=== PATIENT | female | born 1940 | race Caucasian/White ===

== ENCOUNTER → 2020-05-12 17:11 | Outpatient (CLI) | payer MEDICARE, SELFPAY ==
[2020-05-12 20:18] LABS: Thyroid Stimulating Hormone 2.09 uIU/mL (0.465-4.68)
[2020-05-14 20:02] LABS: Vitamin B12 >2000 pg/mL (232-1245)
== END ==
PROVIDERS: Visit Provider Nurse Practitioner Family
DX: F32.9 Major depressive disorder, single episode, unspecified (principal); G31.84 Mild cognitive impairment of uncertain or unknown etiology; R29.2 Abnormal reflex; Z68.29 Body mass index [BMI] 29.0-29.9, adult
CPT/HCPCS: 36415; 82607; 84443

== ENCOUNTER → 2020-05-20 12:15 | Outpatient (CLI) | payer MEDICARE, SELFPAY ==
[2020-05-20 12:34] LABS: Blood Urea Nitrogen 15 mg/dl (7-17); Estimated Glomerular Filt Rate 96 ml/min (>60); GFR (African American) 116 ML/MIN (>60)
--- NOTE | 2020-05-20 12:42 | MR_ITS ---
PROCEDURE: MR LUMBAR SPINE WO/W CON CLINICAL INDICATION: back pain, headache HX 3 BACK SURGERIES LAST ONE WAS IN 98. BILATERAL LBP [id number]. FALLING FREQUENTLY. RT LEG PAIN, NUMBNESS, AND TINGLING. NO PRIOR. COMPARISON: MR BRW/O MRI-BRAIN W/O from 10/25/2016 TECHNIQUE: Standard multiplanar multiecho sequences are performed without and with contrast. 3-D MIP and myelographic images are also rendered and reviewed FINDINGS: There is normal alignment. Spinal cord ends at the L1-L2 level. T12-L1: Unremarkable. L1-L2: Unremarkable. L2-L3: Unremarkable. L3-L4: There is mild degenerative disc disease with bulging disc along with facet and ligamentum hypertrophy with resultant bilateral lateral recess and foraminal narrowing also with canal stenosis 9 mm. L4-5: There are postsurgical changes at L4-5 with artifact. There is a disc spacer device. There has been prior posterior laminectomy. There is 2 mm anterolisthesis of L4. Artifact is present at this level which somewhat obscures fine detail. No canal stenosis is evident. There is mild bilateral foraminal narrowing from the facet hypertrophy. No evidence of enhancing epidural fibrosis. L5-S1: Degenerate disc disease with mild bulging disc with facet and ligamentum hypertrophy. There is moderate right-sided foraminal narrowing and mild left foraminal narrowing. The there is a small central disc protrusion/herniation very slightly eccentric toward the left Incidental note is made of multiple small bilateral renal cysts IMPRESSION: 1. L3-L4: There is mild degenerative disc disease with bulging disc along with facet and ligamentum hypertrophy with resultant bilateral lateral recess and foraminal narrowing also with canal stenosis 9 mm. 2. L4-5: There are postsurgical changes at L4-5 with artifact. There is a disc spacer device. There has been prior posterior laminectomy. There is 2 mm anterolisthesis of L4. Artifact is present at this level which somewhat obscures fine detail. No canal stenosis is evident. There is mild bilateral foraminal narrowing from the facet hypertrophy. No evidence of enhancing epidural fibrosis. 3. L5-S1: Degenerate disc disease with mild bulging disc with facet and ligamentum hypertrophy. There is moderate right-sided foraminal narrowing and mild left foraminal narrowing. The there is a small central disc protrusion/herniation very slightly eccentric toward the left which abuts the medial aspect of the right S1 nerve root without displacement Dictated b Alfred Delcid MD 05/21/2020 11:35 Alfred Delcid MD in [facility] 05/21/2020 11:35
--- NOTE | 2020-05-20 14:08 | CT_ITS ---
PROCEDURE: CT HEAD/BRAIN WO/W CON CLINICAL INDICATION: back pain, headache Extreme dizziness with headache COMPARISON: MR BRW/O MRI-BRAIN W/O from 10/25/2016 TECHNIQUE: IV Contrast: 100ML OPITRAY 320 Axial images obtained. All CT scans at the facility use one or more dose reduction, viz: automated exposure control, ma/kV adjustment per patient size (including targeted exams where dose is matched to indication, i.e. head), or iterative reconstruction technique. FINDINGS: No midline shift, mass effect, intracranial hemorrhage, hydrocephalus, or extra-axial fluid collection is evident. There is generalized atrophy with hypoattenuation of the periventricular white matter consistent with microangiopathic changes. In the inferior aspect of the left frontal lobe there is a prominent cortical draining vein with a caput medusa sign along the inferior aspect of the anterior horn the left lateral ventricle consistent with a prominent venous angioma. The calvarium has an unremarkable appearance. No mastoid effusion . Mild mucosal thickening noted of the ethmoid sinuses. IMPRESSION: 1. Left frontal venous angioma. No evidence of acute intracranial hemorrhage. This may have been present on the old MRI of 10/25/2016 but not readily apparent due to lack of contrast enhancement. 2. Involutional changes of age with mild atrophy and mild periventricular ischemic gliotic changes 3. No acute intracranial findings Dictated b Alfred Delcid MD 05/21/2020 12:07 Alfred Delcid MD in [facility] 05/21/2020 12:07
== END ==
PROVIDERS: PCP Family Medicine; Visit Provider Specialist
DX: R51 Headache; M54.5 Low back pain; G31.84 Mild cognitive impairment of uncertain or unknown etiology; H81.13 Benign paroxysmal vertigo, bilateral
CPT/HCPCS: 36415; 70470; 72158; 76376; 82565; 84520; A9576; Q9967

== ENCOUNTER 2020-06-05 15:00 | Outpatient (RCR) | payer MEDICARE, SELFPAY ==
--- NOTE | 2020-06-02 17:24 | [facility].PTOPEV ---
PT Outpatient Evaluation Rehab PT Outpatient Evaluation Start: 06/02/20 15:57 Freq: Status: Active Protocol: Document 06/02/20 15:57 [id number] (Rec: 06/02/20 17:24 PDESEROUX [id number]) Electronically Signed By Bradley Das, PT 06/02/20 15:57 Outpatient Therapy Subjective History Subjective History Pt. is a 79 year old female who presents to outpatient PT clinic w/ complaints of subacute and constant LBP! of insidious onset 1 month ago. Pt. reports symptoms all the way across my LB, but denies radicular symptoms into BLEs. Pt. reports having 3 LB surgeries in the past. Recent diagnostic imaging(see MRI) positive for severe OA per pt. report. Pt. denies injections for current pathology, but does reports symptom relief w/ Prednisone pack. Pt. RTMD in 2 months from 05/27/20. Pt. returns to [facility] on 06/04/20. Pt. also presents w/ complaints of chronic and positional dependent dizziness /nausea of insidious onset 2.5 years ago. Pt. reports symptoms worsen w/ bending over while standing, standing from a seated position, and lying down. Recent diagnostic imaging(see CT scan of brain) positive for a L frontal venous angioma. Pt. reports a fullness in the R ear. Current medications include Combigan, Dorzolamide, Durezol , Ranexa, Amlodipine, Omeprazole, Hydralazine, Metformin, Losartan, Carvedilol, Coumadin, [place], Xanax, Vitamin B-12, and Valsartan. PMH includes L3/L4/ L5 spinal fusion, lumbar laminectomy, R SIMONA, Total Hysterectomy, Cholecystectomy, Appendectomy, Triple CABG, Cardiomegaly, Diabetes, 7
== END 2020-07-02 12:00 | disposition home or self-care (01) ==
LOC: PT.CARL 15:00
PROVIDERS: PCP Family Medicine; Visit Provider Specialist
DX: R51 Headache (principal); M48.061 Spinal stenosis, lumbar region without neurogenic claudication
CPT/HCPCS: 97010; 97014; 97110; 97140; 97163; G0283

== ENCOUNTER 2021-05-27 16:00 | Outpatient (RCR) | payer MEDICARE, SELFPAY | END 2021-05-28 14:00 | disposition home or self-care (01) | LOC: PT.CARL 16:00 | PROVIDERS: PCP Family Medicine; Visit Provider Orthopaedic Surgery Hand Surgery | DX: S52.501A Unspecified fracture of the lower end of right radius, initial encounter for closed fracture (principal) | CPT/HCPCS: 97010; 97014; 97110; 97140; 97163; G0283 ==

== ENCOUNTER 2023-12-30 19:39 | Emergency (ER) | payer MEDICARE, SELFPAY ==
[2023-12-30] VITALS (10 sets, daily range): BP systolic 120–188; BP diastolic 53–81; PULSE 74–89; RESP 15–20; TEMP 36.6–36.9; O2SAT 94–99; BMI 23.6
--- NOTE | 2023-12-30 19:38 | XR_ITS ---
PROCEDURE INFORMATION: Exam: XR Chest Exam date and time: 12/30/2023 8:04 PM Age: 83 years old Clinical indication: Injury or trauma; Fall; Blunt trauma (contusions or hematomas); Additional info: Fall, AMS TECHNIQUE: Imaging protocol: Radiologic exam of the chest. Views: 1 view. COMPARISON: CR XR HUMERUS LT 12/30/2023 8:04 PM FINDINGS: Lungs: No airspace consolidation. Pleural spaces: Unremarkable. No pleural effusion. No pneumothorax. Heart/Mediastinum: Unremarkable. No cardiomegaly. Vasculature: Aortic calcification. Bones/joints: Previous median sternotomy. Osteopenia. Degenerative change involving the shoulders and spine. IMPRESSION: No acute process.
--- NOTE | 2023-12-30 19:38 | CT_ITS ---
PROCEDURE INFORMATION: Exam: CT Cervical Spine Without Contrast Exam date and time: 12/30/2023 7:54 PM Age: 83 years old Clinical indication: Injury or trauma; Fall; Additional info: Fall, AMS TECHNIQUE: Imaging protocol: Computed tomography of the cervical spine without contrast. Radiation optimization: All CT scans at this facility use at least one of these dose optimization techniques: automated exposure control; mA and/or kV adjustment per patient size (includes targeted exams where dose is matched to clinical indication); or iterative reconstruction. COMPARISON: CT HEAD/BRAIN WO CON 12/30/2023 7:54 PM FINDINGS: Bones/joints: Nonspecific straightening. Vertebral body height and AP alignment is preserved. Moderate degenerative change about the dens. Mild to moderate prevertebral osteophytosis. Advanced bilateral facet joint degenerative change. No acute cervical spine fracture. No definite high-grade central canal stenosis within limitations of technique. Multilevel cervical foraminal stenoses. Lungs: Lung apices are normal. Pleural spaces: No visible pneumothorax. Vasculature: Vascular calcification. Soft tissues: Unremarkable. IMPRESSION: No acute cervical spine fracture.
--- NOTE | 2023-12-30 19:38 | CT_ITS ---
PROCEDURE INFORMATION: Exam: CT Head Without Contrast Exam date and time: 12/30/2023 7:54 PM Age: 83 years old Clinical indication: Injury or trauma; Patient HX: Fall yesterday, found today; Additional info: Fall, AMS TECHNIQUE: Imaging protocol: Computed tomography of the head without contrast. Radiation optimization: All CT scans at this facility use at least one of these dose optimization techniques: automated exposure control; mA and/or kV adjustment per patient size (includes targeted exams where dose is matched to clinical indication); or iterative reconstruction. COMPARISON: CT HEAD/BRAIN WO/W CON 05/20/2020 3:07 PM FINDINGS: Brain: Atrophy and chronic small vessel ischemic changes. No hemorrhage. No mass effect or midline shift. Cerebral ventricles: No ventriculomegaly. Paranasal sinuses: Visualized sinuses are unremarkable. No fluid levels. Mastoid air cells: Visualized mastoid air cells are well aerated. Bones/joints: Unremarkable. No acute fracture. Soft tissues: Unremarkable. IMPRESSION: Chronic changes in the brain but no acute intracranial abnormality.
--- NOTE | 2023-12-30 19:51 | CT_ITS ---
PROCEDURE INFORMATION: Exam: CT Pelvis Without Contrast; Skeletal Exam date and time: 12/30/2023 8:01 PM Age: 83 years old Clinical indication: Injury or trauma; Fall; Additional info: Fall, bilteral hi and midline pain TECHNIQUE: Imaging protocol: Computed tomography of the pelvis without contrast. Exam focused on the skeleton. Radiation optimization: All CT scans at this facility use at least one of these dose optimization techniques: automated exposure control; mA and/or kV adjustment per patient size (includes targeted exams where dose is matched to clinical indication); or iterative reconstruction. COMPARISON: CT LUMBAR SPINE WO CON 12/30/2023 7:59 PM FINDINGS: Limitations: Artifact arising from right hip arthroplasty hardware. Stomach and bowel: Diverticulosis without visible diverticulitis. Reproductive: Previous hysterectomy. Vasculature: Vascular calcification. Bones/joints: Osteopenia. There are degenerative changes involving the lumbar spine, sacroiliac joints and left hip joint. Diffuse osteopenia. Previous right hip arthroplasty. No acute fracture or dislocation. Soft tissues: Small fat containing umbilical hernia. IMPRESSION: No acute osseous abnormality.
--- NOTE | 2023-12-30 19:51 | XR_ITS ---
PROCEDURE INFORMATION: Exam: XR Left Shoulder Exam date and time: 12/30/2023 8:04 PM Age: 83 years old Clinical indication: Injury or trauma; Fall; Blunt trauma (contusions or hematomas); Shoulder; Left; Additional info: Fall, L ehoulder and elbow pain TECHNIQUE: Imaging protocol: Radiologic exam of the left shoulder. Views: 2 or more views. COMPARISON: CR XR HUMERUS LT 12/30/2023 8:04 PM FINDINGS: Bones/joints: Osteopenia. There are degenerative changes. No acute fracture or dislocation. Soft tissues: Normal. IMPRESSION: No acute osseous abnormality.
--- NOTE | 2023-12-30 19:51 | XR_ITS ---
PROCEDURE INFORMATION: Exam: XR Left Humerus Exam date and time: 12/30/2023 8:04 PM Age: 83 years old Clinical indication: Injury or trauma; Fall; Blunt trauma (contusions or hematomas); Arm, upper; Left; Additional info: Fall, L ehoulder and elbow pain TECHNIQUE: Imaging protocol: Radiologic exam of the left humerus. Views: 2 or more views. COMPARISON: CR XR SHOULDER LT MIN 2V 12/30/2023 8:04 PM FINDINGS: Bones/joints: Osteopenia. There are degenerative changes. No acute fracture or dislocation. Soft tissues: Normal. IMPRESSION: No acute osseous abnormality.
--- NOTE | 2023-12-30 19:51 | CT_ITS ---
PROCEDURE INFORMATION: Exam: CT Abdomen And Pelvis Without Contrast Exam date and time: 12/30/2023 8:05 PM Age: 83 years old Clinical indication: Injury or trauma; Fall; Additional info: Fall, abd pain TECHNIQUE: Imaging protocol: Computed tomography of the abdomen and pelvis without contrast. Radiation optimization: All CT scans at this facility use at least one of these dose optimization techniques: automated exposure control; mA and/or kV adjustment per patient size (includes targeted exams where dose is matched to clinical indication); or iterative reconstruction. COMPARISON: CT BONY PELVIS 12/30/2023 8:01 PM FINDINGS: Liver: Nodular hepatic margins concerning for hepatic cirrhosis. Gallbladder and bile ducts: Previous cholecystectomy. Pancreas: Normal. No ductal dilation. Spleen: There are indeterminate splenic hypodensities measuring up to 1 cm. Adrenal glands: Normal. No mass. Kidneys and ureters: There are indeterminate lesions involving the bilateral kidneys measuring up to 1.2 cm. There are bilateral renal cysts measuring up to 1.2 cm on the left and 3.3 cm on the right. Symmetric bilateral perinephric infiltration, nonspecific however typically chronic. No hydronephrosis or hydroureter. Stomach and bowel: Diverticulosis without diverticulitis. Appendix: No evidence of appendicitis. Intraperitoneal space: Unremarkable. No free air. No significant fluid collection. Vasculature: Vascular calcification. Lymph nodes: Unremarkable. No enlarged lymph nodes. Urinary bladder: Unremarkable as visualized. Reproductive: Previous hysterectomy. Bones/joints: There are degenerative changes involving the spine. Chronic left L3 transverse process fracture. Chronic appearing compression fracture at T11. Previous right hip arthroplasty. Previous fusion and laminectomy at L4-L5. Degenerative change involving the left hip joint. Soft tissues: Small fat containing umbilical hernia. IMPRESSION: 1. No definite acute abnormality involving the abdomen or pelvis within constraints of noncontrast examination. 2. Indeterminate bilateral renal hypodensities as above, nonemergent ultrasound may be considered. 3. Additional nonemergent findings as above. COMMENTS: Consistent with the [employer]'s Incidental Findings Committee white paper (J Am Lefty Radiol 2018): Any incidental renal lesion less than 1 cm or classified as too small to characterize, or any incidental cystic renal lesion characterized as simple-appearing, is likely benign. No follow-up imaging is recommended for these lesions per consensus recommendations based on imaging criteria.
--- NOTE | 2023-12-30 19:51 | CT_ITS ---
PROCEDURE INFORMATION: Exam: CT Thoracic Spine Without Contrast Exam date and time: 12/30/2023 7:57 PM Age: 83 years old Clinical indication: Injury or trauma; Fall; Additional info: Fall, midline t/l spine pain TECHNIQUE: Imaging protocol: Computed tomography of the thoracic spine without contrast. Radiation optimization: All CT scans at this facility use at least one of these dose optimization techniques: automated exposure control; mA and/or kV adjustment per patient size (includes targeted exams where dose is matched to clinical indication); or iterative reconstruction. COMPARISON: MR LUMBAR SPINE WO/W CON 05/20/2020 12:57 PM FINDINGS: Bones/joints: No acute fracture. Normal alignment. No significant disc bulge or herniation. No severe spinal canal stenosis. No significant neural foraminal narrowing. Soft tissues: Unremarkable. IMPRESSION: Unremarkable CT Spine.
--- NOTE | 2023-12-30 19:51 | CT_ITS ---
PROCEDURE INFORMATION: Exam: CT Lumbar Spine Without Contrast Exam date and time: 12/30/2023 7:59 PM Age: 83 years old Clinical indication: Injury or trauma; Fall; Additional info: Fall, midline t/l spine pain TECHNIQUE: Imaging protocol: Computed tomography of the lumbar spine without contrast. Radiation optimization: All CT scans at this facility use at least one of these dose optimization techniques: automated exposure control; mA and/or kV adjustment per patient size (includes targeted exams where dose is matched to clinical indication); or iterative reconstruction. COMPARISON: MR LUMBAR SPINE WO/W CON 05/20/2020 12:57 PM FINDINGS: Bones/joints: Mild loss of superior endplate height at T11 is chronic in appearance. Remainder demonstrates preserved height and AP alignment. Previous interbody fusion at L4-L5 with laminectomy. [id number] prevertebral osteophytosis. Bilateral facet joint degenerative change. No acute lumbar spine fracture. Chronic fracture involving the left L3 transverse process. Central canal stenosis greatest at L3-L4, at least moderate. Vasculature: Vascular calcification. Soft tissues: Unremarkable. IMPRESSION: 1. No acute osseous abnormality. 2. Suspect at least moderate central canal stenosis at L3-L4.
--- NOTE | 2023-12-30 19:51 | CT_ITS ---
PROCEDURE INFORMATION: Exam: CT Chest Without Contrast; Diagnostic Exam date and time: 12/30/2023 8:05 PM Age: 83 years old Clinical indication: Injury or trauma; Fall; Additional info: Right chest wall pain TECHNIQUE: Imaging protocol: Diagnostic computed tomography of the chest without contrast. Radiation optimization: All CT scans at this facility use at least one of these dose optimization techniques: automated exposure control; mA and/or kV adjustment per patient size (includes targeted exams where dose is matched to clinical indication); or iterative reconstruction. COMPARISON: CR XR CHEST PORTABLE 12/30/2023 8:04 PM FINDINGS: Lungs: Scarring at the lung apices. Pulmonary emphysema. Bilateral posterior dependent hypoventilatory change, mild. No airspace consolidation. No pulmonary contusion or laceration. Pleural spaces: Unremarkable. No pneumothorax. No pleural effusion. Heart: Unremarkable. No cardiomegaly. No pericardial effusion. Lymph nodes: Calcified mediastinal and right hilar lymph nodes. Vasculature: Aortic calcification without aneurysm. Diaphragm: Small hiatal hernia. Liver: Nodular hepatic morphology concerning for hepatic cirrhosis. Pancreas: Pancreatic atrophy. Spleen: There are indeterminate splenic hypodensities measuring up to 1 cm. Kidneys and ureters: There are small indeterminate superior left renal lesions, ultrasound may be considered. Bones/joints: There are degenerative changes involving the spine. Previous median sternotomy. Mild loss of superior endplate height at T11 is chronic in appearance. Soft tissues: Unremarkable. IMPRESSION: 1. No acute abnormality involving the chest. 2. Nonemergent findings as above.
--- NOTE | 2023-12-30 19:51 | XR_ITS ---
PROCEDURE INFORMATION: Exam: XR Left Elbow Exam date and time: 12/30/2023 8:04 PM Age: 83 years old Clinical indication: Injury or trauma; Fall; Blunt trauma (contusions or hematomas); Elbow; Left; Additional info: Fall, L ehoulder and elbow pain TECHNIQUE: Imaging protocol: Radiologic exam of the left elbow. Views: 3 or more views. COMPARISON: CR XR HUMERUS LT 12/30/2023 8:04 PM FINDINGS: Tubes, catheters and devices: IV catheter at the antecubital fossa. Bones/joints: Osteopenia. No acute fracture or dislocation. Soft tissues: Normal. IMPRESSION: No acute osseous abnormality.
--- NOTE | 2023-12-30 19:53 | XR_ITS ---
PROCEDURE INFORMATION: Exam: XR Left Hip Exam date and time: 12/30/2023 8:04 PM Age: 83 years old Clinical indication: Injury or trauma; Fall; Blunt trauma (contusions or hematomas); Left; Hip; Additional info: Fall, bilateral hip pain TECHNIQUE: Imaging protocol: Radiologic exam of the left hip. Views: 2 or 3 views hip with pelvis when performed. COMPARISON: CT BONY PELVIS 12/30/2023 8:01 PM FINDINGS: Bones/joints: Previous right hip arthroplasty. No hardware failure. Diffuse osteopenia. Degenerative change involving the lumbar spine, sacroiliac joints and left hip joint. No definite acute fracture or dislocation. Soft tissues: Unremarkable. Vasculature: Vascular calcification. IMPRESSION: No acute osseous abnormality.
--- NOTE | 2023-12-30 19:53 | XR_ITS ---
PROCEDURE INFORMATION: Exam: XR Left Femur Exam date and time: 12/30/2023 8:04 PM Age: 83 years old Clinical indication: Injury or trauma; Fall; Blunt trauma; Thigh or upper leg; Left; Additional info: Fall, L hip and femur pain TECHNIQUE: Imaging protocol: Radiologic exam of the left femur. Views: 2 views. COMPARISON: CR XR HIP LT 2-3V W/PELVIS 12/30/2023 8:04 PM FINDINGS: Bones/joints: There are degenerative changes. Diffuse osteopenia. No definite acute fracture or dislocation. Soft tissues: Unremarkable. Vasculature: Vascular calcification. IMPRESSION: No acute osseous abnormality.
[2023-12-30 19:56] LABS: Basophils % 0.4 % (0.1-2.0); Eosinophils # 0.1 K/mm3 (0.0-0.4); Eosinophils % 0.6 % (0.1-12.0); Hemoglobin 12.4 g/dL (12.2-16.2); Mean Corpuscular HGB Conc 33.4 g/dL (31.8-35.4); Mean Corpuscular Hemoglobin 36.3 pg (27.0-31.2); Mean Corpuscular Volume 108.7 fl (81-99); Mean Platelet Volume 8.8 fl (7.4-10.4); Monocytes # 0.6 K/mm3 (0.1-1.0); Monocytes % 4.6 % (1.7-9.3); Neutrophils # 10.6 K/mm3 (1.8-7.8); Neutrophils % 86.4 % (37.0-80.0); Platelet Count 113 K/mm3 (142-424); Red Blood Count 3.41 M/mm3 (4.20-5.40); White Blood Count 12.3 K/mm3 (4.8-10.8)
[2023-12-30 19:57] LABS: MANUAL DIFFERENTIAL MANUAL DIFFERENTIAL (MANUAL DIFF)
--- NOTE | 2023-12-30 20:05 | ED_ITS ---
Discharge Plan Disposition Patient Disposition: Still a Patient Chief Complaint: Fall Prescriptions Prescriptions: No Action warfarin 2 mg tablet 2 mg PO .COMPLEX Rx Instructions: 2 mg PO tues,thus,sun; warfarin [Coumadin] 2.5 mg tablet 1.5 mg PO .COMPLEX Rx Instructions: 1.5 mg PO mon,wed,fri,,sat; on odd numbered days carvedilol 6.25 mg tablet 6.25 mg PO Q8H Rx Instructions: must administer with a meal/food hydrocodone-acetaminophen 5-325 mg tablet 1 tab PO QHS PRN valsartan 160 mg tablet 160 mg PO DAILY 30 Days Qty: 30 ranolazine 500 mg tablet extended release 12 hr 1,000 mg PO BID 30 Days Qty: 120 omeprazole 40 mg capsule,delayed release(DR/EC) 40 mg PO DAILY 30 Days Qty: 30 metformin 500 mg tablet extended release 24 hr 500 mg PO BID 90 Days Qty: 180 alprazolam 0.5 mg tablet 0.25 mg PO HS 30 Days Qty: 15 amlodipine 10 mg tablet 10 mg PO DAILY atorvastatin 80 mg tablet 80 mg PO DAILY 90 Days Qty: 90 dorzolamide 2 % drops OPHTHALMIC 37 Days difluprednate 0.05 % drops OPHTHALMIC 25 Days brimonidine-timolol 0.2-0.5 % drops OPHTHALMIC 37 Days hydralazine 10 mg tablet 10 mg PO BID 90 Days Qty: 180 aspirin 81 mg tablet,chewable 81 mg PO DAILY duloxetine 60 mg capsule,delayed release(DR/EC) 60 mg PO DAILY 30 Days Qty: 30 2RF methylprednisolone [Medrol ([place])] 4 mg tablets,dose pack See Rx Instructions PO PER PKG DIR Qty: 21 1RF Rx Instructions: Take as directed now and refill as needed for severe back pain nystatin-triamcinolone 100,000-0.1 unit/gram-% ointment 1 applic TOPICAL DAILY Qty: 30 3RF Referrals Follow up/Referrals: Jay Howell MD [Primary Care Provider] - See instructions Clinical Impressions Clinical Impression: Fall, CHI (closed head injury), Dehydration, Acute hypokalemia Discharge ED Provider: Yuval Solares General Adult HPI General Chief complaint: Fall Stated complaint: Fall Time Seen by Provider: 12/30/23 19:40 History of Present Illness HPI narrative: This is an 83-year-old female with history of hypertension, hyperlipidemia, CAD status post CABG currently on Coumadin presenting with fall and altered mental status. Patient was found down today. She states the last time she was standing was yesterday evening, 12/28 in the PM. She was in the bathroom and accidentally stumbled backward hitting her head and back on the floor. Laid there for approximately 10 hours, if not more. She is unsure. She was found by unknown person, EMS was called and brought patient to the emergency department. Patient complaining of left-sided shoulder and arm pain, left-sided hip pain, chest wall pain, head and neck pain, abdominal pain, etc. States that she remembers some of the event, but most of it is fuzzy. Denies vision changes, chest pain, shortness of breath, nausea or vomiting, or any other concerns at this time. Related Data Home Medications Medication Instructions Recorded Confirmed alprazolam 0.5 mg tablet 0.25 mg PO HS 30 days #15 tabs 12/25/18 05/27/20 amlodipine 10 mg tablet 10 mg PO DAILY 12/25/18 05/27/20 aspirin 81 mg chewable tablet 81 mg PO DAILY 12/25/18 05/27/20 atorvastatin 80 mg tablet 80 mg PO DAILY 90 days #90 tabs 12/25/18 05/27/20 brimonidine 0.2 %-timolol 0.5 % ophthalmic (eye) 37 days 12/25/18 05/27/20 eye drops difluprednate 0.05 % eye drops ophthalmic (eye) 25 days 12/25/18 05/27/20 dorzolamide 2 % eye drops ophthalmic (eye) 37 days 12/25/18 05/27/20 hydralazine 10 mg tablet 10 mg PO BID 90 days #180 tabs 12/25/18 05/27/20 metformin 500 mg tablet,extended 500 mg PO BID 90 days #180 tabs 12/25/18 05/27/20 release 24 hr omeprazole 40 mg capsule,delayed 40 mg PO DAILY 30 days #30 caps 12/25/18 05/27/20 release ranolazine 500 mg tablet,extended 1,000 mg PO BID 30 days #120 tabs 12/25/18 05/27/20 release,12 hr valsartan 160 mg tablet 160 mg PO DAILY 30 days #30 tabs 12/25/18 05/27/20 carvedilol 6.25 mg tablet 6.25 mg PO Q8H 05/12/20 05/27/20 hydrocodone 5 mg-acetaminophen 325 1 tab PO QHS PRN 05/12/20 05/27/20 mg tablet warfarin 2 mg tablet 2 mg PO .COMPLEX 05/12/20 05/27/20 warfarin 2.5 mg tablet (Coumadin) 1.5 mg PO .COMPLEX 05/12/20 05/27/20 Previous Rx's Medication Instructions Recorded duloxetine 60 mg capsule,delayed 60 mg PO DAILY 30 days #30 caps 05/27/20 release methylprednisolone 4 mg tablets in See Rx Instructions PO PER PKG DIR 05/27/20 a dose pack (Medrol ([place])) #21 tabs nystatin-triamcinolone 100,000 1 applic topical DAILY #30 grams 07/15/21 unit/gram-0.1 % topical ointment Allergies Allergy/AdvReac Type Severity Reaction Status Date / Time morphine Allergy Unknown Verified 05/27/20 08:49 macrodantin Allergy Intermediate Uncoded 05/12/20 15:30 [facility] Disclaimer: The information contained in this section may have been updated after the patient was seen, as this information can be updated by other users. Social History Smoking Status: Former smoker alcohol intake: never substance use type: denies use current occupational status: retired Travel in the last 8 weeks: None household members: spouse housing: house ROS Obtained: Yes All systems reviewed & no additional complaints except as documented Physical Exam General General appearance: alert and in no apparent distress Head Head exam: atraumatic, normocephalic and other (Tenderness to the occiput) Eye Eye exam: Present normal appearance, PERRL, EOMI and other (Bilateral chemosis) ENT ENT exam: Present mucous membranes dry Neck Neck exam: Present trachea midline and tenderness (Cervical spine, placed in collar) Chest Chest inspection: Present tenderness (Left-sided chest wall. No outward signs of injury or deformity) Respiratory Respiratory exam: Present normal lung sounds bilaterally; Absent respiratory distress, wheezes, stridor, accessory muscle use or prolonged expiratory phase Cardiovascular Cardiovascular exam: Present regular rate and normal rhythm Abdominal Exam Abdominal exam: Present soft and tenderness; Absent distention, guarding, rebound or rigidity Abdominal tenderness: Present diffuse and mild Extremities Exam Extremities exam: Present other (Bruising about bilateral lower extremities. Tender in left inguinal fold. Active and passive range of motion of the hips intact, but limited secondary to discomfort.); Absent edema Back Exam Back exam: Present tenderness (Wound entire spine, no outward signs of injury, deformity, step-offs, or otherwise) Neurological Exam Neurological exam: Present alert, oriented X3, CN II-XII intact and normal gait; Absent motor sensory deficit Skin Skin exam: Present warm and dry; Absent diaphoresis or erythema Medical Decision Making Medical Records Medical records reviewed: Yes I reviewed the patient's medical records. [place] Inquiry Pt receiving controlled substance: No [place] was queried for this patient: No Vital Signs: 12/30/23 19:39 12/30/23 19:49 12/30/23 20:30 Temperature 98.3 F Temperature Source Oral Pulse Rate 81 74 Pulse Rate [Right Brachial] 81 Respiratory Rate 18 20 19 Blood Pressure 179/81 H 179/71 H Blood Pressure [Right Arm] 188/77 H Blood Pressure Mean 141 112 Blood Pressure Mean [Right Arm] 114 Blood Pressure Source [Right Arm] Automatic Cuff Blood Pressure Position [Right Arm] Supine 02 Sat by Pulse Oximetry 99 98 99 Oxygen Delivery Method Room Air 12/30/23 21:00 12/30/23 21:30 12/30/23 22:00 Temperature Temperature Source Pulse Rate 84 78 76 Pulse Rate [Right Brachial] Respiratory Rate 15 20 18 Blood Pressure 158/71 H 168/73 H 175/71 H Blood Pressure [Right Arm] Blood Pressure Mean 100 104 104 Blood Pressure Mean [Right Arm] Blood Pressure Source [Right Arm] Blood Pressure Position [Right Arm] 02 Sat by Pulse Oximetry 98 97 98 Oxygen Delivery Method Room Air Room Air 12/30/23 22:31 Temperature Temperature Source Pulse Rate 77 Pulse Rate [Right Brachial] Respiratory Rate 16 Blood Pressure 185/70 H Blood Pressure [Right Arm] Blood Pressure Mean 100 Blood Pressure Mean [Right Arm] Blood Pressure Source [Right Arm] Blood Pressure Position [Right Arm] 02 Sat by Pulse Oximetry 98 Oxygen Delivery Method Room Air Lab Data Lab Results 12/30/23 19:38: VBG pH 7.41, VBG pCO2 33.6 L, VBG pO2 48.9 H, VBG HCO3 20.7 L, V BG Total CO2 21.7 L, VBG O2 Saturation 83.5 H, VBG Base Excess -4.0 L, VBG Lactic Acid 2.4 H 12/30/23 19:46: WBC 12.3 H, RBC 3.41 L, Hgb 12.4, Hct 37.0, MCV 108.7 H, MCH 36.3 H, MCHC 33.4, RDW 14.0, Plt Count 113 L, MPV 8.8, Neut % (Auto) 86.4 H, L ymph % (Auto) 8.0 L, [place] % (Auto) 4.6, Eos % (Auto) 0.6, Baso % (Auto) 0.4, N eut # (Auto) 10.6 H, Lymph # (Auto) 1.0, [place] # (Auto) 0.6, Eos # (Auto) 0.1, Baso # (Auto) 0.0, Total Counted 100, Neutrophils % (Manual) 83 H, Lymphocytes % (Manual) 13, Monocytes % (Manual) 4, Platelet Estimate Slight decrease, Macrocytosis 2+, PT 30.3 H, INR 3.02 H, Sodium 137, Potassium 3.3 L, Chloride 106, Carbon Dioxide 21 L, Anion Gap 13.3, BUN 19 H, Creatinine 0.70, Estimated Creat Clear 40, Estimated GFR 80, Est GFR ( Amer) 96, Glucose 131 H, Calcium 9.3, Total Bilirubin 1.4 H, AST 46 H, ALT 47, Alkaline Phosphatase 71, T otal Creatine Kinase 172 H, Troponin I 0.05 H, NT-Pro-B Natriuret Pep 1870 H, Total Protein 6.8, Albumin 4.1, Globulin 2.7, Albumin/Globulin Ratio 1.5 12/30/23 21:35: Urine Color Yellow, Urine Appearance Slightly cloudy, Urine pH 6.0, Ur Specific [place] 1.020, Urine Protein 2+, Urine Glucose (UA) Negative, Urine Ketones Negative, Urine Blood Trace-i, Urine Nitrate Negative, Urine Bilirubin Negative, Urine Urobilinogen 0.2, Ur Leukocyte Esterase Negative, Urine RBC Occasional, Urine WBC None, Ur Squamous Epith Cells Occasional, Urine Bacteria None, Hyaline Casts 3-5 12/30/23 19:46 12/30/23 19:46 Orders (Tests/Meds): ED MEDICATIONS Discontinued Medications Generic Name Dose Route Start Last Admin Trade Name Freq PRN Reason Stop Dose Admin Bacitracin 1 gm 12/30/23 21:52 12/30/23 22:16 Bacitracin Zinc Oint 30gm Tube TP 12/30/23 21:53 1 applic ONCE ONE Administration Lactated Ringer's 1,000 mls @ 999 mls/hr 12/30/23 19:38 12/30/23 21:09 Lactated Ringer's 1000 Ml Bag IV 12/30/23 20:38 999 mls/hr .Q1H1M ONE Administration ORDERS Category Date Time Status CT abdomen pelvis wo con Stat Cat Scan 12/30/23 19:[address] bony pelvis Stat Cat Scan 12/30/23 19:[address] cervical spine wo con Stat Cat Scan 12/30/23 19:[address] chest wo con Stat Cat Scan 12/30/23 19:[address] head/brain wo con Stat Cat Scan 12/30/23 19:[address] lumbar spine wo con Stat Cat Scan 12/30/23 19:[address] thoracic spine wo con Stat Cat Scan 12/30/23 19:51 Completed CXR --portable [XR chest portable] Stat Exams 12/30/23 19:38 Completed Elbow XR left mininum 3 views [XR elbow LT min 3V] Stat Exams 12/30/23 19:51 Completed Femur XR left 2 views [XR femur LT 2V] Stat Exams 12/30/23 19:53 Completed Hip XR left minimum 2 views [XR hip LT 2-3V w/pelvis] Exams 12/30/23 19:53 Completed Stat Humerus XR left [XR humerus LT] Stat Exams 12/30/23 19:51 Completed XR shoulder LT min 2V Stat Exams 12/30/23 19:51 Completed Brain Natriuretic Peptide Stat Lab 12/30/23 19:46 Completed CBC w/Auto Diff [Complete Blood Count Auto Diff] Stat Lab 12/30/23 19:46 Completed CK [Creatine Kinase] Stat Lab 12/30/23 19:46 Completed CMP [Comprehensive Metabolic Panel] Stat Lab 12/30/23 19:46 Completed INR [Prothrombin Time INR] Stat Lab 12/30/23 19:46 Completed Trop I [Troponin I] Stat Lab 12/30/23 19:46 Completed Troponin I Q3H Lab 12/30/23 22:45 Ordered Troponin I Q3H Lab 12/31/23 01:45 Ordered UA [Urinalysis and Microscopic] Stat Lab 12/30/23 21:35 Completed VBG [Venous Blood Gas] Stat RT 12/30/23 19:38 Completed Medical Decision Narrative: This is an 83-year-old female with history of hypertension, hyperlipidemia, CAD status post CABG currently on Coumadin presenting with fall and altered mental status. Patient was found down today. She states the last time she was standing was yesterday evening, 12/28 in the PM. She was in the bathroom and accidentally stumbled backward hitting her head and back on the floor. Laid there for approximately 10 hours, if not more. She is unsure. She was found by unknown person, EMS was called and brought patient to the emergency department. Patient complaining of left-sided shoulder and arm pain, left-sided hip pain, chest wall pain, head and neck pain, abdominal pain, etc. States that she remembers some of the event, but most of it is fuzzy. Denies vision changes, chest pain, shortness of breath, nausea or vomiting, or any other concerns at this time. History was obtained via conversation with patient. On arrival, patient hemodynamically stable, alert, oriented x4, appropriate, GCS 15, moving all extremities spontaneously, pupils equal and reactive to light. Full physical exam performed and significant for chronically ill-appearing woman in no acute distress. She has tenderness about the posterior aspect of her head without hematoma. No basilar skull or depressed skull fracture findings. Midline cervical spinal tenderness without step-off or deformity, placed in c- collar. Chest wall tenderness, left upper extremity tenderness, left hip tenderness, left lower extremity bruising and tenderness, but range of motion intact and neurovascularly intact. Patient has diffuse spinal tenderness without outward signs of injury or deformity. Differential includes intracranial bleed, cervical spine injury, cord injury, thoracic or lumbar spine injury, left extremity fracture, dislocation, sprain, strain, ACS, OK, pneumothorax, metabolic abnormality, rhabdomyolysis, among others Patient was given fluid bolus for symptomatic management and correction of underlying abnormalities. Workup independently interpreted and significant for leukocytosis 12.3. INR 3.0. VBG with normal pH, lactate 2.4. Mild hypokalemia. CK only mildly elevated at 172, patient given IV fluids for this. Initial BNP 1870, troponin 0.05. Chest x-ray without acute cardiopulmonary airspace disease. Left upper extremity films negative, no evidence of left hip fracture. CT head without acute intracranial hemorrhage, CT C, T, L-spine without acute fracture. CT chest without contrast without left-sided rib fractures. See radiology read for full review of final results. Independent interpretation of EKG shows sinus rhythm with sinus arrhythmia. [address] or T wave changes concerning for acute ischemia. OK, QRS, QT intervals within normal notes. Patient was placed in observation beginning at 8 PM in order to vomiting OK with delta troponins and determine need for admission versus home-going. The patient was provided fluids, monitoring while awaiting results. Prior to delta troponin and disposition, care ended up to coming physician. Critical Care Critical Care Time Critical Care Time: No
[2023-12-30 20:06] LABS: Alanine Aminotransferase 47 U/L (12-78); Albumin Level 4.1 g/dl (3.5-5.0); Albumin/Globulin Ratio 1.5 (1.1-1.8); Alkaline Phosphatase 71 U/L (38-126); Anion Gap 13.3 mEq/L (5-15); Aspartate Amino Transferase 46 U/L (14-36); Bilirubin,Total 1.4 mg/dl (0.2-1.3); Blood Urea Nitrogen 19 mg/dl (7-17); Calcium 9.3 mg/dl (8.4-10.2); Carbon Dioxide 21 mmol/L (22.0-30.0); Chloride 106 mmol/L (98-107); Creatine Kinase 172 U/L (30-135); Creatinine Clearance Estimated 40 mL/min (50-200); Estimated Glomerular Filt Rate 80 ml/min (>60); GFR (African American) 96 ML/MIN (>60); Globulin 2.7 g/dL (1.3-3.2); Glucose 131 mg/dl (74-100); Potassium 3.3 mmoL/L (3.5-5.1); Sodium 137 mmol/L (136-145); Total Protein,Serum 6.8 g/dl (6.3-8.2)
[2023-12-30 20:11] LABS: Lactate Venous 2.4 mmol/L (0.4-2.0); VBG HCO3 20.7 mmol/L (23-30); VBG Oxygen Saturation 83.5 % (50-70); VBG PCO2 33.6 mmol/L (35-51); VBG PH 7.41 mmol/L (7.31-7.41); VBG PO2 48.9 mmol/L (28-40); VBG Total CO2 21.7 mmol/L (23-27)
[2023-12-30 20:18] LABS: NT Pro Brain Natriuretic Pep. 1870 pg/mL (0-450); Troponin I 0.05 ng/ml (0.00-0.034)
[2023-12-30 20:23] LABS: INR 3.02 (0.9-1.1); Prothrombin Time 30.3 seconds (10.1-12.5)
--- NOTE | 2023-12-30 20:27 | ECG_ITS ---
APPROVED REPORT Exam: Resting ECG HR:78 bpm ECG Measurements Heart Rate 78 AXES ID 154 P 85 QRSd 86 QRS 72 QT 290 T 98 QTc 323 Conclusion SINUS RHYTHM sinus arrhythmia Electronically signed by : MEG ARRIAZA, 12/30/2023 23:58:21
[2023-12-30] MEDS: LACTATED RINGERS 1000ML 1,000 ML 999 ML IV (21:09)
[2023-12-30 21:13] LABS: Lymphocytes % 13 % (10-50); Macrocytosis 2+; Monocytes % 4 % (2-9); Neutrophils % 83 % (42-76); Platelet Estimate Slight Decrease; Total Cells Counted 100
[2023-12-30 21:41] LABS: Microscopic, Urine URINE MICROSCOPIC (MICROSCOPIC)
[2023-12-30 21:44] LABS: Bilirubin,Urine Negative (Negative); Blood, Urine TRACE-I (Negative); Color,Urine YELLOW (Yellow); Glucose,Urine (UA) Negative (Negative); Ketones,Urine Negative (Negative); Leukocyte Esterase,Urine Negative (Negative); Nitrate,Urine Negative (Negative); Protein,Urine 2+ (Negative); Urobilinogen,Urine 0.2 EU/dl (0.2)
[2023-12-30 21:55] LABS: Appearance,Urine Slightly Cloudy (Clear)
[2023-12-30] MEDS: BACITRACIN ZINC OINT 30GM TUBE TP (22:16)
[2023-12-30 22:17] LABS: RBC,Urine Occasional #/hpf (0-3); Squamous Epithelial Cell,Urine Occasional #/hpf (0-5)
--- NOTE | 2023-12-30 22:41 | PC.NURSE ---
checked in on pt, we cleaned and dressed skin tears on left arm and elbow. family is at bedside and she has no concerns at this time.
[2023-12-30 23:25] LABS: Troponin I 0.04 ng/ml (0.00-0.034)
== END 2023-12-30 23:47 | disposition home or self-care (01) ==
PROVIDERS: Emergency Medicine; Emergency Provider Emergency Medicine; PCP Emergency Medicine
DX: R41.82 Altered mental status, unspecified (principal); M25.512 Pain in left shoulder; M79.602 Pain in left arm; M25.552 Pain in left hip; R51.9 Headache, unspecified; M54.2 Cervicalgia; R07.89 Other chest pain; R10.9 Unspecified abdominal pain; E86.0 Dehydration; E87.6 Hypokalemia; W01.198A Fall on same level from slipping, tripping and stumbling with subsequent striking against other object, initial encounter; Z87.891 Personal history of nicotine dependence
CPT/HCPCS: 70450; 71045; 71250; 72125; 72128; 72131; 72192; 73030; 73060; 73080; 73502; 73552; 74176; 80053; 81001; 82550; 82803; 83880; 84484; 85007; 85025; 85610; 93005; 96360; 99285

== ENCOUNTER 2024-03-02 12:22 | Inpatient (IN) | payer MEDICARE, SELFPAY ==
[2024-03-02] VITALS (17 sets, daily range): BP systolic 123–182; BP diastolic 71–110; PULSE 131–142; RESP 16–28; TEMP 36.5–37.1; O2SAT 91–98; BMI 22.3; BMI 24.2
--- NOTE | 2024-03-02 12:23 | ECG_ITS ---
APPROVED REPORT Exam: Resting ECG HR:131 bpm ECG Measurements Heart Rate 131 AXES QRSd 118 QRS 72 QT 419 T 91 QTc 496 Conclusion ATRIAL FLUTTER/TACHYCARDIA WITH RAPID VENTRICULAR RESPONSE SEPTAL MYOCARDIAL INFARCTION , OF INDETERMINATE AGE [40+ ms Q WAVE IN V1/V2] MODERATE T-WAVE ABNORMALITY, CONSIDER LATERAL ISCHEMIA [-0.1+ mV T-WAVE IN I/aVL/V5/V6] MODERATE T-WAVE ABNORMALITY, CONSIDER INFERIOR ISCHEMIA [-0.1+ mV T-WAVE IN II/aVF] ABNORMAL ECG UNCONFIRMED REPORT Electronically signed by : MELANIE ALONSO, 03/03/2024 06:02:00
--- OUTSIDE RECORDS SUMMARY | 2024-03-02 12:33 | XMS_ITS | Continuity of Care Document ---
Author Name Unknown Address [address] [place] [id number] Organization [facility] Phone Care Team Providers Care Specimen Processor Name Role Phone KAVITHA MORALES Admitting KAVITHA MORALES Primary Attending [phone] KAVITHA MORALES Unavailable KEVIN RIBERA Primary Care ALLERGIES AND ADVERSE REACTIONS ALLERGIES AND ADVERSE REACTIONS Code System Allergy Substance Adverse Reaction Date Reaction (Severity) Comment Status Reported By Updated By [id number] RXNorm MACRODANTIN Rash Adverse reaction to substance mouth swells active [id number] on January 20, 2024 8:42:51 PM [facility] 7052 RXNorm MORPHINE Adverse reaction to substance pain active [id number] on January 20, 2024 8:42:51 PM [facility] FAMILY HISTORY RELATION: Father Status: Cause of : Malignant neoplastic disease Age at : 71 SNOMED-CT Diagnosis Age At Onset Information not available RELATION: Mother Status: Cause of : Malignant neoplastic disease Age at : 91 SNOMED-CT Diagnosis Age At Onset Information not available RELATION: Brother Status: Cause of : Unknown Age at : Unknown SNOMED-CT Diagnosis Age At Onset Information not available RELATION: Brother Status: Cause of : Unknown Age at : Unknown SNOMED-CT Diagnosis Age At Onset Information not available RELATION: Brother Status: Cause of : CVA - cerebrovascular accident due to cerebral artery occlusion Age at : Unknown SNOMED-CT Diagnosis Age At Onset Information not available RELATION: Sister Status: LIVING SNOMED-CT Diagnosis Age At Onset Information not available RELATION: Sister Status: Cause of : Malignant neoplastic disease Age at : Unknown SNOMED-CT Diagnosis Age At Onset Information not available RESULTS Patient: MICHELE SKYLER Rajat Date of : [birth year] 0 LABORATORY RESULTS Information is not available LABORATORY NARRATIVE RESULTS Information is not available RADIOLOGY RESULTS ORDER 100: MRI EXTREM UPR ROLAN INT LT WO (LOINC: 29544-0) ORDER DATE: January 20, 2024 5:22:00 PM [facility] PERFORMING LAB: [facility] [address] [id number] Final Result Date: January 20, 2024 7:32:[address] [place] [address] Name: SKYLER BAUTISTA Exam Date: 01/20/2024 : 1940 Age 83 years Gender: F Physician: KAVITHA MORALES Facility: [facility] Facility HSV: Outpatient Exam: MRI EXTREM UPR JOINT LT WO FINAL REPORT CLINICAL HISTORY: worsening chronic shoulder pain. lrom no known injury FINDINGS: Multiplanar MR imaging of the left shoulder was performed without contrast. There is motion on many of the images which decreases the sensitivity of the exam. There is a high-grade full-thickness tear of the distal supraspinatus tendon. A small portion of the tendon may be intact. There is mild muscle atrophy. There is a complete tear of the distal infraspinatus tendon. The tendon is retracted to the medial humeral head. There is mild muscle atrophy. There is moderate a.c. joint arthrosis. A small amount of fluid is present in the subacromial/subdeltoid bursa. No labral tear is identified. The long head of the biceps tendon is intact. No significant glenohumeral joint effusion is identified. The musculature is intact. There is no evidence of soft tissue mass or cyst. IMPRESSION: High-grade full-thickness tear of the distal supraspinatus tendon with mild muscle atrophy. Complete tear of the distal infraspinatus tendon with retraction to the medial humeral head and mild muscle atrophy. Moderate a.c. joint arthrosis with mild subacromial/subdeltoid bursitis. Reviewed, Interpreted and Dictated by Ramón Veliz III, MD Transcribed by Shauna Michael Authenticated and [facility] Dictated By: Ramón Veliz III Transcribed By: Transcribed On: 01/20/2024 3:32 PM Electronically signed by: Ramón Veliz III 01/20/2024 Thank you for referring SKYLER BAUTISTA to [facility]. Legally authenticated by CHANTAL Thornton III, MD 2024-01-20 15:32:00 PATHOLOGY NARRATIVE RESULTS Information is not available MICROBIOLOGY RESULTS No Micro Labs/Results Exist for Patient BLOOD ADMIN RESULTS Information is not available MEDICATIONS HOME MEDICATIONS Status RXNORM NDC Medication Dose Route Frequency Dates Comments Reported By Updated By Drug Treatment Unknown DISCHARGE MEDICATIONS Status RXNORM NDC Medication Dose Route Frequency Dates Comments Physician Updated By No Discharge Medication Info rmation Available INPATIENT MEDICATIONS Status RXNORM NDC Medication Dose Route Frequency Rat e Quantity Dates Comments Physician Updated By No Inpatient Medication Info rmation Available SOCIAL HISTORY SOCIAL HISTORY SNOMED-CT Social History Element Description Effective Dates Offered Cessation Comment UpdatedBy [id number] Historical Tobacco smoking status Never Smoked Not Applicable [id number] on April 07, 2016 4:52:02 AM [facility] [id number] Historical Tobacco smoking status Former Smoker Yes [id number] on June 09, 2015 6:14:54 PM [facility] SOCIAL HISTORY - Gender Sex: Female SOCIAL HISTORY - Status : status i nformation is not available Intention in Next Year: intention information is not available SOCIAL HISTORY - Sexual Behavior Sexual Orientation Gender Identity SNOMED-CT Description SNO MED -CT Description Activity Level No of Partners Partner Type UpdatedBy Information is not available HEALTH CONCERNS Problems Concern Status Health Concern problem infor mation not available. Smoking Status Status Years Used Consumed packs p er day Health Concern smoking histo ry information not available. Family History Concern Status Health Concern family histor y information not available. ENCOUNTERS ENCOUNTER INFORMATION Reason for Visit M25.512 Admission January 20, 2024 5:10:[address] [id number] Discharge January 20, 2024 5:10:00 PM [facility] DIS CHARGED TO HOME OR SELF CARE ENCOUNTER DIAGNOSES Notes information is not juan manuel ilable. Code System Diagnosis Onset Date Diagnosis information is not available. 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 Role on Team Status Start Date End Date Update d By BACILIO Casas MD PHY PCP normal January 09, 2024 3:12:28 PM [facility] January 20, 2024 4:00:00 AM [facility] [id number] on January 09, 2024 3:12:28 PM [facility] ANDREW PLUMMER PA-C Referring normal January 09, 2024 3:12:27 PM [facility] January 20, 2024 4:00:00 AM [facility] [id number] on January 09, 2024 3:12:28 PM [facility] ANDREW PLUMMER PA-C Attending normal January 09, 2024 3:12:27 PM [facility] January 20, 2024 4:00:00 AM [facility] [id number] on January 09, 2024 3:12:28 PM [facility] ANDREW PLUMMER PA-C Admitting normal January 09, 2024 3:12:27 PM [facility] January 20, 2024 4:00:00 AM [facility] [id number] on January 09, 2024 3:12:28 PM [facility]
--- OUTSIDE RECORDS SUMMARY | 2024-03-02 12:33 | XMS_ITS | Continuity of Care Document ---
Author Name Unknown Address [address] [place] [phone] Organization [facility] Phone Care Team Providers Care Divorce Mediator Name Role Phone CORY MORA Primary Attending [phone] CORY MORA Unavailable CORY MORA Admitting CORY MORA Primary Care ALLERGIES AND ADVERSE REACTIONS ALLERGIES AND ADVERSE REACTIONS Code System Allergy Substance Adverse Reaction Date Reaction (Severity) Comment Status Reported By Updated By 7454 RXNorm MACRODANTIN Rash Adverse reaction to substance mouth swells active [id number] on January 20, 2024 8:42:51 PM [facility] 7052 RXNorm MORPHINE Adverse reaction to substance pain active [id number] on January 20, 2024 8:42:51 PM [facility] FAMILY HISTORY RELATION: Father Status: Cause of [...] Onset Information not available RESULTS Patient: MICHELE Earl Date of : [birth year] 0 LABORATORY RESULTS ORDER 100: CBC AUTO W DIFF ( LOINC: 44248-2) ORDER DATE: February 08, 2024 11:48:00 AM UTC Specimen Source: Whole Blood Specimen Type: Whole blood s ample PERFORMING LAB: [address] [id number] Result Comment: Final Result Date: February 08, 2024 1:02:00 PM UTC (TECH: LT) LOINC TEST FLAG RESULT REFERENCE RANGE UPDA JACEK BY 6690-2 Leukocytes [#/volume] in Blood by Automated count L 3.8 10^3/uL 4.5 10^3/uL - 11.5 10^3/uL February 08, 2024 1:02:00 PM UTC (TECH: LT) 789-8 Erythrocytes [#/volume] in Blood by Automated count L 2.19 10^6/uL 4.25 10^6/uL - 5.57 10^6/uL February 08, 2024 1:02:00 PM UTC (TECH: LT) 718-7 Hemoglobin [Mass/volume] in Blood LL 8.0 g/dL 12.0 g/dL - 15.7 g/dL February 08, 2024 1:02:00 PM UTC (TECH: LT) 00923-8 Hematocrit [Volume Fraction] of Blood LL 23.8 % 36.0 % - 47.0 % February 07 1:02:00 PM UTC (TECH: LT) 787-2 Erythrocyte mean corpuscular volume [Entitic volume] by Automated count H 108.7 fl 80 fl - 95 fl February 08, 2024 1:02:00 PM UTC (TECH: LT) 39977-2 Erythrocyte mean corpuscular hemoglobin [Entitic mass] in Blood from [place]etus by Automated count H 36.5 pg 27.0 pg - 34.0 pg February 08, 2024 1:02:00 PM UTC (TECH: LT) 67974-1 Erythrocyte mean corpuscular hemoglobin concentration [Mass/volume] in Blood from Fetus by Automated count N 33.6 g/dL 32.0 g/dL - 36.0 g/dL February 08, 2024 1:02:00 PM UTC (TECH: LT) 75296-8 Platelets [#/volume] in Blood L 121 10^3/uL 150 10^3/uL - 450 10^3/uL February 08, 2024 1:02:00 PM UTC (TECH: LT) 67940-8 Erythrocyte distribution width [Ratio] H 16.3 % 12.3 % - 15.1 % February 08, 2024 1:02:00 PM UTC (TECH: LT) 15033-5 Platelet mean volume [Entitic volume] in Blood by Automated count H 11.5 fl 7.4 fl - 10.4 fl February 08, 2024 1:02:00 PM UTC (TECH: LT) 65578-5 Granulocytes/100 leukocytes in Blood by Automated count N 62.5 % 40 % - 75 % February 07 1:02:00 PM UTC (TECH: LT) 736-9 Lymphocytes/100 leukocytes in Blood by Automated count N 22.1 % 15 % - 57 % February 07 1:02:00 PM UTC (TECH: LT) 5905-5 Monocytes/100 leukocytes in Blood by Automated count H 13.0 % 4.0 % - 12.0 % February 07 1:02:00 PM UTC (TECH: LT) 713-8 Eosinophils/100 leukocytes in Blood by Automated count N 0.0 % 0.0 % - 4.0 % February 07 1:02:00 PM UTC (TECH: LT) 706-2 Basophils/100 leukocytes in Blood by Automated count N 0.5 % 0.0 % - 1.0 % February 07 1:02:00 PM UTC (TECH: LT) 35631-0 Immature granulocytes [#/volume] in Blood H 1.9 % 0.0 % - 0.8 % February 07 1:02:00 PM UTC (TECH: LT) 61810-5 Granulocytes [#/volume] in Blood by Automated count N 2.35 10^3/uL February 07 1:02:00 PM UTC (TECH: LT) 731-0 Lymphocytes [#/volume] in Blood by Automated count N 0.83 10^3/uL February 07 1:02:00 PM UTC (TECH: LT) 742-7 Monocytes [#/volume] in Blood by Automated count N 0.49 10^3/uL February 08, 2024 1:02:00 PM UTC (TECH: LT) 711-2 Eosinophils [#/volume] in Blood by Automated count N 0.00 10^3/uL February 07 1:02:00 PM UTC (TECH: LT) 704-7 Basophils [#/volume] in Blood by Automated count N 0.02 10^3/uL February 08, 2024 1:02:00 PM UTC (TECH: LT) 79730-1 Immature granulocytes [#/volume] in Blood N 0.07 10^3/uL February 07 1:02:00 PM UTC (TECH: LT) 39047-2 Manual differential performed [Presence] in Blood N NO February 08, 2024 1:02:00 PM UT (TECH: LT) ORDER 200: HEMOGLOBIN A1C (L OINC: 4548-4) ORDER DATE: February 08, 2024 11:48:00 AM UTC Specimen Source: Whole Blood Specimen Type: Whole blood s ample PERFORMING LAB: [address] [id number] Result Comment: Final Result Date: February 08, 2024 12:16:00 PM UT (TECH: LT) LOINC TEST FLAG RESULT REFERENCE RANGE UPDA JACEK BY 4548-4 Hemoglobin A1c/Hemoglobin.tota l in Blood N 5.4 % 4.5 % - 6.2 % February 08, 2024 12:16:00 PM UT (TECH: LT) 59823-6 Glucose mean value [Mass/volume] in Blood Estimated from glycated hemoglobin N 108 mg/dl 82 mg/dl - 131 mg/dl February 08, 2024 12:16:00 PM UTC (TECH: LT) ORDER 400: COMP METABOLIC PA JEROME (LOINC: 60414-8) ORDER DATE: February 08, 2024 11:48:00 AM UTC Specimen Source: Serum/Plasm a Specimen Type: Acellular blo od (serum or plasma) specimen PERFORMING LAB: [address] [id number] Result Comment: Final Result Date: February 08, 2024 12:44:00 PM UT (TECH: LT) LOINC TEST FLAG RESULT REFERENCE RANGE UPDA JACEK BY 2951-2 Sodium [Moles/volume ] in Serum or Plasma N 141 mmol/L 136 mmol/L - 145 mmol/L February 08, 2024 12:44:00 PM UTC (TECH: LT) 2823-3 Potassium [Moles/volume] in Serum or Plasma L 3.2 mmol/L 3.5 mmol/L - 5.1 mmol/L February 08, 2024 12:44:00 PM UTC (TECH: LT) 2075-0 Chloride [Moles/volu me] in Serum or Plasma H 109 mmol/L 98 mmol/L - 107 mmol/L February 08, 2024 12:44:00 PM UT (TECH: LT) 8-9 Carbon dioxide, tota l [Moles/volume] in Serum or Plasma N 22 mmol/L 21 mmol/L - 32 mmol/L February 08, 2024 12:44:00 PM [place] (TECH: LT) 89259-5 Anion gap 3 in Serum or Plasma N 10.0 February 08, 2024 12:44:00 PM UT (TECH: LT) 2345-7 Glucose [Mass/volume ] in Serum or Plasma H 124 mg/dL 70 mg/dL - 110 mg/dL February 08, 2024 12:44:00 PM UT (TECH: LT) 3094-0 Urea nitrogen [Mass/volume] in Serum or Plasma N 13 mg/dL 7 mg/dL - 18 mg/dL February 08, 2024 12:44:00 PM UT (TECH: LT) 2160-0 Creatinine [Mass/volume] in Serum or Plasma N 0.6 mg/dL 0.6 mg/dL - 1.0 mg/dL February 08, 2024 12:44:00 PM UTC (TECH: LT) 3097-3 Urea nitrogen/Creatinine [Mass Ratio] in Serum or Plasma H 21.7 Ratio 9 Ratio - 21 Ratio February 08, 2024 12:44:00 PM UT (TECH: LT) 51869-9 Glomerular filtratio n rate/1.73 sq M.predicted by Creatinine-based formula (MDRD) N 101 mL/min >60 February 08, 2024 12:44:00 PM UT (TECH: LT) 2885-2 Protein [Mass/volume ] in Serum or Plasma L 5.2 g/dL 6.4 g/dL - 8.2 g/dL February 08, 2024 12:44:00 PM [facility] (TECH: LT) 1751-7 Albumin [Mass/volume ] in Serum or Plasma L 2.5 g/dL 3.4 g/dL - 5.0 g/dL February 08, 2024 12:44:00 PM [facility] (TECH: LT) 57626-9 Calcium [Mass/volume ] in Serum or Plasma N 9.0 mg/dL 8.5 mg/dL - 10.1 mg/dL February 08, 2024 12:44:00 PM [facility] (TECH: LT) 06350-0 Calcium [Mass/volume ] corrected for total protein in Serum or Plasma H 10.2 mg/dL 8.5 mg/dL - 10.1 mg/dL February 08, 2024 12:44:00 PM [facility] (TECH: LT) 1975-2 Bilirubin.total [Mass/volume] in Serum or Plasma N 0.7 mg/dL 0.4 mg/dL - 1.5 mg/dL February 08, 2024 12:44:00 PM [facility] (TECH: LT) 1920-8 Aspartate aminotransferase [Enzymatic activity/volume] in Serum or Plasma N 18 U/L 15 U/L - 37 U/L February 08, 2024 12:44:00 PM [facility] (TECH: LT) 1742-6 Alanine aminotransferase [Enzymatic activity/volume] in Serum or Plasma N 25 U/L 12 U/L - 78 U/L February 08, 2024 12:44:00 PM [facility] (TECH: LT) 6768-6 Alkaline phosphatase [Enzymatic activity/volume] in Serum or Plasma N 140 U/L 53 U/L - 141 U/L February 08, 2024 12:44:00 PM [facility] (TECH: LT) ORDER 500: LIPID PANEL (LOIN C: 30656-1) ORDER DATE: February 08, 2024 11:48:00 AM [facility] Specimen Source: Serum/Plasm a Specimen Type: Acellular blo od (serum or plasma) specimen PERFORMING LAB: [address] [id number] Result Comment: Final Result Date: February 08, 2024 12:44:00 PM [facility] (TECH: LT) LOINC TEST FLAG RESULT REFERENCE RANGE UPDA JACEK BY 2571-8 Triglyceride [Mass/volume] in Serum or Plasma N 130 mg/dL 20 mg/dL - 200 mg/dL February 08, 2024 12:44:00 PM [facility] (TECH: LT) 2092-3 Cholesterol [Mass/volume] in Serum or Plasma N 122 mg/dL 0 mg/dL - 200 mg/dL February 08, 2024 12:44:00 PM [facility] (TECH: LT) 2084-9 Cholesterol in HDL [Mass/volume] in Serum or Plasma L 43 mg/dL 60 mg/dL February 08, 2024 12:44:00 PM [facility] (TECH: LT) 93752-6 Cholesterol in LDL [Mass/volume] in Serum or Plasma by calculation L 53 mg/dL 100 mg/dL February 08, 2024 12:44:00 PM [facility] (TECH: LT) 2094-8 Cholesterol in HDL/Cholesterol.tota l [Mass Ratio] in Serum or Plasma N 3 Ratio February 08, 2024 12:44:00 PM [facility] (TECH: LT) ORDER 600: VITAMIN B12 (LOIN C: 2132-9) ORDER DATE: February 08, 2024 11:48:00 AM [facility] Specimen Source: Serum/Plasm a Specimen Type: Acellular blo od (serum or plasma) specimen PERFORMING LAB: [address] [id number] Result Comment: Final Result Date: February 08, 2024 12:44:00 PM UT (TECH: LT) LOINC TEST FLAG RESULT REFERENCE RANGE UPDA JACEK BY 2131-9 Cobalamin (Vitamin B12) [Mass/volume] in Serum or Plasma N 838 pg/mL 193 pg/mL - 986 pg/mL February 08, 2024 12:44:00 PM [facility] (TECH: LT) ORDER 700: VITAMIN D TOTAL D 2 D3 (LOINC: 71613-5) ORDER DATE: February 08, 2024 12:04:00 PM [facility] Specimen Source: Serum/Plasm a Specimen Type: Acellular blo od (serum or plasma) specimen PERFORMING LAB: [address] [id number] Result Comment: Final Result Date: February 08, 2024 12:44:00 PM [facility] (TECH: LT) LOINC TEST [place] [address]-2 Calcidiol+Calciferol [Mass/volume] in Serum or Plasma N 52.6 ng/mL 30 ng/mL - 100 ng/mL February 07 12:44:00 PM [facility] (TECH: LT) LABORATORY NARRATIVE RESULTS Information is not available RADIOLOGY RESULTS Information is not available PATHOLOGY NARRATIVE RESULTS Information is not available [...] Description Effective Dates Offered Cessation Comment UpdatedBy [id number] Historical Tobacco smoking status Never Smoked Not Applicable [id number] on April 07, 2016 4:52:02 AM [facility] [id number] Historical Tobacco smoking status Former Smoker Yes [id number] on June 09, 2015 6:14:54 PM [facility] SOCIAL HISTORY - Gender Sex: Female SOCIAL [...] available. ENCOUNTERS ENCOUNTER INFORMATION Reason for Visit E11.9 Admission February 08, 2024 11:47:00 AM [facility] [address] [id number] Discharge February 08, 2024 12:47:00 PM [facility] D ISCHARGED TO HOME OR SELF CARE ENCOUNTER DIAGNOSES Notes information is not juan manuel ilable. Code System Diagnosis Onset Date Diagnosis information is not available. 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, SUBSEQUENT ENCOUNTER [id number] on February 09, 2024 3:29:01 PM [facility] E11.9 ICD10 TYPE 2 DIABETES MELLITUS WITHOUT COMPLICATIONS [id number] on February 09, 2024 3:29:01 PM [facility] E78.5 ICD10 HYPERLIPIDEMIA, UNSPECIFIED [id number] on February 09, 2024 3:29:01 PM [facility] CARE TEAM Care Divorce Mediator Role CORY MORA Primary Attending CORY MORA Referring CORY MORA Admitting CORY MORA Primary Care CARE TEAM CARE mixing technician Role on Team Status Start Date End Date Update d By ABBY RAY ENROLLMENT COUNSELOR PCP normal February 08, 2024 4:00:00 AM [facility] February 08, 2024 12:47:00 PM [facility] [id number] on February 08, 2024 7:47:44 PM [facility] ABBY RAY APRN Referring normal February 08, 2024 4:00:00 AM [facility] February 08, 2024 12:47:00 PM [facility] [id number] on February 08, 2024 7:47:44 PM [facility] ABBY RAY APRN Attending normal February 08, 2024 4:00:00 AM [facility] February 08, 2024 12:47:00 PM [facility] [id number] on February 08, 2024 7:47:44 PM [facility] ABBY RAY APRN Admitting normal February 08, 2024 4:00:00 AM [facility] February 08, 2024 12:47:00 PM [facility] [id number] on February 08, 2024 7:47:44 PM [facility] [address]ID L[address] MD PCP normal February 08, 2024 11:48:06 AM [facility] February 08, 2024 4:00:00 AM [facility] [id number] on February 08, 2024 7:47:44 PM [facility]
--- OUTSIDE RECORDS SUMMARY | 2024-03-02 12:33 | XMS_ITS | Continuity of Care Document ---
Author Name Unknown Address [address] [place] [phone] Organization [facility] Phone Care Team Providers Care Timber Skidder Name Role Phone NILA ABREU Primary Attending NILA ABREU Admitting KEVIN RIBERA Primary Care NILA ABREU Unavailable ALLERGIES AND ADVERSE REACTIONS ALLERGIES AND ADVERSE REACTIONS Code System Allergy Substance Adverse Reaction Date Reaction (Severity) Comment Status Reported By Updated By 7454 RXNorm MACRODANTIN Rash Adverse reaction to substance mouth swells active [id number] on January 20, 2024 8:42:51 PM [facility] 7052 RXNorm MORPHINE Adverse reaction to substance pain active [id number] on January 20, 2024 8:42:51 PM [facility] FAMILY HISTORY RELATION: Father Status: Cause [...] RESULTS Patient: MICHELE Earl Date of : [birth year] 0 LABORATORY RESULTS ORDER 500: PT PROTHROMBIN TI ME W INR (LOINC: 99000-8) ORDER DATE: January 20, 2024 9:33:00 PM UTC Specimen Source: Plasma Specimen Type: Plasma specim en PERFORMING LAB: [address] [id number] Result Comment: Final Result Date: January 20, 2024 9:52:00 PM UTC (TECH: [employer]) LOINC TEST [place] [address]-8 INR in Platelet poor plasma or blood by Coagulation assay H 17.8 seconds 9.1 seconds - 12.0 seconds January 20, 2024 9:52:00 PM UTC (TECH: [employer]) 6301-6 INR in Platelet poor plasma by Coagulation assay H 1.66 0.9 - 1.1 January 20, 2024 9:52:00 PM UTC (TECH: KSM) ORDER 600: CBC AUTO W DIFF ( LOINC: 60335-7) ORDER DATE: January 20, 2024 9:33:00 PM UTC Specimen Source: Whole Blood Specimen Type: Whole blood s ample PERFORMING LAB: [address] [id number] Result Comment: Final Result Date: January 20, 2024 9:48:00 PM UTC (TECH: [employer]) LOINC TEST FLAG RESULT REFERENCE RANGE UPDA JACEK BY 6690-2 Leukocytes [#/volume] in Blood by Automated count N 8.6 10^3/uL 4.5 10^3/uL - 11.5 10^3/uL January 20, 2024 9:48:00 PM UTC (TECH: KSM) 789-8 Erythrocytes [#/volume] in Blood by Automated count L 3.23 10^6/uL 4.25 10^6/uL - 5.57 10^6/uL January 20, 2024 9:48:00 PM UTC (TECH: KSM) 718-7 Hemoglobin [Mass/volume] in Blood L 11.7 g/dL 12.0 g/dL - 15.7 g/dL January 20, 2024 9:48:00 PM UTC (TECH: KSM) 11877-7 Hematocrit [Volume Fraction] of Blood L 32.7 % 36.0 % - 47.0 % January 20, 2024 9:48:00 PM UTC (TECH: [employer]) 787-2 Erythrocyte mean corpuscular volume [Entitic volume] by Automated count H 101.2 fl 80 fl - 95 fl January 20, 2024 9:48:00 PM UTC (TECH: [employer]) 69307-0 Erythrocyte mean corpuscular hemoglobin [Entitic mass] in Blood from Fetus by Automated count H 36.2 pg 27.0 pg - 34.0 pg January 20, 2024 9:48:00 PM UTC (TECH: [employer]) 98836-3 Erythrocyte mean corpuscular hemoglobin concentration [Mass/volume] in Blood from Fetus by Automated count N 35.8 g/dL 32.0 g/dL - 36.0 g/dL January 20, 2024 9:48:00 PM UTC (TECH: [employer]) 62690-3 Platelets [#/volume] in Blood L 108 10^3/uL 150 10^3/uL - 450 10^3/uL January 20, 2024 9:48:00 PM UTC (TECH: [employer]) 71889-8 Erythrocyte distribution width [Ratio] N 13.9 % 12.3 % - 15.1 % January 20, 2024 9:48:00 PM UTC (TECH: [employer]) 87575-7 Platelet mean volume [Entitic volume] in Blood by Automated count H 11.6 fl 7.4 fl - 10.4 fl January 20, 2024 9:48:00 PM UTC (TECH: [employer]) 83680-1 Granulocytes/100 leukocytes in Blood by Automated count H 82.8 % 40 % - 75 % January 20, 2024 9:48:00 PM UTC (TECH: [employer]) 736-9 Lymphocytes/100 leukocytes in Blood by Automated count L 7.1 % 15 % - 57 % January 20, 2024 9:48:00 PM UTC (TECH: [employer]) 5905-5 Monocytes/100 leukocytes in Blood by Automated count N 6.1 % 4.0 % - 12.0 % January 20, 2024 9:48:00 PM UTC (TECH: [employer]) 713-8 Eosinophils/100 leukocytes in Blood by Automated count N 0.0 % 0.0 % - 4.0 % January 20, 2024 9:48:00 PM UTC (TECH: [employer]) 706-2 Basophils/100 leukocytes in Blood by Automated count N 0.2 % 0.0 % - 1.0 % January 20, 2024 9:48:00 PM UTC (TECH: [employer]) 15991-6 Immature granulocytes [#/volume] in Blood H 3.8 % 0.0 % - 0.8 % January 19 9:48:00 PM UTC (TECH: [employer]) 44156-3 Granulocytes [#/volume] in Blood by Automated count N 7.15 10^3/uL January 20, 2024 9:48:00 PM UTC (TECH: KSM) 731-0 Lymphocytes [#/volume] in Blood by Automated count N 0.61 10^3/uL January 20, 2024 9:48:00 PM UTC (TECH: [employer]SM) 742-7 Monocytes [#/volume] in Blood by Automated count N 0.53 10^3/uL January 20, 2024 9:48:00 PM UTC (TECH: [employer]) 711-2 Eosinophils [#/volume] in Blood by Automated count N 0.00 10^3/uL January 20, 2024 9:48:00 PM UTC (TECH: [employer]) 704-7 Basophils [#/volume] in Blood by Automated count N 0.02 10^3/uL January 20, 2024 9:48:00 PM UTC (TECH: [employer]) 92121-9 Immature granulocytes [#/volume] in Blood N 0.33 10^3/uL January 19 9:48:00 PM UTC (TECH: [employer]) 43175-0 Manual differential performed [Presence] in Blood N NO January 20, 2024 9:48:00 PM UTC (TECH: [employer]) ORDER 700: COMP METABOLIC PA JEROME (LOINC: 18774-7) ORDER DATE: January 20, 2024 9:33:00 PM UTC Specimen Source: Serum/Plasm a Specimen Type: Acellular blo od (serum or plasma) specimen PERFORMING LAB: [address] [id number] Result Comment: Final Result Date: January 20, 2024 9:49:00 PM UTC (TECH: [employer]) LOINC TEST FLAG RESULT REFERENCE RANGE UPDA JACEK BY 2951-2 Sodium [Moles/volume ] in Serum or Plasma L 133 mmol/L 136 mmol/L - 145 mmol/L January 20, 2024 9:49:00 PM [place] (TECH: [employer]) 2823-3 Potassium [Moles/vol ume] in Serum or Plasma N 3.9 mmol/L 3.5 mmol/L - 5.1 mmol/L January 20, 2024 9:49:00 PM UT (TECH: [employer]) 5-0 Chloride [Moles/volu me] in Serum or Plasma N 98 mmol/L 98 mmol/L - 107 mmol/L January 20, 2024 9:49:00 PM UT (TECH: [employer]) 2027-9 Carbon dioxide, tota l [Moles/volume] in Serum or Plasma N 22 mmol/L 21 mmol/L - 32 mmol/L January 20, 2024 9:49:00 PM [facility] (TECH: [employer]) 91947-7 Anion gap 3 in Serum or Plasma N 13.0 January 20, 2024 9:49:00 PM [facility] (TECH: [employer]) 2345-7 Glucose [Mass/volume ] in Serum or Plasma H 145 mg/dL 70 mg/dL - 110 mg/dL January 20, 2024 9:49:00 PM [place] (TECH: [employer]) 3094-0 Urea nitrogen [Mass/volume] in Serum or Plasma H 35 mg/dL 7 mg/dL - 18 mg/dL January 20, 2024 9:49:00 PM [facility] (TECH: [employer]) 2160-0 Creatinine [Mass/vol ume] in Serum or Plasma H 1.3 mg/dL 0.6 mg/dL - 1.0 mg/dL January 20, 2024 9:49:00 PM [place] (TECH: [employer]) 3097-3 Urea nitrogen/Creati nine [Mass Ratio] in Serum or Plasma H 26.9 Ratio 9 Ratio - 21 Ratio January 20, 2024 9:49:00 PM [place] (TECH: [employer]) 93756-3 Glomerular filtratio n rate/1.73 sq M.predicted by Creatinine-based formula (MDRD) L 41 mL/min >60 January 20, 2024 9:49:00 PM [place] (TECH: [employer]) 2885-2 Protein [Mass/volume ] in Serum or Plasma N 7.1 g/dL 6.4 g/dL - 8.2 g/dL January 19 9:49:00 PM [place] (TECH: [employer]) 1751-7 Albumin [Mass/volume ] in Serum or Plasma N 3.5 g/dL 3.4 g/dL - 5.0 g/dL January 19 9:49:00 PM [place] (TECH: [employer]) 55971-4 Calcium [Mass/volume ] in Serum or Plasma N 8.7 mg/dL 8.5 mg/dL - 10.1 mg/dL January 20, 2024 9:49:00 PM [place] (TECH: [employer]) 31528-1 Calcium [Mass/volume ] corrected for total protein in Serum or Plasma N 9.1 mg/dL 8.5 mg/dL - 1 0.1 mg/dL January 20, 2024 9:49:00 PM [facility] (TECH: [employer]) 1975-2 Bilirubin.total [Mass/volume] in Serum or Plasma H 1.7 mg/dL 0.4 mg/dL - 1.5 mg/dL January 20, 2024 9:49:00 PM [facility] (TECH: [employer]) 1920-8 Aspartate aminotrans ferase [Enzymatic activity/volume] in Serum or Plasma N 30 U/L 15 U/L - 37 U/L January 20, 2024 9:49:00 PM [facility] (TECH: [employer]) 1742-6 Alanine aminotransfe rase [Enzymatic activity/volume] in Serum or Plasma N 38 U/L 12 U/L - 78 U/L January 20, 2024 9:49:00 PM [facility] (TECH: [employer]) 6768-6 Alkaline phosphatase [Enzymatic activity/volume] in Serum or Plasma N 91 U/L 53 U/L - 141 U/L January 20, 2024 9:49:00 PM [facility] (TECH: [employer]) LABORATORY NARRATIVE RESULTS Information is not available RADIOLOGY RESULTS ORDER 100: CT BRAIN HEAD WO (LOINC: 54753-1) ORDER DATE: January 20, 2024 8:37:00 PM [facility] PERFORMING LAB: [address] [place] [id number] Final Result Date: January 20, 2024 9:06:[address] [place] [address] Name: SKYLER BAUTISTA Exam Date: 01/20/2024 : 1940 Age 83 years Gender: F Physician: Facility: [facility] Facility HSV: Outpatient Exam: CT BRAIN HEAD WO FINAL REPORT CLINICAL HISTORY: R/O STROKE. Head Trauma with pain. patient found in her yard today COMPARISON: 08/04/2020 FINDINGS: Axial images of the head were obtained without contrast. Coronal reformatted images were also obtained. This study was performed with techniques to keep radiation doses as low as reasonably achievable (ALARA). Individualized dose reduction techniques using automated exposure control or adjustment of mA and/or kV according to the patient's size were employed. There is generalized age-appropriate atrophy. Periventricular low-attenuation areas are seen consistent with mild chronic ischemic changes. There is a left-sided subdural hematoma measuring up to 3 mm in thickness. There is presumed subarachnoid hemorrhage in the region of the sylvian fissure. There is no evidence of acute infarct. There is no evidence of shift of the midline structures. The left orbital floor is fractured. There are fractures of the left anterior and posterior maxillary sinus andino with hemorrhage in the left maxillary sinus. IMPRESSION: Left-sided subdural hematoma measuring up to 3 mm in thickness. Presumed subarachnoid hemorrhage in the region of the sylvian fissure. Left orbital floor fracture. Fractures of the left anterior and posterior maxillary sinus andino with hemorrhage in the left maxillary sinus. Atrophy and mild periventricular chronic ischemic changes. The emergency department was notified of these findings at 5:06 PM on 01/20/2024. Reviewed, Interpreted and Dictated by Ramón Veliz III, MD Transcribed by Shauna Michael Authenticated and EASTERN Dictated By: Ramón Veliz III Transcribed By: Transcribed On: 01/20/2024 5:06 PM Electronically signed by: Ramón Veliz III 01/20/2024 Thank you for referring SKYLER BAUTISTA to [facility]. Legally authenticated by CHANTAL Thornton III, MD 2024-01-20 17:06:40 PATHOLOGY NARRATIVE RESULTS Information is not available MICROBIOLOGY RESULTS No Micro Labs/Results Exist for Patient BLOOD ADMIN RESULTS Information is not available TREATMENT PLAN DISCHARGE MEDICATIONS Status RXNORM Medication Dose Route Frequency Dates Comments U pdated By Patient discharge medication information is not available. PATIENT OPEN ORDERS Code System Description Frequency Occurrences Priority [place] [address] [facility] Cerv[facility] WO contrast ONE TIME 0 Stat January 20, 2024 8:37:00 PM [place] MATZEN NILA DO [id number] on January 20, 2024 9:55:00 PM [facility] 56880-0 LOINC Upper extremity - left CT WO contrast ONE TIME 0 Stat January 20, 2024 8:37:00 PM [place] MATZEN NILA DO [id number] on January 20, 2024 9:55:00 PM [facility] 13953-3 [facility] Facial bones and Maxilla CT WO contrast ONE TIME 0 Stat January 20, 2024 8:55:00 PM [place] MATJOSEMANUEL DOTSON DO [id number] on January 20, 2024 9:55:00 PM [facility] SCHEDULED PROCEDURES Code System Description Status Scheduled Date Upd ated By Patient scheduled procedure information is not available. MEDICATIONS HOME MEDICATIONS Status RXNORM [facility] Medication Dose Route Frequency Dates Comments Reported By Updated By Active 926001 726292 49278 warfarin 3 mg tablet 0.0 BY MOUTH Last Dose: [id number] on January 20, 2024 8:42:53 PM [facility] Active 838549 412763 09913 amlodipine 10 mg tablet 1.0 TAB BY MOUTH DAILY Last Dose: [id number] on January 20, 2024 8:49:29 PM [facility] Active 484118 937361 92759 carvedilol 25 mg tablet 1.0 TAB BY MOUTH DAILY Last Dose: [id number] on January 20, 2024 8:49:29 PM [facility] Active 965442 784911 69291 hydralazine 10 mg tablet 1.0 TAB BY MOUTH DAILY Last Dose: [id number] on January 20, 2024 8:49:29 PM [facility] Active 915255 594105 21880 losartan 100 mg tablet 1.0 TAB BY MOUTH DAILY Last Dose: [id number] on January 20, 2024 8:49:29 PM [facility] Active 968294 193475 15510 metformin 500 mg tablet 1.0 TAB BY MOUTH BID Last Dose: [id number] on January 20, 2024 8:49:30 PM [place] Active 611159 776920 11358 hydrocodone- acetaminophe n 5-325 mg tablet 1.0 TAB BY MOUTH DAILY Last Dose: [id number] on January 20, 2024 8:49:30 PM UT Active 516818 301135 14554 valsartan 160 mg tablet 1.0 TAB BY MOUTH DAILY Last Dose: [id number] on January 20, 2024 8:49:30 PM UT Active 768845 223708 29033 Xanax 0.5 mg tablet 1.0 TAB BY MOUTH DAILY Last Dose: [id number] on January 20, 2024 8:49:30 PM [place] DISCHARGE MEDICATIONS Status RXNORM ND Medication Dose Route Frequency Dates Comments Physician Updated By No Discharge Medication Info rmation Available INPATIENT MEDICATIONS Status RXNORM ND Medication Dose Route Frequency Rat e Quantity Dates Comments Physician Updated By Ishaan [facility] [phone] phytonadion e (VITAMIN K) 10 MG/ML SOLN 10.0 MG ONE TIME ONLY Start: January 20, 2024 9:21:0 0 PM UT End: January 20, 2024 9:21:0 0 PM UT BRADY DOTSON DO INTERF ED on January 20, 2024 9:20:00 PM UT SOCIAL HISTORY SOCIAL HISTORY SNOMED-CT Social History Element Description Effective Dates Offered Cessation Comment UpdatedBy [id number] Historical Tobacco smoking status Never Smoked Not Applicable [id number] on April 07, 2016 4:52:02 AM UT [id number] Historical Tobacco smoking status Former Smoker Yes [id number] on June 09, 2015 6:14:54 PM [place] SOCIAL HISTORY - Gender Sex: Female SOCIAL HISTORY - Status : status i nformation is not available Intention in Next Year: intention information is not available SOCIAL HISTORY - Sexual Behavior Sexual Orientation Gender Identity SNOMED-CT Description SNO MED -CT Description Activity Level No of Partners Partner Type UpdatedBy Information is not available VITAL SIGNS PATIENT VITAL SIGNS This section displays the mo st recent value for each vital sign as of January 20, 2024 10:39:05 PM [facility] Loinc Code Vital Sign Activity Date Result Updated By 8310-5 Body temperature January 20, 2024 8:34:00 PM UT 98.0 [degF] [id number] on January 20, 2024 8:38:22 PM [facility] 8462-4 Diastolic blood pressure January 20, 2024 8:34:00 PM UTC 82.0 mm[Hg] [id number] on January 20, 2024 8:38:22 PM UT 8867-4 Heart rate January 20, 2024 8:38:00 PM UTC 72 /min [id number] on January 20, 2024 9:30:59 [place] [address]-0 Oxygen saturation in Arterial blood by Pulse oximetry January 20, 2024 8:38:00 PM UTC 98.0 % [id number] on January 20, 2024 9:30:59 PM [place] 9279-1 Respiratory rate January 20, 2024 8:34:00 PM UTC 18 /min [id number] on January 20, 2024 8:38:22 PM UT 8480-6 Systolic blood pressure January 20, 2024 8:34:00 PM UTC 185.0 mm[Hg] [id number] on January 20, 2024 8:38:22 PM UT PEDIATRIC GROWTH CHART - VITAL SIGNS This section displays Head C ircumference Percentile, Weight for Length Percentile and BMI Percentile Loinc Code Pediatric Measure Age (Months) Result Updat ed By No Pediatric Growth Chart Pe rcentile Information Available. HEALTH CONCERNS Problems Concern Status Health Concern problem infor mation not available. Smoking Status Status Years Used Consumed packs p er day Health Concern smoking histo ry information not available. Family History Concern Status Health Concern family histor y information not available. ENCOUNTERS ENCOUNTER INFORMATION Reason for Visit FALL INJURY Admission January 20, 2024 8:25:[address] [address] Discharge January 20, 2024 9:39:00 PM [facility] ENCOUNTER DIAGNOSES Notes information is not juan manuel ilable. Code System Diagnosis Onset Date Diagnosis information is not available. ABSTRACT DIAGNOSES Code System Diagnosis Updated By Abstract Diagnosis informati on is not available. CARE TEAM Care Timber Skidder Role NILA ABREU Primary Attending NILA ABREU Admitting KEVIN RIBERA Primary Care NILA ABREU Referring CARE TEAM CARE holiday detector operator Role on Team Status Start Date End Date Update d By BRADY DOTSON DO Referring normal January 19 8:59:32 PM UT January 20, 2024 9:39:00 PM UT [id number] on January 20, 2024 8:59:32 PM UT BRADY DOTSON DO Attending normal January 19 8:59:32 PM UTC January 20, 2024 9:39:00 PM UT [id number] on January 20, 2024 8:59:32 PM UTC BRADY DOTSON DO Admitting normal January 19 8:59:32 PM UTC January 20, 2024 9:39:00 PM UT [id number] on January 20, 2024 8:59:32 PM [facility] BACILIO Casas MD [facility] normal January 20, 2024 8:26:38 PM UTC January 20, 2024 9:39:00 PM UTC [id number] on January 20, 2024 8:59:32 PM UT
--- OUTSIDE RECORDS SUMMARY | 2024-03-02 12:33 | XMS_ITS | Continuity of Care Document ---
Author Name Unknown Address [address] [place] [phone] Organization [facility] Phone Care Team Providers Care Relay Associate Name Role Phone KEVIN RIBERA Primary Attending [phone] KEVIN RIBERA Admitting KEVIN RIBERA Primary Care KEVIN RIBERA Unavailable ALLERGIES AND ADVERSE REACTIONS ALLERGIES AND ADVERSE REACTIONS Code System Allergy Substance Adverse Reaction Date Reaction (Severity) Comment Status Reported By Updated By 7454 RXNorm MACRODANTIN Rash Adverse reaction to substance mouth swells active [id number] on September 16, 2023 9:50:29 PM [facility] 7052 RXNorm MORPHINE Adverse reaction to substance pain active [id number] on September 16, 2023 9:50:29 PM [facility] FAMILY HISTORY RELATION: Father Status: [...] : December 23 0 LABORATORY RESULTS ORDER 200: PT PROTHROMBIN TI ME W INR (LOINC: 08162-5) ORDER DATE: November 09, 2023 5:48:00 PM [facility] Specimen Source: Plasma PERFORMING LAB: [address] [id number] Result Comment: Final Result Date: November 09, 2023 6:05:00 PM UT (TECH: LT) LOINC TEST [place] [address]-2 INR in Platelet poor plasma or blood by Coagulation assay H 27.9 seconds 9.1 seconds - 12.0 seconds November 09, 2023 6:05:00 PM UT (TECH: LT) 6301-6 INR in Platelet poor plasma by Coagulation assay H 2.66 0.9 - 1.1 November 09, 2023 6:05:00 PM [facility] (TECH: LT) LABORATORY NARRATIVE RESULTS Information is not available RADIOLOGY RESULTS Information is not available PATHOLOGY NARRATIVE RESULTS Information is not available MICROBIOLOGY RESULTS No Micro Labs/Results Exist for Patient BLOOD ADMIN RESULTS Information is not available MEDICATIONS HOME MEDICATIONS Status RXNORM Medication Dose Route Frequency Dates Comments R eported By Updated By Drug Treatment Unknown DISCHARGE MEDICATIONS Status RXNORM Medication Dose Route Frequency Dates Comments Physic kim Updated By No Discharge Medication Info rmation Available INPATIENT MEDICATIONS Status RXNORM Medication Dose Route Frequency Rate Quantity Dates Comments Physician Updated By No Inpatient Medication Info rmation Available SOCIAL HISTORY SOCIAL HISTORY SNOMED-CT Social History Element Description Effective Dates Offered Cessation Comment UpdatedBy [id number] Historical Tobacco smoking status Never Smoked Not Applicable [id number] on April 07, 2016 4:52:02 AM [facility] [id number] Historical Tobacco smoking status Former Smoker Yes [id number] on June 09, 2015 6:14:54 PM [facility] SOCIAL HISTORY - Gender Sex: Female SOCIAL HISTORY - Sexual Behavior Sexual Orientation [...] available. ENCOUNTERS ENCOUNTER INFORMATION Reason for Visit LABS Admission November 09, 2023 5:37:[address] [address] Discharge November 09, 2023 5:37:00 PM UT DISCHARGED TO HOME OR SELF CARE ENCOUNTER DIAGNOSES Notes information is not juan manuel ilable. Code System Diagnosis Onset Date Diagnosis information is not available. ABSTRACT DIAGNOSES Code System Diagnosis Updated By Abstract Diagnosis informati on is not available. CARE TEAM Care Relay Associate Role KEVIN RIBERA Primary Attending KEIVN RIBERA Admitting KEVIN RIBERA Primary Care KEVIN RIBERA Referring CARE TEAM CARE screen examiner Role on Team Status Start Date End Date Update d By BACILIO KNOTT PCP normal November 09, 2023 5:00:00 AM UT November 09, 2023 5:37:00 PM [facility] [id number] on November 09, 2023 5:40:30 PM [facility] BACILIO KNOTT Referring normal November 09, 2023 5:00:00 AM UT November 09, 2023 5:37:00 PM [facility] [id number] on November 09, 2023 5:40:30 PM [facility] BACILIO KNOTT Attending normal November 09, 2023 5:00:00 AM [facility] November 09, 2023 5:37:00 PM UT [id number] on November 09, 2023 5:40:30 PM [facility] BACILIO KNOTT Admitting normal November 09, 2023 5:00:00 AM UT November 09, 2023 5:37:00 PM UT [id number] on November 09, 2023 5:40:30 PM [facility]
--- OUTSIDE RECORDS SUMMARY | 2024-03-02 12:33 | XMS_ITS | Continuity of Care Document ---
Author Name Unknown Address [address] [place], [place] [id number] Organization [facility] Phone Care Team Providers Care Radio Repairer Domestic Name Role Phone KEVIN RIBERA Augusto Primary Care ADELAIDE SANTORO Primary Attending ADELAIDE SANTORO Unavailable ADELAIDE SANTORO Admitting ALLERGIES AND ADVERSE REACTIONS ALLERGIES AND ADVERSE REACTIONS Code System Allergy Substance Adverse Reaction Date Reaction (Severity) Comment Status Reported By Updated By 7427 RXNorm MACRODANTIN Rash Adverse reaction to substance mouth swells active [id number] on September 16, 2023 9:50:29 PM [facility] 7052 RXNorm MORPHINE Adverse reaction to substance pain active [id number] on September 16, 2023 9:50:29 PM [facility] FAMILY HISTORY RELATION: Father Status: Cause [...] Diagnosis Age At Onset Information not available TREATMENT PLAN DISCHARGE MEDICATIONS Status RXNORM Medication Dose Route Frequency Dates Comments U pdated By Patient discharge medication information is not available. PATIENT OPEN ORDERS Code System Description Frequency Occurrences Priority [place] [address]-9 LOINC XR Abdomen supine and upright ONE TIME 0 Routine December 14, 2023 2:29:00 PM [facility] YVAN LONGORIA [id number] on December 14, 2023 2:49:00 PM [facility] SCHEDULED PROCEDURES Code System Description Status Scheduled Date Upd ated By Patient scheduled procedure information is not available. MEDICATIONS HOME MEDICATIONS Status RXNORM Medication Dose [...] Description Effective Dates Offered Cessation Comment UpdatedBy [id number] Historical Tobacco smoking status Never Smoked Not Applicable [id number] on April 07, 2016 4:52:02 AM [facility] [id number] Historical Tobacco smoking status Former Smoker Yes [id number] on June 09, 2015 6:14:54 PM [facility] SOCIAL HISTORY - Gender Sex: Female [...] available. ENCOUNTERS ENCOUNTER INFORMATION Reason for Visit X RAY R10.32 Admission December 14, 2023 2:21:[address] [address] Discharge December 14, 2023 2:21:00 PM [facility] DISCHARGED TO HOME OR SELF CARE ENCOUNTER DIAGNOSES Notes information is not juan manuel ilable. Code System Diagnosis Onset Date Diagnosis information is not available. ABSTRACT DIAGNOSES Code System Diagnosis Updated By Abstract Diagnosis informati on is not available. CARE TEAM Care Radio Repairer Domestic Role KEVIN RIBERA Primary Care ADELAIDE SANTORO Primary Attending AEDLAIDE SANTORO Referring ADELAIDE SANTORO Admitting CARE TEAM CARE culinary art teacher Role on Team Status Start Date End Date Update d By YVAN LONGORIA PHY Referring normal December 14, 2023 5:00:00 AM [facility] December 14, 2023 2:21:00 PM [facility] [id number] on December 14, 2023 2:27:06 PM [facility] YVAN KNOTT Attending normal December 14, 2023 5:00:00 AM [facility] December 14, 2023 2:21:00 PM [facility] [id number] on December 14, 2023 2:27:06 PM [facility] YVAN KNOTT Admitting normal December 14, 2023 5:00:00 AM [facility] December 14, 2023 2:21:00 PM [facility] [id number] on December 14, 2023 2:27:06 PM [facility] BACILIO Casas MD, PHY PCP normal December 14, 2023 5:00:00 AM [facility] December 14, 2023 2:21:00 PM [facility] [id number] on December 14, 2023 2:27:06 PM [facility]
--- OUTSIDE RECORDS SUMMARY | 2024-03-02 12:33 | XMS_ITS | Continuity of Care Document ---
Author Name Unknown Address [address] [place], [place] [id number] Organization [facility] Phone Care Team Providers Care House Calls Nurse Name Role Phone DOMINGO NANE Primary Care DOMINGO ANNE Primary Attending DOMINGO ANNE Unavailable DOMINGO ANNE Admitting ALLERGIES AND ADVERSE REACTIONS ALLERGIES AND ADVERSE REACTIONS Code System Allergy Substance Adverse Reaction Date Reaction (Severity) Comment Status Reported By [place] 7475 RXNorm MACRODANTIN Rash Adverse reaction to substance mouth swells active [id number] on January 20, 2024 8:42:51 PM [facility] 7052 RXNorm MORPHINE Adverse reaction to substance pain active [id number] on January 20, 2024 8:42:51 PM [facility] FAMILY HISTORY RELATION: Father Status: Cause of [...] At Onset Information not available RESULTS Patient: BAUTISTA SKYLER Rajat Date of : December 23 LABORATORY RESULTS ORDER 100: IRON/TIBC/ SAT IR ON STUDIES (LOINC: 43306-2) ORDER DATE: February 10, 2024 11:21:00 AM UTC Specimen Source: Serum/Plasm a Specimen Type: Acellular blo od (serum or plasma) specimen PERFORMING LAB: [address] [id number] Result Comment: Final Result Date: February 10, 2024 12:17:00 PM UTC (TECH: HC) LOINC TEST FLAG RESULT REFERENCE RANGE UPDA JACEK BY 2498-4 Iron [Mass/volume] in Serum or Plasma N 68 ug/dL 35 ug/dL - 150 ug/dL February 10, 2024 12:17:00 PM UTC (TECH: HC) 2500-7 Iron binding capacity [Mass/volume] in Serum or Plasma L 180 ug/dL 250 ug/dL - 450 ug/dL February 10, 2024 12:17:00 PM UTC (TECH: HC) 81151-5 Oxygen saturation in Blood N 38 % 15 % - 55 % February 10, 2024 12:17:00 PM UTC (TECH: HC) ORDER 200: FERRITIN (LOINC: 2276-4) ORDER DATE: February 10, 2024 11:21:00 AM UTC Specimen Source: Serum/Plasm a Specimen Type: Acellular blo od (serum or plasma) specimen PERFORMING LAB: [address] [id number] Result Comment: Final Result Date: February 10, 2024 12:17:00 PM UTC (TECH: HC) LOINC TEST FLAG RESULT REFERENCE RANGE UPDA JACEK BY 2276-4 Ferritin [Mass/volume] in Serum or Plasma N 124 ng/mL 8 ng/mL - 388 ng/mL February 10, 2024 12:17:00 PM UTC (TECH: HC) ORDER 300: VITAMIN B12 (LOIN C: 2132-9) ORDER DATE: February 10, 2024 11:21:00 AM UTC Specimen Source: Serum/Plasm a Specimen Type: Acellular blo od (serum or plasma) specimen PERFORMING LAB: [address] [id number] Result Comment: Final Result Date: February 10, 2024 12:17:00 PM UTC (TECH: HC) LOINC TEST FLAG RESULT REFERENCE RANGE UPDA JACEK BY 2132-9 Cobalamin (Vitamin B12) [Mass/volume] in Serum or Plasma N 831 pg/mL 193 pg/mL - 986 pg/mL February 10, 2024 12:17:00 PM [facility] (TECH: HC) LABORATORY NARRATIVE RESULTS Information is not available [...] Description Effective Dates Offered Cessation Comment UpdatedBy [id number] Historical Tobacco smoking status Never Smoked Not Applicable [id number] on April 07, 2016 4:52:02 AM [facility] [id number] Historical Tobacco smoking status Former Smoker Yes [id number] on June 09, 2015 6:14:54 PM [facility] SOCIAL HISTORY - Gender Sex: Female SOCIAL [...] available. ENCOUNTERS ENCOUNTER INFORMATION Reason for Visit E78.5 HYPERLIPIDEMIA ,UNSPECIFIED Admission February 10, 2024 11:19:00 AM [facility] B [address] [address] Discharge February 10, 2024 7:04:00 PM [facility] DI SCHARGED TO HOME OR SELF CARE ENCOUNTER DIAGNOSES Notes information is not juan manuel ilable. Code System Diagnosis Onset Date Diagnosis information is not available. ABSTRACT DIAGNOSES Code System Diagnosis Updated By Abstract Diagnosis informati on is not available. CARE TEAM Care House Calls Nurse Role DOMINGO ANNE Primary Care DOMINGO ANNE Primary Attending DOMINGO ANNE Referring DOMINGO ANNE Admitting CARE TEAM CARE macerator operator Role on Team Status Start Date End Date Update d By OMID LANE MD PCP normal February 10, 2024 6:26:00 PM [place] February 10, 2024 7:04:00 PM [facility] [id number] on February 10, 2024 6:26:00 PM [facility] OMID LANE MD Referring normal February 10, 2024 6:25:59 PM [place] February 10, 2024 7:04:00 PM [facility] [id number] on February 10, 2024 6:26:00 PM [facility] OMID L[address] MD Attending normal February 10, 2024 6:25:59 PM [facility] February 10, 2024 7:04:00 PM [facility] [id number] on February 10, 2024 6:26:00 PM [facility] OMID L[address] MD Admitting normal February 10, 2024 6:25:59 PM [facility] February 10, 2024 7:04:00 PM [facility] [id number] on February 10, 2024 6:26:00 PM [facility] ABBY RAY APRN PCP normal February 10, 2024 11:20:26 AM [facility] February 10, 2024 6:26:00 PM [facility] [id number] on February 10, 2024 6:26:00 PM [facility]
--- OUTSIDE RECORDS SUMMARY | 2024-03-02 12:33 | XMS_ITS | Continuity of Care Document ---
Author Name Unknown Address [address] [place] [id number] Organization [facility] Phone Care Team Providers Care Hourly Associate Name Role Phone DOMINGO ANNE Unavailable DOMINGO ANNE Primary Care DOMINGO ANNE Admitting DOMINGO ANNE Primary Attending ALLERGIES AND ADVERSE REACTIONS ALLERGIES AND ADVERSE REACTIONS Code System Allergy Substance Adverse Reaction Date Reaction (Severity) Comment Status Reported By [place] 7480 RXNorm MACRODANTIN Rash Adverse reaction to substance mouth swells active [id number] on January 20, 2024 8:42:51 PM [facility] 7052 RXNorm MORPHINE Adverse reaction to substance pain active [id number] on January 20, 2024 8:42:51 PM [facility] FAMILY HISTORY RELATION: Father Status: Cause [...] MICHELE Earl Date of : December 23 LABORATORY RESULTS ORDER 100: UA AND MICRO/CULT IF INDICATED (LOINC: 63053-9) ORDER DATE: February 03, 2024 11:25:00 AM UTC Specimen Source: URINE Specimen Type: Urine specime n PERFORMING LAB: [address] [id number] Result Comment: Final Result Date: February 03, 2024 11:51:00 AM UTC (TECH: LT) LOINC TEST FLAG RESULT REFERENCE RANGE UPDA JACEK BY 5778-6 Color of Urine N jonn YELLOW February 03, 2024 11:51:00 AM UTC (TECH: LT) 5767-9 Appearance of Urine N clear CLEAR February 03, 2024 11:51:00 AM UTC (TECH: LT) 5792-7 Glucose [Mass/volume ] in Urine by Test strip N NORM NORMAL February 03, 2024 11:51:00 AM UTC (TECH: LT) 84800-5 Bilirubin.total [Mass/volume] in Urine by Automated test strip N NEGATIVE NEGATIVE January 11:51:00 AM UTC (TECH: LT) 5797-6 Ketones [Mass/volume ] in Urine by Test strip N NEGATIVE NEGATIVE February 03, 2024 11:51:00 AM UTC (TECH: LT) 2965-2 Specific gravity of Urine N 1.015 1.005 - 1.035 February 03, 2024 11:51:00 AM UTC (TECH: LT) 11204-4 Erythrocytes [#/volu me] in Urine by Automated test strip N NEGATIVE NEGATIVE February 03, 2024 11:51:00 AM UTC (TECH: LT) 83822-7 pH of Urine by Automated test strip N 6.00 5.0 - 7.5 February 02 024 11:51:00 AM UTC (TECH: LT) 81924-8 Protein [Presence] i n Urine by Test strip N 30 (1+) mg/dL NEGATIVE February 02 24 11:51:00 AM UTC (TECH: LT) 20343-1 Urobilinogen [Mass/volume] in Urine by Automated test strip N NORM NORMAL January 11:51:00 AM UTC (TECH: LT) 35511-8 Nitrate [Presence] i n Urine N NEGATIVE NEGATIVE February 03, 2024 11:51:00 AM UTC (TECH: LT) 73294-7 Leukocytes [#/volume ] in Urine by Test strip N TRACE (25) /mcL NEGATIVE February 03, 2024 11:51:00 AM UTC (TECH: LT) 68268-6 Other elements in Ur ine sediment N CONTAMINATED February 03, 2024 11:51:00 AM UTC (TECH: LT) 34723-8 Microscopic observat ion [Identifier] in Urine sediment by Light microscopy N YES February 03, 2024 11:51:00 AM UTC (TECH: LT) 67480-0 Erythrocytes [#/area ] in Urine sediment by Microscopy high power field N NONE SEEN 0-3 February 03, 2024 11:51:00 AM UTC (TECH: LT) 5821-4 Leukocytes [#/area] in Urine sediment by Microscopy high power field N 0-3 NONE SEEN February 03, 2024 11:51:00 AM UTC (TECH: LT) 33681-4 Epithelial cells.squamous [#/area] in Urine sediment by Microscopy high power field 10-20 NONE SEEN February 03, 2024 11:51:00 AM UTC (TECH: LT) 5769-5 Bacteria [#/area] in Urine sediment by Microscopy high power field N TRACE NONE SEEN February 03, 2024 11:51:00 AM UTC (TECH: LT) 74004-9 Hyaline casts [Presence] in Urine sediment by Light microscopy N 5-10 NONE SEEN February 03, 2024 11:51:00 AM UTC (TECH: LT) LABORATORY NARRATIVE RESULTS Information is [...] Description Effective Dates Offered Cessation Comment UpdatedBy [id number] Historical Tobacco smoking status Never Smoked Not Applicable [id number] on April 07, 2016 4:52:02 AM [place] [id number] Historical Tobacco smoking status Former Smoker Yes [id number] on June 09, 2015 6:14:54 PM [facility] SOCIAL HISTORY - Gender Sex: Female [...] available. ENCOUNTERS ENCOUNTER INFORMATION Reason for Visit R30.9 Admission February 03, 2024 11:24:00 AM [facility] B [address] [address] Discharge February 03, 2024 12:24:00 PM [facility] D ISCHARGED TO HOME OR SELF CARE ENCOUNTER DIAGNOSES Notes information is not juan manuel ilable. Code System Diagnosis Onset Date Diagnosis information is not available. ABSTRACT DIAGNOSES Code System Diagnosis Updated By Abstract Diagnosis informati on is not available. CARE TEAM Care Hourly Associate Role DOMINGO ANNE Referring DOMINGO ANNE Primary Care DOMINGO ANNE Admitting DOMINGO ANNE Primary Attending CARE TEAM CARE receiving clerk Role on Team Status Start Date End Date Update d By OMID LANE MD PCP normal February 03, 2024 11:38:06 AM [facility] February 03, 2024 12:24:00 PM [facility] [id number] on February 03, 2024 11:38:06 AM [facility] OMID L[address] MD Referring normal February 03, 2024 11:38:06 AM [facility] February 03, 2024 12:24:00 PM [facility] [id number] on February 03, 2024 11:38:06 AM [facility] OMID L[address] MD Attending normal February 03, 2024 11:38:05 AM [facility] February 03, 2024 12:24:00 PM [facility] [id number] on February 03, 2024 11:38:06 AM [facility] [address]ID L[address] MD Admitting normal February 03, 2024 11:38:05 AM [facility] February 03, 2024 12:24:00 PM [facility] [id number] on February 03, 2024 11:38:06 AM [facility] BACILIO Casas MD PHY PCP normal February 03, 2024 11:25:13 AM [facility] February 03, 2024 11:38:06 AM [facility] [id number] on February 03, 2024 11:38:06 AM [facility]
--- OUTSIDE RECORDS SUMMARY | 2024-03-02 12:33 | XMS_ITS | Continuity of Care Document ---
Author Name Unknown Address [address] [place], [place] [id number] Organization [facility] Phone Care Team Providers Care Cargo Handler Name Role Phone DOMINGO ANNE Primary Attending DOMINGO ANNE Admitting DOMINGO ANNE Primary Care DOMINGO ANNE Unavailable ALLERGIES AND ADVERSE REACTIONS ALLERGIES AND ADVERSE REACTIONS Code System Allergy Substance Adverse Reaction Date Reaction (Severity) Comment Status Reported By Updated By 7408 RXNorm MACRODANTIN Rash Adverse reaction to substance mouth swells active [id number] on January 20, 2024 8:42:51 PM [facility] 7052 RXNorm MORPHINE Adverse reaction to substance pain active [id number] on January 20, 2024 8:42:51 PM [facility] FAMILY HISTORY RELATION: Father Status: Cause [...] Patient: BAUTISTA SKYLER Rajat Date of : [birth year] 0 LABORATORY RESULTS ORDER 100: UA AND MICRO/CULT IF INDICATED (LOINC: 90634-5) ORDER DATE: February 22, 2024 11:49:00 AM UTC Specimen Source: URINE Specimen Type: Urine specime n PERFORMING LAB: [facility] [id number] Result Comment: Final Result Date: February 22, 2024 12:30:00 PM UTC (TECH: MRB) LOINC TEST FLAG RESULT REFERENCE RANGE UPDA JACEK BY 5778-6 Color of Urine N jonn YELLOW February 12:30:00 PM UTC (TECH: MRB) 5767-9 Appearance of Urine N clear CLEAR February 22, 2024 12:30:00 PM UTC (TECH: MRB) 5792-7 Glucose [Mass/volume ] in Urine by Test strip N NORM NORMAL February 21 12:30:00 PM UTC (TECH: MRB) 47393-0 Bilirubin.total [Mass/volume] in Urine by Automated test strip N NEGATIVE NEGATIVE February 21 024 12:30:00 PM UTC (TECH: MRB) 5797-6 Ketones [Mass/volume ] in Urine by Test strip N NEGATIVE NEGATIVE February 21 12:30:00 PM UTC (TECH: MRB) 2965-2 Specific gravity of Urine N 1.010 1.005 - 1.035 February 22, 2024 12:30:00 PM UTC (TECH: MRB) 81980-0 Erythrocytes [#/volu me] in Urine by Automated test strip N NEGATIVE NEGATIVE February 22, 2024 12:30:00 PM UTC (TECH: MRB) 37736-1 pH of Urine by Automated test strip N 6.00 5.0 - 7.5 February 22, 2024 12:30:00 PM UTC (TECH: MRB) 76292-8 Protein [Presence] i n Urine by Test strip N 100 (2+) mg/dL NEGATIVE February 22, 2024 12:30:00 PM UTC (TECH: MRB) 26228-3 Urobilinogen [Mass/volume] in Urine by Automated test strip N NORM NORMAL February 21, 2 024 12:30:00 PM UTC (TECH: MRB) 30878-9 Nitrate [Presence] i n Urine N NEGATIVE NEGATIVE February 22, 2024 12:30:00 PM UTC (TECH: MRB) 28218-6 Leukocytes [#/volume ] in Urine by Test strip N TRACE (25) /mcL NEGATIVE February 21 12:30:00 PM UTC (TECH: MRB) 65707-6 Other elements in Ur ine sediment N CONTAMINATED February 22, 2024 12:30:00 PM UTC (TECH: MRB) 73689-2 Microscopic observat ion [Identifier] in Urine sediment by Light microscopy N YES February 22, 2024 12:30:00 PM UTC (TECH: MRB) 64811-1 Erythrocytes [#/area ] in Urine sediment by Microscopy high power field N NONE SEEN 0-3 February 22, 2024 12:30:00 PM UTC (TECH: MRB) 5821-4 Leukocytes [#/area] in Urine sediment by Microscopy high power field N 1-5 NONE SEEN February 22, 2024 12:30:00 PM UTC (TECH: MRB) 05286-5 Epithelial cells.squamous [#/area] in Urine sediment by Microscopy high power field >30 NONE SEEN February 22, 2024 12:30:00 PM UTC (TECH: MRB) 5769-5 Bacteria [#/area] in Urine sediment by Microscopy high power field N 1+ NONE SEEN February 22, 2024 12:30:00 PM UTC (TECH: MRB) 79630-4 Hyaline casts [Presence] in Urine sediment by Light microscopy N 1-5 NONE SEEN February 22, 2024 12:30:00 PM UTC (TECH: MRB) 06657-2 Mucus [#/area] in Ur ine sediment by Microscopy low power field N 2+ NONE SEEN February 22, 2024 12:30:00 PM UTC (TECH: MRB) LABORATORY NARRATIVE RESULTS Information is not available [...] Description Effective Dates Offered Cessation Comment UpdatedBy [id number] Historical Tobacco smoking status Never Smoked Not Applicable [id number] on April 07, 2016 4:52:02 AM [facility] [id number] Historical Tobacco smoking status Former Smoker Yes [id number] on June 09, 2015 6:14:54 PM [facility] SOCIAL HISTORY - Gender Sex: Female [...] available. ENCOUNTERS ENCOUNTER INFORMATION Reason for Visit N30.0 Admission February 22, 2024 11:48:[address] [address] Discharge February 22, 2024 12:48:00 PM [facility] DISC HARGED TO HOME OR SELF CARE ENCOUNTER DIAGNOSES Notes information is not juan manuel ilable. Code System Diagnosis Onset Date Diagnosis information is not available. ABSTRACT DIAGNOSES Code System Diagnosis Updated By R35.0 ICD10 FREQUENCY OF MICTURITION LOB 6798 on February 28, 2024 5:52:31 PM [facility] R35.0 ICD10 FREQUENCY OF MICTURITION LOB 6798 on February 28, 2024 5:52:31 PM [facility] R30.9 ICD10 PAINFUL MICTURITION, UNSPECI FIED [id number] on February 28, 2024 5:52:31 PM [facility] CARE TEAM Care Cargo Handler Role DOMINGO ANNE Primary Attending DOMINGO ANNE Admitting DOMINGO ANNE Primary Care DOMINGO ANNE Referring CARE TEAM CARE cart pusher Role on Team Status Start Date End Date Update d By OMID LANE MD PCP normal February 21 4:00:00 AM [facility] February 22, 2024 4:00:00 AM [facility] [id number] on February 22, 2024 5:12:41 PM [facility] OMID L[address] MD Referring normal February 21 4:00:00 AM [facility] February 22, 2024 4:00:00 AM [place] [id number] on February 22, 2024 5:12:[address] MD Attending normal February 21 4:00:00 AM [facility] February 22, 2024 4:00:00 AM [place] [id number] on February 22, 2024 5:12:41 PM [facility] OMID L[address] MD Admitting normal February 21 4:00:00 AM [facility] February 22, 2024 4:00:00 AM [facility] [id number] on February 22, 2024 5:12:41 PM [facility] ABBY RAY APRN PCP normal February 22, 2024 11:48:55 AM [place] February 22, 2024 4:00:00 AM [facility] [id number] on February 22, 2024 5:12:41 PM [facility]
--- OUTSIDE RECORDS SUMMARY | 2024-03-02 12:34 | XMS_ITS | Clinical Summary ---
Author Name Unknown Address [address] [place] [address] Phone Organization [facility] Address [address] [place] [address] Phone Care Team Providers Care Greeting Card Writer Name Role Phone Smita ESCOBEDO, Jorje Arceo [phone] [ ] Conditions or Problems Problem Name Problem Code Onset Date Status Entry Date Provider Comment Standard Description Annotate Contusion of left lower leg, subsequent encounter(s) S80.12xD (ICD-10-CM) Active Arlen Feng Contusion of left lower leg, subsequent encounter Cellulitis of LLE L03.116 (ICD-10-CM) Active Arlen Feng Cellulitis of left lower limb 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 (SNOMED CT) Active Arlen Feng Peripheral vascular disease Benign Essential Hypertension 3245713 (SNOMED CT) Active Arlen Feng Benign essential hypertension Medications Medication Instructions Start Date Stop Date Generic Name [facility] Provider VALSARTAN 160 MG TABS 1 tablet po daily VALSARTAN [id number] Leti Dela Cruz ALPRAZOLAM 0.5 MG TABS Take one by mouth daily/PRN ALPRAZOLAM 44149173941 Lexi Gipson VIBRAMYCIN 100 MG CAPS Take by mouth twice a day DOXYCYCLINE HYCLATE 66632819120 Lexi Gipson TERBINAFINE HCL 250 MG TABS Take one by mouth daily TERBINAFINE HCL 02135131244 Lexi Gipson RANEXA 1000 MG ORAL TABLET EXTENDED RELEASE 12 HOUR Take by mouth twice a day RANOLAZINE 52526423146 Lexi Nascimentodox CLOPIDOGREL BISULFATE 75 MG TABS Take one by mouth daily CLOPIDOGREL BISULFATE 08350693264 Lexi Nascimentodox OMEPRAZOLE 40 MG CPDR Take one by mouth daily OMEPRAZOLE 34907426471 Lexi Nascimentodox NORVASC 10 MG TABS Take one by mouth daily AMLODIPINE BESYLATE 87083109904 Lexi Nascimentodox HYDROCODONE-ACET AMINOPHEN 7.5-325 MG TABS Q6H/PRN HYDROCODONE-ACET AMINOPHEN 35630808244 Lexi Nascimentodox DAILY MULTIVITAMIN CAPS Take one by mouth daily MULTIPLE VITAMINS-MINERAL S 85249122181 Lexi Nascimentodox METFORMIN HCL 500 MG TABS Take by mouth twice a day METFORMIN HCL 74449679224 Lexi Gipson LOVENOX 60 MG/0.6ML SUBCUTANEOUS SOLUTION 70 mg, SubCutaneous, Q12H ENOXAPARIN SODIUM 68842222793 Lexi Thorpex LOSARTAN POTASSIUM 100 MG TABS Take one by mouth daily LOSARTAN POTASSIUM 00293661764 Lexi Nascimentodox ACIDOPHILUS LACTOBACILLUS CAPS Take two by mouth daily LACTOBACILLUS 73586107483 Lexi Nascimentodox HYDRALAZINE HCL 50 MG TABS 2 Tab, Oral, BID HYDRALAZINE HCL 98447426115 Lexi Thorpex DORZOLAMIDE HCL 2 % SOLN 1 Drop, Eye Right, BID DORZOLAMIDE HCL 07534863618 Lexi Nascimentodox WARFARIN SODIUM 3 MG TABS Take one by mouth daily WARFARIN SODIUM 66719935655 Lexi Nascimentodox CARVEDILOL 6.25 MG TABS Take one by mouth 3 times daily, morning, afternoon and evening. CARVEDILOL 07714051597 Lexi Nascimentodox ATORVASTATIN CALCIUM 80 MG TABS Take one by mouth daily ATORVASTATIN CALCIUM 24569318390 Lexi Nascimentodox AMOXICILLIN-POT CLAVULANATE 875-125 MG TABS Take by mouth twice a day AMOXICILLIN-POT CLAVULANATE 18079089316 Lexi Gipson Medications Administered No information available. Allergies, Adverse Reactions, Alerts Allergy Name Reaction Description Start Date Severity Statu s Provider NITROFURANTOIN MACROCRYSTAL Moderate Active Lexi Gipson MORPHINE SULFATE (PF) Moderate Active Lexi Gipson MACRODANTIN Moderate Active Lexi Gipson Results Date Name Value Unit Range Flag Description Clinical Lists Update: Prelo ad HGBA1C 6.40 % Hemoglobin A1c/Hemoglobin, total in Blood - % Office Visit: 12 ORALTOBACUSE Never Tobacco smoking status CIGARET SMKG yes Tobacco smoking status SMOK STATUS Former smoker Tob acco smoking status MEDS REVIEW Done Documenta tion of current medications (procedure) Plan of Care No information available. Procedures No information available. Vital Signs Date Name Value Unit Description BMI (Body Mass Index) 27.31 kg/m2 Bod y Mass Index (Ratio) Body Temperature 96.9 [degF] temperat ure E&M BP Diastolic 70 mm[Hg] blood pressu re, diastolic BP Systolic 126 mm[Hg] blood pressur e, systolic Heart Rate 70 /min pulse rate Respiratory Rate 16 /min respirat ory rate E&M Weight Measured 154.2 [lb_av] weight E& M Height 63 [in_us] height E&M Immunizations No information available. Advance Directives Directive Description Start Date NO LIVING WILL ON FILE
--- OUTSIDE RECORDS SUMMARY | 2024-03-02 12:34 | XMS_ITS | Continuity of Care Document ---
Author Name Unknown Organization [facility] Address [address] [place] [address] Phone Care Team Providers Care Neurosurgery Spine Physician Name Role Phone Mary Cool OD Unavailable Unavailable Allergies, Adverse Reactions, Alerts Substance Reaction Status Criticality NITROFURANTOIN MACROCRYSTALLINE Blister(mild) Active No Information morphine Blister(moderate) Active No Informa tion Medications Medication Instructions Dosage Effective Dates (start - stop) Status Comments Combigan 0.2 %-0.5 % eye drops instill 1 drop by ophthalmic route every 12 hours into both eyes 1 drop - Active dorzolamide 2 % eye drops instill 1 drop by ophthalmic route 2 times every day into both eyes 1 drop - Active Durezol 0.05 % eye drops place 1 drop by ophthalmic route twice a day into both eyes - Active Keppra 250 mg tablet take 2 tablet by or al route 2 times every day 500 MG - Active Ranexa 500 mg tablet,extended release take 1 tablet by oral route 2 times every day - Active amlodipine 10 mg tablet take 1 tablet by oral route every day 10 MG - Active omeprazole 40 mg capsule,delayed release take 1 capsule by oral route every day before a meal 40 MG - Active hydralazine 10 mg tablet take 1 tablet by oral route 2 times every day with food 10 MG - Active metformin 500 mg tablet take 1 tablet by oral route 2 times every day with morning and evening meals 500 MG - Active Plavix 75 mg tablet take 1 tablet by ora l route every day 75 MG - Active losartan 100 mg tablet take 1 tablet by oral route every day 100 MG - Active carvedilol 3.125 mg tablet take 1 tablet by oral route 2 times every day with food 3.125 MG - Active Coumadin 2 mg tablet take 1 tablet by or al route every day - Active Lortab Elixir 10 mg-300 mg/15 mL oral solution take 11.25 milliliter by oral route every 4 - 6 hours as needed - Active Xanax 0.5 mg tablet take 1 tablet by ora l route every day 0.5 MG - Active valsartan 160 mg tablet take 1 tablet by oral route every day 160 MG - Active Procedures Procedure Date OFFICE/OUTPATIENT VISIT, NEW Advance Directives Directive Yes / No Effective Date File Name No Information Encounters Encounter Description Practice Location Reason(s) For Visit Diagnoses Date Provider Providers Copied on Encounter OFFICE/OUTPAT IENT VISIT, [facility] , [address] [place], [place], [facility], tel:[phone] [facility] Glaucoma consult (chief complaint) Primary open angle glaucoma (POAG) of both eyes, indeterminate stagePseudophakia of both eyesIritis of right eye 9 Silvinashahida Hernandez. [address] [place], [place], [facility], . tel:[phone] Specialist : Zurdo Carmen [address] [place] [address] [address], [place], [place], [facility]. tel:[phone] erring Provider: Zurdo Earl, [address] [place] [address] [address], [place], [place], [facility]. tel:[phone] Family History Family Member Type Diagnosis Age At Onset Problem (finding) Family history of catar act Problem (finding) Family history of Retin al disease Problem (finding) Family history of glauc jalen Problem (finding) Family history of hyper tension Problem (finding) Family history of Diabe esme mellitus Problem (finding) Family history of Cance r, unknown Payers Payer name Insurance type Covered democrat ID Authoriza timitchell(s) Medicare [place] MB [id number] [facility] Healthcare Supplement [id number] CI [id number] Social History Type Description Quantity Date Captured Comments Alcohol Use Details Unknown Caffeine Use Details Unknown Tobacco Use Status Ex-cigarette smoker 019 Smoking Status Former smoker Smoking Tobacco Use Details Cigarette: Age Stopped: 52 Cigarette: No Details Available Sex Female Chief Complaint And Reason For Visit From encounter dated '06/01/2019 13:45'. Glaucoma consult (chief complaint). Description: The 78 year old female presents for evaluation of Glaucoma consult in the right and left eyes. The vision is worsening vision. Patient states she had her cataracts removed, about 5 year ago and then 14 years ago. Patient states she had shingles in 2013, went into right eye. Patient denies any drop problems and is using drops correctly. Patient states she has eye pain, floaters, headaches (temporally, back of head and forehead), sensitivity to light. Patient states she was diagnosed with glaucoma about [address] Patient [address] 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 Patient states she is type two diabetic. Patient has had blood transfusion, 1992, 2008. Patient states she does have history of kidney stones, 1987. Patient has cyst in both kidneys. Patient denies any steroid use, anemia, and trauma. Reason For Referral Reason For Referral No Information Plan Of Treatment Date Type Action Status Goal Tobacco cessation counseling completed Referral Ordered: Zurdo Carmen [facility] : Ophthalmology (related to Pseudophakia of both eyes) ordered Referral Referred To: Zurdo Carmen [address] [facility]
[address] [place], [place], [address] [phone] Ordered: Referrals: [facility] : Ophthalmology. Zurdo Carmen. Assume care ordered History Of Present Illness Encounter Date Complaint History Of Prese nt Illness Glaucoma consult The 78 year old female presents for evaluation of Glaucoma consult in the right and left eyes. The vision is worsening vision. Patient states she had her cataracts removed, about 5 year ago and then 14 years ago. Patient states she had shingles in 2013, went into right eye. Patient denies any drop problems and is using drops correctly. Patient states she has eye pain, floaters, headaches (temporally, back of head and forehead), sensitivity to light. Patient states she was diagnosed with glaucoma about [address] Patient [address] 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 Patient states she is type two diabetic. Patient has had blood transfusion, 1992, 2008. Patient states she does have history of kidney stones, 1987. Patient has cyst in both kidneys. Patient denies any steroid use, anemia, and trauma. Functional Status Date Functional Assessmen t No Information Instructions Date Instruction Additional Infor paige Impression/Plan Assessments Type Assessment Date assessment Primary open angle g laucoma (POAG) of both eyes, indeterminate stage assessment Pseudophakia of both eyes assessment Iritis of right eye Patient Care Teams Name Effective Dates (start - stop) Status Members No Information
--- OUTSIDE RECORDS SUMMARY | 2024-03-02 12:34 | XMS_ITS | Continuity of Care Document ---
Author Name Unknown Organization [facility] Address [address] [address] Phone Care Team Providers Care Cigar Head Holer Name Role Phone Zunilda SLOAN Bong Unavailable Unavailable Allergies, Adverse Reactions, Alerts Substance Reaction Status Criticality morphine Active No Information NITROFURANTOIN MACROCRYSTALLINE Active No Information Medications Medication Instructions Dosage Effective Dates (start - stop) Status Comments Combigan 0.2 %-0.5 % eye drops instill 1 drop by ophthalmic route every 12 hours into affected eye(s) 1.00 drop - Active Ranexa 500 mg tablet,extended release take 1 tablet by oral route 2 times every day - Active dorzolamide 2 % eye drops instill 1 drop by ophthalmic route 2 times every day into affected eye(s) 1 drop - Active Durezol 0.05 % eye drops instill 1 drop by ophthalmic route every day into affected eye(s) ;start 24hrs post op x 2 wks; then 2 times/day x 7 days; then taper 1 drop - Active amlodipine 10 mg tablet take 1 tablet by oral route every day 10 MG - Active losartan 100 mg tablet take 1 tablet by oral route every day 100 MG - Active metformin 500 mg tablet take 1 tablet by oral route 2 times every day with morning and evening meals 500 MG - Active omeprazole 40 mg capsule,delayed release take 1 capsule by oral route every day before a meal 40 MG - Active hydralazine 10 mg tablet take 1 tablet by oral route 2 times every day with food 10 MG - Active carvedilol 3.125 mg tablet take 1 tablet by oral route 2 times every day with food 3.125 MG - Active Xanax 0.5 mg tablet take 1 tablet by oral route every day 0.5 MG - Active Nahant 5 mg-325 mg tablet take 1 tablet by oral route every 6 hours as needed for pain as needed - Active cyanocobalamin (vit B-12) 1,000 mcg tablet take 1 tablet by oral route every day 1 tablet - Active valsartan 160 mg tablet take 1 tablet by oral route every day 160 MG - Active Vitamin D3 50 mcg (2,000 unit) tablet One Tablet by mouth once daily - Active warfarin 2 mg tablet take 1.5 tablet by oral route every Mon, Tue and Tue, Tue - Active Procedures Procedure Date New Office Visit Level IV Advance Directives Directive Yes / No Effective Date File Name No Information Encounters Encounter Description Practice Location Reason(s) For Visit Diagnoses Date Provider Providers Copied on Encounter New Office Visit Level IV [facility] [address], [id number], tel:[phone] [facility]. Osteoarthritis (chief complaint)Join t Pain (chief complaint)Nail changes (chief complaint) Body mass index (BMI) 27.0-27.9, adultGenerali zed osteoarthriti sNail dystrophy 0 [facility] [address] [facility] [address], [place], [address]. tel:[phone] , [address] [place] [address], [address].Refe rring Provider: Delia Jackson, [address] [place] [address], [address]. tel:[phone] Family History Family Member Type Diagnosis Age At Onset Son Problem CLL Cancer Sister Problem heart attack Sister Problem malignant neoplasm of ovary Father Problem prostate cancer Mother Problem cancer of colon Son Problem (finding) Payers Payer name Insurance type Covered green party ID Authoriza tion(s) Medicare 44669 MB [id number] Supplemental [id number] CI [id number] Social History Type Description Quantity Date Captured Comments Alcohol Use Details No Caffeine Use Details Unknown Tobacco Use Status No Information Smoking Status Unknown if ever smoked Non-Smoking Tobacco Use Details : No Details Available : No Details Available Sex Female Vital Signs Date / Time: Height Weight BMI Pulse Rate Blood Pressure Temperature Respiratory Rate Body Surface Area Head Circumference Head Circ. Percentile Wt./Ron. Percentile BMI percentile Pulse Ox Inhaled Ox 3:05 PM 63.50 in 72.756 kg (160.40 lbs) 27.9 7 kg/m eter (2) 64 /min 152/74 mm[Hg] 98.20 F Chief Complaint And Reason For Visit From encounter dated '06/16/2020 15:00'. Osteoarthritis (chief complaint) Joint Pain (chief complaint) Nail changes (chief complaint) Reason For Referral Reason For Referral No Information Plan Of Treatment Date Type Action Status Goal Lifestyle education regardin g diet completed Referral Ordered: Dermatology (related to Nail dystrophy) ordered Referral Ordered: Referrals: Dermatology. Evaluate and treat ordered History Of Present Illness Encounter Date Complaint History Of Prese nt Illness Osteoarthritis Joint Pain Nail changes Functional Status Date Functional Assessmen t No Information Instructions Date Instruction Additional Infor paige 1. She takes Nahant P RN for pain relief. 2. She now limits/avoids oral NSAIDS. She is on a blood thinner and she has a history of coronary artery disease. 3. She has had 3 back surgeries. 4. She has done some physical therapy. 5. She has seen a network operations center engineer for her feet. 6. She has tried Tylenol PRN as directed. 7. Weight loss would be helpful.8. I gave her a handout on osteoarthritis to take home and review. 9. Follow up with me as needed. 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 This is her biggest complaint. She has been seeing a network operations center engineer. Reportedly nail clippings were negative for fungus. There is concern that her dystrophic nails may be due to psoriasis. The patient has no history of psoriatic skin lesions otherwise. I am going to refer her to dermatology to help evaluate/manage this further. Patient with psoriasis can have/develop psoriatic arthritis. See above regarding arthritis. This patient is taking Nahant PRN. Currently her arthritis is not the issue. Follow up with me as needed. 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
--- NOTE | 2024-03-02 12:37 | ED_ITS ---
Discharge Plan Disposition Patient Disposition: Admitted Clinical Impressions Clinical Impression: Acute exacerbation of CHF (congestive heart failure), Atrial flutter with rapid ventricular response, Hypomagnesemia, Acute UTI Discharge ED Provider: Bonita Stubbs General Adult HPI <Elias Rodríguez MD - Last Filed: 03/02/24 17:11> General Chief complaint: Chest Pain Stated complaint: Chest Pain Time Seen by Provider: 03/02/24 12:37 Mode of Arrival: Wheelchair Source of Information: Patient and Relative Limitations: No Limitations Description of Symptoms (Recalled from ER Triage Doc. by RN): Patient presents to ED with chest pain and heart racing. Son states patient has been at [facility] for 5 week for therapy after a fall at home. Patient told her son today that she needed to go see her doctor. Patient was seen by her PCP this morning and heart rate was found to be 130. PCP sent patient to [facility] at that time. Patient states pain is substernal and radiating to her left shoulder. Patient has hx of afib and bypass surgery. History of Present Illness HPI narrative: The patient presents with a chief complaint of an elevated heart rate and symptoms concerning to her for a bladder infection. She reports that her heart rate issues started a couple of days ago and worsened today, with rates reaching 130-140 bpm since yesterday. She denies any chest pain. Symptoms have been constant for approximately 48 hours. She also mentions experiencing severe pain in the lower urinary tract area, suspecting a bladder infection due to previous cultures showing white blood cells in her kidneys and bladder. She reports associated dysuria. The patient has a recent history of significant trauma from a fall five weeks ago, resulting in three brain bleeds and a broken pinky. Her management was at the [facility]. She reports that surgical intervention was required to relieve pressure around her eyes. Since the incident, she has been experiencing ongoing symptoms including headaches, dizziness, and back pain, which restricts her ability to sit up from bed. She also notes swelling in her bilateral lower extremities. She denies any headaches at this time. She denies any flank pain. She reports she has been managed with diuretics while at [facility] facility, at which she was recently discharged The patient has a pertinent past medical history of arrhythmia, CAD, including the placement of seven stents. She is currently on Coumadin. Recent symptoms include shortness of breath, chest pain since yesterday, and notably swollen legs and feet. Please note that above description of symptoms, in this electronic medical record under categorization of recalled from ER triage doctor by RN are reflective of an initial nursing assessment, however, is not reflective of my full history and physical exam that was personally taken and clarified. Consequentially, this preceding description of symptoms, which may include the patient's categorized chief complaint in the EMR, do not reflect my personal clinical impression, and the ultimate description of history of present illness and patient stated complaints should be deferred to this section of the note. Unless stated otherwise or congruent with this section of the note, additional signs, symptoms, or incongruence should be interpreted as inaccurate with my clinical impression. Related Data Home Medications Medication Instructions Recorded Confirmed alprazolam 0.5 mg tablet 0.25 mg PO HS 30 days #15 tabs 12/25/18 05/27/20 amlodipine 10 mg tablet 10 mg PO DAILY 12/25/18 05/27/20 aspirin 81 mg chewable tablet 81 mg PO DAILY 12/25/18 05/27/20 atorvastatin 80 mg tablet 80 mg PO DAILY 90 days #90 tabs 12/25/18 05/27/20 brimonidine 0.2 %-timolol 0.5 % ophthalmic (eye) 37 days 12/25/18 05/27/20 eye drops difluprednate 0.05 % eye drops ophthalmic (eye) 25 days 12/25/18 05/27/20 dorzolamide 2 % eye drops ophthalmic (eye) 37 days 12/25/18 05/27/20 hydralazine 10 mg tablet 10 mg PO BID 90 days #180 tabs 12/25/18 05/27/20 metformin 500 mg tablet,extended 500 mg PO BID 90 days #180 tabs 12/25/18 05/27/20 release 24 hr omeprazole 40 mg capsule,delayed 40 mg PO DAILY 30 days #30 caps 12/25/18 05/27/20 release ranolazine 500 mg tablet,extended 1,000 mg PO BID 30 days #120 tabs 12/25/18 05/27/20 release,12 hr valsartan 160 mg tablet 160 mg PO DAILY 30 days #30 tabs 12/25/18 05/27/20 carvedilol 6.25 mg tablet 6.25 mg PO Q8H 05/12/20 05/27/20 hydrocodone 5 mg-acetaminophen 325 1 tab PO QHS PRN 05/12/20 05/27/20 mg tablet warfarin 2 mg tablet 2 mg PO .COMPLEX 05/12/20 05/27/20 warfarin 2.5 mg tablet (Coumadin) 1.5 mg PO .COMPLEX 05/12/20 05/27/20 Previous Rx's Medication Instructions Recorded duloxetine 60 mg capsule,delayed 60 mg PO DAILY 30 days #30 caps 05/27/20 release methylprednisolone 4 mg tablets in See Rx Instructions PO PER PKG DIR 05/27/20 a dose pack (Medrol ([place])) #21 tabs nystatin-triamcinolone 100,000 1 applic topical DAILY #30 grams 07/15/21 unit/gram-0.1 % topical ointment Allergies Allergy/AdvReac Type Severity Reaction Status Date / Time nitrofurantoin Allergy Intermediate Rash Verified 03/02/24 16:03 [From Macrodantin] morphine Allergy Unknown Unknown Verified 03/02/24 16:03 allergy reaction PFS <Elais Rodríguez MD - Last Filed: 03/02/24 17:11> [facility] Disclaimer: The information contained in this section may have been updated after the patient was seen, as this information can be updated by other users. Medical History (Updated 03/02/24 @ 19:01 by ABA De La Torre) Sleep apnea A-fib Emphysema lung Surgical History (Updated 03/02/24 @ 19:01 by ABA De La Torre) Hx of CABG Social History (Updated 03/02/24 @ 19:03 by ABA De La Torre) Smoking Status: Never smoker alcohol intake: never substance use type: denies use current occupational status: retired Travel in the last 8 weeks: None household members: spouse housing: house <Elias Rodríguez MD - Last Filed: 03/02/24 17:11> ROS Obtained: Yes other As per HPI Physical Exam <Elias Rodríguez MD - Last Filed: 03/02/24 17:11> General General appearance: alert and in no apparent distress Head Head exam: atraumatic and normocephalic Eye Eye exam: Present normal appearance Neck Neck exam: Present normal inspection Chest Chest inspection: Present normal inspection and symmetric chest wall rise Respiratory Respiratory exam: Present normal lung sounds bilaterally; Absent respiratory distress Cardiovascular Cardiovascular exam: Present normal rhythm and tachycardia Abdominal Exam Abdominal exam: Present soft Abdominal tenderness: Present suprapubic and mild Neurological Exam Neurological exam: Present alert and oriented X3 Psychiatric Psychiatric exam: Present normal affect and normal mood Skin Skin exam: Present warm and dry Other Other exam information: Bilateral lower extremity edema. No asymmetry of lower extremities. Left forearm in cast Medical Decision Making <Elias Rodríguez MD - Last Filed: 03/02/24 17:11> Medical Records Medical records reviewed: Yes I reviewed the patient's medical records. [place] Inquiry Pt receiving controlled substance: No Vital Signs: 03/02/24 12:23 03/02/24 12:30 03/02/24 13:00 Temperature 98.8 F Temperature Source Oral Pulse Rate 132 H 133 H Pulse Rate [Right Radial] 131 H Respiratory Rate 20 26 H Blood Pressure 170/102 H 157/96 H Blood Pressure [Right Arm] 182/110 H Blood Pressure Mean 116 Blood Pressure Mean [Right Arm] 134 Blood Pressure Source [Right Arm] Automatic Cuff Blood Pressure Position [Right Arm] Sitting 02 Sat by Pulse Oximetry 98 96 97 Oxygen Delivery Method Room Air Room Air Room Air 03/02/24 13:30 03/02/24 14:30 03/02/24 15:00 Temperature Temperature Source Pulse Rate 132 H 133 H 137 H Pulse Rate [Right Radial] Respiratory Rate 28 H 22 18 Blood Pressure 157/97 H 143/94 H 154/92 H Blood Pressure [Right Arm] Blood Pressure Mean 106 Blood Pressure Mean [Right Arm] Blood Pressure Source [Right Arm] Blood Pressure Position [Right Arm] 02 Sat by Pulse Oximetry 96 93 L 94 L Oxygen Delivery Method Room Air Room Air 03/02/24 15:30 03/02/24 15:35 03/02/24 16:00 Temperature Temperature Source Pulse Rate 137 H 137 H 136 H Pulse Rate [Right Radial] Respiratory Rate 23 23 18 Blood Pressure 123/85 132/85 134/80 Blood Pressure [Right Arm] Blood Pressure Mean Blood Pressure Mean [Right Arm] Blood Pressure Source [Right Arm] Blood Pressure Position [Right Arm] 02 Sat by Pulse Oximetry 96 95 97 Oxygen Delivery Method Room Air Room Air Room Air 03/02/24 16:30 03/02/24 17:00 03/02/24 17:30 Temperature Temperature Source Pulse Rate 134 H 135 H 141 H Pulse Rate [Right Radial] Respiratory Rate 24 22 23 Blood Pressure 138/90 145/91 H 147/83 H Blood Pressure [Right Arm] Blood Pressure Mean 105 Blood Pressure Mean [Right Arm] Blood Pressure Source [Right Arm] Blood Pressure Position [Right Arm] 02 Sat by Pulse Oximetry 94 L 95 96 Oxygen Delivery Method Room Air Room Air 03/02/24 18:00 03/02/24 18:05 Temperature 97.9 F Temperature Source Oral Pulse Rate 138 H 132 H Pulse Rate [Right Radial] Respiratory Rate 18 22 Blood Pressure 140/77 128/72 Blood Pressure [Right Arm] Blood Pressure Mean Blood Pressure Mean [Right Arm] Blood Pressure Source [Right Arm] Blood Pressure Position [Right Arm] 02 Sat by Pulse Oximetry 97 Oxygen Delivery Method Room Air Room Air Lab Data Lab Results 03/02/24 12:41: PT 11.9, INR 1.11 H, Sodium 131 L, Potassium 4.4, Chloride 104, Carbon Dioxide 21 L, Anion Gap 10.4, BUN 11, Creatinine 0.70, Estimated Creat Clear 37, Estimated GFR 80, Est GFR ( Amer) 96, Glucose 94, Calcium 9.3, Magnesium 0.8 L, Total Bilirubin 1.1, AST 60 H, ALT 31, Alkaline Phosphatase 70, Troponin I 0.03, NT-Pro-B Natriuret Pep 7220 H, Total Protein 6.8, Albumin 3.8, Globulin 3.0, Albumin/Globulin Ratio 1.3 03/02/24 13:08: Urine Color Yellow, Urine Appearance Clear, Urine pH 5.5, Ur Specific [place] <= 1.005, Urine Protein Negative, Urine Glucose (UA) Negative, Urine Ketones Negative, Urine Blood Negative, Urine Nitrate Negative, Urine Bilirubin Negative, Urine Urobilinogen 0.2, Ur Leukocyte Esterase Negative, Urine RBC None, Urine WBC 3-5, Ur Squamous Epith Cells 5-10, Urine Bacteria Trace 03/02/24 13:30: WBC 5.5, RBC 2.80 L, Hgb 10.5 L, Hct 31.6 L, MCV 112.7 H, MCH 37.5 H, MCHC 33.2, RDW 15.5, Plt Count 126 L, MPV 8.0, Neut % (Auto) 63.5, Lymph % (Auto) 28.4, [place] % (Auto) 5.6, Eos % (Auto) 2.1, Baso % (Auto) 0.4, Neut # (Auto) 3.5, Lymph # (Auto) 1.6, [place] # (Auto) 0.3, Eos # (Auto) 0.1, Baso # (Auto) 0.0 03/02/24 16:03: Troponin I 0.02 03/02/24 13:30 03/02/24 12:41 Orders (Tests/Meds): ED MEDICATIONS Generic Name Dose Route Start Last Admin Trade Name Freq PRN Reason Stop Dose Admin Acetaminophen 650 mg 03/02/24 18:09 Acetaminophen 325mg Tab PO 04/01/24 18:08 Q4HP PRN Fever or Mild Pain (1-3) Ceftriaxone Sodium 1 gm/ 50 mls @ 100 mls/hr 03/02/24 16:15 03/02/24 16:45 Sodium Chloride IV 03/12/24 16:14 100 mls/hr Q24H RUBY Administration Diltiazem HCl 100 mg/ Sodium 100 mls @ 10 mls/hr 03/02/24 16:43 03/02/24 22:26 Chloride IV 04/01/24 16:42 10 mg/hr .Q10H RUBY 10 mls/hr Titration Protocol 10 MG/HR Miscellaneous 1 each 03/02/24 22:31 Pharmacy Consult Request NOTAPPLIC 03/02/24 22:32 CONSULT PHARMACY ONE Promethazine HCl 25 mg 03/02/24 18:09 Promethazine Hcl 25mg/Ml 1ml Vial IV 04/01/24 18:08 Q6HP PRN Nausea And Vomiting Simethicone 160 mg 03/02/24 22:30 Simethicone 80mg Chewable Tablet PO 04/01/24 22:29 Q6HP PRN Gas Pain and Discomfort Sodium Chloride 25 ml 03/02/24 18:09 Sodium Chloride 0.9% 25ml Bag IV 04/01/24 18:08 NEEDED PRN for Use with IV Promethazine Discontinued Medications Generic Name Dose Route Start Last Admin Trade Name Freq PRN Reason Stop Dose Admin Diltiazem HCl 10 mg 03/02/24 16:43 03/02/24 17:26 Diltiazem 25mg/5ml Vial IV 03/02/24 16:44 10 mg ONCE ONE Administration Lactated Ringer's 1,000 mls @ 999 mls/hr 03/02/24 12:52 03/02/24 13:02 Lactated Ringer's 1000 Ml Bag IV 03/02/24 13:52 999 mls/hr .Q1H1M ONE Administration Magnesium Sulfate 2 gm in 50 mls @ 50 mls/hr 03/02/24 14:17 03/02/24 14:31 Magnesium Sulfate 2gm/50ml Premix IV 03/02/24 15:16 50 mls/hr ONCE ONE Administration Magnesium Sulfate 2 gm in 50 mls @ 50 mls/hr 03/02/24 16:00 03/02/24 17:26 Magnesium Sulfate 2gm/50ml Premix IV 03/02/24 16:59 50 mls/hr ONCE ONE Administration Iopamidol 70 ml 03/02/24 13:59 03/02/24 14:00 Iopamidol-370 (76%);100ml Bottle IV 03/02/24 14:00 70 ml ONCE ONE Administration Metoprolol Tartrate 5 mg 03/02/24 15:30 03/02/24 15:36 Metoprolol Tartrate 5mg/5ml Vial IV 03/02/24 15:31 5 mg ONCE ONE Administration Sodium Chloride 10 ml 03/02/24 13:59 03/02/24 14:00 Sodium Chloride 0.9% 10ml Syr (Rad Only) IV 03/02/24 14:00 10 ml ONCE ONE Administration Sodium Chloride 50 ml 03/02/24 13:59 03/02/24 14:00 0.9 % Sodium Chloride 50 Ml Vial IV 03/02/24 14:00 50 ml ONCE ONE Administration ORDERS Category Date Time Status CT angio abdomen pelvis Stat Cat Scan 03/02/24 12:[address] head/brain wo con Stat Cat Scan 03/02/24 12:52 Completed CTA Chest [CT angio chest PE protocol] Stat Cat Scan 03/02/24 12:52 Completed Consult to Cardiology [CONS] Routine Cons 03/02/24 17:56 Active BNP [NT Pro Brain Natriuretic Pep.] Stat Lab 03/02/24 12:41 Completed Basic Metabolic Panel AMLAB Lab 03/03/24 06:00 Ordered Basic Metabolic Panel AMLAB Lab 03/04/24 06:00 Ordered Basic Metabolic Panel AMLAB Lab 03/05/24 06:00 Ordered CBC w/Auto Diff [Complete Blood Count Auto Diff] Stat Lab 03/02/24 13:30 Completed CMP [Comprehensive Metabolic Panel] Stat Lab 03/02/24 12:41 Completed Complete Blood Count Auto Diff AMLAB Lab 03/03/24 06:00 Ordered Complete Blood Count Auto Diff AMLAB Lab 03/04/24 06:00 Ordered Complete Blood Count Auto Diff AMLAB Lab 03/05/24 06:00 Ordered MAG [Magnesium] Stat Lab 03/02/24 12:41 Completed PT INR [Prothrombin Time INR] Stat Lab 03/02/24 12:41 Completed Troponin I Q3H Lab 03/02/24 12:41 Completed Troponin I Q3H Lab 03/02/24 16:03 Completed Urinalysis and Microscopic Stat Lab 03/02/24 13:08 Completed Urine Culture Stat Micro 03/02/24 13:15 Received Medical Decision Narrative: Patient with history and exam per above presenting for evaluation of multiple complaints, including tachycardia, dysuria, suprapubic pain, resolved headache Diagnoses considered include pulmonary embolism, intracranial hemorrhage, volume overload, electrolyte abnormality, ACS, other dysrhythmia. ED workup and treatment included: CBC, CMP, PT, INR, mag, troponins, CT head without contrast, CTA chest, CTA abdomen pelvis, LR initially ordered however discontinued after approximately 300 cc, 2 doses of 2 mg magnesium, metoprolol 5 mg x 1 EKG was independently visualized and interpreted by me significant for narrow complex tachycardia, normal axis, qtc 496 Labs were independently interpreted by me, significant for hypomagnesemia, BNP 7220, hemoglobin 10.5, other labs pending Imaging pending at this time. Patient's dysrhythmia at this time is thought to be secondary to electrolyte abnormalities, in the setting of recent diuresis, with associated ongoing third spacing, known history of atrial fibrillation. She remains minimally symptomatic from the dysrhythmia itself, as well as hemodynamically stable, normotensive, thus will elect to address underlying electrolyte abnormalities prior to consideration of calcium channel melinda, additional dose of metoprolol, or consideration of cardioversion. CT imaging pending at this time, which will additionally help to guide most appropriate management when resulted. Care was transferred to incoming physician. <Bonita Stubbs, DO - Last Filed: 03/02/24 22:54> Vital Signs: 03/02/24 12:23 03/02/24 12:30 03/02/24 13:00 Temperature 98.8 F Temperature Source Oral Pulse Rate 132 H 133 H Pulse Rate [Right Radial] 131 H Respiratory Rate 20 26 H Blood Pressure 170/102 H 157/96 H Blood Pressure [Right Arm] 182/110 H Blood Pressure Mean 116 Blood Pressure Mean [Right Arm] 134 Blood Pressure Source [Right Arm] Automatic Cuff Blood Pressure Position [Right Arm] Sitting 02 Sat by Pulse Oximetry 98 96 97 Oxygen Delivery Method Room Air Room Air Room Air 03/02/24 13:30 03/02/24 14:30 03/02/24 15:00 Temperature Temperature Source Pulse Rate 132 H 133 H 137 H Pulse Rate [Right Radial] Respiratory Rate 28 H 22 18 Blood Pressure 157/97 H 143/94 H 154/92 H Blood Pressure [Right Arm] Blood Pressure Mean 106 Blood Pressure Mean [Right Arm] Blood Pressure Source [Right Arm] Blood Pressure Position [Right Arm] 02 Sat by Pulse Oximetry 96 93 L 94 L Oxygen Delivery Method Room Air Room Air 03/02/24 15:30 03/02/24 15:35 03/02/24 16:00 Temperature Temperature Source Pulse Rate 137 H 137 H 136 H Pulse Rate [Right Radial] Respiratory Rate 23 23 18 Blood Pressure 123/85 132/85 134/80 Blood Pressure [Right Arm] Blood Pressure Mean Blood Pressure Mean [Right Arm] Blood Pressure Source [Right Arm] Blood Pressure Position [Right Arm] 02 Sat by Pulse Oximetry 96 95 97 Oxygen Delivery Method Room Air Room Air Room Air 03/02/24 16:30 03/02/24 17:00 03/02/24 17:30 Temperature Temperature Source Pulse Rate 134 H 135 H 141 H Pulse Rate [Right Radial] Respiratory Rate 24 22 23 Blood Pressure 138/90 145/91 H 147/83 H Blood Pressure [Right Arm] Blood Pressure Mean 105 Blood Pressure Mean [Right Arm] Blood Pressure Source [Right Arm] Blood Pressure Position [Right Arm] 02 Sat by Pulse Oximetry 94 L 95 96 Oxygen Delivery Method Room Air Room Air 03/02/24 18:00 03/02/24 18:05 Temperature 97.9 F Temperature Source Oral Pulse Rate 138 H 132 H Pulse Rate [Right Radial] Respiratory Rate 18 22 Blood Pressure 140/77 128/72 Blood Pressure [Right Arm] Blood Pressure Mean Blood Pressure Mean [Right Arm] Blood Pressure Source [Right Arm] Blood Pressure Position [Right Arm] 02 Sat by Pulse Oximetry 97 Oxygen Delivery Method Room Air Room Air Lab Data Lab Results 03/02/24 12:41: PT 11.9, INR 1.11 H, Sodium 131 L, Potassium 4.4, Chloride 104, Carbon Dioxide 21 L, Anion Gap 10.4, BUN 11, Creatinine 0.70, Estimated Creat Clear 37, Estimated GFR 80, Est GFR ( Amer) 96, Glucose 94, Calcium 9.3, Magnesium 0.8 L, Total Bilirubin 1.1, AST 60 H, ALT 31, Alkaline Phosphatase 70, Troponin I 0.03, NT-Pro-B Natriuret Pep 7220 H, Total Protein 6.8, Albumin 3.8, Globulin 3.0, Albumin/Globulin Ratio 1.3 03/02/24 13:08: Urine Color Yellow, Urine Appearance Clear, Urine pH 5.5, Ur Specific [place] <= 1.005, Urine Protein Negative, Urine Glucose (UA) Negative, Urine Ketones Negative, Urine Blood Negative, Urine Nitrate Negative, Urine Bilirubin Negative, Urine Urobilinogen 0.2, Ur Leukocyte Esterase Negative, Urine RBC None, Urine WBC 3-5, Ur Squamous Epith Cells 5-10, Urine Bacteria Trace 03/02/24 13:30: WBC 5.5, RBC 2.80 L, Hgb 10.5 L, Hct 31.6 L, MCV 112.7 H, MCH 37.5 H, MCHC 33.2, RDW 15.5, Plt Count 126 L, MPV 8.0, Neut % (Auto) 63.5, Lymph % (Auto) 28.4, [place] % (Auto) 5.6, Eos % (Auto) 2.1, Baso % (Auto) 0.4, Neut # (Auto) 3.5, Lymph # (Auto) 1.6, [place] # (Auto) 0.3, Eos # (Auto) 0.1, Baso # (Auto) 0.0 03/02/24 16:03: Troponin I 0.02 Orders (Tests/Meds): ED MEDICATIONS Generic Name Dose Route Start Last Admin Trade Name Freq PRN Reason Stop Dose Admin Acetaminophen 650 mg 03/02/24 18:09 Acetaminophen 325mg Tab PO 04/01/24 18:08 Q4HP PRN Fever or Mild Pain (1-3) Ceftriaxone Sodium 1 gm/ 50 mls @ 100 mls/hr 05/17/24 16:15 03/02/24 16:45 Sodium Chloride IV 03/12/24 16:14 100 mls/hr Q24H RUBY Administration Diltiazem HCl 100 mg/ Sodium 100 mls @ 10 mls/hr 03/02/24 16:43 03/02/24 22:26 Chloride IV 04/01/24 16:42 10 mg/hr .Q10H RUBY 10 mls/hr Titration Protocol 10 MG/HR Miscellaneous 1 each 03/02/24 22:31 Pharmacy Consult Request NOTAPPLIC 03/02/24 22:32 CONSULT PHARMACY ONE Promethazine HCl 25 mg 03/02/24 18:09 Promethazine Hcl 25mg/Ml 1ml Vial IV 04/01/24 18:08 Q6HP PRN Nausea And Vomiting Simethicone 160 mg 03/02/24 22:30 Simethicone 80mg Chewable Tablet PO 04/01/24 22:29 Q6HP PRN Gas Pain and Discomfort Sodium Chloride 25 ml 03/02/24 18:09 Sodium Chloride 0.9% 25ml Bag IV 04/01/24 18:08 NEEDED PRN for Use with IV Promethazine Discontinued Medications Generic Name Dose Route Start Last Admin Trade Name Freq PRN Reason Stop Dose Admin Diltiazem HCl 10 mg 03/02/24 16:43 03/02/24 17:26 Diltiazem 25mg/5ml Vial IV 03/02/24 16:44 10 mg ONCE ONE Administration Lactated Ringer's 1,000 mls @ 999 mls/hr 03/02/24 12:52 03/02/24 13:02 Lactated Ringer's 1000 Ml Bag IV 03/02/24 13:52 999 mls/hr .Q1H1M ONE Administration Magnesium Sulfate 2 gm in 50 mls @ 50 mls/hr 03/02/24 14:17 03/02/24 14:31 Magnesium Sulfate 2gm/50ml Premix IV 03/02/24 15:16 50 mls/hr ONCE ONE Administration Magnesium Sulfate 2 gm in 50 mls @ 50 mls/hr 03/02/24 16:00 03/02/24 17:26 Magnesium Sulfate 2gm/50ml Premix IV 03/02/24 16:59 50 mls/hr ONCE ONE Administration Iopamidol 70 ml 03/02/24 13:59 03/02/24 14:00 Iopamidol-370 (76%);100ml Bottle IV 03/02/24 14:00 70 ml ONCE ONE Administration Metoprolol Tartrate 5 mg 03/02/24 15:30 03/02/24 15:36 Metoprolol Tartrate 5mg/5ml Vial IV 03/02/24 15:31 5 mg ONCE ONE Administration Sodium Chloride 10 ml 03/02/24 13:59 03/02/24 14:00 Sodium Chloride 0.9% 10ml Syr (Rad Only) IV 03/02/24 14:00 10 ml ONCE ONE Administration Sodium Chloride 50 ml 03/02/24 13:59 03/02/24 14:00 0.9 % Sodium Chloride 50 Ml Vial IV 03/02/24 14:00 50 ml ONCE ONE Administration ORDERS Category Date Time Status CT angio abdomen pelvis Stat Cat Scan 03/02/24 12:[address] head/brain wo con Stat Cat Scan 03/02/24 12:52 Completed CTA Chest [CT angio chest PE protocol] Stat Cat Scan 03/02/24 12:52 Completed Consult to Cardiology [CONS] Routine Cons 03/02/24 17:56 Active BNP [NT Pro Brain Natriuretic Pep.] Stat Lab 03/02/24 12:41 Completed Basic Metabolic Panel AMLAB Lab 03/03/24 06:00 Ordered Basic Metabolic Panel AMLAB Lab 03/04/24 06:00 Ordered Basic Metabolic Panel AMLAB Lab 03/05/24 06:00 Ordered CBC w/Auto Diff [Complete Blood Count Auto Diff] Stat Lab 03/02/24 13:30 Completed CMP [Comprehensive Metabolic Panel] Stat Lab 03/02/24 12:41 Completed Complete Blood Count Auto Diff AMLAB Lab 03/03/24 06:00 Ordered Complete Blood Count Auto Diff AMLAB Lab 03/04/24 06:00 Ordered Complete Blood Count Auto Diff AMLAB Lab 03/05/24 06:00 Ordered MAG [Magnesium] Stat Lab 03/02/24 12:41 Completed PT INR [Prothrombin Time INR] Stat Lab 03/02/24 12:41 Completed Troponin I Q3H Lab 03/02/24 12:41 Completed Troponin I Q3H Lab 03/02/24 16:03 Completed Urinalysis and Microscopic Stat Lab 03/02/24 13:08 Completed Urine Culture Stat Micro 03/02/24 13:15 Received Medical Decision Narrative: Patient with history and exam per above presenting for evaluation of multiple complaints, including tachycardia, dysuria, suprapubic pain, resolved headache Diagnoses considered include pulmonary embolism, intracranial hemorrhage, volume overload, electrolyte abnormality, ACS, other dysrhythmia. ED workup and treatment included: CBC, CMP, PT, INR, mag, troponins, CT head without contrast, CTA chest, CTA abdomen pelvis, LR initially ordered however discontinued after approximately 300 cc, 2 doses of 2 mg magnesium, metoprolol 5 mg x 1 EKG was independently visualized and interpreted by me significant for narrow complex tachycardia, normal axis, qtc 496 Labs were independently interpreted by me, significant for hypomagnesemia, BNP 7220, hemoglobin 10.5, other labs pending Imaging pending at this time. Patient's dysrhythmia at this time is thought to be secondary to electrolyte abnormalities, in the setting of recent diuresis, with associated ongoing third spacing, known history of atrial fibrillation. She remains minimally symptomatic from the dysrhythmia itself, as well as hemodynamically stable, normotensive, thus will elect to address underlying electrolyte abnormalities prior to consideration of calcium channel melinda, additional dose of metoprolol, or consideration of cardioversion. CT imaging pending at this time, which will additionally help to guide most appropriate management when resulted. Care was transferred to incoming physician. DO [place]: On my assessment of the patient, she remains in atrial flutter with rapid ventricular response. Given this, she was given a diltiazem bolus as well as put on a diltiazem drip. Magnesium repletion is ongoing for hypomagnesemia. She also has concern for CHF exacerbation with worsening bilateral chronic pleural effusions as well as elevated BNP. She also has urinary tract infection, for which she is receiving IV antibiotics. Given her complicated presentation with CHF, atrial flutter with RVR, hypomagnesemia, and UTI, I feel she would benefit from admission for further evaluation and management. I had an interactive discussion with the hospitalist who admitted the patient in stable condition. Critical Care <Elias Rodríguez MD - Last Filed: 03/02/24 17:11> Critical Care Time Critical Care Time: No <Bonita Stubbs DO - Last Filed: 03/02/24 22:54> Critical Care Time Critical Care Time: Yes Attestation: On 03/02/24, the high probability of a clinically significant, sudden or life threatening deterioration of the following system(s) required my full and direct attention, intervention and personal management. The time I documented below is in addition to time spent performing reported procedures but includes the following listed in this critical care notation. Total Time Total Critical Care Time: 30
--- NOTE | 2024-03-02 12:52 | CT_ITS ---
FINAL REPORT CLINICAL HISTORY: recent sdh, HALL COMPARISON: 01/20/2024 FINDINGS: Axial images of the head were obtained without contrast. Coronal and sagittal reformatted images were also obtained. This study was performed with techniques to keep radiation doses as low as reasonably achievable (ALARA). Individualized dose reduction techniques using automated exposure control or adjustment of mA and/or kV according to the patient's size were employed. There is generalized age-appropriate atrophy. Periventricular low-attenuation areas are seen consistent with moderate chronic ischemic changes. Since the prior CT of January 19 there has been interval resolution of the left subdural hemorrhage. There has also been interval improvement in the contusion involving the left operculum with a small amount of residual edema. No new hemorrhages identified. There is no evidence of acute infarct. There is no evidence of shift of the midline structures. No skull abnormality is seen on the bone window images. There is partial opacification of the right sphenoid sinus, similar to that seen on the prior exam. IMPRESSION: Atrophy and moderate periventricular chronic ischemic changes. Interval improvement in the contusion involving the left operculum with residual edema, and interval resolution of the left subdural hemorrhage seen on the films of January 19. Reviewed, Interpreted and Dictated by Ramón Veliz III, MD Transcribed by Bette Giang Authenticated and [facility]
--- NOTE | 2024-03-02 12:52 | CT_ITS ---
FINAL REPORT TECHNIQUE: Then section axial CT images of the chest were obtained with contrast. Three-D reformatted images were also obtained.This study was performed with techniques to keep radiation doses as low as reasonably achievable (ALARA). Individualized dose reduction techniques using automated exposure control or adjustment of mA and/or kV according to the patient''s size were employed. CLINICAL HISTORY: tachycardia, soa COMPARISON: Prior chest CT dated 12/30/2023 FINDINGS: There is no evidence of pulmonary embolism. There is no evidence of thoracic aortic aneurysm or dissection. The patient has undergone a prior midline sternotomy. Cardiomegaly is present. There is no evidence of mediastinal or hilar mass or adenopathy. Multiple borderline in size mediastinal nodes are present, stable since the prior exam. Bilateral left greater than right pleural effusions are present, somewhat larger than seen on the prior exam. Mild changes of atelectasis and emphysema are present. No localized inflammatory process is seen within the lungs. Limited images of the upper abdomen are unremarkable. IMPRESSION: No evidence of pulmonary embolism. No evidence of thoracic aortic aneurysm or dissection. There has been slight enlargement of the bilateral pleural effusions as described. Reviewed, Interpreted and Dictated by Ramón Veliz III, MD Transcribed by Bette Giang Authenticated and [facility]
--- NOTE | 2024-03-02 12:54 | CT_ITS ---
FINAL REPORT TECHNIQUE: Pre-and postcontrast images of the abdomen and pelvis were performed by computed tomography. Extensive 3-D reconstruction images were performed. A CTA was performed. This study was performed with techniques to keep radiation doses as low as reasonably achievable (ALARA). Individualized dose reduction techniques using automated exposure control or adjustment of mA and/or kV according to the patient's size were employed. CLINICAL HISTORY: abdominal pain, recnet trauma COMPARISON: None FINDINGS: CT ABDOMEN AND PELVIS: There is fatty infiltration of the liver. There is a somewhat lobular appearance of the liver, a finding of uncertain significance but cirrhosis is not excluded. There are several probable splenic cysts present. The gallbladder has been surgically resected, then there is mild biliary ductal dilatation, likely post cholecystectomy change. There are multiple bilateral renal masses present, most of which are consistent with simple cysts. However there are several bilateral renal masses that do not appear to be simple cysts, favor hemorrhagic or mildly complicated cysts. A right hip arthroplasty has been performed which produces streak artifact. There is a small amount of free fluid in the pelvis. Colonic diverticula are present. CTA ABDOMEN AND PELVIS: Diffuse vascular calcifications are noted in the abdominal aorta and iliac vessels. 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 There is probably 50% stenosis at the origin of the superior mesenteric artery as well. The ALINE is patent. There is heavily calcified plaque present at the renal artery origins bilaterally, producing approximately 50% bilateral stenosis. There is no significant iliac artery stenosis. IMPRESSION: There are multiple foci of moderate stenosis in the visceral branches of the aorta, and catheter angiography might be helpful for further evaluation as clinically indicated. The liver is somewhat lobular, and cirrhosis is not excluded. Reviewed, Interpreted and Dictated by Ramón Veliz III, MD Transcribed by Bette Giang Authenticated and [facility]
[2024-03-02] MEDS: LACTATED RINGERS 1000ML 1,000 ML 999 ML IV (13:02)
[2024-03-02 13:16] LABS: Microscopic, Urine URINE MICROSCOPIC (MICROSCOPIC)
[2024-03-02 13:35] LABS: Chloride 104 mmol/L (98-107); Potassium 4.4 mmoL/L (3.5-5.1); Sodium 131 mmol/L (136-145)
[2024-03-02 13:37] LABS: Alanine Aminotransferase 31 U/L (12-78); Aspartate Amino Transferase 60 U/L (14-36); Blood Urea Nitrogen 11 mg/dl (7-17); Creatinine Clearance Estimated 37 mL/min (50-200); Estimated Glomerular Filt Rate 80 ml/min (>60); GFR (African American) 96 ML/MIN (>60)
[2024-03-02 13:37] LABS: Basophils % 0.4 % (0.1-2.0); Eosinophils # 0.1 K/mm3 (0.0-0.4); Eosinophils % 2.1 % (0.1-12.0); Hematocrit 31.6 % (37.0-47.0); Hemoglobin 10.5 g/dL (12.2-16.2); Lymphocytes # 1.6 K/mm3 (0.7-4.5); Lymphocytes % 28.4 % (10-50); Mean Corpuscular HGB Conc 33.2 g/dL (31.8-35.4); Mean Corpuscular Hemoglobin 37.5 pg (27.0-31.2); Mean Corpuscular Volume 112.7 fl (81-99); Monocytes # 0.3 K/mm3 (0.1-1.0); Monocytes % 5.6 % (1.7-9.3); Neutrophils # 3.5 K/mm3 (1.8-7.8); Neutrophils % 63.5 % (37.0-80.0); Platelet Count 126 K/mm3 (142-424); Red Cell Distribution Width 15.5 % (11.5-17.5); White Blood Count 5.5 K/mm3 (4.8-10.8)
[2024-03-02 13:38] LABS: Albumin Level 3.8 g/dl (3.5-5.0); Albumin/Globulin Ratio 1.3 (1.1-1.8); Alkaline Phosphatase 70 U/L (38-126); Anion Gap 10.4 mEq/L (5-15); Bilirubin,Total 1.1 mg/dl (0.2-1.3); Calcium 9.3 mg/dl (8.4-10.2); Carbon Dioxide 21 mmol/L (22.0-30.0); Glucose 94 mg/dl (74-100); Total Protein,Serum 6.8 g/dl (6.3-8.2)
[2024-03-02 13:44] LABS: INR 1.11 (0.9-1.1); Prothrombin Time 11.9 seconds (10.1-12.5)
[2024-03-02 13:47] LABS: NT Pro Brain Natriuretic Pep. 7220 pg/mL (0-450)
[2024-03-02 13:50] LABS: Troponin I 0.03 ng/ml (0.00-0.034)
[2024-03-02 13:50] LABS: Appearance,Urine CLEAR (Clear); Bilirubin,Urine Negative (Negative); Blood, Urine Negative (Negative); Color,Urine YELLOW (Yellow); Glucose,Urine (UA) Negative (Negative); Ketones,Urine Negative (Negative); Leukocyte Esterase,Urine Negative (Negative); Nitrate,Urine Negative (Negative); PH,Urine 5.5 (5.0-8.5); Protein,Urine Negative (Negative); Specific Gravity, Urine <= 1.005 (1.005-1.030); Urobilinogen,Urine 0.2 EU/dl (0.2)
[2024-03-02] MEDS: IOPAMIDOL-370 (76%);100ML BOTTLE 70 ML IV (14:00)
[2024-03-02] MEDS: SODIUM CHLORIDE 0.9% 10ML SYR (RAD ONLY) 10 ML IV (14:00)
[2024-03-02] MEDS: 0.9 % SODIUM CHLORIDE 50 ML VIAL IV (14:00)
[2024-03-02 14:01] LABS: Magnesium 0.8 mg/dl (1.6-2.3)
--- NOTE | 2024-03-02 14:02 | PC.NURSE ---
Notified of critical lab value Mag 0.8.
[2024-03-02] MEDS: MAGNESIUM SULFATE IN WATER 2 GM/50 ML PIGGYBACK IV ×2 (14:31→17:26)
--- NOTE | 2024-03-02 15:03 | PC.NURSE ---
assisted pt to BSC. output was unmeasured. Pt asked about test results , I reassured her she would be told as soon as they came back. Provided pt with warm blanket
[2024-03-02] MEDS: METOPROLOL TARTRATE 5MG/5ML VIAL 5 MG IV (15:36)
[2024-03-02 15:50] LABS: Bacteria,Urine Trace /lpf
[2024-03-02] MEDS: CEFTRIAXONE 1 GM 1 GM in 0.9 % SODIUM CHLORIDE 50 ML IV (16:45)
[2024-03-02 16:57] LABS: Troponin I 0.02 ng/ml (0.00-0.034)
--- NOTE | 2024-03-02 17:10 | PC.NURSE ---
Obtained dinner tray for pt
[2024-03-02] MEDS: dilTIAZem 25MG/5ML VIAL 10 MG IV (17:26)
--- NOTE | 2024-03-02 17:30 | PC.NURSE ---
Dr. Stubbs s/w Dr. Serrato for admission
--- NOTE | 2024-03-02 17:45 | PC.NURSE ---
Dr. Stubbs s/w Dr. Sky for cardiac consult
--- OUTSIDE RECORDS SUMMARY | 2024-03-02 18:04 | XMS_ITS | Continuity of Care Document ---
Author Name Unknown Address [address] [place] [phone] Organization [facility] Phone Care Team Providers Care Retail Experience Specialist Name Role Phone DOMINGO ANNE Unavailable DOMINGO ANNE Primary Care DOMINGO ANNE Admitting DOMINGO ANNE Primary Attending ALLERGIES AND ADVERSE REACTIONS ALLERGIES AND ADVERSE REACTIONS Code System Allergy Substance Adverse Reaction Date Reaction (Severity) Comment Status Reported By Updated By 7431 RXNorm MACRODANTIN Rash Adverse reaction to substance mouth swells active [id number] on January 20, 2024 8:42:51 PM [facility] 7052 RXNorm MORPHINE Adverse reaction to substance pain active [id number] on January 20, 2024 8:42:51 PM [facility] [...] 100: UA AND MICRO/CULT IF INDICATED (LOINC: 79451-5) ORDER DATE: February 03, 2024 11:25:00 AM UTC Specimen Source: URINE Specimen Type: Urine specime n PERFORMING LAB: [address] [id number] Result Comment: Final Result Date: February 03, [...] 03, 2024 11:51:00 AM UTC (TECH: LT) 25384-8 Bilirubin.total [Mass/volume] in Urine by Automated test strip N NEGATIVE NEGATIVE January 11:51:00 AM UTC (TECH: LT) 5797-6 Ketones [Mass/volume ] in Urine by Test strip N NEGATIVE NEGATIVE February 03, 2024 11:51:00 AM UTC (TECH: LT) 2965-2 Specific gravity of Urine N 1.015 1.005 - 1.035 February 03, 2024 11:51:00 AM UTC (TECH: LT) 19286-6 Erythrocytes [#/volu me] in Urine by Automated test strip N NEGATIVE NEGATIVE February 03, 2024 11:51:00 AM UTC (TECH: LT) 26531-7 pH of Urine by Automated test strip N 6.00 5.0 - 7.5 February 02 024 11:51:00 AM UTC (TECH: LT) 82923-5 Protein [Presence] i n Urine by Test strip N 30 (1+) mg/dL NEGATIVE February 02 24 11:51:00 AM UTC (TECH: LT) 33729-8 Urobilinogen [Mass/volume] in Urine by Automated test strip N NORM NORMAL January 11:51:00 AM UTC (TECH: LT) 74269-1 Nitrate [Presence] i n Urine N NEGATIVE NEGATIVE February 03, 2024 11:51:00 AM UTC (TECH: LT) 87333-0 Leukocytes [#/volume ] in Urine by Test strip N TRACE (25) /mcL NEGATIVE February 03, 2024 11:51:00 AM UTC (TECH: LT) 23336-3 Other elements in Ur ine sediment N CONTAMINATED February 03, 2024 11:51:00 AM UTC (TECH: LT) 30265-9 Microscopic observat ion [Identifier] in Urine sediment by Light microscopy N YES February 03, 2024 11:51:00 AM UTC (TECH: LT) 81774-2 Erythrocytes [#/area ] in Urine sediment by Microscopy high power field N NONE SEEN 0-3 February 03, 2024 11:51:00 AM UTC (TECH: LT) 5821-4 Leukocytes [#/area] in Urine sediment by Microscopy high power field N 0-3 NONE SEEN February 03, 2024 11:51:00 AM UTC (TECH: LT) 09813-8 Epithelial cells.squamous [#/area] in Urine sediment by Microscopy high power field 10-20 NONE SEEN February 03, 2024 11:51:00 AM UTC (TECH: LT) 5769-5 Bacteria [#/area] in Urine sediment by Microscopy high power field N TRACE NONE SEEN February 03, 2024 11:51:00 AM UTC (TECH: LT) 86257-4 Hyaline casts [Presence] in Urine sediment by [...] Description Effective Dates Offered Cessation Comment UpdatedBy [id number] Historical Tobacco smoking status Never Smoked Not Applicable [id number] on April 07, 2016 4:52:02 AM [place] [id number] Historical Tobacco smoking status Former Smoker Yes [id number] on June 09, 2015 6:14:54 PM [place] [...] R30.9 Admission February 03, 2024 11:24:00 AM [place] [address] [id number] Discharge February 03, 2024 12:24:00 PM [place] D ISCHARGED TO HOME OR SELF CARE ENCOUNTER DIAGNOSES Notes information is not juan manuel ilable. Code System Diagnosis Onset Date Diagnosis information is not available. ABSTRACT DIAGNOSES Code System Diagnosis Updated By R30.9 ICD10 PAINFUL MICTURITION, UNSPECI FIED [id number] on February 06, 2024 3:31:43 PM [facility] R30.9 ICD10 PAINFUL MICTURITION, UNSPECI FIED [id number] on February 06, 2024 3:31:43 PM [facility] CARE TEAM Care Retail Experience Specialist Role DOMINGO ANNE Referring DOMINGO ANNE Primary Care DOMINGO ANNE Admitting DOMINGO ANNE Primary Attending CARE TEAM CARE [place] Role on Team Status Start Date End Date Update d By OMID LANE MD PCP normal February 03, 2024 11:38:06 AM [facility] February 03, 2024 4:00:00 AM [facility] [id number] on February 03, 2024 11:38:06 AM [facility] OMID LANE MD Referring normal February 03, 2024 11:38:06 AM [facility] February 03, 2024 4:00:00 AM [facility] [id number] on February 03, 2024 11:38:06 AM [facility] OMID LANE MD Attending normal February 03, 2024 11:38:05 AM [facility] February 03, 2024 4:00:00 AM [facility] [id number] on February 03, 2024 11:38:06 AM [facility] OMID LANE MD Admitting normal February 03, 2024 11:38:05 AM [facility] February 03, 2024 4:00:00 AM [facility] [id number] on February 03, 2024 11:38:06 AM [facility] BACILIO Casas MD PHY PCP normal February 03, 2024 11:25:13 AM [facility] February 03, 2024 11:38:06 AM [facility] [id number] on February 03, 2024 11:38:06 AM [facility]
--- OUTSIDE RECORDS SUMMARY | 2024-03-02 18:04 | XMS_ITS | Continuity of Care Document ---
Author Name Unknown Address [address] [place], [place] [id number] Organization [facility] Phone Care Team Providers Care Electric Razor Mechanic Name Role Phone DOMINGO ANNE Primary Attending DOMINGO ANNE Admitting DOMINGO ANNE Primary Care DOMINGO ANNE Unavailable ALLERGIES AND ADVERSE REACTIONS ALLERGIES AND ADVERSE REACTIONS Code System Allergy Substance Adverse Reaction Date Reaction (Severity) Comment Status Reported [place] 7462 RXNorm MACRODANTIN Rash Adverse reaction to substance mouth swells active [id number] on January 20, 2024 8:42:[address] [facility] 7052 RXNorm MORPHINE Adverse reaction to substance pain active [id number] on January 20, 2024 8:42:[address] [facility] FAMILY HISTORY RELATION: Father Status: [...] 100: UA AND MICRO/CULT IF INDICATED (LOINC: 63941-2) ORDER DATE: February 22, 2024 11:49:00 AM UTC Specimen Source: URINE Specimen Type: Urine specime n PERFORMING LAB: [facility] [address] [facility] [id number] Result Comment: Final Result Date: February 22, [...] February 21 12:30:00 PM UTC (TECH: MRB) 04289-5 Bilirubin.total [Mass/volume] in Urine by Automated test strip N NEGATIVE NEGATIVE February 21 024 12:30:00 PM UTC (TECH: MRB) 5797-6 Ketones [Mass/volume ] in Urine by Test strip N NEGATIVE NEGATIVE February 21 12:30:00 PM UTC (TECH: MRB) 2965-2 Specific gravity of Urine N 1.010 1.005 - 1.035 February 22, 2024 12:30:00 PM UTC (TECH: MRB) 07404-9 Erythrocytes [#/volu me] in Urine by Automated test strip N NEGATIVE NEGATIVE February 22, 2024 12:30:00 PM UTC (TECH: MRB) 07872-2 pH of Urine by Automated test strip N 6.00 5.0 - 7.5 February 22, 2024 12:30:00 PM UTC (TECH: MRB) 09213-9 Protein [Presence] i n Urine by Test strip N 100 (2+) mg/dL NEGATIVE February 22, 2024 12:30:00 PM UTC (TECH: MRB) 39169-1 Urobilinogen [Mass/volume] in Urine by Automated test strip N NORM NORMAL February 21, 2 024 12:30:00 PM UTC (TECH: MRB) 09932-1 Nitrate [Presence] i n Urine N NEGATIVE NEGATIVE February 22, 2024 12:30:00 PM UTC (TECH: MRB) 48760-6 Leukocytes [#/volume ] in Urine by Test strip N TRACE (25) /mcL NEGATIVE February 21 12:30:00 PM UTC (TECH: MRB) 27935-5 Other elements in Ur ine sediment N CONTAMINATED February 22, 2024 12:30:00 PM UTC (TECH: MRB) 90416-4 Microscopic observat ion [Identifier] in Urine sediment by Light microscopy N YES February 22, 2024 12:30:00 PM UTC (TECH: MRB) 74248-0 Erythrocytes [#/area ] in Urine sediment by Microscopy high power field N NONE SEEN 0-3 February 22, 2024 12:30:00 PM UTC (TECH: MRB) 5821-4 Leukocytes [#/area] in Urine sediment by Microscopy high power field N 1-5 NONE SEEN February 22, 2024 12:30:00 PM UTC (TECH: MRB) 38045-2 Epithelial cells.squamous [#/area] in Urine sediment by Microscopy high power field >30 NONE SEEN February 22, 2024 12:30:00 PM UTC (TECH: MRB) 5769-5 Bacteria [#/area] in Urine sediment by Microscopy high power field N 1+ NONE SEEN February 22, 2024 12:30:00 PM UTC (TECH: MRB) 82821-1 Hyaline casts [Presence] in Urine sediment by Light microscopy N 1-5 NONE SEEN February 22, 2024 12:30:00 PM UTC (TECH: MRB) 32178-8 Mucus [#/area] in Ur ine sediment by [...] Description Effective Dates Offered Cessation Comment UpdatedBy [id number] Historical Tobacco smoking status Never Smoked Not Applicable [id number] on April 07, 2016 4:52:[address] [facility] [id number] Historical Tobacco smoking status Former Smoker Yes [id number] on June 09, 2015 6:14:[address] [facility] SOCIAL HISTORY - Gender Sex: [...] N30.0 Admission February 22, 2024 11:48:[address] [address] Discharge February 22, 2024 12:48:[address] [facility] DISC HARGED TO HOME OR SELF CARE ENCOUNTER DIAGNOSES Notes information is not juan manuel ilable. Code System Diagnosis Onset Date Diagnosis information is not available. ABSTRACT DIAGNOSES Code System Diagnosis Updated By Abstract Diagnosis informati on is not available. CARE TEAM Care Electric Razor Mechanic Role DOMINGO ANNE Primary Attending DOMINGO ANNE Admitting DOMINGO ANNE Primary Care DOMINGO ANNE Referring CARE TEAM CARE quality assurance representative Role on Team Status Start Date End Date Update d By OMID LANE MD PCP normal February 21 4:00:[address] [facility] February 22, 2024 12:48:[address] [facility] [id number] on February 22, 2024 5:12:[address] [facility] OMID LANE MD Referring normal February 21 4:00:[address] [facility] February 22, 2024 12:48:[address] [facility] [id number] on February 22, 2024 5:12:[address] [facility] OMID LANE MD Attending normal February 21 4:00:[address] [facility] February 22, 2024 12:48:[address] [facility] [id number] on February 22, 2024 5:12:[address] [facility] OMID LANE MD Admitting normal February 21 4:00:[address] [facility] February 22, 2024 12:48:[address] [facility] [id number] on February 22, 2024 5:12:[address] [facility] ABBY RAY APRN PCP normal February 22, 2024 11:48:[address] [facility] February 22, 2024 4:00:[address] [facility] [id number] on February 22, 2024 5:12:[address] [facility]
--- OUTSIDE RECORDS SUMMARY | 2024-03-02 18:04 | XMS_ITS | Continuity of Care Document ---
Author Name Unknown Address [address], [place] [id number] Organization [facility] Phone Care Team Providers Care Tricot Knitting Machine Operator Name Role Phone CORY MORA Unavailable [phone] CORY MORA Primary Care [phone] CORY MORA Primary Attending CORY MORA Admitting ALLERGIES AND ADVERSE REACTIONS ALLERGIES AND ADVERSE REACTIONS Code System Allergy Substance Adverse Reaction Date Reaction (Severity) Comment Status Reported By Updated By 7454 RXNorm MACRODANTIN Rash Adverse reaction to substance mouth swells active [id number] on January 20, 2024 8:42:51 PM [facility] 7052 RXNorm MORPHINE Adverse reaction to substance pain active [id number] on January 20, 2024 8:42:51 PM [facility] FAMILY HISTORY RELATION: Father Status: Cause of [...] December 23 0 LABORATORY RESULTS ORDER 100: UA AND MICRO/CULT IF INDICATED (LOINC: 49731-9) ORDER DATE: February 14, 2024 6:11:00 PM UTC Specimen Source: URINE Specimen Type: Urine specime n PERFORMING LAB: [address] [id number] Result Comment: Final Result Date: February 14, 2024 6:27:00 PM UTC (TECH: LT) LOINC TEST FLAG RESULT REFERENCE RANGE UPDA JACEK BY 5778-6 Color of Urine N yellow YELLOW February 14, 2024 6:27:00 PM UTC (TECH: LT) 5767-9 Appearance of Urine N clear CLEAR February 14, 2024 6:27:00 PM UTC (TECH: LT) 5792-7 Glucose [Mass/volume ] in Urine by Test strip N NORM NORMAL February 14, 2024 6:27:00 PM UTC (TECH: LT) 15339-3 Bilirubin.total [Mass/volume] in Urine by Automated test strip N NEGATIVE NEGATIVE January 6:27:00 PM UTC (TECH: LT) 5797-6 Ketones [Mass/volume ] in Urine by Test strip N NEGATIVE NEGATIVE February 14, 2024 6:27:00 PM UTC (TECH: LT) 2965-2 Specific gravity of Urine N 1.015 1.005 - 1.035 February 14, 2024 6:27:00 PM UTC (TECH: LT) 74756-3 Erythrocytes [#/volu me] in Urine by Automated test strip N NEGATIVE NEGATIVE February 14, 2024 6:27:00 PM UTC (TECH: LT) 11497-3 pH of Urine by Automated test strip N 6.00 5.0 - 7.5 February 13 024 6:27:00 PM UTC (TECH: LT) 44323-1 Protein [Presence] i n Urine by Test strip N 30 (1+) mg/dL NEGATIVE February 13 24 6:27:00 PM UTC (TECH: LT) 91406-2 Urobilinogen [Mass/volume] in Urine by Automated test strip N NORM NORMAL January 6:27:00 PM UTC (TECH: LT) 06015-5 Nitrate [Presence] i n Urine N NEGATIVE NEGATIVE February 14, 2024 6:27:00 PM UTC (TECH: LT) 66141-0 Leukocytes [#/volume ] in Urine by Test strip N TRACE (25) /mcL NEGATIVE February 14, 2024 6:27:00 PM UTC (TECH: LT) 27714-7 Other elements in Ur ine sediment N CUL ORD W/UA February 14, 2024 6:27:00 PM UTC (TECH: LT) 73524-0 Microscopic observat ion [Identifier] in Urine sediment by Light microscopy N YES February 14, 2024 6:27:00 PM UTC (TECH: LT) 82870-8 Erythrocytes [#/area ] in Urine sediment by Microscopy high power field N NONE SEEN 0-3 February 14, 2024 6:27:00 PM UTC (TECH: LT) 5821-4 Leukocytes [#/area] in Urine sediment by Microscopy high power field N 0-3 NONE SEEN February 14, 2024 6:27:00 PM UTC (TECH: LT) 88705-4 Epithelial cells.squamous [#/area] in Urine sediment by Microscopy high power field N 1-5 NONE SEEN February 14, 2024 6:27:00 PM UTC (TECH: LT) 5769-5 Bacteria [#/area] in Urine sediment by Microscopy high power field N TRACE NONE SEEN February 14, 2024 6:27:00 PM UTC (TECH: LT) 01791-0 Hyaline casts [Presence] in Urine sediment by Light microscopy N 5-10 NONE SEEN February 14, 2024 6:27:00 PM UTC (TECH: LT) 26518-3 Fine Granular Casts [Presence] in Urine sediment by Light microscopy N OCCASIONAL NONE SEEN February 14, 2024 6:27:00 PM UTC (TECH: LT) 18370-5 Waxy casts [Presence ] in Urine sediment by Light microscopy N RARE NONE SEEN February 14, 2024 6:27:00 PM UTC (TECH: LT) LABORATORY NARRATIVE RESULTS Information [...] Priority Start Date Ordering Physician Updated By 630-4 LOINC Bacteria identified in Urine by Culture ONE TIME 0 Routine February 14, 2024 6:10:00 PM [facility] PATIENT [id number] on February 14, 2024 6:11:00 PM [facility] SCHEDULED PROCEDURES Code System Description Status Scheduled Date Upd ated By Patient scheduled procedure information is not available. MEDICATIONS HOME MEDICATIONS Status RXNORM NDC Medication [...] Description Effective Dates Offered Cessation Comment UpdatedBy [id number] Historical Tobacco smoking status Never Smoked Not Applicable [id number] on April 07, 2016 4:52:02 AM [facility] [id number] Historical Tobacco smoking status Former Smoker Yes [id number] on June 09, 2015 6:14:54 PM [facility] SOCIAL HISTORY - Gender Sex: Female SOCIAL [...] available. ENCOUNTERS ENCOUNTER INFORMATION Reason for Visit BACK PAIN Admission February 14, 2024 6:10:[address] [id number] Discharge February 14, 2024 7:10:00 PM [facility] DI SCHARGED TO HOME OR SELF CARE ENCOUNTER DIAGNOSES Notes information is not juan manuel ilable. Code System Diagnosis Onset Date Diagnosis information is not available. ABSTRACT DIAGNOSES Code System Diagnosis Updated By Abstract Diagnosis informati on is not available. CARE TEAM Care T[employer]ot Knitting Machine Operator Role CORY MORA Referring CORY MORA Primary Care CORY MORA Primary Attending CORY MORA Admitting CARE TEAM CARE line service person Role on Team Status Start Date End Date Update d By ABBY RAY APRN PCP normal February 14, 2024 4:00:00 AM [facility] February 14, 2024 7:10:00 PM [facility] [id number] on February 14, 2024 7:22:53 PM [facility] ABBY RAY APRN Referring normal February 14, 2024 4:00:00 AM [facility] February 14, 2024 7:10:00 PM [facility] [id number] on February 14, 2024 7:22:53 PM [facility] ABBY RAY APRN Attending normal February 14, 2024 4:00:00 AM [facility] February 14, 2024 7:10:00 PM [facility] [id number] on February 14, 2024 7:22:53 PM [facility] ABBY RAY APRN Admitting normal February 14, 2024 4:00:00 AM [facility] February 14, 2024 7:10:00 PM [facility] [id number] on February 14, 2024 7:22:53 PM [facility] OMID LANE MD PCP normal February 14, 2024 6:10:54 PM [facility] February 14, 2024 4:00:00 AM [facility] [id number] on February 14, 2024 7:22:53 PM [facility]
--- OUTSIDE RECORDS SUMMARY | 2024-03-02 18:04 | XMS_ITS | Continuity of Care Document ---
Author Name Unknown Address [address] [place] [address] [id number] [facility] Phone Care Team Providers Care Oracle Hyperion Consultant Name Role Phone NILA ABREU Primary Attending NILA ABREU Surgeon NILA ABREU Admitting KEVIN RIBERA Primary Care NILA ABREU Unavailable ALLERGIES AND ADVERSE REACTIONS ALLERGIES AND ADVERSE REACTIONS Code System Allergy Substance Adverse Reaction Date Reaction (Severity) Comment Status Reported By Updated By 7454 RXNorm MACRODANTIN Rash Adverse reaction to substance mouth swells active [id number] on January 20, 2024 8:42:51 PM [facility] 7052 RXNorm MORPHINE Adverse reaction to substance pain active [id number] on January 20, 2024 8:42:51 PM [facility] FAMILY HISTORY RELATION: Father Status: Cause [...] : December 23 0 LABORATORY RESULTS ORDER 500: PT PROTHROMBIN TI ME W INR (LOINC: 90348-7) ORDER DATE: January 20, 2024 9:33:00 PM UTC Specimen Source: Plasma Specimen Type: Plasma specim en PERFORMING LAB: [address] [id number] Result Comment: Final Result Date: January 20, 2024 9:52:00 PM UTC (TECH: ParaShoot) LOINC TEST [place] [address]-5 INR in Platelet poor plasma or blood by Coagulation assay H 17.8 seconds 9.1 seconds - 12.0 seconds January 20, 2024 9:52:00 PM UTC (TECH: Para[employer]) 6301-6 INR in Platelet poor plasma by Coagulation assay H 1.66 0.9 - 1.1 January 20, 2024 9:52:00 PM UTC (TECH: ParaShoot) ORDER 600: CBC AUTO W DIFF ( LOINC: 10785-1) ORDER DATE: January 20, 2024 9:33:00 PM UTC Specimen Source: Whole Blood Specimen Type: Whole blood s ample PERFORMING LAB: [address] [id number] Result Comment: Final Result Date: January 20, 2024 9:48:00 PM UTC (TECH: [employer]) LOINC TEST FLAG RESULT REFERENCE RANGE UPDA JACEK BY 6690-2 Leukocytes [#/volume] in Blood by Automated count N 8.6 10^3/uL 4.5 10^3/uL - 11.5 10^3/uL January 20, 2024 9:48:00 PM UTC (TECH: [employer]) 789-8 Erythrocytes [#/volume] in Blood by Automated count L 3.23 10^6/uL 4.25 10^6/uL - 5.57 10^6/uL January 20, 2024 9:48:00 PM UTC (TECH: [employer]) 718-7 Hemoglobin [Mass/volume] in Blood L 11.7 g/dL 12.0 g/dL - 15.7 g/dL January 20, 2024 9:48:00 PM UTC (TECH: ParaShoot) 97914-4 Hematocrit [Volume Fraction] of Blood L 32.7 % 36.0 % - 47.0 % January 20, 2024 9:48:00 PM UTC (TECH: [employer]) 787-2 Erythrocyte mean corpuscular volume [Entitic volume] by Automated count H 101.2 fl 80 fl - 95 fl January 20, 2024 9:48:00 PM UTC (TECH: Para[employer]) 10436-2 Erythrocyte mean corpuscular hemoglobin [Entitic mass] in Blood from Fetus by Automated count H 36.2 pg 27.0 pg - 34.0 pg January 20, 2024 9:48:00 PM UTC (TECH: Para[employer]) 01682-0 Erythrocyte mean corpuscular hemoglobin concentration [Mass/volume] in Blood from Fetus by Automated count N 35.8 g/dL 32.0 g/dL - 36.0 g/dL January 20, 2024 9:48:00 PM UTC (TECH: Para[employer]) 57509-4 Platelets [#/volume] in Blood L 108 10^3/uL 150 10^3/uL - 450 10^3/uL January 20, 2024 9:48:00 PM UTC (TECH: Para[employer]oot) 96085-3 Erythrocyte distribution width [Ratio] N 13.9 % 12.3 % - 15.1 % January 20, 2024 9:48:00 PM UTC (TECH: Para[employer]) 97641-1 Platelet mean volume [Entitic volume] in Blood by Automated count H 11.6 fl 7.4 fl - 10.4 fl January 20, 2024 9:48:00 PM UTC (TECH: Para[employer]) 45023-6 Granulocytes/100 leukocytes in Blood by Automated count H 82.8 % 40 % - 75 % January 20, 2024 9:48:00 PM UTC (TECH: [employer]) 736-9 Lymphocytes/100 leukocytes in Blood by Automated count L 7.1 % 15 % - 57 % January 20, 2024 9:48:00 PM UTC (TECH: [employer]) 5905-5 Monocytes/100 leukocytes in Blood by Automated count N 6.1 % 4.0 % - 12.0 % January 20, 2024 9:48:00 PM UTC (TECH: [employer]) 713-8 Eosinophils/100 leukocytes in Blood by Automated count N 0.0 % 0.0 % - 4.0 % January 20, 2024 9:48:00 PM UTC (TECH: KSM) 706-2 Basophils/100 leukocytes in Blood by Automated count N 0.2 % 0.0 % - 1.0 % January 20, 2024 9:48:00 PM UTC (TECH: KSM) 76903-8 Immature granulocytes [#/volume] in Blood H 3.8 % 0.0 % - 0.8 % January 19 9:48:00 PM UTC (TECH: KSM) 61060-6 Granulocytes [#/volume] in Blood by Automated count N 7.15 10^3/uL January 20, 2024 9:48:00 PM UTC (TECH: KSM) 731-0 Lymphocytes [#/volume] in Blood by Automated count N 0.61 10^3/uL January 20, 2024 9:48:00 PM UTC (TECH: KSM) 742-7 Monocytes [#/volume] in Blood by Automated count N 0.53 10^3/uL January 20, 2024 9:48:00 PM UTC (TECH: KSM) 711-2 Eosinophils [#/volume] in Blood by Automated count N 0.00 10^3/uL January 20, 2024 9:48:00 PM UTC (TECH: KSM) 704-7 Basophils [#/volume] in Blood by Automated count N 0.02 10^3/uL January 20, 2024 9:48:00 PM UTC (TECH: KSM) 19030-8 Immature granulocytes [#/volume] in Blood N 0.33 10^3/uL January 19 9:48:00 PM UTC (TECH: KSM) 43930-5 Manual differential performed [Presence] in Blood N NO January 20, 2024 9:48:00 PM UTC (TECH: KSM) ORDER 700: COMP METABOLIC PA JEROME (LOINC: 95938-8) ORDER DATE: January 20, 2024 9:33:00 PM UTC Specimen Source: Serum/Plasm a Specimen Type: Acellular blo od (serum or plasma) specimen PERFORMING LAB: [address] [id number] Result Comment: Final Result Date: January 20, 2024 9:49:00 PM UTC (TECH: KSM) LOINC TEST FLAG RESULT REFERENCE RANGE UPDA JACEK BY 2951-2 Sodium [Moles/volume ] in Serum or Plasma L 133 mmol/L 136 mmol/L - 145 mmol/L January 20, 2024 9:49:00 PM [facility] (TECH: [employer]) 2823-3 Potassium [Moles/vol ume] in Serum or Plasma N 3.9 mmol/L 3.5 mmol/L - 5.1 mmol/L January 20, 2024 9:49:00 PM UT (TECH: [employer]) 5-0 Chloride [Moles/volu me] in Serum or Plasma N 98 mmol/L 98 mmol/L - 107 mmol/L January 20, 2024 9:49:00 PM UT (TECH: [employer]) 2027-9 Carbon dioxide, tota l [Moles/volume] in Serum or Plasma N 22 mmol/L 21 mmol/L - 32 mmol/L January 20, 2024 9:49:00 PM UT (TECH: [employer]) 59179-9 Anion gap 3 in Serum or Plasma N 13.0 January 20, 2024 9:49:00 PM UT (TECH: [employer]) 2345-7 Glucose [Mass/volume ] in Serum or Plasma H 145 mg/dL 70 mg/dL - 110 mg/dL January 20, 2024 9:49:00 PM UT (TECH: [employer]) 3094-0 Urea nitrogen [Mass/volume] in Serum or Plasma H 35 mg/dL 7 mg/dL - 18 mg/dL January 20, 2024 9:49:00 PM UT (TECH: [employer]) 2160-0 Creatinine [Mass/vol ume] in Serum or Plasma H 1.3 mg/dL 0.6 mg/dL - 1.0 mg/dL January 20, 2024 9:49:00 PM UT (TECH: [employer]) 3097-3 Urea nitrogen/Creati nine [Mass Ratio] in Serum or Plasma H 26.9 Ratio 9 Ratio - 21 Ratio January 20, 2024 9:49:00 PM UT (TECH: Para[employer]) 99872-2 Glomerular filtratio n rate/1.73 sq M.predicted by Creatinine-based formula (MDRD) L 41 mL/min >60 January 20, 2024 9:49:00 PM UT (TECH: [employer]) 2885-2 Protein [Mass/volume ] in Serum or Plasma N 7.1 g/dL 6.4 g/dL - 8.2 g/dL January 19 9:49:00 PM UT (TECH: [employer]) 1751-7 Albumin [Mass/volume ] in Serum or Plasma N 3.5 g/dL 3.4 g/dL - 5.0 g/dL January 19 9:49:00 PM UT (TECH: [employer]) 15906-0 Calcium [Mass/volume ] in Serum or Plasma N 8.7 mg/dL 8.5 mg/dL - 10.1 mg/dL January 20, 2024 9:49:00 PM UT (TECH: [employer]) 68937-0 Calcium [Mass/volume ] corrected for total protein in Serum or Plasma N 9.1 mg/dL 8.5 mg/dL - 1 0.1 mg/dL January 20, 2024 9:49:00 PM [facility] (TECH: Para[employer]) 1975-2 Bilirubin.total [Mass/volume] in Serum or Plasma H 1.7 mg/dL 0.4 mg/dL - 1.5 mg/dL January 20, 2024 9:49:00 PM UT (TECH: [employer]) 1920-8 Aspartate aminotrans ferase [Enzymatic activity/volume] in Serum or Plasma N 30 U/L 15 U/L - 37 U/L January 20, 2024 9:49:00 PM [facility] (TECH: [employer]) 1742-6 Alanine aminotransfe rase [Enzymatic activity/volume] in Serum or Plasma N 38 U/L 12 U/L - 78 U/L January 20, 2024 9:49:00 PM [facility] (TECH: [employer]) 6768-6 Alkaline phosphatase [Enzymatic activity/volume] in Serum or Plasma N 91 U/L 53 U/L - 141 U/L January 20, 2024 9:49:00 PM [facility] (TECH: [employer]) LABORATORY NARRATIVE RESULTS Information is not available RADIOLOGY RESULTS ORDER 100: CT BRAIN HEAD WO (LOINC: 97873-9) ORDER DATE: January 20, 2024 8:37:00 PM [facility] PERFORMING LAB: [address] [id number] Final Result Date: January 20, 2024 9:06:[address] [place] [address] Name: SKYLER BAUTISTA Exam Date: 01/20/2024 : 1940 Age 83 years Gender: F Physician: Facility: [facility] Facility HSV: Outpatient Exam: CT BRAIN HEAD [...] Thank you for referring SKYLER BAUTISTA to [facility]. Legally authenticated by CHANTAL Thornton III, MD 2024-01-20 17:06:40 ORDER 200: CT CERVICL WO (LO INC: 44326-1) ORDER DATE: January 20, 2024 8:37:00 PM [facility] PERFORMING LAB: [address] [id number] Final Result Date: January 20, 2024 10:39:[address] [place] [address] Name: SKYLER BAUTISTA Exam Date: 01/20/2024 : 1940 Age 83 years Gender: F Physician: NILA ABREU Facility: [facility] Facility HSV: Outpatient Exam: CT CERVICL WO FINAL REPORT TECHNIQUE: Thin section axial images were obtained through the cervical spine without contrast. Coronal and sagittal reconstructed images were then provided. CLINICAL HISTORY: Pain with Trauma/Injury. Patient found in yard today FINDINGS: There is normal alignment and curvature. Prevertebral soft tissues are normal. There is no fracture. 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 IMPRESSION: No acute abnormality. Reviewed, Interpreted and Dictated by Jorje Lama M.D. Transcribed by Armand Navarro Authenticated and [facility]ASTERN Dictated By: Jorje Lama Transcribed By: Transcribed On: 01/20/2024 6:39 PM Electronically signed by: Jorje Lama 01/20/2024 Thank you for referring SKYLER BAUTISTA to [facility]. Legally authenticated by TANGELA WOODS MD 2024-01-20 18:39:09 ORDER 300: CT EXTREM UPR LT WO (LOINC: 59459-9) ORDER DATE: January 20, 2024 8:37:00 PM [facility] PERFORMING LAB: [address] [id number] Final Result Date: January 20, 2024 10:38:[address] [place] [address] Name: SKYLER BAUTISTA Exam Date: 01/20/2024 : 1940 Age 83 years Gender: F Physician: NILA ABREU Facility: [facility] Facility HSV: Outpatient Exam: CT EXTREM UPR LT WO FINAL REPORT TECHNIQUE: CT images of the left upper extremity with attention to the area of interest were obtained. CLINICAL HISTORY: Pain with Trauma/Injury. pain in shoulder area. patient found in yard today FINDINGS: There is no fracture, dislocation or other acute abnormality of bone or joint. There is degenerative disc disease at the acromioclavicular joint. The soft tissues are unremarkable. IMPRESSION: No acute abnormality. Reviewed, Interpreted and Dictated by Jorje Lama M.D. Transcribed by Armand Navarro Authenticated and [facility]ASTERN Dictated By: Jorje Lama Transcribed By: Transcribed On: 01/20/2024 6:38 PM Electronically signed by: Jorje Lama 01/20/2024 Thank you for referring SKYLER BAUTISTA to [facility]. Legally authenticated by TANGELA WOODS MD 2024-01-20 18:38:57 ORDER 400: CT FACIAL BONES W /O (LOINC: 33203-8) ORDER DATE: January 20, 2024 8:55:00 PM [facility] PERFORMING LAB: [address] [id number] Final Result Date: January 20, 2024 10:42:[address] [place] [address] Name: SKYLER BAUTISTA Exam Date: 01/20/2024 : 1940 Age 83 years Gender: F Physician: NILA ABREU Facility: [facility] Facility HSV: Outpatient Exam: CT FACIAL BONES W/O FINAL REPORT TECHNIQUE: Noncontrast axial imaging through the facial bones was obtained. Coronal reconstructions were provided. CLINICAL HISTORY: Facial Pain with Trauma/Injury FINDINGS: There are depressed fractures of the anterior and lateral andino of the left maxillary sinus with fluid within the sinus consistent with hemorrhage. All other facial bones are intact. There is evidence of chronic right sphenoiod sinusitis. The remaining sinuses are clear. There is left periorbital swelling, but the globes are intact. IMPRESSION: Fractures of left maxillary sinus andino with left periorbital soft tissue swelling. Reviewed, Interpreted and Dictated by Jorje Lama M.D. Transcribed by Armand Navarro Authenticated and [facility]ASTERN Dictated By: Jorje Lama Transcribed By: Transcribed On: 01/20/2024 6:42 PM Electronically signed by: Jorje Lama 01/20/2024 Thank you for referring MICHELE SKYLER to [facility]. Legally authenticated by TANGELA WOODS MD 2024-01-20 18:42:09 PATHOLOGY NARRATIVE RESULTS Information is not available MICROBIOLOGY RESULTS No Micro Labs/Results Exist for Patient BLOOD ADMIN RESULTS Information is not available MEDICATIONS HOME MEDICATIONS Status RXNORM NDC Medication Dose Route Frequency Dates Comments Reported By Updated By Active 526929 367444 34866 warfarin 3 mg tablet 0.0 BY MOUTH Last Dose: [id number] on January 20, 2024 8:42:53 PM [facility] Active 561037 029138 64708 amlodipine 10 mg tablet 1.0 TAB BY MOUTH DAILY Last Dose: [id number] on January 20, 2024 8:49:29 PM [facility] Active 804802 258678 04726 carvedilol 25 mg tablet 1.0 TAB BY MOUTH DAILY Last Dose: [id number] on January 20, 2024 8:49:29 PM [facility] Active 625674 753723 89940 hydralazine 10 mg tablet 1.0 TAB BY MOUTH DAILY Last Dose: [id number] on January 20, 2024 8:49:29 PM [facility] Active 424764 096402 76469 losartan 100 mg tablet 1.0 TAB BY MOUTH DAILY Last Dose: [id number] on January 20, 2024 8:49:29 PM [facility] Active 554084 399858 13546 metformin 500 mg tablet 1.0 TAB BY MOUTH BID Last Dose: [id number] on January 20, 2024 8:49:30 PM [facility] Active 759306 440138 57457 hydrocodone- acetaminophe n 5-325 mg tablet 1.0 TAB BY MOUTH DAILY Last Dose: [id number] on January 20, 2024 8:49:30 PM [facility] Active 076951 256246 02412 valsartan 160 mg tablet 1.0 TAB BY MOUTH DAILY Last Dose: [id number] on January 20, 2024 8:49:30 PM [facility] Active 126838 262142 16100 Xanax 0.5 mg tablet 1.0 TAB BY MOUTH DAILY Last Dose: [id number] on January 20, 2024 8:49:30 PM UT DISCHARGE MEDICATIONS Status RXNORM ND Medication Dose Route Frequency Dates Comments Physician Updated By No Discharge Medication Info rmation Available INPATIENT MEDICATIONS Status [facility] Medication Dose Route Frequency Rat e Quantity Dates Comments Physician Updated [facility] [phone] phytonadion e (VITAMIN K) 10 MG/ML SOLN 10.0 MG ONE TIME ONLY Start: January 20, 2024 9:21:0 0 PM UT End: January 20, 2024 9:21:0 0 PM UT BRADY DOTSON DO [facility] ED on January 20, 2024 9:20:00 PM UT SOCIAL HISTORY SOCIAL HISTORY SNOMED-CT Social History Element Description Effective Dates Offered Cessation Comment UpdatedBy [id number] Historical Tobacco smoking status Never Smoked Not Applicable [id number] on April 07, 2016 4:52:02 AM [facility] [id number] Historical Tobacco smoking status Former Smoker Yes [id number] on June 09, 2015 6:14:54 PM UT [...] for each vital sign as of January 23, 2024 11:43:38 AM [facility] Loinc Code Vital Sign Activity Date Result Updated By 8310-5 Body temperature January 20, 2024 8:34:25 PM UT 98.0 [degF] [id number] on January 21, 2024 9:40:23 PM [facility] 85470-0 Body weight Measured January 20 9:40:26 PM UT 65.771 kg (145.0 lb) [id number] on January 21, 2024 9:40:26 PM UTC 8462-4 Diastolic blood pressure January 20, 2024 8:34:25 PM UTC 82.0 mm[Hg] [id number] on January 21, 2024 9:40:23 PM UTC 8867-4 Heart rate January 20, 2024 8:38:00 PM UTC 72 /min [id number] on January 21, 2024 9:40:26 PM UTC 42094-4 Oxygen saturation in Arterial blood by Pulse oximetry January 20, 2024 8:38:00 PM UTC 98.0 % [id number] on January 21, 2024 9:40:26 PM UTC 9279-1 Respiratory rate January 20, 2024 8:34:25 PM UTC 18 /min [id number] on January 21, 2024 9:40:23 PM UTC 8480-6 Systolic blood pressure January 20, 2024 8:34:25 PM UTC 185.0 mm[Hg] [id number] on January 21, 2024 9:40:23 PM UT PEDIATRIC GROWTH CHART - VITAL [...] INJURY Admission January 20, 2024 8:25:[address] [id number] Discharge January 20, 2024 9:39:00 PM [facility] ENCOUNTER DIAGNOSES Notes information is not juan manuel ilable. Code System Diagnosis Onset Date Diagnosis information is not available. ABSTRACT DIAGNOSES Code System Diagnosis Updated By S00.12XA ICD10 CONTUSION OF LEF T EYELID AND PERIOCULAR AREA, INITIAL ENCOUNTER [id number] on January 23, 2024 11:42:56 AM [facility] S06.5X9A ICD10 TRAUMATIC SUBDUR AL HEMORRHAGE WITH LOSS OF CONSCIOUSNESS OF UNSPECIFIED DURATION, INITIAL ENCOUNTER [id number] on January 23, 2024 11:42:56 AM UT S06.6X9A ICD10 TRAUMATIC SUBARA CHNOID HEMORRHAGE WITH LOSS OF CONSCIOUSNESS OF UNSPECIFIED DURATION, INITIAL ENCOUNTER [id number] on January 23, 2024 11:42:56 AM UT S02.842A ICD10 FRACTURE OF LATE RAL ORBITAL WALL, LEFT SIDE, INITIAL ENCOUNTER FOR CLOSED FRACTURE [id number] on January 23, 2024 11:42:56 AM UT R40.2252 ICD10 COMA SCALE, BEST VERBAL RESPONSE, ORIENTED, AT ARRIVAL TO EMERGENCY DEPARTMENT [id number] on January 23, 2024 11:42:56 AM UTC R40.2362 ICD10 COMA SCALE, BEST MOTOR RESPONSE, OBEYS COMMANDS, AT ARRIVAL TO EMERGENCY DEPARTMENT [id number] on January 23, 2024 11:42:56 AM UT R40.2142 ICD10 COMA SCALE, EYES OPEN, SPONTANEOUS, AT ARRIVAL TO EMERGENCY DEPARTMENT [id number] on January 23, 2024 11:42:56 AM [facility] M25.512 ICD10 PAIN IN LEFT SHOULDER LXL412 1 on January 23, 2024 11:42:56 AM UT X58.XXXA ICD10 EXPOSURE TO OTHE R SPECIFIED FACTORS, INITIAL ENCOUNTER [id number] on January 23, 2024 11:42:56 AM UT I11.9 ICD10 HYPERTENSIVE HEA RT DISEASE WITHOUT HEART FAILURE [id number] on January 23, 2024 11:42:56 AM UT R56.9 ICD10 UNSPECIFIED CONVULSIONS PQE7 261 on January 23, 2024 11:42:56 AM UT E11.9 ICD10 TYPE 2 DIABETES MELLITUS WITHOUT COMPLICATIONS [id number] on January 23, 2024 11:42:56 AM UT D68.9 ICD10 COAGULATION DEFECT, UNSPECIF IED [id number] on January 23, 2024 11:42:56 AM UT J43.9 ICD10 EMPHYSEMA, UNSPECIFIED PQE72 61 on January 23, 2024 11:42:56 AM UT Z79.01 ICD10 KETTLE CHIPPER (CURRE NT) USE OF ANTICOAGULANTS [id number] on January 23, 2024 11:42:56 AM UT Z95.818 ICD10 PRESENCE OF OTHE R CARDIAC IMPLANTS AND GRAFTS [id number] on January 23, 2024 11:42:56 AM UT Z88.5 ICD10 ALLERGY STATUS TO NARCOTIC A GENT URY0194 on January 23, 2024 11:42:56 AM UTC Z88.1 ICD10 ALLERGY STATUS T O OTHER ANTIBIOTIC AGENTS GVH0331 on January 23, 2024 11:42:56 AM UTC CARE TEAM Care Oracle Hyperion Consultant Role NILA ABREU Primary Attending NILA ABREU Surgeon NILA ABREU Admitting KEVIN ARAYAGorge [facility] NILA ABREU Referring CARE TEAM CARE supply chain director Role on Team Status Start Date End Date Update d By BRADY DOTSON DO Surgeon normal January 19 8:25:00 PM UT January 20, 2024 9:39:00 PM UTC [id number] on January 23, 2024 11:43:10 AM UT BRADY DOTSON DO Referring normal January 19 8:59:32 PM UT January 20, 2024 4:00:00 AM UT [id number] on January 23, 2024 11:43:10 AM UT BRADY DOTSON DO Attending normal January 19 8:59:32 PM UT January 20, 2024 4:00:00 AM UT [id number] on January 23, 2024 11:43:10 AM UT BRADY DOTSON DO Admitting normal January 19 8:59:32 PM UT January 20, 2024 4:00:00 AM UT [id number] on January 23, 2024 11:43:10 AM UT BACILIO Casas MD PHY PCP normal January 20, 2024 8:26:38 PM UT January 20, 2024 4:00:00 AM UTC [id number] on January 23, 2024 11:43:10 AM UT
--- OUTSIDE RECORDS SUMMARY | 2024-03-02 18:05 | XMS_ITS | Continuity of Care Document ---
Author Name Unknown Address [address] [place], [place] [id number] Organization [facility] Phone Care Team Providers Care Problem Manager Name Role Phone CORY MORA Unavailable [phone] CORY MORA Primary Care CORY MORA Primary Attending CORY MORA Admitting [phone] ALLERGIES AND ADVERSE REACTIONS ALLERGIES AND ADVERSE REACTIONS Code System Allergy Substance Adverse Reaction Date Reaction (Severity) Comment Status Reported By Updated By 7454 RXNorm MACRODANTIN Rash Adverse reaction to substance mouth swells active [id number] on January 20, 2024 8:42:51 PM [facility] 7052 RXNorm MORPHINE Adverse reaction to substance pain active [id number] on January 20, 2024 8:42:51 PM [facility] FAMILY HISTORY RELATION: Father Status: [...] 100: UA AND MICRO/CULT IF INDICATED (LOINC: 12058-4) ORDER DATE: February 14, 2024 6:11:00 PM UTC Specimen Source: URINE Specimen Type: Urine specime n PERFORMING LAB: [address] [id number] Result Comment: Final Result Date: February 14, [...] 14, 2024 6:27:00 PM UTC (TECH: LT) 69033-5 Bilirubin.total [Mass/volume] in Urine by Automated test strip N NEGATIVE NEGATIVE January 6:27:00 PM UTC (TECH: LT) 5797-6 Ketones [Mass/volume ] in Urine by Test strip N NEGATIVE NEGATIVE February 14, 2024 6:27:00 PM UTC (TECH: LT) 2965-2 Specific gravity of Urine N 1.015 1.005 - 1.035 February 14, 2024 6:27:00 PM UTC (TECH: LT) 67022-1 Erythrocytes [#/volu me] in Urine by Automated test strip N NEGATIVE NEGATIVE February 14, 2024 6:27:00 PM UTC (TECH: LT) 94422-8 pH of Urine by Automated test strip N 6.00 5.0 - 7.5 February 13 024 6:27:00 PM UTC (TECH: LT) 96910-3 Protein [Presence] i n Urine by Test strip N 30 (1+) mg/dL NEGATIVE February 13 24 6:27:00 PM UTC (TECH: LT) 08336-7 Urobilinogen [Mass/volume] in Urine by Automated test strip N NORM NORMAL January 6:27:00 PM UTC (TECH: LT) 29180-8 Nitrate [Presence] i n Urine N NEGATIVE NEGATIVE February 14, 2024 6:27:00 PM UTC (TECH: LT) 38681-0 Leukocytes [#/volume ] in Urine by Test strip N TRACE (25) /mcL NEGATIVE February 14, 2024 6:27:00 PM UTC (TECH: LT) 42129-0 Other elements in Ur ine sediment N CUL ORD W/UA February 14, 2024 6:27:00 PM UTC (TECH: LT) 33571-3 Microscopic observat ion [Identifier] in Urine sediment by Light microscopy N YES February 14, 2024 6:27:00 PM UTC (TECH: LT) 51099-2 Erythrocytes [#/area ] in Urine sediment by Microscopy high power field N NONE SEEN 0-3 February 14, 2024 6:27:00 PM UTC (TECH: LT) 5821-4 Leukocytes [#/area] in Urine sediment by Microscopy high power field N 0-3 NONE SEEN February 14, 2024 6:27:00 PM UTC (TECH: LT) 47824-5 Epithelial cells.squamous [#/area] in Urine sediment by Microscopy high power field N 1-5 NONE SEEN February 14, 2024 6:27:00 PM UTC (TECH: LT) 5769-5 Bacteria [#/area] in Urine sediment by Microscopy high power field N TRACE NONE SEEN February 14, 2024 6:27:00 PM UTC (TECH: LT) 10437-7 Hyaline casts [Presence] in Urine sediment by Light microscopy N 5-10 NONE SEEN February 14, 2024 6:27:00 PM UTC (TECH: LT) 07568-5 Fine Granular Casts [Presence] in Urine sediment by Light microscopy N OCCASIONAL NONE SEEN February 14, 2024 6:27:00 PM UTC (TECH: LT) 06419-5 Waxy casts [Presence ] in Urine sediment [...] Description Effective Dates Offered Cessation Comment UpdatedBy [id number] Historical Tobacco smoking status Never Smoked Not Applicable [id number] on April 07, 2016 4:52:02 AM [facility] [id number] Historical Tobacco smoking status Former Smoker Yes [id number] on June 09, 2015 6:14:54 PM [facility] SOCIAL HISTORY - Gender Sex: [...] PAIN Admission February 14, 2024 6:10:[address] [address] Discharge February 14, 2024 7:10:00 PM [facility] DI SCHARGED TO HOME OR SELF CARE ENCOUNTER DIAGNOSES Notes information is not juan manuel ilable. Code System Diagnosis Onset Date Diagnosis information is not available. ABSTRACT DIAGNOSES Code System Diagnosis Updated By R30.9 ICD10 PAINFUL MICTURITION, UNSPECI FIED [id number] on February 15, 2024 1:33:57 PM [facility] R30.9 ICD10 PAINFUL MICTURITION, UNSPECI FIED [id number] on February 15, 2024 1:33:57 PM [facility] M54.9 ICD10 DORSALGIA, UNSPECIFIED [id number] on February 15, 2024 1:33:57 PM [facility] CARE TEAM Care Problem Manager Role CORY MORA Referring CORY MORA Primary Care CORY MORA Primary Attending CORY MORA Admitting CARE TEAM CARE creative manager Role on Team Status Start Date End Date Update d By ABBY RAY YOLK SPRAY DRIER PCP normal February 14, 2024 4:00:00 AM UTC February 14, 2024 4:00:00 AM UTC [id number] on February 14, 2024 7:22:53 PM [facility] ABBY RAY APRN Referring normal February 14, 2024 4:00:00 AM UTC February 14, 2024 4:00:00 AM UTC [id number] on February 14, 2024 7:22:53 PM [facility] ABBY RAY APRN Attending normal February 14, 2024 4:00:00 AM UTC February 14, 2024 4:00:00 AM UTC [id number] on February 14, 2024 7:22:53 PM [facility] ABBY RAY APRN Admitting normal February 14, 2024 4:00:00 AM UTC February 14, 2024 4:00:00 AM UTC [id number] on February 14, 2024 7:22:[address] MD PCP normal February 14, 2024 6:10:54 PM UT February 14, 2024 4:00:00 AM UTC [id number] on February 14, 2024 7:22:53 PM [facility]
--- OUTSIDE RECORDS SUMMARY | 2024-03-02 18:05 | XMS_ITS | Continuity of Care Document ---
Author Name Unknown Organization [facility] Address [address] [address] Phone Care Team Providers Care Sifter And Miller Name Role Phone Zunilad SLOAN Bong Unavailable Unavailable Allergies, Adverse Reactions, [...] route every day 0.5 MG - Active Ashfield 5 mg-325 mg tablet take 1 tablet [...] New Office Visit Level [facility] [address], [id number], tel:[phone] [facility]. Osteoarthritis (chief complaint)Join t Pain (chief complaint)Nail changes (chief complaint) Body mass index (BMI) 27.0-27.9, adultGenerali zed osteoarthriti sNail dystrophy 0 [facility]. [address] [facility] [address], [place], [address]. tel:[phone] , [address] [place] [address], [address].Refe rring Provider: Delia Jackson, [address] [place] [address], [address]. tel:[phone] Family History Family Member Type Diagnosis Age At Onset Son Problem CLL Cancer Sister Problem heart attack Sister Problem malignant neoplasm of ovary Father Problem prostate cancer Mother Problem cancer of colon Son Problem (finding) Payers Payer name Insurance type Covered libertarian ID Authoriza tion(s) Medicare 40142 MB [id number] [facility] Supplemental [id number] CI [id number] Social History Type Description Quantity Date Captured [...] Instruction Additional Infor paige 1. She takes Ashfield P RN for pain relief. 2. She now limits/avoids oral NSAIDS. She is on a blood thinner and she has a history of coronary artery disease. 3. She has had 3 back surgeries. 4. She has done some physical therapy. 5. She has seen a saw offbearer for her feet. 6. She has tried Tylenol PRN as directed. 7. Weight loss would be helpful.8. I gave her a handout on osteoarthritis to take home and review. 9. Follow up with me as needed. 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 This is her biggest complaint. She has been seeing a saw offbearer. Reportedly nail clippings were negative for fungus. There is concern that her dystrophic nails may be due to psoriasis. The patient has no history of psoriatic skin lesions otherwise. I am going to refer her to dermatology to help evaluate/manage this further. Patient with psoriasis can have/develop psoriatic arthritis. See above regarding arthritis. This patient is taking Ashfield PRN. Currently her arthritis is not the issue. Follow up with me as needed. Related to Nail dystrophy Lifestyle education regarding di et Related to Body mass index (BMI) 27.0-27.9, adult Assessments Type Assessment Date assessment Body mass index (BMI) 27.0-27.9, adult assessment Generalized osteoarthritis assessment Nail dystrophy impression * Medications/treatm ents/interventions tried include: Tylenol, She has seen a saw offbearer, she has had back surgery, she has done some physical therapy, Ashfield, she limits/avoids oral NSAIDS because she is on a blood thinner Patient Care Teams Name Effective Dates (start - stop) Status Members No Information
--- OUTSIDE RECORDS SUMMARY | 2024-03-02 18:05 | XMS_ITS | Continuity of Care Document ---
Author Name Unknown Organization [facility] Address [address] [place] [address] Phone Care Team Providers Care Residency Coordinator Name Role Phone Mary Cool OD Unavailable [...] IENT VISIT, NEW [facility] , [address] [place], [place], [facility], tel:[phone] [facility] Glaucoma consult (chief complaint) Primary open angle glaucoma (POAG) of both eyes, indeterminate stagePseudophakia of both eyesIritis of right eye 9 Silvinashahida Hernandez. [address] [place], [place], [facility], . tel:[phone] Specialist : Zurdo Carmen [address] [place] [address] [address], [place], [place], [facility]. tel:[phone] erring Provider: Zurdo Earl, [address] [place] [address] [address], [place], [place], [facility]. tel:[phone] Family History Family Member Type Diagnosis Age [...] democrat ID Authoriza timitchell(s) Medicare [place] MB [id number] [facility] Healthcare Supplement [id number] CI [id number] Social History Type Description Quantity Date [...] ordered Referral Referred To: Zurdo Carmen [address] [facility]
[address] [place], [phone] Ordered: Referrals: Allopathic & Osteopathic Physicians : [...]
--- OUTSIDE RECORDS SUMMARY | 2024-03-02 18:05 | XMS_ITS | Clinical Summary ---
Author Name Unknown Address [address] [place] [address] Phone Organization [facility] Address [address] [place] [address] Phone Care Team Providers Care Aviation Ordnance Officer Name Role Phone Smita ESCOBEDO, Jorje Arceo [phone] [ ] Conditions or Problems Problem Name Problem Code Onset Date Status Entry Date Provider Comment Standard Description Annotate Contusion of left lower leg, subsequent encounter(s) S80.12xD (ICD-10-CM) Active Arlen Feng Contusion of left lower leg, subsequent encounter Cellulitis of LLE L03.116 (ICD-10-CM) Active Arlen Feng Cellulitis of left lower limb DM II with diabetic PVD [id number] (SNOMED CT) Active Arlen Feng Peripheral vascular disease Benign Essential Hypertension 1655095 (SNOMED CT) Active Arlen Feng Benign essential hypertension Medications Medication Instructions Start Date Stop Date Generic Name [facility] Provider VALSARTAN 160 MG TABS 1 tablet po daily VALSARTAN [id number] Leti Dela Cruz ALPRAZOLAM 0.5 MG TABS Take one by mouth daily/PRN ALPRAZOLAM 98103411273 Lexi Gipson VIBRAMYCIN 100 MG CAPS Take by mouth twice a day DOXYCYCLINE HYCLATE 67601546553 Lexi Gipson TERBINAFINE HCL 250 MG TABS Take one by mouth daily TERBINAFINE HCL 04296499101 Lexi Gipson RANEXA 1000 MG ORAL TABLET EXTENDED RELEASE 12 HOUR Take by mouth twice a day RANOLAZINE 01026413669 Lexi Nascimentodox CLOPIDOGREL BISULFATE 75 MG TABS Take one by mouth daily CLOPIDOGREL BISULFATE 69694315717 Lexi Nascimentodox OMEPRAZOLE 40 MG CPDR Take one by mouth daily OMEPRAZOLE 52447966180 Lexi Nascimentodox NORVASC 10 MG TABS Take one by mouth daily AMLODIPINE BESYLATE 32188874725 Lexi Nascimentodox HYDROCODONE-ACET AMINOPHEN 7.5-325 MG TABS Q6H/PRN HYDROCODONE-ACET AMINOPHEN 55141421224 Lexi Nascimentodox DAILY MULTIVITAMIN CAPS Take one by mouth daily MULTIPLE VITAMINS-MINERAL S 79641411353 Lexi Nascimentodox METFORMIN HCL 500 MG TABS Take by mouth twice a day METFORMIN HCL 89389365870 Lexi Gipson LOVENOX 60 MG/0.6ML SUBCUTANEOUS SOLUTION 70 mg, SubCutaneous, Q12H ENOXAPARIN SODIUM 69071803233 Lexi Thorpex LOSARTAN POTASSIUM 100 MG TABS Take one by mouth daily LOSARTAN POTASSIUM 04201562913 Lexi Nascimentodox ACIDOPHILUS LACTOBACILLUS CAPS Take two by mouth daily LACTOBACILLUS 76125683344 Lexi Nascimentodox HYDRALAZINE HCL 50 MG TABS 2 Tab, Oral, BID HYDRALAZINE HCL 66195087455 Lexi Thorpex DORZOLAMIDE HCL 2 % SOLN 1 Drop, Eye Right, BID DORZOLAMIDE HCL 33541885479 Lexi Nascimentodox WARFARIN SODIUM 3 MG TABS Take one by mouth daily WARFARIN SODIUM 26187879572 Lexi Nascimentodox CARVEDILOL 6.25 MG TABS Take one by mouth 3 times daily, morning, afternoon and evening. CARVEDILOL 91982098472 Lexi Nascimentodox ATORVASTATIN CALCIUM 80 MG TABS Take one by mouth daily ATORVASTATIN CALCIUM 57693926267 Lexi Nascimentodox AMOXICILLIN-POT CLAVULANATE 875-125 MG TABS Take by mouth twice a day AMOXICILLIN-POT CLAVULANATE 63987831938 Lexi Gipson Medications Administered No information available. Allergies, Adverse Reactions, Alerts Allergy Name Reaction Description Start Date Severity Statu s Provider NITROFURANTOIN MACROCRYSTAL Moderate Active Lexi Gipson MORPHINE SULFATE (PF) Moderate Active Lexi Gipson MACRODANTIN Moderate Active Lxei Gipson Results Date Name Value Unit Range [...]
--- NOTE | 2024-03-02 18:10 | PC.NURSE ---
Gave report to Jessa MCCRAY on med/surg unit.
--- NOTE | 2024-03-02 18:20 | PC.NURSE ---
2nd fl staff at bedside to take pt to um/s unit
--- NOTE | 2024-03-02 18:24 | PC.NURSE ---
arrived by stretcher from ED
[2024-03-02] MEDS: dilTIAZem HCL 100 MG in 0.9 % SODIUM CHLORIDE 100 ML 10 MG IV (18:39)
--- OUTSIDE RECORDS SUMMARY | 2024-03-02 19:06 | XMS_ITS | Continuity of Care Document ---
Author Name Unknown Address [address] [place], [place] [id number] Organization [facility] Phone Care Team Providers Care Animal Shelter Manager Name Role Phone CORY MORA Unavailable CORY MORA Primary Care [phone] CORY MORA Primary Attending [phone] CORY MORA Admitting ALLERGIES AND ADVERSE REACTIONS ALLERGIES AND ADVERSE REACTIONS Code System Allergy Substance Adverse Reaction Date Reaction (Severity) Comment Status Reported By Updated By 7454 RXNorm MACRODANTIN Rash Adverse reaction to substance mouth swells active [id number] on January 20, 2024 8:42:51 PM [facility] 7052 RXNorm MORPHINE Adverse reaction to substance pain active [id number] on January 20, 2024 8:42:51 PM [facility] FAMILY HISTORY RELATION: Father Status: Cause of [...] 100: UA AND MICRO/CULT IF INDICATED (LOINC: 09295-6) ORDER DATE: February 14, 2024 6:11:00 PM UTC Specimen Source: URINE Specimen Type: Urine specime n PERFORMING LAB: [address] [id number] Result Comment: Final Result Date: February 14, [...] 14, 2024 6:27:00 PM UTC (TECH: LT) 07313-9 Bilirubin.total [Mass/volume] in Urine by Automated test strip N NEGATIVE NEGATIVE January 6:27:00 PM UTC (TECH: LT) 5797-6 Ketones [Mass/volume ] in Urine by Test strip N NEGATIVE NEGATIVE February 14, 2024 6:27:00 PM UTC (TECH: LT) 2965-2 Specific gravity of Urine N 1.015 1.005 - 1.035 February 14, 2024 6:27:00 PM UTC (TECH: LT) 05296-3 Erythrocytes [#/volu me] in Urine by Automated test strip N NEGATIVE NEGATIVE February 14, 2024 6:27:00 PM UTC (TECH: LT) 21756-6 pH of Urine by Automated test strip N 6.00 5.0 - 7.5 February 13 024 6:27:00 PM UTC (TECH: LT) 84305-0 Protein [Presence] i n Urine by Test strip N 30 (1+) mg/dL NEGATIVE February 13 24 6:27:00 PM UTC (TECH: LT) 24790-6 Urobilinogen [Mass/volume] in Urine by Automated test strip N NORM NORMAL January 6:27:00 PM UTC (TECH: LT) 10285-6 Nitrate [Presence] i n Urine N NEGATIVE NEGATIVE February 14, 2024 6:27:00 PM UTC (TECH: LT) 83582-8 Leukocytes [#/volume ] in Urine by Test strip N TRACE (25) /mcL NEGATIVE February 14, 2024 6:27:00 PM UTC (TECH: LT) 93703-5 Other elements in Ur ine sediment N CUL ORD W/UA February 14, 2024 6:27:00 PM UTC (TECH: LT) 25784-3 Microscopic observat ion [Identifier] in Urine sediment by Light microscopy N YES February 14, 2024 6:27:00 PM UTC (TECH: LT) 89968-2 Erythrocytes [#/area ] in Urine sediment by Microscopy high power field N NONE SEEN 0-3 February 14, 2024 6:27:00 PM UTC (TECH: LT) 5821-4 Leukocytes [#/area] in Urine sediment by Microscopy high power field N 0-3 NONE SEEN February 14, 2024 6:27:00 PM UTC (TECH: LT) 68682-4 Epithelial cells.squamous [#/area] in Urine sediment by Microscopy high power field N 1-5 NONE SEEN February 14, 2024 6:27:00 PM UTC (TECH: LT) 5769-5 Bacteria [#/area] in Urine sediment by Microscopy high power field N TRACE NONE SEEN February 14, 2024 6:27:00 PM UTC (TECH: LT) 07431-3 Hyaline casts [Presence] in Urine sediment by Light microscopy N 5-10 NONE SEEN February 14, 2024 6:27:00 PM UTC (TECH: LT) 40940-9 Fine Granular Casts [Presence] in Urine sediment by Light microscopy N OCCASIONAL NONE SEEN February 14, 2024 6:27:00 PM UTC (TECH: LT) 80657-3 Waxy casts [Presence ] in Urine sediment [...] 0 Routine February 14, 2024 6:10:00 PM [facility] PATIENT [id number] on February 14, 2024 6:11:00 PM [facility] SCHEDULED PROCEDURES Code System Description Status Scheduled [...] Description Effective Dates Offered Cessation Comment UpdatedBy [id number] Historical Tobacco smoking status Never Smoked Not Applicable [id number] on April 07, 2016 4:52:02 AM [facility] [id number] Historical Tobacco smoking status Former Smoker Yes [id number] on June 09, 2015 6:14:54 PM [facility] SOCIAL HISTORY - Gender Sex: Female SOCIAL [...] PAIN Admission February 14, 2024 6:10:[address] [address] Discharge February 14, 2024 7:10:00 PM [facility] DI SCHARGED TO HOME OR SELF CARE ENCOUNTER DIAGNOSES Notes information is not juan manuel ilable. Code System Diagnosis Onset Date Diagnosis information is not available. ABSTRACT DIAGNOSES Code System Diagnosis Updated By R30.9 ICD10 PAINFUL MICTURITION, UNSPECI FIED [id number] on February 15, 2024 1:33:57 PM [facility] R30.9 ICD10 PAINFUL MICTURITION, UNSPECI FIED [id number] on February 15, 2024 1:33:57 PM [facility] M54.9 ICD10 DORSALGIA, UNSPECIFIED [id number] on February 15, 2024 1:33:57 PM UTC CARE TEAM Care Animal Shelter Manager Role CORY MORA Referring CORY MORA Primary Care CORY MORA Primary Attending CROY MORA Admitting CARE TEAM CARE shipping weigher Role on Team Status Start Date End Date Update d By ABBY RAY APRN PCP normal February 14, 2024 4:00:00 AM UT February 14, 2024 4:00:00 AM UT [id number] on February 14, 2024 7:22:53 PM UT ABBY RAY APRN Referring normal February 14, 2024 4:00:00 AM UT February 14, 2024 4:00:00 AM UT [id number] on February 14, 2024 7:22:53 PM [facility] ABBY RAY APRN Attending normal February 14, 2024 4:00:00 AM UT February 14, 2024 4:00:00 AM UT [id number] on February 14, 2024 7:22:53 PM [facility] ABBY RAY APRN Admitting normal February 14, 2024 4:00:00 AM UT February 14, 2024 4:00:00 AM UT [id number] on February 14, 2024 7:22:[address] MD PCP normal February 14, 2024 6:10:54 PM UT February 14, 2024 4:00:00 AM UT [id number] on February 14, 2024 7:22:53 PM [facility]
--- OUTSIDE RECORDS SUMMARY | 2024-03-02 19:06 | XMS_ITS | Continuity of Care Document ---
Author Name Unknown Address [address] [place] [phone] Organization [facility] Phone Care Team Providers Care Apron Worker Name Role Phone KAVITHA MORALES Admitting KAVITHA MORALES Primary Attending [phone] KAVITHA MORALES Unavailable KEVIN RIBERA Primary Care ALLERGIES AND ADVERSE REACTIONS ALLERGIES AND ADVERSE REACTIONS Code System Allergy Substance Adverse Reaction Date Reaction (Severity) Comment Status Reported By Updated By 7463 RXNorm MACRODANTIN Rash Adverse reaction to substance mouth swells active [id number] on September 16, 2023 9:50:29 PM [facility] 7052 RXNorm MORPHINE Adverse reaction to substance pain active [id number] on September 16, 2023 9:50:29 PM [facility] FAMILY HISTORY RELATION: Father Status: [...] Priority [place] [address] [facility] Upper extremity joint - left MRI WO contrast ONE TIME 0 Routine January 20, 2024 5:21:00 PM [facility] ANDREW PLUMMER PA-C [id number] on January 20, 2024 5:22:00 PM [facility] SCHEDULED PROCEDURES Code System Description Status [...] Description Effective Dates Offered Cessation Comment UpdatedBy [id number] Historical Tobacco smoking status Never Smoked Not Applicable [id number] on April 07, 2016 4:52:02 AM [facility] [id number] Historical Tobacco smoking status Former Smoker Yes [id number] on June 09, 2015 6:14:54 PM [facility] SOCIAL HISTORY - Gender Sex: [...] M25.512 Admission January 20, 2024 5:10:[address] [address] Discharge January 20, 2024 5:10:00 PM [facility] DIS CHARGED TO HOME OR SELF CARE ENCOUNTER DIAGNOSES Notes information is not juan manuel ilable. Code System Diagnosis Onset Date Diagnosis information is not available. ABSTRACT DIAGNOSES Code System Diagnosis Updated By M25.512 ICD10 PAIN IN LEFT SHOULDER [id number] 3 on January 09, 2024 3:12:27 PM [facility] CARE TEAM Care Apron Worker Role KAVITHA MORALES Admitting KAVITHA MORALES Primary Attending KAVITHA MORALES Referring KEVIN RIBERA Primary Care CARE TEAM CARE steel barrel reamer Role on Team Status Start Date End Date Update d By BACILIO Casas MD PHY PCP normal January 09, 2024 3:12:28 PM [facility] January 20, 2024 5:10:00 PM [facility] [id number] on January 09, 2024 3:12:28 PM [facility] ANDREW PLUMMER PA-C Referring normal January 09, 2024 3:12:27 PM [facility] January 20, 2024 5:10:00 PM [facility] [id number] on January 09, 2024 3:12:28 PM [facility] ANDREW PLUMMER PA-C Attending normal January 09, 2024 3:12:27 PM [facility] January 20, 2024 5:10:00 PM [facility] [id number] on January 09, 2024 3:12:28 PM [facility] ANDREW PLUMMER PA-C Admitting normal January 09, 2024 3:12:27 PM [facility] January 20, 2024 5:10:00 PM [facility] [id number] on January 09, 2024 3:12:28 PM [facility]
--- OUTSIDE RECORDS SUMMARY | 2024-03-02 19:07 | XMS_ITS | Continuity of Care Document ---
Author Name Unknown Organization [facility] Address [address] [address] Phone Care Team Providers Care Director Digital Communications Name Role Phone Zunilda SLOAN Bong Unavailable [...] route every day 0.5 MG - Active Little Neck 5 mg-325 mg tablet take 1 tablet [...] New Office Visit Level IV [facility] [address], [id number], tel:[phone] [facility]. Osteoarthritis (chief complaint)Join t Pain (chief complaint)Nail changes (chief complaint) Body mass index (BMI) 27.0-27.9, adultGenerali zed osteoarthriti sNail dystrophy 0 [facility]. [address] [facility], [place], [address]. tel:[phone] , [address] [place] [address], [phone].Refe rring Provider: Delia Jackson, [address] [place] [address], [address]. tel:[phone] Family History Family Member Type Diagnosis Age At Onset Son Problem CLL Cancer Sister Problem heart attack Sister Problem malignant neoplasm of ovary Father Problem prostate cancer Mother Problem cancer of colon Son Problem (finding) Payers Payer name Insurance type Covered libertarian ID Authoriza tion(s) Medicare [id number] MB [id number] [facility] Supplemental [id number] CI [id number] Social History Type Description Quantity Date Captured [...] Instruction Additional Infor paige 1. She takes [place]ck P RN for pain relief. 2. She now limits/avoids oral NSAIDS. She is on a blood thinner and she has a history of coronary artery disease. 3. She has had 3 back surgeries. 4. She has done some physical therapy. 5. She has seen a online media director for her feet. 6. She has tried Tylenol PRN as directed. 7. Weight loss would be helpful.8. I gave her a handout on osteoarthritis to take home and review. 9. Follow up with me as needed. 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 This is her biggest complaint. She has been seeing a online media director. Reportedly nail clippings were negative for fungus. There is concern that her dystrophic nails may be due to psoriasis. The patient has no history of psoriatic skin lesions otherwise. I am going to refer her to dermatology to help evaluate/manage this further. Patient with psoriasis can have/develop psoriatic arthritis. See above regarding arthritis. This patient is taking [place] Neck PRN. Currently her arthritis is not the issue. Follow up with me as needed. Related to Nail dystrophy Lifestyle education regarding di et Related to Body mass index (BMI) 27.0-27.9, adult Assessments Type Assessment Date assessment Body mass index (BMI) 27.0-27.9, adult assessment Generalized osteoarthritis assessment Nail dystrophy impression * Medications/treatm ents/interventions tried include: Tylenol, She has seen a online media director, she has had back surgery, she has done some physical therapy, Little Neck, she limits/avoids oral NSAIDS because she is on a blood thinner Patient Care Teams Name Effective Dates (start - stop) Status Members No Information
--- OUTSIDE RECORDS SUMMARY | 2024-03-02 19:07 | XMS_ITS | Clinical Summary ---
Author Name Unknown Address [address] [place] [address] Phone Organization [facility] Address [address] [place] [address] Phone Care Team Providers Care Sales Marketing Director Name Role Phone Smita ESCOBEDO, Jorje Arceo [ ] Conditions or Problems Problem Name Problem Code Onset Date Status Entry Date Provider Comment Standard Description Annotate Contusion of left lower leg, subsequent encounter(s) S80.12xD (ICD-10-CM) Active Arlen Feng Contusion of left lower leg, subsequent encounter Cellulitis of LLE L03.116 (ICD-10-CM) Active Arlen Feng Cellulitis of left lower limb DM II with diabetic PVD 357052172 (SNOMED CT) Active Arlen Feng Peripheral vascular disease Benign Essential Hypertension 3514369 (SNOMED CT) Active Arlen Feng Benign essential hypertension Medications Medication Instructions Start Date Stop Date Generic Name [facility] Provider VALSARTAN 160 MG TABS 1 tablet po daily VALSARTAN [id number] Leti Dela Cruz ALPRAZOLAM 0.5 MG TABS Take one by mouth daily/PRN ALPRAZOLAM 89777885020 Lexi Gipson VIBRAMYCIN 100 MG CAPS Take by mouth twice a day DOXYCYCLINE HYCLATE 16766498909 Lexi Gipson TERBINAFINE HCL 250 MG TABS Take one by mouth daily TERBINAFINE HCL 52078238604 Lexi Gipson RANEXA 1000 MG ORAL TABLET EXTENDED RELEASE 12 HOUR Take by mouth twice a day RANOLAZINE [id number] Lexi Nascimentodox CLOPIDOGREL BISULFATE 75 MG TABS Take one by mouth daily CLOPIDOGREL BISULFATE 52894268830 Lexi Nascimentodox OMEPRAZOLE 40 MG CPDR Take one by mouth daily OMEPRAZOLE 00082588448 Leix Nascimentodox NORVASC 10 MG TABS Take one by mouth daily AMLODIPINE BESYLATE 52149120792 Lexi Nascimentodox HYDROCODONE-ACET AMINOPHEN 7.5-325 MG TABS Q6H/PRN HYDROCODONE-ACET AMINOPHEN 58410973343 Lexi Nascimentodox DAILY MULTIVITAMIN CAPS Take one by mouth daily MULTIPLE VITAMINS-MINERAL S 54372403727 Lexi Nascimentodox METFORMIN HCL 500 MG TABS Take by mouth twice a day METFORMIN HCL 71973235165 Lexi Gipson LOVENOX 60 MG/0.6ML SUBCUTANEOUS SOLUTION 70 mg, SubCutaneous, Q12H ENOXAPARIN SODIUM 46958132400 Lexi Thorpex LOSARTAN POTASSIUM 100 MG TABS Take one by mouth daily LOSARTAN POTASSIUM 32026588307 Lexi Nascimentodox ACIDOPHILUS LACTOBACILLUS CAPS Take two by mouth daily LACTOBACILLUS 81443889296 Lexi Nascimentodox HYDRALAZINE HCL 50 MG TABS 2 Tab, Oral, BID HYDRALAZINE HCL 71483536567 Lexi Thorpex DORZOLAMIDE HCL 2 % SOLN 1 Drop, Eye Right, BID DORZOLAMIDE HCL 52321375160 Lexi Nascimentodox WARFARIN SODIUM 3 MG TABS Take one by mouth daily WARFARIN SODIUM 39867762000 Lexi Nascimentodox CARVEDILOL 6.25 MG TABS Take one by mouth 3 times daily, morning, afternoon and evening. CARVEDILOL 59828603921 Lexi Nascimentodox ATORVASTATIN CALCIUM 80 MG TABS Take one by mouth daily ATORVASTATIN CALCIUM 75881099190 Lexi Nascimentodox AMOXICILLIN-POT CLAVULANATE 875-125 MG TABS Take by mouth twice a day AMOXICILLIN-POT CLAVULANATE 89586343106 Lexi Gipson Medications Administered No information available. [...]
--- OUTSIDE RECORDS SUMMARY | 2024-03-02 19:07 | XMS_ITS | Continuity of Care Document ---
Author Name Unknown Organization [facility] Address [address] [place] [address] Phone Care Team Providers Care Tool Repairer Name Role Phone Mary Cool OD Unavailable [...] IENT VISIT, NEW [facility] , [address] [place], [place], [facility], tel:[phone] [facility] Glaucoma consult (chief complaint) Primary open angle glaucoma (POAG) of both eyes, indeterminate stagePseudophakia of both eyesIritis of right eye 9 Silvinashahida Hernandez. [address] [place], [place], [facility], . tel:[phone] Specialist : Zurdo Carmen [address] [place] [address] [address], [place], [place], [facility]. tel:[phone] erring Provider: Zurdo Earl, [address] [place] [address] [address], [place], [place], [facility]. tel:[phone] Family History Family Member Type Diagnosis Age [...] democrat ID Authoriza timitchell(s) Medicare [place] MB [id number] [facility] Healthcare Supplement [id number] CI [id number] Social History Type Description Quantity Date [...] ordered Referral Referred To: Zurdo Carmen [address] [place], [phone] Ordered: Referrals: Allopathic & Osteopathic Physicians : [...]
--- NOTE | 2024-03-02 19:22 | P.HP_ITS ---
History of Present Illness *Admission Date: 03/02/24 *Reason for visit:: CP *History of present illness: This is an 83-year-old female, with past medical history of A-fib, CAD status post stent on warfarin, HTN, CHF coming to ER for evaluation of chest pain and tachycardia. Patient seen her primary doctor this morning who found her heart rate being under 130, arrhythmic. Patient was referred to the hospital for evaluation. patient send has been in the nursing facility for the last 6 several weeks, after had a fall at home with significant trauma, with intracranial bleeding. She was hospitalized at the [facility] [place] where she is required management. She was complaining of ongoing swelling of her bilateral lower extremity headache and dizziness. Patient is ongoing treatment for reported UTI. Admitted for further treatment and management. [facility] Disclaimer: The information contained in this section may have been updated after the patient was seen, as this information can be updated by other users. Medical History (Updated 03/02/24 @ 23:53 by Carlos Torres APRN) Sleep apnea A-fib Emphysema lung Surgical History (Updated 03/02/24 @ 23:52 by Carlos Torres APRN) Hx of CABG Social History (Updated 03/02/24 @ 19:03 by ABA De La Torre) Smoking Status: Never smoker alcohol intake: never substance use type: denies use current occupational status: retired Travel in the last 8 weeks: None household members: spouse housing: house Review of Systems Review of Systems Review of systems:: pertinent systems reviewed and negative unless documented below Meds Home Medications and Allergies Home Medications Medication Instructions Recorded Confirmed Type alprazolam 0.5 mg tablet 0.25 mg PO HS 30 days #15 tabs 12/25/18 05/27/20 History amlodipine 10 mg tablet 10 mg PO DAILY 12/25/18 05/27/20 History aspirin 81 mg chewable tablet 81 mg PO DAILY 12/25/18 05/27/20 History atorvastatin 80 mg tablet 80 mg PO DAILY 90 days #90 tabs 12/25/18 05/27/20 History brimonidine 0.2 %-timolol 0.5 % ophthalmic (eye) 37 days 12/25/18 05/27/20 History eye drops difluprednate 0.05 % eye drops ophthalmic (eye) 25 days 12/25/18 05/27/20 History dorzolamide 2 % eye drops ophthalmic (eye) 37 days 12/25/18 05/27/20 History hydralazine 10 mg tablet 10 mg PO BID 90 days #180 tabs 12/25/18 05/27/20 History metformin 500 mg tablet,extended 500 mg PO BID 90 days #180 tabs 12/25/18 05/27/20 History release 24 hr omeprazole 40 mg capsule,delayed 40 mg PO DAILY 30 days #30 caps 12/25/18 05/27/20 History release ranolazine 500 mg tablet,extended 1,000 mg PO BID 30 days #120 tabs 12/25/18 05/27/20 History release,12 hr valsartan 160 mg tablet 160 mg PO DAILY 30 days #30 tabs 12/25/18 05/27/20 History carvedilol 6.25 mg tablet 6.25 mg PO Q8H 05/12/20 05/27/20 History hydrocodone 5 mg-acetaminophen 325 1 tab PO QHS PRN 05/12/20 05/27/20 History mg tablet warfarin 2 mg tablet 2 mg PO .COMPLEX 05/12/20 05/27/20 History warfarin 2.5 mg tablet (Coumadin) 1.5 mg PO .COMPLEX 05/12/20 05/27/20 History duloxetine 60 mg capsule,delayed 60 mg PO DAILY 30 days #30 caps 05/27/20 05/27/20 Rx release methylprednisolone 4 mg tablets in See Rx Instructions PO PER PKG DIR 05/27/20 05/27/20 Rx a dose pack (Medrol ([place])) #21 tabs nystatin-triamcinolone 100,000 1 applic topical DAILY #30 grams 07/15/21 Rx unit/gram-0.1 % topical ointment New Prescriptions to Start Prescriptions: Allergies Allergy/AdvReac Type Severity Reaction Status Date / Time nitrofurantoin Allergy Intermediate Rash Verified 03/02/24 16:03 [From Macrodantin] morphine Allergy Unknown Unknown Verified 03/02/24 16:03 allergy reaction Exam Data for Last 24 hours Vital signs and Labs for Last 24 Hours: Temp Pulse Resp BP Pulse Ox O2 Del Method 98.2 F 132 H 22 128/72 97 Room Air 03/02/24 18:45 03/02/24 18:05 03/02/24 18:05 03/02/24 18:05 03/02/24 18:00 03/02/24 18:05 Laboratory Results - last 24 hr 03/02/24 12:41: PT 11.9, INR 1.11 H, Sodium 131 L, Potassium 4.4, Chloride 104, Carbon Dioxide 21 L, Anion Gap 10.4, BUN 11, Creatinine 0.70, Estimated Creat Clear 37, Estimated GFR 80, Est GFR ( Amer) 96, Glucose 94, Calcium 9.3, Magnesium 0.8 L, Total Bilirubin 1.1, AST 60 H, ALT 31, Alkaline Phosphatase 70, Troponin I 0.03, NT-Pro-B Natriuret Pep 7220 H, Total Protein 6.8, Albumin 3.8, Globulin 3.0, Albumin/Globulin Ratio 1.3 03/02/24 13:08: Urine Color Yellow, Urine Appearance Clear, Urine pH 5.5, Ur Specific [place] <= 1.005, Urine Protein Negative, Urine Glucose (UA) Negative, Urine Ketones Negative, Urine Blood Negative, Urine Nitrate Negative, Urine Bilirubin Negative, Urine Urobilinogen 0.2, Ur Leukocyte Esterase Negative, Urine RBC None, Urine WBC 3-5, Ur Squamous Epith Cells 5-10, Urine Bacteria Trace 03/02/24 13:30: WBC 5.5, RBC 2.80 L, Hgb 10.5 L, Hct 31.6 L, MCV 112.7 H, MCH 37.5 H, MCHC 33.2, RDW 15.5, Plt Count 126 L, MPV 8.0, Neut % (Auto) 63.5, Lymph % (Auto) 28.4, Stanton % (Auto) 5.6, Eos % (Auto) 2.1, Baso % (Auto) 0.4, Neut # (Auto) 3.5, Lymph # (Auto) 1.6, Stanton # (Auto) 0.3, Eos # (Auto) 0.1, Baso # (Auto) 0.0 03/02/24 16:03: Troponin I 0.02 I & O for Last 24 hours: Intake & Output 02/28/24 02/29/24 03/01/24 03/02/24 23:59 23:59 23:59 23:59 Intake Total 4.167 / 4.167 Balance 4.167 / 4.167 Weight 61.944 kg Constitutional Constitutional: mild distress and cooperative *Routine HEENT Exam Head: Present normocephalic Eye: Present EOMI and PERRL ENT: Present mucous membranes moist *Routine Neck Exam Neck: Present supple; Absent lymphadenopathy *Routine Respiratory Exam Respiratory: Present CTA bilaterally *Routine Cardiovascular Exam Cardiovascular: Present Normal S1, Normal S2 and irregularly irregular *Routine Abdominal Exam Abdominal: Present soft and normoactive bowel sounds; Absent tenderness *Routine Rectal Exam Rectal:: deferred *Routine Genitalia Exam Genitalia:: deferred *Routine Extremities Exam Extremities: Present edema and full ROM; Absent cyanosis or clubbing Comments: left fifth finger splint in place *Routine Skin Exam Skin: Present warm; Absent rash *Routine Neurological Exam Neurological: Present alert, oriented X3, normal reflexes and moving all extremities H&P: Result Imaging and Cardiology EKG: Status: image reviewed by me, Preliminary report and final report CT scan - chest: Status: image reviewed by me, Preliminary report and final report CT scan - abdomen: Status: image reviewed by me, Preliminary report and final report CT scan - head: Status: image reviewed by me, Preliminary report and final report Assessment and Plan *Assessment and plan (1) Atrial flutter with rapid ventricular response: Status: Acute Category: Medical Code(s): I48.92 - Unspecified atrial flutter (2) Hypomagnesemia: Status: Acute Category: Medical Code(s): E83.42 - Hypomagnesemia (3) Acute hypokalemia: Status: Acute Category: Medical Code(s): E87.6 - Hypokalemia (4) Acute exacerbation of CHF (congestive heart failure): Status: Acute Qualifiers: Heart failure type: unspecified Qualified Code(s): I50.9 - Heart failure, unspecified Category: Medical Code(s): I50.9 - Heart failure, unspecified (5) CHI (closed head injury): Status: Acute Qualifiers: Encounter type: sequela Qualified Code(s): S09.90XS - Unspecified injur y of head, sequela Category: Medical Code(s): S09.90XA - Unspecified injury of head, initial encounter Plan 83-year-old female, with past medical history of A-fib, CAD status post stent on warfarin, HTN, CHF coming to ER for evaluation of chest pain and tachycardia. Patient seen her primary doctor this morning who found her heart rate being under 130, arrhythmic. On arrival patient was seen to be on A-fib with rapid ventricular response, labs are significant for hypomagnesemia. BNP 7220, hemoglobin 10.5. She was started on Cardizem drip after initial bolus. ER called for admission. Discussed case and findings. Agreed for admission. Plan -Afib w/ RVR. rate improved after being on cardizem Hypokalemia hypomagnesemia Admit for continuous cardiac telemetry. Dispo stepdown Cardiology consult Continue Cardizem drip Monitor for heart rhythm Replace electrolyte per protocol. Repeat CBC CMP in the morning Watch for other electrolyte imbalance including sodium Cardiac diet Exacerbation of the CHF. BMP in 7220 Patient on home Lasix Nursing to reconcile and Resume dose -History of closed head injury. Hemorrhagic after fall at home Patient has been off anticoagulant and antiplatelet since . Per chart review it was safe to resume on the 18th after 2-week. Apparently patient has not been able to follow-up with neurology as our primary care. PT/INR is below the therapeutic range. Will refer to cardiology for evaluation of warfarin benefits versus risk SCD for DVT prophylaxis. On Protonix Full code
--- NOTE | 2024-03-02 22:35 | PC.NURSE ---
MED REC UNABLE TO BE COMPLETED D/T PT NOT KNOWING MEDS AND DOES NOT HAVE LIST; SON WILL BRING MED LIST IN AND THEN PHARM CONSULT CAN BE COMPLETED
--- NOTE | 2024-03-02 23:07 | ECG_ITS ---
APPROVED REPORT Exam: Resting ECG HR:66 bpm ECG Measurements Heart Rate 66 AXES TX 156 P 90 QRSd 81 QRS -1 QT 394 T 42 QTc 408 Conclusion SINUS RHYTHM POSSIBLE ANTERIOR MYOCARDIAL INFARCTION , PROBABLY OLD [30 ms Q WAVE IN V3/V4, OR R < 0.2 mV IN V4] BORDERLINE ECG INTERPRETATION BASED ON A DEFAULT AGE OF 39 YEARS UNCONFIRMED REPORT Electronically signed by : MELANIE ALONSO, 03/03/2024 06:01:24
[2024-03-02] MEDS: SIMETHICONE 80MG CHEWABLE TABLET 160 MG PO (23:10)
[2024-03-02] MEDS: dilTIAZem ER 120MG CAPSULE 120 MG PO (23:38)
[2024-03-02] MEDS: ALPRAZolam 0.5MG TABLET 0.25 MG PO (23:52)
[2024-03-03] VITALS (9 sets, daily range): BP systolic 117–149; BP diastolic 44–68; PULSE 60–80; RESP 15–21; TEMP 36.5–37.2; O2SAT 93–99; BMI 24.2
--- NOTE | 2024-03-03 04:01 | PC.NURSE ---
03/02/24: 2301: PT CONVERTED TO NSR 2316: EKG COMPLETED AND CONFIRMED NSR 2318: CLIENT EXPERIENCE CONSULTANT NOTIFIED OF EKG RESULTS AND ORDERED PO DOSE AND CARDIZEM GTT TO BE TURNED OFF 1HR POST ADMIN OF PO CARDIZEM
[2024-03-03 08:45] LABS: Anion Gap 11.5 mEq/L (5-15); Blood Urea Nitrogen 8 mg/dl (7-17); Calcium 8.8 mg/dl (8.4-10.2); Carbon Dioxide 22 mmol/L (22.0-30.0); Chloride 105 mmol/L (98-107); Creatinine Clearance Estimated 41 mL/min (50-200); Estimated Glomerular Filt Rate 95 ml/min (>60); GFR (African American) 115 ML/MIN (>60); Glucose 126 mg/dl (74-100); Potassium 3.5 mmoL/L (3.5-5.1); Sodium 135 mmol/L (136-145)
[2024-03-03 08:53] LABS: Basophils % 0.9 % (0.1-2.0); Eosinophils # 0.1 K/mm3 (0.0-0.4); Hematocrit 34.6 % (37.0-47.0); Lymphocytes # 1.1 K/mm3 (0.7-4.5); Lymphocytes % 26.5 % (10-50); Mean Corpuscular HGB Conc 31.9 g/dL (31.8-35.4); Mean Corpuscular Hemoglobin 37.1 pg (27.0-31.2); Mean Corpuscular Volume 116.4 fl (81-99); Mean Platelet Volume 9.7 fl (7.4-10.4); Monocytes # 0.3 K/mm3 (0.1-1.0); Monocytes % 6.6 % (1.7-9.3); Neutrophils # 2.6 K/mm3 (1.8-7.8); Platelet Count 100 K/mm3 (142-424); Red Blood Count 2.98 M/mm3 (4.20-5.40); White Blood Count 4.2 K/mm3 (4.8-10.8)
[2024-03-03] MEDS: dilTIAZem ER 120MG CAPSULE 120 MG PO (09:26)
[2024-03-03] MEDS: WARFARIN 3MG TABLET 3 MG PO (11:11)
--- NOTE | 2024-03-03 13:28 | EXP.DC.SUM ---
General Admission date:: 03/02/24 Discharge date: 03/03/24 HPI HPI HPI: This is an 83-year-old female, with past medical history of A-fib, CAD status post stent on warfarin, HTN, CHF coming to ER for evaluation of chest pain and tachycardia. Patient seen her primary doctor this morning who found her heart rate being under 130, arrhythmic. Patient was referred to the hospital for evaluation. patient send has been in the nursing facility for the last 6 several weeks, after had a fall at home with significant trauma, with intracranial bleeding. She was hospitalized at the [facility] where she is required management. She was complaining of ongoing swelling of her bilateral lower extremity headache and dizziness. Patient is ongoing treatment for reported UTI. Admitted for further treatment and management. Hospital Course Hospital Course Hospital Course: 83-year-old female, with past medical history of A-fib, CAD status post stent on warfarin, HTN, CHF coming to ER for evaluation of chest pain and tachycardia. Patient seen her primary doctor this morning who found her heart rate being under 130, arrhythmic. On arrival patient was seen to be on A-fib with rapid ventricular response, labs are significant for hypomagnesemia. BNP 7220, hemoglobin 10.5. She was started on Cardizem drip after initial bolus. Afib RVR resolved, now in rate controle, patient denied any SOB at DC, she has been walking with assistance which is baseline, patient is ok to resume on couamdin, CT head is negative for any new bleeds and shows resolution of previous bleeds. f/u give with cardiology as OP, patient was also dsicharged on oral abx for UTI. Exam Data for Last 24 hours Vital signs and Labs for Last 24 Hours: Temp Pulse Resp BP Pulse Ox O2 Del Method O2 Flow Rate 98.9 F 75 19 139/68 93 L Room Air 2 03/03/24 11:31 03/03/24 10:00 03/03/24 10:00 03/03/24 10:00 03/03/24 10:00 03/03/24 13:00 03/03/24 08:00 Laboratory Results - last 24 hr 03/02/24 12:41: PT 11.9, INR 1.11 H, Sodium 131 L, Potassium 4.4, Chloride 104, Carbon Dioxide 21 L, Anion Gap 10.4, BUN 11, Creatinine 0.70, Estimated Creat Clear 37, Estimated GFR 80, Est GFR ( Amer) 96, Glucose 94, Calcium 9.3, Magnesium 0.8 L, Total Bilirubin 1.1, AST 60 H, ALT 31, Alkaline Phosphatase 70, Troponin I 0.03, NT-Pro-B Natriuret Pep 7220 H, Total Protein 6.8, Albumin 3.8, Globulin 3.0, Albumin/Globulin Ratio 1.3 03/02/24 13:08: Urine Color Yellow, Urine Appearance Clear, Urine pH 5.5, Ur Specific [place] <= 1.005, Urine Protein Negative, Urine Glucose (UA) Negative, Urine Ketones Negative, Urine Blood Negative, Urine Nitrate Negative, Urine Bilirubin Negative, Urine Urobilinogen 0.2, Ur Leukocyte Esterase Negative, Urine RBC None, Urine WBC 3-5, Ur Squamous Epith Cells 5-10, Urine Bacteria Trace 03/02/24 13:30: WBC 5.5, RBC 2.80 L, Hgb 10.5 L, Hct 31.6 L, MCV 112.7 H, MCH 37.5 H, MCHC 33.2, RDW 15.5, Plt Count 126 L, MPV 8.0, Neut % (Auto) 63.5, Lymph % (Auto) 28.4, O[place]Brien % (Auto) 5.6, Eos % (Auto) 2.1, Baso % (Auto) 0.4, Neut # (Auto) 3.5, Lymph # (Auto) 1.6, O[place]Brien # (Auto) 0.3, Eos # (Auto) 0.1, Baso # (Auto) 0.0 03/02/24 16:03: Troponin I 0.02 03/03/24 07:43: WBC 4.2 L, RBC 2.98 L, Hgb 11.0 L, Hct 34.6 L, MCV 116.4 H, MCH 37.1 H, MCHC 31.9, RDW 16.0, Plt Count 100 L, MPV 9.7, Neut % (Auto) 63.0, Lymph % (Auto) 26.5, O'Brien % (Auto) 6.6, Eos % (Auto) 3.0, Baso % (Auto) 0.9, Neut # (Auto) 2.6, Lymph # (Auto) 1.1, O'Brien # (Auto) 0.3, Eos # (Auto) 0.1, Baso # (Auto) 0.0, Sodium 135 L, Potassium 3.5 D, Chloride 105, Carbon Dioxide 22, Anion Gap 11.5, BUN 8 D, Creatinine 0.60, Estimated Creat Clear 41, Estimated GFR 95, Est GFR ( Amer) 115, Glucose 126 H D, Calcium 8.8 I & O for Last 24 hours: Intake & Output 02/29/24 03/01/24 03/02/24 03/03/24 23:59 23:59 23:59 23:59 Intake Total 62.000 / 107.000 318.958 / 318.958 Output Total 250 / 250 0 / 0 Balance -188.000 / -143.000 318.958 / 318.958 Weight 61.944 kg 61.955 kg Constitutional Constitutional: no acute distress *Routine HEENT Exam Head: Present normocephalic Eye: Present EOMI and PERRL ENT: Present mucous membranes moist *Routine Neck Exam Neck: Present supple; Absent lymphadenopathy *Routine Respiratory Exam Respiratory: Present CTA bilaterally *Routine Cardiovascular Exam Cardiovascular: Present RRR *Routine Abdominal Exam Abdominal: Present soft and normoactive bowel sounds; Absent tenderness *Routine Extremities Exam Extremities: Absent cyanosis, clubbing or edema *Routine Skin Exam Skin: Present warm; Absent rash *Routine Neurological Exam Neurological: Present alert and oriented X3 Results Data Completed and Pending Labs on day of discharge: Labs from last 24 hours 03/03/24 03/02/24 03/02/24 07:43 16:03 13:30 WBC 4.2 L 5.5 RBC 2.98 L 2.80 L Hgb 11.0 L 10.5 L Hct 34.6 L 31.6 L MCV 116.4 H 112.7 H MCH 37.1 H 37.5 H MCHC 31.9 33.2 RDW 16.0 15.5 Plt Count 100 L 126 L MPV 9.7 8.0 Neut % (Auto) 63.0 63.5 Lymph % (Auto) 26.5 28.4 O'Brien % (Auto) 6.6 5.6 Eos % (Auto) 3.0 2.1 Baso % (Auto) 0.9 0.4 Neut # (Auto) 2.6 3.5 Lymph # (Auto) 1.1 1.6 O'Brien # (Auto) 0.3 0.3 Eos # (Auto) 0.1 0.1 Baso # (Auto) 0.0 0.0 PT INR Sodium 135 L Potassium 3.5 D Chloride 105 Carbon Dioxide 22 Anion Gap 11.5 BUN 8 D Creatinine 0.60 Estimated Creat Clear 41 Estimated GFR 95 Est GFR ( Amer) 115 Glucose 126 H D Calcium 8.8 Magnesium Total Bilirubin AST ALT Alkaline Phosphatase Troponin I 0.02 NT-Pro-B Natriuret Pep Total Protein Albumin Globulin Albumin/Globulin Ratio Urine Color Urine Appearance Urine pH Ur Specific [place] Urine Protein Urine Glucose (UA) Urine Ketones Urine Blood Urine Nitrate Urine Bilirubin Urine Urobilinogen Ur Leukocyte Esterase Urine RBC Urine WBC Ur Squamous Epith Cells Urine Bacteria 03/02/24 03/02/24 13:08 12:41 WBC RBC Hgb Hct MCV MCH MCHC RDW Plt Count MPV Neut % (Auto) Lymph % (Auto) O[place]Brien % (Auto) Eos % (Auto) Baso % (Auto) Neut # (Auto) Lymph # (Auto) O[place]Brien # (Auto) Eos # (Auto) Baso # (Auto) PT 11.9 INR 1.11 H Sodium 131 L Potassium 4.4 Chloride 104 Carbon Dioxide 21 L Anion Gap 10.4 BUN 11 Creatinine 0.70 Estimated Creat Clear 37 Estimated GFR 80 Est GFR ( Amer) 96 Glucose 94 Calcium 9.3 Magnesium 0.8 L Total Bilirubin 1.1 AST 60 H ALT 31 Alkaline Phosphatase 70 Troponin I 0.03 NT-Pro-B Natriuret Pep 7220 H Total Protein 6.8 Albumin 3.8 Globulin 3.0 Albumin/Globulin Ratio 1.3 Urine Color Yellow Urine Appearance Clear Urine pH 5.5 Ur Specific [place] <= 1.005 Urine Protein Negative Urine Glucose (UA) Negative Urine Ketones Negative Urine Blood Negative Urine Nitrate Negative Urine Bilirubin Negative Urine Urobilinogen 0.2 Ur Leukocyte Esterase Negative Urine RBC None Urine WBC 3-5 Ur Squamous Epith Cells 5-10 Urine Bacteria Trace DS: Diagnosis Discharge Diagnosis (1) Atrial flutter with rapid ventricular response: Status: Acute Code(s): I48.92 - Unspecified atrial flutter (2) Hypomagnesemia: Status: Acute Code(s): E83.42 - Hypomagnesemia (3) Acute hypokalemia: Status: Acute Code(s): E87.6 - Hypokalemia (4) Acute exacerbation of CHF (congestive heart failure): Status: Acute Code(s): I50.9 - Heart failure, unspecified Qualifiers: Heart failure type: unspecified Qualified Code(s): I50.9 - Heart failure, unspecified (5) CHI (closed head injury): Status: Acute Code(s): S09.90XA - Unspecified injury of head, initial encounter Qualifiers: Encounter type: sequela Qualified Code(s): S09.90XS - Unspecified injury of head, sequela Meds Home Medications and Allergies Home Medications Medication Instructions Recorded Confirmed Type alprazolam 0.5 mg tablet 0.5 mg PO HS 30 days #15 tabs 12/25/18 03/03/24 History aspirin 81 mg chewable tablet 81 mg PO DAILY 12/25/18 05/27/20 History atorvastatin 80 mg tablet 80 mg PO DAILY 90 days #90 tabs 12/25/18 05/27/20 History brimonidine 0.2 %-timolol 0.5 % ophthalmic (eye) 37 days 12/25/18 05/27/20 History eye drops difluprednate 0.05 % eye drops ophthalmic (eye) 25 days 12/25/18 05/27/20 History dorzolamide 2 % eye drops ophthalmic (eye) 37 days 12/25/18 05/27/20 History hydralazine 10 mg tablet 10 mg PO BID 90 days #180 tabs 12/25/18 05/27/20 History metformin 500 mg tablet,extended 500 mg PO BID 90 days #180 tabs 12/25/18 05/27/20 History release 24 hr omeprazole 40 mg capsule,delayed 40 mg PO DAILY 30 days #30 caps 12/25/18 05/27/20 History release ranolazine 500 mg tablet,extended 1,000 mg PO BID 30 days #120 tabs 12/25/18 05/27/20 History release,12 hr valsartan 160 mg tablet 160 mg PO DAILY 30 days #30 tabs 12/25/18 05/27/20 History carvedilol 6.25 mg tablet 6.25 mg PO Q8H 05/12/20 05/27/20 History warfarin 2 mg tablet 2 mg PO .COMPLEX 05/12/20 05/27/20 History warfarin 2.5 mg tablet (Coumadin) 1.5 mg PO .COMPLEX 05/12/20 05/27/20 History duloxetine 60 mg capsule,delayed 60 mg PO DAILY 30 days #30 caps 05/27/20 05/27/20 Rx release nystatin-triamcinolone 100,000 1 applic topical DAILY #30 grams 07/15/21 Rx unit/gram-0.1 % topical ointment diltiazem HCl 120 mg 120 mg PO DAILY 14 days #14 caps 03/03/24 Rx capsule,extended release 24 hr levofloxacin 750 mg tablet 750 mg PO DAILY 30 days #30 tabs 03/03/24 Rx New Prescriptions to Start Prescriptions: diltiazem HCl Evelin Serrato levofloxacin Evelin Serrato Allergies Allergy/AdvReac Type Severity Reaction Status Date / Time nitrofurantoin Allergy Intermediate Rash Verified 03/02/24 16:03 [From Macrodantin] morphine Allergy Unknown Unknown Verified 03/02/24 16:03 allergy reaction Discharge Plan Disposition Patient Disposition: [facility] Condition: Good Discharge Order Discharge Orders: Discharge Order (Routine); Ordered 03/03/24 Ordered By: Evelin Serrato Follow up Plan Follow up with: Jovanni Mendoza PA [Physician [employer]] - 1 week Prescriptions/Medication Reconciliation: New diltiazem HCl 120 mg Capsule,Extended Release 24hr 120 mg PO DAILY 14 Days Qty: 14 0RF levofloxacin 750 mg tablet 750 mg PO DAILY 30 Days Qty: 30 0RF Continued warfarin 2 mg tablet 2 mg PO .COMPLEX Rx Instructions: 2 mg PO tues,thus,sun; warfarin [Coumadin] 2.5 mg tablet 1.5 mg PO .COMPLEX Rx Instructions: 1.5 mg PO mon,wed,fri,,sat; on odd numbered days carvedilol 6.25 mg tablet 6.25 mg PO Q8H Rx Instructions: must administer with a meal/food valsartan 160 mg tablet 160 mg PO DAILY 30 Days Qty: 30 ranolazine 500 mg tablet extended release 12 hr 1,000 mg PO BID 30 Days Qty: 120 omeprazole 40 mg capsule,delayed release(DR/EC) 40 mg PO DAILY 30 Days Qty: 30 metformin 500 mg tablet extended release 24 hr 500 mg PO BID 90 Days Qty: 180 alprazolam 0.5 mg tablet 0.5 mg PO HS 30 Days Qty: 15 atorvastatin 80 mg tablet 80 mg PO DAILY 90 Days Qty: 90 dorzolamide 2 % drops OPHTHALMIC 37 Days difluprednate 0.05 % drops OPHTHALMIC 25 Days brimonidine-timolol 0.2-0.5 % drops OPHTHALMIC 37 Days hydralazine 10 mg tablet 10 mg PO BID 90 Days Qty: 180 aspirin 81 mg tablet,chewable 81 mg PO DAILY duloxetine 60 mg capsule,delayed release(DR/EC) 60 mg PO DAILY 30 Days Qty: 30 2RF nystatin-triamcinolone 100,000-0.1 unit/gram-% ointment 1 applic TOPICAL DAILY Qty: 30 3RF Discontinued amlodipine 10 mg tablet 10 mg PO DAILY Problem Reconciliation Problems Reviewed?: Yes Patient Discharge Instructions ACTIVITY: Ambulate as tolerated DIET: continue same diet Patient Instructions: DI for Atrial Fibrillation, DI for Urinary Tract Infection (UTI), DI for Hypomagnesemia, DI for Heart Failure Exacerbations Providers Primary Care Provider: Jay Howell Admit Provider: Evelin Serrato Attending Provider: Evelin Serrato
--- NOTE | 2024-03-05 09:05 | SW/DCPLANNER ---
This patient is currently SNF level of care at [facility] per Amrita.
== END 2024-03-03 15:28 | DRG 309 ==
LOC: ER 17:51 → 2ND 18:04
PROVIDERS: Emergency Medicine; Admitting Provider Internal Medicine; Emergency Provider Emergency Medicine; PCP Emergency Medicine; Visit Provider Internal Medicine
DX: I48.92 Unspecified atrial flutter (principal); I25.811 Atherosclerosis of native coronary artery of transplanted heart without angina pectoris; N39.0 Urinary tract infection, site not specified; E83.42 Hypomagnesemia; E87.6 Hypokalemia; I11.0 Hypertensive heart disease with heart failure; I50.9 Heart failure, unspecified; Z95.5 Presence of coronary angioplasty implant and graft; Z79.01 Long term (current) use of anticoagulants; Z95.1 Presence of aortocoronary bypass graft; J43.9 Emphysema, unspecified; G47.30 Sleep apnea, unspecified
CPT/HCPCS: 36415; 70450; 71275; 74174; 80048; 80053; 81001; 83735; 83880; 84484; 85025; 85610; 87086; 93005; 99291; J0696; J3475; Q9967

== ENCOUNTER 2024-05-18 08:37 | Observation (INO) | payer MEDICARE, SELFPAY ==
[2024-05-18] VITALS (9 sets, daily range): BP systolic 134–196; BP diastolic 81–129; PULSE 78–146; RESP 14–21; TEMP 36.5–36.8; O2SAT 96–98; BMI 24.1; BMI 23.3
--- NOTE | 2024-05-18 08:39 | ECG_ITS ---
APPROVED REPORT Exam: Resting ECG HR:140 bpm ECG Measurements Heart Rate 140 AXES QRSd 82 QRS 22 QT 291 T 25 QTc 372 Conclusion A-fib RVR Electronically signed by : MEG ARRIAZA, 05/18/2024 13:23:54
--- NOTE | 2024-05-18 08:43 | XR_ITS ---
FINAL REPORT CLINICAL HISTORY: soa afib rvr cp COMPARISON: 12/30/2023 FINDINGS: SINGLE-VIEW CHEST There is mild cardiomegaly. Patient is status post median sternotomy. There are small bilateral pleural effusions, right greater than left with mild bibasilar atelectasis. There is no pneumothorax. IMPRESSION: Bilateral pleural effusions with bibasilar atelectasis. Reviewed, Interpreted and Dictated by Dustin Penny MD Transcribed by Keyana Veras Authenticated and [facility]
[2024-05-18] MEDS: ASPIRIN 81MG CHEWABLE TABLET 324 MG PO (08:47)
--- NOTE | 2024-05-18 08:47 | PC.NURSE ---
RAD at for CXR
[2024-05-18] MEDS: METOPROLOL TARTRATE 5MG/5ML VIAL 5 MG IV (08:48)
[2024-05-18 08:53] LABS: VBG HCO3 20.1 mmol/L (23-30); VBG Oxygen Saturation 84.5 % (50-70); VBG PH 7.44 mmol/L (7.31-7.41); VBG PO2 49.7 mmol/L (28-40)
[2024-05-18 08:54] LABS: Basophils % 0.5 % (0.1-2.0); Eosinophils # 0.1 K/mm3 (0.0-0.4); Eosinophils % 1.8 % (0.1-12.0); Hematocrit 37.7 % (37.0-47.0); Hemoglobin 12.2 g/dL (12.2-16.2); Lymphocytes # 1.4 K/mm3 (0.7-4.5); Lymphocytes % 25.1 % (10-50); Mean Corpuscular HGB Conc 32.3 g/dL (31.8-35.4); Mean Corpuscular Hemoglobin 35.2 pg (27.0-31.2); Mean Platelet Volume 9.9 fl (7.4-10.4); Monocytes # 0.3 K/mm3 (0.1-1.0); Neutrophils # 3.6 K/mm3 (1.8-7.8); Neutrophils % 66.5 % (37.0-80.0); Platelet Count 80 K/mm3 (142-424); Red Blood Count 3.46 M/mm3 (4.20-5.40); Red Cell Distribution Width 15.9 % (11.5-17.5); White Blood Count 5.4 K/mm3 (4.8-10.8)
--- NOTE | 2024-05-18 08:58 | PC.NURSE ---
DR ARRIAZA AT BEDSIDE
--- OUTSIDE RECORDS SUMMARY | 2024-05-18 08:59 | XMS_ITS | Clinical Summary ---
Author Organization [facility] Address [address] [place] [address] Phone Care Team Providers Care Esol Teacher Assistant Name Role Phone Smita ESCOBEDO, Jorje Arceo [phone] [ ] Conditions or Problems Problem Name Problem Code Onset Date Status Entry Date Provider Comment Standard Description Annotate Contusion of left lower leg, subsequent encounter(s) S80.12xD (ICD-10-CM) Active Arlen Feng Contusion of left lower leg, subsequent encounter Cellulitis of LLE L03.116 (ICD-10-CM) Active Arlen Feng Cellulitis of left lower limb DM II with diabetic PVD [id number] (SNOMED CT) Active Arlen Feng Peripheral vascular disease Benign Essential Hypertension [id number] (SNOMED CT) Active Arlen Feng Benign essential hypertension Medications Medication Instructions Start Date Stop Date Generic Name [facility] Provider VALSARTAN 160 MG TABS 1 tablet po daily VALSARTAN [id number] Leti Dela Cruz ALPRAZOLAM 0.5 MG TABS Take one by mouth daily/PRN ALPRAZOLAM 59703511254 Lexi Nascimentodox VIBRAMYCIN 100 MG CAPS Take by mouth twice a day DOXYCYCLINE HYCLATE 22473089502 Lexi Gipson TERBINAFINE HCL 250 MG TABS Take one by mouth daily TERBINAFINE HCL 56831915868 Lexi Gipson RANEXA 1000 MG ORAL TABLET EXTENDED RELEASE 12 HOUR Take by mouth twice a day RANOLAZINE 51012443836 Lexi Gipson CLOPIDOGREL BISULFATE 75 MG TABS Take one by mouth daily CLOPIDOGREL BISULFATE 35397653912 Lexi Nascimentodox OMEPRAZOLE 40 MG CPDR Take one by mouth daily OMEPRAZOLE 57457483767 Lexi Nascimentodox NORVASC 10 MG TABS Take one by mouth daily AMLODIPINE BESYLATE 39567177078 Lexi Gipson HYDROCODONE-ACET AMINOPHEN 7.5-325 MG TABS Q6H/PRN HYDROCODONE-ACET AMINOPHEN 13987472624 Lexi Nascimentodox DAILY MULTIVITAMIN CAPS Take one by mouth daily MULTIPLE VITAMINS-MINERAL S 72163441624 Lexi Gipson METFORMIN HCL 500 MG TABS Take by mouth twice a day METFORMIN HCL 61517763284 Lexi Gipson LOVENOX 60 MG/0.6ML SUBCUTANEOUS SOLUTION 70 mg, SubCutaneous, Q12H ENOXAPARIN SODIUM 57509717711 Lexi Gipson LOSARTAN POTASSIUM 100 MG TABS Take one by mouth daily LOSARTAN POTASSIUM 29022005573 Lexi Nascimentodox ACIDOPHILUS LACTOBACILLUS CAPS Take two by mouth daily LACTOBACILLUS 12507147661 Lexi Gipson HYDRALAZINE HCL 50 MG TABS 2 Tab, Oral, BID HYDRALAZINE HCL 12887916609 Lexi Gipson DORZOLAMIDE HCL 2 % SOLN 1 Drop, Eye Right, BID DORZOLAMIDE HCL 04688718569 Lexi Gipson WARFARIN SODIUM 3 MG TABS Take one by mouth daily WARFARIN SODIUM 02711453639 Lexi Nascimentodox CARVEDILOL 6.25 MG TABS Take one by mouth 3 times daily, morning, afternoon and evening. CARVEDILOL 17437358092 Lexi Nascimentodox ATORVASTATIN CALCIUM 80 MG TABS Take one by mouth daily ATORVASTATIN CALCIUM 54238381277 Lexi Gipson AMOXICILLIN-POT CLAVULANATE 875-125 MG TABS Take by mouth twice a day AMOXICILLIN-POT CLAVULANATE 59794615283 Lexi Gipson Medications Administered No information available. [...]
--- OUTSIDE RECORDS SUMMARY | 2024-05-18 08:59 | XMS_ITS | Continuity of Care Document ---
Author Organization [facility] Phone Care Team Providers Care Assembler Name Role Phone JAVON, OMAR E Unavailable Unavailable CARLYLE RIBERAATUNDE O Primary Care JAVON, OMAR E Admitting Unavailable JAVON, OMAR E Primary Attending Unavailable ALLERGIES AND ADVERSE REACTIONS ALLERGIES AND ADVERSE REACTIONS Code System Allergy Substance Adverse Reaction Date Reaction (Severity) Comment Status Reported By Updated By 7454 RXNorm MACRODANTIN Rash Adverse reaction to substance mouth swells active [id number] on March 08, 2024 12:31:35 AM [facility] 7052 RXNorm MORPHINE Adverse reaction to substance pain active [id number] on March 08, 2024 12:31:35 AM [facility] FAMILY HISTORY RELATION: Father [...] of : December 23 LABORATORY RESULTS ORDER 200: CBC AUTO W DIFF ( LOINC: 37414-8) ORDER DATE: March 08, 2024 12:56:00 AM UTC Specimen Source: Whole Blood Specimen Type: Whole blood s ample PERFORMING LAB: [address] [id number] Result Comment: Final Result Date: March 08, 2024 1:38:00 AM UTC (TECH: [employer]) LOINC TEST FLAG RESULT REFERENCE RANGE UPDA JACEK BY 6690-2 Leukocytes [#/volume] in Blood by Automated count L 4.2 10^3/uL 4.5 10^3/uL - 11.5 10^3/uL March 08, 2024 1:38:00 AM UTC (TECH: [employer]) 789-8 Erythrocytes [#/volume] in Blood by Automated count L 2.45 10^6/uL 4.25 10^6/uL - 5.57 10^6/uL March 08, 2024 1:38:00 AM UTC (TECH: [employer]) 718-7 Hemoglobin [Mass/volume] in Blood L 8.9 g/dL 12.0 g/dL - 15.7 g/dL March 08, 2024 1:38:00 AM UTC (TECH: [employer]) 97152-2 Hematocrit [Volume Fraction] of Blood L 26.8 % 36.0 % - 47.0 % March 08, 2024 1:38:00 AM UTC (TECH: [employer]) 787-2 Erythrocyte mean corpuscular volume [Entitic volume] by Automated count H 109.4 fl 80 fl - 95 fl March 08, 2024 1:38:00 AM UTC (TECH: [employer]) 52858-7 Erythrocyte mean corpuscular hemoglobin [Entitic mass] in Blood from Fetus by Automated count H 36.3 pg 27.0 pg - 34.0 pg March 08, 2024 1:38:00 AM UTC (TECH: [facility]) 97950-1 Erythrocyte mean corpuscular hemoglobin concentration [Mass/volume] in Blood from Fetus by Automated count N 33.2 g/dL 32.0 g/dL - 36.0 g/dL March 08, 2024 1:38:00 AM UTC (TECH: [employer]) 73906-8 Platelets [#/volume] in Blood L 93 10^3/uL 150 10^3/uL - 450 10^3/uL March 08, 2024 1:38:00 AM UTC (TECH: [employer]) 16015-5 Erythrocyte distribution width [Ratio] N 13.5 % 12.3 % - 15.1 % March 08, 2024 1:38:00 AM UTC (TECH: [facility] [facility]) 65871-1 Platelet mean volume [Entitic volume] in Blood by Automated count H 10.8 fl 7.4 fl - 10.4 fl March 08, 2024 1:38:00 AM UTC (TECH: [employer]) 92544-3 Granulocytes/100 leukocytes in Blood by Automated count N 60.0 % 40 % - 75 % March 08, 2024 1:38:00 AM UTC (TECH: [facility]) 736-9 Lymphocytes/100 leukocytes in Blood by Automated count N 26.7 % 15 % - 57 % March 08, 2024 1:38:00 AM UTC (TECH: [facility]) 5905-5 Monocytes/100 leukocytes in Blood by Automated count H 12.3 % 4.0 % - 12.0 % March 08, 2024 1:38:00 AM UTC (TECH: [employer]) 713-8 Eosinophils/100 leukocytes in Blood by Automated count N 0.0 % 0.0 % - 4.0 % March 08, 2024 1:38:00 AM UTC (TECH: [employer]) 706-2 Basophils/100 leukocytes in Blood by Automated count N 0.5 % 0.0 % - 1.0 % March 08, 2024 1:38:00 AM UTC (TECH: [employer]) 34658-1 Immature granulocytes [#/volume] in Blood N 0.5 % 0.0 % - 0.8 % March 08, 2024 1:38:00 AM UTC (TECH: [facility] [facility]) 88250-7 Granulocytes [#/volume] in Blood by Automated count N 2.50 10^3/uL March 08, 2024 1:38:00 AM UTC (TECH: [facility]) 731-0 Lymphocytes [#/volume] in Blood by Automated count N 1.11 10^3/uL March 08, 2024 1:38:00 AM UTC (TECH: [employer]) 742-7 Monocytes [#/volume] in Blood by Automated count N 0.51 10^3/uL March 08, 2024 1:38:00 AM UTC (TECH: [facility]) 711-2 Eosinophils [#/volume] in Blood by Automated count N 0.00 10^3/uL March 08, 2024 1:38:00 AM [place] (TECH: [facility] [facility]) 704-7 Basophils [#/volume] in Blood by Automated count N 0.02 10^3/uL March 08, 2024 1:38:00 AM [place] (TECH: [facility]) 68170-5 Immature granulocytes [#/volume] in Blood N 0.02 10^3/uL March 08, 2024 1:38:00 AM [place] (TECH: [facility]) 17876-5 Manual differential performed [Presence] in Blood N NO March 08, 2024 1:38:00 AM UT (TECH: [facility]) ORDER 300: COMP METABOLIC PA JEROME (LOINC: 61009-0) ORDER DATE: March 08, 2024 12:56:00 AM UT Specimen Source: Serum/Plasm a Specimen Type: Acellular blo od (serum or plasma) specimen PERFORMING LAB: [address] [id number] Result Comment: Final Result Date: March 08, 2024 1:59:00 AM UT (TECH: [facility]) LOINC TEST FLAG RESULT REFERENCE RANGE UPDA JACEK BY 2951-2 Sodium [Moles/volume ] in Serum or Plasma N 140 mmol/L 136 mmol/L - 145 mmol/L March 08, 2024 1:59:00 AM UT (TECH: [facility]) 2823-3 Potassium [Moles/volume] in Serum or Plasma N 3.8 mmol/L 3.5 mmol/L - 5.1 mmol/L March 08, 2024 1:59:00 AM UT (TECH: [facility] [facility]) 2075-0 Chloride [Moles/volu me] in Serum or Plasma N 105 mmol/L 98 mmol/L - 107 mmol/L March 08, 2024 1:59:00 AM UT (TECH: [facility]) 8-9 Carbon dioxide, tota l [Moles/volume] in Serum or Plasma N 26 mmol/L 21 mmol/L - 32 mmol/L March 08, 2024 1:59:00 AM UT (TECH: [employer]) 94574-3 Anion gap 3 in Serum or Plasma N 9.0 March 08, 2024 1:59:00 AM UT (TECH: [facility] [facility]) 2345-7 Glucose [Mass/volume ] in Serum or Plasma H 197 mg/dL 70 mg/dL - 110 mg/dL March 08, 2024 1:59:00 AM UT (TECH: [facility]) 3094-0 Urea nitrogen [Mass/volume] in Serum or Plasma N 9 mg/dL 7 mg/dL - 18 mg/dL March 08, 2024 1:59:00 AM UT (TECH: [employer]) 2160-0 Creatinine [Mass/volume] in Serum or Plasma N 0.9 mg/dL 0.6 mg/dL - 1.0 mg/dL March 08, 2024 1:59:00 AM UT (TECH: [employer] [facility]) 3097-3 Urea nitrogen/Creatinine [Mass Ratio] in Serum or Plasma N 10.0 Ratio 9 Ratio - 21 Ratio March 08, 2024 1:59:00 AM [facility] ([employer]: [employer]) 20756-2 Glomerular filtratio n rate/1.73 sq M.predicted by Creatinine-based formula (MDRD) N 63 mL/min >60 March 08, 2024 1:59:00 AM [facility] (TECH: [employer]) 2885-2 Protein [Mass/volume ] in Serum or Plasma L 5.8 g/dL 6.4 g/dL - 8.2 g/dL March 08, 2024 1:59:00 AM UT ([employer]: [facility]) 1751-7 Albumin [Mass/volume ] in Serum or Plasma L 2.9 g/dL 3.4 g/dL - 5.0 g/dL March 08, 2024 1:59:00 AM UT ([employer]: [facility]) 94763-1 Calcium [Mass/volume ] in Serum or Plasma N 8.9 mg/dL 8.5 mg/dL - 10.1 mg/dL March 08, 2024 1:59:00 AM UT ([employer]: [facility]) 30116-5 Calcium [Mass/volume ] corrected for total protein in Serum or Plasma N 9.8 mg/dL 8.5 mg/dL - 10.1 mg/dL March 08, 2024 1:59:00 AM UT (TECH: [facility]) 1975-2 Bilirubin.total [Mass/volume] in Serum or Plasma N 0.5 mg/dL 0.4 mg/dL - 1.5 mg/dL March 08, 2024 1:59:00 AM UTC (TECH: [employer] [facility]) 1920-8 Aspartate aminotransferase [Enzymatic activity/volume] in Serum or Plasma L 11 U/L 15 U/L - 37 U/L March 08, 2024 1:59:00 AM UTC (TECH: [facility]) 1742-6 Alanine aminotransferase [Enzymatic activity/volume] in Serum or Plasma N 24 U/L 12 U/L - 78 U/L March 08, 2024 1:59:00 AM UTC (TECH: [employer]) 6768-6 Alkaline phosphatase [Enzymatic activity/volume] in Serum or Plasma N 69 U/L 53 U/L - 141 U/L March 08, 2024 1:59:00 AM UTC (TECH: [facility]) ORDER 400: UA AND MICRO/CULT IF INDICATED (LOINC: 98297-0) ORDER DATE: March 08, 2024 12:56:00 AM UTC Specimen Source: URINE Specimen Type: Urine specime n PERFORMING LAB: [address] [id number] Result Comment: Final Result Date: March 08, 2024 2:24:00 AM UTC (TECH: [facility]) LOINC TEST FLAG RESULT REFERENCE RANGE UPDA JACEK BY 5778-6 Color of Urine N YELLOW YELLOW February 152023 2:24:00 AM UTC (TECH: [facility]) 5767-9 Appearance of Urine N CLEAR CLEAR March 08, 2024 2:24:00 AM UTC (TECH: [facility]) 5792-7 Glucose [Mass/volume] in Urine by Test strip N NORM NORMAL March 08, 2024 2:24:00 AM UTC (TECH: [facility] [facility]) 65041-7 Bilirubin.total [Mass/volume] in Urine by Automated test strip N NEGATIVE NEGATIVE March 08, 2024 2:24:00 AM UTC (TECH: [facility] [facility]) 5797-6 Ketones [Mass/volume] in Urine by Test strip N NEGATIVE NEGATIVE March 08, 2024 2:24:00 AM UTC (TECH: [facility] [facility]) 2965-2 Specific gravity of Urine N 1.010 1.005 - 1.035 March 08, 2024 2:24:00 AM UTC (TECH: [facility] [facility]) 25635-0 Erythrocytes [#/volume] in Urine by Automated test strip N NEGATIVE NEGATIVE March 08, 2024 2:24:00 AM UT (TECH: [facility]) 88418-5 pH of Urine by Automated test strip N 6.00 5.0 - 7.5 March 08, 2024 2:24:00 AM UTC (TECH: [facility]) 40577-2 Protein [Presence] in Urine by Test strip N 100 (2+) mg/dL NEGATIVE March 08, 2024 2:24:00 AM UTC (TECH: [facility]) 66055-6 Urobilinogen [Mass/volume] in Urine by Automated test strip N NORM NORMAL March 08, 2024 2:24:00 AM UTC (TECH: [facility]) 98315-1 Nitrate [Presence] in Urine N NEGATIVE NEGATIVE March 08, 2024 2:24:00 AM UTC (TECH: [facility]) 33980-7 Leukocytes [#/volume] in Urine by Test strip N NEGATIVE NEGATIVE March 08, 2024 2:24:00 AM UT (TECH: [facility]) 75092-4 Other elements in Urine sediment N NOT REQUIRED March 08, 2024 2:24:00 AM UT (TECH: [facility]) 49628-3 Microscopic observation [Identifier] in Urine sediment by Light microscopy N YES March 08, 2024 2:24:00 AM UT (TECH: [facility]) 35173-6 Erythrocytes [#/area] in Urine sediment by Microscopy high power field N NONE SEEN 0-3 March 08, 2024 2:24:00 AM UT (TECH: [facility] [facility]) 5821-4 Leukocytes [#/area] in Urine sediment by Microscopy high power field N 1-5 NONE SEEN March 08, 2024 2:24:00 AM UT (TECH: [facility]) 72473-7 Epithelial cells.squamous [#/area] in Urine sediment by Microscopy high power field >30 NONE SEEN March 08, 2024 2:24:00 AM UT (TECH: [facility]) 5769-5 Bacteria [#/area] in Urine sediment by Microscopy high power field N NONE SEEN NONE SEEN March 08, 2024 2:24:00 AM UT (TECH: [facility]) ORDER 500: TROPONIN QUANT (L OINC: 62381-3) ORDER DATE: March 08, 2024 1:27:00 AM UTC Specimen Source: Plasma Specimen Type: Plasma specim en PERFORMING LAB: [address] [id number] Result Comment: Final Result Date: March 08, 2024 1:59:00 AM [facility] (TECH: [employer]) LOINC TEST [place] [address]-3 Troponin I.cardiac p marycarmen - Serum or Plasma by High sensitivity method N 20 ng/L 0 ng/L - 51 ng/L March 08, 2024 1:59:00 AM [facility] (TECH: RJV) LABORATORY NARRATIVE RESULTS Information is not available RADIOLOGY RESULTS ORDER 100: CT BRAIN HEAD WO (LOINC: 53540-6) ORDER DATE: March 08, 2024 12:55:00 AM [facility] PERFORMING LAB: [address] [id number] Final Result Date: March 08 1:48:[address] [place] [address] Name: SKYLER BAUTISTA Exam Date: 03/07/2024 : 1940 Age 83 years Gender: F Physician: Facility: [facility] Facility HSV: Outpatient Exam: CT BRAIN HEAD WO FINAL REPORT TECHNIQUE: null CLINICAL HISTORY: Dizziness, pt stated she has vertigo, lost balance and fell, striking post. scalp, no LOC, A & O x 3 with complaint only vertigo at present, hx brain bleed in January 2024 secondary to fall, hx blood coagulation disorder, diabetes, gastro reflux ds, heart ds, shingles, high bp, pulmonary emphysema, seizure, renal cysts COMPARISON: null FINDINGS: CT head without contrast Comparison: CT/SR - CT BRAIN HEAD WO - 01/20/2024 04:43 PM EDT Findings: New parenchymal hypodensity in the left frontal lobe extending to the cortex. 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 Previous left subarachnoid hemorrhage is resolved. No midline shift or hydrocephalus. Mild periventricular hypodensity may relate to chronic small vessel ischemic changes. Mild generalized atrophy. Fluid in the right sphenoid sinus. Mastoid air cells are clear. The orbits are within normal limits. No skull fracture. IMPRESSION: IMPRESSION: 1. Findings suspicious for infarct in the left frontal lobe, new since 01/20/2024. 2. Previous left intracranial bleed is resolved. Authenticated and [facility] Dictated By: Jeferson Medina Transcribed By: Transcribed On: 03/07/2024 9:45 PM Electronically signed by: Jeferson Medina 03/07/2024 Thank you for referring SKYLER BAUTISTA to [facility]. Legally authenticated by LAURA COSTELLO MD 2024-03-07 21:45:[address] [place] [address] Name: SKYLER BAUTISTA Exam Date: 03/07/2024 : 1940 Age 83 years Gender: F Physician: Facility: [facility] Facility HSV: Outpatient Exam: CT BRAIN HEAD WO FINAL REPORT TECHNIQUE: null CLINICAL HISTORY: Dizziness, pt stated she has vertigo, lost balance and fell, striking post. scalp, no LOC, A & O x 3 with complaint only vertigo at present, hx brain bleed in January 2024 secondary to fall, hx blood coagulation disorder, diabetes, gastro reflux ds, heart ds, shingles, high bp, pulmonary emphysema, seizure, renal cysts COMPARISON: null FINDINGS: CT head without contrast Comparison: CT/SR - CT BRAIN HEAD WO - 01/20/2024 04:43 PM EDT Findings: New parenchymal hypodensity in the left frontal lobe extending to the cortex. 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 Previous left subarachnoid hemorrhage is resolved. No midline shift or hydrocephalus. Mild periventricular hypodensity may relate to chronic small vessel ischemic changes. Mild generalized atrophy. Fluid in the right sphenoid sinus. Mastoid air cells are clear. The orbits are within normal limits. No skull fracture. IMPRESSION: IMPRESSION: 1. Findings suspicious for infarct in the left frontal lobe, new since 01/20/2024. 2. Previous left intracranial bleed is resolved. Authenticated and [facility] Dictated By: Jeferson Medina Transcribed By: Transcribed On: 03/07/2024 9:45 PM Electronically signed by: Jeferson Medina 03/07/2024 Addendum 1 ADDENDUM REPORT ADDENDUM 1: This report was discussed with Dr. Alejandro on March 07, 2024 21:48:00 EDT. Critical findings reported to Dr. Alejandro on 03/07/2024 21:48 Authenticated by Jeferson Medina MD on 2024-03-07 21:48:56 [facility] FINAL REPORT TECHNIQUE: null Legally authenticated by LAURA COSTELLO MD 2024-03-07 21:48:56 CLINICAL HISTORY: Dizziness, pt stated she has vertigo, lost balance and fell, striking post. scalp, no LOC, AandO x 3 with complaint only vertigo at present, hx brain bleed in January 2024 secondary to fall, hx blood coagulation disorder, diabetes, gastro reflux ds, heart ds, shingles, high bp, pulmonary emphysema, seizure, renal cysts COMPARISON: null FINDINGS: CT head without contrast Comparison: CT/SR - CT BRAIN HEAD WO - 01/20/2024 04:43 PM EDT Findings: New parenchymal hypodensity in the left frontal lobe extending to the cortex. 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 Previous left subarachnoid hemorrhage is resolved. No midline shift or hydrocephalus. Mild periventricular hypodensity may relate to chronic small vessel ischemic changes. Mild generalized atrophy. Fluid in the right sphenoid sinus. Mastoid air cells are clear. The orbits are within normal limits. No skull fracture. IMPRESSION: IMPRESSION: 1. Findings suspicious for infarct in the left frontal lobe, new since 01/20/2024. 2. Previous left intracranial bleed is resolved. Authenticated by Jeferson Medina MD on 03/07/2024 09:45:20 pm [facility] Dictated By: Jeferson Medina Dictated Date: 03/07/2024 Electronically signed by: Jeferson Medina 03/07/2024 Thank you for referring SKYLER BAUTISTA to [facility]. Legally authenticated by LAURA COSTELLO MD 2024-03-07 21:48:56 ORDER 700: CHEST SINGLE VIEW /PORTABLE (LOINC: 57964-5) ORDER DATE: March 08, 2024 1:27:00 AM [facility] PERFORMING LAB: [facility] [address] [facility] [place] [id number] Final Result Date: March 08 2:56:[address] [place] [address] Name: SKYLER BAUTISTA Exam Date: 03/07/2024 : 1940 Age 83 years Gender: F Physician: OMAR ALEJANDRO Facility: [facility] Facility HSV: Outpatient Exam: CHEST SINGLE VIEW/PORTABLE PORTABLE CHEST HISTORY: Chronic vertigo, lost balance, recent fall. COMPARISON: April 13, 2023. FINDINGS: Patient is status post prior median sternotomy. The cardiac silhouette is accentuated. Mediastinum is unremarkable . Left retrocardiac opacities may reflect atelectasis or evolving pneumonia in the appropriate clinical setting. There is no pneumothorax . There is a probable hiatal hernia. IMPRESSION: Left retrocardiac opacities may reflect atelectasis or evolving pneumonia in the appropriate clinical setting . Images reviewed, interpreted, and dictated by Dr. sIabella Solis Transcribed by Samia Burger PA-C Dictated By: Isabella hewitt Transcribed By: Isabella hewitt Transcribed On: 03/08/2024 10:56 AM Electronically signed by: Isabella hewitt 03/08/2024 Thank you for referring SKYLER BAUTISTA to [facility]. Legally authenticated by NIRAV Casas MD 2024-03-08 10:56:10 PATHOLOGY NARRATIVE RESULTS Information is not available [...] Quantity Dates Comments Physician Updated By Ish[facility] [id number] 3607 111 meclizine 25 MG TABS 25.0 MG BY MOUTH ONE TIME ONLY Start: March 08, 2024 1:04:0 0 AM UTC End: March 08, 2024 1:04:0 0 AM UTC JAVON Cummings MD INTERF ED on March 08, 2024 1:02:00 AM UTC SOCIAL HISTORY SOCIAL HISTORY SNOMED-CT Social History Element Description Effective Dates Offered Cessation Comment UpdatedBy [id number] Historical Tobacco smoking status Never Smoked Not Applicable [id number] on April 07, 2016 4:52:02 AM UTC [id number] Historical Tobacco smoking status Former Smoker Yes [id number] on June 09, 2015 6:14:54 PM UTC SOCIAL HISTORY - Gender Sex: Female SOCIAL [...] value for each vital sign as of March 09, 2024 10:42:23 AM [facility] Loinc Code Vital Sign Activity Date Result Updated By 8310-5 Body temperature March 08, 2024 12:28:13 AM UTC 98.0 [degF] [id number] on March 09, 2024 2:57:42 AM UTC 8462-4 Diastolic blood pressure March 08, 2024 2:12:42 AM UTC 78.0 mm[Hg] [id number] on March 09, 2024 2:57:45 AM UTC 8867-4 Heart rate March 08, 2024 2:1 2:42 AM UTC 80 /min [id number] on March 09, 2024 2:57:45 AM UTC 80705-3 Oxygen saturation in Arterial blood by Pulse oximetry March 08, 2024 12:28:13 AM UTC 98.0 % [id number] on March 09, 2024 2:57:42 AM UTC 9279-1 Respiratory rate March 08, 2024 12:28:13 AM UTC 20 /min [id number] on March 09, 2024 2:57:42 AM UTC 8480-6 Systolic blood pressure March 08, 2024 2:12:42 AM UTC 190.0 mm[Hg] [id number] on March 09, 2024 2:57:45 AM UTC PEDIATRIC GROWTH CHART - VITAL SIGNS This [...] INFORMATION Reason for Visit FALL INJURY Admission March 08, 2024 12:26:[address] [id number] Discharge March 08, 2024 2:57:00 AM [facility] ANOT HER SHORT-TERM [facility] ENCOUNTER DIAGNOSES Notes information is not juan manuel ilable. Code System Diagnosis Onset Date Diagnosis information is not available. 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 [id number] on March 09, 2024 10:41:26 AM [facility] Z88.1 ICD10 ALLERGY STATUS T O OTHER ANTIBIOTIC AGENTS [id number] on March 09, 2024 10:41:26 AM [facility] Z88.6 ICD10 ALLERGY STATUS TO ANALGESIC AGENT [id number] on March 09, 2024 10:41:26 AM [facility] CARE TEAM Care Assembler Role OMAR ALEJANDRO Referring [facility] Primary Care OMAR ALEJANDRO Admitting OMAR ALEJANDRO Primary Attending CARE TEAM CARE data coordinator Role on Team Status Start Date End Date Update d By JAVON Cummings MD Referring normal March 08 1:19:22 AM [facility] March 08, 2024 2:57:00 AM [facility] [id number] on March 08, 2024 1:19:22 AM [facility] JAVON Cummings MD Attending normal March 08 1:19:22 AM [facility] March 08, 2024 2:57:00 AM [facility] [id number] on March 08, 2024 1:19:22 AM [facility] JAVON Cummings MD Admitting normal March 08 1:19:21 AM [facility] March 08, 2024 2:57:00 AM [facility] [id number] on March 08, 2024 1:19:22 AM [facility] BACILIO Casas MD PHY PCP normal March 08, 2024 12:26:55 AM [facility] March 08, 2024 2:57:00 AM [facility] [id number] on March 08, 2024 1:19:22 AM [facility]
--- OUTSIDE RECORDS SUMMARY | 2024-05-18 09:00 | XMS_ITS | Continuity of Care Document ---
Author Organization [facility] Phone Care Team Providers Care Benzol Operator Name Role Phone KEVIN RIBERA Primary Attending KEVIN RIBERA Admitting KEVIN RIBERA Unavailable KEVIN RIBERA Primary Care ALLERGIES AND ADVERSE REACTIONS ALLERGIES AND ADVERSE REACTIONS Code System Allergy Substance Adverse Reaction Date Reaction (Severity) Comment Status Reported By Updated By 9280 RXNorm MACRODANTIN Rash Adverse reaction to substance mouth swells active [id number] on April 20, 2024 4:09:53 AM [facility] FAMILY HISTORY RELATION: Father Status: Cause of [...] 100: CBC AUTO W DIFF ( LOINC: 25328-1) ORDER DATE: May 14, 2024 7:36:00 PM UTC Specimen Source: Whole Blood Specimen Type: Whole blood s ample PERFORMING LAB: [address] [id number] Result Comment: Final Result Date: May 14, 2024 8:35:00 PM UTC (TECH: [employer]) LOINC TEST FLAG RESULT REFERENCE RANGE UPDA JACEK BY 6690-2 Leukocytes [#/volume] in Blood by Automated count L 4.2 10^3/uL 4.5 10^3/uL - 11.5 10^3/uL May 14, 2024 8:35:00 PM UTC (TECH: [employer]) 789-8 Erythrocytes [#/volume] in Blood by Automated count L 3.43 10^6/uL 4.25 10^6/uL - 5.57 10^6/uL May 14, 2024 8:35:00 PM UTC (TECH: [employer]) 718-7 Hemoglobin [Mass/volume] in Blood L 11.8 g/dL 12.0 g/dL - 15.7 g/dL May 14, 2024 8:35:00 PM UTC (TECH: [employer]) 80656-6 Hematocrit [Volume Fraction] of Blood L 35.9 % 36.0 % - 47.0 % May 14, 2024 8:35:00 PM UTC (TECH: [employer]) 787-2 Erythrocyte mean corpuscular volume [Entitic volume] by Automated count H 104.7 fl 80 fl - 95 fl May 14, 2024 8:35:00 PM UTC (TECH: [employer]) 49064-9 Erythrocyte mean corpuscular hemoglobin [Entitic mass] in Blood from Fetus by Automated count H 34.4 pg 27.0 pg - 34.0 pg May 14, 2024 8:35:00 PM UTC (TECH: [employer]) 54687-3 Erythrocyte mean corpuscular hemoglobin concentration [Mass/volume] in Blood from [place]etus by Automated count N 32.9 g/dL 32.0 g/dL - 36.0 g/dL May 14, 2024 8:35:00 PM UTC (TECH: [employer]) 23866-9 Platelets [#/volume] in Blood L 80 10^3/uL 150 10^3/uL - 450 10^3/uL May 14, 2024 8:35:00 PM UTC (TECH: [employer]) 88347-9 Erythrocyte distribution width [Ratio] N 14.9 % 12.3 % - 15.1 % May 14, 2024 8:35:00 PM UTC (TECH: [employer]) 90702-3 Platelet mean volume [Entitic volume] in Blood by Automated count H 11.5 fl 7.4 fl - 10.4 fl May 14, 2024 8:35:00 PM UTC (TECH: [employer]) 52724-1 Granulocytes/100 leukocytes in Blood by Automated count N 59.0 % 40 % - 75 % May 14, 2024 8:35:00 PM UTC (TECH: [employer]) 736-9 Lymphocytes/100 leukocytes in Blood by Automated count N 29.7 % 15 % - 57 % May 14, 2024 8:35:00 PM UTC (TECH: [employer]) 5905-5 Monocytes/100 leukocytes in Blood by Automated count N 10.4 % 4.0 % - 12.0 % May 14, 2024 8:35:00 PM UTC (TECH: [employer]) 713-8 Eosinophils/100 leukocytes in Blood by Automated count N 0.2 % 0.0 % - 4.0 % May 14, 2024 8:35:00 PM UTC (TECH: [employer]) 706-2 Basophils/100 leukocytes in Blood by Automated count N 0.7 % 0.0 % - 1.0 % May 14, 2024 8:35:00 PM UTC (TECH: [employer]) 58128-4 Immature granulocytes [#/volume] in Blood N 0.0 % 0.0 % - 0.8 % May 14 8:35:00 PM UTC (TECH: [employer]) 00953-5 Granulocytes [#/volume] in Blood by Automated count N 2.50 10^3/uL May 14, 2024 8:35:00 PM UTC (TECH: GojimoM) 731-0 Lymphocytes [#/volume] in Blood by Automated count N 1.26 10^3/uL May 14, 2024 8:35:00 PM UTC (TECH: GojimoM) 742-7 Monocytes [#/volume] in Blood by Automated count N 0.44 10^3/uL May 14, 2024 8:35:00 PM UTC (TECH: [employer]) 711-2 Eosinophils [#/volume] in Blood by Automated count N 0.01 10^3/uL May 14, 2024 8:35:00 PM UTC (TECH: [employer]) 704-7 Basophils [#/volume] in Blood by Automated count N 0.03 10^3/uL May 14, 2024 8:35:00 PM UTC (TECH: [employer]) 14875-0 Immature granulocytes [#/volume] in Blood N 0.00 10^3/uL May 14 8:35:00 PM UTC (TECH: [employer]) 04375-6 Manual differential performed [Presence] in Blood N NO May 14, 2024 8:35:00 PM UTC (TECH: [employer]) ORDER 300: THYROID STIMULATI NG HORMONE (LOINC: 3016-3) ORDER DATE: May 14, 2024 7:36:00 PM UTC Specimen Source: Serum/Plasm a Specimen Type: Acellular blo od (serum or plasma) specimen PERFORMING LAB: [address] [id number] Result Comment: Final Result Date: May 14, 2024 9:20:00 PM UTC (TECH: [employer]) LOINC TEST FLAG RESULT REFERENCE RANGE UPDA JACEK BY 3016-3 Thyrotropin [Units/volume] in Serum or Plasma N 2.46 mIU/mL 0.34 mIU/mL - 4.80 mIU/mL May 14, 2024 9:20:00 PM UTC (TECH: [employer]) ORDER 400: VITAMIN B12 AND F OLATE (LOINC: 57304-3) ORDER DATE: May 14, 2024 7:36:00 PM UTC Specimen Source: Serum/Plasm a Specimen Type: Acellular blo od (serum or plasma) specimen PERFORMING LAB: [address] [id number] Result Comment: Final Result Date: May 14, 2024 9:21:00 PM UTC (TECH: [employer]) LOINC TEST FLAG RESULT REFERENCE RANGE UPDA JACEK BY 2132-9 Cobalamin (Vitamin B12) [Mass/volume] in Serum or Plasma H 1283 pg/mL 193 pg/mL - 986 pg/mL May 14, 2024 9:21:00 PM UTC (TECH: [employer]) 2282-2 Folate [Mass/volume] in Blood N 32.9 ng/mL 8.6 ng/mL - 58.9 ng/mL May 14, 2024 9:21:00 PM UT (TECH: [employer]) ORDER 500: COMP METABOLIC PA JEROME (LOINC: 61728-8) ORDER DATE: May 14, 2024 7:36:00 PM UT Specimen Source: Serum/Plasm a Specimen Type: Acellular blo od (serum or plasma) specimen PERFORMING LAB: [address] [id number] Result Comment: Final Result Date: May 14, 2024 9:21:00 PM [facility] (TECH: [employer]) LOINC TEST FLAG RESULT REFERENCE RANGE UPDA JACEK BY 2951-2 Sodium [Moles/volume ] in Serum or Plasma N 139 mmol/L 136 mmol/L - 145 mmol/L May 14, 2024 9:21:00 PM [facility] (TECH: [employer]) 2823-3 Potassium [Moles/volume] in Serum or Plasma N 3.9 mmol/L 3.5 mmol/L - 5.1 mmol/L May 14, 2024 9:21:00 PM [facility] (TECH: [employer]) 2075-0 Chloride [Moles/volu me] in Serum or Plasma N 104 mmol/L 98 mmol/L - 107 mmol/L May 14, 2024 9:21:00 PM UT (TECH: [employer]) 8-9 Carbon dioxide, tota l [Moles/volume] in Serum or Plasma N 25 mmol/L 21 mmol/L - 32 mmol/L May 14, 2024 9:21:00 PM [facility] (TECH: [employer]) 09685-6 Anion gap 3 in Serum or Plasma N 10.0 May 14, 2024 9:21:00 PM [facility] (TECH: [employer]) 2345-7 Glucose [Mass/volume ] in Serum or Plasma H 131 mg/dL 70 mg/dL - 110 mg/dL May 14, 2024 9:21:00 PM [facility] (TECH: [employer]) 3094-0 Urea nitrogen [Mass/volume] in Serum or Plasma N 13 mg/dL 7 mg/dL - 18 mg/dL May 14, 2024 9:21:00 PM [facility] (TECH: [employer]) 2160-0 Creatinine [Mass/volume] in Serum or Plasma N 0.9 mg/dL 0.6 mg/dL - 1.0 mg/dL May 14, 2024 9:21:00 PM [facility] (TECH: [employer]) 3097-3 Urea nitrogen/Creatinine [Mass Ratio] in Serum or Plasma N 14.4 Ratio 9 Ratio - 21 Ratio May 14, 2024 9:21:00 PM [facility] ([employer]) 74320-6 Glomerular filtratio n rate/1.73 sq M.predicted by Creatinine-based formula (MDRD) N 63 mL/min >60 May 14, 2024 9:21:00 PM [facility] (TECH: [employer]) 2885-2 Protein [Mass/volume ] in Serum or Plasma N 7.1 g/dL 6.4 g/dL - 8.2 g/dL May 14, 2024 9:21:00 PM [facility] ([employer]: [employer]) 1751-7 Albumin [Mass/volume ] in Serum or Plasma N 3.5 g/dL 3.4 g/dL - 5.0 g/dL May 14, 2024 9:21:00 PM [facility] ([employer]) 20696-9 Calcium [Mass/volume ] in Serum or Plasma N 9.0 mg/dL 8.5 mg/dL - 10.1 mg/dL May 14, 2024 9:21:00 PM [facility] ([employer]: [employer]) 62186-7 Calcium [Mass/volume ] corrected for total protein in Serum or Plasma N 9.4 mg/dL 8.5 mg/dL - 10.1 mg/dL May 14, 2024 9:21:00 PM [facility] ([employer]: [employer]) 1975-2 Bilirubin.total [Mass/volume] in Serum or Plasma N 0.6 mg/dL 0.4 mg/dL - 1.5 mg/dL May 14, 2024 9:21:00 PM [facility] (TECH: [employer]) 1920-8 Aspartate aminotransferase [Enzymatic activity/volume] in Serum or Plasma N 21 U/L 15 U/L - 37 U/L May 14, 2024 9:21:00 PM [facility] (TECH: [employer]) 1742-6 Alanine aminotransferase [Enzymatic activity/volume] in Serum or Plasma N 36 U/L 12 U/L - 78 U/L May 14, 2024 9:21:00 PM [facility] (TECH: [employer]) 6768-6 Alkaline phosphatase [Enzymatic activity/volume] in Serum or Plasma H 203 U/L 53 U/L - 141 U/L May 14, 2024 9:21:00 PM UTC (TECH: [employer]) ORDER 600: IRON/TIBC/ SAT IR ON STUDIES (LOINC: 66582-0) ORDER DATE: May 14, 2024 7:36:00 PM UTC Specimen Source: Serum/Plasm a Specimen Type: Acellular blo od (serum or plasma) specimen PERFORMING LAB: [address] [id number] Result Comment: Final Result Date: May 14, 2024 8:34:00 PM UTC (TECH: [employer]) LOINC TEST FLAG RESULT REFERENCE RANGE UPDA JACEK BY 2498-4 Iron [Mass/volume] in Serum or Plasma N 50 ug/dL 35 ug/dL - 150 ug/dL May 14, 2024 8:34:00 PM UTC (TECH: [employer]) 2500-7 Iron binding capacity [Mass/volume] in Serum or Plasma N 281 ug/dL 250 ug/dL - 450 ug/dL May 14, 2024 8:34:00 PM UTC (TECH: [employer]) 67863-0 Oxygen saturation in Blood N 18 % 15 % - 55 % May 14, 2024 8:34:00 PM UTC (TECH: [employer]) ORDER 700: LIPID PANEL (LOIN C: 72978-3) ORDER DATE: May 14, 2024 7:36:00 PM UTC Specimen Source: Serum/Plasm a Specimen Type: Acellular blo od (serum or plasma) specimen PERFORMING LAB: [address] [id number] Result Comment: Final Result Date: May 14, 2024 9:21:00 PM UTC (TECH: [employer]) LOINC TEST FLAG RESULT REFERENCE RANGE UPDA JACEK BY 2571-8 Triglyceride [Mass/volume] in Serum or Plasma N 120 mg/dL 20 mg/dL - 200 mg/dL May 14, 2024 9:21:00 PM UTC (TECH: GojimoM) 2092-3 Cholesterol [Mass/volume] in Serum or Plasma N 134 mg/dL 0 mg/dL - 200 mg/dL May 14, 2024 9:21:00 PM UTC (TECH: GojimoM) 2084-9 Cholesterol in HDL [Mass/volume] in Serum or Plasma L 51 mg/dL 60 mg/dL May 14, 2024 9:21:00 PM UT (TECH: [employer]) 97921-5 Cholesterol in LDL [Mass/volume] in Serum or Plasma by calculation L 59 mg/dL 100 mg/dL May 14, 2024 9:21:00 PM UT (TECH: KSM) 2095-8 Cholesterol in HDL/Cholesterol.tota l [Mass Ratio] in Serum or Plasma N 3 Ratio May 14, 2024 9:21:00 PM UT (TECH: KSM) ORDER 800: VITAMIN D TOTAL D 2 D3 (LOINC: 30221-3) ORDER DATE: May 14, 2024 8:17:00 PM UT Specimen Source: Whole Blood Specimen Type: Whole blood s ample PERFORMING LAB: [place] [id number] Result Comment: Final Result Date: May 14, 2024 9:21:00 PM UT (TECH: [employer]) LOINC TEST [place] [address]-6 Calcidiol+Calci ferol [Mass/volume] in Serum or Plasma N 53.3 ng/mL 30 ng/mL - 100 ng/mL May 14, 2024 9:21:00 PM UT (TECH: KSM) ORDER 900: HEMOGLOBIN A1C (L OINC: 4548-4) ORDER DATE: May 14, 2024 8:46:00 PM UT Specimen Source: Whole Blood Specimen Type: Whole blood s ample PERFORMING LAB: [address] [id number] Result Comment: Final Result Date: May 14, 2024 9:02:00 PM UT (TECH: [employer]) LOINC TEST FLAG RESULT REFERENCE RANGE UPDA JACEK BY 4548-4 Hemoglobin A1c/Hemoglobin.total in Blood N 5.9 % 4.5 % - 6.2 % May 14, 2024 9:02:00 PM UT (TECH: [employer]) 81884-1 Glucose mean value [Mass/volume] in Blood Estimated from glycated hemoglobin N 123 mg/dl 82 mg/dl - 131 mg/dl April 9:02:00 PM UT (TECH: KSM) LABORATORY NARRATIVE RESULTS Information is not available [...] Description Effective Dates Offered Cessation Comment UpdatedBy [id number] Historical Tobacco smoking status Never Smoked Not Applicable [id number] on April 07, 2016 4:52:02 AM [facility] [id number] Historical Tobacco smoking status Former Smoker Yes [id number] on June 09, 2015 6:14:54 PM [facility] SOCIAL HISTORY - Gender Sex: Female SOCIAL [...] available. ENCOUNTERS ENCOUNTER INFORMATION Reason for Visit R73.9 Admission May 14, 2024 7:35:[address] [address] Discharge May 14, 2024 8:35:00 PM [facility] DIS CHARGED TO HOME OR SELF CARE ENCOUNTER DIAGNOSES Notes information is not juan manuel ilable. Code System Diagnosis Onset Date Diagnosis information is not available. ABSTRACT DIAGNOSES Code System Diagnosis Updated By Abstract Diagnosis informati on is not available. 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 Role on Team Status Start Date End Date Update d By BACILIO KNOTT PCP normal May 14, 2024 4:00:00 AM [facility] May 14, 2024 8:35:00 PM [facility] [id number] on May 15, 2024 12:16:46 PM [facility] BACILIO KNOTT Referring normal May 14, 2024 4:00:00 AM UT May 14, 2024 8:35:00 PM UT [id number] on May 15, 2024 12:16:46 PM [facility] BACILIO KNOTT Attending normal May 14, 2024 4:00:00 AM UT May 14, 2024 8:35:00 PM [facility] [id number] on May 15, 2024 12:16:46 PM [facility] BACILIO KNOTT Admitting normal May 14, 2024 4:00:00 AM UT May 14, 2024 8:35:00 PM UT [id number] on May 15, 2024 12:16:46 PM [facility] DECLINED PCP PCP normal May 14, 2024 7:36:17 PM UT May 14, 2024 4:00:00 AM [facility] [id number] on May 15, 2024 12:16:46 PM [facility]
--- OUTSIDE RECORDS SUMMARY | 2024-05-18 09:00 | XMS_ITS | Continuity of Care Document ---
Author Organization [facility] Phone Care Team Providers Care Commercial Loan Manager Name Role Phone DOMINGO ANNE Admitting DOMINGO ANNE Primary Care DOMINGO ANNE Primary Attending DOMINGO ANNE Unavailable ALLERGIES AND ADVERSE REACTIONS ALLERGIES AND ADVERSE REACTIONS Code System Allergy Substance Adverse Reaction Date Reaction (Severity) Comment Status Reported By [place] 7441 RXNorm MACRODANTIN Rash Adverse reaction to substance mouth swells active [id number] on March 08, 2024 12:31:35 AM [facility] 7052 RXNorm MORPHINE Adverse reaction to substance pain active [id number] on March 08, 2024 12:31:35 AM [facility] FAMILY HISTORY RELATION: Father Status: Cause [...] 100: CBC AUTO W DIFF ( LOINC: 11146-5) ORDER DATE: March 06, 2024 7:53:00 PM UTC Specimen Source: Whole Blood Specimen Type: Whole blood s ample PERFORMING LAB: [address] [id number] Result Comment: Final Result Date: March 06, 2024 8:02:00 PM UTC (TECH: MRB) LOINC TEST FLAG RESULT REFERENCE RANGE UPDA JACEK BY 6690-2 Leukocytes [#/volume] in Blood by Automated count L 4.2 10^3/uL 4.5 10^3/uL - 11.5 10^3/uL March 06, 2024 8:02:00 PM UTC (TECH: MRB) 789-8 Erythrocytes [#/volume] in Blood by Automated count L 2.46 10^6/uL 4.25 10^6/uL - 5.57 10^6/uL March 06, 2024 8:02:00 PM UTC (TECH: MRB) 718-7 Hemoglobin [Mass/volume] in Blood L 9.0 g/dL 12.0 g/dL - 15.7 g/dL March 06, 2024 8:02:00 PM UTC (TECH: MRB) 63314-7 Hematocrit [Volume Fraction] of Blood L 27.4 % 36.0 % - 47.0 % March 06, 2024 8:02:00 PM UTC (TECH: MRB) 787-2 Erythrocyte mean corpuscular volume [Entitic volume] by Automated count H 111.4 fl 80 fl - 95 fl March 06, 2024 8:02:00 PM UTC (TECH: MRB) 18406-8 Erythrocyte mean corpuscular hemoglobin [Entitic mass] in Blood from [place]etus by Automated count H 36.6 pg 27.0 pg - 34.0 pg March 06, 2024 8:02:00 PM UTC (TECH: MRB) 55425-5 Erythrocyte mean corpuscular hemoglobin concentration [Mass/volume] in Blood from [place]etus by Automated count N 32.8 g/dL 32.0 g/dL - 36.0 g/dL March 06, 2024 8:02:00 PM UTC (TECH: MRB) 88805-3 Platelets [#/volume] in Blood L 98 10^3/uL 150 10^3/uL - 450 10^3/uL March 06, 2024 8:02:00 PM UTC (TECH: MRB) 78749-7 Erythrocyte distribution width [Ratio] N 13.9 % 12.3 % - 15.1 % March 06, 2024 8:02:00 PM UTC (TECH: MRB) 25408-8 Platelet mean volume [Entitic volume] in Blood by Automated count H 11.4 fl 7.4 fl - 10.4 fl March 06, 2024 8:02:00 PM UTC (TECH: MRB) 33331-9 Granulocytes/100 leukocytes in Blood by Automated count N 62.5 % 40 % - 75 % March 06, 2024 8:02:00 PM UTC (TECH: MRB) 736-9 Lymphocytes/100 leukocytes in Blood by Automated count N 23.8 % 15 % - 57 % March 06, 2024 8:02:00 PM UTC (TECH: MRB) 5905-5 Monocytes/100 leukocytes in Blood by Automated count H 12.5 % 4.0 % - 12.0 % March 06, 2024 8:02:00 PM UTC (TECH: MRB) 713-8 Eosinophils/100 leukocytes in Blood by Automated count N 0.0 % 0.0 % - 4.0 % March 06, 2024 8:02:00 PM UTC (TECH: MRB) 706-2 Basophils/100 leukocytes in Blood by Automated count N 0.5 % 0.0 % - 1.0 % March 06, 2024 8:02:00 PM UTC (TECH: MRB) 18437-5 Immature granulocytes [#/volume] in Blood N 0.7 % 0.0 % - 0.8 % March 06, 2024 8:02:00 PM UTC (TECH: MRB) 22596-4 Granulocytes [#/volume] in Blood by Automated count N 2.65 10^3/uL March 06, 2024 8:02:00 PM UTC (TECH: MRB) 731-0 Lymphocytes [#/volume] in Blood by Automated count N 1.01 10^3/uL March 06, 2024 8:02:00 PM UTC (TECH: MRB) 742-7 Monocytes [#/volume] in Blood by Automated count N 0.53 10^3/uL March 06, 2024 8:02:00 PM UTC (TECH: MRB) 711-2 Eosinophils [#/volume] in Blood by Automated count N 0.00 10^3/uL March 06, 2024 8:02:00 PM UTC (TECH: MRB) 704-7 Basophils [#/volume] in Blood by Automated count N 0.02 10^3/uL March 06, 2024 8:02:00 PM UTC (TECH: MRB) 19116-3 Immature granulocytes [#/volume] in Blood N 0.03 10^3/uL March 06, 2024 8:02:00 PM UTC (TECH: MRB) 49243-3 Manual differential performed [Presence] in Blood N NO March 06, 2024 8:02:00 PM UT (TECH: MRB) ORDER 300: COMP METABOLIC PA JEROME (LOINC: 52545-0) ORDER DATE: March 06, 2024 7:53:00 PM UT Specimen Source: Serum/Plasm a Specimen Type: Acellular blo od (serum or plasma) specimen PERFORMING LAB: [address] [id number] Result Comment: Final Result Date: March 06, 2024 8:20:00 PM UT (TECH: LT) LOINC TEST FLAG RESULT REFERENCE RANGE UPDA JACEK BY 2951-2 Sodium [Moles/volume ] in Serum or Plasma N 140 mmol/L 136 mmol/L - 145 mmol/L March 06, 2024 8:20:00 PM UT (TECH: LT) 2823-3 Potassium [Moles/vol ume] in Serum or Plasma N 3.9 mmol/L 3.5 mmol/L - 5.1 mmol/L March 06, 2024 8:20:00 PM UT (TECH: LT) 2075-0 Chloride [Moles/volu me] in Serum or Plasma N 106 mmol/L 98 mmol/L - 107 mmol/L March 06, 2024 8:20:00 PM UTC (TECH: LT) 8-9 Carbon dioxide, tota l [Moles/volume] in Serum or Plasma L 20 mmol/L 21 mmol/L - 32 mmol/L March 06, 2024 8:20:00 PM UTC (TECH: LT) 78556-3 Anion gap 3 in Serum or Plasma N 14.0 March 06, 2024 8:20:00 PM UT (TECH: LT) 2345-7 Glucose [Mass/volume ] in Serum or Plasma H 147 mg/dL 70 mg/dL - 110 mg/dL March 06, 2024 8:20:00 PM [facility] (TECH: LT) 3094-0 Urea nitrogen [Mass/volume] in Serum or Plasma N 8 mg/dL 7 mg/dL - 18 mg/dL March 06, 2024 8:20:00 PM [facility] (TECH: LT) 2160-0 Creatinine [Mass/vol ume] in Serum or Plasma N 0.9 mg/dL 0.6 mg/dL - 1.0 mg/dL March 06, 2024 8:20:00 PM [facility] (TECH: LT) 3097-3 Urea nitrogen/Creati nine [Mass Ratio] in Serum or Plasma L 8.9 Ratio 9 Ratio - 21 Ratio March 06, 2024 8:20:00 PM [facility] (TECH: LT) 72748-6 Glomerular filtratio n rate/1.73 sq M.predicted by Creatinine-based formula (MDRD) N 63 mL/min >60 March 06, 2024 8:20:00 PM [facility] (TECH: LT) 2885-2 Protein [Mass/volume ] in Serum or Plasma L 5.5 g/dL 6.4 g/dL - 8.2 g/dL March 06, 2024 8:20:00 PM [facility] (TECH: LT) 1751-7 Albumin [Mass/volume ] in Serum or Plasma L 3.0 g/dL 3.4 g/dL - 5.0 g/dL March 06, 2024 8:20:00 PM [facility] (TECH: LT) 01616-1 Calcium [Mass/volume ] in Serum or Plasma N 8.5 mg/dL 8.5 mg/dL - 10.1 mg/dL March 06, 2024 8:20:00 PM [facility] (TECH: LT) 09642-5 Calcium [Mass/volume ] corrected for total protein in Serum or Plasma N 9.3 mg/dL 8.5 mg/dL - 1 0.1 mg/dL March 06, 2024 8:20:00 PM [facility] (TECH: LT) 1975-2 Bilirubin.total [Mass/volume] in Serum or Plasma N 0.4 mg/dL 0.4 mg/dL - 1.5 mg/dL March 06, 2024 8:20:00 PM [facility] (TECH: LT) 1920-8 Aspartate aminotrans ferase [Enzymatic activity/volume] in Serum or Plasma N 18 U/L 15 U/L - 37 U/L March 06, 2024 8:20:00 PM [facility] (TECH: LT) 1742-6 Alanine aminotransfe rase [Enzymatic activity/volume] in Serum or Plasma N 26 U/L 12 U/L - 78 U/L March 06, 2024 8:20:00 PM [facility] (TECH: LT) 6768-6 Alkaline phosphatase [Enzymatic activity/volume] in Serum or Plasma N 70 U/L 53 U/L - 141 U/L March 06, 2024 8:20:00 PM [facility] (TECH: LT) LABORATORY NARRATIVE RESULTS Information [...] Description Effective Dates Offered Cessation Comment UpdatedBy [id number] Historical Tobacco smoking status Never Smoked Not Applicable [id number] on April 07, 2016 4:52:02 AM [facility] [id number] Historical Tobacco smoking status Former Smoker Yes [id number] on June 09, 2015 6:14:54 PM [facility] SOCIAL HISTORY - Gender Sex: Female [...] available. ENCOUNTERS ENCOUNTER INFORMATION Reason for Visit I50.9 HEART FAILURE, UNSPECIFIED Admission March 06, 2024 7:53:[address] [address] Discharge March 06, 2024 8:53:00 PM [facility] DISC HARGED TO HOME OR SELF CARE ENCOUNTER DIAGNOSES Notes information is not juan manuel ilable. Code System Diagnosis Onset Date Diagnosis information is not available. 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 Role on Team Status Start Date End Date Update d By OMID LANE MD Referring normal March 06 4:00:00 AM [facility] March 06, 2024 8:53:00 PM [facility] [id number] on March 07, 2024 3:54:48 PM [facility] OMID LANE MD Attending normal March 06 4:00:00 AM [facility] March 06, 2024 8:53:00 PM [facility] [id number] on March 07, 2024 3:54:48 PM [facility] OMID L[address] MD Admitting normal March 06 4:00:00 AM [facility] March 06, 2024 8:53:00 PM [facility] [id number] on March 07, 2024 3:54:48 PM [facility] OMID LANE MD PCP normal March 06 7:53:32 PM [facility] March 06, 2024 8:53:00 PM [facility] [id number] on March 07, 2024 3:54:48 PM [facility]
[2024-05-18 09:04] LABS: Alanine Aminotransferase 29 U/L (12-78); Albumin Level 3.5 g/dl (3.5-5.0); Albumin/Globulin Ratio 1.1 (1.1-1.8); Alkaline Phosphatase 171 U/L (38-126); Anion Gap 9.1 mEq/L (5-15); Aspartate Amino Transferase 34 U/L (14-36); Blood Urea Nitrogen 12 mg/dl (7-17); Calcium 9.2 mg/dl (8.4-10.2); Carbon Dioxide 23 mmol/L (22.0-30.0); Chloride 109 mmol/L (98-107); Creatinine Clearance Estimated 40 mL/min (50-200); Estimated Glomerular Filt Rate 95 ml/min (>60); GFR (African American) 115 ML/MIN (>60); Globulin 3.1 g/dL (1.3-3.2); Glucose 135 mg/dl (74-100); Magnesium 1.5 mg/dl (1.6-2.3); Potassium 3.1 mmoL/L (3.5-5.1); Sodium 138 mmol/L (136-145); Total Protein,Serum 6.6 g/dl (6.3-8.2)
--- NOTE | 2024-05-18 09:04 | PC.NURSE ---
Dr. Solares at [facility] for BIBI
--- NOTE | 2024-05-18 09:04 | PC.NURSE ---
blood sent to lab
--- NOTE | 2024-05-18 09:10 | PC.NURSE ---
PUREWICK PLACED AND IV LASIX GIVEN. CALL LIGHT WITHIN REACH. NO NEEDS AT THIS TIME
[2024-05-18 09:11] LABS: INR 1.14 (0.9-1.1); Prothrombin Time 12.6 seconds (10.1-12.5)
[2024-05-18] MEDS: FUROSEMIDE 40MG/4ML VIAL 40 MG IV ×2 (09:15→10:10)
--- NOTE | 2024-05-18 09:15 | [facility]H.EDCP ---
Discharge Plan Disposition Patient Disposition: Admitted Chief Complaint: Shortness of Breath/Dyspnea Prescriptions Prescriptions: No Action warfarin 2 mg tablet 2 mg PO SUTUTH Rx Instructions: 2 mg PO tues,thus,sun; carvedilol 6.25 mg tablet 12.5 mg PO BID Rx Instructions: must administer with a meal/food ranolazine 500 mg tablet extended release 12 hr 1,000 mg PO DAILY 30 Days Qty: 120 omeprazole 40 mg capsule,delayed release(DR/EC) 40 mg PO BID 30 Days Qty: 30 metformin 500 mg tablet extended release 24 hr 500 mg PO BID 90 Days Qty: 180 atorvastatin 80 mg tablet 80 mg PO DAILY 90 Days Qty: 90 hydralazine 10 mg tablet 10 mg PO DAILY 90 Days Qty: 180 citalopram 20 mg Tablet 20 mg PO DAILY cholecalciferol (vitamin D3) 50 mcg (2,000 unit) Tablet 50 mcg PO DAILY Centrum 18-400 mg-mcg Tablet 1 tab PO DAILY coenzyme Q10 50 mg Tablet 50 mg PO DAILY cyanocobalamin (vitamin B-12) 1,000 mcg Tablet 1,000 mcg PO DAILY ferrous sulfate 325 mg (65 mg iron) Tablet 325 mg PO DAILY latanoprost [Xalatan] 0.005 % Drops 1 drp OPHTHALMIC (EYE) HS methocarbamol 500 mg Tablet 500 mg PO TID sennosides [senna] 8.6 mg Tablet 17.2 mg PO BID furosemide [Lasix] 20 mg Tablet 20 mg PO DAILY polyethylene glycol 3350 [Miralax] 17 gram/dose Powder 17 g PO DAILY ranolazine 500 mg Tablet Extended Release 12 Hr 500 mg PO HS potassium chloride 20 mEq Tablet Extended Release 20 meq PO DAILY warfarin 3 mg Tablet 1.5 mg PO MOWEFRSA sodium chloride 1,000 mg Tablet,Soluble 1,000 mg PO AC diltiazem HCl 120 mg Capsule,Extended Release 24hr 120 mg PO DAILY 14 Days Qty: 14 0RF levofloxacin 750 mg tablet 750 mg PO DAILY 5 Days Qty: 5 0RF Referrals Follow up/Referrals: Provider,Referral, [Referring] - See instructions Clinical Impressions Clinical Impression: CHF exacerbation Print Language Print Language: Persian Discharge ED Provider: Yuval Solares [facility] General Chief Complaint: Shortness of Breath/Dyspnea Stated Complaint: Dyspnea Time Seen by Provider: 05/18/24 08:42 Mode of Arrival: EMS Source of Information: EMS Limitations: No Limitations Description of Symptoms (Recalled from ER Triage Doc. by RN): PT BROUGHT IN VIA EMS, PT REPORTS SHORTNESS OF BREATH X 7 WEEKS. RECENT DISCHARGE ON 05/13/24 FROM [facility] FOR LEFT FEMUR FRACTURE. PT REPORTS WEAKNESS. WOUND NOTED TO RIGHT CALF THAT SHE SAYS HAS BEEN THERE FOR 2-3 DAYS History of Present Illness HPI narrative: Please note that above description of symptoms, in this electronic medical record under categorization of recalled from ER triage doctor by RN are reflective of an initial nursing assessment, however, is not reflective of my full history and physical exam that was personally taken and clarified. Consequentially, this preceding description of symptoms, which may include the patient's categorized chief complaint in the EMR, do not reflect my personal clinical impression, and the ultimate description of history of present illness and patient stated complaints should be deferred to this section of the note. Unless stated otherwise or congruent with this section of the note, additional signs, symptoms, or incongruence should be interpreted as inaccurate with my clinical impression. Related Data Home Medications ?Medication ?Instructions ?Recorded ?Confirmed atorvastatin 80 mg tablet 80 mg PO DAILY 90 days #90 tabs 12/25/18 03/03/24 hydralazine 10 mg tablet 10 mg PO DAILY 90 days #180 tabs 12/25/18 03/03/24 metformin 500 mg tablet,extended 500 mg PO BID 90 days #180 tabs 12/25/18 03/03/24 release 24 hr omeprazole 40 mg capsule,delayed 40 mg PO BID 30 days #30 caps 12/25/18 03/03/24 release ranolazine 500 mg tablet,extended 1,000 mg PO DAILY 30 days #120 tabs 12/25/18 03/03/24 release,12 hr carvedilol 6.25 mg tablet 12.5 mg PO BID 05/12/20 03/03/24 warfarin 2 mg tablet 2 mg PO SUTUTH 05/12/20 05/27/20 cholecalciferol (vitamin D3) 50 50 mcg PO DAILY 03/03/24 03/03/24 mcg (2,000 unit) tablet citalopram 20 mg tablet 20 mg PO DAILY 03/03/24 03/03/24 coenzyme Q10 50 mg tablet 50 mg PO DAILY 03/03/24 03/03/24 cyanocobalamin (vitamin B-12) 1,000 mcg PO DAILY 03/03/24 03/03/24 1,000 mcg tablet ferrous sulfate 325 mg (65 mg 325 mg PO DAILY 03/03/24 03/03/24 iron) tablet furosemide 20 mg tablet (Lasix) 20 mg PO DAILY 03/03/24 03/03/24 latanoprost 0.005 % eye drops 1 drp ophthalmic (eye) HS 03/03/24 03/03/24 (Xalatan) methocarbamol 500 mg tablet 500 mg PO TID 03/03/24 03/03/24 multivitamin-ferrous 1 tab PO DAILY 03/03/24 03/03/24 fumarate-folic acid 18 mg-400 mcg tablet (Centrum) polyethylene glycol 3350 17 17 g PO DAILY 03/03/24 03/03/24 gram/dose oral powder (Miralax) potassium chloride 20 mEq 20 meq PO DAILY 03/03/24 03/03/24 tablet,extended release ranolazine 500 mg tablet,extended 500 mg PO HS 03/03/24 03/03/24 release,12 hr sennosides 8.6 mg tablet (senna) 17.2 mg PO BID 03/03/24 03/03/24 sodium chloride 1,000 mg soluble 1,000 mg PO AC 03/03/24 03/03/24 tablet warfarin 3 mg tablet 1.5 mg PO MOWEFRSA 03/03/24 03/03/24 Previous Rx's ?Medication ?Instructions ?Recorded diltiazem HCl 120 mg 120 mg PO DAILY 14 days #14 caps 03/03/24 capsule,extended release 24 hr levofloxacin 750 mg tablet 750 mg PO DAILY 5 days #5 tabs 03/03/24 Allergies Allergy/AdvReac Type Severity Reaction Status Date / Time nitrofurantoin Allergy Intermediate Rash Verified 03/02/24 16:03 [From Macrodantin] morphine Allergy Unknown Unknown Verified 03/02/24 16:03 allergy reaction [facility] Disclaimer: The information contained in this section may have been updated after the patient was seen, as this information can be updated by other users. Medical History (Updated 05/18/24 @ 10:31 by Yuval Solares MD) Sleep apnea A-fib Emphysema lung Surgical History (Updated 03/07/24 @ 00:00 by Zeynep Gomez) Hx of CABG Social History (Updated 03/02/24 @ 19:03 by Vanessa Pantoja RN) Smoking Status: Never smoker alcohol intake: never substance use type: denies use current occupational status: retired Travel in the last 8 weeks: None household members: spouse housing: house ROS Obtained: Yes All systems reviewed & no additional complaints except as documented Physical Exam General General appearance: alert and in distress Neck Neck exam: Present trachea midline Chest Chest inspection: Present normal inspection and symmetric chest wall rise Respiratory Respiratory exam: Present normal lung sounds bilaterally (Although decreased inferiorly); Absent respiratory distress, wheezes, stridor, accessory muscle use or prolonged expiratory phase Cardiovascular Cardiovascular exam: Present tachycardia, irregular rhythm and other (Pulses equal and symmetric in upper and lower extremities) Abdominal Exam Abdominal exam: Present soft; Absent distention or tenderness Extremities Exam Extremities exam: Absent edema Neurological Exam Neurological exam: Present alert, oriented X3 and CN II-XII intact Skin Skin exam: Present warm and dry; Absent cyanosis, diaphoresis or pallor HEART Score HEART Score HEART Score assessment performed?: Yes History (anamnesis): Moderately suspicious ECG: Normal Age: >65 years Risk factors: 3 or more risk factors Troponin: </= normal limit HEART Score: 5 Procedures Limited Ultrasound Indication:: Limited cardiac ultrasound Indication: Shortness of breath, tachycardia Identified cardiac views: -Cardiac parasternal long axis -Cardiac parasternal short axis Findings: -Cardiac activity present -Gross wall motion normal -Pericardial effusion absent -Right heart strain absent -EPSS 10.4 Impression: -Grossly depressed cardiac function with elevated EPSS concerning for CHF Images were saved to permanent archive The study was technically adequate CPT: 58236 This study was performed by me, and I personally interpreted all images/videos. Based on my clinical judgement, these images were adequate and did not necessitate further imaging Critical Care Critical Care Time Critical Care Time: Yes (CV) Attestation: On 05/18/24, the high probability of a clinically significant, sudden or life threatening deterioration of the following system(s) required my full and direct attention, intervention and personal management. The time I documented below is in addition to time spent performing reported procedures but includes the following listed in this critical care notation. Total Time Total Critical Care Time: 45 Medical Decision Making Medical Records Medical records reviewed: Yes I reviewed the patient's medical records. Magdaleno Inquiry Pt receiving controlled substance: No Magdaleno was queried for this patient: No Vital Signs Vital Signs: 05/18/24 08:37 05/18/24 08:45 05/18/24 09:00 Temperature 97.7 F Temperature Source Oral Pulse Rate 146 H 128 H Pulse Rate [Apical] 116 H Respiratory Rate 20 20 14 Blood Pressure 170/105 H Blood Pressure [Right Arm] 196/129 H Blood Pressure Mean [Right Arm] 151 Blood Pressure Source [Right Arm] Automatic Cuff Blood Pressure Position [Right Arm] Sitting 02 Sat by Pulse Oximetry 98 96 97 Oxygen Delivery Method Room Air 05/18/24 10:00 Temperature Temperature Source Pulse Rate 112 H Pulse Rate [Apical] Respiratory Rate 15 Blood Pressure 158/93 H Blood Pressure [Right Arm] Blood Pressure Mean [Right Arm] Blood Pressure Source [Right Arm] Blood Pressure Position [Right Arm] 02 Sat by Pulse Oximetry 98 Oxygen Delivery Method Room Air Lab Data Labs: Lab Results 05/18/24 08:40: WBC 5.4, RBC 3.46 L, Hgb 12.2, Hct 37.7, MCV 109.0 H, MCH 35.2 H, MCHC 32.3, RDW 15.9, Plt Count 80 L, MPV 9.9, Neut % (Auto) 66.5, Lymph % (Auto) 25.1, Upton % (Auto) 6.0, Eos % (Auto) 1.8, Baso % (Auto) 0.5, Neut # (Auto) 3.6, Lymph # (Auto) 1.4, Upton # (Auto) 0.3, Eos # (Auto) 0.1, Baso # (Auto) 0.0, PT 12.6 H, INR 1.14 H, APTT 28.8, Sodium 138, Potassium 3.1 L, Chloride 109 H, Carbon Dioxide 23, Anion Gap 9.1, BUN 12, Creatinine 0.60, Estimated Creat Clear 40, Estimated GFR 95, Est GFR ( Amer) 115, Glucose 135 H, Calcium 9.2, Magnesium 1.5 L, Total Bilirubin 1.0, AST 34, ALT 29, Alkaline Phosphatase 171 H, Troponin I 0.03, NT-Pro-B Natriuret Pep 7420 H, Total Protein 6.6, Albumin 3.5, Globulin 3.1, Albumin/Globulin Ratio 1.1, TSH 3.02, Thyroxine (T4) 9.5 05/18/24 08:45: VBG pH 7.44 H, VBG pCO2 30.0 L, VBG pO2 49.7 H, VBG HCO3 20.1 L, VBG Total CO2 21.0 L, VBG O2 Saturation 84.5 H, VBG Base Excess -4.0 L, VBG Lactic Acid 2.0 05/18/24 09:02: Lactate 1.4 05/18/24 08:40 05/18/24 08:40 Response Orders (Tests/Meds): ED MEDICATIONS Generic Name Dose Route Start Last Admin Trade Name Drea PRN Reason Stop Dose Admin Furosemide 40 mg 05/19/24 09:00 Furosemide 40mg/4ml Vial IV 06/18/24 08:59 DAILY RUBY Magnesium Sulfate 2 gm in 50 mls @ 50 mls/hr 05/18/24 09:37 05/18/24 09:43 Magnesium Sulfate 2gm/50ml Premix IV 05/18/24 10:36 50 mls/hr ONCE ONE Administration Potassium Chloride/Water 100 mls @ 100 mls/hr 05/18/24 09:37 05/18/24 09:43 Potassium Chloride 10meq/100ml Ivpb IV 05/18/24 10:36 100 mls/hr ONCE ONE Administration Discontinued Medications Generic Name Dose Route Start Last Admin Trade Name Franckq PRN Reason Stop Dose Admin Aspirin 324 mg 05/18/24 08:43 05/18/24 08:47 Aspirin 81mg Chewable Tablet PO 05/18/24 08:44 324 mg ONCE ONE Administration Furosemide 40 mg 05/18/24 08:53 05/18/24 09:15 Furosemide 40mg/4ml Vial IV 05/18/24 08:54 40 mg ONCE ONE Administration Furosemide 40 mg 05/18/24 10:08 Furosemide 40mg/4ml Vial IV 05/18/24 10:09 ONCE ONE Magnesium Oxide 800 mg 05/18/24 09:37 05/18/24 09:43 Magnesium Oxide 400mg Tablet PO 05/18/24 09:38 800 mg ONCE ONE Administration Metoprolol Tartrate 5 mg 05/18/24 08:43 05/18/24 08:48 Metoprolol Tartrate 5mg/5ml Vial IV 05/18/24 08:44 5 mg ONCE ONE Administration Potassium Chloride 60 meq 05/18/24 09:37 05/18/24 09:43 Potassium Chloride 20meq Tab PO 05/18/24 09:38 60 meq ONCE ONE Administration ORDERS Category Date Time Status POCUS Point of Care (ER Only) Stat Exams 05/18/24 08:54 Completed XR chest portable Stat Exams 05/18/24 08:43 Taken Complete Blood Count Auto Diff AMLAB Lab 05/19/24 06:00 Ordered Complete Blood Count Auto Diff Stat Lab 05/18/24 08:40 Completed Comprehensive Metabolic Panel AMLAB Lab 05/19/24 06:00 Ordered Comprehensive Metabolic Panel Stat Lab 05/18/24 08:40 Completed Lactic Acid Stat Lab 05/18/24 09:02 Completed Lipid Panel AMLAB Lab 05/19/24 06:00 Ordered Magnesium AMLAB Lab 05/19/24 06:00 Ordered Magnesium Stat Lab 05/18/24 08:40 Completed NT Pro Brain Natriuretic Pep. Stat Lab 05/18/24 08:40 Completed PT INR [Prothrombin Time INR] Stat Lab 05/18/24 08:40 Completed PTT [Activated Partial Thrombo Time] Stat Lab 05/18/24 08:40 Completed T4 (Thyroxine) Stat Lab 05/18/24 08:40 Completed TSH [Thyroid Stimulating Hormone] Stat Lab 05/18/24 08:40 Completed Troponin I Q3H Lab 05/18/24 11:45 Ordered Troponin I Q3H Lab 05/18/24 14:45 Ordered Troponin I Stat Lab 05/18/24 08:40 Completed Blood Culture Stat Micro 05/18/24 09:02 Received VBG [Venous Blood Gas] Stat RT 05/18/24 08:55 Ordered Venous Blood Gas Stat RT 05/18/24 08:45 Completed CA echo doppler complete Routine Y 05/18/24 10:09 Completed MDM Narrative Medical Decision Narrative: 83-year-old female history of hypertension, hyperlipidemia, CAD status post stenting and CABG, A-fib on warfarin presenting with shortness of breath. Patient states that she has been progressively short of breath over the last 7 weeks. She broke her hip recently, has been at rehab hospital. Because she has been short of breath and tachycardic, they have been telling her just to take her medications and drink plenty of water. She states she has been doing this. Today, straw that broke the camel's back was the fact that she cannot lay flat and sleep at night without feeling like she was smothering. Patient denies cough, fevers, chills, urinary symptoms, chest pain, recent medication changes otherwise, or any other concerns. Intermittently having lower extremity swelling, not currently present. History was obtained via conversation with patient and EMS. On arrival, patient hemodynamically stable, alert, oriented x4, appropriate, GCS 15, moving all extremities spontaneously, pupils equal and reactive to light. Full physical exam performed and significant for anxious appearing female who is in no acute distress. She is hypertensive and tachycardic. Lungs are clear to auscultation anterior and posterior bilaterally, but decreased in inferior lung landaverde. No focal breath sounds. Cardiac exam without obvious murmur, gallop, rub. Difficult to appreciate in the setting of A-fib with RVR. Pulses equal and symmetric in upper and lower extremities. Abdomen is soft, nontender, nondistended. No lower extremity edema. Differential includes ACS, PA, pneumothorax, pneumonia, pleural effusion, pulmonary edema, CHF, metabolic derangement, endocrinologic derangement, medication noncompliance, among others. Patient was given 4 mg aspirin, 5 mg metoprolol IV, supplemental oxygen for comfort for symptomatic management and correction of underlying abnormalities. Patient placed on continuous cardiac monitoring and continuous pulse ox with initial blood pressure 196/129, heart rate 140, saturation 97% on room air. Independent interpretation of EKG shows A-fib RVR [address] or T wave changes concerning for acute ischemia. QRS narrow at 82, QTc 372. Workup independently interpreted and significant for nonactionable CBC. INR subtherapeutic 1.1. pH mixed metabolic acidosis with respiratory alkalosis pH 7.44, bicarb low at 20, CO2 low at 30. Lactate negative. Potassium low at 3.1, magnesium low at 1.5, otherwise nonactionable chemistry. These were repleted IV and p.o. Troponin negative, BNP elevated at 7400. Thyroid studies normal. On independent interpretation of imaging, pulmonary edema and bilateral pleural effusions concerning for fluid overload state. See radiology read for full review of final results. Heart score 5. [id number] ultrasound with depressed cardiac activity, EPSS 10.4. No effusion. 80 mg IV Lasix administered. On reevaluation, patient feeling much better after metoprolol and blood pressure/heart rate management. Given patient presentation, workup, history, this most likely represents acute CHF exacerbation. Because patient high risk for clinical decompensation, deemed appropriate for inpatient admission. Results were relayed to patient who voiced understanding and patient was agreeable to inpatient admission and management. Patient was admitted to the hospital for further definitive management. 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 Electronic pipe manufacture supervisor of the spoken language may permit errors. Although I have reviewed the note, some errors may still exist.
[2024-05-18 09:17] LABS: NT Pro Brain Natriuretic Pep. 7420 pg/mL (0-450); Troponin I 0.03 ng/ml (0.00-0.034)
[2024-05-18 09:21] LABS: T4 (Thyroxine) 9.5 ug/dl (5.53-11.0)
[2024-05-18 09:25] LABS: Activated Partial Thrombo Time 28.8 seconds (22.8-30.6)
[2024-05-18 09:27] LABS: Lactic Acid 1.4 mmol/L (0.7-2.1)
[2024-05-18 09:34] LABS: Thyroid Stimulating Hormone 3.02 uIU/mL (0.465-4.68)
[2024-05-18] MEDS: POTASSIUM CHLORIDE 20MEQ TAB 60 MEQ PO (09:43)
[2024-05-18] MEDS: MAGNESIUM OXIDE 400MG TABLET 800 MG PO (09:43)
[2024-05-18] MEDS: MAGNESIUM SULFATE IN WATER 2 GM/50 ML PIGGYBACK IV (09:43)
[2024-05-18] MEDS: KCl 10mEq/100ml 100 ML 100 MEQ IV (09:43)
--- NOTE | 2024-05-18 09:58 | PC.NURSE ---
Waiting for callback from Dr. Jimenez about pt admission
--- NOTE | 2024-05-18 10:09 | CA_ITS ---
APPROVED REPORT EXAM: Comprehensive 2D, Doppler, and color-flow Echocardiogram Demonstrator Knitting: Brenda Young RVT Ht: 5 ft 3 in Wt: 132lbs BSA: 1.62 BP: 170/105 mmHg Indications: CHF,A-FIB,CABG,CAD,HTN,HLD,SOA TDS-PT SCANNED FLAT ON BACK LIMITED WINDOWS 2D Dimensions LA Volume 80.40 mL LA Volume Index 49.63 mL/m2 (M/F) 16-34 M-Mode Dimensions RVDd 2.76 cm (0.9-2.6) LA Diam 3.91 cm (1.9-4.0) LVDd 4.15 cm (3.5-5.7) LVDs 3.01 cm (3.5-5.7) IVSd 1.25 cm (0.6-1.1) PWd 0.64 cm (0.6-1.1) EF (Teich) 53.80% FS 27.50% EDV (Teich) 76.40 mL ESV (Teich) 35.30 mL LV Diastology E Decel Time 180 (160-240 msec) E/A Ratio 4.7 Aortic Valve FABIEN Index 0.99 cm2/m2 AoV Peak Brandon. 103.0 (50-130 cm/s) AI PHT 355.00 ms AO Peak GR. 4.20 mmHg AO Mean GR. 2.20 (<5 mmHg) AO VTI 15.3 (18-25 cm) FABIEN (VTI) 1.65 (2.5-4.5 cm2) Mitral Valve MV E Max Brandon. 122.0 (40-130 cm/s) MV A Velocity 26.0 (40-130 cm/s) E/A Ratio 4.71 MV PHT 53.0 ms Pulmonary Valve PV Peak Velocity 70.0 (50-150 cm/s) Tricuspid Valve TR P. Velocity 325.00 cm/s RAP Estimate 10.00 mmHg RVSP 52.40 mmHg Left Ventricle The left ventricle is normal size. Left ventricular systolic function is moderately decreased. There is increased LV wall thickness. The inferoseptal and anterolateral LV andino are severely hypokinetic. The septum is asynchronous. There is septal flattening, consistent with elevated right-sided pressures. Diastolic function is indeterminate due to atrial fibrillation. LVEF is 40%. Right Ventricle Right ventricle is severely dilated. Right ventricle is moderately hypokinetic. Atria Left atrium is severely dilated. Right atrium is moderately dilated. There is Doppler evidence of left to right interatrial shunt. Aortic Valve The aortic valve is mildly thickened. There is no aortic valvular stenosis. Mild aortic regurgitation. Mitral Valve The mitral valve leaflets are mildly thickened. Mild mitral regurgitation. No evidence of mitral valve stenosis. Tricuspid Valve The tricuspid valve leaflets are thin and pliable. Moderate to severe tricuspid regurgitation. RVSP is 55-60 mmHg. Pulmonic Valve The pulmonary valve is normal in structure. Mild pulmonic regurgitation. Great Vessels The aortic root is normal in size. The ascending aorta is borderline dilated, measuring 3.7 cm in diameter. The IVC is dilated and collapses < 50% with respirophasic variation. RA pressure is estimated at 15 mmHg. Pericardium There is no pericardial effusion. Other Information Study Quality: Technically Difficult Conclusion Technically difficult study due to poor acoustic windows. Moderate reduction in LV systolic function (LVEF 40%). Severe hypokinesis of the inferoseptal and anterolateral LV andino The septum is asynchronous. Septal flattening is present, consistent with elevated right-sided pressures. Severe RV dilation with moderate reduction in RV function. Biatrial dilation. Mild AI, mild MR, mild PI. Moderate to severe TR. RVSP 55-60 mmHg. Doppler evidence of left to right interatrial shunt, suggestive of presence of interatrial shunt. . Electronically signed by : Nataly Shahid MD 05/21/2024 00:02:23
--- NOTE | 2024-05-18 10:21 | PC.NURSE ---
PT ASSISTED TO BSC, VOIDED AND RETURNED BACK TO BED. CALL LIGHT WITHIN REACH
--- NOTE | 2024-05-18 10:23 | PC.NURSE ---
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
--- OUTSIDE RECORDS SUMMARY | 2024-05-18 10:40 | XMS_ITS | Clinical Summary ---
Author Organization [facility] Address [address] [place] [address] Phone Care Team Providers Care Event Manager Name Role Phone Smita ESCOBEDO, Jorje Arceo [ ] Conditions or Problems Problem Name Problem Code Onset Date Status Entry Date Provider Comment Standard Description Annotate Contusion of left lower leg, subsequent encounter(s) S80.12xD (ICD-10-CM) Active Arlen Feng Contusion of left lower leg, subsequent encounter Cellulitis of LLE L03.116 (ICD-10-CM) Active Arlen Feng Cellulitis of left lower limb DM II with diabetic PVD 946682451 (SNOMED CT) Active Arlen Feng Peripheral vascular disease Benign Essential Hypertension 6110843 (SNOMED CT) Active Arlen Feng Benign essential hypertension Medications Medication Instructions Start Date Stop Date Generic Name [facility] Provider VALSARTAN 160 MG TABS 1 tablet po daily VALSARTAN [id number] Leti Dela Cruz ALPRAZOLAM 0.5 MG TABS Take one by mouth daily/PRN ALPRAZOLAM 53954614243 Lexi Nascimentodox VIBRAMYCIN 100 MG CAPS Take by mouth twice a day DOXYCYCLINE HYCLATE 52767654683 Lexi Gipson TERBINAFINE HCL 250 MG TABS Take one by mouth daily TERBINAFINE HCL 45595602558 Lexi Gipson RANEXA 1000 MG ORAL TABLET EXTENDED RELEASE 12 HOUR Take by mouth twice a day RANOLAZINE 55565146929 Lexi Gipson CLOPIDOGREL BISULFATE 75 MG TABS Take one by mouth daily CLOPIDOGREL BISULFATE 59854996813 Lexi Nascimentodox OMEPRAZOLE 40 MG CPDR Take one by mouth daily OMEPRAZOLE 10602754474 Lexi Nascimentodox NORVASC 10 MG TABS Take one by mouth daily AMLODIPINE BESYLATE 62829858973 Lexi Gipson HYDROCODONE-ACET AMINOPHEN 7.5-325 MG TABS Q6H/PRN HYDROCODONE-ACET AMINOPHEN 15882283162 Lexi Nascimentodox DAILY MULTIVITAMIN CAPS Take one by mouth daily MULTIPLE VITAMINS-MINERAL S 55577570337 Lexi Gipson METFORMIN HCL 500 MG TABS Take by mouth twice a day METFORMIN HCL 48727427793 Lexi Gipson LOVENOX 60 MG/0.6ML SUBCUTANEOUS SOLUTION 70 mg, SubCutaneous, Q12H ENOXAPARIN SODIUM 66229847735 Lexi Gipson LOSARTAN POTASSIUM 100 MG TABS Take one by mouth daily LOSARTAN POTASSIUM 50357303779 Lexi Nascimentodox ACIDOPHILUS LACTOBACILLUS CAPS Take two by mouth daily LACTOBACILLUS 24964163831 Lexi Gipson HYDRALAZINE HCL 50 MG TABS 2 Tab, Oral, BID HYDRALAZINE HCL 84088824967 Lexi Gipson DORZOLAMIDE HCL 2 % SOLN 1 Drop, Eye Right, BID DORZOLAMIDE HCL 05912666872 Lexi Gipson WARFARIN SODIUM 3 MG TABS Take one by mouth daily WARFARIN SODIUM 29270459867 Lexi Nascimentodox CARVEDILOL 6.25 MG TABS Take one by mouth 3 times daily, morning, afternoon and evening. CARVEDILOL 95824636176 Lexi Nascimentodox ATORVASTATIN CALCIUM 80 MG TABS Take one by mouth daily ATORVASTATIN CALCIUM 96901104254 Lexi Gipson AMOXICILLIN-POT CLAVULANATE 875-125 MG TABS Take by mouth twice a day AMOXICILLIN-POT CLAVULANATE 76143964428 Lexi Gipson Medications Administered No information available. [...]
--- NOTE | 2024-05-18 10:43 | PC.NURSE ---
vascular at BS for echo
--- NOTE | 2024-05-18 10:59 | PC.NURSE ---
REPORT CALLED TO MAHENDRA SHANNON
--- NOTE | 2024-05-18 11:04 | PC.NURSE ---
ECHO COMPLETE, MED-SURG NOTIFIED PT IS READY FOR TRANSFER TO ROOM
--- NOTE | 2024-05-18 11:24 | PC.NURSE ---
arrived by stretcher from ED
[2024-05-18 12:30] LABS: Troponin I 0.03 ng/ml (0.00-0.034)
[2024-05-18] MEDS: dilTIAZem 60MG TABLET 60 MG PO ×2 (12:37→20:30)
[2024-05-18] MEDS: dilTIAZem 25MG/5ML VIAL 10 MG IV (13:28)
--- NOTE | 2024-05-18 13:45 | SW/DCPLANNER ---
Addendum entered by Celsa Marquez 05/21/24 10:09: Patient is currently established w/ [facility]. Addendum entered by Celsa Marquez 05/21/24 07:25: Patient information/order has been faxed to [facility]. Original Note: I spoke w/ patient regarding plans once medically stable for discharge. PT/OT evaluated patient and recommended returning home w/ home health services. Patient stated that she was recently released from [facility] and home health services w/ [facility] are set to start the first of next week. I will fax updated patient information/order to [facility] at time of discharge. Discharge date is unknown at this time.
--- NOTE | 2024-05-18 13:48 | HMH.PTEV ---
Physical Therapy Evaluation Rehab PT IP Evaluation Start: 05/18/24 10:12 Freq: ONCE Status: Active Protocol: Document 05/18/24 13:36 ELINA (Rec: 05/18/24 13:45 ELINA [id number]) Subjective/History History History Pt presents to [facility] with SOB and weakness. Pt recently d/c from SNF. Pt has been home since Tuesday. Subjective Subjective Pt reports she lives alone in a single-story home with 0 OREN . Pt used a RW for Mod I ambulation. Pt is receiving PT services. New diagnosis of cancer in past 12 No months? Rehab PT IP Eval Objective Appearance Patient Behavior Appropriate,Cooperative Difficulty following instructions none Speech Pattern Clear Ambulation Patient Able to Ambulate Yes Ambulation Observation IP General Gait Pattern Observation No Deviations/Normal Ambulation Distance (feet) 18 Ambulation Assistive Device Standard Walker Ambulation Ability Contact Guard/Hand Hold Balance Ability to Arise Able, uses arms to help Sitting Balance Steady, safe Standing Balance Steady, wide stance Transfers Bed Transfer Ability Supervision/Stand by Sit to Stand Bed Transfer Ability Contact Guard/Hand Hold Rehab PT IP prob,goals,plan Problems Date of Evaluation: 05/18/24 PT IP Problems Bed Mobility,Transfers,Gait, Balance,Safety Rehab Potential Rehab Potential Good Equipment Needs Assistive Devices Rolling / Wheeled Walker Plan PT Intervention Plan Bed Mobility,Transfers,Gait, Balance,Safety,Therapeutic Exercise Other Intervention Plan 1-2 times PT Plan Frequency Daily Duration LOS Discharge Goals Bed Transfer Ability Supervision/Stand by Sit to Stand Chair Transfer Ability Supervision/Stand by Ambulation Assistive Device Rolling Walker Ambulation Distance (feet) 30 Discharge Plan PT Discharge Plan Initial physical therapy evaluation performed. Patient presents below baseline at this time in functional mobility, transfers, gait, and strength. Pt would benefit from skilled PT while at [facility] to prevent further functional decline and maximize safety with mobility. Pt safe to d/c home when deemed medically necessary d/t current level of mobility and home set-up.. PT recommending home health PT services to address deficits. Eval Complexity Eval Charge Codes 04794 - Moderate Complexity PHYSICIAN CERTIFICATION: I certify the specified therapy services for Miladis Montoya are required, authorized, and reviewed every 30 days.
--- NOTE | 2024-05-18 13:51 | HMH.OTEV ---
OT Inpatient Evaluation Rehab OT IP Evaluation Start: 05/18/24 10:12 Freq: ONCE Status: Active Protocol: Document 05/18/24 13:46 [facility] (Rec: 05/18/24 13:51 [facility] [id number]) Rehab OT IP Assessment Subjective History Pt oriented x 3 on arrival. Pt agreeable to engage in therapy evaluation. Pt admitted on 05/18/24 due to CHF exacerbation. History and Physical report: 83-year-old female history of hypertension, hyperlipidemia, CAD status post stenting and CABG, A-fib on warfarin presenting with shortness of breath. Patient states that she has been progressively short of breath over the last 7 weeks. She broke her hip recently, has been at rehab hospital. Because she has been short of breath and tachycardic, they have been telling her just to take her medications and drink plenty of water. She states she has been doing this. Today, straw that broke the camel's back was the fact that she cannot lay flat and sleep at night without feeling like she was smothering. Patient denies cough, fevers, chills, urinary symptoms, chest pain, recent medication changes otherwise, or any other concerns. Intermittently having lower extremity swelling, not currently present. History was obtained via conversation with patient and EMS. On arrival, patient hemodynamically stable, alert, oriented x4, appropriate, GCS 15, moving all extremities spontaneously, pupils equal and reactive to light. Full physical exam performed and significant for anxious appearing female who is in no acute distress. She is hypertensive and tachycardic. Lungs are clear to auscultation anterior and posterior bilaterally, but decreased in inferior lung landaverde. No focal breath sounds. Cardiac exam without obvious murmur, gallop, rub. Difficult to appreciate in the setting of A-fib with RVR. Pulses equal and symmetric in upper and lower extremities. Abdomen is soft, nontender, nondistended. No lower extremity edema. Differential includes ACS, CO, pneumothorax , pneumonia, pleural effusion, pulmonary edema, CHF, metabolic derangement, endocrinologic derangement, medication noncompliance, among others. Subjective I am ready to be home. Pt reports prior to being in the hospital, she had recently returned home; last Tuesday. She had been at rehab. Since being home, pt claims she is normally able to dress, feed, and sponge bathe herself independently. Pt is able to complete simple IADLs like light cleaning and cooking microwavable meals. She does use a rolling walker during functional transfers. Objective Patient Orientation Person,Place,Birthday Right Upper Extremity Gross ROM WFL Left Upper Extremity Gross ROM WFL Bed Mobility bed mobility-scooting,bed mobility - supine/sit Assist Level Contact Guard/Hand Hold Transfer Training Sit/Stand Transfer Assist Level Minimal x 1 (25% assist) Lower Body Dressing Ability Minimal Assistance Performing Toilet Hygiene Ability Standby Assistance Overall Commode/Toilet Transfer Ability Minimal Assistance Commode/Toilet Transfer Technique Sit to/from Ambulatory Rehab OT IP prob,goals,plan Problems Date of Evaluation: 05/18/24 OT IP Problems Bed Mobility,Transfers,Balance ,Self care,Safety Rehab Potential Rehab Potential Good Equipment Needs Assistive Devices Rolling / Wheeled Walker Plan OT intervention Plan Bed Mobility,Transfers,Balance ,Self care,Safety,Therapeutic Exercise OT Plan Frequency Daily Duration LOS Discharge Goals Bed Mobility Ability Standby Assistance Sit to Stand Chair Transfer Ability Contact Guard/Hand Hold Chair Transfer Ability Contact Guard/Hand Hold Chair Transfer Technique Sit to/from Ambulatory Chair Transfer Assistive Devices Rolling Walker Lower Body Dressing Ability Contact Guard Upper Body Dressing Ability Standby Assistance Bathing Ability Standby Assistance Performing Toilet Hygiene Ability Standby Assistance Overall Commode/Toilet Transfer Ability Standby Assistance Commode/Toilet Transfer Technique Sit to/from Ambulatory Discharge Plan OT Discharge Plan Pt appears to be close to her baseline with functional transfers and ADL independence . Therapist recommends pt return home with HH OT evaluation upon discharge. Continued skilled therapy is important for improved strength, safety, endurance, ADL independence, and functional transfers to reach your PLOF. Eval Complexity Eval Charge Codes 58967 - Moderate Complexity PHYSICIAN CERTIFICATION: I certify the specified therapy services for Miladis Montoya are required, authorized, and reviewed every 30 days.
--- NOTE | 2024-05-18 14:52 | P.HP_ITS ---
History of Present Illness *Admission Date: 05/18/24 *Reason for visit:: dyspnea, orthopnea *History of present illness: 83-year-old female who has had a prolonged course of stay at [facility]. States she was at [facility] from January through April. Just got discharged last Tuesday. She was there for falls and rehab. Fell and broke her hip while she was there 5 weeks ago necessitating surgery. Has been doing well and recovering. Has had multiple changes to her medications which is left her confused about what she is supposed to be taking. Is not currently on any diuretics, her diltiazem has been stopped, and her carvedilol has been reduced. She presented to the ER because of worsening shortness of breath over the past month as she puts it. Most prominent however last night. Has been unable to lay flat to sleep. Hydro she could not catch her breath and points to her throat saying she was choking leading her to come to the hospital. On arrival to the ER, found to be in A-fib with RVR. Workup including imaging and labs showed chest x-ray with pleural effusions and edema. BNP elevated at 7400. Kidney function normal with BUN 12, creatinine 0.6. Has mild electrolyte disturbances. Complains of chest discomfort and feeling her heart racing. Was previously on anticoagulation but due to her falls, risk outweighed benefit and she is only on 81 mg aspirin at this time. On room air. Unable to lay flat, has to sit up. Discussed case with ER physician, request admission for further management and diuresis. On arrival to the floor, she is sitting at bedside eating. Son at bedside who helps supplement history. They both appear to be quite confused about her medications due to recent changes. She is currently living by herself, home health evaluated her this past week. Denies any fever, nausea, vomiting. Has intermittent swelling in her legs. [facility] Disclaimer: The information contained in this section may have been updated after the patient was seen, as this information can be updated by other users. Medical History Sleep apnea A-fib Emphysema lung Surgical History Hx of CABG Social History Smoking Status: Never smoker alcohol intake: never substance use type: denies use current occupational status: retired Travel in the last 8 weeks: None household members: spouse housing: house Review of Systems Review of Systems Review of systems (narrative): 14 point review of systems performed, pertinent positives and negatives as per HPI Meds Home Medications and Allergies Home Medications ?Medication ?Instructions ?Recorded ?Confirmed ?Type metformin 500 mg tablet,extended 500 mg PO BID 90 days #180 tabs 12/25/18 05/18/24 History release 24 hr carvedilol 6.25 mg tablet 12.5 mg PO BID 05/12/20 05/18/24 History cholecalciferol (vitamin D3) 50 50 mcg PO DAILY 03/03/24 05/18/24 History mcg (2,000 unit) tablet citalopram 20 mg tablet 20 mg PO DAILY 03/03/24 05/18/24 History coenzyme Q10 50 mg tablet 50 mg PO DAILY 03/03/24 05/18/24 History cyanocobalamin (vitamin B-12) 1,000 mcg PO DAILY 03/03/24 05/18/24 History 1,000 mcg tablet diltiazem HCl 120 mg 120 mg PO DAILY 14 days #14 caps 03/03/24 05/18/24 Rx capsule,extended release 24 hr ferrous sulfate 325 mg (65 mg 325 mg PO DAILY 03/03/24 05/18/24 History iron) tablet furosemide 20 mg tablet (Lasix) 20 mg PO DAILY 03/03/24 05/18/24 History latanoprost 0.005 % eye drops 1 drp ophthalmic (eye) HS 03/03/24 05/18/24 History (Xalatan) methocarbamol 500 mg tablet 500 mg PO TID 03/03/24 05/18/24 History potassium chloride 20 mEq 20 meq PO DAILY 03/03/24 05/18/24 History tablet,extended release ranolazine 500 mg tablet,extended 500 mg PO HS 03/03/24 05/18/24 History release,12 hr New Prescriptions to Start Prescriptions: Allergies Allergy/AdvReac Type Severity Reaction Status Date / Time nitrofurantoin Allergy Intermediate Rash Verified 03/02/24 16:03 [From Macrodantin] morphine Allergy Unknown Unknown Verified 03/02/24 16:03 allergy reaction Exam Data for Last 24 hours Vital signs and Labs for Last 24 Hours: Temp Pulse Resp BP Pulse Ox O2 Del Method O2 Flow Rate 97.7 F 100 H 18 169/97 H 97 Room Air 2 05/18/24 11:15 05/18/24 12:00 05/18/24 11:15 05/18/24 11:15 05/18/24 10:30 05/18/24 13:00 05/18/24 11:15 Laboratory Results - last 24 hr 05/18/24 08:40: WBC 5.4, RBC 3.46 L, Hgb 12.2, Hct 37.7, MCV 109.0 H, MCH 35.2 H , MCHC 32.3, RDW 15.9, Plt Count 80 L, MPV 9.9, Neut % (Auto) 66.5, Lymph % (Auto) 25.1, [place] % (Auto) 6.0, Eos % (Auto) 1.8, Baso % (Auto) 0.5, Neut # (Auto) 3.6, Lymph # (Auto) 1.4, [place] # (Auto) 0.3, Eos # (Auto) 0.1, Baso # (Auto) 0.0, PT 12.6 H, INR 1.14 H, APTT 28.8, Sodium 138, Potassium 3.1 L, Chloride 109 H, Carbon Dioxide 23, Anion Gap 9.1, BUN 12, Creatinine 0.60, Estimated Creat Clear 40, Estimated GFR 95, Est GFR ( Amer) 115, Glucose 135 H, Calcium 9.2, Magnesium 1.5 L, Total Bilirubin 1.0, AST 34, ALT 29, Alkaline Phosphatase 171 H, Troponin I 0.03, NT-Pro-B Natriuret Pep 7420 H, Total Protein 6.6, Albumin 3.5, Globulin 3.1, Albumin/Globulin Ratio 1.1, TSH 3.02, Thyroxine (T4) 9.5 05/18/24 08:45: VBG pH 7.44 H, VBG pCO2 30.0 L, VBG pO2 49.7 H, VBG HCO3 20.1 L, VBG Total CO2 21.0 L, VBG O2 Saturation 84.5 H, VBG Base Excess -4.0 L, VBG Lactic Acid 2.0 05/18/24 09:02: Lactate 1.4 05/18/24 12:00: Troponin I 0.03 I & O for Last 24 hours: Intake & Output 05/15/24 05/16/24 05/17/24 05/18/24 23:59 23:59 23:59 23:59 Output Total 0 / 0 Balance 0 / 0 Weight 59.874 kg Constitutional Constitutional: no acute distress, average body habitus, chronically ill appearing and cooperative *Routine HEENT Exam Head: Present normocephalic Eye: Present EOMI and PERRL ENT: Present mucous membranes moist *Routine Neck Exam Neck: Present supple; Absent lymphadenopathy *Routine Respiratory Exam Respiratory: Present crackles (Diffuse bilaterally most prominent in lower portions); Absent accessory muscle use, respiratory distress, rhonchi or wheezes *Routine Cardiovascular Exam Cardiovascular: Present tachycardia and irregularly irregular *Routine Abdominal Exam Abdominal: Present soft and normoactive bowel sounds; Absent tenderness *Routine Rectal Exam Rectal:: deferred *Routine Genitalia Exam Genitalia:: deferred *Routine Extremities Exam Extremities: Absent cyanosis, clubbing or edema *Routine Skin Exam Skin: Present warm; Absent rash *Routine Neurological Exam Neurological: Present alert, oriented X3 and moving all extremities; Absent altered mental status Assessment and Plan *Assessment and plan (1) Atrial flutter with rapid ventricular response: Status: Acute Category: Medical Code(s): I48.92 - Unspecified atrial flutter (2) CHF exacerbation: Status: Acute Category: Medical Code(s): I50.9 - Heart failure, unspecified (3) Hx of CABG: Status: Acute Category: Surgical Code(s): Z95.1 - Presence of aortocoronary bypass graft (4) Hypomagnesemia: Status: Acute Category: Medical Code(s): E83.42 - Hypomagnesemia (5) Acute hypokalemia: Status: Acute Category: Medical Code(s): E87.6 - Hypokalemia (6) Acute exacerbation of CHF (congestive heart failure): Status: Acute Qualifiers: Heart failure type: unspecified Qualified Code(s): I50.9 - Heart failure, unspecified Category: Medical Code(s): I50.9 - Heart failure, unspecified Plan 83-year-old female with history of A-fib, weakness, falls, diabetes, anemia. Prolonged stay in rehab, was released this past Tuesday. Presented with worsening shortness of breath. Found to be in CHF exacerbation along with A- fib. Discussed case with ER physician, request admission for diuresis and management of A-fib with RVR. I agreed to admit for further management. Medicines have been changed significantly in the past 2 weeks, patient is confused about what she supposed to be on. Initiating on diltiazem and carvedilol. Diuresing x 1 in the ER. Showing response at this time. Problems addressed as follows: A-fib with RVR Acute on chronic diastolic heart failure Hypokalemia, hypomagnesemia -BNP elevated at 7400, troponin 0.03. Initiated on Lasix IV 80 mg once. Monitoring for negative fluid status -Initiate diltiazem 60 mg every 8 hours. Previously on extended release that was stopped a week ago. -Goal heart rate less than 100. Resume carvedilol 12.5 mg twice daily -Holding Eliquis given frequent falls. Risk of bleed outweighs risk of stroke for anticoagulation benefits. Had several head bleeds with her recent falls. -Magnesium 1.5, potassium 3.1, kidney function normal with BUN 12, creatinine 0.6. Echo obtained and pending. -Replacing electrolytes with potassium oral and magnesium IV -Electrolytes need close monitoring, risk for disturbances with diuresis. BMP ordered for this evening. Ordered CBC, CMP, magnesium for the morning. History of diabetes: A1c obtained at 5.4. Will discontinue metformin. No indication for sliding scale insulin. Recent femur fracture from fall 5 weeks ago, continue hydrocodone 5 mg every 6 hours as needed for severe pain, Tylenol 650 mg every 6 hours as needed for moderate pain. TSH 3 Ranolazine 500 mg nightly for pain and restless leg Citalopram 20 mg daily for mood Full code Holding anticoagulation due to thrombocytopenia and frequent falls Cardiac diet
[2024-05-18] MEDS: HYDROCODONE/APAP 5/325 MG TABLET 1 TAB PO ×2 (14:58→21:38)
[2024-05-18 15:12] LABS: Troponin I 0.03 ng/ml (0.00-0.034)
[2024-05-18 15:30] LABS: Hemoglobin A1C 5.4 % (4.0-6.0)
[2024-05-18 18:25] LABS: Chloride 106 mmol/L (98-107); Sodium 138 mmol/L (136-145)
[2024-05-18 18:29] LABS: Blood Urea Nitrogen 12 mg/dl (7-17); Calcium 9.1 mg/dl (8.4-10.2); Carbon Dioxide 27 mmol/L (22.0-30.0); Creatinine Clearance Estimated 40 mL/min (50-200); Estimated Glomerular Filt Rate 68 ml/min (>60); GFR (African American) 83 ML/MIN (>60); Glucose 166 mg/dl (74-100); Magnesium 1.9 mg/dl (1.6-2.3)
[2024-05-18] MEDS: CARVEDILOL 6.25MG TABLET 12.5 MG PO (20:30)
[2024-05-18] MEDS: RANOLAZINE 500MG ER TABLET 500 MG PO (20:30)
[2024-05-19] VITALS: BP 103/57; PULSE 69; PULSE 70; RESP 16; TEMP 36.9; O2SAT 93
[2024-05-19] MEDS: MELATONIN 5MG TABLET 5 MG PO (00:47)
[2024-05-19 04:00] VITALS: BP 129/66; PULSE 67; PULSE 80; RESP 16; TEMP 36.6; O2SAT 95; BMI 23.1
[2024-05-19] MEDS: dilTIAZem 60MG TABLET 60 MG PO (05:20)
[2024-05-19 07:31] VITALS: BP 113/66; PULSE 74; RESP 18; TEMP 36.3; O2SAT 94
[2024-05-19 07:34] LABS: Eosinophils # 0.1 K/mm3 (0.0-0.4); Lymphocytes # 1.1 K/mm3 (0.7-4.5); Mean Corpuscular HGB Conc 32.6 g/dL (31.8-35.4); Monocytes # 0.3 K/mm3 (0.1-1.0); Neutrophils # 1.9 K/mm3 (1.8-7.8); White Blood Count 3.4 K/mm3 (4.8-10.8)
[2024-05-19 07:36] LABS: Albumin Level 3.2 g/dl (3.5-5.0); Chloride 109 mmol/L (98-107)
[2024-05-19 07:37] LABS: Potassium 3.9 mmoL/L (3.5-5.1); Sodium 137 mmol/L (136-145)
[2024-05-19 07:39] LABS: Alanine Aminotransferase 26 U/L (12-78); Albumin/Globulin Ratio 1.1 (1.1-1.8); Alkaline Phosphatase 152 U/L (38-126); Anion Gap 6.9 mEq/L (5-15); Aspartate Amino Transferase 31 U/L (14-36); Bilirubin,Total 0.8 mg/dl (0.2-1.3); Blood Urea Nitrogen 15 mg/dl (7-17); Carbon Dioxide 25 mmol/L (22.0-30.0); Cholesterol 115 mg/dl (140-200); Creatinine Clearance Estimated 39 mL/min (50-200); Estimated Glomerular Filt Rate 60 ml/min (>60); GFR (African American) 72 ML/MIN (>60); Globulin 2.8 g/dL (1.3-3.2); Triglycerides 96 mg/dl (30-150); VLDL Cholesterol 19 mg/dL (0-40)
[2024-05-19 07:40] LABS: Calcium 8.5 mg/dl (8.4-10.2); Chol/HDL Ratio 3.3 (1-3.5); Glucose 127 mg/dl (74-100); HDL Cholesterol 35 mg/dl (40-60); Magnesium 1.9 mg/dl (1.6-2.3)
[2024-05-19 07:43] LABS: Basophils % 0.5 % (0.1-2.0); Lymphocytes % 31.9 % (10-50); Mean Corpuscular Hemoglobin 35.3 pg (27.0-31.2); Mean Corpuscular Volume 108.3 fl (81-99); Mean Platelet Volume 10.4 fl (7.4-10.4); Monocytes % 8.1 % (1.7-9.3); Neutrophils % 56.5 % (37.0-80.0); Platelet Count 72 K/mm3 (142-424); Red Blood Count 3.05 M/mm3 (4.20-5.40); Red Cell Distribution Width 15.8 % (11.5-17.5)
[2024-05-19 07:45] LABS: Hemoglobin 10.8 g/dL (12.2-16.2)
[2024-05-19 07:51] LABS: Direct LDL Cholesterol 54.35 mg/dL (100-129)
[2024-05-19 08:00] VITALS: PULSE 60
[2024-05-19] MEDS: FUROSEMIDE 40MG/4ML VIAL 40 MG IV (08:59)
[2024-05-19] MEDS: POTASSIUM CHLORIDE 20MEQ TAB 20 MEQ PO (09:00)
[2024-05-19] MEDS: CITALOPRAM 20MG TABLET 20 MG PO (09:00)
[2024-05-19] MEDS: CARVEDILOL 12.5MG TABLET 12.5 MG PO (09:01)
--- NOTE | 2024-05-19 11:26 | EXP.DC.SUM ---
General Admission date:: 05/18/24 Discharge date: 05/19/24 HPI HPI HPI: 83-year-old female who has had a prolonged course of stay at [facility]. States she was at [facility] from January through April. Just got discharged last Tuesday. She was there for falls and rehab. Fell and broke her hip while she was there 5 weeks ago necessitating surgery. Has been doing well and recovering. Has had multiple changes to her medications which is left her confused about what she is supposed to be taking. Is not currently on any diuretics, her diltiazem has been stopped, and her carvedilol has been reduced. She presented to the ER because of worsening shortness of breath over the past month as she puts it. Most prominent however last night. Has been unable to lay flat to sleep. [place] she could not catch her breath and points to her throat saying she was choking leading her to come to the hospital. On arrival to the ER, found to be in A-fib with RVR. Workup including imaging and labs showed chest x-ray with pleural effusions and edema. BNP elevated at 7400. Kidney function normal with BUN 12, creatinine 0.6. Has mild electrolyte disturbances. Complains of chest discomfort and feeling her heart racing. Was previously on anticoagulation but due to her falls, risk outweighed benefit and she is only on 81 mg aspirin at this time. On room air. Unable to lay flat, has to sit up. Discussed case with ER physician, request admission for further management and diuresis. On arrival to the floor, she is sitting at bedside eating. Son at bedside who helps supplement history. They both appear to be quite confused about her medications due to recent changes. She is currently living by herself, home health evaluated her this past week. Denies any fever, nausea, vomiting. Has intermittent swelling in her legs. Hospital Course Hospital Course Hospital Course: 83-year-old female with history of A-fib, weakness, falls, diabetes, anemia. Prolonged stay in rehab, was released this past Tuesday. Presented with worsening shortness of breath. Found to be in CHF exacerbation along with A-fib. Discussed case with ER physician, request admission for diuresis and management of A-fib with RVR. I agreed to admit for further management. Patient had confusion about her medications given recent discharge from rehab facility and visit with her PCP. This likely led to her uncontrolled A-fib, volume overload, admission. Adjustments made to medications. Feeling better by morning. Stable on room air. Stable to discharge home with medication adjustments. All questions answered. Problems addressed as follows: A-fib with RVR Acute on chronic diastolic heart failure Hypokalemia, hypomagnesemia -BNP elevated at 7400, troponin 0.03. Initiated on Lasix IV 80 mg once. Monitoring for negative fluid status. Had good response with diuresis. Improved shortness of breath by morning. Rate controlled on diltiazem 60 mg every 8 hours. Initiated on long-acting diltiazem 180 mg on morning of discharge with good rate control, heart rate less than 90. Anticoagulation contraindicated given patient's previous falls and head bleeds. Risk of bleeding outweighs benefit of anticoagulation at this time. Had extensive discussion with patient, she and son agree with this decision. Continue carvedilol 12.5 mg twice a. Continue aspirin 81 mg daily. Continue Lasix 40 mg daily for fluid status. Electrolytes necessitating replacement. Continue potassium and magnesium supplementation at discharge. Potassium 3.9, magnesium 1.9 on day of discharge. Kidney function normal with BUN 15, creatinine 0.9. History of diabetes: A1c obtained at 5.4. Will discontinue metformin. Recommend repeat A1c in 3-month. Recent femur fracture from fall 5 weeks ago, continue hydrocodone 5 mg every 6 hours as needed for severe pain, Tylenol 650 mg every 6 hours as needed for moderate pain. Pain doing better during admission. Continuing ranolazine 500 mg extended release nightly for peripheral artery disease and pain thereof. Evaluated by therapy, stable to discharge home with home health PT. Thyroid function normal with TSH of 3 Continue citalopram 20 mg daily for mood Noted to have lesion on her right lower extremity. Will treat for 5 days with Keflex and mupirocin topically. No significant systemic infection. White count low, no fever. No significant drainage from wound. Anticipate improvement with continued diuresis and antibiotics. Close follow-up with PCP for further management. Total time spent on discharge 38 minutes in counseling, documentation, chart review, and direct care with patient. Exam Data for Last 24 hours Vital signs and Labs for Last 24 Hours: Temp Pulse Resp BP Pulse Ox O2 Del Method O2 Flow Rate 97.4 F L 60 18 113/66 94 L Nasal Cannula 2 05/19/24 07:31 05/19/24 08:00 05/19/24 07:31 05/19/24 07:31 05/19/24 07:31 05/19/24 08:54 05/19/24 08:54 Laboratory Results - last 24 hr 05/18/24 08:40: Hemoglobin A1c 5.4 05/18/24 12:00: Troponin I 0.03 05/18/24 14:40: Troponin I 0.03 05/18/24 18:12: Sodium 138, Potassium 4.0 D, Chloride 106, Carbon Dioxide 27, Anion Gap 9.0, BUN 12, Creatinine 0.80 D, Estimated Creat Clear 40, Estimated GFR 68, Est GFR ( Amer) 83 D, Glucose 166 H D, Calcium 9.1, Magnesium 1.9 D 05/19/24 06:58: WBC 3.4 L D, RBC 3.05 L, Hgb 10.8 L D, Hct 33.0 L, MCV 108.3 H, MCH 35.3 H, MCHC 32.6, RDW 15.8, Plt Count 72 L, MPV 10.4, Neut % (Auto) 56.5, Lymph % (Auto) 31.9, [place] % (Auto) 8.1, Eos % (Auto) 3.0, Baso % (Auto) 0.5, Neut # (Auto) 1.9, Lymph # (Auto) 1.1, [place] # (Auto) 0.3, Eos # (Auto) 0.1, Baso # (Auto) 0.0, Sodium 137, Potassium 3.9, Chloride 109 H, Carbon Dioxide 25, Anion Gap 6.9, BUN 15, Creatinine 0.90, Estimated Creat Clear 39, Estimated GFR 60, Est GFR ( Amer) 72, Glucose 127 H D, Calcium 8.5, Magnesium 1.9, Total Bilirubin 0.8, AST 31, ALT 26, Alkaline Phosphatase 152 H, Total Protein 6.0 L, Albumin 3.2 L, Globulin 2.8, Albumin/Globulin Ratio 1.1, Triglycerides 96, Cholesterol 115 L, LDL Cholesterol Direct 54.35 L, VLDL Cholesterol 19, HDL Cholesterol 35 L, Cholesterol/HDL Ratio 3.3 I & O for Last 24 hours: Intake & Output 07/05/17/24 05/18/24 05/19/24 23:59 23:59 23:59 23:59 Intake Total 630 / 630 Output Total 0 / 0 0 / 0 Balance 630 / 630 0 / 0 Weight 59.874 kg 59.285 kg Microbiology Reports for the Last 24 Hours: Microbiology 05/18/24 09:02 Blood Blood Culture - Preliminary NO GROWTH AFTER 24 HOURS 05/18/24 09:00 Blood Blood Culture - Preliminary NO GROWTH AFTER 24 HOURS Constitutional Constitutional: no acute distress, thin, chronically ill appearing and cooperative *Routine HEENT Exam Head: Present normocephalic Eye: Present EOMI and PERRL ENT: Present mucous membranes moist *Routine Neck Exam Neck: Present supple; Absent lymphadenopathy *Routine Respiratory Exam Respiratory: Present crackles (Faint in lower lung [place]) and normal respiratory effort; Absent rhonchi or wheezes *Routine Cardiovascular Exam Cardiovascular: Present irregularly irregular Comments: Rate controlled *Routine Abdominal Exam Abdominal: Present soft and normoactive bowel sounds; Absent tenderness *Routine Rectal Exam Patient deferred: visual exam *Routine Exam Patient deferred: external exam *Routine Extremities Exam Extremities: Present edema (Trace lower extremity edema); Absent cyanosis or clubbing Comments: Lesion right lower leg lateral portion, appears to be a bruise with a scab over it that has early infection. No significant purulent drainage. *Routine Skin Exam Skin: Present intact, warm and wounds (Right lower extremity); Absent rash *Routine Neurological Exam Neurological: Present alert, oriented X3 and moving all extremities; Absent altered mental status Results Data Completed and Pending Labs on day of discharge: Labs from last 24 hours 05/19/24 05/18/24 05/18/24 06:58 18:12 14:40 WBC 3.4 L D RBC 3.05 L Hgb 10.8 L D Hct 33.0 L MCV 108.3 H MCH 35.3 H MCHC 32.6 RDW 15.8 Plt Count 72 L MPV 10.4 Neut % (Auto) 56.5 Lymph % (Auto) 31.9 [place] % (Auto) 8.1 Eos % (Auto) 3.0 Baso % (Auto) 0.5 Neut # (Auto) 1.9 Lymph # (Auto) 1.1 [place] # (Auto) 0.3 Eos # (Auto) 0.1 Baso # (Auto) 0.0 Sodium 137 138 Potassium 3.9 4.0 D Chloride 109 H 106 Carbon Dioxide 25 27 Anion Gap 6.9 9.0 BUN 15 12 Creatinine 0.90 0.80 D Estimated Creat Clear 39 40 Estimated GFR 60 68 Est GFR ( Amer) 72 83 D Glucose 127 H D 166 H D Hemoglobin A1c Calcium 8.5 9.1 Magnesium 1.9 1.9 D Total Bilirubin 0.8 AST 31 ALT 26 Alkaline Phosphatase 152 H Troponin I 0.03 Total Protein 6.0 L Albumin 3.2 L Globulin 2.8 Albumin/Globulin Ratio 1.1 Triglycerides 96 Cholesterol 115 L LDL Cholesterol Direct 54.35 L VLDL Cholesterol 19 HDL Cholesterol 35 L Cholesterol/HDL Ratio 3.3 05/18/24 05/18/24 12:00 08:40 WBC RBC Hgb Hct MCV MCH MCHC RDW Plt Count MPV Neut % (Auto) Lymph % (Auto) [place] % (Auto) Eos % (Auto) Baso % (Auto) Neut # (Auto) Lymph # (Auto) [place] # (Auto) Eos # (Auto) Baso # (Auto) Sodium Potassium Chloride Carbon Dioxide Anion Gap BUN Creatinine Estimated Creat Clear Estimated GFR Est GFR ( Amer) Glucose Hemoglobin A1c 5.4 Calcium Magnesium Total Bilirubin AST ALT Alkaline Phosphatase Troponin I 0.03 Total Protein Albumin Globulin Albumin/Globulin Ratio Triglycerides Cholesterol LDL Cholesterol Direct VLDL Cholesterol HDL Cholesterol Cholesterol/HDL Ratio Preliminary micro results at discharge 05/18/24 09:02 Blood Culture - Preliminary Blood NO GROWTH AFTER 24 HOURS 05/18/24 09:00 Blood Culture - Preliminary Blood NO GROWTH AFTER 24 HOURS DS: Diagnosis Discharge Diagnosis (1) Atrial flutter with rapid ventricular response: Status: Acute Code(s): I48.92 - Unspecified atrial flutter (2) CHF exacerbation: Status: Acute Code(s): I50.9 - Heart failure, unspecified (3) Hx of CABG: Status: Acute Code(s): Z95.1 - Presence of aortocoronary bypass graft (4) Hypomagnesemia: Status: Acute Code(s): E83.42 - Hypomagnesemia (5) Acute hypokalemia: Status: Acute Code(s): E87.6 - Hypokalemia (6) Stasis ulcer of right lower extremity: Status: Acute Code(s): I83.019 - Varicose veins of right lower extremity with ulcer of unspecified site; L97.919 - Non-pressure chronic ulcer of unspecified part of right lower leg with unspecified severity Meds Home Medications and Allergies Home Medications ?Medication ?Instructions ?Recorded ?Confirmed ?Type cholecalciferol (vitamin D3) 50 50 mcg PO DAILY 03/03/24 05/18/24 History mcg (2,000 unit) tablet ferrous sulfate 325 mg (65 mg 325 mg PO DAILY 03/03/24 05/18/24 History iron) tablet latanoprost 0.005 % eye drops 1 drp ophthalmic (eye) HS 03/03/24 05/18/24 History (Xalatan) aspirin 81 mg tablet,delayed 81 mg PO DAILY #30 tabs 05/19/24 Rx release carvedilol 12.5 mg tablet 12.5 mg PO BID 30 days #60 tabs 05/19/24 Rx cephalexin 500 mg capsule 500 mg PO BID 5 days #10 caps 05/19/24 Rx citalopram 20 mg tablet 20 mg PO DAILY 30 days #30 tabs 05/19/24 Rx diltiazem HCl 180 mg 180 mg PO DAILY 30 days #30 caps 05/19/24 Rx capsule,extended release 24 hr furosemide 40 mg tablet (Lasix) 40 mg PO DAILY #30 tabs 05/19/24 Rx hydrocodone 5 mg-acetaminophen 325 1 tab PO Q6HP PRN Severe Pain 05/19/24 Rx mg tablet (7-10) 3 days #11 tabs mupirocin 2 % topical ointment 1 applic topical TID 7 days #22 05/19/24 Rx grams potassium chloride 20 mEq 20 meq PO DAILY 30 days #30 tabs 05/19/24 Rx tablet,extended release ranolazine 500 mg tablet,extended 500 mg PO HS 30 days #30 tabs 05/19/24 Rx release,12 hr New Prescriptions to Start Prescriptions: aspirin Tony,Kervin carvedilol Tony,Kervin cephalexin Tony,Kervin citalopram Tony,Kervin diltiazem HCl Tony,Kervin furosemide [Lasix] Tony,Kervin hydrocodone-acetaminophen Tony,Kervin mupirocin Tony,Kervin potassium chloride Tony,Kervin ranolazine Tony,Kervin Allergies Allergy/AdvReac Type Severity Reaction Status Date / Time nitrofurantoin Allergy Intermediate Rash Verified 03/02/24 16:03 [From Macrodantin] morphine Allergy Unknown Unknown Verified 03/02/24 16:03 allergy reaction Discharge Plan Disposition Patient Disposition: Home Health Service Condition: Fair Discharge Order Discharge Orders: Discharge Order (Routine); Ordered 05/19/24 Ordered By: Kervin Jimenez Follow up Plan Follow up with: Jay Howell MD [Primary Care Provider] - 05/22/24 3:00 pm Prescriptions/Medication Reconciliation: New diltiazem HCl 180 mg Capsule,Extended Release 24hr 180 mg PO DAILY 30 Days Qty: 30 0RF hydrocodone-acetaminophen 5-325 mg Tablet 1 tab PO Q6HP PRN (Reason: Severe Pain (7-10)) 3 Days Qty: 11 0RF cephalexin 500 mg capsule 500 mg PO BID 5 Days Qty: 10 0RF mupirocin 2 % ointment 1 applic topical TID 7 Days Qty: 22 0RF aspirin 81 mg tablet,delayed release (DR/EC) 81 mg PO DAILY Qty: 30 0RF furosemide [Lasix] 40 mg tablet 40 mg PO DAILY Qty: 30 0RF Continued cholecalciferol (vitamin D3) 50 mcg (2,000 unit) Tablet 50 mcg PO DAILY ferrous sulfate 325 mg (65 mg iron) Tablet 325 mg PO DAILY latanoprost [Xalatan] 0.005 % Drops 1 drp OPHTHALMIC (EYE) HS carvedilol 12.5 mg Tablet 12.5 mg PO BID 30 Days Qty: 60 0RF Rx Instructions: must administer with a meal/food citalopram 20 mg Tablet 20 mg PO DAILY 30 Days Qty: 30 0RF ranolazine 500 mg Tablet Extended Release 12 Hr 500 mg PO HS 30 Days Qty: 30 0RF potassium chloride 20 mEq Tablet Extended Release 20 meq PO DAILY 30 Days Qty: 30 0RF Discontinued metformin 500 mg tablet extended release 24 hr 500 mg PO BID 90 Days Qty: 180 coenzyme Q10 50 mg Tablet 50 mg PO DAILY cyanocobalamin (vitamin B-12) 1,000 mcg Tablet 1,000 mcg PO DAILY methocarbamol 500 mg Tablet 500 mg PO TID furosemide [Lasix] 20 mg Tablet 20 mg PO DAILY diltiazem HCl 120 mg Capsule,Extended Release 24hr 120 mg PO DAILY 14 Days Qty: 14 0RF Problem Reconciliation Problems Reviewed?: Yes Patient Discharge Instructions ACTIVITY: Continue current activity and Ambulate as tolerated DIET: continue same diet Patient Instructions: DI for Heart Failure Print Language: Slovak Providers Primary Care Provider: Jay Howell Admit Provider: Kervin Jimenez Attending Provider: Kervin Jimenez
[2024-05-19 12:00] VITALS: BP 126/68; PULSE 70; PULSE 80; RESP 19; TEMP 36.4; O2SAT 97
[2024-05-19] MEDS: dilTIAZem HCL 180MG CAP.ER.24H 180 MG PO (12:01)
--- NOTE | 2024-05-23 12:26 | SW/DCPLANNER ---
Follow up phone call: patient stated that she is doing well at home. Patient was able to picker tender all medications, followed up w/ PCP yesterday and home health services have already started.
== END 2024-05-19 14:15 | disposition home health service (06) ==
LOC: ER 10:31 → 2ND 10:42
PROVIDERS: Admitting Provider Internal Medicine Adolescent Medicine; Emergency Provider Emergency Medicine; PCP Emergency Medicine; Visit Provider Internal Medicine Adolescent Medicine
DX: I48.92 Unspecified atrial flutter (principal); R29.6 Repeated falls; Z60.2 Problems related to living alone; I48.91 Unspecified atrial fibrillation; R06.02 Shortness of breath; I50.33 Acute on chronic diastolic (congestive) heart failure; E87.6 Hypokalemia; E87.79 Other fluid overload; Z95.1 Presence of aortocoronary bypass graft; E83.42 Hypomagnesemia; Z79.01 Long term (current) use of anticoagulants; Z79.899 Other long term (current) drug therapy; I83.018 Varicose veins of right lower extremity with ulcer other part of lower leg; L97.911 Non-pressure chronic ulcer of unspecified part of right lower leg limited to breakdown of skin
CPT/HCPCS: 36415; 71045; 80048; 80053; 80061; 82803; 83036; 83605; 83735; 83880; 84436; 84443; 84484; 85025; 85610; 85730; 87040; 93005; 93306; 97116; 97162; 97166; 97530; 99291; G0378; J1940; J3475; J3480

== ENCOUNTER 2024-06-13 11:27 | Outpatient (CLI) | payer MEDICARE, SELFPAY ==
[2024-06-13 15:44] LABS: Alanine Aminotransferase 45 U/L (12-78); Albumin Level 3.7 g/dl (3.5-5.0); Albumin/Globulin Ratio 1.1 (1.1-1.8); Alkaline Phosphatase 139 U/L (38-126); Anion Gap 10.6 mEq/L (5-15); Aspartate Amino Transferase 33 U/L (14-36); Bilirubin,Total 0.4 mg/dl (0.2-1.3); Blood Urea Nitrogen 30 mg/dl (7-17); Calcium 9.7 mg/dl (8.4-10.2); Carbon Dioxide 21 mmol/L (22.0-30.0); Chloride 106 mmol/L (98-107); Estimated Glomerular Filt Rate 80 ml/min (>60); GFR (African American) 96 ML/MIN (>60); Globulin 3.4 g/dL (1.3-3.2); Glucose 233 mg/dl (74-100); Potassium 4.6 mmoL/L (3.5-5.1); Sodium 133 mmol/L (136-145); Total Protein,Serum 7.1 g/dl (6.3-8.2)
== END 2024-06-13 23:59 | disposition home or self-care (01) ==
LOC: LAB.DROPOF 11:28
PROVIDERS: PCP Emergency Medicine; Visit Provider Emergency Medicine
DX: E87.5 Hyperkalemia (principal)
CPT/HCPCS: 80053

== ENCOUNTER 2024-06-25 13:26 | Emergency (ER) | payer MEDICARE, SELFPAY ==
[2024-06-25] VITALS (7 sets, daily range): BP systolic 156–196; BP diastolic 100–128; PULSE 60–109; RESP 13–21; TEMP 36.5–36.7; O2SAT 97–100; BMI 23.8
--- NOTE | 2024-06-25 13:31 | ECG_ITS ---
APPROVED REPORT Exam: Resting ECG HR:91 bpm ECG Measurements Heart Rate 91 AXES QRSd 93 QRS 87 QT 336 T 78 QTc 385 Conclusion ATRIAL FIBRILLATION versus flutter with variable block ANTEROSEPTAL MYOCARDIAL INFARCTION , OF INDETERMINATE AGE [40+ ms Q WAVE IN V1-V4] ABNORMAL ECG Electronically signed by : LESLEY ALFONSO, 06/25/2024 23:13:55
--- NOTE | 2024-06-25 13:49 | XR_ITS ---
FINAL REPORT CLINICAL HISTORY: fall FINDINGS: SINGLE VIEW PELVIS: A single view of the pelvis was obtained. There are postoperative changes of the right hip and left femur. Mild degenerative changes are present. There is no acute fracture or dislocation. Vizualized joint spaces are normally aligned. Soft tissues are unremarkable. Vascular calcifications are noted. IMPRESSION: No acute bony abnormality. Reviewed, Interpreted and Dictated by Ramón Veliz III, MD Transcribed by Kelsi Srivastava Authenticated and [facility]
--- NOTE | 2024-06-25 13:49 | CT_ITS ---
FINAL REPORT CLINICAL HISTORY: dizziness fall, injury COMPARISON: 03/02/2024 FINDINGS: Axial images of the head were obtained without contrast. Coronal reformatted images were also obtained. This study was performed with techniques to keep radiation doses as low as reasonably achievable (ALARA). Individualized dose reduction techniques using automated exposure control or adjustment of mA and/or kV according to the patient''s size were employed. There is right cerebellar encephalomalacia, new from prior exam. There is generalized age-appropriate atrophy. Periventricular low-attenuation areas are seen consistent with mild chronic ischemic changes. There is no evidence of intracranial hemorrhage or mass. There is no evidence of acute infarct. There is no evidence of shift of the midline structures. No skull abnormality is seen on the bone window images. IMPRESSION: Atrophy and mild periventricular chronic ischemic changes with area of new cerebellar encephalomalacia. No acute intracranial abnormality identified. Reviewed, Interpreted and Dictated by Ramón Veliz III, MD Transcribed by Kelsi Srivastava Authenticated and [facility]
--- NOTE | 2024-06-25 13:49 | CT_ITS ---
FINAL REPORT TECHNIQUE: Axial images were obtained from skull base to the thoracic inlet by computed tomography. Coronal and sagittal reconstruction process performed. This study was performed with techniques to keep radiation doses as low as reasonably achievable (ALARA). Individualized dose reduction techniques using automated exposure control or adjustment of mA and/or kV according to the patient''s size were employed. CLINICAL HISTORY: dizziness, fall, injury FINDINGS: There is no acute fracture. There is mild anterolisthesis of C4 on C5 and C5 on C6. There are moderate degenerative changes. No significant spinal or neuroforaminal canal stenosis is seen. The disc spaces are preserved. The facets are normally aligned. The soft tissues are unremarkable. Limited images of the lung apices are unremarkable. IMPRESSION: No acute fracture. Reviewed, Interpreted and Dictated by Ramón Veliz III, MD Transcribed by Kelsi Srivastava Authenticated and . [facility]
--- NOTE | 2024-06-25 13:49 | XR_ITS ---
FINAL REPORT TECHNIQUE: Single view chest CLINICAL HISTORY: dyspnea COMPARISON: 05/18/2024 FINDINGS: A single view of the chest was obtained. The heart and mediastinum are within normal limits. The lungs are clear. There is no pneumothorax. Osseous structures are unremarkable. IMPRESSION: No acute cardiopulmonary process. Reviewed, Interpreted and Dictated by Ramón Veliz III, MD Transcribed by Kelsi Srivastava Authenticated and [facility]
--- NOTE | 2024-06-25 13:49 | CT_ITS ---
FINAL REPORT TECHNIQUE: Thin section axial CT with IV contrast supplemented with multiplanar reconstruction under CT angiogram protocol. 3-D reconstructions were performed. This study was performed with techniques to keep radiation doses as low as reasonably achievable (ALARA). Individualized dose reduction techniques using automated exposure control or adjustment of mA and/or kV according to the patient''s size were employed. CLINICAL HISTORY: dizziness, fall, injury FINDINGS: The distal vertebral, basilar and distal internal carotid arteries have an unremarkable appearance. No aneurysm is seen. Major intracranial vessels are patent without significant stenosis. IMPRESSION: No evidence of major branch occlusion. Reviewed, Interpreted and Dictated by Ramón Veliz III, MD Transcribed by Kelsi Srivastava Authenticated and [facility]
--- NOTE | 2024-06-25 13:49 | CT_ITS ---
FINAL REPORT CLINICAL HISTORY: dizziness, fall, injury FINDINGS: CTA NECK Thin section axial CT with contrast with multiplanar reconstruction NASCET criteria and technique was utilized during interpretation. Aortic arch: Arch shows no significant narrowing. Great vessel origins are widely patent . There is calcified plaque of the carotid arteries. Mild stenosis is seen of the bilateral proximal internal carotid arteries. Right carotid: No significant stenosis is seen of the cervical common or internal carotid artery . Left carotid: No significant stenosis is seen of the cervical common or internal carotid artery . Vertebrals: Left vertebral artery is dominant. No significant stenosis is present . IMPRESSION: Mild stenoses of the bilateral proximal ICAs without significant stenosis. Reviewed, Interpreted and Dictated by Ramón Veliz III, MD Transcribed by Kelsi Srivastava Authenticated and . [facility]
[2024-06-25] MEDS: ACETAMINOPHEN 1,000MG/100ML VIAL 1000 MG IV (14:01)
[2024-06-25] MEDS: LACTATED RINGERS 1000ML 500 ML 999 ML IV (14:01)
[2024-06-25 14:02] LABS: Basophils # 0.1 K/mm3 (0-0.2); Basophils % 1.6 % (0.1-2.0); Eosinophils # 0.2 K/mm3 (0.0-0.4); Eosinophils % 1.9 % (0.1-12.0); Hematocrit 43.9 % (37.0-47.0); Hemoglobin 13.9 g/dL (12.2-16.2); Lymphocytes # 1.7 K/mm3 (0.7-4.5); Lymphocytes % 21.3 % (10-50); Mean Corpuscular HGB Conc 31.6 g/dL (31.8-35.4); Mean Corpuscular Hemoglobin 33.5 pg (27.0-31.2); Mean Platelet Volume 9.4 fl (7.4-10.4); Monocytes # 0.4 K/mm3 (0.1-1.0); Monocytes % 4.8 % (1.7-9.3); Neutrophils # 5.7 K/mm3 (1.8-7.8); Neutrophils % 70.4 % (37.0-80.0); Platelet Count 113 K/mm3 (142-424); Red Blood Count 4.14 M/mm3 (4.20-5.40); Red Cell Distribution Width 14.8 % (11.5-17.5); White Blood Count 8.1 K/mm3 (4.8-10.8)
[2024-06-25 14:07] LABS: Alanine Aminotransferase 47 U/L (12-78); Albumin Level 3.5 g/dl (3.5-5.0); Alkaline Phosphatase 96 U/L (38-126); Anion Gap 6.9 mEq/L (5-15); Aspartate Amino Transferase 38 U/L (14-36); Bilirubin,Total 0.6 mg/dl (0.2-1.3); Blood Urea Nitrogen 27 mg/dl (7-17); Calcium 8.9 mg/dl (8.4-10.2); Carbon Dioxide 23 mmol/L (22.0-30.0); Chloride 107 mmol/L (98-107); Creatinine Clearance Estimated 39 mL/min (50-200); Estimated Glomerular Filt Rate 80 ml/min (>60); GFR (African American) 96 ML/MIN (>60); Globulin 3.4 g/dL (1.3-3.2); Glucose 148 mg/dl (74-100); Magnesium 1.9 mg/dl (1.6-2.3); Potassium 4.9 mmoL/L (3.5-5.1); Sodium 132 mmol/L (136-145); Total Protein,Serum 6.9 g/dl (6.3-8.2)
--- NOTE | 2024-06-25 14:07 | HMH.EDGENADL ---
Discharge Plan Disposition Patient Disposition: Home, Self-Care Chief Complaint: Fall Prescriptions Prescriptions: No Action cholecalciferol (vitamin D3) 50 mcg (2,000 unit) Tablet 50 mcg PO DAILY ferrous sulfate 325 mg (65 mg iron) Tablet 325 mg PO DAILY latanoprost [Xalatan] 0.005 % Drops 1 drp OPHTHALMIC (EYE) HS diltiazem HCl 180 mg Capsule,Extended Release 24hr 180 mg PO DAILY 30 Days Qty: 30 0RF hydrocodone-acetaminophen 5-325 mg Tablet 1 tab PO Q6HP PRN (Reason: Severe Pain (7-10)) 3 Days Qty: 11 0RF cephalexin 500 mg capsule 500 mg PO BID 5 Days Qty: 10 0RF mupirocin 2 % ointment 1 applic topical TID 7 Days Qty: 22 0RF aspirin 81 mg tablet,delayed release (DR/EC) 81 mg PO DAILY Qty: 30 0RF carvedilol 12.5 mg Tablet 12.5 mg PO BID 30 Days Qty: 60 0RF Rx Instructions: must administer with a meal/food citalopram 20 mg Tablet 20 mg PO DAILY 30 Days Qty: 30 0RF ranolazine 500 mg Tablet Extended Release 12 Hr 500 mg PO HS 30 Days Qty: 30 0RF potassium chloride 20 mEq Tablet Extended Release 20 meq PO DAILY 30 Days Qty: 30 0RF furosemide [Lasix] 40 mg tablet 40 mg PO DAILY Qty: 30 0RF Referrals Follow up/Referrals: Provider,Referral, [Referring] - See instructions Activity Restrictions/Add. Instructions Additional Instructions/Restrictions: At this time it was felt you are safe to be discharged home. If new or worsening symptoms please do not hesitate to return the emergency department. Clinical Impressions Clinical Impression: Frequent falls, Minor head injury, Dizziness Print Language Print Language: Turkish Discharge ED Provider: Delgado Joy General Adult HPI <Ramakrishna Moeller MD - Last Filed: 06/25/24 14:23> General Chief complaint: Fall Stated complaint: fall Time Seen by Provider: 06/25/24 13:38 Mode of Arrival: EMS Source of Information: Patient Limitations: No Limitations Description of Symptoms (Recalled from ER Triage Doc. by RN): pt presents to Ed via EMS for fall. pt reports she was attempting to feed her animals on her front porch, she got tripped up and had a fall hitting her head on the concrete., pt reports headache and back pain. pt arrived in collar History of Present Illness HPI narrative: Patient is an 83-year-old female presenting today with dizziness fall and a head injury. She states that earlier this year in January she had a fall that had multiple fractures associated with that also intracranial hemorrhage. At that time she was chronically anticoagulated on Coumadin for atrial fibrillation but has been since taken off that. She was in rehab for 4 months and was discharged in April. She has not fallen since that time until today. She states that today she was outside bending over to feed her cats when she got very dizzy fell and struck her head on the banister. She was screaming was unable to get up and her neighbor called EMS. She only complains of headache some mild neck discomfort at this point. She has been only taking a daily aspirin is not on any further anticoagulation. Related Data Home Medications ?Medication ?Instructions ?Recorded ?Confirmed cholecalciferol (vitamin D3) 50 50 mcg PO DAILY 03/03/24 05/18/24 mcg (2,000 unit) tablet ferrous sulfate 325 mg (65 mg 325 mg PO DAILY 03/03/24 05/18/24 iron) tablet latanoprost 0.005 % eye drops 1 drp ophthalmic (eye) HS 03/03/24 05/18/24 (Xalatan) Previous Rx's ?Medication ?Instructions ?Recorded aspirin 81 mg tablet,delayed 81 mg PO DAILY #30 tabs 05/19/24 release carvedilol 12.5 mg tablet 12.5 mg PO BID 30 days #60 tabs 05/19/24 cephalexin 500 mg capsule 500 mg PO BID 5 days #10 caps 05/19/24 citalopram 20 mg tablet 20 mg PO DAILY 30 days #30 tabs 05/19/24 diltiazem HCl 180 mg 180 mg PO DAILY 30 days #30 caps 05/19/24 capsule,extended release 24 hr furosemide 40 mg tablet (Lasix) 40 mg PO DAILY #30 tabs 05/19/24 hydrocodone 5 mg-acetaminophen 325 1 tab PO Q6HP PRN Severe Pain 05/19/24 mg tablet (7-10) 3 days #11 tabs mupirocin 2 % topical ointment 1 applic topical TID 7 days #22 08/03/24 grams potassium chloride 20 mEq 20 meq PO DAILY 30 days #30 tabs 05/19/24 tablet,extended release ranolazine 500 mg tablet,extended 500 mg PO HS 30 days #30 tabs 05/19/24 release,12 hr Allergies Allergy/AdvReac Type Severity Reaction Status Date / Time nitrofurantoin Allergy Intermediate Rash Verified 03/02/24 16:03 [From Macrodantin] morphine Allergy Unknown Unknown Verified 03/02/24 16:03 allergy reaction PFSH <Ramakrishna Moeller MD - Last Filed: 06/25/24 14:23> [facility] Disclaimer: The information contained in this section may have been updated after the patient was seen, as this information can be updated by other users. Medical History Sleep apnea A-fib Emphysema lung Surgical History Hx of CABG Social History Smoking Status: Never smoker alcohol intake: never substance use type: denies use current occupational status: retired Travel in the last 8 weeks: None household members: spouse housing: house <Ramakrishna Moeller MD - Last Filed: 06/25/24 14:23> ROS Obtained: Yes All systems reviewed & no additional complaints except as documented Physical Exam <Ramakrishna Moeller MD - Last Filed: 06/25/24 14:23> General General appearance: alert Head Head exam: atraumatic and normocephalic Neck Neck exam: Present other (In a c-collar); Absent tenderness Chest Chest inspection: Present normal inspection; Absent symmetric chest wall rise Respiratory Respiratory exam: Present normal lung sounds bilaterally; Absent respiratory distress Cardiovascular Cardiovascular exam: Present regular rate and normal rhythm Abdominal Exam Abdominal exam: Present soft; Absent distention or tenderness Extremities Exam Extremities exam: Present other (Skin abrasions and superficial avulsions on the right elbow but normal range of motion no other significant skin abnormality) Back Exam Back exam: Absent tenderness Neurological Exam Neurological exam: Present alert and oriented X3 Medical Decision Making <Ramakrishna Moeller MD - Last Filed: 06/25/24 14:23> [facility] Inquiry Pt receiving controlled substance: No Vital Signs: 06/25/24 13:30 06/25/24 13:39 06/25/24 14:00 Temperature 97.7 F Temperature Source Oral Pulse Rate 98 H 109 H Pulse Rate [Left Radial] 89 Respiratory Rate 20 16 15 Blood Pressure 181/103 H 165/100 H Blood Pressure [Right Arm] 196/111 H Blood Pressure Mean [Right Arm] 139 02 Sat by Pulse Oximetry 99 97 99 Oxygen Delivery Method Room Air Room Air Room Air 06/25/24 14:30 06/25/24 15:30 Temperature Temperature Source Pulse Rate 104 H 60 Pulse Rate [Left Radial] Respiratory Rate 15 21 Blood Pressure 187/100 H 186/105 H Blood Pressure [Right Arm] Blood Pressure Mean [Right Arm] 02 Sat by Pulse Oximetry 99 99 Oxygen Delivery Method Room Air Room Air Lab Data Lab Results 06/25/24 13:47: WBC 8.1, RBC 4.14 L, Hgb 13.9, Hct 43.9, MCV 106.0 H, MCH 33.5 H, MCHC 31.6 L, RDW 14.8, Plt Count 113 L, MPV 9.4, Neut % (Auto) 70.4, Lymph % (Auto) 21.3, [place] % (Auto) 4.8, Eos % (Auto) 1.9, Baso % (Auto) 1.6, Neut # (Auto) 5.7, Lymph # (Auto) 1.7, [place] # (Auto) 0.4, Eos # (Auto) 0.2, Baso # (Auto) 0.1, Sodium 132 L, Potassium 4.9, Chloride 107, Carbon Dioxide 23, Anion Gap 6.9, BUN 27 H, Creatinine 0.70, Estimated Creat Clear 39, Estimated GFR 80, Est GFR ( Amer) 96, Glucose 148 H, Calcium 8.9, Magnesium 1.9, Total Bilirubin 0.6, AST 38 H, ALT 47, Alkaline Phosphatase 96, Troponin I < 0.01, Total Protein 6.9, Albumin 3.5, Globulin 3.4 H, Albumin/Globulin Ratio 1.0 L, TSH 3.72 06/25/24 13:47 06/25/24 13:47 Orders (Tests/Meds): ED MEDICATIONS Generic Name Dose Route Start Last Admin Trade Name Freq PRN Reason Stop Dose Admin Sodium Chloride 10 ml 06/25/24 15:02 06/25/24 15:03 Sodium Chloride 0.9% 10ml Syr (Rad Only) IV 07/25/24 15:01 10 ml NEEDED PRN Administration Maintain IV Site Discontinued Medications Generic Name Dose Route Start Last Admin Trade Name Drea PRN Reason Stop Dose Admin Acetaminophen 1,000 mg 06/25/24 13:54 06/25/24 14:01 Acetaminophen 1,000mg/100ml Vial IV 06/25/24 13:55 1,000 mg ONCE ONE Administration Lactated Ringer's 500 mls @ 999 mls/hr 06/25/24 14:00 06/25/24 14:01 Lactated Ringer's 1000 Ml Bag IV 06/25/24 14:30 999 mls/hr .Q31M RUBY Administration Iopamidol 80 ml 06/25/24 15:02 06/25/24 15:03 Iopamidol-370 (76%);100ml Bottle IV 06/25/24 15:03 80 ml ONCE ONE Administration Sodium Chloride 50 ml 06/25/24 15:02 06/25/24 15:02 0.9 % Sodium Chloride 50 Ml Vial IV 06/25/24 15:03 50 ml ONCE ONE Administration ORDERS Category Date Time Status CT angio head Stat Cat Scan 06/25/24 13:[address] angio neck Stat Cat Scan 06/25/24 13:[address] cervical spine wo con Stat Cat Scan 06/25/24 13:[address] head/brain wo con Stat Cat Scan 06/25/24 13:49 Completed CXR --portable [XR chest portable] Stat Exams 06/25/24 13:49 Completed Pelvis XR 1-2 views [XR pelvis 1-2V] Stat Exams 06/25/24 13:49 Completed CBC w/Auto Diff [Complete Blood Count Auto Diff] Stat Lab 06/25/24 13:47 Completed CMP [Comprehensive Metabolic Panel] Stat Lab 06/25/24 13:47 Completed Magnesium Stat Lab 06/25/24 13:47 Completed TSH [Thyroid Stimulating Hormone] Stat Lab 06/25/24 13:47 Completed Trop I [Troponin I] Stat Lab 06/25/24 13:47 Completed Troponin I Q3H Lab 06/25/24 17:00 Ordered Troponin I Q3H Lab 06/25/24 20:00 Ordered Medical Decision Narrative: 83-year-old female presents today with dizziness a fall and head injury. She is very concerned about a recurrent intracranial hemorrhage. Also will get CT angio in addition a noncontrasted CT scan of her head and cervical spine to rule out any type of vascular pathology such as posterior circulation abnormalities. She has no longer on anticoagulation given her GCS of 15 and nonfocal neurologic exam I suspect she most likely does not have an intracranial hemorrhage but that is on the differential. Also will get a chest and pelvis given her fall but she does not have any chest abdomen or pelvis tenderness will not get CT scans of those regions. Also will work her up from the syncopal standpoint but this does not seem that she lost consciousness but was more of a positional dizziness. She has a nonfocal neurologic exam on my assessment at this moment. Unlikely to be an arrhythmia. EKG was performed which I first interpreted shows atrial fibrillation ventricular of 91 no acute ischemic changes noted there is normal axis no other significant conduction abnormalities. Care will be transitioned to Dr. Yeyo Joy at 3 PM for further evaluation management and final disposition <Delgado Joy MD - Last Filed: 06/25/24 16:31> Vital Signs: 06/25/24 13:30 06/25/24 13:39 06/25/24 14:00 Temperature 97.7 F Temperature Source Oral Pulse Rate 98 H 109 H Pulse Rate [Left Radial] 89 Respiratory Rate 20 16 15 Blood Pressure 181/103 H 165/100 H Blood Pressure [Right Arm] 196/111 H Blood Pressure Mean [Right Arm] 139 02 Sat by Pulse Oximetry 99 97 99 Oxygen Delivery Method Room Air Room Air Room Air 06/25/24 14:30 06/25/24 15:30 Temperature Temperature Source Pulse Rate 104 H 60 Pulse Rate [Left Radial] Respiratory Rate 15 21 Blood Pressure 187/100 H 186/105 H Blood Pressure [Right Arm] Blood Pressure Mean [Right Arm] 02 Sat by Pulse Oximetry 99 99 Oxygen Delivery Method Room Air Room Air Lab Data Lab Results 06/25/24 13:47: WBC 8.1, RBC 4.14 L, Hgb 13.9, Hct 43.9, MCV 106.0 H, MCH 33.5 H, MCHC 31.6 L, RDW 14.8, Plt Count 113 L, MPV 9.4, Neut % (Auto) 70.4, Lymph % (Auto) 21.3, [place] % (Auto) 4.8, Eos % (Auto) 1.9, Baso % (Auto) 1.6, Neut # (Auto) 5.7, Lymph # (Auto) 1.7, [place] # (Auto) 0.4, Eos # (Auto) 0.2, Baso # (Auto) 0.1, Sodium 132 L, Potassium 4.9, Chloride 107, Carbon Dioxide 23, Anion Gap 6.9, BUN 27 H, Creatinine 0.70, Estimated Creat Clear 39, Estimated GFR 80, Est GFR ( Amer) 96, Glucose 148 H, Calcium 8.9, Magnesium 1.9, Total Bilirubin 0.6, AST 38 H, ALT 47, Alkaline Phosphatase 96, Troponin I < 0.01, Total Protein 6.9, Albumin 3.5, Globulin 3.4 H, Albumin/Globulin Ratio 1.0 L, TSH 3.72 Orders (Tests/Meds): ED MEDICATIONS Generic Name Dose Route Start Last Admin Trade Name Freq PRN Reason Stop Dose Admin Sodium Chloride 10 ml 06/25/24 15:02 06/25/24 15:03 Sodium Chloride 0.9% 10ml Syr (Rad Only) IV 07/25/24 15:01 10 ml NEEDED PRN Administration Maintain IV Site Discontinued Medications Generic Name Dose Route Start Last Admin Trade Name Freq PRN Reason Stop Dose Admin Acetaminophen 1,000 mg 06/25/24 13:54 06/25/24 14:01 Acetaminophen 1,000mg/100ml Vial IV 06/25/24 13:55 1,000 mg ONCE ONE Administration Lactated Ringer's 500 mls @ 999 mls/hr 06/25/24 14:00 06/25/24 14:01 Lactated Ringer's 1000 Ml Bag IV 06/25/24 14:30 999 mls/hr .Q31M RUBY Administration Iopamidol 80 ml 06/25/24 15:02 06/25/24 15:03 Iopamidol-370 (76%);100ml Bottle IV 06/25/24 15:03 80 ml ONCE ONE Administration Sodium Chloride 50 ml 06/25/24 15:02 06/25/24 15:02 0.9 % Sodium Chloride 50 Ml Vial IV 06/25/24 15:03 50 ml ONCE ONE Administration ORDERS Category Date Time Status CT angio head Stat Cat Scan 06/25/24 13:[address] angio neck Stat Cat Scan 06/25/24 13:[address] cervical spine wo con Stat Cat Scan 06/25/24 13:[address] head/brain wo con Stat Cat Scan 06/25/24 13:49 Completed CXR --portable [XR chest portable] Stat Exams 06/25/24 13:49 Completed Pelvis XR 1-2 views [XR pelvis 1-2V] Stat Exams 06/25/24 13:49 Completed CBC w/Auto Diff [Complete Blood Count Auto Diff] Stat Lab 06/25/24 13:47 Completed CMP [Comprehensive Metabolic Panel] Stat Lab 06/25/24 13:47 Completed Magnesium Stat Lab 06/25/24 13:47 Completed TSH [Thyroid Stimulating Hormone] Stat Lab 06/25/24 13:47 Completed Trop I [Troponin I] Stat Lab 06/25/24 13:47 Completed Troponin I Q3H Lab 06/25/24 17:00 Ordered Troponin I Q3H Lab 06/25/24 20:00 Ordered Medical Decision Narrative: 83-year-old female presents today with dizziness a fall and head injury. She is very concerned about a recurrent intracranial hemorrhage. Also will get CT angio in addition a noncontrasted CT scan of her head and cervical spine to rule out any type of vascular pathology such as posterior circulation abnormalities. She has no longer on anticoagulation given her GCS of 15 and nonfocal neurologic exam I suspect she most likely does not have an intracranial hemorrhage but that is on the differential. Also will get a chest and pelvis given her fall but she does not have any chest abdomen or pelvis tenderness will not get CT scans of those regions. Also will work her up from the syncopal standpoint but this does not seem that she lost consciousness but was more of a positional dizziness. She has a nonfocal neurologic exam on my assessment at this moment. Unlikely to be an arrhythmia. EKG was performed which I first interpreted shows atrial fibrillation ventricular of 91 no acute ischemic changes noted there is normal axis no other significant conduction abnormalities. Care will be transitioned to Dr. Yeyo Joy at 3 PM for further evaluation management and final disposition. Delgado Joy upon assumption of care patient was hemodynamically stable. Workup reviewed by me, hematologic labs are nonactionable, initial troponin undetectably low. Noncontrasted CT scan informally reviewed by me, no obvious cerebellar hemorrhage. Formal read shows atrophy with no acute intracranial abnormality, there is cerebellar encephalomalacia. Head and neck CTA no critical occlusion or stenosis. No fracture of the cervical spine. On repeat evaluation patient was well-appearing, ambulatory bedside, nonfocal neurologic exam on my assessment tolerating p.o. Given this patient is appropriate for discharge at this time. Critical Care <Ramakrishna Moeller MD - Last Filed: 06/25/24 14:23> Critical Care Time Critical Care Time: No
[2024-06-25 14:24] LABS: Troponin I < 0.01 ng/ml (0.00-0.034)
[2024-06-25 14:38] LABS: Thyroid Stimulating Hormone 3.72 uIU/mL (0.465-4.68)
--- NOTE | 2024-06-25 14:56 | PC.NURSE ---
pt gone to ct
[2024-06-25] MEDS: 0.9 % SODIUM CHLORIDE 50 ML VIAL IV (15:02)
[2024-06-25] MEDS: IOPAMIDOL-370 (76%);100ML BOTTLE 80 ML IV (15:03)
[2024-06-25] MEDS: SODIUM CHLORIDE 0.9% 10ML SYR (RAD ONLY) 10 ML IV (15:03)
--- NOTE | 2024-06-25 15:10 | PC.NURSE ---
pt arrived back to room from ct
--- NOTE | 2024-06-25 15:13 | PC.NURSE ---
pt ambulated to restroom with two assist near by no complications at this time
--- NOTE | 2024-06-25 16:30 | PC.NURSE ---
Dr. Joy at bedside updating pt
== END 2024-06-25 16:42 | disposition home or self-care (01) ==
PROVIDERS: Student in an Organized Health Care Education/Training Program; Emergency Provider Emergency Medicine; PCP Emergency Medicine
DX: S09.90XA Unspecified injury of head, initial encounter (principal); R42 Dizziness and giddiness; E87.1 Hypo-osmolality and hyponatremia; R29.6 Repeated falls; W18.30XA Fall on same level, unspecified, initial encounter; I48.92 Unspecified atrial flutter
CPT/HCPCS: 70450; 70496; 70498; 71045; 72125; 72170; 80053; 83735; 84443; 84484; 85025; 93005; 96374; 99285; J0131; J7120; Q9967

== ENCOUNTER 2024-08-02 09:47 | Emergency (ER) | payer MEDICARE, SELFPAY ==
[2024-08-02] VITALS (7 sets, daily range): BP systolic 175–209; BP diastolic 97–104; PULSE 88–93; RESP 13–20; TEMP 36.6–36.7; O2SAT 95–99; BMI 23.8
--- NOTE | 2024-08-02 09:49 | PC.NURSE ---
DR ARRIAZA AT BEDSIDE
--- NOTE | 2024-08-02 09:56 | XR_ITS ---
FINAL REPORT CLINICAL HISTORY: fall, concern for tib plat FINDINGS: RIGHT TIBIA AND FIBULA There is an oblique, mildly displaced fracture through the tibial diaphysis. There is also a mildly impacted fracture of the proximal fibula. Multiple surgical clips are noted. There is an old fracture of the mid fibula.. The joint spaces are intact. There is no soft tissue abnormality. IMPRESSION: Oblique, mildly displaced fracture through the tibial diaphysis and mildly impacted fracture of the proximal fibula. Reviewed, Interpreted and Dictated by Dustin Penny MD Transcribed by Kelsi Srivastava Authenticated and [facility]
--- NOTE | 2024-08-02 09:56 | CT_ITS ---
FINAL REPORT TECHNIQUE: Axial images were obtained from skull base to the thoracic inlet by computed tomography. Coronal and sagittal reconstruction process performed. This study was performed with techniques to keep radiation doses as low as reasonably achievable (ALARA). Individualized dose reduction techniques using automated exposure control or adjustment of mA and/or kV according to the patient''s size were employed. CLINICAL HISTORY: fell, hit head, h/o [facility] FINDINGS: There is no acute fracture or subluxation. There is advanced disc space narrowing at C6-7 with prominent anterior osteophytes. The facets are normally aligned. The soft tissues are unremarkable. Limited images of the lung apices are unremarkable. Dense vascular calcification is seen at the carotid bifurcations. IMPRESSION: No acute fracture. Reviewed, Interpreted and Dictated by Dustin Penny MD Transcribed by eKlsi Srivastava Authenticated and [facility]
--- NOTE | 2024-08-02 09:56 | XR_ITS ---
FINAL REPORT CLINICAL HISTORY: fall, R hip injury and tenderness groin FINDINGS: RIGHT HIP 3 views of the right hip demonstrate no acute fracture or dislocation. Patient is status post right hip prosthesis. The joint spaces appear normal. The visualized bony structures are well aligned. No soft tissue abnormality is seen. IMPRESSION: No acute bony abnormality of the right hip. Reviewed, Interpreted and Dictated by Dustin Penny MD Transcribed by Kelsi Srivastava Authenticated and [facility]
--- NOTE | 2024-08-02 09:56 | XR_ITS ---
FINAL REPORT CLINICAL HISTORY: fall onto R knee, swelling overlying tib plat FINDINGS: RIGHT KNEE There is an oblique, mildly displaced fracture through the tibial diaphysis. There is also a mildly impacted fracture of the proximal fibula. The knee joint is intact. IMPRESSION: Oblique, mildly displaced fracture to the tibial diaphysis and mildly impacted fracture of the proximal fibula. Reviewed, Interpreted and Dictated by Dustin Penny MD Transcribed by Kelsi Srivastava Authenticated and . [facility]
--- NOTE | 2024-08-02 09:56 | CT_ITS ---
FINAL REPORT TECHNIQUE: Axial images were performed through the brain.This study was performed with techniques to keep radiation doses as low as reasonably achievable, (ALARA). Individualized dose reduction techniques using automated exposure control or adjustment of mA and/or kV according to the patient''s size were employed. CLINICAL HISTORY: fell, hit head, h/o [facility] COMPARISON: 06/25/2024 FINDINGS: There is moderate global atrophy. Patchy decreased attenuation is seen throughout the deep white matter. 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 The ventricles are normal in size for the degree of atrophy. There is no extra-axial fluid or midline shift. There is no evidence of acute hemorrhage or mass. Lobular mucoperiosteal thickening is seen of the left maxillary sinus. IMPRESSION: Atrophy and chronic finding. No acute intracranial process. Reviewed, Interpreted and Dictated by Dustin Penny MD Transcribed by Kelsi Srivastava Authenticated and . [facility]
--- NOTE | 2024-08-02 09:56 | XR_ITS ---
FINAL REPORT CLINICAL HISTORY: fall, R femur pain proximally without deformity FINDINGS: RIGHT FEMUR 2 views were obtained. There is no acute fracture or dislocation. Patient is status post right hip arthroplasty. Visualized joint spaces are normally aligned. Soft tissues are unremarkable. IMPRESSION: No acute bony abnormality. Reviewed, Interpreted and Dictated by Dustin Penny MD Transcribed by Kelsi Srivastava Authenticated and . [facility]
--- NOTE | 2024-08-02 10:06 | PC.NURSE ---
XR AT BEDSIDE
[2024-08-02] MEDS: HYDROMORPHONE 2MG/ML SYRINGE 0.25 MG IV (10:09)
[2024-08-02] MEDS: ONDANSETRON 4MG/2ML VIAL 4 MG IV (10:09)
--- NOTE | 2024-08-02 10:29 | PC.NURSE ---
PT TO CT
--- NOTE | 2024-08-02 10:41 | CT_ITS ---
FINAL REPORT TECHNIQUE: Thin section axial CT images with coronal and sagittal reformats were performed. This study was performed with techniques to keep radiation doses as low as reasonably achievable (ALARA). Individualized dose reduction techniques using automated exposure control or adjustment of mA and/or kV according to the patient''s size were employed. CLINICAL HISTORY: rule out plateau fracture FINDINGS: There is an oblique, displaced fracture of the proximal tibial diaphysis which is mildly medially comminuted. This does not extend to the tibial plateau. There is no evidence of tibial plateau fracture as clinically questioned. There is also a mildly displaced and impacted fracture of the proximal fibula. There is mild chondrocalcinosis. An old healed fracture is seen of the proximal third of the fibula. IMPRESSION: Fractures as above without evidence of the tibial plateau fracture. Reviewed, Interpreted and Dictated by Dustin Penny MD Transcribed by Kelsi Srivastava Authenticated and [facility]
--- NOTE | 2024-08-02 10:57 | ECG_ITS ---
APPROVED REPORT Exam: Resting ECG HR:88 bpm ECG Measurements Heart Rate 88 AXES MO 154 P 266 QRSd 100 QRS 76 QT 380 T -90 QTc 426 Conclusion Atrial flutter controlled rate 2-1 AV conduction No acute ischemic change Electronically signed by : MEG ARRIAZA, 08/02/2024 14:54:33
[2024-08-02] MEDS: HYDROMORPHONE 2MG/ML SYRINGE 0.5 MG IV (11:10)
--- NOTE | 2024-08-02 11:10 | ED_ITS ---
Discharge Plan Disposition Patient Disposition: Xfer Short-Term Hosp Chief Complaint: Fall Prescriptions Prescriptions: No Action cholecalciferol (vitamin D3) 50 mcg (2,000 unit) Tablet 50 mcg PO DAILY ferrous sulfate 325 mg (65 mg iron) Tablet 325 mg PO DAILY latanoprost [Xalatan] 0.005 % Drops 1 drp OPHTHALMIC (EYE) HS diltiazem HCl 180 mg Capsule,Extended Release 24hr 180 mg PO DAILY 30 Days Qty: 30 0RF hydrocodone-acetaminophen 5-325 mg Tablet 1 tab PO Q6HP PRN (Reason: Severe Pain (7-10)) 3 Days Qty: 11 0RF cephalexin 500 mg capsule 500 mg PO BID 5 Days Qty: 10 0RF mupirocin 2 % ointment 1 applic topical TID 7 Days Qty: 22 0RF aspirin 81 mg tablet,delayed release (DR/EC) 81 mg PO DAILY Qty: 30 0RF carvedilol 12.5 mg Tablet 12.5 mg PO BID 30 Days Qty: 60 0RF Rx Instructions: must administer with a meal/food citalopram 20 mg Tablet 20 mg PO DAILY 30 Days Qty: 30 0RF ranolazine 500 mg Tablet Extended Release 12 Hr 500 mg PO HS 30 Days Qty: 30 0RF potassium chloride 20 mEq Tablet Extended Release 20 meq PO DAILY 30 Days Qty: 30 0RF furosemide [Lasix] 40 mg tablet 40 mg PO DAILY Qty: 30 0RF Referrals Follow up/Referrals: Jay Howell MD [Primary Care Provider] - See instructions Clinical Impressions Clinical Impression: Closed tibial fracture, Closed right fibular fracture Print Language Print Language: Amharic Discharge ED Provider: Yuval Solares General Adult HPI General Chief complaint: Fall Stated complaint: fall Time Seen by Provider: 08/02/24 09:55 Mode of Arrival: EMS Source of Information: Patient Limitations: No Limitations Description of Symptoms (Recalled from ER Triage Doc. by RN): pt presents to ED via EMS for right knee pain. pt had fall this am while going form bedroom to bathroom. ems reports pt was found on the ground when they arrived on scene. pt had obvious disloaction of right kneecap. ems able to use traction and get kneecap into place. pt reports pain and nausea related to the pain. History of Present Illness HPI narrative: Please note that above description of symptoms, in this electronic medical record under categorization of recalled from ER triage doctor by RN are reflective of an initial nursing assessment, however, is not reflective of my full history and physical exam that was personally taken and clarified. Consequentially, this preceding description of symptoms, which may include the patient's categorized chief complaint in the EMR, do not reflect my personal clinical impression, and the ultimate description of history of present illness and patient stated complaints should be deferred to this section of the note. Unless stated otherwise or congruent with this section of the note, additional signs, symptoms, or incongruence should be interpreted as inaccurate with my clinical impression. Related Data Home Medications ?Medication ?Instructions ?Recorded ?Confirmed cholecalciferol (vitamin D3) 50 50 mcg PO DAILY 03/03/24 05/18/24 mcg (2,000 unit) tablet ferrous sulfate 325 mg (65 mg 325 mg PO DAILY 03/03/24 05/18/24 iron) tablet latanoprost 0.005 % eye drops 1 drp ophthalmic (eye) HS 03/03/24 05/18/24 (Xalatan) Previous Rx's ?Medication ?Instructions ?Recorded aspirin 81 mg tablet,delayed 81 mg PO DAILY #30 tabs 05/19/24 release carvedilol 12.5 mg tablet 12.5 mg PO BID 30 days #60 tabs 05/19/24 cephalexin 500 mg capsule 500 mg PO BID 5 days #10 caps 05/19/24 citalopram 20 mg tablet 20 mg PO DAILY 30 days #30 tabs 05/19/24 diltiazem HCl 180 mg 180 mg PO DAILY 30 days #30 caps 05/19/24 capsule,extended release 24 hr furosemide 40 mg tablet (Lasix) 40 mg PO DAILY #30 tabs 05/19/24 hydrocodone 5 mg-acetaminophen 325 1 tab PO Q6HP PRN Severe Pain 05/19/24 mg tablet (7-10) 3 days #11 tabs mupirocin 2 % topical ointment 1 applic topical TID 7 days #22 05/19/24 grams potassium chloride 20 mEq 20 meq PO DAILY 30 days #30 tabs 05/19/24 tablet,extended release ranolazine 500 mg tablet,extended 500 mg PO HS 30 days #30 tabs 05/19/24 release,12 hr Allergies Allergy/AdvReac Type Severity Reaction Status Date / Time nitrofurantoin Allergy Intermediate Rash Verified 03/02/24 16:03 [From Macrodantin] morphine Allergy Unknown Unknown Verified 03/02/24 16:03 allergy reaction PFSH [facility] Disclaimer: The information contained in this section may have been updated after the patient was seen, as this information can be updated by other users. Medical History Sleep apnea A-fib Emphysema lung Surgical History Hx of CABG Social History Smoking Status: Never smoker alcohol intake: never substance use type: denies use current occupational status: retired Travel in the last 8 weeks: None household members: spouse housing: house Other Medical History Have you received the Flu Vaccine for this season: No Have you received the Pneumonia Vaccine: No ROS Obtained: Yes All systems reviewed & no additional complaints except as documented Physical Exam General General appearance: alert and in distress (Mild distress secondary to pain) Head Head exam: atraumatic and normocephalic Eye Eye exam: Present normal appearance, PERRL and EOMI Neck Neck exam: Present normal inspection, full ROM and trachea midline Respiratory Respiratory exam: Absent respiratory distress, wheezes, stridor, accessory muscle use or prolonged expiratory phase Cardiovascular Cardiovascular exam: Present regular rate, normal rhythm and other (Pulses equal symmetric in upper and lower extremities) Abdominal Exam Abdominal exam: Present soft; Absent distention, tenderness or pulsatile mass Extremities Exam Extremities exam: Present other (Per [facility]) Neurological Exam Neurological exam: Present alert, oriented X3 and CN II-XII intact; Absent motor sensory deficit Skin Skin exam: Present warm and dry; Absent diaphoresis or erythema Medical Decision Making Medical Records Medical records reviewed: Yes I reviewed the patient's medical records. Screening: Per USPSTF and CDC recommendations, given the prevalence of disease in our region, it is our hospital?s policy to screen for HIV and viral Hepatitis for all patients aged 18 and over and those with ongoing risk factors. Magdal[place] Inquiry Pt receiving controlled substance: No Mag[place] was queried for this patient: No Vital Signs: 08/02/24 09:46 08/02/24 09:47 08/02/24 09:48 Temperature 97.9 F Temperature Source Oral Pulse Rate 92 H 91 H Pulse Rate [Left Radial] 90 Respiratory Rate 20 Blood Pressure 193/102 H 209/104 H Blood Pressure [Right Arm] 193/102 H Blood Pressure Mean Blood Pressure Mean [Right Arm] 132 02 Sat by Pulse Oximetry 99 99 99 Oxygen Delivery Method Room Air Room Air Room Air 08/02/24 10:00 08/02/24 10:15 08/02/24 11:30 Temperature Temperature Source Pulse Rate 92 H 93 H 88 Pulse Rate [Left Radial] Respiratory Rate Blood Pressure 175/97 H 175/97 H 182/99 H Blood Pressure [Right Arm] Blood Pressure Mean 132 Blood Pressure Mean [Right Arm] 02 Sat by Pulse Oximetry 99 98 95 Oxygen Delivery Method Room Air Room Air Room Air Lab Data Lab Results 08/02/24 11:03: WBC 7.0, RBC 3.37 L, Hgb 12.2, Hct 35.1 L, MCV 104.3 H, MCH 36.2 H, MCHC 34.7, RDW 16.1, Plt Count 118 L, MPV 8.6, Neut % (Auto) 77.0, Lymph % (Auto) 15.3, [place] % (Auto) 6.0, Eos % (Auto) 1.1, Baso % (Auto) 0.6, Neut # (Auto) 5.4, Lymph # (Auto) 1.1, [place] # (Auto) 0.4, Eos # (Auto) 0.1, Baso # (Auto) 0.0, PT 11.9, INR 1.07, APTT 25.9, Sodium 132 L, Potassium 4.5, Chloride 103, Carbon Dioxide 22, Anion Gap 11.5, BUN 35 H, Creatinine 1.00, Estimated Creat Clear 39, Estimated GFR 53 L, Est GFR ( Amer) 64, Glucose 174 H, Calcium 9.3, Total Bilirubin 0.9, AST 43 H, ALT 43, Alkaline Phosphatase 91, Total Protein 7.0, Albumin 4.0, Globulin 3.0, Albumin/Globulin Ratio 1.3 08/02/24 11:03 08/02/24 11:03 Orders (Tests/Meds): ED MEDICATIONS Discontinued Medications Generic Name Dose Route Start Last Admin Trade Name Freq PRN Reason Stop Dose Admin Hydromorphone HCl 0.25 mg 08/02/24 10:07 08/02/24 10:09 Hydromorphone 2mg/Ml Syringe IV 08/02/24 10:08 0.25 mg ONCE ONE Administration Hydromorphone HCl 0.5 mg 08/02/24 11:06 08/02/24 11:10 Hydromorphone 2mg/Ml Syringe IV 08/02/24 11:07 0.5 mg ONCE ONE Administration Morphine Sulfate 4 mg 08/02/24 09:58 08/02/24 10:03 Morphine 4mg/Ml Syringe IV 08/02/24 09:59 Not Given ONCE ONE Ondansetron HCl 4 mg 08/02/24 09:58 08/02/24 10:09 Ondansetron 4mg/2ml Vial IV 08/02/24 09:59 4 mg ONCE ONE Administration ORDERS Category Date Time Status CT cervical spine wo con Stat Cat Scan 08/02/24 09:[address] head/brain wo con Stat Cat Scan 08/02/24 09:[address] knee RT wo con Stat Cat Scan 08/02/24 10:41 Taken Femur XR right 2 views [XR femur RT 2V] Stat Exams 08/02/24 09:56 Taken Fibula/tibia XR right 2 views [XR tibia fibula RT 2V] Exams 08/02/24 09:56 Taken Stat Hip XR right minimum 2 views [XR hip RT 2-3V w/pelvis] Exams 08/02/24 09:56 Taken Stat Knee XR right 3 views [XR knee RT 3V] Stat Exams 08/02/24 09:56 Taken CBC w/Auto Diff [Complete Blood Count Auto Diff] Stat Lab 08/02/24 11:03 Completed CMP [Comprehensive Metabolic Panel] Stat Lab 08/02/24 11:03 Completed PT INR [Prothrombin Time INR] Stat Lab 08/02/24 11:03 Completed PTT [Activated Partial Thrombo Time] Stat Lab 08/02/24 11:03 Completed EKG Request [ECG Request] Stat Y 08/02/24 10:50 Ordered Medical Decision Narrative: 83-year-old female history of recent traumatic intracranial injury with intracranial bleed, hypertension, hyperlipidemia, CAD status post CABG, CHF, bilateral hip arthroplasties presenting with fall. Patient states that she was walking, she felt like her right knee gave out on me. Just before arrival. She lives at home alone. Called her son who tried to get her up, and the car to come to the hospital. States that patient syncopized while he was holding her and trying to get her up, she states she thinks this was due to pain. Denies hitting her head at any point, but states that the initial fall after her right knee gave out on her difficult to remember. Currently having pain in her right hip, right knee. Has chronic head and back pain, this is not new or different. Has not taken anything for the pain. History was obtained via conversation with patient and EMS. On arrival, patient hemodynamically stable, alert, oriented x4, appropriate, GCS 15, moving all extremities spontaneously, pupils equal and reactive to light. Full physical exam performed and significant for alert, oriented, appears to be in mild distress secondary to pain. Pupils equal and reactive. No trauma about the head or neck. Back without new tenderness. No trauma about the chest, abdomen, pelvis. Bilateral breath sounds. No pain in bilateral upper extremities, but right lower extremity being held and splinted by patient due to pain. She does have tenderness in groin at true hip joint. Not shortened or externally rotated. Femur nontender. Regarding knee, patient has tenderness in knee joint, as well as just distal to knee where she has a large overlying hematoma and midshaft mobility concerning for fracture.Neurovascularly intact distally with no signs of compartment syndrome. Differential includes fracture, sprain, strain, dislocation, neurovascular injury, intracranial bleed, critical cervical spine injury, among others. Patient placed on continuous cardiac monitoring and continuous pulse ox with initial blood pressure 193/102, heart rate 92, likely secondary to pain, saturation 98% on room air. EKG independently interpreted and patient has rate controlled atrial flutter with 2-1 AV conduction. Patient was given 0.25 mg of Dilaudid with 4 mg of Zofran for pain management during x-rays. X-rays independently interpreted and patient has oblique mildly comminuted fracture through proximal tibia and impacted right fibular neck. No acute abnormality of the right hip or right hip arthroplasty. CT of knee was ordered after discussion with orthopedics. This demonstrated no evidence of tibial plateau fracture. Because orthopedics not currently on-call here at [facility], patient needing to be transferred for orthopedic coverage. Because patient high risk for clinical decompensation if discharged, deemed appropriate for transfer and inpatient admission. Results were relayed to patient who voiced understanding and patient was agreeable to transfer, inpatient admission, and management. Patient was graciously accepted and transferred to [facility] for further definitive management, under Dr. Chakraborty. 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 Electronic shell mold bonding machine operator of the spoken language may permit errors. Although I have reviewed the note, some errors may still exist. Procedures Orthopedic Splinting/Casting Injury #1: Side: right Lower Extremity Injury Location: knee and lower leg Lower Extremity Immobilizer: posterior splint (Long-leg Ortho-Glass splint) Post Cast/Splinting Neuro Status: intact and no change Post Cast/Splinting Vasc Status: intact and no change Critical Care Critical Care Time Critical Care Time: No
[2024-08-02 11:14] LABS: Chloride 103 mmol/L (98-107); Potassium 4.5 mmoL/L (3.5-5.1); Sodium 132 mmol/L (136-145)
[2024-08-02 11:17] LABS: Alanine Aminotransferase 43 U/L (12-78); Albumin/Globulin Ratio 1.3 (1.1-1.8); Alkaline Phosphatase 91 U/L (38-126); Anion Gap 11.5 mEq/L (5-15); Aspartate Amino Transferase 43 U/L (14-36); Bilirubin,Total 0.9 mg/dl (0.2-1.3); Blood Urea Nitrogen 35 mg/dl (7-17); Calcium 9.3 mg/dl (8.4-10.2); Carbon Dioxide 22 mmol/L (22.0-30.0); Creatinine Clearance Estimated 39 mL/min (50-200); Estimated Glomerular Filt Rate 53 ml/min (>60); GFR (African American) 64 ML/MIN (>60); Glucose 174 mg/dl (74-100)
[2024-08-02 11:24] LABS: Basophils % 0.6 % (0.1-2.0); Eosinophils # 0.1 K/mm3 (0.0-0.4); Eosinophils % 1.1 % (0.1-12.0); Hematocrit 35.1 % (37.0-47.0); Hemoglobin 12.2 g/dL (12.2-16.2); Lymphocytes # 1.1 K/mm3 (0.7-4.5); Lymphocytes % 15.3 % (10-50); Mean Corpuscular HGB Conc 34.7 g/dL (31.8-35.4); Mean Corpuscular Hemoglobin 36.2 pg (27.0-31.2); Mean Corpuscular Volume 104.3 fl (81-99); Mean Platelet Volume 8.6 fl (7.4-10.4); Monocytes # 0.4 K/mm3 (0.1-1.0); Neutrophils # 5.4 K/mm3 (1.8-7.8); Platelet Count 118 K/mm3 (142-424); Red Blood Count 3.37 M/mm3 (4.20-5.40); Red Cell Distribution Width 16.1 % (11.5-17.5)
[2024-08-02 11:31] LABS: Activated Partial Thrombo Time 25.9 seconds (22.8-30.6); INR 1.07 (0.9-1.1); Prothrombin Time 11.9 seconds (10.1-12.5)
--- NOTE | 2024-08-02 11:44 | PC.NURSE ---
call made to transfer center for possible pt transfer
--- NOTE | 2024-08-02 12:11 | PC.NURSE ---
call made to ems for pt transport
== END 2024-08-02 13:16 | disposition short-term general hospital (02) ==
PROVIDERS: Emergency Provider Emergency Medicine; PCP Emergency Medicine
DX: S82.401A Unspecified fracture of shaft of right fibula, initial encounter for closed fracture (principal); S82.201A Unspecified fracture of shaft of right tibia, initial encounter for closed fracture; M25.561 Pain in right knee; M25.551 Pain in right hip; R11.0 Nausea; R55 Syncope and collapse; R51.9 Headache, unspecified; W01.0XXA Fall on same level from slipping, tripping and stumbling without subsequent striking against object, initial encounter; Y93.89 Activity, other specified; Y92.008 Other place in unspecified non-institutional (private) residence as the place of occurrence of the external cause
CPT/HCPCS: 70450; 72125; 73502; 73552; 73562; 73590; 73700; 80053; 85025; 85610; 85730; 93005; 96374; 96375; 99285; J1171; J2405

== ENCOUNTER 2025-02-24 10:36 | Emergency (ER) | payer MEDICARE, SELFPAY ==
[2025-02-24] VITALS (8 sets, daily range): BP systolic 109–126; BP diastolic 53–99; PULSE 66–100; RESP 16–20; TEMP 37; O2SAT 93–100; BMI 22.4
--- NOTE | 2025-02-24 11:06 | CT_ITS ---
PROCEDURE INFORMATION: Exam: CT Lumbar Spine Without Contrast Exam date and time: 02/24/2025 11:50 AM Age: 84 years old Clinical indication: Injury or trauma; Fall; Blunt trauma (contusions or hematomas); Additional info: Severe mid/low back pain, fall 1 wk ago TECHNIQUE: Imaging protocol: Computed tomography of the lumbar spine without contrast. Radiation optimization: All CT scans at this facility use at least one of these dose optimization techniques: automated exposure control; mA and/or kV adjustment per patient size (includes targeted exams where dose is matched to clinical indication); or iterative reconstruction. COMPARISON: CT LUMBAR SPINE WO CON 12/30/2023 7:59 PM FINDINGS: Bones/joints: Acute superior endplate compression fracture deformity L2. There is approximately 20% loss of height. Postop changes at L4-L5 Soft tissues: Unremarkable. IMPRESSION: Acute superior endplate compression fracture deformity with approximately 20% loss of height. Mild buckling into the spinal canal.
--- NOTE | 2025-02-24 11:06 | CT_ITS ---
PROCEDURE INFORMATION: Exam: CT Cervical Spine Without Contrast Exam date and time: 02/24/2025 11:45 AM Age: 84 years old Clinical indication: Injury or trauma; Fall; Blunt trauma; Additional info: Severe mid/low back pain, fall 1 wk ago TECHNIQUE: Imaging protocol: Computed tomography of the cervical spine without contrast. Radiation optimization: All CT scans at this facility use at least one of these dose optimization techniques: automated exposure control; mA and/or kV adjustment per patient size (includes targeted exams where dose is matched to clinical indication); or iterative reconstruction. COMPARISON: CT CERVICAL SPINE WO CON 08/02/2024 10:34 AM FINDINGS: Bones: There is normal alignment of the cervical spine. There is minimal anterolisthesis of C7 on T1 vertebra. There is narrowing of the intervertebral disc space at C6-C7 level. There are no fractures or dislocations. Lungs: There are emphysematous changes in the partially imaged lung apices. Soft tissues: Unremarkable. IMPRESSION: No evidence of osseous injury to the cervical spine.
--- NOTE | 2025-02-24 11:06 | CT_ITS ---
PROCEDURE INFORMATION: Exam: CT Thoracic Spine Without Contrast Exam date and time: 02/24/2025 11:47 AM Age: 84 years old Clinical indication: Injury or trauma; Fall; Blunt trauma (contusions or hematomas); Additional info: Severe mid/low back pain, fall 1 wk ago TECHNIQUE: Imaging protocol: Computed tomography of the thoracic spine without contrast. Radiation optimization: All CT scans at this facility use at least one of these dose optimization techniques: automated exposure control; mA and/or kV adjustment per patient size (includes targeted exams where dose is matched to clinical indication); or iterative reconstruction. COMPARISON: CT THORACIC SPINE WO CON 12/30/2023 7:57 PM FINDINGS: Bones/joints: Acute inferior endplate deformity of T6. Minimal loss of height. Underlying osteopenia Soft tissues: Unremarkable. IMPRESSION: Acute inferior endplate compression fracture deformity of T6. Minimal loss of height. Underlying osteopenia
--- NOTE | 2025-02-24 11:07 | CT_ITS ---
PROCEDURE INFORMATION: Exam: CTA Chest With Contrast Exam date and time: 02/24/2025 11:52 AM Age: 84 years old Clinical indication: Other: Mid, low back pain; Additional info: Severe mid/low back pain TECHNIQUE: Imaging protocol: Computed tomographic angiography of the chest with contrast. Exam focused on the arteries. 3D rendering (Not supervised by radiologist): MIP and/or 3D reconstructed images were created by the technologist. Radiation optimization: All CT scans at this facility use at least one of these dose optimization techniques: automated exposure control; mA and/or kV adjustment per patient size (includes targeted exams where dose is matched to clinical indication); or iterative reconstruction. Contrast material: ISOVUE 370; Contrast volume: 80 ml; Contrast route: INTRAVENOUS (IV); COMPARISON: CT ANGIO NECK 06/25/2024 3:02 PM FINDINGS: Pulmonary arteries: Normal. No pulmonary emboli. Aorta: Atherosclerotic plaque of the thoracic aorta. Lungs: Unremarkable. No consolidation. No masses. Pleural spaces: Unremarkable. No pneumothorax. No pleural effusion. Heart: Unremarkable. No cardiomegaly. No pericardial effusion. Coronary arteries: Severe coronary artery calcification Lymph nodes: Calcified mediastinal lymph nodes. Bones/joints: Mild inferior endplate deformity of T6. Soft tissues: Unremarkable. Other findings: Underlying emphysema IMPRESSION: 1. Underlying emphysema. 2. Inferior endplate deformity of T6.
--- NOTE | 2025-02-24 11:07 | CT_ITS ---
PROCEDURE INFORMATION: Exam: CT Head Without Contrast Exam date and time: 02/24/2025 11:44 AM Age: 84 years old Clinical indication: Injury or trauma; Fall; Blunt trauma (contusions or hematomas); Additional info: Fall >1 wk ago, AMS TECHNIQUE: Imaging protocol: Computed tomography of the head without contrast. Radiation optimization: All CT scans at this facility use at least one of these dose optimization techniques: automated exposure control; mA and/or kV adjustment per patient size (includes targeted exams where dose is matched to clinical indication); or iterative reconstruction. COMPARISON: CT HEAD/BRAIN WO CON 08/02/2024 10:34 AM FINDINGS: Brain: Choudhury-white matter differentiation and sulcation pattern is normal. There is normal density in the basal ganglia and thalamus. There are moderate periventricular white matter changes. There is moderate cerebral volume loss. There is gyriform calcification in the left inferior frontal lobe (image 129; series 5). There is no intracranial hemorrhage. There is remote lacunar infarct with focal encephalomalacia change in the right cerebellar hemisphere. Cerebral ventricles: No ventriculomegaly. Paranasal sinuses: Visualized sinuses are unremarkable. No fluid levels. Mastoid air cells: Visualized mastoid air cells are well aerated. Bones: Unremarkable. No acute fracture. Soft tissues: Unremarkable. IMPRESSION: 1. Chronic small vessel ischemic disease changes with moderate cerebral volume loss. 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 2. No intracranial hemorrhage.
--- NOTE | 2025-02-24 11:07 | CT_ITS ---
PROCEDURE INFORMATION: Exam: CTA Abdomen and Pelvis With Contrast Exam date and time: 02/24/2025 11:52 AM Age: 84 years old Clinical indication: Other: Severe mid/low back pain TECHNIQUE: Imaging protocol: Computed tomographic angiography of the abdomen and pelvis with contrast. Exam focused on the arteries. 3D rendering (Not supervised by radiologist): MIP and/or 3D reconstructed images were created by the technologist. Radiation optimization: All CT scans at this facility use at least one of these dose optimization techniques: automated exposure control; mA and/or kV adjustment per patient size (includes targeted exams where dose is matched to clinical indication); or iterative reconstruction. 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 Renal arteries: No occlusion or significant stenosis. Right iliac arteries: No occlusion or significant stenosis. Left iliac arteries: No occlusion or significant stenosis. Liver: No mass. Gallbladder and biliary ducts: Gallbladder is surgically removed. Pancreas: Unremarkable. No mass. No ductal dilation. Spleen: Unremarkable. No splenomegaly. Adrenal glands: Unremarkable. No mass. Kidneys and ureters: Bilateral renal cystic lesions. No hydronephrosis Stomach and bowel: Large radiopaque density within the duodenum. Appendix: No evidence of appendicitis. Intraperitoneal space: Unremarkable. No free air. No significant fluid collection. Lymph nodes: Unremarkable. No enlarged lymph nodes. Urinary bladder: Unremarkable. No mass. Reproductive: Unremarkable as visualized. Bones/joints: Acute superior endplate fracture deformity of L2. There is approximately 20% loss of height. There is mild buckling into the spinal canal. postop surgical changes of both hip joints. Soft tissues: Unremarkable. IMPRESSION: 1. Acute compression fracture deformity of the L2 vertebral body with approximately 20% loss of height. There is mild buckling into the spinal canal. Severe atherosclerotic plaque of the abdominal vasculature. 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 2. Gallbladder is surgically removed. There is a radiopaque density within the duodenum. Correlation with recent ingestion is recommended. 3. Bilateral renal cystic lesions. No hydronephrosis.
--- OUTSIDE RECORDS SUMMARY | 2025-02-24 11:08 | XMS_ITS | Data Portability ---
Author Organization [facility] JUANITA Benitez [facility] CLOS[facility] Address [address] [facility] [address] [place] [address] Care Team Providers Care Director Diversity Name Role Phone YVONNE RIBERAE Primary Care Provider [phone] Assessment Encounter Date Assessment Date Assessment LastModified by Organization Details LastModified Time 03/31/2021 03/31/2021 Updated XRs in cast today were independently assessed and discussed with patient. We discussed at this time her distal radius fracture remains in satisfactory alignment to expect good results with conservative management, and given her recent cardiac issues, patient would like to avoid surgery if possible. She will continue short arm casting at this time. Cast care instructions and restrictions were once again discussed. She will return to office for recheck next week with XOA OOC. Continue elevation and digital motion as well as safe use of OTC meds as needed. RTO as scheduled or sooner if needed, advised to call office with any questions/concer ns. Not available 04/01/2021 13:34:34 04/09/2021 04/09/2021 Updated XRs out of cast today were independently assessed and discussed with patient. We discussed at this time her distal radius fracture remains in satisfactory alignment to expect good results with conservative management, and given her recent cardiac issues, patient would like to avoid surgery if possible. She will continue short arm casting at this time. Cast care instructions and restrictions were once again discussed. She will return to office for recheck in 3 weeks with XOA OOC with plans to transition to removable wrist splint and begin working with OT at that time. Continue elevation and digital motion as well as safe use of OTC meds as needed. RTO as scheduled or sooner if needed, advised to call office with any questions/concer ns. Not available 04/14/2021 08:42:39 04/30/2021 04/30/2021 Updated XRs out of cast today were independently assessed and discussed with patient. There is now evidence of early healing at her fracture site, her clinical exam is significantly improved and she denies pain. She will be transitioned to a removable wrist brace to be worn when active and while sleeping. OT referral provided to begin working on progressive range of motion, followed by gradual strengthening. Counselling on continued precautions discussed at length. She will return to office for final recheck in 4 weeks with XOA. RTO as scheduled or sooner if needed, advised to call office with any questions/concer ns. Not available 05/05/2021 13:57:33 05/28/2021 05/28/2021 Updated XRs today were independently assessed and discussed with patient. There is now evidence of progressive healing at her fracture site. Patient is pleased with continued improvement in function and states she has resumed using the right hand for all activities desired. Clinically presents well and denies pain. Counselling on continued precautions discussed. She will now return to office on an as needed basis. RTO as needed, advised to call office with any questions/concer ns. Not available 05/28/2021 14:17:32 06/10/2022 06/10/2022 Urine for culture and sensitivity. Renal ultrasound to evaluate renal cysts. [email or web address] Not available 06/21/2022 15:32:33 Plan of Treatment Reminders Order Date Submit Date Provider Last Modified By Organization Details Last Modified Time Details Appointments None recorded. Lab culture, urine 2021 022 [facility], [address] [place] [address], [place], [address], 13:37:11 urinalysis panel, auto 2021 022 [email or web address] 14 [facility] [place] [facility], [address] [place] [address] Dr Mcgee, [place], [address], 15:32:26 Referral None recorded. Procedures None recorded. Surgeries None recorded. Imaging US, retroperito neum, limited - BILATERAL RENAL US W/O BLADDER CALL SKYLER BAUTISTA AT NO AUTHORIZATI ON REQUIRED. 2021 022 [facility] Centralized Scheduling, [address] , [place], [address], 09:04:59 XR, wrist, 2 view - patient in room 5 2020 021 DBA_BACKF [place]_ 07 Not available 03:33:26 Medication Orders None recorded. Patient TargetsNo targets recorded. Patient Instructions Encounter Date Encounter Id Patient Instructions Last Modified By Organization Details Last Modified Time 06/10/2022 [id number] learning about healthy weight [email or web address] Not available 06/21/2022 15:32:34 Reason for Referral None Reported. Results Created Date Observation Date Name Description Value Unit Range Abnormal Flag Note LastModifiedBy Organization Detail LastModifiedTime 06/10/20 22 06/10/2022 URINE CULTU RE results Sourc e: CCUR Colle cted: 06/10 17:55 Site: Deborah lydia : 06/10 19:27 URINE CULTU RE FINAL 06/13 13:37 06/11 [facility] TE #1 COLON Y COUNT : > 100,0 00 CFU/M L Proba ble Beta Strep tococ cus sp.; ID and sensi tivit y in progr ess. ISOLA TE #2 COLON Y COUNT : < 10,00 0 CFU/M L Gram Negat john Bacil chris. ID and sensi tivit y in progr ess. 06/13 See [place] [facility] Resul t(s) Below [facility]A CAPRI AND SENSI TIVIT Y RESUL TS [place] [facility] 01 Strep . agala ctiae (Grou p B) [facility] 02 Esche manish a coli __ [place] [facility] ORG# 01 ORG# 02 ANTIB IOTIC S ISAURA INT ISAURA INT __ Amox/ K Clav' ate(c ) <=8/4 S Amp/S ulbac corea(c ) <=8/4 S Ampic illin <=8 S Cefaz cm <=2 S Cefta zidim e <=1 S Ceftr iaxon e <=1 S Cefur oxime <=4 S Cipro floxa tyree >2 R Dapto mycin <=0.5 S Ertap enem <=0.5 S Genta micin <=4 S Levof loxac in <=1 S >4 R Linez olid <=1 S Nitro furan toin <=32 S Penic illin <= 0.03 S Piper acill in/Ta z <=16 S Tetra cycli ne >8 R Tobra mycin <=4 S Trime th/Hendricks lfa >2/38 R Trime thopr im >8 R Vanco mycin 0.5 S Not Available [facility] [address] [place] [address], [address], 06/13/2022 13:37:11 06/10/20 22 06/10/2022 urina lysis panel , auto Unknown Analyte Clean Catch Not Available [facility] [place] [facility] With [address]e, [place], [address], 06/10/2022 18:27:47 06/10/20 22 06/10/2022 urina lysis panel , auto Unknown Analyte Yellow Not Available [facility] [place] [facility] With [address]gee, [place], [address], 06/10/2022 18:27:47 06/10/20 22 06/10/2022 urina lysis panel , auto Unknown Analyte Clear Not Available [facility] With [address] [place], [place], [address], 06/10/2022 18:27:47 06/10/20 22 06/10/2022 urina lysis panel , auto Unknown Analyte 1.025 Not Available [facility] With [address] [place], [address], 06/10/2022 18:27:47 06/10/20 22 06/10/2022 urina lysis panel , auto Unknown Analyte 1.003- 1.035 Not Available [facility] With [address] [place], [address], 06/10/2022 18:27:47 06/10/20 22 06/10/2022 urina lysis panel , auto Unknown Analyte 5.0 Not Available [facility] With [address] [place], [address], 06/10/2022 18:27:47 06/10/20 22 06/10/2022 urina lysis panel , auto Unknown Analyte 5.0-8. 0 Not Available [facility] With [address] [place], [address], 06/10/2022 18:27:47 06/10/20 22 06/10/2022 urina lysis panel , auto Unknown Analyte 75 Ion/ul (+) Not Available [facility] With [address] [place], [address], 06/10/2022 18:27:47 06/10/20 22 06/10/2022 urina lysis panel , auto Unknown Analyte Negati ve Not Available [facility] With [address] [place], [address], 06/10/2022 18:27:47 06/10/20 22 06/10/2022 urina lysis panel , auto Unknown Analyte Negati ve Not Available [facility] With [address] [place], [address], 06/10/2022 18:27:47 06/10/20 22 06/10/2022 urina lysis panel , auto Unknown Analyte Negati ve Not Available [facility] With [address] [place], [address], 06/10/2022 18:27:47 06/10/20 22 06/10/2022 urina lysis panel , auto Unknown Analyte 30 mg/dl (+) Not Available [facility] With [address] [place], [address], 06/10/2022 18:27:47 06/10/20 22 06/10/2022 urina lysis panel , auto Unknown Analyte Negati ve Not Available [facility] With [address] [place], [address], 06/10/2022 18:27:47 06/10/20 22 06/10/2022 urina lysis panel , auto Unknown Analyte Normal Not Available [facility] With [address] [place], [address], 06/10/2022 18:27:47 06/10/20 22 06/10/2022 urina lysis panel , auto Unknown Analyte Normal Not Available [facility] With [address] [place], [address], 06/10/2022 18:27:47 06/10/20 22 06/10/2022 urina lysis panel , auto Unknown Analyte 15 mg/dl (Sm) Not Available [facility] With [address] [place], [address], 06/10/2022 18:27:47 06/10/20 22 06/10/2022 urina lysis panel , auto Unknown Analyte Negati ve Not Available [facility] With [address] [place], [address], 06/10/2022 18:27:47 06/10/20 22 06/10/2022 urina lysis panel , auto Unknown Analyte 1 mg/dl Not Available [facility] With [address] [place], [address], 06/10/2022 18:27:47 06/10/20 22 06/10/2022 urina lysis panel , auto Unknown Analyte Normal 1 mg/dl Not Available [facility] With [address] [place], [address], 06/10/2022 18:27:47 06/10/20 22 06/10/2022 urina lysis panel , auto Unknown Analyte 1 mg/dl (+) Not Available [facility] With [address] [place], [address], 06/10/2022 18:27:47 06/10/20 22 06/10/2022 urina lysis panel , auto Unknown Analyte Negati ve Not Available [facility] With [address] [place], [address], 06/10/2022 18:27:47 06/10/20 22 06/10/2022 urina lysis panel , auto Unknown Analyte Negati ve Not Available [facility] With [address] [place]gee, [place], [address], 06/10/2022 18:27:47 06/10/20 22 06/10/2022 urina lysis panel , auto Unknown Analyte Negati ve Not Available [facility] [place] [facility] With [address]gee, [place], [address], 06/10/2022 18:27:47 03/24/20 21 03/24/2021 XR, wrist , 2 view [facility] [address] [address] Patiyang t Name: SKYLER NICOLELee javed : [birth year] Patiyang t Orderi ng Provid er: JUANIS BEDOLLA EXAM DATE: 2020 EXAM: XR RT WRIST, AP/LAT HISTOR Y: Right wrist pain. COMPAR CLAIRE: None. FINDIN GS: There is a fractu re of the distal metaph ysis of the right radius . There is mild dorsal impact ion and mild displa cement . There is also a fractu re of the ulnar styloi d. There is diffus e soft tissue swelli ng. There are mild to modera te degene rative change s. IMPRES ALISE: 1. There is a Colles ' fractu re of the distal right radius and a fractu re of the ulnar styloi d. Interp reted By: Matt moser MD Electr onical ly Signed By: Matt moser MD on 03/24/20 1:59 PM DBA_[email or web address]_ [facility] [place] [address] , [place], [address], 04/22/2022 03:33:26 03/24/20 21 03/24/2021 XR, wrist , 2 view [facility] [address] [address] Patiyang t Name: SKYLER Kelleryang tello : [birth year] Liban javed Radhai ng [facility] er: JUANIS BEDOLLA EXAM DATE: 2020 EXAM: XR RT WRIST, AP/LAT HISTOR Y: Follow up of fractu re. COMPAR CLAIRE: 03/24/20 21 FINDIN GS: Again seen is a fractu re of the distal metaph ysis of the right radius . This is unchan ged in alignm ent in compar claire to the prior study. There is dorsal impact ion and mild displa cement . There is a fractu re of the ulnar styloi d. There has been interv al placem ent of a cast overly ing the wrist. No other fractu re is seen. IMPRES ALISE: 1. There is unchan ged alignm ent of the fractu re of the distal metaph ysis of the right radius . 2. There is a fractu re of the ulnar styloi d. Interp reted By: Matt moser MD Electr onical ly Signed By: Matt moser MD on 03/24/20 3:47 PM [email or web address]_ [facility] [place] [address], [place], [address], 04/22/2022 03:33:26 03/31/20 21 03/31/2021 XR, wrist , 2 view [facility] [address] [place] [address] Liban javed Name: SKYLER javed : [birth year] Liban javed Radhai ng Provid er: JUANIS BEDOLLA EXAM DATE: 2020 EXAM: XR RT WRIST, AP/LAT HISTOR Y: Follow up of fractu re. COMPAR CLAIRE: 03/24/20 FINDIN GS: Again seen is a fractu re of the distal metaph ysis of the right radius . This is unchan ged in alignm ent in compar claire to the prior study. There is dorsal impact ion and mild displa cement . There is a fractu re of the ulnar styloi d. There is a cast overly ing the wrist. No other fractu re is seen. There are mild to modera te degene rative change s. IMPRES ALISE: 1. There is unchan ged alignm ent of the fractu re of the distal metaph ysis of the right radius . 2. There is a fractu re of the ulnar styloi d. Interp reted By: Matt moser MD Electr onical ly Signed By: Matt moser MD on 021 1:41 PM [email or web address]_[email or web address] [facility] [place] [address] , [place], [address], 04/22/2022 03:33:26 04/10/20 21 04/09/2021 XR, wrist , 2 view [facility] [address] [place] [address] Patiyang t Name: SKYLER javed : [birth year] Patiyang t Orderi ng Provid er: JUANIS BEDOLLA EXAM DATE: 2020 EXAM: XR RT WRIST, AP/LAT HISTOR Y: Follow up of fractu re. COMPAR CLAIRE: FINDIN GS: Again seen is a fractu re of the distal metaph ysis of the right radius . This is unchan ged in alignm ent in compar claire to the prior study. There is dorsal impact ion and mild displa cement . There is a fractu re of the ulnar styloi d. There has been interv al remova l of a cast. No other fractu re is seen. There are mild to modera te degene rative change s. There are promin ent vascul ar calcif icatio ns. IMPRES ALISE: 1. There is unchan ged alignm ent of the fractu re of the distal metaph ysis of the right radius . 2. There is a fractu re of the ulnar styloi d. Interp reted By: Matt moser MD Electr onical ly Signed By: Matt moser MD on 021 8:23 AM [email or web address] [facility] [place] [address] , [place], [address], 04/22/2022 03:33:26 04/30/20 21 04/30/2021 XR, wrist , 2 view [facility] [address] [place] [address] Liban javed Name: SKYLER javed : [birth year] Liban javed Orderi ng Provid er: JUANIS BEDOLLA EXAM DATE: 2020 EXAM: XR RT WRIST, AP/LAT HISTOR Y: Follow up of fractu re. COMPAR CLAIRE: 021 FINDIN GS: Again seen is a fractu re of the distal metaph ysis of the right radius . This is unchan ged in alignm ent in compar claire to the prior study. There is dorsal impact ion and mild displa cement . There is a fractu re of the ulnar styloi d. No other fractu re is seen. There are mild to modera te degene rative change s. There are promin ent vascul ar calcif icatio ns. IMPRES ALISE: 1. There is unchan ged alignm ent of the fractu re of the distal metaph ysis of the right radius . 2. There is a fractu re of the ulnar styloi d. Interp reted By: Matt moser MD Electr onical ly Signed By: Matt moser MD on 1:22 PM [email or web address]_ [facility] [place] [address] , [place], [address], 04/22/2022 03:33:26 05/28/20 21 05/28/2021 XR, wrist , 2 view [place] [facility] [address] [place] [address] Patiyang javed Name: SKYLER javed : [birth year] Liban javed Orderi ng Provid er: JUANIS BEDOLLA EXAM DATE: 2020 EXAM: XR RT WRIST, AP/LAT HISTOR Y: Follow up of fractu re. COMPAR CLAIRE: 021 FINDIN GS: Again seen is a fractu re of the distal metaph ysis of the right radius . This is unchan ged in alignm ent in compar claire to the prior study. There is dorsal impact ion and mild displa cement . There is a displa michelle fractu re of the ulnar styloi d. No other fractu re is seen. There are mild to modera te degene rative change s. There are promin ent vascul ar calcif icatio ns. IMPRES ALISE: 1. There is unchan ged alignm ent of the fractu re of the distal metaph ysis of the right radius . 2. There is a fractu re of the ulnar styloi d. Interp reted By: Matt moser MD Electr onical ly Signed By: Matt moser MD on 021 1:34 PM [email or web address] [facility] [place] [address] , [place], [address], 04/22/2022 03:33:28 06/15/20 22 06/15/2022 US, retro perit oneum , limit ed No observ ation record ed. [email or web address] [facility] (Radiology) [address] , [place], [address], 07/05/2022 12:06:03 Result Notes None recorded. 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 From Automated Load;Prov ider: RonArpitin;St atus: Active Not Available [facility] 6 09:10:38 Asthenia 32544524 Active 2015 From Automated Load;Prov ider: Leonardo Mccormack;S tatus: Active Not Available [facility] 6 09:10:38 Headache 23965626 Active 2015 From Automated Load;Prov ider: Leonardo Mccormack;S tatus: Active Not Available [facility] 6 09:10:38 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 53017565949 07 Active 2015 From Automated Load;Prov ider: Leonardo Mccormack;S tatus: Active Not Available [facility] 6 09:10:38 Chest pain 35494537 Active 2015 From Automated Load;Prov ider: Ha Hagan;Sta tus: Active Not Available [facility] 6 09:10:38 Type 2 diabetes mellitus without complicat ion 506029294 Active 2015 From Automated Load;Prov ider: Ha Hagan;Sta tus: Active Not Available [facility] 6 09:10:38 Progressi ve angina 987356161 Active 2015 From Automated Load;Prov ider: Ha Hagan;Sta tus: Active Not Available [facility] 6 09:10:38 Hypertens john disorder 55200318 Active 2015 From Automated Load;Prov ider: Ha Hagan;Sta tus: Active Not Available [facility] 6 09:10:39 Problem Notes None recorded. Procedures Surgical History Date Name Laterality Status Provider Name and Address Organization Details Recorded Time [facility] 17:15:27 [facility] 09/15/2017 17:15:30 Heart Surgery completed [facility] 09/15/2017 17:15:37 Total hip arthroplasty completed [facility] 09/15/2017 17:15:51 Imaging Results Imaging Date Name Status LastModified by Organiz ation Details LastModified Time 03/24/2021 XR, wrist, 2 view completed [email or web address] 707 [facility] [place] [address] , [place], [address], 04/22/2022 03:33:26 03/24/2021 XR, wrist, 2 view completed [email or web address] 707 [facility] [place] [address] , [place], [address], 04/22/2022 03:33:26 03/31/2021 XR, wrist, 2 view completed [email or web address] 707 [facility] [place] [address] , [place], [address], 04/22/2022 03:33:26 04/09/2021 XR, wrist, 2 view completed [email or web address] 707 [facility] [place] [address] , [place], [address], 04/22/2022 03:33:26 04/30/2021 XR, wrist, 2 view completed [email or web address] 707 [facility] [place] [address] , [place], [address], 04/22/2022 03:33:26 05/28/2021 XR, wrist, 2 view completed [email or web address] [id number] [facility] [place] [address], [place], [address], 04/22/2022 03:33:28 06/15/2022 US, retroperiton eum, limited completed [email or web address] [facility] (Radiology) [address] , [place], [address], 07/05/2022 12:06:03 Procedure Notes None recorded. Medical Equipment None Reported. Allergies Allergen ID Allergen Name Allergen Category Reaction Reaction Severity Criticality Documentation Date Start Date Code Code System Note Provider Name and Address Organization Details Recorded Time 149210 morphine sulfate medicatio n Not available Not available Not available 09/10/20162014 99770 RxNorm Comme nt: Creat ed By: Ric Khanna hari Date: 2014 2:07: 08 PM; Not Available [facility] 6 02:59:47 625842 Macrobid medicatio n Not available Not available Not available 09/10/20162012 88848 1 RxNorm Comme nt: Creat ed By: Michelle Khanna hari Date: 2012 1:16: 18 PM; Not Available [facility] 6 04:55:10 Medications Name Sig Start Date Stop Date Status Note LastModified by Organization Details LastModified Time cefuroxim e axetil 250 mg tablet Take 1 tablet every 12 hours by oral route for 10 days. 07/12 completed Not Available Not Available Not Available Neurontin 800 mg tablet Two times a day 03/24 completed Instruct ions: 1 hs for nerve pain. May ^ q 7d if needed to 2 hs; 1 am, 2 hs; 2 am, 2 hs ;Frequen cy: bid;Medi cation Descript ion: gabapent in; Dosage:1 ; Route:or al; refills: 5; Quantity :30 tablet Not Available Not Available Not Available trimethop rim 100 mg tablet Take 1 tablet every day by oral route. 2021 active Not Available Not Available Not Avai lable levofloxa tyree 500 mg tablet Take 1 tablet every 24 hours by oral route for 5 days. 2021 active Not Available Not Available Not Avai lable benazepri l 10 mg tablet 03/24 completed Medicati on Descript ion: benazepr il; Route:or al; refills: 0 Not Available Not Available Not Available aspirin 03/24 completed Medicati on Descript ion: aspirin; refills: 0 Not Available Not Available Not Available calcium active Medicati on Descript ion: calcium carbonat e; Route:or al; refills: 0 Not Available Not Available Not Available Lipitor Every night at bedtime active Frequenc y: qhs;Medi cation Descript ion: atorvast atin; Dosage:1 ; Route:or al; refills: 0 Not Available Not Available Not Available Lasix active Not Available Not Availa ble Not Available Coumadin Daily active Frequenc y: daily;Me dication Descript ion: warfarin ; Dosage:a s directed ; refills: 0 Not Available Not Available Not Available carvedilo l active Not Available Not Available Not Available losartan active Not Available Not Avai lable Not Available atenolol Daily 03/24 completed Frequenc y: daily;Me dication Descript ion: atenolol ; Dosage:1 ; refills: 0 Not Available Not Available Not Available Xanax Daily active Frequenc y: daily;Al t Frequenc y: prn;Medi cation Descript ion: alprazol am; Dosage:1 ; Route:or al; refills: 0 Not Available Not Available Not Available metformin Two times a day active Frequenc y: bid;Alt Frequenc y: with food;Med ication Descript ion: metformi n; Dosage:1 ; refills: 0 Not Available Not Available Not Available amlodipin e-benazep ril active Medicati on Descript ion: amlodipi ne; Route:or al; refills: 0 Not Available Not Available Not Available Ranexa 1,000 mg tablet,ex tended release active Medicati on Descript ion: ranolazi ne; Route:or al; refills: 0 Not Available Not Available Not Available Vitals Date Recorded Body height Body mass index (BMI) Body weight Provider Name and Address Organization Details Last Updated DateTime 03/31/2021 160.02 cm 27.3 kg/m2 85564.22 g Celsa Marcel [facility] 03/31/2021 13:36:09 Date Recorded Body height Body mass index (BMI) Body weight Provider Name and Address Organization Details Last Updated DateTime 04/09/2021 160.02 cm 27.1 kg/m2 83416.63 g Brenda Torres [facility] 04/09/2021 14:48:35 Date Recorded Body height Body mass index (BMI) Body weight Provider Name and Address Organization Details Last Updated DateTime 04/30/2021 160.02 cm 27.1 kg/m2 36907.63 g Celsa Mtz [facility] 04/30/2021 13:24:03 Date Recorded Body height Body mass index (BMI) Body weight Provider Name and Address Organization Details Last Updated DateTime 05/28/2021 160.02 cm 27.1 kg/m2 80404.63 g Celsa Rod [facility] 05/28/2021 13:24:49 Date Recorded Body height Body mass index (BMI) Body weight Provider Name and Address Organization Details Last Updated DateTime 06/10/2022 160.02 cm 27.1 kg/m2 64015.63 g Nuris Salgado [facility] 06/10/2022 18:27:02 Social History Question Answer Notes LastModified by Organizat ion Details LastModified Time Tobacco Smoking Status [facility] 17:15:15 Marital Status petra Informatio n not available 09/15/2017 What Was The Date Of Your Most Recent Tobacco Screening? 06/10/2022 [email or web address] Information not available 06/10/2022 Sex: Unknown Functional Status None recorded. Mental Status None recorded. Family History Relationship Description Onset Age of this Age Resolved Age Notes LastModified by Organization Details LastModified Time Unspecified Relation Family history of malignant neoplasm petra Not available 2016 17:14:56 Unspecified Relation Diabetes mellitus petra Not available 2016 17:15:02 Medical History Condition Response Arthritis Y Blood Clot N Kidney Disease Y Heart Conditions Y Bleeding Disorder N Asthma N Included as Review of Systems Y Blood Thinners Y High Cholesterol Y Liver Disease N Heart Attack ([place]) N Diabetes Y Hypertension Y Gynecological HistoryNo gynecological history recorded. Obstetrics History GPAL:G 0 P 0 0 0 0 Past Encounters Encounter ID Performer Location Encounter Start Date Encounter Closed Date Diagnosis/Indication Diagnosis SNOMED-CT Code Diagnosis ICD10 Code Diagnosis Note [id number] LIBBY FAYE MD [facility] [address] [address] 09/15/2017 14:34:03 09/21/2017 12:06:33 Recurrent urinary tract infection 853270557 N39.0 Cystic dis ease of kidney 345176144 Q61.9 [id number] MD [facility] [address] [address] 07/12/2019 14:05:14 08/07/2019 14:32:40 Urinary tract infectious disease 58563432 N39.0 Cyst of kidney 924231707 N28.1 [id number] LIBBY FAYE MD [facility] [address] [place] [address] 02/05/2021 15:05:46 02/06/2021 15:50:44 Recurrent urinary tract infection 388023914 N39.0 Multiple renal cysts 253 486078 N28.1 [id number] MARLENY BEDOLLA PA-C [facility] [address] [place] [address] 03/24/2021 13:16:15 03/24/2021 14:18:29 Closed fracture of distal end of right radius 7255390984 [id number] S52.501A DOI: 03/16/21 - mildly displaced distal radius fracture and displaced ulnar styloid fracture [id number] VERONICA FOREMANI [facility] [address] [place] [address] 03/31/2021 13:30:25 03/31/2021 13:55:49 Closed fracture of distal end of right radius 2931338421 9829670 S52.501A DOI: 03/16/21 - mildly displaced distal radius fracture and displaced ulnar styloid fracture [id number] VERONICA FOREMANI [facility] [address] [place] [address] 04/09/2021 14:15:17 04/09/2021 15:16:39 Closed fracture of distal end of right radius 6323492186 5359078 S52.501A DOI: 03/16/21 - mildly displaced distal radius fracture and displaced ulnar styloid fracture [id number] VERONICA FOREMANEDI [facility] [address] [place] [address] 04/30/2021 13:02:15 04/30/2021 13:54:16 Closed fracture of distal end of right radius 5983386655 2236315 S52.501A DOI: 03/16/21 - mildly displaced distal radius fracture and displaced ulnar styloid fracture [id number] MARLENY BEDOLLA PA-C [facility] [address] [place] [address] 05/28/2021 13:19:59 05/28/2021 14:27:20 Closed fracture of distal end of right radius 0520623825 3770766 S52.501A DOI: 03/16/21 - mildly displaced distal radius fracture and displaced ulnar styloid fracture [id number] LIBBY FAYE MD [facility] [address] [address] 06/10/2022 15:14:25 06/23/2022 11:14:33 Urinary tract infectious disease 97692945 N39.0 Cyst of kidney 903307246 N28.1 Health Concerns Section Related Observation LastModified by Organization Detai ls LastModified Time None Recorded Concern Status LastModified by Organization Details LastModified Time None Recorded Advance Directives Directive None Recorded Payers Insurance Date Sequence Insurance Name Policy Number Policy Rosen Covered Member ID Rosen Member ID Guarantor Name 01/15/2025 2 [employer] OPTIONS (MEDICARE SUPPLEMENT) Skyler Bautista [id number] Skyler Bautista 01/15/2025 1 [place] Skyler Bautista [id number] Skyler Ocampolivan Notes Date Note Type Note Provider Name and Address Organization Details Recorded Time 03/31/2021 text/html Ms. Bautisat returns today for fracture alignment recheck with XR in cast. She reports improvement in pain since last visit and compliance with casting restrictions. Primary Care Physician: Dr. Moeller Hand dominance: {{Right* Left ambi dextrous}} Location: {{Right* Left Bila teral}} {{Hand Wrist* Elbo w Other}} Pain level: {{0 1 2 3 4* 5 6 7 8 9 10}} /10 Date of injury:03/16/21 Previous upper extremity surgery? 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 She denies pain. Primary Care Physician: Dr. Moeller Hand dominance: {{Right* Left ambi dextrous}} Location: {{Right* Left Bila teral}} {{Hand Wrist* Elbo w Other}} Pain level: {{0* 1 2 3 4 5 6 7 8 9 10}} /10 Date of injury:03/16/21 Previous upper extremity surgery? 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 She reports continued compliance with casting restrictions and denies pain at this time. Primary Care Physician: Dr Moeller Hand dominance: {{Right* Left ambi dextrous}} Location: {{Right* Left Bila teral}} {{Hand Wrist* Elbo w Other}} Pain level: {{0* 1 2 3 4 5 6 7 8 9 10}} Date of injury: 03/16/2021 Duration: {{6# }} {{ day(s) week(s)* month(s) year(s)} } Recent Surgery: {{Yes No*}} Previous upper extremity surgery? 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 She denies pain and is pleased with significant improvement in function. Primary Care Physician: Dr Moeller Hand dominance: {{Right* Left ambi dextrous}} Location: {{Right* Left Bila teral}} {{Hand Wrist* Elbo w Other}} Pain level: {{0* 1 2 3 4 5 6 7 8 9 10}} / Date of injury: 03/16/2021 Duration: {{ 10#}} {{ day(s) week(s)* month(s) year(s)} } Recent Surgery: {{Yes No*}} Previous upper extremity surgery? 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 She has history of renal cystic disease. She has bilateral back pain, left equal to right. She voids 2-3 times daily with nocturia up to 3 times nightly. She denies hesitancy. She has occasional dysuria.She has been seeing Dr. Macdonald at urology. LIBBY FAYE MD [address] [place], [address], [facility] 06/21/2022 15:38:34 OBGyn Episode No OBEpisode recorded.
[2025-02-24 11:11] LABS: Basophils % 0.5 % (0.1-2.0); Eosinophils # 0.1 Kmm3 (0.0-0.4); Eosinophils % 2.1 % (0.1-12.0); Hematocrit 30.1 % (37.0-47.0); Hemoglobin 10.1 g/dL (12.2-16.2); Immature Granulocytes # 0.05 10^3uL; Immature Granulocytes % 0.9 %; Lymphocytes # 1.4 K/mm3 (0.7-4.5); Lymphocytes % 23.6 % (10-50); Mean Corpuscular HGB Conc 33.6 g/dL (31.8-35.4); Mean Corpuscular Hemoglobin 37.1 pg (27.0-31.2); Mean Corpuscular Volume 110.7 fl (81-99); Mean Platelet Volume 12.5 fl (7.4-10.4); Monocytes # 0.6 K/mm3 (0.1-1.0); Monocytes % 9.8 % (1.7-9.3); Neutrophils # 3.7 K/mm3 (1.8-7.8); Neutrophils % 63.1 % (37.0-80.0); Nucleated Red Blood Cells # 0 10^3/uL; Nucleated Red Blood Cells % 0 %; Platelet Count 156 K/mm3 (142-424); Red Blood Count 2.72 M/mm3 (4.20-5.40); Red Cell Distribution Width 13.9 % (11.5-17.5); Red Cell Distribution Width-SD 55.2 fL; White Blood Count 5.8 K/mm3 (4.8-10.8)
--- NOTE | 2025-02-24 11:11 | ED_ITS ---
Discharge Plan Disposition Patient Disposition: Home, Self-Care Prescriptions Prescriptions: New cefdinir 300 mg capsule 300 mg PO BID 10 Days Qty: 20 0RF methocarbamol 500 mg tablet 500 mg PO Q8H PRN (Reason: pain) Qty: 20 0RF No Action cholecalciferol (vitamin D3) 50 mcg (2,000 unit) Tablet 50 mcg PO DAILY ferrous sulfate 325 mg (65 mg iron) Tablet 325 mg PO DAILY latanoprost [Xalatan] 0.005 % Drops 1 drp OPHTHALMIC (EYE) HS diltiazem HCl 180 mg Capsule,Extended Release 24hr 180 mg PO DAILY 30 Days Qty: 30 0RF hydrocodone-acetaminophen 5-325 mg Tablet 1 tab PO Q6HP PRN (Reason: Severe Pain (7-10)) 3 Days Qty: 11 0RF cephalexin 500 mg capsule 500 mg PO BID 5 Days Qty: 10 0RF mupirocin 2 % ointment 1 applic topical TID 7 Days Qty: 22 0RF aspirin 81 mg tablet,delayed release (DR/EC) 81 mg PO DAILY Qty: 30 0RF carvedilol 12.5 mg Tablet 12.5 mg PO BID 30 Days Qty: 60 0RF Rx Instructions: must administer with a meal/food citalopram 20 mg Tablet 20 mg PO DAILY 30 Days Qty: 30 0RF ranolazine 500 mg Tablet Extended Release 12 Hr 500 mg PO HS 30 Days Qty: 30 0RF potassium chloride 20 mEq Tablet Extended Release 20 meq PO DAILY 30 Days Qty: 30 0RF furosemide [Lasix] 40 mg tablet 40 mg PO DAILY Qty: 30 0RF Referrals Follow up/Referrals: Evaristo Heard MD [Primary Care Provider] - See instructions Activity Restrictions/Add. Instructions Additional Instructions/Restrictions: You were evaluated in the emergency department today. As we discussed, you have fractures of T6 and L2. For this, please follow-up closely with primary care, as they may help refer you to a offender job retention specialist and to physical therapy on an outpatient basis. He also have narrowing of the arteries going to your intestines, for which I also recommend close outpatient follow-up. supervisor braiding your prescriptions and take them as prescribed. The cefdinir to treat your urinary tract infection, Robaxin is a muscle relaxer to have as needed for pain. Continue taking your other pain medications at home as well. Return to the emergency department for new or worsening symptoms, such as new numbness or tingling in your legs, intractable pain, or other concerns. Clinical Impressions Clinical Impression: Compression fracture of L2, Renal cyst, Superior mesenteric artery stenosis, Celiac artery stenosis, Acute UTI, Back pain, Closed fracture of T6 vertebra Instructions Patient Instructions: DI for Vertebral Fracture, DI for Urinary Tract Infection (UTI) Print Language Print Language: Slovak Discharge ED Provider: Bonita Stubbs General Adult HPI General Chief complaint: Urogenital-Female Stated complaint: AO 02/17/25, hit head, mid back pain Time Seen by Provider: 02/24/25 10:43 Mode of Arrival: Wheelchair Source of Information: Patient Description of Symptoms (Recalled from ER Triage Doc. by RN): patient states for one week she has been having right sided flank pain burning on urination and a headache History of Present Illness HPI narrative: This patient is an 84-year-old female with a history of peripheral vascular disease status post stenting with prior partial amputation of her left great toe at [facility], atrial fibrillation, pulmonary emphysema, CHF, CAD status post CABG presenting to the emergency department for evaluation with concern for headache, back pain, and burning on urination. According to the patient's family, she just had a complaining of this today, but the patient states has been going on for about a week. Family brought her in because of her complaints of severe back pain. Patient states pain all across her upper and lower back. They do note that she had a fall about a week ago in which she had hit her head, her mid back, and her left shoulder, but she was evaluated at another hospital and had negative CTs and x-rays according to family. She has been fine since then up until today. No fevers, chest pain, shortness of breath, cough, congestion, or other concerns. Of note, she does have worsening skin changes to her left great toe and her son reports that they are supposed to be amputated more of this at [facility]. Related Data Home Medications ?Medication ?Instructions ?Recorded ?Confirmed cholecalciferol (vitamin D3) 50 50 mcg PO DAILY 03/03/24 02/24/25 mcg (2,000 unit) tablet ferrous sulfate 325 mg (65 mg 325 mg PO DAILY 03/03/24 05/18/24 iron) tablet latanoprost 0.005 % eye drops 1 drp ophthalmic (eye) HS 03/03/24 05/18/24 (Xalatan) Previous Rx's ?Medication ?Instructions ?Recorded aspirin 81 mg tablet,delayed 81 mg PO DAILY #30 tabs 05/19/24 release carvedilol 12.5 mg tablet 12.5 mg PO BID 30 days #60 tabs 05/19/24 cephalexin 500 mg capsule 500 mg PO BID 5 days #10 caps 05/19/24 citalopram 20 mg tablet 20 mg PO DAILY 30 days #30 tabs 05/19/24 diltiazem HCl 180 mg 180 mg PO DAILY 30 days #30 caps 05/19/24 capsule,extended release 24 hr furosemide 40 mg tablet (Lasix) 40 mg PO DAILY #30 tabs 05/19/24 hydrocodone 5 mg-acetaminophen 325 1 tab PO Q6HP PRN Severe Pain 05/19/24 mg tablet (7-10) 3 days #11 tabs mupirocin 2 % topical ointment 1 applic topical TID 7 days #22 05/19/24 grams potassium chloride 20 mEq 20 meq PO DAILY 30 days #30 tabs 05/19/24 tablet,extended release ranolazine 500 mg tablet,extended 500 mg PO HS 30 days #30 tabs 05/19/24 release,12 hr cefdinir 300 mg capsule 300 mg PO BID 10 days #20 caps 02/24/25 methocarbamol 500 mg tablet 500 mg PO Q8H PRN pain #20 tabs 02/24/25 Allergies Allergy/AdvReac Type Severity Reaction Status Date / Time nitrofurantoin (From Allergy Intermediate Rash Verified 03/02/24 16:03 Macrodantin) morphine Allergy Unknown Unknown Verified 03/02/24 16:03 allergy reaction [facility] Disclaimer: The information contained in this section may have been updated after the patient was seen, as this information can be updated by other users. Medical History CHI (closed head injury) Sleep apnea A-fib Emphysema lung Surgical History Hx of CABG Social History Smoking Status: Never smoker alcohol intake: never substance use type: denies use current occupational status: retired Travel in the last 8 weeks?: None household members: spouse housing: house Have you lived/traveled outside [place] in past 30 days?: No Contact w/someone who lives/traveled outside [place] past 30 days?: No Exposure to someone with infectious disease in past 14 days?: No Do you have a fever (greater than 100.4 F or 38 C)?: No Have you tested positive for COVID-19?: No Exposed to someone with COVID-19 in past 14 days?: No Do you have a sore throat?: No Do you have a cough?: No Do you have any weakness?: No Do you have any diarrhea?: No Are you experiencing any unusual bleeding?: No Do you have any muscle aches/pain?: Yes Do you have any abdominal pain?: No Are you experiencing loss of taste or smell?: No Other Medical History Have you received the Flu Vaccine for this season: No Have you received the Pneumonia Vaccine: No ROS Obtained: Yes All systems reviewed & no additional complaints except as documented Physical Exam General General appearance: alert and in no apparent distress Comment: Uncomfortable appearing Head Head exam: atraumatic and normocephalic Eye Eye exam: Present normal appearance, PERRL and EOMI ENT ENT exam: Present normal exam, normal oropharynx, mucous membranes moist and normal external ear exam Neck Neck exam: Present normal inspection, full ROM and trachea midline; Absent tenderness Chest Chest inspection: Present normal inspection and symmetric chest wall rise; Absent tenderness Respiratory Respiratory exam: Present normal lung sounds bilaterally; Absent respiratory distress, wheezes, stridor or accessory muscle use Cardiovascular Cardiovascular exam: Present regular rate and normal rhythm Abdominal Exam Abdominal exam: Present soft; Absent distention, tenderness or guarding Extremities Exam Extremities exam: Present full ROM, normal capillary refill and other (Chronic skin changes to the bilateral lower extremities. Intact pulses. Gangrenous changes to the distal aspect of the left great toe); Absent tenderness or edema Back Exam Back exam: Present normal inspection and full ROM; Absent tenderness Neurological Exam Neurological exam: Present alert, oriented X3, CN II-XII intact and normal gait; Absent motor sensory deficit Psychiatric Psychiatric exam: Present normal affect and normal mood Skin Skin exam: Present warm and dry Medical Decision Making Medical Records Medical records reviewed: Yes I reviewed the patient's medical records. Screening: Per USPSTF and CDC recommendations, given the prevalence of disease in our region, it is our hospital?s policy to screen for HIV and viral Hepatitis for all patients aged 18 and over and those with ongoing risk factors. [place]dal[place] Inquiry Pt receiving controlled substance: No Vital Signs: 02/24/25 10:45 02/24/25 10:56 02/24/25 11:01 Temperature 98.6 F Temperature Source Oral Pulse Rate 90 84 Pulse Rate [Right Radial] 100 H Respiratory Rate 19 16 Blood Pressure 126/72 109/60 L Blood Pressure [Right Arm] 126/72 Blood Pressure Mean [Right Arm] 90 Blood Pressure Source Blood Pressure Source [Right Arm] Automatic Cuff Blood Pressure Position Blood Pressure Position [Right Arm] Sitting 02 Sat by Pulse Oximetry 100 99 100 Oxygen Delivery Method Room Air Room Air Room Air 02/24/25 11:30 02/24/25 12:00 02/24/25 12:30 Temperature Temperature Source Pulse Rate 84 72 99 H Pulse Rate [Right Radial] Respiratory Rate 16 20 19 Blood Pressure 123/64 118/68 120/53 L Blood Pressure [Right Arm] Blood Pressure Mean [Right Arm] Blood Pressure Source Blood Pressure Source [Right Arm] Blood Pressure Position Blood Pressure Position [Right Arm] 02 Sat by Pulse Oximetry 100 96 97 Oxygen Delivery Method Room Air Room Air Room Air 02/24/25 13:01 02/24/25 13:12 Temperature 98.6 F Temperature Source Oral Pulse Rate 66 66 Pulse Rate [Right Radial] Respiratory Rate 17 18 Blood Pressure 125/99 H 125/99 H Blood Pressure [Right Arm] Blood Pressure Mean [Right Arm] Blood Pressure Source Automatic Cuff Blood Pressure Source [Right Arm] Blood Pressure Position Supine Blood Pressure Position [Right Arm] 02 Sat by Pulse Oximetry 93 L Oxygen Delivery Method Room Air Lab Data Lab results reviewed: Yes I reviewed the patient's lab results. Lab Results 02/24/25 10:50: WBC 5.8, RBC 2.72 L, Hgb 10.1 L, Hct 30.1 L, MCV 110.7 H, MCH 37.1 H, MCHC 33.6, RDW 13.9, Plt Count 156, MPV 12.5 H, Neut % (Auto) 63.1, Lymph % (Auto) 23.6, [place] % (Auto) 9.8 H, Eos % (Auto) 2.1, Baso % (Auto) 0.5, Neut # (Auto) 3.7, Lymph # (Auto) 1.4, [place] # (Auto) 0.6, Eos # (Auto) 0.1, Baso # (Auto) 0.0, PT 12.2, INR 1.10, APTT 28.4, Sodium 133 L, Potassium 5.1, Chloride 104, Carbon Dioxide 22, Anion Gap 12.1, BUN 28 H, Creatinine 1.20 H, Estimated Creat Clear 30, Estimated GFR 43 L, Est GFR ( Amer) 52 L, G lucose 208 H, Lactate 2.1, Calcium 9.2, Total Bilirubin 1.3, AST 40 H, ALT 24, A lkaline Phosphatase 135 H, Total Protein 7.5, Albumin 4.0, Globulin 3.5 H, Albumin/Globulin Ratio 1.1, Lipase 31, HCV Ab NILAY w/Rflx PCR Qn Negative, HIV Ag/Ab Combo Qual Negative 02/24/25 11:17: Urine Color Yellow, Urine Appearance Clear, Urine pH 6.0, Ur Specific [place] 1.015, Urine Protein Negative, Urine Glucose (UA) Negative, Urine Ketones Negative, Urine Blood Negative, Urine Nitrate Positive A, Urine Bilirubin Negative, Urine Urobilinogen 0.2, Ur Leukocyte Esterase Trace, Urine RBC None, Urine WBC 10-20, Ur Squamous Epith Cells Occasional, Urine Bacteria 4+ 02/24/25 10:50 02/24/25 10:50 Orders (Tests/Meds): ED MEDICATIONS Discontinued Medications Generic Name Dose Route Start Last Admin Trade Name Drea PRN Reason Stop Dose Admin Acetaminophen 1,000 mg 02/24/25 11:08 02/24/25 11:15 Acetaminophen 1,000mg/100ml Vial IV 02/24/25 11:09 1,000 mg ONCE ONE Administration Fentanyl Citrate 25 mcg 02/24/25 11:08 02/24/25 11:15 Fentanyl 100mcg/2ml Vial IV 02/24/25 11:09 25 mcg ONCE ONE Administration Lactated Ringer's 500 mls @ 999 mls/hr 02/24/25 11:22 02/24/25 11:26 Lactated Ringer's 500ml IV 02/24/25 11:52 999 mls/hr .Q31M ONE Administration Ceftriaxone Sodium 2 gm/ 100 mls @ 200 mls/hr 02/24/25 12:29 02/24/25 12:34 Sodium Chloride IV 02/24/25 12:58 200 mls/hr ONCE ONE Administration Iopamidol 80 ml 02/24/25 11:44 02/24/25 11:45 Iopamidol-370 (76%);100ml Bottle IV 02/24/25 11:45 80 ml ONCE ONE Administration Ketorolac Tromethamine 15 mg 02/24/25 12:55 02/24/25 13:06 Ketorolac 30mg/Ml Vial IV 02/24/25 12:56 15 mg ONCE ONE Administration Lidocaine 1 each 02/24/25 11:08 02/24/25 11:15 Lidocaine 5% Transdermal Patch TD 02/24/25 11:09 1 each ONCE ONE Administration Methocarbamol 500 mg 02/24/25 12:56 02/24/25 13:07 Methocarbamol 500mg Tablet PO 02/24/25 12:57 500 mg ONCE ONE Administration Ondansetron HCl 4 mg 02/24/25 11:08 02/24/25 11:15 Ondansetron 4mg/2ml Vial IV 02/24/25 11:09 4 mg ONCE ONE Administration Oxycodone HCl 5 mg 02/24/25 12:55 02/24/25 13:07 Oxycodone 5mg Immediate Release Tablet PO 02/24/25 12:56 5 mg ONCE ONE Administration Sodium Chloride 10 ml 02/24/25 11:44 Sodium Chloride 0.9% 10ml Syr (Rad Only) IV 03/26/25 11:43 NEEDED PRN Maintain IV Site Sodium Chloride 50 ml 02/24/25 11:44 02/24/25 11:45 0.9 % Sodium Chloride 50 Ml Vial IV 02/24/25 11:45 50 ml ONCE ONE Administration ORDERS Category Date Time Status CT angio abdomen pelvis Stat Cat Scan 02/24/25 11:[address] angio chest - dissection Stat Cat Scan 02/24/25 11:[address] cervical spine wo con Stat Cat Scan 02/24/25 11:[address] head/brain wo con Stat Cat Scan 02/24/25 11:[address] lumbar spine wo con Stat Cat Scan 02/24/25 11:[address] thoracic spine wo con Stat Cat Scan 02/24/25 11:06 Completed Complete Blood Count Auto Diff Stat Lab 02/24/25 10:50 Completed Comprehensive Metabolic Panel Stat Lab 02/24/25 10:50 Completed HIV Combo Stat Lab 02/24/25 10:50 Completed Hepatitis C Ab Qual. W/ RFX Stat Lab 02/24/25 10:50 Completed Lactic Acid Stat Lab 02/24/25 10:50 Completed Lipase Stat Lab 02/24/25 10:50 Completed PT INR [Prothrombin Time INR] Stat Lab 02/24/25 10:50 Completed PTT [Activated Partial Thrombo Time] Stat Lab 02/24/25 10:50 Completed UA [Urinalysis and Microscopic] Stat Lab 02/24/25 11:17 Completed Urine Culture Stat Micro 02/24/25 11:17 Received Medical Decision Narrative: In summary, this patient is a 84-year-old female presenting to the Emergency Department for evaluation of severe back pain, headache, dysuria. Differential diagnoses considered include but are not limited to cystitis, pyelonephritis, ureterolithiasis, injury from fall 1 week ago, aortic pathology. Ruling out the most morbid conditions drove assessment. It should be noted patient's history includes extensive cardiovascular history which may or may not be at goal therapy. This complicates all aspects of care by increasing patient's risk for morbidity. On exam, the patient is lying in bed, nontoxic-appearing with reassuring vital signs and cardiac telemetry. She complains of severe pain all across her back but denies any other concerns or complaints at this time. She did have a fall 1 week ago and reportedly had scans obtained, but I am not able to visualize these records. workup included CBC, CMP, lipase, lactic acid, urinalysis, CT head, CT C/T/L-spine, CTA chest, abdomen, pelvis. She was given IV fentanyl, Zofran, acetaminophen, and topical Lidoderm patch for symptomatic improvement. She has gangrenous changes to her left great toe, but family states this has been chronic and [facility] is planning further amputation on an outpatient basis. I independently interpreted CT scans prior to the radiologist read and noted T6 fracture, L2 fracture, multiple bilateral renal cysts. Please see their read for final interpretation. They also noted concern for SMA and celiac stenosis, which family is already aware of given her extensive cardiovascular history. Labs were obtained that demonstrated reassuring CBC with no significant leukocytosis. She does have mild anemia. Chemistry is reassuring with only mild KRISTEN with a creatinine of 1.2 from 1. Urine is concerning for infection. Will plan to treat with a dose of IV Rocephin now and send her home with cefdinir. On reassessment, patient had good improvement after administration of interventions above. She is feeling a lot better and is able to ambulate. She is neurologically intact in her lower extremities. Given she has stable compression deformities, I feel that she is appropriate for outpatient follow-up for further evaluation and management. She was given Toradol, Robaxin, and oxycodone prior to discharge. She was given prescription for Robaxin and cefdinir as well as instructions for close outpatient follow-up and strict return precautions. Critical Care Critical Care Time Critical Care Time: No
[2025-02-24 11:15] LABS: Chloride 104 mmol/L (98-107); Potassium 5.1 mmoL/L (3.5-5.1); Sodium 133 mmol/L (136-145)
[2025-02-24] MEDS: FENTANYL 100MCG/2ML VIAL 25 MCG IV (11:15)
[2025-02-24] MEDS: ACETAMINOPHEN 1,000MG/100ML VIAL 1000 MG IV (11:15)
[2025-02-24] MEDS: ONDANSETRON 4MG/2ML VIAL 4 MG IV (11:15)
[2025-02-24] MEDS: LIDOCAINE 5% TRANSDERMAL PATCH 1 EACH TD (11:15)
[2025-02-24 11:17] LABS: Alanine Aminotransferase 24 U/L (12-78); Alkaline Phosphatase 135 U/L (38-126); Aspartate Amino Transferase 40 U/L (14-36); Bilirubin,Total 1.3 mg/dl (0.2-1.3); Blood Urea Nitrogen 28 mg/dl (7-17); Creatinine Clearance Estimated 30 mL/min (50-200); Estimated Glomerular Filt Rate 43 ml/min (>60); GFR (African American) 52 ML/MIN (>60); Total Protein,Serum 7.5 g/dl (6.3-8.2)
[2025-02-24 11:18] LABS: Calcium 9.2 mg/dl (8.4-10.2); Glucose 208 mg/dl (74-100); Lactic Acid 2.1 mmol/L (0.7-2.1); Lipase 31 U/L (23-300)
[2025-02-24 11:19] LABS: Microscopic, Urine URINE MICROSCOPIC (MICROSCOPIC)
[2025-02-24 11:19] LABS: Activated Partial Thrombo Time 28.4 seconds (22.8-30.6); Prothrombin Time 12.2 seconds (10.1-12.5)
[2025-02-24 11:23] LABS: Appearance,Urine CLEAR (Clear); Bilirubin,Urine Negative (Negative); Blood, Urine Negative (Negative); Color,Urine YELLOW (Yellow); Glucose,Urine (UA) Negative (Negative); Ketones,Urine Negative (Negative); Leukocyte Esterase,Urine TRACE (Negative); Nitrate,Urine POSITIVE (Negative); Protein,Urine Negative (Negative); Specific Gravity, Urine 1.015 (1.005-1.030); Urobilinogen,Urine 0.2 EU/dl (0.2)
[2025-02-24] MEDS: RINGERS SOLUTION,LACTATED 500 ML 999 ML IV (11:26)
--- NOTE | 2025-02-24 11:33 | PC.NURSE ---
rounded on pt at this time, pt given warm blanket, no other needs voiced. family at bedside, call rodriguez within reach, side rails up x2.
[2025-02-24] MEDS: 0.9 % SODIUM CHLORIDE 50 ML VIAL IV (11:45)
[2025-02-24] MEDS: IOPAMIDOL-370 (76%);100ML BOTTLE 80 ML IV (11:45)
[2025-02-24 11:49] LABS: Bacteria,Urine 4+ /lpf; Squamous Epithelial Cell,Urine Occasional #/hpf (0-5)
[2025-02-24 12:11] LABS: HIV Combo NEGATIVE (Negative)
[2025-02-24 12:19] LABS: Hepatitis C Ab Qual. W/ RFX NEGATIVE (Negative)
--- NOTE | 2025-02-24 12:31 | PC.NURSE ---
per MD no blood cultures needed
[2025-02-24] MEDS: CEFTRIAXONE SODIUM 2 GM in 0.9 % SODIUM CHLORIDE 100 ML IV (12:34)
[2025-02-24 12:38] LABS: Albumin/Globulin Ratio 1.1 (1.1-1.8); Anion Gap 12.1 mEq/L (5-15); Carbon Dioxide 22 mmol/L (22.0-30.0); Globulin 3.5 g/dL (1.3-3.2)
[2025-02-24] MEDS: KETOROLAC 30MG/ML VIAL 15 MG IV (13:06)
[2025-02-24] MEDS: METHOCARBAMOL 500MG TABLET 500 MG PO (13:07)
[2025-02-24] MEDS: OXYCODONE 5MG IMMEDIATE RELEASE TABLET 5 MG PO (13:07)
[2025-02-24 15:06] LABS: Reflex Lactic Add Lactic Reflex
--- NOTE | 2025-02-27 17:43 | PC.NURSE ---
urine culture discussed with Dr Adryan Ta, on appropriate abx, ntd.
== END 2025-02-24 13:27 | disposition home or self-care (01) ==
PROVIDERS: Emergency Provider Emergency Medicine; PCP Family Medicine
DX: S32.020A Wedge compression fracture of second lumbar vertebra, initial encounter for closed fracture (principal); S22.059A Unspecified fracture of T5-T6 vertebra, initial encounter for closed fracture; N39.0 Urinary tract infection, site not specified; I77.4 Celiac artery compression syndrome; K55.1 Chronic vascular disorders of intestine; N28.1 Cyst of kidney, acquired; W19.XXXA Unspecified fall, initial encounter; Z11.59 Encounter for screening for other viral diseases; Z11.4 Encounter for screening for human immunodeficiency virus [HIV]
CPT/HCPCS: 70450; 71275; 72125; 72128; 72131; 74174; 80053; 81001; 83605; 83690; 85025; 85610; 85730; 86803; 87086; 87088; 87186; 87389; 96365; 96375; 99285; J0131; J0696; J1885; J2405; J3010; J7120; Q9967

== ENCOUNTER 2025-07-08 08:10 | Outpatient (CLI) | payer MEDICARE, SELFPAY | END 2025-07-08 23:59 | disposition home or self-care (01) | PROVIDERS: PCP Family Medicine; Visit Provider Family Medicine | DX: N39.0 Urinary tract infection, site not specified (principal) | CPT/HCPCS: 87086; 87088 ==

== ENCOUNTER 2025-07-12 08:10 | Outpatient (CLI) | payer MEDICARE, SELFPAY ==
--- OUTSIDE RECORDS SUMMARY | 2025-02-05 08:00 | XMS_ITS | Encounter Summary ---
Author Organization [place] [address] Care Team Providers Care Appeals Manager Name Role Phone No Pcp, Per Patient Primary Care Provider Evelyne prabhakar Encounter Details Date Type Department Care Team (Latest Contact Info) Description 02/05/2025 8:00 AM EDT Hospital Encounter SE Referral Lab 1 [place] [address] Valentino Ugalde MD [address] [facility] [address] [place] [address] Encounter for general adult medical examination without abnormal findings Social History Tobacco Use Types Packs/Day Years Used Date Smoking Tobacco: Former Cigarettes Q uit: 1991 Passive Smoke Exposure: Past Smokeless Tobacco: Never Alcohol Use Standard Drinks/Week Comments Not Currently 0 (1 standard drink = 0.6 oz pur e alcohol) [facility] Utilities Answer Date Recorded In the past 12 months has [employer] electric, gas, oil, or water company threatened to shut off services in your home? No 06/23/2025 Overall Financial Resource Strain (CARDIA) Answe r Date Recorded How hard is it for you to pa y for the very basics like food, housing, medical care, and heating? Not very hard 06/23/2025 PHQ-2 Answer Date Recorded PHQ-2 Total Score 0 06/23/2025 [facility] [place] of Occupat ional Health - Occupational Stress [...] money to get more. Never true 06/23/2025 [facility] IP Transportation Answer D ate Recorded [...] 1:16 PM EDT Emiliano Jimenez RN * [place] Suicide Severity Rating Scale (Q shift for [...] life? 0 06/23/2025 1:16 PM EDT Bonifacio Jimenez RN documented as of this encounter Plan of Treatment Upcoming Encounters Date Type Department Care Team (Late st Contact Info) Description 07/16/2025 10:00 AM EDT Office Visit [place] [address] Renae Durand APRN [address] [place] [address] documented as of this encounter Results * [...] 6:52 AM EDT [facility] [place] Percent 12.7 % 02/12/2025 6:52 AM EDT [facility] Eos Percent 0.0 % 02/12/2025 6:52 AM EDT [facility] Baso Percent 0.6 % 02/12/2025 6:52 AM EDT [facility] Neut # 1.6 1.6 - 6.1 x10(3)/[facility] 02/12/2025 6:52 AM EDT [facility] Comment:Neutrophils equals s egs plus bands IMMGRAN# 0.0 0.0 - 0.1 x10(3)/[facility] 02/12/2025 6:52 AM EDT [facility] Comment:Automated count of m etamyelocytes, myelocytes and promyelocytes. An absolute IG <0.1 is reported as 0.0. Lymph # 1.3 1.2 - 3.9 x10(3)/[facility] 02/12/2025 6:52 AM EDT [facility] [place] # 0.4 0.3 - 0.9 x10(3)/[facility] 02/12/2025 6:52 AM EDT [facility], [facility] Eos# 0.0 0.0 - 0.5 x10(3)/[facility] 02/12/2025 6:52 AM EDT [facility] [employer] [facility] Baso # 0.0 0.0 - 0.1 x10(3)/[facility] 02/12/2025 6:52 AM EDT [facility] [employer], [facility] Blood VENOUS BLOOD / Unknown Venipuncture / Unknown 02/12/2025 4:50 AM EDT 02/12/2025 6:30 AM EDT us Valentino Ugalde MD HEMATOLOGY ORDERABLES Final Res ult [facility], [address] , [place] [address] documented in this encounter Visit Diagnoses Diagnosis Encounter for general adult medical examination without abnormal findings Routine general medical examination at a health care facility documented in this encounter Additional Health Concerns Infection Onset Date Last Indicated Resolved Time ESBL organism Comment:ESBL urine: 05/23, 06/1205/23/2025 06/12/2025 documented as of this encounter Care Teams Appeals Manager Relationship Specialty Start Date End Date No Pcp, Per Patient PCP - General 06/04/24 documented as of this encounter
--- OUTSIDE RECORDS SUMMARY | 2025-02-05 08:00 | XMS_ITS | Encounter Summary ---
Author Organization [place] [address] Care Team Providers Care Technical Staff Assistant Name Role Phone No Pcp, Per Patient Primary Care Provider Evelyne prabhakar Encounter Details Date Type Department Care Team (Latest Contact Info) Description 02/05/2025 8:00 AM EDT Hospital Encounter SE Referral Lab 1 [place] [address] Valentino gUalde MD 47 [facility] [address] [place] [address] Encounter for general adult medical examination without abnormal findings Social History Tobacco Use Types Packs/Day Years Used Date Smoking Tobacco: Former Cigarettes Q uit: 1991 Passive Smoke Exposure: Past Smokeless Tobacco: Never Alcohol Use Standard Drinks/Week Comments Not Currently 0 (1 standard drink = 0.6 oz pur e alcohol) [facility] Utilities Answer Date Recorded In the past 12 months has [employer] electric, gas, oil, or water company threatened to shut off services in your home? No 06/23/2025 Overall Financial Resource Strain (CARDIA) Answe r Date Recorded How hard is it for you to pa y for the very basics like food, housing, medical care, and heating? Not very hard 06/23/2025 PHQ-2 Answer Date Recorded PHQ-2 Total Score 0 06/23/2025 [facility] [place] of Occupat ional Health - Occupational Stress [...] money to get more. Never true 06/23/2025 [facility] IP Transportation Answer D ate Recorded [...] 1:16 PM EDT Emiliano Jimenez RN * [place] Suicide Severity Rating Scale (Q shift for [...] 10:00 AM EDT Office [place] [address] Renae Durand APRN [address] [place] [address] documented as of this encounter Results * (ABNORMAL) PREALBUMIN (02/12/2025 4:50 AM EDT) Prealbumin 8.9(L) 20.0 - 40.0 mg/dL 02/12/2025 7:15 AM EDT [employer] Blood VENOUS BLOOD / Unknown Venipuncture / Unknown 02/12/2025 4:50 AM EDT 02/12/2025 6:30 AM EDT us Valentino Ugalde MD CHEMISTRY ORDERABLES Final Resu lt [employer] 1 [facility] , [address] [place] [id number] documented in this encounter Visit Diagnoses Diagnosis Encounter for general adult medical examination without abnormal findings Routine general medical examination at a health care facility documented in this encounter Additional Health Concerns Infection Onset Date Last Indicated Resolved Time ESBL organism Comment:ESBL urine: 05/23, 06/1205/23/2025 06/12/2025 documented as of this encounter Care Teams Technical Staff Assistant Relationship Specialty Start Date End Date No Pcp, Per Patient PCP - General 06/04/24 documented as of this encounter
--- OUTSIDE RECORDS SUMMARY | 2025-02-05 08:00 | XMS_ITS | Encounter Summary ---
Author Organization [place] [address] Care Team Providers Care Director Of Strategic Initiatives Name Role Phone No Pcp, Per Patient Primary Care Provider Evelyne prabhakar Encounter Details Date Type Department Care Team (Latest Contact Info) Description 02/05/2025 8:00 AM EDT Hospital Encounter SE Referral Lab 1 [place] [address] Valentino Ugalde MD [address] [facility] [address] [place] [address] Encounter for general adult medical examination without abnormal findings Social History Tobacco Use Types Packs/Day Years Used Date Smoking Tobacco: Former Cigarettes Q uit: 1991 Passive Smoke Exposure: Past Smokeless Tobacco: Never Alcohol Use Standard Drinks/Week Comments Not Currently 0 (1 standard drink = 0.6 oz pur e alcohol) [facility] Utilities Answer Date Recorded In the past 12 months has [employer] electric, gas, oil, or water company threatened to shut off services in your home? No 06/23/2025 Overall Financial Resource Strain (CARDIA) Answe r Date Recorded How hard is it for you to pa y for the very basics like food, housing, medical care, and heating? Not very hard 06/23/2025 PHQ-2 Answer Date Recorded PHQ-2 Total Score 0 06/23/2025 [facility] [place] of Occupat ional Health - Occupational Stress [...] money to get more. Never true 06/23/2025 [facility] IP Transportation Answer D ate Recorded In [...] 1:16 PM EDT Emiliano Jimenez RN * [place] Suicide Severity Rating Scale (Q shift for [...] 10:00 AM EDT [place] [address] Renae Durand APRN [address] [place] [address] documented as of this encounter Results * (ABNORMAL) COMPREHENSIVE METABOLIC PANEL (02/12/2025 4:50 AM EDT) Sodium 136 136 - 145 mmol/L 02/12/2025 7:12 AM EDT [facility] Potassium 4.4 3.5 - 5.0 mmol/L 02/12/2025 7:12 AM EDT [facility] Chloride 102 98 - 107 mmol/L 02/12/2025 7:12 AM EDT [facility] Total CO2 24 22 - 29 mmol/L 02/12/2025 7:12 AM EDT [facility] Anion Gap 10 7 - 16 mmol/L 02/12/2025 7:12 AM EDT [facility] Calcium 9.1 8.8 - 10.4 mg/dL 02/12/2025 7:12 AM EDT [facility] Glucose Lvl 101(H) 70 - 99 mg/dL 02/12/2025 7:12 AM EDT [facility] BUN 17 8 - 23 mg/dL 02/12/2025 7:12 AM EDT [facility] Creatinine 1.10 0.51 - 1.30 mg/dL 02/12/2025 7:12 AM EDT [facility] Albumin 3.4 3.2 - 4.6 gm/dL 02/12/2025 7:12 AM EDT [facility] Total Protein 6.2(L) 6.4 - 8.3 [...] recommended by the National Kidney Foundation - [place] Society of Nephrology Task Force. Blood VENOUS BLOOD / Unknown Venipuncture / Unknown 02/12/2025 4:50 AM EDT 02/12/2025 6:30 AM EDT us Valentino Ugalde MD CHEMISTRY ORDERABLES Final Resu lt [facility] [employer] [address] [place] [address] , [place] [address] documented in this encounter Visit Diagnoses Diagnosis Encounter for general adult medical examination without abnormal findings Routine general medical examination at a health care facility documented in this encounter Additional Health Concerns Infection Onset Date Last Indicated Resolved Time ESBL organism Comment:ESBL urine: 05/23, 06/1205/23/2025 06/12/2025 documented as of this encounter Care Teams Director Of Strategic Initiatives Relationship Specialty Start Date End Date No Pcp, Per Patient PCP - General 06/04/24 documented as of this encounter
--- OUTSIDE RECORDS SUMMARY | 2025-02-05 08:00 | XMS_ITS | Encounter Summary ---
Author Organization [facility] [place] [address] Care Team Providers Care Bladder Changer Name Role Phone No Pcp, Per Patient Primary Care Provider Evelyne prabhakar Encounter Details Date Type Department Care Team (Latest Contact Info) Description 02/05/2025 8:00 AM EDT Hospital Encounter SE Referral Lab 1 [place] [address] Valentino Ugalde MD 47 [facility] [address] [place] [address] Encounter for general adult medical examination without abnormal findings Social History Tobacco Use Types Packs/Day Years Used Date Smoking Tobacco: Former Cigarettes Q uit: 1991 Passive Smoke Exposure: Past Smokeless Tobacco: Never Alcohol Use Standard Drinks/Week Comments Not Currently 0 (1 standard drink = 0.6 oz pur e alcohol) [facility] Utilities Answer Date Recorded In the past 12 months has [employer] electric, gas, oil, or water company threatened to shut off services in your home? No 06/23/2025 Overall Financial Resource Strain (CARDIA) Answe r Date Recorded How hard is it for you to pa y for the very basics like food, housing, medical care, and heating? Not very hard 06/23/2025 PHQ-2 Answer Date Recorded PHQ-2 Total Score 0 06/23/2025 [facility] [place] of Occupat ional Health - Occupational Stress [...] money to get more. Never true 06/23/2025 [facility] IP Transportation Answer D ate [...] 1:16 PM EDT Emiliano Jimenez RN * [place] Suicide Severity Rating Scale (Q shift for [...] 10:00 AM EDT Office [place] [address] Renae Durand APRN [address] [place] [address] Scheduled Orders Name Type Priority Associated Diagnoses [...] documented as of this encounter Care Teams Bladder Changer Relationship Specialty Start Date End Date No Pcp, Per Patient PCP - General 06/04/24 documented as of this encounter
--- OUTSIDE RECORDS SUMMARY | 2025-02-05 08:00 | XMS_ITS | Encounter Summary ---
Author Organization [place] [address] Care Team Providers Care Lead Clinical Research Coordinator Name Role Phone No Pcp, Per Patient Primary Care Provider Evelyne prabhakar Encounter Details Date Type Department Care Team (Latest Contact Info) Description 02/05/2025 8:00 AM EDT Hospital Encounter SE Referral Lab 1 [place] [address] Valentino Ugalde MD 47 [facility] [address] [place] [address] Encounter for general adult medical examination without abnormal findings Social History Tobacco Use Types Packs/Day Years Used Date Smoking Tobacco: Former Cigarettes Q uit: 1991 Passive Smoke Exposure: Past Smokeless Tobacco: Never Alcohol Use Standard Drinks/Week Comments Not Currently 0 (1 standard drink = 0.6 oz pur e alcohol) [facility] Utilities Answer Date Recorded In the past 12 months has [employer] electric, gas, oil, or water company threatened to shut off services in your home? No 06/23/2025 Overall Financial Resource Strain (CARDIA) Answe r Date Recorded How hard is it for you to pa y for the very basics like food, housing, medical care, and heating? Not very hard 06/23/2025 PHQ-2 Answer Date Recorded PHQ-2 Total Score 0 06/23/2025 [facility] [employer] [place] of Occupat ional Health - Occupational Stress [...] money to get more. Never true 06/23/2025 [facility] IP Transportation Answer D ate Recorded [...] drinking? 0 04/30/2025 10:00 PM THERESET Nora Paze RN How often do you have six [...] 1:16 PM EDT Emiliano Jimenez RN * [place] Suicide Severity Rating Scale (Q shift for [...] 10:00 AM EDT [place] [address] Renae Durand APRN [address] [place] [address] Scheduled Orders Name Type Priority Associated Diagnoses [...] documented as of this encounter Care Teams Lead Clinical Research Coordinator Relationship Specialty Start Date End Date No Pcp, Per Patient PCP - General 06/04/24 documented as of this encounter
--- OUTSIDE RECORDS SUMMARY | 2025-02-07 08:42 | XMS_ITS | Encounter Summary ---
Author Organization [facility] [place] [address] [place] [address] Care Team Providers Care Line Analyst Name Role Phone No Pcp, Per Patient Primary Care Provider Evelyne prabhakar Encounter Details Date Type Department Care Team (Latest Contact Info) Description 02/07/2025 8:42 AM EDT Hospital Encounter [facility] Referral Lab [address] [place], [place] [id number] [phone] Encounter for general adult medical examination without abnormal findings Social History Tobacco Use Types Packs/Day Years Used Date Smoking Tobacco: Former Cigarettes Q uit: 1991 Passive Smoke Exposure: Past Smokeless Tobacco: Never Alcohol Use Standard Drinks/Week Comments Not Currently 0 (1 standard drink = 0.6 oz pur e alcohol) [facility] Utilities Answer Date Recorded In the past 12 months has [employer], gas, oil, or water [employer] threatened to shut off services in your home? No 06/23/2025 Overall Financial Resource Strain (CARDIA) Answe r Date Recorded How hard is it for you to pa y for the very basics like food, housing, medical care, and heating? Not very hard 06/23/2025 PHQ-2 Answer Date Recorded PHQ-2 Total Score 0 06/23/2025 [facility] Occup[facility] - Occupational Stress [...] money to get more. Never true 06/23/2025 [facility] IP Transportation Answer D ate Recorded [...] N Feeling down, depressed, or hopeless 0 06/23/2025 4:12 PM EDT Chio Garber R N PHQ-2 Total Score 0 06/23/2025 4:12 PM EDT Chio Garber RN * PHQ-9 Total Score Answer Date of Assessment Author 0 06/23/2025 4:12 PM EDT Sha Garber RN * PHQ-2 Total Score Answer Date of Assessment Author 0 06/23/2025 4:12 PM EDT Sha Garbre RN * Suicide Severity Rating Answer Date of Assessment Author No Risk 06/23/2025 1:16 PM EDT Emiliano Jimenez RN * [place] Suicide Severity Rating Scale (Q shift for [...] 10:00 AM EDT Office [place] [address] Renae Durand APRN [address] [place] [address] Scheduled Orders Name Type Priority Associated Diagnoses [...] documented as of this encounter Care Teams Line Analyst Relationship Specialty Start Date End Date No Pcp, Per Patient PCP - General 06/04/24 documented as of this encounter
--- OUTSIDE RECORDS SUMMARY | 2025-04-30 16:07 | XMS_ITS | Encounter Summary ---
Author Organization [place] [address] Care Team Providers Care Reconciliation Analyst Name Role Phone No Pcp, Per Patient Primary Care Provider Evelyne prabhakar Reason for Visit * Reason Comments Wound Dehiscence Pt presents per ems from [facility], toes amputated on left foot, here for wound check. * Auth/Cert/Inpt (Routine) Specialty Diagnoses / Procedures Referred By Contac t Referred To Contact Diagnoses Wound dehiscence Referral ID Status Reason Start Date Expiration Date Visits Re quested Visits Authorized [id number] 1 1 Encounter Details Date Type Department Care Team (Latest Contact Info) Description 04/30/2025 4:07 PM EDT - 06/10/2025 4:06 PM EDT Hospital Encounter EDG 5D T[facility] [address] [place] [id number] Donnie Kaur MD [address] [place] [address] [place] [address] Marcell Aguirre MD [address] [place] [address] [place] [address] Stephne Pickard MD [address] [place] [address] [place] [address] Trino Montiel MD [address] [place] [address] DR [place], [place] [phone] Wound dehiscence (Primary Dx); Typical atrial flutter (HCC); Left foot pain; PAD (peripheral artery disease); Critical limb ischemia of left lower extremity (HCC); Preop testing Discharge Disposition: [facility] Facility Social History Tobacco Use Types Packs/Day Years Used Date Smoking Tobacco: Former Cigarettes Q uit: 1991 Passive Smoke Exposure: Past Smokeless Tobacco: Never Alcohol Use Standard Drinks/Week Comments Not Currently 0 (1 standard drink = 0.6 oz pur e alcohol) [facility] Utilities Answer Date Recorded In the past 12 months has e electric, gas, oil, or water company threatened to shut off services in your home? No 05/01/2025 Overall Financial Resource Strain (CARDIA) Answe r Date Recorded How hard is it for you to pa y for the very basics like food, housing, medical care, and heating? Not hard at all 05/01/2025 PHQ-2 Answer Date Recorded PHQ-2 Total Score 0 05/01/2025 [employer] [place] [facility] - Occupational Stress Questionnaire Answer Date Recorded Do you feel stress - tense, restless, nervous, or anxious, or unable to sleep at night because your mind is troubled all the time - these days? Not at all 05/01/2025 Exercise Vital Sign Answer Date Recorde d On average, how many days pe r week do you engage in moderate to strenuous exercise (like a brisk walk)? 0 days 05/01/2025 On average, how many minutes do you engage in exercise at this level? 0 min 05/01/2025 Hunger Vital Sign Answer Date Recorded Within the past 12 months, y ou worried that your food would run out before you got the money to buy more. Never true 05/01/20 25 Within the past 12 months, t he food you bought just didn't last and you didn't have money to get more. Never true 05/01/2025 [facility] IP Transportation Answer D ate Recorded In the past 12 months, has l ack of reliable transportation kept you from medical appointments, meetings, work or from getting things needed for daily living? No 05/01/2025 Sexually Active Control Partners Comments Not Currently Male Comments No Sex and Gender Information Value Date Recorded Sex Assigned at Not on file Legal Sex Female 12:25 PM EDT Gender Identity Not on file Sexual Orientation Not on file documented as of this encounter Last Filed Vital Signs Vital Sign Reading Time Taken Comments Blood Pressure 106/61 06/10/2025 12:49 PM EDT Pulse 58 06/10/2025 1:06 PM EDT Temperature 36.3 C (97.3 F) 06/10/2025 12:49 PM EDT Respiratory Rate 20 06/10/2025 12:49 PM EDT Oxygen Saturation 95% 06/10/2025 12:49 PM EDT Inhaled Oxygen Concentration - - Weight 57.2 kg (126 lb 1.7 oz) 06/10/2025 6:51 A M EDT Height 157.5 cm (5' 2 ) 04/30/2025 10:42 PM EDT Body Mass Index 23.06 04/30/2025 10:42 PM EDT documented in this encounter Functional Status * Alcohol Screening [...] interest or pleasure in doing things 0 05/01/2025 3:13 PM EDT Rosario Izaguirre MSW Feeling down, depressed, or hopeless 0 05/01/2025 3:13 PM EDT Rosario Izaguirre M SW PHQ-2 Total Score 0 05/01/2025 3:13 PM EDT Dmitriy, Rosario, [place] * PHQ-9 Total Score Answer Date of Assessment Author 0 05/01/2025 3:13 PM EDT Izaguirre, Lina jadeherlinda, [place] * PHQ-2 Total Score Answer Date of Assessment Author 0 05/01/2025 3:13 PM EDT Dmitriy, Lina harding, [place] * Suicide Severity Rating Answer Date of Assessment Author No Risk 04/30/2025 4:20 PM EDT Hillary Arriaza RN * [place] Suicide Severity Rating Scale (Q shift for moderate and high) Question Answer Date of Assessment Author 1. In the past month, have you wished you were or wished you could go to sleep and not wake up? 0 04/30/2025 4:20 PM EDT Tyler Arriaza RN 2. In the past month, have you actually had any thoughts of killing yourself? (If no, skip to question 6) 0 04/30/2025 4:20 PM EDT Tyler Arriaza RN 6. Have you ever done anything, started to do anything, or prepared to do anything to end your life? 0 04/30/2025 4:20 PM EDT Gustabo Arriaza RN documented as of this encounter Discharge Summaries * Trino Montiel MD - 06/10/2025 4:06 PM EDT Images from the original note were not included. [facility] Discharge Summary Patient Name: Skyler Bautista : 1940 Admit Date: 04/30/2025 Discharge Date: 06/10/2025 Admitting Physician: Marcell Aguirre MD Discharging Physician: Trino Montiel MD Reason for Hospitalization: Active Hospital Problems Acute cystitis without hematuria Metabolic encephalopathy Acute respiratory failure with hypoxemia (HCC) Acute pulmonary edema (HCC) Hypotension Pancytopenia (HCC) Palliative care by specialist Goals of care, counseling/discussion Wound dehiscence *Diabetic foot infection (HCC) S/P transmetatarsal amputation of foot, left (HCC) Critical limb ischemia of left lower extremity (HCC) Stage 3a chronic kidney disease (HCC) Anemia in other chronic diseases classified elsewhere Hyponatremia PAD (peripheral artery disease) Acute on chronic heart failure with preserved ejection fraction (HCC) Paroxysmal atrial fibrillation (HCC) 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 Type 2 diabetes mellitus, without long-term current use of insulin (HCC) Hypertension associated with diabetes (HCC) Acute heart failure with preserved ejection fraction (HCC)(Resolved) Brief Hospital Summary: Did go to [facility] when bed available. Full summary Assessment & Plan Diabetic foot infection (HCC) Type 2 diabetes mellitus, without long-term current use of insulin (HCC) S/P transmetatarsal amputation of foot, left (HCC) - Wound dehiscence over previous left TMA site. ESR, CRP normal. WBC wnl. Afebrile. No acute infection. 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) 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 Asa , statin and renexa Paroxysmal atrial fibrillation (HCC) Acute on chronic heart failure with preserved ejection fraction (HCC) - 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 - had been holding coreg for lower BPs - restart now with hold parameters as BP increased Hypertension associated with diabetes (HCC) - A1c 5.3 - diet controlled - not following FSBS PAD (peripheral artery disease) - vascular following - severe disease - AKA as above Stage 3a chronic kidney disease (HCC) Anemia in other chronic diseases classified elsewhere - A1c 5.3 - diet controlled - not following FSBS Hyponatremia Critical limb ischemia of left lower extremity (HCC) Wound dehiscence Palliative care by specialist Goals of care, counseling/discussion Pancytopenia (HCC) Acute respiratory failure with hypoxemia (HCC) Acute pulmonary edema (HCC) - transferred to MICU 05/26 with hypotension and hypoxia - pulm edema on cxr - echo with EF 55-60%, indeterminate diastolic function, pulm pressure 41 mmHg - diuresis Hypotension resolved Metabolic encephalopathy resolved Acute cystitis without hematuria - ESBL producing proteus on cx. Completed zosyn -avoid garrido as able for retention Labs and imaging follow-up needed: Urine CS and symptoms Pending Labs Order Current Status Collection Date and Time ECG AND WAVEFORMS - TELEMETRY Preliminary result 06/09/2025 8:24 PM URINE CULTURE (NO STAIN) Preliminary result 06/09/2025 11:46 AM Consultants: History Some SOB at times and does not think anxiety however multiple times had anxiety attack Pain better some No urine retention per se Today no dysuria Discharge Exam: Vitals: 06/10/25 1306 BP: Pulse: 58 Resp: Temp: SpO2: GEN: NAD, comfortable HEENT: NCAT, EOMI RESP: CTAB, no w/r/r CVS: RRR, No GRM ABD: soft, NT, ND, +BS, no r/g/r , no sig SPC discomfort yet again, no CTA tenderness EXT: no pedal edema on RLE, left AKA ( lidocaine patch being applied) NEURO: non-focal, CN grossly intact, AAO SKIN: warm and dry, no cyanosis Correct Full Discharge Med List: Medication List START taking these medications * latanoprost 0.005 % Drop Dose: 1 Drop Qty: 2.5 mL Refills: 0 Comment: Make sure original prescriber is OK with it. Commonly known as: XALATAN 1 Drop, Ophthalmic, NIGHTLY If you were already taking this medication, take it this way instead. lidocaine 4 % Ptmd Dose: 1 Patch Qty: 15 Patch Refills: 0 Start: June 11, 2025 Commonly known as: ASPERCREME 1 Patch, Transdermal, DAILY Replaces: lidocaine 5 % Ptmd nortriptyline 10 mg Cap Dose: 10 mg Qty: 15 Capsule Refills: 0 Commonly known as: PAMELOR 10 mg, Oral, NIGHTLY oxyCODONE 5 mg Tab Dose: 5-10 mg Qty: 12 Tablet Refills: 0 Commonly known as: ROXICODONE 5-10 mg, Oral, EVERY 4 HOURS PRN * This list has 1 medication(s) that are the same as other medications prescribed for you. Read thedirections carefully, and ask your doctor or other care provider to review them with you. CHANGE how you take these medications carvediloL 25 mg Tab Dose: 25 mg Qty: 60 Tablet Refills: 0 Commonly known as: COREG 25 mg, Oral, 2 TIMES DAILY WITH MEALS What changed: medication strength how much to take when to take this fUROsemide 40 mg Tab Dose: 40 mg Qty: 30 Tablet Refills: 0 Commonly known as: LASix 40 mg, Oral, DAILY PRN What changed: when to take this reasons to take this nalOXone 4 mg/actuation [place] Dose: 4 mg Qty: 1 Each Refills: 0 Commonly known as: NARCAN 4 mg, Nasal, PRN, [place] the contents of one device (0.1mL) into one nostril upon signs of opioid overdose. Call 911. May repeat dose in other nostril if no response within 2-3 minutes. What changed: Another medication with the same name was removed. Continue taking this medication, and follow the directions you see here. pantoprazole 40 mg Tbec Dose: 40 mg Qty: 60 Tablet Refills: 0 Commonly known as: PROTONIX 40 mg, Oral, 2 TIMES DAILY What changed: when to take this CONTINUE taking these medications acetaminophen 500 mg Tab Dose: 1,000 mg Refills: 0 Commonly known as: TYLENOL ALPRAZolam 0.5 mg Tab Dose: 0.5 mg Qty: 3 Tablet Refills: 0 Commonly known as: XanAX 0.5 mg, Oral, DAILY ANTACID ULTRA STRENGTH 400 mg calcium (1,000 mg) Chew Dose: 1,000 mg Refills: 0 Generic drug: Calcium Carbonate atorvastatin 40 mg Tab Dose: 40 mg Refills: 0 Commonly known as: LIPITOR cyanocobalamin 1,000 mcg Tab Dose: 1,000 mcg Refills: 0 gabapentin 300 mg Cap Dose: 300 mg Qty: 3 Capsule Refills: 0 Commonly known as: NEURONTIN 300 mg, Oral, NIGHTLY polyethylene glycol 17 gram Pwpk Dose: 17 g Refills: 0 Commonly known as: GLYCOLAX, MIRALAX ranolazine 500 mg Tb12 Dose: 1,000 mg Refills: 0 Commonly known as: RANEXA STOP taking these medications Cholecalciferol (Vitamin D3) 50 mcg (2,000 unit) Cap lidocaine 5 % Ptmd Commonly known as: LIDODERM Replaced by: lidocaine 4 % Ptmd ASK your doctor about these medications dorzolamide-timoloL 22.3-6.8 mg/mL Drop Dose: 1 Drop Refills: 0 Commonly known as: COSOPT Ask about: Should I take this medication? * latanoprost 0.005 % Drop Dose: 1 Drop Refills: 0 Commonly known as: XALATAN Ask about: Should I take this medication? * This list has 1 medication(s) that are the same as other medications prescribed for you. Read thedirections carefully, and ask your doctor or other care provider to review them with you. Where to Get Your Medications These medications were sent to [facility] [place] [address] [address] - [phone] [address], [facility] [address] ALPRAZolam 0.5 mg Tab carvediloL 25 mg Tab fUROsemide 40 mg Tab gabapentin 300 mg Cap latanoprost 0.005 % Drop lidocaine 4 % Ptmd nortriptyline 10 mg Cap oxyCODONE 5 mg Tab pantoprazole 40 mg Tbec Condition at Discharge: stable Disposition: SNF Follow-up: [facility] [id number] [phone] Lawrence Wolf MD [address] [place] [address] [place] [address] Follow up on 06/24/2025 Staple removal on Jun 24 Total time spent for discharge more than 32 mins. More than half of the time was spent in coordination of care and med reconciliation.This time includes review of patient's chart including lab values/imaging and nurse and specialists notes. Trino Montiel MD 06/10/2025 documented in this encounter Discharge Instructions * Discharge Instr - Diet* Rhina Nunez RD,TIFFANY - 05/01/2025 3:46 PM EDT Continue a regular diet with foods high in protein. Continue to drink protein shakes 1-2x per day for additional protein. documented in this encounter Medications at Time of Discharge acetaminophen (TYLENOL) 500 mg Oral Tablet Take 1,000 mg by mouth every 6 hours. 03/23/2024 atorvastatin (LIPITOR) 40 mg Oral Tablet Take 40 mg by mouth nightly. Calcium Carbonate (ANTACID ULTRA STRENGTH) 400 mg calcium (1,000 mg) Oral Tablet, Chewable Take 1,000 mg by mouth daily. 03/23/2024 cyanocobalamin 1,000 mcg Oral Tablet Take 1,000 mcg by mouth daily. latanoprost (XALATAN) 0.005 % Opht Drops Apply 1 Drop to eye nightly. 2.5 mL 06/10/2025 lidocaine (ASPERCREME) 4 % Top Adhesive Patch, Medicated Place 1 Patch onto the skin daily. 15 Patch 06/11/2025 nalOXone (NARCAN) 4 mg/actuation Nasl [place], Non-Aerosol 0.1 mL by Nasal route as needed for Opioid Reversal. [place] the contents of one device (0.1mL) into one nostril upon signs of opioid overdose. Call 911. May repeat dose in other nostril if no response within 2-3 minutes. 1 Each 02/04/2025 nortriptyline (PAMELOR) 10 mg Oral Capsule Take 1 Capsule by mouth nightly. 15 Capsule 06/10/2025 pantoprazole (PROTONIX) 40 mg Oral Tablet, Delayed Release (E.C.) Take 1 Tablet by mouth 2 times daily. 60 Tablet 06/10/2025 polyethylene glycol (GLYCOLAX, MIRALAX) 17 gram Oral Powder in Packet Take 17 g by mouth daily. 01/27/2024 ranolazine (RANEXA) 500 mg Oral Tablet Sustained Release 12 hr Take 1,000 mg by mouth daily. 12/25/2018 ALPRAZolam (XANAX) 0.5 mg Oral Tablet Take 1 Tablet by mouth daily for 3 days. 3 Tablet 06/10/2025 06/13/2025 carvediloL (COREG) 25 mg Oral Tablet Take 1 Tablet by mouth 2 times daily (with meals). 60 Tablet 06/10/2025 07/02/2025 fUROsemide (LASIX) 40 mg Oral Tablet Take 1 Tablet by mouth daily as needed for Other (edema, SOB). 30 Tablet 06/10/2025 07/02/2025 gabapentin (NEURONTIN) 300 mg Oral CapsuleIndicatio ns:Left foot pain Take 1 Capsule by mouth nightly for 3 days. 3 Capsule 06/10/2025 06/13/2025 oxyCODONE (ROXICODONE) 5 mg Oral Tablet Take 1-2 Tablets by mouth every 4 hours as needed for Acute Pain (R52). 12 Tablet 06/10/2025 06/28/2025 documented as of this encounter Ordered Prescriptions Prescription Sig Dispense Quantity Refills Last Filled Start Date End Date lidocaine (ASPERCREME) 4 % Top Adhesive Patch, Medicated Place 1 Patch onto the skin daily. 15 Patch 06/11/2025 latanoprost (XALATAN) 0.005 % Opht Drops Apply 1 Drop to eye nightly. 2.5 mL 06/10/2025 nortriptyline (PAMELOR) 10 mg Oral Capsule Take 1 Capsule by mouth nightly. 15 Capsule 06/10/2025 pantoprazole (PROTONIX) 40 mg Oral Tablet, Delayed Release (E.C.) Take 1 Tablet by mouth 2 times daily. 60 Tablet 06/10/2025 oxyCODONE (ROXICODONE) 5 mg Oral Tablet Take 1-2 Tablets by mouth every 4 hours as needed for Acute Pain (R52). 12 Tablet 06/10/2025 5 fUROsemide (LASIX) 40 mg Oral Tablet Take 1 Tablet by mouth daily as needed for Other (edema, SOB). 30 Tablet 06/10/2025 5 carvediloL (COREG) 25 mg Oral Tablet Take 1 Tablet by mouth 2 times daily (with meals). 60 Tablet 06/10/2025 5 gabapentin (NEURONTIN) 300 mg Oral CapsuleIndications :Left foot pain Take 1 Capsule by mouth nightly for 3 days. 3 Capsule 06/10/2025 5 ALPRAZolam (XANAX) 0.5 mg Oral Tablet Take 1 Tablet by mouth daily for 3 days. 3 Tablet 06/10/2025 5 gabapentin (NEURONTIN) 300 mg Oral CapsuleIndications :Left foot pain Take 1 Capsule by mouth nightly for 3 days. 3 Capsule 05/10/2025 5 ALPRAZolam (XANAX) 0.5 mg Oral Tablet Take 1 Tablet by mouth daily for 3 days. 3 Tablet 05/10/2025 documented in this encounter Discharge Disposition Disposition Code Departure Means Destination Comment s [facility] Travis benavides documented in this encounter Progress Notes * Trino Montiel MD - 06/10/2025 4:06 PM EDTAssociated Problem(s): Diabetic foot infection (HCC) - Wound dehiscence over previous left TMA site. ESR, CRP normal. WBC wnl. Afebrile. No acute infection. 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 ESR, CRP normal. WBC wnl. Afebrile. No acute infection. 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 ESR, CRP normal. WBC wnl. Afebrile. No acute infection. 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) * Trino Montiel MD - 06/10/2025 4:06 PM EDTAssociated Problem(s): 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 Asa , statin and renexa * Trino Montiel MD - 06/10/2025 4:06 PM EDTAssociated Problem(s): Paroxysmal atrial fibrillation (HCC) - 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 - had been holding coreg for lower BPs - restart now with hold parameters as BP increased * Trino Montiel MD - 06/10/2025 4:06 PM EDTAssociated Problem(s): Acute on chronic heart failure with preserved ejection fraction (HCC) - 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 - had been holding coreg for lower BPs - restart now with hold parameters as BP increased * Trino Montiel MD - 06/10/2025 4:06 PM EDTAssociated Problem(s): Hypertension associated with diabetes (HCC) - A1c 5.3 - diet controlled - not following FSBS * Trino Montiel MD - 06/10/2025 4:06 PM EDTAssociated Problem(s): PAD (peripheral artery disease) - vascular following - severe disease - AKA as above * Trino Montiel MD - 06/10/2025 4:06 PM EDTAssociated Problem(s): Stage 3a chronic kidney disease (HCC) - A1c 5.3 - diet controlled - not following FSBS * Trino Montiel MD - 06/10/2025 4:06 PM EDTAssociated Problem(s): Anemia in other chronic diseases classified elsewhere - A1c 5.3 - diet controlled - not following FSBS * Trino Montiel MD - 06/10/2025 4:06 PM EDTAssociated Problem(s): Acute respiratory failure with hypoxemia (HCC) - transferred to MICU 05/26 with hypotension and hypoxia - pulm edema on cxr - echo with EF 55-60%, indeterminate diastolic function, pulm pressure 41 mmHg - diuresis * Trino Montiel MD - 06/10/2025 4:06 PM EDTAssociated Problem(s): Acute pulmonary edema (HCC) - transferred to MICU 05/26 with hypotension and hypoxia - pulm edema on cxr - echo with EF 55-60%, indeterminate diastolic function, pulm pressure 41 mmHg - diuresis * Trino Montiel MD - 06/10/2025 4:06 PM EDTAssociated Problem(s): Hypotension resolved * Trino Montiel MD - 06/10/2025 4:06 PM EDTAssociated Problem(s): Metabolic encephalopathy resolved * Trino Montiel MD - 06/10/2025 4:06 PM EDTAssociated Problem(s): Acute cystitis without hematuria - ESBL producing proteus on cx. Completed zosyn * Marisa Garrett RN - 06/10/2025 2:57 PM EDT Discharge Note: Pt to be discharged to [facility], via transport per [facility]. Report called to Katie MCCRAY at [facility]. Verbalized understanding. PIV removed, catheter intact, dressing applied. Awaiting for ambulaNce to arrive to transport pt with belongings. Marisa Garrett RN * Samia Ortega OT - 06/10/2025 2:18 PM EDT 06/10/25 1415 OT Subjective Note Type Reassessment/Re-Evaluation Patient Room/Unit 5425 OT Subjective Comments #1 Pt agreeable to OT Others Present/Assisting MIKE Shipman Admitting Diagnosis pt is an 84 y.o. F admitted 04/30 for diabetic foot infection Precautions Weight Bearing Status Left lower extremity Precaution Info Given Yes;Contact;To use call light to request assistance with all mobility Cognition Orientation Intact Arousal Normal Safety Awareness Impaired Safety Awareness Impairment Minimal Impairments: Needs up to 25% input/direction from therapist in order to identify safety issues and maintain safety. Affect/Ability to cope Impaired Affect/Ability to cope impairment Agitated;Distracted Command Following Impaired Command following impairment Minimal Impairments: Needs up to 25% input/direction from therapist inorder to follow single step commands. Memory Impaired Memory impairment Decreased recall of prior level of function;Decreased recall of recent events;Poor short term memory Communication Intact Pain Screening PT/OT Patient Currently in Pain Yes Pain Rating Patient unable to rate pain Additional Comments nerve pain ,educated on desensitization to L amp site Observation Presentation Patient resting in bed Observation Telemetry;Bed alarm Vitals VSS on RA ADL Interventions Where Assessed Edge of bed;Chair;Sitting on toilet/bedside commode Feeding Assistance Minimal;Cut up food/open containers Grooming Assistance Hair care;Washing face;Stand by;Moderate (ModA/Hair care for detangling SBA for washing face seated) LE Bathing Assistance Maximal;Buttock;Ana area LE Dressing Assistance Maximal;Don/doff R sock Toileting Maximal;Anterior ana care Bed Mobility Rolling Minimal assistance;Contact guard assist;With cues Supine to Sit Minimal assistance;Contact guard assist;With cues Transfers Sit to Stand Moderate assistance;With verbal cues;With 2 people Stand to Sit Moderate assistance;With verbal cues;With 2 people Stand Pivot Transfers Moderate assistance;With cues;With 2 people Additional Comments Pt completes 2 SPT Bed > BSC > Chair OT Gait Gait Non-ambulatory at this time Balance Sitting Balance 2+/5 supports self with 1 UE Standing Balance 1/5 performs 25-50% (moderate assistance) PT/OT Mobility Documentation PT/OT Mobility Score 4 Activity Tolerance Endurance Limits participation and activity Functional Status Score (FSS-ICU) Is the patient currently in ICU? No AM PAC: How much help from another person does the patient currently need... putting on and taking off regular lower body clothing? 1 bathing (including washing, rinsing, drying)? 2 toileting, which includes using toilet, bedpan or urinal? 1 putting on and taking off regular upper body clothing? 3 taking care of personal grooming such as brushing teeth? 3 eating meals? 3 AM PAC DAILY ACTIVITY SCORING Daily Activity Raw Score 13 AM PAC Daily Activity CMS 0-100% Functional Percentage 63.03 AM PAC Daily Activity CMS G Code Modifier CL Education Education To use call light to request assistance with all mobility;Patient/Family Education;Role of Therapy;Safety with mobility;Cues for proper technique;Up with assistance only;Safe and proper post ure/positioning;Safe and proper technique with transfers;Educated on benefits of mobility, upright positioning, and getting out of bed Patient Safety Patient left in chair with needs in reach;Chair/personal alarm activated;Nursing notified of status Assessment Assessment Decreased ADL status;Decreased UE ROM;Decreased UE strength;Decreased endurance;Decreased self-care transfers;Decreased high-level ADLs Prognosis Good;With continued OT s/p acute discharge Progress Slow progress toward goals Rationale for Skilled Therapy Fall Risk;Balance Deficits;Not safe with independent transfers;Not safe ambulating independently;Needs verbal/tactile cues for ADL's;Needs physical cues for ADL's;Requires physical assistance with ADLs;Needs intensive therapy;Requires multi-disciplinary team;Able to make measurable improvements;Decreased endurance and tolerance to activity Goals Time for Goal Achievement/Duration of Treatment 06/24 ADL Goals Pt Will Perform Upper Body Grooming Not met;Supervision;In chair Pt Will Perform Upper Body Bathing With setup;Not met Pt Will Perform Lower Body Bathing Minimal assistance;Not met Pt Will Perform LE Dressing Minimal assistance;Not met Pt Will Perform Toileting Minimal assistance;Not met Functional Transfer Goals Pt Will Perform All Functional Transfers Contact guardance;Not met Arm Goals Pt will complete HEP Supervision;Not Addressed Plan Treatment Interventions ADL retraining;Functional transfer training;UE strengthening/ROM;Endurance training;Patient/Family training;Equipment eval/education;Compensatory technique education;Co-treatment with Physical Therapy OT Frequency 2-5x/wk Recommendation OT Recommendation High frequency, high intensity multi-disciplinary therapy for 15 hours per week. Time In / Time Out 9380-3368 IP OT Individual Treatment Minutes 38 The total time spent caring for this patient included but was not limited to medical record review;communication and education with patient and/or family/caregiver;hands-on treatment;clinical judgement necessary for treatment planning for next session;communication with nursing and/or care coordinat ion/social work regarding patient status and discharge planning * Roni Brannon RN - 06/10/2025 1:38 PM EDT 06/10/25 1335 Ongoing Discharge Planning Evaluation Actual Discharge Plan 06/10/2025 CC FINAL NOTE: Chart reviewed, DC order noted. Note pt is alert andoriented x3. CC met with pt at bedside and completed DC round. Pt states her DC plan [facility] to [facility]jaida Bucio for [place] okay with pt coming back today and updated on Ambulance time of 1500. Pt states she will have all the help and support she needs for home. Pt states understanding of all DC medications, care needs, and follow up appointments. . Sister notified of return to [facility]. No DC needs requested by pt or identified by CC. CC will sign off. Final Note Referral to SEP Care Management (SEP patients only) N/A Discharge Round Completed Yes Post Acute Facility [facility] Post Acute Form Assign to DC [place] No Post Acute Form Completed Yes Care Coordination Discharge Ready? Yes [facility] DME Arranged at Discharge None DME Assign to DC Tech No DME completed by [facility] No Transportation at Discharge Personal vehicle Date Expected 06/10/25 Time Expected 1500 Transportation Assign to [facility] Yes Confirmed Discharge Transportation Plan? 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 Not applicable. Patient not returning home at discharge MD Aware of Plan Yes RN Notified of Plan Yes * Ramonita Jean PTA - 06/10/2025 1:25 PM EDT 06/10/25 1210 PT Subjective Note Type Treatment/Progress Patient Room/Unit 5425 PT Subjective Comments #1 agrees Discharge Information This progress note will serve as the discharge summary if no further therapy is provided prior to the patient being discharged from the hospital. Admitting Diagnosis pt is an 84 y.o. F admitted 04/30 for diabetic foot infection Pain Screening PT/OT Patient Currently in Pain Yes Pain Rating Patient unable to rate pain Additional Comments patient reports nerve pain Cognition Orientation Intact Arousal Normal Safety Awareness Normal Safety Awareness Impairment Minimal Impairments: Needs up to 25% input/direction from therapist in order to identify safety issues and maintain safety. Affect/Ability to cope Impaired Affect/Ability to cope impairment Agitated;Distracted Command Following Impaired Command following impairment Minimal Impairments: Needs up to 25% input/direction from therapist inorder to follow single step commands. Memory Impaired Memory impairment Decreased recall of prior level of function;Decreased recall of recent events;Poor short term memory Communication Intact Precautions Therapy Precautions Yes Weight Bearing Status Left lower extremity Precaution Info Given Yes;Contact;To use call light to request assistance with all mobility Additional Comments ESBL Activity Tolerance Endurance Limits participation and activity Observation Presentation Patient resting in bed Observation Telemetry;Bed alarm Vitals VSS on RA Bed Mobility Rolling Minimal assistance;Contact guard assist;With cues Supine to Sit Minimal assistance;Contact guard assist;With cues Transfers Sit to Stand Moderate assistance;With verbal cues;With 2 people Stand to Sit Moderate assistance;With verbal cues;With 2 people Stand Pivot Transfers Moderate assistance;With cues;With 2 people Additional Comments patient transfers to BSC, able to urinate, able to stand for personal care, patient then transfers to chair, tolerates session well, increased functional activity tolerance Gait Gait Non-ambulatory at this time (due to weakness and anxietey, fear of falling,) Exercise Additional Comments education given on residual limb desensitization to assist with pain management, patient demos understanding Education Education To use call light to request assistance with all mobility;Safety with mobility;Cues for proper technique;Up with assistance only Patient Safety Patient Safety Patient left in chair with needs in reach;Nursing notified of status;Chair/personal alarm activated Assessment Progress Slow progress toward goals;Progressing toward goals Rationale for Skilled Therapy Able to make measurable improvements;Decreased endurance and tolerance to activity;Requires multi-disciplinary team;Needs intensive therapy;Requires physical assistance with ADLs;Not independent with home exercise program;Needs physical cues for ADL's;Fall Risk;Balance Deficits;Not safe ambulating with assist;Not safe with caregiver transferring patient Additional Comments patient working hard with therapy this session Goals Will Perform Supine To Sit With minimal assist;Partly met Will Perform Sit to Supine With minimal assist;Partly met Will Perform Sit to Stand With minimal assist;With assist of 2;Not met Will Transfer Bed/Chair With minimal assist;With assist of 2;Not met Will Ambulate With 2 wheel walker;1-10 feet;With moderate assist;Not assessed Time for Goal Achievement/Duration of Treatment 06/10 Plan Treatment/Interventions Continue with current plan of care PT Frequency 3-5x/week Recommendation PT Recommendation High frequency, high intensity multi-disciplinary therapy for 15 hours per week. Time In / Time Out 6352-2332 IP PT Treatment Minutes 40 The total time spent caring for this patient included but was not limited to communication with nursing and/or care coordination/social work regarding patient status and discharge planning;assessmentof the patient's progress since the last session;hands-on treatment;communication and education with patient and/or family/caregiver;medical record review * Marisa Garrett RN - 06/10/2025 12:35 PM EDT Progress Note: Patient A&O x 3 and forgetful at times. VSS, NSR/Afib on monitor. Room air, sats >90%, no c/o SOB. Lungs diminished. Scheduled Tylenol and Oxycodone prn given for complaint of postop pain. Skin assessed, No new skin issues. See LDAs on flowsheet. Left AKA JACKIE with noelle C/D/I. Wound care protocol followed per orders. Patient turned every 2 hrs in bed. PIV site c/d/i, blood return noted, no complications. Patient assist x2 to the chair with PT. Pt voiding per BSC. Updated on POC. Bed alarm activated and call light w/in reach. Will continue to monitor. Marisa Garrett RN * Dylan Chowdhury RN - 06/10/2025 5:25 AM EDT Daily progress note: Patient alert and oriented X3. Disoriented to situation. VSS. Afebrile. A-Fib on the monitor. Sats >90% on room air. No c/o short of breath. Patient c/o pain on left leg, managed with PRN Morphine and Roxicodone. Skin assessed- See flowsheet and LDA. No new issues noted. Patient turn every two hours to prevent skin breakdown. Wound care protocol followed. Patient assist x 2. PIV CDI. Flushed well. No complications noted. Bed in lowest locked position with bed alarm on for safety. Call light with in reach. Patient updated with plan of care. * Yuridia Garcia MSW - 06/09/2025 6:39 PM EDT 06/09/251837 Ongoing Discharge Planning Evaluation Actual Discharge Plan 06/09/25 SW update. [facility] had bed [facility]. Pt was not medically stable to md today. If dc on Tuesday, Will need ambulance at md. Sister request a call at md date. Post accute completed. Waiting for bed available at [facility]. SW following * Trino Montiel MD - 06/09/2025 11:10 AM EDTAssociated Problem(s): Diabetic foot infection (HCC) - Wound dehiscence over previous left TMA site. ESR, CRP normal. WBC wnl. Afebrile. No acute infection. Not on abx - podiatry saw - vascular following - MRI L foot 05/03 with mild marrow edema of metatarsal distal stump margins without evidence of osteomyelitis - Angiogram performed, minimal blood flow past the knee, recommended AKA - s/p AKA 05/24 - pain difficult to control with PO meds and recent encephalopathy, adjusting meds on real time basis * Trino Montiel MD - 06/09/2025 11:10 AM EDTAssociated Problem(s): Type 2 diabetes mellitus, without long-term current use of insulin (HCC) - Wound dehiscence over previous left TMA site. ESR, CRP normal. WBC wnl. Afebrile. No acute infection. Not on abx - podiatry saw - vascular following - MRI L foot 7/18 with mild marrow edema of metatarsal distal stump margins without evidence of osteomyelitis - Angiogram performed, minimal blood flow past the knee, recommended AKA - s/p AKA 8/8 - pain difficult to control with PO meds and recent encephalopathy, adjusting meds on real time basis * Trino Montiel MD - 06/09/2025 11:10 AM EDTAssociated Problem(s): S/P transmetatarsal amputation of foot, left (HCC) - Wound dehiscence over previous left TMA site. ESR, CRP normal. WBC wnl. Afebrile. No acute infection. Not on abx - podiatry saw - vascular following - MRI L foot 7/18 with mild marrow edema of metatarsal distal stump margins without evidence of osteomyelitis - Angiogram performed, minimal blood flow past the knee, recommended AKA - s/p AKA 8/8 - pain difficult to control with PO meds and recent encephalopathy, adjusting meds on real time basis * Trino Montiel MD - 06/09/2025 11:10 AM EDTAssociated Problem(s): 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 Asa , statin and renexa * Trino Montiel MD - 06/09/2025 11:10 AM EDTAssociated Problem(s): Paroxysmal atrial fibrillation (HCC) - 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 - had been holding coreg for lower BPs - restart now with hold parameters as BP increased * Trino Montiel MD - 06/09/2025 11:10 AM EDTAssociated Problem(s): Acute on chronic heart failure with preserved ejection fraction (HCC) - 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 - had been holding coreg for lower BPs - restart now with hold parameters as BP increased * Trino Montiel MD - 06/09/2025 11:10 AM EDTAssociated Problem(s): Hypertension associated with diabetes (HCC) - A1c 5.3 - diet controlled - not following FSBS * Trino Montiel MD - 06/09/2025 11:10 AM EDTAssociated Problem(s): PAD (peripheral artery disease) - vascular following - severe disease - AKA as above * Trino Montiel MD - 06/09/2025 11:10 AM EDTAssociated Problem(s): Stage 3a chronic kidney disease (HCC) - A1c 5.3 - diet controlled - not following FSBS * Trino Montiel MD - 06/09/2025 11:10 AM EDTAssociated Problem(s): Anemia in other chronic diseases classified elsewhere - A1c 5.3 - diet controlled - not following FSBS * Trino Montiel MD - 06/09/2025 11:10 AM EDTAssociated Problem(s): Acute respiratory failure with hypoxemia (HCC) - transferred to MICU 05/26 with hypotension and hypoxia - pulm edema on cxr - echo with EF 55-60%, indeterminate diastolic function, pulm pressure 41 mmHg - diuresis * Trino Montiel MD - 06/09/2025 11:10 AM EDTAssociated Problem(s): Acute pulmonary edema (HCC) - transferred to MICU 05/26 with hypotension and hypoxia - pulm edema on cxr - echo with EF 55-60%, indeterminate diastolic function, pulm pressure 41 mmHg - diuresis * Trino Montiel MD - 06/09/2025 11:10 AM EDTAssociated Problem(s): Metabolic encephalopathy resolved * Trino Montiel MD - 06/09/2025 11:10 AM EDTAssociated Problem(s): Acute cystitis without hematuria - ESBL producing proteus on cx. Completed zosyn * Trino Montiel MD - 06/09/2025 11:07 AM EDT PROGRESS NOTE Assessment & Plan Diabetic foot infection (HCC) Type 2 diabetes mellitus, without long-term current use of insulin ([facility]) S/P transmetatarsal amputation of foot, left (HCC) - Wound dehiscence over previous left TMA site. ESR, CRP normal. WBC wnl. Afebrile. No acute infection. Not on abx - podiatry saw - vascular following - MRI L foot 05/03 with mild marrow edema of metatarsal distal stump margins without evidence of osteomyelitis - Angiogram performed, minimal blood flow past the knee, recommended AKA - s/p AKA 05/24 - pain difficult to control with PO meds and recent encephalopathy, adjusting meds on real time basis 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 Asa , statin and renexa Paroxysmal atrial fibrillation (HCC) Acute on chronic heart failure with preserved ejection fraction (HCC) - 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 - had been holding coreg for lower BPs - restart now with hold parameters as BP increased Hypertension associated with diabetes (HCC) - A1c 5.3 - diet controlled - not following FSBS PAD (peripheral artery disease) - vascular following - severe disease - AKA as above Stage 3a chronic kidney disease (HCC) Anemia in other chronic diseases classified elsewhere - A1c 5.3 - diet controlled - not following FSBS Hyponatremia Critical limb ischemia of left lower extremity (HCC) Wound dehiscence Palliative care by specialist Goals of care, counseling/discussion Pancytopenia (HCC) Acute respiratory failure with hypoxemia (HCC) Acute pulmonary edema (HCC) - transferred to MICU 05/26 with hypotension and hypoxia - pulm edema on cxr - echo with EF 55-60%, indeterminate diastolic function, pulm pressure 41 mmHg - diuresis Hypotension Metabolic encephalopathy resolved Acute cystitis without hematuria - ESBL producing proteus on cx. Completed zosyn Assessment/Plan: Urine retention noted and do not place garrido for now UA and CS but with caution with recent ESBL that was treated No sig AMS ATC tylenol and add patches as well and see Labs in AM DW CC to hold off on DC today Sig component of anxiety as well but worry about increasing tryptalline for now with recent hallucinations Some retention could be from anticholinergic action as well Dispo: In AM likely VTE Prophylaxis: Active Hospital Problems Diagnosis *Diabetic foot infection (HCC) Acute cystitis without hematuria Metabolic encephalopathy Acute respiratory failure with hypoxemia (HCC) Acute pulmonary edema (HCC) Hypotension Pancytopenia (HCC) Palliative care by specialist Goals of care, counseling/discussion Wound dehiscence S/P transmetatarsal amputation of foot, left (HCC) Critical limb ischemia of left lower extremity (HCC) Stage 3a chronic kidney disease (HCC) Anemia in other chronic diseases classified elsewhere Hyponatremia PAD (peripheral artery disease) Acute on chronic heart failure with preserved ejection fraction (HCC) Paroxysmal atrial fibrillation (HCC) 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 Type 2 diabetes mellitus, without long-term current use of insulin (HCC) Hypertension associated with diabetes (HCC) Subjective: Pain at times Feels sig pain Did not have good night per her No burning in urine but one time had sig pain while cath was done Sig anxiety as well Objective: BP 130/73 (BP Location: Left arm, Patient Position: Semi Fowlers) Pulse 79 Temp 98.6 ??F (37 ??C) (Oral) Resp 18 Ht 5' 2 (1.575 m) Wt 129 lb 6.6 oz (58.7 kg) SpO2 95% BMI 23.67 kg/m?? I/O last 3 completed shifts: In: 1140 [P.O.:1140] Out: 825 [Urine:825] Weight: 129 lb 6.6 oz (58.7 kg) GEN: NAD, comfortable HEENT: NCAT, EOMI RESP: CTAB, no w/r/r CVS: RRR, No GRM ABD: soft, NT, ND, +BS, no r/g/r , no sig SPC discomfort EXT: no pedal edema on RLE, left AKA NEURO: non-focal, CN grossly intact, AAO SKIN: warm and dry, no cyanosis Labs: Laboratory data and diagnostic testing reviewed 06/09/25. Trino Montiel MD 06/09/2025 11:10 AM * Diony Valdez, MAHENDRA - 06/08/2025 7:00 PM EDT Patient A&O x 4, VSS, A fib on monitor. Room air, sats >90%, no c/o SOB. C/o phantom left leg pain. Being managed with PRN oxy. messaged this PM for breakthrough pain medication. Extra oxy dose ordered and administered at 1826. Skin assessed, No new issues. see LDAs. Wound care protocol followed per orders. Patient turning self frequently in bed. PIV site c/d/i, blood return noted, no complications. Pt retaining urine this AM. Bladder scanned at 1333 for 534ml. MD funez, PRN straight caths ordered. Pt straight cathed for 400 ml at 1638. Pt w/o complaints. Updated on POC. Bed alarm activated and call light w/in reach. Pt encouraged to call out if in need of assistance. * Trino Montiel MD - 06/08/2025 11:33 AM EDTAssociated Problem(s): Diabetic foot infection (HCC) - Wound dehiscence over previous left TMA site. ESR, CRP normal. WBC wnl. Afebrile. No acute infection. Not on abx - podiatry saw - vascular following - MRI L foot 7/18 with mild marrow edema of metatarsal distal stump margins without evidence of osteomyelitis - Angiogram performed, minimal blood flow past the knee, recommended AKA - s/p AKA 8/8 - pain difficult to control with PO meds and recent encephalopathy, adjusting meds on real time basis * Trino Montiel MD - 06/08/2025 11:33 AM EDTAssociated Problem(s): Type 2 diabetes mellitus, without long-term current use of insulin (HCC) - Wound dehiscence over previous left TMA site. ESR, CRP normal. WBC wnl. Afebrile. No acute infection. Not on abx - podiatry saw - vascular following - MRI L foot 7/18 with mild marrow edema of metatarsal distal stump margins without evidence of osteomyelitis - Angiogram performed, minimal blood flow past the knee, recommended AKA - s/p AKA 8/8 - pain difficult to control with PO meds and recent encephalopathy, adjusting meds on real time basis * Trino Montiel MD - 06/08/2025 11:33 AM EDTAssociated Problem(s): S/P transmetatarsal amputation of foot, left (HCC) - Wound dehiscence over previous left TMA site. ESR, CRP normal. WBC wnl. Afebrile. No acute infection. Not on abx - podiatry saw - vascular following - MRI L foot 05/03 with mild marrow edema of metatarsal distal stump margins without evidence of osteomyelitis - Angiogram performed, minimal blood flow past the knee, recommended AKA - s/p AKA 05/24 - pain difficult to control with PO meds and recent encephalopathy, adjusting meds on real time basis * Trino Montiel MD - 06/08/2025 11:33 AM EDTAssociated Problem(s): 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 Asa , statin and renexa * Trino Montiel MD - 06/08/2025 11:33 AM EDTAssociated Problem(s): Paroxysmal atrial fibrillation (HCC) - 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 - had been holding coreg for lower BPs - restart now with hold parameters as BP increased * Trino Montiel MD - 06/08/2025 11:33 AM EDTAssociated Problem(s): Acute on chronic heart failure with preserved ejection fraction (HCC) - 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 - had been holding coreg for lower BPs - restart now with hold parameters as BP increased * Trino Montiel MD - 06/08/2025 11:33 AM EDTAssociated Problem(s): Hypertension associated with diabetes (HCC) - A1c 5.3 - diet controlled - not following FSBS * Trino Montiel MD - 06/08/2025 11:33 AM EDTAssociated Problem(s): PAD (peripheral artery disease) - vascular following - severe disease - AKA as above * Trino Montiel MD - 06/08/2025 11:33 AM EDTAssociated Problem(s): Stage 3a chronic kidney disease (HCC) - A1c 5.3 - diet controlled - not following FSBS * Trino Montiel MD - 06/08/2025 11:33 AM EDTAssociated Problem(s): Anemia in other chronic diseases classified elsewhere - A1c 5.3 - diet controlled - not following FSBS * Trino Montiel MD - 06/08/2025 11:33 AM EDTAssociated Problem(s): Acute respiratory failure with hypoxemia (HCC) - transferred to MICU 05/26 with hypotension and hypoxia - pulm edema on cxr - echo with EF 55-60%, indeterminate diastolic function, pulm pressure 41 mmHg - diuresis * Trino Montiel MD - 06/08/2025 11:33 AM EDTAssociated Problem(s): Acute pulmonary edema (HCC) - transferred to MICU 05/26 with hypotension and hypoxia - pulm edema on cxr - echo with EF 55-60%, indeterminate diastolic function, pulm pressure 41 mmHg - diuresis * Trino Montiel MD - 06/08/2025 11:33 AM EDTAssociated Problem(s): Metabolic encephalopathy resolved * Trino Montiel MD - 06/08/2025 11:33 AM EDTAssociated Problem(s): Acute cystitis without hematuria - ESBL producing proteus on cx. Completed zosyn * Trino Montiel MD - 06/08/2025 11:26 AM EDT PROGRESS NOTE Assessment & Plan Diabetic foot infection (HCC) Type 2 diabetes mellitus, without long-term current use of insulin ([facility]) S/P transmetatarsal amputation of foot, left ([facility]) - Wound dehiscence over previous left TMA site. ESR, CRP normal. WBC wnl. Afebrile. No acute infection. Not on abx - podiatry saw - vascular following - MRI L foot 05/03 with mild marrow edema of metatarsal distal stump margins without evidence of osteomyelitis - Angiogram performed, minimal blood flow past the knee, recommended AKA - s/p AKA 05/24 - pain difficult to control with PO meds and recent encephalopathy, adjusting meds on real time basis 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 Asa , statin and renexa Paroxysmal atrial fibrillation (HCC) Acute on chronic heart failure with preserved ejection fraction (HCC) - 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 - had been holding coreg for lower BPs - restart now with hold parameters as BP increased Hypertension associated with diabetes ([facility]) - A1c 5.3 - diet controlled - not following FSBS PAD (peripheral artery disease) - vascular following - severe disease - AKA as above Stage 3a chronic kidney disease (HCC) Anemia in other chronic diseases classified elsewhere - A1c 5.3 - diet controlled - not following FSBS Hyponatremia Critical limb ischemia of left lower extremity (HCC) Wound dehiscence Palliative care by specialist Goals of care, counseling/discussion Pancytopenia (HCC) Acute respiratory failure with hypoxemia (HCC) Acute pulmonary edema (HCC) - transferred to MICU 05/26 with hypotension and hypoxia - pulm edema on cxr - echo with EF 55-60%, indeterminate diastolic function, pulm pressure 41 mmHg - diuresis Hypotension Metabolic encephalopathy resolved Acute cystitis without hematuria - ESBL producing proteus on cx. Completed zosyn Assessment/Plan: Watch for retention of urine No sig hallucinations Pain control continue Dispo: When bed available VTE Prophylaxis: Active Hospital Problems Diagnosis *Diabetic foot infection (HCC) Acute cystitis without hematuria Metabolic encephalopathy Acute respiratory failure with hypoxemia (HCC) Acute pulmonary edema (HCC) Hypotension Pancytopenia (HCC) Palliative care by specialist Goals of care, counseling/discussion Wound dehiscence S/P transmetatarsal amputation of foot, left (HCC) Critical limb ischemia of left lower extremity (HCC) Stage 3a chronic kidney disease (HCC) Anemia in other chronic diseases classified elsewhere Hyponatremia PAD (peripheral artery disease) Acute on chronic heart failure with preserved ejection fraction (HCC) Paroxysmal atrial fibrillation (HCC) 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 Type 2 diabetes mellitus, without long-term current use of insulin (HCC) Hypertension associated with diabetes (HCC) Subjective: Feels fair At times hurts DW RN Objective: BP 134/65 (BP Location: Right arm, Patient Position: Lying left side) Pulse 96 Temp 98 ??F (36.7 ??C) (Oral) Resp 12 Ht 5' 2 (1.575 m) Wt 120 lb 5.9 oz (54.6 kg) SpO2 97% BMI 22.02 kg/m?? I/O last 3 completed shifts: In: 1185 [P.O.:1185] Out: 2450 [Urine:2450] Weight: 120 lb 5.9 oz (54.6 kg) GEN: NAD, comfortable HEENT: NCAT, EOMI RESP: CTAB, no w/r/r , mild crackles on left side improved CVS: RRR, No GRM ABD: soft, NT, ND, +BS, no r/g/r EXT: no pedal edema on RLE, left AKA NEURO: non-focal, CN grossly intact, AAO SKIN: warm and dry, no cyanosis Labs: Laboratory data and diagnostic testing reviewed 06/08/25. Trino Montiel MD 06/08/2025 11:33 AM * Yuridia Garcia MSW - 06/08/2025 8:31 AM EDT 06/08/25 0831 Ongoing Discharge Planning Evaluation Actual Discharge Plan 06/08/25 SW update. Spoke with Lottie at [facility]. Currently no beds available. [facility] continue to monitor pt for hallucinations. Will need ambulance at dc. Sister requesta call at dc date. Post accute completed. Waiting for bed available at [facility]. SW following * Amna Ferris, RN - 06/08/2025 5:37 AM EDTSummary: progress note Pt A&Ox4, VSS, AFIB on the monitor Sats >90% on RA, no c/o SOB. Has complained about pain for the last hour or so. Tylenol give (only wants one type of pain killerat a time) PIV site c/d/i and NSL. Skin assessed, no new issues. Wound care protocol in place, Q2h turns, heels off-loaded. Ambulating X2 WGB Updated pt and family on POC. Call light w/in reach, bed alarm activated. Urinary retention. Bladder scan at 3 am >980 Straight cath= 800ml Awaiting placement at [facility] * Arnaud Mata, PT - 06/07/2025 4:59 PM EDT 06/07/25 1654 PT Subjective Note Type Treatment/Progress Patient Room/Unit 5425 PT Subjective Comments #1 pt is agreeable to PT Discharge Information This progress note will serve as the discharge summary if no further therapy is provided prior to the patient being discharged from the hospital. Pain Screening PT/OT Patient Currently in Pain Yes Pain Rating 10 Pain Location Leg Pain Orientation Left Additional Comments pt requests medication from RN at end of session Cognition Orientation Intact Arousal Normal Safety Awareness Normal Safety Awareness Impairment Minimal Impairments: Needs up to 25% input/direction from therapist in order to identify safety issues and maintain safety. Affect/Ability to cope Impaired Affect/Ability to cope impairment Anxious;Distracted Command Following Impaired Command following impairment Minimal Impairments: Needs up to 25% input/direction from therapist inorder to follow single step commands. Memory Impaired Memory impairment Poor short term memory Precautions Therapy Precautions Yes Weight Bearing Status Left lower extremity;Non-weight bearing Precaution Info Given Yes;Contact;To use call light to request assistance with all mobility Additional Comments ESBL Observation Presentation Patient resting in bed Observation Telemetry;Bed alarm Bed Mobility Rolling Moderate assistance;Head of bed elevated;With bed rails Supine to Sit Moderate assistance;Head of bed slightly elevated;With bed rails Transfers Sit to Stand Maximum assistance Stand to Sit Maximum assistance Stand Pivot Transfers Maximum assistance Additional Comments pt completes a stand-pivot with drop arm, able to achieve only partial standingand transfers half way. She is able to scoot laterally minimally before a nurse had to assist therapist in scooting her laterally the remainder of the way Gait Gait Non-ambulatory at this time Functional Status Score (FSS-ICU) Is the patient currently in ICU? No PT/OT Mobility Documentation PT/OT Mobility Score 4 AM PAC: How much help from another person does the patient currently need... turning from your back to your side while in a flat bed without using bedrails? 3 moving from lying on your back to sitting on the side of a flat bed without using bedrails? 2 moving to and from a bed to a chair? 2 standing up from a chair using your arms (e.g. wheelchair, or bedside chair)? 2 need to walk in hospital room? 1 climbing 3-5 steps with a railing? 1 AM PAC: BASIC MOBILITY SCORING AM PAC Moblity Raw Score 11 AM PAC Mobility CMS 0-100% Functional Percentage 66.76 AM PAC Mobility CMS G Code Modifier CL Balance Sitting Balance 2+/5 supports self with 1 UE Standing Balance 1/5 performs 25-50% (moderate assistance) Supine Supine Ankle Pumps R LE x10 Supine SAQ's R LE x10 Supine SLR's L LE x10 Supine Hip Abduction R LE x10 Education Education To use call light to request assistance with all mobility;Patient/Family Education;Role of Therapy;Safety with mobility;Cues for proper technique;Up with assistance only;Safe and proper post ure/positioning;Safe and proper technique with transfers;Educated on benefits of mobility, upright positioning, and getting out of bed Patient Safety Patient Safety Patient left in chair with needs in reach;Chair/personal alarm activated;Nursing notified of status Assessment Assessment Decreased gait;Decreased functional mobility;Decreased balance;Decreased ADL status;Decreased RightLower Extremity strength;Decreased Left Lower Extremity strength;Decreased activity tolerance ;Decreased safety judgement Prognosis Fair;With continued PT s/p acute discharge Progress Slow progress toward goals Rationale for Skilled Therapy Able to make measurable improvements;Requires multi-disciplinary team;Needs intensive therapy;Requires physical assistance with ADLs;Not independent with home exercise program;Needs physical cues for ADL's;Decreased endurance and tolerance to activity;Fall Risk;Balance Deficits;Not safe with independent transfers;Not safe ambulating independently Goals Will Perform Supine To Sit With minimal assist;Not met Will Perform Sit to Supine With minimal assist;Not met Will Perform Sit to Stand With minimal assist;With assist of 2;Not met Will Transfer Bed/Chair With minimal assist;With assist of 2;Not met Will Ambulate With 2 wheel walker;1-10 feet;With moderate assist;Not assessed Time for Goal Achievement/Duration of Treatment 06/10 Plan Treatment/Interventions Continue with current plan of care Recommendation PT Recommendation High frequency, high intensity multi-disciplinary therapy for 15 hours per week. Time In / Time Out [id number] IP PT Treatment Minutes 33 The total time spent caring for this patient included but was not limited to hands-on treatment;medical record review;communication and education with patient and/or family/caregiver;clinical judgement necessary for treatment planning for next session;communication with nursing and/or care coordinat ion/social work regarding patient status and discharge planning * Rhina Nunez RD,LD - 06/07/2025 12:35 PM EDT [facility] Nutrition Reassessment Evidence Supported Malnutrition Diagnosis: No malnutrition identified Nutrition Problem/Diagnosis: Nutrition Diagnosis Problem 1: Increased nutrient needs (specify) (kcal and pro) related to increased demand for energy/nutrients as evidenced by wounds. Status: Active nutrition diagnosis Nutrition Prescription: Kcals: 4568-9483 kcal (25-30 kcal/kg using 52.1 kg) Protein (g): 62-78 gm Protein needs based on: 1.2-1.5 gm/kg Fluid (ml): 1 mL/kcal Other (comment): Reviewed 06/07 Plan/Interventions: Meals and Snacks: Regular Medical Food Supplements: Glucerna Therapeutic Medical Food/Supplement Freq: 1xday - [place] Nutrition-Related Medication Management: Lasix, Protonix Nutrition Education: Importance of nutrition to healing and recovery, Small frequent meals, Supplements Nutrition Discharge Instructions: Continue a regular diet with foods high in protein. Continue to drink protein shakes 1-2x per day for additional protein. Skyler Bautista is a 84 y.o. female patient. Admit Diagnosis: Wound dehiscence [T81.30XA] Diabetic foot infection (HCC) [E11.628, L08.9] Subjective: Subjective Comment: Pt visited. Pt reported that she has been eating pretty good. Pt stated she ate 100% of pancakes and jacobs for breakfast. Continued to encourage good PO intake to aid in overallhealing. Noted improved PO intakes per flowsheets. Pt stated that she has been drinking Glucerna, will contine to send. Will follow up PRN Anthropometric Measurements: Height: 5' 1 (154.9 cm) Weight: 123 lb 3.8 oz (55.9 kg) BMI (Calculated): 23.29 Does Patient Have An Amputation?: Yes Percent Amputation: 10.1 % Adjusted BMI: 24 BMI Assessment: 18.5-24.9 Normal Adjusted IBW +/- 10%: 99 lb (44.9 kg) Adjusted % IBW: 124 Other (Comment): Wts have fluctuated, +14L since admit Food/Nutrition Related History: Dietary Orders Ordered Regular Diet DIET EFFECTIVE NOW 05/24/25 1154 GLUCERNA Therapeutic oral supplement 1 'box' Oral Q AM 1 'box' at 05/31/25 0908 Food Insecurity Within the past 12 months, you worried that your food would run out before you got the money to buymore.: Never true Within the past 12 months, the food you bought just didn't last and you didn't have money to get more.: Never true % Avg Meals Consumed: 58 % (x6 meal average) Nutrition Focused Physical Findings: LDAs- Active NG/OG/NJ,Wound,Pressure Injury,or Drain Wound Duration Incision/Wound MASD Coccyx Mid gluteal split 31 days Incision/Wound Closed Surgical Leg Upper;Left 14 days Incision/Wound Skin tear Arm Right;Anterior;Upper open, moist, scant bloody draingage. 12 days Incision/Wound Skin tear Arm Left;Proximal 7 days I/O last 3 completed shifts: In: 700 [P.O.:700] Out: 625 [Urine:625] Edema:Generalized Edema: No Facial Edema: No Sacral Edema: None Right Upper Extremity Edema: None Left Upper Extremity Edema: None Right Lower Extremity Edema: Trace Left Lower Extremity Edema: Trace Perineal Edema: None Abdomen: Abdominal/GI Abdomen Inspection: Soft Bowel Sounds (All Quadrants): Active, Audible Abdominal palpation: Soft Nausea: No Constipation: No When was last BM? (Date): 06/07/25 Stool Assessment: Stool Occurrence: 1 Stool Appearance: Type 4 [place] Stool Chart Stool Color: Brown Stool Amount: Small Biochemical Data/Medical Tests: Pertinent Labs: Glucose 114 Clinical Course: Clinical Course: Admitted with L TMA dehiscence. 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 Transferred to MICU 05/26 d/t hypotension. CXR with pulmonary edema. Palliative care following. Wound Care noted. Placement pending * Trino Montiel MD - 06/07/2025 12:27 PM EDTAssociated Problem(s): Diabetic foot infection (HCC) - Wound dehiscence over previous left TMA site. ESR, CRP normal. WBC wnl. Afebrile. No acute infection. Not on abx - podiatry saw - vascular following - MRI L foot 7/18 with mild marrow edema of metatarsal distal stump margins without evidence of osteomyelitis - Angiogram performed, minimal blood flow past the knee, recommended AKA - s/p AKA 8/8 - pain difficult to control with PO meds and recent encephalopathy, adjusting meds on real time basis * Trino Montiel MD - 06/07/2025 12:27 PM EDTAssociated Problem(s): Type 2 diabetes mellitus, without long-term current use of insulin ([facility]) - Wound dehiscence over previous left TMA site. ESR, CRP normal. WBC wnl. Afebrile. No acute infection. Not on abx - podiatry saw - vascular following - MRI L foot 7/18 with mild marrow edema of metatarsal distal stump margins without evidence of osteomyelitis - Angiogram performed, minimal blood flow past the knee, recommended AKA - s/p AKA 8/8 - pain difficult to control with PO meds and recent encephalopathy, adjusting meds on real time basis * Trino Montiel MD - 06/07/2025 12:27 PM EDTAssociated Problem(s): S/P transmetatarsal amputation of foot, left (HCC) - Wound dehiscence over previous left TMA site. ESR, CRP normal. WBC wnl. Afebrile. No acute infection. Not on abx - podiatry saw - vascular following - MRI L foot 7/18 with mild marrow edema of metatarsal distal stump margins without evidence of osteomyelitis - Angiogram performed, minimal blood flow past the knee, recommended AKA - s/p AKA 05/24 - pain difficult to control with PO meds and recent encephalopathy, adjusting meds on real time basis * Trino Montiel MD - 06/07/2025 12:27 PM EDTAssociated Problem(s): 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 Asa , statin and renexa * Trino Montiel MD - 06/07/2025 12:27 PM EDTAssociated Problem(s): Paroxysmal atrial fibrillation (HCC) - 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 - had been holding coreg for lower BPs - restart now with hold parameters as BP increased * Trino Montiel MD - 06/07/2025 12:27 PM EDTAssociated Problem(s): Acute on chronic heart failure with preserved ejection fraction (HCC) - 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 - had been holding coreg for lower BPs - restart now with hold parameters as BP increased * Trino Montiel MD - 06/07/2025 12:27 PM EDTAssociated Problem(s): Hypertension associated with diabetes (HCC) - A1c 5.3 - diet controlled - not following FSBS * Trino Montiel MD - 06/07/2025 12:27 PM EDTAssociated Problem(s): PAD (peripheral artery disease) - vascular following - severe disease - AKA as above * Trino Montiel MD - 06/07/2025 12:27 PM EDTAssociated Problem(s): Stage 3a chronic kidney disease (HCC) - A1c 5.3 - diet controlled - not following FSBS * Trino Montiel MD - 06/07/2025 12:27 PM EDTAssociated Problem(s): Anemia in other chronic diseases classified elsewhere - A1c 5.3 - diet controlled - not following FSBS * Trino Montiel MD - 06/07/2025 12:27 PM EDTAssociated Problem(s): Acute respiratory failure with hypoxemia (HCC) - transferred to MICU 05/26 with hypotension and hypoxia - pulm edema on cxr - echo with EF 55-60%, indeterminate diastolic function, pulm pressure 41 mmHg - diuresis * Trino Montiel MD - 06/07/2025 12:27 PM EDTAssociated Problem(s): Acute pulmonary edema (HCC) - transferred to MICU 05/26 with hypotension and hypoxia - pulm edema on cxr - echo with EF 55-60%, indeterminate diastolic function, pulm pressure 41 mmHg - diuresis * Trino Montiel MD - 06/07/2025 12:27 PM EDTAssociated Problem(s): Metabolic encephalopathy resolved * Trino Montiel MD - 06/07/2025 12:27 PM EDTAssociated Problem(s): Acute cystitis without hematuria - ESBL producing proteus on cx. Completed zosyn * Trino Montiel MD - 06/07/2025 12:23 PM EDT PROGRESS NOTE Assessment & Plan Diabetic foot infection (HCC) Type 2 diabetes mellitus, without long-term current use of insulin ([facility]) S/P transmetatarsal amputation of foot, left (HCC) - Wound dehiscence over previous left TMA site. ESR, CRP normal. WBC wnl. Afebrile. No acute infection. Not on abx - podiatry saw - vascular following - MRI L foot 05/03 with mild marrow edema of metatarsal distal stump margins without evidence of osteomyelitis - Angiogram performed, minimal blood flow past the knee, recommended AKA - s/p AKA 05/24 - pain difficult to control with PO meds and recent encephalopathy, adjusting meds on real time basis 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 Asa , statin and renexa Paroxysmal atrial fibrillation (HCC) Acute on chronic heart failure with preserved ejection fraction (HCC) - 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 - had been holding coreg for lower BPs - restart now with hold parameters as BP increased Hypertension associated with diabetes (HCC) - A1c 5.3 - diet controlled - not following FSBS PAD (peripheral artery disease) - vascular following - severe disease - AKA as above Stage 3a chronic kidney disease (HCC) Anemia in other chronic diseases classified elsewhere - A1c 5.3 - diet controlled - not following FSBS Hyponatremia Critical limb ischemia of left lower extremity (HCC) Wound dehiscence Palliative care by specialist Goals of care, counseling/discussion Pancytopenia (HCC) Acute respiratory failure with hypoxemia (HCC) Acute pulmonary edema (HCC) - transferred to MICU 05/26 with hypotension and hypoxia - pulm edema on cxr - echo with EF 55-60%, indeterminate diastolic function, pulm pressure 41 mmHg - diuresis Hypotension Metabolic encephalopathy resolved Acute cystitis without hematuria - ESBL producing proteus on cx. Completed zosyn Assessment/Plan: Mild non disabling hallucinations at night In AM was better again Slept fair CC told that accepting facility wants to monitor hallucinations in house Continue pain control for now and continue tryptalline as well Sodium is also stable Decrease narcs for now and see Dispo: When bed available VTE Prophylaxis: Active Hospital Problems Diagnosis *Diabetic foot infection (HCC) Acute cystitis without hematuria Metabolic encephalopathy Acute respiratory failure with hypoxemia (HCC) Acute pulmonary edema (HCC) Hypotension Pancytopenia (HCC) Palliative care by specialist Goals of care, counseling/discussion Wound dehiscence S/P transmetatarsal amputation of foot, left (HCC) Critical limb ischemia of left lower extremity (HCC) Stage 3a chronic kidney disease (HCC) Anemia in other chronic diseases classified elsewhere Hyponatremia PAD (peripheral artery disease) Acute on chronic heart failure with preserved ejection fraction (HCC) Paroxysmal atrial fibrillation (HCC) 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 Type 2 diabetes mellitus, without long-term current use of insulin (HCC) Hypertension associated with diabetes (HCC) Subjective: Slept fair Pain better SOB better Unsure what happened last night per pt Objective: BP 104/60 (BP Location: Left arm, Patient Position: Semi Fowlers) Pulse 83 Temp 97.5 ??F (36.4 ??C) (Oral) Resp 16 Ht 5' 2 (1.575 m) Wt 123 lb 3.8 oz (55.9 kg) SpO2 94% BMI 22.54 kg/m?? I/O last 3 completed shifts: In: 700 [P.O.:700] Out: 625 [Urine:625] Weight: 123 lb 3.8 oz (55.9 kg) GEN: NAD, comfortable and anxiety improving HEENT: NCAT, EOMI RESP: CTAB, no w/r/r , mild crackles on left side improved CVS: RRR, No GRM ABD: soft, NT, ND, +BS, no r/g/r EXT: no pedal edema on RLE, left AKA NEURO: non-focal, CN grossly intact, AAO, did not know about hallucinations last night ( clearly documented by RN and informed me yesterday) SKIN: warm and dry, no cyanosis Labs: Laboratory data and diagnostic testing reviewed 06/07/25. Trino Montiel MD 06/07/2025 12:27 PM * Yvonne Burdick RN - 06/07/2025 11:33 AM EDT 06/07/25 1130 Assessment Complete Actual Discharge Plan 06/07/25: CC Update, spoke with son on phone, met with [facility] liaison, noted hallucianations last jhony, facility would like to monitor prior to acceptance, nursing and MD updated, s/p AKA, will need ambulance transport, sister out of town, requests call when pt d/c, post acute form completed, CC following. Completed by CC/SW Yes Addendum, sister updated by phone. * Binta Mcdowell, MAHENDRA - 06/07/2025 2:26 AM EDT pt is alert and oriented x3 confused about situation Patient is A-FIB , VSS patient on RA complaints of pain treated with scheduled and PRN meds Iv normal saline locked flushed well Skin accessed no new issues seen Pt turned q2 hr patient up x2 BKA site C/D/I patient updated on status call light within reach, alarm in place encouraged to call for help * Rhina Weston RN - 06/06/2025 6:38 PM EDT Pt a/o x3, drowsy throughout the day. VSS, Afib on monitor, rate controlled. 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 Hypoactive bowel sounds. Skin assessed, ST to L FA, mepilex foam in place. Coccyx/bilateral buttocks red but blanchable, zinc cream applied. MASD noted to gluteal split, left JACKIE. Inner ana area/labia with redness, powder ordered. Pt using bedpan. Pt updated on plan of care, still waiting on bed at [facility]. Alarm in place, call light within reach, encouraged pt to call out for any needs/assistance. Pt's niece is at bedside and concerned about patient seeing things. When this RN was in room, patient was seeing water drip down the wall and spiders and leaves on her bed. Dr. Montiel. notified. Rhina Burkett RN * Yvonne Burdick RN - 06/06/2025 4:48 PM EDT 06/06/25 1647 Assessment Complete Actual Discharge Plan 06/06/25: CC Update, no bed at [facility] this date, post acute form completed, s/p AKA, will need ambulance transport, sister out of town, requests call when pt d/c, CC following. * Trino Montiel MD - 06/06/2025 3:47 PM EDTAssociated Problem(s): Diabetic foot infection (HCC) - Wound dehiscence over previous left TMA site. ESR, CRP normal. WBC wnl. Afebrile. No acute infection. Not on abx - podiatry saw - vascular following - MRI L foot 05/03 with mild marrow edema of metatarsal distal stump margins without evidence of osteomyelitis - Angiogram performed, minimal blood flow past the knee, recommended AKA - s/p AKA 05/24 - pain difficult to control with PO meds and recent encephalopathy, adjusting meds on real time basis * Trino Montiel MD - 06/06/2025 3:47 PM EDTAssociated Problem(s): Type 2 diabetes mellitus, without long-term current use of insulin (HCC) - Wound dehiscence over previous left TMA site. ESR, CRP normal. WBC wnl. Afebrile. No acute infection. Not on abx - podiatry saw - vascular following - MRI L foot 7/18 with mild marrow edema of metatarsal distal stump margins without evidence of osteomyelitis - Angiogram performed, minimal blood flow past the knee, recommended AKA - s/p AKA 8/8 - pain difficult to control with PO meds and recent encephalopathy, adjusting meds on real time basis * Trino Montiel MD - 06/06/2025 3:47 PM EDTAssociated Problem(s): S/P transmetatarsal amputation of foot, left (HCC) - Wound dehiscence over previous left TMA site. ESR, CRP normal. WBC wnl. Afebrile. No acute infection. Not on abx - podiatry saw - vascular following - MRI L foot 7/18 with mild marrow edema of metatarsal distal stump margins without evidence of osteomyelitis - Angiogram performed, minimal blood flow past the knee, recommended AKA - s/p AKA 8/8 - pain difficult to control with PO meds and recent encephalopathy, adjusting meds on real time basis * Trino Montiel MD - 06/06/2025 3:47 PM EDTAssociated Problem(s): 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 Asa , statin and renexa * Trino Montiel MD - 06/06/2025 3:47 PM EDTAssociated Problem(s): Paroxysmal atrial fibrillation (HCC) - 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 - had been holding coreg for lower BPs - restart now with hold parameters as BP increased * Trino Montiel MD - 06/06/2025 3:47 PM EDTAssociated Problem(s): Acute on chronic heart failure with preserved ejection fraction (HCC) - 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 - had been holding coreg for lower BPs - restart now with hold parameters as BP increased * Trino Montiel MD - 06/06/2025 3:47 PM EDTAssociated Problem(s): Hypertension associated with diabetes (HCC) - A1c 5.3 - diet controlled - not following FSBS * Trino Montiel MD - 06/06/2025 3:47 PM EDTAssociated Problem(s): PAD (peripheral artery disease) - vascular following - severe disease - AKA as above * Trino Montiel MD - 06/06/2025 3:47 PM EDTAssociated Problem(s): Stage 3a chronic kidney disease (HCC) - A1c 5.3 - diet controlled - not following FSBS * Trino Montiel MD - 06/06/2025 3:47 PM EDTAssociated Problem(s): Anemia in other chronic diseases classified elsewhere - A1c 5.3 - diet controlled - not following FSBS * Trino Montiel MD - 06/06/2025 3:47 PM EDTAssociated Problem(s): Acute respiratory failure with hypoxemia (HCC) - transferred to MICU 05/26 with hypotension and hypoxia - pulm edema on cxr - echo with EF 55-60%, indeterminate diastolic function, pulm pressure 41 mmHg - diuresis * Trino Montiel MD - 06/06/2025 3:47 PM EDTAssociated Problem(s): Acute pulmonary edema (HCC) - transferred to MICU 05/26 with hypotension and hypoxia - pulm edema on cxr - echo with EF 55-60%, indeterminate diastolic function, pulm pressure 41 mmHg - diuresis * Trino Montiel MD - 06/06/2025 3:47 PM EDTAssociated Problem(s): Metabolic encephalopathy resolved * Trino Montiel MD - 06/06/2025 3:47 PM EDTAssociated Problem(s): Acute cystitis without hematuria - ESBL producing proteus on cx. Completed zosyn * Trino Montiel MD - 06/06/2025 3:45 PM EDT PROGRESS NOTE Assessment & Plan Diabetic foot infection (HCC) Type 2 diabetes mellitus, without long-term current use of insulin (HCC) S/P transmetatarsal amputation of foot, left (HCC) - Wound dehiscence over previous left TMA site. ESR, CRP normal. WBC wnl. Afebrile. No acute infection. Not on abx - podiatry saw - vascular following - MRI L foot 05/03 with mild marrow edema of metatarsal distal stump margins without evidence of osteomyelitis - Angiogram performed, minimal blood flow past the knee, recommended AKA - s/p AKA 05/24 - pain difficult to control with PO meds and recent encephalopathy, adjusting meds on real time basis 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 Asa , statin and renexa Paroxysmal atrial fibrillation (HCC) Acute on chronic heart failure with preserved ejection fraction (HCC) - 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 - had been holding coreg for lower BPs - restart now with hold parameters as BP increased Hypertension associated with diabetes (HCC) - A1c 5.3 - diet controlled - not following FSBS PAD (peripheral artery disease) - vascular following - severe disease - AKA as above Stage 3a chronic kidney disease (HCC) Anemia in other chronic diseases classified elsewhere - A1c 5.3 - diet controlled - not following FSBS Hyponatremia Critical limb ischemia of left lower extremity (HCC) Wound dehiscence Palliative care by specialist Goals of care, counseling/discussion Pancytopenia (HCC) Acute respiratory failure with hypoxemia (HCC) Acute pulmonary edema (HCC) - transferred to MICU 05/26 with hypotension and hypoxia - pulm edema on cxr - echo with EF 55-60%, indeterminate diastolic function, pulm pressure 41 mmHg - diuresis Hypotension Metabolic encephalopathy resolved Acute cystitis without hematuria - ESBL producing proteus on cx. Completed zosyn Assessment/Plan: Doing fair Pain better Tolerated tryptalline fair Labs in AM SOB better Dispo: When bed available VTE Prophylaxis: PHARM VTE PROPH NON-CANDIDATE Active Hospital Problems Diagnosis *Diabetic foot infection (HCC) Acute cystitis without hematuria Metabolic encephalopathy Acute respiratory failure with hypoxemia (HCC) Acute pulmonary edema (HCC) Hypotension Pancytopenia (HCC) Palliative care by specialist Goals of care, counseling/discussion Wound dehiscence S/P transmetatarsal amputation of foot, left (HCC) Critical limb ischemia of left lower extremity (HCC) Stage 3a chronic kidney disease (HCC) Anemia in other chronic diseases classified elsewhere Hyponatremia PAD (peripheral artery disease) Acute on chronic heart failure with preserved ejection fraction (HCC) Paroxysmal atrial fibrillation (HCC) 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 Type 2 diabetes mellitus, without long-term current use of insulin (HCC) Hypertension associated with diabetes (HCC) Subjective: Feels overall better SOB better Pain better as well but hurts at times Not as bad as before DW CC Objective: BP 117/72 (BP Location: Left arm, Patient Position: Lying right side) Pulse 81 Temp 97.7 ??F (36.5 ??C) (Oral) Resp 18 Ht 5' 2 (1.575 m) Wt 127 lb 6.8 oz (57.8 kg) SpO2 93% BMI 23.31 kg/m?? I/O last 3 completed shifts: In: 650 [P.O.:650] Out: 825 [Urine:825] Weight: 127 lb 6.8 oz (57.8 kg) GEN: NAD, comfortable and anxiety better HEENT: NCAT, EOMI RESP: CTAB, no w/r/r , mild crackles on left side improving CVS: RRR, No GRM ABD: soft, NT, ND, +BS, no r/g/r EXT: no pedal edema on RLE, left AKA NEURO: non-focal, CN grossly intact, AAO SKIN: warm and dry, no cyanosis Labs: Laboratory data and diagnostic testing reviewed 06/06/25. Trino Montiel MD 06/06/2025 3:46 PM * Samia Golden RN - 06/06/2025 5:10 AM EDT Patient is alert and oriented x3. VSS. Afebrile. O2 sats >90% on RA. Afib controlled on monitor. No c/o pain. Lung sounds diminished. Skin assessed, no new issues noted. L AKA surgical incision JACKIE with noelle. PIV site c/d/I, no complications. Patient is turned q2 hours to prevent breakdown. Wound care protocol followed. Patient updated with plan of care. Bed alarm activated, call light within reach, bed in lowest position and non skid socks on. Patient is encouraged to reach out if assistance is needed. * Yvonne Burdick RN - 06/05/2025 2:58 PM EDT 06/05/25 1456 Assessment Complete Actual Discharge Plan 06/05/25: CC Update, met with pt, sister and brother in law in room, spoke with son on phone, no bed at [facility] this date, optimizing pain meds, post acute form completed, s/p AKA, will need ambulance transport, sister going out of town, requests call when pt d/c, CC following. Completed by CC/SW Yes * Samia Ortega, OT - 06/05/2025 2:08 PM EDT 06/05/25 1138 OT Subjective Note Type Treatment/Progress Patient Room/Unit 5425 OT Subjective Comments #1 Pt agreeable to OT tx with encouragement Others Present/Assisting MIKE Shipman / MAHENDRA Ernstcad drafter Information This progress note will serve as the discharge summary if no further therapy is provided prior to the patient being discharged from the hospital. Admitting Diagnosis pt is an 84 y.o. F admitted 04/30 for diabetic foot infection Clinical Course 05/24 L AKA 05/26 tx to MICU d/t hypotension. pal care c/s 05/28 Tx 5D, code CP -> PE ruled out 05/29 d/c CERTIFIED CREDIT COUNSELOR 06/05 Awaiting bed at [facility] Precautions Therapy Precautions Yes Weight Bearing Status Left lower extremity;Non-weight bearing Precaution Info Given Yes;Contact;To use call light to request assistance with all mobility Additional Comments ESBL Cognition Orientation Intact Arousal Normal Safety Awareness Normal Safety Awareness Impairment Minimal Impairments: Needs up to 25% input/direction from therapist in order to identify safety issues and maintain safety. Affect/Ability to cope Impaired Affect/Ability to cope impairment Anxious;Distracted Command Following Impaired Command following impairment Minimal Impairments: Needs up to 25% input/direction from therapist inorder to follow single step commands. Memory Impaired Memory impairment Poor short term memory Communication Intact Pain Screening PT/OT Patient Currently in Pain Yes Pain Rating 9 Pain Location Leg Pain Orientation Left Pain Intervention(s) Medication (see eMar);Repositioned;Ambulation/Increased activity;Emotional support Additional Comments RN in room during session Observation Presentation Patient resting in bed Observation Telemetry;Bed alarm Vitals VSS on RA ADL Interventions Where Assessed Edge of bed;Chair Grooming Assistance Hair care;Washing face;Stand by;Moderate (ModA/Hair care for detangling SBA for washing face seated) LE Dressing Assistance Total;Don/doff R sock Toileting Total;Anterior ana care (Pt refused pivot to commode this date despite encouragement, pt seated at bedpan on EOB) Bed Mobility Rolling Minimal assistance Supine to Sit Moderate assistance;Head of bed slightly elevated;With bed rails Transfers Sit to Stand Moderate assistance;With verbal cues;With 2 people Stand to Sit Moderate assistance;With verbal cues;With 2 people Stand Pivot Transfers Moderate assistance;With cues;With 2 people OT Gait Gait Non-ambulatory at this time Balance Sitting Balance 2+/5 supports self with 1 UE Standing Balance 1/5 performs 25-50% (moderate assistance) PT/OT Mobility Documentation PT/OT Mobility Score 4 Activity Tolerance Endurance Limits participation and activity Functional Status Score (FSS-ICU) Is the patient currently in ICU? No AM PAC: How much help from another person does the patient currently need... putting on and taking off regular lower body clothing? 1 bathing (including washing, rinsing, drying)? 2 toileting, which includes using toilet, bedpan or urinal? 1 putting on and taking off regular upper body clothing? 3 taking care of personal grooming such as brushing teeth? 3 eating meals? 3 AM PAC DAILY ACTIVITY SCORING Daily Activity Raw Score 13 AM PAC Daily Activity CMS 0-100% Functional Percentage 63.03 AM PAC Daily Activity CMS G Code Modifier CL Education Education To use call light to request assistance with all mobility;Patient/Family Education;Role of Therapy;Safety with mobility;Cues for proper technique;Up with assistance only;Safe and proper post ure/positioning;Safe and proper technique with transfers;Educated on benefits of mobility, upright positioning, and getting out of bed Patient Safety Patient left in chair with needs in reach;Chair/personal alarm activated;Nursing notified of status Assessment Assessment Decreased ADL status;Decreased UE ROM;Decreased UE strength;Decreased endurance;Decreased self-care transfers;Decreased high-level ADLs Prognosis Good;With continued OT s/p acute discharge Progress Slow progress toward goals Rationale for Skilled Therapy Fall Risk;Balance Deficits;Not safe with independent transfers;Not safe ambulating independently;Needs verbal/tactile cues for ADL's;Needs physical cues for ADL's;Requires physical assistance with ADLs;Needs intensive therapy;Requires multi-disciplinary team;Able to make measurable improvements;Decreased endurance and tolerance to activity ADL Goals Pt Will Perform Upper Body Grooming Not met;Supervision;In chair Pt Will Perform Upper Body Bathing With setup;Not met Pt Will Perform Lower Body Bathing Minimal assistance;Not met Pt Will Perform LE Dressing Minimal assistance;Not met Pt Will Perform Toileting Minimal assistance;Not met Functional Transfer Goals Pt Will Perform All Functional Transfers Contact guardance;Not met Arm Goals Pt will complete HEP Supervision;Not Addressed Plan Treatment Interventions ADL retraining;Functional transfer training;UE strengthening/ROM;Endurance training;Patient/Family training;Equipment eval/education;Compensatory technique education;Co-treatment with Physical Therapy OT Frequency 2-5x/wk Recommendation OT Recommendation High frequency, high intensity multi-disciplinary therapy for 15 hours per week. Time In / Time Out [id number] (23 minutes) IP OT Individual Treatment Minutes 23 The total time spent caring for this patient included but was not limited to hands-on treatment;medical record review;communication and education with patient and/or family/caregiver;clinical judgement necessary for treatment planning for next session;communication with nursing and/or care coordinat ion/social work regarding patient status and discharge planning * Ramonita Jean PTA - 06/05/2025 1:56 PM EDT 06/05/25 1105 PT Subjective Note Type Treatment/Progress Patient Room/Unit 5425 PT Subjective Comments #1 agrees Others Present/Assisting FLORESITA CHILDRESS Discharge Information This progress note will serve as the discharge summary if no further therapy is provided prior to the patient being discharged from the hospital. Admitting Diagnosis pt is an 84 y.o. F admitted 04/30 for diabetic foot infection Clinical Course 05/24 L AKA 05/26 tx to MICU d/t hypotension. pal care c/s 05/28 Tx 5D, code CP -> PE ruled out 05/29 d/c CERTIFIED CREDIT COUNSELOR Pain Screening PT/OT Patient Currently in Pain Yes Pain Rating 9 Pain Location Leg Pain Orientation Left Pain Intervention(s) Medication (see eMar);Repositioned;Ambulation/Increased activity;Emotional support Additional Comments RN in room during session Cognition Orientation Intact Arousal Normal Safety Awareness Normal Safety Awareness Impairment Minimal Impairments: Needs up to 25% input/direction from therapist in order to identify safety issues and maintain safety. Affect/Ability to cope Impaired Affect/Ability to cope impairment Anxious;Distracted;Flat Command Following Impaired Command following impairment Minimal Impairments: Needs up to 25% input/direction from therapist inorder to follow single step commands. Memory Impaired Memory impairment Poor short term memory Communication Intact Vision reports poor vision Precautions Therapy Precautions Yes Weight Bearing Status Left lower extremity;Non-weight bearing Precaution Info Given Yes;Contact;To use call light to request assistance with all mobility Other precautions new L AKA, anxious Additional Comments ESBL Activity Tolerance Endurance Limits participation and activity Observation Presentation Patient resting in bed Posture HOB elevated Observation Telemetry;Bed alarm Vitals VSS on RA Bed Mobility Rolling Minimal assistance Supine to Sit Moderate assistance;Head of bed slightly elevated;With bed rails Additional Comments patient sitting EOB ~ 10 min with CGA Transfers Sit to Stand Moderate assistance;With verbal cues;With 2 people Stand to Sit Moderate assistance;With verbal cues;With 2 people Stand Pivot Transfers Moderate assistance;With cues;With 2 people Additional Comments patient stood to RW for personal care ~ 1 min, patient then able to pivot to chair Gait Gait Non-ambulatory at this time Functional Status Score (FSS-ICU) Is the patient currently in ICU? No PT/OT Mobility Documentation PT/OT Mobility Score 4 AM PAC: How much help from another person does the patient currently need... turning from your back to your side while in a flat bed without using bedrails? 3 moving from lying on your back to sitting on the side of a flat bed without using bedrails? 2 moving to and from a bed to a chair? 2 standing up from a chair using your arms (e.g. wheelchair, or bedside chair)? 2 need to walk in hospital room? 1 climbing 3-5 steps with a railing? 1 AM PAC: BASIC MOBILITY SCORING AM PAC Moblity Raw Score 11 AM PAC Mobility CMS 0-100% Functional Percentage 66.76 AM PAC Mobility CMS G Code Modifier CL Balance Sitting Balance 2+/5 supports self with 1 UE Standing Balance 1/5 performs 25-50% (moderate assistance) Education Education To use call light to request assistance with all mobility;Safety with mobility;Cues for proper technique;Up with assistance only Patient Safety Patient Safety Patient left in chair with needs in reach;Nursing notified of status;Chair/personal alarm activated Assessment Progress Slow progress toward goals (limited by pain left residual LE) Rationale for Skilled Therapy Able to make measurable improvements;Requires multi-disciplinary team;Needs intensive therapy;Requires physical assistance with ADLs;Not independent with home exercise program;Needs physical cues for ADL's;Decreased endurance and tolerance to activity;Fall Risk;Balance Deficits;Not safe with independent transfers;Not safe ambulating independently Goals Will Perform Supine To Sit With minimal assist;Not met Will Perform Sit to Supine With minimal assist;Not met Will Perform Sit to Stand With minimal assist;With assist of 2;Not met Will Transfer Bed/Chair With minimal assist;With assist of 2;Not met Will Ambulate With 2 wheel walker;1-10 feet;With moderate assist;Not assessed Time for Goal Achievement/Duration of Treatment 06/10 Plan Treatment/Interventions Continue with current plan of care PT Frequency 3-5x/week Recommendation PT Recommendation High frequency, high intensity multi-disciplinary therapy for 15 hours per week. Time In / Time Out [id number] ([id number]) IP PT Treatment Minutes 23 The total time spent caring for this patient included but was not limited to communication with nursing and/or care coordination/social work regarding patient status and discharge planning;assessmentof the patient's progress since the last session;communication and education with patient and/or fam timoteo/caregiver;hands-on treatment;medical record review * Robby Thomas MD - 06/05/2025 1:38 PM EDT Palliative Care Progress Note Consult Location: [facility] Length of Stay: 35 Assessment: Skyler Bautista is a 84 y.o. female with hx of PVD who presented to ER with dehiscence of L TMA. Initial surgery on 03/09 and revision on 03/18 and presented with discussion of L AKA. Ultimately, patient had L AKA on 05/24. Our team has been following for ongoing goals of care and support. Patient is now post surgery and has had some complications although is slowly improving. She was transferred to [facility] from ICU last week. Decisional Capacity:Fully Decisional Based on determination of decisional capacity, health care surrogateagent: Inactive Advance Directive Document: No documents present in chart, education provided, documents pending Name (s): Adult children--two sons Additional information: Surrogate by: SUMEET Palliative Plan of Care: 05/27----Met with patient and her son Edgar and Jo Ann as well as sister Sarah and her Gerry. Discussed that current goals are restorative. We discussed her transfer to ICU and what ifs . Wediscussed code status extensively and what it would mean in the context of her medical situation. Ul nielsately, patient and family agree to DNR/DNI. She has had experience around code situation with her who was resuscitated and had to be removed from life support. Code status is changed to DNR/DNI. Pain secondary to Left AKA---being managed by primary team. Likely phantom pain as well. Patient ongabapentin 300 tid and nortriptyline as well as oxycodone Will sign off for now. Patient is slowly improving. Subjective: patient reports pain is more manageable, no other complaints now Objective: Vitals: Vitals: 06/05/25 1317 BP: Pulse: 85 Resp: Temp: SpO2: Physical Exam: alert, comfortable appearing Medically Ready for discharge per Palliative Care Standpoint?: Yes Will follow-up in clinic?: No Medication recommendations?: no Prescribing Care team at discharge?: no Will sign off?: Yes Collaborated with hospitalist team Thank you for the opportunity to participate in the care of this patient. We will follow along withyou. Please contact the palliative care service team with questions or concerns. ROBBY THOMAS MD - Palliative Care Services Time-Based Billing Statement I spent 26 minutes in the care of this patient on this calendar day. Activities performed during this time include: Counseling and educating, Referring and communicating with another professional, Documenting clinical information in the EHR, and Care coordination The total time documented above did not include the following activities which were also performed on this calendar day: Advance Care Planning * Trino Montiel MD - 06/05/2025 12:46 PM EDTAssociated Problem(s): Diabetic foot infection (HCC) - Wound dehiscence over previous left TMA site. ESR, CRP normal. WBC wnl. Afebrile. No acute infection. Not on abx - podiatry saw - vascular following - MRI L foot 7/18 with mild marrow edema of metatarsal distal stump margins without evidence of osteomyelitis - Angiogram performed, minimal blood flow past the knee, recommended AKA - s/p AKA 8/8 - pain difficult to control with PO meds and recent encephalopathy, adjusting meds on real time basis * Trino Montiel MD - 06/05/2025 12:46 PM EDTAssociated Problem(s): Type 2 diabetes mellitus, without long-term current use of insulin (HCC) - Wound dehiscence over previous left TMA site. ESR, CRP normal. WBC wnl. Afebrile. No acute infection. Not on abx - podiatry saw - vascular following - MRI L foot 7/18 with mild marrow edema of metatarsal distal stump margins without evidence of osteomyelitis - Angiogram performed, minimal blood flow past the knee, recommended AKA - s/p AKA 8/8 - pain difficult to control with PO meds and recent encephalopathy, adjusting meds on real time basis * Trino Montiel MD - 06/05/2025 12:46 PM EDTAssociated Problem(s): S/P transmetatarsal amputation of foot, left (HCC) - Wound dehiscence over previous left TMA site. ESR, CRP normal. WBC wnl. Afebrile. No acute infection. Not on abx - podiatry saw - vascular following - MRI L foot 05/03 with mild marrow edema of metatarsal distal stump margins without evidence of osteomyelitis - Angiogram performed, minimal blood flow past the knee, recommended AKA - s/p AKA 05/24 - pain difficult to control with PO meds and recent encephalopathy, adjusting meds on real time basis * Trino Montiel MD - 06/05/2025 12:46 PM EDTAssociated Problem(s): 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 Asa , statin and renexa * Trino Montiel MD - 06/05/2025 12:46 PM EDTAssociated Problem(s): Paroxysmal atrial fibrillation (HCC) - 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 - had been holding coreg for lower BPs - restart now with hold parameters as BP increased * Trino Montiel MD - 06/05/2025 12:46 PM EDTAssociated Problem(s): Acute on chronic heart failure with preserved ejection fraction (HCC) - 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 - had been holding coreg for lower BPs - restart now with hold parameters as BP increased * Trino Montiel MD - 06/05/2025 12:46 PM EDTAssociated Problem(s): Hypertension associated with diabetes (HCC) - A1c 5.3 - diet controlled - not following FSBS * Trino Montiel MD - 06/05/2025 12:46 PM EDTAssociated Problem(s): PAD (peripheral artery disease) - vascular following - severe disease - AKA as above * Trino Montiel MD - 06/05/2025 12:46 PM EDTAssociated Problem(s): Stage 3a chronic kidney disease (HCC) - A1c 5.3 - diet controlled - not following FSBS * Trino Montiel MD - 06/05/2025 12:46 PM EDTAssociated Problem(s): Anemia in other chronic diseases classified elsewhere - A1c 5.3 - diet controlled - not following FSBS * Trino Montiel MD - 06/05/2025 12:46 PM EDTAssociated Problem(s): Acute respiratory failure with hypoxemia (HCC) - transferred to MICU 05/26 with hypotension and hypoxia - pulm edema on cxr - echo with EF 55-60%, indeterminate diastolic function, pulm pressure 41 mmHg - diuresis * Trino Montiel MD - 06/05/2025 12:46 PM EDTAssociated Problem(s): Acute pulmonary edema (HCC) - transferred to MICU 05/26 with hypotension and hypoxia - pulm edema on cxr - echo with EF 55-60%, indeterminate diastolic function, pulm pressure 41 mmHg - diuresis * Trino Montiel MD - 06/05/2025 12:46 PM EDTAssociated Problem(s): Metabolic encephalopathy resolved * Trino Montiel MD - 06/05/2025 12:46 PM EDTAssociated Problem(s): Acute cystitis without hematuria - ESBL producing proteus on cx. Completed zosyn * Trino Montiel MD - 06/05/2025 12:36 PM EDT PROGRESS NOTE Assessment & Plan Diabetic foot infection (HCC) Type 2 diabetes mellitus, without long-term current use of insulin ([facility]) S/P transmetatarsal amputation of foot, left (HCC) - Wound dehiscence over previous left TMA site. ESR, CRP normal. WBC wnl. Afebrile. No acute infection. Not on abx - podiatry saw - vascular following - MRI L foot 05/03 with mild marrow edema of metatarsal distal stump margins without evidence of osteomyelitis - Angiogram performed, minimal blood flow past the knee, recommended AKA - s/p AKA 05/24 - pain difficult to control with PO meds and recent encephalopathy, adjusting meds on real time basis 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 Asa , statin and renexa Paroxysmal atrial fibrillation (HCC) Acute on chronic heart failure with preserved ejection fraction (HCC) - 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 - had been holding coreg for lower BPs - restart now with hold parameters as BP increased Hypertension associated with diabetes ([facility]) - A1c 5.3 - diet controlled - not following FSBS PAD (peripheral artery disease) - vascular following - severe disease - AKA as above Stage 3a chronic kidney disease (HCC) Anemia in other chronic diseases classified elsewhere - A1c 5.3 - diet controlled - not following FSBS Hyponatremia Critical limb ischemia of left lower extremity (HCC) Wound dehiscence Palliative care by specialist Goals of care, counseling/discussion Pancytopenia ([facility]) Acute respiratory failure with hypoxemia (HCC) Acute pulmonary edema (HCC) - transferred to MICU 05/26 with hypotension and hypoxia - pulm edema on cxr - echo with EF 55-60%, indeterminate diastolic function, pulm pressure 41 mmHg - diuresis Hypotension Metabolic encephalopathy resolved Acute cystitis without hematuria - ESBL producing proteus on cx. Completed zosyn Assessment/Plan: Add ATC lasix for now and may need prn at DC Xray noted with resolving fluid overload Discussed phantom pain likely and continue narcs for now along with neurontin Add low dose tryptalline and see if any relief with caution on elderly Avoid IV narcs as able Dispo: When bed available VTE Prophylaxis: Active Hospital Problems Diagnosis *Diabetic foot infection (HCC) Acute cystitis without hematuria Metabolic encephalopathy Acute respiratory failure with hypoxemia (HCC) Acute pulmonary edema (HCC) Hypotension Pancytopenia (HCC) Palliative care by specialist Goals of care, counseling/discussion Wound dehiscence S/P transmetatarsal amputation of foot, left (HCC) Critical limb ischemia of left lower extremity (HCC) Stage 3a chronic kidney disease (HCC) Anemia in other chronic diseases classified elsewhere Hyponatremia PAD (peripheral artery disease) Acute on chronic heart failure with preserved ejection fraction (HCC) Paroxysmal atrial fibrillation (HCC) 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 Type 2 diabetes mellitus, without long-term current use of insulin (HCC) Hypertension associated with diabetes (HCC) Subjective: Breathing better today Pain still present DW RN and care team PT ongoing Objective: BP 113/52 (BP Location: Right arm, Patient Position: Semi Fowlers) Pulse 87 Temp 98.2 ??F (36.8??C) (Oral) Resp 18 Ht 5' 2 (1.575 m) Wt 119 lb 11.4 oz (54.3 kg) SpO2 96% BMI 21.90 kg/m?? I/O last 3 completed shifts: In: 420 [P.O.:420] Out: - Weight: 119 lb 11.4 oz (54.3 kg) GEN: NAD, comfortable and anxiety mild HEENT: NCAT, EOMI RESP: CTAB, no w/r/r , mild crackles on left side better CVS: RRR, No GRM ABD: soft, NT, ND, +BS, no r/g/r EXT: no pedal edema on RLE, left AKA NEURO: non-focal, CN grossly intact, AAO SKIN: warm and dry, no cyanosis Labs: Laboratory data and diagnostic testing reviewed 06/05/25. Trino Montiel MD 06/05/2025 12:46 PM * Rhina Nunez RD,LD - 06/05/2025 11:29 AM EDT [facility] Nutrition Malnutrition Reassessment Evidence Supported Malnutrition Diagnosis: No malnutrition identified Nutrition Problem/Diagnosis: Nutrition Diagnosis Problem 1: Increased nutrient needs (specify) (kcal and pro) related to increased demand for energy/nutrients as evidenced by wounds. Status: Active nutrition diagnosis Nutrition Prescription: Kcals: 6382-9514 kcal (25-30 kcal/kg using 52.1 kg) Protein (g): 62-78 gm Protein needs based on: 1.2-1.5 gm/kg Fluid (ml): 1 mL/kcal Other (comment): Reviewed 06/05 Plan/Interventions: Meals and Snacks: Regular Medical Food Supplements: Glucerna Therapeutic Medical Food/Supplement Freq: 1xday - [place] Nutrition-Related Medication Management: Protonix Nutrition Education: Importance of nutrition to healing and recovery, Small frequent meals, Supplements Nutrition Discharge Instructions: Continue to eat foods high in protein. Continue to drink protein shakes 1-2x per day for additional protein. Skyler Bautista is a 84 y.o. female patient. Admit Diagnosis: Wound dehiscence [T81.30XA] Diabetic foot infection (HCC) [E11.628, L08.9] Subjective: Subjective Comment: Pt visited. Pt reported that she ate 100% of breakfast - 2 pancakes, 5 pieces of jacobs and coffee. Continued to encourage protein with meals to aid in overall healing. discussed ONS - pt stated that she has been drinking Glucerna every morning but isn't interested in Magic Cup, will d/c. Will continue to monitor and follow up PRN Anthropometric Measurements: Height: 5' 1 (154.9 cm) Weight: 119 lb 11.4 oz (54.3 kg) BMI (Calculated): 22.62 Does Patient Have An Amputation?: Yes Percent Amputation: 10.1 % Adjusted BMI: 24 BMI Assessment: 18.5-24.9 Normal Adjusted IBW +/- 10%: 99 lb (44.9 kg) Adjusted % IBW: 121 Other (Comment): Wts have fluctuated, +14L since admit Food/Nutrition Related History: Dietary Orders Ordered Regular Diet DIET EFFECTIVE NOW 05/24/25 1154 GLUCERNA Therapeutic oral supplement 1 'box' Oral Q AM 1 'box' at 05/31/25 0908 Magic Cup Dessert oral supplement 1 Each Oral Daily 1 Each at 05/29/25 1715 Food Insecurity Within the past 12 months, you worried that your food would run out before you got the money to buymore.: Never true Within the past 12 months, the food you bought just didn't last and you didn't have money to get more.: Never true % Avg Meals Consumed: 50 % (x7 meal average) Tube Feeding?: No TPN?: No Nutrition Focused Physical Findings: LDAs- Active NG/OG/NJ,Wound,Pressure Injury,or Drain Wound Duration Incision/Wound MASD Coccyx Mid gluteal split 29 days Incision/Wound Closed Surgical Leg Upper;Left 12 days Incision/Wound Skin tear Arm Right;Anterior;Upper open, moist, scant bloody draingage. 10 days Incision/Wound Skin tear Arm Left;Proximal 5 days I/O last 3 completed shifts: In: 420 [P.O.:420] Out: - Edema:Generalized Edema: None Facial Edema: None Sacral Edema: None Right Upper Extremity Edema: None Left Upper Extremity Edema: None Right Lower Extremity Edema: Trace Left Lower Extremity Edema: Trace Perineal Edema: None Abdomen: Abdominal/GI Abdomen Inspection: Non-distended, Soft Bowel Sounds (All Quadrants): Active Abdominal palpation: Soft, Nontender Nausea: No Constipation: No When was last BM? (Date): 06/05/25 Stool Assessment: Stool Occurrence: 1 Stool Appearance: Type 5 [place] Stool Chart Stool Color: Brown Stool Amount: Small Biochemical Data/Medical Tests: Pertinent Labs: Reviewed Clinical Course: Clinical Course: Admitted with L TMA dehiscence. 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 Transferred to MICU 05/26 d/t hypotension. CXR with pulmonary edema. Palliative care following. Wound Care noted. * Shonna Elkins RN - 06/05/2025 4:18 AM EDT Images from the original note were not included. Patient A&O x 4, VSS, afib on monitor. Room air, sats >90%, no c/o SOB. C/o surgical leg pain being managed with PRN morphine and scott, pain decreased on reassessments. Skin assessed, No new issues. Scattered bruising and abrasions, skin tear to L forearm, redness to left and right buttocks. Left AKA. Wound care protocol followed per orders. Patient assisted with turns q2 hours. PIV site c/d/i, no complications. Patient ambulating with Steady, tolerating well. Updated on POC. Bed alarm activated and call light w/in reach. Encouraged to call out as needed. * Sujata Brink RN - 06/04/2025 5:13 PM EDT Patient has rested quietly Alert and oriented. Morphine and Roxicodone given per prn orders for complaints of surgical pain. Left AKA incision open to the air with noelle. Patient up with assist x2 and the stedy. No new open areas assessed. SR on the monitor. BP stable. Sats >90% on room air. Patient afebrile. In Xray at this time. Will continue to monitor. Sujata Brink RN * Jennifer Lopez, PLEITEZ - 06/04/2025 2:27 PM EDT 06/04/25 1120 OT Subjective Note Type Treatment/Progress Patient Room/Unit 5425 OT Subjective Comments #1 Agreeable to OT/PT on second attempt. Discharge Information This progress note will serve as the discharge summary if no further therapy is provided prior to the patient being discharged from the hospital. Past Med Hx Afib, PAD, HFpEF, L TMA 03/2025, R femur fx 03/2024, CABG 05/2024, emphysema, DANTE, Afib Diagnostic Testing 05/26 CXR: Fluid overload or CHF with pulmonary edema and effusions. Clinical Course 05/24 L AKA 05/26 tx to MICU d/t hypotension. 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 Affect/Ability to cope Impaired Affect/Ability to cope impairment Distracted;Anxious;Tearful Command Following Impaired Command following impairment Minimal Impairments: Needs up to 25% input/direction from therapist inorder to follow single step commands. Memory Intact Communication Intact Vision Pt reported I can't see too much. Pt able to tell time from clock from chair. Pain Screening PT/OT Patient Currently in Pain Yes Pain Rating 10 Pain Location Leg Pain Orientation Left Pain Intervention(s) Emotional support;Repositioned;Massage Additional Comments Pt received pain meds 30 minutes before therapy. Pt still report high level of pain, tearful, familiar with concept of phantom pain. Observation Presentation Patient seated in chair Observation IV;Telemetry;Chair alarm Vitals VSS on RA Transfers Sit to Stand Moderate assistance;With 2 people;With verbal cues Stand to Sit Moderate assistance;With 2 people;With verbal cues Additional Comments Pt STS x 2 with bedrail and maintained standing for 45 sec x 2 needing ModAx2 Gait Gait Not performed Balance Sitting Balance 2/5 supports self independently with both UEs Standing Balance 0/5 performs 25% or less (maximum assistance) PT/OT Mobility Documentation PT/OT Mobility Score 4 ADL Interventions Where Assessed Chair Grooming Assistance Stand by;Set up;Washing hands;Washing face UE Bathing Assistance Stand by LE Bathing Assistance Maximal;Buttock;Ana area UE Dressing Assistance Minimal LE Dressing Assistance Total;Don/doff R shoe Interventions Balance Training fxl mobility, fxl reaching, dynamic standing/sitting balance Upper Extremity Exercise AROM AM PAC: How much help from another person does the patient currently need... putting on and taking off regular lower body clothing? 1 bathing (including washing, rinsing, drying)? 2 toileting, which includes using toilet, bedpan or urinal? 1 putting on and taking off regular upper body clothing? 3 taking care of personal grooming such as brushing teeth? 3 eating meals? 3 AM PAC DAILY ACTIVITY SCORING Daily Activity Raw Score 13 AM PAC Daily Activity CMS 0-100% Functional Percentage 63.03 AM PAC Daily Activity CMS G Code Modifier CL Education Education To use call light to request assistance with all mobility;Patient/Family Education;Role of Therapy;Safety with mobility;Cues for proper technique;Discharge planning;Up with assistance only;Precautions Patient Safety Patient left in chair with needs in reach;Chair/personal alarm activated;Nursing notified of status Recommendation OT Recommendation High frequency, high intensity multi-disciplinary therapy for 15 hours per week. Time In / Time Out [id number]; [id number] IP OT Individual Treatment Minutes 28 The total time spent caring for this patient included but was not limited to medical record review;hands-on treatment;communication and education with patient and/or family/caregiver * Trino Montiel MD - 06/04/2025 1:59 PM EDTAssociated Problem(s): Diabetic foot infection (HCC) - Wound dehiscence over previous left TMA site. ESR, CRP normal. WBC wnl. Afebrile. No acute infection. Not on abx - podiatry saw - vascular following - MRI L foot 05/03 with mild marrow edema of metatarsal distal stump margins without evidence of osteomyelitis - Angiogram performed, minimal blood flow past the knee, recommended AKA - s/p AKA 8/8 - pain controlled on oral meds * Trino Montiel MD - 06/04/2025 1:59 PM EDTAssociated Problem(s): Type 2 diabetes mellitus, without long-term current use of insulin (HCC) - Wound dehiscence over previous left TMA site. ESR, CRP normal. WBC wnl. Afebrile. No acute infection. Not on abx - podiatry saw - vascular following - MRI L foot 7/18 with mild marrow edema of metatarsal distal stump margins without evidence of osteomyelitis - Angiogram performed, minimal blood flow past the knee, recommended AKA - s/p AKA 8/8 - pain controlled on oral meds * Trino Montiel MD - 06/04/2025 1:59 PM EDTAssociated Problem(s): S/P transmetatarsal amputation of foot, left (HCC) - Wound dehiscence over previous left TMA site. ESR, CRP normal. WBC wnl. Afebrile. No acute infection. Not on abx - podiatry saw - vascular following - MRI L foot 7/18 with mild marrow edema of metatarsal distal stump margins without evidence of osteomyelitis - Angiogram performed, minimal blood flow past the knee, recommended AKA - s/p AKA 8/8 - pain controlled on oral meds * Trino Montiel MD - 06/04/2025 1:59 PM EDTAssociated Problem(s): 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 Asa , statin and renexa * Trino Montiel MD - 06/04/2025 1:59 PM EDTAssociated Problem(s): Paroxysmal atrial fibrillation (HCC) - 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 - had been holding coreg for lower BPs - restart now with hold parameters as BP increased * Trino Montiel MD - 06/04/2025 1:59 PM EDTAssociated Problem(s): Acute on chronic heart failure with preserved ejection fraction (HCC) - 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 - had been holding coreg for lower BPs - restart now with hold parameters as BP increased * Trino Montiel MD - 06/04/2025 1:59 PM EDTAssociated Problem(s): Hypertension associated with diabetes (HCC) - A1c 5.3 - diet controlled - not following FSBS * Trino Montiel MD - 06/04/2025 1:59 PM EDTAssociated Problem(s): PAD (peripheral artery disease) - vascular following - severe disease - AKA as above * Trino Montiel MD - 06/04/2025 1:59 PM EDTAssociated Problem(s): Stage 3a chronic kidney disease (HCC) - A1c 5.3 - diet controlled - not following FSBS * Trino Montiel MD - 06/04/2025 1:59 PM EDTAssociated Problem(s): Anemia in other chronic diseases classified elsewhere - A1c 5.3 - diet controlled - not following FSBS * Trino Montiel MD - 06/04/2025 1:59 PM EDTAssociated Problem(s): Acute respiratory failure with hypoxemia (HCC) - transferred to MICU 05/26 with hypotension and hypoxia - pulm edema on cxr - echo with EF 55-60%, indeterminate diastolic function, pulm pressure 41 mmHg - diuresis * Trino Montiel MD - 06/04/2025 1:59 PM EDTAssociated Problem(s): Acute pulmonary edema (HCC) - transferred to MICU 05/26 with hypotension and hypoxia - pulm edema on cxr - echo with EF 55-60%, indeterminate diastolic function, pulm pressure 41 mmHg - diuresis * Trino Montiel MD - 06/04/2025 1:59 PM EDTAssociated Problem(s): Metabolic encephalopathy resolved * Trino Montiel MD - 06/04/2025 1:59 PM EDTAssociated Problem(s): Acute cystitis without hematuria - ESBL producing proteus on cx. Completed zosyn * Trino Montiel MD - 06/04/2025 1:47 PM EDT Images from the original note were not included. PROGRESS NOTE Assessment & Plan Diabetic foot infection (HCC) Type 2 diabetes mellitus, without long-term current use of insulin (HCC) S/P transmetatarsal amputation of foot, left (HCC) - Wound dehiscence over previous left TMA site. ESR, CRP normal. WBC wnl. Afebrile. No acute infection. Not on abx - podiatry saw - vascular following - MRI L foot 05/03 with mild marrow edema of metatarsal distal stump margins without evidence of osteomyelitis - Angiogram performed, minimal blood flow past the knee, recommended AKA - s/p AKA 05/24 - pain controlled on oral meds 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 Asa , statin and renexa Paroxysmal atrial fibrillation (HCC) Acute on chronic heart failure with preserved ejection fraction (HCC) - 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 - had been holding coreg for lower BPs - restart now with hold parameters as BP increased Hypertension associated with diabetes (HCC) - A1c 5.3 - diet controlled - not following FSBS PAD (peripheral artery disease) - vascular following - severe disease - AKA as above Stage 3a chronic kidney disease (HCC) Anemia in other chronic diseases classified elsewhere - A1c 5.3 - diet controlled - not following FSBS Hyponatremia Critical limb ischemia of left lower extremity (HCC) Wound dehiscence Palliative care by specialist Goals of care, counseling/discussion Pancytopenia (HCC) Acute respiratory failure with hypoxemia (HCC) Acute pulmonary edema (HCC) - transferred to MICU 05/26 with hypotension and hypoxia - pulm edema on cxr - echo with EF 55-60%, indeterminate diastolic function, pulm pressure 41 mmHg - diuresis Hypotension Metabolic encephalopathy resolved Acute cystitis without hematuria - ESBL producing proteus on cx. Completed zosyn Assessment/Plan: Lasix again as SOB symptoms Anxiety playing role as well Oxygen is stable though HR fast at times Increase BB for now Get Xray Dispo: When workup complete VTE Prophylaxis: Active Hospital Problems Diagnosis *Diabetic foot infection (HCC) Acute cystitis without hematuria Metabolic encephalopathy Acute respiratory failure with hypoxemia (HCC) Acute pulmonary edema (HCC) Hypotension Pancytopenia (HCC) Palliative care by specialist Goals of care, counseling/discussion Wound dehiscence S/P transmetatarsal amputation of foot, left (HCC) Critical limb ischemia of left lower extremity (HCC) Stage 3a chronic kidney disease (HCC) Anemia in other chronic diseases classified elsewhere Hyponatremia PAD (peripheral artery disease) Acute on chronic heart failure with preserved ejection fraction (HCC) Paroxysmal atrial fibrillation (HCC) 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 Type 2 diabetes mellitus, without long-term current use of insulin (HCC) Hypertension associated with diabetes (HCC) Subjective: SOB at times Worried she might Feels fair overall Pain at times Objective: BP 122/47 (BP Location: Right arm, Patient Position: Sitting) Pulse 101 Temp 98.1 ??F (36.7 ??C) (Oral) Resp 18 Ht 5' 2 (1.575 m) Wt 126 lb 15.8 oz (57.6 kg) SpO2 97% BMI 23.23 kg/m?? I/O last 3 completed shifts: In: 267.8 [P.O.:240; I.V.:27.8] Out: 0 Weight: 126 lb 15.8 oz (57.6 kg) PE: GEN: NAD, comfortable and anxious some HEENT: NCAT, EOMI RESP: CTAB, no w/r/r , mild crackles on left side CVS: tachycardia , No GRM ABD: soft, NT, ND, +BS, no r/g/r EXT: no pedal edema on RLE, left AKA NEURO: non-focal, CN grossly intact, AAOx4 SKIN: warm and dry, no cyanosis Labs: Laboratory data and diagnostic testing reviewed 06/04/25. Trino Montiel MD 06/04/2025 1:47 PM * Yvonne Burdick RN - 06/04/2025 1:07 PM EDT 06/04/25 1300 Assessment Complete Actual Discharge Plan 06/04/25: CC Update, met with pt, pt reports still with pain, states nursing gave her meds previously, [facility] following for medical stability and bed availability, s/p AKA,will need ambulance transport, post acute form previously completed, CC following. * Shayy Hutton, PT - 06/04/2025 11:58 AM EDT 06/04/25 1301 PT Subjective Note Type Treatment/Progress Patient Room/Unit 5425 PT Subjective Comments #1 Patient reported nursing staff had just gotten her up to her chair. Agreeable to therapy with encouragement. Others Present/Assisting OT, Jennifer Discharge Information This progress note will serve as the discharge summary if no further therapy is provided prior to the patient being discharged from the hospital. Admitting Diagnosis pt is an 84 y.o. F admitted 04/30 for diabetic foot infection Past Med Hx a-fib, arthritis, CAD, CHF, DM, glaucoma, HTN, liver disease, PVD, CVA, L TMT (02/2025) Clinical Course 05/24 L AKA 05/26 tx to MICU d/t hypotension. 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 Phantom limb pain. Provided light touch to her residual limb for desensitization. Cognition Orientation Intact Arousal Normal Safety Awareness Impaired Safety Awareness Impairment Minimal Impairments: Needs up to 25% input/direction from therapist in order to identify safety issues and maintain safety. Affect/Ability to cope Impaired Affect/Ability to cope impairment Distracted;Anxious;Tearful Command Following Impaired Command following impairment Minimal Impairments: Needs up to 25% input/direction from therapist inorder to follow single step commands. Memory Intact Communication Intact Vision reports poor vision Precautions Therapy Precautions Yes Weight Bearing Status Left lower extremity;Non-weight bearing Precaution Info Given Yes;Contact;To use call light to request assistance with all mobility Other precautions new L AKA, anxious Additional Comments ESBL Activity Tolerance Endurance Limits participation and activity Observation Presentation Patient seated in chair Observation IV;Telemetry;Chair alarm Bed Mobility Additional Comments UIC, NT Transfers Sit to Stand Moderate assistance;With 2 people;With verbal cues Stand to Sit Moderate assistance;With 2 people;With verbal cues Additional Comments Stood 2x from recliner to bedrail and stood statically for ~45 seconds each. First stand patient leaned to the L and kept her R LE in IR. Improved upright, midline posture with second stand. Fatigues quickly. Gait Gait Non-ambulatory at this time Functional Status Score (FSS-ICU) Is the patient currently in ICU? No PT/OT Mobility Documentation PT/OT Mobility Score 4 AM PAC: How much help from another person does the patient currently need... turning from your back to your side while in a flat bed without using bedrails? 3 moving from lying on your back to sitting on the side of a flat bed without using bedrails? 2 moving to and from a bed to a chair? 2 standing up from a chair using your arms (e.g. wheelchair, or bedside chair)? 2 need to walk in hospital room? 1 climbing 3-5 steps with a railing? 1 AM PAC: BASIC MOBILITY SCORING AM PAC Moblity Raw Score 11 AM PAC Mobility CMS 0-100% Functional Percentage 66.76 AM PAC Mobility CMS G Code Modifier CL Balance Sitting Balance 2/5 supports self independently with both UEs Standing Balance 1/5 performs 25-50% (moderate assistance) Education Education To use call light to request assistance with all mobility;Patient/Family Education;Role of Therapy;Cues for proper technique;Safety with mobility;Discharge planning;Up with assistance only;P recautions;Safe and proper technique with transfers;Educated on benefits of mobility, upright positioning, and getting out of bed Patient Safety Patient Safety Patient left in chair with needs in reach;Chair/personal alarm activated;Nursing notified of status Assessment Assessment Decreased gait;Decreased functional mobility;Decreased balance;Decreased ADL status;Decreased RightLower Extremity strength;Decreased Left Lower Extremity strength;Decreased activity tolerance ;Decreased safety judgement Prognosis Fair;With continued PT s/p acute discharge Progress Slow progress toward goals (Limited by pain) Rationale for Skilled Therapy Fall Risk;Not safe with independent transfers;Balance Deficits;Not safe ambulating with assist;Needs intensive therapy;Requires multi-disciplinary team;Decreased endurance and tolerance to activity;Able to make measurable improvements;Requires physical assistance with ADLs Additional Comments Patient continues to be limited by LLE pain and anxiety. Continue to recommend intensive rehab for improvements in strength, endurance, balance and functional mobility to maximizesafety and function to return to her PLOF. Goals Will Perform Supine To Sit With minimal assist;Not assessed Will Perform Sit to Supine With minimal assist;Not assessed Will Perform Sit to Stand With minimal assist;With assist of 2;Not met Will Transfer Bed/Chair With minimal assist;With assist of 2;Not assessed Will Ambulate With 2 wheel walker;1-10 feet;With moderate assist;Not assessed Time for Goal Achievement/Duration of Treatment 06/10 (RA DUE 06/10) Plan Treatment/Interventions Continue with current plan of care Recommendation PT Recommendation High frequency, high intensity multi-disciplinary therapy for 15 hours per week. Time In / Time Out 9220-2353 IP PT Treatment Minutes 38 The total time spent caring for this patient included but was not limited to medical record review;hands-on treatment;communication and education with patient and/or family/caregiver;assessment of the patient's progress since the last session;clinical judgement necessary for treatment planning for next session;communication with nursing and/or care coordination/social work regarding patient status and discharge planning * Ramonita Jean PTA - 06/04/2025 10:08 AM EDT 06/04/25 1007 PT Subjective Note Type Follow Up Treatment Attempt PT Subjective Comments #1 [id number] Others Present/Assisting patient requesting therapy return later as she just started breakfast, will follow up Therapy delay reason Patient/family request therapist return at later time * Shonna Elkins, RN - 06/04/2025 5:30 AM EDT Patient A&O x 4, VSS, afib on monitor. Room air, sats >90%, no c/o SOB. C/o surgical leg pain being managed with PRN morphine and scott, pain decreased on reassessments. Skin assessed, No new issues. Scattered bruising and abrasions, skin tear to L forearm, redness to left and right buttocks. Left AKA. Wound care protocol followed per orders. Patient assisted with turns q2 hours. PIV site c/d/i, no complications. Patient ambulating with Steady, tolerating well. Updated on POC. Bed alarm activated and call light w/in reach. Encouraged to call out as needed. * Samia Ortega, OT - 06/03/2025 1:22 PM EDT 06/03/25 1317 OT Subjective Note Type Treatment/Progress Patient Room/Unit 5425 OT Subjective Comments #1 Pt agreeable to OT Others Present/Assisting MIKE Shipman Discharge Information This progress note will serve as the discharge summary if no further therapy is provided prior to the patient being discharged from the hospital. Admitting Diagnosis pt is an 84 y.o. F admitted 04/30 for diabetic foot infection Clinical Course 05/24 L AKA 05/26 tx to MICU d/t hypotension. pal care c/s 05/28 Tx 5D, code CP -> PE ruled out 05/29 d/c CERTIFIED CREDIT COUNSELOR Precautions Precaution Info Given Yes;Contact;To use call light to request assistance with all mobility Cognition Orientation Intact Arousal Normal Safety Awareness Impaired Safety Awareness Impairment Minimal Impairments: Needs up to 25% input/direction from therapist in order to identify safety issues and maintain safety. Affect/Ability to cope Impaired Affect/Ability to cope impairment Distracted;Anxious;Tearful Command Following Normal Communication Intact Additional comments Pt continues to be limited by pain, will attempt to see pt with pain medicationschedule Pain Screening PT/OT Patient Currently in Pain Yes Pain Rating 9 Pain Location Leg Pain Orientation Left (residual limb pain / phantom pain) Pain Intervention(s) Ambulation/Increased activity;Repositioned Observation Presentation Patient resting in bed Observation Telemetry;Bed alarm ADL Interventions Where Assessed Edge of bed;Chair Feeding Assistance (assisted with ordering pt breakfast) Grooming Assistance Stand by;Washing hands;Washing face LE Dressing Assistance Total;Don/doff R sock Toileting Total;Anterior ana care (w/bed austin 2/2 urgency, BSC not in room - placed in room for future use / education provided to pt) Bed Mobility Supine to Sit Moderate assistance;Maximum assistance;With 2 people Transfers Sit to Stand Moderate assistance;Maximum assistance;With verbal cues;With 2 people Stand to Sit Moderate assistance;Maximum assistance;With verbal cues;With 2 people Stand Pivot Transfers Moderate assistance;Maximum assistance;With cues;With 2 people OT Gait Gait Not performed Balance Sitting Balance 2/5 supports self independently with both UEs Standing Balance 0/5 performs 25% or less (maximum assistance) PT/OT Mobility Documentation PT/OT Mobility Score 4 Activity Tolerance Endurance Limits participation and activity Functional Status Score (FSS-ICU) Is the patient currently in ICU? No AM PAC: How much help from another person does the patient currently need... putting on and taking off regular lower body clothing? 1 bathing (including washing, rinsing, drying)? 2 toileting, which includes using toilet, bedpan or urinal? 1 putting on and taking off regular upper body clothing? 3 taking care of personal grooming such as brushing teeth? 3 eating meals? 3 AM PAC DAILY ACTIVITY SCORING Daily Activity Raw Score 13 AM PAC Daily Activity CMS 0-100% Functional Percentage 63.03 AM PAC Daily Activity CMS G Code Modifier CL Education Education To use call light to request assistance with all mobility;Patient/Family Education;Role of Therapy;Safety with mobility;Cues for proper technique;Up with assistance only;Safe and proper post ure/positioning;Safe and proper technique with transfers;Educated on benefits of mobility, upright positioning, and getting out of bed Patient Safety Patient left in chair with needs in reach;Chair/personal alarm activated;Nursing notified of status Assessment Assessment Decreased ADL status;Decreased UE ROM;Decreased UE strength;Decreased endurance;Decreased self-care transfers;Decreased high-level ADLs Prognosis Good;With continued OT s/p acute discharge Progress Slow progress toward goals, medical status limitations Rationale for Skilled Therapy Fall Risk;Balance Deficits;Not safe with independent transfers;Not safe ambulating independently;Needs verbal/tactile cues for ADL's;Needs physical cues for ADL's;Requires physical assistance with ADLs;Needs intensive therapy;Requires multi-disciplinary team;Able to make measurable improvements;Decreased endurance and tolerance to activity ADL Goals Pt Will Perform Upper Body Grooming Standing at sink;Contact guard;Not met Pt Will Perform Upper Body Bathing With setup;Not met Pt Will Perform Lower Body Bathing Minimal assistance;Not met Pt Will Perform LE Dressing Minimal assistance;Not met Pt Will Perform Toileting Minimal assistance;Not met Functional Transfer Goals Pt Will Perform All Functional Transfers Contact guardance;Not met Arm Goals Pt will complete HEP Supervision;Not Addressed Plan Treatment Interventions ADL retraining;Functional transfer training;UE strengthening/ROM;Endurance training;Patient/Family training;Equipment eval/education;Compensatory technique education;Co-treatment with Physical Therapy OT Frequency 2-5x/wk Recommendation OT Recommendation High frequency, high intensity multi-disciplinary therapy for 15 hours per week. Time In / Time Out [id number] (23 minutes) IP OT Individual Treatment Minutes 23 The total time spent caring for this patient included but was not limited to medical record review;hands-on treatment;communication and education with patient and/or family/caregiver;communication with nursing and/or care coordination/social work regarding patient status and discharge planning;clini george judgement necessary for treatment planning for next session * Ramonita Jean PTA - 06/03/2025 12:53 PM EDT 06/03/25 1142 PT Subjective Note Type Treatment/Progress Patient Room/Unit 5425 PT Subjective Comments #1 agrees Discharge Information This progress note will serve as the discharge summary if no further therapy is provided prior to the patient being discharged from the hospital. Admitting Diagnosis pt is an 84 y.o. F admitted 04/30 for diabetic foot infection Diagnostic Testing 05/26 CXR: Fluid overload or CHF with pulmonary edema and effusions. Clinical Course 05/24 L AKA 05/26 tx to MICU d/t hypotension. pal care c/s 05/28 Tx 5D, code CP -> PE ruled out 05/29 d/c CERTIFIED CREDIT COUNSELOR Pain Screening PT/OT Patient Currently in Pain Yes Pain Rating Patient unable to rate pain Pain Location Leg Pain Orientation Left (residual limb) Pain Intervention(s) Repositioned;Ambulation/Increased activity Additional Comments Sujata MCCRAY notified Cognition Orientation Intact Arousal Normal Safety Awareness Impaired Safety Awareness Impairment Minimal Impairments: Needs up to 25% input/direction from therapist in order to identify safety issues and maintain safety.;Moderate Impairments: Needs 25-75% input/direction from therapist in order to identify safety issues and maintain safety. Affect/Ability to cope Impaired Affect/Ability to cope impairment Distracted;Anxious;Tearful Command Following Normal Communication Intact Additional comments patient limited by left residual limb pain, RN Notified Precautions Precaution Info Given Yes;Contact;To use call light to request assistance with all mobility Other precautions new L AKA, anxious Additional Comments fall risk Observation Presentation Patient resting in bed Posture HOB elevated Observation Telemetry;Bed alarm Vitals vss on RA Bed Mobility Rolling Minimal assistance Supine to Sit Moderate assistance;Maximum assistance;With 2 people Additional Comments min/mod assist to scoot towards EOB, patient initially able to scoot a little, limited by pain Transfers Sit to Stand Moderate assistance;Maximum assistance;With verbal cues;With 2 people Stand to Sit Moderate assistance;Maximum assistance;With verbal cues;With 2 people Stand Pivot Transfers Moderate assistance;Maximum assistance;With cues;With 2 people Additional Comments patient using bedpan prior to transfer, agreeable to try BSC next time, BSC brought to room, will attempt next session Gait Gait Not performed Functional Status Score (FSS-ICU) Is the patient currently in ICU? No PT/OT Mobility Documentation PT/OT Mobility Score 4 AM PAC: How much help from another person does the patient currently need... turning from your back to your side while in a flat bed without using bedrails? 3 moving from lying on your back to sitting on the side of a flat bed without using bedrails? 2 moving to and from a bed to a chair? 2 standing up from a chair using your arms (e.g. wheelchair, or bedside chair)? 2 need to walk in hospital room? 1 climbing 3-5 steps with a railing? 1 AM PAC: BASIC MOBILITY SCORING AM PAC Moblity Raw Score 11 AM PAC Mobility CMS 0-100% Functional Percentage 66.76 AM PAC Mobility CMS G Code Modifier CL Balance Sitting Balance 2/5 supports self independently with both UEs Standing Balance 0/5 performs 25% or less (maximum assistance) Education Education To use call light to request assistance with all mobility;Safety with mobility;Cues for proper technique;Up with assistance only Patient Safety Patient Safety Patient left in chair with needs in reach;Chair/personal alarm activated;Nursing notified of status Assessment Progress Slow progress toward goals (limited by pain) Rationale for Skilled Therapy Able to make measurable improvements;Decreased endurance and tolerance to activity;Requires multi-disciplinary team;Needs intensive therapy;Requires physical assistance with ADLs;Not independent with home exercise program;Needs physical cues for ADL's;Fall Risk;Balance Deficits;Not safe ambulating with assist;Not safe with caregiver transferring patient Additional Comments Patient limited by pain in left residual limb, and upset about whole situation trying to wrap her head around this big change. Pt would benefit from intensive rehab to maximize functional transfers, gait,mobility safely, and maximize pt IND. Goals Will Perform Supine To Sit With minimal assist;Not met Will Perform Sit to Supine With minimal assist;Not met Will Perform Sit to Stand With minimal assist;With assist of 2;Not met Will Transfer Bed/Chair With minimal assist;With assist of 2;Not met Will Ambulate With 2 wheel walker;1-10 feet;With moderate assist;Not assessed Time for Goal Achievement/Duration of Treatment 06/10 Plan Treatment/Interventions Continue with current plan of care PT Frequency 3-5x/week Recommendation PT Recommendation High frequency, high intensity multi-disciplinary therapy for 15 hours per week. Time In / Time Out [id number] ([id number]) IP PT Treatment Minutes 23 Updated PT note needed in next 24hrs? Request addressed by PT * Adry Alcazar - 06/03/2025 12:45 PM EDT 06/03/25 1245 Palliative interventions Spiritual support Spiritual support and counseling by palliative professional for patient Palliative Care Hand Stemmer Pastoral Care Interventions Spiritual-emotional support;Prayer Spiritual acuity Normal complexity Care Plan Follow up 1-2x/week (Palliative Care Hand Stemmer following) Length of time in minutes spent with pt/family/chart review 45 Referred By (Palliative Care follow up visit) Palliative Care counter tacker follow up visit. Patient shared that she is experiencing a lot of pain, and endorses that it has been gradually increasing. She also expressed fear that the increase in pain is indicative of more infection. Patient informed mortgage loan underwriter that she would like to speak with someone ab out what to expect with regard to pain going forward, as well as the risk of the infection returning. Hand Stemmer communicated pt's request to nurse/MAHENDRA Colbert. Patient continues to acknowledge that her treasure in the God is providing her comfort at this time. She was receptive to prayer, which mortgage loan underwriter provided. Adry Alcazar, [facility] Hand Stemmer, Palliative Care * Stephen Pickard MD - 06/03/2025 7:22 AM EDTAssociated Problem(s): Acute cystitis without hematuria - ESBL producing proteus on cx. Completed zosyn * Stephen Pickard MD - 06/03/2025 7:21 AM EDTAssociated Problem(s): S/P transmetatarsal amputation of foot, left (HCC) - Wound dehiscence over previous left TMA site. ESR, CRP normal. WBC wnl. Afebrile. No acute infection. Not on abx - podiatry saw - vascular following - MRI L foot 05/03 with mild marrow edema of metatarsal distal stump margins without evidence of osteomyelitis - Angiogram performed, minimal blood flow past the knee, recommended AKA - s/p AKA 05/24 - pain controlled on oral meds * Stephen Pickard MD - 06/03/2025 7:21 AM EDTAssociated Problem(s): PAD (peripheral artery disease) - vascular following - severe disease - AKA as above * Stephen Pickard MD - 06/03/2025 7:21 AM EDTAssociated Problem(s): Acute respiratory failure with hypoxemia (HCC) - transferred to MICU 05/26 with hypotension and hypoxia - pulm edema on cxr - echo with EF 55-60%, indeterminate diastolic function, pulm pressure 41 mmHg - diurese as below * Stephen Pickard MD - 06/03/2025 7:21 AM EDTAssociated Problem(s): Acute pulmonary edema (HCC) - transferred to MICU 05/26 with hypotension and hypoxia - pulm edema on cxr - echo with EF 55-60%, indeterminate diastolic function, pulm pressure 41 mmHg - diurese as below * Stephen Pickard MD - 06/03/2025 7:21 AM EDTAssociated Problem(s): Acute on chronic heart failure with preserved ejection fraction (HCC) - echo as above - will repeat IV lasix again today * Stephen Pickard MD - 06/03/2025 7:21 AM EDTAssociated Problem(s): Hypotension - required transfer to ICU - cortisol equivocal but stim ok - improved. * Stephen Pickard MD - 06/03/2025 7:21 AM EDTAssociated Problem(s): Paroxysmal atrial fibrillation (HCC) - 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 - had been holding coreg for lower BPs - restart now with hold parameters as BP increased * Stephen Pickard MD - 06/03/2025 7:21 AM EDTAssociated Problem(s): Type 2 diabetes mellitus, without long-term current use of insulin (HCC) - A1c 5.3 - diet controlled - not following FSBS * Stephen Pickard MD - 06/03/2025 7:21 AM EDTAssociated Problem(s): Hypertension associated with diabetes (HCC) - meds held for lows - restart * Stephen Pickard MD - 06/03/2025 7:21 AM EDTAssociated Problem(s): Stage 3a chronic kidney disease (HCC) - Baseline approx 0.9-1.2. - stable * Stephen Pickard MD - 06/03/2025 7:21 AM EDTAssociated Problem(s): 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 - History of CABG - continue lipitor, coreg, ranexa - no chest pain * Stephen Pickard MD - 06/03/2025 7:21 AM EDTAssociated Problem(s): Anemia in other chronic diseases classified elsewhere - b12, folate, iron ok. Trasferrin down - follow trend * Stephen Pickard MD - 06/03/2025 7:21 AM EDTAssociated Problem(s): Pancytopenia (HCC) - b12, folate, iron ok. Trasferrin down - follow trend * Stephen Pickard MD - 06/03/2025 7:21 AM EDTAssociated Problem(s): Metabolic encephalopathy - continues to improve * Stephen Pickard MD - 06/03/2025 7:21 AM EDTAssociated Problem(s): Hyponatremia - hypervolemic. Recheck in AM * Stephen Pickard MD - 06/03/2025 7:21 AM EDTAssociated Problem(s): Diabetic foot infection (HCC) - Wound dehiscence over previous left TMA site. ESR, CRP normal. WBC wnl. Afebrile. No acute infection. Not on abx - podiatry saw - vascular following - MRI L foot 05/03 with mild marrow edema of metatarsal distal stump margins without evidence of osteomyelitis - Angiogram performed, minimal blood flow past the knee, recommended AKA - s/p AKA 05/24 - pain controlled on oral meds * Stephen Pickard MD - 06/03/2025 7:17 AM EDT Images from the original note were not included. PROGRESS NOTE Assessment & Plan Diabetic foot infection (HCC) S/P transmetatarsal amputation of foot, left (HCC) - Wound dehiscence over previous left TMA site. ESR, CRP normal. WBC wnl. Afebrile. No acute infection. Not on abx - podiatry saw - vascular following - MRI L foot 05/03 with mild marrow edema of metatarsal distal stump margins without evidence of osteomyelitis - Angiogram performed, minimal blood flow past the knee, recommended AKA - s/p AKA 8 - pain controlled on oral meds PAD (peripheral artery disease) - vascular following - severe disease - AKA as above Acute respiratory failure with hypoxemia (HCC) Acute pulmonary edema (HCC) - transferred to MICU 05/26 with hypotension and hypoxia - pulm edema on cxr - echo with EF 55-60%, indeterminate diastolic function, pulm pressure 41 mmHg - diurese as below Acute on chronic heart failure with preserved ejection fraction (HCC) - echo as above - will repeat IV lasix again today Hypotension - required transfer to ICU - cortisol equivocal but stim ok - improved. Paroxysmal atrial fibrillation (HCC) - 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 - had been holding coreg for lower BPs - restart now with hold parameters as BP increased Type 2 diabetes mellitus, without long-term current use of insulin (HCC) - A1c 5.3 - diet controlled - not following FSBS Hypertension associated with diabetes (HCC) - meds held for lows - restart Stage 3a chronic kidney disease (HCC) - Baseline approx 0.9-1.2. - stable 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 - History of CABG - continue lipitor, coreg, ranexa - no chest pain Anemia in other chronic diseases classified elsewhere Pancytopenia (HCC) - b12, folate, iron ok. Trasferrin down - follow trend Metabolic encephalopathy - continues to improve Acute cystitis without hematuria - ESBL producing proteus on cx. Completed zosyn Hyponatremia - hypervolemic. Recheck in AM Dispo: Handoff Completed: Yes Disposition Perspective - Medically ready for discharge: No Anticipated ready for discharge timeframe?: 1-2 days Ready for discharge when / if?: volume better and SNF arranged Admitted on 04/30/2025: with: left foot infection requiring AKA. Issues with volume overload now. Diuresing. Should be ready for SNF 1-2 days. Estimated Date of Discharge: 06/04/2025 VTE Prophylaxis: PHARM VTE PROPH NON-CANDIDATE Subjective: Feels swollen. No chest pain. No sob. Objective: BP 147/77 (BP Location: Right arm, Patient Position: Semi Fowlers) Pulse 93 Temp 98.4 ??F (36.9??C) (Oral) Resp 18 Ht 5' 2 (1.575 m) Wt 129 lb 6.6 oz (58.7 kg) SpO2 98% BMI 23.67 kg/m?? I/O last 3 completed shifts: In: 770 [P.O.:720; IV Piggyback:50] Out: 750 [Urine:750] Weight: 129 lb 6.6 oz (58.7 kg) Constitutional: Alert and oriented to person, place, and time. No distress. Cardiovascular: Normal rate and regular rhythm. Exam reveals no friction rub. No murmur heard. Pulmonary/Chest: Effort normal. Crackles on left. No respiratory distress. There are no wheezes. Abdominal: Soft. Bowel sounds are normal. No distension. There is no tenderness. There is no rebound and no guarding. Musculoskeletal: trace edema on RLE. Left AKA Neurological: Grossly normal. Skin: Skin is warm and dry. No erythema. Labs: Laboratory data and diagnostic testing reviewed 06/03/25. Stephen Pickard MD 06/03/2025 7:17 AM * Kristian Carranza RN - 06/03/2025 6:12 AM EDT Patient is alert, oriented x 4, VSS , Afebrile, A fib on monitor. O2 sats >90% on RA. Lung sound diminished. Pt has C/O left leg pain managed with PRN Scott. Xanax given for anxiety. Skin assessed - amputation site with noelle, redness to the site, scattered bruising and abrasions. Pt turned every 2 hours. Wound care protocol is followed. PIV on left fore arm C/D/I, NSL, no complication. Bed in low position, alarm is activated. Call light is in reach. Pt is updated with plan of care. Kristian Carranza RN * Tali Rodriguez RN - 06/02/2025 7:07 PM EDT Patient A&O x 4, VSS, a-fib with PVCs on monitor. Room air, sats >90%. C/o SOB at rest. MD notified. C/o L AKA pain being managed with PRN oxy and morphine, pain decreased on reassessments. Skin assessed, No new issues. See flowsheets. PIV site c/d/i, no complications. Patient not ambulating at this time. Bed alarm solar fabrication technician light at reach encouraged to call for assistance. * Stephen Pickard MD - 06/02/2025 9:53 AM EDTAssociated Problem(s): Diabetic foot infection (HCC) - Wound dehiscence over previous left TMA site. ESR, CRP normal. WBC wnl. Afebrile. No acute infection. Not on abx - podiatry saw - vascular following - MRI L foot 7/18 with mild marrow edema of metatarsal distal stump margins without evidence of osteomyelitis - Angiogram performed, minimal blood flow past the knee, recommended AKA - s/p AKA 8/8 - pain improving each day now. Last morphine early yesterday morning * Stephen Pickard MD - 06/02/2025 9:53 AM EDTAssociated Problem(s): S/P transmetatarsal amputation of foot, left (HCC) - Wound dehiscence over previous left TMA site. ESR, CRP normal. WBC wnl. Afebrile. No acute infection. Not on abx - podiatry saw - vascular following - MRI L foot 7/18 with mild marrow edema of metatarsal distal stump margins without evidence of osteomyelitis - Angiogram performed, minimal blood flow past the knee, recommended AKA - s/p AKA 8/8 - pain improving each day now. Last morphine early yesterday morning * Stephen Pickard MD - 06/02/2025 9:53 AM EDTAssociated Problem(s): PAD (peripheral artery disease) - vascular following - severe disease - AKA as above * Stephen Pickard MD - 06/02/2025 9:53 AM EDTAssociated Problem(s): Acute respiratory failure with hypoxemia (HCC) - transferred to MICU 05/26 with hypotension and hypoxia - pulm edema on cxr - echo with EF 55-60%, indeterminate diastolic function, pulm pressure 41 mmHg - diurese as below * Stephen Pickard MD - 06/02/2025 9:53 AM EDTAssociated Problem(s): Acute pulmonary edema (HCC) - transferred to MICU 05/26 with hypotension and hypoxia - pulm edema on cxr - echo with EF 55-60%, indeterminate diastolic function, pulm pressure 41 mmHg - diurese as below * Stephen Pickard MD - 06/02/2025 9:53 AM EDTAssociated Problem(s): Hypotension - required transfer to ICU - cortisol equivocal but stim ok - improved. * Stephen Pickard MD - 06/02/2025 9:53 AM EDTAssociated Problem(s): Paroxysmal atrial fibrillation (HCC) - 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 - holding coreg for lower BPs * Stephen Pickard MD - 06/02/2025 9:53 AM EDTAssociated Problem(s): Type 2 diabetes mellitus, without long-term current use of insulin (HCC) - A1c 5.3 - diet controlled - not following FSBS * Stephen Pickard MD - 06/02/2025 9:53 AM EDTAssociated Problem(s): Hypertension associated with diabetes (HCC) - meds held for lows * Stephen Pickard MD - 06/02/2025 9:53 AM EDTAssociated Problem(s): Acute on chronic heart failure with preserved ejection fraction (HCC) - echo as above - will give another dose of iv lasix today * Stephen Pickard MD - 06/02/2025 9:53 AM EDTAssociated Problem(s): Stage 3a chronic kidney disease (HCC) - Baseline approx 0.9-1.2. - stable * Stephen Pickard MD - 06/02/2025 9:53 AM EDTAssociated Problem(s): 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 - History of CABG - continue lipitor, coreg, ranexa - no chest pain * Stephen Pickard MD - 06/02/2025 9:53 AM EDTAssociated Problem(s): Anemia in other chronic diseases classified elsewhere - b12, folate, iron ok. Trasferrin down - follow trend * Stephen Pickard MD - 06/02/2025 9:53 AM EDTAssociated Problem(s): Pancytopenia (HCC) - b12, folate, iron ok. Trasferrin down - follow trend * Stephen Pickard MD - 06/02/2025 9:53 AM EDTAssociated Problem(s): Metabolic encephalopathy - continues to improve * Stephen Pickard MD - 06/02/2025 9:53 AM EDTAssociated Problem(s): Acute cystitis without hematuria - ESBL producing proteus on cx. On zosyn - completing today * Stephen Pickard MD - 06/02/2025 9:48 AM EDT Images from the original note were not included. PROGRESS NOTE Assessment & Plan Diabetic foot infection (HCC) S/P transmetatarsal amputation of foot, left (HCC) - Wound dehiscence over previous left TMA site. ESR, CRP normal. WBC wnl. Afebrile. No acute infection. Not on abx - podiatry saw - vascular following - MRI L foot 05/03 with mild marrow edema of metatarsal distal stump margins without evidence of osteomyelitis - Angiogram performed, minimal blood flow past the knee, recommended AKA - s/p AKA 05/24 - pain improving each day now. Last morphine early yesterday morning PAD (peripheral artery disease) - vascular following - severe disease - AKA as above Acute respiratory failure with hypoxemia (HCC) Acute pulmonary edema (HCC) - transferred to MICU 05/26 with hypotension and hypoxia - pulm edema on cxr - echo with EF 55-60%, indeterminate diastolic function, pulm pressure 41 mmHg - diurese as below Acute on chronic heart failure with preserved ejection fraction (HCC) - echo as above - will give another dose of iv lasix today Hypotension - required transfer to ICU - cortisol equivocal but stim ok - improved. Paroxysmal atrial fibrillation (HCC) - 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 - holding coreg for lower BPs Type 2 diabetes mellitus, without long-term current use of insulin ([facility]) - A1c 5.3 - diet controlled - not following FSBS Hypertension associated with diabetes ([facility]) - meds held for lows Stage 3a chronic kidney disease (HCC) - Baseline approx 0.9-1.2. - stable 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 - History of CABG - continue lipitor, coreg, ranexa - no chest pain Anemia in other chronic diseases classified elsewhere Pancytopenia ([facility]) - b12, folate, iron ok. Trasferrin down - follow trend Metabolic encephalopathy - continues to improve Acute cystitis without hematuria - ESBL producing proteus on cx. On zosyn - completing today Dispo: Handoff Completed: No Disposition Perspective - Medically ready for discharge: Yes Estimated Date of Discharge: 06/03/2025 VTE Prophylaxis: PHARM VTE PROPH NON-CANDIDATE Subjective: Objective: BP 138/58 (BP Location: Right arm, Patient Position: Semi Fowlers) Pulse 97 Temp 98.6 ??F (37 ??C) (Oral) Resp 18 Ht 5' 2 (1.575 m) Wt 130 lb 8.2 oz (59.2 kg) SpO2 93% BMI 23.87 kg/m?? I/O last 3 completed shifts: In: 610.9 [P.O.:360; I.V.:100.9; IV Piggyback:150] Out: - Weight: 130 lb 8.2 oz (59.2 kg) Constitutional: Alert and oriented to person, place, and time. No distress. Cardiovascular: Normal rate and regular rhythm. Exam reveals no friction rub. No murmur heard. Pulmonary/Chest: Effort normal. Breath sounds decreased. No respiratory distress. There are no wheezes. Abdominal: Soft. Bowel sounds are normal. No distension. There is no tenderness. There is no rebound and no guarding. Musculoskeletal: left AKA Neurological: Grossly normal. Skin: Skin is warm and dry. No erythema. Labs: Laboratory data and diagnostic testing reviewed 06/02/25. Stephen Pickard MD 06/02/2025 9:48 AM * Kristian Carranza RN - 06/02/2025 6:44 AM EDT Patient is alert, oriented x 4, VSS , Afebrile, A fib on monitor. O2 sats >90% on RA. Lung sound diminished. Pt has C/O left leg pain managed with PRN Scott and Morphine. Skin assessed - amputation site with noelle, redness to the site, Dressing of left AKA site changed as per order, scattered bruising and abrasions. Pt turned every 2 hours. Wound care protocol is followed. PIV on left fore arm C/D/I, intermittent infusing Abx, no complication. Bed in low position, alarm is activated. Call light is in reach. Pt is updated with plan of care. Kristian Carranza, RN * Tali Rodriguez RN - 06/01/2025 6:10 PM EDT Patient A&O x 4, VSS, a-fib with PVCs on monitor. Room air, sats >90%. C/o SOB at rest. MD notified. C/o L AKA pain being managed with PRN oxy, pain decreased on reassessments. Skin assessed, No new issues. See flowsheets. PIV site c/d/i, no complications. Patient not ambulating at this time. Bed alarm solar fabrication technician light at reach encouraged to call for assistance. * Stephen Pickard MD - 06/01/2025 9:51 AM EDTAssociated Problem(s): Diabetic foot infection (HCC) - Wound dehiscence over previous left TMA site. ESR, CRP normal. WBC wnl. Afebrile. No acute infection. Not on abx - podiatry saw - vascular following - MRI L foot 05/03 with mild marrow edema of metatarsal distal stump margins without evidence of osteomyelitis - Angiogram performed, minimal blood flow past the knee, recommended AKA - s/p AKA 05/24 - pain improving * Stephen Pickard MD - 06/01/2025 9:51 AM EDTAssociated Problem(s): S/P transmetatarsal amputation of foot, left (HCC) - Wound dehiscence over previous left TMA site. ESR, CRP normal. WBC wnl. Afebrile. No acute infection. Not on abx - podiatry saw - vascular following - MRI L foot 05/03 with mild marrow edema of metatarsal distal stump margins without evidence of osteomyelitis - Angiogram performed, minimal blood flow past the knee, recommended AKA - s/p AKA 05/24 - pain improving * Stephen Pickard MD - 06/01/2025 9:51 AM EDTAssociated Problem(s): PAD (peripheral artery disease) - vascular following - severe disease - AKA as above * Stephen Pickard MD - 06/01/2025 9:51 AM EDTAssociated Problem(s): Acute respiratory failure with hypoxemia (HCC) - transferred to MICU 05/26 with hypotension and hypoxia - pulm edema on cxr - echo with EF 55-60%, indeterminate diastolic function, pulm pressure 41 mmHg - limited diuresis due to below - on RA now * Stephen Pickard MD - 06/01/2025 9:51 AM EDTAssociated Problem(s): Acute pulmonary edema (HCC) - transferred to MICU 05/26 with hypotension and hypoxia - pulm edema on cxr - echo with EF 55-60%, indeterminate diastolic function, pulm pressure 41 mmHg - limited diuresis due to below - on RA now * Stephen Pickard MD - 06/01/2025 9:51 AM EDTAssociated Problem(s): Hypotension - required transfer to ICU - cortisol equivocal but stim ok - improved. * Stephen Pickard MD - 06/01/2025 9:51 AM EDTAssociated Problem(s): Paroxysmal atrial fibrillation (HCC) - 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 - holding coreg for lower BPs * Stephen Pickard MD - 06/01/2025 9:51 AM EDTAssociated Problem(s): Type 2 diabetes mellitus, without long-term current use of insulin (HCC) - A1c 5.3 - diet controlled - not following FSBS * Stephen Pickard MD - 06/01/2025 9:51 AM EDTAssociated Problem(s): Hypertension associated with diabetes (HCC) - meds held for lows * Stephen Pickard MD - 06/01/2025 9:51 AM EDTAssociated Problem(s): Acute on chronic heart failure with preserved ejection fraction (HCC) - Echo 2023 normal EF. - Euvolemic on exam - repeat echo as above * Stephen Pickard MD - 06/01/2025 9:51 AM EDTAssociated Problem(s): Stage 3a chronic kidney disease (HCC) - Baseline approx 0.9-1.2. - stable * Stephen Pickard MD - 06/01/2025 9:51 AM EDTAssociated Problem(s): 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 - History of CABG - continue lipitor, coreg, ranexa - no chest pain * Stephen Pickard MD - 06/01/2025 9:51 AM EDTAssociated Problem(s): Anemia in other chronic diseases classified elsewhere - b12, folate, iron ok. Trasferrin down - follow trend * Stephen Pickard MD - 06/01/2025 9:51 AM EDTAssociated Problem(s): Pancytopenia (HCC) - b12, folate, iron ok. Trasferrin down - follow trend * Stephen Pickard MD - 06/01/2025 9:51 AM EDTAssociated Problem(s): Metabolic encephalopathy - continues to improve * Stephen Pickard MD - 06/01/2025 9:51 AM EDTAssociated Problem(s): Acute cystitis without hematuria - ESBL producing proteus on cx. On zosyn - complete 7 days tomorrow * Stephen Pickard MD - 06/01/2025 9:50 AM EDT Images from the original note were not included. PROGRESS NOTE Assessment & Plan Diabetic foot infection (HCC) S/P transmetatarsal amputation of foot, left (HCC) - Wound dehiscence over previous left TMA site. ESR, CRP normal. WBC wnl. Afebrile. No acute infection. Not on abx - podiatry saw - vascular following - MRI L foot 05/03 with mild marrow edema of metatarsal distal stump margins without evidence of osteomyelitis - Angiogram performed, minimal blood flow past the knee, recommended AKA - s/p AKA 05/24 - pain improving PAD (peripheral artery disease) - vascular following - severe disease - AKA as above Acute respiratory failure with hypoxemia (HCC) Acute pulmonary edema (HCC) - transferred to MICU 05/26 with hypotension and hypoxia - pulm edema on cxr - echo with EF 55-60%, indeterminate diastolic function, pulm pressure 41 mmHg - limited diuresis due to below - on RA now Hypotension - required transfer to ICU - cortisol equivocal but stim ok - improved. Paroxysmal atrial fibrillation (HCC) - 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 - holding coreg for lower BPs Type 2 diabetes mellitus, without long-term current use of insulin (HCC) - A1c 5.3 - diet controlled - not following FSBS Hypertension associated with diabetes (HCC) - meds held for lows Chronic heart failure with preserved ejection fraction (HCC) - Echo 2023 normal EF. - Euvolemic on exam - repeat echo as above Stage 3a chronic kidney disease (HCC) - Baseline approx 0.9-1.2. - stable 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 - History of CABG - continue lipitor, coreg, ranexa - no chest pain Anemia in other chronic diseases classified elsewhere Pancytopenia (HCC) - b12, folate, iron ok. Trasferrin down - follow trend Metabolic encephalopathy - continues to improve Acute cystitis without hematuria - ESBL producing proteus on cx. On zosyn - complete 7 days tomorrow Dispo: Handoff Completed: No Disposition Perspective - Medically ready for discharge: Yes Estimated Date of Discharge: 06/01/2025 VTE Prophylaxis: Subjective: Some chest wall pain. No nausea. Stump pain improving. Objective: BP 146/74 (BP Location: Right arm, Patient Position: Semi Fowlers) Pulse 103 Temp 97.9 ??F (36.6 ??C) (Oral) Resp 18 Ht 5' 2 (1.575 m) Wt 128 lb 15.5 oz (58.5 kg) SpO2 98% BMI 23.59 kg/m?? I/O last 3 completed shifts: In: 1359.5 [P.O.:1140; I.V.:70.7; IV Piggyback:148.8] Out: 200 [Urine:200] Weight: 128 lb 15.5 oz (58.5 kg) Constitutional: Alert and oriented to person, place, and time. No distress. Cardiovascular: Normal rate and regular rhythm. Exam reveals no friction rub. No murmur heard. Pulmonary/Chest: Effort normal and breath sounds normal. No respiratory distress. There are no wheezes. Abdominal: Soft. Bowel sounds are normal. No distension. There is no tenderness. There is no rebound and no guarding. Musculoskeletal: left AKA Neurological: Grossly normal. Skin: Skin is warm and dry. No erythema. Labs: Laboratory data and diagnostic testing reviewed 06/01/25. Stephen Pickard MD 06/01/2025 9:50 AM * Kristian Carranza RN - 06/01/2025 6:37 AM EDT Patient is alert, oriented X 3, confused, VSS , Afebrile, A fib on monitor. O2 sats >90% on RA. Lung sound diminished. Pt has C/O left leg pain managed with PRN Scott and Morphine. Skin assessed - amputation site with noelle, redness to the site, Dressing of left AKA site changed as per order, scattered bruising and abrasions. Pt turned every 2 hours. Wound care protocol is followed. PIV on left fore arm C/D/I, NSL, no complication. Bed in low position, alarm is activated. Call light is in reach. Pt is updated with plan of care. Kristian Carranza RN * Yvonne Burdick RN - 05/31/2025 4:49 PM EDT 05/31/25 1647 Assessment Complete Actual Discharge Plan 05/31/25: CC Update, met with pt, son on speakerphone, discussed d/c plan, plan remains to [facility] per pt and son, possible bed over weekend per liaison, s/p AKA, will need ambulance transport, post acute previously completed, CC following. Completed by CC/SW Yes * Cely Montoya RN - 05/31/2025 12:45 PM EDT Pt refusing insulin, states that she is allergic to it. Made Dr. Pickard aware. * Melvin Elizondo RD,LD - 05/31/2025 11:47 AM EDT [facility] Nutrition Reassessment Evidence Supported Malnutrition Diagnosis: No malnutrition identified. Nutrition Problem/Diagnosis: Nutrition Diagnosis Problem 1: Increased nutrient needs (specify) (kcal and pro) related to increased demand for energy/nutrients as evidenced by wounds. Status: Active nutrition diagnosis Nutrition Prescription: Kcals: 3254-3485 kcal (25-30 kcal/kg using 52.1 kg) Protein (g): 62-78 gm Protein needs based on: 1.2-1.5 gm/kg Fluid (ml): 1 mL/kcal Other (comment): using weight of 52.1 kg Plan/Interventions: Meals and Snacks: Regular Parenteral Nutrition/IV Fluids: discontinued Medical Food Supplements: Magic Cup Medical Food/Supplement Freq: will trial Magic Cups Feeding Assistance: Mouth Care, Feeding Position Nutrition-Related Medication Management: Novolog, Protonix Nutrition Education: Supplements Collaboration And Referral Of Nutrition Care: Collaboration with other providers Nutrition Discharge Instructions: Continue to eat foods high in protein. Continue to drink protein shakes 1-2x per day for additional protein. Skyler Bautista is a 84 y.o. female patient. Admit Diagnosis: Wound dehiscence [T81.30XA] Diabetic foot infection (HCC) [E11.628, L08.9] Subjective: Subjective Comment: Pt is improving and eating better. She does not seem to enjoy breakfast, refused x3 days but eating 75-100% of lunch an dinner. She is intermittently taking supplements, drank allof her Glucerna this morning and ate Magic Cup last night. Will continue ONS as ordered. RD will continue to follow and monitor intakes. Anthropometric Measurements: Height: 5' 1 (154.9 cm) Weight: 121 lb 11.1 oz (55.2 kg) (+11.8L on I/Os since admission) BMI (Calculated): 22.99 Does Patient Have An Amputation?: Yes Percent Amputation: 10.1 % Adjusted BMI: 20.7 BMI Assessment: 18.5-24.9 Normal Adjusted IBW +/- 10%: 99 lb (44.9 kg) Adjusted % IBW: 123 Food/Nutrition Related History: Dietary Orders Ordered Regular Diet DIET EFFECTIVE NOW 05/24/25 1154 GLUCERNA Therapeutic oral supplement 1 'box' Oral Q AM 1 'box' at 05/31/25 0908 Magic Cup Dessert oral supplement 1 Each Oral Daily 1 Each at 05/29/25 1715 Food Insecurity Within the past 12 months, you worried that your food would run out before you got the money to buymore.: Never true Within the past 12 months, the food you bought just didn't last and you didn't have money to get more.: Never true % Avg Meals Consumed: 56 % (x6 meals) Supplement Acceptance: taking about 50% Tube Feeding?: No TPN?: No Food Allergies: NKFA Level of Assistance: Independent Chewing Difficulty: Other (comment) (poor dentition) Swallowing Difficulty: No Nutrition Focused Physical Findings: LDAs- Active NG/OG/NJ,Wound,Pressure Injury,or Drain Wound Duration Incision/Wound Skin tear Hand Posterior;Right 31 days Incision/Wound MASD Coccyx Mid gluteal split 24 days Incision/Wound Closed Surgical Leg Upper;Left 7 days Incision/Wound Skin tear Arm Right;Anterior;Upper open, moist, scant bloody draingage. 5 days I/O last 3 completed shifts: In: 1504.3 [P.O.:1307; I.V.:78.9; IV Piggyback:118.5] Out: 0 Edema:Generalized Edema: No Facial Edema: No Right Lower Extremity Edema: Trace Left Lower Extremity Edema: Unable to assess Perineal Edema: +2, Non-pitting Abdomen: Abdominal/GI Abdomen Inspection: Soft Bowel Sounds (All Quadrants): Active Abdominal palpation: Soft Nausea: No Constipation: No When was last BM? (Date): 05/30/25 Stool Assessment: Stool Occurrence: 1 Stool Appearance: (!) Type 6 [place] Stool Chart Stool Color: Brown Stool Amount: Large Biochemical Data/Medical Tests: Pertinent Meds: Protonix, Novolog Pertinent Labs: gluc 100-179 Pertinent Medical Tests/Procedures: L AKA 05/24 Pertinent Medical History: DM, HTN, CHF, liver disease, HLD, stroke, CAD, CKD, CABG Clinical Course: Clinical Course: Admitted with L TMA dehiscence. 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 Transferred to MICU 05/26 d/t hypotension. CXR with pulmonary edema. Palliative care following. Wound Care noted. Refusing some meals. * Deng Mas PTA - 05/31/2025 9:05 AM EDT 05/31/25 0858 PT Subjective Note Type Treatment/Progress Patient Room/Unit 5425 PT Subjective Comments #1 Pt agreeable to therapy Others Present/Assisting [employer] Discharge Information This progress note will serve as the discharge summary if no further therapy is provided prior to the patient being discharged from the hospital. Admitting Diagnosis pt is an 84 y.o. F admitted 04/30 for diabetic foot infection Past Med Hx Afib, PAD, HFpEF, L TMA 03/2025, R femur fx 03/2024, CABG 05/2024, emphysema, DANTE, Afib Diagnostic Testing 05/26 CXR: Fluid overload or CHF with pulmonary edema and effusions. Clinical Course 05/24 L AKA 05/26 tx to MICU d/t hypotension. 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 Affect/Ability to cope Impaired Affect/Ability to cope impairment Anxious;Tearful Command Following Normal Communication Intact Precautions Therapy Precautions Yes Precaution Info Given To use call light to request assistance with all mobility Observation Presentation Patient resting in bed Posture HOB elevated. bed was soiled with urine Observation IV;Bed alarm;Telemetry Bed Mobility Supine to Sit Maximum assistance;With cues Additional Comments pt requires max A to sit to EOB with HOB elevated and use of rails. vc for safety and sequencing for hand placement. Increased pain to L LE and also max to scoot to EOB. Pt demod good sitting balance with no LOB sitting at this time but increased pain Transfers Sit to Stand Maximum assistance;With verbal cues;With raised bed height Stand to Sit Maximum assistance;With verbal cues Bed to/from chair Maximum assistance;With verbal cues;Stedy Additional Comments pt needed to use bathroom. stedy utilized to pull self upright to stedy standing on LLE suppurting heavily with BUE for posture and to maintain LLE position to not slide. max A for transfer with stedy for balance and to stand from low toilet seat as well. upon sitting to toilet pt did not extend LLE forward so when slightly down into toilet rim with increased pain. wrap fell off with small amount of bleeding. Pt used bathroom then stood back up and transfered to chair where therapist laid pt back and rewraped LLE. Gait Gait Not performed PT/OT Mobility Documentation PT/OT Mobility Score 4 AM PAC: How much help from another person does the patient currently need... turning from your back to your side while in a flat bed without using bedrails? 2 moving from lying on your back to sitting on the side of a flat bed without using bedrails? 2 moving to and from a bed to a chair? 2 standing up from a chair using your arms (e.g. wheelchair, or bedside chair)? 2 need to walk in hospital room? 1 climbing 3-5 steps with a railing? 1 AM PAC: BASIC MOBILITY SCORING AM PAC Moblity Raw Score 10 AM PAC Mobility CMS 0-100% Functional Percentage 71.92 AM PAC Mobility CMS G Code Modifier CL Balance Sitting Balance 1+/5 supports self with >50% effort using UE, requires therapist assistance Standing Balance 0/5 performs 25% or less (maximum assistance) Exercise Exercise Yes Education Education To use call light to request assistance with all mobility;Patient/Family Education;Role of Therapy;Safety with mobility;Cues for proper technique;Up with assistance only;Safe and proper technique with transfers;Educated on benefits of mobility, upright positioning, and getting out of bed Patient Safety Patient Safety Patient left in chair with needs in reach;Chair/personal alarm activated;Nursing notified of status Assessment Prognosis Fair;With continued PT s/p acute discharge Progress Slow progress toward goals Rationale for Skilled Therapy Fall Risk;Balance Deficits;Not safe with independent transfers;Not safe ambulating independently;Needs intensive therapy;Requires multi-disciplinary team;Able to make measurable improvements Additional Comments PT limited by pain this session and upset about whole situation trying to wrap her head around this big change. Pt would benefit from intensive rehab to maximize functional transfers, gait,mobility safely to decrease rehospitlization, and maximize pt IND. Goals Will Perform Supine To Sit With minimal assist;Not met Will Perform Sit to Supine With minimal assist;Not met Will Perform Sit to Stand With minimal assist;With assist of 2;Not met Will Transfer Bed/Chair With minimal assist;With assist of 2;Not met Will Ambulate With 2 wheel walker;1-10 feet;With moderate assist;Not assessed Time for Goal Achievement/Duration of Treatment 06/10/25 Plan Treatment/Interventions Continue with current plan of care PT Frequency 3-5x/week Recommendation PT Recommendation High frequency, high intensity multi-disciplinary therapy for 15 hours per week. Time In / Time Out [phone], [phone] IP PT Treatment Minutes 38 The total time spent caring for this patient included but was not limited to medical record review;hands-on treatment;communication and education with patient and/or family/caregiver;assessment of the patient's progress since the last session;clinical judgement necessary for treatment planning for next session;communication with nursing and/or care coordination/social work regarding patient status and discharge planning * Stephen Pickard MD - 05/31/2025 8:02 AM EDTAssociated Problem(s): Diabetic foot infection (HCC) - Wound dehiscence over previous left TMA site. ESR, CRP normal. WBC wnl. Afebrile. No acute infection. Not on abx - podiatry saw - vascular following - MRI L foot 7/18 with mild marrow edema of metatarsal distal stump margins without evidence of osteomyelitis - Angiogram performed, minimal blood flow past the knee, recommended AKA - s/p AKA 05/24 - pain improving * Stephen Pickard MD - 05/31/2025 8:02 AM EDTAssociated Problem(s): S/P transmetatarsal amputation of foot, left (HCC) - Wound dehiscence over previous left TMA site. ESR, CRP normal. WBC wnl. Afebrile. No acute infection. Not on abx - podiatry saw - vascular following - MRI L foot 7/18 with mild marrow edema of metatarsal distal stump margins without evidence of osteomyelitis - Angiogram performed, minimal blood flow past the knee, recommended AKA - s/p AKA 05/24 - pain improving * Stephen Pickard MD - 05/31/2025 8:02 AM EDTAssociated Problem(s): PAD (peripheral artery disease) - vascular following - severe disease - AKA as above * Stephen Pickard MD - 05/31/2025 8:02 AM EDTAssociated Problem(s): Acute respiratory failure with hypoxemia (HCC) - transferred to MICU 05/26 with hypotension and hypoxia - pulm edema on cxr - echo with EF 55-60%, indeterminate diastolic function, pulm pressure 41 mmHg - limited diuresis due to below - remains on 2L now * Stephen Pickard MD - 05/31/2025 8:02 AM EDTAssociated Problem(s): Acute pulmonary edema (HCC) - transferred to MICU 05/26 with hypotension and hypoxia - pulm edema on cxr - echo with EF 55-60%, indeterminate diastolic function, pulm pressure 41 mmHg - limited diuresis due to below - remains on 2L now * Stephen Pickard MD - 05/31/2025 8:02 AM EDTAssociated Problem(s): Hypotension - required transfer to ICU - cortisol equivocal but stim ok - improved. * Stephen Pickard MD - 05/31/2025 8:02 AM EDTAssociated Problem(s): Paroxysmal atrial fibrillation (HCC) - 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 - holding coreg for lower BPs * Stephen Pickard MD - 05/31/2025 8:02 AM EDTAssociated Problem(s): Type 2 diabetes mellitus, without long-term current use of insulin (HCC) - A1c 5.3 - diet controlled - not following FSBS * Stephen Pickard MD - 05/31/2025 8:02 AM EDTAssociated Problem(s): Hypertension associated with diabetes (HCC) - meds held for lows * Stephen Pickard MD - 05/31/2025 8:02 AM EDTAssociated Problem(s): Acute on chronic heart failure with preserved ejection fraction (HCC) - Echo 2023 normal EF. - Euvolemic on exam - repeat echo as above * Stephen Pickard MD - 05/31/2025 8:02 AM EDTAssociated Problem(s): Stage 3a chronic kidney disease (HCC) - Baseline approx 0.9-1.2. - stable * Stephen Pickard MD - 05/31/2025 8:02 AM EDTAssociated Problem(s): 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 - History of CABG - continue lipitor, coreg, ranexa - no chest pain * Stephen Pickard MD - 05/31/2025 8:02 AM EDTAssociated Problem(s): Anemia in other chronic diseases classified elsewhere - b12, folate, iron ok. Trasferrin down - follow trend * Stephen Pickard MD - 05/31/2025 8:02 AM EDTAssociated Problem(s): Pancytopenia (HCC) - b12, folate, iron ok. Trasferrin down - follow trend * Stephen Pickard MD - 05/31/2025 8:02 AM EDTAssociated Problem(s): Metabolic encephalopathy - continues to improve * Stephen Pickard MD - 05/31/2025 8:02 AM EDTAssociated Problem(s): Acute cystitis without hematuria - ESBL producing proteus on cx. On zosyn - complete 7 days * Stephen Pickard MD - 05/31/2025 7:59 AM EDT Images from the original note were not included. PROGRESS NOTE Assessment & Plan Diabetic foot infection (HCC) S/P transmetatarsal amputation of foot, left (HCC) - Wound dehiscence over previous left TMA site. ESR, CRP normal. WBC wnl. Afebrile. No acute infection. Not on abx - podiatry saw - vascular following - MRI L foot 05/03 with mild marrow edema of metatarsal distal stump margins without evidence of osteomyelitis - Angiogram performed, minimal blood flow past the knee, recommended AKA - s/p AKA 05/24 - pain improving PAD (peripheral artery disease) - vascular following - severe disease - AKA as above Acute respiratory failure with hypoxemia (HCC) Acute pulmonary edema (HCC) - transferred to MICU 05/26 with hypotension and hypoxia - pulm edema on cxr - echo with EF 55-60%, indeterminate diastolic function, pulm pressure 41 mmHg - limited diuresis due to below - remains on 2L now Hypotension - required transfer to ICU - cortisol equivocal but stim ok - improved. Paroxysmal atrial fibrillation (HCC) - 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 - holding coreg for lower BPs Type 2 diabetes mellitus, without long-term current use of insulin ([facility]) - A1c 5.3 - diet controlled - not following FSBS Hypertension associated with diabetes ([facility]) - meds held for lows Chronic heart failure with preserved ejection fraction (HCC) - Echo 2023 normal EF. - Euvolemic on exam - repeat echo as above Stage 3a chronic kidney disease (HCC) - Baseline approx 0.9-1.2. - stable 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 - History of CABG - continue lipitor, coreg, ranexa - no chest pain Anemia in other chronic diseases classified elsewhere Pancytopenia (HCC) - b12, folate, iron ok. Trasferrin down - follow trend Metabolic encephalopathy - continues to improve Acute cystitis without hematuria - ESBL producing proteus on cx. On zosyn - complete 7 days Dispo: Handoff Completed: No Disposition Perspective - Medically ready for discharge: No Anticipated ready for discharge timeframe?: 1-2 days Ready for discharge when / if?: ok with others and complete iv abx at [facility] Estimated Date of Discharge: 05/31/2025 VTE Prophylaxis: PHARM VTE PROPH NON-CANDIDATE Subjective: Still with leg pain but improving. No chest pain or sob. Objective: BP 141/60 (BP Location: Left arm, Patient Position: Semi Fowlers) Pulse 83 Temp 98.6 ??F (37 ??C) (Oral) Resp 16 Ht 5' 2 (1.575 m) Wt 121 lb 11.1 oz (55.2 kg) SpO2 91% BMI 22.26 kg/m?? I/O last 3 completed shifts: In: 1504.3 [P.O.:1307; I.V.:78.9; IV Piggyback:118.5] Out: 0 Weight: 121 lb 11.1 oz (55.2 kg) Constitutional: Alert and oriented to person, place, and time. No distress. Cardiovascular: Normal rate and regular rhythm. Exam reveals no friction rub. No murmur heard. Pulmonary/Chest: Effort normal and breath sounds normal. No respiratory distress. There are no wheezes. Abdominal: Soft. Bowel sounds are normal. No distension. There is no tenderness. There is no rebound and no guarding. Musculoskeletal: left AKA Neurological: Grossly normal. Skin: Skin is warm and dry. No erythema. Labs: Laboratory data and diagnostic testing reviewed 05/31/25. Stephen Pickard MD 05/31/2025 7:59 AM * Claudette Dean RN - 05/31/2025 3:11 AM EDT Images from the original note were not included. Daily Progress Note: Patient A&O x 4, VSS, Afib on monitor. Room air, sats >90%, no c/o SOB. C/o surgical leg pain from L AKA, managed with prn chace Skin assessed, No new issues. Wound care protocol followed per orders. Patient turning q2hr in bed with assistance. PIV site c/d/i, flushed well, no complications. Patient uses bedpan Patient urinated at shift change but has not overnight. patient states she does not need to go while she sleeps and declines a bladder scan at this time. Patient refuses dressing change and states it is done during the day prior to shift change and doesnot feel it is needed. Updated on POC. Bed alarm activated and call light w/in reach. * Samia Ortega, FLORESITA - 05/30/2025 11:48 AM EDT 05/30/25 1053 OT Subjective Note Type Treatment/Progress Patient Room/Unit 5425 OT Subjective Comments #1 Pt agreeable to OT tx Others Present/Assisting MIKE Rivera Discharge Information This progress note will serve as the discharge summary if no further therapy is provided prior to the patient being discharged from the hospital. Admitting Diagnosis pt is an 84 y.o. F admitted 04/30 for diabetic foot infection Clinical Course 05/24 L AKA 05/26 tx to MICU d/t hypotension. 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 Affect/Ability to cope Impaired Affect/Ability to cope impairment Anxious Command Following Normal Communication Intact Pain Screening PT/OT Patient Currently in Pain Yes Pain Rating 10 Pain Location Leg Pain Orientation Left Pain Intervention(s) Repositioned;Ambulation/Increased activity;Emotional support Observation Presentation Patient resting in bed Observation IV;Bed alarm;Telemetry ADL Interventions Where Assessed Chair;Edge of bed Grooming Assistance Stand by;Washing hands;Washing face;Minimal;Hair care (Silvestre for haircare / SBA for oral care, washing hands/face) UE Bathing Assistance Stand by;Chest;LUE;RUE;Abdomen LE Bathing Assistance Moderate;R upper leg;R lower leg/foot UE Dressing Assistance Minimal;Thread RUE;Thread LUE;Unthread RUE;Unthread LUE LE Dressing Assistance Maximal;Don/doff R sock Toileting Incontinent Bed Mobility Rolling Minimal assistance;With 2 people;Head of bed slightly elevated;With bed rails;With cues Supine to Sit Moderate assistance;With 2 people;Head of bed slightly elevated;With bed rails Additional Comments Pt remained supine to rewrap L stump, transitioned to sitting EOB w/Ax2. ModA to scoot to EOB. Transfers Sit to Stand With raised bed height;Maximum assistance;With 2 people;With verbal cues Stand to Sit Maximum assistance;With 2 people;With verbal cues Bed to/from chair Maximum assistance;With 2 people;With verbal cues Additional Comments Pt stands to RWx and shuffled R LLE with to sit to chair. Ax2 to scoot bottom back into chair Functional Transfers Toilet Transfers Not tested OT Gait Gait Not performed Balance Sitting Balance 1+/5 supports self with >50% effort using UE, requires therapist assistance Standing Balance 0/5 performs 25% or less (maximum assistance) PT/OT Mobility Documentation PT/OT Mobility Score 4 Activity Tolerance Endurance Limits participation and activity Functional Status Score (FSS-ICU) Is the patient currently in ICU? No AM PAC: How much help from another person does the patient currently need... putting on and taking off regular lower body clothing? 2 bathing (including washing, rinsing, drying)? 2 toileting, which includes using toilet, bedpan or urinal? 1 putting on and taking off regular upper body clothing? 3 taking care of personal grooming such as brushing teeth? 3 eating meals? 3 AM PAC DAILY ACTIVITY SCORING Daily Activity Raw Score 14 AM PAC Daily Activity CMS 0-100% Functional Percentage 59.67 AM PAC Daily Activity [facility] G Code Modifier CK Education Education To use call light to request assistance with all mobility;Patient/Family Education;Role of Therapy;Safety with mobility;Cues for proper technique;Up with assistance only;Safe and proper post ure/positioning;Safe and proper technique with transfers;Educated on benefits of mobility, upright positioning, and getting out of bed Patient Safety Patient left in chair with needs in reach;Chair/personal alarm activated;Nursing notified of status Assessment Assessment Decreased ADL status;Decreased UE ROM;Decreased UE strength;Decreased endurance;Decreased self-care transfers;Decreased high-level ADLs Prognosis Good;With continued OT s/p acute discharge Progress Slow progress toward goals, medical status limitations Rationale for Skilled Therapy Fall Risk;Balance Deficits;Not safe with independent transfers;Not safe ambulating independently;Needs verbal/tactile cues for ADL's;Needs physical cues for ADL's;Requires physical assistance with ADLs;Needs intensive therapy;Requires multi-disciplinary team;Able to make measurable improvements;Decreased endurance and tolerance to activity ADL Goals Pt Will Perform Upper Body Grooming Standing at sink;Contact guard;Not met Pt Will Perform Upper Body Bathing With setup;Not met Pt Will Perform Lower Body Bathing Minimal assistance;Not met Pt Will Perform LE Dressing Minimal assistance;Not met Pt Will Perform Toileting Minimal assistance;Not met Functional Transfer Goals Pt Will Perform All Functional Transfers Contact guardance;Not met Arm Goals Pt will complete HEP Supervision;Not Addressed Plan Treatment Interventions ADL retraining;Functional transfer training;UE strengthening/ROM;Endurance training;Patient/Family training;Equipment eval/education;Compensatory technique education;Co-treatment with Physical Therapy OT Frequency 2-5x/wk Recommendation OT Recommendation High frequency, high intensity multi-disciplinary therapy for 15 hours per week. Time In / Time Out [id number] (41 minutes) IP OT Individual Treatment Minutes 41 The total time spent caring for this patient included but was not limited to medical record review;hands-on treatment;communication and education with patient and/or family/caregiver;clinical judgement necessary for treatment planning for next session;communication with nursing and/or care coordinat ion/social work regarding patient status and discharge planning * Stephen Pickard MD - 05/30/2025 11:39 AM EDTAssociated Problem(s): Diabetic foot infection (HCC) - Wound dehiscence over previous left TMA site. ESR, CRP normal. WBC wnl. Afebrile. No acute infection. Not on abx - podiatry saw - vascular following - MRI L foot 05/03 with mild marrow edema of metatarsal distal stump margins without evidence of osteomyelitis - Angiogram performed, minimal blood flow past the knee, recommended AKA - s/p AKA 05/24 - issues with pain appear to be improving. Continue same regimen today * Stephen Pickard MD - 05/30/2025 11:39 AM EDTAssociated Problem(s): S/P transmetatarsal amputation of foot, left (HCC) - Wound dehiscence over previous left TMA site. ESR, CRP normal. WBC wnl. Afebrile. No acute infection. Not on abx - podiatry saw - vascular following - MRI L foot 05/03 with mild marrow edema of metatarsal distal stump margins without evidence of osteomyelitis - Angiogram performed, minimal blood flow past the knee, recommended AKA - s/p AKA 05/24 - issues with pain appear to be improving. Continue same regimen today * Stephen Pickard MD - 05/30/2025 11:39 AM EDTAssociated Problem(s): PAD (peripheral artery disease) - vascular following - severe disease - AKA as above * Stephen Pickard MD - 05/30/2025 11:39 AM EDTAssociated Problem(s): Acute respiratory failure with hypoxemia (HCC) - transferred to MICU 05/26 with hypotension and hypoxia - pulm edema on cxr - echo with EF 55-60%, indeterminate diastolic function, pulm pressure 41 mmHg - limited diuresis due to below - satting well now on 2L * Stephen Pickard MD - 05/30/2025 11:39 AM EDTAssociated Problem(s): Acute pulmonary edema (HCC) - transferred to MICU 05/26 with hypotension and hypoxia - pulm edema on cxr - echo with EF 55-60%, indeterminate diastolic function, pulm pressure 41 mmHg - limited diuresis due to below - satting well now on 2L * Stephen Pickard MD - 05/30/2025 11:39 AM EDTAssociated Problem(s): Hypotension - required transfer to ICU - cortisol equivocal but stim ok - improved. * Stephen Pickard MD - 05/30/2025 11:39 AM EDTAssociated Problem(s): Paroxysmal atrial fibrillation (HCC) - 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 - rate controlled on coreg * Stephen Pickard MD - 05/30/2025 11:39 AM EDTAssociated Problem(s): Type 2 diabetes mellitus, without long-term current use of insulin (HCC) - A1c 5.3 - diet controlled - not following FSBS * Stephen Pickard MD - 05/30/2025 11:39 AM EDTAssociated Problem(s): Hypertension associated with diabetes (HCC) - meds held for lows * Stephen Pickard MD - 05/30/2025 11:39 AM EDTAssociated Problem(s): Acute on chronic heart failure with preserved ejection fraction (HCC) - Echo 2023 normal EF. - Euvolemic on exam - repeat echo as above * Stephen Pickard MD - 05/30/2025 11:39 AM EDTAssociated Problem(s): Stage 3a chronic kidney disease (HCC) - Baseline approx 0.9-1.2. - stable * Stephen Pickard MD - 05/30/2025 11:39 AM EDTAssociated Problem(s): 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 - History of CABG - continue lipitor, coreg, ranexa - no chest pain * Stephen Pickard MD - 05/30/2025 11:39 AM EDTAssociated Problem(s): Anemia in other chronic diseases classified elsewhere - b12, folate, iron ok. Trasferrin down - follow trend * Stephen Pickard MD - 05/30/2025 11:39 AM EDTAssociated Problem(s): Pancytopenia (HCC) - b12, folate, iron ok. Trasferrin down - follow trend * Stephen Pickard MD - 05/30/2025 11:39 AM EDTAssociated Problem(s): Metabolic encephalopathy - improving today - improved today * Stephen Pickard MD - 05/30/2025 11:39 AM EDTAssociated Problem(s): Acute cystitis without hematuria - ESBL producing proteus on cx. On zosyn - complete 7 days * Stephen Pickard MD - 05/30/2025 11:34 AM EDT Images from the original note were not included. PROGRESS NOTE Assessment & Plan Diabetic foot infection (HCC) S/P transmetatarsal amputation of foot, left (HCC) - Wound dehiscence over previous left TMA site. ESR, CRP normal. WBC wnl. Afebrile. No acute infection. Not on abx - podiatry saw - vascular following - MRI L foot 05/03 with mild marrow edema of metatarsal distal stump margins without evidence of osteomyelitis - Angiogram performed, minimal blood flow past the knee, recommended AKA - s/p AKA 05/24 - issues with pain appear to be improving. Continue same regimen today PAD (peripheral artery disease) - vascular following - severe disease - AKA as above Acute respiratory failure with hypoxemia (HCC) Acute pulmonary edema (HCC) - transferred to MICU 05/26 with hypotension and hypoxia - pulm edema on cxr - echo with EF 55-60%, indeterminate diastolic function, pulm pressure 41 mmHg - limited diuresis due to below - satting well now on 2L Hypotension - required transfer to ICU - cortisol equivocal but stim ok - improved. Paroxysmal atrial fibrillation (HCC) - 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 - rate controlled on coreg Type 2 diabetes mellitus, without long-term current use of insulin (HCC) - A1c 5.3 - diet controlled - not following FSBS Hypertension associated with diabetes (HCC) - meds held for lows Chronic heart failure with preserved ejection fraction (HCC) - Echo 2023 normal EF. - Euvolemic on exam - repeat echo as above Stage 3a chronic kidney disease (HCC) - Baseline approx 0.9-1.2. - stable 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 - History of CABG - continue lipitor, coreg, ranexa - no chest pain Anemia in other chronic diseases classified elsewhere Pancytopenia (HCC) - b12, folate, iron ok. Trasferrin down - follow trend Metabolic encephalopathy - improving today - improved today Acute cystitis without hematuria - ESBL producing proteus on cx. On zosyn - complete 7 days Dispo: Handoff Completed: No Disposition Perspective - Medically ready for discharge: No Anticipated ready for discharge timeframe?: 1-2 days Ready for discharge when / if?: pain controlled Estimated Date of Discharge: 05/31/2025 VTE Prophylaxis: SCDs Subjective: Still with stump pain but pain pills helping. No nausea. Objective: BP 153/81 (BP Location: Left arm) Pulse 95 Temp 98.6 ??F (37 ??C) (Oral) Resp 18 Ht 5' 2 (1.575 m) Wt 119 lb 0.8 oz (54 kg) SpO2 91% Comment: RA BMI 21.77 kg/m?? I/O last 3 completed shifts: In: 1539.7 [P.O.:480; I.V.:919.7; IV Piggyback:140] Out: 750 [Urine:750] Weight: 119 lb 0.8 oz (54 kg) Constitutional: Alert and oriented to person, place, and time. No distress. Cardiovascular: Normal rate and regular rhythm. Exam reveals no friction rub. No murmur heard. Pulmonary/Chest: Effort normal and breath sounds normal. No respiratory distress. There are no wheezes. Abdominal: Soft. Bowel sounds are normal. No distension. There is no tenderness. There is no rebound and no guarding. Musculoskeletal: left AKA Neurological: Grossly normal. Skin: Skin is warm and dry. No erythema. Labs: Laboratory data and diagnostic testing reviewed 05/30/25. Stephen Pickard MD 05/30/2025 11:34 AM * Nicole Zaidi, QUALITY CONTROL ASSOCIATE - 05/30/2025 9:03 AM EDT 05/30/25 0903 PT Subjective Note Type Treatment/Progress Patient Room/Unit 5425 PT Subjective Comments #1 Agreeable. Others Present/Assisting Samia Ortega OT Discharge Information This progress note will serve as the discharge summary if no further therapy is provided prior to the patient being discharged from the hospital. Admitting Diagnosis pt is an 84 y.o. F admitted 04/30 for diabetic foot infection Past Med Hx Afib, PAD, HFpEF, L TMA 03/2025, R femur fx 03/2024, CABG 05/2024, emphysema, DANTE, Afib Diagnostic Testing 05/26 CXR: Fluid overload or CHF with pulmonary edema and effusions. Clinical Course L AKA on 8/8, tx to MICU d/t hypotension. Pain Screening PT/OT Patient Currently in Pain Yes Pain Rating Patient unable to rate pain Pain Location Leg Pain Orientation Left Pain Intervention(s) Repositioned;Ambulation/Increased activity;Emotional support Additional Comments left stump and phantom pain Cognition Orientation Intact Arousal Normal Safety Awareness Impaired Safety Awareness Impairment Minimal Impairments: Needs up to 25% input/direction from therapist in order to identify safety issues and maintain safety. Affect/Ability to cope Impaired Affect/Ability to cope impairment Anxious Command Following Normal Communication Intact Precautions Precaution Info Given Yes;To use call light to request assistance with all mobility Observation Presentation Patient resting in bed Posture HOB sligthly elevated; wrapping from stump on table Observation IV;Bed alarm;Telemetry Vitals RA Bed Mobility Rolling Minimal assistance;With 2 people;Head of bed slightly elevated;With bed rails;With cues Supine to Sit Moderate assistance;With 2 people;Head of bed slightly elevated;With bed rails Additional Comments Mod A to scoot over to left side of bed for mortgage loan underwriter to have better angle to wrapstump; (D) to wrap left stump; pt then rolled to right side and SOSOB. Sits with Min A and bilat UEsupport slight post lean- modA to scoot towards EOB. Post few min able to sit with SBA and hands inlap. Transfers Sit to Stand With raised bed height;Maximum assistance;With 2 people;With verbal cues Stand to Sit Maximum assistance;With 2 people;With verbal cues Bed to/from chair Maximum assistance;With 2 people;With verbal cues Additional Comments pt stood with rolling walker with max A x 2- able to hop/pivot to her right with max A x 2. Sat & rested. Max A x 2 to scoot back into chair. Gait Gait Not performed Functional Status Score (FSS-ICU) Is the patient currently in ICU? No PT/OT Mobility Documentation PT/OT Mobility Score 4 AM PAC: How much help from another person does the patient currently need... turning from your back to your side while in a flat bed without using bedrails? 2 moving from lying on your back to sitting on the side of a flat bed without using bedrails? 2 moving to and from a bed to a chair? 2 standing up from a chair using your arms (e.g. wheelchair, or bedside chair)? 2 need to walk in hospital room? 1 climbing 3-5 steps with a railing? 1 AM PAC: BASIC MOBILITY SCORING AM PAC Moblity Raw Score 10 AM PAC Mobility CMS 0-100% Functional Percentage 71.92 AM PAC Mobility CMS G Code Modifier CL Balance Sitting Balance 1+/5 supports self with >50% effort using UE, requires therapist assistance Standing Balance 0/5 performs 25% or less (maximum assistance) Exercise Exercise Yes Supine Supine Glut Sets x 10 bilat Supine SLR's x 10 left; right x 3-5 Supine Hip Abduction x 10 bilat Upper Extremity Exercises Shoulder Flexion x 10 bilat min ROM Education Education To use call light to request assistance with all mobility;Patient/Family Education;Role of Therapy;Safety with mobility;Cues for proper technique;Up with assistance only;Safe and proper post ure/positioning;Safe and proper technique with transfers;Safe and proper technique with gait pattern;Educated on benefits of mobility, upright positioning, and getting out of bed Patient Safety Patient Safety Patient left in chair with needs in reach;Nursing notified of status;Chair/personal alarm activated Assessment Assessment Decreased gait;Decreased functional mobility;Decreased balance;Decreased RightLower Extremity strength;Decreased Left Lower Extremity strength;Decreased activity tolerance ;Decreased safety judgement Prognosis Fair;With continued PT s/p acute discharge Progress Slow progress toward goals Rationale for Skilled Therapy Fall Risk;Balance Deficits;Not safe with independent transfers;Not safe ambulating independently;Needs intensive therapy;Requires multi-disciplinary team;Able to make measurable improvements Additional Comments Pain with movement but able to stand and transfer to chair this date. Goals Will Perform Supine To Sit With minimal assist;Not met Will Perform Sit to Supine With minimal assist;Not met Will Perform Sit to Stand With minimal assist;With assist of 2;Not met Will Transfer Bed/Chair With minimal assist;With assist of 2;Not met Will Ambulate With 2 wheel walker;1-10 feet;With moderate assist;Not assessed Time for Goal Achievement/Duration of Treatment 06/10/25 Plan Treatment/Interventions Continue with current plan of care PT Frequency 3-5x/week Recommendation PT Recommendation High frequency, high intensity multi-disciplinary therapy for 15 hours per week. Time In / Time Out [id number] IP PT Treatment Minutes 31 The total time spent caring for this patient included but was not limited to medical record review;hands-on treatment;communication and education with patient and/or family/caregiver;assessment of the patient's progress since the last session;communication with nursing and/or care coordination/social work regarding patient status and discharge planning * Claudette Dean, RN - 05/30/2025 5:53 AM EDT Daily Progress Note: Patient A&O x 4, VSS, Afib on monitor. Room air, sats >90%, no c/o SOB. C/o surgical leg pain from L AKA, managed with prn chace Skin assessed, No new issues. Wound care protocol followed per orders. Patient turning q2hr in bed with assistance. PIV site c/d/i, flushed well, no complications. Patient uses bedpan Patient urinated once overnight, when asked to do a bladder scan the patient refused and stated she did not feel she even needed to go so it was not necessary Updated on POC. Bed alarm activated and call light w/in reach. * Yvonne Burdick RN - 05/29/2025 4:37 PM EDT 05/29/25 1636 Assessment Complete Actual Discharge Plan 05/29/25: CC Update, met with pt, sister in room, s/p AKA, [facility] and [facility] following, per pt and sister, [facility] is 1st choice if appropriate, anticipate need forambulance transport at d/c, CC following. Completed by CC/SW Yes * Dee Dee Olivia RD,LD - 05/29/2025 3:30 PM EDT [facility] Nutrition Reassessment Nutrition Problem/Diagnosis: Nutrition Diagnosis Problem 1: Increased nutrient needs (specify) (kcal and pro) related to increased demand for energy/nutrients as evidenced by wounds. Status: Active nutrition diagnosis Nutrition Prescription: Kcals: [id number] kcal (25-30 kcal/kg using 52.1 kg) Protein (g): 62-78 gm Protein needs based on: 1.2-1.5 gm/kg Fluid (ml): 1 mL/kcal Other (comment): using weight of 52.1 kg Plan/Interventions: Meals and Snacks: Regular Parenteral Nutrition/IV Fluids: 0.9%NaCl @ 75 mL/hr Medical Food Supplements: Magic Cup Will continue to send Glucerna Medical Food/Supplement Freq: will trial Magic Cups Feeding Assistance: Mouth Care, Feeding Position Nutrition-Related Medication Management: Novolog, Protonix Nutrition Education: Supplements Collaboration And Referral Of Nutrition Care: Collaboration with other providers Nutrition Discharge Instructions: Continue to eat foods high in protein. Continue to drink protein shakes 1-2x per day for additional protein. Skyler Bautista is a 84 y.o. female patient. Admit Diagnosis: Wound dehiscence [T81.30XA] Diabetic foot infection (HCC) [E11.628, L08.9] Subjective: Subjective Comment: Pt c/o lights and beeping, reports have to go to the bathroom now Informed RN. Pt reports doesn't like the supplements, refusing meals x2, noted ate orange tal. Anthropometric Measurements: Height: 5' 2 (157.5 cm) Weight: 114 lb (51.7 kg) BMI (Calculated): 20.85 Other (Comment): weight 114 lb (down 6 lbs past month-noted amputation 05-24-25) Food/Nutrition Related History: Dietary Orders Ordered Regular Diet DIET EFFECTIVE NOW 05/24/25 1154 GLUCERNA Therapeutic oral supplement 1 'box' Oral Q AM 1 'box' at 05/27/25 1030 Food Insecurity Within the past 12 months, you worried that your food would run out before you got the money to buymore.: Never true Within the past 12 months, the food you bought just didn't last and you didn't have money to get more.: Never true % Avg Meals Consumed: 0 % (refusal past 2 days) Supplement Acceptance: refusing Tube Feeding?: No TPN?: No Food Allergies: NKFA Level of Assistance: Independent Nutrition Focused Physical Findings: LDAs- Active NG/OG/NJ,Wound,Pressure Injury,or Drain Wound Duration Incision/Wound Skin tear Hand Posterior;Right 29 days Incision/Wound MASD Coccyx Mid gluteal split 22 days Incision/Wound Closed Surgical Leg Upper;Left 5 days Incision/Wound Skin tear Arm Right;Anterior;Upper open, moist, scant bloody draingage. 3 days I/O last 3 completed shifts: In: 774 [P.O.:660; I.V.:24.7; IV Piggyback:89.3] Out: 600 [Urine:600] Edema:Generalized Edema: No Facial Edema: No Right Lower Extremity Edema: Trace Left Lower Extremity Edema: Unable to assess Perineal Edema: +2, Non-pitting Abdomen: Abdominal/GI Abdomen Inspection: Rounded, Soft Bowel Sounds (All Quadrants): Active Abdominal palpation: Soft, Nontender Nausea: No Constipation: No When was last BM? (Date): 05/29/25 Stool Assessment: Stool Occurrence: 1 Stool Appearance: Type 5 [place] Stool Chart, Type 4 [place] Stool Chart Stool Color: Brown Stool Amount: Large Biochemical Data/Medical Tests: Pertinent Meds: reviewed Pertinent Labs: glu 86, 115 Phosph 2.4 Pertinent Medical Tests/Procedures: L AKA 05-24 Clinical Course: Clinical Course: Admitted with L TMA dehiscence. 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 Transferred to MICU 05/26 d/t hypotension. CXR with pulmonary edema. Palliative care following. Wound Care noted. Refusing meals * Stephen Pickard MD - 05/29/2025 11:24 AM EDTAssociated Problem(s): Anemia in other chronic diseases classified elsewhere - b12, folate, iron ok. Trasferrin down - hgb down some this am. Repeat this afternoon * Stephen Pickard MD - 05/29/2025 11:24 AM EDTAssociated Problem(s): Pancytopenia (HCC) - b12, folate, iron ok. Trasferrin down - hgb down some this am. Repeat this afternoon * Stephen Pickard MD - 05/29/2025 11:24 AM EDTAssociated Problem(s): Diabetic foot infection (HCC) - Wound dehiscence over previous left TMA site. ESR, CRP normal. WBC wnl. Afebrile. No acute infection. Not on abx - podiatry saw - vascular following - MRI L foot 7/18 with mild marrow edema of metatarsal distal stump margins without evidence of osteomyelitis - Angiogram performed, minimal blood flow past the knee, recommended AKA - s/p AKA 8/8 - pain remains an issue. No better with CERTIFIED CREDIT COUNSELOR. Will stop that and adjust prns * Stephen Pickard MD - 05/29/2025 11:24 AM EDTAssociated Problem(s): S/P transmetatarsal amputation of foot, left (HCC) - Wound dehiscence over previous left TMA site. ESR, CRP normal. WBC wnl. Afebrile. No acute infection. Not on abx - podiatry saw - vascular following - MRI L foot 7/18 with mild marrow edema of metatarsal distal stump margins without evidence of osteomyelitis - Angiogram performed, minimal blood flow past the knee, recommended AKA - s/p AKA 8/8 - pain remains an issue. No better with CERTIFIED CREDIT COUNSELOR. Will stop that and adjust prns * Stephen Pickard MD - 05/29/2025 11:24 AM EDTAssociated Problem(s): PAD (peripheral artery disease) - vascular following - severe disease - AKA as above * Stephen Pickard MD - 05/29/2025 11:24 AM EDTAssociated Problem(s): Acute respiratory failure with hypoxemia (HCC) - transferred to MICU 05/26 with hypotension and hypoxia - pulm edema on cxr - echo with EF 55-60%, indeterminate diastolic function, pulm pressure 41 mmHg - limited diuresis due to below - satting well now on 2L * Stephen Pickard MD - 05/29/2025 11:24 AM EDTAssociated Problem(s): Acute pulmonary edema (HCC) - transferred to MICU 05/26 with hypotension and hypoxia - pulm edema on cxr - echo with EF 55-60%, indeterminate diastolic function, pulm pressure 41 mmHg - limited diuresis due to below - satting well now on 2L * Stephen Pickard MD - 05/29/2025 11:24 AM EDTAssociated Problem(s): Hypotension - cortisol equivocal but stim ok - improved. * Stephen Pickard MD - 05/29/2025 11:24 AM EDTAssociated Problem(s): Paroxysmal atrial fibrillation (HCC) - 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 - rate controlled on coreg * Stephen Pickard MD - 05/29/2025 11:24 AM EDTAssociated Problem(s): Type 2 diabetes mellitus, without long-term current use of insulin (HCC) - A1c 5.3 - diet controlled - not following FSBS * Stephen Pickard MD - 05/29/2025 11:24 AM EDTAssociated Problem(s): Hypertension associated with diabetes (HCC) - meds held for lows * Stephen Pickard MD - 05/29/2025 11:24 AM EDTAssociated Problem(s): Acute on chronic heart failure with preserved ejection fraction (HCC) - Echo 2023 normal EF. - Euvolemic on exam - repeat echo as above * Stephen Pickard MD - 05/29/2025 11:24 AM EDTAssociated Problem(s): Stage 3a chronic kidney disease (HCC) - Baseline approx 0.9-1.2. - stable * Stephen Pickard MD - 05/29/2025 11:24 AM EDTAssociated Problem(s): 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 - History of CABG - continue lipitor, coreg, ranexa - no chest pain * Stephen Pickard MD - 05/29/2025 11:24 AM EDTAssociated Problem(s): Metabolic encephalopathy - improving today - follow with increase in pain meds * Stephen Pickard MD - 05/29/2025 11:24 AM EDTAssociated Problem(s): Acute cystitis without hematuria - proteus on cx. On zosyn * Stephen Pickard MD - 05/29/2025 11:22 AM EDT Images from the original note were not included. PROGRESS NOTE Assessment & Plan Diabetic foot infection (HCC) S/P transmetatarsal amputation of foot, left (HCC) - Wound dehiscence over previous left TMA site. ESR, CRP normal. WBC wnl. Afebrile. No acute infection. Not on abx - podiatry saw - vascular following - MRI L foot 05/03 with mild marrow edema of metatarsal distal stump margins without evidence of osteomyelitis - Angiogram performed, minimal blood flow past the knee, recommended AKA - s/p AKA 05/24 - pain remains an issue. No better with CERTIFIED CREDIT COUNSELOR. Will stop that and adjust prns PAD (peripheral artery disease) - vascular following - severe disease - AKA as above Acute respiratory failure with hypoxemia (HCC) Acute pulmonary edema (HCC) - transferred to MICU 05/26 with hypotension and hypoxia - pulm edema on cxr - echo with EF 55-60%, indeterminate diastolic function, pulm pressure 41 mmHg - limited diuresis due to below - satting well now on 2L Hypotension - cortisol equivocal but stim ok - improved. Paroxysmal atrial fibrillation (HCC) - 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 - rate controlled on coreg Type 2 diabetes mellitus, without long-term current use of insulin (HCC) - A1c 5.3 - diet controlled - not following FSBS Hypertension associated with diabetes (HCC) - meds held for lows Chronic heart failure with preserved ejection fraction (HCC) - Echo 2023 normal EF. - Euvolemic on exam - repeat echo as above Stage 3a chronic kidney disease (HCC) - Baseline approx 0.9-1.2. - stable 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 - History of CABG - continue lipitor, coreg, ranexa - no chest pain Anemia in other chronic diseases classified elsewhere Pancytopenia (HCC) - b12, folate, iron ok. Trasferrin down - hgb down some this am. Repeat this afternoon Metabolic encephalopathy - improving today - follow with increase in pain meds Acute cystitis without hematuria - proteus on cx. On zosyn Dispo: Handoff Completed: No Disposition Perspective - Medically ready for discharge: No Anticipated ready for discharge timeframe?: 2-3 days Ready for discharge when / if?: pending improved pain Estimated Date of Discharge: 05/31/2025 VTE Prophylaxis: PHARM VTE PROPH NON-CANDIDATE Subjective: +Stump pain. No chest pain or sob. Objective: BP 106/49 (BP Location: Left arm, Patient Position: Semi Fowlers) Pulse 90 Temp 98.2 ??F (36.8 ??C) (Oral) Resp 16 Ht 5' 2 (1.575 m) Wt 114 lb 13.8 oz (52.1 kg) SpO2 95% BMI 21.01 kg/m?? I/O last 3 completed shifts: In: 994.8 [P.O.:300; I.V.:184.5; IV Piggyback:510.3] Out: - Weight: 114 lb 13.8 oz (52.1 kg) Constitutional: Alert and oriented to person, place, and time. Anxious. Cardiovascular: Normal rate and regular rhythm. Exam reveals no friction rub. No murmur heard. Pulmonary/Chest: Effort normal and breath sounds normal. No respiratory distress. There are no wheezes. Abdominal: Soft. Bowel sounds are normal. No distension. There is no tenderness. There is no rebound and no guarding. Musculoskeletal: left AKA Neurological: Grossly normal. Skin: Skin is warm and dry. No erythema. Labs: Laboratory data and diagnostic testing reviewed 05/29/25. Stephen Pickard MD 05/29/2025 11:22 AM * Samia Ortega OT - 05/29/2025 10:35 AM EDT 05/29/25 1035 OT Subjective Note Type Follow Up Treatment Attempt Patient Room/Unit 7995 Therapy delay reason Patient not feeling well (Pt in pain, attempting to rest - pt declines therapy at this time. Will follow up as time allows.) * Rhina Duval RN - 05/29/2025 10:27 AM EDT WOUND CARE Consulted for right nostril and bilateral ears. Pt seen on 5D. Upon assessment, pt with CERTIFIED CREDIT COUNSELOR pump and nasal cannula in place. Bilateral ears are red and blanchable. No redness or irritation noted to nostrils. Recommend to follow medical equipment sales prevention protocol, can utilize oxygen tubing foams or mepilex lite foam. Encourage continuation of preventative interventions such as frequent repositioning/ scheduled turns, as well as offloading bilateral heels. Patient is on a low air loss sleep surface to manage the microclimate of the skin (ensure function is on). Orders updated in [facility]. Will not actively follow at this time, please re-consult with any new concerns. Thanks! * Ramonita Jean PTA - 05/29/2025 10:22 AM EDT 05/29/25 1019 PT Subjective Note Type Follow Up Treatment Attempt Patient Room/Unit 5424 PT Subjective Comments #1 patient reports not feeling well, pain all over declines all attempts at therapy this date, increased pain, will continue to follow Therapy delay reason Patient not feeling well * Kristian Carranza RN - 05/29/2025 6:40 AM EDT Patient is alert, oriented X 3, confused, forgetful, VSS , Afebrile, A fib on monitor. O2 sats >90% on 2L/ NC. Lung sound diminished. Pt has C/O left leg pain managed with CERTIFIED CREDIT COUNSELOR pump infusing Hydromorphone and at midnight she C/O chestpain, code chest pain activated, CT chest, 12 lead EKG done and GI cocktail given, after that pt slept well. Skin assessed - amputation site with noelle, redness to the site, scattered bruising and abrasions. Pt turned every 2 hours. Wound care protocol is followed. PIV on left fore arm C/D/I, NSL, no complication. Double lumen PICC line on right brachial infusing per pump, old drainage, intact, blood return noted. Pt hasn't void since she is transferred here, Bladder armstrong done, 454 ml urine noted, COIN COLLECTOR notified, instructed to do straight cath until bladder scan shows 600 ml urine. NaCl 75 ml/hr started. Bed in low position, alarm is activated. Call light is in reach. Pt is updated with plan of care. Patient arrived on unit and 4 Eyes Skin Assessment within 4 hours completed with Criselda Gold RN. Srinivasan Score: (!) 16 Devices Removed/ Reapplied for Skin Assessment No Wound Present of Arrival: Yes No - Yes Explain: Yes, Wound LDAs Wound Duration Incision/Wound Skin tear Hand Posterior;Right 29 days Incision/Wound MASD Coccyx Mid gluteal split 22 days Incision/Wound Closed Surgical Leg Upper;Left 5 days Incision/Wound Skin tear Arm Right;Anterior;Upper open, moist, scant bloody draingage. 3 days Incision/Wound Other (Comment) Nose Right 1 day Initiate prevention protocol and Consult wound care Dietary Orders Ordered Regular Diet DIET EFFECTIVE NOW 05/24/25 1154 Comments: In addition to above mentioned LDAs, she has redness to B/L ears. Kristian Carranza, MAHENDRA * Leeann Tan MD - 05/29/2025 1:23 AM EDT Images from the original note were not included. Code Chest Pain Leeann Tan MD & members of Family Medicine Residency Team Subjective Skyler Bautista 84 y.o. yo female admitted for Diabetic foot infection (HCC) s/p left AKA 05/24. Per nursing, patient began having chest pain 3 minutes prior. Patient has a prior cardiac history of atrial fibrillation, congestive heart failure, HTN, CAD withh/o CABG. Patient described substernal chest pain that did not radiate, described as pressure and burning. Also had shortness of breath with no increase in oxygen requirement and dizziness. Objective Vitals: 05/29/25 0030 05/29/25 0033 05/29/25 0048 05/29/25 0121 BP: (!) 148/98 (!) 146/93 BP Location: Patient Position: Pulse: 113 Resp: Temp: 98.2 ??F (36.8 ??C) TempSrc: SpO2: Weight: Height: Constitutional: alert and in moderate distress Lungs: normal effort and symmetrical chest expansion; equal lung sounds bilaterally with no rales, rhonchi appreciated CV: S1 and S2 normal, no murmurs noted, irregularly irregular rhythm with rate 110s Abdomen: mild epigastric tenderness Extremities: left AKA, right leg with normal coloration, warm Neuro: Grossly normal A&P Acute chest pain Stat EKG without acute ischemic changes Given recent surgery, AF with elevated HR, shortness of breath, CTA to r/o PE. CTA negative for PE but with cardiomegaly and pulmonary vascular congestion. Satting 100% on 2L NC with no increased O2 requirement Previous Hgb noted to be 7.5 therefore with nonischemic EKG did not give ASA pending repeat Hgb. Chest pain improved with GI cocktail Labs ordered: trending troponins, BMP, and H+H Nursing to notify primary. STAT EKG at bedside noting: Diagnostic Findings: Intervals reviewed Rhythm: atrial fibrillation - controlled Rate: tachycardia Cecil: normal Ectopy: premature ventricular contractions (infrequent) Conduction: normal ST Segments: no acute change T Waves: no acute change Q Waves: v1 and v2 Clinical Impression: atrial fibrillation (chronic) Leeann Tan MD 05/29/2025 Cosigned by Nigel Kang MD at 05/29/2025 2:41 PM EDT Associated attestation - Nigel Kang MD - 05/29/2025 2:41 PM EDT I agree with resident physician/house physician management of this situation. I defer to the patient's attending physician for further management of this patient. * Tamia Figueroa BSW - 05/28/2025 4:32 PM EDT Sw - Discharge remains undetermined at this time. Noted that palliative is working with pt and family on goals of care. POD # 3 AKA, pt has received blood products, and remains on CERTIFIED CREDIT COUNSELOR for pain, and multiple antibiotics. Pt meets criteria for LTACH level of care. Sw has sent proactive referral to LTACH to evaluate for appropriateness. Sw has sent family information on LTACH level of care, Sw met with pt and resources on LTACH level of care. Proactive referral sent to ltach to evaluate for appropriateness. * Marj Peña [facility] - 05/28/2025 2:14 PM EDT Pharmacy Note - Vancomycin Therapy S: Skyler Bautista is a(n) 84 y.o. female with diagnosis of AMS, hypotension, and fevers on 05/26, s/p left AKA on 05/24. Allergies: Lidocaine Day 3 of pharmacy managed vancomycin therapy. Other antimicrobials include: piperacillin/tazobactam 05/26- O: Temp Min: 98.5 ??F (36.9 ??C) Max: 99.7 ??F (37.6 ??C) Recent Labs 05/26/25 1300 05/27/25 0325 05/28/25 0535 WBC 4.8 5.1 5.8 BUN 22 21 19 CREATININE 0.94 0.92 1.00 Estimated Creatinine Clearance: 35.3 mL/min (by C-G formula based on SCr of 1 mg/dL). Recent Labs 05/27/25 1201 VANCORANDOM 8.4 Recent Labs 05/26/25 1300 PROCLCTNIN 0.08 Recent Labs 05/26/25 1300 LACTA 1.5 I/O last 3 completed shifts: In: 980 [P.O.:837; IV Piggyback:143] Out: 935 [Urine:935] No intake/output data recorded. Height: 5' 2 (157.5 cm) Weight: 120 lb (54.4 kg) Culture & Sensitivities: Results for orders placed or performed during the hospital encounter of 04/30/25 (from the past 2 weeks) URINE CULTURE (NO STAIN) Collection Time: 05/23/25 3:31 PM Specimen: Urine, Clean Catch Result Value Ref Range Culture Positive Growth (A) Culture >100,000 CFU/mL Proteus mirabilis Culture 50,000 CFU/mL Escherichia coli Susceptibility Escherichia coli - SUSCEPTIBILITY RESULT Amikacin Amoxicillin/Clavulanate <=8/4 Susceptible ug/mL Ampicillin >16 Resistant ug/mL Ampicillin/Sulbactam 16/8 Intermediate ug/mL Aztreonam <=4 Susceptible ug/mL Cefazolin <=2 Susceptible ug/mL Cefepime Cefotaxime Cefoxitin <=8 Susceptible ug/mL Ceftazidime Ceftazidime/Avibactam Ceftolozane/Tazobactam Ceftriaxone Cefuroxime Ciprofloxacin <=0.25 Susceptible ug/mL Ertapenem <=0.5 Susceptible ug/mL Gentamicin <=2 Susceptible ug/mL Imipenem <=1 Susceptible ug/mL Levofloxacin <=0.5 Susceptible ug/mL Meropenem <=1 Susceptible ug/mL Meropenem/Vaborbactam Minocycline Moxifloxacin Nitrofurantoin <=32 Susceptible ug/mL Piperacillin/Tazobactam <=8 Susceptible ug/mL Tetracycline >8 Resistant ug/mL Tigecycline Tobramycin <=2 Susceptible ug/mL Trimethoprim/Sulfamethoxazole >2/38 Resistant ug/mL Proteus mirabilis - SUSCEPTIBILITY RESULT Amikacin Amoxicillin/Clavulanate Ampicillin >16 Resistant ug/mL Ampicillin/Sulbactam Aztreonam 8 Resistant ug/mL Cefazolin >16 Resistant ug/mL Cefepime >16 Resistant ug/mL Cefotaxime >32 Resistant ug/mL Cefoxitin <=8 Susceptible ug/mL Ceftazidime <=1 Resistant ug/mL Ceftazidime/Avibactam Ceftolozane/Tazobactam Ceftriaxone >32 Resistant ug/mL Cefuroxime >16 Resistant ug/mL Ciprofloxacin >2 Resistant ug/mL Ertapenem <=0.5 Susceptible ug/mL Gentamicin <=2 Susceptible ug/mL Imipenem Levofloxacin >4 Resistant ug/mL Meropenem <=1 Susceptible ug/mL Meropenem/Vaborbactam Minocycline Moxifloxacin Nitrofurantoin Piperacillin/Tazobactam <=8 Susceptible ug/mL Tetracycline Tigecycline Tobramycin <=2 Susceptible ug/mL Trimethoprim/Sulfamethoxazole >2/38 Resistant ug/mL URINE CULTURE (NO STAIN) Collection Time: 05/26/25 11:16 AM Specimen: Urine, Straight Catheter Result Value Ref Range Culture Positive Growth (A) Culture 3,000 CFU/mL Proteus mirabilis BLOOD CULTURE (NO STAIN) Collection Time: 05/26/25 11:58 AM Specimen: Blood, Venous Result Value Ref Range Culture Result No Growth at 48 hours. BLOOD CULTURE (NO STAIN) Collection Time: 05/26/25 11:58 AM Specimen: Blood, Venous Result Value Ref Range Culture Result No Growth at 48 hours. STAPHYLOCOCCUS AUREUS SCREEN Collection Time: 05/26/25 4:24 PM Specimen: Nares; Swab Result Value Ref Range Staph aureus PCR Not Detected Not Detected MRSA PCR Not Detected Not Detected A/P: Physician orders and progress notes reviewed. Renal function is stable. Vancomycin therapy previously maintained with intermittent/pulse dosing. Vancomycin level resulted as 8.4 mcg/mL (05/27 at 1201). Prior dose administered on 05/26 at 1701. Modified vancomycin therapy to 750 mg every 24 hours. This dosing regimen is estimated to result in AUC of 549 mg??hr/L. Will check vancomycin levels on 05/29 at 0600 and 1100 prior to 3rd dose of scheduled vancomycin therapy. Other labs: BMP and CBC on 05/28. Pharmacy will continue to follow patient for changes in renal function, efficacy, and signs of toxicity. Thank you! Marj Peña, PharmD * Rhina Steen DO - 05/28/2025 11:32 AM EDT Palliative Care Progress Note Consult Location: [facility] Length of Stay: 27 Assessment: Skyler Bautista is a 84 y.o. female with hx of PVD who presented to ER with dehiscence of L TMA. Initial surgery on 03/09 and revision on 03/18 and presented with discussion of L AKA. Ultimately, patient had L AKA on 05/24. Our team has been following for ongoing goals of care and support. Patient is now POD 3. Decisional Capacity:Fully Decisional Based on determination of decisional capacity, health care surrogateagent: Inactive Advance Directive Document: No documents present in chart, education provided, documents pending Name (s): Adult children--two sons Additional information: Surrogate by: SUMEET Palliative Plan of Care: Goals: Goals of care discussion yesterday with change in code status. Follow up today and patient reports pain in left lower extremity. Code: Full Code - needs reviewed. Symptom Needs: Per Primary. Concern for phantom limb pain discussed with primary and critical care team. Pain: Neurontin 300mg nightly + Acetaminophen prn + Oxy-IR 15mg q4 hrs prn + Hydromorphone CERTIFIED CREDIT COUNSELOR Pump(started today per ICU team) Opioid Induced Constipation: Polyethylene glycol 17 g BID PRN Psychosocial distress: anticipatory grief, change in QoL and loss on independence. Spiritual distress: See [facility] note for additional details. [facility] will continue to follow along. Subjective: Patient seen in follow up today after goals of care discussion yesterday. Patient reports pain at her surgical site. She states it feels like a burning. Spoke with family away from bedside and they state patient is more confused today. Patient called family and thought she was at home. Objective: Vitals: Vitals: 05/28/25 1100 BP: 113/59 Pulse: 103 Resp: 16 Temp: 99.2 ??F (37.3 ??C) SpO2: 98% Physical Exam: General: sitting up in bed, able to converse Medically Ready for discharge per Palliative Care Standpoint?: Yes Will follow-up in clinic?: No Medication recommendations?: None Prescribing Care team at discharge?: Primary Will sign off?: No Collaborated with Dr. Blackwood and Dr. Pickard. Thank you for the opportunity to participate in the care of this patient. We will follow along withyou. Please contact the palliative care service team with questions or concerns. Rhina Steen DO - Palliative Care Services Time-Based Billing Statement Activities performed during this time include: Reviewing labs, Performing the appropriate exam, Counseling and educating, Referring and communicating with another professional, and Documenting clinical information in the EHR The total time documented above did not include the following activities which were also performed on this calendar day: Advance Care Planning Cosigned by Robby Thomas MD at 05/28/2025 1:38 PM EDT Associated attestation - Robby Thomas MD - 05/28/2025 1:38 PM EDT Patient seen with our HPM fellow and Hand Stemmerankush Rider and agree with Dr. Steen's notes. Patient with significant post op pain and this is being managed by ICU and hospitalist teams. Suggest potential increase in her gabapentin in the next few days. Time spent today with review of records, seeing patient and coordinating care = 36 minutes independent of teaching time. * Aileen Blackwood MD - 05/28/2025 11:00 AM EDT Images from the original note were not included. 05/28/2025 Aileen Blackwood MD Skyler Bautista is a(n)84 y.o. female who is being seen for altered mental status, hypotension Chief Complaint: Wound dehiscence Assessment/Plan: 1. Acute metabolic encephalopathy, improving. Was likely secondary to hypotension and possible medication effect. Mentation is improving, pain control now the issue again. Will start CERTIFIED CREDIT COUNSELOR today to attempt to quantify narcotic requirement. 2. Hypotension, improved. Stable 3. History of HFpEF. 4. Peripheral artery disease, holding full anticoagulation until hemoglobin stabilizes. 5. Anemia, still downtrending. Received 1 unit of packed red blood cells 05/26. 6. Acute hypoxemic respiratory failure, improved/resolved, now on room air. 7. CKD, creatinine is stable, continue to avoid nephrotoxins 8. Type 2 diabetes: Continue ICU state pilot 9. 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 ICU Standards of Care Restraints: none VTE prophylaxis: Heparin gtt -- on hold pending H/H stabilization PUD PPx: PPI Glucose control: SSI Diet: Reg Lines/tubes/drains: PICC Chlorhexidine daily HOB Elevated Code Status: DNR Limited Disposition: The patient is no longer on vasoactive drips, her mental status is improved. Her hypotension is improved. She could transfer out of the ICU. If she transfers, she needs to go somewhere that can manage her CERTIFIED CREDIT COUNSELOR. When she transfers, critical care will sign off. Please Greatly appreciate palliative's assistance with family discussion and CODE STATUS determination. AILEEN BLACKWOOD MD, MPH Critical Care Medicine Catheters/Line/Tubes: CLABSI Prevention CHG Application: Completed (05/28/25 0600) Central Line LDAs PICC Line Duration PICC Double Lumen 05/26/25 Right Brachial 2 days PICC Double Lumen 05/26/25 Right Brachial-Line necessity (Daily): Poor IV access or extravasation/infiltrates with symptoms x3 Appropriate to DC central line (use PIV instead)? No, access Garrido Catheter: CAUTI Prevention Garrido Cath LDA Garrido Catheter Duration Urethral Catheter (Garrido) 05/26/25 1815 Temperature probe 16 fr 2 days Ana Care/Garrido Care: Ana wipes (05/28/25 0800) Appropriate to DC garrido (alternatives: external catheter, urinal, etc)? Yes- initiate removal/voiding protocol Restraints Restraints: no Most Recent Restraint Order (From admission, onward) None Subjective: My pain is worse than yesterday Objective: Physical Examination: Vitals: BP 128/76 Pulse 112 Temp 98.9 ??F (37.2 ??C) Resp 13 Ht 5' 2 (1.575 m) Wt 120 lb(54.4 kg) SpO2 96% BMI 21.95 kg/m?? BP Min: 89/65 Max: 140/80 - Pulse Av.6 Min: 78 Max: 112 I/O last 3 completed shifts: In: 980 [P.O.:837; IV Piggyback:143] Out: 935 [Urine:935] Wt Readings from Last 2 Encounters: 05/11/25 120 lb (54.4 kg) 04/18/25 137 lb (62.1 kg) Constitutional: No acute distress, alert, interactive HEENT: GAGE. Neck supple. Cardiovascular: tachycardic rate, regular rhythm and intact distal pulses. Normal perfusion Pulmonary/Chest: Effort normal. No stridor. No respiratory distress. No wheezes. No rales. GI/Abdominal: Soft. Bowel sounds are normal. Exhibits no distension and no mass. No tenderness. Extremities: Left AKA, no significant swelling or edema. The dressing is intact. Neurological: Nonfocal. Alert and oriented to person, place, and time. Skin: Limited due to patient not being fully undressed. Skin is warm. No rash noted on exposed areas of skin. Labs: ABG Recent Labs 05/26/25 1301 PH 7.41 PCO2 32* PO2 75* O2SAT 95.9 INSPIREDO2 2L CBC Recent Labs 05/27/25 0325 05/27/25 0956 05/27/25 1824 05/28/25 0535 WBC 5.1 -- -- 5.8 HGB 8.0* < > 7.7* 7.3* HCT 24.5* < > 23.6* 24.2* PLT 73* -- -- 77* < > = values in this interval not displayed. Other Labs Recent Labs 05/22/25 0642 05/25/25 0650 05/26/25 1411 05/26/25 1617 05/27/25 0325 05/28/25 0535 NA 138 < > -- -- 139 138 K 4.1 < > -- -- 4.1 3.8 CL 108* < > -- -- 109* 109* CO2 23 < > -- -- 20* 20* BUN 23 < > -- -- 21 19 CREATININE 0.99 < > -- -- 0.92 1.00 ALT -- -- 9 -- -- -- AST -- -- 16 -- -- -- ALKPHOS -- -- 103 -- -- -- BILIDIR -- -- 0.4* -- -- -- PROT -- -- 4.9* -- -- -- INR 1.36* -- -- 1.38* -- -- < > = values in this interval not displayed. Blood Glucose Recent Labs 05/27/25 1125 05/27/25 1802 05/27/25 2312 05/28/25 0521 05/28/25 0535 GLU -- -- -- -- 141* FSBS 181* 155* 129* 130* -- Insulin Drip: No Imaging: None new * Marcell Lopez RN - 05/28/2025 10:44 AM EDT Daily Status Update Add dilaudid CERTIFIED CREDIT COUNSELOR Transfer? Family Does the patient have family present? Yes, offer family to join rounds Ventilator SpO2: 96 % (05/28/25 0400) Ventilator: No Airway LDAs None Quintanilla Score: (not recorded) No results for input(s): PFRATIO in the last 72 hours. Pain Pain controlled in the last 24 hours: No: adding CERTIFIED CREDIT COUNSELOR Pain/Sedation Medications fentaNYL (SUBLIMAZE) injection 50 mcg EVERY 2 HOURS PRN oxyCODONE (OXY-IR) immediate release tablet 15 mg EVERY 4 HOURS PRN acetaminophen (TYLENOL) tablet 650 mg EVERY 4 HOURS PRN Placed in Or Linked Group acetaminophen (TYLENOL) suppository 650 mg EVERY 4 HOURS PRN Placed in Or Linked Group acetaminophen (OFIRMEV) infusion 1,000 mg EVERY 6 HOURS PRN Placed in Or Linked Group Pain Patient Currently in Pain: Yes (05/27/251999) Appropriate Pain Scale For Patient: 0-10 Scale (05/27/25 0607) Patient's Stated Pain Goal: no pain (05/25/25 1238) Faces Scale: 6 (05/25/25 1238) Pain 0-10 Scale: worse pain imagined (05/28/2543) Pain Type: Acute (05/27/25 1516) Pain Location: Leg (05/28/2543) Pain Orientation: Left (05/28/2543) Pain Quality: Discomfort;Constant (05/28/2543) Onset pain: Past week (05/28/2543) Effect of Pain on Daily Activities: No adverse effects (05/28/2543) Pain Intervention(s): Medication (see eMar) (05/28/25 0044) Post Intervention Reassessment: 8 (05/27/25 1604) Critical-Care Pain Observation Tool Post Intervention Reassessment: 8 (05/27/25 1604) Non-Verbal Pain Pain Intervention(s): Medication (see eMar) (05/28/25 0044) Faces Scale Faces Scale: 6 (05/25/25 1238) Pain Intervention(s): Medication (see eMar) (05/28/25 0044) Delirium Is the patient experiencing s/s of delirium? Yes RASS Score: 0 (05/27/25 1600) CAM Result: Negative (05/27/25 0800) Progressive Mobility Patient's Current Mobility Score: 5 RASS Score: 0 PT/OT Orders (From admission, onward) Start Ordered 05/07/25 1110 IP Consult to Occupational Therapy - Eval & Treat ONE TIME Question: Occupational Therapy Protocol (CHOOSE ONE): Answer: Patient from Skilled LOC and plan is to return to Skilled 05/07/25 1109 05/02/25 0957 IP consult to Physical Therapy-Eval & Tr ONE TIME 05/02/25 0956 PT Frequency: 3-5x/week Plan: Progress mobility/mobilize per orders today Blood Glucose Recent Labs 05/27/25 0325 05/27/25 0509 05/27/25 1125 05/27/25 1802 05/27/25 2312 GLU 157* -- -- -- -- FSBS -- 139* 181* 155* 129* Insulin Drip: No Basal Insulin Orders: no Prandial Insulin Orders: no Correctional Algorithm: Medium (CF 25) Plan: Continue current treatment plan - glucose controlled Nutrition Last 4 Weights 04/30/2025 1530 04/30/2025 2242 05/11/2025 2153 Weight: 117 lb (53.1 kg) 120 lb 11.2 oz (54.7 kg) 120 lb (54.4 kg) Net weight change in lbs since admission: 0 Ordered Tube Feeding Route: There are no questions and answers to display. There are no questions and answers to display. Diet Order: REGULAR DIET ICU Length of Stay: 2 days Plan: Continue current diet order Speech/Swallow Screen Bedside Swallow Screen Result: Communication Needs: No Bowel Regimen When was last BM? (Date): 05/27/25 Has patient had BM < or = 24 hours ago? Yes Bowel Regimen docusate sodium (COLACE) capsule 100 mg 2 TIMES DAILY PRN polyethylene glycol (GLYCOLAX, MIRALAX) packet 17 g 2 TIMES DAILY PRN Plan: Bowel regimen already ordered Wound Care Srinivasan Scale Score: (!) 13 Prevention options initiated?: Yes Wound LDAs Wound Duration Incision/Wound Skin tear Hand Posterior;Right 28 days Incision/Wound MASD Coccyx Mid gluteal split 21 days Incision/Wound Closed Surgical Leg Upper;Left 4 days Incision/Wound Skin tear Arm Right;Anterior;Upper open, moist, scant bloody draingage. 2 days Wound Care Consult (From admission, onward) Start Ordered 05/07/25 1235 Inpatient consult to wound care for:Other (comment); gluteal split- treatment cavilon(Wound Care Consult / Referral Panel) ONE TIME Provider: (Not yet assigned) Question Answer Comment Reason for Wound Consult Other (comment) Location? gluteal split- treatment cavilon 05/07/25 1235 05/01/25 0101 Inpatient consult to wound care for:Other (comment); Cavillon applied to coccyx, heels, elbows for prevention (Wound Care Consult / Pressure Injury Protocol Panel) ONE TIME Provider: (Not yet assigned) Question Answer Comment Reason for Wound Consult Other (comment) Location? Cavillon applied to coccyx, heels, elbows for prevention 05/01/25 0101 Foam Border: Clean, Dry and Intact, Assessed skin under foam boarder Foam Border Applied/Changed Location: Sacrum/coccyx, Right heel CLABSI Prevention CHG Application: Completed (05/27/25 0000) Central Line LDAs PICC Line Duration PICC Double Lumen 05/26/25 Right Brachial 2 days PICC Double Lumen 05/26/25 Right Brachial-Line necessity (Daily): Poor IV access or extravasation/infiltrates with symptoms x3 Appropriate to DC central line (use PIV instead)? No, poor access Intravenous Fluids Appropriate to DC IV fluids? N/A (no IVF) CAUTI Prevention Garrido Cath LDA Garrido Catheter Duration Urethral Catheter (Garrido) 05/26/25 1815 Temperature probe 16 fr 2 days Ana Care/Garrido Care: Foam cleanser (05/27/25 0000) Appropriate to DC garrido (alternatives: external catheter, urinal, etc)? Yes- initiate removal/voiding protocol Restraints Restraints: no Most Recent Restraint Order (From admission, onward) None LTACH Is this patient LTACH appropriate? No: Will continue to follow * Stephen Pickard MD - 05/28/2025 8:08 AM EDTAssociated Problem(s): Diabetic foot infection (HCC) - Wound dehiscence over previous left TMA site. ESR, CRP normal. WBC wnl. Afebrile. No acute infection. Not on abx - podiatry saw - vascular following - MRI L foot 7/18 with mild marrow edema of metatarsal distal stump margins without evidence of osteomyelitis - Angiogram performed, minimal blood flow past the knee, recommended AKA - s/p AKA 88 - pain remains an issue. Will adjust meds as BP better. * Stephen Pickard MD - 05/28/2025 8:08 AM EDTAssociated Problem(s): S/P transmetatarsal amputation of foot, left (HCC) - Wound dehiscence over previous left TMA site. ESR, CRP normal. WBC wnl. Afebrile. No acute infection. Not on abx - podiatry saw - vascular following - MRI L foot 7/18 with mild marrow edema of metatarsal distal stump margins without evidence of osteomyelitis - Angiogram performed, minimal blood flow past the knee, recommended AKA - s/p AKA 8 - pain remains an issue. Will adjust meds as BP better. * Stephen Pickard MD - 05/28/2025 8:08 AM EDTAssociated Problem(s): PAD (peripheral artery disease) - vascular following - severe disease - AKA as above * Stephen Pickard MD - 05/28/2025 8:08 AM EDTAssociated Problem(s): Acute respiratory failure with hypoxemia (HCC) - transferred to MICU 05/26 with hypotension and hypoxia - pulm edema on cxr - echo with EF 55-60%, indeterminate diastolic function, pulm pressure 41 mmHg - limited diuresis due to below - satting well now on 2L * Stephen Pickard MD - 05/28/2025 8:08 AM EDTAssociated Problem(s): Acute pulmonary edema (HCC) - transferred to MICU 05/26 with hypotension and hypoxia - pulm edema on cxr - echo with EF 55-60%, indeterminate diastolic function, pulm pressure 41 mmHg - limited diuresis due to below - satting well now on 2L * Stephen Pickard MD - 05/28/2025 8:08 AM EDTAssociated Problem(s): Hypotension - cortisol equivocal but stim ok - improved. * Stephen Pickard MD - 05/28/2025 8:08 AM EDTAssociated Problem(s): Paroxysmal atrial fibrillation (HCC) - 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 - rate controlled on coreg * Stephen Pickard MD - 05/28/2025 8:08 AM EDTAssociated Problem(s): Type 2 diabetes mellitus, without long-term current use of insulin (HCC) - A1c 5.3 - diet controlled - not following FSBS * Stephen Pickard MD - 05/28/2025 8:08 AM EDTAssociated Problem(s): Hypertension associated with diabetes (HCC) - meds held for lows * Stephen Pickard MD - 05/28/2025 8:08 AM EDTAssociated Problem(s): Acute on chronic heart failure with preserved ejection fraction (HCC) - Echo 2023 normal EF. - Euvolemic on exam - repeat echo as above * Stephen Pickard MD - 05/28/2025 8:08 AM EDTAssociated Problem(s): Stage 3a chronic kidney disease (HCC) - Baseline approx 0.9-1.2. - stable * Stephen Pickard MD - 05/28/2025 8:08 AM EDTAssociated Problem(s): 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 - History of CABG - continue lipitor, coreg, ranexa - no chest pain * Stephen Pickard MD - 05/28/2025 8:08 AM EDTAssociated Problem(s): Anemia in other chronic diseases classified elsewhere - low but stable - b12, folate, iron ok. Trasferrin down - hgb trending down again. No obvious bleeding - follow trend * Stephen Pickard MD - 05/28/2025 8:08 AM EDTAssociated Problem(s): Pancytopenia (HCC) - low but stable - b12, folate, iron ok. Trasferrin down - hgb trending down again. No obvious bleeding - follow trend * Stephen Pickard MD - 05/28/2025 8:08 AM EDTAssociated Problem(s): Metabolic encephalopathy - improving today - will add back some of her home meds that could have contributed * Stephen Pickard MD - 05/28/2025 8:08 AM EDTAssociated Problem(s): Acute cystitis without hematuria - proteus on cx. On zosyn * Stephen Pickard MD - 05/28/2025 8:05 AM EDT Images from the original note were not included. PROGRESS NOTE Assessment & Plan Diabetic foot infection (HCC) S/P transmetatarsal amputation of foot, left (HCC) - Wound dehiscence over previous left TMA site. ESR, CRP normal. WBC wnl. Afebrile. No acute infection. Not on abx - podiatry saw - vascular following - MRI L foot 05/03 with mild marrow edema of metatarsal distal stump margins without evidence of osteomyelitis - Angiogram performed, minimal blood flow past the knee, recommended AKA - s/p AKA 05/24 - pain remains an issue. Will adjust meds as BP better. PAD (peripheral artery disease) - vascular following - severe disease - AKA as above Acute respiratory failure with hypoxemia (HCC) Acute pulmonary edema (HCC) - transferred to MICU 05/26 with hypotension and hypoxia - pulm edema on cxr - echo with EF 55-60%, indeterminate diastolic function, pulm pressure 41 mmHg - limited diuresis due to below - satting well now on 2L Hypotension - cortisol equivocal but stim ok - improved. Paroxysmal atrial fibrillation (HCC) - 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 - rate controlled on coreg Type 2 diabetes mellitus, without long-term current use of insulin (HCC) - A1c 5.3 - diet controlled - not following FSBS Hypertension associated with diabetes (HCC) - meds held for lows Chronic heart failure with preserved ejection fraction (HCC) - Echo 2023 normal EF. - Euvolemic on exam - repeat echo as above Stage 3a chronic kidney disease (HCC) - Baseline approx 0.9-1.2. - stable 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 - History of CABG - continue lipitor, coreg, ranexa - no chest pain Anemia in other chronic diseases classified elsewhere Pancytopenia (HCC) - low but stable - b12, folate, iron ok. Trasferrin down - hgb trending down again. No obvious bleeding - follow trend Metabolic encephalopathy - improving today - will add back some of her home meds that could have contributed Acute cystitis without hematuria - proteus on cx. On zosyn Dispo: Handoff Completed: No Disposition Perspective - Medically ready for discharge: No Anticipated ready for discharge timeframe?: 2-3 days Ready for discharge when / if?: pain controlled. Estimated Date of Discharge: 05/30/2025 VTE Prophylaxis: PHARM VTE PROPH NON-CANDIDATE Subjective: Pain in leg. No chest pain. Minimal sob. Objective: BP 133/80 Pulse 108 Temp 99.2 ??F (37.3 ??C) Resp 25 Ht 5' 2 (1.575 m) Wt 120 lb (54.4 kg) SpO2 96% BMI 21.95 kg/m?? I/O last 3 completed shifts: In: 980 [P.O.:837; IV Piggyback:143] Out: 935 [Urine:935] Weight: 120 lb (54.4 kg) Constitutional: Alert and oriented to person, place, and time. Anxious, uncomfortable. Cardiovascular: Normal rate and regular rhythm. Exam reveals no friction rub. No murmur heard. Pulmonary/Chest: Effort normal. Breath sounds decreased. No respiratory distress. There are no wheezes. Abdominal: Soft. Bowel sounds are normal. No distension. There is no tenderness. There is no rebound and no guarding. Musculoskeletal: left AKA Neurological: Grossly normal. Skin: Skin is warm and dry. No erythema. Labs: Laboratory data and diagnostic testing reviewed 05/28/25. Stephen Pickard MD 05/28/2025 8:05 AM * Adry Alcazar - 05/27/2025 5:15 PM EDT 05/27/25 1600 Palliative interventions Spiritual support Spiritual support and counseling by palliative professional for patient;Spiritualsupport and counseling by palliative professional for caregiver/family members Palliative Care Hand Stemmer Pastoral Care Interventions Spiritual-emotional support;Prayer Spiritual acuity Normal complexity Care Plan Follow up 1-2x/week Length of time in minutes spent with pt/family/chart review 15 Referred By ([facility] Hand Stemmer follow up visit.) Palliative Care counter tacker follow up visit post surgery. Patient's son/Edgar and DIL were at bedside. Patient expressed relief that she is past the decision making about whether or not to have surgery, and the surgery itself. She stated that she feels good , but still does not want to look at her legwhen the bandages are changed. Patient reaffirmed her deep treasure that God has gotten her through the surgery, as well as gratitudefor her family's support. Commissioned Sales Associate prayed with pt and family and will continue to follow. Adry Alcazar, [facility] Hand Stemmer, Palliative Care * Robby Thomas MD - 05/27/2025 3:40 PM EDT Palliative Care Progress Note Consult Location: [facility] Length of Stay: 26 Assessment: Skyler Bautista is a 84 y.o. female with hx of PVD who presented to ER with dehiscence of L TMA. Initial surgery on 03/09 and revision on 03/18 and presented with discussion of L AKA. Ultimately, patient had L AKA on 05/24. Our team has been following for ongoing goals of care and support. Patient is now POD 3. Decisional Capacity:Fully Decisional Based on determination of decisional capacity, health care surrogateagent: Inactive Advance Directive Document: No documents present in chart, education provided, documents pending Name (s): Adult children--two sons Additional information: Surrogate by: SUMEET Palliative Plan of Care: Met with patient and her son Edgar and Jo Ann as well as sister Sarah and her Gerry. Discussed that current goals are restorative. We discussed her transfer to ICU and what ifs . We discussed code status extensively and what it would mean in the context of her medical situation. Ultimately, patient and family agree to DNR/DNI. She has had experience around code situation with her who was resuscitated and had to be removed from life support. Code status is changed to DNR/DNI. Subjective: Voluntary goals of care discussion with patient and family as above. Patient is feeling better and working with therapy and looking forward to rehab eventually. Objective: Vitals: Vitals: 05/27/25 1500 BP: 107/57 Pulse: 92 Resp: 12 Temp: 98.5 ??F (36.9 ??C) SpO2: 100% Physical Exam: Alert, oriented, comfortable appearing Medically Ready for discharge per Palliative Care Standpoint?: Yes Will follow-up in clinic?: No Medication recommendations?: no Prescribing Care team at discharge?: no Will sign off?: No Collaborated with Dr. Blackwood and Dr. Pickard Thank you for the opportunity to participate in the care of this patient. We will follow along withyou. Please contact the palliative care service team with questions or concerns. ROBBY THOMAS MD - Palliative Care Services Activities performed during this time include: Reviewing labs, Counseling and educating, Referring and communicating with another professional, Documenting clinical information in the EHR, and Care coordination The total time documented above did not include the following activities which were also performed on this calendar day: Advance Care Planning * Aileen Blackwood MD - 05/27/2025 2:39 PM EDT Images from the original note were not included. 05/27/2025 Aileen Blackwood MD Skyler Bautista is a(n)84 y.o. female who is being seen for hypotension, altered mental status Chief Complaint: Wound dehiscence Assessment/Plan: 1. Acute metabolic encephalopathy, improving. Was likely secondary to hypotension and possible medication effect. Pain control was discontinued yesterday, however restarted today due to issues with pain. 2. Hypotension, improved. Now a bit hypertensive. 3. History of HFpEF. 4. Peripheral artery disease, holding full anticoagulation until hemoglobin stabilizes. 5. Anemia, had been downtrending. Received 1 unit of packed red blood cells yesterday. 6. Acute hypoxemic respiratory failure, improved/resolved, now on room air. 7. CKD, creatinine is stable, continue to avoid nephrotoxins 8. Type 2 diabetes: Continue ICU state pilot 9. 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 ICU Standards of Care Restraints: none VTE prophylaxis: Heparin gtt -- on hold pending H/H stabilization PUD PPx: PPI Glucose control: SSI Diet: NPO Lines/tubes/drains: PICC Chlorhexidine daily HOB Elevated Code Status: Full Code Disposition: The patient is critically ill. Will monitor the patient in the ICU to implement the above mentioned plan Critical Care Time: 32 minutes of critical care time spent evaluating the patient, reviewing the data and formulating a plan exclusive of all other procedures. AILEEN BLACKWOOD MD, MPH Critical Care Medicine Catheters/Line/Tubes: CLABSI Prevention CHG Application: Completed (05/27/25 0000) Central Line LDAs PICC Line Duration PICC Double Lumen 05/26/25 Right Brachial 1 day PICC Double Lumen 05/26/25 Right Brachial-Line necessity (Daily): Poor IV access or extravasation/infiltrates with symptoms x3 Appropriate to DC central line (use PIV instead)? No, access Garrido Catheter: CAUTI Prevention Garrido Cath LDA Garrido Catheter Duration Urethral Catheter (Garrido) 05/26/25 1815 Temperature probe 16 fr 1 day Ana Care/Garrido Care: Foam cleanser (05/27/25 0000) Appropriate to DC garrido (alternatives: external catheter, urinal, etc)? Yes- initiate removal/voiding protocol Restraints Restraints: no Most Recent Restraint Order (From admission, onward) None Subjective: Patient more lucid and interactive than reported, complains of pain in her leg. Objective: Physical Examination: Vitals: BP 125/46 Pulse 82 Temp 98.4 ??F (36.9 ??C) Resp 21 Ht 5' 2 (1.575 m) Wt 120 lb (54.4 kg) SpO2 100% BMI 21.95 kg/m?? BP Min: 82/43 Max: 159/82 - Pulse Av.2 Min: 67 Max: 127 I/O last 3 completed shifts: In: 1186.4 [P.O.:50; I.V.:278.2; IV Piggyback:858.2] Out: 3275 [Urine:3275] Wt Readings from Last 2 Encounters: 05/11/25 120 lb (54.4 kg) 04/18/25 137 lb (62.1 kg) Constitutional: No acute distress, HEENT: GAGE. Neck supple. Cardiovascular: Normal rate, regular rhythm and intact distal pulses. Normal perfusion Pulmonary/Chest: Effort normal. No stridor. No respiratory distress. No wheezes. No rales. GI/Abdominal: Soft. Bowel sounds are normal. Exhibits no distension and no mass. No tenderness. Extremities: Left AKA, no significant swelling or edema. The dressing is intact. Neurological: Nonfocal. Alert and oriented to person, place, and time. Skin: Limited due to patient not being fully undressed. Skin is warm. No rash noted on exposed areas of skin. Labs: ABG Recent Labs 05/26/25 1301 PH 7.41 PCO2 32* PO2 75* O2SAT 95.9 INSPIREDO2 2L CBC Recent Labs 05/26/25 1300 05/26/25 1411 05/27/25 0325 05/27/25 0956 WBC 4.8 -- 5.1 -- HGB 7.4* < > 8.0* 8.4* HCT 23.0* < > 24.5* 26.3* PLT 65* -- 73* -- < > = values in this interval not displayed. Other Labs Recent Labs 05/22/25 0642 05/25/25 0650 05/26/25 1300 05/26/25 1411 05/26/25 1617 05/27/25 0325 NA 138 < > 136 -- -- 139 K 4.1 < > 5.3* -- -- 4.1 CL 108* < > 108* -- -- 109* CO2 23 < > 19* -- -- 20* BUN 23 < > 22 -- -- 21 CREATININE 0.99 < > 0.94 -- -- 0.92 ALT -- -- -- 9 -- -- AST -- -- -- 16 -- -- ALKPHOS -- -- -- 103 -- -- BILIDIR -- -- -- 0.4* -- -- PROT -- -- -- 4.9* -- -- INR 1.36* -- -- -- 1.38* -- < > = values in this interval not displayed. Blood Glucose Recent Labs 05/26/25 1815 05/26/25 2317 05/27/25 0325 05/27/25 0509 05/27/25 1125 GLU -- -- 157* -- -- FSBS 118* 137* -- 139* 181* Insulin Drip: No Imaging: Chest X-Ray with PICC terminating in the SVC pulmonary venous congestion, bilateral pleural effusions. * Kesha Sams, [facility] - 05/27/2025 2:27 PM EDT Pharmacy Note - Vancomycin Therapy S: Skyler Bautista is a(n) 84 y.o. female with diagnosis of AMS, hypotension, and fevers on 05/26, s/p left AKA on 05/24. Allergies: Lidocaine Day 2 of pharmacy managed vancomycin therapy. Other antimicrobials include: -piperacillin/tazobactam (05/26 - present) O: Most Recent Labs: Temp Min: 96.4 ??F (35.8 ??C) Max: 98.6 ??F (37 ??C) Recent Labs 05/26/25 0615 05/26/25 1300 05/27/25 0325 WBC 5.6 4.8 5.1 BUN 20 22 21 CREATININE 0.94 0.94 0.92 Estimated Creatinine Clearance: 38.4 mL/min (by C-G formula based on SCr of 0.92 mg/dL). Recent Labs 05/27/25 1201 VANCORANDOM 8.4 Recent Labs 05/26/25 1300 PROCLCTNIN 0.08 Recent Labs 05/26/25 1300 LACTA 1.5 I/O last 3 completed shifts: In: 1186.4 [P.O.:50; I.V.:278.2; IV Piggyback:858.2] Out: 3275 [Urine:3275] I/O this shift: In: 597 [P.O.:597] Out: 210 [Urine:210] Height: 5' 2 (157.5 cm) Weight: 120 lb (54.4 kg) Culture & Sensitivities: (05/23) Urine Cx - Clean Catch: > 100,000 CFU/mL Proteus mirabilis (confirmed ESBL, susceptible to piperacillin/tazobactam with ISAURA < 8 mcg/mL); 50,000 CFU/mL Escherichia coli (resistant to ampicillin, tetracycline, and sulfamethoxazole/trimethoprim,, intermediate to ampicillin/sulbactam, susc eptible to all others tested) (05/26) Urine Cx - Straight Catheter: 3000 CFU/mL Proteus mirabilis (refer to susceptibility on urine culture collected 05/23) (05/26) Blood Cx - Venous x 2: NG at 24 hours (05/26) Staphylococcus Aureus Screen - Swab from Nares: Staph aureus PCR - not detected; MRSA PCR -not detected A/P: sepsis Physician orders and progress notes reviewed. Renal function is stable. Vancomycin therapy currently maintained with intermittent/pulse dosing. Vancomycin level resulted as 8.4 mcg/mL (05/27 at 1201). Prior dose administered on 05/26 at 1701. Will modify vancomycin therapy to 750 mg every 24 hours. This dosing regimen is estimated to result in AUC of 549 mg??hr/L. Will check vancomycin levels on 05/29 at 0600 and 1100 prior to 3rd dose of scheduled vancomycin therapy. Other labs: BMP and CBC on 05/28. Pharmacy will continue to follow patient for changes in renal function, efficacy, and signs of toxicity. Thank you, Kesha Sams, PharmD, BCPS, BCCCP * Felicia Hoffman OT - 05/27/2025 1:22 PM EDT 05/27/25 0707 OT Subjective Note Type Chart Review;Reassessment/Re-Evaluation Patient Room/Unit 3417 OT Subjective Comments #1 Pt agreeable, but in pain. Others Present/Assisting [place]/PT Discharge Information This progress note will serve as the discharge summary if no further therapy is provided prior to the patient being discharged from the hospital. Admitting Diagnosis pt is an 84 y.o. F admitted 04/30 for diabetic foot infection Past Med Hx has a past medical history of A-fib (HCC), Arthritis, Blood circulation, collateral, CAD (coronary artery disease), Cardiac dysrhythmia, Carotid artery occlusion, CHF (congestive heart failure) (HCC), Diabetes mellitus (HCC), Difficult intravenous access, RIVERA (dyspnea on exertion), Encou nter for blood transfusion, Fatty liver, Glaucoma, Heartburn, Hyperlipidemia, Hypertension, Liver disease, Mixed hyperlipidemia, Peripheral vascular disease, Renal disorder, Renal insufficiency, Shortness of breath, Sleep apnea, Stroke (HCC), Urinary incontinence, and Urinary tract infection. Diagnostic Testing 05/26 CXR: Fluid overload or CHF with pulmonary edema and effusions. Clinical Course L AKA on 05/24, tx to MICU d/t hypotension. Precautions Weight Bearing Status Left lower extremity;Non-weight bearing Precaution Info Given Yes;To use call light to request assistance with all mobility;Weight bearing Cognition Orientation Intact Arousal Impaired Arousal Impairment Lethargic Safety Awareness Impaired Safety Awareness Impairment Minimal Impairments: Needs up to 25% input/direction from therapist in order to identify safety issues and maintain safety. Affect/Ability to cope Impaired Affect/Ability to cope impairment Distracted;Anxious;Hyperverbal Command Following Normal Memory Intact Communication Intact Pain Screening PT/OT Patient Currently in Pain Yes Pain Rating 9 Pain Location Leg Pain Orientation Left Pain Intervention(s) Repositioned;Ambulation/Increased activity;Emotional support Observation Presentation Patient resting in bed Observation IV;Garrido catheter;Telemetry;Bed alarm;Oxygen - nasal cannula;Continuous pulse ox Vitals VSS on 2L O2 UE Assessment LUE Assessment X LUE Additional Comments Limited AROM d/t needs TSR per pt. 3/5 below shoulder RUE Assessment WFL RUE Additional Comments grossly 4+/5 Hand Function Hand Dominance Right Gross Grasp Functional Coordination Functional Coord/Sensation Assessed Grossly Intact/Normal Perception Perception Grossly intact/normal ADL Interventions Where Assessed Edge of bed;Chair Grooming Assistance Stand by;With verbal cues;Oral care;Hair care;Washing face (seated EOB/in chair) LE Dressing Assistance Total;Don/doff R sock Bed Mobility Supine to Sit Maximum assistance;With cues;With 2 people Additional Comments Max A x 2 to scoot to EOB. Pt lightheaded. BP WFL's. Slight posterior lean in sitting. Transfers Sit to Stand Moderate assistance;With verbal cues;With 2 people Stand to Sit Moderate assistance;With verbal cues;With 2 people Bed to/from chair Moderate assistance;With 2 people;With verbal cues Additional Comments Cues for hand placement for sit to stand and to sequence transfer d/t new L AKA. Pt stood for 20 sec initially and then took a rest break seated EOB. Pt transferred to chair with RW and tactile cues to move RW through transfer. OT Gait Gait BHAVANA Balance Sitting Balance 1+/5 supports self with >50% effort using UE, requires therapist assistance Standing Balance 1/5 performs 25-50% (moderate assistance) PT/OT Mobility Documentation PT/OT Mobility Score 4 Activity Tolerance Endurance Limits participation and activity Functional Status Score (FSS-ICU) Rolling 2 Supine To Sit 2 Sitting At Edge Of Bed 4 Transfer From Sit To Stand 3 Ambulation 0 Cumulative Score 11 Is the patient currently in ICU? Yes AM PAC: How much help from another person does the patient currently need... putting on and taking off regular lower body clothing? 1 bathing (including washing, rinsing, drying)? 2 toileting, which includes using toilet, bedpan or urinal? 1 putting on and taking off regular upper body clothing? 3 taking care of personal grooming such as brushing teeth? 3 eating meals? 3 AM PAC DAILY ACTIVITY SCORING Daily Activity Raw Score 13 AM PAC Daily Activity CMS 0-100% Functional Percentage 63.03 AM PAC Daily Activity CMS G Code Modifier CL Education Education To use call light to request assistance with all mobility;Patient/Family Education;Role of Therapy;Safety with mobility;Cues for proper technique;Up with assistance only;Safe and proper post ure/positioning;Safe and proper technique with transfers;Educated on benefits of mobility, upright positioning, and getting out of bed Patient Safety Patient left in chair with needs in reach;Chair/personal alarm activated;Nursing notified of status Assessment Assessment Decreased ADL status;Decreased UE ROM;Decreased UE strength;Decreased endurance;Decreased self-care transfers;Decreased high-level ADLs Prognosis Good;With continued OT s/p acute discharge Progress Slow progress toward goals, medical status limitations Rationale for Skilled Therapy Fall Risk;Balance Deficits;Not safe with independent transfers;Not safe ambulating independently;Needs verbal/tactile cues for ADL's;Needs physical cues for ADL's;Requires physical assistance with ADLs;Needs intensive therapy;Requires multi-disciplinary team;Able to make measurable improvements;Decreased endurance and tolerance to activity Additional Comments pt would benefit from continued OT to maximize functional outcomes. Pt is well below baseline and requiring significant assist with ADL's/fxl mobility. Pt needs intensive therapy s/p new L AKA to address balance, strength, endurance, and compensatory strategies. Pt pleasant and cooperative, but anxious. Goals Patient and/or Family Goal Go home. Goals Yes Goal Formulation With Patient Time for Goal Achievement/Duration of Treatment 06/10/25 ADL Goals Pt Will Perform Upper Body Grooming Standing at sink;Contact guard;Not met Pt Will Perform Upper Body Bathing With setup;Not met Pt Will Perform Lower Body Bathing Minimal assistance;Not met Pt Will Perform LE Dressing Minimal assistance;Not met Pt Will Perform Toileting Minimal assistance (New goal) Functional Transfer Goals Pt Will Perform All Functional Transfers Contact guardance;Not met Arm Goals Pt will complete HEP Supervision;New Goal Plan Treatment Interventions ADL retraining;Functional transfer training;UE strengthening/ROM;Endurance training;Patient/Family training;Equipment eval/education;Compensatory technique education;Co-treatment with Physical Therapy OT Frequency 2-5x/wk Recommendation OT Recommendation High frequency, high intensity multi-disciplinary therapy for 15 hours per week. Time In / Time Out [id number] IP OT Individual Treatment Minutes 38 The total time spent caring for this patient included but was not limited to medical record review;hands-on treatment;communication and education with patient and/or family/caregiver;clinical judgement necessary for treatment planning for next session;communication with nursing and/or care coordinat ion/social work regarding patient status and discharge planning * Neris Butts RN - 05/27/2025 11:07 AM EDT Daily Status Update Pain medication / pain control. Family Does the patient have family present? No Ventilator SpO2: 100 % (05/27/25 1100) Ventilator: No Airway LDAs None Quintanilla Score: (not recorded) No results for input(s): PFRATIO in the last 72 hours. Pain Pain controlled in the last 24 hours: No: Pain/Sedation Medications morphine injection 2 mg EVERY 2 HOURS PRN oxyCODONE (ROXICODONE) immediate release tablet 5 mg EVERY 4 HOURS PRN acetaminophen (TYLENOL) tablet 650 mg EVERY 4 HOURS PRN Placed in Or Linked Group acetaminophen (TYLENOL) suppository 650 mg EVERY 4 HOURS PRN Placed in Or Linked Group acetaminophen (OFIRMEV) infusion 1,000 mg EVERY 6 HOURS PRN Placed in Or Linked Group Pain Patient Currently in Pain: Sleeping (05/27/25 0400) Appropriate Pain Scale For Patient: 0-10 Scale (05/27/25 0607) Patient's Stated Pain Goal: no pain (05/25/25 1238) Faces Scale: 6 (05/25/25 123) Pain 0-10 Scale: 8 (05/27/25 1002) Pain Type: Acute Post-Operative (05/25/252050) Pain Location: Leg (05/27/251001) Pain Orientation: Anterior;Posterior (05/27/251001) Pain Quality: Aching;Discomfort;Throbbing (05/27/25 1002) Onset pain: Past week (05/27/251001) Effect of Pain on Daily Activities: Decreased mobility;Hopeless (05/27/25 1002) Pain Intervention(s): Medication (see eMar) (05/27/25 1002) Post Intervention Reassessment: Sleeping (05/27/25 09) Critical-Care Pain Observation Tool Post Intervention Reassessment: Sleeping (05/27/25 09) Non-Verbal Pain Pain Intervention(s): Medication (see eMar) (05/27/25 1002) Faces Scale Faces Scale: 6 (05/25/25 1238) Pain Intervention(s): Medication (see eMar) (05/27/25 1002) Delirium Is the patient experiencing s/s of delirium? No RASS Score: 0 (05/27/25 0800) CAM Result: Negative (05/27/25 0800) Progressive Mobility Patient's Current Mobility Score: 5 RASS Score: 0 PT/OT Orders (From admission, onward) Start Ordered 05/07/25 1110 IP Consult to Occupational Therapy - Eval & Treat ONE TIME Question: Occupational Therapy Protocol (CHOOSE ONE): Answer: Patient from Skilled LOC and plan is to return to Skilled 05/07/25 1109 05/02/25 0957 IP consult to Physical Therapy-Eval & Tr ONE TIME 05/02/25 0956 PT Frequency: 3-5x/week Plan: Progress mobility/mobilize per orders today Blood Glucose Recent Labs 05/26/25 1237 05/26/25 1300 05/26/25 1815 05/26/25 2317 05/27/25 0325 05/27/25 0509 GLU -- < > -- -- 157* -- FSBS 129* -- 118* 137* -- 139* < > = values in this interval not displayed. Insulin Drip: No Basal Insulin Orders: no Prandial Insulin Orders: no Correctional Algorithm: Medium (CF 25) Plan: Continue current treatment plan - glucose controlled Nutrition Last 4 Weights 04/30/2025 1530 04/30/2025 2242 05/11/2025 2153 Weight: 117 lb (53.1 kg) 120 lb 11.2 oz (54.7 kg) 120 lb (54.4 kg) Net weight change in lbs since admission: 0 Ordered Tube Feeding Route: There are no questions and answers to display. There are no questions and answers to display. Diet Order: REGULAR DIET ICU Length of Stay: 1 days Plan: Continue current diet order Speech/Swallow Screen Bedside Swallow Screen Result: Communication Needs: No Bowel Regimen When was last BM? (Date): 05/24/25 Has patient had BM < or = 24 hours ago? No Is patient on opioid medication: Yes Bowel Regimen docusate sodium (COLACE) capsule 100 mg 2 TIMES DAILY PRN polyethylene glycol (GLYCOLAX, MIRALAX) packet 17 g 2 TIMES DAILY PRN Plan: Bowel regimen already ordered Wound Care Srinivasan Scale Score: (!) 13 Prevention options initiated?: Yes Wound LDAs Wound Duration Incision/Wound Skin tear Hand Posterior;Right 27 days Incision/Wound MASD Coccyx Mid gluteal split 20 days Incision/Wound Closed Surgical Leg Upper;Left 3 days Incision/Wound Skin tear Arm Right;Anterior;Upper open, moist, scant bloody draingage. 1 day Wound Care Consult (From admission, onward) Start Ordered 05/07/25 1235 Inpatient consult to wound care for:Other (comment); gluteal split- treatment cavilon(Wound Care Consult / Referral Panel) ONE TIME Provider: (Not yet assigned) Question Answer Comment Reason for Wound Consult Other (comment) Location? gluteal split- treatment cavilon 05/07/25 1235 05/01/25 0101 Inpatient consult to wound care for:Other (comment); Cavillon applied to coccyx, heels, elbows for prevention (Wound Care Consult / Pressure Injury Protocol Panel) ONE TIME Provider: (Not yet assigned) Question Answer Comment Reason for Wound Consult Other (comment) Location? Cavillon applied to coccyx, heels, elbows for prevention 05/01/25 0101 Foam Border: Clean, Dry and Intact, Assessed skin under foam boarder Foam Border Applied/Changed Location: Sacrum/coccyx, Right heel CLABSI Prevention CHG Application: Completed (05/27/25 0000) Central Line LDAs PICC Line Duration PICC Double Lumen 05/26/25 Right Brachial 1 day PICC Double Lumen 05/26/25 Right Brachial-Line necessity (Daily): Poor IV access or extravasation/infiltrates with symptoms x3 Appropriate to DC central line (use PIV instead)? No, poor access Intravenous Fluids Appropriate to DC IV fluids? N/A (no IVF) CAUTI Prevention Garrido Cath LDA Garrido Catheter Duration Urethral Catheter (Garrido) 05/26/25 1815 Temperature probe 16 fr 1 day Ana Care/Garrido Care: Foam cleanser (05/27/25 0000) Appropriate to DC garrido (alternatives: external catheter, urinal, etc)? Yes- initiate removal/voiding protocol Restraints Restraints: no Most Recent Restraint Order (From admission, onward) None LTACH Is this patient LTACH appropriate? No: Will continue to follow * Ely Owusu RD,LD - 05/27/2025 9:50 AM EDT [facility] Nutrition Malnutrition Reassessment Evidence Supported Diagnosis: No malnutrition identified In the context of: Nutrition Problem/Diagnosis: Nutrition Diagnosis Problem 1: Increased nutrient needs (specify) (kcal and pro) related to increased demand for energy/nutrients as evidenced by wounds. Status: Active nutrition diagnosis Nutrition Prescription: Kcals: 7650-8312 kcal (25-30 kcal/kg, based on 54.4 kg) Protein (g): 65-82 gm Protein needs based on: 1.2-1.5 gm/kg Fluid (ml): 1 ml/kcal or per MD Other (comment): Will update pending updated weight Plan/Interventions: Meals and Snacks: Regular Medical Food Supplements: Glucerna Therapeutic Medical Food/Supplement Freq: daily Nutrition-Related Medication Management: Insulin Nutrition Education: (-) Collaboration And Referral Of Nutrition Care: Collaboration with other providers Nutrition Discharge Instructions: Continue to eat foods high in protein. Continue to drink protein shakes 1-2x per day for additional protein. Skyler Bautista is a 84 y.o. female patient. Admit Diagnosis: Wound dehiscence [T81.30XA] Diabetic foot infection (HCC) [E11.628, L08.9] Subjective: Subjective Comment: Pt sleeping in chair, did not wake. Pt with poor PO, poor acceptance to ONS. Ptnot taking any Cristine since 05/24- will d/c. Poor acceptance to Glucerna as well. Anthropometric Measurements: Height: 5' 2 (157.5 cm) Weight: 120 lb (54.4 kg) BMI (Calculated): 21.95 Does Patient Have An Amputation?: Yes Percent Amputation: 10.1 % Adjusted BMI: (pending update weight) Other (Comment): no updated weight Food/Nutrition Related History: Dietary Orders Ordered Regular Diet DIET EFFECTIVE NOW 05/24/25 1154 GLUCERNA Therapeutic oral supplement 1 'box' Oral Q AM 1 'box' at 05/26/25902 CRISTINE powder oral supplement 1 Packet Oral BID 1 Packet at 05/26/25902 Food Insecurity Within the past 12 months, you worried that your food would run out before you got the money to buymore.: Never true Within the past 12 months, the food you bought just didn't last and you didn't have money to get more.: Never true % Avg Meals Consumed: 50 % (last documented PO 05/24) Supplement Acceptance: taking less than 1/day Nutrition Focused Physical Findings: LDAs- Active NG/OG/N[place],Wound,Pressure Injury,or Drain Wound Duration Incision/Wound Skin tear Hand Posterior;Right 27 days Incision/Wound MASD Coccyx Mid gluteal split 20 days Incision/Wound Closed Surgical Leg Upper;Left 3 days Incision/Wound Skin tear Arm Right;Anterior;Upper open, moist, scant bloody draingage. 1 day I/O last 3 completed shifts: In: 1186.4 [P.O.:50; I.V.:278.2; IV Piggyback:858.2] Out: 3275 [Urine:3275] Edema:Generalized Edema: No Facial Edema: No Right Lower Extremity Edema: Trace Left Lower Extremity Edema: Unable to assess Perineal Edema: +2, Non-pitting Abdomen: Abdominal/GI Abdomen Inspection: Soft, Non-distended Bowel Sounds (All Quadrants): Active Abdominal palpation: Soft, No guarding Nausea: No Constipation: No When was last BM? (Date): 05/24/25 Stool Assessment: Stool Occurrence: 1 Stool Appearance: Type 5 [place] Stool Chart Stool Color: Brown Stool Amount: Small Biochemical Data/Medical Tests: Pertinent Meds: Insulin Pertinent Labs: Glucose @ 157 Pertinent Medical History: DM, HTN, CHF, liver disease, HLD, stroke, CAD, CKD, CABG Clinical Course: Admitted with L TMA dehiscence. 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 Transferred to MICU 05/26 d/t hypotension. CXR with pulmonary edema. Palliative care following. * Stephen Pickard MD - 05/27/2025 9:42 AM EDTAssociated Problem(s): PAD (peripheral artery disease) - vascular following - severe disease - AKA as above * Stephen Pickard MD - 05/27/2025 9:42 AM EDTAssociated Problem(s): Paroxysmal atrial fibrillation (HCC) - 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 - rate controlled on coreg * Stephen Pickard MD - 05/27/2025 9:42 AM EDTAssociated Problem(s): Type 2 diabetes mellitus, without long-term current use of insulin (HCC) - A1c 5.3 - diet controlled - not following FSBS * Stephen Pickard MD - 05/27/2025 9:42 AM EDTAssociated Problem(s): Hypertension associated with diabetes (HCC) - meds held for lows * Stephen Pickard MD - 05/27/2025 9:42 AM EDTAssociated Problem(s): Acute on chronic heart failure with preserved ejection fraction (HCC) - Echo 2023 normal EF. - Euvolemic on exam - repeat echo pending * Stephen Pickard MD - 05/27/2025 9:42 AM EDTAssociated Problem(s): Stage 3a chronic kidney disease (HCC) - Baseline approx 0.9-1.2. - stable * Stephen Pickard MD - 05/27/2025 9:42 AM EDTAssociated Problem(s): 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 - History of CABG - continue lipitor, coreg, ranexa - no chest pain * Stephen Pickard MD - 05/27/2025 9:42 AM EDTAssociated Problem(s): Anemia in other chronic diseases classified elsewhere - low but stable - b12, folate, iron ok. Trasferrin down - INR up just a little. Smear ok * Stephen Pickard MD - 05/27/2025 9:42 AM EDTAssociated Problem(s): Pancytopenia (HCC) - low but stable - b12, folate, iron ok. Trasferrin down - INR up just a little. Smear ok * Stephen Pickard MD - 05/27/2025 9:42 AM EDTAssociated Problem(s): Acute respiratory failure with hypoxemia (HCC) - transferred to MICU yesterday with hypotension and hypoxia - pulm edema on cxr - echo pending - limited diuresis due to below - satting well now on 2L * Stephen Pickard MD - 05/27/2025 9:42 AM EDTAssociated Problem(s): Acute pulmonary edema (HCC) - transferred to MICU yesterday with hypotension and hypoxia - pulm edema on cxr - echo pending - limited diuresis due to below - satting well now on 2L * Stephen Pickard MD - 05/27/2025 9:42 AM EDTAssociated Problem(s): Hypotension - cortisol equivocal but stim ok - improved. * Stephen Pickard MD - 05/27/2025 9:42 AM EDTAssociated Problem(s): Metabolic encephalopathy - improving today * Stephen Pickard MD - 05/27/2025 9:42 AM EDTAssociated Problem(s): Diabetic foot infection (HCC) - Wound dehiscence over previous left TMA site. ESR, CRP normal. WBC wnl. Afebrile. No acute infection. Not on abx - podiatry saw - vascular following - MRI L foot 7/18 with mild marrow edema of metatarsal distal stump margins without evidence of osteomyelitis - Angiogram performed, minimal blood flow past the knee, recommend edAKA - s/p AKA 8/8 - pain remains an issue. * Stephen Pickard MD - 05/27/2025 9:42 AM EDTAssociated Problem(s): S/P transmetatarsal amputation of foot, left (HCC) - Wound dehiscence over previous left TMA site. ESR, CRP normal. WBC wnl. Afebrile. No acute infection. Not on abx - podiatry saw - vascular following - MRI L foot 7/18 with mild marrow edema of metatarsal distal stump margins without evidence of osteomyelitis - Angiogram performed, minimal blood flow past the knee, recommend edAKA - s/p AKA 8/8 - pain remains an issue. * Stephen Pickard MD - 05/27/2025 9:35 AM EDT Images from the original note were not included. PROGRESS NOTE Assessment & Plan Diabetic foot infection (HCC) S/P transmetatarsal amputation of foot, left (HCC) - Wound dehiscence over previous left TMA site. ESR, CRP normal. WBC wnl. Afebrile. No acute infection. Not on abx - podiatry saw - vascular following - MRI L foot 05/03 with mild marrow edema of metatarsal distal stump margins without evidence of osteomyelitis - Angiogram performed, minimal blood flow past the knee, recommend edAKA - s/p AKA 05/24 - pain remains an issue. PAD (peripheral artery disease) - vascular following - severe disease - AKA as above Acute respiratory failure with hypoxemia (HCC) Acute pulmonary edema (HCC) - transferred to MICU yesterday with hypotension and hypoxia - pulm edema on cxr - echo pending - limited diuresis due to below - satting well now on 2L Hypotension - cortisol equivocal but stim ok - improved. Paroxysmal atrial fibrillation (HCC) - 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 - rate controlled on coreg Type 2 diabetes mellitus, without long-term current use of insulin (HCC) - A1c 5.3 - diet controlled - not following FSBS Hypertension associated with diabetes (HCC) - meds held for lows Chronic heart failure with preserved ejection fraction (HCC) - Echo 2023 normal EF. - Euvolemic on exam - repeat echo pending Stage 3a chronic kidney disease (HCC) - Baseline approx 0.9-1.2. - stable 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 - History of CABG - continue lipitor, coreg, ranexa - no chest pain Anemia in other chronic diseases classified elsewhere Pancytopenia (HCC) - low but stable - b12, folate, iron ok. Trasferrin down - INR up just a little. Smear ok Metabolic encephalopathy - improving today Dispo: Handoff Completed: No Disposition Perspective - Medically ready for discharge: No Anticipated ready for discharge timeframe?: 2-3 days Ready for discharge when / if?: pending improved mental status. Estimated Date of Discharge: 05/30/2025 VTE Prophylaxis: PHARM VTE PROPH NON-CANDIDATE Subjective: Pain in leg. No chest pain or sob. Objective: BP (!) 148/127 Pulse 127 Temp 97 ??F (36.1 ??C) Resp 19 Ht 5' 2 (1.575 m) Wt 120 lb (54.4 kg) SpO2 99% BMI 21.95 kg/m?? I/O last 3 completed shifts: In: 1186.4 [P.O.:50; I.V.:278.2; IV Piggyback:858.2] Out: 3275 [Urine:3275] Weight: 120 lb (54.4 kg) Constitutional: Alert and oriented to person, place. No distress. Cardiovascular: Normal rate and regular rhythm. Exam reveals no friction rub. No murmur heard. Pulmonary/Chest: Effort normal and breath sounds normal. No respiratory distress. There are no wheezes. Abdominal: Soft. Bowel sounds are normal. No distension. There is no tenderness. There is no rebound and no guarding. Musculoskeletal: No edema. Neurological: Grossly normal. Skin: Skin is warm and dry. Left AKA Labs: Laboratory data and diagnostic testing reviewed 05/27/25. Stephen Pickard MD 05/27/2025 9:35 AM * Radha Looney, PT - 05/27/2025 9:28 AM EDT 05/27/25 0916 PT Subjective Note Type Reassessment/Re-Evaluation Patient Room/Unit 3417 PT Subjective Comments #1 pt agreeable with encouragement, anxious about mobility s/p L AKA 05/24/2025 Others Present/Assisting FLORESITA Duarte Discharge Information Evaluation to serve as discharge summary if no further treatment provided before the facility discharge Admitting Diagnosis pt is an 84 y.o. F admitted 04/30 for diabetic foot infection Past Med Hx Afib, PAD, HFpEF, L TMA 03/2025, R femur fx 03/2024, CABG 05/2024, emphysema, DANTE, Afib Diagnostic Testing 05/26 CXR: Fluid overload or CHF with pulmonary edema and effusions. Clinical Course L AKA on 05/24, tx to MICU d/t hypotension. Pain Screening PT/OT Patient Currently in Pain Yes Pain Rating 9 Pain Location Leg Pain Orientation Left Pain Intervention(s) Repositioned;Ambulation/Increased activity;Emotional support Cognition Orientation Intact Arousal Impaired Arousal Impairment Lethargic Safety Awareness Impaired Safety Awareness Impairment Minimal Impairments: Needs up to 25% input/direction from therapist in order to identify safety issues and maintain safety. Affect/Ability to cope Impaired Affect/Ability to cope impairment Distracted;Anxious;Hyperverbal Command Following Normal Communication Intact Precautions Therapy Precautions Yes Precaution Info Given To use call light to request assistance with all mobility Perception Perception Grossly intact/normal Observation Presentation Patient resting in bed Observation IV;Garrido catheter;Telemetry;Bed alarm;Oxygen - nasal cannula;Continuous pulse ox Vitals stable on 2LO2 via NC LE Assessment LLE Additional Comments L AkA RLE Additional Comments grossly 3+/5 Bed Mobility Supine to Sit Maximum assistance;With cues;With 2 people Additional Comments pt reports feeling lightheadd sitting EOB Transfers Sit to Stand Moderate assistance;With 2 people;With verbal cues Stand to Sit Moderate assistance;With verbal cues;With 2 people Bed to/from chair Moderate assistance;With verbal cues;With 2 people Additional Comments cues given for hand placement, pt is very anxous about STS to 2ww. First attempt pt stands to 2ww and after 20s states she has to sit. Pt was educated on stand pivot transfer using 2ww. Pt transfers from bed to chair with 2ww and modA x2, with cuing and manual assistance for placement of AD Gait Gait BHAVANA (pt performs stand pivot transfer using 2ww) Functional Status Score (FSS-ICU) Rolling 2 Supine To Sit 2 Sitting At Edge Of Bed 4 Transfer From Sit To Stand 3 Ambulation 0 Cumulative Score 11 Is the patient currently in ICU? Yes PT/OT Mobility Documentation PT/OT Mobility Score 4 AM PAC: How much help from another person does the patient currently need... turning from your back to your side while in a flat bed without using bedrails? 2 moving from lying on your back to sitting on the side of a flat bed without using bedrails? 2 moving to and from a bed to a chair? 2 standing up from a chair using your arms (e.g. wheelchair, or bedside chair)? 2 need to walk in hospital room? 1 climbing 3-5 steps with a railing? 1 AM PAC: BASIC MOBILITY SCORING AM PAC Baldevty Raw Score 10 AM PAC Mobility CMS 0-100% Functional Percentage 71.92 AM PAC Mobility CMS G Code Modifier CL Balance Sitting Balance 1+/5 supports self with >50% effort using UE, requires therapist assistance Standing Balance 1/5 performs 25-50% (moderate assistance) Education Education To use call light to request assistance with all mobility;Patient/Family Education;Role of Therapy;Safety with mobility;Cues for proper technique;Discharge planning;Up with assistance only;Safe and proper technique with transfers;Safe and proper technique with gait pattern;Safe and properposture/positioning;Pursed lip breathing Additional Comments PLB for relaxation Patient Safety Patient Safety Patient left in chair with needs in reach;Nursing notified of status;Chair/personal alarm activated Assessment Assessment Decreased gait;Decreased functional mobility;Decreased balance;Decreased RightLower Extremity strength;Decreased Left Lower Extremity strength;Decreased activity tolerance ;Decreased safety judgement Prognosis Fair;With continued PT s/p acute discharge Progress Slow progress toward goals Rationale for Skilled Therapy Fall Risk;Balance Deficits;Not safe with independent transfers;Not safe ambulating independently;Needs intensive therapy;Requires multi-disciplinary team;Able to make measurable improvements Goals Patient and/or Family Goal get better Will Perform Supine To Sit With minimal assist Will Perform Sit to Supine With minimal assist Will Perform Sit to Stand With minimal assist;With assist of 2 Will Transfer Bed/Chair With minimal assist;With assist of 2 Will Ambulate With 2 wheel walker;1-10 feet;With moderate assist Goal Formulation With patient Time for Goal Achievement/Duration of Treatment 14 days, 06/10/2025 Plan Treatment/Interventions Gait training;Bed mobility;Neuromuscular re- education;Balance training;Functional transfer training;LE strengthening/ROM;Increase activity tolerance PT Frequency 3-5x/week Recommendation PT Recommendation High frequency, high intensity multi-disciplinary therapy for 15 hours per week. Time In / Time Out [phone] IP PT Evaluation Minutes 10 IP PT Treatment Minutes 37 The total time spent caring for this patient included but was not limited to hands-on treatment;medical record review;communication and education with patient and/or family/caregiver;clinical judgement necessary for treatment planning for next session;communication with nursing and/or care coordinat ion/social work regarding patient status and discharge planning * Joya Whatley RN - 05/26/2025 5:44 PM EDT Bedside PICC Line Insertion Procedure Note Procedure was performed by Joya Whatley RN. The patient/family was informed of the risks and benefits of the procedure, and consent was given and placed in the chart. An ultrasound interrogation was performed on the right brachial vein. It was shown to be patent andcompressible. The catheter was placed using all elements of the maximal sterile barrier technique and all elements of the sterile ultrasound technique. Following sterile skin preparation local anesthesia was not used due to Lidocaine allergy. The vein was punctured, which allowed guidewire and introducer sheath i nsertion. The guidewire was removed and verified by MAHENDRA Perez. A 4 sammarinese double lumen PICC cut at the 38 cm was inserted through the introducer sheath. Unable to get tip confirmation with 3CG technology. Chest X-ray ordered for tip confirmation prior to line usage. 0 cm of the catheter exposed. The catheter aspirated blood and flushed freely. The catheter was secured to the skin surface. CHG sterile dressing was applied. The patient did tolerate the procedure well. Primary RN, Marni, updated on procedure. Joya Whatley RN * Josefina Ayala PharmD - 05/26/2025 5:26 PM EDT Pharmacy Consult: Vancomycin S: Skyler Bautista is a(n) 84 y.o. female with diagnosis of hypotension, AMS, and fevers. S/p AKA on 05/24. Allergies: Lidocaine Pharmacy consulted to manage vancomycin therapy. Other antimicrobials include: Piperacillin/tazobactam (05/26- ) O: Most Recent Labs: Temp Min: 97.4 ??F (36.3 ??C) Max: 101 ??F (38.3 ??C) Recent Labs 05/25/25 0650 05/26/25 0615 05/26/25 1300 WBC 6.0 5.6 4.8 BUN 21 20 22 CREATININE 0.93 0.94 0.94 Estimated Creatinine Clearance: 37.6 mL/min (by C-G formula based on SCr of 0.94 mg/dL). Recent Labs 05/26/25 1300 PROCLCTNIN 0.08 Recent Labs 05/26/25 1300 LACTA 1.5 I/O last 3 completed shifts: In: 150.4 [P.O.:50; IV Piggyback:100.4] Out: 400 [Urine:400] I/O this shift: In: 539.6 [I.V.:136.3; IV Piggyback:403.3] Out: - Height: 5' 2 (157.5 cm) Weight: 120 lb (54.4 kg) Culture & Sensitivities: Results for orders placed or performed during the hospital encounter of 04/30/25 (from the past 2 weeks) URINE CULTURE (NO STAIN) Collection Time: 05/23/25 3:31 PM Specimen: Urine, Clean Catch Result Value Ref Range Culture Positive Growth (A) Culture >100,000 CFU/mL Proteus mirabilis Culture 50,000 CFU/mL Escherichia coli Susceptibility Escherichia coli - SUSCEPTIBILITY RESULT Amikacin Amoxicillin/Clavulanate <=8/4 Susceptible ug/mL Ampicillin >16 Resistant ug/mL Ampicillin/Sulbactam 16/8 Intermediate ug/mL Aztreonam <=4 Susceptible ug/mL Cefazolin <=2 Susceptible ug/mL Cefepime Cefotaxime Cefoxitin <=8 Susceptible ug/mL Ceftazidime Ceftazidime/Avibactam Ceftolozane/Tazobactam Ceftriaxone Cefuroxime Ciprofloxacin <=0.25 Susceptible ug/mL Ertapenem <=0.5 Susceptible ug/mL Gentamicin <=2 Susceptible ug/mL Imipenem <=1 Susceptible ug/mL Levofloxacin <=0.5 Susceptible ug/mL Meropenem <=1 Susceptible ug/mL Meropenem/Vaborbactam Minocycline Moxifloxacin Nitrofurantoin <=32 Susceptible ug/mL Piperacillin/Tazobactam <=8 Susceptible ug/mL Tetracycline >8 Resistant ug/mL Tigecycline Tobramycin <=2 Susceptible ug/mL Trimethoprim/Sulfamethoxazole >2/38 Resistant ug/mL Proteus mirabilis - SUSCEPTIBILITY RESULT Amikacin Amoxicillin/Clavulanate Ampicillin >16 Resistant ug/mL Ampicillin/Sulbactam Aztreonam 8 Resistant ug/mL Cefazolin >16 Resistant ug/mL Cefepime >16 Resistant ug/mL Cefotaxime >32 Resistant ug/mL Cefoxitin <=8 Susceptible ug/mL Ceftazidime <=1 Resistant ug/mL Ceftazidime/Avibactam Ceftolozane/Tazobactam Ceftriaxone >32 Resistant ug/mL Cefuroxime >16 Resistant ug/mL Ciprofloxacin >2 Resistant ug/mL Ertapenem <=0.5 Susceptible ug/mL Gentamicin <=2 Susceptible ug/mL Imipenem Levofloxacin >4 Resistant ug/mL Meropenem <=1 Susceptible ug/mL Meropenem/Vaborbactam Minocycline Moxifloxacin Nitrofurantoin Piperacillin/Tazobactam <=8 Susceptible ug/mL Tetracycline Tigecycline Tobramycin <=2 Susceptible ug/mL Trimethoprim/Sulfamethoxazole >2/38 Resistant ug/mL BLOOD CULTURE (NO STAIN) Collection Time: 05/26/25 11:58 AM Specimen: Blood, Venous Result Value Ref Range Culture Result Blood culture received for processing in the laboratory. Positives will be reported immediately. BLOOD CULTURE (NO STAIN) Collection Time: 05/26/25 11:58 AM Specimen: Blood, Venous Result Value Ref Range Culture Result Blood culture received for processing in the laboratory. Positives will be reported immediately. A/P: Physician orders and progress notes reviewed. Patient has known CKD. Renal function is stable today at 0.94 mg/dL (baseline SCr ~0.9-1.2 mg/dL). Will initiate therapy with vancomycin 1000 (~18 mg/kg) mg then intermittent/pulse. Vancomycin random concentration to be drawn 05/27 at 1200 for goal 15 - 20 mcg/mL. Pharmacy will follow patient for changes in renal function, efficacy, and signs of toxicity. Thank you, Josefina Ayala PharmD * Leti Puentes RN - 05/26/2025 3:38 PM EDT Called to make family aware of patients ICU transfer. Was unable to reach Edgar, but Sarah was reachable and updated. * Leti Puentes RN - 05/26/2025 1:01 PM EDT Attempted to call patients son and sister to give update on patient status. Neither answered. I wasable to leave a voicemail with call back number on sisters voicemail. * Jose Key PA - 05/26/2025 11:39 AM EDT Images from the original note were not included. Patient Name:Skyler Bautista : 1940 Admitting Diagnosis: Diabetic foot infection (HCC) INTERVAL HISTORY Patient seen and examined, nursing staff attempting straight cath. Fevers overnight MEDICAL HISTORY Scheduled Medications: ALPRAZolam 0.5-1 mg Oral Nightly atorvastatin 40 mg Oral Nightly carvediloL 12.5 mg Oral BID cyclobenzaprine 5 mg Oral BID dorzolamide-timoloL 1 Drop Ophthalmic BID gabapentin 400 mg Oral TID GLUCERNA Therapeutic 1 'box' Oral Q AM CRISTINE powder 1 Packet Oral BID latanoprost 1 Drop Ophthalmic Nightly pantoprazole 40 mg Oral Daily piperacillin-tazobactam (ZOSYN) extended infusion (Orderable) 3.375 g Intravenous 3 times per day ranolazine 1,000 mg Oral Daily sodium phosphate 10 mmol in dextrose 5% 150 mL IVPB 10 mmol Intravenous Once Allergy: Allergies Allergen Reactions Lidocaine Rash Last Recorded Vital Signs: Temp: 99.6 ??F (37.6 ??C) Pulse: 84 BP: 105/55 Resp: 16 SpO2: 91 % O2 Flow Rate (L/min): 1 lpm Intake/Output Summary (Last 24 hours) at 05/26/2025 1139 Last data filed at 05/26/2025 1125 Gross per 24 hour Intake 150.42 ml Output 400 ml Net -249.58 ml LABS AND RADIOLOGY Pertinent Labs: CBC: Recent Labs 05/26/25 0615 WBC 5.6 HGB 8.3* HCT 25.7* MCV 107.5* PLT 71* BMP: Recent Labs 05/26/25 0615 NA 135* K 4.6 CL 108* CO2 19* BUN 20 CREATININE 0.94 CALCIUM 8.0* GLU 120* Coagulation: No results for input(s): APTT , PROTIME , INR in the last 72 hours. Imaging:No results found. PHYSICAL EXAMINATION Physical Exam: General: Tearful Head: NC/AT. Resp: Effort normal. Abdomen: soft, non-tender. Skin: warm, well perfused Extremities: No lower extremity edema. Vascular: Psych: Tearful MEDICAL DECISION MAKING Active Hospital Problems Diagnosis *Diabetic foot infection (HCC) Pancytopenia (HCC) Palliative care by specialist Goals of care, counseling/discussion Wound dehiscence S/P transmetatarsal amputation of foot, left (HCC) Critical limb ischemia of left lower extremity (HCC) Stage 3a chronic kidney disease (HCC) Anemia in other chronic diseases classified elsewhere PAD (peripheral artery disease) Chronic heart failure with preserved ejection fraction (HCC) Paroxysmal atrial fibrillation (HCC) 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 Type 2 diabetes mellitus, without long-term current use of insulin (HCC) Hypertension associated with diabetes ([facility]) Assessment: S/p L AKA 05/24 PAD with failing left TMA S/p Aortogram, LLE angio, RLE angio 05/10 Hx L frontotemporal hemorrhagic contusion, bilateral SAH and SDH Hx frequent falls Paroxysmal atrial fibrillation Chronic CHF Plan: L AKA stump appears stable Dressing changes daily and PRN - orders placed in chart Infectious workup started due to fevers overnight - encourage use of incentive spirometer Ok for discharge back to SNF from our standpoint once medically cleared and pending infectious workup We will follow up in 1 month to remove noelle Further input once seen by the vascular surgeon. Signed: ABIGAIL Rick 05/26/2025 11:39 AM Cosigned by Jose Angel Gustafson DO at 05/26/2025 8:55 PM EDT Associated attestation - Jose Angel Gustafson DO - 05/26/2025 8:55 PM EDT I independently evaluated the patient, performed a physical examination, and review of the history,labs and medications. I reviewed the findings of the physician physician assistant surgery and discussed the case in detail. Below is a summary of my pertinent independent evaluation and findings in addition to the assessment and plan formulated by the physician physician assistant surgery. L AKA dressing changed Stump appears viable * Stephen Pickard MD - 05/26/2025 9:50 AM EDTAssociated Problem(s): Diabetic foot infection (HCC) - Wound dehiscence over previous left TMA site. ESR, CRP normal. WBC wnl. Afebrile. No acute infection. Not on abx - podiatry saw - vascular following - MRI L foot 7 with mild marrow edema of metatarsal distal stump margins without evidence of osteomyelitis - Angiogram performed, minimal blood flow past the knee, recommend edAKA - s/p AKA 05/24 - some pain issues * Stephen Pickard MD - 05/26/2025 9:50 AM EDTAssociated Problem(s): S/P transmetatarsal amputation of foot, left (HCC) - Wound dehiscence over previous left TMA site. ESR, CRP normal. WBC wnl. Afebrile. No acute infection. Not on abx - podiatry saw - vascular following - MRI L foot 18 with mild marrow edema of metatarsal distal stump margins without evidence of osteomyelitis - Angiogram performed, minimal blood flow past the knee, recommend edAKA - s/p AKA 8 - some pain issues * Stephen Pickard MD - 05/26/2025 9:50 AM EDTAssociated Problem(s): PAD (peripheral artery disease) - vascular following - severe disease - AKA as above * Stephen Pickard MD - 05/26/2025 9:50 AM EDTAssociated Problem(s): Paroxysmal atrial fibrillation (HCC) - 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 - rate controlled on coreg * Stephen Pickard MD - 05/26/2025 9:50 AM EDTAssociated Problem(s): Type 2 diabetes mellitus, without long-term current use of insulin (HCC) - A1c 5.3 - diet controlled - not following FSBS * Stephen Pickard MD - 05/26/2025 9:50 AM EDTAssociated Problem(s): Hypertension associated with diabetes (HCC) - at goal on current rx * Stephen Pickard MD - 05/26/2025 9:50 AM EDTAssociated Problem(s): Acute on chronic heart failure with preserved ejection fraction (HCC) - Echo 2023 normal EF. - Euvolemic on exam * Stephen Pickard MD - 05/26/2025 9:50 AM EDTAssociated Problem(s): Stage 3a chronic kidney disease (HCC) - Baseline approx 0.9-1.2. - stable * Stephen Pickard MD - 05/26/2025 9:50 AM EDTAssociated Problem(s): 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 - History of CABG - continue lipitor, coreg, ranexa - no chest pain * Stephen Pickard MD - 05/26/2025 9:50 AM EDTAssociated Problem(s): Anemia in other chronic diseases classified elsewhere - low but stable - b12, folate, iron ok. Trasferrin down - INR up just a little. Smear ok * Stephen Pickard MD - 05/26/2025 9:50 AM EDTAssociated Problem(s): Pancytopenia (HCC) - low but stable - b12, folate, iron ok. Trasferrin down - INR up just a little. Smear ok * Stephen Pickard MD - 05/26/2025 9:49 AM EDT Images from the original note were not included. PROGRESS NOTE Assessment & Plan Diabetic foot infection (HCC) S/P transmetatarsal amputation of foot, left ([facility]) - Wound dehiscence over previous left TMA site. ESR, CRP normal. WBC wnl. Afebrile. No acute infection. Not on abx - podiatry saw - vascular following - MRI L foot 05/03 with mild marrow edema of metatarsal distal stump margins without evidence of osteomyelitis - Angiogram performed, minimal blood flow past the knee, recommend edAKA - s/p AKA 05/24 - some pain issues PAD (peripheral artery disease) - vascular following - severe disease - AKA as above Paroxysmal atrial fibrillation (HCC) - 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 - rate controlled on coreg Type 2 diabetes mellitus, without long-term current use of insulin ([facility]) - A1c 5.3 - diet controlled - not following FSBS Hypertension associated with diabetes ([facility]) - at goal on current rx Chronic heart failure with preserved ejection fraction (HCC) - Echo 2023 normal EF. - Euvolemic on exam Stage 3a chronic kidney disease (HCC) - Baseline approx 0.9-1.2. - stable 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 - History of CABG - continue lipitor, coreg, ranexa - no chest pain Anemia in other chronic diseases classified elsewhere Pancytopenia (HCC) - low but stable - b12, folate, iron ok. Trasferrin down - INR up just a little. Smear ok Addendum: called by RN for hypotension, hypoxia, and decreased LOC. Patient will wake briefly. Has no complaints. BP improved some after small fluid bolus but CXR with pulm edema. BP dropped again. Hesitant to give more fluids. Started on iv abx with fever. Recent UA dirty but repeat today with only 5 WBC's/HPF. Wound looks ok. Hgb dropping. No obvious bleeding. Increase PPI to BID. Follow hgb. Wi ll transfer to MICU for closer monitoring and she might need pressors. Cortisol is equivocal. Checkstim. Stopped all scheduled sedating meds. Dispo: Handoff Completed: No Disposition Perspective - Medically ready for discharge: No Anticipated ready for discharge timeframe?: 1-2 days Ready for discharge when / if?: pain better, ok with vascular Estimated Date of Discharge: 05/27/2025 VTE Prophylaxis: Holding with TCP Subjective: Leg pain worse today. No nausea. No chest pain or sob. Objective: BP 125/67 Pulse 87 Temp 99 ??F (37.2 ??C) (Oral) Resp 16 Ht 5' 2 (1.575 m) Wt 120 lb (54.4 kg) SpO2 90% BMI 21.95 kg/m?? I/O last 3 completed shifts: In: 360 [P.O.:360] Out: 0 Weight: 120 lb (54.4 kg) Constitutional: Alert and oriented to person, place, and time. No distress. Cardiovascular: Normal rate and regular rhythm. Exam reveals no friction rub. No murmur heard. Pulmonary/Chest: Effort normal and breath sounds normal. No respiratory distress. There are no wheezes. Abdominal: Soft. Bowel sounds are normal. No distension. There is no tenderness. There is no rebound and no guarding. Musculoskeletal: left AKA Neurological: Grossly normal. Skin: Skin is warm and dry. No erythema. Labs: Laboratory data and diagnostic testing reviewed 05/26/25. Stephen Pickard MD 05/26/2025 9:49 AM * Gaye Fallon RN - 05/25/2025 5:54 PM EDT Garrido removed [id number], per protocol. Voiding trial started. * Jose Angel Gustafson DO - 05/25/2025 11:27 AM EDT Vascular Surgery Progress Note No complaints Patient Vitals for the past 24 hrs: BP Temp Temp src Pulse Resp SpO2 05/25/25 1115 -- -- -- 81 -- -- 05/25/25 0811 145/67 97.5 ??F (36.4 ??C) Axillary 85 15 98 % 05/25/25 0504 -- -- -- 87 -- -- 05/25/25 0305 -- -- -- 88 -- -- 05/25/25 0100 -- -- -- 85 -- -- 05/24/25 2300 -- -- -- 86 -- -- 05/24/25 2202 119/61 97.5 ??F (36.4 ??C) Oral 77 14 99 % 05/24/25 2008 114/60 96.3 ??F (35.7 ??C) Axillary 74 12 94 % 05/24/25 1754 103/48 98.2 ??F (36.8 ??C) Oral 88 15 96 % 05/24/25 1704 -- -- -- 87 -- -- 05/24/25 1557 132/73 97.9 ??F (36.6 ??C) Axillary 77 13 98 % 05/24/25 1530 115/62 97.5 ??F (36.4 ??C) Forehead 76 11 97 % 05/24/25 1515 112/58 -- -- 81 12 96 % 05/24/25 1500 113/62 97.4 ??F (36.3 ??C) Forehead 83 12 95 % 05/24/25 1445 123/74 -- -- 79 14 97 % 05/24/25 1430 112/67 -- -- 75 16 96 % 05/24/25 1415 114/59 -- -- 83 17 97 % 05/24/25 1400 128/85 97.4 ??F (36.3 ??C) Forehead 76 14 96 % 05/24/25 1345 118/69 -- -- 72 15 96 % 05/24/25 1330 138/88 -- -- 80 17 97 % 05/24/25 1315 124/78 -- -- 86 18 98 % 05/24/25 1300 110/74 97.4 ??F (36.3 ??C) Forehead 83 13 95 % 05/24/25 1245 122/71 -- -- 86 10 96 % 05/24/25 1232 -- 98.5 ??F (36.9 ??C) Forehead -- -- -- 05/24/25 1230 113/59 96.3 ??F (35.7 ??C) Oral 76 12 94 % 05/24/25 1215 121/77 96.6 ??F (35.9 ??C) Forehead 80 17 97 % 05/24/25 1200 135/83 97.1 ??F (36.2 ??C) Forehead 81 11 96 % 05/24/25 1145 137/63 -- -- 89 18 100 % 05/24/25 1137 127/72 96.8 ??F (36 ??C) Temporal 86 16 96 % Labs 24hr: CBC: Lab Results Component Value Date WBC 6.0 05/25/2025 RBC 2.25 (L) 05/25/2025 HGB 8.0 (L) 05/25/2025 HCT 23.8 (L) 05/25/2025 MCV 105.8 (H) 05/25/2025 MCHC 33.6 05/25/2025 RDW 21.9 (H) 05/25/2025 PLT 77 (L) 05/25/2025 MPV 13.1 (H) 05/25/2025 BMP: Lab Results Component Value Date NA 137 05/25/2025 K 4.3 05/25/2025 CL 111 (H) 05/25/2025 CO2 19 (L) 05/25/2025 BUN 21 05/25/2025 CREATININE 0.93 05/25/2025 CALCIUM 7.7 (L) 05/25/2025 GLU 191 (H) 05/25/2025 Post op: 1 Day Post-Op Incision:dressing C/D/I Will remove dressing tomorrow * Stephen Pickard MD - 05/25/2025 10:33 AM EDTAssociated Problem(s): Diabetic foot infection (HCC) - Wound dehiscence over previous left TMA site. ESR, CRP normal. WBC wnl. Afebrile. No acute infection. Not on abx - podiatry saw - vascular following - MRI L foot 05/03 with mild marrow edema of metatarsal distal stump margins without evidence of osteomyelitis - Angiogram performed, minimal blood flow past the knee, recommend AKA - s/p AKA yesterday * Stephen Pickard MD - 05/25/2025 10:33 AM EDTAssociated Problem(s): S/P transmetatarsal amputation of foot, left (HCC) - Wound dehiscence over previous left TMA site. ESR, CRP normal. WBC wnl. Afebrile. No acute infection. Not on abx - podiatry saw - vascular following - MRI L foot 7 with mild marrow edema of metatarsal distal stump margins without evidence of osteomyelitis - Angiogram performed, minimal blood flow past the knee, recommend AKA - s/p AKA yesterday * Stephen Pickard MD - 05/25/2025 10:33 AM EDTAssociated Problem(s): PAD (peripheral artery disease) - vascular following - severe disease - AKA as above * Stephen Pickard MD - 05/25/2025 10:33 AM EDTAssociated Problem(s): Paroxysmal atrial fibrillation (HCC) - 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 - rate controlled on coreg * Stephen Pickard MD - 05/25/2025 10:33 AM EDTAssociated Problem(s): Type 2 diabetes mellitus, without long-term current use of insulin (HCC) - A1c 5.3 - diet controlled - not following FSBS * Stephen Pickard MD - 05/25/2025 10:33 AM EDTAssociated Problem(s): Hypertension associated with diabetes (HCC) - at goal on current rx * Stephen Pickard MD - 05/25/2025 10:33 AM EDTAssociated Problem(s): Acute on chronic heart failure with preserved ejection fraction (HCC) - Echo 2023 normal EF. - Euvolemic on exam * Stephen Pickard MD - 05/25/2025 10:33 AM EDTAssociated Problem(s): Stage 3a chronic kidney disease (HCC) - Baseline approx 0.9-1.2. - stable * Stephen Pickard MD - 05/25/2025 10:33 AM EDTAssociated Problem(s): 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 - History of CABG - continue lipitor, coreg, ranexa - no chest pain * Stephen Pickard MD - 05/25/2025 10:33 AM EDTAssociated Problem(s): Anemia in other chronic diseases classified elsewhere - low but stable - b12, folate, iron ok. Trasferrin down - INR up just a little. Smear ok * Stephen Pickard MD - 05/25/2025 10:33 AM EDTAssociated Problem(s): Pancytopenia (HCC) - low but stable - b12, folate, iron ok. Trasferrin down - INR up just a little. Smear ok * Stephen Pickard MD - 05/25/2025 10:28 AM EDT Images from the original note were not included. PROGRESS NOTE Assessment & Plan Diabetic foot infection (HCC) S/P transmetatarsal amputation of foot, left (HCC) - Wound dehiscence over previous left TMA site. ESR, CRP normal. WBC wnl. Afebrile. No acute infection. Not on abx - podiatry saw - vascular following - MRI L foot 05/03 with mild marrow edema of metatarsal distal stump margins without evidence of osteomyelitis - Angiogram performed, minimal blood flow past the knee, recommend AKA - s/p AKA yesterday PAD (peripheral artery disease) - vascular following - severe disease - AKA as above Paroxysmal atrial fibrillation (HCC) - 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 - rate controlled on coreg Type 2 diabetes mellitus, without long-term current use of insulin (HCC) - A1c 5.3 - diet controlled - not following FSBS Hypertension associated with diabetes (HCC) - at goal on current rx Chronic heart failure with preserved ejection fraction (HCC) - Echo 2023 normal EF. - Euvolemic on exam Stage 3a chronic kidney disease (HCC) - Baseline approx 0.9-1.2. - stable 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 - History of CABG - continue lipitor, coreg, ranexa - no chest pain Anemia in other chronic diseases classified elsewhere Pancytopenia (HCC) - low but stable - b12, folate, iron ok. Trasferrin down - INR up just a little. Smear ok Dispo: Handoff Completed: No Disposition Perspective - Medically ready for discharge: No Anticipated ready for discharge timeframe?: 2-3 days Ready for discharge when / if?: ok with vascular Estimated Date of Discharge: 05/27/2025 VTE Prophylaxis: PHARM VTE PROPH NON-CANDIDATE Subjective: Mild stump pain. No chest pain or sob. Objective: BP 145/67 (BP Location: Right arm, Patient Position: Semi Fowlers) Pulse 85 Temp 97.5 ??F (36.4??C) (Axillary) Resp 15 Ht 5' 2 (1.575 m) Wt 120 lb (54.4 kg) SpO2 98% BMI 21.95 kg/m?? I/O last 3 completed shifts: In: 2400 [I.V.:1450; Blood:600; IV Piggyback:350] Out: 1450 [Urine:750; Blood:700] Weight: 120 lb (54.4 kg) Constitutional: somnolent but wakes to answer questions. No distress. Cardiovascular: Normal rate and regular rhythm. Exam reveals no friction rub. No murmur heard. Pulmonary/Chest: Effort normal and breath sounds normal. No respiratory distress. There are no wheezes. Abdominal: Soft. Bowel sounds are normal. No distension. There is no tenderness. There is no rebound and no guarding. Musculoskeletal: left AKA Neurological: Grossly normal. Skin: Skin is warm and dry. No erythema. Labs: Laboratory data and diagnostic testing reviewed 05/25/25. Stephen Pickard MD 05/25/2025 10:28 AM * Gaye Fallon RN - 05/25/2025 6:59 AM EDT Pt resting. Handoff report rec'd. All needs met per staff. Will cont to monitor. * Stephen Pickard MD - 05/24/2025 7:56 AM EDTAssociated Problem(s): Diabetic foot infection (HCC) - Wound dehiscence over previous left TMA site. ESR, CRP normal. WBC wnl. Afebrile. No acute infection. Not on abx - podiatry saw - vascular following - MRI L foot 7/18 with mild marrow edema of metatarsal distal stump margins without evidence of osteomyelitis - Angiogram performed, minimal blood flow past the knee, recommend AKA - planning AKA today * Setphen Pickard MD - 05/24/2025 7:56 AM EDTAssociated Problem(s): S/P transmetatarsal amputation of foot, left (HCC) - Wound dehiscence over previous left TMA site. ESR, CRP normal. WBC wnl. Afebrile. No acute infection. Not on abx - podiatry saw - vascular following - MRI L foot 7/18 with mild marrow edema of metatarsal distal stump margins without evidence of osteomyelitis - Angiogram performed, minimal blood flow past the knee, recommend AKA - planning AKA today * Stephen Pickard MD - 05/24/2025 7:56 AM EDTAssociated Problem(s): PAD (peripheral artery disease) - vascular following - severe disease - plan for amputation as above * Stephen Pickard MD - 05/24/2025 7:56 AM EDTAssociated Problem(s): Paroxysmal atrial fibrillation (HCC) - 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 - rate controlled on coreg * Stephen Pickard MD - 05/24/2025 7:56 AM EDTAssociated Problem(s): Type 2 diabetes mellitus, without long-term current use of insulin (HCC) - A1c 5.3 - diet controlled - not following FSBS * Stephen Pickard MD - 05/24/2025 7:56 AM EDTAssociated Problem(s): Hypertension associated with diabetes (HCC) - at goal on current rx * Stephen Pickard MD - 05/24/2025 7:56 AM EDTAssociated Problem(s): Acute on chronic heart failure with preserved ejection fraction (HCC) - Echo 2023 normal EF. - Euvolemic on exam * Stephen Pickard MD - 05/24/2025 7:56 AM EDTAssociated Problem(s): Stage 3a chronic kidney disease (HCC) - Baseline approx 0.9-1.2. - stable * Stephen Pickard MD - 05/24/2025 7:56 AM EDTAssociated Problem(s): 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 - History of CABG - continue lipitor, coreg, ranexa - no chest pain * Stephen Pickard MD - 05/24/2025 7:56 AM EDTAssociated Problem(s): Anemia in other chronic diseases classified elsewhere - low but stable - b12, folate, iron ok. Trasferrin down - INR up just a little. Smear ok * Stephen Pickard MD - 05/24/2025 7:56 AM EDTAssociated Problem(s): Pancytopenia (HCC) - low but stable - b12, folate, iron ok. Trasferrin down - INR up just a little. Smear ok * Stephen Pickard MD - 05/24/2025 7:52 AM EDT Images from the original note were not included. PROGRESS NOTE Assessment & Plan Diabetic foot infection ([facility]) S/P transmetatarsal amputation of foot, left ([facility]) - Wound dehiscence over previous left TMA site. ESR, CRP normal. WBC wnl. Afebrile. No acute infection. Not on abx - podiatry saw - vascular following - MRI L foot 05/03 with mild marrow edema of metatarsal distal stump margins without evidence of osteomyelitis - Angiogram performed, minimal blood flow past the knee, recommend AKA - planning AKA today PAD (peripheral artery disease) - vascular following - severe disease - plan for amputation as above Paroxysmal atrial fibrillation (HCC) - 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 - rate controlled on coreg Type 2 diabetes mellitus, without long-term current use of insulin ([facility]) - A1c 5.3 - diet controlled - not following FSBS Hypertension associated with diabetes ([facility]) - at goal on current rx Chronic heart failure with preserved ejection fraction (HCC) - Echo 2023 normal EF. - Euvolemic on exam Stage 3a chronic kidney disease (HCC) - Baseline approx 0.9-1.2. - stable 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 - History of CABG - continue lipitor, coreg, ranexa - no chest pain Anemia in other chronic diseases classified elsewhere Pancytopenia (HCC) - low but stable - b12, folate, iron ok. Trasferrin down - INR up just a little. Smear ok Dispo: Handoff Completed: No Disposition Perspective - Medically ready for discharge: No Anticipated ready for discharge timeframe?: 2-3 days Ready for discharge when / if?: pending progress after surgery Estimated Date of Discharge: 05/26/2025 VTE Prophylaxis: Subjective: No chest pain or sob. Objective: BP 104/84 (BP Location: Right arm, Patient Position: Sitting) Pulse 90 Temp 97.6 ??F (36.4 ??C)(Oral) Resp 18 Ht 5' 2 (1.575 m) Wt 120 lb (54.4 kg) SpO2 98% BMI 21.95 kg/m?? I/O last 3 completed shifts: In: 780 [P.O.:780] Out: 450 [Urine:450] Weight: 120 lb (54.4 kg) Constitutional: somnolent but wakes to answer questions. No distress. Cardiovascular: Normal rate and regular rhythm. Exam reveals no friction rub. No murmur heard. Pulmonary/Chest: Effort normal and breath sounds normal. No respiratory distress. There are no wheezes. Abdominal: Soft. Bowel sounds are normal. No distension. There is no tenderness. There is no rebound and no guarding. Musculoskeletal: trace edema. Neurological: Grossly normal. Skin: Skin is warm and dry. No erythema. Labs: Laboratory data and diagnostic testing reviewed 05/24/25. Stephen Pickard MD 05/24/2025 7:52 AM * Gaye Fallon RN - 05/24/2025 7:44 AM EDT Pt resting. Handoff report rec'd. All needs met per staff. Will cont to monitor. * Adry Alcazar - 05/23/2025 3:47 PM EDT 05/23/25 1541 Palliative interventions Spiritual support Spiritual support and counseling by palliative professional for patient;Spiritualsupport and counseling by palliative professional for caregiver/family members;Spiritual support and counseling by palliative professional for inpatient treatment team Palliative Care Hand Stemmer Pastoral Care Interventions Spiritual-emotional support;Prayer Spiritual acuity Normal complexity Care Plan ([facility] Hand Stemmer will continue to follow.) Length of time in minutes spent with pt/family/chart review 30 Referred By (Palliative Care follow up.) Palliative Care counter tacker visited with patient, as well as her sister/Sarah and [id number]/Scot. Patient shared that her conversation with Dr. Wolf was reassuring to her today, and she is at peace with her decision to proceed with surgery on 05/24. Patient and family expressed their hope that pt will do well in rehab and be able to obtain a prosthetic leg within 2-3 months of the surgery. Pt and family spoke about their treasure, and recalled that God has helped them get through many difficult events in their lives, including the deaths of multiple family members. Patient once again expressed confidence that God will get her through this. Patient and family were receptive to prayer, which mortgage loan underwriter offered. [facility] counter tacker will continue to follow. Adry Alcazar, [facility] Hand Stemmer, Palliative Care * Nicole Zaidi PTA - 05/23/2025 1:56 PM EDT 05/23/25 1355 PT Subjective Note Type Follow Up Treatment Attempt Patient Room/Unit 3318 PT Subjective Comments #1 Pt tearful and expressed worry about surgery. Therapy delay reason Patient declined Plan Additional Comments Will need new PT orders and PT to see s/p surgery * Stephen Pickard MD - 05/23/2025 11:46 AM EDTAssociated Problem(s): Diabetic foot infection (HCC) - Wound dehiscence over previous left TMA site. ESR, CRP normal. WBC wnl. Afebrile. No acute infection. Not on abx - podiatry saw - vascular following - MRI L foot 7/18 with mild marrow edema of metatarsal distal stump margins without evidence of osteomyelitis - Angiogram performed, minimal blood flow past the knee, recommend AKA - planning tomorrow - patient still with a lot of anxiety about the procedure. Discussed pros and cons. Currently, she is in agreement. * Stephen Pickard MD - 05/23/2025 11:46 AM EDTAssociated Problem(s): S/P transmetatarsal amputation of foot, left (HCC) - Wound dehiscence over previous left TMA site. ESR, CRP normal. WBC wnl. Afebrile. No acute infection. Not on abx - podiatry saw - vascular following - MRI L foot 05/03 with mild marrow edema of metatarsal distal stump margins without evidence of osteomyelitis - Angiogram performed, minimal blood flow past the knee, recommend AKA - planning tomorrow - patient still with a lot of anxiety about the procedure. Discussed pros and cons. Currently, she is in agreement. * Stephen Pickard MD - 05/23/2025 11:46 AM EDTAssociated Problem(s): PAD (peripheral artery disease) - vascular following - severe disease - plan for amputation as above * Stephen Pickard MD - 05/23/2025 11:46 AM EDTAssociated Problem(s): Paroxysmal atrial fibrillation (HCC) - 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 - rate controlled on coreg * Stephen Pickard MD - 05/23/2025 11:46 AM EDTAssociated Problem(s): Type 2 diabetes mellitus, without long-term current use of insulin (HCC) - A1c 5.3 - diet controlled - not following FSBS * Stephen Pickard MD - 05/23/2025 11:46 AM EDTAssociated Problem(s): Hypertension associated with diabetes (HCC) - at goal on current rx * Stephen Pickard MD - 05/23/2025 11:46 AM EDTAssociated Problem(s): Acute on chronic heart failure with preserved ejection fraction (HCC) - Echo 2023 normal EF. - Euvolemic on exam * Stephen Pickard MD - 05/23/2025 11:46 AM EDTAssociated Problem(s): Stage 3a chronic kidney disease (HCC) - Baseline approx 0.9-1.2. - stable * Stephen Pickard MD - 05/23/2025 11:46 AM EDTAssociated Problem(s): 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 - History of CABG - continue lipitor, coreg, ranexa - no chest pain * Stephen Pickard MD - 05/23/2025 11:46 AM EDTAssociated Problem(s): Anemia in other chronic diseases classified elsewhere - low but stable - b12, folate, iron ok. Trasferrin down - INR up just a little. Smear ok * Stephen Pickard MD - 05/23/2025 11:46 AM EDTAssociated Problem(s): Pancytopenia (HCC) - low but stable - b12, folate, iron ok. Trasferrin down - INR up just a little. Smear ok * Stephen Pickard MD - 05/23/2025 11:43 AM EDT Images from the original note were not included. PROGRESS NOTE Assessment & Plan Diabetic foot infection (HCC) S/P transmetatarsal amputation of foot, left (HCC) - Wound dehiscence over previous left TMA site. ESR, CRP normal. WBC wnl. Afebrile. No acute infection. Not on abx - podiatry saw - vascular following - MRI L foot 05/03 with mild marrow edema of metatarsal distal stump margins without evidence of osteomyelitis - Angiogram performed, minimal blood flow past the knee, recommend AKA - planning tomorrow - patient still with a lot of anxiety about the procedure. Discussed pros and cons. Currently, she is in agreement. PAD (peripheral artery disease) - vascular following - severe disease - plan for amputation as above Paroxysmal atrial fibrillation (HCC) - 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 - rate controlled on coreg Type 2 diabetes mellitus, without long-term current use of insulin (HCC) - A1c 5.3 - diet controlled - not following FSBS Hypertension associated with diabetes (HCC) - at goal on current rx Chronic heart failure with preserved ejection fraction (HCC) - Echo 2023 normal EF. - Euvolemic on exam Stage 3a chronic kidney disease (HCC) - Baseline approx 0.9-1.2. - stable 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 - History of CABG - continue lipitor, coreg, ranexa - no chest pain Anemia in other chronic diseases classified elsewhere Pancytopenia (HCC) - low but stable - b12, folate, iron ok. Trasferrin down - INR up just a little. Smear ok Dispo: Handoff Completed: No Disposition Perspective - Medically ready for discharge: No Anticipated ready for discharge timeframe?: 3-4 days Ready for discharge when / if?: pending progress after surgery Estimated Date of Discharge: 05/26/2025 VTE Prophylaxis: PHARM VTE PROPH NON-CANDIDATE Subjective: Some foot pain. No chest pain or sob. Anxious about surgery. Objective: BP 137/77 (BP Location: Right arm, Patient Position: Sitting) Pulse 72 Temp 99 ??F (37.2 ??C) (Oral) Resp 16 Ht 5' 2 (1.575 m) Wt 120 lb (54.4 kg) SpO2 97% BMI 21.95 kg/m?? No intake/output data recorded. Weight: 120 lb (54.4 kg) Constitutional: Alert and oriented to person, place, and time. No distress. Cardiovascular: Normal rate and regular rhythm. Exam reveals no friction rub. No murmur heard. Pulmonary/Chest: Effort normal and breath sounds normal. No respiratory distress. There are no wheezes. Abdominal: Soft. Bowel sounds are normal. No distension. There is no tenderness. There is no rebound and no guarding. Musculoskeletal: trace edema. Neurological: Grossly normal. Skin: Skin is warm and dry. No erythema. Labs: Laboratory data and diagnostic testing reviewed 05/23/25. Stephen Pickard MD 05/23/2025 11:43 AM * Rosario Izaguirre MSW - 05/23/2025 11:10 AM EDT 05/23/25 1102 Ongoing Discharge Planning Evaluation Completed by CC/NORA Yes Repisodic List provided N/A - Resumption care. Patient active with post acute partner prior to admission Actual Discharge Plan 05/23/2025 NORA Update: Per pts RN, pt not wanting to have LAKA. Per [place] [employer] PRINTER, she spoke with pt and she is agreeable to surgery, but wanting to speak with her sister and son Christian. NORA called and spoke with pts sister Sarah (Adriana). Reports she and pts niece will be up today. Wanting staff to discuss the risk and benefits of surgery. NORA spoke with pt at bedside. Pt reports she will get the surgery tomorrow, but expressed her fears about being in pain. NORA discussed this some with pt. NORA called and updated Roxanna with [facility]. post acute placement consent form previouslycompleted. Pharmacy updated in [employer]. Pt will need ambulance transport at discharge. SW following * Lawrence Wolf MD - 05/23/2025 9:57 AM EDT Images from the original note were not included. Patient Name:Skyler Bautista : 1940 Admitting Diagnosis: Diabetic foot infection (HCC) INTERVAL HISTORY Patient seen and examined. She is agreeable to left AKA tomorrow if she can talk to her sister and son. MEDICAL HISTORY Scheduled Medications: ALPRAZolam 0.5 mg Oral Nightly aprepitant 40 mg Oral Once Preprocedure atorvastatin 40 mg Oral Nightly carvediloL 12.5 mg Oral BID [START ON 05/24/2025] ceFAZolin 1 g in sodium chloride 0.9% 500 mL irrigation 1 g Irrigation Once Intraprocedure dorzolamide-timoloL 1 Drop Ophthalmic BID gabapentin 400 mg Oral TID GLUCERNA Therapeutic 1 'box' Oral Q AM CRISTINE powder 1 Packet Oral BID latanoprost 1 Drop Ophthalmic Nightly pantoprazole 40 mg Oral Daily ranolazine 1,000 mg Oral Daily Allergy: Allergies Allergen Reactions Lidocaine Rash Last Recorded Vital Signs: Temp: (not working) Pulse: 88 BP: 137/77 Resp: 16 SpO2: 97 % O2 Flow Rate (L/min): 2 lpm Intake/Output Summary (Last 24 hours) at 05/23/2025 0957 Last data filed at 05/23/2025 0900 Gross per 24 hour Intake -- Output 450 ml Net -450 ml LABS AND RADIOLOGY Pertinent Labs: CBC: Recent Labs 05/23/25 0703 WBC 2.9* HGB 7.5* HCT 22.9* MCV 115.1* PLT 79* BMP: Recent Labs 05/22/25 0642 NA 138 K 4.1 CL 108* CO2 23 BUN 23 CREATININE 0.99 CALCIUM 8.4* GLU 111* Coagulation: Recent Labs 05/22/25 0642 INR 1.36* PHYSICAL EXAMINATION Physical Exam: No acute distress. Resting in the bedside chair. L TMA with necrotic suture line, dry, no foul odor or erythema. Rest of PE unchanged. MEDICAL DECISION MAKING Active Hospital Problems Diagnosis *Diabetic foot infection (HCC) Pancytopenia (HCC) Palliative care by specialist Goals of care, counseling/discussion Wound dehiscence S/P transmetatarsal amputation of foot, left (HCC) Critical limb ischemia of left lower extremity (HCC) Stage 3a chronic kidney disease (HCC) Anemia in other chronic diseases classified elsewhere PAD (peripheral artery disease) Chronic heart failure with preserved ejection fraction (HCC) Paroxysmal atrial fibrillation (HCC) 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 Type 2 diabetes mellitus, without long-term current use of insulin (HCC) Hypertension associated with diabetes (HCC) Assessment: PAD with failing left TMA S/p Aortogram, LLE angio, RLE angio 05/10 Hx L frontotemporal hemorrhagic contusion, bilateral SAH and SDH Hx frequent falls Paroxysmal atrial fibrillation Chronic CHF Plan: OR tomorrow for left AKA. NPO at midnight except medications. Discussed above plan with Dr. Pickard, Dr. Wolf and Care Coordination. Signed: Teo De La Torre PA-C 05/23/2025 9:57 AM Physician Documentation: I have reviewed the chief complaint, history of present illness, review of systems as well as the past medical/social/family history sections for this patient. I have examined this patient, and participated in the care of this patient. I have reviewed the pertinent clinical information including physical exam, labs, radiographic studies and the impression and plan, and I agree with the assessmentand plan as documented. This patient was seen in coordination with the physician physician assistant surgery/nurse practitioner. Had long discussion with patient and her sister regarding L AKA. Risks (including but not limited to non-healing wound, infection, blood loss and cardiopulmonary complications), benefits and alternatives were discussed with the patient and familty. Ultimately, patient and familty would like to proceed with L AKA tomorrow. Obtained consent with RN at bedside. LLE site marked. I also discussed a block with the patient and she would like to obtain one pre-op. NPO past hi. Lawrence Wolf MD * Lauren Turk OT - 05/23/2025 8:55 AM EDT 05/23/25 0855 OT Subjective Note Type Chart Review;Follow Up Treatment Attempt Patient Room/Unit 3318 Therapy delay reason Awaiting post procedure orders (comment) Clinical Course Noted planned AKA 05/24/25 * Leti Jefferson APRN - 05/22/2025 3:56 PM EDT Palliative Care Progress Note Consult Location: [facility] Length of Stay: 21 Assessment: Skyler Bautista is a 84 y.o. female with PVD who presented to the ED with dehiscence of left TMA. With initial surgery on 03/09/25, with revision on 03/18/25. Patient has been presented with the treatmentoptions of L AKA. Patient with multiple underlying co morbidities as well. [facility] consulted to assist with goals of care. With current plans for L AKA on Tuesday. Decisional Capacity:Fully Decisional Based on determination of decisional capacity, health care surrogateagent: Inactive Advance Directive Document: No documents present in chart, education provided, documents pending Sons, adult children majority rules, 11/18. Surrogate by: DEANDRA per KRS Palliative Plan of Care: Goals: Current plans for L AKA on Tuesday. Ongoing discussions surrounding surgical interventions vs comfort focused care. [facility] has offeredfamily meeting with patient and sons. Code: Full Code - needs reviewed. Symptom Needs: Per Primary Pain: Neurontin 300mg nightly + Acetaminophen prn + Oxy-IR 15mg q4 hrs prn (switch today per Primary) + Morphine 2mg IV q4 hrs prn (0 dose/24hrs) Opioid Induced Constipation: Start senna at bedtime Last noted BM 05/13/25. Psychosocial distress: anticipatory grief, change in QoL and loss on independence. Spiritual distress: See [facility] Hand Stemmer note for additional details. [facility] will continue to follow along. Subjective: [facility] follow up for support today. Voluntary goals of care discussion with patient, RN and [facility] team (RONAN Rider and myself) Patient resting in bedside chair, she is able to verbalize that she is tired today, and questioning related to heavy of a decision has been weighing on her mind. Patientshares prior decision to have surgery on Tuesday and at the same time repeatedly shares I can't fathom the idea, of having AKA and it would be horrible, and this is the worst decision on my life. Support provided. Patient shares worries that her son is struggling with decision and believes this is something she should do as if comes with old age. Attempted to support patient and encouragedher for ongoing consideration and prayer to guide her in her decision making. Reviewed post-op rehab course, with patient sharing she was not familiar with. [facility] has offered [facility] meeting with her sons involvement to help her express her worries/concerns she is having/feeling. Objective: Vitals: Vitals: 05/22/25 1424 BP: Pulse: 75 Resp: Temp: SpO2: Physical Exam: General: patient appears alert, comfortable and in no acute distress Neurological: alert and oriented to person, place, & time Lungs: clear to auscultation bilaterally Cardiac: heart tones regular Abdomen: abdomen is soft, nontender, and nondistended Extremities: no cyanosis, clubbing Medically Ready for discharge per Palliative Care Standpoint?: Yes Will follow-up in clinic?: No Medication recommendations?: per Primary Prescribing Care team at discharge?: per Primary Will sign off?: No Collaborated with bedside RN Thank you for the opportunity to participate in the care of this patient. We will follow along withyou. Please contact the palliative care service team with questions or concerns. Leti Jefferson APRN - Palliative Care Services Time-Based Billing Statement I spent 65 minutes in the care of this patient on this calendar day. Activities performed during this time include: Performing the appropriate exam, Counseling and educating, Referring and communicating with anotherprofessional, Documenting clinical information in the EHR, and Care coordination The total time documented above did not include the following activities which were also performed on this calendar day: None * Adry Alcazar 05/22/2025 3:47 PM EDT 05/22/25 2883 Palliative interventions Spiritual support Spiritual support and counseling by palliative professional for patient Palliative Care Social Work Total time in minutes spent in the provision of Palliative Care 60 Palliative Care Hand Stemmer Pastoral Care Interventions Goals of care counseling/education;Spiritual- emotional support Spiritual acuity Normal complexity Care Plan ([facility] Hand Stemmer will follow up 05/23) Length of time in minutes spent with pt/family/chart review 60 Referred By (Palliative Care follow up) Palliative Care COIN COLLECTOR/B.Jefferson and Hand Stemmer follow up with patient regarding her decision to proceed with amputation. Patient shared that this is the worst decision of her life and she cannot fathom what it will be like to look down and not see her leg. She reiterated her desire to have more time with her two sons, as well as her belief that having the procedure is the only path to achieving that goal. However, pt was unable to articulate her understanding of what her quality of life could look like after the amputation. After Palliative COIN COLLECTOR/Jefferson explained the possibilities of being bed or wheelchair bound, pt expressed fear - in both words and facial expression - that this would be a horrible way to live if it became reality. Patient reported that she has not shared her fears with sons. Hand Stemmer encouraged her to think about further conversation with them in light of this new worry. Patient stated that she will give this some thought today and tomorrow. Commissioned Sales Associate committed to returning to bedside on 05/23 in the morning to see how pt feels about a possible family meeting. Patient confirmed that her treasure remains strong, and that she trusts that the Lord will be with herin whatever path she chooses. Adry Alcazar, [facility] Hand Stemmer, Palliative Care * Coleman Moss COTA - 05/22/2025 1:08 PM EDT 05/22/25 1248 OT Subjective Note Type Chart Review;Treatment/Progress Patient Room/Unit 3318 OT Subjective Comments #1 Upon arrival, pt found resting in bed and agreeable to participate in OT with encouragement. Very drowsy this date. Discharge Information This progress note will serve as the discharge summary if no further therapy is provided prior to the patient being discharged from the hospital. Admitting Diagnosis Patient is an 84 year old female admitted 04/30/25 with diabetic foot infection, PAD and wound dehiscence. Deciding on no intervention vs BKA vs AKA Past Med Hx Afib, PAD, HFpEF, L TMA 03/2025, R femur fx 03/2024, CABG 05/2024, emphysema, DANTE, Afib Diagnostic Testing MRI L foot: 1. Status post transmetatarsal amputation. There is mild marrow edema the metatarsal distal stump margins without evidence of osteomyelitis. 2. Dorsal soft tissue woundof the distal stump without an abscess. Clinical Course Noted planned AKA 05/24/25 Precautions Therapy Precautions Yes Weight Bearing Status Weight bearing as tolerated Precaution Info Given Weight bearing;To use call light to request assistance with all mobility Other precautions per podiatry, LLE WBAT Cognition Orientation Impaired Disoriented to Time;Situation;Place (knows she is in the hospital but can't name which; states it's July) Arousal Impaired Arousal Impairment Lethargic;Delayed responses to stimuli Safety Awareness Impaired Safety Awareness Impairment Minimal Impairments: Needs up to 25% input/direction from therapist in order to identify safety issues and maintain safety. Affect/Ability to cope Impaired Affect/Ability to cope impairment Flat;Distracted;Does not make eye contact Command Following Impaired Command following impairment Minimal Impairments: Needs up to 25% input/direction from therapist inorder to follow single step commands.;Moderate Impairments: Needs 25-75% input/direction from therapist in order to follow single step commands. Memory Impaired Memory impairment Poor short term memory;Decreased recall of recent events;Decreased recall of prior level of function Communication Intact Vision reports poor vision Additional comments Very drowsy this date and required frequent repeated questions and cues to keepeyes open Pain Screening PT/OT Patient Currently in Pain Yes Additional Comments Feels off Observation Presentation Patient resting in bed Posture R side lying Observation Bed alarm;Telemetry Vitals c/o dizziness but BP114/79 Bed Mobility Supine to Sit Minimal assistance;With cues;Head of bed flat Additional Comments Pt required Min A to sit on EOB, CGA to maintain sitting balance however pt didhave several minor LOB L/R at EOB requiring Min A occasionally but mostly self-correcting.Max A to scoot to EOB. Transfers Sit to Stand Minimal assistance;With verbal cues Stand to Sit Minimal assistance;With verbal cues Bed to/from chair Minimal assistance;With verbal cues;Walker Additional Comments Cues for hand placement Gait Gait Minimal assistance;With verbal cues Assistive Device 2 Wheel walker Additional Comments Pt took small steps over from EOB to chair with 2ww, cues for safety. Balance Sitting Balance 1+/5 supports self with >50% effort using UE, requires therapist assistance Standing Balance 1+/5>50% (minimal assistance) PT/OT Mobility Documentation PT/OT Mobility Score 6 ADL Interventions Where Assessed Edge of bed Feeding Assistance Moderate;supervisor drapery hanging/use appropriate utensil;Bring food/cup to mouth;Scoop/spear food with utensil;Set up (Pt required assist to open container and get scoops of sherbert on spoon. Pt frequently trying to scoop spoon against table or cup of water and required cues for placing spoon in sherbert. Feel thatthis was d/t pt's drowsy/lethargic state.) Grooming Assistance Minimal;Hair care;Washing hands;Washing face;Set up;With verbal cues (Min A for hair care and sitting balance) UE Bathing Assistance Set up;With verbal cues;Minimal;LUE;RUE;Abdomen;Chest (Min A for AAROM of LUE to wash underarms- pt is very guarded with LUE movements. Pt donned deodorant but required cues to first take cap off.) LE Bathing Assistance With verbal cues;Set up;Maximal;Buttock (BM smear with pt unaware, completed in standing) UE Dressing Assistance Set up;With verbal cues;Minimal;Pull around back;Fasteners LE Dressing Assistance Set up;With verbal cues;Maximal;Don/doff R sock Toileting (declined TF to BSC but did not BM smear) Interventions Balance Training Dynamic sitting balance, fxl reaching, ADL Transfers, fxl mobility Fine Motor Training Min A for use of tools for ADL's Equipment Training 2ww Transfer Training bed<chair Functional Status Score (FSS-ICU) Is the patient currently in ICU? No AM PAC: How much help from another person does the patient currently need... putting on and taking off regular lower body clothing? 2 bathing (including washing, rinsing, drying)? 2 toileting, which includes using toilet, bedpan or urinal? 2 putting on and taking off regular upper body clothing? 3 taking care of personal grooming such as brushing teeth? 3 eating meals? 3 AM PAC DAILY ACTIVITY SCORING Daily Activity Raw Score 15 AM PAC Daily Activity CMS 0-100% Functional Percentage 56.46 AM PAC Daily Activity CMS G Code Modifier CK Education Education To use call light to request assistance with all mobility;Patient/Family Education;Role of Therapy;Safety with mobility;Cues for proper technique;Discharge planning;Up with assistance only;Safe and proper technique with transfers;Safe and proper posture/positioning;Educated on benefits ofmobility, upright positioning, and getting out of bed;Energy conservation Patient Safety Patient left in chair with needs in reach;Chair/personal alarm activated Assessment Assessment Decreased ADL status;Decreased UE ROM;Decreased UE strength;Decreased Safe judgement during ADL;Decreased endurance;Decreased self-care transfers;Decreased high-level ADLs;Decreased fine motor control;Decreased Coordination Prognosis Good;With continued OT s/p acute discharge Rationale for Skilled Therapy Fall Risk;Balance Deficits;Not safe with independent transfers;Not safe ambulating independently;Decreased endurance and tolerance to activity;Able to make measurable improvements;Needs intensive therapy;Requires multi-disciplinary team;Requires physical assistance with ADLs;Needs verbal/tactile cues for ADL's Additional Comments Pt very drowsy and lethargic this date resulting in an increased need of assistfor most ADL's and sitting balance. Pt is scheduled for L AKA on 05/24 and will require OT re-eval asappropriate. ADL Goals Pt Will Perform Upper Body Grooming Standing at sink;Contact guard;Not met Pt Will Perform Upper Body Bathing With setup;Not met Pt Will Perform Lower Body Bathing Minimal assistance;Not met Pt Will Perform LE Dressing Minimal assistance;Not met Functional Transfer Goals Pt Will Perform All Functional Transfers Contact guardance;Not met Plan Treatment Interventions ADL retraining;Functional transfer training;UE strengthening/ROM;Endurance training;Cognitive reorientation;Patient/Family training;Fine motor coordination activities;Compensatory technique education OT Frequency Needs an Occupational Therapist to see (due for 14 day re-assessment, L AKA is scheduled on 05/24) Recommendation OT Recommendation Moderate frequency, moderate intensity five days a week therapy recommended. Time In / Time Out [id number] IP OT Individual Treatment Minutes 42 * Stephen Pickard MD - 05/22/2025 10:29 AM EDTAssociated Problem(s): Diabetic foot infection (HCC) - Wound dehiscence over previous left TMA site. ESR, CRP normal. WBC wnl. Afebrile. No acute infection. Not on abx - podiatry saw - vascular following - MRI L foot 7/18 with mild marrow edema of metatarsal distal stump margins without evidence of osteomyelitis - Angiogram performed, minimal blood flow past the knee, recommend AKA - planning 05/24 * Stephen Pickard MD - 05/22/2025 10:29 AM EDTAssociated Problem(s): S/P transmetatarsal amputation of foot, left (HCC) - Wound dehiscence over previous left TMA site. ESR, CRP normal. WBC wnl. Afebrile. No acute infection. Not on abx - podiatry saw - vascular following - MRI L foot 7/18 with mild marrow edema of metatarsal distal stump margins without evidence of osteomyelitis - Angiogram performed, minimal blood flow past the knee, recommend AKA - planning 05/24 * Stephen Pickard MD - 05/22/2025 10:29 AM EDTAssociated Problem(s): PAD (peripheral artery disease) - vascular following - severe disease - plan for amputation as above * Stephen Pickard MD - 05/22/2025 10:29 AM EDTAssociated Problem(s): Paroxysmal atrial fibrillation (HCC) - 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 - rate controlled on coreg * Stephen Pickard MD - 05/22/2025 10:29 AM EDTAssociated Problem(s): Type 2 diabetes mellitus, without long-term current use of insulin (HCC) - A1c 5.3 - diet controlled - not following FSBS * Stephen Pickard MD - 05/22/2025 10:29 AM EDTAssociated Problem(s): Hypertension associated with diabetes (HCC) - at goal on current rx at 128/67 * Stephen Pickard MD - 05/22/2025 10:29 AM EDTAssociated Problem(s): Acute on chronic heart failure with preserved ejection fraction (HCC) - Echo 2023 normal EF. - Euvolemic on exam * Stephen Pickard MD - 05/22/2025 10:29 AM EDTAssociated Problem(s): Stage 3a chronic kidney disease (HCC) - Baseline approx 0.9-1.2. - stable * Stephen Pickard MD - 05/22/2025 10:29 AM EDTAssociated Problem(s): 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 - History of CABG - continue lipitor, coreg, ranexa - no chest pain * Stephen Pickard MD - 05/22/2025 10:29 AM EDTAssociated Problem(s): Anemia in other chronic diseases classified elsewhere - low but stable - b12, folate, iron ok. Trasferrin down - INR up just a little. Smear pending * Stephen Pickard MD - 05/22/2025 10:29 AM EDTAssociated Problem(s): Pancytopenia (HCC) - low but stable - b12, folate, iron ok. Trasferrin down - INR up just a little. Smear pending * Stephen Pickard MD - 05/22/2025 10:27 AM EDT Images from the original note were not included. PROGRESS NOTE Assessment & Plan Diabetic foot infection ([facility]) S/P transmetatarsal amputation of foot, left ([facility]) - Wound dehiscence over previous left TMA site. ESR, CRP normal. WBC wnl. Afebrile. No acute infection. Not on abx - podiatry saw - vascular following - MRI L foot 05/03 with mild marrow edema of metatarsal distal stump margins without evidence of osteomyelitis - Angiogram performed, minimal blood flow past the knee, recommend AKA - planning 05/24 PAD (peripheral artery disease) - vascular following - severe disease - plan for amputation as above Paroxysmal atrial fibrillation ([facility]) - 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 - rate controlled on coreg Type 2 diabetes mellitus, without long-term current use of insulin ([facility]) - A1c 5.3 - diet controlled - not following FSBS Hypertension associated with diabetes ([facility]) - at goal on current rx at 128/67 Chronic heart failure with preserved ejection fraction ([facility]) - Echo 2023 normal EF. - Euvolemic on exam Stage 3a chronic kidney disease ([facility]) - Baseline approx 0.9-1.2. - stable 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 - History of CABG - continue lipitor, coreg, ranexa - no chest pain Anemia in other chronic diseases classified elsewhere Pancytopenia (HCC) - low but stable - b12, folate, iron ok. Trasferrin down - INR up just a little. Smear pending Dispo: Handoff Completed: No Disposition Perspective - Medically ready for discharge: No Anticipated ready for discharge timeframe?: days away Ready for discharge when / if?: pending progress after AKA Estimated Date of Discharge: 05/26/2025 VTE Prophylaxis: PHARM VTE PROPH NON-CANDIDATE Subjective: Left shoulder pain - chronic. Mild foot pain. No sob. Objective: BP 128/67 (BP Location: Left arm, Patient Position: Lying right side) Pulse 76 Temp 98.4 ??F (36.9 ??C) (Oral) Resp 16 Ht 5' 2 (1.575 m) Wt 120 lb (54.4 kg) SpO2 97% BMI 21.95 kg/m?? I/O last 3 completed shifts: In: 240 [P.O.:240] Out: - Weight: 120 lb (54.4 kg) Constitutional: Alert and oriented to person, place, and time. No distress. Cardiovascular: Normal rate and regular rhythm. Exam reveals no friction rub. No murmur heard. Pulmonary/Chest: Effort normal and breath sounds normal. No respiratory distress. There are no wheezes. Abdominal: Soft. Bowel sounds are normal. No distension. There is no tenderness. There is no rebound and no guarding. Musculoskeletal: No edema. Neurological: Grossly normal. Skin: Skin is warm and dry. No erythema. Labs: Laboratory data and diagnostic testing reviewed 05/22/25. Stephen Pickard MD 05/22/2025 10:27 AM * Felicia Tripp RD,LD - 05/22/2025 10:22 AM EDT [facility] Nutrition Reassessment Nutrition Problem/Diagnosis: Nutrition Diagnosis Problem 1: Increased nutrient needs (specify) (kcal and pro) related to increased demand for energy/nutrients as evidenced by wounds. Status: New nutrition diagnosis Nutrition Prescription: Kcals: 4359-2300 kcal (25-30 kcal/kg, based on 54.4 kg) Protein (g): 65-82 gm Protein needs based on: 1.2-1.5 gm/kg Fluid (ml): 1 ml/kcal or per MD Other (comment): Based on 54.4 kg Plan/Interventions: Meals and Snacks: Regular Medical Food Supplements: Cristine, Glucerna Therapeutic Medical Food/Supplement Freq: daily Nutrition-Related Medication Management: protonix Nutrition Education: Supplements, Increased nutrients for wound healing Collaboration And Referral Of Nutrition Care: Collaboration with other providers Nutrition Discharge Instructions: Continue to eat foods high in protein. Continue to drink protein shakes 1-2x per day for additional protein. Skyler Bautista is a 84 y.o. female patient. Admit Diagnosis: Wound dehiscence [T81.30XA] Diabetic foot infection (HCC) [E11.628, L08.9] Subjective: Subjective Comment: Follow-up. Remote assessment completed. Events reviewed in chart. Noted pt declining ONS- will change frequency to daily. [place]land for Lina ZAPIEN 05/24. Will follow. Anthropometric Measurements: Height: 5' 2 (157.5 cm) Weight: 120 lb (54.4 kg) BMI (Calculated): 21.95 BMI Assessment: 18.5-24.9 Normal IBW +/- 10%: 110 lb (49.9 kg) % IBW: 109 Food/Nutrition Related History: Dietary Orders Ordered Regular Diet DIET EFFECTIVE NOW 05/21/25 09 GLUCERNA Therapeutic oral supplement 1 'box' Oral Q AM 1 'box' at 05/19/25 0921 CRISTINE powder oral supplement 1 Packet Oral BID 1 Packet at 05/20/25 1921 Food Insecurity Within the past 12 months, you worried that your food would run out before you got the money to buymore.: Never true Within the past 12 months, the food you bought just didn't last and you didn't have money to get more.: Never true % Avg Meals Consumed: 68 % (avg of 8 meals) Supplement Acceptance: declining Tube Feeding?: No TPN?: No Food Allergies: NKFA Nutrition Focused Physical Findings: LDAs- Active NG/OG/NJ,Wound,Pressure Injury,or Drain Wound Duration Incision/Wound Amputation Foot Left 22 days Incision/Wound Skin tear Hand Posterior;Right 22 days Incision/Wound MASD Coccyx Mid gluteal split 15 days I/O last 3 completed shifts: In: 240 [P.O.:240] Out: - Edema:Right Lower Extremity Edema: Trace Left Lower Extremity Edema: +1 Abdomen: Abdominal/GI Abdomen Inspection: Soft Bowel Sounds (All Quadrants): Active Abdominal palpation: Soft Nausea: No Constipation: No When was last BM? (Date): 05/21/25 Stool Assessment: Stool Occurrence: 1 Stool Appearance: Type 5 [place] Stool Chart Stool Color: Brown Stool Amount: Small Biochemical Data/Medical Tests: Pertinent Meds: protonix Pertinent Labs: glu 111, Cl 108, Ca 8.4 Clinical Course: Clinical Course: Pt admitted w/ L TMA dehiscence. Podiatry recommending BKA, pt refusing. LE angio,recommends AKA. Palliative care consulted. Vas s/o unless patient agrees to BKA. Plan for AKA. L AKA scheduled for 05/24. * Nicole Zaidi PTA - 05/21/2025 2:51 PM EDT 05/21/25 1451 PT Subjective Note Type Treatment/Progress Patient Room/Unit 3318 PT Subjective Comments #1 Agreeable. Discharge Information This progress note will serve as the discharge summary if no further therapy is provided prior to the patient being discharged from the hospital. Admitting Diagnosis Patient is an 84 year old female admitted 04/30/25 with diabetic foot infection, PAD and wound dehiscence. Deciding on no intervention vs BKA vs AKA Past Med Hx Afib, PAD, HFpEF, L TMA 03/2025, R femur fx 03/2024, CABG 05/2024, emphysema, DANTE, Afib Clinical Course Noted planned AKA 05/24/25 Pain Screening PT/OT Patient Currently in Pain Yes Pain Rating Patient unable to rate pain Pain Location Foot Pain Orientation Left Pain Intervention(s) Repositioned;Ambulation/Increased activity;Emotional support Cognition Orientation Intact Arousal Normal Safety Awareness Impaired Safety Awareness Impairment Minimal Impairments: Needs up to 25% input/direction from therapist in order to identify safety issues and maintain safety. Affect/Ability to cope Impaired Affect/Ability to cope impairment Flat Command Following Impaired Command following impairment Minimal Impairments: Needs up to 25% input/direction from therapist inorder to follow single step commands. Communication Intact Precautions Weight Bearing Status Weight bearing as tolerated Precaution Info Given Yes;Weight bearing;To use call light to request assistance with all mobility Additional Comments pt only does heel WB left LE Observation Presentation Patient resting in bed Posture side lying Observation Bed alarm;Telemetry Vitals HR 130 post transfer back to bed- pt feels SOB but Sats 98-99% Bed Mobility Rolling Stand by assist;Head of bed slightly elevated;With bed rails Supine to Sit Stand by assist;With bed rails;Head of bed slightly elevated Sit to Supine Stand by assist;With bed rails;Head of bed flat Additional Comments SOSOB (I); assisted to don sock left foot (toes cut out) Transfers Sit to Stand Minimal assistance;With verbal cues;With raised bed height Stand to Sit Minimal assistance;With verbal cues Bed to/from chair Minimal assistance;With verbal cues Additional Comments pt stood with cues for hand placement. Used left heel for balance with sit to stand but then able to stand with holding left food up. Worked on trying to Hop in place on right LE-pt able to push through arms and bend knee to lift right heel but unable to clear food. Tried 3x then sat & rested. Pt then amb 3 ft fwds/bwkds with min A and assist for walker. Pt then transfered bed to [facility] back to bed. (I) with hygiene. Gait Gait Minimal assistance;With verbal cues Gait Distance (Feet) 3 Feet Assistive Device 2 Wheel walker Pattern Slow margarito;Step to;Decreased step length R;Decreased step length L;Flexed posture Weight Bearing Status Weight bearing as tolerated (pt bearing wt on left heel) Functional Status Score (FSS-ICU) Is the patient currently in ICU? No PT/OT Mobility Documentation PT/OT Mobility Score 5 AM PAC: How much help from another person does the patient currently need... turning from your back to your side while in a flat bed without using bedrails? 3 moving from lying on your back to sitting on the side of a flat bed without using bedrails? 3 moving to and from a bed to a chair? 3 standing up from a chair using your arms (e.g. wheelchair, or bedside chair)? 3 need to walk in hospital room? 2 climbing 3-5 steps with a railing? 1 AM PAC: BASIC MOBILITY SCORING AM PAC Moblity Raw Score 15 AM PAC Mobility CMS 0-100% Functional Percentage 50.4 AM PAC Mobility CMS G Code Modifier CK Balance Sitting Balance 2+/5 supports self with 1 UE Standing Balance 1+/5>50% (minimal assistance) Exercise Exercise No Education Education To use call light to request assistance with all mobility;Patient/Family Education;Role of Therapy;Safety with mobility;Cues for proper technique;Up with assistance only;Safe and proper post ure/positioning;Safe and proper technique with transfers;Safe and proper technique with gait pattern;Educated on benefits of mobility, upright positioning, and getting out of bed Additional Comments Edu after AKA will need to try to keep leg straight so hip flexors don't get tight. Patient Safety Patient Safety Patient in bed with needs in reach;Bed alarm activated Assessment Assessment Decreased gait;Decreased functional mobility;Decreased balance;Decreased RightLower Extremity strength;Decreased Left Lower Extremity strength;Decreased activity tolerance ;Decreased safety judgement ;Decreased cognition Prognosis Fair;With continued PT s/p acute discharge Progress Slow progress toward goals, decreased activity tolerance Rationale for Skilled Therapy Fall Risk;Balance Deficits;Not safe with independent transfers;Not safe ambulating independently;Able to make measurable improvements;Decreased endurance and tolerance to activity Additional Comments Unable to hop on right foot this date. Will need to con't to practice keeping left LE off floor. Will need assist of 2 post AKA. Goals Will Perform Supine To Sit Supervision;Not met Will Perform Sit to Supine With minimal assist;Met Will Perform Sit to Stand With stand by assist;Not met Will Transfer Bed/Chair With contact guard assistance;Not met Will Ambulate With 2 wheel walker;1-10 feet;With moderate assist;Partly met Time for Goal Achievement/Duration of Treatment after AKA 05/24/25 or 05/31 if no surgery Plan Treatment/Interventions Continue with current plan of care PT Frequency 3-5x/week Recommendation PT Recommendation Moderate frequency, moderate intensity five days a week therapy recommended. Time In / Time Out [id number] IP PT Treatment Minutes 26 The total time spent caring for this patient included but was not limited to medical record review;hands-on treatment;communication and education with patient and/or family/caregiver;assessment of the patient's progress since the last session;communication with nursing and/or care coordination/social work regarding patient status and discharge planning * Stephen Pickard MD - 05/21/2025 1:15 PM EDTAssociated Problem(s): Diabetic foot infection (HCC) - Wound dehiscence over previous left TMA site. ESR, CRP normal. WBC wnl. Afebrile. No acute infection. Not on abx - podiatry saw - vascular following - MRI L foot 7/18 with mild marrow edema of metatarsal distal stump margins without evidence of osteomyelitis - Angiogram performed, minimal blood flow past the knee, recommend AKA - now planned 05/24 * Stephen Pickard MD - 05/21/2025 1:15 PM EDTAssociated Problem(s): S/P transmetatarsal amputation of foot, left (HCC) - Wound dehiscence over previous left TMA site. ESR, CRP normal. WBC wnl. Afebrile. No acute infection. Not on abx - podiatry saw - vascular following - MRI L foot 18 with mild marrow edema of metatarsal distal stump margins without evidence of osteomyelitis - Angiogram performed, minimal blood flow past the knee, recommend AKA - now planned 05/24 * Stephen Pickard MD - 05/21/2025 1:15 PM EDTAssociated Problem(s): PAD (peripheral artery disease) - vascular following - severe disease * Stephen Pickard MD - 05/21/2025 1:15 PM EDTAssociated Problem(s): Paroxysmal atrial fibrillation (HCC) - Heart rate controlled. - 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 - QUALITY CONTROL ASSOCIATE coreg * Stephen Pickard MD - 05/21/2025 1:15 PM EDTAssociated Problem(s): Type 2 diabetes mellitus, without long-term current use of insulin (HCC) - A1c 5.3 - diet controlled - not following FSBS * Stephen Pickard MD - 05/21/2025 1:15 PM EDTAssociated Problem(s): Hypertension associated with diabetes (HCC) - at goal on current rx * Stephen Pickard MD - 05/21/2025 1:15 PM EDTAssociated Problem(s): Acute on chronic heart failure with preserved ejection fraction (HCC) - Echo 2023 normal EF. - Euvolemic on exam * Stephen Pickard MD - 05/21/2025 1:15 PM EDTAssociated Problem(s): Stage 3a chronic kidney disease (HCC) - Baseline approx 0.9-1.2. - stable * Stephen Pickard MD - 05/21/2025 1:15 PM EDTAssociated Problem(s): 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 - History of CABG - continue lipitor, coreg, ranexa - no chest pain * Stephen Pickard MD - 05/21/2025 1:15 PM EDTAssociated Problem(s): Anemia in other chronic diseases classified elsewhere - low but stable - b12, folate, iron ok. Trasferrin down - check smear, INR * Stephen Pickard MD - 05/21/2025 1:15 PM EDTAssociated Problem(s): Pancytopenia (HCC) - low but stable - b12, folate, iron ok. Trasferrin down - check smear, INR * Stephen Pickard MD - 05/21/2025 1:07 PM EDT Images from the original note were not included. PROGRESS NOTE Assessment & Plan Diabetic foot infection ([facility]) S/P transmetatarsal amputation of foot, left ([facility]) - Wound dehiscence over previous left TMA site. ESR, CRP normal. WBC wnl. Afebrile. No acute infection. Not on abx - podiatry saw - vascular following - MRI L foot 05/03 with mild marrow edema of metatarsal distal stump margins without evidence of osteomyelitis - Angiogram performed, minimal blood flow past the knee, recommend AKA - now planned 05/24 PAD (peripheral artery disease) - vascular following - severe disease Paroxysmal atrial fibrillation ([facility]) - Heart rate controlled. - 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 - QUALITY CONTROL ASSOCIATE coreg Type 2 diabetes mellitus, without long-term current use of insulin ([facility]) - A1c 5.3 - diet controlled - not following FSBS Hypertension associated with diabetes ([facility]) - at goal on current rx Chronic heart failure with preserved ejection fraction ([facility]) - Echo 2023 normal EF. - Euvolemic on exam Stage 3a chronic kidney disease ([facility]) - Baseline approx 0.9-1.2. - stable 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 - History of CABG - continue lipitor, coreg, ranexa - no chest pain Anemia in other chronic diseases classified elsewhere Pancytopenia (HCC) - low but stable - b12, folate, iron ok. Trasferrin down - check smear, INR Dispo: Handoff Completed: No Disposition Perspective - Medically ready for discharge: No Anticipated ready for discharge timeframe?: 4-5 days Ready for discharge when / if?: pending progress after AKA Estimated Date of Discharge: 05/26/2025 VTE Prophylaxis: PHARM VTE PROPH NON-CANDIDATE Subjective: Some leg pain. No chest pain or sob. Objective: BP 130/59 (BP Location: Right arm, Patient Position: Semi Fowlers) Pulse 77 Temp 98.1 ??F (36.7??C) (Oral) Resp 16 Ht 5' 2 (1.575 m) Wt 120 lb (54.4 kg) SpO2 94% BMI 21.95 kg/m?? I/O last 3 completed shifts: In: 240 [P.O.:240] Out: 400 [Urine:400] Weight: 120 lb (54.4 kg) Constitutional: Alert and oriented to person, place, and time. No distress. Cardiovascular: Normal rate and regular rhythm. Exam reveals no friction rub. Systolic murmur heard. Pulmonary/Chest: Effort normal and breath sounds normal. No respiratory distress. There are no wheezes. Abdominal: Soft. Bowel sounds are normal. No distension. There is no tenderness. There is no rebound and no guarding. Musculoskeletal: left TMA Neurological: Grossly normal. Skin: Skin is warm and dry. No erythema. Labs: Laboratory data and diagnostic testing reviewed 05/21/25. Stephen Pickard MD 05/21/2025 1:07 PM * Narda Curry RN - 05/21/2025 12:00 AM EDT Pt now interested in having surgery that was previously canceled. Previous RN messaged Dr. Kinney via Secure Chat to update. Per Dr. Kinney, keep NPO at midnight and he will check with Dr. Wolf. Pt made NPO with meds for potential procedure. * Carlos Manuel Landaverde II, MD - 05/20/2025 12:54 PM EDTAssociated Problem(s): Diabetic foot infection (HCC) Wound dehiscence over previous left TMA site. ESR, CRP normal. WBC wnl. Afebrile. No acute infection. - podiatry consulted - vascular consulted - MRI L foot 718 with mild marrow edema of metatarsal distal stump margins without evidence of osteomyelitis - Angiogram performed, minimal blood flow past the knee, recommend AKA but pt declining -Pain control ongonig ; increased oxycodone -D/w vascular surgery as pt now agreeable to AKA, pt states will happen 05/24 (?) - was on schedule for AM but declining to have AKA tomorrow , d/w vascular * Carlos Manuel Landaverde II, MD - 05/20/2025 12:54 PM EDTAssociated Problem(s): S/P transmetatarsal amputation of foot, left (HCC) Wound dehiscence over previous left TMA site. ESR, CRP normal. WBC wnl. Afebrile. No acute infection. - podiatry consulted - vascular consulted - MRI L foot 718 with mild marrow edema of metatarsal distal stump margins without evidence of osteomyelitis - Angiogram performed, minimal blood flow past the knee, recommend AKA but pt declining -Pain control ongonig ; increased oxycodone -D/w vascular surgery as pt now agreeable to AKA, pt states will happen 05/24 (?) - was on schedule for AM but declining to have AKA tomorrow , d/w vascular * Carlos Manuel Landaverde II, MD - 05/20/2025 12:54 PM EDTAssociated Problem(s): PAD (peripheral artery disease) History of angiogram 01/2025. - vascular consulted - arterial studies 05/02 with significant PAD - COMPLIANCE PARALEGAL stenosis Patent popliteal and TPT with severe stenosis Patent proximal QUALITY CONTROL ASSOCIATE but occluded distally without reconstitution Patent DAREN with multifocal severe stenosis, occlusion at the level of the ankle and no distal reconstitution Significant small vessel disease in L foot * Carlos Manuel Landaverde II, MD - 05/20/2025 12:54 PM EDTAssociated Problem(s): Paroxysmal atrial fibrillation (HCC) Heart rate controlled. 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 - QUALITY CONTROL ASSOCIATE coreg - cardiac monitoring -Rate controlled 05/20/25 * Carlos Manuel Landaverde II, MD - 05/20/2025 12:54 PM EDTAssociated Problem(s): Type 2 diabetes mellitus, without long-term current use of insulin (HCC) Last A1c 4.8 in 03/2024. QUALITY CONTROL ASSOCIATE meds include none. - hold off on FSBS, correctional algorithm - rpt A1c 5.3 - stable 05/20/25 * Carlos Manuel Landaverde II, MD - 05/20/2025 12:54 PM EDTAssociated Problem(s): Hypertension associated with diabetes (HCC) Well controlled. - QUALITY CONTROL ASSOCIATE coreg - monitor and adjust as needed -BP stable 05/20/25 * Carlos Manuel Landaverde II, MD - 05/20/2025 12:54 PM EDTAssociated Problem(s): Acute on chronic heart failure with preserved ejection fraction (HCC) Echo 2023 normal EF. Euvolemic on exam - monitor I/O, daily weights - diuresis: QUALITY CONTROL ASSOCIATE lasix on hold - QUALITY CONTROL ASSOCIATE coreg -Stable 05/20/25 * Carlos Manuel Landaverde II, MD - 05/20/2025 12:54 PM EDTAssociated Problem(s): Stage 3a chronic kidney disease (HCC) Cre 1.05 at admit. Baseline approx 0.9-1.2. -Cr 0.91 * Carlos Manuel Landaverde II, MD - 05/20/2025 12:54 PM EDTAssociated Problem(s): 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 History of CABG - continue lipitor, coreg, ranexa * Carlos Manuel Landaverde II, MD - 05/20/2025 12:54 PM EDTAssociated Problem(s): Wound dehiscence Continue to monitor Cont neurontin 400TID Increased oxycodone 10>15mg dose, improved sx * Carlos Manuel Landaverde II, MD - 05/20/2025 12:54 PM EDTAssociated Problem(s): Anemia in other chronic diseases classified elsewhere Continue to monitor Hgb 8.7> 7.6, no report of blood loss -Check b12/folate/iron * Rosario Izaguirre MSW - 05/20/2025 11:51 AM EDT 05/20/25 1146 Ongoing Discharge Planning Evaluation Completed by CC/SW Yes Actual Discharge Plan 05/20/2025 NORA Update: Pt did not want to be disturbed. Per chcart review, [facility] was planned for tomorrow, however, cancelled due to pt stating she wants family to be present. VasSurg following. Plan is for the pt to go back to [facility]. Pt will need an ambulance transport.Pharmacy updated in Epic and post acute placement consent form previously completed. SW following * Carlos Manuel Landaverde II, MD - 05/20/2025 11:21 AM EDT PROGRESS NOTE Handoff Completed:Yes/No: Yes Disposition Perspective - Medically ready for discharge: No Anticipated ready for discharge timeframe?: pending AKA timing Ready for discharge when / if?: gets AKA, then subsequent dispo Admitted on 04/30/2025: DFI sp TMA, needs AKA. Initially declined, now agreeable to AKA but does notwant to have until sons are available. Timing TBD Estimated Date of Discharge: 05/24/2025 Patient is not ready for discharge Estimated Date of Discharge: 05/24/2025 Assessment/Plan: Assessment & Plan Diabetic foot infection (HCC) S/P transmetatarsal amputation of foot, left (HCC) Wound dehiscence over previous left TMA site. ESR, CRP normal. WBC wnl. Afebrile. No acute infection. - podiatry consulted - vascular consulted - MRI L foot 05/03 with mild marrow edema of metatarsal distal stump margins without evidence of osteomyelitis - Angiogram performed, minimal blood flow past the knee, recommend AKA but pt declining -Pain control ongonig ; increased oxycodone -D/w vascular surgery as pt now agreeable to AKA, pt states will happen 05/24 (?) - was on schedule for AM but declining to have AKA tomorrow , d/w vascular PAD (peripheral artery disease) History of angiogram 01/2025. - vascular consulted - arterial studies 05/02 with significant PAD - COMPLIANCE PARALEGAL stenosis Patent popliteal and TPT with severe stenosis Patent proximal QUALITY CONTROL ASSOCIATE but occluded distally without reconstitution Patent DAREN with multifocal severe stenosis, occlusion at the level of the ankle and no distal reconstitution Significant small vessel disease in L foot Paroxysmal atrial fibrillation (HCC) Heart rate controlled. 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 - QUALITY CONTROL ASSOCIATE coreg - cardiac monitoring -Rate controlled 05/20/25 Type 2 diabetes mellitus, without long-term current use of insulin (HCC) Last A1c 4.8 in 03/2024. QUALITY CONTROL ASSOCIATE meds include none. - hold off on FSBS, correctional algorithm - rpt A1c 5.3 - stable 05/20/25 Hypertension associated with diabetes (HCC) Well controlled. - QUALITY CONTROL ASSOCIATE coreg - monitor and adjust as needed -BP stable 05/20/25 Chronic heart failure with preserved ejection fraction (HCC) Echo 2023 normal EF. Euvolemic on exam - monitor I/O, daily weights - diuresis: QUALITY CONTROL ASSOCIATE lasix on hold - QUALITY CONTROL ASSOCIATE coreg -Stable 05/20/25 Stage 3a chronic kidney disease (HCC) Cre 1.05 at admit. Baseline approx 0.9-1.2. -Cr 0.91 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 History of CABG - continue lipitor, coreg, ranexa Wound dehiscence Continue to monitor Cont neurontin 400TID Increased oxycodone 10>15mg dose, improved sx Anemia in other chronic diseases classified elsewhere Continue to monitor Hgb 8.7> 7.6, no report of blood loss -Check b12/folate/iron Loose stools -Back off BM meds today Dispo: Pending AKA timing/plans VTE Prophylaxis: Active Hospital Problems Diagnosis *Diabetic foot infection (HCC) Palliative care by specialist Goals of care, counseling/discussion Wound dehiscence S/P transmetatarsal amputation of foot, left (HCC) Stage 3a chronic kidney disease (HCC) Anemia in other chronic diseases classified elsewhere PAD (peripheral artery disease) Chronic heart failure with preserved ejection fraction (HCC) Paroxysmal atrial fibrillation (HCC) 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 Type 2 diabetes mellitus, without long-term current use of insulin (HCC) Hypertension associated with diabetes (HCC) Subjective: C/o loose stools 2/2 bm meds Objective: BP 111/55 (BP Location: Left arm, Patient Position: Lying right side) Pulse 76 Temp 99 ??F (37.2 ??C) (Oral) Resp 16 Ht 5' 2 (1.575 m) Wt 120 lb (54.4 kg) SpO2 92% BMI 21.95 kg/m?? I/O last 3 completed shifts: In: 1107 [P.O.:1107] Out: 450 [Urine:450] Weight: 120 lb (54.4 kg) Constitutional: Alert and oriented to person, place, and time. No distress. Cardiovascular: Normal rate and regular rhythm. Exam reveals no friction rub. No murmur heard. Pulmonary/Chest: Effort normal and breath sounds normal. No respiratory distress. There are no wheezes. Abdominal: Soft. Bowel sounds are normal. No distension. There is no tenderness. There is no rebound and no guarding. Musculoskeletal: No edema. Neurological: Grossly normal. Skin: Skin is warm and dry. No erythema. Labs: Laboratory data and diagnostic testing reviewed 05/20/25. Carlos Manuel Landaverde II, MD 05/20/2025 12:51 PM * Teo De La Torre PA-C - 05/20/2025 9:58 AM EDT Images from the original note were not included. Patient Name:Skyler Bautista : 1940 Admitting Diagnosis: Diabetic foot infection (HCC) INTERVAL HISTORY Patient seen and examined. She is tentatively on the OR schedule tomorrow for left AKA. She is adamant that she does not wants surgery tomorrow as her 2 sons are not available to be here at the hospital. MEDICAL HISTORY Scheduled Medications: ALPRAZolam 0.5 mg Oral Nightly aprepitant 40 mg Oral Once Preprocedure atorvastatin 40 mg Oral Nightly carvediloL 12.5 mg Oral BID docusate sodium 100 mg Oral BID dorzolamide-timoloL 1 Drop Ophthalmic BID gabapentin 400 mg Oral TID GLUCERNA Therapeutic 1 'box' Oral Q AM CRISTINE powder 1 Packet Oral BID latanoprost 1 Drop Ophthalmic Nightly pantoprazole 40 mg Oral Daily ranolazine 1,000 mg Oral Daily senna 8.6 mg Oral Nightly Allergy: Allergies Allergen Reactions Lidocaine Rash Last Recorded Vital Signs: Temp: 99 ??F (37.2 ??C) Pulse: 81 BP: 111/55 Resp: 16 SpO2: 92 % O2 Flow Rate (L/min): 2 lpm Intake/Output Summary (Last 24 hours) at 05/20/2025 0937 Last data filed at 05/20/2025 0206 Gross per 24 hour Intake 870 ml Output 100 ml Net 770 ml LABS AND RADIOLOGY Pertinent Labs: CBC: Recent Labs 05/20/25 0659 WBC 3.1* HGB 7.6* HCT 23.4* MCV 114.7* PLT 86* BMP: Recent Labs 05/20/25 0659 NA 137 K 4.1 CL 106 CO2 19* BUN 21 CREATININE 0.91 CALCIUM 8.5* GLU 110* PHYSICAL EXAMINATION Physical Exam: No acute distress. Resting in bed. L TMA with necrotic suture line, dry, no foul odor or erythema. Rest of PE unchanged. MEDICAL DECISION MAKING Active Hospital Problems Diagnosis *Diabetic foot infection (HCC) Palliative care by specialist Goals of care, counseling/discussion Wound dehiscence S/P transmetatarsal amputation of foot, left (HCC) Stage 3a chronic kidney disease (HCC) Anemia in other chronic diseases classified elsewhere PAD (peripheral artery disease) Chronic heart failure with preserved ejection fraction (HCC) Paroxysmal atrial fibrillation (HCC) 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 Type 2 diabetes mellitus, without long-term current use of insulin (HCC) Hypertension associated with diabetes (HCC) Assessment: PAD with failing left TMA S/p Aortogram, LLE angio, RLE angio 05/10 Hx L frontotemporal hemorrhagic contusion, bilateral SAH and SDH Hx frequent falls Paroxysmal atrial fibrillation Chronic CHF Plan: Left AKA planned for tomorrow will be cancelled as patient is refusing until family can be at the hospital. Signed: Teo De La Torre PA-C 05/20/2025 9:59 AM Cosigned by Lawrence Wolf MD at 05/20/2025 5:12 PM EDT Associated attestation - Lawrence Wolf MD - 05/20/2025 5:12 PM EDT Scheduled for L AKA tomorrow. Patient now refusing. Will cancel. Lawrence Wolf MD * Carlos Manuel Landaverde II, MD - 05/19/2025 3:11 PM EDTAssociated Problem(s): Diabetic foot infection (HCC) Wound dehiscence over previous left TMA site. ESR, CRP normal. WBC wnl. Afebrile. No acute infection. - podiatry consulted - vascular consulted - MRI L foot 7/18 with mild marrow edema of metatarsal distal stump margins without evidence of osteomyelitis - Angiogram performed, minimal blood flow past the knee, recommend AKA but pt declining -Pain control ongonig ; increased oxycodone -D/w vascular surgery as pt now agreeable to AKA, pt states will happen 05/24 * Carlos Manuel Landaverde II, MD - 05/19/2025 3:11 PM EDTAssociated Problem(s): S/P transmetatarsal amputation of foot, left (HCC) Wound dehiscence over previous left TMA site. ESR, CRP normal. WBC wnl. Afebrile. No acute infection. - podiatry consulted - vascular consulted - MRI L foot 7/18 with mild marrow edema of metatarsal distal stump margins without evidence of osteomyelitis - Angiogram performed, minimal blood flow past the knee, recommend AKA but pt declining -Pain control ongonig ; increased oxycodone -D/w vascular surgery as pt now agreeable to AKA, pt states will happen 05/24 * Carlos Manuel Landaverde II, MD - 05/19/2025 3:11 PM EDTAssociated Problem(s): Type 2 diabetes mellitus, without long-term current use of insulin (HCC) Last A1c 4.8 in 03/2024. QUALITY CONTROL ASSOCIATE meds include none. - hold off on FSBS, correctional algorithm - rpt A1c 5.3 - stable 05/19/25 * Carlos Manuel Landaverde II, MD - 05/19/2025 3:11 PM EDTAssociated Problem(s): Stage 3a chronic kidney disease (HCC) Cre 1.05 at admit. Baseline approx 0.9-1.2. -repeat bmp * Zurdo Dennison - 05/19/2025 3:11 PM EDT Images from the original note were not included. 05/19/25 1500 Reason for Visit Reason for Visit Spiritual, emotional or social support;Follow-up Patient Assessment Spiritual Strengths and Coping Resources Meaning, ez, support in yazidism practices;Meaningful relationship or connection with God Care Plan Plan for Follow-Up Hand Stemmer(s) remains available as needed Add to Follow Up List No Zurdo Dennison Hand Stemmer, Pastoral and Spiritual Care For non-urgent requests, please place a Pastoral Care consult in [facility]. For all urgent matters, please send an urgent [facility] Secure Chat to the Pastoral Care group at your location. Between 11pm and 7am, please use On-Call Finder to send an [facility] Secure Chat to the on-call counter tacker. Pastoral Care office phone numbers: EDG/COV/GRT [id number], FLORINA [id number], FTT [id number], DBN [id number] * Carlos Manuel Landaverde II, MD - 05/19/2025 11:25 AM EDTAssociated Problem(s): PAD (peripheral artery disease) History of angiogram 01/2025. - vascular consulted - arterial studies 05/02 with significant PAD - COMPLIANCE PARALEGAL stenosis Patent popliteal and TPT with severe stenosis Patent proximal QUALITY CONTROL ASSOCIATE but occluded distally without reconstitution Patent DAREN with multifocal severe stenosis, occlusion at the level of the ankle and no distal reconstitution Significant small vessel disease in L foot * Carlos Manuel Landaverde II, MD - 05/19/2025 11:25 AM EDTAssociated Problem(s): Paroxysmal atrial fibrillation (HCC) Heart rate controlled. 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 - QUALITY CONTROL ASSOCIATE coreg - cardiac monitoring -Rate controlled 05/19/25 * Carlos Manuel Landaverde II, MD - 05/19/2025 11:25 AM EDTAssociated Problem(s): Hypertension associated with diabetes (HCC) Well controlled. - QUALITY CONTROL ASSOCIATE coreg - monitor and adjust as needed -BP stable 05/19/25 * Carlos Manuel Landaverde II, MD - 05/19/2025 11:25 AM EDTAssociated Problem(s): Acute on chronic heart failure with preserved ejection fraction (HCC) Echo 2023 normal EF. Euvolemic on exam - monitor I/O, daily weights - diuresis: QUALITY CONTROL ASSOCIATE lasix on hold - QUALITY CONTROL ASSOCIATE coreg -Stable 05/19/25 * Carlos Manuel Landaverde II, MD - 05/19/2025 11:25 AM EDTAssociated Problem(s): 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 History of CABG - continue lipitor, coreg, ranexa * Carlos Manuel Landaverde II, MD - 05/19/2025 11:25 AM EDTAssociated Problem(s): Wound dehiscence Continue to monitor Cont neurontin 400TID Increased oxycodone 10>15mg dose, improved sx * Carlos Manuel Landaverde II, MD - 05/19/2025 11:25 AM EDTAssociated Problem(s): Anemia in other chronic diseases classified elsewhere Continue to monitor hemoglobin appears stable at the moment * Carlos Manuel Landaverde II, MD - 05/19/2025 11:25 AM EDTAssociated Problem(s): Goals of care, counseling/discussion Palliative Care on boad * Carlos Manuel Landaverde II, MD - 05/19/2025 11:25 AM EDT PROGRESS NOTE Assessment/Plan: Assessment & Plan Diabetic foot infection (HCC) S/P transmetatarsal amputation of foot, left (HCC) Wound dehiscence over previous left TMA site. ESR, CRP normal. WBC wnl. Afebrile. No acute infection. - podiatry consulted - vascular consulted - MRI L foot 05/03 with mild marrow edema of metatarsal distal stump margins without evidence of osteomyelitis - Angiogram performed, minimal blood flow past the knee, recommend AKA but pt declining -Pain control ongonig ; increased oxycodone -D/w vascular surgery as pt now agreeable to AKA, pt states will happen 05/24 PAD (peripheral artery disease) History of angiogram 01/2025. - vascular consulted - arterial studies 05/02 with significant PAD - COMPLIANCE PARALEGAL stenosis Patent popliteal and TPT with severe stenosis Patent proximal QUALITY CONTROL ASSOCIATE but occluded distally without reconstitution Patent DAREN with multifocal severe stenosis, occlusion at the level of the ankle and no distal reconstitution Significant small vessel disease in L foot Paroxysmal atrial fibrillation (HCC) Heart rate controlled. 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 - QUALITY CONTROL ASSOCIATE coreg - cardiac monitoring -Rate controlled 05/19/25 Type 2 diabetes mellitus, without long-term current use of insulin (HCC) Last A1c 4.8 in 03/2024. QUALITY CONTROL ASSOCIATE meds include none. - hold off on FSBS, correctional algorithm - rpt A1c 5.3 - stable 05/19/25 Hypertension associated with diabetes (HCC) Well controlled. - QUALITY CONTROL ASSOCIATE coreg - monitor and adjust as needed -BP stable 05/19/25 Chronic heart failure with preserved ejection fraction (HCC) Echo 2023 normal EF. Euvolemic on exam - monitor I/O, daily weights - diuresis: QUALITY CONTROL ASSOCIATE lasix on hold - QUALITY CONTROL ASSOCIATE coreg -Stable 05/19/25 Stage 3a chronic kidney disease (HCC) Cre 1.05 at admit. Baseline approx 0.9-1.2. -repeat bmp 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 History of CABG - continue lipitor, coreg, ranexa Wound dehiscence Continue to monitor Cont neurontin 400TID Increased oxycodone 10>15mg dose, improved sx Anemia in other chronic diseases classified elsewhere Continue to monitor hemoglobin appears stable at the moment Goals of care, counseling/discussion Palliative Care on boad Dispo: eventual aka VTE Prophylaxis: Active Hospital Problems Diagnosis *Diabetic foot infection (HCC) Palliative care by specialist Goals of care, counseling/discussion Wound dehiscence S/P transmetatarsal amputation of foot, left (HCC) Stage 3a chronic kidney disease (HCC) Anemia in other chronic diseases classified elsewhere PAD (peripheral artery disease) Chronic heart failure with preserved ejection fraction (HCC) Paroxysmal atrial fibrillation (HCC) 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 Type 2 diabetes mellitus, without long-term current use of insulin (HCC) Hypertension associated with diabetes (HCC) Subjective: Doing well, no c/o constipation or uncontrolled pain Objective: BP 141/81 (BP Location: Right arm, Patient Position: Sitting) Pulse 84 Temp 98.1 ??F (36.7 ??C)(Oral) Resp 18 Ht 5' 2 (1.575 m) Wt 120 lb (54.4 kg) SpO2 98% BMI 21.95 kg/m?? I/O last 3 completed shifts: In: 600 [P.O.:600] Out: 1405 [Urine:1405] Weight: 120 lb (54.4 kg) Constitutional: Alert and oriented to person, place, and time. No distress. Cardiovascular: Normal rate and regular rhythm. Exam reveals no friction rub. No murmur heard. Pulmonary/Chest: Effort normal and breath sounds normal. No respiratory distress. There are no wheezes. Abdominal: Soft. Bowel sounds are normal. No distension. There is no tenderness. There is no rebound and no guarding. Musculoskeletal: No edema. Neurological: Grossly normal. Skin: Skin is warm and dry. No erythema. Labs: Laboratory data and diagnostic testing reviewed 05/19/25. Carlos Manuel Landaverde II, MD 05/19/2025 11:25 AM * Shelli Schultz - 05/18/2025 1:29 PM EDT Images from the original note were not included. 05/18/25 1300 Reason for Visit Date of visit 05/18/25 Visited With Patient Visited By Hand Stemmer Referral Source Hand Stemmer Reason for Visit Spiritual, emotional or social support Patient Assessment Patient Appears Tearful;Positive (Skyler has a strong treasure in God, prays often, appreciates prayer and PC support) 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 Pentecostal Patient Restorationist Upon Assessment Pentecostal Spiritual Strengths and Coping Resources Meaningful relationship or connection with God Spiritual and Emotional Concerns Fear (fear concerning upcoming procedure; despite fears, Skyler shared she trusts God ultimately, no matter what happens) Patient Spiritual Wellbeing Appears to be coping adequately Interventions with Patient Relationship Building Interventions Cultivated a relationship of care and support;Listened empathetically Samaritan Interventions Prayer with patient or family Exploration Interventions Helped identify and clarify feelings or concerns Outcomes Expressed Outcomes Appreciative of prayer/ritual;Appreciative of visit;Able to discuss emotions Care Plan Plan for Follow-Up Hand Stemmer(s) will continue to follow throughout admission Add to Follow Up List Yes Khalida Schultz Hand Stemmer, Pastoral and Spiritual Care For non-urgent requests, please place a Pastoral Care consult in [facility]. For all urgent matters, please send an urgent [facility] Secure Chat to the Pastoral Care group at your location. Between 11pm and 7am, please use On-Call Finder to send an [facility] Secure Chat to the on-call counter tacker. Pastoral Care office phone numbers: EDG/COV/GRT [id number], FLORINA [phone], FTT [phone], DBN [phone] * Carlos Manuel Landaverde II, MD - 05/18/2025 12:07 PM EDTAssociated Problem(s): Stage 3a chronic kidney disease (HCC) Cre 1.05 at admit. Baseline approx 0.9-1.2. -Cr stable 0.83, repeat sp OR * Carlos Manuel Landaverde II, MD - 05/18/2025 8:38 AM EDTAssociated Problem(s): Diabetic foot infection (HCC) Wound dehiscence over previous left TMA site. ESR, CRP normal. WBC wnl. Afebrile. No acute infection. - podiatry consulted - vascular consulted - MRI L foot 7/18 with mild marrow edema of metatarsal distal stump margins without evidence of osteomyelitis - Angiogram performed, minimal blood flow past the knee, recommend AKA but pt declining -Pain control ongonig ; increased oxycodone -D/w vascular surgery as pt now agreeable to AKA * Carlos Manuel Landaverde II, MD - 05/18/2025 8:38 AM EDTAssociated Problem(s): S/P transmetatarsal amputation of foot, left (HCC) Wound dehiscence over previous left TMA site. ESR, CRP normal. WBC wnl. Afebrile. No acute infection. - podiatry consulted - vascular consulted - MRI L foot 7/18 with mild marrow edema of metatarsal distal stump margins without evidence of osteomyelitis - Angiogram performed, minimal blood flow past the knee, recommend AKA but pt declining -Pain control ongonig ; increased oxycodone -D/w vascular surgery as pt now agreeable to AKA * Carlos Manuel Landaverde II, MD - 05/18/2025 8:38 AM EDTAssociated Problem(s): PAD (peripheral artery disease) History of angiogram 01/2025. - vascular consulted - arterial studies 05/02 with significant PAD - COMPLIANCE PARALEGAL stenosis Patent popliteal and TPT with severe stenosis Patent proximal QUALITY CONTROL ASSOCIATE but occluded distally without reconstitution Patent DAREN with multifocal severe stenosis, occlusion at the level of the ankle and no distal reconstitution Significant small vessel disease in L foot * Carlos Manuel Landaverde II, MD - 05/18/2025 8:38 AM EDTAssociated Problem(s): Paroxysmal atrial fibrillation (HCC) Heart rate controlled. 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 - QUALITY CONTROL ASSOCIATE coreg - cardiac monitoring -Rate controlled 05/18/25 * Carlos Manuel Landaverde II, MD - 05/18/2025 8:38 AM EDTAssociated Problem(s): Type 2 diabetes mellitus, without long-term current use of insulin (HCC) Last A1c 4.8 in 03/2024. QUALITY CONTROL ASSOCIATE meds include none. - hold off on FSBS, correctional algorithm - rpt A1c 5.3 * Carlos Manuel Landaverde II, MD - 05/18/2025 8:38 AM EDTAssociated Problem(s): Hypertension associated with diabetes (HCC) Well controlled. - QUALITY CONTROL ASSOCIATE coreg - monitor and adjust as needed -BP stable 05/18/25 * Carlos Manuel Landaverde II, MD - 05/18/2025 8:38 AM EDTAssociated Problem(s): Acute on chronic heart failure with preserved ejection fraction (HCC) Echo 2023 normal EF. Euvolemic on exam - monitor I/O, daily weights - diuresis: QUALITY CONTROL ASSOCIATE lasix on hold - QUALITY CONTROL ASSOCIATE coreg -Stable 05/18/25 * Carlos Manuel Landaverde II, MD - 05/18/2025 8:38 AM EDTAssociated Problem(s): 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 History of CABG - continue lipitor, coreg, ranexa * Carlos Manuel Landaverde II, MD - 05/18/2025 8:38 AM EDTAssociated Problem(s): Wound dehiscence Continue to monitor Cont neurontin 400TID Increased oxycodone 10>15mg dose, improved sx * Carlos Manuel Landaverde II, MD - 05/18/2025 8:38 AM EDTAssociated Problem(s): Anemia in other chronic diseases classified elsewhere Continue to monitor hemoglobin appears stable at the moment * Carlos Mnauel Landaverde II, MD - 05/18/2025 8:38 AM EDTAssociated Problem(s): Goals of care, counseling/discussion Palliative Care on boad * Carlos Manuel Landaverde II, MD - 05/18/2025 8:38 AM EDT PROGRESS NOTE Assessment/Plan: Assessment & Plan Diabetic foot infection (HCC) S/P transmetatarsal amputation of foot, left (HCC) Wound dehiscence over previous left TMA site. ESR, CRP normal. WBC wnl. Afebrile. No acute infection. - podiatry consulted - vascular consulted - MRI L foot 05/03 with mild marrow edema of metatarsal distal stump margins without evidence of osteomyelitis - Angiogram performed, minimal blood flow past the knee, recommend AKA but pt declining -Pain control ongonig ; increased oxycodone -D/w vascular surgery as pt now agreeable to AKA PAD (peripheral artery disease) History of angiogram 01/2025. - vascular consulted - arterial studies 05/02 with significant PAD - COMPLIANCE PARALEGAL stenosis Patent popliteal and TPT with severe stenosis Patent proximal QUALITY CONTROL ASSOCIATE but occluded distally without reconstitution Patent DAREN with multifocal severe stenosis, occlusion at the level of the ankle and no distal reconstitution Significant small vessel disease in L foot Paroxysmal atrial fibrillation (HCC) Heart rate controlled. 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 - QUALITY CONTROL ASSOCIATE coreg - cardiac monitoring -Rate controlled 05/18/25 Type 2 diabetes mellitus, without long-term current use of insulin ([facility]) Last A1c 4.8 in 03/2024. QUALITY CONTROL ASSOCIATE meds include none. - hold off on FSBS, correctional algorithm - rpt A1c 5.3 Hypertension associated with diabetes ([facility]) Well controlled. - QUALITY CONTROL ASSOCIATE coreg - monitor and adjust as needed -BP stable 05/18/25 Chronic heart failure with preserved ejection fraction ([facility]) Echo 2023 normal EF. Euvolemic on exam - monitor I/O, daily weights - diuresis: QUALITY CONTROL ASSOCIATE lasix on hold - QUALITY CONTROL ASSOCIATE coreg -Stable 05/18/25 Stage 3a chronic kidney disease ([facility]) Cre 1.05 at admit. Baseline approx 0.9-1.2. -Cr stable 0.83, repeat sp OR 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 History of CABG - continue lipitor, coreg, ranexa Wound dehiscence Continue to monitor Cont neurontin 400TID Increased oxycodone 10>15mg dose, improved sx Anemia in other chronic diseases classified elsewhere Continue to monitor hemoglobin appears stable at the moment Goals of care, counseling/discussion Palliative Care on boad Dispo: Remain in Back off of stool softener VTE Prophylaxis: Active Hospital Problems Diagnosis *Diabetic foot infection (HCC) Palliative care by specialist Goals of care, counseling/discussion Wound dehiscence S/P transmetatarsal amputation of foot, left (HCC) Stage 3a chronic kidney disease (HCC) Anemia in other chronic diseases classified elsewhere PAD (peripheral artery disease) Chronic heart failure with preserved ejection fraction (HCC) Paroxysmal atrial fibrillation (HCC) 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 Type 2 diabetes mellitus, without long-term current use of insulin ([facility]) Hypertension associated with diabetes (HCC) Subjective: Required enema last night, lots of liquid stool today Pain is controlled Objective: BP 133/64 (BP Location: Right arm, Patient Position: Semi Fowlers) Pulse 91 Temp 98.4 ??F (36.9??C) (Oral) Resp 17 Ht 5' 2 (1.575 m) Wt 120 lb (54.4 kg) SpO2 98% BMI 21.95 kg/m?? I/O last 3 completed shifts: In: 487 [P.O.:487] Out: 820 [Urine:820] Weight: 120 lb (54.4 kg) Constitutional: Alert and oriented to person, place, and time. No distress. Cardiovascular: Normal rate and regular rhythm. Exam reveals no friction rub. No murmur heard. Pulmonary/Chest: Effort normal and breath sounds normal. No respiratory distress. There are no wheezes. Abdominal: Soft. Bowel sounds are normal. No distension. There is no tenderness. There is no rebound and no guarding. Musculoskeletal: No edema. Neurological: Grossly normal. Skin: Skin is warm and dry. No erythema. Labs: Laboratory data and diagnostic testing reviewed 05/18/25. Carlos Manuel Landaverde II, MD 05/18/2025 8:38 AM * Samara Bernabe RN - 05/18/2025 7:15 AM EDT Patient has been constipated for days, gave schedule meds for BM,pt tried to have a bm and was impacted,message was sent via secure chat to oncall, and enema was ordered.Enema was administered as ordered, bladder scan was done due to pt complains of full bladder,Order was put in via secure chat to straight cath,pt was straight cath. Pt had some relief and made comfortable in bed. * Cely Gottlieb RD,TIFFANY - 05/17/2025 2:51 PM EDT [facility] Nutrition Malnutrition Reassessment Evidence Supported Diagnosis: No malnutrition identified Nutrition Prescription: Kcals: [id number] kcal (25-30 kcal/kg, based on 54.4 kg) Protein (g): 65-82 gm Protein needs based on: 1.2-1.5 gm/kg Fluid (ml): 1 ml/kcal or per MD Other (comment): Based on 54.4 kg Plan/Interventions: Meals and Snacks: Regular Medical Food Supplements: Cristine, Glucerna Therapeutic Medical Food/Supplement Freq: Cristine BID, Glucerna decrease to daily Nutrition-Related Medication Management: Colace, protonix, senokot Nutrition Education: Supplements, Increased nutrients for wound healing Collaboration And Referral Of Nutrition Care: Collaboration with other providers Nutrition Discharge Instructions: Continue to eat foods high in protein. Continue to drink protein shakes 1-2x per day for additional protein. Skyler Bautista is a 84 y.o. female patient. Admit Diagnosis: Wound dehiscence [T81.30XA] Diabetic foot infection (HCC) [E11.628, L08.9] Subjective: Subjective Comment: Brief f/u on pt's nutritional status. Pt visited. Sleeping soundly, snoring. Chart reviewed. Pt refused 1 meal today, but po intakes to appear to have continued to improve. Has eaten 100% or 75% of all meals documented since last assessment. Continues with good intakes of supplements. Noted Cristine bedside with a few sips taken and Glucerna opened with not much consumed. Noted pt now agreeable to L AKA. Will continue to monitor. Anthropometric Measurements: Height: 5' 2 (157.5 cm) Weight: 120 lb (54.4 kg) BMI (Calculated): 21.95 BMI Assessment: 18.5-24.9 Normal IBW +/- 10%: 110 lb (49.9 kg) % IBW: 109 Food/Nutrition Related History: Dietary Orders Ordered Regular Diet DIET EFFECTIVE NOW 05/10/25 1851 GLUCERNA Therapeutic oral supplement 1 'box' Oral Q AM 1 'box' at 05/17/25 0900 CRISTINE powder oral supplement 1 Packet Oral BID 1 Packet at 05/17/25 0800 * Coleman Moss COTA - 05/17/2025 2:41 PM EDT 05/17/25 1431 OT Subjective Note Type Chart Review;Treatment/Progress Patient Room/Unit 3318 OT Subjective Comments #1 Upon arrival, pt found resting in bed and agreeable to participate in OT with encouragement. Others Present/Assisting JOSE Coello. Discharge Information This progress note will serve as the discharge summary if no further therapy is provided prior to the patient being discharged from the hospital. Admitting Diagnosis Patient is an 84 year old female admitted 04/30/25 with diabetic foot infection, PAD and wound dehiscence. Deciding on no intervention vs BKA vs AKA Past Med Hx Afib, PAD, HFpEF, L TMA 03/2025, R femur fx 03/2024, CABG 05/2024, emphysema, DANTE, Afib Diagnostic Testing MRI L foot: 1. Status post transmetatarsal amputation. There is mild marrow edema the metatarsal distal stump margins without evidence of osteomyelitis. 2. Dorsal soft tissue woundof the distal stump without an abscess. Clinical Course 05/17 Now agreeable to AKA Precautions Therapy Precautions Yes Weight Bearing Status Left lower extremity;Weight bearing as tolerated Precaution Info Given Weight bearing;To use call light to request assistance with all mobility Cognition Orientation Intact Arousal Impaired Arousal Impairment Lethargic Safety Awareness Impaired Safety Awareness Impairment Minimal Impairments: Needs up to 25% input/direction from therapist in order to identify safety issues and maintain safety. Affect/Ability to cope Impaired Affect/Ability to cope impairment Flat Command Following Impaired Command following impairment Minimal Impairments: Needs up to 25% input/direction from therapist inorder to follow single step commands. Memory Impaired Memory impairment Decreased recall of recent events;Decreased recall of precautions Communication Intact Vision reports poor vision Pain Screening PT/OT Patient Currently in Pain Yes Pain Location Foot Pain Orientation Left Pain Intervention(s) Repositioned;Ambulation/Increased activity Observation Presentation Patient resting in bed Posture Semi-fowlers Observation Bed alarm;Telemetry Bed Mobility Rolling Stand by assist;With cues Supine to Sit Minimal assistance;With cues;Head of bed slightly elevated;With bed rails Additional Comments Pt sits up in long sitting first, then pt scoots EOB with cues and sits EOB with SBA Transfers Sit to Stand Minimal assistance;With verbal cues Stand to Sit Minimal assistance;With verbal cues Bed to/from chair Minimal assistance;With verbal cues;With 2 people Additional Comments pt performs sit pivot transfer from bed to BSC without AD, verbal and hand overhand cues given for safe hand placement Functional Transfers Toilet Transfers Minimal assistance;With 2 people Additional Comments BSC, no AD per pt refusing Gait Gait Minimal assistance;With verbal cues Assistive Device 2 Wheel walker Weight Bearing Status Weight bearing as tolerated Additional Comments Pt pivoted from bed to BSC. Afterwards, pt takes a few steps to chair. Pt then completes fxl mobility fwd with chair follow. Fatigues quickly. Balance Sitting Balance 2+/5 supports self with 1 UE Standing Balance 1+/5>50% (minimal assistance) PT/OT Mobility Documentation PT/OT Mobility Score 5 ADL Interventions Where Assessed Sitting on toilet/bedside commode Feeding Assistance Set up;Cut up food/open containers (needs containers/packets opened up d/t decreased vision and FMC) Grooming Assistance Set up;With verbal cues;Minimal;Hair care;Contact guard;Washing hands;Washing face UE Bathing Assistance Set up;With verbal cues;Stand by;Chest;LUE;RUE LE Bathing Assistance Set up;With verbal cues;Contact guard;Ana area;Buttock (standing) UE Dressing Assistance Set up;With verbal cues;Minimal;Thread RUE;Thread LUE;Pull around back;Fasteners LE Dressing Assistance Total;Don/doff R sock (would not attempt to don sock this date) Additional Comments needed assist to apply deodorant d/t decreased SF Interventions Balance Training Dynamic standing/sitting balance, fxl mobility, fxl reaching, ADL transfers Fine Motor Training Min A for use of tools for ADL's/self-feeding. Equipment Training 2ww Transfer Training bed<BSC<chair Functional Status Score (FSS-ICU) Is the patient currently in ICU? No AM PAC: How much help from another person does the patient currently need... putting on and taking off regular lower body clothing? 3 bathing (including washing, rinsing, drying)? 2 toileting, which includes using toilet, bedpan or urinal? 3 putting on and taking off regular upper body clothing? 3 taking care of personal grooming such as brushing teeth? 3 eating meals? 3 AM PAC DAILY ACTIVITY SCORING Daily Activity Raw Score 17 AM PAC Daily Activity CMS 0-100% Functional Percentage 50.11 AM PAC Daily Activity CMS G Code Modifier CK Education Education To use call light to request assistance with all mobility;Patient/Family Education;Role of Therapy;Safety with mobility;Cues for proper technique;Discharge planning;Up with assistance only;Safe and proper posture/positioning;Safe and proper technique with transfers;Educated on benefits ofmobility, upright positioning, and getting out of bed;Energy conservation Patient Safety Patient left in chair with needs in reach;Chair/personal alarm activated Assessment Assessment Decreased ADL status;Decreased Safe judgement during ADL;Decreased endurance;Decreased high-level ADLs;Decreased self-care transfers;Decreased fine motor control Prognosis Good;With continued OT s/p acute discharge Rationale for Skilled Therapy Fall Risk;Balance Deficits;Not safe with independent transfers;Not safe ambulating independently;Needs verbal/tactile cues for ADL's;Decreased endurance and tolerance toactivity;Able to make measurable improvements;Requires multi-disciplinary team;Requires physical ass istance with ADLs Additional Comments Pt demo progress with TF this date, however is limited by pain. Pt would benefit from cont OT services to maximize safety and fxl independence. ADL Goals Pt Will Perform Upper Body Grooming Standing at sink;Contact guard;Not met Pt Will Perform Upper Body Bathing With setup;Not met Pt Will Perform Lower Body Bathing Minimal assistance;Partly met Functional Transfer Goals Pt Will Perform All Functional Transfers Contact guardance;Not met Plan Treatment Interventions ADL retraining;Functional transfer training;UE strengthening/ROM;Endurance training;Patient/Family training;Fine motor coordination activities;Compensatory technique education;Co-treatment with Physical Therapy OT Frequency 2-5x/wk Recommendation OT Recommendation Moderate frequency, moderate intensity five days a week therapy recommended. Time In / Time Out [id number] IP OT Individual Treatment Minutes 33 * Aure Radha Delia, PT - 05/17/2025 2:24 PM EDT 05/17/25 1412 PT Subjective Note Type Chart Review;Reassessment/Re-Evaluation Patient Room/Unit 4420 PT Subjective Comments #1 pt agreeable with encouragement Others Present/Assisting FLORESITA Cee Discharge Information This progress note will serve as the discharge summary if no further therapy is provided prior to the patient being discharged from the hospital. Admitting Diagnosis Patient is an 84 year old female admitted 04/30/25 with diabetic foot infection, PAD and wound dehiscence. Deciding on no intervention vs BKA vs AKA Past Med Hx Afib, PAD, HFpEF, L TMA 03/2025, R femur fx 03/2024, CABG 05/2024, emphysema, DANTE, Afib Clinical Course 05/12: Awaiting decision regarding AKA versus BKA versus no intervention. Recommended AKA based on vascular surgery guidelines and angiogram Pain Screening PT/OT Patient Currently in Pain Yes Pain Rating Patient unable to rate pain Pain Location Foot Pain Orientation Left Pain Intervention(s) Repositioned;Ambulation/Increased activity Cognition Arousal Impaired Arousal Impairment Lethargic Safety Awareness Impaired Safety Awareness Impairment Minimal Impairments: Needs up to 25% input/direction from therapist in order to identify safety issues and maintain safety. Affect/Ability to cope Impaired Affect/Ability to cope impairment Anxious;Distracted Command Following Impaired Command following impairment Minimal Impairments: Needs up to 25% input/direction from therapist inorder to follow multi-step commands. Precautions Therapy Precautions Yes Weight Bearing Status Left lower extremity;Weight bearing as tolerated Precaution Info Given Yes;Weight bearing;To use call light to request assistance with all mobility Observation Presentation Patient resting in bed Observation Bed alarm;Telemetry Bed Mobility Rolling Stand by assist;With cues Supine to Sit Minimal assistance;With cues;Head of bed slightly elevated;With bed rails Additional Comments pt scoot EOB with cues and sits EOB with SBA Transfers Sit to Stand Minimal assistance;With verbal cues Stand to Sit Minimal assistance;With verbal cues Bed to/from chair Minimal assistance;With verbal cues;With 2 people Additional Comments pt performs sit pivot transfer from bed to BSC without AD, verbal and hand overhand cues given for safe hand placement Gait Gait Minimal assistance;With verbal cues Gait Distance (Feet) 2 Feet (+5) Assistive Device 2 Wheel walker Pattern Slow margarito;Antalgic;Decreased step length L;Decreased step length R;Decreased stance timeL;Step to Weight Bearing Status Weight bearing as tolerated Additional Comments Pt ambulate from the BSC to chair with 2ww and Silvestre, then walks 5' with chair follow. Cues given for upright posture, safe use of AD Functional Status Score (FSS-ICU) Is the patient currently in ICU? No PT/OT Mobility Documentation PT/OT Mobility Score 5 AM PAC: How much help from another person does the patient currently need... turning from your back to your side while in a flat bed without using bedrails? 3 moving from lying on your back to sitting on the side of a flat bed without using bedrails? 3 moving to and from a bed to a chair? 3 standing up from a chair using your arms (e.g. wheelchair, or bedside chair)? 3 need to walk in hospital room? 2 climbing 3-5 steps with a railing? 1 AM PAC: BASIC MOBILITY SCORING AM PAC Moblity Raw Score 15 AM PAC Mobility CMS 0-100% Functional Percentage 50.4 AM PAC Mobility CMS G Code Modifier CK Balance Sitting Balance 2+/5 supports self with 1 UE Standing Balance 1+/5>50% (minimal assistance) Education Education To use call light to request assistance with all mobility;Patient/Family Education;Role of Therapy;Safety with mobility;Discharge planning;Cues for proper technique;Up with assistance only;Safe and proper technique with transfers;Safe and proper technique with gait pattern;Safe and properposture/positioning Patient Safety Patient Safety Patient left in chair with needs in reach;Nursing notified of status;Chair/personal alarm activated Assessment Assessment Decreased gait;Decreased functional mobility;Decreased balance;Decreased RightLower Extremity strength;Decreased Left Lower Extremity strength;Decreased activity tolerance ;Decreased safety judgement ;Decreased cognition Prognosis Fair;With continued PT s/p acute discharge Progress Slow progress toward goals Rationale for Skilled Therapy Fall Risk;Balance Deficits;Not safe with independent transfers;Not safe ambulating independently;Able to make measurable improvements;Decreased endurance and tolerance to activity Goals Will Perform Supine To Sit Supervision;Not met Will Perform Sit to Supine With minimal assist;Not assessed Will Perform Sit to Stand With minimal assist;Met;New goal;With stand by assist Will Transfer Bed/Chair With minimal assist;Met;New goal;With contact guard assistance;Not met Will Ambulate With 2 wheel walker;1-10 feet;With moderate assist;Partly met Time for Goal Achievement/Duration of Treatment 14 days, 05/31/2025 Plan Treatment/Interventions Continue with current plan of care PT Frequency 3-5x/week Recommendation PT Recommendation Moderate frequency, moderate intensity five days a week therapy recommended. Time In / Time Out [id number] IP PT Treatment Minutes 39 The total time spent caring for this patient included but was not limited to medical record review;hands-on treatment;communication and education with patient and/or family/caregiver;assessment of the patient's progress since the last session;clinical judgement necessary for treatment planning for next session;communication with nursing and/or care coordination/social work regarding patient status and discharge planning * Carlos Manuel Landaverde II, MD - 05/17/2025 1:37 PM EDTAssociated Problem(s): Stage 3a chronic kidney disease (HCC) Cre 1.05 at admit. Baseline approx 0.9-1.2. -Cr stable 0.8 , repeat sp OR * Carlos Manuel Landaverde II, MD - 05/17/2025 1:37 PM EDTAssociated Problem(s): 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 History of CABG - continue lipitor, coreg, ranexa * Carlos Manuel Landaverde II, MD - 05/17/2025 1:37 PM EDTAssociated Problem(s): Wound dehiscence Continue to monitor Cont neurontin 400TID Increased oxycodone 10>15mg dose, improved sx * Rosario Izaguirre MSW - 05/17/2025 11:05 AM EDT 05/17/25 1101 Ongoing Discharge Planning Evaluation Completed by CC/NORA Yes Repisodic List provided N/A - Resumption care. Patient active with post acute partner prior to admission Actual Discharge Plan 05/17/2025 NORA Update: Pt transferred from , was previously on 3C. Per chart review, pt and care team, pt agreeable to L AKA. VasSurg following, surgery not scheduled at this time. NORA called and followed up with pts sister. NORA called and updated Roxanna with [facility]. They will still continue to follow. Post acute placement consent form previously completed. Pharmacy updated in [employer]. Pt will need ambulance transport at discharge. SW following Final Note Post Acute Form Completed Yes * Carlos Manuel Landaverde II, MD - 05/17/2025 9:16 AM EDTAssociated Problem(s): Diabetic foot infection (HCC) Wound dehiscence over previous left TMA site. ESR, CRP normal. WBC wnl. Afebrile. No acute infection. - podiatry consulted - vascular consulted - MRI L foot 05/03 with mild marrow edema of metatarsal distal stump margins without evidence of osteomyelitis - Angiogram performed, minimal blood flow past the knee, recommend AKA but pt declining -Pain control ongonig ; increased oxycodone -D/w vascular surgery as pt now agreeable to AKA * Carlos Manuel Landaverde II, MD - 05/17/2025 9:16 AM EDTAssociated Problem(s): S/P transmetatarsal amputation of foot, left (HCC) Wound dehiscence over previous left TMA site. ESR, CRP normal. WBC wnl. Afebrile. No acute infection. - podiatry consulted - vascular consulted - MRI L foot 05/03 with mild marrow edema of metatarsal distal stump margins without evidence of osteomyelitis - Angiogram performed, minimal blood flow past the knee, recommend AKA but pt declining -Pain control ongonig ; increased oxycodone -D/w vascular surgery as pt now agreeable to AKA * Carlos Manuel Landaverde II, MD - 05/17/2025 9:16 AM EDTAssociated Problem(s): PAD (peripheral artery disease) History of angiogram 01/2025. - vascular consulted - arterial studies 05/02 with significant PAD - COMPLIANCE PARALEGAL stenosis Patent popliteal and TPT with severe stenosis Patent proximal QUALITY CONTROL ASSOCIATE but occluded distally without reconstitution Patent DAREN with multifocal severe stenosis, occlusion at the level of the ankle and no distal reconstitution Significant small vessel disease in L foot * Carlos Manuel Landaverde II, MD - 05/17/2025 9:16 AM EDTAssociated Problem(s): Paroxysmal atrial fibrillation (HCC) Heart rate controlled. 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 - QUALITY CONTROL ASSOCIATE coreg - cardiac monitoring -Rate controlled 05/17/25 * Carlos Manuel Landaverde II, MD - 05/17/2025 9:16 AM EDTAssociated Problem(s): Type 2 diabetes mellitus, without long-term current use of insulin (HCC) Last A1c 4.8 in 03/2024. QUALITY CONTROL ASSOCIATE meds include none. - hold off on FSBS, correctional algorithm - rpt A1c 5.3 * Carlos Manuel Landaverde II, MD - 05/17/2025 9:16 AM EDTAssociated Problem(s): Hypertension associated with diabetes (HCC) Well controlled. - QUALITY CONTROL ASSOCIATE coreg - monitor and adjust as needed -BP stable 05/17/25 * Carlos Manuel Landaverde II, MD - 05/17/2025 9:16 AM EDTAssociated Problem(s): Acute on chronic heart failure with preserved ejection fraction (HCC) Echo 2023 normal EF. Euvolemic on exam - monitor I/O, daily weights - diuresis: QUALITY CONTROL ASSOCIATE lasix on hold - QUALITY CONTROL ASSOCIATE coreg -Stable 05/17/25 * Carlos Manuel Landaverde II, MD - 05/17/2025 9:16 AM EDTAssociated Problem(s): Anemia in other chronic diseases classified elsewhere Continue to monitor hemoglobin appears stable at the moment * Carlos Manuel Landaverde II, MD - 05/17/2025 9:16 AM EDTAssociated Problem(s): Goals of care, counseling/discussion Palliative Care on boad * Carlos Manuel Landaverde II, MD - 05/17/2025 9:16 AM EDT PROGRESS NOTE Assessment/Plan: Assessment & Plan Diabetic foot infection (HCC) S/P transmetatarsal amputation of foot, left (HCC) Wound dehiscence over previous left TMA site. ESR, CRP normal. WBC wnl. Afebrile. No acute infection. - podiatry consulted - vascular consulted - MRI L foot 05/03 with mild marrow edema of metatarsal distal stump margins without evidence of osteomyelitis - Angiogram performed, minimal blood flow past the knee, recommend AKA but pt declining -Pain control ongonig ; increased oxycodone -D/w vascular surgery as pt now agreeable to AKA PAD (peripheral artery disease) History of angiogram 01/2025. - vascular consulted - arterial studies 05/02 with significant PAD - COMPLIANCE PARALEGAL stenosis Patent popliteal and TPT with severe stenosis Patent proximal QUALITY CONTROL ASSOCIATE but occluded distally without reconstitution Patent DAREN with multifocal severe stenosis, occlusion at the level of the ankle and no distal reconstitution Significant small vessel disease in L foot Paroxysmal atrial fibrillation (HCC) Heart rate controlled. 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 - QUALITY CONTROL ASSOCIATE coreg - cardiac monitoring -Rate controlled 05/17/25 Type 2 diabetes mellitus, without long-term current use of insulin ([facility]) Last A1c 4.8 in 03/2024. QUALITY CONTROL ASSOCIATE meds include none. - hold off on FSBS, correctional algorithm - rpt A1c 5.3 Hypertension associated with diabetes ([facility]) Well controlled. - QUALITY CONTROL ASSOCIATE coreg - monitor and adjust as needed -BP stable 05/17/25 Chronic heart failure with preserved ejection fraction ([facility]) Echo 2023 normal EF. Euvolemic on exam - monitor I/O, daily weights - diuresis: QUALITY CONTROL ASSOCIATE lasix on hold - QUALITY CONTROL ASSOCIATE coreg -Stable 05/17/25 Stage 3a chronic kidney disease ([facility]) Cre 1.05 at admit. Baseline approx 0.9-1.2. -Cr stable 0.8 , repeat sp OR 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 History of CABG - continue lipitor, coreg, ranexa Wound dehiscence Continue to monitor Cont neurontin 400TID Increased oxycodone 10>15mg dose, improved sx Anemia in other chronic diseases classified elsewhere Continue to monitor hemoglobin appears stable at the moment Goals of care, counseling/discussion Palliative Care on boad Dispo: Remain nipt Eventual AKA VTE Prophylaxis: Active Hospital Problems Diagnosis *Diabetic foot infection (HCC) Palliative care by specialist Goals of care, counseling/discussion Wound dehiscence S/P transmetatarsal amputation of foot, left (HCC) Stage 3a chronic kidney disease (HCC) Anemia in other chronic diseases classified elsewhere PAD (peripheral artery disease) Chronic heart failure with preserved ejection fraction (HCC) Paroxysmal atrial fibrillation (HCC) 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 Type 2 diabetes mellitus, without long-term current use of insulin ([facility]) Hypertension associated with diabetes ([facility]) Subjective: Resting, NAD Objective: BP 125/77 Pulse 85 Temp 98.2 ??F (36.8 ??C) (Oral) Resp 14 Ht 5' 2 (1.575 m) Wt 120 lb (54.4 kg) SpO2 95% BMI 21.95 kg/m?? I/O last 3 completed shifts: In: 600 [P.O.:600] Out: - Weight: 120 lb (54.4 kg) Constitutional: NAD Cardiovascular: Normal rate and regular rhythm. Exam reveals no friction rub. No murmur heard. Pulmonary/Chest: Effort normal and breath sounds normal. No respiratory distress. There are no wheezes. Abdominal: Soft. Bowel sounds are normal. No distension. There is no tenderness. There is no rebound and no guarding. Musculoskeletal: No edema. Neurological: Grossly normal. Skin: lle gangrene noted Labs: Laboratory data and diagnostic testing reviewed 05/17/25. Carlos Manuel Landaverde II, MD 05/17/2025 9:16 AM * Gaye Fallon RN - 05/17/2025 7:54 AM EDT Pt resting. Handoff report rec'd. All needs met per staff. Will cont to monitor. * Samara Bernabe RN - 05/17/2025 1:22 AM EDT Patient arrived on unit and 4 Eyes Skin Assessment within 4 hours completed with Charge nurse RN JUANITA Srinivasan Score: (!) 18 Devices Removed/ Reapplied for Skin Assessment Yes Gown Wound Present of Arrival: Yes No - Yes Explain: Yes, Wound LDAs Wound Duration Incision/Wound Amputation Foot Left 17 days Incision/Wound Skin tear Hand Posterior;Right 17 days Incision/Wound MASD Coccyx Mid gluteal split 10 days Initiate prevention protocol and Continue current interventions Dietary Orders Ordered Regular Diet DIET EFFECTIVE NOW 05/10/25 2221 Comments: Pt transfer to unit A/O VSS and skin assessment done with charge nurse within 4hours.Pt oriented to staff, room. use of call light, with bedside table within reach.Bed on low, brakes locked, bed alarm on, bedside commode within reach.Medications given as ordered, pt made comfortable in bed.Care is ongoing. * Carlos Manuel Landaverde II, MD - 05/16/2025 2:50 PM EDTAssociated Problem(s): Diabetic foot infection (HCC) Wound dehiscence over previous left TMA site. ESR, CRP normal. WBC wnl. Afebrile. No acute infection. - podiatry consulted - vascular consulted - MRI L foot 05/03 with mild marrow edema of metatarsal distal stump margins without evidence of osteomyelitis - Angiogram performed, minimal blood flow past the knee, recommend AKA but pt declining -Pain control ongonig ; increased oxycodone -D/w vascular surgery as pt now agreeable to AKA * Carlos Manuel Landaverde II, MD - 05/16/2025 2:50 PM EDTAssociated Problem(s): S/P transmetatarsal amputation of foot, left (HCC) Wound dehiscence over previous left TMA site. ESR, CRP normal. WBC wnl. Afebrile. No acute infection. - podiatry consulted - vascular consulted - MRI L foot 05/03 with mild marrow edema of metatarsal distal stump margins without evidence of osteomyelitis - Angiogram performed, minimal blood flow past the knee, recommend AKA but pt declining -Pain control ongonig ; increased oxycodone -D/w vascular surgery as pt now agreeable to AKA * Carlos Manuel Landaverde II, MD - 05/16/2025 2:50 PM EDTAssociated Problem(s): PAD (peripheral artery disease) History of angiogram 01/2025. - vascular consulted - arterial studies 05/02 with significant PAD - COMPLIANCE PARALEGAL stenosis Patent popliteal and TPT with severe stenosis Patent proximal QUALITY CONTROL ASSOCIATE but occluded distally without reconstitution Patent DAREN with multifocal severe stenosis, occlusion at the level of the ankle and no distal reconstitution Significant small vessel disease in L foot * Carlos Manuel Landaverde II, MD - 05/16/2025 2:50 PM EDTAssociated Problem(s): Paroxysmal atrial fibrillation (HCC) Heart rate controlled. 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 - QUALITY CONTROL ASSOCIATE coreg - cardiac monitoring -Rate controlled 05/16/25 * Carlos Manuel Landaverde II, MD - 05/16/2025 2:50 PM EDTAssociated Problem(s): Type 2 diabetes mellitus, without long-term current use of insulin (HCC) Last A1c 4.8 in 03/2024. QUALITY CONTROL ASSOCIATE meds include none. - hold off on FSBS, correctional algorithm - rpt A1c 5.3 * Carlos Manuel Landaverde II, MD - 05/16/2025 2:50 PM EDTAssociated Problem(s): Hypertension associated with diabetes (HCC) Well controlled. - QUALITY CONTROL ASSOCIATE coreg - monitor and adjust as needed -BP stable 05/16/25 * Carlos Manuel Landaverde II, MD - 05/16/2025 2:50 PM EDTAssociated Problem(s): Acute on chronic heart failure with preserved ejection fraction (HCC) Echo 2023 normal EF. Euvolemic on exam - monitor I/O, daily weights - diuresis: QUALITY CONTROL ASSOCIATE lasix on hold - QUALITY CONTROL ASSOCIATE coreg -Stable 05/16/25 * Carlos Manuel Landaverde II, MD - 05/16/2025 2:50 PM EDTAssociated Problem(s): Stage 3a chronic kidney disease (HCC) Cre 1.05 at admit. Baseline approx 0.9-1.2. -Cr stable 0.8 * Carlos Manuel Landaverde II, MD - 05/16/2025 2:50 PM EDTAssociated Problem(s): 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 History of CABG - continue lipitor, coreg, ranexa - cardiac monitoring * Carlos Manuel Landaverde II, MD - 05/16/2025 2:50 PM EDTAssociated Problem(s): Wound dehiscence Continue to monitor Cont neurontin 400TID Increased oxycodone 10>15mg dose, improved * Carlos Manuel Landaverde II, MD - 05/16/2025 2:50 PM EDTAssociated Problem(s): Anemia in other chronic diseases classified elsewhere Continue to monitor hemoglobin appears stable at the moment * Carlos Manuel Landaverde II, MD - 05/16/2025 2:50 PM EDTAssociated Problem(s): Goals of care, counseling/discussion Palliative Care on boad * Carlos Manule Landaverde II, MD - 05/16/2025 2:49 PM EDT PROGRESS NOTE Assessment/Plan: Assessment & Plan Diabetic foot infection (HCC) S/P transmetatarsal amputation of foot, left (HCC) Wound dehiscence over previous left TMA site. ESR, CRP normal. WBC wnl. Afebrile. No acute infection. - podiatry consulted - vascular consulted - MRI L foot 05/03 with mild marrow edema of metatarsal distal stump margins without evidence of osteomyelitis - Angiogram performed, minimal blood flow past the knee, recommend AKA but pt declining -Pain control ongonig ; increased oxycodone -D/w vascular surgery as pt now agreeable to AKA PAD (peripheral artery disease) History of angiogram 01/2025. - vascular consulted - arterial studies 05/02 with significant PAD - COMPLIANCE PARALEGAL stenosis Patent popliteal and TPT with severe stenosis Patent proximal QUALITY CONTROL ASSOCIATE but occluded distally without reconstitution Patent DAREN with multifocal severe stenosis, occlusion at the level of the ankle and no distal reconstitution Significant small vessel disease in L foot Paroxysmal atrial fibrillation (HCC) Heart rate controlled. 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 - QUALITY CONTROL ASSOCIATE coreg - cardiac monitoring -Rate controlled 05/16/25 Type 2 diabetes mellitus, without long-term current use of insulin ([facility]) Last A1c 4.8 in 03/2024. QUALITY CONTROL ASSOCIATE meds include none. - hold off on FSBS, correctional algorithm - rpt A1c 5.3 Hypertension associated with diabetes ([facility]) Well controlled. - QUALITY CONTROL ASSOCIATE coreg - monitor and adjust as needed -BP stable 05/16/25 Chronic heart failure with preserved ejection fraction ([facility]) Echo 2023 normal EF. Euvolemic on exam - monitor I/O, daily weights - diuresis: QUALITY CONTROL ASSOCIATE lasix on hold - QUALITY CONTROL ASSOCIATE coreg -Stable 05/16/25 Stage 3a chronic kidney disease (HCC) Cre 1.05 at admit. Baseline approx 0.9-1.2. -Cr stable 0.8 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 History of CABG - continue lipitor, coreg, ranexa - cardiac monitoring Wound dehiscence Continue to monitor Cont neurontin 400TID Increased oxycodone 10>15mg dose, improved Anemia in other chronic diseases classified elsewhere Continue to monitor hemoglobin appears stable at the moment Goals of care, counseling/discussion Palliative Care on boad Dispo: Eventual AKA VTE Prophylaxis: Active Hospital Problems Diagnosis *Diabetic foot infection (HCC) Palliative care by specialist Goals of care, counseling/discussion Wound dehiscence S/P transmetatarsal amputation of foot, left (HCC) Stage 3a chronic kidney disease (HCC) Anemia in other chronic diseases classified elsewhere PAD (peripheral artery disease) Chronic heart failure with preserved ejection fraction (HCC) Paroxysmal atrial fibrillation (HCC) 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 Type 2 diabetes mellitus, without long-term current use of insulin (HCC) Hypertension associated with diabetes (HCC) Subjective: States she talked to son and OK with proceeding with AKA. States pain is not improving, understandswill only get worse Objective: BP 107/44 (Patient Position: Semi Fowlers) Pulse 78 Temp 98.2 ??F (36.8 ??C) (Oral) Resp 18 Ht 5' 2 (1.575 m) Wt 120 lb (54.4 kg) SpO2 95% BMI 21.95 kg/m?? I/O last 3 completed shifts: In: 473 [P.O.:473] Out: - Weight: 120 lb (54.4 kg) Constitutional: Alert and oriented to person, place, and time. No distress. Cardiovascular: Normal rate and regular rhythm. Exam reveals no friction rub. No murmur heard. Pulmonary/Chest: Effort normal and breath sounds normal. No respiratory distress. There are no wheezes. Abdominal: Soft. Bowel sounds are normal. No distension. There is no tenderness. There is no rebound and no guarding. Musculoskeletal: No edema. Neurological: Grossly normal. Labs: Laboratory data and diagnostic testing reviewed 05/16/25. Carlos Manuel Landaverde II, MD 05/16/2025 2:49 PM * Kathryn Emerson MSW - 05/16/2025 12:59 PM EDT 05/16/25 1257 Ongoing Discharge Planning Evaluation Completed by CC/SW Yes Who does pt identify as their caregiver/support person who will be their active partner in the dc planning process Pt identified caregiver/support person for dc planning process Caregiver Name Adriana=sister Anticipated post-acute care needs Nursing Facility Discussed discharge plans with Patient/Family/Caregiver/Support Person Yes, Discussed with patient Discussed discharge plans with Care Team at [facility] Yes, with nurse in attendance;Yes, with doctor in attendance Patient's goals for recovery Return to Prior Level of Functioning;[place] in self-care Discharge to SNF;Acute Rehab Actual Discharge Plan 05/16/2025-NORA UPDATE-Sw reviewed chart. NORA met with patient bedside. Discusseddischarge plan. She stated that she has decided to have surgery. Patient's plan at this time is to [facility] with ambulance transport. NORA will continue to follow. * Tenisha Wong, PT - 05/16/2025 11:27 AM EDT 05/16/25 1112 PT Subjective Note Type Treatment/Progress Patient Room/Unit 4420 PT Subjective Comments #1 pt agreeable with encouragement Others Present/Assisting son Discharge Information This progress note will serve as the discharge summary if no further therapy is provided prior to the patient being discharged from the hospital. Admitting Diagnosis Patient is an 84 year old female admitted 04/30/25 with diabetic foot infection, PAD and wound dehiscence. Deciding on no intervention vs BKA vs AKA Clinical Course chart reviewed through 05/16 Pain Screening PT/OT Patient Currently in Pain Yes Pain Rating 8 Pain Location Foot Pain Orientation Left Pain Intervention(s) Repositioned;Ambulation/Increased activity Cognition Orientation Intact Arousal Normal Safety Awareness Impaired Safety Awareness Impairment Minimal Impairments: Needs up to 25% input/direction from therapist in order to identify safety issues and maintain safety. Affect/Ability to cope Impaired Affect/Ability to cope impairment Anxious;Distracted Command Following Impaired Command following impairment Minimal Impairments: Needs up to 25% input/direction from therapist inorder to follow single step commands. Memory Impaired Memory impairment Decreased recall of recent events;Poor short term memory;Decreased recall of precautions Communication Impaired Vision reports poor vision Additional comments pt does not recall being told she is allowed to WB on L foot; edu on WBAT Precautions Therapy Precautions Yes Weight Bearing Status Left lower extremity;Weight bearing as tolerated Precaution Info Given Yes;Weight bearing;To use call light to request assistance with all mobility Observation Presentation Patient resting in bed Observation Bed alarm;Telemetry Bed Mobility Rolling Stand by assist;Head of bed elevated Additional Comments scoots EOB with cueing, able to sit EOB with SBA Transfers Sit to Stand Minimal assistance;Contact guard assist;With verbal cues Stand to Sit Minimal assistance;Contact guard assistance;With verbal cues Bed to/from chair Minimal assistance;With verbal cues Additional Comments pt stood from EOB with Silvestre to achieve full stand and balance, transferred bed>chair with pt impulsively trying to sit prior to full turn and not bring RW with her req Sivlestre anandd>sit; educated on safety and sequencing with turns/transfers using RW; able to stand from chair CGA with cueing for hand placement Gait Gait Minimal assistance Gait Distance (Feet) 3 Feet Assistive Device 2 Wheel walker Pattern Slow margarito;Antalgic;Decreased step length L;Decreased step length R;Decreased stance timeL Weight Bearing Status Weight bearing as tolerated Additional Comments with encouragement, pt agreeable to try short amb with chair follow from son for safety, pt amb 2' and then turned and amb 1' back to chair which was brought closer to pt; Silvestre for balance and safety, pt complaining of significant pain wtih WB and encouraged to use UE to offloadLLE as needed Functional Status Score (FSS-ICU) Is the patient currently in ICU? No PT/OT Mobility Documentation PT/OT Mobility Score 5 AM PAC: How much help from another person does the patient currently need... turning from your back to your side while in a flat bed without using bedrails? 3 moving from lying on your back to sitting on the side of a flat bed without using bedrails? 3 moving to and from a bed to a chair? 3 standing up from a chair using your arms (e.g. wheelchair, or bedside chair)? 3 need to walk in hospital room? 2 climbing 3-5 steps with a railing? 1 AM PAC: BASIC MOBILITY SCORING AM PAC Moblity Raw Score 15 AM PAC Mobility CMS 0-100% Functional Percentage 50.4 AM PAC Mobility CMS G Code Modifier CK Balance Sitting Balance 2/5 supports self independently with both UEs Standing Balance 1+/5>50% (minimal assistance) Exercise Exercise Yes Additional Comments ther ex performed with BLE elevated in recliner; pt reported fatigue and pain and declined further ther ex Supine Supine SLR's 10x B Supine Hip Abduction 10x B Education Education To use call light to request assistance with all mobility;Patient/Family Education;Role of Therapy;Safety with mobility;Cues for proper technique;Discharge planning;Up with assistance only;Safe and proper technique with gait pattern;Safe and proper technique with transfers;Educated on benefits of mobility, upright positioning, and getting out of bed;Precautions Patient Safety Patient Safety Patient left in chair with needs in reach;Chair/personal alarm activated (son present) Assessment Assessment Decreased gait;Decreased functional mobility;Decreased balance;Decreased RightLower Extremity strength;Decreased Left Lower Extremity strength;Decreased activity tolerance ;Decreased safety judgement Prognosis Fair;With continued PT s/p acute discharge Progress Slow progress toward goals Rationale for Skilled Therapy Fall Risk;Balance Deficits;Not safe with independent transfers;Not safe ambulating independently;Able to make measurable improvements;Decreased endurance and tolerance to activity Additional Comments Pt showed progress with trying to WB on LLE as tolerated and taking steps with PT this session. Pt continues to be limited with functional mobility due to pain at this time. Pt will benefit from continued skilled PT to return to PLOF and progress toward goals. Goals Will Perform Supine To Sit Supervision;Not met Will Perform Sit to Supine With minimal assist;Not assessed Will Perform Sit to Stand With minimal assist;Met;New goal;With stand by assist Will Transfer Bed/Chair With minimal assist;Met;New goal;With contact guard assistance Will Ambulate With 2 wheel walker;1-10 feet;With moderate assist;Partly met Time for Goal Achievement/Duration of Treatment 05/20 Plan Treatment/Interventions Continue with current plan of care PT Frequency 3-5x/week Recommendation PT Recommendation Moderate frequency, moderate intensity five days a week therapy recommended. Time In / Time Out [id number] IP PT Treatment Minutes 23 The total time spent caring for this patient included but was not limited to medical record review;hands-on treatment;communication and education with patient and/or family/caregiver;assessment of the patient's progress since the last session;clinical judgement necessary for treatment planning for next session Updated PT note needed in next 24hrs? Request addressed by PT * Edmar Garcia RN - 05/16/2025 5:33 AM EDT Pt has had an uneventful evening thus far. Vitals have been stable but she did c/o foot pain duringthe night. I gave her pain medicine to assist her in dealing with the pain. The bed is in the lowest position and the call light is within reach. RN to monitor pt for any changes. * Delia Park - 05/15/2025 9:22 PM EDT Images from the original note were not included. 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 Spiritual Strengths and Coping Resources Determination;Accepts help from others;Meaning, ez, support in yazidism practices;Meaningful relationship or connection with God;Self-reflection;Resilience or adaptability;Realistic sense of self;Spends time in prayer/spiritual practices;Support system Spiritual and Emotional Concerns Fear;Concerns around dealth/dying;Concerned for family coping/well-being;Coping with chronic illness;Discouragement;Struggling to find meaning in pain/suffering;Processing decrease in mobility and independence;Sadness Patient Spiritual Wellbeing Moderate Acuity - Spiritual Distress Interventions with Patient Relationship Building Interventions Cultivated a relationship of care and support;Listened empathetically Samaritan Interventions Prayer with patient or family Exploration Interventions Explored alternatives;Discussed illness/injury and its impact;Identified and reinforced appropriate coping strategies and strengths;Provided caring and supportive presence;Provided safe space to process emotions or concerns Empowerment Interventions Affirmed patient's experience Outcomes Expressed Outcomes Met spiritual needs;Identified priorities;Able to discuss emotions;Appreciative of visit;Appreciative of prayer/ritual;Progressed toward acceptance Care Plan Plan for Follow-Up Hand Stemmer(s) will continue to follow throughout admission Add to Follow Up List Yes Rev. Dr.. Delia Park M.Div, D.Min Hand Stemmer, Pastoral and Spiritual Care For non-urgent requests, please place a Pastoral Care consult in [facility]. For all urgent matters, please send an urgent [facility] Secure Chat to the Pastoral Care group at your location. Between 11pm and 7am, please use On-Call Finder to send an [facility] Secure Chat to the on-call counter tacker. Pastoral Care office phone numbers: EDG/COV/GRT [phone], FLORINA [phone], FTT [phone], DBN [phone] * Carlos Manuel Landaverde II, MD - 05/15/2025 2:22 PM EDTAssociated Problem(s): Diabetic foot infection (HCC) Wound dehiscence over previous left TMA site. ESR, CRP normal. WBC wnl. Afebrile. No acute infection. - podiatry consulted - vascular consulted - MRI L foot 05/03 with mild marrow edema of metatarsal distal stump margins without evidence of osteomyelitis - Angiogram performed, minimal blood flow past the knee, recommend AKA but pt declining -Pain control ongonig ; increase neuronting today * Carlos Manuel Landaverde II, MD - 05/15/2025 2:22 PM EDTAssociated Problem(s): S/P transmetatarsal amputation of foot, left (HCC) Wound dehiscence over previous left TMA site. ESR, CRP normal. WBC wnl. Afebrile. No acute infection. - podiatry consulted - vascular consulted - MRI L foot 05/03 with mild marrow edema of metatarsal distal stump margins without evidence of osteomyelitis - Angiogram performed, minimal blood flow past the knee, recommend AKA but pt declining -Pain control ongonig ; increase neuronting today * Carlos Manuel Landaverde II, MD - 05/15/2025 2:22 PM EDTAssociated Problem(s): PAD (peripheral artery disease) History of angiogram 01/2025. - vascular consulted - arterial studies 05/02 with significant PAD - COMPLIANCE PARALEGAL stenosis Patent popliteal and TPT with severe stenosis Patent proximal QUALITY CONTROL ASSOCIATE but occluded distally without reconstitution Patent DAREN with multifocal severe stenosis, occlusion at the level of the ankle and no distal reconstitution Significant small vessel disease in L foot * Carlos Manuel Landaverde II, MD - 05/15/2025 2:22 PM EDTAssociated Problem(s): Paroxysmal atrial fibrillation (HCC) Heart rate controlled. 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 - QUALITY CONTROL ASSOCIATE coreg - cardiac monitoring -Heart rate 94 * Carlos Manuel Landaverde II, MD - 05/15/2025 2:22 PM EDTAssociated Problem(s): Type 2 diabetes mellitus, without long-term current use of insulin (HCC) Last A1c 4.8 in 03/2024. QUALITY CONTROL ASSOCIATE meds include none. - hold off on FSBS, correctional algorithm - rpt A1c 5.3 * Carlos Manuel Landaverde II, MD - 05/15/2025 2:22 PM EDTAssociated Problem(s): Hypertension associated with diabetes (HCC) Well controlled. - QUALITY CONTROL ASSOCIATE coreg - monitor and adjust as needed -BP stable 05/15/25 * Carlos Manuel Landaverde II, MD - 05/15/2025 2:22 PM EDTAssociated Problem(s): Acute on chronic heart failure with preserved ejection fraction (HCC) Echo 2023 normal EF. Euvolemic on exam - monitor I/O, daily weights - diuresis: QUALITY CONTROL ASSOCIATE lasix on hold - QUALITY CONTROL ASSOCIATE coreg -Stable 05/15/25 * Carlos Manuel Landaverde II, MD - 05/15/2025 2:22 PM EDTAssociated Problem(s): Stage 3a chronic kidney disease (HCC) Cre 1.05 at admit. Baseline approx 0.9-1.2. - caution with contrast - note plans for angiogram - monitor renal function closely - avoid hypotension, nephrotoxins as able * Carlos Manuel Landaverde II, MD - 05/15/2025 2:22 PM EDTAssociated Problem(s): 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 History of CABG - continue lipitor, coreg, ranexa - cardiac monitoring * Carlos Manuel Landaverde II, MD - 05/15/2025 2:22 PM EDTAssociated Problem(s): Wound dehiscence Continue to monitor Increased neurontin 300TID ->400TID Increase oxycodone 10>15mg dose * Carlos Manuel Landaverde II, MD - 05/15/2025 2:22 PM EDTAssociated Problem(s): Anemia in other chronic diseases classified elsewhere Continue to monitor hemoglobin appears stable at the moment * Carlos Manuel Landaverde II, MD - 05/15/2025 2:22 PM EDTAssociated Problem(s): Goals of care, counseling/discussion Palliative Care on boad * Carlos Manuel Landaverde II, MD - 05/15/2025 2:19 PM EDT PROGRESS NOTE Assessment/Plan: Assessment & Plan Diabetic foot infection (HCC) S/P transmetatarsal amputation of foot, left (HCC) Wound dehiscence over previous left TMA site. ESR, CRP normal. WBC wnl. Afebrile. No acute infection. - podiatry consulted - vascular consulted - MRI L foot 05/03 with mild marrow edema of metatarsal distal stump margins without evidence of osteomyelitis - Angiogram performed, minimal blood flow past the knee, recommend AKA but pt declining -Pain control ongonig ; increase neuronting today PAD (peripheral artery disease) History of angiogram 01/2025. - vascular consulted - arterial studies 05/02 with significant PAD - COMPLIANCE PARALEGAL stenosis Patent popliteal and TPT with severe stenosis Patent proximal QUALITY CONTROL ASSOCIATE but occluded distally without reconstitution Patent DAREN with multifocal severe stenosis, occlusion at the level of the ankle and no distal reconstitution Significant small vessel disease in L foot Paroxysmal atrial fibrillation (HCC) Heart rate controlled. 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 - QUALITY CONTROL ASSOCIATE coreg - cardiac monitoring -Heart rate 94 Type 2 diabetes mellitus, without long-term current use of insulin ([facility]) Last A1c 4.8 in 03/2024. QUALITY CONTROL ASSOCIATE meds include none. - hold off on FSBS, correctional algorithm - rpt A1c 5.3 Hypertension associated with diabetes ([facility]) Well controlled. - QUALITY CONTROL ASSOCIATE coreg - monitor and adjust as needed -BP stable 05/15/25 Chronic heart failure with preserved ejection fraction ([facility]) Echo 2023 normal EF. Euvolemic on exam - monitor I/O, daily weights - diuresis: QUALITY CONTROL ASSOCIATE lasix on hold - QUALITY CONTROL ASSOCIATE coreg -Stable 05/15/25 Stage 3a chronic kidney disease ([facility]) Cre 1.05 at admit. Baseline approx 0.9-1.2. - caution with contrast - note plans for angiogram - monitor renal function closely - avoid hypotension, nephrotoxins as able 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 History of CABG - continue lipitor, coreg, ranexa - cardiac monitoring Wound dehiscence Continue to monitor Increased neurontin 300TID ->400TID Increase oxycodone 10>15mg dose Anemia in other chronic diseases classified elsewhere Continue to monitor hemoglobin appears stable at the moment Goals of care, counseling/discussion Palliative Care on boad Dispo: Increase pain regimen Add to bowel regimen Will be very difficult to treat her pain and get her to dischargable state without procedure . D/w pt in detail VTE Prophylaxis: Active Hospital Problems Diagnosis *Diabetic foot infection (HCC) Palliative care by specialist Goals of care, counseling/discussion Wound dehiscence S/P transmetatarsal amputation of foot, left (HCC) Stage 3a chronic kidney disease (HCC) Anemia in other chronic diseases classified elsewhere PAD (peripheral artery disease) Chronic heart failure with preserved ejection fraction (HCC) Paroxysmal atrial fibrillation (HCC) 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 Type 2 diabetes mellitus, without long-term current use of insulin ([facility]) Hypertension associated with diabetes (HCC) Subjective: Pain still uncontrolled. Had another direct conversation with pt today stating that her options arelikely to have AKA vs remain in unmitigated pain and likely subsequent sepsis/infection without procedure. Pt states she is overwhelmed. Wants more time to think about it. Objective: BP 126/53 (BP Location: Right arm, Patient Position: Semi Fowlers) Pulse 86 Temp 97.5 ??F (36.4??C) (Oral) Resp 16 Ht 5' 2 (1.575 m) Wt 120 lb (54.4 kg) SpO2 99% BMI 21.95 kg/m?? I/O last 3 completed shifts: In: 855 [P.O.:855] Out: - Weight: 120 lb (54.4 kg) Constitutional: Alert and oriented to person, place, and time. No distress. Cardiovascular: Normal rate and regular rhythm. Exam reveals no friction rub. No murmur heard. Pulmonary/Chest: Effort normal and breath sounds normal. No respiratory distress. There are no wheezes. Abdominal: Soft. Bowel sounds are normal. No distension. There is no tenderness. There is no rebound and no guarding. Musculoskeletal: No edema. Neurological: Grossly normal. Skin: Skin is warm and dry. No erythema. Labs: Laboratory data and diagnostic testing reviewed 05/15/25. pharmacy Carlos Manuel Landaverde II, MD 05/15/2025 2:19 PM 58min total spent * Leti Jefferson APRN - 05/15/2025 1:34 PM EDT Palliative Care Progress Note Consult Location: [facility] Length of Stay: 14 Assessment: Skyler Bautista is a 84 y.o. female ith PVD who presented to the ED with dehiscence of left TMA. Withinitial surgery on 03/09/25, with revision on 03/18/25. Patient has been presented with the treatment options of L AKA. Patient with multiple underlying co morbidities as well. [facility] consulted to assist with goals of care. Decisional Capacity:Fully Decisional Based on determination of decisional capacity, health care surrogateagent: Inactive Advance Directive Document: No documents present in chart, patient lacks decision making capacity, identified next of kin and reviewed goals of care Additional information: Sons, adult children majority rules, /. Surrogate by: DEANDRA per S Palliative Plan of Care: Goals: Patient needing more time to consider treatment options. She is able to verbalize surgical interventions vs comfort focused care. Code: Full Code Symptom Needs: Per Primary Pain: Neurontin 300mg nightly + Acetaminophen prn + Oxy-IR 15mg q4 hrs prn (switch today per Primary) + Morphine 2mg IV q4 hrs prn (0 dose/24hrs) Opioid Induced Constipation: Start senna at bedtime Last noted BM 05/13/25. Psychosocial distress: anticipatory grief, change in QoL and loss on independence. Spiritual distress: None at this time. See [facility] Hand Stemmer note for additional details. [facility] will continue to follow along. Subjective: Voluntary goals of care discussion with patient and [facility] team (RONAN Rider and myself). Patient resting in bed, able to easily arouse and discuss overall goals moving forward. Patient able to verbalize treatment options, with inability to determine overall desires at this time. Patient in a quandary; struggling with the idea behind amputation as she does not foresee an acceptable QoL after and at the same time cannot fathom forgoing surgical intervention that would limit her life expectancy and not being present to support her sons. With patient sharing she relies heavily on her treasure and hopes God will show her his path. Support provided. Son present via telephone (for short period of niels e) and very support of whatever pt desires. With plans for [facility] team to follow up with patient tomorrow for ongoing discussions/support. Objective: Vitals: Vitals: 05/15/25 1220 BP: 126/53 Pulse: 86 Resp: 16 Temp: 97.5 ??F (36.4 ??C) SpO2: 99% Physical Exam: General: patient appears alert, comfortable and in no acute distress, thin and frail Neurological: alert and oriented to person, place, & time Lungs: clear to auscultation bilaterally Cardiac: heart tones regular Abdomen: abdomen is nondistended Extremities: no clubbing or edema. L foot with necrotic suture line Medically Ready for discharge per Palliative Care Standpoint?: Yes Will follow-up in clinic?: No Medication recommendations?: per Primary Prescribing Care team at discharge?: per Primary Will sign off?: No Collaborated with Floor SW/Anite. Thank you for the opportunity to participate in the care of this patient. We will follow along withyou. Please contact the palliative care service team with questions or concerns. Leti Jefferson APRN - Palliative Care Services Time-Based Billing Statement I spent 64 minutes in the care of this patient on this calendar day. Activities performed during this time include: Reviewing labs, Performing the appropriate exam, Counseling and educating, Referring and communicating with another professional, Documenting clinical information in the EHR, and Care coordination The total time documented above did not include the following activities which were also performed on this calendar day: None * Adry Alcazar - 05/15/2025 11:45 AM EDT 05/15/25 1145 Palliative interventions Spiritual support Spiritual support and counseling by palliative professional for patient Palliative Care Hand Stemmer Pastoral Care Interventions Spiritual-emotional support;Goals of care counseling/education;Prayer;Address theological questions/concerns Spiritual acuity Normal complexity Care Plan ([facility] Hand Stemmer will attempt to follow up on 05/16.) Length of time in minutes spent with pt/family/chart review 60 Referred By Palliative Care Nurse Practitioner (Everett BROWN/Mitzy) Palliative Care PHOTO OFFSET PRINTER/Mitzy and Hand Stemmer met with patient to talk about her thoughts relative to the proposed BKA. Patient repeatedly shared that she is distressed at the idea of having the majority of her leg amputated, and she does not want to be stuck in a wheelchair for the rest of her life. At the same time, she perceives amputation to be the only path to maximizing her time with her sons, who are the most important thing in her life . PHOTO OFFSET PRINTER/Li introduced the alternative option of pursuing hospice care, but pt did not share her thoughts about this possibility. Patient has a strong Pentecostal treasure, but questions why she continues to suffer despite praying every day for healing. Commissioned Sales Associate explored with patient the notion that God hears her prayers, though sometimes responds in ways that are different from what we hope. Patient acknowledged that she trusts Godis with her and takes care of her. Hand Stemmer encouraged patient to listen to what God might want to say to her heart, and pt stated that she will try to do this. Commissioned Sales Associate prayed with patient for God to reveal God's plan as she continues to think about whether or not to choose amputation. Patient requested follow up counter tacker visits. Commissioned Sales Associate will attempt to see annin on 05/16. Adry Alcazar, [facility] Hand Stemmer, Palliative Care * Shonna Park, MAHENDRA - 05/14/2025 11:18 PM EDT assumed care for pt from 1500 - 2300 was told by another RN that she was impacted and stool was very hard and un passable. provider madeaware and fleets enema ordered and administered by this RN at 2203. no stool from enema at this point last bm was 5 days ago * Nicole Zaidi, MIKE - 05/14/2025 3:12 PM EDT 05/14/25 1454 PT Subjective Note Type Treatment/Progress Patient Room/Unit 4420 PT Subjective Comments #1 Agreeable. Once seated, asked to use bed side toilet. Not sure what she wants to do with her leg yet. C/o hand/arm being weak. Discharge Information This progress note will serve as the discharge summary if no further therapy is provided prior to the patient being discharged from the hospital. Admitting Diagnosis Patient is an 84 year old female admitted 04/30/25 with diabetic foot infection, PAD and wound dehiscence. Deciding on no intervention vs BKA vs AKA Clinical Course 05/12: Awaiting decision regarding AKA versus BKA versus no intervention. Recommended AKA based on vascular surgery guidelines and angiogram Pain Screening PT/OT Patient Currently in Pain Yes Pain Rating Patient unable to rate pain Pain Location Foot Pain Orientation Left Pain Intervention(s) Repositioned;Ambulation/Increased activity Cognition Orientation Intact Arousal Normal Safety Awareness Impaired Safety Awareness Impairment Minimal Impairments: Needs up to 25% input/direction from therapist in order to identify safety issues and maintain safety. Affect/Ability to cope Impaired Affect/Ability to cope impairment Anxious Command Following Impaired Command following impairment Minimal Impairments: Needs up to 25% input/direction from therapist inorder to follow single step commands. Communication Impaired Vision reports poor vision Precautions Weight Bearing Status Left lower extremity;Weight bearing as tolerated Precaution Info Given Yes;To use call light to request assistance with all mobility;Weight bearing Observation Presentation Patient resting in bed Posture laying on right side Observation Bed alarm;Telemetry Bed Mobility Rolling Stand by assist;Head of bed slightly elevated;With bed rails Supine to Sit Minimal assistance;Head of bed slightly elevated;With bed rails Additional Comments SOSOB with CGA then Mod (I). Assisted to scoot to EOB and cues to lean fwds. Transfers Sit to Stand Contact guard assist;Minimal assistance;Moderate assistance;With verbal cues Stand to Sit Contact guard assistance;Minimal assistance;With verbal cues Bed to/from chair Minimal assistance;Moderate assistance;With verbal cues Additional Comments bed to BSC to pt's right with min/mod A and cues for hand placement as pt wanting to hold writers arms. Cues to reach for opp arm rest of BSC. Assisted to doff underwear turned toBSC and (I) with hygiene. Stood to clean self with wash cloth. Assist to don underwear. Pt using bedside rails for support with standing and turning to chair to pt's right. Sat & rested. Stood w/ rolling walker x 2 reps with mod cues for hand placement and how to hold foot up 2* pain. pt stood ~ 1 min each time and mod cues to reach back to chair before sitting. Gait Gait Not performed Functional Status Score (FSS-ICU) Is the patient currently in ICU? No PT/OT Mobility Documentation PT/OT Mobility Score 5 AM PAC: How much help from another person does the patient currently need... turning from your back to your side while in a flat bed without using bedrails? 3 moving from lying on your back to sitting on the side of a flat bed without using bedrails? 3 moving to and from a bed to a chair? 2 standing up from a chair using your arms (e.g. wheelchair, or bedside chair)? 2 need to walk in hospital room? 1 climbing 3-5 steps with a railing? 1 AM PAC: BASIC MOBILITY SCORING AM PAC Moblity Raw Score 12 AM PAC Mobility CMS 0-100% Functional Percentage 61.94 AM PAC Mobility CMS G Code Modifier CL Balance Sitting Balance 2/5 supports self independently with both UEs;2+/5 supports self with 1 UE Standing Balance 1+/5>50% (minimal assistance) Exercise Exercise No Education Education To use call light to request assistance with all mobility;Patient/Family Education;Role of Therapy;Safety with mobility;Cues for proper technique;Up with assistance only;Safe and proper post ure/positioning;Safe and proper technique with transfers;Safe and proper technique with gait pattern;Educated on benefits of mobility, upright positioning, and getting out of bed Additional Comments Edu on use of walker for standing and eventually using for transfers as will besafer than trying to hold onto other people. Patient Safety Patient Safety Patient left in chair with needs in reach;Chair/personal alarm activated Assessment Assessment Decreased gait;Decreased functional mobility;Decreased balance;Decreased activity tolerance ;Decreased safety judgement ;Decreased endurance;Decreased self-care transfers Prognosis Fair;With continued PT s/p acute discharge Progress Slow progress toward goals Rationale for Skilled Therapy Fall Risk;Balance Deficits;Not safe with independent transfers;Not safe ambulating independently;Not independent with home exercise program;Needs intensive therapy;Requires multi-disciplinary team;Able to make measurable improvements;Decreased endurance and tolerance to activity Additional Comments Pt able to stand with walker this date. Prefers not to put wt on left LE but she did some with transfers [id number] but didn't with static standing. May benefit from forefoot relief shoe if decides not to amputate. Needs cues for safety t/o session. Overall limited by pain. Goals Will Perform Supine To Sit Supervision;Not met Will Perform Sit to Supine With minimal assist;Not assessed Will Perform Sit to Stand With minimal assist;Partly met Will Transfer Bed/Chair With minimal assist;Not met Will Ambulate With 2 wheel walker;1-10 feet;With moderate assist;Not assessed Time for Goal Achievement/Duration of Treatment 05/20 Plan Treatment/Interventions Continue with current plan of care PT Frequency 3-5x/week Recommendation PT Recommendation Moderate frequency, moderate intensity five days a week therapy recommended. Time In / Time Out [id number] IP PT Treatment Minutes 31 The total time spent caring for this patient included but was not limited to medical record review;hands-on treatment;communication and education with patient and/or family/caregiver;assessment of the patient's progress since the last session;communication with nursing and/or care coordination/social work regarding patient status and discharge planning * Carlos Manuel Landaverde II, MD - 05/14/2025 2:51 PM EDTAssociated Problem(s): Diabetic foot infection (HCC) Wound dehiscence over previous left TMA site. ESR, CRP normal. WBC wnl. Afebrile. No acute infection. - podiatry consulted - vascular consulted - MRI L foot 718 with mild marrow edema of metatarsal distal stump margins without evidence of osteomyelitis - Angiogram performed, minimal blood flow past the knee, recommend AKA but pt declining -Pain control ongonig ; increase neuronting today * Carlos Manuel Landaverde II, MD - 05/14/2025 2:51 PM EDTAssociated Problem(s): S/P transmetatarsal amputation of foot, left (HCC) Wound dehiscence over previous left TMA site. ESR, CRP normal. WBC wnl. Afebrile. No acute infection. - podiatry consulted - vascular consulted - MRI L foot 18 with mild marrow edema of metatarsal distal stump margins without evidence of osteomyelitis - Angiogram performed, minimal blood flow past the knee, recommend AKA but pt declining -Pain control ongonig ; increase neuronting today * Carlos Manuel Landaverde II, MD - 05/14/2025 2:51 PM EDTAssociated Problem(s): Hypertension associated with diabetes (HCC) Well controlled. - QUALITY CONTROL ASSOCIATE coreg - monitor and adjust as needed -BP stable 05/14/25 * Carlos Manuel Landaverde II, MD - 05/14/2025 2:51 PM EDTAssociated Problem(s): Acute on chronic heart failure with preserved ejection fraction (HCC) Echo 2023 normal EF. Euvolemic on exam - monitor I/O, daily weights - diuresis: QUALITY CONTROL ASSOCIATE lasix on hold - QUALITY CONTROL ASSOCIATE coreg -Stable 05/14/25 * Carlos Manuel Landaverde II, MD - 05/14/2025 2:51 PM EDTAssociated Problem(s): Goals of care, counseling/discussion Palliative Care on boad * Hallie Silva RD,LD - 05/14/2025 1:34 PM EDT [facility] Nutrition Reassessment Nutrition Prescription: Kcals: 1111-4498 kcal (25-30 kcal/kg, based on 54.4 kg) Protein (g): 65-82 gm Protein needs based on: 1.2-1.5 gm/kg Fluid (ml): 1 ml/kcal or per MD Based on 54.4 kg Plan/Interventions: Meals and Snacks: Regular Medical Food Supplements: Cristine, Glucerna Therapeutic Medical Food/Supplement Freq: Cristine BID, Glucerna decrease to daily Nutrition-Related Medication Management: Prontoix, Senna Nutrition Education: Supplements, Increased nutrients for wound healing Collaboration And Referral Of Nutrition Care: Collaboration with other providers Skyler Bautista is a 84 y.o. female patient. Admit Diagnosis: Wound dehiscence [T81.30XA] Diabetic foot infection (HCC) [E11.628, L08.9] Subjective: Subjective Comment: Pt visited for nutrition follow up. She reports a good appetite/intake and thatshe's eating 2 meals/day and drinking the oral supplements .Average meal intakes appear slightly improved per flowsheets. 3 unopened Glucernas and 1 Cristine noted on bedside - pt wishes to decrease the Glucerna to daily. Encouraged continued meal/protein and supplement intake for healing. Pt voices understanding, will monitor. Anthropometric Measurements: Height: 5' 2 (157.5 cm) Weight: 120 lb (54.4 kg) BMI (Calculated): 21.95 BMI Assessment: 18.5-24.9 Normal IBW +/- 10%: 110 lb (49.9 kg) % IBW: 109 Other (Comment): +7.4 L, edema present - anticipate fluctuations Food/Nutrition Related History: Dietary Orders Ordered Regular Diet DIET EFFECTIVE NOW 05/10/25 1851 GLUCERNA Therapeutic oral supplement 1 'box' Oral BID with Meals 1 'box' at 05/13/25 0904 CRISTINE powder oral supplement 1 Packet Oral BID 1 Packet at 05/13/25 0905 Food Insecurity Within the past 12 months, you worried that your food would run out before you got the money to buymore.: Never true Within the past 12 months, the food you bought just didn't last and you didn't have money to get more.: Never true % Avg Meals Consumed: 71 % (x 6) Supplement Acceptance: Cristine BID: accepting 1-2, Glucerna BID: accepted 240 ml yesterday Tube Feeding?: No TPN?: No Food Allergies: NKFA Nutrition Focused Physical Findings: LDAs- Active NG/OG/NJ,Wound,Pressure Injury,or Drain Wound Duration Incision/Wound Amputation Foot Left 14 days Incision/Wound Skin tear Hand Posterior;Right 14 days Incision/Wound MASD Coccyx Mid gluteal split 7 days I/O last 3 completed shifts: In: 600 [P.O.:600] Out: - Edema:Right Lower Extremity Edema: +1 Left Lower Extremity Edema: +1 Abdomen: Abdominal/GI Abdomen Inspection: Soft Bowel Sounds (All Quadrants): Active Nausea: No When was last BM? (Date): 05/14/25 Stool Assessment: Stool Occurrence: 1 Stool Appearance: Type 4 [place] Stool Chart Stool Color: Michael Stool Amount: (one extra small piece stool) Biochemical Data/Medical Tests: Pertinent Labs: No new BMP Clinical Course: Clinical Course: Pt admitted w/ L TMA dehiscence. Podiatry recommending BKA, pt refusing. LE angio,recommends AKA. Palliative care consulted. Vas s/o unless patient agrees to BKA. * Carlos Manuel Landaverde II, MD - 05/14/2025 10:10 AM EDTAssociated Problem(s): PAD (peripheral artery disease) History of angiogram 01/2025. - vascular consulted - arterial studies 05/02 with significant PAD - COMPLIANCE PARALEGAL stenosis Patent popliteal and TPT with severe stenosis Patent proximal QUALITY CONTROL ASSOCIATE but occluded distally without reconstitution Patent DAREN with multifocal severe stenosis, occlusion at the level of the ankle and no distal reconstitution Significant small vessel disease in L foot * Carlos Manuel Landaverde II, MD - 05/14/2025 10:10 AM EDTAssociated Problem(s): Paroxysmal atrial fibrillation (HCC) Heart rate controlled. 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 - QUALITY CONTROL ASSOCIATE coreg - cardiac monitoring -Heart rate 94 * Carlos Manuel Landaverde II, MD - 05/14/2025 10:10 AM EDTAssociated Problem(s): Type 2 diabetes mellitus, without long-term current use of insulin (HCC) Last A1c 4.8 in 03/2024. QUALITY CONTROL ASSOCIATE meds include none. - hold off on FSBS, correctional algorithm - rpt A1c 5.3 * Carlos Manuel Landaverde II, MD - 05/14/2025 10:10 AM EDTAssociated Problem(s): Stage 3a chronic kidney disease (HCC) Cre 1.05 at admit. Baseline approx 0.9-1.2. - caution with contrast - note plans for angiogram - monitor renal function closely - avoid hypotension, nephrotoxins as able * Carlos Manuel Landaverde II, MD - 05/14/2025 10:10 AM EDTAssociated Problem(s): 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 History of CABG - continue lipitor, coreg, ranexa - cardiac monitoring * Carlos Manuel Landaverde II, MD - 05/14/2025 10:10 AM EDTAssociated Problem(s): Wound dehiscence Continue to monitor * Carlos Manuel Landaverde II, MD - 05/14/2025 10:10 AM EDTAssociated Problem(s): Anemia in other chronic diseases classified elsewhere Continue to monitor hemoglobin appears stable at the moment * Carlos Manuel Landaverde II, MD - 05/14/2025 10:10 AM EDT PROGRESS NOTE Assessment/Plan: Assessment & Plan Diabetic foot infection (HCC) S/P transmetatarsal amputation of foot, left ([facility]) Wound dehiscence over previous left TMA site. ESR, CRP normal. WBC wnl. Afebrile. No acute infection. - podiatry consulted - vascular consulted - MRI L foot 05/03 with mild marrow edema of metatarsal distal stump margins without evidence of osteomyelitis - Angiogram performed, minimal blood flow past the knee, recommend AKA but pt declining -Pain control ongonig ; increase neuronting today PAD (peripheral artery disease) History of angiogram 01/2025. - vascular consulted - arterial studies 05/02 with significant PAD - COMPLIANCE PARALEGAL stenosis Patent popliteal and TPT with severe stenosis Patent proximal QUALITY CONTROL ASSOCIATE but occluded distally without reconstitution Patent DAREN with multifocal severe stenosis, occlusion at the level of the ankle and no distal reconstitution Significant small vessel disease in L foot Paroxysmal atrial fibrillation (HCC) Heart rate controlled. 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 - QUALITY CONTROL ASSOCIATE coreg - cardiac monitoring -Heart rate 94 Type 2 diabetes mellitus, without long-term current use of insulin ([facility]) Last A1c 4.8 in 03/2024. QUALITY CONTROL ASSOCIATE meds include none. - hold off on FSBS, correctional algorithm - rpt A1c 5.3 Hypertension associated with diabetes ([facility]) Well controlled. - QUALITY CONTROL ASSOCIATE coreg - monitor and adjust as needed -BP stable 05/14/25 Chronic heart failure with preserved ejection fraction ([facility]) Echo 2023 normal EF. Euvolemic on exam - monitor I/O, daily weights - diuresis: QUALITY CONTROL ASSOCIATE lasix on hold - QUALITY CONTROL ASSOCIATE coreg -Stable 05/14/25 Stage 3a chronic kidney disease ([facility]) Cre 1.05 at admit. Baseline approx 0.9-1.2. - caution with contrast - note plans for angiogram - monitor renal function closely - avoid hypotension, nephrotoxins as able 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 History of CABG - continue lipitor, coreg, ranexa - cardiac monitoring Wound dehiscence Continue to monitor Anemia in other chronic diseases classified elsewhere Continue to monitor hemoglobin appears stable at the moment Goals of care, counseling/discussion Palliative Care on boad Dispo: Pending pain control , remain inpt VTE Prophylaxis: Active Hospital Problems Diagnosis *Diabetic foot infection (HCC) Palliative care by specialist Goals of care, counseling/discussion Wound dehiscence S/P transmetatarsal amputation of foot, left (HCC) Stage 3a chronic kidney disease (HCC) Anemia in other chronic diseases classified elsewhere PAD (peripheral artery disease) Chronic heart failure with preserved ejection fraction (HCC) Paroxysmal atrial fibrillation (HCC) 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 Type 2 diabetes mellitus, without long-term current use of insulin (HCC) Hypertension associated with diabetes (HCC) Subjective: C/o constipation Still with LE pain Objective: BP 134/61 Pulse 81 Temp 97.5 ??F (36.4 ??C) (Oral) Resp 20 Ht 5' 2 (1.575 m) Wt 120 lb (54.4 kg) SpO2 97% BMI 21.95 kg/m?? I/O last 3 completed shifts: In: 600 [P.O.:600] Out: - Weight: 120 lb (54.4 kg) Constitutional: Alert and oriented to person, place, and time. No distress. Cardiovascular: Normal rate and regular rhythm. Exam reveals no friction rub. No murmur heard. Pulmonary/Chest: Effort normal and breath sounds normal. No respiratory distress. There are no wheezes. Abdominal: Soft. Bowel sounds are normal. No distension. There is no tenderness. There is no rebound and no guarding. Musculoskeletal: No edema. Neurological: Grossly normal. Skin: LE gangrenous changes noted Labs: Laboratory data and diagnostic testing reviewed 05/14/25. Carlos Manuel Landaverde II, MD 05/14/2025 10:10 AM * Nicole Zaidi PTA - 05/14/2025 8:57 AM EDT 05/14/25 0856 PT Subjective Note Type Follow Up Treatment Attempt Patient Room/Unit 4420 PT Subjective Comments #1 Pt c/o being too cold. Wants to wait until later if able. Therapy delay reason Patient declined * Steffanie Sawyer RN - 05/14/2025 6:08 AM EDT Pt declined AM vitals * Kaz Robertson MD - 05/13/2025 1:41 PM EDTAssociated Problem(s): Paroxysmal atrial fibrillation (HCC) Heart rate controlled. 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 - QUALITY CONTROL ASSOCIATE coreg - cardiac monitoring -Heart rate 94 * Kaz Robertson MD - 05/13/2025 1:41 PM EDTAssociated Problem(s): Hypertension associated with diabetes (HCC) Well controlled. - QUALITY CONTROL ASSOCIATE coreg - monitor and adjust as needed -Blood pressure 113/46 * Kaz Robertson MD - 05/13/2025 1:41 PM EDTAssociated Problem(s): Diabetic foot infection (HCC) Wound dehiscence over previous left TMA site. ESR, CRP normal. WBC wnl. Afebrile. No acute infection. - podiatry consulted - vascular consulted - MRI L foot 05/03 with mild marrow edema of metatarsal distal stump margins without evidence of osteomyelitis - Angiogram performed, minimal blood flow past the knee, recommend AKA - Patient discussed with vascular surgery and now will undergo AKA * Kaz Robertson MD - 05/13/2025 1:41 PM EDTAssociated Problem(s): S/P transmetatarsal amputation of foot, left (HCC) Wound dehiscence over previous left TMA site. ESR, CRP normal. WBC wnl. Afebrile. No acute infection. - podiatry consulted - vascular consulted - MRI L foot 05/03 with mild marrow edema of metatarsal distal stump margins without evidence of osteomyelitis - Angiogram performed, minimal blood flow past the knee, recommend AKA - Patient discussed with vascular surgery and now will undergo AKA * Spencer Dye - 05/13/2025 11:49 AM EDT 05/13/25 1100 Reason for Visit Date of visit 05/13/25 Visited With Patient Visited By Hand Stemmer Reason for Visit Decision making (Pt reports she meets with doctor today.) Patient Assessment Patient Appears Fearful;Dissatisfied (Pt expressed fears/anxiety over a possible aka. 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[employer] Spiritual Strengths and Coping Resources Hopefulness (Pt is a person of treasure/spoke of divine love and hope.) Spiritual and Emotional Concerns Struggling to find meaning in pain/suffering;Lack of peace;Fear Interventions with Patient Relationship Building Interventions Listened empathetically Samaritan Interventions Prayer with patient or family Exploration Interventions Explored sources of strength and hope;Identified and reinforced appropriate coping strategies and strengths;Provided caring and supportive presence;Provided safe space to process emotions or concerns;Discussed illness/injury and its impact Empowerment Interventions Affirmed patient's experience (Affirmed and validatred pt's emotionas and fears, and concerns.) Outcomes Expressed Outcomes Met spiritual needs;Able to discuss emotions;Appreciative of prayer/ritual Care Plan Plan for Follow-Up Hand Stemmer(s) will continue to follow throughout admission Add to Follow Up List Yes * Teo De La Torre PA-C - 05/13/2025 10:29 AM EDT Images from the original note were not included. Patient Name:Skyler Bautista : 1940 Admitting Diagnosis: Diabetic foot infection (HCC) INTERVAL HISTORY Patient seen and examined. Resting in the bedside chair. No family at bedside. MEDICAL HISTORY Scheduled Medications: ALPRAZolam 0.5 mg Oral Nightly atorvastatin 40 mg Oral Nightly carvediloL 12.5 mg Oral BID dorzolamide-timoloL 1 Drop Ophthalmic BID gabapentin 300 mg Oral Nightly GLUCERNA Therapeutic 1 'box' Oral BID with Meals CRISTINE powder 1 Packet Oral BID latanoprost 1 Drop Ophthalmic Nightly pantoprazole 40 mg Oral Daily ranolazine 1,000 mg Oral Daily Allergy: Allergies Allergen Reactions Lidocaine Rash Last Recorded Vital Signs: Temp: 97.5 ??F (36.4 ??C) Pulse: 93 BP: 117/54 Resp: 18 SpO2: 97 % O2 Flow Rate (L/min): 2 lpm Intake/Output Summary (Last 24 hours) at 05/13/2025 1030 Last data filed at 05/13/2025 1020 Gross per 24 hour Intake 1073 ml Output -- Net 1073 ml LABS AND RADIOLOGY Pertinent Labs: none PHYSICAL EXAMINATION Physical Exam: No acute distress. Resting in bedside chair. L TMA with necrotic suture line. Rest of PE unchanged. MEDICAL DECISION MAKING Active Hospital Problems Diagnosis *Diabetic foot infection (HCC) Wound dehiscence S/P transmetatarsal amputation of foot, left (HCC) Stage 3a chronic kidney disease (HCC) Anemia in other chronic diseases classified elsewhere PAD (peripheral artery disease) Chronic heart failure with preserved ejection fraction (HCC) Paroxysmal atrial fibrillation (HCC) 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 Type 2 diabetes mellitus, without long-term current use of insulin (HCC) Hypertension associated with diabetes (HCC) Assessment: S/p Aortogram, LLE angio, RLE angio 05/10 Failing left TMA. Hx L frontotemporal hemorrhagic contusion, bilateral SAH and SDH Hx frequent falls Paroxysmal atrial fibrillation Chronic CHF Plan: The patient is still undecided if she wants to proceed with higher amputation (BKA vs AKA). She will need to discuss further with family. Further input once seen by the vascular surgeon. (>25 minutes was spent discussing the above surgery, plan ect) Signed: Teo De La Torre PA-C 05/13/2025 10:30 AM Cosigned by Lawrence Wolf MD at 05/13/2025 2:38 PM EDT Associated attestation - Lawrence Wolf MD - 05/13/2025 2:38 PM EDT Discussed situation with patient and son. Discussed L AKA vs BKA. I recommend an AKA. Discussed that she would not likely benefit from BKA as her age and frailty significantly decreases likelihood ofambulating with a prosthetic and has a higher risk of not healing as well as a higher risk of complication if patient were to fall on the BKA stump. All questions were answered. Patient states she needs more time to think about it. Vascular will sign off for now. If patient agreeable to proximal amputation, please re-engage vascular surgery. Lawrence Wolf MD * Kaz Robertson MD - 05/13/2025 9:08 AM EDTAssociated Problem(s): PAD (peripheral artery disease) History of angiogram 01/2025. - vascular consulted - arterial studies 05/02 with significant PAD - COMPLIANCE PARALEGAL stenosis Patent popliteal and TPT with severe stenosis Patent proximal QUALITY CONTROL ASSOCIATE but occluded distally without reconstitution Patent DAREN with multifocal severe stenosis, occlusion at the level of the ankle and no distal reconstitution Significant small vessel disease in L foot * Kaz Robertson MD - 05/13/2025 9:08 AM EDTAssociated Problem(s): Type 2 diabetes mellitus, without long-term current use of insulin (HCC) Last A1c 4.8 in 03/2024. QUALITY CONTROL ASSOCIATE meds include none. - hold off on FSBS, correctional algorithm - rpt A1c 5.3 * Kaz Robertson MD - 05/13/2025 9:08 AM EDTAssociated Problem(s): Acute on chronic heart failure with preserved ejection fraction (HCC) Echo 2023 normal EF. Euvolemic on exam - monitor I/O, daily weights - diuresis: QUALITY CONTROL ASSOCIATE lasix on hold - QUALITY CONTROL ASSOCIATE coreg * Kaz Robertson MD - 05/13/2025 9:08 AM EDTAssociated Problem(s): Stage 3a chronic kidney disease (HCC) Cre 1.05 at admit. Baseline approx 0.9-1.2. - caution with contrast - note plans for angiogram - monitor renal function closely - avoid hypotension, nephrotoxins as able * Kaz Robertson MD - 05/13/2025 9:08 AM EDTAssociated Problem(s): 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 History of CABG - continue lipitor, coreg, ranexa - cardiac monitoring * Kaz Robertson MD - 05/13/2025 9:08 AM EDTAssociated Problem(s): Wound dehiscence Continue to monitor * Kaz Robertson MD - 05/13/2025 9:08 AM EDTAssociated Problem(s): Anemia in other chronic diseases classified elsewhere Continue to monitor hemoglobin appears stable at the moment * Kaz Robertson MD - 05/13/2025 9:08 AM EDT Images from the original note were not included. Hospitalist Progress Note Assessment & Plan Diabetic foot infection (HCC) S/P transmetatarsal amputation of foot, left (HCC) Wound dehiscence over previous left TMA site. ESR, CRP normal. WBC wnl. Afebrile. No acute infection. - podiatry consulted - vascular consulted - MRI L foot 05/03 with mild marrow edema of metatarsal distal stump margins without evidence of osteomyelitis - Angiogram performed, minimal blood flow past the knee, recommend AKA - Patient discussed with vascular surgery and now will undergo AKA PAD (peripheral artery disease) History of angiogram 01/2025. - vascular consulted - arterial studies 05/02 with significant PAD - COMPLIANCE PARALEGAL stenosis Patent popliteal and TPT with severe stenosis Patent proximal QUALITY CONTROL ASSOCIATE but occluded distally without reconstitution Patent DAREN with multifocal severe stenosis, occlusion at the level of the ankle and no distal reconstitution Significant small vessel disease in L foot Paroxysmal atrial fibrillation (HCC) Heart rate controlled. 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 - QUALITY CONTROL ASSOCIATE coreg - cardiac monitoring -Heart rate 94 Type 2 diabetes mellitus, without long-term current use of insulin ([facility]) Last A1c 4.8 in 03/2024. QUALITY CONTROL ASSOCIATE meds include none. - hold off on FSBS, correctional algorithm - rpt A1c 5.3 Hypertension associated with diabetes ([facility]) Well controlled. - QUALITY CONTROL ASSOCIATE coreg - monitor and adjust as needed -Blood pressure 113/46 Chronic heart failure with preserved ejection fraction ([facility]) Echo 2023 normal EF. Euvolemic on exam - monitor I/O, daily weights - diuresis: QUALITY CONTROL ASSOCIATE lasix on hold - QUALITY CONTROL ASSOCIATE coreg Stage 3a chronic kidney disease ([facility]) Cre 1.05 at admit. Baseline approx 0.9-1.2. - caution with contrast - note plans for angiogram - monitor renal function closely - avoid hypotension, nephrotoxins as able 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 History of CABG - continue lipitor, coreg, ranexa - cardiac monitoring Wound dehiscence Continue to monitor Anemia in other chronic diseases classified elsewhere Continue to monitor hemoglobin appears stable at the moment Diet: Regular Diet Code Status: Full Code Rationale for Skilled Therapy: Fall Risk; Balance Deficits; Not safe with independent transfers; Not safe ambulating independently; Needs verbal/tactile cues for ADL's; Requires physical assistance with ADLs; Needs intensive therapy; Requires multi-disciplinary team; Able to make measurable improvements; Decreased endurance and tolerance to activity (05/13/2025 8:53 AM) PT Recommendation: Moderate frequency, moderate intensity five days a week therapy recommended. (05/13/2025 8:08 AM) OT Recommendation: Moderate frequency, moderate intensity five days a week therapy recommended. (05/13/2025 8:53 AM) Handoff Completed: Yes Disposition Perspective - Medically ready for discharge: No Anticipated ready for discharge timeframe?: 3 to 5 days Ready for discharge when / if?: Surgical intervention performed Admitted on 04/30/2025: with: Diabetic foot infection status post transmetatarsal amputation of the left foot, now with peripheral vascular disease necessitating [id number] amputation. Patient needs to decide on further surgical intervention Estimated Date of Discharge: 05/14/2025 Date of Admission: 04/30/2025 Chief Complaint: Foot pain Subjective: Patient seen and examined. Patient once again does not remember who I am despite me seeing her for the past 6 days. She just got done talking with vascular surgery who recommended an [id number] amputation. Will need to discuss with family regarding plans due to patient's inability make that decision for herself Discussed with specialist care team Medications: Reviewed Infusion Medications Scheduled Medications ALPRAZolam 0.5 mg Oral Nightly atorvastatin 40 mg Oral Nightly carvediloL 12.5 mg Oral BID dorzolamide-timoloL 1 Drop Ophthalmic BID gabapentin 300 mg Oral Nightly GLUCERNA Therapeutic 1 'box' Oral BID with Meals CRISTINE powder 1 Packet Oral BID latanoprost 1 Drop Ophthalmic Nightly pantoprazole 40 mg Oral Daily ranolazine 1,000 mg Oral Daily PRN Meds: acetaminophen, acetaminophen, dextrose, glucagon AND sterile water, morphine OR [DISCONTINUED] morphine, oxyCODONE Intake/Output Summary (Last 24 hours) at 05/13/2025 0908 Last data filed at 05/13/2025 0904 Gross per 24 hour Intake 713 ml Output -- Net 713 ml Physical Exam Performed: BP 117/54 (BP Location: Right arm, Patient Position: Semi Fowlers) Pulse 93 Temp 97.5 ??F (36.4??C) (Oral) Resp 18 Ht 5' 2 (1.575 m) Wt 120 lb (54.4 kg) SpO2 97% BMI 21.95 kg/m?? Physical Exam Vitals and nursing note reviewed. HENT: Head: Normocephalic. Nose: Nose normal. Eyes: Pupils: Pupils are equal, round, and reactive to light. Cardiovascular: Rate and Rhythm: Normal rate. Pulmonary: Effort: Pulmonary effort is normal. Abdominal: Palpations: Abdomen is soft. Neurological: Mental Status: She is alert. I personally reviewed and interpreted daily labs not applicable Labs: No results for input(s): WBC , HGB , HCT , PLT in the last 72 hours. No results for input(s): NA , K , CL , CO2 , BUN , CREATININE , CALCIUM , PHOS in the last72 hours. Invalid input(s): MAGNES No results for input(s): AST , ALT , BILIDIR , BILITOT , ALKPHOS in the last 72 hours. No results for input(s): INR in the last 72 hours. Urinalysis: No results found for: WBCUA , BACTERIA , RBCUA , BLOODU , SPECGRAV , GLUCOSEU , KETONESU I personally reviewed and interpreted imaging not applicable Radiology: MRI FOOT LEFT WO CONTRAST Final Result 1. Status post transmetatarsal amputation. There is mild marrow edema the metatarsal distal stump margins without evidence of osteomyelitis. 2. Dorsal soft tissue wound of the distal stump without an abscess. VA US LOWER EXTREMITY ARTERIAL DUPLEX COMPLETE Final Result Conclusions * Triphasic Doppler flow pattern is noted in the right and left common femoral artery. * 20-49% stenosis right common femoral artery. * 20-49% stenosis proximal profunda artery. * 50-99% stenosis right proximal and mid SFA. * 50-99% stenosis right proximal anterior tibial artery. 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 * 50-99% stenosis left proximal/mid SFA. * 20-49% stenosis left distal SFA. * Occlusion left posterior tibial artery. * The great toe PPG waveform is absent. * There is a left TMA. * The right anterior tibial artery is non-compressible. * RABI: 0.50. * LABI: 1.35. * The right FERNIE is in the severe claudication range and the left FERNIE is in the normal range, however ABIs may be falsely elevated and unreliable secondary to calcified arterial andino. XR FOOT LEFT AP LATERAL AND OBLIQUE Final Result No radiographic evidence of recurrent osteomyelitis. - Note: Radiology results need to be interpreted within a comprehensive clinical context. If you have questions about the radiology report, please contact the office of the ordering clinician. XR CHEST AP PORTABLE Final Result No acute finding. - Note: Radiology results need to be interpreted within a comprehensive clinical context. If you have questions about the radiology report, please contact the office of the ordering clinician. EK EKG 12 LEAD ED Interpretation Atrial flutter with 2-1 AV block. Ventricular rate persistently at 134. Final Result [facility] Test Date: 2025-04-30 Pat Name: SKYLER BAUTISTA Department: DEPID Room: [facility] Gender: Female Directory Carrier: CHANTEL : 1940 Requested By: DONNIE PLUMMER Order Number: [id number] Reading MD: Isidro Kennedy Measurements Intervals Cecil Rate: 134 P: 203 GA: 145 QRS: -6 QRSD: 93 T: -78 QT: 333 QTc: 499 Interpretive Statements SINUS TACHYCARDIA NONSPECIFIC ST & T-WAVE ABNORMALITY Electronically Signed On 04-30-2025 22:14:02 EDT by Isidro Kennedy IR ABDOMINAL AORTOGRAM SERIALOGRAM (Results Pending) IR ULTRASOUND GUIDED VASCULAR ACCESS (Results Pending) Kaz Robertson MD * Coleman Moss COTA - 05/13/2025 9:07 AM EDT 05/13/25 0853 OT Subjective Note Type Chart Review;Treatment/Progress Patient Room/Unit 4420 OT Subjective Comments #1 Upon arrival, pt found resting in bed and agreeable to participate in OT. Others Present/Assisting MIKE Arevalo. Discharge Information This progress note will serve as the discharge summary if no further therapy is provided prior to the patient being discharged from the hospital. Admitting Diagnosis Patient is an 84 year old female admitted 04/30/25 with diabetic foot infection, PAD and wound dehiscence. Deciding on no intervention vs BKA vs AKA Past Med Hx Afib, PAD, HFpEF, L TMA 03/2025, R femur fx 03/2024, CABG 05/2024, emphysema, DANTE, Afib Diagnostic Testing MRI L foot: 1. Status post transmetatarsal amputation. There is mild marrow edema the metatarsal distal stump margins without evidence of osteomyelitis. 2. Dorsal soft tissue woundof the distal stump without an abscess. Clinical Course 05/12: Awaiting decision regarding AKA versus BKA versus no intervention. Recommended AKA based on vascular surgery guidelines and angiogram Precautions Therapy Precautions Yes Weight Bearing Status Left lower extremity;Weight bearing as tolerated Precaution Info Given Weight bearing;To use call light to request assistance with all mobility Cognition Orientation Impaired Disoriented to Time Arousal Impaired Arousal Impairment Delayed responses to stimuli Safety Awareness Impaired Safety Awareness Impairment Minimal Impairments: Needs up to 25% input/direction from therapist in order to identify safety issues and maintain safety. Affect/Ability to cope Impaired Affect/Ability to cope impairment Distracted;Anxious Command Following Impaired Command following impairment Minimal Impairments: Needs up to 25% input/direction from therapist inorder to follow single step commands. Memory Impaired Memory impairment Decreased recall of recent events;Poor short term memory (forgetful, frequent repetition of questions during session.) Communication Impaired Vision reports poor vision Additional comments Required redirection back to task, mild perseveration on anxiety regarding insurance. Pain Screening PT/OT Patient Currently in Pain Yes Pain Location Foot Pain Orientation Left Pain Intervention(s) Repositioned;Ambulation/Increased activity;Distraction Additional Comments L foot and L shoulder. Moaning thru out session d/t pain Observation Presentation Patient resting in bed Posture Laying on R side Observation Telemetry;Bed alarm Bed Mobility Supine to Sit Minimal assistance;With cues;With bed rails Additional Comments Cues and encouragement to complete sup<sit. Pt with 1 major LOB while seatedat EOB requiring Mod A. Otherwise required CGA-Min A. Transfers Sit to Stand Minimal assistance;With 2 people;With verbal cues Stand to Sit Minimal assistance;With 2 people;With verbal cues Bed to/from chair Minimal assistance;With 2 people;With verbal cues;Walker Additional Comments Pt declined 2ww from chair<BSC and instead utilized linking arms with therapists. After using BSC, pt utilized 2ww and step pivoted to chair with cues and Min x2. Functional Transfers Toilet Transfers Minimal assistance;With 2 people Additional Comments BSC. Cues for safe technique Gait Gait Minimal assistance;With 2 people assist;With verbal cues Assistive Device 2 Wheel walker Additional Comments Pt took small steps from BSC to chair with cues for technique and Min x2 for balance. [facility] for walker management. Balance Sitting Balance 2+/5 supports self with 1 UE Standing Balance 1/5 performs 25-50% (moderate assistance) PT/OT Mobility Documentation PT/OT Mobility Score 5 ADL Interventions Where Assessed Edge of bed;Sitting on toilet/bedside commode Grooming Assistance Hair care;Washing hands;Washing face;Stand by;Set up;With verbal cues (AAROM to LUE to apply deodorant.) UE Bathing Assistance Set up;With verbal cues;Stand by;Chest;LUE;RUE LE Bathing Assistance Minimal;Set up;With verbal cues;Buttock;Ana area (In standing with Min x2 for balance) UE Dressing Assistance Set up;With verbal cues;Minimal;Thread RUE;Thread LUE;Pull around back;Fasteners (difficulty d/t L shoulder pain) LE Dressing Assistance Set up;With verbal cues;Minimal;Don/doff R sock (Min A for sitting balance at EOB to don sock; Min A for threading LLE into underwear and Min A forstanding balance when pulling up over hips) Toileting Setup;With verbal cues;Minimal;Steadying;Supervision/Safety;Increased time to complete;Anterior ana care;Posterior ana care;Clothing management (Max A for clothing management on TF to BSC, but pt able to don up over hips after voiding with Silvestre for balance) Additional Comments Pt attempting to don deodorant with cap on despite cues- required A to take capoff and continue with task. Interventions Balance Training Dynamic standing/sitting balance, ADL Transfers, fxl mobility, fxl reaching Fine Motor Training Min A for use of tools for ADLs Equipment Training 2ww Transfer Training bed<bsc<chair Functional Status Score (FSS-ICU) Is the patient currently in ICU? No AM PAC: How much help from another person does the patient currently need... putting on and taking off regular lower body clothing? 3 bathing (including washing, rinsing, drying)? 2 toileting, which includes using toilet, bedpan or urinal? 3 putting on and taking off regular upper body clothing? 3 taking care of personal grooming such as brushing teeth? 3 eating meals? 3 AM PAC DAILY ACTIVITY SCORING Daily Activity Raw Score 17 AM PAC Daily Activity CMS 0-100% Functional Percentage 50.11 AM PAC Daily Activity CMS G Code Modifier CK Education Education To use call light to request assistance with all mobility;Role of Therapy;Patient/Family Education;Safety with mobility;Cues for proper technique;Discharge planning;Up with assistance only;Safe and proper posture/positioning;Safe and proper technique with transfers;Educated on benefits ofmobility, upright positioning, and getting out of bed;Energy conservation;Pursed lip breathing;Elevation of extremity Patient Safety Patient left in chair with needs in reach;Chair/personal alarm activated Assessment Assessment Decreased ADL status;Decreased Safe judgement during ADL;Decreased endurance;Decreased self-care transfers;Decreased high-level ADLs;Decreased fine motor control;Decreased cognition Prognosis Good;With continued OT s/p acute discharge Rationale for Skilled Therapy Fall Risk;Balance Deficits;Not safe with independent transfers;Not safe ambulating independently;Needs verbal/tactile cues for ADL's;Requires physical assistance with ADLs;Needs intensive therapy;Requires multi-disciplinary team;Able to make measurable improvements;Decreased endurance and tolerance to activity Additional Comments Pt demo progress with TF and standing tolerance, however requires significant cues for fxl tasks and safety during mobility/TF. Pt would benefit from cont OT services to maximize safety and fxl independence. ADL Goals Pt Will Perform Upper Body Grooming Standing at sink;Contact guard;Not met Pt Will Perform Upper Body Bathing With setup;Not met Pt Will Perform Lower Body Bathing Minimal assistance;Partly met Pt Will Perform LE Dressing Minimal assistance;Partly met Functional Transfer Goals Pt Will Perform All Functional Transfers Contact guardance;Not met Plan Treatment Interventions ADL retraining;Functional transfer training;UE strengthening/ROM;Endurance training;Patient/Family training;Compensatory technique education;Co-treatment with Physical Therapy OT Frequency 2-5x/wk Recommendation OT Recommendation Moderate frequency, moderate intensity five days a week therapy recommended. Time In / Time Out [id number] IP OT Individual Treatment Minutes 42 * Isela John PTA - 05/13/2025 9:01 AM EDT 05/13/25 0808 PT Subjective Note Type Treatment/Progress Patient Room/Unit 4420 PT Subjective Comments #1 Pt willing to participate w/ encouragement. In pain and sleepy Others Present/Assisting PRICILLA Cee Discharge Information This progress note will serve as the discharge summary if no further therapy is provided prior to the patient being discharged from the hospital. Admitting Diagnosis Patient is an 84 year old female admitted 04/30/25 with diabetic foot infection, PAD and wound dehiscence. Deciding on no intervention vs BKA vs AKA Pain Screening Pain Intervention(s) Repositioned;Ambulation/Increased activity;Emotional support;Distraction Additional Comments L foot and L shoulder. Moaning thru out session d/t pain Cognition Orientation Impaired Disoriented to Time Arousal Impairment Lethargic Safety Awareness Impairment Minimal Impairments: Needs up to 25% input/direction from therapist in order to identify safety issues and maintain safety. Affect/Ability to cope impairment Distracted;Anxious Command following impairment Minimal Impairments: Needs up to 25% input/direction from therapist inorder to follow single step commands. Memory impairment Poor short term memory;Decreased recall of recent events Vision reports poor vision Additional comments Anxious d/t pain and worried about/perseverating on losing insurance coverage Precautions Weight Bearing Status Left lower extremity;Weight bearing as tolerated Precaution Info Given Weight bearing;To use call light to request assistance with all mobility Observation Presentation Patient resting in bed Observation Telemetry;Bed alarm Vitals SpO2 95% on RA Bed Mobility Supine to Sit Minimal assistance;Head of bed elevated;With bed rails;With cues Additional Comments Able to scoot hips to EOB w/ CGA. 1 major LOB to the R while SOSOB Transfers Sit to Stand Minimal assistance;With 2 people;With verbal cues;Walker Stand to Sit Minimal assistance;With 2 people;With verbal cues Stand Pivot Transfers Minimal assistance;With 2 people;With cues Additional Comments Pt declines sock to L foot stating she holds it off the ground. Also declined walker asking to link elbows w/ therapists. Stood to pivot to BSC, does have both feet shuffle/pivot.Sat on commode to void and came to partial stand for self pericare. Sat to rest. Agreeable to standto walker for stability while pulling brief up, min x2 for dyn standing bal w/ 1 UE support, then shuffle pivoted to chair Gait Gait Minimal assistance;With 2 people assist;With verbal cues Gait Distance (Feet) 1 Feet (x2) Assistive Device 2 people;2 Wheel walker Pattern Slow margarito;Shuffle;Flexed posture Weight Bearing Status Weight bearing as tolerated Additional Comments Shuffled steps to pivot to BSC w/ UEs linked w/ therapists. Shuffled steps to pivot to chair, cues for sequencing/technique and safety PT/OT Mobility Documentation PT/OT Mobility Score 5 AM PAC: How much help from another person does the patient currently need... turning from your back to your side while in a flat bed without using bedrails? 3 moving from lying on your back to sitting on the side of a flat bed without using bedrails? 3 moving to and from a bed to a chair? 2 standing up from a chair using your arms (e.g. wheelchair, or bedside chair)? 2 need to walk in hospital room? 1 climbing 3-5 steps with a railing? 1 AM PAC: BASIC MOBILITY SCORING AM PAC Moblity Raw Score 12 AM PAC Mobility CMS 0-100% Functional Percentage 61.94 AM PAC Mobility CMS G Code Modifier CL Balance Sitting Balance 2+/5 supports self with 1 UE Standing Balance 1/5 performs 25-50% (moderate assistance) Education Education To use call light to request assistance with all mobility;Patient/Family Education;Role of Therapy;Safety with mobility;Cues for proper technique;Discharge planning;Precautions;Safe and proper posture/positioning;Safe and proper technique with transfers;Safe and proper technique with gaitpattern;Energy conservation;Elevation of extremity;Educated on benefits of mobility, upright positioning, and getting out of bed Patient Safety Patient Safety Patient left in chair with needs in reach;Nursing notified of status;Chair/personal alarm activated Assessment Assessment Decreased gait;Decreased functional mobility;Decreased balance;Decreased activity tolerance ;Decreased safety judgement ;Decreased endurance;Decreased self-care transfers Prognosis Fair;With continued PT s/p acute discharge Progress Slow progress toward goals Rationale for Skilled Therapy Fall Risk;Balance Deficits;Not safe with independent transfers;Not safe ambulating independently;Not independent with home exercise program;Needs intensive therapy;Requires multi-disciplinary team;Able to make measurable improvements;Decreased endurance and tolerance to activity Additional Comments Pt is functioning below baseline and currently requiring assist x2 for functional TFs. Pt would benefit from cont therapy to incr strength, balance, and activity tolerance to maximize safety and independencen w/ functional mobility Goals Will Perform Supine To Sit Supervision;Not met Will Perform Sit to Supine With minimal assist;Not assessed Will Perform Sit to Stand With minimal assist;Partly met Will Transfer Bed/Chair With minimal assist;Partly met Will Ambulate With 2 wheel walker;1-10 feet;With moderate assist;Not met Time for Goal Achievement/Duration of Treatment 05/20 Plan Treatment/Interventions Continue with current plan of care PT Frequency 3-5x/week Recommendation PT Recommendation Moderate frequency, moderate intensity five days a week therapy recommended. Time In / Time Out [id number] + 5 min chart review IP PT Treatment Minutes 45 The total time spent caring for this patient included but was not limited to medical record review;hands-on treatment;communication and education with patient and/or family/caregiver;assessment of the patient's progress since the last session;clinical judgement necessary for treatment planning for next session;communication with nursing and/or care coordination/social work regarding patient status and discharge planning Updated PT note needed in next 24hrs? Request addressed by PT * Irena Mckeon RN - 05/12/2025 10:50 AM EDT Pt awakes easily but continues with drowsiness. Reports she is just so tired and wants to delay breakfast/medications. Pt is resting on right side with eyes closed. Bed is low, wheels locked and calllight within reach * Kaz Robertson MD - 05/12/2025 10:17 AM EDTAssociated Problem(s): Diabetic foot infection (HCC) Wound dehiscence over previous left TMA site. ESR, CRP normal. WBC wnl. Afebrile. No acute infection. - podiatry consulted - vascular consulted - MRI L foot 05/03 with mild marrow edema of metatarsal distal stump margins without evidence of osteomyelitis - Angiogram performed, minimal blood flow past the knee, recommend AKA -Patient currently refusing AKA, only BKA -Will discuss with family * Kaz Robertson MD - 05/12/2025 10:17 AM EDTAssociated Problem(s): S/P transmetatarsal amputation of foot, left (HCC) Wound dehiscence over previous left TMA site. ESR, CRP normal. WBC wnl. Afebrile. No acute infection. - podiatry consulted - vascular consulted - MRI L foot 05/03 with mild marrow edema of metatarsal distal stump margins without evidence of osteomyelitis - Angiogram performed, minimal blood flow past the knee, recommend AKA -Patient currently refusing AKA, only BKA -Will discuss with family * Kaz Robertson MD - 05/12/2025 10:17 AM EDTAssociated Problem(s): PAD (peripheral artery disease) History of angiogram 01/2025. - vascular consulted - arterial studies 05/02 with significant PAD - COMPLIANCE PARALEGAL stenosis Patent popliteal and TPT with severe stenosis Patent proximal QUALITY CONTROL ASSOCIATE but occluded distally without reconstitution Patent DAREN with multifocal severe stenosis, occlusion at the level of the ankle and no distal reconstitution Significant small vessel disease in L foot * Kaz Robertson MD - 05/12/2025 10:17 AM EDTAssociated Problem(s): Paroxysmal atrial fibrillation (HCC) Heart rate controlled. 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 - QUALITY CONTROL ASSOCIATE coreg - cardiac monitoring -Heart rate 83 * Kaz Robertson MD - 05/12/2025 10:17 AM EDTAssociated Problem(s): Type 2 diabetes mellitus, without long-term current use of insulin (HCC) Last A1c 4.8 in 03/2024. QUALITY CONTROL ASSOCIATE meds include none. - hold off on FSBS, correctional algorithm - rpt A1c 5.3 * Kaz Robertson MD - 05/12/2025 10:17 AM EDTAssociated Problem(s): Hypertension associated with diabetes (HCC) Well controlled. - QUALITY CONTROL ASSOCIATE coreg - monitor and adjust as needed -Blood pressure 122/57 * Kaz Robertson MD - 05/12/2025 10:17 AM EDTAssociated Problem(s): Acute on chronic heart failure with preserved ejection fraction (HCC) Echo 2023 normal EF. Euvolemic on exam - monitor I/O, daily weights - diuresis: QUALITY CONTROL ASSOCIATE lasix on hold - QUALITY CONTROL ASSOCIATE coreg * Kaz Robertson MD - 05/12/2025 10:17 AM EDTAssociated Problem(s): Stage 3a chronic kidney disease (HCC) Cre 1.05 at admit. Baseline approx 0.9-1.2. - caution with contrast - note plans for angiogram - monitor renal function closely - avoid hypotension, nephrotoxins as able * Kaz Robertson MD - 05/12/2025 10:17 AM EDTAssociated Problem(s): 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 History of CABG - continue lipitor, coreg, ranexa - cardiac monitoring * Kaz Robertson MD - 05/12/2025 10:17 AM EDTAssociated Problem(s): Wound dehiscence Continue to monitor * Kaz Robertson MD - 05/12/2025 10:17 AM EDTAssociated Problem(s): Anemia in other chronic diseases classified elsewhere Continue to monitor hemoglobin appears stable at the moment * Kaz Robertson MD - 05/12/2025 10:15 AM EDT Images from the original note were not included. Hospitalist Progress Note Assessment & Plan Diabetic foot infection (HCC) S/P transmetatarsal amputation of foot, left (HCC) Wound dehiscence over previous left TMA site. ESR, CRP normal. WBC wnl. Afebrile. No acute infection. - podiatry consulted - vascular consulted - MRI L foot 05/03 with mild marrow edema of metatarsal distal stump margins without evidence of osteomyelitis - Angiogram performed, minimal blood flow past the knee, recommend AKA -Patient currently refusing AKA, only BKA -Will discuss with family PAD (peripheral artery disease) History of angiogram 01/2025. - vascular consulted - arterial studies 05/02 with significant PAD - COMPLIANCE PARALEGAL stenosis Patent popliteal and TPT with severe stenosis Patent proximal QUALITY CONTROL ASSOCIATE but occluded distally without reconstitution Patent DAREN with multifocal severe stenosis, occlusion at the level of the ankle and no distal reconstitution Significant small vessel disease in L foot Paroxysmal atrial fibrillation ([facility]) Heart rate controlled. 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 - QUALITY CONTROL ASSOCIATE coreg - cardiac monitoring -Heart rate 83 Type 2 diabetes mellitus, without long-term current use of insulin ([facility]) Last A1c 4.8 in 03/2024. QUALITY CONTROL ASSOCIATE meds include none. - hold off on FSBS, correctional algorithm - rpt A1c 5.3 Hypertension associated with diabetes ([facility]) Well controlled. - QUALITY CONTROL ASSOCIATE coreg - monitor and adjust as needed -Blood pressure 122/57 Chronic heart failure with preserved ejection fraction ([facility]) Echo 2023 normal EF. Euvolemic on exam - monitor I/O, daily weights - diuresis: QUALITY CONTROL ASSOCIATE lasix on hold - QUALITY CONTROL ASSOCIATE coreg Stage 3a chronic kidney disease (HCC) Cre 1.05 at admit. Baseline approx 0.9-1.2. - caution with contrast - note plans for angiogram - monitor renal function closely - avoid hypotension, nephrotoxins as able 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 History of CABG - continue lipitor, coreg, ranexa - cardiac monitoring Wound dehiscence Continue to monitor Anemia in other chronic diseases classified elsewhere Continue to monitor hemoglobin appears stable at the moment Diet: Regular Diet Code Status: Full Code Rationale for Skilled Therapy: Fall Risk; Balance Deficits; Not safe with independent transfers; Not safe ambulating independently; Decreased endurance and tolerance to activity (05/09/2025 2:45 PM) PT Recommendation: Moderate frequency, moderate intensity five days a week therapy recommended. (05/09/2025 2:45 PM) OT Recommendation: Moderate frequency, moderate intensity five days a week therapy recommended. (05/08/2025 10:00 AM) Handoff Completed: No Disposition Perspective - Medically ready for discharge: No Anticipated ready for discharge timeframe?: ? Ready for discharge when / if?: Decision made regarding amputation Estimated Date of Discharge: 05/10/2025 Date of Admission: 04/30/2025 Chief Complaint: Diabetic foot infection Subjective: Patient seen and examined. Awaiting decision regarding AKA versus BKA versus no intervention. Patient stated yesterday she wants to live as long as possible and not be in the hospital. Recommended AKA based on vascular surgery guidelines and angiogram Discussed with specialist care team Medications: Reviewed Infusion Medications Scheduled Medications ALPRAZolam 0.5 mg Oral Nightly atorvastatin 40 mg Oral Nightly carvediloL 12.5 mg Oral BID dorzolamide-timoloL 1 Drop Ophthalmic BID gabapentin 300 mg Oral Nightly GLUCERNA Therapeutic 1 'box' Oral BID with Meals CRISTINE powder 1 Packet Oral BID latanoprost 1 Drop Ophthalmic Nightly pantoprazole 40 mg Oral Daily ranolazine 1,000 mg Oral Daily PRN Meds: acetaminophen, acetaminophen, dextrose, glucagon AND sterile water, morphine OR [DISCONTINUED] morphine, oxyCODONE Intake/Output Summary (Last 24 hours) at 05/12/2025 1015 Last data filed at 05/12/2025 0544 Gross per 24 hour Intake 440 ml Output -- Net 440 ml Physical Exam Performed: BP 122/57 (BP Location: Right arm) Pulse 83 Temp 97.6 ??F (36.4 ??C) (Oral) Resp 14 Ht 5' 2 (1.575 m) Wt 120 lb (54.4 kg) SpO2 97% BMI 21.95 kg/m?? Physical Exam Vitals and nursing note reviewed. HENT: Head: Normocephalic. Cardiovascular: Rate and Rhythm: Normal rate. Pulmonary: Effort: Pulmonary effort is normal. I personally reviewed and interpreted daily labs not applicable Labs: No results for input(s): WBC , HGB , HCT , PLT in the last 72 hours. No results for input(s): NA , K , CL , CO2 , BUN , CREATININE , CALCIUM , PHOS in the last72 hours. Invalid input(s): MAGNES No results for input(s): AST , ALT , BILIDIR , BILITOT , ALKPHOS in the last 72 hours. No results for input(s): INR in the last 72 hours. Urinalysis: No results found for: WBCUA , BACTERIA , RBCUA , BLOODU , SPECGRAV , GLUCOSEU , KETONESU I personally reviewed and interpreted imaging not applicable Radiology: MRI FOOT LEFT WO CONTRAST Final Result 1. Status post transmetatarsal amputation. There is mild marrow edema the metatarsal distal stump margins without evidence of osteomyelitis. 2. Dorsal soft tissue wound of the distal stump without an abscess. VA US LOWER EXTREMITY ARTERIAL DUPLEX COMPLETE Final Result Conclusions * Triphasic Doppler flow pattern is noted in the right and left common femoral artery. * 20-49% stenosis right common femoral artery. * 20-49% stenosis proximal profunda artery. * 50-99% stenosis right proximal and mid SFA. * 50-99% stenosis right proximal anterior tibial artery. 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 * 50-99% stenosis left proximal/mid SFA. * 20-49% stenosis left distal SFA. * Occlusion left posterior tibial artery. * The great toe PPG waveform is absent. * There is a left TMA. * The right anterior tibial artery is non-compressible. * RABI: 0.50. * LABI: 1.35. * The right FERNIE is in the severe claudication range and the left FERNIE is in the normal range, however ABIs may be falsely elevated and unreliable secondary to calcified arterial andino. XR FOOT LEFT AP LATERAL AND OBLIQUE Final Result No radiographic evidence of recurrent osteomyelitis. - Note: Radiology results need to be interpreted within a comprehensive clinical context. If you have questions about the radiology report, please contact the office of the ordering clinician. XR CHEST AP PORTABLE Final Result No acute finding. - Note: Radiology results need to be interpreted within a comprehensive clinical context. If you have questions about the radiology report, please contact the office of the ordering clinician. EK EKG 12 LEAD ED Interpretation Atrial flutter with 2-1 AV block. Ventricular rate persistently at 134. Final Result [facility] Test Date: 2025-04-30 Pat Name: SKYLER BAUTISTA Department: DEPID Room: 3326 Gender: Female Directory Carrier: CHANTEL : 1940 Requested By: DONNIE PLUMMER Order Number: [id number] Reading MD: Isidro Kennedy Measurements Intervals [place] Rate: 134 P: 203 GA: 145 QRS: -6 QRSD: 93 T: -78 QT: 333 QTc: 499 Interpretive Statements SINUS TACHYCARDIA NONSPECIFIC ST & T-WAVE ABNORMALITY Electronically Signed On 04-30-2025 22:14:02 EDT by Isidro Kennedy IR ABDOMINAL AORTOGRAM SERIALOGRAM (Results Pending) IR ULTRASOUND GUIDED VASCULAR ACCESS (Results Pending) Kaz Robertson MD * Delia Park - 05/11/2025 6:58 PM EDT Images from the original note were not included. 05/11/25 1800 Reason for Visit Date of visit 05/11/25 Visited With Patient and family/visitors Visited By Hand Stemmer Reason for Visit Spiritual, emotional or social support Patient Assessment Patient Appears Anxious;Expressed discomfort;Fearful;Grateful/Appreciative;Pleasant;Sad;Tearful 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 Pentecostal Patient Restorationist Upon Assessment Pentecostal Spiritual Strengths and Coping Resources Meaning, ez, support in yazidism practices;Accepts help from others;Acceptance of changes or limitations in health;Resilience or adaptability;Sense of security from belief system;Spends time in prayer/spiritual practices;Support system Spiritual and Emotional Concerns Appears anxious;Fear;Fears being a burden to loved ones;Sadness;Processing decrease in mobility and independence Patient Spiritual Wellbeing Low Acuity - Spiritual Discomfort Family Assessment Spiritual Strengths and Coping Resources Demonstrates positive self-esteem;Determination;Hopefulness;Meaning, ez, support in yazidism practices;Sense of belonging Spiritual and Emotional Concerns Sadness Interventions with Patient Relationship Building Interventions Cultivated a relationship of care and support;Listened empathetically;Provided family support Samaritan Interventions Prayer with patient or family Exploration Interventions Discussed illness/injury and its impact;Explored image of God in relationship to situation;Explored sources of strength and hope;Provided caring and supportive presence;Provided safe space to process emotions or concerns Empowerment Interventions Encouraged assertiveness;Encouraged patient autonomy;Encouraged self-care Interventions with Family Relationship Building Interventions Cultivated a relationship of care and support;Listened empathetically;Provided family support Samaritan Interventions Prayer with family Exploration Interventions Provided caring and supportive presence;Provided safe space to process emotions or concerns Empowerment Interventions Affirmed individual's own spiritual journey;Affirmed family's experience Outcomes Expressed Outcomes Expressed feeling supported;Expressed comfort/peace;Appreciative of prayer/ritual;Appreciative of visit;Able to discuss emotions Care Plan Plan for Follow-Up Hand Stemmer(s) remains available as needed Add to Follow Up List Yes Rev. Dr. Delia Park M.Div, D.Min Hand Stemmer, Pastoral and Spiritual Care For non-urgent requests, please place a Pastoral Care consult in [facility]. For all urgent matters, please send an urgent [facility] Secure Chat to the Pastoral Care group at your location. Between 11pm and 7am, please use On-Call Finder to send an [facility] Secure Chat to the on-call counter tacker. Pastoral Care office phone numbers: EDG/COV/GRT [phone], FLORINA [phone], FTT [phone], DBN [phone] * Kaz Robertson MD - 05/11/2025 11:59 AM EDTAssociated Problem(s): Diabetic foot infection (HCC) Wound dehiscence over previous left TMA site. ESR, CRP normal. WBC wnl. Afebrile. No acute infection. - podiatry consulted - vascular consulted - MRI L foot 05/03 with mild marrow edema of metatarsal distal stump margins without evidence of osteomyelitis - Angiogram performed, minimal blood flow past the knee, recommend AKA -Patient currently refusing AKA, only BKA -Will discuss with family * Kaz Robertson MD - 05/11/2025 11:59 AM EDTAssociated Problem(s): S/P transmetatarsal amputation of foot, left (HCC) Wound dehiscence over previous left TMA site. ESR, CRP normal. WBC wnl. Afebrile. No acute infection. - podiatry consulted - vascular consulted - MRI L foot 05/03 with mild marrow edema of metatarsal distal stump margins without evidence of osteomyelitis - Angiogram performed, minimal blood flow past the knee, recommend AKA -Patient currently refusing AKA, only BKA -Will discuss with family * Kaz Robertson MD - 05/11/2025 11:59 AM EDTAssociated Problem(s): PAD (peripheral artery disease) History of angiogram 01/2025. - vascular consulted - arterial studies 05/02 with significant PAD - COMPLIANCE PARALEGAL stenosis Patent popliteal and TPT with severe stenosis Patent proximal QUALITY CONTROL ASSOCIATE but occluded distally without reconstitution Patent DAREN with multifocal severe stenosis, occlusion at the level of the ankle and no distal reconstitution Significant small vessel disease in L foot * Kaz Robertson MD - 05/11/2025 11:59 AM EDTAssociated Problem(s): Paroxysmal atrial fibrillation (HCC) Heart rate controlled. 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 - QUALITY CONTROL ASSOCIATE coreg - cardiac monitoring -Heart rate 98 * Miryam Guzman, COIN COLLECTOR - 05/11/2025 10:04 AM EDT Images from the original note were not included. Patient Name:Skyler Bautista : 1940 Admitting Diagnosis: Diabetic foot infection (HCC) INTERVAL HISTORY Patient seen and examined. Resting in bed this AM. Son at bedside. MEDICAL HISTORY Scheduled Medications: ALPRAZolam 0.5 mg Oral Nightly atorvastatin 40 mg Oral Nightly carvediloL 12.5 mg Oral BID dorzolamide-timoloL 1 Drop Ophthalmic BID gabapentin 300 mg Oral Nightly GLUCERNA Therapeutic 1 'box' Oral BID with Meals CRISTINE powder 1 Packet Oral BID latanoprost 1 Drop Ophthalmic Nightly pantoprazole 40 mg Oral Daily ranolazine 1,000 mg Oral Daily Allergy: Allergies Allergen Reactions Lidocaine Rash Last Recorded Vital Signs: Temp: 98.3 ??F (36.8 ??C) Pulse: 93 BP: 115/48 Resp: 18 SpO2: 92 % O2 Flow Rate (L/min): 2 lpm Intake/Output Summary (Last 24 hours) at 05/11/2025 1005 Last data filed at 05/10/2025 1352 Gross per 24 hour Intake 500 ml Output 10 ml Net 490 ml LABS AND RADIOLOGY Pertinent Labs: CBC: Recent Labs 05/09/25 0748 WBC 3.9 HGB 7.6* HCT 22.9* MCV 113.9* PLT 62* BMP:No results for input(s): NA , K , CL , CO2 , BUN , LABALBU , CREATININE , CALCIUM , GFRAA , LABGLOM , GLUCOSE , GLU in the last 72 hours. Coagulation: No results for input(s): APTT , PROTIME , INR in the last 72 hours. Imaging:No results found. PHYSICAL EXAMINATION Physical Exam: General: No acute distress. Resting in bed. Head: NC/AT. Resp: Effort normal. Abdomen: soft, non-tender. Skin: warm, well perfused, pale Vascular: R groin access site is stable. No bleeding or hematoma. L TMA with necrotic suture line. Psych: Mood appropriate. MEDICAL DECISION MAKING Active Hospital Problems Diagnosis *Diabetic foot infection (HCC) Wound dehiscence S/P transmetatarsal amputation of foot, left (HCC) Stage 3a chronic kidney disease (HCC) Anemia in other chronic diseases classified elsewhere PAD (peripheral artery disease) Chronic heart failure with preserved ejection fraction (HCC) Paroxysmal atrial fibrillation (HCC) 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 Type 2 diabetes mellitus, without long-term current use of insulin (HCC) Hypertension associated with diabetes (HCC) Assessment: S/P Aortogram, LLE angio, RLE angio 05/10 PAD with failing left TMA. Hx L frontotemporal hemorrhagic contusion, bilateral SAH and SDH Hx frequent falls Paroxysmal atrial fibrillation Chronic CHF CAD Diabetes mellitus Hypertension CKD Plan: -R groin access site is stable. No bleeding or hematoma. -Further discussion with patient and her son at bedside this AM. She reports she would be agreeableto a BKA but refuses AKA at this time. She also reports she would like more time to decide and discuss with her family. -Vascular will be available if patient chooses to pursue a more proximal amputation Signed: Miryam Guzman APRN Vascular Surgery 05/11/2025 10:05 AM Cosigned by Wood Collins MD at 05/11/2025 2:22 PM EDT * Kaz Robertson MD - 05/11/2025 7:12 AM EDTAssociated Problem(s): Type 2 diabetes mellitus, without long-term current use of insulin ([facility]) Last A1c 4.8 in 03/2024. QUALITY CONTROL ASSOCIATE meds include none. - hold off on FSBS, correctional algorithm - rpt A1c 5.3 * Kaz Robertson MD - 05/11/2025 7:12 AM EDTAssociated Problem(s): Hypertension associated with diabetes ([facility]) Well controlled. - QUALITY CONTROL ASSOCIATE coreg - monitor and adjust as needed -Blood pressure 116/76 * Kaz Robertson MD - 05/11/2025 7:12 AM EDTAssociated Problem(s): Acute on chronic heart failure with preserved ejection fraction (HCC) Echo 2023 normal EF. Euvolemic on exam - monitor I/O, daily weights - diuresis: QUALITY CONTROL ASSOCIATE lasix on hold - QUALITY CONTROL ASSOCIATE coreg * Kaz Robertson MD - 05/11/2025 7:12 AM EDTAssociated Problem(s): Stage 3a chronic kidney disease (HCC) Cre 1.05 at admit. Baseline approx 0.9-1.2. - caution with contrast - note plans for angiogram - monitor renal function closely - avoid hypotension, nephrotoxins as able * Kaz Robertson MD - 05/11/2025 7:12 AM EDTAssociated Problem(s): 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 History of CABG - continue lipitor, coreg, ranexa - cardiac monitoring * Kaz Robertson MD - 05/11/2025 7:12 AM EDTAssociated Problem(s): Wound dehiscence Continue to monitor * Kaz Robertson MD - 05/11/2025 7:12 AM EDTAssociated Problem(s): Anemia in other chronic diseases classified elsewhere Continue to monitor hemoglobin appears stable at the moment * RobertsonKaz MD - 05/11/2025 7:12 AM EDT Images from the original note were not included. Hospitalist Progress Note Assessment & Plan Diabetic foot infection (HCC) S/P transmetatarsal amputation of foot, left (HCC) Wound dehiscence over previous left TMA site. ESR, CRP normal. WBC wnl. Afebrile. No acute infection. - podiatry consulted - vascular consulted - MRI L foot 05/03 with mild marrow edema of metatarsal distal stump margins without evidence of osteomyelitis - Angiogram performed, minimal blood flow past the knee, recommend AKA -Patient currently refusing AKA, only BKA -Will discuss with family PAD (peripheral artery disease) History of angiogram 01/2025. - vascular consulted - arterial studies 05/02 with significant PAD - COMPLIANCE PARALEGAL stenosis Patent popliteal and TPT with severe stenosis Patent proximal QUALITY CONTROL ASSOCIATE but occluded distally without reconstitution Patent DAREN with multifocal severe stenosis, occlusion at the level of the ankle and no distal reconstitution Significant small vessel disease in L foot Paroxysmal atrial fibrillation (HCC) Heart rate controlled. 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 - QUALITY CONTROL ASSOCIATE coreg - cardiac monitoring -Heart rate 98 Type 2 diabetes mellitus, without long-term current use of insulin ([facility]) Last A1c 4.8 in 03/2024. QUALITY CONTROL ASSOCIATE meds include none. - hold off on FSBS, correctional algorithm - rpt A1c 5.3 Hypertension associated with diabetes ([facility]) Well controlled. - QUALITY CONTROL ASSOCIATE coreg - monitor and adjust as needed -Blood pressure 116/76 Chronic heart failure with preserved ejection fraction ([facility]) Echo 2023 normal EF. Euvolemic on exam - monitor I/O, daily weights - diuresis: QUALITY CONTROL ASSOCIATE lasix on hold - QUALITY CONTROL ASSOCIATE coreg Stage 3a chronic kidney disease ([facility]) Cre 1.05 at admit. Baseline approx 0.9-1.2. - caution with contrast - note plans for angiogram - monitor renal function closely - avoid hypotension, nephrotoxins as able 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 History of CABG - continue lipitor, coreg, ranexa - cardiac monitoring Wound dehiscence Continue to monitor Anemia in other chronic diseases classified elsewhere Continue to monitor hemoglobin appears stable at the moment Diet: Regular Diet Code Status: Full Code Rationale for Skilled Therapy: Fall Risk; Balance Deficits; Not safe with independent transfers; Not safe ambulating independently; Decreased endurance and tolerance to activity (05/09/2025 2:45 PM) PT Recommendation: Moderate frequency, moderate intensity five days a week therapy recommended. (05/09/2025 2:45 PM) OT Recommendation: Moderate frequency, moderate intensity five days a week therapy recommended. (05/08/2025 10:00 AM) Handoff Completed: No Disposition Perspective - Medically ready for discharge: No Anticipated ready for discharge timeframe?: 3 to 5 days Ready for discharge when / if?: Family decides on surgical intervention, performed Estimated Date of Discharge: 05/10/2025 Date of Admission: 04/30/2025 Chief Complaint: Lower extremity pain Subjective: Patient seen and examined. Patient son at bedside. Discussed surgical options with patient and she is unsure what she would like to proceed with. Discussed the options of a BKA or an AKA.Also informed her that an AKA is likely the only surgery that would be definitive in nature due to poor blood flow below the knee Discussed with specialist care team Medications: Reviewed Infusion Medications Scheduled Medications ALPRAZolam 0.5 mg Oral Nightly atorvastatin 40 mg Oral Nightly carvediloL 12.5 mg Oral BID dorzolamide-timoloL 1 Drop Ophthalmic BID gabapentin 300 mg Oral Nightly GLUCERNA Therapeutic 1 'box' Oral BID with Meals CRISTINE powder 1 Packet Oral BID latanoprost 1 Drop Ophthalmic Nightly pantoprazole 40 mg Oral Daily ranolazine 1,000 mg Oral Daily PRN Meds: acetaminophen, acetaminophen, dextrose, glucagon AND sterile water, morphine OR [DISCONTINUED] morphine, oxyCODONE Intake/Output Summary (Last 24 hours) at 05/11/2025 1159 Last data filed at 05/10/2025 1352 Gross per 24 hour Intake 500 ml Output 10 ml Net 490 ml Physical Exam Performed: BP 109/44 (BP Location: Right arm, Patient Position: Semi Fowlers) Pulse 98 Temp 97.5 ??F (36.4??C) (Oral) Resp 18 Ht 5' 2 (1.575 m) Wt 120 lb 11.2 oz (54.7 kg) SpO2 98% BMI 22.08 kg/m?? Physical Exam Vitals and nursing note reviewed. HENT: Head: Normocephalic. Nose: Nose normal. Eyes: Pupils: Pupils are equal, round, and reactive to light. Cardiovascular: Rate and Rhythm: Normal rate. Pulmonary: Effort: Pulmonary effort is normal. Abdominal: Palpations: Abdomen is soft. Neurological: Mental Status: She is alert. I personally reviewed and interpreted daily labs not applicable Labs: Recent Labs 05/09/25 0748 WBC 3.9 HGB 7.6* HCT 22.9* PLT 62* No results for input(s): NA , K , CL , CO2 , BUN , CREATININE , CALCIUM , PHOS in the last72 hours. Invalid input(s): MAGNES No results for input(s): AST , ALT , BILIDIR , BILITOT , ALKPHOS in the last 72 hours. No results for input(s): INR in the last 72 hours. Urinalysis: No results found for: WBCUA , BACTERIA , RBCUA , BLOODU , SPECGRAV , GLUCOSEU , KETONESU I personally reviewed and interpreted imaging not applicable Radiology: MRI FOOT LEFT WO CONTRAST Final Result 1. Status post transmetatarsal amputation. There is mild marrow edema the metatarsal distal stump margins without evidence of osteomyelitis. 2. Dorsal soft tissue wound of the distal stump without an abscess. [facility] LOWER EXTREMITY ARTERIAL DUPLEX COMPLETE Final Result Conclusions * Triphasic Doppler flow pattern is noted in the right and left common femoral artery. * 20-49% stenosis right common femoral artery. * 20-49% stenosis proximal profunda artery. * 50-99% stenosis right proximal and mid SFA. * 50-99% stenosis right proximal anterior tibial artery. 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 * 50-99% stenosis left proximal/mid SFA. * 20-49% stenosis left distal SFA. * Occlusion left posterior tibial artery. * The great toe PPG waveform is absent. * There is a left TMA. * The right anterior tibial artery is non-compressible. * RABI: 0.50. * LABI: 1.35. * The right FERNIE is in the severe claudication range and the left FERNIE is in the normal range, however ABIs may be falsely elevated and unreliable secondary to calcified arterial andino. XR FOOT LEFT AP LATERAL AND OBLIQUE Final Result No radiographic evidence of recurrent osteomyelitis. - Note: Radiology results need to be interpreted within a comprehensive clinical context. If you have questions about the radiology report, please contact the office of the ordering clinician. XR CHEST AP PORTABLE Final Result No acute finding. - Note: Radiology results need to be interpreted within a comprehensive clinical context. If you have questions about the radiology report, please contact the office of the ordering clinician. EK EKG 12 LEAD ED Interpretation Atrial flutter with 2-1 AV block. Ventricular rate persistently at 134. Final Result [facility] Test Date: 2025-04-30 Pat Name: SKYLER BAUTISTA Department: DEPID Room: 332 Gender: Female Directory Carrier: CHANTEL : 1940 Requested By: DONNIE PLUMMER Order Number: [id number] Reading MD: Isidro Kennedy Measurements Intervals Cecil Rate: 134 P: 203 GA: 145 QRS: -6 QRSD: 93 T: -78 QT: 333 QTc: 499 Interpretive Statements SINUS TACHYCARDIA NONSPECIFIC ST & T-WAVE ABNORMALITY Electronically Signed On 04-30-2025 22:14:02 EDT by Isidro Kennedy IR ABDOMINAL AORTOGRAM SERIALOGRAM (Results Pending) IR ULTRASOUND GUIDED VASCULAR ACCESS (Results Pending) Kaz Robertson MD * Alyse Arteaga RN - 05/10/2025 4:35 PM EDT Patient arrived on unit and 4 Eyes Skin Assessment within 4 hours completed with Lisseth Earl Srinivasan Score: (!) 17 Devices Removed/ Reapplied for Skin Assessment No Wound Present of Arrival: Yes No - Yes Explain: Yes, Wound LDAs Wound Duration Incision/Wound Amputation Foot Left 10 days Incision/Wound Skin tear Hand Posterior;Right 10 days Incision/Wound MASD Coccyx Mid gluteal split 3 days Initiate prevention protocol Dietary Orders Ordered NPO: With Meds DIET EFFECTIVE MIDNIGHT Comments: INPATIENTS: Fluids such as black coffee, Gatorade, Powerade, water, and ice until 4 hoursprior to procedure. DO NOT GIVE angiotensin converting enzyme inhibitors (ACEs) or angiotensin receptor blockers (ARBs)on the DAY OF SURGERY 05/10/25 0722 Comments: No * Kaz Robertson MD - 05/10/2025 1:54 PM EDTAssociated Problem(s): Diabetic foot infection (HCC) Wound dehiscence over previous left TMA site. ESR, CRP normal. WBC wnl. Afebrile. No acute infection. - podiatry consulted - vascular consulted - MRI L foot 05/03 with mild marrow edema of metatarsal distal stump margins without evidence of osteomyelitis - Angiogram scheduled for Tuesday - pt declines proximal amputation (will continue to discuss), no plans for revision unless able to improve blood flow to foot - no abx at this time * Kaz Robertson MD - 05/10/2025 1:54 PM EDTAssociated Problem(s): S/P transmetatarsal amputation of foot, left (HCC) Wound dehiscence over previous left TMA site. ESR, CRP normal. WBC wnl. Afebrile. No acute infection. - podiatry consulted - vascular consulted - MRI L foot 05/03 with mild marrow edema of metatarsal distal stump margins without evidence of osteomyelitis - Angiogram scheduled for Tuesday - pt declines proximal amputation (will continue to discuss), no plans for revision unless able to improve blood flow to foot - no abx at this time * Kaz Robertson MD - 05/10/2025 1:54 PM EDTAssociated Problem(s): PAD (peripheral artery disease) History of angiogram 01/2025. - vascular consulted - arterial studies 05/02 with significant PAD - plans for angiogram under anesthesia this week, April 10, undergoing now - continue lipitor * Kaz Robertson MD - 05/10/2025 1:54 PM EDTAssociated Problem(s): Paroxysmal atrial fibrillation (HCC) Heart rate controlled. 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 - QUALITY CONTROL ASSOCIATE coreg - cardiac monitoring -Heart rate 83 * Kaz Robertson MD - 05/10/2025 1:54 PM EDTAssociated Problem(s): Type 2 diabetes mellitus, without long-term current use of insulin ([facility]) Last A1c 4.8 in 03/2024. QUALITY CONTROL ASSOCIATE meds include none. - hold off on FSBS, correctional algorithm - rpt A1c 5.3 * Kaz Robertson MD - 05/10/2025 1:54 PM EDTAssociated Problem(s): Hypertension associated with diabetes ([facility]) Well controlled. - QUALITY CONTROL ASSOCIATE coreg - monitor and adjust as needed -Blood pressure 116/76 * Kaz Robertson MD - 05/10/2025 1:54 PM EDTAssociated Problem(s): Acute on chronic heart failure with preserved ejection fraction (HCC) Echo 2023 normal EF. Euvolemic on exam - monitor I/O, daily weights - diuresis: QUALITY CONTROL ASSOCIATE lasix on hold - QUALITY CONTROL ASSOCIATE coreg * Kaz Robertson MD - 05/10/2025 1:54 PM EDTAssociated Problem(s): Stage 3a chronic kidney disease (HCC) Cre 1.05 at admit. Baseline approx 0.9-1.2. - caution with contrast - note plans for angiogram - monitor renal function closely - avoid hypotension, nephrotoxins as able * Kaz Robertson MD - 05/10/2025 1:54 PM EDTAssociated Problem(s): 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 History of CABG - continue lipitor, coreg, ranexa - cardiac monitoring * Kaz Robertson MD - 05/10/2025 1:54 PM EDTAssociated Problem(s): Wound dehiscence Continue to monitor * Kaz Robertson MD - 05/10/2025 1:54 PM EDTAssociated Problem(s): Anemia in other chronic diseases classified elsewhere Continue to monitor hemoglobin appears stable at the moment * Kaz Robertson MD - 05/10/2025 1:53 PM EDT Images from the original note were not included. Hospitalist Progress Note Assessment & Plan Diabetic foot infection (HCC) S/P transmetatarsal amputation of foot, left (HCC) Wound dehiscence over previous left TMA site. ESR, CRP normal. WBC wnl. Afebrile. No acute infection. - podiatry consulted - vascular consulted - MRI L foot 05/03 with mild marrow edema of metatarsal distal stump margins without evidence of osteomyelitis - Angiogram scheduled for Tuesday - pt declines proximal amputation (will continue to discuss), no plans for revision unless able to improve blood flow to foot - no abx at this time PAD (peripheral artery disease) History of angiogram 01/2025. - vascular consulted - arterial studies 05/02 with significant PAD - plans for angiogram under anesthesia this week, April 10, undergoing now - continue lipitor Paroxysmal atrial fibrillation (HCC) Heart rate controlled. 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 - QUALITY CONTROL ASSOCIATE coreg - cardiac monitoring -Heart rate 83 Type 2 diabetes mellitus, without long-term current use of insulin ([facility]) Last A1c 4.8 in 03/2024. QUALITY CONTROL ASSOCIATE meds include none. - hold off on FSBS, correctional algorithm - rpt A1c 5.3 Hypertension associated with diabetes (HCC) Well controlled. - QUALITY CONTROL ASSOCIATE coreg - monitor and adjust as needed -Blood pressure 116/76 Chronic heart failure with preserved ejection fraction (HCC) Echo 2023 normal EF. Euvolemic on exam - monitor I/O, daily weights - diuresis: QUALITY CONTROL ASSOCIATE lasix on hold - QUALITY CONTROL ASSOCIATE coreg Stage 3a chronic kidney disease (HCC) Cre 1.05 at admit. Baseline approx 0.9-1.2. - caution with contrast - note plans for angiogram - monitor renal function closely - avoid hypotension, nephrotoxins as able 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 History of CABG - continue lipitor, coreg, ranexa - cardiac monitoring Wound dehiscence Continue to monitor Anemia in other chronic diseases classified elsewhere Continue to monitor hemoglobin appears stable at the moment Diet: NPO: With Meds Code Status: Full Code Rationale for Skilled Therapy: Fall Risk; Balance Deficits; Not safe with independent transfers; Not safe ambulating independently; Decreased endurance and tolerance to activity (05/09/2025 2:45 PM) PT Recommendation: Moderate frequency, moderate intensity five days a week therapy recommended. (05/09/2025 2:45 PM) OT Recommendation: Moderate frequency, moderate intensity five days a week therapy recommended. (05/08/2025 10:00 AM) Handoff Completed: No Disposition Perspective - Medically ready for discharge: Yes Estimated Date of Discharge: 05/10/2025 Date of Admission: 04/30/2025 Chief Complaint: Leg pain Subjective: Patient getting angiogram today.Possible DC after if stable Discussed with specialist care team Medications: Reviewed Infusion Medications Scheduled Medications ALPRAZolam 0.5 mg Oral Nightly atorvastatin 40 mg Oral Nightly carvediloL 12.5 mg Oral BID dorzolamide-timoloL 1 Drop Ophthalmic BID gabapentin 300 mg Oral Nightly GLUCERNA Therapeutic 1 'box' Oral BID with Meals CRISTINE powder 1 Packet Oral BID latanoprost 1 Drop Ophthalmic Nightly pantoprazole 40 mg Oral Daily ranolazine 1,000 mg Oral Daily PRN Meds: acetaminophen, acetaminophen, dextrose, glucagon AND sterile water, morphine OR [DISCONTINUED] morphine, oxyCODONE Intake/Output Summary (Last 24 hours) at 05/10/2025 1353 Last data filed at 05/10/2025 1352 Gross per 24 hour Intake 1197 ml Output 10 ml Net 1187 ml Physical Exam Performed: BP 116/76 (BP Location: Left arm, Patient Position: Lying right side) Pulse 83 Temp 98.2 ??F (36.8 ??C) (Oral) Resp 16 Ht 5' 2 (1.575 m) Wt 120 lb 11.2 oz (54.7 kg) SpO2 96% BMI 22.08 kg/m?? Physical Exam Vitals and nursing note reviewed. Cardiovascular: Rate and Rhythm: Normal rate. Pulmonary: Effort: Pulmonary effort is normal. I personally reviewed and interpreted daily labs NA Labs: Recent Labs 05/08/25 0524 05/09/25 0748 WBC 3.9 3.9 HGB 7.4* 7.6* HCT 22.6* 22.9* PLT 60* 62* Recent Labs 05/08/25 0524 NA 137 K 4.2 CL 107 CO2 21* BUN 27* CREATININE 0.78 CALCIUM 8.6* No results for input(s): AST , ALT , BILIDIR , BILITOT , ALKPHOS in the last 72 hours. No results for input(s): INR in the last 72 hours. Urinalysis: No results found for: WBCUA , BACTERIA , RBCUA , BLOODU , SPECGRAV , GLUCOSEU , KETONESU I personally reviewed and interpreted imaging NA Radiology: MRI FOOT LEFT WO CONTRAST Final Result 1. Status post transmetatarsal amputation. There is mild marrow edema the metatarsal distal stump margins without evidence of osteomyelitis. 2. Dorsal soft tissue wound of the distal stump without an abscess. [facility] US LOWER EXTREMITY ARTERIAL DUPLEX COMPLETE Final Result Conclusions * Triphasic Doppler flow pattern is noted in the right and left common femoral artery. * 20-49% stenosis right common femoral artery. * 20-49% stenosis proximal profunda artery. * 50-99% stenosis right proximal and mid SFA. * 50-99% stenosis right proximal anterior tibial artery. 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 * 50-99% stenosis left proximal/mid SFA. * 20-49% stenosis left distal SFA. * Occlusion left posterior tibial artery. * The great toe PPG waveform is absent. * There is a left TMA. * The right anterior tibial artery is non-compressible. * RABI: 0.50. * LABI: 1.35. * The right FERNIE is in the severe claudication range and the left FERNIE is in the normal range, however ABIs may be falsely elevated and unreliable secondary to calcified arterial andino. XR FOOT LEFT AP LATERAL AND OBLIQUE Final Result No radiographic evidence of recurrent osteomyelitis. - Note: Radiology results need to be interpreted within a comprehensive clinical context. If you have questions about the radiology report, please contact the office of the ordering clinician. XR CHEST AP PORTABLE Final Result No acute finding. - Note: Radiology results need to be interpreted within a comprehensive clinical context. If you have questions about the radiology report, please contact the office of the ordering clinician. EK EKG 12 LEAD ED Interpretation Atrial flutter with 2-1 AV block. Ventricular rate persistently at 134. Final Result [facility] Test Date: 2025-04-30 Pat Name: SKYLER BAUTISTA Department: DEPID Room: [facility] Gender: Female Directory Carrier: CHANTEL : 1940 Requested By: DONNIE PLUMMER Order Number: [id number] Reading MD: Isidro Kennedy Measurements Intervals [place] Rate: 134 P: 203 GA: 145 QRS: -6 QRSD: 93 T: -78 QT: 333 QTc: 499 Interpretive Statements SINUS TACHYCARDIA NONSPECIFIC ST & T-WAVE ABNORMALITY Electronically Signed On 04-30-2025 22:14:02 EDT by Isidro Robertson MD * Rosario Izaguirre MSW - 05/10/2025 11:33 AM EDT 05/10/25 1031 Ongoing Discharge Planning Evaluation Completed by CC/SW Yes Repisodic List provided Yes, Provided information, demonstrated how to access quality and resource utilization data for post acute provider and offered assistance and [facility] Financial Disclosure completed Actual Discharge Plan 05/10/2025 NORA Update: Plan for pt to have angio today. Possible d/c after backto [facility]. Pt to transfer units after angio done. NORA spoke with pt at bedside. Pt still agreeable to d/c plan. Pt could not see post acute placement consent form to [facility], but asked that NORA also contact her sister Adriana (goes by Sarah), and update her. NORA called and updated Sarah. Post acute placement consent form completed with CC. Pt will need ambulance transport at time of d/c. Pharmacy updated in [employer]. SW following Final Note Post Acute Form Completed Yes * Cely Gottlieb RD,LD - 05/10/2025 10:49 AM EDT [facility] Nutrition Malnutrition Reassessment Evidence Supported Diagnosis: No malnutrition identified Nutrition Prescription: Kcals: 7940-7888 kcal (25-30 kcal/kg) Protein (g): 65-82 gm Protein needs based on: 1.2-1.5 gm/kg Fluid (ml): 1 ml/kcal or per MD Plan/Interventions: Meals and Snacks: NPO (for procedure) Medical Food Supplements: Cristine, Glucerna Therapeutic Medical Food/Supplement Freq: BID Nutrition-Related Medication Management: Protonix Nutrition Education: Supplements, Increased nutrients for wound healing Collaboration And Referral Of Nutrition Care: Collaboration with other providers Nutrition Discharge Instructions: Continue to eat foods high in protein. Continue to drink protein shakes 1-2x per day for additional protein. Skyler Bautista is a 84 y.o. female patient. Admit Diagnosis: Wound dehiscence [T81.30XA] Diabetic foot infection (HCC) [E11.628, L08.9] Subjective: Subjective Comment: F/u on pt's nutritional status. Pt visited. Reports she wants to get some sleep- has not been able to get much sleep during admission. Kept interview brief. Po intakes appear to have improved per flowsheets. Pt agrees. She reports good intakes of Glucerna and Cristine as well - confirmed per eNar. Encouragement given, reminded pt the importance of nutrition for healing and recovery. Will continue to monitor. Anthropometric Measurements: Height: 5' 2 (157.5 cm) Weight: 120 lb (54.4 kg) BMI (Calculated): 21.95 BMI Assessment: 18.5-24.9 Normal IBW +/- 10%: 110 lb (49.9 kg) % IBW: 109 Food/Nutrition Related History: Dietary Orders Ordered NPO: With Meds DIET EFFECTIVE MIDNIGHT Comments: INPATIENTS: Fluids such as black coffee, Gatorade, Powerade, water, and ice until 4 hoursprior to procedure. DO NOT GIVE angiotensin converting enzyme inhibitors (ACEs) or angiotensin receptor blockers (ARBs)on the DAY OF SURGERY 05/10/25 0722 GLUCERNA Therapeutic oral supplement 1 'box' Oral BID with Meals 1 'box' at 05/09/25 1833 CRISTINE powder oral supplement 1 Packet Oral BID 1 Packet at 05/09/251999 Food Insecurity Within the past 12 months, you worried that your food would run out before you got the money to buymore.: Never true Within the past 12 months, the food you bought just didn't last and you didn't have money to get more.: Never true % Avg Meals Consumed: 65 % (x5 meals) Tube Feeding?: No TPN?: No Level of Assistance: Independent Swallowing Difficulty: No Nutrition Focused Physical Findings: LDAs- Active NG/OG/NJ,Wound,Pressure Injury,or Drain Wound Duration Incision/Wound Amputation Foot Left 10 days Incision/Wound Skin tear Hand Posterior;Right 10 days Incision/Wound MASD Coccyx Mid gluteal split 3 days I/O last 3 completed shifts: In: 934 [P.O.:934] Out: - Edema:Right Lower Extremity Edema: +1, Non-pitting Left Lower Extremity Edema: +1, Non-pitting Abdomen: Abdominal/GI When was last BM? (Date): 05/09/25 Stool Assessment: Stool Occurrence: 1 Stool Appearance: Type 4 [place] Stool Chart Stool Color: Michael Stool Amount: (one extra small piece stool) Biochemical Data/Medical Tests: Pertinent Meds: Protonix Pertinent Labs: Gluc 116, H/H low, BUN 27, Ca 8.6 Clinical Course: Clinical Course: Pt admitted w/ L TMA dehiscence. Podiatry recommending BKA, pt refusing. Plans forvascular angiogram 05/10. * Jaqueline Ly, PT - 05/10/2025 10:27 AM EDT 05/10/25 1027 PT Subjective Note Type Follow Up Treatment Attempt Patient Room/Unit 3307 PT Subjective Comments #1 Patient is requesting PT returns a different day after surgery Therapy delay reason Patient declined;Patient/family request therapist return at later time * Jaqueline Ly, PT - 05/09/2025 2:52 PM EDT 05/09/25 1445 PT Subjective Note Type Treatment/Progress Patient Room/Unit 3307 PT Subjective Comments #1 Patient in agreement to therapy with encouragement Discharge Information This progress note will serve as the discharge summary if no further therapy is provided prior to the patient being discharged from the hospital. Admitting Diagnosis Patient is an 84 year old female admitted 04/30/25 with diabetic foot infection, PAD and wound dehiscence. Pain Screening PT/OT Patient Currently in Pain Yes Pain Rating Patient unable to rate pain Pain Location Foot Pain Orientation Left Pain Intervention(s) Repositioned Cognition Orientation Impaired Disoriented to Time Arousal Normal Safety Awareness Impaired Safety Awareness Impairment Minimal Impairments: Needs up to 25% input/direction from therapist in order to identify safety issues and maintain safety. Affect/Ability to cope Impaired Affect/Ability to cope impairment Distracted;Anxious Command Following Impaired Command following impairment Minimal Impairments: Needs up to 25% input/direction from therapist inorder to follow single step commands. Communication Impaired Vision reports poor vision Precautions Weight Bearing Status Weight bearing as tolerated Precaution Info Given To use call light to request assistance with all mobility Activity Tolerance Endurance Limits participation and activity Observation Presentation Patient resting in bed Observation Bed alarm Bed Mobility Supine to Sit Minimal assistance;With cues;Head of bed elevated;With bed rails Transfers Sit to Stand Moderate assistance;With verbal cues;Walker Stand to Sit Moderate assistance;With verbal cues;Walker Bed to/from chair Moderate assistance;With verbal cues;Walker Additional Comments Patient stood at walker x2 reps. She was unsteady and demonstrated posterior LOB. She pivoted to chair on second stand. Pt reported feeling very dizzy and lightheaded. BP 108/56. RN notified Gait Gait Not performed Functional Status Score (FSS-ICU) Is the patient currently in ICU? No PT/OT Mobility Documentation PT/OT Mobility Score 5 AM PAC: How much help from another person does the patient currently need... turning from your back to your side while in a flat bed without using bedrails? 3 moving from lying on your back to sitting on the side of a flat bed without using bedrails? 3 moving to and from a bed to a chair? 2 standing up from a chair using your arms (e.g. wheelchair, or bedside chair)? 2 need to walk in hospital room? 1 climbing 3-5 steps with a railing? 1 AM PAC: BASIC MOBILITY SCORING AM PAC Moblity Raw Score 12 AM PAC Mobility CMS 0-100% Functional Percentage 61.94 AM PAC Mobility CMS G Code Modifier CL Balance Sitting Balance 2+/5 supports self with 1 UE Standing Balance 1/5 performs 25-50% (moderate assistance) Education Education To use call light to request assistance with all mobility;Patient/Family Education;Safetywith mobility;Role of Therapy;Cues for proper technique;Up with assistance only;Safe and proper post ure/positioning;Safe and proper technique with transfers;Educated on benefits of mobility, upright positioning, and getting out of bed Patient Safety Patient Safety Patient left in chair with needs in reach;Chair/personal alarm activated;Nursing notified of status Assessment Assessment Decreased gait;Decreased functional mobility;Decreased balance;Decreased RightLower Extremity strength;Decreased Left Lower Extremity strength;Decreased activity tolerance ;Decreased safety judgement ;Decreased cognition;Decreased endurance Prognosis Fair;With continued PT s/p acute discharge Progress Slow progress toward goals Rationale for Skilled Therapy Fall Risk;Balance Deficits;Not safe with independent transfers;Not safe ambulating independently;Decreased endurance and tolerance to activity Additional Comments Patient continues to require assistance with all mobility and will benefit fromcontinued physical therapy services to maximize safety and functional outcome. Goals Will Perform Supine To Sit Supervision;New goal Will Perform Sit to Supine With minimal assist;Not assessed Will Perform Sit to Stand With minimal assist;Not met Will Transfer Bed/Chair New goal;With minimal assist Will Ambulate With 2 wheel walker;1-10 feet;With moderate assist;Not assessed Plan Treatment/Interventions Continue with current plan of care PT Frequency 3-5x/week Recommendation PT Recommendation Moderate frequency, moderate intensity five days a week therapy recommended. Time In / Time Out [id number] IP PT Treatment Minutes 24 The total time spent caring for this patient included but was not limited to medical record review;hands-on treatment;communication and education with patient and/or family/caregiver;assessment of the patient's progress since the last session;clinical judgement necessary for treatment planning for next session;communication with nursing and/or care coordination/social work regarding patient status and discharge planning * Kaz Robertson MD - 05/09/2025 10:25 AM EDTAssociated Problem(s): Paroxysmal atrial fibrillation (HCC) Heart rate controlled. 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 - QUALITY CONTROL ASSOCIATE coreg - cardiac monitoring -Heart rate 75 * Kaz Robertson MD - 05/09/2025 10:25 AM EDTAssociated Problem(s): Hypertension associated with diabetes (HCC) Well controlled. - QUALITY CONTROL ASSOCIATE coreg - monitor and adjust as needed -Blood pressure 128/66 * Jaqueline Ly, PT - 05/09/2025 9:14 AM EDT 05/09/25 0914 PT Subjective Note Type Follow Up Treatment Attempt Patient Room/Unit 3326 PT Subjective Comments #1 Per discussion with nurse, patient is very tired and wants a little time to sleep. PT to return later today Therapy delay reason Patient/family request therapist return at later time * Kaz Robertson MD - 05/09/2025 7:00 AM EDTAssociated Problem(s): Diabetic foot infection (HCC) Wound dehiscence over previous left TMA site. ESR, CRP normal. WBC wnl. Afebrile. No acute infection. - podiatry consulted - vascular consulted - MRI L foot 05/03 with mild marrow edema of metatarsal distal stump margins without evidence of osteomyelitis - Angiogram scheduled for Tuesday - pt declines proximal amputation (will continue to discuss), no plans for revision unless able to improve blood flow to foot - no abx at this time * Kaz Robertson MD - 05/09/2025 7:00 AM EDTAssociated Problem(s): S/P transmetatarsal amputation of foot, left (HCC) Wound dehiscence over previous left TMA site. ESR, CRP normal. WBC wnl. Afebrile. No acute infection. - podiatry consulted - vascular consulted - MRI L foot 05/03 with mild marrow edema of metatarsal distal stump margins without evidence of osteomyelitis - Angiogram scheduled for Tuesday - pt declines proximal amputation (will continue to discuss), no plans for revision unless able to improve blood flow to foot - no abx at this time * Kaz Robertson MD - 05/09/2025 7:00 AM EDTAssociated Problem(s): PAD (peripheral artery disease) History of angiogram 01/2025. - vascular consulted - arterial studies 05/02 with significant PAD - plans for angiogram under anesthesia this week, April 10 - continue lipitor * Kaz Robertson MD - 05/09/2025 7:00 AM EDTAssociated Problem(s): Type 2 diabetes mellitus, without long-term current use of insulin (HCC) Last A1c 4.8 in 03/2024. QUALITY CONTROL ASSOCIATE meds include none. - hold off on FSBS, correctional algorithm - rpt A1c 5.3 * Kaz Robertson MD - 05/09/2025 7:00 AM EDTAssociated Problem(s): Acute on chronic heart failure with preserved ejection fraction (HCC) Echo 2023 normal EF. Euvolemic on exam - monitor I/O, daily weights - diuresis: QUALITY CONTROL ASSOCIATE lasix on hold - QUALITY CONTROL ASSOCIATE coreg * Kaz Robertson MD - 05/09/2025 7:00 AM EDTAssociated Problem(s): Stage 3a chronic kidney disease (HCC) Cre 1.05 at admit. Baseline approx 0.9-1.2. - caution with contrast - note plans for angiogram - monitor renal function closely - avoid hypotension, nephrotoxins as able * Kaz Robertson MD - 05/09/2025 7:00 AM EDTAssociated Problem(s): 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 History of CABG - continue lipitor, coreg, ranexa - cardiac monitoring * Kaz Robertson MD - 05/09/2025 7:00 AM EDTAssociated Problem(s): Wound dehiscence Continue to monitor * Kaz Robertson MD - 05/09/2025 7:00 AM EDTAssociated Problem(s): Anemia in other chronic diseases classified elsewhere Continue to monitor hemoglobin appears stable at the moment * Kaz Robertson MD - 05/09/2025 7:00 AM EDT Images from the original note were not included. Hospitalist Progress Note Assessment & Plan Diabetic foot infection (HCC) S/P transmetatarsal amputation of foot, left (HCC) Wound dehiscence over previous left TMA site. ESR, CRP normal. WBC wnl. Afebrile. No acute infection. - podiatry consulted - vascular consulted - MRI L foot 05/03 with mild marrow edema of metatarsal distal stump margins without evidence of osteomyelitis - Angiogram scheduled for Tuesday - pt declines proximal amputation (will continue to discuss), no plans for revision unless able to improve blood flow to foot - no abx at this time PAD (peripheral artery disease) History of angiogram 01/2025. - vascular consulted - arterial studies 05/02 with significant PAD - plans for angiogram under anesthesia this week, April 10 - continue lipitor Paroxysmal atrial fibrillation (HCC) Heart rate controlled. 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 - QUALITY CONTROL ASSOCIATE coreg - cardiac monitoring -Heart rate 75 Type 2 diabetes mellitus, without long-term current use of insulin (HCC) Last A1c 4.8 in 03/2024. QUALITY CONTROL ASSOCIATE meds include none. - hold off on FSBS, correctional algorithm - rpt A1c 5.3 Hypertension associated with diabetes (HCC) Well controlled. - QUALITY CONTROL ASSOCIATE coreg - monitor and adjust as needed -Blood pressure 128/66 Chronic heart failure with preserved ejection fraction (HCC) Echo 2023 normal EF. Euvolemic on exam - monitor I/O, daily weights - diuresis: QUALITY CONTROL ASSOCIATE lasix on hold - QUALITY CONTROL ASSOCIATE coreg Stage 3a chronic kidney disease (HCC) Cre 1.05 at admit. Baseline approx 0.9-1.2. - caution with contrast - note plans for angiogram - monitor renal function closely - avoid hypotension, nephrotoxins as able 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 History of CABG - continue lipitor, coreg, ranexa - cardiac monitoring Wound dehiscence Continue to monitor Anemia in other chronic diseases classified elsewhere Continue to monitor hemoglobin appears stable at the moment Diet: Regular Diet NPO: With Meds Code Status: Full Code Rationale for Skilled Therapy: Fall Risk; Balance Deficits; Not safe with independent transfers; Not safe ambulating independently; Able to make measurable improvements; Decreased endurance and tolerance to activity (05/08/2025 10:05 AM) PT Recommendation: Moderate frequency, moderate intensity five days a week therapy recommended. (05/08/2025 10:05 AM) OT Recommendation: Moderate frequency, moderate intensity five days a week therapy recommended. (05/08/2025 10:00 AM) Handoff Completed: No Disposition Perspective - Medically ready for discharge: No Anticipated ready for discharge timeframe?: Marcel Ready for discharge when / if?: Post angio Estimated Date of Discharge: 05/10/2025 Date of Admission: 04/30/2025 Chief Complaint: Foot infection Subjective: Seen and examined. No acute issues. Await angiogram tomorrow. Discussed with specialist care team Medications: Reviewed Infusion Medications Scheduled Medications ALPRAZolam 0.5 mg Oral Nightly atorvastatin 40 mg Oral Nightly carvediloL 12.5 mg Oral BID dorzolamide-timoloL 1 Drop Ophthalmic BID gabapentin 300 mg Oral Nightly GLUCERNA Therapeutic 1 'box' Oral BID with Meals CRISTINE powder 1 Packet Oral BID latanoprost 1 Drop Ophthalmic Nightly pantoprazole 40 mg Oral Daily ranolazine 1,000 mg Oral Daily PRN Meds: acetaminophen, acetaminophen, dextrose, glucagon AND sterile water, morphine OR [DISCONTINUED] morphine, oxyCODONE Intake/Output Summary (Last 24 hours) at 05/09/2025 1024 Last data filed at 05/09/2025 0858 Gross per 24 hour Intake 387 ml Output -- Net 387 ml Physical Exam Performed: BP 128/66 (BP Location: Left arm, Patient Position: Semi Fowlers) Pulse 75 Temp 98 ??F (36.7 ??C) (Oral) Resp 18 Ht 5' 2 (1.575 m) Wt 120 lb 11.2 oz (54.7 kg) SpO2 100% BMI 22.08 kg/m?? Physical Exam Vitals and nursing note reviewed. HENT: Head: Normocephalic. Cardiovascular: Rate and Rhythm: Normal rate. Pulmonary: Effort: Pulmonary effort is normal. I personally reviewed and interpreted daily labs Hg stable Labs: Recent Labs 05/07/25 0733 05/08/25 0524 05/09/25 0748 WBC 6.8 3.9 3.9 HGB 8.8* 7.4* 7.6* HCT 26.5* 22.6* 22.9* PLT 68* 60* 62* Recent Labs 05/07/25 0733 05/08/25 0524 NA 135* 137 K 4.2 4.2 CL 104 107 CO2 20* 21* BUN 24* 27* CREATININE 0.85 0.78 CALCIUM 9.0 8.6* No results for input(s): AST , ALT , BILIDIR , BILITOT , ALKPHOS in the last 72 hours. No results for input(s): INR in the last 72 hours. Urinalysis: No results found for: WBCUA , BACTERIA , RBCUA , BLOODU , SPECGRAV , GLUCOSEU , KETONESU I personally reviewed and interpreted imaging NA Radiology: MRI FOOT LEFT WO CONTRAST Final Result 1. Status post transmetatarsal amputation. There is mild marrow edema the metatarsal distal stump margins without evidence of osteomyelitis. 2. Dorsal soft tissue wound of the distal stump without an abscess. VA US LOWER EXTREMITY ARTERIAL DUPLEX COMPLETE Final Result Conclusions * Triphasic Doppler flow pattern is noted in the right and left common femoral artery. * 20-49% stenosis right common femoral artery. * 20-49% stenosis proximal profunda artery. * 50-99% stenosis right proximal and mid SFA. * 50-99% stenosis right proximal anterior tibial artery. 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 * 50-99% stenosis left proximal/mid SFA. * 20-49% stenosis left distal SFA. * Occlusion left posterior tibial artery. * The great toe PPG waveform is absent. * There is a left TMA. * The right anterior tibial artery is non-compressible. * RABI: 0.50. * LABI: 1.35. * The right FERNIE is in the severe claudication range and the left FERNIE is in the normal range, however ABIs may be falsely elevated and unreliable secondary to calcified arterial andino. XR FOOT LEFT AP LATERAL AND OBLIQUE Final Result No radiographic evidence of recurrent osteomyelitis. - Note: Radiology results need to be interpreted within a comprehensive clinical context. If you have questions about the radiology report, please contact the office of the ordering clinician. XR CHEST AP PORTABLE Final Result No acute finding. - Note: Radiology results need to be interpreted within a comprehensive clinical context. If you have questions about the radiology report, please contact the office of the ordering clinician. EK EKG 12 LEAD ED Interpretation Atrial flutter with 2-1 AV block. Ventricular rate persistently at 134. Final Result [facility] Test Date: 2025-04-30 Pat Name: SKYLER BAUTISTA Department: [facility] Room: [facility] Gender: Female Directory Carrier: CHANTEL : 1940 Requested By: DONNIE PLUMMER Order Number: [id number] Reading MD: Isidro Kennedy Measurements Intervals Cecil Rate: 134 P: 203 GA: 145 QRS: -6 QRSD: 93 T: -78 QT: 333 QTc: 499 Interpretive Statements SINUS TACHYCARDIA NONSPECIFIC ST & T-WAVE ABNORMALITY Electronically Signed On 04-30-2025 22:14:02 EDT by Isidro Robertson MD * Samia Ortega OT - 05/08/2025 1:28 PM EDT 05/08/25 1000 OT Subjective Note Type Chart Review;Evaluation Patient Room/Unit 3326 OT Subjective Comments #1 Pt agreeable with encouragement Others Present/Assisting JOSE Steven Discharge Information Evaluation to serve as discharge summary if no further treatment provided before the facility discharge Admitting Diagnosis pt is an 84 y.o. F admitted 04/30 for diabetic foot infection Past Med Hx Afib, PAD, HFpEF, L TMA 03/2025, R femur fx 03/2024, CABG 05/2024, emphysema, DANTE, Afib Diagnostic Testing MRI L foot: 1. Status post transmetatarsal amputation. There is mild marrow edema the metatarsal distal stump margins without evidence of osteomyelitis. 2. Dorsal soft tissue woundof the distal stump without an abscess. Precautions Therapy Precautions Yes Weight Bearing Status Weight bearing as tolerated Precaution Info Given Yes;Weight bearing;To use call light to request assistance with all mobility Home Living/Prior Function Type of Home House Home Layout One level;Stairs to enter w/ rails Number of Steps 4 Home Equipment 2 wheeled walker;4 wheeled walker;Wheelchair-manual Level of Assistance Needs assistance with ADLs;Needs assistance with homemaking;Independent with functional transfers;Ambulatory in home Lives With Alone Fall History No falls in the last three months ADL Assistance Bathing Homemaking Assistance Meal Prep;Laundry;Shopping Driving No Additional Comments Pt has been in/out of [facility] for rehab. Son assists with IADLs as needed,was independent w/ADLs prior to recurrent hospital admission Cognition Orientation Intact Arousal Normal Safety Awareness Impaired Safety Awareness Impairment Minimal Impairments: Needs up to 25% input/direction from therapist in order to identify safety issues and maintain safety. Affect/Ability to cope Impaired Affect/Ability to cope impairment Anxious Command Following Impaired Command following impairment Minimal Impairments: Needs up to 25% input/direction from therapist inorder to follow single step commands. Memory Impaired Memory impairment Decreased recall of recent events;Decreased recall of precautions Communication Intact Pain Screening PT/OT Patient Currently in Pain Yes Pain Location Foot Pain Orientation Left Pain Intervention(s) Repositioned Observation Presentation Patient resting in bed Observation Telemetry;Bed alarm Additional Comments L TMA, wound* UE Assessment LUE Assessment WFL RUE Assessment WFL Hand Function Hand Dominance Right Gross Grasp Functional Coordination Functional Coord/Sensation Assessed Grossly Intact/Normal Perception Perception Grossly intact/normal ADL Interventions Where Assessed Sitting on toilet/bedside commode;Chair Grooming Assistance Oral care;Washing hands;Stand by (seated to recliner in front of sink in room) LE Dressing Assistance Moderate;Pull up over hips (assistance to pull down/up underwear. Pt also required assist to place pad into underwear) Toileting Stand by assist;Anterior ana care Bed Mobility Supine to Sit Contact guard assist Transfers Sit to Stand Moderate assistance;With 2 people;With verbal cues Stand to Sit Moderate assistance;With 2 people;With verbal cues Bed to/from chair Moderate assistance;With 2 people Additional Comments Pt able to stand and pivot to commode w/RWx & Ax2. Pt stuggles to WB through L foot, but able to HWB with attempted education. Pt fatigues quickly and requires increased assist from commode to transfer into recliner. OT Gait Gait Moderate assistance;With 2 people assist Assistive Device 2 Wheel walker Weight Bearing Status Weight bearing as tolerated Additional Comments Pt takes small steps w/RWx for transfers Balance Sitting Balance 3/5 sits without UE support up to 30 seconds Standing Balance 1/5 performs 25-50% (moderate assistance) PT/OT Mobility Documentation PT/OT Mobility Score 5 Activity Tolerance Endurance Limits participation and activity Functional Status Score (FSS-ICU) Is the patient currently in ICU? No AM PAC: How much help from another person does the patient currently need... putting on and taking off regular lower body clothing? 2 bathing (including washing, rinsing, drying)? 2 toileting, which includes using toilet, bedpan or urinal? 3 putting on and taking off regular upper body clothing? 3 taking care of personal grooming such as brushing teeth? 3 eating meals? 3 AM PAC DAILY ACTIVITY SCORING Daily Activity Raw Score 16 AM PAC Daily Activity CMS 0-100% Functional Percentage 53.32 AM PAC Daily Activity CMS G Code Modifier CK Education Education To use call light to request assistance with all mobility;Role of Therapy;Patient/Family Education;Safety with mobility;Cues for proper technique;Discharge planning;Up with assistance only Patient Safety Patient left in chair with needs in reach;Chair/personal alarm activated;Nursing notified of status (RN in room at end of session) Assessment Assessment Decreased ADL status;Decreased Safe judgement during ADL;Decreased endurance;Decreased self-care transfers;Decreased high-level ADLs Prognosis Fair;With continued OT s/p acute discharge Rationale for Skilled Therapy Fall Risk;Balance Deficits;Not safe with independent transfers;Not safe ambulating independently;Needs physical cues for ADL's;Able to make measurable improvements;Decreased endurance and tolerance to activity;Requires multi-disciplinary team;Requires physical assistance with ADLs Additional Comments Pt demonstrates continued need for therapeutic intervention following continualhospital admissions. Will need skilled services once medically stable to maximize return to PLOF. Goals Patient and/or Family Goal for her foot to feel better Goals Yes Goal Formulation With Patient Time for Goal Achievement/Duration of Treatment 05/22 ADL Goals Pt Will Perform Upper Body Grooming Standing at sink;Contact guard Pt Will Perform Upper Body Bathing With setup Pt Will Perform Lower Body Bathing Minimal assistance Pt Will Perform LE Dressing Minimal assistance Functional Transfer Goals Pt Will Perform All Functional Transfers Contact guardance Plan Treatment Interventions ADL retraining;Functional transfer training;Endurance training;Equipment eval/education;Compensatory technique education;Co-treatment with Physical Therapy;Patient/Family training OT Frequency 2-5x/wk Recommendation OT Recommendation Moderate frequency, moderate intensity five days a week therapy recommended. Time In / Time Out [id number] (31 minutes) IP OT Evaluation Minutes 8 IP OT Individual Treatment Minutes 23 The total time spent caring for this patient included but was not limited to hands-on treatment;medical record review;communication and education with patient and/or family/caregiver;clinical judgement necessary for treatment planning for next session;communication with nursing and/or care coordinat ion/social work regarding patient status and discharge planning * Rhina Jones RN - 05/08/2025 1:27 PM EDT WOUND CARE: Consulted for area of concern to gluteal cleft. Upon assessment noted gluteal cleft with linear split that is pink and moist. I recommend applying calazime directly over the open wound and continue to use cavilon to the rest of the skin to protect. Also recommend continued use of prevention protocol including frequent turns and repositioning and offloading heels to relieve pressure. Updated patient and primary nurse on plan of care. Will not actively follow at this time. Please reconsult for any new areas of concern. Thank you. * Kaz Robertson MD - 05/08/2025 1:05 PM EDTAssociated Problem(s): Diabetic foot infection (HCC) Wound dehiscence over previous left TMA site. ESR, CRP normal. WBC wnl. Afebrile. No acute infection. - podiatry consulted - vascular consulted - MRI L foot 05/03 with mild marrow edema of metatarsal distal stump margins without evidence of osteomyelitis - Angiogram scheduled for Tuesday - pt declines proximal amputation (will continue to discuss), no plans for revision unless able to improve blood flow to foot - no abx at this time * Kaz Robertson MD - 05/08/2025 1:05 PM EDTAssociated Problem(s): S/P transmetatarsal amputation of foot, left (HCC) Wound dehiscence over previous left TMA site. ESR, CRP normal. WBC wnl. Afebrile. No acute infection. - podiatry consulted - vascular consulted - MRI L foot 05/03 with mild marrow edema of metatarsal distal stump margins without evidence of osteomyelitis - Angiogram scheduled for Tuesday - pt declines proximal amputation (will continue to discuss), no plans for revision unless able to improve blood flow to foot - no abx at this time * Kaz Robertson MD - 05/08/2025 1:05 PM EDTAssociated Problem(s): Paroxysmal atrial fibrillation (HCC) Heart rate controlled. 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 - QUALITY CONTROL ASSOCIATE coreg - cardiac monitoring -Heart rate 80 * Kaz Robertson MD - 05/08/2025 1:05 PM EDTAssociated Problem(s): Hypertension associated with diabetes (HCC) Well controlled. - QUALITY CONTROL ASSOCIATE coreg - monitor and adjust as needed -Blood pressure 124/66 * Kaz Robertson MD - 05/08/2025 1:05 PM EDTAssociated Problem(s): Wound dehiscence Continue to monitor * Kaz Robertson MD - 05/08/2025 1:05 PM EDTAssociated Problem(s): Anemia in other chronic diseases classified elsewhere Continue to monitor hemoglobin appears stable at the moment * Tenisha Wong, PT - 05/08/2025 10:19 AM EDT 05/08/25 1005 PT Subjective Note Type Treatment/Progress Patient Room/Unit 3326 PT Subjective Comments #1 pt agreeable with encouragement, requesting to use BSC Others Present/Assisting Adryan/OT; RN at end of session for meds Discharge Information This progress note will serve as the discharge summary if no further therapy is provided prior to the patient being discharged from the hospital. Admitting Diagnosis pt is an 84 y.o. F admitted 04/30 for diabetic foot infection Past Med Hx Afib, PAD, HFpEF, L TMA 03/2025, R femur fx 03/2024, CABG 05/2024, emphysema, DANTE, Afib Diagnostic Testing MRI L foot: 1. Status post transmetatarsal amputation. There is mild marrow edema the metatarsal distal stump margins without evidence of osteomyelitis. 2. Dorsal soft tissue woundof the distal stump without an abscess. Clinical Course podiatry signed off, no current plans for intervention; angio scheduled for 05/10 (chart reviewed through 05/08) Pain Screening PT/OT Patient Currently in Pain Yes Pain Location Foot Pain Orientation Left Pain Intervention(s) Repositioned Additional Comments pt does not rate pain at this time, but demo'd pain with WB through LLE Cognition Orientation Intact Arousal Normal Safety Awareness Impaired Safety Awareness Impairment Minimal Impairments: Needs up to 25% input/direction from therapist in order to identify safety issues and maintain safety. Affect/Ability to cope Impaired Affect/Ability to cope impairment Anxious Command Following Impaired Command following impairment Minimal Impairments: Needs up to 25% input/direction from therapist inorder to follow single step commands. Memory Impaired Memory impairment Decreased recall of recent events;Decreased recall of precautions Communication Intact Precautions Therapy Precautions Yes Weight Bearing Status Weight bearing as tolerated Precaution Info Given Yes;Weight bearing;To use call light to request assistance with all mobility Observation Presentation Patient resting in bed Posture R s/l Observation Telemetry;Bed alarm Bed Mobility Supine to Sit Contact guard assist Additional Comments pt sat to EOB without need for physical assist this session, CGA for balance seated EOB at EOB and on BSC Transfers Sit to Stand Moderate assistance;With 2 people;With verbal cues Stand to Sit Moderate assistance;With 2 people;With verbal cues Bed to/from chair Moderate assistance;With 2 people Additional Comments stood x1 from EOB and x2 from BSC, cues for proper foot placement as pt was avoiding WB through LLE, hand over hand placement req for proper hand placement; modAx2 for balance andsafety upon standing, pt only WB through RLE during stand but encouraged to perform heel WB throughLLE Gait Gait Moderate assistance;With 2 people assist Gait Distance (Feet) 1 Feet (+2) Assistive Device 2 Wheel walker Pattern Step to;Decreased stance time L;Antalgic;Decreased step length L;Decreased step length R Weight Bearing Status Weight bearing as tolerated;Heel weight bearing (per podiatry WBAT; for pt comfort/pain, edu on heel WB) Additional Comments pt took steps from EOB>BSC and BSC>chair with modAx2, was able to performheel WB for steps and cued for use of UE, cues for sequencing and safety with backing up to chair prior to sitting; declines further amb due to pain and fatigue this session Functional Status Score (FSS-ICU) Is the patient currently in ICU? No PT/OT Mobility Documentation PT/OT Mobility Score 5 AM PAC: How much help from another person does the patient currently need... turning from your back to your side while in a flat bed without using bedrails? 3 moving from lying on your back to sitting on the side of a flat bed without using bedrails? 3 moving to and from a bed to a chair? 2 standing up from a chair using your arms (e.g. wheelchair, or bedside chair)? 2 need to walk in hospital room? 1 climbing 3-5 steps with a railing? 1 AM PAC: BASIC MOBILITY SCORING AM PAC Moblity Raw Score 12 AM PAC Mobility CMS 0-100% Functional Percentage 61.94 AM PAC Mobility CMS G Code Modifier CL Balance Sitting Balance 3/5 sits without UE support up to 30 seconds Standing Balance 1/5 performs 25-50% (moderate assistance) Education Education To use call light to request assistance with all mobility;Patient/Family Education;Role of Therapy;Safety with mobility;Cues for proper technique;Up with assistance only;Safe and proper technique with gait pattern;Safe and proper technique with transfers;Educated on benefits of mobility, upright positioning, and getting out of bed Patient Safety Patient Safety Patient left in chair with needs in reach;Chair/personal alarm activated;Nursing notified of status (RN present for meds) Assessment Assessment Decreased gait;Decreased functional mobility;Decreased balance;Decreased RightLower Extremity strength;Decreased Left Lower Extremity strength;Decreased activity tolerance ;Decreased safety judgement Prognosis Fair;With continued PT s/p acute discharge Progress Slow progress toward goals, decreased activity tolerance Rationale for Skilled Therapy Fall Risk;Balance Deficits;Not safe with independent transfers;Not safe ambulating independently;Able to make measurable improvements;Decreased endurance and tolerance to activity Additional Comments Pt demonstrates progress toward goals with decreased assist for bed mobility and tolerating amb this session. Pt continues to require assist for all functional mobility due to decreased strength, endurance, balance and is limited due to pain. Pt will benefit from continued skilled PT to maximize return to PLOF and continue progressing toward stated goals. Goals Will Perform Supine To Sit With minimal assist;Met;New goal;Supervision Will Perform Sit to Supine With minimal assist;Not assessed Will Perform Sit to Stand With minimal assist;Not met Will Transfer Bed/Chair With moderate assist;Partly met Will Ambulate With 2 wheel walker;1-10 feet;With moderate assist;Partly met Time for Goal Achievement/Duration of Treatment 05/20 Plan Treatment/Interventions Continue with current plan of care PT Frequency 3-5x/week Recommendation PT Recommendation Moderate frequency, moderate intensity five days a week therapy recommended. Time In / Time Out [id number] PT Treatment Minutes 25 The total time spent caring for this patient included but was not limited to medical record review;hands-on treatment;communication and education with patient and/or family/caregiver;assessment of the patient's progress since the last session;clinical judgement necessary for treatment planning for next session;communication with nursing and/or care coordination/social work regarding patient status and discharge planning * Kaz Robertson MD - 05/08/2025 6:56 AM EDTAssociated Problem(s): PAD (peripheral artery disease) History of angiogram 01/2025. - vascular consulted - arterial studies 05/02 with significant PAD - plans for angiogram under anesthesia this week, April 10 - continue lipitor * Kaz Robertson MD - 05/08/2025 6:56 AM EDTAssociated Problem(s): Type 2 diabetes mellitus, without long-term current use of insulin (HCC) Last A1c 4.8 in 03/2024. QUALITY CONTROL ASSOCIATE meds include none. - hold off on FSBS, correctional algorithm - rpt A1c 5.3 * Kaz Robertson MD - 05/08/2025 6:56 AM EDTAssociated Problem(s): Acute on chronic heart failure with preserved ejection fraction (HCC) Echo 2023 normal EF. Euvolemic on exam - monitor I/O, daily weights - diuresis: QUALITY CONTROL ASSOCIATE lasix on hold - QUALITY CONTROL ASSOCIATE coreg * Kaz Robertson MD - 05/08/2025 6:56 AM EDTAssociated Problem(s): Stage 3a chronic kidney disease (HCC) Cre 1.05 at admit. Baseline approx 0.9-1.2. - caution with contrast - note plans for angiogram - monitor renal function closely - avoid hypotension, nephrotoxins as able * Kaz Robertson MD - 05/08/2025 6:56 AM EDTAssociated Problem(s): 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 History of CABG - continue lipitor, coreg, ranexa - cardiac monitoring * Kaz Robertson MD - 05/08/2025 6:56 AM EDT Images from the original note were not included. Hospitalist Progress Note Assessment & Plan Diabetic foot infection (HCC) S/P transmetatarsal amputation of foot, left (HCC) Wound dehiscence over previous left TMA site. ESR, CRP normal. WBC wnl. Afebrile. No acute infection. - podiatry consulted - vascular consulted - MRI L foot 05/03 with mild marrow edema of metatarsal distal stump margins without evidence of osteomyelitis - Angiogram scheduled for Tuesday - pt declines proximal amputation (will continue to discuss), no plans for revision unless able to improve blood flow to foot - no abx at this time PAD (peripheral artery disease) History of angiogram 01/2025. - vascular consulted - arterial studies 05/02 with significant PAD - plans for angiogram under anesthesia this week, April 10 - continue lipitor Paroxysmal atrial fibrillation (HCC) Heart rate controlled. 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 - QUALITY CONTROL ASSOCIATE coreg - cardiac monitoring -Heart rate 80 Type 2 diabetes mellitus, without long-term current use of insulin ([facility]) Last A1c 4.8 in 03/2024. QUALITY CONTROL ASSOCIATE meds include none. - hold off on FSBS, correctional algorithm - rpt A1c 5.3 Hypertension associated with diabetes ([facility]) Well controlled. - QUALITY CONTROL ASSOCIATE coreg - monitor and adjust as needed -Blood pressure 124/66 Chronic heart failure with preserved ejection fraction (HCC) Echo 2023 normal EF. Euvolemic on exam - monitor I/O, daily weights - diuresis: QUALITY CONTROL ASSOCIATE lasix on hold - QUALITY CONTROL ASSOCIATE coreg Stage 3a chronic kidney disease (HCC) Cre 1.05 at admit. Baseline approx 0.9-1.2. - caution with contrast - note plans for angiogram - monitor renal function closely - avoid hypotension, nephrotoxins as able 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 History of CABG - continue lipitor, coreg, ranexa - cardiac monitoring Wound dehiscence Continue to monitor Anemia in other chronic diseases classified elsewhere Continue to monitor hemoglobin appears stable at the moment Diet: Regular Diet Code Status: Full Code Rationale for Skilled Therapy: Fall Risk; Balance Deficits; Not safe with independent transfers; Not safe ambulating independently; Able to make measurable improvements; Decreased endurance and tolerance to activity (05/06/2025 10:54 AM) PT Recommendation: Moderate frequency, moderate intensity five days a week therapy recommended. (05/06/2025 10:54 AM) Handoff Completed: No Disposition Perspective - Medically ready for discharge: No Anticipated ready for discharge timeframe?: May 10 Ready for discharge when / if?: Post angiogram Estimated Date of Discharge: 05/10/2025 Date of Admission: 04/30/2025 Chief Complaint: Diabetic foot infection Subjective: Patient seen and examined. States she is nervous for procedure on Tuesday. No other acute issues ongoing. Discussed with specialist care team Medications: Reviewed Infusion Medications lactated ringers Scheduled Medications ALPRAZolam 0.5 mg Oral Nightly atorvastatin 40 mg Oral Nightly carvediloL 12.5 mg Oral BID dorzolamide-timoloL 1 Drop Ophthalmic BID gabapentin 300 mg Oral Nightly GLUCERNA Therapeutic 1 'box' Oral BID with Meals CRISTINE powder 1 Packet Oral BID latanoprost 1 Drop Ophthalmic Nightly pantoprazole 40 mg Oral Daily ranolazine 1,000 mg Oral Daily PRN Meds: acetaminophen, acetaminophen, dextrose, glucagon AND sterile water, lactated ringers,morphine OR [DISCONTINUED] morphine, oxyCODONE Intake/Output Summary (Last 24 hours) at 05/08/2025 0656 Last data filed at 05/07/2025 1753 Gross per 24 hour Intake 717 ml Output -- Net 717 ml Physical Exam Performed: BP 126/62 (BP Location: Right arm, Patient Position: Semi Fowlers) Pulse 112 Temp 97.7 ??F (36.5 ??C) (Oral) Resp 18 Ht 5' 2 (1.575 m) Wt 120 lb 11.2 oz (54.7 kg) SpO2 98% BMI 22.08 kg/m?? Physical Exam Vitals and nursing note reviewed. HENT: Head: Normocephalic. Nose: Nose normal. Eyes: Pupils: Pupils are equal, round, and reactive to light. Cardiovascular: Rate and Rhythm: Normal rate. Pulmonary: Effort: Pulmonary effort is normal. Abdominal: Palpations: Abdomen is soft. Neurological: Mental Status: She is alert. I personally reviewed and interpreted daily labs hemoglobin down to 7.4 but similar to 2 days prior Labs: Recent Labs 05/06/25 0559 05/07/25 0733 05/08/25 0524 WBC 4.5 6.8 3.9 HGB 7.6* 8.8* 7.4* HCT 23.3* 26.5* 22.6* PLT 64* 68* 60* Recent Labs 05/06/25 0559 05/06/25 0919 05/07/25 0733 NA 136 -- 135* K -- 4.8 4.2 CL 106 -- 104 CO2 19* -- 20* BUN 23 -- 24* CREATININE 0.81 -- 0.85 CALCIUM 8.7* -- 9.0 No results for input(s): AST , ALT , BILIDIR , BILITOT , ALKPHOS in the last 72 hours. No results for input(s): INR in the last 72 hours. Urinalysis: No results found for: WBCUA , BACTERIA , RBCUA , BLOODU , SPECGRAV , GLUCOSEU , KETONESU I personally reviewed and interpreted imaging not applicable Radiology: MRI FOOT LEFT WO CONTRAST Final Result 1. Status post transmetatarsal amputation. There is mild marrow edema the metatarsal distal stump margins without evidence of osteomyelitis. 2. Dorsal soft tissue wound of the distal stump without an abscess. [place] LOWER EXTREMITY ARTERIAL DUPLEX COMPLETE Final Result Conclusions * Triphasic Doppler flow pattern is noted in the right and left common femoral artery. * 20-49% stenosis right common femoral artery. * 20-49% stenosis proximal profunda artery. * 50-99% stenosis right proximal and mid SFA. * 50-99% stenosis right proximal anterior tibial artery. 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 * 50-99% stenosis left proximal/mid SFA. * 20-49% stenosis left distal SFA. * Occlusion left posterior tibial artery. * The great toe PPG waveform is absent. * There is a left TMA. * The right anterior tibial artery is non-compressible. * RABI: 0.50. * LABI: 1.35. * The right FERNIE is in the severe claudication range and the left FERNIE is in the normal range, however ABIs may be falsely elevated and unreliable secondary to calcified arterial andino. XR FOOT LEFT AP LATERAL AND OBLIQUE Final Result No radiographic evidence of recurrent osteomyelitis. - Note: Radiology results need to be interpreted within a comprehensive clinical context. If you have questions about the radiology report, please contact the office of the ordering clinician. XR CHEST AP PORTABLE Final Result No acute finding. - Note: Radiology results need to be interpreted within a comprehensive clinical context. If you have questions about the radiology report, please contact the office of the ordering clinician. EK EKG 12 LEAD ED Interpretation Atrial flutter with 2-1 AV block. Ventricular rate persistently at 134. Final Result [facility] Test Date: 2025-04-30 Pat Name: SKYLER NICOLEVAN Department: DEPID Room: [facility] Gender: Female Directory Carrier: CHANTEL : 1940 Requested By: DONNIE PLUMMER Order Number: [id number] Reading MD: Isidro Kennedy Measurements Intervals Cecil Rate: 134 P: 203 GA: 145 QRS: -6 QRSD: 93 T: -78 QT: 333 QTc: 499 Interpretive Statements SINUS TACHYCARDIA NONSPECIFIC ST & T-WAVE ABNORMALITY Electronically Signed On 04-30-2025 22:14:02 EDT by Isidro Robertson MD * Spencer Dye - 05/07/2025 4:06 PM EDT 05/07/25 1500 Reason for Visit Date of visit 05/07/25 Visited With Patient and family/visitors Visited By Hand Stemmer Reason for Visit Follow-up Patient Assessment Patient Appears Fearful;Anxious 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 [employer] Spiritual and Emotional Concerns Fear Patient Spiritual Wellbeing Moderate Acuity - Spiritual Distress Interventions with Patient [facility]aritan Interventions Prayer with patient or family Exploration Interventions Discussed illness/injury and its impact;Identified and reinforced appropriate coping strategies and strengths;Explored image of God in relationship to situation Outcomes Expressed Outcomes Expressed feeling supported Care Plan Plan for Follow-Up Hand Stemmer(s) will continue to follow throughout admission * Kaz Robertson MD - 05/07/2025 2:02 PM EDTAssociated Problem(s): Diabetic foot infection (HCC) Wound dehiscence over previous left TMA site. ESR, CRP normal. WBC wnl. Afebrile. No acute infection. - podiatry consulted - vascular consulted - MRI L foot 05/03 with mild marrow edema of metatarsal distal stump margins without evidence of osteomyelitis - Angiogram scheduled for Tuesday - further plans based on results - pt declines proximal amputation (will continue to discuss), no plans for revision unless able to improve blood flow to foot - no abx at this time * Kaz Robertson MD - 05/07/2025 2:02 PM EDTAssociated Problem(s): S/P transmetatarsal amputation of foot, left (HCC) Wound dehiscence over previous left TMA site. ESR, CRP normal. WBC wnl. Afebrile. No acute infection. - podiatry consulted - vascular consulted - MRI L foot 05/03 with mild marrow edema of metatarsal distal stump margins without evidence of osteomyelitis - Angiogram scheduled for Tuesday - further plans based on results - pt declines proximal amputation (will continue to discuss), no plans for revision unless able to improve blood flow to foot - no abx at this time * Kaz Robertson MD - 05/07/2025 2:02 PM EDTAssociated Problem(s): PAD (peripheral artery disease) History of angiogram 01/2025. - vascular consulted - arterial studies 05/02 with significant PAD - plans for angiogram under anesthesia this week, April 10 - continue lipitor * Kaz Robertson MD - 05/07/2025 2:02 PM EDTAssociated Problem(s): Paroxysmal atrial fibrillation (HCC) Heart rate controlled. 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 - QUALITY CONTROL ASSOCIATE coreg - cardiac monitoring -Heart rate 81 * Cely Gottlieb RD,LD - 05/07/2025 10:39 AM EDT [facility] Nutrition Malnutrition Reassessment Evidence Supported Diagnosis: No malnutrition identified Nutrition Prescription: Kcals: 7831-5523 kcal (25-30 kcal/kg) Protein (g): 65-82 gm Protein needs based on: 1.2-1.5 gm/kg Fluid (ml): 1 ml/kcal or per MD Plan/Interventions: Meals and Snacks: Regular Medical Food Supplements: Cristine, Glucerna Therapeutic Medical Food/Supplement Freq: BID Nutrition-Related Medication Management: Protonix Nutrition Education: Supplements, Increased nutrients for wound healing Collaboration And Referral Of Nutrition Care: Collaboration with other providers Nutrition Discharge Instructions: Continue to eat foods high in protein. Continue to drink protein shakes 1-2x per day for additional protein. Skyler Bautista is a 84 y.o. female patient. Admit Diagnosis: Wound dehiscence [T81.30XA] Diabetic foot infection (HCC) [E11.628, L08.9] Subjective: Subjective Comment: Brief f/u on pt's nutritional status. Pt's po intakes have been minimal. Limited meal intakes documented in flowsheets. Fair acceptance to oral nutritional supplements - decliningsome and accepting and drinking some. Pt unable to verbalize if she enjoys them or not. Will continue to send to promote healing. Anthropometric Measurements: Height: 5' 2 (157.5 cm) Weight: 120 lb (54.4 kg) BMI (Calculated): 21.95 BMI Assessment: 18.5-24.9 Normal IBW +/- 10%: 110 lb (49.9 kg) % IBW: 109 Food/Nutrition Related History: Dietary Orders Ordered Regular Diet DIET EFFECTIVE NOW 05/03/25 1007 GLUCERNA Therapeutic oral supplement 1 'box' Oral BID with Meals 1 'box' at 05/07/25 0809 CRISTINE powder oral supplement 1 Packet Oral BID 1 Packet at 05/07/25 0811 * Kaz Robertson MD - 05/07/2025 7:10 AM EDTAssociated Problem(s): Type 2 diabetes mellitus, without long-term current use of insulin (HCC) Last A1c 4.8 in 03/2024. QUALITY CONTROL ASSOCIATE meds include none. - hold off on FSBS, correctional algorithm - rpt A1c 5.3 * Kaz Robertson MD - 05/07/2025 7:10 AM EDTAssociated Problem(s): Hypertension associated with diabetes (HCC) Well controlled. - QUALITY CONTROL ASSOCIATE coreg - monitor and adjust as needed * Kaz Robertson MD - 05/07/2025 7:10 AM EDTAssociated Problem(s): Acute on chronic heart failure with preserved ejection fraction (HCC) Echo 2023 normal EF. Euvolemic on exam - monitor I/O, daily weights - diuresis: QUALITY CONTROL ASSOCIATE lasix on hold - QUALITY CONTROL ASSOCIATE coreg * Kaz Robertson MD - 05/07/2025 7:10 AM EDTAssociated Problem(s): Stage 3a chronic kidney disease (HCC) Cre 1.05 at admit. Baseline approx 0.9-1.2. - caution with contrast - note plans for angiogram - monitor renal function closely - avoid hypotension, nephrotoxins as able * Kaz Robertson MD - 05/07/2025 7:10 AM EDTAssociated Problem(s): 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 History of CABG - continue lipitor, coreg, ranexa - cardiac monitoring * Kaz Robertson MD - 05/07/2025 7:10 AM EDT Images from the original note were not included. Hospitalist Progress Note Assessment & Plan Diabetic foot infection (HCC) S/P transmetatarsal amputation of foot, left (HCC) Wound dehiscence over previous left TMA site. ESR, CRP normal. WBC wnl. Afebrile. No acute infection. - podiatry consulted - vascular consulted - MRI L foot 05/03 with mild marrow edema of metatarsal distal stump margins without evidence of osteomyelitis - Angiogram scheduled for Tuesday - further plans based on results - pt declines proximal amputation (will continue to discuss), no plans for revision unless able to improve blood flow to foot - no abx at this time PAD (peripheral artery disease) History of angiogram 01/2025. - vascular consulted - arterial studies 05/02 with significant PAD - plans for angiogram under anesthesia this week, April 10 - continue lipitor Paroxysmal atrial fibrillation (HCC) Heart rate controlled. 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 - QUALITY CONTROL ASSOCIATE coreg - cardiac monitoring -Heart rate 81 Type 2 diabetes mellitus, without long-term current use of insulin (HCC) Last A1c 4.8 in 03/2024. QUALITY CONTROL ASSOCIATE meds include none. - hold off on FSBS, correctional algorithm - rpt A1c 5.3 Hypertension associated with diabetes (HCC) Well controlled. - QUALITY CONTROL ASSOCIATE coreg - monitor and adjust as needed Chronic heart failure with preserved ejection fraction (HCC) Echo 2023 normal EF. Euvolemic on exam - monitor I/O, daily weights - diuresis: QUALITY CONTROL ASSOCIATE lasix on hold - QUALITY CONTROL ASSOCIATE coreg Stage 3a chronic kidney disease (HCC) Cre 1.05 at admit. Baseline approx 0.9-1.2. - caution with contrast - note plans for angiogram - monitor renal function closely - avoid hypotension, nephrotoxins as able 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 History of CABG - continue lipitor, coreg, ranexa - cardiac monitoring Wound dehiscence Diet: Regular Diet Code Status: Full Code Rationale for Skilled Therapy: Fall Risk; Balance Deficits; Not safe with independent transfers; Not safe ambulating independently; Able to make measurable improvements; Decreased endurance and tolerance to activity (05/06/2025 10:54 AM) PT Recommendation: Moderate frequency, moderate intensity five days a week therapy recommended. (05/06/2025 10:54 AM) Handoff Completed: No Disposition Perspective - Medically ready for discharge: No Anticipated ready for discharge timeframe?: 3 to 5 days Ready for discharge when / if?: Post angiogram Estimated Date of Discharge: 05/10/2025 Date of Admission: 04/30/2025 Chief Complaint: Leg pain Subjective: Patient seen and examined. Foot warm to the touch. Denies any pain. Discussed with podiatry and no plans for further surgical intervention. Await angiogram on Tuesday Discussed with specialist care team, podiatry Medications: Reviewed Infusion Medications Scheduled Medications ALPRAZolam 0.5 mg Oral Nightly atorvastatin 40 mg Oral Nightly carvediloL 12.5 mg Oral BID dorzolamide-timoloL 1 Drop Ophthalmic BID gabapentin 300 mg Oral Nightly GLUCERNA Therapeutic 1 'box' Oral BID with Meals CRISTINE powder 1 Packet Oral BID latanoprost 1 Drop Ophthalmic Nightly pantoprazole 40 mg Oral Daily ranolazine 1,000 mg Oral Daily PRN Meds: acetaminophen, dextrose, glucagon AND sterile water, morphine OR [DISCONTINUED] morphine, oxyCODONE Intake/Output Summary (Last 24 hours) at 05/07/2025 0710 Last data filed at 05/06/2025 1453 Gross per 24 hour Intake 237 ml Output -- Net 237 ml Physical Exam Performed: BP 112/67 (Patient Position: Semi Fowlers) Pulse 86 Temp 98.9 ??F (37.2 ??C) (Oral) Resp 18 Ht 5' 2 (1.575 m) Wt 120 lb 11.2 oz (54.7 kg) SpO2 98% BMI 22.08 kg/m?? Physical Exam Vitals and nursing note reviewed. HENT: Head: Normocephalic. Nose: Nose normal. Eyes: Pupils: Pupils are equal, round, and reactive to light. Cardiovascular: Rate and Rhythm: Normal rate. Pulmonary: Effort: Pulmonary effort is normal. Abdominal: Palpations: Abdomen is soft. Neurological: Mental Status: She is alert. I personally reviewed and interpreted daily labs not applicable Labs: Recent Labs 05/06/25 0559 WBC 4.5 HGB 7.6* HCT 23.3* PLT 64* Recent Labs 05/06/25 0559 05/06/25 0919 NA 136 -- K -- 4.8 CL 106 -- CO2 19* -- BUN 23 -- CREATININE 0.81 -- CALCIUM 8.7* -- No results for input(s): AST , ALT , BILIDIR , BILITOT , ALKPHOS in the last 72 hours. No results for input(s): INR in the last 72 hours. Urinalysis: No results found for: WBCUA , BACTERIA , RBCUA , BLOODU , SPECGRAV , GLUCOSEU , KETONESU I personally reviewed and interpreted imaging not applicable Radiology: MRI FOOT LEFT WO CONTRAST Final Result 1. Status post transmetatarsal amputation. There is mild marrow edema the metatarsal distal stump margins without evidence of osteomyelitis. 2. Dorsal soft tissue wound of the distal stump without an abscess. VA US LOWER EXTREMITY ARTERIAL DUPLEX COMPLETE Final Result Conclusions * Triphasic Doppler flow pattern is noted in the right and left common femoral artery. * 20-49% stenosis right common femoral artery. * 20-49% stenosis proximal profunda artery. * 50-99% stenosis right proximal and mid SFA. * 50-99% stenosis right proximal anterior tibial artery. 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 * 50-99% stenosis left proximal/mid SFA. * 20-49% stenosis left distal SFA. * Occlusion left posterior tibial artery. * The great toe PPG waveform is absent. * There is a left TMA. * The right anterior tibial artery is non-compressible. * RABI: 0.50. * LABI: 1.35. * The right FERNIE is in the severe claudication range and the left FERNIE is in the normal range, however ABIs may be falsely elevated and unreliable secondary to calcified arterial andino. XR FOOT LEFT AP LATERAL AND OBLIQUE Final Result No radiographic evidence of recurrent osteomyelitis. - Note: Radiology results need to be interpreted within a comprehensive clinical context. If you have questions about the radiology report, please contact the office of the ordering clinician. XR CHEST AP PORTABLE Final Result No acute finding. - Note: Radiology results need to be interpreted within a comprehensive clinical context. If you have questions about the radiology report, please contact the office of the ordering clinician. EK EKG 12 LEAD ED Interpretation Atrial flutter with 2-1 AV block. Ventricular rate persistently at 134. Final Result [facility] Test Date: 2025-04-30 Pat Name: SKYLER BAUTISTA Department: DEPID Room: [facility] Gender: Female Directory Carrier: CHANTEL : 1940 Requested By: DONNIE PLUMMER Order Number: [id number] Ivone MD: Isidro Kennedy Measurements Intervals Cecil Rate: 134 P: 203 GA: 145 QRS: -6 QRSD: 93 T: -78 QT: 333 QTc: 499 Interpretive Statements SINUS TACHYCARDIA NONSPECIFIC ST & T-WAVE ABNORMALITY Electronically Signed On 04-30-2025 22:14:02 EDT by Isidro Robertson MD * Radha Looney, PT - 05/06/2025 11:47 AM EDT 05/06/25 1054 PT Subjective Note Type Evaluation;Chart Review Patient Room/Unit 3326 PT Subjective Comments #1 pt agreeable, has to use the [facility] Discharge Information Evaluation to serve as discharge summary if no further treatment provided before the facility discharge Admitting Diagnosis Diabetic foot infection (HCC) Past Med Hx Afib, PAD, HFpEF, L TMA 03/2025, R femur fx 03/2024, CABG 05/2024, emphysema, DANTE, Afib Diagnostic Testing MRI L foot: 1. Status post transmetatarsal amputation. There is mild marrow edema the metatarsal distal stump margins without evidence of osteomyelitis. 2. Dorsal soft tissue woundof the distal stump without an abscess. Clinical Course 04/30: To ED from [facility] with L TMA dehiscence, L Foot XR:(-)osteo, IV abx, podiatry c/s 05/01 Per Podatry pt refused BKA, IV Abx to continue for conservative tx. Pain Screening PT/OT Patient Currently in Pain Yes Pain Rating Patient unable to rate pain Pain Location Foot Pain Orientation Left Pain Intervention(s) Repositioned;Emotional support Additional Comments pt moans t/o session due to foot pain Cognition Orientation Intact Arousal Impaired Arousal Impairment Lethargic;Delayed responses to stimuli Safety Awareness Impaired Safety Awareness Impairment Minimal Impairments: Needs up to 25% input/direction from therapist in order to identify safety issues and maintain safety. Affect/Ability to cope Impaired Affect/Ability to cope impairment Anxious;Tearful;Does not make eye contact Command Following Impaired Command following impairment Minimal Impairments: Needs up to 25% input/direction from therapist inorder to follow single step commands. Memory Impaired Memory impairment Decreased recall of recent events;Decreased recall of prior level of function;Decreased recall of precautions Communication Impaired Additional comments minimal verbalization, moans the frequently says, oh, Lord. due to pain Precautions Therapy Precautions Yes Weight Bearing Status Weight bearing as tolerated Precaution Info Given Yes;Weight bearing Other precautions per podiatry Home Living/Prior Function Additional Comments per chart, pt was at [facility] prior to admit, plan to stay with her sister at d/c. Home Equipment 2 wheeled walker;Cane;Wheelchair-manual Additional Comments Pt cannot provide information on home set up or PLOF Coord/Sensation Assessed Grossly Intact/Normal Perception Perception Grossly intact/normal Observation Presentation Patient resting in bed Observation Telemetry;Bed alarm LE Assessment LLE Additional Comments functionally weak, grossly 3/5 RLE Additional Comments functionally weak, grossly 3+/5 Bed Mobility Supine to Sit Moderate assistance;With cues;With bed rails;Head of bed slightly elevated Additional Comments Pt anxious about mobility due to pain Transfers Sit to Stand Moderate assistance;With verbal cues;With raised bed height Stand to Sit Moderate assistance;With verbal cues Additional Comments Attempted STS x 2 from EOB to 2ww, with cues given for hand placement and anterior wt shift. Pt conts to present with significant posterior lean, and unable to place wt on her L LE. Therefore transferred bed>BSC>chair using Stedy Gait Gait BHAVANA Functional Status Score (FSS-ICU) Is the patient currently in ICU? No PT/OT Mobility Documentation PT/OT Mobility Score 4 AM PAC: How much help from another person does the patient currently need... turning from your back to your side while in a flat bed without using bedrails? 2 moving from lying on your back to sitting on the side of a flat bed without using bedrails? 2 moving to and from a bed to a chair? 1 standing up from a chair using your arms (e.g. wheelchair, or bedside chair)? 2 need to walk in hospital room? 1 climbing 3-5 steps with a railing? 1 AM PAC: BASIC MOBILITY SCORING AM PAC Moblity Raw Score 9 AM PAC Mobility CMS 0-100% Functional Percentage 77.59 AM PAC Mobility CMS G Code Modifier CL Balance Sitting Balance 2+/5 supports self with 1 UE Standing Balance 1/5 performs 25-50% (moderate assistance) Education Education To use call light to request assistance with all mobility;Patient/Family Education;Role of Therapy;Safety with mobility;Cues for proper technique;Discharge planning;Up with assistance only;Precautions;Safe and proper technique with transfers;Safe and proper technique with gait pattern;Safe and proper posture/positioning Patient Safety Patient Safety Patient left in chair with needs in reach;Nursing notified of status;Chair/personal alarm activated Assessment Assessment Decreased gait;Decreased functional mobility;Decreased balance;Decreased RightLower Extremity strength;Decreased Left Lower Extremity strength;Decreased activity tolerance ;Decreased safety judgement Prognosis Fair Rationale for Skilled Therapy Fall Risk;Balance Deficits;Not safe with independent transfers;Not safe ambulating independently;Able to make measurable improvements;Decreased endurance and tolerance to activity Goals Patient and/or Family Goal improve pain PT GOALS (Yes/No) Yes Add Goals Will Perform Supine To Sit With minimal assist Will Perform Sit to Supine With minimal assist Will Perform Sit to Stand With minimal assist Will Transfer Bed/Chair With moderate assist Will Ambulate With 2 wheel walker;1-10 feet;With moderate assist Goal Formulation With patient Time for Goal Achievement/Duration of Treatment 14 days, 05/20/2025 Plan Treatment/Interventions Gait training;Bed mobility;Neuromuscular re- education;Balance training;Functional transfer training;LE strengthening/ROM;Increase activity tolerance PT Frequency 3-5x/week Recommendation PT Recommendation Moderate frequency, moderate intensity five days a week therapy recommended. Time In / Time Out [id number] IP PT Evaluation Minutes 10 IP PT Treatment Minutes 43 The total time spent caring for this patient included but was not limited to medical record review;hands-on treatment;communication and education with patient and/or family/caregiver;clinical judgement necessary for treatment planning for next session;communication with nursing and/or care coordinat ion/social work regarding patient status and discharge planning * Rosario Izaguirre PEOPLESOFT - 05/06/2025 10:01 AM EDT 05/06/25 1000 Ongoing Discharge Planning Evaluation Completed by CC/NORA Yes Repisodic List provided Yes, Provided information, demonstrated how to access quality and resource utilization data for post acute provider and offered assistance and [facility] Financial Disclosure completed Actual Discharge Plan 05/06/2025 NORA Update: NORA spoke with pt at bedside, pt has declined to work with therapy on several occasions. NORA encouraged pt to work with therapy if she was wanting to go back to rehab. Per chart review and care team, plan for angiogram this week. Podiatry and VasSurg following. NORA attempted all to pts son, but was not able to reach him, NORA left VM. NORA left VM for pts sister Adriana as well. Dispo pending angio and pt working with therapy. SW following Addendum: SW received call back from pts sister. Confirmed pt wa at [facility] and should go back there. Plans to speak with the pt about working with therapy. * Geo Guallpa MD - 05/06/2025 9:31 AM EDTAssociated Problem(s): Diabetic foot infection (HCC) Wound dehiscence over previous left TMA site. ESR, CRP normal. WBC wnl. Afebrile. No acute infection. - podiatry consulted - vascular consulted - MRI L foot 05/03 with mild marrow edema of metatarsal distal stump margins without evidence of osteomyelitis - note plans for rpt angiogram under anesthesia this week - further plans based on results - pt declines proximal amputation (will continue to discuss), no plans for revision unless able to improve blood flow to foot - no abx at this time * Geo Guallpa MD - 05/06/2025 9:31 AM EDTAssociated Problem(s): S/P transmetatarsal amputation of foot, left (HCC) Wound dehiscence over previous left TMA site. ESR, CRP normal. WBC wnl. Afebrile. No acute infection. - podiatry consulted - vascular consulted - MRI L foot 05/03 with mild marrow edema of metatarsal distal stump margins without evidence of osteomyelitis - note plans for rpt angiogram under anesthesia this week - further plans based on results - pt declines proximal amputation (will continue to discuss), no plans for revision unless able to improve blood flow to foot - no abx at this time * Geo Guallpa MD - 05/06/2025 9:31 AM EDTAssociated Problem(s): PAD (peripheral artery disease) History of angiogram 01/2025. - vascular consulted - arterial studies 05/02 with significant PAD - plans for angiogram under anesthesia this week - continue lipitor * Geo Guallpa MD - 05/06/2025 9:31 AM EDTAssociated Problem(s): Paroxysmal atrial fibrillation (HCC) Heart rate controlled. 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 - QUALITY CONTROL ASSOCIATE coreg - cardiac monitoring * Geo Guallpa MD - 05/06/2025 9:31 AM EDTAssociated Problem(s): Type 2 diabetes mellitus, without long-term current use of insulin ([facility]) Last A1c 4.8 in 03/2024. QUALITY CONTROL ASSOCIATE meds include none. - hold off on FSBS, correctional algorithm - rpt A1c 5.3 * Geo Guallpa MD - 05/06/2025 9:31 AM EDTAssociated Problem(s): Hypertension associated with diabetes ([facility]) Well controlled. - QUALITY CONTROL ASSOCIATE coreg - monitor and adjust as needed * Geo Guallpa MD - 05/06/2025 9:31 AM EDTAssociated Problem(s): Acute on chronic heart failure with preserved ejection fraction (HCC) Echo 2023 normal EF. Euvolemic on exam - monitor I/O, daily weights - diuresis: QUALITY CONTROL ASSOCIATE lasix on hold - QUALITY CONTROL ASSOCIATE coreg * Geo Guallpa MD - 05/06/2025 9:31 AM EDTAssociated Problem(s): Stage 3a chronic kidney disease (HCC) Cre 1.05 at admit. Baseline approx 0.9-1.2. - caution with contrast - note plans for angiogram - monitor renal function closely - avoid hypotension, nephrotoxins as able * Geo Guallpa MD - 05/06/2025 9:31 AM EDTAssociated Problem(s): 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 History of CABG - continue lipitor, coreg, ranexa - cardiac monitoring * Geo Guallpa MD - 05/06/2025 9:28 AM EDT PROGRESS NOTE Handoff Completed:Yes/No: Yes Disposition Perspective - Medically ready for discharge: No Anticipated ready for discharge timeframe?: >5 days Ready for discharge when / if?: after angiogram, further plans dependent on results. Admitted on 04/30/2025: with: foot infection, necrosis of TMA incision. Podiatry, vascular following. Planning angiogram on Tuesday. Plan moving forward depends on results of that. Estimated Date of Discharge: 05/10/2025 Assessment/Plan: Assessment & Plan Diabetic foot infection (HCC) S/P transmetatarsal amputation of foot, left (HCC) Wound dehiscence over previous left TMA site. ESR, CRP normal. WBC wnl. Afebrile. No acute infection. - podiatry consulted - vascular consulted - MRI L foot 05/03 with mild marrow edema of metatarsal distal stump margins without evidence of osteomyelitis - note plans for rpt angiogram under anesthesia this week - further plans based on results - pt declines proximal amputation (will continue to discuss), no plans for revision unless able to improve blood flow to foot - no abx at this time PAD (peripheral artery disease) History of angiogram 01/2025. - vascular consulted - arterial studies 05/02 with significant PAD - plans for angiogram under anesthesia this week - continue lipitor Paroxysmal atrial fibrillation (HCC) Heart rate controlled. 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 - QUALITY CONTROL ASSOCIATE coreg - cardiac monitoring Type 2 diabetes mellitus, without long-term current use of insulin (HCC) Last A1c 4.8 in 03/2024. QUALITY CONTROL ASSOCIATE meds include none. - hold off on FSBS, correctional algorithm - rpt A1c 5.3 Hypertension associated with diabetes (HCC) Well controlled. - QUALITY CONTROL ASSOCIATE coreg - monitor and adjust as needed Chronic heart failure with preserved ejection fraction (HCC) Echo 2023 normal EF. Euvolemic on exam - monitor I/O, daily weights - diuresis: QUALITY CONTROL ASSOCIATE lasix on hold - QUALITY CONTROL ASSOCIATE coreg Stage 3a chronic kidney disease (HCC) Cre 1.05 at admit. Baseline approx 0.9-1.2. - caution with contrast - note plans for angiogram - monitor renal function closely - avoid hypotension, nephrotoxins as able 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 History of CABG - continue lipitor, coreg, ranexa - cardiac monitoring Dispo: Continue current level of care Angiogram on Tuesday VTE Prophylaxis: Active Hospital Problems Diagnosis *Diabetic foot infection (HCC) S/P transmetatarsal amputation of foot, left (HCC) Stage 3a chronic kidney disease (HCC) PAD (peripheral artery disease) Chronic heart failure with preserved ejection fraction (HCC) Paroxysmal atrial fibrillation (HCC) 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 Type 2 diabetes mellitus, without long-term current use of insulin (HCC) Hypertension associated with diabetes (HCC) Subjective: Ms. Bautista is just waking up. Her foot hurts. No other concerns. Objective: BP 110/60 (Patient Position: Lying right side) Pulse 82 Temp 98.2 ??F (36.8 ??C) (Oral) Resp 18 Ht 5' 2 (1.575 m) Wt 120 lb 11.2 oz (54.7 kg) SpO2 97% BMI 22.08 kg/m?? I/O last 3 completed shifts: In: 237 [P.O.:237] Out: - Weight: 120 lb 11.2 oz (54.7 kg) Constitutional: Alert and oriented to person, place, and time. No distress. Cardiovascular: Normal rate and regular rhythm. Pulmonary/Chest: Effort normal. No respiratory distress. There are no wheezes. Musculoskeletal: No edema. L TMA Neurological: Grossly normal. Skin: Skin is warm and dry. L TMA incision necrotic Labs: Laboratory data and diagnostic testing reviewed 05/06/25. Geo Guallpa MD 05/06/2025 9:28 AM * Geo Guallpa MD - 05/05/2025 1:00 PM EDTAssociated Problem(s): Diabetic foot infection (HCC) Wound dehiscence over previous left TMA site. ESR, CRP normal. WBC wnl. Afebrile. No acute infection. - podiatry consulted - vascular consulted - MRI L foot 05/03 with mild marrow edema of metatarsal distal stump margins without evidence of osteomyelitis - note plans for rpt angiogram under anesthesia this week - further plans based on results - pt declines proximal amputation, no plans for revision unless able to improve blood flow to foot - no abx at this time * Geo Guallpa MD - 05/05/2025 1:00 PM EDTAssociated Problem(s): S/P transmetatarsal amputation of foot, left (HCC) Wound dehiscence over previous left TMA site. ESR, CRP normal. WBC wnl. Afebrile. No acute infection. - podiatry consulted - vascular consulted - MRI L foot 05/03 with mild marrow edema of metatarsal distal stump margins without evidence of osteomyelitis - note plans for rpt angiogram under anesthesia this week - further plans based on results - pt declines proximal amputation, no plans for revision unless able to improve blood flow to foot - no abx at this time * Geo Guallpa MD - 05/05/2025 1:00 PM EDTAssociated Problem(s): PAD (peripheral artery disease) History of angiogram 01/2025. - vascular consulted - arterial studies 05/02 with significant PAD - plans for angiogram under anesthesia this week - continue lipitor * Geo Guallpa MD - 05/05/2025 1:00 PM EDTAssociated Problem(s): Paroxysmal atrial fibrillation (HCC) Heart rate controlled. 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 - QUALITY CONTROL ASSOCIATE coreg - cardiac monitoring * Geo Guallpa MD - 05/05/2025 1:00 PM EDTAssociated Problem(s): Type 2 diabetes mellitus, without long-term current use of insulin (HCC) Last A1c 4.8 in 03/2024. QUALITY CONTROL ASSOCIATE meds include none. - hold off on FSBS, correctional algorithm - note metformin started - will stop given plans for angiogram this week - rpt A1c ordered * Geo Guallpa MD - 05/05/2025 1:00 PM EDTAssociated Problem(s): Hypertension associated with diabetes (HCC) Well controlled. - QUALITY CONTROL ASSOCIATE coreg - monitor and adjust as needed * Geo Guallpa MD - 05/05/2025 1:00 PM EDTAssociated Problem(s): Acute on chronic heart failure with preserved ejection fraction (HCC) Echo 2023 normal EF. Euvolemic on exam - monitor I/O, daily weights - diuresis: QUALITY CONTROL ASSOCIATE lasix on hold - QUALITY CONTROL ASSOCIATE coreg * Geo Guallpa MD - 05/05/2025 1:00 PM EDTAssociated Problem(s): Stage 3a chronic kidney disease (HCC) Cre 1.05 at admit. Baseline approx 0.9-1.2. - caution with contrast - note plans for angiogram - monitor renal function closely - avoid hypotension, nephrotoxins as able * Geo Guallpa MD - 05/05/2025 1:00 PM EDTAssociated Problem(s): 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 History of CABG - continue lipitor, coreg, ranexa - cardiac monitoring * Geo Guallpa MD - 05/05/2025 12:57 PM EDT PROGRESS NOTE Assessment/Plan: Assessment & Plan Diabetic foot infection (HCC) S/P transmetatarsal amputation of foot, left ([facility]) Wound dehiscence over previous left TMA site. ESR, CRP normal. WBC wnl. Afebrile. No acute infection. - podiatry consulted - vascular consulted - MRI L foot 05/03 with mild marrow edema of metatarsal distal stump margins without evidence of osteomyelitis - note plans for rpt angiogram under anesthesia this week - further plans based on results - pt declines proximal amputation, no plans for revision unless able to improve blood flow to foot - no abx at this time PAD (peripheral artery disease) History of angiogram 01/2025. - vascular consulted - arterial studies 05/02 with significant PAD - plans for angiogram under anesthesia this week - continue lipitor Paroxysmal atrial fibrillation (HCC) Heart rate controlled. 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 - QUALITY CONTROL ASSOCIATE coreg - cardiac monitoring Type 2 diabetes mellitus, without long-term current use of insulin ([facility]) Last A1c 4.8 in 03/2024. QUALITY CONTROL ASSOCIATE meds include none. - hold off on FSBS, correctional algorithm - note metformin started - will stop given plans for angiogram this week - rpt A1c ordered Hypertension associated with diabetes ([facility]) Well controlled. - QUALITY CONTROL ASSOCIATE coreg - monitor and adjust as needed Chronic heart failure with preserved ejection fraction ([facility]) Echo 2023 normal EF. Euvolemic on exam - monitor I/O, daily weights - diuresis: QUALITY CONTROL ASSOCIATE lasix on hold - QUALITY CONTROL ASSOCIATE coreg Stage 3a chronic kidney disease (HCC) Cre 1.05 at admit. Baseline approx 0.9-1.2. - caution with contrast - note plans for angiogram - monitor renal function closely - avoid hypotension, nephrotoxins as able 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 History of CABG - continue lipitor, coreg, ranexa - cardiac monitoring Dispo: Continue current level of care VTE Prophylaxis: Active Hospital Problems Diagnosis *Diabetic foot infection (HCC) S/P transmetatarsal amputation of foot, left (HCC) Stage 3a chronic kidney disease (HCC) PAD (peripheral artery disease) Chronic heart failure with preserved ejection fraction (HCC) Paroxysmal atrial fibrillation (HCC) 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 Type 2 diabetes mellitus, without long-term current use of insulin (HCC) Hypertension associated with diabetes (HCC) Subjective: Ms. Bautista is up in the chair. Reports she's getting some tingling in her foot, which she's hopeful means she'll have a good outcome. She states she can't see herself getting an amputation. Discussed with her and her son, [id number], at bedside. When asked what might happen if angiogram shows there aren't any areas for intervention and she declines amputation, she states I might . Family having good conversations with her. Objective: BP 136/76 Pulse 114 Temp 98.7 ??F (37.1 ??C) Resp 18 Ht 5' 2 (1.575 m) Wt 120 lb 11.2 oz(54.7 kg) SpO2 98% BMI 22.08 kg/m?? I/O last 3 completed shifts: In: 237 [P.O.:237] Out: - Weight: 120 lb 11.2 oz (54.7 kg) Constitutional: Alert and oriented to person, place, and time. No distress. Cardiovascular: Normal rate and regular rhythm. Pulmonary/Chest: Effort normal and breath sounds normal. No respiratory distress. There are no wheezes. Musculoskeletal: No edema. Neurological: Grossly normal. Skin: Skin is warm and dry. Necrotic over L TMA incision. No erythema, drainage. Labs: Laboratory data and diagnostic testing reviewed 05/05/25. Geo Guallpa MD 05/05/2025 12:57 PM * Geo Guallpa MD - 05/05/2025 12:57 PM EDTAssociated Problem(s): PAD (peripheral artery disease) History of angiogram 01/2025. - vascular consulted - arterial studies 05/02 with significant PAD - plans for angiogram under anesthesia this week - continue lipitor * Geo Guallpa MD - 05/05/2025 12:57 PM EDTAssociated Problem(s): Paroxysmal atrial fibrillation (HCC) Heart rate controlled. 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 - QUALITY CONTROL ASSOCIATE coreg - cardiac monitoring * Geo Guallpa MD - 05/05/2025 12:57 PM EDTAssociated Problem(s): Type 2 diabetes mellitus, without long-term current use of insulin (HCC) Last A1c 4.8 in 03/2024. QUALITY CONTROL ASSOCIATE meds include none. - hold off on FSBS, correctional algorithm - note metformin started - will stop given plans for angiogram this week - rpt A1c * Geo Guallpa MD - 05/05/2025 12:57 PM EDTAssociated Problem(s): Acute on chronic heart failure with preserved ejection fraction (HCC) Echo 2023 normal EF. Euvolemic on exam - monitor I/O, daily weights - diuresis: QUALITY CONTROL ASSOCIATE lasix on hold - QUALITY CONTROL ASSOCIATE coreg * Geo Guallpa MD - 05/05/2025 12:57 PM EDTAssociated Problem(s): Hypertension associated with diabetes (HCC) Well controlled. - QUALITY CONTROL ASSOCIATE coreg - monitor and adjust as needed * Geo Guallpa MD - 05/05/2025 12:57 PM EDTAssociated Problem(s): Stage 3a chronic kidney disease (HCC) Cre 1.05 at admit. Baseline approx 0.9-1.2. - caution with contrast - note plans for angiogram - monitor renal function closely - avoid hypotension, nephrotoxins as able * Geo Guallpa MD - 05/05/2025 12:57 PM EDTAssociated Problem(s): 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 History of CABG - continue lipitor, coreg, ranexa - cardiac monitoring * Jeferson Gipson PT - 05/04/2025 6:26 PM EDT 05/04/25 1825 PT Subjective Note Type Evaluation Attempt Patient Room/Unit 3326 PT Subjective Comments #1 requesting PT return tomorrow afternoon Therapy delay reason Patient declined * Geo Guallpa MD - 05/04/2025 12:51 PM EDTAssociated Problem(s): Diabetic foot infection (HCC) Wound dehiscence over previous left TMA site. ESR, CRP normal. WBC wnl. Afebrile. No acute infection. - podiatry consulted - vascular consulted - MRI L foot 05/03 with mild marrow edema of metatarsal distal stump margins without evidence of osteomyelitis - note plans for rpt angiogram under anesthesia this week - further plans based on results - pt declines proximal amputation, no plans for revision unless able to improve blood flow to foot - no abx at this time * Geo Guallpa MD - 05/04/2025 12:51 PM EDTAssociated Problem(s): S/P transmetatarsal amputation of foot, left (HCC) Wound dehiscence over previous left TMA site. ESR, CRP normal. WBC wnl. Afebrile. No acute infection. - podiatry consulted - vascular consulted - MRI L foot 05/03 with mild marrow edema of metatarsal distal stump margins without evidence of osteomyelitis - note plans for rpt angiogram under anesthesia this week - further plans based on results - pt declines proximal amputation, no plans for revision unless able to improve blood flow to foot - no abx at this time * Geo Guallpa MD - 05/04/2025 12:46 PM EDT PROGRESS NOTE Assessment/Plan: Assessment & Plan Diabetic foot infection (HCC) S/P transmetatarsal amputation of foot, left (HCC) Wound dehiscence over previous left TMA site. ESR, CRP normal. WBC wnl. Afebrile. No acute infection. - podiatry consulted - vascular consulted - MRI L foot 05/03 with mild marrow edema of metatarsal distal stump margins without evidence of osteomyelitis - note plans for rpt angiogram under anesthesia this week - further plans based on results - pt declines proximal amputation, no plans for revision unless able to improve blood flow to foot - no abx at this time PAD (peripheral artery disease) History of angiogram 01/2025. - vascular consulted - arterial studies 05/02 with significant PAD - plans for angiogram under anesthesia this week - continue lipitor Paroxysmal atrial fibrillation (HCC) Heart rate controlled. 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 - QUALITY CONTROL ASSOCIATE coreg - cardiac monitoring Type 2 diabetes mellitus, without long-term current use of insulin ([facility]) Last A1c 4.8 in 03/2024. QUALITY CONTROL ASSOCIATE meds include none. - hold off on FSBS, correctional algorithm - note metformin started - will stop given plans for angiogram this week - rpt A1c Hypertension associated with diabetes (HCC) Well controlled. - QUALITY CONTROL ASSOCIATE coreg - monitor and adjust as needed Chronic heart failure with preserved ejection fraction (HCC) Echo 2023 normal EF. Euvolemic on exam - monitor I/O, daily weights - diuresis: QUALITY CONTROL ASSOCIATE lasix on hold - QUALITY CONTROL ASSOCIATE coreg Stage 3a chronic kidney disease (HCC) Cre 1.05 at admit. Baseline approx 0.9-1.2. - caution with contrast - note plans for angiogram - monitor renal function closely - avoid hypotension, nephrotoxins as able 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 History of CABG - continue lipitor, coreg, ranexa - cardiac monitoring Dispo: Continue current level of care Pt declining PT d/t pain VTE Prophylaxis: Active Hospital Problems Diagnosis *Diabetic foot infection (HCC) S/P transmetatarsal amputation of foot, left (HCC) Stage 3a chronic kidney disease (HCC) PAD (peripheral artery disease) Chronic heart failure with preserved ejection fraction (HCC) Paroxysmal atrial fibrillation (HCC) 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 Type 2 diabetes mellitus, without long-term current use of insulin (HCC) Primary hypertension Subjective: Ms. Bautista reports not feeling well. Continued pain in her foot. Declined working with PT yesterday. Has been declining proximal amputation. Discussed with her again today. Agrees she may need to reconsider pending angiogram. Objective: BP 141/67 (BP Location: Right arm, Patient Position: Semi Fowlers) Pulse 78 Temp 98.2 ??F (36.8??C) (Oral) Resp 16 Ht 5' 2 (1.575 m) Wt 120 lb 11.2 oz (54.7 kg) SpO2 98% BMI 22.08 kg/m?? I/O last 3 completed shifts: In: 502 [P.O.:502] Out: - Weight: 120 lb 11.2 oz (54.7 kg) Constitutional: Alert and oriented to person, place, and time. No distress. Cardiovascular: Normal rate and regular rhythm. Pulmonary/Chest: Effort normal. No respiratory distress. There are no wheezes. Musculoskeletal: necrotic ulcer at L TMA margin Neurological: Grossly normal. Skin: Skin is warm and dry. Labs: Laboratory data and diagnostic testing reviewed 05/04/25. Geo Guallpa MD 05/04/2025 12:46 PM * Dacia Mills DPM - 05/04/2025 11:27 AM EDT Images from the original note were not included. Name: Skyler Bautista Date of Admission: 04/30/2025 Admitting Diagnosis: Diabetic foot infection (HCC) ASSESSMENT: Active Hospital Problems Diagnosis *Diabetic foot infection (HCC) S/P transmetatarsal amputation of foot, left (HCC) Stage 3a chronic kidney disease (HCC) PAD (peripheral artery disease) Chronic heart failure with preserved ejection fraction (HCC) Paroxysmal atrial fibrillation (HCC) 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 Type 2 diabetes mellitus, without long-term current use of insulin (HCC) Primary hypertension PLAN: - Patient examined and evaluated at bedside. - Most recent labs and imaging reviewed. - Continue local wound care - Continue antibiotics - Weight bearing status: as tolerated - Vascular surgery following. Discussed case with Dr. Wolf. Plan for possible angio under anesthesia on Tuesday. DISPO: Multiple surgical attempts have been made to salvage patients foot and have all been unsuccessful thus far. Her foot wound is dry, necrotic, and does not appear acutely infected. MRI negative for osteomyelitis. Will continue with local wound care as additional foot surgery (debridement or lisfranc amputation) is highly unlikely to heal. Discussed at bedside with patient. I did recommend a proximal amputation, however, she states she does not think she will ever be able to agree to this. Patient okay for d/c from podiatry standpoint. No podiatric surgical intervention planned unless perfusion to her foot is significantly improved. SUBJECTIVE: Patient seen at bedside today. Admits to pain in the right foot. Patient denies any nausea fever vomiting chills or any calf pain/chest pain, shortness of breath. OBJECTIVE: PHYSICAL EXAM: Vital Signs: BP 141/67 (BP Location: Right arm, Patient Position: Semi Fowlers) Pulse 82 Temp 98.2 ??F (36.8 ??C) (Oral) Resp 16 Ht 5' 2 (1.575 m) Wt 120 lb 11.2 oz (54.7 kg) SpO2 98% BMI 22.08 kg/m?? General : appears in no acute distress Skin: warm, dry and intact Head: normocephalic, without obvious abnormality, atraumatic Lungs: breathing unlabored Neurologic: sensation grossly normal, LE exam separate Extremities/Muscoskeletal: see focused exam LOWER EXTREMITY FOCUSED EXAM: Constitutional The patient is awake, alert, well developed, well-nourished and well groomed. No acute distress. Cardiovascular DP/PT pulses non palpable. Skin temperature is warm to cool proximal to distal with no focal calor noted. Edema absent to the bilateral LE. Neurologic Sensation intact to light touch. Protective sensation grossly intact. Dermatologic Dry, black, necrotic ulcer to the distal aspect of the left foot stump. No drainage noted. No surrounding erythema noted. Musculoskeletal Pain with palpation noted to left foot. Dacia Mills DPM SEP Podiatric Surgery 05/04/2025 * Marcell Aguirre MD - 05/03/2025 6:33 PM EDTAssociated Problem(s): Diabetic foot infection (HCC) Wound dehiscence over previous left TMA site ESR, CRP normal WBC not elevated, afebrile 05/03/2025 Discussed with podiatry MD, plan for MRI Hold abx * Marcell Aguirre MD - 05/03/2025 6:33 PM EDTAssociated Problem(s): S/P transmetatarsal amputation of foot, left (HCC) Wound dehiscence over previous left TMA site ESR, CRP normal WBC not elevated, afebrile 05/03/2025 Discussed with podiatry , plan for MRI Hold abx * Marcell Aguirre MD - 05/03/2025 6:33 PM EDTAssociated Problem(s): PAD (peripheral artery disease) History of angiogram 01/2025 Significant dz noted on u/s Vascular consult: plan for angio soon * Marcell Aguirre MD - 05/03/2025 6:33 PM EDTAssociated Problem(s): Paroxysmal atrial fibrillation (HCC) Heart rate controlled Resume Coreg, not on AC due to history of SAH * Marcell Aguirre MD - 05/03/2025 6:33 PM EDTAssociated Problem(s): Type 2 diabetes mellitus, without long-term current use of insulin (HCC) Cont well logging captain mud analysis metformin Refusing SSI * Marcell Aguirre MD - 05/03/2025 6:33 PM EDTAssociated Problem(s): Acute on chronic heart failure with preserved ejection fraction (HCC) Echo 2023 normal EF Compensated 05/03/2025 * Marcell Aguirre MD - 05/03/2025 6:33 PM EDTAssociated Problem(s): Hypertension associated with diabetes (HCC) Controlled * Marcell Aguirre MD - 05/03/2025 6:33 PM EDTAssociated Problem(s): Stage 3a chronic kidney disease (HCC) Baseline CR 0.9-1.2, stable * Marcell Aguirre MD - 05/03/2025 6:33 PM EDTAssociated Problem(s): 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 History of CABG, no chest pain * Marcell Aguirre MD - 05/03/2025 6:28 PM EDT Images from the original note were not included. Assessment and Plan Handoff Completed:Yes/No: Yes Disposition Perspective - Medically ready for discharge: No Anticipated ready for discharge timeframe?: 4-5 days Ready for discharge when / if?: vasc and podiatry ok Admitted on 04/30/2025: with: L TMA complication. Vascular plan for angio soon. Then podiatry will decide on plan Estimated Date of Discharge: 05/10/2025 Patient is not ready for discharge Estimated Date of Discharge: 05/10/2025 Assessment & Plan Diabetic foot infection (HCC) S/P transmetatarsal amputation of foot, left (HCC) Wound dehiscence over previous left TMA site ESR, CRP normal WBC not elevated, afebrile 05/03/2025 Discussed with podiatry MD, plan for MRI Hold abx PAD (peripheral artery disease) History of angiogram 01/2025 Significant dz noted on u/s Vascular consult: plan for angio soon Paroxysmal atrial fibrillation (HCC) Heart rate controlled Resume Coreg, not on AC due to history of SAH Type 2 diabetes mellitus, without long-term current use of insulin (HCC) Cont well logging captain mud analysis metformin Refusing SSI Chronic heart failure with preserved ejection fraction (HCC) Echo 2023 normal EF Compensated 05/03/2025 Primary hypertension Controlled Stage 3a chronic kidney disease (HCC) Baseline CR 0.9-1.2, stable 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 History of CABG, no chest pain CODE: FULL VTE Prophylaxis: Dispo: pending podiatry and vascular plan Subjective Very anxious about possibility of another amputation Review of Systems is normal except as noted above. Objective Vital Signs: BP 153/90 (BP Location: Right arm, Patient Position: Semi Fowlers) Pulse 88 Temp 98.4 ??F (36.9 ??C) (Oral) Resp 18 Ht 5' 2 (1.575 m) Wt 120 lb 11.2 oz (54.7 kg) SpO2 100% BMI 22.08 kg/m?? Temp (24hrs), Av.2 ??F (36.8 ??C), Min:97.9 ??F (36.6 ??C), Max:98.4 ??F (36.9??C) Physical Exam Vitals and nursing note reviewed. Constitutional: Appearance: She is well-developed. HENT: Head: Normocephalic and atraumatic. Eyes: General: Lids are normal. Cardiovascular: Rate and Rhythm: Normal rate and regular rhythm. Heart sounds: Normal heart sounds. No murmur heard. No friction rub. No gallop. Pulmonary: Effort: Pulmonary effort is normal. No respiratory distress. Breath sounds: Normal breath sounds. No wheezing or rales. Abdominal: General: Bowel sounds are normal. There is no distension. Palpations: Abdomen is soft. Tenderness: There is no abdominal tenderness. There is no guarding. Skin: General: Skin is warm and dry. Neurological: Mental Status: She is alert and oriented to person, place, and time. Psychiatric: Mood and Affect: Mood normal. Radiology/ Procedures/ Labs Pertinent imaging studies, procedures and labs were reviewed. Marcell Aguirre MD 05/03/2025 6:28 PM * Tenisah Wong, PT - 05/03/2025 8:51 AM EDT 05/03/25 0843 PT Subjective Note Type Evaluation Attempt Patient Room/Unit 3326 PT Subjective Comments #1 pt declines therapy and was frustrated and slightly agitated stating thatshe might get surgery and she can't get out of bed. Pt was educated on purpose of PT, benefits of mobility, and role of PT with rehab recs. Pt then closed eyes and stopped responding. Will follow up as able. Therapy delay reason Patient declined;Patient not feeling well Admitting Diagnosis pt is an 84 y.o. F admitted 04/30 for diabetic foot infection Past Med Hx a-fib, arthritis, CAD, CHF, DM, glaucoma, HTN, liver disease, PVD, CVA, L TMT (02/2025) Diagnostic Testing XR L Foot: no evidence of recurrent osteomyelitis; CXR: (-) acute finding Clinical Course vascular surgery c/s pending * Marcell Aguirre MD - 05/02/2025 5:52 PM EDTAssociated Problem(s): S/P transmetatarsal amputation of foot, left (HCC) Wound dehiscence over previous left TMA site ESR, CRP normal WBC not elevated 05/02/2025 Podiatry: plan pending vascular studies Hold abx * Marcell Aguirre MD - 05/02/2025 5:52 PM EDTAssociated Problem(s): Paroxysmal atrial fibrillation (HCC) Heart rate controlled Resume Coreg, not on AC due to history of SAH * Marcell Aguirre MD - 05/02/2025 5:52 PM EDTAssociated Problem(s): Type 2 diabetes mellitus, without long-term current use of insulin (HCC) Cont well logging captain mud analysis metformin Refusing SSI * Marcell Aguirre MD - 05/02/2025 5:52 PM EDTAssociated Problem(s): Acute on chronic heart failure with preserved ejection fraction (HCC) Echo 2023 normal EF Compensated 05/02/2025 * Marcell Aguirre MD - 05/02/2025 5:52 PM EDTAssociated Problem(s): Hypertension associated with diabetes (HCC) Controlled * Marcell Aguirre MD - 05/02/2025 5:52 PM EDTAssociated Problem(s): PAD (peripheral artery disease) History of angiogram 01/2025 Significant dz noted on u/s Vascular consult * Marcell Aguirre MD - 05/02/2025 5:52 PM EDTAssociated Problem(s): Stage 3a chronic kidney disease (HCC) Baseline CR 0.9-1.2, stable * Marcell Aguirre MD - 05/02/2025 5:52 PM EDTAssociated Problem(s): 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 History of CABG no chest pain * Marcell Aguirre MD - 05/02/2025 5:52 PM EDTAssociated Problem(s): Diabetic foot infection (HCC) Wound dehiscence over previous left TMA site ESR, CRP normal WBC not elevated 05/02/2025 Podiatry: plan pending vascular studies Hold abx * Marcell Aguirre MD - 05/02/2025 5:48 PM EDT Images from the original note were not included. Assessment and Plan Assessment & Plan Diabetic foot infection (HCC) S/P transmetatarsal amputation of foot, left (HCC) Wound dehiscence over previous left TMA site ESR, CRP normal WBC not elevated 05/02/2025 Podiatry: plan pending vascular studies Hold abx PAD (peripheral artery disease) History of angiogram 01/2025 Significant dz noted on u/s Vascular consult Paroxysmal atrial fibrillation (HCC) Heart rate controlled Resume Coreg, not on AC due to history of SAH Type 2 diabetes mellitus, without long-term current use of insulin (HCC) Cont well logging captain mud analysis metformin Refusing SSI Chronic heart failure with preserved ejection fraction (HCC) Echo 2023 normal EF Compensated 05/02/2025 Primary hypertension Controlled Stage 3a chronic kidney disease (HCC) Baseline CR 0.9-1.2, stable 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 History of CABG no chest pain CODE: FULL VTE Prophylaxis: PHARM VTE PROPH NON-CANDIDATE Dispo: pending podiatry, vascular plan Subjective Very nervous about losing her foot Review of Systems is normal except as noted above. Objective Vital Signs: BP 111/86 (BP Location: Left arm, Patient Position: Semi Fowlers) Pulse 88 Temp 98.6 ??F (37 ??C) (Oral) Resp 18 Ht 5' 2 (1.575 m) Wt 120 lb 11.2 oz (54.7 kg) SpO2 100% BMI 22.08 kg/m?? Temp (24hrs), Av.1 ??F (36.7 ??C), Min:97.7 ??F (36.5 ??C), Max:98.6 ??F (37 ??C) Physical Exam Vitals and nursing note reviewed. Constitutional: Appearance: She is well-developed. HENT: Head: Normocephalic and atraumatic. Eyes: General: Lids are normal. Cardiovascular: Rate and Rhythm: Normal rate and regular rhythm. Heart sounds: Normal heart sounds. No murmur heard. No friction rub. No gallop. Pulmonary: Effort: Pulmonary effort is normal. No respiratory distress. Breath sounds: Normal breath sounds. No wheezing or rales. Abdominal: General: Bowel sounds are normal. There is no distension. Palpations: Abdomen is soft. Tenderness: There is no abdominal tenderness. There is no guarding. Feet: Comments: S/p L TMA with dehiscence Skin: General: Skin is warm and dry. Neurological: Mental Status: She is alert and oriented to person, place, and time. Psychiatric: Mood and Affect: Mood normal. Radiology/ Procedures/ Labs Pertinent imaging studies, procedures and labs were reviewed. Marcell Aguirre MD 05/02/2025 5:48 PM * Tenisha Wong, PT - 05/02/2025 3:09 PM EDT 05/02/25 1508 PT Subjective Note Type Evaluation Attempt Patient Room/Unit 3326 PT Subjective Comments #1 pt declines therapy at this time stating she has had a long day. pt educated on importance of mobility while in the hospital and role of PT. PT will follow up as able. Others Present/Assisting family Therapy delay reason Patient/family request therapist return at later time;Patient declined Admitting Diagnosis pt is an 84 y.o. F admitted 04/30 for diabetic foot infection Precautions Therapy Precautions Yes Other precautions per podiatry, LLE WBAT * Spencer Dye - 05/02/2025 1:33 PM EDT 05/02/25 1200 Patient Assessment Patient Appears Tearful;Expressed discomfort (Pt w/tleft toes amputation. Pt reports she has been in and out of rehab so much ) Patient Restorationist Upon Assessment Pentecostal Spiritual Strengths and Coping Resources Spends time in prayer/spiritual practices;Sense of security from belief system (Pt states that she knows without a shady or doubt that God is with me. I can feel his presence .) Spiritual and Emotional Concerns Appears anxious;Fear;Grief/loss;Processing decrease in mobility and independence Patient Spiritual Wellbeing Moderate Acuity - Spiritual Distress (Pt is tearful/fear her foot might be amputated due to infection.) Interventions with Patient Relationship Building Interventions Listened empathetically (Pt shared she had three sons but lost youngest eight yrs ago.) Samaritan Interventions Prayer with patient or family (Pt states that she knows without a shady or doubt that God is with me. I can feel his presence . Pt less anxious after prayer support.) Empowerment Interventions Encouraged focus on present Outcomes Expressed Outcomes Met spiritual needs;Appreciative of prayer/ritual;Able to discuss emotions;Able to explore grief;Distress reduced;Decreased anxiety Care Plan Plan for Follow-Up Hand Stemmer(s) will continue to follow throughout admission * Mel Hurd MSW - 05/02/2025 9:59 AM EDT 05/02/25 0900 Assessment Complete Actual Discharge Plan 05/02/25 SW update: Pt was admitted from [facility]. Referral was sent to [facility] in [facility] per pt's request; NORA spoke with Grisel at [facility] regarding referral. Grisel informed SW pt was at [facility] last month and they sent pt to [facility] b/c pt needed a lower level of therapy. Pt will need PT consult for recommendations and to see if pt needs acute rehab. MD notified and PT eval pending. NORA will follow up with pt and pt's family, as well as [facility] once PT eval completed and recs are made. SW following. * Marcell Aguirre MD - 05/01/2025 5:56 PM EDTAssociated Problem(s): Diabetic foot infection (HCC) Wound dehiscence over previous left TMA site ESR, CRP, WBC not elevated Podiatry: does not appear infected Hold abx * Marcell Aguirre MD - 05/01/2025 5:56 PM EDTAssociated Problem(s): S/P transmetatarsal amputation of foot, left (HCC) Wound dehiscence over previous left TMA site ESR, CRP, WBC not elevated Podiatry: does not appear infected Hold abx * Marcell Aguirre MD - 05/01/2025 5:56 PM EDTAssociated Problem(s): Paroxysmal atrial fibrillation (HCC) Heart rate elevated on arrival improving Resume Coreg, not on AC due to history of SAH * Marcell Aguirre MD - 05/01/2025 5:56 PM EDTAssociated Problem(s): Acute on chronic heart failure with preserved ejection fraction (HCC) Echo 2023 normal EF Compensated * Marcell Aguirre MD - 05/01/2025 5:56 PM EDTAssociated Problem(s): Hypertension associated with diabetes (HCC) Controlled * Marcell Aguirre MD - 05/01/2025 5:56 PM EDTAssociated Problem(s): PAD (peripheral artery disease) History of angiogram 01/2025 * Marcell Aguirre MD - 05/01/2025 5:56 PM EDTAssociated Problem(s): Stage 3a chronic kidney disease (HCC) Baseline CR 0.9-1.2, stable * Marcell Aguirre MD - 05/01/2025 5:56 PM EDTAssociated Problem(s): 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 History of CABG no chest pain * Marcell Aguirre MD - 05/01/2025 5:56 PM EDTAssociated Problem(s): Type 2 diabetes mellitus, without long-term current use of insulin (HCC) Cont well logging captain mud analysis metformin Refusing SSI * Marcell Aguirre MD - 05/01/2025 5:52 PM EDT Images from the original note were not included. Assessment and Plan Assessment & Plan Diabetic foot infection (HCC) S/P transmetatarsal amputation of foot, left (HCC) Wound dehiscence over previous left TMA site ESR, CRP, WBC not elevated Podiatry: does not appear infected Hold abx Paroxysmal atrial fibrillation (HCC) Heart rate elevated on arrival improving Resume Coreg, not on AC due to history of SAH Type 2 diabetes mellitus, without long-term current use of insulin (HCC) Cont well logging captain mud analysis metformin Refusing SSI Chronic heart failure with preserved ejection fraction (HCC) Echo 2023 normal EF Compensated Primary hypertension Controlled PAD (peripheral artery disease) History of angiogram 01/2025 Stage 3a chronic kidney disease (HCC) Baseline CR 0.9-1.2, stable 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 History of CABG no chest pain CODE: FULL VTE Prophylaxis: PHARM VTE PROPH NON-CANDIDATE Dispo: pending med course Subjective Some pain around the prior TMA site Review of Systems is normal except as noted above. Objective Vital Signs: BP 108/55 (BP Location: Left arm, Patient Position: Lying right side) Pulse 84 Temp 97.5 ??F (36.4 ??C) (Oral) Resp 16 Ht 5' 2 (1.575 m) Wt 120 lb 11.2 oz (54.7 kg) SpO2 98% BMI 22.08 kg/m?? Temp (24hrs), Av.4 ??F (36.3 ??C), Min:97.3 ??F (36.3 ??C), Max:97.5 ??F (36.4 ??C) Physical Exam Vitals and nursing note reviewed. Constitutional: Appearance: She is well-developed. HENT: Head: Normocephalic and atraumatic. Eyes: General: Lids are normal. Cardiovascular: Rate and Rhythm: Normal rate and regular rhythm. Heart sounds: Normal heart sounds. No murmur heard. No friction rub. No gallop. Pulmonary: Effort: Pulmonary effort is normal. No respiratory distress. Breath sounds: Normal breath sounds. No wheezing or rales. Abdominal: General: Bowel sounds are normal. There is no distension. Palpations: Abdomen is soft. Tenderness: There is no abdominal tenderness. There is no guarding. Feet: Comments: S/p L TMA Skin: General: Skin is warm and dry. Neurological: Mental Status: She is alert and oriented to person, place, and time. Psychiatric: Mood and Affect: Mood normal. Radiology/ Procedures/ Labs Pertinent imaging studies, procedures and labs were reviewed. Marcell Aguirre MD 05/01/2025 5:52 PM * Yajaira Canseco RN - 05/01/2025 5:46 PM EDT PT declined insulin at this time. Blood glucose reads 188 and per DEC the patient should receive 2 units of insulin but the patient states that any time she takes sub Q insulin her blood glucose drops to dangerous levels and she begins to feel bad. Pt states that her blood glucose is normally controlled with oral medication at home. MD notified of refusal. * Cely Gottlieb RD,LD - 05/01/2025 3:46 PM EDT [facility] Nutrition Malnutrition Assessment Evidence Supported Diagnosis: No malnutrition identified Nutrition Prescription: Kcals: [id number] kcal (25-30 kcal/kg) Protein (g): 65-82 gm Protein needs based on: 1.2-1.5 gm/kg Fluid (ml): 1 ml/kcal or per MD Plan/Interventions: Meals and Snacks: Regular Medical Food Supplements: Cristine, Glucerna Therapeutic Medical Food/Supplement Freq: BID Nutrition-Related Medication Management: Novolog med dose alg, protonix Nutrition Education: Supplements, Increased nutrients for wound healing Nutrition Discharge Instructions: Continue to eat foods high in protein. Continue to drink protein shakes 1-2x per day for additional protein. Skyler Bautista is a 84 y.o. female patient. Admit Diagnosis: Wound dehiscence [T81.30XA] Reason For Assessment: Admission nutrition screen Subjective: Subjective Comment: Pt with nutrition screen score of 4. No consult received. Pt visited. Reports agood appetite and eating well. Discussed wt loss reported and she states that her weight is always up and down. Not concerned about her weight loss. Discussed importance of protein for wound healing. Pt agreeable to Glucerna and Cristine during previous admissions and is agreeable this admission as well. Will order and monitor. Anthropometric Measurements: Height: 5' 2 (157.5 cm) Weight: 120 lb (54.4 kg) BMI (Calculated): 21.95 BMI Assessment: 18.5-24.9 Normal IBW +/- 10%: 110 lb (49.9 kg) % IBW: 109 Weight History Intervals: 3 Month;12 Month 3 Month--Wt History (lb): 128 lb (58.1 kg) 3 Month--Wt Change (lb): 8 3 Month--% Wt Change: 6.25 % 3 Month--Wt Gain or Loss: Loss 3 Month--Wt Loss Significance: Not significant 12 Month--Wt History (lb): 122 lb (55.3 kg) (~11 months 06/04/24) 12 Month--Wt Change (lb): 2 12 Month--% Wt Change: 1.64 % 12 Month--Wt Gain or Loss: Loss 12 Month--Wt Loss Significance: Not significant Other (Comment): Wt appears mostly stable Food/Nutrition Related History: Dietary Orders Ordered Regular Diet DIET EFFECTIVE NOW 05/01/25 1420 GLUCERNA Therapeutic oral supplement 1 'box' Oral BID with Meals CRISTINE powder oral supplement 1 Packet Oral BID Food Insecurity Within the past 12 months, you worried that your food would run out before you got the money to buymore.: Never true Within the past 12 months, the food you bought just didn't last and you didn't have money to get more.: Never true % Avg Meals Consumed: (establishing) Tube Feeding?: No TPN?: No Food Allergies: NKFA Chewing Difficulty: Other (comment) (poor dentition noted) Swallowing Difficulty: Other (comment) Nutrition Focused Physical Findings: Physical Exam?: Yes Subcutaneous Fat Loss--Orbital: Mild Subcutaneous Fat Loss--Buccal (Cheek): Well-nourished Subcutaneous Fat Loss--Triceps: Well-nourished Subcutaneous Fat Loss--Thoracic/Lumbar: Well-nourished Muscle Loss--Temporalis : Well-nourished Muscle Loss--Clavicle Pectoralis/Trapezius: Mild Muscle Loss--Clavicle and Acromion (Shoulder): Mild Muscle Loss--Scapula: Well-nourished Muscle Loss--Interosseous: Well-nourished Muscle Loss--Patellar: Well-nourished Muscle Loss--Quadricep: Well-nourished Muscle Loss--Gastrocnemius (Calf): Well-nourished Functional Status: Suboptimal (some decline) LDAs- Active NG/OG/NJ,Wound,Pressure Injury,or Drain Wound Duration Incision/Wound Amputation Foot Left 1 day Incision/Wound Skin tear Hand Posterior;Right 1 day I/O last 3 completed shifts: In: 672.6 [I.V.:68.5; IV Piggyback:604.1] Out: - Edema: Abdomen: Abdominal/GI When was last BM? (Date): 05/01/25 Stool Assessment: Stool Occurrence: 1 Stool Appearance: Type 5 [place] Stool Chart Stool Color: Michael Stool Amount: Smear Biochemical Data/Medical Tests: Pertinent Meds: Novolog med dose alg, protonix Pertinent Labs: H/H low, BUN 33, Ca 8.3 Pertinent Medical Tests/Procedures: left TMA recently 03/09 followed by revision 03/17 Pertinent Medical History: DM, HTN, CHF, liver disease, HLD, stroke, CAD, CKD, CABG Clinical Course: Clinical Course: Pt admitted w/ L TMA dehiscence. * Rosario Izaguirre MSW - 05/01/2025 3:11 PM EDT 05/01/25 1500 Discharge Planning Evaluation Completed by CC/NORA Yes Referral Source Chart review Does patient meet high risk triggers? Is patient high risk of readmission on predictive analytic orRRS score Who you interviewed In person interview with patient Mental Status Alert and oriented Decision Maker Patient Who does pt identify as their caregiver/support person who will be their active partner in the dc planning process Pt identified caregiver/support person for dc planning process Caregiver Name Adriana Smith Sister Caregiver Activities of Daily Living Prior to Admission Needs assistance with Homemaking;Needs assistance with mobility;Needs assistance with ADLS DME Used at Home Walker;Cane;Wheelchair Wheelchair type Manual Walker type 2 wheel Patient's Living Arrangments Prior to Admission? Acute Rehabilitation Care Facility Name [facility] Support Systems Children;Family Members Is PCP listed on facesheet correct? No Who does patient report as PCP? Was seeing a Gloria Fitzgerald Quality of Support System Good Follow Up Assigned To: Referral not needed concern identified and addressed by Ends Breakage Clerk Anticipated post-acute care needs Acute Rehabilitation Facility Repisodic List provided N/A - Resumption care. Patient active with post acute partner prior to admission Actual Discharge Plan 05/01/2025 NORA Initial: NORA spoke with pt at bedside. Pt alert and oriented x 3 and reports needing some assistance currently ADLs due to her recent TMA. Pt reports she admitted from [facility] and would like to go back to finish rehab. Resumption of care referral sent. Pt stated that prior to rehab and being in the hospital, she had been staying with her sister. Pt reports [facility] was working with her using a 2WW and cane. Reports she also has a WC at her sisters. Pt reports sister will transport her. Pt repors she was seeing a PCP through [facility]? and now using [facility] on [address] Pt reports no affordability issues. No other issues reported at this time. Podiatry following. SW following * Laura Landis, PharmD - 05/01/2025 9:48 AM EDT Pharmacy Consult: Vancomycin S: Skyler Bautista is an 84 y.o. female with left foot wound dehiscence and concern for left diabetic foot infection s/p TMA on 03/09/25 and revision on 03/17/25. Allergies: Lidocaine. Day 2 of pharmacy managed vancomycin therapy. Antimicrobial Summary: - Vancomycin (04/30 - ) - Cefepime (04/30 - ) - Metronidazole (04/30 - ) O: Most Recent Labs: Temp Min: 97.3 ??F (36.3 ??C) Max: 97.6 ??F (36.4 ??C) Recent Labs 04/30/25 1715 05/01/25 0621 05/01/25 0757 WBC 5.1 -- 3.7 BUN 36* 33* -- CREATININE 1.05 0.97 -- Estimated Creatinine Clearance: 36.6 mL/min (by C-G formula based on SCr of 0.97 mg/dL). Recent Labs 04/30/25 1715 PROCLCTNIN <0.05 Recent Labs 04/30/25 1715 04/30/25 1930 LACTA 2.3* 1.3 Recent Labs 04/30/25 1715 CRP <3.00 I/O last 3 completed shifts: In: 532.2 [I.V.:50.6; IV Piggyback:481.7] Out: - I/O this shift: In: 140.4 [I.V.:18; IV Piggyback:122.4] Out: - Height: 5' 2 (157.5 cm) Weight: 120 lb 11.2 oz (54.7 kg) Imagin/15 XR L Foot: IMPRESSION: No radiographic evidence of recurrent osteomyelitis. Culture & Sensitivities: - Blood Cx x 2: In process A/P: - Physician orders and progress notes reviewed. Podiatry has been consulted. - Patient's renal function is stable. - Will continue current therapy with vancomycin 500 mg IV every 24 hours. - This dosing regimen is estimated to result in a predicted AUCss of 426 mg*hr/L; goal AUC is 400 -600. - Vancomycin AUC1 to be collected tomorrow 05/02 @ 0600 with am labs. - Vancomycin AUC2 to be collected 05/02 @ 1100: prior to the 3rd dose. - Other labs: BMP daily x 3. Pharmacy will continue to follow patient for changes in renal function, efficacy, and signs of toxicity. Thank you, Laura Landis, KellD * Rebecca Box RN - 05/01/2025 8:16 AM EDT WOUNDCARE: Consult received as part of 'Cavilon Advanced Skin Protectant' product trial. Wound care will not see or follow this patient, for this consult. If wounds or other areas of concern are noted, please place additional consult. Thank you! * Nayana Paez RN - 05/01/2025 12:54 AM EDT Patient arrived on unit and 4 Eyes Skin Assessment within 4 hours completed with criselda Villalobos RN Srinivasan Score: 19 Devices Removed/ Reapplied for Skin Assessment Yes Wound Present of Arrival: Yes No - Yes Explain: Yes, L TMA Wound LDAs Wound Duration Incision/Wound Amputation Foot Left 1 day Initiate prevention protocol and Consult wound care Dietary Orders Ordered NPO: Wth Meds and Ice Chips DIET EFFECTIVE MIDNIGHT 04/30/252046 Comments: Yes, pt A&Ox4, VSS, oriented to room, introduced self and role, 4 eye skin assessmentcompleted, complaints of pain in L foot, see MAR. L foot TMA, incision black, small yellowish drainage, and rates 10/10 pain. Cavillon applied to heels, coccyx, and elbows for prevention, WC c/s to follow Cavillon. Skin tear noted on R hand, band aid peeled back for assessment and reapplied * Rajendra Petty MD (Ronny) - 04/30/2025 11:26 PM EDTAssociated Problem(s): Paroxysmal atrial fibrillation (HCC) Heart rate elevated on arrival improving Resume Coreg, not on AC due to history of SAH * Rajendra Petty MD (Ronny) - 04/30/2025 11:26 PM EDTAssociated Problem(s): Hypertension associated with diabetes (HCC) Controlled * Rajendra Petty MD (Ronny) - 04/30/2025 8:21 PM EDTAssociated Problem(s): Diabetic foot infection (HCC) Wound dehiscence over previous left TMA site Vancomycin, cefepime, Flagyl Podiatry consult n.p.o. [place] * Rajendra Petty MD (Ronny) - 04/30/2025 8:21 PM EDTAssociated Problem(s): Acute on chronic heart failure with preserved ejection fraction (HCC) Echo 2023 normal EF Compensated * Rajendra Petty MD (Ronny) - 04/30/2025 8:21 PM EDTAssociated Problem(s): PAD (peripheral artery disease) History of angiogram 01/2025 * Rajendra Petty MD (Ronny) - 04/30/2025 8:21 PM EDTAssociated Problem(s): Stage 3a chronic kidney disease (HCC) Baseline CR 0.9-1.2, stable * Rajendra Petty MD (Ronny) - 04/30/2025 8:21 PM EDTAssociated Problem(s): S/P transmetatarsal amputation of foot, left (HCC) Noted * Rajendra Petty MD (Ronny) - 04/30/2025 8:21 PM EDTAssociated Problem(s): 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 History of CABG no chest pain * Aleena Kyle PharmD - 04/30/2025 6:04 PM EDT Pharmacy Consult - Vancomycin AUC S: Skyler Bautista is a(n) 84 y.o. female with concern for L diabetic foot infection s/p TMA 03/09/2025. Allergies: Lidocaine Pharmacy consulted to manage vancomycin therapy. Other antimicrobials include: cefepime (04/30- ) metronidazole (04/30- ) O: Most Recent Labs: Temp Min: 97.6 ??F (36.4 ??C) Max: 97.6 ??F (36.4 ??C) Recent Labs 04/30/25 1715 WBC 5.1 BUN 36* CREATININE 1.05 Recent Labs 04/30/25 1715 LACTA 2.3* No intake/output data recorded. No intake/output data recorded. Height: 5' 2 (157.5 cm) Weight: 117 lb (53.1 kg) Culture & Sensitivities: No results found for this visit on 04/30/25 (from the past 2 weeks). Imaging: No results found. Patient's initial estimated kinetic parameters based on AUC kinetics: - CrCl = 32.8 mL/min - Ke = 0.0316 hr^-1 - Half-life = 21.94 hr A/P: Physician orders and progress notes reviewed. Patient???s renal function is stable; baseline Scr is ~0.8-0.9. Will initiate vancomycin therapy with a 1,000 mg (~20 mg/kg) loading dose, followed by a maintenance dose of 500 mg (~10 mg/kg) every 24 hours. This dosing regimen is estimated to result in a predicted AUCss of 426 mg*hr/L; Goal AUC is 400-600. Will check levels on 05/02 between the 2nd and 3rd dose. Patient has also been started on cefepime 2 gm IVP x 1 dose, then cefepime IV every 12 hours. Pharmacy will follow patient for changes in renal function, efficacy, and signs of toxicity. Other labs: BMP in AM. Thank you, Aleena Kyle, Pharm.D. documented in this encounter H&P Notes * Rajendra Petty MD (Ronny) - 04/30/2025 8:15 PM EDT Images from the original note were not included. SEP HOSPITALIST H&P Name: Skyler Bautista : 1940 AGE: 84 y.o. CC: Chief Complaint Patient presents with Wound Dehiscence Pt presents per ems from [facility], toes amputated on left foot, here for wound check. HPI: Skyler Bautista is a 84 y.o. female with PMH of PVD, history of left TMA recently 03/09 followed by revision 03/17, history of osteomyelitis of great toe. Presents for evaluation of left foot wound dehiscence happened about 4 days ago significant pain 10/10 associated with greenish-yellowish discharge from surgical wound site. No fever chills Workup X-ray left foot no osteo No white count, CRP and lactic negative elevated lactic acid downtrending So far afebrile VSS CXR NAF EKG sinus tachycardia versus a flutter Patient started on cefepime Flagyl and vancomycin ALLERGIES: Allergies Allergen Reactions Lidocaine Rash HOME MEDS: Prior to Admission medications Medication Sig Start Date End Date Taking? Authorizing Provider acetaminophen (TYLENOL) 500 mg Oral Tablet Take 1,000 mg by mouth every 8 hours. 03/23/24 Provider, Historical ALPRAZolam (XANAX) 0.5 mg Oral Tablet Take 0.5 mg by mouth daily. 12/25/18 Provider, Historical atorvastatin (LIPITOR) 40 mg Oral Tablet Take 40 mg by mouth nightly. Provider, Historical Calcium Carbonate (ANTACID ULTRA STRENGTH) 400 mg calcium (1,000 mg) Oral Tablet, Chewable Take 1,000 mg by mouth daily. 03/23/24 Provider, Historical carvediloL (COREG) 12.5 mg Oral Tablet Take 1 Tablet by mouth 2 times daily. 03/20/25 Bradley Arndt I, Cholecalciferol, Vitamin D3, 50 mcg (2,000 unit) Oral Capsule Take by mouth daily. Provider, Historical cyanocobalamin 1,000 mcg Oral Tablet Take 1,000 mcg by mouth daily. Provider, Historical dorzolamide-timoloL (COSOPT) 22.3-6.8 mg/mL Opht Drops Apply 1 Drop to eye. 05/21/24 05/21/25 Provider,Historical fUROsemide (LASIX) 40 mg Oral Tablet Take 40 mg by mouth daily. Provider, Historical gabapentin (NEURONTIN) 300 mg Oral Capsule Take 1 Capsule by mouth nightly. 02/13/25 Dacia Mills DPM latanoprost (XALATAN) 0.005 % Opht Drops Apply 1 Drop to eye nightly. 12/21/23 05/21/25 Provider, Historical lidocaine (LIDODERM) 5 % Top Adhesive Patch, Medicated Apply 1 Patch topically. 03/24/24 Provider, Historical nalOXone (NARCAN) 4 mg/actuation Nasl [place], Non-Aerosol 0.1 mL by Nasal route as needed for OpioidReversal. [place] the contents of one device (0.1mL) into one nostril upon signs of opioid overdose. Call 911. May repeat dose in other nostril if no response within 2-3 minutes. 02/04/25 Flaco Caban MD nalOXone (NARCAN) 4 mg/actuation Nasl [place], Non-Aerosol 0.1 mL by Nasal route as needed for OpioidReversal. [place] the contents of one device (0.1mL) into one nostril upon signs of opioid overdose. Call 911. May repeat dose in other nostril if no response within 2-3 minutes. 02/04/25 Flaco Caban MD pantoprazole (PROTONIX) 40 mg Oral Tablet, Delayed Release (E.C.) Take 1 Tablet by mouth daily. 02/04/25 Flaco Caban MD polyethylene glycol (GLYCOLAX, MIRALAX) 17 gram Oral Powder in Packet Take 17 g by mouth daily. 01/27/24 Provider, Historical ranolazine (RANEXA) 500 mg Oral Tablet Sustained Release 12 hr Take 1,000 mg by mouth daily. 12/25/18 Provider, Historical PMH: Past Medical History: Diagnosis Date A-fib (HCC) Arthritis Blood circulation, collateral CAD (coronary artery disease) Cardiac dysrhythmia Carotid artery occlusion CHF (congestive heart failure) (HCC) Diabetes mellitus (HCC) not currently on meds,rehab discontued Difficult intravenous access possible use of iv therapy/ultrasound to help with venous access. RIVERA (dyspnea on exertion) Encounter for blood transfusion Fatty liver Glaucoma Heartburn Hyperlipidemia Hypertension Liver disease Mixed hyperlipidemia Peripheral vascular disease Renal disorder Renal insufficiency Shortness of breath Sleep apnea pt has cpap, but is not using. Stroke (HCC) pt's states around 3 years ago. Urinary incontinence Urinary tract infection SURGICAL HX: Past Surgical History: Procedure Laterality Date ABDOMEN SURGERY CARDIAC CATHETERIZATION CARDIAC SURGERY CABG/stents FOOT SURGERY Left 03/09/2025 Transmetatarsal amputation of the left foot; Surgeon: Dacia Mills DPM; Location: [facility]; Service: Podiatry FOOT SURGERY Left 03/17/2025 left transmetatarsal amputation revision; Surgeon: Irineo Perez DPM; Location: [facility]; Service: Podiatry HYSTERECTOMY IR ANGIOGRAM EXTREMITY LEFT 01/30/2025 IR ANGIOGRAM EXTREMITY LEFT 01/30/2025 Lawrence Wolf MD [facility] IR ANGIOGRAM FEMORAL ARTERIO SHIFT 01/17/2025 IR ANGIOGRAM FEMORAL ARTERIO SHIFT 01/17/2025 Lawrence Wolf MD [facility] IR REVAS FEM POP ART UNILAT W QUALITY CONTROL ASSOCIATE 01/30/2025 IR REVAS FEM POP ART UNILAT W QUALITY CONTROL ASSOCIATE 01/30/2025 Lawrence Wolf MD [facility] IR ULTRASOUND GUIDED VASCULAR ACCESS 01/17/2025 IR ULTRASOUND GUIDED VASCULAR ACCESS 01/17/2025 Lawrence Wolf MD [facility] IR ULTRASOUND GUIDED VASCULAR ACCESS 01/30/2025 IR ULTRASOUND GUIDED VASCULAR ACCESS 01/30/2025 Lawrence Wolf MD [facility] JOINT REPLACEMENT TOE SURGERY Left 01/31/2025 Left foot hallux amputation; Surgeon: Dacia Mills DPM; Location: [facility]; Service: Podiatry FHX: Family history reviewed. Pertinent history as listed in HPI. No family history on file. SOCIAL HX: Social History Tobacco Use Smoking status: Former Current packs/day: 0.00 Types: Cigarettes Quit date: 1991 Years since quittin.5 Passive exposure: Past Smokeless tobacco: Never Substance Use Topics Alcohol use: Not Currently Past Med, SH and FH reviewed Review of Systems Respiratory: Negative for cough and hemoptysis. Cardiovascular: Negative for chest pain and palpitations. Gastrointestinal: Negative for abdominal pain, diarrhea and vomiting. Neurological: Negative for dizziness and headaches. Psychiatric/Behavioral: Negative for depression, substance abuse and suicidal ideas. All other ROS neg Physical Exam Cardiovascular: Rate and Rhythm: Normal rate and regular rhythm. Pulmonary: Effort: Pulmonary effort is normal. Breath sounds: Normal breath sounds. Musculoskeletal: Comments: Surgical wound dehiscence noted scant amount of greenish discharge there does not appear to be any erythema that is spreading proximally pulses were good and intact. Neurological: General: No focal deficit present. Mental Status: She is alert and oriented to person, place, and time. Vitals: 04/30/25 2200 BP: 127/64 Pulse: 99 Resp: 16 Temp: 97.3 ??F (36.3 ??C) SpO2: 98% Radiology/ Procedures/Labs: Pertinent imaging and laboratory studies were reviewed. ACTIVE PROBLEM LIST: Active Hospital Problems Diagnosis *Diabetic foot infection (HCC) S/P transmetatarsal amputation of foot, left (HCC) Stage 3a chronic kidney disease (HCC) PAD (peripheral artery disease) Chronic heart failure with preserved ejection fraction (HCC) Paroxysmal atrial fibrillation (HCC) 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 Primary hypertension ASSESSMENT/ PLAN: Assessment & Plan Diabetic foot infection (HCC) Wound dehiscence over previous left TMA site Vancomycin, cefepime, Flagyl Podiatry consult n.p.o. [place] Paroxysmal atrial fibrillation (HCC) Heart rate elevated on arrival improving Resume Coreg, not on AC due to history of SAH Primary hypertension Controlled Chronic heart failure with preserved ejection fraction (HCC) Echo 2023 normal EF Compensated PAD (peripheral artery disease) History of angiogram 01/2025 Stage 3a chronic kidney disease (HCC) Baseline CR 0.9-1.2, stable S/P transmetatarsal amputation of foot, left (HCC) Noted 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 History of CABG no chest pain Anemia/thrombocytopenia Chronic hemoglobin better from recent priors Vancomycin is a high risk medication requires close 24/7 continuous observation and monitoring. Vancomycin levels and kidney function will be closely followed VTE Prophylaxis: SCDs FEN: REGULAR DIET NPO DIET Dispo: Condition requiring admission to inpatient for further management. Code Status: Full Code Note generated via voice dictation please excuse any unintended spelling errors.. Rajendra Browning) MD Malinda documented in this encounter Procedure Notes * Lawrence Wolf MD - 05/24/2025 12:35 PM EDT Images from the original note were not included. OPERATIVE NOTE PATIENT NAME: Skyler Bautista MR #: [id number] : 1940 DATE: 05/24/2025 SURGEON: LAWRENCE WOLF MD CYTOLOGY SUPERVISOR: see op log ANESTHESIA: General PREOPERATIVE DIAGNOSES: non-salvageable L foot POSTOPERATIVE DIAGNOSES: Same PROCEDURE PERFORMED: Left above knee amputation. ESTIMATED BLOOD LOSS: 200 mL SPECIMEN(S) REMOVED: left LE PATIENT CONDITION: Stable to recovery room. GROSS FINDINGS: Good bleeding noted from the the skin, subcutaneous tissues and muscles. No skin necrosis, cyanosis, or tension noted after the closure. INDICATIONS: The patient is a 84 y.o. female with a PMHx significant for PAD s/p LLE angiogram withPTA of popliteal artery, TPT and peroneal arteries s/p L TMA who presented with necrosis and dehiscence of L TMA. Patient underwent a LLE angiogram. Ultimately, the left lower extremity was found to be non- salvageable.Patient was offered a left AKA. The pros and cons of undergoing this procedure including the risks of bleeding, infection and risk of post operative GA and hematomata and need for further debridement and amputation were discussed with the patient and family. The patient and familyvoiced understanding of the risks and benefits and elected to proceed. Informed consent was signed. PROCEDURE DETAILS: The patient was brought into the operating room and placed on the operating table in supine position. Patient was placed under general anesthesia. A Garrido catheter was inserted. l The left lower extremity was then prepped and draped in a standard sterile fashion. Using a marking pen, the incision was marked approximately one hand width above the knee joint in a fish- mouth fashion. Using a #10 blade, skin incision was made along the marked line. Electrocautery was utilized to dissect subcutaneous tissue and obtain hemostasis. The fascia was incised and dissection was carried down through the muscles. In the medial thigh, the superficial femoral artery and femoral vein were dissected. The artery and vein were double ligated proximally with 2-0 silk suture and distally with 2-0 silk ties and then the artery and vein were transected. The muscle around the femur was circumferentially dissected. A periosteal elevator to clean off the bone circumferentially. The femur was transected proximal to the most proximal extent of the incision using a power saw. A separate instrument was used to transect the femur pat. The amputation knife was used to transect the muscle and tissue posterior to the bone. The lower leg was then passed off the field. The edges of the bone and pat was smoothed out using a file and saw. The amputation site was irrigated with copious amount of antibiotic solution. Complete hemostasis obtained with 2-0 silk sutures and electrocautery. The tissue around the transected femur was closed with an 0 vicryl suture to obtain coverage. The muscles were loosely approximated around the bone with another 0 vicryl. The fascia was closed with interrupted 0 vicryl suture in interrupted fashion. The dermis was approximated with 3-0 Vicryl sutures. The skin was then closed with noelle. The amputation site was cleaned and dried. Xeroform gauze was placed on the incision, followed by a sterile dressings. Kerlex and RAQUEL was applied. The patient was extubated in the operating room, and transferred to PACU in a stable condition. Thepatient tolerated well without any complication. All the counts for sponges, needles and instruments were correct. IMPRESSION: Technically successful left AKA. Patient is to continue medical therapy with PT/OT postop. Vascular will remove dressing on POD #2. Signed: Lawrence Wolf MD * Lawrence Wolf MD - 05/24/2025 11:52 AM EDT [facility] OPERATIVE/PROCEDURE NOTE Skyler Bautista May 24, 2025 Body mass index is 21.95 kg/m??. PRE-OP DIAGNOSIS: PAD (peripheral artery disease) [I73.9] Critical limb ischemia of left lower extremity (HCC) [I70.222] POST-OP DIAGNOSIS: PAD (peripheral artery disease) [I73.9]Critical limb ischemia of left lower extremity (HCC) [I70.222] PROCEDURE(S): Left Above Knee Amputation SURGEON(S): Surgeons and Role: * Lawrence Wolf MD - Primary CYTOLOGY SUPERVISOR(S): see op log ANESTHESIA: General w/Block SPECIMENS: ID Type Source Tests Collected by Time Destination 1 : Left Leg and knee Tissue Leg, Left PATHOLOGY TISSUE REQUEST Lawrence Wolf MD 05/24/2025 0841 ESTIMATED BLOOD LOSS (mls): 200 ml *EBL MUST be documented as a numeric value DISPOSITION/POST PROC COURSE: PACU, floor Lawrence Wolf MD Date: 05/24/2025 * Lawrence Wolf MD - 05/10/2025 2:15 PM EDT Images from the original note were not included. ANGIOGRAPHY REPORT PATIENT NAME: Skyler Bautista MR #: [id number] : 1940 DATE OF PROCEDURE: 05/10/2025 PREOPERATIVE DIAGNOSES: LLE critical limb ischemia, History of L TMA, PAD POSTOPERATIVE DIAGNOSES: Same PROCEDURE PERFORMED: 1. US guided access of the right common femoral artery 2. Abdominal aortogram. Selection of L SFA via R COMPLIANCE PARALEGAL (3rd order) with left lower extremity angiogram. Selection of QUALITY CONTROL ASSOCIATE with additional angiogram. Radiographic supervision and interpretation 3. RLE angiogram. Radiographic supervision and interpretation Mynx closure of 5 Fr arteriotomy SURGEON: Lawrence Wolf MD ANESTHESIA: General anesthesia FLUOROSCOPY: Dose: 309 mGy, Time: 27.6 min CONTRAST: 68 ml ESTIMATED BLOOD LOSS: 5 mL SPECIMENS: None COMPLICATIONS: None FINDINGS: Access site was patent with stenosis. AORTA: Widely patent infrarenal aorta and bilateral renal arteries. RIGHT ILIAC ARTERIES: Widely patent common, internal and external iliac arteries. RIGHT FEMORAL ARTERIES: Patent common femoral artery with significant stenosis, patent profunda artery and patent SFA with severe focal stenosis of ostium and distal segment RIGHT POPLITEAL ARTERY: patent with multifocal mild and moderate stenosis RIGHT TIBIAL ARTERIES: DAREN with multifocal severe stenosis (possible short segment occlusion vs critical stenosis in proximal DAREN) and occluded distally at ankle, occluded TPT and peroneal artery, reconstitution of proximal QUALITY CONTROL ASSOCIATE with mid and distal QUALITY CONTROL ASSOCIATE with multifocal severe stenosis of proximal andmid QUALITY CONTROL ASSOCIATE but occluded distally without reconstitution. Significant small vessel disease in R foot LEFT ILIAC ARTERIES: Widely patent common, internal and external iliac arteries. LEFT FEMORAL ARTERIES: patent common femoral artery with moderate stenosis. Patent superficial femoral and profunda arteries without flow-limiting stenosis LEFT POPLITEAL ARTERY: Patent popliteal artery with mod-severe stenosis LEFT TIBIAL ARTERIES: Patent DAREN with multifocal severe stenosis but occluded just proximal to the ankle without reconstitution. Patent TPT with severe stenosis, patent proximal and mid QUALITY CONTROL ASSOCIATE with multifocal severe stenosis, patent peroneal artery Significant small vessel disease in L foot INDICATIONS: Skyler Bautista is a 84 y.o. female with PMHx significant for PAD s/p pelvic angiogram with bilateral NILAY stents s/p LLE angiogram with QUALITY CONTROL ASSOCIATE of popliteal artery, TPT and peroneal artery s/pL TMA who presented with necrosis and dehiscence of L TMA. I discussed proximal amputation vs repeat angiogram with patient and family. I discussed that if there was not anything that would significantly improve perfusion to the foot then it would be a diagnostic angiogram. Patient wanted everything possibly done even if an angiogram was only diagnostic. . Risks (including bleeding, infection, injury to the vessel resulting in thrombosis or distal embolization, contrast nephropathy, as well as cardiopulmonary complications), benefits and alternatives were discussed at length with the patient and family, and all questions were answered. Informed consent was signed. PROCEDURE DETAILS: The patient was brought to the IR suite, identified and placed supine on the table. The patient was placed under general anesthesia. The procedure sites were prepped and draped in a sterile fashion. Time out was performed. The femoral head was marked with a hemostat. Under ultrasound guidance, the R COMPLIANCE PARALEGAL was accessed using a micropuncture needle. X-ray confirmed appropriate position. Ultrasound showed a patent vessel, the puncture site was visualized and image was retained. The needle was exchanged over a guidewire for the micropuncture sheath. An angiogram was obtained which revealed no access related complications and appropriate position. The small sheath was then exchan ged over a guidewire for an 11 cm 5 Fr sheath. Next, SinDelantalson wire and Omniflush catheter were advanced to the abdominal aorta, and an abdominal aortogram was performed. See findings above. Over the guidewire, Omniflush catheter was advanced to the contralateral external iliac artery and a left femoral angiogram was performed. See findings above. The catheter was then advanced over a guidewire into the SFA and left lower extremity angiogram was performed. See findings above. The short5 Fr sheath was exchanged for a long 5 Fr sheath. IV heparin was administered. A wire and catheter were advanced into the popliteal artery an an angiogram was obtained. A wire and catheter were used to select the QUALITY CONTROL ASSOCIATE to better evaluate if it reconstituted distally. After the QUALITY CONTROL ASSOCIATE was selected, an angiogram was obtained, which did not reveal any distal reconstitution; thus any intervention on it would not lead to any clinical benefit. The catheter was retracted into the popliteal artery. Another angiogram was obtained which confirmed the DAREN occluded proximal to the ankle without reconstitution. The wire and catheter were advanced into the peroneal artery and the wire was removed. An angiogram was obtained, which still showed minimal filling of the L foot. While there was disease in the popliteal and TPT that could be intervened upon, I did not think this clinically would lead to the TMA being salvaged given the extent of small vessel disease in the L foot., so intervention was not performed. The long 5 Fr sheath was exchanged for a short 5 Fr sheath. A RLE angiogram was obtained. See findings above. 5 Fr Mynx closure device was then successfully deployed. Gentle manual pressure washeld to assure hemostasis. A sterile dressing was applied to the access site. The patient toleratedthe procedure well with no immediate complications. I was present and scrubbed for the entire procedure. The patient was then safely transferred to the PACU in stable condition after the procedure. SUMMARY: Significant small vessel disease. Occluded QUALITY CONTROL ASSOCIATE and DAREN distally without reconstitution. RECOMMENDATIONS: Bed rest for 3 hours. Recommend proximal LLE amputation Voice recognition technology was used to complete this note, and it may contain unintended errors despite the mortgage loan underwriter's best efforts to proofread it. Please contact me with questions. Signed: Lawrence Wolf MD * Lawrence Wolf MD - 05/10/2025 2:07 PM EDT [facility] ENDOVASCULAR PROCEDURE NOTE Skyler Bautista 05/10/25 PRE-OP DIAGNOSIS: L TMA dehiscence and necrosis, PAD POST-OP DIAGNOSIS: Same PROCEDURE(S): Ultrasound guided R COMPLIANCE PARALEGAL access Abdominal aortogram. Selection of L SFA via R COMPLIANCE PARALEGAL (3rd order) with LLE angiogram. Selection of QUALITY CONTROL ASSOCIATE with additional angiogram RLE angiogram RADIATION: 309 mGy FLUORO: 27.6 min SEDATION: General anesthesia CONTRAST: 68 mL SURGEON: Lawrence Wolf MD ANESTHESIA: Local, conscious sedation ESTIMATED BLOOD LOSS (mls): 5 mL LLE FINDINGS: COMPLIANCE PARALEGAL stenosis Patent popliteal and TPT with severe stenosis Patent proximal QUALITY CONTROL ASSOCIATE but occluded distally without reconstitution Patent DAREN with multifocal severe stenosis, occlusion at the level of the ankle and no distal reconstitution Significant small vessel disease in L foot DISPOSITION/POST PROC COURSE: PACU and flat for 3 hours documented in this encounter Consult Notes * Luis Manuel Mays MD - 05/26/2025 3:51 PM EDT [facility] [place] Critical Care Consult Note MDM Assessment: Skyler Bautista is a 84 y.o. 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 There are no focal deficits on exam. Her mentation is improved from prior which makes me feel thatthis was related to hypotension. If she does not return to normal, will obtain HCT. D/c all sedating medications (PRN oxy and dilaudid). CV: Hypotensive on the floor now s/p small fluid bolus with some improvement. Hypotension may be related to anemia vs sepsis vs AI. Cortisol level indeterminate - stim test pending. Will hold off on further fluid resuscitation given respiratory status and will start pressors for MAP>60. TTE ordered and pending. P: Currently on 2L NC with acceptable SpO2. CXR obtained today revealing pulmonary edema. TTE as above. Will need aggressive pulmonary care with IS and mobility. FBG as below. GI: Keep NPO for now. OK to liberalize if she is clinically improving. R: Cr stable. Mild hypokalemia on last labs related to hemolysis. Repeat on admission. Will aim forFBG of -0.5-1L today given O2 requirement but will be cautious in the setting of hypotension. H: Hb with slow dowtrend over the last 48 hours, no obvious s/s of bleeding. Transfuse 1u pRBC now.Trend H&H. Hold all AC until stabilizes. Will monitor to see if she develops any signs of GIB but currently no evidence of that. E: CCI. Stim test as above. ID: Febrile overnight and hypotensive today. Lactate and procal reassuring. U/a not consistent withUTI but Ucx is pending. Bcx obtained and pending. Zosyn restarted QUALITY CONTROL ASSOCIATE, will add Vanc for MRSA coverage. If clinical status does not improve, will consider CT C/A/P to rule out any occult cause of infection. While patient's mentation is improving, she is not clinically able to make higher level decisions (I.e. recite benefits/risks). Attempted to call Edgar (son) without success. She is currently Full Code. Hopeful to talk with Edgar later today but think family would benefit from another conversation with palliative tomorrow. Will ask them to re-engage given escalation of care. ICU Standards of Care Restraints: none VTE prophylaxis: SCD PUD PPx: PPI Glucose control: CCI Diet: NPO for now Lines/tubes/drains: PIV Code Status: Full Code Disposition: ICU Luis Manuel Mays M.D. Critical Care Medicine [facility] Critical care time: 39 minutes This was care delivered because one or more vital organ systems was impaired so that there was a high probability of imminent or life threatening deterioration in the patient???s condition. I instituted care that is considered a critical intervention because it involves high complexity decision making to assess, manipulate, and support vital organ system failure. This time was spent engaged in work directly related to the individual patient???s care either at the immediate bedside or elsewhere on unit. Time is exclusive of time spent on procedures (separately documented), unless otherwise noted. History of Present Illness HPI Patient is a 84-year-old female with a past medical history significant for HFpEF, atrial fibrillation (not on anticoagulation due to previous intracranial hemorrhage), PAD, type 2 diabetes complicated with left foot infection status post left TMA who initially presented to the hospital on 04/30 fordehiscence of her left TMA wound. Her workup revealed severe PAD with little to no blood flow belowthe knee and thus underwent AKA with vascular surgery on 05/24. She has had a prolonged hospitalization of nearly 1 month and while she was on the floor today she became more hypotensive and encephalopathic. She received a small fluid bolus without much improvement to her clinical status and thus wasadmitted to the ICU for further evaluation and care. On my assessment, patient is somewhat encephalopathic but will awaken and interact appropriately onexam. History is extremely limited due to this. Past History Past Medical History: Diagnosis Date A-fib (HCC) Arthritis Blood circulation, collateral CAD (coronary artery disease) Cardiac dysrhythmia Carotid artery occlusion CHF (congestive heart failure) (HCC) Diabetes mellitus (HCC) not currently on meds,rehab discontued Difficult intravenous access possible use of iv therapy/ultrasound to help with venous access. RIVERA (dyspnea on exertion) Encounter for blood transfusion Fatty liver Glaucoma Heartburn Hyperlipidemia Hypertension Liver disease Mixed hyperlipidemia Peripheral vascular disease Renal disorder Renal insufficiency Shortness of breath Sleep apnea pt has cpap, but is not using. Stroke (HCC) pt's states around 3 years ago. Urinary incontinence Urinary tract infection Past Surgical History: Procedure Laterality Date ABDOMEN SURGERY CARDIAC CATHETERIZATION CARDIAC SURGERY CABG/stents FOOT SURGERY Left 03/09/2025 Transmetatarsal amputation of the left foot; Surgeon: Dacia Mills DPM; Location: [facility]; Service: Podiatry FOOT SURGERY Left 03/17/2025 left transmetatarsal amputation revision; Surgeon: Irineo Perez DPM; Location: [facility]; Service: Podiatry HYSTERECTOMY IR ABDOMINAL AORTOGRAM SERIALOGRAM 05/10/2025 IR ABDOMINAL AORTOGRAM SERIALOGRAM 05/10/2025 Lawrence Wolf MD [facility] IR ANGIOGRAM EXTREMITY LEFT 01/30/2025 IR ANGIOGRAM EXTREMITY LEFT 01/30/2025 Lawrence Wolf MD [facility] IR ANGIOGRAM FEMORAL ARTERIO SHIFT 01/17/2025 IR ANGIOGRAM FEMORAL ARTERIO SHIFT 01/17/2025 Lawrence Wolf MD [facility] IR ANGIOGRAM FEMORAL ARTERIO SHIFT 05/10/2025 IR ANGIOGRAM FEMORAL ARTERIO SHIFT 05/10/2025 Lawrence Wolf MD [facility] IR REVAS FEM POP ART UNILAT W QUALITY CONTROL ASSOCIATE 01/30/2025 IR REVAS FEM POP ART UNILAT W QUALITY CONTROL ASSOCIATE 01/30/2025 Lawrence Wolf MD [facility] IR ULTRASOUND GUIDED VASCULAR ACCESS 01/17/2025 IR ULTRASOUND GUIDED VASCULAR ACCESS 01/17/2025 Lawrence Wolf MD [facility] IR ULTRASOUND GUIDED VASCULAR ACCESS 01/30/2025 IR ULTRASOUND GUIDED VASCULAR ACCESS 01/30/2025 Lawrence Wolf MD [facility] IR ULTRASOUND GUIDED VASCULAR ACCESS 05/10/2025 IR ULTRASOUND GUIDED VASCULAR ACCESS 05/10/2025 Lawrence Wolf MD [facility] JOINT REPLACEMENT TOE SURGERY Left 01/31/2025 Left foot hallux amputation; Surgeon: Dacia Mills DPM; Location: [facility]; Service: Podiatry Allergies Allergies Allergen Reactions Lidocaine Rash Current Meds atorvastatin 40 mg Oral Nightly cosyntropin (CORTROSYN) 0.25 mg in sodium chloride 0.9% 2 mL injection 0.25 mg Intravenous Once dorzolamide-timoloL 1 Drop Ophthalmic BID GLUCERNA Therapeutic 1 'box' Oral Q AM CRISTINE powder 1 Packet Oral BID latanoprost 1 Drop Ophthalmic Nightly mupirocin Nasal BID pantoprazole (PROTONIX) 40 mg Intravenous BID piperacillin-tazobactam (ZOSYN) extended infusion (Orderable) 3.375 g Intravenous 3 times per day ranolazine 1,000 mg Oral Daily PRN Meds sodium chloride 0.9 %, acetaminophen OR acetaminophen OR acetaminophen, atropine, dextrose, docusate sodium, glucagon AND sterile water, ICU Electrolyte Replacement - Calcium, ICU Electrolyte Replacement - Magnesium, ICU Electrolyte Replacement - Phosphate, ICU Electrolyte Replacement - Potassium, ondansetron, polyethylene glycol Infusions sodium chloride 0.9 % 75 mL/hr at 05/26/25 1355 sodium chloride 0.9 % sodium chloride 0.9% FAMILY HISTORY No family history on file. SOCIAL HISTORY Social History Socioeconomic History Marital status: Spouse name: None Number of children: None Years of education: None Highest education level: None Tobacco Use Smoking status: Former Current packs/day: 0.00 Types: Cigarettes Quit date: 1991 Years since quittin.6 Passive exposure: Past Smokeless tobacco: Never Vaping Use Vaping status: Never Used Substance and Sexual Activity Alcohol use: Not Currently Drug use: Never Sexual activity: Not Currently Partners: Male Social Drivers of Health Financial Resource Strain: Low Risk (05/01/2025) Overall Financial Resource Strain (CARDIA) Difficulty of Paying Living Expenses: Not hard at all Food Insecurity: No Food Insecurity (05/01/2025) Hunger Vital Sign Worried About Running Out of Food in the Last Year: Never true Ran Out of Food in the Last Year: Never true Transportation Needs: No Transportation Needs (05/01/2025) [facility] IP Transportation In the past 12 months, has lack of reliable transportation kept you from medical appointments, meetings, work or from getting things needed for daily living?: No Physical Activity: Inactive (05/01/2025) Exercise Vital Sign Days of Exercise per Week: 0 days Minutes of Exercise per Session: 0 min Stress: No Stress Concern Present (05/01/2025) [employer] [place] [employer] [facility] - Occupational Stress Questionnaire Feeling of Stress : Not at all Received from [employer] ([place], [place], [place], [place]) Family and Community Support Intimate Partner Violence: Not At Risk (08/06/2024) Received from [facility] Humiliation, Afraid, Rape, and Kick questionnaire Fear of Current or Ex-Partner: No Emotionally Abused: No Physically Abused: No Sexually Abused: No Housing Stability: Low Risk (08/06/2024) Received from [facility] Housing Stability Vital Sign Unable to Pay for Housing in the Last Year: No Number of Places Lived in the Last Year: 1 Unstable Housing in the Last Year: No Examination Vital Signs BP (!) 82/43 Pulse 78 Temp 97.4 ??F (36.3 ??C) (Axillary) Resp 18 Ht 5' 2 (1.575 m) Wt 120 lb (54.4 kg) SpO2 96% BMI 21.95 kg/m?? I/O Last 24: Intake/Output Summary (Last 24 hours) at 05/26/2025 1555 Last data filed at 05/26/2025 1125 Gross per 24 hour Intake 150.42 ml Output 400 ml Net -249.58 ml Wt Readings from Last 2 Encounters: 05/11/25 120 lb (54.4 kg) 04/18/25 137 lb (62.1 kg) Constitutional: Ill-appearing 84-year-old female sitting at bedside HEENT: Normocephalic, atraumatic. PERRL. Cardiovascular: Regular rate and rhythm Pulmonary: Nonlabored respirations Gastrointenstinal: soft, non-distended abdomen. Musculoskeletal: Left AKA without any drainage or discharge Skin: Warm, perfused. Neurological: Somnolent but will arouse to physical stimuli. Alert and oriented x 2 (person, place). Will follow commands in all 4 extremities. Does intermittently fall back asleep on examination Data Reviewed Pertinent laboratory and imaging data reviewed. IMAGING DATA: EK EKG 12 LEAD Result Date: 05/26/2025 NOTICE: Preliminary tracing available for review; Final Interpretation by physician to follow. [facility] Test Date: 2025-05-26 Pat Name: SKYLER BAUTISTA Department: [facility] Room: 3318 Gender: Female Directory Carrier: [place] : 1940 Requested By: STEPHEN Earl Order Number: [id number] Reading MD: Measurements Intervals Cecil Rate: 78 P: 0 GA: 0 QRS: 16 QRSD: 88T: 27 QT: 364 QTc: 416 Interpretive Statements ATRIAL FIBRILLATION LOW QRS VOLTAGE IN PRECORDIAL LEADS POSSIBLE ANTERIOR MYOCARDIAL INFARCTION, PROBABLY OLD ABNORMAL RHYTHM ECG XR CHEST AP PORTABLE Result Date: 05/26/2025 XR CHEST AP PORTABLE, 05/26/2025 11:04 AM CLINICAL HISTORY: -fever COMPARISON: April 30, 2025. PROCEDURE COMMENTS: AP portable technique. FINDINGS: Support devices: No visible support devices. 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 Heart size is increased compared to prior study and there is now pulmonary venous congestion and interstitial edema. Small effusions are present, greater on the left. No visible pneumothorax. Fluid overload or CHF with pulmonary edema and effusions. - Note: Radiology results need to be interpreted within a comprehensive clinical context. If you have questions about the radiology report, please contact the office of the ordering clinician. HEMODYNAMIC DATA: BP Min: 82/43 Max: 151/87 Pulse Av.6 Min: 72 Max: 136 SUPPLEMENTAL O2 & NIV: (past 24h, last filed) O2 Device: Nasal cannula O2 Flow Rate (L/min): 2 lpm MECHANICAL VENTILATION: (past 24h, last filed) * Leti Jefferson APRN - 05/13/2025 3:48 PM EDTAssociated Order(s): IP CONSULT TO PALLIATIVE CARE Palliative Care Consult Note Consult Location: [facility] Length of Stay: 12 - chart review complete. Referring Provider: MD Maryann Assessment: Skyler Bautista is a 84 y.o. female with PVD who presented to the ED with dehiscence of left TMA. With initial surgery on 03/09/25, with revision on 03/18/25. Patient has been presented with the treatmentoptions of [facility]. Patient with multiple underlying co morbidities as well. [facility] consulted to assist with goals of care. Voluntary goals of care discussion with patient who was resting in bed, she is tearful as she shares questioning what she has done wrong for God to punish her. With attempting to determine what act in her life has lead to her this point. She shares not being able to fathom the idea of looking down and not having her entire leg. She describers herself as having complete treasure that her God will carry her though the decision she is facing and needing more time to consider her treatment options. She is able to verbalize alternative treatment with focus on comfort with hospice support. Patient reports support form her 2 sons and sister, who support whatever her decision is and not having any outside influence regarding. Patient shares being helpful to explore this further with floor Hand Stemmer. Support provided along with [facility] role. Patient reports pain in her L foot, currently well controlled with current prn regimen. With plans for [facility] team to follow up with patient tomorrow. Decisional Capacity:Fully Decisional Based on determination of decisional capacity, health care surrogateagent: Inactive Advance Directive Document: No documents present in chart, education provided, documents pending Name (s): Sons: Edgar + 1 more Additional information: adult children, majority rules, 11/18. Surrogate by: DAVIDK per KRAneesh Disposition: TBD, depending treatment preference. From home. Palliative Performance Scale: 30% Prognosis: TBD Palliative Plan of Care: Goals: Patient needing more time to consider treatment options. She is able to verbalize surgical interventions vs comfort focused care. Code: Full Code Symptom Needs: Per Primary Pain: Neurontin 300mg nightly + Acetaminophen prn + Roxicodone 10mg q4 hrs prn (4 doses/24hrs) + Morphine 2mg IV q4 hrs prn (1 dose/24hrs) Opioid Induced Constipation: Start senna at bedtime Last noted BM 05/13/25. Psychosocial distress: anticipatory grief, change in QoL and loss on independence. Spiritual distress: Concern for punishment from God [facility] will continue to follow along. Chief Complaint: Chief Complaint Patient presents with Wound Dehiscence Pt presents per ems from [facility], toes amputated on left foot, here for wound check. History of Present Illness: Skyler Bautista is a 84 y.o. female with + PMH for a- fib, CHF, DM, HNT, Lfrontotemporal hemorrhagic contusion, bilateral SAH & SDH in January 2024 at . Also with recentLeft TMA, with revision on 03/18/25. Patient admitted after dehiscence of left TMA. Patient has been offered treatment options. [facility] consulted to assist with goals of care. Of note, current admission is patient's 4th hospitalization within the past 6 months. Review of Systems: ROS The listed systems were reviewed and reveal the following in addition to any already discussed in the HPI: Constitutional: No fever Eyes: No visual disturbance HENT: no headache,no hearing loss Lungs: no SOB, no nonprod cough Cardiovascular: No chest pain, PND, or orthopnea Endocrine: No polyuria, polydypsia, or polyphagia GI: No abdominal pain, nausea, vomiting, diarrhea : No dysuria, frequency, hesitancy, or hematuria Musculoskeletal: no weakness Neurologic: Alert & oriented Skin: No edema, jaundice Psychiatric: No depression, anxiety Hematologic/Allergic: No blood clots, bleeding or easy bruising Past Medical History: Past Medical History: Diagnosis Date A-fib ([facility]) Arthritis Blood circulation, collateral CAD (coronary artery disease) Cardiac dysrhythmia Carotid artery occlusion CHF (congestive heart failure) ([facility]) Diabetes mellitus (HCC) not currently on meds,rehab discontued Difficult intravenous access possible use of iv therapy/ultrasound to help with venous access. RIVERA (dyspnea on exertion) Encounter for blood transfusion Fatty liver Glaucoma Heartburn Hyperlipidemia Hypertension Liver disease Mixed hyperlipidemia Peripheral vascular disease Renal disorder Renal insufficiency Shortness of breath Sleep apnea pt has cpap, but is not using. Stroke ([facility]) pt's states around 3 years ago. Urinary incontinence Urinary tract infection Active Hospital Problems: Active Hospital Problems Diagnosis *Diabetic foot infection ([facility]) Wound dehiscence S/P transmetatarsal amputation of foot, left ([facility]) Stage 3a chronic kidney disease (HCC) Anemia in other chronic diseases classified elsewhere PAD (peripheral artery disease) Chronic heart failure with preserved ejection fraction (HCC) Paroxysmal atrial fibrillation (HCC) 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 Type 2 diabetes mellitus, without long-term current use of insulin (HCC) Hypertension associated with diabetes ([facility]) Social History: Social History Socioeconomic History Marital status: Spouse name: Not on file Number of children: Not on file Years of education: Not on file Highest education level: Not on file Occupational History Not on file Tobacco Use Smoking status: Former Current packs/day: 0.00 Types: Cigarettes Quit date: 1991 Years since quittin.5 Passive exposure: Past Smokeless tobacco: Never Vaping Use Vaping status: Never Used Substance and Sexual Activity Alcohol use: Not Currently Drug use: Never Sexual activity: Not Currently Partners: Male Other Topics Concern Not on file Social History Narrative Not on file Social Drivers of Health Financial Resource Strain: Low Risk (05/01/2025) Overall Financial Resource Strain (CARDIA) Difficulty of Paying Living Expenses: Not hard at all Food Insecurity: No Food Insecurity (05/01/2025) Hunger Vital Sign Worried About Running Out of Food in the Last Year: Never true Ran Out of Food in the Last Year: Never true Transportation Needs: No Transportation Needs (05/01/2025) [facility] IP Transportation In the past 12 months, has lack of reliable transportation kept you from medical appointments, meetings, work or from getting things needed for daily living?: No Physical Activity: Inactive (05/01/2025) Exercise Vital Sign Days of Exercise per Week: 0 days Minutes of Exercise per Session: 0 min Stress: No Stress Concern Present (05/01/2025) [employer] [employer] - Occupational Stress Questionnaire Feeling of Stress : Not at all Social Connections: Low Risk (10/30/2023) Received from [employer] ([place], [place], [place], [place]) Family and Community Support Help with Day to Day Activities: Not on file Feeling Lonely or Isolated: Not on file Intimate Partner Violence: Not At Risk (08/06/2024) Received from [facility] Humiliation, Afraid, Rape, and Kick questionnaire Fear of Current or Ex-Partner: No Emotionally Abused: No Physically Abused: No Sexually Abused: No Housing Stability: Low Risk (08/06/2024) Received from [facility] Housing Stability Vital Sign Unable to Pay for Housing in the Last Year: No Number of Places Lived in the Last Year: 1 Unstable Housing in the Last Year: No Family History: No family history on file. Inpatient Medications: Current Facility-Administered Medications Medication Dose Route Frequency Last Rate Last Admin acetaminophen (TYLENOL) tablet 1,000 mg 1,000 mg Oral Preprocedure acetaminophen (TYLENOL) tablet 650 mg 650 mg Oral Q4H PRN 650 mg at 05/06/255 ALPRAZolam (XanAX) tablet 0.5 mg 0.5 mg Oral Nightly 0.5 mg at 05/12/252254 atorvastatin (LIPITOR) tablet 40 mg 40 mg Oral Nightly 40 mg at 05/12/252254 carvediloL (COREG) tablet 12.5 mg 12.5 mg Oral BID 12.5 mg at 05/13/25903 dextrose 50 % solution 25 mL 25 mL Intravenous PRN dorzolamide-timoloL (COSOPT) 22.3-6.8 mg/mL ophthalmic solution 1 Drop 1 Drop Ophthalmic BID 1 Dropat 05/11/252010 gabapentin (NEURONTIN) capsule 300 mg 300 mg Oral Nightly 300 mg at 05/12/252254 glucagon (GLUCAGEN) injection 1 mg 1 mg Intramuscular PRN And sterile water injection 1 mL 1 mL Injection PRN GLUCERNA Therapeutic oral supplement 1 'box' 1 'box' Oral BID with Meals 1 'box' at 05/13/25 09 CRISTINE powder oral supplement 1 Packet 1 Packet Oral BID 1 Packet at 05/13/25 09 latanoprost (XALATAN) 0.005 % ophthalmic solution 1 Drop 1 Drop Ophthalmic Nightly 1 Drop at 05/11/252010 morphine injection 2 mg 2 mg Intravenous Q4H PRN 2 mg at 05/13/25 0143 oxyCODONE (ROXICODONE) immediate release tablet 10 mg 10 mg Oral Q4H PRN 10 mg at 05/13/25 1137 pantoprazole (PROTONIX) tablet 40 mg 40 mg Oral Daily 40 mg at 05/13/25 0904 ranolazine (RANEXA) SR tablet 1,000 mg 1,000 mg Oral Daily 1,000 mg at 05/13/25 0904 Objective: Vitals: Vitals: 05/13/25 1249 BP: Pulse: 94 Resp: Temp: SpO2: Physical Exam: Constitutional: Vital signs are noted,lying in bed , No apparent distress, alert, oriented, interactive HEENT: Normocephalic, without obvious abnormality Neck: Supple RESP: Respiratory effort regular and easy. CV: Rate is normal GI: abdomen is soft, nontender, and nondistended : Defer. Not examined. MSK: moves with generalized weakness SKIN: Warm and dry. L foot with necrotic suture line. NEURO: Non focal, speech is normal Psych: Normal mood and affect Medically Ready for discharge per Palliative Care Standpoint?: Yes Will follow-up in clinic?: No Medication recommendations?: per Primary Prescribing Care team at discharge?: per Primawry Will sign off?: No Thank you for the opportunity to participate in the care of this patient. We will follow along withyou. Please contact the palliative care service team with questions or concerns. Leti Jefferson APRN - Palliative Care Services Time-Based Billing Statement I spent 65 minutes in the care of this patient on this calendar day. Activities performed during this time include: Reviewing imaging, Performing the appropriate exam, Counseling and educating, Ordering medications,Referring and communicating with another professional, Documenting clinical information in the EHR,and Care coordination The total time documented above did not include the following activities which were also performed on this calendar day: None * Lawrence Wolf MD - 05/03/2025 9:50 AM EDTAssociated Order(s): IP CONSULT TO VASCULAR SURGERY Images from the original note were not included. Name: Skyler Bautista ADDRESS: [address] [place] [id number] : 1940 AGE: 84 y.o. Hospital: [facility] Requesting Attending: Dr. Aguirre Primary Care Physician: No Pcp, Per Patient Date of Admission: 04/30/2025 Date of Consultation: 05/03/2025 Admitting Diagnosis: Diabetic foot infection (HCC) Chief Complaint / Reason for Consult: PAD HISTORY OF PRESENT ILLNESS History of Presenting Illness: Skyler Bautista is a(n) 84 y.o. poor historian with PMH significant for atrial fibrillation, arthritis, CHF, diabetes mellitus, HTN, L frontotemporal hemorrhagic contusion, bilateral SAH and SDH in January 2024 at . She is known to our vascular service for PAD with ulcer status post LLE angiogram with QUALITY CONTROL ASSOCIATE of peroneal, tibioperoneal trunk and popliteal arteries on 01/30/2025. The patient presented to the ER on 04/30 with dehiscence of left TMA. The surgery was initially performed on 03/09/2025 by Podiatry then required subsequent revision of the TMA on 03/18/2025. BLE arterial duplex shows triphasic doppler flow pattern is noted in the right and left common femoral artery. There is a 20-49% stenosis right common femoral artery and proximal profunda artery. There is a 50-99% stenosis right proximal and mid SFA and anterior tibial artery. The right proximal and distal posterior tibial artery is occluded. There is a 50-99% stenosis left proximal/mid SFA and 20-49% stenosis left distal SFA. The left posterior tibial artery is occluded. The great toe PPG waveform is absent. There is a left TMA. The right anterior tibial artery is non-compressible. Right FERNIE is 0.50 andleft FERNIE: 1.35. The right FERNIE is in the severe claudication range and the left FERNIE is in the normalrange, however ABIs may be falsely elevated and unreliable secondary to calcified arterial andino. Vascular surgery was consulted for further evaluation. She reports having pain in the right foot and left TMA. Vascular Surgical History: 01/30/2025 - Left LE angiogram with QUALITY CONTROL ASSOCIATE of peroneal and tibioperoneal trunk with 1.5 x 80 mm and 2 x200 balloons. QUALITY CONTROL ASSOCIATE of the popliteal artery with 3.5 x 120 mm and 4 x 80 mm balloons. (Lawrence Wolf MD) REVIEW OF SYSTEMS Review of Systems: The following systems were reviewed and revealed the following in addition to any already discussedin the HPI: Constitutional: No additional concerns noted Eyes: No additional concerns HENT: No additional concerns noted Respiratory: No additional concerns noted Cardiovascular: No additional concerns noted Gastrointestinal: No additional concerns noted Genitourinary: No additional concerns noted Musculoskeletal: No additional concerns noted Integumentary: No additional concerns noted Hematology / Lymphatics: No additional concerns Endocrine: No additional concerns noted Allergy / Immunology: No additional concerns noted Neuro / Psych: No additional concerns noted MEDICAL HISTORY Medications Medications Prior to Admission Medication Sig Dispense Refill Last Dose/Taking acetaminophen (TYLENOL) 500 mg Oral Tablet Take 1,000 mg by mouth every 8 hours. 04/30/2025 ALPRAZolam (XANAX) 0.5 mg Oral Tablet Take 0.5 mg by mouth daily. Taking atorvastatin (LIPITOR) 40 mg Oral Tablet Take 40 mg by mouth nightly. Taking Calcium Carbonate (ANTACID ULTRA STRENGTH) 400 mg calcium (1,000 mg) Oral Tablet, Chewable Take 1,000 mg by mouth daily. Taking carvediloL (COREG) 12.5 mg Oral Tablet Take 1 Tablet by mouth 2 times daily. 04/30/2025 dorzolamide-timoloL (COSOPT) 22.3-6.8 mg/mL Opht Drops Apply 1 Drop to eye. Taking fUROsemide (LASIX) 40 mg Oral Tablet Take 40 mg by mouth daily. Taking gabapentin (NEURONTIN) 300 mg Oral Capsule Take 1 Capsule by mouth nightly. 30 Capsule 0 Taking latanoprost (XALATAN) 0.005 % Opht Drops Apply 1 Drop to eye nightly. Taking pantoprazole (PROTONIX) 40 mg Oral Tablet, Delayed Release (E.C.) Take 1 Tablet by mouth daily. 90 Tablet 3 Taking polyethylene glycol (GLYCOLAX, MIRALAX) 17 gram Oral Powder in Packet Take 17 g by mouth daily. Taking ranolazine (RANEXA) 500 mg Oral Tablet Sustained Release 12 hr Take 1,000 mg by mouth daily. Taking Cholecalciferol, Vitamin D3, 50 mcg (2,000 unit) Oral Capsule Take by mouth daily. (Patient not taking: Reported on 04/30/2025) Not Taking cyanocobalamin 1,000 mcg Oral Tablet Take 1,000 mcg by mouth daily. Unknown lidocaine (LIDODERM) 5 % Top Adhesive Patch, Medicated Apply 1 Patch topically. (Patient not taking: Reported on 04/30/2025) Not Taking nalOXone (NARCAN) 4 mg/actuation Nasl [place], Non-Aerosol 0.1 mL by Nasal route as needed for OpioidReversal. [place] the contents of one device (0.1mL) into one nostril upon signs of opioid overdose. Call 911. May repeat dose in other nostril if no response within 2-3 minutes. 1 Each 0 nalOXone (NARCAN) 4 mg/actuation Nasl [place], Non-Aerosol 0.1 mL by Nasal route as needed for OpioidReversal. [place] the contents of one device (0.1mL) into one nostril upon signs of opioid overdose. Call 911. May repeat dose in other nostril if no response within 2-3 minutes. 1 Each 0 Unknown Current Facility-Administered Medications Medication Dose Route Frequency Provider Last Rate Last Admin acetaminophen (TYLENOL) tablet 650 mg 650 mg Oral Q4H PRN Rajendra Petty MD (Ronny) 650 mgat 05/01/25 0151 atorvastatin (LIPITOR) tablet 40 mg 40 mg Oral Nightly Alyson Guillermo, PHOTO OFFSET PRINTER 40 mg at 05/02/252153 carvediloL (COREG) tablet 12.5 mg 12.5 mg Oral BID Alyson Guillermo, PHOTO OFFSET PRINTER 12.5 mg at 05/02/252153 dextrose 50 % solution 25 mL 25 mL Intravenous PRN Rajendra Petty MD (Ronny) dorzolamide-timoloL (COSOPT) 22.3-6.8 mg/mL ophthalmic solution 1 Drop 1 Drop Ophthalmic BID Alyson Guillermo, PHOTO OFFSET PRINTER 1 Drop at 05/01/252235 gabapentin (NEURONTIN) capsule 300 mg 300 mg Oral Nightly Alyson Guillermo PHOTO OFFSET PRINTER 300 mg at 05/02/252153 glucagon (GLUCAGEN) injection 1 mg 1 mg Intramuscular PRN Rajendra Petty MD (Ronny) And sterile water injection 1 mL 1 mL Injection PRN Rajendra Petty MD (Ronny) GLUCERNA Therapeutic oral supplement 1 'box' 1 'box' Oral BID with Meals Marcell Aguirre MD 1 'box' at 05/01/25 1800 insulin aspart U-100 (NovoLOG) injection 1-10 Units 1-10 Units Subcutaneous QID Aleksandra Petty MD (Ronny) CRISTINE powder oral supplement 1 Packet 1 Packet Oral BID Marcell Aguirre MD latanoprost (XALATAN) 0.005 % ophthalmic solution 1 Drop 1 Drop Ophthalmic Nightly Alyson Guillermo, PHOTO OFFSET PRINTER 1 Drop at 05/01/252238 LORazepam (ATIVAN) tablet 0.5 mg 0.5 mg Oral Nightly Marcell Aguirre MD 0.5 mg at 05/02/252153 metFORMIN (GLUCOPHAGE) tablet 500 mg 500 mg Oral BID Marcell Aguirre MD 500 mg at 05/02/25 1735 morphine injection 2 mg 2 mg Intravenous Q4H PRN Rajendra Petty MD (Ronny) 2 mg at 05/03/25 0046 Or morphine injection 3-4 mg 3-4 mg Intravenous Q4H PRN Rajendra Petty MD (Ronny) 4 mg at 05/01/25 1544 oxyCODONE (ROXICODONE) immediate release tablet 10 mg 10 mg Oral Q4H PRN Marcell Aguirre MD 10 mg at 05/03/25 0253 pantoprazole (PROTONIX) tablet 40 mg 40 mg Oral Daily Rajendra Petty MD (Ronny) 40 mg at 05/02/25 1212 ranolazine (RANEXA) SR tablet 1,000 mg 1,000 mg Oral Daily Rajendra Petty MD (Ronny) 1,000mg at 05/02/25 1212 Allergies Allergen Reactions Lidocaine Rash Past Medical History: Diagnosis Date A-fib (HCC) Arthritis Blood circulation, collateral CAD (coronary artery disease) Cardiac dysrhythmia Carotid artery occlusion CHF (congestive heart failure) (HCC) Diabetes mellitus (HCC) not currently on meds,rehab discontued Difficult intravenous access possible use of iv therapy/ultrasound to help with venous access. RIVERA (dyspnea on exertion) Encounter for blood transfusion Fatty liver Glaucoma Heartburn Hyperlipidemia Hypertension Liver disease Mixed hyperlipidemia Peripheral vascular disease Renal disorder Renal insufficiency Shortness of breath Sleep apnea pt has cpap, but is not using. Stroke (HCC) pt's states around 3 years ago. Urinary incontinence Urinary tract infection Past Surgical History: Procedure Laterality Date ABDOMEN SURGERY CARDIAC CATHETERIZATION CARDIAC SURGERY CABG/stents FOOT SURGERY Left 03/09/2025 Transmetatarsal amputation of the left foot; Surgeon: Dacia Mills DPM; Location: [facility]; Service: Podiatry FOOT SURGERY Left 03/17/2025 left transmetatarsal amputation revision; Surgeon: Irineo Perez DPM; Location: [facility]; Service: Podiatry HYSTERECTOMY IR ANGIOGRAM EXTREMITY LEFT 01/30/2025 IR ANGIOGRAM EXTREMITY LEFT 01/30/2025 Lawrence Wolf MD [facility] IR ANGIOGRAM FEMORAL ARTERIO SHIFT 01/17/2025 IR ANGIOGRAM FEMORAL ARTERIO SHIFT 01/17/2025 Lawrence Wolf MD [facility] IR REVAS FEM POP ART UNILAT W QUALITY CONTROL ASSOCIATE 01/30/2025 IR REVAS FEM POP ART UNILAT W QUALITY CONTROL ASSOCIATE 01/30/2025 Lawrence Wolf MD [facility] IR ULTRASOUND GUIDED VASCULAR ACCESS 01/17/2025 IR ULTRASOUND GUIDED VASCULAR ACCESS 01/17/2025 Lawrence Wolf MD [facility] IR ULTRASOUND GUIDED VASCULAR ACCESS 01/30/2025 IR ULTRASOUND GUIDED VASCULAR ACCESS 01/30/2025 Lawrence Wolf MD [facility] IR JOINT REPLACEMENT TOE SURGERY Left 01/31/2025 Left foot hallux amputation; Surgeon: Dacia Mills DPM; [facility]; Service: Podiatry No family history on file. Social History: Social History Tobacco Use Smoking Status Former Current packs/day: 0.00 Types: Cigarettes Quit date: 1991 Years since quittin.5 Passive exposure: Past Smokeless Tobacco Never PHYSICAL EXAMINATION Physical Examination Patient Vitals for the past 24 hrs: BP Temp Temp src Pulse Resp SpO2 05/03/25 0501 -- -- -- 89 -- -- 05/03/25 0317 -- -- -- 91 -- -- 05/03/25 0107 -- -- -- 83 -- -- 05/03/25 0003 108/64 98.4 ??F (36.9 ??C) Oral 88 16 100 % 05/02/25 2153 133/73 -- -- 90 -- -- 05/02/25 1656 111/86 98.6 ??F (37 ??C) Oral 88 18 100 % 05/02/25 1209 115/54 98 ??F (36.7 ??C) Oral 73 18 100 % 05/02/25 1151 129/59 97.7 ??F (36.5 ??C) Oral 91 16 100 % General: Patient appears comfortable in no apparent distress. Skin: left TMA Head: NC/AT Eyes: Anicteric sclerae. ENT: Face is symmetrical. Neck: No tracheal deviation Lungs: Effort normal Cardiac: RRR Abdomen: Abdomen is soft, non-tender. Vascular Pulse Exam: R radial +2 L radial +2 R femoral +1 L femoral +1 R popliteal L popliteal R posterior tibial 0 L posterior tibial 0 R dorsalis pedis 0 L dorsalis pedis 0 Back: No kyphosis noted : not examined Lymphadenopathy: not examined Musculoskeletal: moves all extremities Extremities: No lower extremity edema Neurological: alert and oriented. LABS AND RADIOLOGY Laboratory: CBC: Lab Results Component Value Date WBC 3.5 (L) 05/03/2025 RBC 2.19 (L) 05/03/2025 HGB 8.0 (L) 05/03/2025 HCT 25.0 (L) 05/03/2025 MCV 114.2 (H) 05/03/2025 MCHC 32.0 05/03/2025 RDW 17.7 (H) 05/03/2025 PLT 68 (L) 05/03/2025 MPV 12.3 05/03/2025 BMP: Lab Results Component Value Date NA 137 05/03/2025 K 4.5 05/03/2025 CL 105 05/03/2025 CO2 22 05/03/2025 BUN 23 05/03/2025 CREATININE 0.89 05/03/2025 CALCIUM 8.5 (L) 05/03/2025 GLU 109 (H) 05/03/2025 Radiology: SD US LOWER EXTREMITY ARTERIAL DUPLEX COMPLETE Result Date: 05/03/2025 Conclusions * Triphasic Doppler flow pattern is noted in the right and left common femoral artery. * 20-49% stenosis right common femoral artery. * 20-49% stenosis proximal profunda artery. * 50-99% stenosis right proximal and mid SFA. * 50-99% stenosis right proximal anterior tibial artery. 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 * 50-99% stenosis left proximal/mid SFA. * 20-49% stenosis left distal SFA. * Occlusion left posterior tibial artery. * The great toe PPG waveform is absent. * There is a left TMA. * The right anterior tibial artery is non-compressible. * RABI: 0.50. * LABI: 1.35. * The right FERNIE is in the severe claudication range and the left FERNIE is in the normal range, however ABIs may be falsely elevated and unreliable secondary to calcified arterial andino. MEDICAL DECISION MAKING Assessment: PAD with failing left TMA. Hx L frontotemporal hemorrhagic contusion, bilateral SAH and SDH Hx frequent falls Paroxysmal atrial fibrillation Chronic CHF CAD Diabetes mellitus Hypertension CKD Recommendations: No immediate plans for vascular intervention today. Ok to resume previous diet if cleared by other specialist. The patient would likely benefit from undergoing a repeat LE angiogram with possible intervention. The procedure will need to be performed in the OR under general anesthesia. Timing to be determined on OR availability. Further per Dr. Wolf. Thank you for including us in the care of your patient. I will follow Skyler Bautista with you duringthis hospitalization. Time spent reviewing chart, discussing plan/answering questions of family, and at the bedside examining patient: 45 minutes Signed: Teo De La Torre PA-C 05/03/2025 9:50 AM Physician Documentation: I have reviewed the chief complaint, history of present illness, review of systems as well as the past medical/social/family history sections for this patient. I have examined this patient, and participated in the care of this patient. I have reviewed the pertinent clinical information including physical exam, labs, radiographic studies and the impression and plan, and I agree with the assessmentand plan as documented. This patient was seen in coordination with the physician physician assistant surgery/nurse practitioner. Patient with LLE angiogram with QUALITY CONTROL ASSOCIATE of popliteal, TPT and peroneal artery 01/29 s/p L TMA who presents with necrosis and dehiscence of TMA incision Arterial duplex personally reviewed. Discussed situation at length with patient and her sister, who we called on the phone. Patient is at very high risk for requiring a proximal amputation. I discussed amputation vs attempting another angiogram with [place]. Patient states she will never agree to a proximal amputation. It is reasonable to perform an angiogram to confirm the perfusion but unless there is something to intervene upon that significantly improves the perfusion, I recommend against attempting further podiatric surgery on herfoot as it would not be expected to heal. The first angiogram had to be aborted due to patient's inability to lay still so I will need to wait until anesthesia is available to perform the angiogram. All questions were answered. Discussed plan with podiatry. Lawrence Wolf MD * Jovanni Montesinos APRN - 05/01/2025 5:34 PM EDTAssociated Order(s): Inpatient consult to Podiatry Images from the original note were not included. Name: Skyler Bautista Inpatient consult to Podiatry Consult performed by: Jovanni Montesinos APRN Consult ordered by: Kaur, Donnie Jorje, MD Assessment/Plan Left TMA stump complication Left TMA wound dehiscence Peripheral arterial disease Diabetic neuropathy Status post transmetatarsal amputation of left foot - No immediate podiatric surgical intervention, patient may eat if cleared by other services - will order a noninvasive vascular ultrasound to evaluate blood flow - X-ray left foot - no radiographic evidence of recurrent osteomyelitis - Betadine to wound and leave open to air - Foot does not appear infected at this time - Patient needs wound revision, timing per Dr. Onofre - Discussed with patient that if foot is infected that she would require a BKA, patient verbalized understanding and stated Dr. Perez had discussed this with her previously - Patient does not want a BKA at this time Discussed with Dr Onofre CC: Skyler Bautista is a 84 y.o. female, well-known to our service, with PMH significant for A-fib, CAD, PAD, CHF, hyperlipidemia, hypertension, renal insufficiency, sleep apnea and CVA presents to thehospital with wound dehiscence and concern for wound infection. Patient had a left transmetatarsal amputation with a revision TMA on 03/17/[address] Perez. 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 Her foot is not currently infected, minimal redness and swelling with sutures intact. Patient offered that Dr. Park told her if her foot became infected shewould need a BKA. She does not want a BKA. Denies fever, chills, vomiting and nausea. This note was completed using voice recognition technology. Despite the mortgage loan underwriter's best efforts to proof read, it may still contain unintended errors. Please call with questions. PCP:No Pcp, Per Patient Past Medical History: Diagnosis Date A-fib (HCC) Arthritis Blood circulation, collateral CAD (coronary artery disease) Cardiac dysrhythmia Carotid artery occlusion CHF (congestive heart failure) (HCC) Diabetes mellitus (HCC) not currently on meds,rehab discontued Difficult intravenous access possible use of iv therapy/ultrasound to help with venous access. RIVERA (dyspnea on exertion) Encounter for blood transfusion Fatty liver Glaucoma Heartburn Hyperlipidemia Hypertension Liver disease Mixed hyperlipidemia Peripheral vascular disease Renal disorder Renal insufficiency Shortness of breath Sleep apnea pt has cpap, but is not using. Stroke (HCC) pt's states around 3 years ago. Urinary incontinence Urinary tract infection Past Surgical History: Procedure Laterality Date ABDOMEN SURGERY CARDIAC CATHETERIZATION CARDIAC SURGERY CABG/stents FOOT SURGERY Left 03/09/2025 Transmetatarsal amputation of the left foot; Surgeon: Dacia Mills DPM; Location: [facility]; Service: Podiatry FOOT SURGERY Left 03/17/2025 left transmetatarsal amputation revision; Surgeon: Irineo Perez DPM; Location: [facility]; Service: Podiatry HYSTERECTOMY IR ANGIOGRAM EXTREMITY LEFT 01/30/2025 IR ANGIOGRAM EXTREMITY LEFT 01/30/2025 Lawrence Wolf MD [facility] IR ANGIOGRAM FEMORAL ARTERIO SHIFT 01/17/2025 IR ANGIOGRAM FEMORAL ARTERIO SHIFT 01/17/2025 Lawrence Wolf MD [facility] IR REVAS FEM POP ART UNILAT W QUALITY CONTROL ASSOCIATE 01/30/2025 IR REVAS FEM POP ART UNILAT W QUALITY CONTROL ASSOCIATE 01/30/2025 Lawrence Wolf MD [facility] IR ULTRASOUND GUIDED VASCULAR ACCESS 01/17/2025 IR ULTRASOUND GUIDED VASCULAR ACCESS 01/17/2025 Lawrence Wolf MD [facility] IR ULTRASOUND GUIDED VASCULAR ACCESS 01/30/2025 IR ULTRASOUND GUIDED VASCULAR ACCESS 01/30/2025 Lawrence Wolf MD [facility] JOINT REPLACEMENT TOE SURGERY Left 01/31/2025 Left foot hallux amputation; Surgeon: Dacia Mills DPM; Location: [facility]; Service: Podiatry No family history on file. Social History Socioeconomic History Marital status: Spouse name: None Number of children: None Years of education: None Highest education level: None Tobacco Use Smoking status: Former Current packs/day: 0.00 Types: Cigarettes Quit date: 1991 Years since quittin.5 Passive exposure: Past Smokeless tobacco: Never Vaping Use Vaping status: Never Used Substance and Sexual Activity Alcohol use: Not Currently Drug use: Never Sexual activity: Not Currently Partners: Male Social Drivers of Health Financial Resource Strain: Low Risk (05/01/2025) Overall Financial Resource Strain (CARDIA) Difficulty of Paying Living Expenses: Not hard at all Food Insecurity: No Food Insecurity (05/01/2025) Hunger Vital Sign Worried About Running Out of Food in the Last Year: Never true Ran Out of Food in the Last Year: Never true Transportation Needs: No Transportation Needs (05/01/2025) [facility] IP Transportation In the past 12 months, has lack of reliable transportation kept you from medical appointments, meetings, work or from getting things needed for daily living?: No Physical Activity: Inactive (05/01/2025) Exercise Vital Sign Days of Exercise per Week: 0 days Minutes of Exercise per Session: 0 min Stress: No Stress Concern Present (05/01/2025) [employer] [employer] - Occupational Stress Questionnaire Feeling of Stress : Not at all Received from [employer] ([place], [place], [place], [place]) Family and Community Support Intimate Partner Violence: Not At Risk (08/06/2024) Received from [employer] Humiliation, Afraid, Rape, and Kick questionnaire Fear of Current or Ex-Partner: No Emotionally Abused: No Physically Abused: No Sexually Abused: No Housing Stability: Low Risk (08/06/2024) Received from [employer] Housing Stability Vital Sign Unable to Pay for Housing in the Last Year: No Number of Places Lived in the Last Year: 1 Unstable Housing in the Last Year: No ROS General: appears in no acute distress Skin: warm, dry and intact Head: normocephalic, without obvious abnormality, atraumatic Lungs: breathing unlabored Neurologic: sensation grossly normal, LE exam separate Extremities/Muscoskeletal: see focused exam Vitals: 05/01/25 1320 05/01/25 1409 05/01/25 1506 05/01/25 1716 BP: 108/55 BP Location: Left arm Patient Position: Lying right side Pulse: 99 93 89 84 Resp: Temp: TempSrc: SpO2: Weight: Height: Physical Exam General: Skyler appears in no acute distress Skin: warm, dry, and intact Cardio: RRR via radial pulse Head: Normocephalic, without obvious abnormality, atraumatic Neurological: sensation diminished Lungs: Unlabored Extremities/Musculoskeletal: FOCUSED LOWER EXTREMITY EXAM: Vascular: Pedal pulses diminished for dorsalis pedis and posterior tibial arteries bilaterally. Capillary refill time < 3 secs. No vascular lesions of varicosities bilaterally. Msk: Muscle strength 4/5 for lower extremity extrinsic musculature bilaterally. Range of motion is within normal limits for the ankle joint, midtarsal joint, and metatarsal phalangeal joints. Neuro: Sensation diminished to light touch. Deep tendon reflexes intact bilaterally. Dermatological: Left TMA wound dehiscence with necrotic wound bed, no expressible purulence, no malodor, no calor, minimal drainage, sutures in place. Patient verbally consented permission allowing today's photographs - using the [employer] mathew. Lab and radiographic data reviewed. Thank you for asking me to participate in your patient's care. Jovanni Montesinos APRN 05/01/2025 Cosigned by Nigel Onofre DPM at 05/01/2025 9:45 PM EDT Associated attestation - Nigel Onofre DPM - 05/01/2025 9:45 PM EDT Per STEPHANIE Montesinos. Patient with failing TMA in setting of PAD and prior vascular invention. Recheck arterial ultrasound, anticipate vascular consultation to review remaining salvage options. Patient high risk for limb loss. documented in this encounter Nursing Notes * Camryn Frey RN - 05/24/2025 2:55 PM EDT Per Pt report pain was worsening after PRN meds administration in the left knee. Dr. Wolf made aware, New meds ordered. Dr. Justice was made aware. Anes reblocked the pt and ordered some new meds. New meds administered. Family made aware. documented in this encounter ED Notes * Donnie Kaur MD - 04/30/2025 2:42 PM EDT Images from the original note were not included. CC: Chief Complaint Patient presents with Wound Dehiscence Pt presents per ems from [facility], toes amputated on left foot, here for wound check. History obtained via patient. History limitations HPI: Skyler Bautista is a 84 y.o. female with a past medical history significant for the below pertinent for atrial fibrillation, CHF, CAD, prior cardiac arrest who comes from rehab facility at [facility] due to wound dehiscence and concern for wound infection. Patient had a left transmetatarsal amputation of the left foot for gangrene due to peripheral vascular disease and foot ulceration. The wounddehisced and plan was to have patient taken back at some point to the operating room by Dr. Perez.Family concern for signs of infection. Patient with pain. I reviewed the patient's recent medical record which revealed: See Above. Past Medical History: Diagnosis Date A-fib (HCC) Arthritis Blood circulation, collateral CAD (coronary artery disease) Cardiac dysrhythmia Carotid artery occlusion CHF (congestive heart failure) (HCC) Diabetes mellitus (HCC) not currently on meds,rehab discontued Difficult intravenous access possible use of iv therapy/ultrasound to help with venous access. RIVERA (dyspnea on exertion) Encounter for blood transfusion Fatty liver Glaucoma Heartburn Hyperlipidemia Hypertension Liver disease Mixed hyperlipidemia Peripheral vascular disease Renal disorder Renal insufficiency Shortness of breath Sleep apnea pt has cpap, but is not using. Stroke (HCC) pt's states around 3 years ago. Urinary incontinence Urinary tract infection ROS: All Pertinent ROS Negative Unless otherwise stated within HPI. VITALS: Vitals: 04/30/25 1443 04/30/25 1530 04/30/25 1618 04/30/25 1630 BP: 108/66 121/78 Pulse: 134 135 133 Resp: 18 16 12 Temp: 97.6 ??F (36.4 ??C) TempSrc: Oral SpO2: 99% 100% Weight: 117 lb (53.1 kg) Height: 5' 2 (1.575 m) 04/30/25 1700 04/30/25 1730 04/30/25 1800 04/30/25 1830 BP: 122/75 131/72 121/80 Pulse: 133 128 126 Resp: 15 19 8 16 Temp: TempSrc: SpO2: 100% 100% 99% Weight: Height: 04/30/25 1845 04/30/25 1900 04/30/25 1915 04/30/25 1930 BP: 123/89 126/69 115/73 124/77 Pulse: 102 78 127 128 Resp: 23 15 16 14 Temp: TempSrc: SpO2: 100% 100% 97% 100% Weight: Height: 04/30/25 2000 04/30/25202904/30/25209904/30/25 2130 BP: 117/83 126/88 131/90 115/75 Pulse: 93 120 128 128 Resp: 18 16 15 12 Temp: TempSrc: SpO2: 99% 100% 99% 99% Weight: Height: 04/30/25 2200 04/30/25 2242 BP: 127/64 Pulse: 99 Resp: 16 Temp: 97.3 ??F (36.3 ??C) TempSrc: Oral SpO2: 98% Weight: 120 lb 11.2 oz (54.7 kg) Height: 5' 2 (1.575 m) Physical Exam Vitals reviewed. Constitutional: General: She is not in acute distress. Appearance: She is not ill-appearing or toxic-appearing. HENT: Head: Normocephalic and atraumatic. Eyes: Extraocular Movements: Extraocular movements intact. Cardiovascular: Rate and Rhythm: Regular rhythm. Tachycardia present. Pulmonary: Effort: Pulmonary effort is normal. No respiratory distress. Breath sounds: No wheezing or rales. Abdominal: General: There is no distension. Palpations: Abdomen is soft. Tenderness: There is no abdominal tenderness. There is no guarding or rebound. Musculoskeletal: General: Normal range of motion. Cervical back: Normal range of motion. Skin: General: Skin is warm. Neurological: General: No focal deficit present. Mental Status: She is alert. Mental status is at baseline. Psychiatric: Mood and Affect: Mood is anxious. Behavior: Behavior normal. LABS/IMAGING: Reviewed (See Orders) XR FOOT LEFT AP LATERAL AND OBLIQUE Final Result No radiographic evidence of recurrent osteomyelitis. - Note: Radiology results need to be interpreted within a comprehensive clinical context. If you have questions about the radiology report, please contact the office of the ordering clinician. XR CHEST AP PORTABLE Final Result No acute finding. - Note: Radiology results need to be interpreted within a comprehensive clinical context. If you have questions about the radiology report, please contact the office of the ordering clinician. EK EKG 12 LEAD ED Interpretation Atrial flutter with 2-1 AV block. Ventricular rate persistently at 134. Final Result [facility] Test Date: 2025-04-30 Pat Name: SKYLER BAUTISTA Department: DEPID Room: 3326 Gender: Female Directory Carrier: CHANTEL : 1940 Requested By: DONNIE PLUMMER Order Number: [id number] Reading MD: Isidro Kennedy Measurements Intervals Cecil Rate: 134 P: 203 GA: 145 QRS: -6 QRSD: 93 T: -78 QT: 333 QTc: 499 Interpretive Statements SINUS TACHYCARDIA NONSPECIFIC ST & T-WAVE ABNORMALITY Electronically Signed On 04-30-2025 22:14:02 EDT by Isidro Kennedy Abnormal Labs Reviewed CBC WITH DIFF - Abnormal; Notable for the following components: Result Value RBC 2.64 (*) Hgb 10.0 (*) Hct 30.5 (*) MCV 115.5 (*) MCH 37.9 (*) RDW 17.6 (*) Platelet 108 (*) All other components within normal limits COMPREHENSIVE METABOLIC PANEL - Abnormal; Notable for the following components: Total CO2 21 (*) Calcium 8.6 (*) Glucose Lvl 119 (*) BUN 36 (*) eGFR (CKD-EPIcr 2020) 52 (*) All other components within normal limits LACTIC ACID - Abnormal; Notable for the following components: Lactic Acid 2.3 (*) All other components within normal limits BLOOD GAS, VENOUS - Abnormal; Notable for the following components: pO2 Venous <42 (*) CO2 Total Martín 24 (*) O2 Sat. Venous 20.2 (*) All other components within normal limits GLUCOSE METER POC - Abnormal; Notable for the following components: Glucose Meter POC 117 (*) All other components within normal limits MEDICATIONS ADMINISTERED: Medications sodium chloride 0.9% syringe 5-10 mL (has no administration in time range) sodium chloride 0.9% IV line flush 50 mL (has no administration in time range) metroNIDAZOLE (FLAGYL) IVPB 500 mg (0 mg Intravenous Stopped 04/30/252254) sodium chloride 0.9% syringe 5-10 mL (has no administration in time range) sodium chloride 0.9% IV line flush 50 mL (50 mL Intravenous IV Started 04/30/252223) ceFEPIme (MAXIPIME) 2 g in sterile water 19 mL IVP (2 g Intravenous Given 04/30/251813) Followed by ceFEPIme (MAXIPIME) 2 g/100 mL IVPB (has no administration in time range) vancomycin in dextrose 5% (VANCOCIN) premix IVPB 500 mg (has no administration in time range) dextrose 50 % solution 25 mL (has no administration in time range) glucagon (GLUCAGEN) injection 1 mg (has no administration in time range) And sterile water injection 1 mL (has no administration in time range) acetaminophen (TYLENOL) tablet 650 mg (has no administration in time range) oxyCODONE (ROXICODONE) immediate release tablet 5 mg (5 mg Oral Given 04/30/252205) morphine injection 2 mg (2 mg Intravenous Given 04/30/252303) Or morphine injection 3-4 mg ( Intravenous See Alternative 04/30/252303) insulin aspart U-100 (NovoLOG) injection 1-10 Units ( Subcutaneous Not Given 04/30/252099) atorvastatin (LIPITOR) tablet 40 mg (40 mg Oral Given 04/30/252302) carvediloL (COREG) tablet 12.5 mg (12.5 mg Oral Given 04/30/252302) dorzolamide-timoloL (COSOPT) 22.3-6.8 mg/mL ophthalmic solution 1 Drop (has no administration in time range) gabapentin (NEURONTIN) capsule 300 mg (300 mg Oral Given 04/30/252302) latanoprost (XALATAN) 0.005 % ophthalmic solution 1 Drop (has no administration in time range) pantoprazole (PROTONIX) tablet 40 mg (has no administration in time range) ranolazine (RANEXA) SR tablet 1,000 mg (has no administration in time range) vancomycin in dextrose 5% (VANCOCIN) premix IVPB 1,000 mg (0 mg Intravenous Stopped 04/30/251951) LORazepam (ATIVAN) tablet 0.5 mg (0.5 mg Oral Given 04/30/251733) acetaminophen (TYLENOL) tablet 650 mg (650 mg Oral Given 04/30/251818) sodium chloride 0.9 % 500 mL IV bolus ( Intravenous Stopped 04/30/251920) morphine injection 2 mg (2 mg Intravenous Given 04/30/252027) MEDICAL DECISION MAKING: Skyler Bautista is a 84 y.o. female who presents with the above. Patient is tachycardic and heart rate is locked in at 134 bpm. Suspect underlying atrial flutter with a 2-1 AV block. She does have a history of congestive heart failure. She was right with a 500 mL crystalloid bolus. She was provided with 0.5 mg of Ativan and reassessed with improvement of her tachycardia. Unclear if she spontaneously converted with some supplemental IV fluids. She is clinically nontoxic but does have concerning appearance of her right foot. She has exposure of fat, necrotic tissue and concern for possible infection. Podiatry was consulted. Patient started on broad-spectrum antibiotics. Sepsis labs obtained butunclear if patient is truly septic versus merely at risk of sepsis Patient be admitted to the hospital for further assessment evaluation by podiatry. Independent Imaging Interpretations/ED course: EKG Interpretation (if applicable): EK EKG 12 LEAD ED Interpretation by Donnie Kaur MD (04/30 1716) Atrial flutter with 2-1 AV block. Ventricular rate persistently at 134. Discussed Patient with another provider: Yes, . Social Determinants of Health: Limited access to transportation Care of patient discussed with nursing team and nursing documentation reviewed. Prescriptions Written: ED Current Prescriptions None In cases where narcotics are prescribed, [facility] report was obtained and reviewed. IMPRESSION: 1. Wound dehiscence 2. Typical atrial flutter (HCC) DISPOSITION: Admit Condition at Discharge/Transfer from Department: Stable Donnie Kaur MD Emergency Medicine 04/30/25 Donnie Kaur MD 04/30/25 7580 documented in this encounter Miscellaneous Notes * Utilization Review Notes - Felicia Urbano RN - 06/07/2025 10:19 AM EDT Patient admitted as observation 04/30, changed to inpatient 05/01 - inpatient order on chart - continued stay on telemetry unit NOTES: Per Hospitalist note: Doing fair Pain better Tolerated tryptalline fair Labs in AM SOB better Dispo: When bed available DC PLAN: CC following Actual Discharge Plan 06/06/25: CC Update, no bed at [facility] this date, post acute form completed, s/p AKA, will need ambulance transport, sister out of town, requests call when pt d/c, CC following. * Utilization Review Notes - Felicia Urbano RN - 06/04/2025 10:55 AM EDT Patient admitted as observation 04/30, changed to inpatient 05/01 - inpatient order on chart - continued stay on telemetry unit NOTES: Per Vascular Surgery MD: Patient does not require dressing on L AKA stump unless there is drainage. Please place betadine onincision daily while in hospital. Per Hospitalist MD note: Ready for discharge when / if?: volume better and SNF arranged Admitted on 04/30/2025: with: left foot infection requiring AKA. Issues with volume overload now. Diuresing. Should be ready for SNF 1-2 days. Estimated Date of Discharge: 06/04/2025 DC PLAN: CC following OT Recommendation High frequency, high intensity multi-disciplinary therapy for 15 hours per week. PT Recommendation High frequency, high intensity multi-disciplinary therapy for 15 hours per week. * Plan of Care - Lawrence Wolf MD - 06/03/2025 6:27 PM EDT Patient does not require dressing on L AKA stump unless there is drainage. Please place betadine onincision daily while in hospital. Lawrence Wolf MD * Utilization Review Notes - Felicia Urbano RN - 05/31/2025 9:18 AM EDT Patient admitted as observation 04/30, changed to inpatient 05/01 - inpatient order on chart - continued stay on telemetry unit VITALS: HR 110 LABS: PLT 86 MEDS: IV ABX (stop date 06/02) TESTS: EKG: ATRIAL FIBRILLATION WITH RAPID VENTRICULAR RESPONSE ABERRANT COMPLEXES VERSUS PVC'S ANTEROSEPTAL MYOCARDIAL INFARCTION, PROBABLY OLD NOTES: Per Hospitalist note: Disposition Perspective - Medically ready for discharge: No Anticipated ready for discharge timeframe?: 1-2 days Ready for discharge when / if?: ok with others and complete iv abx at SNF Estimated Date of Discharge: 05/31/2025 DC PLAN: CC following PT Recommendation High frequency, high intensity multi-disciplinary therapy for 15 hours per week. OT Recommendation High frequency, high intensity multi-disciplinary therapy for 15 hours per week. Actual Discharge Plan 05/29/25: CC Update, met with pt, sister in room, s/p AKA, [facility] and [facility] following, per pt and sister, [facility] is 1st choice if appropriate, anticipate need forambulance transport at d/c, CC following. * Query Response Document - Stephen Pickard MD - 05/28/2025 2:26 PM EDT [facility] CDI / HIM Coding Query Documentation PATIENT: SKYLER BAUTISTA : 1940 ADMIT DATE: 04/30/2025 4:07 PM DISCH DATE: RESPONDING PROVIDER #: [id number] PROVIDER QUERY RESPONSE TEXT: Clinically unable to determine CDI / HIM Coding QUERY TEXT: CDI Query To view the encounter for this patient, click the patient's name highlighted in blue. The purpose of this query is to clarify a documented diagnosis noted in the record. Admitted on 04/30 with diabetic foot infection, wound dehiscence (ED 04/30) Treatment included: Ancef (stopped), Zosyn IV, NS bolus, Vanc (stopped) Please indicate or further specify the status of the documented diagnosis: The patient's clinical indicators include: 05/26: ICU consult note: Hypotension may be related to anemia vs sepsis vs AI. Sepsis documented: 05/26 ICU consult note Infection documented: diabetic foot infection The following SIRS criteria are noted within 6 hours of each other: Temperature > 100.9 or <96.8: 05/24 1230: 96.3 WBC > 12,000 or <4,000 OR >10% Bands: 05/24 1355: 3.8 Plus, the following severe sepsis criteria are noted within 6 hours of the above criteria: End organ dysfunction Platelets < 100,000: 05/24 1355: 64 Organization?s approved guideline: Sepsis is defined as a life-threatening organ dysfunction caused by a dysregulated host response toa suspected or confirmed infection. PLEASE ALSO DOCUMENT DIAGNOSIS IN PROVIDER NOTES AND/ OR D/C SUMMARY This electronic query and response are a permanent part of the medical record. Please do not updatethe Problem List as your response. The Problem List is dynamic and is not a permanent part of this Date of Service. An unanswered query is considered a non-response. Thank you for your assistance. (For questions or assistance please contact Samuel Cota [facility] Horticultural Worker [phone]) Options provided: -- Sepsis associated with acute sepsis related organ dysfunction is ruled in and present on admission -- Sepsis associated with acute sepsis related organ dysfunction is ruled in and NOT present on admission -- Sepsis associated with acute sepsis related organ dysfunction is ruled in and unable to determine present on admission status -- Sepsis associated with acute sepsis related organ dysfunction is ruled out -- SIRS due to infectious process without sepsis -- Clinically unable to determine -- Other - I will add my own diagnosis -- Disagree - Not applicable / Not valid Query created by: Cely Fallon on 05/27/2025 9:32 AM Electronically signed by: Stephen Pickard MD 05/28/2025 2:25 PM * Utilization Review Notes - Deisi Jon RN - 05/28/2025 10:17 AM EDT CONTINUED STAY REVIEW ON ICU ADMITTED OBSERVATION ON 04/30, CHANGED TO INPATIENT ON 05/01 Diabetic foot infection (HCC) S/P transmetatarsal amputation of foot, left (HCC) - Wound dehiscence over previous left TMA site. ESR, CRP normal. WBC wnl. Afebrile. No acute infection. Not on abx - podiatry saw - vascular following - MRI L foot 05/03 with mild marrow edema of metatarsal distal stump margins without evidence of osteomyelitis - Angiogram performed, minimal blood flow past the knee, recommended AKA - s/p AKA 05/24 - pain remains an issue. Will adjust meds as BP better. PAD (peripheral artery disease) - vascular following - severe disease - AKA as above Acute respiratory failure with hypoxemia (HCC) Acute pulmonary edema (HCC) - transferred to MICU 05/26 with hypotension and hypoxia - pulm edema on cxr - echo with EF 55-60%, indeterminate diastolic function, pulm pressure 41 mmHg - limited diuresis due to below - satting well now on 2L IV FENTANYL X 3 DILAUDID CERTIFIED CREDIT COUNSELOR ORDERED IV ZOSYN TID IV VANCOMYCIN Q24H HGB 8.0, 8.4, 7.7, 7.3 HCT 20.0, 19.9 PLT 73, 77 PT Recommendation High frequency, high intensity multi-disciplinary therapy for 15 hours per week. CC FOLLOWING FOR DC NEEDS * Utilization Review Notes - Adry Pro RN - 05/24/2025 4:11 PM EDT CONTINUED STAY REVIEW INPT STATUS SINCE 05/01 Diabetic foot infection ([facility]) S/P transmetatarsal amputation of foot, left ([facility]) - Wound dehiscence over previous left TMA site. ESR, CRP normal. WBC wnl. Afebrile. No acute infection. Not on abx - podiatry saw - vascular following - MRI L foot 05/03 with mild marrow edema of metatarsal distal stump margins without evidence of osteomyelitis - Angiogram performed, minimal blood flow past the knee, recommend AKA - planning AKA today PAD (peripheral artery disease) - vascular following - severe disease - plan for amputation as above Paroxysmal atrial fibrillation ([facility]) - 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 - rate controlled on coreg Type 2 diabetes mellitus, without long-term current use of insulin ([facility]) - A1c 5.3 - diet controlled - not following FSBS Hypertension associated with diabetes ([facility]) - at goal on current rx Chronic heart failure with preserved ejection fraction ([facility]) - Echo 2023 normal EF. - Euvolemic on exam Stage 3a chronic kidney disease ([facility]) - Baseline approx 0.9-1.2. - stable 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 - History of CABG - continue lipitor, coreg, ranexa - no chest pain Anemia in other chronic diseases classified elsewhere Pancytopenia ([facility]) - low but stable - b12, folate, iron ok. Trasferrin down - INR up just a little. Smear ok Dispo: Handoff Completed: No Disposition Perspective - Medically ready for discharge: No Anticipated ready for discharge timeframe?: 2-3 days Ready for discharge when / if?: pending progress after surgery Estimated Date of Discharge: 05/26/2025 * Plan of Care - Lawrence Wolf MD - 05/24/2025 11:56 AM EDT Called patient's sister and updated her post-op. All questions answered. Lawrence Wolf MD * Plan of Care - Daniela Lamb RN - 05/24/2025 11:18 AM EDT Problem: Potential for Infection Description: Related to: -Invasive lines (IV, CVD, Indwelling Urinary Catheter) -Alteration in skin integrity related to positioning during procedure -Surgical Site Goal: Patient will be free from infection 05/24/2025 1118 by Nurse Daniela RN Outcome: Completed 05/24/2025 111 by Nurse Daniela RN Outcome: Progressing Problem: Potential for injury Description: Related to: Procedure Goal: Patient is free from signs or symptoms of physical injury unrelated to the intended therapeutic effects of the procedure. 05/24/2025 1118 by Nurse Daniela RN Outcome: Completed 05/24/2025 1118 by Nurse Daniela RN Outcome: Progressing * Plan of Care - Lawrence Wolf MD - 05/22/2025 7:41 AM EDT Lina AKA scheduled for Tue at 0800. Lawrence Wolf MD * Plan of Care - Lawrence Wolf MD - 05/21/2025 10:27 AM EDT Patient was not agreeable to AKA yesterday during day so case that was scheduled today was cancelled. Vascular contacted at 1730 yesterday stating patient would like to have sugery on 05/21. Unfortunately, the surgery was already cancelled per patient's request. Will work on rescheduling AKA. Lawrence Wolf MD * Utilization Review Notes - Adry Pro RN - 05/21/2025 9:04 AM EDT Images from the original note were not included. CONTINUED STAY REVIEW INPT STATUS SINCE 05/01 Disposition Perspective - Medically ready for discharge: No Anticipated ready for discharge timeframe?: pending AKA timing Ready for discharge when / if?: gets AKA, then subsequent dispo Admitted on 04/30/2025: DFI sp TMA, needs AKA. Initially declined, now agreeable to AKA but does notwant to have until sons are available. Timing TBD Estimated Date of Discharge: 05/24/2025 Patient is not ready for discharge Estimated Date of Discharge: 05/24/2025 Assessment/Plan: Assessment & Plan Diabetic foot infection (HCC) S/P transmetatarsal amputation of foot, left (HCC) Wound dehiscence over previous left TMA site. ESR, CRP normal. WBC wnl. Afebrile. No acute infection. - podiatry consulted - vascular consulted - MRI L foot 05/03 with mild marrow edema of metatarsal distal stump margins without evidence of osteomyelitis - Angiogram performed, minimal blood flow past the knee, recommend AKA but pt declining -Pain control ongonig ; increased oxycodone -D/w vascular surgery as pt now agreeable to AKA, pt states will happen 05/24 (?) - was on schedule for AM but declining to have AKA tomorrow , d/w vascular PAD (peripheral artery disease) History of angiogram 01/2025. - vascular consulted - arterial studies 05/02 with significant PAD - COMPLIANCE PARALEGAL stenosis Patent popliteal and TPT with severe stenosis Patent proximal QUALITY CONTROL ASSOCIATE but occluded distally without reconstitution Patent DAREN with multifocal severe stenosis, occlusion at the level of the ankle and no distal reconstitution Significant small vessel disease in L foot Paroxysmal atrial fibrillation (HCC) Heart rate controlled. 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 - QUALITY CONTROL ASSOCIATE coreg - cardiac monitoring -Rate controlled 05/20/25 Type 2 diabetes mellitus, without long-term current use of insulin ([facility]) Last A1c 4.8 in 03/2024. QUALITY CONTROL ASSOCIATE meds include none. - hold off on FSBS, correctional algorithm - rpt A1c 5.3 - stable 05/20/25 Hypertension associated with diabetes ([facility]) Well controlled. - QUALITY CONTROL ASSOCIATE coreg - monitor and adjust as needed -BP stable 05/20/25 Chronic heart failure with preserved ejection fraction ([facility]) Echo 2023 normal EF. Euvolemic on exam - monitor I/O, daily weights - diuresis: QUALITY CONTROL ASSOCIATE lasix on hold - QUALITY CONTROL ASSOCIATE coreg -Stable 05/20/25 Stage 3a chronic kidney disease (HCC) Cre 1.05 at admit. Baseline approx 0.9-1.2. -Cr 0.91 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 History of CABG - continue lipitor, coreg, ranexa Wound dehiscence Continue to monitor Cont neurontin 400TID Increased oxycodone 10>15mg dose, improved sx Anemia in other chronic diseases classified elsewhere Continue to monitor Hgb 8.7> 7.6, no report of blood loss -Check b12/folate/iron Loose stools -Back off BM meds today Dispo: Pending AKA timing/plans * Utilization Review Notes - Dianne Moreno RN - 05/17/2025 4:58 PM EDT Inpt order on chart. [facility] floor. Cont stay review for diabetic foot infection s/p transmetatarsal amputation of foot, left, PAD. Vascular surgery following. direct mail coordinator to follow for dc planning. * Plan of Care - Lawrence Wolf MD - 05/17/2025 3:53 AM EDT Vascular was contacted that patient is now agreeable to L AKA. Will word on scheduling surgery, will update patient once it is scheduled. Lawrence Wolf MD * Utilization Review Notes - Milagro Blanc RN - 05/14/2025 9:25 AM EDT Images from the original note were not included. IP ORDER IN [facility] 05/01 CONT STAY REVIEW ON TCU LOS 13 DAYS PER MD NOTE Assessment & Plan Diabetic foot infection (HCC) S/P transmetatarsal amputation of foot, left (HCC) Wound dehiscence over previous left TMA site. ESR, CRP normal. WBC wnl. Afebrile. No acute infection. - podiatry consulted - vascular consulted - MRI L foot 05/03 with mild marrow edema of metatarsal distal stump margins without evidence of osteomyelitis - Angiogram performed, minimal blood flow past the knee, recommend AKA PER PA NOTE Discussed situation with patient and son. Discussed L AKA vs BKA. I recommend an AKA. Discussed that she would not likely benefit from BKA as her age and frailty significantly decreases likelihood ofambulating with a prosthetic and has a higher risk of not healing as well as a higher risk of complication if patient were to fall on the BKA stump. All questions were answered. Patient states she needs more time to think about it. Vascular will sign off for now. If patient agreeable to proximal amputation, please re-engage vascular surgery. * Plan of Care - Lawrence Wolf MD - 05/10/2025 6:14 PM EDT I had an extensive discussion with patient's family post-procedure. I discussed the angiogram findings- the left COMPLIANCE PARALEGAL stenosis could be treated with an endarterectomy, the popliteal artery and TPT stenosis could be treated with repeat angioplasty, and the DAREN could be treated via retrograde access. However, the QUALITY CONTROL ASSOCIATE and DAREN are distally occluded without reconstitution, and even with the catheter inthe peroneal artery, there was minimal filling of the forefoot due to small vessel disease. I do not think a femoral endarterectomy and an antegrade intervention would salvage her TMA with the extentof small vessel disease that is present in the foot. Patient has previously stated multiple times- first stated months ago- that she would not be agreeable to a proximal amputation. I expressed that this is certainly an acceptable decision but I do want to make sure the patient and family are educated on all options and then the best decision for the patient can be made. Unfortunately, I do thinkthe patient's dementia has progressed over the last few months as she stated she had no memory of meeting me each of the 4 times I saw her in the past week. I explained that the family should be involved with palliative care to help the patient make the best decision for her, and the decision should ultimately be what she would want in this situation. I also discussed the risks and benefits of anAKA vs BKA with the family. I do not think the patient would benefit from a BKA regarding an ambulatory perspective as she would not likely to rehab well given her age and frailty. Performing a BKA in this situation has minimal benefit but poses the risk of non-healing and falling on it, which would prompt further surgery. While the patient does have L COMPLIANCE PARALEGAL disease, her L femoral pulse is still palpable so there is a good chance to heal an AKA. If patient would like to pursue a proximal amputation, I recommend an above knee amputation if patient would like to pursue all surgical options. All questions were answered. I also discussed getting palliative care involved to help with further discus sions and patient's family would like them to be consulted. I expressed that family should continueto be involved with palliative care discussions so the best course of action can be taken from the patient's wishes. 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 ESR, CRP normal. WBC wnl. Afebrile. No acute infection. - podiatry consulted - vascular consulted - MRI L foot 05/03 with mild marrow edema of metatarsal distal stump margins without evidence of osteomyelitis - Angiogram scheduled for Tuesday - pt declines proximal amputation (will continue to discuss), no plans for revision unless able to improve blood flow to foot - no abx at this time PAD (peripheral artery disease) History of angiogram 01/2025. - vascular consulted - arterial studies 05/02 with significant PAD - plans for angiogram under anesthesia this week, April 10 - continue lipitor Paroxysmal atrial fibrillation (HCC) Heart rate controlled. 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 - QUALITY CONTROL ASSOCIATE coreg - cardiac monitoring -Heart rate 75 Type 2 diabetes mellitus, without long-term current use of insulin (HCC) Last A1c 4.8 in 03/2024. QUALITY CONTROL ASSOCIATE meds include none. - hold off on FSBS, correctional algorithm - rpt A1c 5.3 Hypertension associated with diabetes (HCC) Well controlled. - QUALITY CONTROL ASSOCIATE coreg - monitor and adjust as needed -Blood pressure 128/66 Chronic heart failure with preserved ejection fraction (HCC) Echo 2023 normal EF. Euvolemic on exam - monitor I/O, daily weights - diuresis: QUALITY CONTROL ASSOCIATE lasix on hold - QUALITY CONTROL ASSOCIATE coreg Stage 3a chronic kidney disease (HCC) Cre 1.05 at admit. Baseline approx 0.9-1.2. - caution with contrast - note plans for angiogram - monitor renal function closely - avoid hypotension, nephrotoxins as able 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 History of CABG - continue lipitor, coreg, ranexa - cardiac monitoring Wound dehiscence Continue to monitor Anemia in other chronic diseases classified elsewhere Continue to monitor hemoglobin appears stable at the moment Diet: Regular Diet NPO: With Meds Code Status: Full Code * Plan of Care - Lawrence Wolf MD - 05/09/2025 4:35 PM EDT Patient seen and examined. Plan for LLE angiogram tomorrow with general anesthesia. All questions answered. Patient at high risk of limb loss. Lawrence Wolf MD * Utilization Review Notes - Adry Pro RN - 05/07/2025 10:14 AM EDT CONTINUED STAY REVIEW INPT STATUS SINCE 05/01 Diabetic foot infection (HCC) S/P transmetatarsal amputation of foot, left (HCC) Wound dehiscence over previous left TMA site. ESR, CRP normal. WBC wnl. Afebrile. No acute infection. - podiatry consulted - vascular consulted - MRI L foot 05/03 with mild marrow edema of metatarsal distal stump margins without evidence of osteomyelitis - note plans for rpt angiogram under anesthesia this week - further plans based on results - pt declines proximal amputation (will continue to discuss), no plans for revision unless able to improve blood flow to foot - no abx at this time PAD (peripheral artery disease) History of angiogram 01/2025. - vascular consulted - arterial studies 05/02 with significant PAD - plans for angiogram under anesthesia this week - continue lipitor Paroxysmal atrial fibrillation ([facility]) Heart rate controlled. 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 - QUALITY CONTROL ASSOCIATE coreg - cardiac monitoring Type 2 diabetes mellitus, without long-term current use of insulin ([facility]) Last A1c 4.8 in 03/2024. QUALITY CONTROL ASSOCIATE meds include none. - hold off on FSBS, correctional algorithm - rpt A1c 5.3 Hypertension associated with diabetes ([facility]) Well controlled. - QUALITY CONTROL ASSOCIATE coreg - monitor and adjust as needed Chronic heart failure with preserved ejection fraction ([facility]) Echo 2023 normal EF. Euvolemic on exam - monitor I/O, daily weights - diuresis: QUALITY CONTROL ASSOCIATE lasix on hold - QUALITY CONTROL ASSOCIATE coreg Stage 3a chronic kidney disease ([facility]) Cre 1.05 at admit. Baseline approx 0.9-1.2. - caution with contrast - note plans for angiogram - monitor renal function closely - avoid hypotension, nephrotoxins as able 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 History of CABG - continue lipitor, coreg, ranexa - cardiac monitoring Dispo: Continue current level of care Angiogram on Tuesday * Plan of Care - Dacia Mills DPM - 05/06/2025 1:10 PM EDT No additional interventions warranted from a podiatry standpoint unless blood flow improves. Will sign-off. Please re-consult if clinical condition warrants or if perfusion to the foot improves. Dacia Mills DPM SEP Podiatric Surgery 05/06/2025 * Utilization Review Notes - Dacia Simmons, MAHENDRA - 05/03/2025 9:43 AM EDT ADMITTED OBS ON 04/30 CHANGED TO INPT ON 05/01. CONT STAY MED SURG MONITORED 05/02. CONSULT VASCULAR SURGERY DC PLAN: CC FOLLOWING PER HOSPITALIST NOTE 05/02 = Diabetic foot infection (HCC) S/P transmetatarsal amputation of foot, left (HCC) Wound dehiscence over previous left TMA site ESR, CRP normal WBC not elevated 05/02/2025 Podiatry: plan pending vascular studies Hold abx PAD (peripheral artery disease) History of angiogram 01/2025 Significant dz noted on u/s Vascular consult Dispo: pending podiatry, vascular plan * Utilization Review Notes - Stacie Mejia RN - 05/01/2025 3:59 PM EDT +OBS ORDER TO MED/SURG ON 04/30 CONT STAY REVIEW CHANGED TO INPATIENT ON 05/01 ADMITTED FOR DIABETIC FOOT INFECTION S/P TMA 03/09 RECENT STAPH INFECTION OF TOE WOUND CARE FOLLOWING CEFEPIME IV TID FLAGYL IV TID VANCOMYCIN IV MORPHINE IV X 2 PLAN RETURN TO SNF CC TO FOLLOW FOR DC * Utilization Review Notes - Stacie Mejia RN - 05/01/2025 10:47 AM EDT +OBS ORDER TO MED/SURG ON 04/30 ADMISSION REVIEW ADMITTED FOR DIABETIC FOOT INFECTION RECENT STAPH INFECTION OF TOE WOUND CARE FOLLOWING Xray neg osteomyelitis CEFEPIME IV TID FLAGYL IV TID VANCOMYCIN IV CC TO FOLLOW FOR DC documented in this encounter Plan of Treatment Upcoming Encounters Date Type Department Care Team (Late st Contact Info) Description 07/16/2025 10:00 AM EDT Office Visit [facility] [address] [facility] [place] [phone] Renae Durand, COIN COLLECTOR [address] [facility] [place] [id number] Pending Results Name Type Priority Associated Diagnoses Date /Time ECG AND WAVEFORMS - TELEMETRY Point of Care Testing Routine 06/09/2025 8:24 PM EDT documented as of this encounter Procedures Procedure Name Priority Date/Time Associated Diagnosis Comments SCANNED RHYTHM STRIPS 06/11/2025 1:28 PM EDT CBC Routine 06/10/2025 10:32 AM EDT MAGNESIUM LEVEL Routine 06/10/2025 10:32 AM EDT COMPREHENSIVE METABOLIC PANEL Routine 06/10/2025 10:32 AM EDT ECG AND WAVEFORMS - TELEMETRY Routine 06/10/2025 7:00 AM EDT XR CHEST AP PORTABLE STAT 06/09/2025 9:10 PM EDT ECG AND WAVEFORMS - TELEMETRY Routine 06/09/2025 8:24 PM EDT URINALYSIS REFLEX Routine 06/09/2025 11:46 AM EDT UA W/REFLEX TO CULTURE Routine 11:46 AM EDT EXTRA HUITRON URINE CX Routine 06/09/2025 11:46 AM EDT URINE CULTURE (NO STAIN) Routine 06/09/2025 11:46 AM EDT ECG AND WAVEFORMS - TELEMETRY Routine 06/09/2025 7:00 AM EDT ECG AND WAVEFORMS - TELEMETRY Routine 06/08/2025 8:23 PM EDT ECG AND WAVEFORMS - TELEMETRY Routine 06/08/2025 8:24 AM EDT ECG AND WAVEFORMS - TELEMETRY Routine 06/07/2025 9:25 PM EDT ECG AND WAVEFORMS - TELEMETRY Routine 06/07/2025 9:25 PM EDT ECG AND WAVEFORMS - TELEMETRY Routine 06/07/2025 8:07 AM EDT BASIC METABOLIC PANEL Timed 06/07/2025 7:09 AM EDT ECG AND WAVEFORMS - TELEMETRY Routine 06/06/2025 7:05 PM EDT ECG AND WAVEFORMS - TELEMETRY Routine 06/06/2025 7:05 PM EDT ECG AND WAVEFORMS - TELEMETRY Routine 06/06/2025 7:34 AM EDT ECG AND WAVEFORMS - TELEMETRY Routine 06/05/2025 7:05 PM EDT CBC Routine 06/05/2025 7:27 AM EDT MAGNESIUM LEVEL Routine 06/05/2025 7:27 AM EDT COMPREHENSIVE METABOLIC PANEL Routine 06/05/2025 7:27 AM EDT ECG AND WAVEFORMS - TELEMETRY Routine 06/05/2025 7:09 AM EDT ECG AND WAVEFORMS - TELEMETRY Routine 06/04/2025 7:10 PM EDT XR CHEST PA AND LATERAL PAULETTE 06/04/20 5:07 PM EDT CBC Early AM 06/04/2025 7:52 AM EDT RENAL FUNCTION PANEL Early AM 06/04/2025 7:52 AM EDT ECG AND WAVEFORMS - TELEMETRY Routine 06/04/2025 7:29 AM EDT ECG AND WAVEFORMS - TELEMETRY Routine 06/03/2025 8:07 PM EDT ECG AND WAVEFORMS - TELEMETRY Routine 06/03/2025 7:00 AM EDT CBC Early AM 06/03/2025 5:56 AM EDT RENAL FUNCTION PANEL Early AM 06/03/2025 5:56 AM EDT ECG AND WAVEFORMS - TELEMETRY Routine 06/02/2025 7:00 PM EDT GLUCOSE METER POC Routine 06/02/2025 8:54 AM EDT ECG AND WAVEFORMS - TELEMETRY Routine 06/02/2025 7:03 AM EDT GLUCOSE METER POC Routine 06/01/2025 9:55 PM EDT ECG AND WAVEFORMS - TELEMETRY Routine 06/01/2025 7:00 PM EDT XR CHEST AP PORTABLE PAULETTE 06/01/2025 4:14 PM EDT GLUCOSE METER POC Routine 06/01/2025 2:54 PM EDT ECG AND WAVEFORMS - TELEMETRY Routine 06/01/2025 1:04 PM EDT ECG AND WAVEFORMS - TELEMETRY Routine 06/01/2025 12:35 PM EDT GLUCOSE METER POC Routine 06/01/2025 9:41 AM EDT ECG AND WAVEFORMS - TELEMETRY Routine 06/01/2025 7:00 AM EDT GLUCOSE METER POC Routine 05/31/2025 9:21 PM EDT ECG AND WAVEFORMS - TELEMETRY Routine 05/31/2025 7:00 PM EDT GLUCOSE METER POC Routine 05/31/2025 6:37 PM EDT GLUCOSE METER POC Routine 05/31/2025 4:29 PM EDT ECG AND WAVEFORMS - TELEMETRY Routine 05/31/2025 4:24 PM EDT ECG AND WAVEFORMS - TELEMETRY Routine 05/31/2025 4:23 PM EDT GLUCOSE METER POC Routine 05/31/2025 11:45 AM EDT ECG AND WAVEFORMS - TELEMETRY Routine 05/31/2025 10:35 AM EDT ECG AND WAVEFORMS - TELEMETRY Routine 05/31/2025 7:58 AM EDT CBC Early AM 05/31/2025 7:29 AM EDT RENAL FUNCTION PANEL Early AM 05/31/2025 7:29 AM EDT GLUCOSE METER POC Routine 05/30/2025 9:16 PM EDT ECG AND WAVEFORMS - TELEMETRY Routine 05/30/2025 7:03 PM EDT GLUCOSE METER POC Routine 05/30/2025 5:42 PM EDT GLUCOSE METER POC Routine 05/30/2025 11:32 AM EDT GLUCOSE METER POC Routine 05/30/2025 8:25 AM EDT ECG AND WAVEFORMS - TELEMETRY Routine 05/30/2025 7:00 AM EDT CBC Early AM 05/30/2025 7:00 AM EDT RENAL FUNCTION PANEL Early AM 05/30/2025 7:00 AM EDT GLUCOSE METER POC Routine 05/29/2025 9:42 PM EDT ECG AND WAVEFORMS - TELEMETRY Routine 05/29/2025 7:03 PM EDT GLUCOSE METER POC Routine 05/29/2025 5:39 PM EDT GLUCOSE METER POC Routine 05/29/2025 11:32 AM EDT GLUCOSE METER POC Routine 05/29/2025 7:20 AM EDT ECG AND WAVEFORMS - TELEMETRY Routine 05/29/2025 7:00 AM EDT IP CONSULT TO WOUND CARE Routine 05/29/2025 6:56 AM EDT VANCOMYCIN LEVEL AUC1 Timed 05/29/2025 5:55 AM EDT CBC Early AM 05/29/2025 5:55 AM EDT PHOSPHORUS LEVEL Early AM 05/29/2025 5:55 AM EDT MAGNESIUM LEVEL Early AM 05/29/2025 5:55 AM EDT BASIC METABOLIC PANEL Early AM 05/29/2025 5:55 AM EDT TROPONIN-T HIGH SENSITIVITY 2HR STAT 05/29/2025 2:[address] ANGIOGRAM PULMONARY W CONTRAST STAT 05/29/2025 1:07 AM EDT XR CHEST AP PORTABLE STAT 05/29/2025 12:53 AM EDT TROPONIN-T HIGH SENSITIVITY BASELINE W/ REFLEX STAT 05/29/2025 12:48 AM EDT HEMOGLOBIN AND HEMATOCRIT STAT 05/29/2025 12:48 AM EDT EK EKG 12 LEAD STAT 05/29/2025 12:28 AM EDT GLUCOSE METER POC Routine 05/29/2025 12:27 AM EDT ECG AND WAVEFORMS - TELEMETRY Routine 05/28/2025 8:59 PM EDT GLUCOSE METER POC Routine 05/28/2025 5:37 PM EDT HEMOGLOBIN PM Draw 05/28/2025 2:51 PM EDT GLUCOSE METER POC Routine 05/28/2025 11:11 AM EDT CBC Early AM 05/28/2025 5:35 AM EDT PHOSPHORUS LEVEL Early AM 05/28/2025 5:35 AM EDT MAGNESIUM LEVEL Early AM 05/28/2025 5:35 AM EDT BASIC METABOLIC PANEL Early AM 05/28/2025 5:35 AM EDT GLUCOSE METER POC Routine 05/28/2025 5:21 AM EDT GLUCOSE METER POC Routine 05/27/2025 11:12 PM EDT HEMOGLOBIN AND HEMATOCRIT Timed 05/27/2025 6:24 PM EDT GLUCOSE METER POC Routine 05/27/2025 6:02 PM EDT VANCOMYCIN LEVEL Timed 05/27/2025 12:01 PM EDT GLUCOSE METER POC Routine 05/27/2025 11:25 AM EDT HEMOGLOBIN AND HEMATOCRIT Timed 05/27/2025 9:56 AM EDT EC ECHOCARDIOGRAM COMPLETE W DOPPLER AND COLOR FLOW MAPPING STAT 05/27/2025 9:27 AM EDT GLUCOSE METER POC Routine 05/27/2025 5:09 AM EDT CBC Early AM 05/27/2025 3:25 AM EDT PHOSPHORUS LEVEL Early AM 05/27/2025 3:25 AM EDT MAGNESIUM LEVEL Early AM 05/27/2025 3:25 AM EDT BASIC METABOLIC PANEL Early AM 05/27/2025 3:25 AM EDT HEMOGLOBIN AND HEMATOCRIT Timed 05/27/2025 1:15 AM EDT GLUCOSE METER POC Routine 05/26/2025 11:17 PM EDT CORTISOL 60 MINUTES Routine 05/26/2025 7:36 PM EDT CORTISOL 30 MINUTES Routine 05/26/2025 7:05 PM EDT CORTISOL BASELINE Timed 05/26/2025 6:49 PM EDT CORTISOL BASELINE Timed 05/26/2025 6:49 PM EDT TROPONIN-T HIGH SENSITIVITY 6 HR Timed 05/26/2025 6:26 PM EDT HEMOGLOBIN AND HEMATOCRIT Timed 05/26/2025 6:26 PM EDT GLUCOSE METER POC Routine 05/26/2025 6:15 PM EDT XR CHEST AP PORTABLE STAT 05/26/2025 5:39 PM EDT STAPHYLOCOCCUS AUREUS SCREEN Routine 05/26/2025 4:24 PM EDT IP CONSULT TO PALLIATIVE CARE Routine 05/26/2025 4:21 PM EDT CALCIUM, IONIZED Routine 05/26/2025 4:17 PM EDT BB HISTORY CHECK STAT 05/26/2025 4:17 PM EDT POTASSIUM WHOLE BLOOD STAT 05/26/2025 4:17 PM EDT ABORH STAT 05/26/2025 4:17 PM EDT PT / INR Routine 05/26/2025 4:17 PM EDT FIBRINOGEN Routine 05/26/2025 4:17 PM EDT HEMOGLOBIN Routine 05/26/2025 4:17 PM EDT RED BLOOD CELLS REQUEST Routine 05/26/20 4:17 PM EDT ANTIBODY SCREEN IGG STAT 05/26/2025 4:17 PM EDT TYPE AND SCREEN STAT 05/26/2025 4:17 PM EDT IP CONSULT TO PHARMACY Routine 4:02 PM EDT ADRENOCORTICOTROPIC HORMONE -REF LAB Timed 05/26/2025 3:20 PM EDT TROPONIN-T HIGH SENSITIVITY 2HR Timed 05/26/2025 2:11 PM EDT HEMOGLOBIN Routine 05/26/2025 2:11 PM EDT CORTISOL Routine 05/26/2025 2:11 PM EDT HEPATIC FUNCTION PANEL Add-On 2:11 PM EDT BLOOD GAS ARTERIAL PAULETTE 05/26/2025 1:01 PM EDT TROPONIN-T HIGH SENSITIVITY BASELINE W/ REFLEX STAT 05/26/2025 1:00 PM EDT CBC Routine 05/26/2025 1:00 PM EDT PROCALCITONIN Routine 05/26/2025 1:00 PM EDT LACTIC ACID Routine 05/26/2025 1:00 PM EDT BASIC METABOLIC PANEL Routine 05/26/2025 1:00 PM EDT GLUCOSE METER POC Routine 05/26/2025 12:37 PM EDT EK EKG 12 LEAD STAT 05/26/2025 12:27 PM EDT BLOOD CULTURE (NO STAIN) STAT 05/26/2025 11:58 AM EDT BLOOD CULTURE (NO STAIN) STAT 05/26/2025 11:58 AM EDT URINALYSIS REFLEX Routine 05/26/2025 11:16 AM EDT UA W/REFLEX TO CULTURE Routine 11:16 AM EDT EXTRA HUITRON URINE CX Routine 05/26/2025 11:16 AM EDT URINE CULTURE (NO STAIN) Routine 05/26/2025 11:16 AM EDT XR CHEST AP PORTABLE PAULETTE 05/26/2025 11:04 AM EDT ECG AND WAVEFORMS - TELEMETRY Routine 05/26/2025 7:53 AM EDT CBC Early AM 05/26/2025 6:15 AM EDT RENAL FUNCTION PANEL Early AM 05/26/2025 6:15 AM EDT ECG AND WAVEFORMS - TELEMETRY Routine 05/25/2025 7:00 PM EDT ECG AND WAVEFORMS - TELEMETRY Routine 05/25/2025 7:57 AM EDT CBC Early AM 05/25/2025 6:50 AM EDT BASIC METABOLIC PANEL Early AM 05/25/2025 6:50 AM EDT ECG AND WAVEFORMS - TELEMETRY Routine 05/24/2025 7:00 PM EDT CBC Routine 05/24/2025 1:55 PM EDT GLUCOSE METER POC Routine 05/24/2025 11:39 AM EDT TRANSFUSE RED BLOOD CELLS Routine 05/24/2025 10:32 AM EDT TRANSFUSE RED BLOOD CELLS Routine 05/24/2025 8:49 AM EDT PATHOLOGY TISSUE REQUEST Routine 05/24/2025 8:41 AM EDT PAD (peripheral artery disease) Critical limb ischemia of left lower extremity (HCC) GA AMPUTATION THIGH THROUGH FEMUR ANY LEVEL 05/24/2025 8:06 AM EDT PAD (peripheral artery disease) Critical limb ischemia of left lower extremity (HCC) Special Needs pre op block per anethesia [facility] ANES GUIDANCE FOR NERVE BLOCK STAT 05/24/2025 7:18 AM EDT ECG AND WAVEFORMS - TELEMETRY Routine 05/24/2025 7:05 AM EDT GLUCOSE METER POC Routine 05/24/2025 6:32 AM EDT ECG AND WAVEFORMS - TELEMETRY Routine 05/23/2025 7:24 PM EDT URINALYSIS REFLEX Routine 05/23/2025 3:31 PM EDT UA W/REFLEX TO CULTURE Routine 3:31 PM EDT EXTRA HUITRON URINE CX Routine 05/23/2025 3:31 PM EDT URINE CULTURE (NO STAIN) Routine 05/23/2025 3:31 PM EDT BB HISTORY CHECK Routine 05/23/2025 10:33 AM EDT PAD (peripheral artery disease) Preop testing ABORH Routine 05/23/2025 10:33 AM EDT PAD (peripheral artery disease) Preop testing RED BLOOD CELLS REQUEST PAULETTE 05/23/20 25 10:33 AM EDT RED BLOOD CELLS REQUEST PAULETTE 05/23/20 25 10:33 AM EDT RED BLOOD CELLS REQUEST PAULETTE 05/23/20 25 10:33 AM EDT ANTIBODY SCREEN IGG Routine 05/23/2025 10:33 AM EDT PAD (peripheral artery disease) Preop testing TYPE AND SCREEN Routine 05/23/2025 10:33 AM EDT PAD (peripheral artery disease) Preop testing ECG AND WAVEFORMS - TELEMETRY Routine 05/23/2025 7:30 AM EDT CBC Early AM 05/23/2025 7:03 AM EDT ECG AND WAVEFORMS - TELEMETRY Routine 05/22/2025 7:59 PM EDT ECG AND WAVEFORMS - TELEMETRY Routine 05/22/2025 7:31 AM EDT CBC Early AM 05/22/2025 6:42 AM EDT PT / INR Early AM 05/22/2025 6:42 AM EDT FIBRINOGEN Early AM 05/22/2025 6:42 AM EDT MAGNESIUM LEVEL Early AM 05/22/2025 6:42 AM EDT BASIC METABOLIC PANEL Early AM 05/22/2025 6:42 AM EDT ECG AND WAVEFORMS - TELEMETRY Routine 05/21/2025 7:40 PM EDT IRON+TIBC Early AM 05/21/2025 7:18 AM EDT VITAMIN B12/ FOLIC ACID Early AM 05/21/20 7:18 AM EDT CBC Early AM 05/21/2025 7:18 AM EDT PERIPHERAL SMEAR/PATH REVIEW Add-On 05/21/2025 7:18 AM EDT CBC WITH DIFF Add-On 05/21/2025 7:18 AM EDT MAGNESIUM LEVEL Early AM 05/21/2025 7:18 AM EDT BASIC METABOLIC PANEL Early AM 05/21/2025 7:18 AM EDT ECG AND WAVEFORMS - TELEMETRY Routine 05/21/2025 7:00 AM EDT ECG AND WAVEFORMS - TELEMETRY Routine 05/20/2025 7:38 PM EDT ECG AND WAVEFORMS - TELEMETRY Routine 05/20/2025 7:00 AM EDT CBC Early AM 05/20/2025 6:59 AM EDT MAGNESIUM LEVEL Early AM 05/20/2025 6:59 AM EDT BASIC METABOLIC PANEL Early AM 05/20/2025 6:59 AM EDT ECG AND WAVEFORMS - TELEMETRY Routine 05/19/2025 8:00 PM EDT ECG AND WAVEFORMS - TELEMETRY Routine 05/19/2025 8:07 AM EDT XR ABDOMEN AP PAULETTE 05/19/2025 8:00 AM EDT ECG AND WAVEFORMS - TELEMETRY Routine 05/18/2025 7:00 PM EDT ECG AND WAVEFORMS - TELEMETRY Routine 05/18/2025 7:04 AM EDT URINALYSIS REFLEX Routine 05/18/2025 6:43 AM EDT UA W/REFLEX TO CULTURE Routine 6:43 AM EDT EXTRA HUITRON URINE CX Routine 05/18/2025 6:43 AM EDT CBC Early AM 05/18/2025 6:28 AM EDT MAGNESIUM LEVEL Early AM 05/18/2025 6:28 AM EDT BASIC METABOLIC PANEL Early AM 05/18/2025 6:28 AM EDT ECG AND WAVEFORMS - TELEMETRY Routine 05/17/2025 7:08 PM EDT CBC Early AM 05/17/2025 1:29 PM EDT MAGNESIUM LEVEL Early AM 05/17/2025 1:29 PM EDT BASIC METABOLIC PANEL Early AM 05/17/2025 1:29 PM EDT ECG AND WAVEFORMS - TELEMETRY Routine 05/17/2025 7:31 AM EDT ECG AND WAVEFORMS - TELEMETRY Routine 05/16/2025 10:49 PM EDT ECG AND WAVEFORMS - TELEMETRY Routine 05/16/2025 7:26 AM EDT CBC Early AM 05/16/2025 3:24 AM EDT MAGNESIUM LEVEL Routine 05/16/2025 3:24 AM EDT BASIC METABOLIC PANEL Early AM 05/16/2025 3:24 AM EDT ECG AND WAVEFORMS - TELEMETRY Routine 05/15/2025 8:05 PM EDT CBC Routine 05/15/2025 10:41 AM EDT MAGNESIUM LEVEL Routine 05/15/2025 10:41 AM EDT BASIC METABOLIC PANEL Routine 05/15/2025 10:41 AM EDT ECG AND WAVEFORMS - TELEMETRY Routine 05/15/2025 7:03 AM EDT ECG AND WAVEFORMS - TELEMETRY Routine 05/14/2025 8:40 PM EDT ECG AND WAVEFORMS - TELEMETRY Routine 05/14/2025 7:46 AM EDT ECG AND WAVEFORMS - TELEMETRY Routine 05/13/2025 8:30 PM EDT ECG AND WAVEFORMS - TELEMETRY Routine 05/13/2025 6:32 PM EDT ECG AND WAVEFORMS - TELEMETRY Routine 05/13/2025 7:40 AM EDT ECG AND WAVEFORMS - TELEMETRY Routine 05/12/2025 7:00 PM EDT GLUCOSE METER POC Routine 05/12/2025 12:04 PM EDT GLUCOSE METER POC Routine 05/12/2025 10:40 AM EDT ECG AND WAVEFORMS - TELEMETRY Routine 05/12/2025 7:30 AM EDT ECG AND WAVEFORMS - TELEMETRY Routine 05/11/2025 7:00 PM EDT ECG AND WAVEFORMS - TELEMETRY Routine 05/11/2025 8:01 AM EDT ECG AND WAVEFORMS - TELEMETRY Routine 05/10/2025 7:12 PM EDT ECG AND WAVEFORMS - TELEMETRY Routine 05/10/2025 5:30 PM EDT IP CONSULT TO PALLIATIVE CARE Routine 05/10/2025 3:06 PM EDT Procedure Note - Leti Jefferson APRN - 05/13/2025 3:48 PM EDTThis note is in progress. Palliative Care Consult Note Consult Location: [facility] Length of Stay: 12 - chart review complete. Referring Provider: MD Maryann Assessment: Skyler Bautista is a 84 y.o. female with PVD who presented to the ED withdehiscence of left TMA. With initial surgery on 03/09/25, with revision on03/18/25. Patient has been presented with the treatment options of Lina ZAPIEN.Patient with multiple underlying co morbidities as well. [facility] consultedto assist with goals of care. Voluntary goals of care discussion with patient who was resting in bed,she is tearful as she shares questioning what she has done wrong for Godto punish her. With attempting to determine what act in her life has leadto her this point. She shares not being able to fathom the idea of lookingdown and not having her entire leg. She describers herself as havingcomplete treasure that her God will carry her though the decision she isfacing and needing more time to consider her treatment options. She isable to verbalize alternative treatment with focus on comfort with hospicesupport. Patient reports support form her 2 sons and sister, who supportwhatever her decision is and not having any outside influence regarding.Patient shares being helpful to explore this further with floor Hand Stemmer.Support provided along with [facility] role. Patient reports pain in her Lfoot, currently well controlled with current prn regimen. With plans for[facility] team to follow up with patient tomorrow. Decisional Capacity:Fully Decisional Based on determination of decisional capacity, health care surrogateagent:Inactive Advance Directive Document: No documents present in chart, educationprovided, documents pending Name (s): Sons: Edgar + 1 more Additional information: adult children, majority rules, /. Surrogate by: NOK per KRS Disposition: TBD, depending treatment preference. From home. Palliative Performance Scale: 30% Prognosis: TBD Palliative Plan of Care: Goals: Patient needing more time to consider treatment options. She isable to verbalize surgical interventions vs comfort focused care. Code: Full Code Symptom Needs: Per Primary Pain: Neurontin 300mg nightly + Acetaminophen prn + Roxicodone 10mg q4 hrsprn (4 doses/24hrs) + Morphine 2mg IV q4 hrs prn (1 dose/24hrs) Opioid Induced Constipation: Start senna at bedtime Last noted BM 05/13/25. Psychosocial distress: anticipatory grief, change in QoL and loss onindependence. Spiritual distress: Concern for punishment from God [facility] will continue to follow along. Chief Complaint: Chief Complaint Patient presents with Wound Dehiscence Pt presents per ems from [facility], toes amputated on left foot,here for wound check. History of Present Illness: Skyler Bautista is a 84 y.o. female with + PMHfor a-fib, CHF, DM, HNT, L frontotemporal hemorrhagic contusion, bilateralSAH & SDH in January 2024 at . Also with recent Left TMA, with revision on03/18/25. Patient admitted after dehiscence of left TMA. Patient has beenoffered treatment options. [facility] consulted to assist with goals of care.Of note, current admission is patient's 4th hospitalization within thepast 6 months. Review of Systems: ROS The listed systems were reviewed and reveal the following in addition toany already discussed in the HPI: Constitutional: No fever Eyes: No visual disturbance HENT: no headache,no hearing loss Lungs: no SOB, no nonprod cough Cardiovascular: No chest pain, PND, or orthopnea Endocrine: No polyuria, polydypsia, or polyphagia GI: No abdominal pain, nausea, vomiting, diarrhea : No dysuria, frequency, hesitancy, or hematuria Musculoskeletal: no weakness Neurologic: Alert & oriented Skin: No edema, jaundice Psychiatric: No depression, anxiety Hematologic/Allergic: No blood clots, bleeding or easy bruising Past Medical History: Past Medical History: Diagnosis Date A-fib (HCC) Arthritis Blood circulation, collateral CAD (coronary artery disease) Cardiac dysrhythmia Carotid artery occlusion CHF (congestive heart failure) (HCC) Diabetes mellitus (HCC) not currently on meds,rehab discontued Difficult intravenous access possible use of iv therapy/ultrasound to help with venous access. RIVERA (dyspnea on exertion) Encounter for blood transfusion Fatty liver Glaucoma Heartburn Hyperlipidemia Hypertension Liver disease Mixed hyperlipidemia Peripheral vascular disease Renal disorder Renal insufficiency Shortness of breath Sleep apnea pt has cpap, but is not using. Stroke (HCC) pt's states around 3 years ago. Urinary incontinence Urinary tract infection Active Hospital Problems: Active Hospital Problems Diagnosis *Diabetic foot infection (HCC) Wound dehiscence S/P transmetatarsal amputation of foot, left (HCC) Stage 3a chronic kidney disease (HCC) Anemia in other chronic diseases classified elsewhere PAD (peripheral artery disease) Chronic heart failure with preserved ejection fraction (HCC) Paroxysmal atrial fibrillation (HCC) 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 Type 2 diabetes mellitus, without long-term current use of insulin (HCC) Hypertension associated with diabetes (HCC) Social History: Social History Socioeconomic History Marital status: Spouse name: Not on file Number of children: Not on file Years of education: Not on file Highest education level: Not on file Occupational History Not on file Tobacco Use Smoking status: Former Current packs/day: 0.00 Types: Cigarettes Quit date: 1991 Years since quittin.5 Passive exposure: Past Smokeless tobacco: Never Vaping Use Vaping status: Never Used Substance and Sexual Activity Alcohol use: Not Currently Drug use: Never Sexual activity: Not Currently Partners: Male Other Topics Concern Not on file Social History Narrative Not on file Social Drivers of Health Financial Resource Strain: Low Risk (05/01/2025) Overall Financial Resource Strain (CARDIA) Difficulty of Paying Living Expenses: Not hard at all Food Insecurity: No Food Insecurity (05/01/2025) Hunger Vital Sign Worried About Running Out of Food in the Last Year: Never true Ran Out of Food in the Last Year: Never true Transportation Needs: No Transportation Needs (05/01/2025) [facility] IP Transportation In the past 12 months, has lack of reliable transportation kept you frommedical appointments, meetings, work or from getting things needed fordaily living?: No Physical Activity: Inactive (05/01/2025) Exercise Vital Sign Days of Exercise per Week: 0 days Minutes of Exercise per Session: 0 min Stress: No Stress Concern Present (05/01/2025) [employer] [place] [employer] - Occupational StressQuestionnaire Feeling of Stress : Not at all Social Connections: Low Risk (10/30/2023) Received from [employer] ([place], [place], [place], [place]) Family and Community Support Help with Day to Day Activities: Not on file Feeling Lonely or Isolated: Not on file Intimate Partner Violence: Not At Risk (08/06/2024) Received from [facility] Humiliation, Afraid, Rape, and Kick questionnaire Fear of Current or Ex-Partner: No Emotionally Abused: No Physically Abused: No Sexually Abused: No Housing Stability: Low Risk (08/06/2024) Received from [facility] Housing Stability Vital Sign Unable to Pay for Housing in the Last Year: No Number of Places Lived in the Last Year: 1 Unstable Housing in the Last Year: No Family History: No family history on file. Inpatient Medications: Current Facility-Administered Medications Medication Dose Route Frequency Last Rate Last Admin acetaminophen (TYLENOL) tablet 1,000 mg 1,000 mg Oral Preprocedure acetaminophen (TYLENOL) tablet 650 mg 650 mg Oral Q4H PRN 650 mg at05/06/252134 ALPRAZolam (XanAX) tablet 0.5 mg 0.5 mg Oral Nightly 0.5 mg at05/12/252254 atorvastatin (LIPITOR) tablet 40 mg 40 mg Oral Nightly 40 mg at05/12/252254 carvediloL (COREG) tablet 12.5 mg 12.5 mg Oral BID 12.5 mg at dextrose 50 % solution 25 mL 25 mL Intravenous PRN dorzolamide-timoloL (COSOPT) 22.3-6.8 mg/mL ophthalmic solution 1 Drop 1Drop Ophthalmic BID 1 Drop at 05/11/252010 gabapentin (NEURONTIN) capsule 300 mg 300 mg Oral Nightly 300 mg at05/12/252254 glucagon (GLUCAGEN) injection 1 mg 1 mg Intramuscular PRN And sterile water injection 1 mL 1 mL Injection PRN GLUCERNA Therapeutic oral supplement 1 'box' 1 'box' Oral BID with Meals1 'box' at 05/13/25 0904 CRISTINE powder oral supplement 1 Packet 1 Packet Oral BID 1 Packet at05/13/25 0905 latanoprost (XALATAN) 0.005 % ophthalmic solution 1 Drop 1 DropOphthalmic Nightly 1 Drop at 05/11/252010 morphine injection 2 mg 2 mg Intravenous Q4H PRN 2 mg at 05/13/25 0143 oxyCODONE (ROXICODONE) immediate release tablet 10 mg 10 mg Oral Q4H PRN10 mg at 05/13/25 1137 pantoprazole (PROTONIX) tablet 40 mg 40 mg Oral Daily 40 mg at05/13/25 0904 ranolazine (RANEXA) SR tablet 1,000 mg 1,000 mg Oral Daily 1,000 mg at05/13/25 0904 Objective: Vitals: Vitals: 05/13/25 1249 BP: Pulse: 94 Resp: Temp: SpO2: Physical Exam: Constitutional: Vital signs are noted,lying in bed , No apparent distress,alert, oriented, interactive HEENT: Normocephalic, without obvious abnormality Neck: Supple RESP: Respiratory effort regular and easy. CV: Rate is normal GI: abdomen is soft, nontender, and nondistended : Defer. Not examined. MSK: moves with generalized weakness SKIN: Warm and dry. L foot with necrotic suture line. NEURO: Non focal, speech is normal Psych: Normal mood and affect Medically Ready for discharge per Palliative Care Standpoint?: Yes Will follow-up in clinic?: No Medication recommendations?: per Primary Prescribing Care team at discharge?: per Primawry Will sign off?: No Thank you for the opportunity to participate in the care of this patient.We will follow along with you. Please contact the palliative care serviceteam with questions or concerns. Leti Jefferson APRN - Palliative Care Services Time-Based Billing Statement I spent 65 minutes in the care of this patient on this calendar day.Activities performed during this time include: Reviewing imaging, Performing the appropriate exam, Counseling andeducating, Ordering medications, Referring and communicating with anotherprofessional, Documenting clinical information in the EHR, and Carecoordination The total time documented above did not include the following activitieswhich were also performed on this calendar day: None GLUCOSE METER POC Routine 05/10/2025 2:18 PM EDT IR ULTRASOUND GUIDED VASCULAR ACCESS PAULETTE 05/10/2025 2:06 PM EDT IR ABDOMINAL AORTOGRAM SERIALOGRAM Routine 05/10/2025 2:06 PM EDT PAD (peripheral artery disease) Critical limb ischemia of left lower extremity (HCC) ECG AND WAVEFORMS - TELEMETRY Routine 05/10/2025 8:04 AM EDT ECG AND WAVEFORMS - TELEMETRY Routine 05/09/2025 7:03 PM EDT GLUCOSE METER POC Routine 05/09/2025 3:49 PM EDT ECG AND WAVEFORMS - TELEMETRY Routine 05/09/2025 12:37 PM EDT ECG AND WAVEFORMS - TELEMETRY Routine 05/09/2025 7:34 AM EDT ECG AND WAVEFORMS - TELEMETRY Routine 05/08/2025 7:01 PM EDT ECG AND WAVEFORMS - TELEMETRY Routine 05/08/2025 7:20 AM EDT CBC Early AM 05/08/2025 5:24 AM EDT BASIC METABOLIC PANEL Early AM 05/08/2025 5:24 AM EDT ECG AND WAVEFORMS - TELEMETRY Routine 05/07/2025 10:27 PM EDT IP CONSULT TO WOUND CARE Routine 05/07/2025 12:35 PM EDT CBC Early AM 05/07/2025 7:33 AM EDT BASIC METABOLIC PANEL Early AM 05/07/2025 7:33 AM EDT ECG AND WAVEFORMS - TELEMETRY Routine 05/07/2025 7:03 AM EDT ECG AND WAVEFORMS - TELEMETRY Routine 05/06/2025 9:57 PM EDT GLUCOSE METER POC Routine 05/06/2025 5:50 PM EDT POTASSIUM REPEAT Routine 05/06/2025 9:19 AM EDT ECG AND WAVEFORMS - TELEMETRY Routine 05/06/2025 7:00 AM EDT CBC Early AM 05/06/2025 5:59 AM EDT BASIC METABOLIC PANEL Early AM 05/06/2025 5:59 AM EDT ECG AND WAVEFORMS - TELEMETRY Routine 05/05/2025 10:41 PM EDT GLUCOSE METER POC Routine 05/05/2025 11:10 AM EDT GLUCOSE METER POC Routine 05/05/2025 8:16 AM EDT ECG AND WAVEFORMS - TELEMETRY Routine 05/05/2025 7:00 AM EDT GLUCOSE METER POC Routine 05/04/2025 9:12 PM EDT ECG AND WAVEFORMS - TELEMETRY Routine 05/04/2025 7:24 PM EDT ECG AND WAVEFORMS - TELEMETRY Routine 05/04/2025 7:01 PM EDT GLUCOSE METER POC Routine 05/04/2025 6:53 PM EDT GLUCOSE METER POC Routine 05/04/2025 5:57 PM EDT GLUCOSE METER POC Routine 05/04/2025 2:55 PM EDT ECG AND WAVEFORMS - TELEMETRY Routine 05/04/2025 7:00 AM EDT GLUCOSE METER POC Routine 05/03/2025 9:54 PM EDT ECG AND WAVEFORMS - TELEMETRY Routine 05/03/2025 6:59 PM EDT GLUCOSE METER POC Routine 05/03/2025 5:43 PM EDT MRI FOOT LEFT WO CONTRAST PAULETTE 05/03/2025 3:53 PM EDT GLUCOSE METER POC Routine 05/03/2025 2:14 PM EDT GLUCOSE METER POC Routine 05/03/2025 10:20 AM EDT ECG AND WAVEFORMS - TELEMETRY Routine 05/03/2025 7:55 AM EDT CBC Early AM 05/03/2025 6:37 AM EDT HEMOGLOBIN A1C Routine 05/03/2025 6:37 AM EDT BASIC METABOLIC PANEL Early AM 05/03/2025 6:37 AM EDT ECG AND WAVEFORMS - TELEMETRY Routine 05/02/2025 11:00 PM EDT GLUCOSE METER POC Routine 05/02/2025 9:27 PM EDT IP CONSULT TO VASCULAR SURGERY Routine 05/02/2025 5:53 PM EDT Procedure Note - Lawrence Wolf MD - 05/03/2025 9:50 AM EDTThis note is in progress. Images from the original note were not included. Name: Skyler Bautista ADDRESS: [address] [place] [id number] : 1940 AGE: 84 y.o. Hospital: [facility] Requesting Attending: Dr. Aguirre Primary Care Physician: No Pcp, Per Patient Date of Admission: 04/30/2025 Date of Consultation: 05/03/2025 Admitting Diagnosis: Diabetic foot infection (HCC) Chief Complaint / Reason for Consult: PAD HISTORY OF PRESENT ILLNESS History of Presenting Illness: Skyler Bautista is a(n) 84 y.o. poor historian with PMH significant foratrial fibrillation, arthritis, CHF, diabetes mellitus, HTN, Lfrontotemporal hemorrhagic contusion, bilateral SAH and SDH in Januaryt . She is known to our vascular service for PAD with ulcer statuspost LLE angiogram with QUALITY CONTROL ASSOCIATE of peroneal, tibioperoneal trunk andpopliteal arteries on 01/30/2025. The patient presented to the ER on 04/30 with dehiscence of left TMA.The surgery was initially performed on 03/09/2025 by Podiatry then requiredsubsequent revision of the TMA on 03/18/2025. BLE arterial duplex showstriphasic doppler flow pattern is noted in the right and left commonfemoral artery. There is a 20-49% stenosis right common femoral arteryand proximal profunda artery. There is a 50-99% stenosis right proximaland mid SFA and anterior tibial artery. The right proximal and distalposterior tibial artery is occluded. There is a 50-99% stenosis leftproximal/mid SFA and 20-49% stenosis left distal SFA. The left posteriortibial artery is occluded. The great toe PPG waveform is absent. Thereis a left TMA. The right anterior tibial artery is non-compressible.Right FERNIE is 0.50 and left FERNIE: 1.35. The right FERNIE is in the severeclaudication range and the left FERNIE is in the normal range, however ABIsmay be falsely elevated and unreliable secondary to calcified arterialwalls. Vascular surgery was consulted for further evaluation. Shereports having pain in the right foot and left TMA. Vascular Surgical History: 01/30/2025 - Left LE angiogram with QUALITY CONTROL ASSOCIATE of peroneal and tibioperoneal trunkwith 1.5 x 80 mm and 2 x 200 balloons. QUALITY CONTROL ASSOCIATE of the popliteal artery with3.5 x 120 mm and 4 x 80 mm balloons. (Lawrence Wolf MD) REVIEW OF SYSTEMS Review of Systems: The following systems were reviewed and revealed the following in additionto any already discussed in the HPI: Constitutional: No additional concerns noted Eyes: No additional concerns HENT: No additional concerns noted Respiratory: No additional concerns noted Cardiovascular: No additional concerns noted Gastrointestinal: No additional concerns noted Genitourinary: No additional concerns noted Musculoskeletal: No additional concerns noted Integumentary: No additional concerns noted Hematology / Lymphatics: No additional concerns Endocrine: No additional concerns noted Allergy / Immunology: No additional concerns noted Neuro / Psych: No additional concerns noted MEDICAL HISTORY Medications Medications Prior to Admission Medication Sig Dispense Refill Last Dose/Taking acetaminophen (TYLENOL) 500 mg Oral Tablet Take 1,000 mg by mouth every 8hours. 04/30/2025 ALPRAZolam (XANAX) 0.5 mg Oral Tablet Take 0.5 mg by mouth daily.Taking atorvastatin (LIPITOR) 40 mg Oral Tablet Take 40 mg by mouth nightly.Taking Calcium Carbonate (ANTACID ULTRA STRENGTH) 400 mg calcium (1,000 mg) OralTablet, Chewable Take 1,000 mg by mouth daily. Taking carvediloL (COREG) 12.5 mg Oral Tablet Take 1 Tablet by mouth 2 timesdaily. 04/30/2025 dorzolamide-timoloL (COSOPT) 22.3-6.8 mg/mL Opht Drops Apply 1 Drop toeye. Taking fUROsemide (LASIX) 40 mg Oral Tablet Take 40 mg by mouth daily. Taking gabapentin (NEURONTIN) 300 mg Oral Capsule Take 1 Capsule by mouthnightly. 30 Capsule 0 Taking latanoprost (XALATAN) 0.005 % Opht Drops Apply 1 Drop to eye nightly.Taking pantoprazole (PROTONIX) 40 mg Oral Tablet, Delayed Release (E.C.) Take 1Tablet by mouth daily. 90 Tablet 3 Taking polyethylene glycol (GLYCOLAX, MIRALAX) 17 gram Oral Powder in PacketTake 17 g by mouth daily. Taking ranolazine (RANEXA) 500 mg Oral Tablet Sustained Release 12 hr Take 1,000mg by mouth daily. Taking Cholecalciferol, Vitamin D3, 50 mcg (2,000 unit) Oral Capsule Take bymouth daily. (Patient not taking: Reported on 04/30/2025) Not Taking cyanocobalamin 1,000 mcg Oral Tablet Take 1,000 mcg by mouth daily.Unknown lidocaine (LIDODERM) 5 % Top Adhesive Patch, Medicated Apply 1 Patchtopically. (Patient not taking: Reported on 04/30/2025) Not Taking nalOXone (NARCAN) 4 mg/actuation Nasl [place], Non-Aerosol 0.1 mL by Nasalroute as needed for Opioid Reversal. [place] the contents of one device(0.1mL) into one nostril upon signs of opioid overdose. Call 911. Mayrepeat dose in other nostril if no response within 2-3 minutes. 1 Each 0 nalOXone (NARCAN) 4 mg/actuation Nasl [place], Non-Aerosol 0.1 mL by Nasalroute as needed for Opioid Reversal. [place] the contents of one device(0.1mL) into one nostril upon signs of opioid overdose. Call 911. Mayrepeat dose in other nostril if no response within 2-3 minutes. 1 Each 0Unknown Current Facility-Administered Medications Medication Dose Route Frequency Provider Last Rate Last Admin acetaminophen (TYLENOL) tablet 650 mg 650 mg Oral Q4H PRN Rajendra Petty MD (Ronny) 650 mg at 05/01/25 0151 atorvastatin (LIPITOR) tablet 40 mg 40 mg Oral Nightly Alyson Guillermo NP 40 mg at 05/02/252153 carvediloL (COREG) tablet 12.5 mg 12.5 mg Oral BID Alyson Guillermo NP12.5 mg at 05/02/252153 dextrose 50 % solution 25 mL 25 mL Intravenous PRN Aleksandra Petty MD (Ronny) dorzolamide-timoloL (COSOPT) 22.3-6.8 mg/mL ophthalmic solution 1 Drop 1Drop Ophthalmic BID Alyson Guillermo NP 1 Drop at 05/01/252235 gabapentin (NEURONTIN) capsule 300 mg 300 mg Oral Nightly Jose Guillermo NP 300 mg at 05/02/252153 glucagon (GLUCAGEN) injection 1 mg 1 mg Intramuscular PRN Rajendra Petty MD (Ronny) And sterile water injection 1 mL 1 mL Injection PRN Rajendra Petty MD (Ronny) GLUCERNA Therapeutic oral supplement 1 'box' 1 'box' Oral BID with Marcell Yap MD 1 'box' at 05/01/25 1800 insulin aspart U-100 (NovoLOG) injection 1-10 Units 1-10 UnitsSubcutaneous QID Rajendra Petty MD (Ronny) CRISTINE powder oral supplement 1 Packet 1 Packet Oral BID Marcell Aguirre MD latanoprost (XALATAN) 0.005 % ophthalmic solution 1 Drop 1 DropOphthalmic Nightly Alyson Guillermo NP 1 Drop at 05/01/25 223 LORazepam (ATIVAN) tablet 0.5 mg 0.5 mg Oral Nightly Marcell Aguirre MD0.5 mg at 05/02/25 2154 metFORMIN (GLUCOPHAGE) tablet 500 mg 500 mg Oral BID WM Marcell Aguirre MD 500 mg at 05/02/25 1735 morphine injection 2 mg 2 mg Intravenous Q4H PRN Rajendra Petty MD (Ronny) 2 mg at 05/03/25 0046 Or morphine injection 3-4 mg 3-4 mg Intravenous Q4H PRN Aleksandra Petty MD (Ronny) 4 mg at 05/01/25 1544 oxyCODONE (ROXICODONE) immediate release tablet 10 mg 10 mg Oral Q4H PRNAMarcell nielson MD 10 mg at 05/03/25 0253 pantoprazole (PROTONIX) tablet 40 mg 40 mg Oral Daily Aleksandra Petty MD (Ronny) 40 mg at 05/02/25 1212 ranolazine (RANEXA) SR tablet 1,000 mg 1,000 mg Oral Daily Rajendra Petty MD (Ronny) 1,000 mg at 05/02/25 1212 Allergies Allergen Reactions Lidocaine Rash Past Medical History: Diagnosis Date A-fib (HCC) Arthritis Blood circulation, collateral CAD (coronary artery disease) Cardiac dysrhythmia Carotid artery occlusion CHF (congestive heart failure) (HCC) Diabetes mellitus (HCC) not currently on meds,rehab discontued Difficult intravenous access possible use of iv therapy/ultrasound to help with venous access. RIVERA (dyspnea on exertion) Encounter for blood transfusion Fatty liver Glaucoma Heartburn Hyperlipidemia Hypertension Liver disease Mixed hyperlipidemia Peripheral vascular disease Renal disorder Renal insufficiency Shortness of breath Sleep apnea pt has cpap, but is not using. Stroke (HCC) pt's states around 3 years ago. Urinary incontinence Urinary tract infection Past Surgical History: Procedure Laterality Date ABDOMEN SURGERY CARDIAC CATHETERIZATION CARDIAC SURGERY CABG/stents FOOT SURGERY Left 03/09/2025 Transmetatarsal amputation of the left foot; Surgeon: Tony Mills DPM; Location: [facility]; Service: Podiatry FOOT SURGERY Left 03/17/2025 left transmetatarsal amputation revision; Surgeon: Irineo Perez DPM; Location: [facility]; Service: Podiatry HYSTERECTOMY IR ANGIOGRAM EXTREMITY LEFT 01/30/2025 IR ANGIOGRAM EXTREMITY LEFT 01/30/2025 Lawrence Wolf MD [facility] IR ANGIOGRAM FEMORAL ARTERIO SHIFT 01/17/2025 IR ANGIOGRAM FEMORAL ARTERIO SHIFT 01/17/2025 Lawrence Wolf MD [facility] IR REVAS FEM POP ART UNILAT W QUALITY CONTROL ASSOCIATE 01/30/2025 IR REVAS FEM POP ART UNILAT W QUALITY CONTROL ASSOCIATE 01/30/2025 Lawrence Wolf MD [facility] IR ULTRASOUND GUIDED VASCULAR ACCESS 01/17/2025 IR ULTRASOUND GUIDED VASCULAR ACCESS 01/17/2025 Lawrence Wolf MD [facility] IR ULTRASOUND GUIDED VASCULAR ACCESS 01/30/2025 IR ULTRASOUND GUIDED VASCULAR ACCESS 01/30/2025 Lawrence Wolf MD [facility] JOINT REPLACEMENT TOE SURGERY Left 01/31/2025 Left foot hallux amputation; Surgeon: Dacia Mills DPM;Location: [facility]; Service: Podiatry No family history on file. Social History: Social History Tobacco Use Smoking Status Former Current packs/day: 0.00 Types: Cigarettes Quit date: 1991 Years since quittin.5 Passive exposure: Past Smokeless Tobacco Never PHYSICAL EXAMINATION Physical Examination Patient Vitals for the past 24 hrs: BP Temp Temp src Pulse Resp SpO2 05/03/25 0501 -- -- -- 89 -- -- 05/03/25 0317 -- -- -- 91 -- -- 05/03/25 0107 -- -- -- 83 -- -- 05/03/25 0003 108/64 98.4 F (36.9 C) Oral 88 16 100 % 05/02/25 2153 133/73 -- -- 90 -- -- 05/02/25 1656 111/86 98.6 F (37 C) Oral 88 18 100 % 05/02/25 1209 115/54 98 F (36.7 C) Oral 73 18 100 % 05/02/25 1151 129/59 97.7 F (36.5 C) Oral 91 16 100 % General: Patient appears comfortable in no apparent distress. Skin: left TMA Head: NC/AT Eyes: Anicteric sclerae. ENT: Face is symmetrical. Neck: No tracheal deviation Lungs: Effort normal Cardiac: RRR Abdomen: Abdomen is soft, non-tender. Vascular Pulse Exam: R radial +2 L radial +2 R femoral +1 L femoral +1 R popliteal L popliteal R posterior tibial 0 L posterior tibial 0 R dorsalis pedis 0 L dorsalis pedis 0 Back: No kyphosis noted : not examined Lymphadenopathy: not examined Musculoskeletal: moves all extremities Extremities: No lower extremity edema Neurological: alert and oriented. LABS AND RADIOLOGY Laboratory: CBC: Lab Results Component Value Date WBC 3.5 (L) 05/03/2025 RBC 2.19 (L) 05/03/2025 HGB 8.0 (L) 05/03/2025 HCT 25.0 (L) 05/03/2025 MCV 114.2 (H) 05/03/2025 MCHC 32.0 05/03/2025 RDW 17.7 (H) 05/03/2025 PLT 68 (L) 05/03/2025 MPV 12.3 05/03/2025 BMP: Lab Results Component Value Date NA 137 05/03/2025 K 4.5 05/03/2025 CL 105 05/03/2025 CO2 22 05/03/2025 BUN 23 05/03/2025 CREATININE 0.89 05/03/2025 CALCIUM 8.5 (L) 05/03/2025 GLU 109 (H) 05/03/2025 Radiology: VA US LOWER EXTREMITY ARTERIAL DUPLEX COMPLETE Result Date: 05/03/2025 Conclusions * Triphasic Doppler flow pattern is noted in the right andleft common femoral artery. * 20-49% stenosis right common femoralartery. * 20-49% stenosis proximal profunda artery. * 50-99% stenosisright proximal and mid SFA. * 50-99% stenosis right proximal anteriortibial artery. * Occlusion right proximal and distal posterior tibialartery. * 50-99% stenosis left proximal/mid SFA. * 20-49% stenosisleft distal SFA. * Occlusion left posterior tibial artery. * The greattoe PPG waveform is absent. * There is a left TMA. * The rightanterior tibial artery is non-compressible. * RABI: 0.50. * LABI:1.35. * The right FERNIE is in the severe claudication range and the leftABI is in the normal range, however ABIs may be falsely elevated andunreliable secondary to calcified arterial andino. MEDICAL DECISION MAKING Assessment: PAD with failing left TMA. Hx L frontotemporal hemorrhagic contusion, bilateral SAH and SDH Hx frequent falls Paroxysmal atrial fibrillation Chronic CHF CAD Diabetes mellitus Hypertension CKD Recommendations: No immediate plans for vascular intervention today. Ok to resume previous diet if cleared by other specialist. The patient would likely benefit from undergoing a repeat LE angiogramwith possible intervention. The procedure will need to be performed inthe OR under general anesthesia. Timing to be determined on ORavailability. Further per Dr. Wolf. Thank you for including us in the care of your patient. I will follow Randy with you during this hospitalization. Time spent reviewing chart, discussing plan/answering questions of family,and at the bedside examining patient: 45 minutes Signed: Teo De La Torre PA-C 05/03/2025 9:50 AM Physician Documentation: I have reviewed the chief complaint, history of present illness, review ofsystems as well as the past medical/social/family history sections forthis patient. I have examined this patient, and participated in the careof this patient. I have reviewed the pertinent clinical informationincluding physical exam, labs, radiographic studies and the impression andplan, and I agree with the assessment and plan as documented. Thispatient was seen in coordination with the physician physician assistant surgery/nursepractitioner. Patient with LLE angiogram with QUALITY CONTROL ASSOCIATE of popliteal, TPT and peroneal artery15 s/p L TMA who presents with necrosis and dehiscence of TMA incision Arterial duplex personally reviewed. Discussed situation at length with patient and her sister, who we calledon the phone. Patient is at very high risk for requiring a proximalamputation. I discussed amputation vs attempting another angiogram withGA. Patient states she will never agree to a proximal amputation. It isreasonable to perform an angiogram to confirm the perfusion but unlessthere is something to intervene upon that significantly improves theperfusion, I recommend against attempting further podiatric surgery on herfoot as it would not be expected to heal. The first angiogram had to beaborted due to patient's inability to lay still so I will need to waituntil anesthesia is available to perform the angiogram. All questions wereanswered. Discussed plan with podiatry. Lawrence Wolf MD GLUCOSE METER POC Routine 05/02/2025 5:04 PM EDT GLUCOSE METER POC Routine 05/02/2025 1:03 PM EDT IP CONSULT TO PASTORAL CARE Routine 05/02/2025 12:50 PM EDT [facility] LOWER EXTREMITY ARTERIAL DUPLEX COMPLETE PAULETTE 05/02/2025 11:07 AM EDT CBC Early AM 05/02/2025 8:31 AM EDT BASIC METABOLIC PANEL Early AM 05/02/2025 8:30 AM EDT ECG AND WAVEFORMS - TELEMETRY Routine 05/02/2025 8:06 AM EDT GLUCOSE METER POC Routine 05/01/2025 9:05 PM EDT ECG AND WAVEFORMS - TELEMETRY Routine 05/01/2025 7:56 PM EDT GLUCOSE METER POC Routine 05/01/2025 4:53 PM EDT ADMIT Routine 05/01/2025 4:03 PM EDT IP CONSULT TO NUTRITION Routine 05/01/20 25 3:48 PM EDT GLUCOSE METER POC Routine 05/01/2025 11:21 AM EDT GLUCOSE METER POC Routine 05/01/2025 9:10 AM EDT CBC Early AM 05/01/2025 7:57 AM EDT ECG AND WAVEFORMS - TELEMETRY Routine 05/01/2025 7:00 AM EDT BASIC METABOLIC PANEL Early AM 05/01/2025 6:21 AM EDT ECG AND WAVEFORMS - TELEMETRY Routine 05/01/2025 5:12 AM EDT IP CONSULT TO WOUND CARE Routine 05/01/2025 1:01 AM EDT ECG AND WAVEFORMS - TELEMETRY Routine 04/30/2025 11:29 PM EDT GLUCOSE METER POC Routine 04/30/2025 10:09 PM EDT ADMIT Routine 04/30/2025 8:07 PM EDT REPEAT LACTIC ACID STAT 04/30/2025 7:30 PM EDT IP CONSULT TO PODIATRY Routine 6:35 PM EDT Procedure Note - Jovanni Montesinos APRN - 05/01/2025 5:34 PM EDTThis note is in progress. Images from the original note were not included. Name: Skyler Bautista Inpatient consult to Podiatry Consult performed by: Jovanni Montesinos APRN Consult ordered by: Donnie Kaur MD Assessment/Plan Left TMA stump complication Left TMA wound dehiscence Peripheral arterial disease Diabetic neuropathy Status post transmetatarsal amputation of left foot - No immediate podiatric surgical intervention, patient may eat if clearedby other services - will order a noninvasive vascular ultrasound to evaluate blood flow - X-ray left foot - no radiographic evidence of recurrent osteomyelitis - Betadine to wound and leave open to air - Foot does not appear infected at this time - Patient needs wound revision, timing per Dr. Onofre - Discussed with patient that if foot is infected that she would require aBKA, patient verbalized understanding and stated Dr. Perez had discussedthis with her previously - Patient does not want a BKA at this time Discussed with Dr Onofre CC: Skyler Bautista is a 84 y.o. female, well-known to our service, with PMHsignificant for A-fib, CAD, PAD, CHF, hyperlipidemia, hypertension, renalinsufficiency, sleep apnea and CVA presents to the hospital with wounddehiscence and concern for wound infection. Patient had a lefttransmetatarsal amputation with a revision TMA on 03/17/[address] 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 Her foot is not currently infected, minimal redness andswelling with sutures intact. Patient offered that Dr. Park told herif her foot became infected she would need a BKA. She does not want aBKA. Denies fever, chills, vomiting and nausea. This note was completed using voice recognition technology. Despite thewriter's best efforts to proof read, it may still contain unintendederrors. Please call with questions. PCP:No Pcp, Per Patient Past Medical History: Diagnosis Date A-fib (HCC) Arthritis Blood circulation, collateral CAD (coronary artery disease) Cardiac dysrhythmia Carotid artery occlusion CHF (congestive heart failure) (HCC) Diabetes mellitus (HCC) not currently on meds,rehab discontued Difficult intravenous access possible use of iv therapy/ultrasound to help with venous access. RIVERA (dyspnea on exertion) Encounter for blood transfusion Fatty liver Glaucoma Heartburn Hyperlipidemia Hypertension Liver disease Mixed hyperlipidemia Peripheral vascular disease Renal disorder Renal insufficiency Shortness of breath Sleep apnea pt has cpap, but is not using. Stroke (HCC) pt's states around 3 years ago. Urinary incontinence Urinary tract infection Past Surgical History: Procedure Laterality Date ABDOMEN SURGERY CARDIAC CATHETERIZATION CARDIAC SURGERY CABG/stents FOOT SURGERY Left 03/09/2025 Transmetatarsal amputation of the left foot; Surgeon: Tony Mills DPM; Location: [facility]; Service: Podiatry FOOT SURGERY Left 03/17/2025 left transmetatarsal amputation revision; Surgeon: Irineo Perez DPM; Location: [facility]; Service: Podiatry HYSTERECTOMY IR ANGIOGRAM EXTREMITY LEFT 01/30/2025 IR ANGIOGRAM EXTREMITY LEFT 01/30/2025 Lawrence Wolf MD [facility] IR ANGIOGRAM FEMORAL ARTERIO SHIFT 01/17/2025 IR ANGIOGRAM FEMORAL ARTERIO SHIFT 01/17/2025 Lawrence Wolf MD [place] IR REVAS FEM POP ART UNILAT W QUALITY CONTROL ASSOCIATE 01/30/2025 IR REVAS FEM POP ART UNILAT W QUALITY CONTROL ASSOCIATE 01/30/2025 Lawrence Wolf MD [facility] IR ULTRASOUND GUIDED VASCULAR ACCESS 01/17/2025 IR ULTRASOUND GUIDED VASCULAR ACCESS 01/17/2025 Lawrence Wolf MD FLOIR IR ULTRASOUND GUIDED VASCULAR ACCESS 01/30/2025 IR ULTRASOUND GUIDED VASCULAR ACCESS 01/30/2025 Lawrence Wolf MD [facility] JOINT REPLACEMENT TOE SURGERY Left 01/31/2025 Left foot hallux amputation; Surgeon: Dacia Mills DPM;Location: [facility] MAIN OR; Service: Podiatry No family history on file. Social History Socioeconomic History Marital status: Spouse name: None Number of children: None Years of education: None Highest education level: None Tobacco Use Smoking status: Former Current packs/day: 0.00 Types: Cigarettes Quit date: 1991 Years since quittin.5 Passive exposure: Past Smokeless tobacco: Never Vaping Use Vaping status: Never Used Substance and Sexual Activity Alcohol use: Not Currently Drug use: Never Sexual activity: Not Currently Partners: Male Social Drivers of Health Financial Resource Strain: Low Risk (05/01/2025) Overall Financial Resource Strain (CARDIA) Difficulty of Paying Living Expenses: Not hard at all Food Insecurity: No Food Insecurity (05/01/2025) Hunger Vital Sign Worried About Running Out of Food in the Last Year: Never true Ran Out of Food in the Last Year: Never true Transportation Needs: No Transportation Needs (05/01/2025) [facility] IP Transportation In the past 12 months, has lack of reliable transportation kept you frommedical appointments, meetings, work or from getting things needed fordaily living?: No Physical Activity: Inactive (05/01/2025) Exercise Vital Sign Days of Exercise per Week: 0 days Minutes of Exercise per Session: 0 min Stress: No Stress Concern Present (05/01/2025) [employer] [place] [employer] - Occupational StressQuestionnaire Feeling of Stress : Not at all Received from [employer] ([place], [place], [place], [place]) Family and Community Support Intimate Partner Violence: Not At Risk (08/06/2024) Received from [facility] Humiliation, Afraid, Rape, and Kick questionnaire Fear of Current or Ex-Partner: No Emotionally Abused: No Physically Abused: No Sexually Abused: No Housing Stability: Low Risk (08/06/2024) Received from [facility] Housing Stability Vital Sign Unable to Pay for Housing in the Last Year: No Number of Places Lived in the Last Year: 1 Unstable Housing in the Last Year: No ROS General: appears in no acute distress Skin: warm, dry and intact Head: normocephalic, without obvious abnormality, atraumatic Lungs: breathing unlabored Neurologic: sensation grossly normal, LE exam separate Extremities/Muscoskeletal: see focused exam Vitals: 05/01/25 1320 05/01/25 1409 05/01/25 1506 05/01/25 1716 BP: 108/55 BP Location: Left arm Patient Position: Lying right side Pulse: 99 93 89 84 Resp: Temp: TempSrc: SpO2: Weight: Height: Physical Exam General: Skyler appears in no acute distress Skin: warm, dry, and intact Cardio: RRR via radial pulse Head: Normocephalic, without obvious abnormality, atraumatic Neurological: sensation diminished Lungs: Unlabored Extremities/Musculoskeletal: FOCUSED LOWER EXTREMITY EXAM: Vascular: Pedal pulses diminished for dorsalis pedis and posterior tibialarteries bilaterally. Capillary refill time < 3 secs. No vascular lesionsof varicosities bilaterally. Msk: Muscle strength 4/5 for lower extremity extrinsic musculaturebilaterally. Range of motion is within normal limits for the ankle joint,midtarsal joint, and metatarsal phalangeal joints. Neuro: Sensation diminished to light touch. Deep tendon reflexes intactbilaterally. Dermatological: Left TMA wound dehiscence with necrotic wound bed, noexpressible purulence, no malodor, no calor, minimal drainage, sutures inplace. Patient verbally consented permission allowing today's photographs - [email or web address]. Lab and radiographic data reviewed. Thank you for asking me to participate in your patient's care. Jovanni Montesinos, COIN COLLECTOR 05/01/2025 BLOOD GAS, VENOUS STAT 04/30/2025 5:56 PM EDT BLOOD CULTURE (NO STAIN) STAT 04/30/2025 5:56 PM EDT BLOOD CULTURE (NO STAIN) STAT 04/30/2025 5:56 PM EDT XR FOOT LEFT AP LATERAL AND OBLIQUE PAULETTE 04/30/2025 5:45 PM EDT XR CHEST AP PORTABLE PAULETTE 04/30/2025 5:32 PM EDT PROCALCITONIN STAT 04/30/2025 5:15 PM EDT SEDIMENTATION RATE AUTOMATED STAT 04/30/2025 5:15 PM EDT CBC WITH DIFF STAT 04/30/2025 5:15 PM EDT C-REACTIVE PROTEIN STAT 04/30/2025 5:15 PM EDT LACTIC ACID STAT 04/30/2025 5:15 PM EDT COMPREHENSIVE METABOLIC PANEL STAT 04/30/2025 5:15 PM EDT SALINE LOCK IV STAT 04/30/2025 5:06 PM EDT IP CONSULT TO PHARMACY STAT 5:04 PM EDT SALINE LOCK IV STAT 04/30/2025 5:03 PM EDT EK EKG 12 LEAD STAT 04/30/2025 4:18 PM EDT documented in this encounter Results * SCANNED RHYTHM STRIPS (06/11/2025 1:28 PM EDT) Anatomical Region Laterality Modality Other 06/11/2025 1:28 PM EDT us Unknown Provider IMG ECG ORDERABLES Final Result * MAGNESIUM LEVEL (06/10/2025 10:32 AM EDT) Magnesium 1.6 1.6 - 2.4 mg/dL 06/10/2025 11:11 AM EDT [facility] Blood VENOUS BLOOD / Unknown Venipuncture / Unknown 06/10/2025 10:32 AM EDT 06/10/2025 10:37 AM EDT us Trino Montiel MD CHEMISTRY ORDERABLES Final Re sult [facility] [address] [facility] , [place] [address] * (ABNORMAL) COMPREHENSIVE METABOLIC PANEL (06/10/2025 10:32 AM EDT) Sodium 137 136 - 145 mmol/L 06/10/2025 11:11 AM EDT [facility] Potassium 3.9 3.5 - 5.0 mmol/L 06/10/2025 11:11 AM EDT [facility] Chloride 104 98 - 107 mmol/L 06/10/2025 11:11 AM EDT [facility] Total CO2 22 22 - 29 mmol/L 06/10/2025 11:11 AM EDT [facility] Anion Gap 11 7 - 16 mmol/L 06/10/2025 11:11 AM EDT [facility] Calcium 8.8 8.8 - 10.4 mg/dL 06/10/2025 11:11 AM EDT [facility] Glucose Lvl 177(H) 70 - 99 mg/dL 06/10/2025 11:11 AM EDT [facility] BUN 23 8 - 23 mg/dL 06/10/2025 11:11 AM EDT [facility] Creatinine 1.14 0.51 - 1.30 mg/dL 06/10/2025 11:11 AM EDT [facility] Albumin 3.4 3.2 - 4.6 gm/dL 06/10/2025 11:11 AM EDT [facility] Total Protein 6.5 6.4 - 8.3 gm/dL 06/10/2025 11:11 AM EDT [facility] Bili Total 0.6 0.2 - 1.3 mg/dL 06/10/2025 11:11 AM EDT [facility] ALT 18 <=41 U/L 06/10/2025 11:11 AM EDT [facility] AST 26 <=40 U/L 06/10/2025 11:11 AM EDT [facility] Alk Phos 159(H) 36 - 123 U/L 06/10/2025 11:11 AM EDT [facility] eGFR (CKD-EPIcr 2020) 47(L) >=60 mL/min/1.7 3 m2 06/10/2025 11:11 AM EDT [facility] Comment:Estimated GFR was ca lculated using the CKD-EPIcr (2020) equation refit without race. The equation is recommended by the National Kidney Foundation - [place] [employer] Nephrology Task Force. Blood VENOUS BLOOD / Unknown Venipuncture / Unknown 06/10/2025 10:32 AM EDT 06/10/2025 10:37 AM EDT us Trino Montiel MD CHEMISTRY ORDERABLES Final Re sult [facility] [address] [facility] , [place] [address] * (ABNORMAL) CBC (06/10/2025 10:32 AM EDT) WBC 3.4(L) 3.7 - 10.3 x10(3)/mcL 06/10/2025 10:47 AM EDT [facility] RBC 2.36(L) 3.90 - 5.20 x10(6)/mcL 06/10/2025 10:47 AM EDT [facility] Hgb 8.4(L) 11.2 - 15.7 g/dL 06/10/2025 10:47 AM EDT [facility] Hct 26.5(L) 34.0 - 45.0 % 06/10/2025 10:47 AM EDT [facility] MCV 112.3(H) 80.0 - 100.0 fL 06/10/2025 10:47 AM EDT [facility] MCH 35.6(H) 26.0 - 34.0 pg 06/10/2025 10:47 AM EDT [facility] MCHC 31.7 30.7 - 35.5 g/dL 06/10/2025 10:47 AM EDT [facility] RDW 19.8(H) <=14.9 % 06/10/2025 10:47 AM EDT [facility] Platelet 106(L) 155 - 369 x10(3)/mcL 06/10/2025 10:47 AM EDT [facility] MPV 12.6(H) 8.8 - 12.5 fL 06/10/2025 10:47 AM EDT [facility] VENOUS BLOOD / Unknown Venipuncture / Unknown 06/10/2025 10:32 AM EDT 06/10/2025 10:37 AM EDT Trino Montiel MD HEMATOLOGY ORDERABLES Final R esult Performing Organization Address City/[facility]/ZIP Co de Phone Number [facility] [address] [facility], [place] [address] * ECG AND WAVEFORMS - TELEMETRY (06/10/2025 7:00 AM EDT) ECG INTERPRET Atrial Fib [facility] Comment:2 PVCs 06/10/2025 7:00 AM EDT Narrative [facility] - 06/10/2025 9:23 AM EDT ROUTINE SDP QRS 0.08 QT 0.41 See Clinical Report link for waveform capture us Unknown Provider POINT OF CARE CARDIOLOGY Final Result Performing Organization Address City/[facility] Co de Phone Number [facility] [address] [place] [address] * XR CHEST AP PORTABLE (06/09/2025 9:10 PM EDT) Anatomical Region Laterality Modality Chest Radiographic Barbie ging 06/09/2025 9:10 PM EDT Impressions 06/09/2025 9:15 PM EDT Continued improvement of pulmonary edema with small bilateral pleural effusions. - Note: Radiology results need to be interpreted within a comprehensive clinical context. If you have questions about the radiology report, please contact the office of the ordering clinician. Narrative 06/09/2025 9:15 PM EDT XR CHEST AP PORTABLE, 06/09/2025 9:10 PM CLINICAL HISTORY: -dyspnea COMPARISON: 06/04/2025 PROCEDURE COMMENTS: AP portable technique. FINDINGS: Support devices: No visible support devices. Status post median sternotomy and CABG with prior coronary arterial stenting. Cardiovascular structures are within normal limits. Trachea is midline. Small bilateral pleural effusions with continued improvement of pulmonary edema. No other acute findings. No pneumothorax. Procedure Note Donnie Mata MD - 06/09/2025 XR CHEST AP PORTABLE, 06/09/2025 9:10 PM CLINICAL HISTORY: -dyspnea COMPARISON: 06/04/2025 PROCEDURE COMMENTS: AP portable technique. FINDINGS: Support devices: No visible support devices. Status post median sternotomy and CABG with prior coronary arterialstenting. Cardiovascular structures are within normal limits. Trachea is midline.Small bilateral pleural effusions with continued improvement of pulmonary edema.No other acute findings. No pneumothorax. IMPRESSION: Continued improvement of pulmonary edema with small bilateral pleuraleffusions. - Note: Radiology results need to be interpreted within a comprehensiveclinical context. If you have questions about the radiology report, please contactthe office of the ordering clinician. Alyson Guillermo NP IMG DIAGNOSTIC IMAGING ORDERA BLES Final Result * (ABNORMAL) URINE CULTURE (NO STAIN) (06/09/2025 11:46 AM EDT) Culture Positive Growth(A) 06/11/2025 10:16 AM EDT [facility] [employer] Culture >100,000 CFU/mL Klebsiella species SUSCEPTIBI LITY RESULT 06/11/2025 10:16 AM EDT [facility] [employer] [facility] Culture >100,000 CFU/mL Escherichia coli SUSCEPTIBI LITY RESULT 06/11/2025 10:16 AM EDT [facility] [employer], [facility] Culture 50,000 CFU/mL Proteus mirabilis SUSCEPTIBI LITY RESULT 06/11/2025 10:16 AM EDT [facility] [employer] [facility] Comment:No further workup. Urine STRUCTURE OF URINARY TRACT PROPER / Unknown 06/09/2025 11:46 AM EDT 06/09/2025 12:13 PM EDT Narrative Organism Antibiotic Method Susceptibility Klebsiella species Amikacin SUSCEPTIBILITY RESULT Klebsiella species Amoxicillin/Clavulan at e SUSCEPTIBILITY RESULT <=8/4 ug/mL: Susceptible Klebsiella species Ampicillin SUSCEPTIBILITY RESULT Klebsiella species Ampicillin/Sulbactam SUSCEPTIBILITY RESULT <=4/2 ug/mL: Susceptible Klebsiella species Aztreonam SUSCEPTIBILITY RESULT <=4 ug/mL: Susceptible Klebsiella species Cefazolin SUSCEPTIBILITY RESULT <=2 ug/mL: Susceptible Klebsiella species Cefepime SUSCEPTIBILITY RESULT Klebsiella species Cefotaxime SUSCEPTIBILITY RESULT Klebsiella species Cefoxitin SUSCEPTIBILITY RESULT <=8 ug/mL: Susceptible Klebsiella species Ceftazidime SUSCEPTIBILITY RESULT Klebsiella species Ceftazidime/Avibactam SUSCEPTIBILIT Y RESULT Klebsiella species Ceftolozane/Tazobactam SUSCEPTIBILI TY RESULT Klebsiella species Ceftriaxone SUSCEPTIBILITY RESULT Klebsiella species Cefuroxime SUSCEPTIBILITY RESULT Klebsiella species Ciprofloxacin SUSCEPTIBILITY RESULT <=0.25 ug/mL: Susceptible Klebsiella species Ertapenem SUSCEPTIBILITY RESULT <=0.5 ug/mL: Susceptible Klebsiella species Gentamicin SUSCEPTIBILITY RESULT <=2 ug/mL: Susceptible Klebsiella species Imipenem SUSCEPTIBILITY RESULT <=1 ug/mL: Susceptible Klebsiella species Levofloxacin SUSCEPTIBILITY RESULT <=0.5 ug/mL: Susceptible Klebsiella species Meropenem SUSCEPTIBILITY RESULT <=1 ug/mL: Susceptible Klebsiella species Meropenem/Vaborbactam SUSCEPTIBILIT Y RESULT Klebsiella species Minocycline SUSCEPTIBILITY RESULT Klebsiella species Moxifloxacin SUSCEPTIBILITY RESULT Klebsiella species Nitrofurantoin SUSCEPTIBILITY RESUL T <=32 ug/mL: Susceptible Klebsiella species Piperacillin/Tazobac ta m SUSCEPTIBILITY RESULT <=8 ug/mL: Susceptible Klebsiella species Tetracycline SUSCEPTIBILITY RESULT <=4 ug/mL: Susceptible Klebsiella species Tigecycline SUSCEPTIBILITY RESULT Klebsiella species Tobramycin SUSCEPTIBILITY RESULT <=2 ug/mL: Susceptible Klebsiella species Trimethoprim/Sulfame th oxazole SUSCEPTIBILITY RESULT <=0.5/9.5 ug/mL: Susceptible Escherichia coli Amikacin SUSCEPTIBILITY RESULT Escherichia coli Amoxicillin/Clavulan at e SUSCEPTIBILITY RESULT <=8/4 ug/mL: Susceptible Escherichia coli Ampicillin SUSCEPTIBILITY RESULT >16 ug/mL: Resistant Escherichia coli Ampicillin/Sulbactam SUSCEPTIBILITY R ESULT 16/8 ug/mL: Intermediate Escherichia coli Aztreonam SUSCEPTIBILITY RESULT <=4 ug/mL: Susceptible Escherichia coli Cefazolin SUSCEPTIBILITY RESULT <=2 ug/mL: Susceptible Escherichia coli Cefepime SUSCEPTIBILITY RESULT Escherichia coli Cefotaxime SUSCEPTIBILITY RESULT Escherichia coli Cefoxitin SUSCEPTIBILITY RESULT <=8 ug/mL: Susceptible Escherichia coli Ceftazidime SUSCEPTIBILITY RESULT Escherichia coli Ceftazidime/Avibactam SUSCEPTIBILITY RESULT Escherichia coli Ceftolozane/Tazobactam SUSCEPTIBILITY RESULT Escherichia coli Ceftriaxone SUSCEPTIBILITY RESULT Escherichia coli Cefuroxime SUSCEPTIBILITY RESULT Escherichia coli Ciprofloxacin SUSCEPTIBILITY RESULT <=0.25 ug/mL: Susceptible Escherichia coli Ertapenem SUSCEPTIBILITY RESULT <=0.5 ug/mL: Susceptible Escherichia coli Gentamicin SUSCEPTIBILITY RESULT <=2 ug/mL: Susceptible Escherichia coli Imipenem SUSCEPTIBILITY RESULT <=1 ug/mL: Susceptible Escherichia coli Levofloxacin SUSCEPTIBILITY RESULT <=0.5 ug/mL: Susceptible Escherichia coli Meropenem SUSCEPTIBILITY RESULT <=1 ug/mL: Susceptible Escherichia coli Meropenem/Vaborbactam SUSCEPTIBILITY RESULT Escherichia coli Minocycline SUSCEPTIBILITY RESULT Escherichia coli Moxifloxacin SUSCEPTIBILITY RESULT Escherichia coli Nitrofurantoin SUSCEPTIBILITY RESULT <=32 ug/mL: Susceptible Escherichia coli Piperacillin/Tazobac ta m SUSCEPTIBILITY RESULT <=8 ug/mL: Susceptible Escherichia coli Tetracycline SUSCEPTIBILITY RESULT >8 ug/mL: Resistant Escherichia coli Tigecycline SUSCEPTIBILITY RESULT Escherichia coli Tobramycin SUSCEPTIBILITY RESULT <=2 ug/mL: Susceptible Escherichia coli Trimethoprim/Sulfame th oxazole SUSCEPTIBILITY RESULT >2/38 ug/mL: Resistant Brenda Arriaga APRN MICROBIOLOGY - GENER AL ORDERABLES Final Result Performing Organization Address [facility]/ZIP Co de Phone Number [facility], [address], [place] [address] * EXTRA HUITRON URINE CX (06/09/2025 11:46 AM EDT) Urine STRUCTURE OF URINARY TRACT PROPER / Unknown 06/09/2025 11:46 AM EDT 06/09/2025 11:49 AM EDT Brenda Arriaga APRN MICROBIOLOGY - GENER AL ORDERABLES Final Result Performing Organization Address [facility] [place] [address] * (ABNORMAL) URINALYSIS REFLEX (06/09/2025 11:46 AM EDT) UA Color Yellow 06/09/2025 12:13 PM EDT [facility] UA Appear Cloudy(A) Clear 06/09/2025 12:13 PM EDT [facility] UA Glucose Negative Negative mg/dL 06/09/2025 12:13 PM EDT [facility] UA Ketones Negative Negative mg/dL 06/09/2025 12:13 PM EDT [facility] [employer], [facility] UA Blood 1+ (0.06 - 0.1 mg/dL)(A) Negative 06/09/2025 12:13 PM EDT [facility] UA pH 6.5 5.0 - 8.0 pH 06/09/2025 12:13 PM EDT [facility] UA Protein 2+ (100-200 mg/dL)(A) Negative mg/dL 06/09/2025 12:13 PM EDT [facility] UA Urobilinogen Normal <=1 mg/dL 12:13 PM EDT [facility] UA Bili Negative Negative 06/09/2025 12:13 PM EDT [facility] UA Nitrite Negative Negative 06/09/2025 12:13 PM EDT [facility] UA Leuk Est 4+ (500 Ion/mcl)(A) Negative 06/09/2025 12:13 PM EDT [facility] UA Spec Grav 1.011 1.001 - 1.035 no units 06/09/2025 12:13 PM EDT [facility] Comment:Reference range helga d for random specimens only. UA WBC 71(H) 0 - 4 /HPF 06/09/2025 12:13 PM EDT [facility] UA RBC 29(H) 0 - 3 /HPF 06/09/2025 12:13 PM EDT [facility] UA Squam Epi 3+ /LPF 06/09/2025 12:13 PM EDT [facility] UA Mucus Trace /LPF 06/09/2025 12:13 PM EDT [facility] UA Bacteria 3+(A) Negative /HPF 06/09/2025 12:13 PM EDT [facility] UA Hyal Cast 1 0 - 2 /LPF 06/09/2025 12:13 PM EDT [facility] Urine STRUCTURE OF URINARY TRACT PROPER / Unknown 06/09/2025 11:46 AM EDT 06/09/2025 11:49 AM EDT Brenda Arriaga COIN COLLECTOR URINE ORDERABLES Zane al Result [facility] [address] [facility] , [place] [address] * ECG AND WAVEFORMS - TELEMETRY (06/09/2025 7:00 AM EDT) ECG INTERPRET Atrial Fib [facility] 06/09/2025 7:00 AM EDT Narrative [facility] - 06/09/2025 8:53 AM EDT RT ROUTINE QRS 0.11 See Clinical Report link for waveform capture us Unknown Provider POINT OF CARE CARDIOLOGY Final Result Performing Organization Address City/[facility] Co de Phone Number [facility] [address] [place] [id number] * ECG AND WAVEFORMS - TELEMETRY (06/08/2025 8:23 PM EDT) ECG INTERPRET Atrial Fib [facility] 06/08/2025 8:23 PM EDT Narrative [facility] - 06/08/2025 8:25 PM EDT PVC'S-ROUTINE /KD QRS 0.09 See Clinical Report link for waveform capture us Unknown Provider POINT OF CARE CARDIOLOGY Final Result Performing Organization Address [facility] Co de Phone Number [facility] [address] [place] [address] * ECG AND WAVEFORMS - TELEMETRY (06/08/2025 8:24 AM EDT) ECG INTERPRET Atrial Fib [facility] 06/08/2025 8:24 AM EDT Narrative [facility] - 06/08/2025 9:15 AM EDT RT ROUTINE QRS 0.08 See Clinical Report link for waveform capture us Unknown Provider POINT OF CARE CARDIOLOGY Final Result Performing Organization Address [facility] Co de Phone Number [facility] 1 [place] [address] * ECG AND WAVEFORMS - TELEMETRY (06/07/2025 9:25 PM EDT) ECG INTERPRET Atrial Fib [facility] 06/07/2025 9:25 PM EDT Narrative [facility] - 06/07/2025 9:34 PM EDT PVC S -ROUTINE (AM) QRS 0.11 See Clinical Report link for waveform capture us Unknown Provider POINT OF CARE CARDIOLOGY Final Result Performing Organization Address [facility] de Phone Number [facility] [address] [place] [address] * ECG AND WAVEFORMS - TELEMETRY (06/07/2025 9:25 PM EDT) ECG INTERPRET Atrial Fib [facility] 06/07/2025 9:25 PM EDT Narrative [facility] - 06/07/2025 9:34 PM EDT ROUTINE (AM) QRS 0.11 See Clinical Report link for waveform capture us Unknown Provider POINT OF CARE CARDIOLOGY Final Result Performing Organization Address [facility] de Phone Number [facility] [address] [place] [address] * ECG AND WAVEFORMS - TELEMETRY (06/07/2025 8:07 AM EDT) ECG INTERPRET Atrial Fib [facility] 06/07/2025 8:07 AM EDT Narrative [facility] - 06/07/2025 8:09 AM EDT EH - ROUTINE; PVCs QRS 0.10 See Clinical Report link for waveform capture us Unknown Provider POINT OF CARE CARDIOLOGY Final Result Performing Organization Address [facility] de Phone Number [facility] [address] [place] [address] * (ABNORMAL) BASIC METABOLIC PANEL (06/07/2025 7:09 AM EDT) Sodium 137 136 - 145 mmol/L 06/07/2025 8:30 AM EDT [facility] Potassium 3.8 3.5 - 5.0 mmol/L 06/07/2025 8:30 AM EDT [facility] Chloride 103 98 - 107 mmol/L 06/07/2025 8:30 AM EDT [facility] Total CO2 23 22 - 29 mmol/L 06/07/2025 8:30 AM EDT [facility], [facility] Anion Gap 11 7 - 16 mmol/L 06/07/2025 8:30 AM EDT [facility] Calcium 8.7(L) 8.8 - 10.4 mg/dL 06/07/2025 8:30 AM EDT [facility] Glucose Lvl 114(H) 70 - 99 mg/dL 06/07/2025 8:30 AM EDT [facility], [facility] BUN 19 8 - 23 mg/dL 06/07/2025 8:30 AM EDT [facility], [facility] Creatinine 1.07 0.51 - 1.30 mg/dL 06/07/2025 8:30 AM EDT [facility] eGFR (CKD-EPIcr 2020) 51(L) >=60 mL/min/1.7 3 m2 06/07/2025 8:30 AM EDT [facility] Comment:Estimated GFR was ca lculated using the CKD-EPIcr (2020) equation refit without race. The equation is recommended by the [employer] Kid[employer] - [place] [employer]ph[employer] Task Force. Blood VENOUS BLOOD / Unknown Venipuncture / Unknown 06/07/2025 7:09 AM EDT 06/07/2025 7:57 AM EDT us Trino Montiel MD CHEMISTRY ORDERABLES Final Re sult Performing Organization Address City/[facility]/ZIP Co de Phone Number [facility] [address] [facility] , [place] [address] * ECG AND WAVEFORMS - TELEMETRY (06/06/2025 7:05 PM EDT) ECG INTERPRET Atrial Fib [facility] 06/06/2025 7:05 PM EDT Narrative [facility] - 06/06/2025 8:28 PM EDT ROUTINE/PVC/PAC/af GA 0.20 QRS 0.11 RR 0.80 QT 0.49 QTc 0.55 See Clinical Report link for waveform capture us Unknown Provider POINT OF CARE CARDIOLOGY Final Result Performing Organization Address City/State/[facility] Co de Phone Number [facility] [address] [place] [address] * ECG AND WAVEFORMS - TELEMETRY (06/06/2025 7:05 PM EDT) ECG INTERPRET Atrial Fib [facility] 06/06/2025 7:05 PM EDT Narrative [facility] - 06/06/2025 8:27 PM EDT ROUTINE/PVC/PAC/af GA 0.20 QRS 0.11 RR 0.80 QT 0.49 QTc 0.55 See Clinical Report link for waveform capture us Unknown Provider POINT OF CARE CARDIOLOGY Edited Result - Final Performing Organization Address [facility] de Phone Number [facility] 1 [place] [address] * ECG AND WAVEFORMS - TELEMETRY (06/06/2025 7:34 AM EDT) ECG INTERPRET Atrial Fib [facility] 06/06/2025 7:34 AM EDT Narrative [facility] - 06/06/2025 7:46 AM EDT ROUTINE W/ PVC (LZ) QRS 0.10 See Clinical Report link for waveform capture us Unknown Provider POINT OF CARE CARDIOLOGY Final Result Performing Organization Address [facility] de Phone Number [facility] [address] [place] [address] * ECG AND WAVEFORMS - TELEMETRY (06/05/2025 7:05 PM EDT) ECG INTERPRET Sinus Rhythm w/ First Degree AVB [facility] 06/05/2025 7:05 PM EDT Narrative [facility] - 06/05/2025 8:21 PM EDT ROUTINE/1stAVB/IVCD/af GA 0.22 QRS 0.12 RR 0.66 QT 0.40 QTc 0.49 See Clinical Report link for waveform capture us Unknown Provider POINT OF CARE CARDIOLOGY Final Result Performing Organization Address [facility] Co de Phone Number [facility] 1 [place] [address] * MAGNESIUM LEVEL (06/05/2025 7:27 AM EDT) Magnesium 1.6 1.6 - 2.4 mg/dL 06/05/2025 8:27 AM EDT [facility] Blood VENOUS BLOOD / Unknown Venipuncture / Unknown 06/05/2025 7:27 AM EDT 06/05/2025 7:36 AM EDT us Trino Montiel MD CHEMISTRY ORDERABLES Final Re sult [facility], [facility] [address] [facility], [place] [address] * (ABNORMAL) COMPREHENSIVE METABOLIC PANEL (06/05/2025 7:27 AM EDT) Sodium 135(L) 136 - 145 mmol/L 06/05/2025 8:27 AM EDT [facility] Potassium 4.2 3.5 - 5.0 mmol/L 06/05/2025 8:27 AM EDT [facility] Chloride 103 98 - 107 mmol/L 06/05/2025 8:27 AM EDT [facility] Total CO2 23 22 - 29 mmol/L 06/05/2025 8:27 AM EDT [facility] Anion Gap 9 7 - 16 mmol/L 06/05/2025 8:27 AM EDT [facility] Calcium 8.8 8.8 - 10.4 mg/dL 06/05/2025 8:27 AM EDT [facility] Glucose Lvl 111(H) 70 - 99 mg/dL 06/05/2025 8:27 AM EDT [facility] BUN 16 8 - 23 mg/dL 06/05/2025 8:27 AM EDT [facility] Creatinine 1.01 0.51 - 1.30 mg/dL 06/05/2025 8:27 AM EDT [facility] Albumin 3.2 3.2 - 4.6 gm/dL 06/05/2025 8:27 AM EDT [facility] Total Protein 6.3(L) 6.4 - 8.3 gm/dL 06/05/2025 8:27 AM EDT [facility] Bili Total 0.6 0.2 - 1.3 mg/dL 06/05/2025 8:27 AM EDT [facility] ALT 16 <=41 U/L 06/05/2025 8:27 AM EDT [facility] AST 29 <=40 U/L 06/05/2025 8:27 AM EDT [facility] Alk Phos 140(H) 36 - 123 U/L 06/05/2025 8:27 AM EDT [facility], [facility] eGFR (CKD-EPIcr 2020) 54(L) >=60 mL/min/1.7 3 m2 06/05/2025 8:27 AM EDT [facility] Comment:Estimated GFR was ca lculated using the CKD-EPIcr (2020) equation refit without race. The equation is recommended by the [employer] - [place] [employer] Neph[employer] Task Force. Blood VENOUS BLOOD / Unknown Venipuncture / Unknown 06/05/2025 7:27 AM EDT 06/05/2025 7:36 AM EDT us Trino Montiel MD CHEMISTRY ORDERABLES Final Re sult [facility], [facility] [address] [facility] , [place] [address] * (ABNORMAL) CBC (06/05/2025 7:27 AM EDT) WBC 4.8 3.7 - 10.3 x10(3)/mcL 06/05/2025 7:55 AM EDT [facility] RBC 2.44(L) 3.90 - 5.20 x10(6)/mcL 06/05/2025 7:55 AM EDT [facility] Hgb 8.4(L) 11.2 - 15.7 g/dL 06/05/2025 7:55 AM EDT [facility] Hct 26.9(L) 34.0 - 45.0 % 06/05/2025 7:55 AM EDT [facility] MCV 110.2(H) 80.0 - 100.0 fL 06/05/2025 7:55 AM EDT [facility] MCH 34.4(H) 26.0 - 34.0 pg 06/05/2025 7:55 AM EDT [facility] MCHC 31.2 30.7 - 35.5 g/dL 06/05/2025 7:55 AM EDT [facility] RDW 19.1(H) <=14.9 % 06/05/2025 7:55 AM EDT [facility] Platelet 106(L) 155 - 369 x10(3)/mcL 06/05/2025 7:55 AM EDT [facility] MPV 12.4 8.8 - 12.5 fL 06/05/2025 7:55 AM EDT [facility] Blood VENOUS BLOOD / Unknown Venipuncture / Unknown 06/05/2025 7:27 AM EDT 06/05/2025 7:36 AM EDT us Trino Montiel MD HEMATOLOGY ORDERABLES Final R esult [facility], [address], [place] [address] * ECG AND WAVEFORMS - TELEMETRY (06/05/2025 7:09 AM EDT) [facility] Signature ECG INTERPRET Atrial Fib [facility] 06/05/2025 7:09 AM EDT Narrative [facility] - 06/05/2025 8:00 AM EDT ROUTINE W/ PVC (LZ) QRS 0.11 See Clinical Report link for waveform capture us Unknown Provider POINT OF CARE CARDIOLOGY Final Result Performing Organization Address City/[facility]/ZIP Co de Phone Number [facility] 1 [place] [address] * ECG AND WAVEFORMS - TELEMETRY (06/04/2025 7:10 PM EDT) ECG INTERPRET Atrial Fib [facility] 06/04/2025 7:10 PM EDT Narrative [facility] - 06/04/2025 8:04 PM EDT ROUTINE/PVCs/af QRS 0.07 See Clinical Report link for waveform capture us Unknown Provider POINT OF CARE CARDIOLOGY Final Result [facility] 1 [place] [address] * XR CHEST PA AND LATERAL (06/04/2025 5:07 PM EDT) Anatomical Region Laterality Modality Chest Radio Fluoroscop y 06/04/2025 5:07 PM EDT Impressions 06/04/2025 5:12 PM EDT Improving edema. - Note: Radiology results need to be interpreted within a comprehensive clinical context. If you have questions about the radiology report, please contact the office of the ordering clinician. Narrative 06/04/2025 5:12 PM EDT PA AND LATERAL CHEST X-RAY, 06/04/2025 5:07 PM CLINICAL HISTORY: -CHF follow up COMPARISON: 06/01/2020 PROCEDURE COMMENTS: Frontal and lateral views of the chest. FINDINGS: Improving basilar airspace opacities and effusions compatible with improving edema. No pneumothorax. Procedure Note Mirza Renee MD - 06/04/2025 PA AND LATERAL CHEST X-RAY, 06/04/2025 5:07 PM CLINICAL HISTORY: -CHF follow up COMPARISON: 06/01/2020 PROCEDURE COMMENTS: Frontal and lateral views of the chest. FINDINGS: Improving basilar airspace opacities and effusions compatible withimproving edema. No pneumothorax. IMPRESSION: Improving edema. - Note: Radiology results need to be interpreted within a comprehensiveclinical context. If you have questions about the radiology report, please contactthe office of the ordering clinician. us Trino Montiel MD IMG DIAGNOSTIC IMAGING ORDERA BLES Final Result * (ABNORMAL) CBC (06/04/2025 7:52 AM EDT) WBC 4.1 3.7 - 10.3 x10(3)/mcL 06/04/2025 8:12 AM EDT [facility] RBC 2.30(L) 3.90 - 5.20 x10(6)/mcL 06/04/2025 8:12 AM EDT [facility] Hgb 7.9(L) 11.2 - 15.7 g/dL 06/04/2025 8:12 AM EDT [facility] Hct 24.8(L) 34.0 - 45.0 % 06/04/2025 8:12 AM EDT [facility] MCV 107.8(H) 80.0 - 100.0 fL 06/04/2025 8:12 AM EDT [facility] MCH 34.3(H) 26.0 - 34.0 pg 06/04/2025 8:12 AM EDT [facility] MCHC 31.9 30.7 - 35.5 g/dL 06/04/2025 8:12 AM EDT [facility] RDW 19.0(H) <=14.9 % 06/04/2025 8:12 AM EDT [facility] Platelet 121(L) 155 - 369 x10(3)/[facility] 06/04/2025 8:12 AM EDT [facility] MPV 12.4 8.8 - 12.5 fL 06/04/2025 8:12 AM EDT [facility] [employer] Blood VENOUS BLOOD / Unknown Venipuncture / Unknown 06/04/2025 7:52 AM EDT 06/04/2025 7:57 AM EDT us Stephen Pickard MD HEMATOLOGY ORDERABLES Final Result [facility] [address] [facility] , [place] [address] * (ABNORMAL) RENAL FUNCTION PANEL (06/04/2025 7:52 AM EDT) Sodium 136 136 - 145 mmol/L 06/04/2025 8:30 AM EDT [facility] Potassium 4.0 3.5 - 5.0 mmol/L 06/04/2025 8:30 AM EDT [facility] Chloride 103 98 - 107 mmol/L 06/04/2025 8:30 AM EDT [facility] Total CO2 23 22 - 29 mmol/L 06/04/2025 8:30 AM EDT [facility] Anion Gap 10 7 - 16 mmol/L 06/04/2025 8:30 AM EDT [facility] Calcium 8.8 8.8 - 10.4 mg/dL 06/04/2025 8:30 AM EDT [facility] Glucose Lvl 135(H) 70 - 99 mg/dL 06/04/2025 8:30 AM EDT [facility] BUN 14 8 - 23 mg/dL 06/04/2025 8:30 AM EDT [facility], [facility] Creatinine 0.92 0.51 - 1.30 mg/dL 06/04/2025 8:30 AM EDT [facility], [facility] Albumin 3.1(L) 3.2 - 4.6 gm/dL 06/04/2025 8:30 AM EDT [facility], [facility] Phosphorus 3.7 2.5 - 4.5 mg/dL 06/04/2025 8:30 AM EDT [facility] eGFR (CKD-EPIcr 2020) 61 >=60 mL/min/1.7 3 m2 06/04/2025 8:30 AM EDT [facility], [facility] Comment:Estimated GFR was ca lculated using the CKD-EPIcr (2020) equation refit without race. The equation is recommended by the [employer] Kid[employer] - [place] [employer] Neph[employer] Task Force. Blood VENOUS BLOOD / Unknown Venipuncture / Unknown 06/04/2025 7:52 AM EDT 06/04/2025 7:57 AM EDT us Stephen Pickard MD CHEMISTRY ORDERABLES Final R esult [facility] [address] [facility] , [address] [place] [id number] * ECG AND WAVEFORMS - TELEMETRY (06/04/2025 7:29 AM EDT) ECG INTERPRET Atrial Fib [facility] 06/04/2025 7:29 AM EDT Narrative [facility] - 06/04/2025 8:19 AM EDT ROUTINE W/ PVC (LZ) QRS 0.11 See Clinical Report link for waveform capture us Unknown Provider POINT OF CARE CARDIOLOGY Final Result Performing Organization Address [facility] de Phone Number [facility] [address] [place] [address] * ECG AND WAVEFORMS - TELEMETRY (06/03/2025 8:07 PM EDT) [facility] ECG INTERPRET Atrial Fib [facility] 06/03/2025 8:07 PM EDT Narrative [facility] - 06/03/2025 8:11 PM EDT w/ PVC ROUTINE / RG See Clinical Report link for waveform capture us Unknown Provider POINT OF CARE CARDIOLOGY Final Result Performing Organization Address [facility] de Phone Number [facility] [address] [place] [address] * ECG AND WAVEFORMS - TELEMETRY (06/03/2025 7:00 AM EDT) [facility] ECG INTERPRET Atrial Fib [facility] 06/03/2025 7:00 AM EDT Narrative [facility] - 06/03/2025 8:44 AM EDT RS, ROUTINE, PVCS QRS 0.08 See Clinical Report link for waveform capture us Unknown Provider POINT OF CARE CARDIOLOGY Final Result Performing Organization Address [facility] de Phone Number [facility] [address] [place] [address] * (ABNORMAL) RENAL FUNCTION PANEL (06/03/2025 5:56 AM EDT) Pathologist [facility] Sodium 134(L) 136 - 145 mmol/L 06/03/2025 6:51 AM EDT [facility] Potassium 3.7 3.5 - 5.0 mmol/L 06/03/2025 6:51 AM EDT [facility] Chloride 103 98 - 107 mmol/L 06/03/2025 6:51 AM EDT [facility] Total CO2 22 22 - 29 mmol/L 06/03/2025 6:51 AM EDT [facility] Anion Gap 9 7 - 16 mmol/L 06/03/2025 6:51 AM EDT [facility] Calcium 8.4(L) 8.8 - 10.4 mg/dL 06/03/2025 6:51 AM EDT [facility] Glucose Lvl 117(H) 70 - 99 mg/dL 06/03/2025 6:51 AM EDT [facility] BUN 9 8 - 23 mg/dL 06/03/2025 6:51 AM EDT [facility] Creatinine 0.80 0.51 - 1.30 mg/dL 06/03/2025 6:51 AM EDT [facility], [facility] Albumin 3.0(L) 3.2 - 4.6 gm/dL 06/03/2025 6:51 AM EDT [facility], [facility] Phosphorus 3.0 2.5 - 4.5 mg/dL 06/03/2025 6:51 AM EDT [facility] eGFR (CKD-EPIcr 2020) 72 >=60 mL/min/1.7 3 m2 06/03/2025 6:51 AM EDT [facility], [facility] Comment:Estimated GFR was ca lculated using the CKD-EPIcr (2020) equation refit without race. The equation is recommended by the [employer] - [place] [employer]ph[employer] Task Force. Blood VENOUS BLOOD / Unknown Venipuncture / Unknown 06/03/2025 5:56 AM EDT 06/03/2025 6:18 AM EDT us Stephen Pickard MD CHEMISTRY ORDERABLES Final R esult [facility] [address] [facility] , [address] [place] [id number] * (ABNORMAL) CBC (06/03/2025 5:56 AM EDT) WBC 3.5(L) 3.7 - 10.3 x10(3)/mcL 06/03/2025 6:32 AM EDT [facility] RBC 2.23(L) 3.90 - 5.20 x10(6)/mcL 06/03/2025 6:32 AM EDT [facility] Hgb 7.8(L) 11.2 - 15.7 g/dL 06/03/2025 6:32 AM EDT [facility] Hct 24.5(L) 34.0 - 45.0 % 06/03/2025 6:32 AM EDT [facility] MCV 109.9(H) 80.0 - 100.0 fL 06/03/2025 6:32 AM EDT [facility] MCH 35.0(H) 26.0 - 34.0 pg 06/03/2025 6:32 AM EDT [facility] MCHC 31.8 30.7 - 35.5 g/dL 06/03/2025 6:32 AM EDT [facility] RDW 19.0(H) <=14.9 % 06/03/2025 6:32 AM EDT [facility] Platelet 109(L) 155 - 369 x10(3)/mcL 06/03/2025 6:32 AM EDT [facility] MPV 12.5 8.8 - 12.5 fL 06/03/2025 6:32 AM EDT [facility] Blood VENOUS BLOOD / Unknown Venipuncture / Unknown 06/03/2025 5:56 AM EDT 06/03/2025 6:19 AM EDT us Stephen Pickard MD HEMATOLOGY ORDERABLES Final Result [facility] [address] [facility] , [place] [address] * ECG AND WAVEFORMS - TELEMETRY (06/02/2025 7:00 PM EDT) Pathologist [facility] ECG INTERPRET Atrial Fib [facility] 06/02/2025 7:00 PM EDT Narrative [facility] - 06/02/2025 7:37 PM EDT ROUTINE W/ PVCS(CW) QRS 0.06 See Clinical Report link for waveform capture us Unknown Provider POINT OF CARE CARDIOLOGY Final Result Performing Organization Address [facility] Co de Phone Number [facility] [address] [place] [address] * (ABNORMAL) GLUCOSE METER POC (06/02/2025 8:54 AM EDT) Glucose Meter POC 102(H) 70 - 100 mg/dL 06/02/2025 8:56 AM EDT [facility] Sample Type Capillary 06/02/2025 8:56 AM EDT [facility] Patient Status Non-Critical Patient 06/02/2025 8:56 AM EDT [facility] Blood BLOOD SPECIMEN / Unknown 06/02/2025 8:54 AM EDT 06/02/2025 8:56 AM EDT us Stephen Pickard MD POINT OF CARE TEST ORDERABLE S Final Result Performing Organization Address [facility] Co de Phone Number [facility] [address] [place] [address] * ECG AND WAVEFORMS - TELEMETRY (06/02/2025 7:03 AM EDT) ECG INTERPRET Atrial Fib [facility] Comment:PVCs 06/02/2025 7:03 AM EDT Narrative [facility] - 06/02/2025 8:44 AM EDT PVC's - ROUTINE - KB QRS 0.08 See Clinical Report link for waveform capture us Unknown Provider POINT OF CARE CARDIOLOGY Final Result Performing Organization Address [facility]/ZIP Co de Phone Number [facility] [address] [place] [address] * (ABNORMAL) GLUCOSE METER POC (06/01/2025 9:55 PM EDT) Glucose Meter POC 175(H) 70 - 100 mg/dL 06/01/2025 9:57 PM EDT [facility] Sample Type Capillary 06/01/2025 9:57 PM EDT [facility] Patient Status Non-Critical Patient 06/01/2025 9:57 PM EDT [facility] Blood BLOOD SPECIMEN / Unknown 06/01/2025 9:55 PM EDT 06/01/2025 9:57 PM EDT us Stephen Pickard MD POINT OF CARE TEST ORDERABLE S Final Result Performing Organization Address City/[facility]/ZIP Co de Phone Number [facility] [address] [place] [address] * ECG AND WAVEFORMS - TELEMETRY (06/01/2025 7:00 PM EDT) ECG INTERPRET Atrial Fib [facility] 06/01/2025 7:00 PM EDT Narrative [facility] - 06/01/2025 7:30 PM EDT ROUTINE W/ PVCS(CW) QRS 0.06 See Clinical Report link for waveform capture us Unknown Provider POINT OF CARE CARDIOLOGY Final Result Performing Organization Address [facility] Co de Phone Number [facility] [address] [place] [address] * XR CHEST AP PORTABLE (06/01/2025 4:14 PM EDT) Anatomical Region Laterality Modality Chest Radiographic Barbie ging 06/01/2025 4:14 PM EDT Impressions 06/01/2025 4:24 PM EDT CHF. - Note: Radiology results need to be interpreted within a comprehensive clinical context. If you have questions about the radiology report, please contact the office of the ordering clinician. Narrative 06/01/2025 4:24 PM EDT XR CHEST AP PORTABLE, 06/01/2025 4:14 PM CLINICAL HISTORY: -sob COMPARISON: 05/29/2025 PROCEDURE COMMENTS: AP portable technique. FINDINGS: Support devices: No visible support devices. Cardiomegaly, bilateral pulmonary edema and pleural effusions likely representing CHF. Stable cardiac mediastinal postsurgical sequelae. Procedure Note Reuben Lovell MD - 06/01/2025 XR CHEST AP PORTABLE, 06/01/2025 4:14 PM CLINICAL HISTORY: -sob COMPARISON: 05/29/2025 PROCEDURE COMMENTS: AP portable technique. FINDINGS: Support devices: No visible support devices. Cardiomegaly, bilateral pulmonary edema and pleural effusions likely representing CHF. Stable cardiac mediastinal postsurgical sequelae. IMPRESSION: CHF. - Note: Radiology results need to be interpreted within a comprehensiveclinical context. If you have questions about the radiology report, please contactthe office of the ordering clinician. Stephen Pickard MD IMG DIAGNOSTIC IMAGING ORDER CELESTE Final Result * (ABNORMAL) GLUCOSE METER POC (06/01/2025 2:54 PM EDT) Glucose Meter POC 114(H) 70 - 100 mg/dL 06/01/2025 2:55 PM EDT [facility] Sample Type Capillary 06/01/2025 2:55 PM EDT [facility] Patient Status Non-Critical Patient 06/01/2025 2:55 PM EDT [facility] Blood BLOOD SPECIMEN / Unknown 06/01/2025 2:54 PM EDT 06/01/2025 2:55 PM EDT Stephen Pickard MD POINT OF CARE TEST ORDERABLE S Final Result Performing Organization Address City/[facility]/ZIP Co de Phone Number [facility] [address] [place] [address] * ECG AND WAVEFORMS - TELEMETRY (06/01/2025 1:04 PM EDT) ECG INTERPRET Error [facility] 06/01/2025 1:04 PM EDT Narrative [facility] - 06/01/2025 1:05 PM EDT See Clinical Report link for waveform capture us Unknown Provider POINT OF CARE CARDIOLOGY Final Result Performing Organization Address City/[facility]/ZIP Co de Phone Number [facility] [address] [place] [address] * ECG AND WAVEFORMS - TELEMETRY (06/01/2025 12:35 PM EDT) ECG INTERPRET Atrial Fib [facility] Comment:PVCs 06/01/2025 12:3 5 PM EDT Narrative [facility] - 06/01/2025 12:41 PM EDT FREQ. PVC's RHYTHM CHANGE - KB See Clinical Report link for waveform capture us Unknown Provider POINT OF CARE CARDIOLOGY Final Result Performing Organization Address City/[facility]/ZIP Co de Phone Number [facility] [address] [place] [address] * (ABNORMAL) GLUCOSE METER POC (06/01/2025 9:41 AM EDT) Glucose Meter POC 109(H) 70 - 100 mg/dL 06/01/2025 9:57 AM EDT [facility] Sample Type Capillary 06/01/2025 9:57 AM EDT [facility] Patient Status Non-Critical Patient 06/01/2025 9:57 AM EDT [facility] Blood BLOOD SPECIMEN / Unknown 06/01/2025 9:41 AM EDT 06/01/2025 9:57 AM EDT us Stephen Pickard MD POINT OF CARE TEST ORDERABLE S Final Result Performing Organization Address [facility] Co de Phone Number [facility] [address] [place] [address] * ECG AND WAVEFORMS - TELEMETRY (06/01/2025 7:00 AM EDT) ECG INTERPRET Atrial Fib [facility] Comment:with PVCs 06/01/2025 7:00 AM EDT Narrative [facility] - 06/01/2025 8:17 AM EDT ROUTINE - KB QRS 0.05 See Clinical Report link for waveform capture us Unknown Provider POINT OF CARE CARDIOLOGY Final Result Performing Organization Address City/[facility]/ZIP Co de Phone Number [facility] [address] [place] [address] * (ABNORMAL) GLUCOSE METER POC (05/31/2025 9:21 PM EDT) Glucose Meter POC 172(H) 70 - 100 mg/dL 05/31/2025 9:24 PM EDT [facility] Sample Type Capillary 05/31/2025 9:24 PM EDT [facility] Patient Status Non-Critical Patient 05/31/2025 9:24 PM EDT [facility] Blood BLOOD SPECIMEN / Unknown 05/31/2025 9:21 PM EDT 05/31/2025 9:24 PM EDT us Stephen Pickard MD POINT OF CARE TEST ORDERABLE S Final Result Performing Organization Address [facility] Co de Phone Number [facility] [address] [place] [address] * ECG AND WAVEFORMS - TELEMETRY (05/31/2025 7:00 PM EDT) ECG INTERPRET Atrial Fib [facility] 05/31/2025 7:00 PM EDT Narrative [facility] - 05/31/2025 7:27 PM EDT ROUTINE W/ PVCS(CW) See Clinical Report link for waveform capture us Unknown Provider POINT OF CARE CARDIOLOGY Final Result Performing Organization Address [facility] Co de Phone Number [facility] [address] [place] [address] * (ABNORMAL) GLUCOSE METER POC (05/31/2025 6:37 PM EDT) Glucose Meter POC 167(H) 70 - 100 mg/dL 05/31/2025 6:39 PM EDT [facility] Sample Type Capillary 05/31/2025 6:39 PM EDT [facility] Patient Status Non-Critical Patient 05/31/2025 6:39 PM EDT [facility] Blood BLOOD SPECIMEN / Unknown 05/31/2025 6:37 PM EDT 05/31/2025 6:39 PM EDT Stephen Pickard MD POINT OF CARE TEST ORDERABLE S Final Result [facility] [address] [place] [address] * GLUCOSE METER POC (05/31/2025 4:29 PM EDT) [facility] Signature Glucose Meter POC 95 70 - 100 mg/dL 05/31/2025 4:30 PM EDT [facility] Sample Type Capillary 05/31/2025 4:30 PM EDT [facility] Patient Status Non-Critical Patient 05/31/2025 4:30 PM EDT [facility] Blood BLOOD SPECIMEN / Unknown 05/31/2025 4:29 PM EDT 05/31/2025 4:30 PM EDT Stephen Pickard MD POINT OF CARE TEST ORDERABLE S Final Result Performing Organization Address City/[facility]/ZIP Co de Phone Number [facility] [address] [place] [address] * ECG AND WAVEFORMS - TELEMETRY (05/31/2025 4:24 PM EDT) ECG INTERPRET Atrial Fib [facility] 05/31/2025 4:24 PM EDT Narrative [facility] - 05/31/2025 4:25 PM EDT TACHY//AC See Clinical Report link for waveform capture us Unknown Provider POINT OF CARE CARDIOLOGY Final Result Performing Organization Address City/[facility]/ZIP Co de Phone Number [facility] [address] [place] [phone] * ECG AND WAVEFORMS - TELEMETRY (05/31/2025 4:23 PM EDT) ECG INTERPRET Atrial Fib [facility] 05/31/2025 4:23 PM EDT Narrative [facility] - 05/31/2025 4:24 PM EDT See Clinical Report link for waveform capture us Unknown Provider POINT OF CARE CARDIOLOGY Final Result Performing Organization Address [facility] Co de Phone Number [facility] [address] [place] [address] * (ABNORMAL) GLUCOSE METER POC (05/31/2025 11:45 AM EDT) Glucose Meter POC 123(H) 70 - 100 mg/dL 05/31/2025 11:47 AM EDT [facility] Sample Type Capillary 05/31/2025 11:47 AM EDT [facility] Patient Status Non-Critical Patient 05/31/2025 11:47 AM EDT [facility] Blood BLOOD SPECIMEN / Unknown 05/31/2025 11:45 AM EDT 05/31/2025 11:47 AM EDT us Stephen Pickard MD POINT OF CARE TEST ORDERABLE S Final Result Performing Organization Address [facility] Co de Phone Number [facility] [address] [place] [address] * ECG AND WAVEFORMS - TELEMETRY (05/31/2025 10:35 AM EDT) ECG INTERPRET Atrial Fib [facility] 05/31/2025 10:3 5 AM EDT Narrative [facility] - 05/31/2025 10:36 AM EDT See Clinical Report link for waveform capture us Unknown Provider POINT OF CARE CARDIOLOGY Final Result Performing Organization Address [facility] Co de Phone Number [facility] [address] [place] [address] * ECG AND WAVEFORMS - TELEMETRY (05/31/2025 7:58 AM EDT) ECG INTERPRET Atrial Fib [facility] 05/31/2025 7:58 AM EDT Narrative [facility] - 05/31/2025 8:02 AM EDT ROUTINE//AC See Clinical Report link for waveform capture us Unknown Provider POINT OF CARE CARDIOLOGY Final Result [facility] [address] [place] [address] * (ABNORMAL) RENAL FUNCTION PANEL (05/31/2025 7:29 AM EDT) Sodium 137 136 - 145 mmol/L 05/31/2025 8:37 AM EDT [facility] Potassium 3.7 3.5 - 5.0 mmol/L 05/31/2025 8:37 AM EDT [facility] Chloride 108(H) 98 - 107 mmol/L 05/31/2025 8:37 AM EDT [facility] Total CO2 20(L) 22 - 29 mmol/L 05/31/2025 8:37 AM EDT [facility] Anion Gap 9 7 - 16 mmol/L 05/31/2025 8:37 AM EDT [facility] Calcium 8.1(L) 8.8 - 10.4 mg/dL 05/31/2025 8:37 AM EDT [facility] Glucose Lvl 110(H) 70 - 99 mg/dL 05/31/2025 8:37 AM EDT [facility] BUN 10 8 - 23 mg/dL 05/31/2025 8:37 AM EDT [facility] Creatinine 0.81 0.51 - 1.30 mg/dL 05/31/2025 8:37 AM EDT [facility] Albumin 2.9(L) 3.2 - 4.6 gm/dL 05/31/2025 8:37 AM EDT [facility] Phosphorus 2.5 2.5 - 4.5 mg/dL 05/31/2025 8:37 AM EDT [facility] eGFR (CKD-EPIcr 2020) 71 >=60 mL/min/1.7 3 m2 05/31/2025 8:37 AM EDT [facility] Comment:Estimated GFR was ca lculated using the CKD-EPIcr (2020) equation refit without race. The equation is recommended by the [employer] - [place] [employer]ph[employer] Task Force. Blood VENOUS BLOOD / Unknown Venipuncture / Unknown 05/31/2025 7:29 AM EDT 05/31/2025 7:53 AM EDT us Stephen Pickard MD CHEMISTRY ORDERABLES Final R esult [facility] [address] [facility] , [place] [address] * (ABNORMAL) CBC (05/31/2025 7:29 AM EDT) WBC 3.7 3.7 - 10.3 x10(3)/mcL 05/31/2025 8:13 AM EDT [facility] RBC 2.29(L) 3.90 - 5.20 x10(6)/mcL 05/31/2025 8:13 AM EDT [facility] Hgb 7.9(L) 11.2 - 15.7 g/dL 05/31/2025 8:13 AM EDT [facility] Hct 24.6(L) 34.0 - 45.0 % 05/31/2025 8:13 AM EDT [facility] MCV 107.4(H) 80.0 - 100.0 fL 05/31/2025 8:13 AM EDT [facility] MCH 34.5(H) 26.0 - 34.0 pg 05/31/2025 8:13 AM EDT [facility] MCHC 32.1 30.7 - 35.5 g/dL 05/31/2025 8:13 AM EDT [facility] RDW 19.1(H) <=14.9 % 05/31/2025 8:13 AM EDT [facility] Platelet 86(L) 155 - 369 x10(3)/mcL 05/31/2025 8:13 AM EDT [facility] MPV 12.5 8.8 - 12.5 fL 05/31/2025 8:13 AM EDT [facility] Blood VENOUS BLOOD / Unknown Venipuncture / Unknown 05/31/2025 7:29 AM EDT 05/31/2025 7:52 AM EDT us Stephen Pickard MD HEMATOLOGY ORDERABLES Final Result [facility] [address] [facility], [address] [place] [id number] * (ABNORMAL) GLUCOSE METER POC (05/30/2025 9:16 PM EDT) Glucose Meter POC 173(H) 70 - 100 mg/dL 05/30/2025 9:17 PM EDT [facility] Sample Type Capillary 05/30/2025 9:17 PM EDT [facility] Patient Status Non-Critical Patient 05/30/2025 9:17 PM EDT [facility] Blood BLOOD SPECIMEN / Unknown 05/30/2025 9:16 PM EDT 05/30/2025 9:17 PM EDT Stephen Pickard MD POINT OF CARE TEST ORDERABLE S Final Result Performing Organization Address City/[facility]/ZIP Co de Phone Number [facility] [address] [place] [phone] * ECG AND WAVEFORMS - TELEMETRY (05/30/2025 7:03 PM EDT) ECG INTERPRET Atrial Fib [facility] 05/30/2025 7:03 PM EDT Narrative [facility] - 05/30/2025 8:08 PM EDT ROUTINE (HM) QRS 0.09 See Clinical Report link for waveform capture us Unknown Provider POINT OF CARE CARDIOLOGY Final Result Performing Organization Address City/[facility]/ZIP Co de Phone Number [facility] [address] [place] [address] * (ABNORMAL) GLUCOSE METER POC (05/30/2025 5:42 PM EDT) Glucose Meter POC 166(H) 70 - 100 mg/dL 05/30/2025 5:43 PM EDT [facility] Sample Type Capillary 05/30/2025 5:43 PM EDT [facility] Patient Status Non-Critical Patient 05/30/2025 5:43 PM EDT [facility] Blood BLOOD SPECIMEN / Unknown 05/30/2025 5:42 PM EDT 05/30/2025 5:43 PM EDT us Stephen Pickard MD POINT OF CARE TEST ORDERABLE S Final Result Performing Organization Address City/[facility]/ZIP Co de Phone Number [address] [phone] * (ABNORMAL) GLUCOSE METER POC (05/30/2025 11:32 AM EDT) Glucose Meter POC 179(H) 70 - 100 mg/dL 05/30/2025 11:33 AM EDT [facility] Sample Type Capillary 05/30/2025 11:33 AM EDT [facility] Patient Status Non-Critical Patient 05/30/2025 11:33 AM EDT [facility] Blood BLOOD SPECIMEN / Unknown 05/30/2025 11:32 AM EDT 05/30/2025 11:33 AM EDT us Stephen Pickard MD POINT OF CARE TEST ORDERABLE S Final Result Performing Organization Address [facility]/ZIP Co de Phone Number [address] [address] * (ABNORMAL) GLUCOSE METER POC (05/30/2025 8:25 AM EDT) Glucose Meter POC 104(H) 70 - 100 mg/dL 05/30/2025 8:26 AM EDT [facility] Sample Type Capillary 05/30/2025 8:26 AM EDT [facility] Patient Status Non-Critical Patient 05/30/2025 8:26 AM EDT [facility] Blood BLOOD SPECIMEN / Unknown 05/30/2025 8:25 AM EDT 05/30/2025 8:26 AM EDT us Stephen Pickard MD POINT OF CARE TEST ORDERABLE S Final Result [facility] [address] [place] [address] * ECG AND WAVEFORMS - TELEMETRY (05/30/2025 7:00 AM EDT) Pathologist [facility] ECG INTERPRET Atrial Fib [facility] 05/30/2025 7:00 AM EDT Narrative [facility] - 05/30/2025 9:15 AM EDT RS, ROUTINE QRS 0.06 See Clinical Report link for waveform capture us Unknown Provider POINT OF CARE CARDIOLOGY Final Result Performing Organization Address City/[facility]/ZIP Co de Phone Number [facility] [address] [place] [address] * (ABNORMAL) RENAL FUNCTION PANEL (05/30/2025 7:00 AM EDT) [facility] Sodium 135(L) 136 - 145 mmol/L 05/30/2025 8:53 AM EDT [facility] Potassium 4.0 3.5 - 5.0 mmol/L 05/30/2025 8:53 AM EDT [facility] Chloride 108(H) 98 - 107 mmol/L 05/30/2025 8:53 AM EDT [facility] Total CO2 21(L) 22 - 29 mmol/L 05/30/2025 8:53 AM EDT [facility] Anion Gap 6(L) 7 - 16 mmol/L 05/30/2025 8:53 AM EDT [facility] Calcium 7.7(L) 8.8 - 10.4 mg/dL 05/30/2025 8:53 AM EDT [facility] Glucose Lvl 100(H) 70 - 99 mg/dL 05/30/2025 8:53 AM EDT [facility] BUN 13 8 - 23 mg/dL 05/30/2025 8:53 AM EDT [facility] Creatinine 0.80 0.51 - 1.30 mg/dL 05/30/2025 8:53 AM EDT [facility] Albumin 2.9(L) 3.2 - 4.6 gm/dL 05/30/2025 8:53 AM EDT [facility] Phosphorus 2.2(L) 2.5 - 4.5 mg/dL 05/30/2025 8:53 AM EDT [facility] [employer] eGFR (CKD-EPIcr 2020) 72 >=60 mL/min/1.7 3 m2 05/30/2025 8:53 AM EDT [facility] Comment:Estimated GFR was ca lculated using the CKD-EPIcr (2020) equation refit without race. The equation is recommended by the [employer] - [place] [employer] Neph[employer] Task Force. Blood VENOUS BLOOD / Unknown Venipuncture / Unknown 05/30/2025 7:00 AM EDT 05/30/2025 8:17 AM EDT us Stephen Pickard MD CHEMISTRY ORDERABLES Final R esult [facility] [address] [facility] , [place] [address] * (ABNORMAL) CBC (05/30/2025 7:00 AM EDT) WBC 3.4(L) 3.7 - 10.3 x10(3)/mcL 05/30/2025 8:26 AM EDT [facility] RBC 2.09(L) 3.90 - 5.20 x10(6)/mcL 05/30/2025 8:26 AM EDT [facility] Hgb 7.1(L) 11.2 - 15.7 g/dL 05/30/2025 8:26 AM EDT [facility] Hct 22.6(L) 34.0 - 45.0 % 05/30/2025 8:26 AM EDT [facility] MCV 108.1(H) 80.0 - 100.0 fL 05/30/2025 8:26 AM EDT [facility] MCH 34.0 26.0 - 34.0 pg 05/30/2025 8:26 AM EDT [facility] MCHC 31.4 30.7 - 35.5 g/dL 05/30/2025 8:26 AM EDT [facility] [employer], [facility] RDW 19.3(H) <=14.9 % 05/30/2025 8:26 AM EDT [facility] [employer] Platelet 77(L) 155 - 369 x10(3)/mcL 05/30/2025 8:26 AM EDT [facility] [employer] MPV 12.5 8.8 - 12.5 fL 05/30/2025 8:26 AM EDT [facility] [employer] Blood VENOUS BLOOD / Unknown Venipuncture / Unknown 05/30/2025 7:00 AM EDT 05/30/2025 8:17 AM EDT us Stephen Pickard MD HEMATOLOGY ORDERABLES Final Result Performing Organization Address City/[facility]/ZIP Co de Phone Number [facility], [address], [place] [address] * (ABNORMAL) GLUCOSE METER POC (05/29/2025 9:42 PM EDT) [facility] Signature Glucose Meter POC 133(H) 70 - 100 mg/dL 05/29/2025 9:44 PM EDT [facility] Sample Type Capillary 05/29/2025 9:44 PM EDT [facility] Patient Status Non-Critical Patient 05/29/2025 9:44 PM EDT [facility] Blood BLOOD SPECIMEN / Unknown 05/29/2025 9:42 PM EDT 05/29/2025 9:44 PM EDT us Stephen Pickard MD POINT OF CARE TEST ORDERABLE S Final Result [address] [address] * ECG AND WAVEFORMS - TELEMETRY (05/29/2025 7:03 PM EDT) ECG INTERPRET Atrial Fib [facility] 05/29/2025 7:03 PM EDT Narrative [facility] - 05/29/2025 7:59 PM EDT ROUTINE (HM) QRS 0.09 See Clinical Report link for waveform capture us Unknown Provider POINT OF CARE CARDIOLOGY Final Result [facility] [address] [place] [address] * (ABNORMAL) GLUCOSE METER POC (05/29/2025 5:39 PM EDT) Glucose Meter POC 152(H) 70 - 100 mg/dL 05/29/2025 5:41 PM EDT [facility] Sample Type Capillary 05/29/2025 5:41 PM EDT [facility] Patient Status Non-Critical Patient 05/29/2025 5:41 PM EDT [facility] Blood BLOOD SPECIMEN / Unknown 05/29/2025 5:39 PM EDT 05/29/2025 5:41 PM EDT us Stephen Pickard MD POINT OF CARE TEST ORDERABLE S Final Result Performing Organization Address [facility]/[place] [address] * GLUCOSE METER POC (05/29/2025 11:32 AM EDT) Glucose Meter POC 86 70 - 100 mg/dL 05/29/2025 11:33 AM EDT [facility] Sample Type Capillary 05/29/2025 11:33 AM EDT [facility] Patient Status Non-Critical Patient 05/29/2025 11:33 AM EDT [facility] Blood BLOOD SPECIMEN / Unknown 05/29/2025 11:32 AM EDT 05/29/2025 11:33 AM EDT Stephen Pickard MD POINT OF CARE TEST ORDERABLE S Final Result [facility] [address] [place] [address] * (ABNORMAL) GLUCOSE METER POC (05/29/2025 7:20 AM EDT) [facility] Glucose Meter POC 106(H) 70 - 100 mg/dL 05/29/2025 7:22 AM EDT [facility] Sample Type Capillary 05/29/2025 7:22 AM EDT [facility] Patient Status Non-Critical Patient 05/29/2025 7:22 AM EDT [facility] Blood BLOOD SPECIMEN / Unknown 05/29/2025 7:20 AM EDT 05/29/2025 7:22 AM EDT us Stephen Pickard MD POINT OF CARE TEST ORDERABLE S Final Result [facility] [address] [place] [address] * ECG AND WAVEFORMS - TELEMETRY (05/29/2025 7:00 AM EDT) [facility] ECG INTERPRET Atrial Fib [facility] 05/29/2025 7:00 AM EDT Narrative [facility] - 05/29/2025 7:50 AM EDT ECB - ROUTINE QRS 0.11 See Clinical Report link for waveform capture us Unknown Provider POINT OF CARE CARDIOLOGY Final Result [facility] [address] [place] [address] * VANCOMYCIN LEVEL AUC1 (05/29/2025 5:55 AM EDT) Pathologist [facility] Vancomycin AUC1 12.6 mcg/mL 6:54 AM EDT [facility] [employer], [facility] Blood VENOUS STRUCTURE / Unknown Line / Unknown 05/29/2025 5:55 AM EDT 05/29/2025 6:09 AM EDT us Stephen Pickard MD CHEMISTRY ORDERABLES Final R esult [facility] [address] [facility] , [place] [address] * (ABNORMAL) CBC (05/29/2025 5:55 AM EDT) WBC 3.6(L) 3.7 - 10.3 x10(3)/mcL 05/29/2025 6:19 AM EDT [facility] RBC 2.08(L) 3.90 - 5.20 x10(6)/mcL 05/29/2025 6:19 AM EDT [facility] Hgb 7.2(L) 11.2 - 15.7 g/dL 05/29/2025 6:19 AM EDT [facility] Hct 22.7(L) 34.0 - 45.0 % 05/29/2025 6:19 AM EDT [facility] MCV 109.1(H) 80.0 - 100.0 fL 05/29/2025 6:19 AM EDT [facility] MCH 34.6(H) 26.0 - 34.0 pg 05/29/2025 6:19 AM EDT [facility] MCHC 31.7 30.7 - 35.5 g/dL 05/29/2025 6:19 AM EDT [facility] RDW 19.6(H) <=14.9 % 05/29/2025 6:19 AM EDT [facility] Platelet 74(L) 155 - 369 x10(3)/mcL 05/29/2025 6:19 AM EDT [facility] MPV 12.0 8.8 - 12.5 fL 05/29/2025 6:19 AM EDT [facility] Blood VENOUS STRUCTURE / Unknown Line / Unknown 05/29/2025 5:55 AM EDT 05/29/2025 6:09 AM EDT us Luis Manuel Mays MD HEMATOLOGY ORDERABLES Final R esult [facility] [address] [facility] , [place] [address] * (ABNORMAL) BASIC METABOLIC PANEL (05/29/2025 5:55 AM EDT) Sodium 137 136 - 145 mmol/L 05/29/2025 6:40 AM EDT [facility] Potassium 4.2 3.5 - 5.0 mmol/L 05/29/2025 6:40 AM EDT [facility] Chloride 107 98 - 107 mmol/L 05/29/2025 6:40 AM EDT [facility] Total CO2 21(L) 22 - 29 mmol/L 05/29/2025 6:40 AM EDT [facility] Anion Gap 9 7 - 16 mmol/L 05/29/2025 6:40 AM EDT [facility] Calcium 8.1(L) 8.8 - 10.4 mg/dL 05/29/2025 6:40 AM EDT [facility] Glucose Lvl 115(H) 70 - 99 mg/dL 05/29/2025 6:40 AM EDT [facility] BUN 14 8 - 23 mg/dL 05/29/2025 6:40 AM EDT [facility] Creatinine 0.81 0.51 - 1.30 mg/dL 05/29/2025 6:40 AM EDT [facility] eGFR (CKD-EPIcr 2020) 71 >=60 mL/min/1.7 3 m2 05/29/2025 6:40 AM EDT [facility], [facility] Comment:Estimated GFR was ca lculated using the CKD-EPIcr (2020) equation refit without race. The equation is recommended by the National Kidney Foundation - [place] [employer] of Nephrology Task Force. Blood VENOUS STRUCTURE / Unknown Line / Unknown 05/29/2025 5:55 AM EDT 05/29/2025 6:09 AM EDT us Luis Manuel Mays MD CHEMISTRY ORDERABLES Final Re sult [facility] [address] [facility] , [place] [address] * MAGNESIUM LEVEL (05/29/2025 5:55 AM EDT) [facility] Magnesium 2.0 1.6 - 2.4 mg/dL 05/29/2025 6:40 AM EDT [facility] Blood VENOUS STRUCTURE / Unknown Line / Unknown 05/29/2025 5:55 AM EDT 05/29/2025 6:09 AM EDT Luis Manuel Mays MD CHEMISTRY ORDERABLES Final Re sult Performing Organization Address [facility] Phone Number [address] , [place] [address] * (ABNORMAL) PHOSPHORUS LEVEL (05/29/2025 5:55 AM EDT) [facility] Phosphorus 2.4(L) 2.5 - 4.5 mg/dL 05/29/2025 6:40 AM EDT [facility] Blood VENOUS STRUCTURE / Unknown Line / Unknown 05/29/2025 5:55 AM EDT 05/29/2025 6:09 AM EDT us Luis Manuel Mays MD CHEMISTRY ORDERABLES Final Re sult Performing Organization Address [facility] Phone Number [facility] [employer] , [place] [phone] * (ABNORMAL) TROPONIN-T HIGH SENSITIVITY 2HR (05/29/2025 2:31 AM EDT) [facility] xu-[id number]-P 2HR 47(H) <14 ng/L 05/29/2025 2:57 AM EDT [facility] hs-cTnT 2Hr Delta from Baseline -3 <4 ng/L 05/29/2025 2:57 AM EDT [facility] Blood VENOUS BLOOD / Unknown Venipuncture / Unknown 05/29/2025 2:31 AM EDT 05/29/2025 2:33 AM EDT Narrative [facility] - 05/29/2025 2:57 AM EDT Ingestion of angie doses of biotin (>5 mg/day) taken within 8 hours of drawing blood sample can interfere with this immunoassay test. us Michael Beltre MD CHEMISTRY ORDERABLES Mita lina Result [facility] , [address] [place] [id number] * CT ANGIOGRAM PULMONARY W CONTRAST (05/29/2025 1:07 AM EDT) Anatomical Region Laterality Modality Chest Computed Tomogra phy 05/29/2025 1:07 AM EDT Impressions 05/29/2025 1:29 AM EDT 1. No acute pulmonary embolism 2. Cardiomegaly and pulmonary vascular congestion with bibasilar atelectasis/pneumonia and pleural effusions. - Note: Radiology results need to be interpreted within a comprehensive clinical context. If you have questions about the radiology report, please contact the office of the ordering clinician. Narrative 05/29/2025 1:[address] PULMONARY ANGIOGRAM, 05/29/2025 1:07 AM CLINICAL HISTORY: -CP/ SOB/ Tachycardia Rule out PE. COMPARISON: None. TECHNIQUE: PE protocol CT angiogram of the chest using Isovue 370 IV contrast as recorded in [employer]. 2-D multiplanar reconstructions and 3-D MIP reconstructions reviewed. Dose 1 : CT DLP Total : 236.6 mGycm DLP Spiral Max : 231.09 mGycm Maximum CTDI Vol : 6 mGy FINDINGS: Adequate visualization of the pulmonary arteries to the segmental/subsegmental level. No acute pulmonary embolism. There is consolidation at the lung bases with moderate bilateral pleural effusions and prominence of the interstitial markings. Moderate emphysema is noted. The trachea is patent. There is no pneumothorax. The heart is enlarged but there is no pericardial effusion. The thoracic aorta is normal. There are no enlarged thoracic lymph nodes. The included thyroid gland and esophagus are normal and there is no hiatal hernia. Cysts of varying density are in the left kidney. There are remote compression deformities in the spine Coronary artery calcification: Severe. Procedure Note Zurdo England MD - 05/29/2025 CT PULMONARY ANGIOGRAM, 05/29/2025 1:07 AM CLINICAL HISTORY: -CP/ SOB/ Tachycardia Rule out PE. COMPARISON: None. TECHNIQUE: PE protocol CT angiogram of the chest using Isovue 370 IVcontrast as recorded in EPIC. 2-D multiplanar reconstructions and 3-D MIP reconstructions reviewed. Dose 1 : CT DLP Total : 236.6 mGycm DLP Spiral Max : 231.09 mGycm Maximum CTDI Vol : 6 mGy FINDINGS: Adequate visualization of the pulmonary arteries to the segmental/subsegmental level. No acute pulmonary embolism. There is consolidation at the lung bases with moderate bilateral pleural effusions and prominence of the interstitial markings. Moderate emphysemais noted. The trachea is patent. There is no pneumothorax. The heart isenlarged but there is no pericardial effusion. The thoracic aorta is normal. Thereare no enlarged thoracic lymph nodes. The included thyroid gland and esophagusare normal and there is no hiatal hernia. Cysts of varying density are in theleft kidney. There are remote compression deformities in the spine Coronary artery calcification: Severe. IMPRESSION: 1. No acute pulmonary embolism 2. Cardiomegaly and pulmonary vascular congestion with bibasilar atelectasis/pneumonia and pleural effusions. - Note: Radiology results need to be interpreted within a comprehensiveclinical context. If you have questions about the radiology report, please contactthe office of the ordering clinician. Michael Beltre MD IMG CT ORDERABLES Final R esult * XR CHEST AP PORTABLE (05/29/2025 12:53 AM EDT) Anatomical Region Laterality Modality Chest Radiographic Barbie ging 05/29/2025 12:5 3 AM EDT Impressions 05/29/2025 12:57 AM EDT 1. Improved pulmonary aeration and vascularity Note: Radiology results need to be interpreted within a comprehensive clinical context. If you have questions about the radiology report, please contact the office of the ordering clinician. Narrative 05/29/2025 12:57 AM EDT CLINICAL HISTORY: -code chest pain. COMPARISON: 3 days ago. TECHNIQUE: XR CHEST AP PORTABLE on 05/29/2025 12:53 AM. FINDINGS: The right PICC is unchanged. Pulmonary aeration and vascularity has improved. There are moderate left and small right pleural effusions without a pneumothorax. The heart is enlarged. Procedure Note Zurdo England MD - 05/29/2025 CLINICAL HISTORY: -code chest pain. COMPARISON: 3 days ago. TECHNIQUE: XR CHEST AP PORTABLE on 05/29/2025 12:53 AM. FINDINGS: The right PICC is unchanged. Pulmonary aeration and vascularityhas improved. There are moderate left and small right pleural effusionswithout a pneumothorax. The heart is enlarged. IMPRESSION: 1. Improved pulmonary aeration and vascularity Note: Radiology results need to be interpreted within a comprehensiveclinical context. If you have questions about the radiology report, please contactthe office of the ordering clinician. Michael Beltre MD IMG DIAGNOSTIC IMAGING OR DERABLES Final Result * (ABNORMAL) TROPONIN-T HIGH SENSITIVITY BASELINE W/ REFLEX (05/29/2025 12:48 AM EDT) Pathologist [facility] [id number]-[id number] 50(H) <14 ng/L 05/29/2025 1:13 AM EDT [facility] Blood VENOUS BLOOD / Unknown Venipuncture / Unknown 05/29/2025 12:48 AM EDT 05/29/2025 12:48 AM EDT Narrative [facility] - 05/29/2025 1:13 AM EDT Ingestion of angie doses of biotin (>5 mg/day) taken within 8 hours of drawing blood sample can interfere with this immunoassay test. Michael Beltre MD CHEMISTRY ORDERABLES Mita l Result [facility] [address] [facility] , [place] [address] * (ABNORMAL) HEMOGLOBIN AND HEMATOCRIT (05/29/2025 12:48 AM EDT) Pathologist [facility] Hgb 8.2(L) 11.2 - 15.7 g/dL 05/29/2025 12:53 AM EDT [facility] Hct 25.5(L) 34.0 - 45.0 % 05/29/2025 12:53 AM EDT [facility] Blood VENOUS BLOOD / Unknown Venipuncture / Unknown 05/29/2025 12:48 AM EDT 05/29/2025 12:48 AM EDT us Michael Beltre MD HEMATOLOGY ORDERABLES Fin al Result [facility] 1 [facility], [place] [address] * EK EKG 12 LEAD (05/29/2025 12:28 AM EDT) Anatomical Region Laterality Modality Electrocardiogra phy 05/28/2025 11:3 6 PM EDT Impressions 05/29/2025 7:[address] [facility] Test Date: 2025-05-28 Pat Name: SKYLER NICOLEVAN Department: DEPID Room: [facility] Gender: Female Directory Carrier: : 1940 Requested By: STEPHEN Earl Order Number: [id number] Reading MD: Shayy Vega DO Measurements Intervals Cecil Rate: 108 P: 0 GA: 0 QRS: 12 QRSD: 86 T: 135 QT: 309 QTc: 416 Interpretive Statements ATRIAL FIBRILLATION WITH RAPID VENTRICULAR RESPONSE ABERRANT COMPLEXES VERSUS PVC'S ANTEROSEPTAL MYOCARDIAL INFARCTION, PROBABLY OLD Electronically Signed On 05-29-2025 07:24:13 EDT by Shayy Vega DO Narrative Procedure Note Shayy Vega DO - 05/29/[address] [facility] Test Date: 2025-05-28 Pat Name: SKYLER BAUTISTA Department: DEPID Room: 5425 Gender: Female Directory Carrier: : 1940 Requested By: STEPHEN Earl Order Number: [id number] Reading MD: Shayy Vega DO Measurements Intervals Cecil Rate: 108 P: 0 GA: 0 QRS: 12 QRSD: 86 T: 135 QT: 309 QTc: 416 Interpretive Statements ATRIAL FIBRILLATION WITH RAPID VENTRICULAR RESPONSE ABERRANT COMPLEXES VERSUS PVC'S ANTEROSEPTAL MYOCARDIAL INFARCTION, PROBABLY OLD Electronically Signed On 05-29-2025 07:24:13 EDT by Shayy Vega DO Stephen Pickard MD IMG ECG ORDERABLES Final Res ult * (ABNORMAL) GLUCOSE METER POC (05/29/2025 12:27 AM EDT) Glucose Meter POC 117(H) 70 - 100 mg/dL 05/29/2025 12:28 AM EDT [facility] Sample Type Capillary 05/29/2025 12:28 AM EDT [facility] Patient Status Non-Critical Patient 05/29/2025 12:28 AM EDT [facility] Blood BLOOD SPECIMEN / Unknown 05/29/2025 12:27 AM EDT 05/29/2025 12:28 AM EDT Stephen Pickard MD POINT OF CARE TEST ORDERABLE S Final Result [facility] [address] [place] [id number] * ECG AND WAVEFORMS - TELEMETRY (05/28/2025 8:59 PM EDT) [facility] ECG INTERPRET Atrial Fib [facility] 05/28/2025 8:59 PM EDT Narrative [facility] - 05/28/2025 9:01 PM EDT NEW ADMIT/MS QRS 0.11 See Clinical Report link for waveform capture us Unknown Provider POINT OF CARE CARDIOLOGY Final Result [facility] [address] [place] [id number] * (ABNORMAL) GLUCOSE METER POC (05/28/2025 5:37 PM EDT) Glucose Meter POC 121(H) 70 - 100 mg/dL 05/28/2025 5:39 PM EDT [facility] Sample Type Capillary 05/28/2025 5:39 PM EDT [facility] Patient Status Non-Critical Patient 05/28/2025 5:39 PM EDT [facility] Blood BLOOD SPECIMEN / Unknown 05/28/2025 5:37 PM EDT 05/28/2025 5:39 PM EDT us Stephen Pickard MD POINT OF CARE TEST ORDERABLE S Final Result [facility] [address] [place] [address] * (ABNORMAL) HEMOGLOBIN (05/28/2025 2:51 PM EDT) Hgb 7.5(L) 11.2 - 15.7 g/dL 05/28/2025 4:08 PM EDT [facility] Blood VENOUS BLOOD / Unknown Venipuncture / Unknown 05/28/2025 2:51 PM EDT 05/28/2025 4:00 PM EDT us Stephen Pickard MD HEMATOLOGY ORDERABLES Final Result Performing Organization Address City/[facility]/ZIP Co de Phone Number [facility] 1 [facility] [place] [address] * (ABNORMAL) GLUCOSE METER POC (05/28/2025 11:11 AM EDT) Glucose Meter POC 123(H) 70 - 100 mg/dL 05/28/2025 11:12 AM EDT [facility] Sample Type Capillary 05/28/2025 11:12 AM EDT [facility] Patient Status Non-Critical Patient 05/28/2025 11:12 AM EDT [facility] Blood BLOOD SPECIMEN / Unknown 05/28/2025 11:11 AM EDT 05/28/2025 11:12 AM EDT us Stephen Pickard MD POINT OF CARE TEST ORDERABLE S Final Result Performing Organization Address City/[facility]/ZIP Co de Phone Number [facility] [address] [place] [address] * (ABNORMAL) CBC (05/28/2025 5:35 AM EDT) [facility] WBC 5.8 3.7 - 10.3 x10(3)/mcL 05/28/2025 5:56 AM EDT [facility] RBC 2.22(L) 3.90 - 5.20 x10(6)/mcL 05/28/2025 5:56 AM EDT [facility] Hgb 7.3(L) 11.2 - 15.7 g/dL 05/28/2025 5:56 AM EDT [facility] Hct 24.2(L) 34.0 - 45.0 % 05/28/2025 5:56 AM EDT [facility] MCV 109.0(H) 80.0 - 100.0 fL 05/28/2025 5:56 AM EDT [facility] MCH 32.9 26.0 - 34.0 pg 05/28/2025 5:56 AM EDT [facility] MCHC 30.2(L) 30.7 - 35.5 g/dL 05/28/2025 5:56 AM EDT [facility] RDW 19.9(H) <=14.9 % 05/28/2025 5:56 AM EDT [facility] Platelet 77(L) 155 - 369 x10(3)/mcL 05/28/2025 5:56 AM EDT [facility] MPV 12.8(H) 8.8 - 12.5 fL 05/28/2025 5:56 AM EDT [facility] Blood VENOUS BLOOD / Unknown Venipuncture / Unknown 05/28/2025 5:35 AM EDT 05/28/2025 5:42 AM EDT us Luis Manuel Mays MD HEMATOLOGY ORDERABLES Final R esult [facility] [address] [facility] , [place] [address] * (ABNORMAL) BASIC METABOLIC PANEL (05/28/2025 5:35 AM EDT) Sodium 138 136 - 145 mmol/L 05/28/2025 6:18 AM EDT [facility] Potassium 3.8 3.5 - 5.0 mmol/L 05/28/2025 6:18 AM EDT [facility] Chloride 109(H) 98 - 107 mmol/L 05/28/2025 6:18 AM EDT [facility] Total CO2 20(L) 22 - 29 mmol/L 05/28/2025 6:18 AM EDT [facility] Anion Gap 9 7 - 16 mmol/L 05/28/2025 6:18 AM EDT [facility] Calcium 8.0(L) 8.8 - 10.4 mg/dL 05/28/2025 6:18 AM EDT [facility] Glucose Lvl 141(H) 70 - 99 mg/dL 05/28/2025 6:18 AM EDT [facility], [facility] BUN 19 8 - 23 mg/dL 05/28/2025 6:18 AM EDT [facility], [facility] Creatinine 1.00 0.51 - 1.30 mg/dL 05/28/2025 6:18 AM EDT [facility], [facility] eGFR (CKD-EPIcr 2020) 55(L) >=60 mL/min/1.7 3 m2 05/28/2025 6:18 AM EDT [facility], [facility] Comment:Estimated GFR was ca lculated using the CKD-EPIcr (2020) equation refit without race. The equation is recommended by the National Kidney Foundation - [place] [employer] of Nephrology Task Force. Blood VENOUS BLOOD / Unknown Venipuncture / Unknown 05/28/2025 5:35 AM EDT 05/28/2025 5:42 AM EDT us Luis Manuel Mays MD CHEMISTRY ORDERABLES Final Re sult [facility] [address] [facility] , [place] [address] * MAGNESIUM LEVEL (05/28/2025 5:35 AM EDT) Magnesium 2.2 1.6 - 2.4 mg/dL 05/28/2025 6:18 AM EDT [facility] [employer] [facility] Blood VENOUS BLOOD / Unknown Venipuncture / Unknown 05/28/2025 5:35 AM EDT 05/28/2025 5:42 AM EDT us Luis Manuel Mays MD CHEMISTRY ORDERABLES Final Re sult Performing Organization Address [facility] Co de Phone Number [facility] [id number] [address] , [place] [address] * PHOSPHORUS LEVEL (05/28/2025 5:35 AM EDT) Phosphorus 2.5 2.5 - 4.5 mg/dL 05/28/2025 6:18 AM EDT [facility] [employer] [facility] Blood VENOUS BLOOD / Unknown Venipuncture / Unknown 05/28/2025 5:35 AM EDT 05/28/2025 5:42 AM EDT us Luis Manuel Mays MD CHEMISTRY ORDERABLES Final Re sult Performing Organization Address [facility] de Phone Number [facility] [employer] , [place] [address] * (ABNORMAL) GLUCOSE METER POC (05/28/2025 5:21 AM EDT) Glucose Meter POC 130(H) 70 - 100 mg/dL 05/28/2025 5:24 AM EDT [facility] Sample Type Capillary 05/28/2025 5:24 AM EDT [facility] Patient Status Non-Critical Patient 05/28/2025 5:24 AM EDT [facility] Blood BLOOD SPECIMEN / Unknown 05/28/2025 5:21 AM EDT 05/28/2025 5:24 AM EDT us Stephen Pickard MD POINT OF CARE TEST ORDERABLE S Final Result Performing Organization Address [facility] Co de Phone Number [facility] [address] [place] [address] * (ABNORMAL) GLUCOSE METER POC (05/27/2025 11:12 PM EDT) Glucose Meter POC 129(H) 70 - 100 mg/dL 05/27/2025 11:15 PM EDT [facility] Sample Type Capillary 05/27/2025 11:15 PM EDT [facility] Patient Status Non-Critical Patient 05/27/2025 11:15 PM EDT [facility] Blood BLOOD SPECIMEN / Unknown 05/27/2025 11:12 PM EDT 05/27/2025 11:15 PM EDT us Stephen Pickard MD POINT OF CARE TEST [place] [address] * (ABNORMAL) HEMOGLOBIN AND HEMATOCRIT (05/27/2025 6:24 PM EDT) Hgb 7.7(L) 11.2 - 15.7 g/dL 05/27/2025 6:42 PM EDT [facility] [employer] Hct 23.6(L) 34.0 - 45.0 % 05/27/2025 6:42 PM EDT [facility] Blood VENOUS BLOOD / Unknown Venipuncture / Unknown 05/27/2025 6:24 PM EDT 05/27/2025 6:35 PM EDT us Reuben Franz APRN HEMATOLOGY ORDERABLES Final Result [facility] [employer] [employer] [address] [facility] , [place] [address] * (ABNORMAL) GLUCOSE METER POC (05/27/2025 6:02 PM EDT) Glucose Meter POC 155(H) 70 - 100 mg/dL 05/27/2025 6:05 PM EDT [facility] Sample Type Capillary 05/27/2025 6:05 PM EDT [facility] Patient Status Non-Critical Patient 05/27/2025 6:05 PM EDT [facility] Blood BLOOD SPECIMEN / Unknown 05/27/2025 6:02 PM EDT 05/27/2025 6:05 PM EDT us Stephen Pickard MD POINT OF CARE TEST [place] [address] * VANCOMYCIN LEVEL (05/27/2025 12:01 PM EDT) Vanco Random 8.4 mcg/mL 05/27/2025 12:24 PM EDT [facility] Blood VENOUS BLOOD / Unknown Venipuncture / Unknown 05/27/2025 12:01 PM EDT 05/27/2025 12:12 PM EDT us Luis Manuel Mays MD CHEMISTRY ORDERABLES Final Re sult Performing Organization Address [facility]/[place] [address] * (ABNORMAL) GLUCOSE METER POC (05/27/2025 11:25 AM EDT) Glucose Meter POC 181(H) 70 - 100 mg/dL 05/27/2025 11:27 AM EDT [facility] Sample Type Capillary 05/27/2025 11:27 AM EDT [facility] Patient Status Non-Critical Patient 05/27/2025 11:27 AM EDT [facility] Blood BLOOD SPECIMEN / Unknown 05/27/2025 11:25 AM EDT 05/27/2025 11:27 AM EDT us Stephen Pickard MD POINT OF CARE TEST ORDERABLE S Final Result Performing Organization Address City/[facility]/ZIP Co de Phone Number [address] [address] * (ABNORMAL) HEMOGLOBIN AND HEMATOCRIT (05/27/2025 9:56 AM EDT) Pathologist [facility] Hgb 8.4(L) 11.2 - 15.7 g/dL 05/27/2025 10:09 AM EDT [facility] Hct 26.3(L) 34.0 - 45.0 % 05/27/2025 10:09 AM EDT [facility] Blood VENOUS BLOOD / Unknown Venipuncture / Unknown 05/27/2025 9:56 AM EDT 05/27/2025 10:06 AM EDT us Reuben Franz COIN COLLECTOR HEMATOLOGY ORDERABLES Final Result [facility] [address] [place] [address] * EC ECHOCARDIOGRAM COMPLETE W DOPPLER AND COLOR FLOW MAPPING (05/27/2025 9:27 AM EDT) [facility] LV DIASTOLIC PLAX 4.6 cm PYRAMIS Ejection Fraction 55-60% PYRAMIS MITRAL REGURGITATION mild PYRAMIS AORTIC STENOSIS no PYRAMIS Anatomical Region Laterality Modality Electrocardiogra phy 05/27/2025 8:17 AM EDT Impressions 05/27/2025 11:41 AM EDT Conclusions * Left ventricular chamber dimension is normal. * Left ventricular function is normal with an estimated ejection fraction of 55-60%. * Left ventricular segmental wall motion is normal. * The left ventricular diastolic function is indeterminate. * There is mild mitral valve regurgitation. * Left atrial chamber dimension is moderately enlarged. * Abnormal septal motion consistent with a post-operative state. * Right ventricular systolic function is normal. * There is severe tricuspid valve regurgitation. * Right atrial chamber dimension is mildly enlarged. * Estimated pulmonary artery systolic pressure is at least 41 mmHg. * The aortic root is mildly dilated. * The proximal ascending aorta is dilated to 3.8 cm. * There is mild aortic valve regurgitation. * There is trivial pericardial effusion. Narrative Procedure Note Shayy Vega DO - 05/27/2025 IMPRESSION Conclusions * Left ventricular chamber dimension is normal. * Left ventricular function is normal with an estimated ejectionfraction of 55-60%. * Left ventricular segmental wall motion is normal. * The left ventricular diastolic function is indeterminate. * There is mild mitral valve regurgitation. * Left atrial chamber dimension is moderately enlarged. * Abnormal septal motion consistent with a post-operative state. * Right ventricular systolic function is normal. * There is severe tricuspid valve regurgitation. * Right atrial chamber dimension is mildly enlarged. * Estimated pulmonary artery systolic pressure is at least 41 mmHg. * The aortic root is mildly dilated. * The proximal ascending aorta is dilated to 3.8 cm. * There is mild aortic valve regurgitation. * There is trivial pericardial effusion. Luis Manuel Mays MD IMG ECHO ORDERABLES Final Res ult * (ABNORMAL) GLUCOSE METER POC (05/27/2025 5:09 AM EDT) [facility] Glucose Meter POC 139(H) 70 - 100 mg/dL 05/27/2025 5:10 AM EDT [facility] Sample Type Capillary 05/27/2025 5:10 AM EDT [facility] Patient Status Non-Critical Patient 05/27/2025 5:10 AM EDT [facility] Blood BLOOD SPECIMEN / Unknown 05/27/2025 5:09 AM EDT 05/27/2025 5:10 AM EDT Stephen Pickard MD POINT OF CARE TEST ORDERABLE S Final Result [facility] [address] [place], [place] [id number] * (ABNORMAL) CBC (05/27/2025 3:25 AM EDT) [facility] WBC 5.1 3.7 - 10.3 x10(3)/mcL 05/27/2025 3:37 AM EDT [facility] RBC 2.28(L) 3.90 - 5.20 x10(6)/mcL 05/27/2025 3:37 AM EDT [facility] Hgb 8.0(L) 11.2 - 15.7 g/dL 05/27/2025 3:37 AM EDT [facility] Hct 24.5(L) 34.0 - 45.0 % 05/27/2025 3:37 AM EDT [facility] MCV 107.5(H) 80.0 - 100.0 fL 05/27/2025 3:37 AM EDT [facility] [facility] MCH 35.1(H) 26.0 - 34.0 pg 05/27/2025 3:37 AM EDT [facility] MCHC 32.7 30.7 - 35.5 g/dL 05/27/2025 3:37 AM EDT [facility] RDW 20.0(H) <=14.9 % 05/27/2025 3:37 AM EDT [facility] Platelet 73(L) 155 - 369 x10(3)/mcL 05/27/2025 3:37 AM EDT [facility] MPV 12.2 8.8 - 12.5 fL 05/27/2025 3:37 AM EDT [facility] Blood VENOUS STRUCTURE / Unknown Venipuncture / Unknown 05/27/2025 3:25 AM EDT 05/27/2025 3:29 AM EDT us Luis Manuel Mays MD HEMATOLOGY ORDERABLES Final R esult [facility] [address] [facility] , [place] [address] * (ABNORMAL) BASIC METABOLIC PANEL (05/27/2025 3:25 AM EDT) Sodium 139 136 - 145 mmol/L 05/27/2025 3:58 AM EDT [facility] Potassium 4.1 3.5 - 5.0 mmol/L 05/27/2025 3:58 AM EDT [facility] Chloride 109(H) 98 - 107 mmol/L 05/27/2025 3:58 AM EDT [facility] Total CO2 20(L) 22 - 29 mmol/L 05/27/2025 3:58 AM EDT [facility] Anion Gap 10 7 - 16 mmol/L 05/27/2025 3:58 AM EDT [facility], [facility] Calcium 8.1(L) 8.8 - 10.4 mg/dL 05/27/2025 3:58 AM EDT [facility], [facility] Glucose Lvl 157(H) 70 - 99 mg/dL 05/27/2025 3:58 AM EDT [facility], [facility] BUN 21 8 - 23 mg/dL 05/27/2025 3:58 AM EDT [facility], [facility] Creatinine 0.92 0.51 - 1.30 mg/dL 05/27/2025 3:58 AM EDT [facility], [facility] eGFR (CKD-EPIcr 2020) 61 >=60 mL/min/1.7 3 m2 05/27/2025 3:58 AM EDT [facility], [facility] Comment:Estimated GFR was ca lculated using the CKD-EPIcr (2020) equation refit without race. The equation is recommended by the National Kidney Foundation - [place] [employer] of Nephrology Task Force. Blood VENOUS STRUCTURE / Unknown Venipuncture / Unknown 05/27/2025 3:25 AM EDT 05/27/2025 3:29 AM EDT us Luis Manuel Mays MD CHEMISTRY ORDERABLES Final Re sult Performing Organization Address [facility] Co de Phone Number [address] , [place] [address] * MAGNESIUM LEVEL (05/27/2025 3:25 AM EDT) Magnesium 2.2 1.6 - 2.4 mg/dL 05/27/2025 3:58 AM EDT [facility], [facility] Blood VENOUS STRUCTURE / Unknown Venipuncture / Unknown 05/27/2025 3:25 AM EDT 05/27/2025 3:29 AM EDT us Luis Manuel Mays MD CHEMISTRY ORDERABLES Final Re sult Performing Organization Address City/[facility]/ZIP Co de Phone Number [facility] [address] [facility] , [address] [place] [phone] * PHOSPHORUS LEVEL (05/27/2025 3:25 AM EDT) Phosphorus 4.1 2.5 - 4.5 mg/dL 05/27/2025 3:58 AM EDT [facility] [employer] Blood VENOUS STRUCTURE / Unknown Venipuncture / Unknown 05/27/2025 3:25 AM EDT 05/27/2025 3:29 AM EDT Luis Manuel Mays MD CHEMISTRY ORDERABLES Final Re sult Performing Organization Address City/[facility]/ZIP Co de Phone Number [facility] [employer] [address] , [place] [address] * (ABNORMAL) HEMOGLOBIN AND HEMATOCRIT (05/27/2025 1:15 AM EDT) Hgb 8.1(L) 11.2 - 15.7 g/dL 05/27/2025 1:32 AM EDT [employer] [facility] Hct 25.2(L) 34.0 - 45.0 % 05/27/2025 1:32 AM EDT [employer] [facility] Blood VENOUS STRUCTURE / Unknown Venipuncture / Unknown 05/27/2025 1:15 AM EDT 05/27/2025 1:26 AM EDT Reuben Franz APRN HEMATOLOGY ORDERABLES Final Result Performing Organization Address [facility] Co de Phone Number [facility] [employer] [facility] [address] [facility] , [place] [address] * (ABNORMAL) GLUCOSE METER POC (05/26/2025 11:17 PM EDT) Pathologist [facility] Glucose Meter POC 137(H) 70 - 100 mg/dL 05/26/2025 11:18 PM EDT [facility] Sample Type Capillary 05/26/2025 11:18 PM EDT [facility] Patient Status Non-Critical Patient 05/26/2025 11:18 PM EDT [facility] Blood BLOOD SPECIMEN / Unknown 05/26/2025 11:17 PM EDT 05/26/2025 11:18 PM EDT us Stephen Pickard MD POINT OF CARE TEST ORDERABLE S Final Result [facility] [address] [place] [address] * CORTISOL 60 MINUTES (05/26/2025 7:36 PM EDT) Cortisol 60 Min 29.60 mcg/dL 8:26 PM EDT [facility] [employer] [employer] Blood VENOUS STRUCTURE / Unknown Venipuncture / Unknown 05/26/2025 7:36 PM EDT 05/26/2025 7:43 PM EDT Narrative [facility] - 05/26/2025 8:26 PM EDT Test performed using Homero Elecsys Cortisol II assay. Stimulated cortisol reference value not established by this laboratory. us Stephen Pickard MD CHEMISTRY ORDERABLES Final R esult Performing Organization Address [facility] Co de Phone Number [facility] [employer] [employer] [address] [place] [address] , [address] [place] [phone] * CORTISOL 30 MINUTES (05/26/2025 7:05 PM EDT) Cortisol 30 Min 25.20 mcg/dL 8:03 PM EDT [facility] [employer] Blood VENOUS BLOOD / Unknown Venipuncture / Unknown 05/26/2025 7:05 PM EDT 05/26/2025 7:19 PM EDT Narrative [facility] [employer] [employer] - 05/26/2025 8:03 PM EDT Test performed using Hom[employer] Elecsys Cortisol II assay. Stimulated cortisol reference value not established by this laboratory. us Stephen Pickard MD CHEMISTRY ORDERABLES Final R esult Performing Organization Address City/[facility]/ZIP Co de Phone Number [facility]REF[facility] [employer] [employer] [address] [place] [address] , [place] [address] * CORTISOL BASELINE (05/26/2025 6:49 PM EDT) Cortisol Baseline 11.20 mcg/dL 05/26/2025 7:39 PM EDT [facility] [employer] Blood VENOUS BLOOD / Unknown Venipuncture / Unknown 05/26/2025 6:49 PM EDT 05/26/2025 6:49 PM EDT Narrative [facility] - 05/26/2025 7:39 PM EDT AM: 4.82 - 19.5 mcg/dL This reference interval was verified on healthy individuals between the hours of 6:00 am -10:00 am. This interval may not be appropriate outside of that time range. PM: 2.47 - 11.9 mcg/dL This reference interval was verified on healthy individuals between the hours of 4:00 pm -8:00 pm. This interval may not be appropriate outside of that time range. Ingestion of angie doses of biotin (>5 mg/day) taken within 8 hours of drawing blood sample can interfere with this immunoassay test. Stephen Pickard MD CHEMISTRY ORDERABLES Final R esult [facility] [employer] [facility] [address] [place] [address], [place] [address] * (ABNORMAL) HEMOGLOBIN AND HEMATOCRIT (05/26/2025 6:26 PM EDT) Hgb 7.8(L) 11.2 - 15.7 g/dL 05/26/2025 6:43 PM EDT [facility] Hct 24.3(L) 34.0 - 45.0 % 05/26/2025 6:43 PM EDT [facility] Blood VENOUS STRUCTURE / Unknown Venipuncture / Unknown 05/26/2025 6:26 PM EDT 05/26/2025 6:37 PM EDT Reuben Franz APRN HEMATOLOGY ORDERABLES Final Result Performing Organization Address City/[facility]/ZIP Co de Phone Number [place] [phone] * (ABNORMAL) TROPONIN-T HIGH SENSITIVITY 6 HR (05/26/2025 6:26 PM EDT) [facility] qa-iNqfeazne-X 6HR 59(H) <14 ng/L 05/26/2025 6:55 PM EDT [facility] hs-cTnT 6Hr Delta from Baseline -3 <12 ng/L 05/26/2025 6:55 PM EDT [facility] Blood VENOUS STRUCTURE / Unknown Venipuncture / Unknown 05/26/2025 6:26 PM EDT 05/26/2025 6:39 PM EDT Narrative [facility] - 05/26/2025 6:55 PM EDT Ingestion of angie doses of biotin (>5 mg/day) taken within 8 hours of drawing blood sample can interfere with this immunoassay test. us Stephen Pickard MD CHEMISTRY ORDERABLES Final R esult [address] [id number] * (ABNORMAL) GLUCOSE METER POC (05/26/2025 6:15 PM EDT) [facility] Glucose Meter POC 118(H) 70 - 100 mg/dL 05/26/2025 6:17 PM EDT [facility] Sample Type Capillary 05/26/2025 6:17 PM EDT [facility] Patient Status Non-Critical Patient 05/26/2025 6:17 PM EDT [facility] Blood BLOOD SPECIMEN / Unknown 05/26/2025 6:15 PM EDT 05/26/2025 6:17 PM EDT us Stephen Pickard MD POINT OF CARE TEST ORDERABLE S Final Result Performing Organization Address City/[facility]/ZIP Co de Phone Number [address] [address] * XR CHEST AP PORTABLE (05/26/2025 5:39 PM EDT) Anatomical Region Laterality Modality Chest Radiographic Barbie ging 05/26/2025 5:39 PM EDT Impressions 05/26/2025 5:42 PM EDT Right arm PICC terminates at the lower SVC. Narrative 05/26/2025 5:42 PM EDT XR CHEST AP PORTABLE, 05/26/2025 5:39 PM CLINICAL HISTORY: -Verify placement of PICC line COMPARISON: Earlier the same day. PROCEDURE COMMENTS: AP portable technique. FINDINGS: Support devices: Right arm PICC terminates at the lower SVC. Sternotomy wires are unchanged. Cardiomegaly, mild pulmonary venous congestion, and small bilateral pleural effusions are unchanged. There is no pneumothorax. Procedure Note Aileen Smith MD - 05/26/2025 XR CHEST AP PORTABLE, 05/26/2025 5:39 PM CLINICAL HISTORY: -Verify placement of PICC line COMPARISON: Earlier the same day. PROCEDURE COMMENTS: AP portable technique. FINDINGS: Support devices: Right arm PICC terminates at the lower SVC. Sternotomywires are unchanged. Cardiomegaly, mild pulmonary venous congestion, and small bilateralpleural effusions are unchanged. There is no pneumothorax. IMPRESSION: Right arm PICC terminates at the lower SVC. Lusi Manuel Mays MD IMG DIAGNOSTIC IMAGING ORDERA BLES Final Result * STAPHYLOCOCCUS AUREUS SCREEN (05/26/2025 4:24 PM EDT) Staph aureus PCR Not Detected Not Detected 05/26/2025 6:20 PM EDT [facility] MRSA PCR Not Detected Not Detected 05/26/2025 6:20 PM EDT [facility] Swab BOTH ANTERIOR NARES / Unknown 05/26/2025 4:24 PM EDT 05/26/2025 4:40 PM EDT Narrative [facility] [employer] - 05/26/2025 6:20 PM EDT Staphylococcus aureus target DNA sequence is not detected. This qualitative assay is intended for the detection of Staphylococcus aureus proprietary sequences for the staphylococcal protein A (spa) gene, the gene for methicillin resistance (mecA), and the staphylococcal cassette chromosome mec (SCCmec) inserted into the SA chromosomal attB site. This assay utilizes real time PCR on the [employer] GeneXpert Infinity, and its performance has been verified by the [facility]. A negative result does not rule out the presence of the Staphylococcus aureus or Methicillin resistant Staphylococcus aureus in concentrations below the limit of detection for the assay. This assay is FDA cleared to test on nares swabs collected on patients >21 years of age. Testing on patients < 21 years of age and on umbilicus sources is not FDA approved by this methodology, but has been developed and validated by the [facility] laboratory. Detailed methodology is available upon request. Luis Manuel Mays MD MICROBIOLOGY - GENERAL ORDERA BLES Final Result Performing Organization Address [facility]/ZIP Co de Phone Number [facility] [employer] [address], [place] [address] * RED BLOOD CELLS REQUEST (05/26/2025 4:17 PM EDT) Product Code [id number] [facility] BLOOD BANK Unit Number [id number] [facility] Crossmatch Interp Compatible [facility] Dispense Status RETURNED [facility] Blood Expiration Date [id number] [facility] ISBT 128 Type 6200 [facility] BLOOD [facility] Blood Unit Volume 300 ml [facility] BLO[facility] BA CODING SYSTEM [id number] [facility] Blood Type (Unit) A POS [facility] 05/26/2025 4:17 PM EDT 05/26/2025 4:21 PM EDT Luis Manuel Mays MD BLOOD PRODUCT ORDERS Final Re sult Performing Organization Address [facility]/ZIP Co de Phone Number [facility] BLOOD [address] [address] * IONIZED CALCIUM - INPATIENT (05/26/2025 4:17 PM EDT) Calcium Ionized 1.13 1.12 - 1.32 mmol/L 05/26/2025 4:29 PM EDT [facility] Blood VENOUS BLOOD / Unknown Venipuncture / Unknown 05/26/2025 4:17 PM EDT 05/26/2025 4:25 PM EDT us Luis Manuel Mays MD CHEMISTRY ORDERABLES Final Re sult [facility] [address] [facility], [place] [address] * BB HISTORY CHECK (05/26/2025 4:17 PM EDT) BB HISTORY CHECK (1) Previous History OK 05/26/2025 11:40 PM EDT [facility] Blood VENOUS BLOOD / Unknown Venipuncture / Unknown 05/26/2025 4:17 PM EDT 05/26/2025 4:21 PM EDT us Luis Manuel Mays MD BLOOD BANK ORDERABLES Final R esult Performing Organization Address [facility] Co de Phone Number [facility] [address] [address] * ANTIBODY SCREEN IGG (05/26/2025 4:17 PM EDT) ABSC IgG Int Negative 05/26/2025 11:40 PM EDT [facility]OD [facility] Blood VENOUS BLOOD / Unknown Venipuncture / Unknown 05/26/2025 4:17 PM EDT 05/26/2025 4:21 PM EDT us Luis Manuel Mays MD BLOOD BANK ORDERABLES Final R esult Performing Organization Address [facility]/ZIP Co de Phone Number [facility] BLOOD [facility] 1 [place], [place] [id number] * ABORH (05/26/2025 4:17 PM EDT) ABORH Int A POS 05/26/2025 11:40 PM EDT [facility] BANK Blood VENOUS BLOOD / Unknown Venipuncture / Unknown 05/26/2025 4:17 PM EDT 05/26/2025 4:21 PM EDT us Luis Manuel Mays MD BLOOD BANK ORDERABLES Final R esult Performing Organization Address City/[facility]/ZIP Co de Phone Number [facility] BANK [address] [place] [address] * POTASSIUM WHOLE BLOOD (05/26/2025 4:17 PM EDT) K-WB 4.6 3.5 - 5.0 mEq/L 05/26/2025 4:29 PM EDT [facility] Blood VENOUS BLOOD / Unknown Venipuncture / Unknown 05/26/2025 4:17 PM EDT 05/26/2025 4:25 PM EDT us Luis Manuel Mays MD CHEMISTRY ORDERABLES Final Re sult Performing Organization Address City/[facility]/ZIP Co de Phone Number [employer] [address] [place] [address] , [place] [address] * FIBRINOGEN (05/26/2025 4:17 PM EDT) Fibrinogen 312 196 - 444 mg/dL 05/26/2025 4:38 PM EDT [employer] [facility] Blood VENOUS BLOOD / Unknown Venipuncture / Unknown 05/26/2025 4:17 PM EDT 05/26/2025 4:21 PM EDT us Stephen Pickard MD HEMATOLOGY ORDERABLES Final Result Performing Organization Address City/[facility]/ZIP Co de Phone Number [employer] [address] [place] [address] , [place] [address] * (ABNORMAL) PT / INR (05/26/2025 4:17 PM EDT) PT 16.0(H) 10.5 - 13.6 second(s) 05/26/2025 4:38 PM EDT [facility] [employer] [facility] INR 1.38(H) 0.91 - 1.18 (ratio) 05/26/2025 4:38 PM EDT [facility] [employer] [facility] Comment: Level of Therapy Indications Target INR Range Standard Dose Treatment and prophylaxis of venous 2.0 - 3.0 thrombosis, pulmonary embolism High Dose High risk patients with mechanical 2.5 - 3.5 heart valves Blood VENOUS BLOOD / Unknown Venipuncture / Unknown 05/26/2025 4:17 PM EDT 05/26/2025 4:21 PM EDT us Stephen Pickard MD HEMATOLOGY ORDERABLES Final Result Performing Organization Address [facility] Co de Phone Number [facility] [employer] [address] , [place] [phone] * (ABNORMAL) HEMOGLOBIN (05/26/2025 4:17 PM EDT) Hgb 8.4(L) 11.2 - 15.7 g/dL 05/26/2025 4:32 PM EDT [facility] [employer] [facility] Blood VENOUS BLOOD / Unknown Venipuncture / Unknown 05/26/2025 4:17 PM EDT 05/26/2025 4:21 PM EDT us Stephen Pickard MD HEMATOLOGY ORDERABLES Final Result Performing Organization Address [facility] Phone Number [facility] [employer] , [place] [phone] * (ABNORMAL) ADRENOCORTICOTROPIC HORMONE -REF LAB (05/26/2025 3:20 PM EDT) ACTH 3.3(L) 7.2 - 63.3 pg/mL 05/28/2025 7:58 PM EDT [employer] Comment: INTERPRETIVE INFORMATION: Adrenocorticotropic Hormone Reference interval based on samples collected between 7 a.m. and 10 a.m. No reference intervals established for p.m. collections. Pediatric reference values are the same as adults (Acta Paediatr Scand 1981;70:341-345). This assay measures intact ACTH 1-39; some types of synthetic ACTH and ACTH fragments are not detected by this assay. Performed By: [facility] [address] [place] [address] Referral Coordinator: Gigi Cheney MD, PhD CLIA Number: [id number] Blood VENOUS BLOOD / Unknown Venipuncture / Unknown 05/26/2025 3:20 PM EDT 05/26/2025 3:23 PM EDT us Stephen Pickard MD CHEMISTRY ORDERABLES Final R esult Performing Organization Address [facility] Co de Phone Number [employer] [address] [place] [address] * (ABNORMAL) HEPATIC FUNCTION PANEL (05/26/2025 2:11 PM EDT) Total Protein 4.9(L) 6.4 - 8.3 gm/dL 05/26/2025 6:41 PM EDT [facility] Albumin 2.9(L) 3.2 - 4.6 gm/dL 05/26/2025 6:41 PM EDT [facility] Bili Direct 0.4(H) 0.0 - 0.3 mg/dL 05/26/2025 6:41 PM EDT [facility] Bili Total 0.8 0.2 - 1.3 mg/dL 05/26/2025 6:41 PM EDT [facility] AST 16 <=40 U/L 05/26/2025 6:41 PM EDT [facility] ALT 9 <=41 U/L 05/26/2025 6:41 PM EDT [facility] Alk Phos 103 36 - 123 U/L 05/26/2025 6:41 PM EDT [facility] Blood VENOUS BLOOD / Unknown Venipuncture / Unknown 05/26/2025 2:11 PM EDT 05/26/2025 2:15 PM EDT us Luis Manuel Mays MD CHEMISTRY ORDERABLES Final Re sult [employer] [facility] [address] [facility] , [address] [place] [phone] * CORTISOL (05/26/2025 2:11 PM EDT) Pathologist [facility] Cortisol 7.55 mcg/dL 05/26/2025 2:5 1 PM EDT [employer] [facility] Blood VENOUS BLOOD / Unknown Venipuncture / Unknown 05/26/2025 2:11 PM EDT 05/26/2025 2:15 PM EDT Narrative [facility] - 05/26/2025 2:51 PM EDT AM: 4.82 - 19.5 mcg/dL This reference interval was verified on healthy individuals between the hours of 6:00 am -10:00 am. This interval may not be appropriate outside of that time range. PM: 2.47 - 11.9 mcg/dL This reference interval was verified on healthy individuals between the hours of 4:00 pm -8:00 pm. This interval may not be appropriate outside of that time range. Ingestion of angie doses of biotin (>5 mg/day) taken within 8 hours of drawing blood sample can interfere with this immunoassay test. us Stephen Pickard MD CHEMISTRY ORDERABLES Final R esult Performing Organization Address [facility] de Phone Number [facility] [employer] [facility] [address] [facility] , [place] [address] * (ABNORMAL) HEMOGLOBIN (05/26/2025 2:11 PM EDT) [facility] Hgb 7.0(L) 11.2 - 15.7 g/dL 05/26/2025 2:21 PM EDT [employer] [facility] Blood VENOUS BLOOD / Unknown Venipuncture / Unknown 05/26/2025 2:11 PM EDT 05/26/2025 2:15 PM EDT us Stephen Pickard MD HEMATOLOGY ORDERABLES Final Result Performing Organization Address [facility] de Phone Number [employer] [facility] [address] [facility] , [place] [address] * (ABNORMAL) TROPONIN-T HIGH SENSITIVITY 2HR (05/26/2025 2:11 PM EDT) [facility] dx-fFkkgxehq-G 2HR 70(H) <14 ng/L 05/26/2025 2:52 PM EDT [facility], [facility] hs-cTnT 2Hr Delta from Baseline 8(H) <4 ng/L 05/26/2025 2:52 PM EDT [facility] LAB [facility], [facility] Blood VENOUS BLOOD / Unknown Venipuncture / Unknown 05/26/2025 2:11 PM EDT 05/26/2025 2:15 PM EDT Narrative [facility] - 05/26/2025 2:52 PM EDT Ingestion of angie doses of biotin (>5 mg/day) taken within 8 hours of drawing blood sample can interfere with this immunoassay test. us Stephen Pickard MD CHEMISTRY ORDERABLES Final R esult [facility], [facility] [address] [facility] , [place] [address] * (ABNORMAL) BLOOD GAS ARTERIAL (05/26/2025 1:01 PM EDT) [facility] pH 7.41 7.35 - 7.45 pH 05/26/2025 1:14 PM EDT [facility], [facility] pCO2 32(L) 35 - 45 mmHg 05/26/2025 1:14 PM EDT [facility], [facility] pO2 75(L) 80 - 100 mmHg 05/26/2025 1:14 PM EDT [facility], [facility] HCO3 19.6(L) 22.0 - 26.0 mmol/L 05/26/2025 1:14 PM EDT [facility], [facility] TCO2 19(L) 22 - 29 mmol/L 05/26/2025 1:14 PM EDT [facility] Base Excess -4.1(L) -2.0 - 3.0 mmol/L 05/26/2025 1:14 PM EDT [facility] O2 Sat 95.9 95.0 - 98.0 % 05/26/2025 1:14 PM EDT [facility] [employer] O2 2L 05/26/2025 1:14 PM EDT [facility] Blood ARTERIAL BLOOD / Unknown Arterial / Unknown 05/26/2025 1:01 PM EDT 05/26/2025 1:12 PM EDT Stephen Pickard MD CHEMISTRY ORDERABLES Final R esult Performing Organization Address City/[facility] Co de Phone Number [facility] [address] [facility] , [place] [address] * PROCALCITONIN (05/26/2025 1:00 PM EDT) Procalcitonin 0.08 <=0.49 ng/mL 05/26/2025 1:55 PM EDT [facility] Blood VENOUS BLOOD / Unknown Venipuncture / Unknown 05/26/2025 1:00 PM EDT 05/26/2025 1:18 PM EDT Narrative [facility] - 05/26/2025 1:55 PM EDT Procalcitonin <0.50 ng/mL: Procalcitonin levels below 0.50 ng/mL on the first day of ICU admission represent a low risk for progression to severe sepsis and/or septic shock Procalcitonin >=0.50 ng/mL and <=2.00 ng/mL: If the procalcitonin measurement is performed shortly after the systemic infection process has started (usually less than 6 hours), this value may still be low. As various non-infectious conditions are known to induce procalcitonin as well, procalcitonin levels between 0.50 ng/mL and 2.00 ng/mL should be reviewed carefully to take into account the specific clinical background and condition(s) of the patient. Procalcitonin >2.00 ng/mL: Procalcitonin levels above 2.00 ng/mL on the first day of ICU admission represent a high risk for progression to severe sepsis and/or septic shock. Stephen Pickard MD CHEMISTRY ORDERABLES Final R esult Performing Organization Address [facility]/ZIP Co de Phone Number PREFERRED LAB [facility] [employer], [facility] [address] [facility], [place] [address] * LACTIC ACID (05/26/2025 1:00 PM EDT) Pathologist [facility] Lactic Acid 1.5 0.5 - 1.9 mmol/L 05/26/2025 1:30 PM EDT [facility] Blood VENOUS BLOOD / Unknown Venipuncture / Unknown 05/26/2025 1:00 PM EDT 05/26/2025 1:16 PM EDT us Stephen Pickard MD CHEMISTRY ORDERABLES Final R esult Performing Organization Address [facility] Co de Phone Number [facility] 1 [place] [address] * (ABNORMAL) BASIC METABOLIC PANEL (05/26/2025 1:00 PM EDT) Pathologist [facility] Sodium 136 136 - 145 mmol/L 05/26/2025 1:33 PM EDT [facility] Potassium 5.3(H) 3.5 - 5.0 mmol/L 05/26/2025 1:33 PM EDT [facility] Comment:Hemolysis detected b y analyzer. Hemolysis at this level may increase the potassium concentration > 0.1 mmol/L. Recommend recollection if clinically indicated. Chloride 108(H) 98 - 107 mmol/L 05/26/2025 1:33 PM EDT [facility] Total CO2 19(L) 22 - 29 mmol/L 05/26/2025 1:33 PM EDT [facility] Anion Gap 9 7 - 16 mmol/L 05/26/2025 1:33 PM EDT [facility] Calcium 7.7(L) 8.8 - 10.4 mg/dL 05/26/2025 1:33 PM EDT [facility] Glucose Lvl 129(H) 70 - 99 mg/dL 05/26/2025 1:33 PM EDT [facility] BUN 22 8 - 23 mg/dL 05/26/2025 1:33 PM EDT [facility] Creatinine 0.94 0.51 - 1.30 mg/dL 05/26/2025 1:33 PM EDT [facility] eGFR (CKD-EPIcr 2020) 59(L) >=60 mL/min/1. 73 m2 05/26/2025 1:33 PM EDT [facility] Comment:Estimated GFR was ca lculated using the CKD-EPIcr (2020) equation refit without race. The equation is recommended by the [employer] Kid[employer] - [place] [employer] Neph[employer] Task Force. Blood VENOUS BLOOD / Unknown Venipuncture / Unknown 05/26/2025 1:00 PM EDT 05/26/2025 1:16 PM EDT us Stephen Pickard MD CHEMISTRY ORDERABLES Final R esult [facility] 1 [place] [address] * (ABNORMAL) CBC (05/26/2025 1:00 PM EDT) WBC 4.8 3.7 - 10.3 x10(3)/mcL 05/26/2025 1:34 PM EDT [facility] RBC 2.11(L) 3.90 - 5.20 x10(6)/mcL 05/26/2025 1:34 PM EDT [facility] Hgb 7.4(L) 11.2 - 15.7 g/dL 05/26/2025 1:34 PM EDT [facility] Hct 23.0(L) 34.0 - 45.0 % 05/26/2025 1:34 PM EDT [facility] MCV 109.0(H) 80.0 - 100.0 fL 05/26/2025 1:34 PM EDT [facility] MCH 35.1(H) 26.0 - 34.0 pg 05/26/2025 1:34 PM EDT [facility] MCHC 32.2 30.7 - 35.5 g/dL 05/26/2025 1:34 PM EDT [facility] RDW 20.8(H) <=14.9 % 05/26/2025 1:34 PM EDT [facility] Platelet 65(L) 155 - 369 x10(3)/mcL 05/26/2025 1:34 PM EDT [facility] MPV 13.6(H) 8.8 - 12.5 fL 05/26/2025 1:34 PM EDT [facility] Blood VENOUS BLOOD / Unknown Venipuncture / Unknown 05/26/2025 1:00 PM EDT 05/26/2025 1:16 PM EDT Stephen Pickard MD HEMATOLOGY ORDERABLES Final Result [facility] [address] [facility], [place] [address] * (ABNORMAL) TROPONIN-T HIGH SENSITIVITY BASELINE W/ REFLEX (05/26/2025 1:00 PM EDT) [facility] dt-uDijyrrjb-X 62(H) <14 ng/L 05/26/2025 1:37 PM EDT [facility] Blood VENOUS BLOOD / Unknown Venipuncture / Unknown 05/26/2025 1:00 PM EDT 05/26/2025 1:16 PM EDT Narrative [facility] - 05/26/2025 1:37 PM EDT Ingestion of angie doses of biotin (>5 mg/day) taken within 8 hours of drawing blood sample can interfere with this immunoassay test. Stephen Pickard MD CHEMISTRY ORDERABLES Final R esult [facility] 1 [place] [address] * (ABNORMAL) GLUCOSE METER POC (05/26/2025 12:37 PM EDT) Glucose Meter POC 129(H) 70 - 100 mg/dL 05/26/2025 12:38 PM EDT [facility] Sample Type Capillary 05/26/2025 12:38 PM EDT [facility] Patient Status Non-Critical Patient 05/26/2025 12:38 PM EDT [facility] Blood BLOOD SPECIMEN / Unknown 05/26/2025 12:37 PM EDT 05/26/2025 12:38 PM EDT us Stephen Pickard MD POINT OF CARE TEST ORDERABLE S Final Result [facility] 1 [place] [address] * EK EKG 12 LEAD (05/26/2025 12:27 PM EDT) Anatomical Region Laterality Modality Electrocardiogra phy 05/26/2025 12:4 2 PM EDT Impressions 05/27/2025 7:[address] Test Date: 2025-05-26 Pat Name: SKYLER BAUTISTA Department: DEPID Room: [facility] Gender: Female Directory Carrier: Sekou : 1940 Requested By: STEPHEN Earl Order Number: [id number] Reading MD: Shayy Vega DO Measurements Intervals Cecil Rate: 78 P: 0 GA: 0 QRS: 16 QRSD: 88 T: 27 QT: 364 QTc: 416 Interpretive Statements ATRIAL FIBRILLATION ABERRANT COMPLEXES VERSUS PVC'S LOW QRS VOLTAGE IN PRECORDIAL LEADS POSSIBLE ANTERIOR MYOCARDIAL INFARCTION, PROBABLY OLD ABNORMAL RHYTHM ECG Electronically Signed On 05-27-2025 07:50:53 EDT by Shayy Vega DO Narrative Procedure Note Shayy Vega DO - 05/27/[address] [facility] Test Date: 2025-05-26 Pat Name: SKYLER BAUTISTA Department: DEPID Room: 3417 Gender: Female Directory Carrier: Sekou : 1940 Requested By: STEPHEN Earl Order Number: [id number] Reading MD: Shayy Vega DO Measurements Intervals Cecil Rate: 78 P: 0 GA: 0 QRS: 16 QRSD: 88 T: 27 QT: 364 QTc: 416 Interpretive Statements ATRIAL FIBRILLATION ABERRANT COMPLEXES VERSUS PVC'S LOW QRS VOLTAGE IN PRECORDIAL LEADS POSSIBLE ANTERIOR MYOCARDIAL INFARCTION, PROBABLY OLD ABNORMAL RHYTHM ECG Electronically Signed On 05-27-2025 07:50:53 EDT by Shayy Vega DO us Stephen Pickard MD IMG ECG ORDERABLES Final Res ult * BLOOD CULTURE (NO STAIN) (05/26/2025 11:58 AM EDT) Culture Result No Growth at 120 hours. BLOOD CULTURE (NO STAIN) 05/31/2025 1:00 PM EDT [facility] Blood VENOUS BLOOD / Unknown Venipuncture / Unknown 05/26/2025 11:58 AM EDT 05/26/2025 12:03 PM EDT us Stephen Pickard MD MICROBIOLOGY - GENERAL ORDER CELESTE Final Result Performing Organization Address [facility] Co de Phone Number [facility] [address] [place] [address] , [place] [address] * BLOOD CULTURE (NO STAIN) (05/26/2025 11:58 AM EDT) Culture Result No Growth at 120 hours. BLOOD CULTURE (NO STAIN) 05/31/2025 1:00 PM EDT [facility] Blood VENOUS BLOOD / Unknown Venipuncture / Unknown 05/26/2025 11:58 AM EDT 05/26/2025 12:02 PM EDT us Stephen Pickard MD MICROBIOLOGY - GENERAL ORDER CELESTE Final Result Performing Organization Address City/[facility]/ZIP Co de Phone Number [facility] [address] [place] [address] , [place] [address] * (ABNORMAL) URINE CULTURE (NO STAIN) (05/26/2025 11:16 AM EDT) Culture Positive Growth(A) 05/27/2025 1:42 PM EDT [facility] Culture 3,000 CFU/mL Proteus mirabilis SUSCEPTIB ILITY RESULT 05/27/2025 1:42 PM EDT [facility] Comment:refer to bell guerra on urine culture collected - 05/23/2025 1531 Urine URINARY BLADDER STRUCTURE / Unknown 05/26/2025 11:16 AM EDT 05/26/2025 11:38 AM EDT Stephen Pickard MD MICROBIOLOGY - GENERAL ORDER CELESTE Final Result Performing Organization Address [facility]/ZIP Co de Phone Number [facility] [address] [facility], [place] [address] * EXTRA HUITRON URINE CX (05/26/2025 11:16 AM EDT) Urine URINARY BLADDER STRUCTURE / Unknown 05/26/2025 11:16 AM EDT 05/26/2025 11:32 AM EDT Stephen Pickard MD MICROBIOLOGY - GENERAL ORDER CELESTE Final Result Performing Organization Address [facility] [place] [address] * (ABNORMAL) URINALYSIS REFLEX (05/26/2025 11:16 AM EDT) UA Color Yellow 05/26/2025 11:38 AM EDT [facility] UA Appear Clear Clear 05/26/2025 11:38 AM EDT [facility] UA Glucose Negative Negative mg/dL 05/26/2025 11:38 AM EDT [facility] UA Ketones Negative Negative mg/dL 05/26/2025 11:38 AM EDT [facility] UA Blood Negative Negative 05/26/2025 11:38 AM EDT [facility] UA pH 5.5 5.0 - 8.0 pH 05/26/2025 11:38 AM EDT [facility] UA Protein Negative Negative mg/dL 05/26/2025 11:38 AM EDT [facility] UA Urobilinogen Normal <=1 mg/dL 11:38 AM EDT [facility] UA Bili Negative Negative 05/26/2025 11:38 AM EDT [facility] UA Nitrite Negative Negative 05/26/2025 11:38 AM EDT [facility] UA Leuk Est 1+ (25 Ion/mcl)(A) Negative 05/26/2025 11:38 AM EDT [facility] UA Spec Grav 1.017 1.001 - 1.035 no units 05/26/2025 11:38 AM EDT [facility] Comment:Reference range helga d for random specimens only. UA WBC 5(H) 0 - 4 /HPF 05/26/2025 11:38 AM EDT [facility] UA RBC 1 0 - 3 /HPF 05/26/2025 11:38 AM EDT [facility] UA Squam Epi 2+ /LPF 05/26/2025 11:38 AM EDT [facility] UA Mucus Trace /LPF 05/26/2025 11:38 AM EDT [facility] UA Bacteria Trace(A) Negative /HPF 05/26/2025 11:38 AM EDT [facility] Urine URINARY BLADDER STRUCTURE / Unknown 05/26/2025 11:16 AM EDT 05/26/2025 11:32 AM EDT us Stephen Pickard MD URINE ORDERABLES Final Resul t [facility] [address] [facility] , [place] [address] * XR CHEST AP PORTABLE (05/26/2025 11:04 AM EDT) Anatomical Region Laterality Modality Chest Radiographic Barbie ging 05/26/2025 11:0 4 AM EDT Impressions 05/26/2025 1:03 PM EDT Fluid overload or CHF with pulmonary edema and effusions. - Note: Radiology results need to be interpreted within a comprehensive clinical context. If you have questions about the radiology report, please contact the office of the ordering clinician. Narrative 05/26/2025 1:03 PM EDT XR CHEST AP PORTABLE, 05/26/2025 11:04 AM CLINICAL HISTORY: -fever COMPARISON: April 30, 2025. PROCEDURE COMMENTS: AP portable technique. FINDINGS: Support devices: No visible support devices. 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 Heart size is increased compared to prior study and there is now pulmonary venous congestion and interstitial edema. Small effusions are present, greater on the left. No visible pneumothorax. Procedure Note Farhad Noonan MD - 05/26/2025 XR CHEST AP PORTABLE, 05/26/2025 11:04 AM CLINICAL HISTORY: -fever COMPARISON: April 30, 2025. PROCEDURE COMMENTS: AP portable technique. FINDINGS: Support devices: No visible support devices. 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 Heart size is increasedcompared to prior study and there is now pulmonary venous congestion andinterstitial edema. Small effusions are present, greater on the left. No visible pneumothorax. IMPRESSION: Fluid overload or CHF with pulmonary edema and effusions. - Note: Radiology results need to be interpreted within a comprehensiveclinical context. If you have questions about the radiology report, please contactthe office of the ordering clinician. Stephen Pickard MD IMG DIAGNOSTIC IMAGING ORDER CELESTE Final Result * ECG AND WAVEFORMS - TELEMETRY (05/26/2025 7:53 AM EDT) Pathologist [facility] ECG INTERPRET Sinus Arrythmia [facility] 05/26/2025 7:53 AM EDT Narrative [facility] - 05/26/2025 10:34 AM EDT ROUTINE -HB QRS 0.11 See Clinical Report link for waveform capture Unknown Provider POINT OF CARE CARDIOLOGY Final Result [facility] 1 [place] [address] * (ABNORMAL) RENAL FUNCTION PANEL (05/26/2025 6:15 AM EDT) Sodium 135(L) 136 - 145 mmol/L 05/26/2025 7:27 AM EDT [facility] Potassium 4.6 3.5 - 5.0 mmol/L 05/26/2025 7:27 AM EDT [facility] Chloride 108(H) 98 - 107 mmol/L 05/26/2025 7:27 AM EDT [facility], [facility] Total CO2 19(L) 22 - 29 mmol/L 05/26/2025 7:27 AM EDT [facility], [facility] Anion Gap 8 7 - 16 mmol/L 05/26/2025 7:27 AM EDT [facility], [facility] Calcium 8.0(L) 8.8 - 10.4 mg/dL 05/26/2025 7:27 AM EDT [facility], [facility] Glucose Lvl 120(H) 70 - 99 mg/dL 05/26/2025 7:27 AM EDT [facility], [facility] BUN 20 8 - 23 mg/dL 05/26/2025 7:27 AM EDT [facility], [facility] Creatinine 0.94 0.51 - 1.30 mg/dL 05/26/2025 7:27 AM EDT [facility], [facility] Albumin 3.1(L) 3.2 - 4.6 gm/dL 05/26/2025 7:27 AM EDT [facility], [facility] Phosphorus 1.9(L) 2.5 - 4.5 mg/dL 05/26/2025 7:27 AM EDT [facility], [facility] eGFR (CKD-EPIcr 2020) 59(L) >=60 mL/min/1.7 3 m2 05/26/2025 7:27 AM EDT [facility], [facility] Comment:Estimated GFR was ca lculated using the CKD-EPIcr (2020) equation refit without race. The equation is recommended by the National Kid[employer] - [place] [employer] of Nephrology Task Force. Blood VENOUS BLOOD / Unknown Venipuncture / Unknown 05/26/2025 6:15 AM EDT 05/26/2025 6:53 AM EDT us Stephen Pickard MD CHEMISTRY ORDERABLES Final R esult [facility] [address] [facility] , [place] [address] * (ABNORMAL) CBC (05/26/2025 6:15 AM EDT) WBC 5.6 3.7 - 10.3 x10(3)/mcL 05/26/2025 7:05 AM EDT [facility] RBC 2.39(L) 3.90 - 5.20 x10(6)/mcL 05/26/2025 7:05 AM EDT [facility] Hgb 8.3(L) 11.2 - 15.7 g/dL 05/26/2025 7:05 AM EDT [facility] Hct 25.7(L) 34.0 - 45.0 % 05/26/2025 7:05 AM EDT [facility] MCV 107.5(H) 80.0 - 100.0 fL 05/26/2025 7:05 AM EDT [facility] MCH 34.7(H) 26.0 - 34.0 pg 05/26/2025 7:05 AM EDT [facility] MCHC 32.3 30.7 - 35.5 g/dL 05/26/2025 7:05 AM EDT [facility] RDW 21.1(H) <=14.9 % 05/26/2025 7:05 AM EDT [facility] Platelet 71(L) 155 - 369 x10(3)/[facility] 05/26/2025 7:05 AM EDT [facility] MPV 12.8(H) 8.8 - 12.5 fL 05/26/2025 7:05 AM EDT [facility] Blood VENOUS BLOOD / Unknown Venipuncture / Unknown 05/26/2025 6:15 AM EDT 05/26/2025 6:53 AM EDT us Stephen Pickard MD HEMATOLOGY ORDERABLES Final Result [facility] [address] [facility] , [place] [address] * ECG AND WAVEFORMS - TELEMETRY (05/25/2025 7:00 PM EDT) ECG INTERPRET Atrial Fib [facility] 05/25/2025 7:00 PM EDT Narrative [facility] - 05/25/2025 8:57 PM EDT ROUTINE/GGG QRS 0.05 See Clinical Report link for waveform capture us Unknown Provider POINT OF CARE CARDIOLOGY Final Result Performing Organization Address City/[facility]/ZIP Co de Phone Number [facility] 1 [place] [address] * ECG AND WAVEFORMS - TELEMETRY (05/25/2025 7:57 AM EDT) Pathologist [facility] ECG INTERPRET Sinus Arrythmia [facility] 05/25/2025 7:57 AM EDT Narrative [facility] - 05/25/2025 9:16 AM EDT ROUTINE -HB QRS 0.08 See Clinical Report link for waveform capture us Unknown Provider POINT OF CARE CARDIOLOGY Final Result Performing Organization Address [facility]/ZIP Co de Phone Number [facility] 1 [place] [address] * (ABNORMAL) CBC (05/25/2025 6:50 AM EDT) Pathologist [facility] WBC 6.0 3.7 - 10.3 x10(3)/mcL 05/25/2025 7:55 AM EDT [facility] RBC 2.25(L) 3.90 - 5.20 x10(6)/mcL 05/25/2025 7:55 AM EDT [facility] Hgb 8.0(L) 11.2 - 15.7 g/dL 05/25/2025 7:55 AM EDT [facility] Hct 23.8(L) 34.0 - 45.0 % 05/25/2025 7:55 AM EDT [facility] MCV 105.8(H) 80.0 - 100.0 fL 05/25/2025 7:55 AM EDT [facility] MCH 35.6(H) 26.0 - 34.0 pg 05/25/2025 7:55 AM EDT [facility] MCHC 33.6 30.7 - 35.5 g/dL 05/25/2025 7:55 AM EDT [facility] RDW 21.9(H) <=14.9 % 05/25/2025 7:55 AM EDT [facility] Platelet 77(L) 155 - 369 x10(3)/mcL 05/25/2025 7:55 AM EDT [facility] MPV 13.1(H) 8.8 - 12.5 fL 05/25/2025 7:55 AM EDT [facility] Blood VENOUS BLOOD / Unknown Venipuncture / Unknown 05/25/2025 6:50 AM EDT 05/25/2025 7:10 AM EDT us Lawrence Wolf MD HEMATOLOGY ORDERABLES Final Result [facility] [address] [facility] , [place] [address] * (ABNORMAL) BASIC METABOLIC PANEL (05/25/2025 6:50 AM EDT) Sodium 137 136 - 145 mmol/L 05/25/2025 7:47 AM EDT [facility] Potassium 4.3 3.5 - 5.0 mmol/L 05/25/2025 7:47 AM EDT [facility] Chloride 111(H) 98 - 107 mmol/L 05/25/2025 7:47 AM EDT [facility] Total CO2 19(L) 22 - 29 mmol/L 05/25/2025 7:47 AM EDT [facility] Anion Gap 7 7 - 16 mmol/L 05/25/2025 7:47 AM EDT [facility] Calcium 7.7(L) 8.8 - 10.4 mg/dL 05/25/2025 7:47 AM EDT [facility] Glucose Lvl 191(H) 70 - 99 mg/dL 05/25/2025 7:47 AM EDT [facility] BUN 21 8 - 23 mg/dL 05/25/2025 7:47 AM EDT [facility] Creatinine 0.93 0.51 - 1.30 mg/dL 05/25/2025 7:47 AM EDT [facility] eGFR (CKD-EPIcr 2020) 60 >=60 mL/min/1.7 3 m2 05/25/2025 7:47 AM EDT [facility] Comment:Estimated GFR was ca lculated using the CKD-EPIcr (2020) equation refit without race. The equation is recommended by the [employer] Kid[employer] - [place] [employer] Nephrology Task Force. Blood VENOUS BLOOD / Unknown Venipuncture / Unknown 05/25/2025 6:50 AM EDT 05/25/2025 7:10 AM EDT us Stephen Pickard MD CHEMISTRY ORDERABLES Final R esult [facility], [facility] [address] [facility], [place] [address] * ECG AND WAVEFORMS - TELEMETRY (05/24/2025 7:00 PM EDT) Pathologist [facility] ECG INTERPRET Atrial Fib [facility] 05/24/2025 7:00 PM EDT Narrative [facility] - 05/24/2025 7:43 PM EDT ROUTINE/MS QRS 0.10 See Clinical Report link for waveform capture us Unknown Provider POINT OF CARE CARDIOLOGY Final Result Performing Organization Address City/[facility]/ZIP Co de Phone Number [facility] 1 [place] [address] * (ABNORMAL) CBC (05/24/2025 1:55 PM EDT) WBC 3.8 3.7 - 10.3 x10(3)/mcL 05/24/2025 2:11 PM EDT [facility] RBC 2.83(L) 3.90 - 5.20 x10(6)/mcL 05/24/2025 2:11 PM EDT [facility] Hgb 9.9(L) 11.2 - 15.7 g/dL 05/24/2025 2:11 PM EDT [facility] Hct 30.0(L) 34.0 - 45.0 % 05/24/2025 2:11 PM EDT [facility] MCV 106.0(H) 80.0 - 100.0 fL 05/24/2025 2:11 PM EDT [facility] MCH 35.0(H) 26.0 - 34.0 pg 05/24/2025 2:11 PM EDT [facility] MCHC 33.0 30.7 - 35.5 g/dL 05/24/2025 2:11 PM EDT [facility] RDW 21.9(H) <=14.9 % 05/24/2025 2:11 PM EDT [facility] Platelet 64(L) 155 - 369 x10(3)/mcL 05/24/2025 2:11 PM EDT [facility] MPV 12.1 8.8 - 12.5 fL 05/24/2025 2:11 PM EDT [facility] Blood VENOUS BLOOD / Unknown Venipuncture / Unknown 05/24/2025 1:55 PM EDT 05/24/2025 2:01 PM EDT us Lawrence Wolf MD HEMATOLOGY ORDERABLES Final Result [facility] [address] [facility], [place] [address] * (ABNORMAL) GLUCOSE METER POC (05/24/2025 11:39 AM EDT) [facility] Glucose Meter POC 144(H) 70 - 100 mg/dL 05/24/2025 11:41 AM EDT [facility] Sample Type Capillary 05/24/2025 11:41 AM EDT [facility] Patient Status Non-Critical Patient 05/24/2025 11:41 AM EDT [facility] Blood BLOOD SPECIMEN / Unknown 05/24/2025 11:39 AM EDT 05/24/2025 11:41 AM EDT us Stephen Pickard MD POINT OF CARE TEST ORDERABLE S Final Result Performing Organization Address City/[facility]/ZIP Co de Phone Number [facility] 1 [place] [address] * TRANSFUSE RED BLOOD CELLS (05/24/2025 10:43 AM EDT) Result [facility] Lawrence Wolf MD NURSING TREATMENT ORDERABLE S - BLOOD ADMIN Edited Result - Final * TRANSFUSE RED BLOOD CELLS (05/24/2025 10:43 AM EDT) Lawrence Wolf MD NURSING TREATMENT ORDERABLE S - BLOOD ADMIN Edited Result - Final * TRANSFUSE RED BLOOD CELLS (05/24/2025 9:46 AM EDT) Result [facility] Lawrence Wolf MD NURSING TREATMENT ORDERABLE S - BLOOD ADMIN Edited Result - Final * TRANSFUSE RED BLOOD CELLS (05/24/2025 9:46 AM EDT) Result [facility] Lawrence Wolf MD NURSING TREATMENT ORDERABLE S - BLOOD ADMIN Edited Result - Final * PATHOLOGY TISSUE REQUEST (05/24/2025 8:41 AM EDT) CASE REPORT Surgical Pathology Case: [id number] Authorizing Provider: Lawrence Wolf MD Collected: 05/24/2025 0841 Ordering Location: ED SURGERY Received: 05/24/2025 1101 Pathologist: Addie Barakat MD Specimen: Leg, Left, Left Leg and knee 05/29/2025 3:42 PM EDT [facility] FINAL DIAGNOSIS Left leg and knee, [id number] amputation: - Ulcer and soft tissue necrosis at previous amputation site. - Atherosclerosis. - Focal areas of necrosis and acute inflammation consistent with acute osteomyelitis. - Skin and soft tissue margins are viable. - Bone margin is negative for acute osteomyelitis. 05/29/2025 3:42 PM EDT [facility] at 1542 EDT GROSS DESCRIPTION A. Received in formalin, in a container, labeled with the patient's name, hospital number, and Left Leg and knee , is a 14.8 cm in length x 10.4 cm wide x 11.8 cm anterior to posterior above the knee amputation from proximal margin to knee continuous with a 45.2 cm in length x 8.3 cm wide x 10.3 cm anterior to posterior leg continuous with a 16.7 cm in length x 7.2 cm wide x 7.2 cm dorsal to plantar foot with a previous amputation site present along the distal foot with no digits identified. A blue-green metallic device is present within the marrow of the femur. The specimen is inked as follows: Blue - skin and soft tissue margins; Green - femoral vessels; [place]uen[place] - anterior tibial vessels; Black - posterior tibial vessels. The previous amputation site has an 11.9 x 3.4 cm partially crusted partially ulcerated red-brown hemorrhagic lesion with blue sutures present that is 42.3 cm from the closest skin and soft tissue margin. The underlying bone is michael, trabeculated, and soft. The surrounding skin is purple and discolored and the underlying soft tissue is red-brown, hemorrhagic with liquefactive areas. The vessels are diffusely calcified and up to 95% stenotic. Armature Rewinder sections are submitted as follows: A1: Bone marrow from margin, in a biopsy bag and following Decal Stat A2: Skin and soft tissue margin, perpendicularly sectioned A3: Lesion to underlying bone, following Decal Stat A4: Mid cross sections of vessels with stenotic and calcified areas, following Decal Stat Kesha Cerda MS, ABIGAIL (ASCP) 05/27/2025 05/29/2025 3:42 PM EDT [facility] MICROSCOPIC DESCRIPTION The microscopic examination may have been rendered in whole, or in part, by analyzing high-resolution digital images (whole slide images) on the FIA Formula E Digital Pathology platform validated at [facility]. 05/29/2025 3:42 PM EDT [facility] EMBEDDED IMAGES 05/29/2025 3:42 PM EDT [facility] Tissue STRUCTURE OF LEFT LOWER LEG / Unknown 05/24/2025 8:41 AM EDT 05/24/2025 11:01 AM EDT us Lawrence Wolf MD PATHOLOGY ORDERABLES Final Result [facility] [address] [place] [address] [address] * US ANES GUIDANCE FOR NERVE BLOCK (05/24/2025 7:18 AM EDT) Narrative [facility]user, Audit - 05/24/2025 7:18 AM EDT Ultrasound guided nerve block performed by Anesthesiologist The study image(s) are for reference only and will not be interpreted by a Radiologist. Refer to the Anesthesia procedure note for image description and procedure details. us Rosanna Gallagher MD IMG US ORDERABLES Final Re sult * ECG AND WAVEFORMS - TELEMETRY (05/24/2025 7:05 AM EDT) ECG INTERPRET Atrial Fib [facility] 05/24/2025 7:05 AM EDT Narrative [facility] - 05/24/2025 7:52 AM EDT PVCS-ROUTINE/PB QRS 0.09 See Clinical Report link for waveform capture us Unknown Provider POINT OF CARE CARDIOLOGY Final Result Performing Organization Address [facility] Co de Phone Number [facility] [address] [place] [address] * (ABNORMAL) GLUCOSE METER POC (05/24/2025 6:32 AM EDT) Glucose Meter POC 104(H) 70 - 100 mg/dL 05/24/2025 6:34 AM EDT [facility] Sample Type Capillary 05/24/2025 6:34 AM EDT [facility] Patient Status Non-Critical Patient 05/24/2025 6:34 AM EDT [facility] Blood BLOOD SPECIMEN / Unknown 05/24/2025 6:32 AM EDT 05/24/2025 6:34 AM EDT Stephen Pickard MD POINT OF CARE TEST ORDERABLE S Final Result Performing Organization Address [facility]/ZIP Co de Phone Number [facility] [address] [place] [phone] * ECG AND WAVEFORMS - TELEMETRY (05/23/2025 7:24 PM EDT) ECG INTERPRET Atrial Fib [facility] 05/23/2025 7:24 PM EDT Narrative [facility] - 05/23/2025 7:31 PM EDT (AM) ROUTINE QRS 0.12 See Clinical Report link for waveform capture us Unknown Provider POINT OF CARE CARDIOLOGY Final Result [facility] [address] [place] [id number] * (ABNORMAL) URINE CULTURE (NO STAIN) (05/23/2025 3:31 PM EDT) Culture Positive Growth(A) 05/26/2025 9:43 AM EDT [facility] Culture >100,000 CFU/mL Proteus mirabilis SUSCEPTIB ILITY RESULT 05/26/2025 9:43 AM EDT [facility] Comment: Confirmed positive for ESBL (extended spectrum Beta lactamase) production. If isolate susceptible and patient is clinically stable, sulfamethoxazole-trimethoprim is the drug of choice. Fluoroquinolones may also be considered. Nitrofurantoin may be associated with increased risk of treatment failure. Culture 50,000 CFU/mL Escherichia coli SUSCEPTIB ILITY RESULT 05/26/2025 9:43 AM EDT [facility] Urine STRUCTURE OF URINARY TRACT PROPER / Unknown 05/23/2025 3:31 PM EDT 05/23/2025 3:41 PM EDT Narrative Organism Antibiotic Method Susceptibility Proteus mirabilis Amikacin SUSCEPTIBILITY RESULT Proteus mirabilis Amoxicillin/Clavulanate SUSCEPTIBILI TY RESULT Proteus mirabilis Ampicillin SUSCEPTIBILITY RESULT >16 ug/mL: Resistant Proteus mirabilis Ampicillin/Sulbactam SUSCEPTIBILITY RESULT Proteus mirabilis Aztreonam SUSCEPTIBILITY RESULT 8 ug/mL: Resistant Proteus mirabilis Cefazolin SUSCEPTIBILITY RESULT >16 ug/mL: Resistant Proteus mirabilis Cefepime SUSCEPTIBILITY RESULT >16 ug/mL: Resistant Proteus mirabilis Cefotaxime SUSCEPTIBILITY RESULT >32 ug/mL: Resistant Proteus mirabilis Cefoxitin SUSCEPTIBILITY RESULT <=8 ug/mL: Susceptible Proteus mirabilis Ceftazidime SUSCEPTIBILITY RESULT <=1 ug/mL: Resistant Proteus mirabilis Ceftazidime/Avibactam SUSCEPTIBILITY RESULT Proteus mirabilis Ceftolozane/Tazobactam SUSCEPTIBILIT Y RESULT Proteus mirabilis Ceftriaxone SUSCEPTIBILITY RESULT >32 ug/mL: Resistant Proteus mirabilis Cefuroxime SUSCEPTIBILITY RESULT >16 ug/mL: Resistant Proteus mirabilis Ciprofloxacin SUSCEPTIBILITY RESULT >2 ug/mL: Resistant Proteus mirabilis Ertapenem SUSCEPTIBILITY RESULT <=0.5 ug/mL: Susceptible Proteus mirabilis Gentamicin SUSCEPTIBILITY RESULT <=2 ug/mL: Susceptible Proteus mirabilis Imipenem SUSCEPTIBILITY RESULT Proteus mirabilis Levofloxacin SUSCEPTIBILITY RESULT >4 ug/mL: Resistant Proteus mirabilis Meropenem SUSCEPTIBILITY RESULT <=1 ug/mL: Susceptible Proteus mirabilis Meropenem/Vaborbactam SUSCEPTIBILITY RESULT Proteus mirabilis Minocycline SUSCEPTIBILITY RESULT Proteus mirabilis Moxifloxacin SUSCEPTIBILITY RESULT Proteus mirabilis Nitrofurantoin SUSCEPTIBILITY RESULT Proteus mirabilis Piperacillin/Tazobactam SUSCEPTIBILI TY RESULT <=8 ug/mL: Susceptible Proteus mirabilis Tetracycline SUSCEPTIBILITY RESULT Proteus mirabilis Tigecycline SUSCEPTIBILITY RESULT Proteus mirabilis Tobramycin SUSCEPTIBILITY RESULT <=2 ug/mL: Susceptible Proteus mirabilis Trimethoprim/Sulfame tho xazole SUSCEPTIBILITY RESULT >2/38 ug/mL: Resistant Escherichia coli Amikacin SUSCEPTIBILITY RESULT Escherichia coli Amoxicillin/Clavulanate SUSCEPTIBILIT Y RESULT <=8/4 ug/mL: Susceptible Escherichia coli Ampicillin SUSCEPTIBILITY RESULT >16 ug/mL: Resistant Escherichia coli Ampicillin/Sulbactam SUSCEPTIBILITY R ESULT 16/8 ug/mL: Intermediate Escherichia coli Aztreonam SUSCEPTIBILITY RESULT <=4 ug/mL: Susceptible Escherichia coli Cefazolin SUSCEPTIBILITY RESULT <=2 ug/mL: Susceptible Escherichia coli Cefepime SUSCEPTIBILITY RESULT Escherichia coli Cefotaxime SUSCEPTIBILITY RESULT Escherichia coli Cefoxitin SUSCEPTIBILITY RESULT <=8 ug/mL: Susceptible Escherichia coli Ceftazidime SUSCEPTIBILITY RESULT Escherichia coli Ceftazidime/Avibactam SUSCEPTIBILITY RESULT Escherichia coli Ceftolozane/Tazobactam SUSCEPTIBILITY RESULT Escherichia coli Ceftriaxone SUSCEPTIBILITY RESULT Escherichia coli Cefuroxime SUSCEPTIBILITY RESULT Escherichia coli Ciprofloxacin SUSCEPTIBILITY RESULT <=0.25 ug/mL: Susceptible Escherichia coli Ertapenem SUSCEPTIBILITY RESULT <=0.5 ug/mL: Susceptible Escherichia coli Gentamicin SUSCEPTIBILITY RESULT <=2 ug/mL: Susceptible Escherichia coli Imipenem SUSCEPTIBILITY RESULT <=1 ug/mL: Susceptible Escherichia coli Levofloxacin SUSCEPTIBILITY RESULT <=0.5 ug/mL: Susceptible Escherichia coli Meropenem SUSCEPTIBILITY RESULT <=1 ug/mL: Susceptible Escherichia coli Meropenem/Vaborbactam SUSCEPTIBILITY RESULT Escherichia coli Minocycline SUSCEPTIBILITY RESULT Escherichia coli Moxifloxacin SUSCEPTIBILITY RESULT Escherichia coli Nitrofurantoin SUSCEPTIBILITY RESULT <=32 ug/mL: Susceptible Escherichia coli Piperacillin/Tazobactam SUSCEPTIBILIT Y RESULT <=8 ug/mL: Susceptible Escherichia coli Tetracycline SUSCEPTIBILITY RESULT >8 ug/mL: Resistant Escherichia coli Tigecycline SUSCEPTIBILITY RESULT Escherichia coli Tobramycin SUSCEPTIBILITY RESULT <=2 ug/mL: Susceptible Escherichia coli Trimethoprim/Sulfame tho xazole SUSCEPTIBILITY RESULT >2/38 ug/mL: Resistant Stephen Pickard MD MICROBIOLOGY - GENERAL ORDER CELESTE Final Result Performing Organization Address [facility] Co de Phone Number [facility], [address], [place] [address] * EXTRA HUITRON URINE CX (05/23/2025 3:31 PM EDT) Urine STRUCTURE OF URINARY TRACT PROPER / Unknown 05/23/2025 3:31 PM EDT 05/23/2025 3:36 PM EDT Stephen Pickard MD MICROBIOLOGY - GENERAL ORDER CELESTE Final Result Performing Organization Address [facility] [place] [address] * (ABNORMAL) URINALYSIS REFLEX (05/23/2025 3:31 PM EDT) UA Color Yellow 05/23/2025 3:41 PM EDT [facility] UA Appear Turbid(A) Clear 05/23/2025 3:41 PM EDT [facility] UA Glucose Negative Negative mg/dL 05/23/2025 3:41 PM EDT [facility] UA Ketones Negative Negative mg/dL 05/23/2025 3:41 PM EDT [facility] UA Blood 2+ (0.2 - 0.5 mg/dL)(A) Negative 05/23/2025 3:41 PM EDT [facility] UA pH 6.5 5.0 - 8.0 pH 05/23/2025 3:41 PM EDT [facility] UA Protein 2+ (100-200 mg/dL)(A) Negative mg/dL 05/23/2025 3:41 PM EDT [facility] UA Urobilinogen Normal <=1 mg/dL 3:41 PM EDT [facility] UA Bili Negative Negative 05/23/2025 3:41 PM EDT [facility], [facility] UA Nitrite Positive(A) Negative 05/23/2025 3:41 PM EDT [facility] UA Leuk Est 4+ (500 Ion/mcl)(A) Negative 05/23/2025 3:41 PM EDT [facility] UA Spec Grav 1.018 1.001 - 1.035 no units 05/23/2025 3:41 PM EDT [facility] Comment:Reference range helga d for random specimens only. UA WBC >182(H) 0 - 4 /HPF 05/23/2025 3:41 PM EDT [facility] UA RBC 22(H) 0 - 3 /HPF 05/23/2025 3:41 PM EDT [facility] UA Mucus Trace /LPF 05/23/2025 3:41 PM EDT [facility] UA Bacteria Trace(A) Negative /HPF 05/23/2025 3:41 PM EDT [facility] Urine STRUCTURE OF URINARY TRACT PROPER / Unknown 05/23/2025 3:31 PM EDT 05/23/2025 3:36 PM EDT us Stephen Pickard MD URINE ORDERABLES Final Resul t [facility], [facility] [address] [facility] , [address] [place] [id number] * RED BLOOD CELLS REQUEST (05/23/2025 10:33 AM EDT) Product Code [id number] [facility] B[facility]OD BANK Unit Number [id number] [facility]OD [facility] Crossmatch Interp Compatible [facility] Dispense Status RETURNED [facility] Blood Expiration Date [id number] [facility] B[facility] ISBT 128 Type 6200 [facility] BLOOD BANK Blood Unit Volume 300 ml [facility] BA CODING SYSTEM [id number] [facility] Blood Type (Unit) A POS [facility] Blood 05/23/2025 10:3 3 AM EDT 05/23/2025 10:37 AM EDT us Luis Manuel Mays MD BLOOD PRODUCT ORDERS Final Re sult [facility] [place] [address] * RED BLOOD CELLS REQUEST (05/23/2025 10:33 AM EDT) Product Code [id number] [facility] BLOOD BANK Unit Number [id number] [facility] BLOOD [facility]ANK Crossmatch Interp Compatible [facility]LO[facility] B[facility] Dispense Status TRANSFUSED [facility] BLOOD [facility] Blood Expiration Date [id number] [facility] BLOOD BANK ISBT 128 Type 6200 [facility] BLOOD BANK Blood Unit Volume 300 ml [facility] BLOOD [facility] BA CODING SYSTEM [id number] [facility] BLOOD [facility] Blood Type (Unit) A POS [facility] Blood 05/23/2025 10:3 3 AM EDT 05/23/2025 10:37 AM EDT us Lawrence Wolf MD BLOOD PRODUCT ORDERS Final Result [facility] BLOOD [address] [address] * RED BLOOD CELLS REQUEST (05/23/2025 10:33 AM EDT) Product Code [id number] [facility] BLOOD BANK Unit Number [id number] [facility] BLOOD BANK Crossmatch Interp Compatible [facility] BLOOD BANK Dispense Status TRANSFUSED [facility]OD [facility] Blood Expiration Date [id number] [facility] BLOOD BANK ISBT 128 Type 6200 [facility] BLOOD [facility] Blood Unit Volume 300 ml [facility] BLOOD [facility] BA CODING SYSTEM [id number] [facility] BLOOD [facility] Blood Type (Unit) A POS [facility] Blood 05/23/2025 10:3 3 AM EDT 05/23/2025 10:37 AM EDT us Lawrence Wolf MD BLOOD PRODUCT ORDERS Final Result [facility] [place] [address] * BB HISTORY CHECK (05/23/2025 10:33 AM EDT) BB HISTORY CHECK (1) Previous History OK 05/23/2025 10:52 AM EDT [facility] Blood VENOUS BLOOD / Unknown Venipuncture / Unknown 05/23/2025 10:33 AM EDT 05/23/2025 10:37 AM EDT Sheryl Horton [employer] BLOOD BANK ORDERABLES Final Re sult Performing Organization Address [facility] [place] [address] * ANTIBODY SCREEN IGG (05/23/2025 10:33 AM EDT) ABSC IgG Int Negative 05/23/2025 11:27 AM EDT [facility] Blood VENOUS BLOOD / Unknown Venipuncture / Unknown 05/23/2025 10:33 AM EDT 05/23/2025 10:37 AM EDT Sheryl Horton COIN COLLECTOR BLOOD BANK ORDERABLES Final Re sult Performing Organization Address City/[facility]/ZIP Co de Phone Number [facility]OD [place] [phone] * ABORH (05/23/2025 10:33 AM EDT) Pathologist [facility] ABORH Int A POS 05/23/2025 10:59 AM EDT [facility] Blood VENOUS BLOOD / Unknown Venipuncture / Unknown 05/23/2025 10:33 AM EDT 05/23/2025 10:37 AM EDT Sheryl Horton COIN COLLECTOR BLOOD BANK ORDERABLES Final Re sult [facility] [address] [place] [address] * ECG AND WAVEFORMS - TELEMETRY (05/23/2025 7:30 AM EDT) [facility] ECG INTERPRET Atrial Fib [facility] 05/23/2025 7:30 AM EDT Narrative [facility] - 05/23/2025 7:52 AM EDT (DT)ROUTINE QRS 0.09 See Clinical Report link for waveform capture Unknown Provider POINT OF CARE CARDIOLOGY Final Result [facility] [address] [place] [address] * (ABNORMAL) CBC (05/23/2025 7:03 AM EDT) [facility] WBC 2.9(L) 3.7 - 10.3 x10(3)/mcL 05/23/2025 7:37 AM EDT [facility] RBC 1.99(L) 3.90 - 5.20 x10(6)/mcL 05/23/2025 7:37 AM EDT [facility] Hgb 7.5(L) 11.2 - 15.7 g/dL 05/23/2025 7:37 AM EDT [facility] Hct 22.9(L) 34.0 - 45.0 % 05/23/2025 7:37 AM EDT [facility] MCV 115.1(H) 80.0 - 100.0 fL 05/23/2025 7:37 AM EDT [facility] MCH 37.7(H) 26.0 - 34.0 pg 05/23/2025 7:37 AM EDT [facility] MCHC 32.8 30.7 - 35.5 g/dL 05/23/2025 7:37 AM EDT [facility], [facility] RDW 15.8(H) <=14.9 % 05/23/2025 7:37 AM EDT [facility], [facility] Platelet 79(L) 155 - 369 x10(3)/mcL 05/23/2025 7:37 AM EDT [facility], [facility] MPV 12.3 8.8 - 12.5 fL 05/23/2025 7:37 AM EDT [facility] [employer] [facility], [facility] Blood VENOUS BLOOD / Unknown Venipuncture / Unknown 05/23/2025 7:03 AM EDT 05/23/2025 7:27 AM EDT Carlos Manuel Landaverde II, MD HEMATOLOGY ORDERABLES Fin al Result [facility], [facility] [address] [facility], [address] [place] [phone] * ECG AND WAVEFORMS - TELEMETRY (05/22/2025 7:59 PM EDT) ECG INTERPRET Atrial Flutter [facility] Comment:with PVCs 05/22/2025 7:59 PM EDT Narrative [facility] - 05/22/2025 8:15 PM EDT PVC, (AM) ROUTINE QRS 0.10 See Clinical Report link for waveform capture us Unknown Provider POINT OF CARE CARDIOLOGY Final Result [facility] [address] [place] [address] * ECG AND WAVEFORMS - TELEMETRY (05/22/2025 7:31 AM EDT) ECG INTERPRET Atrial Fib [facility] 05/22/2025 7:31 AM EDT Narrative [facility] - 05/22/2025 9:30 AM EDT (DT)ROUTINE QRS 0.08 See Clinical Report link for waveform capture us Unknown Provider POINT OF CARE CARDIOLOGY Final Result [facility] [address] [place] [id number] * FIBRINOGEN (05/22/2025 6:42 AM EDT) Fibrinogen 241 196 - 444 mg/dL 05/22/2025 7:27 AM EDT [facility] VENOUS BLOOD / Unknown Venipuncture / Unknown 05/22/2025 6:42 AM EDT 05/22/2025 6:58 AM EDT tSephen Pickard MD HEMATOLOGY ORDERABLES Final Result Performing Organization Address [facility] Co de Phone Number [facility] [address] [place] [address] , [place] [address] * (ABNORMAL) PT / INR (05/22/2025 6:42 AM EDT) PT 15.7(H) 10.5 - 13.6 second(s) 05/22/2025 7:27 AM EDT [facility] INR 1.36(H) 0.91 - 1.18 (ratio) 05/22/2025 7:27 AM EDT [facility] Comment: Level of Therapy Indications Target INR Range Standard Dose Treatment and prophylaxis of venous 2.0 - 3.0 thrombosis, pulmonary embolism High Dose High risk patients with mechanical 2.5 - 3.5 heart valves Blood VENOUS BLOOD / Unknown Venipuncture / Unknown 05/22/2025 6:42 AM EDT 05/22/2025 6:58 AM EDT Stephen Pickard MD HEMATOLOGY ORDERABLES Final Result Performing Organization Address City/[facility] Co de Phone Number [facility] [address] [place] [address] , [place] [address] * MAGNESIUM LEVEL (05/22/2025 6:42 AM EDT) Pathologist [facility] Magnesium 1.9 1.6 - 2.4 mg/dL 05/22/2025 7:32 AM EDT [facility] Blood VENOUS BLOOD / Unknown Venipuncture / Unknown 05/22/2025 6:42 AM EDT 05/22/2025 6:58 AM EDT Carlos Manuel Landaverde II, MD CHEMISTRY ORDERABLES Mita mills Result [facility] [address] [facility] , [place] [address] * (ABNORMAL) CBC (05/22/2025 6:42 AM EDT) [facility] WBC 3.1(L) 3.7 - 10.3 x10(3)/mcL 05/22/2025 7:13 AM EDT [facility] RBC 2.04(L) 3.90 - 5.20 x10(6)/mcL 05/22/2025 7:13 AM EDT [facility] Hgb 7.6(L) 11.2 - 15.7 g/dL 05/22/2025 7:13 AM EDT [facility] Hct 24.0(L) 34.0 - 45.0 % 05/22/2025 7:13 AM EDT [facility] MCV 117.6(H) 80.0 - 100.0 fL 05/22/2025 7:13 AM EDT [facility] MCH 37.3(H) 26.0 - 34.0 pg 05/22/2025 7:13 AM EDT [facility] MCHC 31.7 30.7 - 35.5 g/dL 05/22/2025 7:13 AM EDT [facility] RDW 15.7(H) <=14.9 % 05/22/2025 7:13 AM EDT [facility] Platelet 78(L) 155 - 369 x10(3)/mcL 05/22/2025 7:13 AM EDT [facility] MPV 12.7(H) 8.8 - 12.5 fL 05/22/2025 7:13 AM EDT [facility] [facility] Blood VENOUS BLOOD / Unknown Venipuncture / Unknown 05/22/2025 6:42 AM EDT 05/22/2025 6:58 AM EDT us Carlos Manuel Landaverde II, MD HEMATOLOGY ORDERABLES Fin al Result [facility] [address] [facility] , [place] [address] * (ABNORMAL) BASIC METABOLIC PANEL (05/22/2025 6:42 AM EDT) Sodium 138 136 - 145 mmol/L 05/22/2025 7:32 AM EDT [facility] Potassium 4.1 3.5 - 5.0 mmol/L 05/22/2025 7:32 AM EDT [facility] Chloride 108(H) 98 - 107 mmol/L 05/22/2025 7:32 AM EDT [facility] Total CO2 23 22 - 29 mmol/L 05/22/2025 7:32 AM EDT [facility] Anion Gap 7 7 - 16 mmol/L 05/22/2025 7:32 AM EDT [facility] Calcium 8.4(L) 8.8 - 10.4 mg/dL 05/22/2025 7:32 AM EDT [facility] Glucose Lvl 111(H) 70 - 99 mg/dL 05/22/2025 7:32 AM EDT [facility] BUN 23 8 - 23 mg/dL 05/22/2025 7:32 AM EDT [facility] Creatinine 0.99 0.51 - 1.30 mg/dL 05/22/2025 7:32 AM EDT [facility] eGFR (CKD-EPIcr 2020) 56(L) >=60 mL/min/1.7 3 m2 05/22/2025 7:32 AM EDT [facility] Comment:Estimated GFR was ca lculated using the CKD-EPIcr (2020) equation refit without race. The equation is recommended by the National [employer] - [place] [employer]ph[employer] Task Force. Blood VENOUS BLOOD / Unknown Venipuncture / Unknown 05/22/2025 6:42 AM EDT 05/22/2025 6:58 AM EDT Carlos Manuel Landaverde II, MD CHEMISTRY ORDERABLES Mita l Result Performing Organization Address [facility]/ZIP Co de Phone Number [facility] [employer], [facility] [address] [facility], [place] [address] * ECG AND WAVEFORMS - TELEMETRY (05/21/2025 7:40 PM EDT) [facility] ECG INTERPRET Atrial Fib [facility] 05/21/2025 7:40 PM EDT Narrative [facility] - 05/21/2025 7:46 PM EDT w/PVCs ROUTINE/AJ QRS 0.10 QT 0.36 See Clinical Report link for waveform capture us Unknown Provider POINT OF CARE CARDIOLOGY Final Result Performing Organization Address City/[facility]/ZIP Co de Phone Number [facility] [address] [place] [phone] * (ABNORMAL) CBC WITH DIFF (05/21/2025 7:18 AM EDT) [facility] WBC 3.0(L) 3.7 - 10.3 x10(3)/mcL 05/21/2025 1:43 PM EDT [facility] RBC 1.95(L) 3.90 - 5.20 x10(6)/mcL 05/21/2025 1:43 PM EDT [facility] Hgb 7.3(L) 11.2 - 15.7 g/dL 05/21/2025 1:43 PM EDT [facility] Hct 22.9(L) 34.0 - 45.0 % 05/21/2025 1:43 PM EDT [facility] MCV 117.4(H) 80.0 - 100.0 fL 05/21/2025 1:43 PM EDT [facility] MCH 37.4(H) 26.0 - 34.0 pg 05/21/2025 1:43 PM EDT [facility] MCHC 31.9 30.7 - 35.5 g/dL 05/21/2025 1:43 PM EDT [facility] RDW 16.0(H) <=14.9 % 05/21/2025 1:43 PM EDT [facility] Platelet 77(L) 155 - 369 x10(3)/mcL 05/21/2025 1:43 PM EDT [facility] MPV 12.7(H) 8.8 - 12.5 fL 05/21/2025 1:43 PM EDT [facility] Neut Percent 53.3 % 05/21/2025 1:43 PM EDT [facility] Comment:Neutrophils equals s egs plus bands Imm Gran% 0.3 % 05/21/2025 1:43 PM EDT [facility] Comment:Automated count of m etamyelocytes, myelocytes and promyelocytes. Lymph Percent 37.2 % 05/21/2025 1:43 PM EDT [facility] Carver Percent 8.9 % 05/21/2025 1:43 PM EDT [facility] Eos Percent 0.0 % 05/21/2025 1:43 PM EDT [facility] Baso Percent 0.3 % 05/21/2025 1:43 PM EDT [facility] Neut # 1.6 1.6 - 6.1 x10(3)/mcL 05/21/2025 1:43 PM EDT [facility] Comment:Neutrophils equals s egs plus bands IMMGRAN# 0.0 0.0 - 0.1 x10(3)/mcL 05/21/2025 1:43 PM EDT [facility] Comment:Automated count of m etamyelocytes, myelocytes and promyelocytes. An absolute IG <0.1 is reported as 0.0. Lymph # 1.1(L) 1.2 - 3.9 x10(3)/mcL 05/21/2025 1:43 PM EDT [facility] Carver # 0.3 0.3 - 0.9 x10(3)/mcL 05/21/2025 1:43 PM EDT [facility] Eos# 0.0 0.0 - 0.5 x10(3)/mcL 05/21/2025 1:43 PM EDT [facility] [employer], [facility] Baso # 0.0 0.0 - 0.1 x10(3)/mcL 05/21/2025 1:43 PM EDT [facility] [employer], [facility] Blood VENOUS BLOOD / Unknown Venipuncture / Unknown 05/21/2025 7:18 AM EDT 05/21/2025 7:22 AM EDT us Stephen Pickard MD HEMATOLOGY ORDERABLES Final Result Performing Organization Address City/[facility]/ZIP Co de Phone Number [facility] [employer] [address] [facility], [place] [address] * PERIPHERAL SMEAR/PATH REVIEW (05/21/2025 7:18 AM EDT) Pathologist Review The smear shows a leukopenia with lymphopenia. No blasts are seen. The granulocytes are predominantly mature without overt dysplastic features. There are decreased red cell numbers with a marked macrocytic normochromic anemia noted. There are ovalocytes and occasional tear drop cells noted. There are no increased of schistocytes seen No polychromasia or nucleated red cells are seen. Platelet numbers are moderately decreased with no clusters or clumps seen. A rare large platelets is noted. Patient with pancytopenia initially admitted to hospital due to wound dehiscence and concern for wound infection. Patient with pancytopenia. Etiologies can include infection, autoimmune disorders, vitamin deficiencies, drugs, alcohol abuse, liver disorders, splenic sequestration, underlying bone marrow disorders such as MDS or infiltrating carcinoma and other. Correlate with the patient's underlying clinical history and additional work up. Sujata Benitez MD 05/22/2025 5:33 PM EDT [facility] Blood VENOUS BLOOD / Unknown Venipuncture / Unknown 05/21/2025 7:18 AM EDT 05/21/2025 7:22 AM EDT us Stephen Pickard MD HEMATOLOGY ORDERABLES Final Result Performing Organization Address City/[facility]/ZIP Co de Phone Number [facility] [address] [place] [address] * (ABNORMAL) IRON+TIBC (05/21/2025 7:18 AM EDT) Iron 41 30 - 160 mcg/dL 05/21/2025 7:57 AM EDT [facility] Transferrin 182(L) 200 - 360 mg/dL 05/21/2025 7:57 AM EDT [facility], [facility] Transferrin Saturation 16(L) 20 - 50 % 05/21/2025 7:57 AM EDT [facility] [employer], [facility] TIBC 255 250 - 400 mcg/dL 05/21/2025 7:57 AM EDT [facility] [employer], [facility] Blood VENOUS BLOOD / Unknown Venipuncture / Unknown 05/21/2025 7:18 AM EDT 05/21/2025 7:22 AM EDT Carlos Manuel Landaverde II, MD CHEMISTRY ORDERABLES Mita l Result Performing Organization Address [facility] de Phone Number [facility] [employer] , [place] [phone] * VITAMIN B12/ FOLIC ACID (05/21/2025 7:18 AM EDT) Vitamin B12 806 232 - 1,245 pg/mL 05/21/2025 8:20 AM EDT [facility] [employer], [facility] Folate >16.00 >=4.80 ng/mL 05/21/2025 8:20 AM EDT [facility] [employer], [facility] Blood VENOUS BLOOD / Unknown Venipuncture / Unknown 05/21/2025 7:18 AM EDT 05/21/2025 7:22 AM EDT Narrative [facility] [employer], [facility] - 05/21/2025 8:20 AM EDT Ingestion of angie doses of biotin (>5 mg/day) taken within 8 hours of drawing blood sample can interfere with this immunoassay test. Carlos Manuel Landaverde II, MD CHEMISTRY ORDERABLES Mita l Result Performing Organization Address [facility] Co de Phone Number [facility] [employer], [address] , [place] [address] * MAGNESIUM LEVEL (05/21/2025 7:18 AM EDT) Magnesium 1.8 1.6 - 2.4 mg/dL 05/21/2025 7:57 AM EDT [facility] Blood VENOUS BLOOD / Unknown Venipuncture / Unknown 05/21/2025 7:18 AM EDT 05/21/2025 7:22 AM EDT Carlos Manuel Landaverde II, MD CHEMISTRY ORDERABLES Mita mills Result [facility] [address] [facility] , [place] [address] * (ABNORMAL) CBC (05/21/2025 7:18 AM EDT) WBC 3.0(L) 3.7 - 10.3 x10(3)/mcL 05/21/2025 7:36 AM EDT [facility] RBC 1.95(L) 3.90 - 5.20 x10(6)/mcL 05/21/2025 7:36 AM EDT [facility] Hgb 7.3(L) 11.2 - 15.7 g/dL 05/21/2025 7:36 AM EDT [facility] Hct 22.9(L) 34.0 - 45.0 % 05/21/2025 7:36 AM EDT [facility] MCV 117.4(H) 80.0 - 100.0 fL 05/21/2025 7:36 AM EDT [facility] MCH 37.4(H) 26.0 - 34.0 pg 05/21/2025 7:36 AM EDT [facility] MCHC 31.9 30.7 - 35.5 g/dL 05/21/2025 7:36 AM EDT [facility] RDW 16.0(H) <=14.9 % 05/21/2025 7:36 AM EDT [facility] Platelet 77(L) 155 - 369 x10(3)/mcL 05/21/2025 7:36 AM EDT [facility] MPV 12.7(H) 8.8 - 12.5 fL 05/21/2025 7:36 AM EDT [facility] Blood VENOUS BLOOD / Unknown Venipuncture / Unknown 05/21/2025 7:18 AM EDT 05/21/2025 7:22 AM EDT Carlos Manuel Landaverde II, MD HEMATOLOGY ORDERABLES Fin al Result [facility], [facility] [address] [facility] [facility] , [place] [address] * (ABNORMAL) BASIC METABOLIC PANEL (05/21/2025 7:18 AM EDT) Sodium 138 136 - 145 mmol/L 05/21/2025 7:57 AM EDT [facility] Potassium 4.1 3.5 - 5.0 mmol/L 05/21/2025 7:57 AM EDT [facility] Chloride 107 98 - 107 mmol/L 05/21/2025 7:57 AM EDT [facility] Total CO2 20(L) 22 - 29 mmol/L 05/21/2025 7:57 AM EDT [facility] Anion Gap 11 7 - 16 mmol/L 05/21/2025 7:57 AM EDT [facility] Calcium 8.4(L) 8.8 - 10.4 mg/dL 05/21/2025 7:57 AM EDT [facility] Glucose Lvl 107(H) 70 - 99 mg/dL 05/21/2025 7:57 AM EDT [facility] BUN 22 8 - 23 mg/dL 05/21/2025 7:57 AM EDT [facility] Creatinine 0.94 0.51 - 1.30 mg/dL 05/21/2025 7:57 AM EDT [facility], [facility] eGFR (CKD-EPIcr 2020) 59(L) >=60 mL/min/1.7 3 m2 05/21/2025 7:57 AM EDT [facility] Comment:Estimated GFR was ca lculated using the CKD-EPIcr (2020) equation refit without race. The equation is recommended by the National Kidney [employer] - [place] [employer] Neph[employer] Task Force. Blood VENOUS BLOOD / Unknown Venipuncture / Unknown 05/21/2025 7:18 AM EDT 05/21/2025 7:22 AM EDT us Carlos Manuel Landaverde II, MD CHEMISTRY ORDERABLES Mita l Result Performing Organization Address City/[facility] Co de Phone Number [facility] [email or web address] [facility] [address] [facility], [place] [address] * ECG AND WAVEFORMS - TELEMETRY (05/21/2025 7:00 AM EDT) ECG INTERPRET Atrial Fib [facility] 05/21/2025 7:00 AM EDT Narrative [facility] - 05/21/2025 8:43 AM EDT ROUTINE SDP QRS 0.08 QT 0.38 See Clinical Report link for waveform capture us Unknown Provider POINT OF CARE CARDIOLOGY Final Result Performing Organization Address [facility] de Phone Number [facility] 1 [place] [address] * ECG AND WAVEFORMS - TELEMETRY (05/20/2025 7:38 PM EDT) ECG INTERPRET Atrial Fib [facility] 05/20/2025 7:38 PM EDT Narrative [facility] - 05/20/2025 7:43 PM EDT w/PVCs ROUTINE/AJ GA 0.09 QT 0.35 See Clinical Report link for waveform capture Unknown Provider POINT OF CARE CARDIOLOGY Final Result Performing Organization Address [facility] Co de Phone Number [facility] 1 [place] [address] * ECG AND WAVEFORMS - TELEMETRY (05/20/2025 7:00 AM EDT) ECG INTERPRET Atrial Fib [facility] 05/20/2025 7:00 AM EDT Narrative [facility] - 05/20/2025 10:01 AM EDT ROUTINE SDP QRS 0.08 QT 0.46 See Clinical Report link for waveform capture us Unknown Provider POINT OF CARE CARDIOLOGY Final Result Performing Organization Address City/[facility]/ZIP Co de Phone Number [facility] 1 [place] [address] * MAGNESIUM LEVEL (05/20/2025 6:59 AM EDT) Pathologist [facility] Magnesium 2.1 1.6 - 2.4 mg/dL 05/20/2025 7:56 AM EDT [facility] Blood VENOUS BLOOD / Unknown Venipuncture / Unknown 05/20/2025 6:59 AM EDT 05/20/2025 7:23 AM EDT us Carlos Manuel Landaverde II, MD CHEMISTRY ORDERABLES Mita l Result Performing Organization Address City/[facility]/ZIP Co de Phone Number [facility] [address] [facility] [address], [place] [address] * (ABNORMAL) CBC (05/20/2025 6:59 AM EDT) WBC 3.1(L) 3.7 - 10.3 x10(3)/mcL 05/20/2025 7:32 AM EDT [facility] RBC 2.04(L) 3.90 - 5.20 x10(6)/mcL 05/20/2025 7:32 AM EDT [facility] Hgb 7.6(L) 11.2 - 15.7 g/dL 05/20/2025 7:32 AM EDT [facility] Hct 23.4(L) 34.0 - 45.0 % 05/20/2025 7:32 AM EDT [facility] MCV 114.7(H) 80.0 - 100.0 fL 05/20/2025 7:32 AM EDT [facility] MCH 37.3(H) 26.0 - 34.0 pg 05/20/2025 7:32 AM EDT [facility] MCHC 32.5 30.7 - 35.5 g/dL 05/20/2025 7:32 AM EDT [facility] RDW 15.9(H) <=14.9 % 05/20/2025 7:32 AM EDT [facility] Platelet 86(L) 155 - 369 x10(3)/mcL 05/20/2025 7:32 AM EDT [facility] MPV 12.6(H) 8.8 - 12.5 fL 05/20/2025 7:32 AM EDT [facility] Blood VENOUS BLOOD / Unknown Venipuncture / Unknown 05/20/2025 6:59 AM EDT 05/20/2025 7:23 AM EDT Carlos Manuel Landaverde II, MD HEMATOLOGY ORDERABLES Fin al Result [facility] [address] [facility] , [place] [address] * (ABNORMAL) BASIC METABOLIC PANEL (05/20/2025 6:59 AM EDT) Sodium 137 136 - 145 mmol/L 05/20/2025 7:56 AM EDT [facility] Potassium 4.1 3.5 - 5.0 mmol/L 05/20/2025 7:56 AM EDT [facility] Chloride 106 98 - 107 mmol/L 05/20/2025 7:56 AM EDT [facility] Total CO2 19(L) 22 - 29 mmol/L 05/20/2025 7:56 AM EDT [facility] Anion Gap 12 7 - 16 mmol/L 05/20/2025 7:56 AM EDT [facility] Calcium 8.5(L) 8.8 - 10.4 mg/dL 05/20/2025 7:56 AM EDT [facility] Glucose Lvl 110(H) 70 - 99 mg/dL 05/20/2025 7:56 AM EDT [facility] BUN 21 8 - 23 mg/dL 05/20/2025 7:56 AM EDT [facility] Creatinine 0.91 0.51 - 1.30 mg/dL 05/20/2025 7:56 AM EDT [employer] eGFR (CKD-EPIcr 2020) 62 >=60 mL/min/1.7 3 m2 05/20/2025 7:56 AM EDT [facility] [employer] Comment:Estimated GFR was ca lculated using the CKD-EPIcr (2020) equation refit without race. The equation is recommended by the National Kidney Foundation - [place] [employer] Nephrology Task Force. Blood VENOUS BLOOD / Unknown Venipuncture / Unknown 05/20/2025 6:59 AM EDT 05/20/2025 7:23 AM EDT us Carlos Manuel Landaverde II, MD CHEMISTRY ORDERABLES Mita l Result Performing Organization Address City/[facility] Co de Phone Number [facility] [id number] [address], [place] [address] * ECG AND WAVEFORMS - TELEMETRY (05/19/2025 8:00 PM EDT) ECG INTERPRET Atrial Fib [facility] 05/19/2025 8:00 PM EDT Narrative [facility] - 05/19/2025 8:45 PM EDT ROUTINE (MS) QRS 0.11 See Clinical Report link for waveform capture us Unknown Provider POINT OF CARE CARDIOLOGY Final Result Performing Organization Address [facility] Co de Phone Number [facility] 1 [place] [address] * ECG AND WAVEFORMS - TELEMETRY (05/19/2025 8:07 AM EDT) ECG INTERPRET Atrial Fib [facility] 05/19/2025 8:07 AM EDT Narrative [facility] - 05/19/2025 8:09 AM EDT ROUTINE//AC See Clinical Report link for waveform capture us Unknown Provider POINT OF CARE CARDIOLOGY Final Result Performing Organization Address [facility] Co de Phone Number [facility] 1 [place] [phone] * XR ABDOMEN AP (05/19/2025 8:00 AM EDT) Anatomical Region Laterality Modality Abdomen Radio Fluoroscop y 05/19/2025 8:00 AM EDT Impressions 05/19/2025 8:22 AM EDT No acute finding. Moderate amount stool and gas in the colon. - Note: Radiology results need to be interpreted within a comprehensive clinical context. If you have questions about the radiology report, please contact the office of the ordering clinician. Narrative 05/19/2025 8:22 AM EDT CR, ABDOMEN AP, 05/19/2025 8:00 AM CLINICAL HISTORY: -constipation COMPARISON: None. PROCEDURE COMMENTS: AP view(s) of the abdomen per protocol. FINDINGS: Nonspecific, nonobstructive bowel gas pattern. Moderate amount stool and gas in colon. No pathologic calcification. Skeleton grossly intact. Vascular stents overlying the common iliac vessels bilaterally. Procedure Note Marilu Caban MD - 05/19/2025 CR, ABDOMEN AP, 05/19/2025 8:00 AM CLINICAL HISTORY: -constipation COMPARISON: None. PROCEDURE COMMENTS: AP view(s) of the abdomen per protocol. FINDINGS: Nonspecific, nonobstructive bowel gas pattern. Moderate amount stool andgas in colon. No pathologic calcification. Skeleton grossly intact. Vascularstents overlying the common iliac vessels bilaterally. IMPRESSION: No acute finding. Moderate amount stool and gas in the colon. - Note: Radiology results need to be interpreted within a comprehensiveclinical context. If you have questions about the radiology report, please contactthe office of the ordering clinician. us Carlos Manuel Landaverde II, MD IMG DIAGNOSTIC IMAGING OR DERABLES Final Result * ECG AND WAVEFORMS - TELEMETRY (05/18/2025 7:00 PM EDT) ECG INTERPRET Atrial Fib [facility] 05/18/2025 7:00 PM EDT Narrative [facility] - 05/18/2025 7:38 PM EDT PVC - ROUTINE QRS 0.11 See Clinical Report link for waveform capture us Unknown Provider POINT OF CARE CARDIOLOGY Final Result Performing Organization Address City/[facility]/ZIP Co de Phone Number [facility] 1 [place] [address] * ECG AND WAVEFORMS - TELEMETRY (05/18/2025 7:04 AM EDT) Pathologist [facility] ECG INTERPRET Atrial Fib [facility] 05/18/2025 7:04 AM EDT Narrative [facility] - 05/18/2025 7:58 AM EDT ROUTINE-BB See Clinical Report link for waveform capture us Unknown Provider POINT OF CARE CARDIOLOGY Final Result Performing Organization Address [facility] Co de Phone Number [facility] 1 [place] [address] * EXTRA HUITRON URINE CX (05/18/2025 6:43 AM EDT) Urine URINARY BLADDER STRUCTURE / Unknown 05/18/2025 6:43 AM EDT 05/18/2025 6:51 AM EDT us Cara Diallo COIN COLLECTOR MICROBIOLOGY - GENERAL ORDERABLES Final Result Performing Organization Address [facility] Co de Phone Number [facility] [address] [place] [address] * URINALYSIS REFLEX (05/18/2025 6:43 AM EDT) UA Color Yellow 05/18/2025 6:54 AM EDT [facility] UA Appear Clear Clear 05/18/2025 6:54 AM EDT [facility] UA Glucose Negative Negative mg/dL 05/18/2025 6:54 AM EDT [facility] UA Ketones Negative Negative mg/dL 05/18/2025 6:54 AM EDT [facility]A Blood Negative Negative 05/18/2025 6:54 AM EDT [facility] UA pH 6.0 5.0 - 8.0 pH 05/18/2025 6:54 AM EDT [facility] UA Protein Negative Negative mg/dL 05/18/2025 6:54 AM EDT [facility] UA Urobilinogen Normal <=1 mg/dL 6:54 AM EDT [facility], [facility] UA Bili Negative Negative 05/18/2025 6:54 AM EDT [facility] UA Nitrite Negative Negative 05/18/2025 6:54 AM EDT [facility] UA Leuk Est Negative Negative 05/18/2025 6:54 AM EDT [facility] UA Spec Grav 1.013 1.001 - 1.035 no units 05/18/2025 6:54 AM EDT [facility], [facility] Comment:Reference range helga d for random specimens only. Urine URINARY BLADDER STRUCTURE / Unknown 05/18/2025 6:43 AM EDT 05/18/2025 6:51 AM EDT Cara Diallo APRN URINE ORDERABLES Final Result Performing Organization Address [facility]/ZIP Co de Phone Number [address] , [place] [address] * MAGNESIUM LEVEL (05/18/2025 6:28 AM EDT) Magnesium 2.1 1.6 - 2.4 mg/dL 05/18/2025 7:08 AM EDT [facility] Blood VENOUS BLOOD / Unknown Venipuncture / Unknown 05/18/2025 6:28 AM EDT 05/18/2025 6:37 AM EDT Carlos Manuel Landaverde II, MD CHEMISTRY ORDERABLES Mita l Result [facility] [address] [facility] , [place] [address] * (ABNORMAL) CBC (05/18/2025 6:28 AM EDT) WBC 4.8 3.7 - 10.3 x10(3)/mcL 05/18/2025 6:44 AM EDT [facility], [facility] RBC 2.31(L) 3.90 - 5.20 x10(6)/mcL 05/18/2025 6:44 AM EDT [facility] Hgb 8.7(L) 11.2 - 15.7 g/dL 05/18/2025 6:44 AM EDT [facility] Hct 26.4(L) 34.0 - 45.0 % 05/18/2025 6:44 AM EDT [facility] MCV 114.3(H) 80.0 - 100.0 fL 05/18/2025 6:44 AM EDT [facility] MCH 37.7(H) 26.0 - 34.0 pg 05/18/2025 6:44 AM EDT [facility] MCHC 33.0 30.7 - 35.5 g/dL 05/18/2025 6:44 AM EDT [facility] RDW 16.1(H) <=14.9 % 05/18/2025 6:44 AM EDT [facility] Platelet 97(L) 155 - 369 x10(3)/mcL 05/18/2025 6:44 AM EDT [facility] MPV 12.6(H) 8.8 - 12.5 fL 05/18/2025 6:44 AM EDT [facility] Blood VENOUS BLOOD / Unknown Venipuncture / Unknown 05/18/2025 6:28 AM EDT 05/18/2025 6:37 AM EDT us Carlos Manuel Landaverde II, MD HEMATOLOGY ORDERABLES Fin al Result [facility] [address] [facility] , [address] [place] [id number] * (ABNORMAL) BASIC METABOLIC PANEL (05/18/2025 6:28 AM EDT) Sodium 136 136 - 145 mmol/L 05/18/2025 7:08 AM EDT [facility] Potassium 4.2 3.5 - 5.0 mmol/L 05/18/2025 7:08 AM EDT [facility] Chloride 106 98 - 107 mmol/L 05/18/2025 7:08 AM EDT [facility] Total CO2 19(L) 22 - 29 mmol/L 05/18/2025 7:08 AM EDT [facility], [facility] Anion Gap 11 7 - 16 mmol/L 05/18/2025 7:08 AM EDT [facility], [facility] Calcium 8.9 8.8 - 10.4 mg/dL 05/18/2025 7:08 AM EDT [facility], [facility] Glucose Lvl 131(H) 70 - 99 mg/dL 05/18/2025 7:08 AM EDT [facility], [facility] BUN 18 8 - 23 mg/dL 05/18/2025 7:08 AM EDT [facility], [facility] Creatinine 0.83 0.51 - 1.30 mg/dL 05/18/2025 7:08 AM EDT [facility], [facility] eGFR (CKD-EPIcr 2020) 69 >=60 mL/min/1.7 3 m2 05/18/2025 7:08 AM EDT [facility], [facility] Comment:Estimated GFR was ca lculated using the CKD-EPIcr (2020) equation refit without race. The equation is recommended by the National Kidney [employer] - [place] [employer] Nephrology Task Force. Blood VENOUS BLOOD / Unknown Venipuncture / Unknown 05/18/2025 6:28 AM EDT 05/18/2025 6:37 AM EDT us Carlos Manuel Landaverde II, MD CHEMISTRY ORDERABLES Mita l Result Performing Organization Address City/[facility]/ZIP Co de Phone Number [facility] [address] [facility], [place] [address] * ECG AND WAVEFORMS - TELEMETRY (05/17/2025 7:08 PM EDT) ECG INTERPRET Atrial Fib [facility] 05/17/2025 7:08 PM EDT Narrative [facility] - 05/17/2025 7:18 PM EDT HC/ROUTINE QRS 0.11 See Clinical Report link for waveform capture us Unknown Provider POINT OF CARE CARDIOLOGY Final Result Performing Organization Address [facility]/ZIP Co de Phone Number [facility] [address] [place], [place] [id number] [phone] * MAGNESIUM LEVEL (05/17/2025 1:29 PM EDT) Pathologist [facility] Magnesium 2.1 1.6 - 2.4 mg/dL 05/17/2025 2:32 PM EDT [facility] Blood VENOUS BLOOD / Unknown Venipuncture / Unknown 05/17/2025 1:29 PM EDT 05/17/2025 1:35 PM EDT Carlos Manuel Landaverde II, MD CHEMISTRY ORDERABLES Mita l Result [facility] [address] [facility] [facility] , [place] [address] * (ABNORMAL) CBC (05/17/2025 1:29 PM EDT) Pathologist [facility] WBC 2.9(L) 3.7 - 10.3 x10(3)/mcL 05/17/2025 2:40 PM EDT [facility] RBC 2.15(L) 3.90 - 5.20 x10(6)/mcL 05/17/2025 2:40 PM EDT [facility] Hgb 8.1(L) 11.2 - 15.7 g/dL 05/17/2025 2:40 PM EDT [facility] Hct 25.2(L) 34.0 - 45.0 % 05/17/2025 2:40 PM EDT [facility] MCV 117.2(H) 80.0 - 100.0 fL 05/17/2025 2:40 PM EDT [facility] MCH 37.7(H) 26.0 - 34.0 pg 05/17/2025 2:40 PM EDT [facility] MCHC 32.1 30.7 - 35.5 g/dL 05/17/2025 2:40 PM EDT [facility] RDW 16.3(H) <=14.9 % 05/17/2025 2:40 PM EDT [facility] Platelet 80(L) 155 - 369 x10(3)/mcL 05/17/2025 2:40 PM EDT [facility] MPV 12.6(H) 8.8 - 12.5 fL 05/17/2025 2:40 PM EDT [facility] Blood VENOUS BLOOD / Unknown Venipuncture / Unknown 05/17/2025 1:29 PM EDT 05/17/2025 1:35 PM EDT Carlos Manuel Landaverde II, MD HEMATOLOGY ORDERABLES Fin al Result [facility] [address] [facility] , [place] [id number] * (ABNORMAL) BASIC METABOLIC PANEL (05/17/2025 1:29 PM EDT) Sodium 137 136 - 145 mmol/L 05/17/2025 2:32 PM EDT [facility] Potassium 4.1 3.5 - 5.0 mmol/L 05/17/2025 2:32 PM EDT [facility] Chloride 107 98 - 107 mmol/L 05/17/2025 2:32 PM EDT [facility] Total CO2 21(L) 22 - 29 mmol/L 05/17/2025 2:32 PM EDT [facility] Anion Gap 9 7 - 16 mmol/L 05/17/2025 2:32 PM EDT [facility] Calcium 8.7(L) 8.8 - 10.4 mg/dL 05/17/2025 2:32 PM EDT [facility] Glucose Lvl 107(H) 70 - 99 mg/dL 05/17/2025 2:32 PM EDT [facility] BUN 19 8 - 23 mg/dL 05/17/2025 2:32 PM EDT [facility] Creatinine 0.81 0.51 - 1.30 mg/dL 05/17/2025 2:32 PM EDT [facility] eGFR (CKD-EPIcr 2020) 71 >=60 mL/min/1.7 3 m2 05/17/2025 2:32 PM EDT [facility] [facility] Comment:Estimated GFR was ca lculated using the CKD-EPIcr (2020) equation refit without race. The equation is recommended by the [employer] Kid[employer] - [place] [employer]ph[employer] Task Force. Blood VENOUS BLOOD / Unknown Venipuncture / Unknown 05/17/2025 1:29 PM EDT 05/17/2025 1:35 PM EDT us Carlos Manuel Landaverde II, MD CHEMISTRY ORDERABLES Mita l Result Performing Organization Address City/[facility]/ZIP Co de Phone Number [facility] [email or web address] [facility] [address] [facility], [place] [address] * ECG AND WAVEFORMS - TELEMETRY (05/17/2025 7:31 AM EDT) ECG INTERPRET Atrial Fib [facility] 05/17/2025 7:31 AM EDT Narrative [facility] - 05/17/2025 8:33 AM EDT ROUTINE-BB See Clinical Report link for waveform capture us Unknown Provider POINT OF CARE CARDIOLOGY Final Result Performing Organization Address [facility] de Phone Number [facility] [address] [place] [address] * ECG AND WAVEFORMS - TELEMETRY (05/16/2025 10:49 PM EDT) ECG INTERPRET Atrial Fib [facility] 05/16/2025 10:4 9 PM EDT Narrative [facility] - 05/16/2025 11:00 PM EDT nEW ADMIT (MS) QRS 0.10 See Clinical Report link for waveform capture us Unknown Provider POINT OF CARE CARDIOLOGY Final Result Performing Organization Address [facility] Co de Phone Number [facility] [address] [place] [address] * ECG AND WAVEFORMS - TELEMETRY (05/16/2025 7:26 AM EDT) ECG INTERPRET Atrial Fib [facility] 05/16/2025 7:26 AM EDT Narrative [facility] - 05/16/2025 7:27 AM EDT ROUTINE/PB QRS 0.09 See Clinical Report link for waveform capture us Unknown Provider POINT OF CARE CARDIOLOGY Final Result [facility] [address] [place] [address] * (ABNORMAL) CBC (05/16/2025 3:24 AM EDT) WBC 4.5 3.7 - 10.3 x10(3)/mcL 05/16/2025 3:46 AM EDT [facility] RBC 2.14(L) 3.90 - 5.20 x10(6)/mcL 05/16/2025 3:46 AM EDT [facility] Hgb 8.0(L) 11.2 - 15.7 g/dL 05/16/2025 3:46 AM EDT [facility] Hct 24.8(L) 34.0 - 45.0 % 05/16/2025 3:46 AM EDT [facility] MCV 115.9(H) 80.0 - 100.0 fL 05/16/2025 3:46 AM EDT [facility] MCH 37.4(H) 26.0 - 34.0 pg 05/16/2025 3:46 AM EDT [facility] MCHC 32.3 30.7 - 35.5 g/dL 05/16/2025 3:46 AM EDT [facility] RDW 16.3(H) <=14.9 % 05/16/2025 3:46 AM EDT [facility] Platelet 75(L) 155 - 369 x10(3)/mcL 05/16/2025 3:46 AM EDT [facility] MPV 12.2 8.8 - 12.5 fL 05/16/2025 3:46 AM EDT [facility] Blood VENOUS BLOOD / Unknown Venipuncture / Unknown 05/16/2025 3:24 AM EDT 05/16/2025 3:37 AM EDT us Carlos Manuel Landaverde II, MD HEMATOLOGY ORDERABLES Fin al Result [facility] [address] [facility] , [place] [address] * (ABNORMAL) BASIC METABOLIC PANEL (05/16/2025 3:24 AM EDT) Sodium 136 136 - 145 mmol/L 05/16/2025 4:10 AM EDT [facility] Potassium 4.4 3.5 - 5.0 mmol/L 05/16/2025 4:10 AM EDT [facility] Chloride 105 98 - 107 mmol/L 05/16/2025 4:10 AM EDT [facility] Total CO2 22 22 - 29 mmol/L 05/16/2025 4:10 AM EDT [facility] Anion Gap 9 7 - 16 mmol/L 05/16/2025 4:10 AM EDT [facility] Calcium 8.5(L) 8.8 - 10.4 mg/dL 05/16/2025 4:10 AM EDT [facility] Glucose Lvl 126(H) 70 - 99 mg/dL 05/16/2025 4:10 AM EDT [facility] BUN 18 8 - 23 mg/dL 05/16/2025 4:10 AM EDT [facility] Creatinine 0.80 0.51 - 1.30 mg/dL 05/16/2025 4:10 AM EDT [facility] eGFR (CKD-EPIcr 2020) 72 >=60 mL/min/1.7 3 m2 05/16/2025 4:10 AM EDT [facility] Comment:Estimated GFR was ca lculated using the CKD-EPIcr (2020) equation refit without race. The equation is recommended by the National Kid[employer] - [place] [employer] Neph[employer] Task Force. Blood VENOUS BLOOD / Unknown Venipuncture / Unknown 05/16/2025 3:24 AM EDT 05/16/2025 3:36 AM EDT Carlos Manuel Landaverde II, MD CHEMISTRY ORDERABLES Mita l Result [facility], [address] , [address] [place] [id number] * MAGNESIUM LEVEL (05/16/2025 3:24 AM EDT) Pathologist [facility] Magnesium 1.9 1.6 - 2.4 mg/dL 05/16/2025 4:10 AM EDT [facility] [employer], [facility] Blood VENOUS BLOOD / Unknown Venipuncture / Unknown 05/16/2025 3:24 AM EDT 05/16/2025 3:36 AM EDT Carlos Manuel Landaverde II, MD CHEMISTRY ORDERABLES Mita l Result [facility] [employer], [address] , [place] [address] * ECG AND WAVEFORMS - TELEMETRY (05/15/2025 8:05 PM EDT) [facility] ECG INTERPRET Atrial Fib [facility] 05/15/2025 8:05 PM EDT Narrative [facility] - 05/15/2025 8:11 PM EDT ROUTINE (AM) QRS 0.11 QT 0.45 See Clinical Report link for waveform capture us Unknown Provider POINT OF CARE CARDIOLOGY Final Result [facility] [address] [place], [place] [id number] * (ABNORMAL) CBC (05/15/2025 10:41 AM EDT) Pathologist [facility] WBC 3.1(L) 3.7 - 10.3 x10(3)/mcL 05/15/2025 11:08 AM EDT [facility] [employer], [facility] RBC 2.23(L) 3.90 - 5.20 x10(6)/mcL 05/15/2025 11:08 AM EDT [facility] [employer], [facility] Hgb 8.3(L) 11.2 - 15.7 g/dL 05/15/2025 11:08 AM EDT [facility] [employer], [facility] Hct 25.6(L) 34.0 - 45.0 % 05/15/2025 11:08 AM EDT [facility] MCV 114.8(H) 80.0 - 100.0 fL 05/15/2025 11:08 AM EDT [facility] MCH 37.2(H) 26.0 - 34.0 pg 05/15/2025 11:08 AM EDT [facility], [facility] MCHC 32.4 30.7 - 35.5 g/dL 05/15/2025 11:08 AM EDT [facility] RDW 16.3(H) <=14.9 % 05/15/2025 11:08 AM EDT [facility] Platelet 76(L) 155 - 369 x10(3)/mcL 05/15/2025 11:08 AM EDT [facility] MPV 12.6(H) 8.8 - 12.5 fL 05/15/2025 11:08 AM EDT [facility] Blood VENOUS BLOOD / Unknown Venipuncture / Unknown 05/15/2025 10:41 AM EDT 05/15/2025 10:56 AM EDT Carlos Manuel Landaverde II, MD HEMATOLOGY ORDERABLES Fin al Result Performing Organization Address City/[facility]/ZIP Co de Phone Number [facility] [employer], [facility] [address] [facility] , [place] [address] * MAGNESIUM LEVEL (05/15/2025 10:41 AM EDT) Magnesium 1.9 1.6 - 2.4 mg/dL 05/15/2025 11:30 AM EDT [facility] [employer], [facility] Blood VENOUS BLOOD / Unknown Venipuncture / Unknown 05/15/2025 10:41 AM EDT 05/15/2025 10:56 AM EDT Carlos Manuel Landaverde II, MD CHEMISTRY ORDERABLES Mita l Result Performing Organization Address City/[facility]/ZIP Co de Phone Number [facility] [employer], [facility] [address] [facility] , [place] [address] * (ABNORMAL) BASIC METABOLIC PANEL (05/15/2025 10:41 AM EDT) Sodium 138 136 - 145 mmol/L 05/15/2025 11:30 AM EDT [facility] Potassium 4.4 3.5 - 5.0 mmol/L 05/15/2025 11:30 AM EDT [facility] Chloride 107 98 - 107 mmol/L 05/15/2025 11:30 AM EDT [facility] Total CO2 22 22 - 29 mmol/L 05/15/2025 11:30 AM EDT [facility] Anion Gap 9 7 - 16 mmol/L 05/15/2025 11:30 AM EDT [facility] Calcium 8.7(L) 8.8 - 10.4 mg/dL 05/15/2025 11:30 AM EDT [facility] Glucose Lvl 116(H) 70 - 99 mg/dL 05/15/2025 11:30 AM EDT [facility] BUN 19 8 - 23 mg/dL 05/15/2025 11:30 AM EDT [facility], [facility] Creatinine 0.80 0.51 - 1.30 mg/dL 05/15/2025 11:30 AM EDT [facility], [facility] eGFR (CKD-EPIcr 2020) 72 >=60 mL/min/1.7 3 m2 05/15/2025 11:30 AM EDT [facility], [facility] Comment:Estimated GFR was ca lculated using the CKD-EPIcr (2020) equation refit without race. The equation is recommended by the National Kidney Foundation - [place] [employer] Nephrology Task Force. Blood VENOUS BLOOD / Unknown Venipuncture / Unknown 05/15/2025 10:41 AM EDT 05/15/2025 10:56 AM EDT us Carlos Manuel Landaverde II, MD CHEMISTRY ORDERABLES Mita mills Result [facility], [facility] [address] [facility] , [place] [address] * ECG AND WAVEFORMS - TELEMETRY (05/15/2025 7:03 AM EDT) ECG INTERPRET Atrial Fib [facility] 05/15/2025 7:03 AM EDT Narrative [facility] - 05/15/2025 7:51 AM EDT ROUTINE-BB See Clinical Report link for waveform capture us Unknown Provider POINT OF CARE CARDIOLOGY Final Result Performing Organization Address [facility] de Phone Number [facility] [address] [place] [address] * ECG AND WAVEFORMS - TELEMETRY (05/14/2025 8:40 PM EDT) ECG INTERPRET Atrial Fib [facility] 05/14/2025 8:40 PM EDT Narrative [facility] - 05/14/2025 8:45 PM EDT PVCS ROUTINE (AM) See Clinical Report link for waveform capture us Unknown Provider POINT OF CARE CARDIOLOGY Final Result Performing Organization Address [facility] Phone Number [facility] [address] [place] [address] * ECG AND WAVEFORMS - TELEMETRY (05/14/2025 7:46 AM EDT) ECG INTERPRET Atrial Fib [facility] 05/14/2025 7:46 AM EDT Narrative [facility] - 05/14/2025 7:47 AM EDT ROUTINE/PB QRS 0.09 See Clinical Report link for waveform capture us Unknown Provider POINT OF CARE CARDIOLOGY Final Result Performing Organization Address [facility] de Phone Number [facility] [address] [place] [address] * ECG AND WAVEFORMS - TELEMETRY (05/13/2025 8:30 PM EDT) ECG INTERPRET Atrial Fib [facility] 05/13/2025 8:30 PM EDT Narrative [facility] - 05/13/2025 8:37 PM EDT PVC . ROUTINE (AM) GA 0.19 QRS 0.11 RR 0.65 QT 0.37 QTc 0.46 See Clinical Report link for waveform capture us Unknown Provider POINT OF CARE CARDIOLOGY Final Result Performing Organization Address [facility] Co de Phone Number [facility] [address] [place] [address] * ECG AND WAVEFORMS - TELEMETRY (05/13/2025 6:32 PM EDT) ECG INTERPRET Ventricular Tachycardia [facility] Comment:6 beats 05/13/2025 6:32 PM EDT Narrative [facility] - 05/13/2025 6:40 PM EDT 6 BTS NSVT/AK See Clinical Report link for waveform capture us Unknown Provider POINT OF CARE CARDIOLOGY Final Result Performing Organization Address [facility] de Phone Number [facility] [address] [place] [address] * ECG AND WAVEFORMS - TELEMETRY (05/13/2025 7:40 AM EDT) ECG INTERPRET Atrial Fib [facility] 05/13/2025 7:40 AM EDT Narrative [facility] - 05/13/2025 7:44 AM EDT ROUTINE/AK QRS 0.09 See Clinical Report link for waveform capture us Unknown Provider POINT OF CARE CARDIOLOGY Final Result Performing Organization Address [facility] de Phone Number [facility] [address] [place] [address] * ECG AND WAVEFORMS - TELEMETRY (05/12/2025 7:00 PM EDT) ECG INTERPRET Atrial Fib [facility] 05/12/2025 7:00 PM EDT Narrative [facility] - 05/12/2025 7:46 PM EDT ROUTINE (MS) QRS 0.10 See Clinical Report link for waveform capture us Unknown Provider POINT OF CARE CARDIOLOGY Final Result Performing Organization Address [facility] Co de Phone Number [facility] [address] [place] [address] * GLUCOSE METER POC (05/12/2025 12:04 PM EDT) Glucose Meter POC 87 70 - 100 mg/dL 05/12/2025 12:05 PM EDT [facility] Sample Type Capillary 05/12/2025 12:05 PM EDT [facility] Patient Status Non-Critical Patient 05/12/2025 12:05 PM EDT [facility] Blood BLOOD SPECIMEN / Unknown 05/12/2025 12:04 PM EDT 05/12/2025 12:05 PM EDT us Marcell Aguirre MD POINT OF CARE TEST [place] [address] * (ABNORMAL) GLUCOSE METER POC (05/12/2025 10:40 AM EDT) Glucose Meter POC 105(H) 70 - 100 mg/dL 05/12/2025 10:43 AM EDT [facility] Sample Type Capillary 05/12/2025 10:43 AM EDT [facility] Patient Status Non-Critical Patient 05/12/2025 10:43 AM EDT [facility] Blood BLOOD SPECIMEN / Unknown 05/12/2025 10:40 AM EDT 05/12/2025 10:43 AM EDT us Marcell Aguirre MD POINT OF CARE TEST ORDERABLES Final Result [facility] [address] [place] [address] * ECG AND WAVEFORMS - TELEMETRY (05/12/2025 7:30 AM EDT) ECG INTERPRET Atrial Fib [facility] 05/12/2025 7:30 AM EDT Narrative [facility] - 05/12/2025 7:59 AM EDT TRO/AM ROUTINE QRS 0.10 QT 0.39 See Clinical Report link for waveform capture us Unknown Provider POINT OF CARE CARDIOLOGY Final Result Performing Organization Address [facility] Co de Phone Number [facility] [address] [place] [address] * ECG AND WAVEFORMS - TELEMETRY (05/11/2025 7:00 PM EDT) ECG INTERPRET Atrial Fib [facility] 05/11/2025 7:00 PM EDT Narrative [facility] - 05/11/2025 8:43 PM EDT QRS 0.09 See Clinical Report link for waveform capture us Unknown Provider POINT OF CARE CARDIOLOGY Final Result Performing Organization Address [facility] de Phone Number [facility] [address] [place] [address] * ECG AND WAVEFORMS - TELEMETRY (05/11/2025 8:01 AM EDT) ECG INTERPRET Atrial Fib [facility] 05/11/2025 8:01 AM EDT Narrative [facility] - 05/11/2025 8:32 AM EDT TRO/AM ROUTINE- AFIB PVC QRS 0.11 QT 0.37 See Clinical Report link for waveform capture us Unknown Provider POINT OF CARE CARDIOLOGY Final Result Performing Organization Address [facility] Co de Phone Number [facility] [address] [place] [address] * ECG AND WAVEFORMS - TELEMETRY (05/10/2025 7:12 PM EDT) ECG INTERPRET Atrial Fib [facility] 05/10/2025 7:12 PM EDT Narrative [facility] - 05/10/2025 7:56 PM EDT ROUTINE QRS 0.12 See Clinical Report link for waveform capture us Unknown Provider POINT OF CARE CARDIOLOGY Final Result Performing Organization Address [facility] Co de Phone Number [facility] [address] [place] [address] * ECG AND WAVEFORMS - TELEMETRY (05/10/2025 5:30 PM EDT) ECG INTERPRET Atrial Fib [facility] 05/10/2025 5:30 PM EDT Narrative [facility] - 05/10/2025 5:34 PM EDT ADMIT (BS) QRS 0.09 See Clinical Report link for waveform capture us Unknown Provider POINT OF CARE CARDIOLOGY Final Result Performing Organization Address City/[facility]/ZIP Co de Phone Number [facility] [address] [place] [address] * (ABNORMAL) GLUCOSE METER POC (05/10/2025 2:18 PM EDT) [facility] Signature Glucose Meter POC 104(H) 70 - 100 mg/dL 05/10/2025 2:20 PM EDT [facility] Sample Type Capillary 05/10/2025 2:20 PM EDT [facility] Patient Status Non-Critical Patient 05/10/2025 2:20 PM EDT [facility] Blood BLOOD SPECIMEN / Unknown 05/10/2025 2:18 PM EDT 05/10/2025 2:20 PM EDT us Marcell Aguirre MD POINT OF CARE TEST ORDERABLES Final Result Performing Organization Address City/[facility]/ZIP Co de Phone Number [facility] [address] [place] [address] * IR ULTRASOUND GUIDED VASCULAR ACCESS (05/10/2025 2:06 PM EDT) Anatomical Region Laterality Modality Interventional R adiology Narrative 05/19/2025 3:05 PM EDT DATE OF PROCEDURE: 05/10/2025 PREOPERATIVE DIAGNOSES: LLE critical limb ischemia, History of L TMA, PAD POSTOPERATIVE DIAGNOSES: Same PROCEDURE PERFORMED: 1. US guided access of the right common femoral artery 2. Abdominal aortogram. Selection of L SFA via R COMPLIANCE PARALEGAL (3rd order) with left lower extremity angiogram. Selection of QUALITY CONTROL ASSOCIATE with additional angiogram. Radiographic supervision and interpretation 3. RLE angiogram. Radiographic supervision and interpretation Mynx closure of 5 Fr arteriotomy SURGEON: Lawrence Wolf MD ANESTHESIA: General anesthesia FLUOROSCOPY: Dose: 309 mGy, Time: 27.6 min CONTRAST: 68 ml ESTIMATED BLOOD LOSS: 5 mL SPECIMENS: None COMPLICATIONS: None FINDINGS: Access site was patent with stenosis. AORTA: Widely patent infrarenal aorta and bilateral renal arteries. RIGHT ILIAC ARTERIES: Widely patent common, internal and external iliac arteries. RIGHT FEMORAL ARTERIES: Patent common femoral artery with significant stenosis, patent profunda artery and patent SFA with severe focal stenosis of ostium and distal segment RIGHT POPLITEAL ARTERY: patent with multifocal mild and moderate stenosis RIGHT TIBIAL ARTERIES: DAREN with multifocal severe stenosis (possible short segment occlusion vs critical stenosis in proximal DAREN) and occluded distally at ankle, occluded TPT and peroneal artery, reconstitution of proximal QUALITY CONTROL ASSOCIATE with mid and distal QUALITY CONTROL ASSOCIATE with multifocal severe stenosis of proximal and mid QUALITY CONTROL ASSOCIATE but occluded distally without reconstitution. Significant small vessel disease in R foot LEFT ILIAC ARTERIES: Widely patent common, internal and external iliac arteries. LEFT FEMORAL ARTERIES: patent common femoral artery with moderate stenosis. Patent superficial femoral and profunda arteries without flow-limiting stenosis LEFT POPLITEAL ARTERY: Patent popliteal artery with mod-severe stenosis LEFT TIBIAL ARTERIES: Patent DAREN with multifocal severe stenosis but occluded just proximal to the ankle without reconstitution. Patent TPT with severe stenosis, patent proximal and mid QUALITY CONTROL ASSOCIATE with multifocal severe stenosis, patent peroneal artery Significant small vessel disease in L foot INDICATIONS: Skyler Bautista is a 84 y.o. female with PMHx significant for PAD s/p pelvic angiogram with bilateral NILAY stents s/p LLE angiogram with QUALITY CONTROL ASSOCIATE of popliteal artery, TPT and peroneal artery s/p L TMA who presented with necrosis and dehiscence of L TMA. I discussed proximal amputation vs repeat angiogram with patient and family. I discussed that if there was not anything that would significantly improve perfusion to the foot then it would be a diagnostic angiogram. Patient wanted everything possibly done even if an angiogram was only diagnostic. . Risks (including bleeding, infection, injury to the vessel resulting in thrombosis or distal embolization, contrast nephropathy, as well as cardiopulmonary complications), benefits and alternatives were discussed at length with the patient and family, and all questions were answered. Informed consent was signed. PROCEDURE DETAILS: The patient was brought to the IR suite, identified and placed supine on the table. The patient was placed under general anesthesia. The procedure sites were prepped and draped in a sterile fashion. Time out was performed. The femoral head was marked with a hemostat. Under ultrasound guidance, the R COMPLIANCE PARALEGAL was accessed using a micropuncture needle. X-ray confirmed appropriate position. Ultrasound showed a patent vessel, the puncture site was visualized and image was retained. The needle was exchanged over a guidewire for the micropuncture sheath. An angiogram was obtained which revealed no access related complications and appropriate position. The small sheath was then exchanged over a guidewire for an 11 cm 5 Fr sheath. Next, SinDelantalson wire and Omniflush catheter were advanced to the abdominal aorta, and an abdominal aortogram was performed. See findings above. Over the guidewire, Omniflush catheter was advanced to the contralateral external iliac artery and a left femoral angiogram was performed. See findings above. The catheter was then advanced over a guidewire into the SFA and left lower extremity angiogram was performed. See findings above. The short 5 Fr sheath was exchanged for a long 5 Fr sheath. IV heparin was administered. A wire and catheter were advanced into the popliteal artery an angiogram was obtained. A wire and catheter were used to select the QUALITY CONTROL ASSOCIATE to better evaluate if it reconstituted distally. After the QUALITY CONTROL ASSOCIATE was selected, an angiogram was obtained, which did not reveal any distal reconstitution; thus any intervention on it would not lead to any clinical benefit. The catheter was retracted into the popliteal artery. Another angiogram was obtained which confirmed the DAREN occluded proximal to the ankle without reconstitution. The wire and catheter were advanced into the peroneal artery and the wire was removed. An angiogram was obtained, which still showed minimal filling of the L foot. While there was disease in the popliteal and TPT that could be intervened upon, I did not think this clinically would lead to the TMA being salvaged given the extent of small vessel disease in the L foot., so intervention was not performed. The long 5 Fr sheath was exchanged for a short 5 Fr sheath. A RLE angiogram was obtained. See findings above. 5 Fr Mynx closure device was then successfully deployed. Gentle manual pressure was held to assure hemostasis. A sterile dressing was applied to the access site. The patient tolerated the procedure well with no immediate complications. I was present and scrubbed for the entire procedure. The patient was then safely transferred to the PACU in stable condition after the procedure. SUMMARY: Significant small vessel disease. Occluded QUALITY CONTROL ASSOCIATE and DAREN distally without reconstitution. RECOMMENDATIONS: Bed rest for 3 hours. Recommend proximal LLE amputation. Voice recognition technology was used to complete this note, and it may contain unintended errors despite the mortgage loan underwriter's best efforts to proofread it. Please contact me with questions. TID: [id number] us Lawrence Wolf MD IMG IR ORDERABLES Final Res ult * IR ABDOMINAL AORTOGRAM SERIALOGRAM (05/10/2025 2:06 PM EDT) Anatomical Region Laterality Modality Interventional R adiology Narrative 05/19/2025 3:05 PM EDT DATE OF PROCEDURE: 05/10/2025 PREOPERATIVE DIAGNOSES: LLE critical limb ischemia, History of L TMA, PAD POSTOPERATIVE DIAGNOSES: Same PROCEDURE PERFORMED: 1. US guided access of the right common femoral artery 2. Abdominal aortogram. Selection of L SFA via R COMPLIANCE PARALEGAL (3rd order) with left lower extremity angiogram. Selection of QUALITY CONTROL ASSOCIATE with additional angiogram. Radiographic supervision and interpretation 3. RLE angiogram. Radiographic supervision and interpretation Mynx closure of 5 Fr arteriotomy SURGEON: Lawrence Wolf MD ANESTHESIA: General anesthesia FLUOROSCOPY: Dose: 309 mGy, Time: 27.6 min CONTRAST: 68 ml ESTIMATED BLOOD LOSS: 5 mL SPECIMENS: None COMPLICATIONS: None FINDINGS: Access site was patent with stenosis. AORTA: Widely patent infrarenal aorta and bilateral renal arteries. RIGHT ILIAC ARTERIES: Widely patent common, internal and external iliac arteries. RIGHT FEMORAL ARTERIES: Patent common femoral artery with significant stenosis, patent profunda artery and patent SFA with severe focal stenosis of ostium and distal segment RIGHT POPLITEAL ARTERY: patent with multifocal mild and moderate stenosis RIGHT TIBIAL ARTERIES: DAREN with multifocal severe stenosis (possible short segment occlusion vs critical stenosis in proximal DAREN) and occluded distally at ankle, occluded TPT and peroneal artery, reconstitution of proximal QUALITY CONTROL ASSOCIATE with mid and distal QUALITY CONTROL ASSOCIATE with multifocal severe stenosis of proximal and mid QUALITY CONTROL ASSOCIATE but occluded distally without reconstitution. Significant small vessel disease in R foot LEFT ILIAC ARTERIES: Widely patent common, internal and external iliac arteries. LEFT FEMORAL ARTERIES: patent common femoral artery with moderate stenosis. Patent superficial femoral and profunda arteries without flow-limiting stenosis LEFT POPLITEAL ARTERY: Patent popliteal artery with mod-severe stenosis LEFT TIBIAL ARTERIES: Patent DAREN with multifocal severe stenosis but occluded just proximal to the ankle without reconstitution. Patent TPT with severe stenosis, patent proximal and mid QUALITY CONTROL ASSOCIATE with multifocal severe stenosis, patent peroneal artery Significant small vessel disease in L foot INDICATIONS: Skyler Bautista is a 84 y.o. female with PMHx significant for PAD s/p pelvic angiogram with bilateral NILAY stents s/p LLE angiogram with QUALITY CONTROL ASSOCIATE of popliteal artery, TPT and peroneal artery s/p L TMA who presented with necrosis and dehiscence of L TMA. I discussed proximal amputation vs repeat angiogram with patient and family. I discussed that if there was not anything that would significantly improve perfusion to the foot then it would be a diagnostic angiogram. Patient wanted everything possibly done even if an angiogram was only diagnostic. . Risks (including bleeding, infection, injury to the vessel resulting in thrombosis or distal embolization, contrast nephropathy, as well as cardiopulmonary complications), benefits and alternatives were discussed at length with the patient and family, and all questions were answered. Informed consent was signed. PROCEDURE DETAILS: The patient was brought to the IR suite, identified and placed supine on the table. The patient was placed under general anesthesia. The procedure sites were prepped and draped in a sterile fashion. Time out was performed. The femoral head was marked with a hemostat. Under ultrasound guidance, the R COMPLIANCE PARALEGAL was accessed using a micropuncture needle. X-ray confirmed appropriate position. Ultrasound showed a patent vessel, the puncture site was visualized and image was retained. The needle was exchanged over a guidewire for the micropuncture sheath. An angiogram was obtained which revealed no access related complications and appropriate position. The small sheath was then exchanged over a guidewire for an 11 cm 5 Fr sheath. Next, Bentson wire and Omniflush catheter were advanced to the abdominal aorta, and an abdominal aortogram was performed. See findings above. Over the guidewire, Omniflush catheter was advanced to the contralateral external iliac artery and a left femoral angiogram was performed. See findings above. The catheter was then advanced over a guidewire into the SFA and left lower extremity angiogram was performed. See findings above. The short 5 Fr sheath was exchanged for a long 5 Fr sheath. IV heparin was administered. A wire and catheter were advanced into the popliteal artery an angiogram was obtained. A wire and catheter were used to select the QUALITY CONTROL ASSOCIATE to better evaluate if it reconstituted distally. After the QUALITY CONTROL ASSOCIATE was selected, an angiogram was obtained, which did not reveal any distal reconstitution; thus any intervention on it would not lead to any clinical benefit. The catheter was retracted into the popliteal artery. Another angiogram was obtained which confirmed the DAREN occluded proximal to the ankle without reconstitution. The wire and catheter were advanced into the peroneal artery and the wire was removed. An angiogram was obtained, which still showed minimal filling of the L foot. While there was disease in the popliteal and TPT that could be intervened upon, I did not think this clinically would lead to the TMA being salvaged given the extent of small vessel disease in the L foot., so intervention was not performed. The long 5 Fr sheath was exchanged for a short 5 Fr sheath. A RLE angiogram was obtained. See findings above. 5 Fr Mynx closure device was then successfully deployed. Gentle manual pressure was held to assure hemostasis. A sterile dressing was applied to the access site. The patient tolerated the procedure well with no immediate complications. I was present and scrubbed for the entire procedure. The patient was then safely transferred to the PACU in stable condition after the procedure. SUMMARY: Significant small vessel disease. Occluded QUALITY CONTROL ASSOCIATE and DAREN distally without reconstitution. RECOMMENDATIONS: Bed rest for 3 hours. Recommend proximal LLE amputation. Voice recognition technology was used to complete this note, and it may contain unintended errors despite the mortgage loan underwriter's best efforts to proofread it. Please contact me with questions. TID: [id number] us Lawrence Wolf MD IMG IR ORDERABLES Final Res ult * ECG AND WAVEFORMS - TELEMETRY (05/10/2025 8:04 AM EDT) ECG INTERPRET Atrial Fib [facility] 05/10/2025 8:04 AM EDT Narrative [facility] - 05/10/2025 8:10 AM EDT EH - ROUTINE; PVCs QRS 0.12 See Clinical Report link for waveform capture us Unknown Provider POINT OF CARE CARDIOLOGY Final Result Performing Organization Address [facility]/ZIP Co de Phone Number [facility] [address] [place] [address] * ECG AND WAVEFORMS - TELEMETRY (05/09/2025 7:03 PM EDT) ECG INTERPRET Atrial Fib [facility] 05/09/2025 7:03 PM EDT Narrative [facility] - 05/09/2025 8:25 PM EDT PVC- ROUTINE QRS 0.09 See Clinical Report link for waveform capture us Unknown Provider POINT OF CARE CARDIOLOGY Final Result Performing Organization Address [facility] de Phone Number [facility] [address] [place] [address] * (ABNORMAL) GLUCOSE METER POC (05/09/2025 3:49 PM EDT) [facility] Signature Glucose Meter POC 134(H) 70 - 100 mg/dL 05/09/2025 3:50 PM EDT [facility] Sample Type Capillary 05/09/2025 3:50 PM EDT [facility] Patient Status Non-Critical Patient 05/09/2025 3:50 PM EDT [facility] Blood BLOOD SPECIMEN / Unknown 05/09/2025 3:49 PM EDT 05/09/2025 3:50 PM EDT us Marcell Aguirre MD POINT OF CARE TEST ORDERABLES Final Result Performing Organization Address City/[facility] Co de Phone Number [facility] [address] [place] [address] * ECG AND WAVEFORMS - TELEMETRY (05/09/2025 12:37 PM EDT) ECG INTERPRET Atrial Fib [facility] 05/09/2025 12:3 7 PM EDT Narrative [facility] - 05/09/2025 12:40 PM EDT EH - NEW ADMIT; PVCs QRS 0.12 See Clinical Report link for waveform capture us Unknown Provider POINT OF CARE CARDIOLOGY Final Result Performing Organization Address [facility] Co de Phone Number [facility] [address] [place] [address] * ECG AND WAVEFORMS - TELEMETRY (05/09/2025 7:34 AM EDT) ECG INTERPRET Atrial Fib [facility] 05/09/2025 7:34 AM EDT Narrative [facility] - 05/09/2025 7:58 AM EDT ROUTINE//AC See Clinical Report link for waveform capture us Unknown Provider POINT OF CARE CARDIOLOGY Final Result Performing Organization Address [facility] de Phone Number [facility] [address] [place] [address] * ECG AND WAVEFORMS - TELEMETRY (05/08/2025 7:01 PM EDT) ECG INTERPRET Atrial Fib [facility] 05/08/2025 7:01 PM EDT Narrative [facility] - 05/08/2025 7:49 PM EDT ROUTINE W/ PVCS (HM) QRS 0.09 See Clinical Report link for waveform capture us Unknown Provider POINT OF CARE CARDIOLOGY Final Result Performing Organization Address [facility] de Phone Number [facility] [address] [place] [address] * ECG AND WAVEFORMS - TELEMETRY (05/08/2025 7:20 AM EDT) ECG INTERPRET Atrial Fib [facility] 05/08/2025 7:20 AM EDT Narrative [facility] - 05/08/2025 7:22 AM EDT PVCS-ROUTINE/PB QRS 0.09 See Clinical Report link for waveform capture us Unknown Provider POINT OF CARE CARDIOLOGY Final Result Performing Organization Address [facility] Co de Phone Number [facility] [address] [place] [address] * (ABNORMAL) CBC (05/08/2025 5:24 AM EDT) Pathologist [facility] WBC 3.9 3.7 - 10.3 x10(3)/[facility] 05/08/2025 6:38 AM EDT [facility] RBC 1.99(L) 3.90 - 5.20 x10(6)/[facility] 05/08/2025 6:38 AM EDT [facility] Hgb 7.4(L) 11.2 - 15.7 g/dL 05/08/2025 6:38 AM EDT [facility] Hct 22.6(L) 34.0 - 45.0 % 05/08/2025 6:38 AM EDT [facility] MCV 113.6(H) 80.0 - 100.0 fL 05/08/2025 6:38 AM EDT [facility] MCH 37.2(H) 26.0 - 34.0 pg 05/08/2025 6:38 AM EDT [facility] MCHC 32.7 30.7 - 35.5 g/dL 05/08/2025 6:38 AM EDT [facility] RDW 17.6(H) <=14.9 % 05/08/2025 6:38 AM EDT [facility] Platelet 60(L) 155 - 369 x10(3)/[facility] 05/08/2025 6:38 AM EDT [facility] MPV 12.6(H) 8.8 - 12.5 fL 05/08/2025 6:38 AM EDT [facility] Blood VENOUS BLOOD / Unknown Venipuncture / Unknown 05/08/2025 5:24 AM EDT 05/08/2025 6:28 AM EDT us Geo Guallpa MD HEMATOLOGY ORDERABLES Final Resu lt [facility] [address] [facility] , [place] [address] * (ABNORMAL) BASIC METABOLIC PANEL (05/08/2025 5:24 AM EDT) Sodium 137 136 - 145 mmol/L 05/08/2025 6:59 AM EDT [facility] Potassium 4.2 3.5 - 5.0 mmol/L 05/08/2025 6:59 AM EDT [facility] Chloride 107 98 - 107 mmol/L 05/08/2025 6:59 AM EDT [facility] Total CO2 21(L) 22 - 29 mmol/L 05/08/2025 6:59 AM EDT [facility] Anion Gap 9 7 - 16 mmol/L 05/08/2025 6:59 AM EDT [facility] Calcium 8.6(L) 8.8 - 10.4 mg/dL 05/08/2025 6:59 AM EDT [facility] Glucose Lvl 116(H) 70 - 99 mg/dL 05/08/2025 6:59 AM EDT [facility], [facility] BUN 27(H) 8 - 23 mg/dL 05/08/2025 6:59 AM EDT [facility] Creatinine 0.78 0.51 - 1.30 mg/dL 05/08/2025 6:59 AM EDT [facility] eGFR (CKD-EPIcr 2020) 74 >=60 mL/min/1.7 3 m2 05/08/2025 6:59 AM EDT [facility], [facility] Comment:Estimated GFR was ca lculated using the CKD-EPIcr (2020) equation refit without race. The equation is recommended by the National Kid[employer] - [place] [employer] Neph[employer] Task Force. Blood VENOUS BLOOD / Unknown Venipuncture / Unknown 05/08/2025 5:24 AM EDT 05/08/2025 6:28 AM EDT us Geo Guallpa MD CHEMISTRY ORDERABLES Final Resul t [facility] [address] [facility] , [place] [address] * ECG AND WAVEFORMS - TELEMETRY (05/07/2025 10:27 PM EDT) ECG INTERPRET Atrial Fib [facility] 05/07/2025 10:2 7 PM EDT Narrative [facility] - 05/07/2025 10:29 PM EDT ROUTINE/JF QRS 0.10 See Clinical Report link for waveform capture us Unknown Provider POINT OF CARE CARDIOLOGY Final Result [facility] 1 [place] [id number] * (ABNORMAL) CBC (05/07/2025 7:33 AM EDT) WBC 6.8 3.7 - 10.3 x10(3)/mcL 05/07/2025 7:49 AM EDT [facility] RBC 2.32(L) 3.90 - 5.20 x10(6)/mcL 05/07/2025 7:49 AM EDT [facility] Hgb 8.8(L) 11.2 - 15.7 g/dL 05/07/2025 7:49 AM EDT [facility] Hct 26.5(L) 34.0 - 45.0 % 05/07/2025 7:49 AM EDT [facility] MCV 114.2(H) 80.0 - 100.0 fL 05/07/2025 7:49 AM EDT [facility] MCH 37.9(H) 26.0 - 34.0 pg 05/07/2025 7:49 AM EDT [facility] MCHC 33.2 30.7 - 35.5 g/dL 05/07/2025 7:49 AM EDT [facility] RDW 17.2(H) <=14.9 % 05/07/2025 7:49 AM EDT [facility] Platelet 68(L) 155 - 369 x10(3)/mcL 05/07/2025 7:49 AM EDT [facility] MPV 12.2 8.8 - 12.5 fL 05/07/2025 7:49 AM EDT [facility] Blood VENOUS BLOOD / Unknown Venipuncture / Unknown 05/07/2025 7:33 AM EDT 05/07/2025 7:38 AM EDT Geo Guallpa MD HEMATOLOGY ORDERABLES Final Resu lt [facility] 1 [facility], [address] [place] [id number] * (ABNORMAL) BASIC METABOLIC PANEL (05/07/2025 7:33 AM EDT) Sodium 135(L) 136 - 145 mmol/L 05/07/2025 8:11 AM EDT [facility] Potassium 4.2 3.5 - 5.0 mmol/L 05/07/2025 8:11 AM EDT [facility] Chloride 104 98 - 107 mmol/L 05/07/2025 8:11 AM EDT [facility] Total CO2 20(L) 22 - 29 mmol/L 05/07/2025 8:11 AM EDT [facility] Anion Gap 11 7 - 16 mmol/L 05/07/2025 8:11 AM EDT [facility] Calcium 9.0 8.8 - 10.4 mg/dL 05/07/2025 8:11 AM EDT [facility] Glucose Lvl 112(H) 70 - 99 mg/dL 05/07/2025 8:11 AM EDT [facility] BUN 24(H) 8 - 23 mg/dL 05/07/2025 8:11 AM EDT [facility] Creatinine 0.85 0.51 - 1.30 mg/dL 05/07/2025 8:11 AM EDT [facility] eGFR (CKD-EPIcr 2020) 67 >=60 mL/min/1.7 3 m2 05/07/2025 8:11 AM EDT [facility] Comment:Estimated GFR was ca lculated using the CKD-EPIcr (2020) equation refit without race. The equation is recommended by the [employer] - [place] [employer] Neph[employer] Task Force. Blood VENOUS BLOOD / Unknown Venipuncture / Unknown 05/07/2025 7:33 AM EDT 05/07/2025 7:38 AM EDT Geo Guallpa MD CHEMISTRY ORDERABLES Final Resul t Performing Organization Address City/[facility]/ZIP Co de Phone Number [facility] 1 [facility], [place] [address] * ECG AND WAVEFORMS - TELEMETRY (05/07/2025 7:03 AM EDT) ECG INTERPRET Atrial Fib [facility] 05/07/2025 7:03 AM EDT Narrative [facility] - 05/07/2025 8:32 AM EDT AM ROUTINE QRS 0.09 See Clinical Report link for waveform capture us Unknown Provider POINT OF CARE CARDIOLOGY Final Result Performing Organization Address [facility] Co de Phone Number [facility] [address] [place] [address] * ECG AND WAVEFORMS - TELEMETRY (05/06/2025 9:57 PM EDT) ECG INTERPRET Atrial Fib [facility] 05/06/2025 9:57 PM EDT Narrative [facility] - 05/06/2025 9:59 PM EDT ROUTINE/JF QRS 0.08 See Clinical Report link for waveform capture us Unknown Provider POINT OF CARE CARDIOLOGY Final Result Performing Organization Address [facility] de Phone Number [facility] [address] [place] [address] * (ABNORMAL) GLUCOSE METER POC (05/06/2025 5:50 PM EDT) Glucose Meter POC 110(H) 70 - 100 mg/dL 05/06/2025 5:52 PM EDT [facility] Sample Type Capillary 05/06/2025 5:52 PM EDT [facility] Patient Status Non-Critical Patient 05/06/2025 5:52 PM EDT [facility] Blood BLOOD SPECIMEN / Unknown 05/06/2025 5:50 PM EDT 05/06/2025 5:52 PM EDT us Marcell Aguirre MD POINT OF CARE TEST ORDERABLES Final Result Performing Organization Address City/[facility]/ZIP Co de Phone Number [facility] 1 [place] [phone] * POTASSIUM REPEAT (05/06/2025 9:19 AM EDT) [facility] Potassium 4.8 3.5 - 5.0 mmol/L 05/06/2025 9:56 AM EDT [facility] Blood VENOUS BLOOD / Unknown Venipuncture / Unknown 05/06/2025 9:19 AM EDT 05/06/2025 9:23 AM EDT us Geo Guallpa MD CHEMISTRY ORDERABLES Final Resul t Performing Organization Address City/[facility]/ZIP Co de Phone Number [facility] [employer] 1 [facility], [place] [address] * ECG AND WAVEFORMS - TELEMETRY (05/06/2025 7:00 AM EDT) [facility] ECG INTERPRET Atrial Fib [facility] 05/06/2025 7:00 AM EDT Narrative [facility] - 05/06/2025 8:28 AM EDT [facility] - ROUTINE QRS 0.11 See Clinical Report link for waveform capture us Unknown Provider POINT OF CARE CARDIOLOGY Final Result Performing Organization Address City/[facility] Co de Phone Number [facility] 1 [place] [phone] * (ABNORMAL) CBC (05/06/2025 5:59 AM EDT) Pathologist [facility] WBC 4.5 3.7 - 10.3 x10(3)/mcL 05/06/2025 7:53 AM EDT [facility] RBC 2.04(L) 3.90 - 5.20 x10(6)/mcL 05/06/2025 7:53 AM EDT [facility] Hgb 7.6(L) 11.2 - 15.7 g/dL 05/06/2025 7:53 AM EDT [facility] Hct 23.3(L) 34.0 - 45.0 % 05/06/2025 7:53 AM EDT [facility] MCV 114.2(H) 80.0 - 100.0 fL 05/06/2025 7:53 AM EDT [facility] MCH 37.3(H) 26.0 - 34.0 pg 05/06/2025 7:53 AM EDT [facility] MCHC 32.6 30.7 - 35.5 g/dL 05/06/2025 7:53 AM EDT [facility] RDW 17.2(H) <=14.9 % 05/06/2025 7:53 AM EDT [facility] Platelet 64(L) 155 - 369 x10(3)/mcL 05/06/2025 7:53 AM EDT [facility] MPV 12.7(H) 8.8 - 12.5 fL 05/06/2025 7:53 AM EDT [facility] Blood VENOUS BLOOD / Unknown Venipuncture / Unknown 05/06/2025 5:59 AM EDT 05/06/2025 7:40 AM EDT us Geo Guallpa MD HEMATOLOGY ORDERABLES Final Resu lt [facility] 1 [facility] , [place] [address] * (ABNORMAL) BASIC METABOLIC PANEL (05/06/2025 5:59 AM EDT) Sodium 136 136 - 145 mmol/L 05/06/2025 8:15 AM EDT [facility] Potassium 05/06/2025 8:15 AM EDT [facility] Comment:Unable to result pot assium due to elevated hemolysis. Chloride 106 98 - 107 mmol/L 05/06/2025 8:15 AM EDT [facility] Total CO2 19(L) 22 - 29 mmol/L 05/06/2025 8:15 AM EDT [facility] Anion Gap 11 7 - 16 mmol/L 05/06/2025 8:15 AM EDT [facility] Calcium 8.7(L) 8.8 - 10.4 mg/dL 05/06/2025 8:15 AM EDT [facility], [facility] Glucose Lvl 103(H) 70 - 99 mg/dL 05/06/2025 8:15 AM EDT [facility], [facility] BUN 23 8 - 23 mg/dL 05/06/2025 8:15 AM EDT [facility] Creatinine 0.81 0.51 - 1.30 mg/dL 05/06/2025 8:15 AM EDT [facility] eGFR (CKD-EPIcr 2020) 71 >=60 mL/min/1.7 3 m2 05/06/2025 8:15 AM EDT [facility] Comment:Estimated GFR was ca lculated using the CKD-EPIcr (2020) equation refit without race. The equation is recommended by the [employer] Kid[employer] - [place] [employer] Neph[employer] Task Force. Blood VENOUS BLOOD / Unknown Venipuncture / Unknown 05/06/2025 5:59 AM EDT 05/06/2025 7:40 AM EDT us Geo Guallpa MD CHEMISTRY ORDERABLES Final Resul t [address], [place] [address] * ECG AND WAVEFORMS - TELEMETRY (05/05/2025 10:41 PM EDT) ECG INTERPRET Atrial Fib [facility] 05/05/2025 10:4 1 PM EDT Narrative [facility] - 05/05/2025 10:43 PM EDT ROUTINE/AH QRS 0.08 See Clinical Report link for waveform capture us Unknown Provider POINT OF CARE CARDIOLOGY Final Result [facility] 1 [place] [address] * (ABNORMAL) GLUCOSE METER POC (05/05/2025 11:10 AM EDT) Glucose Meter POC 132(H) 70 - 100 mg/dL 05/05/2025 11:12 AM EDT [facility] Sample Type Capillary 05/05/2025 11:12 AM EDT [facility] Patient Status Non-Critical Patient 05/05/2025 11:12 AM EDT [facility] Blood BLOOD SPECIMEN / Unknown 05/05/2025 11:10 AM EDT 05/05/2025 11:12 AM EDT us Marcell Aguirre MD POINT OF CARE TEST ORDERABLES Final Result [facility] [address] [place] [address] * (ABNORMAL) GLUCOSE METER POC (05/05/2025 8:16 AM EDT) Glucose Meter POC 105(H) 70 - 100 mg/dL 05/05/2025 8:17 AM EDT [facility] Sample Type Capillary 05/05/2025 8:17 AM EDT [facility] Patient Status Non-Critical Patient 05/05/2025 8:17 AM EDT [facility] Blood BLOOD SPECIMEN / Unknown 05/05/2025 8:16 AM EDT 05/05/2025 8:17 AM EDT us Marcell Aguirre MD POINT OF CARE TEST ORDERABLES Final Result Performing Organization Address City/[facility]/ZIP Co de Phone Number [facility] [address] [place] [address] * ECG AND WAVEFORMS - TELEMETRY (05/05/2025 7:00 AM EDT) ECG INTERPRET Sinus Arrythmia [facility] 05/05/2025 7:00 AM EDT Narrative [facility] - 05/05/2025 8:47 AM EDT ROUTINE - KB QRS 0.09 See Clinical Report link for waveform capture us Unknown Provider POINT OF CARE CARDIOLOGY Final Result [facility] 1 [place] [address] * (ABNORMAL) GLUCOSE METER POC (05/04/2025 9:12 PM EDT) Glucose Meter POC 115(H) 70 - 100 mg/dL 05/04/2025 9:14 PM EDT [facility] Sample Type Capillary 05/04/2025 9:14 PM EDT [facility] Patient Status Non-Critical Patient 05/04/2025 9:14 PM EDT [facility] Blood BLOOD SPECIMEN / Unknown 05/04/2025 9:12 PM EDT 05/04/2025 9:14 PM EDT us Marcell Aguirre MD POINT OF CARE TEST ORDERABLES Final Result Performing Organization Address City/[facility]/ZIP Co de Phone Number [facility] [address] [place] [address] * ECG AND WAVEFORMS - TELEMETRY (05/04/2025 7:24 PM EDT) ECG INTERPRET Atrial Fib [facility] 05/04/2025 7:24 PM EDT Narrative [facility] - 05/04/2025 7:26 PM EDT PVC'S-ROUTINE /KD QRS 0.10 See Clinical Report link for waveform capture us Unknown Provider POINT OF CARE CARDIOLOGY Final Result Performing Organization Address City/[facility]/ZIP Co de Phone Number [facility] [address] [place] [address] * ECG AND WAVEFORMS - TELEMETRY (05/04/2025 7:01 PM EDT) ECG INTERPRET Atrial Fib [facility] 05/04/2025 7:01 PM EDT Narrative [facility] - 05/04/2025 8:39 PM EDT ROUTINE (HM) QRS 0.10 See Clinical Report link for waveform capture us Unknown Provider POINT OF CARE CARDIOLOGY Final Result [facility] [address] [place] [id number] * (ABNORMAL) GLUCOSE METER POC (05/04/2025 6:53 PM EDT) Glucose Meter POC 120(H) 70 - 100 mg/dL 05/04/2025 6:55 PM EDT [facility] Sample Type Capillary 05/04/2025 6:55 PM EDT [facility] Patient Status Non-Critical Patient 05/04/2025 6:55 PM EDT [facility] Blood BLOOD SPECIMEN / Unknown 05/04/2025 6:53 PM EDT 05/04/2025 6:55 PM EDT Marcell Aguirre MD POINT OF CARE TEST ORDERABLES Final Result [address] [address] * (ABNORMAL) GLUCOSE METER POC (05/04/2025 5:57 PM EDT) Glucose Meter POC 153(H) 70 - 100 mg/dL 05/04/2025 5:59 PM EDT [facility] Sample Type Capillary 05/04/2025 5:59 PM EDT [facility] Patient Status Non-Critical Patient 05/04/2025 5:59 PM EDT [facility] Blood BLOOD SPECIMEN / Unknown 05/04/2025 5:57 PM EDT 05/04/2025 5:59 PM EDT us Marcell Aguirre MD POINT OF CARE TEST ORDERABLES Final Result [address] [address] * (ABNORMAL) GLUCOSE METER POC (05/04/2025 2:55 PM EDT) Glucose Meter POC 116(H) 70 - 100 mg/dL 05/04/2025 2:56 PM EDT [facility] Sample Type Capillary 05/04/2025 2:56 PM EDT [facility] Patient Status Non-Critical Patient 05/04/2025 2:56 PM EDT [facility] Blood BLOOD SPECIMEN / Unknown 05/04/2025 2:55 PM EDT 05/04/2025 2:56 PM EDT Marcell Aguirre MD POINT OF CARE TEST ORDERABLES Final Result [facility] [address] [place] [address] * ECG AND WAVEFORMS - TELEMETRY (05/04/2025 7:00 AM EDT) ECG INTERPRET Atrial Fib [facility] 05/04/2025 7:00 AM EDT Narrative [facility] - 05/04/2025 8:47 AM EDT RS, ROUTINE, PACS, PVCS QRS 0.08 See Clinical Report link for waveform capture us Unknown Provider POINT OF CARE CARDIOLOGY Final Result Performing Organization Address [facility] Co de Phone Number [facility] [address] [place] [address] * (ABNORMAL) GLUCOSE METER POC (05/03/2025 9:54 PM EDT) Glucose Meter POC 175(H) 70 - 100 mg/dL 05/03/2025 9:55 PM EDT [facility] Sample Type Capillary 05/03/2025 9:55 PM EDT [facility] Patient Status Non-Critical Patient 05/03/2025 9:55 PM EDT [facility] Blood BLOOD SPECIMEN / Unknown 05/03/2025 9:54 PM EDT 05/03/2025 9:55 PM EDT us Marcell Aguirre MD POINT OF CARE TEST ORDERABLES Final Result Performing Organization Address City/[facility]/ZIP Co de Phone Number [facility] [address] [place] [phone] * ECG AND WAVEFORMS - TELEMETRY (05/03/2025 6:59 PM EDT) ECG INTERPRET Sinus Tachycardia [facility] 05/03/2025 6:59 PM EDT Narrative [facility] - 05/03/2025 8:20 PM EDT ROUTINE (CW) QRS 0.06 See Clinical Report link for waveform capture us Unknown Provider POINT OF CARE CARDIOLOGY Final Result Performing Organization Address [facility] Co de Phone Number [facility] [address] [place] [address] * (ABNORMAL) GLUCOSE METER POC (05/03/2025 5:43 PM EDT) Glucose Meter POC 129(H) 70 - 100 mg/dL 05/03/2025 5:45 PM EDT [facility] Sample Type Capillary 05/03/2025 5:45 PM EDT [facility] Patient Status Non-Critical Patient 05/03/2025 5:45 PM EDT [facility] Blood BLOOD SPECIMEN / Unknown 05/03/2025 5:43 PM EDT 05/03/2025 5:45 PM EDT us Marcell Aguirre MD POINT OF CARE TEST ORDERABLES Final Result Performing Organization Address [facility] de Phone Number [facility] [address] [place] [address] * MRI FOOT LEFT WO CONTRAST (05/03/2025 3:53 PM EDT) Anatomical Region Laterality Modality Foot, Toes, Calcaneus, Tarsal Joint Magnetic Resonance 05/03/2025 3:53 PM EDT Impressions 05/03/2025 4:08 PM EDT 1. Status post transmetatarsal amputation. There is mild marrow edema the metatarsal distal stump margins without evidence of osteomyelitis. 2. Dorsal soft tissue wound of the distal stump without an abscess. Narrative 05/03/2025 4:08 PM EDT MRI FOOT LEFT WO CONTRAST 05/03/2025 3:53 PM CLINICAL HISTORY: Diabetic foot infection, failed TMA. COMPARISON: Left foot radiograph 04/30/2025, MRI 01/21/2025. TECHNIQUE: Multiplanar, multisequence MR images of the foot were obtained without contrast. FINDINGS: BONES/JOINTS: Changes of transmetatarsal amputation are present through the mid shafts of all 5 metatarsals. There is mild marrow edema involving the distal stump margins of the metatarsal without confluent T1 hypointense marrow-replacing signal. Tubular edema-like signal extending more proximally within the first metatarsal. The bones of the midfoot, hindfoot, and ankle are intact. There is no joint effusion. SOFT TISSUES: A dorsal soft tissue wound is noted of the distal stump. There is regional subcutaneous edema without a loculated fluid collection. Procedure Note Aileen Smith MD - 05/03/2025 MRI FOOT LEFT WO CONTRAST 05/03/2025 3:53 PM CLINICAL HISTORY: Diabetic foot infection, failed TMA. COMPARISON: Left foot radiograph 04/30/2025, MRI 01/21/2025. TECHNIQUE: Multiplanar, multisequence MR images of the foot wereobtained without contrast. FINDINGS: BONES/JOINTS: Changes of transmetatarsal amputation are present throughthe mid shafts of all 5 metatarsals. There is mild marrow edema involving thedistal stump margins of the metatarsal without confluent T1 hypointense marrow-replacing signal. Tubular edema-like signal extending moreproximally within the first metatarsal. The bones of the midfoot, hindfoot, and ankleare intact. There is no joint effusion. SOFT TISSUES: A dorsal soft tissue wound is noted of the distal stump.There is regional subcutaneous edema without a loculated fluid collection. IMPRESSION: 1. Status post transmetatarsal amputation. There is mild marrow edemathe metatarsal distal stump margins without evidence of osteomyelitis. 2. Dorsal soft tissue wound of the distal stump without an abscess. Jovanni Montesinos APRN IMG MRI ORDERABLES Final Re sult * (ABNORMAL) GLUCOSE METER POC (05/03/2025 2:14 PM EDT) Glucose Meter POC 123(H) 70 - 100 mg/dL 05/03/2025 2:16 PM EDT [facility] Sample Type Capillary 05/03/2025 2:16 PM EDT [facility] Patient Status Non-Critical Patient 05/03/2025 2:16 PM EDT [facility] Blood BLOOD SPECIMEN / Unknown 05/03/2025 2:14 PM EDT 05/03/2025 2:16 PM EDT Marcell Aguirre MD POINT OF CARE TEST ORDERABLES Final Result [facility] [address] [place] [address] * GLUCOSE METER POC (05/03/2025 10:20 AM EDT) Glucose Meter POC 100 70 - 100 mg/dL 05/03/2025 10:21 AM EDT [facility] Sample Type Capillary 05/03/2025 10:21 AM EDT [facility] Patient Status Non-Critical Patient 05/03/2025 10:21 AM EDT [facility] Blood BLOOD SPECIMEN / Unknown 05/03/2025 10:20 AM EDT 05/03/2025 10:21 AM EDT Marcell Aguirre MD POINT OF CARE TEST ORDERABLES Final Result Performing Organization Address City/[facility]/ZIP Co de Phone Number [facility] [address] [place] [address] * ECG AND WAVEFORMS - TELEMETRY (05/03/2025 7:55 AM EDT) ECG INTERPRET Atrial Fib [facility] Comment:with PVCs 05/03/2025 7:55 AM EDT Narrative [facility] - 05/03/2025 8:07 AM EDT KW ROUTINE - PVCS QRS 0.09 See Clinical Report link for waveform capture us Unknown Provider POINT OF CARE CARDIOLOGY Final Result [facility] [address] [place], [place] [id number] * HEMOGLOBIN A1C (05/03/2025 6:37 AM EDT) Pathologist [facility] Hgb A1C 5.3 4.2 - 5.6 % 05/05/2025 3:53 PM EDT [facility] [employer], [facility] Est. Avg Glucose 105 mg/dL 05/05/2025 3:53 PM EDT [facility] [employer], [facility] Blood VENOUS BLOOD / Unknown Venipuncture / Unknown 05/03/2025 6:37 AM EDT 05/03/2025 7:14 AM EDT Narrative [facility] [employer], [facility] - 05/05/2025 3:53 PM EDT REFERENCE RANGE: Normal: 4.0-5.6% Pre-diabetes: 5.7-6.4% Provisional diagnosis of diabetes: >6.4% Hgb F>10% and anything which shortens red cell survival, such as hemolytic anemia, or unstable hemoglobin variants such as HbSS, HbSC, or HbCC, will lower the HbA1c value associated with a given level of glycemic control. us Geo Guallpa MD CHEMISTRY ORDERABLES Final Resul t [facility] [id number] [facility] [address] [facility] , [place] [address] * (ABNORMAL) CBC (05/03/2025 6:37 AM EDT) Pathologist [facility] WBC 3.5(L) 3.7 - 10.3 x10(3)/mcL 05/03/2025 7:38 AM EDT [facility] [employer], [facility] RBC 2.19(L) 3.90 - 5.20 x10(6)/mcL 05/03/2025 7:38 AM EDT [facility] [employer], [facility] Hgb 8.0(L) 11.2 - 15.7 g/dL 05/03/2025 7:38 AM EDT [facility] [employer], [facility] Hct 25.0(L) 34.0 - 45.0 % 05/03/2025 7:38 AM EDT [facility] [employer], [facility] MCV 114.2(H) 80.0 - 100.0 fL 05/03/2025 7:38 AM EDT [facility], [facility] MCH 36.5(H) 26.0 - 34.0 pg 05/03/2025 7:38 AM EDT [facility], [facility] MCHC 32.0 30.7 - 35.5 g/dL 05/03/2025 7:38 AM EDT [facility], [facility] RDW 17.7(H) <=14.9 % 05/03/2025 7:38 AM EDT [facility] Platelet 68(L) 155 - 369 x10(3)/mcL 05/03/2025 7:38 AM EDT [facility] MPV 12.3 8.8 - 12.5 fL 05/03/2025 7:38 AM EDT [facility] Blood VENOUS BLOOD / Unknown Venipuncture / Unknown 05/03/2025 6:37 AM EDT 05/03/2025 7:14 AM EDT Rajendra Cade (Alexandre) Malinda ESCOBEDO HEMATOLOGY NILAM BUTT Final Result [facility], [facility] [address] [facility] , [place] [address] * (ABNORMAL) BASIC METABOLIC PANEL (05/03/2025 6:37 AM EDT) Sodium 137 136 - 145 mmol/L 05/03/2025 8:00 AM EDT [facility] Potassium 4.5 3.5 - 5.0 mmol/L 05/03/2025 8:00 AM EDT [facility] Chloride 105 98 - 107 mmol/L 05/03/2025 8:00 AM EDT [facility] Total CO2 22 22 - 29 mmol/L 05/03/2025 8:00 AM EDT [facility] Anion Gap 10 7 - 16 mmol/L 05/03/2025 8:00 AM EDT [facility] Calcium 8.5(L) 8.8 - 10.4 mg/dL 05/03/2025 8:00 AM EDT [facility] Glucose Lvl 109(H) 70 - 99 mg/dL 05/03/2025 8:00 AM EDT [facility], [facility] BUN 23 8 - 23 mg/dL 05/03/2025 8:00 AM EDT [facility] Creatinine 0.89 0.51 - 1.30 mg/dL 05/03/2025 8:00 AM EDT [facility] eGFR (CKD-EPIcr 2020) 63 >=60 mL/min/1.7 3 m2 05/03/2025 8:00 AM EDT [facility] Comment:Estimated GFR was ca lculated using the CKD-EPIcr (2020) equation refit without race. The equation is recommended by the [employer] - [place] [employer]ph[employer] Task Force. Blood VENOUS BLOOD / Unknown Venipuncture / Unknown 05/03/2025 6:37 AM EDT 05/03/2025 7:14 AM EDT us Donnie Kaur MD CHEMISTRY ORDERABLES Final Result Performing Organization Address City/[facility]/ZIP Co de Phone Number [address], [place] [address] * ECG AND WAVEFORMS - TELEMETRY (05/02/2025 11:00 PM EDT) [facility] ECG INTERPRET Atrial Fib [facility] 05/02/2025 11:0 0 PM EDT Narrative [facility] - 05/02/2025 11:23 PM EDT NEW ADMIT (MS) QRS 0.16 See Clinical Report link for waveform capture us Unknown Provider POINT OF CARE CARDIOLOGY Final Result [facility] [address] [place] [address] * GLUCOSE METER POC (05/02/2025 9:27 PM EDT) [facility] Glucose Meter POC 97 70 - 100 mg/dL 05/02/2025 9:29 PM EDT [facility] Sample Type Capillary 05/02/2025 9:29 PM EDT [facility] Patient Status Non-Critical Patient 05/02/2025 9:29 PM EDT [facility] Blood BLOOD SPECIMEN / Unknown 05/02/2025 9:27 PM EDT 05/02/2025 9:29 PM EDT us Marcell Aguirre MD POINT OF CARE TEST ORDERABLES Final Result [facility] [address] [place] [address] * (ABNORMAL) GLUCOSE METER POC (05/02/2025 5:04 PM EDT) Glucose Meter POC 172(H) 70 - 100 mg/dL 05/02/2025 5:05 PM EDT [facility] Sample Type Capillary 05/02/2025 5:05 PM EDT [facility] Patient Status Non-Critical Patient 05/02/2025 5:05 PM EDT [facility] Blood BLOOD SPECIMEN / Unknown 05/02/2025 5:04 PM EDT 05/02/2025 5:05 PM EDT us Marcell Aguirre MD POINT OF CARE TEST ORDERABLES Final Result Performing Organization Address City/[facility]/[place] [address] * (ABNORMAL) GLUCOSE METER POC (05/02/2025 1:03 PM EDT) Glucose Meter POC 110(H) 70 - 100 mg/dL 05/02/2025 1:04 PM EDT [facility] Sample Type Capillary 05/02/2025 1:04 PM EDT [facility] Patient Status Non-Critical Patient 05/02/2025 1:04 PM EDT [facility] Blood BLOOD SPECIMEN / Unknown 05/02/2025 1:03 PM EDT 05/02/2025 1:04 PM EDT us Marcell Aguirre MD POINT OF CARE TEST [place] [address] * [facility] LOWER EXTREMITY ARTERIAL DUPLEX COMPLETE (05/02/2025 11:07 AM EDT) Anatomical Region Laterality Modality Vascular, Leg Vascular Imaging 05/02/2025 9:46 AM EDT Impressions 05/03/2025 9:38 AM EDT Conclusions * Triphasic Doppler flow pattern is noted in the right and left common femoral artery. * 20-49% stenosis right common femoral artery. * 20-49% stenosis proximal profunda artery. * 50-99% stenosis right proximal and mid SFA. * 50-99% stenosis right proximal anterior tibial artery. 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 * 50-99% stenosis left proximal/mid SFA. * 20-49% stenosis left distal SFA. * Occlusion left posterior tibial artery. * The great toe PPG waveform is absent. * There is a left TMA. * The right anterior tibial artery is non-compressible. * RABI: 0.50. * LABI: 1.35. * The right FERNIE is in the severe claudication range and the left FERNIE is in the normal range, however ABIs may be falsely elevated and unreliable secondary to calcified arterial andino. Narrative Procedure Note Wood Collins MD - 05/03/2025 IMPRESSION Conclusions * Triphasic Doppler flow pattern is noted in the right and left common femoral artery. * 20-49% stenosis right common femoral artery. * 20-49% stenosis proximal profunda artery. * 50-99% stenosis right proximal and mid SFA. * 50-99% stenosis right proximal anterior tibial artery. 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 * 50-99% stenosis left proximal/mid SFA. * 20-49% stenosis left distal SFA. * Occlusion left posterior tibial artery. * The great toe PPG waveform is absent. * There is a left TMA. * The right anterior tibial artery is non-compressible. * RABI: 0.50. * LABI: 1.35. * The right FERNIE is in the severe claudication range and the left FERNIE isin the normal range, however ABIs may be falsely elevated and unreliable secondary to calcified arterial andino. us Jovanni J Montesinos COIN COLLECTOR IMG VASCULAR ORDERABLES Fin al Result * (ABNORMAL) CBC (05/02/2025 8:31 AM EDT) WBC 3.8 3.7 - 10.3 x10(3)/mcL 05/02/2025 8:57 AM EDT [facility] RBC 2.23(L) 3.90 - 5.20 x10(6)/mcL 05/02/2025 8:57 AM EDT [facility] Hgb 8.2(L) 11.2 - 15.7 g/dL 05/02/2025 8:57 AM EDT [facility] Hct 25.2(L) 34.0 - 45.0 % 05/02/2025 8:57 AM EDT [facility] MCV 113.0(H) 80.0 - 100.0 fL 05/02/2025 8:57 AM EDT [facility] MCH 36.8(H) 26.0 - 34.0 pg 05/02/2025 8:57 AM EDT [facility] MCHC 32.5 30.7 - 35.5 g/dL 05/02/2025 8:57 AM EDT [facility] RDW 17.5(H) <=14.9 % 05/02/2025 8:57 AM EDT [facility] Platelet 81(L) 155 - 369 x10(3)/mcL 05/02/2025 8:57 AM EDT [facility] MPV 12.6(H) 8.8 - 12.5 fL 05/02/2025 8:57 AM EDT [facility] Blood VENOUS BLOOD / Unknown Venipuncture / Unknown 05/02/2025 8:31 AM EDT 05/02/2025 8:36 AM EDT us Rajendra Cade (Alexandre) Malinda ESCBOEDO HEMATOLOGY NILAM BUTT Final Result [facility] [address] [facility] , [place] [address] * (ABNORMAL) BASIC METABOLIC PANEL (05/02/2025 8:30 AM EDT) Sodium 137 136 - 145 mmol/L 05/02/2025 9:21 AM EDT [facility] Potassium 3.9 3.5 - 5.0 mmol/L 05/02/2025 9:21 AM EDT [facility] Chloride 104 98 - 107 mmol/L 05/02/2025 9:21 AM EDT [facility] Total CO2 23 22 - 29 mmol/L 05/02/2025 9:21 AM EDT [facility] Anion Gap 10 7 - 16 mmol/L 05/02/2025 9:21 AM EDT [facility] Calcium 8.3(L) 8.8 - 10.4 mg/dL 05/02/2025 9:21 AM EDT [facility] Glucose Lvl 111(H) 70 - 99 mg/dL 05/02/2025 9:21 AM EDT [facility] BUN 27(H) 8 - 23 mg/dL 05/02/2025 9:21 AM EDT [facility] Creatinine 0.96 0.51 - 1.30 mg/dL 05/02/2025 9:21 AM EDT [facility] eGFR (CKD-EPIcr 2020) 58(L) >=60 mL/min/1.7 3 m2 05/02/2025 9:21 AM EDT [facility] Comment:Estimated GFR was ca lculated using the CKD-EPIcr (2020) equation refit without race. The equation is recommended by the [employer] - [place] [employer] Neph[employer] Task Force. Blood VENOUS BLOOD / Unknown Venipuncture / Unknown 05/02/2025 8:30 AM EDT 05/02/2025 8:36 AM EDT us Donnie Kaur MD CHEMISTRY ORDERABLES Final Result [facility] [address] [facility] , [place] [address] * ECG AND WAVEFORMS - TELEMETRY (05/02/2025 8:06 AM EDT) ECG INTERPRET Atrial Fib [facility] Comment:Controlled 05/02/2025 8:06 AM EDT Narrative [facility] - 05/02/2025 8:10 AM EDT ROUTINE//AC See Clinical Report link for waveform capture us Unknown Provider POINT OF CARE CARDIOLOGY Final Result Performing Organization Address City/[facility]/ZIP Co de Phone Number [facility] [address] [place] [phone] * (ABNORMAL) GLUCOSE METER POC (05/01/2025 9:05 PM EDT) [facility] Glucose Meter POC 145(H) 70 - 100 mg/dL 05/01/2025 9:07 PM EDT [facility] Sample Type Capillary 05/01/2025 9:07 PM EDT [facility] Patient Status Non-Critical Patient 05/01/2025 9:07 PM EDT [facility] Blood BLOOD SPECIMEN / Unknown 05/01/2025 9:05 PM EDT 05/01/2025 9:07 PM EDT us Marcell Aguirre MD POINT OF CARE TEST ORDERABLES Final Result Performing Organization Address [facility] Co de Phone Number [facility] [address] [place] [phone] * ECG AND WAVEFORMS - TELEMETRY (05/01/2025 7:56 PM EDT) ECG INTERPRET Atrial Fib [facility] 05/01/2025 7:56 PM EDT Narrative [facility] - 05/01/2025 7:57 PM EDT ROUTINE/MS QRS 0.09 See Clinical Report link for waveform capture us Unknown Provider POINT OF CARE CARDIOLOGY Final Result Performing Organization Address [facility] Co de Phone Number [facility] [address] [place], [place] [phone] * (ABNORMAL) GLUCOSE METER POC (05/01/2025 4:53 PM EDT) Glucose Meter POC 188(H) 70 - 100 mg/dL 05/01/2025 4:55 PM EDT [facility] Sample Type Capillary 05/01/2025 4:55 PM EDT [facility] Patient Status Non-Critical Patient 05/01/2025 4:55 PM EDT [facility] Blood BLOOD SPECIMEN / Unknown 05/01/2025 4:53 PM EDT 05/01/2025 4:55 PM EDT us Marcell Aguirre MD POINT OF CARE TEST ORDERABLES Final Result Performing Organization Address City/[facility]/[place] [address] * GLUCOSE METER POC (05/01/2025 11:21 AM EDT) Glucose Meter POC 100 70 - 100 mg/dL 05/01/2025 11:22 AM EDT [facility] Sample Type Capillary 05/01/2025 11:22 AM EDT [facility] Patient Status Non-Critical Patient 05/01/2025 11:22 AM EDT [facility] Blood BLOOD SPECIMEN / Unknown 05/01/2025 11:21 AM EDT 05/01/2025 11:22 AM EDT Marcell Aguirre MD POINT OF CARE TEST ORDERABLES Final Result Performing Organization Address City/[facility]/ZIP Co de Phone Number [address] [address] * (ABNORMAL) GLUCOSE METER POC (05/01/2025 9:10 AM EDT) Glucose Meter POC 101(H) 70 - 100 mg/dL 05/01/2025 9:11 AM EDT [facility] Sample Type Capillary 05/01/2025 9:11 AM EDT [facility] Patient Status Non-Critical Patient 05/01/2025 9:11 AM EDT [facility] Blood BLOOD SPECIMEN / Unknown 05/01/2025 9:10 AM EDT 05/01/2025 9:11 AM EDT Marcell Aguirre MD POINT OF CARE TEST ORDERABLES Final Result [place] [id number] * (ABNORMAL) CBC (05/01/2025 7:57 AM EDT) WBC 3.7 3.7 - 10.3 x10(3)/mcL 05/01/2025 8:31 AM EDT [facility] RBC 2.31(L) 3.90 - 5.20 x10(6)/mcL 05/01/2025 8:31 AM EDT [facility] Hgb 8.5(L) 11.2 - 15.7 g/dL 05/01/2025 8:31 AM EDT [facility] Hct 26.0(L) 34.0 - 45.0 % 05/01/2025 8:31 AM EDT [facility] MCV 112.6(H) 80.0 - 100.0 fL 05/01/2025 8:31 AM EDT [facility] MCH 36.8(H) 26.0 - 34.0 pg 05/01/2025 8:31 AM EDT [facility] MCHC 32.7 30.7 - 35.5 g/dL 05/01/2025 8:31 AM EDT [facility] RDW 17.5(H) <=14.9 % 05/01/2025 8:31 AM EDT [facility] Platelet 88(L) 155 - 369 x10(3)/mcL 05/01/2025 8:31 AM EDT [facility] MPV 12.3 8.8 - 12.5 fL 05/01/2025 8:31 AM EDT [facility] Blood VENOUS BLOOD / Unknown Venipuncture / Unknown 05/01/2025 7:57 AM EDT 05/01/2025 8:01 AM EDT us Rajendra Cade (Alexandre) Malinda [facility] NILAM BUTT Final Result Performing Organization Address City/[facility]/ZIP Co de Phone Number [facility] [facility] [address] [facility], [place] [address] * ECG AND WAVEFORMS - TELEMETRY (05/01/2025 7:00 AM EDT) ECG INTERPRET Atrial Fib [facility] Comment:controlled 05/01/2025 7:00 AM EDT Narrative [facility] - 05/01/2025 9:27 AM EDT ROUTINE SDP QRS 0.08 QT 0.36 See Clinical Report link for waveform capture us Unknown Provider POINT OF CARE CARDIOLOGY Final Result Performing Organization Address [facility] Co de Phone Number [facility] [address] [place] [phone] * (ABNORMAL) BASIC METABOLIC PANEL (05/01/2025 6:21 AM EDT) Sodium 136 136 - 145 mmol/L 05/01/2025 6:58 AM EDT [facility] Potassium 4.4 3.5 - 5.0 mmol/L 05/01/2025 6:58 AM EDT [facility] Chloride 104 98 - 107 mmol/L 05/01/2025 6:58 AM EDT [facility] Total CO2 23 22 - 29 mmol/L 05/01/2025 6:58 AM EDT [facility] Anion Gap 9 7 - 16 mmol/L 05/01/2025 6:58 AM EDT [facility] Calcium 8.3(L) 8.8 - 10.4 mg/dL 05/01/2025 6:58 AM EDT [facility] Glucose Lvl 107(H) 70 - 99 mg/dL 05/01/2025 6:58 AM EDT [facility] BUN 33(H) 8 - 23 mg/dL 05/01/2025 6:58 AM EDT [facility] Creatinine 0.97 0.51 - 1.30 mg/dL 05/01/2025 6:58 AM EDT [facility] eGFR (CKD-EPIcr 2020) 57(L) >=60 mL/min/1.7 3 m2 05/01/2025 6:58 AM EDT [facility] Comment:Estimated GFR was ca lculated using the CKD-EPIcr (2020) equation refit without race. The equation is recommended by the National Kidney [employer] - [place] [employer] Neph[employer] Task Force. Blood VENOUS BLOOD / Unknown Venipuncture / Unknown 05/01/2025 6:21 AM EDT 05/01/2025 6:26 AM EDT us Donnie Kaur MD CHEMISTRY ORDERABLES Final Result Performing Organization Address City/[facility] Co de Phone Number [facility] [address], [address] [place] [phone] * ECG AND WAVEFORMS - TELEMETRY (05/01/2025 5:12 AM EDT) ECG INTERPRET Atrial Fib [facility] 05/01/2025 5:12 AM EDT Narrative [facility] - 05/01/2025 5:13 AM EDT W/PVC'S/ROUTINE/JF QRS 0.11 See Clinical Report link for waveform capture us Unknown Provider POINT OF CARE CARDIOLOGY Final Result Performing Organization Address [facility] Co de Phone Number [facility] [address] [place] [address] * ECG AND WAVEFORMS - TELEMETRY (04/30/2025 11:29 PM EDT) ECG INTERPRET Sinus Tachycardia [facility] 04/30/2025 11:2 9 PM EDT Narrative [facility] - 04/30/2025 11:31 PM EDT NEW ADMIT/JF GA 0.11 QRS 0.08 RR 0.47 QT 0.28 QTc 0.41 See Clinical Report link for waveform capture us Unknown Provider POINT OF CARE CARDIOLOGY Final Result Performing Organization Address [facility] Co de Phone Number [facility] [address] [place] [phone] * (ABNORMAL) GLUCOSE METER POC (04/30/2025 10:09 PM EDT) [facility] Glucose Meter POC 117(H) 70 - 100 mg/dL 04/30/2025 10:11 PM EDT [facility] Sample Type Capillary 04/30/2025 10:11 PM EDT [facility] Patient Status Non-Critical Patient 04/30/2025 10:11 PM EDT [facility] Blood BLOOD SPECIMEN / Unknown 04/30/2025 10:09 PM EDT 04/30/2025 10:11 PM EDT us Marcell Aguirre MD POINT OF CARE TEST ORDERABLES Final Result Performing Organization Address [facility]/ZIP Co de Phone Number [facility] [address] [place] [address] * REPEAT LACTIC ACID (04/30/2025 7:30 PM EDT) [facility] Lactic Acid 1.3 0.5 - 1.9 mmol/L 04/30/2025 8:06 PM EDT [facility] Blood VENOUS BLOOD / Unknown Venipuncture / Unknown 04/30/2025 7:30 PM EDT 04/30/2025 7:57 PM EDT us Donnie Kaur MD CHEMISTRY ORDERABLES Final Result [facility] [address] [place] [phone] * (ABNORMAL) BLOOD GAS, VENOUS (04/30/2025 5:56 PM EDT) [facility] pH Venous 7.39 7.32 - 7.42 pH 04/30/2025 6:05 PM EDT [facility] pCO2 Venous 45 41 - 51 mmHg 04/30/2025 6:05 PM EDT [facility] pO2 Venous <42(H) 25 - 40 mmHg 04/30/2025 6:05 PM EDT [facility] Comment:Interpret with cauti on. Not recommended to evaluate patient's oxygenation status. Base Excess Martín 1.4 mmol/L 6:05 PM EDT [facility], [facility] Hco3 Venous 26.3 24.0 - 28.0 mmol/L 04/30/2025 6:05 PM EDT [facility], [facility] CO2 Total Martín 24(L) 25 - 29 mmol/L 04/30/2025 6:05 PM EDT [facility] O2 Sat. Venous 20.2(L) 40.0 - 70.0 % 04/30/2025 6:05 PM EDT [facility], [facility] Inspired O2 RA 04/30/2025 6:05 PM EDT [facility], [facility] Blood VENOUS BLOOD / Unknown Venipuncture / Unknown 04/30/2025 5:56 PM EDT 04/30/2025 6:03 PM EDT Donnie Kaur MD CHEMISTRY ORDERABLES Final Result Performing Organization Address [facility] Co de Phone Number [address] , [place] [address] * BLOOD CULTURE (NO STAIN) (04/30/2025 5:56 PM EDT) Culture Result No Growth at 120 hours. BLOOD CULTURE (NO STAIN) 05/06/2025 7:00 AM EDT [facility], [facility] Blood VENOUS BLOOD / Unknown Venipuncture / Unknown 04/30/2025 5:56 PM EDT 04/30/2025 6:01 PM EDT Donnie Kaur MD MICROBIOLOGY - GENERA L ORDERABLES Final Result Performing Organization Address [facility]/ZIP Co de Phone Number [address] , [place] [address] * BLOOD CULTURE (NO STAIN) (04/30/2025 5:56 PM EDT) Culture Result No Growth at 120 hours. BLOOD CULTURE (NO STAIN) 05/06/2025 7:00 AM EDT [facility] Blood VENOUS BLOOD / Unknown Venipuncture / Unknown 04/30/2025 5:56 PM EDT 04/30/2025 6:03 PM EDT us Donnie Kaur MD MICROBIOLOGY - GENERA L ORDERABLES Final Result [facility] [address] [facility] , [place] [address] * XR FOOT LEFT AP LATERAL AND OBLIQUE (04/30/2025 5:45 PM EDT) Anatomical Region Laterality Modality Foot Radiographic Barbie ging 04/30/2025 5:45 PM EDT Impressions 04/30/2025 6:03 PM EDT No radiographic evidence of recurrent osteomyelitis. - Note: Radiology results need to be interpreted within a comprehensive clinical context. If you have questions about the radiology report, please contact the office of the ordering clinician. Narrative 04/30/2025 6:03 PM EDT XR FOOT LEFT AP LATERAL AND OBLIQUE, 04/30/2025 5:45 PM CLINICAL HISTORY: -Wound dehiscence. Assess for osteomyelitis. COMPARISON: 03/09/2025. 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 No obvious underlying cortical bone irregularity to suggest recurrent osteomyelitis. Diffuse arterial calcifications. Procedure Note Reuben Lovell MD - 04/30/2025 XR FOOT LEFT AP LATERAL AND OBLIQUE, 04/30/2025 5:45 PM CLINICAL HISTORY: -Wound dehiscence. Assess for osteomyelitis. COMPARISON: 03/09/2025. PROCEDURE COMMENTS: XR FOOT LEFT AP LATERAL AND OBLIQUE FINDINGS: Progression of transmetatarsal amputation of the foot nowending proximally with overlying soft tissue swelling and gas. No obvious underlying cortical bone irregularity to suggest recurrent osteomyelitis. Diffuse arterial calcifications. IMPRESSION: No radiographic evidence of recurrent osteomyelitis. - Note: Radiology results need to be interpreted within a comprehensiveclinical context. If you have questions about the radiology report, please contactthe office of the ordering clinician. Donnie Kaur MD [facility] ORDERABLES Final Result * XR CHEST AP PORTABLE (04/30/2025 5:32 PM EDT) Anatomical Region Laterality Modality Chest Radiographic Babrie ging 04/30/2025 5:32 PM EDT Impressions 04/30/2025 5:58 PM EDT No acute finding. - Note: Radiology results need to be interpreted within a comprehensive clinical context. If you have questions about the radiology report, please contact the office of the ordering clinician. Narrative 04/30/2025 5:58 PM EDT XR CHEST AP PORTABLE, 04/30/2025 5:32 PM CLINICAL HISTORY: -sepsis COMPARISON: 01/09/2025. PROCEDURE COMMENTS: AP portable technique. FINDINGS: Support devices: No visible support devices. Heart and mediastinal contours are stable. No active failure, pneumonia, or visible effusion. No visible pneumothorax. Procedure Note Reuben Lovell MD - 04/30/2025 XR CHEST AP PORTABLE, 04/30/2025 5:32 PM CLINICAL HISTORY: -sepsis COMPARISON: 01/09/2025. PROCEDURE COMMENTS: AP portable technique. FINDINGS: Support devices: No visible support devices. Heart and mediastinal contours are stable. No active failure, pneumonia,or visible effusion. No visible pneumothorax. IMPRESSION: No acute finding. - Note: Radiology results need to be interpreted within a comprehensiveclinical context. If you have questions about the radiology report, please contactthe office of the ordering clinician. Donnie Kaur MD [facility] ORDERABLES Final Result * C-REACTIVE PROTEIN (04/30/2025 5:15 PM EDT) CRP <3.00 <=5.00 mg/L 04/30/2025 6:08 PM EDT [facility] Blood VENOUS BLOOD / Unknown Venipuncture / Unknown 04/30/2025 5:15 PM EDT 04/30/2025 5:29 PM EDT Donnie Kaur MD CHEMISTRY ORDERABLES Final Result Performing Organization Address City/[facility]/ZIP Co de Phone Number [facility] [address] , [place] [address] * SEDIMENTATION RATE AUTOMATED (04/30/2025 5:15 PM EDT) Sed Rate 9 0 - 30 mm/hr 04/30/2025 5:42 PM EDT [facility] Blood VENOUS BLOOD / Unknown Venipuncture / Unknown 04/30/2025 5:15 PM EDT 04/30/2025 5:29 PM EDT Donnie Kaur MD HEMATOLOGY ORDERABLES Final Result Performing Organization Address [facility] Co de Phone Number [facility] [address] [place] [address], [place] [address] * PROCALCITONIN (04/30/2025 5:15 PM EDT) Procalcitonin <0.05 <=0.49 ng/mL 04/30/2025 6:15 PM EDT [facility] Blood VENOUS BLOOD / Unknown Venipuncture / Unknown 04/30/2025 5:15 PM EDT 04/30/2025 5:29 PM EDT Narrative [facility] - 04/30/2025 6:15 PM EDT Procalcitonin <0.50 ng/mL: Procalcitonin levels below 0.50 ng/mL on the first day of ICU admission represent a low risk for progression to severe sepsis and/or septic shock Procalcitonin >=0.50 ng/mL and <=2.00 ng/mL: If the procalcitonin measurement is performed shortly after the systemic infection process has started (usually less than 6 hours), this value may still be low. As various non-infectious conditions are known to induce procalcitonin as well, procalcitonin levels between 0.50 ng/mL and 2.00 ng/mL should be reviewed carefully to take into account the specific clinical background and condition(s) of the patient. Procalcitonin >2.00 ng/mL: Procalcitonin levels above 2.00 ng/mL on the first day of ICU admission represent a high risk for progression to severe sepsis and/or septic shock. Donnie Kaur MD CHEMISTRY ORDERABLES Final Result Performing Organization Address [facility]/ZIP Co de Phone Number [facility] [address] [facility], [place] [address] * (ABNORMAL) LACTIC ACID (04/30/2025 5:15 PM EDT) Lactic Acid 2.3(H) 0.5 - 1.9 mmol/L 04/30/2025 5:39 PM EDT [facility] Blood VENOUS BLOOD / Unknown Venipuncture / Unknown 04/30/2025 5:15 PM EDT 04/30/2025 5:25 PM EDT Donnie Kaur MD CHEMISTRY ORDERABLES Final Result Performing Organization Address [facility] de Phone Number [address] [address] * (ABNORMAL) COMPREHENSIVE METABOLIC PANEL (04/30/2025 5:15 PM EDT) Pathologist [facility] Sodium 136 136 - 145 mmol/L 04/30/2025 5:43 PM EDT [facility] Potassium 4.1 3.5 - 5.0 mmol/L 04/30/2025 5:43 PM EDT [facility] Chloride 101 98 - 107 mmol/L 04/30/2025 5:43 PM EDT [facility] Total CO2 21(L) 22 - 29 mmol/L 04/30/2025 5:43 PM EDT [facility] Anion Gap 14 7 - 16 mmol/L 04/30/2025 5:43 PM EDT [facility] Calcium 8.6(L) 8.8 - 10.4 mg/dL 04/30/2025 5:43 PM EDT [facility] Glucose Lvl 119(H) 70 - 99 mg/dL 04/30/2025 5:43 PM EDT [facility] BUN 36(H) 8 - 23 mg/dL 04/30/2025 5:43 PM EDT [facility] Creatinine 1.05 0.51 - 1.30 mg/dL 04/30/2025 5:43 PM EDT [facility] Albumin 3.9 3.2 - 4.6 gm/dL 04/30/2025 5:43 PM EDT [facility] Total Protein 7.5 6.4 - 8.3 gm/dL 04/30/2025 5:43 PM EDT [facility] Bili Total 0.7 0.2 - 1.3 mg/dL 04/30/2025 5:43 PM EDT [facility] ALT 16 <=41 U/L 04/30/2025 5:43 PM EDT [facility] AST 18 <=40 U/L 04/30/2025 5:43 PM EDT [facility] Alk Phos 96 36 - 123 U/L 04/30/2025 5:43 PM EDT [facility] eGFR (CKD-EPIcr 2020) 52(L) >=60 mL/min/1.7 3 m2 04/30/2025 5:43 PM EDT [facility] Comment:Estimated GFR was ca lculated using the CKD-EPIcr (2020) equation refit without race. The equation is recommended by the National Kidney [employer] - [place] [employer] Nephrology Task Force. Blood VENOUS BLOOD / Unknown Venipuncture / Unknown 04/30/2025 5:15 PM EDT 04/30/2025 5:25 PM EDT us Donnie Kaur MD CHEMISTRY ORDERABLES Final Result [facility] [address] [place] [address] * (ABNORMAL) CBC WITH DIFF (04/30/2025 5:15 PM EDT) WBC 5.1 3.7 - 10.3 x10(3)/mcL 04/30/2025 5:29 PM EDT [facility] RBC 2.64(L) 3.90 - 5.20 x10(6)/mcL 04/30/2025 5:29 PM EDT [facility] Hgb 10.0(L) 11.2 - 15.7 g/dL 04/30/2025 5:29 PM EDT [facility] Hct 30.5(L) 34.0 - 45.0 % 04/30/2025 5:29 PM EDT [facility] MCV 115.5(H) 80.0 - 100.0 fL 04/30/2025 5:29 PM EDT [facility] MCH 37.9(H) 26.0 - 34.0 pg 04/30/2025 5:29 PM EDT [facility] MCHC 32.8 30.7 - 35.5 g/dL 04/30/2025 5:29 PM EDT [facility] RDW 17.6(H) <=14.9 % 04/30/2025 5:29 PM EDT [facility] Platelet 108(L) 155 - 369 x10(3)/mcL 04/30/2025 5:29 PM EDT [facility] MPV 12.3 8.8 - 12.5 fL 04/30/2025 5:29 PM EDT [facility] Neut Percent 56.9 % 04/30/2025 5:29 PM EDT [facility] Comment:Neutrophils equals s egs plus bands Imm Gran% 0.4 % 04/30/2025 5:29 PM EDT [facility] Comment:Automated count of m etamyelocytes, myelocytes and promyelocytes. Lymph Percent 33.9 % 04/30/2025 5:29 PM EDT [facility] Carver Percent 8.6 % 04/30/2025 5:29 PM EDT [facility] Eos Percent 0.0 % 04/30/2025 5:29 PM EDT [facility] Baso Percent 0.2 % 04/30/2025 5:29 PM EDT [facility] Neut # 2.9 1.6 - 6.1 x10(3)/mcL 04/30/2025 5:29 PM EDT [facility] Comment:Neutrophils equals s egs plus bands IMMGRAN# 0.0 0.0 - 0.1 x10(3)/[facility] 04/30/2025 5:29 PM EDT [facility] Comment:Automated count of m etamyelocytes, myelocytes and promyelocytes. An absolute IG <0.1 is reported as 0.0. Lymph # 1.7 1.2 - 3.9 x10(3)/mcL 04/30/2025 5:29 PM EDT [facility] Carver # 0.4 0.3 - 0.9 x10(3)/[facility] 04/30/2025 5:29 PM EDT [facility] Eos# 0.0 0.0 - 0.5 x10(3)/[facility] 04/30/2025 5:29 PM EDT [facility] Baso # 0.0 0.0 - 0.1 x10(3)/[facility] 04/30/2025 5:29 PM EDT [facility] Blood VENOUS BLOOD / Unknown Venipuncture / Unknown 04/30/2025 5:15 PM EDT 04/30/2025 5:25 PM EDT us Donnie Kaur MD HEMATOLOGY ORDERABLES Final Result Performing Organization Address City/State/[facility] Co de Phone Number [facility] [address] [place] [phone] * EK EKG 12 LEAD (04/30/2025 4:18 PM EDT) Anatomical Region Laterality Modality Electrocardiogra phy 04/30/2025 4:28 PM EDT Impressions 04/30/2025 10:[address] [facility] Test Date: 2025-04-30 Pat Name: SKYLER NICOLEVAN Department: DEPID Room: 3326 Gender: Female Directory Carrier: CHANTEL : 1940 Requested By: DONNIE PLUMMER Order Number: [id number] Reading MD: Isidro Kennedy Measurements Intervals Cecil Rate: 134 P: 203 GA: 145 QRS: -6 QRSD: 93 T: -78 QT: 333 QTc: 499 Interpretive Statements SINUS TACHYCARDIA NONSPECIFIC ST & T-WAVE ABNORMALITY Electronically Signed On 04-30-2025 22:14:02 EDT by Isidro Kennedy Narrative Procedure Note Isidro Kennedy MD - 04/30/2025 MICHELINE Stover Test Date: 2025-04-30 Pat Name: SKYLER BAUTISTA Department: DEPID Room: [facility] Gender: Female Directory Carrier: CHANTEL : 1940 Requested By: DONNIE ARRIOLA Order Number: [id number] Reading MD: Isidro Kennedy Measurements Intervals Cecil Rate: 134 P: 203 GA: 145 QRS: -6 QRSD: 93 T: -78 QT: 333 QTc: 499 Interpretive Statements SINUS TACHYCARDIA NONSPECIFIC ST & T-WAVE ABNORMALITY Electronically Signed On 04-30-2025 22:14:02 EDT by Isidro Kennedy Donnie Kaur MD IMG ECG ORDERABLES Fi nal Result documented in this encounter Visit Diagnoses Diagnosis Diabetic foot infection (HCC)- Primary Type II or unspecified type diabetes mellitus with other specified manifestations, not stated as uncontrolled Wound dehiscence Disruption of external operation (surgical) wound Typical atrial flutter (HCC) Atrial flutter Left foot pain Pain in limb PAD (peripheral artery disease) Unspecified disorders of arteries and arterioles Critical limb ischemia of left lower extremity (HCC) Preop testing Preoperative examination, unspecified Paroxysmal atrial fibrillation (HCC) Atrial fibrillation Hypertension associated with diabetes (HCC) Type II or unspecified type diabetes mellitus with other specified manifestations, not stated as uncontrolled Acute on chronic heart failure with preserved ejection fraction (HCC) PAD (peripheral artery disease) Unspecified disorders of arteries and arterioles Stage 3a chronic kidney disease (HCC) 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 Coronary atherosclerosis of [place] coronary artery Type 2 diabetes mellitus, without long-term current use of insulin (HCC) Wound dehiscence Disruption of external operation (surgical) wound Anemia in other chronic diseases classified elsewhere Palliative care by specialist Goals of care, counseling/discussion Other specified counseling Critical limb ischemia of left lower extremity (HCC) Pancytopenia (HCC) Other pancytopenia Acute respiratory failure with hypoxemia (HCC) Acute pulmonary edema (HCC) Acute edema of lung, unspecified Hypotension Hypotension, unspecified Metabolic encephalopathy Acute cystitis without hematuria Acute cystitis Acute heart failure with preserved ejection fraction (HCC) Hyponatremia Hyposmolality and/or hyponatremia Preop testing- Primary Preoperative examination, unspecified Anemia, unspecified type PAD (peripheral artery disease) Unspecified disorders of arteries and arterioles Critical limb ischemia of left lower extremity (HCC) documented in this encounter Admitting Diagnoses Diagnosis Wound dehiscence Disruption of external operation (surgical) wound Diabetic foot infection (HCC) Type II or unspecified type diabetes mellitus with other specified manifestations, not stated as uncontrolled Critical limb ischemia of left lower extremity (HCC) documented in this encounter Administered Medications Inactive Administered Medications - up to 1 most recent administrations Medication Order MAR Action Action Date Dose Rate Site 0.9 % NaCl infusion Intravenous, at 75 mL/hr, CONTINUOUS, Starting on Tue05/26/25 at 1300, Until Tue05/26/25 at 1713 Rate/Dose Verify 05/26/2025 3:45 PM EDT 75 mL/hr 0.9 % NaCl infusion Intravenous, at 10 mL/hr, CONTINUOUS PRN, Starting on Tue05/26/25 at 1551, Until Tue05/28/25 at 2048, Used as needed for secondary medication administration. Do not discontinue primary IVF., Critical Care IV Restarted 05/27/2025 6:06 PM EDT 10 mL/hr 0.9 % NaCl infusion Intravenous, at 75 mL/hr, CONTINUOUS, Starting on Tue05/29/25 at 0800, Until Tue05/29/25 at 1959 New Bag 05/29/2025 7:28 AM EDT 75 mL/hr acetaminophen (OFIRMEV) 1,000 mg/100 mL (10 mg/mL) infusion 1 dose, Starting on Tue05/26/25 at 1931, Until Tue05/26/25 at 2000, Created by cabinet override Maximum adult dose of acetaminophen is 4000 mg from all sources in 24 hours. acetaminophen (OFIRMEV) infusion 1,000 mg 1,000 mg, Intravenous, ONCE, 1 dose, On Tue05/24/25 at 1315, Administer over 15 Minutes, Maximum adult dose of acetaminophen is 4000 mg from all sources in 24 hours. IV Started 05/24/2025 1:31 PM EDT 1,000 mg 400 mL/hr acetaminophen (OFIRMEV) infusion 1,000 mg 1,000 mg, Intravenous, ONCE, 1 dose, On Tue05/26/25 at 1215, Administer over 15 Minutes, Maximum adult dose of acetaminophen is 4000 mg from all sources in 24 hours. IV Started 05/26/2025 11:05 AM EDT 1,000 mg 400 mL/hr acetaminophen (OFIRMEV) infusion 1,000 mg 1,000 mg, Intravenous, EVERY 6 HOURS PRN, Starting on Tue05/26/25 at 1551, Until Arlene 06/06/25 at 1043, Pain, Fever, Temp greater than 102 F, Administer over 15 Minutes, Maximum adult dose of acetaminophen is 4000 mg from all sources in 24 hours. IV Started 05/27/2025 5:16 AM EDT 1,000 mg 400 mL/hr acetaminophen (TYLENOL) suppository 650 mg 650 mg, Rectal, EVERY 4 HOURS PRN, Starting on Tue05/26/25 at 1551, Until 06/10/25 at 2012, Pain, Fever, Temp greater than 102 F, Maximum adult dose of acetaminophen is 4000 mg from all sources in 24 hours. acetaminophen (TYLENOL) tablet 1,000 mg 1,000 mg, Oral, PREPROCEDURE, 1 dose, Starting on Tue05/07/25 at 0811, Until Tue05/19/25 at 0042, Coanalgesic, Do not give if patient received acetaminophen within the last 6 hours Maximum adult dose of acetaminophen is 4000 mg from all sources in 24 hours., Pre-op ([place]/[facility] Meds) Given 05/19/2025 12:42 AM EDT 1,000 mg acetaminophen (TYLENOL) tablet 650 mg 650 mg, Oral, ONCE, 1 dose, On Tue04/30/25 at 1745, Maximum adult dose of acetaminophen is 4000 mg from all sources in 24 hours. Given 04/30/2025 6:19 PM EDT 650 mg acetaminophen (TYLENOL) tablet 650 mg 650 mg, Oral, EVERY 4 HOURS PRN, Starting on Tue04/30/25 at 2047, Until 05/26/25 at 1553, Pain, Fever, Maximum adult dose of acetaminophen is 4000 mg from all sources in 24 hours. Given 05/24/2025 6:00 AM EDT 650 mg acetaminophen (TYLENOL) tablet 650 mg 650 mg, Oral, EVERY 4 HOURS PRN, Starting on Tue05/26/25 at 1551, Until Tue06/10/25 at 2012, Pain, Fever, Temp greater than 102 F, Maximum adult dose of acetaminophen is 4000 mg from all sources in 24 hours. Given 06/08/2025 12:48 PM EDT 650 mg acetaminophen (TYLENOL) tablet 650 mg 650 mg, Oral, 3 TIMES DAILY, First dose on Tue06/09/25 at 1400, Until Discontinued, Maximum adult dose of acetaminophen is 4000 mg from all sources in 24 hours. Given 06/10/2025 2:34 PM EDT 650 mg ALPRAZolam (XanAX) tablet 0.25 mg 0.25 mg, Oral, ONCE, 1 dose, On Tue05/24/25 at 1345 Given 05/24/2025 2:42 PM EDT 0.25 mg ALPRAZolam (XanAX) tablet 0.25 mg 0.25 mg, Oral, 2 TIMES DAILY PRN, Starting on Tue05/28/25 at 0727, Until Tue05/29/25 at 1123, Anxiety, Sleep Given 05/29/2025 12:08 AM EDT 0.25 mg ALPRAZolam (XanAX) tablet 0.5 mg 0.5 mg, Oral, ONCE, 1 dose, On Tue05/01/25 at 0115 Given 05/01/2025 12:23 AM EDT 0.5 mg ALPRAZolam (XanAX) tablet 0.5 mg 0.5 mg, Oral, NIGHTLY, First dose on Tue05/05/25 at 2100, Until Discontinued Given 05/23/2025 8:11 PM EDT 0.5 mg ALPRAZolam (XanAX) tablet 0.5 mg 0.5 mg, Oral, 2 TIMES DAILY PRN, Starting on Tue05/29/25 at 1122, Until Tue06/10/25 at 2012, Anxiety, Sleep Given 06/09/2025 8:49 PM EDT 0.5 mg ALPRAZolam (XanAX) tablet 0.5-1 mg 0.5-1 mg, Oral, NIGHTLY, First dose (after last modification) on Arlene 05/23/25 at 2230, Until Discontinued Given 05/25/2025 8:58 PM EDT 1 mg alteplase (ACTIVASE) injection 1 mg 1 mg, Intercatheter, PRN, Starting on Tue05/26/25 at 1751, Until Tue06/10/25 at 2012, Clotted line, For catheter occlusion. Instill alteplase into occluded catheter and allow to dwell for 30 minutes. If catheter function not restored, continue to dwell for an additional 90 minutes (120 minutes total). May repeat x 1 for a total of 2 mg. Contact pharmacy for dose. aluminum & magnesium hydroxide-simethicone 200-200-20 mg/5 mL suspension 30 mL 30 mL, Oral, ONCE, 1 dose, On Tue05/29/25 at 0300, Viscous lidocaine is currently on national back order. Aluminum & magnesium hydroxide-simethicone (Maalox) monotherapy has been shown to be as effective to treat epigastric pain as combination with lidocaine. Please continue with interchange to aluminum & magnesium hydroxide-simethicone (Maalox) monotherapy. Given 05/29/2025 1:32 AM EDT 30 mL atorvastatin (LIPITOR) tablet 40 mg 40 mg, Oral, NIGHTLY, First dose on Tue04/30/25 at 2300, Until Discontinued Given 06/09/2025 8:37 PM EDT 40 mg bupivacaine (MARCAINE/SENSORCAINE ) 0.5 % (5 mg/mL) injection 5-30 mL 5-30 mL, Perineural, PRN, 2 doses, Starting on Tue05/24/25 at 0717, Until Tue05/24/25 at 1546, For perineural block, For administration during pre-op peripheral block, Pre-op ([facility] Meds) Given 05/24/2025 7:46 AM EDT 30 mL Left Leg carvediloL (COREG) tablet 12.5 mg 12.5 mg, Oral, 2 TIMES DAILY, First dose on Tue04/30/25 at 2300, Until Discontinued, Hold for SBP<100 or HR<60 Take with a meal. Given 05/26/2025 9:00 AM EDT 12.5 mg carvediloL (COREG) tablet 12.5 mg 12.5 mg, Oral, 2 TIMES DAILY WITH MEALS, First dose on Tue06/03/25 at 0900, Until Discontinued, Hold for SBP<100 or HR<60 Take with a meal. Given 06/04/2025 8:57 AM EDT 12.5 mg carvediloL (COREG) tablet 25 mg 25 mg, Oral, 2 TIMES DAILY WITH MEALS, First dose (after last modification) on Tue06/04/25 at 1800, Until Discontinued, Hold for SBP<100 or HR<60 Take with a meal. Given 06/10/2025 9:03 AM EDT 25 mg ceFEPIme (MAXIPIME) 2 g in sterile water 19 mL IVP 2 g, Intravenous, *EVERY 8 HOURS, 1 dose, First dose on Tue04/30/25 at 1715, If infusing multiple antibiotics and unable to infuse concurrently, infuse before vancomycin. Draw up 19 mL of Sterile Water for Injection into syringe and inject into ceFEPIme 2 g vial. Shake vial until powder is completely dissolved. Draw up entire content of vial (about 20 mL) into syringe. Administer intravenous push (IVP) over a period of 3 to 5 minutes., Reason for Therapy: Infection Documented, Indication: Sepsis Given 04/30/2025 6:14 PM EDT 2 g ceFEPIme (MAXIPIME) 2 g/100 mL IVPB 2 g, Intravenous, EVERY 12 HOURS SCHEDULED (2 times per day), 13 doses, First dose (after last modification) on Tue05/01/25 at 0600, Last dose on Tue05/07/25 at 0900, Administer over 4 Hours, If infusing multiple antibiotics and unable to infuse concurrently, infuse before vancomycin., Reason for Therapy: Infection Documented, Indication: Sepsis Rate/Dose Verify 05/01/2025 7:44 AM EDT 25 mL/hr cosyntropin (CORTROSYN) 0.25 mg in sodium chloride 0.9% 2 mL injection 0.25 mg, Intravenous, ONCE, 1 dose, On Tue05/26/25 at 1530, Do not administer cosyntropin until AFTER baseline cortisol/ACTH has been drawn. Reconstitue 0.25 mg cosyntropin with 1 mL of 0.9% sodium chloride. Draw dose into syringe and QS to with 0.9% sodium chloride to a total volume of 2 mL. Given 05/26/2025 6:33 PM EDT 0.25 mg cyclobenzaprine (FLEXERIL) tablet 5 mg 5 mg, Oral, 2 TIMES DAILY, First dose on Tue05/24/25 at 1315, Until Discontinued Given 05/26/2025 9:00 AM EDT 5 mg dextrose 50 % solution 25 mL 25 mL, Intravenous, PRN, Starting on Tue05/28/25 at 2311, Until Tue06/10/25 at 2012, Low blood sugar, If FSBS less than 70 mg/dl and patient cannot take orally, Check FSBS every 15 minutes and repeat 25 mL of D50 IV push and notify physician if FSBS less than 70 mg/dL VESICANT docusate sodium (COLACE) capsule 100 mg 100 mg, Oral, 2 TIMES DAILY, First dose on Tue05/14/25 at 1315, Until Discontinued, Do not crush or chew. Given 05/14/2025 9:00 PM EDT 100 mg docusate sodium (COLACE) capsule 100 mg 100 mg, Oral, 2 TIMES DAILY, First dose (after last modification) on Tue05/18/25 at 2100, Until Discontinued, Do not crush or chew. Given 05/20/2025 8:11 AM EDT 100 mg docusate sodium (COLACE) capsule 100 mg 100 mg, Oral, 2 TIMES DAILY PRN, Starting on Tue05/20/25 at 1345, Until Tue06/10/25 at 2012, Constipation, Do not crush or chew. docusate sodium (COLACE) capsule 200 mg 200 mg, Oral, 2 TIMES DAILY, First dose (after last modification) on Tue05/15/25 at 2100, Until Discontinued, Do not crush or chew. Given 05/18/2025 8:48 AM EDT 200 mg dorzolamide-timoloL (COSOPT) 22.3-6.8 mg/mL ophthalmic solution 1 Drop 1 Drop, Ophthalmic, 2 TIMES DAILY, First dose on Tue04/30/25 at 2300, Until Discontinued Given 06/10/2025 9:06 AM EDT 1 Drop Both Eyes fentaNYL (SUBLIMAZE) injection 25 mcg 25 mcg, Intravenous, EVERY 5 MIN PRN, Starting on Tue05/24/25 at 1111, Until Tue05/24/25 at 1546, Pain, For initial pain. Maximum dose not to exceed 100 mcg., PACU Given 05/24/2025 12:09 PM EDT 25 mcg fentaNYL (SUBLIMAZE) injection 50 mcg 50 mcg, Intravenous, EVERY 2 HOURS PRN, Starting on Tue05/27/25 at 1110, Until Tue05/28/25 at 0727, Pain Unrelieved by Oral Opioid Therapy Given 05/28/2025 6:31 AM EDT 50 mcg fUROsemide (LASix) injection 20 mg 20 mg, Intravenous, ONCE, 1 dose, On 06/01/25 at 1730, Give IV push at 20 to 40 mg/min. MAX ADMIN RATE = 40 mg/min Given 06/01/2025 4:08 PM EDT 20 mg fUROsemide (LASix) injection 20 mg 20 mg, Intravenous, ONCE, 1 dose, On Tue06/02/25 at 1130, Give IV push at 20 to 40 mg/min. MAX ADMIN RATE = 40 mg/min Given 06/02/2025 10:20 AM EDT 20 mg fUROsemide (LASix) injection 40 mg 40 mg, Intravenous, ONCE, 1 dose, On Tue05/26/25 at 1630, Give IV push at 20 to 40 mg/min. MAX ADMIN RATE = 40 mg/min Given 05/26/2025 6:17 PM EDT 40 mg fUROsemide (LASix) injection 40 mg 40 mg, Intravenous, ONCE, 1 dose, On Tue06/03/25 at 0900, Give IV push at 20 to 40 mg/min. MAX ADMIN RATE = 40 mg/min Given 06/03/2025 10:06 AM EDT 40 mg fUROsemide (LASix) injection 40 mg 40 mg, Intravenous, ONCE, 1 dose, On Tue06/04/25 at 1530, Give IV push at 20 to 40 mg/min. MAX ADMIN RATE = 40 mg/min Given 06/04/2025 2:24 PM EDT 40 mg fUROsemide (LASix) tablet 40 mg 40 mg, Oral, DAILY, First dose on Tue06/05/25 at 1100, Until Discontinued Given 06/10/2025 9:03 AM EDT 40 mg gabapentin (NEURONTIN) capsule 300 mg 300 mg, Oral, NIGHTLY, First dose on Tue04/30/25 at 2300, Until Discontinued, Capsules may be opened and contents dissolved in water for administration Given 05/13/2025 8:59 PM EDT 300 mg gabapentin (NEURONTIN) capsule 300 mg 300 mg, Oral, 3 TIMES DAILY, First dose (after last modification) on Tue05/14/25 at 1400, Until Discontinued, Capsules may be opened and contents dissolved in water for administration Given 05/15/2025 1:14 PM EDT 300 mg gabapentin (NEURONTIN) capsule 300 mg 300 mg, Oral, NIGHTLY, First dose on Tue05/28/25 at 2100, Until Discontinued, Capsules may be opened and contents dissolved in water for administration Given 05/28/2025 10:52 PM EDT 300 mg gabapentin (NEURONTIN) capsule 300 mg 300 mg, Oral, 3 TIMES DAILY, First dose (after last modification) on Tue05/29/25 at 1400, Until Discontinued, Capsules may be opened and contents dissolved in water for administration Given 06/10/2025 2:34 PM EDT 300 mg gabapentin (NEURONTIN) capsule 400 mg 400 mg, Oral, 3 TIMES DAILY, First dose (after last modification) on Tue05/15/25 at 2100, Until Discontinued, Hold for sedation Capsules may be opened and contents dissolved in water for administration Given 05/26/2025 9:00 AM EDT 400 mg glucagon (GLUCAGEN) injection 1 mg 1 mg, Intramuscular, PRN, Starting on Tue05/28/25 at 2311, Until Tue06/10/25 at 2012, Low blood sugar, If FSBS less than 70 mg/dl, patient cannot take orally and without IV access, If patient is without IV access, give Glucagon 1 mg Intramuscularly, insert IV and call physician. GLUCERNA Therapeutic oral supplement 1 'box' 1 'box', Oral, 2 TIMES DAILY WITH MEALS (NUTR), First dose on Tue05/01/25 at 1800, Until Discontinued, strawberry Administer orally. Do not administer if NPO or on clear liquid diet. Not for IV use. Supplied by [facility] Given 05/13/2025 9:04 AM EDT 1 'box' GLUCERNA Therapeutic oral supplement 1 'box' 1 'box', Oral, EVERY MORNING (NUTR), First dose (after last modification) on Tue05/15/25 at 0900, Until Discontinued, strawberry Administer orally. Do not administer if NPO or on clear liquid diet. Not for IV use. Supplied by [facility] Given 06/10/2025 9:06 AM EDT 1 'box' HYDROmorphone (DILAUDID) injection 0.25 mg 0.25 mg, Intravenous, EVERY 10 MIN PRN, Starting on Tue05/24/25 at 1111, Until Tue05/24/25 at 1546, Breakthrough Pain, Do not exceed 2 mg in one hour unless otherwise ordered by the Anesthesia Coordinator For pain unrelieved by fentanyl or oral opioid, PACU Given 05/24/2025 12:45 PM EDT 0.25 mg HYDROmorphone (DILAUDID) injection 0.5 mg 0.5 mg, Intravenous, EVERY 4 HOURS PRN, Starting on Tue05/24/25 at 1156, Until Tue05/26/25 at 1555, Breakthrough Pain, Pain Unrelieved by Oral Opioid Therapy, ok to alternate with oxycodone so that patient receives oxycodone or dilaudid every 2 hours Given 05/24/2025 5:54 PM EDT 0.5 mg HYDROmorphone 0.2 mg/mL CERTIFIED CREDIT COUNSELOR syringe - 30 mL Intravenous, TITRATED, Starting on Tue05/28/25 at 0800, Until Tue05/28/25 at 1828, If no running IV refer to ACLIN-N-[address] the KVO panel. This infusion requires the use of portless tubing and an IV pole lock box. Lock Code for Program Changes: 2468, Mode: CERTIFIED CREDIT COUNSELOR + Continuous, Hydromorphone CERTIFIED CREDIT COUNSELOR Dose (mg): 0.1, CERTIFIED CREDIT COUNSELOR Lockout Time (minutes): 6, Hydromorphone 4 Hour Dose Limit (mg): 4, Hydromorphone Continuous (basal) Rate (mg/hr): 0.2 mg/hr New Bag 05/28/2025 10:23 AM EDT HYDROmorphone 0.2 mg/mL CERTIFIED CREDIT COUNSELOR syringe - 30 mL Intravenous, TITRATED, Starting on Tue05/28/25 at 1830, Until Tue05/29/25 at 1123, If no running IV refer to ACLIN-N-[address] the KVO panel. This infusion requires the use of portless tubing and an IV pole lock box. Lock Code for Program Changes: 2468, Mode: CERTIFIED CREDIT COUNSELOR, Hydromorphone CERTIFIED CREDIT COUNSELOR Dose (mg): 0.1, CERTIFIED CREDIT COUNSELOR Lockout Time (minutes): 6, Hydromorphone 4 Hour Dose Limit (mg): 4 Rate/Dose Verify 05/29/2025 7:29 AM EDT 0.1 mg/hr 0.5 mL/hr insulin aspart U-100 (NovoLOG) injection 1-10 Units 1-10 Units, Subcutaneous, 4 TIMES DAILY WITH MEALS, First dose on Tue05/29/25 at 0800, Until Discontinued, Medium dose algorithm: FSBS Correction NPO/Bedtime 121-149 1 units 0 units 150-199 2 units 1 units 200-250 4 units 2 units 251-300 6 units 3 units 301-350 8 units 4 units Greater than 350__10 units call MD _5 units call MD Notify physician if FSBS less than 50 or greater than 350. Do not use NPO dosing If patient receiving TPN or tube feeds. Correction insulin doses must be by at least 3 hours. Waste Sort Code = BLACK [employer] Hazardous Waste Container Given 05/29/2025 5:57 PM EDT 2 Units Abdominal Tissue iopamidoL (ISOVUE-370) 370 mg iodine /mL (76 %) injection (LOW) 75 mL 75 mL, Intravenous, ONCE PRN, 1 dose, Starting on Tue05/29/25 at 0052, Until Tue05/29/25 at 0104, Radiography/Imaging, Radiology Procedure, VESICANT , CT (Contrasts) Given 05/29/2025 1:04 AM EDT 75 mL CRISTINE powder oral supplement 1 Packet 1 Packet, Oral, 2 TIMES DAILY (NUTR), First dose on Tue05/01/25 at 2000, Until Discontinued, orange flavor Mix 1 packet with 8-10 oz of juice or water. Do not administer if NPO. Administer orally. Not for IV use. Supplied by [facility] Given 05/26/2025 9:03 AM EDT 1 Packet lactulose (CHRONULAC) 10 gram/15 mL solution 30 g 30 g, Oral, ONCE, 1 dose, On Tue05/15/25 at 1145 Given 05/15/2025 10:32 AM EDT 30 g latanoprost (XALATAN) 0.005 % ophthalmic solution 1 Drop 1 Drop, Ophthalmic, NIGHTLY, 21 doses, First dose on Tue04/30/25 at 2300, Last dose on Tue05/20/25 at 2100 Given 05/17/2025 10:27 PM EDT 1 Drop Both Eyes latanoprost (XALATAN) 0.005 % ophthalmic solution 1 Drop 1 Drop, Ophthalmic, NIGHTLY, First dose (after last reorder) on Tue05/21/25 at 2100, Until Discontinued Given 06/09/2025 8:38 PM EDT 1 Drop Both Eyes lidocaine (ASPERCREME) 4 % patch 1 Patch 1 Patch, Transdermal, DAILY, First dose on Tue06/09/25 at 1245, Until Discontinued, Remove patch after 12 hours, Administer over 12 Hours, Application site: local Patch Applied 06/10/2025 9:05 AM EDT 1 Patch Left Leg lidocaine (XYLOCAINE) 2 % viscous solution 15 mL 15 mL, Mouth/Throat, ONCE, 1 dose, On Tue05/29/25 at 0300 Given 05/29/2025 1:32 AM EDT 15 mL LORazepam (ATIVAN) tablet 0.5 mg 0.5 mg, Oral, ONCE, 1 dose, On Tue04/30/25 at 1730 Given 04/30/2025 5:34 PM EDT 0.5 mg LORazepam (ATIVAN) tablet 0.5 mg 0.5 mg, Oral, NIGHTLY, First dose (after last reorder) on Tue05/01/25 at 2100, Until Discontinued Given 05/04/2025 8:34 PM EDT 0.5 mg Magic Cup Dessert oral supplement 1 Each 1 Each, Oral, DAILY (NUTR), First dose on Tue05/29/25 at 1715, Until Discontinued, Administer orally. Do not administer if NPO or on clear liquid diet. Not for IV use. Supplied by [facility] Given 05/29/2025 5:15 PM EDT 1 Each magnesium sulfate in dextrose 5% infusion 1 g 1 g, Intravenous, at 100 mL/hr, ONCE, 1 dose, On Tue05/24/25 at 1345, Infuse 1 x Magnesium Sulfate 1 g IVPB for a total dose of 1 g Magnesium Sulfate IV Started 05/24/2025 2:37 PM EDT 1 g 100 mL/hr metFORMIN (GLUCOPHAGE) tablet 500 mg 500 mg, Oral, 2 TIMES DAILY WITH MEALS, First dose on Tue05/01/25 at 1930, Until Discontinued, For procedures using IV iodinated contrast: hold metformin at the time of or prior to the procedure, and for 48 hours after. Inform MD Take with food. Given 05/05/2025 9:39 AM EDT 500 mg metroNIDAZOLE (FLAGYL) IVPB 500 mg 500 mg, Intravenous, EVERY 8 HOURS SCHEDULED (3 times per day), 21 doses, First dose on Tue04/30/25 at 1715, Last dose on Tue05/07/25 at 0600, Administer over 30 Minutes, If unable to infuse antibiotics concurrently, infuse before vancomycin VESICANT , Reason for Therapy: Infection Documented, Indication: Sepsis IV Started 05/01/2025 2:41 PM EDT 500 mg 200 mL/hr miconazole (MICATIN) 2 % powder Topical, 2 TIMES DAILY, 84 doses, First dose on Tue06/06/25 at 2100, Last dose on Tue07/18/25 at 0900, Application site: ana area Given 06/10/2025 9:05 AM EDT morphine injection 2 mg 2 mg, Intravenous, ONCE, 1 dose, On Tue04/30/25 at 2015 Given 04/30/2025 8:28 PM EDT 2 mg morphine injection 2 mg 2 mg, Intravenous, EVERY 4 HOURS PRN, Starting on Tue04/30/25 at 2047, Until Tue05/16/25 at 0915, Pain Unrelieved by Oral Opioid Therapy, Begin with lowest dose unless otherwise directed. Reassess pain in 15 minutes. If pain unrelieved, remainder of dose may be given to patient. Given 05/13/2025 11:51 PM EDT 2 mg morphine injection 2 mg 2 mg, Intravenous, EVERY 2 HOURS PRN, Starting on Tue05/27/25 at 0800, Until Tue05/27/25 at 1110, Pain Unrelieved by Oral Opioid Therapy Given 05/27/2025 10:02 AM EDT 2 mg morphine injection 2 mg 2 mg, Intravenous, EVERY 4 HOURS PRN, Starting on Tue06/09/25 at 0617, Until Tue06/10/25 at 2012, Breakthrough Pain Given 06/10/2025 6:50 AM EDT 2 mg morphine injection 3-4 mg 3-4 mg, Intravenous, EVERY 4 HOURS PRN, Starting on Tue04/30/25 at 2047, Until Tue05/06/25 at 1830, Pain Unrelieved by Oral Opioid Therapy, Begin with lowest dose unless otherwise directed. Reassess pain in 15 minutes. If pain unrelieved, remainder of dose may be given to patient. Given 05/06/2025 2:19 AM EDT 4 mg morphine injection 4-8 mg 4-8 mg, Intravenous, EVERY 4 HOURS PRN, Starting on Tue05/29/25 at 1123, Until Tue06/05/25 at 0952, Pain Unrelieved by Oral Opioid Therapy Given 06/04/2025 8:55 AM EDT 4 mg mupirocin (BACTROBAN) 2 % ointment Nasal, 2 TIMES DAILY, 10 doses, First dose on Tue05/26/25 at 2100, Last dose on Tue05/31/25 at 0900, Critical Care Given 05/28/2025 9:00 AM EDT Both Nares nortriptyline (PAMELOR) capsule 10 mg 10 mg, Oral, NIGHTLY, First dose on Tue06/05/25 at 2100, Until Discontinued Given 06/09/2025 8:36 PM EDT 10 mg ondansetron (ZOFRAN) injection 4 mg 4 mg, Intravenous, EVERY 4 HOURS PRN, Starting on Tue05/24/25 at 1756, Until Tue05/28/25 at 0754, Nausea Given 05/25/2025 8:24 AM EDT 4 mg oxyCODONE (OXY-IR) immediate release tablet 15 mg 15 mg, Oral, EVERY 4 HOURS PRN, Starting on Tue05/15/25 at 1420, Until Tue05/26/25 at 1555, Pain Unrelieved by Oral Non-Opioid Therapy, Pain, Begin with lowest dose unless otherwise directed. Reassess pain in one hour. If pain unrelieved, remainder of dose may be given to patient. Given 05/25/2025 8:58 PM EDT 15 mg oxyCODONE (OXY-IR) immediate release tablet 15 mg 15 mg, Oral, EVERY 4 HOURS PRN, Starting on Tue05/27/25 at 1108, Until Tue05/28/25 at 0727, Pain Unrelieved by Oral Non-Opioid Therapy Given 05/28/2025 6:08 AM EDT 15 mg oxyCODONE (ROXICODONE) immediate release tablet 10 mg 10 mg, Oral, EVERY 4 HOURS PRN, Starting on Tue05/01/25 at 1419, Until Tue05/15/25 at 1420, Pain Unrelieved by Oral Non-Opioid Therapy, Pain, Begin with lowest dose unless otherwise directed. Reassess pain in one hour. If pain unrelieved, remainder of dose may be given to patient. Given 05/15/2025 10:33 AM EDT 10 mg oxyCODONE (ROXICODONE) immediate release tablet 10 mg 10 mg, Oral, ONCE PRN, 1 dose, Starting on Tue06/08/25 at 1754, Until Tue06/08/25 at 1826, Pain, Breakthrough pain Given 06/08/2025 6:26 PM EDT 10 mg oxyCODONE (ROXICODONE) immediate release tablet 5 mg 5 mg, Oral, EVERY 4 HOURS PRN, Starting on Tue04/30/25 at 2047, Until Tue05/01/25 at 1419, Pain Unrelieved by Oral Non-Opioid Therapy, Pain, Begin with lowest dose unless otherwise directed. Reassess pain in one hour. If pain unrelieved, remainder of dose may be given to patient. Given 05/01/2025 9:37 AM EDT 5 mg oxyCODONE (ROXICODONE) immediate release tablet 5 mg 5 mg, Oral, EVERY 1 HOUR PRN, Starting on Tue05/24/25 at 1139, Until Tue05/24/25 at 1546, Pain Unrelieved by Oral Non-Opioid Therapy, When tolerating oral intake. Maximum dose not to exceed 10 mg unless otherwise directed by the Anesthesia Coordinator., PACU Given 05/24/2025 12:32 PM EDT 5 mg oxyCODONE (ROXICODONE) immediate release tablet 5 mg 5 mg, Oral, EVERY 4 HOURS PRN, Starting on Tue05/27/25 at 0759, Until Tue05/27/25 at 1108, Pain Unrelieved by Oral Non-Opioid Therapy Given 05/27/2025 8:46 AM EDT 5 mg oxyCODONE (ROXICODONE) immediate release tablet 5-10 mg 5-10 mg, Oral, EVERY 4 HOURS PRN, Starting on Tue06/07/25 at 1227, Until Tue06/10/25 at 2011, Pain Unrelieved by Oral Non-Opioid Therapy Given 06/10/2025 3:11 PM EDT 10 mg oxyCODONE (ROXICODONE) immediate release tablet 5-15 mg 5-15 mg, Oral, EVERY 4 HOURS PRN, Starting on Tue05/28/25 at 0726, Until Tue06/07/25 at 1227, Pain Unrelieved by Oral Non-Opioid Therapy Given 06/06/2025 2:27 PM EDT 10 mg pantoprazole (PROTONIX) 40 mg in sodium chloride 0.9% 10 mL injection 40 mg, Intravenous, 2 TIMES DAILY, First dose on Tue05/26/25 at 2100, Until Discontinued Given 05/31/2025 9:07 AM EDT 40 mg pantoprazole (PROTONIX) tablet 40 mg 40 mg, Oral, DAILY, First dose on Tue05/01/25 at 0900, Until Discontinued, Do not crush or chew Given 05/26/2025 9:00 AM EDT 40 mg pantoprazole (PROTONIX) tablet 40 mg 40 mg, Oral, 2 TIMES DAILY, First dose on Tue05/31/25 at 2100, Until Discontinued, Do not crush or chew Given 06/10/2025 9:03 AM EDT 40 mg piperacillin-tazobact am in dextrose (ZOSYN) IVPB 3.375 g 3.375 g, Intravenous, EVERY 8 HOURS SCHEDULED (3 times per day), 21 doses, First dose on Tue05/26/25 at 1215, Last dose on Tue06/02/25 at 0800, Administer over 4 Hours, piperacillin-tazobact am EXTENDED INFUSION - Administer over 4 hours VESICANT , Reason for Therapy: Infection Suspected, Indication: Skin/soft tissue IV Started 06/02/2025 9:02 AM EDT 3.375 g 12.5 mL/hr polyethylene glycol (GLYCOLAX, MIRALAX) packet 17 g 17 g, Oral, 2 TIMES DAILY PRN, Starting on Tue05/15/25 at 1001, Until Tue06/10/25 at 2011, Constipation Given 05/17/2025 10:57 PM EDT 17 g potassium chloride (KLOR-CON) tablet 20 mEq 20 mEq, Oral, ONCE, 1 dose, On Tue06/02/25 at 1130 Given 06/02/2025 10:18 AM EDT 20 mEq potassium chloride (KLOR-CON) tablet 20 mEq 20 mEq, Oral, ONCE, 1 dose, On Tue06/03/25 at 0900 Given 06/03/2025 10:07 AM EDT 20 mEq potassium chloride (KLOR-CON) tablet 40 mEq 40 mEq, Oral, ONCE, 1 dose, On Tue05/28/25 at 0730 Given 05/28/2025 9:08 AM EDT 40 mEq ranolazine (RANEXA) SR tablet 1,000 mg 1,000 mg, Oral, DAILY, First dose on Tue05/01/25 at 0900, Until Discontinued, Do Not Crush Given 06/10/2025 9:03 AM EDT 1,000 mg senna (SENOKOT) tablet 8.6 mg 8.6 mg, Oral, NIGHTLY, First dose on Tue05/13/25 at 2100, Until Discontinued Given 05/17/2025 10:22 PM EDT 8.6 mg senna (SENOKOT) tablet 8.6 mg 8.6 mg, Oral, NIGHTLY, First dose (after last modification) on Tue05/18/25 at 2100, Until Discontinued Given 05/19/2025 8:34 PM EDT 8.6 mg SMOG enema Rectal, ONCE, 1 dose, On Tue05/18/25 at 0100 Given 05/17/2025 11:58 PM EDT 1 Each sodium chloride 0.9 % 250 mL IV bolus Intravenous, ONCE, 1 dose, On Tue05/26/25 at 1400, at 245.9 mL/hr IV Started 05/26/2025 12:53 PM EDT 245.9 mL/hr sodium chloride 0.9 % 500 mL IV bolus Intravenous, ONCE, 1 dose, On Tue04/30/25 at 1745, at 491.8 mL/hr IV Restarted 04/30/2025 6:51 PM EDT 491.8 mL/hr sodium chloride 0.9% IV line flush 20-50 mL 20-50 mL, Intravenous, at 150-600 mL/hr, PRN, Starting on Tue05/26/25 at 1751, Until Tue06/10/25 at 2011, Line Care, *Not to be used for red and blue lumen on dialysis catheters* Flush with a minimum of 20 mL after IVPB to insure complete administration of the dose. May use the saline infusion to back flush IVPB tubing as needed. IV Restarted 06/02/2025 1:07 PM EDT 150 mL/hr sodium chloride 0.9% IV line flush 50 mL 50 mL, Intravenous, at 999 mL/hr, PRN, Starting on Tue04/30/25 at 1704, Until Arlene 05/02/25 at 1703, Line Care, Flush with 50 mL after IVPB to insure complete administration of the dose. May use the saline infusion to back flush IVPB tubing as needed., Use this order to document priming and flushing IV line after medication administration. IV Started 05/01/2025 5:41 PM EDT 50 mL 999 mL/hr sodium chloride 0.9% syringe 10 mL 10 mL, Intravenous, EVERY 8 HOURS SCHEDULED (3 times per day), First dose on Tue05/26/25 at 2200, Until Discontinued, Saline locked lumens on central lines should be checked for blood return and flushed every 8 hours. Lumens with running IVF/drips should be checked for blood return and flushed whenever tubing is changed, a minimum of every 7 days. Given 06/06/2025 4:46 AM EDT 10 mL sodium chloride 0.9% syringe 10 mL 10 mL, Intravenous, ONCE PRN, 1 dose, Starting on Tue05/29/25 at 0052, Until Tue05/29/25 at 0105, Line Care, Flush peripheral lines every 12 hours, central lines every 8 hours, and after IV medication, CT (Contrasts) Given 05/29/2025 1:05 AM EDT 10 mL sodium chloride 0.9% syringe Intravenous, PRN, Starting on Tue05/26/25 at 1751, Until Tue06/10/25 at 2011, Line Care, *Not to be used for red and blue lumen on dialysis catheters* Flush with 5-10 mL saline pre/post IVP, 10 mL prior to IVPB or blood product administration, and 20 mL post blood draws for CENTRAL lines. sodium phosphate 10 mmol in dextrose 5% 150 mL IVPB 10 mmol, Intravenous, ONCE, 1 dose, On Tue05/26/25 at 1215, Administer over 2 Hours Rate/Dose Verify 05/26/2025 11:25 AM EDT 76.7 mL/hr sterile water injection 1 mL 1 mL, Injection, PRN, Starting on Tue05/28/25 at 2311, Until Tue06/10/25 at 2012, Use for drug dilution, Use to dilute and administer glucagon injection vancomycin (VANCOCIN) 750 mg in sodium chloride 0.9 % 275 mL IVPB 750 mg, Intravenous, *EVERY 24 HOURS, 6 doses, First dose on Tue05/27/25 at 1700, Last dose on Tue06/01/25 at 1700, Administer over 90 Minutes, VESICANT , Reason for Therapy: Infection Suspected, Indication: Sepsis IV Started 05/28/2025 6:02 PM EDT 750 mg 183.3 mL/hr vancomycin in dextrose 5% (VANCOCIN) premix IVPB 1,000 mg 1,000 mg (rounded from 1,062 mg = 20 mg/kg 53.1 kg), Intravenous, ONCE, 1 dose, On Tue04/30/25 at 1715, Administer over 90 Minutes, VESICANT , Reason for Therapy: Infection Documented, Indication: DFI/osteomyelitis IV Started 04/30/2025 6:22 PM EDT 1,000 mg 133.3 mL/hr vancomycin in dextrose 5% (VANCOCIN) premix IVPB 1,000 mg 1,000 mg, Intravenous, ONCE, 1 dose, On Tue05/26/25 at 1615, Administer over 90 Minutes, VESICANT , Reason for Therapy: Infection Suspected, Indication: Sepsis IV Started 05/26/2025 5:01 PM EDT 1,000 mg 133.3 mL/hr vancomycin in dextrose 5% (VANCOCIN) premix IVPB 500 mg 500 mg, Intravenous, *EVERY 24 HOURS, 6 doses, First dose on Tue05/01/25 at 1800, Last dose on Tue05/06/25 at 1800, Administer over 60 Minutes, VESICANT , Reason for Therapy: Infection Suspected, Indication: DFI/osteomyelitis IV Started 05/01/2025 5:41 PM EDT 500 mg 100 mL/hr documented in this encounter Discontinued Medications Medication Sig Discontinue Reason Start Date End Da te ALPRAZolam (XANAX) 0.5 mg Oral Tablet Take 0.5 mg by mouth daily. 12/25/2018 05/10/2025 gabapentin (NEURONTIN) 300 mg Oral CapsuleIndications:Lef t foot pain Take 1 Capsule by mouth nightly. 02/13/2025 05/10/2025 ALPRAZolam (XANAX) 0.5 mg Oral Tablet Take 1 Tablet by mouth daily for 3 days. 05/10/2025 06/10/2025 gabapentin (NEURONTIN) 300 mg Oral CapsuleIndications:Lef t foot pain Take 1 Capsule by mouth nightly for 3 days. 05/10/2025 06/10/2025 Cholecalciferol, Vitamin D3, 50 mcg (2,000 unit) Oral Capsule Take by mouth daily. Stop Taking at Discharge 06/10/2025 fUROsemide (LASIX) 40 mg Oral Tablet Take 40 mg by mouth daily. Stop Taking at Discharge 06/10/2025 lidocaine (LIDODERM) 5 % Top Adhesive Patch, Medicated Apply 1 Patch topically. Stop Taking at Discharge 03/24/2024 06/10/2025 pantoprazole (PROTONIX) 40 mg Oral Tablet, Delayed Release (E.C.) Take 1 Tablet by mouth daily. Stop Taking at Discharge 02/04/2025 06/10/2025 nalOXone (NARCAN) 4 mg/actuation Nasl [place], Non-Aerosol 0.1 mL by Nasal route as needed for Opioid Reversal. [place] the contents of one device (0.1mL) into one nostril upon signs of opioid overdose. Call 911. May repeat dose in other nostril if no response within 2-3 minutes. Stop Taking at Discharge 02/04/2025 06/10/2025 carvediloL (COREG) 12.5 mg Oral Tablet Take 1 Tablet by mouth 2 times daily. Stop Taking at Discharge 03/20/2025 06/10/2025 documented as of this encounter Active and Recently Administered Medications Times are shown in EDT. Scheduled Medication Order 06/08/2025 06/09/2025 06/10/2025 acetaminophen (TYLENOL) tablet 650 mg 650 mg, Oral, 3 TIMES DAILY, First dose on 06/09/25 at 1400, Until Discontinued, Maximum adult dose of acetaminophen is 4000 mg from all sources in 24 hours. 1334 (Given - Provider: Shannon Owens RN)2036 (Given - Provider: Dylan Chowdhury RN) 09 (Given - Provider: Marisa Garrett RN)143 (Given - Provider: Marisa Garrett RN) atorvastatin (LIPITOR) tablet 40 mg 40 mg, Oral, NIGHTLY, First dose on Tue04/30/25 at 2300, Until Discontinued 2026 (Given - Provider: Binta Mcdowell RN) 2036 (Given - Provider: Dylan Chowdhury RN) carvediloL (COREG) tablet 25 mg 25 mg, Oral, 2 TIMES DAILY WITH MEALS, First dose (after last modification) on Tue06/04/25 at 1800, Until Discontinued, Hold for SBP<100 or HR<60 Take with a meal. 09 (Given - Provider: Diony Valdez RN)182 (Given - Provider: Diony Valdez RN) 0932 (Given - Provider: Shannon Oewns RN)174 (Given - Provider: Shannon Owens RN) 09 (Given - Provider: Marisa Garrett RN) dorzolamide-timoloL (COSOPT) 22.3-6.8 mg/mL ophthalmic solution 1 Drop 1 Drop, Ophthalmic, 2 TIMES DAILY, First dose on Tue04/30/25 at 2300, Until Discontinued 905 (Given - Provider: Diony Valdez RN)2026 (Given - Provider: Binta Mcdowell RN) 0933 (Given - Provider: Shannon Owens RN)2037 (Given - Provider: Dylan Chowdhury RN) 09 (Given - Provider: Marisa Garrett RN) fUROsemide (LASix) tablet 40 mg 40 mg, Oral, DAILY, First dose on Tue06/05/25 at 1100, Until Discontinued 905 (Given - Provider: Diony Valdez RN) 0932 (Given - Provider: Shannon Owens RN) 09 (Given - Provider: Marisa Garrett RN) gabapentin (NEURONTIN) capsule 300 mg 300 mg, Oral, 3 TIMES DAILY, First dose (after last modification) on Tue05/29/25 at 1400, Until Discontinued, Capsules may be opened and contents dissolved in water for administration 09 (Given - Provider: Diony Valdez RN)162 (Given - Provider: Arleth Joseph RN)2026 (Given - Provider: Binta Mcdowell, RN) 0932 (Given - Provider: Shannon Owens, MAHENDRA)133 (Given - Provider: Shannon Owens RN)2036 (Given - Provider: Dylan Chowdhury RN) 0903 (Given - Provider: Marisa Garrett, RN)1434 (Given - Provider: Marisa Garrett, RN) GLUCERNA Therapeutic oral supplement 1 'box' 1 'box', Oral, EVERY MORNING (NUTR), First dose (after last modification) on Tue05/15/25 at 0900, Until Discontinued, strawberry Administer orally. Do not administer if NPO or on clear liquid diet. Not for IV use. Supplied by [facility] 0907 (Given - Provider: Diony Valdez RN) 0933 (Given - Provider: Shannon Owens RN) 0906 (Given - Provider: Marisa Garrett RN) latanoprost (XALATAN) 0.005 % ophthalmic solution 1 Drop 1 Drop, Ophthalmic, NIGHTLY, First dose (after last reorder) on Tue05/21/25 at 2100, Until Discontinued 2027 (Given - Provider: Binta Mcdowell RN) 2037 (Given - Provider: Dylan Chowdhury, MAHENDRA) lidocaine (ASPERCREME) 4 % patch 1 Patch 1 Patch, Transdermal, DAILY, First dose on Tue06/09/25 at 1245, Until Discontinued, Remove patch after 12 hours, Administer over 12 Hours, Application site: local 1133 (Patch Applied - Provider: Shannon Owens RN)2333 (Patch Removed - Provider: Dylan Chowdhury RN) 0905 (Patch Applied - Provider: Marisa Garrett, MAHENDRA)1606 (Due: Patch Removed - Provider: Automatic Discharge Provider - Comment: Time automatically adjusted from order being discontinued) miconazole (MICATIN) 2 % powder Topical, 2 TIMES DAILY, 84 doses, First dose on Tue06/06/25 at 2100, Last dose on Tue07/18/25 at 0900, Application site: [facility] 905 (Given - Provider: Diony Valdez, MAHENDRA)2032 (Given - Provider: Binta Mcdowell, RN) 0932 (Given - Provider: Shannon Owens, MAHENDRA)2038 (Given - Provider: Dylan Chowdhury, MAHENDRA) 0905 (Given - Provider: Marisa Garrett, RN) nortriptyline (PAMELOR) capsule 10 mg 10 mg, Oral, NIGHTLY, First dose on Tue06/05/25 at 2100, Until Discontinued 2026 (Given - Provider: Binta Mcdowell RN) 2035 (Given - Provider: Dylan Chowdhury RN) pantoprazole (PROTONIX) tablet 40 mg(Linked Group 1) 40 mg, Oral, 2 TIMES DAILY, First dose on Tue05/31/25 at 2100, Until Discontinued, Do not crush or chew 905 (Given - Provider: Diony Valdez RN)2026 (Given - Provider: Binta Mcdowell RN) 0932 (Given - Provider: Shannon Owens RN)2036 (Given - Provider: Dylan Chowdhury, MAHENDRA) 0903 (Given - Provider: Marisa Garrett, MAHENDRA) ranolazine (RANEXA) SR tablet 1,000 mg 1,000 mg, Oral, DAILY, First dose on Tue05/01/25 at 0900, Until Discontinued, Do Not Crush 905 (Given - Provider: Diony Valdez RN) 0932 (Given - Provider: Shannon Owens RN) 0903 (Given - Provider: Marisa aGrrett, MAHENDRA) PRN Medication Order 06/08/2025 06/09/2025 06/10/2025 acetaminophen (TYLENOL) suppository 650 mg(Linked Group 2) 650 mg, Rectal, EVERY 4 HOURS PRN, Starting on Tue05/26/25 at 1551, Until Tue06/10/25 at 2012, Pain, Fever, Temp greater than 102 F, Maximum adult dose of acetaminophen is 4000 mg from all sources in 24 hours. 0445 (See Alternative - Provider: Amna Ferris RN)1248 (See Alternative - Provider: Diony Valdez RN) acetaminophen (TYLENOL) tablet 650 mg(Linked Group 2) 650 mg, Oral, EVERY 4 HOURS PRN, Starting on Tue05/26/25 at 1551, Until Tue06/10/25 at 2011, Pain, Fever, Temp greater than 102 F, Maximum adult dose of acetaminophen is 4000 mg from all sources in 24 hours. 0445 (Given - Provider: Amna Ferris RN)1248 (Given - Provider: Diony Valdez, MAHENDRA) ALPRAZolam (XanAX) tablet 0.5 mg 0.5 mg, Oral, 2 TIMES DAILY PRN, Starting on Tue05/29/25 at 1122, Until Tue06/10/25 at 2011, Anxiety, Sleep 2048 (Given - Provider: Dylan Chowdhury RN) alteplase (ACTIVASE) injection 1 mg 1 mg, Intercatheter, PRN, Starting on Tue05/26/25 at 1751, Until Tue06/10/25 at 2011, Clotted line, For catheter occlusion. Instill alteplase into occluded catheter and allow to dwell for 30 minutes. If catheter function not restored, continue to dwell for an additional 90 minutes (120 minutes total). May repeat x 1 for a total of 2 mg. Contact pharmacy for dose. dextrose 50 % solution 25 mL 25 mL, Intravenous, PRN, Starting on Tue05/28/25 at 2311, Until Tue06/10/25 at 2011, Low blood sugar, If FSBS less than 70 mg/dl and patient cannot take orally, Check FSBS every 15 minutes and repeat 25 mL of D50 IV push and notify physician if FSBS less than 70 mg/dL VESICANT docusate sodium (COLACE) capsule 100 mg 100 mg, Oral, 2 TIMES DAILY PRN, Starting on Tue05/20/25 at 1345, Until Tue06/10/25 at 2011, Constipation, Do not crush or chew. glucagon (GLUCAGEN) injection 1 mg(Linked Group 3) 1 mg, Intramuscular, PRN, Starting on Tue05/28/25 at 2311, Until Tue06/10/25 at 2011, Low blood sugar, If FSBS less than 70 mg/dl, patient cannot take orally and without IV access, If patient is without IV access, give Glucagon 1 mg Intramuscularly, insert IV and call physician. morphine injection 2 mg 2 mg, Intravenous, EVERY 4 HOURS PRN, Starting on Tue06/09/25 at 0617, Until Tue06/10/25 at 2011, Breakthrough Pain 0629 (Given - Provider: Binta Mcdowell, RN)2049 (Given - Provider: Dylan Chowdhury, MAHENDRA) 0650 (Given - Provider: Dylan Chowdhury, MAHENDRA) oxyCODONE (ROXICODONE) immediate release tablet 10 mg (COMPLETED) 10 mg, Oral, ONCE PRN, 1 dose, Starting on 06/08/25 at 1754, Until 06/08/25 at 1826, Pain, Breakthrough pain 1826 (Given - Provider: Diony Valdez RN) oxyCODONE (ROXICODONE) immediate release tablet 5-10 mg 5-10 mg, Oral, EVERY 4 HOURS PRN, Starting on Tue06/07/25 at 1227, Until Tue06/10/25 at 2011, Pain Unrelieved by Oral Non-Opioid Therapy 0912 (Given - Provider: Sarah Nye RN)1627 (Given - Provider: Arleth Joseph RN) 0608 (Given - Provider: Binta Mcdowell, MAHENDRA)1131 (Given - Provider: Shannon Owens, MAHENDRA)1754 (Given - Provider: Shannon Owens, MAHENDRA) 0459 (Given - Provider: Dylan Chowdhury, MAHENDRA)0904 (Given - Provider: Marisa Garrett, MAHENDRA)1511 (Given - Provider: Marisa Garrett RN) polyethylene glycol (GLYCOLAX, MIRALAX) packet 17 g 17 g, Oral, 2 TIMES DAILY PRN, Starting on Tue05/15/25 at 1001, Until Tue06/10/25 at 2011, Constipation sodium chloride 0.9% IV line flush 20-50 mL 20-50 mL, Intravenous, at 150-600 mL/hr, PRN, Starting on 05/26/25 at 1751, Until Tue06/10/25 at 2011, Line Care, *Not to be used for red and blue lumen on dialysis catheters* Flush with a minimum of 20 mL after IVPB to insure complete administration of the dose. May use the saline infusion to back flush IVPB tubing as needed. sodium chloride 0.9% syringe Intravenous, PRN, Starting on Tue05/26/25 at 1751, Until Tue06/10/25 at 2011, Line Care, *Not to be used for red and blue lumen on dialysis catheters* Flush with 5-10 mL saline pre/post IVP, 10 mL prior to IVPB or blood product administration, and 20 mL post blood draws for CENTRAL lines. sterile water injection 1 mL(Linked Group 3) 1 mL, Injection, PRN, Starting on Tue05/28/25 at 2311, Until Tue06/10/25 at 2011, Use for drug dilution, Use to dilute and administer glucagon injection Linked Groups Order Group 1: pantoprazole (PROTONIX) 40 mg in sodium chloride 0.9% 10 mL injection (CANCELED) 40 mg, Intravenous, 2 TIMES DAILY, First dose on Tue05/31/25 at 2100, Until Discontinued, Administer IV Push if patient cannot swallow pantoprazole tablets Or pantoprazole (PROTONIX) tablet 40 mgJump to med 40 mg, Oral, 2 TIMES DAILY, First dose on Tue05/31/25 at 2100, Until Discontinued, Do not crush or chew Group 2: acetaminophen (TYLENOL) tablet 650 mgJump to med 650 mg, Oral, EVERY 4 HOURS PRN, Starting on Tue05/26/25 at 1551, Until Tue06/10/25 at 2011, Pain, Fever, Temp greater than 102 F, Maximum adult dose of acetaminophen is 4000 mg from all sources in 24 hours. Or acetaminophen (TYLENOL) suppository 650 mgJump to med 650 mg, Rectal, EVERY 4 HOURS PRN, Starting on Tue05/26/25 at 1551, Until Tue06/10/25 at 2011, Pain, Fever, Temp greater than 102 F, Maximum adult dose of acetaminophen is 4000 mg from all sources in 24 hours. Or acetaminophen (OFIRMEV) infusion 1,000 mg (CANCELED) 1,000 mg, Intravenous, EVERY 6 HOURS PRN, Starting on Tue05/26/25 at 1551, Until Arlene 06/06/25 at 1043, Pain, Fever, Temp greater than 102 F, Administer over 15 Minutes, Maximum adult dose of acetaminophen is 4000 mg from all sources in 24 hours. Group 3: glucagon (GLUCAGEN) injection 1 mgJump to med 1 mg, Intramuscular, PRN, Starting on Tue05/28/25 at 2311, Until Tue06/10/25 at 2011, Low blood sugar, If FSBS less than 70 mg/dl, patient cannot take orally and without IV access, If patient is without IV access, give Glucagon 1 mg Intramuscularly, insert IV and call physician. And sterile water injection 1 mLJump to med 1 mL, Injection, PRN, Starting on Tue05/28/25 at 2311, Until Tue06/10/25 at 2011, Use for drug dilution, Use to dilute and administer glucagon injection documented in this encounter Orders Medications Ordered That Rick ht Not Have Been Administered Count Last Ordered Date First Ordered Date pantoprazole (PROTONIX) 40 m g in sodium chloride 0.9% 10 mL injection 1 05/31/2025 diphenhydrAMINE (BENADRYL) tablet 25-50 mg 1 05/29/2025 dextrose 50 % solution 25 mL 4 05/28/2025 04/30/2025 glucagon (GLUCAGEN) injection 1 mg 4 202404/30/2025 metoclopramide HCl (REGLAN) injection 5 mg 1 05/28/2025 morphine injection 4-8 mg 1 05/28/2025 naloxone (NARCAN) injection 0.2 mg 1 2024 ondansetron (ZOFRAN) injection 4 mg 2 05/2805/24/2025 sterile water injection 1 mL 4 05/28/2025 04/30/2025 acetaminophen (TYLENOL) suppository 650 mg 1 05/26/2025 alteplase (ACTIVASE) injection 1 mg 1 05/26 atropine injection 1 mg 1 05/26/2025 ICU Electrolyte Replacement - Calcium 1 07/2025 ICU Electrolyte Replacement - Magnesium 1 0 05/26/2025 ICU Electrolyte Replacement - Phosphate 1 0 05/26/2025 ICU Electrolyte Replacement - Potassium 1 0 05/26/2025 insulin aspart U-100 (NovoLO G) injection 0-40 Units 1 05/26/2025 Insulin Calculator (SOLE BUFFER) - FSBS (Correction Only) Input 1 05/26/2025 potassium, sodium phosphates (PHOS-NAK) 280-160-250 mg packet 1 Packet 1 05/26/2025 sodium chloride 0.9% IV line flush for blood products 40-100 mL 3 05/26/2025 05/24/2025 sodium chloride 0.9% syringe 1 05/26/2025 vancomycin intermittent dosing 1 05/26/2025 droPERidol (INAPSINE) injection 0.625 mg 1 05/24/2025 fentaNYL (SUBLIMAZE) injection 100 mcg 1 ondansetron (ZOFRAN-ODT) dis integrating tablet 8 mg 1 05/24/2025 oxyCODONE (ROXICODONE) immed iate release tablet 5 mg 1 05/24/2025 acetaminophen (TYLENOL) tablet 1,000 mg 2 0 05/23/2025 05/20/2025 ALPRAZolam (XanAX) tablet 0.5-1 mg 1 2024 aprepitant (EMEND) capsule 40 mg 2 05/23/20 25 05/20/2025 ceFAZolin (ANCEF) IVPB 2 g 1 05/23/2025 ceFAZolin 1 g in sodium chlo ride 0.9% 500 mL irrigation 1 05/23/2025 lactated ringers infusion 3 05/23/2025 docusate sodium (COLACE) capsule 100 mg 1 0 05/20/2025 senna (SENOKOT) tablet 17.2 mg 1 05/18/2025 ceFEPIme (MAXIPIME) 2 g/100 mL IVPB 1 04/30 insulin aspart U-100 (NovoLO G) injection 1-10 Units 1 04/30/2025 sodium chloride 0.9% IV line flush 50 mL 1 04/30/2025 sodium chloride 0.9% syringe 5-10 mL 2 04/16 Lab Orders Without Results Count Last Ordered D ate First Ordered Date ABORH 1 05/24/2025 ANTIBODY SCREEN IGG 1 05/24/2025 BB HISTORY CHECK 1 05/24/2025 Nursing Count Last Ordered Date First Orde red Date PHARM VTE PROPH NON-CANDIDATE 8 06/05/2025 04/30/2025 STRAIGHT CATH 5 05/26/2025 05/18/2025 GARRIDO CATHETER - DISCONTINUE 1 05/25/2025 FLEET ENEMA 1 05/14/2025 ACKNOWLEDGEMENT OF CONSENT 1 05/10/2025 BLOOD GLUCOSE 1 05/10/2025 NURSING COMMUNICATION 2 05/10/20252024 CATHETERIZATION FOR SPEC COLLECTION 1 04/30 Consult Count Last Ordered Date First Orde red Date IP CONSULT TO WOUND CARE 3 05/29/2025 IP CONSULT TO PALLIATIVE CARE 2 05/26/2025 05/10/2025 IP CONSULT TO PHARMACY 2 05/26/202504/30 IP CONSULT TO PASTORAL CARE 1 05/02/2025 IP CONSULT TO VASCULAR SURGERY 1 05/02/2025 IP CONSULT TO NUTRITION 1 05/01/2025 Inpatient consult to Podiatry 1 04/30/2025 OT Count Last Ordered Date First Orde red Date IP CONSULT TO OCCUPATIONAL THERAPY 1 2024 PT Count Last Ordered Date First Orde red Date IP CONSULT TO PHYSICAL THERAPY 1 05/02/2025 Respiratory Care Count Last Ordered Date First Ordered Date RESPIRATORY EVALUATE & TREAT 1 06/09/2025 IV Count Last Ordered Date First Orde red Date SALINE LOCK IV 2 04/30/2025 Admission Count Last Ordered Date First Orde red Date ADMIT 2 05/01/2025 04/30/2025 Transfer Count Last Ordered Date First Orde red Date TRANSFER PATIENT 4 05/28/2025 05/10/2025 Discharge Count Last Ordered Date First Orde red Date DISCHARGE PATIENT 1 06/10/2025 ADT Update Count Last Ordered Date First Orde red Date INTENT TO DISCHARGE 1 06/03/2025 documented in this encounter Additional Health Concerns Infection Onset Date Last Indicated Resolved Time ESBL organism Comment:ESBL urine: 05/23, 06/1205/23/2025 06/12/2025 Assessment Noted Time A fall risk assessment has been complete d for the patient 02/08/2025 11:32 AM EDT documented as of this encounter Care Teams Reconciliation Analyst Relationship Specialty Start Date End Date No Pcp, Per Patient PCP - General 06/04/24 documented as of this encounter
--- OUTSIDE RECORDS SUMMARY | 2025-05-23 03:01 | XMS_ITS | Encounter Summary ---
Author Organization [place] [address] Care Team Providers Care Industrial Relations Analyst Name Role Phone No Pcp, Per Patient Primary Care Provider Evelyne prabhakar Encounter Details Date Type Department Care Team (Late st Contact Info) Description 05/23/2025 3:01 AM EDT Anesthesia Event EDG 3C PULMONARY [facility] [place] [address] Sheryl Horton APRN [address] [place] [address] [place] [address] Anesthesia Record Procedure Summary Procedure Name Responsible Anesthesiologist Anesthesia Start Time Anesthesia Stop Time Events No events on file. Meds * Agents No agents on file. * Blood No blood administrations on file. Lines, Drains, and Airways No LDAs on file. documented in this encounter Social History Tobacco Use Types Packs/Day Years Used Date Smoking Tobacco: Former Cigarettes Q uit: 1991 Passive Smoke Exposure: Past Smokeless Tobacco: Never Alcohol Use Standard Drinks/Week Comments Not Currently 0 (1 standard drink = 0.6 oz pur e alcohol) [facility] Utilities Answer Date Recorded In the past 12 months has th e electric, gas, oil, or water company threatened to shut off services in your home? No 05/01/2025 Overall Financial Resource Strain (CARDIA) Answe r Date Recorded How hard is it for you to pa y for the very basics like food, housing, medical care, and heating? Not hard at all 05/01/2025 PHQ-2 Answer Date Recorded PHQ-2 Total Score 0 05/01/2025 [facility] Occupat ional Health - Occupational Stress [...] money to get more. Never true 05/01/2025 [facility] IP Transportation Answer D ate [...] on file documented as of this encounter Miscellaneous Notes * PAT Pre Evaluation for Anesthesia - Sheryl Horton APRN - 05/20/2025 7:26 AM EDT Pre-Anesthesia Evaluation Note Patient Name: Miladis Montoya Sex: female Patient : 1940 Age: 84 y.o. Patient Date: May 20, 2025 Procedure(s): LEFT ABOVE KNEE AMPUTATION Anesthesia Evaluation Previous anesthesia. History of anesthetic complications: Difficult venous access No family history of anesthesia complications: Airway TM distance: >3 FB Neck ROM: full Dental Comment: Multiple broken and chipped teeth- denies any loose Dental exam findings: poor Pulmonary (+) COPD: Emphysema Sleep apnea (denies CPAP) Pulmonary embolism (2010) History of tobacco use (quit 1991): former Physical exam: Comments: Clear to auscultation (-) no URI cough sputum Cardiovascular Comments: 13 day Holter monitor 03/14/24: ?? A relatively benign monitor study. ?? Some sinus arrhythmia and PACs noted. No atrial fibrillation. [facility] 11/25/2022- 1. 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 iFR of SVG to OM with results 0.98 Recommendations- Continue medical management and risk factor modification (+)Hypertension: well controlled Hyperlipidemia CAD/DE: CABG CHF: Arrhythmias (PAF): atrial fibrillation Peripheral arterial disease: Carotid Disease and Peripheral Stents Shortness of breath: RIVERA pulmonary hypertension: mild ECG reviewed Physical exam: Rhythm: irregular Rate: normal (-) no angina Neuro/Psych Comments: Glaucoma Hx SDH/SAH 01/2024 (+) Cerebrovascular disease (~2021): stroke Psychiatric history (Mood disorder): Cervical pain Peripheral neuropathy (-) seizures GI/Hepatic/Renal Comments: Diverticulosis (+)GERD/PUD: well controlled IBS UTI (H/O) Chronic kidney disease: III Endo/Other Comments: 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 * Normal left ventricular size. * Post stress left ventricular ejection fraction is normal, 63 %. * Abnormal septal motion likely due to history of CABG. * Transient Ischemic Dilation is normal. Echo 06/2024: ?? Left ventricular systolic function is normal. Calculated left ventricular EF = 61.6%?? Left ventricular diastolic function was not assessed. ?? Moderate tricuspid valve regurgitation is present. ?? Mild pulmonary hypertension is present Opioids History of Opioid use Acute RX : BMI 22.08 Anesthesia Plan Anesthesia Plan: general and regional Emend ordered Patient reports she is only agreeable to surgery on Tuesday or no surgery at all . PONV Risk Score: 3. Score of 3 or more is High Risk for PONV, combination antiemetic prophylaxis isindicated. Informed consent Anesthetic plan and risks discussed with: patient. Chart Reviewed and patient examined documented in this encounter Plan of Treatment Upcoming Encounters Date Type Department Care Team (Late st Contact Info) Description 07/16/2025 10:00 AM EDT Office [place] [address] Renae Durand APRN [address] [place] [address] documented as of this encounter Visit Diagnoses Not on filedocumented in this encounter Additional Health Concerns Assessment Noted Time A fall risk assessment has been complete d for the patient 02/08/2025 11:32 AM EDT documented as of this encounter Care Teams Industrial Relations Analyst Relationship Specialty Start Date End Date No Pcp, Per Patient PCP - General 06/04/24 documented as of this encounter
--- OUTSIDE RECORDS SUMMARY | 2025-05-24 07:20 | XMS_ITS | Encounter Summary ---
Author Organization [place] [address] Care Team Providers Care Osteopathic Resident Name Role Phone No Pcp, Per Patient Primary Care Provider Evelyne prabhakar Reason for Visit * Auth/Cert/Inpt (Routine) Specialty Diagnoses / Procedures Referred By Contac t Referred To Contact Diagnoses Wound dehiscence Referral ID Status Reason Start Date Expiration Date Visits Re quested Visits Authorized [id number] 1 1 Encounter Details Date Type Department Care Team (Late st Contact Info) Description 05/24/2025 7:20 AM EDT Ancillary Procedure EDG SURGERY [facility] [place] [address] Donnie Kaur MD [address] [place] [address] [place] [address] Marcell Aguirre MD [address] [place] [address] [place] [address] Stephen Pickard MD [address] [place] [address] [place] [address] Social History Tobacco Use Types Packs/Day Years Used Date Smoking Tobacco: Former Cigarettes Q uit: 1991 Passive Smoke Exposure: Past Smokeless Tobacco: Never Alcohol Use Standard Drinks/Week Comments Not Currently 0 (1 standard drink = 0.6 oz pur e alcohol) [facility] Utilities Answer Date Recorded In [...] Date Recorded PHQ-2 Total Score 0 05/01/2025 [facility] - Occupational Stress [...] money to get more. Never true 05/01/2025 [facility] IP Transportation Answer D ate Recorded [...] on file documented as of this encounter Plan of Treatment Upcoming Encounters Date Type Department Care Team (Late st Contact Info) Description 07/16/2025 10:00 AM EDT Office [place] [address] Renae Durand, ETL CONSULTANT [address] [place] [address] documented as of this encounter Procedures Procedure Name Priority Date/Time Associated Diagnosis Comments US ANES GUIDANCE FOR NERVE BLOCK STAT 05/24/2025 7:18 AM EDT documented in this encounter Results * US ANES GUIDANCE FOR NERVE BLOCK (05/24/2025 7:18 AM EDT) Narrative Genericuser, Audit - 05/24/2025 7:18 AM EDT Ultrasound guided nerve block performed by Anesthesiologist The study image(s) are for reference only and will not be interpreted by a Radiologist. Refer to the Anesthesia procedure note for image description and procedure details. us Rosanna Gallagher MD IMG US ORDERABLES Final Re sult documented in this encounter Visit Diagnoses Not on filedocumented in this encounter Additional Health Concerns Assessment Noted Time A fall risk assessment has been complete d for the patient 02/08/2025 11:32 AM EDT documented as of this encounter Care Teams Osteopathic Resident Relationship Specialty Start Date End Date No Pcp, Per Patient PCP - General 06/04/24 documented as of this encounter
--- OUTSIDE RECORDS SUMMARY | 2025-05-24 08:07 | XMS_ITS | Encounter Summary ---
Author Organization [place] [address] Care Team Providers Care Pattern Designer Name Role Phone No Pcp, Per Patient Primary Care Provider Evelyne prabhakar Reason for Visit * Auth/Cert/Inpt (Routine) Specialty Diagnoses / Procedures Referred By Contac t Referred To Contact Diagnoses Wound dehiscence Referral ID Status Reason Start Date Expiration Date Visits Re quested Visits Authorized [id number] 1 1 Encounter Details Date Type Department Care Team (Late st Contact Info) Description 05/24/2025 8:07 AM EDT Anesthesia Event EDG PERIOP [facility] [place]i [place] [phone] Tano Justice DO [address] [place] [address] Sheryl Horton APRN [address] [place] [address] Anesthesia Record Procedure Summary Procedure Name Responsible Anesthesiologist Anesthesia Start Time Anesthesia Stop Time LEG AMPUTATION ABOVE KNEE / REVISION ABOVE KNEE AMPUTATION (Left: Leg) Tano Justice DO 05/24/25 0807 05/24/25 1141 Events Date Time Event Comment 05/24/2025 0725 0741 AN Equip Check 0807 An Start 0807 An Start Data 0807 Immediate Pre Anesthetic Ass es 0811 An Induction 0813 An LMA 0814 Anesthesia Ready 0830 Time out 0833 Incision 1125 An Emergence 1126 Airway Removed 1130 an stop data 1141 An Stop 1141 Handoff I completed my SBAR handoff to the receiving nurse which has included the followin. Identification of the patient, family, or patient surrogate 2. Identification of the responsible practitioner 3. Pertinent medical history 4. Surgical procedure and reason for procedure 5. Intraoperative anesthetic management 6. All current lines, drains and respiratory support. 7. Outstanding follow up orders (X-rays, consults etc) 8. Expectations/Plans for the early post-procedure period 9. 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 Meds Name Total lidocaine injection 1% 50 mg propofol (DIPRIVAN) injection 60 mg ondansetron (ZOFRAN) injection 4 mg /2 m L 4 mg dexamethasone (DECADRON) injection 4 mg/ mL 4 mg phenylephrine 100 mcg/ml 10ml (syringe) 450 mcg ceFAZolin (ANCEF) IVPB 2 g 2 g fentaNYL (SUBLIMAZE) injection 100 mcg 5 0 mcg lactated ringers infusion 200 mL albumin, human-kjda 5% 250 mL 0.9 % NaCl infusion 250 mL * Agents Name O2 N2O Air Et Desflurane * Blood Name Total TRF PRBC 600 mL Lines, Drains, and Airways Type Details Placement Removal Incision/Wound 04/30/25; 2200; Yes; Amputation; Foot; Left; 05/24/25; 200704/30/25 2200 by Nayana Paez RN 05/24/252007 by Andrea Saez, MAHENDRA Incision/Wound 04/30/25; 2200; Yes; Skin tear; Hand; Posterior, Right; 05/31/25; 1734 04/30/25 2200 by Nayana Paez RN 05/31/25 1734 by Cely Montoya, MAHENDRA Incision/Wound 05/07/25; 1232; MASD (gluteal split); Coccyx; Mid; gluteal split; 06/10/25; 200605/07/25 1232 by Nicolette Mares RN 06/10/252006 by Discharge Provider, Automatic Peripheral IV 05/23/25; 1435; 20; Left; Antecubital; Hope H; 2; 05/30/25; 2128; Leaking; Catheter intact, Dressing applied 05/23/25 1435 by Sarita Huntley RN 05/30/252127 by Macey Jama RN Airway Device: LMA; Size: 3 ; Placement Date: 05/24/25; Placement Time: 812 (created via procedure documentation); Removal Date: 05/24/25; Removal Time: 11205/24/25 0813 by Maite Luna CRNA 05/24/25 1126 by Maite Luna CRNA Incision/Wound 05/24/25; 0834; No; Closed Surgical; Leg; Upper, Left; 06/10/25; 200605/24/25 0834 by Daniela Lamb RN 06/10/252006 by Discharge Provider, Automatic Urethral Catheter ([place]) Placement Date: 05/24/25; Placement Time: 112; Removal Date: 05/25/25; Removal Time: 17305/24/25 1120 by Camryn Frey RN 05/25/25 1736 by Gaye Fallon RN documented in this encounter Social History Tobacco Use Types Packs/Day Years Used Date Smoking Tobacco: Former Cigarettes Q uit: 1991 Passive Smoke Exposure: Past Smokeless Tobacco: Never Alcohol Use Standard Drinks/Week Comments Not Currently 0 (1 standard drink = 0.6 oz pur e alcohol) [facility] Utilities Answer Date Recorded In the past 12 months has [employer] electric, gas, oil, or water [place] threatened to shut off services in your home? No 05/01/2025 Overall Financial Resource Strain (CARDI) Answe r Date Recorded How hard is it for you to pa y for the very basics like food, housing, medical care, and heating? Not hard at all 05/01/2025 PHQ-2 Answer Date Recorded PHQ-2 Total Score 0 05/01/2025 [facility] [place] of Occupat ional Health - Occupational Stress [...] money to get more. Never true 05/01/2025 [facility] IP Transportation Answer D ate Recorded In [...] on file documented as of this encounter Procedure Notes * Maite Luna CRNA - 05/24/2025 8:16 AM EDTAssociated Order(s): Intraop Airway Placement Intraop Airway Placement: Date/Time: 05/24/2025 8:13 AM Induction type: IV Pre-Oxygenation: Reverse trendelenberg Mask ventilation: Easy mask ventilation Airway type: LMA Topical Anesthetic/Lubricant: Lubricant jelly Airway location: Oral Device size: 3 Placement verified: Auscultation, End tidal CO2 and Symmetric chest wall motion Condition: Atraumatic and Unchanged Insertion attempts: 1 Title: VIVEK * Tano Justice DO - 05/24/2025 7:53 AM EDTAssociated Order(s): Peripheral Block by Anesthesia Peripheral Block by Anesthesia Procedure Date/Time: 05/24/2025 7:53 AM Patient location during procedure: OR holding area Staff and Pre-procedure checks Anesthesiologist: Tano Justice DO Performed: anesthesiologist Preanesthetic Checklist: Allergies confirmed, Block plan confirmed, Necessary block equipment present, Supplemental O2 applied, if needed, Anticoagulant confirmed, Block site marked, Patient identified- 2 criteria, Surgical procedure consent verified, Aseptic technique used, Drug/solution labeled, SKINNY recommended monitors applied, IV access functioning, Sedation given, if needed and Resuscitation equipment available Immediate perianesthetic assessment completed: Yes Patient position: Lateral R Prep: Chloraprep Monitoring: BP, EKG, O2 Sat and Mental status assessed Position: Peripheral Block Block type: Sciatic Nerve Block and Femoral Nerve Block Laterality: Left Injection technique: single-shot Pain pump: no pain pump placed Medication(s) Administered: Bupivacaine (MARCAINE) 0.5% Needle Needle type: Stimuplex Needle size: 20Gx4 AssessmentEvents: Uneventful Heart rate change: no Blood aspirated: no Resistance on injection: normal Intermittent incremental injection LA at 5ml documented in this encounter OR Notes * Anesthesia Postprocedure Evaluation - Abdelrahman Gonsales MD - 05/24/2025 3:50 PM EDT Post-Anesthesia Evaluation Note Patient Name: Miladis Montoya Patient Date: May 24, 2025 Post-Anesthesia Evaluation Patient Location: PACU Post op vitals: stable Difficult airway: no Nausea controlled: yes Level of consciousness: awake Post anesthesia pain: adequate analgesia Airway patency: patent Respiratory status: nasal cannula Cardiovascular status: stable Hydration status: euvolemic Temperature: Normothermia Perioperative complications: NONE Vitals Value Taken Time BP 115/62 05/24/25 15:30 Resp 11 05/24/25 15:30 SpO2 97 % 05/24/25 15:30 Temp 36.4 ??C (97.5 ??F) 05/24/25 15:30 Pulse 76 05/24/25 15:30 * Anesthesia Preprocedure Evaluation - Tano Justice DO - 05/24/2025 7:17 AM EDT Pre-Anesthesia Evaluation Note Patient Name: Miladis Montoya Sex: female Patient : 1940 Age: 84 y.o. Patient Date: May 24, 2025 Procedure(s): LEFT ABOVE KNEE AMPUTATION Anesthesia Evaluation Previous anesthesia. History of anesthetic complications: Difficult venous access Airway Mallampati: III TM distance: >3 FB Neck ROM: full Dental Comment: Multiple broken and chipped teeth- denies any loose Dental exam findings: poor Pulmonary (+) COPD: Emphysema Sleep apnea (denies CPAP) Pulmonary embolism (2010) History of tobacco use (quit 1991): former Physical exam: Comments: Clear to auscultation Cardiovascular Comments: 13 day Holter monitor 03/14/24: ?? A relatively benign monitor study. ?? Some sinus arrhythmia and PACs noted. No atrial fibrillation. [facility] 11/25/2022- 1. 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 iFR of SVG to OM with results 0.98 Recommendations- Continue medical management and risk factor modification (+)Exercise tolerance: poor Hypertension: well controlled Hyperlipidemia CAD/PA: CABG Angina (occasionally gets sharp chest pain, reports on/off for years; negative stress test 01/11/25): CHF: Arrhythmias (PAF): atrial fibrillation Peripheral arterial disease: Carotid Disease and Peripheral Stents Shortness of breath: RIVERA pulmonary hypertension: mild ECG reviewed Physical exam: Rhythm: regular Rate: normal Neuro/Psych Comments: Glaucoma Hx SDH/SAH 01/2024 (+) Cerebrovascular disease (~2021): stroke Psychiatric history (Mood disorder): Cervical pain Peripheral neuropathy GI/Hepatic/Renal Comments: Diverticulosis (+)GERD/PUD: well controlled IBS UTI (H/O) Chronic kidney disease: III Endo/Other Comments: 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, revision 03/17/25 Podiatry signed off (+)Diabetes mellitus (04/2025 A1c 5.3): type 2 and well controlled Infected wound: (Failing left TMA) Arthritis: Osteoarthritis Anemia Bleeding tendency: thrombocytopenia 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 Anesthesia Plan: general and regional Induction: intravenous Monitors: STD Emend ordered Palliative Care following PONV Risk Score: 3. Score of 3 or more is High Risk for PONV, combination antiemetic prophylaxis isindicated. Informed consent Anesthetic plan and risks discussed with: patient. Use of blood products discussed with patient whom consented to blood products. Chart Reviewed and patient examined documented in this encounter Miscellaneous Notes * PAT Pre Evaluation for Anesthesia - Rachel Palacio APRN - 05/23/2025 7:01 AM EDT Pre-Anesthesia Evaluation Note Patient Name: Miladis Montoya Sex: female Patient : 1940 Age: 84 y.o. Patient Date: May 23, 2025 Procedure(s): LEFT ABOVE KNEE AMPUTATION Anesthesia Evaluation Previous anesthesia. History of anesthetic complications: Difficult venous access Airway TM distance: >3 FB Neck ROM: full Dental Comment: Multiple broken and chipped teeth- denies any loose Dental exam findings: poor Pulmonary (+) COPD: Emphysema Sleep apnea (denies CPAP) Pulmonary embolism (2010) History of tobacco use (quit 1991): former Physical exam: Comments: Clear to auscultation Cardiovascular Comments: 13 day Holter monitor 03/14/24: ?? A relatively benign monitor study. ?? Some sinus arrhythmia and PACs noted. No atrial fibrillation. [facility] 11/25/2022- 1. 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 iFR of SVG to OM with results 0.98 Recommendations- Continue medical management and risk factor modification (+)Exercise tolerance: poor Hypertension: well controlled Hyperlipidemia CAD/PA: CABG Angina (occasionally gets sharp chest pain, reports on/off for years; negative stress test 01/11/25): CHF: Arrhythmias (PAF): atrial fibrillation Peripheral arterial disease: Carotid Disease and Peripheral Stents Shortness of breath: RIVERA pulmonary hypertension: mild ECG reviewed Physical exam: Rhythm: regular Rate: normal Neuro/Psych Comments: Glaucoma Hx SDH/SAH 01/2024 (+) Cerebrovascular disease (~2021): stroke Psychiatric history (Mood disorder): Cervical pain Peripheral neuropathy GI/Hepatic/Renal Comments: Diverticulosis (+)GERD/PUD: well controlled IBS UTI (H/O) Chronic kidney disease: III Endo/Other Comments: 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, revision 03/17/25 Podiatry signed off (+)Diabetes mellitus (04/2025 A1c 5.3): type 2 and well controlled Infected wound: (Failing left TMA) Arthritis: Osteoarthritis Anemia Bleeding tendency: thrombocytopenia 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 Score of 3 or more is High Risk for PONV, combination antiemetic prophylaxis isindicated. Informed consent Anesthetic plan and risks discussed with: patient. Use of blood products discussed with patient whom consented to blood products. Chart Reviewed and patient examined documented in this encounter Plan of Treatment Upcoming Encounters Date Type Department Care Team (Late st Contact Info) Description 07/16/2025 10:00 AM EDT Office Visit [facility] [address] [address] Renae Durand APRN [address] [place] [phone] documented as of this encounter Procedures Procedure Name Priority Date/Time Associated Diagnosis Comments INTRAOP AIRWAY PLACEMENT Routine 05/24/2025 8:13 AM EDT PERIPHERAL BLOCK Routine 05/24/2025 7:53 AM EDT documented in this encounter Results * INTRAOP AIRWAY PLACEMENT (05/24/2025 8:13 AM EDT) Narrative [facility] - 05/24/2025 8:13 AM EDT Maite Luna CRNA 05/24/2025 8:18 AM Intraop Airway Placement: Date/Time: 05/24/2025 8:13 AM Induction type: IV Pre-Oxygenation: Reverse trendelenberg Mask ventilation: Easy mask ventilation Airway type: LMA Topical Anesthetic/Lubricant: Lubricant jelly Airway location: Oral Device size: 3 Placement verified: Auscultation, End tidal CO2 and Symmetric chest wall motion Condition: Atraumatic and Unchanged Insertion attempts: 1 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 Tano LÓPEZ ANESTHESIA Final Result [facility] [address] [place] [address] * Peripheral Block by Anesthesia (05/24/2025 7:53 AM EDT) Narrative [facility] - 05/24/2025 7:53 AM EDT Tano Justice DO 05/24/2025 7:53 AM Peripheral Block by Anesthesia Procedure Date/Time: 05/24/2025 7:53 AM Patient location during procedure: OR holding area Staff and Pre-procedure checks Anesthesiologist: Tano Justice DO Performed: anesthesiologist Preanesthetic Checklist: Allergies confirmed, Block plan confirmed, Necessary block equipment present, Supplemental O2 applied, if needed, Anticoagulant confirmed, Block site marked, Patient identified- 2 criteria, Surgical procedure consent verified, Aseptic technique used, Drug/solution labeled, SKINNY recommended monitors applied, IV access functioning, Sedation given, if needed and Resuscitation equipment available Immediate perianesthetic assessment completed: Yes Patient position: Lateral R Prep: Chloraprep Monitoring: BP, EKG, O2 Sat and Mental status assessed Position: Peripheral Block Block type: Sciatic Nerve Block and Femoral Nerve Block Laterality: Left Injection technique: single-shot Pain pump: no pain pump placed Medication(s) Administered: Bupivacaine (MARCAINE) 0.5% Needle Needle type: Stimuplex Needle size: 20Gx4 AssessmentEvents: Uneventful Heart rate change: no Blood aspirated: no Resistance on injection: normal Intermittent incremental injection LA at 5ml us Tano Justice DO ANESTHESIA ORDERABLES Final R esult [place] [phone] documented in this encounter Visit Diagnoses Not on filedocumented in this encounter Administered Medications Inactive Administered Medications - up to 1 most recent administrations Medication Order MAR Action Action Date Dose Rate Site 0.9 % NaCl infusion Intravenous, CONTINUOUS PRN, Starting on Tue05/24/25 at 0830, Until Tue05/24/25 at 1141, Anesthesia Intra-op New Bag 05/24/2025 8:30 AM EDT albumin, human-kjda 5 % (ALBUMINEX) 5 % vial Intravenous, CONTINUOUS PRN, Starting on Tue05/24/25 at 0832, Until Tue05/24/25 at 1141, Anesthesia Intra-op New Bag 05/24/2025 8:32 AM EDT ceFAZolin (ANCEF) IVPB 2 g 2 g, Intravenous, ONCE PREPROCEDURE, 1 dose, On Tue05/24/25 at 0700, Administer over 30 Minutes, Reason for Therapy: Surgical Prophylaxis Given 05/24/2025 8:07 AM EDT 2 g dexAMETHasone (DECADRON) injection Intravenous, PRN (Anesthesia), Starting on Tue05/24/25 at 0820, Until Tue05/24/25 at 1141, Anesthesia Intra-op Given 05/24/2025 8:20 AM EDT 4 mg fentaNYL (SUBLIMAZE) injection 100 mcg 100 mcg, Intravenous, ONCE, 1 dose, On Tue05/24/25 at 0730, Pre-op (Holding/SDS Meds) Given 05/24/2025 10:36 AM EDT 25 mcg lactated ringers infusion Intravenous, at 50 mL/hr, PREPROCEDURE CONTINUOUS, Starting on Arlene 05/23/25 at 0754, Until Tue05/24/25 at 1546, To be given in SDS/Pre-op Holding Area, Pre-op (Holding/SDS Meds) New Bag 05/24/2025 7:30 AM EDT lidocaine 1% 10 mg/mL (1 %) injection Intravenous, PRN (Anesthesia), Starting on Tue05/24/25 at 0811, Until Tue05/24/25 at 1141, Anesthesia Intra-op Given 05/24/2025 8:11 AM EDT 50 mg ondansetron (ZOFRAN) injection Intravenous, PRN (Anesthesia), Starting on Tue05/24/25 at 0820, Until Tue05/24/25 at 1141, Anesthesia Intra-op Given 05/24/2025 8:20 AM EDT 4 mg phenylephrine injection Intravenous, PRN (Anesthesia), Starting on Tue05/24/25 at 0820, Until Tue05/24/25 at 1141, Anesthesia Intra-op Given 05/24/2025 10:58 AM EDT 100 mcg propofoL (DIPRIVAN) injection Intravenous, PRN (Anesthesia), Starting on Tue05/24/25 at 0811, Until Tue05/24/25 at 1141, Anesthesia Intra-op Given 05/24/2025 8:11 AM EDT 60 mg Transfuse RBC Routine, On Tue05/24/25 at 0849 New Bag 05/24/2025 8:49 AM EDT Transfuse RBC Routine, On Tue05/24/25 at 1032 New Bag 05/24/2025 10:32 AM EDT documented in this encounter Additional Health Concerns Assessment Noted Time A fall risk assessment has been complete d for the patient 02/08/2025 11:32 AM EDT documented as of this encounter Care Teams Pattern Designer Relationship Specialty Start Date End Date No Pcp, Per Patient PCP - General 06/04/24 documented as of this encounter
--- OUTSIDE RECORDS SUMMARY | 2025-05-24 08:15 | XMS_ITS | Encounter Summary ---
Author Organization [place] [address] Care Team Providers Care Sea Shell Gatherer Name Role Phone No Pcp, Per Patient Primary Care Provider Evelyne prabhakar Reason for Visit * Reason Comments Wound Dehiscence Pt presents per ems from [facility], toes amputated on left foot, here for wound check. * Auth/Cert/Inpt (Routine) Specialty Diagnoses / Procedures Referred By Luis t Referred To Contact Diagnoses Wound dehiscence Referral ID Status Reason Start Date Expiration Date Visits Re quested Visits Authorized [id number] 1 1 Encounter Details Date Type Department Care Team (Late st Contact Info) Description 05/24/2025 8:15 AM EDT - 05/24/2025 10:45 AM EDT Surgery EDG PERIOP [facility] [place] [address] Lawrence Wolf MD [address] [place] [address] [place] [address] LEG AMPUTATION ABOVE KNEE / REVISION ABOVE KNEE AMPUTATION Surgery Details Date/Time Status Location OR Service Patient Class Case Class Case Type Trauma Case? 05/24/2025 8:15 AM Posted EDG MAIN OR EDG Room 05 Vascular Inpatient Elective Panel 1 Procedure LRB Anes Op Region Wound Class Comments LEG AMPUTATION ABOVE KNEE / REVISION ABOVE KNEE AMPUTATION Left General w/Block Leg Clean Left Above Knee Amputation Surgeon Surgeon Role Service Panel Lawrence Wolf MD Primary Vascular 1 Special Needs pre op block per anethesia th documented in this encounter Social History Tobacco Use Types Packs/Day Years Used Date Smoking Tobacco: Former Cigarettes Q uit: 1991 Passive Smoke Exposure: Past Smokeless Tobacco: Never Alcohol Use Standard Drinks/Week Comments Not Currently 0 (1 standard drink = 0.6 oz pur e alcohol) [facility] Utilities Answer Date Recorded In the [...] Date Recorded PHQ-2 Total Score 0 05/01/2025 [facility] - Occupational Stress [...] money to get more. Never true 05/01/2025 [facility] HRSN [facility] IP Transportation Answer D ate Recorded [...] Sign Reading Time Taken Comments Blood Pressure 118/58 05/24/2025 7:46 AM EDT Pulse 88 05/24/2025 7:46 AM EDT Temperature 36.4 C (97.6 F) 05/23/2025 8:01 PM EDT Respiratory Rate 16 05/24/2025 7:46 AM EDT Oxygen Saturation 98% 05/24/2025 7:46 AM EDT Inhaled Oxygen Concentration - - Weight 54.4 kg (120 lb) 05/11/2025 9:53 PM EDT Height 157.5 cm (5' 2 ) [...] Total Score 0 05/01/2025 3:13 PM EDT Rosario Izaguirre MSW * PHQ-9 Total Score Answer Date of Assessment Author 0 05/01/2025 3:13 PM EDT Lina Izaguirre MSW * PHQ-2 Total Score Answer Date of Assessment Author 0 05/01/2025 3:13 PM EDT Lina Izaguirre MSW * Suicide Severity Rating Answer Date of Assessment Author No Risk 04/30/2025 4:20 PM EDT Hillary Arriaza RN * Emblem Suicide Severity Rating Scale (Q shift for [...] from the original note were not included. [facility] Discharge Summary Patient Name: Skyler Bautista [...] Paroxysmal atrial fibrillation (HCC) Coronary 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 artery // Hx of CABG Type 2 diabetes mellitus, without long-term current use of insulin (HCC) Hypertension associated with diabetes (HCC) Acute heart failure with preserved ejection fraction (HCC)(Resolved) Brief Hospital Summary: Did go to [facility] when bed available. Full summary Assessment & [...] for phantom pain control) Coronary 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 artery // Hx of CABG Asa , [...] reasons to take this nalOXone 4 mg/actuation [place] Dose: 4 mg Qty: 1 Each Refills: 0 Commonly known as: NARCAN 4 mg, Nasal, PRN, [place] the contents of one device (0.1mL) into [...] Your Medications These medications were sent to [facility] [address] - [address] - [phone] [address], [facility] [address] ALPRAZolam 0.5 mg Tab carvediloL 25 mg Tab fUROsemide 40 mg Tab gabapentin 300 mg Cap latanoprost 0.005 % Drop lidocaine 4 % Ptmd nortriptyline 10 mg Cap oxyCODONE 5 mg Tab pantoprazole 40 mg Tbec Condition at Discharge: stable Disposition: SNF Follow-up: [facility] [address] [address] Lawrence Wolf MD [address] [place] [address] [place] [address] Follow up on 06/24/2025 Staple removal on [...] * Discharge Instr - Diet* Rhina Nunez RD,LD - 05/01/2025 3:46 PM EDT Continue a [...] Patch 06/11/2025 nalOXone (NARCAN) 4 mg/actuation Nasl [place], Non-Aerosol 0.1 mL by Nasal route as needed for Opioid Reversal. [place] the contents of one device (0.1mL) into [...] daily for 3 days. 3 Tablet 05/10/2025 5 documented in this encounter Discharge Disposition Disposition Code Departure Means Destination Comment s [facility] Facility Travis benavides documented in this encounter [...] mellitus, without long-term current use of insulin ([facility]) - Wound dehiscence over previous left TMA [...] 4:06 PM EDTAssociated Problem(s): Coronary 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 artery // Hx of CABG Asa , [...] Ambulance. Report called to Katie MCCRAY at [facility]. Verbalized understanding. PIV removed, catheter intact, dressing [...] per week. Time In / Time Out 3535-3168 IP OT Individual Treatment Minutes 38 The [...] Pt [facility]ja[facility] Bucio for Tisha okjimmy with pt coming back today and updated on Ambulance time of 1500. Pt states she will have all the help and support she needs for home. Pt states understanding of all DC medications, care needs, and follow up appointments. . Sister notified of return to [facility]. No DC needs requested by pt or identified by CC. CC will sign off. Final Note Referral to SEP Care Management (SEP patients only) N/A Discharge Round Completed Yes Post Acute Facility [facility] Post Acute Form Assign to [employer] No Post Acute Form Completed Yes Care Coordination Discharge Ready? Yes [facility] Arranged at Discharge None DME Assign to [employer] No DME completed by [employer] No Transportation at Discharge Personal vehicle Date Expected 06/10/25 Time Expected 1500 Transportation Assign to [employer] Yes Confirmed Discharge Transportation Plan? Yes Transportation setup completed by [employer] No PASAR Completed Not Applicable Patient Aware and Agrees with DC Plan Yes Primary Caregiver/Legal Decision Maker aware and agree with Discharge Plan Yes Name of Family member notified Sister Family Member Notified Relationship to Patient Power of Communications Equipment Installer Does family and/or caregiver verbalize readiness, willingness, [...] per week. Time In / Time Out 9795-9364 IP PT Treatment Minutes 40 The total [...] issues. See LDAs on flowsheet. Left AKA ALLIED HEALTH TEACHER with noelle C/D/I. Wound care protocol followed [...] Evaluation Actual Discharge Plan 06/09/25 SW update. [facility] had bed today. Pt was not medically stable to dc today. If dc on Tuesday, Will need ambulance at tx. Sister request a call at dc date. Post accute completed. Waiting for bed available at [facility]. SW following * Trino Montiel MD - [...] - vascular following - MRI L foot 718 with mild marrow edema of metatarsal distal stump margins without evidence of osteomyelitis - Angiogram performed, minimal blood flow past the knee, recommended AKA - s/p AKA 8/8 - pain difficult to control with PO meds and recent encephalopathy, adjusting meds on real time basis * Trino Montiel MD - 06/09/2025 11:10 AM EDTAssociated Problem(s): Coronary 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 artery // Hx of CABG Asa , [...] mellitus, without long-term current use of insulin ([facility]) S/P transmetatarsal amputation of foot, left (HCC) [...] on real time basis Coronary 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 artery // Hx of CABG Asa , [...] Paroxysmal atrial fibrillation (HCC) Coronary 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 artery // Hx of CABG Type 2 [...] MD 06/09/2025 11:10 AM * Diony Valdez, RN - 06/08/2025 7:00 PM EDT Patient A&O [...] AM. Bladder scanned at 1333 for 534ml. messaged, PRN straight caths ordered. Pt straight cathed [...] 11:33 AM EDTAssociated Problem(s): Coronary 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 artery // Hx of CABG Asa , [...] mellitus, without long-term current use of insulin ([facility]) S/P transmetatarsal amputation of foot, left (HCC) [...] on real time basis Coronary 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 artery // Hx of CABG Asa , statin and renexa Paroxysmal atrial fibrillation (HCC) Acute on chronic heart failure with preserved ejection fraction (HCC) - 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 - had been holding coreg for lower BPs - restart now with hold parameters as BP increased Hypertension associated with diabetes ([facility]) - A1c 5.3 - diet controlled - [...] by specialist Goals of care, counseling/discussion Pancytopenia ([facility]) Acute respiratory failure with hypoxemia (HCC) Acute [...] Paroxysmal atrial fibrillation (HCC) Coronary 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 artery // Hx of CABG Type 2 [...] 06/08/25 SW update. Spoke with Lottie at [facility]. Currently no beds available. [facility] continue to monitor pt for hallucinations. Will need ambulance at tx. Sister requesta call at tx date. Post accute completed. Waiting for bed available at [facility]. SW following * Amna Ferris, RN - [...] >980 Straight cath= 800ml Awaiting placement at [facility] * Arnaud Mata, PT - 06/07/2025 [...] per week. Time In / Time Out 3382-9022 IP PT Treatment Minutes 33 The total time spent caring for this patient included but was not limited to hands-on treatment;medical record review;communication and education with patient and/or family/caregiver;clinical judgement necessary for treatment planning for next session;communication with nursing and/or care coordinat ion/social work regarding patient status and discharge planning * Rhina Nunez RD,LD - 06/07/2025 12:35 PM EDT [facility] Nutrition Reassessment Evidence Supported Malnutrition Diagnosis: No malnutrition identified Nutrition Problem/Diagnosis: Nutrition Diagnosis Problem 1: Increased nutrient needs (specify) (kcal and pro) related to increased demand for energy/nutrients as evidenced by wounds. Status: Active nutrition diagnosis Nutrition Prescription: Kcals: 9306-4461 kcal (25-30 kcal/kg using 52.1 kg) Protein (g): 62-78 gm Protein needs based on: 1.2-1.5 gm/kg Fluid (ml): 1 mL/kcal Other (comment): Reviewed 06/07 Plan/Interventions: Meals and Snacks: Regular Medical Food Supplements: Glucerna Therapeutic Medical Food/Supplement Freq: 1xday - [place] Nutrition-Related Medication Management: Lasix, Protonix Nutrition Education: [...] Stool Occurrence: 1 Stool Appearance: Type 4 [place] Stool Chart Stool Color: Brown Stool Amount: [...] mellitus, without long-term current use of insulin ([facility]) - Wound dehiscence over previous left TMA [...] 12:27 PM EDTAssociated Problem(s): Coronary 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 artery // Hx of CABG Asa , [...] mellitus, without long-term current use of insulin ([facility]) S/P transmetatarsal amputation of foot, left (HCC) [...] on real time basis Coronary 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 artery // Hx of CABG Asa , [...] Paroxysmal atrial fibrillation (HCC) Coronary 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 artery // Hx of CABG Type 2 [...] spoke with son on phone, met with [facility] liaison, noted hallucianations last jhony, facility would [...] of care, still waiting on bed at [facility]. Alarm in place, call light within reach, encouraged pt to call out for any needs/assistance. Pt's niece is at bedside and concerned about patient seeing things. When this RN was in room, patient was seeing water drip down the wall and spiders and leaves on her bed. Dr. Montiel. notified. Rhina Burkett RN * Yvonne Burdick RN - 06/06/2025 4:48 PM EDT 06/06/257 Assessment Complete Actual Discharge Plan 06/06/25: CC Update, no bed at [facility] this date, post acute form completed, s/p [...] 3:47 PM EDTAssociated Problem(s): Coronary 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 artery // Hx of CABG Asa , [...] on real time basis Coronary 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 artery // Hx of CABG Asa , [...] Paroxysmal atrial fibrillation (HCC) Coronary 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 artery // Hx of CABG Type 2 [...] with son on phone, no bed at [facility] this date, optimizing pain meds, post acute [...] encouragement Others Present/Assisting MIKE Shipman / MAHENDRA Ernstfarm management agent Information This progress note will serve as [...] CP -> PE ruled out 05/29 d/c MASONRY SUPERVISOR 06/05 Awaiting bed at [facility] Precautions Therapy Precautions Yes Weight Bearing Status [...] per week. Time In / Time Out 2533-1811 (23 minutes) IP OT Individual Treatment Minutes [...] CP -> PE ruled out 05/29 d/c MASONRY SUPERVISOR Pain Screening PT/OT Patient Currently in Pain [...] per week. Time In / Time Out 8913-4499 ([id number]) IP PT Treatment Minutes 23 The total [...] EDT Palliative Care Progress Note Consult Location: [facility] Length of Stay: 35 Assessment: [...] is slowly improving. She was transferred to thefloor from ICU last week. Decisional Capacity:Fully Decisional [...] the context of her medical situation. Ul timately, patient and family agree to DNR/DNI. She [...] 12:46 PM EDTAssociated Problem(s): Coronary 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 artery // Hx of CABG Asa , [...] on real time basis Coronary 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 artery // Hx of CABG Asa , [...] Paroxysmal atrial fibrillation (HCC) Coronary 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 artery // Hx of CABG Type 2 [...] Nunez RD,LD - 06/05/2025 11:29 AM EDT [facility] Nutrition Malnutrition Reassessment Evidence Supported Malnutrition Diagnosis: No malnutrition identified Nutrition Problem/Diagnosis: Nutrition Diagnosis Problem 1: Increased nutrient needs (specify) (kcal and pro) related to increased demand for energy/nutrients as evidenced by wounds. Status: Active nutrition diagnosis Nutrition Prescription: Kcals: 3093-9717 kcal (25-30 kcal/kg using 52.1 kg) Protein (g): 62-78 gm Protein needs based on: 1.2-1.5 gm/kg Fluid (ml): 1 mL/kcal Other (comment): Reviewed 06/05 Plan/Interventions: Meals and Snacks: Regular Medical Food Supplements: Glucerna Therapeutic Medical Food/Supplement Freq: 1xday - [place] Nutrition-Related Medication Management: Protonix Nutrition Education: Importance [...] Stool Occurrence: 1 Stool Appearance: Type 5 [place] Stool Chart Stool Color: Brown Stool Amount: Small Biochemical Data/Medical Tests: Pertinent Labs: Reviewed Clinical Course: Clinical Course: Admitted with L TMA dehiscence. 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 Transferred to MICU 05/26 d/t hypotension. CXR with pulmonary edema. Palliative care following. Wound Care noted. * Shonna Elkins, MAHENDRA - 06/05/2025 4:18 AM EDT Images from [...] to monitor. Sujata Brink RN * Jennifer Lopez COTA - 06/04/2025 2:27 PM EDT 06/04/25 1120 [...] CP -> PE ruled out 05/29 d/c MASONRY SUPERVISOR Precautions Therapy Precautions Yes Weight Bearing Status [...] per week. Time In / Time Out 3601-5364; 9874-8605 IP OT Individual Treatment Minutes 28 The [...] 1:59 PM EDTAssociated Problem(s): Coronary 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 artery // Hx of CABG Asa , [...] mellitus, without long-term current use of insulin ([facility]) S/P transmetatarsal amputation of foot, left (HCC) [...] controlled on oral meds Coronary 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 artery // Hx of CABG Asa , [...] Paroxysmal atrial fibrillation (HCC) Coronary 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 artery // Hx of CABG Type 2 [...] CP -> PE ruled out 05/29 d/c MASONRY SUPERVISOR Pain Screening PT/OT Patient Currently in Pain [...] per week. Time In / Time Out 8479-9216 IP PT Treatment Minutes 38 The total [...] Up Treatment Attempt PT Subjective Comments #[id number] Others Present/Assisting patient requesting therapy return later [...] to call out as needed. * Samia Ortega OT - 06/03/2025 1:22 PM EDT 06/03/25 [...] CP -> PE ruled out 05/29 d/c MASONRY SUPERVISOR Precautions Precaution Info Given Yes;Contact;To use call [...] SCORING Daily Activity Raw Score 13 AM [facility] Daily Activity CMS 0-100% Functional Percentage 63.03 AM [facility] Daily Activity CMS G Code Modifier CL [...] per week. Time In / Time Out [phone] (23 minutes) IP OT Individual Treatment Minutes 23 The total time spent caring for this patient included but was not limited to medical record review;hands-on treatment;communication and education with patient and/or family/caregiver;communication with nursing and/or care coordination/social work regarding patient status and discharge planning;clini george judgement necessary for treatment planning for next session * Ramonita Jean, INTERPRETER AND TRANSLATOR - 06/03/2025 12:53 PM EDT 06/03/25 1142 [...] CP -> PE ruled out 05/29 d/c MASONRY SUPERVISOR Pain Screening PT/OT Patient Currently in Pain [...] per week. Time In / Time Out 6657-2957 (2909-1984) IP PT Treatment Minutes 23 Updated PT note needed in next 24hrs? Request addressed by PT * Adry Alcazar - 06/03/2025 12:45 PM EDT 06/03/25 1245 Palliative interventions Spiritual support Spiritual support and counseling by palliative professional for patient Palliative Care Physical Education Specialist Pastoral Care Interventions Spiritual-emotional support;Prayer Spiritual acuity Normal complexity Care Plan Follow up 1-2x/week (Palliative Care Physical Education Specialist following) Length of time in minutes spent with pt/family/chart review 45 Referred By (Palliative Care follow up visit) Palliative Care casing cooker follow up visit. Patient shared that she is experiencing a lot of pain, and endorses that it has been gradually increasing. She also expressed fear that the increase in pain is indicative of more infection. Patient informed designer writer that she would like to speak with someone ab out what to expect with regard to pain going forward, as well as the risk of the infection returning. Physical Education Specialist communicated pt's request to nurse/MAHENDRA Colbert. Patient continues to acknowledge that her treasure in the God is providing her comfort at this time. She was receptive to prayer, which designer writer provided. Adry Alcazar, [facility] Physical Education Specialist, Palliative Care * Stephen Pickard MD - [...] 7:21 AM EDTAssociated Problem(s): Coronary 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 artery // Hx of CABG - History [...] 05/24 - pain controlled on oral meds PAD [...] approx 0.9-1.2. - stable Coronary 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 artery // Hx of CABG - History [...] Semi Fowlers) Pulse 93 Temp 98.4 ??F (36.9 ??C) (Oral) Resp [...] not ambulating at this time. Bed alarm salesperson hosiery light at reach encouraged to call for [...] AKA - s/p AKA 8 - pain improving each day now. Last [...] 9:53 AM EDTAssociated Problem(s): Coronary 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 artery // Hx of CABG - History [...] mellitus, without long-term current use of insulin ([facility]) - A1c 5.3 - diet controlled - not following FSBS Hypertension associated with diabetes (HCC) - meds held for lows Stage 3a chronic kidney disease (HCC) - Baseline approx 0.9-1.2. - stable Coronary 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 artery // Hx of CABG - History [...] Carranza RN * Tali Rodriguez RN - 06/01/2025 6:10 PM EDT Patient A&O x 4, VSS, a-fib with PVCs on monitor. Room air, sats >90%. C/o SOB at rest. MD notified. C/o L AKA pain being managed with PRN oxy, pain decreased on reassessments. Skin assessed, No new issues. See flowsheets. PIV site c/d/i, no complications. Patient not ambulating at this time. Bed alarm salesperson hosiery light at reach encouraged to call for [...] - s/p AKA 8/8 - pain improving * Stephen Pickard MD [...] - s/p AKA 8/8 - pain improving * Stephen Pickard MD [...] 9:51 AM EDTAssociated Problem(s): Coronary 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 artery // Hx of CABG - History [...] approx 0.9-1.2. - stable Coronary 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 artery // Hx of CABG - History of CABG - continue lipitor, coreg, ranexa - no chest pain Anemia in other chronic diseases classified elsewhere Pancytopenia ([facility]) - b12, folate, iron ok. Trasferrin down [...] speakerphone, discussed d/c plan, plan remains to [facility] per pt and son, possible bed over weekend per liaison, s/p AKA, will need ambulance transport, post acute previously completed, CC following. Completed by CC/SW Yes * Cely Montoya RN - 05/31/2025 12:45 PM EDT Pt refusing insulin, states that she is allergic to it. Made Dr. Pickard aware. * Melvin Elizondo RD,LD - 05/31/2025 11:47 AM EDT [facility] Nutrition Reassessment Evidence Supported Malnutrition Diagnosis: No malnutrition identified. Nutrition Problem/Diagnosis: Nutrition Diagnosis Problem 1: Increased nutrient needs (specify) (kcal and pro) related to increased demand for energy/nutrients as evidenced by wounds. Status: Active nutrition diagnosis Nutrition Prescription: Kcals: 8839-9099 kcal (25-30 kcal/kg using 52.1 kg) Protein [...] Occurrence: 1 Stool Appearance: (!) Type 6 [place] Stool Chart Stool Color: Brown Stool Amount: [...] #1 Pt agreeable to therapy Others Present/Assisting ATTORNEY Discharge Information This progress note will serve [...] CP -> PE ruled out 05/29 d/c MASONRY SUPERVISOR Pain Screening PT/OT Patient Currently in Pain [...] 8:02 AM EDTAssociated Problem(s): Coronary 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 artery // Hx of CABG - History [...] approx 0.9-1.2. - stable Coronary 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 artery // Hx of CABG - History [...] with others and complete iv abx at [facility] Estimated Date of Discharge: 05/31/2025 VTE [...] call light w/in reach. * Samia Ortega, OT - 05/30/2025 11:48 AM EDT 05/30/25 1053 [...] CP -> PE ruled out 05/29 d/c MASONRY SUPERVISOR Precautions Precaution Info Given Yes;To use call [...] Functional Percentage 59.67 AM PAC Daily Activity [facility] G Code Modifier CK Education Education To [...] per week. Time In / Time Out (41 minutes) IP OT Individual Treatment Minutes [...] 11:39 AM EDTAssociated Problem(s): Coronary 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 artery // Hx of CABG - History [...] approx 0.9-1.2. - stable Coronary 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 artery // Hx of CABG - History [...] MD 05/30/2025 11:34 AM * Nicole Zaidi, INTERPRETER AND TRANSLATOR - 05/30/2025 9:03 AM EDT 05/30/25 0903 [...] over to left side of bed for designer writer to have better angle to wrapstump; [...] patient status and discharge planning * Claudette Dean RN - 05/30/2025 5:53 AM EDT Daily [...] and LTACH following, per pt and sister, [facility] if appropriate, anticipate need forambulance transport at d/c, CC following. Completed by CC/SW Yes * Dee Dee Olivia RD,LD - 05/29/2025 3:30 PM EDT [facility] Nutrition Reassessment Nutrition Problem/Diagnosis: Nutrition Diagnosis Problem 1: Increased nutrient needs (specify) (kcal and pro) related to increased demand for energy/nutrients as evidenced by wounds. Status: Active nutrition diagnosis Nutrition Prescription: Kcals: 3453-2953 kcal (25-30 kcal/kg using 52.1 kg) Protein [...] Stool Occurrence: 1 Stool Appearance: Type 5 [place] Stool Chart, Type 4 [place] Stool Chart Stool Color: Brown Stool Amount: [...] pain remains an issue. No better with MASONRY SUPERVISOR. Will stop that and adjust prns * [...] pain remains an issue. No better with MASONRY SUPERVISOR. Will stop that and adjust prns * [...] 11:24 AM EDTAssociated Problem(s): Coronary 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 artery // Hx of CABG - History [...] pain remains an issue. No better with MASONRY SUPERVISOR. Will stop that and adjust prns PAD [...] not following FSBS Hypertension associated with diabetes ([facility]) - meds held for lows Chronic heart failure with preserved ejection fraction (HCC) - Echo 2023 normal EF. - Euvolemic on exam - repeat echo as above Stage 3a chronic kidney disease (HCC) - Baseline approx 0.9-1.2. - stable Coronary 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 artery // Hx of CABG - History [...] Type Follow Up Treatment Attempt Patient Room/Unit 5446 Therapy delay reason Patient not feeling well (Pt in pain, attempting to rest - pt declines therapy at this time. Will follow up as time allows.) * Rhina Duval RN - 05/29/2025 10:27 AM EDT WOUND CARE Consulted for right nostril and bilateral ears. Pt seen on 5D. Upon assessment, pt with MASONRY SUPERVISOR pump and nasal cannula in place. Bilateral ears are red and blanchable. No redness or irritation noted to nostrils. Recommend to follow medical billing representative prevention protocol, can utilize oxygen tubing foams or mepilex lite foam. Encourage continuation of preventative interventions such as frequent repositioning/ scheduled turns, as well as offloading bilateral heels. Patient is on a low air loss sleep surface to manage the microclimate of the skin (ensure function is on). Orders updated in [facility]. Will not actively follow at this [...] has C/O left leg pain managed with MASONRY SUPERVISOR pump infusing Hydromorphone and at midnight she [...] Bladder armstrong done, 454 ml urine noted, LIGHTING EQUIPMENT OPERATOR notified, instructed to do straight cath until [...] she has redness to B/L ears. Kristian Carranza RN * Leeann Tan MD - 05/29/2025 1:23 [...] Rhythm: atrial fibrillation - controlled Rate: tachycardia [place]: normal Ectopy: premature ventricular contractions (infrequent) Conduction: [...] has received blood products, and remains on MASONRY SUPERVISOR for pain, and multiple antibiotics. Pt meets criteria for LTACH level of care. Sw has sent proactive referral to LTACH to evaluate for appropriateness. Sw has sent family information on LTACH level of care, Sw met with pt and resources on LTACH level of care. Proactive referral sent to ltach to evaluate for appropriateness. * Marj Peña RP - 05/28/2025 2:14 PM EDT Pharmacy Note [...] EDT Palliative Care Progress Note Consult Location: [facility] Length of Stay: 27 Assessment: [...] Oxy-IR 15mg q4 hrs prn + Hydromorphone MASONRY SUPERVISOR Pump(started today per ICU team) Opioid Induced Constipation: Polyethylene glycol 17 g BID PRN Psychosocial distress: anticipatory grief, change in QoL and loss on independence. [facility]ual distress: [facility]. [facility] will continue [...] service team with questions or concerns. Rhina Steen, DO - Palliative Care Services Time-Based Billing [...] Patient seen with our HPM fellow and Physical Education Specialist Kelly and agree with Dr. Steen's notes. Patient [...] control now the issue again. Will start MASONRY SUPERVISOR today to attempt to quantify narcotic requirement. 2. Hypotension, improved. Stable 3. History of HFpEF. 4. Peripheral artery disease, holding full anticoagulation until hemoglobin stabilizes. 5. Anemia, still downtrending. Received 1 unit of packed red blood cells 05/26. 6. Acute hypoxemic respiratory failure, improved/resolved, now on room air. 7. CKD, creatinine is stable, continue to avoid nephrotoxins 8. Type 2 diabetes: Continue ICU pilot safety inspector 9. Diabetic foot infection status post left [...] to go somewhere that can manage her MASONRY SUPERVISOR. When she transfers, critical care will sign [...] AM EDT Daily Status Update Add dilaudid MASONRY SUPERVISOR Transfer? Family Does the patient have family present? Yes, offer family to join rounds Ventilator SpO2: 96 % (05/28/25 0400) Ventilator: No Airway LDAs None Quintanilla Score: (not recorded) No results for input(s): PFRATIO in the last 72 hours. Pain Pain controlled in the last 24 hours: No: adding MASONRY SUPERVISOR Pain/Sedation Medications fentaNYL (SUBLIMAZE) injection 50 mcg [...] effects (05/28/2543) Pain Intervention(s): Medication (see eMar) (05/28/2543) Post Intervention Reassessment: 8 (05/27/25 160) Critical-Care Pain Observation Tool Post Intervention Reassessment: 8 (05/27/25 160) Non-Verbal Pain Pain Intervention(s): Medication (see eMar) [...] 8:08 AM EDTAssociated Problem(s): Coronary 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 artery // Hx of CABG - History [...] approx 0.9-1.2. - stable Coronary 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 artery // Hx of CABG - History [...] palliative professional for caregiver/family members Palliative Care Physical Education Specialist Pastoral Care Interventions Spiritual-emotional support;Prayer Spiritual acuity Normal complexity Care Plan Follow up 1-2x/week Length of time in minutes spent with pt/family/chart review 15 Referred By ([facility] Physical Education Specialist follow up visit.) Palliative Care casing cooker follow up visit post surgery. Patient's son/Edgar [...] as well as gratitudefor her family's support. Coloring Room Worker prayed with pt and family and will continue to follow. Adry Alcazar, [facility] Physical Education Specialist, Palliative Care * Robby Thomas MD - 05/27/2025 3:40 PM EDT Palliative Care Progress Note Consult Location: [facility] Length of Stay: 26 Assessment: [...] nephrotoxins 8. Type 2 diabetes: Continue ICU pilot safety inspector 9. Diabetic foot infection status post left [...] congestion, bilateral pleural effusions. * Kesha Sams, [facility] - 05/27/2025 2:27 PM EDT Pharmacy Note [...] per week. Time In / Time Out [id number]/[id number] IP OT Individual Treatment Minutes 38 The [...] 6 (05/25/25 123) Pain 0-10 Scale: 8 (05/27/251001) Pain Type: Acute Post-Operative (05/25/252050) Pain Location: Leg (05/27/251001) Pain Orientation: Anterior;Posterior (05/27/25 1002) Pain Quality: Aching;Discomfort;Throbbing (05/27/251001) Onset pain: Past week (05/27/251001) Effect of Pain on Daily Activities: Decreased mobility;Hopeless (05/27/25 1002) Pain Intervention(s): Medication (see eMar) (05/27/251001) Post Intervention Reassessment: Sleeping (05/27/25 09) Critical-Care Pain Observation Tool Post Intervention Reassessment: Sleeping (05/27/25 09) Non-Verbal Pain Pain Intervention(s): Medication (see eMar) (05/27/25 1002) Faces Scale Faces Scale: 6 (05/25/25 1238) Pain Intervention(s): Medication (see eMar) (05/27/25 1002) Delirium Is the patient experiencing s/s of delirium? No RASS Score: 0 (05/27/25 0800) CAM Result: Negative (05/27/25 08) Progressive Mobility Patient's Current Mobility Score: 5 [...] Garrido Catheter Duration Urethral Catheter (Garrido) 05/26/25 181 Temperature probe 16 fr 1 day Ana Care/Garrido Care: Foam cleanser (05/27/25 0000) Appropriate to DC garrido (alternatives: external catheter, urinal, etc)? Yes- initiate removal/voiding protocol Restraints Restraints: no Most Recent Restraint Order (From admission, onward) None LTACH Is this patient LTACH appropriate? No: Will continue to follow * Ely Owusu RD,LD - 05/27/2025 9:50 AM EDT [facility] Nutrition Malnutrition Reassessment Evidence Supported Diagnosis: No malnutrition identified In the context of: Nutrition Problem/Diagnosis: Nutrition Diagnosis Problem 1: Increased nutrient needs (specify) (kcal and pro) related to increased demand for energy/nutrients as evidenced by wounds. Status: Active nutrition diagnosis Nutrition Prescription: Kcals: 3657-3113 kcal (25-30 kcal/kg, based on 54.4 kg) [...] 'box' Oral Q AM 1 'box' at 05/26/25 0903 CRISTINE powder oral supplement 1 Packet Oral BID 1 Packet at 05/26/25 0903 Food Insecurity Within the past 12 months, [...] Stool Occurrence: 1 Stool Appearance: Type 5 [place] Stool Chart Stool Color: Brown Stool Amount: [...] 9:42 AM EDTAssociated Problem(s): Coronary 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 artery // Hx of CABG - History [...] approx 0.9-1.2. - stable Coronary 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 artery // Hx of CABG - History [...] patient status and discharge planning * Joya Whatley, MAHENDRA - 05/26/2025 5:44 PM EDT Bedside PICC [...] and verified by MAHENDRA Perez. A 4 german double lumen PICC cut at the 38 [...] patient did tolerate the procedure well. Primary RNMarni, updated on procedure. 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 Below is a summary of my pertinent independent evaluation and findings in addition to the assessment and plan formulated by the physician social and human services assistant. L AKA dressing changed Stump appears [...] 9:50 AM EDTAssociated Problem(s): Coronary 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 artery // Hx of CABG - History [...] NOTE Assessment & Plan Diabetic foot infection ([facility]) S/P transmetatarsal amputation of foot, left ([facility]) - Wound dehiscence over previous left TMA [...] - AKA as above Paroxysmal atrial fibrillation ([facility]) - 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 - rate controlled on coreg Type 2 diabetes mellitus, without long-term current use of insulin ([facility]) - A1c 5.3 - diet controlled - not following FSBS Hypertension associated with diabetes ([facility]) - at goal on current rx Chronic heart failure with preserved ejection fraction ([facility]) - Echo 2023 normal EF. - Euvolemic on exam Stage 3a chronic kidney disease ([facility]) - Baseline approx 0.9-1.2. - stable Coronary 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 artery // Hx of CABG - History [...] Pickard MD 05/26/2025 9:49 AM * Gaye Fallon, MAHENDRA - 05/25/2025 5:54 PM EDT Garrido removed 1736, per protocol. Voiding trial started. * Osvaldo Gustafsonstella Michael, - 05/25/2025 11:27 AM EDT Vascular Surgery [...] 10:33 AM EDTAssociated Problem(s): Coronary 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 artery // Hx of CABG - History [...] (HCC) S/P transmetatarsal amputation of foot, left ([facility]) - Wound dehiscence over previous left TMA [...] mellitus, without long-term current use of insulin ([facility]) - A1c 5.3 - diet controlled - not following FSBS Hypertension associated with diabetes ([facility]) - at goal on current rx Chronic heart failure with preserved ejection fraction (HCC) - Echo 2023 normal EF. - Euvolemic on exam Stage 3a chronic kidney disease (HCC) - Baseline approx 0.9-1.2. - stable Coronary 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 artery // Hx of CABG - History [...] 7:56 AM EDTAssociated Problem(s): Coronary 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 artery // Hx of CABG - History [...] (HCC) S/P transmetatarsal amputation of foot, left ([facility]) - Wound dehiscence over previous left TMA [...] mellitus, without long-term current use of insulin ([facility]) - A1c 5.3 - diet controlled - not following FSBS Hypertension associated with diabetes ([facility]) - at goal on current rx Chronic heart failure with preserved ejection fraction (HCC) - Echo 2023 normal EF. - Euvolemic on exam Stage 3a chronic kidney disease (HCC) - Baseline approx 0.9-1.2. - stable Coronary 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 artery // Hx of CABG - History [...] professional for inpatient treatment team Palliative Care Physical Education Specialist Pastoral Care Interventions Spiritual-emotional support;Prayer Spiritual acuity Normal complexity Care Plan ([facility] Physical Education Specialist will continue to follow.) Length of time in minutes spent with pt/family/chart review 30 Referred By (Palliative Care follow up.) Palliative Care casing cooker visited with patient, as well as her sister/Sarah and [id number]/Scot. Patient shared that her conversation with Dr. [...] and family were receptive to prayer, which designer writer offered. [facility] casing cooker will continue to follow. Adry Alcazar, [facility] Physical Education Specialist, Palliative Care * Nicole Zaidi PTA - [...] 11:46 AM EDTAssociated Problem(s): Coronary 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 artery // Hx of CABG - History [...] mellitus, without long-term current use of insulin ([facility]) - A1c 5.3 - diet controlled - not following FSBS Hypertension associated with diabetes ([facility]) - at goal on current rx Chronic heart failure with preserved ejection fraction ([facility]) - Echo 2023 normal EF. - Euvolemic on exam Stage 3a chronic kidney disease ([facility]) - Baseline approx 0.9-1.2. - stable Coronary 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 artery // Hx of CABG - History [...] pts RN, pt not wanting to have LAKWan. Per [place] DERMATOLOGY TEACHER, she spoke with pt and she is [...] placement consent form previouslycompleted. Pharmacy updated in [employer]. Pt will need ambulance transport at discharge. NORA following * Lawrence Wolf MD - 05/23/2025 [...] Paroxysmal atrial fibrillation (HCC) Coronary 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 artery // Hx of CABG Type 2 [...] was seen in coordination with the physician social and human services assistant/nurse practitioner. Had long discussion with patient [...] like to obtain one pre-op. NPO past wy. Lawrence Wolf MD * Lauren Turk, FLORESITA - 05/23/2025 8:55 AM EDT 05/23/25 0855 OT Subjective Note Type Chart Review;Follow Up Treatment Attempt Patient Room/Unit 3312 Therapy delay reason Awaiting post procedure orders (comment) Clinical Course Noted planned AKA 05/24/25 * Leti Jefferson APRN - 05/22/2025 3:56 PM EDT Palliative Care Progress Note Consult Location: [facility] Length of Stay: 21 Assessment: [...] loss on independence. Spiritual distress: See [facility] Physical Education Specialist note for additional details. [facility] will continue [...] patient sharing she was not familiar with. [facility] has offered [facility] meeting with her sons involvement to [...] calendar day: None * Adry Alcazar - 05/22/2025 3:47 PM EDT 05/22/25 1543 Palliative interventions Spiritual support Spiritual support and counseling by palliative professional for patient Palliative Care Social Work Total time in minutes spent in the provision of Palliative Care 60 Palliative Care Physical Education Specialist Pastoral Care Interventions Goals of care counseling/education;Spiritual- emotional support Spiritual acuity Normal complexity Care Plan ([facility] Physical Education Specialist will follow up 05/23) Length of time in minutes spent with pt/family/chart review 60 Referred By (Palliative Care follow up) Palliative Care LIGHTING EQUIPMENT OPERATOR/B.Jefferson and Physical Education Specialist follow up with patient regarding her decision [...] look like after the amputation. After Palliative LIGHTING EQUIPMENT OPERATOR/Jefferson explained the possibilities of being bed or wheelchair bound, pt expressed fear - in both words and facial expression - that this would be a horrible way to live if it became reality. Patient reported that she has not shared her fears with sons. Physical Education Specialist encouraged her to think about further conversation with them in light of this new worry. Patient stated that she will give this some thought today and tomorrow. Coloring Room Worker committed to returning to bedside on 05/23 in the morning to see how pt feels about a possible family meeting. Patient confirmed that her treasure remains strong, and that she trusts that the Lord will be with herin whatever path she chooses. Adry Alcazar, [facility] Physical Education Specialist, Palliative Care * Coleman Moss COTA - [...] Where Assessed Edge of bed Feeding Assistance Moderate;railroad car repair supervisor/use appropriate utensil;Bring food/cup to mouth;Scoop/spear food [...] therapy recommended. Time In / Time Out [id number] IP OT Individual Treatment Minutes 42 * [...] 10:29 AM EDTAssociated Problem(s): Coronary 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 artery // Hx of CABG - History [...] (HCC) S/P transmetatarsal amputation of foot, left ([facility]) - Wound dehiscence over previous left TMA [...] approx 0.9-1.2. - stable Coronary 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 artery // Hx of CABG - History [...] Pickard MD 05/22/2025 10:27 AM * Felicia Tripp, MITCH,LD - 05/22/2025 10:22 AM EDT [facility] Nutrition Reassessment Nutrition Problem/Diagnosis: Nutrition Diagnosis Problem 1: Increased nutrient needs (specify) (kcal and pro) related to increased demand for energy/nutrients as evidenced by wounds. Status: New nutrition diagnosis Nutrition Prescription: Kcals: 8796-0598 kcal (25-30 kcal/kg, based on 54.4 kg) [...] Ordered Regular Diet DIET EFFECTIVE NOW 05/21/25 0925 GLUCERNA Therapeutic oral supplement 1 'box' Oral [...] Stool Occurrence: 1 Stool Appearance: Type 5 [place] Stool Chart Stool Color: Brown Stool Amount: [...] walker. Pt then transfered bed to [facility] back to bed. (I) with hygiene. Gait [...] therapy recommended. Time In / Time Out [id number] IP PT Treatment Minutes 26 The total [...] recommend AKA - now planned 05/24 * Stpehen Pickard MD - 05/21/2025 1:15 PM EDTAssociated [...] on AC d/t hx of SAH - INTERPRETER AND TRANSLATOR coreg * Stephen Pickard MD - 05/21/2025 [...] 1:15 PM EDTAssociated Problem(s): Coronary 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 artery // Hx of CABG - History [...] NOTE Assessment & Plan Diabetic foot infection ([facility]) S/P transmetatarsal amputation of foot, left ([facility]) - Wound dehiscence over previous left TMA [...] following - severe disease Paroxysmal atrial fibrillation ([facility]) - Heart rate controlled. - 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 - INTERPRETER AND TRANSLATOR coreg Type 2 diabetes mellitus, without long-term current use of insulin ([facility]) - A1c 5.3 - diet controlled - not following FSBS Hypertension associated with diabetes ([facility]) - at goal on current rx Chronic heart failure with preserved ejection fraction ([facility]) - Echo 2023 normal EF. - Euvolemic on exam Stage 3a chronic kidney disease ([facility]) - Baseline approx 0.9-1.2. - stable Coronary 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 artery // Hx of CABG - History [...] Problem(s): S/P transmetatarsal amputation of foot, left ([facility]) Wound dehiscence over previous left TMA site. [...] arterial studies 05/02 with significant PAD - SECURITY MANAGEMENT SPECIALIST stenosis Patent popliteal and TPT with severe stenosis Patent proximal INTERPRETER AND TRANSLATOR but occluded distally without reconstitution Patent DAREN with multifocal severe stenosis, occlusion at the level of the ankle and no distal reconstitution Significant small vessel disease in L foot * Carlos Manuel Landaverde II, MD - 05/20/2025 12:54 PM EDTAssociated Problem(s): Paroxysmal atrial fibrillation (HCC) Heart rate controlled. 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 - INTERPRETER AND TRANSLATOR coreg - cardiac monitoring -Rate controlled 05/20/25 * Carlos Manuel Landaverde II, MD - 05/20/2025 12:54 PM EDTAssociated Problem(s): Type 2 diabetes mellitus, without long-term current use of insulin (HCC) Last A1c 4.8 in 03/2024. INTERPRETER AND TRANSLATOR meds include none. - hold off on FSBS, correctional algorithm - rpt A1c 5.3 - stable 05/20/25 * Carlos Manuel Landaverde II, MD - 05/20/2025 12:54 PM EDTAssociated Problem(s): Hypertension associated with diabetes (HCC) Well controlled. - INTERPRETER AND TRANSLATOR coreg - monitor and adjust as needed -BP stable 05/20/25 * Carlos Manuel Landaverde II, MD - 05/20/2025 12:54 PM EDTAssociated Problem(s): Acute on chronic heart failure with preserved ejection fraction (HCC) Echo 2023 normal EF. Euvolemic on exam - monitor I/O, daily weights - diuresis: INTERPRETER AND TRANSLATOR lasix on hold - INTERPRETER AND TRANSLATOR coreg -Stable 05/20/25 * Carlos Manuel Landaverde II, MD - 05/20/2025 12:54 PM EDTAssociated Problem(s): Stage 3a chronic kidney disease (HCC) Cre 1.05 at admit. Baseline approx 0.9-1.2. -Cr 0.91 * Carlos Manuel Landaverde II, MD - 05/20/2025 12:54 PM EDTAssociated Problem(s): Coronary 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 artery // Hx of CABG History of [...] by CC/SW Yes Actual Discharge Plan 05/20/2025 SW Update: Pt did not want to be disturbed. Per chcart review, [facility] was planned for tomorrow, however, cancelled due to pt stating she wants family to be present. VasSurg following. Plan is for the pt to go back to [facility]. Pt will need an ambulance transport.Pharmacy updated in [facility] and post acute placement consent form previously [...] arterial studies 05/02 with significant PAD - SECURITY MANAGEMENT SPECIALIST stenosis Patent popliteal and TPT with severe stenosis Patent proximal INTERPRETER AND TRANSLATOR but occluded distally without reconstitution Patent DAREN with multifocal severe stenosis, occlusion at the level of the ankle and no distal reconstitution Significant small vessel disease in L foot Paroxysmal atrial fibrillation (HCC) Heart rate controlled. 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 - INTERPRETER AND TRANSLATOR coreg - cardiac monitoring -Rate controlled 05/20/25 Type 2 diabetes mellitus, without long-term current use of insulin (HCC) Last A1c 4.8 in 03/2024. INTERPRETER AND TRANSLATOR meds include none. - hold off on FSBS, correctional algorithm - rpt A1c 5.3 - stable 05/20/25 Hypertension associated with diabetes (HCC) Well controlled. - INTERPRETER AND TRANSLATOR coreg - monitor and adjust as needed -BP stable 05/20/25 Chronic heart failure with preserved ejection fraction (HCC) Echo 2023 normal EF. Euvolemic on exam - monitor I/O, daily weights - diuresis: INTERPRETER AND TRANSLATOR lasix on hold - INTERPRETER AND TRANSLATOR coreg -Stable 05/20/25 Stage 3a chronic kidney disease (HCC) Cre 1.05 at admit. Baseline approx 0.9-1.2. -Cr 0.91 Coronary 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 artery // Hx of CABG History of [...] Paroxysmal atrial fibrillation (HCC) Coronary 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 artery // Hx of CABG Type 2 [...] Intake/Output Summary (Last 24 hours) at 05/20/2025 0959 Last data filed at 05/20/2025 0206 Gross [...] Paroxysmal atrial fibrillation (HCC) Coronary 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 artery // Hx of CABG Type 2 [...] mellitus, without long-term current use of insulin ([facility]) Last A1c 4.8 in 03/2024. INTERPRETER AND TRANSLATOR meds include none. - hold off on [...] with God Care Plan Plan for Follow-Up Physical Education Specialist(s) remains available as needed Add to Follow Up List No Zurdo Dennison Physical Education Specialist, Pastoral and Spiritual Care For non-urgent requests, please place a Pastoral Care consult in [facility]. For all urgent matters, please send an urgent [facility] Secure Chat to the Pastoral Care group at your location. Between 11pm and 7am, please use On-Call Finder to send an [facility] Secure Chat to the on-call casing cooker. Pastoral Care office phone numbers: EDG/COV/GRT [phone], [place]OR[place] [phone], FTT [phone], DBN [phone] * Carlos Manuel Landaverde II, MD - 05/19/2025 11:25 AM EDTAssociated Problem(s): PAD (peripheral artery disease) History of angiogram 01/2025. - vascular consulted - arterial studies 05/02 with significant PAD - SECURITY MANAGEMENT SPECIALIST stenosis Patent popliteal and TPT with severe stenosis Patent proximal INTERPRETER AND TRANSLATOR but occluded distally without reconstitution Patent DAREN with multifocal severe stenosis, occlusion at the level of the ankle and no distal reconstitution Significant small vessel disease in L foot * Carlos Manuel Landaverde II, MD - 05/19/2025 11:25 AM EDTAssociated Problem(s): Paroxysmal atrial fibrillation (HCC) Heart rate controlled. 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 - INTERPRETER AND TRANSLATOR coreg - cardiac monitoring -Rate controlled 05/19/25 * Carlos Manuel Landaverde II, MD - 05/19/2025 11:25 AM EDTAssociated Problem(s): Hypertension associated with diabetes (HCC) Well controlled. - INTERPRETER AND TRANSLATOR coreg - monitor and adjust as needed -BP stable 05/19/25 * Carlos Manuel Landaverde II, MD - 05/19/2025 11:25 AM EDTAssociated Problem(s): Acute on chronic heart failure with preserved ejection fraction (HCC) Echo 2023 normal EF. Euvolemic on exam - monitor I/O, daily weights - diuresis: INTERPRETER AND TRANSLATOR lasix on hold - INTERPRETER AND TRANSLATOR coreg -Stable 05/19/25 * Carlos Manuel Landaverde II, MD - 05/19/2025 11:25 AM EDTAssociated Problem(s): Coronary 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 artery // Hx of CABG History of [...] appears stable at the moment * Carlos Manule Landaverde II, MD - 05/19/2025 11:25 AM [...] arterial studies 05/02 with significant PAD - SECURITY MANAGEMENT SPECIALIST stenosis Patent popliteal and TPT with severe stenosis Patent proximal INTERPRETER AND TRANSLATOR but occluded distally without reconstitution Patent DAREN with multifocal severe stenosis, occlusion at the level of the ankle and no distal reconstitution Significant small vessel disease in L foot Paroxysmal atrial fibrillation (HCC) Heart rate controlled. 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 - INTERPRETER AND TRANSLATOR coreg - cardiac monitoring -Rate controlled 05/19/25 Type 2 diabetes mellitus, without long-term current use of insulin (HCC) Last A1c 4.8 in 03/2024. INTERPRETER AND TRANSLATOR meds include none. - hold off on FSBS, correctional algorithm - rpt A1c 5.3 - stable 05/19/25 Hypertension associated with diabetes (HCC) Well controlled. - INTERPRETER AND TRANSLATOR coreg - monitor and adjust as needed -BP stable 05/19/25 Chronic heart failure with preserved ejection fraction (HCC) Echo 2023 normal EF. Euvolemic on exam - monitor I/O, daily weights - diuresis: INTERPRETER AND TRANSLATOR lasix on hold - INTERPRETER AND TRANSLATOR coreg -Stable 05/19/25 Stage 3a chronic kidney disease (HCC) Cre 1.05 at admit. Baseline approx 0.9-1.2. 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 artery // Hx of CABG History of [...] Paroxysmal atrial fibrillation (HCC) Coronary 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 artery // Hx of CABG Type 2 [...] visit 05/18/25 Visited With Patient Visited By Physical Education Specialist Referral Source Physical Education Specialist Reason for Visit Spiritual, emotional or social support Patient Assessment Patient Appears Tearful;Positive (Skyler has a strong treasure in God, prays often, appreciates prayer and PC support) Patient Rastafari at Registration Taoist Patient Rastafari Upon Assessment Taoist Spiritual Strengths and Coping Resources Meaningful relationship or connection with God Spiritual and Emotional Concerns Fear (fear concerning upcoming procedure; despite fears, Skyler shared she trusts God ultimately, no matter what happens) Patient Spiritual Wellbeing Appears to be coping adequately Interventions with Patient Relationship Building Interventions Cultivated a relationship of care and support;Listened empathetically Taoist Interventions Prayer with patient or family Exploration Interventions Helped identify and clarify feelings or concerns Outcomes Expressed Outcomes Appreciative of prayer/ritual;Appreciative of visit;Able to discuss emotions Care Plan Plan for Follow-Up Physical Education Specialist(s) will continue to follow throughout admission Add to Follow Up List Yes Khalida Schultz Physical Education Specialist, Pastoral and Spiritual Care For non-urgent requests, please place a Pastoral Care consult in [facility]. For all urgent matters, please send an urgent [facility] Secure Chat to the Pastoral Care group at your location. Between 11pm and 7am, please use On-Call Finder to send an [facility] Secure Chat to the on-call casing cooker. Pastoral Care office phone numbers: EDG/COV/GRT [phone], [place] [phone], FTT [phone], DBN [phone] * Carlos Manuel Landaverde II, MD - [...] arterial studies 05/02 with significant PAD - SECURITY MANAGEMENT SPECIALIST stenosis Patent popliteal and TPT with severe stenosis Patent proximal INTERPRETER AND TRANSLATOR but occluded distally without reconstitution Patent DAREN with multifocal severe stenosis, occlusion at the level of the ankle and no distal reconstitution Significant small vessel disease in L foot * Carlos Manuel Landaverde II, MD - 05/18/2025 8:38 AM EDTAssociated Problem(s): Paroxysmal atrial fibrillation (HCC) Heart rate controlled. 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 - INTERPRETER AND TRANSLATOR coreg - cardiac monitoring -Rate controlled 05/18/25 * Carlos Manuel Landaverde II, MD - 05/18/2025 8:38 AM EDTAssociated Problem(s): Type 2 diabetes mellitus, without long-term current use of insulin (HCC) Last A1c 4.8 in 03/2024. INTERPRETER AND TRANSLATOR meds include none. - hold off on FSBS, correctional algorithm - rpt A1c 5.3 * Carlos Manuel Landaverde II, MD - 05/18/2025 8:38 AM EDTAssociated Problem(s): Hypertension associated with diabetes (HCC) Well controlled. - INTERPRETER AND TRANSLATOR coreg - monitor and adjust as needed -BP stable 05/18/25 * Carlos Manuel Landaverde II, MD - 05/18/2025 8:38 AM EDTAssociated Problem(s): Acute on chronic heart failure with preserved ejection fraction (HCC) Echo 2023 normal EF. Euvolemic on exam - monitor I/O, daily weights - diuresis: INTERPRETER AND TRANSLATOR lasix on hold - INTERPRETER AND TRANSLATOR coreg -Stable 05/18/25 * Carlos Manuel Landaverde II, MD - 05/18/2025 8:38 AM EDTAssociated Problem(s): Coronary 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 artery // Hx of CABG History of [...] arterial studies 05/02 with significant PAD - SECURITY MANAGEMENT SPECIALIST stenosis Patent popliteal and TPT with severe stenosis Patent proximal INTERPRETER AND TRANSLATOR but occluded distally without reconstitution Patent DAREN with multifocal severe stenosis, occlusion at the level of the ankle and no distal reconstitution Significant small vessel disease in L foot Paroxysmal atrial fibrillation (HCC) Heart rate controlled. 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 - INTERPRETER AND TRANSLATOR coreg - cardiac monitoring -Rate controlled 05/18/25 Type 2 diabetes mellitus, without long-term current use of insulin ([facility]) Last A1c 4.8 in 03/2024. INTERPRETER AND TRANSLATOR meds include none. - hold off on FSBS, correctional algorithm - rpt A1c 5.3 Hypertension associated with diabetes ([facility]) Well controlled. - INTERPRETER AND TRANSLATOR coreg - monitor and adjust as needed -BP stable 05/18/25 Chronic heart failure with preserved ejection fraction ([facility]) Echo 2023 normal EF. Euvolemic on exam - monitor I/O, daily weights - diuresis: INTERPRETER AND TRANSLATOR lasix on hold - INTERPRETER AND TRANSLATOR coreg -Stable 05/18/25 Stage 3a chronic kidney disease ([facility]) Cre 1.05 at admit. Baseline approx 0.9-1.2. 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 artery // Hx of CABG History of [...] dehiscence S/P transmetatarsal amputation of foot, left ([facility]) Stage 3a chronic kidney disease (HCC) Anemia in other chronic diseases classified elsewhere PAD (peripheral artery disease) Chronic heart failure with preserved ejection fraction (HCC) Paroxysmal atrial fibrillation ([facility]) Coronary 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 artery // Hx of CABG Type 2 diabetes mellitus, without long-term current use of insulin ([facility]) Hypertension associated with diabetes ([facility]) Subjective: Required enema last night, lots of [...] Gottlieb RD,TIFFANY - 05/17/2025 2:51 PM EDT [facility] Nutrition Malnutrition Reassessment Evidence Supported Diagnosis: No malnutrition identified Nutrition Prescription: Kcals: [id number] kcal (25-30 kcal/kg, based on 54.4 kg) [...] much consumed. Noted pt now agreeable to Lina ZAPIEN. Will continue to monitor. Anthropometric Measurements: Height: [...] Packet at 05/17/25 0800 * Coleman Moss PLEITEZ - 05/17/2025 2:41 PM EDT 05/17/25 1431 OT Subjective Note Type Chart Review;Treatment/Progress Patient Room/Unit 3318 OT Subjective Comments #1 Upon arrival, pt found resting in bed and agreeable to participate in OT with encouragement. Others Present/Assisting Oumou PT. Discharge Information This progress note will serve [...] therapy recommended. Time In / Time Out [id number] IP OT Individual Treatment Minutes 33 * Radha Looney, PT - 05/17/2025 2:24 PM EDT 05/17/25 [...] therapy recommended. Time In / Time Out [id number] IP PT Treatment Minutes 39 The total [...] 1:37 PM EDTAssociated Problem(s): Coronary 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 artery // Hx of CABG History of [...] prior to admission Actual Discharge Plan 05/17/2025 SW Update: Pt transferred from , was previously on 3C. Per chart review, pt and care team, pt agreeable to L AKA. VasSurg following, surgery not scheduled at this time. NORA called and followed up with pts sister. NORA called and updated Roxanna with [facility]. They will still continue to follow. Post acute placement consent form previously completed. Pharmacy updated in [employer]. Pt will need ambulance transport at discharge. [...] arterial studies 05/02 with significant PAD - SECURITY MANAGEMENT SPECIALIST stenosis Patent popliteal and TPT with severe stenosis Patent proximal INTERPRETER AND TRANSLATOR but occluded distally without reconstitution Patent DAREN with multifocal severe stenosis, occlusion at the level of the ankle and no distal reconstitution Significant small vessel disease in L foot * Carlos Manuel Landaverde II, MD - 05/17/2025 9:16 AM EDTAssociated Problem(s): Paroxysmal atrial fibrillation (HCC) Heart rate controlled. 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 - INTERPRETER AND TRANSLATOR coreg - cardiac monitoring -Rate controlled 05/17/25 * Carlos Manuel Landaverde II, MD - 05/17/2025 9:16 AM EDTAssociated Problem(s): Type 2 diabetes mellitus, without long-term current use of insulin (HCC) Last A1c 4.8 in 03/2024. INTERPRETER AND TRANSLATOR meds include none. - hold off on FSBS, correctional algorithm - rpt A1c 5.3 * Carlos Manuel Landaverde II, MD - 05/17/2025 9:16 AM EDTAssociated Problem(s): Hypertension associated with diabetes (HCC) Well controlled. - INTERPRETER AND TRANSLATOR coreg - monitor and adjust as needed -BP stable 05/17/25 * Carlos Manuel Landaverde II, MD - 05/17/2025 9:16 AM EDTAssociated Problem(s): Acute on chronic heart failure with preserved ejection fraction (HCC) Echo 2023 normal EF. Euvolemic on exam - monitor I/O, daily weights - diuresis: INTERPRETER AND TRANSLATOR lasix on hold - INTERPRETER AND TRANSLATOR coreg -Stable 05/17/25 * Carlos Manuel Landaverde [...] arterial studies 05/02 with significant PAD - SECURITY MANAGEMENT SPECIALIST stenosis Patent popliteal and TPT with severe stenosis Patent proximal INTERPRETER AND TRANSLATOR but occluded distally without reconstitution Patent DAREN with multifocal severe stenosis, occlusion at the level of the ankle and no distal reconstitution Significant small vessel disease in L foot Paroxysmal atrial fibrillation (HCC) Heart rate controlled. 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 - INTERPRETER AND TRANSLATOR coreg - cardiac monitoring -Rate controlled 05/17/25 Type 2 diabetes mellitus, without long-term current use of insulin ([facility]) Last A1c 4.8 in 03/2024. INTERPRETER AND TRANSLATOR meds include none. - hold off on FSBS, correctional algorithm - rpt A1c 5.3 Hypertension associated with diabetes ([facility]) Well controlled. - INTERPRETER AND TRANSLATOR coreg - monitor and adjust as needed -BP stable 05/17/25 Chronic heart failure with preserved ejection fraction ([facility]) Echo 2023 normal EF. Euvolemic on exam - monitor I/O, daily weights - diuresis: INTERPRETER AND TRANSLATOR lasix on hold - INTERPRETER AND TRANSLATOR coreg -Stable 05/17/25 Stage 3a chronic kidney disease (HCC) Cre 1.05 at admit. Baseline approx 0.9-1.2. 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 artery // Hx of CABG History of [...] Paroxysmal atrial fibrillation (HCC) Coronary 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 artery // Hx of CABG Type 2 diabetes mellitus, without long-term current use of insulin ([facility]) Hypertension associated with diabetes ([facility]) Subjective: Resting, NAD Objective: BP 125/77 Pulse [...] Ordered Regular Diet DIET EFFECTIVE NOW 05/10/25 4471 Comments: Pt transfer to unit A/O VSS [...] arterial studies 05/02 with significant PAD - SECURITY MANAGEMENT SPECIALIST stenosis Patent popliteal and TPT with severe stenosis Patent proximal INTERPRETER AND TRANSLATOR but occluded distally without reconstitution Patent DAREN with multifocal severe stenosis, occlusion at the level of the ankle and no distal reconstitution Significant small vessel disease in L foot * Carlos Manuel Landaverde II, MD - 05/16/2025 2:50 PM EDTAssociated Problem(s): Paroxysmal atrial fibrillation (HCC) Heart rate controlled. 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 - INTERPRETER AND TRANSLATOR coreg - cardiac monitoring -Rate controlled 05/16/25 * Carlos Manuel Landaverde II, MD - 05/16/2025 2:50 PM EDTAssociated Problem(s): Type 2 diabetes mellitus, without long-term current use of insulin (HCC) Last A1c 4.8 in 03/2024. INTERPRETER AND TRANSLATOR meds include none. - hold off on FSBS, correctional algorithm - rpt A1c 5.3 * Carlos Manuel Landaverde II, MD - 05/16/2025 2:50 PM EDTAssociated Problem(s): Hypertension associated with diabetes (HCC) Well controlled. - INTERPRETER AND TRANSLATOR coreg - monitor and adjust as needed -BP stable 05/16/25 * Carlos Manuel Landaverde II, MD - 05/16/2025 2:50 PM EDTAssociated Problem(s): Acute on chronic heart failure with preserved ejection fraction (HCC) Echo 2023 normal EF. Euvolemic on exam - monitor I/O, daily weights - diuresis: INTERPRETER AND TRANSLATOR lasix on hold - INTERPRETER AND TRANSLATOR coreg -Stable 05/16/25 * Carlos Manuel Landaverde II, MD - 05/16/2025 2:50 PM EDTAssociated Problem(s): Stage 3a chronic kidney disease (HCC) Cre 1.05 at admit. Baseline approx 0.9-1.2. 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 - INTERPRETER AND TRANSLATOR coreg - cardiac monitoring -Rate controlled 05/16/25 Type 2 diabetes mellitus, without long-term current use of insulin ([facility]) Last A1c 4.8 in 03/2024. INTERPRETER AND TRANSLATOR meds include none. - hold off on FSBS, correctional algorithm - rpt A1c 5.3 Hypertension associated with diabetes ([facility]) Well controlled. - INTERPRETER AND TRANSLATOR coreg - monitor and adjust as needed -BP stable 05/16/25 Chronic heart failure with preserved ejection fraction ([facility]) Echo 2023 normal EF. Euvolemic on exam - monitor I/O, daily weights - diuresis: INTERPRETER AND TRANSLATOR lasix on hold - INTERPRETER AND TRANSLATOR coreg -Stable 05/16/25 Stage 3a chronic kidney disease (HCC) Cre 1.05 at admit. Baseline approx 0.9-1.2. 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 artery // Hx of CABG History of [...] Paroxysmal atrial fibrillation (HCC) Coronary 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 artery // Hx of CABG Type 2 diabetes mellitus, without long-term current use of insulin (HCC) Hypertension associated with diabetes ([facility]) Subjective: States she talked to son and [...] 1257 Ongoing Discharge Planning Evaluation Completed by CC/NORA Yes Who does pt identify as their caregiver/support person who will be their active partner in the dc planning process Pt identified caregiver/support person for dc planning process Caregiver Name Adriana=sister Anticipated post-acute care needs Nursing Facility Discussed discharge plans with Patient/Family/Caregiver/Support Person Yes, Discussed with patient Discussed discharge plans with Care Team at [facility] Yes, with nurse in attendance;Yes, with doctor in attendance Patient's goals for recovery Return to Prior Level of Functioning;[place] in self-care Discharge to SNF;Acute Rehab Actual Discharge Plan 05/16/2025-NORA UPDATE-Nora reviewed chart. NORA met with patient bedside. Discusseddischarge plan. She stated that she has decided to have surgery. Patient's plan at this time is to [facility] with ambulance transport. NORA will continue to follow. * Wong Tenisha, PT - 05/16/2025 11:27 AM EDT 05/16/25 [...] not bring RW with her req Silvestre forstand>sit; educated on safety and sequencing with turns/transfers [...] therapy recommended. Time In / Time Out [id number] IP PT Treatment Minutes 23 The total [...] from the original note were not included. 05/15/25 2100 Reason for Visit Date of visit 05/15/25 Visited With Patient Visited By Physical Education Specialist Reason for Visit Decision making;Spiritual, emotional or social support;Follow-up Patient Assessment Patient Appears Anxious;Fearful;Expressed discomfort;Lonely;Pessimistic;Resistant;Sad;Tearful;Tired;Weary Patient Rastafari at Registration Taoist Spiritual Strengths and Coping Resources Determination;Accepts help [...] a relationship of care and support;Listened empathetically Taoist Interventions Prayer with patient or family Exploration Interventions Explored alternatives;Discussed illness/injury and its impact;Identified and reinforced appropriate coping strategies and strengths;Provided caring and supportive presence;Provided safe space to process emotions or concerns Empowerment Interventions Affirmed patient's experience Outcomes Expressed Outcomes Met spiritual needs;Identified priorities;Able to discuss emotions;Appreciative of visit;Appreciative of prayer/ritual;Progressed toward acceptance Care Plan Plan for Follow-Up Physical Education Specialist(s) will continue to follow throughout admission Add to Follow Up List Yes Rev. Yue Barajas M.DivMin Physical Education Specialist, Pastoral and Spiritual Care For non-urgent requests, please place a Pastoral Care consult in [facility]. For all urgent matters, please send an urgent [facility] Secure Chat to the Pastoral Care group at your location. Between 11pm and 7am, please use On-Call Finder to send an [facility] Secure Chat to the on-call casing cooker. Pastoral Care office phone numbers: EDG/COV/GRT [phone], [place] [phone], FTT [phone], DBN [phone] * Carlos Manuel Landaverde II, MD - [...] arterial studies 05/02 with significant PAD - SECURITY MANAGEMENT SPECIALIST stenosis Patent popliteal and TPT with severe stenosis Patent proximal INTERPRETER AND TRANSLATOR but occluded distally without reconstitution Patent DAREN with multifocal severe stenosis, occlusion at the level of the ankle and no distal reconstitution Significant small vessel disease in L foot * Carlos Manuel Landaverde II, MD - 05/15/2025 2:22 PM EDTAssociated Problem(s): Paroxysmal atrial fibrillation (HCC) Heart rate controlled. 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 - INTERPRETER AND TRANSLATOR coreg - cardiac monitoring -Heart rate 94 * Carlos Manuel Landaverde II, MD - 05/15/2025 2:22 PM EDTAssociated Problem(s): Type 2 diabetes mellitus, without long-term current use of insulin (HCC) Last A1c 4.8 in 03/2024. INTERPRETER AND TRANSLATOR meds include none. - hold off on FSBS, correctional algorithm - rpt A1c 5.3 * Carlos Manuel Landaverde II, MD - 05/15/2025 2:22 PM EDTAssociated Problem(s): Hypertension associated with diabetes (HCC) Well controlled. - INTERPRETER AND TRANSLATOR coreg - monitor and adjust as needed -BP stable 05/15/25 * Carlos Manuel Landaverde II, MD - 05/15/2025 2:22 PM EDTAssociated Problem(s): Acute on chronic heart failure with preserved ejection fraction (HCC) Echo 2023 normal EF. Euvolemic on exam - monitor I/O, daily weights - diuresis: INTERPRETER AND TRANSLATOR lasix on hold - INTERPRETER AND TRANSLATOR coreg -Stable 05/15/25 * Carlos Manuel Landaverde II, MD - 05/15/2025 2:22 PM EDTAssociated Problem(s): Stage 3a chronic kidney disease (HCC) Cre 1.05 at admit. Baseline approx 0.9-1.2. 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 - INTERPRETER AND TRANSLATOR coreg - cardiac monitoring -Heart rate 94 Type 2 diabetes mellitus, without long-term current use of insulin ([facility]) Last A1c 4.8 in 03/2024. INTERPRETER AND TRANSLATOR meds include none. - hold off on FSBS, correctional algorithm - rpt A1c 5.3 Hypertension associated with diabetes ([facility]) Well controlled. - INTERPRETER AND TRANSLATOR coreg - monitor and adjust as needed -BP stable 05/15/25 Chronic heart failure with preserved ejection fraction ([facility]) Echo 2023 normal EF. Euvolemic on exam - monitor I/O, daily weights - diuresis: INTERPRETER AND TRANSLATOR lasix on hold - INTERPRETER AND TRANSLATOR coreg -Stable 05/15/25 Stage 3a chronic kidney disease ([facility]) Cre 1.05 at admit. Baseline approx 0.9-1.2. 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 Had another direct [...] Laboratory data and diagnostic testing reviewed 05/15/25. Dw pharmacy Carlos Manuel Landaverde II, MD 05/15/2025 2:19 PM 58min total spent * Leit Jefferson APRN - 05/15/2025 1:34 PM EDT Palliative Care Progress Note Consult Location: [facility] Length of Stay: 14 Assessment: Skyler Bautista is a 84 y.o. female ith PVD who presented to the ED with dehiscence of left TMA. Withinitial surgery on 03/09/25, with revision on 03/18/25. Patient has been presented with the treatment options of Lina ZAPIEN. Patient with multiple underlying [...] majority rules, /. Surrogate by: DEANDRA per SUMEET Palliative Plan of Care: Goals: Patient needing [...] distress: None at this time. See [facility] Physical Education Specialist note for additional details. [facility] will continue [...] by palliative professional for patient Palliative Care Physical Education Specialist Pastoral Care Interventions Spiritual-emotional support;Goals of care counseling/education;Prayer;Address theological questions/concerns Spiritual acuity Normal complexity Care Plan ([facility] Physical Education Specialist will attempt to follow up on 05/16.) Length of time in minutes spent with pt/family/chart review 60 Referred By Palliative Care Nurse Practitioner (Everett BROWN/Mitzy) Palliative Care DERMATOLOGY TEACHER/Mitzy and Physical Education Specialist met with patient to talk about her [...] most important thing in her life . DERMATOLOGY TEACHER/Li introduced the alternative option of pursuing hospice care, but pt did not share her thoughts about this possibility. Patient has a strong Taoist treasure, but questions why she continues to suffer despite praying every day for healing. Coloring Room Worker explored with patient the notion that God hears her prayers, though sometimes responds in ways that are different from what we hope. Patient acknowledged that she trusts Godis with her and takes care of her. Physical Education Specialist encouraged patient to listen to what God might want to say to her heart, and pt stated that she will try to do this. Coloring Room Worker prayed with patient for God to reveal God's plan as she continues to think about whether or not to choose amputation. Patient requested follow up casing cooker visits. Coloring Room Worker will attempt to see dora on 05/16. Adry Alcazar, [facility] Physical Education Specialist, Palliative Care * Shonna Park RN - 05/14/2025 11:18 PM EDT assumed care for pt from 1500 - 2300 was told by another RN that she was impacted and stool was very hard and un passable. provider madeaware and fleets enema ordered and administered by this RN at 2203. no stool from enema at this point last bm was 5 days ago * Nicole Zaidi PTA - 05/14/2025 3:12 PM EDT 05/14/25 1454 [...] LE but she did some with transfers [id number] but didn't with static standing. May benefit [...] therapy recommended. Time In / Time Out [id number] IP PT Treatment Minutes 31 The total [...] associated with diabetes (HCC) Well controlled. - INTERPRETER AND TRANSLATOR coreg - monitor and adjust as needed -BP stable 05/14/25 * Carlos Manuel Landaverde II, MD - 05/14/2025 2:51 PM EDTAssociated Problem(s): Acute on chronic heart failure with preserved ejection fraction (HCC) Echo 2023 normal EF. Euvolemic on exam - monitor I/O, daily weights - diuresis: INTERPRETER AND TRANSLATOR lasix on hold - INTERPRETER AND TRANSLATOR coreg -Stable 05/14/25 * Carlos Manuel Landaverde II, MD - 05/14/2025 2:51 PM EDTAssociated Problem(s): Goals of care, counseling/discussion Palliative Care on boad * Hallie Silva RD,LD - 05/14/2025 1:34 PM EDT [facility] Nutrition Reassessment Nutrition Prescription: Kcals: [phone] kcal (25-30 kcal/kg, based on 54.4 kg) [...] Stool Occurrence: 1 Stool Appearance: Type 4 [place] Stool Chart Stool Color: Michael Stool Amount: [...] arterial studies 05/02 with significant PAD - SECURITY MANAGEMENT SPECIALIST stenosis Patent popliteal and TPT with severe stenosis Patent proximal INTERPRETER AND TRANSLATOR but occluded distally without reconstitution Patent DAREN with multifocal severe stenosis, occlusion at the level of the ankle and no distal reconstitution Significant small vessel disease in L foot * Carlos Manuel Landaverde II, MD - 05/14/2025 10:10 AM EDTAssociated Problem(s): Paroxysmal atrial fibrillation (HCC) Heart rate controlled. 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 - INTERPRETER AND TRANSLATOR coreg - cardiac monitoring -Heart rate 94 * Carlos Manuel Landaverde II, MD - 05/14/2025 10:10 AM EDTAssociated Problem(s): Type 2 diabetes mellitus, without long-term current use of insulin (HCC) Last A1c 4.8 in 03/2024. INTERPRETER AND TRANSLATOR meds include none. - hold off on [...] 10:10 AM EDTAssociated Problem(s): Coronary 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 artery // Hx of CABG History of [...] arterial studies 05/02 with significant PAD - SECURITY MANAGEMENT SPECIALIST stenosis Patent popliteal and TPT with severe stenosis Patent proximal INTERPRETER AND TRANSLATOR but occluded distally without reconstitution Patent DAREN with multifocal severe stenosis, occlusion at the level of the ankle and no distal reconstitution Significant small vessel disease in L foot Paroxysmal atrial fibrillation (HCC) Heart rate controlled. 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 - INTERPRETER AND TRANSLATOR coreg - cardiac monitoring -Heart rate 94 Type 2 diabetes mellitus, without long-term current use of insulin ([facility]) Last A1c 4.8 in 03/2024. INTERPRETER AND TRANSLATOR meds include none. - hold off on FSBS, correctional algorithm - rpt A1c 5.3 Hypertension associated with diabetes ([facility]) Well controlled. - INTERPRETER AND TRANSLATOR coreg - monitor and adjust as needed -BP stable 05/14/25 Chronic heart failure with preserved ejection fraction ([facility]) Echo 2023 normal EF. Euvolemic on exam - monitor I/O, daily weights - diuresis: INTERPRETER AND TRANSLATOR lasix on hold - INTERPRETER AND TRANSLATOR coreg -Stable 05/14/25 Stage 3a chronic kidney disease ([facility]) Cre 1.05 at admit. Baseline approx 0.9-1.2. 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 artery // Hx of CABG History of [...] dehiscence S/P transmetatarsal amputation of foot, left ([facility]) Stage 3a chronic kidney disease (HCC) Anemia in other chronic diseases classified elsewhere PAD (peripheral artery disease) Chronic heart failure with preserved ejection fraction (HCC) Paroxysmal atrial fibrillation (HCC) Coronary 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 artery // Hx of CABG Type 2 [...] on AC d/t hx of SAH - INTERPRETER AND TRANSLATOR coreg - cardiac monitoring -Heart rate 94 * Kaz Robertson MD - 05/13/2025 1:41 PM EDTAssociated Problem(s): Hypertension associated with diabetes (HCC) Well controlled. - INTERPRETER AND TRANSLATOR coreg - monitor and adjust as needed [...] visit 05/13/25 Visited With Patient Visited By Physical Education Specialist Reason for Visit Decision making (Pt reports she meets with doctor today.) Patient Assessment Patient Appears Fearful;Dissatisfied (Pt expressed fears/anxiety over a possible aka. Pt to meet with doctor today.) Patient Rastafari at Registration Taoist Spiritual Strengths and Coping Resources Hopefulness (Pt is a person of treasure/spoke of divine love and hope.) Spiritual and Emotional Concerns Struggling to find meaning in pain/suffering;Lack of peace;Fear Interventions with Patient Relationship Building Interventions Listened empathetically Taoist Interventions Prayer with patient or family Exploration [...] of prayer/ritual Care Plan Plan for Follow-Up Physical Education Specialist(s) will continue to follow throughout admission Add [...] Paroxysmal atrial fibrillation (HCC) Coronary 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 artery // Hx of CABG Type 2 [...] arterial studies 05/02 with significant PAD - SECURITY MANAGEMENT SPECIALIST stenosis Patent popliteal and TPT with severe stenosis Patent proximal INTERPRETER AND TRANSLATOR but occluded distally without reconstitution Patent DAREN with multifocal severe stenosis, occlusion at the level of the ankle and no distal reconstitution Significant small vessel disease in L foot * Kaz Robertson MD - 05/13/2025 9:08 AM EDTAssociated Problem(s): Type 2 diabetes mellitus, without long-term current use of insulin (HCC) Last A1c 4.8 in 03/2024. INTERPRETER AND TRANSLATOR meds include none. - hold off on FSBS, correctional algorithm - rpt A1c 5.3 * Kaz Robertson MD - 05/13/2025 9:08 AM EDTAssociated Problem(s): Acute on chronic heart failure with preserved ejection fraction (HCC) Echo 2023 normal EF. Euvolemic on exam - monitor I/O, daily weights - diuresis: INTERPRETER AND TRANSLATOR lasix on hold - INTERPRETER AND TRANSLATOR coreg * Kaz Robertson MD - 05/13/2025 9:08 AM EDTAssociated Problem(s): Stage 3a chronic kidney disease (HCC) Cre 1.05 at admit. Baseline approx 0.9-1.2. - caution with contrast - note plans for angiogram - monitor renal function closely - avoid hypotension, nephrotoxins as able * Kaz Robertson MD - 05/13/2025 9:08 AM EDTAssociated Problem(s): Coronary 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 artery // Hx of CABG History of [...] arterial studies 05/02 with significant PAD - SECURITY MANAGEMENT SPECIALIST stenosis Patent popliteal and TPT with severe stenosis Patent proximal INTERPRETER AND TRANSLATOR but occluded distally without reconstitution Patent DAREN with multifocal severe stenosis, occlusion at the level of the ankle and no distal reconstitution Significant small vessel disease in L foot Paroxysmal atrial fibrillation (HCC) Heart rate controlled. 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 - INTERPRETER AND TRANSLATOR coreg - cardiac monitoring -Heart rate 94 Type 2 diabetes mellitus, without long-term current use of insulin ([facility]) Last A1c 4.8 in 03/2024. INTERPRETER AND TRANSLATOR meds include none. - hold off on FSBS, correctional algorithm - rpt A1c 5.3 Hypertension associated with diabetes ([facility]) Well controlled. - INTERPRETER AND TRANSLATOR coreg - monitor and adjust as needed -Blood pressure 113/46 Chronic heart failure with preserved ejection fraction ([facility]) Echo 2023 normal EF. Euvolemic on exam - monitor I/O, daily weights - diuresis: INTERPRETER AND TRANSLATOR lasix on hold - INTERPRETER AND TRANSLATOR coreg Stage 3a chronic kidney disease ([facility]) Cre 1.05 at admit. Baseline approx 0.9-1.2. 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 artery // Hx of CABG History of [...] foot, now with peripheral vascular disease necessitating [id number] amputation. Patient needs to decide on further surgical intervention Estimated Date of Discharge: 05/14/2025 Date of Admission: 04/30/2025 Chief Complaint: Foot pain Subjective: Patient seen and examined. Patient once again does not remember who I am despite me seeing her for the past 6 days. She just got done talking with vascular surgery who recommended an [id number] amputation. Will need to discuss with family [...] BAUTISTA Department: DEPID Room: 3326 Gender: Female Rampman: CHANTEL : 1940 Requested By: DONNIE EDUARDO PLUMMER Order Number: [id number] Reading MD: Isidro Kennedy Measurements Intervals [place] Rate: 134 P: 203 CT: 145 QRS: -6 QRSD: 93 T: -78 [...] for technique and Min x2 for balance. [employer] [employer] for walker management. Balance Sitting Balance 2+/5 [...] Functional Percentage 50.11 AM PAC Daily Activity [facility] G Code Modifier CK Education Education To [...] therapy recommended. Time In / Time Out [id number] IP OT Individual Treatment Minutes 42 * [...] 24hrs? Request addressed by PT * Irena Mckeon, RN - 05/12/2025 10:50 AM EDT Pt [...] arterial studies 05/02 with significant PAD - SECURITY MANAGEMENT SPECIALIST stenosis Patent popliteal and TPT with severe stenosis Patent proximal INTERPRETER AND TRANSLATOR but occluded distally without reconstitution Patent DAREN with multifocal severe stenosis, occlusion at the level of the ankle and no distal reconstitution Significant small vessel disease in L foot * Kaz Robertson MD - 05/12/2025 10:17 AM EDTAssociated Problem(s): Paroxysmal atrial fibrillation (HCC) Heart rate controlled. 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 - INTERPRETER AND TRANSLATOR coreg - cardiac monitoring -Heart rate 83 * Kaz Robertson MD - 05/12/2025 10:17 AM EDTAssociated Problem(s): Type 2 diabetes mellitus, without long-term current use of insulin (HCC) Last A1c 4.8 in 03/2024. INTERPRETER AND TRANSLATOR meds include none. - hold off on FSBS, correctional algorithm - rpt A1c 5.3 * Kaz Robertson MD - 05/12/2025 10:17 AM EDTAssociated Problem(s): Hypertension associated with diabetes (HCC) Well controlled. - INTERPRETER AND TRANSLATOR coreg - monitor and adjust as needed -Blood pressure 122/57 * Kaz Robertson MD - 05/12/2025 10:17 AM EDTAssociated Problem(s): Acute on chronic heart failure with preserved ejection fraction (HCC) Echo 2023 normal EF. Euvolemic on exam - monitor I/O, daily weights - diuresis: INTERPRETER AND TRANSLATOR lasix on hold - INTERPRETER AND TRANSLATOR coreg * Kaz Robertson MD - 05/12/2025 10:17 AM EDTAssociated Problem(s): Stage 3a chronic kidney disease (HCC) Cre 1.05 at admit. Baseline approx 0.9-1.2. - caution with contrast - note plans for angiogram - monitor renal function closely - avoid hypotension, nephrotoxins as able * Kaz Robertson MD - 05/12/2025 10:17 AM EDTAssociated Problem(s): Coronary 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 artery // Hx of CABG History of [...] arterial studies 05/02 with significant PAD - SECURITY MANAGEMENT SPECIALIST stenosis Patent popliteal and TPT with severe stenosis Patent proximal INTERPRETER AND TRANSLATOR but occluded distally without reconstitution Patent DAREN with multifocal severe stenosis, occlusion at the level of the ankle and no distal reconstitution Significant small vessel disease in L foot Paroxysmal atrial fibrillation (HCC) Heart rate controlled. 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 - INTERPRETER AND TRANSLATOR coreg - cardiac monitoring -Heart rate 83 Type 2 diabetes mellitus, without long-term current use of insulin ([facility]) Last A1c 4.8 in 03/2024. INTERPRETER AND TRANSLATOR meds include none. - hold off on FSBS, correctional algorithm - rpt A1c 5.3 Hypertension associated with diabetes ([facility]) Well controlled. - INTERPRETER AND TRANSLATOR coreg - monitor and adjust as needed -Blood pressure 122/57 Chronic heart failure with preserved ejection fraction ([facility]) Echo 2023 normal EF. Euvolemic on exam - monitor I/O, daily weights - diuresis: INTERPRETER AND TRANSLATOR lasix on hold - INTERPRETER AND TRANSLATOR coreg Stage 3a chronic kidney disease ([facility]) Cre 1.05 at admit. Baseline approx 0.9-1.2. 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 artery // Hx of CABG History of [...] Ventricular rate persistently at 134. Final Result [facility] Test Date: 2025-04-30 Pat Name: SKYLER BAUTISTA Department: DEPID Room: 3326 Gender: Female Rampman: CHANTEL : 1940 Requested By: DONNIE PLUMMER Order Number: [id number] Reading MD: Isidro Kennedy Measurements Intervals [place] Rate: 134 P: 203 CT: 145 QRS: -6 QRSD: 93 T: -78 [...] Visited With Patient and family/visitors Visited By Physical Education Specialist Reason for Visit Spiritual, emotional or social support Patient Assessment Patient Appears Anxious;Expressed discomfort;Fearful;Grateful/Appreciative;Pleasant;Sad;Tearful Patient Rastafari at Registration Taoist Patient Rastafari Upon Assessment Taoist Spiritual Strengths and Coping Resources Meaning, ez, [...] of care and support;Listened empathetically;Provided family support Taoist Interventions Prayer with patient or family Exploration Interventions Discussed illness/injury and its impact;Explored image of God in relationship to situation;Explored sources of strength and hope;Provided caring and supportive presence;Provided safe space to process emotions or concerns Empowerment Interventions Encouraged assertiveness;Encouraged patient autonomy;Encouraged self-care Interventions with Family Relationship Building Interventions Cultivated a relationship of care and support;Listened empathetically;Provided family support Taoist Interventions Prayer with family Exploration Interventions Provided caring and supportive presence;Provided safe space to process emotions or concerns Empowerment Interventions Affirmed individual's own spiritual journey;Affirmed family's experience Outcomes Expressed Outcomes Expressed feeling supported;Expressed comfort/peace;Appreciative of prayer/ritual;Appreciative of visit;Able to discuss emotions Care Plan Plan for Follow-Up Physical Education Specialist(s) remains available as needed Add to Follow Up List Yes Rev. Dr. Delia Park M.Div, D.Min Physical Education Specialist, Pastoral and Spiritual Care For non-urgent requests, please place a Pastoral Care consult in [facility]. For all urgent matters, please send an urgent [facility] Secure Chat to the Pastoral Care group at your location. Between 11pm and 7am, please use On-Call Finder to send an [facility] Secure Chat to the on-call casing cooker. Pastoral Care office phone numbers: EDG/COV/GRT [phone], FLORINA [phone], FTT [phone], DBN [phone] * Kaz Robertson MD - 05/11/2025 11:59 [...] arterial studies 05/02 with significant PAD - SECURITY MANAGEMENT SPECIALIST stenosis Patent popliteal and TPT with severe stenosis Patent proximal INTERPRETER AND TRANSLATOR but occluded distally without reconstitution Patent DAREN with multifocal severe stenosis, occlusion at the level of the ankle and no distal reconstitution Significant small vessel disease in L foot * Kaz Robertson MD - 05/11/2025 11:59 AM EDTAssociated Problem(s): Paroxysmal atrial fibrillation (HCC) Heart rate controlled. 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 - INTERPRETER AND TRANSLATOR coreg - cardiac monitoring -Heart rate 98 * Miryam Guzman APRN - 05/11/2025 10:04 AM EDT Images from [...] Paroxysmal atrial fibrillation (HCC) Coronary 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 artery // Hx of CABG Type 2 [...] insulin (HCC) Last A1c 4.8 in 03/2024. INTERPRETER AND TRANSLATOR meds include none. - hold off on FSBS, correctional algorithm - rpt A1c 5.3 * Kaz Robertson MD - 05/11/2025 7:12 AM EDTAssociated Problem(s): Hypertension associated with diabetes (HCC) Well controlled. - INTERPRETER AND TRANSLATOR coreg - monitor and adjust as needed -Blood pressure 116/76 * Kaz Robertson MD - 05/11/2025 7:12 AM EDTAssociated Problem(s): Acute on chronic heart failure with preserved ejection fraction (HCC) Echo 2023 normal EF. Euvolemic on exam - monitor I/O, daily weights - diuresis: INTERPRETER AND TRANSLATOR lasix on hold - INTERPRETER AND TRANSLATOR coreg * Kaz Robertson MD - 05/11/2025 7:12 AM EDTAssociated Problem(s): Stage 3a chronic kidney disease (HCC) Cre 1.05 at admit. Baseline approx 0.9-1.2. 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 artery // Hx of CABG History of CABG - continue lipitor, coreg, ranexa - cardiac monitoring * Kaz Robertson MD - 05/11/2025 7:12 AM EDTAssociated Problem(s): Wound dehiscence Continue to monitor * Kaz Robertson MD - 05/11/2025 7:12 AM EDTAssociated Problem(s): Anemia in other chronic diseases classified elsewhere Continue to monitor hemoglobin appears stable at the moment * Kaz Robertson MD - 05/11/2025 7:12 AM EDT Images [...] arterial studies 05/02 with significant PAD - SECURITY MANAGEMENT SPECIALIST stenosis Patent popliteal and TPT with severe stenosis Patent proximal INTERPRETER AND TRANSLATOR but occluded distally without reconstitution Patent DAREN with multifocal severe stenosis, occlusion at the level of the ankle and no distal reconstitution Significant small vessel disease in L foot Paroxysmal atrial fibrillation ([facility]) Heart rate controlled. 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 - INTERPRETER AND TRANSLATOR coreg - cardiac monitoring -Heart rate 98 Type 2 diabetes mellitus, without long-term current use of insulin ([facility]) Last A1c 4.8 in 03/2024. INTERPRETER AND TRANSLATOR meds include none. - hold off on FSBS, correctional algorithm - rpt A1c 5.3 Hypertension associated with diabetes ([facility]) Well controlled. - INTERPRETER AND TRANSLATOR coreg - monitor and adjust as needed -Blood pressure 116/76 Chronic heart failure with preserved ejection fraction ([facility]) Echo 2023 normal EF. Euvolemic on exam - monitor I/O, daily weights - diuresis: INTERPRETER AND TRANSLATOR lasix on hold - INTERPRETER AND TRANSLATOR coreg Stage 3a chronic kidney disease ([facility]) Cre 1.05 at admit. Baseline approx 0.9-1.2. 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 artery // Hx of CABG History of [...] BAUTISTA Department: DEPID Room: 3326 Gender: Female Rampman: CHANTEL : 1940 Requested By: DONNIE PLUMMER Order Number: [id number] Reading MD: Isidro Kennedy Measurements Intervals [place] Rate: 134 P: 203 CT: 145 QRS: -6 QRSD: 93 T: -78 [...] angiogram under anesthesia this week, April 10, now - continue lipitor * Kaz Robertson MD - 05/10/2025 1:54 PM EDTAssociated Problem(s): Paroxysmal atrial fibrillation (HCC) Heart rate controlled. 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 - INTERPRETER AND TRANSLATOR coreg - cardiac monitoring -Heart rate 83 * Kaz Robertson MD - 05/10/2025 1:54 PM EDTAssociated Problem(s): Type 2 diabetes mellitus, without long-term current use of insulin (HCC) Last A1c 4.8 in 03/2024. INTERPRETER AND TRANSLATOR meds include none. - hold off on FSBS, correctional algorithm - rpt A1c 5.3 * Kaz Robertson MD - 05/10/2025 1:54 PM EDTAssociated Problem(s): Hypertension associated with diabetes (HCC) Well controlled. - INTERPRETER AND TRANSLATOR coreg - monitor and adjust as needed -Blood pressure 116/76 * Kaz Robertson MD - 05/10/2025 1:54 PM EDTAssociated Problem(s): Acute on chronic heart failure with preserved ejection fraction (HCC) Echo 2023 normal EF. Euvolemic on exam - monitor I/O, daily weights - diuresis: INTERPRETER AND TRANSLATOR lasix on hold - INTERPRETER AND TRANSLATOR coreg * Kaz Robertson MD - 05/10/2025 1:54 PM EDTAssociated Problem(s): Stage 3a chronic kidney disease (HCC) Cre 1.05 at admit. Baseline approx 0.9-1.2. - caution with contrast - note plans for angiogram - monitor renal function closely - avoid hypotension, nephrotoxins as able * Kaz Robertson MD - 05/10/2025 1:54 PM EDTAssociated Problem(s): Coronary 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 artery // Hx of CABG History of [...] on AC d/t hx of SAH - INTERPRETER AND TRANSLATOR coreg - cardiac monitoring -Heart rate 83 Type 2 diabetes mellitus, without long-term current use of insulin (HCC) Last A1c 4.8 in 03/2024. INTERPRETER AND TRANSLATOR meds include none. - hold off on FSBS, correctional algorithm - rpt A1c 5.3 Hypertension associated with diabetes (HCC) Well controlled. - INTERPRETER AND TRANSLATOR coreg - monitor and adjust as needed -Blood pressure 116/76 Chronic heart failure with preserved ejection fraction (HCC) Echo 2023 normal EF. Euvolemic on exam - monitor I/O, daily weights - diuresis: INTERPRETER AND TRANSLATOR lasix on hold - INTERPRETER AND TRANSLATOR coreg Stage 3a chronic kidney disease (HCC) Cre 1.05 at admit. Baseline approx 0.9-1.2. 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 artery // Hx of CABG History of [...] interpreted daily labs NA Labs: Recent Labs 05/08/2552305/09/25 0748 WBC 3.9 3.9 HGB 7.4* 7.6* HCT 22.6* 22.9* PLT 60* 62* Recent Labs 05/08/25 05 NA 137 K 4.2 CL 107 CO2 [...] Pat Name: SKYLER BAUTISTA Department: DEPID Room: [facility] Gender: Female Rampman: CHANTEL : 1940 Requested By: DONNIE PLUMMER Order Number: [id number] Reading MD: Isidro Kennedy Measurements Intervals [place] Rate: 134 P: 203 CT: 145 QRS: -6 QRSD: 93 T: -78 QT: 333 QTc: 499 Interpretive Statements SINUS TACHYCARDIA NONSPECIFIC ST & T-WAVE ABNORMALITY Electronically Signed On 04-30-2025 22:14:02 EDT by Isidro Robertson MD * Izaguirre [place] SOLUTION MAKE UP OPERATOR - 05/10/2025 11:33 AM EDT 05/10/25 1031 Ongoing Discharge Planning Evaluation Completed by CC/NORA Yes Repisodic List provided Yes, Provided information, demonstrated how to access quality and resource utilization data for post acute provider and offered assistance and [facility] Financial Disclosure completed Actual Discharge Plan 05/10/2025 [...] at time of d/c. Pharmacy updated in [facility]. NORA following Final Note Post Acute Form Completed Yes * Cely Gottlieb RD,LD - 05/10/2025 10:49 AM EDT [facility] Nutrition Malnutrition Reassessment Evidence Supported Diagnosis: No malnutrition identified Nutrition Prescription: Kcals: 4214-0715 kcal (25-30 kcal/kg) Protein (g): 65-82 gm [...] BID with Meals 1 'box' at 05/09/25 183 CRISTINE powder oral supplement 1 Packet Oral [...] Stool Occurrence: 1 Stool Appearance: Type 4 [place] Stool Chart Stool Color: Michael Stool Amount: [...] therapy recommended. Time In / Time Out [id number] IP PT Treatment Minutes 24 The total [...] on AC d/t hx of SAH - INTERPRETER AND TRANSLATOR coreg - cardiac monitoring -Heart rate 75 * Kaz Robertson MD - 05/09/2025 10:25 AM EDTAssociated Problem(s): Hypertension associated with diabetes (HCC) Well controlled. - INTERPRETER AND TRANSLATOR coreg - monitor and adjust as needed -Blood pressure 128/66 * Jaqueline Ly PT - 05/09/2025 9:14 AM EDT 05/09/25 [...] plans for angiogram under anesthesia this week, Tuesday, April 10 - continue lipitor * Kaz Robertson MD - 05/09/2025 7:00 AM EDTAssociated Problem(s): Type 2 diabetes mellitus, without long-term current use of insulin (HCC) Last A1c 4.8 in 03/2024. INTERPRETER AND TRANSLATOR meds include none. - hold off on FSBS, correctional algorithm - rpt A1c 5.3 * Kaz Robertson MD - 05/09/2025 7:00 AM EDTAssociated Problem(s): Acute on chronic heart failure with preserved ejection fraction (HCC) Echo 2023 normal EF. Euvolemic on exam - monitor I/O, daily weights - diuresis: INTERPRETER AND TRANSLATOR lasix on hold - INTERPRETER AND TRANSLATOR coreg * Kaz Robertson MD - 05/09/2025 7:00 AM EDTAssociated Problem(s): Stage 3a chronic kidney disease (HCC) Cre 1.05 at admit. Baseline approx 0.9-1.2. - caution with contrast - note plans for angiogram - monitor renal function closely - avoid hypotension, nephrotoxins as able * Kaz Robertson MD - 05/09/2025 7:00 AM EDTAssociated Problem(s): Coronary 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 artery // Hx of CABG History of [...] on AC d/t hx of SAH - INTERPRETER AND TRANSLATOR coreg - cardiac monitoring -Heart rate 75 Type 2 diabetes mellitus, without long-term current use of insulin ([facility]) Last A1c 4.8 in 03/2024. INTERPRETER AND TRANSLATOR meds include none. - hold off on FSBS, correctional algorithm - rpt A1c 5.3 Hypertension associated with diabetes ([facility]) Well controlled. - INTERPRETER AND TRANSLATOR coreg - monitor and adjust as needed -Blood pressure 128/66 Chronic heart failure with preserved ejection fraction ([facility]) Echo 2023 normal EF. Euvolemic on exam - monitor I/O, daily weights - diuresis: INTERPRETER AND TRANSLATOR lasix on hold - INTERPRETER AND TRANSLATOR coreg Stage 3a chronic kidney disease (HCC) Cre 1.05 at admit. Baseline approx 0.9-1.2. 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 artery // Hx of CABG History of [...] Pat Name: SKYLER BAUTISTA Department: DEPID Room: [facility] Gender: Female Rampman: CHANTEL : 1940 Requested By: DONNIE PLUMMER Order Number: [id number] Reading MD: Isidro Kennedy Measurements Intervals [place] Rate: 134 P: 203 CT: 145 QRS: -6 QRSD: 93 T: -78 [...] Additional Comments Pt has been in/out of [facility] for rehab. Son assists with IADLs as [...] therapy recommended. Time In / Time Out [id number] (31 minutes) IP OT Evaluation Minutes 8 [...] on AC d/t hx of SAH - INTERPRETER AND TRANSLATOR coreg - cardiac monitoring -Heart rate 80 * Kaz Robertson MD - 05/08/2025 1:05 PM EDTAssociated Problem(s): Hypertension associated with diabetes (HCC) Well controlled. - INTERPRETER AND TRANSLATOR coreg - monitor and adjust as needed [...] therapy recommended. Time In / Time Out [id number] IP PT Treatment Minutes 25 The total time [...] insulin (HCC) Last A1c 4.8 in 03/2024. INTERPRETER AND TRANSLATOR meds include none. - hold off on FSBS, correctional algorithm - rpt A1c 5.3 * Kaz Robertson MD - 05/08/2025 6:56 AM EDTAssociated Problem(s): Acute on chronic heart failure with preserved ejection fraction (HCC) Echo 2023 normal EF. Euvolemic on exam - monitor I/O, daily weights - diuresis: INTERPRETER AND TRANSLATOR lasix on hold - INTERPRETER AND TRANSLATOR coreg * Kaz Robertson MD - 05/08/2025 6:56 AM EDTAssociated Problem(s): Stage 3a chronic kidney disease (HCC) Cre 1.05 at admit. Baseline approx 0.9-1.2. 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 - INTERPRETER AND TRANSLATOR coreg - cardiac monitoring -Heart rate 80 Type 2 diabetes mellitus, without long-term current use of insulin ([facility]) Last A1c 4.8 in 03/2024. INTERPRETER AND TRANSLATOR meds include none. - hold off on FSBS, correctional algorithm - rpt A1c 5.3 Hypertension associated with diabetes ([facility]) Well controlled. - INTERPRETER AND TRANSLATOR coreg - monitor and adjust as needed -Blood pressure 124/66 Chronic heart failure with preserved ejection fraction ([facility]) Echo 2023 normal EF. Euvolemic on exam - monitor I/O, daily weights - diuresis: INTERPRETER AND TRANSLATOR lasix on hold - INTERPRETER AND TRANSLATOR coreg Stage 3a chronic kidney disease ([facility]) Cre 1.05 at admit. Baseline approx 0.9-1.2. 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 artery // Hx of CABG History of [...] Pat Name: SKYLER BAUTISTA Department: DEPID Room: [facility] Gender: Female Rampman: CHANTEL : 1940 Requested By: DONNIE PLUMMER Order Number: [id number] Reading MD: Isidro Kennedy Measurements Intervals [place] Rate: 134 P: 203 CT: 145 QRS: -6 QRSD: 93 T: -78 QT: 333 QTc: 499 Interpretive Statements SINUS TACHYCARDIA NONSPECIFIC ST & T-WAVE ABNORMALITY Electronically Signed On 04-30-2025 22:14:02 EDT by Isidro Robertson MD * Spencer Dye - 05/07/2025 4:06 PM EDT 05/07/25 1500 Reason for Visit Date of visit 05/07/25 Visited With Patient and family/visitors Visited By Physical Education Specialist Reason for Visit Follow-up Patient Assessment Patient Appears Fearful;Anxious Patient Rastafari at Registration Taoist Spiritual and Emotional Concerns Fear Patient Spiritual Wellbeing Moderate Acuity - Spiritual Distress Interventions with Patient Taoist Interventions Prayer with patient or family Exploration Interventions Discussed illness/injury and its impact;Identified and reinforced appropriate coping strategies and strengths;Explored image of God in relationship to situation Outcomes Expressed Outcomes Expressed feeling supported Care Plan Plan for Follow-Up Physical Education Specialist(s) will continue to follow throughout admission * [...] on AC d/t hx of SAH - INTERPRETER AND TRANSLATOR coreg - cardiac monitoring -Heart rate 81 * Cely Gottlieb RD,LD - 05/07/2025 10:39 AM EDT [facility] Nutrition Malnutrition Reassessment Evidence Supported Diagnosis: No malnutrition identified Nutrition Prescription: Kcals: 3872-4841 kcal (25-30 kcal/kg) Protein (g): 65-82 gm [...] insulin (HCC) Last A1c 4.8 in 03/2024. INTERPRETER AND TRANSLATOR meds include none. - hold off on FSBS, correctional algorithm - rpt A1c 5.3 * Kaz Robertson MD - 05/07/2025 7:10 AM EDTAssociated Problem(s): Hypertension associated with diabetes (HCC) Well controlled. - INTERPRETER AND TRANSLATOR coreg - monitor and adjust as needed * Kaz Robertson MD - 05/07/2025 7:10 AM EDTAssociated Problem(s): Acute on chronic heart failure with preserved ejection fraction (HCC) Echo 2023 normal EF. Euvolemic on exam - monitor I/O, daily weights - diuresis: INTERPRETER AND TRANSLATOR lasix on hold - INTERPRETER AND TRANSLATOR coreg * Kaz Robertson MD - 05/07/2025 7:10 AM EDTAssociated Problem(s): Stage 3a chronic kidney disease (HCC) Cre 1.05 at admit. Baseline approx 0.9-1.2. - caution with contrast - note plans for angiogram - monitor renal function closely - avoid hypotension, nephrotoxins as able * Kaz Robertson MD - 05/07/2025 7:10 AM EDTAssociated Problem(s): Coronary 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 artery // Hx of CABG History of [...] on AC d/t hx of SAH - INTERPRETER AND TRANSLATOR coreg - cardiac monitoring -Heart rate 81 Type 2 diabetes mellitus, without long-term current use of insulin ([facility]) Last A1c 4.8 in 03/2024. INTERPRETER AND TRANSLATOR meds include none. - hold off on FSBS, correctional algorithm - rpt A1c 5.3 Hypertension associated with diabetes ([facility]) Well controlled. - INTERPRETER AND TRANSLATOR coreg - monitor and adjust as needed Chronic heart failure with preserved ejection fraction (HCC) Echo 2023 normal EF. Euvolemic on exam - monitor I/O, daily weights - diuresis: INTERPRETER AND TRANSLATOR lasix on hold - INTERPRETER AND TRANSLATOR coreg Stage 3a chronic kidney disease (HCC) Cre 1.05 at admit. Baseline approx 0.9-1.2. 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 artery // Hx of CABG History of [...] Pat Name: SKYLER BAUTISTA Department: DEPID Room: [facility] Gender: Female Rampman: CHANTEL : 1940 Requested By: DONNIE PLUMMER Order Number: [id number] Reading MD: Isidro Kennedy Measurements Intervals [place] Rate: 134 P: 203 CT: 145 QRS: -6 QRSD: 93 T: -78 QT: 333 QTc: 499 Interpretive Statements SINUS TACHYCARDIA NONSPECIFIC ST & T-WAVE ABNORMALITY Electronically Signed On 04-30-2025 22:14:02 EDT by Isidro Robertson MD * Radha Looney, PT - 05/06/2025 11:47 AM EDT 05/06/25 1054 PT Subjective Note Type Evaluation;Chart Review Patient Room/Unit 3326 PT Subjective Comments #1 pt agreeable, has to use the [facility] Discharge Information Evaluation to serve as discharge [...] abscess. Clinical Course 04/30: To ED from [facility] with L TMA dehiscence, L Foot [...] Additional Comments per chart, pt was at [facility] prior to admit, plan to stay with [...] therapy recommended. Time In / Time Out [id number] IP PT Evaluation Minutes 10 IP PT Treatment Minutes 43 The total time spent caring for this patient included but was not limited to medical record review;hands-on treatment;communication and education with patient and/or family/caregiver;clinical judgement necessary for treatment planning for next session;communication with nursing and/or care coordinat ion/social work regarding patient status and discharge planning * Rosario Izaguirre MSW - 05/06/2025 10:01 AM EDT 05/06/25 1000 Ongoing Discharge Planning Evaluation Completed by CC/NORA Yes Repisodic List provided Yes, Provided information, demonstrated how to access quality and resource utilization data for post acute provider and offered assistance and [facility] Financial Disclosure completed Actual Discharge Plan 05/06/2025 [...] but was not able to reach him, SW left VM. NORA left VM for pts sister Adriana as well. Dispo pending angio and pt working with therapy. NORA following Addendum: NORA received call back from pts sister. Confirmed pt wa at [facility] and should go back there. Plans to [...] on AC d/t hx of SAH - INTERPRETER AND TRANSLATOR coreg - cardiac monitoring * Geo Guallpa MD - 05/06/2025 9:31 AM EDTAssociated Problem(s): Type 2 diabetes mellitus, without long-term current use of insulin (HCC) Last A1c 4.8 in 03/2024. INTERPRETER AND TRANSLATOR meds include none. - hold off on FSBS, correctional algorithm - rpt A1c 5.3 * Geo Guallpa MD - 05/06/2025 9:31 AM EDTAssociated Problem(s): Hypertension associated with diabetes (HCC) Well controlled. - INTERPRETER AND TRANSLATOR coreg - monitor and adjust as needed * Geo Guallpa MD - 05/06/2025 9:31 AM EDTAssociated Problem(s): Acute on chronic heart failure with preserved ejection fraction (HCC) Echo 2023 normal EF. Euvolemic on exam - monitor I/O, daily weights - diuresis: INTERPRETER AND TRANSLATOR lasix on hold - INTERPRETER AND TRANSLATOR coreg * Geo Guallpa MD - 05/06/2025 9:31 AM EDTAssociated Problem(s): Stage 3a chronic kidney disease (HCC) Cre 1.05 at admit. Baseline approx 0.9-1.2. - caution with contrast - note plans for angiogram - monitor renal function closely - avoid hypotension, nephrotoxins as able * Geo Guallpa MD - 05/06/2025 9:31 AM EDTAssociated Problem(s): Coronary 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 artery // Hx of CABG History of [...] on AC d/t hx of SAH - INTERPRETER AND TRANSLATOR coreg - cardiac monitoring Type 2 diabetes mellitus, without long-term current use of insulin (HCC) Last A1c 4.8 in 03/2024. INTERPRETER AND TRANSLATOR meds include none. - hold off on FSBS, correctional algorithm - rpt A1c 5.3 Hypertension associated with diabetes (HCC) Well controlled. - INTERPRETER AND TRANSLATOR coreg - monitor and adjust as needed Chronic heart failure with preserved ejection fraction (HCC) Echo 2023 normal EF. Euvolemic on exam - monitor I/O, daily weights - diuresis: INTERPRETER AND TRANSLATOR lasix on hold - INTERPRETER AND TRANSLATOR coreg Stage 3a chronic kidney disease (HCC) Cre 1.05 at admit. Baseline approx 0.9-1.2. 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 artery // Hx of CABG History of [...] Paroxysmal atrial fibrillation (HCC) Coronary 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 artery // Hx of CABG Type 2 [...] on AC d/t hx of SAH - INTERPRETER AND TRANSLATOR coreg - cardiac monitoring * Geo Guallpa MD - 05/05/2025 1:00 PM EDTAssociated Problem(s): Type 2 diabetes mellitus, without long-term current use of insulin (HCC) Last A1c 4.8 in 03/2024. INTERPRETER AND TRANSLATOR meds include none. - hold off on FSBS, correctional algorithm - note metformin started - will stop given plans for angiogram this week - rpt A1c ordered * Geo Guallpa MD - 05/05/2025 1:00 PM EDTAssociated Problem(s): Hypertension associated with diabetes (HCC) Well controlled. - INTERPRETER AND TRANSLATOR coreg - monitor and adjust as needed * Geo Guallpa MD - 05/05/2025 1:00 PM EDTAssociated Problem(s): Acute on chronic heart failure with preserved ejection fraction (HCC) Echo 2023 normal EF. Euvolemic on exam - monitor I/O, daily weights - diuresis: INTERPRETER AND TRANSLATOR lasix on hold - INTERPRETER AND TRANSLATOR coreg * Geo Guallpa MD - 05/05/2025 1:00 PM EDTAssociated Problem(s): Stage 3a chronic kidney disease (HCC) Cre 1.05 at admit. Baseline approx 0.9-1.2. - caution with contrast - note plans for angiogram - monitor renal function closely - avoid hypotension, nephrotoxins as able * Geo Guallpa MD - 05/05/2025 1:00 PM EDTAssociated Problem(s): Coronary 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 artery // Hx of CABG History of [...] on AC d/t hx of SAH - INTERPRETER AND TRANSLATOR coreg - cardiac monitoring Type 2 diabetes mellitus, without long-term current use of insulin ([facility]) Last A1c 4.8 in 03/2024. INTERPRETER AND TRANSLATOR meds include none. - hold off on FSBS, correctional algorithm - note metformin started - will stop given plans for angiogram this week - rpt A1c ordered Hypertension associated with diabetes ([facility]) Well controlled. - INTERPRETER AND TRANSLATOR coreg - monitor and adjust as needed Chronic heart failure with preserved ejection fraction ([facility]) Echo 2023 normal EF. Euvolemic on exam - monitor I/O, daily weights - diuresis: INTERPRETER AND TRANSLATOR lasix on hold - INTERPRETER AND TRANSLATOR coreg Stage 3a chronic kidney disease (HCC) Cre 1.05 at admit. Baseline approx 0.9-1.2. 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 Bautista is up in the chair. Reports she's getting some tingling in her foot, which she's hopeful means she'll have a good outcome. She states she can't see herself getting an amputation. Discussed with her and her son, [id number], at bedside. When asked what might happen [...] on AC d/t hx of SAH - INTERPRETER AND TRANSLATOR coreg - cardiac monitoring * Geo Guallpa MD - 05/05/2025 12:57 PM EDTAssociated Problem(s): Type 2 diabetes mellitus, without long-term current use of insulin (HCC) Last A1c 4.8 in 03/2024. INTERPRETER AND TRANSLATOR meds include none. - hold off on FSBS, correctional algorithm - note metformin started - will stop given plans for angiogram this week - rpt A1c * Geo Guallpa MD - 05/05/2025 12:57 PM EDTAssociated Problem(s): Acute on chronic heart failure with preserved ejection fraction (HCC) Echo 2023 normal EF. Euvolemic on exam - monitor I/O, daily weights - diuresis: INTERPRETER AND TRANSLATOR lasix on hold - INTERPRETER AND TRANSLATOR coreg * Geo Guallpa MD - 05/05/2025 12:57 PM EDTAssociated Problem(s): Hypertension associated with diabetes (HCC) Well controlled. - INTERPRETER AND TRANSLATOR coreg - monitor and adjust as needed * Geo Guallpa MD - 05/05/2025 12:57 PM EDTAssociated Problem(s): Stage 3a chronic kidney disease (HCC) Cre 1.05 at admit. Baseline approx 0.9-1.2. - caution with contrast - note plans for angiogram - monitor renal function closely - avoid hypotension, nephrotoxins as able * Geo Guallpa MD - 05/05/2025 12:57 PM EDTAssociated Problem(s): Coronary 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 artery // Hx of CABG History of [...] week - continue lipitor Paroxysmal atrial fibrillation ([facility]) Heart rate controlled. 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 - INTERPRETER AND TRANSLATOR coreg - cardiac monitoring Type 2 diabetes mellitus, without long-term current use of insulin ([facility]) Last A1c 4.8 in 03/2024. INTERPRETER AND TRANSLATOR meds include none. - hold off on FSBS, correctional algorithm - note metformin started - will stop given plans for angiogram this week - rpt A1c Hypertension associated with diabetes ([facility]) Well controlled. - INTERPRETER AND TRANSLATOR coreg - monitor and adjust as needed Chronic heart failure with preserved ejection fraction (HCC) Echo 2023 normal EF. Euvolemic on exam - monitor I/O, daily weights - diuresis: INTERPRETER AND TRANSLATOR lasix on hold - INTERPRETER AND TRANSLATOR coreg Stage 3a chronic kidney disease (HCC) Cre 1.05 at admit. Baseline approx 0.9-1.2. 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 artery // Hx of CABG History of CABG - continue lipitor, coreg, ranexa - cardiac monitoring Dispo: Continue current level of care Pt declining PT d/t pain VTE Prophylaxis: Active Hospital Problems Diagnosis *Diabetic foot infection ([facility]) S/P transmetatarsal amputation of foot, left ([facility]) Stage 3a chronic kidney disease ([facility]) PAD (peripheral artery disease) Chronic heart failure with preserved ejection fraction ([facility]) Paroxysmal atrial fibrillation ([facility]) 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 Bautista reports not [...] Paroxysmal atrial fibrillation (HCC) Coronary 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 artery // Hx of CABG Type 2 [...] MD, plan for MRI Hold abx * Mracell Aguirre MD - 05/03/2025 6:33 PM EDTAssociated [...] long-term current use of insulin (HCC) Cont bell captain metformin Refusing SSI * Marcell Aguirre [...] 6:33 PM EDTAssociated Problem(s): Coronary 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 artery // Hx of CABG History of [...] long-term current use of insulin (HCC) Cont bell captain metformin Refusing SSI Chronic heart failure with preserved ejection fraction (HCC) Echo 2023 normal EF Compensated 05/03/2025 Primary hypertension Controlled Stage 3a chronic kidney disease (HCC) Baseline CR 0.9-1.2, stable Coronary 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 artery // Hx of CABG History of [...] Marcell Aguirre MD 05/03/2025 6:28 PM * Tensiha Wong, PT - 05/03/2025 8:51 AM EDT [...] long-term current use of insulin (HCC) Cont bell captain metformin Refusing SSI * Marcell Aguirre [...] 5:52 PM EDTAssociated Problem(s): Coronary 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 artery // Hx of CABG History of [...] long-term current use of insulin (HCC) Cont bell captain metformin Refusing SSI Chronic heart failure with preserved ejection fraction (HCC) Echo 2023 normal EF Compensated 05/02/2025 Primary hypertension Controlled Stage 3a chronic kidney disease (HCC) Baseline CR 0.9-1.2, stable Coronary 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 I can feel his presence . Pt less anxious after prayer support.) Empowerment Interventions Encouraged focus on present Outcomes Expressed Outcomes Met spiritual needs;Appreciative of prayer/ritual;Able to discuss emotions;Able to explore grief;Distress reduced;Decreased anxiety Care Plan Plan for Follow-Up Physical Education Specialist(s) will continue to follow throughout admission * Mel Hurd MSW - 05/02/2025 9:59 AM EDT 05/02/25 0900 Assessment Complete Actual Discharge Plan 05/02/25 SW update: Pt was admitted from [facility]. Referral was sent to [facility] in [facility] per pt's request; SW spoke with Grisel at [facility] regarding referral. Grisel informed SW pt was at [facility] last month and they sent pt to [facility] b/c pt needed a lower level of therapy. Pt will need PT consult for recommendations and to see if pt needs acute rehab. MD notified and PT eval pending. 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 // Hx of CABG History of CABG no chest pain * Marcell Aguirre MD - 05/01/2025 5:56 PM EDTAssociated Problem(s): Type 2 diabetes mellitus, without long-term current use of insulin (HCC) Cont bell captain metformin Refusing SSI * Marcell Aguirre [...] long-term current use of insulin (HCC) Cont bell captain metformin Refusing SSI Chronic heart failure with preserved ejection fraction (HCC) Echo 2023 normal EF Compensated Primary hypertension Controlled PAD (peripheral artery disease) History of angiogram 01/2025 Stage 3a chronic kidney disease (HCC) Baseline CR 0.9-1.2, stable Coronary 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 artery // Hx of CABG History of [...] time. Blood glucose reads 188 and per MAR the patient should receive 2 units of insulin but the patient states that any time she takes sub Q insulin her blood glucose drops to dangerous levels and she begins to feel bad. Pt states that her blood glucose is normally controlled with oral medication at home. MD notified of refusal. * Cely Gottlieb RD,LD - 05/01/2025 3:46 PM EDT [facility] Nutrition Malnutrition Assessment Evidence Supported Diagnosis: No malnutrition identified Nutrition Prescription: Kcals: [id number] kcal (25-30 kcal/kg) Protein (g): 65-82 gm [...] Stool Occurrence: 1 Stool Appearance: Type 5 [place] Stool Chart Stool Color: Michael Stool Amount: [...] 05/01/25 1500 Discharge Planning Evaluation Completed by CC/SW Yes Referral Source Chart review Does patient [...] to Admission? Acute Rehabilitation Care Facility Name [facility] Support Systems Children;Family Members Is PCP listed on facesheet correct? No Who does patient report as PCP? Was seeing a Gloria Fitzgerald Quality of Support System Good Follow Up Assigned To: Referral not needed concern identified and addressed by Poultry [employer]or Anticipated post-acute care needs Acute Rehabilitation Facility Repisodic List provided N/A - Resumption care. Patient active with post acute partner prior to admission Actual Discharge Plan 05/01/2025 NORA Initial: NORA spoke with pt at bedside. Pt alert and oriented x 3 and reports needing some assistance currently ADLs due to her recent TMA. Pt reports she admitted from [facility] and would like to go back to finish rehab. Resumption of care referral sent. Pt stated that prior to rehab and being in the hospital, she had been staying with her sister. Pt reports [facility] was working with her using a 2WW and cane. Reports she also has a WC at her sisters. Pt reports sister will transport her. Pt repors she was seeing a PCP through [facility] Fitzgerald? and now using [facility] pharmacy on [address] Pt reports no [...] on SCr of 0.97 mg/dL). Recent Labs 04/30/251714 PROCLCTNIN <0.05 Recent Labs 04/30/25 17104/30/25 1930 LACTA 2.3* 1.3 Recent Labs 04/30/251714 CRP <3.00 I/O last 3 completed shifts: [...] signs of toxicity. 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 [place] the contents of one device (0.1mL) into one nostril upon signs of opioid overdose. Call 911. May repeat dose in other nostril if no response within 2-3 minutes. 02/04/25 Flaco Caban MD nalOXone (NARCAN) 4 mg/actuation Nasl [place], Non-Aerosol 0.1 mL by Nasal route as needed for OpioidReversal. [place] the contents of one device (0.1mL) into [...] IR REVAS FEM POP ART UNILAT W INTERPRETER AND TRANSLATOR 01/30/2025 IR REVAS FEM POP ART UNILAT W INTERPRETER AND TRANSLATOR 01/30/2025 Lawrence Wolf MD [facility] IR IR ULTRASOUND GUIDED VASCULAR ACCESS 01/17/2025 IR ULTRASOUND GUIDED VASCULAR ACCESS 01/17/2025 Lawrence Wolf MD [facility] IR ULTRASOUND GUIDED VASCULAR ACCESS 01/30/2025 IR ULTRASOUND GUIDED VASCULAR ACCESS 01/30/2025 Lawrence Wolf MD [facility] IR JOINT REPLACEMENT TOE SURGERY Left 01/31/2025 Left foot hallux amputation; Surgeon: Dacia Mills DPM; Location: [facility] MAIN OR; Service: Podiatry FHX: Family history [...] Paroxysmal atrial fibrillation (HCC) Coronary 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 The edges of the bone and rodwas smoothed out using a file and saw. The amputation site was irrigated with copious amount of antibiotic solution. Complete hemostasis obtained with 2-0 silk sutures and electrocautery. The tissue around the transected femur was closed with an 0 vicryl suture to obtain coverage. The muscles were loosely approximated around the bone with another 0 vicryl. The fascia was closed with interrupted 0vicryl suture in interrupted fashion. The dermis was approximated with 3-0 Vicryl sutures. The skinwas then closed with noelle. The amputation site [...] Wolf MD - 05/24/2025 11:52 AM EDT [facility] OPERATIVE/PROCEDURE NOTE Skyler Bautista May 24, 2025 Body mass index is 21.95 kg/m??. PRE-OP DIAGNOSIS: PAD (peripheral artery disease) [I73.9] Critical limb ischemia of left lower extremity (HCC) [I70.222] POST-OP DIAGNOSIS: PAD (peripheral artery disease) [I73.9]Critical limb ischemia of left lower extremity (HCC) [I70.222] PROCEDURE(S): Left Above Knee Amputation SURGEON(S): Surgeons and Role: * Lawrence Wolf MD - Primary PUFF IRON OPERATOR(S): see op log ANESTHESIA: General w/Block SPECIMENS: [...] REPORT PATIENT NAME: Skyler Bautista MR #: [id number] : 1940 DATE OF PROCEDURE: 05/10/2025 PREOPERATIVE DIAGNOSES: LLE critical limb ischemia, History of L TMA, PAD POSTOPERATIVE DIAGNOSES: Same PROCEDURE PERFORMED: 1. US guided access of the right common femoral artery 2. Abdominal aortogram. Selection of L SFA via R SECURITY MANAGEMENT SPECIALIST (3rd order) with left lower extremity angiogram. Selection of INTERPRETER AND TRANSLATOR with additional angiogram. Radiographic supervision and interpretation [...] TPT and peroneal artery, reconstitution of proximal INTERPRETER AND TRANSLATOR with mid and distal INTERPRETER AND TRANSLATOR with multifocal severe stenosis of proximal andmid INTERPRETER AND TRANSLATOR but occluded distally without reconstitution. Significant small [...] with severe stenosis, patent proximal and mid INTERPRETER AND TRANSLATOR with multifocal severe stenosis, patent peroneal artery Significant small vessel disease in L foot INDICATIONS: Skyler Bautista is a 84 y.o. female with PMHx significant for PAD s/p pelvic angiogram with bilateral NILAY stents s/p LLE angiogram with INTERPRETER AND TRANSLATOR of popliteal artery, TPT and peroneal artery [...] a hemostat. Under ultrasound guidance, the R SECURITY MANAGEMENT SPECIALIST was accessed using a micropuncture needle. X-ray [...] an 11 cm 5 Fr sheath. Next, Corous360son wire and Omniflush catheter were advanced to [...] and catheter were used to select the INTERPRETER AND TRANSLATOR to better evaluate if it reconstituted distally. After the INTERPRETER AND TRANSLATOR was selected, an angiogram was obtained, which [...] procedure. SUMMARY: Significant small vessel disease. Occluded INTERPRETER AND TRANSLATOR and DAREN distally without reconstitution. RECOMMENDATIONS: Bed rest for 3 hours. Recommend proximal LLE amputation Voice recognition technology was used to complete this note, and it may contain unintended errors despite the designer writer's best efforts to proofread it. Please contact me with questions. Signed: Lawrence Wolf MD * Lawrence Wolf MD - 05/10/2025 2:07 PM EDT [facility] ENDOVASCULAR PROCEDURE NOTE Skyler Bautista 05/10/25 PRE-OP DIAGNOSIS: L TMA dehiscence and necrosis, PAD POST-OP DIAGNOSIS: Same PROCEDURE(S): Ultrasound guided R SECURITY MANAGEMENT SPECIALIST access Abdominal aortogram. Selection of L SFA via R SECURITY MANAGEMENT SPECIALIST (3rd order) with LLE angiogram. Selection of INTERPRETER AND TRANSLATOR with additional angiogram RLE angiogram RADIATION: 309 mGy FLUORO: 27.6 min SEDATION: General anesthesia CONTRAST: 68 mL SURGEON: Lawrence Wolf MD ANESTHESIA: Local, conscious sedation ESTIMATED BLOOD LOSS (mls): 5 mL LLE FINDINGS: SECURITY MANAGEMENT SPECIALIST stenosis Patent popliteal and TPT with severe stenosis Patent proximal INTERPRETER AND TRANSLATOR but occluded distally without reconstitution Patent DAREN with multifocal severe stenosis, occlusion at the level of the ankle and no distal reconstitution Significant small vessel disease in L foot DISPOSITION/POST PROC COURSE: PACU and flat for 3 hours documented in this encounter Consult Notes * Luis Manuel Mays MD - 05/26/2025 3:51 PM EDT [facility] Critical Care Consult Note MDM Assessment: Skyler [...] pending. Bcx obtained and pending. Zosyn restarted INTERPRETER AND TRANSLATOR, will add Vanc for MRSA coverage. If [...] Luis Manuel Mays M.D. Critical Care Medicine [facility] Critical care time: 39 minutes This [...] IR REVAS FEM POP ART UNILAT W INTERPRETER AND TRANSLATOR 01/30/2025 IR REVAS FEM POP ART UNILAT W INTERPRETER AND TRANSLATOR 01/30/2025 Lawrence Wolf MD [facility] IR IR [...] true Transportation Needs: No Transportation Needs (05/01/2025) [facility] IP Transportation In the past 12 months, has lack of reliable transportation kept you from medical appointments, meetings, work or from getting things needed for daily living?: No Physical Activity: Inactive (05/01/2025) Exercise Vital Sign Days of Exercise per Week: 0 days Minutes of Exercise per Session: 0 min Stress: No Stress Concern Present (05/01/2025) [employer] - Occupational Stress Questionnaire Feeling of Stress : Not at all Received from [employer] ([place], [place], [place], [place]) Family and Community Support Intimate Partner Violence: Not At Risk (08/06/2024) Received from Healthcare Humiliation, Afraid, Rape, and Kick questionnaire Fear of Current or Ex-Partner: No Emotionally Abused: No Physically Abused: No Sexually Abused: No Housing Stability: Low Risk (08/06/2024) Received from [facility] Housing Stability Vital Sign Unable to [...] BAUTISTA Department: DEPID Room: 3318 Gender: Female Rampman: Sekou : 1940 Requested By: STEPHEN Earl Order Number: [id number] Reading MD: Measurements Intervals [place] Rate: 78 P: 0 CT: 0 QRS: 16 QRSD: 88T: 27 QT: [...] (past 24h, last filed) * Leti Jefferson LIGHTING EQUIPMENT OPERATOR - 05/13/2025 3:48 PM EDTAssociated Order(s): IP CONSULT TO PALLIATIVE CARE Palliative Care Consult Note Consult Location: [facility] Length of Stay: 12 - [...] helpful to explore this further with floor Physical Education Specialist. Support provided along with [facility] role. Patient [...] majority rules, 11/18. Surrogate by: DAVIDK per KRS Disposition: TBD, depending treatment preference. [...] Wound Dehiscence Pt presents per ems from [facility], toes amputated on left foot, here for [...] Paroxysmal atrial fibrillation (HCC) Coronary 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 artery // Hx of CABG Type 2 [...] true Transportation Needs: No Transportation Needs (05/01/2025) [facility] Transportation In the past 12 months, has lack of reliable transportation kept you from medical appointments, meetings, work or from getting things needed for daily living?: No Physical Activity: Inactive (05/01/2025) Exercise Vital Sign Days of Exercise per Week: 0 days Minutes of Exercise per Session: 0 min Stress: No Stress Concern Present (05/01/2025) [employer] - Occupational Stress Questionnaire Feeling of Stress : Not at all Social Connections: Low Risk (10/30/2023) Received from [employer] ([place], [place], [place], [place]) Family and Community Support Help with Day to Day Activities: Not on file Feeling Lonely or Isolated: Not on file Intimate Partner Violence: Not At Risk (08/06/2024) Received from [facility] Humiliation, Afraid, Rape, and Kick questionnaire Fear of Current or Ex-Partner: No Emotionally Abused: No Physically Abused: No Sexually Abused: No Housing Stability: Low Risk (08/06/2024) Received from [facility] Housing Stability Vital Sign Unable to [...] mg Oral Q4H PRN 650 mg at 05/06/252134 ALPRAZolam (XanAX) tablet 0.5 mg 0.5 mg Oral Nightly 0.5 mg at 05/12/252254 atorvastatin (LIPITOR) tablet 40 mg 40 mg Oral Nightly 40 mg at 05/12/252254 carvediloL (COREG) tablet 12.5 mg 12.5 mg Oral BID 12.5 mg at 05/13/25 0904 dextrose 50 % solution 25 mL 25 mL Intravenous PRN dorzolamide-timoloL (COSOPT) 22.3-6.8 mg/mL ophthalmic solution 1 Drop 1 Drop Ophthalmic BID 1 Dropat 05/11/252010 gabapentin (NEURONTIN) capsule 300 mg 300 mg Oral Nightly 300 mg at 05/12/25 225 glucagon (GLUCAGEN) injection 1 mg 1 mg Intramuscular PRN And sterile water injection 1 mL 1 mL Injection PRN GLUCERNA Therapeutic oral supplement 1 'box' 1 'box' Oral BID with Meals 1 'box' at 05/13/25 0904 CRISTINE powder oral supplement 1 Packet 1 Packet Oral BID 1 Packet at 05/13/25 0905 latanoprost (XALATAN) 0.005 % ophthalmic solution [...] were not included. Name: Skyler Bautista ADDRESS: [address] [place], [place] [id number] : 1940 AGE: 84 y.o. Hospital: [facility] Requesting Attending: Dr. Aguirre Primary [...] with ulcer status post LLE angiogram with INTERPRETER AND TRANSLATOR of peroneal, tibioperoneal trunk and popliteal arteries [...] History: 01/30/2025 - Left LE angiogram with INTERPRETER AND TRANSLATOR of peroneal and tibioperoneal trunk with 1.5 x 80 mm and 2 x200 balloons. INTERPRETER AND TRANSLATOR of the popliteal artery with 3.5 x [...] Not Taking nalOXone (NARCAN) 4 mg/actuation Nasl [place], Non-Aerosol 0.1 mL by Nasal route as needed for OpioidReversal. [place] the contents of one device (0.1mL) into one nostril upon signs of opioid overdose. Call 911. May repeat dose in other nostril if no response within 2-3 minutes. 1 Each 0 nalOXone (NARCAN) 4 mg/actuation Nasl [place], Non-Aerosol 0.1 mL by Nasal route as needed for OpioidReversal. [place] the contents of one device (0.1mL) into [...] Nightly Alyson Guillermo NP 40 mg at 05/02/25 5059 carvediloL (COREG) tablet 12.5 mg 12.5 mg Oral BID Alyson Guillermo NP 12.5 mg at 05/02/252153 dextrose 50 % solution 25 mL 25 mL Intravenous PRN Rajendra Petty MD (Ronny) dorzolamide-timoloL (COSOPT) 22.3-6.8 mg/mL ophthalmic solution 1 Drop 1 Drop Ophthalmic BID Alyson Guillermo, DERMATOLOGY TEACHER 1 Drop at 05/01/252235 gabapentin (NEURONTIN) capsule 300 mg 300 mg Oral Nightly Alyson Guillermo DERMATOLOGY TEACHER 300 mg at 05/02/252153 glucagon (GLUCAGEN) injection [...] 1 Drop 1 Drop Ophthalmic Nightly Alyson Guillermo DERMATOLOGY TEACHER 1 Drop at 05/01/252238 LORazepam (ATIVAN) tablet 0.5 mg 0.5 mg Oral Nightly Marcell Aguirre MD 0.5 mg at 05/02/252153 metFORMIN (GLUCOPHAGE) tablet 500 mg 500 mg Oral BID Marcell Alejandro MD 500 mg at 05/02/25 1735 morphine [...] IR REVAS FEM POP ART UNILAT W INTERPRETER AND TRANSLATOR 01/30/2025 IR REVAS FEM POP ART UNILAT W INTERPRETER AND TRANSLATOR 01/30/2025 Lawrence Wolf MD [facility] IR ULTRASOUND GUIDED VASCULAR ACCESS 01/17/2025 IR ULTRASOUND GUIDED VASCULAR ACCESS 01/17/2025 Lawrence Wolf MD [facility] IR ULTRASOUND GUIDED VASCULAR ACCESS 01/30/2025 IR ULTRASOUND GUIDED VASCULAR ACCESS 01/30/2025 Lawrence Wolf MD [facility] IR JOINT REPLACEMENT TOE SURGERY Left 01/31/2025 Left foot hallux amputation; Surgeon: Dacia Mills DPM; Location: [facility] MAIN OR; Service: Podiatry No family history [...] (L) 05/03/2025 GLU 109 (H) 05/03/2025 Radiology: OK US LOWER EXTREMITY ARTERIAL DUPLEX COMPLETE Result [...] was seen in coordination with the physician social and human services assistant/nurse practitioner. Patient with LLE angiogram with INTERPRETER AND TRANSLATOR of popliteal, TPT and peroneal artery 01/29 [...] insufficiency, sleep ap[facility] and [facility] and concern for wound [...] completed using voice recognition technology. Despite the designer writer's best efforts to proof read, it [...] left foot; Surgeon: Dacia Mills DPM; Location: [facility] MAIN OR; Service: Podiatry FOOT SURGERY Left 03/17/2025 left transmetatarsal amputation revision; Surgeon: Irineo Perez DPM; Location: [facility]; Service: Podiatry HYSTERECTOMY IR ANGIOGRAM EXTREMITY LEFT 01/30/2025 IR ANGIOGRAM EXTREMITY LEFT 01/30/2025 Lawrence Wolf MD [facility] IR ANGIOGRAM FEMORAL ARTERIO SHIFT 01/17/2025 IR ANGIOGRAM FEMORAL ARTERIO SHIFT 01/17/2025 Lawrence Wolf MD [facility] IR REVAS FEM POP ART UNILAT W INTERPRETER AND TRANSLATOR 01/30/2025 IR REVAS FEM POP ART UNILAT W INTERPRETER AND TRANSLATOR 01/30/2025 Lawrence Wolf MD [facility] IR [...] true Transportation Needs: No Transportation Needs (05/01/2025) [facility] IP Transportation In the past 12 months, has lack of reliable transportation kept you from medical appointments, meetings, work or from getting things needed for daily living?: No Physical Activity: Inactive (05/01/2025) Exercise Vital Sign Days of Exercise per Week: 0 days Minutes of Exercise per Session: 0 min Stress: No Stress Concern Present (05/01/2025) [employer] - Occupational Stress Questionnaire Feeling of Stress : Not at all Received from [employer] ([place], [place], [place], [place]) Family and Community Support Intimate Partner Violence: Not At Risk (08/06/2024) Received from [facility] Humiliation, Afraid, Rape, and Kick questionnaire Fear of Current or Ex-Partner: No Emotionally Abused: No Physically Abused: No Sexually Abused: No Housing Stability: Low Risk (08/06/2024) Received from [facility] Housing Stability Vital Sign Unable to [...] permission allowing today's photographs - using the Epic Haiku mathew. Lab and radiographic data reviewed. Thank [...] Wound Dehiscence Pt presents per ems from [facility], toes amputated on left foot, here for wound check. History obtained via patient. History limitations HPI: Skyler Bautista is a 84 y.o. female with a past medical history significant for the below pertinent for atrial fibrillation, CHF, CAD, prior cardiac arrest who comes from rehab facility at [facility] due to wound dehiscence and concern [...] 100% 97% 100% Weight: Height: 04/30/25 2000 04/30/25 2030 04/30/25 2100 04/30/25 2130 BP: 117/83 126/88 131/90 115/75 Pulse: [...] Pat Name: SKYLER BAUTISTA Department: DEPID Room: [facility] Gender: Female Rampman: CHANTEL : 1940 Requested By: DONNIE PLUMMER Order Number: [id number] Reading MD: Isidro Kennedy Measurements Intervals [place] Rate: 134 P: 203 CT: 145 QRS: -6 QRSD: 93 T: -78 [...] None In cases where narcotics are prescribed, [facility] report was obtained and reviewed. IMPRESSION: 1. Wound dehiscence 2. Typical atrial flutter (HCC) DISPOSITION: Admit Condition at Discharge/Transfer from Department: Stable Donnie Kaur MD Emergency Medicine 04/30/25 Donnie Kaur MD 04/30/25 9950 documented in this encounter Miscellaneous Notes * [...] Plan 06/06/25: CC Update, no bed at [facility] this date, post acute form completed, s/p [...] onincision daily while in hospital. Per Hospitalist note: Ready for discharge when / if?: [...] with pt, sister in room, s/p AKA, [facility], per pt and sister, [facility] if appropriate, anticipate need forambulance transport at d/c, CC following. * Query Response Document - Stephen Pickard MD - 05/28/2025 2:26 PM EDT [facility] CDI / HIM Coding Query Documentation PATIENT: SKYLER BAUTISTA : 1940 ADMIT DATE: 04/30/2025 4:07 PM DISCH DATE: RESPONDING PROVIDER #: [id number] PROVIDER QUERY RESPONSE TEXT: Clinically unable to [...] questions or assistance please contact Samuel Cota [facility] Vat Tender [phone]) Options provided: -- Sepsis associated with acute [...] on 2L IV FENTANYL X 3 DILAUDID MASONRY SUPERVISOR ORDERED IV ZOSYN TID IV VANCOMYCIN Q24H [...] not following FSBS Hypertension associated with diabetes ([facility]) - at goal on current rx Chronic heart failure with preserved ejection fraction (HCC) - Echo 2023 normal EF. - Euvolemic on exam Stage 3a chronic kidney disease (HCC) - Baseline approx 0.9-1.2. - stable Coronary 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 artery // Hx of CABG - History [...] 1118 by Nurse Daniela RN Outcome: Progressing Problem: Potential for injury Description: Related to: Procedure Goal: Patient is free from signs or symptoms of physical injury unrelated to the intended therapeutic effects of the procedure. 05/24/2025 1118 by Nurse Daniela RN Outcome: Completed 05/24/2025 1118 by Nurse Daniela RN Outcome: Progressing * Plan of Care - Lawrence Wolf MD - 05/22/2025 7:41 AM EDT L AKA scheduled for Tue at 0800. Lawrence [...] arterial studies 05/02 with significant PAD - SECURITY MANAGEMENT SPECIALIST stenosis Patent popliteal and TPT with severe stenosis Patent proximal INTERPRETER AND TRANSLATOR but occluded distally without reconstitution Patent DAREN with multifocal severe stenosis, occlusion at the level of the ankle and no distal reconstitution Significant small vessel disease in L foot Paroxysmal atrial fibrillation (HCC) Heart rate controlled. 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 - INTERPRETER AND TRANSLATOR coreg - cardiac monitoring -Rate controlled 05/20/25 Type 2 diabetes mellitus, without long-term current use of insulin (HCC) Last A1c 4.8 in 03/2024. INTERPRETER AND TRANSLATOR meds include none. - hold off on FSBS, correctional algorithm - rpt A1c 5.3 - stable 05/20/25 Hypertension associated with diabetes (HCC) Well controlled. - INTERPRETER AND TRANSLATOR coreg - monitor and adjust as needed -BP stable 05/20/25 Chronic heart failure with preserved ejection fraction (HCC) Echo 2023 normal EF. Euvolemic on exam - monitor I/O, daily weights - diuresis: INTERPRETER AND TRANSLATOR lasix on hold - INTERPRETER AND TRANSLATOR coreg -Stable 05/20/25 Stage 3a chronic kidney disease (HCC) Cre 1.05 at admit. Baseline approx 0.9-1.2. -Cr 0.91 Coronary 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 artery // Hx of CABG History of [...] PM EDT Inpt order on chart. On [facility] floor. Cont stay review for diabetic foot infection s/p transmetatarsal amputation of foot, left, PAD. Vascular surgery following. dining room coordinator to follow for dc planning. * [...] note were not included. IP ORDER IN [facility] 05/01 CONT STAY REVIEW ON TCU LOS [...] I discussed the angiogram findings- the left SECURITY MANAGEMENT SPECIALIST stenosis could be treated with an endarterectomy, the popliteal artery and TPT stenosis could be treated with repeat angioplasty, and the DAREN could be treated via retrograde access. However, the INTERPRETER AND TRANSLATOR and DAREN are distally occluded without reconstitution, [...] surgery. While the patient does have L SECURITY MANAGEMENT SPECIALIST disease, her L femoral pulse is still [...] Pro RN - 05/10/2025 12:24 PM EDT FOOD MANAGEMENT AIDE INPT STATUS SINCE 05/01 Diabetic foot infection [...] on AC d/t hx of SAH - INTERPRETER AND TRANSLATOR coreg - cardiac monitoring -Heart rate 75 Type 2 diabetes mellitus, without long-term current use of insulin ([facility]) Last A1c 4.8 in 03/2024. INTERPRETER AND TRANSLATOR meds include none. - hold off on FSBS, correctional algorithm - rpt A1c 5.3 Hypertension associated with diabetes (HCC) Well controlled. - INTERPRETER AND TRANSLATOR coreg - monitor and adjust as needed -Blood pressure 128/66 Chronic heart failure with preserved ejection fraction (HCC) Echo 2023 normal EF. Euvolemic on exam - monitor I/O, daily weights - diuresis: INTERPRETER AND TRANSLATOR lasix on hold - INTERPRETER AND TRANSLATOR coreg Stage 3a chronic kidney disease (HCC) Cre 1.05 at admit. Baseline approx 0.9-1.2. 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 artery // Hx of CABG History of [...] on AC d/t hx of SAH - INTERPRETER AND TRANSLATOR coreg - cardiac monitoring Type 2 diabetes mellitus, without long-term current use of insulin ([facility]) Last A1c 4.8 in 03/2024. INTERPRETER AND TRANSLATOR meds include none. - hold off on FSBS, correctional algorithm - rpt A1c 5.3 Hypertension associated with diabetes ([facility]) Well controlled. - INTERPRETER AND TRANSLATOR coreg - monitor and adjust as needed Chronic heart failure with preserved ejection fraction (HCC) Echo 2023 normal EF. Euvolemic on exam - monitor I/O, daily weights - diuresis: INTERPRETER AND TRANSLATOR lasix on hold - INTERPRETER AND TRANSLATOR coreg Stage 3a chronic kidney disease (HCC) Cre 1.05 at admit. Baseline approx 0.9-1.2. 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 artery // Hx of CABG History of [...] 10:00 AM EDT Office Visit [facility] [address] [address] Renae Durand, LIGHTING EQUIPMENT OPERATOR [address] [place] [address] HIGINIO, BEATRIZ [id number] Pending Results Name Type Priority Associated Diagnoses [...] limb ischemia of left lower extremity (HCC) CT AMPUTATION THIGH THROUGH FEMUR ANY LEVEL 05/24/2025 8:06 AM EDT PAD (peripheral artery disease) Critical limb ischemia of left lower extremity (HCC) Special Needs pre op block per anethesia [facility] ANES GUIDANCE FOR NERVE BLOCK STAT [...] progress. Palliative Care Consult Note Consult Location: [facility] Length of Stay: 12 - [...] helpful to explore this further with floor Physical Education Specialist.Support provided along with [facility] role. Patient reports [...] more Additional information: adult children, majority rules, 2/2. Surrogate by: NOK per KRS Disposition: TBD, [...] Wound Dehiscence Pt presents per ems from [facility], toes amputated on left foot,here for wound check. History of Present Illness: Sykler Bautista is a 84 y.o. female with [...] Paroxysmal atrial fibrillation (HCC) Coronary 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 artery // Hx of CABG Type 2 [...] true Transportation Needs: No Transportation Needs (05/01/2025) [facility] IP Transportation In the past 12 months, has lack of reliable transportation kept you frommedical appointments, meetings, work or from getting things needed fordaily living?: No Physical Activity: Inactive (05/01/2025) Exercise Vital Sign Days of Exercise per Week: 0 days Minutes of Exercise per Session: 0 min Stress: No Stress Concern Present (05/01/2025) [employer] - Occupational StressQuestionnaire Feeling of Stress : Not at all Social Connections: Low Risk (10/30/2023) Received from [employer] ([place], [place], [place], [place]) Family and Community Support Help with Day to Day Activities: Not on file Feeling Lonely or Isolated: Not on file Intimate Partner Violence: Not At Risk (08/06/2024) Received from [facility] Humiliation, Afraid, Rape, and Kick questionnaire Fear of Current or Ex-Partner: No Emotionally Abused: No Physically Abused: No Sexually Abused: No Housing Stability: Low Risk (08/06/2024) Received from [facility] Housing Stability Vital Sign Unable to [...] Oral BID with Meals1 'box' at 05/13/25 09 CRISTINE powder oral supplement 1 Packet 1 Packet Oral BID 1 Packet at05/13/25 09 latanoprost (XALATAN) 0.005 % ophthalmic solution [...] were not included. Name: Skyler Bautista ADDRESS: [address] [place] [address] : 1940 AGE: 84 y.o. Hospital: [facility] Requesting Attending: Dr. Aguirre Primary [...] PAD with ulcer statuspost LLE angiogram with INTERPRETER AND TRANSLATOR of peroneal, tibioperoneal trunk andpopliteal arteries on [...] History: 01/30/2025 - Left LE angiogram with INTERPRETER AND TRANSLATOR of peroneal and tibioperoneal trunkwith 1.5 x 80 mm and 2 x 200 balloons. INTERPRETER AND TRANSLATOR of the popliteal artery with3.5 x 120 [...] Not Taking nalOXone (NARCAN) 4 mg/actuation Nasl [place], Non-Aerosol 0.1 mL by Nasalroute as needed for Opioid Reversal. [place] the contents of one device(0.1mL) into one nostril upon signs of opioid overdose. Call 911. Mayrepeat dose in other nostril if no response within 2-3 minutes. 1 Each 0 nalOXone (NARCAN) 4 mg/actuation Nasl [place], Non-Aerosol 0.1 mL by Nasalroute as needed for Opioid Reversal. [place] the contents of one device(0.1mL) into one [...] solution 1 Drop 1 DropOphthalmic Nightly Alyson Guillermo, DERMATOLOGY TEACHER 1 Drop at 05/01/252238 LORazepam (ATIVAN) tablet [...] Rash Past Medical History: Diagnosis Date A-fib ([facility]) Arthritis Blood circulation, collateral CAD (coronary artery disease) Cardiac dysrhythmia Carotid artery occlusion CHF (congestive heart failure) ([facility]) Diabetes mellitus ([facility]) not currently on meds,rehab discontued Difficult intravenous access possible use of iv therapy/ultrasound to help with venous access. RIVREA (dyspnea on exertion) Encounter for blood transfusion Fatty liver Glaucoma Heartburn Hyperlipidemia Hypertension Liver disease Mixed hyperlipidemia Peripheral vascular disease Renal disorder Renal insufficiency Shortness of breath Sleep apnea pt has cpap, but is not using. Stroke ([facility]) pt's states around 3 years ago. Urinary [...] IR REVAS FEM POP ART UNILAT W INTERPRETER AND TRANSLATOR 01/30/2025 IR REVAS FEM POP ART UNILAT W INTERPRETER AND TRANSLATOR 01/30/2025 Lawrence Wolf MD EDG IR IR [...] was seen in coordination with the physician social and human services assistant/nursepractitioner. Patient with LLE angiogram with INTERPRETER AND TRANSLATOR of popliteal, TPT and peroneal artery01/29 s/p [...] PASTORAL CARE Routine 05/02/2025 12:50 PM EDT [facility] LOWER EXTREMITY ARTERIAL DUPLEX COMPLETE PAULETTE [...] IR REVAS FEM POP ART UNILAT W INTERPRETER AND TRANSLATOR 01/30/2025 IR REVAS FEM POP ART UNILAT W INTERPRETER AND TRANSLATOR 01/30/2025 Lawrence Wolf MD EDG IR IR [...] true Transportation Needs: No Transportation Needs (05/01/2025) [facility] Transportation In the past 12 months, has lack of reliable transportation kept you frommedical appointments, meetings, work or from getting things needed fordaily living?: No Physical Activity: Inactive (05/01/2025) Exercise Vital Sign Days of Exercise per Week: 0 days Minutes of Exercise per Session: 0 min Stress: No Stress Concern Present (05/01/2025) [employer] - Occupational StressQuestionnaire Feeling of Stress : Not at all Received from [employer] ([place], [place], [place], [place]) Family and Community Support Intimate Partner Violence: Not At Risk (08/06/2024) Received from [facility] Humiliation, Afraid, Rape, and Kick questionnaire Fear of Current or Ex-Partner: No Emotionally Abused: No Physically Abused: No Sexually Abused: No Housing Stability: Low Risk (08/06/2024) Received from [facility] Housing Stability Vital Sign Unable to [...] Vitals: 05/01/25 1320 05/01/25 1409 05/01/25 1506 07/16/25 1716 BP: 108/55 BP Location: Left arm [...] verbally consented permission allowing today's photographs - usingSproom mathew. Lab and radiographic data reviewed. Thank you for asking me to participate in your patient's care. Jovanni Montesinos, LIGHTING EQUIPMENT OPERATOR 05/01/2025 BLOOD GAS, VENOUS STAT 04/30/2025 5:56 [...] 2.4 mg/dL 06/10/2025 11:11 AM EDT [facility] Blood VENOUS BLOOD / Unknown Venipuncture / Unknown 06/10/2025 10:32 AM EDT 06/10/2025 10:37 AM EDT us Trino Montiel MD CHEMISTRY ORDERABLES Final Re sult [facility] 1 [facility] , [address] [place] [id number] * (ABNORMAL) COMPREHENSIVE METABOLIC PANEL (06/10/2025 10:32 AM EDT) Sodium 137 136 - 145 mmol/L 06/10/2025 11:11 AM EDT [facility] Potassium 3.9 3.5 - 5.0 mmol/L 06/10/2025 11:11 AM EDT [facility] Chloride 104 98 - 107 mmol/L 06/10/2025 11:11 AM EDT [facility] Total CO2 22 22 - 29 mmol/L 06/10/2025 11:11 AM EDT [facility] Anion Gap 11 7 - 16 mmol/L 06/10/2025 11:11 AM EDT [facility] Calcium 8.8 8.8 - 10.4 mg/dL 06/10/2025 11:11 AM EDT [facility] Glucose Lvl 177(H) 70 - 99 mg/dL 06/10/2025 11:11 AM EDT [facility] BUN 23 8 - 23 mg/dL 06/10/2025 11:11 AM EDT [facility] Creatinine 1.14 0.51 - 1.30 mg/dL 06/10/2025 11:11 AM EDT [facility] Albumin 3.4 3.2 - 4.6 gm/dL 06/10/2025 11:11 AM EDT [facility] Total Protein 6.5 6.4 - 8.3 gm/dL 06/10/2025 11:11 AM EDT [facility] Bili Total 0.6 0.2 - 1.3 mg/dL 06/10/2025 11:11 AM EDT [facility] ALT 18 <=41 U/L 06/10/2025 11:11 AM EDT [facility] AST 26 <=40 U/L 06/10/2025 11:11 AM EDT [facility] Alk Phos 159(H) 36 - 123 U/L 06/10/2025 11:11 AM EDT [facility] eGFR (CKD-EPIcr 2020) 47(L) >=60 mL/min/1.7 3 m2 06/10/2025 11:11 AM EDT [facility] Comment:Estimated GFR was ca lculated using the CKD-EPIcr (2020) equation refit without race. The equation is recommended by the National Kidney Foundation - [place] [employer] of Nephrology Task Force. Blood VENOUS BLOOD / Unknown Venipuncture / Unknown 06/10/2025 10:32 AM EDT 06/10/2025 10:37 AM EDT us Trino Montiel MD CHEMISTRY ORDERABLES Final Re sult [facility] [address] [facility] [facility] , [place] [address] * (ABNORMAL) CBC (06/10/2025 10:32 AM EDT) [...] 10:37 AM EDT us Trino Montiel MD HEMATOLOGY ORDERABLES Final R esult Performing Organization Address City/[facility]/ZIP Co de Phone Number [employer] [address] [facility], [place] [address] * ECG AND WAVEFORMS - TELEMETRY (06/10/2025 7:00 AM EDT) ECG INTERPRET Atrial Fib [facility] Comment:2 PVCs 06/10/2025 7:00 AM EDT Narrative [facility] - 06/10/2025 9:23 AM EDT ROUTINE SDP QRS 0.08 QT 0.41 See Clinical Report link for waveform capture us Unknown Provider POINT OF CARE CARDIOLOGY Final Result Performing Organization Address [facility] Co de Phone Number [facility] 1 [place] [address] * XR CHEST AP PORTABLE (06/09/2025 9:10 [...] office of the ordering clinician. Alyson Guillermo DERMATOLOGY TEACHER IMG DIAGNOSTIC IMAGING ORDERA BLES Final Result * (ABNORMAL) URINE CULTURE (NO STAIN) (06/09/2025 11:46 AM EDT) Culture Positive Growth(A) 06/11/2025 10:16 AM EDT [facility] [employer] [facility], [facility] Culture >100,000 CFU/mL Klebsiella species SUSCEPTIBI LITY RESULT 06/11/2025 10:16 AM EDT [facility] [employer], [facility] Culture >100,000 CFU/mL Escherichia coli SUSCEPTIBI LITY RESULT 06/11/2025 10:16 AM EDT [facility] [employer], [facility] Culture 50,000 CFU/mL Proteus mirabilis SUSCEPTIBI LITY RESULT 06/11/2025 10:16 AM EDT [facility] [employer], [facility] Comment:No further workup. Urine STRUCTURE [...] AL ORDERABLES Final Result Performing Organization Address [facility] Co de Phone Number [facility] [employer], [facility] 1 [facility], [address] [place] [phone] * EXTRA HUITRON URINE CX (06/09/2025 11:46 AM EDT) Urine STRUCTURE OF URINARY TRACT PROPER / Unknown 06/09/2025 11:46 AM EDT 06/09/2025 11:49 AM EDT [employer] Monica Pandamichael BROWN MICROBIOLOGY - GENER AL ORDERABLES Final Result Performing Organization Address [facility] de Phone Number [facility] 1 [place] [address] * (ABNORMAL) URINALYSIS REFLEX (06/09/2025 11:46 AM EDT) UA Color Yellow 06/09/2025 12:13 PM EDT [facility] UA Appear Cloudy(A) Clear 06/09/2025 12:13 PM EDT [facility] UA Glucose Negative Negative mg/dL 06/09/2025 12:13 PM EDT [facility] UA Ketones Negative Negative mg/dL 06/09/2025 12:13 PM EDT [facility] UA Blood 1+ (0.06 - 0.1 mg/dL)(A) [...] AM EDT 06/09/2025 11:49 AM EDT Brenda Moyern Pandahowiebrandie LIGHTING EQUIPMENT OPERATOR URINE ORDERABLES Fin al Result [facility] 1 [facility] , [address] [place] [phone] * ECG AND WAVEFORMS - TELEMETRY (06/09/2025 7:00 AM EDT) ECG INTERPRET Atrial Fib [facility] 06/09/2025 7:00 AM EDT Narrative [facility] - 06/09/2025 8:53 AM EDT RT ROUTINE QRS 0.11 See Clinical Report link for waveform capture us Unknown Provider POINT OF CARE CARDIOLOGY Final Result Performing Organization Address [facility] Co de Phone Number [facility] 1 [place] [address] * ECG AND WAVEFORMS - TELEMETRY (06/08/2025 8:23 PM EDT) ECG INTERPRET Atrial Fib [facility] 06/08/2025 8:23 PM EDT Narrative [facility] - 06/08/2025 8:25 PM EDT PVC'S-ROUTINE /KD QRS 0.09 See Clinical Report link for waveform capture us Unknown Provider POINT OF CARE CARDIOLOGY Final Result Performing Organization Address [facility] de Phone Number [facility] 1 [place] [address] * ECG AND WAVEFORMS - TELEMETRY (06/08/2025 8:24 AM EDT) ECG INTERPRET Atrial Fib [facility] 06/08/2025 8:24 AM EDT Narrative [facility] - 06/08/2025 9:15 AM EDT RT ROUTINE QRS 0.08 See Clinical Report link for waveform capture us Unknown Provider POINT OF CARE CARDIOLOGY Final Result Performing Organization Address [facility] de Phone Number [facility] [address] [place] [address] * ECG AND WAVEFORMS - TELEMETRY (06/07/2025 9:25 PM EDT) ECG INTERPRET Atrial Fib [facility] 06/07/2025 9:25 PM EDT Narrative [facility] - 06/07/2025 9:34 PM EDT PVC S -ROUTINE (AM) QRS 0.11 See Clinical Report link for waveform capture us Unknown Provider POINT OF CARE CARDIOLOGY Final Result Performing Organization Address [facility]/ZIP Co de Phone Number [facility] 1 [place] [phone] * ECG AND WAVEFORMS - TELEMETRY (06/07/2025 9:25 PM EDT) ECG INTERPRET Atrial Fib [facility] 06/07/2025 9:25 PM EDT Narrative [facility] - 06/07/2025 9:34 PM EDT ROUTINE (AM) QRS 0.11 See Clinical Report link for waveform capture us Unknown Provider POINT OF CARE CARDIOLOGY Final Result Performing Organization Address [facility]/ZIP Co de Phone Number [facility] [address] [place] [address] * ECG AND WAVEFORMS - TELEMETRY (06/07/2025 8:07 AM EDT) [facility] ECG INTERPRET Atrial Fib [facility] 06/07/2025 8:07 AM EDT Narrative [facility] - 06/07/2025 8:09 AM EDT EH - ROUTINE; PVCs QRS 0.10 See Clinical Report link for waveform capture us Unknown Provider POINT OF CARE CARDIOLOGY Final Result Performing Organization Address [facility]/ZIP Co de Phone Number [facility] [address] [place] [address] * (ABNORMAL) BASIC METABOLIC PANEL (06/07/2025 7:09 AM EDT) Pathologist [facility] Sodium 137 136 - 145 mmol/L 06/07/2025 [...] - 10.4 mg/dL 06/07/2025 8:30 AM EDT [facility] Glucose Lvl 114(H) 70 - 99 mg/dL 06/07/2025 8:30 AM EDT [facility] BUN 19 8 - 23 mg/dL 06/07/2025 8:30 AM EDT [facility] Creatinine 1.07 0.51 - 1.30 mg/dL 06/07/2025 8:30 AM EDT [facility] eGFR (CKD-EPIcr 2020) 51(L) >=60 mL/min/1.7 3 m2 06/07/2025 8:30 AM EDT [facility] Comment:Estimated GFR was ca lculated using the CKD-EPIcr (2020) equation refit without race. The equation is recommended by the National Kidney Foundation - [place] [employer] of Nephrology Task Force. Blood VENOUS BLOOD / Unknown Venipuncture / Unknown 06/07/2025 7:09 AM EDT 06/07/2025 7:57 AM EDT us Trino Montiel MD CHEMISTRY ORDERABLES Final Re sult Performing Organization Address City/[facility]/ZIP Co de Phone Number [address], [place] [address] * ECG AND WAVEFORMS - TELEMETRY (06/06/2025 7:05 PM EDT) ECG INTERPRET Atrial Fib [facility] 06/06/2025 7:05 PM EDT Narrative [facility] - 06/06/2025 8:28 PM EDT ROUTINE/PVC/PAC/af CT 0.20 QRS 0.11 RR 0.80 QT 0.49 QTc 0.55 See Clinical Report link for waveform capture us Unknown Provider POINT OF CARE CARDIOLOGY Final Result [facility] 1 [place] [address] * ECG AND WAVEFORMS - TELEMETRY (06/06/2025 7:05 PM EDT) ECG INTERPRET Atrial Fib [facility] 06/06/2025 7:05 PM EDT Narrative [facility] - 06/06/2025 8:27 PM EDT ROUTINE/PVC/PAC/af CT 0.20 QRS 0.11 RR 0.80 QT 0.49 QTc 0.55 See Clinical Report link for waveform capture us Unknown Provider POINT OF CARE CARDIOLOGY Edited Result - Final Performing Organization Address [facility] Co de Phone Number [facility] [address] [place] [address] * ECG AND WAVEFORMS - TELEMETRY (06/06/2025 7:34 AM EDT) [facility] ECG INTERPRET Atrial Fib [facility] 06/06/2025 7:34 AM EDT Narrative [facility] - 06/06/2025 7:46 AM EDT ROUTINE W/ PVC (LZ) QRS 0.10 See Clinical Report link for waveform capture us Unknown Provider POINT OF CARE CARDIOLOGY Final Result Performing Organization Address [facility] de Phone Number [facility] [address] [place] [address] * ECG AND WAVEFORMS - TELEMETRY (06/05/2025 7:05 PM EDT) [facility] ECG INTERPRET Sinus Rhythm w/ First Degree AVB [facility] 06/05/2025 7:05 PM EDT Narrative [facility] - 06/05/2025 8:21 PM EDT ROUTINE/1stAVB/IVCD/af CT 0.22 QRS 0.12 RR 0.66 QT 0.40 QTc 0.49 See Clinical Report link for waveform capture us Unknown Provider POINT OF CARE CARDIOLOGY Final Result Performing Organization Address [facility] Co de Phone Number [facility] [address] [place] [address] * MAGNESIUM LEVEL (06/05/2025 7:27 AM EDT) [facility] Magnesium 1.6 1.6 - 2.4 mg/dL 06/05/2025 8:27 AM EDT [facility] Blood VENOUS BLOOD / Unknown Venipuncture / Unknown 06/05/2025 7:27 AM EDT 06/05/2025 7:36 AM EDT us Trino Montiel MD CHEMISTRY ORDERABLES Final Re sult [facility] [address] [facility] , [place] [address] * (ABNORMAL) COMPREHENSIVE METABOLIC PANEL (06/05/2025 7:27 [...] 06/05/2025 8:27 AM EDT [facility] AST 29 <=40 U/L 06/05/2025 8:27 AM EDT [facility] Alk Phos 140(H) 36 - 123 U/L 06/05/2025 8:27 AM EDT [facility] eGFR (CKD-EPIcr 2020) 54(L) >=60 mL/min/1.7 3 m2 06/05/2025 8:27 AM EDT [facility] Comment:Estimated GFR was ca lculated using the CKD-EPIcr (2020) equation refit without race. The equation is recommended by the National Kidney Foundation - [place] [employer] of Nephrology Task Force. Blood VENOUS BLOOD / Unknown Venipuncture / Unknown 06/05/2025 7:27 AM EDT 06/05/2025 7:36 AM EDT us Trino Montiel MD CHEMISTRY ORDERABLES Final Re sult [facility] 1 [facility] , [place] [address] * (ABNORMAL) CBC (06/05/2025 7:27 AM EDT) WBC 4.8 3.7 - 10.3 x10(3)/mcL 06/05/2025 7:55 AM EDT [facility] RBC 2.44(L) 3.90 - 5.20 x10(6)/mcL 06/05/2025 7:55 AM EDT [facility] Hgb 8.4(L) 11.2 - 15.7 g/dL 06/05/2025 7:55 AM EDT [facility] Hct 26.9(L) 34.0 - 45.0 % 06/05/2025 7:55 AM EDT [facility] MCV 110.2(H) 80.0 - 100.0 fL 06/05/2025 7:55 AM EDT [facility] MCH 34.4(H) 26.0 - 34.0 pg 06/05/2025 7:55 AM EDT [facility] MCHC 31.2 30.7 - 35.5 g/dL 06/05/2025 7:55 AM EDT [facility] RDW 19.1(H) <=14.9 % 06/05/2025 7:55 AM EDT [facility] Platelet 106(L) 155 - 369 x10(3)/mcL 06/05/2025 7:55 AM EDT [facility] MPV 12.4 8.8 - 12.5 fL 06/05/2025 7:55 AM EDT [facility] Blood VENOUS BLOOD / Unknown Venipuncture / Unknown 06/05/2025 7:27 AM EDT 06/05/2025 7:36 AM EDT us Trino Montiel MD HEMATOLOGY ORDERABLES Final R esult [facility], [address], [place] [address] * ECG AND WAVEFORMS - TELEMETRY (06/05/2025 7:09 AM EDT) ECG INTERPRET Atrial Fib [facility] 06/05/2025 7:09 AM EDT Narrative [facility] - 06/05/2025 8:00 AM EDT ROUTINE W/ PVC (LZ) QRS 0.11 See Clinical Report link for waveform capture us Unknown Provider POINT OF CARE CARDIOLOGY Final Result [facility] [address] [place] [id number] * ECG AND WAVEFORMS - TELEMETRY (06/04/2025 7:10 PM EDT) ECG INTERPRET Atrial Fib [facility] 06/04/2025 7:10 PM EDT Narrative [facility] - 06/04/2025 8:04 PM EDT ROUTINE/PVCs/af QRS 0.07 See Clinical Report link for waveform capture us Unknown Provider POINT OF CARE CARDIOLOGY Final Result [place] [id number] * XR CHEST PA AND LATERAL (06/04/2025 [...] * (ABNORMAL) CBC (06/04/2025 7:52 AM EDT) [facility] WBC 4.1 3.7 - 10.3 x10(3)/mcL 06/04/2025 8:12 AM EDT [facility] RBC 2.30(L) 3.90 - 5.20 x10(6)/mcL 06/04/2025 [...] HEMATOLOGY ORDERABLES Final Result [facility] [address] [facility] , [address] [place] [id number] * (ABNORMAL) RENAL FUNCTION PANEL (06/04/2025 7:52 [...] mmol/L 06/04/2025 8:30 AM EDT [facility] Anion Gap 10 7 - 16 mmol/L 06/04/2025 8:30 AM EDT [facility] Calcium 8.8 8.8 - 10.4 mg/dL 06/04/2025 8:30 AM EDT [facility] Glucose Lvl 135(H) 70 - 99 mg/dL 06/04/2025 8:30 AM EDT [facility] BUN 14 8 - 23 mg/dL 06/04/2025 8:30 AM EDT [facility] Creatinine 0.92 0.51 - 1.30 mg/dL 06/04/2025 8:30 AM EDT [facility] Albumin 3.1(L) 3.2 - 4.6 gm/dL 06/04/2025 8:30 AM EDT [facility] Phosphorus 3.7 2.5 - 4.5 mg/dL 06/04/2025 8:30 AM EDT [facility] eGFR (CKD-EPIcr 2020) 61 >=60 mL/min/1.7 3 m2 06/04/2025 8:30 AM EDT [facility] Comment:Estimated GFR was ca lculated using the CKD-EPIcr (2020) equation refit without race. The equation is recommended by the [employer] - [place] [employer] Neph[employer] Task Force. Blood VENOUS BLOOD / Unknown Venipuncture / Unknown 06/04/2025 7:52 AM EDT 06/04/2025 7:57 AM EDT us Stephen Pickard MD CHEMISTRY ORDERABLES Final R esult [facility] 1 [facility] , [place] [address] * ECG AND WAVEFORMS - TELEMETRY (06/04/2025 7:29 AM EDT) ECG INTERPRET Atrial Fib [facility] 06/04/2025 7:29 AM EDT Narrative [facility] - 06/04/2025 8:19 AM EDT ROUTINE W/ PVC (LZ) QRS 0.11 See Clinical Report link for waveform capture us Unknown Provider POINT OF CARE CARDIOLOGY Final Result Performing Organization Address [facility] Co de Phone Number [facility] [address] [place] [address] * ECG AND WAVEFORMS - TELEMETRY (06/03/2025 8:07 PM EDT) ECG INTERPRET Atrial Fib [facility] 06/03/2025 8:07 PM EDT Narrative [facility] - 06/03/2025 8:11 PM EDT w/ PVC ROUTINE / RG See Clinical Report link for waveform capture us Unknown Provider POINT OF CARE CARDIOLOGY Final Result Performing Organization Address [facility] de Phone Number [facility] 1 [place] [address] * ECG AND WAVEFORMS - TELEMETRY (06/03/2025 7:00 AM EDT) ECG INTERPRET Atrial Fib [facility] 06/03/2025 7:00 AM EDT Narrative [facility] - 06/03/2025 8:44 AM EDT RS, ROUTINE, PVCS QRS 0.08 See Clinical Report link for waveform capture us Unknown Provider POINT OF CARE CARDIOLOGY Final Result Performing Organization Address [facility] de Phone Number [facility] 1 [place] [address] * (ABNORMAL) RENAL FUNCTION PANEL (06/03/2025 5:56 [...] - 16 mmol/L 06/03/2025 6:51 AM EDT [facility] Calcium 8.4(L) 8.8 - 10.4 mg/dL 06/03/2025 6:51 AM EDT [facility] Glucose Lvl 117(H) 70 - 99 mg/dL 06/03/2025 6:51 AM EDT [facility] BUN 9 8 - 23 mg/dL 06/03/2025 6:51 AM EDT [facility] Creatinine 0.80 0.51 - 1.30 mg/dL 06/03/2025 6:51 AM EDT [facility] Albumin 3.0(L) 3.2 - 4.6 gm/dL 06/03/2025 6:51 AM EDT [facility] Phosphorus 3.0 2.5 - 4.5 mg/dL 06/03/2025 6:51 AM EDT [facility] eGFR (CKD-EPIcr 2020) 72 >=60 mL/min/1.7 3 m2 06/03/2025 6:51 AM EDT [facility] Comment:Estimated GFR was ca lculated using the CKD-EPIcr (2020) equation refit without race. The equation is recommended by the [employer] - [place] [employer] Nephrology Task Force. Blood VENOUS BLOOD / Unknown Venipuncture / Unknown 06/03/2025 5:56 AM EDT 06/03/2025 6:18 AM EDT us Stephen Pickard MD CHEMISTRY ORDERABLES Final R esult [facility] [address] [facility] , [place] [address] * (ABNORMAL) CBC (06/03/2025 5:56 AM EDT) WBC 3.5(L) 3.7 - 10.3 x10(3)/mcL 06/03/2025 6:32 AM EDT [facility] RBC 2.23(L) 3.90 - 5.20 x10(6)/mcL 06/03/2025 6:32 AM EDT [facility] Hgb 7.8(L) 11.2 - 15.7 g/dL 06/03/2025 6:32 AM EDT [facility] Hct 24.5(L) 34.0 - 45.0 % 06/03/2025 6:32 AM EDT [facility] MCV 109.9(H) 80.0 - 100.0 fL 06/03/2025 6:32 AM EDT [facility] MCH 35.0(H) 26.0 - 34.0 pg 06/03/2025 6:32 AM EDT [facility] MCHC 31.8 30.7 - 35.5 g/dL 06/03/2025 6:32 AM EDT [facility] RDW 19.0(H) <=14.9 % 06/03/2025 6:32 AM EDT [facility] Platelet 109(L) 155 - 369 x10(3)/mcL 06/03/2025 6:32 AM EDT [facility] MPV 12.5 8.8 - 12.5 fL 06/03/2025 6:32 AM EDT [facility] Blood VENOUS BLOOD / Unknown Venipuncture / Unknown 06/03/2025 5:56 AM EDT 06/03/2025 6:19 AM EDT us Stephen Pickard MD HEMATOLOGY ORDERABLES Final Result [facility], [address] , [place] [address] * ECG AND WAVEFORMS - TELEMETRY (06/02/2025 7:00 PM EDT) ECG INTERPRET Atrial Fib [facility] 06/02/2025 7:00 PM EDT Narrative [facility] - 06/02/2025 7:37 PM EDT ROUTINE W/ PVCS(CW) QRS 0.06 See Clinical Report link for waveform capture us Unknown Provider POINT OF CARE CARDIOLOGY Final Result [facility] 1 [place] [address] * (ABNORMAL) GLUCOSE METER POC (06/02/2025 8:54 AM EDT) Glucose Meter POC 102(H) 70 - 100 mg/dL 06/02/2025 8:56 AM EDT [facility] Sample Type Capillary 06/02/2025 8:56 AM EDT [facility] Patient Status Non-Critical Patient 06/02/2025 8:56 AM EDT [facility] Blood BLOOD SPECIMEN / Unknown 06/02/2025 8:54 AM EDT 06/02/2025 8:56 AM EDT us Stephen Pickard MD POINT OF CARE TEST ORDERABLE S Final Result Performing Organization Address [facility] Co de Phone Number [facility] 1 [place] [address] * ECG AND WAVEFORMS - TELEMETRY (06/02/2025 7:03 AM EDT) ECG INTERPRET Atrial Fib [facility] Comment:PVCs 06/02/2025 7:03 AM EDT Narrative [facility] - 06/02/2025 8:44 AM EDT PVC's - ROUTINE - KB QRS 0.08 See Clinical Report link for waveform capture us Unknown Provider POINT OF CARE CARDIOLOGY Final Result Performing Organization Address City/[facility]/ZIP Co de Phone Number [facility] 1 [place] [address] * (ABNORMAL) GLUCOSE METER POC (06/01/2025 9:55 PM EDT) Glucose Meter POC 175(H) 70 - 100 mg/dL 06/01/2025 9:57 PM EDT [facility] Sample Type Capillary 06/01/2025 9:57 PM EDT [facility] Patient Status Non-Critical Patient 06/01/2025 9:57 PM EDT [facility] Blood BLOOD SPECIMEN / Unknown 06/01/2025 9:55 PM EDT 06/01/2025 9:57 PM EDT us Stephen Pickard MD POINT OF CARE TEST ORDERABLE S Final Result Performing Organization Address City/[facility]/ZIP Co de Phone Number [facility] 1 [place] [address] * ECG AND WAVEFORMS - TELEMETRY (06/01/2025 7:00 PM EDT) ECG INTERPRET Atrial Fib [facility] 06/01/2025 7:00 PM EDT Narrative [facility] - 06/01/2025 7:30 PM EDT ROUTINE W/ PVCS(CW) QRS 0.06 See Clinical Report link for waveform capture us Unknown Provider POINT OF CARE CARDIOLOGY Final Result Performing Organization Address [facility] Co de Phone Number [facility] 1 [place] [address] * XR CHEST AP PORTABLE (06/01/2025 4:14 [...] GLUCOSE METER POC (06/01/2025 2:54 PM EDT) [facility] Signature Glucose Meter POC 114(H) 70 - 100 mg/dL 06/01/2025 2:55 PM EDT [facility] Sample Type Capillary 06/01/2025 2:55 PM EDT [facility] Patient Status Non-Critical Patient 06/01/2025 2:55 PM EDT [facility] Blood BLOOD SPECIMEN / Unknown 06/01/2025 2:54 PM EDT 06/01/2025 2:55 PM EDT us Stephen Pickard MD POINT OF CARE TEST ORDERABLE S Final Result Performing Organization Address [facility]/ZIP Co de Phone Number [facility] 1 [place] [address] * ECG AND WAVEFORMS - TELEMETRY (06/01/2025 1:04 PM EDT) [facility] Signature ECG INTERPRET Error [facility] 06/01/2025 1:04 PM EDT Narrative [facility] - 06/01/2025 1:05 PM EDT See Clinical Report link for waveform capture Unknown Provider POINT OF CARE CARDIOLOGY Final Result Performing Organization Address [facility]/ZIP Co de Phone Number [facility] 1 [place] [address] * ECG AND WAVEFORMS - TELEMETRY (06/01/2025 12:35 PM EDT) ECG INTERPRET Atrial Fib [facility] Comment:PVCs 06/01/2025 12:3 5 PM EDT Narrative [facility] - 06/01/2025 12:41 PM EDT FREQ. PVC's RHYTHM CHANGE - KB See Clinical Report link for waveform capture us Unknown Provider POINT OF CARE CARDIOLOGY Final Result Performing Organization Address [facility]/ZIP Co de Phone Number [facility] 1 [place] [address] * (ABNORMAL) GLUCOSE METER POC (06/01/2025 9:41 AM EDT) Glucose Meter POC 109(H) 70 - 100 mg/dL 06/01/2025 9:57 AM EDT [facility] Sample Type Capillary 06/01/2025 9:57 AM EDT [facility] Patient Status Non-Critical Patient 06/01/2025 9:57 AM EDT [facility] Blood BLOOD SPECIMEN / Unknown 06/01/2025 9:41 AM EDT 06/01/2025 9:57 AM EDT us Stephen Pickard MD POINT OF CARE TEST ORDERABLE S Final Result Performing Organization Address [facility] Co de Phone Number [facility] 1 [place] [address] * ECG AND WAVEFORMS - TELEMETRY (06/01/2025 7:00 AM EDT) ECG INTERPRET Atrial Fib [facility] Comment:with PVCs 06/01/2025 7:00 AM EDT Narrative [facility] - 06/01/2025 8:17 AM EDT ROUTINE - KB QRS 0.05 See Clinical Report link for waveform capture us Unknown Provider POINT OF CARE CARDIOLOGY Final Result Performing Organization Address [facility]/ZIP Co de Phone Number [facility] 1 [place], [place] [id number] * (ABNORMAL) GLUCOSE METER POC (05/31/2025 9:21 PM EDT) Glucose Meter POC 172(H) 70 - 100 mg/dL 05/31/2025 9:24 PM EDT [facility] Sample Type Capillary 05/31/2025 9:24 PM EDT [facility] Patient Status Non-Critical Patient 05/31/2025 9:24 PM EDT [facility] Blood BLOOD SPECIMEN / Unknown 05/31/2025 9:21 PM EDT 05/31/2025 9:24 PM EDT us Stephen Pickard MD POINT OF CARE TEST ORDERABLE S Final Result Performing Organization Address City/[facility]/ZIP Co de Phone Number [facility] [address] [place] [id number] * ECG AND WAVEFORMS - TELEMETRY (05/31/2025 7:00 PM EDT) ECG INTERPRET Atrial Fib [facility] 05/31/2025 7:00 PM EDT Narrative [facility] - 05/31/2025 7:27 PM EDT ROUTINE W/ PVCS(CW) See Clinical Report link for waveform capture us Unknown Provider POINT OF CARE CARDIOLOGY Final Result Performing Organization Address [facility]/ZIP Co de Phone Number [facility] 1 [place] [address] * (ABNORMAL) GLUCOSE METER POC (05/31/2025 6:37 PM EDT) Glucose Meter POC 167(H) 70 - 100 mg/dL 05/31/2025 6:39 PM EDT [facility] Sample Type Capillary 05/31/2025 6:39 PM EDT [facility] Patient Status Non-Critical Patient 05/31/2025 6:39 PM EDT [facility] Blood BLOOD SPECIMEN / Unknown 05/31/2025 6:37 PM EDT 05/31/2025 6:39 PM EDT us Stephen Pickard MD POINT OF CARE TEST ORDERABLE S Final Result [facility] 1 [place] [address] * GLUCOSE METER POC (05/31/2025 4:29 PM EDT) Glucose Meter POC 95 70 - 100 mg/dL 05/31/2025 4:30 PM EDT [facility] Sample Type Capillary 05/31/2025 4:30 PM EDT [facility] Patient Status Non-Critical Patient 05/31/2025 4:30 PM EDT [facility] Blood BLOOD SPECIMEN / Unknown 05/31/2025 4:29 PM EDT 05/31/2025 4:30 PM EDT us Stephen Pickard MD POINT OF CARE TEST ORDERABLE S Final Result Performing Organization Address [facility]/ZIP Co de Phone Number [facility] 1 [place] [address] * ECG AND WAVEFORMS - TELEMETRY (05/31/2025 4:24 PM EDT) ECG INTERPRET Atrial Fib [facility] 05/31/2025 4:24 PM EDT Narrative [facility] - 05/31/2025 4:25 PM EDT [email or web address]//[email or web address] See Clinical Report link for waveform capture us Unknown Provider POINT OF CARE CARDIOLOGY Final Result Performing Organization Address City/[facility]/ZIP Co de Phone Number [facility] 1 [place] [address] * ECG AND WAVEFORMS - TELEMETRY (05/31/2025 4:23 PM EDT) ECG INTERPRET Atrial Fib [facility] 05/31/2025 4:23 PM EDT Narrative [facility] - 05/31/2025 4:24 PM EDT See Clinical Report link for waveform capture us Unknown Provider POINT OF CARE CARDIOLOGY Final Result Performing Organization Address City/[facility]/ZIP Co de Phone Number [facility] 1 [place] [address] * (ABNORMAL) GLUCOSE METER POC (05/31/2025 11:45 AM EDT) Glucose Meter POC 123(H) 70 - 100 mg/dL 05/31/2025 11:47 AM EDT [facility] Sample Type Capillary 05/31/2025 11:47 AM EDT [facility] Patient Status Non-Critical Patient 05/31/2025 11:47 AM EDT [facility] Blood BLOOD SPECIMEN / Unknown 05/31/2025 11:45 AM EDT 05/31/2025 11:47 AM EDT us Stephen Pickard MD POINT OF CARE TEST ORDERABLE S Final Result Performing Organization Address City/[facility]/ZIP Co de Phone Number [facility] 1 [place] [address] * ECG AND WAVEFORMS - TELEMETRY (05/31/2025 10:35 AM EDT) ECG INTERPRET Atrial Fib [facility] 05/31/2025 10:3 5 AM EDT Narrative [facility] - 05/31/2025 10:36 AM EDT See Clinical Report link for waveform capture us Unknown Provider POINT OF CARE CARDIOLOGY Final Result [facility] 1 [place] [address] * ECG AND WAVEFORMS - TELEMETRY (05/31/2025 7:58 AM EDT) ECG INTERPRET Atrial Fib [facility] 05/31/2025 7:58 AM EDT Narrative [facility] - 05/31/2025 8:02 AM EDT [email or web address]//AC See Clinical Report link for waveform capture us Unknown Provider POINT OF CARE CARDIOLOGY Final Result [facility] 1 [place] [address] * (ABNORMAL) RENAL FUNCTION PANEL (05/31/2025 7:29 AM EDT) Sodium 137 136 - 145 mmol/L 05/31/2025 8:37 AM EDT [facility] Potassium 3.7 3.5 - 5.0 mmol/L 05/31/2025 8:37 AM EDT [facility] Chloride 108(H) 98 - 107 mmol/L 05/31/2025 8:37 AM EDT [facility] Total CO2 20(L) 22 - 29 mmol/L 05/31/2025 8:37 AM EDT [facility] Anion Gap 9 7 - 16 mmol/L 05/31/2025 8:37 AM EDT [facility] Calcium 8.1(L) 8.8 - 10.4 mg/dL 05/31/2025 8:37 AM EDT [facility] Glucose Lvl 110(H) 70 - 99 mg/dL 05/31/2025 8:37 AM EDT [facility] BUN 10 8 - 23 mg/dL 05/31/2025 8:37 AM EDT [facility] Creatinine 0.81 0.51 - 1.30 mg/dL 05/31/2025 8:37 AM EDT [facility] Albumin 2.9(L) 3.2 - 4.6 gm/dL 05/31/2025 8:37 AM EDT [facility] Phosphorus 2.5 2.5 - 4.5 mg/dL 05/31/2025 8:37 AM EDT [facility] eGFR (CKD-EPIcr 2020) 71 >=60 mL/min/1.7 3 m2 05/31/2025 8:37 AM EDT [facility] Comment:Estimated GFR was ca lculated using the CKD-EPIcr (2020) equation refit without race. The equation is recommended by the [employer] - [place] [employer] Neph[employer] Task Force. Blood VENOUS BLOOD / Unknown Venipuncture / Unknown 05/31/2025 7:29 AM EDT 05/31/2025 7:53 AM EDT us Stephen Pickard MD CHEMISTRY ORDERABLES Final R esult [facility] 1 [facility] , [place] [address] * (ABNORMAL) CBC (05/31/2025 7:29 AM EDT) [...] 7:29 AM EDT 05/31/2025 7:52 AM EDT Stephen Pickard MD HEMATOLOGY ORDERABLES Final Result [facility] 1 [facility], [place] [address] * (ABNORMAL) GLUCOSE METER POC (05/30/2025 9:16 PM EDT) Glucose Meter POC 173(H) 70 - 100 mg/dL 05/30/2025 9:17 PM EDT [facility] Sample Type Capillary 05/30/2025 9:17 PM EDT [facility] Patient Status Non-Critical Patient 05/30/2025 9:17 PM EDT [facility] Blood BLOOD SPECIMEN / Unknown 05/30/2025 9:16 PM EDT 05/30/2025 9:17 PM EDT us Stephen Pickard MD POINT OF CARE TEST ORDERABLE S Final Result [address] [address] * ECG AND WAVEFORMS - TELEMETRY (05/30/2025 7:03 PM EDT) ECG INTERPRET Atrial Fib [facility] 05/30/2025 7:03 PM EDT Narrative [facility] - 05/30/2025 8:08 PM EDT ROUTINE (HM) QRS 0.09 See Clinical Report link for waveform capture us Unknown Provider POINT OF CARE CARDIOLOGY Final Result [facility] 1 [place] [address] * (ABNORMAL) GLUCOSE METER POC (05/30/2025 5:42 PM EDT) Glucose Meter POC 166(H) 70 - 100 mg/dL 05/30/2025 5:43 PM EDT [facility] Sample Type Capillary 05/30/2025 5:43 PM EDT [facility] Patient Status Non-Critical Patient 05/30/2025 5:43 PM EDT [facility] Blood BLOOD SPECIMEN / Unknown 05/30/2025 5:42 PM EDT 05/30/2025 5:43 PM EDT us Stephen Pickard MD POINT OF CARE TEST ORDERABLE S Final Result [facility] 1 [place] [address] * (ABNORMAL) GLUCOSE METER POC (05/30/2025 11:32 AM EDT) Glucose Meter POC 179(H) 70 - 100 mg/dL 05/30/2025 11:33 AM EDT [facility] Sample Type Capillary 05/30/2025 11:33 AM EDT [facility] Patient Status Non-Critical Patient 05/30/2025 11:33 AM EDT [facility] Blood BLOOD SPECIMEN / Unknown 05/30/2025 11:32 AM EDT 05/30/2025 11:33 AM EDT us Stephen Pickard MD POINT OF CARE TEST ORDERABLE S Final Result Performing Organization Address [facility]/ZIP Co de Phone Number [facility] 1 [place] [address] * (ABNORMAL) GLUCOSE METER POC (05/30/2025 8:25 AM EDT) Glucose Meter POC 104(H) 70 - 100 mg/dL 05/30/2025 8:26 AM EDT [facility] Sample Type Capillary 05/30/2025 8:26 AM EDT [facility] Patient Status Non-Critical Patient 05/30/2025 8:26 AM EDT [facility] Blood BLOOD SPECIMEN / Unknown 05/30/2025 8:25 AM EDT 05/30/2025 8:26 AM EDT us Stephen Pickard MD POINT OF CARE TEST ORDERABLE S Final Result [facility] 1 [place] [id number] * ECG AND WAVEFORMS - TELEMETRY (05/30/2025 7:00 AM EDT) Pathologist [facility] ECG INTERPRET Atrial Fib [facility] 05/30/2025 7:00 AM EDT Narrative [facility] - 05/30/2025 9:15 AM EDT RS, ROUTINE QRS 0.06 See Clinical Report link for waveform capture us Unknown Provider POINT OF CARE CARDIOLOGY Final Result [facility] 1 [place] [address] * (ABNORMAL) RENAL FUNCTION PANEL (05/30/2025 7:00 AM EDT) Pathologist [facility] Sodium 135(L) 136 - 145 mmol/L 05/30/2025 [...] mg/dL 05/30/2025 8:53 AM EDT [facility] eGFR (CKD-EPIcr 2020) 72 >=60 mL/min/1.7 3 m2 05/30/2025 8:53 AM EDT [facility] Comment:Estimated GFR was ca lculated using the CKD-EPIcr (2020) equation refit without race. The equation is recommended by the [employer] - [place] [employer]ph[employer] Task Force. Blood VENOUS BLOOD / Unknown Venipuncture / Unknown 05/30/2025 7:00 AM EDT 05/30/2025 8:17 AM EDT us Stephen Pickard MD CHEMISTRY ORDERABLES Final R esult [facility] [place] [address] [facility] , [place] [address] * (ABNORMAL) CBC (05/30/2025 7:00 AM EDT) [...] % 05/30/2025 8:26 AM EDT [facility] [place] Platelet 77(L) 155 - 369 x10(3)/mcL 05/30/2025 8:26 AM EDT [facility] MPV 12.5 8.8 - 12.5 fL 05/30/2025 8:26 AM EDT [facility], [facility] Blood VENOUS BLOOD / Unknown Venipuncture / Unknown 05/30/2025 7:00 AM EDT 05/30/2025 8:17 AM EDT Stephen Pickard MD HEMATOLOGY ORDERABLES Final Result Performing Organization Address City/[facility]/ZIP Co de Phone Number [facility], [facility] [address] [facility], [place] [address] * (ABNORMAL) GLUCOSE METER POC (05/29/2025 9:42 PM EDT) Glucose Meter POC 133(H) 70 - 100 mg/dL 05/29/2025 9:44 PM EDT [facility] Sample Type Capillary 05/29/2025 9:44 PM EDT [facility] Patient Status Non-Critical Patient 05/29/2025 9:44 PM EDT [facility] Blood BLOOD SPECIMEN / Unknown 05/29/2025 9:42 PM EDT 05/29/2025 9:44 PM EDT Stephen Pickard MD POINT OF CARE TEST ORDERABLE S Final Result Performing Organization Address City/Select [facility]/ZIP Co de Phone Number [facility] 1 [place] [address] * ECG AND WAVEFORMS - TELEMETRY (05/29/2025 7:03 PM EDT) ECG INTERPRET Atrial Fib [facility] 05/29/2025 7:03 PM EDT Narrative [facility] - 05/29/2025 7:59 PM EDT ROUTINE (HM) QRS 0.09 See Clinical Report link for waveform capture us Unknown Provider POINT OF CARE CARDIOLOGY Final Result Performing Organization Address City/[facility]/ZIP Co de Phone Number [facility] [address] [place] [phone] * (ABNORMAL) GLUCOSE METER POC (05/29/2025 5:39 PM EDT) Glucose Meter POC 152(H) 70 - 100 mg/dL 05/29/2025 5:41 PM EDT [facility] Sample Type Capillary 05/29/2025 5:41 PM EDT [facility] Patient Status Non-Critical Patient 05/29/2025 5:41 PM EDT [facility] Blood BLOOD SPECIMEN / Unknown 05/29/2025 5:39 PM EDT 05/29/2025 5:41 PM EDT us Stephen Pickard MD POINT OF CARE TEST ORDERABLE S Final Result Performing Organization Address [facility] Co de Phone Number [facility] [address] [place] [address] * GLUCOSE METER POC (05/29/2025 11:32 AM EDT) Glucose Meter POC 86 70 - 100 mg/dL 05/29/2025 11:33 AM EDT [facility] Sample Type Capillary 05/29/2025 11:33 AM EDT [facility] Patient Status Non-Critical Patient 05/29/2025 11:33 AM EDT [facility] Blood BLOOD SPECIMEN / Unknown 05/29/2025 11:32 AM EDT 05/29/2025 11:33 AM EDT us Stephen Pickard MD POINT OF CARE TEST ORDERABLE S Final Result Performing Organization Address City/[facility]/ZIP Co de Phone Number [facility] 1 [place] [address] * (ABNORMAL) GLUCOSE METER POC (05/29/2025 7:20 AM EDT) Glucose Meter POC 106(H) 70 - 100 mg/dL 05/29/2025 7:22 AM EDT [facility] Sample Type Capillary 05/29/2025 7:22 AM EDT [facility] Patient Status Non-Critical Patient 05/29/2025 7:22 AM EDT [facility] Blood BLOOD SPECIMEN / Unknown 05/29/2025 7:20 AM EDT 05/29/2025 7:22 AM EDT us Stephen Pickard MD POINT OF CARE TEST ORDERABLE S Final Result Performing Organization Address City/[facility]/ZIP Co de Phone Number [facility] [address] [place] [address] * ECG AND WAVEFORMS - TELEMETRY (05/29/2025 7:00 AM EDT) Pathologist [facility] ECG INTERPRET Atrial Fib [facility] 05/29/2025 7:00 AM EDT Narrative [facility] - 05/29/2025 7:50 AM EDT ECB - ROUTINE QRS 0.11 See Clinical Report link for waveform capture us Unknown Provider POINT OF CARE CARDIOLOGY Final Result Performing Organization Address [facility] Co de Phone Number [facility] [address] [place] [address] * VANCOMYCIN LEVEL AUC1 (05/29/2025 5:55 AM EDT) Pathologist [facility] Vancomycin AUC1 12.6 mcg/mL 6:54 AM EDT [employer] Blood VENOUS STRUCTURE / Unknown Line / Unknown 05/29/2025 5:55 AM EDT 05/29/2025 6:09 AM EDT us Stephen [place]ard MD CHEMISTRY ORDERABLES Final R esult Performing Organization Address City/[facility]/ZIP Co de Phone Number [facility] [employer] [address] [place] [address], [place] [address] * (ABNORMAL) CBC (05/29/2025 5:55 AM EDT) Pathologist [facility] WBC 3.6(L) 3.7 - 10.3 x10(3)/mcL 05/29/2025 [...] ORDERABLES Final R esult [facility] 1 [facility] , [place] [address] * (ABNORMAL) BASIC METABOLIC PANEL (05/29/2025 5:55 AM EDT) Sodium 137 136 - 145 mmol/L 05/29/2025 6:40 AM EDT [facility] Potassium 4.2 3.5 - 5.0 mmol/L 05/29/2025 6:40 AM EDT [facility] Chloride 107 98 - 107 mmol/L 05/29/2025 6:40 AM EDT [facility] Total CO2 21(L) 22 - 29 mmol/L 05/29/2025 6:40 AM EDT [facility] Anion Gap 9 7 - 16 mmol/L 05/29/2025 6:40 AM EDT [facility] Calcium 8.1(L) 8.8 - 10.4 mg/dL 05/29/2025 6:40 AM EDT [facility] Glucose Lvl 115(H) 70 - 99 mg/dL 05/29/2025 6:40 AM EDT [facility] BUN 14 8 - 23 mg/dL 05/29/2025 6:40 AM EDT [facility] Creatinine 0.81 0.51 - 1.30 mg/dL 05/29/2025 6:40 AM EDT [facility] eGFR (CKD-EPIcr 2020) 71 >=60 mL/min/1.7 3 m2 05/29/2025 6:40 AM EDT [facility] Comment:Estimated GFR was ca lculated using the CKD-EPIcr (2020) equation refit without race. The equation is recommended by the [employer] Kid[employer] - [place] [employer] of Nephrology Task Force. Blood VENOUS STRUCTURE / Unknown Line / Unknown 05/29/2025 5:55 AM EDT 05/29/2025 6:09 AM EDT us Luis Manuel Mays MD CHEMISTRY ORDERABLES Final Re sult [facility] 1 [facility] , [place] [address] * MAGNESIUM LEVEL (05/29/2025 5:55 AM EDT) Magnesium 2.0 1.6 - 2.4 mg/dL 05/29/2025 6:40 AM EDT [facility] Blood VENOUS STRUCTURE / Unknown Line / Unknown 05/29/2025 5:55 AM EDT 05/29/2025 6:09 AM EDT Luis Manuel Mays MD CHEMISTRY ORDERABLES Final Re sult Performing Organization Address [facility] de Phone Number [facility] [address] , [place] [address] * (ABNORMAL) PHOSPHORUS LEVEL (05/29/2025 5:55 AM EDT) Pathologist [facility] Phosphorus 2.4(L) 2.5 - 4.5 mg/dL 05/29/2025 6:40 AM EDT [facility] Blood VENOUS STRUCTURE / Unknown Line / Unknown 05/29/2025 5:55 AM EDT 05/29/2025 6:09 AM EDT Luis Manuel Mays MD CHEMISTRY ORDERABLES Final Re sult Performing Organization Address [facility] Phone Number [facility] [address] , [address] [place] [phone] * (ABNORMAL) TROPONIN-T HIGH SENSITIVITY 2HR (05/29/2025 2:31 AM EDT) Pathologist [facility] do-[id number]-R 2HR 47(H) <14 ng/L 05/29/2025 2:57 AM EDT [employer] [employer] hs-cTnT 2Hr Delta from Baseline -3 <4 ng/L 05/29/2025 2:57 AM EDT [employer] Blood VENOUS BLOOD / Unknown Venipuncture / Unknown 05/29/2025 2:31 AM EDT 05/29/2025 2:33 AM EDT Narrative [facility] - 05/29/2025 2:57 AM EDT Ingestion of angie doses of biotin (>5 mg/day) taken within 8 hours of drawing blood sample can interfere with this immunoassay test. Michael Beltre MD CHEMISTRY ORDERABLES Mita l Result Performing Organization Address [facility] de Phone Number [facility] [employer] [address] [place] [address] , [place] [address] * CT ANGIOGRAM PULMONARY W CONTRAST (05/29/2025 [...] Isovue 370 IV contrast as recorded in [employer]. 2-D multiplanar reconstructions and 3-D MIP reconstructions [...] using Isovue 370 IVcontrast as recorded in [employer]. 2-D multiplanar reconstructions and 3-D MIP reconstructions [...] W/ REFLEX (05/29/2025 12:48 AM EDT) Pathologist [facility] wi-eZvmfrmvo-E 50(H) <14 ng/L 05/29/2025 1:13 AM EDT [facility] Blood VENOUS BLOOD / Unknown Venipuncture / Unknown 05/29/2025 12:48 AM EDT 05/29/2025 12:48 AM EDT Narrative [facility] - 05/29/2025 1:13 AM EDT Ingestion of angie doses of biotin (>5 mg/day) taken within 8 hours of drawing blood sample can interfere with this immunoassay test. Michael Beltre MD CHEMISTRY ORDERABLES Mita l Result [facility] [address] [facility] , [place] [address] * (ABNORMAL) HEMOGLOBIN AND HEMATOCRIT (05/29/2025 12:48 AM EDT) Pathologist [facility] Hgb 8.2(L) 11.2 - 15.7 g/dL 05/29/2025 12:53 AM EDT [employer] Hct 25.5(L) 34.0 - 45.0 % 05/29/2025 12:53 AM EDT [employer] Blood VENOUS BLOOD / Unknown Venipuncture / Unknown 05/29/2025 12:48 AM EDT 05/29/2025 12:48 AM EDT Michael Beltre MD HEMATOLOGY ORDERABLES Fin al Result [facility] 1 [facility], [place] [address] * EK EKG 12 LEAD (05/29/2025 12:28 AM EDT) Anatomical Region Laterality Modality Electrocardiogra phy 05/28/2025 11:3 6 PM EDT Impressions 05/29/2025 7:[address] [facility] Test Date: 2025-05-28 Pat Name: SKYLER WILMINGTON Department: DEPID Room: 54 Gender: Female [place]: : 1940 Requested By: STEPHEN Earl Order Number: [id number] Reading MD: Shayy Vega DO Measurements Intervals [place] Rate: 108 P: 0 CT: 0 QRS: 12 QRSD: 86 T: 135 QT: 309 QTc: 416 Interpretive Statements ATRIAL FIBRILLATION WITH RAPID VENTRICULAR RESPONSE ABERRANT COMPLEXES VERSUS PVC'S ANTEROSEPTAL MYOCARDIAL INFARCTION, PROBABLY OLD Electronically Signed On 05-29-2025 07:24:13 EDT by Shayy Vega DO Narrative Procedure Note Shayy Vega DO - 05/29/[address] [facility] Test Date: 2025-05-28 Pat Name: [facility] Department: DEPID Room: 54 Gender: Female [place]: : 1940 Requested By: STEPHEN Earl Order Number: [id number] Reading MD: Shayy Vega DO Measurements Intervals [place] Rate: 108 P: 0 CT: 0 QRS: 12 QRSD: 86 T: 135 [...] - 100 mg/dL 05/29/2025 12:28 AM EDT [facility] Sample Type Capillary 05/29/2025 12:28 AM EDT [facility] Patient Status Non-Critical Patient 05/29/2025 12:28 AM EDT [facility] Blood BLOOD SPECIMEN / Unknown 05/29/2025 12:27 AM EDT 05/29/2025 12:28 AM EDT us Stephen Pickard MD POINT OF CARE TEST ORDERABLE S Final Result [facility] [address] [place] [address] * ECG AND WAVEFORMS - TELEMETRY (05/28/2025 8:59 PM EDT) ECG INTERPRET Atrial Fib [facility] 05/28/2025 8:59 PM EDT Narrative [facility] - 05/28/2025 9:01 PM EDT NEW ADMIT/MS QRS 0.11 See Clinical Report link for waveform capture us Unknown Provider POINT OF CARE CARDIOLOGY Final Result [facility] [address] [place] [address] * (ABNORMAL) GLUCOSE METER POC (05/28/2025 5:37 PM EDT) Glucose Meter POC 121(H) 70 - 100 mg/dL 05/28/2025 5:39 PM EDT [facility] Sample Type Capillary 05/28/2025 5:39 PM EDT [facility] Patient Status Non-Critical Patient 05/28/2025 5:39 PM EDT [facility] Blood BLOOD SPECIMEN / Unknown 05/28/2025 5:37 PM EDT 05/28/2025 5:39 PM EDT us Stephen Pickard MD POINT OF CARE TEST ORDERABLE S Final Result Performing Organization Address City/[facility]/ZIP Co de Phone Number [facility] 1 [place] [phone] * (ABNORMAL) HEMOGLOBIN (05/28/2025 2:51 PM EDT) Hgb 7.5(L) 11.2 - 15.7 g/dL 05/28/2025 4:08 PM EDT [employer] Blood VENOUS BLOOD / Unknown Venipuncture / Unknown 05/28/2025 2:51 PM EDT 05/28/2025 4:00 PM EDT us Stephen Pickard MD HEMATOLOGY ORDERABLES Final Result Performing Organization Address [facility] Co de Phone Number [employer] 1 [facility], [address] [place] [phone] * (ABNORMAL) GLUCOSE METER POC (05/28/2025 11:11 AM EDT) [facility] Glucose Meter POC 123(H) 70 - 100 mg/dL 05/28/2025 11:12 AM EDT [facility] Sample Type Capillary 05/28/2025 11:12 AM EDT [facility] Patient Status Non-Critical Patient 05/28/2025 11:12 AM EDT [facility] Blood BLOOD SPECIMEN / Unknown 05/28/2025 11:11 AM EDT 05/28/2025 11:12 AM EDT us Stephen [place]ard MD POINT OF CARE TEST ORDERABLE S Final Result Performing Organization Address [facility]/ZIP Co de Phone Number [facility] [address] [place], [place] [phone] * (ABNORMAL) CBC (05/28/2025 5:35 AM EDT) WBC 5.8 3.7 - 10.3 x10(3)/mcL 05/28/2025 [...] ORDERABLES Final R esult [facility] 1 [facility] , [place] [address] * (ABNORMAL) BASIC METABOLIC PANEL (05/28/2025 5:35 AM EDT) Sodium 138 136 - 145 mmol/L 05/28/2025 6:18 AM EDT [facility] Potassium 3.8 3.5 - 5.0 mmol/L 05/28/2025 6:18 AM EDT [facility] Chloride 109(H) 98 - 107 mmol/L 05/28/2025 6:18 AM EDT [facility] Total CO2 20(L) 22 - 29 mmol/L 05/28/2025 6:18 AM EDT [facility] Anion Gap 9 7 - 16 mmol/L 05/28/2025 6:18 AM EDT [facility] Calcium 8.0(L) 8.8 - 10.4 mg/dL 05/28/2025 6:18 AM EDT [facility] Glucose Lvl 141(H) 70 - 99 mg/dL 05/28/2025 6:18 AM EDT [facility] BUN 19 8 - 23 mg/dL 05/28/2025 6:18 AM EDT [facility] Creatinine 1.00 0.51 - 1.30 mg/dL 05/28/2025 6:18 AM EDT [facility] eGFR (CKD-EPIcr 2020) 55(L) >=60 mL/min/1.7 3 m2 05/28/2025 6:18 AM EDT [facility] Comment:Estimated GFR was ca lculated using the CKD-EPIcr (2020) equation refit without race. The equation is recommended by the National Kid[employer] - [place] [employer] of Nephrology Task Force. Blood VENOUS BLOOD / Unknown Venipuncture / Unknown 05/28/2025 5:35 AM EDT 05/28/2025 5:42 AM EDT us Luis Manuel Mays MD CHEMISTRY ORDERABLES Final Re sult [facility] 1 [facility] , [address] [place] [phone] * MAGNESIUM LEVEL (05/28/2025 5:35 AM EDT) Magnesium 2.2 1.6 - 2.4 mg/dL 05/28/2025 6:18 AM EDT [facility] Blood VENOUS BLOOD / Unknown Venipuncture / Unknown 05/28/2025 5:35 AM EDT 05/28/2025 5:42 AM EDT us Luis Manuel Mays MD CHEMISTRY ORDERABLES Final Re sult Performing Organization Address City/[facility]/ZIP Co de Phone Number [facility] 1 [facility] , [place] [phone] * PHOSPHORUS LEVEL (05/28/2025 5:35 AM EDT) Phosphorus 2.5 2.5 - 4.5 mg/dL 05/28/2025 6:18 AM EDT [facility] Blood VENOUS BLOOD / Unknown Venipuncture / Unknown 05/28/2025 5:35 AM EDT 05/28/2025 5:42 AM EDT Luis Manuel Mays MD CHEMISTRY ORDERABLES Final Re sult Performing Organization Address [facility] de Phone Number [facility] 1 [facility] , [place] [phone] * (ABNORMAL) GLUCOSE METER POC (05/28/2025 5:21 AM EDT) Glucose Meter POC 130(H) 70 - 100 mg/dL 05/28/2025 5:24 AM EDT [facility] Sample Type Capillary 05/28/2025 5:24 AM EDT [facility] Patient Status Non-Critical Patient 05/28/2025 5:24 AM EDT [facility] Blood BLOOD SPECIMEN / Unknown 05/28/2025 5:21 AM EDT 05/28/2025 5:24 AM EDT Stephen Pickard MD POINT OF CARE TEST ORDERABLE S Final Result Performing Organization Address City/[facility]/ZIP Co de Phone Number [facility] [address] [place] [address] * (ABNORMAL) GLUCOSE METER POC (05/27/2025 11:12 PM EDT) Glucose Meter POC 129(H) 70 - 100 mg/dL 05/27/2025 11:15 PM EDT [facility] Sample Type Capillary 05/27/2025 11:15 PM EDT [facility] Patient Status Non-Critical Patient 05/27/2025 11:15 PM EDT [facility] Blood BLOOD SPECIMEN / Unknown 05/27/2025 11:12 PM EDT 05/27/2025 11:15 PM EDT Stephen Pickard MD POINT OF CARE TEST ORDERABLE S Final Result [facility] 1 [place] [address] * (ABNORMAL) HEMOGLOBIN AND HEMATOCRIT (05/27/2025 6:24 PM EDT) Hgb 7.7(L) 11.2 - 15.7 g/dL 05/27/2025 6:42 PM EDT [facility] [employer] [place] Hct 23.6(L) 34.0 - 45.0 % 05/27/2025 6:42 PM EDT [employer] [place] Blood VENOUS BLOOD / Unknown Venipuncture / Unknown 05/27/2025 6:24 PM EDT 05/27/2025 6:35 PM EDT us Reuben Franz APRN HEMATOLOGY ORDERABLES Final Result Performing Organization Address City/[facility]/ZIP Co de Phone Number [employer] [address] [facility] [address], [place] [address] * (ABNORMAL) GLUCOSE METER POC (05/27/2025 6:02 PM EDT) Glucose Meter POC 155(H) 70 - 100 mg/dL 05/27/2025 6:05 PM EDT [facility] Sample Type Capillary 05/27/2025 6:05 PM EDT [facility] Patient Status Non-Critical Patient 05/27/2025 6:05 PM EDT [facility] Blood BLOOD SPECIMEN / Unknown 05/27/2025 6:02 PM EDT 05/27/2025 6:05 PM EDT Stephen Pickard MD POINT OF CARE TEST ORDERABLE S Final Result Performing Organization Address [facility] Co de Phone Number [facility] 1 [place] [address] * VANCOMYCIN LEVEL (05/27/2025 12:01 PM EDT) Vanco Random 8.4 mcg/mL 05/27/2025 12:24 PM EDT [facility] Blood VENOUS BLOOD / Unknown Venipuncture / Unknown 05/27/2025 12:01 PM EDT 05/27/2025 12:12 PM EDT Luis Manuel Mays MD CHEMISTRY ORDERABLES Final Re sult Performing Organization Address [facility] [place] [address] * (ABNORMAL) GLUCOSE METER POC (05/27/2025 11:25 AM EDT) Glucose Meter POC 181(H) 70 - 100 mg/dL 05/27/2025 11:27 AM EDT [facility] Sample Type Capillary 05/27/2025 11:27 AM EDT [facility] Patient Status Non-Critical Patient 05/27/2025 11:27 AM EDT [facility] Blood BLOOD SPECIMEN / Unknown 05/27/2025 11:25 AM EDT 05/27/2025 11:27 AM EDT Stephen Pickard MD POINT OF CARE TEST ORDERABLE S Final Result Performing Organization Address [facility] Co de Phone Number [place] [phone] * (ABNORMAL) HEMOGLOBIN AND HEMATOCRIT (05/27/2025 9:56 AM EDT) Hgb 8.4(L) 11.2 - 15.7 g/dL 05/27/2025 10:09 AM EDT [facility] Hct 26.3(L) 34.0 - 45.0 % 05/27/2025 10:09 AM EDT [facility] Blood VENOUS BLOOD / Unknown Venipuncture / Unknown 05/27/2025 9:56 AM EDT 05/27/2025 10:06 AM EDT us Reuben Franz LIGHTING EQUIPMENT OPERATOR HEMATOLOGY ORDERABLES Final Result [facility] 1 [place] [address] * EC ECHOCARDIOGRAM COMPLETE W DOPPLER AND [...] GLUCOSE METER POC (05/27/2025 5:09 AM EDT) [facility] Glucose Meter POC 139(H) 70 - 100 mg/dL 05/27/2025 5:10 AM EDT [facility] Sample Type Capillary 05/27/2025 5:10 AM EDT [facility] Patient Status Non-Critical Patient 05/27/2025 5:10 AM EDT [facility] Blood BLOOD SPECIMEN / Unknown 05/27/2025 5:09 AM EDT 05/27/2025 5:10 AM EDT Stephen Pickard MD POINT OF CARE TEST ORDERABLE S Final Result [facility] [address] [place], [place] [phone] * (ABNORMAL) CBC (05/27/2025 3:25 AM EDT) [facility] WBC 5.1 3.7 - 10.3 x10(3)/mcL 05/27/2025 [...] 05/27/2025 3:37 AM EDT [facility] MCHC 32.7 30.7 - 35.5 g/dL 05/27/2025 3:37 AM EDT [facility] RDW 20.0(H) <=14.9 % 05/27/2025 3:37 AM EDT [facility] Platelet 73(L) 155 - 369 x10(3)/mcL 05/27/2025 3:37 AM EDT [facility] MPV 12.2 8.8 - 12.5 fL 05/27/2025 3:37 AM EDT [facility] Blood VENOUS STRUCTURE / Unknown Venipuncture / Unknown 05/27/2025 3:25 AM EDT 05/27/2025 3:29 AM EDT us Luis Manuel Mays MD HEMATOLOGY ORDERABLES Final R esult [facility] [address] [facility] , [place] [address] * (ABNORMAL) BASIC METABOLIC PANEL (05/27/2025 3:25 AM EDT) Sodium 139 136 - 145 mmol/L 05/27/2025 3:58 AM EDT [facility] Potassium 4.1 3.5 - 5.0 mmol/L 05/27/2025 3:58 AM EDT [facility] Chloride 109(H) 98 - 107 mmol/L 05/27/2025 3:58 AM EDT [facility] Total CO2 20(L) 22 - 29 mmol/L 05/27/2025 3:58 AM EDT [facility] Anion Gap 10 7 - 16 mmol/L 05/27/2025 3:58 AM EDT [facility] Calcium 8.1(L) 8.8 - 10.4 mg/dL 05/27/2025 3:58 AM EDT [facility] Glucose Lvl 157(H) 70 - 99 mg/dL 05/27/2025 3:58 AM EDT [facility] [employer], [facility] BUN 21 8 - 23 mg/dL 05/27/2025 3:58 AM EDT [facility] Creatinine 0.92 0.51 - 1.30 mg/dL 05/27/2025 3:58 AM EDT [facility] eGFR (CKD-EPIcr 2020) 61 >=60 mL/min/1.7 3 m2 05/27/2025 3:58 AM EDT [facility] [employer], [facility] Comment:Estimated GFR was ca lculated using the CKD-EPIcr (2020) equation refit without race. The equation is recommended by the [employer] - [place] [employer] Task Force. Blood VENOUS STRUCTURE / Unknown Venipuncture / Unknown 05/27/2025 3:25 AM EDT 05/27/2025 3:29 AM EDT Luis Manuel Mays MD CHEMISTRY ORDERABLES Final Re sult Performing Organization Address [facility] Co de Phone Number [facility] [employer] , [place] [address] * MAGNESIUM LEVEL (05/27/2025 3:25 AM EDT) Magnesium 2.2 1.6 - 2.4 mg/dL 05/27/2025 3:58 AM EDT [facility] Blood VENOUS STRUCTURE / Unknown Venipuncture / Unknown 05/27/2025 3:25 AM EDT 05/27/2025 3:29 AM EDT Luis Manuel Mays MD CHEMISTRY ORDERABLES Final Re sult Performing Organization Address [facility]/ZIP Co de Phone Number [facility] [address] [facility] , [place] [address] * PHOSPHORUS LEVEL (05/27/2025 3:25 AM EDT) Phosphorus 4.1 2.5 - 4.5 mg/dL 05/27/2025 3:58 AM EDT [facility] [facility] VENOUS STRUCTURE / Unknown Venipuncture / Unknown 05/27/2025 3:25 AM EDT 05/27/2025 3:29 AM EDT Luis Manuel Mays MD CHEMISTRY ORDERABLES Final Re sult Performing Organization Address [facility] de Phone Number [facility] 1 [facility] , [place] [phone] * (ABNORMAL) HEMOGLOBIN AND HEMATOCRIT (05/27/2025 1:15 AM EDT) Hgb 8.1(L) 11.2 - 15.7 g/dL 05/27/2025 1:[address] [facility] Hct 25.2(L) 34.0 - 45.0 % 05/27/2025 1:32 AM EDT [facility] Blood VENOUS STRUCTURE / Unknown Venipuncture / Unknown 05/27/2025 1:15 AM EDT 05/27/2025 1:26 AM EDT Reuben Franz APRN HEMATOLOGY ORDERABLES Final Result Performing Organization Address [facility] de Phone Number [facility] [address] [facility] , [place] [address] * (ABNORMAL) GLUCOSE METER POC (05/26/2025 11:17 PM EDT) Glucose Meter POC 137(H) 70 - 100 mg/dL 05/26/2025 11:18 PM EDT [facility] Sample Type Capillary 05/26/2025 11:18 PM EDT [facility] Patient Status Non-Critical Patient 05/26/2025 11:18 PM EDT [facility] Blood BLOOD SPECIMEN / Unknown 05/26/2025 11:17 PM EDT 05/26/2025 11:18 PM EDT us Stephen Pickard MD POINT OF CARE TEST ORDERABLE S Final Result Performing Organization Address City/[facility]/ZIP Co de Phone Number [facility] [address] [place] [address] * CORTISOL 60 MINUTES (05/26/2025 7:36 PM EDT) Cortisol 60 Min 29.60 mcg/dL 8:26 PM EDT [facility] [employer], [facility] Blood VENOUS STRUCTURE / Unknown Venipuncture / Unknown 05/26/2025 7:36 PM EDT 05/26/2025 7:43 PM EDT Narrative [facility] [employer] - 05/26/2025 8:26 PM EDT Test performed using Homero Elecsys Cortisol II assay. Stimulated cortisol reference value not established by this laboratory. us Stephen Pickard MD CHEMISTRY ORDERABLES Final R esult Performing Organization Address [facility] de Phone Number [facility], [facility] [address] [facility] , [place] [address] * CORTISOL 30 MINUTES (05/26/2025 7:05 PM EDT) Cortisol 30 Min 25.20 mcg/dL 8:03 PM EDT [facility] [employer], [place] Blood VENOUS BLOOD / Unknown Venipuncture / Unknown 05/26/2025 7:05 PM EDT 05/26/2025 7:19 PM EDT Narrative [facility] [employer], [facility] - 05/26/2025 8:03 PM EDT Test performed using Homero Elecsys Cortisol II assay. Stimulated cortisol reference value not established by this laboratory. us Stephen Pickard MD CHEMISTRY ORDERABLES Final R esult Performing Organization Address [facility] Co de Phone Number [facility]ED [facility], [facility] [address] [facility] , [place] [address] * CORTISOL BASELINE (05/26/2025 6:49 PM EDT) Cortisol Baseline 11.20 mcg/dL 05/26/2025 7:39 PM EDT [facility] [employer], [facility] Blood VENOUS BLOOD / Unknown Venipuncture / Unknown 05/26/2025 6:49 PM EDT 05/26/2025 6:49 PM EDT Narrative [facility] - 05/26/2025 7:39 PM EDT AM: 4.82 [...] ORDERABLES Final R esult Performing Organization Address [facility] Co de Phone Number [employer] [address] [facility], [address] [place] [phone] * (ABNORMAL) HEMOGLOBIN AND HEMATOCRIT (05/26/2025 6:26 PM EDT) Hgb 7.8(L) 11.2 - 15.7 g/dL 05/26/2025 6:43 PM EDT [facility] Hct 24.3(L) 34.0 - 45.0 % 05/26/2025 6:43 PM EDT [facility] Blood VENOUS STRUCTURE / Unknown Venipuncture / Unknown 05/26/2025 6:26 PM EDT 05/26/2025 6:37 PM EDT Reuben Franz APRN HEMATOLOGY ORDERABLES Final Result Performing Organization Address [facility]/ZIP Co de Phone Number [address] [address] * (ABNORMAL) TROPONIN-T HIGH SENSITIVITY 6 HR (05/26/2025 6:26 PM EDT) yy-iZcmkqdct-E 6HR 59(H) <14 ng/L 05/26/2025 6:55 PM EDT [facility] hs-cTnT 6Hr Delta from Baseline -3 <12 ng/L 05/26/2025 6:55 PM EDT [facility] Blood VENOUS STRUCTURE / Unknown Venipuncture / Unknown 05/26/2025 6:26 PM EDT 05/26/2025 6:39 PM EDT Narrative [facility] - 05/26/2025 6:55 PM EDT Ingestion of angie doses of biotin (>5 mg/day) taken within 8 hours of drawing blood sample can interfere with this immunoassay test. us Stephen Pickard MD CHEMISTRY ORDERABLES Final R esult [address] [address] * (ABNORMAL) GLUCOSE METER POC (05/26/2025 6:15 PM EDT) [facility] Glucose Meter POC 118(H) 70 - 100 mg/dL 05/26/2025 6:17 PM EDT [facility] Sample Type Capillary 05/26/2025 6:17 PM EDT [facility] Patient Status Non-Critical Patient 05/26/2025 6:17 PM EDT [facility] Blood BLOOD SPECIMEN / Unknown 05/26/2025 6:15 PM EDT 05/26/2025 6:17 PM EDT us Stephen Pickard MD POINT OF CARE TEST ORDERABLE S Final Result [facility] 1 [place] [address] * XR CHEST AP PORTABLE (05/26/2025 5:39 [...] terminates at the lower SVC. Luis Manuel Mays MD IMG DIAGNOSTIC IMAGING ORDERA BLES Final Result * STAPHYLOCOCCUS AUREUS SCREEN (05/26/2025 4:24 PM EDT) Staph aureus PCR Not Detected Not Detected 05/26/2025 6:20 PM EDT [facility], [facility] MRSA PCR Not Detected Not Detected 05/26/2025 6:20 PM EDT [facility] [employer], [facility] Swab BOTH ANTERIOR NARES / Unknown 05/26/2025 4:24 PM EDT 05/26/2025 4:40 PM EDT Narrative [facility] [employer], [facility] - 05/26/2025 6:20 PM EDT Staphylococcus aureus target DNA sequence is not detected. This qualitative assay is intended for the detection of Staphylococcus aureus proprietary sequences for the staphylococcal protein A (spa) gene, the gene for methicillin resistance (mecA), and the staphylococcal cassette chromosome mec (SCCmec) inserted into the SA chromosomal attB site. This assay utilizes real time PCR on the [employer] GeneXpert Infinity, and its performance has been verified by the [facility]. A negative result does not rule [...] has been developed and validated by the [facility] laboratory. Detailed methodology is available upon request. Luis Manuel Mays MD MICROBIOLOGY - GENERAL ORDERA BLES Final Result Performing Organization Address [facility] Co de Phone Number [employer] [address] [place] [address], [place] [address] * RED BLOOD CELLS REQUEST (05/26/2025 4:17 PM EDT) Product Code [id number] [facility] Unit Number [id number] [facility] Crossmatch Interp Compatible [facility] Dispense Status RETURNED [facility] Blood Expiration Date [id number] [facility] ISBT 128 Type 6200 [facility] Blood Unit Volume 300 ml [facility] BA CODING SYSTEM [id number] [facility] Blood Type (Unit) A POS [facility] 05/26/2025 4:17 PM EDT 05/26/2025 4:21 PM EDT Luis Manuel Mays MD BLOOD PRODUCT ORDERS Final Re sult Performing Organization Address [facility] de Phone Number [facility] [place] [address] * IONIZED CALCIUM - INPATIENT (05/26/2025 4:17 PM EDT) Calcium Ionized 1.13 1.12 - 1.32 mmol/L 05/26/2025 4:29 PM EDT [facility] Blood VENOUS BLOOD / Unknown Venipuncture / Unknown 05/26/2025 4:17 PM EDT 05/26/2025 4:25 PM EDT us Luis Manuel Mays MD CHEMISTRY ORDERABLES Final Re sult [facility] [address] [facility], [address] [place] [phone] * BB HISTORY CHECK (05/26/2025 4:17 PM EDT) BB HISTORY CHECK (1) Previous History OK 05/26/2025 11:40 PM EDT [facility] Blood VENOUS BLOOD / Unknown Venipuncture / Unknown 05/26/2025 4:17 PM EDT 05/26/2025 4:21 PM EDT us Luis Manuel Mays MD BLOOD BANK ORDERABLES Final R esult Performing Organization Address [facility] Co de Phone Number [address] [address] * ANTIBODY SCREEN IGG (05/26/2025 4:17 PM EDT) ABSC IgG Int Negative 05/26/2025 11:40 PM EDT [facility] Blood VENOUS BLOOD / Unknown Venipuncture / Unknown 05/26/2025 4:17 PM EDT 05/26/2025 4:21 PM EDT us Luis Manuel Mays MD BLOOD BANK ORDERABLES Final R esult Performing Organization Address City/[facility]/ZIP Co de Phone Number [facility] [address] [address] * ABORH (05/26/2025 4:17 PM EDT) ABORH Int A POS 05/26/2025 11:40 PM EDT [facility] Blood VENOUS BLOOD / Unknown Venipuncture / Unknown 05/26/2025 4:17 PM EDT 05/26/2025 4:21 PM EDT us Luis Manuel Mays MD BLOOD BANK ORDERABLES Final R esult Performing Organization Address [facility]/ZIP Co de Phone Number [facility] [address] [place] [address] * POTASSIUM WHOLE BLOOD (05/26/2025 4:17 PM EDT) Pathologist [facility] K-WB 4.6 3.5 - 5.0 mEq/L 05/26/2025 4:29 PM EDT [facility]REF[facility]ED [facility] Blood VENOUS BLOOD / Unknown Venipuncture / Unknown 05/26/2025 4:17 PM EDT 05/26/2025 4:25 PM EDT Luis Manuel Mays MD CHEMISTRY ORDERABLES Final Re sult Performing Organization Address [facility] Co de Phone Number [facility] [address] , [place] [address] * FIBRINOGEN (05/26/2025 4:17 PM EDT) [facility] Fibrinogen 312 196 - 444 mg/dL 05/26/2025 4:38 PM EDT [facility] Blood VENOUS BLOOD / Unknown Venipuncture / Unknown 05/26/2025 4:17 PM EDT 05/26/2025 4:21 PM EDT Stephen Pickard MD HEMATOLOGY ORDERABLES Final Result Performing Organization Address [facility] Co de Phone Number [facility] [address] , [place] [address] * (ABNORMAL) PT / INR (05/26/2025 4:17 PM EDT) Pathologist [facility] PT 16.0(H) 10.5 - 13.6 second(s) 05/26/2025 4:38 PM EDT [facility] INR 1.38(H) 0.91 - 1.18 (ratio) 05/26/2025 4:38 PM EDT [facility] Comment: Level of Therapy Indications Target INR Range Standard Dose Treatment and prophylaxis of venous 2.0 - 3.0 thrombosis, pulmonary embolism High Dose High risk patients with mechanical 2.5 - 3.5 heart valves Blood VENOUS BLOOD / Unknown Venipuncture / Unknown 05/26/2025 4:17 PM EDT 05/26/2025 4:21 PM EDT us Stephen Pickard MD HEMATOLOGY ORDERABLES Final Result Performing Organization Address [facility] de Phone Number [facility] [employer] , [place] [address] * (ABNORMAL) HEMOGLOBIN (05/26/2025 4:17 PM EDT) Hgb 8.4(L) 11.2 - 15.7 g/dL 05/26/2025 4:32 PM EDT [facility] Blood VENOUS BLOOD / Unknown Venipuncture / Unknown 05/26/2025 4:17 PM EDT 05/26/2025 4:21 PM EDT us Stephen Pickard MD HEMATOLOGY ORDERABLES Final Result Performing Organization Address [facility] Phone Number [facility] [place] [address] * (ABNORMAL) ADRENOCORTICOTROPIC HORMONE -REF LAB (05/26/2025 3:20 PM EDT) ACTH 3.3(L) 7.2 - 63.3 pg/mL 05/28/2025 7:58 PM EDT [employer] Comment: INTERPRETIVE INFORMATION: Adrenocorticotropic Hormone Reference interval based on samples collected between 7 a.m. and 10 a.m. No reference intervals established for p.m. collections. Pediatric reference values are the same as adults (Acta Paediatr Scand 1981;70:341-345). This assay measures intact ACTH 1-39; some types of synthetic ACTH and ACTH fragments are not detected by this assay. Performed By: [facility] [address] [place] [id number] Remote Control Assembler: Gigi Cheney MD, PhD CLIA Number: [id number] Blood VENOUS BLOOD / Unknown Venipuncture / Unknown 05/26/2025 3:20 PM EDT 05/26/2025 3:23 PM EDT Stephen Pickard MD CHEMISTRY ORDERABLES Final R esult Performing Organization Address City/[facility]/ZIP Co de Phone Number [employer] [address] [place] [address] * (ABNORMAL) HEPATIC FUNCTION PANEL (05/26/2025 2:11 [...] Final Re sult [facility] [address] [place] [address] , [place] [address] * CORTISOL (05/26/2025 2:11 PM EDT) Cortisol 7.55 mcg/dL 05/26/2025 2:5 1 PM EDT [facility] Blood VENOUS BLOOD / Unknown Venipuncture / Unknown 05/26/2025 2:11 PM EDT 05/26/2025 2:15 PM EDT Narrative [facility] - 05/26/2025 2:51 PM EDT [...] ORDERABLES Final R esult Performing Organization Address City/[facility] Co de Phone Number [facility] [address] , [place] [address] * (ABNORMAL) HEMOGLOBIN (05/26/2025 2:11 PM EDT) [facility] Hgb 7.0(L) 11.2 - 15.7 g/dL 05/26/2025 2:21 PM EDT [facility] Blood VENOUS BLOOD / Unknown Venipuncture / Unknown 05/26/2025 2:11 PM EDT 05/26/2025 2:15 PM EDT us Stephen Pickard MD HEMATOLOGY ORDERABLES Final Result Performing Organization Address [facility] Co de Phone Number [facility] [address] , [place] [address] * (ABNORMAL) TROPONIN-T HIGH SENSITIVITY 2HR (05/26/2025 2:11 PM EDT) [facility] ev-oIrkjenca-R 2HR 70(H) <14 ng/L 05/26/2025 2:52 PM EDT [facility] hs-cTnT 2Hr Delta from Baseline 8(H) <4 ng/L 05/26/2025 2:52 PM EDT [facility] Blood VENOUS BLOOD / Unknown Venipuncture / Unknown 05/26/2025 2:11 PM EDT 05/26/2025 2:15 PM EDT Narrative [facility] - 05/26/2025 2:52 PM EDT Ingestion of angie doses of biotin (>5 mg/day) taken within 8 hours of drawing blood sample can interfere with this immunoassay test. us Stephen Pickard MD CHEMISTRY ORDERABLES Final R esult [facility] [address] [facility] , [address] [place] [phone] * (ABNORMAL) BLOOD GAS ARTERIAL (05/26/2025 1:01 PM EDT) pH 7.41 7.35 - 7.45 pH 05/26/2025 1:14 PM EDT [facility] pCO2 32(L) 35 - 45 mmHg 05/26/2025 1:14 PM EDT [facility] pO2 75(L) 80 - 100 mmHg 05/26/2025 1:14 PM EDT [facility] HCO3 19.6(L) 22.0 - 26.0 mmol/L 05/26/2025 1:14 PM EDT [facility] TCO2 19(L) 22 - 29 mmol/L 05/26/2025 1:14 PM EDT [facility] Base Excess -4.1(L) -2.0 - 3.0 mmol/L 05/26/2025 1:14 PM EDT [facility] O2 Sat 95.9 95.0 - 98.0 % 05/26/2025 1:14 PM EDT [facility] Inspired O2 2L 05/26/2025 1:14 PM EDT [facility] Blood ARTERIAL BLOOD / Unknown Arterial / Unknown 05/26/2025 1:01 PM EDT 05/26/2025 1:12 PM EDT us Stephen Pickard MD CHEMISTRY ORDERABLES Final R esult Performing Organization Address [facility] Co de Phone Number [employer] [address] [place] [address] , [address] [place], [place] [id number] * PROCALCITONIN (05/26/2025 1:00 PM EDT) Procalcitonin 0.08 <=0.49 ng/mL 05/26/2025 1:55 PM EDT [facility] Blood VENOUS BLOOD / Unknown Venipuncture / Unknown 05/26/2025 1:00 PM EDT 05/26/2025 1:18 PM EDT Narrative [facility] - 05/26/2025 1:55 PM EDT Procalcitonin <0.50 [...] ORDERABLES Final R esult Performing Organization Address [facility] Co de Phone Number [facility] [address] , [place] [address] * LACTIC ACID (05/26/2025 1:00 PM EDT) Lactic Acid 1.5 0.5 - 1.9 mmol/L 05/26/2025 1:30 PM EDT [facility] Blood VENOUS BLOOD / Unknown Venipuncture / Unknown 05/26/2025 1:00 PM EDT 05/26/2025 1:16 PM EDT us Stephen Pickard MD CHEMISTRY ORDERABLES Final R esult [facility] [address] [place] [id number] * (ABNORMAL) BASIC METABOLIC PANEL (05/26/2025 1:00 PM EDT) Sodium 136 136 - 145 mmol/L 05/26/2025 1:33 PM EDT [facility] Potassium 5.3(H) 3.5 - 5.0 mmol/L 05/26/2025 1:33 PM EDT [facility] Comment:Hemolysis detected b y analyzer. Hemolysis at this level may increase the potassium concentration > 0.1 mmol/L. Recommend recollection if clinically indicated. Chloride 108(H) 98 - 107 mmol/L 05/26/2025 1:33 PM EDT [facility] Total CO2 19(L) 22 - 29 mmol/L 05/26/2025 1:33 PM EDT [facility] Anion Gap 9 7 - 16 mmol/L 05/26/2025 1:33 PM EDT [facility] Calcium 7.7(L) 8.8 - 10.4 mg/dL 05/26/2025 1:33 PM EDT [facility] Glucose Lvl 129(H) 70 - 99 mg/dL 05/26/2025 1:33 PM EDT [facility] BUN 22 8 - 23 mg/dL 05/26/2025 1:33 PM EDT [facility] Creatinine 0.94 0.51 - 1.30 mg/dL 05/26/2025 1:33 PM EDT [facility] eGFR (CKD-EPIcr 2020) 59(L) >=60 mL/min/1. 73 m2 05/26/2025 1:33 PM EDT [facility] Comment:Estimated GFR was ca lculated using the CKD-EPIcr (2020) equation refit without race. The equation is recommended by the National Kidney [employer] - [place] [employer] Neph[employer] Task Force. Blood VENOUS BLOOD / Unknown Venipuncture / Unknown 05/26/2025 1:00 PM EDT 05/26/2025 1:16 PM EDT us Stephen Pickard MD CHEMISTRY ORDERABLES Final R esult [facility] [address] [place], [place] [id number] * (ABNORMAL) CBC (05/26/2025 1:00 PM EDT) [...] - 12.5 fL 05/26/2025 1:34 PM EDT [facility] Blood VENOUS BLOOD / Unknown Venipuncture / Unknown 05/26/2025 1:00 PM EDT 05/26/2025 1:16 PM EDT us Stephen Pickard MD HEMATOLOGY ORDERABLES Final Result Performing Organization Address City/[facility]/ZIP Co de Phone Number [facility] [address] [facility], [place] [address] * (ABNORMAL) TROPONIN-T HIGH SENSITIVITY BASELINE W/ REFLEX (05/26/2025 1:00 PM EDT) uu-wGpmmogga-K 62(H) <14 ng/L 05/26/2025 1:37 PM EDT [facility] Blood VENOUS BLOOD / Unknown Venipuncture / Unknown 05/26/2025 1:00 PM EDT 05/26/2025 1:16 PM EDT Narrative [facility] - 05/26/2025 1:37 PM EDT Ingestion of angie doses of biotin (>5 mg/day) taken within 8 hours of drawing blood sample can interfere with this immunoassay test. us Stephen Pickard MD CHEMISTRY ORDERABLES Final R esult Performing Organization Address City/[facility] Co de Phone Number [facility] [address] [place] [address] * (ABNORMAL) GLUCOSE METER POC (05/26/2025 12:37 PM EDT) Glucose Meter POC 129(H) 70 - 100 mg/dL 05/26/2025 12:38 PM EDT [facility] Sample Type Capillary 05/26/2025 12:38 PM EDT [facility] Patient Status Non-Critical Patient 05/26/2025 12:38 PM EDT [facility] Blood BLOOD SPECIMEN / Unknown 05/26/2025 12:37 PM EDT 05/26/2025 12:38 PM EDT us Stephen Pickard MD POINT OF CARE TEST ORDERABLE S Final Result [facility] [address] [place] [address] * EK EKG 12 LEAD (05/26/2025 12:27 PM EDT) Anatomical Region Laterality Modality Electrocardiogra phy 05/26/2025 12:4 2 PM EDT Impressions 05/27/2025 7:[address] [facility] Test Date: 2025-05-26 Pat Name: SKYLER WILMINGTON Department: DEPID Room: [facility] Gender: Female R[place]: Sekou : 1940 Requested By: STEPHEN Earl Order Number: [id number] Reading MD: Shayy Vega DO Measurements Intervals [place] Rate: 78 P: 0 CT: 0 QRS: 16 QRSD: 88 T: 27 QT: 364 QTc: 416 Interpretive Statements ATRIAL FIBRILLATION ABERRANT COMPLEXES VERSUS PVC'S LOW QRS VOLTAGE IN PRECORDIAL LEADS POSSIBLE ANTERIOR MYOCARDIAL INFARCTION, PROBABLY OLD ABNORMAL RHYTHM ECG Electronically Signed On 05-27-2025 07:50:53 EDT by Shayy Vega DO Narrative Procedure Note Shayy Vega DO - 05/27/[address] [facility] Test Date: 2025-05-26 Pat Name: [facility] Department: DEPID Room: 3417 Gender: Female R[place]man: Sekou : 1940 Requested By: STEPHEN Earl Order Number: [id number] Reading MD: Shayy Vega DO Measurements Intervals [place] Rate: 78 P: 0 CT: 0 QRS: 16 QRSD: 88 T: 27 [...] (NO STAIN) 05/31/2025 1:00 PM EDT [facility] Blood VENOUS BLOOD / Unknown Venipuncture / Unknown 05/26/2025 11:58 AM EDT 05/26/2025 12:03 PM EDT us Stephen Pickard MD MICROBIOLOGY - GENERAL ORDER CELESTE Final Result Performing Organization Address City/[facility]/ZIP Co de Phone Number PREFERRED [facility] [address] [place] [address] * BLOOD CULTURE (NO STAIN) (05/26/2025 11:58 AM EDT) Culture Result No Growth at 120 hours. BLOOD CULTURE (NO STAIN) 05/31/2025 1:00 PM EDT PREFERRED [facility], [facility] Blood VENOUS BLOOD / Unknown Venipuncture / Unknown 05/26/2025 11:58 AM EDT 05/26/2025 12:02 PM EDT us Stephen Pickard MD MICROBIOLOGY - GENERAL ORDER CELESTE Final Result Performing Organization Address City/[facility]/ZIP Co de Phone Number PREFERRED [facility] [facility] , [address] [place] [id number] * (ABNORMAL) URINE CULTURE (NO STAIN) (05/26/2025 11:16 AM EDT) Culture Positive Growth(A) 05/27/2025 1:42 PM EDT [facility] [place] Culture 3,000 CFU/mL Proteus mirabilis SUSCEPTIB ILITY RESULT 05/27/2025 1:42 PM EDT [employer], [place] Comment:refer to susceptibil ity on urine culture collected - 05/23/2025 1531 Urine URINARY BLADDER STRUCTURE / Unknown 05/26/2025 11:16 AM EDT 05/26/2025 11:38 AM EDT us Stephen Pickard MD MICROBIOLOGY - GENERAL ORDER CELESTE Final Result [facility] [address] [facility], [place] [address] * EXTRA HUITRON URINE CX (05/26/2025 11:16 AM EDT) Urine URINARY BLADDER STRUCTURE / Unknown 05/26/2025 11:16 AM EDT 05/26/2025 11:32 AM EDT Stephen Pickard MD MICROBIOLOGY - GENERAL ORDER CELESTE Final Result Performing Organization Address City/[facility]/ZIP Co de Phone Number [address] [address] * (ABNORMAL) URINALYSIS REFLEX (05/26/2025 11:16 AM [...] 05/26/2025 11:38 AM EDT [facility] Comment:Reference range helga d for random specimens only. UA WBC 5(H) 0 - 4 /HPF 05/26/2025 11:38 AM EDT [facility] UA RBC 1 0 - 3 /HPF 05/26/2025 11:38 AM EDT [facility] UA Squam Epi 2+ /LPF 05/26/2025 11:38 AM EDT [facility] UA Mucus Trace /LPF 05/26/2025 11:38 AM EDT [facility] UA Bacteria Trace(A) Negative /HPF 05/26/2025 11:38 AM EDT [facility] Urine URINARY BLADDER STRUCTURE / Unknown 05/26/2025 11:16 AM EDT 05/26/2025 11:32 AM EDT us Stephen Pickard MD URINE ORDERABLES Final Resul t [facility] [address] [facility] , [place] [address] * XR CHEST AP PORTABLE (05/26/2025 11:04 [...] - TELEMETRY (05/26/2025 7:53 AM EDT) Pathologist [facility] ECG INTERPRET Sinus Arrythmia [facility] 05/26/2025 7:53 AM EDT Narrative [facility] - 05/26/2025 10:34 AM EDT ROUTINE -HB QRS 0.11 See Clinical Report link for waveform capture us Unknown Provider POINT OF CARE CARDIOLOGY Final Result [facility] 1 [place] [address] * (ABNORMAL) RENAL FUNCTION PANEL [...] - 10.4 mg/dL 05/26/2025 7:27 AM EDT [facility] Glucose Lvl 120(H) 70 - 99 mg/dL 05/26/2025 7:27 AM EDT [facility] BUN 20 8 - 23 mg/dL 05/26/2025 7:27 AM EDT [facility] Creatinine 0.94 0.51 - 1.30 mg/dL 05/26/2025 7:27 AM EDT [facility] Albumin 3.1(L) 3.2 - 4.6 gm/dL 05/26/2025 7:27 AM EDT [facility] Phosphorus 1.9(L) 2.5 - 4.5 mg/dL 05/26/2025 7:27 AM EDT [facility] eGFR (CKD-EPIcr 2020) 59(L) >=60 mL/min/1.7 3 m2 05/26/2025 7:27 AM EDT [facility] Comment:Estimated GFR was ca lculated using the CKD-EPIcr (2020) equation refit without race. The equation is recommended by the National Kidney Foundation - [place] [employer] of Nephrology Task Force. Blood VENOUS BLOOD / Unknown Venipuncture / Unknown 05/26/2025 6:15 AM EDT 05/26/2025 6:53 AM EDT us Stephen [place]ard MD CHEMISTRY ORDERABLES Final R esult [facility] [address] [facility] , [place] [address] * (ABNORMAL) CBC (05/26/2025 6:15 AM EDT) WBC 5.6 3.7 - 10.3 x10(3)/mcL 05/26/2025 7:05 AM EDT [facility] RBC 2.39(L) 3.90 - 5.20 x10(6)/mcL 05/26/2025 7:05 AM EDT [facility] Hgb 8.3(L) 11.2 - 15.7 g/dL 05/26/2025 7:05 AM EDT [facility] Hct 25.7(L) 34.0 - 45.0 % 05/26/2025 7:05 AM EDT [facility] MCV 107.5(H) 80.0 - 100.0 fL 05/26/2025 7:05 AM EDT [facility] MCH 34.7(H) 26.0 - 34.0 pg 05/26/2025 7:05 AM EDT [facility] MCHC 32.3 30.7 - 35.5 g/dL 05/26/2025 7:05 AM EDT [facility] RDW 21.1(H) <=14.9 % 05/26/2025 7:05 AM EDT [facility] Platelet 71(L) 155 - 369 x10(3)/mcL 05/26/2025 7:05 AM EDT [facility] MPV 12.8(H) 8.8 - 12.5 fL 05/26/2025 7:05 AM EDT [facility] Blood VENOUS BLOOD / Unknown Venipuncture / Unknown 05/26/2025 6:15 AM EDT 05/26/2025 6:53 AM EDT us Stephen [place]ard MD HEMATOLOGY ORDERABLES Final Result [facility], [address], [address] [place] [id number] * ECG AND WAVEFORMS - TELEMETRY (05/25/2025 7:00 PM EDT) [facility] ECG INTERPRET Atrial Fib [facility] 05/25/2025 7:00 PM EDT Narrative [facility] - 05/25/2025 8:57 PM EDT ROUTINE/GGG QRS 0.05 See Clinical Report link for waveform capture us Unknown Provider POINT OF CARE CARDIOLOGY Final Result [facility] 1 [place] [address] * ECG AND WAVEFORMS - TELEMETRY (05/25/2025 7:57 AM EDT) Pathologist [facility] ECG INTERPRET Sinus Arrythmia [facility] 05/25/2025 7:57 AM EDT Narrative [facility] - 05/25/2025 9:16 AM EDT ROUTINE -HB QRS 0.08 See Clinical Report link for waveform capture us Unknown Provider POINT OF CARE CARDIOLOGY Final Result [facility] 1 [place] [address] * (ABNORMAL) CBC (05/25/2025 6:50 AM EDT) [facility] WBC 6.0 3.7 - 10.3 x10(3)/mcL 05/25/2025 [...] 05/25/2025 7:55 AM EDT [facility] Blood VENOUS BLOOD / Unknown Venipuncture / Unknown 05/25/2025 6:50 AM EDT 05/25/2025 7:10 AM EDT us Lawrence Wolf MD HEMATOLOGY ORDERABLES Final Result [facility] 1 [facility] , [place] [address] * (ABNORMAL) BASIC METABOLIC PANEL (05/25/2025 6:50 AM EDT) Sodium 137 136 - 145 mmol/L 05/25/2025 7:47 AM EDT [facility] Potassium 4.3 3.5 - 5.0 mmol/L 05/25/2025 7:47 AM EDT [facility] Chloride 111(H) 98 - 107 mmol/L 05/25/2025 7:47 AM EDT [facility] Total CO2 19(L) 22 - 29 mmol/L 05/25/2025 7:47 AM EDT [facility] Anion Gap 7 7 - [...] recommended by the National Kidney Foundation - [place] [employer] of Nephrology Task Force. Blood VENOUS BLOOD / Unknown Venipuncture / Unknown 05/25/2025 6:50 AM EDT 05/25/2025 7:10 AM EDT us Stephen [place]ard MD CHEMISTRY ORDERABLES Final R esult Performing Organization Address City/[facility]/ZIP Co de Phone Number [facility] [address] [facility], [place] [address] * ECG AND WAVEFORMS - TELEMETRY (05/24/2025 7:00 PM EDT) Pathologist [facility] ECG INTERPRET Atrial Fib [facility] 05/24/2025 7:00 PM EDT Narrative [facility] - 05/24/2025 7:43 PM EDT ROUTINE/MS QRS 0.10 See Clinical Report link for waveform capture us Unknown Provider POINT OF CARE CARDIOLOGY Final Result Performing Organization Address [facility] Co de Phone Number [facility] 1 [place] [address] * (ABNORMAL) CBC (05/24/2025 1:55 PM EDT) Pathologist [facility] WBC 3.8 3.7 - 10.3 x10(3)/mcL 05/24/2025 [...] g/dL 05/24/2025 2:11 PM EDT [facility] RDW 21.9(H) <=14.9 % 05/24/2025 2:11 PM EDT [facility] Platelet 64(L) 155 - 369 x10(3)/mcL 05/24/2025 2:11 PM EDT [facility] MPV 12.1 8.8 - 12.5 fL 05/24/2025 2:11 PM EDT [facility] Blood VENOUS BLOOD / Unknown Venipuncture / Unknown 05/24/2025 1:55 PM EDT 05/24/2025 2:01 PM EDT us Lawrence Wolf MD HEMATOLOGY ORDERABLES Final Result Performing Organization Address City/[facility]/ZIP Co de Phone Number [facility], [facility] [address] [facility], [place] [address] * (ABNORMAL) GLUCOSE METER POC (05/24/2025 11:39 AM EDT) [facility] Glucose Meter POC 144(H) 70 - 100 mg/dL 05/24/2025 11:41 AM EDT [facility] Sample Type Capillary 05/24/2025 11:41 AM EDT [facility] Patient Status Non-Critical Patient 05/24/2025 11:41 AM EDT [facility] Blood BLOOD SPECIMEN / Unknown 05/24/2025 11:39 AM EDT 05/24/2025 11:41 AM EDT Stephen [place]ard MD POINT OF CARE TEST ORDERABLE S Final Result [facility] [address] [place] [address] * TRANSFUSE RED BLOOD CELLS (05/24/2025 [...] AM EDT) CASE REPORT Surgical Pathology Case: [id number] Authorizing Provider: Lawrence Wolf MD Collected: 05/24/2025 0841 Ordering Location: [facility] SURGERY Received: 05/24/2025 1101 Pathologist: Addie Barakat MD Specimen: Leg, Left, Left Leg and knee 05/29/2025 3:42 PM EDT [facility] FINAL DIAGNOSIS Left leg and knee, [id number] amputation: - Ulcer and soft tissue necrosis at previous amputation site. - Atherosclerosis. - Focal areas of necrosis and acute inflammation consistent with acute osteomyelitis. - Skin and soft tissue margins are viable. - Bone margin is negative for acute osteomyelitis. 05/29/2025 3:42 PM EDT [facility] at 1542 EDT GROSS DESCRIPTION [...] soft tissue margins; Green - femoral vessels; Silver Star - anterior tibial vessels; Black - posterior [...] diffusely calcified and up to 95% stenotic. Fitter Tacker sections are submitted as follows: A1: Bone marrow from margin, in a biopsy bag and following Decal Stat A2: Skin and soft tissue margin, perpendicularly sectioned A3: Lesion to underlying bone, following Decal Stat A4: Mid cross sections of vessels with stenotic and calcified areas, following Decal Stat Kesha Cerda MS, [place] ([facility]) 05/27/2025 05/29/2025 3:42 PM EDT [facility] MICROSCOPIC DESCRIPTION The microscopic examination may have been rendered in whole, or in part, by analyzing high-resolution digital images (whole slide images) on the [employer] Digital Pathology platform validated at [facility]. 05/29/2025 3:42 PM EDT [facility] EMBEDDED IMAGES 05/29/2025 3:42 PM EDT [facility] Tissue STRUCTURE OF LEFT LOWER LEG / Unknown 05/24/2025 8:41 AM EDT 05/24/2025 11:01 AM EDT us Lawrence Wolf MD PATHOLOGY ORDERABLES Final Result [address] [address] [place] [id number] * US ANES GUIDANCE FOR NERVE BLOCK (05/24/2025 7:18 AM EDT) Narrative [employer], Frida - 05/24/2025 7:18 AM EDT Ultrasound guided nerve block performed by Anesthesiologist The study image(s) are for reference only and will not be interpreted by a Radiologist. Refer to the Anesthesia procedure note for image description and procedure details. us Rosanna Gallagher MD IMG US ORDERABLES Final Re sult * ECG AND WAVEFORMS - TELEMETRY (05/24/2025 7:05 AM EDT) ECG INTERPRET Atrial Fib [facility] 05/24/2025 7:05 AM EDT Narrative [facility] - 05/24/2025 7:52 AM EDT PVCS-ROUTINE/PB QRS 0.09 See Clinical Report link for waveform capture us Unknown Provider POINT OF CARE CARDIOLOGY Final Result Performing Organization Address [facility] de Phone Number [facility] [address] [place] [address] * (ABNORMAL) GLUCOSE METER POC (05/24/2025 6:32 AM EDT) Glucose Meter POC 104(H) 70 - 100 mg/dL 05/24/2025 6:34 AM EDT [facility] Sample Type Capillary 05/24/2025 6:34 AM EDT [facility] Patient Status Non-Critical Patient 05/24/2025 6:34 AM EDT [facility] Blood BLOOD SPECIMEN / Unknown 05/24/2025 6:32 AM EDT 05/24/2025 6:34 AM EDT Stephen [place]ard MD POINT OF CARE TEST ORDERABLE S Final Result Performing Organization Address [facility] de Phone Number [facility] 1 [place] [address] * ECG AND WAVEFORMS - TELEMETRY (05/23/2025 7:24 PM EDT) ECG INTERPRET Atrial Fib [facility] 05/23/2025 7:24 PM EDT Narrative [facility] - 05/23/2025 7:31 PM EDT (AM) ROUTINE QRS 0.12 See Clinical Report link for waveform capture us Unknown Provider POINT OF CARE CARDIOLOGY Final Result Performing Organization Address [facility] Co de Phone Number [facility] 1 [place], [place] [id number] * (ABNORMAL) URINE CULTURE (NO STAIN) (05/23/2025 3:31 PM EDT) Culture Positive Growth(A) 05/26/2025 9:43 AM EDT [facility] >100,000 CFU/mL Proteus mirabilis SUSCEPTIB ILITY RESULT 05/26/2025 9:43 AM EDT [facility] [place] Comment: Confirmed positive for ESBL (extended spectrum Beta lactamase) production. If isolate susceptible and patient is clinically stable, sulfamethoxazole-trimethoprim is the drug of choice. Fluoroquinolones may also be considered. Nitrofurantoin may be associated with increased risk of treatment failure. Culture 50,000 CFU/mL Escherichia coli SUSCEPTIB ILITY RESULT 05/26/2025 9:43 AM EDT [facility] Urine STRUCTURE OF URINARY TRACT PROPER / [...] ORDER CELESTE Final Result Performing Organization Address [facility] de Phone Number [facility], [address], [place] [address] * EXTRA HUITRON URINE CX (05/23/2025 3:31 PM EDT) Urine STRUCTURE OF URINARY TRACT PROPER / Unknown 05/23/2025 3:31 PM EDT 05/23/2025 3:36 PM EDT us Stephen [place]ard MD MICROBIOLOGY - GENERAL ORDER CELESTE Final Result Performing Organization Address [facility] [place] [address] * (ABNORMAL) URINALYSIS REFLEX (05/23/2025 3:31 PM EDT) UA Color Yellow 05/23/2025 3:41 PM EDT [facility] UA Appear Turbid(A) Clear 05/23/2025 3:41 PM EDT [facility] UA Glucose Negative Negative mg/dL 05/23/2025 3:41 PM EDT [facility] UA Ketones Negative Negative mg/dL 05/23/2025 3:41 PM EDT [facility] UA Blood 2+ (0.2 - 0.5 mg/dL)(A) Negative 05/23/2025 3:41 PM EDT [facility] UA pH 6.5 5.0 - 8.0 pH 05/23/2025 3:41 PM EDT [facility] UA Protein 2+ (100-200 mg/dL)(A) Negative mg/dL 05/23/2025 3:41 PM EDT [facility] UA Urobilinogen Normal <=1 mg/dL 3:41 PM EDT [facility] UA Bili Negative Negative 05/23/2025 3:41 PM EDT [facility] UA Nitrite Positive(A) Negative 05/23/2025 3:41 PM EDT [facility] UA Leuk Est 4+ (500 Ion/mcl)(A) Negative 05/23/2025 3:41 PM EDT [facility] UA Spec Grav 1.018 1.001 - 1.035 no units 05/23/2025 3:41 PM EDT [facility] Comment:Reference range helga d for random specimens only. UA WBC >182(H) 0 - 4 /HPF 05/23/2025 3:41 PM EDT [facility] UA RBC 22(H) 0 - 3 /HPF 05/23/2025 3:41 PM EDT [facility] UA Mucus Trace /LPF 05/23/2025 3:41 PM EDT [facility] UA Bacteria Trace(A) Negative /HPF 05/23/2025 3:41 PM EDT [facility] Urine STRUCTURE OF URINARY TRACT PROPER / Unknown 05/23/2025 3:31 PM EDT 05/23/2025 3:36 PM EDT us Stephen [place]ard MD URINE ORDERABLES Final Resul t [facility] [address] [facility] , [place] [address] * RED BLOOD CELLS REQUEST (05/23/2025 10:33 AM EDT) Product Code [id number] [facility] Unit Number [id number] [facility] Crossmatch Interp Compatible [facility] Dispense Status RETURNED [facility] Blood Expiration Date [id number] [facility] ISBT 128 Type 6200 [facility] Blood Unit Volume 300 ml [facility] BA CODING SYSTEM [id number] [facility] Blood Type (Unit) A POS [facility] Blood 05/23/2025 10:3 3 AM EDT 05/23/2025 10:37 AM EDT us Luis Manuel Mays MD BLOOD PRODUCT ORDERS Final Re sult Performing Organization Address [facility] Co de Phone Number [facility] [place] [address] * RED BLOOD CELLS REQUEST (05/23/2025 10:33 AM EDT) Product Code [id number] [facility] BLOOD [facility] Unit Number [id number] [facility] Crossmatch Interp Compatible [facility] Dispense Status TRANSFUSED [facility] Blood Expiration Date [id number] [facility] ISBT 128 Type 6200 [facility]LOOD [facility] Blood Unit Volume 300 ml [facility] BA CODING SYSTEM [id number] [facility] Blood Type (Unit) A POS [facility] Blood 05/23/2025 10:3 3 AM EDT 05/23/2025 10:37 AM EDT us Lawrence Wolf MD BLOOD PRODUCT ORDERS Final Result Performing Organization Address [facility] Co de Phone Number [facility] [place] [address] * RED BLOOD CELLS REQUEST (05/23/2025 10:33 AM EDT) Product Code [id number] [facility] BLOOD [facility] Unit Number [id number] [facility] Crossmatch Interp Compatible [facility] Dispense Status TRANSFUSED [facility] Blood Expiration Date [id number] [facility] ISBT 128 Type 6200 [facility] BLOOD [facility]ANK Blood Unit Volume 300 ml [facility] BA CODING SYSTEM [id number] [facility] Blood Type (Unit) A POS [facility] Blood 05/23/2025 10:3 3 AM EDT 05/23/2025 10:37 AM EDT Lawrence Wolf MD BLOOD PRODUCT ORDERS Final Result Performing Organization Address [facility]/ZIP Co de Phone Number [facility] [address] [address] * BB HISTORY CHECK (05/23/2025 10:33 AM EDT) BB HISTORY CHECK (1) Previous History OK 05/23/2025 10:52 AM EDT [facility] Blood VENOUS BLOOD / Unknown Venipuncture / Unknown 05/23/2025 10:33 AM EDT 05/23/2025 10:37 AM EDT Yanirasid Sol LIGHTING EQUIPMENT OPERATOR BLOOD BANK ORDERABLES Final Re sult Performing Organization Address [facility]/ZIP Co de Phone Number [facility] [address] [address] * ANTIBODY SCREEN IGG (05/23/2025 10:33 AM EDT) Pathologist [facility] ABSC IgG Int Negative 05/23/2025 11:27 AM EDT [facility] Blood VENOUS BLOOD / Unknown Venipuncture / Unknown 05/23/2025 10:33 AM EDT 05/23/2025 10:37 AM EDT Deannpaigesid Sol LIGHTING EQUIPMENT OPERATOR BLOOD BANK ORDERABLES Final Re sult Performing Organization Address City/[facility]/ZIP Co de Phone Number [facility] [address] [address] * ABORH (05/23/2025 10:33 AM EDT) Pathologist [facility] ABORH Int A POS 05/23/2025 10:59 AM EDT [facility] Blood VENOUS BLOOD / Unknown Venipuncture / Unknown 05/23/2025 10:33 AM EDT 05/23/2025 10:37 AM EDT us Sheryl Horton APRN BLOOD BANK ORDERABLES Final Re sult [facility] [address] [place] [address] * ECG AND WAVEFORMS - TELEMETRY (05/23/2025 7:30 AM EDT) Pathologist [facility] ECG INTERPRET Atrial Fib [facility] 05/23/2025 7:30 AM EDT Narrative [facility] - 05/23/2025 7:52 AM EDT (DT)ROUTINE QRS 0.09 See Clinical Report link for waveform capture us Unknown Provider POINT OF CARE CARDIOLOGY Final Result Performing Organization Address [facility]/ZIP Co de Phone Number [facility] [address] [place] [address] * (ABNORMAL) CBC (05/23/2025 7:03 AM EDT) WBC 2.9(L) 3.7 - 10.3 x10(3)/mcL 05/23/2025 [...] % 05/23/2025 7:37 AM EDT [facility] Platelet 79(L) 155 - 369 x10(3)/mcL 05/23/2025 7:37 AM EDT [facility], [facility] MPV 12.3 8.8 - 12.5 fL 05/23/2025 7:37 AM EDT [facility] Blood VENOUS BLOOD / Unknown Venipuncture / Unknown 05/23/2025 7:03 AM EDT 05/23/2025 7:27 AM EDT us Carlos Manuel Landaverde II, MD HEMATOLOGY ORDERABLES Fin al Result Performing Organization Address City/[facility] Co de Phone Number [facility] [address] [facility], [place] [address] * ECG AND WAVEFORMS - TELEMETRY (05/22/2025 7:59 PM EDT) ECG INTERPRET Atrial Flutter [facility] Comment:with PVCs 05/22/2025 7:59 PM EDT Narrative [facility] - 05/22/2025 8:15 PM EDT PVC, (AM) ROUTINE QRS 0.10 See Clinical Report link for waveform capture us Unknown Provider POINT OF CARE CARDIOLOGY Final Result Performing Organization Address [facility] Co de Phone Number [facility] [address] [place] [address] * ECG AND WAVEFORMS - TELEMETRY (05/22/2025 7:31 AM EDT) ECG INTERPRET Atrial Fib [facility] 05/22/2025 7:31 AM EDT Narrative [facility] - 05/22/2025 9:30 AM EDT (DT)ROUTINE QRS 0.08 See Clinical Report link for waveform capture us Unknown Provider POINT OF CARE CARDIOLOGY Final Result Performing Organization Address [facility] Co de Phone Number [facility] [address] [place] [address] * FIBRINOGEN (05/22/2025 6:42 AM EDT) Fibrinogen 241 196 - 444 mg/dL 05/22/2025 7:27 AM EDT [facility] Blood VENOUS BLOOD / Unknown Venipuncture / Unknown 05/22/2025 6:42 AM EDT 05/22/2025 6:58 AM EDT Stephen Pickard MD HEMATOLOGY ORDERABLES Final Result [facility]ED [facility] 1 [facility] , [place] [address] * (ABNORMAL) PT / INR (05/22/2025 6:42 AM EDT) PT 15.7(H) 10.5 - 13.6 second(s) 05/22/2025 7:27 AM EDT [facility] INR 1.36(H) 0.91 - 1.18 (ratio) 05/22/2025 7:27 AM EDT [facility] Comment: Level of Therapy Indications Target INR Range Standard Dose Treatment and prophylaxis of venous 2.0 - 3.0 thrombosis, pulmonary embolism High Dose High risk patients with mechanical 2.5 - 3.5 heart valves Blood VENOUS BLOOD / Unknown Venipuncture / Unknown 05/22/2025 6:42 AM EDT 05/22/2025 6:58 AM EDT Stephen Pickard MD HEMATOLOGY ORDERABLES Final Result [facility] 1 [facility] , [place] [address] * MAGNESIUM LEVEL (05/22/2025 6:42 AM EDT) Magnesium 1.9 1.6 - 2.4 mg/dL 05/22/2025 7:32 AM EDT [facility] Blood VENOUS BLOOD / Unknown Venipuncture / Unknown 05/22/2025 6:42 AM EDT 05/22/2025 6:58 AM EDT Carlos Manuel Landaverde II, MD CHEMISTRY ORDERABLES Mita mills Result [facility] [address] [facility] , [place] [address] * (ABNORMAL) CBC (05/22/2025 6:42 AM EDT) [...] al Result [facility] [address] [facility] , [place] [phone] * (ABNORMAL) BASIC METABOLIC PANEL (05/22/2025 6:42 AM EDT) Sodium 138 136 - 145 mmol/L 05/22/2025 7:32 AM EDT [facility] Potassium 4.1 3.5 - 5.0 mmol/L 05/22/2025 7:32 AM EDT [facility] Chloride 108(H) 98 - 107 mmol/L 05/22/2025 7:32 AM EDT [facility] Total [...] recommended by the National Kidney Foundation - [place] [employer] of Nephrology Task Force. Blood VENOUS BLOOD / Unknown Venipuncture / Unknown 05/22/2025 6:42 AM EDT 05/22/2025 6:58 AM EDT Carlos Manuel Landaverde II, MD CHEMISTRY ORDERABLES Mita l Result [facility] [address] [facility], [place] [address] * ECG AND WAVEFORMS - TELEMETRY (05/21/2025 7:40 PM EDT) [facility] ECG INTERPRET Atrial Fib [facility] 05/21/2025 7:40 PM EDT Narrative [facility] - 05/21/2025 7:46 PM EDT w/PVCs ROUTINE/AJ QRS 0.10 QT 0.36 See Clinical Report link for waveform capture Unknown Provider POINT OF CARE CARDIOLOGY Final Result Performing Organization Address [facility]/ZIP Co de Phone Number [facility] 1 [place] [address] * (ABNORMAL) CBC WITH DIFF (05/21/2025 7:18 AM EDT) [facility] WBC 3.0(L) 3.7 - 10.3 x10(3)/mcL 05/21/2025 [...] 05/21/2025 1:43 PM EDT [facility] Platelet 77(L) 155 - 369 x10(3)/[facility] 05/21/2025 1:43 PM EDT [facility] MPV 12.7(H) 8.8 - 12.5 fL 05/21/2025 1:43 PM EDT [facility] Neut Percent 53.3 % 05/21/2025 1:43 PM EDT [facility] Comment:Neutrophils equals s egs plus bands Imm Gran% 0.3 % 05/21/2025 1:43 PM EDT [facility] Comment:Automated count of m etamyelocytes, myelocytes and promyelocytes. Lymph Percent 37.2 % 05/21/2025 1:43 PM EDT [facility] Moca Percent 8.9 % 05/21/2025 1:43 PM EDT [facility] Eos Percent 0.0 % 05/21/2025 1:43 PM EDT [facility] Baso Percent 0.3 % 05/21/2025 1:43 PM EDT [facility] Neut # 1.6 1.6 - 6.1 x10(3)/mcL 05/21/2025 1:43 PM EDT [facility] Comment:Neutrophils equals s egs plus bands IMMGRAN# 0.0 0.0 - 0.1 x10(3)/mcL 05/21/2025 1:43 PM EDT [facility] Comment:Automated count of m etamyelocytes, myelocytes and promyelocytes. An absolute IG <0.1 is reported as 0.0. Lymph # 1.1(L) 1.2 - 3.9 x10(3)/mcL 05/21/2025 1:43 PM EDT [facility] Moca # 0.3 0.3 - 0.9 x10(3)/[facility] 05/21/2025 1:43 PM EDT [facility] Eos# 0.0 0.0 - 0.5 x10(3)/mcL 05/21/2025 1:43 PM EDT [facility] Baso # 0.0 0.0 - 0.1 x10(3)/[facility] 05/21/2025 1:43 PM EDT [facility] Blood VENOUS BLOOD / Unknown Venipuncture / Unknown 05/21/2025 7:18 AM EDT 05/21/2025 7:22 AM EDT us Stephen Pickard MD HEMATOLOGY ORDERABLES Final Result Performing Organization Address [facility] Co de Phone Number [employer] [address] [facility], [place] [address] * PERIPHERAL SMEAR/PATH REVIEW (05/21/2025 7:18 AM [...] Sujata Benitez MD 05/22/2025 5:33 PM EDT [facility] Blood VENOUS BLOOD / Unknown Venipuncture / Unknown 05/21/2025 7:18 AM EDT 05/21/2025 7:22 AM EDT us Stephen Pickard MD HEMATOLOGY ORDERABLES Final Result Performing Organization Address [facility] Co de Phone Number [facility] 1 [place] [address] * (ABNORMAL) IRON+TIBC (05/21/2025 7:18 AM EDT) Iron 41 30 - 160 mcg/dL 05/21/2025 7:57 AM EDT [facility] Transferrin 182(L) 200 - 360 mg/dL 05/21/2025 7:57 AM EDT [facility] Transferrin Saturation 16(L) 20 - 50 % 05/21/2025 7:57 AM EDT [facility] TIBC 255 250 - 400 mcg/dL 05/21/2025 7:57 AM EDT [facility] Blood VENOUS BLOOD / Unknown Venipuncture / Unknown 05/21/2025 7:18 AM EDT 05/21/2025 7:22 AM EDT Carlos Manuel Landaverde II, MD CHEMISTRY ORDERABLES Mita l Result Performing Organization Address [facility] Co de Phone Number [address] , [place] [address] * VITAMIN B12/ FOLIC ACID (05/21/2025 7:18 AM EDT) Vitamin B12 806 232 - 1,245 pg/mL 05/21/2025 8:20 AM EDT [facility] Folate >16.00 >=4.80 ng/mL 05/21/2025 8:20 AM EDT [facility] Blood VENOUS BLOOD / Unknown Venipuncture / Unknown 05/21/2025 7:18 AM EDT 05/21/2025 7:22 AM EDT Narrative [facility] - 05/21/2025 8:20 AM EDT Ingestion of angie doses of biotin (>5 mg/day) taken within 8 hours of drawing blood sample can interfere with this immunoassay test. Carlos Manuel Landaverde II, MD CHEMISTRY ORDERABLES Mita l Result Performing Organization Address [facility] Co de Phone Number [address] [place] [address] * MAGNESIUM LEVEL (05/21/2025 7:18 AM EDT) Magnesium 1.8 1.6 - 2.4 mg/dL 05/21/2025 7:57 AM EDT [facility] Blood VENOUS BLOOD / Unknown Venipuncture / Unknown 05/21/2025 7:18 AM EDT 05/21/2025 7:22 AM EDT Carlos Manuel Landaverde II, MD CHEMISTRY ORDERABLES Mita mills Result [facility] [address] [facility] , [place] [address] * (ABNORMAL) CBC (05/21/2025 7:18 AM EDT) [facility] WBC 3.0(L) 3.7 - 10.3 x10(3)/mcL 05/21/2025 [...] ORDERABLES Fin al Result [facility] [address] [facility] , [address] [place] [id number] * (ABNORMAL) BASIC METABOLIC PANEL (05/21/2025 7:18 AM EDT) Sodium 138 136 - 145 mmol/L 05/21/2025 7:57 AM EDT [facility] Potassium 4.1 3.5 - 5.0 mmol/L 05/21/2025 7:57 AM EDT [facility] Chloride 107 98 - 107 mmol/L 05/21/2025 7:57 AM EDT [facility] Total CO2 20(L) 22 - 29 mmol/L 05/21/2025 7:57 AM EDT [facility] Anion Gap 11 7 - [...] recommended by the National Kidney Foundation - [place] [employer] of Nephrology Task Force. Blood VENOUS BLOOD / Unknown Venipuncture / Unknown 05/21/2025 7:18 AM EDT 05/21/2025 7:22 AM EDT us Carlos Manuel Landaverde II, MD CHEMISTRY ORDERABLES Mita l Result Performing Organization Address City/[facility]/ZIP Co de Phone Number [facility] [address] [facility], [place] [address] * ECG AND WAVEFORMS - TELEMETRY (05/21/2025 7:00 AM EDT) ECG INTERPRET Atrial Fib [facility] 05/21/2025 7:00 AM EDT Narrative [facility] - 05/21/2025 8:43 AM EDT ROUTINE SDP QRS 0.08 QT 0.38 See Clinical Report link for waveform capture us Unknown Provider POINT OF CARE CARDIOLOGY Final Result Performing Organization Address [facility] Co de Phone Number [facility] 1 [place] [address] * ECG AND WAVEFORMS - TELEMETRY (05/20/2025 7:38 PM EDT) ECG INTERPRET Atrial Fib [facility] 05/20/2025 7:38 PM EDT Narrative [facility] - 05/20/2025 7:43 PM EDT w/PVCs ROUTINE/AJ CT 0.09 QT 0.35 See Clinical Report link for waveform capture us Unknown Provider POINT OF CARE CARDIOLOGY Final Result Performing Organization Address [facility] Co de Phone Number [facility] 1 [place] [address] * ECG AND WAVEFORMS - TELEMETRY (05/20/2025 7:00 AM EDT) ECG INTERPRET Atrial Fib [facility] 05/20/2025 7:00 AM EDT Narrative [facility] - 05/20/2025 10:01 AM EDT ROUTINE SDP QRS 0.08 QT 0.46 See Clinical Report link for waveform capture us Unknown Provider POINT OF CARE CARDIOLOGY Final Result Performing Organization Address City/[facility]/ZIP Co de Phone Number [facility] 1 [place] [address] * MAGNESIUM LEVEL (05/20/2025 6:59 AM EDT) Pathologist [facility] Magnesium 2.1 1.6 - 2.4 mg/dL 05/20/2025 7:56 AM EDT [facility] Blood VENOUS BLOOD / Unknown Venipuncture / Unknown 05/20/2025 6:59 AM EDT 05/20/2025 7:23 AM EDT us Carlos Manuel Landaverde II, MD CHEMISTRY ORDERABLES Mita l Result [facility] 1 [facility], [place] [address] * (ABNORMAL) CBC (05/20/2025 6:59 [...] ORDERABLES Fin al Result [facility] 1 [facility] , [place] [address] * (ABNORMAL) BASIC METABOLIC PANEL (05/20/2025 6:59 AM EDT) Sodium 137 136 - 145 mmol/L 05/20/2025 7:56 AM EDT [facility] Potassium 4.1 3.5 - 5.0 mmol/L 05/20/2025 7:56 AM EDT [facility] Chloride 106 98 - 107 mmol/L 05/20/2025 7:56 AM EDT [facility] Total [...] recommended by the National Kidney Foundation - [place] [employer] of Nephrology Task Force. Blood VENOUS BLOOD / Unknown Venipuncture / Unknown 05/20/2025 6:59 AM EDT 05/20/2025 7:23 AM EDT us Carlos Manuel Landaverde II, MD CHEMISTRY ORDERABLES Mita l Result Performing Organization Address City/[facility]/ZIP Co de Phone Number [facility] [employer] [facility] [address] [facility], [place] [address] * ECG AND WAVEFORMS - TELEMETRY (05/19/2025 8:00 PM EDT) ECG INTERPRET Atrial Fib [facility] 05/19/2025 8:00 PM EDT Narrative [facility] - 05/19/2025 8:45 PM EDT ROUTINE (MS) QRS 0.11 See Clinical Report link for waveform capture us Unknown Provider POINT OF CARE CARDIOLOGY Final Result Performing Organization Address [facility] Co de Phone Number [facility] 1 [place] [address] * ECG AND WAVEFORMS - TELEMETRY (05/19/2025 8:07 AM EDT) ECG INTERPRET Atrial Fib [facility] 05/19/2025 8:07 AM EDT Narrative [facility] - 05/19/2025 8:09 AM EDT ROUTINE//AC See Clinical Report link for waveform capture us Unknown Provider POINT OF CARE CARDIOLOGY Final Result Performing Organization Address [facility] Co de Phone Number [facility] 1 [place] [address] * XR ABDOMEN AP (05/19/2025 8:00 AM [...] 7:00 PM EDT) ECG INTERPRET Atrial Fib [facility] 05/18/2025 7:00 PM EDT Narrative [facility] - 05/18/2025 7:38 PM EDT PVC - ROUTINE QRS 0.11 See Clinical Report link for waveform capture us Unknown Provider POINT OF CARE CARDIOLOGY Final Result [facility] 1 [place] [phone] * ECG AND WAVEFORMS - TELEMETRY (05/18/2025 7:04 AM EDT) ECG INTERPRET Atrial Fib [facility] 05/18/2025 7:04 AM EDT Narrative [facility] - 05/18/2025 7:58 AM EDT ROUTINE-BB See Clinical Report link for waveform capture us Unknown Provider POINT OF CARE CARDIOLOGY Final Result Performing Organization Address [facility]/ZIP Co de Phone Number [facility] 1 [place] [address] * EXTRA HUITRON URINE CX (05/18/2025 6:43 AM EDT) Urine URINARY BLADDER STRUCTURE / Unknown 05/18/2025 6:43 AM EDT 05/18/2025 6:51 AM EDT us Cara Diallo APRN MICROBIOLOGY - GENERAL ORDERABLES Final Result Performing Organization Address [facility]/ZIP Co de Phone Number [facility] [address] [place] [id number] * URINALYSIS REFLEX (05/18/2025 6:43 AM EDT) Pathologist [facility] UA Color Yellow 05/18/2025 6:54 AM EDT [...] Est Negative Negative 05/18/2025 6:54 AM EDT [facility] [employer], [facility] UA Spec Grav 1.013 1.001 - 1.035 no units 05/18/2025 6:54 AM EDT [facility] [employer], [facility] Comment:Reference range helga d for random specimens only. Urine URINARY BLADDER STRUCTURE / Unknown 05/18/2025 6:43 AM EDT 05/18/2025 6:51 AM EDT Cara Diallo APRN URINE ORDERABLES Final Result Performing Organization Address [facility] Co de Phone Number [address] , [address] [place] [phone] * MAGNESIUM LEVEL (05/18/2025 6:28 AM EDT) Magnesium 2.1 1.6 - 2.4 mg/dL 05/18/2025 7:08 AM EDT [facility] [employer], [facility] Blood VENOUS BLOOD / Unknown Venipuncture / Unknown 05/18/2025 6:28 AM EDT 05/18/2025 6:37 AM EDT Carlos Manuel Landaverde II, MD CHEMISTRY ORDERABLES Mita l Result Performing Organization Address [facility] Co de Phone Number [address] , [place] [address] * (ABNORMAL) CBC (05/18/2025 6:28 AM EDT) WBC 4.8 3.7 - 10.3 x10(3)/mcL 05/18/2025 6:44 AM EDT [facility] [employer], [facility] RBC 2.31(L) 3.90 - 5.20 x10(6)/mcL 05/18/2025 6:44 AM EDT [facility] [employer], [facility] Hgb 8.7(L) 11.2 - 15.7 g/dL 05/18/2025 6:44 AM EDT [facility] [employer], [facility] Hct 26.4(L) 34.0 - 45.0 % 05/18/2025 6:44 AM EDT [facility] MCV 114.3(H) 80.0 - 100.0 fL 05/18/2025 6:44 AM EDT [facility] MCH 37.7(H) 26.0 - 34.0 pg 05/18/2025 6:44 AM EDT [facility] MCHC 33.0 30.7 - 35.5 g/dL 05/18/2025 6:44 AM EDT [facility] RDW 16.1(H) <=14.9 % 05/18/2025 6:44 AM EDT [facility] Platelet 97(L) 155 - 369 x10(3)/mcL 05/18/2025 6:44 AM EDT [facility] MPV 12.6(H) 8.8 - 12.5 fL 05/18/2025 6:44 AM EDT [facility] Blood VENOUS BLOOD / Unknown Venipuncture / Unknown 05/18/2025 6:28 AM EDT 05/18/2025 6:37 AM EDT us Carlos Manuel Landaverde II, MD HEMATOLOGY ORDERABLES Fin al Result [facility] 1 [facility] , [place] [address] * (ABNORMAL) BASIC METABOLIC PANEL (05/18/2025 6:28 AM EDT) Sodium 136 136 - 145 mmol/L 05/18/2025 7:08 AM EDT [facility] Potassium 4.2 3.5 - 5.0 mmol/L 05/18/2025 7:08 AM EDT [facility] Chloride 106 98 - 107 mmol/L 05/18/2025 7:08 AM EDT [facility] Total CO2 19(L) 22 - 29 mmol/L 05/18/2025 7:08 AM EDT [facility] Anion Gap 11 7 - 16 mmol/L 05/18/2025 7:08 AM EDT [facility] Calcium 8.9 8.8 - 10.4 mg/dL 05/18/2025 7:08 AM EDT [facility] Glucose Lvl 131(H) 70 - 99 mg/dL 05/18/2025 7:08 AM EDT [facility] BUN 18 8 - 23 mg/dL 05/18/2025 7:08 AM EDT [facility] Creatinine 0.83 0.51 - 1.30 mg/dL 05/18/2025 7:08 AM EDT [facility] eGFR (CKD-EPIcr 2020) 69 >=60 mL/min/1.7 3 m2 05/18/2025 7:08 AM EDT [facility] Comment:Estimated GFR was ca lculated using the CKD-EPIcr (2020) equation refit without race. The equation is recommended by the National Kidney Foundation - [place] [employer] of Nephrology Task Force. Blood VENOUS BLOOD / Unknown Venipuncture / Unknown 05/18/2025 6:28 AM EDT 05/18/2025 6:37 AM EDT us Carlos Manuel Landaverde II, MD CHEMISTRY ORDERABLES Mita l Result [facility] [address] [facility], [address] [place] [phone] * ECG AND WAVEFORMS - TELEMETRY (05/17/2025 7:08 PM EDT) ECG INTERPRET Atrial Fib [facility] 05/17/2025 7:08 PM EDT Narrative [facility] - 05/17/2025 7:18 PM EDT HC/ROUTINE QRS 0.11 See Clinical Report link for waveform capture us Unknown Provider POINT OF CARE CARDIOLOGY Final Result [facility] 1 [place] [address] * MAGNESIUM LEVEL (05/17/2025 1:29 PM EDT) Pathologist [facility] Magnesium 2.1 1.6 - 2.4 mg/dL 05/17/2025 2:32 PM EDT [facility] Blood VENOUS BLOOD / Unknown Venipuncture / Unknown 05/17/2025 1:29 PM EDT 05/17/2025 1:35 PM EDT Carlos Manuel Landaverde II, MD CHEMISTRY ORDERABLES Mita lina Result [facility] [address] [facility] , [place] [address] * (ABNORMAL) CBC (05/17/2025 1:29 PM EDT) Pathologist [facility] WBC 2.9(L) 3.7 - 10.3 x10(3)/mcL 05/17/2025 [...] Result [facility] [address] [facility] , [place] [address] * (ABNORMAL) BASIC METABOLIC PANEL (05/17/2025 1:29 PM EDT) Pathologist [facility] Sodium 137 136 - 145 mmol/L 05/17/2025 [...] recommended by the National Kidney Foundation - [place] [employer] of Nephrology Task Force. Blood VENOUS BLOOD / Unknown Venipuncture / Unknown 05/17/2025 1:29 PM EDT 05/17/2025 1:35 PM EDT us Carlos Manuel Landaverde II, MD CHEMISTRY ORDERABLES Mita l Result Performing Organization Address City/[facility]/ZIP Co de Phone Number [facility] [employer] [address] [facility], [place] [address] * ECG AND WAVEFORMS - TELEMETRY (05/17/2025 7:31 AM EDT) ECG INTERPRET Atrial Fib [facility] 05/17/2025 7:31 AM EDT Narrative [facility] - 05/17/2025 8:33 AM EDT ROUTINE-BB See Clinical Report link for waveform capture us Unknown Provider POINT OF CARE CARDIOLOGY Final Result Performing Organization Address [facility] de Phone Number [facility] 1 [place] [address] * ECG AND WAVEFORMS - TELEMETRY (05/16/2025 10:49 PM EDT) ECG INTERPRET Atrial Fib [facility] 05/16/2025 10:4 9 PM EDT Narrative [facility] - 05/16/2025 11:00 PM EDT nEW ADMIT (MS) QRS 0.10 See Clinical Report link for waveform capture us Unknown Provider POINT OF CARE CARDIOLOGY Final Result Performing Organization Address [facility] Co de Phone Number [facility] 1 [place] [address] * ECG AND WAVEFORMS - TELEMETRY (05/16/2025 7:26 AM EDT) ECG INTERPRET Atrial Fib [facility] 05/16/2025 7:26 AM EDT Narrative [facility] - 05/16/2025 7:27 AM EDT ROUTINE/PB QRS 0.09 See Clinical Report link for waveform capture us Unknown Provider POINT OF CARE CARDIOLOGY Final Result Performing Organization Address [facility] Co de Phone Number [facility] 1 [place] [phone] * (ABNORMAL) CBC (05/16/2025 3:24 AM EDT) [...] 3:24 AM EDT 05/16/2025 3:37 AM EDT Carlos Manuel Landaverde II, MD HEMATOLOGY ORDERABLES Fin al Result [facility] 1 [facility] , [place] [address] * (ABNORMAL) BASIC METABOLIC PANEL (05/16/2025 3:24 AM EDT) Sodium 136 136 - 145 mmol/L 05/16/2025 4:10 AM EDT [facility] Potassium 4.4 3.5 - 5.0 mmol/L 05/16/2025 4:10 AM EDT [facility] Chloride 105 98 - 107 mmol/L 05/16/2025 4:10 AM EDT [facility] Total CO2 22 22 - 29 mmol/L 05/16/2025 4:10 AM EDT [facility] Anion Gap 9 7 - 16 mmol/L 05/16/2025 4:10 AM EDT [facility] Calcium 8.5(L) 8.8 - 10.4 mg/dL 05/16/2025 4:10 AM EDT [facility] Glucose Lvl 126(H) 70 - 99 mg/dL 05/16/2025 4:10 AM EDT [facility] BUN 18 8 - 23 mg/dL 05/16/2025 4:10 AM EDT [facility] Creatinine 0.80 0.51 - 1.30 mg/dL 05/16/2025 4:10 AM EDT [facility] eGFR (CKD-EPIcr 2020) 72 >=60 mL/min/1.7 3 m2 05/16/2025 4:10 AM EDT [facility] Comment:Estimated GFR was ca lculated using the CKD-EPIcr (2020) equation refit without race. The equation is recommended by the [employer] - [place] [employer] of [employer] Task Force. Blood VENOUS BLOOD / Unknown Venipuncture / Unknown 05/16/2025 3:24 AM EDT 05/16/2025 3:36 AM EDT us Carlos Manuel Landaverde II, MD CHEMISTRY ORDERABLES Mita mills Result [facility] [address] [facility] , [place] [address] * MAGNESIUM LEVEL (05/16/2025 3:24 AM EDT) Magnesium 1.9 1.6 - 2.4 mg/dL 05/16/2025 4:10 AM EDT [facility] [place] Blood VENOUS BLOOD / Unknown Venipuncture / Unknown 05/16/2025 3:24 AM EDT 05/16/2025 3:36 AM EDT Carlos Manuel Landaverde II, MD CHEMISTRY ORDERABLES Mita l Result Performing Organization Address City/[facility]/ZIP Co de Phone Number [facility], [facility] [address] [facility], [place] [address] * ECG AND WAVEFORMS - TELEMETRY (05/15/2025 8:05 PM EDT) Pathologist [facility] ECG INTERPRET Atrial Fib [facility] 05/15/2025 8:05 PM EDT Narrative [facility] - 05/15/2025 8:11 PM EDT ROUTINE (AM) QRS 0.11 QT 0.45 See Clinical Report link for waveform capture us Unknown Provider POINT OF CARE CARDIOLOGY Final Result Performing Organization Address City/[facility]/ZIP Co de Phone Number [facility] 1 [place] [address] * (ABNORMAL) CBC (05/15/2025 10:41 AM EDT) Pathologist [facility] WBC 3.1(L) 3.7 - 10.3 x10(3)/mcL 05/15/2025 11:08 AM EDT [facility] RBC 2.23(L) 3.90 - 5.20 x10(6)/mcL 05/15/2025 11:08 AM EDT [facility] Hgb 8.3(L) 11.2 - 15.7 g/dL 05/15/2025 11:08 AM EDT [facility] Hct 25.6(L) 34.0 - 45.0 % 05/15/2025 11:08 AM EDT [facility] MCV 114.8(H) 80.0 - 100.0 fL 05/15/2025 11:08 AM EDT [facility] MCH 37.2(H) 26.0 - 34.0 pg 05/15/2025 11:08 AM EDT [facility] MCHC 32.4 30.7 - 35.5 g/dL 05/15/2025 11:08 AM EDT [facility] RDW 16.3(H) <=14.9 % 05/15/2025 11:08 AM EDT [facility] Platelet 76(L) 155 - 369 x10(3)/mcL 05/15/2025 11:08 AM EDT [facility] MPV 12.6(H) 8.8 - 12.5 fL 05/15/2025 11:08 AM EDT [facility] Blood VENOUS BLOOD / Unknown Venipuncture / Unknown 05/15/2025 10:41 AM EDT 05/15/2025 10:56 AM EDT Carlos Manuel Landaverde II, MD HEMATOLOGY ORDERABLES Fin al Result Performing Organization Address [facility] Co de Phone Number [facility], [address] , [place] [address] * MAGNESIUM LEVEL (05/15/2025 10:41 AM EDT) Magnesium 1.9 1.6 - 2.4 mg/dL 05/15/2025 11:30 AM EDT [facility] Blood VENOUS BLOOD / Unknown Venipuncture / Unknown 05/15/2025 10:41 AM EDT 05/15/2025 10:56 AM EDT Carlos Manuel Landaverde II, MD CHEMISTRY ORDERABLES Mita l Result Performing Organization Address [facility] Co de Phone Number [facility], [address] , [place] [address] * (ABNORMAL) BASIC METABOLIC PANEL (05/15/2025 10:41 AM EDT) Sodium 138 136 - 145 mmol/L 05/15/2025 11:30 AM EDT [facility] Potassium 4.4 3.5 - 5.0 mmol/L 05/15/2025 11:30 AM EDT [facility] Chloride 107 98 - 107 mmol/L 05/15/2025 11:30 AM EDT [facility] Total CO2 22 22 - 29 mmol/L 05/15/2025 11:30 AM EDT [facility] Anion Gap 9 7 - 16 mmol/L 05/15/2025 11:30 AM EDT [facility] Calcium 8.7(L) 8.8 - 10.4 mg/dL 05/15/2025 11:30 AM EDT [facility] Glucose Lvl 116(H) 70 - 99 mg/dL 05/15/2025 11:30 AM EDT [facility] BUN 19 8 - 23 mg/dL 05/15/2025 11:30 AM EDT [facility] Creatinine 0.80 0.51 - 1.30 mg/dL 05/15/2025 11:30 AM EDT [facility] eGFR (CKD-EPIcr 2020) 72 >=60 mL/min/1.7 3 m2 05/15/2025 11:30 AM EDT [facility] Comment:Estimated GFR was ca lculated using the CKD-EPIcr (2020) equation refit without race. The equation is recommended by the National Kid[employer] - [place] [employer] Neph[employer] Task Force. Blood VENOUS BLOOD / Unknown Venipuncture / Unknown 05/15/2025 10:41 AM EDT 05/15/2025 10:56 AM EDT us Carlos Manuel Landaverde II, MD CHEMISTRY ORDERABLES Mita lina Result [facility] [address] [facility] , [address] [place] [id number] * ECG AND WAVEFORMS - TELEMETRY (05/15/2025 7:03 AM EDT) ECG INTERPRET Atrial Fib [facility] 05/15/2025 7:03 AM EDT Narrative [facility] - 05/15/2025 7:51 AM EDT ROUTINE-BB See Clinical Report link for waveform capture us Unknown Provider POINT OF CARE CARDIOLOGY Final Result Performing Organization Address [facility] Co de Phone Number [facility] 1 [place] [address] * ECG AND WAVEFORMS - TELEMETRY (05/14/2025 8:40 PM EDT) ECG INTERPRET Atrial Fib [facility] 05/14/2025 8:40 PM EDT Narrative [facility] - 05/14/2025 8:45 PM EDT PVCS ROUTINE (AM) See Clinical Report link for waveform capture us Unknown Provider POINT OF CARE CARDIOLOGY Final Result Performing Organization Address [facility] de Phone Number [facility] 1 [place] [address] * ECG AND WAVEFORMS - TELEMETRY (05/14/2025 7:46 AM EDT) ECG INTERPRET Atrial Fib [facility] 05/14/2025 7:46 AM EDT Narrative [facility] - 05/14/2025 7:47 AM EDT ROUTINE/PB QRS 0.09 See Clinical Report link for waveform capture us Unknown Provider POINT OF CARE CARDIOLOGY Final Result Performing Organization Address [facility] de Phone Number [facility] 1 [place] [address] * ECG AND WAVEFORMS - TELEMETRY (05/13/2025 8:30 PM EDT) ECG INTERPRET Atrial Fib [facility] 05/13/2025 8:30 PM EDT Narrative [facility] - 05/13/2025 8:37 PM EDT PVC . ROUTINE (AM) CT 0.19 QRS 0.11 RR 0.65 QT 0.37 QTc 0.46 See Clinical Report link for waveform capture us Unknown Provider POINT OF CARE CARDIOLOGY Final Result Performing Organization Address [facility] Co de Phone Number [facility] 1 [place] [address] * ECG AND WAVEFORMS - TELEMETRY (05/13/2025 6:32 PM EDT) ECG INTERPRET Ventricular Tachycardia [facility] Comment:6 beats 05/13/2025 6:32 PM EDT Narrative [facility] - 05/13/2025 6:40 PM EDT 6 BTS NSVT/AK See Clinical Report link for waveform capture us Unknown Provider POINT OF CARE CARDIOLOGY Final Result Performing Organization Address City/[facility]/ZIP Co de Phone Number [facility] 1 [place] [address] * ECG AND WAVEFORMS - TELEMETRY (05/13/2025 7:40 AM EDT) ECG INTERPRET Atrial Fib [facility] 05/13/2025 7:40 AM EDT Narrative [facility] - 05/13/2025 7:44 AM EDT ROUTINE/AK QRS 0.09 See Clinical Report link for waveform capture us Unknown Provider POINT OF CARE CARDIOLOGY Final Result Performing Organization Address [facility] Co de Phone Number [facility] 1 [place] [address] * ECG AND WAVEFORMS - TELEMETRY (05/12/2025 7:00 PM EDT) [facility] Signature ECG INTERPRET Atrial Fib [facility] 05/12/2025 7:00 PM EDT Narrative [facility] - 05/12/2025 7:46 PM EDT ROUTINE (MS) QRS 0.10 See Clinical Report link for waveform capture us Unknown Provider POINT OF CARE CARDIOLOGY Final Result Performing Organization Address [facility] Co de Phone Number [facility] 1 [place] [address] * GLUCOSE METER POC (05/12/2025 12:04 PM EDT) Glucose Meter POC 87 70 - 100 mg/dL 05/12/2025 12:05 PM EDT [facility] Sample Type Capillary 05/12/2025 12:05 PM EDT [facility] Patient Status Non-Critical Patient 05/12/2025 12:05 PM EDT [facility] Blood BLOOD SPECIMEN / Unknown 05/12/2025 12:04 PM EDT 05/12/2025 12:05 PM EDT Marcell Aguirre MD POINT OF CARE TEST ORDERABLES Final Result Performing Organization Address City/[facility]/ZIP Co de Phone Number [facility] [address] [place] [address] * (ABNORMAL) GLUCOSE METER POC (05/12/2025 10:40 AM EDT) Glucose Meter POC 105(H) 70 - 100 mg/dL 05/12/2025 10:43 AM EDT [facility] Sample Type Capillary 05/12/2025 10:43 AM EDT [facility] Patient Status Non-Critical Patient 05/12/2025 10:43 AM EDT [facility] Blood BLOOD SPECIMEN / Unknown 05/12/2025 10:40 AM EDT 05/12/2025 10:43 AM EDT us Marcell Aguirre MD POINT OF CARE TEST ORDERABLES Final Result Performing Organization Address [facility] [place] [address] * ECG AND WAVEFORMS - TELEMETRY (05/12/2025 7:30 AM EDT) ECG INTERPRET Atrial Fib [facility] 05/12/2025 7:30 AM EDT Narrative [facility] - 05/12/2025 7:59 AM EDT TRO/AM ROUTINE QRS 0.10 QT 0.39 See Clinical Report link for waveform capture us Unknown Provider POINT OF CARE CARDIOLOGY Final Result Performing Organization Address City/[facility]/ZIP Co de Phone Number [facility] [address] [place] [phone] * ECG AND WAVEFORMS - TELEMETRY (05/11/2025 7:00 PM EDT) ECG INTERPRET Atrial Fib [facility] 05/11/2025 7:00 PM EDT Narrative [facility] - 05/11/2025 8:43 PM EDT QRS 0.09 See Clinical Report link for waveform capture us Unknown Provider POINT OF CARE CARDIOLOGY Final Result Performing Organization Address City/[facility] Co de Phone Number [facility] 1 [place] [address] * ECG AND WAVEFORMS - TELEMETRY (05/11/2025 8:01 AM EDT) ECG INTERPRET Atrial Fib [facility] 05/11/2025 8:01 AM EDT Narrative [facility] - 05/11/2025 8:32 AM EDT TRO/AM ROUTINE- AFIB PVC QRS 0.11 QT 0.37 See Clinical Report link for waveform capture us Unknown Provider POINT OF CARE CARDIOLOGY Final Result Performing Organization Address [facility] de Phone Number [facility] [address] [place] [address] * ECG AND WAVEFORMS - TELEMETRY (05/10/2025 7:12 PM EDT) ECG INTERPRET Atrial Fib [facility] 05/10/2025 7:12 PM EDT Narrative [facility] - 05/10/2025 7:56 PM EDT ROUTINE QRS 0.12 See Clinical Report link for waveform capture us Unknown Provider POINT OF CARE CARDIOLOGY Final Result Performing Organization Address [facility] de Phone Number [facility] [address] [place] [address] * ECG AND WAVEFORMS - TELEMETRY (05/10/2025 5:30 PM EDT) ECG INTERPRET Atrial Fib [facility] 05/10/2025 5:30 PM EDT Narrative [facility] - 05/10/2025 5:34 PM EDT ADMIT (BS) QRS 0.09 See Clinical Report link for waveform capture us Unknown Provider POINT OF CARE CARDIOLOGY Final Result Performing Organization Address [facility] Co de Phone Number [facility] 1 [place] [address] * (ABNORMAL) GLUCOSE METER POC (05/10/2025 2:18 PM EDT) [facility] Glucose Meter POC 104(H) 70 - 100 mg/dL 05/10/2025 2:20 PM EDT [facility] Sample Type Capillary 05/10/2025 2:20 PM EDT [facility] Patient Status Non-Critical Patient 05/10/2025 2:20 PM EDT [facility] Blood BLOOD SPECIMEN / Unknown 05/10/2025 2:18 PM EDT 05/10/2025 2:20 PM EDT us Marcell Aguirre MD POINT OF CARE TEST ORDERABLES Final Result Performing Organization Address [facility] Co de Phone Number [facility] 1 [place] [address] * IR ULTRASOUND GUIDED VASCULAR ACCESS (05/10/2025 2:06 PM EDT) Anatomical Region Laterality Modality Interventional R adiology Narrative 05/19/2025 3:05 PM EDT DATE OF PROCEDURE: 05/10/2025 PREOPERATIVE DIAGNOSES: LLE critical limb ischemia, History of L TMA, PAD POSTOPERATIVE DIAGNOSES: Same PROCEDURE PERFORMED: 1. US guided access of the right common femoral artery 2. Abdominal aortogram. Selection of L SFA via R SECURITY MANAGEMENT SPECIALIST (3rd order) with left lower extremity angiogram. Selection of INTERPRETER AND TRANSLATOR with additional angiogram. Radiographic supervision and interpretation [...] TPT and peroneal artery, reconstitution of proximal INTERPRETER AND TRANSLATOR with mid and distal INTERPRETER AND TRANSLATOR with multifocal severe stenosis of proximal and mid INTERPRETER AND TRANSLATOR but occluded distally without reconstitution. Significant small [...] with severe stenosis, patent proximal and mid INTERPRETER AND TRANSLATOR with multifocal severe stenosis, patent peroneal artery Significant small vessel disease in L foot INDICATIONS: Skyler Bautista is a 84 y.o. female with PMHx significant for PAD s/p pelvic angiogram with bilateral NILAY stents s/p LLE angiogram with INTERPRETER AND TRANSLATOR of popliteal artery, TPT and peroneal artery [...] a hemostat. Under ultrasound guidance, the R SECURITY MANAGEMENT SPECIALIST was accessed using a micropuncture needle. X-ray [...] and catheter were used to select the INTERPRETER AND TRANSLATOR to better evaluate if it reconstituted distally. After the INTERPRETER AND TRANSLATOR was selected, an angiogram was obtained, which [...] procedure. SUMMARY: Significant small vessel disease. Occluded INTERPRETER AND TRANSLATOR and DAREN distally without reconstitution. RECOMMENDATIONS: Bed rest for 3 hours. Recommend proximal LLE amputation. Voice recognition technology was used to complete this note, and it may contain unintended errors despite the designer writer's best efforts to proofread it. Please contact me with questions. TID: [id number] us Lawrence Wolf MD IMG IR ORDERABLES [...] aortogram. Selection of L SFA via R SECURITY MANAGEMENT SPECIALIST (3rd order) with left lower extremity angiogram. Selection of INTERPRETER AND TRANSLATOR with additional angiogram. Radiographic supervision and interpretation [...] TPT and peroneal artery, reconstitution of proximal INTERPRETER AND TRANSLATOR with mid and distal INTERPRETER AND TRANSLATOR with multifocal severe stenosis of proximal and mid INTERPRETER AND TRANSLATOR but occluded distally without reconstitution. Significant small [...] with severe stenosis, patent proximal and mid INTERPRETER AND TRANSLATOR with multifocal severe stenosis, patent peroneal artery Significant small vessel disease in L foot INDICATIONS: Skyler Bautista is a 84 y.o. female with PMHx significant for PAD s/p pelvic angiogram with bilateral NILAY stents s/p LLE angiogram with INTERPRETER AND TRANSLATOR of popliteal artery, TPT and peroneal artery [...] a hemostat. Under ultrasound guidance, the R SECURITY MANAGEMENT SPECIALIST was accessed using a micropuncture needle. X-ray [...] and catheter were used to select the INTERPRETER AND TRANSLATOR to better evaluate if it reconstituted distally. After the INTERPRETER AND TRANSLATOR was selected, an angiogram was obtained, which [...] procedure. SUMMARY: Significant small vessel disease. Occluded INTERPRETER AND TRANSLATOR and DAREN distally without reconstitution. RECOMMENDATIONS: Bed rest for 3 hours. Recommend proximal LLE amputation. Voice recognition technology was used to complete this note, and it may contain unintended errors despite the designer writer's best efforts to proofread it. Please contact me with questions. TID: [id number] us Lawrence Wolf MD IMG IR ORDERABLES Final Res ult * ECG AND WAVEFORMS - TELEMETRY (05/10/2025 8:04 AM EDT) [facility] ECG INTERPRET Atrial Fib [facility] 05/10/2025 8:04 AM EDT Narrative [facility] - 05/10/2025 8:10 AM EDT EH - ROUTINE; PVCs QRS 0.12 See Clinical Report link for waveform capture us Unknown Provider POINT OF CARE CARDIOLOGY Final Result [facility] 1 [place] [address] * ECG AND WAVEFORMS - TELEMETRY (05/09/2025 7:03 PM EDT) ECG INTERPRET Atrial Fib [facility] 05/09/2025 7:03 PM EDT Narrative [facility] - 05/09/2025 8:25 PM EDT PVC- ROUTINE QRS 0.09 See Clinical Report link for waveform capture us Unknown Provider POINT OF CARE CARDIOLOGY Final Result Performing Organization Address City/[facility]/ZIP Co de Phone Number [facility] 1 [place] [phone] * (ABNORMAL) GLUCOSE METER POC (05/09/2025 3:49 PM EDT) [facility] Glucose Meter POC 134(H) 70 - 100 mg/dL 05/09/2025 3:50 PM EDT [facility] Sample Type Capillary 05/09/2025 3:50 PM EDT [facility] Patient Status Non-Critical Patient 05/09/2025 3:50 PM EDT [facility] Blood BLOOD SPECIMEN / Unknown 05/09/2025 3:49 PM EDT 05/09/2025 3:50 PM EDT us Marcell Aguirre MD POINT OF CARE TEST ORDERABLES Final Result Performing Organization Address [facility] Co de Phone Number [facility] [address] [place] [address] * ECG AND WAVEFORMS - TELEMETRY (05/09/2025 12:37 PM EDT) ECG INTERPRET Atrial Fib [facility] 05/09/2025 12:3 7 PM EDT Narrative [facility] - 05/09/2025 12:40 PM EDT EH - NEW ADMIT; PVCs QRS 0.12 See Clinical Report link for waveform capture us Unknown Provider POINT OF CARE CARDIOLOGY Final Result Performing Organization Address City/[facility] Co de Phone Number [facility] 1 [place], [place] [phone] * ECG AND WAVEFORMS - TELEMETRY (05/09/2025 7:34 AM EDT) ECG INTERPRET Atrial Fib [facility] 05/09/2025 7:34 AM EDT Narrative [facility] - 05/09/2025 7:58 AM EDT ROUTINE//AC See Clinical Report link for waveform capture us Unknown Provider POINT OF CARE CARDIOLOGY Final Result Performing Organization Address [facility]/ZIP Co de Phone Number [facility] [address] [place] [address] * ECG AND WAVEFORMS - TELEMETRY (05/08/2025 7:01 PM EDT) ECG INTERPRET Atrial Fib [facility] 05/08/2025 7:01 PM EDT Narrative [facility] - 05/08/2025 7:49 PM EDT ROUTINE W/ PVCS (HM) QRS 0.09 See Clinical Report link for waveform capture us Unknown Provider POINT OF CARE CARDIOLOGY Final Result Performing Organization Address [facility] Co de Phone Number [facility] [address] [place] [address] * ECG AND WAVEFORMS - TELEMETRY (05/08/2025 7:20 AM EDT) ECG INTERPRET Atrial Fib [facility] 05/08/2025 7:20 AM EDT Narrative [facility] - 05/08/2025 7:22 AM EDT PVCS-ROUTINE/PB QRS 0.09 See Clinical Report link for waveform capture us Unknown Provider POINT OF CARE CARDIOLOGY Final Result Performing Organization Address [facility] Co de Phone Number [facility] [address] [place] [address] * (ABNORMAL) CBC (05/08/2025 5:24 AM EDT) [...] 05/08/2025 6:38 AM EDT [facility] MCHC 32.7 30.7 - 35.5 g/dL 05/08/2025 6:38 AM EDT [facility] RDW 17.6(H) <=14.9 % 05/08/2025 6:38 AM EDT [facility] Platelet 60(L) 155 - 369 x10(3)/mcL 05/08/2025 6:38 AM EDT [facility] MPV 12.6(H) 8.8 - 12.5 fL 05/08/2025 6:38 AM EDT [facility] Blood VENOUS BLOOD / Unknown Venipuncture / Unknown 05/08/2025 5:24 AM EDT 05/08/2025 6:28 AM EDT us Geo Guallpa MD HEMATOLOGY ORDERABLES Final Resu lt [facility] 1 [facility] , [address] [place] [phone] * (ABNORMAL) BASIC METABOLIC PANEL (05/08/2025 5:24 AM EDT) Sodium 137 136 - 145 mmol/L 05/08/2025 6:59 AM EDT [facility] Potassium 4.2 3.5 - 5.0 mmol/L 05/08/2025 6:59 AM EDT [facility] Chloride 107 98 - 107 mmol/L 05/08/2025 6:59 AM EDT [facility] Total CO2 21(L) 22 - 29 mmol/L 05/08/2025 6:59 AM EDT [facility] Anion Gap 9 7 - 16 mmol/L 05/08/2025 6:59 AM EDT [facility] Calcium 8.6(L) 8.8 - 10.4 mg/dL 05/08/2025 6:59 AM EDT [facility] Glucose Lvl 116(H) 70 - 99 mg/dL 05/08/2025 6:59 AM EDT [facility] BUN 27(H) 8 - 23 mg/dL 05/08/2025 6:59 AM EDT [facility] Creatinine 0.78 0.51 - 1.30 mg/dL 05/08/2025 6:59 AM EDT [facility] eGFR (CKD-EPIcr 2020) 74 >=60 mL/min/1.7 3 m2 05/08/2025 6:59 AM EDT [facility] Comment:Estimated GFR was ca lculated using the CKD-EPIcr (2020) equation refit without race. The equation is recommended by the National Kidney Foundation - [place] [employer] Task Force. Blood VENOUS BLOOD / Unknown Venipuncture / Unknown 05/08/2025 5:24 AM EDT 05/08/2025 6:28 AM EDT us Geo Guallpa MD CHEMISTRY ORDERABLES Final Resul t [facility], [address] , [place] [address] * ECG AND WAVEFORMS - TELEMETRY (05/07/2025 10:27 PM EDT) ECG INTERPRET Atrial Fib [facility] 05/07/2025 10:2 7 PM EDT Narrative [facility] - 05/07/2025 10:29 PM EDT ROUTINE/JF QRS 0.10 See Clinical Report link for waveform capture us Unknown Provider POINT OF CARE CARDIOLOGY Final Result [facility] [address] [place] [address] * (ABNORMAL) CBC (05/07/2025 7:33 AM EDT) [...] Resu lt [facility] 1 [facility] , [place] [address] * (ABNORMAL) BASIC METABOLIC PANEL (05/07/2025 7:33 AM EDT) Sodium 135(L) 136 - 145 mmol/L 05/07/2025 8:11 AM EDT [facility] Potassium 4.2 3.5 - 5.0 mmol/L 05/07/2025 8:11 AM EDT [facility] Chloride 104 98 - 107 mmol/L 05/07/2025 8:11 AM EDT [facility] Total CO2 20(L) 22 - 29 mmol/L 05/07/2025 8:11 AM EDT [facility] Anion Gap 11 7 - 16 mmol/L 05/07/2025 8:11 AM EDT [facility] Calcium 9.0 8.8 - 10.4 mg/dL 05/07/2025 8:11 AM EDT [facility] Glucose Lvl 112(H) 70 - 99 mg/dL 05/07/2025 8:11 AM EDT [facility] BUN 24(H) 8 - 23 mg/dL 05/07/2025 8:11 AM EDT [facility] Creatinine 0.85 0.51 - 1.30 mg/dL 05/07/2025 8:11 AM EDT [facility] eGFR (CKD-EPIcr 2020) 67 >=60 mL/min/1.7 3 m2 05/07/2025 8:11 AM EDT [facility] Comment:Estimated GFR was ca lculated using the CKD-EPIcr (2020) equation refit without race. The equation is recommended by the [employer] - [place] [employer] Task Force. Blood VENOUS BLOOD / Unknown Venipuncture / Unknown 05/07/2025 7:33 AM EDT 05/07/2025 7:38 AM EDT us Geo Guallpa MD CHEMISTRY ORDERABLES Final Resul t [facility] [address] [facility] , [place] [address] * ECG AND WAVEFORMS - TELEMETRY (05/07/2025 7:03 AM EDT) [facility] ECG INTERPRET Atrial Fib [facility] 05/07/2025 7:03 AM EDT Narrative [facility] - 05/07/2025 8:32 AM EDT AM ROUTINE QRS 0.09 See Clinical Report link for waveform capture us Unknown Provider POINT OF CARE CARDIOLOGY Final Result Performing Organization Address City/[facility]/ZIP Co de Phone Number [facility] 1 [place] [address] * ECG AND WAVEFORMS - TELEMETRY (05/06/2025 9:57 PM EDT) [facility] ECG INTERPRET Atrial Fib [facility] 05/06/2025 9:57 PM EDT Narrative [facility] - 05/06/2025 9:59 PM EDT ROUTINE/JF QRS 0.08 See Clinical Report link for waveform capture us Unknown Provider POINT OF CARE CARDIOLOGY Final Result Performing Organization Address [facility] de Phone Number [facility] 1 [place] [address] * (ABNORMAL) GLUCOSE METER POC (05/06/2025 5:50 PM EDT) [facility] Glucose Meter POC 110(H) 70 - 100 mg/dL 05/06/2025 5:52 PM EDT [facility] Sample Type Capillary 05/06/2025 5:52 PM EDT [facility] Patient Status Non-Critical Patient 05/06/2025 5:52 PM EDT [facility] Blood BLOOD SPECIMEN / Unknown 05/06/2025 5:50 PM EDT 05/06/2025 5:52 PM EDT us Marcell Aguirre MD POINT OF CARE TEST ORDERABLES Final Result Performing Organization Address City/[facility]/ZIP Co de Phone Number [facility] 1 [place], [place] [id number] * POTASSIUM REPEAT (05/06/2025 9:19 AM EDT) [facility] Potassium 4.8 3.5 - 5.0 mmol/L 05/06/2025 9:56 AM EDT [facility] [employer] Blood VENOUS BLOOD / Unknown Venipuncture / Unknown 05/06/2025 9:19 AM EDT 05/06/2025 9:23 AM EDT us Geo Guallpa MD CHEMISTRY ORDERABLES Final Resul t Performing Organization Address City/[facility]/ZIP Co de Phone Number [facility] [address] [facility], [place] [address] * ECG AND WAVEFORMS - TELEMETRY (05/06/2025 7:00 AM EDT) [facility] ECG INTERPRET Atrial Fib [facility] 05/06/2025 7:00 AM EDT Narrative [facility] - 05/06/2025 8:28 AM EDT ECB - ROUTINE QRS 0.11 See Clinical Report link for waveform capture us Unknown Provider POINT OF CARE CARDIOLOGY Final Result Performing Organization Address City/[facility] Co de Phone Number [facility] 1 [place], [place] [id number] * (ABNORMAL) CBC (05/06/2025 5:59 AM EDT) [facility] WBC 4.5 3.7 - 10.3 x10(3)/mcL 05/06/2025 [...] 05/06/2025 7:53 AM EDT [facility] MCHC 32.6 30.7 - 35.5 g/dL 05/06/2025 7:53 AM EDT [facility] RDW 17.2(H) <=14.9 % 05/06/2025 7:53 AM EDT [facility] Platelet 64(L) 155 - 369 x10(3)/mcL 05/06/2025 7:53 AM EDT [facility] MPV 12.7(H) 8.8 - 12.5 fL 05/06/2025 7:53 AM EDT [facility] Blood VENOUS BLOOD / Unknown Venipuncture / Unknown 05/06/2025 5:59 AM EDT 05/06/2025 7:40 AM EDT us Geo Guallpa MD HEMATOLOGY ORDERABLES Final Resu lt [facility] 1 [facility] , [place] [address] * (ABNORMAL) BASIC METABOLIC PANEL (05/06/2025 5:59 AM EDT) Sodium 136 136 - 145 mmol/L 05/06/2025 8:15 AM EDT [facility] Potassium 05/06/2025 8:15 AM EDT [facility] Comment:Unable to result pot assium due to elevated hemolysis. Chloride 106 98 - 107 mmol/L 05/06/2025 8:15 AM EDT [facility] Total CO2 19(L) 22 - 29 mmol/L 05/06/2025 8:15 AM EDT [facility] Anion Gap 11 7 - 16 mmol/L 05/06/2025 8:15 AM EDT [facility] Calcium 8.7(L) 8.8 - 10.4 mg/dL 05/06/2025 8:15 AM EDT [facility] Glucose Lvl 103(H) 70 - 99 mg/dL 05/06/2025 8:15 AM EDT [facility] BUN 23 8 - 23 mg/dL 05/06/2025 8:15 AM EDT [facility] Creatinine 0.81 0.51 - 1.30 mg/dL 05/06/2025 8:15 AM EDT [facility] eGFR (CKD-EPIcr 2020) 71 >=60 mL/min/1.7 3 m2 05/06/2025 8:15 AM EDT [facility] Comment:Estimated GFR was ca lculated using the CKD-EPIcr (2020) equation refit without race. The equation is recommended by the [employer] - [place] [employer] Task Force. Blood VENOUS BLOOD / Unknown Venipuncture / Unknown 05/06/2025 5:59 AM EDT 05/06/2025 7:40 AM EDT us Geo Guallpa MD CHEMISTRY ORDERABLES Final Resul t Performing Organization Address City/[facility]/ZIP Co de Phone Number [facility] [address], [place] [address] * ECG AND WAVEFORMS - TELEMETRY (05/05/2025 10:41 PM EDT) ECG INTERPRET Atrial Fib [facility] 05/05/2025 10:4 1 PM EDT Narrative [facility] - 05/05/2025 10:43 PM EDT ROUTINE/AH QRS 0.08 See Clinical Report link for waveform capture us Unknown Provider POINT OF CARE CARDIOLOGY Final Result Performing Organization Address City/[facility]/ZIP Co de Phone Number [facility] [address] [place] [address] * (ABNORMAL) GLUCOSE METER POC (05/05/2025 11:10 AM EDT) Glucose Meter POC 132(H) 70 - 100 mg/dL 05/05/2025 11:12 AM EDT [facility] Sample Type Capillary 05/05/2025 11:12 AM EDT [facility] Patient Status Non-Critical Patient 05/05/2025 11:12 AM EDT [facility] Blood BLOOD SPECIMEN / Unknown 05/05/2025 11:10 AM EDT 05/05/2025 11:12 AM EDT Marcell Aguirre MD POINT OF CARE TEST ORDERABLES Final Result [facility] 1 [place] [address] * (ABNORMAL) GLUCOSE METER POC (05/05/2025 8:16 AM EDT) Glucose Meter POC 105(H) 70 - 100 mg/dL 05/05/2025 8:17 AM EDT [facility] Sample Type Capillary 05/05/2025 8:17 AM EDT [facility] Patient Status Non-Critical Patient 05/05/2025 8:17 AM EDT [facility] Blood BLOOD SPECIMEN / Unknown 05/05/2025 8:16 AM EDT 05/05/2025 8:17 AM EDT Marcell Aguirre MD POINT OF CARE TEST ORDERABLES Final Result Performing Organization Address City/[facility]/ZIP Co de Phone Number [facility] 1 [place] [address] * ECG AND WAVEFORMS - TELEMETRY (05/05/2025 7:00 AM EDT) ECG INTERPRET Sinus Arrythmia [facility] 05/05/2025 7:00 AM EDT Narrative [facility] - 05/05/2025 8:47 AM EDT ROUTINE - KB QRS 0.09 See Clinical Report link for waveform capture us Unknown Provider POINT OF CARE CARDIOLOGY Final Result [facility] 1 [place] [address] * (ABNORMAL) GLUCOSE METER POC (05/04/2025 9:12 PM EDT) Glucose Meter POC 115(H) 70 - 100 mg/dL 05/04/2025 9:14 PM EDT [facility] Sample Type Capillary 05/04/2025 9:14 PM EDT [facility] Patient Status Non-Critical Patient 05/04/2025 9:14 PM EDT [facility] Blood BLOOD SPECIMEN / Unknown 05/04/2025 9:12 PM EDT 05/04/2025 9:14 PM EDT us Marcell Aguirre MD POINT OF CARE TEST ORDERABLES Final Result Performing Organization Address City/[facility]/ZIP Co de Phone Number [facility] 1 [place] [address] * ECG AND WAVEFORMS - TELEMETRY (05/04/2025 7:24 PM EDT) ECG INTERPRET Atrial Fib [facility] 05/04/2025 7:24 PM EDT Narrative [facility] - 05/04/2025 7:26 PM EDT PVC'S-ROUTINE /KD QRS 0.10 See Clinical Report link for waveform capture us Unknown Provider POINT OF CARE CARDIOLOGY Final Result Performing Organization Address [facility] Co de Phone Number [facility] 1 [place] [phone] * ECG AND WAVEFORMS - TELEMETRY (05/04/2025 7:01 PM EDT) ECG INTERPRET Atrial Fib [facility] 05/04/2025 7:01 PM EDT Narrative [facility] - 05/04/2025 8:39 PM EDT ROUTINE (HM) QRS 0.10 See Clinical Report link for waveform capture us Unknown Provider POINT OF CARE CARDIOLOGY Final Result Performing Organization Address [facility] Co de Phone Number [facility] 1 [place], [place] [phone] * (ABNORMAL) GLUCOSE METER POC (05/04/2025 6:53 PM EDT) Glucose Meter POC 120(H) 70 - 100 mg/dL 05/04/2025 6:55 PM EDT [facility] Sample Type Capillary 05/04/2025 6:55 PM EDT [facility] Patient Status Non-Critical Patient 05/04/2025 6:55 PM EDT [facility] Blood BLOOD SPECIMEN / Unknown 05/04/2025 6:53 PM EDT 05/04/2025 6:55 PM EDT us Marcell Aguirre MD POINT OF CARE TEST ORDERABLES Final Result Performing Organization Address City/[facility]/ZIP Co de Phone Number [address] [address] * (ABNORMAL) GLUCOSE METER POC (05/04/2025 5:57 PM EDT) Glucose Meter POC 153(H) 70 - 100 mg/dL 05/04/2025 5:59 PM EDT [facility] Sample Type Capillary 05/04/2025 5:59 PM EDT [facility] Patient Status Non-Critical Patient 05/04/2025 5:59 PM EDT [facility] Blood BLOOD SPECIMEN / Unknown 05/04/2025 5:57 PM EDT 05/04/2025 5:59 PM EDT us Marcell Aguirre MD POINT OF CARE TEST ORDERABLES Final Result Performing Organization Address City/[facility]/ZIP Co de Phone Number [address] [address] * (ABNORMAL) GLUCOSE METER POC (05/04/2025 2:55 PM EDT) Glucose Meter POC 116(H) 70 - 100 mg/dL 05/04/2025 2:56 PM EDT [facility] Sample Type Capillary 05/04/2025 2:56 PM EDT [facility] Patient Status Non-Critical Patient 05/04/2025 2:56 PM EDT [facility] Blood BLOOD SPECIMEN / Unknown 05/04/2025 2:55 PM EDT 05/04/2025 2:56 PM EDT Marcell Aguirre MD POINT OF CARE TEST ORDERABLES Final Result Performing Organization Address [facility]/ZIP Co de Phone Number [facility] 1 [place] [address] * ECG AND WAVEFORMS - TELEMETRY (05/04/2025 7:00 AM EDT) ECG INTERPRET Atrial Fib [facility] 05/04/2025 7:00 AM EDT Narrative [facility] - 05/04/2025 8:47 AM EDT RS, ROUTINE, PACS, PVCS QRS 0.08 See Clinical Report link for waveform capture us Unknown Provider POINT OF CARE CARDIOLOGY Final Result Performing Organization Address [facility] Co de Phone Number [facility] 1 [place] [address] * (ABNORMAL) GLUCOSE METER POC (05/03/2025 9:54 PM EDT) [facility] Glucose Meter POC 175(H) 70 - 100 mg/dL 05/03/2025 9:55 PM EDT [facility] Sample Type Capillary 05/03/2025 9:55 PM EDT [facility] Patient Status Non-Critical Patient 05/03/2025 9:55 PM EDT [facility] Blood BLOOD SPECIMEN / Unknown 05/03/2025 9:54 PM EDT 05/03/2025 9:55 PM EDT us Marcell Aguirre MD POINT OF CARE TEST ORDERABLES Final Result Performing Organization Address City/[facility]/ZIP Co de Phone Number [facility] 1 [place] [address] * ECG AND WAVEFORMS - TELEMETRY (05/03/2025 6:59 PM EDT) ECG INTERPRET Sinus Tachycardia [facility] 05/03/2025 6:59 PM EDT Narrative [facility] - 05/03/2025 8:20 PM EDT ROUTINE (CW) QRS 0.06 See Clinical Report link for waveform capture us Unknown Provider POINT OF CARE CARDIOLOGY Final Result Performing Organization Address [facility] Co de Phone Number [facility] 1 [place] [address] * (ABNORMAL) GLUCOSE METER POC (05/03/2025 5:43 PM EDT) [facility] Glucose Meter POC 129(H) 70 - 100 mg/dL 05/03/2025 5:45 PM EDT [facility] Sample Type Capillary 05/03/2025 5:45 PM EDT [facility] Patient Status Non-Critical Patient 05/03/2025 5:45 PM EDT [facility] Blood BLOOD SPECIMEN / Unknown 05/03/2025 5:43 PM EDT 05/03/2025 5:45 PM EDT us Marcell Aguirre MD POINT OF CARE TEST ORDERABLES Final Result Performing Organization Address [facility] Co de Phone Number [facility] 1 [place] [address] * MRI FOOT LEFT WO CONTRAST (05/03/2025 [...] GLUCOSE METER POC (05/03/2025 2:14 PM EDT) [facility] Glucose Meter POC 123(H) 70 - 100 mg/dL 05/03/2025 2:16 PM EDT [facility] Sample Type Capillary 05/03/2025 2:16 PM EDT [facility] Patient Status Non-Critical Patient 05/03/2025 2:16 PM EDT [facility] Blood BLOOD SPECIMEN / Unknown 05/03/2025 2:14 PM EDT 05/03/2025 2:16 PM EDT Marcell Aguirre MD POINT OF CARE TEST ORDERABLES Final Result Performing Organization Address City/[facility]/ZIP Co de Phone Number [facility] 1 [place] [address] * GLUCOSE METER POC (05/03/2025 10:20 AM EDT) [facility] Glucose Meter POC 100 70 - 100 mg/dL 05/03/2025 10:21 AM EDT [facility] Sample Type Capillary 05/03/2025 10:21 AM EDT [facility] Patient Status Non-Critical Patient 05/03/2025 10:21 AM EDT [facility] Blood BLOOD SPECIMEN / Unknown 05/03/2025 10:20 AM EDT 05/03/2025 10:21 AM EDT Marcell Aguirre MD POINT OF CARE TEST ORDERABLES Final Result Performing Organization Address City/[facility] Co de Phone Number [facility] 1 [place] [phone] * ECG AND WAVEFORMS - TELEMETRY (05/03/2025 7:55 AM EDT) Pathologist [facility] ECG INTERPRET Atrial Fib [facility] Comment:with PVCs 05/03/2025 7:55 AM EDT Narrative [facility] - 05/03/2025 8:07 AM EDT KW ROUTINE - PVCS QRS 0.09 See Clinical Report link for waveform capture us Unknown Provider POINT OF CARE CARDIOLOGY Final Result Performing Organization Address City/[facility]/ZIP Co de Phone Number [facility] 1 [place] [address] * HEMOGLOBIN A1C (05/03/2025 6:37 AM EDT) Hgb A1C 5.3 4.2 - 5.6 % 05/05/2025 3:53 PM EDT [facility] [employer], [facility] Est. Avg Glucose 105 mg/dL 05/05/2025 3:53 PM EDT [facility] Blood VENOUS BLOOD / Unknown Venipuncture / Unknown 05/03/2025 6:37 AM EDT 05/03/2025 7:14 AM EDT Narrative [facility] [employer] [facility], [facility] - 05/05/2025 3:53 PM EDT [...] CHEMISTRY ORDERABLES Final Resul t [facility], [address] , [place] [address] * (ABNORMAL) CBC (05/03/2025 6:37 AM EDT) WBC 3.5(L) 3.7 - 10.3 x10(3)/mcL 05/03/2025 7:38 AM EDT [facility] [employer], [facility] RBC 2.19(L) 3.90 - 5.20 x10(6)/mcL 05/03/2025 7:38 AM EDT [facility] Hgb 8.0(L) 11.2 - 15.7 g/dL 05/03/2025 7:38 AM EDT [facility] Hct 25.0(L) 34.0 - 45.0 % 05/03/2025 7:38 AM EDT [facility] MCV 114.2(H) 80.0 - 100.0 fL 05/03/2025 7:38 AM EDT [facility] MCH 36.5(H) 26.0 - 34.0 pg 05/03/2025 7:38 AM EDT [facility] MCHC 32.0 30.7 - 35.5 g/dL 05/03/2025 7:38 AM EDT [facility] RDW 17.7(H) <=14.9 % 05/03/2025 7:38 AM EDT [facility] Platelet 68(L) 155 - 369 x10(3)/mcL 05/03/2025 7:38 AM EDT [facility] MPV 12.3 8.8 - 12.5 fL 05/03/2025 7:38 AM EDT [facility] Blood VENOUS BLOOD / Unknown Venipuncture / Unknown 05/03/2025 6:37 AM EDT 05/03/2025 7:14 AM EDT us Rajendra Cade (Alexandre) Malinda ESCOBEDO HEMATOLOGY NILAM BUTT Final Result [facility] [address] [facility] , [place] [address] * (ABNORMAL) BASIC METABOLIC PANEL (05/03/2025 6:37 [...] mL/min/1.7 3 m2 05/03/2025 8:[address] [facility] Comment:Estimated GFR was ca lculated using the CKD-EPIcr (2020) equation refit without race. The equation is recommended by the [employer] - [place] [employer] Task Force. Blood VENOUS BLOOD / Unknown Venipuncture / Unknown 05/03/2025 6:37 AM EDT 05/03/2025 7:14 AM EDT Donnie Kaur MD CHEMISTRY ORDERABLES Final Result Performing Organization Address City/[facility]/ZIP Co de Phone Number [facility] [address] [facility], [place] [address] * ECG AND WAVEFORMS - TELEMETRY (05/02/2025 11:00 PM EDT) ECG INTERPRET Atrial Fib [facility] 05/02/2025 11:0 0 PM EDT Narrative [facility] - 05/02/2025 11:23 PM EDT NEW ADMIT (MS) QRS 0.16 See Clinical Report link for waveform capture us Unknown Provider POINT OF CARE CARDIOLOGY Final Result Performing Organization Address City/[facility]/ZIP Co de Phone Number [address] [address] * GLUCOSE METER POC (05/02/2025 9:27 PM EDT) Glucose Meter POC 97 70 - 100 mg/dL 05/02/2025 9:29 PM EDT [facility] Sample Type Capillary 05/02/2025 9:29 PM EDT [facility] Patient Status Non-Critical Patient 05/02/2025 9:29 PM EDT [facility] Blood BLOOD SPECIMEN / Unknown 05/02/2025 9:27 PM EDT 05/02/2025 9:29 PM EDT us Marcell Aguirre MD POINT OF CARE TEST ORDERABLES Final Result Performing Organization Address City/[facility]/[place] [address] * (ABNORMAL) GLUCOSE METER POC (05/02/2025 5:04 PM EDT) Glucose Meter POC 172(H) 70 - 100 mg/dL 05/02/2025 5:05 PM EDT [facility] Sample Type Capillary 05/02/2025 5:05 PM EDT [facility] Patient Status Non-Critical Patient 05/02/2025 5:05 PM EDT [facility] Blood BLOOD SPECIMEN / Unknown 05/02/2025 5:04 PM EDT 05/02/2025 5:05 PM EDT us Marcell Aguirre MD POINT OF CARE TEST ORDERABLES Final Result Performing Organization Address [facility] Co de Phone Number [address] [address] * (ABNORMAL) GLUCOSE METER POC (05/02/2025 1:03 PM EDT) Glucose Meter POC 110(H) 70 - 100 mg/dL 05/02/2025 1:04 PM EDT [facility] Sample Type Capillary 05/02/2025 1:04 PM EDT [facility] Patient Status Non-Critical Patient 05/02/2025 1:04 PM EDT [facility] Blood BLOOD SPECIMEN / Unknown 05/02/2025 1:03 PM EDT 05/02/2025 1:04 PM EDT us Marcell Aguirre MD POINT OF CARE TEST ORDERABLES Final Result Performing Organization Address [facility] Co de Phone Number [address] [address] * OK US LOWER EXTREMITY ARTERIAL DUPLEX COMPLETE (05/02/2025 11:07 [...] and unreliable secondary to calcified arterial andino. Jovanni Montesinos APRN IMG VASCULAR ORDERABLES Fin al Result * (ABNORMAL) CBC (05/02/2025 8:31 AM EDT) [facility] WBC 3.8 3.7 - 10.3 x10(3)/mcL 05/02/2025 8:57 AM EDT [facility] RBC 2.23(L) 3.90 - 5.20 x10(6)/mcL 05/02/2025 8:57 AM EDT [facility] Hgb 8.2(L) 11.2 - 15.7 g/dL 05/02/2025 8:57 AM EDT [facility] Hct 25.2(L) 34.0 - 45.0 % 05/02/2025 8:57 AM EDT [facility] MCV 113.0(H) 80.0 - 100.0 fL 05/02/2025 8:57 AM EDT [facility] MCH 36.8(H) 26.0 - 34.0 pg 05/02/2025 8:57 AM EDT [facility] MCHC 32.5 30.7 - 35.5 g/dL 05/02/2025 8:57 AM EDT [facility] RDW 17.5(H) <=14.9 % 05/02/2025 8:57 AM EDT [facility] Platelet 81(L) 155 - 369 x10(3)/[facility] 05/02/2025 8:57 AM EDT [facility] MPV 12.6(H) 8.8 - 12.5 fL 05/02/2025 8:57 AM EDT [facility] Blood VENOUS BLOOD / Unknown Venipuncture / Unknown 05/02/2025 8:31 AM EDT 05/02/2025 8:36 AM EDT us Rajendra Cade (Alexandre) Malinda ESCOBEDO HEMATOLOGY NILAM BUTT Final Result [facility] [address] [facility] , [address] [place] [id number] * (ABNORMAL) BASIC METABOLIC PANEL (05/02/2025 8:30 AM EDT) [facility] Sodium 137 136 - 145 mmol/L 05/02/2025 9:21 AM EDT [facility] Potassium 3.9 3.5 - 5.0 mmol/L 05/02/2025 9:21 AM EDT [facility] Chloride 104 98 - 107 mmol/L 05/02/2025 9:21 AM EDT [facility] Total CO2 23 22 - 29 mmol/L 05/02/2025 9:21 AM EDT [facility] Anion Gap 10 7 - 16 mmol/L 05/02/2025 9:21 AM EDT [facility] Calcium 8.3(L) 8.8 - 10.4 mg/dL 05/02/2025 9:21 AM EDT [facility] Glucose Lvl 111(H) 70 - 99 mg/dL 05/02/2025 9:21 AM EDT [facility] BUN 27(H) 8 - 23 mg/dL 05/02/2025 9:21 AM EDT [facility] Creatinine 0.96 0.51 - 1.30 mg/dL 05/02/2025 9:21 AM EDT [facility] eGFR (CKD-EPIcr 2020) 58(L) >=60 mL/min/1.7 3 m2 05/02/2025 9:21 AM EDT [facility] Comment:Estimated GFR was ca lculated using the CKD-EPIcr (2020) equation refit without race. The equation is recommended by the National Kid[employer] - [place] [employer] Neph[employer] Task Force. Blood VENOUS BLOOD / Unknown Venipuncture / Unknown 05/02/2025 8:30 AM EDT 05/02/2025 8:36 AM EDT Donnie Kaur MD CHEMISTRY ORDERABLES Final Result [facility] [address] [facility] , [place] [address] * ECG AND WAVEFORMS - TELEMETRY (05/02/2025 8:06 AM EDT) ECG INTERPRET Atrial Fib [facility] Comment:Controlled 05/02/2025 8:06 AM EDT Narrative [facility] - 05/02/2025 8:10 AM EDT ROUTINE//AC See Clinical Report link for waveform capture us Unknown Provider POINT OF CARE CARDIOLOGY Final Result Performing Organization Address City/[facility]/ZIP Co de Phone Number [facility] [address] [place] [address] * (ABNORMAL) GLUCOSE METER POC (05/01/2025 9:05 PM EDT) Glucose Meter POC 145(H) 70 - 100 mg/dL 05/01/2025 9:07 PM EDT [facility] Sample Type Capillary 05/01/2025 9:07 PM EDT [facility] Patient Status Non-Critical Patient 05/01/2025 9:07 PM EDT [facility] Blood BLOOD SPECIMEN / Unknown 05/01/2025 9:05 PM EDT 05/01/2025 9:07 PM EDT us Marcell Aguirre MD POINT OF CARE TEST ORDERABLES Final Result Performing Organization Address City/[facility]/ZIP Co de Phone Number [facility] [address] [place] [address] * ECG AND WAVEFORMS - TELEMETRY (05/01/2025 7:56 PM EDT) ECG INTERPRET Atrial Fib [facility] 05/01/2025 7:56 PM EDT Narrative [facility] - 05/01/2025 7:57 PM EDT ROUTINE/MS QRS 0.09 See Clinical Report link for waveform capture us Unknown Provider POINT OF CARE CARDIOLOGY Final Result Performing Organization Address City/[facility]/ZIP Co de Phone Number [facility] [address] [place] [address] * (ABNORMAL) GLUCOSE METER POC (05/01/2025 4:53 PM EDT) Glucose Meter POC 188(H) 70 - 100 mg/dL 05/01/2025 4:55 PM EDT [facility] Sample Type Capillary 05/01/2025 4:55 PM EDT [facility] Patient Status Non-Critical Patient 05/01/2025 4:55 PM EDT [facility] Blood BLOOD SPECIMEN / Unknown 05/01/2025 4:53 PM EDT 05/01/2025 4:55 PM EDT us Marcell Aguirre MD POINT OF CARE TEST ORDERABLES Final Result Performing Organization Address City/[facility]/[place] [address] * GLUCOSE METER POC (05/01/2025 11:21 AM EDT) Glucose Meter POC 100 70 - 100 mg/dL 05/01/2025 11:22 AM EDT [facility] Sample Type Capillary 05/01/2025 11:22 AM EDT [facility] Patient Status Non-Critical Patient 05/01/2025 11:22 AM EDT [facility] Blood BLOOD SPECIMEN / Unknown 05/01/2025 11:21 AM EDT 05/01/2025 11:22 AM EDT us Marcell Aguirre MD POINT OF CARE TEST ORDERABLES Final Result Performing Organization Address [facility] [place] [address] * (ABNORMAL) GLUCOSE METER POC (05/01/2025 9:10 AM EDT) Glucose Meter POC 101(H) 70 - 100 mg/dL 05/01/2025 9:11 AM EDT [facility] Sample Type Capillary 05/01/2025 9:11 AM EDT [facility] Patient Status Non-Critical Patient 05/01/2025 9:11 AM EDT [facility] Blood BLOOD SPECIMEN / Unknown 05/01/2025 9:10 AM EDT 05/01/2025 9:11 AM EDT us Marcell Aguirre MD POINT OF CARE TEST ORDERABLES Final Result [facility] 1 [place] [address] * (ABNORMAL) CBC (05/01/2025 7:57 AM EDT) [...] EDT 05/01/2025 8:01 AM EDT us Rajendra Browning) Malinda ESCOBEDO HEMATOLOGY NILAM BUTT Final Result [facility] [address] [facility] , [place] [address] * ECG AND WAVEFORMS - TELEMETRY (05/01/2025 7:00 AM EDT) ECG INTERPRET Atrial Fib [facility] Comment:controlled 05/01/2025 7:00 AM EDT Narrative [facility] - 05/01/2025 9:27 AM EDT ROUTINE SDP QRS 0.08 QT 0.36 See Clinical Report link for waveform capture us Unknown Provider POINT OF CARE CARDIOLOGY Final Result [facility] 1 [place] [address] * (ABNORMAL) BASIC METABOLIC PANEL (05/01/2025 6:21 [...] recommended by the National Kidney [employer] - [place] [employer] of Nephrology Task Force. Blood VENOUS BLOOD / Unknown Venipuncture / Unknown 05/01/2025 6:21 AM EDT 05/01/2025 6:26 AM EDT us Donnie Kaur MD CHEMISTRY ORDERABLES Final Result Performing Organization Address City/[facility]/ZIP Co de Phone Number [facility], [address], [place] [address] * ECG AND WAVEFORMS - TELEMETRY (05/01/2025 5:12 AM EDT) ECG INTERPRET Atrial Fib [facility] 05/01/2025 5:12 AM EDT Narrative [facility] - 05/01/2025 5:13 AM EDT W/PVC'S/ROUTINE/JF QRS 0.11 See Clinical Report link for waveform capture us Unknown Provider POINT OF CARE CARDIOLOGY Final Result Performing Organization Address [facility] de Phone Number [facility] 1 [place] [address] * ECG AND WAVEFORMS - TELEMETRY (04/30/2025 11:29 PM EDT) ECG INTERPRET Sinus Tachycardia [facility] 04/30/2025 11:2 9 PM EDT Narrative [facility] - 04/30/2025 11:31 PM EDT NEW ADMIT/JF CT 0.11 QRS 0.08 RR 0.47 QT 0.28 QTc 0.41 See Clinical Report link for waveform capture us Unknown Provider POINT OF CARE CARDIOLOGY Final Result Performing Organization Address [facility] Co de Phone Number [facility] [address] [place] [phone] * (ABNORMAL) GLUCOSE METER POC (04/30/2025 10:09 PM EDT) Glucose Meter POC 117(H) 70 - 100 mg/dL 04/30/2025 10:11 PM EDT [facility] Sample Type Capillary 04/30/2025 10:11 PM EDT [facility] Patient Status Non-Critical Patient 04/30/2025 10:11 PM EDT [facility] Blood BLOOD SPECIMEN / Unknown 04/30/2025 10:09 PM EDT 04/30/2025 10:11 PM EDT us Marcell Aguirre MD POINT OF CARE TEST ORDERABLES Final Result Performing Organization Address City/[facility]/[place] [address] * REPEAT LACTIC ACID (04/30/2025 7:30 PM EDT) Lactic Acid 1.3 0.5 - 1.9 mmol/L 04/30/2025 8:06 PM EDT [facility] Blood VENOUS BLOOD / Unknown Venipuncture / Unknown 04/30/2025 7:30 PM EDT 04/30/2025 7:57 PM EDT us Donnie Kaur MD CHEMISTRY ORDERABLES Final Result Performing Organization Address City/[facility]/ZIP Co de Phone Number [address] [address] * (ABNORMAL) BLOOD GAS, VENOUS (04/30/2025 5:56 [...] mmol/L 04/30/2025 6:05 PM EDT [facility] CO2 Total Martín 24(L) 25 - 29 mmol/L 04/30/2025 6:05 PM EDT [facility] O2 Sat. Venous 20.2(L) 40.0 - 70.0 % 04/30/2025 6:05 PM EDT [facility] Inspired O2 RA 04/30/2025 6:05 PM EDT [facility] Blood VENOUS BLOOD / Unknown Venipuncture / Unknown 04/30/2025 5:56 PM EDT 04/30/2025 6:03 PM EDT Donnie Kaur MD CHEMISTRY ORDERABLES Final Result Performing Organization Address [facility] Co de Phone Number [address] , [place] [address] * BLOOD CULTURE (NO STAIN) (04/30/2025 5:56 PM EDT) Culture Result No Growth at 120 hours. BLOOD CULTURE (NO STAIN) 05/06/2025 7:00 AM EDT [facility] Blood VENOUS BLOOD / Unknown Venipuncture / Unknown 04/30/2025 5:56 PM EDT 04/30/2025 6:01 PM EDT Donnie Kaur MD MICROBIOLOGY - GENERA L ORDERABLES Final Result Performing Organization Address [facility] Co de Phone Number [address] , [place] [address] * BLOOD CULTURE (NO STAIN) (04/30/2025 5:56 PM EDT) Culture Result No Growth at 120 hours. BLOOD CULTURE (NO STAIN) 05/06/2025 7:00 AM EDT [facility] Blood VENOUS BLOOD / Unknown Venipuncture / Unknown 04/30/2025 5:56 PM EDT 04/30/2025 6:03 PM EDT Donnie Kaur MD MICROBIOLOGY - GENERA L ORDERABLES Final Result [employer] [address] [facility] , [place] [address] * XR FOOT LEFT AP LATERAL AND [...] <=5.00 mg/L 04/30/2025 6:08 PM EDT [facility] VENOUS BLOOD / Unknown Venipuncture / Unknown 04/30/2025 5:15 PM EDT 04/30/2025 5:29 PM EDT us Donnie Kaur MD CHEMISTRY ORDERABLES Final Result [facility] [address] [facility] [address], [place] [address] * SEDIMENTATION RATE AUTOMATED (04/30/2025 5:15 PM EDT) Sed Rate 9 0 - 30 mm/hr 04/30/2025 5:42 PM EDT [facility] VENOUS BLOOD / Unknown Venipuncture / Unknown 04/30/2025 5:15 PM EDT 04/30/2025 5:29 PM EDT Donnie Kaur MD HEMATOLOGY ORDERABLES Final Result [facility] [address] [facility] , [place] [address] * PROCALCITONIN (04/30/2025 5:15 PM EDT) Procalcitonin <0.05 <=0.49 ng/mL 04/30/2025 6:15 PM EDT [facility] VENOUS BLOOD / Unknown Venipuncture / Unknown 04/30/2025 5:15 PM EDT 04/30/2025 5:29 PM EDT Narrative [facility] - 04/30/2025 6:15 PM EDT Procalcitonin <0.50 [...] CHEMISTRY ORDERABLES Final Result Performing Organization Address City/[facility]/ZIP Co de Phone Number [facility] [place] [address] [facility], [place] [address] * (ABNORMAL) LACTIC ACID (04/30/2025 5:15 PM EDT) Pathologist [facility] Lactic Acid 2.3(H) 0.5 - 1.9 mmol/L 04/30/2025 5:39 PM EDT [facility] Blood VENOUS BLOOD / Unknown Venipuncture / Unknown 04/30/2025 5:15 PM EDT 04/30/2025 5:25 PM EDT us Donnie Kaur MD CHEMISTRY ORDERABLES Final Result Performing Organization Address [facility] Co de Phone Number [facility] 1 [place] [address] * (ABNORMAL) COMPREHENSIVE METABOLIC PANEL (04/30/2025 5:15 PM EDT) Pathologist [facility] Sodium 136 136 - 145 mmol/L 04/30/2025 5:43 PM EDT [facility] Potassium 4.1 3.5 - 5.0 mmol/L 04/30/2025 5:43 PM EDT [facility] Chloride 101 98 - 107 mmol/L 04/30/2025 5:43 PM EDT [facility] Total CO2 21(L) 22 - 29 mmol/L 04/30/2025 5:43 PM EDT [facility] Anion Gap 14 7 - 16 mmol/L 04/30/2025 5:43 PM EDT [facility] Calcium 8.6(L) 8.8 - 10.4 mg/dL 04/30/2025 5:43 PM EDT [facility] Glucose Lvl 119(H) 70 - 99 mg/dL 04/30/2025 5:43 PM EDT [facility] BUN 36(H) 8 - 23 mg/dL 04/30/2025 5:43 PM EDT [facility] Creatinine 1.05 0.51 - 1.30 mg/dL 04/30/2025 5:43 PM EDT [facility] Albumin 3.9 3.2 - 4.6 gm/dL 04/30/2025 5:43 PM EDT [facility] Total Protein 7.5 6.4 - 8.3 gm/dL 04/30/2025 5:43 PM EDT [facility] Bili Total 0.7 0.2 - 1.3 mg/dL 04/30/2025 5:43 PM EDT [facility] ALT 16 <=41 U/L 04/30/2025 5:43 PM EDT [facility] AST 18 <=40 U/L 04/30/2025 5:43 PM EDT [facility] Alk Phos 96 36 - 123 U/L 04/30/2025 5:43 PM EDT [facility] eGFR (CKD-EPIcr 2020) 52(L) >=60 mL/min/1.7 3 m2 04/30/2025 5:43 PM EDT [facility] Comment:Estimated GFR was ca lculated using the CKD-EPIcr (2020) equation refit without race. The equation is recommended by the [employer] Kid[employer] - [place] [employer] of Nephrology Task Force. Blood VENOUS BLOOD / Unknown Venipuncture / Unknown 04/30/2025 5:15 PM EDT 04/30/2025 5:25 PM EDT us Donnie Kaur MD CHEMISTRY ORDERABLES Final Result [facility] [address] [place] [address] * (ABNORMAL) CBC WITH DIFF (04/30/2025 5:15 PM EDT) WBC 5.1 3.7 - 10.3 x10(3)/mcL 04/30/2025 5:29 PM EDT [facility] RBC 2.64(L) 3.90 - 5.20 x10(6)/mcL 04/30/2025 5:29 PM EDT [facility] Hgb 10.0(L) 11.2 - 15.7 g/dL 04/30/2025 5:29 PM EDT [facility] Hct 30.5(L) 34.0 - 45.0 % 04/30/2025 5:29 PM EDT [facility] MCV 115.5(H) 80.0 - 100.0 fL 04/30/2025 5:29 PM EDT [facility] MCH 37.9(H) 26.0 - 34.0 pg 04/30/2025 5:29 PM EDT [facility] MCHC 32.8 30.7 - 35.5 g/dL 04/30/2025 5:29 PM EDT [facility] RDW 17.6(H) <=14.9 % 04/30/2025 5:29 PM EDT [facility] Platelet 108(L) 155 - 369 x10(3)/mcL 04/30/2025 5:29 PM EDT [facility] MPV 12.3 8.8 - 12.5 fL 04/30/2025 5:29 PM EDT [facility] Neut Percent 56.9 % 04/30/2025 5:29 PM EDT [facility] Comment:Neutrophils equals s egs plus bands Imm Gran% 0.4 % 04/30/2025 5:29 PM EDT [facility] Comment:Automated count of m etamyelocytes, myelocytes and promyelocytes. Lymph Percent 33.9 % 04/30/2025 5:29 PM EDT [facility] Moca Percent 8.6 % 04/30/2025 5:29 PM EDT [facility] Eos Percent 0.0 % 04/30/2025 5:29 PM EDT [facility] Baso Percent 0.2 % 04/30/2025 5:29 PM EDT [facility] Neut # 2.9 1.6 - 6.1 x10(3)/mcL 04/30/2025 5:29 PM EDT [facility] Comment:Neutrophils equals s egs plus bands IMMGRAN# 0.0 0.0 - 0.1 x10(3)/mcL 04/30/2025 5:29 PM EDT [facility] Comment:Automated count of m etamyelocytes, myelocytes and promyelocytes. An absolute IG <0.1 is reported as 0.0. Lymph # 1.7 1.2 - 3.9 x10(3)/[facility] 04/30/2025 5:29 PM EDT [facility] Moca # 0.4 0.3 - 0.9 x10(3)/[facility] 04/30/2025 5:29 PM EDT [facility] Eos# 0.0 0.0 - 0.5 x10(3)/[facility] 04/30/2025 5:29 PM EDT [facility] Baso # 0.0 0.0 - 0.1 x10(3)/[facility] 04/30/2025 5:29 PM EDT [facility] Blood VENOUS BLOOD / Unknown Venipuncture / Unknown 04/30/2025 5:15 PM EDT 04/30/2025 5:25 PM EDT us Donnie Kaur MD HEMATOLOGY ORDERABLES Final Result Performing Organization Address City/State/[facility] [place] [address] * EK EKG 12 LEAD (04/30/2025 4:18 PM EDT) Anatomical Region Laterality Modality Electrocardiogra phy 04/30/2025 4:28 PM EDT Impressions 04/30/2025 10:[address] [facility] Test Date: 2025-04-30 Pat Name: SKYLER NICOLEVAN Department: DEPID Room: [facility] Gender: Female R[place]: CHANTEL : 1940 Requested By: DONNIE PLUMMER Order Number: [id number] Reading MD: Isidro Kennedy Measurements Intervals [place] Rate: 134 P: 203 CT: 145 QRS: -6 QRSD: 93 T: -78 QT: 333 QTc: 499 Interpretive Statements SINUS TACHYCARDIA NONSPECIFIC ST & T-WAVE ABNORMALITY Electronically Signed On 04-30-2025 22:14:02 EDT by Isidro Kennedy Narrative Procedure Note Isidro Kennedy MD - 04/30/[address] 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 Coronary atherosclerosis of campo coronary artery Type 2 diabetes mellitus, without long-term current use of insulin (HCC) Wound dehiscence Disruption of external operation (surgical) wound Anemia in other chronic diseases classified elsewhere Palliative care by specialist Goals of care, counseling/discussion Other specified counseling Critical limb ischemia of left lower extremity (HCC) Pancytopenia (HCC) Other pancytopenia Preop testing- Primary Preoperative examination, unspecified Anemia, unspecified type PAD (peripheral artery disease) Unspecified disorders of arteries and arterioles Critical limb ischemia of left lower extremity (HCC) PAD (peripheral artery disease) Unspecified disorders [...] MAR Action Action Date Dose Rate Site acetaminophen (TYLENOL) suppository 650 mg 650 mg, Rectal, EVERY 4 HOURS PRN, Starting on Tue05/26/25 at 1551, Until Tue06/10/25 at 2011, Pain, Fever, Temp greater than 102 F, Maximum adult dose of acetaminophen is 4000 mg from all sources in 24 hours. acetaminophen (TYLENOL) tablet 650 mg 650 mg, [...] PM EDT 650 mg ALPRAZolam (XanAX) tablet 0.5 mg 0.5 mg, Oral, 2 TIMES DAILY PRN, Starting on Tue05/29/25 at 1122, Until Tue06/10/25 at 2011, Anxiety, Sleep Given 06/09/2025 8:49 PM EDT 0.5 mg alteplase (ACTIVASE) injection 1 mg 1 [...] of 2 mg. Contact pharmacy for dose. atorvastatin (LIPITOR) tablet 40 mg 40 mg, Oral, NIGHTLY, First dose on Tue04/30/25 at 2300, Until Discontinued Given 06/09/2025 8:37 PM EDT 40 mg carvediloL (COREG) tablet 25 mg 25 mg, Oral, 2 TIMES DAILY WITH MEALS, First dose (after last modification) on Tue06/04/25 at 1800, Until Discontinued, Hold for SBP<100 or HR<60 Take with a meal. Given 06/10/2025 9:03 AM EDT 25 mg ceFAZolin 1 g in sodium chloride 0.9% 500 mL irrigation 500 mL, Irrigation, ONCE INTRAPROCEDURE, 1 dose, On Tue05/24/25 at 0600, Surgical use only. Not for intravenous injection, Intra-op Given 05/24/2025 8:35 AM EDT 1 g dextrose 50 % solution 25 mL 25 [...] 2011, Constipation, Do not crush or chew. dorzolamide-timoloL (COSOPT) 22.3-6.8 mg/mL ophthalmic solution 1 Drop 1 Drop, Ophthalmic, 2 TIMES DAILY, First dose on Tue04/30/25 at 2300, Until Discontinued Given 06/10/2025 9:06 AM EDT 1 Drop Both Eyes fUROsemide (LASix) tablet 40 mg 40 mg, [...] Given 06/10/2025 2:34 PM EDT 300 mg glucagon (GLUCAGEN) injection 1 mg 1 [...] Given 06/10/2025 9:06 AM EDT 1 'box' latanoprost (XALATAN) 0.005 % ophthalmic solution 1 [...] 9:05 AM EDT 1 Patch Left Leg miconazole (MICATIN) 2 % powder Topical, 2 TIMES DAILY, 84 doses, First dose on Tue06/06/25 at 2100, Last dose on Tue07/18/25 at 0900, Application site: ana area Given 06/10/2025 9:05 AM EDT morphine injection 2 mg 2 mg, Intravenous, EVERY 4 HOURS PRN, Starting on Tue06/09/25 at 0617, Until Tue06/10/25 at 2011, Breakthrough Pain Given 06/10/2025 6:50 AM EDT 2 mg nortriptyline (PAMELOR) capsule 10 mg 10 mg, Oral, NIGHTLY, First dose on Tue06/05/25 at 2100, Until Discontinued Given 06/09/2025 8:36 PM EDT 10 mg oxyCODONE (ROXICODONE) immediate release tablet 5-10 mg 5-10 mg, Oral, EVERY 4 HOURS PRN, Starting on Tue06/07/25 at 1227, Until Tue06/10/25 at 2012, Pain Unrelieved by Oral Non-Opioid Therapy Given 06/10/2025 3:11 PM EDT 10 mg pantoprazole (PROTONIX) tablet 40 mg 40 mg, Oral, 2 TIMES DAILY, First dose on Tue05/31/25 at 2100, Until Discontinued, Do not crush or chew Given 06/10/2025 9:03 AM EDT 40 mg polyethylene glycol (GLYCOLAX, MIRALAX) packet 17 g 17 g, Oral, 2 TIMES DAILY PRN, Starting on Tue05/15/25 at 1001, Until Tue06/10/25 at 2011, Constipation Given 05/17/2025 10:57 PM EDT 17 g ranolazine (RANEXA) SR tablet 1,000 mg 1,000 mg, Oral, DAILY, First dose on Tue05/01/25 at 0900, Until Discontinued, Do Not Crush Given 06/10/2025 9:03 AM EDT 1,000 mg sodium chloride 0.9% IV line flush 20-50 [...] PM EDT 150 mL/hr sodium chloride 0.9% syringe Intravenous, PRN, Starting on Tue05/26/25 at 1751, Until Tue06/10/25 at 2011, Line Care, *Not to be used for red and blue lumen on dialysis catheters* Flush with 5-10 mL saline pre/post IVP, 10 mL prior to IVPB or blood product administration, and 20 mL post blood draws for CENTRAL lines. sterile water injection 1 mL 1 mL, Injection, PRN, Starting on Tue05/28/25 at 2311, Until Tue06/10/25 at 2011, Use for drug dilution, Use to dilute and administer glucagon injection documented in this encounter Discontinued Medications Medication [...] 02/04/2025 06/10/2025 nalOXone (NARCAN) 4 mg/actuation Nasl [place], Non-Aerosol 0.1 mL by Nasal route as needed for Opioid Reversal. [place] the contents of one device (0.1mL) into [...] hours. 1334 (Given - Provider: Shannon Owens RN)2037 (Given - Provider: Dylan Chowdhury RN) 0903 (Given - Provider: Marisa Garrett RN)1434 (Given - Provider: Marisa Garrett RN) atorvastatin (LIPITOR) tablet 40 mg 40 mg, Oral, NIGHTLY, First dose on Tue04/30/25 at 2300, Until Discontinued 2026 (Given - Provider: Binta Mcdowell RN) 2036 (Given - Provider: Dylan Chowdhury, [...] RN)174 (Given - Provider: Shannon Owens RN) 0903 (Given - Provider: Marisa Garrett RN) dorzolamide-timoloL [...] dose on Tue06/05/25 at 1100, Until Discontinued 09 (Given - Provider: Diony Valdez RN) 0932 [...] RN) 0932 (Given - Provider: Shannon Owens RN)1334 (Given - Provider: Shannon Owens RN)2036 (Given - Provider: Dylan Chowdhury RN) 0903 (Given - Provider: Marisa Garrett, MAHENDRA)1434 (Given - Provider: Marisa Garrett, MAHENDRA) GLUCERNA Therapeutic oral supplement 1 'box' 1 'box', Oral, EVERY MORNING (NUTR), First dose (after last modification) on Tue05/15/25 at 0900, Until Discontinued, strawberry Administer orally. Do not administer if NPO or on clear liquid diet. Not for IV use. Supplied by [facility] 09 (Given - Provider: Diony Valdez RN) 09 [...] RN) 0905 (Patch Applied - Provider: Marisa Garrett RN)1606 (Due: Patch Removed - Provider: Automatic Discharge Provider - Comment: Time automatically adjusted from order being discontinued) miconazole (MICATIN) 2 % powder Topical, 2 TIMES DAILY, 84 doses, First dose on Tue06/06/25 at 2100, Last dose on Tue07/18/25 at 0900, Application site: ana area 09 (Given - Provider: Diony Valdez RN)2032 (Given - Provider: Binta Mcdowell RN) 09 (Given - Provider: Shannon Owens RN)2038 (Given - Provider: Dylan Chowdhury RN) 0905 (Given - Provider: Marisa Garrett, MAHENDRA) nortriptyline (PAMELOR) capsule 10 mg 10 mg, Oral, NIGHTLY, First dose on Tue06/05/25 at 2100, Until Discontinued 2026 (Given - Provider: Binta Mcdowell RN) 2035 (Given - Provider: Dylan Chowdhury RN) pantoprazole (PROTONIX) tablet 40 mg(Linked Group 1) 40 mg, Oral, 2 TIMES DAILY, First dose on Tue05/31/25 at 2100, Until Discontinued, Do not crush or chew 09 (Given - Provider: Diony Valdez, MAHENDRA)2026 (Given - Provider: Binta Mcdowell, RN) 0932 (Given - Provider: Shannon Owens RN)2036 (Given - Provider: Dylan Chowdhury RN) 0903 (Given - Provider: Marisa Garrett, MAHENDRA) ranolazine (RANEXA) SR tablet 1,000 mg 1,000 mg, Oral, DAILY, First dose on Tue05/01/25 at 0900, Until Discontinued, Do Not Crush 0906 (Given - Provider: Diony Valdez RN) 0932 (Given - Provider: Shannon Owens, MAHENDRA) 0903 (Given - Provider: Marisa Garrett RN) PRN Medication Order 06/08/2025 06/09/2025 06/10/2025 acetaminophen [...] hours. 0445 (Given - Provider: Amna Ferris, MAHENDRA)1248 (Given - Provider: Diony Valdez RN) ALPRAZolam [...] 0617, Until Tue06/10/25 at 2011, Breakthrough Pain 06 (Given - Provider: Binta Mcdowell RN)2048 (Given [...] Binta Mcdowell, MAHENDRA)1131 (Given - Provider: Shannon Owens RN)1754 (Given - Provider: Shannon Owens RN) 0459 [...] chloride 0.9% syringe Intravenous, PRN, Starting on 05/26/25 at 1751, Until [...] Count Last Ordered Date First Ordered Date acetaminophen (TYLENOL) tablet 650 mg 4 04/30/2025 lidocaine (ASPERCREME) 4 % patch 1 Patch 1 06/09/2025 morphine injection 2 mg 4 06/09/2025 0702/2025 oxyCODONE (ROXICODONE) immed iate release tablet 10 mg 2 06/08/2025 05/01/2025 oxyCODONE (ROXICODONE) immed iate release tablet 5-10 mg 1 06/07/2025 miconazole (MICATIN) 2 % powder 1 fUROsemide (LASix) tablet 40 mg 1 nortriptyline (PAMELOR) capsule 10 mg 1 carvediloL (COREG) tablet 25 mg 1 fUROsemide (LASix) injection 40 mg 3 202405/26/2025 carvediloL (COREG) tablet 12.5 mg 2 025 04/30/2025 potassium chloride (KLOR-CON ) tablet 20 mEq 2 06/03/2025 06/02/2025 fUROsemide (LASix) injection 20 mg 2 202406/01/2025 pantoprazole (PROTONIX) 40 m g in sodium chloride 0.9% 10 mL injection 2 05/31/2025 05/26/2025 pantoprazole (PROTONIX) tablet 40 mg 2 05/1704/30/2025 0.9 % NaCl infusion 3 05/29/2025 05/26/20 ALPRAZolam (XanAX) tablet 0.5 mg 3 05/29/20 25 04/30/2025 aluminum & magnesium hydroxi de-simethicone 200-200-20 mg/5 mL suspension 30 mL 1 05/29/2025 diphenhydrAMINE (BENADRYL) tablet 25-50 mg 1 05/29/2025 gabapentin (NEURONTIN) capsule 300 mg 4 04/30/2025 iopamidoL (ISOVUE-370) 370 m g iodine /mL (76 %) injection (LOW) 75 mL 1 05/29/2025 lidocaine (XYLOCAINE) 2 % vi scous solution 15 mL 1 05/29/2025 Magic Cup Dessert oral supplement 1 Each 1 05/29/2025 morphine injection 4-8 mg 2 05/29/2025 sodium chloride 0.9% syringe 10 mL 2 202405/26/2025 ALPRAZolam (XanAX) tablet 0.25 mg 2 025 05/24/2025 dextrose 50 % solution 25 mL 4 05/28/2025 04/30/2025 glucagon (GLUCAGEN) injection 1 mg 4 202404/30/2025 HYDROmorphone 0.2 mg/mL MASONRY SUPERVISOR syringe - 30 mL 2 05/28/2025 insulin aspart U-100 (NovoLO G) injection 1-10 Units 2 05/28/2025 04/30/2025 metoclopramide HCl (REGLAN) injection 5 mg 1 05/28/2025 naloxone (NARCAN) injection 0.2 mg 1 2024 ondansetron (ZOFRAN) injection 4 mg 3 05/2805/24/2025 oxyCODONE (ROXICODONE) immed iate release tablet 5-15 mg 1 05/28/2025 potassium chloride (KLOR-CON ) tablet 40 mEq 1 05/28/2025 sterile water injection 1 mL 4 05/28/2025 04/30/2025 fentaNYL (SUBLIMAZE) injection 50 mcg 1 08/2025 oxyCODONE (OXY-IR) immediate release tablet 15 mg 2 05/27/2025 05/15/2025 oxyCODONE (ROXICODONE) immed iate release tablet 5 mg 4 05/27/2025 04/30/2025 vancomycin (VANCOCIN) 750 mg in sodium chloride 0.9 % 275 mL IVPB 1 05/27/2025 acetaminophen (OFIRMEV) infusion 1,000 mg 3 05/26/2025 05/24/2025 acetaminophen (TYLENOL) suppository 650 mg 1 05/26/2025 alteplase (ACTIVASE) injection 1 mg 1 05/26 atropine injection 1 mg 1 05/26/2025 cosyntropin (CORTROSYN) 0.25 mg in sodium chloride 0.9% 2 mL injection 1 05/26/2025 ICU Electrolyte Replacement - Calcium 1 07/2025 ICU Electrolyte Replacement - Magnesium 1 0 05/26/2025 ICU Electrolyte Replacement - Phosphate 1 0 05/26/2025 ICU Electrolyte Replacement - Potassium 1 0 05/26/2025 insulin aspart U-100 (NovoLO G) injection 0-40 Units 1 05/26/2025 Insulin Calculator (CONTINGENTS SUPERVISOR) - FSBS (Correction Only) Input 1 05/26/2025 mupirocin (BACTROBAN) 2 % ointment 1 2024 piperacillin-tazobactam in d extrose (ZOSYN) IVPB 3.375 g 1 05/26/2025 potassium, sodium phosphates (PHOS-NAK) 280-160-250 mg packet 1 Packet 1 05/26/2025 sodium chloride 0.9 % 250 mL IV bolus 1 07/2025 sodium chloride 0.9% IV line flush 20-50 mL 1 05/26/2025 sodium chloride 0.9% IV line flush for blood products 40-100 mL 3 05/26/2025 05/24/2025 sodium chloride 0.9% syringe 1 05/26/2025 sodium phosphate 10 mmol in dextrose 5% 150 mL IVPB 1 05/26/2025 vancomycin in dextrose 5% (V ANCOCIN) premix IVPB 1,000 mg 2 05/26/2025 04/30/2025 vancomycin intermittent dosing 1 05/26/2025 bupivacaine (MARCAINE/SENSOR MARS) 0.5 % (5 mg/mL) injection 5-30 mL 1 05/24/2025 cyclobenzaprine (FLEXERIL) tablet 5 mg 1 droPERidol (INAPSINE) injection 0.625 mg 1 05/24/2025 fentaNYL (SUBLIMAZE) injection 100 mcg 1 fentaNYL (SUBLIMAZE) injection 25 mcg 1 05/2025 HYDROmorphone (DILAUDID) injection 0.25 mg 1 05/24/2025 HYDROmorphone (DILAUDID) injection 0.5 mg 1 05/24/2025 magnesium sulfate in dextros e 5% infusion 1 g 1 05/24/2025 ondansetron (ZOFRAN-ODT) dis integrating tablet 8 mg 1 05/24/2025 acetaminophen (TYLENOL) tablet 1,000 mg 3 0 05/23/2025 05/07/2025 ALPRAZolam (XanAX) tablet 0.5-1 mg 2 2024 aprepitant (EMEND) capsule 40 mg 2 05/23/20 25 05/20/2025 ceFAZolin (ANCEF) IVPB 2 g 1 05/23/2025 lactated ringers infusion 3 05/23/2025 latanoprost (XALATAN) 0.005 % ophthalmic solution 1 Drop 2 05/21/2025 04/30/2025 docusate sodium (COLACE) capsule 100 mg 3 0 05/20/2025 05/14/2025 senna (SENOKOT) tablet 17.2 mg 1 05/18/2025 senna (SENOKOT) tablet 8.6 mg 2 05/18/2025 05/13/2025 SMOG enema 1 05/17/2025 docusate sodium (COLACE) capsule 200 mg 1 0 05/15/2025 gabapentin (NEURONTIN) capsule 400 mg 1 lactulose (CHRONULAC) 10 gra m/15 mL solution 30 g 1 05/15/2025 polyethylene glycol (GLYCOLA X, MIRALAX) packet 17 g 1 05/15/2025 GLUCERNA Therapeutic oral valentine pplement 1 'box' 2 05/14/2025 05/01/2025 CRISTINE powder oral supplement 1 Packet 1 LORazepam (ATIVAN) tablet 0.5 mg 2 05/01/20 25 04/30/2025 metFORMIN (GLUCOPHAGE) tablet 500 mg 1 04/16 atorvastatin (LIPITOR) tablet 40 mg 1 04/30 ceFEPIme (MAXIPIME) 2 g in s terile water 19 mL IVP 1 04/30/2025 ceFEPIme (MAXIPIME) 2 g/100 mL IVPB 2 04/30 dorzolamide-timoloL (COSOPT) 22.3-6.8 mg/mL ophthalmic solution 1 Drop 1 04/30/2025 metroNIDAZOLE (FLAGYL) IVPB 500 mg 1 2024 morphine injection 3-4 mg 1 04/30/2025 ranolazine (RANEXA) SR tablet 1,000 mg 1 sodium chloride 0.9 % 500 mL IV bolus 1 sodium chloride 0.9% IV line flush 50 mL 2 04/30/2025 sodium chloride 0.9% syringe 5-10 mL 2 04/16 vancomycin in dextrose 5% (V ANCOCIN) premix IVPB 500 mg 1 04/30/2025 Lab Orders Without Results Count Last Ordered D ate First Ordered Date ABORH 1 05/24/2025 ANTIBODY SCREEN IGG 1 05/24/2025 BB HISTORY CHECK 1 05/24/2025 Nursing Count Last Ordered Date First Orde red PHARM VTE PROPH NON-CANDIDATE 8 06/05/2025 04/30/2025 STRAIGHT CATH 5 05/26/2025 05/18/2025 GARRIDO CATHETER - DISCONTINUE 1 05/25/2025 FLEET ENEMA 1 05/14/2025 ACKNOWLEDGEMENT OF CONSENT 1 05/10/2025 BLOOD GLUCOSE 1 05/10/2025 NURSING COMMUNICATION 2 05/10/20252024 CATHETERIZATION FOR SPEC COLLECTION 1 04/30 Consult Count Last Ordered Date First Orde red IP CONSULT TO WOUND CARE 3 05/29/2025 [...] documented as of this encounter Care Teams [employer] G[employer]r Relationship Specialty Start Date End Date No Pcp, Per Patient PCP - General 06/04/24 documented as of this encounter
--- OUTSIDE RECORDS SUMMARY | 2025-06-12 20:28 | XMS_ITS | Encounter Summary ---
Author Organization [place] [address] Care Team Providers Care Explosive Ordnance Disposal Technician Name Role Phone No Pcp, Per Patient Primary Care Provider Evelyne prabhakar Reason for Visit * Reason Comments Altered Mental Status Encounter Details Date Type Department Care Team (Late st Contact Info) Description 06/12/2025 8:28 PM EDT - 06/12/2025 11:17 PM EDT Emergency [place] [facility] [address] [place] [address] Rhina Gooden, DO [address] [place] [address] Acute UTI (Primary Dx) Discharge Disposition: Nursing Facility Social History Tobacco Use Types Packs/Day Years Used Date Smoking Tobacco: Former Cigarettes Q uit: 1991 Passive Smoke Exposure: Past Smokeless Tobacco: Never Alcohol Use Standard Drinks/Week Comments Not Currently 0 (1 standard drink = 0.6 oz pur e alcohol) [facility] Utilities Answer Date Recorded In the past 12 months has [employer], gas, oil, or water company threatened to shut off services in your home? No 05/01/2025 Overall Financial Resource Strain (CARDIA) Answe r Date Recorded How hard is it for you to pa y for the very basics like food, housing, medical care, and heating? Not hard at all 05/01/2025 PHQ-2 Answer Date Recorded PHQ-2 Total Score 0 05/01/2025 [facility] - Occupational Stress Questionnaire Answer Date Recorded [...] money to get more. Never true 05/01/20[facility] IP Transportation Answer D ate Recorded In [...] 8:25 PM EDT Barb Cason RN * [place] Suicide Severity Rating Scale (Q shift for [...] your life? 0 06/12/2025 8:25 PM EDT iMni Cason RN documented as of this encounter Discharge Instructions * Attachments The following attachments cannot be sent through Care Everywhere. * Urinary tract infection ??? Discharge instructions (Faroese) documented in this encounter Medications at Time [...] Patch 06/11/2025 nalOXone (NARCAN) 4 mg/actuation Nasl [place], Non-Aerosol 0.1 mL by Nasal route as needed for Opioid Reversal. [place] the contents of one device (0.1mL) into [...] PM EDT Report given to RN at [facility] * Rhina Gooden DO - 06/12/2025 8:22 [...] HISTORY Past Medical History: Diagnosis Date A-fib ([facility]) Arthritis Blood circulation, collateral CAD (coronary artery disease) Cardiac dysrhythmia Carotid artery occlusion CHF (congestive heart failure) ([facility]) Diabetes mellitus ([facility]) not currently on meds,rehab discontued Difficult intravenous access possible use of iv therapy/ultrasound to help with venous access. RIVERA (dyspnea on exertion) Encounter for blood transfusion Fatty liver Glaucoma Heartburn Hyperlipidemia Hypertension Liver disease Mixed hyperlipidemia Peripheral vascular disease Renal disorder Renal insufficiency Shortness of breath Sleep apnea pt has cpap, but is not using. Stroke ([facility]) pt's states around 3 years ago. [...] true Transportation Needs: No Transportation Needs (05/01/2025) [facility] HRSN [facility] IP Transportation In the past 12 months, has lack of reliable transportation kept you from medical appointments, meetings, work or from getting things needed for daily living?: No Physical Activity: Inactive (05/01/2025) Exercise Vital Sign Days of Exercise per Week: 0 days Minutes of Exercise per Session: 0 min Stress: No Stress Concern Present (05/01/2025) [place] [facility] - Occupational Stress Questionnaire Feeling of Stress : Not at all Received from [facility] ([place], [place], [place], [place]) Family and Community Support Intimate Partner Violence: Not At Risk (08/06/2024) Received from [facility] Humiliation, Afraid, Rape, and Kick questionnaire Fear of Current or Ex-Partner: No Emotionally Abused: No Physically Abused: No Sexually Abused: No Housing Stability: Low Risk (08/06/2024) Received from [facility] Housing Stability Vital Sign Unable to [...] IR REVAS FEM POP ART UNILAT W ACQUISITIONS ANALYST 01/30/2025 IR REVAS FEM POP ART UNILAT W ACQUISITIONS ANALYST 01/30/2025 Vargas Wolf MD EDG IR IR [...] hallux amputation; Surgeon: Dacia Mills DPM; Location: [facility] MAIN OR; Service: Podiatry CURRENT MEDICATIONS No [...] Rfl: 0 nalOXone (NARCAN) 4 mg/actuation Nasl [place], Non-Aerosol, 0.1 mL by Nasal route as needed for Opioid Reversal. [place] the contents of one device (0.1mL) into [...] 58.2 Imm Gran% 0.3 Lymph Percent 31.6 [place] Percent 9.6 Eos Percent 0.0 Baso Percent 0.3 Neut # 1.8 IMMGRAN# 0.0 Lymph # 1.0 (*) [place] # 0.3 Eos# 0.0 Baso # 0.0 [...] CULTURE. 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 UA and culture were ordered. UA demonstrated 4+ Leukocyte Esterase, >182 WBCs, 1+ Bacteria. Urine culture from 06/09 grew Klebsiella, E. coli and Proteus. Patient started on IV Rocephin for UTI. Patient is oriented and speaking with family members and medical team. She was informed of discharge plan and diagnosis of UTI. Patient discharged on Keflex and transported back to [facility]. Patient was educated on importance of maintaining [...] edits as necessary. Rhina Gooden DO 06/12/25 2411 documented in this encounter Plan of Treatment Upcoming Encounters Date Type Department Care Team (Late st Contact Info) Description 07/16/2025 10:00 AM EDT Office [place] [address] Renae Durand, PATIENT TRANSPORT OFFICER [address] [address] documented as of this encounter Procedures Procedure [...] please contactthe office of the ordering clinician. Rihna Gooden DO IMG CT ORDERABLES Final Result * AMMONIA LEVEL (06/12/2025 9:22 PM EDT) Ammonia 15 11 - 51 mcmol/L 06/12/2025 9:50 PM EDT [facility] Blood VENOUS BLOOD / Unknown Venipuncture / Unknown 06/12/2025 9:22 PM EDT 06/12/2025 9:29 PM EDT Rhina Gooden DO CHEMISTRY ORDERABLES Final Res ult [facility] [address] [place] [address] * LACTIC ACID (06/12/2025 9:22 PM EDT) Lactic Acid 1.2 0.5 - 1.9 mmol/L 06/12/2025 9:50 PM EDT [facility] Blood VENOUS BLOOD / Unknown Venipuncture / Unknown 06/12/2025 9:22 PM EDT 06/12/2025 9:29 PM EDT us Rhina Gooden DO CHEMISTRY ORDERABLES Final Res ult [facility] [address] [place] [address] * (ABNORMAL) BLOOD GAS, VENOUS (06/12/2025 9:22 PM EDT) pH Venous 7.38 7.32 - 7.42 pH 06/12/2025 9:33 PM EDT [facility] pCO2 Venous 40(L) 41 - 51 mmHg 06/12/2025 9:33 PM EDT [facility] pO2 Venous 42(H) 25 - 40 mmHg 06/12/2025 9:33 PM EDT [facility] Comment:Interpret with cauti on. Not recommended to evaluate patient's oxygenation status. Base Excess Martín -1.3 mmol/L 9:33 PM EDT [facility] Hco3 Venous 23.7(L) 24.0 - 28.0 mmol/L 06/12/2025 9:33 PM EDT [facility] CO2 Total Martín 23(L) 25 - 29 mmol/L 06/12/2025 9:33 PM EDT [facility] O2 Sat. Venous 73.9(H) 40.0 - 70.0 % 06/12/2025 9:33 PM EDT [facility] Inspired O2 RA 06/12/2025 9:33 PM EDT [facility] Blood VENOUS BLOOD / Unknown Venipuncture / Unknown 06/12/2025 9:22 PM EDT 06/12/2025 9:29 PM EDT us Rhina Gooden DO CHEMISTRY ORDERABLES Final Res ult Performing Organization Address City/[facility]/ZIP Co de Phone Number [facility] [address] [place] [address] * (ABNORMAL) COMPREHENSIVE METABOLIC PANEL (06/12/2025 9:22 PM EDT) Sodium 138 136 - 145 mmol/L 06/12/2025 9:50 PM EDT [facility] Potassium 4.2 3.5 - 5.0 mmol/L 06/12/2025 9:50 PM EDT [facility] Chloride 106 98 - 107 mmol/L 06/12/2025 9:50 PM EDT [facility] Total CO2 23 22 - 29 mmol/L 06/12/2025 9:[facility] Anion Gap 9 7 - 16 mmol/L 06/12/2025 9:50 PM EDT [facility] Calcium 9.5 8.8 - 10.4 mg/dL 06/12/2025 9:50 [facility] Glucose Lvl 126(H) 70 - 99 mg/dL 06/12/2025 9:50 [facility] BUN 25(H) 8 - 23 mg/dL 06/12/2025 9:50 PM [facility] Creatinine 0.95 0.51 - 1.30 mg/dL 06/12/2025 9:50 [facility] Albumin 3.6 3.2 - 4.6 gm/dL 06/12/2025 9:50 PM [facility] Total Protein 6.7 6.4 - 8.3 gm/dL 06/12/2025 9:50 PM [facility] Bili Total 0.9 0.2 - 1.3 mg/dL 06/12/2025 9:50 PM [facility] ALT 19 <=41 U/L 06/12/2025 9:50 PM [facility] AST 34 <=40 U/L 06/12/2025 9:50 PM [facility] Alk Phos 181(H) 36 - 123 U/L 06/12/2025 9:50 PM [facility] eGFR (CKD-EPIcr 2020) 58(L) >=60 mL/min/1.7 3 m2 06/12/2025 9:50 PM [facility] Comment:Estimated GFR was ca lculated using the CKD-EPIcr (2020) equation refit without race. The equation is recommended by the National Kidney Foundation - [employer] Society of Nephrology Task Force. Blood VENOUS BLOOD / Unknown Venipuncture / Unknown 06/12/2025 9:22 PM EDT 06/12/2025 9:29 PM EDT us Rhina Gooden DO CHEMISTRY ORDERABLES Final Res ult [facility] [address] [facility], [place] [id number] * (ABNORMAL) CBC WITH DIFF (06/12/2025 9:22 PM EDT) WBC 3.1(L) 3.7 - 10.3 x10(3)/mcL 06/12/2025 9:32 PM EDT [facility] RBC 2.30(L) 3.90 - 5.20 x10(6)/mcL 06/12/2025 9:32 PM EDT [facility] Hgb 8.4(L) 11.2 - 15.7 g/dL 06/12/2025 9:32 PM EDT [facility] Hct 24.7(L) 34.0 - 45.0 % 06/12/2025 9:32 PM EDT [facility] MCV 107.4(H) 80.0 - 100.0 fL 06/12/2025 9:32 PM EDT [facility] MCH 36.5(H) 26.0 - 34.0 pg 06/12/2025 9:32 PM EDT [facility] MCHC 34.0 30.7 - 35.5 g/dL 06/12/2025 9:32 PM EDT [facility] RDW 19.9(H) <=14.9 % 06/12/2025 9:32 PM EDT [facility] Platelet 103(L) 155 - 369 x10(3)/mcL 06/12/2025 9:32 PM EDT [facility] MPV 12.9(H) 8.8 - 12.5 fL 06/12/2025 9:32 PM EDT [facility] Neut Percent 58.2 % 06/12/2025 9:32 PM EDT [facility] Comment:Neutrophils equals s egs plus bands Imm Gran% 0.3 % 06/12/2025 9:32 PM EDT [facility] Comment:Automated count of m etamyelocytes, myelocytes and promyelocytes. Lymph Percent 31.6 % 06/12/2025 9:32 PM EDT [facility] [place] Percent 9.6 % 06/12/2025 9:32 PM EDT [facility] Eos Percent 0.0 % 06/12/2025 9:32 PM EDT [facility] Baso Percent 0.3 % 06/12/2025 9:32 PM EDT [facility] Neut # 1.8 1.6 - 6.1 x10(3)/[facility] 06/12/2025 9:32 PM EDT [facility] Comment:Neutrophils equals s egs plus bands IMMGRAN# 0.0 0.0 - 0.1 x10(3)/mcL 06/12/2025 9:32 PM EDT [facility] Comment:Automated count of m etamyelocytes, myelocytes and promyelocytes. An absolute IG <0.1 is reported as 0.0. Lymph # 1.0(L) 1.2 - 3.9 x10(3)/mcL 06/12/2025 9:32 PM EDT [facility] [place] # 0.3 0.3 - 0.9 x10(3)/[facility] 06/12/2025 9:32 PM EDT [facility] Eos# 0.0 0.0 - 0.5 x10(3)/[facility] 06/12/2025 9:32 PM EDT [facility] Baso # 0.0 0.0 - 0.1 x10(3)/[facility] 06/12/2025 9:32 PM EDT [facility] Blood VENOUS BLOOD / Unknown Venipuncture / Unknown 06/12/2025 9:22 PM EDT 06/12/2025 9:29 PM EDT us Rhina Gooden DO HEMATOLOGY ORDERABLES Final Re sult [facility] [address] [place] [address] * (ABNORMAL) URINE CULTURE (NO STAIN) (06/12/2025 9:11 PM EDT) Culture Positive Growth(A) 06/15/2025 12:51 PM EDT [facility] Culture >100,000 CFU/mL Klebsiella pneumoniae SUSCEPTIB ILITY RESULT 06/15/2025 12:51 PM EDT [facility] Culture >100,000 CFU/mL Proteus mirabilis SUSCEPTIB ILITY RESULT 06/15/2025 12:51 PM EDT [facility] Comment: Confirmed positive for ESBL (extended [...] ORDERAB LES Final Result Performing Organization Address City/[facility]/ZIP Co de Phone Number [facility] [employer] [address] , [place] [address] * EXTRA HUITRON URINE CX (06/12/2025 9:11 PM EDT) Urine STRUCTURE OF URINARY TRACT PROPER / Unknown 06/12/2025 9:11 PM EDT 06/12/2025 9:28 PM EDT us Rhina Gooden DO MICROBIOLOGY - GENERAL ORDERAB LES Final Result Performing Organization Address [facility] Co de Phone Number [facility] [address] [place] [address] * (ABNORMAL) URINALYSIS REFLEX (06/12/2025 9:11 PM EDT) UA Color Yellow 06/12/2025 9:37 PM EDT [facility] UA Appear Cloudy(A) Clear 06/12/2025 9:37 PM EDT [facility] UA Glucose Negative Negative mg/dL 06/12/2025 9:37 PM EDT [facility] UA Ketones Negative Negative mg/dL 06/12/2025 9:37 PM EDT [facility] UA Blood Negative Negative 06/12/2025 9:37 PM EDT [facility] UA pH 6.0 5.0 - 8.0 pH 06/12/2025 9:37 PM EDT [facility] UA Protein Trace (10-20 mg/dL) Negative mg/dL 06/12/2025 9:37 PM EDT [facility] UA Urobilinogen Normal <=1 mg/dL 9:37 PM EDT [facility] Bili Negative Negative 06/12/2025 9:37 PM EDT [facility] UA Nitrite Negative Negative 06/12/2025 9:37 PM EDT [facility] UA Leuk Est 4+ (500 Ion/mcl)(A) Negative 06/12/2025 9:37 PM EDT [facility] UA Spec Grav 1.015 1.001 - 1.035 no units 06/12/2025 9:37 PM EDT [facility] Comment:Reference range helga d for random specimens only. UA WBC >182(H) 0 - 4 /HPF 06/12/2025 9:37 PM EDT [facility] UA RBC 1 0 - 3 /HPF 06/12/2025 9:37 PM EDT [facility] UA Squam Epi 4+ /LPF 06/12/2025 9:37 PM EDT [facility] UA Bacteria 1+(A) Negative /HPF 06/12/2025 9:37 PM EDT [facility] UA Trans Epi <1(H) <=0 /HPF 06/12/2025 9:37 PM EDT [facility] Urine STRUCTURE OF URINARY TRACT PROPER / Unknown 06/12/2025 9:11 PM EDT 06/12/2025 9:28 PM EDT us Rhina Gooden DO URINE ORDERABLES Final Result Performing Organization Address City/State/[facility] Co de Phone Number [facility] [address] [place] [phone] documented in this encounter Visit Diagnoses Diagnosis [...] documented as of this encounter Care Teams Explosive Ordnance Disposal Technician Relationship Specialty Start Date End Date No Pcp, Per Patient PCP - General 06/04/24 documented as of this encounter
[2025-07-12 08:26] LABS: Hematocrit 26.3 % (37.0-47.0); Hemoglobin 8.6 g/dL (12.2-16.2); Immature Granulocytes % 0.6 %; Mean Corpuscular HGB Conc 32.7 g/dL (31.8-35.4); Mean Corpuscular Hemoglobin 37.1 pg (27.0-31.2); Mean Corpuscular Volume 113.4 fl (81-99); Nucleated Red Blood Cells % 0 %; Platelet Count 80 K/mm3 (142-424); Red Blood Count 2.32 M/mm3 (4.20-5.40); Red Cell Distribution Width-SD 71.0 fL; White Blood Count 3.2 K/mm3 (4.8-10.8)
--- OUTSIDE RECORDS SUMMARY | 2025-07-12 08:35 | XMS_ITS | Encounter Summary ---
Author Organization [employer] ([place], [place], [place], [place]) Address [address] [place] [address] Care Team Providers Care Contract Technician Name Role Phone Jay Howell MD Primary Care Provider [phone] Encounter Details Date Type Department Care Team (Late st Contact Info) Description 03/17/2021 Transcribed Document [facility] Family Medicine [facility] [place] [address] ProviderJessie MD [address] [place], [place] [id number] Social History Tobacco Use Types Packs/Day Years Used Date Smoking Tobacco: Never Assessed Comments Unknown Sex and Gender Information Value Date Recorded Sex Assigned at Not on file Legal Sex Female 7:30 PM CDT Gender Identity Not on file Sexual Orientation Not on file documented as of this encounter Miscellaneous Notes * [employer] Conversion Note - Historical ProviderMD - 03/17/2021 12:33 PM CDT Event Note Entered On: 03/17/2021 12:39 EDT Performed On: 03/17/2021 12:33 EDT by Skip Sotelo RN Event Note Event Date/Time : 03/17/2021 12:33 EDT Event Location : Assigned room Description of Event : Patient complained of chest pain at 1215 on 03/17/2021, described it as a baboon sitting on my chest, and burning i nthe back , vitals were taken with a blood pressure of 172/54, heart rate 75, cardiology specialty was called, an EKG has been conducted. Patient is resting in bed, declares at 12:34 the pain is still there just not as bad as it was, I get these feelings at nighttime at home. Skip Sotelo RN - 03/17/2021 12:33 EDT Electronically signed by [facility] Conversion Rental Counter Clerk Cerner at 02/04/2023 1:58 PM CDT documented in this encounter Plan of Treatment Not on file documented as of this encounter Visit Diagnoses Not on filedocumented in this encounter Care Teams Contract Technician Relationship Specialty Start Date End Date Jay Howell MD [address] [place] [phone] PCP - General Emergency Medicine 11/12/23 documented as of this encounter
--- OUTSIDE RECORDS SUMMARY | 2025-07-12 08:36 | XMS_ITS | Encounter Summary ---
Author Organization [employer] ([place], [place], [place], [place]) Address [address] [place] [address] Care Team Providers Care Filter Bed Placer Name Role Phone Jay Howell MD Primary Care Provider [phone] Encounter Details Date Type Department Care Team (Late st Contact Info) Description 03/16/2021 Transcribed Document [facility] Family Medicine [address] [place] [address] ProviderJessie MD [address] [place], [place] [id number] Social History Tobacco Use Types Packs/Day Years Used Date Smoking Tobacco: Never Assessed Comments Unknown Sex and Gender Information Value Date Recorded Sex Assigned at Not on file Legal Sex Female 7:30 PM CDT Gender Identity Not on file Sexual Orientation Not on file documented as of this encounter Miscellaneous Notes * [employer]ner Conversion Note - Historical ProviderMD - 03/16/2021 6:14 PM CDT Meds to Bed Enrollment Entered On: 03/17/2021 9:24 EDT Performed On: 03/16/2021 18:14 EDT by CHUNG JAIMES RPh Meds to Bed Enrollment Patient Enrollment Decision: : Yes/enroll in meds to bed program CHUNG JAIMES RPh - 03/17/2021 9:24 EDT documented in this encounter Plan of Treatment Not on file documented as of this encounter Visit Diagnoses Not on filedocumented in this encounter Care Teams Filter Bed Placer Relationship Specialty Start Date End Date Jay Howell MD [address] [place] [phone] PCP - General Emergency Medicine 11/12/23 documented as of this encounter
--- OUTSIDE RECORDS SUMMARY | 2025-07-12 08:36 | XMS_ITS | Encounter Summary ---
Author Organization [employer] ([place], [place], [place], [place]) Address [address] [place] [address] Care Team Providers Care Clerk Analyst Name Role Phone Jay Howell MD Primary Care Provider [phone] Encounter Details Date Type Department Care Team (Late st Contact Info) Description 08/25/2020 Transcribed Document [facility] [place] [address] [place] [address] ProviderJessie MD [address] [place] [address] Social History Tobacco Use Types Packs/Day Years Used Date Smoking Tobacco: Never Assessed Comments Unknown Sex and Gender Information Value Date Recorded Sex Assigned at Not on file Legal Sex Female 7:30 PM CDT Gender Identity Not on file Sexual Orientation Not on file documented as of this encounter Miscellaneous Notes * Cerner Conversion Note - Jessie Yuen MD - 08/25/2020 5:05 AM OFFICE HELPER Patient: SKYLER MONTOYA Age: 79 years Sex: Female : 1940 Associated Diagnoses: Hematoma of left lower leg; Cellulitis of leg Author: LO HALE MD-EMR Basic Information Additional information: Chief Complaint from Nursing Triage Note : Chief Complaint 08/25/2020 4:41 EST Chief Complaint pt to ED from home for leg wound. pt seen here Tuesday for same. pt also c/o nausea that started on the way to ED . History of Present Illness The patient is a 79-year-old white female. She was seen here on 08/22/2020. At that time she had fallen several days prior and sustained a hematoma to the anterior tibial aspect of the lower left leg. It subsequently turned very red over the next several days. The erythema continued to expand as did her pain. She was seen here on 08/22/2020. At that time the hematoma was drained utilizing a linear incision. Wound cultures were obtained. Patient was placed on clindamycin and a small piece of packing was placed within the wound after sterile irrigation. Patient states that she was feeling better up until this morning when the left leg began to throb. No fever no chills. She likewise has been unable to find any wound care follow-up at her local vicinity. Review of Systems Constitutional symptoms: Negative except as documented in HPI. Skin symptoms: Negative except as documented in HPI. Eye symptoms: Negative except as documented in HPI. ENMT symptoms: Negative except as documented in HPI. Respiratory symptoms: Negative except as documented in HPI. Cardiovascular symptoms: Negative except as documented in HPI. Gastrointestinal symptoms: Negative except as documented in HPI. Genitourinary symptoms: Negative except as documented in HPI. Musculoskeletal symptoms: Negative except as documented in HPI. Neurologic symptoms: Negative except as documented in HPI. Psychiatric symptoms: Negative except as documented in HPI. Endocrine symptoms: Negative except as documented in HPI. Hematologic/Lymphatic symptoms: Negative except as documented in HPI. Allergy/immunologic symptoms: Negative except as documented in HPI. Additional review of systems information: All other systems reviewed and otherwise negative, All systems reviewed as documented in chart. Health Status Allergies: Allergic Reactions (Selected) Severity Not Documented Macrodantin- No reactions were documented. Morphine- Rash and rash. Nitrofurantoin- Blisters and blisters. . Past Medical/ Family/ Social History Surgical history: Cardiac Stent in 2010 at 70 Years. Cardiac Stent on 01/30/2008 at 67 Years. Comments: 06/13/2020 8:52 EVA LAWS RN PCI w/ [place] stent to D1 Coronary artery bypass graft ([id number]) in 1992 at 52 Years. femur repair. Appendectomy ([id number]). uterine suspension. Hysterectomy ([id number]). back surgury. Cholecystectomy ([id number]). Hip replacement ([id number]). cataract surgury. . Family history: Cardiomyopathy Child Stroke Brother Heart attack Brother Sister Leukemia Child Cancer Father Mother Sister Coronary heart disease Child . Social history: Social & Psychosocial Habits Alcohol 08/13/2013 Alcohol Use in Last Twelve Months No Home/Environment 12/14/2014 Lives with: Spouse Living situation: Home/Independent Nutrition/Health 08/06/2014 Caffeine intake amount: 2 Substance Abuse 08/13/2013 Recreational Drug Use History No Tobacco 11/23/2016 Smoking Status Former smoker Comment: quite 1993 - 11/23/2016 13:03 - DAVIDA ISAAC RN . Problem list: Active Problems (21) Apnea, sleep Arthritis Atrial fibrillation with RVR Blood clot Cataract Chest pain Chronic anticoagulation Clotting disorder COPD Coronary artery disease Diabetes mellitus Emphysema GERD - Gastro-esophageal reflux disease Glaucoma High blood pressure History of obstructive sleep apnea Hx of pulmonary embolus Hyperlipidemia Multiple renal cysts Stented coronary artery UTI - Urinary tract infection . Physical Examination Vital Signs Vital Signs/Vital Measures 08/25/2020 4:41 EST Systolic Blood Pressure 214 mmHg HI Diastolic Blood Pressure 95 mmHg HI Temperature Source Oral Temperature Mode Fahrenheit Temperature, Fahrenheit 98.4 Deg F Clinical Temperature, C 36.9 Deg C Peripheral Pulse Rate 81 bpm Respiratory Rate 16 Breaths/Min Oxygen Saturation 97 % Oxygen Therapy Mode Room air . Measurements 08/25/2020 4:41 EST Height Source Stated Height Entry Format [place] Height/Length, WOLOF (ft) 5 ft Height/Length WOLOF 3 Inch CLINICALHEIGHT 160.02 cm [place] Body Weight 52.02 kg Weight Source, ED Critical estimated dosing weight Weight Entry Format [place] Weight Sudanese lb 152 lb CLINICALWEIGHT 69.09 kg Body Surface Area (BSA) 1.72 m2 Body Mass Index 27 kg/m2 HI . Oxygen Saturation 08/25/2020 4:41 EST Oxygen Saturation 97 % . General: Alert, mild distress. Skin: Left lower extremity: There is a wound on the left lower anterior tibial area with packing in place. This packing was soaked with saline and gently removed. There is an approximate 1 cm vertical incision noted. No purulent discharge. Medial to the incision there is an approximately dime size area of skin which is sloughing. This was present 2 days ago upon initial evaluation of the patient. There is erythema that is quite tender surrounding the incision that extends approximately 2-1/2 cm in all directions. There is no evidence of ascending lymphangitis. Head: Normocephalic, atraumatic. Neck: Supple. Eye: Pupils are equal, round and reactive to light, extraocular movements are intact. Cardiovascular: Regular rate and rhythm, Normal peripheral perfusion. Respiratory: Lungs are clear to auscultation, respirations are non-labored. Gastrointestinal: Soft, Nontender, Non distended, Normal bowel sounds. Musculoskeletal: See skin examination. Neurological: Alert and oriented to person, place, time, and situation, No focal neurological deficit observed, normal sensory observed, normal motor observed, normal speech observed, normal coordination observed. Psychiatric: Cooperative. Medical Decision Making Documents reviewed: Emergency department nurses' notes. Orders Include Previous Orders (Selected) Inpatient Orders InProcess (Preliminary) Culture Blood: Culture Blood: Wound Culture and Stain: Ordered ED Fall Risk Documented: ED pss delivery professional: Normal Saline 1,000 mL: 75 mL/Hr, IntraVENous Vancomycin dosing by pharmacy: amLODIPine: 10 mg, Oral, 1-Time Ordered (Collected) CMP Comprehensive Metabolic Panel: Procalcitonin: Ordered (Exam Completed) CL Left Heart Cath W Possible Intervent: Ordered (In-Lab) .Automated Differential: CBC w/ Auto Diff: Culture Blood: Culture Blood: Lactic Acid Level with Reflex if Indicated: PT/INR Prothrombin Time: Wound Culture and Stain: Prescriptions Prescribed Bactroban 2% topical ointment: 1 Application, Topical, TID, 22 Gram, 0 Refill(s) Merrill 7.5 mg-325 mg oral tablet: 1 Tab, Oral, Q6H, for 3 Day(s), PRN: as needed for pain, 12 Tab, 0 Refill(s) atorvastatin 80 mg oral tablet: 1 Tab, Oral, At Bedtime, for 30 Day(s), 30 Tab, 0 Refill(s) carvedilol 6.25 mg oral tablet: 1 Tab, Oral, TID, for 30 Day(s), 90 Tab, 0 Refill(s) clindamycin 300 mg oral capsule: 1 Cap, Oral, QID, for 7 Day(s), 28 Cap, 0 Refill(s) hydrALAZINE 10 mg oral tablet: 1 Tab, Oral, BID, for 30 Day(s), 60 Tab, 0 Refill(s) Documented Medications Documented Combigan 0.2%-0.5% ophthalmic solution: 1 Drop, Eye Right, BID, 0 Refill(s) Coumadin 2 mg oral tablet: 1 Tab, Oral, LyndaFrSu Coumadin 2 mg oral tablet: 1.5 Tab, Oral, MoWe Durezol 0.05% ophthalmic emulsion: 1 Drop, Eye Right, QID, 0 Refill(s) Multiple Vitamins oral tablet: 1 Tab, Oral, Daily, 30 Tab Norvasc 10 mg oral tablet: 1 Tab, Oral, Daily, 0 Refill(s) Ranexa 500 mg oral tablet, extended release: 2 Tab, Oral, BID, 0 Refill(s) Xanax 0.5 mg oral tablet: 1 Tab, Oral, At Bedtime, PRN: for anxiety/sleep, 0 Refill(s) aspirin 81 mg oral tablet: 1 Tab, Oral, Daily, 0 Refill(s) dorzolamide 2% ophthalmic solution: 1 Drop, Eyes Both, BID, 0 Refill(s) losartan 100 mg oral tablet: 1 Tab, Oral, Daily, 0 Refill(s) metFORMIN 500 mg oral tablet, extended release: 1 Tab, Oral, BID With Meals, 0 Refill(s) omeprazole 40 mg oral delayed release capsule: 1 Cap, Oral, Daily, 30 Cap, 0 Refill(s) . Electrocardiogram: Time 08/25/2020 06:04:00, rate 60, normal sinus rhythm, No ST changes. Results review: Lab results : Lab Results 08/25/2020 5:06 EST Sodium Level 136 mmol/L Potassium Level 3.7 mmol/L Chloride Level 105 mmol/L Carbon Dioxide Level 25 mmol/L Anion Gap 10 Glucose Level 120 mg/dL HI Blood Urea Nitrogen 12 mg/dL Creatinine Level 0.90 mg/dL eGFR >60 mL/min/1.73m2 eGFR NonAfrican 60 mL/min/1.73m2 Bun/Creatinine 13.3 Calcium Level 9.1 mg/dL Protein Total 8.1 Gram/dL Albumin Level 4.0 Gram/dL Globulin 4.1 Gram/dL A/G Ratio 1.0 LOW Bilirubin Total 0.9 mg/dL Alk Phos 63 Units/Liter AST 29 Units/Liter ALT 32 Units/Liter Lactic Acid Level 2.1 mmol/L CRIT WBC 6.0 K/uL RBC 3.77 Million/uL LOW Hgb 12.0 g/dL Hct 36.1 % MCV 95.8 fL HI MCH 31.8 pg MCHC 33.2 Gram/dL Platelet Count 178 K/uL MPV 10.1 fL RDW 13.3 % Neut % 56.1 % Neut # 3.39 K/uL Lymph % 32.7 % Lymph # 1.98 x10(3)/uL [place] % 10.2 % HI [place] # 0.62 K/uL Eos % 0.0 % Eos # 0.00 x10(3)/uL Baso % 0.5 % Baso # 0.03 x10(3)/uL Slide Review No IG# 0.03 x10(3)/uL IG% 0.50 % PT 32.5 Second(s) HI INR 3.1 HI Procalcitonin <0.25 ng/mL . Impression and Plan Diagnosis Hematoma of left lower leg - Discharge, Emergency medicine, Medical Cellulitis of leg - Discharge, Emergency medicine, Medical Calls-Consults - 08/25/2020 05:52:00 , BETH DAVALOS MD-INT, will admit . Plan Condition: Stable. Counseled: Patient. Orders: Launch Orders Admit/Transfer/Discharge: Admit to Inpatient (Order): Start: 08/25/2020 5:53 EST, Admit reason: left leg hematoma, cellulitis, Estimated length of stay 2 Midnights or LONGER, Level of Care: Med-Surg, Admitting: BETH DAVALOS MD-INT . Electronically signed by Sivan [facility] Conversion [employer] Sales Representative Cerner at 02/04/2023 2:03 PM CDT documented in this encounter Plan of Treatment Not on file documented as of this encounter Visit Diagnoses Not on filedocumented in this encounter Care Teams Clerk Analyst Relationship Specialty Start Date End Date Jay Howell MD [address] [place] [phone] PCP - General Emergency Medicine 11/12/23 documented as of this encounter
--- OUTSIDE RECORDS SUMMARY | 2025-07-12 08:36 | XMS_ITS | Encounter Summary ---
Author Organization [employer] ([place], [place], [place], [place]) Address [address] [place] [address] Care Team Providers Care Certified Surgical Technician Name Role Phone Jay Howell MD Primary Care Provider [phone] Encounter Details Date Type Department Care Team (Late st Contact Info) Description 03/16/2021 Transcribed Document [facility] [place] [facility] [place] [address] ProviderJessie MD [address] [place] [id number] Social History Tobacco Use Types Packs/Day Years Used Date Smoking Tobacco: Never Assessed Comments Unknown Sex and Gender Information Value Date Recorded Sex Assigned at Not on file Legal Sex Female 7:30 PM CDT Gender Identity Not on file Sexual Orientation Not on file documented as of this encounter Miscellaneous Notes * Cerner Conversion Note - Jessie ProviderMD - 03/16/2021 5:59 PM CDT Pain Assessment Entered On: 03/17/2021 3:32 EDT Performed On: 03/16/2021 23:23 EDT by Susan Marks RN-PATIENT CARE BEDSIDE NON-EXEMPT Intervention Information: oxyCODONE Performed by Susan Marks RN-PATIENT CARE BEDSIDE NON-EXEMPT on 03/16/2021 22:23:00 EDT oxyCODONE,5mg Oral,Pain Pain Assessment Pain Assessment : Follow-up assessment Pain Scale Used : 0-10 Scale Pain Improved by Intervention : Yes Susan Marks RN-PATIENT CARE BEDSIDE NON-EXEMPT - 03/17/2021 3:32 EDT Pain Scale Intensity : 4 Susan Marks RN-PATIENT CARE BEDSIDE NON-EXEMPT - 03/17/2021 3:32 EDT Image 4 - Images currently included in the form version of this document have not been included in the text rendition version of the form. Electronically signed by Sivan [facility] Conversion Html Developer Cerner at 02/06/2023 12:48 PM CDT documented in this encounter Plan of Treatment Not on file documented as of this encounter Visit Diagnoses Not on filedocumented in this encounter Care Teams Certified Surgical Technician Relationship Specialty Start Date End Date Jay Howell MD [address] [place] [phone] PCP - General Emergency Medicine 11/12/23 documented as of this encounter
--- OUTSIDE RECORDS SUMMARY | 2025-07-12 08:36 | XMS_ITS | Encounter Summary ---
Author Organization [employer] ([place], [place], [place], [place]) Address [address] [place] [address] Care Team Providers Care Servomechanism Assembler Name Role Phone Jay Hoewll MD Primary Care Provider [phone] Encounter Details Date Type Department Care Team (Late st Contact Info) Description 08/25/2020 Transcribed Document [facility] [place] [address] [place] [address] ProviderJessie MD [address] [place] [address] Social History Tobacco Use Types Packs/Day Years Used Date Smoking Tobacco: Never Assessed Comments Unknown Sex and Gender Information Value Date Recorded Sex Assigned at Not on file Legal Sex Female 7:30 PM CDT Gender Identity Not on file Sexual Orientation Not on file documented as of this encounter Miscellaneous Notes * [employer]ner Conversion Note - Jessie ProviderMD - 08/25/2020 4:33 AM REHABILITATION SUPERVISOR [place] Suicide Severity Rating Scale (C-SSRS) Entered On: 08/25/2020 5:10 EST Performed On: 08/25/2020 5:10 EST by Yajaira Magallon Rn [place] Suicide Severity Rating Scale (C-SSRS) CSSRS Past Month Wish to be : No CSSRS Past Month Suicidal Thoughts : No CSSRS Lifetime Suicide Behavior : No Suicide Severity Rating Score : 0 Suicide Severity Rating : No Additional Care Required at this time Yajaira Magallon Rn - 08/25/2020 5:10 EST documented in this encounter Plan of Treatment Not on file documented as of this encounter Visit Diagnoses Not on filedocumented in this encounter Care Teams Servomechanism Assembler Relationship Specialty Start Date End Date Jay Howell MD [address] [place] [phone] PCP - General Emergency Medicine 11/12/23 documented as of this encounter
--- OUTSIDE RECORDS SUMMARY | 2025-07-12 08:36 | XMS_ITS | Encounter Summary ---
Author Organization [employer] ([place], [place], [place], [place]) Address [address] [place] [address] Care Team Providers Care Cinema Or Theatre Manager Name Role Phone Jay Howell MD Primary Care Provider [phone] Encounter Details Date Type Department Care Team (Late st Contact Info) Description 03/17/2021 Transcribed Document [facility] Family Medicine [facility] [place] [address] ProviderJessie MD [address] [place] [phone] Social History Tobacco Use Types Packs/Day Years Used Date Smoking Tobacco: Never Assessed Comments Unknown Sex and Gender Information Value Date Recorded Sex Assigned at Not on file Legal Sex Female 7:30 PM CDT Gender Identity Not on file Sexual Orientation Not on file documented as of this encounter Miscellaneous Notes * Cerner Conversion Note - Historical ProviderMD - 03/17/2021 2:49 PM CDT Discharge Instructions Entered On: 03/17/2021 14:50 EDT Performed On: 03/17/2021 14:49 EDT by BHARTI MAGAÑA MD-NEU DC Instructions HWD Driving After Discharge : Do not drive, Other: No driving or operating heavy machinery until released by a physician. BHARTI MAGAÑA MD-NEU - 03/17/2021 14:49 EDT Electronically signed by Sivan [facility] Conversion International Coordinator Cerner at 02/04/2023 2:21 PM CDT documented in this encounter Plan of Treatment Not on file documented as of this encounter Visit Diagnoses Not on filedocumented in this encounter Care Teams Cinema Or Theatre Manager Relationship Specialty Start Date End Date Jay Howell MD [address] [place] [phone] PCP - General Emergency Medicine 11/12/23 documented as of this encounter
--- OUTSIDE RECORDS SUMMARY | 2025-07-12 08:36 | XMS_ITS | Encounter Summary ---
Author Organization [employer] ([place], [place], [place]) Address [address] [place] [address] Care Team Providers Care Furniture Assembler Name Role Phone Jay Howell MD Primary Care Provider [phone] Encounter Details Date Type Department Care Team (Late st Contact Info) Description 08/25/2020 Transcribed Document [facility] [place] [address] [place] [address] ProviderJessie MD [address] [place] [address] Social History Tobacco Use Types Packs/Day Years Used Date Smoking Tobacco: Never Assessed Comments Unknown Sex and Gender Information Value Date Recorded Sex Assigned at Not on file Legal Sex Female 7:30 PM CDT Gender Identity Not on file Sexual Orientation Not on file documented as of this encounter Miscellaneous Notes * Cerner Conversion Note - Historical MD Alpa - 08/25/2020 10:53 AM ENGINEERING PRODUCTION LIAISON DATE OF CONSULTATION: 08/25/2020 INFECTIOUS DISEASE CONSULTATION REQUESTING PHYSICIAN: Dr. Molina. REASON FOR CONSULTATION: Left leg infection. CHIEF COMPLAINT: Left leg infection. HISTORY OF PRESENT ILLNESS: This is an 79-year-old woman with extensive comorbidity as outlined below, on chronic anticoagulation with Coumadin. She reports having fallen while trying to step off her wood deck and traumatized her left reid on one of the wood steps on approximately August 16. She had subsequent bruising/swelling and redness. Ryanflex was called in empirically by her PCP, although no outpatient cultures that she knows of. She came to the emergency room on August 22, at which point she was thought to have an infected hematoma/abscess and given empiric clindamycin with incision in the emergency room. She reports further deterioration since with increased redness/swelling and pain. The patient has pain in the left lower leg between knee and ankle, but worse at the midsection. The pain is constant, sharp at times, nonradiating, worse with palpation and wound care, generally better with analgesics and 3 to 5 out of 10 in severity. Diffuse bruising between knee and ankle. No headache, photophobia, or neck stiffness. No shortness of breath, cough, or hemoptysis. No nausea, vomiting, diarrhea, or abdominal pain. No dysuria, hematuria, or pyuria. No other rash. No other specific trauma. No other blunt force or penetrating trauma. No animal, insect, or arthropod bite. No fresh/brackish/salt water exposure. No prior history of MRSA, VRE, C difficile, or ESBL/KPC/CRE organisms. REVIEW OF SYSTEMS: CONSTITUTIONAL: She reports subjective fever. No chills or sweats. She is fatigued. Denies malaise. Appetite okay. HEENT: No new vision, hearing, or throat complaints. No epistaxis. No oral sores. No odynophagia or dysphagia. No new visual field defect. No flashes, floaters, or eye pain. CARDIOVASCULAR: Denies chest pain, palpitations, or syncope. RESPIRATORY: As above. No shortness of breath, cough, or hemoptysis. GI: As above. No hematochezia, melena, or hematemesis. Denies jaundice. No chronic liver disease. LYMPH: No swollen lymph nodes in the neck, armpits, or groin. ENDOCRINE: Longstanding history of diabetes. Denies thyroid disease. HEME: No active bleeding, and bruising/hematoma as above. Denies thromboembolic disease. She is on chronic Coumadin. NEUROLOGIC: Denies acute focal weakness, numbness in the arms or legs. No history of seizures. All other systems negative for acute complaints on 12-system review of systems. PAST MEDICAL HISTORY: Includes: 1. Diabetes, type 2. 2. Chronic Coumadin. 3. Coronary artery disease. 4. Coronary artery bypass graft. 5. Anxiety. 6. COPD. 7. Hypertension. 8. Hyperlipidemia. 9. Prior percutaneous coronary intervention. 10. History of femur repair. 11. Appendectomy. 12. Uterine surgery. 13. Hysterectomy. 14. Back surgery. 15. Cholecystectomy. 16. Hip replacement. PAST SURGICAL HISTORY: As above, otherwise denies. SOCIAL HISTORY: Previous tobacco. No alcohol or illicit drugs. FAMILY HISTORY: Heart disease in mom/dad. ALLERGIES: Macrobid and morphine. MEDICATIONS: Include: 1. Norvasc. 2. Atorvastatin. 3. Carvedilol. 4. Daptomycin. 5. Eye drops. 6. Pepcid. 7. Hydralazine. 8. Losartan. 9. Multivitamin. 10. Ranexa. 11. Zosyn. PHYSICAL EXAMINATION: GENERAL: The patient is elderly, but alert and oriented. VITAL SIGNS: T-max 99.1, heart rate 64, blood pressure 164/72. EYES: Pupils generally equal in size. No icterus or conjunctivitis. No conjunctival petechiae. ENMT: External ears unremarkable. Oropharynx without obvious exudates or lesions. No thrush. No oral sores. Nasal mucosa dry. NECK: Supple. No mass or thyromegaly. HEART: Distant heart tones. Regular rate. No murmur or gallop. Radial pulse intact. No evidence for peripheral embolic phenomenon. No Janeway lesions or Osler nodes. No splinter hemorrhages. LUNGS: Diminished at the bases, but otherwise clear, nonlabored. ABDOMEN: Soft, nontender. Bowel sounds positive. No mass or HSM. : External genitalia generally unremarkable. LYMPH: No cervical, axillary, or inguinal lymphadenopathy. SKIN: No acute rash on inspection/palpation. MUSCULOSKELETAL: No obvious joint effusions appreciated in the arms or legs. Free range of motion of the shoulders, elbows, wrists, hips, knees, and ankles. NEUROLOGIC: Decreased sensation in distal lower extremities bilaterally consistent with chronic sensory neuropathy. Gait not witnessed. Moves all 4 extremities. Left lower leg with diffuse bruising between knee and ankle in various stages of evolution. Mid aspect with an open wound that has crusted/coagulated blood, appears to be at least through the dermis but I am unable to probe to bone, tendon, joint, or ligament. I am unable to express any purulence. There is vague surrounding redness, warmth, induration, and tenderness. No crepitus or bulla. No discrete fluctuance. DIAGNOSTIC STUDIES: LABORATORY RESULTS: Labs on 08/25, creatinine 0.9. Lactate 2.1. LFTs within normal limits. White blood cell count 6, hemoglobin 12, platelets 178. Wound culture from 08/25, pending. Wound culture from 08/23, no growth so far. Blood cultures on 08/22, negative. IMAGING STUDIES: Chest x-ray, no acute process. IMPRESSION: 1. Acute left lower leg cellulitis. It is in the setting of trauma from August 16 with subsequent hematoma/bruising and deterioration despite outpatient debridement and outpatient Keflex with subsequent clindamycin. Surgery has been consulted to help guide timing/option threshold for further debridement at their discretion. Unclear of sharp debridement versus other, but likely needs to be cleaned up and evacuated to facilitate better wound care. In addition, this would help clarify depth of involvement. Currently, I am unable to probe to bone, although certainly deeper tissue structures are risk. Broad antibiotic coverage with daptomycin/Zosyn, and then adjust depending on clinical course/study results and response to therapy. Current cultures from August 25, antibiotic modified. The patient understands antibiotics and debridements are not a guarantee for cure with risk for further serious morbidity and other serious sequela including functional/limb loss in addition to persistent/recurrent or nonhealing wounds, persistent/progressive or recurrent infection, and other dire consequences, etc. 2. Subacute trauma after stepping off her porch associated with a wood step on August 16. 3. Diabetes, type 2. You need to tightly control blood sugar to give your best chance for healing. 4. Chronic heart and lung disease. PLAN: Thank you for asking us to see Ms. Montoya. I recommend the followin. Daptomycin IV. 2. Zosyn IV. 3. I discussed potential adverse drug reaction to the above antibiotics that include, but not limited to, solid organ toxicity, neuro/muscle/pulmonary toxicity, C difficile, cytopenias, hypersensitivity, etc. She voiced understanding and agreed to proceed. 4. Monitor IV and IV antibiotic with risk for systemic complication and potential drug interaction. 5. Check labs, culture, and scans. 6. Partial history per nursing staff. 7. Highly complex set of issues, high risk for further serious morbidity and other serious sequela. 8. Vascular team following as above. Discussed with them. /[id number] MD VANESSA Campa/AQ / VANESSA / MODL /[id number] CC: MD David Campa MD Electronically signed by [facility], [facility] Conversion Business Specialist Cerner at 02/04/2023 2:05 PM CDT documented in this encounter Plan of Treatment Not on file documented as of this encounter Visit Diagnoses Not on filedocumented in this encounter Care Teams Furniture Assembler Relationship Specialty Start Date End Date Jay Howell MD [address] [place] [phone] PCP - General Emergency Medicine 11/12/23 documented as of this encounter
--- OUTSIDE RECORDS SUMMARY | 2025-07-12 08:36 | XMS_ITS | Encounter Summary ---
Author Organization [employer] ([place], [place], [place], [place]) Address [address] [place] [address] Care Team Providers Care Oncology Pharmacist Name Role Phone Jay Howell MD Primary Care Provider [phone] Encounter Details Date Type Department Care Team (Late st Contact Info) Description 03/17/2021 Transcribed Document [facility] [place] [facility] [place] [address] ProviderJessie MD [address], [place] [address] Social History Tobacco Use Types Packs/Day Years Used Date Smoking Tobacco: Never Assessed Comments Unknown Sex and Gender Information Value Date Recorded Sex Assigned at Not on file Legal Sex Female 7:30 PM CDT Gender Identity Not on file Sexual Orientation Not on file documented as of this encounter Miscellaneous Notes * Cerner Conversion Note - Historical ProviderMD - 03/17/2021 5:00 PM CDT Chart Check - Review Order Profile Entered On: 03/17/2021 17:25 EDT Performed On: 03/17/2021 17:00 EDT by Skip Sotelo, RN Chart Check Powerplans Initiated/Discontinued as Appropriate : Yes All Active Orders Reviewed : Yes Skip Sotelo RN - 03/17/2021 17:25 EDT Electronically signed by Sivan [facility] Conversion [employer]iscuit Factory Worker Cerner at 02/04/2023 2:18 PM CDT documented in this encounter Plan of Treatment Not on file documented as of this encounter Visit Diagnoses Not on filedocumented in this encounter Care Teams Oncology Pharmacist Relationship Specialty Start Date End Date Jay Howell MD [address] [place] [phone] PCP - General Emergency Medicine 11/12/23 documented as of this encounter
--- OUTSIDE RECORDS SUMMARY | 2025-07-12 08:36 | XMS_ITS | Clinical Summary ---
Author Organization [facility] Address [address] [place] [address], [address] [place] [address] Care Team Providers Care Basket Hand Braider Name Role Phone Jay Howell MD Primary Care Provider [phone] Allergies Active Allergy Reactions Criticality Noted Date Comments Nitrofurantoin Hives,Itching,Other (See Comments),Rash Medium 06/14/2013 Macrobid Medications No known medications Encounters Date Type Department Care Team Description 04/25/2025 3:00 PM EDT Office Visit [facility], [place] [address] Luis Upton MD Nontraumatic complete tear of left rotator cuff (Primary Dx); Arthritis of left glenohumeral joint from Last 3 Months Social History Tobacco Use Types Packs/Day Years Used Date Smoking Tobacco: Never Smokeless Tobacco: Never Tobacco Cessation:Counseling Given: Not Answered Comments Unknown Sex and Gender Information Value Date Recorded Sex Assigned at Not on file Legal Sex Female 6:41 PM EDT Gender Identity Not on file Sexual Orientation Not on file Last Filed Vital Signs Vital Sign Reading Time Taken Comments Blood Pressure - - Pulse - - Temperature - - Respiratory Rate - - Oxygen Saturation - - Inhaled Oxygen Concentration - - Weight 55.3 kg (122 lb) 04/25/2025 2:59 PM EDT Height 157.5 cm (5' 2 ) 04/25/2025 2:59 PM EDT Body Mass Index 22.31 04/25/2025 2:59 PM EDT Plan of Treatment Health Maintenance Due Date Last Done Comments Depression Screen 1952 Shingles vaccine (1 of 2) 12/23/1989 DEXA (modify frequency per FRAX score) 12/23/1994 Respiratory Syncytial Virus (RSV) or age 60 yrs+ (1 - 1-dose 75+ series) 12/23/2014 Annual Wellness Visit (Medicare) 06/07/2024 Flu vaccine (#1) 05/17/2025 07/06/2021, , 08/02/2019, Additional history exists COVID-19 Vaccine ( season) 2025 12/09/2021, 02/17/2021, 01/27/2021 DTaP/Tdap/Td vaccine (2 - Td or Tdap) 01/19/2034 01/20/2024, 07/26/2011, 07/07/2005 Pneumococcal 50+ years Vaccine Completed 09/22/2017, 07/26/2013, 07/23/2010, Additional history exists Hepatitis A vaccine Aged Out No longe r eligible based on patient's age to complete this topic Hepatitis B vaccine Aged Out No longe r eligible based on patient's age to complete this topic Hib vaccine Aged Out No longer eligi ble based on patient's age to complete this topic Meningococcal (ACWY) vaccine Aged Out No longer eligible based on patient's age to complete this topic Meningococcal B vaccine Aged Out No l onger eligible based on patient's age to complete this topic Polio vaccine Aged Out No longer elig ible based on patient's age to complete this topic Procedures Procedure Name Priority Date/Time Associated Diagnosis Comments DRAIN/INJECT LARGE JOINT/BURSA Routine 04/25/2025 4:29 PM EDT Nontraumatic complete tear of left rotator cuff Arthritis of left glenohumeral joint from Last 3 Months Insurance MEDICARE Member Subscriber Plan / Payer (Ef fective 1996-Present) Name:Miladis Montoya Relation to Subscriber:Self Name:Miladis Montoya Payer ID:Not on file Group ID:Not on file Type:Not on file Address: [place] [id number] Care Teams Basket Hand Braider Relationship Specialty Start Date End Date Jay Howell MD [address] [place] [address] [place] [phone] PCP - General Emergency Medicine 03/06/25
--- OUTSIDE RECORDS SUMMARY | 2025-07-12 08:36 | XMS_ITS | Encounter Summary ---
Author Organization [employer] ([place], [place], [place], [place]) Address [address] [place] [address] Care Team Providers Care Candy Puller Name Role Phone Jay Howell MD Primary Care Provider [phone] Encounter Details Date Type Department Care Team (Late st Contact Info) Description 08/25/2020 Transcribed Document [facility] Family Medicine [address] [place] [address] ProviderJessie MD [address] [place] [address] Social History Tobacco Use Types Packs/Day Years Used Date Smoking Tobacco: Never Assessed Comments Unknown Sex and Gender Information Value Date Recorded Sex Assigned at Not on file Legal Sex Female 7:30 PM CDT Gender Identity Not on file Sexual Orientation Not on file documented as of this encounter Miscellaneous Notes * Cerner Conversion Note - Jessie ProviderMD - 08/25/2020 4:33 AM [employer] ED Triage Entered On: 08/25/2020 4:45 EST Performed On: 08/25/2020 4:41 EST by Deisi Vasquez RN ED Triage Across the Room Chief Complaint : pt to ED from home for leg wound. pt seen here Tuesday for same. pt also c/o nausea that started on the way to ED Triage Date/Time : 08/25/2020 4:41 EST Deisi Vasquez RN - 08/25/2020 4:41 EST DCP GENERIC CODE Tracking Acuity : 3 - Urgent Tracking Group : [facility] ED Deisi Vasquez RN - 08/25/2020 4:41 EST Mode of Arrival : Ambulatory Transported to ED by : Private vehicle To Room Via : Ambulate Accompanied By : Spouse ED Vital Signs : Document Height & Weight : Document ED Allergies : Document ED Reason for Visit : Document Tetanus Immunization : Less than 5 years Deisi Vasquez RN - 08/25/2020 4:41 EST Infectious Disease History Has the patient ever been tested for COVID-19? : Yes, Patient stated results Negative Date of COVID-19 test known? : No Does patient have symptoms of COVID-19? : No COVID19 Screening : No Experiencing Infectious Disease Symptoms : No symptoms Physical contact outside [place] in the last 30 days : No Infectious Disease History : Chicken pox/Shingles, Measles, Mumps Tuberculosis Symptoms : None Deisi Vasquez RN - 08/25/2020 4:41 EST Vital Signs ED Temperature Source : Oral Temperature Mode : Fahrenheit Temperature, Fahrenheit : 98.4 Deg F ED Pain : No Clinical Temperature, C : 36.9 Deg C Oxygen Therapy Mode : Room air Peripheral Pulse Rate : 81 bpm Respiratory Rate : 16 Breaths/Min Oxygen Saturation : 97 % Deisi Vasquez RN - 08/25/2020 4:41 EST Allergy (As Of: 08/25/2020 04:45:44 EST) Allergies (Active) Macrodantin Estimated Onset Date: Unspecified ; Created By: KENYON CHAMBERS RN; Reaction Status: Active ; Category: Drug ; Substance: Macrodantin ; Type: Allergy ; Updated By: KENYON CHAMBERS RN; Reviewed Date: 08/25/2020 4:43 EST morphine Estimated Onset Date: Unspecified ; Reactions: rash, rash ; Created By: AUSTIN Nuñez; Reaction Status: Active ; Category: Drug ; Substance: morphine ; Type: Allergy ; Updated By: AUSTIN Nuñez; Reviewed Date: 08/25/2020 4:43 EST nitrofurantoin Estimated Onset Date: Unspecified ; Reactions: blisters, blisters ; Created By: AUSTIN Nuñez; Reaction Status: Active ; Category: Drug ; Substance: nitrofurantoin ; Type: Allergy ; Updated By: AUSTIN Nuñez; Reviewed Date: 08/25/2020 4:43 EST Diagnosis Control ED (As Of: 08/25/2020 04:45:44 EST) Problems(Active) Apnea, sleep (SNOMED CT :755060943 ) Name of Problem: Apnea, sleep ; Recorder: JUAN LUIS GIL RN; Confirmation: Confirmed ; Classification: Medical ; Code: [id number] ; Contributor System: PowerChart ; Last Updated: 11/12/2014 10:12 EST ; Life Cycle Date: 11/12/2014 ; Life Cycle Status: Active ; Vocabulary: SNOMED CT Arthritis (SNOMED CT :4043295 ) Name of Problem: Arthritis ; Recorder: KENYON CHAMBERS RN; Confirmation: Confirmed ; Classification: Medical ; Code: [id number] ; Contributor System: PowerChart ; Last Updated: 04/10/2016 8:04 EDT ; Life Cycle Date: 08/13/2013 ; Life Cycle Status: Active ; Vocabulary: SNOMED CT Atrial fibrillation with RVR (SNOMED CT :0760325348 ) Name of Problem: Atrial fibrillation with RVR ; Recorder: SANG RICO APRN; Confirmation: Confirmed ; Classification: Medical ; Code: [id number] ; Contributor System: PowerChart ; Last Updated: 04/10/2016 8:05 EDT ; Life Cycle Date: 04/10/2016 ; Life Cycle Status: Active ; Responsible Provider: SANG RICO APRN; Vocabulary: SNOMED CT Blood clot (SNOMED CT :685325335 ) Name of Problem: Blood clot ; Recorder: KENYON CHAMBERS RN; Confirmation: Confirmed ; Classification: Patient Stated ; Code: [id number] ; Contributor System: PowerChart ; Last Updated: 04/02/2014 11:08 EDT ; Life Cycle Date: 08/13/2013 ; Life Cycle Status: Active ; Vocabulary: SNOMED CT Cataract (Patient Care : ) Name of Problem: Cataract ; Recorder: KENYON CHAMBERS RN; Confirmation: Confirmed ; Classification: Medical ; Contributor System: PowerChart ; Last Updated: 04/10/2016 8:03 EDT ; Life Cycle Date: 08/13/2013 ; Life Cycle Status: Active ; Vocabulary: Patient Care Chest pain (SNOMED CT :82458702 ) Name of Problem: Chest pain ; Recorder: SANG RICO APRN; Confirmation: Complaint of ; Classification: Medical ; Code: [id number] ; Contributor System: RatherGatherChart ; Last Updated: 04/10/2016 8:05 EDT ; Life Cycle Status: Active ; Responsible Provider: SANG RICO APRN; Vocabulary: SNOMED CT Chronic anticoagulation (SNOMED CT :228878512 ) Name of Problem: Chronic anticoagulation ; Recorder: SANG RICO APRN; Confirmation: Confirmed ; Classification: Medical ; Code: [id number] ; Contributor System: PowerChart ; Last Updated: 04/10/2016 8:05 EDT ; Life Cycle Date: 04/10/2016 ; Life Cycle Status: Active ; Responsible Provider: SANG RICO APRN; Vocabulary: SNOMED CT Clotting disorder (SNOMED CT :116875826 ) Name of Problem: Clotting disorder ; Recorder: KENYON CHAMBERS RN; Confirmation: Confirmed ; Classification: Patient Stated ; Code: [id number] ; Contributor System: RatherGatherChart ; Last Updated: 03/28/2014 19:29 EDT ; Life Cycle Date: 08/13/2013 ; Life Cycle Status: Active ; Vocabulary: SNOMED CT COPD (SNOMED CT :08675720 ) Name of Problem: COPD ; Recorder: KENYON CHAMBERS RN; Confirmation: Confirmed ; Classification: Medical ; Code: [id number] ; Contributor System: RatherGatherChart ; Last Updated: 04/10/2016 8:03 EDT ; Life Cycle Date: 08/13/2013 ; Life Cycle Status: Active ; Vocabulary: SNOMED CT Coronary artery disease (SNOMED CT :4334526499 ) Name of Problem: Coronary artery disease ; Recorder: KENYON CHAMBERS RN; Confirmation: Confirmed ; Classification: Medical ; Code: [id number] ; Contributor System: RatherGatherChart ; Last Updated: 04/10/2016 8:03 EDT ; Life Cycle Date: 08/13/2013 ; Life Cycle Status: Active ; Vocabulary: SNOMED CT Diabetes mellitus (SNOMED CT :825967997 ) Name of Problem: Diabetes mellitus ; Recorder: KENYON CHAMBERS RN; Confirmation: Confirmed ; Classification: Medical ; Code: 750651310 ; Contributor System: RatherGatherChart ; Last Updated: 04/10/2016 8:04 EDT ; Life Cycle Date: 08/13/2013 ; Life Cycle Status: Active ; Vocabulary: SNOMED CT Emphysema (SNOMED CT :081497585 ) Name of Problem: Emphysema ; Recorder: JUAN LUIS GIL RN; Confirmation: Confirmed ; Classification: Medical ; Code: [id number] ; Contributor System: PowerChart ; Last Updated: 11/12/2014 10:11 EST ; Life Cycle Date: 11/12/2014 ; Life Cycle Status: Active ; Vocabulary: SNOMED CT GERD - Gastro-esophageal reflux disease (SNOMED CT :3023108751 ) Name of Problem: GERD - Gastro-esophageal reflux disease ; Recorder: KENYON CHAMBERS RN; Confirmation: Confirmed ; Classification: Medical ; Code: [id number] ; Contributor System: PowerChart ; Last Updated: 04/10/2016 8:03 EDT ; Life Cycle Date: 08/13/2013 ; Life Cycle Status: Active ; Vocabulary: SNOMED CT Glaucoma (Patient Care : ) Name of Problem: Glaucoma ; Recorder: KENYON CHAMBERS RN; Confirmation: Confirmed ; Classification: Medical ; Contributor System: PowerChart ; Last Updated: 04/10/2016 8:03 EDT ; Life Cycle Date: 08/13/2013 ; Life Cycle Status: Active ; Vocabulary: Patient Care High blood pressure (SNOMED CT :14647900 ) Name of Problem: High blood pressure ; Recorder: KENYON CHAMBERS RN; Confirmation: Confirmed ; Classification: Medical ; Code: 74762563 ; Contributor System: PowerChart ; Last Updated: 04/10/2016 8:03 EDT ; Life Cycle Date: 08/13/2013 ; Life Cycle Status: Active ; Vocabulary: SNOMED CT History of obstructive sleep apnea (IMO :89325248 ) Name of Problem: History of obstructive sleep apnea ; Recorder: SYSTEM, SYSTEM; Confirmation: Confirmed ; Classification: Medical ; Code: 37046702 ; Last Updated: 12/20/2018 12:01 EST ; Life Cycle Date: 12/20/2018 ; Life Cycle Status: Active ; Vocabulary: IMO Hx of pulmonary embolus (SNOMED CT :123444412 ) Name of Problem: Hx of pulmonary embolus ; Recorder: SANG RICO APRN; Confirmation: Confirmed ; Classification: Medical ; Code: 638872789 ; Contributor System: PowerChart ; Last Updated: 04/10/2016 8:05 EDT ; Life Cycle Date: 04/10/2016 ; Life Cycle Status: Active ; Responsible Provider: SANG RICO APRN; Vocabulary: SNOMED CT Hyperlipidemia (SNOMED CT :61764650 ) Name of Problem: Hyperlipidemia ; Recorder: KENYON CHAMBERS RN; Confirmation: Confirmed ; Classification: Medical ; Code: 77400760 ; Contributor System: PowerChart ; Last Updated: 04/10/2016 8:03 EDT ; Life Cycle Date: 08/13/2013 ; Life Cycle Status: Active ; Vocabulary: SNOMED CT Multiple renal cysts (SNOMED CT :398232927 ) Name of Problem: Multiple renal cysts ; Recorder: KENYON CHAMBERS RN; Confirmation: Confirmed ; Classification: Medical ; Code: 560439891 ; Contributor System: PowerChart ; Last Updated: 04/10/2016 8:04 EDT ; Life Cycle Date: 08/13/2013 ; Life Cycle Status: Active ; Vocabulary: SNOMED CT Stented coronary artery (SNOMED CT :6897796765 ) Name of Problem: Stented coronary artery ; Recorder: KENYON CHAMBERS RN; Confirmation: Confirmed ; Classification: Medical ; Code: 5704843785 ; Contributor System: PowerChart ; Last Updated: 04/10/2016 8:03 EDT ; Life Cycle Date: 08/13/2013 ; Life Cycle Status: Active ; Vocabulary: SNOMED CT UTI - Urinary tract infection (SNOMED CT :3967478471 ) Name of Problem: UTI - Urinary tract infection ; Recorder: KENYON CHAMBERS RN; Confirmation: Confirmed ; Classification: Medical ; Code: [id number] ; Contributor System: PowerChart ; Last Updated: 04/10/2016 8:04 EDT ; Life Cycle Date: 08/13/2013 ; Life Cycle Status: Active ; Vocabulary: SNOMED CT Diagnoses(Active) Medical screening exam Date: 08/25/2020 ; Diagnosis Type: Reason For Visit ; Confirmation: Complaint of ; Clinical Dx: Medical screening exam ; Classification: Medical ; Clinical Service: Non-Specified ; Code: PNED ; Probability: 0 ; Diagnosis Code: [id number] ED Height and Weight Height Source : Stated Height Entry Format : Jack Height, Feet : 5 ft(Converted to: 152 cm, 60 Inch) Height, Inches : 3 Inch(Converted to: 0 ft 3 Inch, 7.62 cm) Clinical Height : 160.02 cm Weight Source, ED : Critical estimated dosing weight Weight Entry Format : Jack Weight, Pounds : 152 lb Clinical Dosing Weight : 69.09 kg Body Surface Area (BSA) : 1.72 m2 Body Mass Index : 27 kg/m2 (HI) Johnston Body Weight (IBW) : 52.02 kg Deisi Vasquez RN - 08/25/2020 4:41 EST Electronically signed by [facility], [facility] Conversion Trouble Locator Test Desk Cerner at 02/04/2023 1:59 PM CDT documented in this encounter Plan of Treatment Not on file documented as of this encounter Visit Diagnoses Not on filedocumented in this encounter Care Teams Candy Puller Relationship Specialty Start Date End Date Jay Howell MD [address] [place] [phone] PCP - General Emergency Medicine 11/12/23 documented as of this encounter
--- OUTSIDE RECORDS SUMMARY | 2025-07-12 08:36 | XMS_ITS | Encounter Summary ---
Author Organization [facility] ([place], [place], [place], [place]) Address [address] [place] [address] Care Team Providers Care Experimental [employer]ic [employer] Name Role Phone Jay Howell MD Primary Care Provider [phone] Encounter Details Date Type Department Care Team (Late st Contact Info) Description 03/17/2021 Transcribed Document [facility] Cardiology [address] [place], [place] [id number] Jorje Bení[place] [address] [place] [address] [address] [place] [address] Social History Tobacco Use Types Packs/Day Years Used Date Smoking Tobacco: Never Assessed Comments Unknown Sex and Gender Information Value Date Recorded Sex Assigned at Not on file Legal Sex Female 7:30 PM CDT Gender Identity Not on file Sexual Orientation Not on file documented as of this encounter Miscellaneous Notes * Cerner Conversion Note - Jorje Benítez MD - 03/17/2021 10:01 AM EDT Patient: SKYLER MONTOYA Age: 80 years Sex: Female : 1940 Associated Diagnoses: None Author: JORJE BENÍTEZ MD-[facility] Basic Information Sulfonation Equipment Operator: Dr. Adry Dumas Chief Complaint Syncope History of Present Illness The patient is an unfortunate 80-year-old female with a known history atherosclerotic cardiovascular disease???status post coronary artery bypass grafting as well as multiple PCI's most recently 2019, hypertension, dyslipidemia, paroxysmal/persistent atrial fibrillation on chronic warfarin, history of carotid disease, anxiety, diabetes mellitus type 2, COPD, and DVT/pulmonary embolism who presented to [facility] after suffering a several episode at home. Per report patient fell and hit her head along with her right upper arm. She was found to have a wrist fracture. Cardiology has been asked to see into the management of her care and to attempt to identify the cause of her syncopal episode. Currently she has no specific complaints of chest pain, palpitations, dizziness, or edema. She does voice that he may have had a UTI. At the time of this assessment patient comfortably in no acute cardiac distress. Review of Systems Constitutional: Negative except as documented in history of present illness. Eye: Negative except as documented in history of present illness. Ear/Nose/Mouth/Throat: Negative except as documented in history of present illness. Respiratory: Negative except as documented in history of present illness. Cardiovascular: Negative except as documented in history of present illness. Gastrointestinal: Negative except as documented in history of present illness. Genitourinary: Negative except as documented in history of present illness. Hematology/Lymphatics: Negative except as documented in history of present illness. Endocrine: Negative except as documented in history of present illness. Immunologic: Negative except as documented in history of present illness. Musculoskeletal: Negative except as documented in history of present illness. Integumentary: Negative except as documented in history of present illness. Neurologic: Negative except as documented in history of present illness. Psychiatric: Negative except as documented in history of present illness. ROS reviewed as documented in chart Health Status Allergies (1) Active Reaction Macrodantin None Documented Home Medications (15) Active atorvastatin 80 mg oral tablet 80 mg = 1 Tab, Oral, At Bedtime carvedilol 6.25 mg oral tablet 6.25 mg = 1 Tab, Oral, TID Coumadin 3 mg oral tablet 3 mg = 1 Tab, Oral, Daily dorzolamide 2% ophthalmic solution 1 Drop, Eye Right, BID hydrALAZINE 100 mg oral tablet 100 mg = 1 Tab, Oral, BID lactobacillus acidophilus oral tablet 2 Tab, Oral, Daily Lidoderm 5% topical film 1 Patch, TransDermal, Daily losartan 100 mg oral tablet 100 mg = 1 Tab, Oral, Daily metFORMIN 500 mg oral tablet, extended release 500 mg = 1 Tab, Oral, BID With Meals Multiple Vitamins oral tablet 1 Tab, Oral, Daily [place] 7.5 mg-325 mg oral tablet 1 Tab, PRN, Oral, Q6H Norvasc 10 mg oral tablet 10 mg = 1 Tab, Oral, Daily omeprazole 40 mg oral delayed release capsule 40 mg = 1 Cap, Oral, Daily Ranexa 500 mg oral tablet, extended release 1,000 mg = 2 Tab, Oral, BID Xanax 0.5 mg oral tablet 0.5 mg = 1 Tab, PRN, Oral, At Bedtime Problem list: All Problems Arthritis / 3475855 / Confirmed Atrial fibrillation with RVR / 8245215099 / Confirmed Blood clot / 479936097 / Confirmed Cataract / Confirmed Chest pain / 50416639 / Complaint of Clotting disorder / 780686870 / Confirmed COPD / 17697058 / Confirmed Coronary artery disease / 3903892447 / Confirmed Diabetes mellitus / 780505343 / Confirmed GERD - Gastro-esophageal reflux disease / 6281818255 / Confirmed Glaucoma / Confirmed Chronic anticoagulation / 222405639 / Confirmed Hx of pulmonary embolus / 848149634 / Confirmed High blood pressure / 87879733 / Confirmed History of obstructive sleep apnea / 21720892 / Confirmed Hyperlipidemia / 35838108 / Confirmed Multiple renal cysts / 370466023 / Confirmed Emphysema / 338782451 / Confirmed Apnea, sleep / 889860140 / Confirmed Stented coronary artery / 1378508620 / Confirmed Resolved: UTI - Urinary tract infection / 7502777711 Canceled: History of obstructive sleep apnea / 20131116 Histories No education data available. Social & Psychosocial Habits Alcohol 08/13/2013 Alcohol Use in Last Twelve Months No Home/Environment 12/14/2014 Lives with: Spouse Living situation: Home/Independent Nutrition/Health 08/06/2014 Caffeine intake amount: 2 Substance Abuse 08/13/2013 Recreational Drug Use History No Tobacco 11/23/2016 Smoking Status Former smoker Comment: quite 1992 - 11/23/2016 13:03 - DAVIDA ISAAC RN Past Medical History: Active Cataract Glaucoma Coronary artery disease (0919302349) Stented coronary artery (0536014951) High blood pressure (17367608) Hyperlipidemia (28342252) COPD (59853664) GERD - Gastro-esophageal reflux disease (7378628303) Multiple renal cysts (606133819) Arthritis (6231341) Diabetes mellitus (695637923) Emphysema (858653159) Apnea, sleep (341768716) Hx of pulmonary embolus (093967850) Chronic anticoagulation (333212475) Atrial fibrillation with RVR (0994299730) Resolved UTI - Urinary tract infection (8852627908): Resolved. Family History: Cardiomyopathy Child Stroke Brother Heart attack Brother Sister Leukemia Child Cancer Father Mother Sister Coronary heart disease Child Procedure history: Cardiac Stent on 12/20/2018 at 77 Years. Comments: 03/17/2021 9:03 EVA LAWS RN HARVINDER to LAD Cardiac Stent in 2010 at 70 Years. Cardiac Stent on 01/30/2008 at 67 Years. Comments: 06/13/2020 8:52 EVA LAWS RN PCI w/ [place] stent to D1 Coronary artery bypass graft ([id number]) in 1992 at 52 Years. Appendectomy (882131768). back surgury. cataract surgury. Cholecystectomy (90037559). femur repair. Hip replacement (4851299822). Hysterectomy (293085987). uterine suspension. Physical Examination VS/Measurements Vitals Signs (last 24 hrs) Last Charted Minimum Maximum Temp 98.7 (MAR 17 06:26) 97.3 (MARCH 16 11:32) 98.7 (MAR 17 06:26) Apical HR 82 (MAR 17 06:34) 82 (MAR 17 06:34) 82 (MAR 17 06:34) Mon HR 75 (MAR 17 07:37) 56 (MARCH 16 12:00) 94 (MARCH 16 14:00) Periph HR 61 (MARCH 16 11:32) 61 (MARCH 16 11:32) 61 (MARCH 16 11:32) Resp Rate 18 (MAR 17 06:26) 16 (MARCH 16 11:32) H 21 (MARCH 16 13:00) SBP H 170 (MAR 17 07:37) H 151 (MARCH 16 13:00) H 179 (MAR 17 06:26) DBP 63 (MAR 17 07:37) 63 (MAR 17 07:37) 68 (MARCH 16 11:32) MAP 88 (MAR 17 07:37) 88 (MAR 17 07:37) 106 (MARCH 16 12:00) SpO2 94 (MAR 17 07:37) L 93 (MAR 17 06:26) 100 (MARCH 16 11:32) General: Alert and oriented, No acute distress. Eye: Pupils are equal, round and reactive to light, Extraocular movements are intact. HENT: Normocephalic, Tympanic membranes are clear, Oral mucosa is moist. Neck: Supple, Non-tender. Respiratory: Respirations are non-labored, Symmetrical chest wall expansion. Cardiovascular: Normal rate, Regular rhythm, Good pulses equal in all extremities, Normal peripheral perfusion. Gastrointestinal: Soft, Non-tender, Non-distended, Normal bowel sounds. Genitourinary: No costovertebral angle tenderness. Musculoskeletal: Normal range of motion, Normal strength. Integumentary: Warm, Dry, Intact. Neurologic: Alert, Oriented, No focal deficits. Psychiatric: Cooperative, Appropriate mood & affect. Review / Management MAR 17 03:42 137 108 12 / H 177 3.7 23 0.60 \ MAR 17 03:42 \ L 10.9 / 10.0 164 / L 33.6 \ Cardiac Markers (Current Encounter/Past 24 Hours) ProBNP 576 pg/mL SD 03/17/2021 04:45 Blood Gases (Current Encounter/Past 24 Hours) No Blood Gas Results Found (Past 24 Hours) Radiology Results (Last 48 hours) [id number] -- 03/16/2021 15:29 CR Hip Uni Comp Min 2 Vws RT (03/16/2021 12:03) Result: RIGHT HIP SERIES.HISTORY: Right hip pain, fall.FINDINGS: Two views show no evidence of an acute, displaced fracture ordislocation of the visualized bony architecture. There are changes fromprior right hip arthroplasty. There are moderate left hip degenerativefindings.IMPRESSION: No acute fracture.PORTABLE CHEST HISTORY: Precordial chest pain, fall.COMPARISON: August 2020.FINDINGS: The heart is normal in size. The mediastinum is unremarkable. Diffuse interstitial changes are probably chronic. The lungs areotherwise clear . There is no pneumothorax. The osseous structures areunremarkable. IMPRESSION: No acute cardiopulmonary process.Continued follow-up is recommended. LEFT KNEE SERIES.HISTORY: Left knee pain, fall.FINDINGS:Four views show no evidence of an acute, displaced fracture ordislocation of the visualized bony architecture. The joint spaces appearnormal. There are vascular calcifications. No effusion identified. IMPRESSION: No acute fracture.RIGHT WRIST SERIES.HISTORY: Right wrist pain, fall.COMPARISON:NoneFINDINGS: A three view exam demonstrates a comminuted, intra-articulardistal radial fracture. There is an ulnar styloid fracture. No otherfracture identified. There is osteopenia. There are vascularcalcifications.IMPRESSION: Wrist fractures as above. Images reviewed, interpreted, and dictated by Dr. Charlette Herrera.Transcribed by Kitty Villarreal PA-C.I have personally viewed, interpreted and dictated the examination. Ihave read and agree with the above final transcribed report. CR Knee Min 4 Vws LT (03/16/2021 12:08) Result: RIGHT HIP SERIES.HISTORY: Right hip pain, fall.FINDINGS: Two views show no evidence of an acute, displaced fracture ordislocation of the visualized bony architecture. There are changes fromprior right hip arthroplasty. There are moderate left hip degenerativefindings.IMPRESSION: No acute fracture.PORTABLE CHEST HISTORY: Precordial chest pain, fall.COMPARISON: August 2020.FINDINGS: The heart is normal in size. The mediastinum is unremarkable. Diffuse interstitial changes are probably chronic. The lungs areotherwise clear . There is no pneumothorax. The osseous structures areunremarkable. IMPRESSION: No acute cardiopulmonary process.Continued follow-up is recommended. LEFT KNEE SERIES.HISTORY: Left knee pain, fall.FINDINGS:Four views show no evidence of an acute, displaced fracture ordislocation of the visualized bony architecture. The joint spaces appearnormal. There are vascular calcifications. No effusion identified. IMPRESSION: No acute fracture.RIGHT WRIST SERIES.HISTORY: Right wrist pain, fall.COMPARISON:NoneFINDINGS: A three view exam demonstrates a comminuted, intra-articulardistal radial fracture. There is an ulnar styloid fracture. No otherfracture identified. There is osteopenia. There are vascularcalcifications.IMPRESSION: Wrist fractures as above. Images reviewed, interpreted, and dictated by Dr. Charlette Herrera.Transcribed by Kitty Villarreal PA-C.I have personally viewed, interpreted and dictated the examination. Rhianna read and agree with the above final transcribed report. CR Wrist Min 3 Vws RT (03/16/2021 12:13) Result: RIGHT HIP SERIES.HISTORY: Right hip pain, fall.FINDINGS: Two views show no evidence of an acute, displaced fracture ordislocation of the visualized bony architecture. There are changes fromprior right hip arthroplasty. There are moderate left hip degenerativefindings.IMPRESSION: No acute fracture.PORTABLE CHEST HISTORY: Precordial chest pain, fall.COMPARISON: August 2020.FINDINGS: The heart is normal in size. The mediastinum is unremarkable. Diffuse interstitial changes are probably chronic. The lungs areotherwise clear . There is no pneumothorax. The osseous structures areunremarkable. IMPRESSION: No acute cardiopulmonary process.Continued follow-up is recommended. LEFT KNEE SERIES.HISTORY: Left knee pain, fall.FINDINGS:Four views show no evidence of an acute, displaced fracture ordislocation of the visualized bony architecture. The joint spaces appearnormal. There are vascular calcifications. No effusion identified. IMPRESSION: No acute fracture.RIGHT WRIST SERIES.HISTORY: Right wrist pain, fall.COMPARISON:NoneFINDINGS: A three view exam demonstrates a comminuted, intra-articulardistal radial fracture. There is an ulnar styloid fracture. No otherfracture identified. There is osteopenia. There are vascularcalcifications.IMPRESSION: Wrist fractures as above. Images reviewed, interpreted, and dictated by Dr. Charlette Herrera.Transcribed by Kitty Villarreal PA-C.Sharifa have personally viewed, interpreted and dictated the examination. Rhianna read and agree with the above final transcribed report. CR Chest 1 Vw Portable (03/16/2021 12:36) Result: RIGHT HIP SERIES.HISTORY: Right hip pain, fall.FINDINGS: Two views show no evidence of an acute, displaced fracture ordislocation of the visualized bony architecture. There are changes fromprior right hip arthroplasty. There are moderate left hip degenerativefindings.IMPRESSION: No acute fracture.PORTABLE CHEST HISTORY: Precordial chest pain, fall.COMPARISON: August 2020.FINDINGS: The heart is normal in size. The mediastinum is unremarkable. Diffuse interstitial changes are probably chronic. The lungs areotherwise clear . There is no pneumothorax. The osseous structures areunremarkable. IMPRESSION: No acute cardiopulmonary process.Continued follow-up is recommended. LEFT KNEE SERIES.HISTORY: Left knee pain, fall.FINDINGS:Four views show no evidence of an acute, displaced fracture ordislocation of the visualized bony architecture. The joint spaces appearnormal. There are vascular calcifications. No effusion identified. IMPRESSION: No acute fracture.RIGHT WRIST SERIES.HISTORY: Right wrist pain, fall.COMPARISON:NoneFINDINGS: A three view exam demonstrates a comminuted, intra-articulardistal radial fracture. There is an ulnar styloid fracture. No otherfracture identified. There is osteopenia. There are vascularcalcifications.IMPRESSION: Wrist fractures as above. Images reviewed, interpreted, and dictated by Dr. Charlette Herrera.Transcribed by Kitty Villarreal PA-C.I have personally viewed, interpreted and dictated the examination. Ihave read and agree with the above final transcribed report. CT Abdomen Pelvis WO (03/16/2021 13:08) Result: CT SCAN OF THE ABDOMEN AND PELVIS WITH CONTRAST. HISTORY: Abdominal pain, nausea, vomiting, fall.COMPARISON: None .PROCEDURE: The patient was injected with IV contrast. Axial images wereobtained from the lung bases to the pubic symphysis by computedtomography. This study was performed with techniques to keep radiationdoses as low as reasonably achievable, (ALARA). Automatic exposurecontrol and/or changing of the mA/ kV according to patient size wereutilized for radiation dose reduction.FINDINGS: ABDOMEN: The lung bases are clear. The heart is normal in size. Theliver is mildly lobulated. There are clips from prior cholecystectomy.The spleen is prominent. No adrenal mass is present. The pancreas isnormal. There are two 15 mm hyperdense lesions in the lower pole of theright kidney. These are likely hemorrhagic cysts. There is a 35 mmhypodense right renal lesion that is likely a simple cyst. There aremultiple exophytic left renal lesions that are likely complex and simplecysts. The cysts cannot be completely characterized without contrast.There is a tiny stone in the left kidney. There is no hydronephrosis.The aorta is normal in caliber. There is no free fluid or adenopathy. PELVIS: The patient is status post hysterectomy. There is diverticulosisof the sigmoid colon. The appendix is not identified. The urinarybladder is unremarkable. There is no significant free fluid oradenopathy. IMPRESSION: Renal lesions as above.No acute intra-abdominal or intrapelvic process.CT LUMBAR SPINEHISTORY: Low back pain, fall. PROCEDURE: Axial images were obtained through the lumbar spine bycomputed tomography. Sagittal and coronal reformatted images were alsoperformed. This study was performed with techniques to keep radiationdoses as low as reasonably achievable, (ALARA). Automatic exposurecontrol and/or changing of the mA/ kV according to patient size wereutilized for radiation dose reduction.FINDINGS: There is degenerative disc disease. There is osteopenia. Thereis interbody fusion at L4-L5. There is marked narrowing at L5-S1. Thereis moderate central canal stenosis and neural foraminal narrowing atL3-L4 from a calcified disc bulge. There is no acute fracture.IMPRESSION: No acute osseous abnormality.Postoperative and degenerative findings as above. Images reviewed, interpreted, and dictated by Dr. Charlette Herrera.Transcribed by Kitty Villarreal PA-C.I have personally viewed, interpreted and dictated the examination. Ihave read and agree with the above final transcribed report. CT Head WO (03/16/2021 13:08) Result: HEAD CT HISTORY: Headache, fall.COMPARISON: None .TECHNIQUE: Multiple axial CT images were performed from the foramenmagnum to the vertex without enhancement. This study was performed withtechniques to keep radiation doses as low as reasonably achievable,(ALARA). Automatic exposure control and/or changing of the mA/ kVaccording to patient size were utilized for radiation dose reduction.FINDINGS: The ventricles are normal in size. There is no evidence ofhemorrhage . No masses are identified. No extra-axial fluid is seen. The sinuses are normal. IMPRESSION: No acute intracranial process. CT CERVICAL SPINE. HISTORY: Status post fall with neck pain.COMPARISON: None .PROCEDURE: Axial images were obtained from the skull base to thethoracic inlet by computed tomography. Sagittal and coronal reformattedimages were performed and reviewed. This study was performed withtechniques to keep radiation doses as low as reasonably achievable,(ALARA). Automatic exposure control and/or changing of the mA/ kVaccording to patient size were utilized for radiation dose reduction.FINDINGS: There are carotid calcifications. There is severe degenerativedisc disease. There is minimal anterolisthesis of C5 on C6. There issevere disc space narrowing at C6-C7. There is multilevel central [place] bilateral neural foraminal narrowing in the mid and lower cervicalspine. There is no acute fracture identified.IMPRESSION: Degenerative findings with no acute osseous abnormality. Images reviewed, interpreted, and dictated by Dr. Charlette Herrera.Transcribed by Kitty Villarreal PA-C.I have personally viewed, interpreted and dictated the examination. Ihave read and agree with the above final transcribed report. CT Spine Cervical WO (03/16/2021 13:08) Result: HEAD CT HISTORY: Headache, fall.COMPARISON: None .TECHNIQUE: Multiple axial CT images were performed from the foramenmagnum to the vertex without enhancement. This study was performed withtechniques to keep radiation doses as low as reasonably achievable,(ALARA). Automatic exposure control and/or changing of the mA/ kVaccording to patient size were utilized for radiation dose reduction.FINDINGS: The ventricles are normal in size. There is no evidence ofhemorrhage . No masses are identified. No extra-axial fluid is seen. The sinuses are normal. IMPRESSION: No acute intracranial process. CT CERVICAL SPINE. HISTORY: Status post fall with neck pain.COMPARISON: None .PROCEDURE: Axial images were obtained from the skull base to thethoracic inlet by computed tomography. Sagittal and coronal reformattedimages were performed and reviewed. This study was performed withtechniques to keep radiation doses as low as reasonably achievable,(ALARA). Automatic exposure control and/or changing of the mA/ kVaccording to patient size were utilized for radiation dose reduction.FINDINGS: There are carotid calcifications. There is severe degenerativedisc disease. There is minimal anterolisthesis of C5 on C6. There issevere disc space narrowing at C6-C7. There is multilevel central [place] bilateral neural foraminal narrowing in the mid and lower cervicalspine. There is no acute fracture identified.IMPRESSION: Degenerative findings with no acute osseous abnormality. Images reviewed, interpreted, and dictated by Dr. Charlette Herrera.Transcribed by Kitty Villarreal PA-C.I have personally viewed, interpreted and dictated the examination. Ihave read and agree with the above final transcribed report. CT Spine Lumbar WO (03/16/2021 13:08) Result: CT SCAN OF THE ABDOMEN AND PELVIS WITH CONTRAST. HISTORY: Abdominal pain, nausea, vomiting, fall.COMPARISON: None .PROCEDURE: The patient was injected with IV contrast. Axial images wereobtained from the lung bases to the pubic symphysis by computedtomography. This study was performed with techniques to keep radiationdoses as low as reasonably achievable, (ALARA). Automatic exposurecontrol and/or changing of the mA/ kV according to patient size wereutilized for radiation dose reduction.FINDINGS: ABDOMEN: The lung bases are clear. The heart is normal in size. Theliver is mildly lobulated. There are clips from prior cholecystectomy.The spleen is prominent. No adrenal mass is present. The pancreas isnormal. There are two 15 mm hyperdense lesions in the lower pole of theright kidney. These are likely hemorrhagic cysts. There is a 35 mmhypodense right renal lesion that is likely a simple cyst. There aremultiple exophytic left renal lesions that are likely complex and simplecysts. The cysts cannot be completely characterized without contrast.There is a tiny stone in the left kidney. There is no hydronephrosis.The aorta is normal in caliber. There is no free fluid or adenopathy. PELVIS: The patient is status post hysterectomy. There is diverticulosisof the sigmoid colon. The appendix is not identified. The urinarybladder is unremarkable. There is no significant free fluid oradenopathy. IMPRESSION: Renal lesions as above.No acute intra-abdominal or intrapelvic process.CT LUMBAR SPINEHISTORY: Low back pain, fall. PROCEDURE: Axial images were obtained through the lumbar spine bycomputed tomography. Sagittal and coronal reformatted images were alsoperformed. This study was performed with techniques to keep radiationdoses as low as reasonably achievable, (ALARA). Automatic exposurecontrol and/or changing of the mA/ kV according to patient size wereutilized for radiation dose reduction.FINDINGS: There is degenerative disc disease. There is osteopenia. Thereis interbody fusion at L4-L5. There is marked narrowing at L5-S1. Thereis moderate central canal stenosis and neural foraminal narrowing atL3-L4 from a calcified disc bulge. There is no acute fracture.IMPRESSION: No acute osseous abnormality.Postoperative and degenerative findings as above. Images reviewed, interpreted, and dictated by Dr. Charlette Herrera.Transcribed by Kitty Villarreal PA-C.I have personally viewed, interpreted and dictated the examination. Rhianna read and agree with the above final transcribed report. Results review: Labs (Last four charted values) WBC 10.0 (MAR 17) 9.7 (MARCH 16) HB L 10.9 (MAR 17) 12.0 (MARCH 16) HCT L 33.6 (MAR 17) 37.6 (MARCH 16) Plt 164 (MAR 17) L 161 (MARCH 16) Na 137 (MAR 17) 138 (MARCH 16) K 3.7 (MAR 17) 4.4 (MARCH 16) Cl 108 (MAR 17) 107 (MARCH 16) CO2 23 (MAR 17) 27 (MARCH 16) BUN 12 (MAR 17) 21 (MARCH 16) Cr 0.60 (MAR 17) 0.90 (MARCH 16) Glu R H 177 (MAR 17) H 161 (MARCH 16) Ca 8.6 (MAR 17) 9.7 (MARCH 16) Lactic 0.8 (MAR 17) C 2.1 (MARCH 16) C 2.2 (MARCH 16) PT H 25.6 (MARCH 16) INR H 2.6 (MARCH 16) PTT H 34.1 (MARCH 16) AST 27 (MARCH 16) ALT 38 (MARCH 16) ALK P 76 (MARCH 16) T Bili 0.6 (MARCH 16) PTN H 8.8 (MARCH 16) ALB 4.2 (MARCH 16) Lipase 105 (MARCH 16) Troponin <0.015 (MAR 17) <0.015 (MARCH 16) . Impression and Plan IMPRESSION: * Syncope with collapse a. wrist fracture ( rt ) * Atherosclerotic cardiovascular disease a. History of coronary artery bypass grafting in 1992 as well as multiple PCI's most recent being in 2019 * Hypertension * Dyslipidemia * Diabetes mellitus type 2 * Paroxysmal atrial fibrillation on chronic warfarin * Chronic obstructive pulmonary disease * History of DVT/pulmonary embolism * Hx seizure disorder PLAN; EKG Echocardiogram Carotid artery duplex Gentle IV hydration Replace electrolytes Restart losartan /coreg / statin Further recommendations pending response to above documented in this encounter Plan of Treatment Not on file documented as of this encounter Visit Diagnoses Not on filedocumented in this encounter Care Teams Experimental Mechanic Spacecraft Relationship Specialty Start Date End Date Jay Howell MD [address] [place] [phone] PCP - General Emergency Medicine 11/12/23 documented as of this encounter
--- OUTSIDE RECORDS SUMMARY | 2025-07-12 08:36 | XMS_ITS | Encounter Summary ---
Author Organization [email or web address] ([place], [place], [place], [place]) Address [address] [place] [address] Care Team Providers Care Superintendent Stevedoring Name Role Phone Jay Howell MD Primary Care Provider [phone] Encounter Details Date Type Department Care Team (Late st Contact Info) Description 03/16/2021 Transcribed Document [facility] [place] [address] [place] [id number] ProviderJessie MD [address] [place] [id number] Social History Tobacco Use Types Packs/Day Years Used Date Smoking Tobacco: Never Assessed Comments Unknown Sex and Gender Information Value Date Recorded Sex Assigned at Not on file Legal Sex Female 7:30 PM CDT Gender Identity Not on file Sexual Orientation Not on file documented as of this encounter Miscellaneous Notes * Cerner Conversion Note - Historical MD Alpa - 03/16/2021 5:39 PM CDT DATE OF ADMISSION: 03/16/2021 ADMITTING PHYSICIAN: MARIA ELENA DAVALOS MD PRIMARY CARE PHYSICIAN: Dr. Avtar Moeller. CHIEF COMPLAINT: Syncope, fall with head trauma and body ache. HISTORY OF PRESENT ILLNESS: This is an 80-year-old female, who was brought in because she had syncopal episode. The patient said she fell and hit her head, right upper extremity back. The patient came in to be evaluated, had multiple imaging studies. The patient with right wrist fracture. CT of head and spine with no acute abnormality. The patient had blood work, shows elevated lactic acid and culture was ordered. Start empirically of IV antibiotic. The patient lying in bed, anxious, in pain, mild distress. at bedside. SYSTEMIC REVIEW: GENERAL: No fever or chills. HEAD: Positive for headache and dizziness. EYES: No change of vision. EARS: No earache. NOSE: No epistaxis. THROAT: No sore throat. RESPIRATORY: Positive for shortness of breath. No cough. CARDIAC: No chest pain. GI: Positive for nausea. No vomiting. URINARY: No hematuria. MUSCULOSKELETAL: Body ache. NEUROLOGIC: No focal numbness or weakness. SKIN: No new changes. ENDOCRINE: No heat or cold intolerance. PAST MEDICAL HISTORY: 1. History of atrial fibrillation. 2. Arthritis. 3. Chest pain. 4. Chronic anticoagulation. 5. COPD. 6. Diabetes mellitus. 7. Emphysema. 8. GERD. 9. Hypertension. 10. Coronary artery disease. 11. History of pulmonary embolism. 12. Obstructive sleep apnea. PAST SURGICAL HISTORY: 1. Coronary artery disease, status post stent placement. 2. History of CABG. 3. Femur surgery. 4. Appendectomy. 5. Hysterectomy. 6. Back surgery. 7. Cholecystectomy. 8. Hip replacement. 9. Cataract surgery. SOCIAL HISTORY: The patient is nonsmoker. No alcohol or drug abuse. FAMILY HISTORY: Positive for stroke, heart disease. ALLERGIES: Macrobid and morphine. HOME MEDICATIONS: 1. [place] as needed. 2. Xanax as needed. 3. Norvasc 10 mg daily. 4. Lipitor 80 mg at bedtime. 5. Coreg 6.25 mg 3 times daily. 6. Plavix 75 mg daily. 7. Hydralazine 100 mg twice daily. 8. Florastor twice daily. 9. Lidocaine daily. 10. Losartan 100 mg daily. 11. Metformin 500 mg twice daily. 12. Multivitamin daily. 13. Prozac 40 mg daily. 14. Ranexa 500 mg daily. 15. Coumadin as directed. PHYSICAL EXAMINATION: VITAL SIGNS: Blood pressure 152/65, temperature 97.3, heart rate 62, respiratory rate 21. HEENT: Head, atraumatic and normocephalic. Pupils are round and reactive. Eyes, no conjunctival injection or discharge. Ears, no discharge. Nose, no bleeding or discharge. Mouth dry. NECK: Supple. Full range of motion. CHEST: Poor inspiratory effort. Clear to auscultation. No wheeze, crackle, or rhonchi. HEART: S1 and S2 heard. Regular rate and rhythm. ABDOMEN: Soft. Audible bowel sounds. No tenderness. No guarding. No rebound tenderness. EXTREMITIES: Right upper extremity covered. Lower extremity; no edema, erythema, or tenderness. NEUROLOGIC: No apparent focal motor or sensory deficit. The patient is alert, awake, oriented x3. Intact cranial nerves. PSYCHIATRIC: Positive for anxiety. ENDOCRINE: No thyromegaly or tenderness. GENERAL: The patient lying in bed, anxious, mild distress. at bedside. LABORATORY DATA AND STUDIES: Sodium 138, potassium 4.4, chloride 107, CO2 of 27, glucose 161, BUN 21, creatinine 0.9, calcium 9.1, protein 8.8, albumin 4.2, globulin 4.6, bilirubin 0.6, alkaline phosphatase 76, AST 27, ALT 38, lipase 105. Lactic acid 2.2. Troponin 0.015. White blood cells 9.7, hemoglobin 12.0, hematocrit 37.6, platelets 161. INR 2.6. ASSESSMENT AND PLAN: 1. Syncope. The patient admitted to the hospital to rule out arrhythmia. We will monitor closely. Cardiology consulted. 2. Syncope. The patient will be in telemetry. We will consult Neurology. CT of head done with no acute abnormality. 3. History of atrial fibrillation, rate controlled. We will hold Coumadin for tonight. 4. Right wrist fracture. We will consult Ortho. Start pain control. The patient will be n.p.o. after midnight for surgical evaluation. 5. Hypertension. We will start hydralazine as needed. 6. History of chronic obstructive pulmonary disease. She will be on DuoNeb as needed, continuous oxygen. 7. Coronary artery disease. The patient with normal troponin. Recheck troponin in a.m. No chest pain. 8. Diabetes mellitus. We will start sliding scale. 9. GI prophylaxis, Pepcid. 10. Deep venous prophylaxis, compression boot. Plan discussed with ER physician, with the patient, with . Chart was reviewed. Time spent, 60 minutes. /[id number] Yasser Zohary, MD YZ/AQ / YGonzalo / MODL CC: Dr. Avtar Moeller Electronically signed by [facility], [facility] Conversion Air Quality Manager Cerner at 02/04/2023 2:22 PM CDT documented in this encounter Plan of Treatment Not on file documented as of this encounter Visit Diagnoses Not on filedocumented in this encounter Care Teams Superintendent Stevedoring Relationship Specialty Start Date End Date Jay Howell MD [address] [place] [phone] PCP - General Emergency Medicine 11/12/23 documented as of this encounter
--- OUTSIDE RECORDS SUMMARY | 2025-07-12 08:36 | XMS_ITS | Encounter Summary ---
Author Organization [employer] ([place], [place], [place], [place]) Address [address] [place] [address] Care Team Providers Care Exchange Mechanic Name Role Phone Jay Howell MD Primary Care Provider [phone] Encounter Details Date Type Department Care Team (Late st Contact Info) Description 03/16/2021 Transcribed Document [facility] [place] [facility] [place] [address] ProviderJessie MD [address], [place] [id number] Social History Tobacco Use Types Packs/Day Years Used Date Smoking Tobacco: Never Assessed Comments Unknown Sex and Gender Information Value Date Recorded Sex Assigned at Not on file Legal Sex Female 7:30 PM CDT Gender Identity Not on file Sexual Orientation Not on file documented as of this encounter Miscellaneous Notes * Cerner Conversion Note - Historical ProviderMD - 03/16/2021 3:31 PM CDT Admission History, Adult Entered On: 03/16/2021 18:56 EDT Performed On: 03/16/2021 15:31 EDT by VALERIA DOAN RN Advance Directive Patient has Advance Directive *Q : No, patient refuses Advance Directive information VALERIA DOAN RN - 03/16/2021 18:52 EDT Anesthesia/Transfusion History Family History of Anesthesia Reaction : Prior transfusion reaction Type of Transfusion Reaction : Hemolytic reaction Transfusion History : Prior anesthesia without reaction Family History of Anesthesia Reaction : None VALERIA DOAN RN - 03/16/2021 18:52 EDT Functional Assessment Living Situation : Home Patient Lives With : Spouse THOMAS Hx Falls Immediate/Within 3 Months : Yes Current Home Treatments : Blood glucose monitoring VALERIA DOAN RN - 03/16/2021 18:52 EDT General Info Preferred Name : ilsa Mode of Arrival on Unit : Ambulatory Legal Guardian : Spouse Support Person/Patient Automotive Technician : Yes Support Person/Pt Rep Name : Willard Contact Password : Marvin Support Person/Pt Rep Contact Information : [phone] Want Family/Rep/Phys Notified of Admit : No Emergency Contact #1 : Leonardo Emergency Contact #1 Emergency Contact #1 Relationship : Son Emergency Contact #2 : Christian Emergency Contact #2 Emergency Contact #2 Relationship : Son Chief Complaint : Pt states woke up felt funny went to bathroom and passed out, c/o right hip/ wrist pain, and neck pain. states she thinks she has a UTI as well Information Obtained From : Patient Primary Language : Chadian Preferred Communication Mode : Verbal Communication Barrier : None Digital Campaign Specialist Needed : No VALERIA DOAN RN - 03/16/2021 18:52 EDT Fall Risk Scales ABCs Fall Injury Risk Identification : Bones ABC Fall Injury Risk : Moderate to high injury risk THOMAS Hx Falls Immediate/Within 3 Months : Yes Thomas Secondary Diagnosis : Yes THOMAS Use of Ambulatory Aid : Bed rest/Nurse assist THOMAS IV Therapy or IV Access : Yes Thomas Gait/Transferring : Weak Thomas Mental Status : Oriented to own ability Thomas Fall Risk Score : 70 THOMAS Fall Scale Risk Level : 46 or > High Risk [place] Fall Interventions : Adequate lighting, Assistive devices within reach, Bed in low position, Call device within reach, Fall prevention handout/education per facility policy, Frequent orientation to call device, Frequent orientation to surroundings, Hourly comfort/safety rounds, Non-slip footwear, Personal items within reach, Reinforced to call for assistance before getting out of bed, Room free of clutter/spills, Upper side-rails up, Wheels locked, Wires/Cords secured Fall Moderate to High Risk Interventions : Bed alarm on Fall Risk Scale Calc Temp : 0 VALERIA DOAN RN - 03/16/2021 18:52 EDT Health Histories Smoking Status : Former smoker, quit more than 30 days ago Smokeless Tobacco Status : Never VALERIA DOAN RN - 03/16/2021 18:52 EDT Social History (As Of: 03/16/2021 18:56:45 EDT) Tobacco: Smoking Status Former smoker. Comments: 11/23/2016 13:03 - DAVIDA ISAAC RN: quite 1994 (Last Updated: 11/23/2016 13:03:39 EST by DAVIDA ISAAC RN) Alcohol: Use in Last 12 Months: No. (Last Updated: 08/13/2013 09:59:59 EDT by KENYON CHAMBERS RN) Substance Abuse: Drug Use Hx: No. (Last Updated: 08/13/2013 09:59:59 EDT by KENYON CHAMBERS RN) Nutrition/Health: Caffeine intake amount: 2. (Last Updated: 08/06/2014 13:58:58 EDT by DAVIDA ISAAC RN) Home/Environment: Lives with Spouse. Living situation: Home/Independent. (Last Updated: 12/14/2014 22:42:39 EST by BIPIN HOFF RN) Height and Weight, Clinical Dosing Height Source : Stated Height Entry Format : [place] Height, Feet : 5 ft(Converted to: 152 cm, 60 Inch) Height, Inches : 3 Inch(Converted to: 0 ft 3 Inch, 7.62 cm) Clinical Height : 160.02 cm Weight Source : Standing scale Weight Entry Format : [place] Clinical Dosing Weight : 71.82 kg Weight, Pounds : 158 lb Body Surface Area (BSA) : 1.75 m2 Body Mass Index : 28 kg/m2 (HI) [place] Body Weight : 52 kg VALERIA DOAN RN - 03/16/2021 18:52 EDT Infectious Disease History Has the patient ever been tested for COVID-19? : Yes, Patient stated results Negative Date of COVID-19 test known? : Yes Date of COVID-19 Test : 03/16/2021 EDT Does patient have symptoms of COVID-19? : No COVID19 Screening : No Experiencing Infectious Disease Symptoms : No symptoms Physical contact outside [place] in the last 30 days : No Infectious Disease History : Chicken pox/Shingles, Measles, Mumps Tuberculosis Symptoms : None VALERIA DOAN RN - 03/16/2021 18:52 EDT Influenza Vaccine Asmt, Adult Previous Vaccines from Immunization Schedule : No qualifying data available. Influenza Immunization, Current Season : Yes VALERIA DOAN RN - 03/16/2021 18:52 EDT Pneumococcal Vaccine Previous Vaccines from Immunization Schedule : No qualifying data available. Pneumonia Immunization Received : No Pneumococcal Risk Assessment < Age 65 : N/A- Patient 65 years of age or older Pneumococcal Vaccine Contraindications : No contraindications to pneumococcal vaccine Transplant Workup/Recent Transplant : No Order for Pneumococcal Vaccine : Declined Vaccination VALERIA DOAN RN - 03/16/2021 18:52 EDT Order Details Order Detail : N/A Patient Needs Meds Crushed/Liquid : No VALERIA DOAN RN - 03/16/2021 18:52 EDT Nutrition History Adaptive Feeding Equipment : Regular Eating Poorly Due to Decreased Appetite : No Unplanned Weight Loss in Past 3-6 Months : No Malnutrition Screening Tool Total(mal) : 0 Malnutrition Screening Tool Risk Level : Patient not at risk VALERIA DOAN RN - 03/16/2021 18:52 EDT [place] Suicide Severity Rating Scale (C-SSRS) CSSRS Past Month Wish to be : No CSSRS Past Month Suicidal Thoughts : No CSSRS Lifetime Suicide Behavior : No Suicide Severity Rating Score : 0 Suicide Severity Rating : No Additional Care Required at this time VALERIA DOAN RN - 03/16/2021 18:52 EDT Psychosocial History Chronic/Terminal Illness w/Freq Visits : No Currently in Unsafe Situation : No VALERIA DOAN RN - 03/16/2021 18:52 EDT Sleep Apnea Risk Assmt BiPAP/CPAP Ordered for Home Use : Yes Hx of Obstructive Sleep Apnea Diagnosis : Yes BiPAP/CPAP Used at Home : No Reason BiPAP/CPAP Not Used at Home : no working correctly Age over 50 Years Old : Yes Gender Male : No VALERIA DOAN RN - 03/16/2021 18:52 EDT Valuables and Belongings Valuables and Belongings : Clothing Clothing : Common streetwear Clothing Disposition : Bedside VALERIA DOAN RN - 03/16/2021 18:52 EDT Electronically signed by Gayle Finnegan Conversion Tree Trimming Line Technician Cerner at 02/04/2023 2:07 PM CDT documented in this encounter Plan of Treatment Not on file documented as of this encounter Visit Diagnoses Not on filedocumented in this encounter Care Teams Exchange Mechanic Relationship Specialty Start Date End Date Jay Howell MD [address] [place] [phone] PCP - General Emergency Medicine 11/12/23 documented as of this encounter
--- OUTSIDE RECORDS SUMMARY | 2025-07-12 08:36 | XMS_ITS | Encounter Summary ---
Author Organization [employer] ([place], [place], [place], [place]) Address [address] [place] [address] Care Team Providers Care Osha Inspector Name Role Phone Jay Howell MD Primary Care Provider [phone] Encounter Details Date Type Department Care Team (Late st Contact Info) Description 08/25/2020 Transcribed Document [facility] [place] [address] [place] [address] ProviderJessie MD [address] [place] [address] Social History Tobacco Use Types Packs/Day Years Used Date Smoking Tobacco: Never Assessed Comments Unknown Sex and Gender Information Value Date Recorded Sex Assigned at Not on file Legal Sex Female 7:30 PM CDT Gender Identity Not on file Sexual Orientation Not on file documented as of this encounter Miscellaneous Notes * Cerner Conversion Note - Jessie Yuen MD - 08/25/2020 7:11 AM IRONER SOCK Pain Assessment Entered On: 08/26/2020 1:56 EST Performed On: 08/25/2020 20:19 EST by Kervin Kulkarni RN Intervention Information: acetaminophen-HYDROcodone Performed by ROMEO PADRON RN on 08/25/2020 19:19:00 EST acetaminophen-HYDROcodone,1Tab Oral,Pain (Moderate 4-6) Pain Assessment Pain Assessment : Follow-up assessment Pain Scale Goal : 5 Pain Scale Used : 0-10 Scale Kervin Kulkarni RN - 08/26/2020 1:56 EST Pain Scale Intensity : 4 Kervin Kulkarni RN - 08/26/2020 1:56 EST Image 4 - Images currently included in the form version of this document have not been included in the text rendition version of the form. documented in this encounter Plan of Treatment Not on file documented as of this encounter Visit Diagnoses Not on filedocumented in this encounter Care Teams Osha Inspector Relationship Specialty Start Date End Date Jay Howell MD [address] [place] [phone] PCP - General Emergency Medicine 11/12/23 documented as of this encounter
--- OUTSIDE RECORDS SUMMARY | 2025-07-12 08:37 | XMS_ITS | Encounter Summary ---
Author Organization [employer] ([place], [place], [place], [place]) Address [address] [place] [address] Care Team Providers Care Senior Sales Executive Name Role Phone Jay Howell MD Primary Care Provider [phone] Encounter Details Date Type Department Care Team (Late st Contact Info) Description 08/25/2020 Transcribed Document [facility] [place] Family Medicine [address] [place] [id number] ProviderJessie MD [address] [place] [address] Social History Tobacco Use Types Packs/Day Years Used Date Smoking Tobacco: Never Assessed Comments Unknown Sex and Gender Information Value Date Recorded Sex Assigned at Not on file Legal Sex Female 7:30 PM CDT Gender Identity Not on file Sexual Orientation Not on file documented as of this encounter Miscellaneous Notes * Cerner Conversion Note - Historical MD Alpa - 08/25/2020 6:23 AM SCRAP KETTLE TENDER Patient: SKYLER MONTOYA Age: 79 years Sex: Female : 1940 Associated Diagnoses: None Author: BETH DAVALOS MD-INT Basic Information ADMISSION HISTORY AND PHYSICAL DATE OF ADMISSION: Admit Date 08/25/2020 04:33 PRIMARY CARE PROVIDER: Primary Care Provider TARA CHEN (REF), -MED Chief Complaint 1. left leg wound 2. Left leg redness 08/25/2020 4:41 EST pt to ED from home for leg wound. pt seen here Luis Enrique for same. pt also c/o nausea that started on the way to ED History of Present Illness HISTORY OF PRESENT ILLNESS: Ms. Montoya is an 79-year-old female with known history of coronary artery disease, status post CABG; history of multiple stent placements. The patient presented to [facility] ER after recent fall with hematoma required evacuation in our ER. Patient was seen here on 08/22/2020. At that time she had fallen several days ago and sustained a hematoma to the anterior tibial aspect of the lower left leg. It subsequently turned very red over the next several days. The redness continued to expand as did her pain. [...] wound care follow-up at her local vicinity. PAST MEDICAL HISTORY: 1. History of coronary artery disease, status post stent placement. 2. History of CABG. 3. Anxiety. 4. COPD. 5. Coumadin use. 6. Diabetes mellitus. 7. Emphysema. 8. Hypertension. 9. Hyperlipidemia. PAST SURGICAL HISTORY: 1. Coronary artery disease, status post stent placement. 2. History of CABG. 3. Femur repair. 4. Appendectomy. 5. Uterine surgery. 6. Hysterectomy. 7. Back surgery. 8. Cholecystectomy. 9. Hip replacement. SOCIAL HISTORY: The patient used to be a smoker, but quit. Denies any alcohol or drug abuse. FAMILY HISTORY: Positive for heart disease. ALLERGIES: Macrobid, morphine. HOME MEDICATIONS: 1. Acetaminophen/hydrocodone as needed. 2. Xanax 0.25 mg at bedtime as needed. 3. Norvasc 10 mg daily. 4. Aspirin 81 mg daily. 5. Lipitor 80 mg daily. 6. Ophthalmic eye drops. 7. Coreg 6.25 mg 3 times daily. 8. Hydralazine 10 mg twice daily. 9. Metformin 500 mg twice a day. 10. Multivitamin daily. 11. Nitroglycerin as needed. 12. Prozac 40 mg daily. 13. Ranexa 500 mg 2 tablets twice daily. 14. Valsartan 160 mg daily. 15. Coumadin as directed. Review of Systems Constitutional: No fever, No chills, No weakness. Eye: No recent visual problem, No discharge. Ear/Nose/Mouth/Throat: No decreased hearing, No nasal congestion, No sore throat. Respiratory: No shortness of breath, No cough, No sputum production, No wheezing. Cardiovascular: No chest pain, No peripheral edema. Gastrointestinal: No nausea, No vomiting, No diarrhea, No heartburn, No abdominal pain, No hematemesis. Genitourinary: No dysuria, No hematuria. Hematology/Lymphatics: No bruising tendency. Endocrine: No excessive thirst, No polyuria, No cold intolerance. Immunologic: Not immunocompromised, No recurrent fevers. Musculoskeletal: No neck pain, No muscle pain. Integumentary: left leg wound and redness, No rash, No pruritus, No dryness. Neurologic: No numbness, No tingling. Psychiatric: No anxiety, No depression, Not suicidal. VASCULAR: No claudication Health Status Allergies: Allergic Reactions (Selected) Severity Not Documented Macrodantin- No reactions were documented. Morphine- Rash and rash. Nitrofurantoin- Blisters and blisters., Allergies (1) Active Reaction Macrodantin None Documented Current medications: (Selected) Inpatient Medications Ordered Dilaudid: 0.25 mg, IV Push, Q8H, PRN: Pain (Severe 7-10) DuoNeb 0.5 mg-2.5 mg/3 mL inhalation solution: 3 mL, Nebulized Inhalation, RT_Q3H, PRN: Shortness of Breath Normal Saline 1,000 mL: 75 mL/Hr, IntraVENous Pepcid: 20 mg, Oral, BID Zofran: 4 mg, IV Push, Q4H, PRN: Nausea/Vomiting Zosyn + Sodium Chloride 0.9% intravenous solution 100 mL: 3.375 Gram, 33.33 mL/Hr, IV Piggyback, Q6HInt Zosyn + Sodium Chloride 0.9% intravenous solution 100 mL: 4.5 Gram, 200 mL/Hr, IV Piggyback, 1-Time acetaminophen: 650 mg, Oral, Q4H, PRN: Other (See Comment) carvedilol: 12.5 mg, Oral, 1-Time cloNIDine: 0.1 mg, Oral, Q3H, PRN: Hypertension hydrALAZINE: 50 mg, Oral, 1-Time vancomycin: 1 Each, IV Piggyback, Weekly Prescriptions Prescribed Bactroban 2% topical ointment: 1 Application, Topical, TID, 22 Gram, 0 Refill(s) Butler 7.5 mg-325 mg oral tablet: 1 Tab, [...] 2 mg oral tablet: 1 Tab, Oral, TuThFrSaSu Coumadin 2 mg oral tablet: 1.5 Tab, [...] 1 Cap, Oral, Daily, 30 Cap, 0 Refill(s), Medications (12) Active Scheduled: (6) carvedilol 12.5 mg tab 12.5 mg 1 Tab, Oral, 1-Time famotidine 20 mg tab 20 mg 1 Tab, Oral, BID hydrALAZINE 50 mg tab 50 mg 1 Tab, Oral, 1-Time piperacillin-tazobactam + NaCl 0.9% 100 mL 3.375 Gram, IV Piggyback, Q6HInt piperacillin-tazobactam + NaCl 0.9% 100 mL 4.5 Gram, IV Piggyback, 1-Time Vancomycin IV Dosing by Pharmacy 1 Each, IV Piggyback, Weekly Continuous: (1) NaCl 0.9% 1,000 mL 1,000 mL, IntraVENous, 75 mL/Hr PRN: (5) acetaminophen 325 mg tab 650 mg 2 Tab, Oral, Q4H albuterol-ipratropium inh 3 mL 3 mL, Nebulized Inhalation, RT_Q3H cloNIDine 0.1 mg tab 0.1 mg 1 Tab, Oral, Q3H HYDROmorphone 1 mg/1 mL inj 0.25 mg 0.25 mL, IV Push, Q8H ondansetron 4 mg/2 mL inj 4 mg 2 mL, IV Push, Q4H Problem list: Medical Arthritis / SNOMED CT 4649744 / Confirmed Atrial fibrillation with RVR / SNOMED CT 6109162427 / Confirmed Cataract / Patient Care / Confirmed Chest pain / SNOMED CT 82065112 / Complaint of COPD / SNOMED CT 04620374 / Confirmed Coronary artery disease / SNOMED CT 4043363533 / Confirmed Diabetes mellitus / SNOMED CT 276824092 / Confirmed GERD - Gastro-esophageal reflux disease / SNOMED CT 4767594420 / Confirmed Glaucoma / Patient Care / Confirmed Chronic anticoagulation / SNOMED CT 691806236 / Confirmed Hx of pulmonary embolus / SNOMED CT 352342422 / Confirmed High blood pressure / SNOMED CT 85620344 / Confirmed History of obstructive sleep apnea / IMO 30369378 / Confirmed Hyperlipidemia / SNOMED CT 24385953 / Confirmed Multiple renal cysts / SNOMED CT 776713497 / Confirmed Emphysema / SNOMED CT 833473202 / Confirmed Apnea, sleep / SNOMED CT 530702835 / Confirmed Stented coronary artery / SNOMED CT 2160703045 / Confirmed UTI - Urinary tract infection / SNOMED CT 8028282322 / Confirmed, Active Problems (21) Apnea, sleep Arthritis Atrial fibrillation with RVR Blood clot Cataract Chest pain Chronic anticoagulation Clotting disorder COPD Coronary artery disease Diabetes mellitus Emphysema GERD - Gastro-esophageal reflux disease Glaucoma High blood pressure History of obstructive sleep apnea Hx of pulmonary embolus Hyperlipidemia Multiple renal cysts Stented coronary artery UTI - Urinary tract infection Histories Past Medical History: Active Cataract Glaucoma Coronary artery disease (6920198211) Stented coronary artery (9740573195) High blood pressure (40666370) Hyperlipidemia (69229769) COPD (33677857) GERD - Gastro-esophageal reflux disease (5817059053) Multiple renal cysts (402788526) UTI - Urinary tract infection (1639891035) Arthritis (4880311) Diabetes mellitus (192259107) Emphysema (640451147) Apnea, sleep (708055655) Hx of pulmonary embolus (924425799) Chronic anticoagulation (370672828) Atrial fibrillation with RVR (3409797460) Family History: Cardiomyopathy Child Stroke Brother Heart attack Brother Sister Leukemia Child Cancer Father Mother Sister Coronary heart disease Child , Significant for hypertension Procedure history: Cardiac Stent in 2010 at 70 Years. Cardiac Stent on 01/30/2008 at 67 Years. Comments: 06/13/2020 8:52 THERESET - EVA WESLEY RN PCI w/ [place] stent to D1 Coronary artery bypass graft ([id number]) in 1992 at 52 Years. femur repair. Appendectomy (479064830). uterine suspension. Hysterectomy (214919898). back surgury. Cholecystectomy (66162946). Hip replacement (7728463826). cataract surgury. Social History Social & Psychosocial Habits Alcohol 08/13/2013 Alcohol Use in Last Twelve Months No Home/Environment 12/14/2014 Lives with: Spouse Living situation: Home/Independent Nutrition/Health 08/06/2014 Caffeine intake amount: 2 Substance Abuse 08/13/2013 Recreational Drug Use History No Tobacco 11/23/2016 Smoking Status Former smoker Comment: quite 1992 - 11/23/2016 13:03 - DAVIDA ISAAC RN . Physical Examination VS/Measurements Vitals Signs (last 24 hrs) Last Charted Minimum Maximum Temp 98.4 (AUG 25:41) 98.4 (AUG 25:) 98.4 (AUG 25:) Mon HR 62 (AUG 25 06:07) 62 (AUG 25 05:51) 62 (AUG 25:) Periph HR 81 (AUG 25:) 81 (AUG 25:) 81 (AUG 25:) Resp Rate 17 (AUG 25:07) 16 (AUG 25:) 18 (AUG 25:) SBP H 200 (AUG 25:) H 197 (AUG 25:) H 214 (AUG 25:) DBP 80 (AUG 25:) 80 (AUG 25:) H 133 (AUG 25:) MAP 115 (AUG 25:) 115 (AUG 25:) 158 (AUG 25:) SpO2 95 (AUG 25:) 95 (AUG 25:) 97 (AUG 25:) General: Alert and oriented, No acute distress. Eye: Pupils are equal, round and reactive to light, Extraocular movements are intact, Normal conjunctiva. HENT: Ear: Within normal limits. Nose: Both nostrils, Within normal limits. Neck: Supple, Non-tender, No jugular venous distention, No lymphadenopathy, No thyromegaly. Respiratory: Breath sounds are equal, Symmetrical chest wall expansion, No chest wall tenderness. Respirations: Not tachypneic. Pattern: Regular. Breath sounds: Bilateral, No rales present, No rhonchi present, No wheezes present. Breath sounds: No rales present. Cardiovascular: S1, S2, No murmur, Non-displaced PMI. Arterial pulses: Bilateral, Posterior tibial, Dorsalis pedis, 3+. Capillary refill: Within normal limits. Gastrointestinal: Soft, Non-tender, Non-distended, Normal bowel sounds, No organomegaly. Genitourinary: No costovertebral angle tenderness. Musculoskeletal: Normal range of motion, Normal strength, No tenderness, No swelling. Integumentary: Warm, left leg wound with sorrounding erythema. Neurologic: Alert, Oriented, Normal sensory, Normal motor function, Cranial Nerves II-XII are grossly intact. Cognition and Speech: Oriented, Speech clear and coherent. Psychiatric: Cooperative, Appropriate mood & affect. Review / Management Results review: Labs (Last four charted values) WBC 6.0 (AUG 25) HB 12.0 (AUG 25) HCT 36.1 (AUG 25) Plt 178 (AUG 25) Na 136 (AUG 25) K 3.7 (AUG 25) Cl 105 (AUG 25) CO2 25 (AUG 25) BUN 12 (AUG 25) Cr 0.90 (AUG 25) Glu R H 120 (AUG 25) Ca 9.1 (AUG 25) Lactic C 2.1 (AUG 25) PT H 32.5 (AUG 25) INR H 3.1 (AUG 25) AST 29 (AUG 25) ALT 32 (AUG 25) ALK P 63 (AUG 25) T Bili 0.9 (AUG 25) PTN 8.1 (AUG 25) ALB 4.0 (AUG 25) . Radiology results AUG 25 05:06 136 105 12 / H 120 3.7 25 0.90 \ AUG 25 05:06 \ 12.0 / 6.0 178 / 36.1 \ RADIOLOGIC IMAGING: No Radiology Results Found Impression and Plan ASSESSMENT AND PLANS: Left lower extremity Cellulitis blood cultures were collected started IV Zosyn and IV Vancomycin Consult ID local wound care Left leg Hematoma S/P Evacuation in ER on 08/22/2020 will consult Vascular surgery Left Leg Wound consult wound care services consult vascular surgery Atrial fibrillation on chronic Coumadin INR is 3.1 hold Coumadin until vascular evaluation CAD S/P CABG and stents no cardiac symptoms resume cardiac meds Uncontrolled Hypertension: resume coreg, Losartan, Amlodipine, monitor vital signs and manage accordingly Gastrointestinal ( GI ) prophylaxis : I started the patient on Pepcid DEEP VEIN THROMBOSIS ( DVT ) prophylaxis: I placed the patient on sequential compression devices ( Compression Boots ) while in bed. on coumarin . INR is 3.1 CODE STATUS: FULL code. TIME SPENT : 45 minutes in evaluation documented in this encounter Plan of Treatment Not on file documented as of this encounter Visit Diagnoses Not on filedocumented in this encounter Care Teams Senior Sales Executive Relationship Specialty Start Date End Date Jay Howell MD [address] [place] [phone] PCP - General Emergency Medicine 11/12/23 documented as of this encounter
--- OUTSIDE RECORDS SUMMARY | 2025-07-12 08:37 | XMS_ITS | Encounter Summary ---
Author Organization [employer] ([place], [place], [place], [place]) Address [address] [place] [address] Care Team Providers Care Oxidized Finish Plater Name Role Phone Jay Howell MD Primary Care Provider [phone] Encounter Details Date Type Department Care Team (Late st Contact Info) Description 03/17/2021 Transcribed Document [facility] [place] [facility] [place] [address] ProviderJessie MD [address] [place] [address] Social History Tobacco Use Types Packs/Day Years Used Date Smoking Tobacco: Never Assessed Comments Unknown Sex and Gender Information Value Date Recorded Sex Assigned at Not on file Legal Sex Female 7:30 PM CDT Gender Identity Not on file Sexual Orientation Not on file documented as of this encounter Miscellaneous Notes * Cerner Conversion Note - Historical ProviderMD - 03/17/2021 9:00 AM CDT Consult Phone Call Documentation Entered On: 03/17/2021 8:53 EDT Performed On: 03/17/2021 9:00 EDT by SAMUEL JUDD Phone Call for Consults Consult Phone Call/Page Attempt : First call Physician Requested for Consult : FREDY YAÑEZ MD-SAMUEL PRICE - 03/17/2021 8:53 EDT documented in this encounter Plan of Treatment Not on file documented as of this encounter Visit Diagnoses Not on filedocumented in this encounter Care Teams Oxidized Finish Plater Relationship Specialty Start Date End Date Jay Howell MD [address] [place] [phone] PCP - General Emergency Medicine 11/12/23 documented as of this encounter
--- OUTSIDE RECORDS SUMMARY | 2025-07-12 08:37 | XMS_ITS | Encounter Summary ---
Author Organization [employer] ([place], [place], [place], [place]) Address [address] [place] [address] Care Team Providers Care Estimator And Drafter Name Role Phone Jay Howell MD Primary Care Provider [phone] Encounter Details Date Type Department Care Team (Late st Contact Info) Description 03/17/2021 Transcribed Document [facility] [place] [facility] [place] [address] ProviderJessie MD [address] [place] [phone] Social History Tobacco Use Types Packs/Day Years Used Date Smoking Tobacco: Never Assessed Comments Unknown Sex and Gender Information Value Date Recorded Sex Assigned at Not on file Legal Sex Female 7:30 PM CDT Gender Identity Not on file Sexual Orientation Not on file documented as of this encounter Miscellaneous Notes * Cerner Conversion Note - Historical ProviderMD - 03/17/2021 2:00 PM CDT Pain Assessment Entered On: 03/17/2021 17:25 EDT Performed On: 03/17/2021 15:34 EDT by Skip Sotelo RN Intervention Information: oxyCODONE Performed by Skip Sotelo RN on 03/17/2021 14:34:00 EDT oxyCODONE,5mg Oral Pain Assessment Pain Assessment : Follow-up assessment Pain Scale Goal : 5 Pain Scale Used : 0-10 Scale Skip Sotelo RN - 03/17/2021 17:25 EDT documented in this encounter Plan of Treatment Not on file documented as of this encounter Visit Diagnoses Not on filedocumented in this encounter Care Teams Estimator And Drafter Relationship Specialty Start Date End Date Jay Howell MD [address] [place] [phone] PCP - General Emergency Medicine 11/12/23 documented as of this encounter
--- OUTSIDE RECORDS SUMMARY | 2025-07-12 08:37 | XMS_ITS | Encounter Summary ---
Author Organization [employer] ([place], [place], [place], [place]) Address [address] [place] [address] Care Team Providers Care Asbestos Microscopist Name Role Phone Jay Howell MD Primary Care Provider [phone] Encounter Details Date Type Department Care Team (Late st Contact Info) Description 03/17/2021 Transcribed Document [facility] [place] [facility] [place] [address] ProviderJessie MD [address] [place], [place] [phone] Social History Tobacco Use Types Packs/Day Years Used Date Smoking Tobacco: Never Assessed Comments Unknown Sex and Gender Information Value Date Recorded Sex Assigned at Not on file Legal Sex Female 7:30 PM CDT Gender Identity Not on file Sexual Orientation Not on file documented as of this encounter Miscellaneous Notes * Cerner Conversion Note - Historical ProviderMD - 03/17/2021 12:00 PM CDT Pain Assessment Entered On: 03/17/2021 17:25 EDT Performed On: 03/17/2021 12:31 EDT by Skip Sotelo RN Intervention Information: ketorolac Performed by Skip Sotelo RN on 03/17/2021 12:01:00 EDT ketorolac,15mg IV Push,Peripheral Line 1 Pain Assessment Pain Assessment : Follow-up assessment Pain Scale Goal : 5 Pain Scale Used : 0-10 Scale Skip Sotelo RN - 03/17/2021 17:25 EDT Pain Scale Intensity : 3 Skip Sotelo RN - 03/17/2021 17:25 EDT Image 4 - Images currently included in the form version of this document have not been included in the text rendition version of the form. Electronically signed by Sivan, [facility] Conversion Injection Operator Cerner at 02/04/2023 2:16 PM CDT documented in this encounter Plan of Treatment Not on file documented as of this encounter Visit Diagnoses Not on filedocumented in this encounter Care Teams Asbestos Microscopist Relationship Specialty Start Date End Date Jay Howell MD [address] [place] [phone] PCP - General Emergency Medicine 11/12/23 documented as of this encounter
--- OUTSIDE RECORDS SUMMARY | 2025-07-12 08:37 | XMS_ITS | Encounter Summary ---
Author Organization [employer] ([place], [place], [place], [place]) Address [address] [place] [address] Care Team Providers Care Food Writer Name Role Phone Jay Howell MD Primary Care Provider [phone] Encounter Details Date Type Department Care Team (Late st Contact Info) Description 08/25/2020 Transcribed Document [facility] [place] Family Medicine [address] [place] [address] ProviderJessie MD [address] [place] [address] Social History Tobacco Use Types Packs/Day Years Used Date Smoking Tobacco: Never Assessed Comments Unknown Sex and Gender Information Value Date Recorded Sex Assigned at Not on file Legal Sex Female 7:30 PM CDT Gender Identity Not on file Sexual Orientation Not on file documented as of this encounter Miscellaneous Notes * Cerner Conversion Note - Jessie ProviderMD - 08/25/2020 4:33 AM MOVING WORKER ED Assessment Entered On: 08/25/2020 5:16 EST Performed On: 08/25/2020 5:12 EST by Yajaira Magallon, wheat grower Quick Look Assessment Level of Consciousness : Alert, Awake Affect/Behavior : Appropriate, Calm, Cooperative Orientation : Oriented x 4 Skin Temperature : Warm Skin Description : Normal for ethnicity Yajaira Magallon Rn - 08/25/2020 5:12 EST ED General-Functional Assess Information Obtained From : Patient Preferred Communication Mode : Verbal Communication Barrier : None Primary Language : Gibralt[place] Any Spiritual/Cultural Needs or Requests : No Currently in Unsafe Situation : No Yajaira Magallon Rn - 08/25/2020 5:12 EST Social Habits Smoking Status : Former smoker, quit more than 30 days ago Smokeless Tobacco Status : Never Desires Tobacco Cessation Calc : 0 Yajaira Magallon Rn - 08/25/2020 5:12 EST Social History (As Of: 08/25/2020 05:16:10 EST) Tobacco: Smoking Status Former smoker. Comments: 11/23/2016 [...] 12/14/2014 22:42:39 EST by BIPIN HOFF RN) Cardiovascular ASMT, ED Cardiovascular Assessment WDL : WDL with patient specific variances (Comment: pt has hx of HTN, pt hypertensive on arrival to ed. pt states she has not taken her bp meds today. [Yajaira Magallon Rn - 08/25/2020 5:12 EST] ) Yajaira Magallon Rn - 08/25/2020 5:12 EST Respiratory Respiratory Assessment WDL : WDL Yajaira Magallon Rn - 08/25/2020 5:12 EST Integumentary Assessment Skin Description : Red Integumentary Assessment WDL : WDL with exceptions (Comment: pt c/o increased pain and redness to wound on LLE. pt states she fell 2 weeks ago and sustained injury to LLE w/ abrasions. pt was seen here 08/22/2020 for evaluation of wound. at that time pt has hematoma and abrasions to anterior tibia. hematoma was opened and excised and packing was placed. pt was supposed to follow up w/ wound care but was unable to follow up w/ wound care where she lives. pt returns today w/ increased pain and redness to area. packing still in place [Yajaira Magallon Rn - 08/25/2020 5:12 EST] ) Yajaira Magallon Rn - 08/25/2020 5:12 EST Neurologic ASMT, ED Neurologic Assessment WDL : WDL Yajaira Magallon Rn - 08/25/2020 5:12 EST Electronically signed by Sivan, [facility] Conversion Imaging Engineer Cerner at 02/04/2023 2:02 PM CDT documented in this encounter Plan of Treatment Not on file documented as of this encounter Visit Diagnoses Not on filedocumented in this encounter Care Teams Food Writer Relationship Specialty Start Date End Date Jay Howell MD [address] [place] [phone] PCP - General Emergency Medicine 11/12/23 documented as of this encounter
--- OUTSIDE RECORDS SUMMARY | 2025-07-12 08:37 | XMS_ITS | Encounter Summary ---
Author Organization [employer] ([place], [place], [place], [place]) Address [address] [place] [address] Care Team Providers Care Change Management Name Role Phone Jay Howell MD Primary Care Provider [phone] Encounter Details Date Type Department Care Team (Late st Contact Info) Description 08/25/2020 Transcribed Document [facility] [place] [address] [place] [address] ProviderJessie MD [address] [place] [address] Social History Tobacco Use Types Packs/Day Years Used Date Smoking Tobacco: Never Assessed Comments Unknown Sex and Gender Information Value Date Recorded Sex Assigned at Not on file Legal Sex Female 7:30 PM CDT Gender Identity Not on file Sexual Orientation Not on file documented as of this encounter Miscellaneous Notes * Cerner Conversion Note - Jessie Yuen MD - 08/25/2020 5:02 AM FINISHER HOT STRIP Pain Assessment Entered On: 08/25/2020 5:48 EST Performed On: 08/25/2020 5:36 EST by Yajaira Magallon Rn Intervention Information: fentaNYL Performed by Deisi Vasquez RN on 08/25/2020 05:06:00 EST fentaNYL,25mcg IV Push,Peripheral Line 1 Pain Assessment Pain Assessment : Follow-up assessment Pain Scale Used : 0-10 Scale Yajaira Magallon Rn - 08/25/2020 5:48 EST Pain Scale Intensity : 2 Yajaira Magallon Rn - 08/25/2020 5:48 EST Image 4 - Images currently included in the form version of this document have not been included in the text rendition version of the form. documented in this encounter Plan of Treatment Not on file documented as of this encounter Visit Diagnoses Not on filedocumented in this encounter Care Teams Change Management Relationship Specialty Start Date End Date Jay Howell MD [address] [place] [phone] PCP - General Emergency Medicine 11/12/23 documented as of this encounter
--- OUTSIDE RECORDS SUMMARY | 2025-07-12 08:37 | XMS_ITS | Encounter Summary ---
Author Organization [employer] ([place], [place], [place], [place]) Address [address] [place] [address] Care Team Providers Care Logistics Program Manager Name Role Phone Jay Howell MD Primary Care Provider [phone] Encounter Details Date Type Department Care Team (Late st Contact Info) Description 03/17/2021 Transcribed Document [facility] [place] [facility] [address] [place] [id number] ProviderJessie MD [address] [place], [place] [id number] Social History Tobacco Use Types Packs/Day Years Used Date Smoking Tobacco: Never Assessed Comments Unknown Sex and Gender Information Value Date Recorded Sex Assigned at Not on file Legal Sex Female 7:30 PM CDT Gender Identity Not on file Sexual Orientation Not on file documented as of this encounter Miscellaneous Notes * Cerner Conversion Note - Historical ProviderMD - 03/17/2021 1:58 PM CDT Evaluation, Physical Therapy Entered On: 03/18/2021 12:33 EDT Performed On: 03/18/2021 9:25 EDT by Hilton Salgado PHYSICAL THERAPIST NON-EXEMPT General Information, PT Visit Type, PT : Initial evaluation Patient Orders : Order Date Order Ordering 03/17/2021 13:58 PT Evaluation and Treatment Ordered By: BUBBA HUNG PA-C Active Diagnoses : 03/16/2021 12:00 Fracture of unspecified carpal bone, right wrist, initial encounter for closed fracture 03/16/2021 12:00 Strain of muscle, fascia and tendon of lower back, initial encounter 03/16/2021 12:00 Syncope and collapse 03/16/2021 12:00 Syncope/Near syncope Therapy Diagnosis, PT : Decline in functional mobility s/p fall Admission Date : 03/17/2021 13:59 Personal Devices : Personal Devices No Devices Recorded Assistive Devices : Assistive Devices No Devices Recorded Precautions in Place : Fall prevention measures General Information Comment, PT : Patient is an 80 year-old female that presented to hospital s/p syncope and fall with head trauma and body ache. Patient's CT head and spine negative for acute abnormalities. Pt was found to have R wrist fracture which was splinted and wrapped at time of PT evaluation. PMH: afib, COPD, CAD. Hilton Salgado PHYSICAL THERAPIST NON-EXEMPT - 03/18/2021 12:18 EDT General Status Patient Received Status : Sitting edge of bed Treatment Start Time : 03/18/2021 9:09 EDT Patient Left Status : Sitting edge of bed, RN/PCT informed, Family/Visitors at bedside, Communication board completed, All needs met and within reach RN/PCT Informed Comment : RN: Eryn approved session and was informed of patient's status at end of session. Treatment End Time : 03/18/2021 9:25 EDT Treatment Time : 16 Minute(s) Hilton Salgado PHYSICAL THERAPIST NON-EXEMPT - 03/18/2021 12:18 EDT History and Environment Living Situation, Therapy : Home Patient Lives With : Spouse Persons Assisting Patient at Home : Spouse Professional Skilled Services : None Persons Providing Information : Patient Home Equipment Therapy, PT : Cane, Walker Cane : Cane, single point Walker : Walker, four wheel Walker Comment : uses rollator outside + in community Home Setup : One story Stairs : Yes Stair Location(s) : Outside Outside Stairs, Number of Steps : 4 Railing Outside : Yes Outside Railing Position : Bilateral Hilton Salgado PHYSICAL THERAPIST NON-EXEMPT - 03/18/2021 12:18 EDT Prior Level of Function PT GRID Prior LOF Ambulation, Household : Independent Prior LOF Ambulation, Community : Independent (Comment: with rollator [Hilton Salgado PHYSICAL THERAPIST NON-EXEMPT - 03/18/2021 12:18 EDT] ) Prior LOF Bed Mobility : Independent Prior LOF Toileting : Independent Prior LOF Transfer : Independent Hilton Salgado PHYSICAL THERAPIST NON-EXEMPT - 03/18/2021 12:18 EDT Intervention Summary O2 Pre-Intervention : RA O2 During Intervention : RA O2 Post-Intervention : RA Hilton Salgado PHYSICAL THERAPIST NON-EXEMPT - 03/18/2021 12:18 EDT Upper Extremity Right UE Active ROM : Impaired Right UE Strength : Impaired Left UE Active ROM : WFL Left UE Strength : WFL Right UE Strength : Impaired Left UE Strength : WFL Upper Extremity Comment : RUE immobilized in wrist splint, MMT and ROM not tested. Strength and ROM of LUE appear to be WFL based on functional mobility performed. Hilton Salgado PHYSICAL THERAPIST NON-EXEMPT - 03/18/2021 12:18 EDT Lower Extremity RLE Active ROM : WFL Right LE Strength : WFL LLE Active ROM : WFL Left LE Strength : WFL Lower Extremity Comment : BLE MMT not formally assessed, at least 3+/5 BLE based on functional mobility performed during session. Hilton Salgado PHYSICAL THERAPIST NON-EXEMPT - 03/18/2021 12:18 EDT Functional Mobility Mobility Grid Sit to Stand : Supervision/set-up Stand to Sit : Supervision/set-up Hilton Salgado PHYSICAL THERAPIST NON-EXEMPT - 03/18/2021 12:18 EDT Sit to Stand Device : Belt, gait Stand to Sit Device : Belt, gait Hilton Salgado PHYSICAL THERAPIST NON-EXEMPT - 03/18/2021 12:18 EDT Gait Training/Assessment, PT Weight Bearing Status Maintained : Yes Weight Bearing Status : Non right upper extremity Gait Assistance Level : Supervision Walking Distance : 100' Ambulatory Devices : None, Gait belt Gait Deviations : Yes Left Lower Gait Deviation : Daisha, decreased, Wide base of support Right Lower Gait Deviation : Daisha, decreased, Wide base of support Gait Training Comment : Pt impulsive with turns and veers from midline with wide base of support while ambulating, supervision needed for safety but no overt LOB observed. Hilton Salgado PHYSICAL THERAPIST NON-EXEMPT - 03/18/2021 12:18 EDT Activity Tolerance, PT Activity Comment : Poor Hilton Salgado PHYSICAL THERAPIST NON-EXEMPT - 03/18/2021 12:18 EDT Cognition Assessment, PT Orientation : Oriented x 4 Hilton Salgado PHYSICAL THERAPIST NON-EXEMPT - 03/18/2021 12:18 EDT Edu Topics Physical Therapy Education Grid Gait Training : Verbalizes understanding, Needs further teaching Role of Physical Therapy : Verbalizes understanding, Needs further teaching Hilton Salgado PHYSICAL THERAPIST NON-EXEMPT - 03/18/2021 12:18 EDT Indication Assesessment, PT Physical Therapy Indicated : Yes PT Problem List : Impaired, activities daily living, Impaired, bed mobility, Impaired, coordination/proprioception, Impaired, endurance tolerance, Impaired, gait, Impaired, joint mobility, Impaired, stair mobility, Impaired, standing balance, Impaired, strength, Impaired, transfers, Pain limiting function Potential Barriers To Therapy : Acuity of Illness, Pain Rehabilitation Potential : Good Hilton Salgado PHYSICAL THERAPIST NON-EXEMPT - 03/18/2021 12:18 EDT Plan of Care, PT PT Tx Plan/Goals Established w Patient : Yes PT Frequency Rehab : Five days per week PT Duration Rehab : Fourteen days PT Treatments Planned : Balance training, Bed mobility training, Gait training, Neuromuscular reeducation, Pain management, Safety education, Stair training, Therapeutic exercises, Transfer training Hilton Salgado PHYSICAL THERAPIST NON-EXEMPT - 03/18/2021 12:18 EDT Molded Goods Operator Goals Mobility/Bed Mobility LTG PT Grid Goal #1 Activity : Bed mobility Assist : Independent, modified Date to Meet : 04/01/2021 EDT Goal Status : Intial Goal Hilton Salgado PHYSICAL THERAPIST NON-EXEMPT - 03/18/2021 12:18 EDT Ambulation LTG Grid Goal #1 Device : Cane, single point Distance : 150' Assist : Independent, modified Date to Meet : 04/01/2021 EDT Goal Status : Intial Goal Comment : or least resistive assistive device Hilton Salgado PHYSICAL THERAPIST NON-EXEMPT - 03/18/2021 12:51 EDT Stairs LTG Grid Goal #1 Number of Steps : 4 Handrail(s) : One handrail Assist : Independent, modified Date to Meet : 04/01/2021 EDT Goal Status : Intial Goal Naomi, Hilton, PHYSICAL THERAPIST NON-EXEMPT - 03/18/2021 12:18 EDT Treatment Note Subjective Comment : Chart reviewed, RN approved session, pt agreeable. Pt anxious stating I'm so confused. First they tell me I don't need surgery, then they tell me I do. I don't know what's going on. Patient's Response to Treatment : Fair Assessment : Patient demonstrates decreased activity tolerance, deficits in dynamic standing balance, decreased safety awareness, pain limiting function. Patient will benefit from continued skilled PT services while in hospital and will also benefit from continued skilled PT services via outpatient physical therapy once discharged for balance and safety training. Plan for Treatment : Continue with skilled PT intervention. Hilton Salgado PHYSICAL THERAPIST NON-EXEMPT - 03/18/2021 12:51 EDT Pain Assessment Pain Scaled Used : 0-10 Pain scale Pain Score Pre-Intervention : 6 Pain Score During-Intervention : 6 Pain Score Post-Intervention. : 6 Location : Arm, right Pain Improved by : Medication, Repositioning Hilton Salgado PHYSICAL THERAPIST NON-EXEMPT - 03/18/2021 12:51 EDT Image 1 - Images currently included in the form version of this document have not been included in the text rendition version of the form. Anticipated Discharge Needs, OT/PT Anticipated Discharge to : Outpatient rehabilitation Recommend Continued Therapy at Discharge : Yes Hilton Salgado PHYSICAL THERAPIST NON-EXEMPT - 03/18/2021 12:[address] [facility] PT Charges PT Eval Moderate Complexity : 1 Hilton Salgado PHYSICAL THERAPIST NON-EXEMPT - 03/18/2021 12:51 EDT documented in this encounter Plan of Treatment Not on file documented as of this encounter Visit Diagnoses Not on filedocumented in this encounter Care Teams Logistics Program Manager Relationship Specialty Start Date End Date Jay Howell MD [address] [place] [phone] PCP - General Emergency Medicine 11/12/23 documented as of this encounter
--- OUTSIDE RECORDS SUMMARY | 2025-07-12 08:37 | XMS_ITS | Encounter Summary ---
Author Organization [employer] ([place], [place], [place], [place]) Address [address] [place] [address] Care Team Providers Care Presentation Team Member Name Role Phone Jay Howell MD Primary Care Provider [phone] Encounter Details Date Type Department Care Team (Late st Contact Info) Description 03/17/2021 Transcribed Document [facility] [place] [address] [place] [phone] ProviderJessie MD [address] [place] [phone] Social History Tobacco Use Types Packs/Day Years Used Date Smoking Tobacco: Never Assessed Comments Unknown Sex and Gender Information Value Date Recorded Sex Assigned at Not on file Legal Sex Female 7:30 PM CDT Gender Identity Not on file Sexual Orientation Not on file documented as of this encounter Miscellaneous Notes * Cerner Conversion Note - Historical ProviderMD - 03/17/2021 2:57 PM CDT DATE OF CONSULTATION: 03/17/2021 NEUROLOGY CONSULT HISTORY OF PRESENT ILLNESS: Miladis Montoya is an 80-year-old white female with multiple medical problems including coronary artery disease, diabetes, hypertension, and atrial fibrillation, who was admitted to our hospital apparently yesterday through the emergency room when she presented with an episode of syncope, resulting in a right wrist fracture. I have been asked to evaluate her for syncope. The patient tells me that she was in her usual state of health until she woke up yesterday morning and she felt like she needed to go the bathroom. However, when she sat up, she felt dizzy and vertiginous and felt like she needed to throw up. She tried to walk to the bathroom, but again felt dizzy. She apparently passed out on her way to the bathroom and her heard her fall. She was unconscious for a few minutes and then came to. There was no loss of bowel or bladder control. There was no witnessed seizure activity. The patient was brought to our emergency room, where she was found to have a right wrist fracture. The patient is on chronic anticoagulation with Coumadin and her INR is 2.6. The patient tells me that she has had episodes of syncope in the past, but not in several years. MEDICATIONS: Here in the hospital include: 1. Atorvastatin. 2. Coreg. 3. Pepcid. 4. Sliding scale insulin. 5. Losartan. 6. Oxycodone. 7. Coumadin. 8. Zosyn. ALLERGIES: Macrodantin and morphine. MEDICATIONS AT HOME: According to a computerized home medication list may have included: 1. Multivitamins. 2. Atorvastatin. 3. Xanax. 4. Hydralazine. 5. Metformin. 6. Losartan. 7. Norvasc. 8. Lactobacillus. 9. Coumadin. 10. Omeprazole. 11. Hydrocodone p.r.n. 12. Coreg. 13. Ranexa. PAST MEDICAL HISTORY: 1. She used to smoke up until 30 years ago. 2. No alcohol use. 3. No illicit drug use. 4. Diabetes. 5. Coronary artery disease as manifested by coronary artery bypass grafting and multiple coronary artery stents in the past. 6. She has atrial fibrillation. 7. 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 8. She has had 3 back surgeries. 9. She has had a right hip replacement. 10. She has had an appendectomy. 11. In August of 2020, she was hospitalized with left lower extremity cellulitis and underwent intervention to her left leg for peripheral vascular disease and briefly was on a combination of Plavix and Coumadin. 12. In May of 2020, she was hospitalized here with hypertensive urgency. 13. In April of 2017, she was hospitalized here for hypertensive urgency and chest pain. SOCIAL HISTORY: The patient lives in [place] with her . She has 3 children, 2 of whom are living. 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 She still drives and walks independently. FAMILY HISTORY: Both of her parents of cancer. REVIEW OF SYSTEMS: GENERAL: She denies any fevers. EYES: She denies any visual loss. EARS: She denies any hearing loss. CARDIAC: She denies any chest pain. RESPIRATORY: She denies any shortness of breath. GI: She denies any changes in her bowel habits. : She denies any changes in her urinary habits. SKIN: She denies any rashes. MUSCULAR: She does have chronic muscle pain. NEUROLOGIC: She does have headaches, and they have been going on for a long time. PSYCHIATRIC: She denies any depression. ENDOCRINE: She does have diabetes. HEMATOLOGIC: She did have to have 6 units of blood when she had her coronary artery bypass grafting many years ago. PHYSICAL EXAMINATION: GENERAL: She is a well-developed female, in mild amount of distress, lying down with a cast on her right arm. VITAL SIGNS: Her blood pressure is 162/58, pulse is 77, respirations are 12. HEART: Regular rate and rhythm. LUNGS: Clear. NECK: Supple without any bruits. HEENT: An ophthalmologic exam was done and her pupils react equally to light, but I could not see her disc. NEUROLOGIC: Motor exam shows 5/5 strength in her left arm and both legs. I could not evaluate her right arm because she has a cast on it. Reflexes are 0 to 1+. Coordination shows intact ocpcnu-ce-teey on the left and [id number]-bs-lmzp on both sides. Gait was not tested. DIAGNOSTIC STUDIES: IMAGING STUDIES: The patient has had a CT scan of her head that is within normal limits. A carotid ultrasound and an echocardiogram are pending. LABORATORY RESULTS: Electrolytes are within normal limits. Cardiology consult is pending. She is on a heart monitor. CBC with diff is unremarkable. ASSESSMENT: Miladis Montoya is an 80-year-old with multiple medical problems including diabetes, coronary artery disease, atrial fibrillation, and a hip replacement, who had an episode of syncope yesterday. The differential could include one or a combination of the followin. Orthostasis. 2. Cardiac arrhythmia. 3. Cerebrovascular disease, such as a posterior circulation TIA or stroke. 4. Seizure. At this time, I do not know the exact etiology of her syncope yesterday and their multiple potential causes. At this time, I would recommend the followin. I see that orthostatics have been ordered and we will need to follow up on that. 2. Follow up on her carotid ultrasound and echocardiogram. 3. Follow up on the Cardiology consult. 4. Consideration could be given to an MRI and/or CTA of the head and neck. 5. At discharge, she should follow up with an outpatient neurologist and not drive until released by physician. Of note, I have spent over 80 minutes on this case today. Over half of that time was spent reviewing the chart and counseling the patient and her . I will follow with you. /[id number] Arron Clarke MD WSB/AQ / WSB / MODL /[id number] Electronically signed by [facility] Conversion Ski Tow Operator Cerner at 02/04/2023 2:15 PM CDT documented in this encounter Plan of Treatment Not on file documented as of this encounter Visit Diagnoses Not on filedocumented in this encounter Care Teams Presentation Team Member Relationship Specialty Start Date End Date Jay Howell MD [address] [place] [phone] PCP - General Emergency Medicine 11/12/23 documented as of this encounter
--- OUTSIDE RECORDS SUMMARY | 2025-07-12 08:37 | XMS_ITS | Encounter Summary ---
Author Organization [employer] ([place], [place], [place], [place]) Address [address] [place] [address] Care Team Providers Care Air Traffic Control Supervisor Name Role Phone Jay Howell MD Primary Care Provider [phone] Encounter Details Date Type Department Care Team (Late st Contact Info) Description 03/17/2021 Transcribed Document [facility] [place] [facility] [place] [address] ProviderJessie MD [address] [place] [id number] Social History Tobacco Use Types Packs/Day Years Used Date Smoking Tobacco: Never Assessed Comments Unknown Sex and Gender Information Value Date Recorded Sex Assigned at Not on file Legal Sex Female 7:30 PM CDT Gender Identity Not on file Sexual Orientation Not on file documented as of this encounter Miscellaneous Notes * Cerner Conversion Note - Historical ProviderMD - 03/17/2021 2:00 AM CDT Seals Engraver Details Entered On: 03/17/2021 3:32 EDT Performed On: 03/17/2021 2:00 EDT by Susan Marks RN-PATIENT CARE BEDSIDE NON-EXEMPT Order Details Transport Mode Order Detail : Wheelchair Isolation Precautions Order Detail : Standard Precautions Order Detail : N/A IV Order Detail : 1 Oxygen Order Detail : 1 Nurse Collect Order Detail : 0 Lift/Transfer : Moderate assist Central Line Order Detail : No Room Service : Appropriate Arterial Line : No Patient Needs Meds Crushed/Liquid : No Susan Marks RN-PATIENT CARE BEDSIDE NON-EXEMPT - 03/17/2021 3:32 EDT Electronically signed by [facility] Conversion Tool Lathe Operator Cerner at 02/04/2023 2:22 PM CDT documented in this encounter Plan of Treatment Not on file documented as of this encounter Visit Diagnoses Not on filedocumented in this encounter Care Teams Air Traffic Control Supervisor Relationship Specialty Start Date End Date Jay Howell MD [address] [place] [phone] PCP - General Emergency Medicine 11/12/23 documented as of this encounter
--- OUTSIDE RECORDS SUMMARY | 2025-07-12 08:37 | XMS_ITS | Encounter Summary ---
Author Organization [employer] ([place], [place], [place], [place]) Address [address] [place] [address] Care Team Providers Care Direct Chill Casting Operator Name Role Phone Jay Howell MD Primary Care Provider [phone] Encounter Details Date Type Department Care Team (Late st Contact Info) Description 03/17/2021 Transcribed Document [facility] Radiology [address] [place] [address] Samantha Guzman MD [facility] [address] [place] [address] Social History Tobacco Use Types Packs/Day Years Used Date Smoking Tobacco: Never Assessed Comments Unknown Sex and Gender Information Value Date Recorded Sex Assigned at Not on file Legal Sex Female 7:30 PM CDT Gender Identity Not on file Sexual Orientation Not on file documented as of this encounter Miscellaneous Notes * Cerner Conversion Note - Samantha Guzman MD - 03/17/2021 9:45 AM EDT Patient: SKYLER MONTOYA Age: 80 Years Sex: Female : 1940 Chief Complaint Pt states woke up felt funny went to bathroom and passed out, c/o right hip/ wrist pain, and neck pain. states she thinks she has a UTI as well Reason for Consultation Right wrist fracture History of Present Illness This is an 80-year-old female, who was brought in because she had syncopal episode. The patient said she fell and hit her head, right upper extremity and her back. The patient came in to be evaluated, had multiple imaging studies. The patient with right wrist fracture. CT of head and spine with no acute abnormality. The patient had blood work, shows elevated lactic acid and culture was ordered. Start empirically of IV antibiotic. The patient lying in bed, anxious, in pain, mild distress. at bedside. She was diagnosed with a closed right distal radius fracture in the emergency department. This was appropriately reduced and splinted in the ER. We are consult for management of this orthopedic condition. Review of Systems GENERAL: No fever or chills. HEAD: Positive [...] changes. ENDOCRINE: No heat or cold intolerance. [1] Vital Signs T: 37.1 ??C TMIN: 36.3 ??C TMAX: 37.1 ??C HR: 75(Monitored) RR: 18 BP: 170/63 SpO2: 94% HT: 160.02 cm WT: 71.82 kg BMI: 28 Oxygen Settings (Last) Oxygen Therapy Mode: Nasal cannula (03/17/21 06:26:00) Oxygen Flow Rate: 2 Liter/Min (03/17/21 06:26:00) Physical Exam Pleasant 80-year-old female, in some distress referrable to her right upper extremity. Afebrile, stable vital signs. Nonlabored breathing. Alert and oriented ??3. Examination of the right upper extremity reveals a sugar tong splint, in good repair. She is able to grossly wiggle all of her digits. She has normal sensation to light touch in radial, median, and ulnar nerve distributions. Brisk capillary refill in all digits. Assessment/Plan 80-year-old female, right intra-articular distal radius fracture 1. The patient may benefit from ORIF, but this is not urgent, and will not be performed during this hospitalization. 2. The patient is an appropriate immobilization for the time being. 3. Recommend follow-up with Dr. Comer, or Anabell once discharged, later this week. They can discuss the risks and benefits of surgery at that time. 4. No plans for imminent surgery during this hospitalization. Okay to eat from our standpoint. Call with questions. Back strain Right wrist fracture Syncope, Syncope and collapse, Syncope and collapse Syncope/Near syncope VTE Prophylaxis - Medical Sequential Compression Device Start: 03/16/21 17:31:00 EDT, Bilateral, Length: Knee High, While patient is in bed, Continuous Order (MARIA ELENA DAVALOS) Provider Information Primary Care Physician - TARA CHEN (REF), -MED Attending Physician - MARIA ELENA DAVALOS MD-ROSIE Admitting Physician - MARIA ELENA DAVALOS MD-ROSIE Consulting Physician - SAMANTHA GUZMAN MD-ORT ([facility])- right wrist fracture Consulting Physician - FREDY YAÑEZ MD-CAR (Cardiology)- syncope Consulting Physician - EMA BUSTILLOS MD-ANDRES (Neurology)- syncope Referring Physician - PHY, SELF REFERRED Problem List/Past Medical History Ongoing Apnea, sleep Arthritis Atrial fibrillation with RVR Blood clot Cataract Chest pain Chronic anticoagulation Clotting disorder COPD Coronary artery disease Diabetes mellitus Emphysema GERD - Gastro-esophageal reflux disease Glaucoma High blood pressure History of obstructive sleep apnea Hx of pulmonary embolus Hyperlipidemia Multiple renal cysts Stented coronary artery Historical UTI - Urinary tract infection Procedure/Surgical History DILATION OF LEFT PERONEAL ARTERY, PERCUTANEOUS APPROACH (08/26/2020), DILATION OF LEFT POSTERIOR TIBIAL ARTERY, PERC APPROACH (08/26/2020), EXCISION OF LEFT LOWER LEG MUSCLE, OPEN APPROACH (08/26/2020), EXTIRPATION OF MATTER FROM L LOW LEG MUSCLE, OPEN APPROACH (08/26/2020), FLUOROSCOPY OF MULTIPLE CORONARY ARTERIES USING OTH CONTRAST (04/15/2017), MEASURE OF CARDIAC SAMPL & PRESSURE, L HEART, PERC APPROACH (04/15/2017), Cardiac Stent (2010), Cardiac Stent (01/30/2008), Coronary artery bypass graft (1992), Appendectomy, back surgury, cataract surgury, Cholecystectomy, femur repair, Hip replacement, Hysterectomy, uterine suspension. Medications Inpatient Ativan, 0.5 mg= 0.25 mL, IV Push, Q4H, PRN cloNIDine, 0.1 mg= 1 Tab, Oral, Q4H, PRN Dilaudid, 0.5 mg= 0.5 mL, IV Push, Q4H, PRN DuoNeb 0.5 mg-2.5 mg/3 mL inhalation solution, 3 mL, Nebulized Inhalation , Q6H, PRN hydrALAZINE, 10 mg= 0.5 mL, IV Push, Q6H, PRN insulin lispro 50 kg - 75 kg, 50 kg - 75 kg scale, SubCutaneous, AC and at Bedtime Normal Saline 1,000 mL, 1000 mL, IntraVENous oxyCODONE, 5 mg= 1 Tab, Oral, Q4H, PRN Pepcid, 20 mg= 1 Tab, Oral, Daily Phenergan, 6.25 mg= 0.25 mL, IntraVENous, Q6H, PRN Tylenol, 650 mg= 2 Tab, Oral, Q4H, PRN Zofran, 4 mg= 2 mL, IV Push, Q4H, PRN Zosyn + Sodium Chloride 0.9% intravenous solution 100 mL Zosyn + Sodium Chloride 0.9% intravenous solution 100 mL Home atorvastatin 80 mg oral tablet, 80 mg= 1 Tab, Oral, At Bedtime carvedilol 6.25 mg oral tablet, 6.25 mg= 1 Tab, Oral, TID Coumadin 3 mg oral tablet, 3 mg= 1 Tab, Oral, Daily dorzolamide 2% ophthalmic solution, 1 Drop, Eye Right, BID hydrALAZINE 100 mg oral tablet, 100 mg= 1 Tab, Oral, BID lactobacillus acidophilus oral tablet, 2 Tab, Oral, Daily Lidoderm 5% topical film, 1 Patch, TransDermal, Daily losartan 100 mg oral tablet, 100 mg= 1 Tab, Oral, Daily metFORMIN 500 mg oral tablet, extended release, 500 mg= 1 Tab, Oral, BID With Meals Multiple Vitamins oral tablet, 1 Tab, Oral, Daily Clarion 7.5 mg-325 mg oral tablet, 1 Tab, Oral, Q6H, PRN Norvasc 10 mg oral tablet, 10 mg= 1 Tab, Oral, Daily omeprazole 40 mg oral delayed release capsule, 40 mg= 1 Cap, Oral, Daily Ranexa 500 mg oral tablet, extended release, 1000 mg= 2 Tab, Oral, BID Xanax 0.5 mg oral tablet, 0.5 mg= 1 Tab, Oral, At Bedtime, PRN Allergies Macrodantin morphine (rash, rash) Social History Alcohol Use in Last 12 Months: No. Home/Environment Lives with Spouse. Living situation: Home/Independent. Nutrition/Health Caffeine intake amount: 2. Substance Abuse Drug Use Hx: No. Tobacco Smoking Status Former smoker. Family History Cancer: Mother, Father and Sister. Cardiomyopathy: Child. Coronary heart disease: Child. Heart attack: Sister and Brother. Leukemia: Child. Stroke: Brother. Diagnostic Results RIGHT WRIST SERIES. HISTORY: Right wrist pain, fall. COMPARISON:None FINDINGS: A three view exam demonstrates a comminuted, intra-articular distal radial fracture. There is an ulnar styloid fracture. No other fracture identified. There is osteopenia. There are vascular calcifications. IMPRESSION: Wrist fractures as above. [2] Lab Results Test Name Test Result Date/Time Sodium Level 137 mmol/L 03/17/2021 03:42 EDT Sodium Level 138 mmol/L 03/16/2021 11:38 EDT Potassium Level 3.7 mmol/L 03/17/2021 03:42 EDT Potassium Level 4.4 mmol/L 03/16/2021 11:38 EDT Chloride Level 108 mmol/L 03/17/2021 03:42 EDT Chloride Level 107 mmol/L 03/16/2021 11:38 EDT Carbon Dioxide Level 23 mmol/L 03/17/2021 03:42 EDT Carbon Dioxide Level 27 mmol/L 03/16/2021 11:38 EDT Anion Gap 10 03/17/2021 03:42 EDT Anion Gap 8 (Low) 03/16/2021 11:38 EDT Glucose Level 177 mg/dL (High) 03/17/2021 03:42 EDT Glucose Level 161 mg/dL (High) 03/16/2021 11:38 EDT Blood Urea Nitrogen 12 mg/dL 03/17/2021 03:42 EDT Blood Urea Nitrogen 21 mg/dL 03/16/2021 11:38 EDT Creatinine Level 0.60 mg/dL 03/17/2021 03:42 EDT Creatinine Level 0.90 mg/dL 03/16/2021 11:38 EDT eGFR >60 mL/min/1.73m2 03/17/2021 03:42 EDT eGFR >60 mL/min/1.73m2 03/16/2021 11:38 EDT eGFR NonAfrican >60 mL/min/1.73m2 03/17/2021 03:42 EDT eGFR NonAfrican 60 mL/min/1.73m2 03/16/2021 11:38 EDT Bun/Creatinine 20.0 03/17/2021 03:42 EDT Bun/Creatinine 23.3 (High) 03/16/2021 11:38 EDT Calcium Level 8.6 mg/dL 03/17/2021 03:42 EDT Calcium Level 9.7 mg/dL 03/16/2021 11:38 EDT Protein Total 8.8 Gram/dL (High) 03/16/2021 11:38 EDT Albumin Level 4.2 Gram/dL 03/16/2021 11:38 EDT Globulin 4.6 Gram/dL (High) 03/16/2021 11:38 EDT A/G Ratio 0.9 (Low) 03/16/2021 11:38 EDT Bilirubin Total 0.6 mg/dL 03/16/2021 11:38 EDT Alk Phos 76 Units/Liter 03/16/2021 11:38 EDT AST 27 Units/Liter 03/16/2021 11:38 EDT ALT 38 Units/Liter 03/16/2021 11:38 EDT Magnesium Level 1.5 mg/dL 03/17/2021 03:42 EDT Device Comment 1 Notified Nurse RBV 03/16/2021 22:44 EDT Glucose POC2 111 mg/dL (High) 03/16/2021 22:44 EDT Lipase Level 105 Units/Liter 03/16/2021 11:38 EDT Lactic Acid Level 0.8 mmol/L 03/17/2021 03:42 EDT Lactic Acid Level 2.1 mmol/L (Critical) 03/16/2021 14:09 EDT Lactic Acid Level 2.2 mmol/L (Critical) 03/16/2021 11:38 EDT Troponin I Ultra <0.015 ng/mL 03/17/2021 03:42 EDT Troponin I Ultra <0.015 ng/mL 03/16/2021 11:38 EDT ProBNP 576 pg/mL (High) 03/17/2021 03:42 EDT WBC 10.0 K/uL 03/17/2021 03:42 EDT WBC 9.7 K/uL 03/16/2021 11:38 EDT RBC 3.48 Million/uL (Low) 03/17/2021 03:42 EDT RBC 3.84 Million/uL (Low) 03/16/2021 11:38 EDT Hgb 10.9 g/dL (Low) 03/17/2021 03:42 EDT Hgb 12.0 g/dL 03/16/2021 11:38 EDT Hct 33.6 % (Low) 03/17/2021 03:42 EDT Hct 37.6 % 03/16/2021 11:38 EDT MCV 96.6 fL (High) 03/17/2021 03:42 EDT MCV 97.9 fL (High) 03/16/2021 11:38 EDT MCH 31.3 pg 03/17/2021 03:42 EDT MCH 31.3 pg 03/16/2021 11:38 EDT MCHC 32.4 Gram/dL 03/17/2021 03:42 EDT MCHC 31.9 Gram/dL (Low) 03/16/2021 11:38 EDT Platelet Count 164 K/uL 03/17/2021 03:42 EDT Platelet Count 161 K/uL (Low) 03/16/2021 11:38 EDT MPV 10.7 fL 03/17/2021 03:42 EDT MPV 10.0 fL 03/16/2021 11:38 EDT RDW 13.1 % 03/17/2021 03:42 EDT RDW 13.0 % 03/16/2021 11:38 EDT Neut % 78.4 % (High) 03/16/2021 11:38 EDT Neut # 7.63 K/uL (High) 03/16/2021 11:38 EDT Lymph % 15.6 % (Low) 03/16/2021 11:38 EDT Lymph # 1.52 x10(3)/uL 03/16/2021 11:38 EDT [place] % 5.1 % 03/16/2021 11:38 EDT [place] # 0.50 K/uL 03/16/2021 11:38 EDT Eos % 0.0 % 03/16/2021 11:38 EDT Eos # 0.00 x10(3)/uL 03/16/2021 11:38 EDT Baso % 0.3 % 03/16/2021 11:38 EDT Baso # 0.03 x10(3)/uL 03/16/2021 11:38 EDT Slide Review No 03/17/2021 03:42 EDT Slide Review No 03/16/2021 11:38 EDT IG# 0.06 x10(3)/uL (High) 03/16/2021 11:38 EDT IG% 0.60 % 03/16/2021 11:38 EDT PT 25.6 Second(s) (High) 03/16/2021 11:44 EDT INR 2.6 (High) 03/16/2021 11:44 EDT PTT 34.1 Second(s) (High) 03/16/2021 11:44 EDT Urine Type. U CleanCatch 03/17/2021 04:10 EDT Urine Type. U CleanCatch 03/16/2021 14:09 EDT Urine Color YELLOW2 03/17/2021 04:10 EDT Urine Color YELLOW2 03/16/2021 14:09 EDT Urine Appearance CLEAR2 03/17/2021 04:10 EDT Urine Appearance CLEAR2 03/16/2021 14:09 EDT Urine Specific [place] 1.015 03/17/2021 04:10 EDT Urine Specific [place] 1.014 03/16/2021 14:09 EDT Urine pH Dipstick 5.5 (Low) 03/17/2021 04:10 EDT Urine pH Dipstick 5.5 (Low) 03/16/2021 14:09 EDT Urine Leukocyte Esterase NEGATIVE2 03/17/2021 04:10 EDT Urine Leukocyte Esterase NEGATIVE2 03/16/2021 14:09 EDT Urine Nitrite NEGATIVE2 03/17/2021 04:10 EDT Urine Nitrite NEGATIVE2 03/16/2021 14:09 EDT Urine Protein Dipstick 30 (Abnormal) 03/17/2021 04:10 EDT Urine Protein Dipstick NEGATIVE2 03/16/2021 14:09 EDT Urine Glucose Dipstick NEGATIVE2 03/17/2021 04:10 EDT Urine Glucose Dipstick NEGATIVE2 03/16/2021 14:09 EDT Urine Ketones Dipstick NEGATIVE2 03/17/2021 04:10 EDT Urine Ketones Dipstick NEGATIVE2 03/16/2021 14:09 EDT Urine Urobilinogen Dipstick 0.2 03/17/2021 04:10 EDT Urine Urobilinogen Dipstick 0.2 03/16/2021 14:09 EDT Urine Bilirubin Dipstick NEGATIVE2 03/17/2021 04:10 EDT Urine Bilirubin Dipstick NEGATIVE2 03/16/2021 14:09 EDT Urine Blood Dipstick NEGATIVE2 03/17/2021 04:10 EDT Urine Blood Dipstick NEGATIVE2 03/16/2021 14:09 EDT Ur RBC 0-2 (Abnormal) 03/17/2021 04:10 EDT Ur WBC 0-2 03/17/2021 04:10 EDT Ur Bacteria Trace (Abnormal) 03/17/2021 04:10 EDT Ur Squamous Epithelial Cells 2-5 (Abnormal) 03/17/2021 04:10 EDT Ur Hyaline Casts 0-2 (Abnormal) 03/17/2021 04:10 EDT Urine Culture if Indicated Not Indicated 03/17/2021 04:10 EDT Urine Culture if Indicated Not Indicated 03/16/2021 14:09 EDT Procalcitonin <0.25 ng/mL 03/16/2021 17:35 EDT SARS-CoV-2 (COVID19 PCR) NEGATIVE2 03/16/2021 15:20 EDT [1] History and Physical; MARIA ELENA DAVALOS MD-[facility] 03/16/2021 17:39 EDT [2] CR Wrist Min 3 Vws RT; Roni Guerra, Diet Aid 03/16/2021 12:13 EDT documented in this encounter Plan of Treatment Not on file documented as of this encounter Visit Diagnoses Not on filedocumented in this encounter Care Teams Direct Chill Casting Operator Relationship Specialty Start Date End Date Jay Howell MD [address] [place] [phone] PCP - General Emergency Medicine 11/12/23 documented as of this encounter
--- OUTSIDE RECORDS SUMMARY | 2025-07-12 08:37 | XMS_ITS | Encounter Summary ---
Author Organization [employer] ([place], [place], [place], [place]) Address [address] [place] [address] Care Team Providers Care Licensed Nursing Assistant Name Role Phone Jay Howell MD Primary Care Provider [phone] Encounter Details Date Type Department Care Team (Late st Contact Info) Description 03/17/2021 Transcribed Document [facility] [place] Family [place] [facility] [place] [address] ProviderJessie MD [address] [place] [phone] Social History Tobacco Use Types Packs/Day Years Used Date Smoking Tobacco: Never Assessed Comments Unknown Sex and Gender Information Value Date Recorded Sex Assigned at Not on file Legal Sex Female 7:30 PM CDT Gender Identity Not on file Sexual Orientation Not on file documented as of this encounter Miscellaneous Notes * Cerner Conversion Note - Historical ProviderMD - 03/17/2021 5:00 AM CDT Chart Check - Review Order Profile Entered On: 03/17/2021 6:46 EDT Performed On: 03/17/2021 5:00 EDT by Susan Marks RN-PATIENT CARE BEDSIDE NON-EXEMPT Chart Check Powerplans Initiated/Discontinued as Appropriate : Yes All Active Orders Reviewed : Yes Susan Marks RN-PATIENT CARE BEDSIDE NON-EXEMPT - 03/17/2021 6:46 EDT documented in this encounter Plan of Treatment Not on file documented as of this encounter Visit Diagnoses Not on filedocumented in this encounter Care Teams Licensed Nursing Assistant Relationship Specialty Start Date End Date Jay Howell MD [address] [place] [phone] PCP - General Emergency Medicine 11/12/23 documented as of this encounter
--- OUTSIDE RECORDS SUMMARY | 2025-07-12 08:37 | XMS_ITS | Encounter Summary ---
Author Organization [email or web address] ([place], [place], [place], [place]) Address [address] [place] [address] Care Team Providers Care Coconut Boiler Name Role Phone Jay Howell MD Primary Care Provider [phone] Encounter Details Date Type Department Care Team (Late st Contact Info) Description 03/17/2021 Transcribed Document [facility] [place] [facility] [place] [address] ProviderJessie MD [address] [place], [place] [id number] Social History Tobacco Use Types Packs/Day Years Used Date Smoking Tobacco: Never Assessed Comments Unknown Sex and Gender Information Value Date Recorded Sex Assigned at Not on file Legal Sex Female 7:30 PM CDT Gender Identity Not on file Sexual Orientation Not on file documented as of this encounter Miscellaneous Notes * Cerner Conversion Note - Historical ProviderMD - 03/17/2021 3:21 PM CDT GARCIA/IMM Entered On: 03/17/2021 15:21 EDT Performed On: 03/17/2021 15:21 EDT by MARILYNN RAMÍREZ, RN-Utilization Review GARCIA/IMM Who Was The GARCIA Reviewed With : Family member When Was The GARCIA Reviewed : 03/17/2021 15:10 EDT MARILYNN RAMÍREZ, RN-Utilization Review - 03/17/2021 15:21 EDT Electronically signed by Sivan [facility] Conversion Sustainable Communities Designer Cerner at 02/04/2023 2:16 PM CDT documented in this encounter Plan of Treatment Not on file documented as of this encounter Visit Diagnoses Not on filedocumented in this encounter Care Teams Coconut Boiler Relationship Specialty Start Date End Date Jay Howell MD [address] [place] [phone] PCP - General Emergency Medicine 11/12/23 documented as of this encounter
--- OUTSIDE RECORDS SUMMARY | 2025-07-12 08:37 | XMS_ITS | Encounter Summary ---
Author Organization [employer] ([place], [place], [place], [place]) Address [address] [place] [address] Care Team Providers Care Candy Spreader Name Role Phone Jay Howell MD Primary Care Provider [phone] Encounter Details Date Type Department Care Team (Late st Contact Info) Description 08/24/2020 Transcribed Document [facility] [place] Family Medicine [address] [place] [address] ProviderJessie MD [address] [place], [place] [phone] Social History Tobacco Use Types Packs/Day Years Used Date Smoking Tobacco: Never Assessed Comments Unknown Sex and Gender Information Value Date Recorded Sex Assigned at Not on file Legal Sex Female 7:30 PM CDT Gender Identity Not on file Sexual Orientation Not on file documented as of this encounter Miscellaneous Notes * Cerner Conversion Note - Historical ProviderMD - 08/24/2020 7:06 PM FOOD SERVICE KITCHEN SUPERVISOR CR Ankle Min 3 Vws LT Ordered: 08/22/2020 Auth (Verified) Reason for Exam: fall08/23/2020 11:53 CR Tibia Fibula 2 Vws LT Ordered: 08/22/2020 Auth (Verified) Reason for Exam: fall08/23/2020 11:53 08/24/2020 19:06 (TRACIE TORRES PA) Reviewed by Provider, No further action required X1 - no acute 08/23/2020 14:33 (ROBBY SANTAMARIA) Provider Review Required documented in this encounter Plan of Treatment Not on file documented as of this encounter Visit Diagnoses Not on filedocumented in this encounter Care Teams Candy Spreader Relationship Specialty Start Date End Date Jay Howell MD [address] [place] [phone] PCP - General Emergency Medicine 11/12/23 documented as of this encounter
--- OUTSIDE RECORDS SUMMARY | 2025-07-12 08:38 | XMS_ITS | Encounter Summary ---
Author Organization [employer] ([place], [place], [place], [place]) Address [address] [place] [address] Care Team Providers Care Skeins Yarn Examiner Name Role Phone Jay Howell MD Primary Care Provider [phone] Encounter Details Date Type Department Care Team (Late st Contact Info) Description 08/25/2020 Transcribed Document [facility] [place] [address] [place] [address] ProviderJessie MD [address] [place] [address] Social History Tobacco Use Types Packs/Day Years Used Date Smoking Tobacco: Never Assessed Comments Unknown Sex and Gender Information Value Date Recorded Sex Assigned at Not on file Legal Sex Female 7:30 PM CDT Gender Identity Not on file Sexual Orientation Not on file documented as of this encounter Miscellaneous Notes * Cerner Conversion Note - Historical ProviderMD - 08/25/2020 4:33 AM AD COPY WRITER Broset Violence Assessment Entered On: 08/25/2020 5:10 EST Performed On: 08/25/2020 5:10 EST by Yajaira Magallon Rn Broset Violence Assessment Broset Violence Checklist of Symptoms : None Broset Violence Symptoms Subtotal : 0 Broset Violence Symptoms Indicator : Low risk (0) Yajaira Magallon Rn - 08/25/2020 5:10 EST Electronically signed by Sivan [facility] Conversion Embedded Firmware Developer Cerner at 02/04/2023 2:10 PM CDT documented in this encounter Plan of Treatment Not on file documented as of this encounter Visit Diagnoses Not on filedocumented in this encounter Care Teams Skeins Yarn Examiner Relationship Specialty Start Date End Date Jay Howell MD [address] [place] [phone] PCP - General Emergency Medicine 11/12/23 documented as of this encounter
--- OUTSIDE RECORDS SUMMARY | 2025-07-12 08:38 | XMS_ITS | Encounter Summary ---
Author Organization [employer] ([place], [place], [place], [place]) Address [address] [place] [address] Care Team Providers Care Awnings Mechanic Name Role Phone Jay Howell MD Primary Care Provider [phone] Encounter Details Date Type Department Care Team (Late st Contact Info) Description 03/17/2021 Transcribed Document [facility] [place] [address] [place] [phone] ProviderJessie MD [address] [place] [phone] Social History Tobacco Use Types Packs/Day Years [...] CDT Consult Phone Call Documentation Entered On: 03/18/2021 8:32 EDT Performed On: 03/17/2021 9:00 EDT by TASHI LIND [facility] Phone Call for Consults Consult, Additional Information : notified by physician TASHI LIND, [facility] - 03/18/2021 8:31 EDT documented in this encounter Plan of Treatment Not on file documented as of this encounter Visit Diagnoses Not on filedocumented in this encounter Care Teams Awnings Mechanic Relationship Specialty Start Date End Date Jay Howell MD [address] [place] [phone] PCP - General Emergency Medicine 11/12/23 documented as of this encounter
--- OUTSIDE RECORDS SUMMARY | 2025-07-12 08:38 | XMS_ITS | Encounter Summary ---
Author Organization [employer] ([place], [place], [place], [place]) Address [address] [place] [address] Care Team Providers Care Pulp Mill Team Leader Name Role Phone Jay Howell MD Primary Care Provider [phone] Encounter Details Date Type Department Care Team (Late st Contact Info) Description 03/17/2021 Transcribed Document [facility] [place] [facility] [place] [address] ProviderJessie MD [address] [place] [address] Social History Tobacco Use Types Packs/Day Years Used Date Smoking Tobacco: Never Assessed Comments Unknown Sex and Gender Information Value Date Recorded Sex Assigned at Not on file Legal Sex Female 7:30 PM CDT Gender Identity Not on file Sexual Orientation Not on file documented as of this encounter Miscellaneous Notes * Cerner Conversion Note - Historical ProviderMD - 03/17/2021 10:01 AM CDT Initial Discharge Planning Entered On: 03/17/2021 10:03 EDT Performed On: 03/17/2021 10:01 EDT by Krystina Giang V Restoration Technician Felipe Initial Assessment I Legal Guardian : No Krystina Giang V Restoration Technician Felipe - 03/17/2021 14:24 EDT Previously Documented Living Environment : No qualifying data available. Living Situation : Home Patient Lives With : Spouse Employment/Vocation : retired Emergency Contact #1 : Leonardo Emergency Contact #1 Emergency Contact #1 Relationship : Son Emergency Contact #2 : Christian Emergency Contact #2 Emergency Contact #2 Relationship : Son Rahat Social Kayla Khoury [facility] [place] - 03/17/2021 10:01 EDT Enter Doctors Name : Krystina Welsh Social Worker [facility] 03/17/2021 14:24 EDT Does Patient have PCP Listed? : Yes Medical Durable Power of Potato Peeler Name : No Krystina Giang Social Worker [facility] [place] - 03/17/2021 10:01 EDT Initial Assessment II Sensory and Motor Deficits : Weakness Krystina Giang Social Worker [facility] 03/17/2021 10:01 EDT Current Home Treatments and Equipment : Bedside commode, CPAP, Shower chair, Walker, Wheelchair Krystina Giang Social Worker [facility] 03/17/2021 14:24 EDT Discharge Needs I Anticipated Discharge Date : 03/19/2021 EDT Anticipated Discharge To, CM : Home with home health Krystina Giang Social Worker [facility] - 03/17/2021 14:24 EDT Current Home Treatment/Equipment : Current Home Treatment/Equipment No qualifying data available. Documentation Status Complete : Yes Krystina Giang Social Worker [facility] 03/17/2021 10:01 EDT Discharge Needs II Professional Skilled Services : Professional Skilled Services No qualifying data available. Needs Assistance with Transportation : No Discharge Options Discussed with Patient : Discharge transportation, DME, Home Health, Short term rehabilitation Krystina Giang Social Worker [facility] 03/17/2021 10:01 EDT Narrative Note Narrative Note : HD#1, ELOS-not reported, RRS-Moderate, Boost- 80 yo female admitted for syncopal episide. She fell and hit her head and suffered a right wrist fracture. Cardiology, Neurology, Orthopedics consults noted. She lives with her spouse. Independent with ADLs prior to admission. DME-walker, shower chair, BSC, cpap thru [facility] in [place]. No home 02. HHS in the past out of [place]. Denies rehab stays. DCP-Home with spouse. Possible HHPT/OT CM to follow Krystina Giang Social Worker [facility] - 03/17/2021 14:24 EDT Electronically signed by Sivan [facility] Conversion Services Tech Cerner at 02/04/2023 2:01 PM CDT documented in this encounter Plan of Treatment Not on file documented as of this encounter Visit Diagnoses Not on filedocumented in this encounter Care Teams Pulp Mill Team Leader Relationship Specialty Start Date End Date Jay Hoewll MD [address] [place] [phone] PCP - General Emergency Medicine 11/12/23 documented as of this encounter
--- OUTSIDE RECORDS SUMMARY | 2025-07-12 08:38 | XMS_ITS | Encounter Summary ---
Author Organization [employer] ([place], [place], [place], [place]) Address [address] [place] [address] Care Team Providers Care Appeals Manager Name Role Phone Jay Howell MD Primary Care Provider [phone] Encounter Details Date Type Department Care Team (Late st Contact Info) Description 03/17/2021 Transcribed Document [facility] [place] [address] [place] [address] ProviderJessie MD [address] [place] [phone] Social History Tobacco Use Types Packs/Day Years Used Date Smoking Tobacco: Never Assessed Comments Unknown Sex and Gender Information Value Date Recorded Sex Assigned at Not on file Legal Sex Female 7:30 PM CDT Gender Identity Not on file Sexual Orientation Not on file documented as of this encounter Miscellaneous Notes * Cerner Conversion Note - Historical ProviderMD - 03/17/2021 10:58 AM CDT Patient: SKYLER MONTOYA Age: 80 Years Sex: Female : 1940 Subjective Pt seen/eval today 03/17; She is resting c/o pain right arm but pain meds helping. She had an episode of burning and tight CP over the past couple of hours, tells me she gets this all the time at home when her HR increases from Afib. It has resolved now, never had dyspnea. Nurse called cardiology and they are aware, ordered EKG. Pt otherwise has no complaints/concerns. She reports an episode of room spinning dizziness with nausea and dry heaving after getting up to go to the bathroom last night, she got up again to go vomit and thats when she passed out. No more dizziness since admission. Vital Signs T: 37.1 ??C TMIN: 36.3 ??C TMAX: 37.1 ??C HR: 75(Monitored) RR: 18 BP: 170/63 SpO2: 94% HT: 160.02 cm WT: 71.82 kg BMI: 28 Oxygen Settings (Last) Oxygen Therapy Mode: Nasal cannula (03/17/21 09:31:00) Oxygen Flow Rate: 2 Liter/Min (03/17/21 09:31:00) Intake & Output Totals Last 24 Hours (7a-7a) Input Total: 621 mL Output Total: 920 mL Balance: -299 mL Physical Exam HEENT: Head, atraumatic and normocephalic. Pupils are round and reactive NECK: Supple. Full range of motion. Lungs: Poor inspiratory effort. Clear to auscultation. No wheeze, crackle, or rhonchi. HEART: S1 and S2 heard. Regular rate and rhythm. ABDOMEN: Soft. Audible bowel sounds. No tenderness. No guarding. No rebound tenderness. EXTREMITIES: Right upper extremity splinted brisk cap refill fingers right, Lower extremity; no edema, erythema, or tenderness. NEUROLOGIC: No apparent focal motor or sensory deficit. The patient is alert, awake, oriented x3. Intact cranial nerves. PSYCHIATRIC: Positive for anxiety. ENDOCRINE: No thyromegaly or tenderness. GENERAL: The patient lying in bed, resting a little anxious Assessment/Plan Syncope. The patient admitted to the hospital to rule out arrhythmia. We will monitor closely. Cardiology consulted The patient will be in telemetry. We will consult Neurology. CT of head done with no acute abnormality. -CARD: EKG Echocardiogram Carotid artery duplex Gentle IV hydration Replace electrolytes Restart losartan /statin Further recommendations pending response to above - She reports an episode of room spinning dizziness with nausea and dry heaving after getting up to go to the bathroom last night, she got up again to go vomit and thats when she passed out maybe vertigo/vasovagal related to syncope; neuro consult still pending. ECHO: Normal left ventricular wall thickness. Visually estimated ejection fraction 60% +/- 5%. Normal left ventricular systolic function. No hemodynamically significant valvular heart disease. No masses or thrombi are seen. CAROTID: RIGHT: 50-69% stenosis of the internal carotid artery. ECA >50% Stenosis. Normal antegrade vertebral flow. No evidence of subclavian steal. LEFT: Subclavian artery stenosis is greater than 50%. 50-69% stenosis of the internal carotid artery. ECA >50% Stenosis. Normal antegrade vertebral flow. No evidence of subclavian steal [1] History of atrial fibrillation, rate controlled. We will hold Coumadin for tonight. -no surgery during hospitalization per ortho resume home dose coumadin INR 1.8 recheck in AM Right wrist fracture. We will consult Ortho. Start pain control. The patient will be n.p.o. after midnight for surgical evaluation. -ORTHO: The patient may benefit from ORIF, but this is not urgent, and will not be performed during this hospitalization. 2. The patient is an appropriate immobilization for the time being. 3. Recommend follow-up with Dr. Comer, or Anabell once discharged, later this week. They can discuss the risks and benefits of surgery at that time. -having a lot of pain, ordered one time dose of toradol IV renal fxn normal; made oxycodone scheduled. PT Hypertension. We will start hydralazine as needed. -card restarted losartan and coreg History of chronic obstructive pulmonary disease. She will be on DuoNeb as needed, continuous oxygen. Coronary artery disease. The patient with normal troponin. Recheck troponin in a.m. No chest pain. -repeat troponin Nothing that pertains to this complaint -pt had episode of 2 hours of burning chest pain today, EKG did not show any acute changes and two subsequent troponins negative. Cardiology aware. Diabetes mellitus. We will start sliding scale. 9. GI prophylaxis, Pepcid. 10. Deep venous prophylaxis, compression boot. VTE Prophylaxis - Medical coumadin Sequential Compression Device Start: 03/16/21 17:31:00 EDT, Bilateral, Length: Knee High, While patient is in bed, Continuous Order (MARIA ELENA DAVALOS) Medications Ativan, 0.5 mg= 0.25 mL, IV Push, Q4H, PRN atorvastatin, 40 mg= 1 Tab, Oral, At Bedtime cloNIDine, 0.1 mg= 1 Tab, Oral, Q4H, PRN Dilaudid, 0.5 mg= 0.5 mL, IV Push, Q4H, PRN DuoNeb 0.5 mg-2.5 mg/3 mL inhalation solution, 3 mL, Nebulized Inhalation , Q6H, PRN hydrALAZINE, 10 mg= 0.5 mL, IV Push, Q6H, PRN insulin lispro 50 kg - 75 kg, 50 kg - 75 kg scale, SubCutaneous, AC and at Bedtime losartan, 100 mg= 2 Tab, Oral, Daily Normal Saline 1,000 mL, 1000 mL, IntraVENous [...] Sodium Chloride 0.9% intravenous solution 100 mL Lab Results Test Name Test Result Date/Time [...] Lymph # 1.52 x10(3)/uL 03/16/2021 11:38 EDT Elk % 5.1 % 03/16/2021 11:38 EDT Elk # 0.50 K/uL 03/16/2021 11:38 EDT Eos % 0.0 % 03/16/2021 11:38 EDT Eos # 0.00 x10(3)/uL 03/16/2021 11:38 EDT Baso % 0.3 % 03/16/2021 11:38 EDT Baso # 0.03 x10(3)/uL 03/16/2021 11:38 EDT Slide Review No 03/17/2021 03:42 EDT Slide Review No 03/16/2021 11:38 EDT IG# 0.06 x10(3)/uL (High) 03/16/2021 11:38 EDT IG% 0.60 % 03/16/2021 11:38 EDT PT 18.8 Second(s) (High) 03/17/2021 09:52 EDT PT 25.6 Second(s) (High) 03/16/2021 11:44 EDT INR 1.8 (High) 03/17/2021 09:52 EDT INR 2.6 (High) 03/16/2021 11:44 EDT PTT 34.1 Second(s) (High) 03/16/2021 11:44 EDT Urine Type. U CleanCatch 03/17/2021 04:10 EDT Urine Type. U CleanCatch 03/16/2021 14:09 EDT Urine Color YELLOW2 03/17/2021 04:10 EDT Urine Color YELLOW2 03/16/2021 14:09 EDT Urine Appearance CLEAR2 03/17/2021 04:10 EDT Urine Appearance CLEAR2 03/16/2021 14:09 EDT Urine Specific [place] 1.015 03/17/2021 04:10 EDT Urine Specific [place] 1.014 03/16/2021 14:09 EDT Urine pH Dipstick [...] SARS-CoV-2 (COVID19 PCR) NEGATIVE2 03/16/2021 15:20 EDT documented in this encounter Plan of Treatment Not on file documented as of this encounter Visit Diagnoses Not on filedocumented in this encounter Care Teams Appeals Manager Relationship Specialty Start Date End Date Jay Howell MD [address] [place] [phone] PCP - General Emergency Medicine 11/12/23 documented as of this encounter
--- OUTSIDE RECORDS SUMMARY | 2025-07-12 08:38 | XMS_ITS | Encounter Summary ---
Author Organization [employer] ([place], [place], [place], [place]) Address [address] [place] [address] Care Team Providers Care Lumber Stacker Operator Name Role Phone Jay Howell MD Primary Care Provider [phone] Encounter Details Date Type Department Care Team (Late st Contact Info) Description 03/19/2021 Transcribed Document [facility] [place] [address] [place] [address] ProviderJessie MD [address] [place] [address] Social History Tobacco Use Types Packs/Day Years Used Date Smoking Tobacco: Never Assessed Comments Unknown Sex and Gender Information Value Date Recorded Sex Assigned at Not on file Legal Sex Female 7:30 PM CDT Gender Identity Not on file Sexual Orientation Not on file documented as of this encounter Miscellaneous Notes * Cerner Conversion Note - Historical ProviderMD - 03/19/2021 4:05 PM CDT Discharge Summary, PT Entered On: 03/19/2021 16:08 EDT Performed On: 03/19/2021 16:05 EDT by JANENE CHENG PTA Discharge Summary Discharge Summary Provider Notified : Nursing, Physical Therapy Reason for Discharge : Discharge order Discharged to, Therapy : Outpatient rehabilitation JANENE CHENG PTA - 03/19/2021 16:05 EDT Discharge Summary Comment, PT : pt has discharge orders in from hospital to home with outpatient rehab, per evaluation on 03/18 - pt supervision for sit <> stand, pt ambulated 100' with supervision and no AD. PT has reviewed and agrees with note. KENDRA ROJAS, PT - 03/19/2021 17:49 EDT Shelter Goals Mobility/Bed Mobility LTG PT Grid Goal #1 Activity : Bed mobility Assist : Independent, modified Date to Meet : 04/01/2021 EDT Goal Status : Not met JANENE CHENG PTA - 03/19/2021 16:05 EDT Ambulation LTG Grid Goal #1 Device : Cane, single point Distance : 150' Assist : Independent, modified Date to Meet : 04/01/2021 EDT Goal Status : Not met Comment : or least resistive assistive device JANENE CHENG PTA - 03/19/2021 16:05 EDT Stairs LTG Grid Goal #1 Number of Steps : 4 Handrail(s) : One handrail Assist : Independent, modified Date to Meet : 04/01/2021 EDT Goal Status : Not met JANENE CHENG PTA - 03/19/2021 16:05 EDT documented in this encounter Plan of Treatment Not on file documented as of this encounter Visit Diagnoses Not on filedocumented in this encounter Care Teams Lumber Stacker Operator Relationship Specialty Start Date End Date Jay Howell MD [address] [place] [phone] PCP - General Emergency Medicine 11/12/23 documented as of this encounter
--- OUTSIDE RECORDS SUMMARY | 2025-07-12 08:38 | XMS_ITS | Encounter Summary ---
Author Organization [employer] ([place], [place], [place], [place]) Address [address] [address] Care Team Providers Care Electroplater Helper Name Role Phone Jay Howell MD Primary Care Provider [phone] Encounter Details Date Type Department Care Team (Late st Contact Info) Description 08/25/2020 Transcribed Document [facility] [place] [address] [place] [address] ProviderJessie MD [address] [place] [address] Social History Tobacco Use Types Packs/Day Years Used Date Smoking Tobacco: Never Assessed Comments Unknown Sex and Gender Information Value Date Recorded Sex Assigned at Not on file Legal Sex Female 7:30 PM CDT Gender Identity Not on file Sexual Orientation Not on file documented as of this encounter Miscellaneous Notes * Cerner Conversion Note - Jessie ProviderMD - 08/25/2020 5:06 PM [employer] Meds to Bed Enrollment Entered On: 08/26/2020 7:23 EST Performed On: 08/25/2020 17:06 EST by Elias Menendez PHARMACY TECH LEAD Meds to Bed Enrollment Patient Enrollment Decision: : Yes/enroll in meds to bed program Elias Menendez PHARMACY TECH LEAD - 08/26/2020 7:23 EST documented in this encounter Plan of Treatment Not on file documented as of this encounter Visit Diagnoses Not on filedocumented in this encounter Care Teams Electroplater Helper Relationship Specialty Start Date End Date Jay Howell MD [address] [place] [phone] PCP - General Emergency Medicine 11/12/23 documented as of this encounter
--- OUTSIDE RECORDS SUMMARY | 2025-07-12 08:38 | XMS_ITS | Encounter Summary ---
Author Organization [employer] ([place], [place], [place], [place]) Address [address] [place] [address] Care Team Providers Care Body Maker Name Role Phone Jay Howell MD Primary Care Provider [phone] Encounter Details Date Type Department Care Team (Late st Contact Info) Description 03/19/2021 Transcribed Document [facility] [place] [facility] [place] [address] ProviderJessie MD [address] [place], [place] [address] Social History Tobacco Use Types Packs/Day Years Used Date Smoking Tobacco: Never Assessed Comments Unknown Sex and Gender Information Value Date Recorded Sex Assigned at Not on file Legal Sex Female 7:30 PM CDT Gender Identity Not on file Sexual Orientation Not on file documented as of this encounter Miscellaneous Notes * [employer]ner Conversion Note - Historical ProviderMD - 03/19/2021 6:00 AM CDT Pain Assessment Entered On: 03/19/2021 6:59 EDT Performed On: 03/19/2021 6:28 EDT by Sarah Vivar Non Emp RN Intervention Information: oxyCODONE Performed by Sarah Vivar Non Emp RN on 03/19/2021 05:28:00 EDT oxyCODONE,5mg Oral Pain Assessment Pain Assessment : Follow-up assessment Pain Scale Goal : 5 Pain Scale Used : 0-10 Scale Sarah Vivar Non Emp RN - 03/19/2021 6:59 EDT Pain Scale Intensity : 3 Sarah Vivar P, Non Emp RN - 03/19/2021 6:59 EDT Image 4 - Images currently included in the form version of this document have not been included in the text rendition version of the form. Electronically signed by Sivan, [facility] Conversion Mosaic Tile Maker Cerner at 02/04/2023 2:02 PM CDT documented in this encounter Plan of Treatment Not on file documented as of this encounter Visit Diagnoses Not on filedocumented in this encounter Care Teams Body Maker Relationship Specialty Start Date End Date Jay Howell MD [address] [place] [phone] PCP - General Emergency Medicine 11/12/23 documented as of this encounter
--- OUTSIDE RECORDS SUMMARY | 2025-07-12 08:38 | XMS_ITS | Encounter Summary ---
Author Organization [employer] ([place], [place], [place], [place]) Address [address] [place] [address] Care Team Providers Care Otr Hazmat Company Driver Name Role Phone Jay Howell MD Primary Care Provider [phone] Encounter Details Date Type Department Care Team (Late st Contact Info) Description 03/17/2021 Transcribed Document [facility] [place] [facility] [place] [address] ProviderJessie MD [address] [place], [place] [phone] Social History Tobacco Use Types Packs/Day Years Used Date Smoking Tobacco: Never Assessed Comments Unknown Sex and Gender Information Value Date Recorded Sex Assigned at Not on file Legal Sex Female 7:30 PM CDT Gender Identity Not on file Sexual Orientation Not on file documented as of this encounter Miscellaneous Notes * [employer]ner Conversion Note - Historical ProviderMD - 03/17/2021 6:00 PM CDT Pain Assessment Entered On: 03/18/2021 1:15 EDT Performed On: 03/17/2021 22:21 EDT by Sarah Vivar Non Emp RN Intervention Information: oxyCODONE Performed by Sarah Vivar Non Emp RN on 03/17/2021 21:21:00 EDT oxyCODONE,5mg Oral Pain Assessment Pain Assessment : Follow-up assessment Pain Scale Goal : 5 Pain Scale Used : 0-10 Scale Sarah Vivar Non Emp RN - 03/18/2021 1:15 EDT Pain Scale Intensity : 3 Sarah Vivar P, Non Emp RN - 03/18/2021 1:15 EDT Image 4 - Images currently included in the form version of this document have not been included in the text rendition version of the form. Electronically signed by Sivan, [facility] Conversion Traffic Line Painter Cerner at 02/04/2023 2:00 PM CDT documented in this encounter Plan of Treatment Not on file documented as of this encounter Visit Diagnoses Not on filedocumented in this encounter Care Teams Otr Hazmat Company Driver Relationship Specialty Start Date End Date Jay Howell MD [address] [place] [phone] PCP - General Emergency Medicine 11/12/23 documented as of this encounter
--- OUTSIDE RECORDS SUMMARY | 2025-07-12 08:38 | XMS_ITS | Encounter Summary ---
Author Organization [employer] ([place], [place], [place], [place]) Address [address] [place] [address] Care Team Providers Care Transformer Inspector Name Role Phone Jay Howell MD Primary Care Provider [phone] Encounter Details Date Type Department Care Team (Late st Contact Info) Description 08/26/2020 Transcribed Document [facility] [place] [address] [place] [address] ProviderJessie MD [address] [place] [address] Social History Tobacco Use Types Packs/Day Years Used Date Smoking Tobacco: Never Assessed Comments Unknown Sex and Gender Information Value Date Recorded Sex Assigned at Not on file Legal Sex Female 7:30 PM CDT Gender Identity Not on file Sexual Orientation Not on file documented as of this encounter Miscellaneous Notes * [employer] Conversion Note - Historical ProviderMD - 08/26/2020 6:06 PM SOFTWARE MANAGER Spiritual Care Short Form Entered On: 08/26/2020 18:06 EST Performed On: 08/26/2020 18:06 EST by JEREMIAH HULL General Information, Spiritual Care Spiritual Care Referred by : Nurse Reason for Visit : Referral/Consult Gnosticism Preference : Synagogue JEREMIAH HULL - 08/26/2020 18:06 EST documented in this encounter Plan of Treatment Not on file documented as of this encounter Visit Diagnoses Not on filedocumented in this encounter Care Teams Transformer Inspector Relationship Specialty Start Date End Date Jay Howell MD [address] [place] [phone] PCP - General Emergency Medicine 11/12/23 documented as of this encounter
--- OUTSIDE RECORDS SUMMARY | 2025-07-12 08:38 | XMS_ITS | Encounter Summary ---
Author Organization [employer] ([place], [place], [place], [place]) Address [address] [place] [address] Care Team Providers Care Strapping Machine Tender Name Role Phone Jay Howell MD Primary Care Provider [phone] Encounter Details Date Type Department Care Team (Late st Contact Info) Description 08/25/2020 Transcribed Document [facility] [place] [address] [place] [address] ProviderJessie MD [address] [place] [address] Social History Tobacco Use Types Packs/Day Years Used Date Smoking Tobacco: Never Assessed Comments Unknown Sex and Gender Information Value Date Recorded Sex Assigned at Not on file Legal Sex Female 7:30 PM CDT Gender Identity Not on file Sexual Orientation Not on file documented as of this encounter Miscellaneous Notes * Cerner Conversion Note - Jessie Yuen MD - 08/25/2020 7:28 AM WOOD SETTER WOCN Inpatient Documentation Entered On: 08/25/2020 15:46 EST Performed On: 08/25/2020 15:46 EST by Sujata Mckee Rn-Enterostomal WOCN Admission Date : Admit Date 08/25/2020 05:[address] : Diagnosis (4) Medical screening exam General medical Contusion of left lower leg, initial encounter Cellulitis of unspecified part of limb Reason for WOCN Visit : Initial consult Admitting Diagnosis ST : Reason for Admission left leg hematoma, cellulitis WOCN Assessment Summary : Consult received, however upon review of the chart note vascular is following with plans for OR debridement tomorrow. Will defer to vascular surgery. If additional services required please reconsult. Sujata Mckee Rn-Enterostomal - 08/25/2020 15:46 EST documented in this encounter Plan of Treatment Not on file documented as of this encounter Visit Diagnoses Not on filedocumented in this encounter Care Teams Strapping Machine Tender Relationship Specialty Start Date End Date Jay Howell MD [address] [place] [phone] PCP - General Emergency Medicine 11/12/23 documented as of this encounter
--- OUTSIDE RECORDS SUMMARY | 2025-07-12 08:38 | XMS_ITS | Encounter Summary ---
Author Organization [employer] ([place], [place], [place], [place]) Address [address] [place] [address] Care Team Providers Care Javascript Programmer Name Role Phone Jay Howell MD Primary Care Provider [phone] Encounter Details Date Type Department Care Team (Late st Contact Info) Description 03/19/2021 Transcribed Document [facility] [place] [facility] [place] [address] ProviderJessie MD [address] [place], [place] [address] Social History Tobacco Use Types Packs/Day Years Used Date Smoking Tobacco: Never Assessed Comments Unknown Sex and Gender Information Value Date Recorded Sex Assigned at Not on file Legal Sex Female 7:30 PM CDT Gender Identity Not on file Sexual Orientation Not on file documented as of this encounter Miscellaneous Notes * [employer]ner Conversion Note - Historical ProviderMD - 03/19/2021 2:23 PM CDT Patient Education Materials Follows: Near-Syncope Near-syncope is when you suddenly get weak or dizzy, or you feel like you might pass out (faint). This may also be called presyncope. This is due to a lack of blood flow to the brain. During an episode of near-syncope, you may: ??? Feel dizzy, weak, or light-headed. ??? Feel sick to your stomach (nauseous). ??? See all white or all black. ??? See spots. ??? Have cold, clammy skin. This condition is caused by a sudden decrease in blood flow to the brain. This decrease can result from various causes, but most of those causes are not dangerous. However, near-syncope may be a sign of a serious medical problem, so it is important to seek medical care. Follow these instructions at home: Medicines ??? Take lvql-qjm-lvomtot and prescription medicines only as told by your doctor. ??? If you are taking blood pressure or heart medicine, get up slowly and spend many minutes getting ready to sit and then stand. This can help with dizziness. General instructions ??? Be aware of any changes in your symptoms. ??? Talk with your doctor about your symptoms. You may need to have testing to find the cause of your near-syncope. ??? If you start to feel like you might pass out, lie down right away. Raise (elevate) your feet above the level of your heart. Breathe deeply and steadily. Wait until all of the symptoms are gone. ??? Have someone stay with you until you feel stable. ??? Do not drive, use machinery, or play sports until your doctor says it is okay. ??? Drink enough fluid to keep your pee (urine) pale yellow. ??? Keep all follow-up visits as told by your doctor. This is important. Get help right away if you: ??? Have a seizure. ??? Have pain in your: ? Chest. ? Belly (abdomen). ? Back. ??? Faint once or more than once. ??? Have a very bad headache. ??? Are bleeding from your mouth or butt. ??? Have black or tarry poop (stool). ??? Have a very fast or uneven heartbeat (palpitations). ??? Are mixed up (confused). ??? Have trouble walking. ??? Are very weak. ??? Have trouble seeing. These symptoms may be an emergency. Do not wait to see if the symptoms will go away. Get medical help right away. Call your local emergency services (911 in the [place] Do not drive yourself to the hospital. Summary ??? Near-syncope is when you suddenly get weak or dizzy, or you feel like you might pass out (faint). ??? This condition is caused by a lack of blood flow to the brain. ??? Near-syncope may be a sign of a serious medical problem, so it is important to seek medical care. This information is not intended to replace advice given to you by your health care provider. Make sure you discuss any questions you have with your health care provider. Document Revised: 01/25/2020 Document Reviewed: 08/22/2019 [employer] Medical Patient Education ? 2019 [employer] Orthopedics Cast or Splint Care, Adult Casts and splints are supports that are worn to protect broken bones and other injuries. A cast or splint may hold a bone still and in the correct position while it heals. Casts and splints may also help ease pain, swelling, and muscle spasms. A cast is a hardened support that is usually made of fiberglass or plaster. It is custom-fit to the body and it offers more protection than a splint. It cannot be taken off and put back on. A splint is a type of soft support that is usually made from cloth and elastic. It can be adjusted or taken off as needed. You may need a cast or a splint if you: ??? Have a broken bone. ??? Have a soft-tissue injury. ??? Need to keep an injured body part from moving (keep it immobile) after surgery. How is this treated? If you have a cast: ??? Do not stick anything inside the cast to scratch your skin. Sticking something in the cast increases your risk of infection. ??? Check the skin around the cast every day. Tell your health care provider about any concerns. ??? You may put lotion on dry skin around the edges of the cast. Do not put lotion on the skin underneath the cast. ??? Keep the cast clean. ??? If the cast is not waterproof: ? Do not let it get wet. ? Cover it with a watertight covering when you take a bath or a shower. If you have a splint: ??? Wear it as told by your health care provider. Remove it only as told by your health care provider. ??? Loosen the splint if your fingers or toes tingle, become numb, or turn cold and blue. ??? Keep the splint clean. ??? If the splint is not waterproof: ? Do not let it get wet. ? Cover it with a watertight covering when you take a bath or a shower. Bathing ??? Do not take baths or swim until your health care provider approves. Ask your health care provider if you can take showers. You may only be allowed to take sponge baths for bathing. ??? If your cast or splint is not waterproof, cover it with a watertight covering when you take a bath or shower. Managing pain, stiffness, and swelling ??? Move your fingers or toes often to avoid stiffness and to lessen swelling. ??? Raise (elevate) the injured area above the level of your heart while sitting or lying down. Safety ??? Do not use the injured limb to support your body weight until your health care provider says that it is okay. ??? Use crutches or other assistive devices as told by your health care provider. General instructions ??? Do not put pressure on any part of the cast or splint until it is fully hardened. This may take several hours. ??? Return to your normal activities as told by your health care provider. Ask your health care provider what activities are safe for you. ??? Take ajsv-qbt-duocwst and prescription medicines only as told by your health care provider. ??? Keep all follow-up visits as told by your health care provider. This is important. Contact a health care provider if: ??? Your cast or splint gets damaged. ??? The skin around the cast gets red or raw. ??? The skin under the cast is extremely itchy or painful. ??? Your cast or splint feels very uncomfortable. ??? Your cast or splint is too tight or too loose. ??? Your cast becomes wet or it develops a soft spot or area. ??? You get an object stuck under your cast. Get help right away if: ??? Your pain is getting worse. ??? The injured area tingles, becomes numb, or turns cold and blue. ??? The part of your body above or below the cast is swollen and discolored. ??? You cannot feel or move your fingers or toes. ??? There is fluid leaking through the cast. ??? You have severe pain or pressure under the cast. ??? You have trouble breathing. ??? You have shortness of breath. ??? You have chest pain. This information is not intended to replace advice given to you by your health care provider. Make sure you discuss any questions you have with your health care provider. Document Revised: 07/31/2018 Document Reviewed: 03/26/2017 [employer] Medical Patient Education ? 2020 [employer]. documented in this encounter Plan of Treatment Not on file documented as of this encounter Visit Diagnoses Not on filedocumented in this encounter Care Teams Javascript Programmer Relationship Specialty Start Date End Date Jay Howell MD [address] [place] [phone] PCP - General Emergency Medicine 11/12/23 documented as of this encounter
--- OUTSIDE RECORDS SUMMARY | 2025-07-12 08:38 | XMS_ITS | Encounter Summary ---
Author Organization [employer] ([place], [place], [place], [place]) Address [address] [place] [address] Care Team Providers Care Intelligence Intern Name Role Phone Jay Howell MD Primary Care Provider [phone] Encounter Details Date Type Department Care Team (Late st Contact Info) Description 03/18/2021 Transcribed Document [facility] [place] Family Medicine [address] [place] [address] ProviderJessie MD [address] [place] [id number] Social History Tobacco Use Types Packs/Day Years Used Date Smoking Tobacco: Never Assessed Comments Unknown Sex and Gender Information Value Date Recorded Sex Assigned at Not on file Legal Sex Female 7:30 PM CDT Gender Identity Not on file Sexual Orientation Not on file documented as of this encounter Miscellaneous Notes * Cerner Conversion Note - Historical ProviderMD - 03/18/2021 1:27 PM CDT Event Note Entered On: 03/18/2021 13:28 EDT Performed On: 03/18/2021 13:27 EDT by EVA RICHARDSON RN Event Note Event Date/Time : 03/18/2021 13:27 EDT Event Location : Assigned room Description of Event : Patient can go unmonitored to MRI and CT. EVA RICHARDSON RN - 03/18/2021 13:27 EDT Electronically signed by Sivan Cox [place] Conversion Supervisor Screen Printing Cerner at 02/04/2023 2:02 PM CDT documented in this encounter Plan of Treatment Not on file documented as of this encounter Visit Diagnoses Not on filedocumented in this encounter Care Teams Intelligence Intern Relationship Specialty Start Date End Date Jay Howell MD [address] [place] [phone] PCP - General Emergency Medicine 11/12/23 documented as of this encounter
--- OUTSIDE RECORDS SUMMARY | 2025-07-12 08:38 | XMS_ITS | Encounter Summary ---
Author Organization [employer] ([place], [place], [place], [place]) Address [address] [place] [address] Care Team Providers Care Handyman Name Role Phone Jay Howell MD Primary Care Provider [phone] Encounter Details Date Type Department Care Team (Late st Contact Info) Description 08/25/2020 Transcribed Document [facility] [place] Family Medicine [address] [place] [address] ProviderJessie MD [address] [place] [address] Social History Tobacco Use Types Packs/Day Years Used Date Smoking Tobacco: Never Assessed Comments Unknown Sex and Gender Information Value Date Recorded Sex Assigned at Not on file Legal Sex Female 7:30 PM CDT Gender Identity Not on file Sexual Orientation Not on file documented as of this encounter Miscellaneous Notes * [employer]ner Conversion Note - Jessie ProviderMD - 08/25/2020 8:09 AM CIVIL ENGINEERING MANAGER ED Event Note Entered On: 08/25/2020 8:11 EST Performed On: 08/25/2020 8:09 EST by TRACIE ACUNA RN ED Event Note ED Event Date/Time : 08/25/2020 8:09 EST ED Event Location : Assigned room ED Description of Event : Pt awake and was given Zosyn IV per order. Pt has to have a bed change to Tele. TRACIE ACUNA RN - 08/25/2020 8:09 EST Electronically signed by Sivan [facility] Conversion It Data Architect Cerner at 02/04/2023 2:06 PM CDT documented in this encounter Plan of Treatment Not on file documented as of this encounter Visit Diagnoses Not on filedocumented in this encounter Care Teams Handyman Relationship Specialty Start Date End Date Jay Howell MD [address] [place] [phone] PCP - General Emergency Medicine 11/12/23 documented as of this encounter
--- OUTSIDE RECORDS SUMMARY | 2025-07-12 08:38 | XMS_ITS | Encounter Summary ---
Author Organization [employer] ([place], [place], [place], [place]) Address [address] [place] [address] Care Team Providers Care Duplicating Machine Mechanic Name Role Phone Jay Howell MD Primary Care Provider [phone] Encounter Details Date Type Department Care Team (Late st Contact Info) Description 08/25/2020 Transcribed Document [facility] [place] Family Medicine [address] [place] [address] ProviderJessie MD [address] [place] [address] Social History Tobacco Use Types Packs/Day Years Used Date Smoking Tobacco: Never Assessed Comments Unknown Sex and Gender Information Value Date Recorded Sex Assigned at Not on file Legal Sex Female 7:30 PM CDT Gender Identity Not on file Sexual Orientation Not on file documented as of this encounter Miscellaneous Notes * Cerner Conversion Note - Jessie Yuen MD - 08/25/2020 7:20 AM NAVIGATION OFFICER Patient: SKYLER MONTOYA Age: 79 years Sex: Female : 1940 Associated Diagnoses: None Author: BETH DAVALOS MD-[facility] DATE OF SERVICE: 08/25/2020 Purpose of Encounter: Advanced care planning in light of [Severe CAD , Afib, and repeated ER visits ] Parties in attendance: Patient, at bedside Decisional Capacity: [Yes] Diagnoses: Cellulitis of leg 08/25/2020 L03.119 ICD-10-CM Hematoma of left lower leg 08/25/2020 S80.12XA ICD-10-CM Patients Medical Story: Ms. Montoya is an 79-year-old female with known history of coronary artery disease, status post CABG; history of multiple stent placements. The patient presented to [facility] ER after recent fall with hematoma required [...] when the left leg began to throb. Goals of Care Determinations: Patient wishes to focus on quality of life and medical management of her underlying disease. She has very good insight into her chronic medical problems. She has discussed her wishes with her . She has a strong alevism treasure. She alex like to stay Full code but no prolonged life support Plan: Full code Code Status: At this time patient wishes to be Full code Code Status Start: 08/25/20 5:51:00 EST, Full Code, Continuous Order Time Spent with Patient: [16 ] minutes documented in this encounter Plan of Treatment Not on file documented as of this encounter Visit Diagnoses Not on filedocumented in this encounter Care Teams Duplicating Machine Mechanic Relationship Specialty Start Date End Date Jay Howell MD [address] [place] [phone] PCP - General Emergency Medicine 11/12/23 documented as of this encounter
--- OUTSIDE RECORDS SUMMARY | 2025-07-12 08:38 | XMS_ITS | Encounter Summary ---
Author Organization [employer] ([place], [place], [place], [place]) Address [address] [place] [address] Care Team Providers Care Chemical Laboratory Chief Name Role Phone Jay Howell MD Primary Care Provider [phone] Encounter Details Date Type Department Care Team (Late st Contact Info) Description 08/26/2020 Transcribed Document [facility] Family Medicine [address] [place] [address] ProviderJessie MD [address] [place] [address] Social History Tobacco Use Types Packs/Day Years Used Date Smoking Tobacco: Never Assessed Comments Unknown Sex and Gender Information Value Date Recorded Sex Assigned at Not on file Legal Sex Female 7:30 PM CDT Gender Identity Not on file Sexual Orientation Not on file documented as of this encounter Miscellaneous Notes * [employer] Conversion Note - Historical ProviderMD - 08/26/2020 10:39 AM MEDIA ACCOUNT EXECUTIVE UM Authorization Entered On: 08/26/2020 10:39 EST Performed On: 08/26/2020 10:39 EST by MARILYNN RAMÍREZ, RN-Utilization Review Primary Insurance Authorization Authorization and Policy Numbers : Insurance 1 Health Plan: MEDICARE Policy Number: [id number] Authorization Number: Insurance 2 Health Plan: A[employer] N Policy Number: [id number] Authorization Number: Insurance Primary Name : MEDICARE Policy Number: [id number] Authorized Service Begin Date-Primary : 08/25/2020 EST Historical Authorization Comments-Primary : No Authorization Comments Found MARILYNN RAMÍREZ, RN-Utilization Review - 08/26/2020 10:39 EST documented in this encounter Plan of Treatment Not on file documented as of this encounter Visit Diagnoses Not on filedocumented in this encounter Care Teams Chemical Laboratory Chief Relationship Specialty Start Date End Date Jay Howell MD [address] [place] [phone] PCP - General Emergency Medicine 11/12/23 documented as of this encounter
--- OUTSIDE RECORDS SUMMARY | 2025-07-12 08:38 | XMS_ITS | Encounter Summary ---
Author Organization [employer] ([place], [place], [place], [place]) Address [address] [place] [address] Care Team Providers Care Channel Layer Name Role Phone Jay Howell MD Primary Care Provider [phone] Encounter Details Date Type Department Care Team (Late st Contact Info) Description 08/25/2020 Transcribed Document [facility] [place] Family Medicine [address] [place] [address] ProviderJessie MD [address] [place] [address] Social History Tobacco Use Types Packs/Day Years Used Date Smoking Tobacco: Never Assessed Comments Unknown Sex and Gender Information Value Date Recorded Sex Assigned at Not on file Legal Sex Female 7:30 PM CDT Gender Identity Not on file Sexual Orientation Not on file documented as of this encounter Miscellaneous Notes * [employer] Conversion Note - Historical ProviderMD - 08/25/2020 1:02 PM FORM TAMPER OPERATOR Patient: SKYLER MONTOYA Age: 79 years Sex: Female : 1940 Associated Diagnoses: None Author: KAREN PUTNAM PA-C stopped by to see patient, admitted after midnight problem list: LLE cellulitis with hematoma -xr negative for fracture -ID consulted, IV abx -BC x 2 -wound care -SP ID as outpt and failed PO abx therapy Lactic Acidosis, resolved -felt related to above Left leg hematoma -VS consulted -wound care -hold ASA and resume per VS Uncontrolled HTN -resume home meds -consider titrating up if remains elevated -prn anti-htn meds Low back pain with LLE radicular sx -hx of multiple back surgeries ( 1979, 1997--Dr. Kelsey) -radiculopathy new since fall, no saddle parasthesia/numbness/tingling/incontinence -MRI pending diabetes with hyperglycemia -check hgba1c -ssi Hx of Atrial fibrillation -chronic coumadin -follow PT, INR -coumadin on hold until VS, ? 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 Avtar Moeller Electronically signed by Sivan, [facility] Conversion Stunt Performer Cerner at 02/04/2023 2:06 PM CDT documented in this encounter Plan of Treatment Not on file documented as of this encounter Visit Diagnoses Not on filedocumented in this encounter Care Teams Channel Layer Relationship Specialty Start Date End Date Jay Howell MD [address] [place] [phone] PCP - General Emergency Medicine 11/12/23 documented as of this encounter
--- OUTSIDE RECORDS SUMMARY | 2025-07-12 08:38 | XMS_ITS | Encounter Summary ---
Author Organization [employer] ([place], [place], [place], [place]) Address [address] [place] [address] Care Team Providers Care Medical Affairs Director Name Role Phone Jay Howell MD Primary Care Provider [phone] Encounter Details Date Type Department Care Team (Late st Contact Info) Description 08/25/2020 Transcribed Document [facility] [place] [facility] [place] [address] ProviderJessie MD [address] [place] [address] Social History Tobacco Use Types Packs/Day Years Used Date Smoking Tobacco: Never Assessed Comments Unknown Sex and Gender Information Value Date Recorded Sex Assigned at Not on file Legal Sex Female 7:30 PM CDT Gender Identity Not on file Sexual Orientation Not on file documented as of this encounter Miscellaneous Notes * [employer] Conversion Note - Historical ProviderMD - 08/25/2020 10:42 AM MESSAGE CLERK Patient: SKYLER MONTOYA Age: 79 years Sex: Female : 1940 Associated Diagnoses: None Author: KAVITHA HIDALGO MD-INF ID CONSULT DICTATED Electronically signed by Gayle Finnegan Conversion Mechanical Maintenance Instructor Cerner at 02/04/2023 2:09 PM CDT documented in this encounter Plan of Treatment Not on file documented as of this encounter Visit Diagnoses Not on filedocumented in this encounter Care Teams Medical Affairs Director Relationship Specialty Start Date End Date Jay Howell MD [address] [place] [phone] PCP - General Emergency Medicine 11/12/23 documented as of this encounter
--- OUTSIDE RECORDS SUMMARY | 2025-07-12 08:38 | XMS_ITS | Encounter Summary ---
Author Organization [employer] ([place], [place], [place], [place]) Address [address] [place] [address] Care Team Providers Care Air Bag Buffer Name Role Phone Jay Howell MD Primary Care Provider [phone] Encounter Details Date Type Department Care Team (Late st Contact Info) Description 03/17/2021 Transcribed Document [facility] [place] Family Medicine [address] [place] [id number] ProviderJessie MD [address] [place] [address] Social History Tobacco Use Types Packs/Day Years [...] Consult Phone Call Documentation Entered On: 03/17/2021 8:58 EDT Performed On: 03/17/2021 9:00 EDT by SAMUEL JUDD Phone Call for Consults Consult Phone Call/Page Attempt : First call Physician Requested for Consult : BHARTI MAGAÑA MD-ANDRES Provider Service Notified Name : Neurology SAMUEL JUDD - 03/17/2021 8:57 EDT Electronically signed by Gayle Finnegan Conversion Transmitter Engineer In Charge Cerner at 02/04/2023 2:00 PM CDT documented in this encounter Plan of Treatment Not on file documented as of this encounter Visit Diagnoses Not on filedocumented in this encounter Care Teams Air Bag Buffer Relationship Specialty Start Date End Date Jay Howell MD [address] [place] [phone] PCP - General Emergency Medicine 11/12/23 documented as of this encounter
--- OUTSIDE RECORDS SUMMARY | 2025-07-12 08:38 | XMS_ITS | Encounter Summary ---
Author Organization [employer] ([place], [place], [place], [place]) Address [address] [place] [address] Care Team Providers Care Vehicle Operator Technician Name Role Phone Jay Howell MD Primary Care Provider [phone] Encounter Details Date Type Department Care Team (Late st Contact Info) Description 03/18/2021 Transcribed Document [facility] [place] Family Medicine [address] [place] [id number] ProviderJessie MD [address] [place] [address] [id number] Social History Tobacco Use Types Packs/Day Years Used Date Smoking Tobacco: Never Assessed Comments Unknown Sex and Gender Information Value Date Recorded Sex Assigned at Not on file Legal Sex Female 7:30 PM CDT Gender Identity Not on file Sexual Orientation Not on file documented as of this encounter Miscellaneous Notes * Cerner Conversion Note - Jessie ProviderMD - 03/18/2021 3:01 PM CDT On Going Discharge Planning Entered On: 03/18/2021 15:02 EDT Performed On: 03/18/2021 15:01 EDT by Krystina Giang V, Paintings Conservator Manager Site Care Management Progress Note Discharge Arrangements : Patient Post-Acute Information Patient Name: SKYLER MONTOYA Gender: Female : [birth year] Age: 80 Years No Post-Acute Placement(s) Listed No Post-Acute Service(s) Listed No [place] Referral(s) Listed Discharge Options Discussed with Patient : Discharge transportation, DME, Home Health, Short term rehabilitation Barriers to Discharge Identified : Clinical Condition of Patient Barriers to Discharge Unresolved : Clinical Condition of Patient Is the Patient Meeting Medical Necessity : Yes Physician Agreeable to Move Forward with D/C Plan? : Yes Did you Attend Multidisciplinary Rounds? : Yes Krystina Giang V Paintings Conservator [facility] [place]18/2021 15:01 EDT Narrative Progress Note Narrative Progress Note : HD#0, ELOS-not recorded. RRS=Moderate, BOOST-5 Cardiology service saw patient and ordered a CTA of chest, head and neck to evaluate the possibility of subclavian stenosis and to evaluate the extracranial and intracranial arterial system. PT completed eval and is recommendng outpatient PT for balance issues. CM to follow dc plan Krystina Giang V Paintings Conservator [facility] [place] 03/18/2021 15:01 EDT Electronically signed by Sivan [facility] Conversion Excel Vba Developer Cerner at 02/04/2023 1:55 PM CDT documented in this encounter Plan of Treatment Not on file documented as of this encounter Visit Diagnoses Not on filedocumented in this encounter Care Teams Vehicle Operator Technician Relationship Specialty Start Date End Date Jay Howell MD [address] [place] [phone] PCP - General Emergency Medicine 11/12/23 documented as of this encounter
--- OUTSIDE RECORDS SUMMARY | 2025-07-12 08:38 | XMS_ITS | Encounter Summary ---
Author Organization [employer] ([place], [place], [place], [place]) Address [address] [place] [address] Care Team Providers Care Oil Mixer Name Role Phone Jay Howell MD Primary Care Provider [phone] Encounter Details Date Type Department Care Team (Late st Contact Info) Description 03/17/2021 Transcribed Document [facility] [place] [facility] [place] [address] ProviderJessie MD [address] [place] [address] [phone] Social History Tobacco Use Types Packs/Day Years Used Date Smoking Tobacco: Never Assessed Comments Unknown Sex and Gender Information Value Date Recorded Sex Assigned at Not on file Legal Sex Female 7:30 PM CDT Gender Identity Not on file Sexual Orientation Not on file documented as of this encounter Miscellaneous Notes * Cerner Conversion Note - Historical ProviderMD - 03/17/2021 11:35 AM CDT Pain Assessment Entered On: 03/17/2021 14:06 EDT Performed On: 03/17/2021 12:55 EDT by Skip Sotelo RN Intervention Information: oxyCODONE Performed by Skip Sotelo RN on 03/17/2021 11:55:00 EDT oxyCODONE,5mg Oral Pain Assessment Pain Assessment : Follow-up assessment Pain Scale Goal : 5 Pain Scale Used : 0-10 Scale Skip Sotelo RN - 03/17/2021 14:06 EDT Pain Scale Intensity : 4 Skip Sotelo RN - 03/17/2021 14:06 EDT Image 4 - Images currently included in the form version of this document have not been included in the text rendition version of the form. documented in this encounter Plan of Treatment Not on file documented as of this encounter Visit Diagnoses Not on filedocumented in this encounter Care Teams Oil Mixer Relationship Specialty Start Date End Date Jay Howell MD [address] [place] [phone] PCP - General Emergency Medicine 11/12/23 documented as of this encounter
--- OUTSIDE RECORDS SUMMARY | 2025-07-12 08:38 | XMS_ITS | Encounter Summary ---
Author Organization [employer] ([place], [place], [place], [place]) Address [address] [place] [address] Care Team Providers Care Injection Molding Machine Operator Name Role Phone Jay Howell MD Primary Care Provider [phone] Encounter Details Date Type Department Care Team (Late st Contact Info) Description 03/17/2021 Transcribed Document [facility] [place] Medicine [address] [place] [address] ProviderJessie MD [address] [place] [address] Social History Tobacco Use Types Packs/Day Years Used Date Smoking Tobacco: Never Assessed Comments Unknown Sex and Gender Information Value Date Recorded Sex Assigned at Not on file Legal Sex Female 7:30 PM CDT Gender Identity Not on file Sexual Orientation Not on file documented as of this encounter Miscellaneous Notes * Cerner Conversion Note - Historical ProviderMD - 03/17/2021 12:48 PM CDT UM Authorization Entered On: 03/17/2021 12:49 EDT Performed On: 03/17/2021 12:48 EDT by MARILYNN RAMÍREZ, RN-Utilization Review Primary Insurance Authorization Authorization and Policy Numbers : Insurance 1 Health Plan: MEDICARE Policy Number: [id number] Authorization Number: Insurance 2 Health Plan: A[employer] N Policy Number: [id number] Authorization Number: Insurance Primary Name : MEDICARE Policy Number: [id number] Authorized Service Begin Date-Primary : 03/16/2021 EDT Historical Authorization Comments-Primary : No Authorization Comments Found MARILYNN RAMÍREZ, RN-Utilization Review - 03/17/2021 12:48 EDT documented in this encounter Plan of Treatment Not on file documented as of this encounter Visit Diagnoses Not on filedocumented in this encounter Care Teams Injection Molding Machine Operator Relationship Specialty Start Date End Date Jay Howell MD [address] [place] [phone] PCP - General Emergency Medicine 11/12/23 documented as of this encounter
--- OUTSIDE RECORDS SUMMARY | 2025-07-12 08:38 | XMS_ITS | Encounter Summary ---
Author Organization [employer] ([place], [place], [place], [place]) Address [address] [place] [address] Care Team Providers Care Construction Director Name Role Phone Jay Howell MD Primary Care Provider [phone] Encounter Details Date Type Department Care Team (Late st Contact Info) Description 03/18/2021 Transcribed Document [facility] Cardiology [address] [place], [place] [phone] Jorje Bení[place] [address] [place] [address] [address] [place] [address] Social History Tobacco Use Types Packs/Day Years Used Date Smoking Tobacco: Never Assessed Comments Unknown Sex and Gender Information Value Date Recorded Sex Assigned at Not on file Legal Sex Female 7:30 PM CDT Gender Identity Not on file Sexual Orientation Not on file documented as of this encounter Miscellaneous Notes * Cerner Conversion Note - Jorje Benítez MD - 03/18/2021 8:13 AM EDT Patient: SKYLER MONTOYA Age: 80 years Sex: Female : 1940 Associated Diagnoses: None Author: JORJE BENÍTEZ MD-CAR Basic Information Medical Radiation Dosimetrist: Dr. Adry Dumas Subjective NAD Health Status Current medications: Home Medications (15) Active atorvastatin 80 mg [...] Vitamins oral tablet 1 Tab, Oral, Daily Tyrone 7.5 mg-325 mg oral tablet 1 Tab, [...] = 1 Tab, PRN, Oral, At Bedtime , Medications (18) Active Scheduled: (9) atorvastatin 40 mg tab 40 mg 1 Tab, Oral, At Bedtime carvedilol 6.25 mg tab 6.25 mg 1 Tab, Oral, BID famotidine 20 mg tab 20 mg 1 Tab, Oral, Daily insulin lispro 1 unit/0.01 mL inj 50 kg - 75 kg scale, SubCutaneous, AC and at Bedtime losartan 50 mg tab 100 mg 2 Tab, Oral, Daily oxyCODONE 5 mg tab 5 mg 1 Tab, Oral, Q6HInt piperacillin-tazobactam + NaCl 0.9% 100 mL 3.375 Gram, IV Piggyback, Q6H piperacillin-tazobactam + NaCl 0.9% 100 mL 4.5 Gram, IV Piggyback, 1-Time warfarin 3 mg tab 3 mg 1 Tab, Oral, Daily Continuous: (1) NaCl 0.9% 1,000 mL 1,000 mL, IntraVENous, 125 mL/Hr PRN: (8) acetaminophen 325 mg tab 650 mg 2 Tab, Oral, Q4H albuterol-ipratropium inh 3 mL 3 mL, Nebulized Inhalation, Q6H cloNIDine 0.1 mg tab 0.1 mg 1 Tab, Oral, Q4H hydrALAZINE 20 mg/1 mL inj 10 mg 0.5 mL, IV Push, Q6H HYDROmorphone 1 mg/1 mL inj 0.5 mg 0.5 mL, IV Push, Q4H LORazepam 2 mg/mL inj 0.5 mg 0.25 mL, IV Push, Q4H ondansetron 4 mg/2 mL inj 4 mg 2 mL, IV Push, Q4H promethazine 25 mg/1 mL inj 6.25 mg 0.25 mL, IntraVENous, Q6H Problem list: Active Problems (20) Apnea, sleep Arthritis Atrial fibrillation with RVR Blood clot Cataract Chest pain Chronic anticoagulation Clotting disorder COPD Coronary artery disease Diabetes mellitus Emphysema GERD - Gastro-esophageal reflux disease Glaucoma High blood pressure History of obstructive sleep apnea Hx of pulmonary embolus Hyperlipidemia Multiple renal cysts Stented coronary artery Objective Intake and Output 24 hour intake: Total 825 ml 24 hour output: Total 150 ml VS/Measurements Vitals Signs (last 24 hrs) Last Charted Minimum Maximum Temp 99.2 (MAR 18 05:10) 98.6 (MAR 17 17:24) 99.1 (MAR 17 15:55) Mon HR 70 (MAR 18 05:10) 69 (MAR 17 15:55) 80 (MAR 17 08:49) Resp Rate 18 (MAR 18 05:10) 14 (MAR 17 17:24) 18 (MAR 17 08:49) SBP H 162 (MAR 18 05:10) H 159 (MAR 18 01:14) H 170 (MAR 17 07:37) DBP L 52 (MAR 18 05:10) L 49 (MAR 18 01:14) 63 (MAR 17 07:37) MAP 81 (MAR 18 05:10) 77 (MAR 18 01:14) 88 (MAR 17 07:37) SpO2 95 (MAR 18 05:10) L 89 (MAR 18:14) 97 (MAR 17 17:24) General: Alert and oriented, No acute distress. Eye: Pupils are equal, round and reactive to light, Normal conjunctiva, Vision unchanged. HENT: Normocephalic. Neck: Supple, Non-tender, No carotid bruit, No jugular venous distention. Respiratory: Lungs are clear to auscultation, Respirations are non-labored, Breath sounds are equal, Symmetrical chest wall expansion. Support: Oxygen ( 2 L/min ), Oxygen delivery method ( Nasal cannula ). Cardiovascular: Normal rate, Regular rhythm, No murmur, Good pulses equal in all extremities. Capillary refill: Upper extremity, Less than 2 seconds. Gastrointestinal: Soft, Non-distended, Normal bowel sounds. Musculoskeletal: Normal range of motion, Normal strength, R UE splint in place.. Integumentary: Warm, Dry. Neurologic: Alert, Oriented. Psychiatric: Cooperative, Appropriate mood & affect. Results Review MAR 18 05:19 136 108 11 / H 121 L 3.3 22 L 0.40 \ MAR 18 05:19 \ L 9.7 / 6.6 L 106 / L 30.0 \ Cardiac Markers (Current Encounter/Past 24 Hours) ProBNP 576 pg/mL [place] 03/17/2021 04:45 Radiology Results (Last 48 hours) [id number] -- 03/17/2021 13:59 CR Hip Uni Comp Min 2 Vws [...] personally viewed, interpreted and dictated the examination. Ihstephanie read and agree with the above final [...] agree with the above final transcribed report. Impressions Summary RIGHT: 50-69% stenosis of the internal carotid artery. ECA >50% Stenosis. Normal antegrade vertebral flow. No evidence of subclavian steal. LEFT: Subclavian artery stenosis is greater than 50%. 50-69% stenosis of the internal carotid artery. ECA >50% Stenosis. Normal antegrade vertebral flow. No evidence of subclavian steal Impression and Plan IMPRESSION: * Syncope with [...] DVT/pulmonary embolism * Hx seizure disorder PLAN; 03/18/2021 CTA Chest with contrast to assess SC stenosis. Low threshold for intervention given syncope and h/o CABG. Current cv rx appropriate Plan for outpatient follow up in 4 weeks 03/17/2021 EKG Echocardiogram Carotid artery duplex Gentle IV hydration Replace electrolytes Restart losartan /coreg / statin Further recommendations pending response to above documented in this encounter Plan of Treatment Not on file documented as of this encounter Visit Diagnoses Not on filedocumented in this encounter Care Teams Construction Director Relationship Specialty Start Date End Date Jay Howell MD [address] [place] [phone] PCP - General Emergency Medicine 11/12/23 documented as of this encounter
--- OUTSIDE RECORDS SUMMARY | 2025-07-12 08:38 | XMS_ITS | Encounter Summary ---
Author Organization [employer] ([place], [place], [place], [place]) Address [address] [place] [address] Care Team Providers Care Director Of Materials Name Role Phone Jay Howell MD Primary Care Provider [phone] Encounter Details Date Type Department Care Team (Late st Contact Info) Description 03/18/2021 Transcribed Document [facility] [place] Medicine [address] [place] [id number] ProviderJessie MD [address] [place] [address] [phone] Social History Tobacco Use Types Packs/Day Years Used Date Smoking Tobacco: Never Assessed Comments Unknown Sex and Gender Information Value Date Recorded Sex Assigned at Not on file Legal Sex Female 7:30 PM CDT Gender Identity Not on file Sexual Orientation Not on file documented as of this encounter Miscellaneous Notes * Cerner Conversion Note - Historical ProviderMD - 03/18/2021 10:54 AM CDT Patient: SKYLER MONOTYA Age: 80 Years Sex: Female : 1940 Subjective Patient currently sitting on the side of the bed. She states that she has done some walking today and has not had any episodes of syncope , dizziness or vomiting. Cardiology service has seen her and has ordered a CTA of chest , head and neck to evaluate the possibility of subclavian stenosis , and to evaluate the extracranial and intracranial arterial system. Review of Systems Cardiac - she states that she had some chest pain several weeks back . Objective Vitals & Measurements T: 37.3 ??C TMIN: 37 ??C TMAX: 37.3 ??C HR: 68(Monitored) RR: 16 BP: 159/53 SpO2: 91% Physical Exam EOMI Speech - fluent Right arm cannot be fully evaluated because of cast around right arm. Left arm - normal strength Normal finger to nose on the left side. TESTS Carotid Ultrasound - RIGHT: 50-69% stenosis of the internal carotid artery. ECA >50% Stenosis. Normal antegrade vertebral flow. No evidence of subclavian steal. LEFT: Subclavian artery stenosis is greater than 50%. 50-69% stenosis of the internal carotid artery. ECA >50% Stenosis. Normal antegrade vertebral flow. No evidence of subclavian steal Echocardiogram : Impression: Normal left ventricular wall thickness. Visually estimated ejection fraction 60% +/- 5%. Normal left ventricular systolic function. No hemodynamically significant valvular heart disease. No masses or thrombi are seen. CTA of chest , head and neck are pending. Assessment/Plan Skyler Montoya is an 80-year-old with multiple medical problems including diabetes, coronary artery disease, atrial fibrillation, and a hip replacement, who had an episode of syncope on March 16 . The patient is on long standing Coumadin. This episode of syncope had been preceded by a feeling of dizziness and nausea . A carotid ultrasound suggests left subclavian stenosis and bilateral 50 -69% stenosis. The differential could include one or a [...] will need to follow up on that. I have asked nurse to check orthostatics today. 2. I agree with CTA of chest, head and neck. 3. I am ordering a cranial MRI. 4. At discharge, she should follow up with an outpatient neurologist and not drive until released by physician. I have told patient that the dye used for CTAs can rarely cause damage to the kidneys and allergic reactions. The patient understands and agrees to a CTA . I have spent over 25 minutes on this case today . Over half that time was spent reviewing chart and counseling patient. Medications Inpatient Ativan, 0.5 mg= 0.25 mL, IV Push, Q4H, PRN atorvastatin, 40 mg= 1 Tab, Oral, At Bedtime carvedilol, 6.25 mg= 1 Tab, Oral, BID cloNIDine, 0.1 mg= 1 Tab, Oral, Q4H, PRN Coumadin, 3 mg= 1 Tab, Oral, Daily Dilaudid, 0.5 mg= 0.5 mL, IV Push, [...] Normal Saline 1,000 mL, 1000 mL, IntraVENous Normal Saline Bolus, 500 mL, IV Piggyback, 1-Time oxyCODONE, 5 mg= 1 Tab, Oral, Q6HInt Phenergan, 6.25 mg= 0.25 mL, IntraVENous, Q6H, PRN potassium chloride 20 mEq oral tablet, extended release, 20 mEq= 1 Tab, Oral, Q4H Protonix, 40 mg= 1 Tab, Oral, Daily Tylenol, 650 mg= 2 Tab, Oral, Q4H, PRN Zofran, 4 mg= 2 mL, IV Push, Q4H, PRN Zosyn + Sodium Chloride 0.9% intravenous solution 100 mL Zosyn + Sodium Chloride 0.9% intravenous solution 100 mL documented in this encounter Plan of Treatment Not on file documented as of this encounter Visit Diagnoses Not on filedocumented in this encounter Care Teams Director Of Materials Relationship Specialty Start Date End Date Jay Howell MD [address] [place] [phone] PCP - General Emergency Medicine 11/12/23 documented as of this encounter
--- OUTSIDE RECORDS SUMMARY | 2025-07-12 08:38 | XMS_ITS | Encounter Summary ---
Author Organization [employer] ([place], [place], [place], [place]) Address [address] [place] [address] Care Team Providers Care Tube Trailer Filler Name Role Phone Jay Howell MD Primary Care Provider [phone] Encounter Details Date Type Department Care Team (Late st Contact Info) Description 08/25/2020 Transcribed Document [facility] [place] Medicine [address] [place] [address] ProviderJessie MD [address] [place] [address] Social History Tobacco Use Types Packs/Day Years Used Date Smoking Tobacco: Never Assessed Comments Unknown Sex and Gender Information Value Date Recorded Sex Assigned at Not on file Legal Sex Female 7:30 PM CDT Gender Identity Not on file Sexual Orientation Not on file documented as of this encounter Miscellaneous Notes * Cerner Conversion Note - Historical ProviderMD - 08/25/2020 6:14 PM CREDIT BALANCE SPECIALIST Admission History, Adult Entered On: 08/25/2020 18:21 EST Performed On: 08/25/2020 18:14 EST by ROMEO PADRON RN Advance Directive Patient has Advance Directive *Q : No, patient refuses Advance Directive information ROMEO PADRON RN - 08/25/2020 18:14 EST Anesthesia/Transfusion History Family History of Anesthesia Reaction : Prior transfusion reaction Type of Transfusion Reaction : Hemolytic reaction Blood Transfusion Acceptable to Patient : Yes Transfusion History : Prior anesthesia without reaction Family History of Anesthesia Reaction : None ROMEO PADRON RN - 08/25/2020 18:14 EST Education Topics, Admission Orientation DCP GENERIC CODE Assessment/Vital Signs : Verbalizes understanding Bed Control : Verbalizes understanding Call Light : Verbalizes understanding Diet/Room Service : Verbalizes understanding Fall Prevention : Verbalizes understanding Patient Rights/Responsibilities : Verbalizes understanding Patient Safety : Verbalizes understanding Rounding : Verbalizes understanding Television/Phone : Verbalizes understanding Visiting Policy : Verbalizes understanding ROMEO PADRON RN - 08/25/2020 18:14 EST Functional Assessment Living Situation : Home Patient Lives With : Spouse Persons Assisting Patient at Home : Alone Current Daily Living Assistance : None Mobility Assistance Prior to Admission : Independent Current Home Treatments : CPAP Home Equipment : None Professional Skilled Services : None Special Services and Community Resources : None ROMEO PADRON RN - 08/25/2020 18:14 EST General Info Preferred Name : ilsa Mode of Arrival on Unit : Ambulatory Legal Guardian : Spouse Support Person/Patient Benefits Representative : Yes Support Person/Pt Rep Name : Willard Contact Password : Marvin Support Person/Pt Rep Contact Information : [phone] Want Family/Rep/Phys Notified of Admit : No Emergency Contact #1 : rodney buitrago Emergency Contact #1 Emergency Contact #1 Relationship : son Emergency Contact #2 : . Emergency Contact #2 Phone Number : . Emergency Contact #2 Relationship : . Chief Complaint : pt to ED from home for leg wound. pt seen here Tuesday for same. pt also c/o nausea that started on the way to ED Information Obtained From : Patient Primary Language : Haitian Preferred Communication Mode : Verbal Communication Barrier : None Glost Tile Sorter Needed : No ROMEO PADRON RN - 08/25/2020 18:14 EST Fall Risk Scales ABCs Fall Injury Risk Identification : Age, Bones, Coagulation ABC Fall Injury Risk : Moderate to high injury risk THOMAS Hx Falls Immediate/Within 3 Months : Yes Thomas Secondary Diagnosis : Yes THOMAS Use of Ambulatory Aid : None THOMAS IV Therapy or IV Access : No Thomas Gait/Transferring : Weak Thomas Mental Status : Oriented to own ability Thomas Fall Risk Score : 50 THOMAS Fall Scale Risk Level : 46 or > High Risk [place] Fall Interventions : Adequate lighting, Assistive devices within reach, Bed in low position, Call device within reach, Fall prevention handout/education per facility policy, Hourly comfort/safety rounds, Non-slip footwear, Personal items within reach, Reinforced to call for assistance before getting out of bed, Room free of clutter/spills, Upper side-rails up, Wheels locked, Wires/Cords secured Fall Moderate to High Risk Interventions : High Risk for Fall sign in place per policy, Supervise toileting as indicated ROMEO PADRON RN - 08/25/2020 18:14 EST Fall Risk Education Grid Fall Prevention Protocol : Verbalizes understanding Symptom Reporting : Verbalizes understanding Wait for Assistance : Verbalizes understanding ROMEO PADRON RN - 08/25/2020 18:14 EST Fall Risk Scale Calc Temp : 0 ROMEO PADRON RN - 08/25/2020 18:14 EST Health Histories Smoking Status : Former smoker, quit more than 30 days ago Smokeless Tobacco Status : Never ROMEO PADRON RN - 08/25/2020 18:14 EST Social History (As Of: 08/25/2020 18:21:30 EST) Tobacco: Smoking Status Former smoker. Comments: 11/23/2016 13:03 - DAVIDA ISAAC RN: quite 1993 (Last Updated: 11/23/2016 13:03:39 EST by DAVIDA [...] Source : Stated Height Entry Format : [place] Height, Feet : 5 ft(Converted to: 152 cm, 60 Inch) Height, Inches : 3 Inch(Converted to: 0 ft 3 Inch, 7.62 cm) Clinical Height : 160.02 cm Weight Source : Bed scale Weight Entry Format : Buras Clinical Dosing Weight : 69.09 kg Weight, Pounds : 152 lb Body Surface Area (BSA) : 1.72 m2 Body Mass Index : 27 kg/m2 (HI) [place] Body Weight : 52 kg ROMEO PADRON RN - 08/25/2020 18:14 EST Infectious Disease History Has the patient ever been tested for COVID-19? : Yes, Patient stated results Negative Date of COVID-19 test known? : Yes Date of COVID-19 Test : 08/25/2020 EST Does patient have symptoms of COVID-19? : No COVID19 Screening : No Experiencing Infectious Disease Symptoms : No symptoms Physical contact outside [place] in the last 30 days : No Infectious Disease History : Chicken pox/Shingles, Measles, Mumps Active Surveillance Screen Assessment : Patient does not meet any of above criteria Active Surveillance Screen Negative : Yes Exposure to Contagious Illness : No Tuberculosis Symptoms : None ROMEO PADRON RN - 08/25/2020 18:14 EST Influenza Vaccine Asmt, Adult Previous Vaccines from Immunization Schedule : No qualifying data available. Influenza Immunization, Current Season : Yes ROMEO PADRON RN - 08/25/2020 18:14 EST Pneumococcal Vaccine Previous Vaccines from Immunization Schedule : No qualifying data available. Pneumonia Immunization Received : Yes ROMEO PADRON RN - 08/25/2020 18:14 EST Order Details Order Detail : N/A Patient Needs Meds Crushed/Liquid : No ROMEO PADRON RN - 08/25/2020 18:14 EST Nutrition History Feeding Ability : Independent Adaptive Feeding Equipment : None Adaptive Feeding Equipment : Regular Eating Poorly Due to Decreased Appetite : No Unplanned Weight Loss in Past 3-6 Months : No Malnutrition Screening Tool Total(mal) : 0 Malnutrition Screening Tool Risk Level : Patient not at risk ROMEO PADRON RN - 08/25/2020 18:14 EST [place] Suicide Severity Rating Scale (C-SSRS) CSSRS Past Month Wish to be : No CSSRS Past Month Suicidal Thoughts : No CSSRS Lifetime Suicide Behavior : No Suicide Severity Rating Score : 0 Suicide Severity Rating : No Additional Care Required at this time ROMEO PADRON RN - 08/25/2020 18:14 EST Psychosocial History Does Someone Depend on You for Care? : No Chronic/Terminal Illness w/Freq Visits : No Currently in Unsafe Situation : No ROMEO PADRON RN - 08/25/2020 18:14 EST Sleep Apnea Risk Assmt BiPAP/CPAP Ordered for Home Use : Yes Hx of Obstructive Sleep Apnea Diagnosis : Yes BiPAP/CPAP Used at Home : No Reason BiPAP/CPAP Not Used at Home : dont like it. Age over 50 Years Old : Yes Gender Male : No Sleep Apnea Risk Comment : has not used x 1 month, is causing sinus infections per pt ROMEO PADRON RN - 08/25/2020 18:14 EST Spiritual/Cultural Needs Any Spiritual/Cultural Needs or Requests : No Spiritual/Cultural Needs Comment : joseph after surgery or major surgery ROMEO PADRON RN - 08/25/2020 18:14 EST Valuables and Belongings Valuables and Belongings : Clothing, Jewelry, Personal items, No comfort items, No assistive devices, No respiratory devices, No medications Clothing : Outerwear Clothing Disposition : Bedside Jewelry : Ring Jewelry Disposition : With patient Personal Items : Cell phone Personal Items Disposition : Bedside ROMEO PADRON RN - 08/25/2020 18:14 EST Electronically signed by Sivan [facility] Conversion Help Desk Engineer Cerner at 02/04/2023 2:14 PM CDT documented in this encounter Plan of Treatment Not on file documented as of this encounter Visit Diagnoses Not on filedocumented in this encounter Care Teams Tube Trailer Filler Relationship Specialty Start Date End Date Jay Howell MD [address] [place] [phone] PCP - General Emergency Medicine 11/12/23 documented as of this encounter
--- OUTSIDE RECORDS SUMMARY | 2025-07-12 08:38 | XMS_ITS | Encounter Summary ---
Author Organization [employer] ([place], [place], [place], [place]) Address [address] [place] [address] Care Team Providers Care Shaping Machine Operator Name Role Phone Jay Howell MD Primary Care Provider [phone] Encounter Details Date Type Department Care Team (Late st Contact Info) Description 08/25/2020 Transcribed Document [facility] [place] [address] [place] [address] ProviderJessie MD [address] [place] [address] Social History Tobacco Use Types Packs/Day Years Used Date Smoking Tobacco: Never Assessed Comments Unknown Sex and Gender Information Value Date Recorded Sex Assigned at Not on file Legal Sex Female 7:30 PM CDT Gender Identity Not on file Sexual Orientation Not on file documented as of this encounter Miscellaneous Notes * Cerner Conversion Note - Jessie Yuen MD - 08/25/2020 9:27 AM CONFECTIONERY LABORATORY MANAGER Patient: SKYLER MONTOYA Age: 79 years Sex: Female : 1940 Associated Diagnoses: None Author: BRADLEY MILLS, PharmD, BCPS 79yo female with Left lower extremity wound starting on abx. Rx asked to follow for vancomycin dosing. Current ABX 1. Vancomycin per RX 2. Zosyn 3.375g IV q6h Vitals Signs (last 24 hrs) Last Charted Minimum Maximum Temp 98.4 (AUG 25 04:41) 98.4 (AUG 25:41) 98.4 (AUG 25:41) Apical HR 61 (AUG 25 06:35) 61 (AUG 25 06:35) 61 (AUG 25 06:35) Mon HR 62 (AUG 25 07:03) 62 (AUG 25 05:51) 62 (AUG 25 05:51) Periph HR 81 (AUG 25:41) 81 (AUG 25 04:41) 81 (AUG 25:41) Resp Rate 20 (AUG 25:03) 16 (AUG 25:41) 20 (AUG 25 07:03) SBP H 221 (AUG 25:03) H 197 (AUG 25 05:51) H 221 (AUG 25:03) DBP 90 (AUG 25:03) 80 (AUG 25:07) H 133 (AUG 25 05:51) MAP 115 (AUG 25:07) 115 (AUG 25:07) 158 (AUG 25 05:51) SpO2 97 (AUG 25 07:03) 95 (AUG 25:07) 97 (AUG 25:41) Labs: Labs (Last four charted values) WBC 6.0 (AUG 25) HB 12.0 (AUG 25) HCT 36.1 (AUG 25) Plt 178 (AUG 25) Na 136 (AUG 25) K 3.7 (AUG 25) Cl 105 (AUG 25) CO2 25 (AUG 25) BUN 12 (AUG 25) Cr 0.90 (AUG 25) Glu R H 120 (AUG 25) Ca 9.1 (AUG 25) Lactic C 2.3 (AUG 25) C 2.1 (AUG 25) PT H 32.5 (AUG 25) INR H 3.1 (AUG 25) AST 29 (AUG 25) ALT 32 (AUG 25) ALK P 63 (AUG 25) T Bili 0.9 (AUG 25) PTN 8.1 (AUG 25) ALB 4.0 (AUG 25) wt. 69kg Est CrCl = 48ml/min I/O -New admit C/x -Pending A/P 1. Patient received vancomycin 1g IV at ~0600, based upon age, wt, and renal function will start vancomycin 1g IV q24h next dose at 2100 this evening to target a trough of 10-20. 2. Trough level prior to dose on 08/27 @ 1999, Hold if >21 3. Other meds adjusted appropriately at this time, will monitor for changes. Rx will follow, Bradley Mills PharmD,BCPS,BCCCP #[id number] Electronically signed by Sivan, [facility] Conversion Inspector Ball Points Cerner at 02/04/2023 2:13 PM CDT documented in this encounter Plan of Treatment Not on file documented as of this encounter Visit Diagnoses Not on filedocumented in this encounter Care Teams Shaping Machine Operator Relationship Specialty Start Date End Date Jay Howell MD [address] [place] [phone] PCP - General Emergency Medicine 11/12/23 documented as of this encounter
--- OUTSIDE RECORDS SUMMARY | 2025-07-12 08:39 | XMS_ITS | Encounter Summary ---
Author Organization [employer] ([place], [place], [place], [place]) Address [address] [place] [address] Care Team Providers Care Executive Wellness Programs Director Name Role Phone Jay Howell MD Primary Care Provider [phone] Encounter Details Date Type Department Care Team (Late st Contact Info) Description 08/26/2020 Transcribed Document [facility] [place] Medicine [address] [place] [address] ProviderJessie MD [address] [place] [address] Social History Tobacco Use Types Packs/Day Years Used Date Smoking Tobacco: Never Assessed Comments Unknown Sex and Gender Information Value Date Recorded Sex Assigned at Not on file Legal Sex Female 7:30 PM CDT Gender Identity Not on file Sexual Orientation Not on file documented as of this encounter Miscellaneous Notes * Cerner Conversion Note - Historical ProviderMD - 08/26/2020 12:15 PM TRAVEL GUIDE Peripheral Nerve Block Entered On: 08/26/2020 12:27 EST Performed On: 08/26/2020 12:15 EST by CARLTON GUTIERREZ Peripheral Nerve Block Peripheral Nerve Block End Date/Time : 08/26/2020 12:30 EST CARLTON GUTIERREZ - 08/26/2020 12:38 EST Peripheral Nerve Block Start Date/Time : 08/26/2020 12:16 EST Verbally Confirm Pt, Site, and Procedure : Yes Time Out Pause Time : 08/26/2020 12:15 EST Site Marked and Visible : Yes Site Preparation : Chlorhexidine (Hibiclens) Peripheral Nerve Block : Adductor Canal, Popliteal Laterality : Left Peripheral Nerve Block Performed by : ALEK ANGULO MD-ANS Medication Delivery Method : Single Shot Peripheral Nerve Block Assisted by : CARLTON GUTIERREZ Ultra sound used during insertion : Yes Nerve Block Activity, Patient Tolerance : Good CARLTON GUTIERREZ - 08/26/2020 12:25 EST Electronically signed by [facility], [facility] Conversion Gasoline Truck Crane Operator Cerner at 02/04/2023 2:08 PM CDT documented in this encounter Plan of Treatment Not on file documented as of this encounter Visit Diagnoses Not on filedocumented in this encounter Care Teams Executive Wellness Programs Director Relationship Specialty Start Date End Date Jay Howell MD [address] [place] [phone] PCP - General Emergency Medicine 11/12/23 documented as of this encounter
--- OUTSIDE RECORDS SUMMARY | 2025-07-12 08:39 | XMS_ITS | Encounter Summary ---
Author Organization [employer] ([place], [place], [place], [place]) Address [address] [place] [address] Care Team Providers Care Security Shift Manager Name Role Phone Jay Howell MD Primary Care Provider [phone] Encounter Details Date Type Department Care Team (Late st Contact Info) Description 08/26/2020 Transcribed Document [facility] [place] [address] [place] [address] ProviderJessie MD [address] [place], [place] [address] Social History Tobacco Use Types Packs/Day Years Used Date Smoking Tobacco: Never Assessed Comments Unknown Sex and Gender Information Value Date Recorded Sex Assigned at Not on file Legal Sex Female 7:30 PM CDT Gender Identity Not on file Sexual Orientation Not on file documented as of this encounter Miscellaneous Notes * Cerner Conversion Note - Historical ProviderMD - 08/26/2020 11:38 AM ENERGY CONSERVATION DIRECTOR Event Note Entered On: 08/26/2020 11:38 EST Performed On: 08/26/2020 11:38 EST by CARLTON GUTIERREZ Event Note Event Date/Time : 08/26/2020 11:15 EST Event Location : [place] Event Details : Other: Description of Event : 1115: [facility] PT 25 INR 2.4 CARLTON GUTIERREZ - 08/26/2020 11:38 EST documented in this encounter Plan of Treatment Not on file documented as of this encounter Visit Diagnoses Not on filedocumented in this encounter Care Teams Security Shift Manager Relationship Specialty Start Date End Date Jay Howell MD [address] [place] [phone] PCP - General Emergency Medicine 11/12/23 documented as of this encounter
--- OUTSIDE RECORDS SUMMARY | 2025-07-12 08:39 | XMS_ITS | Encounter Summary ---
Author Organization [employer] ([place], [place], [place], [place]) Address [address] [place] [address] Care Team Providers Care Data Processing Systems Project Planner Name Role Phone Jay Howell MD Primary Care Provider [phone] Encounter Details Date Type Department Care Team (Late st Contact Info) Description 08/26/2020 Transcribed Document [facility] [place] [address] [place] [address] ProviderJessie MD [address] [place] [address] Social History Tobacco Use Types Packs/Day Years Used Date Smoking Tobacco: Never Assessed Comments Unknown Sex and Gender Information Value Date Recorded Sex Assigned at Not on file Legal Sex Female 7:30 PM CDT Gender Identity Not on file Sexual Orientation Not on file documented as of this encounter Miscellaneous Notes * Cerner Conversion Note - Historical ProviderMD - 08/26/2020 9:06 AM CORE PASTER Patient: SKYLER MONTOYA Age: 79 years Sex: Female : 1940 Associated Diagnoses: None Author: Cheng Jennings, Cake Icer And Packer Cert 79yo female with Left lower extremity wound starting on abx. Rx asked to follow for vancomycin dosing. Current ABX 1. 2. Zosyn 3.375g IV q6h 3. Dapto 300mg IV daily started Vitals Signs (last 24 hrs) Last Charted Minimum Maximum Temp 98.7 (AUG 26 06:00) 98.7 (AUG 26 06:00) 98.3 (AUG 25 17:56) Apical HR 60 (AUG 26 08:52) 60 (AUG 26 08:52) 76 (AUG 25 19:19) Mon HR 70 (AUG 26 06:00) 60 (AUG 25 12:00) 75 (AUG 25 17:56) Resp Rate 16 (AUG 26 06:00) 16 (AUG 25 10:30) H 24 (AUG 25 12:15) SBP H 150 (AUG 26 06:00) 134 (AUG 26 01:25) H 213 (AUG 25 12:30) DBP 71 (AUG 26 06:00) L 53 (AUG 26 01:25) 87 (AUG 25 12:30) MAP 93 (AUG 26 06:00) 73 (AUG 26 01:25) 125 (AUG 25 12:30) SpO2 96 (AUG 26 06:00) 95 (AUG 25 11:00) 98 (AUG 25 09:30) Labs: Labs (Last four charted values) WBC 5.2 (AUG 26) 6.0 (AUG 25) HB L 10.0 (AUG 26) 12.0 (AUG 25) HCT L 30.5 (NOV ) 36.1 (NOV ) Plt L 140 (NOV ) 178 (NOV ) Na 138 (NOV ) 136 (NOV ) K L 3.4 (AUG 26) 3.7 (AUG 25) Cl 107 (NOV ) 105 (NOV ) CO2 26 (NOV ) 25 (NOV ) BUN 10 (NOV ) 12 (NOV ) Cr 0.70 (NOV ) 0.90 (NOV ) Glu R H 109 (NOV ) H 120 (NOV ) Ca 8.4 (NOV ) 9.1 (NOV ) Lactic 1.8 (AUG 25) C 2.3 (AUG 25) C 2.1 (NOV ) PT H 25.0 (NOV ) H 32.5 (NOV ) INR H 2.4 (AUG 26) H 3.1 (AUG 25) AST 29 (NOV ) ALT 32 (NOV ) ALK P 63 (AUG 25) T Bili 0.9 (AUG 25) PTN 8.1 (AUG 25) ALB 4.0 (AUG 25) CK 87 wt. 69kg Est CrCl = 63 ml/min C/x - 08/25 Blood: NGTD - 08/25 Wound: NGTD A/P 1. Vancomycin changed to dapto, per ID. Trough cancelled. 2. Recommend weekly CK while on dapto, baseline is 87. 3. Pharmacy will sign-off, please reconsult if further assistance is desired. Rx will continue to follow, Cheng Jennings, PharmD/MPH Candidate Kell OlsonD Electronically signed by [facility], [facility] Conversion Tufting Machine Operator Cerner at 02/04/2023 2:17 PM CDT documented in this encounter Plan of Treatment Not on file documented as of this encounter Visit Diagnoses Not on filedocumented in this encounter Care Teams Data Processing Systems Project Planner Relationship Specialty Start Date End Date Jay Howell MD [address] [place] [phone] PCP - General Emergency Medicine 11/12/23 documented as of this encounter
--- OUTSIDE RECORDS SUMMARY | 2025-07-12 08:39 | XMS_ITS | Encounter Summary ---
Author Organization [employer] ([place], [place], [place], [place]) Address [address] [place] [address] Care Team Providers Care Clearing Tub Worker Name Role Phone Jay Howell MD Primary Care Provider [phone] Encounter Details Date Type Department Care Team (Late st Contact Info) Description 08/26/2020 Transcribed Document [facility] [place] Family Medicine [address] [place] [address] ProviderJessie MD [address] [place], [place] [id number] Social History Tobacco Use Types Packs/Day Years Used Date Smoking Tobacco: Never Assessed Comments Unknown Sex and Gender Information Value Date Recorded Sex Assigned at Not on file Legal Sex Female 7:30 PM CDT Gender Identity Not on file Sexual Orientation Not on file documented as of this encounter Miscellaneous Notes * Cerner Conversion Note - Historical ProviderMD - 08/26/2020 2:41 PM AIR BREAKER OPERATOR Event Note Entered On: 08/26/2020 14:42 EST Performed On: 08/26/2020 14:41 EST by TRICIA VAZQUEZ RN Event Note Event Date/Time : 08/26/2020 14:30 EST TRICIA VAZQUEZ RN - 08/26/2020 14:41 EST Description of Event : 1430: Pt recieved from Endo via stretcher. Awake. Denies discomfort. Sinus amber per monitor. Oxygen maintained at 2 L pnc. Angioseal to right groin. No bleeding or hematoma. Right pulses 2 +. Left lower leg with kerlex dressing that is CDI. Left pulses 2 +, left foot warm. Bruising to left foot and lower leg. Aware of bedrest restrictions. Accucheck 105. David Vazquez RN 1615: C/o right lower abdominal pain. Abdomen is soft. Groin site is soft. No bleeding or hematoma. Denies radiation into her back. Dr. Verde here and notified. No new orders. David Vazquez RN 1635; States that abdominal pain is completely gone. Abdomen remains soft. Groin site is soft, no bleeding or hematoma. David Vazquez RN 1700: Report called to 6th floor. Pt tranported to room via stretcher. Spouse with pt. Right groin site remains soft and without bleeding or hematoma. Rupinder Gallo CARLA L, RN - 08/26/2020 18:03 EST Electronically signed by [facility], [facility] Conversion Formation Testing Operator Cerner at 02/04/2023 2:15 PM CDT documented in this encounter Plan of Treatment Not on file documented as of this encounter Visit Diagnoses Not on filedocumented in this encounter Care Teams Clearing Tub Worker Relationship Specialty Start Date End Date Jay Howell MD [address] [place] [phone] PCP - General Emergency Medicine 11/12/23 documented as of this encounter
--- OUTSIDE RECORDS SUMMARY | 2025-07-12 08:39 | XMS_ITS | Encounter Summary ---
Author Organization [employer] ([place], [place], [place], [place]) Address [address] [place] [address] Care Team Providers Care Business Office Director Name Role Phone Jay Howlel MD Primary Care Provider [phone] Encounter Details Date Type Department Care Team (Late st Contact Info) Description 08/26/2020 Transcribed Document [facility] [place] [address] [place] [address] ProviderJessie MD [address] [place] [address] Social History Tobacco Use Types Packs/Day Years Used Date Smoking Tobacco: Never Assessed Comments Unknown Sex and Gender Information Value Date Recorded Sex Assigned at Not on file Legal Sex Female 7:30 PM CDT Gender Identity Not on file Sexual Orientation Not on file documented as of this encounter Miscellaneous Notes * Cerner Conversion Note - Historical ProviderMD - 08/26/2020 2:16 PM FINANCIAL SYSTEMS DIRECTOR Initial Discharge Planning Entered On: 08/26/2020 14:19 EST Performed On: 08/26/2020 14:16 EST by KAVITA PELLETIER RN-High Pressure Boiler Operator Initial Assessment I Previously Documented Living Environment : No qualifying data available. Living Situation : Home Patient Lives With : Spouse Employment/Vocation : retired Emergency Contact #1 : rodney gracelee Emergency Contact #1 Emergency Contact #1 Relationship : son Emergency Contact #2 : . Emergency Contact #2 Phone Number : . Emergency Contact #2 Relationship : . Enter Doctors Name : CHEN, TARA (REF), -MED Does Patient have PCP Listed? : Yes Medical Durable Power of Edge Glue Machine Tender Name : No KAVITA PELLETIER RN-High Pressure Boiler Operator - 08/26/2020 14:16 EST Initial Assessment II Sensory and Motor Deficits : Weakness Current Home Treatments and Equipment : CPAP, Walker KAVITA PELLETIER RN-High Pressure Boiler Operator - 08/26/2020 14:16 EST Narrative Note Narrative Note : Chart review: 79 yo female pt admitted with LLE wound and redness. Pt fell hitting her lef on the stairs 08/16. She went to ED on 08/22 where she was noted to have a hematoma. It was drained and packed and she was sent home on abx. Pt presents with worsening pain and redness. BCx2/wound cx's-pending. Vasc--Pt going to OR today for LLE angiogram with I&D and NPWT. ID-IV Dapto/Zosyn pending cx's. WOCN pending. Pt will likely go to C for groin management after surgery. Pt off floor before CM rounded. DCP dependent upon POC. CM will follow. KAVITA PELLETIER RN-High Pressure Boiler Operator - 08/26/2020 14:16 EST documented in this encounter Plan of Treatment Not on file documented as of this encounter Visit Diagnoses Not on filedocumented in this encounter Care Teams Business Office Director Relationship Specialty Start Date End Date Jay Howell MD [address] [place] [phone] PCP - General Emergency Medicine 11/12/23 documented as of this encounter
--- OUTSIDE RECORDS SUMMARY | 2025-07-12 08:39 | XMS_ITS | Encounter Summary ---
Author Organization [employer] ([place], [place], [place], [place]) Address [address] [place] [address] Care Team Providers Care Guide Name Role Phone Jay Howell MD Primary Care Provider [phone] Encounter Details Date Type Department Care Team (Late st Contact Info) Description 08/26/2020 Transcribed Document [facility] [place] Family Medicine [address] [place] [address] ProviderJessie MD [address] [place], [place] [address] Social History Tobacco Use Types Packs/Day Years Used Date Smoking Tobacco: Never Assessed Comments Unknown Sex and Gender Information Value Date Recorded Sex Assigned at Not on file Legal Sex Female 7:30 PM CDT Gender Identity Not on file Sexual Orientation Not on file documented as of this encounter Miscellaneous Notes * Cerner Conversion Note - Historical ProviderMD - 08/26/2020 1:15 PM SERVICE NOW DEVELOPER [facility] Main OR Preop Summary Primary Physician: KAELA HEBERT MD Finalized Date/Time: 08/26/20 13:59:45 Pt. Name: SKYLER MONTOYA.O.B./Sex: 1940 Female Med Rec #: [id number] Physician: BETH DAVALOS MD-INT Financial #: [id number] Pt. Type: I Room/Bed: [facility]/ Admit/Disch: 08/25/20 05:53:00 - Institution: [facility] PreOp Case Times Entry 1 In Preop 08/26/20 10:52:00 Ready for Holding n/a Room Patient Ready for 08/26/20 11:30:00 Surgery Patient Out of Preop 08/26/20 12:57:00 Patient Out of n/a Holding Room Last Modified By: CARLTON GUTIERREZ 08/26/20 13:59:44 [facility] PreOp Case Times Audit 08/26/20 13:59:44 City Driver: [email or web address] Modifier: [email or web address] <+> 1 Patient Out of Preop 08/26/20 11:36:02 City Driver: [email or web address] Modifier: [email or web address] <+> 1 Patient Ready for Surgery Finalized By: CARLTON GUTIERREZ Document Signatures Signed By: CARLTON GUTIERREZ 08/26/20 13:59 Electronically signed by Sivan [facility] Conversion Priming Powder Premix Blender Cerner at 02/04/2023 2:16 PM CDT documented in this encounter Plan of Treatment Not on file documented as of this encounter Visit Diagnoses Not on filedocumented in this encounter Care Teams Guide Relationship Specialty Start Date End Date Jay Howell MD [address] [place] [phone] PCP - General Emergency Medicine 11/12/23 documented as of this encounter
--- OUTSIDE RECORDS SUMMARY | 2025-07-12 08:39 | XMS_ITS | Encounter Summary ---
Author Organization [email or web address] ([place], [place], [place], [place]) Address [address] [place] [address] Care Team Providers Care Personal Lines Sales Executive Name Role Phone Jay Howell MD Primary Care Provider [phone] Encounter Details Date Type Department Care Team (Late st Contact Info) Description 08/26/2020 Transcribed Document [facility] [place] Family Medicine [address] [place] [address] ProviderJessie MD [address] [place] [address] Social History Tobacco Use Types Packs/Day Years Used Date Smoking Tobacco: Never Assessed Comments Unknown Sex and Gender Information Value Date Recorded Sex Assigned at Not on file Legal Sex Female 7:30 PM CDT Gender Identity Not on file Sexual Orientation Not on file documented as of this encounter Miscellaneous Notes * Cerner Conversion Note - Jessie Yuen MD - 08/26/2020 8:24 AM SPONGE MAKER Patient: SKYLER MONTOYA Age: 79 years Sex: Female : 1940 Associated Diagnoses: None Author: KAVITHA HIDALGO MD-INF MEDS: daptomycin, zosyn CC: leg infection HPI: This is an 79-year-old woman with extensive comorbidity as outlined below, on chronic anticoagulation with Coumadin. She reports having fallen while trying to step off her wood deck and traumatized her left reid on one of the wood steps on approximately August 16. She had subsequent bruising/swelling and redness. Maria Elena was called in empirically by her PCP, although no outpatient cultures that she knows of. She came to the emergency room on August 22, at which point she was thought to have an infected hematoma/abscess and given empiric clindamycin with incision in the emergency room. She reports further deterioration since with increased redness/swelling and pain. 08/26/20 seen early and sleepy; + pain in the left lower leg between knee and ankle, but worse at the midsection. The pain is constant, sharp at times, nonradiating, worse with palpation and wound care, generally better with analgesics and 3 out of 10 in severity. Diffuse bruising between knee and ankle. No headache, photophobia, or neck stiffness. No shortness of breath, cough, or hemoptysis. No nausea, vomiting, diarrhea, or abdominal pain. No dysuria, hematuria, or pyuria. No other rash. REVIEW OF SYSTEMS: 08/26/20 CONSTITUTIONAL: No fever. No chills or sweats. She is [...] acute complaints on 12-system review of systems. PE: Vitals Signs (last 24 hrs) Last Charted Minimum Maximum Temp 98.7 (AUG 26 06:00) 98.7 (AUG 26:) 98.3 (AUG 25 17:56) Apical HR 66 (AUG 25 23:07) 66 (AUG 25 23:07) 76 (AUG 25 19:19) Mon HR 70 (AUG 26:) 56 (AUG 25 08:30) 75 (AUG 25 17:56) Resp Rate 16 (AUG 26:) 16 (AUG 25:30) H 24 (AUG 25 12:15) SBP H 150 (AUG 26:) 134 (AUG 26) H 213 (AUG 25:30) DBP 71 (AUG 26:) L 53 (AUG 26) 87 (AUG 25:) MAP 93 (AUG 26:) 73 (AUG 26) 125 (AUG 25:) SpO2 96 (AUG 26:) 94 (AUG 25:30) 98 (AUG 25:) GENERAL: The patient is elderly, sleepy EYES: Pupils generally equal in size. No [...] elbows, wrists, hips, knees, and ankles. NEUROLOGIC: sleepy Left lower leg with diffuse bruising between [...] No crepitus or bulla. No discrete fluctuance. Lines: no redness or purulence LABS: CBC Results (Current Encounter/Past 24 Hours) WBC 5.2 K/uL 08/26/2020 04:08 Hct 30.5 % LOW 08/26/2020 04:08 Hgb 10.0 g/dL LOW 08/26/2020 04:08 Platelet Count 140 K/uL LOW 08/26/2020 04:08 CMP Results (Current Encounter/Past 24 Hours) A/G Ratio 1.0 LOW 08/25/2020 05:36 Globulin 4.1 Gram/dL 08/25/2020 05:36 Protein Total 8.1 Gram/dL 08/25/2020 05:36 Creatinine Level 0.70 mg/dL 08/26/2020 04:23 Bun/Creatinine 14.3 08/26/2020 04:23 eGFR >60 mL/min/1.73m2 08/26/2020 04:23 eGFR NonAfrican >60 mL/min/1.73m2 08/26/2020 04:23 Sodium Level 138 mmol/L 08/26/2020 04:23 Potassium Level 3.4 mmol/L LOW 08/26/2020 04:23 Chloride Level 107 mmol/L 08/26/2020 04:23 Carbon Dioxide Level 26 mmol/L 08/26/2020 04:23 Anion Gap 8 LOW 08/26/2020 04:23 Alk Phos 63 Units/Liter 08/25/2020 05:36 ALT 32 Units/Liter 08/25/2020 05:36 AST 29 Units/Liter 08/25/2020 05:36 Blood Urea Nitrogen 10 mg/dL 08/26/2020 04:23 Glucose Level 109 mg/dL HI 08/26/2020 04:23 Albumin Level 4.0 Gram/dL 08/25/2020 05:36 Bilirubin Total 0.9 mg/dL 08/25/2020 05:36 Calcium Level 8.4 mg/dL 08/26/2020 04:23 MICRO: ACC: [id number] ORDER: Culture Wound and Stain DATE: 08/25/2020 05:00 SOURCE: Wound SITE: Leg Lower L Reports Pre 08/26/2020 06:23 No growth GS 08/25/2020 07:26 No organisms seen. Few White Blood Cells Rare epithelial cells == ACC: [id number] ORDER: Culture Blood DATE: 08/25/2020 05:01 SOURCE: Blood SITE: Reports Pre 08/26/2020 06:01 No growth at 1 day. Pre 08/25/2020 23:02 Culture less than 24 Hrs old == ACC: [id number] ORDER: Culture Blood DATE: 08/25/2020 05:01 SOURCE: Blood SITE: Reports Pre 08/26/2020 06:01 No growth at 1 day. Pre 08/25/2020 23:02 Culture less than 24 Hrs old == Radiology Results (Last 48 hours) [id number] -- 08/25/2020 05:53 CR Chest 1 Vw Portable (08/25/2020 06:32) Result: PORTABLE CHEST; HISTORY: Pre-op.COMPARISON: June 12, 2020.FINDINGS: There is ectasia of the aorta with calcified plaque noted. Thepatient is status post median sternotomy. The heart is normal in size. The mediastinum is unremarkable. The lungs are well expanded. Thereare chronic interstitial changes. There is no acute infiltrate. There isno pneumothorax. IMPRESSION: No acute process.Images reviewed, interpreted, and dictated by Dr. Patrice Eaton.Transcribed by Kitty Villarreal PA-C.I have personally viewed, interpreted and dictated the examination. Ihave read and agree with the above final transcribed report. MRI Spine Lumbar WO (08/25/2020 15:21) Result: MRI LUMBAR SPINE WITHOUT CONTRASTHISTORY: Lumbar back pain.PROCEDURE: Multiplanar MR imaging of the lumbar spine was performed inmultiple MR sequences.FINDINGS: Cord terminates appropriately. The disc signal is diminishedthroughout the lumbar spine. There are postoperative changes at L4-5.There is disc space narrowing at L5-S1. Lesions at L2 and L3 likelyrepresent hemangiomas. There are multiple nonspecific bilateral renallesions measuring between 10 and 35 mm.L3-4: There is severe facet hypertrophy and a broad-based disc bulge.There is ligamentum flavum redundancy. There is moderate central canalstenosis. There is moderate bilateral neural foraminal stenosis.L4-5: There is severe facet hypertrophy. The level is fused. There is nocentral canal stenosis. There is mild bilateral neural foraminalstenosis.L5-S1: There is facet hypertrophy and a broad-based disc bulge. There isno central canal or neural foraminal stenosis.IMPRESSION: Degenerative disc disease as above.Renal lesions as above. Follow up renal protocol CT recommended.Images reviewed, interpreted, and dictated by Charlette Herrera MD Impression: 1. Acute left lower leg cellulitis. It is in the setting of trauma from August 16 with subsequent hematoma/bruising and deterioration despite outpatient debridement and outpatient Keflex with subsequent clindamycin. Surgery following to help guide timing/option threshold for further debridement at their discretion. Currently, I am unable to probe to [...] healing. 4. Chronic heart and lung disease. 5. PVD; per vascular team PLAN: 1. Daptomycin IV. 2. Zosyn IV. 3. d/w K Cranfill 4. Monitor IV and IV antibiotic with risk for systemic complication and potential drug interaction. 5. Check labs, culture, and scans. 6. Partial history per nursing staff. 7. Highly complex set of issues, high risk for further serious morbidity and other serious sequela. 8. Vascular team following as above. Discussed with them. Electronically signed by [facility] Conversion Emotional Support Teacher Cerner at 02/04/2023 2:09 PM CDT documented in this encounter Plan of Treatment Not on file documented as of this encounter Visit Diagnoses Not on filedocumented in this encounter Care Teams Personal Lines Sales Executive Relationship Specialty Start Date End Date Jay Howell MD [address] [place] [phone] PCP - General Emergency Medicine 11/12/23 documented as of this encounter
--- OUTSIDE RECORDS SUMMARY | 2025-07-12 08:40 | XMS_ITS | Encounter Summary ---
Author Organization [employer] ([place], [place], [place], [place]) Address [address] [place] [address] Care Team Providers Care Bacteriologist Pharmaceutical Name Role Phone Jay Howell MD Primary Care Provider [phone] Encounter Details Date Type Department Care Team (Late st Contact Info) Description 03/18/2021 Transcribed Document [facility] [place] [facility] [place] [address] ProviderJessie MD [address] [place] [id number] Social History Tobacco Use Types Packs/Day Years Used Date Smoking Tobacco: Never Assessed Comments Unknown Sex and Gender Information Value Date Recorded Sex Assigned at Not on file Legal Sex Female 7:30 PM CDT Gender Identity Not on file Sexual Orientation Not on file documented as of this encounter Miscellaneous Notes * Cerner Conversion Note - Historical ProviderMD - 03/18/2021 6:00 AM CDT Pain Assessment Entered On: 03/18/2021 7:41 EDT Performed On: 03/18/2021 7:14 EDT by Sarah Vivar Non Emp RN Intervention Information: oxyCODONE Performed by Sarah Vivar Non Emp RN on 03/18/2021 06:14:00 EDT oxyCODONE,5mg Oral Pain Assessment Pain Assessment : Follow-up assessment Pain Scale Goal : 5 Pain Scale Used : 0-10 Scale Sarah Vivar Non Emp RN - 03/18/2021 7:40 EDT Pain Scale Intensity : 3 Sarah Vivar P, Non Emp RN - 03/18/2021 7:40 EDT Image 4 - Images currently included in the form version of this document have not been included in the text rendition version of the form. Electronically signed by Sivan, [facility] Conversion Dry House Tender Cerner at 02/04/2023 2:20 PM CDT documented in this encounter Plan of Treatment Not on file documented as of this encounter Visit Diagnoses Not on filedocumented in this encounter Care Teams Bacteriologist Pharmaceutical Relationship Specialty Start Date End Date Jay Howell MD [address] [place] [phone] PCP - General Emergency Medicine 11/12/23 documented as of this encounter
--- OUTSIDE RECORDS SUMMARY | 2025-07-12 08:40 | XMS_ITS | Encounter Summary ---
Author Organization [employer] ([place], [place], [place], [place]) Address [address] [place] [address] Care Team Providers Care Supervisor Vendor Quality Name Role Phone Jay Howell MD Primary Care Provider [phone] Encounter Details Date Type Department Care Team (Late st Contact Info) Description 03/18/2021 Transcribed Document [facility] [place] [facility] [place] [address] ProviderJessie MD [address] [place] [address] Social History Tobacco Use Types Packs/Day Years Used Date Smoking Tobacco: Never Assessed Comments Unknown Sex and Gender Information Value Date Recorded Sex Assigned at Not on file Legal Sex Female 7:30 PM CDT Gender Identity Not on file Sexual Orientation Not on file documented as of this encounter Miscellaneous Notes * Cerner Conversion Note - Jessie ProviderMD - 03/18/2021 8:56 AM CDT UM Authorization Entered On: 03/18/2021 8:56 EDT Performed On: 03/18/2021 8:56 EDT by MARILYNN RAMÍREZ, RN-Utilization Review Primary Insurance Authorization Authorization and Policy Numbers : Insurance 1 Health Plan: MEDICARE Policy Number: [id number] Authorization Number: Insurance 2 Health Plan: A[employer] N Policy Number: [id number] Authorization Number: Insurance Primary Name : MEDICARE Policy Number: [id number] Authorized Service Begin Date-Primary : 03/16/2021 EDT Historical Authorization Comments-Primary : No Authorization Comments Found MARILYNN RAMÍREZ, RN-Utilization Review - 03/18/2021 8:56 EDT Electronically signed by Sivan [facility] Conversion Abrading Machine Tender Cerner at 02/04/2023 2:20 PM CDT documented in this encounter Plan of Treatment Not on file documented as of this encounter Visit Diagnoses Not on filedocumented in this encounter Care Teams Supervisor Vendor Quality Relationship Specialty Start Date End Date Jay Howell MD [address] [place] [phone] PCP - General Emergency Medicine 11/12/23 documented as of this encounter
--- OUTSIDE RECORDS SUMMARY | 2025-07-12 08:40 | XMS_ITS | Encounter Summary ---
Author Organization [employer] ([place], [place], [place], [place]) Address [address] [place] [address] Care Team Providers Care Podiatry Professor Name Role Phone Jay Howell MD Primary Care Provider [phone] Encounter Details Date Type Department Care Team (Late st Contact Info) Description 03/18/2021 Transcribed Document [facility] [place] [facility] [place] [address] ProviderJessie MD [address] [place], [place] [address] Social History Tobacco Use Types Packs/Day Years Used Date Smoking Tobacco: Never Assessed Comments Unknown Sex and Gender Information Value Date Recorded Sex Assigned at Not on file Legal Sex Female 7:30 PM CDT Gender Identity Not on file Sexual Orientation Not on file documented as of this encounter Miscellaneous Notes * Cerner Conversion Note - Historical ProviderMD - 03/18/2021 4:00 PM CDT Patient: SKYLER MONTOYA Age: 80 Years Sex: Female : 1940 Subjective Pt seen/eval today; She is c/o pain in right arm but also left knee when she moves it or stands. Nurse tells me she is avoiding weight bearing LLE due to pain. No c/o dizziness, chest pain, dyspnea, paresthesias, focal weakness Vital Signs T: 37.2 ??C TMIN: 37 ??C TMAX: 37.3 ??C HR: 67(Monitored) RR: 16 BP: 100/81 SpO2: 95% Oxygen Settings (Last) Oxygen Therapy Mode: Nasal cannula (03/18/21 11:35:00) Oxygen Flow Rate: 2 Liter/Min (03/18/21 11:35:00) Intake & Output Totals Last 24 Hours (7a-7a) Input Total: 822.69 mL Output Total: 150 mL Balance: 672.69 mL Physical Exam HEENT: Head, atraumatic and [...] refill fingers right, Lower extremity; no edema, erythema. Mild left medial knee (ST) tenderness. Pain left groin area with rotation of left upper leg NEUROLOGIC: No apparent focal motor or sensory [...] vertebral flow. No evidence of subclavian steal MRI brain ordered by Dr Clarke: no acute process small vessel ischemia CTA head/neck/chest: ordered by Dr Clarke and cardiology: History of atrial fibrillation, rate controlled. We will hold Coumadin for tonight. -no surgery during hospitalization per ortho resume home dose coumadin INR 1.8 recheck in AM INR 1.9 today bridging with lovenox SQ one time, increasing coumadin 4mg daily starting 03/19 Pain right hip (POA) and left knee since fall Has been having right pain since replacement surgery but worse after fall, XR left knee neg in ED, XR left hip Right wrist fracture. We will consult Ortho. [...] Diabetes mellitus. We will start sliding scale. Dispo: pending CTA results and cards f/u; likely discharge tomorrow 03/19 9. GI prophylaxis, Pepcid. 10. Deep venous prophylaxis, compression boot. VTE Prophylaxis - Medical coumadin Sequential Compression Device Start: 03/16/21 17:31:00 EDT, Bilateral, Length: Knee High, While patient is in bed, Continuous Medications Ativan, 0.5 mg= 0.25 mL, IV [...] Test Name Test Result Date/Time Sodium Level 136 mmol/L 03/18/2021 05:19 EDT Potassium Level 3.3 mmol/L (Low) 03/18/2021 05:19 EDT Chloride Level 108 mmol/L 03/18/2021 05:19 EDT Carbon Dioxide Level 22 mmol/L 03/18/2021 05:19 EDT Anion Gap 9 03/18/2021 05:19 EDT Glucose Level 121 mg/dL (High) 03/18/2021 05:19 EDT Blood Urea Nitrogen 11 mg/dL 03/18/2021 05:19 EDT Creatinine Level 0.40 mg/dL (Low) 03/18/2021 05:19 EDT eGFR >60 mL/min/1.73m2 03/18/2021 05:19 EDT eGFR NonAfrican >60 mL/min/1.73m2 03/18/2021 05:19 EDT Bun/Creatinine 27.5 (High) 03/18/2021 05:19 EDT Calcium Level 8.1 mg/dL (Low) 03/18/2021 05:19 EDT Protein Total 6.6 Gram/dL 03/18/2021 05:19 EDT Albumin Level 3.0 Gram/dL (Low) 03/18/2021 05:19 EDT Globulin 3.6 Gram/dL 03/18/2021 05:19 EDT A/G Ratio 0.8 (Low) 03/18/2021 05:19 EDT Bilirubin Total 1.1 mg/dL 03/18/2021 05:19 EDT Alk Phos 59 Units/Liter 03/18/2021 05:19 EDT AST 16 Units/Liter 03/18/2021 05:19 EDT ALT 22 Units/Liter 03/18/2021 05:19 EDT Magnesium Level 2.0 mg/dL 03/18/2021 05:19 EDT Device Comment 1 Notified Nurse RBV 03/18/2021 00:22 EDT Device Comment 1 Notified Nurse RBV 03/17/2021 21:06 EDT Device Comment 1 Notified Nurse RBV 03/17/2021 19:10 EDT Glucose POC2 157 mg/dL (High) 03/18/2021 11:06 EDT Glucose POC2 119 mg/dL (High) 03/18/2021 00:22 EDT Glucose POC2 148 mg/dL (High) 03/17/2021 21:06 EDT Glucose POC2 144 mg/dL (High) 03/17/2021 19:10 EDT Calcium Ionized 1.14 mmol/L 03/18/2021 05:19 EDT Troponin I Ultra <0.015 ng/mL 03/17/2021 16:03 EDT WBC 6.6 K/uL 03/18/2021 05:19 EDT RBC 3.01 Million/uL (Low) 03/18/2021 05:19 EDT Hgb 9.7 g/dL (Low) 03/18/2021 05:19 EDT Hct 30.0 % (Low) 03/18/2021 05:19 EDT MCV 99.7 fL (High) 03/18/2021 05:19 EDT MCH 32.2 pg 03/18/2021 05:19 EDT MCHC 32.3 Gram/dL 03/18/2021 05:19 EDT Platelet Count 106 K/uL (Low) 03/18/2021 05:19 EDT MPV 10.2 fL 03/18/2021 05:19 EDT RDW 13.2 % 03/18/2021 05:19 EDT Neut % 62.8 % 03/18/2021 05:19 EDT Neut # 4.15 K/uL 03/18/2021 05:19 EDT Lymph % 25.2 % 03/18/2021 05:19 EDT Lymph # 1.66 x10(3)/uL 03/18/2021 05:19 EDT [place] % 11.4 % (High) 03/18/2021 05:19 EDT [place] # 0.75 K/uL 03/18/2021 05:19 EDT Eos % 0.0 % 03/18/2021 05:19 EDT Eos # 0.00 x10(3)/uL 03/18/2021 05:19 EDT Baso % 0.3 % 03/18/2021 05:19 EDT Baso # 0.02 x10(3)/uL 03/18/2021 05:19 EDT Slide Review No 03/18/2021 05:19 EDT IG# 0.02 x10(3)/uL 03/18/2021 05:19 EDT IG% 0.30 % 03/18/2021 05:19 EDT PT 19.3 Second(s) (High) 03/18/2021 05:19 EDT INR 1.9 (High) 03/18/2021 05:19 EDT Cholesterol Tot 119 mg/dL 03/18/2021 05:19 EDT Triglyceride 96 mg/dL 03/18/2021 05:19 EDT Cholesterol HDL 42.0 mg/dL 03/18/2021 05:19 EDT Cholesterol LDL Calculation 57.8 mg/dL 03/18/2021 05:19 EDT Cholesterol/HDL Ratio 2.8 03/18/2021 05:19 EDT LDL/HDL Ratio 1.4 03/18/2021 05:19 EDT Cholesterol VLDL Calculation 19.2 mg/dL 03/18/2021 05:19 EDT documented in this encounter Plan of Treatment Not on file documented as of this encounter Visit Diagnoses Not on filedocumented in this encounter Care Teams Podiatry Professor Relationship Specialty Start Date End Date Jay Howell MD [address] [place] [phone] PCP - General Emergency Medicine 11/12/23 documented as of this encounter
--- OUTSIDE RECORDS SUMMARY | 2025-07-12 08:40 | XMS_ITS | Encounter Summary ---
Author Organization [employer] ([place], [place], [place], [place]) Address [address] [place] [address] Care Team Providers Care Hospital Admissions Officer Name Role Phone Jay Howell MD Primary Care Provider [phone] Encounter Details Date Type Department Care Team (Late st Contact Info) Description 08/26/2020 Transcribed Document [facility] [place] [facility] [address] [place] [address] ProviderJessie MD [address] [place] [address] Social History Tobacco Use Types Packs/Day Years Used Date Smoking Tobacco: Never Assessed Comments Unknown Sex and Gender Information Value Date Recorded Sex Assigned at Not on file Legal Sex Female 7:30 PM CDT Gender Identity Not on file Sexual Orientation Not on file documented as of this encounter Miscellaneous Notes * Cerner Conversion Note - Historical ProviderMD - 08/26/2020 2:23 PM SERVICE CREW LEADER Patient: SKYLER MONTOYA Age: 79 Years Sex: Female : 1940 Indication for Surgery 79 year old lady, a patient of Dr. Avtar Moeller, admitted 08/25/20 with a LEFT anterior distal leg wound which occurred after fall 08/22/20. Notably, she is on Coumadin. 08/25/20 FERNIE RIGHT NC, LEFT NC. 08/25/20 BLE arterial duplex RIGHT mSFA/Nelson <75% stenosis, LEFT PT >75% stenosis. She presents today for arteriogram with LEFT leg debridement and all indicated procedures. *Preoperative Diagnosis LEFT anterior distal leg wound LEFT PT stenosis *Postoperative Diagnosis LEFT anterior distal leg wound LEFT PT occlusion - distal *Operation RIGHT RIGGING UP WORKER access - ultrasound guided Aortogram with LEFT lower extremity run-off LEFT PT angioplasty ([id number] Nanocross) LEFT peroneal angioplasty (2.5-1b859py Nanocross) RIGHT RIGGING UP WORKER closure (Angioseal) LEFT leg debridement *Surgeon Elie Verde MD Anesthesia MAC *Estimated Blood Loss Minimal *Findings By aortogram, the distal abdominal aorta is patent. On the RIGHT, the common iliac (NILAY), internal iliac (IIA) and external iliac (EIA) arteries are patent. Beyond this point, the vasculature was not specifically interrogated. On the LEFT, the NILAY, IIA and EIA are patent. The common femoral (RIGGING UP WORKER) artery is patent dividing into the profunda femoral (PFA) and superficial femoral (SFA) arteries. The SFA continues into the above-knee popliteal (AKP) which is patent. The below-knee popliteal (BKP) divides and the trifurcation is visualized. The anterior tibial (AT) is patent and is the dominant run-off of the leg. The posterior tibial (PT) and peroneal arteries originate off the BKP. There is a 80% stenosis at the origin of the PT which then tapers to an occlusion in the mid leg. The peroneal is a diminutive vessel. The AT continues onto the foot as the DP while the distal PT occludes without visualization of the plantar artery. The plantar arch is partially visualized ([place] IIA). *Specimen None Complications None Technique The patient was placed supine on the labor relations supervisor table and the BILATERAL groins and LEFT leg were prepped and draped in usual sterile fashion. The patient was identified as SKYLER MONTOYA by the entire procedural team as per time out protocol. Next, local anesthetic was infiltrated into the groin region. The RIGHT RIGGING UP WORKER was accessed in retrograde fashion under ultrasound guidance using micropuncture technique and a 5Fr sheath was installed. Next, an Omni flush catheter was advanced into the infrarenal aorta and an aortogram was obtained; see above. Next, the catheter and 035/260 glide advantage wire (GAW) were directed up-and-over into the LEFT RIGGING UP WORKER and additional run-off views were obtained in station; see above. Next, the sheath was upsized to a 6Fr/45cm destination sheath which was positioned in the LEFT RIGGING UP WORKER. The patient was then systemically heparinized. Next, the quick cross catheter was used to direct the 014/300 GAW into the PT which advances easily until the level of the malleolus with chronic occlusion distally. Next, the 2.5mm tapered balloon was then used to angioplasty the PT with resolution of waisting seen at the origin of the PT. The wire and balloon were then directed into the peroneal for angioplasty. Completion angiogram demonstrates improved visualization of the PT and peroneal in the proximal and mid leg with tapering occlusion of the distal PT with trickle collaterals seen off the peroneal. The destination sheath was then exchanged over the wire for an Angioseal device which was deployed hemostatically. The LEFT leg was then exposed and the 15 blade was used to excise the eschar in the wound. An old hematoma was then evacuated in piecemeal fashion down to the level of the muscle. No overt bleeding was identified. Next, a fine layer of Nicky was applied to the wound which was then packed with a saline soaked gauze. An ABD pad and kerlix roll were applied to the wound. At the end of the case, the sponge and needle counts were reported as correct. Date of Service SN - Proc - Start Time: 08/26/20 13:15:00 (08/26/20 13:48:53) Electronically signed by [facility] Conversion Patient Care Assistant Cerner at 02/04/2023 2:09 PM CDT documented in this encounter Plan of Treatment Not on file documented as of this encounter Visit Diagnoses Not on filedocumented in this encounter Care Teams Hospital Admissions Officer Relationship Specialty Start Date End Date Jay Howell MD [address] [place] [phone] PCP - General Emergency Medicine 11/12/23 documented as of this encounter
--- OUTSIDE RECORDS SUMMARY | 2025-07-12 08:40 | XMS_ITS | Encounter Summary ---
Author Organization [employer] ([place], [place], [place], [place]) Address [address] [place] [address] Care Team Providers Care Associate Media Planner Name Role Phone Jay Howell MD Primary Care Provider [phone] Encounter Details Date Type Department Care Team (Late st Contact Info) Description 08/26/2020 Transcribed Document [facility] [place] Family Medicine [address] [place] [address] ProviderJessie MD [address] [place] [address] Social History Tobacco Use Types Packs/Day Years Used Date Smoking Tobacco: Never Assessed Comments Unknown Sex and Gender Information Value Date Recorded Sex Assigned at Not on file Legal Sex Female 7:30 PM CDT Gender Identity Not on file Sexual Orientation Not on file documented as of this encounter Miscellaneous Notes * Cerner Conversion Note - Historical ProviderMD - 08/26/2020 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 Dr. Verde decided to do angio and debridement and she was in OR. will follow tomorrow and RN can all with any concerns need to discuss renal lesions with patient. monitor plt count MRI noted documented in this encounter Plan of Treatment Not on file documented as of this encounter Visit Diagnoses Not on filedocumented in this encounter Care Teams Associate Media Planner Relationship Specialty Start Date End Date Jay Howell MD [address] [place] [phone] PCP - General Emergency Medicine 11/12/23 documented as of this encounter
--- OUTSIDE RECORDS SUMMARY | 2025-07-12 08:40 | XMS_ITS | Encounter Summary ---
Author Organization [email or web address] ([place], [place], [place], [place]) Address [address] [place] [address] Care Team Providers Care Copy Lathe Tender Name Role Phone Jay Howell MD Primary Care Provider [phone] Encounter Details Date Type Department Care Team (Late st Contact Info) Description 08/26/[address] 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 Name: SKYLER MONTOYAO.B./Sex: 1940 Female Med Rec #: [id number] Physician: BETH DAVALOS MD-INT Financial #: [id number] Pt. Type: I Room/Bed: [facility]/ Admit/Disch: 08/25/20 05:53:00 - Institution: [facility] IntraOp Case Attendance Entry 1 Entry 2 Entry 3 Case Attendee KAELA HEBERT MD GRAFF, WAYNE B, MD-GABY INIGUEZ CRNA Role Performed Surgeon/Proceduralist, Anesthesiologist of LEAD BUSINESS ANALYST/Nurse Survey Research Associate First Record Time In 08/26/20 13:00:00 08/26/20 13:00:00 08/26/20 13:00:00 Time Out 08/26/20 14:23:00 08/26/20 14:23:00 08/26/20 14:23:00 Procedure Wound Debridement Lower Wound Debridement Lower Wound Debridement Lower Extremity(Left), Extremity(Left), Extremity(Left), Aortogram Abdominal Aortogram Abdominal Aortogram Abdominal with Runoff(Left), with Runoff(Left), with Runoff(Left), Angioplasty Angioplasty Angioplasty Percutaneous Percutaneous Percutaneous Transluminal(Left) Transluminal(Left) Transluminal(Left) Other Attendee Superficial Wound Closed By: Last Modified By: Radha Medrano RN Napier, Elizabeth A, RN Napier, Elizabeth A, RN 08/26/20 14:32:23 08/26/20 14:32:23 08/26/20 14:32:23 Entry 4 Entry 5 Entry 6 Case Attendee OTHER, ATTENDEE #1 Radha Medrano, Saray Linton ST Role Performed Student Facilitator, First Scrub, First Time In 08/26/20 13:00:00 08/26/20 13:00:00 08/26/20 13:00:00 Time Out 08/26/20 14:23:00 08/26/20 14:23:00 08/26/20 13:50:00 Procedure Wound Debridement Lower Wound Debridement Lower Wound Debridement Lower Extremity(Left), Extremity(Left), Extremity(Left), Aortogram Abdominal Aortogram Abdominal Aortogram Abdominal with Runoff(Left), with Runoff(Left), with Runoff(Left), Angioplasty Angioplasty Angioplasty Percutaneous Percutaneous Percutaneous Transluminal(Left) Transluminal(Left) Transluminal(Left) Other Attendee Kylee CALHOUN Superficial Wound Closed By: Last Modified By: Radha Medrano RN Napier, Elizabeth A, RN Napier, Elizabeth A, RN 08/26/20 14:32:23 08/26/20 14:32:23 08/26/20 14:32:23 Entry 7 Entry 8 Entry 9 Case Attendee LUNA RIGGINS OTHER, ATTENDEE #2 OTHER, ATTENDEE #3 Role Performed Scrub, First Bus Driver School Bus Driver School Time In 08/26/20 13:00:00 08/26/20 13:00:00 08/26/20 13:00:00 Time Out 08/26/20 13:50:00 08/26/20 14:23:00 08/26/20 14:23:00 Procedure Wound Debridement Lower Wound Debridement Lower Wound Debridement Lower Extremity(Left), Extremity(Left), Extremity(Left), Aortogram Abdominal Aortogram Abdominal Aortogram Abdominal with Runoff(Left), with Runoff(Left), with Runoff(Left), Angioplasty Angioplasty Angioplasty Percutaneous Percutaneous Percutaneous Transluminal(Left) Transluminal(Left) Transluminal(Left) Other Attendee LUNCH RELIEF Jeanna MICHELLE Superficial Wound Closed By: Last Modified By: Radha Medrano RN Napier, Elizabeth A, RN Napier, Elizabeth A, RN 08/26/20 14:32:23 08/26/20 14:32:23 08/26/20 14:32:23 Entry 10 Case Attendee Jos Ledezma, Remarketing Rep Role Performed Scrub, First Time In 08/26/20 13:50:00 Time Out 08/26/20 14:23:00 Procedure Wound Debridement Lower Extremity(Left), Aortogram Abdominal with Runoff(Left), Angioplasty Percutaneous Transluminal(Left) Other Attendee Superficial Wound Closed By: Last Modified By: Radha Medrano RN 08/26/20 14:32:23 [facility] IntraOp Case Attendance Audit 08/26/20 14:32:23 Plant Pathology Teacher: AMAN Modifier: AMAN 1 <+> Time Out 1 <*> Procedure Wound Debridement Lower Extremity(Left), Aortogram Abdominal with Runoff(Left), Angioplasty Percutaneous Transluminal(Left) 2 <+> Time Out 2 <*> Procedure Wound Debridement Lower Extremity(Left), Aortogram Abdominal with Runoff(Left), Angioplasty Percutaneous Transluminal(Left) 3 <+> Time Out 3 <*> Procedure Wound Debridement Lower Extremity(Left), Aortogram Abdominal with Runoff(Left), Angioplasty Percutaneous Transluminal(Left) 4 <+> Time Out 4 <*> Procedure Wound Debridement Lower Extremity(Left), Aortogram Abdominal with Runoff(Left), Angioplasty Percutaneous Transluminal(Left) 5 <+> Time Out 5 <*> Procedure Wound Debridement Lower Extremity(Left), Aortogram Abdominal with Runoff(Left), Angioplasty Percutaneous Transluminal(Left) 6 <*> Procedure Wound Debridement Lower Extremity(Left), Aortogram Abdominal with Runoff(Left), Angioplasty Percutaneous Transluminal(Left) 7 <*> Procedure Wound Debridement Lower Extremity(Left), Aortogram Abdominal with Runoff(Left), Angioplasty Percutaneous Transluminal(Left) 8 <+> Time Out 8 <*> Procedure Wound Debridement Lower Extremity(Left), Aortogram Abdominal with Runoff(Left), Angioplasty Percutaneous Transluminal(Left) 9 <+> Time Out 9 <*> Procedure Wound Debridement Lower Extremity(Left), Aortogram Abdominal with Runoff(Left), Angioplasty Percutaneous Transluminal(Left) 10 <+> Time Out 10 <*> Procedure Wound Debridement Lower Extremity(Left), Aortogram Abdominal with Runoff(Left), Angioplasty Percutaneous Transluminal(Left) 08/26/20 13:55:12 Plant Pathology Teacher: EANAPIER Modifier: EANAPIER 6 <+> Time Out 6 <*> Procedure Wound Debridement Lower Extremity(Left), Aortogram Abdominal with Runoff(Left), Angioplasty Percutaneous Transluminal(Left) 7 <+> Time Out 7 <*> Procedure Wound Debridement Lower Extremity(Left), Aortogram Abdominal with Runoff(Left), Angioplasty Percutaneous Transluminal(Left) <+> 10 Case Attendee <+> 10 Role Performed <+> 10 Time In <+> 10 Procedure 08/26/20 13:49:11 Plant Pathology Teacher: EANAPIER Modifier: EANAPIER 1 <*> Procedure Wound Debridement Lower Extremity(Left), Aortogram Abdominal with Runoff(Left) 2 <*> Procedure Wound Debridement Lower Extremity(Left), Aortogram Abdominal with Runoff(Left) 3 <*> Procedure Wound Debridement Lower Extremity(Left), Aortogram Abdominal with Runoff(Left) 4 <*> Procedure Wound Debridement Lower Extremity(Left), Aortogram Abdominal with Runoff(Left) 5 <*> Procedure Wound Debridement Lower Extremity(Left), Aortogram Abdominal with Runoff(Left) 6 <*> Procedure Wound Debridement Lower Extremity(Left), Aortogram Abdominal with Runoff(Left) 7 <*> Procedure Wound Debridement Lower Extremity(Left), Aortogram Abdominal with Runoff(Left) 8 <*> Procedure Wound Debridement Lower Extremity(Left), Aortogram Abdominal with Runoff(Left) 9 <*> Procedure Wound Debridement Lower Extremity(Left), Aortogram Abdominal with Runoff(Left) 08/26/20 13:47:56 Plant Pathology Teacher: EANAPIER Modifier: EANAPIER 1 <*> Procedure Wound Debridement Lower Extremity(Left) 2 <*> Procedure Wound Debridement Lower Extremity(Left) 3 <*> Procedure Wound Debridement Lower Extremity(Left) 4 <*> Procedure Wound Debridement Lower Extremity(Left) 5 <*> Procedure Wound Debridement Lower Extremity(Left) 6 <*> Procedure Wound Debridement Lower Extremity(Left) 7 <*> Procedure Wound Debridement Lower Extremity(Left) 8 <*> Procedure Wound Debridement Lower Extremity(Left) 9 <*> Procedure Wound Debridement Lower Extremity(Left) 08/26/20 13:38:05 Plant Pathology Teacher: EANAPIER Modifier: EANAPIER <+> 1 Time In <+> 1 Procedure 2 <+> Time In 2 <*> Procedure Wound Debridement Lower Extremity(Left) 3 <+> Time In 3 <*> Procedure Wound Debridement Lower Extremity(Left) 4 <+> Time In 4 <*> Procedure Wound Debridement Lower Extremity(Left) 5 <+> Time In 5 <*> Procedure Wound Debridement Lower Extremity(Left) 6 <+> Time In 6 <*> Procedure Wound Debridement Lower Extremity(Left) 7 <+> Time In 7 <*> Procedure Wound Debridement Lower Extremity(Left) 8 <+> Time In 8 <*> Procedure Wound Debridement Lower Extremity(Left) 9 <+> Time In 9 <*> Procedure Wound Debridement Lower Extremity(Left) [facility] IntraOp Case Times Entry 1 Patient In Room Time 08/26/20 13:00:00 Out Room Time 08/26/20 14:23:00 Anesthesia Start Time 08/26/20 13:00:00 Stop Time 08/26/20 14:23:00 Surgery / Procedure Times Start Time 08/26/20 13:15:00 Stop Time 08/26/20 14:10:00 Last Modified By: Radha Medrano RN 08/26/20 14:22:56 [facility] IntraOp Case Times Audit 08/26/20 14:22:56 Plant Pathology Teacher: EANAPIER Modifier: EANAPIER <+> 1 Out Room Time <+> 1 Stop Time 08/26/20 14:14:55 Plant Pathology Teacher: EANAPIER Modifier: EANAPIER <+> 1 Stop Time [facility] IntraOp Cautery Entry 1 ESU Identification Cautery Type Monopolar ESU ID Number [id number] ID Type Hospital Number Cautery Settings Cut Setting 30 Coag Setting 30 ESU Grounding Pad Ground Pad Type Adult Grounding Pad Site Right Upper Abdomen Grounding Pad Radha Medrano RN Applied By Grounding Pad Site Warm, dry and intact Skin Condition Before Cautery Grounding Pad Site Unchanged Skin Condition After Cautery Last Modified By: Radha Medrano RN 08/26/20 13:46:51 [facility] IntraOp Communication Entry 1 Communication To Other Comment [facility] REPORT Communication By Radha Medrano RN Date and Time 08/26/20 14:17:00 Last Modified By: Radha Medrano RN 08/26/20 14:16:35 [facility] IntraOp Counts Verification Entry 1 Procedure Wound Debridement Lower Extremity(Left), Aortogram Abdominal with Runoff(Left), Angioplasty Percutaneous Transluminal(Left) Count Info Count Type Sponge, Sharps, Miscellaneous Counts Verification Baseline/pre-procedure Sequence Count Results Not Applicable Counts Performed By Count Performed By LUNA RIGGINS (Scrub) Count Performed By Radha Medrano RN (RN) Last Modified By: Radha Medrano RN 08/26/20 13:49:13 [facility] IntraOp Counts Verification Audit 08/26/20 13:49:13 Plant Pathology Teacher: EANAPIER Modifier: EANAPIER 1 <*> Procedure Wound Debridement Lower Extremity(Left), Aortogram Abdominal with Runoff(Left) 08/26/20 13:47:59 Plant Pathology Teacher: EANAPIER Modifier: EANAPIER 1 <*> Procedure Wound Debridement Lower Extremity(Left) [facility] IntraOp Counts Final Entry 1 Procedure Wound Debridement Lower Extremity(Left), Aortogram Abdominal with Runoff(Left), Angioplasty Percutaneous Transluminal(Left) Final Count Info Count Type Sponge, Sharps, Miscellaneous Counts Verification Skin Closure/end of Sequence procedure Count Results Correct, surgeon notified Counts Performed By Count Performed By Jos Ledezma Surgical (Scrub) Freight Handler Count Performed By Radha Medrano RN (RN) Last Modified By: Radha Medrano RN 08/26/20 14:24:36 [facility] IntraOp Counts Final Audit 08/26/20 14:24:36 Plant Pathology Teacher: LOVELYPIOMAYRA Modifier: EANAPIER 1 <*> Procedure Wound Debridement Lower Extremity(Left), Aortogram Abdominal with Runoff(Left), Angioplasty Percutaneous Transluminal(Left) 1 <+> Count Results 1 <+> Count Performed By (Scrub) 1 <+> Count Performed By (RN) 08/26/20 13:49:14 Plant Pathology Teacher: LOVELYPIOMAYRA Modifier: EANAPIER 1 <*> Procedure Wound Debridement Lower Extremity(Left), Aortogram Abdominal with Runoff(Left) 08/26/20 13:48:01 Plant Pathology Teacher: LOVELYPIOMAYRA Modifier: EANAPIER 1 <*> Procedure Wound Debridement Lower Extremity(Left) [facility] IntraOp Cultures and Spec Summary Entry 1 Cultrures and Specimens Specimen Ordered: Yes Test(s) Culture(s)/Microbiology Requested/Final Disposition Last Modified By: Radha Medrano RN 08/26/20 13:56:41 General Comments: LEFT ANTERIOR LEG WOUND. [facility] IntraOp Departure from OR Entry 1 Integumentary Assessment Integumentary WDL Assessment WDL Transfer/Handoff Transfer to PACU Phase II Handoff Method Phone call Post-op Transport Stretcher/Gurney Via Patient Transport Radha Medrano RN Accompanied by Transfer/Handoff PT TRANSPORTED TO [facility], PT STABLE Last Modified By: Radha Medrano RN 08/26/20 14:24:24 General Comments: [id number] LALA RNTUNNEL DRIER OPERATOR [facility] IntraOp Dressing and Packing Entry 1 Type Dressing Wound Dressing Item Skin Closure Glue Applied By KAELA HEBERT MD Last Modified By: Radha Medrano RN 08/26/20 13:45:13 [facility] IntraOp Fire Risk Assessment Entry 1 Fire Info Surgical Site or 0- No Incision Above the Xyphoid Open O2 Source 1- Yes (Mask or Cannula) Available Ignition 1- Yes (ESU, Laser, Light Source) Fire Risk 2 Assessment Score Fire Score Fire Risk Yes Assessment Complete Fire Risk Radha Medrano RN Assessment Verified By Fire Risk 08/26/20 13:00:00 Assessment Verified Date/Time Fire Risk Last Modified By: Radha Medrano RN 08/26/20 13:40:08 [facility] IntraOp 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 [employer] 1 Case Information OR OR 20 [facility] Case Level 1 Room Verified Yes Wound Class II - Clean-Contaminated Specialty SN Endovascular Anesthesia Type MAC ASA Class 4 Diagnosis Preop Diagnosis LEFT LEG WOUND Postop Same As Preop No Postop Diagnosis SEE MD NOTE Last Modified By: Radha Medrano RN 08/26/20 13:44:53 [facility] IntraOp Implant Log Entry 1 Type Implant (Synthetic) Implant Log Implant DEVICE CLSR ANGIO-SEAL Identification [facility] [id number] Description Implant Quantity 1 Implant Site RIGHT Implant [id number] Identification Lot Number Implant [facility] Med:Cardiac Surg Identification [employer] Name: Implant [id number] Identification Catalog Number Implant Has an Yes Expiration Date Implant Expiration 06/16/21 Date Tissue Implant Last Modified By: Radha Medrano RN 08/26/20 14:23:44 [facility] IntraOp Intraoperative Assessment Entry 1 Handoff Method Phone call Valid History / Yes Physical in Chart Preoperative Yes Checklist Reviewed/Evaluated Allergies Reviewed Yes Patient is Latex No Sensitive Isolation Not applicable Precautions Noted Level of WDL Consciousness (WDL = Alert, Oriented to Person, Place, and Time) Skin Assessment No Verified Present Upon IVs, Oxygen Arrival to OR Last Modified By: Radha Medrano RN 08/26/20 13:44:22 [facility] IntraOp Intraoperative Equipment Entry 1 Type Monitoring Equipment Intraop Monitoring Electrocardiogram Three lead placement (ECG) Electrode Placement Blood Pressure Non-Invasive BP Device Source Blood Pressure Arm, right upper Location Pulse Oximeter Hand, left Probe Site Antiembolic Devices Scopes Photo/Video Documentation Last Modified By: Radha Medrano RN 08/26/20 13:43:20 [facility] IntraOp Medication Admin Entry 1 Entry 2 Entry 3 Medication/Irrigant PRM-LB VISIPAQUE 320MG lidocaine 1% 10mg/1ml COMBO heparin in NS [id number] 50ml vial - [id number] flush 2000units/1000ml --[id number] Combo Med List Time Administered Route of Administration Dose Dose 320 2000 Unit of Measure mg units Volume Administered By KAELA HEBERT MD MENES, KEITH, MD MENES, KEITH, MD Procedure Irrigation Irrigant Volume In Irrigant Volume Out Last Modified By: Radha Medrano RN Napier, Elizabeth A, RN Napier, Elizabeth A, RN 08/26/20 13:42:30 08/26/20 13:42:30 08/26/20 13:42:30 [facility] IntraOp Patient Positioning Entry 1 Procedure Wound Debridement Lower Extremity(Left), Aortogram Abdominal with Runoff(Left), Angioplasty Percutaneous Transluminal(Left) Body Position Supine Left Arm Position Tucked and padded at side Right Arm Position Tucked and padded at side Left Leg Position Uncrossed, parallel Right Leg Position Uncrossed, parallel Feet Uncrossed Yes Pressure Points Yes Checked Positioning Devices Head Rest, Pad, Arm, Safety Strap, Thighs Positioned By Radha Medrano RN, KAELA HEBERT MD, OTHER, ATTENDEE #1 Position Verified Positioning Yes Verified by Anesthesia Positioning Yes Verified by Surgeon Last Modified By: Radha Medrano RN 08/26/20 13:49:13 [facility] IntraOp Patient Positioning Audit 08/26/20 13:49:13 Plant Pathology Teacher: EANAPIER Modifier: EANAPIER 1 <*> Procedure Wound Debridement Lower Extremity(Left), Aortogram Abdominal with Runoff(Left) 08/26/20 13:48:00 Plant Pathology Teacher: EANAPIER Modifier: EANAPIER 1 <*> Procedure Wound Debridement Lower Extremity(Left) [facility] IntraOp Sign In Entry 1 Patient, Site, Yes Procedure Identified Surgical Consent Yes Confirmed Relevant Surgical Yes Documents Available Surgical Site Yes Marked by person performing procedure Anesthesia Machine Yes Check Completed Medication Checks Yes Completed Allergies Yes Airway Difficult No Airway/Aspiration Risk Difficult Yes Airway/Aspiration Intervention Equipment Available Blood Loss Risk No Blood Loss Yes Intervention Equipment Prepared and Ready Blood Identifiers Not applicable Verified Per Policy Hypothermia Risk No Warming Measures Yes Taken Last Modified By: Radha Medrano RN 08/26/20 13:31:46 [facility] IntraOp Sign Out Entry 1 RN Confirmation Surgical Yes Procedure(s) Identified Instrument, Sponge Yes and Sharps Counts Correct/Documented Equipment Problems N/A Documented Specimen Labeled Yes Correctly Urinary Catheter N/A Documented in IView Angel Patient Yes Recovery Concerns Reviewed with Anesthesia Provider, Surgeon and RN Angel Patient Yes Management Concerns Reviewed with Anesthesia Provider, Surgeon and RN Safety Checklist Yes Elements Complete? RN Sign Out Radha Medrano RN Signature RN Sign Out 08/26/20 14:33:00 Signature Date/Time Plan of Care Outcome - Fire Risk OUTCOME STATEMENT: Goal met Patient is free from injury related to surgical fire Plan of Care Outcome - Pt Positioning OUTCOME STATEMENT: Goal met Absence of signs and symptoms of positioning injury. Plan of Care Outcome - Skin Prep OUTCOME STATEMENT: Goal met Intraoperative care is consistent with measures to prevent infection Plan of Care Outcome - Xray/Images OUTCOME STATEMENT: Goal met Absence of observable signs or symptoms of radiation injury Plan of Care Outcome - Counts OUTCOME STATEMENT: Goal met Absence of signs and symptoms of injury related to extraneous objects Last Modified By: Radha Medrano RN 08/26/20 14:32:44 [facility] IntraOp Sign Out Audit 08/26/20 14:32:44 Plant Pathology Teacher: AMAN Modifier: AMAN 1 <*> Specimen Labeled Correctly N/A 1 <+> RN Sign Out Signature 1 <+> RN Sign Out Signature Date/Time [facility] IntraOp Skin Prep Entry 1 Procedure Wound Debridement Lower Extremity(Left), Aortogram Abdominal with Runoff(Left), Angioplasty Percutaneous Transluminal(Left) Prescribed N/A Pre-Surgical Prep Completed Prep Area BILATERAL GROINS, LEFT LOWER LEG Intraop Prep Prep Agents Chloraprep Prep by Radha Medrano RN Hair Removal Methods No hair removal performed Last Modified By: Radha Medrano RN 08/26/20 13:49:14 [facility] IntraOp Skin Prep Audit 08/26/20 13:49:14 Plant Pathology Teacher: AMAN Modifier: REGINANAPIER 1 <*> Procedure Wound Debridement Lower Extremity(Left), Aortogram Abdominal with Runoff(Left) 08/26/20 13:48:00 Plant Pathology Teacher: AMAN Modifier: LOVELYPIER 1 <*> Procedure Wound Debridement Lower Extremity(Left) [facility] IntraOp Surgical Procedures Entry 1 Entry 2 Entry 3 Procedure Wound Debridement Lower Aortogram Abdominal Angioplasty Extremity with Runoff Percutaneous Transluminal Modifiers Left Left Left Additional (LT LOWER EXTREMTIY Procedure WOUND DEBRIDEMENT, Description AORTAGRAM WITH ANGIOPLASTY OF PT, TPT, PERINEAL. Primary Procedure Yes No No Primary Surgeon KAELA HEBERT MD MENES, KEITH, MD MENES, KEITH, MD Start 08/26/20 13:15:00 08/26/20 13:15:00 08/26/20 13:15:00 Stop 08/26/20 14:10:00 08/26/20 14:10:00 08/26/20 14:10:00 Physician States Cecum Reached Anesthesia Type MAC MAC MAC Specialty SN Endovascular SN Endovascular SN Endovascular Wound Class II - Clean-Contaminated II - Clean-Contaminated II - Clean-Contaminated Last Modified By: Radha Medrano RN Napier, Elizabeth A, RN Napier, Elizabeth A RN 08/26/20 14:22:50 08/26/20 14:22:50 08/26/20 14:22:50 [facility] IntraOp Surgical Procedures Audit 08/26/20 14:22:50 Plant Pathology Teacher: AMAN Modifier: REGINANAPIER 1 <*> Procedure Wound Debridement Lower Extremity 1 <+> Stop <+> 2 Stop <+> 3 Stop 08/26/20 13:56:00 Plant Pathology Teacher: LOVELYPIOMAYRA Modifier: EANAPIER 1 <*> Procedure Wound Debridement Lower Extremity 1 <*> Additional Procedure Description (LT LOWER EXTREMTIY WOUND DEBRIDEMENT WITH WOUND VAC) 08/26/20 13:48:53 Plant Pathology Teacher: EANAPIER Modifier: EANAPIER <+> 3 Procedure <+> 3 Primary Procedure <+> 3 Modifiers <+> 3 Primary Surgeon <+> 3 Specialty <+> 3 Start <+> 3 Wound Class <+> 3 Anesthesia Type 08/26/20 13:47:52 Plant Pathology Teacher: EANAPIER Modifier: EANAPIER <+> 2 Procedure <+> 2 Primary Procedure <+> 2 Modifiers <+> 2 Primary Surgeon <+> 2 Specialty <+> 2 Start <+> 2 Wound Class <+> 2 Anesthesia Type 08/26/20 13:43:42 Plant Pathology Teacher: EANAPIER Modifier: EANAPIER 1 <*> Procedure Wound Debridement Lower Extremity 1 <+> Specialty 1 <*> Anesthesia Type General [facility] IntraOP Time Out Entry 1 Procedure to be Wound Debridement Lower Performed Extremity(Left), Aortogram Abdominal with Runoff(Left), Angioplasty Percutaneous Transluminal(Left) Time Out Time Out Pause Time 08/26/20 13:15:00 All activity Yes suspended (unless life threatening emergency) Team Verbally Correct patient Confirms Information identity, Correct side and site are marked, Consent form is present and accurate, Agreement on the procedure to be done, Correct patient position, Relevant images/results properly labeled/appropriately displayed, Confirm antibiotics have been administered, Confirm the skin prep has dried, Confirm prosthesis/implant/devic e is present, Performed in location of procedure after prepped/draped Antibiotic Yes Prophylaxis Administered Or In Progress Within the Last 60 Minutes Beta Sanjuana N/A Administered Venous N/A Thromboembolism Prophylaxis Required Anticipated Critical Events Surgeon None expected Anesthesia Provider Patient specific concerns Nursing Assures Sterility of instruments, Equipment concerns or issues, Implant Availability Essential Imaging Yes Labeled and Displayed Last Modified By: Radha Medrano RN 08/26/20 13:49:14 [facility] IntraOP Time Out Audit 08/26/20 13:49:14 Plant Pathology Teacher: AMAN Modifier: EANAPIER 1 <*> Procedure to be Performed Wound Debridement Lower Extremity(Left), Aortogram Abdominal with Runoff(Left) 08/26/20 13:48:01 Plant Pathology Teacher: REGINANAPIER Modifier: EANAPIER 1 <*> Procedure to be Performed Wound Debridement Lower Extremity(Left) [facility] IntraOp X-Ray and Images Entry 1 X-Ray/Imaging Type Fluoroscopy Fluoroscopy Type C-Arm Protective Devices Yes Used Exposure Time 9.5 MINUTES Last Modified By: Radha Medrano RN 08/26/20 14:15:27 Case Comments <None> Finalized By: YULIANA ORTIZ Document Signatures Signed By: Radha Medrano RN 08/26/20 14:32 YULIANA ORTIZ 08/28/20 09:26 Unfinalized History Date/Time Username Reason for Unfinalizing Freetext Reason for Unfinalizing 08/28/20 09:23 [id number] Correct Billing Electronically signed by Sivan [facility] Conversion Inspector Screen Printing Cerner at 02/04/2023 2:03 PM CDT documented in this encounter Plan of Treatment Not on file documented as of this encounter Visit Diagnoses Not on filedocumented in this encounter Care Teams Copy Lathe Tender Relationship Specialty Start Date End Date Jay Howell MD [address] [place] [phone] PCP - General Emergency Medicine 11/12/23 documented as of this encounter
--- OUTSIDE RECORDS SUMMARY | 2025-07-12 08:40 | XMS_ITS | Encounter Summary ---
Author Organization [employer] ([place], [place], [place], [place]) Address [address] [place] [address] Care Team Providers Care Timber Management Technician Name Role Phone Jay Howell MD Primary Care Provider [phone] Encounter Details Date Type Department Care Team (Late st Contact Info) Description 03/18/2021 Transcribed Document [facility] [place] [facility] [place] [address] ProviderJessie MD [address] [place] [address] [phone] Social History Tobacco Use Types Packs/Day Years Used Date Smoking Tobacco: Never Assessed Comments Unknown Sex and Gender Information Value Date Recorded Sex Assigned at Not on file Legal Sex Female 7:30 PM CDT Gender Identity Not on file Sexual Orientation Not on file documented as of this encounter Miscellaneous Notes * Cerner Conversion Note - Jessie ProviderMD - 03/18/2021 2:00 AM CDT Insurance Claims Assistant Details Entered On: 03/18/2021 7:00 EDT Performed On: 03/18/2021 2:00 EDT by Sarah Vivar Non Emp RN Order Details Transport Mode Order Detail : Wheelchair Isolation Precautions Order Detail : Standard Precautions Order Detail : N/A IV Order Detail : 1 Oxygen Order Detail : 1 Nurse Collect Order Detail : 0 Lift/Transfer : Moderate assist Central Line Order Detail : No Room Service : Appropriate Arterial Line : No Patient Needs Meds Crushed/Liquid : No Sarah Vivar Non Emp RN - 03/18/2021 7:00 EDT Electronically signed by Sivan [facility] Conversion Acid Extractor Cerner at 02/04/2023 2:06 PM CDT documented in this encounter Plan of Treatment Not on file documented as of this encounter Visit Diagnoses Not on filedocumented in this encounter Care Teams Timber Management Technician Relationship Specialty Start Date End Date Jay Howell MD [address] [place] [phone] PCP - General Emergency Medicine 11/12/23 documented as of this encounter
--- OUTSIDE RECORDS SUMMARY | 2025-07-12 08:40 | XMS_ITS | Encounter Summary ---
Author Organization [employer] ([place], [place], [place], [place]) Address [address] [place] [address] Care Team Providers Care City Mail Carrier Name Role Phone Jay Howell MD Primary Care Provider [phone] Encounter Details Date Type Department Care Team (Late st Contact Info) Description 08/26/2020 Transcribed Document [facility] [place] Family Medicine [address] [place] [address] ProviderJessie MD [address] [place], [place] [id number] Social History Tobacco Use Types Packs/Day Years Used Date Smoking Tobacco: Never Assessed Comments Unknown Sex and Gender Information Value Date Recorded Sex Assigned at Not on file Legal Sex Female 7:30 PM CDT Gender Identity Not on file Sexual Orientation Not on file documented as of this encounter Miscellaneous Notes * Cerner Conversion Note - Historical ProviderMD - 08/26/2020 2:00 AM SCHEDULING AGENT Benefits Consultant Details Entered On: 08/26/2020 2:00 EST Performed On: 08/26/2020 2:00 EST by Kervin Kulkarni RN Order Details Isolation Precautions Order Detail : Standard Precautions Order Detail : N/A IV Order Detail : 1 Oxygen Order Detail : 0 Lift/Transfer : Independent Room Service : Not Appropriate Patient Needs Meds Crushed/Liquid : No Kervin Kulkarni RN - 08/26/2020 1:56 EST Electronically signed by Sivan [facility] Conversion Vacuum Drum Drier Operator Cerner at 02/04/2023 2:10 PM CDT documented in this encounter Plan of Treatment Not on file documented as of this encounter Visit Diagnoses Not on filedocumented in this encounter Care Teams City Mail Carrier Relationship Specialty Start Date End Date Jay Howell MD [address] [place] [phone] PCP - General Emergency Medicine 11/12/23 documented as of this encounter
--- OUTSIDE RECORDS SUMMARY | 2025-07-12 08:40 | XMS_ITS | Encounter Summary ---
Author Organization [employer] ([place], [place], [place], [place]) Address [address] [place] [address] Care Team Providers Care Circuit Rider Name Role Phone Jay Howell MD Primary Care Provider [phone] Encounter Details Date Type Department Care Team (Late st Contact Info) Description 03/18/2021 Transcribed Document [facility] [place] [facility] [place] [address] ProviderJessie MD [address] [place] [address] [phone] Social History Tobacco Use Types Packs/Day Years Used Date Smoking Tobacco: Never Assessed Comments Unknown Sex and Gender Information Value Date Recorded Sex Assigned at Not on file Legal Sex Female 7:30 PM CDT Gender Identity Not on file Sexual Orientation Not on file documented as of this encounter Miscellaneous Notes * Cerner Conversion Note - Historical ProviderMD - 03/18/2021 12:00 PM CDT Pain Assessment Entered On: 03/18/2021 17:56 EDT Performed On: 03/18/2021 15:01 EDT by EVA RICHARDSON RN Intervention Information: oxyCODONE Performed by EVA RICHARDSON RN on 03/18/2021 14:01:00 EDT oxyCODONE,5mg Oral Pain Assessment Pain Scale Goal : 5 Pain Improved by Intervention : Yes EVA RICHARDSON RN - 03/18/2021 17:56 EDT Electronically signed by Sivan [facility] Conversion Guard Dance Hall Cerner at 02/04/2023 2:21 PM CDT documented in this encounter Plan of Treatment Not on file documented as of this encounter Visit Diagnoses Not on filedocumented in this encounter Care Teams Circuit Rider Relationship Specialty Start Date End Date Jay Howell MD [address] [place] [phone] PCP - General Emergency Medicine 11/12/23 documented as of this encounter
--- OUTSIDE RECORDS SUMMARY | 2025-07-12 08:40 | XMS_ITS | Encounter Summary ---
Author Organization [employer] ([place], [place], [place], [place]) Address [address] [place] [address] Care Team Providers Care Director Of Home Economics Name Role Phone Jay Howell MD Primary Care Provider [phone] Encounter Details Date Type Department Care Team (Late st Contact Info) Description 03/18/2021 Transcribed Document [facility] [place] [facility] [place] [address] ProviderJessie MD [address] [place], [place] [phone] Social History Tobacco Use Types Packs/Day Years Used Date Smoking Tobacco: Never Assessed Comments Unknown Sex and Gender Information Value Date Recorded Sex Assigned at Not on file Legal Sex Female 7:30 PM CDT Gender Identity Not on file Sexual Orientation Not on file documented as of this encounter Miscellaneous Notes * Cerner Conversion Note - Historical ProviderMD - 03/18/2021 5:00 AM CDT Chart Check - Review Order Profile Entered On: 03/18/2021 7:01 EDT Performed On: 03/18/2021 5:00 EDT by Sarah Vivar Non Emp RN Chart Check All Active Orders Reviewed : Yes Sarah Vivar Non Emp RN - 03/18/2021 7:01 EDT Electronically signed by Gayle Finnegan Conversion Research And Development Tester Cerner at 02/04/2023 2:04 PM CDT documented in this encounter Plan of Treatment Not on file documented as of this encounter Visit Diagnoses Not on filedocumented in this encounter Care Teams Director Of Home Economics Relationship Specialty Start Date End Date Jay Howell MD [address] [place] [phone] PCP - General Emergency Medicine 11/12/23 documented as of this encounter
--- OUTSIDE RECORDS SUMMARY | 2025-07-12 08:40 | XMS_ITS ---
Author Organization [facility] Care Team Providers Care Rn Teacher Name Role Phone Milana, Chencho Unavailable Unavailable Anjak, Ahmad Unavailable Unavailable Alhomsi, Baher Unavailable Unavailable Zacarias Burns Unavailable Unavailable Mtz, Chiang Unavailable Unavailable Hamed, Ceasar Unavailable Unavailable Andrew, Chiquita Unavailable Unavailable Casanova, Ely Unavailable Unavailable Tulimat, Mohammad Unavailable Unavailable Bunag, Bradley Unavailable Unavailable Urz, Yajaira Unavailable Unavailable Olson, Holley Unavailable Unavailable Calle, Caitlyn Unavailable Unavailable Allergies and adverse reactions Code CodeSystem Substance Reaction Severity StartDate Concern Status 7454 RXNORM Nitrofurantoin Unknown 04/09/2025 active 6387 RXNORM Lidocaine Unknown 04/09/2025 active Care Team Name Role Address Phone Organization Dates Chiquita Andrew PCP [address] [facility] [address], [address], [place] (Office): [facility] 06/10/2025 - present Chencho Cristinaanga [address], [place], [facility], [place] (Office): [facility] 06/10/2025 - present Ahmad Anjak [address] [place], [facility], [place] (Office): [facility] 06/10/2025 - present Consuelo Daltonsandeepjulio [address], [place], [address], [facility] (Office): : [facility] [place] 06/10/2025 - present Zacarias Bunrs [address] [facility], [place], [address], [facility] (Office): [facility] [place] 06/10/2025 - present Mariia Mtz [address] [facility], [place], [address], [facility] (Office): : : [facility] [place] 06/10/2025 - present Ceasar Conner [address] [facility] [address], [place], [address], [facility] (Office): : [facility] [place] 06/10/2025 - present Ely Casanova [address] [facility], [place], [address], [facility] (Office): : : [facility] [place] 06/10/2025 - present Aldo Edwarsd [address], [place], [address], [facility] (Office): : [facility] [place] 06/10/2025 - present Bradley Grijalva [facility] [place] 06/10/2025 - present Yajaira Galeas [address] [facility] [address], [address], [facility] (Office): : [facility] [place] 06/10/2025 - present Holley Simsrien [address] [facility], [place], [address], [facility] (Office): : [facility] 06/10/2025 - present Caitlyn Calle [address] [facility] [address], [place], [address], [facility] 06/10/2025 - present Imaging Narrative Note Date Imaging Narrative No te 06/16/2025 HIP UNI W OR W/O PEL VIS 2-3 V, LEFTSee NoteFINDINGS: There is a left intertrochanteric fracture with moderate callus formation bridged by an ORIF with components in satisfactory position. The femoral head is in alignment within acetabular fossa. The pubic rami are unremarkable. Surgical noelle are seen. Soft tissue swelling is seen. 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 Diffuse osseous demineralization is noted. Right hip arthroplasty is seen.CONCLUSION: Fixated left intertrochanteric fracture with moderate healing.ELECTRONICALLY SIGNED BY SURENDRA MURPHY D.O. 06/16/2025 4:16:51 PM EDT.Reason for Study: Z47.81 ENCOUNTER FOR ORTHOPEDIC AFTERCARE FOLLOWING SURGICAL AMPUTATIONPrincipal Result Rug Measurer: SURENDRA MURPHY ([id number])Computer Art Instructor: NELIA PLASENCIA ([facility])Panelbeater Computer Art Instructor: NAHED Goals Section Goals Description Status Target Date ADL's will be met AEB: neat, clean appearance, being free of body odor, and dressed in clothing appropriate for the season. Active 06/25/2025 Intentional weight loss duri ng periods of diuresis AEB weight within UBW Active 06/25/2025 Maintain weight AEB consiste nt weight pattern and consuming at least 50-75% of estimated energy requirements Active 06/25/20 25 Optimize intake AEB tolerati ng/accepting supplements or food interventions Active 06/25/2025 Pain will be controlled/relieved by/through the review date. Active 06/25/2025 Resident has bowel movement every three days through the review date. Active 06/25/2025 Resident skin will maintain/improve through revi ew date. Active 06/25/2025 Resident will continue to pursue individual leis ure activities. Active 06/25/2025 Signs/Symptoms of pain will be controlled/relieved by/through the review date. Active 06/25/2025 The Resident will show no de waller in visual function through the review date. Active 06/25/2025 The incision will show signs of healing and remain free from infection by/through the review date Active 06/25/2025 The resident will actively take part in programs of interest. Active 06/25/2025 The resident will be able to verbalize/communicate required assistance post-discharge and the services required to meet needs before discharge Active 06/25/2025 The resident will be free fr om complications of altered cardopulmonary problems through the review date Active 2024 The resident will be free fr om complications of cardiovascular/circulatory problems through the review date. Active 06/25/2025 The resident will be free fr om discomfort or adverse reactions related to anti-anxiety therapy through the review date. Active 06/25/2025 The resident will be free fr om discomfort or adverse reactions related to antidepressant therapy through the review date. Active 06/25/2025 The resident will be free of any discomfort or adverse side effects of diuretic therapy through the review date. Active 0 06/25/2025 The resident will be free of infection, pain or bleeding in the oral cavity through review date. Active 06/25/2025 The resident will be free of symptoms of dehydration and maintain moist mucous membranes, good skin turgor. Active 06/25/2025 The resident will have no co mplications related to diabetes through the review date. Active 06/25/2025 The resident will improve cu rrent level of function in ADL's through the review date. Active 06/25/2025 The resident will maintain c urrent level of function with ADL's through the review date. Active 06/25/2025 The resident will maintain intact skin through t he review date. Active 06/25/2025 The resident will maintain o ptimal quality of life within limitation imposed by visual function through the review date. Active 06/25/2025 The resident will maintain t he ability to seek social contact and stimulation through the review date. Active 06/25/2025 The resident will receive jose mahmood opportunities for social contact through the review date. Active 06/25/2025 The resident's risk of falls /injuries will be reduced through the review date. Active 06/25/2025 Functional Status Code Name Recorded Time Value Entered By Bathing 06/20/2025 Total Dependence izzy.[email or web address] en Immunizations Immunization Status Vaccine Details Vaccine Code CodeSystem Date Notes Influenza cancelled Influenza, high-dose, split virus, trivalent, injectable, preservative free 135 CVX created date: 06/12/2025 consent date: 06/10/2025 Influenza cancelled Influenza, high-dose, split virus, trivalent, injectable, preservative free 135 CVX created date: 04/09/2025 consent date: 04/09/2025 TB 2 Step Mantoux Skin Test completed tuberculin skin test; unspecified formulation lotNumber: [id number] Given intradermally Step 2 of Multi-step with next step required 98 CVX created date: 04/20/2025 consent date: 04/09/2025 administer ed date: 04/16/2025 TB 2 Step Mantoux Skin Test completed tuberculin skin test; unspecified formulation lotNumber: [id number] expiry: 06/17/2026 Mfg: PAR [employer]ace[employer] Given 0.1 ml Left Forearm intradermally Step 1 of Multi-step with next step required 98 CVX created date: 04/09/2025 consent date: 04/09/2025 administer ed date: 04/09/2025 Educated by on 04/20/2025 Pneumovax (PPSV23) completed pneumococcal polysaccharide vaccine, 23 valent 33 CVX created date: 04/10/2025 administer ed date: 09/28/2000 SARS-COV-2 (COVID-19) cancelled SARS-COV-2 (COVID-19) vaccine, mRNA, spike protein, LNP, preservative free, tc-sucrose, 30 mcg/0.3 mL dose 309 CVX created date: 04/09/2025 consent date: 04/09/2025 Educated by on 04/09/2025 Pneumovax (PCV20) cancelled Pneumococcal conjugate vaccine 20-valent (PCV20), polysaccharide [id number] conjugate, adjuvant, preservative free 216 CVX created date: 04/10/2025 consent date: 04/09/2025 Educated by on 04/10/2025 Medications Section Medication Name Status Code CodeSystem Dose Route Frequency Admin Type Sig Text Start Date End Date Tubersol Solution 5 UNIT/0.1ML complete d 157996 RXNORM 0.1 ml Intrade rmal every scrap iron cutter Routine Inject 0.1 ml intrad ermall y every scrap iron cutter every 365 day(s) for Mantou x Testin g for 1 Day Record on Immuni zation Record AND Inject 0.1 ml intrad ermall y every scrap iron cutter for Mantou x Testin g for 1 Day until finish ed Admini ster 2nd step 7 days after 1st step. Record on Immuni zation Record . 06/11 860311 RXNORM 0.1 ml Intrade rmal every scrap iron cutter Routine Inject 0.1 ml intrad ermall y every scrap iron cutter every 365 day(s) for Mantou x Testin g for 1 Day Record on Immuni zation Record AND Inject 0.1 ml intrad ermall y every scrap iron cutter for Mantou x Testin g for 1 Day until finish ed Admini ster 2nd step 7 days after 1st step. Record on Immuni zation Record . 06/18 Remedy Nutrashield Cream 1 % active RXNORM n/a n/a Topical every day and scrap iron cutter Routine Apply to megan area/b uttock s topica lly every day and scrap iron cutter for preven tion after incont inent episod e. SQL REPORT DEVELOPER may apply. 2024 - Lidocaine External Patch 4 % aborted 656476 4 RXNORM n/a n/a Topical one time a day Routine Apply to Left Thigh topica lly one time a day for ENCOUN TER FOR ORTHOP EDIC AFTERC ARE FOLLOW ING SURGIC AL AMPUTA and remove per schedu le 06/11 Latanoprost Ophthalmic Solution 0.005 % active 540008 RXNORM 1 drop Ophthal robb at bedtime Routine Instil l 1 drop in both eyes at bedtim e for UNSPEC IFIED GLAUCO MA (H40.9 ) 2024 - Nortriptyline HCl Oral Capsule 10 MG active 917354 RXNORM 1 capsul e Oral at bedtime Routine Give 1 capsul e by mouth at bedtim e for UNSPEC IFIED MOOD [AFFEC TIVE] DISORD ER (F39) 2024 - oxyCODONE HCl Oral Tablet 5 MG active 096776 1 RXNORM 1 tablet Oral as needed PRN Give 1 tablet by mouth every 4 hours as needed for ENCOUN TER FOR ORTHOP EDIC AFTERC ARE FOLLOW ING SURGIC AL AMPUTA AND Give 2 tablet by mouth every 4 hours as needed for ENCOUN TER FOR ORTHOP EDIC AFTERC ARE FOLLOW ING SURGIC AL AMPUTA 2024 - 283574 1 RXNORM 2 tablet Oral as needed PRN Give 1 tablet by mouth every 4 hours as needed for ENCOUN TER FOR ORTHOP EDIC AFTERC ARE FOLLOW ING SURGIC AL AMPUTA AND Give 2 tablet by mouth every 4 hours as needed for ENCOUN TER FOR ORTHOP EDIC AFTERC ARE FOLLOW ING SURGIC AL AMPUTA 2024 - Furosemide Oral Tablet 40 MG active 308706 RXNORM 1 tablet Oral as needed PRN Give 1 tablet by mouth every 24 hours as needed for Edema 2024 - Acetaminophen Oral Tablet 500 MG aborted 146192 RXNORM 2 tablet Oral as needed PRN Give 2 tablet by mouth every 8 hours as needed for Pain Not to exceed 3GM in 24H from ALL source s. 06/15 Antacid Ultra Strength Oral Tablet Chewable 1000 MG active 1 tablet Oral one time a day Routine Give 1 tablet by mouth one time a day for GASTRO -ESOPH AGEAL REFLUX DISEAS E WITHOU T ESOPHA GITIS (K21.9 ) 2024 - Carvedilol Oral Tablet 25 MG active 231221 RXNORM 1 tablet Oral two times a day Routine Give 1 tablet by mouth two times a day for UNSPEC IFIED ATRIAL FIBRIL LATION (I48.9 1) Hold for SBP < 110 or HR < 60 2024 - Pantoprazole Sodium Oral Tablet Delayed Release 40 MG active 376589 RXNORM 1 tablet Oral two times a day Routine Give 1 tablet by mouth two times a day for GASTRO -ESOPH AGEAL REFLUX DISEAS E WITHOU T ESOPHA GITIS (K21.9 ) 2024 - ALPRAZolam Oral Tablet 0.5 MG aborted 997634 RXNORM 1 tablet Oral one time a day Routine Give 1 tablet by mouth one time a day for ANXIET Y DISORD ER, UNSPEC IFIED (F41.9 ) for 3 Days 06/10 Gabapentin Oral Capsule 300 MG aborted 428127 RXNORM 1 capsul e Oral one time a day Routine Give 1 capsul e by mouth one time a day for POLYNE UROPAT HY, UNSPEC IFIED (G62.9 ) for 3 Days 06/10 Cyanocobalami n Oral Tablet 1000 MCG active 766794 RXNORM 1 tablet Oral one time a day Routine Give 1 tablet by mouth one time a day for Supple ment 2024 - Atorvastatin Calcium Oral Tablet 40 MG active 969086 RXNORM 1 tablet Oral at bedtime Routine Give 1 tablet by mouth at bedtim e for HYPERL IPIDEM IA, UNSPEC IFIED (E78.5 ) 2024 - Dorzolamide HCl-Timolol Mal Ophthalmic Solution 2-0.5 % active 273948 2 RXNORM 1 drop Ophthal robb at bedtime Routine Instil l 1 drop in both eyes at bedtim e for GLAUCO MA 2024 - Polyethylene Glycol Powder active 17 gram Oral in the morning Routine Give 17 gram by mouth in the mornin g for bowel manage ment 2024 - Gabapentin Oral Capsule 300 MG aborted 280072 RXNORM 1 capsul e Oral one time a day Routine Give 1 capsul e by mouth one time a day for POLYNE UROPAT HY, UNSPEC IFIED (G62.9 ) 06/11 Ranolazine ER Oral Tablet Extended Release 12 Hour 1000 MG active 121776 RXNORM 1 tablet Oral in the morning Routine Give 1 tablet by mouth in the mornin g for HEART FAILUR E 2024 - ALPRAZolam Oral Tablet 0.5 MG active 026877 RXNORM 1 tablet Oral one time a day Routine Give 1 tablet by mouth one time a day for ANXIET Y DISORD ER, UNSPEC IFIED (F41.9 ) 2024 - Aquaphor External Ointment active 895126 4 RXNORM n/a n/a Topical every scrap iron cutter Routine Apply to RLE topica lly every scrap iron cutter for dry skin AND Apply to RLE topica lly as needed for dry skin 2024 - 306460 4 RXNORM n/a n/a Topical as needed PRN Apply to RLE topica lly every scrap iron cutter for dry skin AND Apply to RLE topica lly as needed for dry skin 2024 - Gabapentin 300 MG Capsule active 519648 RXNORM 1 capsul e Oral one time a day Routine Give 1 capsul e by mouth one time a day for POLYNE UROPAT HY, UNSPEC IFIED (G62.9 ) 2024 - REMEDY ZINC SKIN PROTECT Paste active n/a n/a Topical every day and scrap iron cutter Routine Apply to coccyx /sacru m topica lly every day and scrap iron cutter for MASD/p revent ion Cleans e area, pat dry, apply cream. 2024 - Cephalexin Oral Tablet 500 MG aborted 19740217 RXNORM 1 tablet Oral four times a day Routine Give 1 tablet by mouth four times a day for UTI for 10 Days 06/18 Senna Oral Tablet 8.6 MG complete d 2 tablet Oral one time a day Routine Give 2 tablet by mouth one time a day for bowel mainte nance for 7 Days 06/21 Acetaminophen Oral Tablet 500 MG active 044959 RXNORM 1 tablet Oral every 6 hours Routine Give 1 tablet by mouth every 6 hours for Pain 2024 - Ertapenem Sodium Injection Solution Reconstituted 1 GM active 914644 3 RXNORM 1 gram Intramu scular one time a day Routine Inject 1 gram intram uscula rly one time a day for UTI for 7 Days 06/26 Pyridium Oral Tablet 200 MG complete d 024053 2 RXNORM 1 tablet Oral three times a day Routine Give 1 tablet by mouth three times a day for dysuri a for 2 Days 06/22 Mental Status Section Date Assessment Total Score Description 06/16/2025 BIMS 13 cognitively int act CAM 0 No delirium ind icated PHQ-9 00 04/30/2025 CAM 0 No delirium ind icated Problems Problem # Description Date of onset Resolved Date Code CodeSystem Concern Status 1 ALTERED MENTAL STATUS, UNSPECIFIED 04/25/2006/10/[address] completed 2 ACQUIRED ABSENCE OF LEFT FOOT 04/09/[address] active 3 ANXIETY DISORDER, UNSPECIFIED 04/09/[address] active 4 ATHEROSCLEROTIC HEART DISEASE OF [place] CORONARY ARTERY WITHOUT ANGINA PECTORIS 04/09/[address] active 5 CHRONIC KIDNEY DISEASE, UNSPECIFIED 04/09/[address] active 6 DISRUPTION OF WOUND, UNSPECIFIED, SUBSEQUENT ENCOUNTER 04/09/2006/10/[address] completed 7 EMPHYSEMA, UNSPECIFIED 04/09/[address] active 8 ENCOUNTER FOR ORTHOPEDIC AFTERCARE FOLLOWING SURGICAL AMPUTATION 04/09/[address] active 9 ESSENTIAL (PRIMARY) HYPERTENSION 04/09/[address] active 10 GASTRO-ESOPHAGEAL REFLUX DISEASE WITHOUT ESOPHAGITIS 04/09/[address] active 11 HEART FAILURE, UNSPECIFIED 04/09/[address] active 12 HYPERLIPIDEMIA, UNSPECIFIED 04/09/[address] active 13 OTHER SPECIFIED ARTHRITIS, UNSPECIFIED SITE 04/09/[address] active 14 POLYNEUROPATHY, UNSPECIFIED 04/09/[address] active 15 PRESENCE OF AORTOCORONARY BYPASS GRAFT 04/09/[address] active 16 SLEEP APNEA, UNSPECIFIED 04/09/[address] active 17 TYPE 2 DIABETES MELLITUS WITH DIABETIC PERIPHERAL ANGIOPATHY WITHOUT GANGRENE 04/09/[address] active 18 UNSPECIFIED ATRIAL FIBRILLATION 04/09/[address] active 19 UNSPECIFIED GLAUCOMA 04/09/[address] active 20 UNSPECIFIED MOOD [AFFECTIVE] DISORDER 04/09/[address] active 21 UNSPECIFIED URINARY INCONTINENCE 04/09/20 25 06/10/[address] completed Reason for Referral No Reasons for Referral Entered Diagnostic Results Result Code Code System Date Test Result Interpretation Reference Range Status Notes GA7722- 6 LOINC 06/19 *BASIC METABOLIC PANEL / *CBC, PLATELET CT & DIFF Completed Result for: SKYLER BAUTISTA ( 1940, F) 2951-2 LOINC 06/19 SODIUM Value: 137 Units: MEQ/L Normal 135-148 Final 2823-3 [facility] 06/19 POTASSIUM Value: 4.0 Units: MEQ/L Normal 3.4-5.3 Final 2074-0 [facility] 06/19 CHLORIDE Value: 106 Units: MEQ/L Normal 96-110 Final 2027-9 [facility] 06/19 CO2 Value: 21 Units: MEQ/L Normal 19-32 Final 2345-7 [facility] 06/19 GLUCOSE,RA NDOM Value: 116 Units: MG/DL High 70-99 Final (NOTE) The [place] [employer] n recommends the following guideline s: MG/DL . <100 = NORMAL GLUCOSE 10 0-125= IMPAIRED FASTING GLUCOSE >= 126 = PROVISIONA L DIAGNOSIS OF DIABETES A DA Workgroup Report, Diabetic Care, volume 40, October 2016 . 3094-0 [facility] 06/19 BLOOD UREA NITROGEN Value: 13 Units: MG/DL Normal 3-29 Final 2160-0 [facility] 06/19 CREATININE Value: 0.9 Units: MG/DL Normal 0.5-1.2 Final 3097-3 [facility] 06/19 BUN/CREAT RATIO Value: 14 Units: Normal 7-25 Final 08102-8 [facility] 06/19 GLOMERULAR FILTRATION RATE (GFR) Value: 63 Units: MLS/MIN/1.7 3M2 Normal >60 Final (NOTE) [facility] uses the CKD-EPI Creatinine Equation (2020) to calculate estimated glomerular filtration rates (eGFR). eGFR = 142 x min(standa rdized Scr/K,1) a * max(standa rdized Scr/K,1)- 1.200 * 0.9938 age in years * 1.012 [if female] 62584-8 [facility] 06/19 CALCIUM Value: 8.9 Units: MG/DL Normal 8.5-10.5 Final 18696-3 [facility] 06/19 FASTING STATUS Value: UNKNOWN Units: Normal Final . 29240-3 [facility] 06/19 DIFFERENTI AL Value: AUTOMATIC METHOD Units: Normal Final Manual review of smear performed 6690-2 [facility] 06/19 WBC COUNT Value: 2.8 Units: K/uL Low 3.5-10.9 Final 789-8 [facility] 06/19 RBC Value: 2.43 Units: M/uL Low 3.95-5.26 Final 718-7 [facility] 06/19 HEMOGLOBIN Value: 8.7 Units: G/DL Low 11.2-15.7 Final 4544-3 [facility] 06/19 HEMATOCRIT Value: 26.9 Units: % Low 34.0-49.0 Final 787-2 [facility] 06/19 MCV Value: 110.7 Units: FL High 80.0-100.0 Final 785-6 [facility] 06/19 MCH Value: 35.8 Units: PG High 26.0-34.0 Final 786-4 [facility] 06/19 MCHC Value: 32.3 Units: G/DL Normal 30.7-35.5 Final 788-0 [facility] 06/19 RDW Value: 17.4 Units: % High <15.1 Final 777-3 [facility] 06/19 PLATELET COUNT Value: 91 Units: K/uL Low 140-400 Final Platelet count verified by slide 58336-5 [facility] 06/19 MPV Value: 13.0 Units: FL High 7.2-11.7 Final 770-8 [facility] 06/19 NEUTROPHIL Value: 55.5 Units: % Normal 42.0-80.0 Final 736-9 [facility] 06/19 LYMPHOCYTE Value: 34.7 Units: % Normal 14.0-51.0 Final 5905-5 [facility] 06/19 MONOCYTE Value: 9.4 Units: % Normal 4.0-12.0 Final 713-8 [facility] 06/19 EOSINOPHIL Value: 0.0 Units: % Normal 0.0-5.0 Final 706-2 [facility] 06/19 BASOPHIL Value: 0.4 Units: % Normal 0.0-2.0 Final 751-8 [facility] 06/19 ABS NEUTROPHIL Value: 1.5 Units: K/uL Low 1.8-7.5 Final 731-0 [facility] 06/19 ABS LYMPHOCYTE Value: 1.0 Units: K/uL Normal 0.9-4.1 Final 742-7 [facility] 06/19 ABS MONOCYTE Value: 0.3 Units: K/uL Normal 0.2-1.0 Final 28725-2 [facility] 06/19 ABS EOSINOPHIL Value: 0.0 Units: K/uL Normal 0.0-0.5 Final 704-7 LOINC 06/19 ABS BASOPHIL Value: 0.0 Units: K/uL Normal 0.0-0.3 Final 6742-1 [facility] 06/19 RBC MORPHOLOGY Value: MACROCYTOSI S Units: Normal Final . 22927-0 [facility] 06/16 HIP UNI W OR W/O PELVIS 2-3 V-LT Completed Result for: SKYLER BAUTISTA ( 1940, F) 21505-9 [facility] 06/16 HIP UNI W OR W/O PELVIS 2-3 V-LT Final HIP UNI W OR W/O PELVIS 2-3 V, LEFTSee NoteFINDIN GS: There is a left intertroch anteric fracture with moderate callus formation bridged by an ORIF with components in satisfacto ry position. The femoral head is in alignment within acetabular fossa. The pubic rami are unremarkab le. Surgical noelle are seen. Soft tissue swelling is seen. Mild degenerati ve changes and above-knee amputation are seen. Diffuse osseous deminerali zation is noted. Right hip arthroplas ty is seen.CONCL USION: Fixated left intertroch anteric fracture with moderate healing.EL ECTRONICAL LY SIGNED BY SURENDRA MURPHY D.O. 06/16/2025 4:16:51 PM EDT.Reason for Study: Z47.81 ENCOUNTER FOR ORTHOPEDIC AFTERCARE FOLLOWING SURGICAL AMPUTATION Principal Result Interprete r: SURENDRA MURPHY ([id number])Technici an: NELIA PLASENCIA ([facility])Tiffanie henriquez on Computer Art Instructor : NAHED UU1217- 6 [facility] 06/12 *CBC, PLATELET CT & DIFF / *COMPREHEN SIVE METABOLIC PANEL / HEMOGLOBIN A1C Completed Result for: BAUTISTA, SKYLER ( 1940, F) 4548-4 [facility] 06/12 HEMOGLOBIN A1C Value: 6.0 Units: % High <5.7 Final (NOTE) . T he [place] [employer] Associ[employer] n recommends the following Guidelines : 5.7-6.4% Indicates increased risk for diabetes (Prediabet es). >6.5% Diagnostic of diabetes. In the absence of unequivoca l hyperglyce evi, results should be confirmed by repeat testing. <7% Glycemic recommenda tion for nonpregnan t adults with diabetes. . [place] [employer] n, Standards of Medical Care in Diabetes, Volume 40; 2017 . 38060-7 [facility] 06/12 DIFFERENTI AL Value: AUTOMATIC METHOD Units: Normal Final 42354-2 [facility] 06/12 IMMATURE GRANULOCYT ES Value: 0.3 Units: % Normal <1 Final . 6690-2 [facility] 06/12 WBC COUNT Value: 3.3 Units: K/uL Low 3.5-10.9 Final 789-8 [facility] 06/12 RBC Value: 2.24 Units: M/uL Low 3.95-5.26 Final 718-7 [facility] 06/12 HEMOGLOBIN Value: 7.8 Units: G/DL Low 11.2-15.7 Final 4544-3 [facility] 06/12 HEMATOCRIT Value: 24.4 Units: % Low 34.0-49.0 Final 787-2 [facility] 06/12 MCV Value: 108.9 Units: FL High 80.0-100.0 Final 785-6 [facility] 06/12 MCH Value: 34.8 Units: PG High 26.0-34.0 Final 786-4 [facility] 06/12 MCHC Value: 32.0 Units: G/DL Normal 30.7-35.5 Final 788-0 [facility] 06/12 RDW Value: 17.5 Units: % High <15.1 Final 777-3 [facility] 06/12 PLATELET COUNT Value: 99 Units: K/uL Low 140-400 Final 62999-9 [facility] 06/12 MPV Value: 12.6 Units: FL High 7.2-11.7 Final 770-8 [facility] 06/12 NEUTROPHIL Value: 61.4 Units: % Normal 42.0-80.0 Final 736-9 [facility] 06/12 LYMPHOCYTE Value: 29.7 Units: % Normal 14.0-51.0 Final 5905-5 [facility] 06/12 MONOCYTE Value: 8.0 Units: % Normal 4.0-12.0 Final 713-8 [facility] 06/12 EOSINOPHIL Value: 0.0 Units: % Normal 0.0-5.0 Final 706-2 [facility] 06/12 BASOPHIL Value: 0.6 Units: % Normal 0.0-2.0 Final 751-8 [facility] 06/12 ABS NEUTROPHIL Value: 2.0 Units: K/uL Normal 1.8-7.5 Final 67059-7 [facility] 06/12 ABS IMMATURE GRANS Value: 0.0 Units: K/uL Normal 0.0-0.1 Final 731-0 [facility] 06/12 ABS LYMPHOCYTE Value: 1.0 Units: K/uL Normal 0.9-4.1 Final 742-7 [facility] 06/12 ABS MONOCYTE Value: 0.3 Units: K/uL Normal 0.2-1.0 Final 75118-9 [facility] 06/12 ABS EOSINOPHIL Value: 0.0 Units: K/uL Normal 0.0-0.5 Final 704-7 [facility] 06/12 ABS BASOPHIL Value: 0.0 Units: K/uL Normal 0.0-0.3 Final 82529-9 [facility] 06/12 nRBCs Value: 0.0 Units: /100{WBC} Normal 0 Final 2951-2 [facility] 06/12 SODIUM Value: 140 Units: MEQ/L Normal 135-148 Final 2823-3 [facility] 06/12 POTASSIUM Value: 4.1 Units: MEQ/L Normal 3.4-5.3 Final 2074-0 [facility] 06/12 CHLORIDE Value: 107 Units: MEQ/L Normal 96-110 Final 2028-06 [facility] 06/12 CO2 Value: 23 Units: MEQ/L Normal 19-32 Final 2344-7 [facility] 06/12 GLUCOSE,RA NDOM Value: 118 Units: MG/DL High 70-99 Final (NOTE) The [place] [employer] n recommends the following guideline s: MG/DL . <100 = NORMAL GLUCOSE 10 0-125= IMPAIRED FASTING GLUCOSE >= 126 = PROVISIONA L DIAGNOSIS OF DIABETES A DA Workgroup Report, Diabetic Care, volume 40, October 2016 . 3094-0 [facility] 06/12 BLOOD UREA NITROGEN Value: 25 Units: MG/DL Normal 3-29 Final 2160-0 [facility] 06/12 CREATININE Value: 1.1 Units: MG/DL Normal 0.5-1.2 Final 3097-3 [facility] 06/12 BUN/CREAT RATIO Value: 23 Units: Normal 7-25 Final 57490-4 [facility] 06/12 GLOMERULAR FILTRATION RATE (GFR) Value: 49 Units: MLS/MIN/1.7 3M2 Low >60 Final (NOTE) [facility] uses the CKD-EPI Creatinine Equation (2020) to calculate estimated glomerular filtration rates (eGFR). eGFR = 142 x min(standa rdized Scr/K,1) a * max(standa rdized Scr/K,1)- 1.200 * 0.9938 age in years * 1.012 [if female] 99741-9 [facility] 06/12 CALCIUM Value: 9.1 Units: MG/DL Normal 8.5-10.5 Final 2885 [facility] 06/12 TOTAL PROTEIN Value: 6.1 Units: G/DL Normal 6.0-8.3 Final 1751-04 [facility] 06/12 ALBUMIN Value: 3.4 Units: G/DL Low 3.5-5.2 Final 11695-2 [facility] 06/12 GLOBULIN Value: 2.7 Units: G/DL Normal 1.9-3.6 Final 0 [facility] 06/12 A/G RATIO Value: 1.3 Units: {ratio} Normal 0.8-2.6 Final 1974-11 [facility] 06/12 BILIRUBIN, TOTAL Value: 0.5 Units: MG/DL Normal 0.0-1.2 Final 1920-05 [facility] 06/12 AST Value: 23 Units: U/L Normal 0-55 Final 1742-6 [facility] 06/12 ALT Value: 14 Units: U/L Normal 0-60 Final 6768 [facility] 06/12 ALK PHOSPHATAS E Value: 176 Units: U/L High 23-144 Final 91820-3 [facility] 06/12 FASTING STATUS Value: UNKNOWN Units: Normal Final . Test Code Code System Name Date *BASIC METABOLIC PANEL 06/19 *CBC, PLATELET CT & DIFF 12/202406/16/2025 06/12/2025 *CBC, PLATELET CT & DIFF *COMPREHENSIVE METABOLIC YO EL 06/12/2025 Social History Social History Observation Description Start Date End Date Code Code System Current Smoking Status Tobacco smoking consumption unknown 934886802 SNOMED CT Sex Assigned At Female 1940 79568-2 [facility] Gender Identity Vital Signs Code Code System Vitals Name Values and Units Timing Information 8462-4 [facility] Blood Pressure-Diastolic Value=93 Un its=mmHg 06/23/2025 8480-6 [facility] Blood Pressure-Systolic Vmlqj=512 Un its=mmHg 06/23/2025 8867-4 [facility] Heart rate Sxbdi=890.0 Units=/min 06/23/2025 35715-8 [facility] O2 % BldC Oximetry Value=90.0 Units= % 06/23/2025 60784-0 [facility] Pain Level Value=7.0 06/23/2025 9279-1 [facility] Respiratory Rate Value=18.0 Units=/m in 06/23/2025 8310-5 [facility] Body Temperature Value=96.9 Units= F 06/23/2025 34760-1 [facility] Weight Epkdc=857.2 Units=Lbs 10/2024 2339-0 [facility] Blood Sugar Uugub=958.0 Units=mg/dL 06/10/2025 8302-2 [facility] Height Value=62.0 Units=Inches 06/10/2025
--- OUTSIDE RECORDS SUMMARY | 2025-07-12 08:40 | XMS_ITS | Referral Summary ---
Author Organization [employer] ([place], [place], [place], [place]) Address [address] [place] [address] Care Team Providers Care Reservoir Engineering Manager Name Role Phone Jay Howell MD Primary Care Provider Allergies Active Allergy Reactions Criticality Noted Date Comments Nitrofurantoin Macrocrystal 11/25/19 23 Morphine 11/25/2022 Medications amLODIPine (NORVASC) 10 MG tablet Take 10 mg by mouth daily. Active brimonidine-niels oloL (COMBIGAN) 0.2-0.5 % ophthalmic solution Place 1 drop into the right eye 2 (two) times daily . Active warfarin (COUMADIN, JANTOVEN) 3 MG tablet Take 3 mg by mouth daily. Active hydrALAZINE (APRESOLINE) 10 MG tablet Take 10 mg by mouth 3 (three) times daily . Active losartan (COZAAR) 100 MG tablet Take 100 mg by mouth daily. Active HYDROcodone-cuate taminophen (NORCO 5-325) 5-325 mg per tablet Take 1 tablet by mouth daily as needed for Pain . Active omeprazole (PriLOSEC) 40 MG capsule Take 40 mg by mouth 2 (two) times daily . Active ranolazine (RANEXA) 500 MG 12 hr tablet Take 500 mg by mouth every evening. Active ranolazine (RANEXA) 500 MG 12 hr tablet Take 1,000 mg by mouth in the morning. Active b complex vitamins capsule Take 1 capsule by mouth daily. Active cholecalciferol , vitamin D3, 2,000 unit Tab Take 2,000 Units by mouth daily. Active ALPRAZolam (XANAX) 1 MG tablet Take 1 mg by mouth nightly . Active carvediloL (COREG) 6.25 MG tablet Take 12.5 mg by mouth 2 (two) times daily. Active dorzolamide (TRUSOPT) 2 % ophthalmic solution Place 1 drop into both eyes 3 (three) times daily. Active meclizine (ANTIVERT) 25 MG tablet Take 25 mg by mouth 3 (three) times daily as needed for Dizziness. Active atorvastatin (LIPITOR) 80 MG tablet Take 80 mg by mouth nightly. Active furosemide (LASIX) 40 MG tablet Take 40 mg by mouth daily. Active potassium chloride SA (K-DUR,KLOR-CON -M) 20 MEQ tablet Take 20 mEq by mouth daily. Active metFORMIN (GLUMETZA) 500 MG (MOD) 24 hr tablet Take 1 tablet (500 mg total) by mouth 2 (two) times daily with breakfast and dinner. 0 Active Active Problems Problem Noted Date Diagnosed Date Unstable angina 11/25/2022 Angina at rest 11/25/2022 Social History Tobacco Use Types Packs/Day Years Used Date Smoking Tobacco: Never Smokeless Tobacco: Never Alcohol Use Standard Drinks/Week Comments Never 0 (1 standard drink = 0.6 oz pur e alcohol) Food Insecurity Answer Date Recorded Food run out past 12 months Not on file 10/17 Food did not last past 12 months Not on file 10/30/2023 Employment Answer Date Recorded Help finding and keeping a job Not on file 0 10/30/2023 Family and Community Support Answer Chito e Recorded Help with Day to Day Activities Not on file 10/30/2023 Feeling Lonely or Isolated Not on file 10/30 Educational Attainment Answer Date Kennedy rded Speak language other than Bangladeshi at home Not on file 10/30/2023 Want help with school or training Not on file 10/30/2023 Substance Use Answer Date Recorded Used prescription meds for non-medical reasons N ot on file 10/30/2023 Used illegal drugs past 12 months Not on file 10/30/2023 Comments Unknown Sex and Gender Information Value Date Recorded Sex Assigned at Not on file Legal Sex Female 7:30 PM CDT Gender Identity Not on file Sexual Orientation Not on file Last Filed Vital Signs Vital Sign Reading Time Taken Comments Blood Pressure 167/77 11/12/2023 3:30 PM EST Pulse 72 11/12/2023 3:30 PM EST Temperature 36.7 C (98 F) 11/12/2023 1:05 PM EST Respiratory Rate 16 11/12/2023 1:05 PM EST Oxygen Saturation 97% 11/12/2023 3:30 PM EST Inhaled Oxygen Concentration - - Weight 63.5 kg (140 lb) 11/12/2023 1:05 PM EST Height 160 cm (5' 3 ) 11/12/2023 1:05 PM EST Body Mass Index 24.8 11/12/2023 1:05 PM EST Plan of Treatment Not on file Insurance MEDICARE PART A B [facility] Advance Directives For more information, please contact: [phone] * Full Code (Latest Code Status on File) Date Activated Date Inactivated Comments 11/25/2022 10:41 AM 11/26/2022 5:33 PM * Full Code Date Activated Date Inactivated Comments 11/25/2022 8:11 AM 11/25/2022 10:41 AM -Attempt Resu scitation if person has no pulse and is not breathing. -If no pulse or not breathing attempt CPR/CODE. -Call Rapid Response if patient is in distress. Care Teams Reservoir Engineering Manager Relationship Specialty Start Date End Date Jay Howell MD [address] [place] [phone] PCP - General Emergency Medicine 11/12/23
--- OUTSIDE RECORDS SUMMARY | 2025-07-12 08:41 | XMS_ITS | Encounter Summary ---
Author Organization [employer] ([place], [place], [place], [place]) Address [address] [place] [address] Care Team Providers Care Mat Roller Name Role Phone Jay Howell MD Primary Care Provider [phone] Encounter Details Date Type Department Care Team (Late st Contact Info) Description 03/16/2021 Transcribed Document [facility] [place] [address] [place] [id number] ProviderJessie MD [address] [place], [place] [id number] Social History Tobacco Use Types Packs/Day Years Used Date Smoking Tobacco: Never Assessed Comments Unknown Sex and Gender Information Value Date Recorded Sex Assigned at Not on file Legal Sex Female 7:30 PM CDT Gender Identity Not on file Sexual Orientation Not on file documented as of this encounter Miscellaneous Notes * Cerner Conversion Note - Jessie ProviderMD - 03/16/2021 11:24 AM CDT ED Assessment Entered On: 03/16/2021 12:59 EDT Performed On: 03/16/2021 11:24 EDT by Viri Gonsales RN ED Quick Look Assessment Level of Consciousness : Alert, Awake Affect/Behavior : Appropriate, Calm, Cooperative Orientation : Oriented x 4 Skin Temperature : Warm Skin Description : Normal for ethnicity Viri Gonsales RN - 03/16/2021 12:57 EDT ED General-Functional Assess Information Obtained From : Patient Preferred Communication Mode : Verbal Communication Barrier : None Primary Language : Ghanaian Any Spiritual/Cultural Needs or Requests : No Currently in Unsafe Situation : No Viri Gonsales RN - 03/16/2021 12:57 EDT Social Habits Smoking Status : Former smoker, quit more than 30 days ago Smokeless Tobacco Status : Never Desires Tobacco Cessation Calc : 0 Viri Gonsales RN - 03/16/2021 12:57 EDT Social History (As Of: 03/16/2021 12:59:42 EDT) Tobacco: Smoking Status Former smoker. Comments: [...] ASMT, ED Cardiovascular Assessment WDL : WDL Viri Gonsales RN - 03/16/2021 12:57 EDT Respiratory Respiratory Assessment WDL : WD Viri Gonsales RN - 03/16/2021 12:57 EDT Gastrointestinal ED Gastrointestinal Assessment WDL : WDL with exceptions Gastrointestinal Symptoms : Nausea Viri Gonsales RN - 03/16/2021 12:57 EDT Genitourinary Assessment, ED Genitourinary Assessment WDL : WDL with exceptions (Comment: burning with urination [Viri Gonsales RN - 03/16/2021 12:57 EDT] ) Viri Gonsales RN - 03/16/2021 12:57 EDT Musculoskeletal Musculoskeletal Assessment WDL : WDL with exceptions Musculoskeletal Assessment Comment : RT wrist pain, body aches all over Viri Gonsales RN - 03/16/2021 12:57 EDT Neurologic ASMT, ED Neurologic Assessment WDL : WDL with exceptions (Comment: Dizziness 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, states that she passed out and the room was spinning [Viri Gonsales RN - 03/16/2021 12:57 EDT] ) Viri Gonsales RN - 03/16/2021 12:57 EDT Electronically signed by [facility], [facility] Conversion [employer] Teacher Cerner at 02/04/2023 2:07 PM CDT documented in this encounter Plan of Treatment Not on file documented as of this encounter Visit Diagnoses Not on filedocumented in this encounter Care Teams Mat Roller Relationship Specialty Start Date End Date Jay Howell MD [address] [place] [phone] PCP - General Emergency Medicine 11/12/23 documented as of this encounter
--- OUTSIDE RECORDS SUMMARY | 2025-07-12 08:41 | XMS_ITS | Encounter Summary ---
Author Organization [employer] ([place], [place], [place], [place]) Address [address] [place] [address] Care Team Providers Care Broadband Engineer Name Role Phone Jay Howell MD Primary Care Provider [phone] Encounter Details Date Type Department Care Team (Late st Contact Info) Description 06/13/2020 Transcribed Document [facility] [place] [address] [place] [address] ProviderJessie MD [address] [place] [address] Social History Tobacco Use Types Packs/Day Years Used Date Smoking Tobacco: Never Assessed Comments Unknown Sex and Gender Information Value Date Recorded Sex Assigned at Not on file Legal Sex Female 7:30 PM CDT Gender Identity Not on file Sexual Orientation Not on file documented as of this encounter Miscellaneous Notes * Cerner Conversion Note - Jessie ProviderMD - 06/13/2020 9:06 AM CDT UM Authorization Entered On: 06/13/2020 9:06 EDT Performed On: 06/13/2020 9:06 EDT by MARILYNN RAMÍREZ, RN-Utilization Review Primary Insurance Authorization Authorization and Policy Numbers : Insurance 1 Health Plan: MEDICARE Policy Number: [id number] Authorization Number: Insurance 2 Health Plan: A[employer] N Policy Number: [id number] Authorization Number: Insurance Primary Name : MEDICARE Policy Number: [id number] Authorized Service Begin Date-Primary : 06/12/2020 EDT Historical Authorization Comments-Primary : No Authorization Comments Found MARILYNN RAMÍREZ, RN-Utilization Review - 06/13/2020 9:06 EDT Electronically signed by S[facility] Conversion Roof Truss Machine Tender Cerner at 02/04/2023 2:21 PM CDT documented in this encounter Plan of Treatment Not on file documented as of this encounter Visit Diagnoses Not on filedocumented in this encounter Care Teams Broadband Engineer Relationship Specialty Start Date End Date Jay Howell MD [address] [place] [phone] PCP - General Emergency Medicine 11/12/23 documented as of this encounter
--- OUTSIDE RECORDS SUMMARY | 2025-07-12 08:41 | XMS_ITS | Encounter Summary ---
Author Organization [facility] ([place], [place], [place], [place]) Address [address] [place] [address] Care Team Providers Care Returning Officer Name Role Phone Jay Howell MD Primary Care Provider [phone] Encounter Details Date Type Department Care Team (Late st Contact Info) Description 06/12/2020 Transcribed Document [facility] [place] [address] [place] [address] ProviderJessie MD [address] [place] [address] Social History Tobacco Use Types Packs/Day Years Used Date Smoking Tobacco: Never Assessed Comments Unknown Sex and Gender Information Value Date Recorded Sex Assigned at Not on file Legal Sex Female 7:30 PM CDT Gender Identity Not on file Sexual Orientation Not on file documented as of this encounter Miscellaneous Notes * Cerner Conversion Note - Jessie ProviderMD - 06/12/2020 9:23 PM CDT [place] Suicide Severity Rating Scale (C-SSRS) Entered On: 06/12/2020 22:56 EDT Performed On: 06/12/2020 22:00 EDT by NICOLE BYERS RN [place] Suicide Severity Rating Scale (C-SSRS) CSSRS Past Month Wish to be : No CSSRS Past Month Suicidal Thoughts : No CSSRS Lifetime Suicide Behavior : No Suicide Severity Rating Score : 0 Suicide Severity Rating : No Additional Care Required at this time NICOLE BYERS RN - 06/12/2020 22:47 EDT documented in this encounter Plan of Treatment Not on file documented as of this encounter Visit Diagnoses Not on filedocumented in this encounter Care Teams Returning Officer Relationship Specialty Start Date End Date Jay Howell MD [address] [place] [phone] PCP - General Emergency Medicine 11/12/23 documented as of this encounter
--- OUTSIDE RECORDS SUMMARY | 2025-07-12 08:41 | XMS_ITS | Encounter Summary ---
Author Organization [employer] ([place], [place], [place], [place]) Address [address] [place] [address] Care Team Providers Care Oracle Brm Developer Name Role Phone Jay Howell MD Primary Care Provider [phone] Encounter Details Date Type Department Care Team (Late st Contact Info) Description 12/21/2018 Transcribed Document [facility] [place] [facility] [address] [place] [address] ProviderJessie MD [address] [place] [address] Social History Tobacco Use Types Packs/Day Years Used Date Smoking Tobacco: Never Assessed Comments Unknown Sex and Gender Information Value Date Recorded Sex Assigned at Not on file Legal Sex Female 7:30 PM CDT Gender Identity Not on file Sexual Orientation Not on file documented as of this encounter Miscellaneous Notes * Cerner Conversion Note - Jessie Yuen MD - 12/21/2018 11:50 AM TRUST 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 These instructions provide you with information on caring for yourself after your procedure. Your caregiver may also give you more specific instructions. Your treatment has been planned according to current medical practices, but problems sometimes occur. Call your caregiver if you have any problems or questions after your procedure. HOME CARE INSTRUCTIONS ? You may shower 24 hours after the procedure. Remove the bandage (dressing ) and gently wash the site with plain soap and water. Gently pat the site dry. ? Do not apply powder or lotion to the site. ? Do not sit in a bathtub, swimming pool, or whirlpool for 5 to 7 days. ? No bending, squatting, or lifting anything over 10 pounds (4.5 kg) as directed by your caregiver. ? Inspect the site at least twice daily. ? Do not drive home if you are discharged the same day of the procedure. Have someone else drive you. ? You may drive 24 hours after the procedure unless otherwise instructed by your caregiver. What to expect: ? Any bruising will usually fade within 1 to 2 weeks. ? Blood that collects in the tissue (hematoma ) may be painful to the touch. It should usually decrease in size and tenderness within 1 to 2 weeks. SEEK IMMEDIATE MEDICAL CARE IF: ? You have unusual pain at the groin site or down the affected leg. ? You have redness, warmth, swelling, or pain at the groin site. ? You have drainage (other than a small amount of blood on the dressing). ? You have chills. ? You have a fever or persistent symptoms for more than 72 hours. ? You have a fever and your symptoms suddenly get worse. ? Your leg becomes pale, cool, tingly, or numb. ? You have heavy bleeding from the site. Hold pressure on the site. Document Released: 11/05/2011 Document Revised: 12/25/2012 Document Reviewed: 11/05/2011 [employer]? Patient Information ?2014 [employer]. Cardiovascular Coronary Artery Disease, Female Coronary artery disease (CAD) is a process in which the blood vessels of the heart (coronary arteries) become narrow or blocked. The narrowing or blockage can lead to decreased blood flow to the heart muscle (angina). Symptoms known as angina can develop if the blood flow is reduced to the heart for a short period of time. Prolonged reduced blood flow can cause a heart attack (myocardial infarction, [place]). CAD is a leading cause of for women. More women from CAD than from cancer, lung disease, and accidents combined. It is important for women to understand the risks, symptoms, and treatment options for CAD. What are the causes? Atherosclerosis is the cause of CAD. Atherosclerosis is the buildup of fat and cholesterol (plaque) on the inside of the arteries. Over time, the plaque may narrow or block the artery, and this will lessen blood flow to the heart. Plaque can also become weak and break off within a coronary artery to form a clot and cause a sudden blockage. What increases the risk? Many risk factors increase your chances of getting CAD, including: ??? High cholesterol levels. ??? High blood pressure (hypertension). ??? Tobacco use. ??? Diabetes. ??? Age. Women over age 55 are at a greater risk of CAD. ??? Menopause. ? All postmenopausal women are at greater risk of CAD. ? Women who have experienced menopause between the ages of 40?45 (early menopause) are at a higher risk of CAD. ? Women who have experienced menopause before age 40 (premature menopause) are at an extremely high risk of CAD. ??? Family history of CAD. ??? Obesity. ??? Lack of exercise. ??? A diet high in saturated fats. What are the signs or symptoms? Many people do not experience any symptoms during the early stages of CAD. As the condition progresses, symptoms may include: ??? Chest pain. ? The pain can be described as crushing or squeezing, or a tightness, pressure, fullness, or heaviness in the chest. ? The pain can last more than a few minutes or can stop and recur. ??? Pain in the arms, neck, jaw, or back. ??? Unexplained heartburn or indigestion. ??? Shortness of breath. ??? Nausea. ??? Sudden cold sweats. ??? Sudden light-headedness. Many women have chest discomfort and the other symptoms. However, women often have different (atypical) symptoms, such as: ??? Fatigue. ??? Unexplained feelings of nervousness or anxiety. ??? Unexplained weakness. ??? Dizziness or fainting. Sometimes, women may not have any symptoms of CAD. How is this diagnosed? Tests to diagnose CAD may include: ??? ECG (electrocardiogram). ??? Exercise stress test. This looks for signs of blockage when the heart is being exercised. ??? Pharmacologic stress test. This test looks for signs of blockage when the heart is being stressed with a medicine. ??? Blood tests. ??? Coronary angiogram. This is a procedure to look at the coronary arteries to see if there is any blockage. How is this treated? The treatment of CAD may include the following: ??? Healthy behavioral changes to reduce or control risk factors. ??? Medicine. ??? Coronary stenting.?A stent helps to keep an artery open. ??? Coronary angioplasty. This procedure widens a narrowed or blocked artery. ??? Coronary artery?bypass surgery. This will allow your blood to pass the blockage (bypass) to reach your heart. Follow these instructions at home: ??? Take medicines only as directed by your health care provider. ??? Do nottake the following medicines unless your health care provider approves: ? Nonsteroidal anti-inflammatory drugs (NSAIDs), such as ibuprofen, naproxen, or celecoxib. ? Vitamin supplements that contain vitamin A, vitamin E, or both. ? Hormone replacement therapy that contains estrogen with or without progestin. ??? Manage other health conditions such as hypertension and diabetes as directed by your health care provider. ??? Follow a heart-healthy diet. A dietitian can help to educate you about healthy food options and changes. ??? Use healthy cooking methods such as roasting, grilling, broiling, baking, poaching, steaming, or stir-frying. Talk to a dietitian to learn more about healthy cooking methods. ??? Follow an exercise program approved by your health care provider. ??? Maintain a healthy weight. Lose weight as approved by your health care provider. ??? Plan rest periods when fatigued. ??? Learn to manage stress. ??? Do notuse any tobacco products, including cigarettes, chewing tobacco, or electronic cigarettes. If you need help quitting, ask your health care provider. ??? If you drink alcohol, and your health care provider approves, limit your alcohol intake to no more than 1 drink per day. One drink equals 12 ounces of beer, 5 ounces of wine, or 1? ounces of hard liquor. ??? Stop illegal drug use. ??? Your health care provider may ask you to monitor your blood pressure. A blood pressure reading consists of a higher number over a lower number, such as 110 over 72, which is written as 110/72. Ideally, your blood pressure should be: ? Below 140/90 if you have no other medical conditions. ? Below 130/80 if you have diabetes or kidney disease. ??? Keep all follow-up visits as directed by your health care provider. This is important. Get help right away if: ??? You have pain in your chest, neck, arm, jaw, stomach, or back that lasts more than a few minutes, is recurring, or is unrelieved by taking medicine under your tongue (sublingual?nitroglycerin). ??? You have profuse sweating without cause. ??? You have unexplained: ? Heartburn or indigestion. ? Shortness of breath or difficulty breathing. ? Nausea or vomiting. ? Fatigue. ? Feelings of nervousness or anxiety. ? Weakness. ? Diarrhea. ??? You have sudden light-headedness or dizziness. ??? You faint. These symptoms may represent a serious problem that is an emergency. Do not wait to see if the symptoms will go away. Get medical help right away. Call your local emergency services (911 in the [place] Do not drive yourself to the hospital. This information is not intended to replace advice given to you by your health care provider. Make sure you discuss any questions you have with your health care provider. Document Released: 12/25/2012 Document Revised: 03/10/2017 Document Reviewed: 02/04/2015 [employer] Patient Education ? 2017 [employer]. Nutrition Heart-Healthy Eating Plan Introduction Heart-healthy meal planning includes: ??? Limiting unhealthy fats. ??? Increasing healthy fats. ??? Making other small dietary changes. You may need to talk with your doctor or a diet specialist (dietitian) to create an eating plan that is right for you. What types of fat should I choose? Choose healthy fats. These include olive oil and canola oil, flaxseeds, walnuts, almonds, and seeds. ??? Eat more omega-3 fats. These include salmon, mackerel, sardines, tuna, flaxseed oil, and ground flaxseeds. Try to eat fish at least twice each week. ??? Limit saturated fats.? Saturated fats are often found in animal products, such as meats, butter, and cream. ? Plant sources of saturated fats include palm oil, palm kernel oil, and coconut oil. ??? Avoid foods with partially hydrogenated oils in them. These include stick margarine, some tub margarines, cookies, crackers, and other baked goods. These contain trans fats. What general guidelines do I need to follow? Check food labels carefully. Identify foods with trans fats or high amounts of saturated fat. ??? Fill one half of your plate with vegetables and green salads. Eat 4?5 servings of vegetables per day. A serving of vegetables is:? 1 cup of raw leafy vegetables. ? ? cup of raw or cooked cut-up vegetables. ? ? cup of vegetable juice. ??? Fill one fourth of your plate with whole grains. Look for the word whole as the first word in the ingredient list. ??? Fill one fourth of your plate with lean protein foods. ??? Eat 4?5 servings of fruit per day. A serving of fruit is:? One medium whole fruit. ? ? cup of dried fruit. ? ? cup of fresh, frozen, or canned fruit. ? ? cup of 100% fruit juice. ??? Eat more foods that contain soluble fiber. These include apples, broccoli, carrots, beans, peas, and barley. Try to get 20?30 g of fiber per day. ??? Eat more home-cooked food. Eat less restaurant, buffet, and fast food. ??? Limit or avoid alcohol. ??? Limit foods high in starch and sugar. ??? Avoid fried foods. ??? Avoid frying your food. Try baking, boiling, grilling, or broiling it instead. You can also reduce fat by:? Removing the skin from poultry. ? Removing all visible fats from meats. ? Skimming the fat off of stews, soups, and gravies before serving them. ? Steaming vegetables in water or broth. ??? Lose weight if you are overweight. ??? Eat 4?5 servings of nuts, legumes, and seeds per week:? One serving of dried beans or legumes equals ? cup after being cooked. ? One serving of nuts equals 1? ounces. ? One serving of seeds equals ? ounce or one tablespoon. ??? You may need to keep track of how much salt or sodium you eat. This is especially true if you have high blood pressure. Talk with your doctor or dietitian to get more information. What foods can I eat? GrainsBreads, including Polish, white, jie, wheat, raisin, rye, oatmeal, and Central African. Tortillas that are neither fried nor made with lard or trans fat. Low-fat rolls, including hotdog and hamburger buns and British muffins. Biscuits. Muffins. Waffles. Pancakes. Light popcorn. Whole-grain cereals. Flatbread. [place] toast. Pretzels. Breadsticks. Rusks. Low-fat snacks. Low-fat crackers, including oyster, saltine, matzo, mikal, animal, and rye. Rice and pasta, including brown rice and pastas that are made with whole wheat. VegetablesAll vegetables. FruitsAll fruits, but limit coconut. Meats and Other Protein SourcesLean, well-trimmed beef, veal, pork, and busby. Chicken and turkey without skin. All fish and shellfish. Wild duck, rabbit, pheasant, and venison. Egg whites or low-cholesterol egg substitutes. Dried beans, peas, lentils, and tofu. Seeds and most nuts. DairyLow-fat or nonfat cheeses, including ricotta, string, and mozzarella. Skim or 1% milk that is liquid, powdered, or evaporated. Buttermilk that is made with low-fat milk. Nonfat or low-fat yogurt. BeveragesMineral water. Diet carbonated beverages. Sweets and DessertsSherbets and fruit ices. Honey, jam, marmalade, jelly, and syrups. Meringues and gelatins. Pure sugar candy, such as hard candy, jelly beans, gumdrops, mints, marshmallows, and small amounts of dark chocolate. Demetrius food cake. Eat all sweets and desserts in moderation. Fats and OilsNonhydrogenated (trans-free) margarines. Vegetable oils, including soybean, sesame, sunflower, olive, peanut, safflower, corn, canola, and cottonseed. Salad dressings or mayonnaise made with a vegetable oil. Limit added fats and oils that you use for cooking, baking, salads, and as spreads. OtherCocoa powder. Coffee and tea. All seasonings and condiments. The items listed above may not be a complete list of recommended foods or beverages. Contact your dietitian for more options. What foods are not recommended? GrainsBreads that are made with saturated or trans fats, oils, or whole milk. Croissants. Butter rolls. Cheese breads. Sweet rolls. Donuts. Buttered popcorn. Mack mein noodles. High-fat crackers, such as cheese or butter crackers. Meats and Other Protein SourcesFatty meats, such as hotdogs, short ribs, sausage, spareribs, jacobs, rib eye roast or steak, and mutton. High-fat deli meats, such as salami and bologna. Caviar. Domestic duck and goose. Organ meats, such as kidney, liver, sweetbreads, and heart. DairyCream, sour cream, cream cheese, and creamed cottage cheese. Whole-milk cheeses, including blue (fredo), [place], Brie, Nate, Eritrean, Havarti, French, cheddar, Camembert, and Merino. Whole or 2% milk that is liquid, evaporated, or condensed. Whole buttermilk. Cream sauce or high-fat cheese sauce. Yogurt that is made from whole milk. BeveragesRegular sodas and juice drinks with added sugar. Sweets and DessertsFrosting. Pudding. Cookies. Cakes other than demetrius food cake. Candy that has milk chocolate or white chocolate, hydrogenated fat, butter, coconut, or unknown ingredients. Buttered syrups. Full-fat ice cream or ice cream drinks. Fats and OilsGravy that has suet, meat fat, or shortening. [place] butter, hydrogenated oils, palm oil, coconut oil, palm kernel oil. These can often be found in baked products, candy, fried foods, nondairy creamers, and whipped toppings. Solid fats and shortenings, including jacobs fat, salt pork, lard, and butter. Nondairy cream substitutes, such as coffee creamers and sour cream substitutes. Salad dressings that are made of unknown oils, cheese, or sour cream. The items listed above may not be a complete list of foods and beverages to avoid. Contact your dietitian for more information. This information is not intended to replace advice given to you by your health care provider. Make sure you discuss any questions you have with your health care provider. Document Released: 04/03/2013 Document Revised: 03/10/2017 Document Reviewed: 03/27/2015 ? 2017 Elsevier Radiology Angiogram An angiogram, also called angiography, is a procedure used to look at the blood vessels. In this procedure, dye is injected through a long, thin tube (catheter) into an artery. X-rays are then taken. The X-rays will show if there is a blockage or problem in a blood vessel. Tell a health care provider about: ??? Any allergies you have, including allergies to shellfish or contrast dye. ??? All medicines you are taking, including vitamins, herbs, eye drops, creams, and [id number]-bvlhzle medicines. ??? Any problems you or family members have had with anesthetic medicines. ??? Any blood disorders you have. ??? Any surgeries you have had. ??? Any previous kidney problems or failure you have had. ??? Any medical conditions you have. ??? Possibility of , if this applies. What are the risks? Generally, an angiogram is a safe procedure. However, as with any procedure, problems can occur. Possible problems include: ??? Injury to the blood vessels, including rupture or bleeding. ??? Infection or bruising at the catheter site. ??? Allergic reaction to the dye or contrast used. ??? Kidney damage from the dye or contrast used. ??? Blood clots that can lead to a stroke or heart attack. What happens before the procedure? Do noteat or drink after midnight on the night before the procedure, or as directed by your health care provider. ??? Ask your health care provider if you may drink enough water to take any needed medicines the morning of the procedure. What happens during the procedure? You may be given a medicine to help you relax (sedative) before and during the procedure. This medicine is given through an IV access tube that is inserted into one of your veins. ??? The area where the catheter will be inserted will be washed and shaved. This is usually done in the groin but may be done in the fold of your arm (near your elbow) or in the wrist. ??? A medicine will be given to numb the area where the catheter will be inserted (local anesthetic). ??? The catheter will be inserted with a guide wire into an artery. The catheter is guided by using a type of X-ray (fluoroscopy) to the blood vessel being examined. ??? Dye is then injected into the catheter, and X-rays are taken. The dye helps to show where any narrowing or blockages are located. What happens after the procedure? If the procedure is done through the leg, you will be kept in bed lying flat for several hours. You will be instructed to not bend or cross your legs. ??? The insertion site will be checked frequently. ??? The pulse in your feet or wrist will be checked frequently. ??? Additional blood tests, X-rays, and electrocardiography may be done. ??? You may need to stay in the hospital overnight for observation. This information is not intended to replace advice given to you by your health care provider. Make sure you discuss any questions you have with your health care provider. Document Released: 07/13/2006 Document Revised: 03/16/2017 Document Reviewed: 03/06/2014 Elsevier Interactive Patient Education ? 2017 [employer] documented in this encounter Plan of Treatment Not on file documented as of this encounter Visit Diagnoses Not on filedocumented in this encounter Care Teams Oracle Brm Developer Relationship Specialty Start Date End Date Jay Howell MD [address] [place] [phone] PCP - General Emergency Medicine 11/12/23 documented as of this encounter
--- OUTSIDE RECORDS SUMMARY | 2025-07-12 08:41 | XMS_ITS | Encounter Summary ---
Author Organization [employer] ([place], [place], [place], [place]) Address [address] [place] [address] Care Team Providers Care Dramatic Reader Name Role Phone Jay Howell MD Primary Care Provider [phone] Encounter Details Date Type Department Care Team (Late st Contact Info) Description 12/21/2018 Transcribed Document [facility] [place] [address] [place] [address] ProviderJessie MD [address] [place] [address] Social History Tobacco Use Types Packs/Day Years Used Date Smoking Tobacco: Never Assessed Comments Unknown Sex and Gender Information Value Date Recorded Sex Assigned at Not on file Legal Sex Female 7:30 PM CDT Gender Identity Not on file Sexual Orientation Not on file documented as of this encounter Miscellaneous Notes * Cerner Conversion Note - Jessie ProviderMD - 12/21/2018 11:46 AM 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 Entered On: 12/21/2018 11:46 EST Performed On: 12/21/2018 11:46 EST by Dinora Vieira Rn Discharge Documentation Discharge Date/Time : 12/21/2018 12:16 EST Accompanied By, Discharge : Spouse Teaching Method : Printed materials Dinora Vieira Rn - 12/21/2018 12:16 EST Medications Given to Patient : No Prescriptions Given to Patient : Yes Dinora Vieira Rn - 12/21/2018 11:47 EST Discharge Instructions Reviewed With, Opportunity For Questions Given : Patient, Spouse Dinora Vieira, Rn - 12/21/2018 12:16 EST Number of Prescriptions Given : 5 Dinora Vieira Rn - 12/21/2018 11:47 EST Patient Disposition, General : Discharge Discharge To : Home with ambulatory/outpatient follow-up Mode Of Departure, General Discharge : Private vehicle IV Discontinued : Yes Dinora Vieira Rn - 12/21/2018 11:46 EST Electronically signed by [facility], [facility] Conversion Auxiliary Power Equipment Operator Cerner at 02/04/2023 2:08 PM CDT documented in this encounter Plan of Treatment Not on file documented as of this encounter Visit Diagnoses Not on filedocumented in this encounter Care Teams Dramatic Reader Relationship Specialty Start Date End Date Jay Howell MD [address] [place] [phone] PCP - General Emergency Medicine 11/12/23 documented as of this encounter
--- OUTSIDE RECORDS SUMMARY | 2025-07-12 08:41 | XMS_ITS | Encounter Summary ---
Author Organization [employer] ([place], [place], [place], [place]) Address [address] [place] [address] Care Team Providers Care Jewel Staker Name Role Phone Jay Howell MD Primary Care Provider [phone] Encounter Details Date Type Department Care Team (Late st Contact Info) Description 12/21/2018 Transcribed Document [facility] Family [place] [facility] [address] ProviderJessie MD [address] [place] [id number] Social History Tobacco Use Types Packs/Day Years Used Date Smoking Tobacco: Never Assessed Comments Unknown Sex and Gender Information Value Date Recorded Sex Assigned at Not on file Legal Sex Female 7:30 PM CDT Gender Identity Not on file Sexual Orientation Not on file documented as of this encounter Miscellaneous Notes * Cerner Conversion Note - Jessie Yuen MD - 12/21/2018 11:47 AM [employer] [address] , [place], [place] [id number] Patient Copy Patient Information: Name: SKYLER MONTOYA Current Date: 12/21/2018 11:47:13 : 1940 Patient Address: [address] [place] [id number] Patient Attending Physician: FREDY YAÑEZ MD-CAR Primary Care Provider: TAAR CHEN (REF), -MED Primary Care Provider Discharge Diagnosis: CAD (coronary artery disease); DM (diabetes mellitus); Exertional angina; HLD (hyperlipidemia); HTN (hypertension); Hx of CABG; DANTE (obstructive sleep apnea); Paroxysmal A-fib Weight on Admission: 158 lb, 0 oz Comment: Follow-up Instructions: With: Address: When: [facility] [address], [place] [address] Business (1) In 1 month 01/21/2019 With: Address: When: [facility] [address], [address] [place], [place] [id number] Business (1) Within 2 to 5 weeks Comments: Office to call with appoint/instructions Discharge Instructions: Immunizations Documented During Stay: No Immunizations Found Special Instructions: STOP losartan (cozaar) HOLD coumadin (warfarin) now and restart on 12-24-18 Heart Failure Discharge Instructions (if any): Stroke Related Discharge Instructions (if any): Warfarin Related Discharge Instructions (if any): Final Medication List: Printed Prescriptions amLODIPine (amLODIPine 10 mg oral tablet) 1 Tablet(s) Oral Every Day. Refills: 1. clopidogrel (Plavix 75 mg oral tablet) 1 Tablet(s) Oral Every Day. Refills: 1. hydrALAZINE (hydrALAZINE 10 mg oral tablet) 1 Tablet(s) Oral Two Times A Day. Refills: 1. ranolazine (Ranexa 500 mg oral tablet, extended release) 2 Tablet(s) Oral Two Times A Day. Refills: 1. valsartan (Diovan 160 mg oral tablet) 1 Tablet(s) Oral Every Day. Refills: 1. Other Medications ALPRAZolam (Xanax 0.25 mg oral tablet) 1 Tablet(s) Oral At Bedtime as needed Insomnia. acetaminophen-HYDROcodone (acetaminophen-HYDROcodone 325 mg-5 mg oral tablet) 1 Tablet(s) Oral Two Times A Day as needed for pain. aspirin (aspirin 81 mg oral tablet) 1 Tablet(s) Oral Every Day. Patient Instructions: Stop taking 1 month from discharge atorvastatin (atorvastatin 80 mg oral tablet) 1 Tablet(s) Oral At Bedtime. brimonidine-timolol ophthalmic (Combigan 0.2%-0.5% ophthalmic solution) 1 Drop(s) Eye Right Two Times A Day. carvedilol 3.125 Milligram(s) Oral Two Times A Day. difluprednate ophthalmic (Durezol 0.05% ophthalmic emulsion) 1 Drop(s) Eye Right Four Times A Day. dorzolamide ophthalmic (dorzolamide 2% ophthalmic solution) 1 Drop(s) Eyes Both Two Times A Day. levETIRAcetam (levETIRAcetam 250 mg oral tablet) 1 Tablet(s) Oral Two Times A Day. metFORMIN (metformin 500 mg oral tablet) 1 Tablet(s) Oral Two Times A Day. multivitamin (Multiple Vitamins oral tablet) 1 Tablet(s) Oral Every Day. nitroglycerin 0.3 Milligram(s) SubLINgual every 5 minutes as needed Chest Pain. omeprazole (omeprazole 40 mg oral delayed release capsule) 1 Capsule(s) Oral Every Day. warfarin (Coumadin) 2 Milligram(s) Oral Every Day. Patient Instructions: Start taking 3 days from discharge. warfarin (warfarin 1 mg oral tablet) See Instructions. 1MG Tab Oral Daily MON, WED, FRI. Patient Instructions: Start taking 3 days from discharge Patient Allergies: Macrodantin; morphine; nitrofurantoin Medication Instructions: Take your medications faithfully. Do NOT skip medication. Do NOT stop taking medications without the direction of a physician. Carry a list of your medications with you at all times, and take this medication list with you to your first follow up visit. Report any side effects. Avoid herbal remedies unless discussed with your physician. As part of your treatment plan, your physician may have prescribed a limited course of a controlled substance. This medication may be given to help people with moderate or severe pain or for other medical conditions, but there are risks involved with treatment. Common side effects may include nausea, constipation, drowsiness, sweating, itching, dry mouth, and rash. More serious side effects may include cognitive and motor impairment, like problems with thinking, concentrating, alertness, and movement (e.g. slowed reflexes), and driving and operating heavy machinery can be dangerous. It is important for you to talk to your physician if you have these side effects or questions. These controlled substances can produce physical dependence and be habit-forming if taken for an extended period of time, which means that the body has gotten used to them and may experience withdrawal symptoms if they are abruptly stopped. Withdrawal symptoms can include runny nose, sweating, goose bumps, diarrhea, abdominal cramping, rapid heartbeat, difficulty sleeping, and nervousness. Patient education materials: Heart-Healthy Eating Plan Introduction Heart-healthy meal planning [...] What foods can I eat? GrainsBreads, including Chinese, white, jie, wheat, raisin, rye, oatmeal, and Sami. Tortillas that are neither fried nor made with lard or trans fat. Low-fat rolls, including hotdog and hamburger buns and Micronesian muffins. Biscuits. Muffins. Waffles. Pancakes. Light popcorn. Whole-grain cereals. Flatbread. Becki toast. Pretzels. Breadsticks. Rusks. Low-fat snacks. Low-fat [...] cottage cheese. Whole-milk cheeses, including blue (fredo), Robeson Armand, Brie, Nate, French, Havarti, Malagasy, cheddar, Camembert, and Benton. Whole or 2% milk that is liquid, [...] that has suet, meat fat, or shortening. Mosinee butter, hydrogenated oils, palm oil, coconut oil, [...] 03/10/2017 Document Reviewed: 03/27/2015 ? 2017 Elsevier Coronary Artery Disease, Female Coronary artery disease [...] can cause a heart attack (myocardial infarction, [place]). CAD is a leading cause of for [...] 12/25/2012 Document Revised: 03/10/2017 Document Reviewed: 02/04/2015 [employer] Patient Education ? 2017 [employer] Groin Site Care Refer to this sheet [...] 11/05/2011 Document Revised: 12/25/2012 Document Reviewed: 11/05/2011 ExitCare? Patient Information ?2013 [employer]. Angiogram An angiogram, also called angiography, is [...] including vitamins, herbs, eye drops, creams, and maym-yeu-eyidlic medicines. ??? Any problems you or family [...] 03/06/2014 Elsevier Interactive Patient Education ? 2017 [employer] Medication Leaflets: valsartan (elin LILY foster) Rivka What is the most important information I should know about valsartan? Do not use if you are . Stop using and tell your doctor right away if you become . Valsartan can cause injury or to the unborn baby if you take the medicine during your second or third trimester. If you have diabetes, do not use valsartan together with any medication that contains aliskiren (Amturnide, Tekturna, Tekamlo, Valturna). What is valsartan? Valsartan is an angiotensin II receptor antagonist. Valsartan keeps blood vessels from narrowing, which lowers blood pressure and improves blood flow. Valsartan is used to treat high blood pressure (hypertension) in adults and children who are at least 6 years old. Valsartan is also used in adults to treat heart failure, and to lower the risk of after a heart attack. Valsartan is sometimes given together with other blood pressure medications. Valsartan may also be used for purposes not listed in this medication guide. What should I discuss with my healthcare provider before taking valsartan? You should not use valsartan if you are allergic to it. To make sure valsartan is safe for you, tell your doctor if you have: ? kidney disease (or if you are on dialysis); ?? liver disease; ?? a heart condition other than one being treated with valsartan; ?? if you are on a mds-khoo-pdeo; ?? if you are dehydrated; or ?? if you have ever had a severe allergic reaction to any blood pressure medication. Do not use if you are . Stop using and tell your doctor right away if you become . Valsartan can cause injury or to the unborn baby if you take the medicine during your second or third trimester. Use effective control. It is not known whether valsartan passes into breast milk or if it could harm a nursing baby. You should not breast-feed while using this medicine. Valsartan should not be given to a child younger than 6 years old. How should I take valsartan? Follow all directions on your prescription label. Your doctor may occasionally change your dose to make sure you get the best results. Do not take this medicine in larger or smaller amounts or for longer than recommended. You may take valsartan with or without food. Take the medicine at the same time each day. If a child taking valsartan cannot swallow a capsule whole, your pharmacist can mix the medicine into a liquid. Shake this liquid well just before you measure a dose. Measure the liquid with a special dose-measuring spoon or medicine cup, not with a regular table spoon. If you do not have a dose-measuring device, ask your pharmacist for one. You may have very low blood pressure while taking valsartan. Call your doctor if you are sick with vomiting or diarrhea, or if you are sweating more than usual. Your blood pressure will need to be checked often. Your kidney function may also need to be checked. It may take 2 to 4 weeks of using this medicine before your blood pressure is under control. Keep using this medicine as directed, even if you feel well. High blood pressure often has no symptoms. You may need to use blood pressure medicine for the rest of your life. Talk with your doctor if your symptoms do not improve after 4 weeks of treatment. Store at room temperature away from moisture and heat. Read all patient information, medication guides, and instruction sheets provided to you. Ask your doctor or pharmacist if you have any questions. What happens if I miss a dose? Take the missed dose as soon as you remember. Skip the missed dose if it is almost time for your next scheduled dose. Do not take extra medicine to make up the missed dose. What happens if I overdose? Seek emergency medical attention or call the Poison Help line at . What should I avoid while taking valsartan? Drinking alcohol can further lower your blood pressure and may increase certain side effects of valsartan. Do not use potassium supplements or salt substitutes while you are taking valsartan, unless your doctor has told you to. Avoid getting up too fast from a sitting or lying position, or you may feel dizzy. Get up slowly and steady yourself to prevent a fall. What are the possible side effects of valsartan? Get emergency medical help if you have signs of an allergic reaction: hives; difficulty breathing; swelling of your face, lips, tongue, or throat. In rare cases, valsartan can cause a condition that results in the breakdown of skeletal muscle tissue, leading to kidney failure. Call your doctor right away if you have unexplained muscle pain, tenderness, or weakness especially if you also have fever, unusual tiredness, and dark colored urine. Also call your doctor at once if you have: ? shortness of breath (even with mild exertion); ?? little or no urinating, swelling, rapid weight gain; ?? weakness, confusion, increased thirst, loss of appetite, vomiting; ?? pounding heartbeats or fluttering in your chest; ?? a light-headed feeling, like you might pass out; or ?? high potassium--slow heart rate, weak pulse, muscle weakness, tingly feeling. Common side effects may include: ? headache, dizziness, tired feeling; ?? flu symptoms; ?? stomach pain, diarrhea; ?? back pain, joint pain; or ?? cough. This is not a complete list of side effects and others may occur. Call your doctor for medical advice about side effects. You may report side effects to FDA at 4-368-WXD-6637. What other drugs will affect valsartan? Tell your doctor about all your current medicines and any you start or stop using, especially: ? cyclosporine; ?? a diuretic (water pill); ?? lithium; ?? rifampin; ?? ritonavir; or ?? NSAIDs (nonsteroidal anti-inflammatory drugs)--aspirin, ibuprofen (Advil, Motrin), naproxen (Aleve), celecoxib, diclofenac, indomethacin, meloxicam, and others. This list is not complete. Other drugs may interact with valsartan, including prescription and dnop-zve-jdmtpne medicines, vitamins, and herbal products. Not all possible interactions are listed in this medication guide. Where can I get more information? Your pharmacist can provide more information about valsartan. Remember, keep this and all other medicines out of the reach of children, never share your medicines with others, and use this medication only for the indication prescribed. Every effort has been made to ensure that the information provided by [employer]') is accurate, up-to-date, and complete, but no guarantee is made to that effect. Drug information contained herein may be time sensitive. [employer] information has been compiled for use by healthcare practitioners and consumers in the [place] and therefore [employer] does not warrant that uses outside of the [place] are appropriate, unless specifically indicated otherwise. [employer]'s drug information does not endorse drugs, diagnose patients or recommend therapy. [employer]'s drug information is an informational resource designed to assist licensed healthcare practitioners in caring for their patients and/or to serve consumers viewing this service as a supplement to, and not a substitute for, the expertise, skill, knowledge and judgment of healthcare practitioners. The absence of a warning for a given drug or drug combination in no way should be construed to indicate that the drug or drug combination is safe, effective or appropriate for any given patient. [facility] does not assume any responsibility for any aspect of healthcare administered with the aid of information [facility] provides. The information contained herein is not intended to cover all possible uses, directions, precautions, warnings, drug interactions, allergic reactions, or adverse effects. If you have questions about the drugs you are taking, check with your doctor, nurse or pharmacist. Copyright 2113-5972 [facility]. Version: 16.05. Revision Date: 09/08/2016. hydralazine (bob pleitez) Apresoline What is the most important information I should know about hydralazine? You should not use this medicine if you have coronary artery disease, or rheumatic heart disease affecting the mitral valve. What is hydralazine? Hydralazine is a vasodilator that works by relaxing the muscles in your blood vessels to help them dilate (widen). This lowers blood pressure and allows blood to flow more easily through your veins and arteries. Hydralazine is used to treat high blood pressure (hypertension). Hydralazine may also be used for purposes not listed in this medication guide. What should I discuss with my healthcare provider before taking hydralazine? You should not use hydralazine if you are allergic to it, or if you have: ? coronary artery disease; or ?? rheumatic heart disease affecting the mitral valve. To make sure hydralazine is safe for you, tell your doctor if you have ever had: ? kidney disease; ?? systemic lupus erythematosus; ?? angina (chest pain); or ?? a stroke. It is not known whether this medicine will harm an unborn baby. Tell your doctor if you are or plan to become . Hydralazine can pass into breast milk, but effects on the nursing baby are not known. Tell your doctor if you are breast-feeding. Hydralazine is not approved for use by anyone younger than 18 years old. How should I take hydralazine? Follow all directions on your prescription label. Do not take this medicine in larger or smaller amounts or for longer than recommended. Your blood pressure will need to be checked often. You may also need frequent blood tests. Keep using this medicine as directed, even if you feel well. High blood pressure often has no symptoms. You may need to use blood pressure medicine for the rest of your life. Store at room temperature away from moisture and heat. What happens if I miss a dose? Take the missed dose as soon as you remember. Skip the missed dose if it is almost time for your next scheduled dose. Do not take extra medicine to make up the missed dose. What happens if I overdose? Seek emergency medical attention or call the Poison Help line at . Overdose symptoms may include rapid heartbeats, warmth or tingling under your skin, chest pain, or fainting. What should I avoid while taking hydralazine? Avoid getting up too fast from a sitting or lying position, or you may feel dizzy. Get up slowly and steady yourself to prevent a fall. What are the possible side effects of hydralazine? Get emergency medical help if you have signs of an allergic reaction: hives; difficult breathing; swelling of your face, lips, tongue, or throat. Call your doctor at once if you have: ? chest pain or pressure, pain spreading to your jaw or shoulder; ?? fast or pounding heartbeats; ?? a light-headed feeling, like you might pass out; ?? numbness, tingling, or burning pain in your hands or feet; ?? painful or difficult urination; ?? little or no urination; or ?? lupus-like syndrome--joint pain or swelling with fever, swollen glands, muscle aches, chest pain, vomiting, unusual thoughts or behavior, and patchy skin color. Common side effects may include: ? chest pain, fast heart rate; ?? headache; or ?? nausea, vomiting, diarrhea, loss of appetite. This is not a complete list of side effects and others may occur. Call your doctor for medical advice about side effects. You may report side effects to FDA at 9-076-OXK-4620. What other drugs will affect hydralazine? Tell your doctor about all your current medicines and any you start or stop using, especially: ? diazoxide (an injectable blood pressure medication); or ?? an MAO inhibitor--isocarboxazid, linezolid, methylene blue injection, phenelzine, rasagiline, selegiline, tranylcypromine, and others. This list is not complete. Other drugs may interact with hydralazine, including prescription and cfhg-vha-qaigpji medicines, vitamins, and herbal products. Not all possible interactions are listed in this medication guide. Where can I get more information? Your pharmacist can provide more information about hydralazine. Remember, keep this and all other medicines out of the reach of children, never share your medicines with others, and use this medication only for the indication prescribed. Every effort has been made to ensure that the information provided by [employer] is accurate, up-to-date, and complete, but no guarantee is made to that effect. Drug information contained herein may be time sensitive. [employer] information has been compiled for use by healthcare practitioners and consumers in the [place] and therefore [employer] does not warrant that uses outside of the [place] are appropriate, unless specifically indicated otherwise. [employer]'s drug information does not endorse drugs, diagnose patients or recommend therapy. [employer] drug information is an informational resource designed to assist licensed healthcare practitioners in caring for their patients and/or to serve consumers viewing this service as a supplement to, and not a substitute for, the expertise, skill, knowledge and judgment of healthcare practitioners. The absence of a warning for a given drug or drug combination in no way should be construed to indicate that the drug or drug combination is safe, effective or appropriate for any given patient. [employer] does not assume any responsibility for any aspect of healthcare administered with the aid of information [employer] provides. The information contained herein is not intended to cover all possible uses, directions, precautions, warnings, drug interactions, allergic reactions, or adverse effects. If you have questions about the drugs you are taking, check with your doctor, nurse or pharmacist. Copyright 9744-4965 [employer]. Version: 5.01. Revision Date: 10/26/2017. amlodipine (am CAS Mao What is the most important information I should know about amlodipine? Follow all directions on your medicine label and package. Tell each of your healthcare providers about all your medical conditions, allergies, and all medicines you use. What is amlodipine? Amlodipine is a calcium channel melinda that dilates (widens) blood vessels and improves blood flow. Amlodipine is used to treat chest pain (angina) and other conditions caused by coronary artery disease. Amlodipine is also used to treat high blood pressure (hypertension). Lowering blood pressure may lower your risk of a stroke or heart attack. Amlodipine is for use in adults and children who are at least 6 years old. Amlodipine may also be used for purposes not listed in this medication guide. What should I discuss with my healthcare provider before taking amlodipine? You should not take amlodipine if you are allergic to it. To make sure amlodipine is safe for you, tell your doctor if you have: ? liver disease; or ?? a heart valve problem called aortic stenosis. It is not known whether this medicine will harm an unborn baby. Tell your doctor if you are or plan to become . Amlodipine can pass into breast milk, but effects on the nursing baby are not known. Tell your doctor if you are breast-feeding. Amlodipine is not approved for use by anyone younger than 6 years old. How should I take amlodipine? Follow all directions on your prescription label. Your doctor may occasionally change your dose. Do not use this medicine in larger or smaller amounts or for longer than recommended. You may take amlodipine with or without food. Take the medicine at the same time each day. Your blood pressure will need to be checked often. Your chest pain may become worse when you first start taking amlodipine or when your dose is increased. Call your doctor if your chest pain is severe or ongoing. If you are being treated for high blood pressure, keep using amlodipine even if you feel well. High blood pressure often has no symptoms. You may need to use blood pressure medicine for the rest of your life. Your hypertension or heart condition may be treated with a combination of drugs. Use all medications as directed by your doctor. Read the medication guide or patient instructions provided with each medication. Do not change your doses or stop taking any of your medications without your doctor's advice. This is especially important if you also take nitroglycerin. Amlodipine is only part of a complete program of treatment that may also include diet, exercise, weight control, and other medications. Follow your diet, medication, and exercise routines very closely. Store at room temperature away from moisture, heat, and light. What happens if I miss a dose? Take the missed dose as soon as you remember. If you are more than 12 hours late, skip the missed dose. Do not take extra medicine to make up the missed dose. What happens if I overdose? Seek emergency medical attention or call the Poison Help line at . Overdose symptoms may include rapid heartbeats, redness or warmth in your arms or legs, or fainting. What should I avoid while taking amlodipine? Avoid getting up too fast from a sitting or lying position, or you may feel dizzy. Get up slowly and steady yourself to prevent a fall. What are the possible side effects of amlodipine? Get emergency medical help if you have signs of an allergic reaction: hives; difficulty breathing; swelling of your face, lips, tongue, or throat. In rare cases, when you first start taking amlodipine, your angina may get worse or you could have a heart attack. Seek emergency medical attention or call your doctor right away if you have symptoms such as: chest pain or pressure, pain spreading to your jaw or shoulder, nausea, sweating. Call your doctor at once if you have: ? pounding heartbeats or fluttering in your chest; ?? worsening chest pain; ?? swelling in your feet or ankles; ?? severe drowsiness; or ?? a light-headed feeling, like you might pass out. Common side effects may include: ? dizziness; ?? feeling tired; ?? stomach pain, nausea; or ?? flushing (warmth, redness, or tingly feeling). This is not a complete list of side effects and others may occur. Call your doctor for medical advice about side effects. You may report side effects to FDA at 1-557-BZX-2220. What other drugs will affect amlodipine? Tell your doctor about all your current medicines and any you start or stop using, especially: ? nitroglycerin; ?? simvastatin (Zocor, Simcor, Vytorin); or ?? any other heart or blood pressure medications. This list is not complete. Other drugs may interact with amlodipine, including prescription and wuqh-jnf-fknpnlx medicines, vitamins, and herbal products. Not all possible interactions are listed in this medication guide. Where can I get more information? Your pharmacist can provide more information about amlodipine. Remember, keep this and all other medicines out of the reach of children, never share your medicines with others, and use this medication only for the indication prescribed. Every effort has been made to ensure that the information provided by [employer] is accurate, up-to-date, and complete, but no guarantee is made to that effect. Drug information contained herein may be time sensitive. [employer] information has been compiled for use by healthcare practitioners and consumers in the [place] and therefore [employer] does not warrant that uses outside of the [place] are appropriate, unless specifically indicated otherwise. [employer] drug information does not endorse drugs, diagnose patients or recommend therapy. [employer] drug information is an informational resource designed to assist licensed healthcare practitioners in caring for their patients and/or to serve consumers viewing this service as a supplement to, and not a substitute for, the expertise, skill, knowledge and judgment of healthcare practitioners. The absence of a warning for a given drug or drug combination in no way should be construed to indicate that the drug or drug combination is safe, effective or appropriate for any given patient. [employer] does not assume any responsibility for any aspect of healthcare administered with the aid of information [employer] provides. The information contained herein is not intended to cover all possible uses, directions, precautions, warnings, drug interactions, allergic reactions, or adverse effects. If you have questions about the drugs you are taking, check with your doctor, nurse or pharmacist. Copyright 6707-9545 [employer]. Version: 14.. Revision Date: 01/24/2017. clopidogrel (kloe PID oh grel) Plavix What is the most important information I should know about clopidogrel? You should not use this medicine if you have any active bleeding such as a stomach ulcer or bleeding in the brain. Clopidogrel increases your risk of bleeding, which can be severe or life-threatening. Call your doctor or seek emergency medical attention if you have bleeding that will not stop, if you have blood in your urine, black or bloody stools, or if you cough up blood or vomit that looks like coffee grounds. Do not stop taking clopidogrel without first talking to your doctor, even if you have signs of bleeding. Stopping clopidogrel may increase your risk of a heart attack or stroke. What is clopidogrel? Clopidogrel is used to lower your risk of having a stroke, blood clot, or serious heart problem after you've had a heart attack, severe chest pain (angina), or circulation problems. Clopidogrel may also be used for purposes not listed in this medication guide. What should I discuss with my healthcare provider before taking clopidogrel? You should not use clopidogrel if you are allergic to it, or if you have: ? any active bleeding; or ?? a stomach ulcer or bleeding in the brain (such as from a head injury). Tell your doctor if you have ever had: ? an ulcer in your stomach or intestines; or ?? a bleeding disorder or blood clotting disorder. Clopidogrel may not work as well if you have certain genetic factors that affect the breakdown of this medicine in your body. Your doctor may perform a blood test to make sure clopidogrel is right for you. This medicine is not expected to harm an unborn baby. However, taking clopidogrel within 1 week before childbirth can cause bleeding in the mother. Tell your doctor if you are or plan to become . You should not breast-feed while using this medicine. How should I take clopidogrel? Follow all directions on your prescription label and read all medication guides or instruction sheets. Use these medicines exactly as directed. Clopidogrel can be taken with or without food. Clopidogrel is sometimes taken together with aspirin. Take aspirin only if your doctor tells you to. Clopidogrel keeps your blood from coagulating (clotting) and can make it easier for you to bleed, even from a minor injury. Contact your doctor or seek emergency medical attention if you have any bleeding that will not stop. You may need to stop using clopidogrel for a short time before a surgery, medical procedure, or dental work. Any healthcare provider who treats you should know that you are taking clopidogrel. Do not stop taking clopidogrel without first talking to your doctor, even if you have signs of bleeding. Stopping the medicine could increase your risk of a heart attack or stroke. Store at room temperature away from moisture and heat. What happens if I miss a dose? Take the medicine as soon as you can, but skip the missed dose if it is almost time for your next dose. Do not take two doses at one time. What happens if I overdose? Seek emergency medical attention or call the Poison Help line at . Overdose can cause excessive bleeding. What should I avoid while taking clopidogrel? Avoid alcohol. It can increase your risk of stomach bleeding. Avoid activities that may increase your risk of bleeding or injury. Use extra care to prevent bleeding while shaving or brushing your teeth. If you also take aspirin: Ask a doctor or pharmacist before using medicines for pain, fever, swelling, or cold/flu symptoms. They may contain ingredients similar to aspirin (such as salicylates, ibuprofen, ketoprofen, or naproxen). Taking these products together can increase your risk of bleeding. What are the possible side effects of clopidogrel? Get emergency medical help if you have signs of an allergic reaction: hives; difficult breathing; swelling of your face, lips, tongue, or throat. Clopidogrel increases your risk of bleeding, which can be severe or life-threatening. Call your doctor or seek emergency medical attention if you have bleeding that will not stop, if you have blood in your urine, black or bloody stools, or if you cough up blood or vomit that looks like coffee grounds. Also call your doctor at once if you have: ? pale skin, easy bruising, purple spots under your skin or in your mouth; ?? jaundice (yellowing of your skin or eyes); ?? fast heartbeats, shortness of breath; ?? headache, fever, weakness, feeling tired; ?? little or no urination; ?? a seizure; or ?? signs of a blood clot--sudden numbness or weakness, confusion, problems with vision or speech. This is not a complete list of side effects and others may occur. Call your doctor for medical advice about side effects. You may report side effects to FDA at 5-409-SRT-4308. What other drugs will affect clopidogrel? Certain other medicines may increase your risk of bleeding, including aspirin. Avoid taking aspirin unless your doctor tells you to. Tell your doctor about all your other medicines, especially: ? any other medicines to treat or prevent blood clots; ?? a stomach acid chip loft worker such as omeprazole, Nexium, or Prilosec; ?? an antidepressant; ?? an opioid medication; ?? a blood thinner--warfarin, Coumadin, Jantoven; or ?? NSAIDs (nonsteroidal anti-inflammatory drugs)--ibuprofen (Advil, Motrin), naproxen (Aleve), celecoxib, diclofenac, indomethacin, meloxicam, and others. This list is not complete. Other drugs may affect clopidogrel, including prescription and rtih-qbd-vyotjjs medicines, vitamins, and herbal products. Not all possible drug interactions are listed here. Where can I get more information? Your pharmacist can provide more information about clopidogrel. Remember, keep this and all other medicines out of the reach of children, never share your medicines with others, and use this medication only for the indication prescribed. Every effort has been made to ensure that the information provided by [employer] is accurate, up-to-date, and complete, but no guarantee is made to that effect. Drug information contained herein may be time sensitive. [employer] information has been compiled for use by healthcare practitioners and consumers in the [place] and therefore [employer] does not warrant that uses outside of the [place] are appropriate, unless specifically indicated otherwise. [employer]'s drug information does not endorse drugs, diagnose patients or recommend therapy. [employer] drug information is an informational resource designed to assist licensed healthcare practitioners in caring for their patients and/or to serve consumers viewing this service as a supplement to, and not a substitute for, the expertise, skill, knowledge and judgment of healthcare practitioners. The absence of a warning for a given drug or drug combination in no way should be construed to indicate that the drug or drug combination is safe, effective or appropriate for any given patient. [employer] does not assume any responsibility for any aspect of healthcare administered with the aid of information [employer] provides. The information contained herein is not intended to cover all possible uses, directions, precautions, warnings, drug interactions, allergic reactions, or adverse effects. If you have questions about the drugs you are taking, check with your doctor, nurse or pharmacist. Copyright 5923-5738 [employer]. Version: 15.01. Revision Date: 08/07/2018. ranolazine (ra FAUSTO la maik) Ranexa What is the most important information I should know about ranolazine? You should not take ranolazine if you have cirrhosis of the liver. Serious drug interactions can occur when certain medicines are used together with ranolazine. Tell each of your healthcare providers about all medicines you use now, and any medicine you start or stop using. What is ranolazine? Ranolazine is an anti-anginal medication. It works by improving blood flow to help the heart work more efficiently. Ranolazine is used to treat chronic angina (chest pain). Ranolazine is not for use during an acute (emergency) attack of angina. Ranolazine may also be used for purposes not listed in this medication guide. What should I discuss with my health care provider before taking ranolazine? You should not take ranolazine if you are allergic to it, or if you have cirrhosis of the liver. Many other drugs can interact with ranolazine and should not be used at the same time. Your doctor may need to change your treatment plan if you use any of the following drugs: ? clarithromycin; ?? nefazodone; ?? Cerritos's wort; ?? antifungal medicine--itraconazole, ketoconazole; ?? HIV or AIDS medicine--indinavir, lopinavir/ritonavir, nelfinavir, ritonavir, saquinavir; ?? tuberculosis medicine--rifabutin, rifampin, rifapentine; or ?? seizure medicine-carbamazepine, phenobarbital, phenytoin. To make sure ranolazine is safe for you, tell your doctor if you have: ? a heart rhythm disorder; ?? liver disease; ?? kidney disease; or ?? a personal or family history of long QT syndrome. It is not known whether this medicine will harm an unborn baby. Tell your doctor if you are or plan to become . It is not known whether ranolazine passes into breast milk or if it could harm a nursing baby. Tell your doctor if you are breast-feeding a baby. How should I take ranolazine? Follow all directions on your prescription label. Your doctor may occasionally change your dose to make sure you get the best results. Do not use this medicine in larger or smaller amounts or for longer than recommended. Ranolazine may be taken with or without food. Do not crush, chew, or break an extended-release tablet. Swallow it whole. Call your doctor if your symptoms do not improve, or if they get worse while using ranolazine. Chronic angina is often treated with a combination of drugs. Use all medications as directed by your doctor. Read the medication guide or patient instructions provided with each medication. Do not change your doses or medication schedule without your doctor's advice. Store at room temperature away from moisture and heat. What happens if I miss a dose? Take the missed dose as soon as you remember. Skip the missed dose if it is almost time for your next scheduled dose. Do not take extra medicine to make up the missed dose. What happens if I overdose? Seek emergency medical attention or call the Poison Help line at . Overdose can cause nausea, vomiting, numbness or tingling, dizziness, double vision, confusion, or fainting. What should I avoid while taking ranolazine? Ranolazine may impair your thinking or reactions. Be careful if you drive or do anything that requires you to be alert. Grapefruit and grapefruit juice may interact with ranolazine and lead to unwanted side effects. Discuss the use of grapefruit products with your doctor. What are the possible side effects of ranolazine? Get emergency medical help if you have signs of an allergic reaction: hives; difficult breathing; swelling of your face, lips, tongue, or throat. Call your doctor at once if you have: ? a light-headed feeling, like you might pass out; ?? headache with chest pain and severe dizziness, fast or pounding heartbeats; or ?? kidney problems--little or no urination, painful or difficult urination, swelling in your feet or ankles, feeling tired or short of breath. Common side effects may include: ? nausea, constipation; ?? headache; or ?? dizziness. This is not a complete list of side effects and others may occur. Call your doctor for medical advice about side effects. You may report side effects to FDA at 6-365-MTP-8497. What other drugs will affect ranolazine? Many drugs can interact with ranolazine. Not all possible interactions are listed here. Tell your doctor about all your medications and any you start or stop using during treatment with ranolazine, especially: ? an antibiotic or antifungal medicine; ?? any other medicine to treat heart disease; ?? cholesterol-lowering medicine; ?? diabetes medication; ?? medicine to prevent organ transplant rejection; ?? medicine to treat a mental illness; or ?? medicine to treat or prevent nausea and vomiting caused by chemotherapy or radiation. This list is not complete and many other drugs can interact with ranolazine. This includes prescription and rtxh-kwz-zslhcbf medicines, vitamins, and herbal products. Give a list of all your medicines to any healthcare provider who treats you. Where can I get more information? Your pharmacist can provide more information about ranolazine. Remember, keep this and all other medicines out of the reach of children, never share your medicines with others, and use this medication only for the indication prescribed. Every effort has been made to ensure that the information provided by [employer] is accurate, up-to-date, and complete, but no guarantee is made to that effect. Drug information contained herein may be time sensitive. [employer] information has been compiled for use by healthcare practitioners and consumers in the [place] and therefore [employer] does not warrant that uses outside of the [place] are appropriate, unless specifically indicated otherwise. [employer]'s drug information does not endorse drugs, diagnose patients or recommend therapy. [employer] drug information is an informational resource designed to assist licensed healthcare practitioners in caring for their patients and/or to serve consumers viewing this service as a supplement to, and not a substitute for, the expertise, skill, knowledge and judgment of healthcare practitioners. The absence of a warning for a given drug or drug combination in no way should be construed to indicate that the drug or drug combination is safe, effective or appropriate for any given patient. [employer] does not assume any responsibility for any aspect of healthcare administered with the aid of information [employer] provides. The information contained herein is not intended to cover all possible uses, directions, precautions, warnings, drug interactions, allergic reactions, or adverse effects. If you have questions about the drugs you are taking, check with your doctor, nurse or pharmacist. Copyright 8746-4050 [employer]. Version: 11.. Revision Date: 12/04/2015. CIGARETTE SMOKING: The facts are clear, cigarette smoking will shorten your life. Smoking can cause many illnesses along the way. As a healthcare provider, we recommend that you stop smoking. Assistance with quitting is available by contacting 4-277-AYBG-NOW. This is a free resource providing counseling, support, and referral. Or you may contact your personal physician. 4 WAYS TO GET AHEAD OF SEPSIS SEPSIS is a MEDICAL EMERGENCY. Time matters! Infections put you and your family at risk for a life-threatening condition called sepsis. Sepsis is the body???s extreme response to an infection. It is life-threatening, and without timely treatment, sepsis can rapidly lead to tissue damage, organ failure, and . Sepsis happens when an infection you already have???in your skin, lungs, urinary tract or somewhere else???triggers a chain reaction throughout your body. 1 PREVENT INFECTIONS Take good care of chronic conditions. Talk to your doctor about getting the recommended vaccines. 2 PRACTICE GOOD HYGIENE Wash your hands frequently. Keep cuts or open sores clean and covered until they are healed. 3 KNOW THE SYMPTOMS Confusion or disorientation Shortness of breath High heart rate Fever, shivering, or feeling very cold Extreme pain or discomfort Clammy or sweaty skin 4 ACT FAST Get medical care IMMEDIATELY if you suspect sepsis or if you have an infection that???s not getting better or is getting worse. To learn more about sepsis and how to prevent infections, visit www.cdc.gov/sepsis. STROKE is an EMERGENCY [employer] ACT F.A.S.T! FACE ?? Facial droop ?? Uneven smile ARM ?? Arm numbness ?? Arm weakness SPEECH ?? Slurred speech ?? Difficulty speaking or understanding TIME ?? Call 911 and get to the hospital immediately Have the ambulance go to the nearest stroke center. STROKE Risk Factors High blood pressure High cholesterol Heart Disease Diabetes Smoking Heavy alcohol use Physical inactivity and obesity Atrial Fibrillation (irregular heartbeat) Family history of stroke Reminder: Be sure to sign up for the [employer] patient portal, which gives you 09/05 access to your medical information ??? including these discharge instructions ??? using your computer, smartphone, or tablet. Just go to [facility] [employer] [employer] to get started. Questions? Call . [facility] would like to thank you for allowing us to assist you with your healthcare needs. MICHELE Skaggs JUDY D, (or product support sales representative) have received the above patient education materials/instructions and have verbalized understanding: Patient Signature _ Date/Time Patient Special Education Paraprofessional Signature (if needed) Date/Time Clinician/Hospital Special Education Paraprofessional Signature (if needed) Date/Time Electronically signed by [facility], [facility] Conversion [employer] Furnace Loader Cerner at 02/04/2023 2:20 PM CDT documented in this encounter Plan of Treatment Not on file documented as of this encounter Visit Diagnoses Not on filedocumented in this encounter Care Teams Jewel Staker Relationship Specialty Start Date End Date Jay Howell MD [address] [place] [id number] PCP - General Emergency Medicine 11/12/23 documented as of this encounter
--- OUTSIDE RECORDS SUMMARY | 2025-07-12 08:41 | XMS_ITS | Encounter Summary ---
Author Organization [employer] ([place], [place], [place], [place]) Address [address] [place] [address] Care Team Providers Care Ad Taker Name Role Phone Jay Howell MD Primary Care Provider [phone] Encounter Details Date Type Department Care Team (Late st Contact Info) Description 06/12/2020 Transcribed Document [facility] [address] [place] [address] ProviderJessie MD [address] [place] [address] Social History Tobacco Use Types Packs/Day Years Used Date Smoking Tobacco: Never Assessed Comments Unknown Sex and Gender Information Value Date Recorded Sex Assigned at Not on file Legal Sex Female 7:30 PM CDT Gender Identity Not on file Sexual Orientation Not on file documented as of this encounter Miscellaneous Notes * Cerner Conversion Note - Jessie ProviderMD - 06/12/2020 9:23 PM CDT ED Triage Entered On: 06/12/2020 21:35 EDT Performed On: 06/12/2020 21:31 EDT by Roni Peralta RN ED Triage Across the Room Chief Complaint : pt here c/o chest pain and high blood pressure thats been going on for several days Triage Date/Time : 06/12/2020 21:31 EDT Roni Peralta RN - 06/12/2020 21:31 EDT DCP GENERIC CODE Tracking Acuity : 2 - Emergent Tracking Group : [facility] ED Roni Peralta RN - 06/12/2020 21:31 EDT Mode of Arrival : Ambulatory Transported to ED by : Walk in To Room Via : Wheelchair Accompanied By : Responsible adult ED Vital Signs : Document Height & Weight : Document ED Allergies : Document ED Reason for Visit : Document Tetanus Immunization : Less than 5 years Roni Peralta RN - 06/12/2020 21:31 EDT Infectious Disease History Has the patient ever been tested for COVID-19? : No, Patient stated Does patient have symptoms of COVID-19? : No COVID19 Screening : No Experiencing Infectious Disease Symptoms : No symptoms Physical contact outside [place] in the last 30 days : No Infectious Disease History : Chicken pox/Shingles, Measles, Mumps Tuberculosis Symptoms : None Roni Peralta RN - 06/12/2020 21:31 EDT Vital Signs ED Temperature Source : Oral Temperature Mode : Fahrenheit Temperature, Fahrenheit : 97.8 Deg F Clinical Temperature, C : 36.6 Deg C Oxygen Therapy Mode : Room air Peripheral Pulse Rate : 70 bpm Respiratory Rate : 16 Breaths/Min Systolic Blood Pressure : 208 mmHg (HI) Diastolic Blood Pressure : 89 mmHg Oxygen Saturation : 97 % Roni Peralta RN - 06/12/2020 21:31 EDT Allergy (As Of: 06/12/2020 21:35:03 EDT) Allergies (Active) Macrodantin Estimated Onset Date: Unspecified ; Created By: KENYON CHAMBERS RN; Reaction Status: Active ; Category: Drug ; Substance: Macrodantin ; Type: Allergy ; Updated By: KENYON CHAMBERS RN; Reviewed Date: 06/12/2020 21:32 EDT morphine Estimated Onset Date: Unspecified ; Reactions: rash, rash ; Created By: AUSTIN Nuñez; Reaction Status: Active ; Category: Drug ; Substance: morphine ; Type: Allergy ; Updated By: AUSTIN Nuñez; Reviewed Date: 06/12/2020 21:32 EDT nitrofurantoin Estimated Onset Date: Unspecified ; Reactions: blisters, blisters ; Created By: AUSTIN Nuñez; Reaction Status: Active ; Category: Drug ; Substance: nitrofurantoin ; Type: Allergy ; Updated By: AUSTIN Nuñez; Reviewed Date: 06/12/2020 21:32 EDT Diagnosis Control ED (As Of: 06/12/2020 21:35:03 EDT) Problems(Active) Apnea, sleep (SNOMED CT :577655258 ) Name of Problem: Apnea, sleep ; Recorder: JUAN LUIS GIL RN; Confirmation: Confirmed ; Classification: Medical ; Code: [id number] ; Contributor System: PowerChart ; Last Updated: 11/12/2014 10:12 EST ; Life Cycle Date: 11/12/2014 ; Life Cycle Status: Active ; Vocabulary: SNOMED CT Arthritis (SNOMED CT :5573546 ) Name of Problem: Arthritis ; Recorder: KENYON CHAMBERS RN; Confirmation: Confirmed ; Classification: Medical ; Code: 7034047 ; Contributor System: PowerChart ; Last Updated: 04/10/2016 8:04 EDT ; Life Cycle Date: 08/13/2013 ; Life Cycle Status: Active ; Vocabulary: SNOMED CT Atrial fibrillation with RVR (SNOMED CT :2509793334 ) Name of Problem: Atrial fibrillation with RVR ; Recorder: SANG RICO APRN; Confirmation: Confirmed ; Classification: Medical ; Code: 7465396188 ; Contributor System: PowerChart ; Last Updated: 04/10/2016 8:05 EDT ; Life Cycle Date: 04/10/2016 ; Life Cycle Status: Active ; Responsible Provider: SANG RICO APRN; Vocabulary: SNOMED CT Blood clot (SNOMED CT :620434842 ) Name of Problem: Blood clot ; Recorder: KENYON CHAMBERS RN; Confirmation: Confirmed ; Classification: Patient Stated ; Code: 442039889 ; Contributor System: PowerChart ; Last Updated: [...] Vocabulary: Patient Care Chest pain (SNOMED CT :13232556 ) Name of Problem: Chest pain ; Recorder: SANG RICO APRN; Confirmation: Complaint of ; Classification: Medical ; Code: 81409279 ; Contributor System: PowerChart ; Last Updated: 04/10/2016 8:05 EDT ; Life Cycle Status: Active ; Responsible Provider: SANG RICO APRN; Vocabulary: SNOMED CT Chronic anticoagulation (SNOMED CT :589068066 ) Name of Problem: Chronic anticoagulation ; Recorder: SANG RICO APRN; Confirmation: Confirmed ; Classification: Medical ; Code: 378641762 ; Contributor System: PowerChart ; Last Updated: 04/10/2016 8:05 EDT ; Life Cycle Date: 04/10/2016 ; Life Cycle Status: Active ; Responsible Provider: SANG RICO APRN; Vocabulary: SNOMED CT Clotting disorder (SNOMED CT :084434041 ) Name of Problem: Clotting disorder ; Recorder: KENYON CHAMBERS RN; Confirmation: Confirmed ; Classification: Patient Stated ; Code: 307826796 ; Contributor System: PowerChart ; Last Updated: 03/28/2014 19:29 EDT ; Life Cycle Date: 08/13/2013 ; Life Cycle Status: Active ; Vocabulary: SNOMED CT COPD (SNOMED CT :72248231 ) Name of Problem: COPD ; Recorder: KENYON CHAMBERS RN; Confirmation: Confirmed ; Classification: Medical ; Code: 61651583 ; Contributor System: PowerChart ; Last Updated: 04/10/2016 8:03 EDT ; Life Cycle Date: 08/13/2013 ; Life Cycle Status: Active ; Vocabulary: SNOMED CT Coronary artery disease (SNOMED CT :8554065939 ) Name of Problem: Coronary artery disease ; Recorder: KENYON CHAMBERS RN; Confirmation: Confirmed ; Classification: Medical ; Code: 4056649994 ; Contributor System: PowerChart ; Last Updated: 04/10/2016 8:03 EDT ; Life Cycle Date: 08/13/2013 ; Life Cycle Status: Active ; Vocabulary: SNOMED CT Diabetes mellitus (SNOMED CT :970369758 ) Name of Problem: Diabetes mellitus ; Recorder: KENYON CHAMBERS RN; Confirmation: Confirmed ; Classification: Medical ; Code: 653239873 ; Contributor System: PowerChart ; Last Updated: 04/10/2016 8:04 EDT ; Life Cycle Date: 08/13/2013 ; Life Cycle Status: Active ; Vocabulary: SNOMED CT Emphysema (SNOMED CT :780918938 ) Name of Problem: Emphysema ; Recorder: JUAN LUIS GIL RN; Confirmation: Confirmed ; Classification: Medical ; Code: 525300304 ; Contributor System: PowerChart ; Last Updated: 11/12/2014 10:11 EST ; Life Cycle Date: 11/12/2014 ; Life Cycle Status: Active ; Vocabulary: SNOMED CT GERD - Gastro-esophageal reflux disease (SNOMED CT :6355411530 ) Name of Problem: GERD - Gastro-esophageal reflux disease ; Recorder: KENYON CHAMBERS RN; Confirmation: Confirmed ; Classification: Medical ; Code: 9364104513 ; Contributor System: PowerChart ; Last Updated: [...] Patient Care High blood pressure (SNOMED CT :16291359 ) Name of Problem: High blood pressure ; Recorder: KENYON CHAMBERS RN; Confirmation: Confirmed ; Classification: Medical ; Code: 32796457 ; Contributor System: PowerChart ; Last Updated: 04/10/2016 8:03 EDT ; Life Cycle Date: 08/13/2013 ; Life Cycle Status: Active ; Vocabulary: SNOMED CT History of obstructive sleep apnea (IMO :90539645 ) Name of Problem: History of obstructive sleep apnea ; Recorder: SYSTEM, SYSTEM; Confirmation: Confirmed ; Classification: Medical ; Code: 44920060 ; Last Updated: 12/20/2018 12:01 EST ; Life Cycle Date: 12/20/2018 ; Life Cycle Status: Active ; Vocabulary: IMO Hx of pulmonary embolus (SNOMED CT :877017746 ) Name of Problem: Hx of pulmonary embolus ; Recorder: SANG RICO APRN; Confirmation: Confirmed ; Classification: Medical ; Code: 805076585 ; Contributor System: PowerChart ; Last Updated: 04/10/2016 8:05 EDT ; Life Cycle Date: 04/10/2016 ; Life Cycle Status: Active ; Responsible Provider: SANG RICO APRN; Vocabulary: SNOMED CT Hyperlipidemia (SNOMED CT :55172451 ) Name of Problem: Hyperlipidemia ; Recorder: KENYON CHAMBERS RN; Confirmation: Confirmed ; Classification: Medical ; Code: 44372503 ; Contributor System: [employer] VoiceChart ; Last Updated: 04/10/2016 8:03 EDT ; Life Cycle Date: 08/13/2013 ; Life Cycle Status: Active ; Vocabulary: SNOMED CT Multiple renal cysts (SNOMED CT :843095187 ) Name of Problem: Multiple renal cysts ; Recorder: KENYON CHAMBERS RN; Confirmation: Confirmed ; Classification: Medical ; Code: 511585381 ; Contributor System: PowerChart ; Last Updated: 04/10/2016 8:04 EDT ; Life Cycle Date: 08/13/2013 ; Life Cycle Status: Active ; Vocabulary: SNOMED CT Stented coronary artery (SNOMED CT :3893647951 ) Name of Problem: Stented coronary artery ; Recorder: KENYON CHAMBERS RN; Confirmation: Confirmed ; Classification: Medical ; Code: 8329291352 ; Contributor System: PowerChart ; Last Updated: 04/10/2016 8:03 EDT ; Life Cycle Date: 08/13/2013 ; Life Cycle Status: Active ; Vocabulary: SNOMED CT UTI - Urinary tract infection (SNOMED CT :3579677197 ) Name of Problem: UTI - Urinary tract infection ; Recorder: KENYON CHAMBERS RN; Confirmation: Confirmed ; Classification: Medical ; Code: 8578128668 ; Contributor System: PowerChart ; Last Updated: 04/10/2016 8:04 EDT ; Life Cycle Date: 08/13/2013 ; Life Cycle Status: Active ; Vocabulary: SNOMED CT Diagnoses(Active) Chest pain Date: 06/12/2020 ; Diagnosis Type: Reason For Visit ; Confirmation: Complaint of ; Clinical Dx: Chest pain ; Classification: Medical ; Clinical Service: Emergency medicine ; Code: PNED ; Probability: 0 ; Diagnosis Code: [id number] ED Height and Weight Height Source : Stated Height Entry Format : [place] Height, Feet : 5 ft(Converted to: 152 cm, 60 Inch) Height, Inches : 3 Inch(Converted to: 0 ft 3 Inch, 7.62 cm) Clinical Height : 160.02 cm Weight Source, ED : Critical estimated dosing weight Weight Entry Format : [place] Weight, Pounds : 161 lb Clinical Dosing Weight : 73.18 kg Body Surface Area (BSA) : 1.77 m2 Body Mass Index : 28.6 kg/m2 (HI) [place] Body Weight (IBW) : 52.02 kg Roni Peralta RN - 06/12/2020 21:31 EDT Electronically signed by Abel Finnegan Conversion Unemployment Benefits Claims Taker Cerner at 02/04/2023 2:18 PM CDT documented in this encounter Plan of Treatment Not on file documented as of this encounter Visit Diagnoses Not on filedocumented in this encounter Care Teams Ad Taker Relationship Specialty Start Date End Date Jay Howell MD [address] [place] [phone] PCP - General Emergency Medicine 11/12/23 documented as of this encounter
--- OUTSIDE RECORDS SUMMARY | 2025-07-12 08:41 | XMS_ITS | Encounter Summary ---
Author Organization [employer] ([place], [place], [place], [place]) Address [address] [place] [address] Care Team Providers Care Teller Coordinator Name Role Phone Jay Howell MD Primary Care Provider [phone] Encounter Details Date Type Department Care Team (Late st Contact Info) Description 03/16/2021 Transcribed Document [facility] [place] [address] [place] [id number] ProviderJessie MD [address] [place] [id number] Social History Tobacco Use Types Packs/Day Years Used Date Smoking Tobacco: Never Assessed Comments Unknown Sex and Gender Information Value Date Recorded Sex Assigned at Not on file Legal Sex Female 7:30 PM CDT Gender Identity Not on file Sexual Orientation Not on file documented as of this encounter Miscellaneous Notes * Cerner Conversion Note - Historical ProviderMD - 03/16/2021 11:24 AM CDT ED Triage Entered On: 03/16/2021 11:35 EDT Performed On: 03/16/2021 11:32 EDT by NICOLE CHEN RN ED Triage Across the Room Chief Complaint : Pt states woke up felt funny went to bathroom and passed out, c/o right hip/ wrist pain, and neck pain. states she thinks she has a UTI as well Triage Date/Time : 03/16/2021 11:32 EDT NICOLE CHEN RN - 03/16/2021 11:32 EDT DCP GENERIC CODE Tracking Acuity : 2 - Emergent Tracking Group : [facility] ED NICOLE CHEN RN - 03/16/2021 11:32 EDT Mode of Arrival : Ambulatory Transported to ED by : Private vehicle To Room Via : Ambulate Accompanied By : Spouse ED Vital Signs : Document Height & Weight : Document ED Allergies : Document ED Reason for Visit : Document Tetanus Immunization : Less than 5 years NICOLE CHEN RN - 03/16/2021 11:32 EDT Infectious Disease History Has the patient [...] pox/Shingles, Measles, Mumps Tuberculosis Symptoms : None NICOLE CHEN RN - 03/16/2021 11:32 EDT Vital Signs ED Temperature Source : Oral Temperature Mode : Fahrenheit Temperature, Fahrenheit : 97.3 Deg F Clinical Temperature, C : 36.3 Deg C Oxygen Therapy Mode : Room air Peripheral Pulse Rate : 61 bpm Respiratory Rate : 16 Breaths/Min Systolic Blood Pressure : 176 mmHg (HI) Diastolic Blood Pressure : 68 mmHg Oxygen Saturation : 100 % NICOLE CHEN RN - 03/16/2021 11:32 EDT Allergy (As Of: 03/16/2021 11:35:39 EDT) Allergies (Active) Macrodantin Estimated Onset Date: Unspecified ; Created By: KENYON CHAMBERS RN; Reaction Status: Active ; Category: Drug ; Substance: Macrodantin ; Type: Allergy ; Updated By: KENYON CHAMBERS RN; Reviewed Date: 03/16/2021 11:33 EDT morphine Estimated Onset Date: Unspecified ; Reactions: rash, rash ; Created By: Contributor_system HIST_FELIX; Reaction Status: Active ; Category: Drug ; Substance: morphine ; Type: Allergy ; Updated By: Joaquin HIST_FELIX; Reviewed Date: 03/16/2021 11:33 EDT Diagnosis Control ED (As Of: 03/16/2021 11:35:39 EDT) Problems(Active) Apnea, sleep (SNOMED CT :798695895 ) Name of Problem: Apnea, sleep ; Recorder: JUAN LUIS GIL RN; Confirmation: Confirmed ; Classification: Medical ; Code: 067816066 ; Contributor System: PowerChart ; Last Updated: 11/12/2014 10:12 EST ; Life Cycle Date: 11/12/2014 ; Life Cycle Status: Active ; Vocabulary: SNOMED CT Arthritis (SNOMED CT :0596107 ) Name of Problem: Arthritis ; Recorder: KENYON CHAMBERS RN; Confirmation: Confirmed ; Classification: Medical ; Code: 9980153 ; Contributor System: PowerChart ; Last Updated: 04/10/2016 8:04 EDT ; Life Cycle Date: 08/13/2013 ; Life Cycle Status: Active ; Vocabulary: SNOMED CT Atrial fibrillation with RVR (SNOMED CT :9152881841 ) Name of Problem: Atrial fibrillation with RVR ; Recorder: SANG RICO APRN; Confirmation: Confirmed ; Classification: Medical ; Code: 0404223935 ; Contributor System: PowerChart ; Last Updated: 04/10/2016 8:05 EDT ; Life Cycle Date: 04/10/2016 ; Life Cycle Status: Active ; Responsible Provider: SANG RICO APRN; Vocabulary: SNOMED CT Blood clot (SNOMED CT :059434512 ) Name of Problem: Blood clot ; Recorder: KENYON CHAMBERS RN; Confirmation: Confirmed ; Classification: Patient Stated ; Code: 054961148 ; Contributor System: PowerChart ; Last Updated: [...] Vocabulary: Patient Care Chest pain (SNOMED CT :56848213 ) Name of Problem: Chest pain ; Recorder: SANG RICO APRN; Confirmation: Complaint of ; Classification: Medical ; Code: 99198969 ; Contributor System: PowerChart ; Last Updated: 04/10/2016 8:05 EDT ; Life Cycle Status: Active ; Responsible Provider: SANG RICO APRN; Vocabulary: SNOMED CT Chronic anticoagulation (SNOMED CT :382630879 ) Name of Problem: Chronic anticoagulation ; Recorder: SANG RICO APRN; Confirmation: Confirmed ; Classification: Medical ; Code: 383516154 ; Contributor System: [employer] ; Last Updated: 04/10/2016 8:05 EDT ; Life Cycle Date: 04/10/2016 ; Life Cycle Status: Active ; Responsible Provider: SANG RICO APRN; Vocabulary: SNOMED CT Clotting disorder (SNOMED CT :851360285 ) Name of Problem: Clotting disorder ; Recorder: KENYON CHAMBERS RN; Confirmation: Confirmed ; Classification: Patient Stated ; Code: 881121738 ; Contributor System: [employer]Chart ; Last Updated: 03/28/2014 19:29 EDT ; Life Cycle Date: 08/13/2013 ; Life Cycle Status: Active ; Vocabulary: SNOMED CT COPD (SNOMED CT :92442535 ) Name of Problem: COPD ; Recorder: KENYON CHAMBERS RN; Confirmation: Confirmed ; Classification: Medical ; Code: 44915759 ; Contributor System: [employer]Chart ; Last Updated: 04/10/2016 8:03 EDT ; Life Cycle Date: 08/13/2013 ; Life Cycle Status: Active ; Vocabulary: SNOMED CT Coronary artery disease (SNOMED CT :2490663643 ) Name of Problem: Coronary artery disease ; Recorder: KENYON CHAMBERS RN; Confirmation: Confirmed ; Classification: Medical ; Code: 8277559567 ; Contributor System: [employer]Chart ; Last Updated: 04/10/2016 8:03 EDT ; Life Cycle Date: 08/13/2013 ; Life Cycle Status: Active ; Vocabulary: SNOMED CT Diabetes mellitus (SNOMED CT :259837980 ) Name of Problem: Diabetes mellitus ; Recorder: KENYON CHAMBERS RN; Confirmation: Confirmed ; Classification: Medical ; Code: 793084268 ; Contributor System: [employer] ; Last Updated: 04/10/2016 8:04 EDT ; Life Cycle Date: 08/13/2013 ; Life Cycle Status: Active ; Vocabulary: SNOMED CT Emphysema (SNOMED CT :378990401 ) Name of Problem: Emphysema ; Recorder: JUAN LUIS GIL RN; Confirmation: Confirmed ; Classification: Medical ; Code: 948150356 ; Contributor System: PowerChart ; Last Updated: 11/12/2014 10:11 EST ; Life Cycle Date: 11/12/2014 ; Life Cycle Status: Active ; Vocabulary: SNOMED CT GERD - Gastro-esophageal reflux disease (SNOMED CT :5171879692 ) Name of Problem: GERD - Gastro-esophageal reflux disease ; Recorder: KENYON CHAMBERS RN; Confirmation: Confirmed ; Classification: Medical ; Code: 9238702134 ; Contributor System: PowerChart ; Last Updated: [...] Patient Care High blood pressure (SNOMED CT :38535413 ) Name of Problem: High blood pressure ; Recorder: KENYON CHAMBERS RN; Confirmation: Confirmed ; Classification: Medical ; Code: 18943541 ; Contributor System: PowerChart ; Last Updated: 04/10/2016 8:03 EDT ; Life Cycle Date: 08/13/2013 ; Life Cycle Status: Active ; Vocabulary: SNOMED CT History of obstructive sleep apnea (IMO :72383030 ) Name of Problem: History of obstructive sleep apnea ; Recorder: SYSTEM, SYSTEM; Confirmation: Confirmed ; Classification: Medical ; Code: 18873256 ; Last Updated: 08/25/2020 18:21 EST ; Life Cycle Date: 08/25/2020 ; Life Cycle Status: Active ; Vocabulary: IMO Hx of pulmonary embolus (SNOMED CT :017591205 ) Name of Problem: Hx of pulmonary embolus ; Recorder: SANG RICO APRN; Confirmation: Confirmed ; Classification: Medical ; Code: 170955310 ; Contributor System: PowerChart ; Last Updated: 04/10/2016 8:05 EDT ; Life Cycle Date: 04/10/2016 ; Life Cycle Status: Active ; Responsible Provider: SANG RICO APRN; Vocabulary: SNOMED CT Hyperlipidemia (SNOMED CT :98059780 ) Name of Problem: Hyperlipidemia ; Recorder: KENYON CHAMBERS RN; Confirmation: Confirmed ; Classification: Medical ; Code: 75004675 ; Contributor System: [employer]Chart ; Last Updated: 04/10/2016 8:03 EDT ; Life Cycle Date: 08/13/2013 ; Life Cycle Status: Active ; Vocabulary: SNOMED CT Multiple renal cysts (SNOMED CT :637445097 ) Name of Problem: Multiple renal cysts ; Recorder: KENYON CHAMBERS RN; Confirmation: Confirmed ; Classification: Medical ; Code: 172298427 ; Contributor System: [employer] ; Last Updated: 04/10/2016 8:04 EDT ; Life Cycle Date: 08/13/2013 ; Life Cycle Status: Active ; Vocabulary: SNOMED CT Stented coronary artery (SNOMED CT :4527018539 ) Name of Problem: Stented coronary artery ; Recorder: KENYON CHAMBERS RN; Confirmation: Confirmed ; Classification: Medical ; Code: 1235639623 ; Contributor System: [employer] ; Last Updated: 04/10/2016 8:03 EDT ; Life Cycle Date: 08/13/2013 ; Life Cycle Status: Active ; Vocabulary: SNOMED CT Diagnoses(Active) Syncope/Near syncope Date: 03/16/2021 ; Diagnosis Type: Reason For Visit ; Confirmation: Complaint of ; Clinical Dx: Syncope/Near syncope ; Classification: Medical ; Clinical Service: Emergency medicine ; Code: PNED ; Probability: 0 ; Diagnosis Code: [id number] ED Height and Weight Height Source : Stated Height Entry Format : [place] Height, Feet : 5 ft(Converted to: 152 cm, 60 Inch) Height, Inches : 3 Inch(Converted to: 0 ft 3 Inch, 7.62 cm) Clinical Height : 160.02 cm Weight Source, ED : Critical estimated dosing weight Weight Entry Format : [place] Weight, Pounds : 158 lb Clinical Dosing Weight : 71.82 kg Body Surface Area (BSA) : 1.75 m2 Body Mass Index : 28 kg/m2 (HI) [place] Body Weight (IBW) : 52.02 kg NICOLE CHEN RN - 03/16/2021 11:32 EDT documented in this encounter Plan of Treatment Not on file documented as of this encounter Visit Diagnoses Not on filedocumented in this encounter Care Teams Teller Coordinator Relationship Specialty Start Date End Date Jay Howell MD [address] [place] [phone] PCP - General Emergency Medicine 11/12/23 documented as of this encounter
--- OUTSIDE RECORDS SUMMARY | 2025-07-12 08:41 | XMS_ITS | Encounter Summary ---
Author Organization [employer] ([place], [place], [place], [place]) Address [address] [place] [address] Care Team Providers Care Needle Grader Name Role Phone Jay Howell MD Primary Care Provider [phone] Encounter Details Date Type Department Care Team (Late st Contact Info) Description 06/12/2020 Transcribed Document [facility] [place] Family Medicine [address] [place] [address] ProviderJessie MD [address] [place] [address] Social History Tobacco Use Types Packs/Day Years Used Date Smoking Tobacco: Never Assessed Comments Unknown Sex and Gender Information Value Date Recorded Sex Assigned at Not on file Legal Sex Female 7:30 PM CDT Gender Identity Not on file Sexual Orientation Not on file documented as of this encounter Miscellaneous Notes * Cerner Conversion Note - Jessie Yuen MD - 06/12/2020 9:23 PM CDT ED Assessment Entered On: 06/12/2020 22:56 EDT Performed On: 06/12/2020 22:00 EDT by NICOLE BYERS RN ED Quick Look Assessment Level of Consciousness : Alert, Awake Affect/Behavior : Anxious Orientation : Oriented x 4 Skin Temperature : Warm Skin Description : Normal for ethnicity NICOLE BYERS RN - 06/12/2020 22:47 EDT ED General-Functional Assess Information Obtained From : Patient Preferred Communication Mode : Verbal Communication Barrier : None Primary Language : Tanzanian Any Spiritual/Cultural Needs or Requests : No Currently in Unsafe Situation : No NICOLE BYERS RN - 06/12/2020 22:47 EDT Social Habits Smoking Status : Former smoker, quit more than 30 days ago Smokeless Tobacco Status : Never Desires Tobacco Cessation Calc : 0 NICOLE BYERS RN - 06/12/2020 22:47 EDT Social History (As Of: 06/12/2020 22:56:40 EDT) Tobacco: Smoking Status Former smoker. Comments: [...] ED Cardiovascular Assessment WDL : WDL with exceptions (Comment: h/o CABG, HTN. [NICOLE BYERS RN - 06/12/2020 22:47 EDT] ) Cardiovascular Symptoms : Dyspnea at rest, Nausea at rest, Pressure at rest Chest Pain : Yes EKG Completed by : NICOLE BYERS RN EKG Time Completed : 06/12/2020 21:50 EDT EKG Communicated to Provider : SURENDRA MELLO MD HAMMONDS, ASHLEY, RN - 06/12/2020 22:47 EDT Pulses Grid Radial Pulse, Left : 2+ normal Radial Pulse, Right : 2+ normal NICOLE BYERS RN - 06/12/2020 22:47 EDT Respiratory Breath Sounds Auscultated : Posterior, Anterior Respiratory Assessment WDL : WDL with exceptions (Comment: pt reports SOB associated c MSCP & pressure since 1900. pt states nothing makes it feel better or worse. [NICOLE BYERS RN - 06/12/2020 22:47 EDT] ) NICOLE BYERS RN - 06/12/2020 22:47 EDT Breath Sounds Assessment Grid All Lobes Breath Sounds : Clear NICOLE BYERS RN - 06/12/2020 22:47 EDT Neurologic ASMT, ED Neurologic Assessment WDL : WDL with exceptions Neurological Symptoms : Headache NICOLE BYERS RN - 06/12/2020 22:47 EDT Pain Assessment Pain Assessment : Initial assessment Pain Scale Used : 0-10 Scale Location : Chest, midsternal, Headache, frontal Onset : Constant Pain Location Comment : pt reports MSCP & pressure that radiates to her left side of her neck. pt states this started on the way to the ER. pt states she initially was coming to the ER for her high BP. pt reports HALL that has started since 1900 tonight. Quality : Pressure Pain Radiation : Yes Pain Radiation Location : Neck, left Pain Worsened by : Breathing, Movement Pain Intervention, Drug : Medicated (Comment: pt reports took (1) 81mg ASA @ 1930 tonight, along c her BP medicine. pt states she has not been able to get her BP under control for a few days now. [NICOLE BYERS RN - 06/12/2020 22:47 EDT] ) Pain Improved by Intervention : No NICOLE BYERS RN - 06/12/2020 22:47 EDT Pain Scale Intensity : 10 NICOLE BYRES RN - 06/12/2020 22:47 EDT Image 4 - Images currently included in the form version of this document have not been included in the text rendition version of the form. documented in this encounter Plan of Treatment Not on file documented as of this encounter Visit Diagnoses Not on filedocumented in this encounter Care Teams Needle Grader Relationship Specialty Start Date End Date Jay Howell MD [address] [place] [phone] PCP - General Emergency Medicine 11/12/23 documented as of this encounter
--- OUTSIDE RECORDS SUMMARY | 2025-07-12 08:41 | XMS_ITS | Encounter Summary ---
Author Organization [employer] ([place], [place], [place], [place]) Address [address] [place] [address] Care Team Providers Care Hydraulic Rubbish Compactor Mechanic Name Role Phone Jay Howell MD Primary Care Provider [phone] Encounter Details Date Type Department Care Team (Late st Contact Info) Description 06/12/2020 Transcribed Document [facility] [place] [address] [place] [address] ProviderJessie MD [address] [place] [address] Social History Tobacco Use Types Packs/Day Years Used Date Smoking Tobacco: Never Assessed Comments Unknown Sex and Gender Information Value Date Recorded Sex Assigned at Not on file Legal Sex Female 7:30 PM CDT Gender Identity Not on file Sexual Orientation Not on file documented as of this encounter Miscellaneous Notes * Cerner Conversion Note - Historical MD Alpa - 06/12/2020 9:45 PM CDT Patient: SKYLER MONTOYA Age: 79 years Sex: Female : 1940 Associated Diagnoses: Chest pain; Hypertensive urgency Author: SURENDRA MELLO MD Basic Information Additional information: Chief Complaint from Nursing Triage Note : Chief Complaint 06/12/2020 21:31 EDT Chief Complaint pt here c/o chest pain and high blood pressure thats been going on for several days . History of Present Illness The patient presents with chest pain. The onset was 3 days ago. The course/duration of symptoms is fluctuating in intensity. Location: substernal. Radiating pain: none. The character of symptoms is pressure. The degree at onset was minimal. The degree at maximum was moderate. The degree at present is minimal. The exacerbating factor is none. The relieving factor is none. Risk factors consist of coronary artery disease, hypertension and afib, CABG. Prior episodes: angina and feels similar to before she had her bypass surgery. Therapy today None. Associated symptoms: BP poorly controlled since Tuesday, denies shortness of breath, denies nausea, denies vomiting, denies diaphoresis, denies anxiety and denies palpitations. Review of Systems Constitutional symptoms: No fever, no chills, no sweats, no weakness, no fatigue. Skin symptoms: No rash, Eye symptoms: Vision unchanged, no pain, no discharge, no blurred vision. ENMT symptoms: No ear pain, no sore throat, no nasal congestion. Respiratory symptoms: No shortness of breath, no cough. Cardiovascular symptoms: Chest pain, no palpitations, no syncope. Gastrointestinal symptoms: No abdominal pain, no nausea, no vomiting, no diarrhea. Genitourinary symptoms: No dysuria, no hematuria. Musculoskeletal symptoms: No back pain, no Joint pain. Neurologic symptoms: No headache, no dizziness, no numbness, no weakness. Health Status Allergies: Allergic Reactions (Selected) Severity Not Documented Macrodantin- No reactions were documented. Morphine- Rash and rash. Nitrofurantoin- Blisters and blisters.. Medications: (Selected) Inpatient Medications Ordered aspirin: 324 mg, Chew, 1-Time labetalol: 20 mg, IV Push, 1-Time Prescriptions Prescribed Diovan 160 mg oral tablet: 1 Tab, Oral, Daily, 30 Tab, 1 Refill(s) Plavix 75 mg oral tablet: 1 Tab, Oral, Daily, 30 Tab, 1 Refill(s) Ranexa 500 mg oral tablet, extended release: 2 Tab, Oral, BID, 120 Tab, 1 Refill(s) amLODIPine 10 mg oral tablet: 1 Tab, Oral, Daily, 30 Tab, 1 Refill(s) hydrALAZINE 10 mg oral tablet: 1 Tab, Oral, BID, 60 Tab, 1 Refill(s) Documented Medications Documented Combigan 0.2%-0.5% ophthalmic solution: 1 Drop, Eye Right, BID, 0 Refill(s) Coumadin: 2 mg, Oral, Daily, 0 Refill(s) Durezol 0.05% ophthalmic emulsion: 1 Drop, Eye Right, QID, 0 Refill(s) Multiple Vitamins oral tablet: 1 Tab, Oral, Daily, 30 Tab Xanax 0.25 mg oral tablet: 1 Tab, Oral, At Bedtime, PRN: Insomnia, 0 Refill(s) acetaminophen-HYDROcodone 325 mg-5 mg oral tablet: 1 Tab, Oral, BID, PRN: for pain, 15 Tab, 0 Refill(s) aspirin 81 mg oral tablet: 1 Tab, Oral, Daily, 0 Refill(s) atorvastatin 80 mg oral tablet: 1 Tab, Oral, At Bedtime, 0 Refill(s) carvedilol: 3.125 mg, Oral, BID, 0 Refill(s) dorzolamide 2% ophthalmic solution: 1 Drop, Eyes Both, BID, 0 Refill(s) levETIRAcetam 250 mg oral tablet: 1 Tab, Oral, BID, 120 Tab, 0 Refill(s) metformin 500 mg oral tablet: 1 Tab, Oral, BID, 180 Tab, 0 Refill(s) nitroglycerin: 0.3 mg, SubLINgual, Q5Min, PRN: Chest Pain, 0 Refill(s) omeprazole 40 mg oral delayed release capsule: 1 Cap, Oral, Daily, 30 Cap, 0 Refill(s) warfarin 1 mg oral tablet: See Instructions, 1MG Tab Oral Daily MON, WED, FRI, 0 Refill(s). Past Medical/ Family/ Social History Surgical history: Cardiac Stent in 2010 at 70 Years. Coronary artery bypass graft (SNOMED CT 099283167) in 1992 at 52 Years. femur repair. Appendectomy (SNOMED CT 992838069). uterine suspension. Hysterectomy (SNOMED CT 065134007). back surgury. Cholecystectomy (SNOMED CT 49903482). Hip replacement (SNOMED CT 1729627933). cataract surgury., Reviewed as documented in chart. Family history: Cardiomyopathy Child Stroke Brother Heart attack Brother Sister Leukemia Child Cancer Father Mother Sister Coronary heart disease Child , Reviewed as documented in chart. Social history: Social & Psychosocial Habits Alcohol 08/13/2013 Alcohol Use in Last Twelve Months No Home/Environment 12/14/2014 Lives with: Spouse Living situation: Home/Independent Nutrition/Health 08/06/2014 Caffeine intake amount: 2 Substance Abuse 08/13/2013 Recreational Drug Use History No Tobacco 11/23/2016 Smoking Status Former smoker Comment: quite 1992 - 11/23/2016 13:03 - DAVIDA ISAAC RN , Reviewed as documented in chart. Problem list: Active Problems (21) Apnea, sleep Arthritis Atrial fibrillation with RVR Blood clot Cataract Chest pain Chronic anticoagulation Clotting disorder COPD Coronary artery disease Diabetes mellitus Emphysema GERD - Gastro-esophageal reflux disease Glaucoma High blood pressure History of obstructive sleep apnea Hx of pulmonary embolus Hyperlipidemia Multiple renal cysts Stented coronary artery UTI - Urinary tract infection , per nurse's notes. Physical Examination Vital Signs Vital Signs/Vital Measures 06/12/2020 21:31 EDT Systolic Blood Pressure 208 mmHg HI Diastolic Blood Pressure 89 mmHg Temperature Source Oral Temperature Mode Fahrenheit Temperature, Fahrenheit 97.8 Deg F Clinical Temperature, C 36.6 Deg C Peripheral Pulse Rate 70 bpm Respiratory Rate 16 Breaths/Min Oxygen Saturation 97 % Oxygen Therapy Mode Room air . Measurements 06/12/2020 21:31 EDT Height Source Stated Height Entry Format [place] Height/Length, YI (ft) 5 ft Height/Length YI 3 Inch CLINICALHEIGHT 160.02 cm [place] Body Weight 52.02 kg Weight Source, ED Critical estimated dosing weight Weight Entry Format [place] Weight Dominican lb 161 lb CLINICALWEIGHT 73.18 kg Body Surface Area (BSA) 1.77 m2 Body Mass Index 28.6 kg/m2 HI . Oxygen Saturation 06/12/2020 21:31 EDT Oxygen Saturation 97 % . General: Alert, no acute distress. Skin: Warm. Head: Normocephalic. Neck: Supple. Eye: Sclera: not icteric. Ears, nose, mouth and throat: Oral mucosa moist. Cardiovascular: Regular rate and rhythm, No murmur, Normal peripheral perfusion, No edema. Respiratory: Lungs are clear to auscultation, respirations are non-labored, breath sounds are equal. Chest wall: No tenderness. Back: Nontender. Gastrointestinal: Soft, Nontender, Non distended, Normal bowel sounds. Neurological: Alert and oriented to person, place, time, and situation, No focal neurological deficit observed. Lymphatics: No lymphadenopathy. Psychiatric: Cooperative. Medical Decision Making Documents reviewed: Emergency department nurses' notes. Electrocardiogram: Time 06/12/2020 21:50:00, rate 68, normal sinus rhythm, No ST changes, no ectopy, normal NH & QRS intervals, EP Interp. Electrocardiogram: Time 06/13/2020 00:55:00, rate 67, normal sinus rhythm, No ST changes, no ectopy, normal NH & QRS intervals, EP Interp. Results review: Lab results : Lab Results 06/12/2020 22:03 EDT Sodium Level 129 mmol/L LOW Potassium Level 5.2 mmol/L HI Chloride Level 101 mmol/L LOW Carbon Dioxide Level 19 mmol/L LOW Anion Gap 14 Glucose Level 110 mg/dL HI Blood Urea Nitrogen 9 mg/dL Creatinine Level 0.80 mg/dL eGFR >60 mL/min/1.73m2 eGFR NonAfrican >60 mL/min/1.73m2 Bun/Creatinine 11.2 Calcium Level 8.9 mg/dL Protein Total 8.3 Gram/dL HI Albumin Level 3.8 Gram/dL Globulin 4.5 Gram/dL A/G Ratio 0.8 LOW Bilirubin Total 0.7 mg/dL Alk Phos 65 Units/Liter AST 46 Units/Liter HI ALT 34 Units/Liter Lipase Level 130 Units/Liter Troponin I Ultra <0.015 ng/mL WBC 5.8 K/uL RBC 3.84 Million/uL LOW Hgb 12.2 g/dL Hct 36.3 % MCV 94.5 fL MCH 31.8 pg MCHC 33.6 Gram/dL Platelet Count 182 K/uL MPV 9.5 fL RDW 13.8 % Neut % 51.5 % Neut # 2.96 K/uL Lymph % 34.6 % Lymph # 1.99 x10(3)/uL [place] % 10.6 % HI [place] # 0.61 K/uL Eos % 2.1 % Eos # 0.12 x10(3)/uL Baso % 0.5 % Baso # 0.03 x10(3)/uL Slide Review No IG# 0.04 x10(3)/uL IG% 0.70 % HI PT 18.6 Second(s) HI INR 1.8 HI D Dimer Quant see comment mg/L FEU . Chest X-Ray: No acute disease process, interpretation by Emergency Physician. Impression and Plan Diagnosis Chest pain - Discharge, Medical Hypertensive urgency - Discharge, Medical Plan Condition: Improved, Guarded. Disposition: Admit Admit/Transfer/Discharge: Place in Observation (Order): Start: 06/12/2020 23:54 EDT, Observation Reason: Chest pain, hypertensive urgency, Unit type: Telemetry unit, Admitting: MARIA ELENA DAVALOS [facility] . Counseled: Patient, Family, Regarding diagnosis, Regarding diagnostic results, Regarding treatment plan, Patient indicated understanding of instructions. Notes: Patient presents with hypertensive urgency and chest pain. Initial EKG and troponin negative. Blood pressure decreased after IV hydralazine, labetalol, and transdermal Nitropaste. Discussed with Dr. Davalos, hospitalist, he accepts admission for further evaluation and care.. Electronically signed by Sivan [facility] Conversion Dam Worker Cerner at 02/04/2023 2:16 PM CDT documented in this encounter Plan of Treatment Not on file documented as of this encounter Visit Diagnoses Not on filedocumented in this encounter Care Teams Hydraulic Rubbish Compactor Mechanic Relationship Specialty Start Date End Date Jay Howell MD [address] [place] [phone] PCP - General Emergency Medicine 11/12/23 documented as of this encounter
--- OUTSIDE RECORDS SUMMARY | 2025-07-12 08:41 | XMS_ITS | Encounter Summary ---
Author Organization [employer] ([place], [place], [place], [place]) Address [address] [place] [address] Care Team Providers Care Senior Chemical Engineer Name Role Phone Jay Howell MD Primary Care Provider [phone] Encounter Details Date Type Department Care Team (Late st Contact Info) Description 06/13/[address] [facility] [place] Family Medicine [address] [place] [address] ProviderJessie MD [address] [place] [address] Social History Tobacco Use Types Packs/Day Years Used Date Smoking Tobacco: Never Assessed Comments Unknown Sex and Gender Information Value Date Recorded Sex Assigned at Not on file Legal Sex Female 7:30 PM CDT Gender Identity Not on file Sexual Orientation Not on file documented as of this encounter Miscellaneous Notes * Cerner Conversion Note - Historical ProviderMD - 06/13/2020 3:18 AM CDT Provider Notification Entered On: 06/13/2020 3:34 EDT Performed On: 06/13/2020 3:18 EDT by PAUL GERBER RN Provider Notification Provider Notified of : Patient Arrival PAUL GERBER RN - 06/13/2020 3:34 EDT documented in this encounter Plan of Treatment Not on file documented as of this encounter Visit Diagnoses Not on filedocumented in this encounter Care Teams Senior Chemical Engineer Relationship Specialty Start Date End Date Sokan, Jay O, MD [address] [place] [phone] PCP - General Emergency Medicine 11/12/23 documented as of this encounter
--- OUTSIDE RECORDS SUMMARY | 2025-07-12 08:41 | XMS_ITS | Encounter Summary ---
Author Organization [employer] ([place], [place], [place], [place]) Address [address] [place] [address] Care Team Providers Care Geophysical Observer Name Role Phone Jay Howell MD Primary Care Provider [phone] Encounter Details Date Type Department Care Team (Late st Contact Info) Description 06/13/2020 Transcribed Document [facility] [place] Family Medicine [address] [place] [address] ProviderJessie MD [address] [place] [address] Social History Tobacco Use Types Packs/Day Years Used Date Smoking Tobacco: Never Assessed Comments Unknown Sex and Gender Information Value Date Recorded Sex Assigned at Not on file Legal Sex Female 7:30 PM CDT Gender Identity Not on file Sexual Orientation Not on file documented as of this encounter Miscellaneous Notes * Cerner Conversion Note - Historical ProviderMD - 06/13/2020 5:00 PM CDT Chart Check - Review Order Profile Entered On: 06/13/2020 17:11 EDT Performed On: 06/13/2020 17:00 EDT by JOAO NASSAR RN Chart Check All Active Orders Reviewed : Yes JOAO NASSAR RN - 06/13/2020 17:11 EDT documented in this encounter Plan of Treatment Not on file documented as of this encounter Visit Diagnoses Not on filedocumented in this encounter Care Teams Geophysical Observer Relationship Specialty Start Date End Date Jay Howell MD [address] [place] [phone] PCP - General Emergency Medicine 11/12/23 documented as of this encounter
--- OUTSIDE RECORDS SUMMARY | 2025-07-12 08:41 | XMS_ITS | Encounter Summary ---
Author Organization [employer] ([place], [place], [place], [place]) Address [address] [place] [address] Care Team Providers Care Steam Bone Press Tender Name Role Phone Jay Howell MD Primary Care Provider [phone] Encounter Details Date Type Department Care Team (Late st Contact Info) Description 06/13/2020 Transcribed Document [facility] [place] Family Medicine [address] [place] [address] ProviderJessie MD [address] [place] [address] Social History Tobacco Use Types Packs/Day Years Used Date Smoking Tobacco: Never Assessed Comments Unknown Sex and Gender Information Value Date Recorded Sex Assigned at Not on file Legal Sex Female 7:30 PM CDT Gender Identity Not on file Sexual Orientation Not on file documented as of this encounter Miscellaneous Notes * Cerner Conversion Note - Jessie Yuen MD - 06/13/2020 2:48 AM CDT Education-Respiratory Therapy Entered On: 06/13/2020 3:35 EDT Performed On: 06/13/2020 2:48 EDT by PAUL GERBER RN Teaching/Learning Assessment Barriers To Learning : None evident Individuals Taught : Patient, Spouse Readiness to Learn : Cooperative Readiness to Learn : Explanation PAUL GERBER RN - 06/13/2020 3:34 EDT Education: Smoking/Tobacco Cessation Topics Smoking Cess Educatin Grid Advice Given to Stop Smoking : Verbalizes understanding Risks/Benefits of Smoking : Verbalizes understanding Second Hand Smoke : Verbalizes understanding Ed-Smoking Cessation Programs : Verbalizes understanding PAUL GERBER RN - 06/13/2020 3:34 EDT Tobacco Cessation Counseling Grid Recognizing Danger Situations : Verbalizes understanding Negative Moods and/or Stress : Verbalizes understanding Being Around Other Tobacco Users : Verbalizes understanding Drinking Alcohol : Verbalizes understanding Experiencing Urges : Verbalizes understanding Tobacco Cues and Availability : Verbalizes understanding Developing Coping Skills : Verbalizes understanding Anticipate/Avoid Temptation/Triggers : Verbalizes understanding Strategies to Reduce Negative Moods : Verbalizes understanding Reduce Stress/Exposure to Tobacco Cues : Verbalizes understanding Activities to [place] With Smoking Urges : Verbalizes understanding Basic Information About Quitting : Verbalizes understanding Tobacco Use Increases Chance of Relapse : Verbalizes understanding Withdrawal Symptoms Peak After Quitting : Verbalizes understanding Addictive Nature of Tobacco : Verbalizes understanding PAUL GERBER RN - 06/13/2020 3:34 EDT documented in this encounter Plan of Treatment Not on file documented as of this encounter Visit Diagnoses Not on filedocumented in this encounter Care Teams Steam Bone Press Tender Relationship Specialty Start Date End Date Jay Howell MD [address] [place] [phone] PCP - General Emergency Medicine 11/12/23 documented as of this encounter
--- OUTSIDE RECORDS SUMMARY | 2025-07-12 08:41 | XMS_ITS | Encounter Summary ---
Author Organization [employer] ([place], [place], [place], [place]) Address [address] [place] [address] Care Team Providers Care Piece Marker Small Arms Name Role Phone Jay Howell MD Primary Care Provider [phone] Encounter Details Date Type Department Care Team (Late st Contact Info) Description 03/16/2021 Transcribed Document [facility] [place] Family Medicine [address] [place] [address] ProviderJessie MD [address] [place], [place] [address] Social History Tobacco Use Types Packs/Day Years Used Date Smoking Tobacco: Never Assessed Comments Unknown Sex and Gender Information Value Date Recorded Sex Assigned at Not on file Legal Sex Female 7:30 PM CDT Gender Identity Not on file Sexual Orientation Not on file documented as of this encounter Miscellaneous Notes * Cerner Conversion Note - Jessie ProviderMD - 03/16/2021 11:24 AM CDT [place] Suicide Severity Rating Scale (C-SSRS) Entered On: 03/16/2021 12:59 EDT Performed On: 03/16/2021 12:57 EDT by Viri Gonsales RN [place] Suicide Severity Rating Scale (C-SSRS) CSSRS Past Month Wish to be : No CSSRS Past Month Suicidal Thoughts : No CSSRS Lifetime Suicide Behavior : No Suicide Severity Rating Score : 0 Suicide Severity Rating : No Additional Care Required at this time Viri Gonsales RN - 03/16/2021 12:57 EDT documented in this encounter Plan of Treatment Not on file documented as of this encounter Visit Diagnoses Not on filedocumented in this encounter Care Teams Piece Marker Small Arms Relationship Specialty Start Date End Date Jay Howell MD [address] [place] [phone] PCP - General Emergency Medicine 11/12/23 documented as of this encounter
--- OUTSIDE RECORDS SUMMARY | 2025-07-12 08:41 | XMS_ITS | Encounter Summary ---
Author Organization [employer] ([place], [place], [place], [place]) Address [address] [place] [address] Care Team Providers Care Drying Machine Operator Package Yarns Name Role Phone aJy Howell MD Primary Care Provider [phone] Encounter Details Date Type Department Care Team (Late st Contact Info) Description 06/13/2020 Transcribed Document [facility] Family Medicine [address] [place] [address] ProviderJessie MD [address] [place] [address] Social History Tobacco Use Types Packs/Day Years Used Date Smoking Tobacco: Never Assessed Comments Unknown Sex and Gender Information Value Date Recorded Sex Assigned at Not on file Legal Sex Female 7:30 PM CDT Gender Identity Not on file Sexual Orientation Not on file documented as of this encounter Miscellaneous Notes * Cerner Conversion Note - Historical ProviderMD - 06/13/2020 9:18 AM CDT Patient: SKYLER MONTOYA Age: 79 years Sex: Female : 1940 Associated Diagnoses: None Author: FARHANA BUTTERFIELD DO Basic Information pt seen and examined 06/13 am was up going to the bathroom with this am in her room when she became very lightheaded, dizzy, vertiginous, and had a brief syncopal episode, hitting the back of her head lightly denies headache or neurologic change, awoke immediately, no confusion bp following return to bed with sys 80s pt subsequently 120 systolic consistently received clonidine overnight has had recent increased difficulty controlling bps over the last week or so, with sbps >200 had cp as part of her presenting symptoms, but this has resolved and not recurred when cp was present was accompanied by significant sob and a very heavy weight sensation sitting on her chest she hasn't experienced anything like that in the past with her cardiac disease, but doesn't think she has ever had a heart attack Health Status Allergies: Allergic Reactions (Selected) Severity Not Documented Macrodantin- No reactions were documented. Morphine- Rash and rash. Nitrofurantoin- Blisters and blisters., Allergies (1) Active Reaction Macrodantin None Documented Current medications: (Selected) Inpatient Medications Ordered Ativan: 0.5 mg, IV Push, Q4H, PRN: Agitation Combigan ophthalmic solution: 1 Drop, Eyes Both, BID Coumadin: 2 mg, Oral, TuThFrSaSu Coumadin: 3 mg, Oral, MoWe DuoNeb 0.5 mg-2.5 mg/3 mL inhalation solution: 3 mL, Nebulized Inhalation, Q6H, PRN: Shortness of Breath Pepcid: 20 mg, Oral, Daily Phenergan: 6.25 mg, IntraVENous, Q6H, PRN: Nausea Pred Forte 1% ophthalmic suspension: 1 Drop, Eyes Both, 8 Times a Day Prevnar 13: 0.5 mL, IntraMuscular, 1-Time Ranexa: 1,000 mg, Oral, BID Tylenol: 650 mg, Oral, Q4H, PRN: Other (See Comment) Xanax: 0.25 mg, Oral, At Bedtime, PRN: Insomnia Zofran: 4 mg, IV Push, Q4H, PRN: Nausea amLODIPine: 10 mg, Oral, Daily aspirin: 81 mg, Oral, Daily atorvastatin: 80 mg, Oral, At Bedtime carvedilol: 6.25 mg, Oral, TID dorzolamide 2% ophthalmic solution: 1 Drop, Eyes Both, BID hydrALAZINE: 10 mg, IV Push, Q6H, PRN: Hypertension hydrALAZINE: 10 mg, Oral, BID valsartan: 160 mg, Oral, Daily Documented Medications Documented Combigan 0.2%-0.5% ophthalmic solution: 1 Drop, Eye Right, BID, 0 Refill(s) Coumadin 2 mg oral tablet: 1 Tab, Oral, TuThFrSaSu Coumadin 2 mg oral tablet: 1.5 Tab, Oral, MoWe Durezol 0.05% ophthalmic emulsion: 1 Drop, Eye Right, QID, 0 Refill(s) Multiple Vitamins oral tablet: 1 Tab, Oral, Daily, 30 Tab Ranexa 500 mg oral tablet, extended release: 2 Tab, Oral, BID, 0 Refill(s) Xanax 0.25 mg oral tablet: 1 Tab, Oral, At Bedtime, PRN: Insomnia, 0 Refill(s) acetaminophen-HYDROcodone 325 mg-5 mg oral tablet: 1 Tab, Oral, BID, PRN: for pain, 15 Tab, 0 Refill(s) amLODIPine: 10 mg, Oral, Daily, 0 Refill(s) aspirin 81 mg oral tablet: 1 Tab, Oral, Daily, 0 Refill(s) atorvastatin 80 mg oral tablet: 1 Tab, Oral, At Bedtime, 0 Refill(s) carvedilol 6.25 mg oral tablet: 1 Tab, Oral, TID, 180 Tab, 0 Refill(s) dorzolamide 2% ophthalmic solution: 1 Drop, Eyes Both, BID, 0 Refill(s) hydrALAZINE 10 mg oral tablet: 1 Tab, Oral, BID, 60 Tab, 0 Refill(s) metformin 500 mg oral tablet: 1 Tab, Oral, BID, 180 Tab, 0 Refill(s) nitroglycerin: 0.3 mg, SubLINgual, Q5Min, PRN: Chest Pain, 0 Refill(s) omeprazole 40 mg oral delayed release capsule: 1 Cap, Oral, Daily, 30 Cap, 0 Refill(s) valsartan: 160 mg, Oral, Daily, 0 Refill(s) Problem list: Medical Arthritis / SNOMED CT 6465529 / Confirmed Atrial fibrillation with RVR / SNOMED CT 7733252298 / Confirmed Cataract / Patient Care / Confirmed Chest pain / SNOMED CT 39133986 / Complaint of COPD / SNOMED CT 41883192 / Confirmed Coronary artery disease / SNOMED CT 3117233598 / Confirmed Diabetes mellitus / SNOMED CT 042815618 / Confirmed GERD - Gastro-esophageal reflux disease / SNOMED CT 4699323185 / Confirmed Glaucoma / Patient Care / Confirmed Chronic anticoagulation / SNOMED CT 893843873 / Confirmed Hx of pulmonary embolus / SNOMED CT 382002296 / Confirmed High blood pressure / SNOMED CT 34080465 / Confirmed History of obstructive sleep apnea / IMO 82996674 / Confirmed Hyperlipidemia / SNOMED CT 91843326 / Confirmed Multiple renal cysts / SNOMED CT 204069553 / Confirmed Emphysema / SNOMED CT 595582929 / Confirmed Apnea, sleep / SNOMED CT 940822981 / Confirmed Stented coronary artery / SNOMED CT 9882423424 / Confirmed UTI - Urinary tract infection / SNOMED CT 3707284334 / Confirmed, Active Problems (21) Apnea, sleep Arthritis Atrial fibrillation with RVR Blood clot Cataract Chest pain Chronic anticoagulation Clotting disorder COPD Coronary artery disease Diabetes mellitus Emphysema GERD - Gastro-esophageal reflux disease Glaucoma High blood pressure History of obstructive sleep apnea Hx of pulmonary embolus Hyperlipidemia Multiple renal cysts Stented coronary artery UTI - Urinary tract infection Physical Examination VS/Measurements Vitals Signs (last 24 hrs) Last Charted Minimum Maximum Temp 98.2 (JUN 13 06:10) 97.8 (JUN 12 21:31) 98.2 (JUN 13 03:06) Apical HR 67 (JUN 13 02:13) 65 (JUN 12 22:03) 72 (JUN 12 23:54) Mon HR 62 (JUN 13 09:15) 60 (JUN 13 00:08) 88 (JUN 13 02:48) Periph HR 70 (JUN 12 21:31) 70 (JUN 12 21:31) 70 (JUN 12 21:31) Resp Rate 16 (JUN 13 06:10) 15 (JUN 13 00:30) H 21 (JUN 12 22:03) SBP 120 (JUN 13 08:20) L 81 (JUN 13 07:57) H 213 (JUN 12 23:54) DBP L 48 (JUN 13 08:20) L 38 (JUN 13 07:57) H 98 (JUN 13 00:08) MAP 62 (JUN 13 08:20) 52 (JUN 13 08:06) 129 (JUN 12 21:56) SpO2 99 (JUN 13 09:15) 94 (JUN 13 07:57) 99 (JUN 13 08:10) General: Alert and oriented, No acute distress. Eye: Pupils are equal, round and reactive to light, Extraocular movements are intact. HENT: Normocephalic, Oral mucosa is moist. Respiratory: Lungs are clear to auscultation, Respirations are non-labored, Breath sounds are equal, Symmetrical chest wall expansion. Cardiovascular: Normal rate, Regular rhythm, No murmur. Gastrointestinal: Soft, Non-tender, Non-distended, Normal bowel sounds. Musculoskeletal: No swelling, No deformity. Integumentary: Warm, Dry, mild petechiael nonblanching nonpruritic rash to right hand pt states d/t bp cuff. Neurologic: Alert, Oriented, No focal deficits, Cranial Nerves II-XII are grossly intact. Psychiatric: Cooperative, Appropriate mood & affect. Review / Management Results review: Labs (Last four charted values) WBC 6.4 (JUN 13) 5.8 (JUN 12) HB 11.8 (JUN 13) 12.2 (JUN 12) HCT 35.4 (JUN 13) 36.3 (JUN 12) Plt 172 (JUN 13) 182 (JUN 12) Na L 133 (JUN 13) L 129 (JUN 12) K 3.6 (JUN 13) H 5.2 (JUN 12) Cl 103 (JUN 13) L 101 (JUN 12) CO2 22 (JUN 13) L 19 (JUN 12) BUN 9 (JUN 13) 9 (JUN 12) Cr 0.70 (JUN 13) 0.80 (JUN 12) Glu R H 122 (JUN 13) H 110 (JUN 12) Ca 9.1 (JUN 13) 8.9 (JUN 12) PT H 18.6 (JUN 12) INR H 1.8 (JUN 12) AST H 46 (JUN 12) ALT 34 (JUN 12) ALK P 65 (JUN 12) T Bili 0.7 (JUN 12) PTN H 8.3 (JUN 12) ALB 3.8 (JUN 12) Lipase 130 (JUN 12) Troponin <0.015 (JUN 13) <0.015 (JUN 13) <0.015 (JUN 12) . Impression and Plan htn urgency recently poorly controlled will order renal artery duplex dc clonidine, this is sometimes poorly tolerated in this age group goal sbps would be around 160 given the degree of htn she presented with , with slow correction to ideal bps cp poss angina significant heart history, cardiology evaluating hyponatremia improved; will give 500 ns for volume support atrial fib and hx vte on chronic anticoagulation in setting of syncopal event this am likely r/t above; no neuro deficits but as pt is anticoagulated will repeat head ct dm 2, on metformin alone hold oral agent, unlikely to need ssi, will follow glu and initiate if necessary hld dw rn dw pt and time 36mins Electronically signed by Interface, [facility] Conversion Melt House Supervisor Cerner at 02/04/2023 2:21 PM CDT documented in this encounter Plan of Treatment Not on file documented as of this encounter Visit Diagnoses Not on filedocumented in this encounter Care Teams Drying Machine Operator Package Yarns Relationship Specialty Start Date End Date Jay Howell MD [address] [place] [phone] PCP - General Emergency Medicine 11/12/23 documented as of this encounter
--- OUTSIDE RECORDS SUMMARY | 2025-07-12 08:41 | XMS_ITS | Encounter Summary ---
Author Organization [employer] ([place], [place], [place], [place]) Address [address] [place] [address] Care Team Providers Care Audiologist Name Role Phone Jay Howell MD Primary Care Provider [phone] Encounter Details Date Type Department Care Team (Late st Contact Info) Description 03/16/2021 Transcribed Document [facility] Family Medicine [address] [place] [address] ProviderJessie MD [address] [place], [place] [address] Social History Tobacco Use Types Packs/Day Years Used Date Smoking Tobacco: Never Assessed Comments Unknown Sex and Gender Information Value Date Recorded Sex Assigned at Not on file Legal Sex Female 7:30 PM CDT Gender Identity Not on file Sexual Orientation Not on file documented as of this encounter Miscellaneous Notes * Cerner Conversion Note - Historical ProviderMD - 03/16/2021 2:05 PM CDT CR Chest 1 Vw Portable Ordered: 03/16/2021 Modified Reason for Exam: pain 03/16/2021 13:36 CR Hip Uni Comp Min 2 Vws RT Ordered: 03/16/2021 Auth (Verified) Reason for Exam: injury 03/16/2021 13:36 CR Wrist Min 3 Vws RT Ordered: 03/16/2021 Auth (Verified) Reason for Exam: injury 03/16/2021 13:35 CR Knee Min 4 Vws LT Ordered: 03/16/2021 Auth (Verified) Reason for Exam: injury 03/16/2021 13:35 03/16/2021 14:05 (OLAYINKA ISSA PA-C) Reviewed by Provider, No further action required X1 Electronically signed by Gayle Finnegan Conversion Social Welfare Research Worker Cerner at 02/04/2023 2:00 PM CDT documented in this encounter Plan of Treatment Not on file documented as of this encounter Visit Diagnoses Not on filedocumented in this encounter Care Teams Audiologist Relationship Specialty Start Date End Date Jay Howell MD [address] [place] [phone] PCP - General Emergency Medicine 11/12/23 documented as of this encounter
--- OUTSIDE RECORDS SUMMARY | 2025-07-12 08:41 | XMS_ITS | Encounter Summary ---
Author Organization [employer] ([place], [place], [place], [place]) Address [address] [place] [address] Care Team Providers Care Food And Beverage Operations Manager Name Role Phone Jay Howell MD Primary Care Provider [phone] Encounter Details Date Type Department Care Team (Late st Contact Info) Description 06/13/2020 Transcribed Document [facility] Family Medicine [address] [place] [address] ProviderJessie MD [address] [place] [address] Social History Tobacco Use Types Packs/Day Years Used Date Smoking Tobacco: Never Assessed Comments Unknown Sex and Gender Information Value Date Recorded Sex Assigned at Not on file Legal Sex Female 7:30 PM CDT Gender Identity Not on file Sexual Orientation Not on file documented as of this encounter Miscellaneous Notes * Cerner Conversion Note - Jessie Yuen MD - 06/13/2020 8:48 AM CDT Patient: SKYLER MONTOYA Age: 79 years Sex: Female : 1940 Associated Diagnoses: None Author: FREDY YAÑEZ MD-CAR Basic Information PCP: Avtar Moeller MD Belt Puncher: Stephania Garcia MD Chief Complaint Chest pain History of Present Illness 79 year old female with history of CAD s/p CABG (1992) and subsequent stents in 2007 [id number], Paroxysmal atrial fibrillation and prior PE on chronic Warfarin, HTN, HLD, Carotid stenosis, Seizure disorder, DANTE, COPD and DMII presents to the ER with complaints of chest pain and shortness of breath. Labs: Troponin is negative x3, Na+ 129. K+ 5.2, INR subtherapeutic at 1.8 Review of Systems Constitutional: Negative except as [...] as documented in history of present illness. Health Status Allergies (1) Active Reaction Macrodantin None Documented Home Medications (18) Active acetaminophen-HYDROcodone 325 mg-5 mg oral tablet 1 Tab, PRN, Oral, BID amLODIPine 10 mg, Oral, Daily aspirin 81 mg oral tablet 81 mg = 1 Tab, Oral, Daily atorvastatin 80 mg oral tablet 80 mg = 1 Tab, Oral, At Bedtime carvedilol 6.25 mg oral tablet 6.25 mg = 1 Tab, Oral, TID Combigan 0.2%-0.5% ophthalmic solution 1 Drop, Eye Right, BID Coumadin 2 mg oral tablet 3 mg = 1.5 Tab, Oral, MoWe Coumadin 2 mg oral tablet 2 mg = 1 Tab, Oral, TuThFrSaSu dorzolamide 2% ophthalmic solution 1 Drop, Eyes Both, BID Durezol 0.05% ophthalmic emulsion 1 Drop, Eye Right, QID hydrALAZINE 10 mg oral tablet 10 mg = 1 Tab, Oral, BID metformin 500 mg oral tablet 500 mg = 1 Tab, Oral, BID Multiple Vitamins oral tablet 1 Tab, Oral, Daily nitroglycerin 0.3 mg, PRN, SubLINgual, Q5Min omeprazole 40 mg oral delayed release capsule 40 mg = 1 Cap, Oral, Daily Ranexa 500 mg oral tablet, extended release 1,000 mg = 2 Tab, Oral, BID valsartan 160 mg, Oral, Daily Xanax 0.25 mg oral tablet 0.25 mg = 1 Tab, PRN, Oral, At Bedtime Current medications: Medications (21) Active Scheduled: (14) amLODIPine 10 mg tab 10 mg 1 Tab, Oral, Daily aspirin 81 mg chew tab 81 mg 1 Tab, Oral, Daily atorvastatin 40 mg tab 80 mg 2 Tab, Oral, At Bedtime carvedilol 6.25 mg tab 6.25 mg 1 Tab, Oral, TID dorzolamide 2% ophth soln 10 mL 1 Drop, Eyes Both, BID famotidine 20 mg tab 20 mg 1 Tab, Oral, Daily hydrALAZINE 10 mg tab 10 mg 1 Tab, Oral, BID pneumococcal 13-elin vacc 0.5 mL inj 0.5 mL, IntraMuscular, 1-Time prednisoLONE 1% ophth susp 5 mL 1 Drop, Eyes Both, 8 Times a Day ranolazine ER 500 mg tab 1,000 mg 2 Tab, Oral, BID timolol-brimonidine ophth drops 1 Drop, Eyes Both, BID valsartan 160 mg tab 160 mg 1 Tab, Oral, Daily warfarin 2 mg tab 2 mg 1 Tab, Oral, [facility] 3 mg tab 3 mg 1 Tab, Oral, MoWe Continuous: (0) PRN: (7) acetaminophen 325 mg tab 650 mg 2 Tab, Oral, Q4H albuterol-ipratropium inh 3 mL 3 mL, Nebulized Inhalation, Q6H ALPRAZolam 0.25 mg tab 0.25 mg 1 Tab, Oral, At Bedtime hydrALAZINE 20 mg/1 mL inj 10 mg 0.5 mL, IV Push, Q6H LORazepam 2 mg/mL inj 0.5 mg 0.25 mL, IV Push, Q4H ondansetron 4 mg/2 mL inj 4 mg 2 mL, IV Push, Q4H promethazine 25 mg/1 mL inj 6.25 mg 0.25 mL, IntraVENous, Q6H Problem list: Active Problems (21) Apnea, sleep Arthritis Atrial fibrillation with RVR Blood clot Cataract Chest pain Chronic anticoagulation Clotting disorder COPD Coronary artery disease Diabetes mellitus Emphysema GERD - Gastro-esophageal reflux disease Glaucoma High blood pressure History of obstructive sleep apnea Hx of pulmonary embolus Hyperlipidemia Multiple renal cysts Stented coronary artery UTI - Urinary tract infection Histories No education data available. Social & [...] History: Active Cataract Glaucoma Coronary artery disease (5358134413) Stented coronary artery (6758279042) High blood pressure (02692639) Hyperlipidemia (74549929) COPD (61421569) GERD - Gastro-esophageal reflux disease (2927159368) Multiple renal cysts (767193301) UTI - Urinary tract infection (8820487450) Arthritis (1370689) Diabetes mellitus (394070390) Emphysema (513012372) Apnea, sleep (753356517) Hx of pulmonary embolus (551397629) Chronic anticoagulation (323430124) Atrial fibrillation with RVR (8249505566) Family History: Cardiomyopathy Child Stroke Brother Heart attack Brother Sister Leukemia Child Cancer Father Mother Sister Coronary heart disease Child Procedure history: Cardiac Stent in 2010 at 70 Years. Coronary artery bypass graft (832055452) in 1992 at 52 Years. femur repair. Appendectomy (560799818). uterine suspension. Hysterectomy (648672771). back surgury. Cholecystectomy (35986179). Hip replacement (9039794054). cataract surgury. Physical Examination VS/Measurements Vitals Signs (last 24 hrs) Last Charted Minimum Maximum Temp 98.2 (JUN 13 06:10) 97.8 (JUN 12 21:31) 98.2 (JUN 13 03:06) Apical HR 67 (JUN 13 02:13) 65 (JUN 12 22:03) 72 (JUN 12 23:54) Mon HR 65 (JUN 13 08:20) 60 (JUN 13 00:08) 88 (JUN 13 [...] 13 08:06) 129 (JUN 12 21:56) SpO2 98 (JUN 13 08:20) 94 (JUN 13 07:57) 99 (JUN 13 08:10) General: Alert and oriented, No acute distress. Eye: Pupils are equal, round and reactive to light. HENT: Normocephalic. Neck: Supple, Non-tender, No carotid bruit, No jugular venous distention. Respiratory: Lungs are clear to auscultation, Respirations are non-labored, Breath sounds are equal, Symmetrical chest wall expansion. Cardiovascular: Normal rate, Regular rhythm, No murmur, No gallop, Good pulses equal in all extremities. Gastrointestinal: Soft, Non-tender, Non-distended, Normal bowel sounds. Musculoskeletal: Normal range of motion, Normal strength. Integumentary: Warm, Dry, [place]. Neurologic: Alert, Oriented. Psychiatric: Cooperative, Appropriate mood & affect. Review / Management JUN 13 04:40 L 133 103 9 / H 122 3.6 22 0.70 \ JUN 13 04:40 \ 11.8 / 6.4 172 / 35.4 \ Cardiac Markers (Current Encounter/Past 24 Hours) No Cardiac Marker Results Found (Past 24 Hours) Blood Gases (Current Encounter/Past 24 Hours) No Blood Gas Results Found (Past 24 Hours) Radiology Results (Last 48 hours) [id number] -- 06/12/2020 23:54 CR Chest 1 Vw Portable (06/12/2020 21:58) Result: PORTABLE CHEST HISTORY: Upper bilateral chest pain, hypertension.COMPARISON: December 12, 2018FINDINGS: The patient is status post median sternotomy for prior CABG.The heart is borderline in size. There is ectasia of the aorta withcalcified plaque identified. The lungs are well expanded with probableunderlying emphysema. There is no pneumothorax. IMPRESSION: No acute cardiopulmonary process.Images reviewed, interpreted, and dictated by Dr. Patrice Eaton.Transcribed by Pricila Hernández PA-C. Results review: Labs (Last four charted values) [...] <0.015 (JUN 13) <0.015 (JUN 12) . [facility] IMPRESSION: Angiographically, the patient has severe three-vessel coronary artery disease with continued patency of saphenous venous graft to the lateral branch of circumflex artery and saphenous venous graft to the posterior descending artery of the right coronary artery. There is atretic nonfunctional left internal mammary artery bypass graft to the left anterior descending. Given her severely lifestyle limiting exertional angina symptoms as well as large area anterior ischemia by Lexiscan Cardiolite perfusion study, percutaneous intervention to the left anterior descending artery was performed. PERCUTANEOUS INTERVENTION: The left coronary artery was engaged using CLS 3.5 guide catheter. The LAD lesion was crossed using a Whisper wire. Angioplasty was initially performed using a 2.5 x 12 AngioSculpt balloon with inflation to 20 atmospheres. A 4.0 x 16 Synergy stent was then successfully deployed with inflation to 18 atmospheres. A 4.0 x 12 Emerge balloon was used for further post dilatation in the area of the stent and inflated to 22 atmospheres. There is mild residual waist within the midportion of the newly placed proximal LAD stent. There is brisk flow across the vessel. No complication. Echo 03/2017 Impression: Normal sized left ventricle. Normal left ventricular wall thickness. Visually estimated ejection fraction 50% +/- 5%. Low normal left ventricular systolic function. Indeterminate diastolic function. No significant valvular heart disease. No left ventricular masses or thrombi Impression and Plan IMPRESSION: Intermittent Chest pain, dyspnea and uncontrolled HTN in setting of episodic tachy-palpitations. SBP 208 on arrival. Dizziness / pre-syncope w/ fall after multiple IV/po BP meds since yesterday. Troponin neg x3; no acute ischemic changes by EKG HARVINDER to LAD -2018. Echo last month at Dr. Garcia' office. Results unknown. EF 55% in 2016 CAD s/p CABG (1992) subsequent stents in 2007, 2010, and 2018 Paroxysmal atrial fibrillation and prior PE chronic Warfarin subtherapeutic INR 1.8 HTN improved SBP 140's. HLD Carotid stenosis Seizure disorder DANTE COPD DMII PLAN; Obtain copy of recent echo/nuclear stress test from Dr. Garcia office. Resume BP meds gradually. IVF. Continue other CV meds. Event recorder after DC w/ Dr. Garcia. documented in this encounter Plan of Treatment Not on file documented as of this encounter Visit Diagnoses Not on filedocumented in this encounter Care Teams Food And Beverage Operations Manager Relationship Specialty Start Date End Date Jay Howell MD [address] [place] [phone] PCP - General Emergency Medicine 11/12/23 documented as of this encounter
--- OUTSIDE RECORDS SUMMARY | 2025-07-12 08:41 | XMS_ITS | Encounter Summary ---
Author Organization [employer] ([place], [place], [place]) Address [address] [place] [address] Care Team Providers Care Assistant Head Cashier Name Role Phone Jay Howell MD Primary Care Provider [phone] Encounter Details Date Type Department Care Team (Late st Contact Info) Description 03/16/2021 Transcribed Document [facility] [place] [address] [place] [id number] ProviderJessie MD [address] [place] [id number] Social History Tobacco Use Types Packs/Day Years Used Date Smoking Tobacco: Never Assessed Comments Unknown Sex and Gender Information Value Date Recorded Sex Assigned at Not on file Legal Sex Female 7:30 PM CDT Gender Identity Not on file Sexual Orientation Not on file documented as of this encounter Miscellaneous Notes * Cerner Conversion Note - Historical ProviderMD - 03/16/2021 12:04 PM CDT Patient: SKYLER MONTOYA Age: 80 years Sex: Female : 1940 Associated Diagnoses: Syncope; Right wrist fracture; Back strain Author: OLAYINKA ISSA PA-C Basic Information Time seen: Date & time 03/16/2021 11:33:00. History source: Patient. Arrival mode: Private vehicle. History limitation: None. Additional information: Chief Complaint from Nursing Triage Note : Chief Complaint 03/16/2021 11:32 EDT Chief Complaint Pt states woke up felt funny went to bathroom and passed out, c/o right hip/ wrist pain, and neck pain. states she thinks she has a UTI as well . History of Present Illness The patient presents with syncope and dizziness. The onset was just prior to arrival. The course/duration of symptoms is constant. The location where the incident occurred was at home. The exacerbating factor is Patient woke up feeling nauseated. She walked to bathroom and passed out landing in floor. heard her fall and went to her. He reports eye were closed laying in floor and would not respond. He did not think she was breathing. He reports this lasted for less than 10 minutes. brought her to ER. She has had some burning with urination couple days. She had pain from fall in head, neck, lower back, right wrist and left knee. She had lower abdomen discomfort before the fall.. Risk factors consist of coronary artery disease, hypertension and age. Prior episodes: none. Therapy today: none. Preceding symptoms: lightheaded nausea. Associated symptoms: abdominal pain, nausea, vomiting, headache, dizziness, denies chest pain, denies fever, denies chills and denies shortness of breath. Associated injury to the none. Review of Systems Constitutional symptoms: Weakness, fatigue. Skin symptoms: Negative except as documented in HPI. Eye symptoms: Negative except as documented in HPI. ENMT symptoms: Negative except as documented in HPI. Respiratory symptoms: Negative except as documented in HPI. Cardiovascular symptoms: Syncope. Gastrointestinal symptoms: Abdominal pain, nausea, vomiting. Genitourinary symptoms: Dysuria. Musculoskeletal symptoms: Back pain. Neurologic symptoms: Headache, dizziness. Psychiatric symptoms: Negative except as documented in HPI. Endocrine symptoms: Negative except as documented in HPI. Hematologic/Lymphatic symptoms: Negative except as documented in HPI. Allergy/immunologic symptoms: Negative except as documented in HPI. Additional review of systems information: All other systems reviewed and otherwise negative. Health Status Allergies: Allergic Reactions (Selected) Severity Not Documented Macrodantin- No reactions were documented. Morphine- Rash and rash.. Past Medical/ Family/ Social History Medical history Reviewed as documented in chart. Surgical history: Cardiac Stent in 2010 at 70 Years. Cardiac Stent on 01/30/2008 at 67 Years. Comments: 06/13/2020 8:52 EDT - EVA WESLEY RN PCI w/ Dalton stent to D1 Coronary artery bypass graft ([id number]) in 1992 at 52 Years. femur repair. Appendectomy ([id number]). uterine suspension. Hysterectomy ([id number]). back surgury. Cholecystectomy ([id number]). Hip replacement ([id number]). cataract surgury.. Family history: Cardiomyopathy Child Stroke Brother Heart [...] ISAAC RN . Problem list: Active Problems (20) Apnea, sleep Arthritis Atrial fibrillation with RVR Blood clot Cataract Chest pain Chronic anticoagulation Clotting disorder COPD Coronary artery disease Diabetes mellitus Emphysema GERD - Gastro-esophageal reflux disease Glaucoma High blood pressure History of obstructive sleep apnea Hx of pulmonary embolus Hyperlipidemia Multiple renal cysts Stented coronary artery . Physical Examination Vital Signs Vital Signs/Vital Measures 03/16/2021 11:32 EDT Systolic Blood Pressure 176 mmHg HI Diastolic Blood Pressure 68 mmHg Temperature Source Oral Temperature Mode Fahrenheit Temperature, Fahrenheit 97.3 Deg F Clinical Temperature, C 36.3 Deg C Peripheral Pulse Rate 61 bpm Respiratory Rate 16 Breaths/Min Oxygen Saturation 100 % Oxygen Therapy Mode Room air . Measurements 03/16/2021 11:32 EDT Height Source Stated Height Entry Format [place] Height/Length, [place] (ft) 5 ft Height/Length [place] 3 Inch CLINICALHEIGHT 160.02 cm Delaplane Body Weight 52.02 kg Weight Source, ED Critical estimated dosing weight Weight Entry Format [place] Weight [place] lb 158 lb CLINICALWEIGHT 71.82 kg Body Surface Area (BSA) 1.75 m2 Body Mass Index 28 kg/m2 HI . Oxygen Saturation 03/16/2021 11:32 EDT Oxygen Saturation 100 % . General: Alert, no acute distress. Skin: Warm, dry, pink. Head: Normocephalic, atraumatic. Neck: Supple, trachea midline, no tenderness. Eye: Normal conjunctiva. Ears, nose, mouth and throat: Oral mucosa moist. Cardiovascular: Regular rate and rhythm, No murmur, Normal peripheral perfusion, No edema. Respiratory: Lungs are clear to auscultation, respirations are non-labored, breath sounds are equal. Chest wall: No tenderness, No deformity. Back: Normal range of motion, Normal alignment, no step-offs, Thoracic: no vertebral point tenderness, Lumbar: Diffuse, mild, no vertebral point tenderness. Musculoskeletal: Normal ROM, normal strength, no swelling, no deformity, Distal upper extremity: Right, wrist, tenderness, swelling, equal radial pulses bilateral, no snuff-box tenderness, Lower extremity: Left, knee, tenderness. Gastrointestinal: Soft, Nontender, Non distended. Neurological: Alert and oriented to person, place, time, and situation, normal motor observed, normal speech observed. Psychiatric: Cooperative, appropriate mood & affect, normal judgment. Medical Decision Making Differential Diagnosis: Syncope, dysrhythmia, anemia, orthostatic hypotension, dizziness, UTI, contusion/fx, GE, dehydration, electrolyte imbalance. . Documents reviewed: Emergency department nurses' notes, emergency department records, prior records. Orders Include Previous Orders (Selected) Inpatient Orders Ordered Cardiac Monitoring: DME For Discharge: ED Fall Risk Documented: EKG: Normal Saline 1,000 mL: 125 mL/Hr, IntraVENous Pulse Oximetry Continuous Monitoring: Ordered (Collected) Lactic Acid Level: Completed .Automated Differential: Broset Violence Assessment: CBC w/ Auto Diff: CMP Comprehensive Metabolic Panel: CR Chest 1 Vw Portable: CR Hip Uni Comp Min 2 Vws RT: CR Knee Min 4 Vws LT: CR Wrist Min 3 Vws RT: CT Abdomen Pelvis WO: CT Head WO: CT Spine Cervical WO: CT Spine Lumbar WO: ED Adult Fall Risk Assessment: ED Adult Triage: ED C-SSRS: ED Clinical Reconciliation: ED manager case: Lactic Acid Level with Reflex if Indicated: Lipase Level: Normal Saline Bolus: 500 mL, 500 mL/Hr, IV Piggyback, 1-Time PT/INR Prothrombin Time: PTT: Saline Lock Insert: Troponin I Ultra: Urinalysis UA Rflx Microscopic Cult if Ind: Zofran: 4 mg, IV Push, 1-Time. color television console monitor: Normal sinus rhythm. Electrocardiogram: Time 03/16/2021 11:38:00, rate 59, normal sinus rhythm, No ST changes, no ectopy, normal OH & QRS intervals, EP Interp. Results review: All Results 03/16/2021 14:09 EDT Urine Type. U CleanCatch Urine Color Yellow Urine Appearance Clear Urine Specific [place] 1.014 Urine pH Dipstick 5.5 LOW Urine Leukocyte Esterase Negative Urine Nitrite Negative Urine Protein Dipstick Negative Urine Glucose Dipstick Negative Urine Ketones Dipstick Negative Urine Urobilinogen Dipstick 0.2 EU/dL Urine Bilirubin Dipstick Negative Urine Blood Dipstick Negative Urine Culture if Indicated Not Indicated 03/16/2021 11:44 EDT PT 25.6 Second(s) HI INR 2.6 HI PTT 34.1 Second(s) HI 03/16/2021 11:38 EDT Sodium Level 138 mmol/L Potassium Level 4.4 mmol/L Chloride Level 107 mmol/L Carbon Dioxide Level 27 mmol/L Anion Gap 8 LOW Glucose Level 161 mg/dL HI Blood Urea Nitrogen 21 mg/dL Creatinine Level 0.90 mg/dL eGFR >60 mL/min/1.73m2 eGFR NonAfrican 60 mL/min/1.73m2 Bun/Creatinine 23.3 HI Calcium Level 9.7 mg/dL Protein Total 8.8 Gram/dL HI Albumin Level 4.2 Gram/dL Globulin 4.6 Gram/dL HI A/G Ratio 0.9 LOW Bilirubin Total 0.6 mg/dL Alk Phos 76 Units/Liter AST 27 Units/Liter ALT 38 Units/Liter Lipase Level 105 Units/Liter Lactic Acid Level 2.2 mmol/L CRIT Troponin I Ultra <0.015 ng/mL WBC 9.7 K/uL RBC 3.84 Million/uL LOW Hgb 12.0 g/dL Hct 37.6 % MCV 97.9 fL HI MCH 31.3 pg MCHC 31.9 Gram/dL LOW Platelet Count 161 K/uL LOW MPV 10.0 fL RDW 13.0 % Neut % 78.4 % HI Neut # 7.63 K/uL HI Lymph % 15.6 % LOW Lymph # 1.52 x10(3)/uL [place] % 5.1 % [place] # 0.50 K/uL Eos % 0.0 % Eos # 0.00 x10(3)/uL Baso % 0.3 % Baso # 0.03 x10(3)/uL Slide Review No IG# 0.06 x10(3)/uL HI IG% 0.60 % . Radiology results: Radiology Results (Last 48 hours) [id number] -- 03/16/2021 11:24 CR Hip Uni Comp Min 2 Vws [...] agree with the above final transcribed report. . Procedure Fracture/ Dislocation Procedure Post-procedure exam: Circulation, motor, and sensory intact. Immobilization: Sling, Immobilizer, Splint: sugar-tong. Patient tolerated: Well. Impression and Plan Diagnosis Syncope - Admitting, Emergency medicine, Medical Right wrist fracture - Admitting, Emergency medicine, Medical Back strain - Admitting, Emergency medicine, Medical Plan Condition: Stable. Orders: Launch Orders Admit/Transfer/Discharge: Admit to Inpatient (Order): Start: 03/16/2021 15:29 EDT, Admit reason: syncope, right wrist fracture, back strain, Estimated length of stay 2 Midnights or LONGER, Level of Care: Telemetry unit, Admitting: MARIA ELENA DAVALOS MD-[facility], Launch Orders Consults: Consult to Physician (Order): Start: 03/16/2021 15:29 EDT, Consult to: SAMANTHA PINA MD-[facility], For right wrist fracture, [place] Notified by Physician, Group/Instructions: [facility] clinic ortho. Notes: I certify that the MLP/PRINTED CIRCUIT BOARD PANELS PLATER performed the services as delegated. . Electronically signed by Sivan [facility] Conversion Senior Consulting Manager Cerner at 02/04/2023 1:57 PM CDT documented in this encounter Plan of Treatment Not on file documented as of this encounter Visit Diagnoses Not on filedocumented in this encounter Care Teams Assistant Head Cashier Relationship Specialty Start Date End Date Jay Howell MD [address] [place] [phone] PCP - General Emergency Medicine 11/12/23 documented as of this encounter
--- OUTSIDE RECORDS SUMMARY | 2025-07-12 08:41 | XMS_ITS | Encounter Summary ---
Author Organization [employer] ([place], [place], [place], [place]) Address [address] [place] [address] Care Team Providers Care Posting Machine Operator Name Role Phone Jay Howell MD Primary Care Provider [phone] Encounter Details Date Type Department Care Team (Late st Contact Info) Description 03/16/2021 Transcribed Document [facility] [place] [address] [place] [address] ProviderJessie MD [address] [place], [place] [id number] Social History Tobacco Use Types Packs/Day Years Used Date Smoking Tobacco: Never Assessed Comments Unknown Sex and Gender Information Value Date Recorded Sex Assigned at Not on file Legal Sex Female 7:30 PM CDT Gender Identity Not on file Sexual Orientation Not on file documented as of this encounter Miscellaneous Notes * Cerner Conversion Note - Historical ProviderMD - 03/16/2021 11:24 AM CDT Broset Violence Assessment Entered On: 03/16/2021 12:59 EDT Performed On: 03/16/2021 12:57 EDT by Viri Gonsales RN Broset Violence Assessment Broset Violence Checklist of Symptoms : None Broset Violence Symptoms Subtotal : 0 Broset Violence Symptoms Indicator : Low risk (0) Viri Gonsales RN - 03/16/2021 12:57 EDT Electronically signed by Sivan [facility] Conversion Financial Services Counselor Cerner at 02/04/2023 1:58 PM CDT documented in this encounter Plan of Treatment Not on file documented as of this encounter Visit Diagnoses Not on filedocumented in this encounter Care Teams Posting Machine Operator Relationship Specialty Start Date End Date Jay Howell MD [address] [place] [phone] PCP - General Emergency Medicine 11/12/23 documented as of this encounter
--- OUTSIDE RECORDS SUMMARY | 2025-07-12 08:41 | XMS_ITS | Encounter Summary ---
Author Organization [employer] ([place], [place], [place], [place]) Address [address] [place] [address] Care Team Providers Care Mis Specialist Name Role Phone Jay Howell MD Primary Care Provider [phone] Encounter Details Date Type Department Care Team (Late st Contact Info) Description 03/16/2021 Transcribed Document [facility] [place] [facility] [place] [address] ProviderJessie MD [address] [place] [phone] Social History Tobacco Use Types Packs/Day Years [...] PM CDT Pain Assessment Entered On: 03/17/2021 6:46 EDT Performed On: 03/17/2021 4:13 EDT by Susan Marks RN-PATIENT CARE BEDSIDE NON-EXEMPT Intervention Information: HYDROmorphone Performed by Susan Marks RN-PATIENT CARE BEDSIDE NON-EXEMPT on 03/17/2021 03:43:00 EDT HYDROmorphone,0.5mg IV Push,Left Antecubital [place],Pain (Severe 7-10) Pain Assessment Pain Assessment : Follow-up assessment Pain Scale Used : 0-10 Scale Pain Improved by Intervention : Yes Susan Marks RN-PATIENT CARE BEDSIDE NON-EXEMPT - 03/17/2021 6:45 EDT Pain Scale Intensity : 4 Susan Marks RN-PATIENT CARE BEDSIDE NON-EXEMPT - 03/17/2021 6:45 EDT Image 4 - Images currently included in the form version of this document have not been included in the text rendition version of the form. documented in this encounter Plan of Treatment Not on file documented as of this encounter Visit Diagnoses Not on filedocumented in this encounter Care Teams Mis Specialist Relationship Specialty Start Date End Date Jay Howell MD [address] [place] [phone] PCP - General Emergency Medicine 11/12/23 documented as of this encounter
--- OUTSIDE RECORDS SUMMARY | 2025-07-12 08:42 | XMS_ITS | Encounter Summary ---
Author Organization [employer] ([place], [place], [place], [place]) Address [address] [place] [address] Care Team Providers Care Evp Operations Name Role Phone Jay Howell MD Primary Care Provider [phone] Encounter Details Date Type Department Care Team (Late st Contact Info) Description 06/13/2020 Transcribed Document [facility] [place] Family Medicine [address] [place] [address] ProviderJessie MD [address] [place] [address] Social History Tobacco Use Types Packs/Day Years Used Date Smoking Tobacco: Never Assessed Comments Unknown Sex and Gender Information Value Date Recorded Sex Assigned at Not on file Legal Sex Female 7:30 PM CDT Gender Identity Not on file Sexual Orientation Not on file documented as of this encounter Miscellaneous Notes * Cerner Conversion Note - Jessie Yuen MD - 06/13/2020 2:49 AM CDT ED Discharge Entered On: 06/13/2020 2:50 EDT Performed On: 06/13/2020 2:49 EDT by NICOLE BYERS RN Discharge Process Patient Disposition : Admit/Observe Personal Belongings With Patient : Yes Patient Education Completed : No IV Discontinued : No Nursing Documentation Completed : Yes NICOLE BYERS RN - 06/13/2020 2:49 EDT Admission, ED Nurse Report Accepted By : rosa m ChaseNurse Report (Hand Off) : Called Mode Of Departure : Wheelchair NICOLE BYERS RN - 06/13/2020 2:49 EDT documented in this encounter Plan of Treatment Not on file documented as of this encounter Visit Diagnoses Not on filedocumented in this encounter Care Teams Evp Operations Relationship Specialty Start Date End Date Jay Howell MD [address] [place] [phone] PCP - General Emergency Medicine 11/12/23 documented as of this encounter
--- OUTSIDE RECORDS SUMMARY | 2025-07-12 08:42 | XMS_ITS | Encounter Summary ---
Author Organization [place] [address] Care Team Providers Care Physicist Acoustics Name Role Phone No Pcp, Per Patient Primary Care Provider Evelyne prabhakar Reason for Visit * Reason Onset Date Comments Appointment Needed 06/28/2025 Encounter Details Date Type Department Care Team (Late st Contact Info) Description 06/28/2025 Telephone [facility] [address] [place] [address] Sukh Garner, DO [address] [place], [place] [id number] Appointment Needed Social History Tobacco Use Types Packs/Day Years Used Date Smoking Tobacco: Former Cigarettes Q uit: 1991 Passive Smoke Exposure: Past Smokeless Tobacco: Never Alcohol Use Standard Drinks/Week Comments Not Currently 0 (1 standard drink = 0.6 oz pur e alcohol) [facility] Utilities Answer Date Recorded In the past 12 months has [employer] electric, gas, oil, or water company threatened to shut off services in your home? No 06/23/2025 Overall Financial Resource Strain (CARDIA) Answe r Date Recorded How hard is it for you to pa y for the very basics like food, housing, medical care, and heating? Not very hard 06/23/2025 PHQ-2 Answer Date Recorded PHQ-2 Total Score 0 06/23/2025 [facility] [place] of Occupat ional Health - Occupational Stress [...] more. Never true 06/23/[address] [facility] IP Transportation Answer D ate Recorded In [...] as of this encounter Miscellaneous Notes * Telephone Encounter - Reba Ruiz MA - 06/28/2025 3:22 PM EDT Called and spoke with patient's sister and scheduled hospital follow up. * Telephone Encounter - Luis Pina NA - 06/28/2025 3:02 PM EDT Reason for requesting appointment: Hospital follow up Appointment Notes: nothing to book for HFU until August Appointment location: [facility] Call back number: [phone] (sister, goes by Sarah) documented in this encounter Plan of Treatment Upcoming Encounters Date Type Department Care Team (Late st Contact Info) Description 07/16/2025 10:00 AM EDT Office Visit [facility] [address] [place] [address] Renae Durand, DISPATCHER [employer] [address] [place] [address] documented as of this encounter Visit Diagnoses Not on filedocumented in this encounter Additional Health Concerns Infection Onset Date Last Indicated Resolved Time ESBL organism Comment:ESBL urine: 05/23, 06/1205/23/2025 06/12/2025 Assessment Noted Time A fall risk assessment has been complete d for the patient 02/08/2025 11:32 AM EDT documented as of this encounter Care Teams Physicist Acoustics Relationship Specialty Start Date End Date No Pcp, Per Patient PCP - General 06/04/24 documented as of this encounter
--- OUTSIDE RECORDS SUMMARY | 2025-07-12 08:42 | XMS_ITS | Encounter Summary ---
Author Organization [employer] ([place], [place], [place], [place]) Address [address] [place] [address] Care Team Providers Care Internet Webmaster Name Role Phone Jay Howell MD Primary Care Provider [phone] Encounter Details Date Type Department Care Team (Late st Contact Info) Description 06/13/2020 Transcribed Document [facility] [place] Family Medicine [address] [place] [address] ProviderJessie MD [address] [place] [address] Social History Tobacco Use Types Packs/Day Years Used Date Smoking Tobacco: Never Assessed Comments Unknown Sex and Gender Information Value Date Recorded Sex Assigned at Not on file Legal Sex Female 7:30 PM CDT Gender Identity Not on file Sexual Orientation Not on file documented as of this encounter Miscellaneous Notes * [employer]ner Conversion Note - Jessie Yuen MD - 06/13/2020 11:41 AM CDT Patient: SKYLER MONTOYA Age: 79 years Sex: Female : 1940 Associated Diagnoses: None Author: John Celis, Student-Pharmacist Coumadin Note Indication: Paroxysmal atrial fibrillation; PMH of PE and clotting disorder Goal INR: 2-3 Home Dose of Warfarin: -warfarin 3mg PO daily on Mondays and Wednesdays -warfarin 2mg PO daily on Tuesdays, , Fridays, Saturdays, and Sundays Bridge Therapy/ Other anticoagulants: N/A at this time Current Trend: Date: 06/12 INR: 1.8 Dose: -warfarin 3mg PO daily on Mondays and Wednesdays -warfarin 2mg PO daily on Tuesdays, , Fridays, Saturdays, and Sundays Drug Interactions: none at this time per patient's current MAR A/P: 1). Continue home dose today and trend INR. 2).Daily INR 3). Defer to MD for need for bridge therapy. Please contact the clinical pharmacist with any questions. Thank you for this consult! John Celis, PharmD student Luis Manuel Briones PharmD, BCPS [phone] Electronically signed by [facility] Conversion Technical Services Consultant Cerner at 02/04/2023 2:11 PM CDT documented in this encounter Plan of Treatment Not on file documented as of this encounter Visit Diagnoses Not on filedocumented in this encounter Care Teams Internet Webmaster Relationship Specialty Start Date End Date Jay Howell MD [address] [place] [phone] PCP - General Emergency Medicine 11/12/23 documented as of this encounter
--- OUTSIDE RECORDS SUMMARY | 2025-07-12 08:42 | XMS_ITS | Encounter Summary ---
Author Organization [employer] ([place], [place], [place], [place]) Address [address] [place] [address] Care Team Providers Care Utility Division Project Manager Name Role Phone Jay Howell MD Primary Care Provider [phone] Encounter Details Date Type Department Care Team (Late st Contact Info) Description 06/13/2020 Transcribed Document [facility] [place] [address] [place] [address] ProviderJessie MD [address] [place] [address] Social History Tobacco Use Types Packs/Day Years Used Date Smoking Tobacco: Never Assessed Comments Unknown Sex and Gender Information Value Date Recorded Sex Assigned at Not on file Legal Sex Female 7:30 PM CDT Gender Identity Not on file Sexual Orientation Not on file documented as of this encounter Miscellaneous Notes * [employer]ner Conversion Note - Historical ProviderMD - 06/13/2020 10:21 AM CDT Advance Directive Entered On: 06/13/2020 12:16 EDT Performed On: 06/13/2020 10:21 EDT by FARHNAA PATEL Advance Directive Patient has Advance Directive *Q : No, patient requests information about Advance Directive Patient Given Information about AD : Yes Advance Directive Comment : Discussed Living Will; Ms. Montoya requested information only; Gave copy of Personal Choices booklet; Ms. Montoya reported she would call for er nurse if/when she decides to complete one FARHANA PATEL - 06/13/2020 12:16 EDT documented in this encounter Plan of Treatment Not on file documented as of this encounter Visit Diagnoses Not on filedocumented in this encounter Care Teams Utility Division Project Manager Relationship Specialty Start Date End Date Jay Howell MD [address] [place] [phone] PCP - General Emergency Medicine 11/12/23 documented as of this encounter
--- OUTSIDE RECORDS SUMMARY | 2025-07-12 08:42 | XMS_ITS | Encounter Summary ---
Author Organization [employer] ([place], [place], [place], [place]) Address [address] [place] [address] Care Team Providers Care Printer Apprentice Name Role Phone Jay Howell MD Primary Care Provider [phone] Encounter Details Date Type Department Care Team (Late st Contact Info) Description 06/13/2020 Transcribed Document [facility] [place] [facility] [place] [address] [place] [address] ProviderJessie MD [address] [place] [address] Social History Tobacco Use Types Packs/Day Years Used Date Smoking Tobacco: Never Assessed Comments Unknown Sex and Gender Information Value Date Recorded Sex Assigned at Not on file Legal Sex Female 7:30 PM CDT Gender Identity Not on file Sexual Orientation Not on file documented as of this encounter Miscellaneous Notes * Cerner Conversion Note - Jessie ProviderMD - 06/13/2020 2:31 AM CDT ED Event Note Entered On: 06/13/2020 2:31 EDT Performed On: 06/13/2020 2:31 EDT by NICOLE BYERS RN ED Event Note ED Event Date/Time : 06/13/2020 2:31 EDT ED Description of Event : handoff report to MAHENDRA Berman. pt ready to be transported to floor. NICOLE BYERS RN - 06/13/2020 2:31 EDT Electronically signed by Sivan [facility] Conversion Gas Leak Tester Cerner at 02/04/2023 2:19 PM CDT documented in this encounter Plan of Treatment Not on file documented as of this encounter Visit Diagnoses Not on filedocumented in this encounter Care Teams Printer Apprentice Relationship Specialty Start Date End Date Jay Howell MD [address] [place] [phone] PCP - General Emergency Medicine 11/12/23 documented as of this encounter
--- OUTSIDE RECORDS SUMMARY | 2025-07-12 08:42 | XMS_ITS | Encounter Summary ---
Author Organization [employer] ([place], [place], [place], [place]) Address [address] [place] [address] Care Team Providers Care Clipping Marker Name Role Phone Jay Howell MD Primary Care Provider [phone] Encounter Details Date Type Department Care Team (Late st Contact Info) Description 06/13/2020 Transcribed Document [facility] [place] [address] [place] [address] ProviderJessie MD [address] [place] [address] Social History Tobacco Use Types Packs/Day Years Used Date Smoking Tobacco: Never Assessed Comments Unknown Sex and Gender Information Value Date Recorded Sex Assigned at Not on file Legal Sex Female 7:30 PM CDT Gender Identity Not on file Sexual Orientation Not on file documented as of this encounter Miscellaneous Notes * Cerner Conversion Note - Jessie Yuen MD - 06/13/2020 9:00 AM CDT Consult Phone Call Documentation Entered On: 06/13/2020 10:01 EDT Performed On: 06/13/2020 9:00 EDT by Joya Amaya [facility] Phone Call for Consults Consult Phone Call/Page Attempt : First call Consult Reason : chest pain Physician Requesting Consult : SMILEY ZAMORA MD Physician Requested for Consult : FREDY YAÑEZ MD-CAR Provider Service Notified Name : Cardiology Physician Covering for Consult : FREDY YAÑEZ MD-CAR Date and Time Call Returned : 06/13/2020 9:31 EDT Joya Amaya [facility] - 06/13/2020 10:00 EDT documented in this encounter Plan of Treatment Not on file documented as of this encounter Visit Diagnoses Not on filedocumented in this encounter Care Teams Clipping Marker Relationship Specialty Start Date End Date Jay Howell MD [address] [place] [phone] PCP - General Emergency Medicine 11/12/23 documented as of this encounter
--- OUTSIDE RECORDS SUMMARY | 2025-07-12 08:42 | XMS_ITS | Encounter Summary ---
Author Organization [employer] ([place], [place], [place], [place]) Address [address] [place] [address] Care Team Providers Care Forge Operator Helper Name Role Phone Jay Howell MD Primary Care Provider [phone] Encounter Details Date Type Department Care Team (Late st Contact Info) Description 06/13/2020 Transcribed Document [facility] [place] [address] [place] [address] ProviderJessie MD [address] [place] [address] Social History Tobacco Use Types Packs/Day Years Used Date Smoking Tobacco: Never Assessed Comments Unknown Sex and Gender Information Value Date Recorded Sex Assigned at Not on file Legal Sex Female 7:30 PM CDT Gender Identity Not on file Sexual Orientation Not on file documented as of this encounter Miscellaneous Notes * Cerner Conversion Note - Historical ProviderMD - 06/13/2020 3:38 PM CDT GARCIA/IMM Entered On: 06/13/2020 15:38 EDT Performed On: 06/13/2020 15:38 EDT by MARILYNN RAMÍREZ, RN-Utilization Review GARCIA/IMM Important Medicare Message Reviewed With : Patient Important Medicare Message Reviewed D/T : 06/13/2020 15:16 EDT MARILYNN RAMÍREZ, RN-Utilization Review - 06/13/2020 15:38 EDT Electronically signed by Sivan [facility] Conversion Edge Trimmer Cerner at 02/04/2023 2:14 PM CDT documented in this encounter Plan of Treatment Not on file documented as of this encounter Visit Diagnoses Not on filedocumented in this encounter Care Teams Forge Operator Helper Relationship Specialty Start Date End Date Jay Howell MD [address] [place] [phone] PCP - General Emergency Medicine 11/12/23 documented as of this encounter
--- OUTSIDE RECORDS SUMMARY | 2025-07-12 08:42 | XMS_ITS | Encounter Summary ---
Author Organization [employer] ([place], [place], [place], [place]) Address [address] [place] [address] Care Team Providers Care Paper Production Engineer Name Role Phone Jay Howell MD Primary Care Provider [phone] Encounter Details Date Type Department Care Team (Late st Contact Info) Description 06/13/2020 Transcribed Document [facility] [place] [address] [place] [address] ProviderJessie MD [address] [place] [address] Social History Tobacco Use Types Packs/Day Years Used Date Smoking Tobacco: Never Assessed Comments Unknown Sex and Gender Information Value Date Recorded Sex Assigned at Not on file Legal Sex Female 7:30 PM CDT Gender Identity Not on file Sexual Orientation Not on file documented as of this encounter Miscellaneous Notes * Cerner Conversion Note - Jessie ProviderMD - 06/13/2020 1:41 AM CDT ED Event Note Entered On: 06/13/2020 1:44 EDT Performed On: 06/13/2020 1:41 EDT by NICOLE BYERS RN ED Event Note ED Event Date/Time : 06/13/2020 1:41 EDT ED Description of Event : attempted to call report three times since 0000. assigned RN was unavailable to take report d/t workload. assigned RN states will call back when she can. will attempt to call in 15 min. NICOLE BYERS RN - 06/13/2020 1:41 EDT documented in this encounter Plan of Treatment Not on file documented as of this encounter Visit Diagnoses Not on filedocumented in this encounter Care Teams Paper Production Engineer Relationship Specialty Start Date End Date Jay Howell MD [address] [place] [phone] PCP - General Emergency Medicine 11/12/23 documented as of this encounter
--- OUTSIDE RECORDS SUMMARY | 2025-07-12 08:45 | XMS_ITS | Encounter Summary ---
Author Organization [employer] ([place], [place], [place], [place]) Address [address] [place] [address] Care Team Providers Care Painter Supervisor Name Role Phone Jay Howell MD Primary Care Provider [phone] Encounter Details Date Type Department Care Team (Late st Contact Info) Description 06/13/2020 Transcribed Document [facility] [place] [address] [place] [address] ProviderJessie MD [address] [place] [address] Social History Tobacco Use Types Packs/Day Years Used Date Smoking Tobacco: Never Assessed Comments Unknown Sex and Gender Information Value Date Recorded Sex Assigned at Not on file Legal Sex Female 7:30 PM CDT Gender Identity Not on file Sexual Orientation Not on file documented as of this encounter Miscellaneous Notes * Cerner Conversion Note - Jessie ProviderMD - 06/13/2020 12:28 AM CDT Education-(VTE) / (DVT) Entered On: 06/13/2020 3:35 EDT Performed On: 06/13/2020 0:28 EDT by PAUL GERBER RN Teaching/Learning Assessment Barriers To Learning : None evident Individuals Taught : Patient, Spouse Readiness to Learn : Cooperative Readiness to Learn : Explanation PAUL GERBER RN - 06/13/2020 3:35 EDT documented in this encounter Plan of Treatment Not on file documented as of this encounter Visit Diagnoses Not on filedocumented in this encounter Care Teams Painter Supervisor Relationship Specialty Start Date End Date Jay Howell MD [address] [place] [phone] PCP - General Emergency Medicine 11/12/23 documented as of this encounter
--- OUTSIDE RECORDS SUMMARY | 2025-07-12 08:45 | XMS_ITS | Encounter Summary ---
Author Organization [employer] ([place], [place], [place], [place]) Address [address] [place] [address] Care Team Providers Care Rerecording Mixer Name Role Phone Jay Howell MD Primary Care Provider [phone] Encounter Details Date Type Department Care Team (Late st Contact Info) Description 06/13/2020 Transcribed Document [facility] [place] [address] [place] [address] ProviderJessie MD [address] [place] [address] Social History Tobacco Use Types Packs/Day Years Used Date Smoking Tobacco: Never Assessed Comments Unknown Sex and Gender Information Value Date Recorded Sex Assigned at Not on file Legal Sex Female 7:30 PM CDT Gender Identity Not on file Sexual Orientation Not on file documented as of this encounter Miscellaneous Notes * Cerner Conversion Note - Jessie ProviderMD - 06/13/2020 3:18 AM CDT Spiritual Care Assessment Entered On: 06/13/2020 12:16 EDT Performed On: 06/13/2020 10:21 EDT by FARHANA PATEL General Information Referred by : Patient Referral Reason Comment : Living Will referral Ministry Provided to : Patient, Family/Significant other Mu-Ism Preference : Jewish FARHANA PATEL - 06/13/2020 12:13 EDT Interventions Advance Directive Information Provided : Yes Advance Directive Comment : Discussed Living Will; Ms. Montoya requested information only; Gave copy of Personal Choices booklet; Ms. Montoya reported she would call for sociology instructor if/when she decides to complete one Emotional Support : Empathic/Engaged listening, Family/Significant other supported, Feelings expressed, Information provided Spiritual and Mu-Ism : Spiritual/Mu-Ism support provided Change, Adjustment and Loss : End of life discussion/care, Hope with the loss discussed, Relationships/Community/Support system discussed Ethics, Advocacy and Referral : Supported patient's loved ones, Advocated for patient, Resources provided FARHANA PATEL - 06/13/2020 12:13 EDT Outcomes Appreciation Expressed : Yes Information Received and Understood : Yes Thoughts, Feelings and Emotions Exp. : Yes Supportive Relationships Described : FARHANA PATEL - 06/13/2020 12:13 EDT Electronically signed by Sivan [facility] Conversion Sharemilker Cerner at 02/04/2023 2:00 PM CDT documented in this encounter Plan of Treatment Not on file documented as of this encounter Visit Diagnoses Not on filedocumented in this encounter Care Teams Rerecording Mixer Relationship Specialty Start Date End Date Jay Howell MD [address] [place] [phone] PCP - General Emergency Medicine 11/12/23 documented as of this encounter
--- OUTSIDE RECORDS SUMMARY | 2025-07-12 08:45 | XMS_ITS | Encounter Summary ---
Author Organization [employer] ([place], [place], [place], [place]) Address [address] [place] [address] Care Team Providers Care Social Work Faculty Member Name Role Phone Jay Howell MD Primary Care Provider [phone] Encounter Details Date Type Department Care Team (Late st Contact Info) Description 06/13/2020 Transcribed Document [facility] [place] [address] [place] [address] ProviderJessie MD [address] [place] [address] Social History Tobacco Use Types Packs/Day Years Used Date Smoking Tobacco: Never Assessed Comments Unknown Sex and Gender Information Value Date Recorded Sex Assigned at Not on file Legal Sex Female 7:30 PM CDT Gender Identity Not on file Sexual Orientation Not on file documented as of this encounter Miscellaneous Notes * Cerner Conversion Note - Jessie ProviderMD - 06/13/2020 1:24 PM CDT Initial Discharge Planning Entered On: 06/13/2020 13:29 EDT Performed On: 06/13/2020 13:24 EDT by JEFE SHELTON, Die Maker-Balance Recesser Initial Assessment I Previously Documented Living Environment : No qualifying data available. Living Situation : Home Patient Lives With : Spouse Is the Patient a Caregiver at Home? : No Employment/Vocation : retired Emergency Contact #1 : Johnny Montoya Emergency Contact #1 Emergency Contact #1 Relationship : Spouse Emergency Contact #2 : Christian Buitrago Emergency Contact #2 Emergency Contact #2 Relationship : Son Enter Doctors Name : Dr. Avtar Moeller Does Patient have PCP Listed? : Yes Medical Durable Power of Stretcher And Drier Name : No JEFE SHELTON Die Maker-Balance Recesser - 06/13/2020 13:24 EDT Initial Assessment II Sensory and Motor Deficits : Weakness Current Home Treatments and Equipment : CPAP, Walker JEFE SHELTON Die Maker-Balance Recesser - 06/13/2020 13:24 EDT Discharge Needs I Anticipated Discharge To, CM : Home with home health Current Home Treatment/Equipment : Current Home Treatment/Equipment No qualifying data available. Post Acute/Home Treatments : None Documentation Status Complete : Yes JEFE SHELTON Social Worker-Balance Recesser - 06/13/2020 13:24 EDT Discharge Needs II Professional Skilled Services : Professional Skilled Services No qualifying data available. Needs Assistance with Transportation : No Discharge Options Discussed with Patient : Acute rehabilitation, Discharge transportation, DME, Home Health, Short term rehabilitation JEFE SHELTON Die Maker-Balance Recesser - 06/13/2020 13:24 EDT Narrative Note Narrative Note : Patient is a low readmission risk of 38. Patient reported that she had HH in 2008 after a hip replacement. Patient stated that she has also been inpatient at [facility]. Patient reported that she is ADL independent but uses a walker when she walks around the park. Patient reported that she has transportation home. She denied having any discharge needs. Cm will continue to follow. JEFE SHELTON Die Maker-Balance Recesser - 06/13/2020 13:24 EDT documented in this encounter Plan of Treatment Not on file documented as of this encounter Visit Diagnoses Not on filedocumented in this encounter Care Teams Social Work Faculty Member Relationship Specialty Start Date End Date Jay Howell MD [address] [place] [phone] PCP - General Emergency Medicine 11/12/23 documented as of this encounter
--- OUTSIDE RECORDS SUMMARY | 2025-07-12 08:45 | XMS_ITS | Encounter Summary ---
Author Organization [employer] ([place], [place], [place], [place]) Address [address] [place] [address] Care Team Providers Care Lumber Marker Name Role Phone Jay Howell MD Primary Care Provider [phone] Encounter Details Date Type Department Care Team (Late st Contact Info) Description 06/13/2020 Transcribed Document [facility] [place] [address] [place] [address] ProviderJessie MD [address] [place] [address] Social History Tobacco Use Types Packs/Day Years Used Date Smoking Tobacco: Never Assessed Comments Unknown Sex and Gender Information Value Date Recorded Sex Assigned at Not on file Legal Sex Female 7:30 PM CDT Gender Identity Not on file Sexual Orientation Not on file documented as of this encounter Miscellaneous Notes * Cerner Conversion Note - Historical ProviderMD - 06/13/2020 5:00 AM CDT Chart Check - Review Order Profile Entered On: 06/13/2020 6:12 EDT Performed On: 06/13/2020 5:00 EDT by PAUL GERBER RN Chart Check Powerplans Initiated/Discontinued as Appropriate : Yes All Active Orders Reviewed : Yes PAUL GERBER RN - 06/13/2020 6:12 EDT Electronically signed by Sivan [facility] Conversion Mentally Impaired Teacher Cerner at 02/04/2023 2:05 PM CDT documented in this encounter Plan of Treatment Not on file documented as of this encounter Visit Diagnoses Not on filedocumented in this encounter Care Teams Lumber Marker Relationship Specialty Start Date End Date Jay Howell MD [address] [place] [phone] PCP - General Emergency Medicine 11/12/23 documented as of this encounter
--- OUTSIDE RECORDS SUMMARY | 2025-07-12 08:45 | XMS_ITS | Encounter Summary ---
Author Organization [employer] ([place], [place], [place], [place]) Address [address] [place] [address] Care Team Providers Care Supervisor Wet Room Name Role Phone Jay Howell MD Primary Care Provider [phone] Encounter Details Date Type Department Care Team (Late st Contact Info) Description 06/13/2020 Transcribed Document [facility] [place] Family Medicine [address] [place] [address] ProviderJessie MD [address] [place] [address] Social History Tobacco Use Types Packs/Day Years Used Date Smoking Tobacco: Never Assessed Comments Unknown Sex and Gender Information Value Date Recorded Sex Assigned at Not on file Legal Sex Female 7:30 PM CDT Gender Identity Not on file Sexual Orientation Not on file documented as of this encounter Miscellaneous Notes * Cerner Conversion Note - Jessie ProviderMD - 06/13/2020 12:01 AM CDT Admission History, Adult Entered On: 06/13/2020 3:18 EDT Performed On: 06/13/2020 3:08 EDT by PAUL GERBER RN Advance Directive Patient has Advance Directive *Q : No, patient requests information about Advance Directive PAUL GERBER RN - 06/13/2020 3:09 EDT Anesthesia/Transfusion History Family History of Anesthesia Reaction : Prior transfusion reaction Type of Transfusion Reaction : Hemolytic reaction Transfusion History : Prior anesthesia without reaction Family History of Anesthesia Reaction : None PAUL GERBER RN - 06/13/2020 3:09 EDT Functional Assessment Living Situation : Home Patient Lives With : Spouse Persons Assisting Patient at Home : Spouse Current Daily Living Assistance : None Sensory Deficits : None Mobility Assistance Prior to Admission : Independent THOMAS Hx Falls Immediate/Within 3 Months : No Current Home Treatments : Blood glucose monitoring, CPAP Professional Skilled Services : None Special Services and Community Resources : None PAUL GERBER RN - 06/13/2020 3:09 EDT General Info Preferred Name : ilsa Arrived From : Home Mode of Arrival on Unit : Wheelchair Legal Guardian : Responsible adult Support Person/Patient Human Resources Generalist : Yes Support Person/Pt Rep Name : Willard Contact Password : Marvin Support Person/Pt Rep Contact Information : [phone] Want Family/Rep/Phys Notified of Admit : No Emergency Contact #1 : Johnny Montoya Emergency Contact #1 Emergency Contact #1 Relationship : Spouse Emergency Contact #2 : Christian Buitrago Emergency Contact #2 Emergency Contact #2 Relationship : Son Chief Complaint : pt here c/o chest pain and high blood pressure thats been going on for several days Information Obtained From : Patient Primary Language : Sri Lankan Preferred Communication Mode : Verbal Communication Barrier : None Jewelry Bench Worker Needed : No PAUL GERBER RN - 06/13/2020 3:09 EDT Fall Risk Scales ABCs Fall Injury Risk Identification : Age, Coagulation ABC Fall Injury Risk : Moderate to high injury risk Injury Moderate to High Risk Interventions : Patient room close to nurses station, Supervise toileting as indicated, Transport methods appropriate to patient THOMAS Hx Falls Immediate/Within 3 Months : No Ursula Secondary Diagnosis : Yes THOMAS Use of Ambulatory Aid : Bed rest/Nurse assist THOMAS IV Therapy or IV Access : Yes Thomas Gait/Transferring : Normal, bedrest, immobile Thomas Mental Status : Oriented to own ability Thomas Fall Risk Score : 35 THOMAS Fall Scale Risk Level : 25-45 Medium Risk [place] Fall Interventions : Adequate lighting, Bed in low position, Call device within reach, Hourly comfort/safety rounds, Non-slip footwear, Personal items within reach, Reinforced to call for assistance before getting out of bed, Room free of clutter/spills, Upper side-rails up, Wheels locked, Wires/Cords secured Fall Moderate to High Risk Interventions : High Risk for Fall sign in place per policy, Patient room close to nurses station, Supervise toileting as indicated, Transport methods appropriate to patient Barriers to Learning : None evident Individuals Taught : Patient, Spouse Readiness to Learn : Cooperative Teaching Method : Explanation Fall Risk Scale Calc Temp : 0 PAUL GERBER RN - 06/13/2020 3:09 EDT Health Histories Smoking Status : Former smoker, quit more than 30 days ago Smokeless Tobacco Status : Never PAUL GERBER RN - 06/13/2020 3:09 EDT Social History (As Of: 06/13/2020 03:18:48 EDT) Tobacco: Smoking Status Former smoker. Comments: [...] Source : Stated Height Entry Format : [place] Height, Feet : 5 ft(Converted to: 152 cm, 60 Inch) Height, Inches : 3 Inch(Converted to: 0 ft 3 Inch, 7.62 cm) Clinical Height : 160.02 cm Weight Source : Bed scale Weight Entry Format : [place] Clinical Dosing Weight : 75.32 kg Weight, Pounds : 165.7 lb Body Surface Area (BSA) : 1.79 m2 Body Mass Index : 29.4 kg/m2 (HI) [place] Body Weight : 52 kg PAUL GERBER RN - 06/13/2020 3:09 EDT Infectious Disease History Has the patient [...] criteria Active Surveillance Screen Negative : Yes Tuberculosis Symptoms : None PAUL GERBER RN - 06/13/2020 3:09 EDT Tetanus Immunization Status Previous Tetanus Immunizations : No qualifying data available. Tetanus Immunization : Less than 5 years PAUL GERBER RN - 06/13/2020 3:09 EDT Influenza Vaccine Asmt, Adult Previous Vaccines from Immunization Schedule : No qualifying data available. Influenza Immunization, Current Season : Outside of influenza season PAUL GERBER RN - 06/13/2020 3:09 EDT Pneumococcal Vaccine Previous Vaccines from Immunization Schedule : No qualifying data available. Pneumonia Immunization Received : Unknown Pneumococcal Risk Assessment < Age 65 : N/A- Patient 65 years of age or older Pneumococcal Vaccine Contraindications : No contraindications to pneumococcal vaccine Transplant Workup/Recent Transplant : No Order for Pneumococcal Vaccine : Order for pneumococcal vaccine sent to pharmacy PAUL GERBER RN - 06/13/2020 3:09 EDT Order Details Transport Mode Order Detail : Stretcher/Gurney Isolation Precautions Order Detail : Standard Precautions Order Detail : N/A IV Order Detail : 1 Oxygen Order Detail : 0 Nurse Collect Order Detail : 0 Lift/Transfer : Independent Central Line Order Detail : No Room Service : Appropriate Arterial Line : No PAUL GERBER RN - 06/13/2020 3:09 EDT Nutrition History Feeding Ability : Independent Adaptive Feeding Equipment : None Adaptive Feeding Equipment : Regular Eating Poorly Due to Decreased Appetite : No Unplanned Weight Loss in Past 3-6 Months : No Malnutrition Screening Tool Total(mal) : 0 Malnutrition Screening Tool Risk Level : Patient not at risk PAUL GERBER RN - 06/13/2020 3:09 EDT [place] Suicide Severity Rating Scale (C-SSRS) CSSRS Past Month Wish to be : No CSSRS Past Month Suicidal Thoughts : No CSSRS Lifetime Suicide Behavior : No Suicide Severity Rating Score : 0 Suicide Severity Rating : No Additional Care Required at this time PAUL GERBER RN - 06/13/2020 3:09 EDT Psychosocial History Chronic/Terminal Illness w/Freq Visits : No Currently in Unsafe Situation : No PAUL GERBER RN - 06/13/2020 3:09 EDT Sleep Apnea Risk Assmt BiPAP/CPAP Ordered for Home Use : Yes Hx of Obstructive Sleep Apnea Diagnosis : Yes BiPAP/CPAP Used at Home : Yes Age over 50 Years Old : Yes Gender Male : No PAUL GERBER RN - 06/13/2020 3:09 EDT Spiritual/Cultural Needs Any Spiritual/Cultural Needs or Requests : Yes Jewish Preference : Roman Catholic Spiritual/Cult Concerns/Desires/Needs : Prayer Spiritual/Cultural Needs Comment : joseph after surgery or major surgery PAUL GERBER RN - 06/13/2020 3:09 EDT Valuables and Belongings Valuables and Belongings : Clothing, Jewelry, Personal devices, Personal items, No comfort items, No assistive devices, No respiratory devices, No medications Clothing : Common streetwear Clothing Disposition : With patient, Declines to send to security/safe Personal Device Disposition : With patient, Declines to send to security/safe Jewelry : Ring, Ring-plain band, Watch Jewelry Disposition : With patient, Declines to send to security/safe Personal Devices : Dentures, partial plate, Glasses Personal Items : Cell phone, Purse Personal Items Disposition : With patient, Declines to send to security/safe PAUL GERBER RN - 06/13/2020 3:09 EDT documented in this encounter Plan of Treatment Not on file documented as of this encounter Visit Diagnoses Not on filedocumented in this encounter Care Teams Supervisor Wet Room Relationship Specialty Start Date End Date Jay Howell MD [address] [place] [phone] PCP - General Emergency Medicine 11/12/23 documented as of this encounter
--- OUTSIDE RECORDS SUMMARY | 2025-07-12 08:45 | XMS_ITS | Encounter Summary ---
Author Organization [employer] ([place], [place], [place], [place]) Address [address] [place] [address] Care Team Providers Care Wire Hanger Name Role Phone Jay Howell MD Primary Care Provider [phone] Encounter Details Date Type Department Care Team (Late st Contact Info) Description 06/13/2020 Transcribed Document [facility] Family Medicine [address] [place] [id number] Jessie Yuen MD [address] [place] [address] Social History Tobacco Use Types Packs/Day Years Used Date Smoking Tobacco: Never Assessed Comments Unknown Sex and Gender Information Value Date Recorded Sex Assigned at Not on file Legal Sex Female 7:30 PM CDT Gender Identity Not on file Sexual Orientation Not on file documented as of this encounter Miscellaneous Notes * Cerner Conversion Note - Jessie Yuen MD - 06/13/2020 2:55 AM CDT DATE OF ADMISSION: 06/12/2020 ADMITTING PHYSICIAN: MARIA ELENA DAVALOS MD PRIMARY CARE PHYSICIAN: Dr. Avtar Moeller. CHIEF COMPLAINT: Chest pain. HISTORY OF PRESENT ILLNESS: This is an 79-year-old female with known history of coronary artery disease, status post CABG; history of multiple stent placements. The patient presented to ER because of chest pain. The patient has been having chest pain associated with shortness of breath. No fever or cough. The patient came in, blood work shows normal troponin with slightly elevated potassium. The patient was admitted to the hospital for Cardiology evaluation. The patient is anxious, lying in bed, mild distress. Spouse at bedside. SYSTEMIC REVIEW: GENERAL: No fever or chills. HEAD: No headache or dizziness. EYES: No change of vision. EARS: No earache. NOSE: No epistaxis. THROAT: No sore throat. RESPIRATORY: Positive for shortness of breath. No cough. CARDIAC: Positive for chest pain. GI: Positive for nausea. No vomiting. URINARY: No hematuria. MUSCULOSKELETAL: Body ache. NEUROLOGICAL: No focal numbness or weakness. SKIN: No new rashes. ENDOCRINE: No heat or cold intolerance. PAST MEDICAL HISTORY: 1. History of coronary [...] 160 mg daily. 15. Coumadin as directed. PHYSICAL EXAMINATION: VITAL SIGNS: Blood pressure 210/82, temperature 97.8, heart rate 66, respiratory rate 22. HEENT: Head is atraumatic, normocephalic. Pupils are round and reactive. Eyes, no conjunctival injection or discharge. Ears, no discharge. Nose, no bleeding or discharge. Mouth dry. NECK: Supple. Full range of motion. CHEST: Clear to auscultation bilaterally. No wheeze, crackle, rhonchi. HEART: S1 and S2 heard. Regular rate and rhythm. ABDOMEN: Soft. Audible bowel sounds. No tenderness. No guarding. No rebound tenderness. EXTREMITIES: No edema, erythema, or tenderness. NEUROLOGICAL: No apparent focal motor or sensory deficit. The patient is alert, awake, oriented x3. Intact cranial nerves. PSYCHIATRIC: Positive for anxiety. SKIN: No apparent rashes or induration. ENDOCRINE: No thyromegaly or tenderness. GENERAL: The patient is lying in bed, anxious. Spouse at bedside. LABORATORY DATA AND STUDIES: Sodium 129, potassium 5.2, chloride 101, CO2 of 19, glucose 110, BUN 9, creatinine 0.8, calcium 8.9, protein 8.3, albumin 3.8, globulin 4.5, bilirubin 0.7, alkaline phosphatase 65, AST 46, ALT 34, lipase 138. Troponin 0.015. White blood cells 5.8, hemoglobin 12.2, hematocrit 36.3, platelets 182. INR 1.8. ASSESSMENT AND PLAN: 1. Chest pain. The patient was admitted to the hospital with chest pain. The patient with history of stent placement, coronary artery bypass grafting. Has normal troponin in the ER. Recheck troponin in a.m., and we will consult Cardiology. 2. Hypertension. We will start hydralazine as needed and resume home medication. 3. Anxiety. We will start Ativan as needed. 4. Hyperlipidemia, on statin, to be continued. 5. History of clotting disorder. The patient is on Coumadin, to be continued. We will consult Pharmacy to dose Coumadin. 6. Gastrointestinal prophylaxis, Pepcid. 7. Deep venous thrombosis prophylaxis, compression boot. Plan discussed with the patient, with ER physician. Chart was reviewed. Time spent, 55 minutes. /[id number] MD MCKAY Priest/NABOR / MCKAY / BONILLAL CC: Dr. Avtar Moeller Electronically signed by [facility] Conversion Rn Paralegal Cerner at 02/04/2023 2:09 PM CDT documented in this encounter Plan of Treatment Not on file documented as of this encounter Visit Diagnoses Not on filedocumented in this encounter Care Teams Wire Hanger Relationship Specialty Start Date End Date Jay Howell MD [address] [place] [phone] PCP - General Emergency Medicine 11/12/23 documented as of this encounter
--- OUTSIDE RECORDS SUMMARY | 2025-07-12 08:45 | XMS_ITS | Encounter Summary ---
Author Organization [employer] ([place], [place], [place], [place]) Address [address] [place] [address] Care Team Providers Care Manual Machinist Name Role Phone Jay Howell MD Primary Care Provider [phone] Encounter Details Date Type Department Care Team (Late st Contact Info) Description 06/13/2020 Transcribed Document [facility] [place] [address] [place] [address] ProviderJessie MD [address] [place] [address] Social History Tobacco Use Types Packs/Day Years Used Date Smoking Tobacco: Never Assessed Comments Unknown Sex and Gender Information Value Date Recorded Sex Assigned at Not on file Legal Sex Female 7:30 PM CDT Gender Identity Not on file Sexual Orientation Not on file documented as of this encounter Miscellaneous Notes * Cerner Conversion Note - Jessie ProviderMD - 06/13/2020 12:28 AM CDT Pain Assessment Entered On: 06/13/2020 17:11 EDT Performed On: 06/13/2020 12:27 EDT by JOAO NASSAR RN Intervention Information: acetaminophen Performed by JOAO NASSAR RN on 06/13/2020 11:27:00 EDT acetaminophen,650mg Oral,Other (See Comment) Pain Assessment Pain Assessment : Follow-up assessment JOAO NASSAR RN - 06/13/2020 17:11 EDT Electronically signed by Gayle Finnegan Conversion Cardiothoracic Anesthesia Technician Cerner at 02/04/2023 1:59 PM CDT documented in this encounter Plan of Treatment Not on file documented as of this encounter Visit Diagnoses Not on filedocumented in this encounter Care Teams Manual Machinist Relationship Specialty Start Date End Date Jay Howell MD [address] [place] [phone] PCP - General Emergency Medicine 11/12/23 documented as of this encounter
--- OUTSIDE RECORDS SUMMARY | 2025-07-12 08:45 | XMS_ITS | Encounter Summary ---
Author Organization [place] [address] Care Team Providers Care Pilot Boat Deckhand Name Role Phone No Pcp, Per Patient Primary Care Provider Evelyne prabhakar Encounter Details Date Type Department Care Team (Late st Contact Info) Description 05/21/2025 Orders Only [facility] [address] [facility] [address] [place] [address] Mary Lombardi MA PAD (peripheral artery disease); Critical limb ischemia of left lower extremity (HCC) Social History Tobacco Use Types Packs/Day Years Used Date Smoking Tobacco: Former Cigarettes Q uit: 1991 Passive Smoke Exposure: Past Smokeless Tobacco: Never Alcohol Use Standard Drinks/Week Comments Not Currently 0 (1 standard drink = 0.6 oz pur e alcohol) [facility] Utilities Answer Date Recorded In the past 12 months has [employer], gas, oil, or water [employer] threatened to shut off services in your home? No 05/01/2025 Overall Financial Resource Strain (CARDIA) Answe r Date Recorded How hard is it for you to pa y for the very basics like food, housing, medical care, and heating? Not hard at all 05/01/2025 PHQ-2 Answer Date Recorded PHQ-2 Total Score 0 05/01/2025 [facility] - Occupational Stress [...] money to get more. Never true 05/01/2025 [facility] IP Transportation Answer D ate Recorded [...] 10:00 AM EDT Office [place] [address] Renae Durand, NEGATIVE RETOUCHER [address] [place] [address] Scheduled Orders Name Type Priority Associated Diagnoses Orde r Schedule SURGICAL/PROCEDURE CASE REQUEST Procedures Routine PAD (peripheral artery disease) Critical limb ischemia of left lower extremity (HCC) Ordered: 05/21/2025 documented as of this encounter Visit Diagnoses Diagnosis PAD (peripheral artery disease) Unspecified disorders of arteries and arterioles Critical limb ischemia of left lower extremity (HCC) documented in this encounter Additional Health Concerns Assessment Noted Time A fall risk assessment has been complete d for the patient 02/08/2025 11:32 AM EDT documented as of this encounter Care Teams Pilot Boat Deckhand Relationship Specialty Start Date End Date No Pcp, Per Patient PCP - General 06/04/24 documented as of this encounter
--- OUTSIDE RECORDS SUMMARY | 2025-07-12 08:45 | XMS_ITS | Encounter Summary ---
Author Organization [employer] ([place], [place], [place], [place]) Address [address] [place] [address] Care Team Providers Care Chart Clerk Name Role Phone Jay Howell MD Primary Care Provider [phone] Encounter Details Date Type Department Care Team (Late st Contact Info) Description 06/13/2020 Transcribed Document [facility] [place] [facility] [place] [address] [place] [address] ProviderJessie MD [address] [place] [address] Social History Tobacco Use Types Packs/Day Years [...] Yuen MD - 06/13/2020 2:48 AM CDT Education-Smoking Cessation Entered On: 06/13/2020 3:36 EDT Performed On: 06/13/2020 2:48 EDT by PAUL GERBER RN Teaching/Learning Assessment Barriers To Learning : None evident Individuals Taught : Patient, Spouse Readiness to Learn : Cooperative Readiness to Learn : Explanation PAUL GERBER RN - 06/13/2020 3:35 EDT Education: Smoking/Tobacco Cessation Topics Smoking Cess Educatin Grid Advice Given to Stop Smoking : Verbalizes understanding Risks/Benefits of Smoking : Verbalizes understanding Second Hand Smoke : Verbalizes understanding Ed-Smoking Cessation Programs : Verbalizes understanding PAUL GERBER RN - 06/13/2020 3:35 EDT Tobacco Cessation Counseling Grid Recognizing Danger [...] Tobacco Cues : Verbalizes understanding Activities to [place] With Smoking Urges : Verbalizes understanding Basic Information About Quitting : Verbalizes understanding Tobacco Use Increases Chance of Relapse : Verbalizes understanding Withdrawal Symptoms Peak After Quitting : Verbalizes understanding Addictive Nature of Tobacco : Verbalizes understanding PAUL GERBER RN - 06/13/2020 3:35 EDT documented in this encounter Plan of Treatment Not on file documented as of this encounter Visit Diagnoses Not on filedocumented in this encounter Care Teams Chart Clerk Relationship Specialty Start Date End Date Jay Howell MD [address] [place] [phone] PCP - General Emergency Medicine 11/12/23 documented as of this encounter
--- OUTSIDE RECORDS SUMMARY | 2025-07-12 08:45 | XMS_ITS | Encounter Summary ---
Author Organization [employer] ([place], [place], [place], [place]) Address [address] [place] [address] Care Team Providers Care Alpaca Farmer Name Role Phone Jay Howell MD Primary Care Provider [phone] Encounter Details Date Type Department Care Team (Late st Contact Info) Description 06/13/[address] [facility] [place] [address] [place] [address] ProviderJessie MD [address] [place] [address] Social History Tobacco Use Types Packs/Day Years Used Date Smoking Tobacco: Never Assessed Comments Unknown Sex and Gender Information Value Date Recorded Sex Assigned at Not on file Legal Sex Female 7:30 PM CDT Gender Identity Not on file Sexual Orientation Not on file documented as of this encounter Miscellaneous Notes * Cerner Conversion Note - Historical ProviderMD - 06/13/2020 4:20 PM CDT Event Note Entered On: 06/13/2020 16:23 EDT Performed On: 06/13/2020 16:20 EDT by JOAO NASSAR RN Event Note Event Date/Time : 06/13/2020 7:45 EDT Event Location : Assigned room Event Details : Other: Fall and change in condition JOAO NASSAR RN - 06/13/2020 16:20 EDT Description of Event : pt family called to say pt has fallen in the floor. Upon arrival pt is in the floor. Pt is holding her up states that she was returning from the bathroom and when she got to the bed she became dizzy and fell onto the floor and hit the back of her head on the floor. Pt assisted to bed patient BP is 81/38 HR NSR 65 O2 sats 95 on RA. FSBS noted. Fall team and SHAKE SAWYER team notified but they were in another SHAKE SAWYER call. PT feels clammy and light headed and weak. All other assessments were negative. Charge nurse present. Pt placed in trendelenberg position. Pt BP increased to 120/48. Pt still feels weak. MD Dr Shipman notified and Dr Pacheco notified. Dr Shipman saw pt. Head CT ordered and pt monitored to CT. FLuid bolus started. Pt improving but now has a HALL tylenol given with relief. CT results(neg for bleed noted and called to MD) Orders to give only valsartin this afternoon for BP. JOAO NASSAR RN - 06/13/2020 16:24 EDT Electronically signed by [facility] Conversion Validation Scientist Cerner at 02/04/2023 2:04 PM CDT documented in this encounter Plan of Treatment Not on file documented as of this encounter Visit Diagnoses Not on filedocumented in this encounter Care Teams Alpaca Farmer Relationship Specialty Start Date End Date Jay Howell MD [address] [place] [phone] PCP - General Emergency Medicine 11/12/23 documented as of this encounter
[2025-07-12 08:48] LABS: Alanine Aminotransferase 31 U/L (12-78); Albumin Level 3.4 g/dl (3.5-5.0); Albumin/Globulin Ratio 1.2 (1.1-1.8); Alkaline Phosphatase 147 U/L (38-126); Anion Gap 9.1 mEq/L (5-15); Aspartate Amino Transferase 43 U/L (14-36); Bilirubin,Total 0.5 mg/dl (0.2-1.3); Blood Urea Nitrogen 28 mg/dl (7-17); Calcium 8.5 mg/dl (8.4-10.2); Carbon Dioxide 24 mmol/L (22.0-30.0); Chloride 105 mmol/L (98-107); Cholesterol 84 mg/dl (140-200); Creatinine,Serum 1.10 mg/dl (0.52-1.04); Estimated Glomerular Filt Rate 47 ml/min (>60); GFR (African American) 57 ML/MIN (>60); Globulin 2.9 g/dL (1.3-3.2); Glucose 99 mg/dl (74-100); HDL Cholesterol 34 mg/dl (40-60); Potassium 4.1 mmoL/L (3.5-5.1); Sodium 134 mmol/L (136-145); Total Protein,Serum 6.3 g/dl (6.3-8.2); Triglycerides 97 mg/dl (30-150)
--- OUTSIDE RECORDS SUMMARY | 2025-07-12 08:51 | XMS_ITS | Encounter Summary ---
Author Organization [facility] ([place], [place], [place], [place]) Address [address] [place] [address] Care Team Providers Care Repairer Wood Furniture Name Role Phone Jay Howell MD Primary Care Provider [phone] Encounter Details Date Type Department Care Team (Late st Contact Info) Description 02/13/2021 Transcribed Document [facility] [place] [facility]ly [facility] [place] [address] ProviderJessie MD [address], [place] [id number] Social History Tobacco Use Types Packs/Day Years Used Date Smoking Tobacco: Never Assessed Comments Unknown Sex and Gender Information Value Date Recorded Sex Assigned at Not on file Legal Sex Female 7:30 PM CDT Gender Identity Not on file Sexual Orientation Not on file documented as of this encounter Miscellaneous Notes * Cerner Conversion Note - Jessie Yuen MD - 02/13/2021 12:18 PM CDT Patient: SKYLER MONTOYA Age: 80 Years Sex: Female : 1940 *Operation Colonoscopy, Esophagogastroduodenoscopy, Esophageal Biopsy, Gastric Biopsy, Colon Biopsy, Colon Polypectomy, Anesthesia Type TONY SAMANO MD-ANS (Anesthesiologist of Record) TONY SAMANO MD-ANS (Anesthesiologist of Record) TONY SAMANO MD-ANS (Anesthesiologist of Record) TONY SAMANO MD-ANS (Anesthesiologist of Record) TONY SAMANO MD-ANS (Anesthesiologist of Record) TONY SAMANO MD-ANS (Anesthesiologist of Record) Indication for Surgery Dyspepsia. BE History of colon polyps Last one 4 years ago *Preoperative Diagnosis dyspepsia, change in bowel habits *Postoperative Diagnosis chronic gastritis, aleixs's esophagus, IBS, colon polyp *Surgeon(s) Primary Surgeon FABY GRIMM MD (Surgeon/Proceduralist, First) *Estimated Blood Loss Minimal. *Findings Short 2cm Alexis Tissue, biopsies taken. Moderate gastritis, antral biopsies taken. Normal duodenum. Normal cecum and terminal ileum. Random colon biopsies were taken. A 12mm pedunculated polyp at the ascending colon, snared with cautery and sent to pathology. Hemorrhoids. *Specimen(s) Antrum Esophagus Random colon Ascending polyp Complications None Xifaxan x 2 weeks. Follow up colonoscopy and EGD in 3 years. Date of Service Date/Time of Service SN - Proc - Start Time: 02/13/21 11:50:00 (02/13/21 12:00:33) Electronically signed by Sivan [facility] Conversion Elevator Attendant Cerner at 02/04/2023 2:14 PM CDT documented in this encounter Plan of Treatment Not on file documented as of this encounter Visit Diagnoses Not on filedocumented in this encounter Care Teams Repairer Wood Furniture Relationship Specialty Start Date End Date Jay Howell MD [address] [place] [phone] PCP - General Emergency Medicine 11/12/23 documented as of this encounter
--- OUTSIDE RECORDS SUMMARY | 2025-07-12 08:51 | XMS_ITS | Encounter Summary ---
Author Organization [facility] ([place], [place], [place], [place]) Address [address] [place] [address] Care Team Providers Care Edging Machine Operator Name Role Phone Jay Howell MD Primary Care Provider [phone] Encounter Details Date Type Department Care Team (Late st Contact Info) Description 06/14/2020 Transcribed Document [facility] Family Medicine [address] [place] [address] ProviderJessie MD [address] [place] [address] Social History Tobacco Use Types Packs/Day Years Used Date Smoking Tobacco: Never Assessed Comments Unknown Sex and Gender Information Value Date Recorded Sex Assigned at Not on file Legal Sex Female 7:30 PM CDT Gender Identity Not on file Sexual Orientation Not on file documented as of this encounter Miscellaneous Notes * Cerner Conversion Note - Jessie Yuen MD - 06/14/2020 2:41 PM CDT [facility] [place] [address] SKYLER MONTOYA :1940 Visit Time:06/13/2020 Your Visit Summary Your Care Team Admitting Physician - MARIA ELENA DAVALOS [facility] Attending Physician - MARIA ELENA DAVALOS MD-[facility] Primary Care Physician - TARA CHEN (REF), -MED Referring Physician - SURENDRA MELLO MD Your Diagnosis Chest pain Chest pain, Chest pain, unspecified, Chest pain, unspecified Hypertensive urgency Discharge Vitals Temperature 36.7 ??C Heart Rate (Monitored) 75 Blood Pressure 136/61 What to do next Instructions From Your Care Team STOP the following medications: STOP Hydralazine 25 mg tablets --- Dose has been changed and new RX provided. Diet after Discharge: Heart healthy diet, _, _ Fluid Restriction after Discharge: _ Activity after Discharge: As tolerated, _, _ Lifting Restrictions: _ Weight Bearing: _ Bedrest: _ Driving after Discharge: _ May Return to Work/School: Showering/Bathing: _, _ Notify Provider of: Wound/Incision Care after Discharge: _, _ Medical Equipment for Home Use: Home Health Services: Community Services: Follow-Up Appointments Follow Up with SHASTA ASENCIO When Within 1 week Comments For hospital follow up and possible event monitor Your INR today was 1.6 you need an appointment on TuesdayJune 16 to get this rechecked and adjusted Where: [address] [place] [address]- Business (1) Follow Up with TARA CHEN (REF), -MED When Within 2 to 3 days Where: [address] [place] [address]- Medications What How Much When Instructions Next Dose atorvastatin (atorvastatin 80 mg oral tablet) 1 Tablet(s) Oral At Bedtime Duration: 30 Day(s) Printed Prescription carvedilol (carvedilol 6.25 mg oral tablet) 1 Tablet(s) Oral Three Times A Day Duration: 30 Day(s) NEW DOSE Printed Prescription dorzolamide ophthalmic (dorzolamide 2% ophthalmic solution) 1 Drop(s) Eyes Both Two Times A Day hydrALAZINE (hydrALAZINE 10 mg oral tablet) 1 Tablet(s) Oral Two Times A Day Duration: 30 Day(s) NEW DOSE Printed Prescription ALPRAZolam (Xanax 0.5 mg oral tablet) 1 Tablet(s) Oral At Bedtime as needed for for anxiety/sleep amLODIPine (Norvasc 10 mg oral tablet) 1 Tablet(s) Oral Every Day aspirin (aspirin 81 mg oral tablet) 1 Tablet(s) Oral Every Day brimonidine-timolol ophthalmic (Combigan 0.2%-0.5% ophthalmic solution) 1 Drop(s) Eye Right Two Times A Day difluprednate ophthalmic (Durezol 0.05% ophthalmic emulsion) 1 Drop(s) Eye Right Four Times A Day losartan (losartan 100 mg oral tablet) 1 Tablet(s) Oral Every Day metFORMIN (metFORMIN 500 mg oral tablet, extended release) 1 Tablet(s) Oral Twice a Day With Meals multivitamin (Multiple Vitamins oral tablet) 1 Tablet(s) Oral Every Day omeprazole (omeprazole 40 mg oral delayed release capsule) 1 Capsule(s) Oral Every Day ranolazine (Ranexa 500 mg oral tablet, extended release) 2 Tablet(s) Oral Two Times A Day warfarin (Coumadin 2 mg oral tablet) 1 Tablet(s) Oral Tuesday, , Tuesday, Tuesday, Tuesday warfarin (Coumadin 2 mg oral tablet) 1.5 Tablet(s) Oral Tuesday, Tuesday Take your medications faithfully. Do NOT skip [...] cramping, rapid heartbeat, difficulty sleeping, and nervousness. Please dispose of unused and medications per your retail pharmacy guidance. Allergies Macrodantin morphine (rash, rash) nitrofurantoin (blisters, blisters) Immunizations This Visit No Immunizations Found Education Materials Hypertension, Adult High blood pressure (hypertension) is when the force of blood pumping through the arteries is too strong. The arteries are the blood vessels that carry blood from the heart throughout the body. Hypertension forces the heart to work harder to pump blood and may cause arteries to become narrow or stiff. Untreated or uncontrolled hypertension can cause a heart attack, heart failure, a stroke, kidney disease, and other problems. A blood pressure reading consists of a higher number over a lower number. Ideally, your blood pressure should be below 120/80. The first ( top ) number is called the systolic pressure. It is a measure of the pressure in your arteries as your heart beats. The second ( bottom ) number is called the diastolic pressure. It is a measure of the pressure in your arteries as the heart relaxes. What are the causes? The exact cause of this condition is not known. There are some conditions that result in or are related to high blood pressure. What increases the risk? Some risk factors for high blood pressure are under your control. The following factors may make you more likely to develop this condition: ??? Smoking. ??? Having type 2 diabetes mellitus, high cholesterol, or both. ??? Not getting enough exercise or physical activity. ??? Being overweight. ??? Having too much fat, sugar, calories, or salt (sodium) in your diet. ??? Drinking too much alcohol. Some risk factors for high blood pressure may be difficult or impossible to change. Some of these factors include: ??? Having chronic kidney disease. ??? Having a family history of high blood pressure. ??? Age. Risk increases with age. ??? Race. You may be at higher risk if you are . ??? Gender. Men are at higher risk than women before age 45. After age 65, women are at higher risk than men. ??? Having obstructive sleep apnea. ??? Stress. What are the signs or symptoms? High blood pressure may not cause symptoms. Very high blood pressure (hypertensive crisis) may cause: ??? Headache. ??? Anxiety. ??? Shortness of breath. ??? Nosebleed. ??? Nausea and vomiting. ??? Vision changes. ??? Severe chest pain. ??? Seizures. How is this diagnosed? This condition is diagnosed by measuring your blood pressure while you are seated, with your arm resting on a flat surface, your legs uncrossed, and your feet flat on the floor. The cuff of the blood pressure monitor will be placed directly against the skin of your upper arm at the level of your heart. It should be measured at least twice using the same arm. Certain conditions can cause a difference in blood pressure between your right and left arms. Certain factors can cause blood pressure readings to be lower or higher than normal for a short period of time: ??? When your blood pressure is higher when you are in a health care provider's office than when you are at home, this is called white coat hypertension. Most people with this condition do not need medicines. ??? When your blood pressure is higher at home than when you are in a health care provider's office, this is called masked hypertension. Most people with this condition may need medicines to control blood pressure. If you have a high blood pressure reading during one visit or you have normal blood pressure with other risk factors, you may be asked to: ??? Return on a different day to have your blood pressure checked again. ??? Monitor your blood pressure at home for 1 week or longer. If you are diagnosed with hypertension, you may have other blood or imaging tests to help your health care provider understand your overall risk for other conditions. How is this treated? This condition is treated by making healthy lifestyle changes, such as eating healthy foods, exercising more, and reducing your alcohol intake. Your health care provider may prescribe medicine if lifestyle changes are not enough to get your blood pressure under control, and if: ??? Your systolic blood pressure is above 130. ??? Your diastolic blood pressure is above 80. Your personal target blood pressure may vary depending on your medical conditions, your age, and other factors. Follow these instructions at home: Eating and drinking ??? Eat a diet that is high in fiber and potassium, and low in sodium, added sugar, and fat. An example eating plan is called the DASH (Dietary Approaches to Stop Hypertension) diet. To eat this way: ? Eat plenty of fresh fruits and vegetables. Try to fill one half of your plate at each meal with fruits and vegetables. ? Eat whole grains, such as whole-wheat pasta, brown rice, or whole-grain bread. Fill about one fourth of your plate with whole grains. ? Eat or drink low-fat dairy products, such as skim milk or low-fat yogurt. ? Avoid fatty cuts of meat, processed or cured meats, and poultry with skin. Fill about one fourth of your plate with lean proteins, such as fish, chicken without skin, beans, eggs, or tofu. ? Avoid pre-made and processed foods. These tend to be higher in sodium, added sugar, and fat. ??? Reduce your daily sodium intake. Most people with hypertension should eat less than 1,500 mg of sodium a day. ??? Do not drink alcohol if: ? Your health care provider tells you not to drink. ? You are , may be , or are planning to become . ??? If you drink alcohol: ? Limit how much you use to: ? 0???1 drink a day for women. ? 0???2 drinks a day for men. ? Be aware of how much alcohol is in your drink. In the [place] one drink equals one 12 oz bottle of beer (355 mL), one 5 oz glass of wine (148 mL), or one 1?? oz glass of hard liquor (44 mL). Lifestyle ??? Work with your health care provider to maintain a healthy body weight or to lose weight. Ask what an ideal weight is for you. ??? Get at least 30 minutes of exercise most days of the week. Activities may include walking, swimming, or biking. ??? Include exercise to strengthen your muscles (resistance exercise), such as Pilates or lifting weights, as part of your weekly exercise routine. Try to do these types of exercises for 30 minutes at least 3 days a week. ??? Do not use any products that contain nicotine or tobacco, such as cigarettes, e-cigarettes, and chewing tobacco. If you need help quitting, ask your health care provider. ??? Monitor your blood pressure at home as told by your health care provider. ??? Keep all follow-up visits as told by your health care provider. This is important. Medicines ??? Take atui-pka-xqghnqv and prescription medicines only as told by your health care provider. Follow directions carefully. Blood pressure medicines must be taken as prescribed. ??? Do not skip doses of blood pressure medicine. Doing this puts you at risk for problems and can make the medicine less effective. ??? Ask your health care provider about side effects or reactions to medicines that you should watch for. Contact a health care provider if you: ??? Think you are having a reaction to a medicine you are taking. ??? Have headaches that keep coming back (recurring). ??? Feel dizzy. ??? Have swelling in your ankles. ??? Have trouble with your vision. Get help right away if you: ??? Develop a severe headache or confusion. ??? Have unusual weakness or numbness. ??? Feel faint. ??? Have severe pain in your chest or abdomen. ??? Vomit repeatedly. ??? Have trouble breathing. Summary ??? Hypertension is when the force of blood pumping through your arteries is too strong. If this condition is not controlled, it may put you at risk for serious complications. ??? Your personal target blood pressure may vary depending on your medical conditions, your age, and other factors. For most people, a normal blood pressure is less than 120/80. ??? Hypertension is treated with lifestyle changes, medicines, or a combination of both. Lifestyle changes include losing weight, eating a healthy, low-sodium diet, exercising more, and limiting alcohol. This information is not intended to replace advice given to you by your health care provider. Make sure you discuss any questions you have with your health care provider. Document Released: 10/03/2006 Document Revised: 06/13/2019 Document Reviewed: 06/13/2019 [facility] Patient Education ?? 2020 [facility] Emergency Awareness and Preventative Care STROKE is an EMERGENCY Every Minute Counts Act FAST and Check for these signs: FACE Does the face look uneven? ARM Does one arm drift down? SPEECH Does their speech sound strange? TIME Call at any sign of stroke Stroke Risk Factors Atrial Fibrillation (irregular heartbeat) Diabetes Family history of stroke Heart Disease Heavy alcohol use High Blood Pressure High Cholesterol Physical inactivity and obesity Smoking Cigarette Smoking The facts are clear, cigarette smoking will shorten your life. Smoking can cause many illnesses along the way. As a healthcare provider, we recommend that you stop smoking. Assistance with quitting is available by contacting 1-891-THEM-NOW. This is a free resource providing counseling, support, and referral. Or you may contact your personal physician. National Suicide Prevention Lifeline: The National Suicide Prevention Lifeline is a national network of local crisis centers that provides free and confidential emotional support to people in suicidal crisis or emotional distress 24 hours a day, 7 days a week. Don't Wait! Stop a Heart Attack Before it Starts What is a heart attack? A heart attack is damage or to a part of the heart from severely decreased or lack of blood flow to the heart. Over time, arteries can become narrow from the buildup of fat and cholesterol, which is called plaque. The plaque can rupture causing a blood clot to form. When the blood clot forms, the artery can become severely narrowed or completely blocked, causing a heart attack. Heart attack is the leading cause of in the [place]. 85% of muscle damage occurs within the first 2 hours. Delay in the recognition of heart attack symptoms increases the chances of . Know the early symptoms of a heart attack: Nausea Feeling of fullness in chest Jaw Pain Pain that travels down one or both arms Fatigue/being tired Anxiety Back Pain Chest pressure, squeezing, or discomfort Shortness of breath Sweating, or a cold sweat Feeling of impending doom There are unusual signs of a heart attack, too! Women, the elderly, and diabetics may present with atypical symptoms: Fainting/dizziness Weakness Confusion Risk Factors for a Heart Attack Some heart disease risk factors, such as age and family history, cannot be changed. Others, like smoking and lack of exercise, can be changed. Smoking High Cholesterol High Blood Pressure Family History Obesity Age Gender (Males are at higher risk) Lack of Exercise Diabetes Diet Stress Excessive Alcohol Intake If you or someone you know is experiencing the signs and symptoms of a heart attack, DON???T DELAY. Call immediately and seek help. If someone collapses, perform CPR! Do not attempt to drive if you are having symptoms of heart attack. Hands-Only CPR Why Hands-Only CPR? Hands-Only CPR has been shown to be as effective as conventional CPR for cardiac arrests that occur outside of a hospital. Survival depends on immediately receiving CPR from someone nearby. How do you perform Hands-Only CPR? There are two easy steps: Call if you see a teen or adult collapse Push hard and fast in the center of the chest at a beat of 100 beats per minute. Save a life! 4 WAYS TO GET AHEAD OF SEPSIS SEPSIS is a MEDICAL EMERGENCY. Time matters! Infections put you and your family at risk for a life-threatening condition called sepsis. Sepsis is the body's extreme response to an infection. It is life-threatening, and without timely treatment, sepsis can rapidly lead to tissue damage, organ failure, and . Sepsis happens when an infection you already have-in your skin, lungs, urinary tract or somewhere else-triggers a chain reaction throughout your body. 1 [...] sepsis or if you have an infection that is not getting better or is getting worse. To learn more about sepsis and how to prevent infections, visit www.cdc.gov/sepsis. Test Results Laboratory or Other Results This Visit (last charted value for your 06/13/2020 visit) Hematology 06/14/2020 5:28 AM WBC: 5.2 K/uL -- Normal range between ( 4.5 and 10.5 ) RBC: 3.90 Million/uL -- Normal range between ( 3.93 and 5.22 ) Hct: 35.2 % -- Normal range between ( 34.1 and 44.9 ) Hgb: 12.0 g/dL -- Normal range between ( 11.2 and 15.7 ) Platelet Count: 177 K/uL -- Normal range between ( 163 and 369 ) MCH: 30.8 pg -- Normal range between ( 25.6 and 32.2 ) MCHC: 34.1 Gram/dL -- Normal range between ( 32.2 and 36.5 ) MCV: 90.3 fL -- Normal range between ( 79.0 and 94.8 ) Slide Review: No RDW: 13.8 % -- Normal range between ( 11.7 and 14.9 ) MPV: 9.7 fL -- Normal range between ( 9.4 and 12.4 ) 06/12/2020 10:03 PM Eos %: 2.1 % -- Normal range between ( 0.0 and 7.0 ) [place] #: 0.61 K/uL -- Normal range between ( 0.16 and 1.00 ) Eos #: 0.12 x10(3)/uL -- Normal range between ( 0.00 and 0.80 ) [place] %: 10.6 % -- Normal range between ( 3.0 and 9.0 ) Baso %: 0.5 % -- Normal range between ( 0.0 and 1.5 ) Baso #: 0.03 x10(3)/uL -- Normal range between ( 0.00 and 0.20 ) Neut %: 51.5 % -- Normal range between ( 34.0 and 71.0 ) Neut #: 2.96 K/uL -- Normal range between ( 1.56 and 6.13 ) Lymph %: 34.6 % -- Normal range between ( 19.3 and 53.1 ) Lymph #: 1.99 x10(3)/uL -- Normal range between ( 1.00 and 3.90 ) IG#: 0.04 x10(3)/uL -- Normal range between ( 0.00 and 0.05 ) IG%: 0.70 % -- Normal range between ( 0.00 and 0.60 ) General Chemistry 06/14/2020 11:50 AM Glucose POC2: 236 mg/dL -- Normal range between ( 70 and 110 ) Device Comment 1: Device Comment 1 06/14/2020 5:28 AM Creatinine Level: 0.60 mg/dL -- Normal range between ( 0.55 and 1.02 ) Sodium Level: 136 mmol/L -- Normal range between ( 136 and 146 ) Potassium Level: 3.6 mmol/L -- Normal range between ( 3.5 and 5.1 ) Chloride Level: 105 mmol/L -- Normal range between ( 102 and 112 ) Carbon Dioxide Level: 24 mmol/L -- Normal range between ( 21 and 32 ) Anion Gap: 11 -- Normal range between ( 9 and 20 ) Bun/Creatinine: 11.7 -- Normal range between ( 8.0 and 20.0 ) Calcium Level: 8.9 mg/dL -- Normal range between ( 8.4 and 10.1 ) eGFR : >60 mL/min/1.73m2 eGFR NonAfrican: >60 mL/min/1.73m2 Glucose Level: 114 mg/dL -- Normal range between ( 74 and 106 ) Blood Urea Nitrogen: 7 mg/dL -- Normal range between ( 7 and 22 ) Phosphorus: 3.1 mg/dL -- Normal range between ( 2.5 and 4.9 ) Albumin Level: 3.6 Gram/dL -- Normal range between ( 3.4 and 5.0 ) 06/13/2020 4:40 AM Magnesium Level: 1.3 mg/dL -- Normal range between ( 1.5 and 2.4 ) 06/12/2020 10:03 PM Bilirubin Total: 0.7 mg/dL -- Normal range between ( 0.2 and 1.2 ) A/G Ratio: 0.8 -- Normal range between ( 1.1 and 2.5 ) ALT: 34 Units/Liter -- Normal range between ( 13 and 56 ) AST: 46 Units/Liter -- Normal range between ( 5 and 37 ) Globulin: 4.5 Gram/dL -- Normal range between ( 1.5 and 4.5 ) Alk Phos: 65 Units/Liter -- Normal range between ( 27 and 136 ) Protein Total: 8.3 Gram/dL -- Normal range between ( 6.4 and 8.2 ) Lipase Level: 130 Units/Liter -- Normal range between ( 73 and 393 ) Cardiac Specific Markers 06/13/2020 4:40 AM Troponin I Ultra: <0.015 ng/mL -- Normal range between ( 0.015 and 0.045 ) Coagulation 06/14/2020 5:28 AM INR: 1.6 -- Normal range between ( 0.9 and 1.1 ) PT: 17.1 Second(s) -- Normal range between ( 9.6 and 12.0 ) 06/12/2020 10:03 PM D Dimer Quant: see comment mg/L FEU -- Normal range between ( 0.00 and 0.58 ) Endocrinology 06/14/2020 5:28 AM TSH: 1.700 mcInt Units/mL -- Normal range between ( 0.358 and 3.740 ) Computed Tomography 06/13/2020 9:[address] Head WO: CT Head WO Diagnostic Radiology 06/12/2020 9:58 PM CR Chest 1 Vw Portable: CR Chest 1 Vw Portable Vascular Ultrasound 06/13/2020 12:29 PM VL Carotid Duplex BILAT: VL Carotid Duplex BILAT 06/13/2020 11:28 AM VL Renal Duplex BILAT: VL Renal Duplex BILAT Patient Name:MONTOYA, SKYLER D I have received and understand this information and was given the opportunity to ask questions. Patient/Steel Fabricator Name: Patient/Steel Fabricator Signature: Relationship to Patient: Clinician/Hospital Steel Fabricator Signature: Date: documented in this encounter Plan of Treatment Not on file documented as of this encounter Visit Diagnoses Not on filedocumented in this encounter Care Teams Edging Machine Operator Relationship Specialty Start Date End Date Jay Howell MD [address] [place] [phone] PCP - General Emergency Medicine 11/12/23 documented as of this encounter
--- OUTSIDE RECORDS SUMMARY | 2025-07-12 08:51 | XMS_ITS | Encounter Summary ---
Author Organization [employer] ([place], [place], [place], [place]) Address [address] [place] [address] Care Team Providers Care Toy Department Manager Name Role Phone Jay Howell MD Primary Care Provider [phone] Encounter Details Date Type Department Care Team (Late st Contact Info) Description 08/23/2020 Transcribed Document [facility] [place] Family Medicine [address] [place] [address] ProviderJessie MD [address] [place] [address] Social History Tobacco Use Types Packs/Day Years Used Date Smoking Tobacco: Never Assessed Comments Unknown Sex and Gender Information Value Date Recorded Sex Assigned at Not on file Legal Sex Female 7:30 PM CDT Gender Identity Not on file Sexual Orientation Not on file documented as of this encounter Miscellaneous Notes * Cerner Conversion Note - Jessie Yuen MD - 08/23/2020 1:35 AM [facility] Discharge Entered On: 08/23/2020 2:08 EST Performed On: 08/23/2020 1:35 EST by Oumou Augustine RN Discharge Process Patient Disposition : Discharge Personal Belongings With Patient : Yes Patient Education Completed : Yes Teaching Evaluation : Verbalizes understanding IV Discontinued : Yes Nursing Documentation Completed : Yes Oumou Augustine RN - 08/23/2020 2:07 EST ED Discharge Discharge To : Home without planned follow-up Mode Of Departure : Private vehicle Accompanied By : Significant other Discharge Instructions Reviewed With, Opportunity For Questions Given : Patient, Significant other Oumou Augustine RN - 08/23/2020 2:07 EST Electronically signed by Sivan, [facility] Conversion Rn Camp Cerner at 02/04/2023 2:21 PM CDT documented in this encounter Plan of Treatment Not on file documented as of this encounter Visit Diagnoses Not on filedocumented in this encounter Care Teams Toy Department Manager Relationship Specialty Start Date End Date Jay Howell MD [address] [place] [phone] PCP - General Emergency Medicine 11/12/23 documented as of this encounter
--- OUTSIDE RECORDS SUMMARY | 2025-07-12 08:51 | XMS_ITS | Encounter Summary ---
Author Organization [employer] ([place], [place], [place], [place]) Address [address] [place] [address] Care Team Providers Care Resource Forester Name Role Phone Jay Howell MD Primary Care Provider [phone] Encounter Details Date Type Department Care Team (Late st Contact Info) Description 03/03/2021 Transcribed Document [facility] [place] [address] [place] [address] ProviderJessie MD [address] [place], [place] [id number] Social History Tobacco Use Types Packs/Day Years Used Date Smoking Tobacco: Never Assessed Comments Unknown Sex and Gender Information Value Date Recorded Sex Assigned at Not on file Legal Sex Female 7:30 PM CDT Gender Identity Not on file Sexual Orientation Not on file documented as of this encounter Miscellaneous Notes * Cerner Conversion Note - Historical ProviderMD - 03/03/2021 3:59 PM CDT Broset Violence Assessment Entered On: 03/03/2021 16:25 EDT Performed On: 03/03/2021 16:24 EDT by Marek Sanford Rn Broset Violence Assessment Broset Violence Checklist of Symptoms : None Broset Violence Symptoms Subtotal : 0 Broset Violence Symptoms Indicator : Low risk (0) Broset Interventions : [place] precautions for safety used Marek Sanford Rn - 03/03/2021 16:24 EDT Electronically signed by Sivan [facility] Conversion Sponge Fisherman Cerner at 02/04/2023 2:12 PM CDT documented in this encounter Plan of Treatment Not on file documented as of this encounter Visit Diagnoses Not on filedocumented in this encounter Care Teams Resource Forester Relationship Specialty Start Date End Date Jay Howell MD [address] [place] [phone] PCP - General Emergency Medicine 11/12/23 documented as of this encounter
--- OUTSIDE RECORDS SUMMARY | 2025-07-12 08:51 | XMS_ITS | Encounter Summary ---
Author Organization [employer] ([place], [place], [place], [place]) Address [address] [place] [address] Care Team Providers Care Supervisor Sleeping Bag Department Name Role Phone Jay Howell MD Primary Care Provider [phone] Encounter Details Date Type Department Care Team (Late st Contact Info) Description 06/14/2020 Transcribed Document [facility] [place] Family Medicine [address] [place] [address] ProviderJessie MD [address] [place] [address] Social History Tobacco Use Types Packs/Day Years Used Date Smoking Tobacco: Never Assessed Comments Unknown Sex and Gender Information Value Date Recorded Sex Assigned at Not on file Legal Sex Female 7:30 PM CDT Gender Identity Not on file Sexual Orientation Not on file documented as of this encounter Miscellaneous Notes * Cerner Conversion Note - Historical ProviderMD - 06/14/2020 2:15 PM CDT Stroke/Warfarin Instructions Entered On: 06/14/2020 14:15 EDT Performed On: 06/14/2020 14:15 EDT by JOAO NASSAR RN Stroke/Warfarin Instructions Stroke/TIA Discharge Ins : N/A Warfarin Discharge Ins : N/A JOAO NASSAR RN - 06/14/2020 14:15 EDT Electronically signed by Abel Finnegan Conversion Supervisor Drilling And Shooting Cerner at 02/04/2023 2:17 PM CDT documented in this encounter Plan of Treatment Not on file documented as of this encounter Visit Diagnoses Not on filedocumented in this encounter Care Teams Supervisor Sleeping Bag Department Relationship Specialty Start Date End Date Jay Howell MD [address] [place] [phone] PCP - General Emergency Medicine 11/12/23 documented as of this encounter
--- OUTSIDE RECORDS SUMMARY | 2025-07-12 08:51 | XMS_ITS | Encounter Summary ---
Author Organization [employer] ([place], [place], [place], [place]) Address [address] [place] [address] Care Team Providers Care Digital Measurement Advisor Name Role Phone Jay Howell MD Primary Care Provider [phone] Encounter Details Date Type Department Care Team (Late st Contact Info) Description 10/13/2020 Transcribed Document [facility] [place] [address] [place] [address] ProviderJessie MD [address] [place] [address] Social History Tobacco Use Types Packs/Day Years Used Date Smoking Tobacco: Never Assessed Comments Unknown Sex and Gender Information Value Date Recorded Sex Assigned at Not on file Legal Sex Female 7:30 PM CDT Gender Identity Not on file Sexual Orientation Not on file documented as of this encounter Miscellaneous Notes * Cerner Conversion Note - Historical MD Alpa - 10/13/2020 6:59 PM HEALTH CARE TECHNICIAN Patient: SKYLER MONTOYA Age: 79 Years Sex: Female : 1940 Subjective Patient presents for follow up for wound care. Has been changing dressing at home. Review of Systems Denies N/F/V/C/CP/SOB Objective Physical Exam DERM: Wound located anterior left tibia has completely healed with local hyperkeratosis. There is no active drainage visualized, no malodor. No additional lesions, lacerations or ulcerations identified. Skin is thinned and atrophic in appearance with decreased hair growth noted to digits. VASC: DP pulses palpable bilateral, PT pulses palpable bilateral. Foot feels warm to cool. No edema noted bilateral. No pain with posterior calf squeeze. NEURO: Intact LTPS bilateral plantar foot/toes using SWMF. No increased pain. MSK: Muscle strength 5/5 to all major muscle groups evaluated in the lower extremity. No pain with palpation. Assessment/Plan I73.9 Peripheral vascular disease - Patient seen and evaluated in the wound care center. - Discussed treatment and etiology of wound. Explained the need to optimize blood flow, effectively offload the area, perform at regular intervals in office debridement and regular dressing changes. - Wound has healed - continue bandaid for protection. Applied Allevyn border today - Patient may resume regular showering, no submerging in bathtub or pool for next 2-3 months - Patient is s/p vascular intervention, palpable pulses Patient has healed, happy with treatment results RTC prn Electronically signed by Sivan [facility] Conversion Hypoid Gear Tester Cerner at 02/04/2023 2:05 PM CDT documented in this encounter Plan of Treatment Not on file documented as of this encounter Visit Diagnoses Not on filedocumented in this encounter Care Teams Digital Measurement Advisor Relationship Specialty Start Date End Date Jay Howell MD [address] [place] [phone] PCP - General Emergency Medicine 11/12/23 documented as of this encounter
--- OUTSIDE RECORDS SUMMARY | 2025-07-12 08:51 | XMS_ITS | Encounter Summary ---
Author Organization [employer] ([place], [place], [place], [place]) Address [address] [place] [address] Care Team Providers Care Well Logger Name Role Phone Jay Howell MD Primary Care Provider [phone] Encounter Details Date Type Department Care Team (Late st Contact Info) Description 06/14/2020 Transcribed Document [facility] [place] Family Medicine [address] [place] [id number] ProviderJessie MD [address] [place] [address] Social History Tobacco Use Types Packs/Day Years Used Date Smoking Tobacco: Never Assessed Comments Unknown Sex and Gender Information Value Date Recorded Sex Assigned at Not on file Legal Sex Female 7:30 PM CDT Gender Identity Not on file Sexual Orientation Not on file documented as of this encounter Miscellaneous Notes * Cerner Conversion Note - Jessie Yuen MD - 06/14/2020 8:53 AM CDT Final Discharge Planning Entered On: 06/14/2020 8:53 EDT Performed On: 06/14/2020 8:53 EDT by JENAE COREY CSW Final Discharge Planning Discharge Arrangements : Patient Post-Acute Information Patient Name: SKYLER MONTOYA Gender: Female : [birth year] Age: 79 Years No Post-Acute Placement(s) Listed No Post-Acute Service(s) Listed No [place] Referral(s) Listed Patient Offered Choice/Affiliations Explained : Yes Designation of Choice Signed : No Important Medicare Message Reviewed With : Patient Important Medicare Message Reviewed D/T : 06/13/2020 15:16 EDT Transportation Needs : Family/Friend Is Patient High/Moderate Readmission Risk? : Yes Physician Notified Patient is Ready for Discharge? : Yes Discharge To Care Management : Home/Residential/Long-Term or Self Care -01 JENAE COREY CSW - 06/14/2020 8:53 EDT Final Narrative Note Final Narrative Note : Pt declined services. JENAE COREY CSW - 06/14/2020 8:53 EDT Electronically signed by [facility] Conversion Can Dragger Cerner at 02/04/2023 2:06 PM CDT documented in this encounter Plan of Treatment Not on file documented as of this encounter Visit Diagnoses Not on filedocumented in this encounter Care Teams Well Logger Relationship Specialty Start Date End Date Jay Howell MD [address] [place] [phone] PCP - General Emergency Medicine 11/12/23 documented as of this encounter
--- OUTSIDE RECORDS SUMMARY | 2025-07-12 08:51 | XMS_ITS | Encounter Summary ---
Author Organization [employer] ([place], [place], [place], [place]) Address [address] [place] [address] Care Team Providers Care Air Turning Machine Feeder Name Role Phone Jay Howell MD Primary Care Provider [phone] Encounter Details Date Type Department Care Team (Late st Contact Info) Description 03/03/2021 Transcribed Document [facility] [place] [facility] [place] [address] ProviderJessie MD [address] [place] [address] Social History Tobacco Use Types Packs/Day Years Used Date Smoking Tobacco: Never Assessed Comments Unknown Sex and Gender Information Value Date Recorded Sex Assigned at Not on file Legal Sex Female 7:30 PM CDT Gender Identity Not on file Sexual Orientation Not on file documented as of this encounter Miscellaneous Notes * Cerner Conversion Note - Jessie ProviderMD - 03/03/2021 5:09 PM CDT [facility] [place] [address] SKYLER MONTOYA :1940 Visit Time:03/03/2021 Your Visit Summary Your Care Team Primary Provider: SPIKE IBRAHIM Secondary Provider: Your Diagnosis Acute right hip pain Hip pain-swelling Medical Information You may obtain a copy of your Emergency Department visit from Medical Records by calling the hospital phone number listed above and asking to be directed to the Medical Records Department. If you had special tests, such as EKG???s or X-rays, the interpretation of your tests given to you by the Emergency Department Physician is a preliminary report. Some fractures and illnesses fail to show up on preliminary tests. These will be reviewed again and we will call you if there are any new suggestions. If your symptoms continue notify your physician. After you leave, you should follow the instructions provided. What to do next Follow-Up Appointments Follow Up with KAVITHA YE When Within 2 to 3 days Comments Someone from office will call you with a follow-up appointment Where: [address] [place] [address] [facility] (1) Allergies Macrodantin morphine (rash, rash) Immunizations This Visit No Immunizations Found Medications What How Much When Instructions Next Dose acetaminophen-hydrocodone ([place] 7.5 mg-325 mg oral tablet) 1 Tablet(s) Oral Every 6 Hours as needed for for pain Pickup at [place] [id number] lidocaine topical (Lidoderm 5% topical film) 1 Patch(es) TransDermal Every Day Pickup at [place] [address] ALPRAZolam (Xanax 0.5 mg oral tablet) 1 Tablet(s) Oral At Bedtime as needed for for anxiety/sleep amLODIPine (Norvasc 10 mg oral tablet) 1 Tablet(s) Oral Every Day atorvastatin (atorvastatin 80 mg oral tablet) 1 Tablet(s) Oral At Bedtime carvedilol (carvedilol 6.25 mg oral tablet) 1 Tablet(s) Oral Three Times A Day clopidogrel (Plavix 75 mg oral tablet) 1 Tablet(s) Oral Every Day dorzolamide ophthalmic (dorzolamide 2% ophthalmic solution) 1 Drop(s) Eye Right Two Times A Day hydrALAZINE (hydrALAZINE 100 mg oral tablet) 1 Tablet(s) Oral Two Times A Day lactobacillus acidophilus (lactobacillus acidophilus oral tablet) 2 Tablet(s) Oral Every Day Duration: 28 Day(s) losartan (losartan 100 mg oral tablet) 1 [...] Oral Two Times A Day warfarin (Coumadin 3 mg oral tablet) 1 Tablet(s) Oral Every Day Duration: 5 Day(s) Pharmacy Information [facility]: [address] [place] [phone] The home medications listed are only as accurate as the information you provided. Please continue taking all of your medications prescribed by your Primary Care Provider unless specifically told to change or discontinue the medication. Please direct any questions regarding your home medications to your Primary Care Provider. Take your medications faithfully. Do NOT skip [...] Please dispose of unused and medications per pharmacy guidance. Test Results Laboratory or Other Results This Visit (last charted value for your 03/03/2021 visit) Diagnostic Radiology 03/03/2021 4:35 PM CR Hip Uni Comp Min 2 Vws RT: CR Hip Uni Comp Min 2 Vws RT Education Materials Hip Pain The hip is the joint between the upper legs and the lower pelvis. The bones, cartilage, tendons, and muscles of your hip joint support your body and allow you to move around. Hip pain can range from a minor ache to severe pain in one or both of your hips. The pain may be felt on the inside of the hip joint near the groin, or on the outside near the buttocks and upper thigh. You may also have swelling or stiffness in your hip area. Follow these instructions at home: Managing pain, stiffness, and swelling ??? If directed, put ice on the painful area. To do this: ? Put ice in a plastic bag. ? Place a towel between your skin and the bag. ? Leave the ice on for 20 minutes, 2???3 times a day. ??? If directed, apply heat to the affected area as often as told by your health care provider. Use the heat source that your health care provider recommends, such as a moist heat pack or a heating pad. ? Place a towel between your skin and the heat source. ? Leave the heat on for 20???30 minutes. ? Remove the heat if your skin turns bright red. This is especially important if you are unable to feel pain, heat, or cold. You may have a greater risk of getting burned. Activity ??? Do exercises as told by your health care provider. ??? Avoid activities that cause pain. General instructions ??? Take [id number] and prescription medicines only as told by your health care provider. ??? Keep a journal of your symptoms. Write down: ? How often you have hip pain. ? The location of your pain. ? What the pain feels like. ? What makes the pain worse. ??? Sleep with a pillow between your legs on your most comfortable side. ??? Keep all follow-up visits as told by your health care provider. This is important. Contact a health care provider if: ??? You cannot put weight on your leg. ??? Your pain or swelling continues or gets worse after one week. ??? It gets harder to walk. ??? You have a fever. Get help right away if: ??? You fall. ??? You have a sudden increase in pain and swelling in your hip. ??? Your hip is red or swollen or very tender to touch. Summary ??? Hip pain can range from a minor ache to severe pain in one or both of your hips. ??? The pain may be felt on the inside of the hip joint near the groin, or on the outside near the buttocks and upper thigh. ??? Avoid activities that cause pain. ??? Write down how often you have hip pain, the location of the pain, what makes it worse, and what it feels like. This information is not intended to replace advice given to you by your health care provider. Make sure you discuss any questions you have with your health care provider. Document Revised: 02/18/2020 Document Reviewed: 02/18/2020 [employer] Patient Education ?? 2020 [employer]. Emergency Awareness and Preventative Care STROKE is [...] Assistance with quitting is available by contacting 3-623-TYHV-NOW. This is a free resource providing counseling, [...] and how to prevent infections, visit www.cdc.gov/sepsis. The examination and treatment you have received in the Emergency Department has been done to provide an appropriate evaluation and stabilizing treatment on an emergency basis only. Given the limited resources, it is not meant to be a substitute for complete medical care. The follow-up doctor you named will receive a copy of your records and all test reports. IT IS IMPORTANT THAT YOU SCHEDULE A FOLLOW-UP APPOINTMENT AND ARE RE-EVALUATED. You should report any new complaints, symptoms, or remaining problems at that time. IT IS IMPOSSIBLE FOR THE EMERGENCY DEPARTMENT TO RECOGNIZE AND TREAT ALL ELEMENTS OF INJURY OR ILLNESS IN A SINGLE VISIT. If you have been referred to a specialist physician, it means that we believe you may have a condition that requires the expertise of a specialist. These physicians work in partnership with the hospital and have agreed to see referred patients in their office for further evaluation. KEEP IN MIND THAT THE SPECIALIST HAS HIS/HER OWN OFFICE POLICIES WHICH MAY REQUIRE PROPER INSURANCE OR PAYMENT UP FRONT BEFORE THE SPECIALIST WILL SEE YOU. It is your responsibility to call the specialist physician to make an appointment. We do not have the ability to refer patients to specialists/physicians that work with specific insurance companies. Please be advised that all financial charges or billing practices are determined by that practice, not the hospital. If your insurance company requires that you see a specialist from their approved list, it is your responsibility to contact your insurance company to make those arrangements. It is also your responsibility to follow any other requirements of your insurance company necessary to obtain coverage for claims submitted. We will bill your insurance; however, you are responsible today for any co-pay amounts. You will receive a separate bill for any services you may have received including: emergency, radiology, or pathology physicians. Patient Name:SKYLER MONTOYA I have received this information and was given the opportunity to ask questions. Patient/Product Marketing Analyst Name: Patient/Product Marketing Analyst Signature: Relationship to Patient: Clinician/Hospital Product Marketing Analyst Signature: Please Provide a Telephone Number Where You Can Be Reached: Is it Permissible To Leave a Message? Date: Electronically signed by Sivan [facility] Conversion Communications Department Chairperson Cerner at 02/04/2023 1:58 PM CDT documented in this encounter Plan of Treatment Not on file documented as of this encounter Visit Diagnoses Not on filedocumented in this encounter Care Teams Air Turning Machine Feeder Relationship Specialty Start Date End Date Jay Howell MD [address] [place] [phone] PCP - General Emergency Medicine 11/12/23 documented as of this encounter
--- OUTSIDE RECORDS SUMMARY | 2025-07-12 08:51 | XMS_ITS | Encounter Summary ---
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 Name Role Phone Jay Howell MD Primary Care Provider [phone] Encounter Details Date Type Department Care Team (Late st Contact Info) Description 02/13/2021 Transcribed Document [facility] [place] [facility] [address] [place] [id number] ProviderJessie MD [address] [place], [place] [address] Social History Tobacco Use Types Packs/Day Years Used Date Smoking Tobacco: Never Assessed Comments Unknown Sex and Gender Information Value Date Recorded Sex Assigned at Not on file Legal Sex Female 7:30 PM CDT Gender Identity Not on file Sexual Orientation Not on file documented as of this encounter Miscellaneous Notes * Cerner Conversion Note - Historical MD Alpa - 02/13/2021 12:19 PM CDT Patient Education Materials Follows: Irritable Bowel Syndrome, Adult Irritable bowel syndrome (IBS) is a group of symptoms that affects the organs responsible for digestion (gastrointestinal or GI tract). IBS is not one specific disease. To regulate how the GI tract works, the body sends signals back and forth between the intestines and the brain. If you have IBS, there may be a problem with these signals. As a result, the GI tract does not function normally. The intestines may become more sensitive and overreact to certain things. This may be especially true when you eat certain foods or when you are under stress. There are four types of IBS. These may be determined based on the consistency of your stool (feces): ??? IBS with diarrhea. ??? IBS with constipation. ??? Mixed IBS. ??? Unsubtyped IBS. It is important to know which type of IBS you have. Certain treatments are more likely to be helpful for certain types of IBS. What are the causes? The exact cause of IBS is not known. What increases the risk? You may have a higher risk for IBS if you: ??? Are female. ??? Are younger than 40. ??? Have a family history of IBS. ??? Have a mental health condition, such as depression, anxiety, or post-traumatic stress disorder. ??? Have had a bacterial infection of your GI tract. What are the signs or symptoms? Symptoms of IBS vary from person to person. The main symptom is abdominal pain or discomfort. Other symptoms usually include one or more of the following: ??? Diarrhea, constipation, or both. ??? Abdominal swelling or bloating. ??? Feeling full after eating a small or regular-sized meal. ??? Frequent gas. ??? Mucus in the stool. ??? A feeling of having more stool left after a bowel movement. Symptoms tend to come and go. They may be triggered by stress, mental health conditions, or certain foods. How is this diagnosed? This condition may be diagnosed based on a physical exam, your medical history, and your symptoms. You may have tests, such as: ??? Blood tests. ??? Stool test. ??? X-rays. ??? CT scan. ??? Colonoscopy. This is a procedure in which your GI tract is viewed with a long, thin, flexible tube. How is this treated? There is no cure for IBS, but treatment can help relieve symptoms. Treatment depends on the type of IBS you have, and may include: ??? Changes to your diet, such as: ? Avoiding foods that cause symptoms. ? Drinking more water. ? Following a low-FODMAP (fermentable oligosaccharides, disaccharides, monosaccharides, and polyols) diet for up to 6 weeks, or as told by your health care provider. FODMAPs are sugars that are hard for some people to digest. ? Eating more fiber. ? Eating medium-sized meals at the same times every day. ??? Medicines. These may include: ? Fiber supplements, if you have constipation. ? Medicine to control diarrhea (antidiarrheal medicines). ? Medicine to help control muscle tightening (spasms) in your GI tract (antispasmodic medicines). ? Medicines to help with mental health conditions, such as antidepressants or tranquilizers. ??? Talk therapy or counseling. ??? Working with a diet and presales senior specialist (dietitian) to help create a food plan that is right for you. ??? Managing your stress. Follow these instructions at home: Eating and drinking ??? Eat a healthy diet. ??? Eat medium-sized meals at about the same time every day. Do not eat large meals. ??? Gradually eat more fiber-rich foods. These include whole grains, fruits, and vegetables. This may be especially helpful if you have IBS with constipation. ??? Eat a diet low in FODMAPs. ??? Drink enough fluid to keep your urine pale yellow. ??? Keep a journal of foods that seem to trigger symptoms. ??? Avoid foods and drinks that: ? Contain added sugar. ? Make your symptoms worse. Dairy products, caffeinated drinks, and carbonated drinks can make symptoms worse for some people. General instructions ??? Take vriw-dps-mkiudyz and prescription medicines and supplements only as told by your health care provider. ??? Get enough exercise. Do at least 150 minutes of moderate-intensity exercise each week. ??? Manage your stress. Getting enough sleep and exercise can help you manage stress. ??? Keep all follow-up visits as told by your health care provider and therapist. This is important. Alcohol Use ??? Do not drink alcohol if: ? Your health care provider tells you not to drink. ? You are , may be , or are planning to become . ??? If you drink alcohol, limit how much you have: ? 0?1 drink a day for women. ? 0?2 drinks a day for men. ??? Be aware of how much alcohol is in your drink. In the [place] one drink equals one typical bottle of beer (12 oz), one-half glass of wine (5 oz), or one shot of hard liquor (1? oz). Contact a health care provider if you have: ??? Constant pain. ??? Weight loss. ??? Difficulty or pain when swallowing. ??? Diarrhea that gets worse. Get help right away if you have: ??? Severe abdominal pain. ??? Fever. ??? Diarrhea with symptoms of dehydration, such as dizziness or dry mouth. ??? Bright red blood in your stool. ??? Stool that is black and tarry. ??? Abdominal swelling. ??? Vomiting that does not stop. ??? Blood in your vomit. Summary ??? Irritable bowel syndrome (IBS) is not one specific disease. It is a group of symptoms that affects digestion. ??? Your intestines may become more sensitive and overreact to certain things. This may be especially true when you eat certain foods or when you are under stress. ??? There is no cure for IBS, but treatment can help relieve symptoms. This information is not intended to replace advice given to you by your health care provider. Make sure you discuss any questions you have with your health care provider. Document Revised: 09/26/2018 Document Reviewed: 09/26/2018 [employer] Patient Education ? 2020 [employer]. Segura's Esophagus Segura's esophagus occurs when the tissue that lines the esophagus changes or becomes damaged. The esophagus is the tube that carries food from the throat to the stomach. With Segura's esophagus, the cells that line the esophagus are replaced by cells that are similar to the lining of the intestines (intestinal metaplasia). Segura's esophagus itself may not cause any symptoms. However, many people who have Segura's esophagus also have gastroesophageal reflux disease (GERD), which may cause symptoms such as heartburn. Over time, a few people with this condition may develop cancer of the esophagus. Treatment may include medicines, procedures to destroy the abnormal cells, or surgery. What are the causes? The exact cause of this condition is not known. In some cases, the condition develops from damage to the lining of the esophagus caused by GERD. GERD occurs when stomach acids flow up from the stomach into the esophagus. Frequent symptoms of GERD may cause intestinal metaplasia or cause cell changes (dysplasia). What increases the risk? You are more likely to develop this condition if you: ??? Have GERD. ??? Are male. ??? Are . ??? Are obese. ??? Are older than 50. ??? Have a hiatal hernia. This is a condition in which part of your stomach bulges into your chest. ??? Smoke. What are the signs or symptoms? People with Segura's esophagus often have no symptoms. However, many people with this condition also have GERD. Symptoms of GERD may include: ??? Heartburn. ??? Difficulty swallowing. ??? Dry cough. How is this diagnosed? This condition may be diagnosed based on: ??? Results of an upper gastrointestinal endoscopy. For this exam, a thin, flexible tube with a light and a camera on the end (endoscope) is passed down your esophagus. Your health care provider can view the inside of your esophagus during this procedure. ??? Results of a biopsy. For this procedure, several tissue samples are removed (biopsy) from your esophagus. They are then checked for intestinal metaplasia or dysplasia. How is this treated? Treatment for this condition may include: ??? Medicines (proton pump inhibitors, or PPIs) to decrease or stop GERD. ??? Periodic endoscopic exams to make sure that cancer is not developing. ??? A procedure or surgery for dysplasia. This may include: ? Removal or destruction of abnormal cells. ? Removal of part of the esophagus (esophagectomy). Follow these instructions at home: Eating and drinking ??? Eat more fruits and vegetables. ??? Avoid fatty foods. ??? Eat small, frequent meals instead of large meals. ??? Avoid foods that cause heartburn. These foods include: ? Coffee and alcoholic drinks. ? Tomatoes and foods made with tomatoes. ? [place] or spicy foods. ? Chocolate and peppermint. ??? Do not drink alcohol. General instructions ??? Take raxt-lbr-hhrucja and prescription medicines only as told by your health care provider. ??? Do not use any products that contain nicotine or tobacco, such as cigarettes and e-cigarettes. If you need help quitting, ask your health care provider. ??? If you are being treated for GERD, make sure you take medicines and follow all instructions as told by your health care provider. ??? Keep all follow-up visits as told by your health care provider. This is important. Contact a health care provider if: ??? You have heartburn or GERD symptoms. ??? You have difficulty swallowing. Get help right away if: ??? You have chest pain. ??? You are unable to swallow. ??? You vomit blood or material that looks like coffee grounds. ??? Your stool (feces) is bright red or dark. Summary ??? Segura's esophagus occurs when the tissue that lines the esophagus changes or becomes damaged. ??? Segura's esophagus may be diagnosed with an upper gastrointestinal endoscopy and a biopsy. ??? Treatment may include medicines, procedures to remove abnormal cells, or surgery. ??? Follow your health care provider's instructions about what to eat and drink, what medicines to take, and when to call for help. This information is not intended to replace advice given to you by your health care provider. Make sure you discuss any questions you have with your health care provider. Document Revised: 01/29/2019 Document Reviewed: 01/29/2019 [employer] Patient Education ? 2020 [employer]. ESOPHAGOGASTRODUODENOSCOPY Care After Read the instructions outlined below and refer to this sheet over the next few days. These discharge instructions provide you with general information on caring for yourself after you leave the hospital. Your doctor may also give you specific instructions. While your treatment has been planned according to the most current medical practices available, unavoidable complications occasionally occur. If you have any problems or questions after discharge, call your doctor. HOME CARE INSTRUCTIONS: ACTIVITY: ?? You may resume your regular activity tomorrow, but move at a slower pace for the next 24 hours. ?? Take frequent rest periods for the next 24 hours. ?? Walking will help get rid of the air and reduce the bloated feeling in your belly (abdomen). ?? No driving for 24 hours because of the medication (sedation) used during the test. ?? You may shower. ?? Do not sign any important legal documents or operate any machinery for 24 hours (because of the sedation used during the test). NUTRITION: ?? Drink plenty of fluids. ?? You may resume your normal diet or as instructed by your doctor ?? Begin with a light meal and progress to your normal diet. Heavy or fried foods are harder to digest and may make you feel sick to your stomach (nauseated). ?? Avoid alcoholic beverages for 24 hours or as instructed. MEDICATIONS: ?? You may resume your normal medications unless your doctor tells you otherwise. WHAT TO EXPECT TODAY: ?? Some feelings of bloating in the abdomen. ?? Excessive burping today and passage of more gas than usual. ?? A sore throat can be normal. Use throat lozenges or gargle with warm salt water and drink plenty of fluids. FINDING OUT THE RESULTS OF YOUR TEST: ?? Not all test results are available during your visit. If you had biopsies or other tests done during your procedure, you can make an appointment with your doctor to get the results. Sometimes you may be instructed to call the doctor's office for your results. It is important for you to follow up on all of your test results. SEEK IMMEDIATE MEDICAL CARE IF: ?? You cannot eat or drink. ?? You have worsening throat or chest pain. ?? You have dizziness, lightheadedness, or you faint. ?? You have severe nausea or vomiting. ?? You have a fever greater than 101. ?? You have chills. ?? You have severe abdominal pain or discomfort that gets worse throughout the day. ?? You have black, tarry, or bloody stools. Monitored Anesthesia Care, Care After These instructions provide you with information about caring for yourself after your procedure. Your health care provider may also give you more specific instructions. Your treatment has been planned according to current medical practices, but problems sometimes occur. Call your health care provider if you have any problems or questions after your procedure. What can I expect after the procedure? After your procedure, you may: ??? Feel sleepy for several hours. ??? Feel clumsy and have poor balance for several hours. ??? Feel forgetful about what happened after the procedure. ??? Have poor judgment for several hours. ??? Feel nauseous or vomit. ??? Have a sore throat if you had a breathing tube during the procedure. Follow these instructions at home: For at least 24 hours after the procedure: ??? Have a responsible adult stay with you. It is important to have someone help care for you until you are awake and alert. ??? Rest as needed. ??? Do not: ? Participate in activities in which you could fall or become injured. ? Drive. ? Use heavy machinery. ? Drink alcohol. ? Take sleeping pills or medicines that cause drowsiness. ? Make important decisions or sign legal documents. ? Take care of children on your own. Eating and drinking ??? Follow the diet that is recommended by your health care provider. ??? If you vomit, drink water, juice, or soup when you can drink without vomiting. ??? Make sure you have little or no nausea before eating solid foods. General instructions ??? Take suwl-lhc-ocziayi and prescription medicines only as told by your health care provider. ??? If you have sleep apnea, surgery and certain medicines can increase your risk for breathing problems. Follow instructions from your health care provider about wearing your sleep device: ? Anytime you are sleeping, including during daytime naps. ? While taking prescription pain medicines, sleeping medicines, or medicines that make you drowsy. ??? If you smoke, do not smoke without supervision. ??? Keep all follow-up visits as told by your health care provider. This is important. Contact a health care provider if: ??? You keep feeling nauseous or you keep vomiting. ??? You feel light-headed. ??? You develop a rash. ??? You have a fever. Get help right away if: ??? You have trouble breathing. Summary ??? For several hours after your procedure, you may feel sleepy and have poor judgment. ??? Have a responsible adult stay with you for at least 24 hours or until you are awake and alert. This information is not intended to replace advice given to you by your health care provider. Make sure you discuss any questions you have with your health care provider. Document Revised: 01/01/2019 Document Reviewed: 01/23/2017 [employer] Patient Education ? 2020 [employer] Gastritis, Adult Gastritis is inflammation of the stomach. There are two kinds of gastritis: ??? Acute gastritis. This kind develops suddenly. ??? Chronic gastritis. This kind is much more common and lasts for a long time. Gastritis happens when the lining of the stomach becomes weak or gets damaged. Without treatment, gastritis can lead to stomach bleeding and ulcers. What are the causes? This condition may be caused by: ??? An infection. ??? Drinking too much alcohol. ??? Certain medicines. These include steroids, antibiotics, and some dnzc-bhc-kqdvwhl medicines, such as aspirin or ibuprofen. ??? Having too much acid in the stomach. ??? A disease of the intestines or stomach. ??? Stress. ??? An allergic reaction. ??? Crohn's disease. ??? Some cancer treatments (radiation). Sometimes the cause of this condition is not known. What are the signs or symptoms? Symptoms of this condition include: ??? Pain or a burning sensation in the upper abdomen. ??? Nausea. ??? Vomiting. ??? An uncomfortable feeling of fullness after eating. ??? Weight loss. ??? Bad breath. ??? Blood in your vomit or stools. In some cases, there are no symptoms. How is this diagnosed? This condition may be diagnosed with: ??? Your medical history and a description of your symptoms. ??? A physical exam. ??? Tests. These can include: ? Blood tests. ? Stool tests. ? A test in which a thin, flexible instrument with a light and a camera is passed down the esophagus and into the stomach (upper endoscopy). ? A test in which a sample of tissue is taken for testing (biopsy). How is this treated? This condition may be treated with medicines. The medicines that are used vary depending on the cause of the gastritis: ??? If the condition is caused by a bacterial infection, you may be given antibiotic medicines. ??? If the condition is caused by too much acid in the stomach, you may be given medicines called H2 blockers, proton pump inhibitors, or antacids. Treatment may also involve stopping the use of certain medicines, such as aspirin, ibuprofen, or other NSAIDs. Follow these instructions at home: Medicines ??? Take dlzb-mbv-ubkoieo and prescription medicines only as told by your health care provider. ??? If you were prescribed an antibiotic medicine, take it as told by your health care provider. Do not stop taking the antibiotic even if you start to feel better. Eating and drinking ??? Eat small, frequent meals instead of large meals. ??? Avoid foods and drinks that make your symptoms worse. ??? Drink enough fluid to keep your urine pale yellow. Alcohol use ??? Do not drink alcohol if: ? Your health care provider tells you not to drink. ? You are , may be , or are planning to become . ??? If you drink alcohol: ? Limit your use to: ? 0?1 drink a day for women. ? 0?2 drinks a day for men. ? Be aware of how much alcohol is in your drink. In the [place] one drink equals one 12 oz bottle of beer (355 mL), one 5 oz glass of wine (148 mL), or one 1? oz glass of hard liquor (44 mL). General instructions ??? Talk with your health care provider about ways to manage stress, such as getting regular exercise or practicing deep breathing, meditation, or yoga. ??? Do not use any products that contain nicotine or tobacco, such as cigarettes and e-cigarettes. If you need help quitting, ask your health care provider. ??? Keep all follow-up visits as told by your health care provider. This is important. Contact a health care provider if: ??? Your symptoms get worse. ??? Your symptoms return after treatment. Get help right away if: ??? You vomit blood or material that looks like coffee grounds. ??? You have black or dark red stools. ??? You are unable to keep fluids down. ??? Your abdominal pain gets worse. ??? You have a fever. ??? You do not feel better after one week. Summary ??? Gastritis is inflammation of the lining of the stomach that can occur suddenly (acute) or develop slowly over time (chronic). ??? This condition is diagnosed with a medical history, a physical exam, or tests. ??? This condition may be treated with medicines to treat infection or medicines to reduce the amount of acid in your stomach. ??? Follow your health care provider's instructions about taking medicines, making changes to your diet, and knowing when to call for help. This information is not intended to replace advice given to you by your health care provider. Make sure you discuss any questions you have with your health care provider. Document Revised: 02/20/2019 Document Reviewed: 02/20/2019 [employer] Patient Education ? 2020 [employer] Colonoscopy, Adult A colonoscopy is a procedure to look at the entire large intestine. This procedure is done using a long, thin, flexible tube that has a camera on the end. You may have a colonoscopy: ??? As a part of normal colorectal screening. ??? If you have certain symptoms, such as: ? A low number of red blood cells in your blood (anemia). ? Diarrhea that does not go away. ? Pain in your abdomen. ? Blood in your stool. A colonoscopy can help screen for and diagnose medical problems, including: ??? Tumors. ??? Extra tissue that grows where mucus forms (polyps). ??? Inflammation. ??? Areas of bleeding. Tell your health care provider about: ??? Any allergies you have. ??? All medicines you are taking, including vitamins, herbs, eye drops, creams, and nzda-axl-aoerekd medicines. ??? Any problems you or family members have had with anesthetic medicines. ??? Any blood disorders you have. ??? Any surgeries you have had. ??? Any medical conditions you have. ??? Any problems you have had with having bowel movements. ??? Whether you are or may be . What are the risks? Generally, this is a safe procedure. However, problems may occur, including: ??? Bleeding. ??? Damage to your intestine. ??? Allergic reactions to medicines given during the procedure. ??? Infection. This is rare. What happens before the procedure? Eating and drinking restrictions Follow instructions from your health care provider about eating or drinking restrictions, which may include: ??? A few days before the procedure: ? Follow a low-fiber diet. ? Avoid nuts, seeds, dried fruit, raw fruits, and vegetables. ??? 1?3 days before the procedure: ? Eat only gelatin dessert or ice pops. ? Drink only clear liquids, such as water, clear juice, clear broth or bouillon, black coffee or tea, or clear soft drinks or sports drinks. ? Avoid liquids that contain red or purple dye. ??? The day of the procedure: ? Do not eat solid foods. You may continue to drink clear liquids until up to 2 hours before the procedure. ? Do not eat or drink anything starting 2 hours before the procedure, or within the time period that your health care provider recommends. Bowel prep If you were prescribed a bowel prep to take by mouth (orally) to clean out your colon: ??? Take it as told by your health care provider. Starting the day before your procedure, you will need to drink a large amount of liquid medicine. The liquid will cause you to have many bowel movements of loose stool until your stool becomes almost clear or light green. ??? If your skin or the opening between the buttocks (anus) gets irritated from diarrhea, you may relieve the irritation using: ? Wipes with medicine in them, such as adult wet wipes with aloe and vitamin E. ? A product to soothe skin, such as petroleum jelly. ??? If you vomit while drinking the bowel prep: ? Take a break for up to 60 minutes. ? Begin the bowel prep again. ? Call your health care provider if you keep vomiting or you cannot take the bowel prep without vomiting. ??? To clean out your colon, you may also be given: ? Laxative medicines. These help you have a bowel movement. ? Instructions for enema use. An enema is liquid medicine injected into your rectum. Medicines Ask your health care provider about: ??? Changing or stopping your regular medicines or supplements. This is especially important if you are taking iron supplements, diabetes medicines, or blood thinners. ??? Taking medicines such as aspirin and ibuprofen. These medicines can thin your blood. Do not take these medicines unless your health care provider tells you to take them. ??? Taking gqcg-gas-matffmu medicines, vitamins, herbs, and supplements. General instructions ??? Ask your health care provider what steps will be taken to help prevent infection. These may include washing skin with a germ-killing soap. ??? Plan to have someone take you home from the hospital or clinic. What happens during the procedure? An IV will be inserted into one of your veins. ??? You may be given one or more of the following: ? A medicine to help you relax (sedative). ? A medicine to numb the area (local anesthetic). ? A medicine to make you fall asleep (general anesthetic). This is rarely needed. ??? You will lie on your side with your knees bent. ??? The tube will: ? Have oil or gel put on it (be lubricated). ? Be inserted into your anus. ? Be gently eased through all parts of your large intestine. ??? Air will be sent into your colon to keep it open. This may cause some pressure or cramping. ??? Images will be taken with the camera and will appear on a screen. ??? A small tissue sample may be removed to be looked at under a microscope (biopsy). The tissue may be sent to a lab for testing if any signs of problems are found. ??? If small polyps are found, they may be removed and checked for cancer cells. ??? When the procedure is finished, the tube will be removed. The procedure may vary among health care providers and hospitals. What happens after the procedure? Your blood pressure, heart rate, breathing rate, and blood oxygen level will be monitored until you leave the hospital or clinic. ??? You may have a small amount of blood in your stool. ??? You may pass gas and have mild cramping or bloating in your abdomen. This is caused by the air that was used to open your colon during the exam. ??? Do not drive for 24 hours after the procedure. ??? It is up to you to get the results of your procedure. Ask your health care provider, or the department that is doing the procedure, when your results will be ready. Summary ??? A colonoscopy is a procedure to look at the entire large intestine. ??? Follow instructions from your health care provider about eating and drinking before the procedure. ??? If you were prescribed an oral bowel prep to clean out your colon, take it as told by your health care provider. ??? During the colonoscopy, a flexible tube with a camera on its end is inserted into the anus and then passed into the other parts of the large intestine. This information is not intended to replace advice given to you by your health care provider. Make sure you discuss any questions you have with your health care provider. Document Revised: 04/25/2020 Document Reviewed: 04/25/2020 [employer] Patient Education ? 2020 [employer] Colon Polyps Polyps are tissue growths inside the body. Polyps can grow in many places, including the large intestine (colon). A polyp may be a round bump or a mushroom-shaped growth. You could have one polyp or several. Most colon polyps are noncancerous (benign). However, some colon polyps can become cancerous over time. Finding and removing the polyps early can help prevent this. What are the causes? The exact cause of colon polyps is not known. What increases the risk? You are more likely to develop this condition if you: ??? Have a family history of colon cancer or colon polyps. ??? Are older than 50 or older than 45 if you are . ??? Have inflammatory bowel disease, such as ulcerative colitis or Crohn's disease. ??? Have certain hereditary conditions, such as: ? Familial adenomatous polyposis. ? Kaur syndrome. ? Turcot syndrome. ? Peutz?Jeghers syndrome. ??? Are overweight. ??? Smoke cigarettes. ??? Do not get enough exercise. ??? Drink too much alcohol. ??? Eat a diet that is high in fat and red meat and low in fiber. ??? Had childhood cancer that was treated with abdominal radiation. What are the signs or symptoms? Most polyps do not cause symptoms. If you have symptoms, they may include: ??? Blood coming from your rectum when having a bowel movement. ??? Blood in your stool. The stool may look dark red or black. ??? Abdominal pain. ??? A change in bowel habits, such as constipation or diarrhea. How is this diagnosed? This condition is diagnosed with a colonoscopy. This is a procedure in which a lighted, flexible scope is inserted into the anus and then passed into the colon to examine the area. Polyps are sometimes found when a colonoscopy is done as part of routine cancer screening tests. How is this treated? Treatment for this condition involves removing any polyps that are found. Most polyps can be removed during a colonoscopy. Those polyps will then be tested for cancer. Additional treatment may be needed depending on the results of testing. Follow these instructions at home: Lifestyle ??? Maintain a healthy weight, or lose weight if recommended by your health care provider. ??? Exercise every day or as told by your health care provider. ??? Do not use any products that contain nicotine or tobacco, such as cigarettes and e-cigarettes. If you need help quitting, ask your health care provider. ??? If you drink alcohol, limit how much you have: ? 0?1 drink a day for women. ? 0?2 drinks a day for men. ??? Be aware of how much alcohol is in your drink. In the [place] one drink equals one 12 oz bottle of beer (355 mL), one 5 oz glass of wine (148 mL), or one 1? oz shot of hard liquor (44 mL). Eating and drinking ??? Eat foods that are high in fiber, such as fruits, vegetables, and whole grains. ??? Eat foods that are high in calcium and vitamin D, such as milk, cheese, yogurt, eggs, liver, fish, and broccoli. ??? Limit foods that are high in fat, such as fried foods and desserts. ??? Limit the amount of red meat and processed meat you eat, such as hot dogs, sausage, jacobs, and lunch meats. General instructions ??? Keep all follow-up visits as told by your health care provider. This is important. ? This includes having regularly scheduled colonoscopies. ? Talk to your health care provider about when you need a colonoscopy. Contact a health care provider if: ??? You have new or worsening bleeding during a bowel movement. ??? You have new or increased blood in your stool. ??? You have a change in bowel habits. ??? You lose weight for no known reason. Summary ??? Polyps are tissue growths inside the body. Polyps can grow in many places, including the colon. ??? Most colon polyps are noncancerous (benign), but some can become cancerous over time. ??? This condition is diagnosed with a colonoscopy. ??? Treatment for this condition involves removing any polyps that are found. Most polyps can be removed during a colonoscopy. This information is not intended to replace advice given to you by your health care provider. Make sure you discuss any questions you have with your health care provider. Document Revised: 01/18/2019 Document Reviewed: 01/18/2019 [employer] Patient Education ? 2020 [employer]. 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
--- OUTSIDE RECORDS SUMMARY | 2025-07-12 08:51 | XMS_ITS | Encounter Summary ---
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 Name Role Phone Jay Howell MD Primary Care Provider [phone] Encounter Details Date Type Department Care Team (Late st Contact Info) Description 03/03/2021 Transcribed Document [facility] [place] [address] [place] [id number] ProviderJessie MD [address] [place] [id number] Social History Tobacco Use Types Packs/Day Years Used Date Smoking Tobacco: Never Assessed Comments Unknown Sex and Gender Information Value Date Recorded Sex Assigned at Not on file Legal Sex Female 7:30 PM CDT Gender Identity Not on file Sexual Orientation Not on file documented as of this encounter Miscellaneous Notes * Cerner Conversion Note - Historical ProviderMD - 03/03/2021 4:14 PM CDT Patient: SKYLER MONTOYA Age: 80 years Sex: Female : 1940 Associated Diagnoses: Acute right hip pain Author: SPIKE IBRAHIM MD-EMR Basic Information Time seen: Date 03/03/2021, Immediately upon arrival. History source: Patient. Arrival mode: Private vehicle, wheelchair. History limitation: None. Additional information: Chief Complaint from Nursing Triage Note : Chief Complaint 03/03/2021 16:04 EDT Chief Complaint RT hip pain, no known injury. Hip replacement in 2008. Pain radiates down the entire leg. . History of Present Illness The patient presents with right, hip pain. The onset was 6 days ago. The course/duration of symptoms is constant. Type of injury: none. Location: Right hip. The character of symptoms is pain and loss of mobility. The degree at onset was moderate. The degree at present is moderate. There are exacerbating factors including movement, standing and walking. The relieving factor is none. The location where the incident occurred was at home. Risk factors consist of osteoporosis and age. Therapy today: none. Associated symptoms: none. Review of Systems Constitutional symptoms: Negative except [...] except as documented in HPI. Musculoskeletal symptoms: Muscle pain, Joint pain. Neurologic symptoms: Negative except as documented in [...] reactions were documented. Morphine- Rash and rash.. Medications: (Selected) Prescriptions Prescribed Coumadin 3 mg oral tablet: 1 Tab, Oral, Daily, for 5 Day(s), 5 Tab, 0 Refill(s) Norvasc 10 mg oral tablet: 1 Tab, Oral, Daily, 30 Tab, 0 Refill(s) Plavix 75 mg oral tablet: 1 Tab, Oral, Daily, 30 Tab, 0 Refill(s) atorvastatin 80 mg oral tablet: 1 Tab, Oral, At Bedtime, 30 Tab, 0 Refill(s) hydrALAZINE 100 mg oral tablet: 1 Tab, Oral, BID, 60 Tab, 0 Refill(s) lactobacillus acidophilus oral tablet: 2 Tab, Oral, Daily, for 28 Day(s), 56 Tab, 0 Refill(s) Documented Medications Documented Multiple Vitamins oral tablet: 1 Tab, Oral, Daily, 30 Tab, 0 Refill(s) Ranexa 500 mg oral tablet, extended release: 2 Tab, Oral, BID, 0 Refill(s) Xanax 0.5 mg oral tablet: 1 Tab, Oral, At Bedtime, PRN: for anxiety/sleep, 0 Refill(s) carvedilol 6.25 mg oral tablet: 1 Tab, Oral, TID, 60 Tab, 0 Refill(s) dorzolamide 2% ophthalmic solution: 1 Drop, Eye Right, BID, 0 Refill(s) losartan 100 mg oral tablet: 1 Tab, Oral, Daily, 0 Refill(s) metFORMIN 500 mg oral tablet, extended release: 1 Tab, Oral, BID With Meals, 0 Refill(s) omeprazole 40 mg oral delayed release capsule: 1 Cap, Oral, Daily, 30 Cap, 0 Refill(s). Past Medical/ Family/ Social History Surgical history: Cardiac Stent in 2010 at 70 Years. Cardiac Stent on 01/30/2008 at 67 Years. Comments: 06/13/2020 8:52 CHARLEE - EVA WESLEY RN PCI w/ [place] stent to D1 Coronary artery bypass graft ([id number]) in 1992 at 52 Years. femur repair. Appendectomy ([id number]). uterine suspension. Hysterectomy ([id number]). back surgury. Cholecystectomy ([id number]). Hip replacement ([id number]). cataract surgury.. Family history: Cardiomyopathy Child Stroke [...] Physical Examination Vital Signs Vital Signs/Vital Measures 03/03/2021 16:04 EDT Systolic Blood Pressure 136 mmHg Diastolic Blood Pressure 88 mmHg Temperature Source Oral Temperature Mode Fahrenheit Temperature, Fahrenheit 97.0 Deg F Clinical Temperature, C 36.1 Deg C Peripheral Pulse Rate 63 bpm Respiratory Rate 18 Breaths/Min Oxygen Saturation 97 % Oxygen Therapy Mode Room air . Measurements 03/03/2021 16:04 EDT Height Source Stated Height Entry Format [place] Height/Length, INDONESIAN (ft) 5 ft Height/Length INDONESIAN 3 Inch CLINICALHEIGHT 160.02 cm Ivel Body Weight 52.02 kg Weight Source, ED Critical estimated dosing weight Weight Entry Format [place] Weight Guinean lb 154 lb CLINICALWEIGHT 70 kg Body Surface Area (BSA) 1.73 m2 Body Mass Index 27.3 kg/m2 HI . Oxygen Saturation 03/03/2021 16:04 EDT Oxygen Saturation 97 % . General: Alert, mild distress. Skin: Warm, dry, pink, intact. Head: Normocephalic, atraumatic. Cardiovascular: Regular rate and rhythm, No murmur, Normal peripheral perfusion, No edema. Respiratory: Lungs are clear to auscultation, respirations are non-labored, breath sounds are equal, Symmetrical chest wall expansion. Chest wall: No tenderness, No deformity. Musculoskeletal: Lower extremity: Right, posterior, lateral, hip, tenderness, range of motion (limited, restricted by pain). Gastrointestinal: Soft, Nontender, Non distended, Normal bowel sounds, No organomegaly. Neurological: Alert and oriented to person, place, time, and situation, No focal neurological deficit observed. Medical Decision Making Differential Diagnosis: Hip fracture, hip contusion, hip dislocation, pelvic fracture. Documents reviewed: Emergency department nurses' notes. Radiology results: Radiology Results (Last 48 hours) [id number] -- 03/03/2021 15:59 CR Hip Uni Comp Min 2 Vws RT (03/03/2021 16:35) Result: RIGHT HIP SERIES.HISTORY: Right hip pain. COMPARISON: NoneFINDINGS: Two views show no evidence of an acute, displaced fracture ordislocation of the visualized bony architecture. There is a total righthip arthroplasty. There is moderate degenerative change of the left hip.No soft tissue abnormality is seen. IMPRESSION: Postoperative and degenerative changes.Images reviewed, interpreted, and dictated by Dr. Charlette Herrera.Transcribed by Gerhard Bhatia PA-C, KyleeTJessi (N), C Gorge Thornton T.I have personally viewed, interpreted and dictated the examination. Rhianna read and agree with the above final transcribed report. . Reexamination/ Reevaluation Time: 03/03/2021 17:02:00 . Notes: Pt with degenerative changes of R hip w/o acute fracture - hx of R SIMONA, likely needs follow-up with her orthopedist for further eval but called office and cannot get in until April. Spoke with her doctor, Dr Watters, will have office contact pt for follow-up within week. On anticoagulants and not opiate naive. Pain is significant causing problems with ambulation and acute. Justin Dolan reviewed - no recent opiate rx. Plan short course of pain medication, lidoderm patches for home. Impression and Plan Diagnosis Acute right hip pain - Discharge, Medical Plan Condition: Improved. Disposition: Discharged Admit/Transfer/Discharge: Discharge (Order): Start: 03/03/2021 17:04 EDT, Discharge to: Home. Prescriptions: Prescription [facility]: [place] 7.5 mg-325 mg oral tablet (Prescribe): 1 Tab, Oral, Q6H, PRN: for pain, 12 Tab, 0 Refill(s) Lidoderm 5% topical film (Prescribe): 1 Patch, TransDermal, Daily, 10 Patch, 0 Refill(s). Patient was given the following educational materials: Hip Pain. Follow up with: ; KAVITHA WATTERS Within 2 to 3 days Someone from office will call you with a follow-up appointment. Counseled: Patient, Family, Regarding diagnosis, Regarding diagnostic results, Regarding treatment plan, Regarding prescription, Patient indicated understanding of instructions. 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
--- OUTSIDE RECORDS SUMMARY | 2025-07-12 08:51 | XMS_ITS | Encounter Summary ---
Author Organization [employer] ([place], [place], [place], [place]) Address [address] [place] [address] Care Team Providers Care Plate Molder Name Role Phone Jay Howell MD Primary Care Provider [phone] Encounter Details Date Type Department Care Team (Late st Contact Info) Description 02/13/2021 Transcribed Document [facility] [place] [address] [place] [address] ProviderJessie MD [address], [place] [address] Social History Tobacco Use Types Packs/Day Years Used Date Smoking Tobacco: Never Assessed Comments Unknown Sex and Gender Information Value Date Recorded Sex Assigned at Not on file Legal Sex Female 7:30 PM CDT Gender Identity Not on file Sexual Orientation Not on file documented as of this encounter Miscellaneous Notes * Cerner Conversion Note - Historical ProviderMD - 02/13/2021 11:43 AM CDT [facility] Saji IntraOp Summary Primary Physician: FABY GRIMM MD Finalized Date/Time: 02/13/21 12:03:45 Pt. Name: SKYLER MONTOYAO.B./Sex: 1940 Female Med Rec #: [id number] Physician: FABY GRIMM MD Financial #: [id number] Pt. Type: O Room/Bed: END/ Admit/Disch: 02/13/21 09:44:00 - Institution: [facility] - Case Attendance Entry 1 Entry 2 Entry 3 Case Attendee FABY GRIMM MD MILLER, MELISSA A RN ELVIN HUNG Role Performed Surgeon/Proceduralist, Flow Worker, First Scrub, First First Time In 02/13/21 11:35:00 02/13/21 11:35:00 02/13/21 11:35:00 Time Out 02/13/21 12:02:00 02/13/21 11:40:00 02/13/21 12:02:00 Procedure Colonoscopy, Esophageal Biopsy, Esophageal Biopsy, Esophagogastroduodenosco Gastric Biopsy, Colon Gastric Biopsy, Colon py, Esophageal Biopsy, Biopsy, Colon Biopsy, Colon Gastric Biopsy, Colon Polypectomy Polypectomy Biopsy, Colon Polypectomy Other Attendee Superficial Wound Closed By: Last Modified By: Denisa Anderson, Denisa Castillo RN Vernon, Joy, RN 02/13/21 12:00:47 02/13/21 12:00:47 02/13/21 12:00:47 Entry 4 Entry 5 Entry 6 Case Attendee TONY SWEET MOSLEY, SHANA M, STEPHANIE, Denisa Anderson Rn -ANS MANAGER MAC-ANS Role Performed Anesthesiologist of MANAGER MAC/Nurse Trade Embalmer Flow Worker, First Record Time In 02/13/21 11:35:00 02/13/21 11:35:00 02/13/21 11:40:00 Time Out 02/13/21 12:02:00 02/13/21 12:02:00 02/13/21 12:02:00 Procedure Esophageal Biopsy, Esophageal Biopsy, Esophageal Biopsy, Gastric Biopsy, Colon Gastric Biopsy, Colon Gastric Biopsy, Colon Biopsy, Colon Biopsy, Colon Biopsy, Colon Polypectomy Polypectomy Polypectomy Other Attendee Superficial Wound Closed By: Last Modified By: Denisa Anderson RN Vernon, Joy, RN Vernon, Joy, RN 02/13/21 12:00:47 02/13/21 12:00:47 02/13/21 12:00:47 [facility] Endo - Case Attendance Audit 02/13/21 12:00:47 Sanding Machine Tender: [id number] Modifier: [id number] <+> Time Out 1 <*> Procedure Colonoscopy, Esophagogastroduodenoscopy, Esophageal Biopsy, Gastric Biopsy, Colon Biopsy, Colon Polypectomy 2 <*> Procedure Esophageal Biopsy, Gastric Biopsy, Colon Biopsy, Colon Polypectomy 3 <+> Time Out 3 <*> Procedure Esophageal Biopsy, Gastric Biopsy, Colon Biopsy, Colon Polypectomy 4 <+> Time Out 4 <*> Procedure Esophageal Biopsy, Gastric Biopsy, Colon Biopsy, Colon Polypectomy 5 <+> Time Out 5 <*> Procedure Esophageal Biopsy, Gastric Biopsy, Colon Biopsy, Colon Polypectomy 6 <+> Time Out 6 <*> Procedure Esophageal Biopsy, Gastric Biopsy, Colon Biopsy, Colon Polypectomy 02/13/21 12:00:36 Sanding Machine Tender: [id number] Modifier: [id number] <*> Procedure Colonoscopy, Esophagogastroduodenoscopy, Esophageal Biopsy, Gastric Biopsy, Colon Biopsy 2 <*> Procedure Esophageal Biopsy, Gastric Biopsy, Colon Biopsy 3 <*> Procedure Esophageal Biopsy, Gastric Biopsy, Colon Biopsy 4 <*> Procedure Esophageal Biopsy, Gastric Biopsy, Colon Biopsy 5 <*> Procedure Esophageal Biopsy, Gastric Biopsy, Colon Biopsy 6 <*> Procedure Esophageal Biopsy, Gastric Biopsy, Colon Biopsy 02/13/21 11:58:05 Sanding Machine Tender: [id number] Modifier: [id number] <*> Procedure Colonoscopy, Esophagogastroduodenoscopy <+> 2 Procedure <+> 3 Procedure <+> 4 Procedure <+> 5 Procedure <+> 6 Procedure 02/13/21 11:48:04 Sanding Machine Tender: [email or web address] Modifier: [id number] 1 <+> Time In 1 <*> Procedure Colonoscopy, Esophagogastroduodenoscopy <+> 2 Time In <+> 2 Time Out <+> 3 Time In <+> 4 Time In <+> 5 Time In <+> 6 Case Attendee <+> 6 Role Performed <+> 6 Time In 02/13/21 11:38:46 Sanding Machine Tender: [email or web address] Modifier: [email or web address] <+> 2 Case Attendee <+> 2 Role Performed <+> 3 Case Attendee <+> 3 Role Performed <+> 4 Case Attendee <+> 4 Role Performed <+> 5 Case Attendee <+> 5 Role Performed [facility] Endo - Case times Entry 1 Patient In Room Time 02/13/21 11:35:00 Out Room Time 02/13/21 12:02:00 Anesthesia Start Time 02/13/21 11:35:00 Stop Time 02/13/21 12:02:00 Surgery / Procedure Times Start Time 02/13/21 11:43:00 Stop Time 02/13/21 12:00:00 Last Modified By: Denisa Anderson RN 02/13/21 12:00:45 [facility] Endo - Case times Audit 02/13/21 12:00:45 Sanding Machine Tender: [id number] Modifier: [id number] <+> 1 Out Room Time <+> 1 Stop Time <+> 1 Stop Time 02/13/21 11:45:26 Sanding Machine Tender: [email or web address] Modifier: [id number] <+> 1 Start Time [facility] Endo - Cautery Entry 1 ESU Identification Cautery Type Monopolar ESU ID Number [id number] ID Type Hospital Number Cautery Settings Cut Setting 5 Coag Setting 25 ESU Grounding Pad Ground Pad Type Adult Grounding Pad Site Right thigh Grounding Pad ELVIN HUNG Applied By Grounding Pad Site Warm, dry and intact Skin Condition Before Cautery Grounding Pad Site Unchanged Skin Condition After Cautery Last Modified By: Denisa Anderson RN 02/13/21 12:03:44 [facility] Endo - Cautery Audit 02/13/21 12:03:44 Sanding Machine Tender: [id number] Modifier: [id number] <+> 1 ID Number [facility] Endo - Cultures and Spec Summary Entry 1 Cultrures and Specimens Specimen Ordered: Yes Test(s) Routine/Path-Lab Requested/Final Disposition Last Modified By: Denisa Anderson RN 02/13/21 11:59:20 [facility] Endo - Delays Entry 1 Delay Reason Other, No Delay Duration 0 Minute(s) Last Modified By: LO HOFF RN 02/13/21 11:38:59 [facility] Endo - Departure from OR Entry 1 Integumentary Assessment Integumentary WDL Assessment WDL Transfer/Handoff Transfer to PACU Phase I Handoff Method Bedside/Face to face Post-op Transport Stretcher/Gurney Via Patient Transport LO HOFF RN, Accompanied by TRENTON GONZALEZ APRN, MANAGER MAC-ANS Last Modified By: LO HOFF RN 02/13/21 11:39:01 [facility] Endo - Endoscopy Details Entry 1 Abdomen Procedure Soft, Non-Tender Assessment Procedure Abdomen 02/13/21 11:39:00 Assessment D/T Radio Frequency Ablation Abdominal Pressure Last Modified By: LO HOFF RN 02/13/21 11:39:05 [facility] Endo - Fire Risk Assessment Entry 1 Fire Info Surgical Site or 1- Yes Incision Above the Xyphoid Open O2 Source 1- Yes (Mask or Cannula) Available Ignition 1- Yes (ESU, Laser, Light Source) Fire Risk 3 Assessment Score Fire Score Fire Risk Yes Assessment Complete Fire Risk LO HOFF RN Assessment Verified By Fire Risk 02/13/21 11:39:00 Assessment Verified Date/Time Fire Risk High Risk Protocol Yes Implemented Standard Fire Yes Safety Precautions Followed Last Modified By: LO HOFF RN 02/13/21 11:39:08 [facility] Endo - General Case Head Screen Worker 1 Case Information OR Endo 01 [facility] Case Level 1 Room Verified Yes Wound Class III - Contaminated Specialty Gastroenterology Anesthesia Type General ASA Class 4 Diagnosis Preop Diagnosis dyspepsia, change in bowel habits Postop Same As Preop No Postop Diagnosis chronic gastritis, alexis's esophagus, IBS, colon polyp Last Modified By: Denisa Anderson RN 02/13/21 12:02:28 [facility] Endo - General Case Data Audit 02/13/21 12:02:28 Sanding Machine Tender: GIULIA Modifier: [id number] 1 <*> Postop Same As Preop Yes 1 <*> Postop Diagnosis dyspepsia, change in bowel habits [facility] Endo - Intraoperative Assessment Entry 1 Valid History / Yes Physical in Chart Preoperative Yes Checklist Reviewed/Evaluated Patient is Latex No Sensitive Level of WDL Consciousness (WDL = Alert, Oriented to Person, Place, and Time) Last Modified By: LO HOFF RN 02/13/21 11:39:33 [facility] Endo - Intraoperative Equipment Entry 1 Equipment Intraop Monitoring Electrocardiogram Three lead placement (ECG) Electrode Placement Blood Pressure Arm, left upper Location Pulse Oximeter Hand, right Probe Site Antiembolic Devices Scopes Flexible Endoscopes Gastroscope Used Scope Serial E, P Number/Identificatio n Number Photo/Video Documentation Photo Yes Video No Last Modified By: LO HOFF RN 02/13/21 11:39:46 [facility] Endo - Patient Positioning Entry 1 Procedure Esophagogastroduodenosco py Body Position Lateral, right side up Left Arm Position Resting at side Right Arm Position Resting at side Left Leg Position Other Right Leg Position Other Position Comments Right leg over left leg, uncrossed Feet Uncrossed Yes Pressure Points Yes Checked Positioned By LO HOFF RN Position Verified Positioning Yes Verified by Surgeon Last Modified By: LO HOFF RN 02/13/21 11:39:48 [facility] Endo - Sign In Entry 1 Patient, Site, Yes Procedure Identified Surgical Consent Yes Confirmed Surgical Site N/A Marked by person performing procedure Airway Hypothermia Risk No Warming Measures No Taken Last Modified By: LO HOFF RN 02/13/21 11:39:54 [facility] Endo - Sign Out Entry 1 RN Confirmation Surgical Yes Procedure(s) Identified Instrument, Sponge N/A and Sharps Counts Correct/Documented Equipment Problems N/A Documented Specimen Labeled Yes Correctly Urinary Catheter N/A Documented in IView Safety Checklist Yes Elements Complete? RN Sign Out LO HOFF RN Signature RN Sign Out 02/13/21 12:02:00 Signature Date/Time Plan of Care Outcome - [...] of Care Outcome - Xray/Images OUTCOME STATEMENT: N/A Absence of observable signs or symptoms of radiation injury Plan of Care Outcome - Counts OUTCOME STATEMENT: N/A Absence of signs and symptoms of injury related to extraneous objects Last Modified By: Denisa Anderson RN 02/13/21 12:01:16 [facility] Endo - Surgical Procedures Entry 1 Entry 2 Entry 3 Procedure Colonoscopy Esophagogastroduodenosco Esophageal Biopsy py Modifiers Additional DIAGNOSTIC DIAGNOSTIC Procedure Description Primary Procedure No Yes No Primary Surgeon FABY GRIMM MD YONG, JUNE, MD YONG, JUNE, MD Start 02/13/21 11:50:00 02/13/21 11:43:00 02/13/21 11:43:00 Stop 02/13/21 12:00:00 02/13/21 11:46:00 02/13/21 12:00:00 Physician States 02/13/21 11:52:00 Cecum Reached Anesthesia Type MAC MAC MAC Specialty Gastroenterology Gastroenterology Gastroenterology Wound Class III - Contaminated II - Clean-Contaminated II - Clean-Contaminated Last Modified By: Deinsa Anderson RN Vernon, Joy, RN Vernon, Joy, RN 02/13/21 12:01:06 02/13/21 11:58:01 02/13/21 12:01:06 Entry 4 Entry 5 Entry 6 Procedure Gastric Biopsy Colon Biopsy Colon Polypectomy Modifiers Additional antrum bx random colon bx ascending colon polyp Procedure Description Primary Procedure No No No Primary Surgeon FABY GRIMM MD YONG, JUNE, MD YONG, JUNE, MD Start 02/13/21 11:43:00 02/13/21 11:50:00 02/13/21 11:50:00 Stop 02/13/21 12:00:00 02/13/21 12:00:00 02/13/21 12:00:00 Physician States 02/13/21 11:52:00 Cecum Reached Anesthesia Type MAC MAC MAC Specialty Gastroenterology Gastroenterology Gastroenterology Wound Class II - Clean-Contaminated III - Contaminated III - Contaminated Last Modified By: Denisa Anderson RN Vernon, Joy, RN Vernon, Joy, RN 02/13/21 12:01:06 02/13/21 12:01:06 02/13/21 12:01:06 [facility] Endo - Surgical Procedures Audit 02/13/21 12:01:06 Sanding Machine Tender: [id number] Modifier: [id number] <+> 1 Stop <+> 3 Stop <+> 4 Stop <+> 5 Stop <+> 6 Stop 02/13/21 12:00:33 Sanding Machine Tender: [id number] Modifier: [id number] <+> 6 Procedure <+> 6 Primary Procedure <+> 6 Primary Surgeon <+> 6 Specialty <+> 6 Start <+> 6 Wound Class <+> 6 Anesthesia Type <+> 6 Additional Procedure Description <+> 6 Physician States Cecum Reached 02/13/21 11:58:01 Sanding Machine Tender: [id number] Modifier: [id number] 1 <*> Procedure Colonoscopy 1 <+> Start 1 <+> Physician States Cecum Reached 2 <*> Procedure Esophagogastroduodenoscopy 2 <+> Start 2 <+> Stop <+> 3 Procedure <+> 3 Primary Procedure <+> 3 Primary Surgeon <+> 3 Specialty <+> 3 Start <+> 3 Wound Class <+> 3 Anesthesia Type <+> 4 Procedure <+> 4 Primary Procedure <+> 4 Primary Surgeon <+> 4 Specialty <+> 4 Start <+> 4 Wound Class <+> 4 Anesthesia Type <+> 4 Additional Procedure Description <+> 5 Procedure <+> 5 Primary Procedure <+> 5 Primary Surgeon <+> 5 Specialty <+> 5 Start <+> 5 Wound Class <+> 5 Anesthesia Type <+> 5 Additional Procedure Description [facility] Endo - Time Out Entry 1 Procedure to be Colonoscopy, Performed Esophagogastroduodenosco py Time Out Time Out Pause Time 02/13/21 11:40:00 All activity Yes suspended (unless life threatening emergency) Team Verbally Correct patient Confirms Information identity, Consent form is present and accurate, Agreement on the procedure to be done, Correct patient position, Relevant images/results properly labeled/appropriately displayed, Reconcile problems if responses among team members differ Antibiotic N/A Prophylaxis Administered Or In Progress Within the Last 60 Minutes Beta Sanjuana N/A Administered Venous N/A Thromboembolism Prophylaxis Required Anticipated Critical Events Surgeon None expected Last Modified By: LO HOFF RN 02/13/21 11:40:12 Case Comments <None> Finalized By: Denisa Anderson, RN Document Signatures Signed By: Denisa Anderson RN 02/13/21 12:03 Electronically signed by Sivan [facility] Conversion Flight Paramedic Cerner at 02/04/2023 2:05 PM CDT documented in this encounter Plan of Treatment Not on file documented as of this encounter Visit Diagnoses Not on filedocumented in this encounter Care Teams Plate Molder Relationship Specialty Start Date End Date Jay Howell MD [address] [place] [phone] PCP - General Emergency Medicine 11/12/23 documented as of this encounter
--- OUTSIDE RECORDS SUMMARY | 2025-07-12 08:51 | XMS_ITS | Encounter Summary ---
Author Organization [employer] ([place], [place], [place], [place]) Address [address] [place] [address] Care Team Providers Care Business Case Analyst Name Role Phone Jay Howell MD Primary Care Provider [phone] Encounter Details Date Type Department Care Team (Late st Contact Info) Description 06/14/2020 Transcribed Document [facility] [place] Medicine [address] [place] [address] ProviderJessie MD [address] [place] [address] Social History Tobacco Use Types Packs/Day Years Used Date Smoking Tobacco: Never Assessed Comments Unknown Sex and Gender Information Value Date Recorded Sex Assigned at Not on file Legal Sex Female 7:30 PM CDT Gender Identity Not on file Sexual Orientation Not on file documented as of this encounter Miscellaneous Notes * Cerner Conversion Note - Historical ProviderMD - 06/14/2020 5:00 AM CDT Chart Check - Review Order Profile Entered On: 06/14/2020 6:24 EDT Performed On: 06/14/2020 5:00 EDT by PAUL GERBER RN Chart Check Powerplans Initiated/Discontinued as Appropriate : Yes All Active Orders Reviewed : Yes PAUL GERBER RN - 06/14/2020 6:24 EDT Electronically signed by Sivan [facility] Conversion Trauma Program Manager Cerner at 02/04/2023 2:11 PM CDT documented in this encounter Plan of Treatment Not on file documented as of this encounter Visit Diagnoses Not on filedocumented in this encounter Care Teams Business Case Analyst Relationship Specialty Start Date End Date Jay Howell MD [address] [place] [phone] PCP - General Emergency Medicine 11/12/23 documented as of this encounter
--- OUTSIDE RECORDS SUMMARY | 2025-07-12 08:51 | XMS_ITS | Encounter Summary ---
Author Organization [employer] ([place], [place], [place], [place]) Address [address] [place] [address] Care Team Providers Care Neon Sign Worker Name Role Phone Jay Howell MD Primary Care Provider [phone] Encounter Details Date Type Department Care Team (Late st Contact Info) Description 12/21/2018 Transcribed Document [facility] [place] Medicine [address] [place] [address] ProviderJessie MD [address] [place] [address] Social History Tobacco Use Types Packs/Day Years Used Date Smoking Tobacco: Never Assessed Comments Unknown Sex and Gender Information Value Date Recorded Sex Assigned at Not on file Legal Sex Female 7:30 PM CDT Gender Identity Not on file Sexual Orientation Not on file documented as of this encounter Miscellaneous Notes * Cerner Conversion Note - Jessie ProviderMD - 12/21/2018 9:33 AM PHOTO EQUIPMENT TECHNICIAN Care Management Assessment/Plan Entered On: 12/21/2018 9:34 EST Performed On: 12/21/2018 9:33 EST by ANISH BRAN RN Care Management Note Care Management Note Report : ANISH BRAN RN - 12/21/18 09:37:01 Discharging today ANISH BRAN RN - 12/21/2018 12:24 EST Care Management Note : Order for cardiac rehab to the program at [facility] - they will ocntact pt Documentation Status Complete : Yes ANISH BRAN RN - 12/21/2018 9:33 EST Discharge Planning Details Discharge Home : Home with spouse/significant other Discharge Placement Needs : Home Persons Assisting Patient at Home : Spouse Transportation Needs : Family/Friend ANISH BRAN RN - 12/21/2018 9:33 EST Final Discharge Disposition Note-CM Discharge To Care Management : Home/Residential/Long Term or Self Care -01 ANISH BRAN RN - 12/21/2018 9:33 EST Electronically signed by [facility] Conversion Crewman Main [employer] Cerner at 02/04/2023 2:07 PM CDT documented in this encounter Plan of Treatment Not on file documented as of this encounter Visit Diagnoses Not on filedocumented in this encounter Care Teams Neon Sign Worker Relationship Specialty Start Date End Date Jay Howell MD [address] [place] [phone] PCP - General Emergency Medicine 11/12/23 documented as of this encounter
--- OUTSIDE RECORDS SUMMARY | 2025-07-12 08:51 | XMS_ITS | Encounter Summary ---
Author Organization [employer] ([place], [place], [place], [place]) Address [address] [place] [address] Care Team Providers Care Gas Operator Name Role Phone Jay Howell MD Primary Care Provider [phone] Encounter Details Date Type Department Care Team (Late st Contact Info) Description 08/23/2020 Transcribed Document [facility] [place] [address] [place] [address] ProviderJessie MD [address] [place] [address] Social History Tobacco Use Types Packs/Day Years Used Date Smoking Tobacco: Never Assessed Comments Unknown Sex and Gender Information Value Date Recorded Sex Assigned at Not on file Legal Sex Female 7:30 PM CDT Gender Identity Not on file Sexual Orientation Not on file documented as of this encounter Miscellaneous Notes * Cerner Conversion Note - Historical ProviderMD - 08/23/2020 1:04 AM MAKEUP ARTIST Electronically signed by [facility], [facility] Conversion Service Coordinator Cerner at 02/04/2023 1:59 PM CDT documented in this encounter Plan of Treatment Not on file documented as of this encounter Visit Diagnoses Not on filedocumented in this encounter Care Teams Gas Operator Relationship Specialty Start Date End Date Jay Howell MD [address] [place] [phone] PCP - General Emergency Medicine 11/12/23 documented as of this encounter
--- OUTSIDE RECORDS SUMMARY | 2025-07-12 08:51 | XMS_ITS | Encounter Summary ---
Author Organization [employer] ([place], [place], [place], [place]) Address [address] [place] [address] Care Team Providers Care Slate Cutter Operator Name Role Phone Jay Howell MD Primary Care Provider [phone] Encounter Details Date Type Department Care Team (Late st Contact Info) Description 08/22/2020 Transcribed Document [facility] [place] [address] [place] [address] ProviderJessie MD [address] [place] [address] Social History Tobacco Use Types Packs/Day Years Used Date Smoking Tobacco: Never Assessed Comments Unknown Sex and Gender Information Value Date Recorded Sex Assigned at Not on file Legal Sex Female 7:30 PM CDT Gender Identity Not on file Sexual Orientation Not on file documented as of this encounter Miscellaneous Notes * Cerner Conversion Note - Jessie ProviderMD - 08/22/2020 8:49 PM HEALTH AIDE ED Assessment Entered On: 08/23/2020 1:11 EST Performed On: 08/22/2020 21:11 EST by Oumou Augustine RN ED Quick Look Assessment Level of Consciousness : Alert Orientation : Oriented x 4 Oumou uAgustine RN - 08/23/2020 1:08 EST ED General-Functional Assess Preferred Communication Mode : Verbal Communication Barrier : None Primary Language : Mozambican Any Spiritual/Cultural Needs or Requests : No Currently in Unsafe Situation : No Oumou Augustine RN - 08/23/2020 1:08 EST Social Habits Smoking Status : Never (less than 100 in lifetime; none in last 30 days) Smokeless Tobacco Status : Never Desires Tobacco Cessation Calc : 0 Oumou Augustine RN - 08/23/2020 1:08 EST Social History (As Of: 08/23/2020 01:11:49 EST) Tobacco: Smoking Status Former smoker. Comments: [...] ASMT, ED Cardiovascular Assessment WDL : WDL Oumou Augustine RN - 08/23/2020 1:08 EST Integumentary Assessment Integumentary Assessment WDL : LALO with exceptions Integumentary Assessment Comment : pt with hematoma on left lower leg, red swollen, PMS intact with movement limited r/t pain Oumou Augustine RN - 08/23/2020 1:08 EST Electronically signed by Sivan [facility] Conversion Multi Care Technician Cerner at 02/04/2023 1:58 PM CDT documented in this encounter Plan of Treatment Not on file documented as of this encounter Visit Diagnoses Not on filedocumented in this encounter Care Teams Slate Cutter Operator Relationship Specialty Start Date End Date Jay Howell MD [address] [place] [phone] PCP - General Emergency Medicine 11/12/23 documented as of this encounter
--- OUTSIDE RECORDS SUMMARY | 2025-07-12 08:51 | XMS_ITS | Encounter Summary ---
Author Organization [employer] ([place], [place], [place], [place]) Address [address] [place] [address] Care Team Providers Care Materials Management Manager Name Role Phone Jay Howell MD Primary Care Provider [phone] Encounter Details Date Type Department Care Team (Late st Contact Info) Description 03/03/2021 Transcribed Document [facility] [place] Family Medicine [address] [place] [id number] ProviderJessie MD [address] [place] [id number] Social History Tobacco Use Types Packs/Day Years Used Date Smoking Tobacco: Never Assessed Comments Unknown Sex and Gender Information Value Date Recorded Sex Assigned at Not on file Legal Sex Female 7:30 PM CDT Gender Identity Not on file Sexual Orientation Not on file documented as of this encounter Miscellaneous Notes * Cerner Conversion Note - Jessie ProviderMD - 03/03/2021 5:11 PM CDT ED Discharge Entered On: 03/03/2021 17:11 EDT Performed On: 03/03/2021 17:11 EDT by Marek Sanford Rn Discharge Process Patient Disposition : Discharge Personal Belongings With Patient : Yes Patient Education Completed : Yes Teaching Evaluation : Verbalizes understanding Nursing Documentation Completed : Yes Marek Sanford Rn - 03/03/2021 17:11 EDT ED Discharge Discharge To : Home with ambulatory/outpatient follow-up Mode Of Departure : Private vehicle Discharge Instructions Reviewed With, Opportunity For Questions Given : Patient Marek Sanford Rn - 03/03/2021 17:11 EDT Electronically signed by Sivan [facility] Conversion Closed Circuit Screen Watcher Cerner at 02/04/2023 2:10 PM CDT documented in this encounter Plan of Treatment Not on file documented as of this encounter Visit Diagnoses Not on filedocumented in this encounter Care Teams Materials Management Manager Relationship Specialty Start Date End Date Jay Howell MD [address] [place] [phone] PCP - General Emergency Medicine 11/12/23 documented as of this encounter
--- OUTSIDE RECORDS SUMMARY | 2025-07-12 08:51 | XMS_ITS | Encounter Summary ---
Author Organization [employer] ([place], [place], [place], [place]) Address [address] [place] [address] Care Team Providers Care Permit Review Assistant Name Role Phone Jay Howell MD Primary Care Provider [phone] Encounter Details Date Type Department Care Team (Late st Contact Info) Description 12/21/2018 Transcribed Document [facility] [place] [facility] [place] [address] ProviderJessie MD [address] [place] [phone] Social History Tobacco Use Types Packs/Day Years Used Date Smoking Tobacco: Never Assessed Comments Unknown Sex and Gender Information Value Date Recorded Sex Assigned at Not on file Legal Sex Female 7:30 PM CDT Gender Identity Not on file Sexual Orientation Not on file documented as of this encounter Miscellaneous Notes * Cerner Conversion Note - Jessie ProviderMD - 12/21/2018 12:17 PM 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 [address] , [place], [place] [id number] Patient Copy Patient Information: Name: SKYLER MONTOYA Current Date: 12/21/2018 12:17:17 : 1940 Patient Address: [address] [place] [phone] Patient Attending Physician: FREDY YAÑEZ MD-CAR Primary Care Provider: TARA CHEN (REF), -MED Primary Care Provider Discharge Diagnosis: CAD (coronary artery disease); DM (diabetes mellitus); Exertional angina; HLD (hyperlipidemia); HTN (hypertension); Hx of CABG; DANTE (obstructive sleep apnea); Paroxysmal A-fib Weight on Admission: 158 lb, 0 oz Comment: Follow-up Instructions: With: Address: When: [facility] [address], [place] [address] Business (1) In 1 month 01/21/2019 With: Address: When: [facility] [address], [address] [place], [place] [id number] Business (1) Within 2 to 5 weeks Comments: Office to call with appoint/instructions Discharge Instructions: Diet after Discharge: Heart healthy diet Activity after Discharge: Rest and relax today, No strenuous activities, No heavy lifting over 10 pounds Showering/Bathing:May shower, No tub bathing, soaking, or swimming Wound/Incision Care after Discharge: Keep operative site/wound site clean and dry Immunizations Documented During Stay: No Immunizations Found [...] What foods can I eat? GrainsBreads, including Tanzanian, white, jie, wheat, raisin, rye, oatmeal, and Slovak. Tortillas that are neither fried nor made with lard or trans fat. Low-fat rolls, including hotdog and hamburger buns and Belgian muffins. Biscuits. Muffins. Waffles. Pancakes. Light popcorn. [...] cottage cheese. Whole-milk cheeses, including blue (fredo), [place] Armand, Brie, Nate, Chadian, Havarti, Portuguese, cheddar, Camembert, and [place]. Whole or 2% milk that is liquid, [...] that has suet, meat fat, or shortening. [place] butter, hydrogenated oils, palm oil, coconut oil, [...] Revised: 03/10/2017 Document Reviewed: 03/27/2015 ? 2017 [employer]elin Coronary Artery Disease, Female Coronary artery disease [...] can cause a heart attack (myocardial infarction, [place]). CAD is a leading cause of for [...] 12/25/2012 Document Revised: 03/10/2017 Document Reviewed: 02/04/2015 [employer] Interactive Patient Education ? 2017 [employer] Groin Site Care Refer to this [...] Document Reviewed: 11/05/2011 ExitCare? Patient Information ?2013 [employer]. Angiogram An angiogram, also called angiography, is [...] including vitamins, herbs, eye drops, creams, and aapq-ewg-htzikil medicines. ??? Any problems you or family [...] 07/13/2006 Document Revised: 03/16/2017 Document Reviewed: 03/06/2014 [employer] Interactive Patient Education ? 2017 [employer]. Medication Leaflets: valsartan (elin BAUTISTA foster) Rivka What is the most important [...] valsartan; ?? if you are on a efg-cdnf-jpjk; ?? if you are dehydrated; or ?? [...] may report side effects to FDA at 7-755-CNE-4787. What other drugs will affect valsartan? Tell [...] may interact with valsartan, including prescription and ijrv-sjo-fjrcjyc medicines, vitamins, and herbal products. Not all [...] to ensure that the information provided by Lanx. ('Multum') is accurate, up-to-date, and complete, but no guarantee is made to that effect. Drug information contained herein may be time sensitive. wesync.tv information has been compiled for use by healthcare practitioners and consumers in the [place] and therefore wesync.tv does not warrant that uses outside of the [place] are appropriate, unless specifically indicated otherwise. LightUps drug information does not endorse drugs, diagnose patients or recommend therapy. DabKick drug information is an informational resource designed [...] effective or appropriate for any given patient. wesync.tv does not assume any responsibility for any aspect of healthcare administered with the aid of information wesync.tv provides. The information contained herein is not intended to cover all possible uses, directions, precautions, warnings, drug interactions, allergic reactions, or adverse effects. If you have questions about the drugs you are taking, check with your doctor, nurse or pharmacist. Copyright 6915-6594 Lanx. Version: 16.05. Revision Date: 09/08/2016. hydralazine (bob [...] may report side effects to FDA at 7-421-GDO-4652. What other drugs will affect hydralazine? Tell your doctor about all your current medicines and any you start or stop using, especially: ? diazoxide (an injectable blood pressure medication); or ?? an MAO inhibitor--isocarboxazid, linezolid, methylene blue injection, phenelzine, rasagiline, selegiline, tranylcypromine, and others. This list is not complete. Other drugs may interact with hydralazine, including prescription and yewr-uxs-qhupijn medicines, vitamins, and herbal products. Not all [...] to ensure that the information provided by Lanx. ('Multum') is accurate, up-to-date, and complete, but no guarantee is made to that effect. Drug information contained herein may be time sensitive. wesync.tv information has been compiled for use by healthcare practitioners and consumers in the [place] and therefore wesync.tv does not warrant that uses outside of the [place] are appropriate, unless specifically indicated otherwise. wesync.tv's drug information does not endorse drugs, diagnose patients or recommend therapy. LightUps drug information is an informational resource designed [...] effective or appropriate for any given patient. wesync.tv does not assume any responsibility for any aspect of healthcare administered with the aid of information wesync.tv provides. The information contained herein is not intended to cover all possible uses, directions, precautions, warnings, drug interactions, allergic reactions, or adverse effects. If you have questions about the drugs you are taking, check with your doctor, nurse or pharmacist. Copyright 3875-8958 Lanx. Version: 5.01. Revision Date: 10/26/2017. [facility]lodipine (am CAS reyes) [facility] What is the most important information I [...] may report side effects to FDA at 3-971-HJL-6522. What other drugs will affect amlodipine? Tell your doctor about all your current medicines and any you start or stop using, especially: ? nitroglycerin; ?? simvastatin (Zocor, Simcor, Vytorin); or ?? any other heart or blood pressure medications. This list is not complete. Other drugs may interact with amlodipine, including prescription and lezo-bxa-zxfjcbn medicines, vitamins, and herbal products. Not all [...] to ensure that the information provided by Lanx. ('U For Lifetum') is accurate, up-to-date, and complete, but no guarantee is made to that effect. Drug information contained herein may be time sensitive. wesync.tv information has been compiled for use by healthcare practitioners and consumers in the [place] and therefore wesync.tv does not warrant that uses outside of the [place] are appropriate, unless specifically indicated otherwise. LightUps drug information does not endorse drugs, diagnose patients or recommend therapy. LightUps drug information is an informational resource designed [...] effective or appropriate for any given patient. wesync.tv does not assume any responsibility for any aspect of healthcare administered with the aid of information wesync.tv provides. The information contained herein is not intended to cover all possible uses, directions, precautions, warnings, drug interactions, allergic reactions, or adverse effects. If you have questions about the drugs you are taking, check with your doctor, nurse or pharmacist. Copyright 6158-3508 Lanx. Version: 14.01. Revision Date: 01/24/2017. clopidogrel (kloe PID oh [...] may report side effects to FDA at 9-253-HQA-8752. What other drugs will affect clopidogrel? Certain other medicines may increase your risk of bleeding, including aspirin. Avoid taking aspirin unless your doctor tells you to. Tell your doctor about all your other medicines, especially: ? any other medicines to treat or prevent blood clots; ?? a stomach acid chief of vital statistics such as omeprazole, Nexium, or Prilosec; ?? an antidepressant; ?? an opioid medication; ?? a blood thinner--warfarin, Coumadin, Jantoven; or ?? NSAIDs (nonsteroidal anti-inflammatory drugs)--ibuprofen (Advil, Motrin), naproxen (Aleve), celecoxib, diclofenac, indomethacin, meloxicam, and others. This list is not complete. Other drugs may affect clopidogrel, including prescription and zugl-tcz-bxogvck medicines, vitamins, and herbal products. Not all [...] to ensure that the information provided by Lanx. ('Multum') is accurate, up-to-date, and complete, but no guarantee is made to that effect. Drug information contained herein may be time sensitive. wesync.tv information has been compiled for use by healthcare practitioners and consumers in the [place] and therefore wesync.tv does not warrant that uses outside of the [place] are appropriate, unless specifically indicated otherwise. LightUps drug information does not endorse drugs, diagnose patients or recommend therapy. LightUps drug information is an informational resource designed [...] effective or appropriate for any given patient. wesync.tv does not assume any responsibility for any aspect of healthcare administered with the aid of information wesync.tv provides. The information contained herein is not intended to cover all possible uses, directions, precautions, warnings, drug interactions, allergic reactions, or adverse effects. If you have questions about the drugs you are taking, check with your doctor, nurse or pharmacist. Copyright 4284-3109 Lanx. Version: 15.01. Revision Date: 08/07/2018. ranolazine (ra FAUSTO justin) Ranexa What is the most important information [...] following drugs: ? clarithromycin; ?? nefazodone; ?? [place]'s wort; ?? antifungal medicine--itraconazole, ketoconazole; ?? HIV [...] may report side effects to FDA at 5-692-CMW-4142. What other drugs will affect ranolazine? Many [...] interact with ranolazine. This includes prescription and tsvz-vin-fmbdava medicines, vitamins, and herbal products. Give a [...] to ensure that the information provided by Lanx. ('Multum') is accurate, up-to-date, and complete, but no guarantee is made to that effect. Drug information contained herein may be time sensitive. wesync.tv information has been compiled for use by healthcare practitioners and consumers in the [place] and therefore wesync.tv does not warrant that uses outside of the [place] are appropriate, unless specifically indicated otherwise. wesync.tv's drug information does not endorse drugs, diagnose patients or recommend therapy. LightUps drug information is an informational resource designed [...] effective or appropriate for any given patient. wesync.tv does not assume any responsibility for any aspect of healthcare administered with the aid of information wesync.tv provides. The information contained herein is not intended to cover all possible uses, directions, precautions, warnings, drug interactions, allergic reactions, or adverse effects. If you have questions about the drugs you are taking, check with your doctor, nurse or pharmacist. Copyright 3260-4495 Lanx. Version: 11.. Revision Date: 12/04/2015. CIGARETTE SMOKING: The facts are clear, cigarette smoking will shorten your life. Smoking can cause many illnesses along the way. As a healthcare provider, we recommend that you stop smoking. Assistance with quitting is available by contacting 4-445-YSAM-NOW. This is a free resource providing counseling, [...] Be sure to sign up for the [employer] patient portal, which gives you 09/05 access to your medical information ??? including these discharge instructions ??? using your computer, smartphone, or tablet. Just go to Su[employer]i to get started. Questions? Call . [facility] would like to thank you for allowing us to assist you with your healthcare needs. MICHELE Skaggs JUDY D, (or food products sales representative) have received the above patient education materials/instructions and have verbalized understanding: Patient Signature _ Date/Time Patient Ambulatory Care Coordinator Signature (if needed) Date/Time Clinician/Hospital Ambulatory Care Coordinator Signature (if needed) Date/Time Electronically signed by Sivan, [facility] Conversion Salesperson Driver Cerner at 02/04/2023 2:01 PM CDT documented in this encounter Plan of Treatment Not on file documented as of this encounter Visit Diagnoses Not on filedocumented in this encounter Care Teams Permit Review Assistant Relationship Specialty Start Date End Date Jay Howell MD [address] [place] [phone] PCP - General Emergency Medicine 11/12/23 documented as of this encounter
--- OUTSIDE RECORDS SUMMARY | 2025-07-12 08:51 | XMS_ITS | Encounter Summary ---
Author Organization [employer] ([place], [place], [place], [place]) Address [address] [place] [address] Care Team Providers Care Pharmacy Clinical Specialist Name Role Phone Jay Howell MD Primary Care Provider [phone] Encounter Details Date Type Department Care Team (Late st Contact Info) Description 02/13/2021 Transcribed Document [facility] [place] Family Medicine [facility] [place] [address] ProviderJessie MD [address] [place], [place] [address] Social History Tobacco Use Types Packs/Day Years Used Date Smoking Tobacco: Never Assessed Comments Unknown Sex and Gender Information Value Date Recorded Sex Assigned at Not on file Legal Sex Female 7:30 PM CDT Gender Identity Not on file Sexual Orientation Not on file documented as of this encounter Miscellaneous Notes * Cerner Conversion Note - Historical ProviderMD - 02/13/2021 10:47 AM CDT Pre Procedure Adult Entered On: 02/13/2021 10:50 EDT Performed On: 02/13/2021 10:47 EDT by Ludivina Tompkins RN-PATIENT CARE BEDSIDE NON-EXEMPT Height and Weight, Clinical Dosing Height Source : Stated Height Entry Format : [place] Height, Feet : 5 ft(Converted to: 152 cm, 60 Inch) Height, Inches : 4 Inch(Converted to: 0 ft 4 Inch, 10.16 cm) Clinical Height : 162.56 cm Weight Source : Standing scale Weight Entry Format : [place] Clinical Dosing Weight : 71.64 kg Weight, Pounds : 157.6 lb Body Surface Area (BSA) : 1.77 m2 Body Mass Index : 27.1 kg/m2 (HI) [place] Body Weight : 54 kg Ludivina Tompkins RN-PATIENT CARE BEDSIDE NON-EXEMPT - 02/13/2021 10:47 EDT Health Histories Smoking Status : Never (less than 100 in lifetime; none in last 30 days), Former smoker, quit more than 30 days ago Smokeless Tobacco Status : Never Ludivina Tompkins RN-PATIENT CARE BEDSIDE NON-EXEMPT - 02/13/2021 10:47 EDT Social History (As Of: 02/13/2021 10:50:57 EDT) Tobacco: Smoking Status Former smoker. Comments: [...] 12/14/2014 22:42:39 EST by BIPIN HOFF RN) Infectious Disease History Has the patient ever been tested for COVID-19? : Yes, Patient stated results Negative Date of COVID-19 test known? : Yes Date of COVID-19 Test : 02/10/2021 EDT Does patient have symptoms of COVID-19? : No COVID19 Screening : No Experiencing Infectious Disease Symptoms : No symptoms Physical contact outside [place] in the last 30 days : No Infectious Disease History : Chicken pox/Shingles, Measles, Mumps Tuberculosis Symptoms : None Ludivina Tompkins RN-PATIENT CARE BEDSIDE NON-EXEMPT - 02/13/2021 10:47 EDT COVID19 PreProcedure Screening Is this an Emergent or Add on Procedure? : No Date PreProcedure COVID-19 test known? : Yes Date of PreProcedure COVID-19 : 02/10/2021 EDT Has patient been isolated since the test : Yes Exposed to COVID19 symptoms since test? : No Ludivina Tompkins RN-PATIENT CARE [facility] NON-EXEMPT - 02/13/2021 10:47 EDT Anesthesia/Transfusion History Family History of Anesthesia Reaction : Prior transfusion reaction Type of Transfusion Reaction : Hemolytic reaction Transfusion History : Prior anesthesia without reaction Family History of Anesthesia Reaction : None Ludivina Tompkins RN-PATIENT CARE [facility] NON-EXEMPT - 02/13/2021 10:47 EDT Functional Assessment Living Situation : Home Current Home Treatments : Blood glucose monitoring, CPAP Ludivina Tompkins RN-PATIENT CARE [facility] NON-EXEMPT - 02/13/2021 10:47 EDT [place] Suicide Severity Rating Scale (C-SSRS) CSSRS Past Month Wish to be : No CSSRS Past Month Suicidal Thoughts : No CSSRS Lifetime Suicide Behavior : No Suicide Severity Rating Score : 0 Suicide Severity Rating : No Additional Care Required at this time Ludivina Tompkins RN-PATIENT CARE [facility] NON-EXEMPT - 02/13/2021 10:47 EDT Psychosocial History Chronic/Terminal Illness w/Freq Visits : No Currently in Unsafe Situation : No Ludivina Tompkins RN-PATIENT CARE [facility] NON-EXEMPT - 02/13/2021 10:47 EDT Advance Directive Patient has Advance Directive *Q : No, patient refuses Advance Directive information Ludivina Tompkins RN-PATIENT CARE [facility] NON-EXEMPT - 02/13/2021 10:47 EDT General Info Preferred Name : ilsa Support Person/Patient Education Manager : Yes Support Person/Pt Rep Name : Willard Contact Password : Marvin Support Person/Pt Rep Contact Information : [phone] Want Family/Rep/Phys Notified of Admit : No Emergency Contact #1 : Johnny Montoya Emergency Contact #1 Emergency Contact #1 Relationship : spouse Emergency Contact #2 : - Emergency Contact #2 Phone Number : - Emergency Contact #2 Relationship : - Primary Language : Gibraltarian Preferred Communication Mode : Verbal Communication Barrier : None Digital Solution Architect Needed : Luidvina Tong RN-PATIENT CARE BEDSIDE NON-EXEMPT - 02/13/2021 10:47 EDT Sleep Apnea Risk Assmt BiPAP/CPAP Ordered for Home Use : Yes Hx of Obstructive Sleep Apnea Diagnosis : Yes BiPAP/CPAP Used at Home : No Reason BiPAP/CPAP Not Used at Home : no working correctly Age over 50 Years Old : Yes Gender Male : No Ludivina Tompkins RN-PATIENT CARE BEDSIDE NON-EXEMPT - 02/13/2021 10:47 EDT Srinivasan Scale Srinivasan Sensory Perception : No impairment Srinivasan Moisture : Rarely moist Srinivasan Activity : Walks frequently Srinivasan Mobility : No limitation Srinivasan Nutrition : Excellent Srinivasan Friction and Shear : No apparent problem Srinivasan Score : 23 Ludivina Tompkins RN-PATIENT CARE BEDSIDE NON-EXEMPT - 02/13/2021 10:47 EDT Fall Risk Scales ABCs Fall Injury Risk Identification : None THOMAS Hx Falls Immediate/Within 3 Months : No Thomas Secondary Diagnosis : Yes THOMAS Use of Ambulatory Aid : None THOMAS IV Therapy or IV Access : Yes Thomas Gait/Transferring : Normal, bedrest, immobile Thomas Mental Status : Oriented to own ability Thomas Fall Risk Score : 35 HTOMAS Fall Scale Risk Level : 25-45 Medium Risk [place] Fall Interventions : Adequate lighting, Bed in low position, Call device within reach, Non-slip footwear, Personal items within reach, Wheels locked Ludivina Tompkins RN-PATIENT CARE BEDSIDE NON-EXEMPT - 02/13/2021 10:47 EDT Valuables and Belongings Valuables and Belongings : Clothing, Personal devices, Personal items Clothing : Common streetwear Clothing Disposition : Bedside Personal Device Disposition : Bedside Personal Devices : Glasses Personal Items : Cell phone Personal Items Disposition : Bedside Ludivina Tompkins RN-PATIENT CARE BEDSIDE NON-EXEMPT - 02/13/2021 10:47 EDT Electronically signed by Gayle Finnegan Conversion Edge Cutting Machine Operator Cerner at 02/04/2023 2:06 PM CDT documented in this encounter Plan of Treatment Not on file documented as of this encounter Visit Diagnoses Not on filedocumented in this encounter Care Teams Pharmacy Clinical Specialist Relationship Specialty Start Date End Date Jay Howell MD [address] [place] [phone] PCP - General Emergency Medicine 11/12/23 documented as of this encounter
--- OUTSIDE RECORDS SUMMARY | 2025-07-12 08:51 | XMS_ITS | Encounter Summary ---
Author Organization [facility] Address [address] [place] [address] Care Team Providers Care Stock Worker And Deliverer Name Role Phone Jay Howell MD Primary Care Provider Encounter Details Date Type Department Care Team (Late st Contact Info) Description 01/20/2024 Ophth Exam [facility] [address] [place] [address] Joselito Garza MD [address] [place] [address] Social History Tobacco Use Types Packs/Day Years Used Date Smoking Tobacco: Former Cigarettes 1991 Passive Smoke Exposure: Past Smokeless Tobacco: Never Alcohol Use Standard Drinks/Week Comments No 0 (1 standard drink = 0.6 oz pur e alcohol) Humiliation, Afraid, Rape, and Kick questionnair e Answer Date Recorded Within the last year, have y ou been afraid of your partner or ex-partner? No 01/23/2024 Within the last year, have y ou been humiliated or emotionally abused in other ways by your partner or ex-partner? No Within the last year, have y ou been kicked, hit, slapped, or otherwise physically hurt by your partner or ex-partner? No 01/23/2024 Within the last year, have y ou been raped or forced to have any kind of sexual activity by your partner or ex-partner? No 01/23/2024 PHQ-2 Answer Date Recorded Patient Health Questionnaire-2 Score 0 11/23/2021 Hunger Vital Sign Answer Date Recorded Within the past 12 months, y ou worried that your food would run out before you got the money to buy more. Never true 01/23/20 24 Within the past 12 months, t he food you bought just didn't last and you didn't have money to get more. Never true 01/23/2024 PRAPARE - Transportation Answer Date Re corded In the past 12 months, has l ack of transportation kept you from medical appointments or from getting medications? No 05/2024 In the past 12 months, has l ack of transportation kept you from meetings, work, or from getting things needed for daily living? No 01/23/2024 Housing Stability Vital Sign Answer Chito e Recorded In the last 12 months, was t here a time when you were not able to pay the mortgage or rent on time? No 01/23/2024 In the last 12 months, how many places have you lived? 1 01/23/2024 In the last 12 months, was t here a time when you did not have a steady place to sleep or slept in a senior care (including now)? No 01/23/2024 CAGE ASSESSMENT Answer Date Recorded Cage unable to access Not on file 01/21/2024 Cage max number of drinks Not on file 2023 Cage Beverages a week Not on file 01/21/2024 Have you ever felt you should CUT down on your d rinking? 0 01/21/2024 Have you been ANNOYED by people criticizing your drinking? 0 01/21/2024 Have you felt GUILTY about your drinking? 0 01/21/2024 Have you had a drink first t kathleen in the morning (EYE-TELEPHONE SOLICITOR SUPERVISOR) to steady your nerves or to get rid of a hangover? 0 01/21/2024 CAGE Questionnaire Score 0 024 Utilities Answer Date Recorded In the past 12 months has th e [employer], gas, oil, or water company threatened to shut off services in your home? No 01/23/2024 Comments No Sex and Gender Information Value Date Recorded Sex Assigned at Female 03/08/2024 4:53 AM EDT Legal Sex Female 8:23 PM EDT Gender Identity Female 03/08/2024 4:53 AM EDT Sexual Orientation Straight 03/08/2024 4: 53 AM EDT documented as of this encounter Functional Status * Calculated C-SSRS Risk Score (Lifetime/Recent) Answer Date of Assessment Author No Risk Indicated 01/23/2024 8:00 PM EDT Cammy Wilson RN * Question Answer Date of Assessment Author 1. Wish to be (Past 1 Month) No 024 8:00 PM EDT Cammy Garcia RN 2. Non-Specific Active Suici alberto Thoughts (Past 1 Month) No 01/23/2024 8:00 PM EDT Laura Garcia ra, RN 6. Suicidal Behavior (Lifetime) No 8:00 PM EDT Cammy Garcia RN documented as of this encounter Plan of Treatment Not on file documented as of this encounter Visit Diagnoses Not on filedocumented in this encounter Additional Health Concerns Assessment Noted Time A fall risk assessment has been complete d for the patient 12/20/2023 2:07 PM EST A Body Mass Index follow-up plan has been documented for the patient 01/26/2024 12:51 PM EDT documented as of this encounter Care Teams Stock Worker And Deliverer Relationship Specialty Start Date End Date Jay Howell MD [address] [address] PCP - General 03/08/21 documented as of this encounter
--- OUTSIDE RECORDS SUMMARY | 2025-07-12 08:51 | XMS_ITS | Encounter Summary ---
Author Organization [employer] ([place], [place], [place], [place]) Address [address] [place] [address] Care Team Providers Care Matte Cutter Name Role Phone Jay Howell MD Primary Care Provider [phone] Encounter Details Date Type Department Care Team (Late st Contact Info) Description 03/03/2021 Transcribed Document [facility] [place] Family Medicine [address] [place] [address] ProviderJessie MD [address] [place] [address] Social History Tobacco Use Types Packs/Day Years Used Date Smoking Tobacco: Never Assessed Comments Unknown Sex and Gender Information Value Date Recorded Sex Assigned at Not on file Legal Sex Female 7:30 PM CDT Gender Identity Not on file Sexual Orientation Not on file documented as of this encounter Miscellaneous Notes * Cerner Conversion Note - Historical ProviderMD - 03/03/2021 3:59 PM CDT [place] Suicide Severity Rating Scale (C-SSRS) Entered On: 03/03/2021 16:25 EDT Performed On: 03/03/2021 16:24 EDT by Marek Sanford Rn [place] Suicide Severity Rating Scale (C-SSRS) CSSRS Past Month Wish to be : No CSSRS Past Month Suicidal Thoughts : No CSSRS Lifetime Suicide Behavior : No Suicide Severity Rating Score : 0 Suicide Severity Rating : No Additional Care Required at this time Marek Sanford Rn - 03/03/2021 16:24 EDT documented in this encounter Plan of Treatment Not on file documented as of this encounter Visit Diagnoses Not on filedocumented in this encounter Care Teams Matte Cutter Relationship Specialty Start Date End Date Jay Howell MD [address] [place] [phone] PCP - General Emergency Medicine 11/12/23 documented as of this encounter
--- OUTSIDE RECORDS SUMMARY | 2025-07-12 08:51 | XMS_ITS | Encounter Summary ---
Author Organization [employer] ([place], [place], [place], [place]) Address [address] [place] [address] Care Team Providers Care Bog Cutter Name Role Phone Jay Howell MD Primary Care Provider [phone] Encounter Details Date Type Department Care Team (Late st Contact Info) Description 08/22/2020 Transcribed Document [facility] [place] [address] [place] [address] ProviderJessie MD [address] [place] [address] Social History Tobacco Use Types Packs/Day Years Used Date Smoking Tobacco: Never Assessed Comments Unknown Sex and Gender Information Value Date Recorded Sex Assigned at Not on file Legal Sex Female 7:30 PM CDT Gender Identity Not on file Sexual Orientation Not on file documented as of this encounter Miscellaneous Notes * Cerner Conversion Note - Jessie Yuen MD - 08/22/2020 8:49 PM MOTOR VEHICLE EXAMINER ED Triage Entered On: 08/22/2020 20:57 EST Performed On: 08/22/2020 20:52 EST by LUCINDA FOFANA RN ED Triage Across the Room Chief Complaint : c/o LLE pain/ swelling. felll last week, seen by pcp and [facility] 3 times this week for same. fracture advised, not wearing walking boot as prescribed. on coumadin. Triage Date/Time : 08/22/2020 20:52 EST LUCINDA FOFANA RN - 08/22/2020 20:52 EST DCP GENERIC CODE Tracking Acuity : 3 - Urgent Tracking Group : [facility] ED LUCINDA FOFANA RN - 08/22/2020 20:52 EST Mode of Arrival : Ambulatory Transported to ED by : Private vehicle To Room Via : Ambulate Accompanied By : Unaccompanied ED Vital Signs : Document Height & Weight : Document ED Allergies : Document ED Reason for Visit : Document Tetanus Immunization : Less than 5 years LUCINDA FOFANA RN - 08/22/2020 20:52 EST Infectious Disease History Has the patient [...] pox/Shingles, Measles, Mumps Tuberculosis Symptoms : None LUCINDA FOFANA RN - 08/22/2020 20:52 EST Vital Signs ED Temperature Mode : Fahrenheit Temperature, Fahrenheit : 99.1 Deg F Clinical Temperature, C : 37.3 Deg C Oxygen Therapy Mode : Room air Peripheral Pulse Rate : 76 bpm Respiratory Rate : 17 Breaths/Min Systolic Blood Pressure : 224 mmHg (HI) Diastolic Blood Pressure : 103 mmHg (HI) Oxygen Saturation : 96 % LUCINDA FOFANA RN - 08/22/2020 20:52 EST Allergy (As Of: 08/22/2020 20:57:39 EST) Allergies (Active) Macrodantin Estimated Onset Date: Unspecified ; Created By: KENYON CHAMBERS RN; Reaction Status: Active ; Category: Drug ; Substance: Macrodantin ; Type: Allergy ; Updated By: KENYON CHAMBERS RN; Reviewed Date: 08/22/2020 20:53 EST morphine Estimated Onset Date: Unspecified ; Reactions: rash, rash ; Created By: Contributormargot HISTDAXA; Reaction Status: Active ; Category: Drug ; Substance: morphine ; Type: Allergy ; Updated By: AUSTIN Nuñez; Reviewed Date: 08/22/2020 20:53 EST nitrofurantoin Estimated Onset Date: Unspecified ; Reactions: blisters, blisters ; Created By: Joaquin HISTDAXA; Reaction Status: Active ; Category: Drug ; Substance: nitrofurantoin ; Type: Allergy ; Updated By: Contributor_system, LAURYN_FELIX; Reviewed Date: 08/22/2020 20:53 EST Diagnosis Control ED (As Of: 08/22/2020 20:57:39 EST) Problems(Active) Apnea, sleep (SNOMED CT :928438369 ) Name of Problem: Apnea, sleep ; Recorder: JUAN LUIS GIL RN; Confirmation: Confirmed ; Classification: Medical ; Code: [id number] ; Contributor System: PowerChart ; Last Updated: 11/12/2014 10:12 EST ; Life Cycle Date: 11/12/2014 ; Life Cycle Status: Active ; Vocabulary: SNOMED CT Arthritis (SNOMED CT :5869110 ) Name of Problem: Arthritis ; Recorder: KENYON CHAMBERS RN; Confirmation: Confirmed ; Classification: Medical ; Code: [id number] ; Contributor System: PowerChart ; Last Updated: 04/10/2016 8:04 EDT ; Life Cycle Date: 08/13/2013 ; Life Cycle Status: Active ; Vocabulary: SNOMED CT Atrial fibrillation with RVR (SNOMED CT :2160464553 ) Name of Problem: Atrial fibrillation with RVR ; Recorder: SANG RICO APRN; Confirmation: Confirmed ; Classification: Medical ; Code: [id number] ; Contributor System: PowerChart ; Last Updated: 04/10/2016 8:05 EDT ; Life Cycle Date: 04/10/2016 ; Life Cycle Status: Active ; Responsible Provider: SANG RICO APRN; Vocabulary: SNOMED CT Blood clot (SNOMED CT :684619787 ) Name of Problem: Blood clot ; Recorder: KENYON CHAMBERS RN; Confirmation: Confirmed ; Classification: Patient Stated ; Code: [id number] ; Contributor System: PowerChart ; Last Updated: [...] Vocabulary: Patient Care Chest pain (SNOMED CT :25643431 ) Name of Problem: Chest pain ; Recorder: SANG RICO APRN; Confirmation: Complaint of ; Classification: Medical ; Code: 78240898 ; Contributor System: PowerChart ; Last Updated: 04/10/2016 8:05 EDT ; Life Cycle Status: Active ; Responsible Provider: SANG RICO APRN; Vocabulary: SNOMED CT Chronic anticoagulation (SNOMED CT :226890540 ) Name of Problem: Chronic anticoagulation ; Recorder: SANG RICO APRN; Confirmation: Confirmed ; Classification: Medical ; Code: [id number] ; Contributor System: PowerChart ; Last Updated: 04/10/2016 8:05 EDT ; Life Cycle Date: 04/10/2016 ; Life Cycle Status: Active ; Responsible Provider: SANG RICO APRN; Vocabulary: SNOMED CT Clotting disorder (SNOMED CT :213959872 ) Name of Problem: Clotting disorder ; Recorder: KENYON CHAMBERS RN; Confirmation: Confirmed ; Classification: Patient Stated ; Code: 542576248 ; Contributor System: PowerChart ; Last Updated: 03/28/2014 19:29 EDT ; Life Cycle Date: 08/13/2013 ; Life Cycle Status: Active ; Vocabulary: SNOMED CT COPD (SNOMED CT :66741199 ) Name of Problem: COPD ; Recorder: KENYON CHAMBERS RN; Confirmation: Confirmed ; Classification: Medical ; Code: 67759359 ; Contributor System: Little QuestChart ; Last Updated: 04/10/2016 8:03 EDT ; Life Cycle Date: 08/13/2013 ; Life Cycle Status: Active ; Vocabulary: SNOMED CT Coronary artery disease (SNOMED CT :5488309340 ) Name of Problem: Coronary artery disease ; Recorder: KENYON CHAMBERS RN; Confirmation: Confirmed ; Classification: Medical ; Code: [id number] ; Contributor System: PowerChart ; Last Updated: 04/10/2016 8:03 EDT ; Life Cycle Date: 08/13/2013 ; Life Cycle Status: Active ; Vocabulary: SNOMED CT Diabetes mellitus (SNOMED CT :942208542 ) Name of Problem: Diabetes mellitus ; Recorder: KENYON CHAMBERS RN; Confirmation: Confirmed ; Classification: Medical ; Code: 100940545 ; Contributor System: PowerChart ; Last Updated: 04/10/2016 8:04 EDT ; Life Cycle Date: 08/13/2013 ; Life Cycle Status: Active ; Vocabulary: SNOMED CT Emphysema (SNOMED CT :992595435 ) Name of Problem: Emphysema ; Recorder: JUAN LUIS GIL RN; Confirmation: Confirmed ; Classification: Medical ; Code: 207234412 ; Contributor System: PowerChart ; Last Updated: 11/12/2014 10:11 EST ; Life Cycle Date: 11/12/2014 ; Life Cycle Status: Active ; Vocabulary: SNOMED CT GERD - Gastro-esophageal reflux disease (SNOMED CT :0172740984 ) Name of Problem: GERD - Gastro-esophageal reflux disease ; Recorder: KENYON CHAMBERS RN; Confirmation: Confirmed ; Classification: Medical ; Code: [id number] ; Contributor System: Little QuestChart ; Last Updated: 04/10/2016 8:03 EDT ; [...] Patient Care High blood pressure (SNOMED CT :47836333 ) Name of Problem: High blood pressure ; Recorder: KENYON CHAMBERS RN; Confirmation: Confirmed ; Classification: Medical ; Code: 86638260 ; Contributor System: PowerChart ; Last Updated: 04/10/2016 8:03 EDT ; Life Cycle Date: 08/13/2013 ; Life Cycle Status: Active ; Vocabulary: SNOMED CT History of obstructive sleep apnea (IMO :92344806 ) Name of Problem: History of obstructive sleep apnea ; Recorder: SYSTEM, SYSTEM; Confirmation: Confirmed ; Classification: Medical ; Code: 33669561 ; Last Updated: 12/20/2018 12:01 EST ; Life Cycle Date: 12/20/2018 ; Life Cycle Status: Active ; Vocabulary: IMO Hx of pulmonary embolus (SNOMED CT :025186623 ) Name of Problem: Hx of pulmonary embolus ; Recorder: SANG RICO APRN; Confirmation: Confirmed ; Classification: Medical ; Code: 294490659 ; Contributor System: Little QuestChart ; Last Updated: 04/10/2016 8:05 EDT ; Life Cycle Date: 04/10/2016 ; Life Cycle Status: Active ; Responsible Provider: SANG RICO APRN; Vocabulary: SNOMED CT Hyperlipidemia (SNOMED CT :91219765 ) Name of Problem: Hyperlipidemia ; Recorder: KENYON CHAMBERS RN; Confirmation: Confirmed ; Classification: Medical ; Code: 93627366 ; Contributor System: Little QuestChart ; Last Updated: 04/10/2016 8:03 EDT ; Life Cycle Date: 08/13/2013 ; Life Cycle Status: Active ; Vocabulary: SNOMED CT Multiple renal cysts (SNOMED CT :177400910 ) Name of Problem: Multiple renal cysts ; Recorder: KENYON CHAMBERS RN; Confirmation: Confirmed ; Classification: Medical ; Code: 008278032 ; Contributor System: Little QuestChart ; Last Updated: 04/10/2016 8:04 EDT ; Life Cycle Date: 08/13/2013 ; Life Cycle Status: Active ; Vocabulary: SNOMED CT Stented coronary artery (SNOMED CT :5823118338 ) Name of Problem: Stented coronary artery ; Recorder: KENYON CHAMBERS RN; Confirmation: Confirmed ; Classification: Medical ; Code: 3072830996 ; Contributor System: Little QuestChart ; Last Updated: 04/10/2016 8:03 EDT ; Life Cycle Date: 08/13/2013 ; Life Cycle Status: Active ; Vocabulary: SNOMED CT UTI - Urinary tract infection (SNOMED CT :2005469257 ) Name of Problem: UTI - Urinary tract infection ; Recorder: KENYON CHAMBERS RN; Confirmation: Confirmed ; Classification: Medical ; Code: 1462569016 ; Contributor System: Little QuestChart ; Last Updated: 04/10/2016 8:04 EDT ; Life Cycle Date: 08/13/2013 ; Life Cycle Status: Active ; Vocabulary: SNOMED CT Diagnoses(Active) Leg pain-swelling Date: 08/22/2020 ; Diagnosis Type: Reason For Visit ; Confirmation: Complaint of ; Clinical Dx: Leg pain-swelling ; Classification: Medical ; Clinical Service: Emergency medicine ; Code: PNED ; Probability: 0 ; Diagnosis Code: [id number] ED Height and Weight Height Source : Stated Height Entry Format : [place] Height, Feet : 5 ft(Converted to: 152 cm, 60 Inch) Height, Inches : 3 Inch(Converted to: 0 ft 3 Inch, 7.62 cm) Clinical Height : 160.02 cm Weight Source, ED : Critical estimated dosing weight Weight Entry Format : [place] Weight, Pounds : 154 lb Clinical Dosing Weight : 70 kg Body Surface Area (BSA) : 1.73 m2 Body Mass Index : 27.3 kg/m2 (HI) [place] Body Weight (IBW) : 52.02 kg LUCINDA FOFANA RN - 08/22/2020 20:52 EST Electronically signed by [facility], [facility] Conversion District Manager Postal Service Cerner at 02/04/2023 2:09 PM CDT documented in this encounter Plan of Treatment Not on file documented as of this encounter Visit Diagnoses Not on filedocumented in this encounter Care Teams Bog Cutter Relationship Specialty Start Date End Date Jay Howell MD [address] [place] [phone] PCP - General Emergency Medicine 11/12/23 documented as of this encounter
--- OUTSIDE RECORDS SUMMARY | 2025-07-12 08:51 | XMS_ITS | Encounter Summary ---
Author Organization [facility] ([place], [place], [place], [place]) Address [address] [place] [address] Care Team Providers Care Embossing Press Operator Apprentice Name Role Phone Jay Howell MD Primary Care Provider [phone] Encounter Details Date Type Department Care Team (Late st Contact Info) Description 03/04/2021 Transcribed Document [facility] [place] Family Medicine [address] [place] [address] ProviderJessie MD [address] [place] [id number] Social History Tobacco Use Types Packs/Day Years Used Date Smoking Tobacco: Never Assessed Comments Unknown Sex and Gender Information Value Date Recorded Sex Assigned at Not on file Legal Sex Female 7:30 PM CDT Gender Identity Not on file Sexual Orientation Not on file documented as of this encounter Miscellaneous Notes * Cerner Conversion Note - Historical ProviderMD - 03/04/2021 9:42 AM CDT CR Hip Uni Comp Min 2 Vws RT Ordered: 03/03/2021 Auth (Verified) Reason for Exam: PAIN 03/03/2021 16:57 03/04/2021 09:42 (EVELIN HIGHTOWER APRN) Reviewed by Provider, No further action required x1 03/04/2021 09:37 (ROBBY SANTAMARIA) Provider Review Required documented in this encounter Plan of Treatment Not on file documented as of this encounter Visit Diagnoses Not on filedocumented in this encounter Care Teams Embossing Press Operator Apprentice Relationship Specialty Start Date End Date Jay Howell MD [address] [place] [phone] PCP - General Emergency Medicine 11/12/23 documented as of this encounter
--- OUTSIDE RECORDS SUMMARY | 2025-07-12 08:51 | XMS_ITS | Encounter Summary ---
Author Organization [employer] ([place], [place], [place], [place]) Address [address] [place] [address] Care Team Providers Care Food Service Worker Hospital Name Role Phone Jay Howell MD Primary Care Provider [phone] Encounter Details Date Type Department Care Team (Late st Contact Info) Description 08/23/2020 Transcribed Document [facility] Family Medicine [address] [place] [address] ProviderJessie MD [address] [place] [address] Social History Tobacco Use Types Packs/Day Years Used Date Smoking Tobacco: Never Assessed Comments Unknown Sex and Gender Information Value Date Recorded Sex Assigned at Not on file Legal Sex Female 7:30 PM CDT Gender Identity Not on file Sexual Orientation Not on file documented as of this encounter Miscellaneous Notes * Cerner Conversion Note - Jessie Yuen MD - 08/23/2020 1:05 AM CLIENT SERVICES COORDINATOR [facility] [place], [place] [id number] SKYLER MONTOYA :1940 Visit Time:08/22/2020 Your Visit Summary Your Care Team Primary Provider: LO HALE MD-EMR Secondary Provider: Your Diagnosis Abscess of left leg Leg pain-swelling Medical Information You may obtain a [...] do next Follow-Up Appointments Follow Up with TARA CHEN When Within 2 to 3 days Comments THE PACKING CAN BE REMOVED ON TUESDAY. FOLLOWUP WITH WOUND CARE ON TUESDAY . RETURN FOR INCREASED PAIN, REDNESS, SWELLING Where: [address] [place] [address]- Business (1) Allergies Macrodantin morphine (rash, rash) nitrofurantoin (blisters, blisters) Immunizations This Visit No Immunizations Found Medications What How Much When Instructions Next Dose acetaminophen-hydrocodone ([place]on 7.5 mg-325 mg oral tablet) 1 Tablet(s) Oral Every 6 Hours as needed for as needed for pain Duration: 3 Day(s) Printed Prescription clindamycin (clindamycin 300 mg oral capsule) 1 Capsule(s) Oral Four Times A Day Duration: 7 Day(s) Printed Prescription mupirocin topical (Bactroban 2% topical ointment) 1 Application(s) Topical Three Times A Day Printed Prescription ALPRAZolam (Xanax 0.5 mg oral tablet) 1 Tablet(s) Oral At Bedtime as needed for for anxiety/sleep amLODIPine (Norvasc 10 mg oral tablet) 1 Tablet(s) Oral Every Day aspirin (aspirin 81 mg oral tablet) 1 Tablet(s) Oral Every Day atorvastatin (atorvastatin 80 mg oral tablet) 1 Tablet(s) Oral At Bedtime Duration: 30 Day(s) brimonidine-timolol ophthalmic (Combigan 0.2%-0.5% ophthalmic solution) 1 Drop(s) Eye Right Two Times A Day carvedilol (carvedilol 6.25 mg oral tablet) 1 Tablet(s) Oral Three Times A Day Duration: 30 Day(s) difluprednate ophthalmic (Durezol 0.05% ophthalmic emulsion) 1 Drop(s) Eye Right Four Times A Day dorzolamide ophthalmic (dorzolamide 2% ophthalmic solution) 1 Drop(s) Eyes Both Two Times A Day hydrALAZINE (hydrALAZINE 10 mg oral tablet) 1 Tablet(s) Oral Two Times A Day Duration: 30 Day(s) losartan (losartan 100 mg oral tablet) [...] oral tablet) 1.5 Tablet(s) Oral Tuesday, Tuesday The home medications listed are only as [...] This Visit (last charted value for your 08/22/2020 visit) Hematology 08/22/2020 11:17 PM WBC: 7.1 K/uL -- Normal range between ( 4.5 and 10.5 ) RBC: 3.50 Million/uL -- Normal range between ( 3.93 and 5.22 ) Hct: 33.8 % -- Normal range between ( 34.1 and 44.9 ) Hgb: 11.0 g/dL -- Normal range between ( 11.2 and 15.7 ) Platelet Count: 158 K/uL -- Normal range between ( 163 and 369 ) MCH: 31.4 pg -- Normal range between ( 25.6 and 32.2 ) MCHC: 32.5 Gram/dL -- Normal range between ( 32.2 and 36.5 ) MCV: 96.6 fL -- Normal range between ( 79.0 and 94.8 ) Slide Review: No Eos %: 2.1 % -- Normal range between ( 0.0 and 7.0 ) Armstrong #: 0.71 K/uL -- Normal range between ( 0.16 and 1.00 ) Eos #: 0.15 x10(3)/uL -- Normal range between ( 0.00 and 0.80 ) Armstrong %: 10.1 % -- Normal range between ( 3.0 and 9.0 ) Baso %: 0.4 % -- Normal range between ( 0.0 and 1.5 ) Baso #: 0.03 x10(3)/uL -- Normal range between ( 0.00 and 0.20 ) RDW: 13.3 % -- Normal range between ( 11.7 and 14.9 ) Neut %: 53.8 % -- Normal range between ( 34.0 and 71.0 ) Neut #: 3.80 K/uL -- Normal range between ( 1.56 and 6.13 ) Lymph %: 33.0 % -- Normal range between ( 19.3 and 53.1 ) Lymph #: 2.33 x10(3)/uL -- Normal range between ( 1.00 and 3.90 ) MPV: 9.8 fL -- Normal range between ( 9.4 and 12.4 ) IG#: 0.04 x10(3)/uL -- Normal range between ( 0.00 and 0.05 ) IG%: 0.60 % -- Normal range between ( 0.00 and 0.60 ) General Chemistry 08/22/2020 11:17 PM Creatinine Level: 0.80 mg/dL -- Normal range between ( 0.55 and 1.02 ) Sodium Level: 138 mmol/L -- Normal range between ( 136 and 146 ) Potassium Level: 4.1 mmol/L -- Normal range between ( 3.5 and 5.1 ) Chloride Level: 108 mmol/L -- Normal range between ( 102 and 112 ) Carbon Dioxide Level: 27 mmol/L -- Normal range between ( 21 and 32 ) Anion Gap: 7 -- Normal range between ( 9 and 20 ) Bun/Creatinine: 18.8 -- Normal range between ( 8.0 and 20.0 ) Calcium Level: 9.0 mg/dL -- Normal range between ( 8.4 and 10.1 ) eGFR : >60 mL/min/1.73m2 eGFR NonAfrican: >60 mL/min/1.73m2 Glucose Level: 113 mg/dL -- Normal range between ( 74 and 106 ) Blood Urea Nitrogen: 15 mg/dL -- Normal range between ( 7 and 22 ) Lactic Acid Level: 1.3 mmol/L -- Normal range between ( 0.4 and 2.0 ) Education Materials Incision and Drainage, Care After This sheet gives you information about how to care for yourself after your procedure. Your health care provider may also give you more specific instructions. If you have problems or questions, contact your health care provider. What can I expect after the procedure? After the procedure, it is common to have: ??? Pain or discomfort around the incision site. ??? Blood, fluid, or pus (drainage) from the incision. ??? Redness and firm skin around the incision site. Follow these instructions at home: Medicines ??? Take iogt-wpi-hzptiry and prescription medicines only as told by your health care provider. ??? If you were prescribed an antibiotic medicine, use or take it as told by your health care provider. Do not stop using the antibiotic even if you start to feel better. Wound care Follow instructions from your health care provider about how to take care of your wound. Make sure you: ??? Wash your hands with soap and water before and after you change your bandage (dressing). If soap and water are not available, use hand product safety expert. ??? Change your dressing and packing as told by your health care provider. ? If your dressing is dry or stuck when you try to remove it, moisten or wet the dressing with saline or water so that it can be removed without harming your skin or tissues. ? If your wound is packed, leave it in place until your health care provider tells you to remove it. To remove the packing, moisten or wet the packing with saline or water so that it can be removed without harming your skin or tissues. ??? Leave stitches (sutures), skin glue, or adhesive strips in place. These skin closures may need to stay in place for 2 weeks or longer. If adhesive strip edges start to loosen and curl up, you may trim the loose edges. Do not remove adhesive strips completely unless your health care provider tells you to do that. Check your wound every day for signs of infection. Check for: ??? More redness, swelling, or pain. ??? More fluid or blood. ??? Warmth. ??? Pus or a bad smell. If you were sent home with a drain tube in place, follow instructions from your health care provider about: ??? How to empty it. ??? How to care for it at home. General instructions ??? Rest the affected area. ??? Do not take baths, swim, or use a hot tub until your health care provider approves. Ask your health care provider if you may take showers. You may only be allowed to take sponge baths. ??? Return to your normal activities as told by your health care provider. Ask your health care provider what activities are safe for you. Your health care provider may put you on activity or lifting restrictions. ??? The incision will continue to drain. It is normal to have some clear or slightly bloody drainage. The amount of drainage should lessen each day. ??? Do not apply any creams, ointments, or liquids unless you have been told to by your health care provider. ??? Keep all follow-up visits as told by your health care provider. This is important. Contact a health care provider if: ??? Your cyst or abscess returns. ??? You have a fever or chills. ??? You have more redness, swelling, or pain around your incision. ??? You have more fluid or blood coming from your incision. ??? Your incision feels warm to the touch. ??? You have pus or a bad smell coming from your incision. ??? You have red streaks above or below the incision site. Get help right away if: ??? You have severe pain or bleeding. ??? You cannot eat or drink without vomiting. ??? You have decreased urine output. ??? You become short of breath. ??? You have chest pain. ??? You cough up blood. ??? The affected area becomes numb or starts to tingle. These symptoms may represent a serious problem that is an emergency. Do not wait to see if the symptoms will go away. Get medical help right away. Call your local emergency services (911 in the [place] Do not drive yourself to the hospital. Summary ??? After this procedure, it is common to have fluid, blood, or pus coming from the surgery site. ??? Follow all home care instructions. You will be told how to take care of your incision, how to check for infection, and how to take medicines. ??? If you were prescribed an antibiotic medicine, take it as told by your health care provider. Do not stop taking the antibiotic even if you start to feel better. ??? Contact a health care provider if you have increased redness, swelling, or pain around your incision. Get help right away if you have chest pain, you vomit, you cough up blood, or you have shortness of breath. ??? Keep all follow-up visits as told by your health care provider. This is important. This information is not intended to replace advice given to you by your health care provider. Make sure you discuss any questions you have with your health care provider. Document Released: 12/25/2012 Document Revised: 09/03/2019 Document Reviewed: 09/03/2019 [employer] Patient Education ?? 2020 [employer] Skin Abscess A skin abscess is an infected area on or under your skin that contains a collection of pus and other material. An abscess may also be called a furuncle, carbuncle, or boil. An abscess can occur in or on almost any part of your body. Some abscesses break open (rupture) on their own. Most continue to get worse unless they are treated. The infection can spread deeper into the body and eventually into your blood, which can make you feel ill. Treatment usually involves draining the abscess. What are the causes? An abscess occurs when germs, like bacteria, pass through your skin and cause an infection. This may be caused by: ??? A scrape or cut on your skin. ??? A puncture wound through your skin, including a needle injection or insect bite. ??? Blocked oil or sweat glands. ??? Blocked and infected hair follicles. ??? A cyst that forms beneath your skin (sebaceous cyst) and becomes infected. What increases the risk? This condition is more likely to develop in people who: ??? Have a weak body defense system (immune system). ??? Have diabetes. ??? Have dry and irritated skin. ??? Get frequent injections or use illegal IV drugs. ??? Have a foreign body in a wound, such as a splinter. ??? Have problems with their lymph system or veins. What are the signs or symptoms? Symptoms of this condition include: ??? A painful, firm bump under the skin. ??? A bump with pus at the top. This may break through the skin and drain. Other symptoms include: ??? Redness surrounding the abscess site. ??? Warmth. ??? Swelling of the lymph nodes (glands) near the abscess. ??? Tenderness. ??? A sore on the skin. How is this diagnosed? This condition may be diagnosed based on: ??? A physical exam. ??? Your medical history. ??? A sample of pus. This may be used to find out what is causing the infection. ??? Blood tests. ??? Imaging tests, such as an ultrasound, CT scan, or MRI. How is this treated? A small abscess that drains on its own may not need treatment. Treatment for larger abscesses may include: ??? Moist heat or heat pack applied to the area several times a day. ??? A procedure to drain the abscess (incision and drainage). ??? Antibiotic medicines. For a severe abscess, you may first get antibiotics through an IV and then change to antibiotics by mouth. Follow these instructions at home: Medicines ??? Take yjjd-dbe-wyxvhrn and prescription medicines only as told by your health care provider. ??? If you were prescribed an antibiotic medicine, take it as told by your health care provider. Do not stop taking the antibiotic even if you start to feel better. Abscess care ??? If you have an abscess that has not drained, apply heat to the affected area. Use the heat source that your health [...] have a greater risk of getting burned. ??? Follow instructions from your health care provider about how to take care of your abscess. Make sure you: ? Cover the abscess with a bandage (dressing). ? Change your dressing or gauze as told by your health care provider. ? Wash your hands with soap and water before you change the dressing or gauze. If soap and water are not available, use hand product safety expert. ??? Check your abscess every day for signs of a worsening infection. Check for: ? More redness, swelling, or pain. ? More fluid or blood. ? Warmth. ? More pus or a bad smell. General instructions ??? To avoid spreading the infection: ? Do not share personal care items, towels, or hot tubs with others. ? Avoid making skin contact with other people. ??? Keep all follow-up visits as told by your health care provider. This is important. Contact a health care provider if you have: ??? More redness, swelling, or pain around your abscess. ??? More fluid or blood coming from your abscess. ??? Warm skin around your abscess. ??? More pus or a bad smell coming from your abscess. ??? A fever. ??? Muscle aches. ??? Chills or a general ill feeling. Get help right away if you: ??? Have severe pain. ??? See red streaks on your skin spreading away from the abscess. Summary ??? A skin abscess is an infected area on or under your skin that contains a collection of pus and other material. ??? A small abscess that drains on its own may not need treatment. ??? Treatment for larger abscesses may include having a procedure to drain the abscess and taking an antibiotic. This information is not intended to replace advice given to you by your health care provider. Make sure you discuss any questions you have with your health care provider. Document Released: 07/13/2006 Document Revised: 01/24/2020 Document Reviewed: 11/16/2018 [employer] Patient Education ?? 2020 [employer]. Emergency Awareness and Preventative Care STROKE is [...] Assistance with quitting is available by contacting 8-105-QSGT-NOW. This is a free resource providing counseling, [...] including: emergency, radiology, or pathology physicians. Patient Name:MONTOYASKYLER I have received this information and was given the opportunity to ask questions. Patient/Development Manager Name: Patient/Development Manager Signature: Relationship to Patient: Clinician/Hospital Development Manager Signature: Please Provide a Telephone Number Where You Can Be Reached: Is it Permissible To Leave a Message? Date: documented in this encounter Plan of Treatment Not on file documented as of this encounter Visit Diagnoses Not on filedocumented in this encounter Care Teams Food Service Worker Hospital Relationship Specialty Start Date End Date Jay Howell MD [address] [place] [phone] PCP - General Emergency Medicine 11/12/23 documented as of this encounter
--- OUTSIDE RECORDS SUMMARY | 2025-07-12 08:51 | XMS_ITS | Encounter Summary ---
Author Organization [employer] ([place], [place], [place], [place]) Address [address] [place] [address] Care Team Providers Care Tail Puller Name Role Phone Jay Howell MD Primary Care Provider [phone] Encounter Details Date Type Department Care Team (Late st Contact Info) Description 08/22/2020 Transcribed Document [facility] Family Medicine [address] [place] [address] ProviderJessie MD [address] [place] [address] Social History Tobacco Use Types Packs/Day Years Used Date Smoking Tobacco: Never Assessed Comments Unknown Sex and Gender Information Value Date Recorded Sex Assigned at Not on file Legal Sex Female 7:30 PM CDT Gender Identity Not on file Sexual Orientation Not on file documented as of this encounter Miscellaneous Notes * Cerner Conversion Note - Historical ProviderMD - 08/22/2020 8:49 PM HIDE HOUSE SUPERVISOR [facility] Violence Assessment Entered On: 08/22/2020 23:10 EST Performed On: 08/22/2020 23:10 EST by Noy Miguel Beef Cattle Farmer Broset Violence Assessment Broset Violence Checklist of Symptoms : None Broset Violence Symptoms Subtotal : 0 Broset Violence Symptoms Indicator : Low risk (0) Noy Miguel Paramedic - 08/22/2020 23:10 EST Electronically signed by Sivan [facility] Conversion Parachute Harness Rigger Cerner at 02/04/2023 1:55 PM CDT documented in this encounter Plan of Treatment Not on file documented as of this encounter Visit Diagnoses Not on filedocumented in this encounter Care Teams Tail Puller Relationship Specialty Start Date End Date Jay Howell MD [address] [place] [phone] PCP - General Emergency Medicine 11/12/23 documented as of this encounter
--- OUTSIDE RECORDS SUMMARY | 2025-07-12 08:51 | XMS_ITS | Encounter Summary ---
Author Organization [employer] ([place], [place], [place], [place]) Address [address] [place] [address] Care Team Providers Care Automobile Racer Name Role Phone Jay Howell MD Primary Care Provider [phone] Encounter Details Date Type Department Care Team (Late st Contact Info) Description 12/21/2018 Transcribed Document [facility] [place] [facility] [place] [address] ProviderJessie MD [address] [place] [id number] Social History Tobacco Use Types Packs/Day Years Used Date Smoking Tobacco: Never Assessed Comments Unknown Sex and Gender Information Value Date Recorded Sex Assigned at Not on file Legal Sex Female 7:30 PM CDT Gender Identity Not on file Sexual Orientation Not on file documented as of this encounter Miscellaneous Notes * Cerner Conversion Note - Historical MD Alpa - 12/21/2018 7:18 AM HOME SALES CONSULTANT Patient: SKYLER MONTOYA Age: 77 years Sex: Female : 1940 Associated Diagnoses: None Author: FREDY PACHECO MD-CAR Subjective Chief complaint NAD. Health Status Current medications: (Selected) Inpatient Medications Ordered Combigan ophthalmic solution: 1 Drop, Eye Right, BID Diovan: 160 mg, Oral, Daily Normal Saline Flush: 5 mL, IV Push, See Comment, PRN: IV Use Plavix: 75 mg, Oral, Daily Ranexa: 500 mg, Oral, Daily Sodium Chloride 0.9% intravenous solution 500 mL: 100 mL/Hr, IntraVENous Sodium Chloride 0.9% intravenous solution 500 mL: Titrate, IntraVENous Theragran: 1 Tab, Oral, Daily Xanax: 0.25 mg, Oral, At Bedtime, PRN: Insomnia Xanax: 0.5 mg, Oral, At Bedtime, PRN: Anxiety acetaminophen-HYDROcodone 325 mg-5 mg oral tablet: 1 Tab, Oral, BID, PRN: Pain (Moderate 4-6) amLODIPine: 10 mg, Oral, Daily aspirin: 81 mg, Oral, Daily atorvastatin: 80 mg, Oral, At Bedtime carvedilol: 3.125 mg, Oral, BID dorzolamide 2% ophthalmic solution: 1 Drop, Eyes Both, BID durezol 0.05%: 1 Drop, Eye Right, QID hydrALAZINE: 10 mg, Oral, BID levETIRAcetam: 250 mg, Oral, BID metFORMIN: 500 mg, Oral, BID nitroglycerin: 0.3 mg, SubLINgual, Q5Min, PRN: Chest Pain pantoprazole: 40 mg, Oral, Daily Objective Intake and Output 24 hour intake: Total 240 ml 24 hour output: Total 850 ml VS/Measurements Vitals Signs (last 24 hrs) Last Charted Minimum Maximum Temp 97.5 (DEC 21 06:00) L 96.6 (DEC 20 19:00) 98.2 (DEC 20 23:30) Apical HR L 55 (DEC 20 21:37) L 55 (DEC 20 21:37) L 55 (DEC 20 21:37) Mon HR 55 (DEC 21 06:00) 48 (DEC 20 16:00) 75 (DEC 20 22:30) Resp Rate 16 (DEC 21 06:00) 16 (DEC 20 19:00) 20 (DEC 20 15:30) SBP H 144 (DEC 21 06:00) 95 (DEC 20 22:35) H 198 (DEC 20 21:30) DBP 66 (DEC 21 06:00) L 54 (DEC 20 21:15) H 124 (DEC 20 22:50) MAP 85 (DEC 21 06:00) 68 (DEC 20 22:35) 153 (DEC 20 22:30) SpO2 95 (DEC 21 06:00) L 92 (DEC 20 19:35) 99 (DEC 20 15:45) General: Alert and oriented, No acute distress. Eye: Pupils are equal, round and reactive to light, Normal conjunctiva, Vision unchanged. HENT: Normocephalic. Neck: Supple, Non-tender, No carotid bruit, No jugular venous distention. Respiratory: Lungs are clear to auscultation, Respirations are non-labored, Breath sounds are equal, Symmetrical chest wall expansion. Cardiovascular: Normal rate, Regular rhythm, No murmur, Good pulses equal in all extremities. Gastrointestinal: Soft, Non-distended, Normal bowel sounds. Musculoskeletal: Normal range of motion, Normal strength. Integumentary: Warm, Dry, [place]. Neurologic: Alert, Oriented. Psychiatric: Cooperative, Appropriate mood & affect. Results Review Telemetry DEC 21 04:17 140 110 10 / H 153 3.8 22 0.70 \ DEC 21 04:17 \ 11.5 / 7.2 L 150 / 35.7 \ [facility] 12/20/18; Dr. Fredy Pacheco TECHNIQUE: A 5/6-Australian sheath placed in the right femoral artery. Right iliac artery angiography was performed using a JR4 diagnostic catheter due to difficulty in advancing safety J-wire across the proximal right common iliac artery. Angiography revealed patent iliac artery with a kink proximally. There is no pressure gradient across the kink. The short 6-Australian sheath was switched out for a 25 cm 6-Australian Arrow sheath with the sheath tip into the abdominal aorta for angiography and percutaneous intervention. JL4, JR4 diagnostic catheters were used for selective angiography of the [place] vessels. JR4 diagnostic catheter was used for selective angiography of the bypass grafts. A 6-Australian pigtail catheter was advanced in the left ventricle, where pressures were measured. Left ventriculogram was not performed. Following the diagnostic catheterization, successful percutaneous intervention to the LAD was performed. No complications. HEMODYNAMICS: Left ventricle 140/20 mmHg. Aorta 140/90 mmHg. DIAGNOSES: 1. Three-vessel coronary artery disease. 2. Elevated left ventricular filling pressure without gradient across the aortic valve. 3. 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 4. Continued patency of saphenous venous graft to the lateral branch of the circumflex artery. 5. Continued patency of saphenous venous graft to the posterior descending artery. CORONARY ANATOMY: 1. Left main trunk: Mildly calcified. 2. LAD: Large caliber vessel, which gives rise to a small caliber first diagonal branch, small caliber second diagonal branch before extending to the apex. There is severe 70% stenotic lesion present in the mid LAD. There is continued patency of the bifurcating mid LAD and second diagonal branch stent. 3. Circumflex artery: Totally occluded proximally. There is a moderate caliber lateral branch, which is filled via the patent saphenous venous graft to the lateral branch of circumflex artery. 4. Right coronary artery: Dominant vessel. Totally occluded proximally. There is a long small caliber posterior descending artery and a long moderate caliber bifurcating posterolateral branches fill via the patent saphenous venous graft to the distal right coronary artery. 5. Left ventricle: Normal left ventricular filling pressure without gradient across the aortic valve. 6. PEARL bypass graft to the LAD: Atretic PEARL bypass graft which is nonfunctional. 7. Saphenous venous graft to the lateral branch of circumflex artery: Moderate caliber conduit with mild atherosclerosis and patent. 8. Saphenous venous graft to the posterior descending artery of the right coronary artery: Large caliber conduit with mild atherosclerosis and patent. IMPRESSION: Angiographically, the patient has severe three-vessel [...] brisk flow across the vessel. No complication. Patient received 180 mg of Brilinta and additional 162 mg of aspirin in the laboratory animal care veterinarian. She was given Aggrastat bolus. Patient received intracoronary nitroglycerin to optimize coronary vessel sizing. Impression and Plan IMPRESSION: Recurrent exertional angina . Reversible anterior ischemia, EF 68 - 70% by Lexiscan cardiolite 2-. s/p LHC with HARVINDER to LAD 12/20/18 CAD Remote Hx of CABG 1992 & LAD/Dx stent 2010. Paroxysmal Atrial Fibrillation with recent recurrent palpitations chronic coumadin HTN HLD Carotid artery stenosis s/p stent DMII DANTE PLAN; 12/21/18 Increase Amlodipine to 10 mg daily & hydralazine to 10 mg BID. Plavix 75 mg daily started. Restart coumadin in 3 days. Stop ASA in 1 month. Moderate cardiac risk for shoulder surgery after 3 months. Pt encouraged to discuss SGLT2 inh with primary MD. DC home today/follow with Dr. Dumas. 12/20/18 - Left Heart Catheterization via right femoral approach with possible percutaneous intervention with Dr. Fredy Pacheco. Risks and benefits discussed. Patient wishes to proceed. Hold Metformin per post cath protocol. Continue other current CV meds. Pt encouraged to discuss SGLT2 inh with primary MD. Resume coumadin days post cath. documented in this encounter Plan of Treatment Not on file documented as of this encounter Visit Diagnoses Not on filedocumented in this encounter Care Teams Automobile Racer Relationship Specialty Start Date End Date Jay Howell MD [address] [place] [phone] PCP - General Emergency Medicine 11/12/23 documented as of this encounter
--- OUTSIDE RECORDS SUMMARY | 2025-07-12 08:51 | XMS_ITS | Encounter Summary ---
Author Organization [employer] ([place], [place], [place], [place]) Address [address] [place] [address] Care Team Providers Care Leak Detector Name Role Phone Jay Howell MD Primary Care Provider [phone] Encounter Details Date Type Department Care Team (Late st Contact Info) Description 03/03/2021 Transcribed Document [facility] [place] [address] [place] [address] ProviderJessie MD [address] [place] [id number] Social History Tobacco Use Types Packs/Day Years Used Date Smoking Tobacco: Never Assessed Comments Unknown Sex and Gender Information Value Date Recorded Sex Assigned at Not on file Legal Sex Female 7:30 PM CDT Gender Identity Not on file Sexual Orientation Not on file documented as of this encounter Miscellaneous Notes * Cerner Conversion Note - Historical ProviderMD - 03/03/2021 3:59 PM CDT ED Triage Entered On: 03/03/2021 16:07 EDT Performed On: 03/03/2021 16:04 EDT by Viri Gonsales RN ED Triage Across the Room Chief Complaint : RT hip pain, no known injury. Hip replacement in 2008. Pain radiates down the entire leg. Triage Date/Time : 03/03/2021 16:04 EDT Viri Gonsales RN - 03/03/2021 16:04 EDT DCP GENERIC CODE Tracking Acuity : 4 - Non - Urgent Tracking Group : [facility] ED Viri Gonsales RN - 03/03/2021 16:04 EDT Mode of Arrival : Wheelchair Transported to ED by : Private vehicle To Room Via : Wheelchair Accompanied By : Unaccompanied ED Vital Signs : Document Height & Weight : Document ED Allergies : Document ED Reason for Visit : Document Tetanus Immunization : Less than 5 years Viri Gonsales RN - 03/03/2021 16:04 EDT Infectious Disease History Has the patient ever been tested for COVID-19? : No, Patient stated Does patient have symptoms of COVID-19? : No COVID19 Screening : No Experiencing Infectious Disease Symptoms : No symptoms Physical contact outside [place] in the last 30 days : No Infectious Disease History : Chicken pox/Shingles, Measles, Mumps Tuberculosis Symptoms : None Viri Gonsales RN - 03/03/2021 16:04 EDT Vital Signs ED Temperature Source : Oral Temperature Mode : Fahrenheit Temperature, Fahrenheit : 97.0 Deg F Clinical Temperature, C : 36.1 Deg C Oxygen Therapy Mode : Room air Peripheral Pulse Rate : 63 bpm Respiratory Rate : 18 Breaths/Min Systolic Blood Pressure : 136 mmHg Diastolic Blood Pressure : 88 mmHg Oxygen Saturation : 97 % Viri Gonsales RN - 03/03/2021 16:04 EDT Allergy (As Of: 03/03/2021 16:07:23 EDT) Allergies (Active) Macrodantin Estimated Onset Date: Unspecified ; Created By: KENYON CHAMBERS RN; Reaction Status: Active ; Category: Drug ; Substance: Macrodantin ; Type: Allergy ; Updated By: KENYON CHAMBERS RN; Reviewed Date: 03/03/2021 16:06 EDT morphine Estimated Onset Date: Unspecified ; Reactions: rash, rash ; Created By: CONTRIBUTOR_SYSTEM HIST_FELIX; Reaction Status: Active ; Category: Drug ; Substance: morphine ; Type: Allergy ; Updated By: TINY HIST_FELIX; Reviewed Date: 03/03/2021 16:06 EDT Diagnosis Control ED (As Of: 03/03/2021 16:07:23 EDT) Problems(Active) Apnea, sleep (SNOMED CT :774449772 ) Name of Problem: Apnea, sleep ; Recorder: JUAN LUIS GIL RN; Confirmation: Confirmed ; Classification: Medical ; Code: [id number] ; Contributor System: PowerChart ; Last Updated: 11/12/2014 10:12 EST ; Life Cycle Date: 11/12/2014 ; Life Cycle Status: Active ; Vocabulary: SNOMED CT Arthritis (SNOMED CT :2223652 ) Name of Problem: Arthritis ; Recorder: KENYON CHAMBERS RN; Confirmation: Confirmed ; Classification: Medical ; Code: 4022347 ; Contributor System: PowerChart ; Last Updated: 04/10/2016 8:04 EDT ; Life Cycle Date: 08/13/2013 ; Life Cycle Status: Active ; Vocabulary: SNOMED CT Atrial fibrillation with RVR (SNOMED CT :2480445269 ) Name of Problem: Atrial fibrillation with RVR ; Recorder: SANG RICO APRN; Confirmation: Confirmed ; Classification: Medical ; Code: [id number] ; Contributor System: PowerChart ; Last Updated: 04/10/2016 8:05 EDT ; Life Cycle Date: 04/10/2016 ; Life Cycle Status: Active ; Responsible Provider: SANG RICO APRN; Vocabulary: SNOMED CT Blood clot (SNOMED CT :514644473 ) Name of Problem: Blood clot ; Recorder: KENYON CHAMBERS RN; Confirmation: Confirmed ; Classification: Patient Stated ; Code: [id number] ; Contributor System: PowerChart ; Last Updated: [...] Vocabulary: Patient Care Chest pain (SNOMED CT :43424844 ) Name of Problem: Chest pain ; Recorder: SANG RICO APRN; Confirmation: Complaint of ; Classification: Medical ; Code: 60124146 ; Contributor System: PowerChart ; Last Updated: 04/10/2016 8:05 EDT ; Life Cycle Status: Active ; Responsible Provider: SANG RICO APRN; Vocabulary: SNOMED CT Chronic anticoagulation (SNOMED CT :218779870 ) Name of Problem: Chronic anticoagulation ; Recorder: SANG RICO APRN; Confirmation: Confirmed ; Classification: Medical ; Code: 235167456 ; Contributor System: PowerChart ; Last Updated: 04/10/2016 8:05 EDT ; Life Cycle Date: 04/10/2016 ; Life Cycle Status: Active ; Responsible Provider: SANG RICO APRN; Vocabulary: SNOMED CT Clotting disorder (SNOMED CT :257065208 ) Name of Problem: Clotting disorder ; Recorder: KENYON CHAMBERS RN; Confirmation: Confirmed ; Classification: Patient Stated ; Code: 540372297 ; Contributor System: PowerChart ; Last Updated: 03/28/2014 19:29 EDT ; Life Cycle Date: 08/13/2013 ; Life Cycle Status: Active ; Vocabulary: SNOMED CT COPD (SNOMED CT :12066805 ) Name of Problem: COPD ; Recorder: KENYON CHAMBERS RN; Confirmation: Confirmed ; Classification: Medical ; Code: 92575184 ; Contributor System: PowerChart ; Last Updated: 04/10/2016 8:03 EDT ; Life Cycle Date: 08/13/2013 ; Life Cycle Status: Active ; Vocabulary: SNOMED CT Coronary artery disease (SNOMED CT :2098412996 ) Name of Problem: Coronary artery disease ; Recorder: KENYON CHAMBERS RN; Confirmation: Confirmed ; Classification: Medical ; Code: 3579060999 ; Contributor System: PowerChart ; Last Updated: 04/10/2016 8:03 EDT ; Life Cycle Date: 08/13/2013 ; Life Cycle Status: Active ; Vocabulary: SNOMED CT Diabetes mellitus (SNOMED CT :292118983 ) Name of Problem: Diabetes mellitus ; Recorder: KENYON CHAMBERS RN; Confirmation: Confirmed ; Classification: Medical ; Code: 268328935 ; Contributor System: PowerChart ; Last Updated: 04/10/2016 8:04 EDT ; Life Cycle Date: 08/13/2013 ; Life Cycle Status: Active ; Vocabulary: SNOMED CT Emphysema (SNOMED CT :942408473 ) Name of Problem: Emphysema ; Recorder: JUAN LUIS GIL RN; Confirmation: Confirmed ; Classification: Medical ; Code: 569523337 ; Contributor System: PowerChart ; Last Updated: 11/12/2014 10:11 EST ; Life Cycle Date: 11/12/2014 ; Life Cycle Status: Active ; Vocabulary: SNOMED CT GERD - Gastro-esophageal reflux disease (SNOMED CT :7003118054 ) Name of Problem: GERD - Gastro-esophageal reflux disease ; Recorder: KENYON CHAMBERS RN; Confirmation: Confirmed ; Classification: Medical ; Code: 7050624207 ; Contributor System: PowerChart ; Last Updated: [...] Patient Care High blood pressure (SNOMED CT :37695577 ) Name of Problem: High blood pressure ; Recorder: KENYON CHAMBERS RN; Confirmation: Confirmed ; Classification: Medical ; Code: 86182908 ; Contributor System: PowerChart ; Last Updated: 04/10/2016 8:03 EDT ; Life Cycle Date: 08/13/2013 ; Life Cycle Status: Active ; Vocabulary: SNOMED CT History of obstructive sleep apnea (IMO :68375156 ) Name of Problem: History of obstructive sleep apnea ; Recorder: SYSTEM, SYSTEM; Confirmation: Confirmed ; Classification: Medical ; Code: 19716336 ; Last Updated: 08/25/2020 18:21 EST ; Life Cycle Date: 08/25/2020 ; Life Cycle Status: Active ; Vocabulary: IMO Hx of pulmonary embolus (SNOMED CT :112160255 ) Name of Problem: Hx of pulmonary embolus ; Recorder: SANG RICO APRN; Confirmation: Confirmed ; Classification: Medical ; Code: 181465899 ; Contributor System: PowerChart ; Last Updated: 04/10/2016 8:05 EDT ; Life Cycle Date: 04/10/2016 ; Life Cycle Status: Active ; Responsible Provider: SANG RICO APRN; Vocabulary: SNOMED CT Hyperlipidemia (SNOMED CT :41418013 ) Name of Problem: Hyperlipidemia ; Recorder: KENYON CHAMBERS RN; Confirmation: Confirmed ; Classification: Medical ; Code: 07355784 ; Contributor System: FanattacChart ; Last Updated: 04/10/2016 8:03 EDT ; Life Cycle Date: 08/13/2013 ; Life Cycle Status: Active ; Vocabulary: SNOMED CT Multiple renal cysts (SNOMED CT :380473082 ) Name of Problem: Multiple renal cysts ; Recorder: KENYON CHAMBERS RN; Confirmation: Confirmed ; Classification: Medical ; Code: 237818158 ; Contributor System: FanattacChart ; Last Updated: 04/10/2016 8:04 EDT ; Life Cycle Date: 08/13/2013 ; Life Cycle Status: Active ; Vocabulary: SNOMED CT Stented coronary artery (SNOMED CT :3773686052 ) Name of Problem: Stented coronary artery ; Recorder: KENYON CHAMBERS RN; Confirmation: Confirmed ; Classification: Medical ; Code: 1268924765 ; Contributor System: FanattacChart ; Last Updated: 04/10/2016 8:03 EDT ; Life Cycle Date: 08/13/2013 ; Life Cycle Status: Active ; Vocabulary: SNOMED CT Diagnoses(Active) Hip pain-swelling Date: 03/03/2021 ; Diagnosis Type: Reason For Visit ; Confirmation: Complaint of ; Clinical Dx: Hip pain-swelling ; Classification: Medical ; Clinical Service: Emergency medicine ; Code: PNED ; Probability: 0 ; Diagnosis Code: [id number] ED Height and Weight Height Source : Stated Height Entry Format : Boyd Height, Feet : 5 ft(Converted to: 152 cm, 60 Inch) Height, Inches : 3 Inch(Converted to: 0 ft 3 Inch, 7.62 cm) Clinical Height : 160.02 cm Weight Source, ED : Critical estimated dosing weight Weight Entry Format : Boyd Weight, Pounds : 154 lb Clinical Dosing Weight : 70 kg Body Surface Area (BSA) : 1.73 m2 Body Mass Index : 27.3 kg/m2 ([place]) [place] Body Weight (IBW) : 52.02 kg Viri Gonsales RN - 03/03/2021 16:04 EDT documented in this encounter Plan of Treatment Not on file documented as of this encounter Visit Diagnoses Not on filedocumented in this encounter Care Teams Leak Detector Relationship Specialty Start Date End Date Jay Howell MD [address] [place] [phone] PCP - General Emergency Medicine 11/12/23 documented as of this encounter
--- OUTSIDE RECORDS SUMMARY | 2025-07-12 08:51 | XMS_ITS | Encounter Summary ---
Author Organization [employer] ([place], [place], [place], [place]) Address [address] [place] [address] Care Team Providers Care Soils Analyst Name Role Phone Jay Howell MD Primary Care Provider [phone] Encounter Details Date Type Department Care Team (Late st Contact Info) Description 06/19/2020 Transcribed Document [facility] [place] [address] [place] [address] ProviderJessie MD [address] [place] [address] Social History Tobacco Use Types Packs/Day Years Used Date Smoking Tobacco: Never Assessed Comments Unknown Sex and Gender Information Value Date Recorded Sex Assigned at Not on file Legal Sex Female 7:30 PM CDT Gender Identity Not on file Sexual Orientation Not on file documented as of this encounter Miscellaneous Notes * Cerner Conversion Note - Jessie Yuen MD - 06/19/2020 12:12 PM CDT Patient Resource Center Entered On: 06/19/2020 12:14 EDT Performed On: 06/19/2020 12:12 EDT by Sri Kruse, Promotions Associate Patient Resource Center Provider Status : EST Other Established Provider Name : TARA MOELLER Patient Phone Number : [phone] Patient Insurance Type : Medicare Source of Referral : Case management Location of Patient : Case management referral Primary Care Scheduled : Yes Primary Care Scheduled Type : Non CMG Primary Care Provider Name : TARA MOELLER Primary Care Appointment Date/Time : 06/20/2020 15:00 EDT Specialty Care Scheduled : Already scheduled Specialty Type Scheduled1 : Cardiology Cardiology Provider Name : GABRIELLA ASENCIO Cardiology Appointment Date/Time : 06/18/2020 13:15 EDT Qualify for Diabetes and/or Nutrition Referral : No Wound Care Appointment Made : No Why Patient Visited ED- Specialty spent : Other How Patient Arrived at ED : Other Primary Language : [facility] Comment : Patient needs follow ups with PCP and Cardiology. Appointment already scheduled with Gabriella Asencio. I called and scheduled appointment with Dr. Tara Moeller and called patient with appointment. Follow Up Needed : No Sri Kruse, Promotions Associate - 06/19/2020 12:12 EDT Electronically signed by [facility] Conversion Mold Yard Worker Cerner at 02/04/2023 2:15 PM CDT documented in this encounter Plan of Treatment Not on file documented as of this encounter Visit Diagnoses Not on filedocumented in this encounter Care Teams Soils Analyst Relationship Specialty Start Date End Date Jay Howell MD [address] [place] [phone] PCP - General Emergency Medicine 11/12/23 documented as of this encounter
--- OUTSIDE RECORDS SUMMARY | 2025-07-12 08:51 | XMS_ITS | Encounter Summary ---
Author Organization [employer] ([place], [place], [place], [place]) Address [address] [place] [address] Care Team Providers Care Editing Intern Name Role Phone Jay Howell MD Primary Care Provider [phone] Encounter Details Date Type Department Care Team (Late st Contact Info) Description 02/13/2021 Transcribed Document [facility] [place] Family Medicine [address] [place] [address] ProviderJessie MD [address] [place], [place] [address] Social History Tobacco Use Types Packs/Day Years Used Date Smoking Tobacco: Never Assessed Comments Unknown Sex and Gender Information Value Date Recorded Sex Assigned at Not on file Legal Sex Female 7:30 PM CDT Gender Identity Not on file Sexual Orientation Not on file documented as of this encounter Miscellaneous Notes * Cerner Conversion Note - Jesise ProviderMD - 02/13/2021 11:43 AM CDT [facility] Endo PACU Summary Primary Physician: FABY GRIMM MD Finalized Date/Time: 02/13/21 12:32:03 Pt. Name: SKYLER MONTOYAO.B./Sex: 1940 Female Med Rec #: [id number] Physician: FABY GRIMM MD Financial #: [id number] Pt. Type: O Room/Bed: END/ Admit/Disch: 02/13/21 09:44:00 - Institution: [facility] Endo PACU Case Times Entry 1 In PACU I 02/13/21 12:07:00 Ready for PACU 02/13/21 12:31:00 Discharge Discharge from PACU 02/13/21 12:31:00 I Last Modified By: Roselia Urbano, Rn 02/13/21 12:32:01 Finalized By: Roselia Urbano, Rn Document Signatures Signed By: Roselia Urbano Rn 02/13/21 12:32 Electronically signed by Sivan [facility] Conversion Systems Engineering Manager Cerner at 02/04/2023 2:17 PM CDT documented in this encounter Plan of Treatment Not on file documented as of this encounter Visit Diagnoses Not on filedocumented in this encounter Care Teams Editing Intern Relationship Specialty Start Date End Date Jay Howell MD [address] [place] [phone] PCP - General Emergency Medicine 11/12/23 documented as of this encounter
--- OUTSIDE RECORDS SUMMARY | 2025-07-12 08:51 | XMS_ITS | Encounter Summary ---
Author Organization [employer] ([place], [place], [place], [place]) Address [address] [place] [address] Care Team Providers Care Developmental Writing Instructor Name Role Phone Jay Howell MD Primary Care Provider [phone] Encounter Details Date Type Department Care Team (Late st Contact Info) Description 02/13/2021 Transcribed Document [facility] [place] [address] [place] [address] ProviderJessie MD [address] [place], [place] [id number] Social History Tobacco Use Types Packs/Day Years Used Date Smoking Tobacco: Never Assessed Comments Unknown Sex and Gender Information Value Date Recorded Sex Assigned at Not on file Legal Sex Female 7:30 PM CDT Gender Identity Not on file Sexual Orientation Not on file documented as of this encounter Miscellaneous Notes * Cerner Conversion Note - Jessie Yuen MD - 02/13/2021 12:19 PM CDT [facility] [place] [address] SKYLER MONTOYA :1940 Visit Time:02/13/2021 What to do next Your Diagnosis Personal history of colonic polyps Unspecified abdominal pain Follow-Up Appointments Follow Up with FABY GRIMM MD When Only if needed Where: [address] [facility] [address] [place] [address]- Medications What How Much When Instructions Next Dose ALPRAZolam (Xanax 0.5 mg oral tablet) 1 [...] Tablet(s) Oral Every Day Duration: 5 Day(s) Take your medications faithfully. Do NOT skip [...] of unused and medications per pharmacy guidance. Education Materials Irritable Bowel Syndrome, Adult Irritable bowel syndrome [...] counseling. ??? Working with a diet and clinical implementation specialist (dietitian) to help create a food [...] for some people. General instructions ??? Take etfc-qvu-zopzucv and prescription medicines and supplements only as [...] alcohol, limit how much you have: ? 0???1 drink a day for women. ? 0???2 drinks a day for men. ??? Be aware of how much alcohol is in your drink. In the [place] one drink equals one typical bottle of beer (12 oz), one-half glass of wine (5 oz), or one shot of hard liquor (1?? oz). Contact a health care provider if [...] provider. Document Revised: 09/26/2018 Document Reviewed: 09/26/2018 [employer] Patient Education ?? 2020 [employer] Segura's Esophagus Segura's esophagus occurs when the [...] Tomatoes and foods made with tomatoes. ? [place] or spicy foods. ? Chocolate and peppermint. ??? Do not drink alcohol. General instructions ??? Take crzb-wxc-sfkcvnd and prescription medicines only as told by [...] provider. Document Revised: 01/29/2019 Document Reviewed: 01/29/2019 [employer] Patient Education ?? 2020 [employer] ESOPHAGOGASTRODUODENOSCOPY Care After Read the instructions outlined [...] call your doctor. HOME CARE INSTRUCTIONS: ACTIVITY: ??? You may resume your regular activity tomorrow, but move at a slower pace for the next 24 hours. ??? Take frequent rest periods for the next 24 hours. ??? Walking will help get rid of the air and reduce the bloated feeling in your belly (abdomen). ??? No driving for 24 hours because of the medication (sedation) used during the test. ??? You may shower. ??? Do not sign any important legal documents or operate any machinery for 24 hours (because of the sedation used during the test). NUTRITION: ??? Drink plenty of fluids. ??? You may resume your normal diet or as instructed by your doctor ??? Begin with a light meal and progress to your normal diet. Heavy or fried foods are harder to digest and may make you feel sick to your stomach (nauseated). ??? Avoid alcoholic beverages for 24 hours or as instructed. MEDICATIONS: ??? You may resume your normal medications unless your doctor tells you otherwise. WHAT TO EXPECT TODAY: ??? Some feelings of bloating in the abdomen. ??? Excessive burping today and passage of more gas than usual. ??? A sore throat can be normal. Use throat lozenges or gargle with warm salt water and drink plenty of fluids. FINDING OUT THE RESULTS OF YOUR TEST: ??? Not all test results are available during your visit. If you had biopsies or other tests done during your procedure, you can make an appointment with your doctor to get the results. Sometimes you may be instructed to call the doctor???s office for your results. It is important for you to follow up on all of your test results. SEEK IMMEDIATE MEDICAL CARE IF: ??? You cannot eat or drink. ??? You have worsening throat or chest pain. ??? You have dizziness, lightheadedness, or you faint. ??? You have severe nausea or vomiting. ??? You have a fever greater than 101. ??? You have chills. ??? You have severe abdominal pain or discomfort that gets worse throughout the day. ??? You have black, tarry, or bloody stools. [...] eating solid foods. General instructions ??? Take fnnm-avs-fqrgzju and prescription medicines only as told by [...] provider. Document Revised: 01/01/2019 Document Reviewed: 01/23/2017 [employer] Patient Education ?? 2020 [employer]. Gastritis, Adult Gastritis is inflammation of the [...] medicines. These include steroids, antibiotics, and some toaj-nfg-cpmghkj medicines, such as aspirin or ibuprofen. ??? [...] these instructions at home: Medicines ??? Take ofel-uft-yyuzuah and prescription medicines only as told by [...] alcohol: ? Limit your use to: ? 0???1 drink a day [...] 02/20/2019 Document Reviewed: 02/20/2019 [employer] Patient Education ?? 2020 [employer] Colonoscopy, Adult A colonoscopy is a [...] including vitamins, herbs, eye drops, creams, and yudz-fka-amlzqzh medicines. ??? Any problems you or family [...] dried fruit, raw fruits, and vegetables. ??? 1???3 days before the procedure: ? Eat only [...] tells you to take them. ??? Taking pvoa-vsj-tnnksrc medicines, vitamins, herbs, and supplements. General instructions [...] provider. Document Revised: 04/25/2020 Document Reviewed: 04/25/2020 [employer] Patient Education ?? 2020 [employer] Colon Polyps Polyps are tissue growths [...] ? Kaur syndrome. ? Turcot syndrome. ? Peutz???Jeghers syndrome. ??? Are overweight. ??? Smoke cigarettes. [...] alcohol, limit how much you have: ? 0???1 drink a day for women. ? 0???2 drinks a day for men. ??? Be aware of how much alcohol is in your drink. In the [place] one drink equals one 12 oz bottle of beer (355 mL), one 5 oz glass of wine (148 mL), or one 1?? oz shot of hard liquor (44 mL). [...] provider. Document Revised: 01/18/2019 Document Reviewed: 01/18/2019 [employer] Patient Education ?? 2020 [employer]. Emergency Awareness and Preventative Care STROKE is [...] Assistance with quitting is available by contacting 4-314-BYDZ-NOW. This is a free resource providing counseling, [...] This Visit (last charted value for your 02/13/2021 visit) General Chemistry 02/13/2021 11:00 AM Glucose POC2: 131 mg/dL -- Normal range between ( 70 and 110 ) Device Comment 1: Device Comment 1 Patient Name:SKYLER MONTOYA I have received this information and was given the opportunity to ask questions. Patient/Can Striper Name: Patient/Can Striper Signature: Relationship to Patient: Clinician/Hospital Can Striper Signature: Date: documented in this encounter Plan of Treatment Not on file documented as of this encounter Visit Diagnoses Not on filedocumented in this encounter Care Teams Developmental Writing Instructor Relationship Specialty Start Date End Date Jay Howell MD [address] [place] [phone] PCP - General Emergency Medicine 11/12/23 documented as of this encounter
--- OUTSIDE RECORDS SUMMARY | 2025-07-12 08:51 | XMS_ITS | Encounter Summary ---
Author Organization [employer] ([place], [place], [place], [place]) Address [address] [place] [address] Care Team Providers Care Plant Engineering Supervisor Name Role Phone Jay Howell MD Primary Care Provider [phone] Encounter Details Date Type Department Care Team (Late st Contact Info) Description 02/13/[address] [facility] [place] [address] [place] [address] ProviderJessie MD [address] [place], [place] [phone] Social History Tobacco Use Types Packs/Day Years Used Date Smoking Tobacco: Never Assessed Comments Unknown Sex and Gender Information Value Date Recorded Sex Assigned at Not on file Legal Sex Female 7:30 PM CDT Gender Identity Not on file Sexual Orientation Not on file documented as of this encounter Miscellaneous Notes * Cerner Conversion Note - Historical ProviderMD - 02/13/2021 11:30 AM CDT [facility] Saji PreOp Summary Primary Physician: FABY GRIMM MD Finalized Date/Time: 02/13/21 11:03:33 Pt. Name: SKYLER MONTOYAO.B./Sex: 1940 Female Med Rec #: [id number] Physician: FABY GRIMM MD Financial #: [id number] Pt. Type: O Room/Bed: END/ Admit/Disch: 02/13/21 09:44:00 - Institution: [facility] Endo PreOp Case Times Entry 1 In Preop 02/13/21 10:35:00 Ready for Holding n/a Room Patient Ready for n/a Surgery Patient Out of Preop 02/13/21 11:03:00 Patient Out of 02/13/21 11:03:00 Holding Room Last Modified By: Ludivina Tompkins RN-PATIENT CARE BEDSIDE NON-EXEMPT 02/13/21 11:03:27 Finalized By: Ludivina Tompkins RN-PATIENT CARE BEDSIDE NON-EXEMPT Document Signatures Signed By: Ludivina Tompkins RN-PATIENT CARE BEDSIDE NON-EXEMPT 02/13/21 11:03 documented in this encounter Plan of Treatment Not on file documented as of this encounter Visit Diagnoses Not on filedocumented in this encounter Care Teams Plant Engineering Supervisor Relationship Specialty Start Date End Date Jay Howell MD [address] [place] [phone] PCP - General Emergency Medicine 11/12/23 documented as of this encounter
--- OUTSIDE RECORDS SUMMARY | 2025-07-12 08:51 | XMS_ITS | Clinical Summary ---
Author Organization [facility] Address [address] [place] [address] Care Team Providers Care Winding Lathe Operator Name Role Phone Jay Howell MD Primary Care Provider [phone] Allergies Active Allergy Reactions Criticality Noted Date Comments Morphine And Codeine Other (See Comments),Unknown - Low Severity,Unknown (See Comments) Low 2014 Listed per [facility] MAR. Nitrofurantoin Unknown - Low Severity 11/08/2023 Nitrofurantoin Macrocrystal Rash Medium 07/21/2017 Medications Vitamin D, Cholecalciferol , 50 MCG (1999 UT) capsule Take by mouth Daily. Active dilTIAZem CD (CARDIZEM CD) 180 MG 24 hr capsule Take 1 capsule by mouth Daily. Active furosemide (LASIX) 40 MG tablet Take 1 tablet by mouth Daily As Needed (swelling). Active ferrous sulfate 325 (65 FE) MG tablet Take 1 tablet by mouth Daily With Breakfast. Active HYDROcodone-cuate taminophen (NORCO) 5-325 MG per tablet Take 1 tablet by mouth Every 6 (Six) Hours As Needed. Active potassium chloride (KLOR-CON M20) 20 MEQ CR tablet Take 1 tablet by mouth Daily. Active ALPRAZolam (XANAX) 0.5 MG tablet Take 1 tablet by mouth Daily. Active carvedilol (COREG) 6.25 MG tablet Take 1 tablet by mouth 2 (Two) Times a Day With Meals. Active vitamin B-12 (CYANOCOBALAMIN ) 1000 MCG tablet Take 1 tablet by mouth Daily. Active aspirin 81 MG EC tablet Take 1 tablet by mouth Daily. Active ranolazine (RANEXA) 500 MG 12 hr tabletIndicatio ns:Precordial chest pain Take 2 tablets by mouth Every Night. 30 tablet 11 07/09/2024 Active ranolazine (RANEXA) 1000 MG 12 hr tabletIndicatio ns:Precordial chest pain Take 1 tablet by mouth Daily. Take 1000mg in the morning and 500mg at night. 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 of anticoagulant Fatigue 03/14/2024 Atopic dermatitis 03/14/2024 Atrophic vaginitis 03/14/2024 Benign neoplasm of skin of back 03/14/2024 Cellulitis of umbilicus 03/14/2024 Cellulitis of upper limb 03/14/2024 Cervical spondylosis without myelopathy 03/14/20 Chronic diarrhea 03/14/2024 Increased frequency of urination 03/14/2024 Irritable bowel syndrome 03/14/2024 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 03/14/2024 DANTE (obstructive sleep apnea) 03/14/2024 Parotid sialolithiasis 03/14/2024 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 Temporal arteritis 03/14/2024 Steatosis of liver 03/14/2024 Dysuria 03/14/2024 Emphysema lung 01/22/2024 Overview (03/14/2024): Known history No supplemental O2 use at home 02@2L NC; Wean as able Fall 01/22/2024 Overview (03/14/2024): SGT admit Idiopathic osteoarthritis 01/22/2024 Overview (03/14/2024): -Incidental finding -Follow up with pcp for surveillance Liver nodule 01/22/2024 Overview (03/14/2024): Incidental finding Nodular contour of liver, suggestive of cirrhosis Outpatient management Splenic lesion 01/22/2024 Overview (03/14/2024): Multiple hypodense Incidental finding Outpatient management Thrombocytopenia 01/22/2024 Overview (03/14/2024): CTM Fall from steps 01/21/2024 Overview (03/14/2024): Admit to TICU Focal hemorrhagic contusion of cerebrum 01/21/20 Overview (03/14/2024): NSGY consulted - Repeat CTH revealed interval enlargement of left temporal hemorrhagic contusion - Repeat CTH 0500 pending - HOB elevated - Na goal 140-145 - Keppra 500 mg BID for 7 days (End 01/27/24) - s/p vitamin K, FFP, DDAVP for warfarin and ASA reversal - Hold warfarin and ASA for at least two weeks if possible (Resume 02/01) - OK for DVT ppx 24 hours after demonstration of stable hemorrhage Closed displaced fracture of proximal phalanx of left little finger 01/21/2024 Overview (03/14/2024): Plastic Hand Team Consulted L UGS placed after closed reduction Splint is to remain clean, dry, and in place until follow up Post reduction films WBAT through elbow Tdap booster per ED if indicated Please do not remove splint or get wet Patient expresses desire for non-operative management of the left small finger fracture Ortho Hand: Follow up on 02/01/24 @ 1:50 PM for management of left small finger fracture. Compartment syndrome 01/21/2024 Overview (03/14/2024): L orbital compartment syndrome - opthomology consulted - s/p lateral canthotomy IOP 27 -> 15 - IOP checks - sinus precautions - erythromycin ointment - ophtho: Follow up with outpatient ophthalmology/oculoplastics 02/24/24 @ 1:[address] Jonah Hernandez to review lid positioning after canthotomy. - ophtho: 03/20/24 1:[address] Chantelle Messina for 3-4 month IOP follow up TBI (traumatic brain injury) 01/21/2024 Overview (03/14/2024): IPH, SDH, SAH - Repeat CTH revealed interval enlargement of left temporal hemorrhagic contusion - Repeat CTH 0500 pending - HOB elevated - Na goal 140-145 - Keppra 500 mg BID for 7 days - s/p vitamin K, FFP, DDAVP for warfarin and ASA reversal - Hold warfarin and ASA for at least two weeks if possible - OK for DVT ppx 24 hours after demonstration of stable hemorrhage Primary open angle glaucoma (POAG) of both eyes, severe stage 11/26/2023 Pseudophakia of both eyes 11/26/2023 Chronic chest pain with high risk for CAD 2023 SOB (shortness of breath) 06/29/2023 Assessment & Plan (09/30/2023 4:13 PM EST): Stable SOA with activity. Assessment & Plan (06/29/2023 1:36 PM EDT): Acute onset of shortness of breath and left sided lung/rib pain that started 4 days ago. Patient feels like she may have a pulmonary embolism, the pain feels just like it did when she had a previous PE in 2010. She also has a history of antiphospholipid antibody syndrome and is on warfarin. - Stat CT of chest/PE protocol. Patient was [facility] to [facility] radiology department for CT scan today. - Check stat D-dimer. Low magnesium level 05/17/2023 Assessment & Plan (06/29/2023 1:37 PM EDT): Labs from 05/12/2023 revealed a magnesium level of 1.0. This could likely be contributing to patient's symptoms of weakness, dizziness and palpitations. Magnesium oxide 400 mg twice daily was started at last office visit 1 month ago. She is here today to recheck magnesium level. - Order sent with patient to the hospital to recheck magnesium - Continue magnesium oxide 400 mg twice daily. Assessment & Plan (05/17/2023 4:47 PM EDT): Labs from 05/12/2023 revealed a magnesium level of 1.0. This could likely be contributing to patient's symptoms of weakness, dizziness and palpitations. -Start magnesium oxide 400 mg twice daily - Recheck magnesium in 1 month at follow-up visit. Palpitations 04/28/2023 Assessment & Plan (09/30/2023 4:10 PM EST): Patient continues to c/o palpitations she has occasionally. She is to continue BB and CCB for HR control. Assessment & Plan (05/17/2023 4:37 PM EDT): Holter monitor from 04/28/2023 reveals a relatively benign monitor study. 3.8% PVC burden. Rare PVCs and rare nonsustained SVT. No atrial fibs relation noted. No life-threatening arrhythmias or pauses. BMP, magnesium and TSH labs reviewed. Magnesium was low at 1.0. - Magnesium oxide 400 mg twice daily. - Continue carvedilol at current dose. Assessment & Plan (05/02/2023 4:44 PM EDT): She reports that for more than a months she has been having complaints of her heart beating fast with activity. She even feels flips when she is at rest. She reports that this has been on and off. She reports she is having a sensation at the base of her neck when her heart rate is more than 100. She has a known history of paroxysmal atrial fibrillation. Plan further evaluation with labs including a BMP, TSH and magnesium level. Plan further evaluation with a 7-day heart monitor. Paroxysmal atrial fibrillation 04/28/2023 Assessment & Plan (05/17/2023 4:36 PM EDT): No atrial fibrillation noted on recent Holter monitor. She is on warfarin for anticoagulation that is managed by her primary care provider Dr. Howell. - Continue warfarin and carvedilol. Assessment & Plan (05/02/2023 4:48 PM EDT): Known history of paroxysmal atrial fibrillation. She is on beta-melinda carvedilol total of 12.5 mg twice a day for rate control. Suspect with her palpitations that she may not be in good rate control. She is on warfarin for anticoagulation and follows with Dr. Howell's office for her PT/INR. Plan a 7-day heart monitor for further evaluation as I suspect that her complaints of palpitation and fast heart rate may be her atrial fibrillation, possibly atrial for with RVR. Primary hypertension 04/28/2023 Assessment & Plan (06/29/2023 1:37 PM EDT): Hypertension is well controlled . Continue current treatment regimen. Blood pressure will be reassessed at the next regular appointment. Assessment & Plan (05/17/2023 4:21 PM EDT): Hypertension is well controlled . Continue current treatment regimen. Blood pressure will be reassessed at the next regular appointment. Assessment & Plan (05/02/2023 4:48 PM EDT): Pressure today 120/58. Her blood pressure is well controlled. She is on multiple medications to lower her blood pressure. Carotid stenosis, symptomatic w/o infarct, bilat eral 04/28/2023 Assessment & Plan (09/30/2023 4:14 PM EST): Dizziness causing fall in the bathroom after grabbing the towel rack. Recent carotid US showed 50-69% bilateral stenosis. Assessment & Plan (05/17/2023 4:40 PM EDT): Carotid duplex from 05/10/2023- bilateral carotid artery stenosis (50-69%). A referral to CT surgery was sent by Shannon Flor APRN at last office visit. She is scheduled to see Dr. Alcantara on 06/06/2023. Assessment & Plan (05/02/2023 4:51 PM EDT): Her last carotid duplex was May 13, 2022 and found to be moderate to severe. At this time she was referred for further evaluation to a cardiothoracic surgeon. She reports that she has not completed that appointment as she is not interested in surgery. She reports that she believes her heart is not strong enough for her to have any surgery. We discussed further options such as stenting and she did survive a heart catheterization November 2022 and was willing to have a stent if she needed it. She reports that she did not understand that she might have multiple options not just carotid endarterectomy surgery. She agrees that we may recheck her carotids and evaluate further if these are worsening or stable and she is willing to consider a new referral to a cardiovascular surgeon at [facility]. She reports she has seen Dr. Mickey Alcantara in the past. Coronary artery disease invo lving coronary bypass graft of deering heart without angina pectoris 04/28/2023 Assessment & Plan (09/30/2023 4:12 PM EST): She is on Statin, BB,CCB, ARB, ASA, Ranexa, and Warfarin. Continue current medication. Assessment & Plan (05/02/2023 5:03 PM EDT): She has a known history of coronary artery disease. She has denied any chest pain. Her last heart catheterization was November 25, 2022 at [facility] in [place] showing: -last [facility] 11/25/2022- A. CAD s/p CABG 2 of 3 grafts patent B. iFR of SVG to OM with results 0.98. No stenting. Recommendations: Continue medical management and risk factor modification She is on medical management; including beta-melinda, max dose of statin, Ranexa 500 mg twice a day. Anxiety 02/19/2019 Overview (03/14/2024): Home meds Insomnia 02/19/2019 Overview (03/14/2024): Outpatient management Diabetes mellitus, type 2 12/09/2015 Overview (04/25/2024): SSI CTM BG SSI CTM BG Secondary open-angle glaucoma of right eye, ileana re stage 12/09/2015 Difficult or painful urination 06/26/2015 Overview (03/14/2024): From Automated Load;Provider: Mike Velasquez;Status: Active Gastroesophageal reflux disease 09/30/2014 Overview (03/14/2024): Home meds Outpatient management Cervical disc disease 09/30/2014 Hyperlipidemia 09/30/2014 Overview (03/14/2024): Outpatient management Peripheral neuropathy 09/30/2014 Overview (03/14/2024): Continue outpatient management Resolved Problems Problem Noted Date Diagnosed Date Resolved Date Closed comminuted intertroch anteric fracture of proximal femur, right, initial encounter 03/20/2024 04/25/2024 Neck pain 03/14/2024 03/14/2024 Hematoma of left lower leg 03/14/2024 0 03/14/2024 Influenza due to influenza virus, type B 03/14/2024 03/14/2024 Unstable angina due to arter iosclerosis of coronary artery bypass graft 03/14/2024 03/14/2024 Headache 04/09/2016 03/14/2024 Overview (03/14/2024): From Automated Load;Provider: Leonardo Mccormack;Status: Active Encounters Date Type Department Care Team Description 07/02/2025 Telephone [facility] [address] [place] [address] Brenda Guerrier APRN JULIAN - MEDICAL RECORDS REQUEST 07/02/2025 Telephone [facility] [address] [place], [place] [phone] WAESPE - SCHEDULING REQUEST from Last 3 Months Immunizations Immunization Administration Dates Next Due FLUAD TRI 65YR+ 06/30/2020, 9,06/05/2019,07/27 Fluzone >6mos 06/18/2017,08/05/2016 Fluzone High-Dose 65+YRS 07/06/2021,06/18/2017 Fluzone High-Dose 65+yrs 07/06/2021,06/18/2017 Influenza Seasonal Injectable 09/17/2015, 014 Pneumococcal Conjugate 13-Va lent (PCV13) 07/26/2013 Pneumococcal Polysaccharide (PPSV23) 09/22/2017, 07/23/2010,09/28/2000 TD Preservative Free (Tenivac) 07/26/2011 Td (TDVAX) 07/07/2005 Tdap 01/20/2024 Family History Medical History Relation Name Comments Heart attack Brother X3 Cancer Child Cancer Father Coronary artery disease Father Prostate cancer Father Stroke Father Tuberculosis Father Cancer Mother Colon cancer Mother Heart disease Mother Rheum arthritis Mother Stroke Mother Diabetes Other Grandparent Coronary artery disease Sister X2 Stroke Sister X2 MINI Pancreatic cancer Son Relation Name Status Comments Brother X3 3 BROTHERS ALL DECEASED1- CVA2 - [place] Child Father (Age 71) Mother (Age 89) Other Grandparent Sister X2 1 SISTER LIVING 1 SISTER -OVARIANC ANCER Son (Age 49) Social History Tobacco Use Types Packs/Day Years Used Date Smoking Tobacco: Former Cigarettes 0.5 36 1 957 - 1992 Passive Smoke Exposure: Past Smokeless Tobacco: Never Tobacco Cessation:Counseling Given: Not Answered Alcohol Use Standard Drinks/Week Comments No 0 (1 standard drink = 0.6 oz pur e alcohol) Abuse Screen Answer Date Recorded Unsafe at Home or Work/School Not on file Feels Threatened by Someone? Not on file 06/2023 Does Anyone Keep You from Co ntacting Others or Doint Things Outside the Home? Not on file 07/25/2023 Physical Sign of Abuse Present Not on file 1 Housing Stability Answer Date Recorded Current Living Arrangements Not on file 06/2023 Potentially Unsafe Housing Conditions Not on adrianna e 07/25/2023 Family and Community Support Answer Chito e Recorded Help with Day-to-Day Activities Not on file 07/25/2023 Lonely or Isolated Not on file 07/25/2023 Employment Answer Date Recorded Do you want help finding or keeping work or a ambreen b? Not on file 07/25/2023 Disabilities Answer Date Recorded Concentrating, Remembering, or Making Decisions Difficulty Not on file 07/25/2023 Doing Errands Independently Difficulty Not on fi le 07/25/2023 Education Answer Date Recorded Help with school or training? 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 Not on file Not on adrianna e Last Filed Vital Signs Vital Sign Reading Time Taken Comments Blood Pressure 114/68 07/09/2024 2:06 PM EDT Pulse 79 07/09/2024 2:06 PM EDT Temperature 36.3 C (97.3 F) 06/06/2023 2:34 PM EDT Respiratory Rate - - Oxygen Saturation 99% 07/09/2024 2:06 PM EDT Inhaled Oxygen Concentration - - Weight 61.2 kg (135 lb) 07/09/2024 2:06 PM EDT Height 162.6 cm (5' 4 ) 07/09/2024 2:06 PM EDT Body Mass Index 23.17 07/09/2024 2:06 PM EDT Plan of Treatment Health Maintenance Due Date Last Done Comments DXA SCAN 1940 DIABETIC EYE EXAM 12/23/1950 DIABETIC FOOT EXAM 12/23/1950 URINE MICROALBUMIN-CREATININ E RATIO (uACR) 12/23/1950 ZOSTER VACCINE (1 of 2) 12/23/1989 RSV Vaccine - Adults (1 - 1- dose 75+ series) 12/23/2014 ANNUAL WELLNESS VISIT 07/21/2017 LIPID PANEL 03/09/2025 03/09/2024, 02/15, 11/26/2022, Additional history exists INFLUENZA VACCINE 05/17/2025 07/06/2021, , 06/30/2020, Additional history exists COVID-19 Vaccine (4 - 2024-2 6 season) 2025 12/09/2021, 02/17/2021, 01/27/2021 HEMOGLOBIN A1C 11/03/2025 05/03/2025, 06/0 01/2024, 03/20/2024, Additional history exists TDAP/TD VACCINES (4 - Td or Tdap) 01/19/2034 01/20/2024, 07/26/2011, 07/07/2005 Pneumococcal Vaccine 50+ Completed 017, 07/26/2013, 07/23/2010, Additional history exists Insurance MEDICARE A & B Care Teams Winding Lathe Operator Relationship Specialty Start Date End Date Jay Howell MD [address] [place] [address] PCP - General Emergency Medicine 04/28/23
--- OUTSIDE RECORDS SUMMARY | 2025-07-12 08:51 | XMS_ITS | Encounter Summary ---
Author Organization [employer] ([place], [place], [place], [place]) Address [address] [place] [address] Care Team Providers Care Acid Cutter Name Role Phone Jay Howell MD Primary Care Provider [phone] Encounter Details Date Type Department Care Team (Late st Contact Info) Description 06/14/2020 Transcribed Document [facility] [address] [place] [address] Cheyenne Flores MD [address] [place] [id number] Social History Tobacco Use Types Packs/Day Years Used Date Smoking Tobacco: Never Assessed Comments Unknown Sex and Gender Information Value Date Recorded Sex Assigned at Not on file Legal Sex Female 7:30 PM CDT Gender Identity Not on file Sexual Orientation Not on file documented as of this encounter Miscellaneous Notes * Cerner Conversion Note - Cheyenne Flores MD - 06/14/2020 9:06 AM EDT Patient: SKYLER MONTOYA Age: 79 Years Sex: Female : 1940 Admit Date 06/13/2020 15:07 Discharge Date 06/14/2020 Primary Care Provider TARA CHEN (REF), -MED Discharge Diagnosis Hypertensive urgency 06/12/2020 I16.0 ICD-10-CM Chest pain 06/12/2020 R07.9 ICD-10-CM Hospital Course This is an 79-year-old female with known [...] in bed, mild distress. Spouse at bedside. Hospitalization: htn urgency recently poorly controlled will order [...] follow glu and initiate if necessary hld Patient has been seen by cardiology and blood pressure medications slowly titrated up. WIll need follow up with cardiology on discharge for event recorder. Patient is feeling great this morning and able to ambulate without any issues. Blood pressure has been stable and will be discharged if ok with cardiology. ROS: denies chest pain, shortness of air, nausea, vomiting, fever Vital Signs T: 36.9 ??C TMIN: 36.8 ??C TMAX: 37 ??C HR: 72(Monitored) RR: 18 BP: 155/79 SpO2: 98% Oxygen Settings (Last) Oxygen Therapy Mode: Room air (06/13/20 20:41:00) Physical Exam General: Alert and oriented, No acute distress. Eye: Pupils are equal, round and reactive to light, Extraocular movements are intact. HENT: Normocephalic, Oral mucosa is moist. Respiratory: Lungs are clear to auscultation, Cardiovascular: Normal rate, Regular rhythm, No murmur. Gastrointestinal: Soft, Non-tender, Non-distended, Normal bowel sounds. Musculoskeletal: No swelling, No deformity. Discharge Disposition Home with Home Care Discharge Follow Up Follow up with specialist - Within 1 to 2 weeks Discharge Medications (15) Active aspirin 81 mg oral tablet 81 mg [...] 2 mg = 1 Tab, Oral, TuThFrSaSu Durezol 0.05% ophthalmic emulsion 1 Drop, Eye Right, QID hydrALAZINE 10 mg oral tablet 10 mg = 1 Tab, Oral, BID losartan 100 mg oral tablet 100 mg = 1 Tab, Oral, Daily metFORMIN 500 mg oral tablet, extended release 500 mg = 1 Tab, Oral, BID With Meals Multiple Vitamins oral tablet 1 Tab, Oral, Daily Norvasc 10 mg oral tablet 10 mg = 1 Tab, Oral, Daily omeprazole 40 mg oral delayed release capsule 40 mg = 1 Cap, Oral, Daily Ranexa 500 mg oral tablet, extended release 1,000 mg = 2 Tab, Oral, BID Xanax 0.5 mg oral tablet 0.5 mg = 1 Tab, PRN, Oral, At Bedtime Code Status Start: 06/13/20 0:28:00 EDT, Full Code, Continuous Order Condition on Discharge stable Consulting Physicians FREDY YAÑEZ MD-CAR (Cardiology) - chest pain CHETAN CLEANING MD-CAR Current Diet Order Diet, Adult - Ordered -- Start: 06/13/20 16:23:00 EDT, Cardiac Diet, 60 gm carbs:[id number] george, Isolation: Standard Precautions Pending Labs Ordered PT/INR Prothrombin Time Specimen Type: Blood, Anticoagulant: Yes warfarin, AM Draw collect, 06/14/20 4:00:00 EDT, Daily, Lab Collect Electronically signed by Sivan [facility] [employer]version [employer] Teacher Cerner at 02/04/2023 1:57 PM CDT documented in this encounter Plan of Treatment Not on file documented as of this encounter Visit Diagnoses Not on filedocumented in this encounter Care Teams Acid Cutter Relationship Specialty Start Date End Date Jay Howell MD [address] [place] [phone] PCP - General Emergency Medicine 11/12/23 documented as of this encounter
--- OUTSIDE RECORDS SUMMARY | 2025-07-12 08:51 | XMS_ITS | Encounter Summary ---
Author Organization [employer] ([place], [place], [place], [place]) Address [address] [place] [address] Care Team Providers Care Poleyard Supervisor Name Role Phone Jay Howell MD Primary Care Provider [phone] Encounter Details Date Type Department Care Team (Late st Contact Info) Description 06/19/2020 Transcribed Document [facility] [place] [facility] [address] [place] [address] ProviderJessie MD [address] [place] [address] Social History Tobacco Use Types Packs/Day Years Used Date Smoking Tobacco: Never Assessed Comments Unknown Sex and Gender Information Value Date Recorded Sex Assigned at Not on file Legal Sex Female 7:30 PM CDT Gender Identity Not on file Sexual Orientation Not on file documented as of this encounter Miscellaneous Notes * Cerner Conversion Note - Jessie Yuen MD - 06/19/2020 12:15 PM CDT Patient Education Materials Follows: Hypertension, Adult High blood pressure (hypertension) is [...] Limit how much you use to: ? 0?1 drink a day [...] provider. This is important. Medicines ??? Take [id number] and prescription medicines only as told by [...] 10/03/2006 Document Revised: 06/13/2019 Document Reviewed: 06/13/2019 [employer] Patient Education ? 2020 [employer]. documented in this encounter Plan of Treatment Not on file documented as of this encounter Visit Diagnoses Not on filedocumented in this encounter Care Teams Poleyard Supervisor Relationship Specialty Start Date End Date Jay Howell MD [address] [place] [phone] PCP - General Emergency Medicine 11/12/23 documented as of this encounter
--- OUTSIDE RECORDS SUMMARY | 2025-07-12 08:51 | XMS_ITS | Encounter Summary ---
Author Organization [facility] Address [address] [place] [address] Care Team Providers Care Escrow Manager Name Role Phone Jay Howell MD Primary Care Provider Encounter Details Date Type Department Care Team (Late st Contact Info) Description 05/27/2025 Telephone [facility] [address], [address]st [place] [address] [facility], Physician, [address] [place], [place] [id number] Social History Tobacco Use Types Packs/Day Years Used Date Smoking Tobacco: Former Cigarettes 1991 Passive Smoke Exposure: Past Smokeless Tobacco: Never Alcohol Use Standard Drinks/Week Comments No 0 (1 standard drink = 0.6 oz pur e alcohol) Humiliation, Afraid, Rape, and Kick questionnair e Answer Date Recorded Within the last year, have y ou been afraid of your partner or ex-partner? No 08/06/2024 Within the last year, have y ou been humiliated or emotionally abused in other ways by your partner or ex-partner? No Within the last year, have y ou been kicked, hit, slapped, or otherwise physically hurt by your partner or ex-partner? No 08/06/2024 Within the last year, have y ou been raped or forced to have any kind of sexual activity by your partner or ex-partner? No 08/06/2024 PHQ-2 Answer Date Recorded Patient Health Questionnaire-2 Score 0 04/03/2024 Hunger Vital Sign Answer Date Recorded Within the past 12 months, y ou worried that your food would run out before you got the money to buy more. Never true 08/06/20 24 Within the past 12 months, t he food you bought just didn't last and you didn't have money to get more. Never true 08/06/2024 PRAPARE - Transportation Answer Date Re corded In the past 12 months, has l ack of transportation kept you from medical appointments or from getting medications? No 07/18 In the past 12 months, has l ack of transportation kept you from meetings, work, or from getting things needed for daily living? No 08/06/2024 Housing Stability Vital Sign Answer Chito e Recorded In the last 12 months, was t here a time when you were not able to pay the mortgage or rent on time? No 08/06/2024 In the last 12 months, how many places have you lived? 1 08/06/2024 In the last 12 months, was t here a time when you did not have a steady place to sleep or slept in a half-way (including now)? No 08/06/2024 CAGE ASSESSMENT Answer Date Recorded Cage unable to access Not on file 03/20/2024 Cage max number of drinks Not on file 2023 Cage Beverages a week Not on file 03/20/2024 Have you ever felt you should CUT down on your d rinking? 0 03/20/2024 Have you been ANNOYED by people criticizing your drinking? 0 03/20/2024 Have you felt GUILTY about your drinking? 0 03/20/2024 Have you had a drink first t kathleen in the morning (EYE-FRONT DESK SUPERVISOR) to steady your nerves or to get rid of a hangover? 0 03/20/2024 CAGE Questionnaire Score 0 024 Utilities Answer Date Recorded In the past 12 months has th e electric, gas, oil, or water company threatened to shut off services in your home? No 08/06/2024 Comments No Sex and Gender Information Value Date Recorded Sex Assigned at Female 03/08/2024 4:53 AM EDT Legal Sex Female 8:23 PM EDT Gender Identity Female 03/08/2024 4:53 AM EDT Sexual Orientation Straight 03/08/2024 4: 53 AM EDT documented as of this encounter Plan of Treatment Not on file documented as of this encounter Visit Diagnoses Not on filedocumented in this encounter Additional Health Concerns Assessment Noted Time A fall risk assessment has been complete d for the patient 10/31/2024 9:56 AM EST A Body Mass Index follow-up plan has been documented for the patient 10/31/2024 10:09 AM EST documented as of this encounter Care Teams Escrow Manager Relationship Specialty Start Date End Date Jay Howell MD [address] [address] PCP - General 03/08/21 documented as of this encounter
--- OUTSIDE RECORDS SUMMARY | 2025-07-12 08:51 | XMS_ITS | Encounter Summary ---
Author Organization [facility] Address [address] [place] [address] Care Team Providers Care Biology Research Assistant Name Role Phone Jay Howell MD Primary Care Provider [phone] Encounter Details Date Type Department Care Team (Late st Contact Info) Description 05/13/2025 Telephone [facility] [address], 1st [place] [address] [facility], Physician, [address] [place], [place] [phone] Social History Tobacco Use Types Packs/Day Years [...] place to sleep or slept in a retirement (including now)? No 08/06/2024 CAGE ASSESSMENT Answer [...] drink first t kathleen in the morning (EYE-DRIVER) to steady your nerves or to get [...] documented as of this encounter Care Teams Biology Research Assistant Relationship Specialty Start Date End Date Jay Howell MD [address] [address] PCP - General 03/08/21 documented as of this encounter
--- OUTSIDE RECORDS SUMMARY | 2025-07-12 08:51 | XMS_ITS | Encounter Summary ---
Author Organization [address] Address [address] [place] [address] Care Team Providers Care Direct Service Worker Name Role Phone Jay Howell MD Primary Care Provider Reason for Visit * Reason Onset Date Comments Returned Call 07/02/2025 Encounter Details Date Type Department Care Team (Late st Contact Info) Description 07/02/2025 Telephone [place] [facility] [address], [address] [place] [address] None, None [address] [place] [address] Returned Call Social History Tobacco Use Types Packs/Day Years [...] place to sleep or slept in a long term (including now)? No 08/06/2024 CAGE ASSESSMENT Answer [...] drink first t kathleen in the morning (EYE-INCIDENT RESPONSE LEAD) to steady your nerves or to get rid of a hangover? 0 03/20/2024 CAGE Questionnaire Score 0 024 Utilities Answer Date Recorded In the past 12 months has th e [employer], gas, oil, or water company threatened to shut off services in your home? No 08/06/2024 Comments No Sex and Gender Information Value Date Recorded Sex Assigned at Female 03/08/2024 4:53 AM EDT Legal Sex Female 8:23 PM EDT Gender Identity Female 03/08/2024 4:53 AM EDT Sexual Orientation Straight 03/08/2024 4: 53 AM EDT documented as of this encounter Miscellaneous Notes * Telephone Encounter - Page Karimi - 07/02/2025 10:57 AM EDT Clinical Concern/Question Reason for Call: Sarah with [facility] in [place] called, saying that pt needs a STAT appt for a void trail. They have done 2 but she failed both of them. I explained we need a referral, but she is saying they cannot send us a referral or records until we send them a request for the referral and records. Their fax for medical records is [phone]. Please give her a call back. Thanks! Best contact number: Other: [phone] Optimal time of day to reach caller: ANYTIME Additional comments/information from caller: None Note: Please do not reply to this message. Follow-up communication and further actions as a result of this message need to be communicated with the patient directly, if the patient is not active onMyChart. If the patient is active on MyChart, they will receive notification of the communication/outcome via [employer]. documented in this encounter Plan of Treatment [...] documented as of this encounter Care Teams Direct Service Worker Relationship Specialty Start Date End Date Jay Howell MD [address] [place] [address] PCP - General 03/08/21 documented as of this encounter
--- OUTSIDE RECORDS SUMMARY | 2025-07-12 08:51 | XMS_ITS | Encounter Summary ---
Author Organization [employer] ([place], [place], [place], [place]) Address [address] [place] [address] Care Team Providers Care Obstetrics Teacher Name Role Phone Jay Howell MD Primary Care Provider [phone] Encounter Details Date Type Department Care Team (Late st Contact Info) Description 06/14/2020 Transcribed Document [facility] Family Medicine [address] [place] [address] ProviderJessie MD [address] [place] [address] Social History Tobacco Use Types Packs/Day Years Used Date Smoking Tobacco: Never Assessed Comments Unknown Sex and Gender Information Value Date Recorded Sex Assigned at Not on file Legal Sex Female 7:30 PM CDT Gender Identity Not on file Sexual Orientation Not on file documented as of this encounter Miscellaneous Notes * Cerner Conversion Note - Jessie ProviderMD - 06/14/2020 2:00 AM CDT Unpaid Intern Details Entered On: 06/14/2020 2:51 EDT Performed On: 06/14/2020 2:00 EDT by PAUL GERBER RN Order Details Transport Mode Order Detail : Stretcher/Gurney Isolation Precautions Order Detail : Standard Precautions Order Detail : N/A IV Order Detail : 1 Oxygen Order Detail : 0 Nurse Collect Order Detail : 0 Lift/Transfer : Independent Central Line Order Detail : No Room Service : Appropriate Arterial Line : No PAUL GERBER RN - 06/14/2020 2:51 EDT documented in this encounter Plan of Treatment Not on file documented as of this encounter Visit Diagnoses Not on filedocumented in this encounter Care Teams Obstetrics Teacher Relationship Specialty Start Date End Date Jay Howell MD [address] [place] [phone] PCP - General Emergency Medicine 11/12/23 documented as of this encounter
--- OUTSIDE RECORDS SUMMARY | 2025-07-12 08:51 | XMS_ITS | Encounter Summary ---
Author Organization [email or web address] ([place], [place], [place]) Address [address] [place] [address] Care Team Providers Care Electric Power Machine Operator Name Role Phone Jay Howell MD Primary Care Provider [phone] Encounter Details Date Type Department Care Team (Late st Contact Info) Description 03/03/2021 Transcribed Document [facility] Family Medicine [address] [place] [address] ProviderJessie MD [address] [place] [id number] Social History Tobacco Use Types Packs/Day Years Used Date Smoking Tobacco: Never Assessed Comments Unknown Sex and Gender Information Value Date Recorded Sex Assigned at Not on file Legal Sex Female 7:30 PM CDT Gender Identity Not on file Sexual Orientation Not on file documented as of this encounter Miscellaneous Notes * Cerner Conversion Note - Historical ProviderMD - 03/03/2021 5:06 PM CDT Electronically signed by [facility] Conversion Manager Of Maintenance Cerner at 02/04/2023 2:08 PM CDT documented in this encounter Plan of Treatment Not on file documented as of this encounter Visit Diagnoses Not on filedocumented in this encounter Care Teams Electric Power Machine Operator Relationship Specialty Start Date End Date Jay Howell MD [address] [place] [phone] PCP - General Emergency Medicine 11/12/23 documented as of this encounter
--- OUTSIDE RECORDS SUMMARY | 2025-07-12 08:51 | XMS_ITS | Encounter Summary ---
Author Organization [employer] ([place], [place], [place], [place]) Address [address] [place] [address] Care Team Providers Care Gas Mask Assembler Name Role Phone Jay Howell MD Primary Care Provider [phone] Encounter Details Date Type Department Care Team (Late st Contact Info) Description 08/22/2020 Transcribed Document [facility] [place] [address] [place] [address] ProviderJessie MD [address] [place] [address] Social History Tobacco Use Types Packs/Day Years Used Date Smoking Tobacco: Never Assessed Comments Unknown Sex and Gender Information Value Date Recorded Sex Assigned at Not on file Legal Sex Female 7:30 PM CDT Gender Identity Not on file Sexual Orientation Not on file documented as of this encounter Miscellaneous Notes * Cerner Conversion Note - Historical ProviderMD - 08/22/2020 8:49 PM BRANCH OPERATIONS MANAGER [place] Suicide Severity Rating Scale (C-SSRS) Entered On: 08/22/2020 23:10 EST Performed On: 08/22/2020 23:10 EST by Noy Miguel Paramedic [place] Suicide Severity Rating Scale (C-SSRS) CSSRS Past Month Wish to be : No CSSRS Past Month Suicidal Thoughts : No CSSRS Lifetime Suicide Behavior : No Suicide Severity Rating Score : 0 Suicide Severity Rating : No Additional Care Required at this time Thoughts of Harming/Killing Others : No Noy Miguel Paramedic - 08/22/2020 23:10 EST Electronically signed by Sivan, [facility] Conversion White Spooler Cerner at 02/04/2023 2:06 PM CDT documented in this encounter Plan of Treatment Not on file documented as of this encounter Visit Diagnoses Not on filedocumented in this encounter Care Teams Gas Mask Assembler Relationship Specialty Start Date End Date Jay Howell MD [address] [place] [phone] PCP - General Emergency Medicine 11/12/23 documented as of this encounter
--- OUTSIDE RECORDS SUMMARY | 2025-07-12 08:51 | XMS_ITS | Encounter Summary ---
Author Organization [email or web address] ([place], [place], [place], [place]) Address [address] [place] [address] Care Team Providers Care Part Time Name Role Phone Jay Howell MD Primary Care Provider [phone] Encounter Details Date Type Department Care Team (Late st Contact Info) Description 08/22/2020 Transcribed Document [facility] [place] Medicine [address] [place] [address] ProviderJessie MD [address] [place] [address] Social History Tobacco Use Types Packs/Day Years Used Date Smoking Tobacco: Never Assessed Comments Unknown Sex and Gender Information Value Date Recorded Sex Assigned at Not on file Legal Sex Female 7:30 PM CDT Gender Identity Not on file Sexual Orientation Not on file documented as of this encounter Miscellaneous Notes * Cerner Conversion Note - Historical MD Alpa - 08/22/2020 10:50 PM CENTRAL OFFICE INSTALLER Patient: SKYLER MONTOYA Age: 79 years Sex: Female : 1940 Associated Diagnoses: Abscess of left leg Author: LO HALE MD-EMR Basic Information Additional information: Chief Complaint from Nursing Triage Note : Chief Complaint 08/22/2020 20:52 EST Chief Complaint c/o LLE pain/ swelling. felll last week, seen by pcp and [facility] 3 times this week for same. fracture advised, not wearing walking boot as prescribed. on coumadin. . History of Present Illness Patient is an 79-year-old white female. She fell approximately 5 days ago striking her left anterior lower tib-fib region. She developed a hematoma which has subsequently turned red and become painful. Her primary care called in some Keflex. No relief. No fever no chills. She is having increasing pain over the anterior aspect of the tib-fib. She is on Coumadin Review of Systems Constitutional symptoms: Negative except [...] and blisters.. Medications: (Selected) Inpatient Medications Ordered Zofran: 4 mg, IV Push, 1-Time bupivacaine 0.5% injectable solution: 10 mL, IntraDermal, 1-Time fentaNYL: 50 mcg, IV Push, 1-Time lidocaine-prilocaine 2.5%-2.5% topical cream: 1 Application, Topical, 1-Time vancomycin + Sodium Chloride 0.9% intravenous solution 250 mL: 1,500 mg, 250 mL/Hr, IV Piggyback, 1-Time Prescriptions Prescribed atorvastatin 80 mg oral tablet: 1 Tab, Oral, At Bedtime, for 30 Day(s), 30 Tab, 0 Refill(s) carvedilol 6.25 mg oral tablet: 1 Tab, Oral, TID, for 30 Day(s), 90 Tab, 0 Refill(s) hydrALAZINE 10 mg oral tablet: [...] 06/13/2020 8:52 EVA LAWS RN PCI w/ [place] stent to D1 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 femur repair. Appendectomy ([id number]). uterine suspension. Hysterectomy ([id number]). back surgury. Cholecystectomy ([id number]). Hip replacement ([id number]). cataract surgury.. Family history: Cardiomyopathy Child Stroke [...] Physical Examination Vital Signs Vital Signs/Vital Measures 08/22/2020 20:52 EST Systolic Blood Pressure 224 mmHg HI Diastolic Blood Pressure 103 mmHg HI Temperature Mode Fahrenheit Temperature, Fahrenheit 99.1 Deg F Clinical Temperature, C 37.3 Deg C Peripheral Pulse Rate 76 bpm Respiratory Rate 17 Breaths/Min Oxygen Saturation 96 % Oxygen Therapy Mode Room air . Measurements 08/22/2020 20:52 EST Height Source Stated Height Entry Format [place] Height/Length, CANADIAN (ft) 5 ft Height/Length CANADIAN 3 Inch CLINICALHEIGHT 160.02 cm [place] Body Weight 52.02 kg Weight Source, ED Critical estimated dosing weight Weight Entry Format [place] Weight [place] lb 154 lb CLINICALWEIGHT 70 kg Body Surface Area (BSA) 1.73 m2 Body Mass Index 27.3 kg/m2 HI . Oxygen Saturation 08/22/2020 20:52 EST Oxygen Saturation 96 % . General: Alert, mild distress. Skin: Left lower extremity: There is a hematoma on the lower fourth of the anterior left tib-fib area. It is approximately 1.5 x 1.5 cm. The hematoma clearly has secondary cellulitis associated with the hematoma. The ankle itself is nontender distal to this area. Pedal pulses 2+ and equal. The foot itself is nontender. Musculoskeletal: Left lower extremity: There is a hematoma on the lower fourth of the anterior left tib-fib area. It is approximately 1.5 x 1.5 cm. The hematoma clearly has secondary cellulitis associated with the hematoma. The ankle itself is nontender distal to this area. Pedal pulses 2+ and equal. The foot itself is nontender. Neurological: Alert and oriented to person, place, time, and situation, No focal neurological deficit observed. Psychiatric: Cooperative. Medical Decision Making Documents reviewed: Emergency department nurses' notes. Results review: Lab results : Lab Results 08/22/2020 23:17 EST Sodium Level 138 mmol/L Potassium Level 4.1 mmol/L Chloride Level 108 mmol/L Carbon Dioxide Level 27 mmol/L Anion Gap 7 LOW Glucose Level 113 mg/dL HI Blood Urea Nitrogen 15 mg/dL Creatinine Level 0.80 mg/dL eGFR >60 mL/min/1.73m2 eGFR NonAfrican >60 mL/min/1.73m2 Bun/Creatinine 18.8 Calcium Level 9.0 mg/dL Lactic Acid Level 1.3 mmol/L WBC 7.1 K/uL RBC 3.50 Million/uL LOW Hgb 11.0 g/dL LOW Hct 33.8 % LOW MCV 96.6 fL HI MCH 31.4 pg MCHC 32.5 Gram/dL Platelet Count 158 K/uL LOW MPV 9.8 fL RDW 13.3 % Neut % 53.8 % Neut # 3.80 K/uL Lymph % 33.0 % Lymph # 2.33 x10(3)/uL [place] % 10.1 % HI [place] # 0.71 K/uL Eos % 2.1 % Eos # 0.15 x10(3)/uL Baso % 0.4 % Baso # 0.03 x10(3)/uL Slide Review No IG# 0.04 x10(3)/uL IG% 0.60 % . Radiology results: Left tib/fib: no fx or dl Left ankle: no fx or dl. [facility] [id number] was reviewed. Last entry 07/30/20 for norco 5 #21. Procedure Incision and Drainage left leg: The left anterior tibial area was dressed with EMLA cream for 1 hour. Thereafter it was cleansed with Hibiclens and injected with 8 mL of 0.5% bupivacaine without epinephrine. A 1.5 vertical incision was made over the middle of the infected hematoma. Large amounts of old blood were expressed. Wound culture was obtained. I bluntly probed to the area with hemostats and expressed all of the old hematoma. I irrigated the cavity with sterile saline. A small piece of Aquacel packing was placed within the wound. A sterile dressing was placed above this. Impression and Plan Diagnosis Abscess of left leg - Discharge, Emergency medicine, Medical Plan Condition: Improved, Stable. Prescriptions: Prescription Cash Management Coordinator Pharmacy: [facility] 7.5 mg-325 mg oral tablet (Prescribe): 1 Tab, Oral, Q6H, for 3 Day(s), PRN: as needed for pain, 12 Tab, 0 Refill(s) clindamycin 300 mg oral capsule (Prescribe): 1 Cap, Oral, QID, for 7 Day(s), 28 Cap, 0 Refill(s), Prescription Cash Management Coordinator Pharmacy: [facility] 2% topical ointment (Prescribe): 1 Application, Topical, TID, 22 Gram, 0 Refill(s). Patient was given the following educational materials: Skin Abscess, Incision and Drainage, Care After. Follow up with: TARA CHEN Within 2 to 3 days THE PACKING CAN BE REMOVED ON TUESDAY. FOLLOWUP WITH WOUND CARE ON TUESDAY . RETURN FOR INCREASED PAIN, REDNESS, SWELLING. Counseled: Patient, Family. Orders: Launch Orders Admit/Transfer/Discharge: Discharge (Order): Start: 08/23/2020 1:05 EST, Discharge to: Home. documented in this encounter Plan of Treatment Not on file documented as of this encounter Visit Diagnoses Not on filedocumented in this encounter Care Teams Part Time Relationship Specialty Start Date End Date Jay Howell MD [address] [place] [phone] PCP - General Emergency Medicine 11/12/23 documented as of this encounter
--- OUTSIDE RECORDS SUMMARY | 2025-07-12 08:51 | XMS_ITS | Encounter Summary ---
Author Organization [employer] ([place], [place], [place], [place]) Address [address] [place] [address] Care Team Providers Care Survey Operations Director Name Role Phone Jay Howell MD Primary Care Provider [phone] Encounter Details Date Type Department Care Team (Late st Contact Info) Description 06/14/2020 Transcribed Document [facility] [place] [facility] [place] [address] ProviderJessie MD [address] [place] [address] Social History Tobacco Use Types Packs/Day Years Used Date Smoking Tobacco: Never Assessed Comments Unknown Sex and Gender Information Value Date Recorded Sex Assigned at Not on file Legal Sex Female 7:30 PM CDT Gender Identity Not on file Sexual Orientation Not on file documented as of this encounter Miscellaneous Notes * Cerner Conversion Note - Jessie Yuen MD - 06/14/2020 7:42 AM CDT Patient: SKYLER MONTOYA Age: 79 years Sex: Female : 1940 Associated Diagnoses: None Author: FREDY YAÑEZ MD-CAR BASIC Honing Machine Operator: None Subjective NAD Health Status Allergies: Allergic Reactions (Selected) Severity Not Documented Macrodantin- No reactions were documented. Morphine- Rash and rash. Nitrofurantoin- Blisters and blisters., Allergies (1) Active Reaction Macrodantin None Documented Current medications: (Selected) Inpatient Medications Ordered Ativan: 0.5 mg, IV Push, Q4H, PRN: Agitation Combigan ophthalmic solution: 1 Drop, Eye Right, BID Coumadin: 2 mg, Oral, TuThFrSaSu Coumadin: 3 mg, Oral, MoWe Cozaar: 100 mg, Oral, Daily DuoNeb 0.5 mg-2.5 mg/3 mL inhalation solution: 3 mL, Nebulized Inhalation, Q6H, PRN: Shortness of Breath Pepcid: 20 mg, Oral, Daily Phenergan: 6.25 mg, IntraVENous, Q6H, PRN: Nausea Pred Forte 1% ophthalmic suspension: 1 Drop, Eye Right, 8 Times a Day Prevnar 13: 0.5 [...] TID dorzolamide 2% ophthalmic solution: 1 Drop, Eye Right, BID hydrALAZINE: 10 mg, IV Push, Q6H, PRN: Hypertension hydrALAZINE: 10 mg, Oral, BID Documented Medications Documented Combigan 0.2%-0.5% ophthalmic solution: [...] oral tablet: 1 Tab, Oral, At Bedtime, MAY NEED RX AT DISCHARGE; PER PHARMACY OUT OF REFILLS, 0 Refill(s) carvedilol 6.25 mg oral tablet: 1 Tab, Oral, BID, 180 Tab, 0 Refill(s) dorzolamide 2% ophthalmic solution: 1 Drop, Eye Right, BID, 0 Refill(s) hydrALAZINE 25 mg oral tablet: 1 Tab, Oral, TID, MAY NEED RX AT DISCHARGE; PER PHARMACY OUT OF REFILLS, 90 Tab, 0 Refill(s) losartan 100 mg oral tablet: 1 Tab, Oral, Daily, 0 Refill(s) metFORMIN 500 mg oral tablet, extended release: 1 Tab, Oral, BID With Meals, 0 Refill(s) omeprazole 40 mg oral delayed release capsule: 1 Cap, Oral, Daily, 30 Cap, 0 Refill(s), Home Medications (16) Active aspirin 81 mg oral tablet 81 mg = 1 Tab, Oral, Daily atorvastatin 80 mg oral tablet 80 mg = 1 Tab, Oral, At Bedtime carvedilol 6.25 mg oral tablet 6.25 mg = 1 Tab, Oral, BID Combigan 0.2%-0.5% ophthalmic solution 1 Drop, Eye Right, BID Coumadin 2 mg oral tablet 3 mg = 1.5 Tab, Oral, MoWe Coumadin 2 mg oral tablet 2 mg = 1 Tab, Oral, TuThFrSaSu dorzolamide 2% ophthalmic solution 1 Drop, Eye Right, BID Durezol 0.05% ophthalmic emulsion 1 Drop, Eye Right, QID hydrALAZINE 25 mg oral tablet 25 mg = 1 Tab, Oral, TID losartan 100 mg oral tablet 100 mg [...] Tab, PRN, Oral, At Bedtime , Medications (21) Active Scheduled: (14) amLODIPine 10 mg tab 10 mg 1 Tab, Oral, Daily aspirin 81 mg chew tab 81 mg 1 Tab, Oral, Daily atorvastatin 40 mg tab 80 mg 2 Tab, Oral, At Bedtime carvedilol 6.25 mg tab 6.25 mg 1 Tab, Oral, TID dorzolamide 2% ophth soln 10 mL 1 Drop, Eye Right, BID famotidine 20 mg tab 20 mg 1 Tab, Oral, Daily hydrALAZINE 10 mg tab 10 mg 1 Tab, Oral, BID losartan 50 mg tab 100 mg 2 Tab, Oral, Daily pneumococcal 13-elin vacc 0.5 mL inj 0.5 mL, IntraMuscular, 1-Time prednisoLONE 1% ophth susp 5 mL 1 Drop, Eye Right, 8 Times a Day ranolazine ER 500 mg tab 1,000 mg 2 Tab, Oral, BID timolol-brimonidine ophth drops 1 Drop, Eye Right, BID warfarin 2 mg tab 2 mg 1 Tab, Oral, TuThFrSaSu warfarin 3 mg tab 3 mg 1 [...] mg 0.25 mL, IntraVENous, Q6H Problem list: All Problems Arthritis / SNOMED CT 9225794 / Confirmed Atrial fibrillation with RVR / SNOMED CT 0391392763 / Confirmed Blood clot / SNOMED CT 923354068 / Confirmed Cataract / Patient Care / Confirmed Chest pain / SNOMED CT 80398390 / Complaint of Clotting disorder / SNOMED CT 249642985 / Confirmed COPD / SNOMED CT 50265390 / Confirmed Coronary artery disease / SNOMED CT 6172627685 / Confirmed Diabetes mellitus / SNOMED CT 172169543 / Confirmed GERD - Gastro-esophageal reflux disease / SNOMED CT 6233609532 / Confirmed Glaucoma / Patient Care / Confirmed Chronic anticoagulation / SNOMED CT 094673559 / Confirmed Hx of pulmonary embolus / SNOMED CT 367345110 / Confirmed High blood pressure / SNOMED CT 76962192 / Confirmed History of obstructive sleep apnea / IMO 59347529 / Confirmed Hyperlipidemia / SNOMED CT 47771260 / Confirmed Multiple renal cysts / SNOMED CT 649967991 / Confirmed Emphysema / SNOMED CT 269716533 / Confirmed Apnea, sleep / SNOMED CT 574998494 / Confirmed Stented coronary artery / SNOMED CT 9065605111 / Confirmed UTI - Urinary tract infection / SNOMED CT 9310992704 / Confirmed, Active Problems (21) Apnea, sleep Arthritis Atrial fibrillation with RVR Blood clot Cataract Chest pain Chronic anticoagulation Clotting disorder COPD Coronary artery disease Diabetes mellitus Emphysema GERD - Gastro-esophageal reflux disease Glaucoma High blood pressure History of obstructive sleep apnea Hx of pulmonary embolus Hyperlipidemia Multiple renal cysts Stented coronary artery UTI - Urinary tract infection Objective Intake and Output 24 hour intake, 24 hour output VS/Measurements Vitals Signs (last 24 hrs) Last Charted Minimum Maximum Temp 98.4 (JUN 14 06:23) 98.4 (JUN 14 06:23) 98.2 (JUN 13 18:17) Apical HR 71 (JUN 13 21:43) 71 (JUN 13 21:43) 71 (JUN 13 21:43) Mon HR 72 (JUN 14 06:23) 61 (JUN 13 08:50) 89 (JUN 14 02:51) Resp Rate 18 (JUN 14 06:23) 16 (JUN 14 02:51) H 22 (JUN 13 18:17) SBP H 155 (JUN 14 06:23) L 81 (JUN 13 07:57) H 180 (JUN 13 10:05) DBP 79 (JUN 14 06:23) L 38 (JUN 13 07:57) 83 (JUN 14 02:51) MAP 93 (JUN 14 06:23) 52 (JUN 13 08:06) 131 (JUN 13 10:10) SpO2 98 (JUN 13 09:30) 94 (JUN 13 07:57) 100 (JUN 13 09:00) General: Alert and oriented, No acute distress. [...] of motion, Normal strength. Integumentary: Warm, Dry, Coco. Neurologic: Alert, Oriented. Psychiatric: Cooperative, Appropriate mood & affect. Results Review JUN 14 05:28 136 105 7 / H 114 3.6 24 0.60 \ JUN 14 05:28 \ 12.0 / 5.2 177 / 35.2 \ Cardiac Markers (Current Encounter/Past 24 Hours) No Cardiac Marker Results Found (Past 24 Hours) Radiology Results (Last 48 hours) [id number] -- 06/13/2020 15:07 CR Chest 1 Vw Portable (06/12/2020 21:58) [...] by Dr. Patrice Eaton.Transcribed by Pricila Hernández PA-C.I have personally viewed, interpreted and dictated the examination. Ihave read and agree with the above final transcribed report. CT Head WO (06/13/2020 00:47) Result: CT HEAD WITHOUT CONTRASTHISTORY: Headache, hypertension.TECHNIQUE: Thin-section axial images of the brain were performed withoutcontrast. This study was performed with techniques to keep radiationdoses as low as reasonably achievable, (ALARA). Individualized dosereduction techniques using automated exposure control or adjustment ofmA and/or kV according to the patient size were employed.COMPARISON: None.FINDINGS: Bone windows demonstrate no fractures or other abnormalities.The visualized paranasal sinuses and mastoid air cells demonstrate noabnormalities. The visualized orbits and globes are unremarkable. Thereare significant vertebral artery calcifications. The brainstem andposterior fossa are otherwise unremarkable. The ventricles and basalcisterns are normal. There is mild age-appropriate cortical atrophy.There is no cortical edema. There is no hemorrhage. There is patchylow-attenuation in the periventricular white matter consistent with mildmicrovascular change.IMPRESSION: Mild atrophy and mild microvascular change with no acuteprocess.Images reviewed, interpreted, and dictated by Patrice Eaton MD CT Head WO (06/13/2020 09:58) Result: CT brain without IV contrastHISTORY: Head traumaFINDINGS: Comparison is made to the study of earlier today. Noncontrastimaging. This study was performed with techniques to keep radiationdoses as low as reasonably achievable (ALARA). Individualized dosereduction techniques using automated exposure control or adjustment ofmA and/or kV according to the patient's size were employed.There is atrophy. There is no acute mass effect or edema. There is noevidence of acute CVA or hemorrhage. There have been no significantinterval changes.IMPRESSION: Chronic findings. No change from prior. No acute process. [facility] IMPRESSION: Angiographically, the patient has severe three-vessel [...] ischemic changes by EKG HARVINDER to LAD . Echo-valves OK, EF 55% in 2019 CAD s/p CABG (1992) subsequent stents in 2007, 2010, and 2018 Paroxysmal atrial fibrillation and prior PE chronic Warfarin subtherapeutic INR 1.8 HTN improved SBP 140's. HLD Carotid stenosis Seizure disorder DANTE COPD DMII PLAN; 06/14/2020 Event recorder after DC w/ Dr. Garcia. Continue current CV meds. OK to DC from cardiac standpoint. RV w/ Dr. Stephania Garcia. 06/13/2020 Obtain copy of recent echo/nuclear stress test from Dr. Garcia office. Resume BP meds gradually. IVF. Continue other CV meds. Event recorder after DC w/ Dr. Garcia. Electronically signed by [facility] Conversion Ios Architect Cerner at 02/04/2023 2:15 PM CDT documented in this encounter Plan of Treatment Not on file documented as of this encounter Visit Diagnoses Not on filedocumented in this encounter Care Teams Survey Operations Director Relationship Specialty Start Date End Date Jay Howell MD [address] [place] [phone] PCP - General Emergency Medicine 11/12/23 documented as of this encounter
--- OUTSIDE RECORDS SUMMARY | 2025-07-12 08:51 | XMS_ITS | Encounter Summary ---
Author Organization [employer] ([place], [place], [place], [place]) Address [address] [place] [address] Care Team Providers Care Die Maker Apprentice Name Role Phone Jay Howell MD Primary Care Provider [phone] Encounter Details Date Type Department Care Team (Late st Contact Info) Description 08/22/2020 Transcribed Document [facility] [place] Medicine [address] [place] [address] ProviderJessie MD [address] [place] [address] Social History Tobacco Use Types Packs/Day Years Used Date Smoking Tobacco: Never Assessed Comments Unknown Sex and Gender Information Value Date Recorded Sex Assigned at Not on file Legal Sex Female 7:30 PM CDT Gender Identity Not on file Sexual Orientation Not on file documented as of this encounter Miscellaneous Notes * Cerner Conversion Note - Jessie ProviderMD - 08/22/2020 10:42 PM BENEFITS CONSULTANT Pain Assessment Entered On: 08/23/2020 1:08 EST Performed On: 08/23/2020 1:08 EST by Noy Miguel Paramedic Intervention Information: [email or web address] Performed by Oumou Augustine RN on 08/22/2020 23:21:00 EST fentaNYL,50mcg IV Push,Peripheral Line 1 Pain Assessment Pain Assessment : Follow-up assessment Pain Scale Used : 0-10 Scale Noy Miguel Paramedic - 08/23/2020 1:08 EST Pain Scale Intensity : 7 Noy Miguel Paramedic - 08/23/2020 1:08 EST Image 4 - Images currently included in the form version of this document have not been included in the text rendition version of the form. documented in this encounter Plan of Treatment Not on file documented as of this encounter Visit Diagnoses Not on filedocumented in this encounter Care Teams Die Maker Apprentice Relationship Specialty Start Date End Date Jay Howell MD [address] [place] [phone] PCP - General Emergency Medicine 11/12/23 documented as of this encounter
--- OUTSIDE RECORDS SUMMARY | 2025-07-12 08:51 | XMS_ITS | Encounter Summary ---
Author Organization [employer] ([place], [place], [place], [place]) Address [address] [place] [address] Care Team Providers Care Sleep Lab Technologist Name Role Phone Jay Howell MD Primary Care Provider [phone] Encounter Details Date Type Department Care Team (Late st Contact Info) Description 03/03/2021 Transcribed Document [facility] [place] [address] [place] [id number] ProviderJessie MD [address] [place] [phone] Social History Tobacco Use Types Packs/Day Years Used Date Smoking Tobacco: Never Assessed Comments Unknown Sex and Gender Information Value Date Recorded Sex Assigned at Not on file Legal Sex Female 7:30 PM CDT Gender Identity Not on file Sexual Orientation Not on file documented as of this encounter Miscellaneous Notes * Cerner Conversion Note - Jessie ProviderMD - 03/03/2021 3:59 PM CDT ED Assessment Entered On: 03/03/2021 16:25 EDT Performed On: 03/03/2021 16:24 EDT by Marek Sanford Rn ED Quick Look Assessment Level of Consciousness : Alert, Awake Affect/Behavior : Calm Orientation : Oriented x 4 Marek Sanford Rn - 03/03/2021 16:24 EDT ED General-Functional Assess Information Obtained From : Patient Preferred Communication Mode : Verbal Communication Barrier : None Primary Language : Bulgarian Any Spiritual/Cultural Needs or Requests : No Currently in Unsafe Situation : No Marek Sanford Rn - 03/03/2021 16:24 EDT ED Psychosocial Assessment Affect/Behavior : Appropriate, Calm Marek Sanford Rn - 03/03/2021 16:24 EDT Social Habits Smoking Status : Former smoker, quit more than 30 days ago Smokeless Tobacco Status : Never Desires Tobacco Cessation Calc : 0 Marek Sanford Rn - 03/03/2021 16:24 EDT Social History (As Of: 03/03/2021 16:25:44 EDT) Tobacco: Smoking Status Former smoker. Comments: [...] 12/14/2014 22:42:39 EST by BIPIN HOFF RN) EENT Assessment EENT Assessment WDL : WDL Marek Sanford Rn - 03/03/2021 16:24 EDT Cardiovascular ASMT, ED Cardiovascular Assessment WDL : WDMarek Carranza Rn - 03/03/2021 16:24 EDT Respiratory Breath Sounds Auscultated : Anterior Respiratory Assessment WDL : WDL Cough : None Marek Sanford Rn - 03/03/2021 16:24 EDT Breath Sounds Assessment Grid All Lobes Breath Sounds : Clear MAXI : Clear LLL : Clear RUL : Clear RML : Clear RLL : Clear Marek Sanford Rn - 03/03/2021 16:24 EDT Oxygen Therapy Oxygen Therapy Mode : Room air Marek Sanford Rn - 03/03/2021 16:24 EDT Gastrointestinal ED Gastrointestinal Assessment WDL : WDL Claribel, Marek, Rn - 03/03/2021 16:24 EDT Genitourinary Assessment, ED Genitourinary Assessment WDL : Marek Mederos Rn - 03/03/2021 16:24 EDT Musculoskeletal Musculoskeletal Assessment WDL : LALO with exceptions Musculoskeletal Assessment Comment : L hip Marek Sanford Rn - 03/03/2021 16:24 EDT Integumentary Assessment Integumentary Assessment WDL : Marek Mederos Rn - 03/03/2021 16:24 EDT Neurologic ASMT, ED Neurologic Assessment WDL : WD Neurological Symptoms : None Level of Consciousness : Alert, Awake Affect/Behavior : Appropriate Speech : Clear Orientation : Oriented x 4 Pupils Equal, Round, Reactive to Light : Yes Marek Sanford Rn - 03/03/2021 16:24 EDT Electronically signed by [facility] Conversion Senior Web Engineer Cerner at 02/04/2023 2:00 PM CDT documented in this encounter Plan of Treatment Not on file documented as of this encounter Visit Diagnoses Not on filedocumented in this encounter Care Teams Sleep Lab Technologist Relationship Specialty Start Date End Date Jay Howell MD [address] [place] [phone] PCP - General Emergency Medicine 11/12/23 documented as of this encounter
--- OUTSIDE RECORDS SUMMARY | 2025-07-12 08:51 | XMS_ITS | Encounter Summary ---
[facility] Organization [facility] Address [address] [place] [address] Care Team Providers Care Freight Air Brake Fitter Name Role Phone Jay Howell MD Primary Care Provider [phone] Encounter Details Date Type Department Care Team (Late st Contact Info) Description 06/08/2012 Conversion Encounter [facility] HISTORICAL CONV [address] [place] [address] Interface, See Report Social History Tobacco Use Types Packs/Day Years Used Date Smoking Tobacco: Never Assessed Comments Unknown Sex and Gender Information Value Date Recorded Sex Assigned at Not on file Legal Sex Female 12:44 PM EDT Gender Identity Not on file Sexual Orientation Not on file documented as of this encounter H&P Notes * Interface, See Report - 06/08/2012 4:16 PM EDT Zurdo Schuler M.D. ' Tana Rivera M.D. ' Rosalio Marie M.D. ' STEPHANIE Quezada M.D. ' Heath Amado M.D. ' Kailey Ruff APRN [address], [address] [place] [address] Attendify NEW PATIENT EVALUATION SKYLER MONTOYA : 1940 DATE OF VISIT: 06/08/2012 REFERRING PHYSICIAN: Dr. Avtar Moeller PROBLEMS: 1. History of pulmonary embolus. a. Pulmonary embolus diagnosed February 2011 at [facility]. b. Details incomplete. 2. Warfarin therapy. 3. Probable antiphospholipid antibody syndrome. a. Elevated antiphospholipid antibody on a single determination, repeat study pending. 4. Multiple renal cysts (presumed polycystic kidney disease). 5. Hypertension. 6. Coronary artery disease. 7. Arthritis, presumed osteoarthritis. HISTORY: This is a 71-year-old white female who was diagnosed with a pulmonary embolus in February 2011. She had persistent left chest pain and was evidently diagnosed by CT angiogram at [facility]; I do not have records from this. She was treated with heparin and then Lovenox and warfarin. She has been on warfarin since that time. She has not had any symptoms of recurrent pulmonary embolus. She does have several other problems including hematuria and pain from her multiple renal cysts. She has had these aspirated previously and reports that Dr. De La Paz needs to aspirate these again. She also describes a need for further spine surgery at some point. She has not had any leg pain or swelling and she has evidently never been diagnosed with a deep vein thrombosis. She has not had any recent medication changes. SKYLER MONTOYA : 1940 DATE OF VISIT: 06/08/2012 PAST MEDICAL HISTORY: 1. She had a CABG in September 1993. 2. She had three different back surgeries, most recently in 1997. 3. She had a hysterectomy in 1961 and evidently had a total hysterectomy in 1979. 4. She had a cholecystectomy in 2003. 5. She has had a total hip replacement in 2008. MEDICATIONS: 1. Atenolol. 2. Benazepril. 3. Amlodipine. 4. Neurontin. 5. Plavix. 6. Lortab p.r.n. 7. ISMO. 8. Lipitor. 9. Coumadin. 10. Ranexa. ALLERGIES: She lists an allergy to Macrodantin. SOCIAL HISTORY: She lives in [place] with her . She is accompanied today by her [id number] who is also a patient of our practice. 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 She is not working now. She does not smoke cigarettes now; she stopped in 1992. FAMILY HISTORY: Mother at 89 from chronic obstructive pulmonary disease. She did previously have colon cancer. Father at 71 from prostate cancer. She has a sister with diabetes. REVIEW OF SYSTEMS: Review of systems page was discussed with the patient and attached to the record. She did have different symptoms including chest pain and dyspnea on exertion. She is followed by Dr. Garcia in Cardiology. She has had some eye pain dryness and this is managed by an brand marketing manager. She has the hematuria and pain with her known renal cysts. She does have GERD with dyspepsia and she has multiple painful joints including large joint and small joints and she has undergone a total hip replacement. She has had a breast lump that was evaluated and she had a hematoma in the right breast after a fall. This is attached to the record. SKYLER MONTOYA : 1940 DATE OF VISIT: 06/08/2012 PHYSICAL EXAM: GENERAL: She is an alert, comfortable appearing, adult female. VITAL SIGNS: She is 64 inches tall and weight was 166.8 pounds. Blood pressure 144/88 with pulse 56. Respirations 20. Temperature 98. HEENT: The sclerae are anicteric. Extraocular movements were intact. Eyes otherwise normal. Oral mucosa is pink without ulcers or goran. NECK: There were no masses in the neck. HEART: Regular rhythm and rate. LUNGS: No rub, crackles or wheezes. ABDOMEN: Soft without masses or organomegaly. BREASTS: The right breast has an ecchymosis with a palpable abnormality beneath this that is consistent with a hematoma. She does not have any nipple retraction, et cetera, that would be more suspicious for neoplasm. EXTREMITIES: Without edema or cords. Joints had no erythema or effusion. SKIN: No rashes or purpura. She does have ecchymosis over the right breast. NODES: There were no cervical, supraclavicular or axillary nodes. NEUROLOGIC: She is alert and answers all questions appropriately. She moves all extremities normally. LABORATORY DATA: I have reviewed the labs provided by Dr. Moeller. She did have low protein C and protein S levels especially markedly decreased protein C functional assay with a mildly decreased protein C antigen. This would be very consistent with her warfarin therapy as are the abnormal protein S levels. More significantly her antiphospholipid antibody testing was abnormal with an elevated cardiolipin IgM; this was elevated at 24 which is in the low-medium positive range from the reference lab. This was done by [facility]. IMPRESSION: Possible antiphospholipid antibody syndrome with prior pulmonary embolus. The elevated phospholipid antibody certainly would increase her risk of pulmonary embolus and would increase her risk of another thrombotic event, either venous or even arterial if she were to stay off anticoagulant therapy. SKYLER MONTOYA : 1940 DATE OF VISIT: 06/08/2012 PLAN: 1. I will repeat her anticardiolipin antibody since this can policy change clerks supervisor time. If the anticardiolipin antibody is persistently positive that I think she will need to be treated as an antiphospholipid antibody syndrome. Unfortunately this would mean absolutely minimizing the time that she is off anticoagulants for any procedure and I would suggest a Lovenox bridge before and after any procedures. The aspiration of the renal cyst I suspect would require interrupting her anticoagulants only briefly such that she could use Lovenox for a few days before and after the procedure and simply allow her Coumadin to be stopped and started at the time of bridging. The question about spine surgery would be much more complex and would need to be discussed with Dr. Kelsey before the procedure. 2. Also, I will check her old records about her diagnosis of pulmonary embolus at [facility] and any additional testing done at that point. 3. I will see her back in a couple of weeks to go over her repeat testing on the anticardiolipin antibody and to discuss the timing and duration of her Lovenox bridge. I will plan to discuss that with Dr. De La Paz before the procedure once her lab results are available. Tana Rivera M.D.* TRUNG/rxaldarlene Doc. ID [id number] Rev. #0 cc: Avtar Moeller M.D.* Dr. Etienne De La Paz Page 4 of 4 Page 1 of 4 Authenticated and Edited by TANA RIVERA M.D. On 06/09/12 3:24:05 PM * Interface, See Report - 06/08/2012 4:16 PM EDT Zurdo Schuler M.D. ' Tana Rivera M.D. ' Rosalio Marie M.D. ' STEPHANIE Quezada M.D. ' Heath Amado M.D. ' Kailey Ruff APRN [address] [place] [address], [place] [address] [place] [address] Attendify OFFICE NOTE SKYLER MONTOYA : 1940 DATE OF VISIT: 06/29/2012 PROBLEM LIST: 1. Antiphospholipid antibody and history of pulmonary embolus. 2. Renal cyst. 3. Coronary artery disease. HISTORY: Ms. Montoya has continued to have some episodes of flank pain. She has not had any recent hematuria. She continues on her warfarin and does have easy bruising with this. She has not had any other new symptoms. In particular, she has not had any recent medicine changes. REVIEW OF SYSTEMS: As in the present illness. No chest pain, pleuritic pain, hemoptysis, or dyspnea. PHYSICAL EXAM: GENERAL: She is comfortable appearing. VITAL SIGNS: Afebrile. Vital signs acceptable. HEENT: Sclerae anicteric. Oral mucosa normal. HEART: Regular rhythm and rate. LUNGS: Without rub, crackles or wheezes. ABDOMEN: Soft without masses or organomegaly. She is tender in the flanks without discrete mass felt. EXTREMITIES: Without edema or cords. LYMPH: There were no lymph nodes felt. LABORATORY DATA: Her labs from 06/06/2011 showed normal white count, hemoglobin and platelets. Her anticardiolipin antibody was elevated as well as the beta 2 glycoprotein 1 antibody and IgM category. SKYLER MONTOYA : 1940 DATE OF VISIT: 06/29/2012 IMPRESSION: 1. Antiphospholipid antibody and history of pulmonary embolus. She has done well on her anticoagulants. PLAN: 1. I reviewed with her again the diagnosis of antiphospholipid antibody syndrome. She has had a venous thrombotic event and needs to continue on her anticoagulants. I would plan to use a Lovenox bridge around any procedures. I have reviewed that again with her. She is concerned about the cost of obtaining the medicines and I will try to get social contact worker to give her some help with this. Also, I will speak to Dr. De La Paz about this and I have a call into his office. Tana Rivera M.D.* TRUNG/ruperto Doc. ID [id number] Rev. #0 cc: Etienne De La Paz Jr., M.D.* Avtar Moeller M.D.* Page 2 of 2 Page 1 of 2 Authenticated by TANA RIVERA M.D. On 07/07/2012 04:36:41 PM * Interface, See Report - 06/08/2012 4:16 PM EDT Zurdo Schuler M.D. ' Tana Rivera M.D. ' Rosalio Marie M.D. ' STEPHANIE Quezada M.D. ' Heath Amado M.D. ' Kailey Ruff APRN [address], [address] [place] [id number] Attendify OFFICE NOTE SKYLER MONTOYA : 1940 DATE OF VISIT: 08/10/2012 PROBLEMS: 1. Antiphospholipid antibody syndrome with prior pulmonary embolus. 2. Warfarin therapy. 3. Renal cyst. 4. Coronary artery disease. HISTORY: Ms. Montoya underwent the renal cyst aspiration. She has had some discomfort. She did not have any bleeding problems. She has had some type of ankle fracture and she is now wearing a boot on this. She has been on her warfarin and Dr. Moeller is adjusting according to her levels. She has not had any other new findings including any symptoms or findings of any thrombotic events. REVIEW OF SYSTEMS: No cough, wheezing, or dyspnea. PHYSICAL EXAM: GENERAL: She is comfortable appearing, afebrile. HEENT: Sclerae anicteric. Oral mucosa normal. HEART: Regular rhythm and rate. LUNGS: Without rub, crackles or wheezes. ABDOMEN: Soft without masses or organomegaly. EXTREMITIES: Without edema or cords. NODES: There were no lymph nodes felt. IMPRESSION: Antiphospholipid antibody syndrome. She is doing well on her warfarin therapy. SKYLER MONTOYA : 1940 DATE OF VISIT: 08/10/2012 PLAN: 1. She will continue her warfarin and adjust doses as needed. 2. I will see her back in six months and plan to see her only yearly following that unless new problems develop or there is new information about the antiphospholipid antibodies. Tana Rivera M.D.* RME/rxalw Doc. ID [id number] Rev. #0 cc: Avtar Moeller M.D.* Page 2 of 2 Page 1 of 2 Authenticated by TANA RIVERA M.D. On 08/15/2012 09:44:06 AM * Interface, See Report - 06/08/2012 4:16 PM EDT Zurdo Schuler M.D. ' Tana Rivera M.D. ' Rosalio Marie M.D. ' STEPHANIE Quezada M.D. ' David Calvillo M.D. ' Heath Amado M.D. ' Kailey Ruff APRN [address] [place] [address] [place] [address] Attendify OFFICE NOTE SKYLER MONTOYA : 1940 DATE OF VISIT: 04/26/2013 1. Antiphospholipid antibody syndrome with prior pulmonary embolus. 2. Warfarin therapy for pulmonary embolus. 3. Renal cyst. 4. Coronary artery disease. HISTORY: Ms. Montoya has been having more fatigue. She describes difficulty falling asleep and poor sleep quality. She is going to be following up with Dr. Moeller about this. She did have some type of fracture in the lower right leg. She is doing well after this although she still has some discomfort. She has continued on her warfarin. She has had other medication changes as noted. MEDICATIONS: Medication reconciliation for the patient has been reviewed in the electronic medical record. REVIEW OF SYSTEMS: No cough, wheezing, hemoptysis, or pleuritic chest pain. No joint redness or swelling. PHYSICAL EXAM: GENERAL: She is comfortable appearing. HEENT: Sclerae are anicteric. Mucosa normal. HEART: Regular rhythm and rate. LUNGS: No rub, crackles or wheezes. ABDOMEN: Soft without masses or organomegaly. EXTREMITIES: Without edema or cords. NODES: There were no lymph nodes felt. IMPRESSION: Antiphospholipid antibody syndrome. She has continued to do well on her warfarin. PLAN: 1. She will continue her warfarin unchanged. I would definitely do a Lovenox bridge before and after any orthopedic procedures since she does tell me she is being evaluated for hip replacement on the other side. 2. I will see her back in one year. 3. I will be glad to see her around the time of her surgery if needed or if new problems develop. Tana Rivera M.D.* RMEmiliano/rxalw Doc. ID [id number] Rev. #0 cc: Avtar Moeller M.D.* Jorje Watters M.D.* SKYLER MONTOYA : 1940 DATE OF VISIT: 04/26/2013 Page 2 of 2 Page 1 of 2 DOCUMENT CODE :[facility]: PHYSICIAN CODE :08833: Authenticated by TANA RIVERA M.D. On 05/04/2013 10:54:04 AM * Interface, See Report - 06/08/2012 4:16 PM EDT Zurdo Schuler M.D. ' Tana Rivera M.D. ' Rosalio Marie M.D. ' STEPHANIE Quezada M.D. ' David Calvillo M.D. ' Heath Amado M.D. ' Kailey Ruff APRN [facility], [place] [address] [place] [address] [employer] [facility] OFFICE NOTE SKYLER MONTOYA : 1940 DATE OF VISIT: 07/12/2013 PROBLEM LIST: 1. Antiphospholipid antibody syndrome with prior pulmonary embolus. 2. Warfarin therapy for pulmonary embolus. 3. Multiple renal cysts. 4. Coronary artery disease. 5. 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 HISTORY: Ms. Montoya has been experiencing increased right flank pain. She has been found to have a large right renal cyst. She reports that Dr. De La Paz is planning aspirating this. She is here to discuss management of her anticoagulation around the procedure. She is also having pain in her left hip and she is still under consideration for hip replacement although given her history of thrombotic events and coronary artery disease this will be complicated. She has not had any unusual bruising or bleeding or blood clotting. She has her chronic lower extremity edema that is unchanged and symmetric. REVIEW OF SYSTEMS: No fevers, chills, sweats, joint redness or swelling. MEDICATIONS: Her med list was examined and medication reconciliation for the patient has been reviewed in the electronic medical record. PHYSICAL EXAM: GENERAL: She is comfortable appearing. HEENT: Sclerae anicteric. Oral mucosa normal. HEART: Regular rhythm and rate. LUNGS: No rub, crackles or wheezes. ABDOMEN: Soft without masses or organomegaly. PHYSICAL EXAMINATION - continued: EXTREMITIES: Mild bilateral lower extremity edema with no cords or calf tenderness. LYMPH: There are no lymph nodes felt. IMPRESSION: Antiphospholipid antibody syndrome with pulmonary embolism. She is anxious to have a right renal cyst aspirated if possible. PLAN: I reviewed with her my suggestion for the use of Lovenox as a bridge. I would try to do this with the minimum amount of medications given the expense to her. I have suggested that four days before the procedure she could omit her warfarin. Three days before the procedure she could take Lovenox twice daily and do this two days before the procedure also. The day before she should take Lovenox in the morning only and omit it that evening. She should be able to have the procedure performed the next day. Hopefully she could resume her Coumadin and Lovenox following that. This would be my recommendation. She seems to understand this well. She is concerned about the cost of the medications. She is familiar with using Lovenox however. I will see her back at her regular visits and I will be glad to see her sooner if new problems or questions develop. Tana Rivera M.D.* RMEmiliano/rxalw Doc. ID [id number] Rev. #0 cc: Avtar Moeller M.D.* Etienne De La Paz Jr., M.D.* Jorje Watters M.D.* SKYLER MONTOYA : 1940 DATE OF VISIT: 07/12/2013 Page 2 of 2 Page 1 of 2 DOCUMENT CODE :[facility]: PHYSICIAN CODE :[id number]: Authenticated by TANA RIVERA M.D. On 07/16/2013 01:57:36 PM documented in this encounter Plan of Treatment Not on file documented as of this encounter Visit Diagnoses Not on filedocumented in this encounter Care Teams Freight Air Brake Fitter Relationship Specialty Start Date End Date Jay Howell MD [address] [place] [address] PCP - General Emergency Medicine 04/28/23 documented as of this encounter
--- OUTSIDE RECORDS SUMMARY | 2025-07-12 08:51 | XMS_ITS | Encounter Summary ---
Author Organization [facility] ([place], [place], [place], [place]) Address [address] [place] [address] Care Team Providers Care Ripening Room Hand Name Role Phone Jay Howell MD Primary Care Provider [phone] Encounter Details Date Type Department Care Team (Late st Contact Info) Description 06/14/2020 Transcribed Document [facility] Family Medicine [address] [place] [address] ProviderJessie MD [address] [place] [address] Social History Tobacco Use Types Packs/Day Years Used Date Smoking Tobacco: Never Assessed Comments Unknown Sex and Gender Information Value Date Recorded Sex Assigned at Not on file Legal Sex Female 7:30 PM CDT Gender Identity Not on file Sexual Orientation Not on file documented as of this encounter Miscellaneous Notes * Cerner Conversion Note - Jessie ProviderMD - 06/14/2020 2:23 PM CDT Nursing Discharge Summary Entered On: 06/14/2020 14:25 EDT Performed On: 06/14/2020 14:23 EDT by JOAO NASSAR RN Discharge Documentation Discharge Date/Time : 06/14/2020 14:56 EDT Discharge Instructions Reviewed With, Opportunity For Questions Given : Spouse Patient Education Completed : Yes JOAO NASSAR RN - 06/14/2020 14:57 EDT Patient Disposition, General : Discharge Discharge To : Home with ambulatory/outpatient follow-up Mode Of Departure, General Discharge : Private vehicle Accompanied By, Discharge : Spouse IV Discontinued : Yes Personal Belongings With Patient : Yes Pt's Own Supply of Medications Returned : No patient supply of medications to return Prescriptions Given to Patient : Yes Medications Given to Patient : No JOAO NASSAR RN - 06/14/2020 14:23 EDT Number of Prescriptions Given : 3 JOAO NASSAR RN - 06/14/2020 14:57 EDT Teaching Method : Explanation, Printed materials Teaching Evaluation : Verbalizes understanding JOAO NASSAR RN - 06/14/2020 14:23 EDT documented in this encounter Plan of Treatment Not on file documented as of this encounter Visit Diagnoses Not on filedocumented in this encounter Care Teams Ripening Room Hand Relationship Specialty Start Date End Date Jay Howell MD [address] [place] [phone] PCP - General Emergency Medicine 11/12/23 documented as of this encounter
--- OUTSIDE RECORDS SUMMARY | 2025-07-12 08:51 | XMS_ITS | Encounter Summary ---
Author Organization [facility] ([place], [place], [place], [place]) Address [address] [place] [address] Care Team Providers Care Placing Judge Name Role Phone Jay Howell MD Primary Care Provider [phone] Encounter Details Date Type Department Care Team (Late st Contact Info) Description 03/03/2021 Transcribed Document [facility] Family Medicine [facility] [place] [address] ProviderJessie MD [address] [place] [id number] Social History Tobacco Use Types Packs/Day Years Used Date Smoking Tobacco: Never Assessed Comments Unknown Sex and Gender Information Value Date Recorded Sex Assigned at Not on file Legal Sex Female 7:30 PM CDT Gender Identity Not on file Sexual Orientation Not on file documented as of this encounter Miscellaneous Notes * Cerner Conversion Note - Jessie ProviderMD - 03/03/2021 5:15 PM CDT ED Discharge Entered On: 03/03/2021 17:15 EDT Performed On: 03/03/2021 17:15 EDT by Ladi Samson RN Discharge Process Patient Disposition : Discharge Personal Belongings With Patient : Yes Patient Education Completed : Yes Teaching Evaluation : Verbalizes understanding IV Discontinued : Not applicable Nursing Documentation Completed : Yes Ladi Samson RN - 03/03/2021 17:15 EDT ED Discharge Discharge To : Home with ambulatory/outpatient follow-up Mode Of Departure : Ambulatory Accompanied By : Spouse Discharge Instructions Reviewed With, Opportunity For Questions Given : Patient Prescriptions Given to Patient : Electronically sent Ladi Samson RN - 03/03/2021 17:15 EDT documented in this encounter Plan of Treatment Not on file documented as of this encounter Visit Diagnoses Not on filedocumented in this encounter Care Teams Placing Judge Relationship Specialty Start Date End Date Jay Howell MD [address] [place] [phone] PCP - General Emergency Medicine 11/12/23 documented as of this encounter
--- OUTSIDE RECORDS SUMMARY | 2025-07-12 08:52 | XMS_ITS | Encounter Summary ---
Author Organization [employer] ([place], [place], [place], [place]) Address [address] [place] [address] Care Team Providers Care End Frazer Name Role Phone Jay Howell MD Primary Care Provider [phone] Encounter Details Date Type Department Care Team (Late st Contact Info) Description 08/30/2020 Transcribed Document [facility] [place] Family Medicine [address] [place] [address] ProviderJessie MD [address] [place] [address] Social History Tobacco Use Types Packs/Day Years Used Date Smoking Tobacco: Never Assessed Comments Unknown Sex and Gender Information Value Date Recorded Sex Assigned at Not on file Legal Sex Female 7:30 PM CDT Gender Identity Not on file Sexual Orientation Not on file documented as of this encounter Miscellaneous Notes * Cerner Conversion Note - Jessie Yuen MD - 08/30/2020 8:14 AM PATIENT TRANSITION SPECIALIST Patient: SKYLER MONTOYA Age: 79 years Sex: Female : 1940 Associated Diagnoses: None Author: BRIANNE CHRISTENSEN MD Basic Information Pt seen and examined today, no acute issues overnight, no complaints or concerns. She is wondering when she can go home, at the bedside. Health Status Allergies: Allergic Reactions (All) Severity Not Documented Macrodantin- No reactions were documented. Morphine- Rash and rash. Nitrofurantoin- Blisters and blisters., Allergies (1) Active Reaction Macrodantin None Documented Current medications: (Selected) Inpatient Medications Ordered Coumadin: 2 mg, Oral, TuThSaSu Coumadin: 3 mg, Oral, MoWeFr DAPTOmycin + Sodium Chloride 0.9% intravenous solution 50 mL: 300 mg, 6 mL, 112 mL/Hr, IV Piggyback, [id number] DuoNeb 0.5 mg-2.5 mg/3 mL inhalation solution: 3 mL, Nebulized Inhalation, RT_Q3H, PRN: Shortness of Breath Norvasc: 10 mg, Oral, Daily Pepcid: 20 mg, Oral, BID Phenergan: 12.5 mg, Rectal, 1-Time, PRN: Nausea Plavix: 75 mg, Oral, Daily Ranexa: 1,000 mg, Oral, BID Transderm-Scop 1.5 mg transdermal film, extended release: 1 Patch, TransDermal, 1-Time, PRN: Motion Sickness Xanax: 0.25 mg, Oral, At Bedtime, PRN: Anxiety Zofran: 4 mg, IV Push, Q4H, PRN: Nausea/Vomiting Zosyn + Sodium Chloride 0.9% intravenous solution 100 mL: 3.375 Gram, 33.33 mL/Hr, IV Piggyback, Q6HInt acetaminophen-HYDROcodone 325 mg-5 mg oral tablet: 1 Tab, Oral, Q4H, PRN: Pain (Moderate 4-6) acetaminophen: 650 mg, Oral, Q4H, PRN: Other (See Comment) atorvastatin: 80 mg, Oral, At Bedtime carvedilol: 6.25 mg, Oral, BID cloNIDine: 0.1 mg, Oral, Q3H, PRN: Hypertension dorzolamide 2% ophthalmic solution: 1 Drop, Eye Right, BID heparin injection 25,000 Units + NaCl 0.45% Premix Diluent 250 mL: Titrate, IntraVENous hydrALAZINE: 100 mg, Oral, BID lactobacillus acidophilus: 1 Cap, Oral, Daily losartan: 100 mg, Oral, Daily multivitamin: 1 Tab, Oral, Daily Documented Medications Documented Bactroban 2% topical ointment: 1 Application, Topical, TID, apply to affected area as directed, 15 Gram, 0 Refill(s) Multiple Vitamins oral tablet: 1 Tab, Oral, Daily, 30 Tab, 0 Refill(s) [place] 7.5 mg-325 mg oral tablet: 1 Tab, Oral, Q6H, Prescribed #12 tablets on 08/23/2020, PRN: for pain, 0 Refill(s) Norvasc 10 mg oral tablet: 1 Tab, Oral, Daily, MAY NEED RX AT DISCHARGE; NO REFILLS AVAILABLE, 0 Refill(s) Ranexa 500 mg oral tablet, extended release: 2 Tab, Oral, BID, 0 Refill(s) Xanax 0.5 mg oral tablet: 1 Tab, Oral, At Bedtime, PRN: for anxiety/sleep, 0 Refill(s) aspirin 81 mg oral tablet: 1 Tab, Oral, Daily, 0 Refill(s) atorvastatin 80 mg oral tablet: 1 Tab, Oral, At Bedtime, MAY NEED RX AT DISCHARGE; NO REFILLS AVAILABLE, 0 Refill(s) carvedilol 6.25 mg oral tablet: 1 Tab, Oral, TID, 60 Tab, 0 Refill(s) clindamycin 300 mg oral capsule: 1 Cap, Oral, QID, for 7 Day(s), Start date: 08/23/2020, 56 Cap, 0 Refill(s) dorzolamide 2% ophthalmic solution: 1 Drop, Eye Right, BID, 0 Refill(s) hydrALAZINE 10 mg oral tablet: 1 Tab, Oral, TID, 60 Tab, 0 Refill(s) losartan 100 mg oral tablet: 1 Tab, Oral, Daily, 0 Refill(s) metFORMIN 500 mg oral tablet, extended release: 1 Tab, Oral, BID With Meals, 0 Refill(s) omeprazole 40 mg oral delayed release capsule: 1 Cap, Oral, Daily, 30 Cap, 0 Refill(s) warfarin 2 mg oral tablet: 1 Tab, Oral, TuThSaSu, 0 Refill(s) warfarin 2 mg oral tablet: 1.5 Tab, Oral, MoWeFr, 0 Refill(s), Medications (24) Active Scheduled: (15) amLODIPine 10 mg tab 10 mg 1 Tab, Oral, Daily atorvastatin 40 mg tab 80 mg 2 Tab, Oral, At Bedtime carvedilol 6.25 mg tab 6.25 mg 1 Tab, Oral, BID clopidogrel 75 mg tab 75 mg 1 Tab, Oral, Daily DAPTOmycin + NaCl 0.9% 50 mL 300 mg 6 mL, IV Piggyback, [id number] dorzolamide 2% ophth soln 10 mL 1 Drop, Eye Right, BID famotidine 20 mg tab 20 mg 1 Tab, Oral, BID hydrALAZINE 50 mg tab 100 mg 2 Tab, Oral, BID lactobacillus acidophilus cap 1 Cap, Oral, Daily losartan 50 mg tab 100 mg 2 Tab, Oral, Daily multiple vitamin (Thera) tab 1 Tab, Oral, Daily piperacillin-tazobactam + NaCl 0.9% 100 mL 3.375 Gram, IV Piggyback, Q6HInt ranolazine ER 500 mg tab 1,000 mg 2 Tab, Oral, BID warfarin 2 mg tab 2 mg 1 Tab, Oral, TuThSaSu warfarin 3 mg tab 3 mg 1 Tab, Oral, MoWeFr Continuous: (1) heparin/NaCl 0.45% 25,000 Units + Premix Diluent NaCl 0.45% 250 mL 250 mL, IntraVENous PRN: (8) acetaminophen 325 mg tab 650 mg 2 Tab, Oral, Q4H acetaminophen/HYDROcodone 325/5 mg tab 1 Tab, Oral, Q4H albuterol-ipratropium inh 3 mL 3 mL, Nebulized Inhalation, RT_Q3H ALPRAZolam 0.25 mg tab 0.25 mg 1 Tab, Oral, At Bedtime cloNIDine 0.1 mg tab 0.1 mg 1 Tab, Oral, Q3H ondansetron 4 mg/2 mL inj 4 mg 2 mL, IV Push, Q4H promethazine 12.5 mg supp 12.5 mg 1 Supp, Rectal, 1-Time scopolamine 1.5 mg/72 hr patch 1 Patch, TransDermal, 1-Time Problem list: Medical Cataract / Patient Care / Confirmed Glaucoma / Patient Care / Confirmed Coronary artery disease / SNOMED CT 6767011387 / Confirmed Stented coronary artery / SNOMED CT 1494041539 / Confirmed High blood pressure / SNOMED CT 26379449 / Confirmed Hyperlipidemia / SNOMED CT 07829162 / Confirmed COPD / SNOMED CT 43143485 / Confirmed GERD - Gastro-esophageal reflux disease / SNOMED CT 5600702603 / Confirmed Multiple renal cysts / SNOMED CT 817773276 / Confirmed Arthritis / SNOMED CT 6578137 / Confirmed Diabetes mellitus / SNOMED CT 805214835 / Confirmed Emphysema / SNOMED CT 481049264 / Confirmed Apnea, sleep / SNOMED CT 599731661 / Confirmed Hx of pulmonary embolus / SNOMED CT 660123591 / Confirmed Chronic anticoagulation / SNOMED CT 607898339 / Confirmed Atrial fibrillation with RVR / SNOMED CT 0024384209 / Confirmed Chest pain / SNOMED CT 67473389 / Complaint of History of obstructive sleep apnea / IMO 12239310 / Confirmed, Active Problems (20) Apnea, sleep Arthritis Atrial fibrillation with RVR Blood clot Cataract Chest pain Chronic anticoagulation Clotting disorder COPD Coronary artery disease Diabetes mellitus Emphysema GERD - Gastro-esophageal reflux disease Glaucoma High blood pressure History of obstructive sleep apnea Hx of pulmonary embolus Hyperlipidemia Multiple renal cysts Stented coronary artery Physical Examination VS/Measurements Vitals Signs (last 24 hrs) Last Charted Minimum Maximum Temp 98.3 (AUG 30 05:) 97.5 (AUG 29 18:45) 98.1 (AUG 30 02:00) Apical HR 68 (AUG 29 21:25) 66 (AUG 29 09:01) 68 (AUG 29 21:25) Mon HR 79 (AUG 30 05:25) 64 (AUG 29 10:30) 79 (AUG 30 05:25) Resp Rate 16 (AUG 30 05:) 16 (AUG 29 18:45) 16 (AUG 29 18:45) SBP H 156 (AUG 30 05:25) 127 (AUG 29 16:00) H 156 (AUG 30 05:25) DBP 64 (AUG 30 05:25) L 49 (AUG 29 10:30) H 98 (AUG 29 16:00) MAP 88 (AUG 30 05:25) 69 (AUG 30 02:00) 102 (AUG 29 16:00) SpO2 97 (AUG 30 05:25) 97 (AUG 29 16:00) 98 (AUG 29 10:30) General: Alert and oriented, No acute distress. Eye: Pupils are equal, round and reactive to light, Normal conjunctiva. HENT: Normocephalic, Oral mucosa is moist. Neck: Supple, No jugular venous distention, No lymphadenopathy, No thyromegaly. Respiratory: Reduced air entry basally, poor respiratory effort, respirations are non-labored Cardiovascular: Normal rate, Regular rhythm, No murmur, No edema. Gastrointestinal: Soft, Non-tender, Normal bowel sounds. Musculoskeletal: L reid with wound vac intact. there is improved erythema, no bleeding Neurologic: Alert, Oriented, No focal defects. Integumentary: Warm, Not Intact, nail deformities and pitting consistent with onychomycosis. Psychiatric: Cooperative Review / Management Results review: Labs (Last four charted values) WBC 4.9 (NOV 13) 4.5 (NOV 12) 5.1 (NOV 11) 5.2 (NOV 10) HB L 10.6 (NOV 13) L 10.5 (NOV 12) L 10.3 (NOV 11) L 10.0 (NOV 10) HCT L 32.4 (NOV 13) L 31.7 (NOV 12) L 31.2 (NOV 11) L 30.5 (NOV 10) Plt L 149 (NOV 13) L 139 (NOV 12) L 148 (NOV 11) L 140 (NOV 10) Na 138 (NOV 13) 139 (NOV 11) 138 (NOV 10) 136 (NOV 09) K 3.8 (NOV 14) L 3.3 (NOV 13) 4.5 (NOV 11) L 3.4 (NOV 10) Cl 108 (NOV 13) 109 (NOV 11) 107 (NOV 10) 105 (NOV 09) CO2 23 (NOV 13) 27 (NOV 11) 26 (NOV 10) 25 (NOV 09) BUN 16 (NOV 13) 10 (NOV 11) 10 (NOV 10) 12 (NOV 09) Cr 0.70 (NOV 13) 0.70 (NOV 11) 0.70 (NOV 10) 0.90 (NOV 09) Glu R H 108 (NOV 13) H 115 (NOV 11) H 109 (NOV 10) H 120 (NOV 09) Ca 9.1 (NOV 13) 8.8 (NOV 11) 8.4 (NOV 10) 9.1 (NOV 09) Lactic 1.8 (NOV ) C 2.3 (NOV ) C 2.1 (NOV ) PT H 13.8 (NOV 14) H 15.6 (NOV 13) H 17.8 (NOV 12) H 23.1 (NOV 11) INR H 1.3 (NOV 14) H 1.5 (NOV 13) H 1.7 (NOV 12) H 2.2 (NOV 11) AST 29 (NOV ) ALT 32 (NOV ) ALK P 63 (AUG 25) T Bili 0.9 (AUG 25) PTN 8.1 (AUG 25) ALB 4.0 (AUG 25) Troponin <0.015 (AUG 28) <0.015 (AUG 28) . Impression and Plan LLE cellulitis with hematoma -xr negative for fracture -ID consulted, IV abx dapto and zosyn -BC x 2 -wound care, wound vac, needs HH -SP ID as outpt and failed PO abx therapy PVD -underwent intervention to LLE this admission -vs added plavix, need to clarify with Dr. Verde need for ASA/Plavix/Coumadin-have asked VERONICA Mesa to clarify--stop asa per Dr. Verde and Plavix and coumadin, statin -needs future outpt RLE revascularization Lactic Acidosis, resolved - related to above Left leg hematoma -VS consulted -wound care -ok to resume coumadin per Dr. Verde, ok to use heparin gtt. there is a concern to send out on lovenox due to recent hematoma. Uncontrolled HTN, labile and improving -resume home meds -increased hydralazine to 100 BID for compliance -prn anti-htn meds Low back pain with LLE radicular sx -hx of multiple back surgeries ( 1979, 1997--Dr. Kelsey) -radiculopathy new since fall, no saddle paraesthesia/numbness/tingling/incontinence -MRI noted, pt requesting NSY consult -seen by NSY, feels no acute interventions -PT and OT diabetes with hyperglycemia -check hgba1c: 6.4 -ssi Hx of Atrial fibrillation -chronic coumadin -follow PT, INR--attempting to clarify with Dr. Moeller office goal INR/PT, 2.5-[address] Moeller -ok to resume coumadin per Dr. 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 Avtar Moeller dispo: Currently on heparin gtt for bridging for hx of PE and AFIB. Needs to work with PT. Home in 1-2 days based on INR Electronically signed by [facility], [facility] Conversion Cupola Repairer Cerner at 02/04/2023 2:10 PM CDT documented in this encounter Plan of Treatment Not on file documented as of this encounter Visit Diagnoses Not on filedocumented in this encounter Care Teams End Frazer Relationship Specialty Start Date End Date Jay Howell MD [address] [place] [phone] PCP - General Emergency Medicine 11/12/23 documented as of this encounter
--- OUTSIDE RECORDS SUMMARY | 2025-07-12 08:52 | XMS_ITS | Encounter Summary ---
Author Organization [employer] ([place], [place], [place], [place]) Address [address] [place] [address] Care Team Providers Care Rural Service Engineer Name Role Phone Jay Howell MD Primary Care Provider [phone] Encounter Details Date Type Department Care Team (Late st Contact Info) Description 12/12/2018 Transcribed Document [facility] [place] Family Medicine [address] [place] [address] ProviderJessie MD [address] [place] [address] Social History Tobacco Use Types Packs/Day Years Used Date Smoking Tobacco: Never Assessed Comments Unknown Sex and Gender Information Value Date Recorded Sex Assigned at Not on file Legal Sex Female 7:30 PM CDT Gender Identity Not on file Sexual Orientation Not on file documented as of this encounter Miscellaneous Notes * Cerner Conversion Note - Historical ProviderMD - 12/12/2018 10:41 PM WAGON DRILLER [address] [place], [place] [id number] PERSON INFORMATION Name SKYLER MONTOYA Age 77 Years 1940 Sex Female Language Congolese PCP TARA CHEN (REF), -MED Marital Status Med Service Emergency Medicine Acct# Arrival 12/12/2018 20:58:00 Visit Reason Chest pain; CHEST PAIN FOR LAST 2HRS Acuity 2 - Emergent LOS 000 01:43 Depart Date: 02/26/19 10:41 PM Address: [place] [id number] Comment: PROVIDER INFORMATION Provider Role Assigned Unassigned ANGIE TEIXEIRA MD ED Physician 12/12/2018 21:43:37 DIAGNOSIS Chest pain PHYS DOC NOTES VITALS INFORMATION Vital Sign Triage Latest Temp Source Oral Oral Temp Mode Fahrenheit Fahrenheit Temp Fahrenheit 98.2 Deg F 98.2 Deg F Temp Celsius 02 Sat 96 % 96 % Respiratory Rate 17 Breaths/Min 17 Breaths/Min Peripheral Pulse Rate 65 bpm 65 bpm Apical Heart Rate Blood Pressure 193 mmHg / 80 mmHg 193 mmHg / 80 mmHg Comment: MEDICAL INFORMATION Allergy Info: Macrodantin; morphine; nitrofurantoin Medications: Comment: DISCHARGE INFORMATION Discharge Disposition: Home Discharge Location: PATIENT EDUCATION INFORMATION Instructions: Angina Pectoris Follow up: With: Address: When: [facility] Within 2 to 3 days Comments: For further assistance with your Primary Care Physician please contact the Patient Resource Center at [phone]. With: Address: When: Follow-up with your ladle liner in the morning. Return to the closest emergency department for any acute new concerns or recurrence of symptoms. Within in AM With: Address: When: TARA CHEN [address] [facility] [address] [place] [address] Business (1) Within 2 to 3 days Comment: Electronically signed by Gayle Finnegan Conversion Aviation Operations Specialist Cerner at 02/04/2023 2:11 PM CDT documented in this encounter Plan of Treatment Not on file documented as of this encounter Visit Diagnoses Not on filedocumented in this encounter Care Teams Rural Service Engineer Relationship Specialty Start Date End Date Jay Howell MD [address] [place] [id number] PCP - General Emergency Medicine 11/12/23 documented as of this encounter
--- OUTSIDE RECORDS SUMMARY | 2025-07-12 08:52 | XMS_ITS | Encounter Summary ---
Author Organization [employer] ([place], [place], [place], [place]) Address [address] [place] [address] Care Team Providers Care Tree Doctor Name Role Phone Jay Howell MD Primary Care Provider [phone] Encounter Details Date Type Department Care Team (Late st Contact Info) Description 12/20/[address] [facility] [place] Family Medicine [address] [place] [address] ProviderJessie MD [address] [place] [address] Social History Tobacco Use Types Packs/Day Years Used Date Smoking Tobacco: Never Assessed Comments Unknown Sex and Gender Information Value Date Recorded Sex Assigned at Not on file Legal Sex Female 7:30 PM CDT Gender Identity Not on file Sexual Orientation Not on file documented as of this encounter Miscellaneous Notes * Cerner Conversion Note - Historical ProviderMD - 12/20/2018 3:14 PM SHOE CUTTER Pain Assessment Entered On: 12/21/2018 4:53 EST Performed On: 12/20/2018 23:08 EST by Deisi Aguiar RN Intervention Information: acetaminophen-HYDROcodone Performed by Deisi Aguiar RN on 12/20/2018 22:08:00 EST acetaminophen-HYDROcodone,1Tab Oral,Pain (Moderate 4-6) Pain Assessment Pain Assessment : Follow-up assessment Pain Scale Used : 0-10 Scale Deisi Aguiar RN - 12/21/2018 4:53 EST Pain Scale Intensity : 3 Deisi Aguiar RN - 12/21/2018 4:53 EST Image 4 - Images currently included in the form version of this document have not been included in the text rendition version of the form. documented in this encounter Plan of Treatment Not on file documented as of this encounter Visit Diagnoses Not on filedocumented in this encounter Care Teams Tree Doctor Relationship Specialty Start Date End Date Jay Howell MD [address] [place] [phone] PCP - General Emergency Medicine 11/12/23 documented as of this encounter
--- OUTSIDE RECORDS SUMMARY | 2025-07-12 08:52 | XMS_ITS | Encounter Summary ---
Author Organization [employer] ([place], [place], [place], [place]) Address [address] [place] [address] Care Team Providers Care C Unix Developer Name Role Phone Jay Howell MD Primary Care Provider [phone] Encounter Details Date Type Department Care Team (Late st Contact Info) Description 09/01/2020 Transcribed Document [facility] [place] Family Medicine [address] [place] [address] ProviderJessie MD [address] [place] [address] Social History Tobacco Use Types Packs/Day Years Used Date Smoking Tobacco: Never Assessed Comments Unknown Sex and Gender Information Value Date Recorded Sex Assigned at Not on file Legal Sex Female 7:30 PM CDT Gender Identity Not on file Sexual Orientation Not on file documented as of this encounter Miscellaneous Notes * Cerner Conversion Note - Historical ProviderMD - 09/01/2020 2:22 PM HEALTH INFORMATION ADMINISTRATOR Stroke/Warfarin Instructions Entered On: 09/01/2020 14:22 EST Performed On: 09/01/2020 14:22 EST by Kailee Velasquez RN Stroke/Warfarin Instructions Stroke/TIA Discharge Ins : N/A Warfarin Discharge Ins : N/A Kailee Velasquez RN - 09/01/2020 14:22 EST documented in this encounter Plan of Treatment Not on file documented as of this encounter Visit Diagnoses Not on filedocumented in this encounter Care Teams C Unix Developer Relationship Specialty Start Date End Date Jay Howell MD [address] [place] [phone] PCP - General Emergency Medicine 11/12/23 documented as of this encounter
--- OUTSIDE RECORDS SUMMARY | 2025-07-12 08:52 | XMS_ITS | Encounter Summary ---
Author Organization [employer] ([place], [place], [place], [place]) Address [address] [place] [address] Care Team Providers Care Warehouse Director Name Role Phone Jay Howell MD Primary Care Provider [phone] Encounter Details Date Type Department Care Team (Late st Contact Info) Description 09/01/2020 Transcribed Document [facility] [place] Family Medicine [address] [place] [address] ProviderJessie MD [address] [place] [address] Social History Tobacco Use Types Packs/Day Years Used Date Smoking Tobacco: Never Assessed Comments Unknown Sex and Gender Information Value Date Recorded Sex Assigned at Not on file Legal Sex Female 7:30 PM CDT Gender Identity Not on file Sexual Orientation Not on file documented as of this encounter Miscellaneous Notes * Cerner Conversion Note - Jessie ProviderMD - 09/01/2020 1:18 PM BLUE PRINTS TRIMMER On Going Discharge Planning Entered On: 09/01/2020 13:19 EST Performed On: 09/01/2020 13:18 EST by KAVITA PELLETIER RN-Glass Products InspectorCorporate Auditor Progress Note Discharge Arrangements : Patient Post-Acute Information Patient Name: SKYLER MONTOYA Gender: Female : [birth year] Age: 79 Years [place] Referral(s): Service: Organization: Business Address: Phone Number: [address], [address] Discharge Options Discussed with Patient : DME, Home Health Barriers to Discharge Identified : Clinical Condition of Patient Barriers to Discharge Unresolved : All resolved Designation of Choice Signed : Yes Patient Offered Choice/Affiliations Explained : Yes List/Info Provided Pt/Fam/Support Person : Durable medical equipment, Home health Were Referrals Sent to Post Acute Providers : Yes Does the Patient have a Floor to SNF Benefit? : Yes Physician Agreeable to Move Forward with D/C Plan? : Yes Did you Attend Multidisciplinary Rounds? : Yes KAVITA PELLETIER RN-Glass Products Inspector - 09/01/2020 13:18 EST Electronically signed by [facility] Conversion Electromechanic Cerner at 02/04/2023 2:00 PM CDT documented in this encounter Plan of Treatment Not on file documented as of this encounter Visit Diagnoses Not on filedocumented in this encounter Care Teams Warehouse Director Relationship Specialty Start Date End Date Jay Howell MD [address] [place] [phone] PCP - General Emergency Medicine 11/12/23 documented as of this encounter
--- OUTSIDE RECORDS SUMMARY | 2025-07-12 08:52 | XMS_ITS | Encounter Summary ---
Author Organization [employer] ([place], [place], [place], [place]) Address [address] [place] [address] Care Team Providers Care Phosphorus Processing Supervisor Name Role Phone aJy Howell MD Primary Care Provider [phone] Encounter Details Date Type Department Care Team (Late st Contact Info) Description 12/12/2018 Transcribed Document [facility] [place] Medicine [address] [place] [address] ProviderJessie MD [address] [place] [address] Social History Tobacco Use Types Packs/Day Years Used Date Smoking Tobacco: Never Assessed Comments Unknown Sex and Gender Information Value Date Recorded Sex Assigned at Not on file Legal Sex Female 7:30 PM CDT Gender Identity Not on file Sexual Orientation Not on file documented as of this encounter Miscellaneous Notes * Cerner Conversion Note - Jessie Yuen MD - 12/12/2018 8:58 PM BODILY INJURY ADJUSTER ED Assessment Entered On: 12/12/2018 21:53 EST Performed On: 12/12/2018 21:49 EST by Zurdo Liriano Rn-Resource ED Quick Look Assessment Level of Consciousness : Alert, Awake Affect/Behavior : Appropriate, Calm, Cooperative Orientation : Oriented x 4 Skin Temperature : Warm Zurdo Liriano Rn-Resource - 12/12/2018 21:49 EST ED General-Functional Assess Information Obtained From : Patient Preferred Communication Mode : Verbal Communication Barrier : None Primary Language : P[place] Additional Emergency Contact #1 : Johnny Montoya Additional Contact #1 Phone Number : [phone] Additional Contact #1 Relationship : spouse Any Spiritual/Cultural Needs or Requests : No Currently in Unsafe Situation : No Clinical Trials Participant *Q : None Clinical Trials Participant, None *Q : Yes Zurdo Liriano Rn-Resource - 12/12/2018 21:49 EST Social Habits Smoking Status : Former smoker, quit more than 30 days ago Smokeless Tobacco Status : Never Desires Tobacco Cessation Calc : 0 Zurdo Liriano Rn-Resource - 12/12/2018 21:49 EST Social History (As Of: 12/12/2018 21:53:53 EST) Tobacco: Smoking Status Former smoker. Comments: [...] Cardiovascular Assessment WDL : WDL with exceptions Cardiovascular Symptoms : Chest discomfort at rest Heart Rhythm : Regular Nail Bed Color : [place] Chest Pain : Yes Neck Vein Distention : Unable to visualize Capillary Refill, Left Hand : Less than/Equal to (</=) 2 seconds Capillary Refill, Right Hand : Less than/Equal to (</=) 2 seconds Capillary Refill, Left Foot : Less than/Equal to (</=) 2 seconds Capillary Refill, Right Foot : Less than/Equal to (</=) 2 seconds Heart Sounds : S1/S2 Detailed Cardiovascular Assessment : Open Zurdo Liriano Rn-Resource - 12/12/2018 21:49 EST Cardiovascular ASMT, Detailed Cardiac Rhythm : Sinus bradycardia Zurdo Liriano Rn-Resource - 12/12/2018 21:49 EST Electronically signed by Interface, [facility] Conversion Cmv Driver Cerner at 02/04/2023 2:13 PM CDT documented in this encounter Plan of Treatment Not on file documented as of this encounter Visit Diagnoses Not on filedocumented in this encounter Care Teams Phosphorus Processing Supervisor Relationship Specialty Start Date End Date Jay Howell MD [address] [place] [phone] PCP - General Emergency Medicine 11/12/23 documented as of this encounter
--- OUTSIDE RECORDS SUMMARY | 2025-07-12 08:52 | XMS_ITS | Encounter Summary ---
Author Organization [employer] ([place], [place], [place], [place]) Address [address] [place] [address] Care Team Providers Care Courtroom Reporter Name Role Phone Jay Howell MD Primary Care Provider [phone] Encounter Details Date Type Department Care Team (Late st Contact Info) Description 12/20/2018 Transcribed Document [facility] [place] Family Medicine [address] [place] [address] ProviderJessie MD [address] [place] [address] Social History Tobacco Use Types Packs/Day Years Used Date Smoking Tobacco: Never Assessed Comments Unknown Sex and Gender Information Value Date Recorded Sex Assigned at Not on file Legal Sex Female 7:30 PM CDT Gender Identity Not on file Sexual Orientation Not on file documented as of this encounter Miscellaneous Notes * Cerner Conversion Note - Jessie Yuen MD - 12/20/2018 8:00 AM CREDIT COORDINATOR Patient: SKYLER MONTOYA Age: 77 years Sex: Female : 1940 Associated Diagnoses: None Author: FREDY PACHECO MD-CAR Basic Information PCP: Dr. Moeller Callisthenics Instructor: Stephania Garcia MD Chief Complaint Pre-op clearance; shoulder surgery with Dr. Prieto Watters at [facility] Stress test 12/06/18; abnormal History of Present Illness This is a 77 year old female with history of CAD s/p CABG 1992 with subsequent stent in 2010, ASD; small on ECHO - remote, Paroxysmal Atrial Fibrillation with chronic coumadin, HTN, HLD, carotid artery stenosis s/p stent, DMII, and DANTE. He was seen by Dr Dumas for evaluation of intermittent chest pains, dyspnea, palpitations and dizziness. Her sx can occur with more then low level exertion. The palpitatoins can occur at rest. She underwent aLexiscan stress test on December 06, 2018 which revealed anterior ischemia. She has been scheduled for elective cardiac cath. Note; she has upcoming shoulder surgery for which she needs cardiac clearance. Review of Systems Constitutional: Negative except as [...] Active Reaction Macrodantin None Documented Home Medications (16) Active acetaminophen-HYDROcodone 325 mg-5 mg oral tablet 1 Tab, PRN, Oral, BID aspirin 81 mg oral tablet 81 mg = 1 Tab, Oral, Daily atorvastatin 80 mg oral tablet 80 mg = 1 Tab, Oral, At Bedtime Combigan ophthalmic solution 1 Drop, Eye Right, BID Coreg 3.125 mg oral tablet 3.125 mg = 1 Tab, Oral, BID Coumadin See Instructions hydrALAZINE 10 mg oral tablet 10 mg = 1 Tab, Oral, BID levETIRAcetam 250 mg oral tablet 500 mg = 2 Tab, Oral, BID losartan 100 mg oral tablet 100 mg = 1 Tab, Oral, Daily metformin 500 mg oral tablet 500 mg = 1 Tab, Oral, BID Multiple Vitamins oral tablet 1 Tab, Oral, Daily omeprazole 40 mg oral delayed release capsule 40 mg = 1 Cap, Oral, Daily Ranexa 500 mg oral tablet, extended release 1,000 mg = 2 Tab, Oral, BID warfarin 1 mg oral tablet See Instructions Xanax 0.5 mg, PRN, Oral, Daily Xanax 0.25 mg oral tablet 0.25 mg = 1 Tab, PRN, Oral, At Bedtime Allergies: Allergic Reactions (Selected) Severity Not Documented Macrodantin- No reactions were documented. Morphine- Rash and rash. Nitrofurantoin- Blisters and blisters. Current medications: (Selected) Inpatient Medications Ordered Sodium Chloride 0.9% intravenous solution 500 mL: Titrate, IntraVENous Prescriptions Prescribed Coreg 3.125 mg oral tablet: 1 Tab, Oral, BID, Hold for HR less than 55, 60 Tab, 1 Refill(s) Ranexa 500 mg oral tablet, extended release: 2 Tab, Oral, BID, 120 Tab, 0 Refill(s) hydrALAZINE 10 mg oral tablet: 1 Tab, Oral, BID, 60 Tab, 0 Refill(s) Documented Medications Documented Combigan 0.2%-0.5% ophthalmic solution: 1 Drop, Eye Right, BID, 0 Refill(s) Coumadin: 2 mg, Oral, Daily, 0 Refill(s) Durezol 0.05% ophthalmic emulsion: 1 Drop, Eye Right, QID, 0 Refill(s) Multiple Vitamins oral tablet: 1 Tab, Oral, Daily, 30 Tab Ranexa 500 mg oral tablet, extended release: 1 Tab, Oral, Daily, 0 Refill(s) Xanax 0.25 mg oral tablet: 1 Tab, Oral, At Bedtime, PRN: Insomnia, 0 Refill(s) Xanax: 0.5 mg, Oral, At Bedtime, PRN: as needed for anxiety, 0 Refill(s) acetaminophen-HYDROcodone 325 mg-5 mg oral tablet: 1 Tab, Oral, BID, PRN: for pain, 15 Tab, 0 Refill(s) amLODIPine: 5 mg, Oral, Daily, 0 Refill(s) aspirin 81 mg oral tablet: 1 Tab, Oral, Daily, 0 Refill(s) atorvastatin 80 mg oral tablet: 1 Tab, Oral, At Bedtime, 0 Refill(s) carvedilol: 3.125 mg, Oral, BID, 0 Refill(s) dorzolamide 2% ophthalmic solution: 1 Drop, Eyes Both, BID, 0 Refill(s) hydrALAZINE: 10 mg, Oral, BID, 0 Refill(s) levETIRAcetam 250 mg oral tablet: 1 Tab, Oral, BID, 120 Tab, 0 Refill(s) losartan 100 mg oral tablet: 1 Tab, Oral, Daily, 30 Tab, 0 Refill(s) metformin 500 mg oral tablet: 1 Tab, Oral, BID, 180 Tab, 0 Refill(s) omeprazole 40 mg oral delayed release capsule: 1 Cap, Oral, Daily, 30 Cap, 0 Refill(s) warfarin 1 mg oral tablet: See Instructions, 1MG Tab Oral Daily MON, WED, FRI, 0 Refill(s) Problem list: All Problems Chest pain / SNOMED CT 84814394 / Complaint of Cataract / Patient Care / Confirmed Glaucoma / Patient Care / Confirmed Coronary artery disease / SNOMED CT 2320302947 / Confirmed Stented coronary artery / SNOMED CT 1356421244 / Confirmed High blood pressure / SNOMED CT 86706673 / Confirmed Hyperlipidemia / SNOMED CT 31195148 / Confirmed Clotting disorder / SNOMED CT 906456058 / Confirmed COPD / SNOMED CT 88157329 / Confirmed GERD - Gastro-esophageal reflux disease / SNOMED CT 7125871060 / Confirmed Multiple renal cysts / SNOMED CT 609846157 / Confirmed UTI - Urinary tract infection / SNOMED CT 3383005462 / Confirmed Arthritis / SNOMED CT 4030974 / Confirmed Diabetes mellitus / SNOMED CT 246886034 / Confirmed Blood clot / SNOMED CT 947665685 / Confirmed Emphysema / SNOMED CT 078944673 / Confirmed Apnea, sleep / SNOMED CT 713356562 / Confirmed Hx of pulmonary embolus / SNOMED CT 055013619 / Confirmed Chronic anticoagulation / SNOMED CT 187705440 / Confirmed Atrial fibrillation with RVR / SNOMED CT 9579813053 / Confirmed History of obstructive sleep apnea / IMO 16125139 / Confirmed Histories No education data available. Social & [...] History: Active Cataract Glaucoma Coronary artery disease (6836165487) Stented coronary artery (3872924549) High blood pressure (78530405) Hyperlipidemia (81834099) COPD (40795864) GERD - Gastro-esophageal reflux disease (0653883721) Multiple renal cysts (672809038) UTI - Urinary tract infection (6139108884) Arthritis (9564597) Diabetes mellitus (770848093) Emphysema (731520884) Apnea, sleep (115659698) Hx of pulmonary embolus (253116401) Chronic anticoagulation (112287649) Atrial fibrillation with RVR (1236941643) Family History: Cardiomyopathy Child Stroke Brother Heart attack Brother Sister Leukemia Child Cancer Father Mother Sister Coronary heart disease Child Procedure history: femur repair. Appendectomy (156760377). uterine suspension. Hysterectomy (068849542). back surgury. Coronary artery bypass graft (377517043). Cholecystectomy (51676601). Hip replacement (7024313908). cataract surgury. Social History Social & Psychosocial Habits Alcohol 08/13/2013 Alcohol Use in Last Twelve Months No Home/Environment 12/14/2014 Lives with: Spouse Living situation: Home/Independent Nutrition/Health 08/06/2014 Caffeine intake amount: 2 Substance Abuse 08/13/2013 Recreational Drug Use History No Tobacco 11/23/2016 Smoking Status Former smoker Comment: quite 1992 - 11/23/2016 13:03 - DAVIDA ISAAC RN . Physical Examination VS/Measurements No qualifying data available General: Alert and oriented. Eye: Pupils are equal, round and reactive to light. HENT: Normocephalic. Neck: Supple, No carotid bruit, No jugular venous distention. Respiratory: Lungs are clear to auscultation, Respirations are non-labored, Breath sounds are equal. Cardiovascular: Normal rate, Regular rhythm, No murmur, No gallop, Good pulses equal in all extremities. Gastrointestinal: Soft, Non-tender, Non-distended, Normal bowel sounds. Musculoskeletal: Normal range of motion, Normal strength. Integumentary: Warm, Dry, [place]. Neurologic: Alert, Oriented. Psychiatric: Cooperative. Review / Management Results review: No qualifying data available. Impression and Plan IMPRESSION: Recurrent exertional angina . Reversible anterior ischemia, EF 68 - 70% by Lexiscan cardiolite 2-. Remote Hx of CABG 1992 & LAD/Dx stent 2010. Abnormal Lexiscan Paroxysmal Atrial Fibrillation with recent recurrent palpitations chronic coumadin HTN HLD Carotid artery stenosis s/p stent DMII DANTE PLAN; Left Heart Catheterization via right femoral approach with possible percutaneous intervention with Dr. Fredy Pacheco. Risks and benefits discussed. Patient wishes to proceed. Hold Metformin per post cath protocol. Continue other current CV meds. Pt encouraged to discuss SGLT2 inh with primary MD. Resume coumadin days post cath. Electronically signed by Sivan, [facility] Conversion Hole Digger Cerner at 02/04/2023 2:21 PM CDT documented in this encounter Plan of Treatment Not on file documented as of this encounter Visit Diagnoses Not on filedocumented in this encounter Care Teams Courtroom Reporter Relationship Specialty Start Date End Date Jay Howell MD [address] [place] [phone] PCP - General Emergency Medicine 11/12/23 documented as of this encounter
--- OUTSIDE RECORDS SUMMARY | 2025-07-12 08:52 | XMS_ITS | Encounter Summary ---
Author Organization [employer] ([place], [place], [place], [place]) Address [address] [place] [address] Care Team Providers Care Dog Groomer Name Role Phone Jay Howell MD Primary Care Provider [phone] Encounter Details Date Type Department Care Team (Late st Contact Info) Description 08/29/2020 Transcribed Document [facility] [place] Family Medicine [address] [place] [address] ProviderJessie MD [address] [place] [address] Social History Tobacco Use Types Packs/Day Years Used Date Smoking Tobacco: Never Assessed Comments Unknown Sex and Gender Information Value Date Recorded Sex Assigned at Not on file Legal Sex Female 7:30 PM CDT Gender Identity Not on file Sexual Orientation Not on file documented as of this encounter Miscellaneous Notes * Cerner Conversion Note - Jessie Yuen MD - 08/29/2020 8:24 AM DIRECTOR TECHNICAL Patient: SKYLER MONTOYA Age: 79 years Sex: Female : 1940 Associated Diagnoses: None Author: SLICK BRADLEY, [facility] Ms. Montoya is 79 yo female admitted for L leg debridement for hematoma evacuation after a fall. Pharmacy was asked to assist with warfarin dosing. Medication: warfarin Indication: A. fib, PE (after hip replacement), clotting disorder Goal INR: 2.5-3.5, 2.5-3.[address] Moeller's office (INR on admission was 3.1) Home warfarin dose: 2mg TuThSaSu, and 3mg MWF Medications Reviewed: plavix can increase risk of bleeding Vitals Signs (last 24 hrs) Last Charted Minimum Maximum Temp 98.3 (AUG 29 05:57) 98 (AUG 29 00:41) 98.5 (AUG 28 14:55) Apical HR 68 (AUG 28 21:23) 65 (AUG 28 09:01) 68 (AUG 28 21:23) Mon HR 69 (AUG 29 05:57) 64 (AUG 28 14:55) 70 (AUG 28 18:00) Resp Rate 16 (AUG 29 05:57) 16 (AUG 29 05:57) 16 (AUG 29 05:57) SBP H 146 (AUG 29 05:57) 140 (AUG 28 14:55) H 155 (AUG 29 00:41) DBP L 57 (AUG 29 05:57) L 46 (AUG 28 21:10) 61 (AUG 29 00:41) MAP 80 (AUG 29 05:57) 71 (AUG 28 18:00) 83 (AUG 29 00:41) SpO2 98 (AUG 28 18:00) 96 (AUG 28 14:55) 98 (AUG 28 08:49) Labs (Last four charted values) WBC 4.9 (AUG 29) 4.5 (NOV 12) 5.1 (NOV 11) 5.2 (NOV ) HB L 10.6 (NOV 13) L 10.5 [...] 138 (NOV 10) 136 (NOV 09) K L 3.3 (NOV 13) 4.5 (NOV 11) L 3.4 (NOV 10) 3.7 (NOV 09) Cl 108 (NOV 13) 109 (NOV 11) 107 (NOV 10) 105 (NOV 09) CO2 23 (NOV 13) 27 (NOV 11) 26 (NOV 10) 25 (NOV 09) BUN 16 (NOV 13) 10 (NOV 11) 10 (NOV 10) 12 (NOV 09) Cr 0.70 (AUG 29) 0.70 (AUG 27) 0.70 (AUG 26) 0.90 (AUG 25) Glu R H 108 (AUG 29) H 115 (AUG 27) H 109 (AUG 26) H 120 (AUG 25) Ca 9.1 (AUG 29) 8.8 (AUG 27) 8.4 (AUG 26) 9.1 (AUG 25) Lactic 1.8 (AUG 25) C 2.3 (AUG 25) C 2.1 (AUG 25) PT H 15.6 (AUG 29) H 17.8 (AUG 28) H 23.1 (AUG 27) H 25.0 (AUG 26) INR H 1.5 (AUG 29) H 1.7 (AUG 28) H 2.2 (AUG 27) H 2.4 (AUG 26) AST 29 (AUG 25) ALT 32 (AUG 25) ALK P 63 (AUG 25) T Bili 0.9 (AUG 25) PTN 8.1 (AUG 25) ALB 4.0 (AUG 25) Troponin <0.015 (AUG 28) <0.015 (AUG 28) Date 08/25 08/26 08/27 08/28 08/29 INR 3.1 2.4 2.2 1.7 1.5 Dose ---- ---- ---- 2 Plan: Continue home warfarin dose, 3mg on MWF and 2mg on TuThSaSu. Follow closely with daily INR. Goal INR per attending, 2.5-3.5 (INR--attempting to clarify with Dr. Moeller office goal INR/PT, 2.5-3.[address] Moeller) Monitor for S&S of bleeding, H&H stable over last several days. Heparin gtt started per attending as bridge therapy, NO BOLUS. Thank You, Slick Bradley, KellD documented in this encounter Plan of Treatment Not on file documented as of this encounter Visit Diagnoses Not on filedocumented in this encounter Care Teams Dog Groomer Relationship Specialty Start Date End Date Jay Howell MD [address] [place] [phone] PCP - General Emergency Medicine 11/12/23 documented as of this encounter
--- OUTSIDE RECORDS SUMMARY | 2025-07-12 08:52 | XMS_ITS | Encounter Summary ---
Author Organization [employer] ([place], [place], [place], [place]) Address [address] [place] [address] Care Team Providers Care Database Engineer Name Role Phone Jay Howell MD Primary Care Provider [phone] Encounter Details Date Type Department Care Team (Late st Contact Info) Description 08/29/2020 Transcribed Document [facility] [place] Family Medicine [facility] [address] ProviderJessie MD [address] [place] [address] Social History Tobacco Use Types Packs/Day Years Used Date Smoking Tobacco: Never Assessed Comments Unknown Sex and Gender Information Value Date Recorded Sex Assigned at Not on file Legal Sex Female 7:30 PM CDT Gender Identity Not on file Sexual Orientation Not on file documented as of this encounter Miscellaneous Notes * Cerner Conversion Note - Historical ProviderMD - 08/29/2020 1:32 PM ALUMINUM HYDROXIDE PROCESS OPERATOR Discharge Summary, PT Entered On: 08/29/2020 13:33 EST Performed On: 08/29/2020 13:32 EST by ERIC OH, PT Discharge Summary Discharge Summary Provider Notified : Nursing, Physical Therapy, Other: patient Reason for Discharge : Other: EVAL ONLY Discharge Equipment, PT : None Discharge Summary Comment, PT : pt seen for PTx eval to ensure safety with mobility prior to discharge home as adm was for injury sustained at home pt completely independent ERIC OH, PT - 08/29/2020 13:32 EST Electronically signed by [facility] Conversion Pilot Supervisor Cerner at 02/04/2023 2:09 PM CDT documented in this encounter Plan of Treatment Not on file documented as of this encounter Visit Diagnoses Not on filedocumented in this encounter Care Teams Database Engineer Relationship Specialty Start Date End Date Jay Howell MD [address] [place] [phone] PCP - General Emergency Medicine 11/12/23 documented as of this encounter
--- OUTSIDE RECORDS SUMMARY | 2025-07-12 08:52 | XMS_ITS | Clinical Summary ---
Author Organization [employer] ([place], [place], [place], [place]) Address [address] [place] [address] Care Team Providers Care Business Intelligence Engineer Name Role Phone Jay Howell MD [...] Date Kennedy rded Speak language other than Australian at home Not on file 10/30/2023 Want [...] 11/12/2023 1:05 PM EST Plan of Treatment Health Maintenance Due Date Last Done Comments Medicare Initial AWV G0438 DXA SCAN 1940 Depression Screening (12+) 1951 Shingles Vaccine (Zoster) (1 of 2) 12/23/1989 Pneumococcal 50+ years (2 of 2 - PCV) 09/28/2001 09/28/2000 Respiratory Syncytial Virus (RSV) Adult or (1 - 1-dose 75+ series) 12/23/2014 DTAP/TDAP/TD VACCINES (2 - T d or Tdap) 07/07/2015 07/07/2005 Falls Risk Screening 10/17/2024 Tobacco Cessation Counseling and Screening (12+) 11/12/2024 11/12/2023 COVID-19 VACCINE (4 - 2024-2 6 season) 2025 12/09/2021, 02/17/2021, 01/27/2021 Influenza Vaccine (#1) 2025 , 07/06/2021, 06/05/2019, Additional history exists Insurance [place] [address] [place] [address] SUPP Advance Directives For more information, please contact: [phone] * Full Code (Latest Code Status on File) Date Activated Date Inactivated Comments 11/25/2022 10:41 AM 11/26/2022 5:33 PM * Full Code Date Activated Date Inactivated Comments 11/25/2022 8:11 AM 11/25/2022 10:41 AM -Attempt Resu scitation if person has no pulse and is not breathing. -If no pulse or not breathing attempt CPR/CODE. -Call Rapid Response if patient is in distress. Care Teams Business Intelligence Engineer Relationship Specialty Start Date End Date Jay Howell MD [address] [place] [phone] PCP - General Emergency Medicine 11/12/23
--- OUTSIDE RECORDS SUMMARY | 2025-07-12 08:52 | XMS_ITS | Encounter Summary ---
Author Organization [employer] ([place], [place], [place], [place]) Address [address] [place] [address] Care Team Providers Care Stamping Die Maker Name Role Phone Jay Howell MD Primary Care Provider [phone] Encounter Details Date Type Department Care Team (Late st Contact Info) Description 12/20/2018 Transcribed Document [facility] [place] [address] [place] [address] ProviderJessie MD [address] [place] [address] Social History Tobacco Use Types Packs/Day Years Used Date Smoking Tobacco: Never Assessed Comments Unknown Sex and Gender Information Value Date Recorded Sex Assigned at Not on file Legal Sex Female 7:30 PM CDT Gender Identity Not on file Sexual Orientation Not on file documented as of this encounter Miscellaneous Notes * [employer]ner Conversion Note - Historical ProviderMD - 12/20/2018 1:13 PM CUBE MACHINE TENDER Advance Directive Entered On: 12/20/2018 13:35 EST Performed On: 12/20/2018 13:13 EST by ARTHUR HONEYCUTT Advance Directive Patient has Advance Directive *Q : No, patient requests assist formulating Advance Directive Patient Given Information about AD : Yes Advance Directive Comment : Provided advance directive info. ARTHUR HONEYCUTT - 12/20/2018 13:35 EST Electronically signed by Sivan [facility] Conversion Wood Cut Engraver Cerner at 02/04/2023 1:55 PM CDT documented in this encounter Plan of Treatment Not on file documented as of this encounter Visit Diagnoses Not on filedocumented in this encounter Care Teams Stamping Die Maker Relationship Specialty Start Date End Date Jay Howell MD [address] [place] [phone] PCP - General Emergency Medicine 11/12/23 documented as of this encounter
--- OUTSIDE RECORDS SUMMARY | 2025-07-12 08:52 | XMS_ITS | Encounter Summary ---
Author Organization [employer] ([place], [place], [place], [place]) Address [address] [place] [address] Care Team Providers Care Farrowing Manager Name Role Phone Jay oHwell MD Primary Care Provider [phone] Encounter Details Date Type Department Care Team (Late st Contact Info) Description 09/01/2020 Transcribed Document [facility] [place] Family Medicine [address] [place] [address] ProviderJessie MD [address] [place] [address] Social History Tobacco Use Types Packs/Day Years Used Date Smoking Tobacco: Never Assessed Comments Unknown Sex and Gender Information Value Date Recorded Sex Assigned at Not on file Legal Sex Female 7:30 PM CDT Gender Identity Not on file Sexual Orientation Not on file documented as of this encounter Miscellaneous Notes * Cerner Conversion Note - Jessie Yuen MD - 09/01/2020 1:19 PM VALIDATION SPECIALIST Final Discharge Planning Entered On: 09/01/2020 13:20 EST Performed On: 09/01/2020 13:19 EST by KAVITA PELLETIER RN-Braddisher Final Discharge Planning Discharge Arrangements : Patient Post-Acute Information Patient Name: SKYLER MONTOYA Gender: Female : [birth year] Age: 79 Years [place] Referral(s): Service: Organization: Business Address: Phone Number: [address], [address] Patient Offered Choice/Affiliations Explained : Yes Designation of Choice Signed : Yes Important Medicare Message Reviewed With : Patient Important Medicare Message Reviewed D/T : 09/01/2020 9:00 EST Transportation Needs : Family/Friend Follow Up Appointment Scheduled : Yes Is Patient High/Moderate Readmission Risk? : No Patient/Family Notified of Plan : Yes Support Person/Pt Rep Notified of Plan : Yes Patient/Family Notified : Spouse. Is Patient Ready for Discharge? : Yes Physician Notified Patient is Ready for Discharge? : Yes Discharge To Care Management : Home Health Services (Related/SOC within 3 days)- KAVITA PELLETIER RN-Braddisher - 09/01/2020 13:19 EST Final Narrative Note Final Narrative Note : INR-1.4. Pt will dc home today on Lovenox to bridge Coumadin. Orders for HH to INR sent to [facility] and hui jauregui in intake and of pt's dc home today. F/u appts scheduled with PCP, Vasc, and ID. No other CM needs noted. KAVITA PELLETIER RN-Braddisher - 09/01/2020 13:19 EST documented in this encounter Plan of Treatment Not on file documented as of this encounter Visit Diagnoses Not on filedocumented in this encounter Care Teams Farrowing Manager Relationship Specialty Start Date End Date Jay Howell MD [address] [place] [phone] PCP - General Emergency Medicine 11/12/23 documented as of this encounter
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
--- OUTSIDE RECORDS SUMMARY | 2025-07-12 08:52 | XMS_ITS | Encounter Summary ---
Author Organization [employer] ([place], [place], [place], [place]) Address [address] [place] [address] Care Team Providers Care Safe Deposit Box Rental Clerk Name Role Phone Jay Howell MD Primary Care Provider [phone] Encounter Details Date Type Department Care Team (Late st Contact Info) Description 12/20/2018 Transcribed Document [facility] [place] [address] [place] [address] ProviderJessie MD [address] [place] [address] Social History Tobacco Use Types Packs/Day Years Used Date Smoking Tobacco: Never Assessed Comments Unknown Sex and Gender Information Value Date Recorded Sex Assigned at Not on file Legal Sex Female 7:30 PM CDT Gender Identity Not on file Sexual Orientation Not on file documented as of this encounter Miscellaneous Notes * Cerner Conversion Note - Historical ProviderMD - 12/20/2018 12:01 PM SUBSTATION DESIGNER Spiritual Care Assessment Entered On: 12/20/2018 13:37 EST Performed On: 12/20/2018 13:13 EST by ARTHUR HONEYCUTT General Information Initial Visit : Yes Referred by : Patient Referral Reason Comment : Advance directive Ministry Provided to : Patient, Family/Significant other Latter Day Preference : Ep[employer]opalian ARTHUR HONEYCUTT - 12/20/2018 13:35 EST Spiritual Assessment Spiritual Assessment Comment/Summary Points : Provided advance directive info. and grief support to patient and who recently exprienced the of their son. Spirital Assessment Comment/Summary Report : SPIRITUAL ASSESSMENT COMMENT/SUMMARY No qualifying data available. ARTHUR HONEYCUTT P - 12/20/2018 13:35 EST Interventions Advance Directive Information Provided : Yes Emotional Support : Empathic/Engaged listening, Family/Significant other supported, Feelings expressed, Information provided Spiritual and Latter Day : Spiritual/Latter Day support provided Change, Adjustment and Loss : Provided support for current loss/grief ARTHUR HONEYCUTT P - 12/20/2018 13:35 EST Electronically signed by [facility] Conversion Mounting Machine Operator Cerner at 02/04/2023 2:01 PM CDT documented in this encounter Plan of Treatment Not on file documented as of this encounter Visit Diagnoses Not on filedocumented in this encounter Care Teams Safe Deposit Box Rental Clerk Relationship Specialty Start Date End Date Jay Howell MD [address] [place] [phone] PCP - General Emergency Medicine 11/12/23 documented as of this encounter
--- OUTSIDE RECORDS SUMMARY | 2025-07-12 08:52 | XMS_ITS | Encounter Summary ---
Author Organization [employer] ([place], [place], [place], [place]) Address [address] [address] Care Team Providers Care Supervisor Curing Room Name Role Phone Jay Howell MD Primary Care Provider [phone] Encounter Details Date Type Department Care Team (Late st Contact Info) Description 09/29/2020 Transcribed Document [facility] [place] Family Medicine [address] [place] [address] ProviderJessie MD [address] [place] [address] Social History Tobacco Use Types Packs/Day Years Used Date Smoking Tobacco: Never Assessed Comments Unknown Sex and Gender Information Value Date Recorded Sex Assigned at Not on file Legal Sex Female 7:30 PM CDT Gender Identity Not on file Sexual Orientation Not on file documented as of this encounter Miscellaneous Notes * Cerner Conversion Note - Historical ProviderMD - 09/29/2020 5:14 PM JOB ESTIMATOR Patient: SKYLER MONTOYA Age: 79 Years Sex: Female : 1940 Subjective Patient presents for follow up for wound care. Has been changing dressing at home. Review of Systems Denies N/F/V/C/CP/SOB Objective Physical Exam DERM: Wound located anterior left tibia measures 1.8 x 1.1 x 0.2 cm post debridement. Wound base is completely granular and no longer with undermining. No longer with deep deficit. There is no active drainage visualized, no malodor. No additional lesions, lacerations or ulcerations identified. Skin is thinned and atrophic in appearance with decreased hair growth noted to digits. Nails are thickened and discolored. VASC: DP pulses palpable bilateral, PT pulses palpable bilateral. Foot feels warm to cool. No edema noted bilateral. No pain with posterior calf squeeze. NEURO: Intact LTPS bilateral plantar foot/toes using SWMF. No increased pain. MSK: Muscle strength 5/5 to all major muscle groups evaluated in the lower extremity. No pain with palpation. Assessment/Plan S81.802D Lower left leg wound I73.9 Peripheral vascular disease - Patient seen and evaluated in the wound care center. - Discussed treatment and etiology of wound. Explained the need to optimize blood flow, effectively offload the area, perform at regular intervals in office debridement and regular dressing changes. - Sharp debridement performed using 5 mm ring curette, topical lidocaine anesthesia, excised wound bed slough down to and including the subcutaneous fat layer, hemostasis gauze, patient tolerated. - Patient should keep wound dry in the shower, keep covered with dressing at all times - Dressed ulceration with Yasmine Ag, Allevyn foam - pt will change MWF - Patient is s/p vascular intervention, palpable pulses - Will resume care with either myself or vascular surgery at next visit Return to wound care center within two week Medications atorvastatin 80 mg oral tablet, 80 mg= 1 Tab, Oral, At Bedtime carvedilol 6.25 mg oral tablet, 6.25 mg= 1 Tab, Oral, TID Coumadin 3 mg oral tablet, 3 mg= 1 Tab, Oral, Daily dorzolamide 2% ophthalmic solution, 1 Drop, Eye Right, BID hydrALAZINE 100 mg oral tablet, 100 mg= 1 Tab, Oral, BID lactobacillus acidophilus oral tablet, 2 Tab, Oral, Daily losartan 100 mg oral tablet, 100 mg= 1 Tab, Oral, Daily metFORMIN 500 mg oral tablet, extended release, 500 mg= 1 Tab, Oral, BID With Meals Multiple Vitamins oral tablet, 1 Tab, Oral, Daily Norvasc 10 mg oral tablet, 10 mg= 1 Tab, Oral, Daily omeprazole 40 mg oral delayed release capsule, 40 mg= 1 Cap, Oral, Daily Plavix 75 mg oral tablet, 75 mg= 1 Tab, Oral, Daily Ranexa 500 mg oral tablet, extended release, 1000 mg= 2 Tab, Oral, BID terbinafine 250 mg oral tablet, 250 mg= 1 Tab, Oral, Daily Xanax 0.5 mg oral tablet, 0.5 mg= 1 Tab, Oral, At Bedtime, PRN Lab Results Wound culture 08/31/2020 with no growth Diagnostic Results Vascular Studies 08/25/2020 Summary RIGHT: Abnormal arterial runoff disease present starting at the level of the PELLET PREPARATION OPERATOR. Non significant, non-flow restricting plaque noted at common femoral artery. 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 There is a significant (50-75%) stenosis of the distal PELLET PREPARATION OPERATOR. Non significant, non-flow restricting plaque noted at DPA. PELLET PREPARATION OPERATOR & DPA non compressible for FERNIE. TBI: Non compressible. LEFT: Abnormal arterial runoff disease present starting at the level of the PELLET PREPARATION OPERATOR. Non significant, non-flow restricting plaque noted at common femoral artery. There is a severe (>75%) stenosis of the distal PELLET PREPARATION OPERATOR. PELLET PREPARATION OPERATOR & DPA non compressible for FERNIE. TBI: Non compressible. documented in this encounter Plan of Treatment Not on file documented as of this encounter Visit Diagnoses Not on filedocumented in this encounter Care Teams Supervisor Curing Room Relationship Specialty Start Date End Date Jay Howell MD [address] [place] [phone] PCP - General Emergency Medicine 11/12/23 documented as of this encounter
--- OUTSIDE RECORDS SUMMARY | 2025-07-12 08:52 | XMS_ITS | Encounter Summary ---
Author Organization [employer] ([place], [place], [place], [place]) Address [address] [place] [address] Care Team Providers Care Coremaker Name Role Phone Jay Howell MD Primary Care Provider [phone] Encounter Details Date Type Department Care Team (Late st Contact Info) Description 09/01/2020 Transcribed Document [facility] [place] [address] [place] [address] ProviderJessie MD [address] [place] [address] Social History Tobacco Use Types Packs/Day Years Used Date Smoking Tobacco: Never Assessed Comments Unknown Sex and Gender Information Value Date Recorded Sex Assigned at Not on file Legal Sex Female 7:30 PM CDT Gender Identity Not on file Sexual Orientation Not on file documented as of this encounter Miscellaneous Notes * Cerner Conversion Note - Jessie Yuen MD - 09/01/2020 9:57 AM MANAGING COGNITIVE ENGINEER TARA CHEN, [address] [place] [id number] Re: SKYLER MONTOYA Date of Visit: 08/25/2020 Dear TARA CHEN Thank you for allowing me to participate in your patient's care. Please see the accompanying information that I would like to share with you regarding your patient. This Document is confidential and intended solely for the use of the individual or entity to which it is addressed. If you are not the named addressee, please disregard and do not disseminate, distribute or copy this information. If you are the intended recipient any disclosure of this information and its contents is strictly prohibited. Sincerely, KAREN PUTNAM [address] [facility] [address] [place] [id number] The following document(s) were included in the letter: September 01, 2020 09:27:18 EST - (09/01/2020) Discharge Note documented in this encounter Plan of Treatment Not on file documented as of this encounter Visit Diagnoses Not on filedocumented in this encounter Care Teams Coremaker Relationship Specialty Start Date End Date Jay Howell MD [address] [place] [phone] PCP - General Emergency Medicine 11/12/23 documented as of this encounter
--- OUTSIDE RECORDS SUMMARY | 2025-07-12 08:52 | XMS_ITS | Encounter Summary ---
Author Organization [employer] ([place], [place], [place], [place]) Address [address] [place] [address] Care Team Providers Care Recruitment And Outreach Assistant Name Role Phone Jay Howell MD Primary Care Provider [phone] Encounter Details Date Type Department Care Team (Late st Contact Info) Description 08/29/2020 Transcribed Document [facility] [place] [address] [place] [address] ProviderJessie MD [address] [place] [address] Social History Tobacco Use Types Packs/Day Years Used Date Smoking Tobacco: Never Assessed Comments Unknown Sex and Gender Information Value Date Recorded Sex Assigned at Not on file Legal Sex Female 7:30 PM CDT Gender Identity Not on file Sexual Orientation Not on file documented as of this encounter Miscellaneous Notes * [employer] Conversion Note - Jessie ProviderMD - 08/29/2020 2:00 AM ASTRO TECHNICIAN School Psychologist Assistant Details Entered On: 08/29/2020 6:08 EST Performed On: 08/29/2020 2:00 EST by Kervin Kulkarni RN Order Details Isolation Precautions Order Detail : Standard Precautions Order Detail : N/A IV Order Detail : 1 Lift/Transfer : Independent Central Line Order Detail : No Room Service : Not Appropriate Arterial Line : No Patient Needs Meds Crushed/Liquid : No Kervin Kulkarni RN - 08/29/2020 6:07 EST Electronically signed by Sivan [facility] Conversion Sustainability Executive Director Cerner at 02/04/2023 1:58 PM CDT documented in this encounter Plan of Treatment Not on file documented as of this encounter Visit Diagnoses Not on filedocumented in this encounter Care Teams Recruitment And Outreach Assistant Relationship Specialty Start Date End Date Jay Howell MD [address] [place] [phone] PCP - General Emergency Medicine 11/12/23 documented as of this encounter
--- OUTSIDE RECORDS SUMMARY | 2025-07-12 08:52 | XMS_ITS | Encounter Summary ---
Author Organization [employer] ([place], [place], [place], [place]) Address [address] [place] [address] Care Team Providers Care Station Mechanic Helper Name Role Phone Jay Howell MD Primary Care Provider [phone] Encounter Details Date Type Department Care Team (Late st Contact Info) Description 12/20/2018 Transcribed Document [facility] [place] [address] [place] [address] ProviderJessie MD [address] [place] [address] Social History Tobacco Use Types Packs/Day Years Used Date Smoking Tobacco: Never Assessed Comments Unknown Sex and Gender Information Value Date Recorded Sex Assigned at Not on file Legal Sex Female 7:30 PM CDT Gender Identity Not on file Sexual Orientation Not on file documented as of this encounter Miscellaneous Notes * Cerner Conversion Note - Historical ProviderMD - 12/20/2018 3:20 PM RN ORTHO DATE OF PROCEDURE: LEFT HEART CATHETERIZATION, GRAFT ANGIOGRAPHY, ILIAC ARTERY ANGIOGRAPHY, PERCUTANEOUS INTERVENTION REPORT INDICATION: Lifestyle limiting exertional angina. REFERRING PHYSICIAN: Dr. Adry Dumas and Dr. Avtar Moeller. PROCEDURE: Standard left heart catheterization. TECHNIQUE: A 5/6-Burundian sheath placed in the right femoral artery. Right iliac artery angiography was performed using a JR4 diagnostic catheter due to difficulty in advancing safety J-wire across the proximal right common iliac artery. Angiography revealed patent iliac artery with a kink proximally. There is no pressure gradient across the kink. The short 6-Burundian sheath was switched out for a 25 cm 6-Burundian Arrow sheath with the sheath tip into the abdominal aorta for angiography and percutaneous intervention. JL4, JR4 diagnostic catheters were used for selective angiography of the tanana vessels. JR4 diagnostic catheter was used for selective angiography of the bypass grafts. A 6-Burundian pigtail catheter was advanced in the left [...] additional 162 mg of aspirin in the laborer airport maintenance. She was given Aggrastat bolus. Patient received intracoronary nitroglycerin to optimize coronary vessel sizing. Wood Pacheco M.D. Dict: 12/20/2018 15:20:17 Trans: 12/20/2018 18:55:03 CC1: Wood Pacheco M.D. CC2: Dr. Adry Dumas CC3: Dr. Avtar Moeller Electronically signed by Gayle Finnegan Conversion Technical Sales Representatives Cerner at 02/04/2023 2:13 PM CDT documented in this encounter Plan of Treatment Not on file documented as of this encounter Visit Diagnoses Not on filedocumented in this encounter Care Teams Station Mechanic Helper Relationship Specialty Start Date End Date Jay Howell MD [address] [place] [phone] PCP - General Emergency Medicine 11/12/23 documented as of this encounter
--- OUTSIDE RECORDS SUMMARY | 2025-07-12 08:52 | XMS_ITS | Encounter Summary ---
Author Organization [employer] ([place], [place], [place], [place]) Address [address] [place] [address] Care Team Providers Care Games Manager Name Role Phone Jay Howell MD Primary Care Provider [phone] Encounter Details Date Type Department Care Team (Late st Contact Info) Description 12/20/2018 Transcribed Document [facility] [place] Family Medicine [address] [place] [address] ProviderJessie MD [address] [place] [address] Social History Tobacco Use Types Packs/Day Years Used Date Smoking Tobacco: Never Assessed Comments Unknown Sex and Gender Information Value Date Recorded Sex Assigned at Not on file Legal Sex Female 7:30 PM CDT Gender Identity Not on file Sexual Orientation Not on file documented as of this encounter Miscellaneous Notes * Cerner Conversion Note - Historical ProviderMD - 12/20/2018 11:57 AM WATERSHED ENGINEER Pre Procedure Adult Entered On: 12/20/2018 12:01 EST Performed On: 12/20/2018 11:57 EST by VANCE BELTRAN RN Height and Weight, Clinical Dosing Height Source : Stated Height Entry Format : [place] Height, Feet : 5 ft(Converted to: 152 cm, 60 Inch) Height, Inches : 3 Inch(Converted to: 0 ft 3 Inch, 7.62 cm) Clinical Height : 160.02 cm Weight Source : Standing scale Weight Entry Format : [place] Clinical Dosing Weight : 71.82 kg Weight, Pounds : 158 lb Body Surface Area (BSA) : 1.75 m2 Body Mass Index : 28 kg/m2 (HI) [place] Body Weight : 52 kg VANCE BELTRAN RN - 12/20/2018 11:57 EST Health Histories Smoking Status : Smoker, current status unknown Smokeless Tobacco Status : Former smokeless tobacco user, quit more than 30 days ago Desires Tobacco Cessation Medication : No Reason for No Tobacco Cessation Medication : Refuses FDA approved medications VANCE BELTRAN RN - 12/20/2018 11:57 EST Social History (As Of: 12/20/2018 12:01:50 EST) Tobacco: Smoking Status Former smoker. Comments: [...] by BIPIN HOFF RN) Infectious Disease History Infectious Disease History : Chicken pox/Shingles, Measles, Mumps Isolation Needed : Standard Fever/Chills Last 48 Hours : No Travel To Regions with Travel Advisories : No Travel Outside [place] Within Last 30 Days : No Contact With Traveler to Advisory Region : No Tuberculosis Symptoms : None VANCE BELTRAN RN - 12/20/2018 11:57 EST Anesthesia/Transfusion History Family History of Anesthesia Reaction : Prior transfusion reaction Type of Transfusion Reaction : Hemolytic reaction Transfusion History : Prior anesthesia without reaction Family History of Anesthesia Reaction : None VANCE BELTRAN RN - 12/20/2018 11:57 EST Functional Assessment Living Situation : Home Patient Lives With : Spouse Current Home Treatments : Blood glucose monitoring, CPAP AVNCE BELTRAN RN - 12/20/2018 11:57 EST Psychosocial History Chronic/Terminal Illness w/Freq Visits : No Currently in Unsafe Situation : No Tried to Harm Yourself in the Past? : No Thoughts of Harming/Killing Yourself : No VANCE BELTRAN RN - 12/20/2018 11:57 EST Advance Directive Patient has Advance Directive *Q : No, patient requests assist formulating Advance Directive VANCE BELTRAN RN - 12/20/2018 11:57 EST General Info Preferred Name : ilsa Support Person/Patient Rubber Liner : Deanna Support Person/Pt Rep Name : Willard Contact Password : Marvin Support Person/Pt Rep Contact Information : [id number] Want Family/Rep/Phys Notified of Admit : No Emergency Contact #1 : na Emergency Contact #1 Phone Number : [place] Emergency Contact #1 Relationship : na Emergency Contact #2 : na Emergency Contact #2 Phone Number : [place] Emergency Contact #2 Relationship : na Primary Language : Iraqi Preferred Communication Mode : Verbal Communication Barrier : None VANCE BELTRAN RN - 12/20/2018 11:57 EST Sleep Apnea Risk Assmt Hx of Obstructive Sleep Apnea Diagnosis : Yes BiPAP/CPAP Ordered for Home Use : Yes BiPAP/CPAP Used at Home : Yes BiPAP/CPAP Home Settings : 9 Home BiPAP/CPAP Device With Patient : No VANCE BELTARN RN - 12/20/2018 11:57 EST Srinivasan Scale Srinivasan Sensory Perception : No impairment Srinivasan Moisture : Rarely moist Srinivasan Activity : Walks frequently Srinivasan Mobility : No limitation Srinivasan Nutrition : Excellent Srinivasan Friction and Shear : No apparent problem Srinivasan Score : 23 VANCE BELTRAN RN - 12/20/2018 11:57 EST Fall Risk Scales ABCs Fall Injury Risk Identification : None THOMAS Hx Falls Immediate/Within 3 Months : Yes Thomas Secondary Diagnosis : No THOMAS Use of Ambulatory Aid : None THOMAS IV Therapy or IV Access : No Thomas Gait/Transferring : Normal, bedrest, immobile Thomas Mental Status : Oriented to own ability Thomas Fall Risk Score : 25 THOMAS Fall Scale Risk Level : 0-24 Low Risk Jadwin Fall Interventions : Bed in low position, Call device within reach, Non-slip footwear, Wheels locked VANCE BELTRAN RN - 12/20/2018 11:57 EST Valuables and Belongings Valuables and Belongings : Clothing Clothing : Common streetwear Clothing Disposition : Bedside VANCE BELTRAN RN - 12/20/2018 11:57 EST Electronically signed by Sivan [facility] Conversion Sports Fitness And Wellness Director Cerner at 02/04/2023 2:07 PM CDT documented in this encounter Plan of Treatment Not on file documented as of this encounter Visit Diagnoses Not on filedocumented in this encounter Care Teams Games Manager Relationship Specialty Start Date End Date Jay Howell MD [address] [place] [phone] PCP - General Emergency Medicine 11/12/23 documented as of this encounter
--- OUTSIDE RECORDS SUMMARY | 2025-07-12 08:52 | XMS_ITS | Encounter Summary ---
Author Organization [employer] ([place], [place], [place], [place]) Address [address] [place] [address] Care Team Providers Care Systems Analysis Manager Name Role Phone Jay Howell MD Primary Care Provider [phone] Encounter Details Date Type Department Care Team (Late st Contact Info) Description 09/04/2020 Transcribed Document [facility] [place] [address] [place] [address] ProviderJessie MD [address] [place] [address] Social History Tobacco Use Types Packs/Day Years Used Date Smoking Tobacco: Never Assessed Comments Unknown Sex and Gender Information Value Date Recorded Sex Assigned at Not on file Legal Sex Female 7:30 PM CDT Gender Identity Not on file Sexual Orientation Not on file documented as of this encounter Miscellaneous Notes * Cerner Conversion Note - Jessie ProviderMD - 09/04/2020 4:04 AM DIRECTOR OF BUSINESS SERVICES ED Triage Entered On: 09/04/2020 4:13 EST Performed On: 09/04/2020 1:51 EST by Chinyere Leonard RN ED Triage Across the Room Chief Complaint : see downtime triage form Triage Date/Time : 09/04/2020 1:51 EST Chinyere Leonard RN - 09/04/2020 4:12 EST DCP GENERIC CODE Tracking Acuity : 4 - Non - Urgent Tracking Group : [facility] ED Chinyere Leonard RN - 09/04/2020 4:12 EST Mode of Arrival : Ambulatory Transported to ED by : Private vehicle To Room Via : Ambulate Accompanied By : Spouse Height & Weight : Document ED Allergies : Document ED Reason for Visit : Document Tetanus Immunization : Less than 5 years Virtualization Engineer Needed : No Chinyere Leonard RN - 09/04/2020 4:12 EST Infectious Disease History Has the patient [...] pox/Shingles, Measles, Mumps Tuberculosis Symptoms : None Chinyere Leonard RN - 09/04/2020 4:12 EST Allergy (As Of: 09/04/2020 04:13:26 EST) Allergies (Active) Macrodantin Estimated Onset Date: Unspecified ; Created By: KENYON CHAMBERS RN; Reaction Status: Active ; Category: Drug ; Substance: Macrodantin ; Type: Allergy ; Updated By: KENYON CHAMBERS RN; Reviewed Date: 09/04/2020 4:13 EST morphine Estimated Onset Date: Unspecified ; Reactions: rash, rash ; Created By: CONTRIBUTOR_SYSTEMAUSTIN; Reaction Status: Active ; Category: Drug ; Substance: morphine ; Type: Allergy ; Updated By: AUSTIN FRANKS; Reviewed Date: 09/04/2020 4:13 EST nitrofurantoin Estimated Onset Date: Unspecified ; Reactions: blisters, blisters ; Created By: CONTRIBUTOR_AUSTIN DELGADO; Reaction Status: Active ; Category: Drug ; Substance: nitrofurantoin ; Type: Allergy ; Updated By: CONTRIBUTORAUSTIN WILSON; Reviewed Date: 09/04/2020 4:13 EST Diagnosis Control ED (As Of: 09/04/2020 04:13:26 EST) Problems(Active) Apnea, sleep (SNOMED CT :585550746 ) Name of Problem: Apnea, sleep ; Recorder: JUAN LUIS GIL RN; Confirmation: Confirmed ; Classification: Medical ; Code: 294820931 ; Contributor System: [employer] ; Last Updated: 11/12/2014 10:12 EST ; Life Cycle Date: 11/12/2014 ; Life Cycle Status: Active ; Vocabulary: SNOMED CT Arthritis (SNOMED CT :2951323 ) Name of Problem: Arthritis ; Recorder: KENYON CHAMBERS RN; Confirmation: Confirmed ; Classification: Medical ; Code: 5801576 ; Contributor System: Power[employer] ; Last Updated: 04/10/2016 8:04 EDT ; Life Cycle Date: 08/13/2013 ; Life Cycle Status: Active ; Vocabulary: SNOMED CT Atrial fibrillation with RVR (SNOMED CT :9307131027 ) Name of Problem: Atrial fibrillation with RVR ; Recorder: SANG RICO APRN; Confirmation: Confirmed ; Classification: Medical ; Code: 2885802491 ; Contributor System: PowerChart ; Last Updated: 04/10/2016 8:05 EDT ; Life Cycle Date: 04/10/2016 ; Life Cycle Status: Active ; Responsible Provider: SANG RICO APRN; Vocabulary: SNOMED CT Blood clot (SNOMED CT :378055326 ) Name of Problem: Blood clot ; Recorder: KENYON CHAMBERS RN; Confirmation: Confirmed ; Classification: Patient Stated ; Code: 718109003 ; Contributor System: PowerChart ; Last Updated: [...] Vocabulary: Patient Care Chest pain (SNOMED CT :78668817 ) Name of Problem: Chest pain ; Recorder: SANG RICO APRN; Confirmation: Complaint of ; Classification: Medical ; Code: 20640632 ; Contributor System: PowerChart ; Last Updated: 04/10/2016 8:05 EDT ; Life Cycle Status: Active ; Responsible Provider: SANG RICO APRN; Vocabulary: SNOMED CT Chronic anticoagulation (SNOMED CT :489880487 ) Name of Problem: Chronic anticoagulation ; Recorder: SANG RICO APRN; Confirmation: Confirmed ; Classification: Medical ; Code: 084125264 ; Contributor System: PowerChart ; Last Updated: 04/10/2016 8:05 EDT ; Life Cycle Date: 04/10/2016 ; Life Cycle Status: Active ; Responsible Provider: SANG RICO APRN; Vocabulary: SNOMED CT Clotting disorder (SNOMED CT :850960438 ) Name of Problem: Clotting disorder ; Recorder: KENYON CHAMBERS RN; Confirmation: Confirmed ; Classification: Patient Stated ; Code: 430870362 ; Contributor System: PowerChart ; Last Updated: 03/28/2014 19:29 EDT ; Life Cycle Date: 08/13/2013 ; Life Cycle Status: Active ; Vocabulary: SNOMED CT COPD (SNOMED CT :31363474 ) Name of Problem: COPD ; Recorder: KENYON CHAMBERS RN; Confirmation: Confirmed ; Classification: Medical ; Code: 65269698 ; Contributor System: PowerChart ; Last Updated: 04/10/2016 8:03 EDT ; Life Cycle Date: 08/13/2013 ; Life Cycle Status: Active ; Vocabulary: SNOMED CT Coronary artery disease (SNOMED CT :7854610951 ) Name of Problem: Coronary artery disease ; Recorder: KENYON CHAMBERS RN; Confirmation: Confirmed ; Classification: Medical ; Code: 3606374979 ; Contributor System: PowerChart ; Last Updated: 04/10/2016 8:03 EDT ; Life Cycle Date: 08/13/2013 ; Life Cycle Status: Active ; Vocabulary: SNOMED CT Diabetes mellitus (SNOMED CT :315971252 ) Name of Problem: Diabetes mellitus ; Recorder: KENYON CHAMBERS RN; Confirmation: Confirmed ; Classification: Medical ; Code: 503977206 ; Contributor System: PowerChart ; Last Updated: 04/10/2016 8:04 EDT ; Life Cycle Date: 08/13/2013 ; Life Cycle Status: Active ; Vocabulary: SNOMED CT Emphysema (SNOMED CT :381256944 ) Name of Problem: Emphysema ; Recorder: JUAN LUIS GIL RN; Confirmation: Confirmed ; Classification: Medical ; Code: 721725472 ; Contributor System: PowerChart ; Last Updated: 11/12/2014 10:11 EST ; Life Cycle Date: 11/12/2014 ; Life Cycle Status: Active ; Vocabulary: SNOMED CT GERD - Gastro-esophageal reflux disease (SNOMED CT :7219974111 ) Name of Problem: GERD - Gastro-esophageal reflux disease ; Recorder: KENYON CHAMBERS RN; Confirmation: Confirmed ; Classification: Medical ; Code: 2353897216 ; Contributor System: PowerChart ; Last Updated: [...] Patient Care High blood pressure (SNOMED CT :23460545 ) Name of Problem: High blood pressure ; Recorder: KENYON CHAMBERS RN; Confirmation: Confirmed ; Classification: Medical ; Code: 31475516 ; Contributor System: PowerChart ; Last Updated: 04/10/2016 8:03 EDT ; Life Cycle Date: 08/13/2013 ; Life Cycle Status: Active ; Vocabulary: SNOMED CT History of obstructive sleep apnea (IMO :08888535 ) Name of Problem: History of obstructive sleep apnea ; Recorder: SYSTEM, SYSTEM; Confirmation: Confirmed ; Classification: Medical ; Code: 69122283 ; Last Updated: 08/25/2020 18:21 EST ; Life Cycle Date: 08/25/2020 ; Life Cycle Status: Active ; Vocabulary: IMO Hx of pulmonary embolus (SNOMED CT :406170847 ) Name of Problem: Hx of pulmonary embolus ; Recorder: SANG RICO APRN; Confirmation: Confirmed ; Classification: Medical ; Code: 660162663 ; Contributor System: PowerChart ; Last Updated: 04/10/2016 8:05 EDT ; Life Cycle Date: 04/10/2016 ; Life Cycle Status: Active ; Responsible Provider: SANG RICO APRN; Vocabulary: SNOMED CT Hyperlipidemia (SNOMED CT :77698429 ) Name of Problem: Hyperlipidemia ; Recorder: KENYON CHAMBERS RN; Confirmation: Confirmed ; Classification: Medical ; Code: 58835623 ; Contributor System: PowerChart ; Last Updated: 04/10/2016 8:03 EDT ; Life Cycle Date: 08/13/2013 ; Life Cycle Status: Active ; Vocabulary: SNOMED CT Multiple renal cysts (SNOMED CT :775851396 ) Name of Problem: Multiple renal cysts ; Recorder: KENYON CHAMBERS RN; Confirmation: Confirmed ; Classification: Medical ; Code: 492221945 ; Contributor System: [employer] ; Last Updated: 04/10/2016 8:04 EDT ; Life Cycle Date: 08/13/2013 ; Life Cycle Status: Active ; Vocabulary: SNOMED CT Stented coronary artery (SNOMED CT :0864148055 ) Name of Problem: Stented coronary artery ; Recorder: KENYON CHAMBERS RN; Confirmation: Confirmed ; Classification: Medical ; Code: 8858887156 ; Contributor System: [employer] ; Last Updated: 04/10/2016 8:03 EDT ; Life Cycle Date: 08/13/2013 ; Life Cycle Status: Active ; Vocabulary: SNOMED CT Diagnoses(Active) Wound drain evaluation Date: 09/04/2020 ; Diagnosis Type: Reason For Visit ; Confirmation: Complaint of ; Clinical Dx: Wound drain evaluation ; Classification: Medical ; Clinical Service: Non-Specified ; Code: PNED ; Probability: 0 ; Diagnosis Code: [id number] ED Height and Weight Height Source : Stated Height Entry Format : [place] Height, Feet : 5 ft(Converted to: 152 cm, 60 Inch) Height, Inches : 4 Inch(Converted to: 0 ft 4 Inch, 10.16 cm) Clinical Height : 162.56 cm Weight Source, ED : Critical estimated dosing weight Weight Entry Format : [place] Weight, Pounds : 152 lb Clinical Dosing Weight : 69.09 kg Body Surface Area (BSA) : 1.74 m2 Body Mass Index : 26.1 kg/m2 (HI) [place] Body Weight (IBW) : 54.3 kg Chinyere Leonard RN - 09/04/2020 4:12 EST Electronically signed by Gayle Finnegan Conversion Deaf And Hard Of Hearing Teacher Cerner at 02/04/2023 1:57 PM CDT documented in this encounter Plan of Treatment Not on file documented as of this encounter Visit Diagnoses Not on filedocumented in this encounter Care Teams Systems Analysis Manager Relationship Specialty Start Date End Date Jay Howell MD [address] [place] [phone] PCP - General Emergency Medicine 11/12/23 documented as of this encounter
--- OUTSIDE RECORDS SUMMARY | 2025-07-12 08:52 | XMS_ITS | Encounter Summary ---
Author Organization [employer] ([place], [place], [place], [place]) Address [address] [place] [address] Care Team Providers Care Lawnmower Repair Mechanic Name Role Phone Jay Howell MD Primary Care Provider [phone] Encounter Details Date Type Department Care Team (Late st Contact Info) Description 12/12/2018 Transcribed Document [facility] [place] [address] [place] [address] ProviderJessie MD [address] [place], [place] [id number] Social History Tobacco Use Types Packs/Day Years Used Date Smoking Tobacco: Never Assessed Comments Unknown Sex and Gender Information Value Date Recorded Sex Assigned at Not on file Legal Sex Female 7:30 PM CDT Gender Identity Not on file Sexual Orientation Not on file documented as of this encounter Miscellaneous Notes * Cerner Conversion Note - Historical ProviderMD - 12/12/2018 10:20 PM CURRICULUM DIRECTOR Electronically signed by [facility], [facility] Conversion Field Associate Cerner at 02/04/2023 1:59 PM CDT documented in this encounter Plan of Treatment Not on file documented as of this encounter Visit Diagnoses Not on filedocumented in this encounter Care Teams Lawnmower Repair Mechanic Relationship Specialty Start Date End Date Jay Howell MD [address] [place] [phone] PCP - General Emergency Medicine 11/12/23 documented as of this encounter
--- OUTSIDE RECORDS SUMMARY | 2025-07-12 08:52 | XMS_ITS | Encounter Summary ---
Author Organization [employer] ([place], [place], [place], [place]) Address [address] [place] [address] Care Team Providers Care Associate Merchant Name Role Phone Jay Howell MD Primary Care Provider [phone] Encounter Details Date Type Department Care Team (Late st Contact Info) Description 08/29/2020 Transcribed Document [facility] [place] Family Medicine [address] [place] [address] ProviderJessie MD [address] [place] [address] Social History Tobacco Use Types Packs/Day Years Used Date Smoking Tobacco: Never Assessed Comments Unknown Sex and Gender Information Value Date Recorded Sex Assigned at Not on file Legal Sex Female 7:30 PM CDT Gender Identity Not on file Sexual Orientation Not on file documented as of this encounter Miscellaneous Notes * Cerner Conversion Note - Jessie ProviderMD - 08/29/2020 2:50 PM TASSEL MAKER WOCN Inpatient Documentation Entered On: 08/29/2020 14:52 EST Performed On: 08/29/2020 14:50 EST by HOLDEN HESS RN WOCN Admission Date : Admit Date 08/25/2020 05:[address] : Diagnosis (6) Medical screening exam General medical Contusion of left lower leg, initial encounter Cellulitis of unspecified part of limb Cutaneous abscess, unspecified Cutaneous abscess, unspecified Reason for WOCN Visit : Assessment, ongoing, Dressing change Admitting Diagnosis ST : Reason for Admission left leg hematoma, cellulitis WOCN Assessment Summary : Able to easily change left lower leg s/p debrided hematoma wound using one piece of black foam inside granulating wound. Periwound protected using barrier spray and drape. Secure seal obtained at 120mmhg. Pt's at bedside and wanted to see. Home VAC system at bedside ready for discharge. HOLDEN HESS RN - 08/29/2020 14:50 EST Wound & Pressure Ulcer WOCN Wound Pressure Ulcer Documentation : [id number] Abnormality: Leg Left Lower, Anterior on 08/29/2020 14:48 by HOLDEN HESS RN I/W/A Present on Admission to Hospital: No I/W/A Type: Other: DEBRIDED HEMATOMA I/W/A Dressing Status: Clean, Dry, Intact I/W/A Dressing Activity: Assessed, Dressing changed I/W/A Wound Bed Description: Full-thickness, Granulating I/W/A Bed Color(s): Brown, Red I/W/A Bed Color Brown Percentage: 5 I/W/A Bed Color Red Percentage: 95 I/W/A Wound Edge: Attached I/W/A Drainage Amount: None I/W/A Photographed: Yes I/W/A Cleansing/Irrigation: Sterile saline I/W/A Dressing Type/Treatment: NPWT Negative Pressure Wound Therapy Activity: Assessed, Dressing changed NPWT Device Used: Renasys Type of Foam/Gauze Removed: Black Foam Number of Black Foam Gauze Removed: 2 Type of Foam/Gauze Applied: Black Foam Number of Black Foam Gauze Applied: 1 Number of TRAC Pads Applied: 1 NPWT Pressure: Continuous NPWT Pressure Settin NPWT Canister Changed: No I/W/A Incision/Wound Healing: Granulate, Improving WOCN Ostomy Documentation : No ostomy assessments reported. HOLDEN HESS RN - 08/29/2020 14:50 EST documented in this encounter Plan of Treatment Not on file documented as of this encounter Visit Diagnoses Not on filedocumented in this encounter Care Teams Associate Merchant Relationship Specialty Start Date End Date Jay Howell MD [address] [place] [phone] PCP - General Emergency Medicine 11/12/23 documented as of this encounter
--- OUTSIDE RECORDS SUMMARY | 2025-07-12 08:52 | XMS_ITS | Encounter Summary ---
Author Organization [employer] ([place], [place], [place], [place]) Address [address] [place] [address] Care Team Providers Care Press Tender Short Goods Name Role Phone Jay Howell MD Primary Care Provider [phone] Encounter Details Date Type Department Care Team (Late st Contact Info) Description 12/21/2018 Transcribed Document [facility] Family [facility] [place] [address] ProviderJessie MD [address] [place] [id number] Social History Tobacco Use Types Packs/Day Years Used Date Smoking Tobacco: Never Assessed Comments Unknown Sex and Gender Information Value Date Recorded Sex Assigned at Not on file Legal Sex Female 7:30 PM CDT Gender Identity Not on file Sexual Orientation Not on file documented as of this encounter Miscellaneous Notes * Cerner Conversion Note - Jessie Yuen MD - 12/21/2018 11:48 AM SPECIAL OFFICER [address] , [place], [place] [id number] Patient Copy Patient Information: Name: SKYLER MONTOYA Current Date: 12/21/2018 11:48:11 : 1940 Patient Address: [address] [place] [id number] Patient Attending Physician: FREDY YAÑEZ MD-CAR Primary Care Provider: TARA CHEN (REF), -MED Primary Care Provider Discharge Diagnosis: CAD (coronary artery disease); DM (diabetes mellitus); Exertional angina; HLD (hyperlipidemia); HTN (hypertension); Hx of CABG; DANTE (obstructive sleep apnea); Paroxysmal A-fib Weight on Admission: 158 lb, 0 oz Comment: Follow-up Instructions: With: Address: When: [facility] [address], [place] [address] Business (1) In 1 month 01/21/2019 With: Address: When: [facility] [address], [address] [place], [place] [id number] Business (1) Within 2 to 5 weeks [...] What foods can I eat? GrainsBreads, including Yakut, white, jie, wheat, raisin, rye, oatmeal, and Welsh. Tortillas that are neither fried nor made with lard or trans fat. Low-fat rolls, including hotdog and hamburger buns and Cuban muffins. Biscuits. Muffins. Waffles. Pancakes. Light popcorn. [...] cottage cheese. Whole-milk cheeses, including blue (fredo), Bracken Armand, Brie, Nate, Zambian, Havarti, Djiboutian, cheddar, Camembert, and [place]. Whole or 2% milk that is liquid, [...] that has suet, meat fat, or shortening. [place] butter, hydrogenated oils, palm oil, coconut oil, [...] can cause a heart attack (myocardial infarction, SC). CAD is a leading cause of for [...] 12/25/2012 Document Revised: 03/10/2017 Document Reviewed: 02/04/2015 [employer] Interactive Patient Education ? 2017 [employer] Groin Site Care Refer to this [...] Document Reviewed: 11/05/2011 ExitCare? Patient Information ?2013 [employer]. Angiogram An angiogram, also called angiography, is [...] including vitamins, herbs, eye drops, creams, and syua-txf-bcjgwrt medicines. ??? Any problems you or family [...] 03/06/2014 Elsevier Interactive Patient Education ? 2017 [employer] Medication Leaflets: valsartan (elin LILY foster) [...] valsartan; ?? if you are on a qzd-xvmp-nkfj; ?? if you are dehydrated; or ?? [...] may report side effects to FDA at 8-146-ETQ-9358. What other drugs will affect valsartan? Tell [...] may interact with valsartan, including prescription and neua-jyc-qdtbeyn medicines, vitamins, and herbal products. Not all [...] to ensure that the information provided by [employer]. ('[employer]') is accurate, up-to-date, and complete, but no guarantee is made to that effect. Drug information contained herein may be time sensitive. [employer] information has been compiled for use by healthcare practitioners and consumers in the [place] and therefore [employer] does not warrant that uses outside of the [place] are appropriate, unless specifically indicated otherwise. [employer] drug information does not endorse drugs, diagnose patients or recommend therapy. [employer] drug information is an informational resource designed [...] effective or appropriate for any given patient. [facility] does not assume any responsibility for any aspect of healthcare administered with the aid of information [facility] provides. The information contained herein is not intended to cover all possible uses, directions, precautions, warnings, drug interactions, allergic reactions, or adverse effects. If you have questions about the drugs you are taking, check with your doctor, nurse or pharmacist. Copyright 3504-0883 [facility] [employer]. Version: 16.05. Revision Date: 09/08/2016. hydralazine (bob [...] may report side effects to FDA at 7-707-RTG-0745. What other drugs will affect hydralazine? Tell your doctor about all your current medicines and any you start or stop using, especially: ? diazoxide (an injectable blood pressure medication); or ?? an MAO inhibitor--isocarboxazid, linezolid, methylene blue injection, phenelzine, rasagiline, selegiline, tranylcypromine, and others. This list is not complete. Other drugs may interact with hydralazine, including prescription and hakk-bsv-dzassbl medicines, vitamins, and herbal products. Not all [...] to ensure that the information provided by [employer]. [employer]') is accurate, up-to-date, and complete, but no guarantee is made to that effect. Drug information contained herein may be time sensitive. [employer] information has been compiled for use by healthcare practitioners and consumers in the [place] and therefore [employer] does not warrant that uses outside of the [place] are appropriate, unless specifically indicated otherwise. [employer] drug information does not endorse drugs, diagnose patients or recommend therapy. [employer] drug information is an informational resource designed [...] effective or appropriate for any given patient. [employer] does not assume any responsibility for any aspect of healthcare administered with the aid of information [employer] provides. The information contained herein is not intended to cover all possible uses, directions, precautions, warnings, drug interactions, allergic reactions, or adverse effects. If you have questions about the drugs you are taking, check with your doctor, nurse or pharmacist. Copyright 4568-4803 [employer]. Version: 5.01. Revision Date: 10/26/2017. amlodipine (am [...] may report side effects to FDA at 6-788-UME-7808. What other drugs will affect amlodipine? Tell your doctor about all your current medicines and any you start or stop using, especially: ? nitroglycerin; ?? simvastatin (Zocor, Simcor, Vytorin); or ?? any other heart or blood pressure medications. This list is not complete. Other drugs may interact with amlodipine, including prescription and tlzv-twn-jnmtsde medicines, vitamins, and herbal products. Not all [...] to ensure that the information provided by [employer]. [employer]') is accurate, up-to-date, and complete, but no guarantee is made to that effect. Drug information contained herein may be time sensitive. [employer] information has been compiled for use by healthcare practitioners and consumers in the [place] and therefore [employer] does not warrant that uses outside of the [place] are appropriate, unless specifically indicated otherwise. [employer] drug information does not endorse drugs, diagnose patients or recommend therapy. [employer] drug information is an informational resource designed [...] effective or appropriate for any given patient. [employer] does not assume any responsibility for any aspect of healthcare administered with the aid of information [employer] provides. The information contained herein is not intended to cover all possible uses, directions, precautions, warnings, drug interactions, allergic reactions, or adverse effects. If you have questions about the drugs you are taking, check with your doctor, nurse or pharmacist. Copyright 8574-8317 [employer]. Version: 14.. Revision Date: 01/24/2017. clopidogrel (kloe [...] may report side effects to FDA at 7-835-APR-0246. What other drugs will affect clopidogrel? Certain other medicines may increase your risk of bleeding, including aspirin. Avoid taking aspirin unless your doctor tells you to. Tell your doctor about all your other medicines, especially: ? any other medicines to treat or prevent blood clots; ?? a stomach acid care manager such as omeprazole, Nexium, or Prilosec; ?? an antidepressant; ?? an opioid medication; ?? a blood thinner--warfarin, Coumadin, Jantoven; or ?? NSAIDs (nonsteroidal anti-inflammatory drugs)--ibuprofen (Advil, Motrin), naproxen (Aleve), celecoxib, diclofenac, indomethacin, meloxicam, and others. This list is not complete. Other drugs may affect clopidogrel, including prescription and pvtd-lej-ijvkixd medicines, vitamins, and herbal products. Not all [...] to ensure that the information provided by [employer]. [employer]') is accurate, up-to-date, and complete, but no guarantee is made to that effect. Drug information contained herein may be time sensitive. [employer] information has been compiled for use by healthcare practitioners and consumers in the [place] and therefore [employer] does not warrant that uses outside of the [place] are appropriate, unless specifically indicated otherwise. [employer] drug information does not endorse drugs, diagnose patients or recommend therapy. [employer] drug information is an informational resource designed [...] effective or appropriate for any given patient. [employer] does not assume any responsibility for any aspect of healthcare administered with the aid of information [employer] provides. The information contained herein is not intended to cover all possible uses, directions, precautions, warnings, drug interactions, allergic reactions, or adverse effects. If you have questions about the drugs you are taking, check with your doctor, nurse or pharmacist. Copyright 3341-8797 [employer]. Version: 15.01. Revision Date: 08/07/2018. ranolazine (ra [...] following drugs: ? clarithromycin; ?? nefazodone; ?? Bruni's wort; ?? antifungal medicine--itraconazole, ketoconazole; ?? HIV [...] may report side effects to FDA at 2-798-EAI-3823. What other drugs will affect ranolazine? Many [...] interact with ranolazine. This includes prescription and ydsx-tgs-dzcohpn medicines, vitamins, and herbal products. Give a [...] to ensure that the information provided by [employer]. ('[employer]') is accurate, up-to-date, and complete, but no guarantee is made to that effect. Drug information contained herein may be time sensitive. [employer] information has been compiled for use by healthcare practitioners and consumers in the [place] and therefore [employer] does not warrant that uses outside of the [place] are appropriate, unless specifically indicated otherwise. [employer] drug information does not endorse drugs, diagnose patients or recommend therapy. [employer] drug information is an informational resource designed [...] effective or appropriate for any given patient. [employer] does not assume any responsibility for any aspect of healthcare administered with the aid of information [employer] provides. The information contained herein is not intended to cover all possible uses, directions, precautions, warnings, drug interactions, allergic reactions, or adverse effects. If you have questions about the drugs you are taking, check with your doctor, nurse or pharmacist. Copyright 4561-6442 [employer]. Version: 11.. Revision Date: 12/04/2015. CIGARETTE SMOKING: The facts are clear, cigarette smoking will shorten your life. Smoking can cause many illnesses along the way. As a healthcare provider, we recommend that you stop smoking. Assistance with quitting is available by contacting 4-626-XGIT-NOW. This is a free resource providing counseling, [...] Be sure to sign up for the [employer] patient portal, which gives you 09/05 access to your medical information ??? including these discharge instructions ??? using your computer, smartphone, or tablet. Just go to [employer] to get started. Questions? Call . [facility] would like to thank you for allowing us to assist you with your healthcare needs. MICHELE Skaggs JUDY D, (or retail account representative) have received the above patient education materials/instructions and have verbalized understanding: Patient Signature _ Date/Time Patient Range Conservationist Signature (if needed) Date/Time Clinician/Hospital Range Conservationist Signature (if needed) Date/Time Electronically signed by [facility] Conversion Grinder Set Up Operator Jig Cerner at 02/04/2023 1:58 PM CDT documented in this encounter Plan of Treatment Not on file documented as of this encounter Visit Diagnoses Not on filedocumented in this encounter Care Teams Press Tender Short Goods Relationship Specialty Start Date End Date Jay Howell MD [address] [place] [phone] PCP - General Emergency Medicine 11/12/23 documented as of this encounter
--- OUTSIDE RECORDS SUMMARY | 2025-07-12 08:52 | XMS_ITS | Encounter Summary ---
Author Organization [employer] ([place], [place], [place], [place]) Address [address] [place] [address] Care Team Providers Care Rug Cleaner Hand Name Role Phone Jay Howell MD Primary Care Provider [phone] Encounter Details Date Type Department Care Team (Late st Contact Info) Description 09/01/[address] 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 FINDINGS: A four view exam demonstrates no acute fracture or dislocation. There are significant vascular calcifications. There is soft tissue swelling anteriorly overlying the distal tibia that may represent a hematoma. There is no soft tissue gas or radiopaque foreign body. IMPRESSION: Soft tissue swelling anteriorly overlying the distal tibia, may represent hematoma. No acute osseous abnormality. LEFT ANKLE SERIES. HISTORY: Left ankle pain, fall. FINDINGS: Three views show no evidence of an acute, displaced fracture or dislocation of the visualized bony architecture. The ankle mortise is maintained. There is soft tissue swelling. There is osteopenia. There are plantar and Achilles insertional spurs. There are vascular calcifications. IMPRESSION: Soft tissue solid without acute osseous abnormality. [1] Summary BILATERAL: Monophasic waveforms of the DRUM SEALER, & DPA . Unable to compress DRUM SEALER and DPA (>220 mmHg). Toe brachial index: Non-compressible [2] RIGHT: Abnormal arterial runoff disease present starting at the level of the DRUM SEALER. Non significant, non-flow restricting plaque noted at common femoral artery. 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 There is a significant (50-75%) stenosis of the distal DRUM SEALER. Non significant, non-flow restricting plaque noted at DPA. DRUM SEALER & DPA non compressible for FERNIE. TBI: Non compressible. LEFT: Abnormal arterial runoff disease present starting at the level of the DRUM SEALER. Non significant, non-flow restricting plaque noted at common femoral artery. There is a severe (>75%) stenosis of the distal DRUM SEALER. DRUM SEALER & DPA non compressible for FERNIE. TBI: Non compressible. [3] REPORT MRI LUMBAR SPINE WITHOUT CONTRAST HISTORY: Lumbar back pain. PROCEDURE: Multiplanar MR imaging of the lumbar spine was performed in multiple MR sequences. FINDINGS: Cord terminates appropriately. The disc signal is diminished throughout the lumbar spine. There are postoperative changes at L4-5. There is disc space narrowing at L5-S1. Lesions at L2 and L3 likely represent hemangiomas. There are multiple nonspecific bilateral renal lesions measuring between 10 and 35 mm. L3-4: There is severe facet hypertrophy and a broad-based disc bulge. There is ligamentum flavum redundancy. There is moderate central canal stenosis. There is moderate bilateral neural foraminal stenosis. L4-5: There is severe facet hypertrophy. The level is fused. There is no central canal stenosis. There is mild bilateral neural foraminal stenosis. L5-S1: There is facet hypertrophy and a broad-based disc bulge. There is no central canal or neural foraminal stenosis. IMPRESSION: Degenerative disc disease as above. Renal lesions as above. Follow up renal protocol CT recommended. [4] Reason For Exam renal lesions;Other (Please Specify) REPORT CT OF THE ABDOMEN HISTORY: Renal lesion seen on recent MR of the lumbar spine. PROCEDURE: Routine axial images were obtained from the lung bases to below the iliac crest before and following IV contrast administration. This study was performed with techniques to keep radiation doses as low as reasonably achievable, (ALARA). Individualized dose reduction techniques using automated exposure control or adjustment of mA and/or kV according to the patient size were employed. COMPARISON: None. FINDINGS: The gallbladder has been removed. There is extensive vascular calcification. There are several bilateral renal cysts. The majority of these are simple cysts. However, there are small nonenhancing hyperdense cysts bilaterally. Most of these cysts are unchanged from a prior examination of 08/14/2013. No solid renal masses identified. The other solid abdominal organs are within normal limits. IMPRESSION: Several bilateral renal cysts, including a few hyperdense cysts. No solid renal mass is identified and no further follow-up is recommended. [5] Reason for Hospitalization Ms. Bautista is an 79-year-old female with known history of coronary artery disease, status post CABG; history of multiple stent placements. The patient presented to [facility] after recent fall with hematoma required [...] wound care follow-up at her local vicinity. [6] Hospital Course Pt admitted and seen by ID who managed abx therapy. She was seen by VS and underwent imaging showing PVD. Dr. Verde took to OR and did debridement and angioplasty on LLE with wound vac placed the following day. She will need HH and abx per ID. Her hematoma improved as did her pain. She has RLE PVD as well and should see Dr. Verde as outpt. Dr. Verde prefers that we continue coumadin and plavix, stop aspirin at discharge. She had issues with uncontrolled HTN, this improved on day of discharge. We increased her hydralazine to 100mg BID for compliance. She complained of Low back pain with LLE radicular sx, hx of multiple back surgeries ( 1979, 1997--Dr. Kelsey). She underwent MRI without acute findings and she will need to be seen by PCP in follow up. ROSSY did eval here without acute recommendations We did have to hold her coumadin due to hematoma and Dr. Verde approved starting coumadin back and heparin bridge until therapeutic. Per Dr. Pérez ok to transition to lovenox bridge and DC with close follow and three times weekly INR checks per PCP while on abx. She was found to have renal cysts and should be followed by PCP as well. PT seen by PT and independent. Eager for discharge. Will need follow up for PT/INR with Dr. Moeller this week. I had spoken to Dr. Moeller regarding her INR. With recent hematoma we recommend INR between 2-3 (should be goal for patient ) and this likely needs every other day INR checks with Dr. Moeller as antibiotics can alter this. We will dc on 1mg/kg lovenox BID and follow up with Dr. Moeller. Discussed w Dr. Ferrer who wants 3 days of antibiotics and she can follow up with him in clinic on Tuesday. Vital Signs T: 36.4 ??C TMIN: 36.4 ??C TMAX: 36.9 ??C HR: 78 RR: 16 BP: 167/63 SpO2: 96% Oxygen Settings (Last) Oxygen Therapy Mode: Room air (08/31/20 17:52:00) Oxygen Flow Rate: 2 Liter/Min (08/26/20 14:45:00) Physical Exam wound vac intact on LLE, improved erythema and contusing on RA, no distress eager for discharge Discharge Disposition Home with Home Care Discharge Follow Up KAELA VERDE - 12:30 PM KAELA VERDE - 12:45 PM KAVITHA HIDALGO - In 2 days 09/03/2020 TARA MOELLER - Within 2 days Discharge Medications (19) Active amoxicillin-clavulanate 875 mg-125 mg oral tablet 1 Tab, Oral, Q12H atorvastatin 80 mg oral tablet 80 mg = 1 Tab, Oral, At Bedtime carvedilol 6.25 mg oral tablet 6.25 mg = 1 Tab, Oral, TID Coumadin 3 mg oral tablet 3 mg = 1 Tab, Oral, Daily dorzolamide 2% ophthalmic solution 1 Drop, Eye Right, BID hydrALAZINE 50 mg oral tablet 100 mg = 2 Tab, Oral, BID lactobacillus acidophilus oral tablet 2 Tab, Oral, Daily losartan 100 mg oral tablet 100 mg = 1 Tab, Oral, Daily Lovenox 60 mg/0.6 mL injectable solution 70 mg, SubCutaneous, Q12H metFORMIN 500 mg oral tablet, extended release 500 mg = 1 Tab, Oral, BID With Meals Multiple Vitamins oral tablet 1 Tab, Oral, Daily [place] 7.5 mg-325 mg oral tablet 1 Tab, PRN, Oral, Q6H Norvasc 10 mg oral tablet 10 mg = 1 Tab, Oral, Daily omeprazole 40 mg oral delayed release capsule 40 mg = 1 Cap, Oral, Daily Plavix 75 mg oral tablet 75 mg = 1 Tab, Oral, Daily Ranexa 500 mg oral tablet, extended release 1,000 mg = 2 Tab, Oral, BID terbinafine 250 mg oral tablet 250 mg = 1 Tab, Oral, Daily Vibramycin 100 mg oral capsule 100 mg = 1 Cap, Oral, BID Xanax 0.5 mg oral tablet 0.5 mg = 1 Tab, PRN, Oral, At Bedtime Code Status Start: 08/25/20 5:51:00 EST, Full Code, Continuous Order Condition on Discharge stable Consulting Physicians KAELA VERDE MD - Necrotic wound MIEDLER, KAVITHA Durbin MD-INF NORM, ERMA HOLLIDAY MD-AMALIA SEVERIANO, PRINCESS ISAAC MD-ANS STEPHANIE STOKES MD - radicular back pain Current Diet Order Diet, Adult - Ordered -- Start: 08/26/20 17:14:00 EST, 60 gm carbs:[id number] george, Isolation: Standard Precautions, Instructions: Diabetic Diet Patient Discharge Summary Orders Discharge Activity: Discharge Activity: No heavy lifting over 10 lbs, Avoid Strenuous Activity Until: for 1 week Pending Labs Ordered PTT Heparin Protocol Specimen Type: Blood, Timed Study collect, 08/29/20 21:45:00 EST, Q6HInt, Lab Collect CBC w/ Auto Diff Specimen Type: Blood, Routine collect, 08/30/20 13:45:00 EST, Daily, For: 3 Day(s), Stop: 09/02/20 4:00:00 EST, Lab Collect CBC w/ Auto Diff Specimen Type: Blood, Routine collect, 09/02/20 13:45:00 EST, MoWeFr, Lab Collect PT/INR Prothrombin Time Specimen Type: Blood, Anticoagulant: Yes warfarin, AM Draw collect, 08/30/20 4:00:00 EST, Daily, Lab Collect Stain Culture AFB and Stain Specimen Type: Surgical Swab, From: Leg Lower L, Routine collect, Collected, 08/26/20 13:56:00 EST, 1-Time, Stop: 08/26/20 13:56:00 EST, Nurse Collect, Print Label By Order Location Culture Fungus Specimen Type: Surgical Swab, From: Leg Lower L, Routine collect, Collected, 08/26/20 13:57:00 EST, 1-Time, Stop: 08/26/20 13:57:00 EST, Nurse Collect, Print Label By Order Location Time Spent on Discharge > [address] Ferrer and Dr. Peña. Ok to DC. [1] CR Ankle Min 3 Vws LT; Shannon Marquez, Logistics Supervisor 08/22/2020 21:21 EST [2] [facility]; ERMA ZHENG MD-AMALIA 08/25/2020 11:29 EST [3] [facility]; ERMA ZHENG MD-AMALIA 08/25/2020 11:40 EST [4] MRI Spine Lumbar WO; Leti Wakefield, MULTI MODALITY TECHNOLOGIST 08/25/2020 15:21 EST [5] CT Abdomen WO W; Gus Lopez, CARBON GRINDER 08/27/2020 18:06 EST [6] Admission History and Physical; BETH DAVALOS MD-INT 08/25/2020 06:23 EST documented in this encounter Plan of Treatment Not on file documented as of this encounter Visit Diagnoses Not on filedocumented in this encounter Care Teams Rug Cleaner Hand Relationship Specialty Start Date End Date Jay Howell MD [address] [place] [phone] PCP - General Emergency Medicine 11/12/23 documented as of this encounter
--- OUTSIDE RECORDS SUMMARY | 2025-07-12 08:52 | XMS_ITS | Encounter Summary ---
Author Organization [employer] ([place], [place], [place], [place]) Address [address] [place] [address] Care Team Providers Care Flexo Operator Name Role Phone Jay Howell MD Primary Care Provider [phone] Encounter Details Date Type Department Care Team (Late st Contact Info) Description 08/31/2020 Transcribed Document [facility] [place] Family Medicine [address] [place] [address] ProviderJessie MD [address] [place] [address] Social History Tobacco Use Types Packs/Day Years Used Date Smoking Tobacco: Never Assessed Comments Unknown Sex and Gender Information Value Date Recorded Sex Assigned at Not on file Legal Sex Female 7:30 PM CDT Gender Identity Not on file Sexual Orientation Not on file documented as of this encounter Miscellaneous Notes * Cerner Conversion Note - Jessie Yuen MD - 08/31/2020 9:43 AM 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 Health Status Allergies: Allergic Reactions (All) Severity Not Documented Macrodantin- No reactions were documented. Morphine- Rash and rash. Nitrofurantoin- Blisters and blisters., Allergies (1) Active Reaction Macrodantin None Documented Current medications: (Selected) Inpatient Medications Ordered Coumadin: 2 mg, Oral, TuThSaSu Coumadin: 3 mg, Oral, 1-Time Coumadin: 3 mg, Oral, MoWeFr DAPTOmycin + Sodium Chloride 0.9% intravenous solution 50 mL: 300 mg, 6 mL, 112 mL/Hr, IV Piggyback, [id number] DuoNeb 0.5 mg-2.5 mg/3 mL inhalation solution: [...] Oral, Daily multivitamin: 1 Tab, Oral, Daily terbinafine 250 mg oral tablet: 250 mg, 1 Tab, Oral, Daily Documented Medications Documented Bactroban 2% topical ointment: 1 Application, Topical, TID, apply to affected area as directed, 15 Gram, 0 Refill(s) Multiple Vitamins oral tablet: 1 Tab, Oral, Daily, 30 Tab, 0 Refill(s) [place] 7.5 mg-325 mg oral tablet: 1 Tab, [...] 1.5 Tab, Oral, MoWeFr, 0 Refill(s), Medications (26) Active Scheduled: (17) amLODIPine 10 mg tab 10 mg 1 Tab, Oral, Daily atorvastatin 40 mg tab 80 mg 2 Tab, Oral, At Bedtime carvedilol 6.25 mg tab 6.25 mg 1 Tab, Oral, BID clopidogrel 75 mg tab 75 mg 1 Tab, Oral, Daily DAPTOmycin + NaCl 0.9% 50 mL 300 mg 6 mL, IV Piggyback, [id number] dorzolamide 2% ophth soln 10 mL 1 [...] tab 1,000 mg 2 Tab, Oral, BID terbinafine 250 mg tab 250 mg 1 Tab, Oral, Daily warfarin 2 mg tab 2 mg 1 Tab, Oral, TuThSaSu warfarin 3 mg tab 3 mg 1 Tab, Oral, MoWeFr warfarin 3 mg tab 3 mg 1 Tab, Oral, 1-Time Continuous: (1) heparin/NaCl 0.45% 25,000 Units + [...] Confirmed Coronary artery disease / SNOMED CT 4299282385 / Confirmed Stented coronary artery / SNOMED CT 4746183250 / Confirmed High blood pressure / SNOMED CT 11260082 / Confirmed Hyperlipidemia / SNOMED CT 47649769 / Confirmed COPD / SNOMED CT 39710679 / Confirmed GERD - Gastro-esophageal reflux disease / SNOMED CT 5083497056 / Confirmed Multiple renal cysts / SNOMED CT 947668773 / Confirmed Arthritis / SNOMED CT 5724567 / Confirmed Diabetes mellitus / SNOMED CT 174194306 / Confirmed Emphysema / SNOMED CT 602489933 / Confirmed Apnea, sleep / SNOMED CT 267086999 / Confirmed Hx of pulmonary embolus / SNOMED CT 878226446 / Confirmed Chronic anticoagulation / SNOMED CT 461616466 / Confirmed Atrial fibrillation with RVR / SNOMED CT 3896034044 / Confirmed Chest pain / SNOMED CT 10247090 / Complaint of History of obstructive sleep apnea / IMO [id number] / Confirmed Resolved: UTI - Urinary tract infection / SNOMED CT 3371237575 Canceled: History of obstructive sleep apnea / IMO [id number], Active Problems (20) Apnea, sleep Arthritis Atrial [...] hrs) Last Charted Minimum Maximum Temp 97.5 (AUG 31 06:07) 97.5 (AUG 31 06:07) 98.3 (AUG 30 21:06) Apical HR 79 (AUG 30 21:03) 79 (AUG 30 21:03) 79 (AUG 30 21:03) Mon HR 77 (AUG 31 06:07) 65 (AUG 30 10:06) 80 (AUG 31 01:38) Resp Rate 16 (AUG 31 06:07) 16 (AUG 30 15:00) 16 (AUG 30 15:) SBP H 154 (AUG 31 06:07) H 143 (AUG 30:) H 176 (AUG 30 10:06) DBP L 54 (AUG 31 06:07) L 44 (AUG 31 01:38) L 54 (AUG 31 06:07) MAP 79 (AUG 31 06:07) 69 (AUG 30:) 81 (AUG 30 10:06) SpO2 95 (AUG 31 06:07) 95 (AUG 30 21:06) 100 (AUG 30 10:06) General: Alert and oriented, No acute distress. [...] review: Labs (Last four charted values) WBC 6.2 (AUG 31) 4.9 (AUG 29) 4.5 (NOV 12) 5.1 (NOV ) HB L 10.8 (AUG 15) L 10.6 (NOV 13) L 10.5 (NOV 12) L 10.3 (NOV 11) HCT L 32.6 (AUG 15) L 32.4 (NOV 13) L 31.7 (NOV 12) L 31.2 (NOV 11) Plt L 158 (AUG 15) L 149 (NOV 13) L 139 (NOV 12) L 148 (NOV 11) Na 138 (NOV 13) 139 (NOV 11) 138 (NOV 10) 136 (NOV 09) K 3.8 (AUG 14) L 3.3 (AUG 13) 4.5 (NOV 11) L 3.4 (NOV [...] 0.90 (NOV 09) Glu R H 108 (AUG 13) H 115 (NOV 11) H 109 (NOV 10) H 120 (NOV 09) Ca 9.1 (AUG 13) 8.8 (NOV 11) 8.4 (NOV 10) 9.1 (AUG 25) Lactic 1.8 (AUG 25) C 2.3 (AUG 25) C 2.1 (AUG 25) PT H 13.7 (AUG 31) H 13.8 (AUG 30) H 15.6 (AUG 29) H 17.8 (AUG 28) INR H 1.3 (AUG 31) H 1.3 (AUG 30) H 1.5 (AUG 29) H 1.7 (AUG 28) AST 29 (AUG 25) ALT 32 (AUG [...] -wound care -ok to resume coumadin per rojas Walters to use heparin gtt. there is a [...] Home in 1-2 days based on INR documented in this encounter Plan of Treatment Not on file documented as of this encounter Visit Diagnoses Not on filedocumented in this encounter Care Teams Flexo Operator Relationship Specialty Start Date End Date Jay Howell MD [address] [place] [phone] PCP - General Emergency Medicine 11/12/23 documented as of this encounter
--- OUTSIDE RECORDS SUMMARY | 2025-07-12 08:52 | XMS_ITS | Encounter Summary ---
Author Organization [employer] ([place], [place], [place], [place]) Address [address] [place] [address] Care Team Providers Care Dry Mop Maker Name Role Phone Jay Howell MD Primary Care Provider [phone] Encounter Details Date Type Department Care Team (Late st Contact Info) Description 12/20/2018 Transcribed Document [facility] [place] Family Medicine [address] [place] [address] ProviderJessie MD [address] [place] [address] Social History Tobacco Use Types Packs/Day Years Used Date Smoking Tobacco: Never Assessed Comments Unknown Sex and Gender Information Value Date Recorded Sex Assigned at Not on file Legal Sex Female 7:30 PM CDT Gender Identity Not on file Sexual Orientation Not on file documented as of this encounter Miscellaneous Notes * Cerner Conversion Note - Historical ProviderMD - 12/20/2018 12:01 PM DINING CAR HOP Care Management Assessment/Plan Entered On: 12/21/2018 9:37 EST Performed On: 12/21/2018 9:36 EST by ANISH BRAN RN Care Management Note Care Management Note : Discharging today Documentation Status Complete : Yes ANISH BRAN RN - 12/21/2018 9:36 EST documented in this encounter Plan of Treatment Not on file documented as of this encounter Visit Diagnoses Not on filedocumented in this encounter Care Teams Dry Mop Maker Relationship Specialty Start Date End Date Jay Howell MD [address] [place] [phone] PCP - General Emergency Medicine 11/12/23 documented as of this encounter
--- OUTSIDE RECORDS SUMMARY | 2025-07-12 08:52 | XMS_ITS | Encounter Summary ---
Author Organization [facility] ([place], [place], [place], [place]) Address [address] [place] [address] Care Team Providers Care [employer] Name Role Phone Jay Howell MD Primary Care Provider [phone] Encounter Details Date Type Department Care Team (Late st Contact Info) Description 12/12/2018 Transcribed Document [facility] [place] Family Medicine [address] [place] [address] ProviderJessie MD [address] [place] [phone] Social History Tobacco Use Types Packs/Day Years Used Date Smoking Tobacco: Never Assessed Comments Unknown Sex and Gender Information Value Date Recorded Sex Assigned at Not on file Legal Sex Female 7:30 PM CDT Gender Identity Not on file Sexual Orientation Not on file documented as of this encounter Miscellaneous Notes * Cerner Conversion Note - Historical ProviderMD - 12/12/2018 9:44 PM NIGHT ASSISTANT Patient: SKYLER MONTOYA Age: 77 years Sex: Female : 1940 Associated Diagnoses: Chest pain Author: ANGIE TEIXEIRA MD Basic Information Time seen: Date & time 12/12/2018 21:44:00. History source: Patient. Arrival mode: Private vehicle. History limitation: None. Additional information: Chief Complaint from Nursing Triage Note : Chief Complaint 12/12/2018 21:18 EST Chief Complaint pt c/o [facility] x 2 hours rad to neck & L arm. reports seen bt card in [place] for same earlier this week, reports she needs a cath . History of Present Illness This is a 77-year-old female with a past medical history significant for hypertension, hyperlipidemia, coronary artery disease status post cardiac stents, CABG who presents to the emergency department for intermittent anterior chest pain that radiates up towards her neck and down her left arm that is burning in nature. She feels like she is wrapped in bubble wrap . This has been going on for about one week. She was seen earlier this week with a nuclear stress test that was abnormal and was advised to follow-up with her fbi field agent. She had labs done this morning, but had no episode of chest pain this evening, so presents here for further evaluation. Currently she is chest pain-free. No diaphoresis, no shortness of breath, vomiting. This does feel like her previous symptoms that ultimately resulted in a CABG. There are no particular exacerbating or alleviating factors. She states upfront that she does not want to stay for labs that she just have been drawn this morning and wants to go home and see her fbi field agent tomorrow. Review of Systems Additional review of systems information: 10 point review of systems reviewed and negative except as stated in history of present illness . Health Status Allergies: Allergic Reactions (Selected) Severity Not Documented Macrodantin- No reactions were documented. Morphine- Rash and rash. Nitrofurantoin- Blisters and blisters.. Medications: (Selected) Prescriptions Prescribed Coreg 3.125 mg oral tablet: 1 Tab, Oral, BID, Hold for HR less than 55, 60 Tab, 1 Refill(s) Ranexa 500 mg oral tablet, extended release: 2 Tab, Oral, BID, 120 Tab, 0 Refill(s) hydrALAZINE 10 mg oral tablet: 1 Tab, Oral, BID, 60 Tab, 0 Refill(s) Documented Medications Documented Combigan ophthalmic solution: 1 Drop, Eye Right, BID, 0 Refill(s) Coumadin: See Instructions, 1.5 mg Oral TUES, THURS,SAT/SUN, 0 Refill(s) Multiple Vitamins oral tablet: 1 Tab, Oral, Daily, 30 Tab Xanax 0.25 mg oral tablet: 1 Tab, Oral, At Bedtime, PRN: Insomnia, 0 Refill(s) Xanax: 0.5 mg, Oral, Daily, PRN: as needed for anxiety, 0 Refill(s) acetaminophen-HYDROcodone 325 mg-5 mg oral tablet: 1 Tab, Oral, BID, PRN: for pain, 15 Tab, 0 Refill(s) aspirin 81 mg oral tablet: 1 Tab, Oral, Daily, 0 Refill(s) atorvastatin 80 mg oral tablet: 1 Tab, Oral, At Bedtime, 0 Refill(s) levETIRAcetam 250 mg oral tablet: 2 Tab, Oral, BID, 120 Tab, 0 Refill(s) losartan 100 mg oral tablet: 1 Tab, Oral, Daily, 30 Tab, 0 Refill(s) metformin 500 mg oral tablet: 1 Tab, Oral, BID, 180 Tab omeprazole 40 mg oral delayed release capsule: 1 Cap, Oral, Daily, 30 Cap, 0 Refill(s) warfarin 1 mg oral tablet: See Instructions, 1MG Tab Oral Daily MON, WED, FRI, 0 Refill(s), per nurse's notes. Immunizations: Per nurse's notes. Past Medical/ Family/ Social History Medical history Reviewed as documented in chart. Surgical history: Reviewed as documented in chart. Family history: Reviewed as documented in chart. Social history: Reviewed as documented in chart. Problem list: Active Problems (20) Apnea, sleep Arthritis Atrial fibrillation with RVR Blood clot Cataract Chest pain Chronic anticoagulation Clotting disorder COPD Coronary artery disease Diabetes mellitus Emphysema GERD - Gastro-esophageal reflux disease Glaucoma High blood pressure Hx of pulmonary embolus Hyperlipidemia Multiple renal cysts Stented coronary artery UTI - Urinary tract infection , per nurse's notes. Physical Examination Vital Signs Vital Signs/Vital Measures 12/12/2018 21:18 EST Temperature Source Oral Temperature Mode Fahrenheit Temperature, Fahrenheit 98.2 Deg F Clinical Temperature, C 36.8 Deg C Peripheral Pulse Rate 65 bpm Respiratory Rate 17 Breaths/Min Blood Pressure Location Arm, right upper Blood Pressure Source Non-Invasive BP Device Systolic Blood Pressure 193 mmHg HI Diastolic Blood Pressure 80 mmHg Oxygen Saturation 96 % Oxygen Therapy Mode Room air . Per nurse's notes. General: Alert, no acute distress. Skin: Warm, dry. Head: Normocephalic. Neck: Supple. Ears, nose, mouth and throat: Oral mucosa moist. Cardiovascular: Regular rate and rhythm, No murmur. Respiratory: Lungs are clear to auscultation, respirations are non-labored, breath sounds are equal. Gastrointestinal: Soft, Nontender, Non distended. Neurological: Normal speech observed, normal coordination observed. Psychiatric: Cooperative. Medical Decision Making Differential Diagnosis: Unstable angina, angina, anxiety, atypical chest pain, pneumonia, costochondritis, pleurisy, chest wall pain. Documents reviewed: Emergency department nurses' notes, prior records. Electrocardiogram: Time 12/12/2018 21:24:00, rate 57, normal sinus rhythm, No ST changes, normal SC & QRS intervals, EP Interp. Results review: Lab results : Lab Results 12/12/2018 21:23 EST Sodium Level 144 mmol/L Potassium Level 4.0 mmol/L Chloride Level 110 mmol/L Carbon Dioxide Level 24 mmol/L Anion Gap 14 Glucose Level 143 mg/dL HI Blood Urea Nitrogen 15 mg/dL CREATININE 0.80 mg/dL eGFR >60 mL/min/1.73m2 eGFR NonAfrican >60 mL/min/1.73m2 Bun/Creatinine 18.8 Calcium Level 9.1 mg/dL Protein Total 7.9 Gram/dL Albumin Level 4.0 Gram/dL Globulin 3.9 Gram/dL A/G Ratio 1.0 LOW Bilirubin Total 0.3 mg/dL Alk Phos 73 Units/Liter AST 23 Units/Liter ALT 30 Units/Liter Troponin I Ultra <0.015 ng/mL WBC 6.1 K/uL RBC 3.90 Million/uL LOW Hgb 12.0 g/dL Hct 36.2 % MCV 92.8 fL MCH 30.8 pg MCHC 33.1 Gram/dL Platelet Count 165 K/uL MPV 9.6 fL RDW 13.3 % Neut % 52.1 % Neut # 3.18 K/uL Lymph % 36.4 % Lymph # 2.22 x10(3)/uL Harlan % 10.7 % HI Harlan # 0.65 K/uL Eos % 0.0 % Eos # 0.00 x10(3)/uL Baso % 0.5 % Baso # 0.03 x10(3)/uL Slide Review No IG# 0.02 x10(3)/uL IG% 0.30 % PT 25.3 Second(s) HI INR 2.4 HI . Chest X-Ray: No acute disease process, interpretation by Emergency Physician. Notes: Patient here with chest pain, concerning for ACS. Troponin negative and no signs of acute ischemia on EKG. Patient wants to leave AGAINST MEDICAL ADVICE. Patient has decided to leave AGAINST MEDICAL ADVICE. The patient is alert and oriented ??4, of sound decision-making capacity with no impaired judgment at this time. Full benefits of further treatment, alternative options and risk of , disability or worsening conditions have been explained to the patient. The patient has expressed understanding, and has been invited to return for further evaluation at any time. Advised follow-up with fbi field agent in the morning and return to the closest ER for any recurrence or worsening of symptoms.. Impression and Plan Diagnosis Chest pain - Discharge, Medical Plan Condition: Stable. Patient was given the following educational materials: Angina Pectoris. Follow up with: TARA CHEN Within 2 to 3 days; Follow-up with your fbi field agent in the morning. Return to the closest emergency department for any acute new concerns or recurrence of symptoms. Within in AM. Counseled: Patient, Family, Regarding diagnosis, Regarding diagnostic results, Regarding treatment plan, Patient indicated understanding of instructions. documented in this encounter Plan of Treatment Not on file documented as of this encounter Visit Diagnoses Not on filedocumented in this encounter Care Teams [employer] Relationship Specialty Start Date End Date Jay Howell MD [address] [place] [phone] PCP - General Emergency Medicine 11/12/23 documented as of this encounter
--- OUTSIDE RECORDS SUMMARY | 2025-07-12 08:52 | XMS_ITS | Encounter Summary ---
Author Organization [employer] ([place], [place], [place], [place]) Address [address] [place] [address] Care Team Providers Care Farm Supervisor Name Role Phone Jay Howell MD Primary Care Provider [phone] Encounter Details Date Type Department Care Team (Late st Contact Info) Description 12/14/2018 Transcribed Document [facility] [place] Family Medicine [address] [place] [address] ProviderJessie MD [address], [place] [id number] Social History Tobacco Use Types Packs/Day Years Used Date Smoking Tobacco: Never Assessed Comments Unknown Sex and Gender Information Value Date Recorded Sex Assigned at Not on file Legal Sex Female 7:30 PM CDT Gender Identity Not on file Sexual Orientation Not on file documented as of this encounter Miscellaneous Notes * Cerner Conversion Note - Historical ProviderMD - 12/14/2018 4:47 PM TABLE G[employer] FLOOR SUPERVISOR CR Chest 2 Vws Ordered: 12/12/2018 Auth (Verified) Reason for Exam: cp 12/13/2018 11:39 12/14/2018 16:47 (FLORENTIN CAMARGO) No further action required Electronically signed by Gayle Finnegan Conversion [employer] Faculty Member [employer]ner at 02/04/2023 2:16 PM CDT documented in this encounter Plan of Treatment Not on file documented as of this encounter Visit Diagnoses Not on filedocumented in this encounter Care Teams Farm Supervisor Relationship Specialty Start Date End Date Jay Howell MD [address] [place] [phone] PCP - General Emergency Medicine 11/12/23 documented as of this encounter
--- OUTSIDE RECORDS SUMMARY | 2025-07-12 08:52 | XMS_ITS | Encounter Summary ---
Author Organization [employer] ([place], [place], [place], [place]) Address [address] [place] [address] Care Team Providers Care Communications Executive Name Role Phone Jay Howell MD Primary Care Provider [phone] Encounter Details Date Type Department Care Team (Late st Contact Info) Description 09/01/2020 Transcribed Document [facility] Family Medicine [address] [place] [address] ProviderJessie MD [address] [place] [address] Social History Tobacco Use Types Packs/Day Years Used Date Smoking Tobacco: Never Assessed Comments Unknown Sex and Gender Information Value Date Recorded Sex Assigned at Not on file Legal Sex Female 7:30 PM CDT Gender Identity Not on file Sexual Orientation Not on file documented as of this encounter Miscellaneous Notes * Cerner Conversion Note - Jessie Yuen MD - 09/01/2020 2:19 PM [facility] Patient Education Materials Follows: Negative Pressure Wound Therapy Home Guide Negative pressure wound therapy (NPWT) uses a sponge or foam-like material (dressing) placed on or inside the wound. The wound is then covered and sealed with a cover dressing that sticks to your skin (is adhesive). This keeps air out. A tube is attached to the cover dressing, and this tube connects to a small pump. The pump sucks fluid and germs from the wound. NPWT helps to increase blood flow to the wound and heal it from the inside. What are the risks? NPWT is usually safe to use. However, problems can occur, including: ??? Skin irritation from the dressing adhesive. ??? Bleeding. ??? Infection. ??? Dehydration. Wounds with large amounts of drainage can cause excessive fluid loss. ??? Pain. Supplies needed: ??? A disposable garbage bag. ??? Soap and water, or hand tester electronic scale. ??? Wound cleanser or salt-water solution (saline). ??? New sponge and cover dressing. ??? Protective clothing. ??? Gauze pad. ??? Vinyl gloves. ??? Tape. ??? Skin protectant. This may be a wipe, film, or spray. ??? Clean or germ-free (sterile) scissors. ??? Eye protection. How to change your dressing Prepare to change your dressing 1. If told by your health care provider, take pain medicine 30 minutes before changing the dressing. 2. Wash your hands with soap and water. Dry your hands with a clean towel. If soap and water are not available, use hand tester electronic scale. 3. Set up a clean station for wound care. 4. Open the dressing package so that the sponge dressing remains on the inside of the package. 5. Wear gloves, protective clothing, and eye protection. Remove old dressing 1. Turn off the pump and disconnect the tubing from the dressing. 2. Carefully remove the adhesive cover dressing in the direction of your hair growth. 3. Remove the sponge dressing that is inside the wound. If the sponge sticks, use a wound cleanser or saline solution to wet the sponge and help it come off more easily. 4. Throw the old sponge and cover dressing supplies into the garbage bag. 5. Remove your gloves by grabbing the cuff and turning the glove inside out. Place the gloves in the trash immediately. 6. Wash your hands with soap and water. Dry your hands with a clean towel. If soap and water are not available, use hand tester electronic scale. Clean your wound ??? Wear gloves, protective clothing, and eye protection. Follow your health care provider's instructions on how to clean your wound. You may be told to: 1. Clean the wound using a saline solution or a wound cleanser and a clean gauze pad. 2. Pat the wound dry with a gauze pad. Do not rub the wound. 3. Throw the gauze pad into the garbage bag. 4. Remove your gloves by grabbing the cuff and turning the glove inside out. Place the gloves in the trash immediately. 5. Wash your hands with soap and water. Dry your hands with a clean towel. If soap and water are not available, use hand tester electronic scale. Apply new dressing ??? Wear gloves, protective clothing, and eye protection. 1. If told by your health care provider, apply a skin protectant to any skin that will be exposed to adhesive. Let the skin protectant dry. 2. Cut a piece of new sponge dressing and put it on or in the wound. 3. Using clean scissors, cut a nickel-sized hole in the new cover dressing. 4. Apply the cover dressing. 5. Attach the suction tube over the hole in the cover dressing. 6. Take off your gloves. Put them in the plastic bag with the old dressing. Tie the bag shut and throw it away. 7. Wash your hands with soap and water. Dry your hands with a clean towel. If soap and water are not available, use hand tester electronic scale. 8. Turn the pump back on. The sponge dressing should collapse. Do not change the settings on the machine without talking to a health care provider. 9. Replace the container in the pump that collects fluid if it is full. Replace the container per the ignition specialist's instructions or at least once a week, even if it is not full. General tips and recommendations If the alarm sounds: ??? Stay calm. ??? Do not turn off the pump or do anything with the dressing. ??? Reasons the alarm may go off: ? The battery is low. Change the battery or plug the device into electrical power. ? The dressing has a leak. Find the leak and put tape over the leak. ? The fluid collection container is full. Change the fluid container. ??? Call your health care provider right away if you cannot fix the problem. ??? Explain to your health care provider what is happening. Follow his or her instructions. General instructions ??? Do not turn off the pump unless told to do so by your health care provider. ??? Do not turn off the pump for more than 2 hours. If the pump is off for more than 2 hours, the dressing will need to be changed. ??? If your health care provider says it is okay to shower: ? Do not take the pump into the shower. ? Make sure the wound dressing is protected and sealed. The wound dressing must stay dry. ??? Check frequently that the machine indicates that therapy is on and that all clamps are open. ??? Do not use [id number]-donlhcw medicated or antiseptic creams, sprays, liquids, or dressings unless your health care provider approves. Contact a health care provider if: ??? You have new pain. ??? You develop irritation, a rash, or itching around the wound or dressing. ??? You see new black or yellow tissue in your wound. ??? The dressing changes are painful or cause bleeding. ??? The pump has been off for more than 2 hours, and you do not know how to change the dressing. ??? The pump alarm goes off, and you do not know what to do. Get help right away if: ??? You have a lot of bleeding. ??? The wound breaks open. ??? You have severe pain. ??? You have signs of infection, such as: ? More redness, swelling, or pain. ? More fluid or blood. ? Warmth. ? Pus or a bad smell. ? Red streaks leading from the wound. ? A fever. ??? You see a sudden change in the color or texture of the drainage. ??? You have signs of dehydration, such as: ? Little or no tears, urine, or sweat. ? Muscle cramps. ? Very dry mouth. ? Headache. ? Dizziness. Summary ??? Negative pressure wound therapy (NPWT) is a device that helps your wound heal. ??? Set up a clean station for wound care. Your health care provider will tell you what supplies to use. ??? Follow your health care provider's instructions on how to clean your wound and how to change the dressing. ??? Contact a health care provider if you have new pain, an irritation, or a rash, or if the alarm goes off and you do not know what to do. ??? Get help right away if you have a lot of bleeding, your wound breaks open, or you have severe pain. Also, get help if you have signs of infection. This information is not intended to replace advice given to you by your health care provider. Make sure you discuss any questions you have with your health care provider. Document Released: 12/25/2012 Document Revised: 01/25/2020 Document Reviewed: 12/21/2019 [employer] ? 2019 [employer] Hematology Hematoma A hematoma is a collection of blood under the skin, in an organ, in a body space, in a joint space, or in other tissue. The blood can thicken (clot) to form a lump that you can see and feel. The lump is often firm and may become sore and tender. Most hematomas get better in a few days to weeks. However, some hematomas may be serious and require medical care. Hematomas can range from very small to very large. What are the causes? This condition is caused by: ??? A blunt or penetrating injury. ??? A leakage from a blood vessel under the skin. ??? Some medical procedures, including surgeries, such as oral surgery, face lifts, and surgeries on the joints. ??? Some medical conditions that cause bleeding or bruising. There may be multiple hematomas that appear in different areas of the body. What increases the risk? You are more likely to develop this condition if: ??? You are an older adult. ??? You use blood thinners. What are the signs or symptoms? Symptoms of this condition depend on where the hematoma is located. Common symptoms of a hematoma that is under the skin include: ??? A firm lump on the body. ??? Pain and tenderness in the area. ??? Bruising. Blue, dark blue, purple-red, or yellowish skin (discoloration) may appear at the site of the hematoma if the hematoma is close to the surface of the skin. Common symptoms of a hematoma that is deep in the tissues or body spaces may be less obvious. They include: ??? A collection of blood in the stomach (intra-abdominal hematoma). This may cause pain in the abdomen, weakness, fainting, and shortness of breath. ??? A collection of blood in the head (intracranial hematoma). This may cause a headache or symptoms such as weakness, trouble speaking or understanding, or a change in consciousness.? How is this diagnosed? This condition is diagnosed based on: ??? Your medical history. ??? A physical exam. ??? Imaging tests, such as an ultrasound or CT scan. These may be needed if your health care provider suspects a hematoma in deeper tissues or body spaces. ??? Blood tests. These may be needed if your health care provider believes that the hematoma is caused by a medical condition. How is this treated? Treatment for this condition depends on the cause, size, and location of the hematoma. Treatment may include: ??? Doing nothing. The majority of hematomas do not need treatment as many of them go away on their own over time. ??? Surgery or close monitoring. This may be needed for large hematomas or hematomas that affect vital organs. ??? Medicines. Medicines may be given if there is an underlying medical cause for the hematoma. Follow these instructions at home: Managing pain, stiffness, and swelling ??? If directed, put ice on the affected area. ? Put ice in a plastic bag. ? Place a towel between your skin and the bag. ? Leave the ice on for 20 minutes, 2?3 times a day for the first couple of days. ??? If directed, apply heat to the affected area after applying ice for a couple of days. Use the heat source that your health care provider recommends, such as a moist heat pack or a heating pad. ? Place a towel between your skin and the heat source. ? Leave the heat on for 20?30 minutes. ? Remove the heat if your skin turns bright red. This is especially important if you are unable to feel pain, heat, or cold. You may have a greater risk of getting burned. ??? Raise (elevate) the affected area above the level of your heart while you are sitting or lying down. ??? If told, wrap the affected area with an elastic bandage. The bandage applies pressure (compression) to the area, which may help to reduce swelling and promote healing. Do not wrap the bandage too tightly around the affected area. ??? If your hematoma is on a leg or foot (lower extremity) and is painful, your health care provider may recommend crutches. Use them as told by your health care provider. General instructions ??? Take ctfh-dln-jxiayie and prescription medicines only as told by your health care provider. ??? Keep all follow-up visits as told by your health care provider. This is important. Contact a health care provider if: ??? You have a fever. ??? The swelling or discoloration gets worse. ??? You develop more hematomas. Get help right away if: ??? Your pain is worse or your pain is not controlled with medicine. ??? Your skin over the hematoma breaks or starts bleeding. ??? Your hematoma is in your chest or abdomen and you have weakness, shortness of breath, or a change in consciousness. ??? You have a hematoma on your scalp that is caused by a fall or injury, and you also have: ? A headache that gets worse. ? Trouble speaking or understanding speech. ? Weakness. ? Change in alertness or consciousness. Summary ??? A hematoma is a collection of blood under the skin, in an organ, in a body space, in a joint space, or in other tissue. ??? This condition usually does not need treatment because many hematomas go away on their own over time. ??? Large hematomas, or those that may affect vital organs, may need surgical drainage or monitoring. If the hematoma is caused by a medical condition, medicines may be prescribed. ??? Get help right away if your hematoma breaks or starts to bleed, you have shortness of breath, or you have a headache or trouble speaking after a fall. This information is not intended to replace advice given to you by your health care provider. Make sure you discuss any questions you have with your health care provider. Document Released: 05/17/2005 Document Revised: 03/08/2019 Document Reviewed: 03/08/2019 [employer] ? 2020 [employer] Infectious Disease Cellulitis, Adult Cellulitis is a skin infection. The infected area is often warm, red, swollen, and sore. It occurs most often in the arms and lower legs. It is very important to get treated for this condition. What are the causes? This condition is caused by bacteria. The bacteria enter through a break in the skin, such as a cut, burn, insect bite, open sore, or crack. What increases the risk? This condition is more likely to occur in people who: ??? Have a weak body defense system (immune system). ??? Have open cuts, diego, bites, or scrapes on the skin. ??? Are older than 60 years of age. ??? Have a blood sugar problem (diabetes). ??? Have a long-lasting (chronic) liver disease (cirrhosis) or kidney disease. ??? Are very overweight (obese). ??? Have a skin problem, such as: ? Itchy rash (eczema). ? Slow movement of blood in the veins (venous stasis). ? Fluid buildup below the skin (edema). ??? Have been treated with high-energy rays (radiation). ??? Use IV drugs. What are the signs or symptoms? Symptoms of this condition include: ??? Skin that is: ? Red. ? Streaking. ? Spotting. ? Swollen. ? Sore or painful when you touch it. ? Warm. ??? A fever. ??? Chills. ??? Blisters. How is this diagnosed? This condition is diagnosed based on: ??? Medical history. ??? Physical exam. ??? Blood tests. ??? Imaging tests. How is this treated? Treatment for this condition may include: ??? Medicines to treat infections or allergies. ??? Home care, such as: ? Rest. ? Placing cold or warm cloths (compresses) on the skin. ??? Hospital care, if the condition is very bad. Follow these instructions at home: Medicines ??? Take xlqu-xbd-ebbvuob and prescription medicines only as told by your doctor. ??? If you were prescribed an antibiotic medicine, take it as told by your doctor. Do not stop taking it even if you start to feel better. General instructions ??? Drink enough fluid to keep your pee (urine) pale yellow. ??? Do not touch or rub the infected area. ??? Raise (elevate) the infected area above the level of your heart while you are sitting or lying down. ??? Place cold or warm cloths on the area as told by your doctor. ??? Keep all follow-up visits as told by your doctor. This is important. Contact a doctor if: ??? You have a fever. ??? You do not start to get better after 1?2 days of treatment. ??? Your bone or joint under the infected area starts to hurt after the skin has healed. ??? Your infection comes back. This can happen in the same area or another area. ??? You have a swollen bump in the area. ??? You have new symptoms. ??? You feel ill and have muscle aches and pains. Get help right away if: ??? Your symptoms get worse. ??? You feel very sleepy. ??? You throw up (vomit) or have watery poop (diarrhea) for a long time. ??? You see red streaks coming from the area. ??? Your red area gets larger. ??? Your red area turns dark in color. These symptoms may represent a serious problem that is an emergency. Do not wait to see if the symptoms will go away. Get medical help right away. Call your local emergency services (911 in the [place] Do not drive yourself to the hospital. Summary ??? Cellulitis is a skin infection. The area is often warm, red, swollen, and sore. ??? This condition is treated with medicines, rest, and cold and warm cloths. ??? Take all medicines only as told by your doctor. ??? Tell your doctor if symptoms do not start to get better after 1?2 days of treatment. This information is not intended to replace advice given to you by your health care provider. Make sure you discuss any questions you have with your health care provider. Document Released: 03/21/2009 Document Revised: 02/22/2019 Document Reviewed: 02/22/2019 [employer] ? 2020 [employer] Pharmacology What You Need to Know About Warfarin Warfarin is a blood thinner (anticoagulant). Anticoagulants help to prevent the formation of blood clots. They also help to stop the growth of blood clots. Who should use warfarin? Warfarin is prescribed for people who are at risk for developing harmful blood clots, such as people who have: ??? Surgically implanted mechanical heart valves. ??? Irregular heart rhythms (atrial fibrillation). ??? Certain clotting disorders. ??? A history of harmful blood clotting in the past. This includes people who have had: ? A stroke. ? Blood clot in the lungs (pulmonary embolism, or PE). ? Blood clot in the legs (deep vein thrombosis, or DVT). ??? An existing blood clot. How is warfarin taken? Warfarin is a medicine that you take by mouth (orally). Warfarin tablets come in different strengths. Each tablet strength is a different color, with the amount of warfarin printed on the tablet. If you get a new prescription filled and the color of your tablet is different than usual, tell your pharmacist or health care provider immediately. What blood tests do I need while taking warfarin? The goal of warfarin therapy is to lessen the clotting tendency of blood, but not to prevent clotting completely. Your health care provider will monitor the anticoagulation effect of warfarin closely and will adjust your dose as needed. Warfarin is a medicine that needs to be closely monitored, so it is very important to keep all lab visits and follow-up visits with your health care provider. While taking warfarin, you will need to have blood tests (prothrombin tests, or PT tests) regularly to measure your blood clotting time. This type of test can be done with a finger stick or a blood draw. What does the INR test result mean? The PT test results will be reported as the International Normalized Ratio (INR). The INR tells your health care provider whether your dosage of warfarin needs to be changed. The longer it takes your blood to clot, the higher the INR. Your health care provider will tell you your target INR range. If your INR is not in your target range, your health care provider may adjust your dosage. ??? If your INR is above your target range, there is a risk of bleeding. Your dosage of warfarin may need to be decreased. ??? If your INR is below your target range, there is a risk of clotting. Your dosage of warfarin may need to be increased. How often is the INR test needed? When you first start warfarin, you will usually have your INR checked every few days. ??? You may need to have INR tests done more than once a week until you are taking the correct dosage of warfarin. ??? After you have reached your target INR, your INR will be tested less often. However, you will need to have your INR checked at least once every 4?6 weeks for the entire time you are taking warfarin. What are the side effects of warfarin? Too much warfarin can cause bleeding (hemorrhage) in any part of the body, such as: ??? Bleeding from the gums. ??? Unexplained bruises. ??? Bruises that get larger. ??? Blood in the urine. ??? Bloody or dark stools. ??? Bleeding in the brain (hemorrhagic stroke). ??? A nosebleed that is not easily stopped. ??? Coughing up blood. ??? Vomiting blood. Warfarin use may also cause: ??? Skin rash or irritations ??? Nausea that does not go away. ??? Severe pain in the back or joints. ??? Painful toes that turn blue or purple (purple toe syndrome). ??? Painful ulcers that do not go away (skin necrosis). What are the signs and symptoms of a blood clot? Too little warfarin can increase the risk of blood clots in your legs, lungs, or arms. Signs and symptoms of a DVT in your leg or arm may include: ??? Pain or swelling in your leg or arm. ??? Skin that is red or warm to the touch on your arm or leg. Signs and symptoms of a pulmonary embolism may include: ??? Shortness of breath or difficulty breathing. ??? Chest pain. ??? Unexplained fever. What are the signs and symptoms of a stroke? If you are taking too much or too little warfarin, you can have a stroke. Signs and symptoms of a stroke may include: ??? Weakness or numbness of your face, arm, or leg, especially on one side of your body. ??? Confusion or trouble thinking clearly. ??? Difficulty seeing with one or both eyes. ??? Difficulty walking or moving your arms or legs. ??? Dizziness. ??? Loss of balance or coordination. ??? Trouble speaking, trouble understanding speech, or both (aphasia). ??? Sudden, severe headache with no known cause. ??? Partial or total loss of consciousness. What precautions do I need to take while using warfarin? Take warfarin exactly as told by your health care provider. Doing this helps you avoid bleeding or blood clots that could result in serious injury, pain, or disability. ??? Take your medicine at the same time every day. If you forget to take your dose of warfarin, take it as soon as you remember that day. If you do not remember on that day, do not take an extra dose the next day. ??? Contact your health care provider if you miss or take an extra dose. Do not change your dosage on your own to make up for missed or extra doses. ??? Wear or carry identification that says that you are taking warfarin. ??? Make sure that all health care providers, including your dentist, know you are taking warfarin. ??? If you need surgery, talk with your health care provider about whether you should stop taking warfarin before your surgery. ??? Avoid situations that cause bleeding. You may bleed more easily while taking warfarin. To limit bleeding, take the following actions: ? Use a softer toothbrush. ? Floss with waxed floss, not unwaxed floss. ? Shave with an electric razor, not with a blade. ? Limit your use of sharp objects. ? Avoid potentially harmful activities, such as contact sports. What do I need to know about warfarin and or ? Warfarin is not recommended during the first trimester of due to an increased risk of defects. In certain situations, a woman may take warfarin after her first trimester of . ??? If you are taking warfarin and you become or plan to become , contact your health care provider right away. ??? If you plan to breastfeed while taking warfarin, talk with your health care provider first. What do I need to know about warfarin and alcohol or drug use? Avoid drinking alcohol, or limit alcohol intake to no more than 1 drink a day for non women and 2 drinks a day for men. One drink equals 12 oz of beer, 5 oz of wine, or 1? oz of hard liquor. ? If you change the amount of alcohol that you drink, tell your health care provider. Your warfarin dosage may need to be changed. ??? Avoid tobacco products, such as cigarettes, chewing tobacco, and e-cigarettes. If you need help quitting, ask your health care provider. ? If you change the amount of nicotine or tobacco that you use, tell your health care provider. Your warfarin dosage may need to be changed. ??? Avoid street drugs while taking warfarin. The effects of street drugs on warfarin are not known. What do I need to know about warfarin and other medicines or supplements? Many prescription and sfwx-nxk-frxvaxf medicines can interfere with warfarin. Talk with your health care provider or your pharmacist before starting or stopping any new medicines. This includes stmx-ouh-mixfxrs vitamins, dietary supplements, herbal medicines, and pain medicines. Your warfarin dosage may need to be adjusted. ??? Some common ekuy-rgm-jzxgdnm medicines that may increase the risk of bleeding while taking warfarin include: ? Acetaminophen. ? Aspirin. ? NSAIDs, such as ibuprofen or naproxen. ? Vitamin E. What do I need to know about warfarin and my diet? It is important to maintain a normal, balanced diet while taking warfarin. Avoid major changes in your diet. If you are going to change your diet, talk with your health care provider before making changes. ??? Your health care provider may recommend that you work with a diet and supervisor nutritional yeast (dietitian). ??? Vitamin K decreases the effect of warfarin, and it is found in many foods. Eat a consistent amount of foods that contain vitamin K. For example, you may decide to eat 2 vitamin K-containing foods each day. Most foods that are high in vitamin K are green and leafy. Common foods that contain high amounts of vitamin K include: ??? Kale, raw or cooked. ??? Spinach, raw or cooked. ??? Collards, raw or cooked. ??? Kittitian chard, raw or cooked. ??? Mustard greens, raw or cooked. ??? Turnip greens, raw or cooked. ??? Parsley, raw. ??? Broccoli, cooked. ??? Noodles, eggs, and spinach, enriched. ??? Gail sprouts, raw or cooked. ??? Beet greens, raw or cooked. ??? Endive, raw. ??? Cabbage, cooked. ??? Asparagus, cooked. Foods that contain moderate amounts of vitamin K include: ??? Broccoli, raw. ??? Cabbage, raw. ??? Bok bijan, cooked. ??? Green leaf lettuce, raw ??? Prunes, stewed. ??? Pickles. ??? Kiwi. ??? Edamame, cooked. ??? Lagn lettuce, raw. ??? Avocado. ??? Tuna, canned in oil. ??? Okra, cooked. ??? Black-eyed peas, cooked. ??? Green beans, cooked or raw. ??? Blueberries, raw. ??? Blackberries, raw. ??? Peas, cooked or raw. Contact a health care provider if: ??? You miss a dose. ??? You take an extra dose. ??? You plan to have any kind of surgery or procedure. ??? You are unable to take your medicine due to nausea, vomiting, or diarrhea. ??? You have any major changes in your diet or you plan to make any major changes in your diet. ??? You start or stop any caqr-por-fbcgzvs medicine, prescription medicine, or dietary supplement. ??? You become , plan to become , or think you may be . ??? You have menstrual periods that are heavier than usual. ??? You have unusual bruising. Get help right away if: ??? You develop symptoms of an allergic reaction, such as: ? Swelling of the lips, face, tongue, mouth, or throat. ? Rash. ? Itching. ? Itchy, red, swollen areas of skin (hives). ? Trouble breathing. ? Chest tightness. ??? You have: ? Signs or symptoms of a stroke. ? Signs or symptoms of a blood clot. ? A fall or have an accident, especially if you hit your head. ? Blood in your urine. Your urine may look reddish, pinkish, or tea-colored. ? Blood in your stool. Your stool may be black or bright red. ? Bleeding that does not stop after applying pressure to the area for 30 minutes. ? Severe pain in your joints or back. ? Purple or blue toes. ? Skin ulcers that do not go away. ??? You vomit blood or cough up blood. The blood may be bright red, or it may look like coffee grounds. These symptoms may represent a serious problem that is an emergency. Do not wait to see if the symptoms will go away. Get medical help right away. Call your local emergency services (911 in the [place] Do not drive yourself to the hospital. Summary ??? Warfarin needs to be closely monitored with blood tests. It is very important to keep all lab visits and follow-up visits with your health care provider. ??? Make sure that you know your target INR range and your warfarin dosage. ??? Wear or carry identification that says that you are taking warfarin. ??? Take warfarin at the same time every day. Call your health care provider if you miss a dose or if you take an extra dose. Do not change the dosage of warfarin on your own. ??? Know the signs and symptoms of blood clots, bleeding, and a stroke. Know when to get emergency medical help. ??? Tell all health care providers who care for you that you are taking warfarin. ??? Talk with your health care provider or your pharmacist before starting or stopping any new medicines. ??? Monitor how much vitamin K you eat every day. Try to eat the same amount every day. This information is not intended to replace advice given to you by your health care provider. Make sure you discuss any questions you have with your health care provider. Document Released: 10/03/2006 Document Revised: 05/16/2018 Document Reviewed: 12/29/2016 [employer] Patient Education ? 2020 [employer]. documented in this encounter Plan of Treatment Not on file documented as of this encounter Visit Diagnoses Not on filedocumented in this encounter Care Teams Communications Executive Relationship Specialty Start Date End Date Jay Howell MD [address] [place] [phone] PCP - General Emergency Medicine 11/12/23 documented as of this encounter
--- OUTSIDE RECORDS SUMMARY | 2025-07-12 08:52 | XMS_ITS | Encounter Summary ---
Author Organization [employer] ([place], [place], [place], [place]) Address [address] [place] [address] Care Team Providers Care Risk Control Specialist Name Role Phone Jay Howell MD Primary Care Provider [phone] Encounter Details Date Type Department Care Team (Late st Contact Info) Description 09/08/2020 Transcribed Document [facility] [place] [facility] [place] [address] ProviderJessie MD [address] [place] [address] Social History Tobacco Use Types Packs/Day Years Used Date Smoking Tobacco: Never Assessed Comments Unknown Sex and Gender Information Value Date Recorded Sex Assigned at Not on file Legal Sex Female 7:30 PM CDT Gender Identity Not on file Sexual Orientation Not on file documented as of this encounter Miscellaneous Notes * Cerner Conversion Note - Jessie Yuen MD - 09/08/2020 5:27 PM WARBLE SAW OPERATOR Patient: SKYLER MONTOYA Age: 79 Years Sex: Female : 1940 Wound Location: LEFT pretib Type of debridement: nonexcisional Indications: Non-viable tissue in the base of the wound Pre-debridement wound dimensions: 2.8x2x0.3cm Post-debridement wound dimensions: same Surgeon: Irina Troy PA-C Anesthesia: Lidocaine 5% gel Blood Loss: minimal Procedure Description: The area was cleaned with sterile saline solution. 25 lidocaine gel was applied to the wound for several minutes. Utilizing a #4 curette all of the necrotic material/slough was debrided down to healthy granulation tissue. The deepest layer of debridement was subcutaneous tissue. Hemostasis was achieved with manual compression. New dressing was applied. Electronically signed by Gayle Finnegan Conversion Group Exercise Class Instructor Cerner at 02/04/2023 2:11 PM CDT documented in this encounter Plan of Treatment Not on file documented as of this encounter Visit Diagnoses Not on filedocumented in this encounter Care Teams Risk Control Specialist Relationship Specialty Start Date End Date Jay Howell MD [address] [place] [phone] PCP - General Emergency Medicine 11/12/23 documented as of this encounter
--- OUTSIDE RECORDS SUMMARY | 2025-07-12 08:52 | XMS_ITS | Encounter Summary ---
Author Organization [employer] ([place], [place], [place], [place]) Address [address] [place] [address] Care Team Providers Care Vice President Investor Relations Name Role Phone Jay Howell MD Primary Care Provider [phone] Encounter Details Date Type Department Care Team (Late st Contact Info) Description 12/20/2018 Transcribed Document [facility] [place] Family Medicine [address] [place] [address] ProviderJessie MD [address] [place] [address] Social History Tobacco Use Types Packs/Day Years Used Date Smoking Tobacco: Never Assessed Comments Unknown Sex and Gender Information Value Date Recorded Sex Assigned at Not on file Legal Sex Female 7:30 PM CDT Gender Identity Not on file Sexual Orientation Not on file documented as of this encounter Miscellaneous Notes * Cerner Conversion Note - Historical ProviderMD - 12/20/2018 9:55 PM ACCOUNT RESOLUTION SPECIALIST Pain Assessment Entered On: 12/21/2018 4:53 EST Performed On: 12/20/2018 22:31 EST by Deisi Aguiar RN Intervention Information: nitroglycerin Performed by Deisi Aguiar RN on 12/20/2018 22:26:00 EST nitroglycerin,0.3mg SubLINgual,Chest Pain Pain Assessment Pain Assessment : Follow-up assessment [...] on filedocumented in this encounter Care Teams Vice President Investor Relations Relationship Specialty Start Date End Date Jay Howell MD [address] [place] [phone] PCP - General Emergency Medicine 11/12/23 documented as of this encounter
--- OUTSIDE RECORDS SUMMARY | 2025-07-12 08:52 | XMS_ITS | Encounter Summary ---
Author Organization [employer] ([place], [place], [place], [place]) Address [address] [place] [address] Care Team Providers Care General Farm Manager Name Role Phone Jay Howell MD Primary Care Provider [phone] Encounter Details Date Type Department Care Team (Late st Contact Info) Description 08/29/2020 Transcribed Document [facility] [place] [facility] [place] [address] ProviderJessie MD [address] [place] [address] Social History Tobacco Use Types Packs/Day Years Used Date Smoking Tobacco: Never Assessed Comments Unknown Sex and Gender Information Value Date Recorded Sex Assigned at Not on file Legal Sex Female 7:30 PM CDT Gender Identity Not on file Sexual Orientation Not on file documented as of this encounter Miscellaneous Notes * Cerner Conversion Note - Jessie Yuen MD - 08/29/2020 2:44 PM CONSTRUCTION JOB TITLES Final Discharge Planning Entered On: 08/29/2020 14:44 EST Performed On: 08/29/2020 14:44 EST by KAVITA PELLETIER RN-Travel Rn Final Discharge Planning Discharge Arrangements : Patient Post-Acute Information Patient Name: SKYLER MONTOYA Gender: Female : [birth year] Age: 79 Years No Post-Acute Placement(s) Listed No Post-Acute Service(s) Listed No [place] Referral(s) Listed Patient Offered Choice/Affiliations Explained : Yes Important Medicare Message Reviewed With : Patient Important Medicare Message Reviewed D/T : 08/29/2020 9:00 EST KAVITA PELLETIER RN-Travel Rn - 08/29/2020 14:44 EST Electronically signed by Interface, [facility] Conversion Ticketing Agent Cerner at 02/04/2023 1:55 PM CDT documented in this encounter Plan of Treatment Not on file documented as of this encounter Visit Diagnoses Not on filedocumented in this encounter Care Teams General Farm Manager Relationship Specialty Start Date End Date Jay Howell MD [address] [place] [phone] PCP - General Emergency Medicine 11/12/23 documented as of this encounter
--- OUTSIDE RECORDS SUMMARY | 2025-07-12 08:52 | XMS_ITS | Encounter Summary ---
Author Organization [employer] ([place], [place], [place], [place]) Address [address] [place] [address] Care Team Providers Care Aviation Electrician Name Role Phone Jay Howell MD Primary Care Provider [phone] Encounter Details Date Type Department Care Team (Late st Contact Info) Description 12/21/2018 Transcribed Document [facility] [place] [address] [place] [address] ProviderJessie MD [address] [place] [address] Social History Tobacco Use Types Packs/Day Years Used Date Smoking Tobacco: Never Assessed Comments Unknown Sex and Gender Information Value Date Recorded Sex Assigned at Not on file Legal Sex Female 7:30 PM CDT Gender Identity Not on file Sexual Orientation Not on file documented as of this encounter Miscellaneous Notes * Cerner Conversion Note - Jessie Yuen MD - 12/21/2018 10:31 AM AIRCRAFT ELECTRICIAN Discharge Instructions Entered On: 12/21/2018 10:31 EST Performed On: 12/21/2018 10:31 EST by AUSTEN WEAVER, JAMSHID DC Instructions HWD Stroke/TIA Discharge Ins : N/A Heart Failure Discharge Ins : N/A Warfarin Discharge Ins : N/A Diet After Discharge : Heart healthy diet Activity After Discharge : Rest and relax today, No strenuous activities, No heavy lifting over 10 pounds Showering/Bathing : May shower, No tub bathing, soaking, or swimming Wound/Incision Care After Discharge : Keep operative site/wound site clean and dry Dinora Vieira, Rn - 12/21/2018 12:16 EST Special Instructions : STOP losartan (cozaar) HOLD coumadin (warfarin) now and restart on 12-24-18 AUSTEN WEAVER, [facility] - 12/21/2018 10:33 EST Electronically signed by [facility], [facility] Conversion Machined Parts Metal Sprayer Cerner at 02/04/2023 1:57 PM CDT documented in this encounter Plan of Treatment Not on file documented as of this encounter Visit Diagnoses Not on filedocumented in this encounter Care Teams Aviation Electrician Relationship Specialty Start Date End Date Jay Howell MD [address] [place] [phone] PCP - General Emergency Medicine 11/12/23 documented as of this encounter
--- OUTSIDE RECORDS SUMMARY | 2025-07-12 08:52 | XMS_ITS | Clinical Summary ---
Author Organization [facility] Address [address] [place] [address] Phone Care Team Providers Care Chief Knowledge Officer Name Role Phone Smita ESCOBEDO, Jorje Areco [ ] Conditions or Problems Problem Name Problem Code Onset Date Status Entry Date Provider Comment Standard Description Annotate Contusion of left lower leg, subsequent encounter(s) S80.12xD (ICD-10-CM) Active Arlen Feng Contusion of left lower leg, subsequent encounter Cellulitis of LLE L03.116 (ICD-10-CM) Active Arlen Feng Cellulitis of left lower limb DM II with diabetic PVD 194119914 (SNOMED CT) Active Arlen Feng Peripheral vascular disease Benign Essential Hypertension 3416216 (SNOMED CT) Active Arlen Feng Benign essential hypertension Medications Medication Instructions Start Date Stop Date Generic Name [facility] Provider VALSARTAN 160 MG TABS 1 tablet po daily VALSARTAN 34057297230 Leti Dela Cruz ALPRAZOLAM 0.5 MG TABS Take one by mouth daily/PRN ALPRAZOLAM 04910403797 Lexi Nascimentodox VIBRAMYCIN 100 MG ORAL CAPSULE Take by mouth twice a day DOXYCYCLINE HYCLATE 98017925003 Lexi Gipson TERBINAFINE HCL 250 MG TABS Take one by mouth daily TERBINAFINE HCL 95778528589 Lexi Gipson RANEXA 1000 MG ORAL TABLET EXTENDED RELEASE 12 HOUR Take by mouth twice a day RANOLAZINE 62994009618 Lexi Gipson CLOPIDOGREL BISULFATE 75 MG TABS Take one by mouth daily CLOPIDOGREL BISULFATE 18238976800 Lexi Nascimentodox OMEPRAZOLE 40 MG CPDR Take one by mouth daily OMEPRAZOLE 99368336428 Lexi Nascimentodox NORVASC 10 MG TABS Take one by mouth daily AMLODIPINE BESYLATE 00872215646 Lexi Nascimentodox HYDROCODONE-ACET AMINOPHEN 7.5-325 MG TABS Q6H/PRN HYDROCODONE-ACET AMINOPHEN 18204295712 Lexi Nascimentodox DAILY MULTIVITAMIN CAPS Take one by mouth daily MULTIPLE VITAMINS-MINERAL S 51892991599 Lexi Nascimentodox METFORMIN HCL 500 MG TABS Take by mouth twice a day METFORMIN HCL 37382118439 Lexi Thorpex LOVENOX 60 MG/0.6ML SUBCUTANEOUS SOLUTION 70 mg, SubCutaneous, Q12H ENOXAPARIN SODIUM 18389311911 Lexi Nascimentodox LOSARTAN POTASSIUM 100 MG TABS Take one by mouth daily LOSARTAN POTASSIUM 55900019990 Lexi Nascimentodox ACIDOPHILUS LACTOBACILLUS CAPS Take two by mouth daily LACTOBACILLUS 32802097422 Lexi Gipson HYDRALAZINE HCL 50 MG TABS 2 Tab, Oral, BID HYDRALAZINE HCL 39884146828 Lexi Thorpex DORZOLAMIDE HCL 2 % SOLN 1 Drop, Eye Right, BID DORZOLAMIDE HCL 04624157713 Lexi Nascimentodox WARFARIN SODIUM 3 MG TABS Take one by mouth daily WARFARIN SODIUM 33848843480 Lexi Nascimentodox CARVEDILOL 6.25 MG TABS Take one by mouth 3 times daily, morning, afternoon and evening. CARVEDILOL 00486876953 Lexi Nascimentodox ATORVASTATIN CALCIUM 80 MG TABS Take one by mouth daily ATORVASTATIN CALCIUM 29176024844 Lexi Gipson AMOXICILLIN-POT CLAVULANATE 875-125 MG TABS Take by mouth twice a day AMOXICILLIN-POT CLAVULANATE 94907423568 Lexi Gipson Medications Administered No information available. [...] Weight Measured 154.2 [lb_av] weight E& M Weight Measured 154.2 [lb_av] weight E& M Height 63 [in_us] height E&M Immunizations No information available. Advance Directives Directive Description Start Date NO LIVING WILL ON FILE
--- OUTSIDE RECORDS SUMMARY | 2025-07-12 08:52 | XMS_ITS | Encounter Summary ---
Author Organization [employer] ([place], [place], [place], [place]) Address [address] [place] [address] Care Team Providers Care Referral Specialist Name Role Phone Jay Howell MD Primary Care Provider [phone] Encounter Details Date Type Department Care Team (Late st Contact Info) Description 12/14/2018 Transcribed Document [facility] [place] [address] [place] [address] ProviderJessie MD [address] [place], [place] [address] Social History Tobacco Use Types Packs/Day Years Used Date Smoking Tobacco: Never Assessed Comments Unknown Sex and Gender Information Value Date Recorded Sex Assigned at Not on file Legal Sex Female 7:30 PM CDT Gender Identity Not on file Sexual Orientation Not on file documented as of this encounter Miscellaneous Notes * Cerner Conversion Note - Historical ProviderMD - 12/14/2018 4:49 PM BUSINESS BANKING MANAGER CR Chest 2 Vws Ordered: 12/12/2018 Auth (Verified) Reason for Exam: cp 12/13/2018 11:39 12/14/2018 16:49 (LESTER PILLAI PA) Reviewed by Provider, No further action required X1 12/14/2018 16:47 (FLORENTIN CAMARGO) No further action required Electronically signed by Sivan [facility] Conversion Occupational Health And Safety Officer Cerner at 02/04/2023 2:04 PM CDT documented in this encounter Plan of Treatment Not on file documented as of this encounter Visit Diagnoses Not on filedocumented in this encounter Care Teams Referral Specialist Relationship Specialty Start Date End Date Jay Howell MD [address] [place] [phone] PCP - General Emergency Medicine 11/12/23 documented as of this encounter
--- OUTSIDE RECORDS SUMMARY | 2025-07-12 08:52 | XMS_ITS | Encounter Summary ---
Author Organization [employer] ([place], [place], [place], [place]) Address [address] [place] [address] Care Team Providers Care Tax Commissioner Name Role Phone Jay Howell MD Primary Care Provider [phone] Encounter Details Date Type Department Care Team (Late st Contact Info) Description 12/20/2018 Transcribed Document [facility] [place] [facility] [address] [place] [address] ProviderJessie MD [address] [place] [address] Social History Tobacco Use Types Packs/Day Years Used Date Smoking Tobacco: Never Assessed Comments Unknown Sex and Gender Information Value Date Recorded Sex Assigned at Not on file Legal Sex Female 7:30 PM CDT Gender Identity Not on file Sexual Orientation Not on file documented as of this encounter Miscellaneous Notes * Cerner Conversion Note - Historical ProviderMD - 12/20/2018 7:39 PM MUFFLER INSTALLER Admission History, Adult Entered On: 12/20/2018 19:41 EST Performed On: 12/20/2018 19:39 EST by An Ocampo RN Advance Directive Patient has Advance Directive *Q : No, patient requests assist formulating Advance Directive Patient Given Information about AD : Yes Advance Directive Comment : Provided advance directive info. An Ocampo RN - 12/20/2018 19:39 EST Anesthesia/Transfusion History Family History of Anesthesia Reaction : Prior transfusion reaction Type of Transfusion Reaction : Hemolytic reaction Transfusion History : Prior anesthesia without reaction Family History of Anesthesia Reaction : None An Ocampo RN - 12/20/2018 19:39 EST Education Topics, Admission Orientation DCP GENERIC CODE Advance Directives : Verbalizes understanding Allergy Band Applied : Verbalizes understanding Assessment/Vital Signs : Verbalizes understanding Bed Control : Verbalizes understanding Call Light : Verbalizes understanding Confidentiality : Verbalizes understanding Diet/Room Service : Verbalizes understanding Fall Prevention : Verbalizes understanding Hand Hygiene : Verbalizes understanding Healthcare Provider Visit : Verbalizes understanding ID Band Applied : Verbalizes understanding Isolation Precautions : Verbalizes understanding Orientation to Room/Bathroom : Verbalizes understanding Patient Bill of Rights : Verbalizes understanding Patient Rights/Responsibilities : Verbalizes understanding Patient Safety : Verbalizes understanding Personal Privacy Code : Verbalizes understanding Rapid Response Initiated by Patient/Family : Verbalizes understanding Rounding : Verbalizes understanding Siderails use/risks : Verbalizes understanding Skin Precautions : Verbalizes understanding Smoking Policy : Verbalizes understanding Telemetry Monitoring : Verbalizes understanding Television/Phone : Verbalizes understanding Visiting Policy : Verbalizes understanding An Ocampo RN - 12/20/2018 19:39 EST Functional Assessment Living Situation : Home Patient Lives With : Spouse Persons Assisting Patient at Home : Spouse Mobility Assistance Prior to Admission : Independent Current Home Treatments : Blood glucose monitoring, CPAP An Ocampo RN - 12/20/2018 19:39 EST General Info Preferred Name : ilsa Support Person/Patient Meat Pumper : Deanna Support Person/Pt Rep Name : Willard Contact Password : Marvin Support Person/Pt Rep Contact Information : [phone] Want Family/Rep/Phys Notified of Admit : No Emergency Contact #1 : na Emergency Contact #1 Phone Number : na Emergency Contact #1 Relationship : na Emergency Contact #2 : na Emergency Contact #2 Phone Number : na Emergency Contact #2 Relationship : na Primary Language : Ghanaian Preferred Communication Mode : Verbal Communication Barrier : None An Ocampo RN - 12/20/2018 19:39 EST Fall Risk Scales ABCs Fall Injury Risk Identification : Coagulation, Surgery ABC Fall Injury Risk : Moderate to high injury risk THOMAS Hx Falls Immediate/Within 3 Months : Yes Thomas Secondary Diagnosis : No THOMAS Use of Ambulatory Aid : Bed rest/Nurse assist THOMAS IV Therapy or IV Access : Yes Thomas Gait/Transferring : Normal, bedrest, immobile Thomas Mental Status : Oriented to own ability Htomas Fall Risk Score : 45 THOMAS Fall Scale Risk Level : 25-45 Medium Risk [place] Fall Interventions : Adequate lighting, Assistive devices [...] Fall Moderate to High Risk Interventions : Patient room close to nurses station Fall Risk Scale Calc Temp : 0 An Ocampo RN - 12/20/2018 19:39 EST Health Histories Smoking Status : Former smoker, quit more than 30 days ago Smokeless Tobacco Status : Never An Ocampo RN - 12/20/2018 19:39 EST Social History (As Of: 12/20/2018 19:41:43 EST) Tobacco: Smoking Status Former smoker. Comments: [...] (Last Updated: 08/06/2014 13:58:58 EDT by DAVIDA ISAAC, MAHENDRA) Home/Environment: Lives with Spouse. Living situation: Home/Independent. (Last Updated: 12/14/2014 22:42:39 EST by BIPIN HOFF RN) Height and Weight, Clinical Dosing Height Source : Stated Height Entry Format : [place] Height, Feet : 5 ft(Converted to: 152 cm, 60 Inch) Height, Inches : 3 Inch(Converted to: 0 ft 3 Inch, 7.62 cm) Clinical Height : 160.02 cm Weight Source : Standing scale Weight Entry Format : [place] Clinical Dosing Weight : 71.82 kg Weight, Pounds : 158 lb Body Surface Area (BSA) : 1.75 m2 Body Mass Index : 28 kg/m2 (HI) [place] Body Weight : 52 kg An Ocampo RN - 12/20/2018 19:39 EST Infectious Disease History Infectious Disease History : Chicken pox/Shingles, Measles, Mumps Active Surveillance Screen Assessment : Patient does not meet any of above criteria Active Surveillance Screen Negative : Yes Isolation Needed : Standard Fever/Chills Last 48 Hours : No Travel To Regions with Travel Advisories : No Travel Outside [place] Within Last 30 Days : No Contact With Traveler to Advisory Region : No Tuberculosis Symptoms : None An Ocampo RN - 12/20/2018 19:39 EST Influenza Vaccine Asmt, Adult Previous Vaccines from Immunization Schedule : No qualifying data available. Influenza Immunization, Current Season : Yes An Ocampo RN - 12/20/2018 19:39 EST Pneumococcal Vaccine Previous Vaccines from Immunization Schedule : No qualifying data available. Pneumonia Immunization Received : Yes An Ocampo RN - 12/20/2018 19:39 EST Order Details Isolation Precautions Order Detail : Standard Precautions Order Detail : N/A IV Order Detail : 0 Nurse Collect Order Detail : 0 Room Service : Appropriate An Ocampo RN - 12/20/2018 19:39 EST Nutrition History Adaptive Feeding Equipment : Regular Eating Poorly Due to Decreased Appetite : No Unplanned Weight Loss in Past 3-6 Months : No Malnutrition Screening Tool Total(mal) : 0 Malnutrition Screening Tool Risk Level : Patient not at risk An Ocampo RN - 12/20/2018 19:39 EST Psychosocial History Chronic/Terminal Illness w/Freq Visits : No Currently in Unsafe Situation : No Tried to Harm Yourself in the Past? : No Thoughts of Harming/Killing Yourself : No An Ocampo RN - 12/20/2018 19:39 EST Sleep Apnea Risk Assmt Hx of Obstructive Sleep Apnea Diagnosis : Yes BiPAP/CPAP Ordered for Home Use : Yes BiPAP/CPAP Used at Home : Yes BiPAP/CPAP Home Settings : 9 Home BiPAP/CPAP Device With Patient : No An Ocampo RN - 12/20/2018 19:39 EST Spiritual/Cultural Needs Rastafari Preference : Jehovah'S Witness Spiritual/Cultural Needs Comment : joseph after surgery or major surgery An Ocampo RN - 12/20/2018 19:39 EST Valuables and Belongings Valuables and Belongings : Clothing, Personal devices Clothing : Common streetwear Clothing Disposition : Bedside Personal Device Disposition : Bedside Personal Devices : Dentures, partial plate An Ocampo RN - 12/20/2018 19:39 EST Electronically signed by [facility], [facility] Conversion Environmental Engineering Intern Cerner at 02/04/2023 2:16 PM CDT documented in this encounter Plan of Treatment Not on file documented as of this encounter Visit Diagnoses Not on filedocumented in this encounter Care Teams Tax Commissioner Relationship Specialty Start Date End Date Jay Howell MD [address] [place] [phone] PCP - General Emergency Medicine 11/12/23 documented as of this encounter
--- OUTSIDE RECORDS SUMMARY | 2025-07-12 08:52 | XMS_ITS | Encounter Summary ---
Author Organization [employer] ([place], [place], [place], [place]) Address [address] [place] [address] Care Team Providers Care Filer Helper Name Role Phone Jay Howell MD Primary Care Provider [phone] Encounter Details Date Type Department Care Team (Late st Contact Info) Description 12/12/2018 Transcribed Document [facility] [place] [address] [place] [address] ProviderJessie MD [address] [place] [address] Social History Tobacco Use Types Packs/Day Years Used Date Smoking Tobacco: Never Assessed Comments Unknown Sex and Gender Information Value Date Recorded Sex Assigned at Not on file Legal Sex Female 7:30 PM CDT Gender Identity Not on file Sexual Orientation Not on file documented as of this encounter Miscellaneous Notes * Cerner Conversion Note - Jessie ProviderMD - 12/12/2018 10:39 PM LEARNING AND DEVELOPMENT ADMINISTRATOR ED Discharge Entered On: 12/12/2018 22:40 EST Performed On: 12/12/2018 22:39 EST by Dasha Flores RN Discharge Process Patient Disposition : AMA/Elope/LWBS Personal Belongings With Patient : Yes Patient Education Completed : No IV Discontinued : Not applicable Nursing Documentation Completed : No Dasha Flores RN - 12/12/2018 22:39 EST ED Discharge Discharge To : Home with ambulatory/outpatient follow-up Mode Of Departure : Ambulatory Accompanied By : Spouse Dasha Flores RN - 12/12/2018 22:39 EST LWBS/Elopement/AMA Patient leaves after medical screening : Seen Asked to Sign AMA Form : Form signed Provider Notified Name : ANGIE TEIXEIRA MD Provider Notified Time : 12/12/2018 22:40 EST Dasha Flores, RN - 12/12/2018 22:39 EST Electronically signed by [facility], [facility] Conversion Can Filling Room Sweeper Cerner at 02/04/2023 2:15 PM CDT documented in this encounter Plan of Treatment Not on file documented as of this encounter Visit Diagnoses Not on filedocumented in this encounter Care Teams Filer Helper Relationship Specialty Start Date End Date Jay Howell MD [address] [place] [phone] PCP - General Emergency Medicine 11/12/23 documented as of this encounter
--- OUTSIDE RECORDS SUMMARY | 2025-07-12 08:52 | XMS_ITS | Encounter Summary ---
Author Organization [employer] ([place], [place], [place], [place]) Address [address] [place] [address] Care Team Providers Care Gas Station Manager Name Role Phone Jay Howell MD Primary Care Provider [phone] Encounter Details Date Type Department Care Team (Late st Contact Info) Description 08/29/2020 Transcribed Document [facility] [place] [address] [place] [address] ProviderJessie MD [address] [place], [place] [address] Social History Tobacco Use Types Packs/Day Years Used Date Smoking Tobacco: Never Assessed Comments Unknown Sex and Gender Information Value Date Recorded Sex Assigned at Not on file Legal Sex Female 7:30 PM CDT Gender Identity Not on file Sexual Orientation Not on file documented as of this encounter Miscellaneous Notes * Cerner Conversion Note - Historical ProviderMD - 08/29/2020 12:42 PM RADIATION ENGINEER Patient: SKYLER MONTOYA Age: 79 Years Sex: Female : 1940 Subjective Date of Service: 08/29/2020 feeling improved no additional odd sensation in abdomen/chest inr low, added heparin which was ok with Dr. Verde Vital Signs T: 36.4 ??C TMIN: 36.4 ??C TMAX: 36.9 ??C HR: 64(Monitored) RR: 16 BP: 140/49 SpO2: 98% Oxygen Settings (Last) Oxygen Therapy Mode: Room air (08/29/20 09:39:00) Oxygen Flow Rate: 2 Liter/Min (08/26/20 14:45:00) Intake & Output Totals Last 24 Hours (7a-7a) Input Total: 390.43 mL Output Total: 0 mL Balance: 390.43 mL Physical Exam General: [Alert and oriented, well nourished, no acute distress]. Neurologic: [Awake, alert, and oriented X3, CN II-XII intact]. Eye: [PERRL, EOMI, normal conjunctiva]. HENT: [Normocephalic, normal hearing, moist oral mucosa] Neck: [no JVD]. Lungs: [Clear to auscultation, non-labored respiration]. Heart: [Normal rate, regular rhythm, no murmur, or edema]. Abdomen: [Soft, non-distended, normal bowel sounds]. Musculoskeletal: [L reid with wound vac intact. there is improved erythema and contusing of this region, no bleeding]. Skin: [Skin is warm, dry and pink, no rashes]. Psychiatric: [Cooperative, appropriate mood and affect]. Assessment/Plan LLE cellulitis with hematoma -xr negative for fracture -ID consulted, IV abx -BC x 2 -wound care, wound vac, needs HH -SP ID as outpt and failed PO abx therapy PVD -underwent intervention to LLE this admission -vs added plavix, need to clarify with Dr. Verde need for ASA/Plavix/Coumadin-have asked VERONICA Mesa to clarify--stop asa per Dr. Verde and Plavix and coumadin, statin -needs future outpt RLE revascularization Lactic Acidosis, resolved -felt related to above Left leg hematoma -VS consulted -wound care -ok to resume coumadin per Dr. Verde, ok to use heparin gtt. I am reluctant to send out on lovenox as we should see how she shaw with recent hematoma. Uncontrolled HTN, labile and improving [...] current CP or SOB -continue home meds - gas bubbles do not sound like typical ACS. Will check troponins, EKG non revealing renal lesions, bilaterally, felt related to cysts -ct renal protocol ordered: no follow up needed -can follow up with PCP chronic pain with chronic narcotic use dvt ppx: scd, coumadin gi ppx: pepcid, lactobacillus covid intake neg 08/25 pcp: Dr. Avtar Moeller dispo: added heparin gtt for bridging for hx of PE and AFIB. Needs to work with PT. Home in 1-2 days based on INR? VTE Prophylaxis - Medical Clopidogrel 75 mg, Oral, Tab, Daily, Routine, Start 08/27/20 9:00:00 EST, 08/26/20 16:01:00 EST (MURTAUGH, ТАТЬЯНА) Warfarin 3 mg, Oral, Tab, MoWeFr, Start 08/29/20 18:00:00 EST (CRANFILLKAREN, PA-C) Warfarin 2 mg, Oral, Tab, TuThSaSu, Start 08/28/20 18:00:00 EST (CRANFILKAREN Barrios, PA-C) Sequential Compression Device Start: 08/25/20 5:51:00 EST, Bilateral, While patient is in bed, Continuous Order (BETH DAVALOS) Medications acetaminophen, 650 mg= 2 Tab, Oral, Q4H, PRN acetaminophen-HYDROcodone 325 mg-5 mg oral tablet, 1 Tab, Oral, Q4H, PRN atorvastatin, 80 mg= 2 Tab, Oral, At Bedtime carvedilol, 6.25 mg= 1 Tab, Oral, BID cloNIDine, 0.1 mg= 1 Tab, Oral, Q3H, PRN Coumadin, 3 mg= 1 Tab, Oral, MoWeFr Coumadin, 2 mg= 1 Tab, Oral, TuThSaSu DAPTOmycin + Sodium Chloride 0.9% intravenous solution 50 mL dorzolamide 2% ophthalmic solution, 1 Drop, Eye Right, BID DuoNeb 0.5 mg-2.5 mg/3 mL inhalation solution, 3 mL, Nebulized Inhalation , RT_Q3H, PRN hydrALAZINE, 100 mg= 2 Tab, Oral, BID lactobacillus acidophilus, 1 Cap, Oral, Daily losartan, 100 mg= 2 Tab, Oral, Daily multivitamin, 1 Tab, Oral, Daily Norvasc, 10 mg= 1 Tab, Oral, Daily Pepcid, 20 mg= 1 Tab, Oral, BID Phenergan, 12.5 mg= 1 Supp, Rectal, 1-Time, PRN Plavix, 75 mg= 1 Tab, Oral, Daily Ranexa, 1000 mg= 2 Tab, Oral, BID Transderm-Scop 1.5 mg transdermal film, extended release, 1 Patch, TransDermal, 1-Time, PRN Xanax, 0.25 mg= 1 Tab, Oral, At Bedtime, PRN Zofran, 4 mg= 2 mL, IV Push, Q4H, PRN Zosyn + Sodium Chloride 0.9% intravenous solution 100 mL Lab Results Test Name Test Result Date/Time Sodium Level 138 mmol/L 08/29/2020 01:38 EST Potassium Level 3.3 mmol/L (Low) 08/29/2020 01:38 EST Chloride Level 108 mmol/L 08/29/2020 01:38 EST Carbon Dioxide Level 23 mmol/L 08/29/2020 01:38 EST Anion Gap 10 08/29/2020 01:38 EST Glucose Level 108 mg/dL (High) 08/29/2020 01:38 EST Blood Urea Nitrogen 16 mg/dL 08/29/2020 01:38 EST Creatinine Level 0.70 mg/dL 08/29/2020 01:38 EST eGFR >60 mL/min/1.73m2 08/29/2020 01:38 EST eGFR NonAfrican >60 mL/min/1.73m2 08/29/2020 01:38 EST Bun/Creatinine 22.9 (High) 08/29/2020 01:38 EST Calcium Level 9.1 mg/dL 08/29/2020 01:38 EST Device Comment 1 Protocols Followed 08/29/2020 10:56 EST Device Comment 1 Notified Nurse RBV 08/29/2020 05:29 EST Device Comment 1 Notified Nurse RBV 08/28/2020 21:20 EST Device Comment 1 Protocols Followed 08/28/2020 15:44 EST Glucose POC2 198 mg/dL (High) 08/29/2020 10:56 EST Glucose POC2 127 mg/dL (High) 08/29/2020 05:29 EST Glucose POC2 166 mg/dL (High) 08/28/2020 21:20 EST Glucose POC2 123 mg/dL (High) 08/28/2020 15:44 EST CK 86 Units/Liter 08/28/2020 16:50 EST Troponin I Ultra <0.015 ng/mL 08/28/2020 13:50 EST CK MB 1.60 ng/mL 08/29/2020 01:38 EST CK MB 1.70 ng/mL 08/28/2020 16:50 EST WBC 4.9 K/uL 08/29/2020 01:38 EST RBC 3.31 Million/uL (Low) 08/29/2020 01:38 EST Hgb 10.6 g/dL (Low) 08/29/2020 01:38 EST Hct 32.4 % (Low) 08/29/2020 01:38 EST MCV 97.9 fL (High) 08/29/2020 01:38 EST MCH 32.0 pg 08/29/2020 01:38 EST MCHC 32.7 Gram/dL 08/29/2020 01:38 EST Platelet Count 149 K/uL (Low) 08/29/2020 01:38 EST MPV 10.0 fL 08/29/2020 01:38 EST RDW 13.9 % 08/29/2020 01:38 EST Slide Review No 08/29/2020 01:38 EST PT 15.6 Second(s) (High) 08/29/2020 01:38 EST INR 1.5 (High) 08/29/2020 01:38 EST Electronically signed by [facility] Conversion Director Of Event Management Cerner at 02/04/2023 2:06 PM CDT documented in this encounter Plan of Treatment Not on file documented as of this encounter Visit Diagnoses Not on filedocumented in this encounter Care Teams Gas Station Manager Relationship Specialty Start Date End Date Jay Howell MD [address] [place] [phone] PCP - General Emergency Medicine 11/12/23 documented as of this encounter
--- OUTSIDE RECORDS SUMMARY | 2025-07-12 08:52 | XMS_ITS | Encounter Summary ---
Author Organization [employer] ([place], [place], [place], [place]) Address [address] [place] [address] Care Team Providers Care Culinary Art Teacher Name Role Phone Jay Howell MD Primary Care Provider [phone] Encounter Details Date Type Department Care Team (Late st Contact Info) Description 12/12/2018 Transcribed Document [facility] [place] Family Medicine [address] [place] [address] ProviderJessie MD [address] [place] [address] Social History Tobacco Use Types Packs/Day Years Used Date Smoking Tobacco: Never Assessed Comments Unknown Sex and Gender Information Value Date Recorded Sex Assigned at Not on file Legal Sex Female 7:30 PM CDT Gender Identity Not on file Sexual Orientation Not on file documented as of this encounter Miscellaneous Notes * [employer]ner Conversion Note - Historical ProviderMD - 12/12/2018 8:58 PM APPLICATION INTEGRATION ENGINEER ED Triage Entered On: 12/12/2018 21:20 EST Performed On: 12/12/2018 21:18 EST by LUCINDA FOFANA RN ED Triage Across the Room Triage Date/Time : 12/12/2018 21:18 EST Chief Complaint : pt c/o mscp x 2 hours rad to neck & L arm. reports seen bt card in [place] for same earlier this week, reports she needs a cath LUCINDA FOFANA RN - 12/12/2018 21:18 EST DCP GENERIC CODE Tracking Acuity : 2 - Emergent Tracking Group : [facility] ED LUCINDA FOFANA RN - 12/12/2018 21:18 EST Mode of Arrival : Ambulatory Transported to ED by : Private vehicle To Room Via : Ambulate Accompanied By : Friend ED Vital Signs : Document Height & Weight : Document ED Allergies : Document ED Reason for Visit : Document Tetanus Immunization : Less than 5 years LUCINDA FOFANA RN - 12/12/2018 21:18 EST Infectious Disease History Infectious Disease History : Chicken pox/Shingles, Measles, Mumps Isolation Needed : Standard Fever/Chills Last 48 Hours : No Travel To Regions with Travel Advisories : No Travel Outside [place] Within Last 30 Days : No Contact With Traveler to Advisory Region : No Tuberculosis Symptoms : None LUCINDA FOFANA RN - 12/12/2018 21:18 EST Vital Signs ED Temperature Source : Oral Temperature Mode : Fahrenheit Temperature, Fahrenheit : 98.2 Deg F Clinical Temperature, C : 36.8 Deg C Oxygen Therapy Mode : Room air Peripheral Pulse Rate : 65 bpm Respiratory Rate : 17 Breaths/Min Blood Pressure Location : Arm, right upper Blood Pressure Source : Non-Invasive BP Device Systolic Blood Pressure : 193 mmHg (HI) Diastolic Blood Pressure : 80 mmHg Oxygen Saturation : 96 % LUCINDA FOFANA RN - 12/12/2018 21:18 EST Allergy (As Of: 12/12/2018 21:20:38 EST) Allergies (Active) Macrodantin Estimated Onset Date: Unspecified ; Created By: KENYON CHAMBERS RN; Reaction Status: Active ; Category: Drug ; Substance: Macrodantin ; Type: Allergy ; Updated By: KENYON CHAMBERS RN; Reviewed Date: 12/12/2018 21:19 EST morphine Estimated Onset Date: Unspecified ; Reactions: rash, rash ; Created By: AUSTIN Nuñez; Reaction Status: Active ; Category: Drug ; Substance: morphine ; Type: Allergy ; Updated By: AUSTIN Nuñez; Reviewed Date: 12/12/2018 21:19 EST nitrofurantoin Estimated Onset Date: Unspecified ; Reactions: blisters, blisters ; Created By: AUSTIN uNñez; Reaction Status: Active ; Category: Drug ; Substance: nitrofurantoin ; Type: Allergy ; Updated By: AUSTIN Nuñez; Reviewed Date: 12/12/2018 21:19 EST Diagnosis Control ED (As Of: 12/12/2018 21:20:38 EST) Problems(Active) Apnea, sleep (SNOMED CT :595891099 ) Name of Problem: Apnea, sleep ; Recorder: JUAN LUIS GLI RN; Confirmation: Confirmed ; Classification: Medical ; Code: [id number] ; Contributor System: PowerChart ; Last Updated: 11/12/2014 10:12 EST ; Life Cycle Date: 11/12/2014 ; Life Cycle Status: Active ; Vocabulary: SNOMED CT Arthritis (SNOMED CT :5702939 ) Name of Problem: Arthritis ; Recorder: KENYON CHAMBERS RN; Confirmation: Confirmed ; Classification: Medical ; Code: [id number] ; Contributor System: PowerChart ; Last Updated: 04/10/2016 8:04 EDT ; Life Cycle Date: 08/13/2013 ; Life Cycle Status: Active ; Vocabulary: SNOMED CT Atrial fibrillation with RVR (SNOMED CT :1587889347 ) Name of Problem: Atrial fibrillation with RVR ; Recorder: SANG RICO APR; Confirmation: Confirmed ; Classification: Medical ; Code: [id number] ; Contributor System: PowerChart ; Last Updated: 04/10/2016 8:05 EDT ; Life Cycle Date: 04/10/2016 ; Life Cycle Status: Active ; Responsible Provider: SANG RICO APR; Vocabulary: SNOMED CT Blood clot (SNOMED CT :311792146 ) Name of Problem: Blood clot ; Recorder: KENYON CHAMBERS RN; Confirmation: Confirmed ; Classification: Patient Stated ; Code: [id number] ; Contributor System: PowerChart ; Last Updated: [...] Vocabulary: Patient Care Chest pain (SNOMED CT :60911702 ) Name of Problem: Chest pain ; Recorder: SANG RICO APR; Confirmation: Complaint of ; Classification: Medical ; Code: 15836148 ; Contributor System: PowerChart ; Last Updated: 04/10/2016 8:05 EDT ; Life Cycle Status: Active ; Responsible Provider: SANG RICO APR; Vocabulary: SNOMED CT Chronic anticoagulation (SNOMED CT :800820235 ) Name of Problem: Chronic anticoagulation ; Recorder: SANG RICO APR; Confirmation: Confirmed ; Classification: Medical ; Code: 703087189 ; Contributor System: PowerChart ; Last Updated: 04/10/2016 8:05 EDT ; Life Cycle Date: 04/10/2016 ; Life Cycle Status: Active ; Responsible Provider: SANG RICO APR; Vocabulary: SNOMED CT Clotting disorder (SNOMED CT :602908282 ) Name of Problem: Clotting disorder ; Recorder: KENYON CHAMBERS RN; Confirmation: Confirmed ; Classification: Patient Stated ; Code: 611018107 ; Contributor System: PowerChart ; Last Updated: 03/28/2014 19:29 EDT ; Life Cycle Date: 08/13/2013 ; Life Cycle Status: Active ; Vocabulary: SNOMED CT COPD (SNOMED CT :65890500 ) Name of Problem: COPD ; Recorder: KENYON CHAMBERS RN; Confirmation: Confirmed ; Classification: Medical ; Code: 88241984 ; Contributor System: PowerChart ; Last Updated: 04/10/2016 8:03 EDT ; Life Cycle Date: 08/13/2013 ; Life Cycle Status: Active ; Vocabulary: SNOMED CT Coronary artery disease (SNOMED CT :2971730917 ) Name of Problem: Coronary artery disease ; Recorder: KENYON CHAMBERS RN; Confirmation: Confirmed ; Classification: Medical ; Code: [id number] ; Contributor System: PowerChart ; Last Updated: 04/10/2016 8:03 EDT ; Life Cycle Date: 08/13/2013 ; Life Cycle Status: Active ; Vocabulary: SNOMED CT Diabetes mellitus (SNOMED CT :395824456 ) Name of Problem: Diabetes mellitus ; Recorder: KENYON CHAMBERS RN; Confirmation: Confirmed ; Classification: Medical ; Code: 279773959 ; Contributor System: PowerChart ; Last Updated: 04/10/2016 8:04 EDT ; Life Cycle Date: 08/13/2013 ; Life Cycle Status: Active ; Vocabulary: SNOMED CT Emphysema (SNOMED CT :968992262 ) Name of Problem: Emphysema ; Recorder: JUAN LUIS GIL RN; Confirmation: Confirmed ; Classification: Medical ; Code: 308422822 ; Contributor System: PowerChart ; Last Updated: 11/12/2014 10:11 EST ; Life Cycle Date: 11/12/2014 ; Life Cycle Status: Active ; Vocabulary: SNOMED CT GERD - Gastro-esophageal reflux disease (SNOMED CT :0814847217 ) Name of Problem: GERD - Gastro-esophageal reflux disease ; Recorder: KENYON CHAMBERS RN; Confirmation: Confirmed ; Classification: Medical ; Code: [id number] ; Contributor System: PowerChart ; Last Updated: [...] Patient Care High blood pressure (SNOMED CT :89033823 ) Name of Problem: High blood pressure ; Recorder: KENYON CHAMBERS RN; Confirmation: Confirmed ; Classification: Medical ; Code: 72876213 ; Contributor System: [employer] ; Last Updated: 04/10/2016 8:03 EDT ; Life Cycle Date: 08/13/2013 ; Life Cycle Status: Active ; Vocabulary: SNOMED CT Hx of pulmonary embolus (SNOMED CT :624271902 ) Name of Problem: Hx of pulmonary embolus ; Recorder: SANG RICO APR; Confirmation: Confirmed ; Classification: Medical ; Code: 382074802 ; Contributor System: PowerChart ; Last Updated: 04/10/2016 8:05 EDT ; Life Cycle Date: 04/10/2016 ; Life Cycle Status: Active ; Responsible Provider: SANG RICO APR; Vocabulary: SNOMED CT Hyperlipidemia (SNOMED CT :45300358 ) Name of Problem: Hyperlipidemia ; Recorder: KENYON CHAMBERS RN; Confirmation: Confirmed ; Classification: Medical ; Code: 01689986 ; Contributor System: PowerChart ; Last Updated: 04/10/2016 8:03 EDT ; Life Cycle Date: 08/13/2013 ; Life Cycle Status: Active ; Vocabulary: SNOMED CT Multiple renal cysts (SNOMED CT :588745126 ) Name of Problem: Multiple renal cysts ; Recorder: KENYON CHAMBERS RN; Confirmation: Confirmed ; Classification: Medical ; Code: 755926619 ; Contributor System: PowerChart ; Last Updated: 04/10/2016 8:04 EDT ; Life Cycle Date: 08/13/2013 ; Life Cycle Status: Active ; Vocabulary: SNOMED CT Stented coronary artery (SNOMED CT :0754473084 ) Name of Problem: Stented coronary artery ; Recorder: KENYON CHAMBERS RN; Confirmation: Confirmed ; Classification: Medical ; Code: 4270350938 ; Contributor System: PowerChart ; Last Updated: 04/10/2016 8:03 EDT ; Life Cycle Date: 08/13/2013 ; Life Cycle Status: Active ; Vocabulary: SNOMED CT UTI - Urinary tract infection (SNOMED CT :3949673056 ) Name of Problem: UTI - Urinary tract infection ; Recorder: KENYON CHAMBERS RN; Confirmation: Confirmed ; Classification: Medical ; Code: 6589426779 ; Contributor System: PowerChart ; Last Updated: 04/10/2016 8:04 EDT ; Life Cycle Date: 08/13/2013 ; Life Cycle Status: Active ; Vocabulary: SNOMED CT Diagnoses(Active) Chest pain Date: 12/12/2018 ; Diagnosis Type: Reason For Visit ; Confirmation: Complaint of ; Clinical Dx: Chest pain ; Classification: Medical ; Clinical Service: Emergency medicine ; Code: PNED ; Probability: 0 ; Diagnosis Code: [id number] ED Height and Weight Height Source : Stated Height Entry Format : [place] Height, Feet : 5 ft(Converted to: 152 cm, 60 Inch) Height, Inches : 3 Inch(Converted to: 0 ft 3 Inch, 7.62 cm) Clinical Height : 160.02 cm Weight Source, ED : Standing scale Weight Entry Format : [place] Weight, Pounds : 161.7 lb Clinical Dosing Weight : 73.5 kg Body Surface Area (BSA) : 1.77 m2 Body Mass Index : 28.7 kg/m2 (HI) [place] Body Weight (IBW) : 52.02 kg LUCINDA FOFANA RN - 12/12/2018 21:18 EST Electronically signed by Sivan, [facility] Conversion Bad Credit Collector Cerner at 02/04/2023 1:58 PM CDT documented in this encounter Plan of Treatment Not on file documented as of this encounter Visit Diagnoses Not on filedocumented in this encounter Care Teams Culinary Art Teacher Relationship Specialty Start Date End Date Jay Howell MD [address] [place] [phone] PCP - General Emergency Medicine 11/12/23 documented as of this encounter
--- OUTSIDE RECORDS SUMMARY | 2025-07-12 08:52 | XMS_ITS | Encounter Summary ---
Author Organization [employer] ([place], [place], [place], [place]) Address [address] [place] [address] Care Team Providers Care Data Collection Technician Name Role Phone Jay Howell MD Primary Care Provider [phone] Encounter Details Date Type Department Care Team (Late st Contact Info) Description 08/29/2020 Transcribed Document [facility] [place] Family Medicine [address] [place] [address] ProviderJessie MD [address] [place], [place] [id number] Social History Tobacco Use Types Packs/Day Years Used Date Smoking Tobacco: Never Assessed Comments Unknown Sex and Gender Information Value Date Recorded Sex Assigned at Not on file Legal Sex Female 7:30 PM CDT Gender Identity Not on file Sexual Orientation Not on file documented as of this encounter Miscellaneous Notes * [employer]ner Conversion Note - Jessie ProviderMD - 08/29/2020 1:45 PM WELFARE OFFICER RX Interventions Entered On: 08/29/2020 15:05 EST Performed On: 08/29/2020 15:03 EST by SLICK BRADLEY [facility] Clinical Interventions Clarify Drug Order : Yes SLICK BRADLEY RP - 08/29/2020 15:03 EST Clarify Drug Order Clarify Drug Order, Order : aprin gtt as bridge therapy. S/W Leti, wt 69kg (rounded to 70kg) NO bolus per attending. Start heparin gtt at 12.6ml/h Clarify Drug Order, Value : 0 Dollar Clarify Drug Order, Time : 10 Minute(s) SLICK BRADLEY, [facility] - 08/29/2020 15:03 EST Electronically signed by [facility], [facility] Conversion Promotions Team Leader Cerner at 02/04/2023 2:17 PM CDT documented in this encounter Plan of Treatment Not on file documented as of this encounter Visit Diagnoses Not on filedocumented in this encounter Care Teams Data Collection Technician Relationship Specialty Start Date End Date Jay Howell MD [address] [place] [phone] PCP - General Emergency Medicine 11/12/23 documented as of this encounter
--- OUTSIDE RECORDS SUMMARY | 2025-07-12 08:52 | XMS_ITS | Encounter Summary ---
Author Organization [employer] ([place], [place], [place], [place]) Address [address] [place] [address] Care Team Providers Care Tool Room Lathe Operator Name Role Phone Jay Howell MD Primary Care Provider [phone] Encounter Details Date Type Department Care Team (Late st Contact Info) Description 12/12/2018 Transcribed Document [facility] Family Medicine [address] [place] [address] ProviderJessie MD [address] [place], [place] [id number] Social History Tobacco Use Types Packs/Day Years Used Date Smoking Tobacco: Never Assessed Comments Unknown Sex and Gender Information Value Date Recorded Sex Assigned at Not on file Legal Sex Female 7:30 PM CDT Gender Identity Not on file Sexual Orientation Not on file documented as of this encounter Miscellaneous Notes * Cerner Conversion Note - Jessie ProviderMD - 12/12/2018 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 [address] [place] [address] Patient Information Name: SKYLER MONTOYA Age: 77 Years Date of : 1940 Arrival Time: 12/12/2018 20:58:00 Diagnosis Chest pain Primary Care Physician: TARA CHEN (REF), -MED Provider Information Primary Provider: ANGIE TEIXEIRA Secondary Provider: SKYLER MONTOYA has been given the following list of patient education materials, prescriptions and follow-up instructions: Follow-up Instructions: With: Address: When: [facility] Within 2 to 3 days Comments: For further assistance with your Primary Care Physician please contact the Patient Resource Center at [phone]. With: Address: When: Follow-up with your bridge engineer in the morning. Return to the closest emergency department for any acute new concerns or recurrence of symptoms. Within in AM With: Address: When: TARA CHEN [address] [place] [address] DR HUTCHINSON, [place] [address] [facility] (1) Within 2 to 3 days Patient Education Materials: Angina Pectoris Angina pectoris, often called angina, is extreme discomfort in the chest, neck, or arm. This is caused by a lack of blood in the middle and thickest layer of the heart wall (myocardium). There are four types of angina: ??? Stable angina. Stable angina usually occurs in episodes of predictable frequency and duration. It is usually brought on by physical activity, stress, or excitement. Stable angina usually lasts a few minutes and can often be relieved by a medicine that you place under your tongue. This medicine is called sublingual nitroglycerin. ??? Unstable angina. Unstable angina can occur even when you are doing little or no physical activity. It can even occur while you are sleeping or when you are at rest. It can suddenly increase in severity or frequency. It may not be relieved by sublingual nitroglycerin, and it can last up to 30 minutes. ??? Microvascular angina. This type of angina is caused by a disorder of tiny blood vessels called arterioles. Microvascular angina is more common in women. The pain may be more severe and last longer than other types of angina pectoris. ??? Prinzmetal or variant angina. This type of angina pectoris is rare and usually occurs when you are doing little or no physical activity. It especially occurs in the steam shovel oiler hours. What are the causes? Atherosclerosis is the cause of angina. This is the buildup of fat and cholesterol (plaque) on the inside of the arteries. Over time, the plaque may narrow or block the artery, and this will lessen blood flow to the heart. Plaque can also become weak and break off within a coronary artery to form a clot and cause a sudden blockage. What increases the risk? Risk factors common to both men and women include: ??? High cholesterol levels. ??? High blood pressure (hypertension). ??? Tobacco use. ??? Diabetes. ??? Family history of angina. ??? Obesity. ??? Lack of exercise. ??? A diet high in saturated fats. Women are at greater risk for angina if they are: ??? Over age 55. ??? Postmenopausal. What are the signs or symptoms? Many people do not experience any symptoms during the early stages of angina. As the condition progresses, symptoms common to both men and women may include: ??? Chest pain. ? The pain can be described as a crushing or squeezing in the chest, or a tightness, pressure, fullness, or heaviness in the chest. ? The pain can last more than a few minutes, or it can stop and recur. ??? Pain in the arms, neck, jaw, or back. ??? Unexplained heartburn or indigestion. ??? Shortness of breath. ??? Nausea. ??? Sudden cold sweats. ??? Sudden light-headedness. Many women have chest discomfort and some of the other symptoms. However, women often have different (atypical) symptoms, such as: ??? Fatigue. ??? Unexplained feelings of nervousness or anxiety. ??? Unexplained weakness. ??? Dizziness or fainting. Sometimes, women may have angina without any symptoms. How is this diagnosed? Tests to diagnose angina may include: ??? ECG (electrocardiogram). ??? Exercise [...] How is this treated? The treatment of angina may include the following: ??? Healthy behavioral [...] liquor. ??? Stop illegal drug use. ??? Keep all follow-up visits as directed by your health care provider. This is important. Get help right away if: ??? You have pain in your chest, neck, arm, jaw, stomach, or back that lasts more than a few minutes, is recurring, or is unrelieved by taking sublingual?nitroglycerin. ??? You have profuse sweating without cause. [...] care provider. Document Released: 10/03/2006 Document Revised: 03/16/2017 Document Reviewed: 02/04/2015 [employer] Patient Education ? 2017 [employer] Allergies: Macrodantin; morphine; nitrofurantoin Medication Information: Laboratory or Other Results This Visit (last charted value for your 12/12/2018 visit) Hematology 12/12/18 21:23:00 WBC: 6.1 K/uL -- Normal range between ( 4.5 and 10.5 ) RBC: 3.90 Million/uL -- Normal range between ( 3.93 and 5.22 ) Hct: 36.2 % -- Normal range between ( 34.1 and 44.9 ) Hgb: 12.0 g/dL -- Normal range between ( 11.2 and 15.7 ) Platelet Count: 165 K/uL -- Normal range between ( 163 and 369 ) MCH: 30.8 pg -- Normal range between ( 25.6 and 32.2 ) MCHC: 33.1 Gram/dL -- Normal range between ( 32.2 and 36.5 ) MCV: 92.8 fL -- Normal range between ( 79.0 and 94.8 ) Slide Review: No Eos %: 0.0 % -- Normal range between ( 0.0 and 7.0 ) Monroe #: 0.65 K/uL -- Normal range between ( 0.16 and 1.00 ) Eos #: 0.00 x10(3)/uL -- Normal range between ( 0.00 and 0.80 ) Monroe %: 10.7 % -- Normal range between ( 3.0 and 9.0 ) Baso %: 0.5 % -- Normal range between ( 0.0 and 1.5 ) Baso #: 0.03 x10(3)/uL -- Normal range between ( 0.00 and 0.20 ) RDW: 13.3 % -- Normal range between ( 11.7 and 14.9 ) Neut %: 52.1 % -- Normal range between ( 34.0 and 71.0 ) Neut #: 3.18 K/uL -- Normal range between ( 1.56 and 6.13 ) Lymph %: 36.4 % -- Normal range between ( 19.3 and 53.1 ) Lymph #: 2.22 x10(3)/uL -- Normal range between ( 1.00 and 3.90 ) MPV: 9.6 fL -- Normal range between ( 9.4 and 12.4 ) IG#: 0.02 x10(3)/uL -- Normal range between ( 0.00 and 0.05 ) IG%: 0.30 % -- Normal range between ( 0.00 and 0.60 ) General Chemistry 12/12/18 21:23:00 Creatinine Level: 0.80 mg/dL -- Normal range between ( 0.55 and 1.02 ) Sodium Level: 144 mmol/L -- Normal range between ( 136 and 146 ) Potassium Level: 4.0 mmol/L -- Normal range between ( 3.5 and 5.1 ) Chloride Level: 110 mmol/L -- Normal range between ( 102 and 112 ) Carbon Dioxide Level: 24 mmol/L -- Normal range between ( 21 and 32 ) Anion Gap: 14 -- Normal range between ( 9 and 20 ) Bilirubin Total: 0.3 mg/dL -- Normal range between ( 0.2 and 1.2 ) A/G Ratio: 1.0 -- Normal range between ( 1.1 and 2.5 ) ALT: 30 Units/Liter -- Normal range between ( 13 and 56 ) AST: 23 Units/Liter -- Normal range between ( 5 and 37 ) Globulin: 3.9 Gram/dL -- Normal range between ( 1.5 and 4.5 ) Alk Phos: 73 Units/Liter -- Normal range between ( 27 and 136 ) Bun/Creatinine: 18.8 -- Normal range between ( 8.0 and 20.0 ) Calcium Level: 9.1 mg/dL -- Normal range between ( 8.4 and 10.1 ) eGFR : >60 mL/min/1.73m2 eGFR NonAfrican: >60 mL/min/1.73m2 Glucose Level: 143 mg/dL -- Normal range between ( 74 and 106 ) Blood Urea Nitrogen: 15 mg/dL -- Normal range between ( 7 and 22 ) Protein Total: 7.9 Gram/dL -- Normal range between ( 6.4 and 8.2 ) Albumin Level: 4.0 Gram/dL -- Normal range between ( 3.4 and 5.0 ) Cardiac Specific Markers 12/12/18 21:23:00 Troponin I Ultra: <0.015 ng/mL -- Normal range between ( 0.015 and 0.045 ) Coagulation 12/12/18 21:23:00 INR: 2.4 -- Normal range between ( 0.9 and 1.1 ) PT: 25.3 Second(s) -- Normal range between ( 9.6 and 12.0 ) Medication Comment: Procedures: Laboratory Orders Name Status AutoDiff Completed CBCD Completed CMP Completed PT Completed TROPIULT Completed Radiology Orders Name Status CR Chest 2 Vws Ordered Cardiology Orders Name Status ECG Ordered This statement is to verify that SKYLER MONTOYA was seen at [facility] Emergency Department on ,12/12/2018 22:41:24. This is not a work excuse, if a work excuse was needed it will be in addition to this statement as a separate form. IMPORTANT: The examination and treatment you have received [...] that requires the expertise of a specialist. KEEP IN MIND THAT THE SPECIALIST HAS HIS/HER OWN OFFICE POLICIES WHICH MAY REQUIRE PROPER INSURANCE OR PAYMENT UP FRONT BEFORE THE SPECIALIST WILL SEE YOU. It is your responsibility to call the specialist physician to make an appointment. We do not have the ability to identify specialists/physicians that work with specific insurance companies. [...] necessary to obtain coverage for claims submitted. If you had special tests, such as EKG???s or X-rays, the interpretation of your tests given to you by the Emergency Dept. Physician is a preliminary report. Some fractures and illnesses fail to show up on preliminary tests. We will review them again within 24-48 hours. We will call you if there are any new suggestions. If your symptoms continue notify your physician. After you leave, you should follow the instructions below. In all events, you may obtain a copy of your Emergency Department visit from Medical Records. Please call to be directed to this department. We will bill your insurance; however, you are responsible today for any co-pay amounts. You will receive a separate bill for any services you may have received including: emergency, radiology, or pathology physicians. Please be sure we have an accurate contact phone number and address, should we need to call you for any reason. CIGARETTE SMOKING: The facts are clear; cigarette smoking will shorten your life. Smoking can cause many illnesses along the way. As a healthcare provider, [facility] recommends that you stop smoking. Assistance with quitting is available by contacting 8-377-KCTM-NOW. This is a free resource providing counseling, support, and referral. Or you may contact your personal physician. As part of your treatment plan, [...] cramping, rapid heartbeat, difficulty sleeping, and nervousness. The home medications listed are only as accurate as the information you provided. Please continue taking all of your medications prescribed by your Primary Care Provider unless specifically told to change or discontinue the medication. Please direct any questions regarding your home medications to your Primary Care Provider. YOU ARE THE MOST IMPORTANT FACTOR IN YOUR RECOVERY. ?? Follow your instructions carefully ?? Take your medicines as prescribed ?? Most important, see a provider as discussed. If you do not have a provider, we can provide a list of clinics Confidential This message and accompanying documents are covered by Electronic Communications Privacy Act 18 U.S.C. ???Sections 7206-0517,?? and contain information intended for the specified individual(s) only. This information is confidential. If you are not the intended recipient or an agent responsible for delivering it to the intended recipient, you are hereby notified that you have received the document in error and that any review, dissemination, copying, or the taking of any action based on the contents of this information is strictly prohibited. If you have received this communication in error, please notify us immediately by email, and delete the original message. 4 WAYS TO GET AHEAD OF SEPSIS [...] Fibrillation (irregular heartbeat) Family history of stroke Acknowledgment I hereby acknowledge receipt of these instructions and information above. I understand that I have received Emergency Treatment only which is not a substitute for complete medical care and acknowledge that all of my medical problems may not be known, identified, or treated prior to my release. I UNDERSTAND THE NEED TO ARRANGE FOLLOW-UP CARE WITH THE PHYSICIAN INDICATED. I UNDERSTAND THAT I SHOULD CONTACT MY PHYSICIAN IMMEDIATELY OR RETURN TO THE EMERGENCY DEPARTMENT IF MY CONDITION WORSENS, FAILS TO IMPROVE, OR NEW SYMPTOMS APPEAR. Vital Signs B/P PULSE RESP. RATE TEMPERATURE PULSE OX Signature of Emergency Provider Date / Time Signature of Emergency Nurse Date / Time Reminder: Be sure to sign up for the [facility] patient portal, which gives you 09/05 access to your medical information ??? including these discharge instructions ??? using your computer, smartphone, or tablet. Just go to [employer] to get started. Questions? Call . Acknowledgment I hereby acknowledge receipt of these instructions and information above. I understand that I have received Emergency Treatment only which is not a substitute for complete medical care and acknowledge that all of my medical problems may not be known, identified, or treated prior to my release. I UNDERSTAND THE NEED TO ARRANGE FOLLOW-UP CARE WITH THE PHYSICIAN INDICATED. I UNDERSTAND THAT I SHOULD CONTACT MY PHYSICIAN IMMEDIATELY OR RETURN TO THE EMERGENCY DEPARTMENT IF MY CONDITION WORSENS, FAILS TO IMPROVE, OR NEW SYMPTOMS APPEAR. Signature of Patient / Responsible Person Date / Time Please provide a telephone number where you can be reached. The best time to call is between: It is permissable to leave a message if no answer: Yes____ No____ Nurse Providing Instructions: Emergency Physician: Electronically signed by Sivan, [facility] Conversion Internal Controls Analyst Cerner at 02/04/2023 1:56 PM CDT documented in this encounter Plan of Treatment Not on file documented as of this encounter Visit Diagnoses Not on filedocumented in this encounter Care Teams Tool Room Lathe Operator Relationship Specialty Start Date End Date Jay Howell MD [address] [place] [phone] PCP - General Emergency Medicine 11/12/23 documented as of this encounter
--- OUTSIDE RECORDS SUMMARY | 2025-07-12 08:52 | XMS_ITS | Encounter Summary ---
Author Organization [employer] ([place], [place], [place], [place]) Address [address] [place] [address] Care Team Providers Care Pilates Coordinator Name Role Phone Jay Howell MD Primary Care Provider [phone] Encounter Details Date Type Department Care Team (Late st Contact Info) Description 09/01/2020 Transcribed Document [facility] [place] Family Medicine [address] [place] [address] ProviderJessie MD [address] [place] [address] Social History Tobacco Use Types Packs/Day Years Used Date Smoking Tobacco: Never Assessed Comments Unknown Sex and Gender Information Value Date Recorded Sex Assigned at Not on file Legal Sex Female 7:30 PM CDT Gender Identity Not on file Sexual Orientation Not on file documented as of this encounter Miscellaneous Notes * Cerner Conversion Note - Jessie Yuen MD - 09/01/2020 2:22 PM SPORTS MEDICINE COORDINATOR [facility] [place] [id number] SKYLER MONTOYA :1940 Visit Time:08/25/2020 Your Visit Summary Your Care Team Admitting Physician - BETH DAVALOS MD-INT Attending Physician - SARAH CONTEH MD Primary Care Physician - TARA CHEN (REF), -MED Referring Physician - LO HALE MD-EMR Your Diagnosis Cellulitis of leg Cutaneous abscess, unspecified, Cutaneous abscess, unspecified General medical Hematoma of left lower leg Medical screening exam Discharge Vitals Temperature 36.7 ??C Heart Rate (Monitored) 68 Blood Pressure 129/47 What to do next Instructions From Your Care Team Diet after Discharge: Resume usual diet as tolerated Activity after Discharge: As tolerated Driving after Discharge: Do not drive Showering/Bathing: No tub bathing, soaking or swimming, Cover Wound VAC with plastic wrap prior to showering Notify Provider of: Pain that cannot be controlled by pain medications or falls. Wound/Incision Care after Discharge: Home Health to change wound vac Community Services: Home Health Services: WED-- ///after hours & weekends-- Medical Equipment for Home Use: ROTECH--wound vac STOP the following medications: STOP Aspirin STOP Clindamycin STOP Bactroban Ointment STOP Hydralazine 10 mg tablets ---- Dose increased and NEW RX Provided STOP Warfarin 2 mg tablets --- Dose changed to 3 mg daily x next 5 days. NEW RX Provided. STOP Park Ridge 7.5/325 mg tablets --- NEW RX Provided for 5/325 mg tablets --- Take one or the other - Do not take both. Discharge Activity: Discharge Activity: No heavy lifting over 10 lbs, Avoid Strenuous Activity Until: for 1 week Follow-Up Appointments Follow Up with KAELA VERDE When 09/29/2020 12:30 PM EST Comments F/u w/ FERNIE Where: [place] [address] [place] [id number]- Business (1) Follow Up with KAELA VERDE When 09/08/2020 12:45 PM EST Comments F/u [facility] with Irina Troy PA-C Where: [facility] [address] [place] [address]- Business (1) Follow Up with TARA CHEN When 09/05/2020 12:20 PM EST Comments needs INR check///We have held your Aspirin per vascular surgeon, Dr. Verde///Appointment has been made Where: [address] [address]- Business (1) Follow Up with KAVITHA HIDALGO When 09/03/2020 02:30 PM EST Comments Appointment has been made Where: [address] [place] [address]- Business (1) Medications What How Much When Instructions Next Dose amoxicillin-clavulanate (amoxicillin-clavulanate 875 mg-125 mg oral tablet) 1 Tablet(s) Oral Every 12 hours Duration: 3 Day(s) Pickup at [facility] [place] Tuesday09/01/2020 9:00 PM clopidogrel (Plavix 75 mg oral tablet) 1 Tablet(s) Oral Every Day Pickup at [facility] [place] Tuesday09/02/2020 9:00 AM doxycycline (Vibramycin 100 mg oral capsule) 1 Capsule(s) Oral Two Times A Day Duration: 3 Day(s) [place] [facility] [place] Tuesday09/01/2020 9:00 PM enoxaparin (Lovenox 80 mg/ 0.8 mL injectable solution) 70 Milligram(s) SubCutaneous Every 12 hours Duration: 5 Day(s) Pickup at [facility] [place] Tuesday09/01/2020 9:00 PM lactobacillus acidophilus (lactobacillus acidophilus oral tablet) 2 Tablet(s) Oral Every Day Duration: 28 Day(s) [place] [facility] [place] Tuesday09/02/2020 9:00 AM terbinafine (terbinafine 250 mg oral tablet) 1 Tablet(s) Oral Every Day Duration: 6 weeks Pick[place] [facility] [place] 09/02/2020 9:00 AM ALPRAZolam (Xanax 0.5 mg oral tablet) 1 Tablet(s) Oral At Bedtime as needed for for anxiety/sleep acetaminophen-hydrocodone (Park Ridge 5 mg-325 mg oral tablet) 1 Tablet(s) Oral Every 4 Hours as needed for for pain NEW DOSE. New RX Provided. amLODIPine (Norvasc 10 mg oral tablet) 1 Tablet(s) Oral Every Day Pickup at [facility] [place] Tuesday09/02/2020 9:00 AM atorvastatin (atorvastatin 80 mg oral tablet) 1 Tablet(s) Oral At Bedtime Pickup at [facility] [place] Tuesday09/01/2020 9:00 PM carvedilol (carvedilol 6.25 mg oral tablet) 1 Tablet(s) Oral Three Times A Day Tuesday09/01/2020 4:00 PM dorzolamide ophthalmic (dorzolamide 2% ophthalmic solution) 1 Drop(s) Eye Right Two Times A Day Tuesday09/01/2020 9:00 PM hydrALAZINE (hydrALAZINE 100 mg oral tablet) 1 Tablet(s) Oral Two Times A Day NEW DOSE [place] [facility] Tuesday09/01/2020 9:00 PM warfarin (Coumadin 3 mg oral tablet) 1 Tablet(s) Oral Every Day Duration: 5 Day(s) NEW DOSE x the next 5 days. INR will be checked in 2 days. Pickup [place] [facility] [place] Tuesday09/02/2020 9:00 AM losartan (losartan 100 mg oral tablet) 1 Tablet(s) Oral Every Day Tuesday09/02/2020 9:00 AM metFORMIN (metFORMIN 500 mg oral tablet, extended release) 1 Tablet(s) Oral Twice a Day With Meals Tuesday09/01/2020 5:00 PM multivitamin (Multiple Vitamins oral tablet) 1 Tablet(s) Oral Every Day Tuesday09/02/2020 9:00 AM omeprazole (omeprazole 40 mg oral delayed release capsule) 1 Capsule(s) Oral Every Day Tuesday09/02/2020 9:00 AM ranolazine (Ranexa 500 mg oral tablet, extended release) 2 Tablet(s) Oral Two Times A Day Tuesday09/01/2020 9:00 PM Pharmacy Information [facility] [place]: [address] [facility] [address] [place], [place] [id number] [phone] Take your medications faithfully. Do NOT skip [...] This Visit No Immunizations Found Education Materials Negative Pressure Wound Therapy Home Guide Negative [...] bag. ??? Soap and water, or hand chiropractic physician. ??? Wound cleanser or salt-water solution (saline). [...] and water are not available, use hand chiropractic physician. 3. Set up a clean station for [...] and water are not available, use hand chiropractic physician. Clean your wound ??? Wear gloves, protective [...] and water are not available, use hand chiropractic physician. Apply new dressing ??? Wear gloves, protective [...] and water are not available, use hand chiropractic physician. 8. Turn the pump back on. The sponge dressing should collapse. Do not change the settings on the machine without talking to a health care provider. 9. Replace the container in the pump that collects fluid if it is full. Replace the container per the health counselor's instructions or at least once a week, [...] clamps are open. ??? Do not use yhzu-crt-qcrlhbg medicated or antiseptic creams, sprays, liquids, or [...] 12/25/2012 Document Revised: 01/25/2020 Document Reviewed: 12/21/2019 [employer] Patient Education ?? 2020 [employer] Cellulitis, Adult Cellulitis is a skin infection. [...] these instructions at home: Medicines ??? Take xzyl-qog-emmoixp and prescription medicines only as told by [...] do not start to get better after 1???2 days of treatment. ??? Your bone or [...] do not start to get better after 1???2 days of treatment. This information is not intended to replace advice given to you by your health care provider. Make sure you discuss any questions you have with your health care provider. Document Released: 03/21/2009 Document Revised: 02/22/2019 Document Reviewed: 02/22/2019 [employer] Patient Education ?? 2020 [employer] What You Need to Know About Warfarin [...] your INR checked at least once every 4???6 weeks for the entire time you are [...] of beer, 5 oz of wine, or 1?? oz of hard liquor. ? If you [...] other medicines or supplements? Many prescription and qgpe-wvz-ymhzgen medicines can interfere with warfarin. Talk with your health care provider or your pharmacist before starting or stopping any new medicines. This includes ocvq-soa-ejkovrp vitamins, dietary supplements, herbal medicines, and pain medicines. Your warfarin dosage may need to be adjusted. ??? Some common lbki-hqm-trknvtz medicines that may increase the risk of [...] that you work with a diet and forestry biology specialist (dietitian). ??? Vitamin K decreases the effect [...] cooked. ??? Collards, raw or cooked. ??? Chilean chard, raw or cooked. ??? Mustard greens, raw or cooked. ??? Turnip greens, raw or cooked. ??? Parsley, raw. ??? Broccoli, cooked. ??? Noodles, eggs, and spinach, enriched. ??? Orland sprouts, raw or cooked. ??? Beet greens, raw or cooked. ??? Endive, raw. ??? Cabbage, cooked. ??? Asparagus, cooked. Foods that contain moderate amounts of vitamin K include: ??? Broccoli, raw. ??? Cabbage, raw. ??? Bok bijan, cooked. ??? Green leaf lettuce, raw ??? Prunes, stewed. ??? Pickles. ??? Kiwi. ??? Edamame, cooked. ??? Lang lettuce, raw. ??? Avocado. ??? Tuna, canned [...] diet. ??? You start or stop any kteg-yek-qrzlowe medicine, prescription medicine, or dietary supplement. ??? [...] 10/03/2006 Document Revised: 05/16/2018 Document Reviewed: 12/29/2016 [employer] Patient Education ?? 2020 [employer]. Hematoma A hematoma is a collection of [...] speaking or understanding, or a change in consciousness. How is this diagnosed? This condition is [...] on for 20 minutes, 2???3 times a day for the first couple [...] health care provider. General instructions ??? Take asbm-qrv-fxjrbxv and prescription medicines only as told by [...] 05/17/2005 Document Revised: 03/08/2019 Document Reviewed: 03/08/2019 Elsevier Patient Education ?? 2020 [employer] Inc. Emergency Awareness and Preventative Care STROKE [...] Assistance with quitting is available by contacting 5-898-RUZI-NOW. This is a free resource providing counseling, support, and referral. Or you may contact your personal physician. [employer] Suicide Prevention Lifeline: The National Suicide Prevention [...] This Visit (last charted value for your 08/25/2020 visit) Hematology 09/01/2020 4:06 AM WBC: 6.0 K/uL -- Normal range between ( 4.5 and 10.5 ) RBC: 3.43 Million/uL -- Normal range between ( 3.93 and 5.22 ) Hct: 33.3 % -- Normal range between ( 34.1 and 44.9 ) Hgb: 10.9 g/dL -- Normal range between ( 11.2 and 15.7 ) Platelet Count: 166 K/uL -- Normal range between ( 163 and 369 ) MCH: 31.8 pg -- Normal range between ( 25.6 and 32.2 ) MCHC: 32.7 Gram/dL -- Normal range between ( 32.2 and 36.5 ) MCV: 97.1 fL -- Normal range between ( 79.0 and 94.8 ) Slide Review: No Eos %: 1.8 % -- Normal range between ( 0.0 and 7.0 ) Newton #: 0.64 K/uL -- Normal range between ( 0.16 and 1.00 ) Eos #: 0.11 x10(3)/uL -- Normal range between ( 0.00 and 0.80 ) Newton %: 10.7 % -- Normal range between ( 3.0 and 9.0 ) Baso %: 0.3 % -- Normal range between ( 0.0 and 1.5 ) Baso #: 0.02 x10(3)/uL -- Normal range between ( 0.00 and 0.20 ) RDW: 14.2 % -- Normal range between ( 11.7 and 14.9 ) Neut %: 49.2 % -- Normal range between ( 34.0 and 71.0 ) Neut #: 2.95 K/uL -- Normal range between ( 1.56 and 6.13 ) Lymph %: 37.5 % -- Normal range between ( 19.3 and 53.1 ) Lymph #: 2.25 x10(3)/uL -- Normal range between ( 1.00 and 3.90 ) MPV: 9.5 fL -- Normal range between ( 9.4 and 12.4 ) IG#: 0.03 x10(3)/uL -- Normal range between ( 0.00 and 0.05 ) IG%: 0.50 % -- Normal range between ( 0.00 and 0.60 ) 08/28/2020 3:49 AM nRBC: 0.020 -- Normal range between ( 0.000 and 0.012 ) Microbiology 08/26/2020 1:57 PM Anaerobic Culture: See Result Wound Culture: See Result 08/25/2020 12:30 PM Novel Coronavirus 2019: Negative 08/25/2020 5:06 AM Blood Culture: See Result General Chemistry 09/01/2020 5:16 AM Glucose POC2: 139 mg/dL -- Normal range between ( 70 and 110 ) Device Comment 1: Device Comment 1 08/30/2020 3:43 AM Potassium Level: 3.8 mmol/L -- Normal range between ( 3.5 and 5.1 ) 08/29/2020 1:38 AM Creatinine Level: 0.70 mg/dL -- Normal range between ( 0.55 and 1.02 ) Sodium Level: 138 mmol/L -- Normal range between ( 136 and 146 ) Chloride Level: 108 mmol/L -- Normal range between ( 102 and 112 ) Carbon Dioxide Level: 23 mmol/L -- Normal range between ( 21 and 32 ) Anion Gap: 10 -- Normal range between ( 9 and 20 ) Bun/Creatinine: 22.9 -- Normal range between ( 8.0 and 20.0 ) Calcium Level: 9.1 mg/dL -- Normal range between ( 8.4 and 10.1 ) eGFR : >60 mL/min/1.73m2 eGFR NonAfrican: >60 mL/min/1.73m2 Glucose Level: 108 mg/dL -- Normal range between ( 74 and 106 ) Blood Urea Nitrogen: 16 mg/dL -- Normal range between ( 7 and 22 ) 08/26/2020 11:45 AM Device Comment 2: Device Comment 2 08/26/2020 3:53 AM Hgb A1C: 6.4 % eAVG Glucose: 137 mg/dL 08/25/2020 12:30 PM Lactic Acid Level: 1.8 mmol/L -- Normal range between ( 0.4 and 2.0 ) 08/25/2020 5:06 AM Bilirubin Total: 0.9 mg/dL -- Normal range between ( 0.2 and 1.2 ) A/G Ratio: 1.0 -- Normal range between ( 1.1 and 2.5 ) ALT: 32 Units/Liter -- Normal range between ( 13 and 56 ) AST: 29 Units/Liter -- Normal range between ( 5 and 37 ) Globulin: 4.1 Gram/dL -- Normal range between ( 1.5 and 4.5 ) Alk Phos: 63 Units/Liter -- Normal range between ( 27 and 136 ) Protein Total: 8.1 Gram/dL -- Normal range between ( 6.4 and 8.2 ) Albumin Level: 4.0 Gram/dL -- Normal range between ( 3.4 and 5.0 ) Cardiac Specific Markers 08/29/2020 1:38 AM CKMB: CKMB CK MB: 1.60 ng/mL -- Normal range between ( 0.50 and 3.60 ) 08/28/2020 4:50 PM CK: 86 Units/Liter -- Normal range between ( 26 and 192 ) 08/28/2020 1:50 PM Troponin I Ultra: <0.015 ng/mL -- Normal range between ( 0.015 and 0.045 ) Coagulation 09/01/2020 10:08 AM PTT Heparin: 60.6 Second(s) -- Normal range between ( 50.0 and 75.0 ) 09/01/2020 4:06 AM INR: 1.4 -- Normal range between ( 0.9 and 1.1 ) PT: 14.6 Second(s) -- Normal range between ( 9.6 and 12.0 ) Endocrinology 08/25/2020 5:06 AM Procalcitonin: <0.25 ng/mL -- Normal range between ( 0.00 and 2.00 ) Computed Tomography 08/27/2020 6:[address] Abdomen WO W: CT Abdomen WO W Diagnostic Radiology 08/25/2020 6:32 AM CR Chest 1 Vw Portable: CR Chest 1 Vw Portable Magnetic Resonance Imaging 08/25/2020 3:21 PM MRI Spine Lumbar WO: MRI Spine Lumbar WO Vascular Ultrasound 08/25/2020 11:40 AM VL ART LE Duplex BILAT: VL ART LE Duplex BILAT 08/25/2020 11:29 AM VL FERNIE Ankle Brachial Index BILAT: VL FERNIE Ankle Brachial Index BILAT Patient Name:SKYLER MONTOYA I have received and understand this information and was given the opportunity to ask questions. Patient/Hvac R Instructor Name: Patient/Hvac R Instructor Signature: Relationship to Patient: Clinician/Hospital Hvac R Instructor Signature: Date: Electronically signed by Sivan, [facility] Conversion Behavior Clinician Cerner at 02/04/2023 2:00 PM CDT documented in this encounter Plan of Treatment Not on file documented as of this encounter Visit Diagnoses Not on filedocumented in this encounter Care Teams Pilates Coordinator Relationship Specialty Start Date End Date Jay Howell MD [address] [place] [phone] PCP - General Emergency Medicine 11/12/23 documented as of this encounter
--- OUTSIDE RECORDS SUMMARY | 2025-07-12 08:52 | XMS_ITS | Encounter Summary ---
Author Organization [employer] ([place], [place], [place], [place]) Address [address] [place] [address] Care Team Providers Care Rest Room Attendant Name Role Phone Jay Howell MD Primary Care Provider [phone] Encounter Details Date Type Department Care Team (Late st Contact Info) Description 12/21/2018 Transcribed Document [facility] [place] [address] [place] [address] ProviderJessie MD [address] [place] [address] Social History Tobacco Use Types Packs/Day Years Used Date Smoking Tobacco: Never Assessed Comments Unknown Sex and Gender Information Value Date Recorded Sex Assigned at Not on file Legal Sex Female 7:30 PM CDT Gender Identity Not on file Sexual Orientation Not on file documented as of this encounter Miscellaneous Notes * Cerner Conversion Note - Historical ProviderMD - 12/21/2018 9:20 AM SPRINKLER IRRIGATION EQUIPMENT MECHANIC Spiritual Care Short Form Entered On: 12/21/2018 22:31 EST Performed On: 12/21/2018 9:20 EST by JAZZ PINA Chaplain-Non Cert General Information, Spiritual Care Spiritual Care Referred by : Kitchen Worker initiated Reason for Visit : Initial Ministry Provided to : Patient Intervention/Comment/Summary Points : Visited conducted by Spiritual Private Eye shilo Velasquez Yarsani Preference : Tenriism JAZZ PINA Chaplain-Magalis Del Castillo - 12/21/2018 22:31 EST Electronically signed by Gayle Finnegan Conversion Senior Database Administrator Cerner at 02/04/2023 2:00 PM CDT documented in this encounter Plan of Treatment Not on file documented as of this encounter Visit Diagnoses Not on filedocumented in this encounter Care Teams Rest Room Attendant Relationship Specialty Start Date End Date Jay Howell MD [address] [place] [phone] PCP - General Emergency Medicine 11/12/23 documented as of this encounter
--- OUTSIDE RECORDS SUMMARY | 2025-07-12 08:52 | XMS_ITS | Encounter Summary ---
Author Organization [employer] ([place], [place], [place], [place]) Address [address] [place] [address] Care Team Providers Care Brokerage Coordinator Name Role Phone Jay Howell MD Primary Care Provider [phone] Encounter Details Date Type Department Care Team (Late st Contact Info) Description 09/04/2020 Transcribed Document [facility] [place] [address] [place] [address] ProviderJessie MD [address] [place] [address] Social History Tobacco Use Types Packs/Day Years Used Date Smoking Tobacco: Never Assessed Comments Unknown Sex and Gender Information Value Date Recorded Sex Assigned at Not on file Legal Sex Female 7:30 PM CDT Gender Identity Not on file Sexual Orientation Not on file documented as of this encounter Miscellaneous Notes * Cerner Conversion Note - Historical ProviderMD - 09/04/2020 4:13 AM AUTHOR ED Event Note Entered On: 09/04/2020 4:13 EST Performed On: 09/04/2020 4:13 EST by Chinyere Leonard RN ED Event Note ED Event Date/Time : 09/04/2020 2:00 EST ED Description of Event : pt arrived during system downtime; view downtime form Chinyere Leonard RN - 09/04/2020 4:13 EST Electronically signed by Sivan [facility] Conversion Skein Bander Cerner at 02/04/2023 2:13 PM CDT documented in this encounter Plan of Treatment Not on file documented as of this encounter Visit Diagnoses Not on filedocumented in this encounter Care Teams Brokerage Coordinator Relationship Specialty Start Date End Date Jay Howell MD [address] [place] [phone] PCP - General Emergency Medicine 11/12/23 documented as of this encounter
--- OUTSIDE RECORDS SUMMARY | 2025-07-12 08:52 | XMS_ITS | Encounter Summary ---
Author Organization [employer] ([place], [place], [place], [place]) Address [address] [place] [address] Care Team Providers Care Netsuite Developer Name Role Phone Jay Howell MD Primary Care Provider [phone] Encounter Details Date Type Department Care Team (Late st Contact Info) Description 08/30/2020 Transcribed Document [facility] [place] [address] [place] [address] ProviderJessie MD [address] [place] [address] Social History Tobacco Use Types Packs/Day Years Used Date Smoking Tobacco: Never Assessed Comments Unknown Sex and Gender Information Value Date Recorded Sex Assigned at Not on file Legal Sex Female 7:30 PM CDT Gender Identity Not on file Sexual Orientation Not on file documented as of this encounter Miscellaneous Notes * Cerner Conversion Note - Jessie Yuen MD - 08/30/2020 9:36 AM STAVE CUTTING SUPERVISOR Patient: SKYLER MONTOYA Age: 79 years Sex: Female : 1940 Associated Diagnoses: None Author: Miladys Lopez, Pharmacist-Resident Ms. Montoya is 79 yo female admitted [...] Charted Minimum Maximum Temp 98.3 (AUG 30 05:25) 97.5 (AUG 29 18:45) 98.1 (AUG 30 02:00) Apical HR 68 (AUG 29 21:25) 68 (AUG 29 21:25) 68 (AUG 29 21:25) Mon HR 79 (AUG 30 05:25) 64 (AUG 29 10:30) 79 (AUG 30 05:25) Resp Rate 16 (AUG 30 05:25) 16 (AUG 29 18:45) 16 (AUG 29 [...] (AUG 29 16:00) 98 (AUG 29 10:30) Labs (Last four charted values) WBC 4.9 [...] 10 (NOV 11) 10 (NOV 10) 12 (AUG 25) Cr 0.70 (AUG 29) 0.70 (AUG 27) 0.70 (AUG 26) 0.90 (AUG 25) Glu R H 108 (AUG 29) H 115 (AUG 27) H 109 (AUG 26) H 120 (AUG 25) Ca 9.1 (AUG 29) 8.8 (AUG 27) 8.4 (AUG 26) 9.1 (AUG 25) Lactic 1.8 (AUG 25) C 2.3 (AUG 25) C 2.1 (AUG 25) PT H 13.8 (AUG 30) H 15.6 (AUG 29) H 17.8 (AUG 28) H 23.1 (AUG 27) INR H 1.3 (AUG 30) H 1.5 (AUG 29) H 1.7 (AUG 28) H 2.2 (AUG 27) AST 29 (AUG 25) ALT 32 (AUG 25) ALK P 63 (AUG 25) T Bili 0.9 (AUG 25) PTN 8.1 (AUG 25) ALB 4.0 (AUG 25) Troponin <0.015 (AUG 28) <0.015 (AUG 28) Date 08/30 INR 1.3 Dose 2mg Heparin bridge Plan: Continue home warfarin dose, 3mg on MWF and 2mg on TuThSaSu. Follow closely with daily INR. Goal INR per attending, 2.5-3.5 (INR--attempting to clarify with Dr. Moeller office goal INR/PT, 2.5-3.[address] Moeller) Monitor for S&S of bleeding, H&H stable over last several days. Heparin gtt started per attending as bridge therapy, NO BOLUS. Thank you for this consult, Miladys Lopez, KellD PGY-1 Probe Operator Pager #: [phone] Extension #: [phone] Electronically signed by [facility] Conversion Display Carver Cerner at 02/04/2023 2:03 PM CDT documented in this encounter Plan of Treatment Not on file documented as of this encounter Visit Diagnoses Not on filedocumented in this encounter Care Teams Netsuite Developer Relationship Specialty Start Date End Date Jay Howell MD [address] [place] [phone] PCP - General Emergency Medicine 11/12/23 documented as of this encounter
--- OUTSIDE RECORDS SUMMARY | 2025-07-12 08:52 | XMS_ITS | Encounter Summary ---
Author Organization [employer] ([place], [place], [place], [place]) Address [address] [place] [address] Care Team Providers Care It Technical Specialist Name Role Phone Jay Howell MD Primary Care Provider [phone] Encounter Details Date Type Department Care Team (Late st Contact Info) Description 12/20/2018 Transcribed Document [facility] [place] [facility] [place] [address] [place] [address] ProviderJessie MD [address] [place] [address] Social History Tobacco Use Types Packs/Day Years Used Date Smoking Tobacco: Never Assessed Comments Unknown Sex and Gender Information Value Date Recorded Sex Assigned at Not on file Legal Sex Female 7:30 PM CDT Gender Identity Not on file Sexual Orientation Not on file documented as of this encounter Miscellaneous Notes * Cerner Conversion Note - Jessie ProviderMD - 12/20/2018 9:47 PM BRANCH LENDING MANAGER Rapid Response Team Documentation Entered On: 12/20/2018 22:55 EST Performed On: 12/20/2018 21:47 EST by LO THEODORE RN Rapid Response Event Time Rapid Response Team Called : 12/20/2018 21:47 EST Rapid Response Team Arrival Time : 12/20/2018 21:48 EST Rapid Response Team Event End Time : 12/20/2018 22:00 EST Rapid Response Event Intiated By : Hospital Staff Rapid Response Team Initiation Reason : Chest pain Rapid Response Event Location Type : Other: 415 Rapid Response Team Initiation Reason Details : chest pain Rapid Response Admission Diagnosis : 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 Rapid Response Medical Background : Apnea, sleep (Medical) Arthritis (Medical) Atrial fibrillation with RVR (Medical) Blood clot (Patient Stated) COPD (Medical) Cataract (Medical) Chest pain (Medical) Chronic anticoagulation (Medical) Clotting disorder (Patient Stated) Coronary artery disease (Medical) Diabetes mellitus (Medical) Emphysema (Medical) GERD - Gastro-esophageal reflux disease (Medical) Glaucoma (Medical) High blood pressure (Medical) History of obstructive sleep apnea (Medical) Hx of pulmonary embolus (Medical) Hyperlipidemia (Medical) Multiple renal cysts (Medical) Stented coronary artery (Medical) UTI - Urinary tract infection (Medical) Rapid Response Allergies : Substance Category Reactions Severity Macrodantin Drug morphine Drug morphine Drug nitrofurantoin Drug nitrofurantoin Drug Rapid Response Recent Vital Signs : 12/20/2018 22:15 Systolic Blood Pressure 156 12/20/2018 22:15 Diastolic Blood Pressure 63 12/20/2018 22:15 Heart Rate Monitored 52 12/20/2018 21:37 Heart Rate, Apical 55 12/20/2018 19:00 Respiratory Rate 16 12/20/2018 19:00 Temperature, Fahrenheit 96.6 12/20/2018 22:15 Oxygen Saturation 98 Rapid Response Recent Lab Results : 12/20/2018 17:45 Sodium Level 141 (136-146) 12/20/2018 17:45 Potassium Level 3.5 (3.5-5.1) 12/20/2018 17:45 Calcium Level 9.3 (8.4-10.1) 12/20/2018 11:56 Glucose POC 100 (70-105) 12/20/2018 15:40 Glucose POC2 105 (70-110) 12/20/2018 17:45 Chloride Level 108 (102-112) 12/20/2018 17:45 Carbon Dioxide Level 27 (21-32) 12/20/2018 17:45 Blood Urea Nitrogen 9 (7-22) 12/20/2018 17:45 Creatinine Level 0.60 (0.55-1.02) 12/20/2018 20:43 PTT HI 37.4 (22.0-32.0) 12/20/2018 17:45 Hgb 12.2 (11.2-15.7) 12/20/2018 17:45 Hct 36.4 (34.1-44.9) 12/20/2018 17:45 RBC 3.97 (3.93-5.22) 12/20/2018 17:45 WBC 5.4 (4.5-10.5) 12/20/2018 17:45 Platelet Count LOW 156 (163-369) Weight/BMI : Clinical Weight/BMI CLINICALWEIGHT: 71.82 kg (12/20/18 19:39:00) CLINICALWEIGHT: 71.82 kg (12/20/18 11:57:00) Body Mass Index: 28 kg/m2 High (12/20/18 19:39:00) Body Mass Index: 28 kg/m2 High (12/20/18 11:57:00) Rapid Response Team Recommendation/Response : patient c/o epigastric and midsternal chest discomfort non-radiating 01/24. I think it is gas . EKG shows no ST elevation. Cardiac CHARGEMASTER SPECIALIST notified. elevated blood pressure as well. nitro ordered and given. chest pain subsided. Patient Condition at End of Event : No S/S of Acute Distress Patient Disposition Post Event : No change in location/level of care Rapid Response It Technical Specialist #1 : LO THEODORE RN BENGE, MELISSA V, RN - 12/20/2018 22:51 EST Rapid Response Systems Assessment Oxygen Therapy Mode : Nasal cannula Oxygen Flow Rate : 2 Liter/Min Cardiovascular Symptoms : Chest discomfort at rest Heart Rhythm : Regular Cardiac Rhythm : Normal sinus rhythm LO THEODORE RN - 12/20/2018 22:51 EST Electronically signed by [facility], [facility] Conversion Director Of Recreation Therapy Cerner at 02/04/2023 2:10 PM CDT documented in this encounter Plan of Treatment Not on file documented as of this encounter Visit Diagnoses Not on filedocumented in this encounter Care Teams It Technical Specialist Relationship Specialty Start Date End Date Jay Howell MD [address] [place] [phone] PCP - General Emergency Medicine 11/12/23 documented as of this encounter
--- OUTSIDE RECORDS SUMMARY | 2025-07-12 08:52 | XMS_ITS | Encounter Summary ---
Author Organization [employer] ([place], [place], [place], [place]) Address [address] [place] [address] Care Team Providers Care Bath Design Sales Consultant Name Role Phone Jay Howell MD Primary Care Provider [phone] Encounter Details Date Type Department Care Team (Late st Contact Info) Description 09/08/2020 Transcribed Document [facility] [place] [address] [place] [address] ProviderJessie MD [address] [place] [address] Social History Tobacco Use Types Packs/Day Years Used Date Smoking Tobacco: Never Assessed Comments Unknown Sex and Gender Information Value Date Recorded Sex Assigned at Not on file Legal Sex Female 7:30 PM CDT Gender Identity Not on file Sexual Orientation Not on file documented as of this encounter Miscellaneous Notes * Cerner Conversion Note - Jessie Yuen MD - 09/08/2020 5:17 PM CROTCH BREAKER Patient: SKYLER MONTOYA Age: 79 Years Sex: Female : 1940 Reason for Consultation LEFT LE wound History of Present Illness Ms. Montoya is an 79 year-old female who presents to the [facility] [place] for f/u after recent hospitalization. She has a known medical history significant for HTN, HLD, CAD s/p CABG (1992), A-FIB, COPD, DM, GERD and history of PE and sleep apnea. Patient was initially seen on 08/22/2020 due to a fall in which she developed a hematoma on the anterior tibial aspect of the left lower extremity. States she was outside, the stairs were wet, and she slipped and fell. During her visit on 08/22/2020, her hematoma was drained and packed. Wound cultures were obtained and the patient was placed on clindamycin. Patient states she was feeling much better until 08/25, when she awoke her left leg was throbbing and therefore presented back to the ED for further evaluation. She underwent LEFT LE angiogram as an inpt on 08/26/2020. She was discharged home with wound vac. She is a nonsmoker, denies any alcohol or illicit drug use. Last hgbA1c was 6.4. Review of Systems General: No recent fevers and chills/sweats HEENT: No visual changes, hearing deficits, nasal congestion, neck or throat pain Respiratory: No shortness of breath, cough, wheezing Cardiovascular: No chest pain, palpitations, syncope Gastrointestinal: no constipation, nausea, vomiting, diarrhea Genitourinary: No hematuria, dysuria, frequency Dirk/Lymph: No bleeding disorders, bruising tendency, swollen lymph glands; + hx PE Endocrine: No excessive thirst, excessive hunger Extremities: + LLE wound Musculoskeletal: no back pain, neck pain, joint pain, muscle pain, range of motion changes Skin: No rashes, pruritus, abrasions, sores Neurologic: No dizziness, history of stroke Psychiatric: No anxiety, depression Vital Signs T afebrile P 78 R 16 BP 146/67 Physical Exam General no acute distress, alert and oriented x4 HEENT normocephalic, sclerae anicteric, extraocular movements intact, ears and nose externally normal, oral mucosa moist, no jvd Lymphatic: no cervical lymphadenopathy Chest normal respiratory effort; clear to auscultation BILATERALLY Heart regular rate and rhythm Abdomen soft, non-distended, non-tender, +BS; no masses noted Extremities RLE: warm and pink without edema noted, motor and sensory intact LLE: warm and pink with pretib wound measuring 2.8x2x0.3cm with necrotic borders. This was debrided. Undermining present at 6 Oclock, measuring 0.8cm Vascular palpable DP pulses BILATERALLY Neuro cranial nerves II-XII grossly intact, sensorium intact, motor intact Integumentary no rashes, wounds/abrasions, no cyanosis, no clubbing Psychiatric cooperative, appropriate mood and affect Assessment/Plan LEFT LE wound - debridement today, see op note - continue vac - culture negative - f/u with Dr. Verde regarding recent intervention; she has palpable distal pulse. DM - last hgba1c was 6.4 - encouraged protein intake and glycemic control VTE Prophylaxis - Medical No VTE Prophylaxis Orders. Provider Information Primary Care Physician - TARA CHEN (REF), -MED Attending Physician - VITA SWEET PA Admitting Physician - VITA SWEET PA Referring Physician - VITA SWEET PA Problem List/Past Medical History HTN HLD CAD A-FIB on Coumadin COPD DM GERD h/o sleep apnea h/o PE Procedure/Surgical History 08/26/2020 ([facility]; [facility]) - Aortogram with LEFT lower extremity run-off - LEFT PT angioplasty ([id number] [employer]) - LEFT peroneal angioplasty (2.5-8f045fo [employer]) - LEFT leg debridement Other: - Cardiac Stenting 2007 - CABG 1992 - Appendectomy - Lumbar surgery - Cholecystectomy - Femur repair - Hip Replacement - Hysterectomy - Cataract surgery Medications Inpatient No active inpatient medications Home atorvastatin 80 mg oral tablet, 80 [...] Bedtime, PRN Allergies Macrodantin morphine (rash, rash) nitrofurantoin (blisters, blisters) Social History Alcohol Use in Last 12 Months: No. Home/Environment Lives with Spouse. Living situation: Home/Independent. Nutrition/Health Caffeine intake amount: 2. Substance Abuse Drug Use Hx: No. Tobacco Smoking Status Former smoker. Family History Cancer: Mother, Father and Sister. Cardiomyopathy: Child. Coronary heart disease: Child. Heart attack: Sister and Brother. Leukemia: Child. Stroke: Brother. Diagnostic Results No studies to review Lab Results No labs to review Electronically signed by [facility], [facility] Conversion Doctor Assistant Cerner at 02/04/2023 1:55 PM CDT documented in this encounter Plan of Treatment Not on file documented as of this encounter Visit Diagnoses Not on filedocumented in this encounter Care Teams Bath Design Sales Consultant Relationship Specialty Start Date End Date Jay Howell MD [address] [place] [phone] PCP - General Emergency Medicine 11/12/23 documented as of this encounter
--- OUTSIDE RECORDS SUMMARY | 2025-07-12 08:52 | XMS_ITS | Encounter Summary ---
Author Organization [employer] ([place], [place], [place], [place]) Address [address] [place] [address] Care Team Providers Care Private Branch Exchange Operator Name Role Phone Jay Howell MD Primary Care Provider [phone] Encounter Details Date Type Department Care Team (Late st Contact Info) Description 09/22/2020 Transcribed Document [facility] [place] [address] [place] [address] ProviderJessie MD [address] [place] [address] Social History Tobacco Use Types Packs/Day Years Used Date Smoking Tobacco: Never Assessed Comments Unknown Sex and Gender Information Value Date Recorded Sex Assigned at Not on file Legal Sex Female 7:30 PM CDT Gender Identity Not on file Sexual Orientation Not on file documented as of this encounter Miscellaneous Notes * Cerner Conversion Note - Historical ProviderMD - 09/22/2020 4:56 PM ASSOCIATE QUALITY ENGINEER Patient: SKYLER MONTOYA Age: 79 Years Sex: Female : 1940 Subjective Patient presents for follow up for wound care. Has been changing the bordered foam but states she has forgotten about the Yasmine. Review of Systems Denies N/F/V/C/CP/SOB Objective Physical Exam DERM: Wound located anterior left tibia measures 2.2 x 1.5 x 0.2 cm post debridement. Wound base [...] palpable pulses - Will resume care with vascular surgery at next visit Return to wound care center within one week Medications atorvastatin 80 mg oral tablet, [...] present starting at the level of the CUFF CUTTER. Non significant, non-flow restricting plaque noted at common femoral artery. 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 There is a significant (50-75%) stenosis of the distal CUFF CUTTER. Non significant, non-flow restricting plaque noted at DPA. CUFF CUTTER & DPA non compressible for FERNIE. TBI: Non compressible. LEFT: Abnormal arterial runoff disease present starting at the level of the CUFF CUTTER. Non significant, non-flow restricting plaque noted at common femoral artery. There is a severe (>75%) stenosis of the distal CUFF CUTTER. CUFF CUTTER & DPA non compressible for FERNIE. TBI: Non compressible. documented in this encounter Plan of Treatment Not on file documented as of this encounter Visit Diagnoses Not on filedocumented in this encounter Care Teams Private Branch Exchange Operator Relationship Specialty Start Date End Date Jay Howell MD [address] [place] [phone] PCP - General Emergency Medicine 11/12/23 documented as of this encounter
--- OUTSIDE RECORDS SUMMARY | 2025-07-12 08:52 | XMS_ITS | Encounter Summary ---
Author Organization [employer] ([place], [place], [place], [place]) Address [address] [place] [address] Care Team Providers Care Warble Saw Operator Name Role Phone Jay Howell MD Primary Care Provider [phone] Encounter Details Date Type Department Care Team (Late st Contact Info) Description 09/01/2020 Transcribed Document [facility] [place] [address] [place] [address] ProviderJessie MD [address] [place], [place] [address] Social History Tobacco Use Types Packs/Day Years Used Date Smoking Tobacco: Never Assessed Comments Unknown Sex and Gender Information Value Date Recorded Sex Assigned at Not on file Legal Sex Female 7:30 PM CDT Gender Identity Not on file Sexual Orientation Not on file documented as of this encounter Miscellaneous Notes * Cerner Conversion Note - Jessie Yuen MD - 09/01/2020 9:47 AM ROLL UP HELPER [address] , [place], [place] [id number] Patient Copy Patient Information: Name: SKYLER MONTOYA Current Date: 09/01/2020 09:47:45 : 1940 Patient Address: [address] [place] [id number] Patient Attending Physician: SARAH CONTEH MD Primary Care Provider: TARA CHEN (REF), -MED Primary Care Provider Discharge Diagnosis: Cellulitis of leg; Hematoma of left lower leg Weight on Admission: 152 lb, 0 oz Comment: Follow-up Instructions: With: Address: When: KAVITHA HIDALGO [address] [facility], [address] [place], [place] [id number] Business (1) In 2 days 09/03/2020 Comments: needs apt scheduled prior to DC With: Address: When: TARA CHEN [address] [place] [address] Business (1) Within 2 days Comments: needs INR check We have held your Aspirin per vascular surgeon, Dr. Verde. With: Address: When: KAELA ORTAKALI [facility], [address] [place] [address] Business (1) 12:30 PM Comments: F/u w/ FERNIE With: Address: When: KAELA VERDE [facility], [address] [place], [place] [address] Business (1) 12:45 PM Comments: F/u W with Irina Troy PA-C Discharge Instructions: Immunizations Documented During Stay: No Immunizations Found Heart Failure Discharge Instructions (if any): Stroke Related Discharge Instructions (if any): Warfarin Related Discharge Instructions (if any): Final Medication List: [facility], [address] [facility] [address] [place], [place] [id number], [phone] amLODIPine (Norvasc 10 mg oral tablet) 1 Tablet(s) Oral Every Day. MAY NEED RX AT DISCHARGE; NO REFILLS AVAILABLE. Refills: 0. amoxicillin-clavulanate (amoxicillin-clavulanate 875 mg-125 mg oral tablet) 1 Tablet(s) Oral every 12 hours for 3 Day(s). Refills: 0. atorvastatin (atorvastatin 80 mg oral tablet) 1 Tablet(s) Oral At Bedtime. MAY NEED RX AT DISCHARGE; NO REFILLS AVAILABLE. Refills: 0. clopidogrel (Plavix 75 mg oral tablet) 1 Tablet(s) Oral Every Day. Refills: 0. doxycycline (Vibramycin 100 mg oral capsule) 1 Capsule(s) Oral Two Times A Day for 3 Day(s). Refills: 0. enoxaparin (Lovenox 60 mg/0.6 mL injectable solution) 70 Milligram(s) SubCutaneous every 12 hours for 5 Day(s). Refills: 0. hydrALAZINE (hydrALAZINE 50 mg oral tablet) 2 Tablet(s) Oral Two Times A Day. Refills: 0. lactobacillus acidophilus (lactobacillus acidophilus oral tablet) 2 Tablet(s) Oral Every Day for 28 Day(s). Refills: 0. terbinafine (terbinafine 250 mg oral tablet) 1 Tablet(s) Oral Every Day for 6 weeks. Refills: 0. warfarin (Coumadin 3 mg oral tablet) 1 Tablet(s) Oral Every Day for 5 Day(s). Refills: 0. Other Medications ALPRAZolam (Xanax 0.5 mg oral tablet) 1 Tablet(s) Oral At Bedtime as needed for anxiety/sleep. acetaminophen-hydrocodone ([place] 7.5 mg-325 mg oral tablet) 1 Tablet(s) Oral Every 6 Hours as needed for pain. Prescribed #12 tablets on 08/23/2020. carvedilol (carvedilol 6.25 mg oral tablet) 1 Tablet(s) Oral Three Times A Day. dorzolamide ophthalmic (dorzolamide 2% ophthalmic solution) 1 Drop(s) Eye Right Two Times A Day. losartan (losartan 100 mg oral tablet) 1 Tablet(s) Oral Every Day. metFORMIN (metFORMIN 500 mg oral tablet, extended release) 1 Tablet(s) Oral Twice a Day With Meals. multivitamin (Multiple Vitamins oral tablet) 1 Tablet(s) Oral Every Day. omeprazole (omeprazole 40 mg oral delayed release capsule) 1 Capsule(s) Oral Every Day. ranolazine (Ranexa 500 mg oral tablet, extended release) 2 Tablet(s) Oral Two Times A Day. Patient Allergies: Macrodantin; morphine; nitrofurantoin Medication Instructions: [...] difficulty sleeping, and nervousness. Patient education materials: Cellulitis, Adult Cellulitis is a skin infection. [...] these instructions at home: Medicines ??? Take dmez-eyy-rweybwu and prescription medicines only as told by [...] 03/21/2009 Document Revised: 02/22/2019 Document Reviewed: 02/22/2019 [employer] Patient Education ? 2019 [employer]. What You Need to Know About Warfarin [...] other medicines or supplements? Many prescription and zuec-zwo-uyptthd medicines can interfere with warfarin. Talk with your health care provider or your pharmacist before starting or stopping any new medicines. This includes yfif-xwo-dpnwpfi vitamins, dietary supplements, herbal medicines, and pain medicines. Your warfarin dosage may need to be adjusted. ??? Some common riaj-mqb-imdlehx medicines that may increase the risk of [...] that you work with a diet and child protective services specialist (dietitian). ??? Vitamin K decreases the [...] cooked. ??? Collards, raw or cooked. ??? Ug[place] chard, raw or cooked. ??? Mustard greens, raw or cooked. ??? Turnip greens, raw or cooked. ??? Parsley, raw. ??? Broccoli, cooked. ??? Noodles, eggs, and spinach, enriched. ??? [place] sprouts, raw or cooked. ??? Beet greens, [...] diet. ??? You start or stop any wtdm-ebn-hlhysvv medicine, prescription medicine, or dietary supplement. ??? [...] 10/03/2006 Document Revised: 05/16/2018 Document Reviewed: 12/29/2016 Elsevier Patient Education ? 2020 [employer] Hematoma A hematoma is a collection of [...] health care provider. General instructions ??? Take kwcr-fxw-mkqgpln and prescription medicines only as told by [...] 05/17/2005 Document Revised: 03/08/2019 Document Reviewed: 03/08/2019 [employer] Patient Education ? 2020 [employer] CIGARETTE SMOKING: The facts are clear, cigarette smoking will shorten your life. Smoking can cause many illnesses along the way. As a healthcare provider, we recommend that you stop smoking. Assistance with quitting is available by contacting 1-665-TFVC-NOW. This is a free resource providing counseling, [...] Be sure to sign up for the [facility] patient portal, which gives you 09/05 access to your medical information ??? including these discharge instructions ??? using your computer, smartphone, or tablet. Just go to [employer] to get started. Questions? Call . [facility] would like to thank you for allowing us to assist you with your healthcare needs. MICHELE Skaggs JUDY D, (or textile designs sales representative) have received the above patient education materials/instructions and have verbalized understanding: Patient Signature _ Date/Time Patient Human Services Case Manager Signature (if needed) Date/Time Clinician/Hospital Human Services Case Manager Signature (if needed) Date/Time Electronically signed by Interface, [facility] Conversion Oil Well Directional Surveyor Cerner at 02/04/2023 2:01 PM CDT documented in this encounter Plan of Treatment Not on file documented as of this encounter Visit Diagnoses Not on filedocumented in this encounter Care Teams Warble Saw Operator Relationship Specialty Start Date End Date Jay Howell MD [address] [place] [phone] PCP - General Emergency Medicine 11/12/23 documented as of this encounter
--- OUTSIDE RECORDS SUMMARY | 2025-07-12 08:52 | XMS_ITS | Encounter Summary ---
Author Organization [employer] ([place], [place], [place], [place]) Address [address] [place] [address] Care Team Providers Care Uniform Force Captain Name Role Phone Jay Howell MD Primary Care Provider [phone] Encounter Details Date Type Department Care Team (Late st Contact Info) Description 08/30/2020 Transcribed Document [facility] [place] [address] [place] [address] ProviderJessie MD [address] [place] [address] Social History Tobacco Use Types Packs/Day Years Used Date Smoking Tobacco: Never Assessed Comments Unknown Sex and Gender Information Value Date Recorded Sex Assigned at Not on file Legal Sex Female 7:30 PM CDT Gender Identity Not on file Sexual Orientation Not on file documented as of this encounter Miscellaneous Notes * Cerner Conversion Note - Jessie Yuen MD - 08/30/2020 10:43 AM COMPUTER SECURITY COORDINATOR Patient: SKYLER MONTOYA Age: 79 years Sex: [...] level of muscle per surgery *Operation RIGHT CLINICAL DOCUMENTATION SPEC access - ultrasound guided Aortogram with LEFT lower extremity run-off LEFT PT angioplasty ([id number] Nanocross) LEFT peroneal angioplasty (2.5-1t880lt Nanocross) RIGHT CLINICAL DOCUMENTATION SPEC closure (Angioseal) LEFT leg debridement 08/30/20 doing better; + pain in the left [...] pyuria. No other rash. REVIEW OF SYSTEMS: 08/30/20 CONSTITUTIONAL: No fever. No chills or sweats. [...] 24 hrs) Last Charted Minimum Maximum Temp 97.3 (AUG 30:) 97.3 (AUG 30:) 98.1 (AUG 30 02:00) Apical HR 76 (AUG 30 09:37) 68 (AUG 29 21:25) 76 (AUG 30 09:37) Mon HR 65 (AUG 30:) 65 (AUG 30 10:) 79 (AUG 30 05:25) Resp Rate 16 (AUG 30 05:25) 16 (AUG 29 18:45) 16 (AUG 29 18:45) SBP H 176 (AUG 30:) 127 (AUG 29 16:00) H 176 (AUG 30:) DBP L 52 (AUG 30:) L 51 (AUG 30 02:00) H 98 (AUG 29 16:) MAP 81 (AUG 30:) 69 (AUG 30 02:00) 102 (AUG 29 16:) SpO2 100 (AUG 30:) 97 (AUG 29 16:00) 100 (AUG 30:) GENERAL: The patient is elderly, sleepy EYES: [...] Level 0.70 mg/dL 08/29/2020 02:04 Bun/Creatinine 22.9 DE 08/29/2020 02:04 eGFR >60 mL/min/1.73m2 08/29/2020 02:04 eGFR NonAfrican >60 mL/min/1.73m2 08/29/2020 02:04 Bun/Creatinine 22.9 DE 08/29/2020 07:33 Sodium Level 138 mmol/L 08/29/2020 02:04 Potassium Level 3.8 mmol/L 08/30/2020 04:13 Chloride Level 108 mmol/L 08/29/2020 02:04 Carbon Dioxide Level 23 mmol/L 08/29/2020 02:04 Anion Gap 10 08/29/2020 02:04 Blood Urea Nitrogen 16 mg/dL 08/29/2020 02:04 Glucose Level 108 mg/dL DE 08/29/2020 02:04 Calcium Level 9.1 mg/dL 08/29/2020 02:04 MICRO: ACC: [id number] ORDER: Culture Blood DATE: 08/25/2020 05:01 SOURCE: Blood SITE: Reports Final 08/30/2020 06:01 No growth at 5 days. Pre 08/29/2020 06:01 No growth at 4 days. Pre 08/28/2020 06:01 No growth at 3 days. Pre 08/27/2020 06:01 No growth at 2 days. Pre 08/26/2020 06:01 No growth at 1 day. Pre 08/25/2020 23:02 Culture less than 24 Hrs old == ACC: [id number] ORDER: Culture Blood DATE: 08/25/2020 05:01 SOURCE: Blood SITE: Reports Final 08/30/2020 06:01 No growth at 5 days. Pre 08/29/2020 06:02 No growth at 4 days. Pre 08/28/2020 06:01 No growth at 3 days. Pre 08/27/2020 06:01 No growth at 2 days. Pre 08/26/2020 06:01 No growth at 1 day. Pre 08/25/2020 23:02 Culture less than 24 Hrs old == ACC: [id number] ORDER: Culture Wound and Stain DATE: 08/26/2020 15:23 SOURCE: Surgical Swab SITE: Leg Lower L Reports Final 08/29/2020 08:29 No growth Pre 08/27/2020 07:14 No growth GS 08/26/2020 18:13 Few White Blood Cells No organisms seen. == ACC: [id number] ORDER: Culture Wound and Stain DATE: 08/25/2020 05:00 SOURCE: Wound SITE: Leg Lower L Reports Final 08/28/2020 08:57 No growth Pre 08/26/2020 06:23 No growth GS 08/25/2020 07:26 No organisms seen. Few White Blood Cells Rare epithelial cells == ACC: [id number] ORDER: Culture AFB and Stain DATE: 08/26/2020 13:56 SOURCE: Surgical Swab SITE: Leg Lower L Reports AFS 08/27/2020 13:07 No Acid Fast Bacilli seen == ACC: [id number] ORDER: Culture Anaerobic DATE: 08/26/2020 13:56 SOURCE: Surgical Swab SITE: Leg Lower L Reports Pre 08/28/2020 07:01 No Anaerobic growth Pre 08/27/2020 07:47 Culture in progress == ACC: [id number] ORDER: Culture Fungus DATE: 08/26/2020 13:56 SOURCE: Surgical Swab SITE: Leg Lower L Reports SINDI 08/26/2020 16:09 No Fungal elements seen == No Radiology Results Found Impression: 1. Acute left lower leg cellulitis. [...] need to monitor INR closely after discharge documented in this encounter Plan of Treatment Not on file documented as of this encounter Visit Diagnoses Not on filedocumented in this encounter Care Teams Uniform Force Captain Relationship Specialty Start Date End Date Jay Howell MD [address] [place] [phone] PCP - General Emergency Medicine 11/12/23 documented as of this encounter
--- OUTSIDE RECORDS SUMMARY | 2025-07-12 08:52 | XMS_ITS | Encounter Summary ---
Author Organization [employer] ([place], [place], [place], [place]) Address [address] [place] [address] Care Team Providers Care Track Manager Name Role Phone Jay Howell MD Primary Care Provider [phone] Encounter Details Date Type Department Care Team (Late st Contact Info) Description 08/31/2020 Transcribed Document [facility] [place] Family Medicine [address] [place] [address] ProviderJessie MD [address] [place] [address] Social History Tobacco Use Types Packs/Day Years Used Date Smoking Tobacco: Never Assessed Comments Unknown Sex and Gender Information Value Date Recorded Sex Assigned at Not on file Legal Sex Female 7:30 PM CDT Gender Identity Not on file Sexual Orientation Not on file documented as of this encounter Miscellaneous Notes * Cerner Conversion Note - Jessie Yuen MD - 08/31/2020 10:44 AM E[employer] Patient: SKYLER MONTOYA Age: 79 years Sex: [...] level of muscle per surgery *Operation RIGHT OPERATOR TECHNICIAN access - ultrasound guided Aortogram with LEFT lower extremity run-off LEFT PT angioplasty (2.5-0v473su Nanocross) LEFT peroneal angioplasty (2.5-2m995ki Nanocross) RIGHT OPERATOR TECHNICIAN closure (Angioseal) LEFT leg debridement 08/31/20 seen early and sleepy; + pain in [...] pyuria. No other rash. REVIEW OF SYSTEMS: 08/31/20 CONSTITUTIONAL: No fever. No chills or sweats. [...] 06:07) 98.3 (AUG 30 21:06) Apical HR 78 (AUG 31 10:00) 78 (AUG 31 10:00) 79 (AUG 30 21:03) Mon HR 77 (AUG 31 06:07) 67 (AUG 30:) 80 (AUG 31 01:38) Resp Rate 16 (AUG 31 06:07) 16 (AUG 30 15:) 16 (AUG 30 15:) SBP H 154 (AUG 31 06:07) H 143 (AUG 30:) H 158 (AUG 30 21:06) DBP L 54 (AUG 31 06:07) L 44 (AUG 31 01:38) L 54 (AUG 31 06:) MAP 79 (AUG 31 06:07) 69 (AUG 30:) 79 (AUG 31 06:07) SpO2 95 (AUG 31:07) 95 (AUG 30:06) 98 (AUG 30:) GENERAL: The patient is elderly, [...] CBC Results (Current Encounter/Past 24 Hours) WBC 6.2 K/uL 08/31/2020 03:55 Hct 32.6 % LOW 08/31/2020 03:55 Hgb 10.8 g/dL LOW 08/31/2020 03:55 Platelet Count 158 K/uL LOW 08/31/2020 03:55 CMP Results (Current Encounter/Past 24 Hours) Potassium Level 3.8 mmol/L 08/30/2020 04:13 MICRO: ACC: [id number] ORDER: Culture Anaerobic DATE: 08/26/2020 13:56 SOURCE: Surgical Swab SITE: Leg Lower L Reports Final 08/31/2020 07:45 No Anaerobic growth Pre 08/28/2020 07:01 No Anaerobic growth Pre 08/27/2020 07:47 Culture in progress == ACC: [id number] ORDER: Culture Blood DATE: 08/25/2020 05:01 SOURCE: Blood SITE: Reports Final 08/30/2020 06:01 No growth at 5 days. Pre 08/29/2020 06:01 No growth at 4 days. Pre 08/28/2020 06:01 No growth at 3 days. Pre 08/27/2020 06:01 No growth at 2 days. Pre 08/26/2020 06:01 No growth at 1 day. Pre 08/25/2020 23:02 Culture less than 24 Hrs old == ACC: [id number] ORDER: Culture Blood DATE: 08/25/2020 05:01 SOURCE: Blood SITE: Reports Final 08/30/2020 06:01 No growth at 5 days. Pre 08/29/2020 06:02 No growth at 4 days. Pre 08/28/2020 06:01 No growth at 3 days. Pre 08/27/2020 06:01 No growth at 2 days. Pre 08/26/2020 06:01 No growth at 1 day. Pre 08/25/2020 23:02 Culture less than 24 Hrs old == ACC: [id number] ORDER: Culture Wound and Stain DATE: 08/26/2020 15:23 SOURCE: Surgical Swab SITE: Leg Lower L Reports Final 08/29/2020 08:29 No growth Pre 08/27/2020 07:14 No growth GS 08/26/2020 18:13 Few White Blood Cells No organisms seen. == ACC: [id number] ORDER: Culture Wound and Stain DATE: 08/25/2020 05:00 SOURCE: Wound SITE: Leg Lower L Reports Final 08/28/2020 08:57 No growth Pre 08/26/2020 06:23 No growth GS 08/25/2020 07:26 No organisms seen. Few White Blood Cells Rare epithelial cells == ACC: [id number] ORDER: Culture AFB and Stain DATE: 08/26/2020 13:56 SOURCE: Surgical Swab SITE: Leg Lower L Reports AFS 08/27/2020 13:07 No Acid Fast Bacilli seen == ACC: [id number] ORDER: Culture Fungus DATE: 08/26/2020 13:56 SOURCE: [...] Daptomycin IV. 2. Zosyn IV. 3. d/w case management 4. Monitor IV and IV antibiotic with [...] if steadily better; likely amox-clav and doxy; you will need to monitor INR closely after discharge Electronically signed by Sivan [facility] Conversion Automatic Spinning Lathe Operator Cerner at 02/04/2023 2:11 PM CDT documented in this encounter Plan of Treatment Not on file documented as of this encounter Visit Diagnoses Not on filedocumented in this encounter Care Teams Track Manager Relationship Specialty Start Date End Date Jay Howell MD [address] [place] [phone] PCP - General Emergency Medicine 11/12/23 documented as of this encounter
--- OUTSIDE RECORDS SUMMARY | 2025-07-12 08:52 | XMS_ITS | Encounter Summary ---
Author Organization [employer] ([place], [place], [place], [place]) Address [address] [place] [address] Care Team Providers Care Product Test Specialist Name Role Phone Jay Howell MD Primary Care Provider [phone] Encounter Details Date Type Department Care Team (Late st Contact Info) Description 09/15/2020 Transcribed Document [facility] [place] [address] [place] [address] ProviderJessie MD [address] [place] [address] Social History Tobacco Use Types Packs/Day Years Used Date Smoking Tobacco: Never Assessed Comments Unknown Sex and Gender Information Value Date Recorded Sex Assigned at Not on file Legal Sex Female 7:30 PM CDT Gender Identity Not on file Sexual Orientation Not on file documented as of this encounter Miscellaneous Notes * Cerner Conversion Note - Jessie Yuen MD - 09/15/2020 4:06 PM INSTRUCTOR [employer] Patient: SKYLER MONTOYA Age: 79 Years Sex: Female : 1940 Subjective Patient presents for follow up for wound care. Patient states she has been compliant with wound vac but is eager to have it discontinued. Review of Systems Denies N/V/F/C/CP/SOB Objective Physical Exam DERM: Wound located anterior left tibia measures 2.4 x 1.5 x 0.3 cm post debridement. Wound base is completely granular and aside from undermining present at 5-6 oclock, wound is 0.1 cm deep. No longer with deep deficit. There is [...] office debridement and regular dressing changes. - No debridement needed today - wound is granular, has almost completely filled in - Patient should keep wound dry in the shower, keep covered with dressing at all times - Dressed ulceration with Yasmine Ag, Allevyn foam - pt will change WF - Patient is s/p vascular intervention, palpable [...] present starting at the level of the SUPERVISOR POWDERED METAL. Non significant, non-flow restricting plaque noted at common femoral artery. 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 There is a significant (50-75%) stenosis of the distal SUPERVISOR POWDERED METAL. Non significant, non-flow restricting plaque noted at DPA. SUPERVISOR POWDERED METAL & DPA non compressible for FERNIE. TBI: Non compressible. LEFT: Abnormal arterial runoff disease present starting at the level of the SUPERVISOR POWDERED METAL. Non significant, non-flow restricting plaque noted at common femoral artery. There is a severe (>75%) stenosis of the distal SUPERVISOR POWDERED METAL. SUPERVISOR POWDERED METAL & DPA non compressible for FERNIE. TBI: Non compressible. Electronically signed by Sivan [facility] Conversion Convertible Power Shovel Operator Cerner at 02/04/2023 2:21 PM CDT documented in this encounter Plan of Treatment Not on file documented as of this encounter Visit Diagnoses Not on filedocumented in this encounter Care Teams Product Test Specialist Relationship Specialty Start Date End Date Jay Howell MD [address] [place] [phone] PCP - General Emergency Medicine 11/12/23 documented as of this encounter
--- OUTSIDE RECORDS SUMMARY | 2025-07-12 08:52 | XMS_ITS | Encounter Summary ---
Author Organization [employer] ([place], [place], [place], [place]) Address [address] [place] [address] Care Team Providers Care Family Resource Specialist Name Role Phone Jay Howell MD Primary Care Provider [phone] Encounter Details Date Type Department Care Team (Late st Contact Info) Description 09/01/2020 Transcribed Document [facility] [place] Family Medicine [address] [place] [address] ProviderJessie MD [address] [place] [address] Social History Tobacco Use Types Packs/Day Years Used Date Smoking Tobacco: Never Assessed Comments Unknown Sex and Gender Information Value Date Recorded Sex Assigned at Not on file Legal Sex Female 7:30 PM CDT Gender Identity Not on file Sexual Orientation Not on file documented as of this encounter Miscellaneous Notes * Cerner Conversion Note - Jessie Yuen MD - 09/01/2020 10:55 AM PET CAREGIVER Patient: SKYLER MONTOYA Age: 79 years Sex: [...] level of muscle per surgery *Operation RIGHT ENTRY LEVEL CHEMIST access - ultrasound guided Aortogram with LEFT lower extremity run-off LEFT PT angioplasty ([id number] Nanocross) LEFT peroneal angioplasty (2.5-2a735ao Nanocross) RIGHT ENTRY LEVEL CHEMIST closure (Angioseal) LEFT leg debridement 09/01/20 probable home; + pain in the left lower leg [...] pyuria. No other rash. REVIEW OF SYSTEMS: 09/01/20 CONSTITUTIONAL: No fever. No chills or sweats. [...] hrs) Last Charted Minimum Maximum Temp 97.5 (SEP 01 04:39) 97.5 (SEP 01 04:39) 98.3 (AUG 31 12:11) Apical HR 78 (SEP 01 08:56) 75 (AUG 31 20:28) 78 (SEP 01 08:56) Mon HR 74 (SEP 01 04:39) 66 (AUG 31 20:31) 75 (AUG 31 17:52) Resp Rate 16 (SEP 01:39) 14 (AUG 31 12:11) 16 (SEP 01 04:39) SBP H 167 (SEP 01 04:39) 140 (AUG 31 12:11) H 167 (SEP 01 04:39) DBP 63 (SEP 01 04:39) L 44 (SEP 01 02:00) 63 (SEP 01 04:39) MAP 89 (SEP 01:39) 72 (SEP 01 02:00) 89 (SEP 01 04:39) SpO2 96 (SEP 01 02:00) L 92 (AUG 31 20:31) 96 (SEP 01 02:00) GENERAL: The patient is elderly, sleepy EYES: [...] CBC Results (Current Encounter/Past 24 Hours) WBC 6.0 K/uL 09/01/2020 04:19 Hct 33.3 % LOW 09/01/2020 04:19 Hgb 10.9 g/dL LOW 09/01/2020 04:19 Platelet Count 166 K/uL 09/01/2020 04:19 CMP Results (Current Encounter/Past 24 Hours) No CMP Results Found (Past 24 Hours) MICRO: ACC: [id number] ORDER: Culture Anaerobic DATE: 08/26/2020 13:56 SOURCE: Surgical Swab SITE: Leg Lower L Reports Final 08/31/2020 07:45 No Anaerobic growth Pre 08/28/2020 07:01 No Anaerobic growth Pre 08/27/2020 07:47 Culture in progress == ACC: [id number] ORDER: Culture Blood DATE: 08/25/2020 05:01 SOURCE: Blood SITE: Reports Final 08/30/2020 06:01 No growth at 5 days. Pre 08/29/2020 06:01 No growth at 4 days. Pre 08/28/2020 06:01 No growth at 3 days. Pre 08/27/2020 06:01 No growth at 2 days. Pre 08/26/2020 06:01 No growth at 1 day. Pre 08/25/2020 23:02 Culture less than 24 Hrs old == ACC: [id number] ORDER: Culture Blood DATE: 08/25/2020 05:01 SOURCE: Blood SITE: Reports Final 08/30/2020 06:01 No growth at 5 days. Pre 08/29/2020 06:02 No growth at 4 days. Pre 08/28/2020 06:01 No growth at 3 days. Pre 08/27/2020 06:01 No growth at 2 days. Pre 08/26/2020 06:01 No growth at 1 day. Pre 08/25/2020 23:02 Culture less than 24 Hrs old == ACC: [id number] ORDER: Culture Wound and Stain DATE: 08/26/2020 15:23 SOURCE: Surgical Swab SITE: Leg Lower L Reports Final 08/29/2020 08:29 No growth Pre 08/27/2020 07:14 No growth GS 08/26/2020 18:13 Few White Blood Cells No organisms seen. == ACC: [id number] ORDER: Culture Wound and Stain DATE: 08/25/2020 05:00 SOURCE: Wound SITE: Leg Lower L Reports Final 08/28/2020 08:57 No growth Pre 08/26/2020 06:23 No growth GS 08/25/2020 07:26 No organisms seen. Few White Blood Cells Rare epithelial cells == ACC: [id number] ORDER: Culture AFB and Stain DATE: 08/26/2020 13:56 SOURCE: Surgical Swab SITE: Leg Lower L Reports AFS 08/27/2020 13:07 No Acid Fast Bacilli seen == ACC: [id number] ORDER: Culture Fungus DATE: 08/26/2020 13:56 SOURCE: [...] will need to monitor INR closely after discharge; f/u with me wed in clinic Electronically signed by Sivan, [facility] Conversion Malter Operator Cerner at 02/04/2023 1:59 PM CDT documented in this encounter Plan of Treatment Not on file documented as of this encounter Visit Diagnoses Not on filedocumented in this encounter Care Teams Family Resource Specialist Relationship Specialty Start Date End Date Jay Howell MD [address] [place] [phone] PCP - General Emergency Medicine 11/12/23 documented as of this encounter
--- OUTSIDE RECORDS SUMMARY | 2025-07-12 08:52 | XMS_ITS | Encounter Summary ---
Author Organization [employer] ([place], [place], [place], [place]) Address [address] [place] [address] Care Team Providers Care Customs Inspector Name Role Phone Jay Howell MD Primary Care Provider [phone] Encounter Details Date Type Department Care Team (Late st Contact Info) Description 09/04/2020 Transcribed Document [facility] [place] Family Medicine [address] [place] [address] ProviderJessie MD [address] [place] [address] Social History Tobacco Use Types Packs/Day Years Used Date Smoking Tobacco: Never Assessed Comments Unknown Sex and Gender Information Value Date Recorded Sex Assigned at Not on file Legal Sex Female 7:30 PM CDT Gender Identity Not on file Sexual Orientation Not on file documented as of this encounter Miscellaneous Notes * Cerner Conversion Note - Jessie Yuen MD - 09/04/2020 2:10 AM PROMOTIONS DIRECTOR ED Discharge Entered On: 09/04/2020 4:14 EST Performed On: 09/04/2020 2:10 EST by Chinyere Leonard RN Discharge Process Patient Disposition : Discharge Personal Belongings With Patient : Yes Patient Education Completed : Yes Teaching Evaluation : Verbalizes understanding Education Comment : see downtime form IV Discontinued : Not applicable Nursing Documentation Completed : Yes Chinyere Leonard RN - 09/04/2020 4:14 EST ED Discharge Discharge To : Home with ambulatory/outpatient follow-up Mode Of Departure : Ambulatory Accompanied By : Unaccompanied Discharge Instructions Reviewed With, Opportunity For Questions Given : Patient Prescriptions Given to Patient : No Chinyere Leonard RN - 09/04/2020 4:14 EST Electronically signed by Sivan, [facility] Conversion Dogman/Woman Cerner at 02/04/2023 2:10 PM CDT documented in this encounter Plan of Treatment Not on file documented as of this encounter Visit Diagnoses Not on filedocumented in this encounter Care Teams Customs Inspector Relationship Specialty Start Date End Date Jay Howell MD [address] [place] [phone] PCP - General Emergency Medicine 11/12/23 documented as of this encounter
--- OUTSIDE RECORDS SUMMARY | 2025-07-12 08:52 | XMS_ITS | Encounter Summary ---
Author Organization [employer] ([place], [place], [place], [place]) Address [address] [place] [address] Care Team Providers Care Obstetrical Tech Name Role Phone Jay Howell MD Primary Care Provider [phone] Encounter Details Date Type Department Care Team (Late st Contact Info) Description 08/31/2020 Transcribed Document [facility] [place] [address] [place] [address] ProviderJessie MD [address] [place] [address] Social History Tobacco Use Types Packs/Day Years Used Date Smoking Tobacco: Never Assessed Comments Unknown Sex and Gender Information Value Date Recorded Sex Assigned at Not on file Legal Sex Female 7:30 PM CDT Gender Identity Not on file Sexual Orientation Not on file documented as of this encounter Miscellaneous Notes * Cerner Conversion Note - Jessie Yuen MD - 08/31/2020 8:53 AM CONTRACT WRITER Patient: SKYLER MONTOYA Age: 79 years Sex: [...] 21:06) Apical HR 79 (AUG 30 21:03) 76 (AUG 30 09:37) 79 (AUG 30 21:03) Mon HR 77 (AUG 31 06:07) 65 (AUG 30 10:06) 80 (AUG 31 01:38) Resp Rate 16 (AUG 31 06:07) 16 (AUG 30 15:00) 16 (AUG 30 15:00) SBP H 154 (AUG 31 06:07) H 143 (AUG 30 15:14) H 176 (AUG 30 10:06) DBP L 54 (AUG 31 06:07) L 44 (AUG 31 01:38) L 54 (AUG 31 06:07) MAP 79 (AUG 31 06:07) 69 (AUG 30 15:14) 81 (AUG 30 10:06) SpO2 95 (AUG 31 06:07) 95 (AUG 30 21:06) 100 (AUG 30 10:06) Labs (Last four charted values) WBC 6.2 (AUG 15) 4.9 (NOV 13) 4.5 (NOV 12) 5.1 (NOV 11) HB L 10.8 (NOV 15) L 10.6 (NOV 13) L 10.5 (NOV 12) L 10.3 (NOV 11) HCT L 32.6 (NOV 15) L 32.4 (NOV 13) L 31.7 (NOV 12) L 31.2 (NOV 11) Plt L 158 (NOV 15) L 149 (NOV 13) L 139 [...] (AUG 28) <0.015 (AUG 28) Date 08/30 08/31 INR 1.3 1.3 Dose 2mg (5) Heparin bridge Assessment/Plan: Home warfarin dose, 3mg on MWF and 2mg on TuThSaSu. 08/[address] Rosas and will give a total of 5mg today and resume home regimen tomorrow. Goal INR per attending, 2.5-3.5 (INR--attempting to clarify with Dr. Moeller office goal INR/PT, 2.5-3.[address] Moeller) Monitor for S&S of bleeding, H&H stable over last several days. Heparin gtt started per attending as bridge therapy, NO BOLUS. Follow closely with daily INR. Thank you for this consult, Miladys Lopez, KellD PGY-1 Sweeper Cleaner Industrial Pager #: [phone] Extension #: [phone] Electronically signed by Sivan [facility] Conversion Mechanical Manager Cerner at 02/04/2023 2:02 PM CDT documented in this encounter Plan of Treatment Not on file documented as of this encounter Visit Diagnoses Not on filedocumented in this encounter Care Teams Obstetrical Tech Relationship Specialty Start Date End Date Jay Howell MD [address] [place] [phone] PCP - General Emergency Medicine 11/12/23 documented as of this encounter
--- OUTSIDE RECORDS SUMMARY | 2025-07-12 08:52 | XMS_ITS | Encounter Summary ---
Author Organization [employer] ([place], [place], [place], [place]) Address [address] [place] [address] Care Team Providers Care Fire Pilot Name Role Phone Jay Howell MD Primary Care Provider [phone] Encounter Details Date Type Department Care Team (Late st Contact Info) Description 08/29/2020 Transcribed Document [facility] [place] [facility] [place] [address] [place] [address] ProviderJessie MD [address] [place] [address] Social History Tobacco Use Types Packs/Day Years Used Date Smoking Tobacco: Never Assessed Comments Unknown Sex and Gender Information Value Date Recorded Sex Assigned at Not on file Legal Sex Female 7:30 PM CDT Gender Identity Not on file Sexual Orientation Not on file documented as of this encounter Miscellaneous Notes * Cerner Conversion Note - Jessie Yuen MD - 08/29/2020 2:41 PM BUCKLE FRAME SHAPER On Going Discharge Planning Entered On: 08/29/2020 14:44 EST Performed On: 08/29/2020 14:41 EST by KAVITA PELLETIER RN-Size StamperIdentification Technician Progress Note Discharge Arrangements : Patient Post-Acute Information Patient Name: SKYLER MONTOYA Gender: Female : [birth year] Age: 79 Years No Post-Acute Placement(s) Listed No Post-Acute Service(s) Listed No [place] Referral(s) Listed Discharge Options Discussed with Patient : DME, Home Health Barriers to Discharge Identified : Clinical Condition of Patient Barriers to Discharge Unresolved : Clinical Condition of Patient Designation of Choice Signed : Yes Patient Offered Choice/Affiliations Explained : Yes List/Info Provided Pt/Fam/Support Person : Durable medical equipment, Home health Is the Patient Meeting Medical Necessity : Yes KAVITA PELLETIER RN-Size Stamper - 08/29/2020 14:41 EST Narrative Progress Note Narrative Progress Note : No DC today--INR-1.5. Hep gtt started to bridge Coumadin. NPWT for home obtained from [employer] and has been delivered to pt's room. Pt chose [facility] after reviewing quality and resource use information. Referral sent via Tristen and d/w Reyes in intake. She has accepted pt and sates to inform them when pt is dc'd, likely over weekend. Pt will dc home on oral abx as cx's are NGTD. D/W pt and spouse at bedside. D/W Brendan/Smith and Dr. Ordoñez. CM will continue to follow. Historical Progress Note : Cx's still pending. IV Vanc/Dapto. Vasc s/o. Pt will need NPWT-CM will obtain prior to dc. List of TOY DESIGNER's for [employer] given to pt. She will choose and inform CM. Coumadin restarted today. CM will continue to follow. KAVITA PELLETIER RN-Size Stamper - 08/28/20 15:37:20 Pt is s/p LLE angioplasty with I&D and NPWT placement. Met with pt and spouse at bedside to discuss DCP. Pt has a rollarotr and FRW at home. She thinks her FRW is old. Her spouse will bring it tomorrow to be checked by staff if still good enough to use at home if needed. Pt has used [facility] is the past after her [facility] and went to [facility] prior to home with HH. She is agreeable to look at list of TOY DESIGNER to make an informed decision based on quality and resource use information. Cx's are pending to determine need for IV abx at home. Likely dc in a few days. CM will continue to follow. KAVITA PELLETIER RN-Size Stamper - 08/27/20 15:14:36 KAVITA PELLETIER RN-Size Stamper - 08/29/2020 14:41 EST Electronically signed by Sivan [facility] Conversion Dental Coordinator Cerner at 02/04/2023 2:06 PM CDT documented in this encounter Plan of Treatment Not on file documented as of this encounter Visit Diagnoses Not on filedocumented in this encounter Care Teams Fire Pilot Relationship Specialty Start Date End Date Jay Howell MD [address] [place] [phone] PCP - General Emergency Medicine 11/12/23 documented as of this encounter
--- OUTSIDE RECORDS SUMMARY | 2025-07-12 08:52 | XMS_ITS | Encounter Summary ---
Author Organization [employer] ([place], [place], [place], [place]) Address [address] [place] [address] Care Team Providers Care Customs Compliance Specialist Name Role Phone Jay Howell MD Primary Care Provider [phone] Encounter Details Date Type Department Care Team (Late st Contact Info) Description 09/01/2020 Transcribed Document [facility] [place] [address] [place] [address] ProviderJessie MD [address] [place] [address] Social History Tobacco Use Types Packs/Day Years Used Date Smoking Tobacco: Never Assessed Comments Unknown Sex and Gender Information Value Date Recorded Sex Assigned at Not on file Legal Sex Female 7:30 PM CDT Gender Identity Not on file Sexual Orientation Not on file documented as of this encounter Miscellaneous Notes * Cerner Conversion Note - Jessie Yuen MD - 09/01/2020 9:16 AM OFFICE SUPPORT SPECIALIST Patient: SKYLER MONTOYA Age: 79 years Sex: Female : 1940 Associated Diagnoses: None Author: Cheng Jennings, Galvanizer Zinc Cert Ms. Montoya is 79 yo female admitted for L leg debridement for hematoma evacuation after a fall. Pharmacy was asked to assist with warfarin dosing. Medication: warfarin Indication: A. fib, PE (after hip replacement), hx of PE, clotting disorder Goal INR: 2.5-3.5, 2.5-3.[address] Moeller's office (INR on admission was 3.1) Home warfarin dose: 2mg TuThSaSu, and 3mg MWF Medications Reviewed: plavix can increase risk of bleeding Vitals Signs (last 24 hrs) Last Charted Minimum Maximum Temp 97.5 (SEP 01 04:39) 97.5 (SEP 01 04:39) 98.3 (AUG 15 12:11) Apical HR 78 (AUG 16 08:56) 75 (AUG 15 20:28) 78 (AUG 15 10:00) Mon HR 74 (SEP 01 04:39) 66 (AUG 15 20:31) 75 (AUG 15 17:52) Resp Rate 16 (SEP 01 04:39) 14 (AUG 15 12:11) 16 (SEP 01 04:39) SBP H 167 (SEP 01 04:39) 140 (AUG 15 12:11) H 167 (SEP 01 04:39) DBP 63 (SEP 01 04:39) L 44 (SEP 01 02:00) 63 (SEP 01 04:39) MAP 89 (SEP 01 04:39) 72 (AUG 16 02:00) 89 (SEP 01 04:39) SpO2 96 (AUG 16 02:00) L 92 (AUG 31 20:31) 96 (SEP 01 02:00) Labs (Last four charted values) WBC 6.0 (NOV 16) 6.2 (NOV 15) 4.9 (NOV 13) 4.5 (NOV 12) HB L 10.9 (NOV 16) L 10.8 (NOV 15) L 10.6 (NOV 13) L 10.5 (NOV 12) HCT L 33.3 (NOV 16) L 32.6 (NOV 15) L 32.4 (NOV 13) L 31.7 (NOV 12) Plt 166 (NOV 16) L 158 (NOV 15) L 149 (NOV 13) L 139 (NOV 12) Na 138 (NOV 13) 139 (NOV 11) [...] 25) C 2.1 (AUG 25) PT H 14.6 (SEP 01) H 13.7 (AUG 31) H 13.8 (AUG 30) H 15.6 (AUG 29) INR H 1.4 (SEP 01) H 1.3 (AUG 31) H 1.3 (AUG 30) H 1.5 (AUG 29) AST 29 (AUG 25) ALT 32 (AUG 25) ALK P 63 (AUG 25) T Bili 0.9 (AUG 25) PTN 8.1 (AUG 25) ALB 4.0 (AUG 25) Troponin <0.015 (AUG 28) <0.015 (AUG 28) Date 08/30 08/31 09/01 INR 1.3 1.3 1.4 Dose 2mg (2+3x1 = 5mg) Patient currently being bridged with heparin gtt Assessment/Plan: 1. Recommend increasing warfarin to 3 mg daily from home dose (3mg on MWF and 2mg on TuThSaSu) until INR is once again therapeutic. Of note, patient did not receive warfarin from 08/25-08/28 while being evaluated by vascular surgery. 2. Rx to verify target INR goal of 2.5-3.5 as H&P states diagnosis of afib and PE but see no h/o mechanical valves. Attempting to clarify -- office goal INR/PT, 2.5-3.[address] Moeller. 3. Monitor for S&S of bleeding, H&H stable over last several days. 4. Continue heparin bridge until INR stable within goal range. 5. Follow closely with daily INR. 6. D/W Gia Gómezl - planning to discharge on 3mg daily with Lovenox 70mg SQ bid bridge Thank you for this consult, Nathan Tamayo RPh documented in this encounter Plan of Treatment Not on file documented as of this encounter Visit Diagnoses Not on filedocumented in this encounter Care Teams Customs Compliance Specialist Relationship Specialty Start Date End Date Jay Howell MD [address] [place] [phone] PCP - General Emergency Medicine 11/12/23 documented as of this encounter
--- OUTSIDE RECORDS SUMMARY | 2025-07-12 08:53 | XMS_ITS | Encounter Summary ---
Author Organization [employer] ([place], [place], [place], [place]) Address [address] [place] [address] Care Team Providers Care Business Lawyer Name Role Phone Jay Howell MD Primary Care Provider [phone] Encounter Details Date Type Department Care Team (Late st Contact Info) Description 08/27/2020 Transcribed Document [facility] [place] [address] [place] [address] ProviderJessie MD [address] [place] [address] Social History Tobacco Use Types Packs/Day Years Used Date Smoking Tobacco: Never Assessed Comments Unknown Sex and Gender Information Value Date Recorded Sex Assigned at Not on file Legal Sex Female 7:30 PM CDT Gender Identity Not on file Sexual Orientation Not on file documented as of this encounter Miscellaneous Notes * Cerner Conversion Note - Historical ProviderMD - 08/27/2020 3:14 PM LAND ACQUISITION ANALYST Consult Phone Call Documentation Entered On: 08/27/2020 15:23 EST Performed On: 08/27/2020 15:14 EST by JOANN DELGADILLO Phone Call for Consults Consult Phone Call/Page Attempt : First call JOANN DELGADILLO - 08/27/2020 15:23 EST documented in this encounter Plan of Treatment Not on file documented as of this encounter Visit Diagnoses Not on filedocumented in this encounter Care Teams Business Lawyer Relationship Specialty Start Date End Date Jay Howell MD [address] [place] [phone] PCP - General Emergency Medicine 11/12/23 documented as of this encounter
--- OUTSIDE RECORDS SUMMARY | 2025-07-12 08:53 | XMS_ITS | Encounter Summary ---
Author Organization [employer] ([place], [place], [place], [place]) Address [address] [place] [address] Care Team Providers Care Jig Operator Name Role Phone Jay Howell MD Primary Care Provider [phone] Encounter Details Date Type Department Care Team (Late st Contact Info) Description 08/27/2020 Transcribed Document [facility] [place] [address] [place] [address] ProviderJessie MD [address] [place], [place] [phone] Social History Tobacco Use Types Packs/Day Years Used Date Smoking Tobacco: Never Assessed Comments Unknown Sex and Gender Information Value Date Recorded Sex Assigned at Not on file Legal Sex Female 7:30 PM CDT Gender Identity Not on file Sexual Orientation Not on file documented as of this encounter Miscellaneous Notes * Cerner Conversion Note - Historical ProviderMD - 08/27/2020 5:00 PM PLASMA TABLE OPERATOR Chart Check - Review Order Profile Entered On: 08/27/2020 19:43 EST Performed On: 08/27/2020 17:00 EST by JOAO ROSA RN Chart Check Powerplans Initiated/Discontinued as Appropriate : Yes All Active Orders Reviewed : Yes JOAO ROSA RN - 08/27/2020 19:43 EST Electronically signed by Sivan [facility] Conversion Skylights Assembler Cerner at 02/04/2023 2:08 PM CDT documented in this encounter Plan of Treatment Not on file documented as of this encounter Visit Diagnoses Not on filedocumented in this encounter Care Teams Jig Operator Relationship Specialty Start Date End Date Jay Howell MD [address] [place] [phone] PCP - General Emergency Medicine 11/12/23 documented as of this encounter
--- OUTSIDE RECORDS SUMMARY | 2025-07-12 08:53 | XMS_ITS | Encounter Summary ---
Author Organization [employer] ([place], [place], [place], [place]) Address [address] [place] [address] Care Team Providers Care Handicapped Teacher Name Role Phone Jay Howell MD Primary Care Provider [phone] Encounter Details Date Type Department Care Team (Late st Contact Info) Description 03/19/2021 Transcribed Document [facility] [place] [address] [place] [address] ProviderJessie MD [address] [place], [place] [address] Social History Tobacco Use Types Packs/Day Years Used Date Smoking Tobacco: Never Assessed Comments Unknown Sex and Gender Information Value Date Recorded Sex Assigned at Not on file Legal Sex Female 7:30 PM CDT Gender Identity Not on file Sexual Orientation Not on file documented as of this encounter Miscellaneous Notes * Cerner Conversion Note - Historical ProviderMD - 03/19/2021 2:23 PM CDT Stroke/Warfarin Instructions Entered On: 03/19/2021 14:23 EDT Performed On: 03/19/2021 14:23 EDT by Laura Norton RN Stroke/Warfarin Instructions Stroke/TIA Discharge Ins : N/A Warfarin Discharge Ins : N/A Laura Norton RN - 03/19/2021 14:23 EDT Electronically signed by Gayle Finnegan Conversion Microstrategy Reports Developer Cerner at 02/04/2023 2:10 PM CDT documented in this encounter Plan of Treatment Not on file documented as of this encounter Visit Diagnoses Not on filedocumented in this encounter Care Teams Handicapped Teacher Relationship Specialty Start Date End Date Jay Howell MD [address] [place] [phone] PCP - General Emergency Medicine 11/12/23 documented as of this encounter
--- OUTSIDE RECORDS SUMMARY | 2025-07-12 08:53 | XMS_ITS | Encounter Summary ---
Author Organization [employer] ([place], [place], [place], [place]) Address [address] [place] [address] Care Team Providers Care Regional Economic Liaison Name Role Phone Jay Howell MD Primary Care Provider [phone] Encounter Details Date Type Department Care Team (Late st Contact Info) Description 08/27/[address] [facility] [place] [address] [place] [address] ProviderJessie MD [address] [place] [address] Social History Tobacco Use Types Packs/Day Years Used Date Smoking Tobacco: Never Assessed Comments Unknown Sex and Gender Information Value Date Recorded Sex Assigned at Not on file Legal Sex Female 7:30 PM CDT Gender Identity Not on file Sexual Orientation Not on file documented as of this encounter Miscellaneous Notes * Cerner Conversion Note - Jessie Yuen MD - 08/27/2020 9:53 AM BIOMASS BOILER OPERATOR WOCN Inpatient Documentation Entered On: 09/01/2020 16:35 EST Performed On: 09/01/2020 13:00 EST by HOLDEN HESS RN WOCN Admission [...] leg hematoma, cellulitis WOCN Assessment Summary : WOCN able to complete NPWT dressing change to lower leg. One piece of black granufoam securely sealed using the home machine of vlad. Reviewed with pt when to notify home health and or MD. HOLDEN HESS RN - 09/01/2020 16:32 EST Wound & Pressure Ulcer WOCN Wound Pressure Ulcer Documentation : Zkiyitmot-Tjiarl-Qzmb Abnormality: Leg Left Lower, Anterior on 09/01/2020 13:00 by HOLDEN HESS RN I/W/A Present on Admission to Hospital: No I/W/A Type: Hematoma I/W/A Dressing Status: Clean, Dry, Intact I/W/A Wound Date of Dressing Change: 1:[id number]:[id number]:0:0 I/W/A Wound Bed Description: Full-thickness, Granulating I/W/A Bed Color(s): Brown, Red I/W/A Bed Color Brown Percentage: 10 I/W/A Bed Color Red Percentage: 90 I/W/A Wound Edge: Attached I/W/A Length: 3 I/W/A Width: 2 I/W/A Depth Measurement: 0.2 I/W/A Drainage Amount: Minimal I/W/A Drainage Description: Serous I/W/A Drainage Odor: None I/W/A Photographed: Yes I/W/A Cleansing/Irrigation: Sterile saline I/W/A Skin Treatment: Barrier film I/W/A Dressing Type/Treatment: NPWT Negative Pressure Wound Therapy Activity: Assessed, Dressing changed NPWT Device Used: Home Vac Sherif Type of Foam/Gauze Removed: Black Foam Number of Black Foam Gauze Removed: 1 Type of Foam/Gauze Applied: Black Foam Number of Black Foam Gauze Applied: 1 Number of TRAC Pads Applied: 1 NPWT Pressure: Continuous NPWT Pressure Settin NPWT Canister Changed: No I/W/A Incision/Wound Healing: Granulate, Improving WOCN Ostomy Documentation : No ostomy assessments reported. HOLDEN HESS RN - 09/01/2020 16:32 EST Electronically signed by [facility] Conversion Commercial Maintenance Technician Cerner at 02/04/2023 2:18 PM CDT documented in this encounter Plan of Treatment Not on file documented as of this encounter Visit Diagnoses Not on filedocumented in this encounter Care Teams Regional Economic Liaison Relationship Specialty Start Date End Date Jay Howell MD [address] [place] [phone] PCP - General Emergency Medicine 11/12/23 documented as of this encounter
--- OUTSIDE RECORDS SUMMARY | 2025-07-12 08:53 | XMS_ITS | Encounter Summary ---
Author Organization [employer] ([place], [place], [place], [place]) Address [address] [place] [address] Care Team Providers Care Php Mysql Web Developer Name Role Phone Jay Howell MD Primary Care Provider [phone] Encounter Details Date Type Department Care Team (Late st Contact Info) Description 07/18/2021 Transcribed Document [facility] [place] [facility] [address] ProviderJessie MD [address] [place], [place] [phone] Social History Tobacco Use Types Packs/Day Years Used Date Smoking Tobacco: Never Assessed Comments Unknown Sex and Gender Information Value Date Recorded Sex Assigned at Not on file Legal Sex Female 7:30 PM CDT Gender Identity Not on file Sexual Orientation Not on file documented as of this encounter Miscellaneous Notes * Cerner Conversion Note - Jessie ProviderMD - 07/18/2021 8:32 PM CDT ED Discharge Entered On: 07/18/2021 20:33 EDT Performed On: 07/18/2021 20:32 EDT by Rogerio Barr RN Discharge Process Patient Disposition : Discharge Personal Belongings With Patient : Yes Patient Education Completed : Yes Teaching Evaluation : Verbalizes understanding IV Discontinued : Yes Rogerio Barr RN - 07/18/2021 20:32 EDT ED Discharge Discharge To : Home without planned follow-up Mode Of Departure : Ambulatory Accompanied By : Unaccompanied Discharge Instructions Reviewed With, Opportunity For Questions Given : Patient Prescriptions Given to Patient : No Momo, Hiesha, RN - 07/18/2021 20:32 EDT documented in this encounter Plan of Treatment Not on file documented as of this encounter Visit Diagnoses Not on filedocumented in this encounter Care Teams Php Mysql Web Developer Relationship Specialty Start Date End Date Jay Howell MD [address] [place] [phone] PCP - General Emergency Medicine 11/12/23 documented as of this encounter
--- OUTSIDE RECORDS SUMMARY | 2025-07-12 08:53 | XMS_ITS | Encounter Summary ---
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 Name Role Phone Jay Howell MD Primary Care Provider [phone] Encounter Details Date Type Department Care Team (Late st Contact Info) Description 08/27/2020 Transcribed Document [facility] Family Medicine [address] [place] [address] ProviderJessie MD [address] [place] [address] Social History Tobacco Use Types Packs/Day Years Used Date Smoking Tobacco: Never Assessed Comments Unknown Sex and Gender Information Value Date Recorded Sex Assigned at Not on file Legal Sex Female 7:30 PM CDT Gender Identity Not on file Sexual Orientation Not on file documented as of this encounter Miscellaneous Notes * Cerner Conversion Note - Historical ProviderMD - 08/27/2020 3:14 PM PARAOPTOMETRIC Evaluation, Occupational Therapy Entered On: 08/29/2020 13:30 EST Performed On: 08/29/2020 13:19 EST by ANAY BOCANEGRA, STUDENT-OCCUPATIONAL THERAPIST General Information, OT General Information Comment, OT : Diagnosis: Hematoma, cellulitis, LLE ANAY BOCANEGRA, STUDENT-OCCUPATIONAL THERAPIST - 08/29/2020 13:40 EST Visit Type, OT : Initial evaluation Patient Orders : Order Date Order Ordering 08/27/2020 15:14 OT Evaluation and Treatment Ordered By: KAREN PUTNAM PA-C Active Diagnoses : 08/25/2020 12:00 Cellulitis of unspecified part of limb 08/25/2020 12:00 Contusion of left lower leg, initial encounter 08/25/2020 12:00 General medical 08/25/2020 12:00 Medical screening exam Therapy Diagnosis, OT : Decreased I in ADL and fxnl mobility secondary to weakness, resulting in fxnl decline Onset of Problem, OT : 08/29/2020 EST Admission Date : 08/25/2020 05:53 Co-treated by, OT : Physical Therapist Personal Devices : Personal Devices No Devices Recorded Assistive Devices : Assistive Devices No Devices Recorded Precautions in Place : Fall prevention measures ANAY BOCANEGRA STUDENT-OCCUPATIONAL THERAPIST - 08/29/2020 13:19 EST General Status Patient Received Status : Supine in bed ANAY BOCANEGRA STUDENT-OCCUPATIONAL THERAPIST - 08/29/2020 13:19 EST Treatment Start Time : 08/29/2020 10:17 EST Patient Left Status : Up in chair, RN/PCT informed, Family/Visitors at bedside, All needs met and within reach Treatment End Time : 08/29/2020 10:37 EST Treatment Time : 20 Minute(s) ANAY BOCANEGRA STUDENT-OCCUPATIONAL THERAPIST - 08/29/2020 13:40 EST History and Environment, OT Living Situation, Therapy : Home Patient Lives With : Spouse Persons Assisting Patient at Home : Alone Professional Skilled Services : None Persons Providing Information : Patient ANAY BOCANEGRA STUDENT-OCCUPATIONAL THERAPIST - 08/29/2020 13:19 EST Home Setup : One story ANAY BOCANEGRA STUDENT-OCCUPATIONAL THERAPIST - 08/29/2020 13:40 EST ANAY BOCANEGRA STUDENT-OCCUPATIONAL THERAPIST - 08/29/2020 13:40 EST Prior LOF Bathing, OT : Independent Prior LOF Bed Mobility : Independent Prior LOF Upper Body Dressing, OT : Independent Prior LOF Lower Body Dressing, OT : Independent Prior LOF Toileting : Independent Prior LOF Transfer : Independent Prior LOF Grooming, OT : Independent Prior LOF for IADLs, OT : Independent ANAY BOCANEGRA STUDENT-OCCUPATIONAL THERAPIST - 08/29/2020 13:19 EST Upper Extremity Upper Extremity Dominance : Right Right UE Active ROM : WFL Right UE Strength : WFL Left UE Active ROM : WFL Left UE Strength : WFL Right UE Strength : WFL Left UE Strength : WFL ANAY BOCANEGRA, STUDENT-OCCUPATIONAL THERAPIST - 08/29/2020 13:19 EST Right Upper Extremity MMT Shoulder Flexion 0-180 : 5/normal Shoulder Extension 0-60 : 5/normal Shoulder Abduction 0-180 : 5/normal Shoulder Adduction 0-180 : 5/normal Shoulder Internal Rotation 0-90 : 5/normal Shoulder External Rotation 0-90 : 5/normal Elbow Flexion 0-150 : 5/normal Elbow Extension 0-0 : 5/normal Wrist Flexion 0-80 : 5/normal Wrist Extension 0-70 : 5/normal Forearm Pronation 0-70 : 5/normal Forearm Supination 0-85 : 5/normal Ulnar Deviation 0-45 : 5/normal RadialDeviation 0-20 : 5/normal ANAY BOCANEGRA, STUDENT-OCCUPATIONAL THERAPIST - 08/29/2020 13:19 EST Left Upper Extremity MMT Shoulder Flexion 0-180 : 5/normal Shoulder Extension 0-60 : 5/normal Shoulder Abduction 0-180 : 5/normal Shoulder Adduction 0-180 : 5/normal Shoulder Internal Rotation 0-90 : 5/normal Shoulder External Rotation 0-90 : 5/normal Elbow Flexion 0-150 : 5/normal Elbow Extension 0-0 : 5/normal Wrist Flexion 0-80 : 5/normal Wrist Extension 0-70 : 5/normal Forearm Pronation 0-70 : 5/normal Forearm Supination 0-85 : 5/normal Ulnar Deviation 0-45 : 5/normal RadialDeviation 0-20 : 5/normal ANAY BOCANEGRA STUDENT-OCCUPATIONAL THERAPIST - 08/29/2020 13:19 EST Self Care/Home Management, OT Self Feeding Assist Level, OT : Independent, complete Grooming Assist Level, OT : Independent, complete ANAY BOCANEGRA STUDENT-OCCUPATIONAL THERAPIST - 08/29/2020 13:40 EST Bathing Assist Level, OT : Assist, minimal ANAY BOCANEGRA, STUDENT-OCCUPATIONAL THERAPIST - 08/29/2020 13:19 EST Upper Body Dressing Assist Level, OT : Independent, complete ANAY BOCANEGRA STUDENT-OCCUPATIONAL THERAPIST - 08/29/2020 13:40 EST Lower Body Dressing Assist Level, OT : Assist, minimal Toileting Assist Level : Supervision or set-up ANAY BOCANEGRA STUDENT-OCCUPATIONAL THERAPIST - 08/29/2020 13:19 EST Toilet Transfer Assist Level : Independent, complete Bed/Chair/WC Transfer Assist Level : Independent, complete ANAY BOCANEGRA STUDENT-OCCUPATIONAL THERAPIST - 08/29/2020 13:40 EST Functional Mobility Mobility Grid Supine to Sit : Rehab Complete independence Sit to Stand : Rehab Complete independence Bed to Chair : Rehab Complete independence Chair to Bed : Rehab Complete independence Stand to Sit : Rehab Complete independence ANAY BOCANEGRA STUDENT-OCCUPATIONAL THERAPIST - 08/29/2020 13:40 EST Sit to Stand Device : Belt, gait Bed to Chair Device : Belt, gait Chair to Bed Device : Belt, gait Stand to Sit Device : Belt, gait ANAY BOCANEGRA STUDENT-OCCUPATIONAL THERAPIST - 08/29/2020 13:40 EST Cognition Assessment, OT Orientation : Oriented x 4 ANAY BOCANEGRA STUDENT-OCCUPATIONAL THERAPIST - 08/29/2020 13:19 EST Education OT Occupational Therapy Education Grid ANAY BOCANEGRA STUDENTOCCUPATIONAL THERAPIST - 08/29/2020 13:40 EST Role of Occupational Therapy : Verbalizes understanding [facility]ANEGRA [facility] - 08/29/2020 13:19 EST Teaching/Learning Assessment Barriers To Learning : None evident Individuals Taught : Patient Readiness to Learn : Cooperative Baseline Knowledge of Topic : Limited ANAY BOCANEGRA STUDENTOCCUPATIONAL THERAPIST - 08/29/2020 13:19 EST Readiness to Learn : Explanation ANAY BOCANEGRA STUDENTOCCUPATIONAL THERAPIST - 08/29/2020 13:40 EST Indication Assessment, OT Occupational Therapy Not Indicated : At prior level of function Occupational Therapy Indicated : No ANAY BOCANEGRA STUDENTOCCUPATIONAL THERAPIST - 08/29/2020 13:40 EST Plan of Care, OT Reason OT Treatment/Plan Not Established : Pt at PLOF OT Tx Plan/Goals Established w Patient : No ANAY BOCANEGRA STUDENTOCCUPATIONAL THERAPIST - 08/29/2020 13:40 EST Mcfp Goals, OT Grooming LTG Grid Goal #1 Activity : Assist : Date to Meet : Goal Status : Initial goal Comment : ANGELA DIAZ OTR/Sophie Higuera 08/29/2020 15:27 EST Dressing, Lower Body LTG Grid Goal #1 Activity : Assist : Date to Meet : Goal Status : ANGELA DIAZ OTR/Sophie - 08/29/2020 15:27 EST Toilet Transfer LTG Grid Goal #1 Activity : Assist : Date to Meet : Goal Status : ANGELA DIAZ OTR/Sophie - 08/29/2020 15:27 EST Bed Mobility/ Bed Transfer LTG Grid Goal #1 Activity : Assist : Date to Meet : Goal Status : EMILY ANGELA OTR/L - 08/29/2020 15:27 EST Treatment Note Subjective Comment : Pt agreeable, states she is looking forward to going home today ANAY BOCANEGRA, STUDENT-OCCUPATIONAL THERAPIST - 08/29/2020 13:40 EST Patient's Response to Treatment : Pt tolerate eval well ANAY BOCANEGRA STUDENT-OCCUPATIONAL THERAPIST - 08/29/2020 13:19 EST Additional Objective Information : Pt was complete I for all fx mobiltiy and ADLs Assessment : Pt at PLOF, skilled OT services not indicated OTR/L has reviewed and agrees with documentation ANGELA DIAZ OTR/L - 08/29/2020 15:27 EST Plan for Treatment : Skilled OT services not indicated ANAY BOCANEGRA STUDENT-OCCUPATIONAL THERAPIST - 08/29/2020 13:40 EST Pain Assessment Pain Scaled Used : 0-10 Pain scale Pain Score Pre-Intervention : 0 ANAY BOCANEGRA STUDENT-OCCUPATIONAL THERAPIST - 08/29/2020 13:19 EST ANAY BOCANEGRA STUDENT-OCCUPATIONAL THERAPIST - 08/29/2020 13:40 EST Image 1 - Images currently included in the form version of this document have not been included in the text rendition version of the form. Anticipated Discharge Needs, OT/PT Anticipated Discharge to : Home, with family care ANAY BOCANEGRA STUDENT-OCCUPATIONAL THERAPIST - 08/29/2020 13:19 EST Anticipated Home Equipment : None ANAY BOCANEGRA STUDENT-OCCUPATIONAL THERAPIST - 08/29/2020 13:40 EST Recommend Continued Therapy at Discharge : No ANAY BOCANEGRA STUDENT-OCCUPATIONAL THERAPIST - 08/29/2020 13:19 EST ANAY BOCANEGRA STUDENT-OCCUPATIONAL THERAPIST - 08/29/2020 13:40 EST [facility] OT Charges OT Eval Moderate Complexity : 1 ANAY BOCANEGRA STUDENT-OCCUPATIONAL THERAPIST - 08/29/2020 13:19 EST documented in this encounter Plan of Treatment Not on file documented as of this encounter Visit Diagnoses Not on filedocumented in this encounter Care Teams Lagging Machine Operator Relationship Specialty Start Date End Date Jay Howell MD [address] [place] [phone] PCP - General Emergency Medicine 11/12/23 documented as of this encounter
--- OUTSIDE RECORDS SUMMARY | 2025-07-12 08:53 | XMS_ITS | Clinical Summary ---
Author Organization [facility] [place] [address] Care Team Providers Care Collet Gluer Name Role Phone Jay Howell MD Primary Care Provider [phone] Allergies Active Allergy Reactions Criticality Noted Date Comments Lidocaine Rash Medium 06/05/2024 Nitrofurantoin Hives,Itching,Rash Medium 06/14/2013 Macrobid Medications carvedilol (Coreg) 6.25 MG tablet Take 1 tablet (6.25 mg) by mouth 2 (two) times a day with meals. Active Multiple Vitamins-Minerals (CENTRUM ADULTS PO) Take 1 tablet by mouth 1 (one) time each day in the morning. Active furosemide (Lasix) 40 MG tablet Take 1 tablet (40 mg) by mouth 1 (one) time each day in the morning. Active potassium chloride CR (Klor-Con M20) 20 MEQ ER tablet Take 1 tablet (20 mEq) by mouth 1 (one) time each day in the morning. Do not crush or chew. Active brimonidine 0.2 % OP ophthalmic solution Administer 1 drop into both eyes 2 (two) times a day. Active ranolazine (Ranexa) 500 MG 12 hr tablet Take 1 tablet (500 mg) by mouth every night. Do not crush, chew, or split. Active ranolazine (Ranexa) 1000 MG 12 hr tablet Take 1 tablet (1,000 mg) by mouth 1 (one) time each day in the morning. Do not crush, chew, or split. Active aspirin 81 MG EC tablet Take 1 tablet (81 mg) by mouth 1 (one) time each day. Active acetaminophen (Tylenol) 500 MG tablet Take 2 tablets (1,000 mg) by mouth every 8 (eight) hours if needed for pain. 08/09/20 Active atorvastatin (Lipitor) 40 MG tablet Take 1 tablet (40 mg) by mouth every night. 08/09/20 Active calcium carbonate (Tums Ultra) 1000 MG chewable tablet Chew 1 tablet (1,000 mg) 1 (one) time each day. 08/09/20 Active cholecalciferol 25 MCG tablet Take 1,000 Units by mouth 1 (one) time each day. 08/09/20 Active methocarbamol (Robaxin) 500 MG tablet Take 1 tablet (500 mg) by mouth 4 (four) times a day if needed for muscle spasms. 08/09/20 Active naloxone (Narcan) 4 mg/0.1 mL nasal spray 1. Give 1 spray in nostril for no/slow breathing or cannot wake after opioid use 2. Call 911 3. Repeat in other nostril if symptoms continue 08/09/20 Active Additional Information Patient not taking.Reported on 10/31/2024 polyethylene glycol (Miralax) 17 g packet Take 17 g by mouth 2 (two) times a day. 08/09/20 Active senna (Senokot) 8.6 MG tablet Take 2 tablets (17.2 mg) by mouth 2 (two) times a day. 08/09/20 Active ondansetron ODT (Zofran-ODT) 4 MG disintegrating tablet Take 1 tablet (4 mg) by mouth every 6 (six) hours if needed for nausea or vomiting. 08/09/20 Active ALPRAZolam (Xanax) 0.5 MG tablet Take 1 tablet (0.5 mg) by mouth at night if needed for anxiety or sleep. 3 tablet 08/09/20 Active oxyCODONE (Roxicodone) 10 MG immediate release tablet Active traMADol (Ultram) 50 MG tablet Take 1 tablet (50 mg) by mouth every 8 (eight) hours if needed for severe pain. 30 tablet 09/19/20 24 Active Active Problems Problem Noted Date Diagnosed Date Hand pain, left 08/08/2024 PVD (peripheral vascular disease) 08/07/2024 (HFpEF) heart failure with preserved ejection fr action 06/04/2024 Hx of CABG 06/04/2024 Hyperkalemia 06/04/2024 Type 2 diabetes mellitus without complication Primary open angle glaucoma (POAG) of left eye, moderate stage 05/15/2024 Hx of subdural hematoma 03/23/2024 Closed comminuted intertroch anteric fracture of proximal femur, right, initial encounter 03/20/2024 DANTE (obstructive sleep apnea) 03/20/2024 Atopic dermatitis 03/14/2024 Irritable bowel syndrome 03/14/2024 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 03/14/2024 Temporal arteritis 03/14/2024 Thrombocytopenia 01/22/2024 Overview (01/22/2024): CTM Sequela of lacunar infarction 01/22/2024 Overview (01/22/2024): Seen on imaging Outpatient management Atherosclerosis 01/22/2024 Overview (01/24/2024): Outpatient management Bilateral ICA stenosis < 50% Degenerative arthritis 01/22/2024 Overview (01/24/2024): -Incidental finding -Follow up with pcp for surveillance Emphysema lung 01/22/2024 Overview (01/24/2024): Known history No supplemental O2 use at home 02@2L NC; Wean as able Liver nodule 01/22/2024 Overview (01/22/2024): Incidental finding Nodular contour of liver, suggestive of cirrhosis Outpatient management Splenic lesion 01/22/2024 Overview (01/22/2024): Multiple hypodense Incidental finding Outpatient management Diverticulosis 01/22/2024 Overview (01/24/2024): Incidental finding Diverticulosis without acute diverticulitis Outpatient management Fall from steps, initial encounter 01/21/2024 Overview (01/21/2024): Admit to TICU Focal hemorrhagic contusion of cerebrum 01/21/20 24 Overview (01/24/2024): NSGY consulted - Repeat CTH revealed interval [...] 24 hours after demonstration of stable hemorrhage TBI (traumatic brain injury) 01/21/2024 Overview (01/22/2024): IPH, SDH, SAH - Repeat CTH revealed interval enlargement of left temporal hemorrhagic contusion - Repeat CTH 0500 pending - [facility] elevated - Na goal 140-145 - Keppra 500 mg BID for 7 days - s/p vitamin K, FFP, DDAVP for warfarin and ASA reversal - Hold warfarin and ASA for at least two weeks if possible - OK for DVT ppx 24 hours after demonstration of stable hemorrhage Multiple closed fractures of facial bone 024 Overview (01/24/2024): Left maxillary sinus anterior and posterior fxs, L orbital floor / medial wall fx Associated periorbital / periseptal and left cheek swelling. ENT/Ophthalmology consulted -Sinus Precautions X 2 weeks (02/03) ENT: Follow up on 02/01/24 @ 8:30AM with Dr. Etienne Eldridge for facial fractures Compartment syndrome 01/21/2024 Overview (01/24/2024): L orbital compartment syndrome - opthomology consulted - s/p lateral canthotomy IOP 27 -> 15 - IOP checks - sinus precautions - erythromycin ointment - ophtho: Follow up with outpatient ophthalmology/oculoplastics 02/24/24 @ 1:[address] Jonah Hernandez to review lid positioning after canthotomy. - ophtho: 03/20/24 1:[address] Chantelle Messina for 3-4 month IOP follow up Closed displaced fracture of proximal phalanx of left little finger 01/21/2024 Overview (01/24/2024): Plastic Hand Team Consulted L UGS placed [...] for management of left small finger fracture. Primary open angle glaucoma (POAG) of both eyes, severe stage 11/26/2023 Pseudophakia of both eyes 11/26/2023 Carotid stenosis, symptomatic w/o infarct, bilat eral 04/28/2023 09/23/2023 Overview (09/23/2023): Last Assessment & Plan: Carotid duplex from 05/10/2023- bilateral carotid artery stenosis (50-69%). A referral to CT surgery was sent by Shannon Flor APRN at last office visit. She is scheduled to see Dr. Alcantara on 06/06/2023. A-fib 04/28/2023 09/23/2023 Overview (01/24/2024): - Warfarin reversed with vitamin K - Currently rate controled - Home coreg resumed Holding AC/AP x 2 weeks (Resume 02/01) due to head bleed (recommend risk v benefit discussion prior to resuming due to repeat falls) Anxiety 02/19/2019 Overview (01/24/2024): Home meds Bilateral renal cysts 02/19/2019 Overview (01/24/2024): Seen on imaging, incidental finding Outpatient management Dizzy spells 01/07/2016 Overview (01/26/2024): Per family at bedside, patient has been falling frequently for the past 2-3 years. Lives alone without assistance and family has been wanting her to move into their home or consider assisted living for quite some time. Has seen a neurologist in the past and was told to go home and live her best life due to having blockages in her brain . Consider outpatient referral per PCP with neurology due to repeat falls Continue outpatient follow-up with established fitness worker; consider closer follow up with continued weakness/repeat falls. EF 64% Secondary open-angle glaucoma of right eye, ileana re stage 12/09/2015 Primary hypertension 09/30/2014 Overview (01/24/2024): -Resume home medication when appropriate Coronary artery disease invo lving coronary bypass graft of [place] heart without angina pectoris 09/30/2014 Overview (01/24/2024): Last Assessment & Plan: She has a known history of coronary artery disease. She has denied any chest pain. Her last heart catheterization was November 25, 2022 at [facility] in [place] showing: -last C 11/25/2022- A. CAD s/p CABG 2 of 3 grafts patent B. iFR of SVG to OM with results 0.98. No stenting. Recommendations: Continue medical management and risk factor modification She is on medical management; including beta-melinda, max dose of statin, Ranexa 500 mg twice a day. EF 64% 01/24/24 Cervical disc disease 09/30/2014 Gastroesophageal reflux dise ase, esophagitis presence not specified 09/30/2014 Overview (01/22/2024): Home meds Outpatient management Hyperlipidemia 09/30/2014 Overview (01/22/2024): Outpatient management Peripheral neuropathy 09/30/2014 Overview (01/22/2024): Continue outpatient management Resolved Problems Problem Noted Date Diagnosed Date Resolved Date Closed fracture of proximal end of right tibia, initial encounter 08/03/2024 08/08/2024 Closed fracture of right fibula and tibia 08/02/2024 08/08/2024 Stroke-like symptoms 03/08/2024 024 Fall 01/22/2024 08/08/2024 Overview (01/22/2024): SGT admit ABLA (acute blood loss anemia) 01/22/2024 03/23/2024 Overview (01/24/2024): CTM SOB (shortness of breath) 06/29/2023 09/23/2023 Overview (09/23/2023): Last Assessment & Plan: Acute onset of shortness of breath and left sided lung/rib pain that started 4 days ago. Patient feels like she may have a pulmonary embolism, the pain feels just like it did when she had a previous PE in 2010. She also has a history of antiphospholipid antibody syndrome and is on warfarin. - Stat CT of chest/PE protocol. Patient was sent to [facility] radiology department for CT scan today. - Check stat D-dimer. Low magnesium level 05/17/2023 09/23/2023 01/22/20 Overview (09/23/2023): Last Assessment & Plan: Labs from 05/12/2023 revealed a magnesium level [...] Continue magnesium oxide 400 mg twice daily. Palpitations 04/28/2023 09/23/2023 01/22/2024 Overview (09/23/2023): Last Assessment & Plan: Holter monitor from 04/28/2023 reveals a relatively benign monitor study. 3.8% PVC burden. Rare PVCs and rare nonsustained SVT. No atrial fibs relation noted. No life-threatening arrhythmias or pauses. BMP, magnesium and TSH labs reviewed. Magnesium was low at 1.0. - Magnesium oxide 400 mg twice daily. - Continue carvedilol at current dose. Subconjunctival hemorrhage of right eye 01/20/2021 01/22/2024 Open angle with borderline f indings and low glaucoma risk in left eye 10/03/2020 01/22/2024 Posterior capsular opacifica tion of left eye, obscuring vision 11/06/2019 01/22/2024 Gross hematuria 02/19/2019 01/22/2024 Difficulty voiding 02/19/2019 Feeling of incomplete bladder emptying 02/19/2019 01/22/2024 Urinary urgency 02/19/2019 01/22/2024 Insomnia 02/19/2019 07/07/2025 Overview (01/22/2024): Outpatient management Intermittent urinary stream 02/19/2019 01/22/2024 Pelvic floor dysfunction 02/19/201904/2024 Post-menopausal atrophic vaginitis 02/19/2019 01/22/2024 Seizure 02/19/2019 01/22/2024 Bruise of periocular tissue 04/25/2018 01/22/2024 Angina at rest 04/11/2016 01/22/2024 Unstable angina 04/10/2016 01/22/2024 Asthenia 04/09/2016 01/22/2024 Diabetes mellitus, type 2 12/09/2015 Overview (01/24/2024): SSI CTM BG HZV (herpes zoster virus) wi th ophthalmic complication 12/09/2015 01/22/2024 Dysuria 06/26/2015 01/22/2024 Low back pain 06/26/2015 01/22/2024 Arthralgia 09/30/2014 01/22/2024 Edema 09/30/2014 01/22/2024 Headache 09/30/2014 01/22/2024 Spondylosis 09/30/2014 01/22/2024 Encounters Date Type Department Care Team Description 07/09/2025 Telephone [facility] [address] [place] [address] Kimmie Cabrera 07/02/2025 Telephone [facility] [address], [address] [place] [address] None, None Returned Call 05/27/2025 Telephone [facility] [address], [address] [place] [address] Mitraneurology, Physician, 05/13/2025 Telephone [facility] [address] [place] [address] Mitraneurology, Physician, from Last 3 Months Immunizations Immunization Administration Dates Next Due Influenza, High-dose, Split Virus, Trivalent, Injectable, preservative free 07/06/2021,06/18/2017 Influenza, high-dose, quadrivalent 07/06/2021, Influenza, seasonal, injectable 09/17/2015,07/18 Influenza, seasonal, injecta ble, preservative free 06/18/2017,08/05/2016 Influenza, trivalent, adjuvanted 020,08/02/2019,06/05/2019,07/27 Pneumococcal Conjugate PCV 13 07/26/2013 Pneumococcal Polysaccharide PPV23 09/22/2017,04/2010,09/28/2000 TD (adult), 2 Lf tetanus tox oid, preservative free, adsorbed 07/07/2005 Td (adult), 5 Lf tetanus tox oid, preservative free, adsorbed 07/26/2011 Tdap 01/20/2024 Family History Medical History Relation Name Comments Cardiac disorder Brother 1 Hypertension Brother 2 Other cancer Father Prostate cancer Father Colon cancer Mother Other cancer Mother Diabetes Sister 1 Ovarian cancer Sister 2 Hypertension Son Relation Name Status Comments Brother 1 Brother 2 Father Mother Sister 1 Sister 2 Son Social History Tobacco Use Types Packs/Day Years Used Date Smoking Tobacco: Former Cigarettes 1 - 1991 Passive Smoke Exposure: Past Smokeless Tobacco: [...] place to sleep or slept in a intermediate (including now)? No 08/06/2024 CAGE ASSESSMENT Answer [...] drink first t kathleen in the morning (E[employer]-ACCOUNTS PAYABLE TECHNICIAN) to steady your nerves or to get rid of a hangover? 0 03/20/2024 CAGE Questionnaire Score 0 024 Utilities Answer Date Recorded In the past 12 months has [employer], oil, or water [employer] threatened to shut off services in your home? No 08/06/2024 Comments No Sex and Gender Information Value Date Recorded Sex Assigned at Female 03/08/2024 4:53 AM EDT Legal Sex Female 8:23 PM EDT Gender Identity Female 03/08/2024 4:53 AM EDT Sexual Orientation Straight 03/08/2024 4: 53 AM EDT Last Filed Vital Signs Vital Sign Reading Time Taken Comments Blood Pressure 139/85 10/31/2024 9:56 AM EST Pulse 96 10/31/2024 9:56 AM EST Temperature 36.4 C (97.6 F) 10/31/2024 9:56 AM EST Respiratory Rate 16 08/09/2024 7:26 AM EDT Oxygen Saturation 100% 10/31/2024 9:56 AM EST Inhaled Oxygen Concentration - - Weight 55.8 kg (123 lb) 10/31/2024 9:56 AM EST Height 157.5 cm (5' 2 ) 10/31/2024 9:56 AM EST Body Mass Index 22.5 10/31/2024 9:56 AM EST Plan of Treatment Health Maintenance Due Date Last Done Comments [facility]-Bone Density Scan 1940 [facility]-Medicare Annual Wellness (AWV) 1940 [facility]-Infant/Child/Adol SDOH Screenings 1940 Diabetes: Dental Exam 12/23/1949 [facility]-Hepatitis A Vaccines (1 of 2 - Risk 2-dose series) 12/23/1958 [facility]-Zoster Vaccines (1 of 2) 12/23/1958 [facility]-RSV Vaccine: 60+ Years or (1 - 1-dose 75+ series) 12/23/2014 [facility]-Diabetes: Hemoglobin A1C 09/17/2024 03/20/2024, 01/20/2024 [facility]- SDOH Screenings 02/04/2025 [facility]-Adult SDOH Screenings 02/04/2025 08/06/2024 [facility]-Depression Screening 04/03/2025 04/03/2024 [id number] Vaccine ( season) 2025 12/09/2021, 02/17/2021, 01/27/2021 [facility]-Influenza Vaccine (#1) 06/17/202507/06, 07/06/2021, 06/30/2020, Additional history exists [facility]-DTaP,Tdap,and Td Vaccines (2 - Td or Tdap) 01/19/2034 01/20/2024, 07/26/2011, 07/07/2005 [facility]-Pneumococcal Vaccine: 50+ Years Completed 09/22/2017, 07/26/2013, 07/23/2010, Additional history exists HPV Vaccines Aged Out No longer eligi ble based on patient's age to complete this topic [facility]-HIB Vaccines Aged Out No longer e ligible based on patient's age to complete this topic [facility]-IPV Vaccines Aged Out No longer e ligible based on patient's age to complete this topic [facility]-Rotavirus Vaccines Aged Out No lo nger eligible based on patient's age to complete this topic Medical Devices Implanted Type Area Fruit Peeler Device Identifier Shelf Expiration Date Model / Serial / Lot Nail 10s Intertan 10mm X 36cm 130d Left - [id number] Implanted:Qty: 1 on 03/20/2024 by Haroldo Braden MD at [facility] Nail Left: Femur [id number] 08/04/2033 [id number] / / [id number] Nail Tibial [id number] - [id number] Implanted:Qty: 1 on 08/06/2024 by Haroldo Braden MD at [facility] Nail Right: Tibia [employer] ([employer])-[id number] 09/15/2033 [id number] / / [id number] Lag/Comp Screw Kit 90/85 - [id number] Implanted:Qty: 1 on 03/20/2024 by Haroldo Braden MD at [facility] Screw Left: Femur [employer]-[id number] 09/26/2033 [id number] / / [id number] Screw Trigen 5.0mm For Metanail 37.5mm - [id number] Implanted:Qty: 1 on 03/20/2024 by Haroldo Braden MD at [facility] Screw Left: Femur [employer]-[id number] 08/19/2033 [id number] / / [id number] Screw Locking Adv T2 T2 D5xl60 - [id number] Implanted:Qty: 1 on 08/06/2024 by Haroldo Braden MD at [facility] Screw Right: Tibia [employer] ([employer])-[id number] 05/16/2034 [id number] / / [id number] Screw Locking Adv T2 T2 D5xl50 - [id number] Implanted:Qty: 1 on 08/06/2024 by Haroldo Braden MD at [facility] Screw Right: Tibia [employer] ([employer])-[id number] 01/14/2034 [id number] / / [id number] Screw Locking T2 D5xl42.5 - [id number] Implanted:Qty: 1 on 08/06/2024 by Haroldo Braden MD at [facility] Screw Right: Tibia [employer] ([employer])-[id number] 05/16/2034 [id number] / / [id number] Screw Locking T2 D5x35 - [id number] Implanted:Qty: 1 on 08/06/2024 by Haroldo Braden MD at [facility] Screw Right: Tibia [employer] ([employer])-[id number] 05/16/2034 [id number] / / [id number] Procedures Procedure Name Priority Date/Time Associated Diagnosis Comments HEMOGLOBIN A1C STAT Add-on 03/20/2024 12:53 AM EDT from Last 3 Months or Most Recently Relevant to Health Maintenance Results * Hemoglobin A1c (03/20/2024 12:53 AM EDT) Hemoglobin A1c 4.8 <5.7 % 03/20/2024 4:31 AM EDT [facility] Blood Venous blood specimen / Unknown Venipuncture / Unknown 03/20/2024 12:53 AM EDT 03/20/2024 12:57 AM EDT Narrative [facility] - 03/20/2024 4:31 AM EDT HA1C Interpretive Data: Diagnosis of Diabetes: Diabetic > or = 6.5% Pre-diabetic 5.7 to 6.4% Non-diabetic < or = 5.6% Glycemic Targets for Type I and Type II Diabetics: Non- Adults <7.0% Adults <6.0% Children and Adolescents <7.5% Source: [place] Diabetes Association. Standards of medical care in diabetes,2017. Diabetes Care.2017:40 (suppl 1):S1-S135. HbA1c assay performed by an ion-exchange chromatography method that is certified traceable to the DCCT. 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 Yes * Full Code Date Activated Date Inactivated Comments 03/20/2024 6:24 PM 03/23/2024 6:44 PM Question Answer Comments Patient has decision-making capacity? Yes * Full Code Date Activated Date Inactivated Comments 03/20/2024 4:37 AM 03/20/2024 6:24 PM Question Answer Comments Patient has decision-making capacity? Yes * Full Code Date Activated Date Inactivated Comments 03/08/2024 1:15 AM 03/09/2024 5:32 PM Question Answer Comments Patient has decision-making capacity? Yes * DNR - Ok to intubate Date Activated Date Inactivated Comments 01/21/2024 4:41 AM 01/26/2024 3:41 PM Question Answer Comments DNR determined on/before admission date? Yes Patient has decision-making capacity? Yes Care Teams Collet Gluer Relationship Specialty Start Date End Date Jay Howell MD [address] [place] [address] PCP - General 03/08/21
--- OUTSIDE RECORDS SUMMARY | 2025-07-12 08:53 | XMS_ITS | Encounter Summary ---
Author Organization [employer] ([place], [place], [place], [place]) Address [address] [place] [address] Care Team Providers Care Cosmetic Consultant Name Role Phone Jay Howell MD Primary Care Provider [phone] Encounter Details Date Type Department Care Team (Late st Contact Info) Description 07/18/2021 Transcribed Document [facility] Family Medicine [address] [place] [id number] ProviderJessie MD [address] [place] [address] [phone] Social History Tobacco Use Types Packs/Day Years Used Date Smoking Tobacco: Never Assessed Comments Unknown Sex and Gender Information Value Date Recorded Sex Assigned at Not on file Legal Sex Female 7:30 PM CDT Gender Identity Not on file Sexual Orientation Not on file documented as of this encounter Miscellaneous Notes * [employer] Conversion Note - Historical ProviderMD - 07/18/2021 8:15 PM CDT Electronically signed by [facility] Conversion Corrugator Operator Helper Cerner at 02/04/2023 2:03 PM CDT documented in this encounter Plan of Treatment Not on file documented as of this encounter Visit Diagnoses Not on filedocumented in this encounter Care Teams Cosmetic Consultant Relationship Specialty Start Date End Date Jay Howell MD [address] [place] [phone] PCP - General Emergency Medicine 11/12/23 documented as of this encounter
--- OUTSIDE RECORDS SUMMARY | 2025-07-12 08:53 | XMS_ITS | Encounter Summary ---
Author Organization [employer] ([place], [place], [place], [place]) Address [address] [address] Care Team Providers Care Accounts Payable Accountant Name Role Phone Jay Howell MD Primary Care Provider [phone] Encounter Details Date Type Department Care Team (Late st Contact Info) Description 08/27/2020 Transcribed Document [facility] [place] [address] [place] [address] ProviderJessie MD [address] [place] [address] Social History Tobacco Use Types Packs/Day Years Used Date Smoking Tobacco: Never Assessed Comments Unknown Sex and Gender Information Value Date Recorded Sex Assigned at Not on file Legal Sex Female 7:30 PM CDT Gender Identity Not on file Sexual Orientation Not on file documented as of this encounter Miscellaneous Notes * [employer]ner Conversion Note - Jessie Yuen MD - 08/27/2020 3:10 PM OVERSEAMER On Going Discharge Planning Entered On: 08/27/2020 15:14 EST Performed On: 08/27/2020 15:10 EST by KAVITA PELLETIER RN-Food Stand ManagerInstructor Correspondence School Progress Note Discharge Arrangements : Patient Post-Acute Information Patient Name: SKYLER MONTOYA Gender: Female : 38 Age: 79 Years No Post-Acute Placement(s) Listed No Post-Acute Service(s) Listed No [place] Referral(s) Listed Discharge Options Discussed with Patient : DME, Home Health Barriers to Discharge Identified : Clinical Condition of Patient Barriers to Discharge Unresolved : Clinical Condition of Patient Does the Patient have a Floor to SNF Benefit? : Yes Is the Patient Meeting Medical Necessity : Yes KAVITA PELLETIER RN-Food Stand Manager - 08/27/2020 15:10 EST Narrative Progress Note Narrative Progress Note : Pt is s/p LLE angioplasty with I&D [...] used [facility] is the past after her [facility] and went to [facility] prior to home with HH. She is agreeable to look at list of [employer] SECURITY OFFICER to make an informed decision based on quality and resource use information. Cx's are pending to determine need for IV abx at home. Likely dc in a few days. CM will continue to follow. KAVITA PELLETIER RN-Food Stand Manager - 08/27/2020 15:10 EST Electronically signed by [facility] Conversion Research Software Engineer Cerner at 02/04/2023 2:13 PM CDT documented in this encounter Plan of Treatment Not on file documented as of this encounter Visit Diagnoses Not on filedocumented in this encounter Care Teams Accounts Payable Accountant Relationship Specialty Start Date End Date Jay Howell MD [address] [place] [phone] PCP - General Emergency Medicine 11/12/23 documented as of this encounter
--- OUTSIDE RECORDS SUMMARY | 2025-07-12 08:53 | XMS_ITS | Encounter Summary ---
Author Organization [employer] ([place], [place], [place], [place]) Address [address] [place] [address] Care Team Providers Care Power Station Operator Name Role Phone Jay Howell MD Primary Care Provider [phone] Encounter Details Date Type Department Care Team (Late st Contact Info) Description 07/18/2021 Transcribed Document [facility] [place] Family Medicine [address] [place] [id number] ProviderJessie MD [address] [place] [address] [phone] Social History Tobacco Use Types Packs/Day Years Used Date Smoking Tobacco: Never Assessed Comments Unknown Sex and Gender Information Value Date Recorded Sex Assigned at Not on file Legal Sex Female 7:30 PM CDT Gender Identity Not on file Sexual Orientation Not on file documented as of this encounter Miscellaneous Notes * Cerner Conversion Note - Historical ProviderMD - 07/18/2021 6:43 PM CDT CR Chest 1 Vw Portable Ordered: 07/18/2021 Modified Reason for Exam: pain 07/18/2021 18:03 07/18/2021 18:43 (OLAYINKA ISSA PA-C) Reviewed by Provider, No further action required X1 documented in this encounter Plan of Treatment Not on file documented as of this encounter Visit Diagnoses Not on filedocumented in this encounter Care Teams Power Station Operator Relationship Specialty Start Date End Date Jay Howell MD [address] [place] [phone] PCP - General Emergency Medicine 11/12/23 documented as of this encounter
--- OUTSIDE RECORDS SUMMARY | 2025-07-12 08:53 | XMS_ITS | Encounter Summary ---
Author Organization [employer] ([place], [place], [place], [place]) Address [address] [place] [address] Care Team Providers Care Fiberglass Boat Maker Name Role Phone Jay Howell MD Primary Care Provider [phone] Encounter Details Date Type Department Care Team (Late st Contact Info) Description 03/19/2021 Transcribed Document [facility] [place] [address] [place] [id number] ProviderJessie MD [address] [place] [address] [phone] Social History Tobacco Use Types Packs/Day Years Used Date Smoking Tobacco: Never Assessed Comments Unknown Sex and Gender Information Value Date Recorded Sex Assigned at Not on file Legal Sex Female 7:30 PM CDT Gender Identity Not on file Sexual Orientation Not on file documented as of this encounter Miscellaneous Notes * Cerner Conversion Note - Jessie ProviderMD - 03/19/2021 11:36 AM CDT Patient: SKYLER MONTOYA Age: 80 Years Sex: Female : 1940 Admit Date 03/17/2021 13:59 Discharge Date 03/19/2021 Primary Care Provider TARA CHEN (REF), -MED Discharge Diagnosis Syncope right wrist fracture left knee sprain left hip sprain subclavian stenosis carotid stenosis CAD Atrial fibrillation Type 2 DM HTN COPD Studies ECHO: Normal left ventricular wall thickness. Visually estimated ejection fraction 60% +/- 5%. Normal left ventricular systolic function. No hemodynamically significant valvular heart disease. No masses or thrombi are seen. MRI BRAIN: Nonspecific periventricular and subcortical foci of T2 abnormality favored to represent chronic small vessel ischemia. No acute intracranial process. CTA HEAD: 1. Unremarkable anterior middle cerebral artery circulation with no stenosis or aneurysm.2. Proximal posterior cerebral artery stenoses bilaterally. 3. No intracranial aneurysm. CTA NECK: Extensive calcifications are noted. There is calcification of the carotid bifurcations bilaterally with probable focal 70-75% stenosis of the proximal non origin right internal carotid artery. There is stenosis involving the left internal carotid artery origin as well. 2. Calcification of the vertebral origins with [id number] stenosis. 3. Extensive vascular calcification. 4. Severe centrilobular emphysema. CTA CHEST: Emphysema. No pulmonary embolism or other acute abnormality. No subclavian vein occlusion is identified. CAROTID DOPPLER: RIGHT: 50-69% stenosis of the internal carotid artery. ECA >50% Stenosis. Normal antegrade vertebral flow. No evidence of subclavian steal. LEFT: Subclavian artery stenosis is greater than 50%. 50-69% stenosis of the internal carotid artery. ECA >50% Stenosis. Normal antegrade vertebral flow. No evidence of subclavian steal XR left hip, left knee, right hip showing no fractures. Reason for Hospitalization HISTORY OF PRESENT ILLNESS: This is an 80-year-old female, who was brought in because she had syncopal episode. The patient said she fell and hit her head, right upper extremity and left hip/knee and back . The patient came in to be evaluated, had multiple imaging studies. The patient with right wrist fracture. CT of head and spine with no acute abnormality. The patient had blood work, shows elevated lactic acid and culture was ordered. Start empirically of IV antibiotic. The patient lying in bed, anxious, in pain, mild distress. Hospital Course Ms Montoya had an uneventful hospitalization. She was seen by neurology and cardiology for syncope, some carotid stenosis was found but no emergent procedures are needed. Dr. Clarke (neuro) discussed the carotid stenosis with her at length, recommended more diagnostics with cerebral angiogram; patient said she would not have any surgical procedures to correct this even if it were notable so no further tests were ordered. She was seen by orthopedist, may need surgery on right wrist fracture but not emergently, will discuss as outpatient with hand surgeon. She has had no dizziness, vertigo, syncope or near syncope while in the hospital. She worked well with PT who did recommend general PT for strengthening, improve walking. She will follow up with hand surgery next week, her internet consultant in 2-4 weeks and neurologist 4-8 weeks. Pt understands hospital course and diagnoses, questions answered, she is happy to go home. Vital Signs T: 37.1 ??C TMIN: 36.9 ??C TMAX: 37.6 ??C HR: 71 RR: 18 BP: 130/68 SpO2: 95% Oxygen Settings (Last) Oxygen Therapy Mode: Nasal cannula (03/19/21 09:13:00) Oxygen Flow Rate: 2 Liter/Min (03/19/21 09:13:00) Physical Exam HEENT: Head, atraumatic and normocephalic. [...] GENERAL: The patient lying in bed, resting [1] Discharge Disposition Home Discharge Follow Up Dr Garcia cardiology [address] Comer or Anabell on March 23 or [facility] - Within 6 weeks Discharge Medications (14) Active carvedilol 6.25 mg oral tablet 6.25 mg = 1 Tab, Oral, BID Combigan 0.2%-0.5% ophthalmic solution 1 Drop, Eye Right, Q12H Durezol 0.05% ophthalmic emulsion 1 Drop, Eye Right, QID hydrALAZINE 10 mg oral tablet 10 mg = 1 Tab, Oral, TID Lipitor 80 mg oral tablet 80 mg = 1 Tab, Oral, At Bedtime losartan 100 mg oral tablet 100 mg = 1 Tab, Oral, Daily metFORMIN 500 mg oral tablet, extended release 500 mg = 1 Tab, Oral, BID With Meals Multiple Vitamins oral tablet 1 Tab, Oral, Daily Norvasc 10 mg oral tablet 10 mg = 1 Tab, Oral, Daily omeprazole 40 mg oral delayed release capsule 40 mg = 1 Cap, Oral, Daily oxyCODONE 5 mg oral tablet 5 mg = 1 Tab, Oral, Q6HInt #12 Ranexa 500 mg oral tablet, extended release 1,000 mg = 2 Tab, Oral, BID Tylenol 325 mg oral tablet 650 mg = 2 Tab, PRN, Oral, Q4H warfarin 1 mg oral tablet 3 mg = 3 Tab, Oral, Daily Code Status Start: 03/16/21 17:31:00 EDT, Full Code, Continuous Order Condition on Discharge improving, stable Consulting Physicians EMA BUSTILLOS MD-NEU (Neurology) - syncope GÓMEZ, WILLIAM MORGAN Dr orthopedics Current Diet Order Diet, Adult - Ordered -- Start: 03/17/21 10:56:00 EDT, Cardiac Diet, 60 gm carbs:[id number] george, Isolation: Standard Precautions, Instructions: Diabetic Diet Patient Discharge Summary Orders Discharge Follow Up Instructions: Follow Up Instructions: f/u Dr. Comer or Anabell ( Hand Surgery) on d/c. [phone] Activity: Discharge Activity: Activity as tolerated Diet: Discharge Diet: Heart healthy diet Driving Restriction: Do Not Drive due to fainting episode until your doctor says you can Time Spent on Discharge total time with patient, consultants, discharge 55 minutes [1] Hospitalist Progress Note - SOAP; BUBBA HUNG PA-C 03/19/2021 08:36 EDT documented in this encounter Plan of Treatment Not on file documented as of this encounter Visit Diagnoses Not on filedocumented in this encounter Care Teams Fiberglass Boat Maker Relationship Specialty Start Date End Date Jay Howell MD [address] [place] [phone] PCP - General Emergency Medicine 11/12/23 documented as of this encounter
--- OUTSIDE RECORDS SUMMARY | 2025-07-12 08:53 | XMS_ITS | Encounter Summary ---
Author Organization [employer] ([place], [place], [place], [place]) Address [address] [place] [address] Care Team Providers Care Road Design Engineer Name Role Phone Jay Howell MD Primary Care Provider [phone] Encounter Details Date Type Department Care Team (Late st Contact Info) Description 08/27/2020 Transcribed Document [facility] [place] Family Medicine [address] [place] [address] ProviderJessie MD [address] [place] [address] Social History Tobacco Use Types Packs/Day Years Used Date Smoking Tobacco: Never Assessed Comments Unknown Sex and Gender Information Value Date Recorded Sex Assigned at Not on file Legal Sex Female 7:30 PM CDT Gender Identity Not on file Sexual Orientation Not on file documented as of this encounter Miscellaneous Notes * Cerner Conversion Note - Jessie Yuen MD - 08/27/2020 8:20 AM SAND MILL GRINDER Patient: SKYLER MONTOYA Age: 79 years Sex: [...] and pain. 08/[address] Verde: *Operation RIGHT BRIDGES SUPERVISOR access - ultrasound guided Aortogram with LEFT lower extremity run-off LEFT PT angioplasty ([id number] [employer]) LEFT peroneal angioplasty (2.5-9w061xs [employer]) RIGHT BRIDGES SUPERVISOR closure (Angioseal) LEFT leg debridement 08/27/20 seen early and sleepy; + pain in [...] pyuria. No other rash. REVIEW OF SYSTEMS: 08/27/20 CONSTITUTIONAL: No fever. No chills or sweats. [...] 24 hrs) Last Charted Minimum Maximum Temp 97.9 (AUG 27 05:53) 97.9 (AUG 27 05:53) 98.3 (AUG 26 11:08) Apical HR 65 (AUG 26 20:00) L 58 (AUG 26 15:20) 65 (AUG 26 20:00) Mon HR 63 (AUG 27 05:53) 54 (AUG 26 15:30) 67 (AUG 27 00:47) Resp Rate 14 (AUG 26 19:00) L 13 (AUG 26 14:30) H 24 (AUG 26 16:30) SBP H 176 (AUG 27 05:53) 129 (AUG 26 16:45) H 176 (AUG 27 05:53) DBP 63 (AUG 27 05:53) L 43 (AUG 26 12:35) 79 (AUG 26 11:08) MAP 92 (AUG 27 05:53) 80 (AUG 26 16:00) 116 (AUG 26 14:45) SpO2 97 (AUG 27 07:59) 95 (AUG 26 17:09) 100 (AUG 26 14:30) GENERAL: The patient is elderly, sleepy EYES: [...] and ankle in various stages of evolution. surgical site noted; unable to probe to bone, tendon, joint, or ligament. no new purulence. There is vague surrounding redness, warmth, induration, and tenderness. No crepitus or bulla. No discrete fluctuance. Lines: no redness or purulence LABS: CBC Results (Current Encounter/Past 24 Hours) WBC 5.1 K/uL 08/27/2020 03:25 Hct 31.2 % LOW 08/27/2020 03:25 Hgb 10.3 g/dL LOW 08/27/2020 03:25 Platelet Count 148 K/uL LOW 08/27/2020 03:25 CMP Results (Current Encounter/Past 24 Hours) Creatinine Level 0.70 mg/dL 08/27/2020 03:40 Bun/Creatinine 14.3 08/27/2020 03:40 eGFR >60 mL/min/1.73m2 08/27/2020 03:40 eGFR NonAfrican >60 mL/min/1.73m2 08/27/2020 03:40 Sodium Level 139 mmol/L 08/27/2020 03:40 Potassium Level 4.5 mmol/L 08/27/2020 03:40 Chloride Level 109 mmol/L 08/27/2020 03:40 Carbon Dioxide Level 27 mmol/L 08/27/2020 03:40 Anion Gap 8 LOW 08/27/2020 03:44 Blood Urea Nitrogen 10 mg/dL 08/27/2020 03:40 Glucose Level 115 mg/dL HI 08/27/2020 03:44 Calcium Level 8.8 mg/dL 08/27/2020 03:40 MICRO: ACC: [id number] ORDER: Culture Anaerobic DATE: 08/26/2020 13:56 SOURCE: Surgical Swab SITE: Leg Lower L Reports Pre 08/27/2020 07:47 Culture in progress == ACC: [id number] ORDER: Culture Wound and Stain DATE: 08/26/2020 15:23 SOURCE: Surgical Swab SITE: Leg Lower L Reports Pre 08/27/2020 07:14 No growth GS 08/26/2020 18:13 Few White Blood Cells No organisms seen. == ACC: [id number] ORDER: Culture Fungus DATE: 08/26/2020 13:56 SOURCE: Surgical Swab SITE: Leg Lower L Reports SINDI 08/26/2020 16:09 No Fungal elements seen == ACC: [id number] ORDER: Culture Wound and Stain DATE: 08/25/2020 05:00 SOURCE: Wound SITE: Leg Lower L Reports Pre 08/26/2020 06:23 No growth GS 08/25/2020 07:26 No organisms seen. Few White Blood Cells Rare epithelial cells == ACC: [id number] ORDER: Culture Blood DATE: 08/25/2020 05:01 SOURCE: Blood SITE: Reports Pre 08/27/2020 06:01 No growth at 2 days. Pre 08/26/2020 06:01 No growth at 1 day. Pre 08/25/2020 23:02 Culture less than 24 Hrs old == ACC: [id number] ORDER: Culture Blood DATE: 08/25/2020 05:01 SOURCE: Blood SITE: Reports Pre 08/27/2020 06:01 No growth at 2 days. Pre 08/26/2020 06:01 No growth at 1 day. Pre 08/25/2020 23:02 Culture less than 24 Hrs old == Radiology Results (Last 48 hours) [id number] -- 08/25/2020 05:53 MRI Spine Lumbar WO (08/25/2020 15:21) Result: [...] team following as above. Discussed with them. documented in this encounter Plan of Treatment Not on file documented as of this encounter Visit Diagnoses Not on filedocumented in this encounter Care Teams Road Design Engineer Relationship Specialty Start Date End Date Jay Howell MD [address] [place] [phone] PCP - General Emergency Medicine 11/12/23 documented as of this encounter
--- OUTSIDE RECORDS SUMMARY | 2025-07-12 08:53 | XMS_ITS | Encounter Summary ---
Author Organization [employer] ([place], [place], [place], [place]) Address [address] [place] [address] Care Team Providers Care Assistant Principal Name Role Phone Jay Howell MD Primary Care Provider [phone] Encounter Details Date Type Department Care Team (Late st Contact Info) Description 07/18/2021 Transcribed Document [facility] [place] [facility], [facility] [place] [address] ProviderJessie MD [address] [place], [place] [id number] Social History Tobacco Use Types Packs/Day Years Used Date Smoking Tobacco: Never Assessed Comments Unknown Sex and Gender Information Value Date Recorded Sex Assigned at Not on file Legal Sex Female 7:30 PM CDT Gender Identity Not on file Sexual Orientation Not on file documented as of this encounter Miscellaneous Notes * Cerner Conversion Note - Historical ProviderMD - 07/18/2021 3:00 PM CDT ED Triage Entered On: 07/18/2021 15:12 EDT Performed On: 07/18/2021 15:10 EDT by CHETAN BRASWELL RN-Resource ED Triage Across the Room Chief Complaint : CP, neck pain, left arm tingling times 3 days. hx CABG 1993 Triage Date/Time : 07/18/2021 15:10 EDT CHETAN BRASWELL RN-Resource - 07/18/2021 15:10 EDT DCP GENERIC CODE Tracking Acuity : 3 - Urgent Tracking Group : [facility] ED CHETAN BRASWELL RN-Resource - 07/18/2021 15:10 EDT Mode of Arrival : Ambulatory Transported to ED by : Private vehicle To Room Via : Wheelchair Accompanied By : Unaccompanied ED Vital Signs : Document Height & Weight : Document ED Reason for Visit : Document Tetanus Immunization : Less than 5 years CHETAN BRASWELL RN-Resource - 07/18/2021 15:10 EDT Infectious Disease History Does patient have symptoms of COVID-19? : No Has the Patient Been Tested for COVID-19 in the last 14 days? : No, Patient stated Does the Patient state known exposure to a COVID-19 positive case in the last 14 days? : No Patient Vaccinated for COVID-19 : Fully vaccinated CHETAN BRASWELL RN-Resource - 07/18/2021 15:10 EDT Infectious Disease Risk Screening Grid Cough < 2 wks of unknown origin : NO Cough > 2 weeks : NO Blood in Sputum : NO Fever or self-reported Fever : NO Rash of unknown origin : NO Headache : NO Stiff neck : NO Night Sweats : NO Unexplained Weight Loss : NO Diarrhea (3 episode per day) : NO CHETAN BRASWELL RN-Resource - 07/18/2021 15:10 EDT Physical contact outside [place] in the last 30 days : No Hospitalized in Foreign Country : No Infectious Disease History : Chicken pox/Shingles, Measles, Mumps INF Disease TB Screening Calc : 0 INF Disease Recent Travel Calc : 0 CHETAN BRASWELL RN-Resource - 07/18/2021 15:10 EDT Vital Signs ED Temperature Source : Temporal artery scanning Temperature Mode : Fahrenheit Temperature, Fahrenheit : 98.2 Deg F ED Pain : Yes Clinical Temperature, C : 36.8 Deg C Oxygen Therapy Mode : Room air Peripheral Pulse Rate : 60 bpm Respiratory Rate : 18 Breaths/Min Systolic Blood Pressure : 147 mmHg (HI) Diastolic Blood Pressure : 64 mmHg Oxygen Saturation : 99 % CHETAN BRASWELL RN-Resource - 07/18/2021 15:10 EDT Diagnosis Control ED (As Of: 07/18/2021 15:12:21 EDT) Problems(Active) Apnea, sleep (SNOMED CT :175250405 ) Name of Problem: Apnea, sleep ; Recorder: JUAN LUIS GIL RN; Confirmation: Confirmed ; Classification: Medical ; Code: [id number] ; Contributor System: PowerChart ; Last Updated: 11/12/2014 10:12 EST ; Life Cycle Date: 11/12/2014 ; Life Cycle Status: Active ; Vocabulary: SNOMED CT Arthritis (SNOMED CT :3020161 ) Name of Problem: Arthritis ; Recorder: KENYON CHAMBERS RN; Confirmation: Confirmed ; Classification: Medical ; Code: 7657461 ; Contributor System: PowerChart ; Last Updated: 04/10/2016 8:04 EDT ; Life Cycle Date: 08/13/2013 ; Life Cycle Status: Active ; Vocabulary: SNOMED CT Atrial fibrillation with RVR (SNOMED CT :9389685202 ) Name of Problem: Atrial fibrillation with RVR ; Recorder: SANG RICO APRN; Confirmation: Confirmed ; Classification: Medical ; Code: [id number] ; Contributor System: PowerChart ; Last Updated: 04/10/2016 8:05 EDT ; Life Cycle Date: 04/10/2016 ; Life Cycle Status: Active ; Responsible Provider: SANG RICO APRN; Vocabulary: SNOMED CT Blood clot (SNOMED CT :199731023 ) Name of Problem: Blood clot ; Recorder: KENYON CHAMBERS RN; Confirmation: Confirmed ; Classification: Patient Stated ; Code: [id number] ; Contributor System: PowerChart ; Last Updated: [...] Vocabulary: Patient Care Chest pain (SNOMED CT :64548342 ) Name of Problem: Chest pain ; Recorder: SANG RICO APRN; Confirmation: Complaint of ; Classification: Medical ; Code: 82128305 ; Contributor System: PowerChart ; Last Updated: 04/10/2016 8:05 EDT ; Life Cycle Status: Active ; Responsible Provider: SANG RICO APRN; Vocabulary: SNOMED CT Chronic anticoagulation (SNOMED CT :164412380 ) Name of Problem: Chronic anticoagulation ; Recorder: SANG RICO APRN; Confirmation: Confirmed ; Classification: Medical ; Code: 918115432 ; Contributor System: PushCoinChart ; Last Updated: 04/10/2016 8:05 EDT ; Life Cycle Date: 04/10/2016 ; Life Cycle Status: Active ; Responsible Provider: SANG RICO APRN; Vocabulary: SNOMED CT Clotting disorder (SNOMED CT :594114382 ) Name of Problem: Clotting disorder ; Recorder: KENYON CHAMBERS RN; Confirmation: Confirmed ; Classification: Patient Stated ; Code: 769293664 ; Contributor System: PowerChart ; Last Updated: 03/28/2014 19:29 EDT ; Life Cycle Date: 08/13/2013 ; Life Cycle Status: Active ; Vocabulary: SNOMED CT COPD (SNOMED CT :09927997 ) Name of Problem: COPD ; Recorder: KENYON CHAMBERS RN; Confirmation: Confirmed ; Classification: Medical ; Code: 75033178 ; Contributor System: PowerChart ; Last Updated: 04/10/2016 8:03 EDT ; Life Cycle Date: 08/13/2013 ; Life Cycle Status: Active ; Vocabulary: SNOMED CT Coronary artery disease (SNOMED CT :3631344926 ) Name of Problem: Coronary artery disease ; Recorder: EKNYON CHAMBERS RN; Confirmation: Confirmed ; Classification: Medical ; Code: [id number] ; Contributor System: PushCoinChart ; Last Updated: 04/10/2016 8:03 EDT ; Life Cycle Date: 08/13/2013 ; Life Cycle Status: Active ; Vocabulary: SNOMED CT Diabetes mellitus (SNOMED CT :367502058 ) Name of Problem: Diabetes mellitus ; Recorder: KENYON CHAMBERS RN; Confirmation: Confirmed ; Classification: Medical ; Code: 977299737 ; Contributor System: PushCoinChart ; Last Updated: 04/10/2016 8:04 EDT ; Life Cycle Date: 08/13/2013 ; Life Cycle Status: Active ; Vocabulary: SNOMED CT Emphysema (SNOMED CT :856105441 ) Name of Problem: Emphysema ; Recorder: JUAN LUIS GIL RN; Confirmation: Confirmed ; Classification: Medical ; Code: 881531639 ; Contributor System: PowerChart ; Last Updated: 11/12/2014 10:11 EST ; Life Cycle Date: 11/12/2014 ; Life Cycle Status: Active ; Vocabulary: SNOMED CT GERD - Gastro-esophageal reflux disease (SNOMED CT :2060053511 ) Name of Problem: GERD - Gastro-esophageal reflux disease ; Recorder: KENYON CHAMBERS RN; Confirmation: Confirmed ; Classification: Medical ; Code: [id number] ; Contributor System: PowerChart ; Last Updated: [...] Patient Care High blood pressure (SNOMED CT :54748339 ) Name of Problem: High blood pressure ; Recorder: KENYON CHAMBERS RN; Confirmation: Confirmed ; Classification: Medical ; Code: 73127834 ; Contributor System: PowerChart ; Last Updated: 04/10/2016 8:03 EDT ; Life Cycle Date: 08/13/2013 ; Life Cycle Status: Active ; Vocabulary: SNOMED CT History of obstructive sleep apnea (IMO :40359067 ) Name of Problem: History of obstructive sleep apnea ; Recorder: SYSTEM, SYSTEM; Confirmation: Confirmed ; Classification: Medical ; Code: 41824459 ; Last Updated: 08/25/2020 18:21 EST ; Life Cycle Date: 08/25/2020 ; Life Cycle Status: Active ; Vocabulary: IMO Hx of pulmonary embolus (SNOMED CT :824951799 ) Name of Problem: Hx of pulmonary embolus ; Recorder: SANG RICO APRN; Confirmation: Confirmed ; Classification: Medical ; Code: 118641573 ; Contributor System: PowerChart ; Last Updated: 04/10/2016 8:05 EDT ; Life Cycle Date: 04/10/2016 ; Life Cycle Status: Active ; Responsible Provider: SANG RICO APRN; Vocabulary: SNOMED CT Hyperlipidemia (SNOMED CT :39831860 ) Name of Problem: Hyperlipidemia ; Recorder: KENYON CHAMBERS RN; Confirmation: Confirmed ; Classification: Medical ; Code: 42862431 ; Contributor System: PowerChart ; Last Updated: 04/10/2016 8:03 EDT ; Life Cycle Date: 08/13/2013 ; Life Cycle Status: Active ; Vocabulary: SNOMED CT Multiple renal cysts (SNOMED CT :177598740 ) Name of Problem: Multiple renal cysts ; Recorder: KENYON CHAMBERS RN; Confirmation: Confirmed ; Classification: Medical ; Code: 104324405 ; Contributor System: PushCoinChart ; Last Updated: 04/10/2016 8:04 EDT ; Life Cycle Date: 08/13/2013 ; Life Cycle Status: Active ; Vocabulary: SNOMED CT Stented coronary artery (SNOMED CT :9790466844 ) Name of Problem: Stented coronary artery ; Recorder: KENYON CHAMBERS RN; Confirmation: Confirmed ; Classification: Medical ; Code: [id number] ; Contributor System: PushCoinChart ; Last Updated: 04/10/2016 8:03 EDT ; Life Cycle Date: 08/13/2013 ; Life Cycle Status: Active ; Vocabulary: SNOMED CT Diagnoses(Active) Chest pain Date: 07/18/2021 ; Diagnosis Type: Reason For Visit ; Confirmation: Complaint of ; Clinical Dx: Chest pain ; Classification: Medical ; Clinical Service: Emergency medicine ; Code: PNED ; Probability: 0 ; Diagnosis Code: [id number] ED Height and Weight Height Source : Stated Height Entry Format : [place] Height, Feet : 5 ft(Converted to: 152 cm, 60 Inch) Height, Inches : 3 Inch(Converted to: 0 ft 3 Inch, 7.62 cm) Clinical Height : 160.02 cm Weight Source, ED : Critical estimated dosing weight Weight Entry Format : [place] Weight, Pounds : 154 lb Clinical Dosing Weight : 70 kg Body Surface Area (BSA) : 1.73 m2 Body Mass Index : 27.3 kg/m2 (HI) [place] Body Weight (IBW) : 52.02 kg CHETAN BRASWELL RN-Resource - 07/18/2021 15:10 EDT Pain Assessment Pain Assessment : Initial assessment Pain Scale Used : 0-10 Scale Location : Chest CHETAN BRASWELL RN-Resource - 07/18/2021 15:10 EDT Pain Scale Intensity : 6 CHETAN BRASWELL RN-Resource - 07/18/2021 15:10 EDT Image 4 - Images currently included in the form version of this document have not been included in the text rendition version of the form. documented in this encounter Plan of Treatment Not on file documented as of this encounter Visit Diagnoses Not on filedocumented in this encounter Care Teams Assistant Principal Relationship Specialty Start Date End Date Jay Howell MD [address] [place] [phone] PCP - General Emergency Medicine 11/12/23 documented as of this encounter
--- OUTSIDE RECORDS SUMMARY | 2025-07-12 08:53 | XMS_ITS | Encounter Summary ---
Author Organization [employer] ([place], [place], [place], [place]) Address [address] [place] [address] Care Team Providers Care Estate Planning Paralegal Name Role Phone Jay Howell MD Primary Care Provider [phone] Encounter Details Date Type Department Care Team (Late st Contact Info) Description 07/18/2021 Transcribed Document [facility] [place] [address] [place] [phone] ProviderJessie MD [address] [place] [address] [id number] Social History Tobacco Use Types Packs/Day Years Used Date Smoking Tobacco: Never Assessed Comments Unknown Sex and Gender Information Value Date Recorded Sex Assigned at Not on file Legal Sex Female 7:30 PM CDT Gender Identity Not on file Sexual Orientation Not on file documented as of this encounter Miscellaneous Notes * Cerner Conversion Note - Historical ProviderMD - 07/18/2021 6:43 PM CDT SARS-CoV-2 (COVID19 PCR) - - Negative 07/18/2021 18:33 07/18/2021 18:43 (OLAYINKA ISSA PA-C) Reviewed by Provider, No further action required documented in this encounter Plan of Treatment Not on file documented as of this encounter Visit Diagnoses Not on filedocumented in this encounter Care Teams Estate Planning Paralegal Relationship Specialty Start Date End Date Jay Howell MD [address] [place] [phone] PCP - General Emergency Medicine 11/12/23 documented as of this encounter
--- OUTSIDE RECORDS SUMMARY | 2025-07-12 08:53 | XMS_ITS | Encounter Summary ---
Author Organization [employer] ([place], [place], [place], [place]) Address [address] [place] [address] Care Team Providers Care Industrial Machine Operator Name Role Phone Jay Howell MD Primary Care Provider [phone] Encounter Details Date Type Department Care Team (Late st Contact Info) Description 08/27/2020 Transcribed Document [facility] [place] [address] [place] [address] ProviderJessie MD [address] [place], [place] [phone] Social History Tobacco Use Types Packs/Day Years Used Date Smoking Tobacco: Never Assessed Comments Unknown Sex and Gender Information Value Date Recorded Sex Assigned at Not on file Legal Sex Female 7:30 PM CDT Gender Identity Not on file Sexual Orientation Not on file documented as of this encounter Miscellaneous Notes * [employer]ner Conversion Note - Historical ProviderMD - 08/27/2020 3:10 PM 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 still complains of low back pain radiating into LLE--since fall. Vital Signs T: 36.5 ??C TMIN: 36.5 ??C TMAX: 36.7 ??C HR: 66(Monitored) RR: 18 BP: 153/49 SpO2: 94% Oxygen Settings (Last) Oxygen Therapy Mode: Room air (08/27/20 10:54:00) Oxygen Flow Rate: 2 Liter/Min (08/26/20 14:45:00) Intake & Output Totals Last 24 Hours (7a-7a) Input Total: 415.2 mL Output Total: 550 mL Balance: -134.8 mL Physical Exam General: [Alert and oriented, well nourished, no acute distress]. Neurologic: [Awake, alert, and oriented X3, CN II-XII intact]. Eye: [PERRL, EOMI, normal conjunctiva]. HENT: [Normocephalic, normal hearing, moist oral mucosa, no scleral icterus Neck: [Supple, no JVD]. Lungs: [Clear to auscultation, non-labored respiration]. Heart: [Normal rate, regular rhythm, no murmur, or edema]. Abdomen: [Soft, non-tender, non-distended, normal bowel sounds]. Musculoskeletal: [L reid with wound vac intact. there is improved erythema and contusing of this region]. Skin: [Skin is warm, dry and pink, no rashes]. Psychiatric: [Cooperative, appropriate mood and affect]. Assessment/Plan LLE cellulitis with hematoma -xr negative for fracture -ID consulted, IV abx -BC x 2 -wound care, wound vac, needs HH -SP ID as outpt and failed PO abx therapy PVD -underwent intervention to LLE this admission -vs added plavix, need to clarfiy with Dr. Verde need for ASA/Plavix/Coumadin -needs future outpt RLE revascularization Lactic Acidosis, resolved -felt related to above Left leg hematoma -VS consulted -wound care -hold ASA and resume per VS -hold coumadin and ASA per VS. Consider restarting if wound vac able to be hooked up and INR < 2 tomorrow without bleeding. Uncontrolled HTN, labile and improving -resume home meds -increased hydralazine to 100 BID for compliance -prn anti-htn meds Low back pain with LLE radicular sx -hx of multiple back surgeries ( 1979, 1997--Dr. Kelsey) -radiculopathy new since fall, no saddle paraesthesia/numbness/tingling/incontinence -MRI noted, pt requesting NSY consult -PT and OT diabetes with hyperglycemia -check hgba1c: 6.4, prediabetic, need to notify patient -ssi Hx of Atrial fibrillation -chronic coumadin -follow PT, INR--attempting to clarify with Dr. Moeller office goal INR/PT, 2.5-3.[address] Moeller -coumadin on hold until VS, ? 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 Avtar Moeller I have discussed w Dr. Verde as pt at risk off coumadin (INR 2.2 today). [address] Verde aware but feels pt at high risk to bleed with hematoma and placement of wound vac and risks outweight benefits acutely as her PE was long time ago and she does not appear to be in afib. He is aware of prior PE and AFIB. Hopefully we can restart tomorrow per Dr. Verde. VTE Prophylaxis - Medical Clopidogrel 75 mg, Oral, Tab, Daily, Routine, Start 08/27/20 9:00:00 EST, 08/26/20 16:01:00 EST (MURTAUGH, ТАТЬЯНА) Sequential Compression Device Start: 08/25/20 5:51:00 EST, Bilateral, While patient is in bed, Continuous Order (BETH DAVALOS) Medications acetaminophen, 650 mg= 2 Tab, Oral, Q4H, PRN acetaminophen-HYDROcodone 325 mg-5 mg oral tablet, 1 Tab, Oral, Q4H, PRN aspirin, 81 mg= 1 Tab, Oral, Daily atorvastatin, 80 mg= 2 Tab, Oral, At Bedtime carvedilol, 6.25 mg= 1 Tab, Oral, BID cloNIDine, 0.1 mg= 1 Tab, Oral, Q3H, PRN DAPTOmycin + Sodium Chloride 0.9% intravenous solution 50 mL dorzolamide 2% ophthalmic solution, 1 Drop, Eye Right, BID DuoNeb 0.5 mg-2.5 mg/3 mL inhalation solution, 3 mL, Nebulized Inhalation , RT_Q3H, PRN hydrALAZINE, 50 mg= 1 Tab, Oral, TID Lactated Ringers Injection intravenous solution 1,000 mL, 1000 mL, IntraVENous lactobacillus acidophilus, 1 Cap, Oral, Daily losartan, 100 mg= 2 Tab, Oral, Daily multivitamin, 1 Tab, Oral, Daily Norvasc, 10 mg= 1 Tab, Oral, Daily PACU fentaNYL, 25 mcg= 0.5 mL, IV Push, Q10Min, PRN Pepcid, 20 mg= 1 Tab, Oral, BID Phenergan, 12.5 mg= 1 Supp, Rectal, 1-Time, PRN Plavix, 75 mg= 1 Tab, Oral, Daily Ranexa, 1000 mg= 2 Tab, Oral, BID Transderm-Scop 1.5 mg transdermal film, extended release, 1 Patch, TransDermal, 1-Time, PRN Tylenol, 650 mg= 2 Tab, Oral, 1-Time, PRN Xanax, 0.25 mg= 1 Tab, Oral, At Bedtime, PRN Zofran, 4 mg= 2 mL, IV Push, 1-Time, PRN Zofran, 4 mg= 2 mL, IV Push, Q4H, PRN Zosyn + Sodium Chloride 0.9% intravenous solution 100 mL Lab Results Test Name Test Result Date/Time Sodium Level 139 mmol/L 08/27/2020 03:18 EST Potassium Level 4.5 mmol/L 08/27/2020 03:18 EST Chloride Level 109 mmol/L 08/27/2020 03:18 EST Carbon Dioxide Level 27 mmol/L 08/27/2020 03:18 EST Anion Gap 8 (Low) 08/27/2020 03:18 EST Glucose Level 115 mg/dL (High) 08/27/2020 03:18 EST Blood Urea Nitrogen 10 mg/dL 08/27/2020 03:18 EST Creatinine Level 0.70 mg/dL 08/27/2020 03:18 EST eGFR >60 mL/min/1.73m2 08/27/2020 03:18 EST eGFR NonAfrican >60 mL/min/1.73m2 08/27/2020 03:18 EST Bun/Creatinine 14.3 08/27/2020 03:18 EST Calcium Level 8.8 mg/dL 08/27/2020 03:18 EST Device Comment 1 Protocols Followed 08/27/2020 10:51 EST Device Comment 1 Notified Nurse RBV 08/27/2020 05:24 EST Device Comment 1 Notified Nurse RBV 08/26/2020 21:08 EST Glucose POC2 122 mg/dL (High) 08/27/2020 10:51 EST Glucose POC2 116 mg/dL (High) 08/27/2020 05:24 EST Glucose POC2 119 mg/dL (High) 08/26/2020 21:08 EST WBC 5.1 K/uL 08/27/2020 03:18 EST RBC 3.23 Million/uL (Low) 08/27/2020 03:18 EST Hgb 10.3 g/dL (Low) 08/27/2020 03:18 EST Hct 31.2 % (Low) 08/27/2020 03:18 EST MCV 96.6 fL (High) 08/27/2020 03:18 EST MCH 31.9 pg 08/27/2020 03:18 EST MCHC 33.0 Gram/dL 08/27/2020 03:18 EST Platelet Count 148 K/uL (Low) 08/27/2020 03:18 EST MPV 9.7 fL 08/27/2020 03:18 EST RDW 13.5 % 08/27/2020 03:18 EST Slide Review No 08/27/2020 03:18 EST PT 23.1 Second(s) (High) 08/27/2020 08:41 EST INR 2.2 (High) 08/27/2020 08:41 EST Electronically signed by [facility] Conversion Corporate Strategist Cerner at 02/04/2023 2:06 PM CDT documented in this encounter Plan of Treatment Not on file documented as of this encounter Visit Diagnoses Not on filedocumented in this encounter Care Teams Industrial Machine Operator Relationship Specialty Start Date End Date Jay Howell MD [address] [place] [phone] PCP - General Emergency Medicine 11/12/23 documented as of this encounter
--- OUTSIDE RECORDS SUMMARY | 2025-07-12 08:53 | XMS_ITS | Encounter Summary ---
Author Organization [employer] ([place], [place], [place], [place]) Address [address] [place] [address] Care Team Providers Care Benefits Manager Name Role Phone Jay Howell MD Primary Care Provider [phone] Encounter Details Date Type Department Care Team (Late st Contact Info) Description 08/27/2020 Transcribed Document [facility] [place] [address] [place] [address] ProviderJessie MD [address] [place], [place] [phone] Social History Tobacco Use Types Packs/Day Years Used Date Smoking Tobacco: Never Assessed Comments Unknown Sex and Gender Information Value Date Recorded Sex Assigned at Not on file Legal Sex Female 7:30 PM CDT Gender Identity Not on file Sexual Orientation Not on file documented as of this encounter Miscellaneous Notes * [employer]ner Conversion Note - Historical ProviderMD - 08/27/2020 3:14 PM 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 Evaluation, Physical Therapy Entered On: 08/29/2020 12:09 EST Performed On: 08/29/2020 10:38 EST by ERIC OH, PT General Information, PT Therapy Diagnosis, PT : assessment for need for skilled PTx --- NONE at this time Onset of Problem, PT : 08/27/2020 EST Co-treated by, PT : Other: OTx Student General Information Comment, PT : 79 yo female adm to [facility] 08/25 with L LE Hematoma and Cellulitis HAD SURGERY 08/26 for ARTERIOGRAM with L LE DEBRIDEMENT with WOUND VAC PLACEMENT pt had had a fall at home, seen in ED twice with pain/redness reid prior to full admission PMHx significant for CAD (CABG/STENTS), COPD, DM, HTN, HLD, Remote hx of Femur fx with SIMONA ERIC OH, PT - 08/29/2020 13:14 EST Visit Type, PT : Initial evaluation Patient Orders : Order Date Order Ordering MD 08/27/2020 15:14 PT Evaluation and Treatment Ordered By: KAREN PUTNAM PA-C Active Diagnoses : 08/25/2020 12:00 Cellulitis of unspecified part of limb 08/25/2020 12:00 Contusion of left lower leg, initial encounter 08/25/2020 12:00 General medical 08/25/2020 12:00 Medical screening exam Admission Date : 08/25/2020 05:53 Personal Devices : Personal Devices No Devices Recorded Assistive Devices : Assistive Devices No Devices Recorded ERIC OH PT - 08/29/2020 12:09 EST General Status Patient Received Status : Supine in bed Treatment Start Time : 08/29/2020 10:18 EST Patient Left Status : Up in chair, RN/PCT informed, Family/Visitors at bedside, Communication board completed, All needs met and within reach RN/PCT Informed Comment : yes per MAHENDRA Landeros Treatment End Time : 08/29/2020 10:38 EST Treatment Time : 20 Minute(s) Actual Treatment Time : 20 Minute(s) ERIC OH, PT - 08/29/2020 13:14 EST History and Environment Living Situation, Therapy : Home Patient Lives With : Spouse Persons Assisting Patient at Home : Alone, Spouse Professional Skilled Services : None Persons Providing Information : Patient Home Equipment Therapy, PT : zurdo Moise Home Setup : One story Bedroom Location : Main level Bathroom #1 Location : Main level Bathroom #1 Features : Toilet, Tub/Shower Stairs : No Ramp : No ERIC OH PT - 08/29/2020 13:14 EST Prior Level of Function PT GRID Prior LOF Ambulation, Household : Independent Prior LOF Ambulation, Community : Independent Prior LOF Bed Mobility : Independent Prior LOF Toileting : Independent Prior LOF Transfer : Independent ERIC OH PT - 08/29/2020 13:14 EST Intervention Summary O2 Pre-Intervention : room air SpO2 Pre-Intervention : 99 % O2 Post-Intervention : room air SpO2 Post-Intervention : 99 % Therapist Assessment Post-intervention : after amb approx 600 ft ERIC OH, PT - 08/29/2020 13:14 EST Upper Extremity Right UE Active ROM : WFL Right UE Strength : WFL Left UE Active ROM : WFL Left UE Strength : WFL ERIC OH, PT - 08/29/2020 13:14 EST Lower Extremity RLE Active ROM : WFL Right LE Strength : WFL LLE Active ROM : WFL Left LE Strength : WFL Lower Extremity Comment : MMT based on pt's ability to stand and amb independently ERIC OH, PT - 08/29/2020 13:14 EST Functional Mobility Mobility Grid Bed Roll Right : Rehab Complete independence Bed Scooting : Rehab Complete independence Supine to Sit : Rehab Complete independence Sit to Stand : Rehab Complete independence Stand to Sit : Rehab Complete independence ERIC OH, PT - 08/29/2020 13:14 EST Sit to Stand Device : Belt, gait Stand to Sit Device : Belt, gait ERIC OH, PT - 08/29/2020 13:14 EST Gait Training/Assessment, PT Weight Bearing Status : Full Gait Assistance Level : Independent, complete Walking Distance : approx 600 ft Ambulatory Devices : None, Gait belt, Other: IV pole and wound vac pushed/carried by rehab staff Gait Deviations : No ERIC OH, PT - 08/29/2020 13:14 EST Cognition Assessment, PT Orientation : Oriented x 4 Safety/Judgment Comment : good Follows Basic Command Assessment : yes Attention Assessment : Present ERIC OH PT - 08/29/2020 13:14 EST Edu Topics Physical Therapy Education Grid Balance Training : Returns demonstration Bed Mobility Training : Returns demonstration Gait Training : Returns demonstration Role of Physical Therapy : Verbalizes understanding Safety : Returns demonstration Therapeutic Exercises : Verbalizes understanding Transfer Training : Returns demonstration ERIC OH, PT - 08/29/2020 13:14 EST Indication Assesessment, PT Physical Therapy Indicated : No Physical Therapy Not Indicated : Independent, complete, No skilled services ind., Prior level of function Potential Barriers To Therapy : None evident Rehabilitation Potential : At prior level of function ERIC OH, PT - 08/29/2020 13:14 EST Plan of Care, PT PT Tx Plan/Goals Established w Patient : No Reason Tx/Plan Not Established W/ Pt PT : pt completely independent ERIC OH, PT - 08/29/2020 13:14 EST Treatment Note Subjective Comment : agreed to PTx/OTx evals I plan to go home today! Patient's Response to Treatment : good Assessment : good effort and nathaniel to mobility today no skilled needs noted at this time Plan for Treatment : EVAL ONLY DISCHARGE FROM PTx ERIC OH, PT - 08/29/2020 13:14 EST Pain Assessment Pain Scaled Used : 0-10 Pain scale Pain Score Pre-Intervention : 2 Location : Leg, left Onset : Constant ALTHEA EIRC, PT - 08/29/2020 13:14 EST Image 1 - Images currently included in the form version of this document have not been included in the text rendition version of the form. Anticipated Discharge Needs, OT/PT Anticipated Discharge to : Home, with family care Anticipated Home Equipment : None Recommend Continued Therapy at Discharge : No ALTHEA ERIC, PT - 08/29/2020 13:14 EST [place] PT Charges PT Eval Low Complexity : 1 ALTHEA ERIC, PT - 08/29/2020 13:14 EST Electronically signed by Sivan, [facility] Conversion Glost Tile Sorter Cerner at 02/04/2023 1:59 PM CDT documented in this encounter Plan of Treatment Not on file documented as of this encounter Visit Diagnoses Not on filedocumented in this encounter Care Teams Benefits Manager Relationship Specialty Start Date End Date Jay Howell MD [address] [place] [phone] PCP - General Emergency Medicine 11/12/23 documented as of this encounter
--- OUTSIDE RECORDS SUMMARY | 2025-07-12 08:53 | XMS_ITS | Encounter Summary ---
Author Organization [employer] ([place], [place], [place], [place]) Address [address] [place] [address] Care Team Providers Care Inspector Tester Sorter Name Role Phone Jay Howell MD Primary Care Provider [phone] Encounter Details Date Type Department Care Team (Late st Contact Info) Description 07/18/2021 Transcribed Document [facility] [place] [address] [place] [address] ProviderJessie MD [address] [place], [place] [phone] Social History Tobacco Use Types Packs/Day Years Used Date Smoking Tobacco: Never Assessed Comments Unknown Sex and Gender Information Value Date Recorded Sex Assigned at Not on file Legal Sex Female 7:30 PM CDT Gender Identity Not on file Sexual Orientation Not on file documented as of this encounter Miscellaneous Notes * [employer]ner Conversion Note - Historical ProviderMD - 07/18/2021 3:00 PM CDT Broset Violence Assessment Entered On: 07/18/2021 15:21 EDT Performed On: 07/18/2021 15:20 EDT by Rogerio Barr RN Broset Violence Assessment Broset Violence Checklist of Symptoms : None Broset Violence Symptoms Subtotal : 0 Broset Violence Symptoms Indicator : Low risk (0) Rogerio Barr RN - 07/18/2021 15:20 EDT documented in this encounter Plan of Treatment Not on file documented as of this encounter Visit Diagnoses Not on filedocumented in this encounter Care Teams Inspector Tester Sorter Relationship Specialty Start Date End Date Jay Howell MD [address] [place] [phone] PCP - General Emergency Medicine 11/12/23 documented as of this encounter
--- OUTSIDE RECORDS SUMMARY | 2025-07-12 08:53 | XMS_ITS | Encounter Summary ---
Author Organization [employer] ([place], [place], [place], [place]) Address [address] [place] [address] Care Team Providers Care Physician Neonatology Name Role Phone Jay Howell MD Primary Care Provider [phone] Encounter Details Date Type Department Care Team (Late st Contact Info) Description 07/18/2021 Transcribed Document [facility] [place] [address] [place] [id number] ProviderJessie MD [address] [place], [place] [phone] Social History Tobacco Use Types Packs/Day Years Used Date Smoking Tobacco: Never Assessed Comments Unknown Sex and Gender Information Value Date Recorded Sex Assigned at Not on file Legal Sex Female 7:30 PM CDT Gender Identity Not on file Sexual Orientation Not on file documented as of this encounter Miscellaneous Notes * [employer]ner Conversion Note - Jessie ProviderMD - 07/18/2021 3:00 PM CDT ED Assessment Entered On: 07/18/2021 15:21 EDT Performed On: 07/18/2021 15:20 EDT by Rogerio Barr RN ED Quick Look Assessment Level of Consciousness : Alert, Awake Affect/Behavior : Appropriate Orientation : Oriented x 4 Skin Temperature : Warm Skin Description : Normal for ethnicity Rogerio Barr RN - 07/18/2021 15:20 EDT ED General-Functional Assess Information Obtained From : Patient Preferred Communication Mode : Verbal Communication Barrier : None Primary Language : Martiniquais Any Spiritual/Cultural Needs or Requests : No Currently in Unsafe Situation : No Rogerio Barr RN - 07/18/2021 15:20 EDT Social Habits Smoking Status : Former smoker, quit more than 30 days ago Smokeless Tobacco Status : Never Desires Tobacco Cessation Calc : 0 Rogerio Barr RN - 07/18/2021 15:20 EDT Social History (As Of: 07/18/2021 15:21:49 EDT) Tobacco: Smoking Status Former smoker. Comments: [...] Assessment WDL : WDL with exceptions (Comment: complains of chest pain, sr per monitor [Rogerio Barr RN - 07/18/2021 15:20 EDT] ) Rogerio Barr RN - 07/18/2021 15:20 EDT Respiratory Respiratory Assessment WDL : WDL Rogerio Barr RN - 07/18/2021 15:20 EDT Oxygen Therapy Oxygen Therapy Mode : Room air Rogerio Barr RN - 07/18/2021 15:20 EDT Neurologic ASMT, ED Neurologic Assessment WDL : WDL Rogerio Barr RN - 07/18/2021 15:20 EDT documented in this encounter Plan of Treatment Not on file documented as of this encounter Visit Diagnoses Not on filedocumented in this encounter Care Teams Physician Neonatology Relationship Specialty Start Date End Date Jay Howell MD [address] [place] [phone] PCP - General Emergency Medicine 11/12/23 documented as of this encounter
--- OUTSIDE RECORDS SUMMARY | 2025-07-12 08:53 | XMS_ITS | Encounter Summary ---
Author Organization [employer] ([place], [place], [place], [place]) Address [address] [place] [address] Care Team Providers Care Cardiovascular Tech Name Role Phone Jay Howell MD Primary Care Provider [phone] Encounter Details Date Type Department Care Team (Late st Contact Info) Description 07/18/2021 Transcribed Document [facility] [place] Family Medicine [address] [place] [address] ProviderJessie MD [address] [place], [place] [id number] Social History Tobacco Use Types Packs/Day Years Used Date Smoking Tobacco: Never Assessed Comments Unknown Sex and Gender Information Value Date Recorded Sex Assigned at Not on file Legal Sex Female 7:30 PM CDT Gender Identity Not on file Sexual Orientation Not on file documented as of this encounter Miscellaneous Notes * Cerner Conversion Note - Jessie Yuen MD - 07/18/2021 8:22 PM CDT [facility] [address] SKYLER MONTOYA :1940 Visit Time:07/18/2021 Your Visit Summary Your Care Team Primary Provider: OLAYINKA ISSA PA-C Secondary Provider: Your Diagnosis Chest pain Chest pain Elevated INR Medical Information You may obtain a copy [...] When Within 2 to 3 days Comments Recommend hold Coumadin tonight only and have INR rechecked on Tuesday. Return to ER if symptoms worse or different. Where: [address] [place], [place] [phone] (1) Allergies Macrodantin morphine (rash, rash) Immunizations This Visit No Immunizations Found Medications What How Much When Instructions Next Dose acetaminophen (Tylenol 325 mg oral tablet) 2 Tablet(s) Oral Every 4 Hours as needed for Other (See Comment) amLODIPine (Norvasc 10 mg oral tablet) 1 Tablet(s) Oral Every Day atorvastatin (Lipitor 80 mg oral tablet) 1 Tablet(s) Oral At Bedtime brimonidine-timolol ophthalmic (Combigan 0.2%-0.5% ophthalmic solution) 1 Drop(s) Eye Right Every 12 hours carvedilol (carvedilol 6.25 mg oral tablet) 1 Tablet(s) Oral Two Times A Day difluprednate ophthalmic (Durezol 0.05% ophthalmic emulsion) 1 Drop(s) Eye Right Four Times A Day hydrALAZINE (hydrALAZINE 10 mg oral tablet) 1 Tablet(s) Oral Three Times A Day losartan (losartan 100 mg [...] Tablet(s) Oral Two Times A Day warfarin (warfarin 1 mg oral tablet) 3 Tablet(s) Oral Every Day The home medications listed are only as [...] This Visit (last charted value for your 07/18/2021 visit) Hematology 07/18/2021 3:51 PM WBC: 4.8 K/uL -- Normal range between ( 4.5 and 10.5 ) RBC: 3.44 Million/uL -- Normal range between ( 3.93 and 5.22 ) Hct: 33.1 % -- Normal range between ( 34.1 and 44.9 ) Hgb: 11.2 g/dL -- Normal range between ( 11.2 and 15.7 ) Platelet Count: 137 K/uL -- Normal range between ( 163 and 369 ) MCH: 32.6 pg -- Normal range between ( 25.6 and 32.2 ) MCHC: 33.8 Gram/dL -- Normal range between ( 32.2 and 36.5 ) MCV: 96.2 fL -- Normal range between ( 79.0 and 94.8 ) Slide Review: No Eos %: 0.0 % -- Normal range between ( 0.0 and 7.0 ) Union #: 0.50 K/uL -- Normal range between ( 0.16 and 1.00 ) Eos #: 0.00 x10(3)/uL -- Normal range between ( 0.00 and 0.80 ) Union %: 10.4 % -- Normal range between ( 3.0 and 9.0 ) Baso %: 0.4 % -- Normal range between ( 0.0 and 1.5 ) Baso #: 0.02 x10(3)/uL -- Normal range between ( 0.00 and 0.20 ) RDW: 13.1 % -- Normal range between ( 11.7 and 14.9 ) Neut %: 58.3 % -- Normal range between ( 34.0 and 71.0 ) Neut #: 2.81 K/uL -- Normal range between ( 1.56 and 6.13 ) Lymph %: 30.3 % -- Normal range between ( 19.3 and 53.1 ) Lymph #: 1.46 x10(3)/uL -- Normal range between ( 1.00 and 3.90 ) MPV: 11.1 fL -- Normal range between ( 9.4 and 12.4 ) IG#: 0.03 x10(3)/uL -- Normal range between ( 0.00 and 0.05 ) IG%: 0.60 % -- Normal range between ( 0.00 and 0.60 ) Microbiology 07/18/2021 5:10 PM SARS-CoV-2 (COVID19 PCR): Negative General Chemistry 07/18/2021 3:51 PM Creatinine Level: 0.70 mg/dL -- Normal range between ( 0.55 and 1.02 ) Sodium Level: 138 mmol/L -- Normal range between ( 136 and 146 ) Potassium Level: 3.3 mmol/L -- Normal range between ( 3.5 and 5.1 ) Chloride Level: 108 mmol/L -- Normal range between ( 102 and 112 ) Carbon Dioxide Level: 23 mmol/L -- Normal range between ( 21 and 32 ) Anion Gap: 10 -- Normal range between ( 9 and 20 ) Bilirubin Total: 0.6 mg/dL -- Normal range between ( 0.2 and 1.2 ) A/G Ratio: 0.9 -- Normal range between ( 1.1 and 2.5 ) ALT: 32 Units/Liter -- Normal range between ( 13 and 56 ) AST: 31 Units/Liter -- Normal range between ( 5 and 37 ) Globulin: 3.9 Gram/dL -- Normal range between ( 1.5 and 4.5 ) Alk Phos: 73 Units/Liter -- Normal range between ( 27 and 136 ) Bun/Creatinine: 8.6 -- Normal range between ( 8.0 and 20.0 ) Calcium Level: 8.3 mg/dL -- Normal range between ( 8.4 and 10.1 ) eGFR : >60 mL/min/1.73m2 eGFR NonAfrican: >60 mL/min/1.73m2 Glucose Level: 141 mg/dL -- Normal range between ( 74 and 106 ) Blood Urea Nitrogen: 6 mg/dL -- Normal range between ( 7 and 22 ) Protein Total: 7.6 Gram/dL -- Normal range between ( 6.4 and 8.2 ) Albumin Level: 3.7 Gram/dL -- Normal range between ( 3.4 and 5.0 ) Lipase Level: 120 Units/Liter -- Normal range between ( 73 and 393 ) Cardiac Specific Markers 07/18/2021 7:00 PM Troponin I Ultra: <0.015 ng/mL -- Normal range between ( 0.015 and 0.045 ) 07/18/2021 3:51 PM ProBNP: 804 pg/mL -- Normal range between ( 0 and 450 ) Coagulation 07/18/2021 3:51 PM INR: 4.1 -- Normal range between ( 0.9 and 1.2 ) PTT: 44.9 Second(s) -- Normal range between ( 22.0 and 33.0 ) PT: 39.6 Second(s) -- Normal range between ( 9.2 and 12.0 ) Computed Tomography 07/18/2021 7:46 PM CTA Chest PE Protocol: CTA Chest PE Protocol Diagnostic Radiology 07/18/2021 4:08 PM CR Chest 1 Vw Portable: CR Chest 1 Vw Portable Education [employer] Nonspecific Chest Pain, Adult Chest pain can be caused by many different conditions. It can be caused by a condition that is life-threatening and requires treatment right away. It can also be caused by something that is not life-threatening. If you have chest pain, it can be hard to know the difference, so it is important to get help right away to make sure that you do not have a serious condition. Some life-threatening causes of chest pain include: ??? Heart attack. ??? A tear in the body's main blood vessel (aortic dissection). ??? Inflammation around your heart (pericarditis). ??? A problem in the lungs, such as a blood clot (pulmonary embolism) or a collapsed lung (pneumothorax). Some non life-threatening causes of chest pain include: ??? Heartburn. ??? Anxiety or stress. ??? Damage to the bones, muscles, and cartilage that make up your chest wall. ??? Pneumonia or bronchitis. ??? Shingles infection (varicella-zoster virus). Chest pain can feel like: ??? Pain or discomfort on the surface of your chest or deep in your chest. ??? Crushing, pressure, aching, or squeezing pain. ??? Burning or tingling. ??? Dull or sharp pain that is worse when you move, cough, or take a deep breath. ??? Pain or discomfort that is also felt in your back, neck, jaw, shoulder, or arm, or pain that spreads to any of these areas. Your chest pain may come and go. It may also be constant. Your health care provider will do lab tests and other studies to find the cause of your pain. Treatment will depend on the cause of your chest pain. Follow these instructions at home: Medicines ??? Take [id number]-clf-tuwjyan and prescription medicines only as told by your health care provider. ??? If you were prescribed an antibiotic, take it as told by your health care provider. Do not stop taking the antibiotic even if you start to feel better. Lifestyle ??? Rest as directed by your health care provider. ??? Do not use any products that contain nicotine or tobacco, such as cigarettes and e-cigarettes. If you need help quitting, ask your health care provider. ??? Do not drink alcohol. ??? Make healthy lifestyle choices as recommended. These may include: ? Getting regular exercise. Ask your health care provider to suggest some activities that are safe for you. ? Eating a heart-healthy diet. This includes plenty of fresh fruits and vegetables, whole grains, low-fat (lean) protein, and low-fat dairy products. A dietitian can help you find healthy eating options. ? Maintaining a healthy weight. ? Managing any other health conditions you have, such as high blood pressure (hypertension) or diabetes. ? Reducing stress, such as with yoga or relaxation techniques. General instructions ??? Pay attention to any changes in your symptoms. Tell your health care provider about them or any new symptoms. ??? Avoid any activities that cause chest pain. ??? Keep all follow-up visits as told by your health care provider. This is important. This includes visits for any further testing if your chest pain does not go away. Contact a health care provider if: ??? Your chest pain does not go away. ??? You feel depressed. ??? You have a fever. Get help right away if: ??? Your chest pain gets worse. ??? You have a cough that gets worse, or you cough up blood. ??? You have severe pain in your abdomen. ??? You faint. ??? You have sudden, unexplained chest discomfort. ??? You have sudden, unexplained discomfort in your arms, back, neck, or jaw. ??? You have shortness of breath at any time. ??? You suddenly start to sweat, or your skin gets clammy. ??? You feel nausea or you vomit. ??? You suddenly feel lightheaded or dizzy. ??? You have severe weakness, or unexplained weakness or fatigue. ??? Your heart begins to beat quickly, or it feels like it is skipping beats. These symptoms may represent a serious problem that is an emergency. Do not wait to see if the symptoms will go away. Get medical help right away. Call your local emergency services (911 in the [place] Do not drive yourself to the hospital. Summary ??? Chest pain can be caused by a condition that is serious and requires urgent treatment. It may also be caused by something that is not life-threatening. ??? If you have chest pain, it is very important to see your health care provider. Your health care provider may do lab tests and other studies to find the cause of your pain. ??? Follow your health care provider's instructions on taking medicines, making lifestyle changes, and getting emergency treatment if symptoms become worse. ??? Keep all follow-up visits as told by your health care provider. This includes visits for any further testing if your chest pain does not go away. This information is not intended to replace advice given to you by your health care provider. Make sure you discuss any questions you have with your health care provider. Document Revised: 04/05/2019 Document Reviewed: 04/05/2019 [employer] Patient Education ?? 2020 [employer]. Emergency Awareness and Preventative Care STROKE is [...] Assistance with quitting is available by contacting 0-457-OJEK-NOW. This is a free resource providing counseling, [...] was given the opportunity to ask questions. Patient/Learning Support Teacher Name: Patient/Learning Support Teacher Signature: Relationship to Patient: Clinician/Hospital Learning Support Teacher Signature: Please Provide a Telephone Number Where You Can Be Reached: Is it Permissible To Leave a Message? Date: documented in this encounter Plan of Treatment Not on file documented as of this encounter Visit Diagnoses Not on filedocumented in this encounter Care Teams Cardiovascular Tech Relationship Specialty Start Date End Date Jay Howell MD [address] [place] [phone] PCP - General Emergency Medicine 11/12/23 documented as of this encounter
--- OUTSIDE RECORDS SUMMARY | 2025-07-12 08:53 | XMS_ITS | Encounter Summary ---
Author Organization [employer] ([place], [place], [place], [place]) Address [address] [place] [address] Care Team Providers Care Clinical Trials Assistant Name Role Phone Jay Howell MD Primary Care Provider [phone] Encounter Details Date Type Department Care Team (Late st Contact Info) Description 03/19/2021 Transcribed Document [facility] [place] Family Medicine [facility] [place] [address] ProviderJessie MD [address] [place], [place] [id number] Social History Tobacco Use Types Packs/Day Years Used Date Smoking Tobacco: Never Assessed Comments Unknown Sex and Gender Information Value Date Recorded Sex Assigned at Not on file Legal Sex Female 7:30 PM CDT Gender Identity Not on file Sexual Orientation Not on file documented as of this encounter Miscellaneous Notes * Cerner Conversion Note - Historical ProviderMD - 03/19/2021 12:00 AM CDT Pain Assessment Entered On: 03/19/2021 2:30 EDT Performed On: 03/19/2021 0:59 EDT by Sarah Vivar Non Emp RN Intervention Information: oxyCODONE Performed by Sarah Vivar Non Emp RN on 03/18/2021 23:59:00 EDT oxyCODONE,5mg Oral Pain Assessment Pain Assessment : Follow-up assessment Pain Scale Goal : 5 Pain Scale Used : 0-10 Scale Sarah Vivar Non Emp RN - 03/19/2021 2:29 EDT Pain Scale Intensity : 3 Sarah Vivar P, Non Emp RN - 03/19/2021 2:29 EDT Image 4 - Images currently included in the form version of this document have not been included in the text rendition version of the form. Electronically signed by Sivan, [facility] Conversion Tool And Die Designer Cerner at 02/04/2023 2:13 PM CDT documented in this encounter Plan of Treatment Not on file documented as of this encounter Visit Diagnoses Not on filedocumented in this encounter Care Teams Clinical Trials Assistant Relationship Specialty Start Date End Date Jay Howell MD [address] [place] [phone] PCP - General Emergency Medicine 11/12/23 documented as of this encounter
--- OUTSIDE RECORDS SUMMARY | 2025-07-12 08:53 | XMS_ITS | Encounter Summary ---
Author Organization [facility] Address [address] [place] [address] Care Team Providers Care Almond Cutting Machine Tender Name Role Phone Jay Howell MD Primary Care Provider [phone] Reason for Visit * Reason Onset Date Comments DR. DUMAS - SCHEDULING REQUEST 07/02/2025 Encounter Details Date Type Department Care Team (Late st Contact Info) Description 07/02/2025 Telephone [facility] CARDIOLOGY [address] [place] [phone] Jduie Dumas MD [address] [place] [address] DR. 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 PATIENT WOULD LIKE TO BE SEEN [place] AND CAN SEND ANY RELEVANT RECORDS FROM CARE WHILE SHE WAS AWAY. documented in this encounter Plan of Treatment Not on file documented as of this encounter Visit Diagnoses Not on filedocumented in this encounter Care Teams Almond Cutting Machine Tender Relationship Specialty Start Date End Date Jay Howell MD [address] [place] [address] PCP - General Emergency Medicine 04/28/23 documented as of this encounter
--- OUTSIDE RECORDS SUMMARY | 2025-07-12 08:53 | XMS_ITS | Encounter Summary ---
Author Organization [employer] ([place], [place], [place], [place]) Address [address] [place] [address] Care Team Providers Care Insecticide Sprayer Name Role Phone Jay Howell MD Primary Care Provider [phone] Encounter Details Date Type Department Care Team (Late st Contact Info) Description 07/18/2021 Transcribed Document [facility] [place] Family Medicine [address] [place] [id number] ProviderJessie MD [address] [place] [id number] Social History Tobacco Use Types Packs/Day Years Used Date Smoking Tobacco: Never Assessed Comments Unknown Sex and Gender Information Value Date Recorded Sex Assigned at Not on file Legal Sex Female 7:30 PM CDT Gender Identity Not on file Sexual Orientation Not on file documented as of this encounter Miscellaneous Notes * Cerner Conversion Note - Historical ProviderMD - 07/18/2021 3:57 PM CDT Patient: SKYLER MONTOYA Age: 80 years Sex: Female : 1940 Associated Diagnoses: Chest pain; Elevated INR Author: OLAYINKA ISSA PA-C Basic Information Time seen: Date & time 07/18/2021 15:47:00. History source: Patient. Arrival mode: Private vehicle. History limitation: None. Additional information: Chief Complaint from Nursing Triage Note : Chief Complaint 07/18/2021 15:10 EDT Chief Complaint CP, neck pain, left arm tingling times 3 days. hx CABG 1992 . History of Present Illness The patient presents with chest pain. The onset was 2 days ago. The course/duration of symptoms is episodic and fluctuating in intensity. Location: generalized. Radiating pain: left arm. left side of the neck. The character of symptoms is dull. The degree at onset was minimal. The degree at maximum was minimal. The degree at present is none. The exacerbating factor is none. The relieving factor is none. Risk factors consist of coronary artery disease and hypertension. Prior episodes: none. Therapy today None. Associated symptoms: anxiety, denies shortness of breath, denies nausea, denies vomiting, denies diaphoresis and denies palpitations. Review of Systems Constitutional symptoms: Negative except as documented in HPI. Skin symptoms: Negative except as documented in HPI. ENMT symptoms: Negative except as documented in HPI. Respiratory symptoms: Negative except as documented in HPI. Cardiovascular symptoms: Chest pain. Gastrointestinal symptoms: Negative except as documented in [...] Medical history Reviewed as documented in chart. Cardiovascular: coronary artery disease, hypertension, atrial fibrillation. Surgical history: Cardiac Stent on 12/20/2018 at 77 Years. Comments: 03/17/2021 9:03 EVA LAWS RN HARVINDER to LAD Cardiac Stent in 2010 at 70 Years. Cardiac Stent on 01/30/2008 at 67 Years. Comments: 06/13/2020 8:52 EVA LAWS RN PCI w/ Mccamey stent to D1 Coronary artery bypass graft ([id number]) in 1992 at 52 Years. femur repair. Appendectomy ([id number]). uterine suspension. Hysterectomy ([id number]). back surgury. Cholecystectomy ([id number]). Hip replacement ([id number]). cataract surgury.. Family history: Cardiomyopathy Child Stroke [...] Physical Examination Vital Signs Vital Signs/Vital Measures 07/18/2021 15:20 EDT Oxygen Therapy Mode Room air 07/18/2021 15:10 EDT Systolic Blood Pressure 147 mmHg HI Diastolic Blood Pressure 64 mmHg Temperature Source Temporal artery scanning Temperature Mode Fahrenheit Temperature, Fahrenheit 98.2 Deg F Clinical Temperature, C 36.8 Deg C Peripheral Pulse Rate 60 bpm Respiratory Rate 18 Breaths/Min Oxygen Saturation 99 % Oxygen Therapy Mode Room air . Measurements 07/18/2021 15:10 EDT Height Source Stated Height Entry Format [place] Height/Length, VI[place]ESE (ft) 5 ft Height/Length [place] 3 Inch CLINICALHEIGHT 160.02 cm [place] Body Weight 52.02 kg Weight Source, ED Critical estimated dosing weight Weight Entry Format [place] Weight French lb 154 lb CLINICALWEIGHT 70 kg Body Surface Area (BSA) 1.73 m2 Body Mass Index 27.3 kg/m2 HI . Oxygen Saturation 07/18/2021 15:10 EDT Oxygen Saturation 99 % . General: Alert, no acute distress. Skin: Warm, dry, pink. Head: Normocephalic. Neck: Supple. Eye: Normal conjunctiva. Ears, nose, mouth and throat: Oral mucosa moist. Cardiovascular: Regular rate and rhythm, No murmur, Normal peripheral perfusion, No edema. Respiratory: Lungs are clear to auscultation, respirations are non-labored, breath sounds are equal. Chest wall: No tenderness, No deformity. Back: Nontender. Musculoskeletal: Normal ROM. Gastrointestinal: Soft, Nontender, Non distended. Neurological: Alert and oriented to person, place, time, and situation, normal motor observed, normal speech observed, normal coordination observed. Psychiatric: Cooperative, appropriate mood & affect, normal judgment. Medical Decision Making Differential Diagnosis: Angina, anxiety, atypical chest pain, pneumonia, costochondritis, pleurisy, chest wall pain, bronchitis. Documents reviewed: Emergency department nurses' notes, emergency department records, prior records. Orders Include Previous Orders (Selected) Inpatient Orders Ordered Cardiac Monitoring: EKG: EKG: Isolation: Pulse Oximetry Continuous Monitoring: Completed .Automated Differential: Broset Violence Assessment: CBC w/ Auto Diff: CMP Comprehensive Metabolic Panel: COVID-19: CR Chest 1 Vw Portable: CTA Chest PE Protocol: ED Adult Fall Risk Assessment: ED Adult Triage: ED C-SSRS: ED Clinical Reconciliation: ED Isolation: ED videotape editor: Lipase Level: PT/INR Prothrombin Time: PTT: ProBNP: Saline Lock Insert: Troponin I Ultra: Troponin I Ultra: aspirin: 324 mg, Chew, 1-Time iopamidol: 75 mL, IV Push, ADHOC. Electrocardiogram: Time 07/18/2021 15:21:00, rate 57, normal sinus rhythm, No ST changes, no ectopy, normal CO & QRS intervals, EP Interp. Electrocardiogram: Time 07/18/2021 19:13:00, rate 53, normal sinus rhythm, No ST changes, no ectopy, normal CO & QRS intervals, EP Interp. monitoring manager: Normal sinus rhythm. Results review: All Results 07/18/2021 19:00 EDT Troponin I Ultra <0.015 ng/mL 07/18/2021 17:10 EDT SARS-CoV-2 (COVID19 PCR) Negative 07/18/2021 15:51 EDT Sodium Level 138 mmol/L Potassium Level 3.3 mmol/L LOW Chloride Level 108 mmol/L Carbon Dioxide Level 23 mmol/L Anion Gap 10 Glucose Level 141 mg/dL HI Blood Urea Nitrogen 6 mg/dL LOW Creatinine Level 0.70 mg/dL eGFR >60 mL/min/1.73m2 eGFR NonAfrican >60 mL/min/1.73m2 Bun/Creatinine 8.6 Calcium Level 8.3 mg/dL LOW Protein Total 7.6 Gram/dL Albumin Level 3.7 Gram/dL Globulin 3.9 Gram/dL A/G Ratio 0.9 LOW Bilirubin Total 0.6 mg/dL Alk Phos 73 Units/Liter AST 31 Units/Liter ALT 32 Units/Liter Lipase Level 120 Units/Liter Troponin I Ultra <0.015 ng/mL ProBNP 804 pg/mL HI WBC 4.8 K/uL RBC 3.44 Million/uL LOW Hgb 11.2 g/dL Hct 33.1 % LOW MCV 96.2 fL HI MCH 32.6 pg HI MCHC 33.8 Gram/dL Platelet Count 137 K/uL LOW MPV 11.1 fL RDW 13.1 % Neut % 58.3 % Neut # 2.81 K/uL Lymph % 30.3 % Lymph # 1.46 x10(3)/uL Hardy % 10.4 % HI Hardy # 0.50 K/uL Eos % 0.0 % Eos # 0.00 x10(3)/uL Baso % 0.4 % Baso # 0.02 x10(3)/uL Slide Review No IG# 0.03 x10(3)/uL IG% 0.60 % PT 39.6 Second(s) HI INR 4.1 HI PTT 44.9 Second(s) HI . Radiology results: Radiology Results (Last 48 hours) [id number] -- 07/18/2021 15:00 CR Chest 1 Vw Portable (07/18/2021 16:08) Result: CHEST ONE VIEWHISTORY: Abnormal cardiovascular exam, chest pain.COMPARISON: 03/16/2021FINDINGS: No acute pulmonary opacity is present. Mild interstitialprominence is noted. There is no evidence of effusion or pneumothorax. There is evidence of prior median sternotomy, presumably from CABG. Otherwise, mediastinum is unremarkable.Heart size is normal.IMPRESSION: Unremarkable chest, status post CABG. CTA Chest PE Protocol (07/18/2021 19:46) Result: CTA/PE PROTOCOL CHEST CT: 07/18/2021 4:53 PM CLINICAL INDICATION:Chest pain, shortness of breath.TECHNIQUE: Multiple axial CT images were obtained through the chestfollowing IV contrast utilizing a CTA/PE protocol. 3D/MIP Reconstructionimages were also performed. This study was performed with techniques tokeep radiation doses as low as reasonably achievable, (ALARA).Individualized dose reduction techniques using automated exposurecontrol or adjustment of mA and/or kV according to the patient size wereemployed.COMPARISON:03/18/2021FINDINGS:PA's and Aorta:No pulmonary embolus. Thoracic aorta is normal in caliber. Coronaryartery disease status post CABG.Heart/mediastinum:No evidence for right heart strain. No pericardial effusion.Cardiomegaly.Lungs/Pleura:Clear lungs without suspicious pulmonary nodules or consolidation.Severe centrilobular emphysema. No pneumothorax or pleural effusion.Lymph nodes:No pathologically enlarged thoracic lymph nodes.Chest wall:No acute findings.Bones:No acute fracture.Upper abdomen:No acute findings in the upper abdomen. IMPRESSION:No pulmonary embolus. No acute findings in the chest.Cardiomegaly and coronary artery disease status post CABG.Severe centrilobular emphysema.Images personally reviewed, interpreted and dictated by Hema Capellan . Reexamination/ Reevaluation Time: 07/18/2021 20:13:00 . Course: well controlled, patient feels better. Reports no chest pain and no soa. She thinks she may have been worried about covid. I offered admit if she was having discomfort in her chest and she reports she feels better and would like to go home.. Impression and Plan Diagnosis Chest pain - Discharge, Emergency medicine, Medical Elevated INR - Discharge, Emergency medicine, Medical Plan Condition: Stable. Disposition: Discharged Admit/Transfer/Discharge: Discharge (Order): Start: 07/18/2021 20:18 EDT, Discharge to: Home. Patient was given the following educational materials: Nonspecific Chest Pain, Adult. Follow up with: TARA CHEN Within 2 to 3 days Recommend hold Coumadin tonight only and have INR rechecked on Tuesday. Return to ER if symptoms worse or different.. Counseled: Patient, Regarding diagnosis, Regarding diagnostic results, Regarding treatment plan, Patient indicated understanding of instructions. Notes: I certify that the MLP/MAKEUP SALES ADVISOR performed the services as delegated. . documented in this encounter Plan of Treatment Not on file documented as of this encounter Visit Diagnoses Not on filedocumented in this encounter Care Teams Insecticide Sprayer Relationship Specialty Start Date End Date Jay Howell MD [address] [place] [phone] PCP - General Emergency Medicine 11/12/23 documented as of this encounter
--- OUTSIDE RECORDS SUMMARY | 2025-07-12 08:53 | XMS_ITS | Encounter Summary ---
Author Organization [email or web address] ([place], [place], [place], [place]) Address [address] [place] [address] Care Team Providers Care Strategic Consultant Name Role Phone Jay Howell MD Primary Care Provider [phone] Encounter Details Date Type Department Care Team (Late st Contact Info) Description 03/19/[address] [facility] [place] Family Medicine [facility] [address] ProviderJessie MD [address] [place], [place] [id number] Social History Tobacco Use Types Packs/Day Years Used Date Smoking Tobacco: Never Assessed Comments Unknown Sex and Gender Information Value Date Recorded Sex Assigned at Not on file Legal Sex Female 7:30 PM CDT Gender Identity Not on file Sexual Orientation Not on file documented as of this encounter Miscellaneous Notes * Cerner Conversion Note - Historical ProviderMD - 03/19/2021 2:36 PM CDT Patient: SKYLER MONTOYA Age: 80 Years Sex: Female : 1940 Subjective Patient has not had any more episodes of syncope. She did have a brief episode of dizziness earlier today. PT worked with patient yesterday and noted the following : Gait Assistance Level : Supervision Walking Distance [...] for safety but no overt LOB observed. Review of Systems Ortho - Dr. Guzman of Ortho is recommending the following regarding the right wrist fracture ( a comminuted, intra-articular distal radial fracture and an ulnar styloid fracture ) : 1. The patient may benefit from ORIF, but this is not urgent, and will not be performed during this hospitalization. 2. The patient is an appropriate immobilization for the time being. 3. Recommend follow-up with Dr. Comer, or Anabell once discharged, later this week. They can discuss the risks and benefits of surgery at that time. Objective Vitals & Measurements T: 36.9 ??C TMIN: 36.9 ??C TMAX: 37.6 ??C HR: 68(Monitored) RR: 18 BP: 133/46 SpO2: 93% Physical Exam EOMI Speech - fluent No drift in left arm. TESTS Orthostatics were checked by nursing staff : Her systolic blood pressure remained in the 130s while lying , sitting and standing. Cranial MRI : Within normal limits for age without any signs of acute ischemia. CTA Chest : Emphysema. No pulmonary embolism or other acute abnormality. No subclavian vein occlusion is identified. CTA neck : IMPRESSION: 1. Extensive calcifications are noted. There is calcification of the carotid bifurcations bilaterally with probable focal 70-75% stenosis of the proximal right internal carotid artery just past the origin . There is stenosis involving the left internal carotid artery origin as well. ( The degree of calcification limits evaluation of the left ICA but there appears to be some focal stenosis of the left internal carotid artery ) . 2. Calcification of the vertebral origins with [id number] stenosis. 3. Extensive vascular calcification. 4. Severe centrilobular emphysema. CTA HEAD : IMPRESSION: 1. Unremarkable anterior middle cerebral artery circulation with no stenosis or aneurysm. 2. Proximal posterior cerebral artery stenoses bilaterally. 3. No intracranial aneurysm. I have reviewed the CTAs with the radiologist . The patient may have some mild non significant narrowing of the left subclavian artery just distal to the origin of the left vertebral artery. The degree of calcification of the ICAs makes it difficult to quantify the degree of stenoses of the bilateral ICAs. Assessment/Plan Skyler Montoya is an 80-year-old with multiple medical problems including diabetes, coronary artery disease, atrial fibrillation, and a hip replacement, who had an episode of syncope on March 16 . The episode of syncope resulted in fractures of her distal right radius and right ulnar styloid for which she has currently immobilized. The patient is on long standing Coumadin. This episode of syncope had been preceded by a feeling of vertigo and nausea . A carotid ultrasound suggests left subclavian stenosis and bilateral 50 -69% stenosis. However, a CTA of the head and neck does not bear out a left subclavian stenosis . However the CTA of head and neck does show mild to moderate narrowing of the origins of the bilateral vertebral arteries . The CTA of the head and neck also shows heavy calcifications of the bilateral ICAs which makes quantification of the degree of narrowing difficult. The CTA also shows bilateral proximal BONBON DIPPER stenoses. The differential could include one or a combination of the followin. Orthostasis. 2. Cardiac arrhythmia. 3. Cerebrovascular disease, such as a posterior circulation TIA . 4. Seizure. 5. A low flow state to the brain secondary to intracranial and extracranial stenoses as seen on the CTA of head and neck. At this time, I do not know the exact etiology of her syncope and their multiple potential causes. However , I do think it is possible that her diffuse intracranial and extracranial atherosclerosis played a role in her syncope and premonitory symptoms on March 16. At this time, I would recommend the followin. Given the possible stenoses of > or = 70% of both ICAs , consideration could be given to a vascular surgery consult and /or a dedicated cerebral arteriogram. 2. Patient will need to follow up with outpatient orthopedics to continue discussing the risks and benefits of surgery for her right wrist fracture. 3. At discharge, she should follow up with an outpatient neurologist and not drive until released by physician. I have had a long discussion today with both the patient and her regarding the findings on the carotid ultrasound and CTAs. I explained that she has stenoses of both ICAs and vertebral arteries that could have played a role in her symptoms of March 16. I explained that I am unsure of the exact degree of stenosis in the ICAs but the carotid ultrasound does suggest that the degree of blockages may be less than 70% . I explained that consideration could be given to a vascular surgery consult and/or a cerebral arteriogram. However, the patient tells me that even if she had more than 70% stenosis of the ICAs, she would prefer not to consider a CEA at this time. I , therefore , told her to have close follow up with her PCP and specialists regarding these radiologic findings. I explained that she should return to the ER with any more episodes of syncope or stroke like symptoms. I have spent over 35 minutes on this case today . Over half that time was spent reviewing films with the radiology department and counseling patient . I am OK with her going home today. Medications Inpatient atorvastatin, 40 mg= 1 Tab, Oral, At Bedtime carvedilol, 6.25 mg= 1 Tab, Oral, BID Combigan ophthalmic solution, 1 Drop, Eye Right, BID Coumadin, 4 mg= 1 Tab, Oral, Daily Dilaudid, 0.5 mg= 0.5 mL, IV Push, Q4H, PRN DuoNeb 0.5 mg-2.5 mg/3 mL inhalation solution, 3 mL, Nebulized Inhalation , Q6H, PRN hydrALAZINE, 10 mg= 1 Tab, Oral, TID hydrALAZINE, 10 mg= 0.5 mL, IV Push, Q6H, PRN insulin lispro 50 kg - 75 kg, 50 kg - 75 kg scale, SubCutaneous, AC and at Bedtime losartan, 100 mg= 2 Tab, Oral, Daily Normal Saline 1,000 mL, 1000 mL, IntraVENous Norvasc, 10 mg= 1 Tab, Oral, Daily oxyCODONE, 5 mg= 1 Tab, Oral, Q6HInt Phenergan, 6.25 mg= 0.25 mL, IntraVENous, Q6H, PRN Pred Forte 1% ophthalmic suspension, 1 Drop, Eye Right, 8 Times a Day Protonix, 40 mg= 1 Tab, Oral, Daily Ranexa, 1000 mg= 2 Tab, Oral, BID Tylenol, 650 mg= 2 Tab, Oral, Q4H, PRN Xanax, 0.5 mg= 1 Tab, Oral, At Bedtime, PRN Zofran, 4 mg= 2 mL, IV Push, Q4H, PRN documented in this encounter Plan of Treatment Not on file documented as of this encounter Visit Diagnoses Not on filedocumented in this encounter Care Teams Strategic Consultant Relationship Specialty Start Date End Date Jay Howell MD [address] [place] [phone] PCP - General Emergency Medicine 11/12/23 documented as of this encounter
--- OUTSIDE RECORDS SUMMARY | 2025-07-12 08:53 | XMS_ITS | Encounter Summary ---
Author Organization [facility] Address [address] [place] [address] Care Team Providers Care Wafer Machine Operator Name Role Phone Jay Howell MD Primary Care Provider [phone] Reason for Visit * Reason Onset Date Comments ALICE - MEDICAL RECORDS REQUEST 07/02/2025 Encounter Details Date Type Department Care Team (Late st Contact Info) Description 07/02/2025 Telephone [facility] [address] [place] [phone] Brenda Guerrier APRN [address] [place] [address] ALICE - MEDICAL RECORDS REQUEST Social History Tobacco Use Types Packs/Day [...] 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 SHE CAN FILL OUT THE SHARON FORM AT HER APPT IF THEY NEED ANYTHING OTHER THAN WHAT WE CAN SEE. THANKS. * Telephone Encounter - Radha Prince RegSched Rep - 07/02/2025 10:43 AM EDT Caller: Miladis Montoya Relationship: Self Best call back number: [phone] What form or medical record are you requesting: MEDICAL RECORDS. Who is requesting this form or medical record from you: DR FLOR LÓPEZ WITH [facility] IN [place], [place] How would you like to receive the form or medical records (pick-up, mail, fax): FAX If fax, what is the fax number: [phone] Timeframe paperwork needed: [place] - BEFORE APPOINTMENT ON 07.10.25 Additional notes: PATIENT HAS APPOINTMENT WITH [facility] ON 07.10.25 AND NEEDS TO HAVE MEDICAL RECORDS FROM [facility] SENT OVER. HOWEVER, [facility] NEEDS A MEDICAL RECORDS REQUEST FORM FROM THE OFFICE BEFORE THEY ARE WILLING TO FAX THEM TO US. documented in this encounter Plan of Treatment Not on file documented as of this encounter Visit Diagnoses Not on filedocumented in this encounter Care Teams Wafer Machine Operator Relationship Specialty Start Date End Date Jay Howell MD [address] [place] [address] PCP - General Emergency Medicine 04/28/23 documented as of this encounter
--- OUTSIDE RECORDS SUMMARY | 2025-07-12 08:53 | XMS_ITS | Encounter Summary ---
Author Organization [employer] ([place], [place], [place], [place]) Address [address] [place] [address] Care Team Providers Care Leather Repairer Name Role Phone Jay Howell MD Primary Care Provider [phone] Encounter Details Date Type Department Care Team (Late st Contact Info) Description 08/27/2020 Transcribed Document [facility] [place] Medicine [address] [place] [address] ProviderJessie MD [address] [place] [address] Social History Tobacco Use Types Packs/Day Years Used Date Smoking Tobacco: Never Assessed Comments Unknown Sex and Gender Information Value Date Recorded Sex Assigned at Not on file Legal Sex Female 7:30 PM CDT Gender Identity Not on file Sexual Orientation Not on file documented as of this encounter Miscellaneous Notes * Cerner Conversion Note - Jessie Yuen MD - 08/27/2020 5:54 PM MAJOR GIFTS DIRECTOR Patient: SKYLER MONTOYA Age: 79 Years Sex: Female : 1940 Chief Complaint pt to ED from home for leg wound. pt seen here Tuesday for same. pt also c/o nausea that started on the way to ED Reason for Consultation back pain History of Present Illness Ms. Montoya is an 79-year-old female with known history of coronary artery disease,status post CABG; history of multiple stent placements. The patient presented to [facility] ER after recent fall with hematoma required evacuation in our ER on 08/22/2020.She had fallen a few days prior to that visit and sustained a hematoma to the anterior tibial aspect of the lower left leg. patient had the hematoma drained at that time and wound cultures were obtained. patient was put on AB for this. patient then presented to us on 08/25 with complaints of worsening leg pain and worsening appearance of incision site. on 08/26, vascular team took her to OR and performed a left leg debridement and angioplasty. patient has doing well post-operatively, but mentioned she was experiencing back pain since the time of her fall. we were consulted as a result. I spoke with patient today and she reported severe back pain since the time of the fall. She has a history of 3 previous back surgeries, two discectomies and one fusion. The first surgery was a discectomy at age 39 [address]John Barr. The next two surgeries were in 1997 with . She describes her current pain as a 9/10 pain that is constant and dull with intermittent sharp pain. The pain runs diffusely across the lumbar region and down the posterior aspect of the LLE from hip to foot. Patient had not taken anything at home for the pain prior to coming here. Review of Systems Constitutional: [No fevers, chills, sweats] Eye: [No recent visual problems, eye discharge, eye pain, redness] HEENT: [No ear pain, nasal congestion, sore throat, voice changes] Respiratory: [No shortness of breath, cough, pain on breathing, sputum production] Cardiovascular: [No Chest pain, palpitations, syncope, shortness of breath while laying flat] Gastrointestinal: [No nausea, vomiting, diarrhea, constipation] Genitourinary: [No hematuria, dysuria, incontinence, lesions on genitalia] Dirk/Lymph: [Negative for bruising tendency, swollen lymph glands, nosebleeds, history of anticoagulation] Endocrine: [Negative for excessive thirst, excessive hunger, excessive urination, heat or cold intolerance] Musculoskeletal:back pain that radiates to LLE as described in HPI. neck pain, joint pain, muscle pain, decreased range of motion] Integumentary: [No rash, pruritus, abrasions, lesions] Neurologic: [No weakness, numbness, frequent headaches, tremors, blackouts] Psychiatric: [No anxiety, depression, mood changes, hallucinations] Vital Signs T: 36.5 ??C TMIN: 36.5 ??C TMAX: 36.6 ??C HR: 67(Monitored) RR: 18 BP: 169/55 SpO2: 95% Oxygen Settings (Last) Oxygen Therapy Mode: Room air (08/27/20 16:26:00) Oxygen Flow Rate: 2 Liter/Min (08/26/20 14:45:00) Physical Exam General: [Alert and oriented, well nourished, no acute distress]. Neurologic: [Awake, alert, and oriented X3, CN II-XII intact]. Eye: [PERRL, EOMI, normal conjuctiva]. HENT: [Normocephalic, clear tympanic membranes, normal hearing, moist oral mucosa, no scleral icterus, no sinus tenderness]. Neck: [Supple, non-tender, no carotid bruits, no JVD, no lymphadenopathy]. Lungs: [Clear to auscultation and percussion, non-labored respiration]. Heart: [Normal rate, regular rhythm, no murmur, gallop or edema]. Abdomen: [Soft, non-tender, non-distended, normal bowel sounds, no masses]. Musculoskeletal: 3-4/5 strength in BUE. 4/5 strength in RLE. could not assess strength or ROM in LLE due to patient's recent operation to the LLE. Normal range of motion and strength, no tenderness or swelling. reflexes 2+ in BUE and BLE. no TTP over lumbar region]. Skin: patient had multiple bruises on BLE, worse on the LLE. Patient had a wound vac placed on the left leg. Skin is warm, dry and pink, no rashes or lesions]. Psychiatric: [Cooperative, appropriate mood and affect]. radiology: Lumbar MRI w/o: showed previous L4-L5 fusion. small disc protrusion at L3-L4. no central canal or foraminal stenosis. no cord impingement. Assessment/Plan 1. lumbar radiculopathy -patient is an 79 year old with many comorbidities and a neurosurgical hx including an L4-L5 fusion at an unknown time. patient presented to the ED 5 days ago after sustaining an injury to her left tibia after falling a few days prior. It was during her stay that patient mentioned she had back pain after the fall and a lumbar MRI w/o was ordered. After reviewing this, we do not see any acute problems that we need to be concerned of from our standpoint. There is no new evidence of stenosis or cord impingement. i discussed findings with the patient and gave her reassurance that there is nothing to be concerned about. It was recommended that patient follow up with her PCP for any new back pain and wound checks after discharge. VTE Prophylaxis - Medical Clopidogrel 75 mg, Oral, Tab, Daily, Routine, Start 08/27/20 9:00:00 EST, 08/26/20 16:01:00 EST (MURTAUGH, ТАТЬЯНА) Sequential Compression Device Start: 08/25/20 5:51:00 EST, Bilateral, While patient is in bed, Continuous Order (BETH DAVALOS) Provider Information Primary Care Physician - TARA CHEN (REF), -MED Attending Physician - SARAH CONTEH MD Admitting Physician - BETH DAVALOS MD-INT Consulting Physician - KAELA HEBERT MD - Necrotic wound Consulting Physician - KAVITHA HIDALGO MD-INF Consulting Physician - ERMA ZHENG MD-AMALIA Consulting Physician - PRINCESS العلي MD-ANS Consulting Physician - STEPHANIE STOKES MD - radicular back pain Referring Physician - LO HALE MD-EMR Problem List/Past Medical History Ongoing Apnea, sleep Arthritis Atrial fibrillation with RVR Blood clot Cataract Chest pain Chronic anticoagulation Clotting disorder COPD Coronary artery disease Diabetes mellitus Emphysema GERD - Gastro-esophageal reflux disease Glaucoma High blood pressure History of obstructive sleep apnea Hx of pulmonary embolus Hyperlipidemia Multiple renal cysts Stented coronary artery Historical UTI - Urinary tract infection Procedure/Surgical History FLUOROSCOPY OF MULTIPLE CORONARY ARTERIES USING OTH CONTRAST (04/15/2017), MEASURE OF CARDIAC SAMPL & PRESSURE, L HEART, PERC APPROACH (04/15/2017), Cardiac Stent (2010), Cardiac Stent (01/30/2008), Coronary artery bypass graft (1992), Appendectomy, back surgury, cataract surgury, Cholecystectomy, femur repair, Hip replacement, Hysterectomy, uterine suspension. SN - Proc - Procedure: Wound Debridement Lower Extremity (08/26/20 14:22:50) Medications Inpatient acetaminophen, 650 mg= 2 Tab, Oral, Q4H, [...] hydrALAZINE, 100 mg= 2 Tab, Oral, BID Lactated Ringers Injection intravenous solution 1,000 mL, [...] Chloride 0.9% intravenous solution 100 mL Home aspirin 81 mg oral tablet, 81 mg= 1 Tab, Oral, Daily atorvastatin 80 mg oral tablet, 80 mg= 1 Tab, Oral, At Bedtime Bactroban 2% topical ointment, 1 Application, Topical, TID carvedilol 6.25 mg oral tablet, 6.25 mg= 1 Tab, Oral, TID clindamycin 300 mg oral capsule, 300 mg= 1 Cap, Oral, QID Coumadin 1 mg oral tablet, 1 mg= 1 Tab, Oral, TuThSaSu dorzolamide 2% ophthalmic solution, 1 Drop, Eye Right, BID hydrALAZINE 10 mg oral tablet, 10 mg= 1 Tab, Oral, TID losartan 100 mg oral tablet, 100 mg= 1 Tab, Oral, Daily metFORMIN 500 mg oral tablet, extended release, 500 mg= 1 Tab, Oral, BID With Meals Multiple Vitamins oral tablet, 1 Tab, Oral, Daily W[place]rop 7.5 mg-325 mg oral tablet, 1 Tab, Oral, Q6H, PRN Norvasc 10 mg oral tablet, 10 mg= 1 Tab, Oral, Daily omeprazole 40 mg oral delayed release capsule, 40 mg= 1 Cap, Oral, Daily Ranexa 500 mg oral tablet, extended release, 1000 mg= 2 Tab, Oral, BID warfarin, 1.5 mg, Oral, MoWeFr Xanax 0.5 mg oral tablet, 0.5 mg= [...] Sister and Brother. Leukemia: Child. Stroke: Brother. Lab Results Test Name Test Result Date/Time [...] EST Device Comment 1 Protocols Followed 08/27/2020 16:24 EST Device Comment 1 Protocols Followed 08/27/2020 10:51 EST Device Comment 1 Notified Nurse RBV 08/27/2020 05:24 EST Device Comment 1 Notified Nurse RBV 08/26/2020 21:08 EST Glucose POC2 145 mg/dL (High) 08/27/2020 16:24 EST Glucose POC2 122 mg/dL (High) 08/27/2020 [...] (High) 08/27/2020 08:41 EST Electronically signed by [facility], [facility] Conversion Owner Operator Tanker Truck Driver Cerner at 02/04/2023 2:05 PM CDT documented in this encounter Plan of Treatment Not on file documented as of this encounter Visit Diagnoses Not on filedocumented in this encounter Care Teams Leather Repairer Relationship Specialty Start Date End Date Jay Howell MD [address] [place] [phone] PCP - General Emergency Medicine 11/12/23 documented as of this encounter
--- OUTSIDE RECORDS SUMMARY | 2025-07-12 08:53 | XMS_ITS | Encounter Summary ---
Author Organization [employer] ([place], [place], [place], [place]) Address [address] [place] [address] Care Team Providers Care Executive Kitchen Manager Name Role Phone Jay Howell MD Primary Care Provider [phone] Encounter Details Date Type Department Care Team (Late st Contact Info) Description 08/27/2020 Transcribed Document [facility] [place] [address] [place] [address] ProviderJessie MD [address] [place] [address] Social History Tobacco Use Types Packs/Day Years Used Date Smoking Tobacco: Never Assessed Comments Unknown Sex and Gender Information Value Date Recorded Sex Assigned at Not on file Legal Sex Female 7:30 PM CDT Gender Identity Not on file Sexual Orientation Not on file documented as of this encounter Miscellaneous Notes * Cerner Conversion Note - Historical ProviderMD - 08/27/2020 2:00 AM OCCUPATIONAL HEALTH NURSE MANAGER Superintendent Construction Details Entered On: 08/27/2020 1:36 EST Performed On: 08/27/2020 2:00 EST by Madhavi Reyes RN-RESOURCE Order Details Isolation Precautions Order Detail : Standard Precautions Order Detail : N/A IV Order Detail : 1 Oxygen Order Detail : 0 Nurse Collect Order Detail : 0 Lift/Transfer : Independent Central Line Order Detail : No Room Service : Not Appropriate Arterial Line : No Patient Needs Meds Crushed/Liquid : No Madhavi Reyes RN-RESOURCE - 08/27/2020 1:36 EST Electronically signed by Sivan [facility] Conversion Clinical Appeals Reviewer Cerner at 02/04/2023 2:19 PM CDT documented in this encounter Plan of Treatment Not on file documented as of this encounter Visit Diagnoses Not on filedocumented in this encounter Care Teams Executive Kitchen Manager Relationship Specialty Start Date End Date Jay Howell MD [address] [place] [phone] PCP - General Emergency Medicine 11/12/23 documented as of this encounter
--- OUTSIDE RECORDS SUMMARY | 2025-07-12 08:53 | XMS_ITS | Encounter Summary ---
Author Organization [employer] ([place], [place], [place], [place]) Address [address] [place] [address] Care Team Providers Care Mailing Machine Helper Name Role Phone Jay Howell MD Primary Care Provider [phone] Encounter Details Date Type Department Care Team (Late st Contact Info) Description 03/19/2021 Transcribed Document [facility] [place] Family Medicine [address] [place] [address] ProviderJessie MD [address] [place] [address] Social History Tobacco Use Types Packs/Day Years Used Date Smoking Tobacco: Never Assessed Comments Unknown Sex and Gender Information Value Date Recorded Sex Assigned at Not on file Legal Sex Female 7:30 PM CDT Gender Identity Not on file Sexual Orientation Not on file documented as of this encounter Miscellaneous Notes * Cerner Conversion Note - Jessie Yuen MD - 03/19/2021 2:50 PM CDT [facility] [address] SKYLER MONTOYA :1940 Visit Time:03/17/2021 Your Visit Summary Your Care Team Admitting Physician - MARIA ELENA DAVALOS MD-[facility] Attending Physician - SARAH CONTEH MD Primary Care Physician - TARA CHEN (REF), -MED Referring Physician - Sherman, SELF REFERRED Your Diagnosis Back strain Right wrist fracture Syncope, Syncope and collapse, Syncope and collapse Syncope/Near syncope Discharge Vitals Temperature 36.9 ??C Heart Rate (Monitored) 68 Blood Pressure 133/46 What to do next Instructions From Your Care Team Discharge Follow Up Instructions: Follow Up Instructions: f/u Dr. Carrasco or [facility] ( Hand Surgery) on d/c. [phone] Activity: Discharge Activity: Activity as tolerated Diet: Discharge Diet: Heart healthy diet Driving Restriction: Do Not Drive due to fainting episode until your doctor says you can Follow-Up Appointments Follow Up with ANDERSON CARRASCO MD When Within 3 to 5 days Comments for ortho eval for fracture wrist Where: [address] [address]- Follow Up with WOO JOHNSTON When Within 2 to 4 weeks Where: [address] [address] [place] [address]- Business (1) Follow Up with JEFFERSON MENDOZA When Within 6 weeks Comments Patient should call for a follow up appointment with [facility] Neurology. Where: [address] [place] [address]- Business (1) Medications What How Much When Instructions Next Dose acetaminophen (Tylenol 325 mg oral tablet) 2 Tablet(s) Oral Every 4 Hours as needed for Other (See Comment) oxyCODONE (oxyCODONE 5 mg oral tablet) 1 Tablet(s) Oral Interval Every 6 Hours Duration: 3 Day(s) Printed Prescription amLODIPine (Norvasc 10 mg oral tablet) 1 Tablet(s) Oral Every Day atorvastatin (Lipitor 80 mg oral tablet) 1 Tablet(s) Oral At Bedtime hydrALAZINE (hydrALAZINE 10 mg oral tablet) 1 Tablet(s) Oral Three Times A Day ranolazine (Ranexa 500 mg oral tablet, extended release) 2 Tablet(s) Oral Two Times A Day warfarin (warfarin 1 mg oral tablet) 3 Tablet(s) Oral Every Day brimonidine-timolol ophthalmic (Combigan [...] release capsule) 1 Capsule(s) Oral Every Day Take your medications faithfully. Do NOT skip [...] pharmacy guidance. Allergies Macrodantin morphine (rash, rash) Immunizations This Visit No Immunizations Found Education Materials Cast or Splint Care, Adult Casts and [...] activities are safe for you. ??? Take [id number]-[id number] and prescription medicines only as told by [...] provider. Document Revised: 07/31/2018 Document Reviewed: 03/26/2017 [employer] Patient Education ?? 2020 [employer] Near-Syncope Near-syncope is when you suddenly get [...] these instructions at home: Medicines ??? Take [id number] and prescription medicines only as told by [...] provider. Document Revised: 01/25/2020 Document Reviewed: 08/22/2019 Elsevier Patient Education ?? 2020 [employer]. Emergency Awareness and Preventative Care STROKE is [...] Assistance with quitting is available by contacting 6-296-MFXQ-NOW. This is a free resource providing counseling, [...] This Visit (last charted value for your 03/17/2021 visit) Hematology 03/19/2021 10:45 AM WBC: 6.6 K/uL -- Normal range between ( 4.5 and 10.5 ) RBC: 2.92 Million/uL -- Normal range between ( 3.93 and 5.22 ) Hct: 28.4 % -- Normal range between ( 34.1 and 44.9 ) Hgb: 9.4 g/dL -- Normal range between ( 11.2 and 15.7 ) Platelet Count: 111 K/uL -- Normal range between ( 163 and 369 ) MCH: 32.2 pg -- Normal range between ( 25.6 and 32.2 ) MCHC: 33.1 Gram/dL -- Normal range between ( 32.2 and 36.5 ) MCV: 97.3 fL -- Normal range between ( 79.0 and 94.8 ) Slide Review: No Eos %: 0.0 % -- Normal range between ( 0.0 and 7.0 ) Granite #: 0.59 K/uL -- Normal range between ( 0.16 and 1.00 ) Eos #: 0.00 x10(3)/uL -- Normal range between ( 0.00 and 0.80 ) Granite %: 8.9 % -- Normal range between ( 3.0 and 9.0 ) Baso %: 0.2 % -- Normal range between ( 0.0 and 1.5 ) Baso #: 0.01 x10(3)/uL -- Normal range between ( 0.00 and 0.20 ) RDW: 12.8 % -- Normal range between ( 11.7 and 14.9 ) Neut %: 73.3 % -- Normal range between ( 34.0 and 71.0 ) Neut #: 4.85 K/uL -- Normal range between ( 1.56 and 6.13 ) Lymph %: 17.1 % -- Normal range between ( 19.3 and 53.1 ) Lymph #: 1.13 x10(3)/uL -- Normal range between ( 1.00 and 3.90 ) MPV: 10.8 fL -- Normal range between ( 9.4 and 12.4 ) IG#: 0.03 x10(3)/uL -- Normal range between ( 0.00 and 0.05 ) IG%: 0.50 % -- Normal range between ( 0.00 and 0.60 ) Urinalysis 03/17/2021 4:10 AM Ur RBC: 0-2 /HPF Urine Nitrite: Negative Urine Leukocyte Esterase: Negative Urine Appearance: Clear Urine Glucose Dipstick: Negative Urine Blood Dipstick: Negative Urine Urobilinogen Dipstick: 0.2 EU/dL Urine Protein Dipstick: 30 Ur Bacteria: Trace Ur Squamous Epithelial Cells: 2-5 /HPF Urine Color: Yellow Ur WBC: 0-2 /HPF Urine Ketones Dipstick: Negative Urine pH Dipstick: 5.5 -- Normal range between ( 6.0 and 8.0 ) Ur Hyaline Casts: 0-2 /LPF Urine Bilirubin Dipstick: Negative Urine Specific Monroe: 1.015 -- Normal range between ( 1.005 and 1.030 ) Urine Type.: U CleanCatch Urine Culture if Indicated: Not Indicated Microbiology 03/16/2021 3:20 PM SARS-CoV-2 (COVID19 PCR): Negative General Chemistry 03/19/2021 10:45 AM Creatinine Level: 0.60 mg/dL -- Normal range between ( 0.55 and 1.02 ) Sodium Level: 136 mmol/L -- Normal range between ( 136 and 146 ) Potassium Level: 3.8 mmol/L -- Normal range between ( 3.5 and 5.1 ) Chloride Level: 106 mmol/L -- Normal range between ( 102 and 112 ) Carbon Dioxide Level: 25 mmol/L -- Normal range between ( 21 and 32 ) Anion Gap: 9 -- Normal range between ( 9 and 20 ) Bilirubin Total: 0.8 mg/dL -- Normal range between ( 0.2 and 1.2 ) A/G Ratio: 0.7 -- Normal range between ( 1.1 and 2.5 ) ALT: 24 Units/Liter -- Normal range between ( 13 and 56 ) AST: 25 Units/Liter -- Normal range between ( 5 and 37 ) Globulin: 3.8 Gram/dL -- Normal range between ( 1.5 and 4.5 ) Alk Phos: 66 Units/Liter -- Normal range between ( 27 and 136 ) Bun/Creatinine: 20.0 -- Normal range between ( 8.0 and 20.0 ) Calcium Level: 8.4 mg/dL -- Normal range between ( 8.4 and 10.1 ) eGFR : >60 mL/min/1.73m2 eGFR NonAfrican: >60 mL/min/1.73m2 Glucose Level: 187 mg/dL -- Normal range between ( 74 and 106 ) Blood Urea Nitrogen: 12 mg/dL -- Normal range between ( 7 and 22 ) Protein Total: 6.6 Gram/dL -- Normal range between ( 6.4 and 8.2 ) Albumin Level: 2.8 Gram/dL -- Normal range between ( 3.4 and 5.0 ) 03/19/2021 5:54 AM Glucose POC2: 99 mg/dL -- Normal range between ( 70 and 110 ) Device Comment 1: Device Comment 1 03/18/2021 5:19 AM Calcium Ionized: 1.14 mmol/L -- Normal range between ( 1.12 and 1.32 ) Magnesium Level: 2.0 mg/dL -- Normal range between ( 1.5 and 2.4 ) 03/17/2021 9:52 AM Hgb A1C: 6.3 % eAVG Glucose: 134 mg/dL 03/17/2021 3:42 AM Lactic Acid Level: 0.8 mmol/L -- Normal range between ( 0.4 and 2.0 ) 03/16/2021 11:38 AM Lipase Level: 105 Units/Liter -- Normal range between ( 73 and 393 ) Cardiac Specific Markers 03/17/2021 4:03 PM Troponin I Ultra: <0.015 ng/mL -- Normal range between ( 0.015 and 0.045 ) 03/17/2021 3:42 AM ProBNP: 576 pg/mL -- Normal range between ( 0 and 450 ) Coagulation 03/19/2021 6:06 AM INR: 2.1 -- Normal range between ( 0.9 and 1.2 ) PT: 21.0 Second(s) -- Normal range between ( 9.2 and 12.0 ) 03/16/2021 11:44 AM PTT: 34.1 Second(s) -- Normal range between ( 22.0 and 33.0 ) Lipid Studies 03/18/2021 5:19 AM Cholesterol Tot: 119 mg/dL -- Normal range between ( 0 and 199 ) Cholesterol HDL: 42.0 mg/dL Cholesterol LDL Calculation: 57.8 mg/dL -- Normal range between ( 0.0 and 99.0 ) Cholesterol VLDL Calculation: 19.2 mg/dL -- Normal range between ( 5.0 and 40.0 ) Cholesterol/HDL Ratio: 2.8 -- Normal range between ( 0.0 and 3.2 ) Triglyceride: 96 mg/dL -- Normal range between ( 0 and 249 ) LDL/HDL Ratio: 1.4 -- Normal range between ( 0.0 and 3.2 ) Endocrinology 03/16/2021 5:35 PM Procalcitonin: <0.25 ng/mL -- Normal range between ( 0.00 and 2.00 ) Computed Tomography 03/18/2021 3:30 PM CTA Chest: CTA Chest CTA Head: CTA Head CTA Neck: CTA Neck 03/16/2021 1:[address] Abdomen Pelvis WO: CT Abdomen Pelvis WO CT Head WO: CT Head WO CT Spine Cervical WO: CT Spine Cervical WO CT Spine Lumbar WO: CT Spine Lumbar WO Diagnostic Radiology 03/19/2021 7:58 AM CR Hip Uni Comp Min 2 Vws LT: CR Hip Uni Comp Min 2 Vws LT 03/19/2021 7:48 AM CR Femur 2 Vws LT: CR Femur 2 Vws LT 03/18/2021 4:05 PM CR Knee Min 4 Vws LT: CR Knee Min 4 Vws LT 03/18/2021 2:48 PM CR Femur 2 Vws RT: CR Femur 2 Vws RT 03/16/2021 12:36 PM CR Chest 1 Vw Portable: CR Chest 1 Vw Portable 03/16/2021 12:13 PM CR Wrist Min 3 Vws RT: CR Wrist Min 3 Vws RT 03/16/2021 12:03 PM CR Hip Uni Comp Min 2 Vws RT: CR Hip Uni Comp Min 2 Vws RT Magnetic Resonance Imaging 03/18/2021 3:02 PM MRI Brain WO: MRI Brain WO Echo 03/17/2021 1:51 PM EC Echo Complete: EC Echo Complete Vascular Ultrasound 03/17/2021 11:01 AM VL Carotid Duplex BILAT: VL Carotid Duplex BILAT Patient Name:SKYLER MONTOYA Rajat Sharifa have received and understand this information and was given the opportunity to ask questions. Patient/Wool Puller Name: Patient/Wool Puller Signature: Relationship to Patient: Clinician/Hospital Wool Puller Signature: Date: Electronically signed by Sivan, [facility] Conversion Teradata Architect Cerner at 02/04/2023 2:18 PM CDT documented in this encounter Plan of Treatment Not on file documented as of this encounter Visit Diagnoses Not on filedocumented in this encounter Care Teams Mailing Machine Helper Relationship Specialty Start Date End Date Jay Howell MD [address] [place] [phone] PCP - General Emergency Medicine 11/12/23 documented as of this encounter
--- OUTSIDE RECORDS SUMMARY | 2025-07-12 08:53 | XMS_ITS | Encounter Summary ---
Author Organization [employer] ([place], [place], [place], [place]) Address [address] [place] [address] Care Team Providers Care Unloading Checker Name Role Phone Jay Howell MD Primary Care Provider [phone] Encounter Details Date Type Department Care Team (Late st Contact Info) Description 03/19/2021 Transcribed Document [facility] [place] Family Medicine [facility] [place] [address] ProviderJessie MD [address] [place] [id number] Social History Tobacco Use Types Packs/Day Years Used Date Smoking Tobacco: Never Assessed Comments Unknown Sex and Gender Information Value Date Recorded Sex Assigned at Not on file Legal Sex Female 7:30 PM CDT Gender Identity Not on file Sexual Orientation Not on file documented as of this encounter Miscellaneous Notes * Cerner Conversion Note - Jessie ProviderMD - 03/19/2021 2:00 AM CDT Layout Mechanic Details Entered On: 03/19/2021 2:31 EDT Performed On: 03/19/2021 2:00 EDT by Sarah Vivar Non Emp [...] No Sarah Vivar Non Emp RN - 03/19/2021 2:31 EDT documented in this encounter Plan of Treatment Not on file documented as of this encounter Visit Diagnoses Not on filedocumented in this encounter Care Teams Unloading Checker Relationship Specialty Start Date End Date Jay Howell MD [address] [place] [phone] PCP - General Emergency Medicine 11/12/23 documented as of this encounter
--- OUTSIDE RECORDS SUMMARY | 2025-07-12 08:53 | XMS_ITS | Encounter Summary ---
Author Organization [facility] ([place], [place], [place], [place]) Address [address] [place] [address] Care Team Providers Care Automatic Lathe Tender Name Role Phone Jay Howell MD Primary Care Provider [phone] Encounter Details Date Type Department Care Team (Late st Contact Info) Description 03/19/2021 Transcribed Document [facility] Family Medicine [address] [place] [id number] ProviderJessie MD [address] [place] [id number] Social History Tobacco Use Types Packs/Day Years Used Date Smoking Tobacco: Never Assessed Comments Unknown Sex and Gender Information Value Date Recorded Sex Assigned at Not on file Legal Sex Female 7:30 PM CDT Gender Identity Not on file Sexual Orientation Not on file documented as of this encounter Miscellaneous Notes * Cerner Conversion Note - Historical ProviderMD - 03/19/2021 2:48 PM CDT Nursing Discharge Summary Entered On: 03/19/2021 14:49 EDT Performed On: 03/19/2021 14:48 EDT by Laura Norton RN Discharge Documentation Discharge Date/Time : 03/19/2021 14:48 EDT Patient Disposition, General : Discharge Discharge To : Home with ambulatory/outpatient follow-up Mode Of Departure, General Discharge : Wheelchair Accompanied By, Discharge : Spouse IV Discontinued : Yes Personal Belongings With Patient : Yes Medications Given to Patient : Yes Discharge Instructions Reviewed With, Opportunity For Questions Given : Patient, Spouse Patient Education Completed : Yes Number of Medications Given : 1 Teaching Method : Explanation, Printed materials Teaching Evaluation : Verbalizes understanding Laura Norton RN - 03/19/2021 14:48 EDT documented in this encounter Plan of Treatment Not on file documented as of this encounter Visit Diagnoses Not on filedocumented in this encounter Care Teams Automatic Lathe Tender Relationship Specialty Start Date End Date Jay Howell MD [address] [place] [id number] PCP - General Emergency Medicine 11/12/23 documented as of this encounter
--- OUTSIDE RECORDS SUMMARY | 2025-07-12 08:54 | XMS_ITS ---
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 Name Role Phone Milana, Chencho Unavailable Unavailable [...] Address Phone Organization Dates Chiquita Andrew PCP [address] [facility] [address], [address], [place] (Office): [facility] 06/10/2025 - present Chencho Cristinaanga [address] [place], [facility], [place] (Office): [facility] 06/10/2025 - present Ahmad Anjak [address] [place], [facility], [place] (Office): [facility] 06/10/2025 - present Consuelo Daltonsandeepjulio [address], [place], [address], [facility] (Office): : [facility] 06/10/2025 - present Zacarias Burns [address] [facility], [place], [address], [facility] (Office): [facility] 06/10/2025 - present Mariia Mtz [address] [facility], [place], [address], [facility] (Office): : : [facility] 06/10/2025 - present Ceasar Conner [address] [facility] [address], [place], [address], [facility] (Office): : [facility] 06/10/2025 - present Ely Casanova [address] [facility], [place], [address], [facility] (Office): : : [facility] 06/10/2025 - present Aldo Edwards [address] [facility] [address], [place], [address], [facility] (Office): : [facility] 06/10/2025 - present Bradley Grijalva [facility] 06/10/2025 - present Yajaira Galeas [address] [facility] [address], [address], [facility] (Office): : [facility] 06/10/2025 - present Holley Olson [address] [facility], [place], [address], [facility] (Office): : [facility] 06/10/2025 - present Caitlyn Calle [address] [facility] [address], [place], [address], [facility] 06/10/2025 - present Goals Section Goals Description Status Target Date ADL's will be met AEB: neat, clean appearance, being free of body odor, and dressed in clothing appropriate for the season. Active 09/08/2025 Intentional weight loss duri ng periods of diuresis AEB weight within UBW Active 09/08/2025 Maintain weight AEB consiste nt weight pattern and consuming at least 50-75% of estimated energy requirements Active 09/08/20 Optimize intake AEB tolerati ng/accepting supplements or food interventions Active 09/08/2025 Pain will be controlled/relieved by/through the review date. Active 09/08/2025 Resident has bowel movement every three days through the review date. Active 09/08/2025 Resident skin will maintain/improve through revi ew date. Active 09/08/2025 Resident will continue to pursue individual leis ure activities. Active 09/08/2025 Signs/Symptoms of pain will be controlled/relieved by/through the review date. Active 09/08/2025 The Resident will show no de waller in visual function through the review date. Active 09/08/2025 The incision will show signs of healing and remain free from infection by/through the review date Active 09/08/2025 The resident will actively take part in programs of interest. Active 09/08/2025 The resident will be able to verbalize/communicate required assistance post-discharge and the services required to meet needs before discharge Active 09/08/2025 The resident will be free fr om complications of altered cardopulmonary problems through the review date Active 2024 The resident will be free fr om complications of cardiovascular/circulatory problems through the review date. Active 09/08/2025 The resident will be free fr om discomfort or adverse reactions related to anti-anxiety therapy through the review date. Active 09/08/2025 The resident will be free fr om discomfort or adverse reactions related to antidepressant therapy through the review date. Active 09/08/2025 The resident will be free of any discomfort or adverse side effects of diuretic therapy through the review date. Active 11/08/2024 The resident will be free of infection, pain or bleeding in the oral cavity through review date. Active 09/08/2025 The resident will be free of symptoms of dehydration and maintain moist mucous membranes, good skin turgor. Active 09/08/2025 The resident will have no co mplications related to diabetes through the review date. Active 09/08/2025 The resident will improve cu rrent level of function in ADL's through the review date. Active 09/08/2025 The resident will maintain c urrent level of function with ADL's through the review date. Active 09/08/2025 The resident will maintain intact skin through t he review date. Active 09/08/2025 The resident will maintain o ptimal quality of life within limitation imposed by visual function through the review date. Active 09/08/2025 The resident will maintain t he ability to seek social contact and stimulation through the review date. Active 09/08/2025 The resident will receive jose mahmood opportunities for social contact through the review date. Active 09/08/2025 The resident's risk of falls /injuries will be reduced through the review date. Active 09/08/2025 Functional Status Code Name Recorded Time Value Entered By Bathing 06/10/2025 Not assessed sofiyaburn Immunizations Immunization Status Vaccine Details Vaccine Code [...] completed tuberculin skin test; unspecified formulation lotNumber: [id number] expiry: 06/17/2026 Mfg: [employer] Given 0.1 ml Left Forearm intradermally [...] cancelled Pneumococcal conjugate vaccine 20-valent (PCV20), polysaccharide [id number] conjugate, adjuvant, preservative free 216 CVX created date: 04/10/2025 consent date: 04/09/2025 Educated by on 04/10/2025 Medications Section Medication Name Status Code CodeSystem Dose Route Frequency Admin Type Sig Text Start Date End Date Tubersol Solution 5 UNIT/0.1ML active 437697 RXNORM 0.1 ml Intrade rmal every night court magistrate Routine Inject 0.1 ml intrad ermall y every night court magistrate every 365 day(s) for Mantou x Testin g for 1 Day Record on Immuni zation Record AND Inject 0.1 ml intrad ermall y every night court magistrate for Mantou x Testin g for 1 Day until finish ed Admini ster 2nd step 7 days after 1st step. Record on Immuni zation Record . 06/11 026240 RXNORM 0.1 ml Intrade rmal every night court magistrate Routine Inject 0.1 ml intrad ermall y every night court magistrate every 365 day(s) for Mantou x Testin g for 1 Day Record on Immuni zation Record AND Inject 0.1 ml intrad ermall y every night court magistrate for Mantou x Testin g for 1 Day until finish ed Admini ster 2nd step 7 days after 1st step. Record on Immuni zation Record . 06/18 Remedy Nutrashield Cream 1 % active RXNORM n/a n/a Topical every day and night court magistrate Routine Apply to megan area/b uttock s topica lly every day and night court magistrate for preven tion after incont inent episod e. SYSTEM AUDITOR may apply. 2024 - Lidocaine External Patch 4 % aborted 960581 4 RXNORM n/a n/a Topical one time a day Routine Apply to Left Thigh topica lly one time a day for ENCOUN TER FOR ORTHOP EDIC AFTERC ARE FOLLOW ING SURGIC AL AMPUTA and remove per schedu le 06/11 Latanoprost Ophthalmic Solution 0.005 % active 903853 RXNORM 1 drop Ophthal robb at bedtime Routine Instil l 1 drop in both eyes at bedtim e for UNSPEC IFIED GLAUCO MA (H40.9 ) 2024 - Nortriptyline HCl Oral Capsule 10 MG active 803940 RXNORM 1 capsul e Oral at bedtime Routine Give 1 capsul e by mouth at bedtim e for UNSPEC IFIED MOOD [AFFEC TIVE] DISORD ER (F39) 2024 - oxyCODONE HCl Oral Tablet 5 MG active 309046 1 RXNORM 1 tablet Oral as needed PRN Give 1 tablet by mouth every 4 hours as needed for ENCOUN TER FOR ORTHOP EDIC AFTERC ARE FOLLOW ING SURGIC AL AMPUTA AND Give 2 tablet by mouth every 4 hours as needed for ENCOUN TER FOR ORTHOP EDIC AFTERC ARE FOLLOW ING SURGIC AL AMPUTA 2024 - 895816 1 RXNORM 2 tablet Oral as needed PRN Give 1 tablet by mouth every 4 hours as needed for ENCOUN TER FOR ORTHOP EDIC AFTERC ARE FOLLOW ING SURGIC AL AMPUTA AND Give 2 tablet by mouth every 4 hours as needed for ENCOUN TER FOR ORTHOP EDIC AFTERC ARE FOLLOW ING SURGIC AL AMPUTA 2024 - Furosemide Oral Tablet 40 MG active 093604 RXNORM 1 tablet Oral as needed PRN Give 1 tablet by mouth every 24 hours as needed for Edema 2024 - Acetaminophen Oral Tablet 500 MG active 926089 RXNORM 2 tablet Oral as needed PRN Give 2 tablet by mouth every 8 hours as needed for Pain Not to exceed 3GM in 24H from ALL source s. 2024 - Antacid Ultra Strength Oral Tablet Chewable 1000 MG active 1 tablet Oral one time a day Routine Give 1 tablet by mouth one time a day for GASTRO -ESOPH AGEAL REFLUX DISEAS E WITHOU T ESOPHA GITIS (K21.9 ) 2024 - Carvedilol Oral Tablet 25 MG active 19991218 RXNORM 1 tablet Oral two times a day Routine Give 1 tablet by mouth two times a day for UNSPEC IFIED ATRIAL FIBRIL LATION (I48.9 1) Hold for SBP < 110 or HR < 60 2024 - Pantoprazole Sodium Oral Tablet Delayed Release 40 MG active 919211 RXNORM 1 tablet Oral two times a day Routine Give 1 tablet by mouth two times a day for GASTRO -ESOPH AGEAL REFLUX DISEAS E WITHOU T ESOPHA GITIS (K21.9 ) 2024 - ALPRAZolam Oral Tablet 0.5 MG aborted 177800 RXNORM 1 tablet Oral one time a day Routine Give 1 tablet by mouth one time a day for ANXIET Y DISORD ER, UNSPEC IFIED (F41.9 ) for 3 Days 06/10 Gabapentin Oral Capsule 300 MG aborted 183936 RXNORM 1 capsul e Oral one time a day Routine Give 1 capsul e by mouth one time a day for POLYNE UROPAT HY, UNSPEC IFIED (G62.9 ) for 3 Days 06/10 Cyanocobalami n Oral Tablet 1000 MCG active 135384 RXNORM 1 tablet Oral one time a day Routine Give 1 tablet by mouth one time a day for Supple ment 2024 - Atorvastatin Calcium Oral Tablet 40 MG active 289653 RXNORM 1 tablet Oral at bedtime Routine Give 1 tablet by mouth at bedtim e for HYPERL IPIDEM IA, UNSPEC IFIED (E78.5 ) 2024 - Dorzolamide HCl-Timolol Mal Ophthalmic Solution 2-0.5 % active 531293 2 RXNORM 1 drop Ophthal robb at bedtime Routine Instil l 1 drop in both eyes at bedtim e for GLAUCO MA 2024 - Polyethylene Glycol Powder active 17 gram Oral in the morning Routine Give 17 gram by mouth in the mornin g for bowel manage ment 2024 - Gabapentin Oral Capsule 300 MG aborted 035470 RXNORM 1 capsul e Oral one time a day Routine Give 1 capsul e by mouth one time a day for POLYNE UROPAT HY, UNSPEC IFIED (G62.9 ) 06/11 Ranolazine ER Oral Tablet Extended Release 12 Hour 1000 MG active 237249 RXNORM 1 tablet Oral in the morning Routine Give 1 tablet by mouth in the mornin g for HEART FAILUR E 2024 - ALPRAZolam Oral Tablet 0.5 MG active 193702 RXNORM 1 tablet Oral one time a day Routine Give 1 tablet by mouth one time a day for ANXIET Y DISORD ER, UNSPEC IFIED (F41.9 ) 2024 - Aquaphor External Ointment active 936149 4 RXNORM n/a n/a Topical every night court magistrate Routine Apply to RLE topica lly every night court magistrate for dry skin AND Apply to RLE topica lly as needed for dry skin 2024 - 199166 4 RXNORM n/a n/a Topical as needed PRN Apply to RLE topica lly every night court magistrate for dry skin AND Apply to RLE topica lly as needed for dry skin 2024 - Gabapentin 300 MG Capsule active 060448 RXNORM 1 capsul e Oral one time a day Routine Give 1 capsul e by mouth one time a day for POLYNE UROPAT HY, UNSPEC IFIED (G62.9 ) 2024 - REMEDY ZINC SKIN PROTECT Paste active n/a n/a Topical every day and night court magistrate Routine Apply to coccyx /sacru m topica lly every day and night court magistrate for MASD/p revent ion Cleans e area, pat dry, apply cream. 2024 - Mental Status Section Date Assessment Total Score Description 04/30/2025 CAM 0 No delirium ind icated 04/15/2025 BIMS 12 moderate cognit john impairment CAM 0 No delirium ind icated PHQ-9 00 Problems Problem # Description Date of onset Resolved Date Code CodeSystem Concern Status 1 ALTERED MENTAL STATUS, UNSPECIFIED 04/25/20 25 06/10/[address] completed 2 ACQUIRED ABSENCE OF LEFT FOOT 04/09/[address] active 3 ANXIETY DISORDER, UNSPECIFIED 04/09/[address] active 4 ATHEROSCLEROTIC HEART DISEASE OF [place] CORONARY ARTERY WITHOUT ANGINA PECTORIS 04/09/[address] active 5 CHRONIC KIDNEY DISEASE, UNSPECIFIED 04/09/[address] active 6 DISRUPTION OF WOUND, UNSPECIFIED, SUBSEQUENT ENCOUNTER 04/09/2006/10/[address] completed 7 EMPHYSEMA, UNSPECIFIED 04/09/[address] active 8 ENCOUNTER FOR ORTHOPEDIC AFTERCARE FOLLOWING SURGICAL AMPUTATION 04/09/[address] active 9 ESSENTIAL (PRIMARY) HYPERTENSION 04/09/[address] active 10 GASTRO-ESOPHAGEAL REFLUX DISEASE WITHOUT ESOPHAGITIS 04/09/[address] active 11 HEART FAILURE, UNSPECIFIED 04/09/[address] active 12 HYPERLIPIDEMIA, UNSPECIFIED 04/09/[address] active 13 OTHER SPECIFIED ARTHRITIS, UNSPECIFIED SITE 04/09/[address] active 14 POLYNEUROPATHY, UNSPECIFIED 04/09/[address] active 15 PRESENCE OF AORTOCORONARY BYPASS GRAFT 04/09/[address] active 16 SLEEP APNEA, UNSPECIFIED 04/09/[address] active 17 TYPE 2 DIABETES MELLITUS WITH DIABETIC PERIPHERAL ANGIOPATHY WITHOUT GANGRENE 04/09/[address] active 18 UNSPECIFIED ATRIAL FIBRILLATION 04/09/[address] active 19 UNSPECIFIED GLAUCOMA 04/09/[address] active 20 UNSPECIFIED MOOD [AFFECTIVE] DISORDER 04/09/[address] active 21 UNSPECIFIED URINARY INCONTINENCE 04/09/20 25 06/10/[address] completed Reason for Referral No Reasons for Referral Entered Diagnostic Results Result Code Code System Date Test Result Interpretation Reference Range Status Notes [id number] LOINC 06/12 *CBC, PLATELET CT & DIFF / *COMPREHEN SIVE METABOLIC PANEL / HEMOGLOBIN A1C Completed Result for: SKYLER BAUTISTA ( 1940, F) 13386-7 [facility] 06/12 DIFFERENTI AL Value: AUTOMATIC METHOD Units: Normal Final 3097-3 [facility] 06/12 BUN/CREAT RATIO Value: 23 Units: Normal 7-25 Final 29687-0 [facility] 06/12 FASTING STATUS Value: UNKNOWN Units: Normal Final . 788-0 [facility] 06/12 RDW Value: 17.5 Units: % High <15.1 Final 4548-4 [facility] 06/12 HEMOGLOBIN A1C Value: 6.0 Units: % High <5.7 Final (NOTE) . Th e [employer] recommends the following G uidelines: 5.7-6.4% Indicates increased risk for diabetes (Prediabete s). >6.5% Diagnostic of diabetes. In the absence of unequivocal hyperglycem ia, results should be confirmed by repeat testing. <7% Glycemic recommendat ion for non adults with diabetes. . [employer] , Standards of Medical Care in Diabetes,V olume 40; 2017 . 4544-3 [facility] 06/12 HEMATOCRIT Value: 24.4 Units: % Low 34.0-49.0 Final 56810-3 [facility] 06/12 IMMATURE GRANULOCYT ES Value: 0.3 Units: % Normal <1 Final . 770-8 [facility] 06/12 NEUTROPHIL Value: 61.4 Units: % Normal 42.0-80.0 Final 736-9 [facility] 06/12 LYMPHOCYTE Value: 29.7 Units: % Normal 14.0-51.0 Final 5905-5 [facility] 06/12 MONOCYTE Value: 8.0 Units: % Normal 4.0-12.0 Final 713-8 [facility] 06/12 EOSINOPHIL Value: 0.0 Units: % Normal 0.0-5.0 Final 706-2 [facility] 06/12 BASOPHIL Value: 0.6 Units: % Normal 0.0-2.0 Final 53005-6 [facility] 06/12 nRBCs Value: 0.0 Units: /100{WBC} Normal 0 Final 35056-0 [facility] 06/12 MPV Value: 12.6 Units: FL High 7.2-11.7 Final 787-2 [facility] 06/12 MCV Value: 108.9 Units: FL High 80.0-100.0 Final 718-7 [facility] 06/12 HEMOGLOBIN Value: 7.8 Units: G/DL Low 11.2-15.7 Final 786-4 [facility] 06/12 MCHC Value: 32.0 Units: G/DL Normal 30.7-35.5 Final 2885-2 [facility] 06/12 TOTAL PROTEIN Value: 6.1 Units: G/DL Normal 6.0-8.3 Final 1751-7 [facility] 06/12 ALBUMIN Value: 3.4 Units: G/DL Low 3.5-5.2 Final 28019-7 [facility] 06/12 GLOBULIN Value: 2.7 Units: G/DL Normal 1.9-3.6 Final 777-3 [facility] 06/12 PLATELET COUNT Value: 99 Units: K/uL Low 140-400 Final 6690-2 [facility] 06/12 WBC COUNT Value: 3.3 Units: K/uL Low 3.5-10.9 Final 751-8 [facility] 06/12 ABS NEUTROPHIL Value: 2.0 Units: K/uL Normal 1.8-7.5 Final 64912-5 [facility] 06/12 ABS IMMATURE GRANS Value: 0.0 Units: K/uL Normal 0.0-0.1 Final 731-0 [facility] 06/12 ABS LYMPHOCYTE Value: 1.0 Units: K/uL Normal 0.9-4.1 Final 742-7 [facility] 06/12 ABS MONOCYTE Value: 0.3 Units: K/uL Normal 0.2-1.0 Final 05307-8 [facility] 06/12 ABS EOSINOPHIL Value: 0.0 Units: K/uL Normal 0.0-0.5 Final 704-7 [facility] 06/12 ABS BASOPHIL Value: 0.0 Units: K/uL Normal 0.0-0.3 Final 789-8 [facility] 06/12 RBC Value: 2.24 Units: M/uL Low 3.95-5.26 Final 2951-2 [facility] 06/12 SODIUM Value: 140 Units: MEQ/L Normal 135-148 Final 2823-3 [facility] 06/12 POTASSIUM Value: 4.1 Units: MEQ/L Normal 3.4-5.3 Final 2074-0 [facility] 06/12 CHLORIDE Value: 107 Units: MEQ/L Normal 96-110 Final 9 [facility] 06/12 CO2 Value: 23 Units: MEQ/L Normal 19-32 Final 2345-7 [facility] 06/12 GLUCOSE,RA NDOM Value: 118 Units: MG/DL High 70-99 Final (NOTE) The [employer] recommends the following guidelines : MG/DL . <100 = NORMAL GLUCOSE 100 -125= IMPAIRED FASTING GLUCOSE >=1 26 = PROVISIONAL DIAGNOSIS OF DIABETES AD A Workgroup Report, Diabetic Care, volume 40, October 2016 . 3094-0 [facility] 06/12 BLOOD UREA NITROGEN Value: 25 Units: MG/DL Normal 3-29 Final 2160-0 [facility] 06/12 CREATININE Value: 1.1 Units: MG/DL Normal 0.5-1.2 Final 14487-7 [facility] 06/12 CALCIUM Value: 9.1 Units: MG/DL Normal 8.5-10.5 Final 1974- [facility] 06/12 BILIRUBIN, TOTAL Value: 0.5 Units: MG/DL Normal 0.0-1.2 Final 48361-7 [facility] 06/12 GLOMERULAR FILTRATION RATE (GFR) Value: 49 Units: MLS/MIN/1. 73M2 Low >60 Final (NOTE) [facility] uses the CKD-EPI Creatinine Equation (2020) to calculate estimated glomerular filtration rates (eGFR). eGFR = 142 x min(standar dized Scr/K,1) a * max(standar dized Scr/K,1)-1 .200 * 0.9938 age in years * 1.012 [if female] 785-6 [facility] 06/12 MCH Value: 34.8 Units: PG High 26.0-34.0 Final 1759-0 [facility] 06/12 A/G RATIO Value: 1.3 Units: {ratio} Normal 0.8-2.6 Final 1920-8 [facility] 06/12 AST Value: 23 Units: U/L Normal 0-55 Final 1742-6 [facility] 06/12 ALT Value: 14 Units: U/L Normal 0-60 Final 6768-6 [facility] 06/12 ALK PHOSPHATAS E Value: 176 Units: U/L High 23-144 Final Test Code Code System Name Date *CBC, PLATELET CT & DIFF *COMPREHENSIVE METABOLIC YO EL 06/12/2025 *CBC, PLATELET CT & DIFF 06/12/2025 *CBC, PLATELET CT & DIFF *COMPREHENSIVE METABOLIC YO EL 06/12/2025 *CBC, PLATELET CT & DIFF *COMPREHENSIVE METABOLIC YO EL 06/12/2025 *CBC, PLATELET CT & DIFF *COMPREHENSIVE METABOLIC YO EL 06/12/2025 Social History Social History Observation Description Start Date End Date Code Code System Current Smoking Status Tobacco smoking consumption unknown [id number] SNOMED CT Sex Assigned At Female 1940 15274-1 [facility] Gender Identity Vital Signs Code Code System Vitals Name Values and Units Timing Information 8462-4 [facility] Blood Pressure-Diastolic Value=49 Un its=mmHg 06/12/2025 8480-6 [facility] Blood Pressure-Systolic Asgdd=335 Un its=mmHg 06/12/2025 8867-4 [facility] Heart rate Value=95.0 Units=/min 74684-0 [facility] Pain Level Value=0.0 06/12/2025 9279-1 [facility] Respiratory Rate Value=18.0 Units=/m in 06/12/2025 8310-5 [facility] Body Temperature Value=97.8 Units= F 06/12/2025 86708-4 [facility] O2 % BldC Oximetry Value=95.0 Units= % 06/12/2025 98758-2 [facility] Weight Famof=597.4 Units=Lbs 2339-0 [facility] Blood Sugar Txwwb=295.0 Units=mg/dL 06/10/2025 8302-2 [facility] Height Value=62.0 Units=Inches 06/10/2025
--- OUTSIDE RECORDS SUMMARY | 2025-07-12 08:54 | XMS_ITS | Encounter Summary ---
Author Organization [employer] ([place], [place], [place], [place]) Address [address] [place] [address] Care Team Providers Care Insemination Worker Name Role Phone Jay Howell MD Primary Care Provider [phone] Encounter Details Date Type Department Care Team (Late st Contact Info) Description 08/28/2020 Transcribed Document [facility] [place] [address] [place] [address] ProviderJessie MD [address] [place] [address] Social History Tobacco Use Types Packs/Day Years Used Date Smoking Tobacco: Never Assessed Comments Unknown Sex and Gender Information Value Date Recorded Sex Assigned at Not on file Legal Sex Female 7:30 PM CDT Gender Identity Not on file Sexual Orientation Not on file documented as of this encounter Miscellaneous Notes * Cerner Conversion Note - Jessie Yuen MD - 08/28/2020 11:43 AM AIRPLANE FLIGHT ATTENDANT SUPERVISOR Patient: SKYLER MONTOYA Age: 79 years Sex: Female : 1940 Associated Diagnoses: None Author: SLICK BRADLEY, [facility] Ms. Montoya is 79 yo female admitted [...] 24 hrs) Last Charted Minimum Maximum Temp 97.8 (AUG 28 05:09) 97.8 (AUG 28 05:09) 98.6 (AUG 27 18:36) Apical HR 65 (AUG 28 09:01) 64 (AUG 28 05:18) 66 (AUG 27 20:54) Mon HR 65 (AUG 28 05:59) 65 (AUG 28 05:59) 69 (AUG 27 22:18) Resp Rate 16 (AUG 28 05:09) 16 (AUG 27 18:36) 18 (AUG 27 16:26) SBP H 167 (AUG 28 05:59) H 155 (AUG 28 02:24) H 181 (AUG 28 05:09) DBP L 59 (AUG 28 05:59) L 37 (AUG 27 18:36) 65 (AUG 28 05:09) MAP 86 (AUG 28 05:59) 68 (AUG 27 18:36) 94 (AUG 28 05:09) SpO2 98 (AUG 28 08:49) 95 (AUG 27 16:26) 98 (AUG 27 21:46) Labs (Last four charted values) WBC 4.5 (AUG 28) 5.1 (NOV 11) 5.2 (NOV ) 6.0 (NOV 09) HB L 10.5 (NOV 12) L 10.3 (NOV 11) L 10.0 (NOV 10) 12.0 (NOV 09) HCT L 31.7 (NOV 12) L 31.2 (NOV 11) L 30.5 (NOV 10) 36.1 (NOV 09) Plt L 139 (NOV 12) L 148 (NOV 11) L 140 (NOV 10) 178 (NOV 09) Na 139 (NOV 11) 138 (NOV 10) 136 (NOV 09) K 4.5 (NOV 11) L 3.4 (NOV 10) 3.7 (NOV 09) Cl 109 (NOV 11) 107 (NOV 10) 105 (NOV 09) CO2 27 (NOV 11) 26 (NOV 10) 25 (NOV 09) BUN 10 (NOV 11) 10 (NOV 10) 12 (NOV 09) Cr 0.70 (NOV 11) 0.70 (NOV 10) 0.90 (NOV 09) Glu R H 115 (AUG 27) H 109 (AUG 26) H 120 (AUG 25) Ca 8.8 (AUG 27) 8.4 (AUG 26) 9.1 (AUG 25) Lactic 1.8 (AUG 25) C 2.3 (AUG 25) C 2.1 (AUG 25) PT H 17.8 (AUG 28) H 23.1 (AUG 27) H 25.0 (AUG 26) H 32.5 (AUG 25) INR H 1.7 (AUG 28) H 2.2 (AUG 27) H 2.4 (AUG 26) H 3.1 (AUG 25) AST 29 (AUG 25) ALT 32 (AUG 25) ALK P 63 (AUG 25) T Bili 0.9 (AUG 25) PTN 8.1 (AUG 25) ALB 4.0 (AUG 25) Troponin <0.015 (AUG 28) Date 08/25 08/26 08/27 08/28 INR 3.1 2.4 2.2 1.7 Dose ---- ---- ---- ---- Plan: Will resume home warfarin dose, 3mg on MWF and 2mg on TuThSaSu. Follow closely with daily INR. Goal INR per attending, 2.5-3.5 (INR--attempting to clarify with Dr. Moeller office goal INR/PT, 2.5-3.[address] Moeller) Monitor for S&S of bleeding, H&H stable over last several days. Thank You, Slick Bradley, Dana Electronically signed by Sivan [facility] Conversion Heel Former Cerner at 02/04/2023 1:57 PM CDT documented in this encounter Plan of Treatment Not on file documented as of this encounter Visit Diagnoses Not on filedocumented in this encounter Care Teams Insemination Worker Relationship Specialty Start Date End Date Jay Howell MD [address] [place] [phone] PCP - General Emergency Medicine 11/12/23 documented as of this encounter
--- OUTSIDE RECORDS SUMMARY | 2025-07-12 08:54 | XMS_ITS | Encounter Summary ---
Author Organization [employer] ([place], [place], [place], [place]) Address [address] [place] [address] Care Team Providers Care Senior Software Quality Analyst Name Role Phone Jay Howell MD Primary Care Provider [phone] Encounter Details Date Type Department Care Team (Late st Contact Info) Description 08/28/2020 Transcribed Document [facility] [place] [address] [place] [address] ProviderJessie MD [address] [place] [address] Social History Tobacco Use Types Packs/Day Years Used Date Smoking Tobacco: Never Assessed Comments Unknown Sex and Gender Information Value Date Recorded Sex Assigned at Not on file Legal Sex Female 7:30 PM CDT Gender Identity Not on file Sexual Orientation Not on file documented as of this encounter Miscellaneous Notes * Cerner Conversion Note - Historical ProviderMD - 08/28/2020 10:17 AM LICENSED PRACTICAL VOCATIONAL NURSE Attempt to Treat, OT Entered On: 08/28/2020 15:06 EST Performed On: 08/28/2020 10:17 EST by ANGELA DIAZ OTR/Sophie Attempt to Treat Inability to Treat Comment : Pt refusing OT eval this AM stating that she just got back to bed and was up all night due to heart issues . Pt requested to rest at this time OT will f/u Notification : ANGELA Bello OTR/Sophie - 08/28/2020 14:59 EST Electronically signed by Sivan [facility] Conversion Carding Utility Tender Cerner at 02/04/2023 1:59 PM CDT documented in this encounter Plan of Treatment Not on file documented as of this encounter Visit Diagnoses Not on filedocumented in this encounter Care Teams Senior Software Quality Analyst Relationship Specialty Start Date End Date Jay Howell MD [address] [place] [phone] PCP - General Emergency Medicine 11/12/23 documented as of this encounter
--- OUTSIDE RECORDS SUMMARY | 2025-07-12 08:54 | XMS_ITS | Encounter Summary ---
Author Organization [employer] ([place], [place], [place], [place]) Address [address] [place] [address] Care Team Providers Care Hearing Health Technician Name Role Phone Jay Howell MD Primary Care Provider [phone] Encounter Details Date Type Department Care Team (Late st Contact Info) Description 03/19/2021 Transcribed Document [facility] [place] [address] ProviderJessie MD [address] [place] [address] Social History Tobacco Use Types Packs/Day Years Used Date Smoking Tobacco: Never Assessed Comments Unknown Sex and Gender Information Value Date Recorded Sex Assigned at Not on file Legal Sex Female 7:30 PM CDT Gender Identity Not on file Sexual Orientation Not on file documented as of this encounter Miscellaneous Notes * Cerner Conversion Note - Historical ProviderMD - 03/19/2021 2:23 PM CDT Nursing Discharge Summary Entered On: 03/19/2021 14:24 EDT Performed On: 03/19/2021 14:23 EDT by Laura Norton RN Discharge Documentation Patient Disposition, General : Discharge Discharge To : Home with ambulatory/outpatient follow-up Mode Of Departure, General Discharge : Wheelchair Accompanied By, Discharge : Spouse IV Discontinued : Yes Personal Belongings With Patient : Yes Medications Given to Patient : Yes Discharge Instructions Reviewed With, Opportunity For Questions Given : Patient, Spouse Patient Education Completed : Yes Teaching Method : Explanation, Printed materials Teaching Evaluation : Verbalizes understanding Laura Norton RN - 03/19/2021 14:23 EDT documented in this encounter Plan of Treatment Not on file documented as of this encounter Visit Diagnoses Not on filedocumented in this encounter Care Teams Hearing Health Technician Relationship Specialty Start Date End Date Jay Howell MD [address] [place] [phone] PCP - General Emergency Medicine 11/12/23 documented as of this encounter
--- OUTSIDE RECORDS SUMMARY | 2025-07-12 08:54 | XMS_ITS | Encounter Summary ---
Author Organization [employer] ([place], [place], [place], [place]) Address [address] [place] [address] Care Team Providers Care Pasteurizing Supervisor Name Role Phone Jay Howell MD Primary Care Provider [phone] Encounter Details Date Type Department Care Team (Late st Contact Info) Description 03/19/2021 Transcribed Document [facility] [place] [facility] [place] [address] ProviderJessie MD [address] [place] [phone] Social History Tobacco Use Types Packs/Day Years Used Date Smoking Tobacco: Never Assessed Comments Unknown Sex and Gender Information Value Date Recorded Sex Assigned at Not on file Legal Sex Female 7:30 PM CDT Gender Identity Not on file Sexual Orientation Not on file documented as of this encounter Miscellaneous Notes * Cerner Conversion Note - Historical ProviderMD - 03/19/2021 8:36 AM CDT Patient: SKYLER MONTOYA Age: 80 Years Sex: Female : 1940 Subjective doing well d/c today Vital Signs T: 37.1 ??C TMIN: 36.9 ??C TMAX: 37.6 ??C HR: 61(Monitored) RR: 18 BP: 130/68 SpO2: 95% Oxygen Settings (Last) Oxygen Therapy Mode: Nasal cannula (03/19/21 05:28:00) Oxygen Flow Rate: 2 Liter/Min (03/19/21 05:28:00) Intake & Output Totals Last 24 Hours (7a-7a) Input Total: 1113.52 mL Output Total: 300 mL Balance: 813.52 mL Physical Exam HEENT: Head, atraumatic and [...] GENERAL: The patient lying in bed, resting Assessment/Plan Syncope. The patient admitted to the [...] related to syncope; neuro consult still pending. [1] ECHO: Normal left ventricular wall thickness. Visually estimated ejection fraction 60% +/- 5%. Normal left ventricular systolic function. No hemodynamically significant valvular heart disease. No masses or thrombi are seen. CAROTID: RIGHT: 50-69% stenosis of the internal carotid artery. ECA >50% Stenosis. Normal antegrade vertebral flow. No evidence of subclavian steal. [2] LEFT: Subclavian artery stenosis is greater than 50%. 50-69% stenosis of the internal carotid artery. ECA >50% Stenosis. Normal antegrade vertebral flow. No evidence of subclavian steal MRI brain ordered by Dr Clarke: no acute process small vessel ischemia CTA head/neck/chest: ordered by Dr Clarke and cardiology: 1. Unremarkable anterior middle cerebral artery circulation with no stenosis or aneurysm. 2. Proximal posterior cerebral artery stenoses bilaterally. 3. No intracranial aneurysm. [2] IMPRESSION: 1. Extensive calcifications are noted. There is calcification of the carotid bifurcations bilaterally with probable focal 70-75% stenosis of the proximal non origin right internal carotid artery. There is stenosis involving the left internal carotid artery origin as well. 2. Calcification of the vertebral origins with keir-nn-hmjgjvvv stenosis. 3. Extensive vascular calcification. 4. Severe centrilobular emphysema. 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 We [...] compression boot. VTE Prophylaxis - Medical coumadin VTE Prophylaxis - Medical Warfarin 4 mg, Oral, Tab, Daily, Routine, Start 03/18/21 18:00:00 EDT, 03/19/21 9:00:00 EDT (BUBBA HUNG PA-C) Sequential Compression Device Start: 03/16/21 17:31:00 EDT, Bilateral, Length: Knee High, While patient is in bed, Continuous Order (MARIA ELENA DAVALOS) Medications atorvastatin, 40 mg= 1 Tab, Oral, At [...] mg= 2 mL, IV Push, Q4H, PRN Lab Results Test Name Test Result Date/Time Device Comment 1 Notified Nurse RBV 03/19/2021 05:54 EDT Device Comment 1 Notified Nurse RBV 03/18/2021 20:30 EDT Glucose POC2 99 mg/dL 03/19/2021 05:54 EDT Glucose POC2 134 mg/dL (High) 03/18/2021 20:30 EDT Glucose POC2 157 mg/dL (High) 03/18/2021 11:06 EDT PT 21.0 Second(s) (High) 03/19/2021 06:06 EDT INR 2.1 (High) 03/19/2021 06:06 EDT Electronically signed by Sivan [facility] Conversion Medical Staff Services Manager Cerner at 02/04/2023 2:09 PM CDT documented in this encounter Plan of Treatment Not on file documented as of this encounter Visit Diagnoses Not on filedocumented in this encounter Care Teams Pasteurizing Supervisor Relationship Specialty Start Date End Date Jay Howell MD [address] [place] [phone] PCP - General Emergency Medicine 11/12/23 documented as of this encounter
--- OUTSIDE RECORDS SUMMARY | 2025-07-12 08:54 | XMS_ITS | Encounter Summary ---
Author Organization [employer] ([place], [place], [place], [place]) Address [address] [place] [address] Care Team Providers Care Wine Merchant Name Role Phone Jay Howell MD Primary Care Provider [phone] Encounter Details Date Type Department Care Team (Late st Contact Info) Description 08/28/2020 Transcribed Document [facility] [place] [address] [place] [address] ProviderJessie MD [address] [place] [address] Social History Tobacco Use Types Packs/Day Years Used Date Smoking Tobacco: Never Assessed Comments Unknown Sex and Gender Information Value Date Recorded Sex Assigned at Not on file Legal Sex Female 7:30 PM CDT Gender Identity Not on file Sexual Orientation Not on file documented as of this encounter Miscellaneous Notes * Cerner Conversion Note - Historical ProviderMD - 08/28/2020 10:16 AM SAFETY ADVISOR Attempt to Treat, PT Entered On: 08/28/2020 10:28 EST Performed On: 08/28/2020 10:16 EST by ERIC OH PT Attempt to Treat Unable to Treat Due To : Patient Refusal Inability to Treat Comment : pt declined PTx/OTx evals this AM stated I just got back to bed, been up all night with heart issues pt requests PTx/OTx return later will follow as schedule allows Notification : RN(Jose L)/PTx/OTx ERIC OH, PT - 08/28/2020 10:27 EST Electronically signed by [facility] Conversion Veterinary Medical Officer Cerner at 02/04/2023 2:14 PM CDT documented in this encounter Plan of Treatment Not on file documented as of this encounter Visit Diagnoses Not on filedocumented in this encounter Care Teams Wine Merchant Relationship Specialty Start Date End Date Jay Howell MD [address] [place] [phone] PCP - General Emergency Medicine 11/12/23 documented as of this encounter
--- OUTSIDE RECORDS SUMMARY | 2025-07-12 08:54 | XMS_ITS | Encounter Summary ---
Author Organization [employer] ([place], [place], [place], [place]) Address [address] [place] [address] Care Team Providers Care Mica Washer Gluer Name Role Phone Jay Howell MD Primary Care Provider [phone] Encounter Details Date Type Department Care Team (Late st Contact Info) Description 08/28/2020 Transcribed Document [facility] [place] [address] [place] [address] ProviderJessie MD [address] [place] [address] Social History Tobacco Use Types Packs/Day Years Used Date Smoking Tobacco: Never Assessed Comments Unknown Sex and Gender Information Value Date Recorded Sex Assigned at Not on file Legal Sex Female 7:30 PM CDT Gender Identity Not on file Sexual Orientation Not on file documented as of this encounter Miscellaneous Notes * Cerner Conversion Note - Jessie ProviderMD - 08/28/2020 1:08 PM GRANULAR OPERATOR Patient: SKYLER MONTOYA Age: 79 Years Sex: Female : 1940 Subjective No acute events overnight. Patient is eager to discharge home. Vital Signs T: 36.6 ??C TMIN: 36.5 ??C TMAX: 37.1 ??C HR: 65 RR: 16 BP: 167/59 SpO2: 98% Physical Exam AAOx3, NAD, at bedside. RIGHT groin: slight ecchymosis at access site, c/d/i, soft, no evidence of hematoma. LLE: warm, distal anterior leg wound with wound vac with good suction and, scant serosanguineous drainage. Mild reperfusion erythema and edema, with distal ecchymosis. Palpable DP pulse, audible biphasic DISABILITY INSURANCE HEARING OFFICER signal. Neuromotor intact. VTE Risk Total Score VTE Prophylaxis - Surgical Clopidogrel 75 mg, Oral, Tab, Daily, Routine, Start 08/27/20 9:00:00 EST, 08/26/20 16:01:00 EST (MURTAUGH, ТАТЬЯНА) Warfarin 3 mg, Oral, Tab, MoWeFr, Start 08/29/20 18:00:00 EST (CRANFILLKAREN, PA-C) Warfarin 2 mg, Oral, Tab, TuThSaSu, Start 08/28/20 18:00:00 EST (CRANFILLKAREN, PA-C) Sequential Compression Device Start: 08/25/20 5:51:00 EST, Bilateral, While patient is in bed, Continuous Order (BETH DAVALOS) Assessment/Plan LEFT anterior distal leg wound with LEFT PT occlusion - distal - 08/26/2020 ([facility];Mehreen) RIGHT OIL FIELD EQUIPMENT MECHANIC access - ultrasound guided Aortogram with LEFT lower extremity run-off LEFT PT angioplasty ([id number] Nanocross) LEFT peroneal angioplasty (2.5-1q940lu Nanocross) RIGHT OIL FIELD EQUIPMENT MECHANIC closure (Angioseal) LEFT leg debridement - H&H, low but stable. - Cr WNL - continue plavix and statin, d/c asa. - Coumadin restarted, caution to ensure no bleeding in wound vac. - Wound care: consult wound care nurse to apply wound vac today to LLE with changes MWF - Dispo: patient will need home w/ home health for wound care and wound vac for home use at bedside for tomorrow's vac change. - Rx for [place] 5/325mg q4-6h prn pain #20 on chart. - Will need RLE angio with revascularization in near future. - F/u 1 wk w/ Dr. Verde in [facility] [place] (09/08 at 1245) - F/u w/ Dr. Verde w/ [facility] (09/29 1230)- Office to discuss RLE angio w/ intervention. No further vascular surgery intervention required. Vascular surgery will sign off. Please contact on-call vascular surgeon with any questions or for re-consultation. Labs Results AUG 27 03:18 139 109 10 / H 115 4.5 27 0.70 \ AUG 28 03:49 \ L 10.5 / 4.5 L 139 / L 31.7 \ No qualifying data available. Imaging Results (Last 24 Hours) Radiology Results (Last 48 hours) [id number] -- 08/25/2020 05:53 CT Abdomen WO W [...] is identified and no further follow-up isrecommended. Allergies Macrodantin morphine (rash, rash) nitrofurantoin (blisters, blisters) Electronically signed by Sivan [facility] Conversion Windows Migration Technician Cerner at 02/04/2023 1:58 PM CDT documented in this encounter Plan of Treatment Not on file documented as of this encounter Visit Diagnoses Not on filedocumented in this encounter Care Teams Mica Washer Gluer Relationship Specialty Start Date End Date Jay Howell MD [address] [place] [phone] PCP - General Emergency Medicine 11/12/23 documented as of this encounter
--- OUTSIDE RECORDS SUMMARY | 2025-07-12 08:54 | XMS_ITS | Encounter Summary ---
Author Organization [employer] ([place], [place], [place], [place]) Address [address] [place] [address] Care Team Providers Care Supervisor Pig Machine Name Role Phone Jay Howell MD Primary Care Provider [phone] Encounter Details Date Type Department Care Team (Late st Contact Info) Description 08/28/2020 Transcribed Document [facility] [place] Family Medicine [address] [place] [address] ProviderJessie MD [address] [place], [place] [address] Social History Tobacco Use Types Packs/Day Years Used Date Smoking Tobacco: Never Assessed Comments Unknown Sex and Gender Information Value Date Recorded Sex Assigned at Not on file Legal Sex Female 7:30 PM CDT Gender Identity Not on file Sexual Orientation Not on file documented as of this encounter Miscellaneous Notes * Cerner Conversion Note - Historical ProviderMD - 08/28/2020 5:00 PM UNDERCOVER COP Chart Check - Review Order Profile Entered On: 08/28/2020 18:04 EST Performed On: 08/28/2020 17:00 EST by Jose L Jones RN Chart Check All Active Orders Reviewed : Yes Jose L Jones RN - 08/28/2020 18:04 EST Electronically signed by Sivan [facility] Conversion Shovel Operator Cerner at 02/04/2023 2:20 PM CDT documented in this encounter Plan of Treatment Not on file documented as of this encounter Visit Diagnoses Not on filedocumented in this encounter Care Teams Supervisor Pig Machine Relationship Specialty Start Date End Date Jay Howell MD [address] [place] [phone] PCP - General Emergency Medicine 11/12/23 documented as of this encounter
--- OUTSIDE RECORDS SUMMARY | 2025-07-12 08:54 | XMS_ITS | Encounter Summary ---
Author Organization [facility] Address [address] [place] [id number] Care Team Providers Care Assistant Wrestling Coach Name Role Phone Jay Howell MD Primary Care Provider [phone] Encounter Details Date Type Department Care Team (Late st Contact Info) Description 07/09/2025 Telephone [facility] [address] [place] [phone] [place] [address] Social History Tobacco Use Types Packs/Day Years [...] place to sleep or slept in a custodial (including now)? No 08/06/2024 CAGE ASSESSMENT Answer [...] drink first t kathleen in the morning (EYE-CLINICAL DIETICIAN) to steady your nerves or to get [...] encounter Miscellaneous Notes * Telephone Encounter - Kimmie Cabrera - 07/09/2025 11:39 AM EDT Patient is on urology referral triage, called patient to schedule a consult appointment, no answer,left a detailed message to return my call.Kimmie Cabrera RN documented in this encounter Plan of Treatment [...] documented as of this encounter Care Teams Assistant Wrestling Coach Relationship Specialty Start Date End Date Jay Howell MD [address] [place], [place] [address] PCP - General 03/08/21 documented as of this encounter
--- OUTSIDE RECORDS SUMMARY | 2025-07-12 08:54 | XMS_ITS | Encounter Summary ---
Author Organization [employer] ([place], [place], [place], [place]) Address [address] [place] [address] Care Team Providers Care Drum Stock Clerk Name Role Phone Jay Howell MD Primary Care Provider [phone] Encounter Details Date Type Department Care Team (Late st Contact Info) Description 08/28/2020 Transcribed Document [facility] [place] [address] [place] [address] ProviderJessie MD [address] [place], [place] [address] Social History Tobacco Use Types Packs/Day Years Used Date Smoking Tobacco: Never Assessed Comments Unknown Sex and Gender Information Value Date Recorded Sex Assigned at Not on file Legal Sex Female 7:30 PM CDT Gender Identity Not on file Sexual Orientation Not on file documented as of this encounter Miscellaneous Notes * Cerner Conversion Note - Historical ProviderMD - 08/28/2020 9:22 AM ACCOUNTS PAYABLE ASSOCIATE Patient: SKYLER MONTOYA Age: 79 Years Sex: Female : 1940 Subjective Date of Service: 08/28/2020 09:22:21 seen and examined tolerating wound vac well, no bleeding. ok to resume coumadin per Dr. Verde had bad night, explains that she had gas bubbles under her breast, with some tightness EKG non revealing she states she has had this once before and it resolved and now feels good eager to work with PT and OT Vital Signs T: 36.6 ??C TMIN: 36.5 ??C TMAX: 37.1 ??C HR: 65 RR: 16 BP: 167/59 SpO2: 98% Oxygen Settings (Last) Oxygen Therapy Mode: Room air (08/28/20 08:49:00) Oxygen Flow Rate: 2 Liter/Min (08/26/20 14:45:00) Intake & Output Totals Last 24 Hours (7a-7a) Input Total: 876.96 mL Output Total: 0 mL Balance: 876.96 mL Physical Exam General: [Alert and oriented, well nourished, no acute distress]. Neurologic: [Awake, alert, and oriented X3, CN II-XII intact]. Eye: [PERRL, EOMI, normal conjunctiva]. HENT: [Normocephalic, normal hearing, moist oral mucosa] Neck: [no JVD]. Lungs: [Clear to auscultation, non-labored respiration]. Heart: [Normal rate, regular rhythm, no murmur, or edema]. Abdomen: [Soft, mild chest wall tenderness to palpation, non-distended, normal bowel sounds]. Musculoskeletal: [L reid [...] care -ok to resume coumadin per Dr. Verde Uncontrolled HTN, labile and improving -resume home [...] neg 08/25 pcp: Dr. Avtar Moeller dispo: check cardiac markers, resume coumadin, abx per ID. Needs to work with PT and OT. VTE Prophylaxis - Medical Clopidogrel 75 mg, Oral, Tab, Daily, Routine, Start 08/27/20 9:00:00 EST, 08/26/20 16:01:00 EST (CARLO, ТАТЬЯНА) Sequential Compression Device Start: 08/25/20 5:51:00 [...] Date/Time Device Comment 1 Notified Nurse RBV 08/28/2020 06:05 EST Device Comment 1 Notified Nurse RBV 08/27/2020 20:57 EST Device Comment 1 Protocols Followed 08/27/2020 16:24 EST Device Comment 1 Protocols Followed 08/27/2020 10:51 EST Glucose POC2 126 mg/dL (High) 08/28/2020 06:05 EST Glucose POC2 189 mg/dL (High) 08/27/2020 20:57 EST Glucose POC2 145 mg/dL (High) 08/27/2020 16:24 EST Glucose POC2 122 mg/dL (High) 08/27/2020 10:51 EST WBC 4.5 K/uL 08/28/2020 03:49 EST RBC 3.29 Million/uL (Low) 08/28/2020 03:49 EST Hgb 10.5 g/dL (Low) 08/28/2020 03:49 EST Hct 31.7 % (Low) 08/28/2020 03:49 EST MCV 96.4 fL (High) 08/28/2020 03:49 EST MCH 31.9 pg 08/28/2020 03:49 EST MCHC 33.1 Gram/dL 08/28/2020 03:49 EST Platelet Count 139 K/uL (Low) 08/28/2020 03:49 EST MPV 10.4 fL 08/28/2020 03:49 EST RDW 13.7 % 08/28/2020 03:49 EST nRBC 0.020 (High) 08/28/2020 03:49 EST Slide Review No 08/28/2020 03:49 EST PT 17.8 Second(s) (High) 08/28/2020 07:35 EST INR 1.7 (High) 08/28/2020 07:35 EST Electronically signed by [facility], [facility] Conversion French Comber Cerner at 02/04/2023 2:12 PM CDT documented in this encounter Plan of Treatment Not on file documented as of this encounter Visit Diagnoses Not on filedocumented in this encounter Care Teams Drum Stock Clerk Relationship Specialty Start Date End Date Jay Howell MD [address] [place] [phone] PCP - General Emergency Medicine 11/12/23 documented as of this encounter
--- OUTSIDE RECORDS SUMMARY | 2025-07-12 08:54 | XMS_ITS | Encounter Summary ---
Author Organization [employer] ([place], [place], [place], [place]) Address [address] [place] [address] Care Team Providers Care Public Relations Professional Name Role Phone Jay Howell MD Primary Care Provider [phone] Encounter Details Date Type Department Care Team (Late st Contact Info) Description 08/28/2020 Transcribed Document [facility] [place] [address] [place] [address] ProviderJessie MD [address] [place] [address] Social History Tobacco Use Types Packs/Day Years Used Date Smoking Tobacco: Never Assessed Comments Unknown Sex and Gender Information Value Date Recorded Sex Assigned at Not on file Legal Sex Female 7:30 PM CDT Gender Identity Not on file Sexual Orientation Not on file documented as of this encounter Miscellaneous Notes * Cerner Conversion Note - Jessie Yuen MD - 08/28/2020 10:32 AM ALLERGIST IMMUNOLOGIST Patient: SKYLER MONTOYA Age: 79 years Sex: [...] level of muscle per surgery *Operation RIGHT SPACE SYSTEMS OPERATIONS SUPERINTENDENT access - ultrasound guided Aortogram with LEFT lower extremity run-off LEFT PT angioplasty (2.5-4u404ni Nanocross) LEFT peroneal angioplasty (2.5-4z019dn Nanocross) RIGHT SPACE SYSTEMS OPERATIONS SUPERINTENDENT closure (Angioseal) LEFT leg debridement 08/28/20 seen early and sleepy; + pain in [...] pyuria. No other rash. REVIEW OF SYSTEMS: 08/28/20 CONSTITUTIONAL: No fever. No chills or sweats. [...] 16 (AUG 27 18:36) 18 (AUG 27 10:54) SBP H 167 (AUG 28 05:59) H 153 (AUG 27 10:54) H 181 (AUG 28 05:09) DBP L 59 (AUG 28 05:59) L 37 (AUG 27 18:36) 65 (AUG 28 05:09) MAP 86 (AUG 28 05:59) 68 (AUG 27 18:36) 94 (AUG 28 05:09) SpO2 98 (AUG 28 08:49) 94 (AUG 27 10:54) 98 (AUG 27 21:46) GENERAL: The patient is elderly, sleepy EYES: [...] CBC Results (Current Encounter/Past 24 Hours) WBC 4.5 K/uL 08/28/2020 04:30 Hct 31.7 % LOW 08/28/2020 04:30 Hgb 10.5 g/dL LOW 08/28/2020 04:30 Platelet Count 139 K/uL LOW 08/28/2020 04:30 CMP Results (Current Encounter/Past 24 Hours) Creatinine [...] Level 8.8 mg/dL 08/27/2020 03:40 MICRO: ACC: [id number] ORDER: Culture Wound and Stain DATE: 08/25/2020 05:00 SOURCE: Wound SITE: Leg Lower L Reports Final 08/28/2020 08:57 No growth Pre 08/26/2020 06:23 No growth GS 08/25/2020 07:26 No organisms seen. Few White Blood Cells Rare epithelial cells == ACC: [id number] ORDER: Culture AFB and Stain DATE: 08/26/2020 13:56 SOURCE: Surgical Swab SITE: Leg Lower L Reports AFS 08/27/2020 13:07 No Acid Fast Bacilli seen == ACC: [id number] ORDER: Culture Anaerobic DATE: 08/26/2020 13:56 SOURCE: Surgical Swab SITE: Leg Lower L Reports Pre 08/28/2020 07:01 No Anaerobic growth Pre 08/27/2020 07:47 Culture in progress == ACC: [id number] ORDER: Culture Wound and Stain DATE: 08/26/2020 15:23 SOURCE: Surgical Swab SITE: Leg Lower L Reports Pre 08/27/2020 07:14 No growth GS 08/26/2020 18:13 Few White Blood Cells No organisms seen. == ACC: [id number] ORDER: Culture Fungus DATE: 08/26/2020 13:56 SOURCE: Surgical Swab SITE: Leg Lower L Reports SINDI 08/26/2020 16:09 No Fungal elements seen == ACC: [id number] ORDER: Culture Blood DATE: 08/25/2020 05:01 SOURCE: Blood SITE: Reports Pre 08/28/2020 06:01 No growth at 3 days. Pre 08/27/2020 06:01 No growth at 2 days. Pre 08/26/2020 06:01 No growth at 1 day. Pre 08/25/2020 23:02 Culture less than 24 Hrs old == ACC: [id number] ORDER: Culture Blood DATE: 08/25/2020 05:01 SOURCE: Blood SITE: Reports Pre 08/28/2020 06:01 No growth at 3 days. Pre 08/27/2020 06:01 No growth at 2 days. Pre 08/26/2020 06:01 No growth at 1 day. Pre 08/25/2020 23:02 Culture less than 24 Hrs old == Radiology Results (Last 48 hours) [id number] -- 08/25/2020 05:53 CT Abdomen WO W [...] on filedocumented in this encounter Care Teams Public Relations Professional Relationship Specialty Start Date End Date Jay Howell MD [address] [place] [phone] PCP - General Emergency Medicine 11/12/23 documented as of this encounter
--- OUTSIDE RECORDS SUMMARY | 2025-07-12 08:54 | XMS_ITS | Encounter Summary ---
Author Organization [employer] ([place], [place], [place], [place]) Address [address] [place] [address] Care Team Providers Care Va Underwriter Name Role Phone Jay Howell MD Primary Care Provider [phone] Encounter Details Date Type Department Care Team (Late st Contact Info) Description 08/28/2020 Transcribed Document [facility] [place] Medicine [address] [place] [address] ProviderJessie MD [address] [place] [address] Social History Tobacco Use Types Packs/Day Years Used Date Smoking Tobacco: Never Assessed Comments Unknown Sex and Gender Information Value Date Recorded Sex Assigned at Not on file Legal Sex Female 7:30 PM CDT Gender Identity Not on file Sexual Orientation Not on file documented as of this encounter Miscellaneous Notes * Cerner Conversion Note - Jessie Yuen MD - 08/28/2020 3:33 PM GRAPHICS PROGRAMMER On Going Discharge Planning Entered On: 08/28/2020 15:37 EST Performed On: 08/28/2020 15:33 EST by KAVITA PELLETIER RN-Steel Pan Form Placing SupervisorLayboy Operator Progress Note Discharge Arrangements : Patient Post-Acute Information Patient Name: SYKLER MONTOYA Gender: Female : [birth year] Age: 79 Years No Post-Acute Placement(s) Listed No Post-Acute Service(s) Listed No Curaspan Referral(s) Listed Discharge Options Discussed with Patient : DME, Home Health Barriers to Discharge Identified : Clinical Condition of Patient Barriers to Discharge Unresolved : Clinical Condition of Patient Is the Patient Meeting Medical Necessity : Yes KAVITA PELLETIER RN-Steel Pan Form Placing Supervisor - 08/28/2020 15:33 EST Narrative Progress Note Narrative Progress Note : Cx's still pending. IV Vanc/Dapto. Vasc s/o. Pt will need NPWT-CM will obtain prior to dc. List of COUNTER HELPER's for [place] given to pt. She will choose and inform CM. Coumadin restarted today. CM will continue to follow. Historical Progress Note : Pt is s/p LLE [...] past after her SIMONA and went to [facility] prior to home with HH. She is agreeable to look at list of COUNTER HELPER to make an informed decision based on quality and resource use information. Cx's are pending to determine need for IV abx at home. Likely dc in a few days. CM will continue to follow. KAVITA PELLETIER RN-Steel Pan Form Placing Supervisor - 08/27/20 15:14:36 KAVITA PELLETIER RN-Steel Pan Form Placing Supervisor - 08/28/2020 15:33 EST Electronically signed by Sivan [facility] Conversion General Sales Manager Cerner at 02/04/2023 2:13 PM CDT documented in this encounter Plan of Treatment Not on file documented as of this encounter Visit Diagnoses Not on filedocumented in this encounter Care Teams Va Underwriter Relationship Specialty Start Date End Date Jay Howell MD [address] [place] [phone] PCP - General Emergency Medicine 11/12/23 documented as of this encounter
--- OUTSIDE RECORDS SUMMARY | 2025-07-12 08:54 | XMS_ITS | Encounter Summary ---
Author Organization [employer] ([place], [place], [place], [place]) Address [address] [place] [address] Care Team Providers Care Mate Fishing Vessel Name Role Phone Jay Hoewll MD Primary Care Provider [phone] Encounter Details Date Type Department Care Team (Late st Contact Info) Description 08/28/2020 Transcribed Document [facility] [place] Family Medicine [address] [place] [address] ProviderJessie MD [address] [place] [address] Social History Tobacco Use Types Packs/Day Years Used Date Smoking Tobacco: Never Assessed Comments Unknown Sex and Gender Information Value Date Recorded Sex Assigned at Not on file Legal Sex Female 7:30 PM CDT Gender Identity Not on file Sexual Orientation Not on file documented as of this encounter Miscellaneous Notes * Cerner Conversion Note - Historical MD Alpa - 08/28/2020 9:30 AM INDUSTRIAL CAFETERIA MANAGER Risk Adjustment Specialist Inpatient Document Entered On: 08/28/2020 11:43 EST Performed On: 08/28/2020 11:40 EST by KARRIE FERNANDES Rn-Educator Diabetes Risk Adjustment Specialist Inpatient Document Reason for Risk Adjustment Specialist Visit : Physician order Endocrine/Metabolic History : Diabetes Diabetes Type : Diabetes, Type 2 Hyperglycemic Medication Regime, History : Oral Diabetes Education Assessment Summary : Patient chart reviewed after consultation for diabetes education. Patient seen today. Patient states that she has had diabetes for 15 years and follows with Avtar Moeller. She states that she takes Metformin 500mg BID and denies any complications. Patient A1c at this admission is 6.4%. Patient denies needs to for education. KARRIE FERNANDES, Rn-Educator Diabetes - 08/28/2020 11:40 EST Teaching/Learning Assessment Barriers To Learning : None evident Individuals Taught : Patient Readiness to Learn : Cooperative Baseline Knowledge of Topic : Good Readiness to Learn : Demonstration KARRIE FERNANDES, Rn-Educator Diabetes - 08/28/2020 11:40 EST Education, IP Diabetes Diabetes Inpatient Education Grid Diabetes : Verbalizes understanding KARRIE FERNANDES Rn-Eductheresa Diabetes - 08/28/2020 11:40 EST inpatient diabetes education grid A1C : Verbalizes understanding (Comment: A1c at 6.4% [KARRIE FERNANDES Rn-Eductheresa Diabetes - 08/28/2020 11:40 EST] ) Oral Agents : Verbalizes understanding KARRIE FERNANDES Rn-Educator Diabetes - 08/28/2020 11:40 EST Diabetes Teaching Follow-up Plan : Patient/Caregiver declines education KARRIE FERNANDES Rn-Educator Diabetes - 08/28/2020 11:40 EST documented in this encounter Plan of Treatment Not on file documented as of this encounter Visit Diagnoses Not on filedocumented in this encounter Care Teams Mate Fishing Vessel Relationship Specialty Start Date End Date Jay Howell MD [address] [place] [phone] PCP - General Emergency Medicine 11/12/23 documented as of this encounter
--- OUTSIDE RECORDS SUMMARY | 2025-07-12 08:54 | XMS_ITS | Encounter Summary ---
Author Organization [employer] ([place], [place], [place], [place]) Address [address] [place] [address] Care Team Providers Care Animal Sticker Name Role Phone Jay Howell MD Primary Care Provider [phone] Encounter Details Date Type Department Care Team (Late st Contact Info) Description 08/27/2020 Transcribed Document [facility] [place] [address] [place] [address] ProviderJessie MD [address] [place] [address] Social History Tobacco Use Types Packs/Day Years Used Date Smoking Tobacco: Never Assessed Comments Unknown Sex and Gender Information Value Date Recorded Sex Assigned at Not on file Legal Sex Female 7:30 PM CDT Gender Identity Not on file Sexual Orientation Not on file documented as of this encounter Miscellaneous Notes * Cerner Conversion Note - Historical ProviderMD - 08/27/2020 2:40 PM CERTIFIED MEDICAL ASST WOCN Inpatient Documentation Entered On: 08/27/2020 14:42 EST Performed On: 08/27/2020 14:40 EST by Sujata Mckee Rn-Enterostomal WOCN Admission Date : Admit Date 08/25/2020 05:[address] : Diagnosis (6) Medical screening exam General medical Contusion of left lower leg, initial encounter Cellulitis of unspecified part of limb Cutaneous abscess, unspecified Cutaneous abscess, unspecified Reason for WOCN Visit : Initial consult Admitting Diagnosis ST : Reason for Admission left leg hematoma, cellulitis Past Medical History/Comorbidities : *Operation 08/26 RIGHT E LEARNING DEVELOPER access - ultrasound guided Aortogram with LEFT lower extremity run-off LEFT PT angioplasty (2.5-1j747pt Nanocross) LEFT peroneal angioplasty (2.5-2j303ml Nanocross) RIGHT E LEARNING DEVELOPER closure (Angioseal) LEFT leg debridement WOCN Assessment Summary : Vascular sugery requests application of NPWT to anterior LLE. Patient s/p debridement, denies pain. Gently removed old dressing. Wound bed red with SS drainage. Periwound with bruising, erythema and edema. Wound cleansed with NS< periwound prepped and draped. 2 pieces of black granufoam to wound bed. Seal obtained without air leak. Set to 120mmHG cont negative pressure. Picture taken and placed in chart. Patient tolerated dressing change with minimal discomfort. She is very excited to have the NPWT system. Will follow as indicated. Sujata Mckee Rn-Enterostomal - 08/27/2020 14:40 EST Wound & Pressure Ulcer WOCN Wound Pressure Ulcer Documentation : Ujgigowgi-Kowicl-Xfzp Abnormality: Leg Left Lower, Anterior on 08/27/2020 14:38 by Sujata Mckee Rn-Enterostomal I/W/A Present on Admission to Hospital: Yes I/W/A Type: Other: a/p debridement I/W/A Dressing Status: Moist I/W/A Dressing Activity: Assessed, Dressing changed I/W/A Wound Date of Dressing Change: :[id number]:0.688792:0:0 I/W/A Wound Bed Description: Full-thickness I/W/A Bed Color(s): Red I/W/A Wound Edge: Attached I/W/A Surrounding Tissue: Other: bruising and edema I/W/A Length: 2 I/W/A Width: 2.5 I/W/A Depth Measurement: 1 I/W/A Drainage Amount: Minimal I/W/A Drainage Description: Serosanguineous I/W/A Drainage Odor: None I/W/A Photographed: Yes I/W/A Cleansing/Irrigation: Sterile saline I/W/A Skin Treatment: Barrier film I/W/A Dressing Type/Treatment: NPWT Negative Pressure Wound Therapy Activity: Initial set-up application NPWT Inpatient Start Date: :[id number]:0.819543:0:0 NPWT Device Used: Renasys Type of Foam/Gauze Applied: Black Foam Number of Black Foam Gauze Applied: 1 Number of TRAC Pads Applied: 1 NPWT Pressure: Continuous NPWT Pressure Settin NPWT Canister Changed: Yes I/W/A Incision/Wound Healing: Initial WOCN Ostomy Documentation : No ostomy assessments reported. Sujata Mckee Rn-Enterostomal - 08/27/2020 14:40 EST Electronically signed by Sivan [facility] Conversion Soda Dry House Operator Cerner at 02/04/2023 1:56 PM CDT documented in this encounter Plan of Treatment Not on file documented as of this encounter Visit Diagnoses Not on filedocumented in this encounter Care Teams Animal Sticker Relationship Specialty Start Date End Date Jay Howell MD [address] [place] [phone] PCP - General Emergency Medicine 11/12/23 documented as of this encounter
--- OUTSIDE RECORDS SUMMARY | 2025-07-12 08:54 | XMS_ITS | Encounter Summary ---
Author Organization [employer] ([place], [place], [place], [place]) Address [address] [place] [address] Care Team Providers Care Drying Tumbler Operator Name Role Phone Jay Howell MD Primary Care Provider [phone] Encounter Details Date Type Department Care Team (Late st Contact Info) Description 03/19/2021 Transcribed Document [facility] [place] [address] [place] [address] ProviderJessie MD [address] [place] [phone] Social History Tobacco Use Types Packs/Day Years Used Date Smoking Tobacco: Never Assessed Comments Unknown Sex and Gender Information Value Date Recorded Sex Assigned at Not on file Legal Sex Female 7:30 PM CDT Gender Identity Not on file Sexual Orientation Not on file documented as of this encounter Miscellaneous Notes * Cerner Conversion Note - Historical ProviderMD - 03/19/2021 3:48 PM CDT Final Discharge Planning Entered On: 03/19/2021 15:50 EDT Performed On: 03/19/2021 15:48 EDT by Krystina Giang V, Sterile Supply Technician Cmm Technician Final Discharge Planning Discharge Arrangements : Patient Post-Acute Information Patient Name: SKYLER MONTOYA Gender: Female : [birth year] Age: 80 Years No Post-Acute Placement(s) Listed No Post-Acute Service(s) Listed No Curaspan Referral(s) Listed Important Medicare Message Reviewed With : Patient Important Medicare Message Reviewed D/T : 03/19/2021 15:48 EDT Transportation Needs : Family/Friend Follow Up Appointment Scheduled : Yes Is Patient High/Moderate Readmission Risk? : Yes Moderate Readmission Risk - Home, no home health : Make post-discharge physician appointment within 5-7 days of discharge. Patient/Family Notified of Plan : Yes Support Person/Pt Rep Notified of Plan : Yes Is Patient Ready for Discharge? : Yes Physician Notified Patient is Ready for Discharge? : Yes Discharge To Care Management : Home/Residential/Intermediate or Self Care -01 Krystina Giang V, Sterile Supply Technician [facility] [place] 03/19/2021 15:48 EDT Final Narrative Note Final Narrative Note : DC home with spouse. Follow up with outpatient Physical therapy in home town. IM signed. Krystina Giang V Sterile Supply Technician [facility] [place] 03/19/2021 15:48 EDT Electronically signed by [facility], [facility] Conversion Adolescent Counselor Cerner at 02/04/2023 2:08 PM CDT documented in this encounter Plan of Treatment Not on file documented as of this encounter Visit Diagnoses Not on filedocumented in this encounter Care Teams Drying Tumbler Operator Relationship Specialty Start Date End Date Jay Howell MD [address] [place] [phone] PCP - General Emergency Medicine 11/12/23 documented as of this encounter
[2025-07-12 09:26] LABS: Hemoglobin A1C 5.4 % (4.0-6.0)
== END 2025-07-12 23:59 | disposition home or self-care (01) ==
PROVIDERS: PCP Family Medicine; Visit Provider Family Medicine
DX: E11.22 Type 2 diabetes mellitus with diabetic chronic kidney disease (principal); N18.2 Chronic kidney disease, stage 2 (mild)
CPT/HCPCS: 36415; 80053; 80061; 80177; 83036; 85025

== ENCOUNTER 2025-07-22 07:44 | Outpatient (CLI) | payer MEDICARE, SELFPAY ==
--- OUTSIDE RECORDS SUMMARY | 2025-07-22 07:46 | XMS_ITS | Encounter Summary ---
Author Organization [employer] ([place], [place], [place], [place]) Address [address] [place] [address] Care Team Providers Care Ruching Machine Operator Name Role Phone Jay Howell MD Primary Care Provider [phone] Encounter Details Date Type Department Care Team (Late st Contact Info) Description 08/25/2020 Transcribed Document [facility] [place] [address] [place] [address] ProviderJessie MD [address] [place] [address] Social History Tobacco Use Types Packs/Day Years Used Date Smoking Tobacco: Never Assessed Comments Unknown Sex and Gender Information Value Date Recorded Sex Assigned at Not on file Legal Sex Female 7:30 PM CDT Gender Identity Not on file Sexual Orientation Not on file documented as of this encounter Miscellaneous Notes * Cerner Conversion Note - Historical MD Alpa - 08/25/2020 10:53 AM PATIENT SERVICES CLERK DATE OF CONSULTATION: 08/25/2020 INFECTIOUS DISEASE CONSULTATION [...] team following as above. Discussed with them. /[id number] MD VANESSA Campa/AQ / VANESSA / MODL /[id number] CC: MD David Campa MD Electronically signed by [facility], [facility] Conversion Tumbler Operator Cerner at 02/04/2023 2:05 PM CDT documented in this encounter Plan of Treatment Not on file documented as of this encounter Visit Diagnoses Not on filedocumented in this encounter Care Teams Ruching Machine Operator Relationship Specialty Start Date End Date Jay Howell MD [address] [place] [phone] PCP - General Emergency Medicine 11/12/23 documented as of this encounter
--- OUTSIDE RECORDS SUMMARY | 2025-07-22 07:46 | XMS_ITS | Encounter Summary ---
Author Organization [employer] ([place], [place], [place]) Address [address] [place] [address] Care Team Providers Care Figure Clerk Name Role Phone Jay Howell MD Primary Care Provider [phone] Encounter Details Date Type Department Care Team (Late st Contact Info) Description 08/25/2020 Transcribed Document [facility] [place] Family Medicine [address] [place] [address] ProviderJessie MD [address] [place] [address] Social History Tobacco Use Types Packs/Day Years Used Date Smoking Tobacco: Never Assessed Comments Unknown Sex and Gender Information Value Date Recorded Sex Assigned at Not on file Legal Sex Female 7:30 PM CDT Gender Identity Not on file Sexual Orientation Not on file documented as of this encounter Miscellaneous Notes * Cerner Conversion Note - Jessie Yuen MD - 08/25/2020 4:33 AM PAN DEVULCANIZER ED Triage Entered On: 08/25/2020 4:45 EST [...] : 3 - Urgent Tracking Group : [facility] ED Deisi Vasquez RN - 08/25/2020 4:41 [...] 04:45:44 EST) Problems(Active) Apnea, sleep (SNOMED CT :521814331 ) Name of Problem: Apnea, sleep ; Recorder: JUAN LUIS GIL RN; Confirmation: Confirmed ; Classification: Medical ; Code: 658209342 ; Contributor System: PowerChart ; Last Updated: 11/12/2014 10:12 EST ; Life Cycle Date: 11/12/2014 ; Life Cycle Status: Active ; Vocabulary: SNOMED CT Arthritis (SNOMED CT :2945234 ) Name of Problem: Arthritis ; Recorder: KENYON CHAMBERS RN; Confirmation: Confirmed ; Classification: Medical ; Code: 9413128 ; Contributor System: PowerChart ; Last Updated: 04/10/2016 8:04 EDT ; Life Cycle Date: 08/13/2013 ; Life Cycle Status: Active ; Vocabulary: SNOMED CT Atrial fibrillation with RVR (SNOMED CT :4208678498 ) Name of Problem: Atrial fibrillation with RVR ; Recorder: SANG RICO APRN; Confirmation: Confirmed ; Classification: Medical ; Code: 5049095375 ; Contributor System: PowerChart ; Last Updated: 04/10/2016 8:05 EDT ; Life Cycle Date: 04/10/2016 ; Life Cycle Status: Active ; Responsible Provider: SAGN RICO APRN; Vocabulary: SNOMED CT Blood clot (SNOMED CT :643178459 ) Name of Problem: Blood clot ; Recorder: KENYON CHAMBERS RN; Confirmation: Confirmed ; Classification: Patient Stated ; Code: 970068382 ; Contributor System: PowerChart ; Last Updated: [...] Vocabulary: Patient Care Chest pain (SNOMED CT :36978300 ) Name of Problem: Chest pain ; Recorder: SANG RICO APRN; Confirmation: Complaint of ; Classification: Medical ; Code: 00216762 ; Contributor System: Cardiovascular SystemsChart ; Last Updated: 04/10/2016 8:05 EDT ; Life Cycle Status: Active ; Responsible Provider: SANG RICO APRN; Vocabulary: SNOMED CT Chronic anticoagulation (SNOMED CT :629958842 ) Name of Problem: Chronic anticoagulation ; Recorder: SANG RICO APRN; Confirmation: Confirmed ; Classification: Medical ; Code: 877236164 ; Contributor System: PowerChart ; Last Updated: 04/10/2016 8:05 EDT ; Life Cycle Date: 04/10/2016 ; Life Cycle Status: Active ; Responsible Provider: SANG RICO APRN; Vocabulary: SNOMED CT Clotting disorder (SNOMED CT :209482513 ) Name of Problem: Clotting disorder ; Recorder: KENYON CHAMBERS RN; Confirmation: Confirmed ; Classification: Patient Stated ; Code: 705740947 ; Contributor System: Cardiovascular SystemsChart ; Last Updated: 03/28/2014 19:29 EDT ; Life Cycle Date: 08/13/2013 ; Life Cycle Status: Active ; Vocabulary: SNOMED CT COPD (SNOMED CT :62109415 ) Name of Problem: COPD ; Recorder: KENYON CHAMBERS RN; Confirmation: Confirmed ; Classification: Medical ; Code: 75947313 ; Contributor System: Cardiovascular SystemsChart ; Last Updated: 04/10/2016 8:03 EDT ; Life Cycle Date: 08/13/2013 ; Life Cycle Status: Active ; Vocabulary: SNOMED CT Coronary artery disease (SNOMED CT :8630402149 ) Name of Problem: Coronary artery disease ; Recorder: KENYON CHAMBERS RN; Confirmation: Confirmed ; Classification: Medical ; Code: 3664619283 ; Contributor System: Cardiovascular SystemsChart ; Last Updated: 04/10/2016 8:03 EDT ; Life Cycle Date: 08/13/2013 ; Life Cycle Status: Active ; Vocabulary: SNOMED CT Diabetes mellitus (SNOMED CT :353734520 ) Name of Problem: Diabetes mellitus ; Recorder: KENYON CHAMBERS RN; Confirmation: Confirmed ; Classification: Medical ; Code: 256891576 ; Contributor System: Cardiovascular SystemsChart ; Last Updated: 04/10/2016 8:04 EDT ; Life Cycle Date: 08/13/2013 ; Life Cycle Status: Active ; Vocabulary: SNOMED CT Emphysema (SNOMED CT :389040572 ) Name of Problem: Emphysema ; Recorder: JUAN LUIS GIL RN; Confirmation: Confirmed ; Classification: Medical ; Code: 948098055 ; Contributor System: PowerChart ; Last Updated: 11/12/2014 10:11 EST ; Life Cycle Date: 11/12/2014 ; Life Cycle Status: Active ; Vocabulary: SNOMED CT GERD - Gastro-esophageal reflux disease (SNOMED CT :2874524081 ) Name of Problem: GERD - Gastro-esophageal reflux disease ; Recorder: KENYON CHAMBERS RN; Confirmation: Confirmed ; Classification: Medical ; Code: 5096555872 ; Contributor System: PowerChart ; Last Updated: [...] Patient Care High blood pressure (SNOMED CT :62394479 ) Name of Problem: High blood pressure ; Recorder: KENYON CHAMBERS RN; Confirmation: Confirmed ; Classification: Medical ; Code: 26571295 ; Contributor System: PowerChart ; Last Updated: 04/10/2016 8:03 EDT ; Life Cycle Date: 08/13/2013 ; Life Cycle Status: Active ; Vocabulary: SNOMED CT History of obstructive sleep apnea (IMO :28254386 ) Name of Problem: History of obstructive sleep apnea ; Recorder: SYSTEM, SYSTEM; Confirmation: Confirmed ; Classification: Medical ; Code: 16581849 ; Last Updated: 12/20/2018 12:01 EST ; Life Cycle Date: 12/20/2018 ; Life Cycle Status: Active ; Vocabulary: IMO Hx of pulmonary embolus (SNOMED CT :679902485 ) Name of Problem: Hx of pulmonary embolus ; Recorder: SANG RICO APRN; Confirmation: Confirmed ; Classification: Medical ; Code: 124909026 ; Contributor System: PowerChart ; Last Updated: 04/10/2016 8:05 EDT ; Life Cycle Date: 04/10/2016 ; Life Cycle Status: Active ; Responsible Provider: SANG RICO APRN; Vocabulary: SNOMED CT Hyperlipidemia (SNOMED CT :91457766 ) Name of Problem: Hyperlipidemia ; Recorder: KENYON CHAMBERS RN; Confirmation: Confirmed ; Classification: Medical ; Code: 03965480 ; Contributor System: PowerChart ; Last Updated: 04/10/2016 8:03 EDT ; Life Cycle Date: 08/13/2013 ; Life Cycle Status: Active ; Vocabulary: SNOMED CT Multiple renal cysts (SNOMED CT :552803724 ) Name of Problem: Multiple renal cysts ; Recorder: KENYON CHAMBERS RN; Confirmation: Confirmed ; Classification: Medical ; Code: 742568079 ; Contributor System: PowerChart ; Last Updated: 04/10/2016 8:04 EDT ; Life Cycle Date: 08/13/2013 ; Life Cycle Status: Active ; Vocabulary: SNOMED CT Stented coronary artery (SNOMED CT :2283646647 ) Name of Problem: Stented coronary artery ; Recorder: KENYON CHAMBERS RN; Confirmation: Confirmed ; Classification: Medical ; Code: 1631193915 ; Contributor System: PowerChart ; Last Updated: 04/10/2016 8:03 EDT ; Life Cycle Date: 08/13/2013 ; Life Cycle Status: Active ; Vocabulary: SNOMED CT UTI - Urinary tract infection (SNOMED CT :2968622970 ) Name of Problem: UTI - Urinary tract infection ; Recorder: KENYON CHAMBERS RN; Confirmation: Confirmed ; Classification: Medical ; Code: 4563595708 ; Contributor System: PowerChart ; Last Updated: 04/10/2016 8:04 EDT ; Life Cycle Date: 08/13/2013 ; Life Cycle Status: Active ; Vocabulary: SNOMED CT Diagnoses(Active) Medical screening exam Date: 08/25/2020 ; Diagnosis Type: Reason For Visit ; Confirmation: Complaint of ; Clinical Dx: Medical screening exam ; Classification: Medical ; Clinical Service: Non-Specified ; Code: PNED ; Probability: 0 ; Diagnosis Code: [id number] ED Height and Weight Height Source : Stated Height Entry Format : [place] Height, Feet : 5 ft(Converted to: 152 cm, 60 Inch) Height, Inches : 3 Inch(Converted to: 0 ft 3 Inch, 7.62 cm) Clinical Height : 160.02 cm Weight Source, ED : Critical estimated dosing weight Weight Entry Format : [place] Weight, Pounds : 152 lb Clinical Dosing Weight : 69.09 kg Body Surface Area (BSA) : 1.72 m2 Body Mass Index : 27 kg/m2 (HI) [place] Body Weight (IBW) : 52.02 kg Deisi Vasquez RN - 08/25/2020 4:41 EST Electronically signed by [facility], [facility] Conversion Commercial Credit Analyst Cerner at 02/04/2023 1:59 PM CDT documented in this encounter Plan of Treatment Not on file documented as of this encounter Visit Diagnoses Not on filedocumented in this encounter Care Teams Figure Clerk Relationship Specialty Start Date End Date Jay Howell MD [address] [place] [phone] PCP - General Emergency Medicine 11/12/23 documented as of this encounter
--- OUTSIDE RECORDS SUMMARY | 2025-07-22 07:46 | XMS_ITS | Encounter Summary ---
Author Organization [employer] ([place], [place], [place], [place]) Address [address] [place] [address] Care Team Providers Care Cardiac Care Nurse Name Role Phone Jay Howell MD Primary Care Provider [phone] Encounter Details Date Type Department Care Team (Late st Contact Info) Description 08/25/2020 Transcribed Document [facility] [place] [address] [place] [address] ProviderJessie MD [address] [place] [address] Social History Tobacco Use Types Packs/Day Years Used Date Smoking Tobacco: Never Assessed Comments Unknown Sex and Gender Information Value Date Recorded Sex Assigned at Not on file Legal Sex Female 7:30 PM CDT Gender Identity Not on file Sexual Orientation Not on file documented as of this encounter Miscellaneous Notes * Cerner Conversion Note - Jessie ProviderMD - 08/25/2020 4:33 AM CASHIER TUBE ROOM ED Assessment Entered On: 08/25/2020 5:16 EST Performed On: 08/25/2020 5:12 EST by Yajaira Magallon, automatic seamer Quick Look Assessment Level of Consciousness : Alert, Awake Affect/Behavior : Appropriate, Calm, Cooperative Orientation : Oriented x 4 Skin Temperature : Warm Skin Description : Normal for ethnicity Yajaira Magallon Rn - 08/25/2020 5:12 EST ED General-Functional Assess Information Obtained From : Patient Preferred Communication Mode : Verbal Communication Barrier : None Primary Language : Maltese Any Spiritual/Cultural Needs or Requests : No [...] Magallon Rn - 08/25/2020 5:12 EST] ) Yajaria Magallon Rn - 08/25/2020 5:12 EST Neurologic ASMT, ED Neurologic Assessment WDL : WDL Yajaira Magallon Rn - 08/25/2020 5:12 EST Electronically signed by Sivan, [facility] Conversion Engineering Associate Cerner at 02/04/2023 2:02 PM CDT documented in this encounter Plan of Treatment Not on file documented as of this encounter Visit Diagnoses Not on filedocumented in this encounter Care Teams Cardiac Care Nurse Relationship Specialty Start Date End Date Jay Howell MD [address] [place] [phone] PCP - General Emergency Medicine 11/12/23 documented as of this encounter
--- OUTSIDE RECORDS SUMMARY | 2025-07-22 07:46 | XMS_ITS | Encounter Summary ---
Author Organization [employer] ([place], [place], [place], [place]) Address [address] [place] [address] Care Team Providers Care Non Linear Editor Name Role Phone Jay Howell MD Primary Care Provider [phone] Encounter Details Date Type Department Care Team (Late st Contact Info) Description 08/25/2020 Transcribed Document [facility] [place] Family Medicine [address] [place] [address] ProviderJessie MD [address] [place] [address] Social History Tobacco Use Types Packs/Day Years Used Date Smoking Tobacco: Never Assessed Comments Unknown Sex and Gender Information Value Date Recorded Sex Assigned at Not on file Legal Sex Female 7:30 PM CDT Gender Identity Not on file Sexual Orientation Not on file documented as of this encounter Miscellaneous Notes * Cerner Conversion Note - Jessie Yuen MD - 08/25/2020 5:05 AM RADIAL ARM SAW OPERATOR Patient: SKYLER MONTOYA Age: 79 years [...] 06/13/2020 8:52 EVA LAWS RN PCI w/ [place] stent to D1 Coronary artery bypass graft ([id number]) in 1992 at 52 Years. femur repair. Appendectomy (110964832). uterine suspension. Hysterectomy (382628550). back surgury. Cholecystectomy (68166828). Hip replacement (9107094325). cataract surgury. . Family history: Cardiomyopathy Child [...] EST Height Source Stated Height Entry Format [place] Height/Length, SPANISH (ft) 5 ft Height/Length SPANISH 3 Inch CLINICALHEIGHT 160.02 cm [place] Body Weight 52.02 kg Weight Source, ED Critical estimated dosing weight Weight Entry Format [place] Weight [place] lb 152 lb CLINICALWEIGHT 69.09 kg Body [...] Stain: Ordered ED Fall Risk Documented: ED hay stacker operator: Normal Saline 1,000 mL: 75 mL/Hr, IntraVENous [...] Application, Topical, TID, 22 Gram, 0 Refill(s) [place] 7.5 mg-325 mg oral tablet: 1 Tab, [...] % 32.7 % Lymph # 1.98 x10(3)/uL [place] % 10.2 % HI [place] # 0.62 K/uL [place] % 0.0 % [...] Care: Med-Surg, Admitting: BETH DAVALOS MD-INT . documented in this encounter Plan of Treatment Not on file documented as of this encounter Visit Diagnoses Not on filedocumented in this encounter Care Teams Non Linear Editor Relationship Specialty Start Date End Date Jay Howell MD [address] [place] [phone] PCP - General Emergency Medicine 11/12/23 documented as of this encounter
--- OUTSIDE RECORDS SUMMARY | 2025-07-22 07:46 | XMS_ITS | Clinical Summary ---
Author Organization [facility] Address [address] [place] [address], [address] [place] [address] Care Team Providers Care Tin Can Feeder Name Role Phone Jay Howell MD Primary Care Provider [phone] Allergies Active Allergy Reactions Criticality Noted Date Comments Nitrofurantoin Hives,Itching,Other (See Comments),Rash Medium 06/14/2013 Macrobid Medications No known medications Encounters Date Type Department Care Team Description 04/25/2025 3:00 PM EDT Office Visit [facility], [place] [address] Luis Upton MD Nontraumatic complete tear of [...] ID:Not on file Type:Not on file Address: [place] [id number] Care Teams Tin Can Feeder Relationship Specialty Start Date End Date Jay Howell MD [address] [place] [address] [place] Poe [phone] PCP - General Emergency Medicine 03/06/25
--- OUTSIDE RECORDS SUMMARY | 2025-07-22 07:46 | XMS_ITS | Encounter Summary ---
Author Organization [employer] ([place], [place], [place], [place]) Address [address] [place] [address] Care Team Providers Care Asset Protection Detective Name Role Phone Jay Howell MD Primary Care Provider [phone] Encounter Details Date Type Department Care Team (Late st Contact Info) Description 08/25/2020 Transcribed Document [facility] [place] [address] [place] [address] ProviderJessie MD [address] [place] [address] Social History Tobacco Use Types Packs/Day Years Used Date Smoking Tobacco: Never Assessed Comments Unknown Sex and Gender Information Value Date Recorded Sex Assigned at Not on file Legal Sex Female 7:30 PM CDT Gender Identity Not on file Sexual Orientation Not on file documented as of this encounter Miscellaneous Notes * Cerner Conversion Note - Jessie Yuen MD - 08/25/2020 7:11 AM CIGAR PACKER Pain Assessment Entered On: 08/26/2020 1:56 EST [...] on filedocumented in this encounter Care Teams Asset Protection Detective Relationship Specialty Start Date End Date Jay Howell MD [address] [place] [phone] PCP - General Emergency Medicine 11/12/23 documented as of this encounter
--- OUTSIDE RECORDS SUMMARY | 2025-07-22 07:46 | XMS_ITS | Encounter Summary ---
Author Organization [employer] ([place], [place], [place], [place]) Address [address] [place] [address] Care Team Providers Care Folder Machine Adjuster Name Role Phone Jay Howell MD Primary Care Provider [phone] Encounter Details Date Type Department Care Team (Late st Contact Info) Description 03/17/2021 Transcribed Document [facility] [place] Family Medicine [facility] [place] [address] ProviderJessie MD [address] [place], [place] [address] Social History Tobacco Use Types Packs/Day Years [...] - 03/17/2021 12:33 EDT Electronically signed by [facility], [facility] Conversion Poultry Pathologist Cerner at 02/04/2023 1:58 PM CDT documented in this encounter Plan of Treatment Not on file documented as of this encounter Visit Diagnoses Not on filedocumented in this encounter Care Teams Folder Machine Adjuster Relationship Specialty Start Date End Date Jay Howell MD [address] [place] [phone] PCP - General Emergency Medicine 11/12/23 documented as of this encounter
--- OUTSIDE RECORDS SUMMARY | 2025-07-22 07:46 | XMS_ITS | Encounter Summary ---
Author Organization [employer] ([place], [place], [place], [place]) Address [address] [place] [address] Care Team Providers Care Roll Threader Operator Name Role Phone Jay Howell MD Primary Care Provider [phone] Encounter Details Date Type Department Care Team (Late st Contact Info) Description 03/16/2021 Transcribed Document [facility] [place] Family Medicine [address] [place] [address] ProviderJessie MD [address] [place], [place] [address] Social History Tobacco Use Types Packs/Day Years [...] on filedocumented in this encounter Care Teams Roll Threader Operator Relationship Specialty Start Date End Date Jay Howell MD [address] [place] [phone] PCP - General Emergency Medicine 11/12/23 documented as of this encounter
--- OUTSIDE RECORDS SUMMARY | 2025-07-22 07:46 | XMS_ITS | Encounter Summary ---
Author Organization [employer] ([place], [place], [place], [place]) Address [address] [place] [address] Care Team Providers Care High School Hvac R Instructor Name Role Phone Jay Howell MD Primary Care Provider [phone] Encounter Details Date Type Department Care Team (Late st Contact Info) Description 03/17/2021 Transcribed Document [facility] Cardiology [address] [place], [place] [phone] Jorje Bení[place] [address] [place] [address] [address] [place] [address] Social History Tobacco Use Types Packs/Day Years Used Date Smoking Tobacco: Never Assessed Comments Unknown Sex and Gender Information Value Date Recorded Sex Assigned at Not on file Legal Sex Female 7:30 PM CDT Gender Identity Not on file Sexual Orientation Not on file documented as of this encounter Miscellaneous Notes * Cerner Conversion Note - Jorje Benítze MD - 03/17/2021 10:01 AM EDT Patient: SKYLER MONTOYA Age: 80 years Sex: Female : 1940 Associated Diagnoses: None Author: JORJE BENÍTEZ MD-[facility] Basic Information Cloth Feeder: Dr. Adry Dumas Chief Complaint Syncope History of Present Illness The patient is an unfortunate 80-year-old female with a known history atherosclerotic cardiovascular disease???status post coronary artery bypass grafting as well as multiple PCI's most recently 2019, hypertension, dyslipidemia, paroxysmal/persistent atrial fibrillation on chronic warfarin, history of carotid disease, anxiety, diabetes mellitus type 2, COPD, and DVT/pulmonary embolism who presented to [facility] after suffering a several episode at home. [...] Vitamins oral tablet 1 Tab, Oral, Daily [place] 7.5 mg-325 mg oral tablet 1 Tab, [...] Bedtime Problem list: All Problems Arthritis / 4567994 / Confirmed Atrial fibrillation with RVR / 0876879271 / Confirmed Blood clot / 467431830 / Confirmed Cataract / Confirmed Chest pain / 50400911 / Complaint of Clotting disorder / 575963449 / Confirmed COPD / 68224527 / Confirmed Coronary artery disease / 2864364513 / Confirmed Diabetes mellitus / 517386339 / Confirmed GERD - Gastro-esophageal reflux disease / 9049269124 / Confirmed Glaucoma / Confirmed Chronic anticoagulation / 944711390 / Confirmed Hx of pulmonary embolus / 010539118 / Confirmed High blood pressure / 90825656 / Confirmed History of obstructive sleep apnea / 26514087 / Confirmed Hyperlipidemia / 26111243 / Confirmed Multiple renal cysts / 316336282 / Confirmed Emphysema / 727203380 / Confirmed Apnea, sleep / 171222944 / Confirmed Stented coronary artery / 6331932451 / Confirmed Resolved: UTI - Urinary tract infection / 6432397697 Canceled: History of obstructive sleep apnea / 87166380 Histories No education data available. Social & [...] History: Active Cataract Glaucoma Coronary artery disease (7462258081) Stented coronary artery (8366813084) High blood pressure (00633995) Hyperlipidemia (46577366) COPD (62189305) GERD - Gastro-esophageal reflux disease (9181737697) Multiple renal cysts (109151854) Arthritis (4888505) Diabetes mellitus (184511139) Emphysema (207636605) Apnea, sleep (468337472) Hx of pulmonary embolus (968657364) Chronic anticoagulation (999650174) Atrial fibrillation with RVR (3539604491) Resolved UTI - Urinary tract infection (0473307285): Resolved. Family History: Cardiomyopathy Child Stroke Brother Heart attack Brother Sister Leukemia Child Cancer Father Mother Sister Coronary heart disease Child Procedure history: Cardiac Stent on 12/20/2018 at 77 Years. Comments: 03/17/2021 9:03 EVA LAWS RN HARVINDER to LAD Cardiac Stent in 2010 at 70 Years. Cardiac Stent on 01/30/2008 at 67 Years. Comments: 06/13/2020 8:52 EVA LAWS RN PCI w/ [place] stent to D1 Coronary artery bypass graft ([id number]) in 1992 at 52 Years. Appendectomy (386489811). back surgury. cataract surgury. Cholecystectomy (67276557). femur repair. Hip replacement (4667948801). Hysterectomy (455066225). uterine suspension. Physical Examination VS/Measurements Vitals Signs [...] (Current Encounter/Past 24 Hours) ProBNP 576 pg/mL ND 03/17/2021 04:45 Blood Gases (Current Encounter/Past 24 Hours) No Blood Gas Results Found (Past 24 Hours) Radiology Results (Last 48 hours) [id number] -- 03/16/2021 15:29 CR Hip Uni Comp [...] personally viewed, interpreted and dictated the examination. Rhianan read and agree with the above final [...] reviewed, interpreted, and dictated by Dr. Charlette Hrerera.Transcribed by Kitty Villarreal PA-C.I have personally viewed, [...] on filedocumented in this encounter Care Teams High School Hvac R Instructor Relationship Specialty Start Date End Date Jay Howell MD [address] [place] [phone] PCP - General Emergency Medicine 11/12/23 documented as of this encounter
--- OUTSIDE RECORDS SUMMARY | 2025-07-22 07:46 | XMS_ITS | Encounter Summary ---
Author Organization [employer] ([place], [place], [place], [place]) Address [address] [place] [address] Care Team Providers Care Steam Shovel Operating Engineer Name Role Phone Jay Howell MD Primary Care Provider [phone] Encounter Details Date Type Department Care Team (Late st Contact Info) Description 03/17/2021 Transcribed Document [facility] [place] [address] ProviderJessie MD [address] [place], [place] [address] Social History Tobacco Use Types Packs/Day Years [...] 03/17/2021 17:25 EDT Electronically signed by Sivan [facility] Conversion Filament Cutter Cerner at 02/04/2023 2:18 PM CDT documented in this encounter Plan of Treatment Not on file documented as of this encounter Visit Diagnoses Not on filedocumented in this encounter Care Teams Steam Shovel Operating Engineer Relationship Specialty Start Date End Date Jay Howell MD [address] [place] [phone] PCP - General Emergency Medicine 11/12/23 documented as of this encounter
--- OUTSIDE RECORDS SUMMARY | 2025-07-22 07:46 | XMS_ITS | Encounter Summary ---
Author Organization [employer] ([place], [place], [place], [place]) Address [address] [place] [address] Care Team Providers Care Communication Lecturer Name Role Phone Jay Howell MD Primary Care Provider [phone] Encounter Details Date Type Department Care Team (Late st Contact Info) Description 03/16/2021 Transcribed Document [facility] [place] [facility] [place] [address] ProviderJessie MD [address] [place], [place] [phone] Social History Tobacco Use Types Packs/Day Years [...] Ambulatory Legal Guardian : Spouse Support Person/Patient Screw Machine Setter : Yes Support Person/Pt Rep Name : Willard Contact Password : Marvin Support Person/Pt Rep Contact Information : [phone] Want Family/Rep/Phys Notified of Admit : No [...] Obtained From : Patient Primary Language : Palestinian Preferred Communication Mode : Verbal Communication Barrier : None Rv Detailer Needed : No VALERIA DOAN RN - [...] Level : 46 or > High Risk [place] Fall Interventions : Adequate lighting, Assistive devices [...] Source : Stated Height Entry Format : [place] Height, Feet : 5 ft(Converted to: 152 cm, 60 Inch) Height, Inches : 3 Inch(Converted to: 0 ft 3 Inch, 7.62 cm) Clinical Height : 160.02 cm Weight Source : Standing scale Weight Entry Format : [place] Clinical Dosing Weight : 71.82 kg Weight, Pounds : 158 lb Body Surface Area (BSA) : 1.75 m2 Body Mass Index : 28 kg/m2 (HI) [place] Body Weight : 52 kg VALERIA DOAN [...] VALERIA DOAN RN - 03/16/2021 18:52 EDT [place] Suicide Severity Rating Scale (C-SSRS) CSSRS Past [...] VALERIA DOAN RN - 03/16/2021 18:52 EDT documented in this encounter Plan of Treatment Not on file documented as of this encounter Visit Diagnoses Not on filedocumented in this encounter Care Teams Communication Lecturer Relationship Specialty Start Date End Date Jay Howell MD [address] [place] [phone] PCP - General Emergency Medicine 11/12/23 documented as of this encounter
--- OUTSIDE RECORDS SUMMARY | 2025-07-22 07:46 | XMS_ITS | Encounter Summary ---
Author Organization [employer] ([place], [place], [place], [place]) Address [address] [place] [address] Care Team Providers Care Journeyman Sheet Metal Worker Name Role Phone Jay Howell MD Primary Care Provider [phone] Encounter Details Date Type Department Care Team (Late st Contact Info) Description 03/16/2021 Transcribed Document [facility] [place] [address] [place] [address] ProviderJessie MD [address] [place] [address] [phone] Social History Tobacco Use Types Packs/Day Years [...] ALLERGIES: Macrobid and morphine. HOME MEDICATIONS: 1. [place] as needed. 2. Xanax as needed. 3. [...] Chart was reviewed. Time spent, 60 minutes. /[id number] Yasser Zohary, MD YZ/AQ / YGonzalo / MODL CC: Dr. Avtar Moeller Electronically signed by [facility], [facility] Conversion Director Cardiac Cerner at 02/04/2023 2:22 PM CDT documented in this encounter Plan of Treatment Not on file documented as of this encounter Visit Diagnoses Not on filedocumented in this encounter Care Teams Journeyman Sheet Metal Worker Relationship Specialty Start Date End Date Jay Howell MD [address] [place] [phone] PCP - General Emergency Medicine 11/12/23 documented as of this encounter
--- OUTSIDE RECORDS SUMMARY | 2025-07-22 07:46 | XMS_ITS | Encounter Summary ---
Author Organization [employer] ([place], [place], [place], [place]) Address [address] [place] [address] Care Team Providers Care Fixing Machine Operator Name Role Phone Jay Howell MD Primary Care Provider [phone] Encounter Details Date Type Department Care Team (Late st Contact Info) Description 03/17/2021 Transcribed Document [facility] [place] Family Medicine [facility] [place] [address] ProviderJessie MD [address] [place] [phone] Social History Tobacco Use Types Packs/Day Years [...] 03/17/2021 14:49 EDT Electronically signed by Sivan [facility] Conversion Take Out Waiter/Waitress Cerner at 02/04/2023 2:21 PM CDT documented in this encounter Plan of Treatment Not on file documented as of this encounter Visit Diagnoses Not on filedocumented in this encounter Care Teams Fixing Machine Operator Relationship Specialty Start Date End Date Jay Howell MD [address] [place] [phone] PCP - General Emergency Medicine 11/12/23 documented as of this encounter
--- OUTSIDE RECORDS SUMMARY | 2025-07-22 07:46 | XMS_ITS | Encounter Summary ---
Author Organization [employer] ([place], [place], [place], [place]) Address [address] [place] [address] Care Team Providers Care Paying Teller Name Role Phone Jay Howell MD Primary Care Provider [phone] Encounter Details Date Type Department Care Team (Late st Contact Info) Description 08/25/[address] [facility] [place] Family Medicine [address] [place] [address] ProviderJessie MD [address] [place] [address] Social History Tobacco Use Types Packs/Day Years Used Date Smoking Tobacco: Never Assessed Comments Unknown Sex and Gender Information Value Date Recorded Sex Assigned at Not on file Legal Sex Female 7:30 PM CDT Gender Identity Not on file Sexual Orientation Not on file documented as of this encounter Miscellaneous Notes * Cerner Conversion Note - Jessie ProviderMD - 08/25/2020 4:33 AM HARDWOOD FLOOR REFINISHER [place] Suicide Severity Rating Scale (C-SSRS) Entered On: 08/25/2020 5:10 EST Performed On: 08/25/2020 5:10 EST by Yajaira Magallon Rn [place] Suicide Severity Rating Scale (C-SSRS) CSSRS Past [...] on filedocumented in this encounter Care Teams Paying Teller Relationship Specialty Start Date End Date Jay Howell MD [address] [place] [phone] PCP - General Emergency Medicine 11/12/23 documented as of this encounter
--- OUTSIDE RECORDS SUMMARY | 2025-07-22 07:46 | XMS_ITS | Encounter Summary ---
Author Organization [employer] ([place], [place], [place], [place]) Address [address] [place] [address] Care Team Providers Care Osteopathic Neurologist Name Role Phone Jay Howell MD Primary Care Provider [phone] Encounter Details Date Type Department Care Team (Late st Contact Info) Description 08/25/2020 Transcribed Document [facility] [place] Family Medicine [address] [place] [address] ProviderJessie MD [address] [place] [address] Social History Tobacco Use Types Packs/Day Years Used Date Smoking Tobacco: Never Assessed Comments Unknown Sex and Gender Information Value Date Recorded Sex Assigned at Not on file Legal Sex Female 7:30 PM CDT Gender Identity Not on file Sexual Orientation Not on file documented as of this encounter Miscellaneous Notes * Cerner Conversion Note - Jessie Yuen MD - 08/25/2020 5:02 AM NURSES' REGISTRY DIRECTOR Pain Assessment Entered On: 08/25/2020 5:48 EST [...] on filedocumented in this encounter Care Teams Osteopathic Neurologist Relationship Specialty Start Date End Date Jay Howell MD [address] [place] [phone] PCP - General Emergency Medicine 11/12/23 documented as of this encounter
--- OUTSIDE RECORDS SUMMARY | 2025-07-22 07:46 | XMS_ITS | Encounter Summary ---
Author Organization [employer] ([place], [place], [place], [place]) Address [address] [place] [address] Care Team Providers Care Machine Setter And Repairer Name Role Phone Jay Howell MD Primary Care Provider [phone] Encounter Details Date Type Department Care Team (Late st Contact Info) Description 03/16/2021 Transcribed Document [facility] [place] [facility] [place] [address] ProviderJessie MD [address] [place] [phone] Social History Tobacco Use Types Packs/Day Years [...] of the form. Electronically signed by Sivan [facility] Conversion Technical Support Associate Cerner at 02/06/2023 12:48 PM CDT documented in this encounter Plan of Treatment Not on file documented as of this encounter Visit Diagnoses Not on filedocumented in this encounter Care Teams Machine Setter And Repairer Relationship Specialty Start Date End Date Jay Howell MD [address] [place] [phone] PCP - General Emergency Medicine 11/12/23 documented as of this encounter
--- OUTSIDE RECORDS SUMMARY | 2025-07-22 07:47 | XMS_ITS | Encounter Summary ---
Author Organization [employer] ([place], [place], [place], [place]) Address [address] [place] [address] Care Team Providers Care Newspaper Writer Name Role Phone Jay Howell MD Primary Care Provider [phone] Encounter Details Date Type Department Care Team (Late st Contact Info) Description 08/26/2020 Transcribed Document [facility] [place] [address] [place] [address] ProviderJessie MD [address] [place] [address] Social History Tobacco Use Types Packs/Day Years Used Date Smoking Tobacco: Never Assessed Comments Unknown Sex and Gender Information Value Date Recorded Sex Assigned at Not on file Legal Sex Female 7:30 PM CDT Gender Identity Not on file Sexual Orientation Not on file documented as of this encounter Miscellaneous Notes * Cerner Conversion Note - Jessie Yuen MD - 08/26/2020 8:24 AM TECHNICAL TESTING ENGINEER Patient: SKYLER MONTOYA Age: 79 years Sex: [...] Level 8.4 mg/dL 08/26/2020 04:23 MICRO: ACC: [id number] ORDER: Culture Wound and Stain DATE: 08/25/2020 05:00 SOURCE: Wound SITE: Leg Lower L Reports Pre 08/26/2020 06:23 No growth GS 08/25/2020 07:26 No organisms seen. Few White Blood Cells Rare epithelial cells == ACC: [id number] ORDER: Culture Blood DATE: 08/25/2020 05:01 SOURCE: Blood SITE: Reports Pre 08/26/2020 06:01 No growth at 1 day. Pre 08/25/2020 23:02 Culture less than 24 Hrs old == ACC: [id number] ORDER: Culture Blood DATE: 08/25/2020 05:01 SOURCE: Blood SITE: Reports Pre 08/26/2020 06:01 No growth at 1 day. Pre 08/25/2020 23:02 Culture less than 24 Hrs old == Radiology Results (Last 48 hours) [id number] -- 08/25/2020 05:53 CR Chest 1 Vw [...] above. Discussed with them. Electronically signed by [facility], [facility] Conversion Edger Hand Cerner at 02/04/2023 2:09 PM CDT documented in this encounter Plan of Treatment Not on file documented as of this encounter Visit Diagnoses Not on filedocumented in this encounter Care Teams Newspaper Writer Relationship Specialty Start Date End Date Jay Howell MD [address] [place] [phone] PCP - General Emergency Medicine 11/12/23 documented as of this encounter
--- OUTSIDE RECORDS SUMMARY | 2025-07-22 07:47 | XMS_ITS | Encounter Summary ---
Author Organization [employer] ([place], [place], [place], [place]) Address [address] [place] [address] Care Team Providers Care Creative Technologist Name Role Phone Jay Howell MD Primary Care Provider [phone] Encounter Details Date Type Department Care Team (Late st Contact Info) Description 08/25/2020 Transcribed Document [facility] [place] [address] [place] [address] ProviderJessie MD [address] [place] [address] Social History Tobacco Use Types Packs/Day Years Used Date Smoking Tobacco: Never Assessed Comments Unknown Sex and Gender Information Value Date Recorded Sex Assigned at Not on file Legal Sex Female 7:30 PM CDT Gender Identity Not on file Sexual Orientation Not on file documented as of this encounter Miscellaneous Notes * Cerner Conversion Note - Jessie Yuen MD - 08/25/2020 7:20 AM GAS METER READER Patient: SKYLER MONTOYA Age: 79 years Sex: [...] multiple stent placements. [facility] hematoma required [...] with her . She has a strong anglican treasure. She alex like to stay Full [...] on filedocumented in this encounter Care Teams Creative Technologist Relationship Specialty Start Date End Date Jay Howell MD [address] [place] [phone] PCP - General Emergency Medicine 11/12/23 documented as of this encounter
--- OUTSIDE RECORDS SUMMARY | 2025-07-22 07:47 | XMS_ITS | Encounter Summary ---
Author Organization [employer] ([place], [place], [place], [place]) Address [address] [place] [address] Care Team Providers Care Jewel Inspector Name Role Phone Jay Howell MD Primary Care Provider [phone] Encounter Details Date Type Department Care Team (Late st Contact Info) Description 03/18/2021 Transcribed Document [facility] [place] Family Medicine [facility] [place] [address] ProviderJessie MD [address] [place] [phone] Social History Tobacco Use Types Packs/Day Years [...] of the form. Electronically signed by Sivan, [facility] Conversion Truck Body Builder Apprentice Cerner at 02/04/2023 2:20 PM CDT documented in this encounter Plan of Treatment Not on file documented as of this encounter Visit Diagnoses Not on filedocumented in this encounter Care Teams Jewel Inspector Relationship Specialty Start Date End Date Jay Howell MD [address] [place] [phone] PCP - General Emergency Medicine 11/12/23 documented as of this encounter
--- OUTSIDE RECORDS SUMMARY | 2025-07-22 07:47 | XMS_ITS | Encounter Summary ---
Author Organization [employer] ([place], [place], [place], [place]) Address [address] [place] [address] Care Team Providers Care Double Cutter Name Role Phone Jay Howell MD Primary Care Provider [phone] Encounter Details Date Type Department Care Team (Late st Contact Info) Description 03/18/2021 Transcribed Document [facility] [place] Family [place] [address] [place] [address] ProviderJessie MD [address] [place] [address] [phone] Social History Tobacco Use Types Packs/Day Years [...] 03/18/2021 15:01 EDT by Krystina Giang V, Tip Puncher Restaurant Kitchen Manager Care Management Progress Note Discharge Arrangements : [...] Multidisciplinary Rounds? : Yes Krystina Giang V Tip Puncher [facility] [place] - 03/18/2021 15:01 EDT Narrative Progress Note [...] to follow dc plan Krystina Giang V Tip Puncher [facility] [place] - 03/18/2021 15:01 EDT Electronically signed by Sivan [facility] Conversion Gas Prover Cerner at 02/04/2023 1:55 PM CDT documented in this encounter Plan of Treatment Not on file documented as of this encounter Visit Diagnoses Not on filedocumented in this encounter Care Teams Double Cutter Relationship Specialty Start Date End Date Jay Howell MD [address] [place] [phone] PCP - General Emergency Medicine 11/12/23 documented as of this encounter
--- OUTSIDE RECORDS SUMMARY | 2025-07-22 07:47 | XMS_ITS | Encounter Summary ---
Author Organization [employer] ([place], [place], [place], [place]) Address [address] [place] [address] Care Team Providers Care Logistics Support Name Role Phone Jay Howell MD Primary Care Provider [phone] Encounter Details Date Type Department Care Team (Late st Contact Info) Description 08/26/2020 Transcribed Document [facility] [place] [address] [place] [address] ProviderJessie MD [address] [place], [place] 8[address]131 Social History Tobacco Use Types Packs/Day Years Used Date Smoking Tobacco: Never Assessed Comments Unknown Sex and Gender Information Value Date Recorded Sex Assigned at Not on file Legal Sex Female 7:30 PM CDT Gender Identity Not on file Sexual Orientation Not on file documented as of this encounter Miscellaneous Notes * Cerner Conversion Note - Historical ProviderMD - 08/26/2020 2:41 PM CARRIAGE FEEDER Event Note Entered On: 08/26/2020 14:42 EST [...] - 08/26/2020 18:03 EST Electronically signed by [facility], [facility] Conversion Human Resources Communications Manager Cerner at 02/04/2023 2:15 PM CDT documented in this encounter Plan of Treatment Not on file documented as of this encounter Visit Diagnoses Not on filedocumented in this encounter Care Teams Logistics Support Relationship Specialty Start Date End Date Jay Howell MD [address] [place] [phone] PCP - General Emergency Medicine 11/12/23 documented as of this encounter
--- OUTSIDE RECORDS SUMMARY | 2025-07-22 07:47 | XMS_ITS | Encounter Summary ---
Author Organization [employer] ([place], [place], [place], [place]) Address [address] [place] [address] Care Team Providers Care Sheep Herder Name Role Phone Jay Howell MD Primary Care Provider [phone] Encounter Details Date Type Department Care Team (Late st Contact Info) Description 03/19/2021 Transcribed Document [facility] [place] Family Medicine [address] [place] [address] ProviderJessie MD [address] [place] [address] Social History Tobacco Use Types Packs/Day Years [...] KENDRA ROJAS, PT - 03/19/2021 17:49 EDT Assisted Goals Mobility/Bed Mobility LTG PT Grid Goal [...] on filedocumented in this encounter Care Teams Sheep Herder Relationship Specialty Start Date End Date Jay Howell MD [address] [place] [phone] PCP - General Emergency Medicine 11/12/23 documented as of this encounter
--- OUTSIDE RECORDS SUMMARY | 2025-07-22 07:47 | XMS_ITS | Encounter Summary ---
Author Organization [employer] ([place], [place], [place], [place]) Address [address] [place] [address] Care Team Providers Care Phytopathology Teacher Name Role Phone Jay Howell MD Primary Care Provider [phone] Encounter Details Date Type Department Care Team (Late st Contact Info) Description 03/17/2021 Transcribed Document [facility] [place] Family Medicine [facility] [address] ProviderJessie MD [address] [place] [address] Social History Tobacco Use Types Packs/Day Years [...] on filedocumented in this encounter Care Teams Phytopathology Teacher Relationship Specialty Start Date End Date Jay Howell MD [address] [place] [phone] PCP - General Emergency Medicine 11/12/23 documented as of this encounter
--- OUTSIDE RECORDS SUMMARY | 2025-07-22 07:47 | XMS_ITS | Encounter Summary ---
Author Organization [employer] ([place], [place], [place], [place]) Address [address] [place] [address] Care Team Providers Care Country Printer Name Role Phone Jay Howell MD Primary Care Provider [phone] Encounter Details Date Type Department Care Team (Late st Contact Info) Description 08/25/2020 Transcribed Document [facility] [place] [address] [place] [address] ProviderJessie MD [address] [place] [address] Social History Tobacco Use Types Packs/Day Years Used Date Smoking Tobacco: Never Assessed Comments Unknown Sex and Gender Information Value Date Recorded Sex Assigned at Not on file Legal Sex Female 7:30 PM CDT Gender Identity Not on file Sexual Orientation Not on file documented as of this encounter Miscellaneous Notes * Cerner Conversion Note - Jessie Yuen MD - 08/25/2020 7:28 AM COUNTER CLERK [employer] Inpatient Documentation Entered On: 08/25/2020 15:46 [...] Sujata Mckee Rn-Enterostomal - 08/25/2020 15:46 EST Electronically signed by Sivan, [facility] Conversion Tool Maker Cerner at 02/04/2023 2:08 PM CDT documented in this encounter Plan of Treatment Not on file documented as of this encounter Visit Diagnoses Not on filedocumented in this encounter Care Teams Country Printer Relationship Specialty Start Date End Date Jay Howell MD [address] [place] [place] [phone] PCP - General Emergency Medicine 11/12/23 documented as of this encounter
--- OUTSIDE RECORDS SUMMARY | 2025-07-22 07:47 | XMS_ITS | Encounter Summary ---
Author Organization [employer] ([place], [place], [place], [place]) Address [address] [place] [address] Care Team Providers Care Subeditor Name Role Phone Jay Howell MD Primary Care Provider [phone] Encounter Details Date Type Department Care Team (Late st Contact Info) Description 08/26/[address] [facility] [place] Family Medicine [address] [place] [address] ProviderJessie MD [address] [place] [address] Social History Tobacco Use Types Packs/Day Years Used Date Smoking Tobacco: Never Assessed Comments Unknown Sex and Gender Information Value Date Recorded Sex Assigned at Not on file Legal Sex Female 7:30 PM CDT Gender Identity Not on file Sexual Orientation Not on file documented as of this encounter Miscellaneous Notes * Cerner Conversion Note - Historical ProviderMD - 08/26/2020 2:49 PM [place] GUIDE Patient: SKYLER MONTOYA Age: 79 years Sex: [...] on filedocumented in this encounter Care Teams Subeditor Relationship Specialty Start Date End Date Jay Howell MD [address] [place] [phone] PCP - General Emergency Medicine 11/12/23 documented as of this encounter
--- OUTSIDE RECORDS SUMMARY | 2025-07-22 07:47 | XMS_ITS | Encounter Summary ---
Author Organization [email or web address] ([place], [place], [place], [place]) Address [address] [place] [address] Care Team Providers Care Broadcast Meteorologist Name Role Phone Jay Howell MD Primary Care Provider [phone] Encounter Details Date Type Department Care Team (Late st Contact Info) Description 08/26/2020 Transcribed Document [facility] [place] [address] [place] [address] ProviderJessie MD [address] [place] [address] Social History Tobacco Use Types Packs/Day Years Used Date Smoking Tobacco: Never Assessed Comments Unknown Sex and Gender Information Value Date Recorded Sex Assigned at Not on file Legal Sex Female 7:30 PM CDT Gender Identity Not on file Sexual Orientation Not on file documented as of this encounter Miscellaneous Notes * Cerner Conversion Note - Historical ProviderMD - 08/26/2020 2:16 PM PSYCHOLOGY INTERN Initial Discharge Planning Entered On: 08/26/2020 14:19 EST Performed On: 08/26/2020 14:16 EST by KAVITA PELLETIER RN-Tool And Die Repair Initial Assessment I Previously Documented Living Environment [...] Listed? : Yes Medical Durable Power of Brainer Name : No KAVITA PELLETIER RN-Tool And Die Repair - 08/26/2020 14:16 EST Initial Assessment II Sensory and Motor Deficits : Weakness Current Home Treatments and Equipment : CPAP, Walker KAVITA PELLETIER RN-Tool And Die Repair - 08/26/2020 14:16 EST Narrative Note Narrative [...] upon POC. CM will follow. KAVITA PELLETIER RN-Tool And Die Repair - 08/26/2020 14:16 EST Electronically signed by Gayle Finnegan Conversion Highway Construction Inspector Cerner at 02/04/2023 2:16 PM CDT documented in this encounter Plan of Treatment Not on file documented as of this encounter Visit Diagnoses Not on filedocumented in this encounter Care Teams Broadcast Meteorologist Relationship Specialty Start Date End Date Jay Howell MD [address] [place] [phone] PCP - General Emergency Medicine 11/12/23 documented as of this encounter
--- OUTSIDE RECORDS SUMMARY | 2025-07-22 07:47 | XMS_ITS | Encounter Summary ---
Author Organization [employer] ([place], [place], [place], [place]) Address [address] [place] [address] Care Team Providers Care Caustic Liquor Maker Name Role Phone Jay Howell MD Primary Care Provider [phone] Encounter Details Date Type Department Care Team (Late st Contact Info) Description 08/26/2020 Transcribed Document [facility] [place] Medicine [address] [place] [address] ProviderJessie MD [address] [place], [place] [address] Social History Tobacco Use Types Packs/Day Years Used Date Smoking Tobacco: Never Assessed Comments Unknown Sex and Gender Information Value Date Recorded Sex Assigned at Not on file Legal Sex Female 7:30 PM CDT Gender Identity Not on file Sexual Orientation Not on file documented as of this encounter Miscellaneous Notes * Cerner Conversion Note - Historical ProviderMD - 08/26/2020 2:00 AM NOVELTY CHAIN MAKER Insulation Board Back Tender Details Entered On: 08/26/2020 2:00 EST Performed On: 08/26/2020 2:00 EST by Kervin Kulkarni RN Order Details Isolation Precautions Order Detail : Standard Precautions Order Detail : N/A IV Order Detail : 1 Oxygen Order Detail : 0 Lift/Transfer : Independent Room Service : Not Appropriate Patient Needs Meds Crushed/Liquid : No Kervin Kulkarni RN - 08/26/2020 1:56 EST Electronically signed by Sivan [facility] Conversion Manager Front Cerner at 02/04/2023 2:10 PM CDT documented in this encounter Plan of Treatment Not on file documented as of this encounter Visit Diagnoses Not on filedocumented in this encounter Care Teams Caustic Liquor Maker Relationship Specialty Start Date End Date Jay Howell MD [address] [place] [phone] PCP - General Emergency Medicine 11/12/23 documented as of this encounter
--- OUTSIDE RECORDS SUMMARY | 2025-07-22 07:47 | XMS_ITS | Encounter Summary ---
Author Organization [employer] ([place], [place], [place], [place]) Address [address] [place] [address] Care Team Providers Care C Software Engineer Name Role Phone Jay Howell MD Primary Care Provider [phone] Encounter Details Date Type Department Care Team (Late st Contact Info) Description 03/18/2021 Transcribed Document [facility] [address] [place], [place] [id number] Jorje Bení[place] [address] [place] [address] [address] [place] [address] Social History Tobacco Use Types Packs/Day Years [...] None Author: JORJE BENÍTEZ MD-CAR Basic Information Barrel Tester And Drainer: Dr. Adry Dumas Subjective NAD Health Status [...] Vitamins oral tablet 1 Tab, Oral, Daily [place] 7.5 mg-325 mg oral tablet 1 Tab, [...] 03/17/2021 04:45 Radiology Results (Last 48 hours) [id number] -- 03/17/2021 13:59 CR Hip Uni Comp [...] filedocumented in this encounter Care Teams C Software Engineer Relationship Specialty Start Date End Date Jay Howell MD [address] [place] [phone] PCP - General Emergency Medicine 11/12/23 documented as of this encounter
--- OUTSIDE RECORDS SUMMARY | 2025-07-22 07:47 | XMS_ITS | Encounter Summary ---
Author Organization [employer] ([place], [place], [place], [place]) Address [address] [place] [address] Care Team Providers Care [employer] Executive Director Name Role Phone Jay Howell MD Primary Care Provider [phone] Encounter Details Date Type Department Care Team (Late st Contact Info) Description 03/18/2021 Transcribed Document [facility] [place] [facility] [place] [address] ProviderJessie MD [address] [place] [id number] Social History Tobacco Use Types Packs/Day Years Used Date Smoking Tobacco: Never Assessed Comments Unknown Sex and Gender Information Value Date Recorded Sex Assigned at Not on file Legal Sex Female 7:30 PM CDT Gender Identity Not on file Sexual Orientation Not on file documented as of this encounter Miscellaneous Notes * Cerner Conversion Note - Jessie ProviderMD - 03/18/2021 2:00 AM CDT Coat Tailor Details Entered On: 03/18/2021 7:00 EDT Performed [...] 03/18/2021 7:00 EDT Electronically signed by Sivan [facility] Conversion Occupational Therapist Assistants Cerner at 02/04/2023 2:06 PM CDT documented in this encounter Plan of Treatment Not on file documented as of this encounter Visit Diagnoses Not on filedocumented in this encounter Care Teams [employer] Executive Director Relationship Specialty Start Date End Date Jay Howell MD [address] [place] [phone] PCP - General Emergency Medicine 11/12/23 documented as of this encounter
--- OUTSIDE RECORDS SUMMARY | 2025-07-22 07:47 | XMS_ITS | Encounter Summary ---
Author Organization [employer] ([place], [place], [place], [place]) Address [address] [place] [address] Care Team Providers Care Box Finisher Name Role Phone Jay Howell MD Primary Care Provider [phone] Encounter Details Date Type Department Care Team (Late st Contact Info) Description 08/26/2020 Transcribed Document [facility] [place] [address] [place] [address] ProviderJessie MD [address] [place], [place] [address] Social History Tobacco Use Types Packs/Day Years Used Date Smoking Tobacco: Never Assessed Comments Unknown Sex and Gender Information Value Date Recorded Sex Assigned at Not on file Legal Sex Female 7:30 PM CDT Gender Identity Not on file Sexual Orientation Not on file documented as of this encounter Miscellaneous Notes * Cerner Conversion Note - Historical ProviderMD - 08/26/2020 1:15 PM RETAIL STOCK CLERK [facility] Main OR IntraOp Summary Primary Physician: KAELA HEBERT MD Finalized Date/Time: 08/28/20 09:26:05 Pt. Name: SKYLER MONTOYAO.B./Sex: 1940 Female Med Rec #: [id number] Physician: BETH DAVALOS MD-INT Financial #: [id number] Pt. Type: I Room/Bed: [facility]/ Admit/Disch: 08/25/20 05:53:00 - Institution: [facility] IntraOp Case Attendance Entry 1 Entry 2 Entry 3 Case Attendee KAELA HEBERT MD GRAFF, WAYNE B, MD-GABY INIGUEZ CRNA Role Performed Surgeon/Proceduralist, Anesthesiologist of DELIVERY ENGINEER/Nurse Stamp Mounter First Record Time In 08/26/20 13:00:00 08/26/20 [...] Medrano, Saray Linton ST Role Performed Student Multicultural Services Librarian, First Scrub, First Time In 08/26/20 13:00:00 [...] OTHER, ATTENDEE #3 Role Performed Scrub, First Mail Technician Mail Technician Time In 08/26/20 13:00:00 08/26/20 13:00:00 08/26/20 [...] 14:32:23 Entry 10 Case Attendee Jos Ledezma, Lump Inspector Role Performed Scrub, First Time In 08/26/20 13:50:00 Time Out 08/26/20 14:23:00 Procedure Wound Debridement Lower Extremity(Left), Aortogram Abdominal with Runoff(Left), Angioplasty Percutaneous Transluminal(Left) Other Attendee Superficial Wound Closed By: Last Modified By: Radha Medrano RN 08/26/20 14:32:23 [facility] IntraOp Case Attendance Audit 08/26/20 14:32:23 Dust Brush Assembler: AMAN Modifier: AMAN 1 <+> Time Out [...] with Runoff(Left), Angioplasty Percutaneous Transluminal(Left) 08/26/20 13:55:12 Dust Brush Assembler: EANAPIER Modifier: EANAPIER 6 <+> Time Out 6 <*> Procedure Wound Debridement Lower Extremity(Left), Aortogram Abdominal with Runoff(Left), Angioplasty Percutaneous Transluminal(Left) 7 <+> Time Out 7 <*> Procedure Wound Debridement Lower Extremity(Left), Aortogram Abdominal with Runoff(Left), Angioplasty Percutaneous Transluminal(Left) <+> 10 Case Attendee <+> 10 Role Performed <+> 10 Time In <+> 10 Procedure 08/26/20 13:49:11 Dust Brush Assembler: EANAPIER Modifier: EANAPIER 1 <*> Procedure Wound [...] Extremity(Left), Aortogram Abdominal with Runoff(Left) 08/26/20 13:47:56 Dust Brush Assembler: EANAPIER Modifier: EANAPIER 1 <*> Procedure Wound [...] Procedure Wound Debridement Lower Extremity(Left) 08/26/20 13:38:05 Dust Brush Assembler: EANAPIER Modifier: EANAPIER <+> 1 Time In [...] 9 <*> Procedure Wound Debridement Lower Extremity(Left) [facility] IntraOp Case Times Entry 1 Patient In Room Time 08/26/20 13:00:00 Out Room Time 08/26/20 14:23:00 Anesthesia Start Time 08/26/20 13:00:00 Stop Time 08/26/20 14:23:00 Surgery / Procedure Times Start Time 08/26/20 13:15:00 Stop Time 08/26/20 14:10:00 Last Modified By: Radha Medrano RN 08/26/20 14:22:56 [facility] IntraOp Case Times Audit 08/26/20 14:22:56 Dust Brush Assembler: EANAPIER Modifier: EANAPIER <+> 1 Out Room Time <+> 1 Stop Time 08/26/20 14:14:55 Dust Brush Assembler: EANAPIER Modifier: EANAPIER <+> 1 Stop Time [facility] IntraOp Cautery Entry 1 ESU Identification Cautery Type Monopolar ESU ID Number [id number] ID Type Hospital Number Cautery Settings Cut Setting 30 Coag Setting 30 ESU Grounding Pad Ground Pad Type Adult Grounding Pad Site Right Upper Abdomen Grounding Pad Radha Medrano RN Applied By Grounding Pad Site Warm, dry and intact Skin Condition Before Cautery Grounding Pad Site Unchanged Skin Condition After Cautery Last Modified By: Radha Medrano RN 08/26/20 13:46:51 [facility] IntraOp Communication Entry 1 Communication To Other Comment [facility] REPORT Communication By Radha Medrano RN Date and Time 08/26/20 14:17:00 Last Modified By: Radha Medrano RN 08/26/20 14:16:35 [facility] IntraOp Counts Verification Entry 1 Procedure Wound Debridement Lower Extremity(Left), Aortogram Abdominal with Runoff(Left), Angioplasty Percutaneous Transluminal(Left) Count Info Count Type Sponge, Sharps, Miscellaneous Counts Verification Baseline/pre-procedure Sequence Count Results Not Applicable Counts Performed By Count Performed By LUNA RIGGINS (Scrub) Count Performed By Radha Medrano RN (RN) Last Modified By: Radha Medrano RN 08/26/20 13:49:13 [facility] IntraOp Counts Verification Audit 08/26/20 13:49:13 Dust Brush Assembler: EANAPIER Modifier: EANAPIER 1 <*> Procedure Wound Debridement Lower Extremity(Left), Aortogram Abdominal with Runoff(Left) 08/26/20 13:47:59 Dust Brush Assembler: EANAPIER Modifier: EANAPIER 1 <*> Procedure Wound Debridement Lower Extremity(Left) [facility] IntraOp Counts Final Entry 1 Procedure Wound Debridement Lower Extremity(Left), Aortogram Abdominal with Runoff(Left), Angioplasty Percutaneous Transluminal(Left) Final Count Info Count Type Sponge, Sharps, Miscellaneous Counts Verification Skin Closure/end of Sequence procedure Count Results Correct, surgeon notified Counts Performed By Count Performed By Jos Ledezma Surgical (Scrub) Train Dispatcher Count Performed By Radha Medrano RN (RN) Last Modified By: Radha Medrano RN 08/26/20 14:24:36 [facility] IntraOp Counts Final Audit 08/26/20 14:24:36 Dust Brush Assembler: LOVELYPIOMAYRA Modifier: EANAPIER 1 <*> Procedure Wound Debridement Lower Extremity(Left), Aortogram Abdominal with Runoff(Left), Angioplasty Percutaneous Transluminal(Left) 1 <+> Count Results 1 <+> Count Performed By (Scrub) 1 <+> Count Performed By (RN) 08/26/20 13:49:14 Dust Brush Assembler: LOVELYPIOMAYRA Modifier: EANAPIER 1 <*> Procedure Wound Debridement Lower Extremity(Left), Aortogram Abdominal with Runoff(Left) 08/26/20 13:48:01 Dust Brush Assembler: LOVELYPIOMAYRA Modifier: EANAPIER 1 <*> Procedure Wound Debridement Lower Extremity(Left) [facility] IntraOp Cultures and Spec Summary Entry 1 Cultrures and Specimens Specimen Ordered: Yes Test(s) Culture(s)/Microbiology Requested/Final Disposition Last Modified By: Radha Medrano RN 08/26/20 13:56:41 General Comments: LEFT ANTERIOR LEG WOUND. [facility] IntraOp Departure from OR Entry 1 Integumentary Assessment Integumentary WDL Assessment WDL Transfer/Handoff Transfer to PACU Phase II Handoff Method Phone call Post-op Transport Stretcher/Gurney Via Patient Transport Radha Medrano RN Accompanied by Transfer/Handoff PT TRANSPORTED TO [facility], PT STABLE Last Modified By: Radha Medrano RN 08/26/20 14:24:24 General Comments: [id number] LALA RNTRIMMER HELPER [facility] IntraOp Dressing and Packing Entry 1 Type Dressing Wound Dressing Item Skin Closure Glue Applied By KAELA HEBERT MD Last Modified By: Radha Medrano RN 08/26/20 13:45:13 [facility] IntraOp Fire Risk Assessment Entry 1 Fire [...] Modified By: Radha Medrano RN 08/26/20 13:40:08 [facility] IntraOp General Case Md Allergy Immunology 1 Case Information OR OR 20 [facility] Case Level 1 Room Verified Yes Wound Class II - Clean-Contaminated Specialty SN Endovascular Anesthesia Type MAC ASA Class 4 Diagnosis Preop Diagnosis LEFT LEG WOUND Postop Same As Preop No Postop Diagnosis SEE MD NOTE Last Modified By: Radha Medrano RN 08/26/20 13:44:53 [facility] IntraOp Implant Log Entry 1 Type Implant (Synthetic) Implant Log Implant DEVICE CLSR ANGIO-SEAL Identification [facility] [id number] Description Implant Quantity 1 Implant Site RIGHT Implant [id number] Identification Lot Number Implant [facility] Med:Cardiac Surg Identification Cit[employer] Picker Name: Implant [id number] Identification Catalog Number Implant Has an Yes Expiration Date Implant Expiration 06/16/21 Date Tissue Implant Last Modified By: Radha Medrano RN 08/26/20 14:23:44 [facility] IntraOp Intraoperative Assessment Entry 1 Handoff Method [...] Modified By: Radha Medrano RN 08/26/20 13:44:22 [facility] IntraOp Intraoperative Equipment Entry 1 Type Monitoring Equipment Intraop Monitoring Electrocardiogram Three lead placement (ECG) Electrode Placement Blood Pressure Non-Invasive BP Device Source Blood Pressure Arm, right upper Location Pulse Oximeter Hand, left Probe Site Antiembolic Devices Scopes Photo/Video Documentation Last Modified By: Radha Medrano RN 08/26/20 13:43:20 [facility] IntraOp Medication Admin Entry 1 Entry 2 Entry 3 Medication/Irrigant PRM-LB VISIPAQUE 320MG lidocaine 1% 10mg/1ml COMBO heparin in NS [id number]-[id number] 50ml vial - [id number] flush 2000units/1000ml --[id number] Combo Med List Time Administered Route of Administration Dose Dose 320 2000 Unit of Measure mg units Volume Administered By KAELA HEBERT MD MENES, KEITH, MD MENES, KEITH, MD Procedure Irrigation Irrigant Volume In Irrigant Volume Out Last Modified By: Radha Medrano RN Napier, Elizabeth A, RN Napier, Elizabeth A, RN 08/26/20 13:42:30 08/26/20 13:42:30 08/26/20 13:42:30 [facility] IntraOp Patient Positioning Entry 1 Procedure Wound [...] Modified By: Radha Medrano RN 08/26/20 13:49:13 [facility] IntraOp Patient Positioning Audit 08/26/20 13:49:13 Dust Brush Assembler: EANAPIER Modifier: EANAPIER 1 <*> Procedure Wound Debridement Lower Extremity(Left), Aortogram Abdominal with Runoff(Left) 08/26/20 13:48:00 Dust Brush Assembler: EANAPIER Modifier: EANAPIER 1 <*> Procedure Wound Debridement Lower Extremity(Left) [facility] IntraOp Sign In Entry 1 Patient, Site, [...] Modified By: Radha Medrano RN 08/26/20 13:31:46 [facility] IntraOp Sign Out Entry 1 RN Confirmation [...] Modified By: Radha Medrano RN 08/26/20 14:32:44 [facility] IntraOp Sign Out Audit 08/26/20 14:32:44 Dust Brush Assembler: AMAN Modifier: AMAN 1 <*> Specimen Labeled Correctly N/A 1 <+> RN Sign Out Signature 1 <+> RN Sign Out Signature Date/Time [facility] IntraOp Skin Prep Entry 1 Procedure Wound Debridement Lower Extremity(Left), Aortogram Abdominal with Runoff(Left), Angioplasty Percutaneous Transluminal(Left) Prescribed N/A Pre-Surgical Prep Completed Prep Area BILATERAL GROINS, LEFT LOWER LEG Intraop Prep Prep Agents Chloraprep Prep by Radha Medrano RN Hair Removal Methods No hair removal performed Last Modified By: Radha Medrano RN 08/26/20 13:49:14 [facility] IntraOp Skin Prep Audit 08/26/20 13:49:14 Dust Brush Assembler: AMAN Modifier: REGINANAPIER 1 <*> Procedure Wound Debridement Lower Extremity(Left), Aortogram Abdominal with Runoff(Left) 08/26/20 13:48:00 Dust Brush Assembler: AMAN Modifier: LOVELYPIER 1 <*> Procedure Wound Debridement Lower Extremity(Left) [facility] IntraOp Surgical Procedures Entry 1 Entry 2 [...] RN 08/26/20 14:22:50 08/26/20 14:22:50 08/26/20 14:22:50 [facility] IntraOp Surgical Procedures Audit 08/26/20 14:22:50 Dust Brush Assembler: AMAN Modifier: REGINANAPIER 1 <*> Procedure Wound Debridement Lower Extremity 1 <+> Stop <+> 2 Stop <+> 3 Stop 08/26/20 13:56:00 Dust Brush Assembler: LOVELYPIOMAYRA Modifier: EANAPIER 1 <*> Procedure Wound Debridement Lower Extremity 1 <*> Additional Procedure Description (LT LOWER EXTREMTIY WOUND DEBRIDEMENT WITH WOUND VAC) 08/26/20 13:48:53 Dust Brush Assembler: EANAPIER Modifier: EANAPIER <+> 3 Procedure <+> 3 Primary Procedure <+> 3 Modifiers <+> 3 Primary Surgeon <+> 3 Specialty <+> 3 Start <+> 3 Wound Class <+> 3 Anesthesia Type 08/26/20 13:47:52 Dust Brush Assembler: EANAPIER Modifier: EANAPIER <+> 2 Procedure <+> 2 Primary Procedure <+> 2 Modifiers <+> 2 Primary Surgeon <+> 2 Specialty <+> 2 Start <+> 2 Wound Class <+> 2 Anesthesia Type 08/26/20 13:43:42 Dust Brush Assembler: EANAPIER Modifier: EANAPIER 1 <*> Procedure Wound Debridement Lower Extremity 1 <+> Specialty 1 <*> Anesthesia Type General [facility] IntraOP Time Out Entry 1 Procedure to [...] Modified By: Radha Medrano RN 08/26/20 13:49:14 [facility] IntraOP Time Out Audit 08/26/20 13:49:14 Dust Brush Assembler: AMAN Modifier: EANAPIER 1 <*> Procedure to be Performed Wound Debridement Lower Extremity(Left), Aortogram Abdominal with Runoff(Left) 08/26/20 13:48:01 Dust Brush Assembler: REGINANAPIER Modifier: EANAPIER 1 <*> Procedure to be Performed Wound Debridement Lower Extremity(Left) [facility] IntraOp X-Ray and Images Entry 1 X-Ray/Imaging [...] WATTSDR Correct Billing Electronically signed by Sivan [facility] Conversion Optometric Tech Cerner at 02/04/2023 2:03 PM CDT documented in this encounter Plan of Treatment Not on file documented as of this encounter Visit Diagnoses Not on filedocumented in this encounter Care Teams Box Finisher Relationship Specialty Start Date End Date Jay Howell MD [address] [place] [phone] PCP - General Emergency Medicine 11/12/23 documented as of this encounter
--- OUTSIDE RECORDS SUMMARY | 2025-07-22 07:47 | XMS_ITS | Encounter Summary ---
Author Organization [employer] ([place], [place], [place], [place]) Address [address] [place] [address] Care Team Providers Care Aviation Safety Technician Name Role Phone Jay Howell MD Primary Care Provider [phone] Encounter Details Date Type Department Care Team (Late st Contact Info) Description 08/25/2020 Transcribed Document [facility] [place] [address] [place] [address] ProviderJessie MD [address] [place] [address] Social History Tobacco Use Types Packs/Day Years Used Date Smoking Tobacco: Never Assessed Comments Unknown Sex and Gender Information Value Date Recorded Sex Assigned at Not on file Legal Sex Female 7:30 PM CDT Gender Identity Not on file Sexual Orientation Not on file documented as of this encounter Miscellaneous Notes * Cerner Conversion Note - Historical ProviderMD - 08/25/2020 6:14 PM CORPORATE SPECIALIST Admission History, Adult Entered On: 08/25/2020 [...] Ambulatory Legal Guardian : Spouse Support Person/Patient Hydrotel Operator : Yes Support Person/Pt Rep Name : Willard Contact Password : Marvin Support Person/Pt Rep Contact Information : [phone] Want Family/Rep/Phys Notified of Admit : No [...] Obtained From : Patient Primary Language : Moldovan Preferred Communication Mode : Verbal Communication Barrier : None Silk Screen Etcher Needed : No ROMEO PADRON RN - [...] Level : 46 or > High Risk [place] Fall Interventions : Adequate lighting, Assistive devices [...] Source : Stated Height Entry Format : [place] Height, Feet : 5 ft(Converted to: 152 cm, 60 Inch) Height, Inches : 3 Inch(Converted to: 0 ft 3 Inch, 7.62 cm) Clinical Height : 160.02 cm Weight Source : Bed scale Weight Entry Format : [place] Clinical Dosing Weight : 69.09 kg Weight, Pounds : 152 lb Body Surface Area (BSA) : 1.72 m2 Body Mass Index : 27 kg/m2 (HI) Beverly Body Weight : 52 kg ROMEO PADRON [...] ROMEO PADRON RN - 08/25/2020 18:14 EST [place] Suicide Severity Rating Scale (C-SSRS) CSSRS Past [...] 08/25/2020 18:14 EST Electronically signed by Sivan [facility] Conversion Primer Waterproofing Machine Operator Cerner at 02/04/2023 2:14 PM CDT documented in this encounter Plan of Treatment Not on file documented as of this encounter Visit Diagnoses Not on filedocumented in this encounter Care Teams Aviation Safety Technician Relationship Specialty Start Date End Date Jay Howell MD [address] [place] [phone] PCP - General Emergency Medicine 11/12/23 documented as of this encounter
--- OUTSIDE RECORDS SUMMARY | 2025-07-22 07:47 | XMS_ITS | Encounter Summary ---
Author Organization [employer] ([place], [place], [place], [place]) Address [address] [place] [address] Care Team Providers Care Pressure Steamer Tender Name Role Phone Jay Howell MD Primary Care Provider [phone] Encounter Details Date Type Department Care Team (Late st Contact Info) Description 08/25/2020 Transcribed Document [facility] [place] Family Medicine [address] [place] [address] ProviderJessie MD [address] [place] [address] Social History Tobacco Use Types Packs/Day Years Used Date Smoking Tobacco: Never Assessed Comments Unknown Sex and Gender Information Value Date Recorded Sex Assigned at Not on file Legal Sex Female 7:30 PM CDT Gender Identity Not on file Sexual Orientation Not on file documented as of this encounter Miscellaneous Notes * Cerner Conversion Note - Historical ProviderMD - 08/25/2020 4:33 AM BAKERY DEMONSTRATOR Broset Violence Assessment Entered On: 08/25/2020 5:10 EST Performed On: 08/25/2020 5:10 EST by Yajaira Magallon Rn Broset Violence Assessment Broset Violence Checklist of Symptoms : None Broset Violence Symptoms Subtotal : 0 Broset Violence Symptoms Indicator : Low risk (0) Yajaira Magallon Rn - 08/25/2020 5:10 EST Electronically signed by Sivan [facility] Conversion Dietary Server Cerner at 02/04/2023 2:10 PM CDT documented in this encounter Plan of Treatment Not on file documented as of this encounter Visit Diagnoses Not on filedocumented in this encounter Care Teams Pressure Steamer Tender Relationship Specialty Start Date End Date Jay Howell MD [address] [place] [phone] PCP - General Emergency Medicine 11/12/23 documented as of this encounter
--- OUTSIDE RECORDS SUMMARY | 2025-07-22 07:47 | XMS_ITS | Encounter Summary ---
Author Organization [employer] ([place], [place], [place], [place]) Address [address] [place] [address] Care Team Providers Care Commercial Photographer Name Role Phone Jay Howell MD Primary Care Provider [phone] Encounter Details Date Type Department Care Team (Late st Contact Info) Description 03/17/2021 Transcribed Document [facility] Radiology 1 [place] [address] Samantha Guzman MD [facility] [place] [address] Social History Tobacco Use Types Packs/Day Years [...] Vitamins oral tablet, 1 Tab, Oral, Daily Bendena 7.5 mg-325 mg oral tablet, 1 Tab, [...] Lymph # 1.52 x10(3)/uL 03/16/2021 11:38 EDT Costilla % 5.1 % 03/16/2021 11:38 EDT Costilla # 0.50 K/uL 03/16/2021 11:38 EDT Eos [...] Appearance CLEAR2 03/16/2021 14:09 EDT Urine Specific Lyons 1.015 03/17/2021 04:10 EDT Urine Specific Lyons 1.014 03/16/2021 14:09 EDT Urine pH Dipstick [...] [1] History and Physical; MARIA ELENA DAVALOS [facility] 03/16/2021 17:39 EDT [2] CR Wrist Min 3 Vws RT; Roni Guerra, Director Of Research And Development 03/16/2021 12:13 EDT documented in this encounter Plan of Treatment Not on file documented as of this encounter Visit Diagnoses Not on filedocumented in this encounter Care Teams Commercial Photographer Relationship Specialty Start Date End Date Jay Howell MD [address] [place] [phone] PCP - General Emergency Medicine 11/12/23 documented as of this encounter
--- OUTSIDE RECORDS SUMMARY | 2025-07-22 07:47 | XMS_ITS | Encounter Summary ---
Author Organization [employer] ([place], [place], [place], [place]) Address [address] [place] [address] Care Team Providers Care Lab Support Service Tech Name Role Phone Jay Howell MD Primary Care Provider [phone] Encounter Details Date Type Department Care Team (Late st Contact Info) Description 03/17/2021 Transcribed Document [facility] [place] [address] ProviderJessie MD [address] [place] [phone] Social History Tobacco Use Types Packs/Day Years Used Date Smoking Tobacco: Never Assessed Comments Unknown Sex and Gender Information Value Date Recorded Sex Assigned at Not on file Legal Sex Female 7:30 PM CDT Gender Identity Not on file Sexual Orientation Not on file documented as of this encounter Miscellaneous Notes * Cerner Conversion Note - Historical ProviderMD - 03/17/2021 2:00 AM CDT Wildland Firefighter Details Entered On: 03/17/2021 3:32 EDT Performed [...] - 03/17/2021 3:32 EDT Electronically signed by [facility], [facility] Conversion Resident Hall Director Cerner at 02/04/2023 2:22 PM CDT documented in this encounter Plan of Treatment Not on file documented as of this encounter Visit Diagnoses Not on filedocumented in this encounter Care Teams Lab Support Service Tech Relationship Specialty Start Date End Date Jay Howell MD [address] [place] [phone] PCP - General Emergency Medicine 11/12/23 documented as of this encounter
--- OUTSIDE RECORDS SUMMARY | 2025-07-22 07:47 | XMS_ITS | Encounter Summary ---
Author Organization [employer] ([place], [place], [place], [place]) Address [address] [place] [address] Care Team Providers Care Packing And Stamping Machine Operator Name Role Phone Jay Howell MD Primary Care Provider [phone] Encounter Details Date Type Department Care Team (Late st Contact Info) Description 08/26/2020 Transcribed Document [facility] Family Medicine [address] [place] [address] ProviderJessie MD [address] [place] [address] Social History Tobacco Use Types Packs/Day Years Used Date Smoking Tobacco: Never Assessed Comments Unknown Sex and Gender Information Value Date Recorded Sex Assigned at Not on file Legal Sex Female 7:30 PM CDT Gender Identity Not on file Sexual Orientation Not on file documented as of this encounter Miscellaneous Notes * Cerner Conversion Note - Historical ProviderMD - 08/26/2020 12:15 PM GENERATOR REPAIRER Peripheral Nerve Block Entered On: 08/26/2020 12:27 [...] - 08/26/2020 12:25 EST Electronically signed by [facility], [facility] Conversion Aircraft Captain Cerner at 02/04/2023 2:08 PM CDT documented in this encounter Plan of Treatment Not on file documented as of this encounter Visit Diagnoses Not on filedocumented in this encounter Care Teams Packing And Stamping Machine Operator Relationship Specialty Start Date End Date Jay Howell MD [address] [place] [phone] PCP - General Emergency Medicine 11/12/23 documented as of this encounter
--- OUTSIDE RECORDS SUMMARY | 2025-07-22 07:47 | XMS_ITS | Encounter Summary ---
Author Organization [employer] ([place], [place], [place], [place]) Address [address] [place] [address] Care Team Providers Care Search Marketing Coordinator Name Role Phone Jay Howell MD Primary Care Provider [phone] Encounter Details Date Type Department Care Team (Late st Contact Info) Description 03/18/2021 Transcribed Document [facility] [place] [facility] [place] [address] ProviderJessie MD [address] [place] [phone] Social History Tobacco Use Types Packs/Day Years [...] 03/18/2021 17:56 EDT Electronically signed by Sivan [facility] Conversion Solar Photovoltaic Systems Engineer Cerner at 02/04/2023 2:21 PM CDT documented in this encounter Plan of Treatment Not on file documented as of this encounter Visit Diagnoses Not on filedocumented in this encounter Care Teams Search Marketing Coordinator Relationship Specialty Start Date End Date Jay Howell MD [address] [place] [phone] PCP - General Emergency Medicine 11/12/23 documented as of this encounter
--- OUTSIDE RECORDS SUMMARY | 2025-07-22 07:47 | XMS_ITS | Encounter Summary ---
Author Organization [employer] ([place], [place], [place], [place]) Address [address] [place] [address] Care Team Providers Care Saddle Stitcher Name Role Phone Jay Howell MD Primary Care Provider [phone] Encounter Details Date Type Department Care Team (Late st Contact Info) Description 03/17/2021 Transcribed Document [facility] Family Medicine [address] [place] [address] ProviderJessie MD [address] [place] [address] Social History Tobacco Use Types Packs/Day Years [...] On: 03/17/2021 9:[address] [facility] Phone Call for Consults Consult, Additional Information : notified by physician TASHI LIND, [facility] - 03/18/2021 8:31 EDT documented in this encounter Plan of Treatment Not on file documented as of this encounter Visit Diagnoses Not on filedocumented in this encounter Care Teams Saddle Stitcher Relationship Specialty Start Date End Date Jay Howell MD [address] [place] [phone] PCP - General Emergency Medicine 11/12/23 documented as of this encounter
--- OUTSIDE RECORDS SUMMARY | 2025-07-22 07:47 | XMS_ITS | Encounter Summary ---
Author Organization [employer] ([place], [place], [place], [place]) Address [address] [place] [address] Care Team Providers Care Application Assistant Name Role Phone Jay Howell MD Primary Care Provider [phone] Encounter Details Date Type Department Care Team (Late st Contact Info) Description 03/18/2021 Transcribed Document [facility] [place] [address] [place] [address] ProviderJessie MD [address] [place] [phone] Social History Tobacco Use Types Packs/Day Years [...] - 03/18/2021 10:54 AM CDT Patient: SKYLER MONTOYA Age: 80 [...] Sodium Chloride 0.9% intravenous solution 100 mL Electronically signed by Gayle Finnegan Conversion Certified Indoor Environmentalist Cerner at 02/04/2023 1:59 PM CDT documented in this encounter Plan of Treatment Not on file documented as of this encounter Visit Diagnoses Not on filedocumented in this encounter Care Teams Application Assistant Relationship Specialty Start Date End Date Jay Howell MD [address] [place] [phone] PCP - General Emergency Medicine 11/12/23 documented as of this encounter
--- OUTSIDE RECORDS SUMMARY | 2025-07-22 07:47 | XMS_ITS | Encounter Summary ---
Author Organization [employer] ([place], [place], [place], [place]) Address [address] [place] [address] Care Team Providers Care Cigarette Carton Sealer Name Role Phone Jay Howell MD Primary Care Provider [phone] Encounter Details Date Type Department Care Team (Late st Contact Info) Description 03/17/2021 Transcribed Document [facility] Family Medicine [facility] [place] [address] ProviderJessie MD [address] [place], [place] [address]171 Social History Tobacco Use Types Packs/Day Years [...] of the form. Electronically signed by Sivan, [facility] Conversion Fusing Machine Tender Cerner at 02/04/2023 2:16 PM CDT documented in this encounter Plan of Treatment Not on file documented as of this encounter Visit Diagnoses Not on filedocumented in this encounter Care Teams Cigarette Carton Sealer Relationship Specialty Start Date End Date Jay Howell MD [address] [place] [phone] PCP - General Emergency Medicine 11/12/23 documented as of this encounter
--- OUTSIDE RECORDS SUMMARY | 2025-07-22 07:47 | XMS_ITS | Encounter Summary ---
Author Organization [employer] ([place], [place], [place], [place]) Address [address] [place] [address] Care Team Providers Care Bed Operator Name Role Phone Jay Howell MD Primary Care Provider [phone] Encounter Details Date Type Department Care Team (Late st Contact Info) Description 08/26/2020 Transcribed Document [facility] [place] [address] [place] [address] ProviderJessie MD [address] [place], [place] [phone] Social History Tobacco Use Types Packs/Day Years Used Date Smoking Tobacco: Never Assessed Comments Unknown Sex and Gender Information Value Date Recorded Sex Assigned at Not on file Legal Sex Female 7:30 PM CDT Gender Identity Not on file Sexual Orientation Not on file documented as of this encounter Miscellaneous Notes * Cerner Conversion Note - Historical ProviderMD - 08/26/2020 11:38 AM KNOTTING MACHINE OPERATOR Event Note Entered On: 08/26/2020 11:38 EST Performed On: 08/26/2020 11:38 EST by CARLTON GUTIERREZ Event Note Event Date/Time : 08/26/2020 11:15 EST Event Location : [place] Event Details : Other: Description of Event : 1115: [facility] PT 25 INR 2.4 CARLTON GUTIERREZ - 08/26/2020 11:38 EST Electronically signed by Sivan [facility] Conversion Drafter Directional Survey Cerner at 02/04/2023 2:15 PM CDT documented in this encounter Plan of Treatment Not on file documented as of this encounter Visit Diagnoses Not on filedocumented in this encounter Care Teams Bed Operator Relationship Specialty Start Date End Date Jay Howell MD [address] [place] [phone] PCP - General Emergency Medicine 11/12/23 documented as of this encounter
--- OUTSIDE RECORDS SUMMARY | 2025-07-22 07:47 | XMS_ITS | Encounter Summary ---
Author Organization [employer] ([place], [place], [place], [place]) Address [address] [place] [address] Care Team Providers Care Metal Cnc Operator Name Role Phone Jay Howell MD Primary Care Provider [phone] Encounter Details Date Type Department Care Team (Late st Contact Info) Description 03/17/2021 Transcribed Document [facility] [place] [facility] [place] [address] ProviderJessie MD [address] [place], [place] [phone] Social History Tobacco Use Types Packs/Day Years [...] 03/17/2021 15:21 EDT Electronically signed by Sivan [facility] Conversion Screen Door Maker Cerner at 02/04/2023 2:16 PM CDT documented in this encounter Plan of Treatment Not on file documented as of this encounter Visit Diagnoses Not on filedocumented in this encounter Care Teams Metal Cnc Operator Relationship Specialty Start Date End Date Jay Howell MD [address] [place] [phone] PCP - General Emergency Medicine 11/12/23 documented as of this encounter
--- OUTSIDE RECORDS SUMMARY | 2025-07-22 07:47 | XMS_ITS | Encounter Summary ---
Author Organization [employer] ([place], [place], [place], [place]) Address [address] [place] [address] Care Team Providers Care Branch Manager Name Role Phone Jay Howell MD Primary Care Provider [phone] Encounter Details Date Type Department Care Team (Late st Contact Info) Description 08/25/2020 Transcribed Document [facility] [place] [address] [place] [address] ProviderJessie MD [address] [place] [address] Social History Tobacco Use Types Packs/Day Years Used Date Smoking Tobacco: Never Assessed Comments Unknown Sex and Gender Information Value Date Recorded Sex Assigned at Not on file Legal Sex Female 7:30 PM CDT Gender Identity Not on file Sexual Orientation Not on file documented as of this encounter Miscellaneous Notes * Cerner Conversion Note - Historical MD Alpa - 08/25/2020 6:23 AM CORPORATE WEBMASTER Patient: SKYLER MONTOYA Age: 79 years Sex: [...] multiple stent placements. The patient presented to [facility] ER after recent fall with [...] Application, Topical, TID, 22 Gram, 0 Refill(s) Campo 7.5 mg-325 mg oral tablet: 1 Tab, [...] Problem list: Medical Arthritis / SNOMED CT 3281202 / Confirmed Atrial fibrillation with RVR / SNOMED CT 1756292430 / Confirmed Cataract / Patient Care / Confirmed Chest pain / SNOMED CT 33106442 / Complaint of COPD / SNOMED CT 72839164 / Confirmed Coronary artery disease / SNOMED CT 0219059427 / Confirmed Diabetes mellitus / SNOMED CT 244609348 / Confirmed GERD - Gastro-esophageal reflux disease / SNOMED CT 4779631212 / Confirmed Glaucoma / Patient Care / Confirmed Chronic anticoagulation / SNOMED CT 403043779 / Confirmed Hx of pulmonary embolus / SNOMED CT 369243992 / Confirmed High blood pressure / SNOMED CT 77059330 / Confirmed History of obstructive sleep apnea / IMO 99978167 / Confirmed Hyperlipidemia / SNOMED CT 40499423 / Confirmed Multiple renal cysts / SNOMED CT 952033091 / Confirmed Emphysema / SNOMED CT 811133276 / Confirmed Apnea, sleep / SNOMED CT 025657589 / Confirmed Stented coronary artery / SNOMED CT 2996187023 / Confirmed UTI - Urinary tract infection / SNOMED CT 2535237997 / Confirmed, Active Problems (21) Apnea, sleep [...] History: Active Cataract Glaucoma Coronary artery disease (2185894023) Stented coronary artery (7816889785) High blood pressure (02156976) Hyperlipidemia (87849134) COPD (66384139) GERD - Gastro-esophageal reflux disease (4997069824) Multiple renal cysts (080578483) UTI - Urinary tract infection (9466792630) Arthritis (8018424) Diabetes mellitus (498297719) Emphysema (178841307) Apnea, sleep (955110523) Hx of pulmonary embolus (401918102) Chronic anticoagulation (205922073) Atrial fibrillation with RVR (6669461066) Family History: Cardiomyopathy Child Stroke Brother Heart attack Brother Sister Leukemia Child Cancer Father Mother Sister Coronary heart disease Child , Significant for hypertension Procedure history: Cardiac Stent in 2010 at 70 Years. Cardiac Stent on 01/30/2008 at 67 Years. Comments: 06/13/2020 8:52 THERESET - EVA WESLEY RN PCI w/ [place] stent to D1 Coronary artery bypass graft (291254327) in 1992 at 52 Years. femur repair. Appendectomy (962091461). uterine suspension. Hysterectomy (453509086). back surgury. Cholecystectomy (63216110). Hip replacement (1444790138). cataract surgury. Social History Social & Psychosocial [...] on filedocumented in this encounter Care Teams Branch Manager Relationship Specialty Start Date End Date Jay Howell MD [address] [place] [phone] PCP - General Emergency Medicine 11/12/23 documented as of this encounter
--- OUTSIDE RECORDS SUMMARY | 2025-07-22 07:47 | XMS_ITS | Encounter Summary ---
Author Organization [employer] ([place], [place], [place], [place]) Address [address] [place] [address] Care Team Providers Care Shipping And Receiving Material Handler Name Role Phone Jay Howell MD Primary Care Provider [phone] Encounter Details Date Type Department Care Team (Late st Contact Info) Description 03/17/2021 Transcribed Document [facility] [place] Family Medicine [address] [place] [address] ProviderJessie MD [address] [place] [address] Social History Tobacco Use Types Packs/Day Years [...] Insurance 1 Health Plan: MEDICARE Policy Number: [id number] Authorization Number: Insurance 2 Health Plan: AARP N Policy Number: [id number] Authorization Number: Insurance Primary Name : MEDICARE Policy Number: [id number] Authorized Service Begin Date-Primary : 03/16/2021 EDT Historical Authorization Comments-Primary : No Authorization Comments Found MARILYNN RAMÍREZ, RN-Utilization Review - 03/17/2021 12:48 EDT documented in this encounter Plan of Treatment Not on file documented as of this encounter Visit Diagnoses Not on filedocumented in this encounter Care Teams Shipping And Receiving Material Handler Relationship Specialty Start Date End Date Jay Howell MD [address] [place] [phone] PCP - General Emergency Medicine 11/12/23 documented as of this encounter
--- OUTSIDE RECORDS SUMMARY | 2025-07-22 07:47 | XMS_ITS | Encounter Summary ---
Author Organization [employer] ([place], [place], [place], [place]) Address [address] [place] [address] Care Team Providers Care Discovery Manager Name Role Phone Jay Howell MD Primary Care Provider [phone] Encounter Details Date Type Department Care Team (Late st Contact Info) Description 03/17/2021 Transcribed Document [facility] [place] [facility] [place] [address] ProviderJessie MD [address] [place] [address] Social History Tobacco Use Types Packs/Day Years [...] on filedocumented in this encounter Care Teams Discovery Manager Relationship Specialty Start Date End Date Jay Howell MD [address] [place] [phone] PCP - General Emergency Medicine 11/12/23 documented as of this encounter
--- OUTSIDE RECORDS SUMMARY | 2025-07-22 07:47 | XMS_ITS | Encounter Summary ---
Author Organization [employer] ([place], [place], [place], [place]) Address [address] [place] [address] Care Team Providers Care Intern Retail Name Role Phone Jay Howell MD Primary Care Provider [phone] Encounter Details Date Type Department Care Team (Late st Contact Info) Description 03/17/2021 Transcribed Document [facility] [place] Family Medicine [address] [place] [address] ProviderJessie MD [address] [place] [address] Social History Tobacco Use Types Packs/Day Years [...] Neurology SAMUEL JUDD - 03/17/2021 8:57 EDT documented in this encounter Plan of Treatment Not on file documented as of this encounter Visit Diagnoses Not on filedocumented in this encounter Care Teams Intern Retail Relationship Specialty Start Date End Date Jay Howell MD [address] [place] [phone] PCP - General Emergency Medicine 11/12/23 documented as of this encounter
--- OUTSIDE RECORDS SUMMARY | 2025-07-22 07:47 | XMS_ITS | Encounter Summary ---
Author Organization [employer] ([place], [place], [place], [place]) Address [address] [place] [address] Care Team Providers Care Supervisor Nurse Name Role Phone Jay Howell MD Primary Care Provider [phone] Encounter Details Date Type Department Care Team (Late st Contact Info) Description 03/17/2021 Transcribed Document [facility] [place] [place] [facility] [place] [address] ProviderJessie MD [address] [place] [address] Social History Tobacco Use Types Packs/Day Years [...] 03/17/2021 10:01 EDT by Krystina Giang V Delimer Felipe Initial Assessment I Legal Guardian : No Krystina Giang V Delimer Felipe - 03/17/2021 14:24 EDT Previously Documented Living Environment : No qualifying data available. Living Situation : Home Patient Lives With : Spouse Employment/Vocation : retired Emergency Contact #1 : Leonardo Emergency Contact #1 Emergency Contact #1 Relationship : Son Emergency Contact #2 : Christian Emergency Contact #2 Emergency Contact #2 Relationship : Son Rahat Social Kayla Khoury [facility] [place] [facility] [place] 03/17/2021 10:01 EDT Enter Doctors Name : Krystina Welsh Social Worker [facility] 03/17/2021 14:24 EDT Does Patient have PCP Listed? : Yes Medical Durable Power of Carry All Driver Name : No Krystina Giang Social Worker [facility] [place] [facility] [place] 03/17/2021 10:01 EDT Initial Assessment II Sensory and Motor Deficits : Weakness Krystina Giang Social Worker [facility] 03/17/2021 10:01 EDT Current Home Treatments and Equipment : Bedside commode, CPAP, Shower chair, Walker, Wheelchair Krystina Giang Social Worker [facility] 03/17/2021 14:24 EDT Discharge Needs I Anticipated Discharge Date : 03/19/2021 EDT Anticipated Discharge To, CM : Home with home health Krystina Giang Social Worker [facility] [place] [facility] [place] - 03/17/2021 14:24 EDT Current Home Treatment/Equipment : Current Home Treatment/Equipment No qualifying data available. Documentation Status Complete : Yes Krystina Giang Social Worker [facility] 03/17/2021 10:01 EDT Discharge Needs II Professional Skilled Services : Professional Skilled Services No qualifying data available. Needs Assistance with Transportation : No Discharge Options Discussed with Patient : Discharge transportation, DME, Home Health, Short term rehabilitation Krystina Giang Social Worker [facility] 03/17/2021 10:01 EDT Narrative Note Narrative Note : HD#1, ELOS-not reported, RRS-Moderate, Boost- 80 yo female admitted for syncopal episide. She fell and hit her head and suffered a right wrist fracture. Cardiology, Neurology, Orthopedics consults noted. She lives with her spouse. Independent with ADLs prior to admission. DME-walker, shower chair, BSC, cpap thru [facility] in [place]. No home 02. HHS in the past out of [place]. Denies rehab stays. DCP-Home with spouse. Possible HHPT/OT CM to follow Krystina Giang Social Worker [facility] [place] [facility] [place] - 03/17/2021 14:24 EDT Electronically signed by Sivan [facility] Conversion Embroidery Finisher Cerner at 02/04/2023 2:01 PM CDT documented in this encounter Plan of Treatment Not on file documented as of this encounter Visit Diagnoses Not on filedocumented in this encounter Care Teams Supervisor Nurse Relationship Specialty Start Date End Date Jay Howell MD [address] [place] [phone] PCP - General Emergency Medicine 11/12/23 documented as of this encounter
--- OUTSIDE RECORDS SUMMARY | 2025-07-22 07:47 | XMS_ITS | Encounter Summary ---
Author Organization [employer] ([place], [place], [place], [place]) Address [address] [place] [address] Care Team Providers Care Transcribing Operators Supervisor Name Role Phone Jay Howell MD Primary Care Provider [phone] Encounter Details Date Type Department Care Team (Late st Contact Info) Description 08/25/2020 Transcribed Document [facility] [place] [address] [place] [address] ProviderJessie MD [address] [place] [address] Social History Tobacco Use Types Packs/Day Years Used Date Smoking Tobacco: Never Assessed Comments Unknown Sex and Gender Information Value Date Recorded Sex Assigned at Not on file Legal Sex Female 7:30 PM CDT Gender Identity Not on file Sexual Orientation Not on file documented as of this encounter Miscellaneous Notes * Cerner Conversion Note - Jessie ProviderMD - 08/25/2020 5:06 PM AIRCRAFT MAINTENANCE SUPERVISOR Meds to Bed Enrollment Entered On: 08/26/2020 [...] on filedocumented in this encounter Care Teams Transcribing Operators Supervisor Relationship Specialty Start Date End Date Jay Howell MD [address] [place] [phone] PCP - General Emergency Medicine 11/12/23 documented as of this encounter
--- OUTSIDE RECORDS SUMMARY | 2025-07-22 07:47 | XMS_ITS | Encounter Summary ---
Author Organization [employer] ([place], [place], [place], [place]) Address [address] [place] [address] Care Team Providers Care Basket Machine Operator Name Role Phone Jay Howell MD Primary Care Provider [phone] Encounter Details Date Type Department Care Team (Late st Contact Info) Description 03/18/2021 Transcribed Document [facility] [place] [facility] [place] [address] ProviderJessie MD [address] [place], [place] [address] Social History Tobacco Use Types Packs/Day Years [...] Non Emp RN - 03/18/2021 7:01 EDT documented in this encounter Plan of Treatment Not on file documented as of this encounter Visit Diagnoses Not on filedocumented in this encounter Care Teams Basket Machine Operator Relationship Specialty Start Date End Date Jay Howell MD [address] [place] [phone] PCP - General Emergency Medicine 11/12/23 documented as of this encounter
--- OUTSIDE RECORDS SUMMARY | 2025-07-22 07:47 | XMS_ITS | Encounter Summary ---
Author Organization [employer] ([place], [place], [place], [place]) Address [address] [place] [address] Care Team Providers Care Recovery Operator Name Role Phone Jay Howell MD Primary Care Provider [phone] Encounter Details Date Type Department Care Team (Late st Contact Info) Description 08/26/2020 Transcribed Document [facility] [place] [address] [place] [address] ProviderJessie MD [address] [place] [address] Social History Tobacco Use Types Packs/Day Years Used Date Smoking Tobacco: Never Assessed Comments Unknown Sex and Gender Information Value Date Recorded Sex Assigned at Not on file Legal Sex Female 7:30 PM CDT Gender Identity Not on file Sexual Orientation Not on file documented as of this encounter Miscellaneous Notes * Cerner Conversion Note - Historical ProviderMD - 08/26/2020 9:06 AM PSYCHIATRY ADULT PHYSICIAN Patient: SKYLER MONTOYA Age: 79 years Sex: Female : 1940 Associated Diagnoses: None Author: Cheng Jennings, Fish Checker Cert 79yo female with Left lower extremity [...] PharmD/MPH Candidate Kell OlsonD Electronically signed by [employer], [facility] Conversion Child Life Assistant Cerner at 02/04/2023 2:17 PM CDT documented in this encounter Plan of Treatment Not on file documented as of this encounter Visit Diagnoses Not on filedocumented in this encounter Care Teams Recovery Operator Relationship Specialty Start Date End Date Jay Howell MD [address] [place] [phone] PCP - General Emergency Medicine 11/12/23 documented as of this encounter
--- OUTSIDE RECORDS SUMMARY | 2025-07-22 07:47 | XMS_ITS | Encounter Summary ---
Author Organization [employer] ([place], [place], [place], [place]) Address [address] [place] [address] Care Team Providers Care Sprayer Operator Name Role Phone Jay Howell MD Primary Care Provider [phone] Encounter Details Date Type Department Care Team (Late st Contact Info) Description 08/24/2020 Transcribed Document [facility] [place] Family Medicine [address] [place] [address] ProviderJessie MD [address] [place], [place] [address] Social History Tobacco Use Types Packs/Day Years Used Date Smoking Tobacco: Never Assessed Comments Unknown Sex and Gender Information Value Date Recorded Sex Assigned at Not on file Legal Sex Female 7:30 PM CDT Gender Identity Not on file Sexual Orientation Not on file documented as of this encounter Miscellaneous Notes * Cerner Conversion Note - Historical ProviderMD - 08/24/2020 7:06 PM PAPERHANGER CONTRACTOR CR Ankle Min 3 Vws LT Ordered: [...] on filedocumented in this encounter Care Teams Sprayer Operator Relationship Specialty Start Date End Date Jay Howell MD [address] [place] [phone] PCP - General Emergency Medicine 11/12/23 documented as of this encounter
--- OUTSIDE RECORDS SUMMARY | 2025-07-22 07:47 | XMS_ITS | Encounter Summary ---
Author Organization [employer] ([place], [place], [place], [place]) Address [address] [place] [address] Care Team Providers Care Police Judge Name Role Phone Jay Howell MD Primary Care Provider [phone] Encounter Details Date Type Department Care Team (Late st Contact Info) Description 03/19/2021 Transcribed Document [facility] [place] [facility] [place] [address] ProviderJessie MD [address] [place], [place] [address] Social History Tobacco Use Types Packs/Day Years [...] these instructions at home: Medicines ??? Take gkem-vik-exmaisr and prescription medicines only as told by [...] provider. Document Revised: 01/25/2020 Document Reviewed: 08/22/2019 [employer] Patient Education ? 2019 [employer] Orthopedics Cast or Splint Care, Adult [...] activities are safe for you. ??? Take fsxf-lso-udwzeuc and prescription medicines only as told by [...] provider. Document Revised: 07/31/2018 Document Reviewed: 03/26/2017 [employer] Patient Education ? 2020 [employer]. documented in this encounter Plan of Treatment Not on file documented as of this encounter Visit Diagnoses Not on filedocumented in this encounter Care Teams Police Judge Relationship Specialty Start Date End Date Jay Howell MD [address] [place] [phone] PCP - General Emergency Medicine 11/12/23 documented as of this encounter
--- OUTSIDE RECORDS SUMMARY | 2025-07-22 07:47 | XMS_ITS | Encounter Summary ---
Author Organization [employer] ([place], [place], [place], [place]) Address [address] [place] [address] Care Team Providers Care Cement Sack Breaker Name Role Phone Jay Howell MD Primary Care Provider [phone] Encounter Details Date Type Department Care Team (Late st Contact Info) Description 03/18/2021 Transcribed Document [facility] [place] [address] ProviderJessie MD [address] [place] [address] Social History Tobacco Use Types Packs/Day Years [...] Insurance 1 Health Plan: MEDICARE Policy Number: [id number] Authorization Number: Insurance 2 Health Plan: AARP N Policy Number: [id number] Authorization Number: Insurance Primary Name : MEDICARE Policy Number: [id number] Authorized Service Begin Date-Primary : 03/16/2021 EDT Historical Authorization Comments-Primary : No Authorization Comments Found MARILYNN RAMÍREZ, RN-Utilization Review - 03/18/2021 8:56 EDT Electronically signed by Sivan [facility] Conversion Carton Maker Cerner at 02/04/2023 2:20 PM CDT documented in this encounter Plan of Treatment Not on file documented as of this encounter Visit Diagnoses Not on filedocumented in this encounter Care Teams Cement Sack Breaker Relationship Specialty Start Date End Date Jay Howell MD [address] [place] [phone] PCP - General Emergency Medicine 11/12/23 documented as of this encounter
--- OUTSIDE RECORDS SUMMARY | 2025-07-22 07:47 | XMS_ITS | Encounter Summary ---
Author Organization [employer] ([place], [place], [place], [place]) Address [address] [place] [address] Care Team Providers Care Lawyer Real Estate Name Role Phone Jay Howell MD Primary Care Provider [phone] Encounter Details Date Type Department Care Team (Late st Contact Info) Description 08/26/2020 Transcribed Document [facility] [place] Medicine [address] [place] [address] ProviderJessie MD [address] [place] [address] Social History Tobacco Use Types Packs/Day Years Used Date Smoking Tobacco: Never Assessed Comments Unknown Sex and Gender Information Value Date Recorded Sex Assigned at Not on file Legal Sex Female 7:30 PM CDT Gender Identity Not on file Sexual Orientation Not on file documented as of this encounter Miscellaneous Notes * Cerner Conversion Note - Historical ProviderMD - 08/26/2020 6:06 PM SEED CUTTER Spiritual Care Short Form Entered On: 08/26/2020 18:06 EST Performed On: 08/26/2020 18:06 EST by JEREMIAH HULL General Information, Spiritual Care Spiritual Care Referred by : Nurse Reason for Visit : Referral/Consult Yazdanism Preference : Caodaism JEREMIAH HULL - 08/26/2020 18:06 EST Electronically signed by Gayle Finnegan Conversion Claims Service Representative Cerner at 02/04/2023 2:17 PM CDT documented in this encounter Plan of Treatment Not on file documented as of this encounter Visit Diagnoses Not on filedocumented in this encounter Care Teams Lawyer Real Estate Relationship Specialty Start Date End Date Jay Howell MD [address] [place] [phone] PCP - General Emergency Medicine 11/12/23 documented as of this encounter
--- OUTSIDE RECORDS SUMMARY | 2025-07-22 07:47 | XMS_ITS | Encounter Summary ---
Author Organization [employer] ([place], [place], [place], [place]) Address [address] [place] [address] Care Team Providers Care Press Loader Name Role Phone Jay Howell MD Primary Care Provider [phone] Encounter Details Date Type Department Care Team (Late st Contact Info) Description 08/26/2020 Transcribed Document [facility] [place] [address] [place] [address] ProviderJessie MD [address] [place] [address] Social History Tobacco Use Types Packs/Day Years Used Date Smoking Tobacco: Never Assessed Comments Unknown Sex and Gender Information Value Date Recorded Sex Assigned at Not on file Legal Sex Female 7:30 PM CDT Gender Identity Not on file Sexual Orientation Not on file documented as of this encounter Miscellaneous Notes * Cerner Conversion Note - Historical ProviderMD - 08/26/2020 2:23 PM FINISH ROLLS OPERATOR Patient: SKYLER MONTOYA Age: 79 Years [...] LEFT PT occlusion - distal *Operation RIGHT USER EXPERIENCE LEAD access - ultrasound guided Aortogram with LEFT lower extremity run-off LEFT PT angioplasty (2.5-6w316hk Nanocross) LEFT peroneal angioplasty (2.5-0z436mp Nanocross) RIGHT USER EXPERIENCE LEAD closure (Angioseal) LEFT leg debridement *Surgeon Elie Verde MD Anesthesia MAC *Estimated Blood Loss Minimal *Findings By aortogram, the distal abdominal aorta is patent. On the RIGHT, the common iliac (NILAY), internal iliac (IIA) and external iliac (EIA) arteries are patent. Beyond this point, the vasculature was not specifically interrogated. On the LEFT, the NILAY, IIA and EIA are patent. The common femoral (USER EXPERIENCE LEAD) artery is patent dividing into the profunda [...] The patient was placed supine on the electroplating laborer table and the BILATERAL groins and LEFT leg were prepped and draped in usual sterile fashion. The patient was identified as SKYLER MONTOYA by the entire procedural team as per time out protocol. Next, local anesthetic was infiltrated into the groin region. The RIGHT USER EXPERIENCE LEAD was accessed in retrograde fashion under ultrasound guidance using micropuncture technique and a 5Fr sheath was installed. Next, an Omni flush catheter was advanced into the infrarenal aorta and an aortogram was obtained; see above. Next, the catheter and 035/260 glide advantage wire (GAW) were directed up-and-over into the LEFT USER EXPERIENCE LEAD and additional run-off views were obtained in station; see above. Next, the sheath was upsized to a 6Fr/45cm destination sheath which was positioned in the LEFT USER EXPERIENCE LEAD. The patient was then systemically heparinized. Next, [...] 13:15:00 (08/26/20 13:48:53) Electronically signed by Sivan [facility] Conversion Lens Inspector Cerner at 02/04/2023 2:09 PM CDT documented in this encounter Plan of Treatment Not on file documented as of this encounter Visit Diagnoses Not on filedocumented in this encounter Care Teams Press Loader Relationship Specialty Start Date End Date Jay Howell MD [address] [place] [phone] PCP - General Emergency Medicine 11/12/23 documented as of this encounter
--- OUTSIDE RECORDS SUMMARY | 2025-07-22 07:47 | XMS_ITS | Encounter Summary ---
Author Organization [employer] ([place], [place], [place], [place]) Address [address] [place] [address] Care Team Providers Care Washtub Worker Name Role Phone Jay Howell MD Primary Care Provider [phone] Encounter Details Date Type Department Care Team (Late st Contact Info) Description 03/18/2021 Transcribed Document [facility] [place] [facility] [place] [address] ProviderJessie MD [address] [place], [place] [address] Social History Tobacco Use Types Packs/Day Years [...] Lymph # 1.66 x10(3)/uL 03/18/2021 05:19 EDT Grant % 11.4 % (High) 03/18/2021 05:19 EDT Grant # 0.75 K/uL 03/18/2021 05:19 EDT Eos [...] on filedocumented in this encounter Care Teams Washtub Worker Relationship Specialty Start Date End Date Jay Howell MD [address] [place] [phone] PCP - General Emergency Medicine 11/12/23 documented as of this encounter
--- OUTSIDE RECORDS SUMMARY | 2025-07-22 07:47 | XMS_ITS | Encounter Summary ---
Author Organization [employer] ([place], [place], [place], [place]) Address [address] [place] [address] Care Team Providers Care Outside Event Sales Specialist Name Role Phone Jay Howell MD Primary Care Provider [phone] Encounter Details Date Type Department Care Team (Late st Contact Info) Description 03/17/2021 Transcribed Document [facility] [place] [facility] [place] [address] ProviderJessie MD [address] [place] [id number] Social History Tobacco Use Types Packs/Day Years [...] on filedocumented in this encounter Care Teams Outside Event Sales Specialist Relationship Specialty Start Date End Date Jay Howell MD [address] [place] [phone] PCP - General Emergency Medicine 11/12/23 documented as of this encounter
--- OUTSIDE RECORDS SUMMARY | 2025-07-22 07:47 | XMS_ITS | Encounter Summary ---
Author Organization [employer] ([place], [place], [place], [place]) Address [address] [place] [address] Care Team Providers Care Health Information Specialist Name Role Phone Jay Howell MD Primary Care Provider [phone] Encounter Details Date Type Department Care Team (Late st Contact Info) Description 03/17/2021 Transcribed Document [facility] [place] [address] [place] [address] ProviderJessie MD [address] [place] [address] Social History Tobacco Use Types Packs/Day Years [...] pain. SOCIAL HISTORY: The patient lives in [place] with her . She has 3 children, 2 of whom are living. 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 She still drives and walks independently. FAMILY [...] are 0 to 1+. Coordination shows intact fpeiuc-ld-xbep on the left and ummy-ur-ajei on both sides. Gait was not tested. [...] her . I will follow with you. /[id number] Arron Clarke MD WSB/AQ / WSB / MODL /[id number] Electronically signed by Sivan [facility] Conversion Medical Assistant Instructor Cerner at 02/04/2023 2:15 PM CDT documented in this encounter Plan of Treatment Not on file documented as of this encounter Visit Diagnoses Not on filedocumented in this encounter Care Teams Health Information Specialist Relationship Specialty Start Date End Date Jay Howell MD [address] [place] [phone] PCP - General Emergency Medicine 11/12/23 documented as of this encounter
--- OUTSIDE RECORDS SUMMARY | 2025-07-22 07:47 | XMS_ITS | Referral Summary ---
Author Organization [employer] ([place], [place], [place], [place]) Address [address] [place] [address] Care Team Providers Care Boiler Tester Name Role Phone Jay Howell MD Primary Care Provider [phone] Allergies Active Allergy Reactions Criticality Noted Date [...] Date Kennedy rded Speak language other than Bulgarian at home Not on file 10/30/2023 Want [...] on file Insurance MEDICARE PART A B [facility] [place] [id number] Advance Directives For more information, please contact: [phone] * Full Code (Latest Code Status on File) Date Activated Date Inactivated Comments 11/25/2022 10:41 AM 11/26/2022 5:33 PM * Full Code Date Activated Date Inactivated Comments 11/25/2022 8:11 AM 11/25/2022 10:41 AM -Attempt Resu scitation if person has no pulse and is not breathing. -If no pulse or not breathing attempt CPR/CODE. -Call Rapid Response if patient is in distress. Care Teams Boiler Tester Relationship Specialty Start Date End Date Jay Howell MD [address] [place] [phone] PCP - General Emergency Medicine 11/12/23
--- OUTSIDE RECORDS SUMMARY | 2025-07-22 07:47 | XMS_ITS | Encounter Summary ---
Author Organization [employer] ([place], [place], [place], [place]) Address [address] [place] [address] Care Team Providers Care Director Geothermal Operations Name Role Phone Jay Howell MD Primary Care Provider [phone] Encounter Details Date Type Department Care Team (Late st Contact Info) Description 08/26/2020 Transcribed Document [facility] [place] [address] [place] [address] ProviderJessie MD [address] [place], [place] [address] Social History Tobacco Use Types Packs/Day Years Used Date Smoking Tobacco: Never Assessed Comments Unknown Sex and Gender Information Value Date Recorded Sex Assigned at Not on file Legal Sex Female 7:30 PM CDT Gender Identity Not on file Sexual Orientation Not on file documented as of this encounter Miscellaneous Notes * Cerner Conversion Note - Historical ProviderMD - 08/26/2020 1:15 PM PULP BEATER [facility] Main OR Preop Summary Primary Physician: KAELA HEBERT MD Finalized Date/Time: 08/26/20 13:59:45 Pt. Name: SKYLER MONTOYA.O.B./Sex: 1940 Female Med Rec #: [id number] Physician: BETH DAVALOS MD-INT Financial #: [id number] Pt. Type: I Room/Bed: [facility]/ Admit/Disch: 08/25/20 05:53:00 - Institution: [facility] PreOp Case Times Entry 1 In Preop 08/26/20 10:52:00 Ready for Holding n/a Room Patient Ready for 08/26/20 11:30:00 Surgery Patient Out of Preop 08/26/20 12:57:00 Patient Out of n/a Holding Room Last Modified By: CARLTON GUTIERREZ 08/26/20 13:59:44 [facility] PreOp Case Times Audit 08/26/20 13:59:44 Senior Technical Architect: [email or web address] Modifier: [email or web address] <+> 1 Patient Out of Preop 08/26/20 11:36:02 Senior Technical Architect: [email or web address] Modifier: [email or web address] <+> 1 Patient Ready for Surgery Finalized By: CARLTON GUTIERREZ Document Signatures Signed By: CARLTON GUTIERREZ 08/26/20 13:59 Electronically signed by Sivan [facility] Conversion Metal Plater Cerner at 02/04/2023 2:16 PM CDT documented in this encounter Plan of Treatment Not on file documented as of this encounter Visit Diagnoses Not on filedocumented in this encounter Care Teams Director Geothermal Operations Relationship Specialty Start Date End Date Jay Howell MD [address] [place] [phone] PCP - General Emergency Medicine 11/12/23 documented as of this encounter
--- OUTSIDE RECORDS SUMMARY | 2025-07-22 07:47 | XMS_ITS | Encounter Summary ---
Author Organization [employer] ([place], [place], [place], [place]) Address [address] [place] [address] Care Team Providers Care Yeast Washer Name Role Phone Jay Howell MD Primary Care Provider [phone] Encounter Details Date Type Department Care Team (Late st Contact Info) Description 03/17/2021 Transcribed Document [facility] [place] [facility] [place] [address] ProviderJessie MD [address] [place] [phone] Social History Tobacco Use Types Packs/Day Years [...] on filedocumented in this encounter Care Teams Yeast Washer Relationship Specialty Start Date End Date Jay Howell MD [address] [place] [phone] PCP - General Emergency Medicine 11/12/23 documented as of this encounter
--- OUTSIDE RECORDS SUMMARY | 2025-07-22 07:47 | XMS_ITS | Encounter Summary ---
Author Organization [employer] ([place], [place], [place], [place]) Address [address] [place] [address] Care Team Providers Care Note Teller Name Role Phone Jay Howell MD Primary Care Provider [phone] Encounter Details Date Type Department Care Team (Late st Contact Info) Description 08/26/2020 Transcribed Document [facility] [place] Family Medicine [address] [place] [address] ProviderJessie MD [address] [place] [address] Social History Tobacco Use Types Packs/Day Years Used Date Smoking Tobacco: Never Assessed Comments Unknown Sex and Gender Information Value Date Recorded Sex Assigned at Not on file Legal Sex Female 7:30 PM CDT Gender Identity Not on file Sexual Orientation Not on file documented as of this encounter Miscellaneous Notes * Cerner Conversion Note - Historical ProviderMD - 08/26/2020 10:39 AM MANAGER JAVA UM Authorization Entered On: 08/26/2020 10:39 EST Performed On: 08/26/2020 10:39 EST by MARILYNN RAMÍREZ, RN-Utilization Review Primary Insurance Authorization Authorization and Policy Numbers : Insurance 1 Health Plan: MEDICARE Policy Number: [id number] Authorization Number: Insurance 2 Health Plan: AARP N Policy Number: [id number] Authorization Number: Insurance Primary Name : MEDICARE Policy Number: [id number] Authorized Service Begin Date-Primary : 08/25/2020 EST Historical Authorization Comments-Primary : No Authorization Comments Found MARILYNN RAMÍREZ, RN-Utilization Review - 08/26/2020 10:39 EST documented in this encounter Plan of Treatment Not on file documented as of this encounter Visit Diagnoses Not on filedocumented in this encounter Care Teams Note Teller Relationship Specialty Start Date End Date Jay Howell MD [address] [place] [phone] PCP - General Emergency Medicine 11/12/23 documented as of this encounter
--- OUTSIDE RECORDS SUMMARY | 2025-07-22 07:47 | XMS_ITS | Encounter Summary ---
Author Organization [employer] ([place], [place], [place], [place]) Address [address] [place] [address] Care Team Providers Care Supervisor Picking Crew Name Role Phone Jay Howell MD Primary Care Provider [phone] Encounter Details Date Type Department Care Team (Late st Contact Info) Description 03/16/2021 Transcribed Document [facility] [place] [facility] [place] [address] ProviderJessie MD [address] [place], [place] [phone] Social History Tobacco Use Types Packs/Day Years [...] Communication Barrier : None Primary Language : Bahamian Any Spiritual/Cultural Needs or Requests : No [...] WDL : WDL with exceptions (Comment: Dizziness REGULATORY AFFAIRS DIRECTOR, states that she passed out and the room was spinning [Viri Gonsales RN - 03/16/2021 12:57 EDT] ) Viri Gonsales RN - 03/16/2021 12:57 EDT Electronically signed by [facility], [facility] Conversion Spa Assistant Manager Cerner at 02/04/2023 2:07 PM CDT documented in this encounter Plan of Treatment Not on file documented as of this encounter Visit Diagnoses Not on filedocumented in this encounter Care Teams Supervisor Picking Crew Relationship Specialty Start Date End Date Jay Howell MD [address] [place] [phone] PCP - General Emergency Medicine 11/12/23 documented as of this encounter
--- OUTSIDE RECORDS SUMMARY | 2025-07-22 07:47 | XMS_ITS | Encounter Summary ---
Author Organization [employer] ([place], [place], [place], [place]) Address [address] [address] Care Team Providers Care Reliability Manager Name Role Phone Jay Howell MD Primary Care Provider [phone] Encounter Details Date Type Department Care Team (Late st Contact Info) Description 03/18/2021 Transcribed Document [facility] [place] [address] [place] [address] ProviderJessie MD [address] [place] [address] [phone] Social History Tobacco Use Types Packs/Day Years [...] 03/18/2021 13:27 EDT Electronically signed by Sivan [facility] Conversion Bilingual Account Manager Cerner at 02/04/2023 2:02 PM CDT documented in this encounter Plan of Treatment Not on file documented as of this encounter Visit Diagnoses Not on filedocumented in this encounter Care Teams Reliability Manager Relationship Specialty Start Date End Date Jay Howell MD [address] [place] [phone] PCP - General Emergency Medicine 11/12/23 documented as of this encounter
--- OUTSIDE RECORDS SUMMARY | 2025-07-22 07:47 | XMS_ITS | Encounter Summary ---
Author Organization [employer] ([place], [place], [place], [place]) Address [address] [place] [address] Care Team Providers Care Tankage Grinder Name Role Phone Jay Howell MD Primary Care Provider [phone] Encounter Details Date Type Department Care Team (Late st Contact Info) Description 03/19/2021 Transcribed Document [facility] [place] [facility], [facility] [place] [address] ProviderJessie MD [address] [place], [place] 3147[address] Social History Tobacco Use Types Packs/Day Years [...] of the form. Electronically signed by Sivan, [facility] Conversion Audio Visual Manager Cerner at 02/04/2023 2:02 PM CDT documented in this encounter Plan of Treatment Not on file documented as of this encounter Visit Diagnoses Not on filedocumented in this encounter Care Teams Tankage Grinder Relationship Specialty Start Date End Date Jay Howell MD [address] [place] [phone] PCP - General Emergency Medicine 11/12/23 documented as of this encounter
--- OUTSIDE RECORDS SUMMARY | 2025-07-22 07:47 | XMS_ITS | Encounter Summary ---
Author Organization [employer] ([place], [place], [place], [place]) Address [address] [place] [address] Care Team Providers Care Presser Machine Name Role Phone Jay Howell MD Primary Care Provider [phone] Encounter Details Date Type Department Care Team (Late st Contact Info) Description 03/16/2021 Transcribed Document [facility] [place] [address] [place] [address] ProviderJessie MD [address] [place] [address] [phone] Social History Tobacco Use Types Packs/Day Years [...] : 2 - Emergent Tracking Group : [facility] ED NICOLE CHEN RN - 03/16/2021 11:32 [...] 11:35:39 EDT) Problems(Active) Apnea, sleep (SNOMED CT :125387904 ) Name of Problem: Apnea, sleep ; Recorder: JUAN LUIS GIL RN; Confirmation: Confirmed ; Classification: Medical ; Code: [id number] ; Contributor System: PowerChart ; Last Updated: 11/12/2014 10:12 EST ; Life Cycle Date: 11/12/2014 ; Life Cycle Status: Active ; Vocabulary: SNOMED CT Arthritis (SNOMED CT :8896773 ) Name of Problem: Arthritis ; Recorder: KENYON CHAMBERS RN; Confirmation: Confirmed ; Classification: Medical ; Code: 1959944 ; Contributor System: PowerChart ; Last Updated: 04/10/2016 8:04 EDT ; Life Cycle Date: 08/13/2013 ; Life Cycle Status: Active ; Vocabulary: SNOMED CT Atrial fibrillation with RVR (SNOMED CT :0592967611 ) Name of Problem: Atrial fibrillation with RVR ; Recorder: SANG RICO APRN; Confirmation: Confirmed ; Classification: Medical ; Code: 8317332428 ; Contributor System: PowerChart ; Last Updated: 04/10/2016 8:05 EDT ; Life Cycle Date: 04/10/2016 ; Life Cycle Status: Active ; Responsible Provider: SANG RICO APRN; Vocabulary: SNOMED CT Blood clot (SNOMED CT :552800540 ) Name of Problem: Blood clot ; Recorder: KENYON CHAMBERS RN; Confirmation: Confirmed ; Classification: Patient Stated ; Code: 769235246 ; Contributor System: PowerChart ; Last Updated: [...] Vocabulary: Patient Care Chest pain (SNOMED CT :13009218 ) Name of Problem: Chest pain ; Recorder: SANG RICO APRN; Confirmation: Complaint of ; Classification: Medical ; Code: 36359207 ; Contributor System: PowerChart ; Last Updated: 04/10/2016 8:05 EDT ; Life Cycle Status: Active ; Responsible Provider: SANG RICO APRN; Vocabulary: SNOMED CT Chronic anticoagulation (SNOMED CT :370950890 ) Name of Problem: Chronic anticoagulation ; Recorder: SANG RICO APRN; Confirmation: Confirmed ; Classification: Medical ; Code: 919080614 ; Contributor System: [employer]Chart ; Last Updated: 04/10/2016 8:05 EDT ; Life Cycle Date: 04/10/2016 ; Life Cycle Status: Active ; Responsible Provider: SANG RICO APRN; Vocabulary: SNOMED CT Clotting disorder (SNOMED CT :725558259 ) Name of Problem: Clotting disorder ; Recorder: KENYON CHAMBERS RN; Confirmation: Confirmed ; Classification: Patient Stated ; Code: 234207445 ; Contributor System: [employer]Chart ; Last Updated: 03/28/2014 19:29 EDT ; Life Cycle Date: 08/13/2013 ; Life Cycle Status: Active ; Vocabulary: SNOMED CT COPD (SNOMED CT :43428733 ) Name of Problem: COPD ; Recorder: KENYON CHAMBERS RN; Confirmation: Confirmed ; Classification: Medical ; Code: 73143861 ; Contributor System: [employer]Chart ; Last Updated: 04/10/2016 8:03 EDT ; Life Cycle Date: 08/13/2013 ; Life Cycle Status: Active ; Vocabulary: SNOMED CT Coronary artery disease (SNOMED CT :3942299733 ) Name of Problem: Coronary artery disease ; Recorder: KENYON CHAMBERS RN; Confirmation: Confirmed ; Classification: Medical ; Code: 4967129396 ; Contributor System: [employer]Chart ; Last Updated: 04/10/2016 8:03 EDT ; Life Cycle Date: 08/13/2013 ; Life Cycle Status: Active ; Vocabulary: SNOMED CT Diabetes mellitus (SNOMED CT :658754263 ) Name of Problem: Diabetes mellitus ; Recorder: KENYON CHAMBERS RN; Confirmation: Confirmed ; Classification: Medical ; Code: 873433711 ; Contributor System: [employer]Chart ; Last Updated: 04/10/2016 8:04 EDT ; Life Cycle Date: 08/13/2013 ; Life Cycle Status: Active ; Vocabulary: SNOMED CT Emphysema (SNOMED CT :977883755 ) Name of Problem: Emphysema ; Recorder: JUAN LUIS GIL RN; Confirmation: Confirmed ; Classification: Medical ; Code: 740352259 ; Contributor System: PowerChart ; Last Updated: 11/12/2014 10:11 EST ; Life Cycle Date: 11/12/2014 ; Life Cycle Status: Active ; Vocabulary: SNOMED CT GERD - Gastro-esophageal reflux disease (SNOMED CT :2637905491 ) Name of Problem: GERD - Gastro-esophageal reflux disease ; Recorder: KENYON CHAMBERS RN; Confirmation: Confirmed ; Classification: Medical ; Code: 5233047354 ; Contributor System: PowerChart ; Last Updated: [...] Patient Care High blood pressure (SNOMED CT :50258591 ) Name of Problem: High blood pressure ; Recorder: KENYON CHAMBERS RN; Confirmation: Confirmed ; Classification: Medical ; Code: 20133126 ; Contributor System: PowerChart ; Last Updated: 04/10/2016 8:03 EDT ; Life Cycle Date: 08/13/2013 ; Life Cycle Status: Active ; Vocabulary: SNOMED CT History of obstructive sleep apnea (IMO :55639962 ) Name of Problem: History of obstructive sleep apnea ; Recorder: SYSTEM, SYSTEM; Confirmation: Confirmed ; Classification: Medical ; Code: 80426585 ; Last Updated: 08/25/2020 18:21 EST ; Life Cycle Date: 08/25/2020 ; Life Cycle Status: Active ; Vocabulary: IMO Hx of pulmonary embolus (SNOMED CT :218274620 ) Name of Problem: Hx of pulmonary embolus ; Recorder: SANG RICO APRN; Confirmation: Confirmed ; Classification: Medical ; Code: 661322303 ; Contributor System: PowerChart ; Last Updated: 04/10/2016 8:05 EDT ; Life Cycle Date: 04/10/2016 ; Life Cycle Status: Active ; Responsible Provider: SANG RICO APRN; Vocabulary: SNOMED CT Hyperlipidemia (SNOMED CT :29488690 ) Name of Problem: Hyperlipidemia ; Recorder: KENYON CHAMBERS RN; Confirmation: Confirmed ; Classification: Medical ; Code: 32449627 ; Contributor System: [employer]Chart ; Last Updated: 04/10/2016 8:03 EDT ; Life Cycle Date: 08/13/2013 ; Life Cycle Status: Active ; Vocabulary: SNOMED CT Multiple renal cysts (SNOMED CT :867798730 ) Name of Problem: Multiple renal cysts ; Recorder: KENYON CHAMBERS RN; Confirmation: Confirmed ; Classification: Medical ; Code: 522985765 ; Contributor System: [employer]Chart ; Last Updated: 04/10/2016 8:04 EDT ; Life Cycle Date: 08/13/2013 ; Life Cycle Status: Active ; Vocabulary: SNOMED CT Stented coronary artery (SNOMED CT :8374817182 ) Name of Problem: Stented coronary artery ; Recorder: KENYON CHAMBERS RN; Confirmation: Confirmed ; Classification: Medical ; Code: 1050348229 ; Contributor System: [employer]Chart ; Last Updated: 04/10/2016 8:03 EDT ; Life Cycle Date: 08/13/2013 ; Life Cycle Status: Active ; Vocabulary: SNOMED CT Diagnoses(Active) Syncope/Near syncope Date: 03/16/2021 ; Diagnosis Type: Reason For Visit ; Confirmation: Complaint of ; Clinical Dx: Syncope/Near syncope ; Classification: Medical ; Clinical Service: Emergency medicine ; Code: PNED ; Probability: 0 ; Diagnosis Code: [id number] ED Height and Weight Height Source : Stated Height Entry Format : Shokan Height, Feet : 5 ft(Converted to: 152 cm, 60 Inch) Height, Inches : 3 Inch(Converted to: 0 ft 3 Inch, 7.62 cm) Clinical Height : 160.02 cm Weight Source, ED : Critical estimated dosing weight Weight Entry Format : [place]okan Weight, Pounds : 158 lb Clinical Dosing Weight : 71.82 kg Body Surface Area (BSA) : 1.75 m2 Body Mass Index : 28 kg/m2 (HI) [place] Body Weight (IBW) : 52.02 kg NICOLE CHEN RN - 03/16/2021 11:32 EDT documented in this encounter Plan of Treatment Not on file documented as of this encounter Visit Diagnoses Not on filedocumented in this encounter Care Teams Presser Machine Relationship Specialty Start Date End Date Jay Howell MD [address] [place] [phone] PCP - General Emergency Medicine 11/12/23 documented as of this encounter
--- OUTSIDE RECORDS SUMMARY | 2025-07-22 07:47 | XMS_ITS | Encounter Summary ---
Author Organization [employer] ([place], [place], [place], [place]) Address [address] [place] [address] Care Team Providers Care Accounts Receivable Supervisor Name Role Phone Jay Howell MD Primary Care Provider [phone] Encounter Details Date Type Department Care Team (Late st Contact Info) Description 03/17/2021 Transcribed Document [facility] [place] [address] [place] [address] ProviderJessie MD [address] [place] [address] Social History Tobacco Use Types Packs/Day Years [...] Lymph # 1.52 x10(3)/uL 03/16/2021 11:38 EDT [place] % 5.1 % 03/16/2021 11:38 EDT [place] # 0.50 K/uL 03/16/2021 11:38 EDT [employer]os [...] Appearance CLEAR2 03/16/2021 14:09 EDT Urine Specific [place] 1.015 03/17/2021 04:10 EDT Urine Specific [place] 1.014 03/16/2021 14:09 EDT Urine pH Dipstick [...] filedocumented in this encounter Care Teams Accounts Receivable Supervisor Relationship Specialty Start Date End Date Jay Howell MD [address] [place] [phone] PCP - General Emergency Medicine 11/12/23 documented as of this encounter
--- OUTSIDE RECORDS SUMMARY | 2025-07-22 07:47 | XMS_ITS | Encounter Summary ---
Author Organization [employer] ([place], [place], [place], [place]) Address [address] [place] [address] Care Team Providers Care Teaching Music Lessons Name Role Phone Jay Howell MD Primary Care Provider [phone] Encounter Details Date Type Department Care Team (Late st Contact Info) Description 03/16/2021 Transcribed Document [facility] [place] [address] [place] [address] ProviderJessie MD [address] [place], [place] [address] Social History Tobacco Use Types Packs/Day Years [...] on filedocumented in this encounter Care Teams Teaching Music Lessons Relationship Specialty Start Date End Date Jay Howell MD [address] [place] [phone] PCP - General Emergency Medicine 11/12/23 documented as of this encounter
--- OUTSIDE RECORDS SUMMARY | 2025-07-22 07:47 | XMS_ITS | Encounter Summary ---
Author Organization [employer] ([place], [place], [place], [place]) Address [address] [place] [address] Care Team Providers Care Weighmaster Lead Name Role Phone Jay Howell MD Primary Care Provider [phone] Encounter Details Date Type Department Care Team (Late st Contact Info) Description 08/25/2020 Transcribed Document [facility] [place] [address] [place] [address] ProviderJessie MD [address] [place] [address] Social History Tobacco Use Types Packs/Day Years Used Date Smoking Tobacco: Never Assessed Comments Unknown Sex and Gender Information Value Date Recorded Sex Assigned at Not on file Legal Sex Female 7:30 PM CDT Gender Identity Not on file Sexual Orientation Not on file documented as of this encounter Miscellaneous Notes * Cerner Conversion Note - Historical ProviderMD - 08/25/2020 1:02 PM APRON WORKER Patient: SKYLER MONTOYA Age: 79 years Sex: [...] Dr. Avtar Moeller Electronically signed by Sivan, [facility] Conversion Percussion Teacher Cerner at 02/04/2023 2:06 PM CDT documented in this encounter Plan of Treatment Not on file documented as of this encounter Visit Diagnoses Not on filedocumented in this encounter Care Teams Weighmaster Lead Relationship Specialty Start Date End Date Jay Howell MD [address] [place] [phone] PCP - General Emergency Medicine 11/12/23 documented as of this encounter
--- OUTSIDE RECORDS SUMMARY | 2025-07-22 07:47 | XMS_ITS | Encounter Summary ---
Author Organization [employer] ([place], [place], [place], [place]) Address [address] [place] [address] Care Team Providers Care Manufacturing Recruiter Name Role Phone Jay Howell MD Primary Care Provider [phone] Encounter Details Date Type Department Care Team (Late st Contact Info) Description 08/25/2020 Transcribed Document [facility] [place] [address] [place] [address] ProviderJessie MD [address] [place] [address] Social History Tobacco Use Types Packs/Day Years Used Date Smoking Tobacco: Never Assessed Comments Unknown Sex and Gender Information Value Date Recorded Sex Assigned at Not on file Legal Sex Female 7:30 PM CDT Gender Identity Not on file Sexual Orientation Not on file documented as of this encounter Miscellaneous Notes * Cerner Conversion Note - Jessie ProviderMD - 08/25/2020 8:09 AM CREDIT VERIFIER ED Event Note Entered On: 08/25/2020 8:11 [...] 08/25/2020 8:09 EST Electronically signed by Sivan [facility] Conversion Credit Administration Manager Cerner at 02/04/2023 2:06 PM CDT documented in this encounter Plan of Treatment Not on file documented as of this encounter Visit Diagnoses Not on filedocumented in this encounter Care Teams Manufacturing Recruiter Relationship Specialty Start Date End Date Jay Howell MD [address] [place] [phone] PCP - General Emergency Medicine 11/12/23 documented as of this encounter
--- OUTSIDE RECORDS SUMMARY | 2025-07-22 07:47 | XMS_ITS | Encounter Summary ---
Author Organization [employer] ([place], [place], [place], [place]) Address [address] [place] [address] Care Team Providers Care Vendor Analyst Name Role Phone Jay Howell MD Primary Care Provider [phone] Encounter Details Date Type Department Care Team (Late st Contact Info) Description 08/25/2020 Transcribed Document [facility] [place] [facility] [place] [address] ProviderJessie MD [address] [place] [address] Social History Tobacco Use Types Packs/Day Years Used Date Smoking Tobacco: Never Assessed Comments Unknown Sex and Gender Information Value Date Recorded Sex Assigned at Not on file Legal Sex Female 7:30 PM CDT Gender Identity Not on file Sexual Orientation Not on file documented as of this encounter Miscellaneous Notes * Cerner Conversion Note - Historical ProviderMD - 08/25/2020 10:42 AM BIOENGINEER Patient: SKYLER MONTOYA Age: 79 years Sex: Female : 1940 Associated Diagnoses: None Author: KAVITHA HIDALGO MD-INF ID CONSULT DICTATED documented in this encounter Plan of Treatment Not on file documented as of this encounter Visit Diagnoses Not on filedocumented in this encounter Care Teams Vendor Analyst Relationship Specialty Start Date End Date Jay Howell MD [address] [place] [phone] PCP - General Emergency Medicine 11/12/23 documented as of this encounter
--- OUTSIDE RECORDS SUMMARY | 2025-07-22 07:47 | XMS_ITS | Encounter Summary ---
Author Organization [employer] ([place], [place], [place], [place]) Address [address] [place] [address] Care Team Providers Care Senior Mainframe Developer Name Role Phone Jay Howell MD Primary Care Provider [phone] Encounter Details Date Type Department Care Team (Late st Contact Info) Description 08/25/2020 Transcribed Document [facility] [place] [address] [place] [address] ProviderJessie MD [address] [place] [address] Social History Tobacco Use Types Packs/Day Years Used Date Smoking Tobacco: Never Assessed Comments Unknown Sex and Gender Information Value Date Recorded Sex Assigned at Not on file Legal Sex Female 7:30 PM CDT Gender Identity Not on file Sexual Orientation Not on file documented as of this encounter Miscellaneous Notes * Cerner Conversion Note - Jessie Yuen MD - 08/25/2020 9:27 AM CERTIFIED MASTER LOCKSMITH Patient: SKYLER MONTOYA Age: 79 years Sex: [...] changes. Rx will follow, [place] PharmD,BCPS,BCCCP #[phone] Electronically signed by Sivan, [facility] Conversion Compliance Field Technician Cerner at 02/04/2023 2:13 PM CDT documented in this encounter Plan of Treatment Not on file documented as of this encounter Visit Diagnoses Not on filedocumented in this encounter Care Teams Senior Mainframe Developer Relationship Specialty Start Date End Date Jay Howell MD [address] [place] [phone] PCP - General Emergency Medicine 11/12/23 documented as of this encounter
--- OUTSIDE RECORDS SUMMARY | 2025-07-22 07:47 | XMS_ITS | Encounter Summary ---
Author Organization [employer] ([place], [place], [place], [place]) Address [address] [place] [address] Care Team Providers Care Cartridge Filler Name Role Phone Jay Howell MD Primary Care Provider [phone] Encounter Details Date Type Department Care Team (Late st Contact Info) Description 03/17/2021 Transcribed Document [facility] [place] [address] ProviderJessie MD [address] [place], [place] [phone] Social History Tobacco Use Types Packs/Day Years [...] on filedocumented in this encounter Care Teams Cartridge Filler Relationship Specialty Start Date End Date Jay Howell MD [address] [place] [phone] PCP - General Emergency Medicine 11/12/23 documented as of this encounter
--- OUTSIDE RECORDS SUMMARY | 2025-07-22 07:47 | XMS_ITS | Encounter Summary ---
Author Organization [employer] ([place], [place], [place], [place]) Address [address] [place] [address] Care Team Providers Care Systems Analysis Manager Name Role Phone Jay Howell MD Primary Care Provider [phone] Encounter Details Date Type Department Care Team (Late st Contact Info) Description 03/16/2021 Transcribed Document [facility] [place] [address] [place] [address] ProviderJessie MD [address] [place], [place] [address] Social History Tobacco Use Types Packs/Day Years Used Date Smoking Tobacco: Never Assessed Comments Unknown Sex and Gender Information Value Date Recorded Sex Assigned at Not on file Legal Sex Female 7:30 PM CDT Gender Identity Not on file Sexual Orientation Not on file documented as of this encounter Miscellaneous Notes * Cerner Conversion Note - Jessie ProviderMD - 03/16/2021 11:24 AM CDT [place] Suicide Severity Rating Scale (C-SSRS) Entered On: 03/16/2021 12:59 EDT Performed On: 03/16/2021 12:57 EDT by Viri Gonsales RN [place] Suicide Severity Rating Scale (C-SSRS) CSSRS Past Month Wish to be : No CSSRS Past Month Suicidal Thoughts : No CSSRS Lifetime Suicide Behavior : No Suicide Severity Rating Score : 0 Suicide Severity Rating : No Additional Care Required at this time Viri Gonsales RN - 03/16/2021 12:57 EDT Electronically signed by Gayle Finnegan Conversion Business Intelligence Developer Cerner at 02/04/2023 2:01 PM CDT documented in this encounter Plan of Treatment Not on file documented as of this encounter Visit Diagnoses Not on filedocumented in this encounter Care Teams Systems Analysis Manager Relationship Specialty Start Date End Date Jay Howell MD [address] [place] [phone] PCP - General Emergency Medicine 11/12/23 documented as of this encounter
--- OUTSIDE RECORDS SUMMARY | 2025-07-22 07:47 | XMS_ITS | Encounter Summary ---
Author Organization [employer] ([place], [place], [place], [place]) Address [address] [place] [address] Care Team Providers Care Product Developer Name Role Phone Jay Howell MD Primary Care Provider [phone] Encounter Details Date Type Department Care Team (Late st Contact Info) Description 03/17/2021 Transcribed Document [facility] [place] [address] [place] [address] ProviderJessie MD [address] [place], [place] [phone] Social History Tobacco Use Types Packs/Day Years [...] Stair training, Therapeutic exercises, Transfer training Hilton Slagado PHYSICAL THERAPIST NON-EXEMPT - 03/18/2021 12:18 EDT [facility] Goals Mobility/Bed Mobility LTG PT Grid Goal [...] filedocumented in this encounter Care Teams Product Developer Relationship Specialty Start Date End Date Jay Howell MD [address] [place] [phone] PCP - General Emergency Medicine 11/12/23 documented as of this encounter
--- OUTSIDE RECORDS SUMMARY | 2025-07-22 07:48 | XMS_ITS | Encounter Summary ---
Author Organization [employer] ([place], [place], [place], [place]) Address [address] [place] [address] Care Team Providers Care Engraver Ornamental Design Name Role Phone Jay Howell MD Primary Care Provider [phone] Encounter Details Date Type Department Care Team (Late st Contact Info) Description 06/14/2020 Transcribed Document [facility] [place] Family Medicine [address] [place] [address] ProviderJessie MD [address] [place] [address] Social History Tobacco Use Types Packs/Day Years [...] : Yes Discharge To Care Management : Home/Residential/Penitentiary or Self Care -01 JENAE COREY CSW - 06/14/2020 8:53 EDT Final Narrative Note Final Narrative Note : Pt declined services. JENAE COREY CSW - 06/14/2020 8:53 EDT Electronically signed by [facility] Conversion Issue Clerk Cerner at 02/04/2023 2:06 PM CDT documented in this encounter Plan of Treatment Not on file documented as of this encounter Visit Diagnoses Not on filedocumented in this encounter Care Teams Engraver Ornamental Design Relationship Specialty Start Date End Date Jay Howell MD [address] [place] [phone] PCP - General Emergency Medicine 11/12/23 documented as of this encounter
--- OUTSIDE RECORDS SUMMARY | 2025-07-22 07:48 | XMS_ITS | Encounter Summary ---
Author Organization [employer] ([place], [place], [place], [place]) Address [address] [place] [address] Care Team Providers Care Physical Plant Employee Name Role Phone Jay Howell MD Primary Care Provider [phone] Encounter Details Date Type Department Care Team (Late st Contact Info) Description 06/19/2020 Transcribed Document [facility] [place] [address] [place] [address] ProviderJessie MD [address] [place] [address] Social History Tobacco Use Types Packs/Day Years [...] On: 06/19/2020 12:12 EDT by Sri Kruse, Workers Compensation Adjuster Patient Resource Center Provider Status : EST [...] at ED : Other Primary Language : British [facility] [place] Comment : Patient needs follow ups with PCP and Cardiology. Appointment already scheduled with Gabirella Asencio. I called and scheduled appointment with Dr. Tara Moeller and called patient with appointment. Follow Up Needed : No Sri Kruse, Workers Compensation Adjuster - 06/19/2020 12:12 EDT Electronically signed by Sivan [facility] Conversion Chief Airline Radio Operator Cerner at 02/04/2023 2:15 PM CDT documented in this encounter Plan of Treatment Not on file documented as of this encounter Visit Diagnoses Not on filedocumented in this encounter Care Teams Physical Plant Employee Relationship Specialty Start Date End Date Jay Howell MD [address] [place] [phone] PCP - General Emergency Medicine 11/12/23 documented as of this encounter
--- OUTSIDE RECORDS SUMMARY | 2025-07-22 07:48 | XMS_ITS | Encounter Summary ---
Author Organization [employer] ([place], [place], [place], [place]) Address [address] [place] [address] Care Team Providers Care Grid Operator Name Role Phone Jay Howell MD Primary Care Provider [phone] Encounter Details Date Type Department Care Team (Late st Contact Info) Description 06/13/2020 Transcribed Document [facility] Family Medicine [address] [place] [address] ProviderJessie MD [address] [place] [address] Social History Tobacco Use Types Packs/Day Years [...] on filedocumented in this encounter Care Teams Grid Operator Relationship Specialty Start Date End Date Jay Howell MD [address] [place] [phone] PCP - General Emergency Medicine 11/12/23 documented as of this encounter
--- OUTSIDE RECORDS SUMMARY | 2025-07-22 07:48 | XMS_ITS | Encounter Summary ---
Author Organization [employer] ([place], [place], [place], [place]) Address [address] [place] [address] Care Team Providers Care Circulation Librarian Name Role Phone Jay Howell MD Primary Care Provider [phone] Encounter Details Date Type Department Care Team (Late st Contact Info) Description 06/12/2020 Transcribed Document [facility] [place] [address] [place] [address] ProviderJessie MD [address] [place] [address] Social History Tobacco Use Types Packs/Day Years [...] Years. 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 femur repair. Appendectomy (SNOMED CT 182143523). uterine suspension. Hysterectomy (SNOMED CT 705012447). back surgury. Cholecystectomy (SNOMED CT 34690236). Hip replacement (SNOMED CT 4018346667). cataract surgury., Reviewed as documented in chart. [...] EDT Height Source Stated Height Entry Format [place] Height/Length, LITHUANIAN (ft) 5 ft Height/Length LITHUANIAN 3 Inch CLINICALHEIGHT 160.02 cm [place] Body Weight 52.02 kg Weight Source, ED Critical estimated dosing weight Weight Entry Format [place] Weight Argentine lb 161 lb CLINICALWEIGHT 73.18 kg Body [...] rhythm, No ST changes, no ectopy, normal OR & QRS intervals, EP Interp. Electrocardiogram: Time 06/13/2020 00:55:00, rate 67, normal sinus rhythm, No ST changes, no ectopy, normal OR & QRS intervals, EP Interp. Results review: [...] % 34.6 % Lymph # 1.99 x10(3)/uL Mathews % 10.6 % HI Mathews # 0.61 K/uL Eos % 2.1 % [...] type: Telemetry unit, Admitting: MARIA ELENA DAVALOS [facility] . Counseled: Patient, Family, Regarding diagnosis, Regarding diagnostic results, Regarding treatment plan, Patient indicated understanding of instructions. Notes: Patient presents with hypertensive urgency and chest pain. Initial EKG and troponin negative. Blood pressure decreased after IV hydralazine, labetalol, and transdermal Nitropaste. Discussed with Dr. Davalos, hospitalist, he accepts admission for further evaluation and care.. Electronically signed by Sivan [facility] Conversion Energy Management Specialist Cerner at 02/04/2023 2:16 PM CDT documented in this encounter Plan of Treatment Not on file documented as of this encounter Visit Diagnoses Not on filedocumented in this encounter Care Teams Circulation Librarian Relationship Specialty Start Date End Date Jay Howell MD [address] [place] [phone] PCP - General Emergency Medicine 11/12/23 documented as of this encounter
--- OUTSIDE RECORDS SUMMARY | 2025-07-22 07:48 | XMS_ITS | Encounter Summary ---
Author Organization [employer] ([place], [place], [place], [place]) Address [address] [place] [address] Care Team Providers Care Radio Interference Trouble Shooter Name Role Phone Jay Howell MD Primary Care Provider [phone] Encounter Details Date Type Department Care Team (Late st Contact Info) Description 06/12/2020 Transcribed Document [facility] [place] [address] [place] [address] ProviderJessie MD [address] [place] [address] Social History Tobacco Use Types Packs/Day Years Used Date Smoking Tobacco: Never Assessed Comments Unknown Sex and Gender Information Value Date Recorded Sex Assigned at Not on file Legal Sex Female 7:30 PM CDT Gender Identity Not on file Sexual Orientation Not on file documented as of this encounter Miscellaneous Notes * Cerner Conversion Note - Jessie ProviderMD - 06/12/2020 9:23 PM CDT [place] Suicide Severity Rating Scale (C-SSRS) Entered On: 06/12/2020 22:56 EDT Performed On: 06/12/2020 22:00 EDT by NICOLE BYERS RN [place] Suicide Severity Rating Scale (C-SSRS) CSSRS Past [...] on filedocumented in this encounter Care Teams Radio Interference Trouble Shooter Relationship Specialty Start Date End Date Jay Howell MD [address] [place] [phone] PCP - General Emergency Medicine 11/12/23 documented as of this encounter
--- OUTSIDE RECORDS SUMMARY | 2025-07-22 07:48 | XMS_ITS | Encounter Summary ---
Author Organization [employer] ([place], [place], [place], [place]) Address [address] [place] [address] Care Team Providers Care Senior Controls Analyst Name Role Phone Jay Howell MD Primary Care Provider [phone] Encounter Details Date Type Department Care Team (Late st Contact Info) Description 06/13/2020 Transcribed Document [facility] [place] Family Medicine [address] [place] [address] ProviderJessie MD [address] [place] [address] Social History Tobacco Use Types Packs/Day Years [...] filedocumented in this encounter Care Teams Senior Controls Analyst Relationship Specialty Start Date End Date Jay Howell MD [address] [place] [phone] PCP - General Emergency Medicine 11/12/23 documented as of this encounter
--- OUTSIDE RECORDS SUMMARY | 2025-07-22 07:48 | XMS_ITS | Encounter Summary ---
Author Organization [employer] ([place], [place], [place], [place]) Address [address] [place] [address] Care Team Providers Care Medical Information Officer Name Role Phone Jay Howell MD Primary Care Provider [phone] Encounter Details Date Type Department Care Team (Late st Contact Info) Description 06/13/2020 Transcribed Document [facility] [place] Family Medicine [address] [place] [address] ProviderJessie MD [address] [place] [address] Social History Tobacco Use Types Packs/Day Years [...] On: 06/13/2020 10:21 EDT by FARHANA PATEL Advance Directive Patient has Advance Directive *Q : No, patient requests information about Advance Directive Patient Given Information about AD : Yes Advance Directive Comment : Discussed Living Will; Ms. Montoya requested information only; Gave copy of Personal Choices booklet; Ms. Montoya reported she would call for shredder tender peat if/when she decides to complete one FARHANA PATEL - 06/13/2020 12:16 EDT documented in this encounter Plan of Treatment Not on file documented as of this encounter Visit Diagnoses Not on filedocumented in this encounter Care Teams Medical Information Officer Relationship Specialty Start Date End Date Jay Howell MD [address] [place] [phone] PCP - General Emergency Medicine 11/12/23 documented as of this encounter
--- OUTSIDE RECORDS SUMMARY | 2025-07-22 07:48 | XMS_ITS | Encounter Summary ---
Author Organization [employer] ([place], [place], [place], [place]) Address [address] [place] [address] Care Team Providers Care Metal Patternmaker Apprentice Name Role Phone Jay Howell MD Primary Care Provider [phone] Encounter Details Date Type Department Care Team (Late st Contact Info) Description 12/21/2018 Transcribed Document [facility] [place] [address] [place] [address] ProviderJessie MD [address] [place] [address] Social History Tobacco Use Types Packs/Day Years Used Date Smoking Tobacco: Never Assessed Comments Unknown Sex and Gender Information Value Date Recorded Sex Assigned at Not on file Legal Sex Female 7:30 PM CDT Gender Identity Not on file Sexual Orientation Not on file documented as of this encounter Miscellaneous Notes * Cerner Conversion Note - Jessie Yuen MD - 12/21/2018 11:50 AM ARMOURED CAR ESCORT Patient Education Materials Follows: Groin Site Care [...] 11/05/2011 Document Revised: 12/25/2012 Document Reviewed: 11/05/2011 Patient CommunicatorCare? Patient Information ?2014 [employer]. Cardiovascular Coronary Artery Disease, Female Coronary artery [...] can cause a heart attack (myocardial infarction, [place]). CAD is a leading cause of for [...] 12/25/2012 Document Revised: 03/10/2017 Document Reviewed: 02/04/2015 [employer] Interactive Patient Education ? 2017 [employer]. Nutrition Heart-Healthy Eating Plan Introduction Heart-healthy meal [...] What foods can I eat? GrainsBreads, including Swedish, white, jie, wheat, raisin, rye, oatmeal, and Bolivian. Tortillas that are neither fried nor made with lard or trans fat. Low-fat rolls, including hotdog and hamburger buns and Saudi Arabian muffins. Biscuits. Muffins. Waffles. Pancakes. Light popcorn. [...] cottage cheese. Whole-milk cheeses, including blue (fredo), Hemphill Armand, Brie, Nate, Gibraltarian, Havarti, Gabonese, cheddar, Camembert, and [place]. Whole or 2% milk that is liquid, [...] that has suet, meat fat, or shortening. Worth butter, hydrogenated oils, palm oil, coconut oil, [...] including vitamins, herbs, eye drops, creams, and rcvb-nvq-sdxajth medicines. ??? Any problems you or family [...] 03/06/2014 Elsevier Interactive Patient Education ? 2017 [employer] Electronically signed by Abel Finnegan Conversion Senior Product Development Engineer Cerner at 02/04/2023 2:14 PM CDT documented in this encounter Plan of Treatment Not on file documented as of this encounter Visit Diagnoses Not on filedocumented in this encounter Care Teams Metal Patternmaker Apprentice Relationship Specialty Start Date End Date Jay Howell MD [address] [place] [phone] PCP - General Emergency Medicine 11/12/23 documented as of this encounter
--- OUTSIDE RECORDS SUMMARY | 2025-07-22 07:48 | XMS_ITS | Encounter Summary ---
Author Organization [employer] ([place], [place], [place], [place]) Address [address] [place] [address] Care Team Providers Care Procurement Officer Name Role Phone Jay Howell MD Primary Care Provider [phone] Encounter Details Date Type Department Care Team (Late st Contact Info) Description 06/14/2020 Transcribed Document [facility] [address] [place] [address] Cheyenne Flores MD [address] [place] [phone] Social History Tobacco Use Types Packs/Day [...] 15:07 Discharge Date 06/14/2020 Primary Care Provider TAAR CHEN (REF), -MED Discharge Diagnosis Hypertensive urgency [...] 06/13/20 16:23:00 EDT, Cardiac Diet, 60 gm carbs:[id number] george, Isolation: Standard Precautions Pending Labs Ordered PT/INR Prothrombin Time Specimen Type: Blood, Anticoagulant: Yes warfarin, AM Draw collect, 06/14/20 4:00:00 EDT, Daily, Lab Collect Electronically signed by Sivan [facility] Conversion Stamps Or Coins Salesperson Cerner at 02/04/2023 1:57 PM CDT documented in this encounter Plan of Treatment Not on file documented as of this encounter Visit Diagnoses Not on filedocumented in this encounter Care Teams Procurement Officer Relationship Specialty Start Date End Date Jay Howell MD [address] [place] [phone] PCP - General Emergency Medicine 11/12/23 documented as of this encounter
--- OUTSIDE RECORDS SUMMARY | 2025-07-22 07:48 | XMS_ITS | Encounter Summary ---
Author Organization [email or web address] ([place], [place], [place], [place]) Address [address] [place] [address] Care Team Providers Care [address] Worker Name Role Phone Jay Howell MD Primary Care Provider [phone] Encounter Details Date Type Department Care Team (Late st Contact Info) Description 06/13/2020 Transcribed Document [facility] [place] Family Medicine [address] [place] [address] ProviderJessie MD [address] [place] [address] Social History Tobacco Use Types Packs/Day Years [...] 06/13/2020 15:38 EDT Electronically signed by Sivan [facility] Conversion Cuffer Cerner at 02/04/2023 2:14 PM CDT documented in this encounter Plan of Treatment Not on file documented as of this encounter Visit Diagnoses Not on filedocumented in this encounter Care Teams Drive Worker Relationship Specialty Start Date End Date Jay Howell MD [address] [place] [phone] PCP - General Emergency Medicine 11/12/23 documented as of this encounter
--- OUTSIDE RECORDS SUMMARY | 2025-07-22 07:48 | XMS_ITS | Encounter Summary ---
Author Organization [employer] ([place], [place], [place], [place]) Address [address] [place] [address] Care Team Providers Care Ventilating Expert Name Role Phone Jay Howell MD Primary Care Provider [phone] Encounter Details Date Type Department Care Team (Late st Contact Info) Description 08/23/2020 Transcribed Document [facility] [place] Family [place] [address] [place] [address] ProviderJessie MD [address] [place] [address] Social History Tobacco Use Types Packs/Day Years Used Date Smoking Tobacco: Never Assessed Comments Unknown Sex and Gender Information Value Date Recorded Sex Assigned at Not on file Legal Sex Female 7:30 PM CDT Gender Identity Not on file Sexual Orientation Not on file documented as of this encounter Miscellaneous Notes * Cerner Conversion Note - Jessie Yuen MD - 08/23/2020 1:35 AM DATA REPORT ANALYST ED Discharge Entered On: 08/23/2020 2:08 EST [...] 08/23/2020 2:07 EST Electronically signed by Sivan, [facility] Conversion Board Certified Music Therapist Cerner at 02/04/2023 2:21 PM CDT documented in this encounter Plan of Treatment Not on file documented as of this encounter Visit Diagnoses Not on filedocumented in this encounter Care Teams Ventilating Expert Relationship Specialty Start Date End Date Jay Howell MD [address] [place] [phone] PCP - General Emergency Medicine 11/12/23 documented as of this encounter
--- OUTSIDE RECORDS SUMMARY | 2025-07-22 07:48 | XMS_ITS | Encounter Summary ---
Author Organization [employer] ([place], [place], [place], [place]) Address [address] [place] [address] Care Team Providers Care Screen Printer Helper Name Role Phone Jay Howell MD Primary Care Provider [phone] Encounter Details Date Type Department Care Team (Late st Contact Info) Description 06/13/2020 Transcribed Document [facility] [place] [address] [place] [address] ProviderJessie MD [address] [place] [address] Social History Tobacco Use Types Packs/Day Years [...] 06/13/2020 2:31 EDT Electronically signed by Sivan [facility] Conversion Label Operator Cerner at 02/04/2023 2:19 PM CDT documented in this encounter Plan of Treatment Not on file documented as of this encounter Visit Diagnoses Not on filedocumented in this encounter Care Teams Screen Printer Helper Relationship Specialty Start Date End Date Jay Howell MD [address] [place] [phone] PCP - General Emergency Medicine 11/12/23 documented as of this encounter
--- OUTSIDE RECORDS SUMMARY | 2025-07-22 07:48 | XMS_ITS | Encounter Summary ---
Author Organization [employer] ([place], [place], [place], [place]) Address [address] [place] [address] Care Team Providers Care Tag Marker Name Role Phone Jay Howell MD Primary Care Provider [phone] Encounter Details Date Type Department Care Team (Late st Contact Info) Description 12/21/2018 Transcribed Document [facility] [place] [facility] [place] [address] ProviderJessie MD [address] [place] [phone] Social History Tobacco Use Types Packs/Day Years Used Date Smoking Tobacco: Never Assessed Comments Unknown Sex and Gender Information Value Date Recorded Sex Assigned at Not on file Legal Sex Female 7:30 PM CDT Gender Identity Not on file Sexual Orientation Not on file documented as of this encounter Miscellaneous Notes * Cerner Conversion Note - Jessie Yuen MD - 12/21/2018 11:47 AM LOG POND WORKER [address] , [place], [place] [id number] Patient Copy Patient Information: Name: SKYLER MONTOYA Current Date: 12/21/2018 11:47:13 : 1940 Patient Address: [address] [place] [id number] Patient Attending Physician: FREDY YAÑEZ MD-CAR Primary Care Provider: TARA CHEN (REF), -MED Primary Care Provider Discharge Diagnosis: CAD (coronary artery disease); DM (diabetes mellitus); Exertional angina; HLD (hyperlipidemia); HTN (hypertension); Hx of CABG; DANTE (obstructive sleep apnea); Paroxysmal A-fib Weight on Admission: 158 lb, 0 oz Comment: Follow-up Instructions: With: Address: When: [facility] [address], [place] [address] Business (1) In 1 month 01/21/2019 With: Address: When: [facility] [address], [address] [place], [place] [id number] Business (1) Within 2 to 5 weeks [...] What foods can I eat? GrainsBreads, including Upper Sor[place], white, jie, wheat, raisin, rye, oatmeal, and Indian. Tortillas that are neither fried nor made with lard or trans fat. Low-fat rolls, including hotdog and hamburger buns and [place] muffins. Biscuits. Muffins. Waffles. Pancakes. Light popcorn. Whole-grain cereals. Flatbread. [place] toast. Pretzels. Breadsticks. Rusks. Low-fat snacks. Low-fat [...] cottage cheese. Whole-milk cheeses, including blue (fredo), [place], Brie, Nate, Mongolian, Havarti, Latvian, cheddar, Camembert, and Preston. Whole or 2% milk that is liquid, [...] that has suet, meat fat, or shortening. [place] butter, hydrogenated oils, palm oil, coconut oil, [...] can cause a heart attack (myocardial infarction, [place]). CAD is a leading cause of for [...] 12/25/2012 Document Revised: 03/10/2017 Document Reviewed: 02/04/2015 [employer] Interactive Patient Education ? 2017 [employer]. Groin Site Care Refer to this [...] Document Reviewed: 11/05/2011 ExitCare? Patient Information ?2013 mPATH. Angiogram An angiogram, also called angiography, is [...] including vitamins, herbs, eye drops, creams, and apzy-yvs-eopkkyc medicines. ??? Any problems you or family [...] 03/06/2014 Elsevier Interactive Patient Education ? 2017 [employer]. Medication Leaflets: valsartan (elin LILY foster) [...] valsartan; ?? if you are on a gqu-xuog-wvah; ?? if you are dehydrated; or ?? [...] may report side effects to FDA at 8-844-OSZ-6680. What other drugs will affect valsartan? Tell [...] may interact with valsartan, including prescription and hlox-dfa-hqntqso medicines, vitamins, and herbal products. Not all [...] to ensure that the information provided by [employer]. ('Multum') is accurate, up-to-date, and complete, but no guarantee is made to that effect. Drug information contained herein may be time sensitive. [employer] information has been compiled for use by healthcare practitioners and consumers in the [place] and therefore [employer] does not warrant that uses outside of the [place] are appropriate, unless specifically indicated otherwise. EPV [employer]'s drug information does not endorse drugs, diagnose patients or recommend therapy. [employer]'s drug information is an informational resource designed [...] or appropriate for any given patient. [facility] does not assume any responsibility for any aspect of healthcare administered with the aid of information [facility] provides. The information contained herein is not intended to cover all possible uses, directions, precautions, warnings, drug interactions, allergic reactions, or adverse effects. If you have questions about the drugs you are taking, check with your doctor, nurse or pharmacist. Copyright 8138-8724 [facility] SecurityExplore.To Yellow Pages. Version: 16.05. Revision Date: 09/08/2016. hydralazine (bob [...] may report side effects to FDA at 3-766-IEO-9055. What other drugs will affect hydralazine? Tell your doctor about all your current medicines and any you start or stop using, especially: ? diazoxide (an injectable blood pressure medication); or ?? an MAO inhibitor--isocarboxazid, linezolid, methylene blue injection, phenelzine, rasagiline, selegiline, tranylcypromine, and others. This list is not complete. Other drugs may interact with hydralazine, including prescription and fjcm-huo-orgsdwh medicines, vitamins, and herbal products. Not all [...] to ensure that the information provided by [employer]. ('Multum') is accurate, up-to-date, and complete, but no guarantee is made to that effect. Drug information contained herein may be time sensitive. [employer] information has been compiled for use by healthcare practitioners and consumers in the [place] and therefore [employer] does not warrant that uses outside of the [place] are appropriate, unless specifically indicated otherwise. [employer]'s drug information does not endorse drugs, diagnose patients or recommend therapy. [employer] drug information is an informational resource designed [...] effective or appropriate for any given patient. [employer] does not assume any responsibility for any aspect of healthcare administered with the aid of information [employer] provides. The information contained herein is not intended to cover all possible uses, directions, precautions, warnings, drug interactions, allergic reactions, or adverse effects. If you have questions about the drugs you are taking, check with your doctor, nurse or pharmacist. Copyright 5552-9301 [employer]. Version: 5.01. Revision Date: 10/26/2017. amlodipine (am [...] may report side effects to FDA at 4-309-IEK-6716. What other drugs will affect amlodipine? Tell your doctor about all your current medicines and any you start or stop using, especially: ? nitroglycerin; ?? simvastatin (Zocor, Simcor, Vytorin); or ?? any other heart or blood pressure medications. This list is not complete. Other drugs may interact with amlodipine, including prescription and fehm-nls-fyyrtda medicines, vitamins, and herbal products. Not all [...] to ensure that the information provided by [employer]. ('Multum') is accurate, up-to-date, and complete, but no guarantee is made to that effect. Drug information contained herein may be time sensitive. [employer]AR information has been compiled for use by healthcare practitioners and consumers in the [place] and therefore [employer] does not warrant that uses outside of the [place] are appropriate, unless specifically indicated otherwise. [employer] drug information does not endorse drugs, diagnose patients or recommend therapy. N[employer]ams drug information is an informational resource designed [...] effective or appropriate for any given patient. [employer] does not assume any responsibility for any aspect of healthcare administered with the aid of information [employer] provides. The information contained herein is not intended to cover all possible uses, directions, precautions, warnings, drug interactions, allergic reactions, or adverse effects. If you have questions about the drugs you are taking, check with your doctor, nurse or pharmacist. Copyright 7940-0941 [employer]. Version: 14.. Revision Date: 01/24/2017. clopidogrel (kloe [...] may report side effects to FDA at 4-617-SYQ-3561. What other drugs will affect clopidogrel? Certain other medicines may increase your risk of bleeding, including aspirin. Avoid taking aspirin unless your doctor tells you to. Tell your doctor about all your other medicines, especially: ? any other medicines to treat or prevent blood clots; ?? a stomach acid industrial gas servicer supervisor such as omeprazole, Nexium, or Prilosec; ?? an antidepressant; ?? an opioid medication; ?? a blood thinner--warfarin, Coumadin, Jantoven; or ?? NSAIDs (nonsteroidal anti-inflammatory drugs)--ibuprofen (Advil, Motrin), naproxen (Aleve), celecoxib, diclofenac, indomethacin, meloxicam, and others. This list is not complete. Other drugs may affect clopidogrel, including prescription and gzgk-zeo-musmkzp medicines, vitamins, and herbal products. Not all [...] to ensure that the information provided by [employer]. ('Multum') is accurate, up-to-date, and complete, but no guarantee is made to that effect. Drug information contained herein may be time sensitive. E[employer]AR information has been compiled for use by healthcare practitioners and consumers in the [place] and therefore [employer] does not warrant that uses outside of the [place] are appropriate, unless specifically indicated otherwise. E[employer] SOLAR's drug information does not endorse drugs, diagnose patients or recommend therapy. [employer]ams drug information is an informational resource designed [...] effective or appropriate for any given patient. [employer] does not assume any responsibility for any aspect of healthcare administered with the aid of information [employer] provides. The information contained herein is not intended to cover all possible uses, directions, precautions, warnings, drug interactions, allergic reactions, or adverse effects. If you have questions about the drugs you are taking, check with your doctor, nurse or pharmacist. Copyright 5840-8651 [employer]. Version: 15.01. Revision Date: 08/07/2018. ranolazine (ra [...] following drugs: ? clarithromycin; ?? nefazodone; ?? Cleona's wort; ?? antifungal medicine--itraconazole, ketoconazole; ?? HIV [...] may report side effects to FDA at 0-695-TRW-3289. What other drugs will affect ranolazine? Many [...] interact with ranolazine. This includes prescription and mbdg-lnf-rhjcrdd medicines, vitamins, and herbal products. Give a [...] to ensure that the information provided by [employer]. ('Multum') is accurate, up-to-date, and complete, but no guarantee is made to that effect. Drug information contained herein may be time sensitive. E[employer]AR information has been compiled for use by healthcare practitioners and consumers in the [place] and therefore E[employer] does not warrant that uses outside of the [place] are appropriate, unless specifically indicated otherwise. E[employer] SOLAR's drug information does not endorse drugs, diagnose patients or recommend therapy. Nafhams drug information is an informational resource designed [...] effective or appropriate for any given patient. [employer] does not assume any responsibility for any aspect of healthcare administered with the aid of information [employer] provides. The information contained herein is not intended to cover all possible uses, directions, precautions, warnings, drug interactions, allergic reactions, or adverse effects. If you have questions about the drugs you are taking, check with your doctor, nurse or pharmacist. Copyright 3916-3331 [employer]. Version: 11.. Revision Date: 12/04/2015. CIGARETTE SMOKING: The facts are clear, cigarette smoking will shorten your life. Smoking can cause many illnesses along the way. As a healthcare provider, we recommend that you stop smoking. Assistance with quitting is available by contacting 7-930-MZAN-NOW. This is a free resource providing counseling, [...] Be sure to sign up for the [employer] patient portal, which gives you 09/05 access to your medical information ??? including these discharge instructions ??? using your computer, smartphone, or tablet. Just go to Shnergle to get started. Questions? Call . [facility] would like to thank you for allowing us to assist you with your healthcare needs. MICHELE Skaggs JUDY D, (or players club representative) have received the above patient education materials/instructions and have verbalized understanding: Patient Signature _ Date/Time Patient Pet Care Associate Signature (if needed) Date/Time Clinician/Hospital Pet Care Associate Signature (if needed) Date/Time Electronically signed by [facility], [facility] Conversion Battery Starter Cerner at 02/04/2023 2:20 PM CDT documented in this encounter Plan of Treatment Not on file documented as of this encounter Visit Diagnoses Not on filedocumented in this encounter Care Teams Tag Marker Relationship Specialty Start Date End Date Jay Howell MD [address] [place] [phone] PCP - General Emergency Medicine 11/12/23 documented as of this encounter
--- OUTSIDE RECORDS SUMMARY | 2025-07-22 07:48 | XMS_ITS | Encounter Summary ---
Author Organization [employer] ([place], [place], [place], [place]) Address [address] [place] [address] Care Team Providers Care Registration Officer Name Role Phone Jay Howell MD Primary Care Provider [phone] Encounter Details Date Type Department Care Team (Late st Contact Info) Description 06/13/2020 Transcribed Document [facility] [place] [address] [place] [address] ProviderJessie MD [address] [place] [address] Social History Tobacco Use Types Packs/Day Years [...] on filedocumented in this encounter Care Teams Registration Officer Relationship Specialty Start Date End Date Jay Howell MD [address] [place] [phone] PCP - General Emergency Medicine 11/12/23 documented as of this encounter
--- OUTSIDE RECORDS SUMMARY | 2025-07-22 07:48 | XMS_ITS | Encounter Summary ---
Author Organization [facility] Address [address] [place] [address] Care Team Providers Care Lining Stuffer Name Role Phone Jay Howell MD Primary Care Provider [phone] Encounter Details Date Type Department Care Team (Late st Contact Info) Description 05/27/2025 Telephone [facility] [address] [place] [address] [facility], Physician, [address] [place], [place] [phone] Social History Tobacco Use Types Packs/Day Years [...] drink first t kathleen in the morning (EYE-CONTROL TECHNICIAN) to steady your nerves or to [...] documented as of this encounter Care Teams Lining Stuffer Relationship Specialty Start Date End Date Jay Howell MD [address] [place] [address] PCP - General 03/08/21 documented as of this encounter
--- OUTSIDE RECORDS SUMMARY | 2025-07-22 07:48 | XMS_ITS | Encounter Summary ---
Author Organization [employer] ([place], [place], [place], [place]) Address [address] [place] [address] Care Team Providers Care Cartographic Drafter Name Role Phone Jay Howell MD Primary Care Provider [phone] Encounter Details Date Type Department Care Team (Late st Contact Info) Description 06/13/2020 Transcribed Document [facility] [place] [address] [place] [address] ProviderJessie MD [address] [place] [address] Social History Tobacco Use Types Packs/Day Years [...] Problem list: Medical Arthritis / SNOMED CT 2824779 / Confirmed Atrial fibrillation with RVR / SNOMED CT 2649643558 / Confirmed Cataract / Patient Care / Confirmed Chest pain / SNOMED CT 13331193 / Complaint of COPD / SNOMED CT 79153590 / Confirmed Coronary artery disease / SNOMED CT 0569229349 / Confirmed Diabetes mellitus / SNOMED CT 473222192 / Confirmed GERD - Gastro-esophageal reflux disease / SNOMED CT 4688847168 / Confirmed Glaucoma / Patient Care / Confirmed Chronic anticoagulation / SNOMED CT 340692727 / Confirmed Hx of pulmonary embolus / SNOMED CT 110251140 / Confirmed High blood pressure / SNOMED CT 17537510 / Confirmed History of obstructive sleep apnea / IMO [id number] / Confirmed Hyperlipidemia / SNOMED CT 66444308 / Confirmed Multiple renal cysts / SNOMED CT 754786541 / Confirmed Emphysema / SNOMED CT 493614175 / Confirmed Apnea, sleep / SNOMED CT 639443289 / Confirmed Stented coronary artery / SNOMED CT 1258302102 / Confirmed UTI - Urinary tract infection / SNOMED CT 1277559299 / Confirmed, Active Problems (21) Apnea, sleep [...] and time 36mins Electronically signed by Interface, [facility] Conversion Affiliate Manager Cerner at 02/04/2023 2:21 PM CDT documented in this encounter Plan of Treatment Not on file documented as of this encounter Visit Diagnoses Not on filedocumented in this encounter Care Teams Cartographic Drafter Relationship Specialty Start Date End Date Jay Howell MD [address] [place] [phone] PCP - General Emergency Medicine 11/12/23 documented as of this encounter
--- OUTSIDE RECORDS SUMMARY | 2025-07-22 07:48 | XMS_ITS | Encounter Summary ---
Author Organization [employer] ([place], [place], [place], [place]) Address [address] [place] [address] Care Team Providers Care Medical Review Specialist Name Role Phone Jay Howell MD Primary Care Provider [phone] Encounter Details Date Type Department Care Team (Late st Contact Info) Description 03/16/2021 Transcribed Document [facility] [place] [address] [place] [address] ProviderJessie MD [address] [place], [place] [address] Social History Tobacco Use Types Packs/Day Years [...] filedocumented in this encounter Care Teams Medical Review Specialist Relationship Specialty Start Date End Date Jay Howell MD [address] [place] [phone] PCP - General Emergency Medicine 11/12/23 documented as of this encounter
--- OUTSIDE RECORDS SUMMARY | 2025-07-22 07:48 | XMS_ITS | Encounter Summary ---
Author Organization [employer] ([place], [place], [place], [place]) Address [address] [place] [address] Care Team Providers Care Retail Marketing Specialist Name Role Phone Jay Howell MD Primary Care Provider [phone] Encounter Details Date Type Department Care Team (Late st Contact Info) Description 06/14/2020 Transcribed Document [facility] [place] [address] [place] [address] ProviderJessie MD [address] [place] [address] Social History Tobacco Use Types Packs/Day Years [...] JOAO NASSAR RN - 06/14/2020 14:15 EDT documented in this encounter Plan of Treatment Not on file documented as of this encounter Visit Diagnoses Not on filedocumented in this encounter Care Teams Retail Marketing Specialist Relationship Specialty Start Date End Date Jay Howell MD [address] [place] [phone] PCP - General Emergency Medicine 11/12/23 documented as of this encounter
--- OUTSIDE RECORDS SUMMARY | 2025-07-22 07:48 | XMS_ITS | Encounter Summary ---
Author Organization [employer] ([place], [place], [place], [place]) Address [address] [place] [address] Care Team Providers Care Pals Specialist Name Role Phone Jay Howell MD Primary Care Provider [phone] Encounter Details Date Type Department Care Team (Late st Contact Info) Description 06/14/2020 Transcribed Document [facility] [place] [address] [place] [address] ProviderJessie MD [address] [place] [address] Social History Tobacco Use Types Packs/Day Years Used Date Smoking Tobacco: Never Assessed Comments Unknown Sex and Gender Information Value Date Recorded Sex Assigned at Not on file Legal Sex Female 7:30 PM CDT Gender Identity Not on file Sexual Orientation Not on file documented as of this encounter Miscellaneous Notes * Cerner Conversion Note - Jessie ProviderMD - 06/14/2020 2:00 AM CDT Application Security Architect Details Entered On: 06/14/2020 2:51 EDT Performed [...] on filedocumented in this encounter Care Teams Pals Specialist Relationship Specialty Start Date End Date Jay Howell MD [address] [place] [phone] PCP - General Emergency Medicine 11/12/23 documented as of this encounter
--- OUTSIDE RECORDS SUMMARY | 2025-07-22 07:48 | XMS_ITS | Encounter Summary ---
Author Organization [employer] ([place], [place], [place], [place]) Address [address] [place] [address] Care Team Providers Care Thermal Engineer Name Role Phone Jay Howell MD Primary Care Provider [phone] Encounter Details Date Type Department Care Team (Late st Contact Info) Description 06/14/2020 Transcribed Document [facility] [place] [address] [place] [address] ProviderJessie MD [address] [place] [address] Social History Tobacco Use Types Packs/Day Years [...] JOAO NASSAR RN - 06/14/2020 14:23 EDT Electronically signed by Sivan [facility] Conversion Health Service Coordinator Cerner at 02/04/2023 2:18 PM CDT documented in this encounter Plan of Treatment Not on file documented as of this encounter Visit Diagnoses Not on filedocumented in this encounter Care Teams Thermal Engineer Relationship Specialty Start Date End Date Jay Howell MD [address] [place] [phone] PCP - General Emergency Medicine 11/12/23 documented as of this encounter
--- OUTSIDE RECORDS SUMMARY | 2025-07-22 07:48 | XMS_ITS | Encounter Summary ---
Author Organization [employer] ([place], [place], [place], [place]) Address [address] [place] [address] Care Team Providers Care Evp Sales Name Role Phone Jay Howell MD Primary Care Provider [phone] Encounter Details Date Type Department Care Team (Late st Contact Info) Description 06/13/2020 Transcribed Document [facility] [place] [address] [place] [address] ProviderJessie MD [address] [place] [address] Social History Tobacco Use Types Packs/Day Years Used Date Smoking Tobacco: Never Assessed Comments Unknown Sex and Gender Information Value Date Recorded Sex Assigned at Not on file Legal Sex Female 7:30 PM CDT Gender Identity Not on file Sexual Orientation Not on file documented as of this encounter Miscellaneous Notes * Cerner Conversion Note - Jessie ProviderMD - 06/13/2020 11:41 AM CDT Patient: SKYLER [...] PharmD student Luis Manuel Briones PharmD, BCPS [phone] Electronically signed by [facility] Conversion Tree And Shrub Technician Cerner at 02/04/2023 2:11 PM CDT documented in this encounter Plan of Treatment Not on file documented as of this encounter Visit Diagnoses Not on filedocumented in this encounter Care Teams Evp Sales Relationship Specialty Start Date End Date Jay Howell MD [address] [place] [phone] PCP - General Emergency Medicine 11/12/23 documented as of this encounter
--- OUTSIDE RECORDS SUMMARY | 2025-07-22 07:48 | XMS_ITS | Encounter Summary ---
Author Organization [employer] ([place], [place], [place], [place]) Address [address] [place] [address] Care Team Providers Care Circle Cutting Saw Operator Name Role Phone Jay Hwoell MD Primary Care Provider [phone] Encounter Details Date Type Department Care Team (Late st Contact Info) Description 12/21/2018 Transcribed Document [facility] [place] [address] [place] [address] ProviderJessie MD [address] [place] [address] Social History Tobacco Use Types Packs/Day Years Used Date Smoking Tobacco: Never Assessed Comments Unknown Sex and Gender Information Value Date Recorded Sex Assigned at Not on file Legal Sex Female 7:30 PM CDT Gender Identity Not on file Sexual Orientation Not on file documented as of this encounter Miscellaneous Notes * Cerner Conversion Note - Jessie ProviderMD - 12/21/2018 11:46 AM AIRCRAFT MECHANIC Nursing Discharge Summary Entered On: 12/21/2018 11:46 [...] - 12/21/2018 11:46 EST Electronically signed by [facility] Conversion Microfilmer Cerner at 02/04/2023 2:08 PM CDT documented in this encounter Plan of Treatment Not on file documented as of this encounter Visit Diagnoses Not on filedocumented in this encounter Care Teams Circle Cutting Saw Operator Relationship Specialty Start Date End Date Jay Howell MD [address] [place] [phone] PCP - General Emergency Medicine 11/12/23 documented as of this encounter
--- OUTSIDE RECORDS SUMMARY | 2025-07-22 07:48 | XMS_ITS | Encounter Summary ---
Author Organization [facility] Address [address] [place] [address] Care Team Providers Care Flow Coordinator Name Role Phone Jay Howell MD Primary Care Provider Reason for Visit * Reason Onset Date Comments Returned Call 07/02/2025 Encounter Details Date Type Department Care Team (Late st Contact Info) Description 07/02/2025 Telephone [facility] [address] [place] [address] Returned Call Social History Tobacco Use Types Packs/Day Years Used Date Smoking Tobacco: Former Cigarettes - 1991 Passive Smoke Exposure: Past Smokeless [...] drink first t kathleen in the morning (EYE-UNSCRAMBLER) to steady your nerves or to get [...] Reason for Call: Sarah with [facility] in [place] called, saying that pt needs a STAT appt for a void trail. They have done 2 but she failed both of them. I explained we need a referral, but she is saying they cannot send us a referral or records until we send them a request for the referral and records. Their fax for medical records is [phone]. Please give her a call back. Thanks! Best contact number: Other: [phone] Optimal time of day to reach caller: ANYTIME Additional comments/information from caller: None Note: Please do not reply to this message. Follow-up communication and further actions as a result of this message need to be communicated with the patient directly, if the patient is not active onMyChart. If the patient is active on MyChart, they will receive notification of the communication/outcome via Envivio. documented in this encounter Plan of Treatment [...] documented as of this encounter Care Teams Flow Coordinator Relationship Specialty Start Date End Date Jay Howell MD [address] [place], [place] [address] PCP - General 03/08/21 documented as of this encounter
--- OUTSIDE RECORDS SUMMARY | 2025-07-22 07:48 | XMS_ITS | Encounter Summary ---
Author Organization [employer] ([place], [place], [place], [place]) Address [address] [place] [address] Care Team Providers Care Software Controls Engineer Name Role Phone Jay Howell MD Primary Care Provider [phone] Encounter Details Date Type Department Care Team (Late st Contact Info) Description 06/19/2020 Transcribed Document [facility] [place] [address] [place] [address] ProviderJessie MD [address] [place] [address] Social History Tobacco Use Types Packs/Day Years [...] provider. This is important. Medicines ??? Take obqf-jko-dvqlrgr and prescription medicines only as told by [...] 10/03/2006 Document Revised: 06/13/2019 Document Reviewed: 06/13/2019 [employer] Patient Education ? 2020 [employer]. Electronically signed by Gayle Finnegan Conversion Solar Photovoltaic Installer Cerner at 02/04/2023 2:17 PM CDT documented in this encounter Plan of Treatment Not on file documented as of this encounter Visit Diagnoses Not on filedocumented in this encounter Care Teams Software Controls Engineer Relationship Specialty Start Date End Date Jay Howell MD [address] [place] [phone] PCP - General Emergency Medicine 11/12/23 documented as of this encounter
--- OUTSIDE RECORDS SUMMARY | 2025-07-22 07:48 | XMS_ITS | Encounter Summary ---
Author Organization [employer] ([place], [place], [place], [place]) Address [address] [place] [address] Care Team Providers Care Certified Adapted Physical Educator Name Role Phone Jay Howell MD Primary Care Provider [phone] Encounter Details Date Type Department Care Team (Late st Contact Info) Description 06/14/2020 Transcribed Document [facility] [place] Medicine [address] [place] [address] ProviderJessie MD [address] [place] [address] Social History Tobacco Use Types [...] Yuen MD - 06/14/2020 2:41 PM CDT [facility] [place] [address] SKYLER MONTOYA :1940 Visit Time:06/13/2020 Your Visit Summary Your Care Team Admitting Physician - MARIA ELENA DAVALOS MD-[facility] Attending Physician - MARIA ELENA DAVALOS MD-[facility] Primary Care Physician - TARA CHEN [...] provider. This is important. Medicines ??? Take mktk-gvx-azmylpb and prescription medicines only as told by [...] 10/03/2006 Document Revised: 06/13/2019 Document Reviewed: 06/13/2019 [employer] Patient Education ?? 2020 [employer] Emergency Awareness and Preventative Care STROKE [...] Assistance with quitting is available by contacting 1-645-TEHW-NOW. This is a free resource providing counseling, [...] range between ( 0.0 and 7.0 ) [place] #: 0.61 K/uL -- Normal range between ( 0.16 and 1.00 ) Eos #: 0.12 x10(3)/uL -- Normal range between ( 0.00 and 0.80 ) [place] %: 10.6 % -- Normal range between [...] was given the opportunity to ask questions. Patient/Therapy Aide Name: Patient/Therapy Aide Signature: Relationship to Patient: Clinician/Hospital Therapy Aide Signature: Date: documented in this encounter Plan of Treatment Not on file documented as of this encounter Visit Diagnoses Not on filedocumented in this encounter Care Teams Certified Adapted Physical Educator Relationship Specialty Start Date End Date Jay Howell MD [address] [place] [phone] PCP - General Emergency Medicine 11/12/23 documented as of this encounter
--- OUTSIDE RECORDS SUMMARY | 2025-07-22 07:48 | XMS_ITS | Encounter Summary ---
Author Organization [employer] ([place], [place], [place], [place]) Address [address] [place] [address] Care Team Providers Care Salary Manager Name Role Phone Jay Howell MD Primary Care Provider [phone] Encounter Details Date Type Department Care Team (Late st Contact Info) Description 03/16/2021 Transcribed Document [facility] [place] [facility] [place] [address] ProviderJessie MD [address] [place] [address] Social History Tobacco Use Types Packs/Day Years [...] 03/17/2021 03:43:00 EDT HYDROmorphone,0.5mg IV Push,Left Antecubital Sajan,Pain (Severe 7-10) Pain Assessment Pain Assessment : [...] on filedocumented in this encounter Care Teams Salary Manager Relationship Specialty Start Date End Date Jay Howell MD [address] [place] [phone] PCP - General Emergency Medicine 11/12/23 documented as of this encounter
--- OUTSIDE RECORDS SUMMARY | 2025-07-22 07:48 | XMS_ITS | Encounter Summary ---
Author Organization [employer] ([place], [place], [place], [place]) Address [address] [place] [address] Care Team Providers Care Damage Adjuster Name Role Phone Jay Howell MD Primary Care Provider [phone] Encounter Details Date Type Department Care Team (Late st Contact Info) Description 06/13/2020 Transcribed Document [facility] [place] [address] [place] [address] ProviderJessie MD [address] [place] [address] Social History Tobacco Use Types Packs/Day Years [...] on RA. FSBS noted. Fall team and CHEESE PRODUCTION SUPERVISOR team notified but they were in another CHEESE PRODUCTION SUPERVISOR call. PT feels clammy and light headed [...] 06/13/2020 16:24 EDT Electronically signed by Sivan [facility] Conversion Java Developer Architect Cerner at 02/04/2023 2:04 PM CDT documented in this encounter Plan of Treatment Not on file documented as of this encounter Visit Diagnoses Not on filedocumented in this encounter Care Teams Damage Adjuster Relationship Specialty Start Date End Date Jay Howell MD [address] [place] [phone] PCP - General Emergency Medicine 11/12/23 documented as of this encounter
--- OUTSIDE RECORDS SUMMARY | 2025-07-22 07:48 | XMS_ITS | Encounter Summary ---
Author Organization [employer] ([place], [place], [place], [place]) Address [address] [place] [address] Care Team Providers Care Back Up Worker Name Role Phone Jay Howell MD Primary Care Provider [phone] Encounter Details Date Type Department Care Team (Late st Contact Info) Description 08/22/2020 Transcribed Document [facility] [place] [address] [place] [address] ProviderJessie MD [address] [place] [address] Social History Tobacco Use Types Packs/Day Years Used Date Smoking Tobacco: Never Assessed Comments Unknown Sex and Gender Information Value Date Recorded Sex Assigned at Not on file Legal Sex Female 7:30 PM CDT Gender Identity Not on file Sexual Orientation Not on file documented as of this encounter Miscellaneous Notes * Cerner Conversion Note - Jessie ProviderMD - 08/22/2020 10:42 PM ALTERATION WORKROOM SUPERVISOR Pain Assessment Entered On: 08/23/2020 1:08 EST [...] on filedocumented in this encounter Care Teams Back Up Worker Relationship Specialty Start Date End Date Jay Howell MD [address] [place] [phone] PCP - General Emergency Medicine 11/12/23 documented as of this encounter
--- OUTSIDE RECORDS SUMMARY | 2025-07-22 07:48 | XMS_ITS | Encounter Summary ---
Author Organization [employer] ([place], [place], [place], [place]) Address [address] [place] [address] Care Team Providers Care Registered Radiographer Name Role Phone Jay Howell MD Primary Care Provider [phone] Encounter Details Date Type Department Care Team (Late st Contact Info) Description 06/13/2020 Transcribed Document [facility] [place] Family Medicine [address] [place] [address] ProviderJessie MD [address] [place] [address] Social History Tobacco Use Types Packs/Day Years [...] Insurance 1 Health Plan: MEDICARE Policy Number: [id number] Authorization Number: Insurance 2 Health Plan: AARP N Policy Number: [id number] Authorization Number: Insurance Primary Name : MEDICARE Policy Number: [id number] Authorized Service Begin Date-Primary : 06/12/2020 EDT Historical Authorization Comments-Primary : No Authorization Comments Found MARILYNN RAMÍREZ, RN-Utilization Review - 06/13/2020 9:06 EDT Electronically signed by Sivan [facility] Conversion Pellet Preparation Operator Cerner at 02/04/2023 2:21 PM CDT documented in this encounter Plan of Treatment Not on file documented as of this encounter Visit Diagnoses Not on filedocumented in this encounter Care Teams Registered Radiographer Relationship Specialty Start Date End Date Jay Howell MD [address] [place] [phone] PCP - General Emergency Medicine 11/12/23 documented as of this encounter
--- OUTSIDE RECORDS SUMMARY | 2025-07-22 07:48 | XMS_ITS | Encounter Summary ---
Author Organization [employer] ([place], [place], [place], [place]) Address [address] [place] [address] Care Team Providers Care Marine Surveyor Name Role Phone Jay Howell MD Primary Care Provider [phone] Encounter Details Date Type Department Care Team (Late st Contact Info) Description 06/13/2020 Transcribed Document [facility] [place] Family Medicine [address] [place] [address] ProviderJessie MD [address] [place] [address] Social History Tobacco Use Types Packs/Day Years [...] Tobacco Cues : Verbalizes understanding Activities to [place] With Smoking Urges : Verbalizes understanding Basic [...] on filedocumented in this encounter Care Teams Marine Surveyor Relationship Specialty Start Date End Date Jay Howell MD [address] [place] [phone] PCP - General Emergency Medicine 11/12/23 documented as of this encounter
--- OUTSIDE RECORDS SUMMARY | 2025-07-22 07:48 | XMS_ITS | Encounter Summary ---
Author Organization [employer] ([place], [place], [place], [place]) Address [address] [place] [address] Care Team Providers Care Food Service Utility Worker Name Role Phone Jay Howell MD Primary Care Provider [phone] Encounter Details Date Type Department Care Team (Late st Contact Info) Description 06/13/2020 Transcribed Document [facility] [place] [address] [place] [address] ProviderJessie MD [address] [place] [address] Social History Tobacco Use Types Packs/Day Years [...] in this encounter Care Teams Food Service Utility Worker Relationship Specialty Start Date End Date Jay Howell MD [address] [place] [phone] PCP - General Emergency Medicine 11/12/23 documented as of this encounter
--- OUTSIDE RECORDS SUMMARY | 2025-07-22 07:48 | XMS_ITS | Encounter Summary ---
Author Organization [employer] ([place], [place], [place], [place]) Address [address] [place] [address] Care Team Providers Care Parts Sales Advisor Name Role Phone Jay Howell MD Primary Care Provider [phone] Encounter Details Date Type Department Care Team (Late st Contact Info) Description 06/13/2020 Transcribed Document [facility] [place] [address] [place] [address] ProviderJessie MD [address] [place] [address] Social History Tobacco Use Types Packs/Day Years [...] on filedocumented in this encounter Care Teams Parts Sales Advisor Relationship Specialty Start Date End Date Jay Howell MD [address] [place] [phone] PCP - General Emergency Medicine 11/12/23 documented as of this encounter
--- OUTSIDE RECORDS SUMMARY | 2025-07-22 07:48 | XMS_ITS | Encounter Summary ---
Author Organization [employer] ([place], [place], [place], [place]) Address [address] [place] [address] Care Team Providers Care Head Of Digital Name Role Phone Jay Howell MD Primary Care Provider [phone] Encounter Details Date Type Department Care Team (Late st Contact Info) Description 06/13/2020 Transcribed Document [facility] [place] [address] [place] [address] ProviderJessie MD [address] [place] [address] Social History Tobacco Use Types Packs/Day Years [...] Legal Guardian : Responsible adult Support Person/Patient Dermatological Surgeon : Yes Support Person/Pt Rep Name : Willard Contact Password : Marvin Support Person/Pt Rep Contact Information : [phone] Want Family/Rep/Phys Notified of Admit : No [...] Obtained From : Patient Primary Language : Nauruan Preferred Communication Mode : Verbal Communication Barrier : None Carpenter Ship Needed : No PAUL GERBER RN - [...] Scale Risk Level : 25-45 Medium Risk [place] Fall Interventions : Adequate lighting, Bed in [...] Source : Stated Height Entry Format : [place] Height, Feet : 5 ft(Converted to: 152 cm, 60 Inch) Height, Inches : 3 Inch(Converted to: 0 ft 3 Inch, 7.62 cm) Clinical Height : 160.02 cm Weight Source : Bed scale Weight Entry Format : [place] Clinical Dosing Weight : 75.32 kg Weight, Pounds : 165.7 lb Body Surface Area (BSA) : 1.79 m2 Body Mass Index : 29.4 kg/m2 ([place]) [place] Body Weight : 52 kg PAUL GERBER [...] PAUL GERBER RN - 06/13/2020 3:09 EDT [place] Suicide Severity Rating Scale (C-SSRS) CSSRS Past [...] Any Spiritual/Cultural Needs or Requests : Yes Mosque Preference : Mosque Spiritual/Cult Concerns/Desires/Needs : Prayer Spiritual/Cultural Needs Comment [...] on filedocumented in this encounter Care Teams Head Of Digital Relationship Specialty Start Date End Date Jay Howell MD [address] [place] [phone] PCP - General Emergency Medicine 11/12/23 documented as of this encounter
--- OUTSIDE RECORDS SUMMARY | 2025-07-22 07:48 | XMS_ITS | Encounter Summary ---
Author Organization [employer] ([place], [place], [place], [place]) Address [address] [place] [address] Care Team Providers Care Arrow Point Attacher Name Role Phone Jay Howell MD Primary Care Provider [phone] Encounter Details Date Type Department Care Team (Late st Contact Info) Description 06/14/2020 Transcribed Document [facility] [place] Family [place] [facility] [place] [address] ProviderJessie MD [address] [place] [address] Social History Tobacco Use Types Packs/Day Years [...] Diagnoses: None Author: FREDY YAÑEZ MD-CAR BASIC Claim Rep: None Subjective NAD Health Status Allergies: Allergic [...] list: All Problems Arthritis / SNOMED CT 4827006 / Confirmed Atrial fibrillation with RVR / SNOMED CT 2785246634 / Confirmed Blood clot / SNOMED CT 030053893 / Confirmed Cataract / Patient Care / Confirmed Chest pain / SNOMED CT 52313579 / Complaint of Clotting disorder / SNOMED CT 341005030 / Confirmed COPD / SNOMED CT 52162671 / Confirmed Coronary artery disease / SNOMED CT 1381978690 / Confirmed Diabetes mellitus / SNOMED CT 793105393 / Confirmed GERD - Gastro-esophageal reflux disease / SNOMED CT 8859336564 / Confirmed Glaucoma / Patient Care / Confirmed Chronic anticoagulation / SNOMED CT 755012068 / Confirmed Hx of pulmonary embolus / SNOMED CT 214995206 / Confirmed High blood pressure / SNOMED CT 91135640 / Confirmed History of obstructive sleep apnea / IMO 19249438 / Confirmed Hyperlipidemia / SNOMED CT 48881183 / Confirmed Multiple renal cysts / SNOMED CT 574748066 / Confirmed Emphysema / SNOMED CT 832694372 / Confirmed Apnea, sleep / SNOMED CT 545031368 / Confirmed Stented coronary artery / SNOMED CT 1894319531 / Confirmed UTI - Urinary tract infection / SNOMED CT 2538951554 / Confirmed, Active Problems (21) Apnea, sleep [...] of motion, Normal strength. Integumentary: Warm, Dry, [place]. Neurologic: Alert, Oriented. Psychiatric: Cooperative, Appropriate mood & affect. Results Review JUN 14 05:28 136 105 7 / H 114 3.6 24 0.60 \ JUN 14 05:28 \ 12.0 / 5.2 177 / 35.2 \ Cardiac Markers (Current Encounter/Past 24 Hours) No Cardiac Marker Results Found (Past 24 Hours) Radiology Results (Last 48 hours) [id number] -- 06/13/2020 15:07 CR Chest 1 Vw [...] No change from prior. No acute process. [place] IMPRESSION: Angiographically, the patient has severe three-vessel [...] w/ Dr. Garcia. Electronically signed by Sivan [facility] Conversion Supervisor Painting Cerner at 02/04/2023 2:15 PM CDT documented in this encounter Plan of Treatment Not on file documented as of this encounter Visit Diagnoses Not on filedocumented in this encounter Care Teams Arrow Point Attacher Relationship Specialty Start Date End Date Jay Howell MD [address] [place] [phone] PCP - General Emergency Medicine 11/12/23 documented as of this encounter
--- OUTSIDE RECORDS SUMMARY | 2025-07-22 07:48 | XMS_ITS | Encounter Summary ---
Author Organization [employer] ([place], [place], [place], [place]) Address [address] [place] [address] Care Team Providers Care Cloth Packer Name Role Phone Jay Howell MD Primary Care Provider [phone] Encounter Details Date Type Department Care Team (Late st Contact Info) Description 08/22/2020 Transcribed Document [facility] [place] [address] [place] [address] ProviderJessie MD [address] [place] [address] Social History Tobacco Use Types Packs/Day Years Used Date Smoking Tobacco: Never Assessed Comments Unknown Sex and Gender Information Value Date Recorded Sex Assigned at Not on file Legal Sex Female 7:30 PM CDT Gender Identity Not on file Sexual Orientation Not on file documented as of this encounter Miscellaneous Notes * Cerner Conversion Note - Historical MD Alpa - 08/22/2020 10:50 PM SATURATION DIVER Patient: SKYLER MONTOYA Age: 79 years Sex: [...] 06/13/2020 8:52 EVA LAWS RN PCI w/ [employer] stent to D1 Coronary artery bypass graft ([id number]) in 1992 at 52 Years. femur repair. Appendectomy (054181058). uterine suspension. Hysterectomy (405882336). back surgury. Cholecystectomy (22714726). Hip replacement (7793707783). cataract surgury.. Family history: Cardiomyopathy Child Stroke [...] EST Height Source Stated Height Entry Format [place] Height/Length, [place] (ft) 5 ft Height/Length [place] 3 Inch CLINICALHEIGHT 160.02 cm [place] Body Weight 52.02 kg Weight Source, ED Critical estimated dosing weight Weight Entry Format [place] Weight Bah[place]ian lb 154 lb CLINICALWEIGHT 70 kg Body [...] % 33.0 % Lymph # 2.33 x10(3)/uL [place] % 10.1 % [place] Crisp # 0.71 K/uL Eos % 2.1 % Eos # 0.15 x10(3)/uL Baso % 0.4 % Baso # 0.03 x10(3)/uL Slide Review No IG# 0.04 x10(3)/uL IG% 0.60 % . Radiology results: Left tib/fib: no fx or dl Left ankle: no fx or dl. [facility] [id number] was reviewed. Last entry 07/30/20 for norco [...] Medical Plan Condition: Improved, Stable. Prescriptions: Prescription [facility]: [place] 7.5 mg-325 mg oral tablet (Prescribe): 1 Tab, Oral, Q6H, for 3 Day(s), PRN: as needed for pain, 12 Tab, 0 Refill(s) clindamycin 300 mg oral capsule (Prescribe): 1 Cap, Oral, QID, for 7 Day(s), 28 Cap, 0 Refill(s), Prescription [facility]: Bactroban 2% topical ointment (Prescribe): 1 [...] on filedocumented in this encounter Care Teams Cloth Packer Relationship Specialty Start Date End Date Jay Howell MD [address] [place] [phone] PCP - General Emergency Medicine 11/12/23 documented as of this encounter
--- OUTSIDE RECORDS SUMMARY | 2025-07-22 07:48 | XMS_ITS | Encounter Summary ---
Author Organization [employer] ([place], [place], [place], [place]) Address [address] [place] [address] Care Team Providers Care Branch Maker Name Role Phone Jay Howell MD Primary Care Provider [phone] Encounter Details Date Type Department Care Team (Late st Contact Info) Description 08/23/2020 Transcribed Document [facility] [place] Family Medicine [address] [place] [address] ProviderJessie MD [address] [place] [address] Social History Tobacco Use Types [...] Jessie Yuen MD - 08/23/2020 1:05 AM GRAPHIC ARTS INSTRUCTOR [facility] [place], [place] [id number] SKYLER MONTOYA :1940 Visit Time:08/22/2020 Your Visit [...] SWELLING Where: [address] [place] [address]- Business (1) Allergies Macrodantin morphine (rash, rash) nitrofurantoin (blisters, blisters) Immunizations This Visit No Immunizations Found Medications What How Much When Instructions Next Dose acetaminophen-hydrocodone (Bowen 7.5 mg-325 mg oral tablet) 1 Tablet(s) [...] range between ( 0.0 and 7.0 ) Ed[place]on #: 0.71 K/uL -- Normal range between ( 0.16 and 1.00 ) Eos #: 0.15 x10(3)/uL -- Normal range between ( 0.00 and 0.80 ) [place]on %: 10.1 % -- Normal range between [...] these instructions at home: Medicines ??? Take hyys-ejy-vxswjme and prescription medicines only as told by [...] and water are not available, use hand basting marker. ??? Change your dressing and packing as [...] 12/25/2012 Document Revised: 09/03/2019 Document Reviewed: 09/03/2019 [employer] Patient Education ?? 2020 [employer] Skin Abscess A skin abscess is [...] these instructions at home: Medicines ??? Take jdif-otb-kmjtffn and prescription medicines only as told by [...] and water are not available, use hand basting marker. ??? Check your abscess every day for [...] 07/13/2006 Document Revised: 01/24/2020 Document Reviewed: 11/16/2018 [employer] Patient Education ?? 2020 [employer] Emergency Awareness and Preventative Care STROKE is [...] Assistance with quitting is available by contacting 3-399-FTWN-NOW. This is a free resource providing counseling, [...] was given the opportunity to ask questions. Patient/Paper Cutting Machine Operator Name: Patient/Paper Cutting Machine Operator Signature: Relationship to Patient: Clinician/Hospital Paper Cutting Machine Operator Signature: Please Provide a Telephone Number Where You Can Be Reached: Is it Permissible To Leave a Message? Date: documented in this encounter Plan of Treatment Not on file documented as of this encounter Visit Diagnoses Not on filedocumented in this encounter Care Teams Branch Maker Relationship Specialty Start Date End Date Jay Howell MD [address] [place] [phone] PCP - General Emergency Medicine 11/12/23 documented as of this encounter
--- OUTSIDE RECORDS SUMMARY | 2025-07-22 07:48 | XMS_ITS | Encounter Summary ---
Author Organization [employer] ([place], [place], [place], [place]) Address [address] [place] [address] Care Team Providers Care Staff Radiologist Name Role Phone Jay Howell MD Primary Care Provider [phone] Encounter Details Date Type Department Care Team (Late st Contact Info) Description 06/13/2020 Transcribed Document [facility] [place] [address] [place] [address] ProviderJessie MD [address] [place] [address] Social History Tobacco Use Types Packs/Day Years [...] Ministry Provided to : Patient, Family/Significant other Nondenominational Preference : Zoroastrianism FARHANA PATEL - 06/13/2020 12:13 EDT Interventions Advance Directive Information Provided : Yes Advance Directive Comment : Discussed Living Will; Ms. Montoya requested information only; Gave copy of Personal Choices booklet; Ms. Montoya reported she would call for records management associate if/when she decides to complete one Emotional Support : Empathic/Engaged listening, Family/Significant other supported, Feelings expressed, Information provided Spiritual and Nondenominational : Spiritual/Nondenominational support provided Change, Adjustment and Loss : [...] 06/13/2020 12:13 EDT Electronically signed by Sivan [facility] Conversion Rock [employer]ner at 02/04/2023 2:00 PM CDT documented in this encounter Plan of Treatment Not on file documented as of this encounter Visit Diagnoses Not on filedocumented in this encounter Care Teams Staff Radiologist Relationship Specialty Start Date End Date Jay Howell MD [address] [place] [phone] PCP - General Emergency Medicine 11/12/23 documented as of this encounter
--- OUTSIDE RECORDS SUMMARY | 2025-07-22 07:48 | XMS_ITS | Encounter Summary ---
Author Organization [employer] ([place], [place], [place], [place]) Address [address] [place] [address] Care Team Providers Care Professor Of Public Administration Name Role Phone Jay Howell MD Primary Care Provider [phone] Encounter Details Date Type Department Care Team (Late st Contact Info) Description 06/12/2020 Transcribed Document [facility] [place] Family Medicine [address] [place] [address] ProviderJessie MD [address] [place] [address] Social History Tobacco Use Types Packs/Day Years [...] : 2 - Emergent Tracking Group : [facility] ED Roni Peralta RN - 06/12/2020 [...] 21:35:03 EDT) Problems(Active) Apnea, sleep (SNOMED CT :550395615 ) Name of Problem: Apnea, sleep ; Recorder: JUAN LUIS GIL RN; Confirmation: Confirmed ; Classification: Medical ; Code: 118311897 ; Contributor System: PowerChart ; Last Updated: 11/12/2014 10:12 EST ; Life Cycle Date: 11/12/2014 ; Life Cycle Status: Active ; Vocabulary: SNOMED CT Arthritis (SNOMED CT :5627306 ) Name of Problem: Arthritis ; Recorder: KENYON CHAMBERS RN; Confirmation: Confirmed ; Classification: Medical ; Code: 2110113 ; Contributor System: PowerChart ; Last Updated: 04/10/2016 8:04 EDT ; Life Cycle Date: 08/13/2013 ; Life Cycle Status: Active ; Vocabulary: SNOMED CT Atrial fibrillation with RVR (SNOMED CT :2523730981 ) Name of Problem: Atrial fibrillation with RVR ; Recorder: SANG RICO APRN; Confirmation: Confirmed ; Classification: Medical ; Code: 4989196530 ; Contributor System: PowerChart ; Last Updated: 04/10/2016 8:05 EDT ; Life Cycle Date: 04/10/2016 ; Life Cycle Status: Active ; Responsible Provider: SANG RICO APRN; Vocabulary: SNOMED CT Blood clot (SNOMED CT :694964455 ) Name of Problem: Blood clot ; Recorder: KENYON CHAMBERS RN; Confirmation: Confirmed ; Classification: Patient Stated ; Code: 658021944 ; Contributor System: PowerChart ; Last Updated: [...] Vocabulary: Patient Care Chest pain (SNOMED CT :50868474 ) Name of Problem: Chest pain ; Recorder: SANG RICO APRN; Confirmation: Complaint of ; Classification: Medical ; Code: 58893980 ; Contributor System: PowerChart ; Last Updated: 04/10/2016 8:05 EDT ; Life Cycle Status: Active ; Responsible Provider: SANG RICO APRN; Vocabulary: SNOMED CT Chronic anticoagulation (SNOMED CT :699155544 ) Name of Problem: Chronic anticoagulation ; Recorder: SANG RICO APRN; Confirmation: Confirmed ; Classification: Medical ; Code: 724742358 ; Contributor System: PowerChart ; Last Updated: 04/10/2016 8:05 EDT ; Life Cycle Date: 04/10/2016 ; Life Cycle Status: Active ; Responsible Provider: SANG RICO APRN; Vocabulary: SNOMED CT Clotting disorder (SNOMED CT :583278456 ) Name of Problem: Clotting disorder ; Recorder: KENYON CHAMBERS RN; Confirmation: Confirmed ; Classification: Patient Stated ; Code: 682681149 ; Contributor System: PowerChart ; Last Updated: 03/28/2014 19:29 EDT ; Life Cycle Date: 08/13/2013 ; Life Cycle Status: Active ; Vocabulary: SNOMED CT COPD (SNOMED CT :18078489 ) Name of Problem: COPD ; Recorder: KENYON CHAMBERS RN; Confirmation: Confirmed ; Classification: Medical ; Code: 99058276 ; Contributor System: PowerChart ; Last Updated: 04/10/2016 8:03 EDT ; Life Cycle Date: 08/13/2013 ; Life Cycle Status: Active ; Vocabulary: SNOMED CT Coronary artery disease (SNOMED CT :6967481000 ) Name of Problem: Coronary artery disease ; Recorder: KENYON CHAMBERS RN; Confirmation: Confirmed ; Classification: Medical ; Code: 2037574555 ; Contributor System: PowerChart ; Last Updated: 04/10/2016 8:03 EDT ; Life Cycle Date: 08/13/2013 ; Life Cycle Status: Active ; Vocabulary: SNOMED CT Diabetes mellitus (SNOMED CT :518928495 ) Name of Problem: Diabetes mellitus ; Recorder: KENYON CHAMBERS RN; Confirmation: Confirmed ; Classification: Medical ; Code: 888801916 ; Contributor System: PowerChart ; Last Updated: 04/10/2016 8:04 EDT ; Life Cycle Date: 08/13/2013 ; Life Cycle Status: Active ; Vocabulary: SNOMED CT Emphysema (SNOMED CT :245855124 ) Name of Problem: Emphysema ; Recorder: JUAN LUIS GIL RN; Confirmation: Confirmed ; Classification: Medical ; Code: 198875731 ; Contributor System: PowerChart ; Last Updated: 11/12/2014 10:11 EST ; Life Cycle Date: 11/12/2014 ; Life Cycle Status: Active ; Vocabulary: SNOMED CT GERD - Gastro-esophageal reflux disease (SNOMED CT :3692787128 ) Name of Problem: GERD - Gastro-esophageal reflux disease ; Recorder: KENYON CHAMBERS RN; Confirmation: Confirmed ; Classification: Medical ; Code: 3953588526 ; Contributor System: PowerChart ; Last Updated: [...] Patient Care High blood pressure (SNOMED CT :85789171 ) Name of Problem: High blood pressure ; Recorder: KENYON CHAMBERS RN; Confirmation: Confirmed ; Classification: Medical ; Code: 66339384 ; Contributor System: PowerChart ; Last Updated: 04/10/2016 8:03 EDT ; Life Cycle Date: 08/13/2013 ; Life Cycle Status: Active ; Vocabulary: SNOMED CT History of obstructive sleep apnea (IMO :15858897 ) Name of Problem: History of obstructive sleep apnea ; Recorder: SYSTEM, SYSTEM; Confirmation: Confirmed ; Classification: Medical ; Code: 17620529 ; Last Updated: 12/20/2018 12:01 EST ; Life Cycle Date: 12/20/2018 ; Life Cycle Status: Active ; Vocabulary: IMO Hx of pulmonary embolus (SNOMED CT :805749901 ) Name of Problem: Hx of pulmonary embolus ; Recorder: SANG RICO APRN; Confirmation: Confirmed ; Classification: Medical ; Code: 172208672 ; Contributor System: PowerChart ; Last Updated: 04/10/2016 8:05 EDT ; Life Cycle Date: 04/10/2016 ; Life Cycle Status: Active ; Responsible Provider: SANG RICO APRN; Vocabulary: SNOMED CT Hyperlipidemia (SNOMED CT :88051103 ) Name of Problem: Hyperlipidemia ; Recorder: KENYON CHAMBERS RN; Confirmation: Confirmed ; Classification: Medical ; Code: 50302014 ; Contributor System: InfogamiChart ; Last Updated: 04/10/2016 8:03 EDT ; Life Cycle Date: 08/13/2013 ; Life Cycle Status: Active ; Vocabulary: SNOMED CT Multiple renal cysts (SNOMED CT :838195103 ) Name of Problem: Multiple renal cysts ; Recorder: KENYON CHAMBERS RN; Confirmation: Confirmed ; Classification: Medical ; Code: 230837125 ; Contributor System: PowerChart ; Last Updated: 04/10/2016 8:04 EDT ; Life Cycle Date: 08/13/2013 ; Life Cycle Status: Active ; Vocabulary: SNOMED CT Stented coronary artery (SNOMED CT :9430920616 ) Name of Problem: Stented coronary artery ; Recorder: KENYON CHAMBERS RN; Confirmation: Confirmed ; Classification: Medical ; Code: 6480958593 ; Contributor System: PowerChart ; Last Updated: 04/10/2016 8:03 EDT ; Life Cycle Date: 08/13/2013 ; Life Cycle Status: Active ; Vocabulary: SNOMED CT UTI - Urinary tract infection (SNOMED CT :6658138907 ) Name of Problem: UTI - Urinary tract infection ; Recorder: KENYON CHAMBERS RN; Confirmation: Confirmed ; Classification: Medical ; Code: 1186734205 ; Contributor System: PowerChart ; Last Updated: 04/10/2016 8:04 EDT ; Life Cycle Date: 08/13/2013 ; Life Cycle Status: Active ; Vocabulary: SNOMED CT Diagnoses(Active) Chest pain Date: 06/12/2020 ; Diagnosis Type: Reason For Visit ; Confirmation: Complaint of ; Clinical Dx: Chest pain ; Classification: Medical ; Clinical Service: Emergency medicine ; Code: PNED ; Probability: 0 ; Diagnosis Code: [id number] ED Height and Weight Height Source : Stated Height Entry Format : [place] Height, Feet : 5 ft(Converted to: 152 cm, 60 Inch) Height, Inches : 3 Inch(Converted to: 0 ft 3 Inch, 7.62 cm) Clinical Height : 160.02 cm Weight Source, ED : Critical estimated dosing weight Weight Entry Format : [place] Weight, Pounds : 161 lb Clinical Dosing Weight : 73.18 kg Body Surface Area (BSA) : 1.77 m2 Body Mass Index : 28.6 kg/m2 (HI) [place] Body Weight (IBW) : 52.02 kg Roni Peralta RN - 06/12/2020 21:31 EDT documented in this encounter Plan of Treatment Not on file documented as of this encounter Visit Diagnoses Not on filedocumented in this encounter Care Teams Professor Of Public Administration Relationship Specialty Start Date End Date Jay Howell MD [address] [place] [phone] PCP - General Emergency Medicine 11/12/23 documented as of this encounter
--- OUTSIDE RECORDS SUMMARY | 2025-07-22 07:48 | XMS_ITS | Encounter Summary ---
Author Organization [employer] ([place], [place], [place], [place]) Address [address] [place] [address] Care Team Providers Care Manager User Experience Name Role Phone Jay Howell MD Primary Care Provider [phone] Encounter Details Date Type Department Care Team (Late st Contact Info) Description 08/22/2020 Transcribed Document [facility] [place] Family Medicine [address] [place] [address] ProviderJessie MD [address] [place] [address] Social History Tobacco Use Types Packs/Day Years Used Date Smoking Tobacco: Never Assessed Comments Unknown Sex and Gender Information Value Date Recorded Sex Assigned at Not on file Legal Sex Female 7:30 PM CDT Gender Identity Not on file Sexual Orientation Not on file documented as of this encounter Miscellaneous Notes * [employer]ner Conversion Note - Historical ProviderMD - 08/22/2020 8:49 PM RAILROAD TRACK MECHANIC [place] Suicide Severity Rating Scale (C-SSRS) Entered On: 08/22/2020 23:10 EST Performed On: 08/22/2020 23:10 EST by Noy Miguel Paramedic [place] Suicide Severity Rating Scale (C-SSRS) CSSRS Past Month Wish to be : No CSSRS Past Month Suicidal Thoughts : No CSSRS Lifetime Suicide Behavior : No Suicide Severity Rating Score : 0 Suicide Severity Rating : No Additional Care Required at this time Thoughts of Harming/Killing Others : No Noy Miguel Paramedic - 08/22/2020 23:10 EST Electronically signed by Sivan, [facility] Conversion Pillowcase Sewer Cerner at 02/04/2023 2:06 PM CDT documented in this encounter Plan of Treatment Not on file documented as of this encounter Visit Diagnoses Not on filedocumented in this encounter Care Teams Manager User Experience Relationship Specialty Start Date End Date Jay Howell MD [address] [place] [phone] PCP - General Emergency Medicine 11/12/23 documented as of this encounter
--- OUTSIDE RECORDS SUMMARY | 2025-07-22 07:48 | XMS_ITS | Encounter Summary ---
Author Organization [employer] ([place], [place], [place], [place]) Address [address] [place] [address] Care Team Providers Care High School Home Economics Teacher Name Role Phone Jay Howell MD Primary Care Provider [phone] Encounter Details Date Type Department Care Team (Late st Contact Info) Description 08/23/2020 Transcribed Document [facility] [place] Family Medicine [address] [place] [address] ProviderJessie MD [address] [place] [address] Social History Tobacco Use Types Packs/Day Years Used Date Smoking Tobacco: Never Assessed Comments Unknown Sex and Gender Information Value Date Recorded Sex Assigned at Not on file Legal Sex Female 7:30 PM CDT Gender Identity Not on file Sexual Orientation Not on file documented as of this encounter Miscellaneous Notes * Cerner Conversion Note - Historical ProviderMD - 08/23/2020 1:04 AM SHANK TAPER Electronically signed by [facility] Conversion Typesetter Apprentice Cerner at 02/04/2023 1:59 PM CDT documented in this encounter Plan of Treatment Not on file documented as of this encounter Visit Diagnoses Not on filedocumented in this encounter Care Teams High School Home Economics Teacher Relationship Specialty Start Date End Date Jay Howell MD [address] [place] [phone] PCP - General Emergency Medicine 11/12/23 documented as of this encounter
--- OUTSIDE RECORDS SUMMARY | 2025-07-22 07:48 | XMS_ITS | Encounter Summary ---
Author Organization [employer] ([place], [place], [place], [place]) Address [address] [place] [address] Care Team Providers Care Center Hole Reamer Name Role Phone Jay Howell MD Primary Care Provider [phone] Encounter Details Date Type Department Care Team (Late st Contact Info) Description 08/22/2020 Transcribed Document [facility] [place] [address] [place] [address] ProviderJessie MD [address] [place] [address] Social History Tobacco Use Types Packs/Day Years Used Date Smoking Tobacco: Never Assessed Comments Unknown Sex and Gender Information Value Date Recorded Sex Assigned at Not on file Legal Sex Female 7:30 PM CDT Gender Identity Not on file Sexual Orientation Not on file documented as of this encounter Miscellaneous Notes * Cerner Conversion Note - Historical ProviderMD - 08/22/2020 8:49 PM PLATE DRILLER [place] Violence Assessment Entered On: 08/22/2020 23:10 EST Performed On: 08/22/2020 23:10 EST by Noy Miguel Nurse Aide Evaluator [place] Violence Assessment [place] Violence Checklist of Symptoms : None Bro[place] Violence Symptoms Subtotal : 0 [place] Violence Symptoms Indicator : Low risk (0) Noy Miguel Paramedic - 08/22/2020 23:10 EST Electronically signed by Sivan [facility] Conversion Feed Preparation Operator Cerner at 02/04/2023 1:55 PM CDT documented in this encounter Plan of Treatment Not on file documented as of this encounter Visit Diagnoses Not on filedocumented in this encounter Care Teams Center Hole Reamer Relationship Specialty Start Date End Date Jay Howell MD [address] [place] [phone] PCP - General Emergency Medicine 11/12/23 documented as of this encounter
--- OUTSIDE RECORDS SUMMARY | 2025-07-22 07:48 | XMS_ITS | Encounter Summary ---
Author Organization [employer] ([place], [place], [place], [place]) Address [address] [place] [address] Care Team Providers Care Public Health Policy Analyst Name Role Phone Jay Howell MD Primary Care Provider [phone] Encounter Details Date Type Department Care Team (Late st Contact Info) Description 06/13/2020 Transcribed Document [facility] [place] [address] [place] [address] ProviderJessie MD [address] [place] [address] Social History Tobacco Use Types Packs/Day Years [...] 06/13/2020 9:00 EDT by Joya Amaya [facility] Phone Call for Consults Consult Phone Call/Page Attempt : First call Consult Reason : chest pain Physician Requesting Consult : SMILEY ZAMORA MD Physician Requested for Consult : FREDY YAÑEZ MD-CAR Provider Service Notified Name : Cardiology Physician Covering for Consult : FREDY YAÑEZ MD-CAR Date and Time Call Returned : 06/13/2020 9:31 EDT Joya Amaya [facility] - 06/13/2020 10:00 EDT documented in this encounter Plan of Treatment Not on file documented as of this encounter Visit Diagnoses Not on filedocumented in this encounter Care Teams Public Health Policy Analyst Relationship Specialty Start Date End Date Jay Howell MD [address] [place] [phone] PCP - General Emergency Medicine 11/12/23 documented as of this encounter
--- OUTSIDE RECORDS SUMMARY | 2025-07-22 07:48 | XMS_ITS | Encounter Summary ---
Author Organization [employer] ([place], [place], [place], [place]) Address [address] [place] [address] Care Team Providers Care Datawarehouse Developer Name Role Phone Jay Howell MD Primary Care Provider [phone] Encounter Details Date Type Department Care Team (Late st Contact Info) Description 06/14/2020 Transcribed Document [facility] [place] Family Medicine [address] [place] [address] ProviderJessie MD [address] [place] [address] Social History Tobacco Use Types Packs/Day Years [...] EDT Performed On: 06/14/2020 5:00 EDT by APUL GERBER RN Chart Check Powerplans Initiated/Discontinued as Appropriate : Yes All Active Orders Reviewed : Yes PAUL GERBER RN - 06/14/2020 6:24 EDT Electronically signed by Sivan [facility] Conversion Nibbler Operator Cerner at 02/04/2023 2:11 PM CDT documented in this encounter Plan of Treatment Not on file documented as of this encounter Visit Diagnoses Not on filedocumented in this encounter Care Teams Datawarehouse Developer Relationship Specialty Start Date End Date Jay Howell MD [address] [place] [phone] PCP - General Emergency Medicine 11/12/23 documented as of this encounter
--- OUTSIDE RECORDS SUMMARY | 2025-07-22 07:48 | XMS_ITS | Encounter Summary ---
Author Organization [employer] ([place], [place], [place], [place]) Address [address] [place] [address] Care Team Providers Care Cold Working Supervisor Name Role Phone Jay Howell MD Primary Care Provider [phone] Encounter Details Date Type Department Care Team (Late st Contact Info) Description 03/04/2021 Transcribed Document [facility] [place] Family Medicine [address] [place] [address] ProviderJessie MD [address] [place] [id number] Social History Tobacco Use Types Packs/Day Years [...] on filedocumented in this encounter Care Teams Cold Working Supervisor Relationship Specialty Start Date End Date Jay Howell MD [address] [place] [phone] PCP - General Emergency Medicine 11/12/23 documented as of this encounter
--- OUTSIDE RECORDS SUMMARY | 2025-07-22 07:48 | XMS_ITS | Encounter Summary ---
Author Organization [employer] ([place], [place], [place], [place]) Address [address] [place] [address] Care Team Providers Care Customer Support Specialist Name Role Phone Jay Howell MD Primary Care Provider [phone] Encounter Details Date Type Department Care Team (Late st Contact Info) Description 08/22/2020 Transcribed Document [facility] [place] Family Medicine [address] [place] [address] ProviderJessie MD [address] [place] [address] Social History Tobacco Use Types Packs/Day Years Used Date Smoking Tobacco: Never Assessed Comments Unknown Sex and Gender Information Value Date Recorded Sex Assigned at Not on file Legal Sex Female 7:30 PM CDT Gender Identity Not on file Sexual Orientation Not on file documented as of this encounter Miscellaneous Notes * Cerner Conversion Note - Jessie Yuen MD - 08/22/2020 8:49 PM ROOFING SALES REPRESENTATIVE ED Triage Entered On: 08/22/2020 20:57 EST [...] : 3 - Urgent Tracking Group : [facility] ED LUCINDA FOFANA RN - 08/22/2020 20:52 [...] 20:57:39 EST) Problems(Active) Apnea, sleep (SNOMED CT :207383240 ) Name of Problem: Apnea, sleep ; Recorder: JUAN LUIS GIL RN; Confirmation: Confirmed ; Classification: Medical ; Code: [id number] ; Contributor System: PowerChart ; Last Updated: 11/12/2014 10:12 EST ; Life Cycle Date: 11/12/2014 ; Life Cycle Status: Active ; Vocabulary: SNOMED CT Arthritis (SNOMED CT :4533115 ) Name of Problem: Arthritis ; Recorder: KENYON CHAMBERS RN; Confirmation: Confirmed ; Classification: Medical ; Code: 4533776 ; Contributor System: PowerChart ; Last Updated: 04/10/2016 8:04 EDT ; Life Cycle Date: 08/13/2013 ; Life Cycle Status: Active ; Vocabulary: SNOMED CT Atrial fibrillation with RVR (SNOMED CT :2639024546 ) Name of Problem: Atrial fibrillation with RVR ; Recorder: SANG RICO APRN; Confirmation: Confirmed ; Classification: Medical ; Code: [id number] ; Contributor System: PowerChart ; Last Updated: 04/10/2016 8:05 EDT ; Life Cycle Date: 04/10/2016 ; Life Cycle Status: Active ; Responsible Provider: SANG RICO APRN; Vocabulary: SNOMED CT Blood clot (SNOMED CT :613922391 ) Name of Problem: Blood clot ; Recorder: KENYON CHAMBERS RN; Confirmation: Confirmed ; Classification: Patient Stated ; Code: 127560648 ; Contributor System: PowerChart ; Last Updated: [...] Vocabulary: Patient Care Chest pain (SNOMED CT :47817817 ) Name of Problem: Chest pain ; Recorder: SANG RICO APRN; Confirmation: Complaint of ; Classification: Medical ; Code: 35263250 ; Contributor System: PowerChart ; Last Updated: 04/10/2016 8:05 EDT ; Life Cycle Status: Active ; Responsible Provider: SANG RICO APRN; Vocabulary: SNOMED CT Chronic anticoagulation (SNOMED CT :696674276 ) Name of Problem: Chronic anticoagulation ; Recorder: SANG RICO APRN; Confirmation: Confirmed ; Classification: Medical ; Code: 651549285 ; Contributor System: PowerChart ; Last Updated: 04/10/2016 8:05 EDT ; Life Cycle Date: 04/10/2016 ; Life Cycle Status: Active ; Responsible Provider: SANG RICO APRN; Vocabulary: SNOMED CT Clotting disorder (SNOMED CT :481363116 ) Name of Problem: Clotting disorder ; Recorder: KENYON CHAMBERS RN; Confirmation: Confirmed ; Classification: Patient Stated ; Code: 096611389 ; Contributor System: PowerChart ; Last Updated: 03/28/2014 19:29 EDT ; Life Cycle Date: 08/13/2013 ; Life Cycle Status: Active ; Vocabulary: SNOMED CT COPD (SNOMED CT :63998556 ) Name of Problem: COPD ; Recorder: KENYON CHAMBERS RN; Confirmation: Confirmed ; Classification: Medical ; Code: 27009998 ; Contributor System: hopscoutChart ; Last Updated: 04/10/2016 8:03 EDT ; Life Cycle Date: 08/13/2013 ; Life Cycle Status: Active ; Vocabulary: SNOMED CT Coronary artery disease (SNOMED CT :2036263908 ) Name of Problem: Coronary artery disease ; Recorder: KENYON CHAMBERS RN; Confirmation: Confirmed ; Classification: Medical ; Code: 9217041167 ; Contributor System: PowerChart ; Last Updated: 04/10/2016 8:03 EDT ; Life Cycle Date: 08/13/2013 ; Life Cycle Status: Active ; Vocabulary: SNOMED CT Diabetes mellitus (SNOMED CT :449584460 ) Name of Problem: Diabetes mellitus ; Recorder: KENYON CHAMBERS RN; Confirmation: Confirmed ; Classification: Medical ; Code: 427839351 ; Contributor System: PowerChart ; Last Updated: 04/10/2016 8:04 EDT ; Life Cycle Date: 08/13/2013 ; Life Cycle Status: Active ; Vocabulary: SNOMED CT Emphysema (SNOMED CT :666249114 ) Name of Problem: Emphysema ; Recorder: JUAN LUIS GIL RN; Confirmation: Confirmed ; Classification: Medical ; Code: 039347238 ; Contributor System: PowerChart ; Last Updated: 11/12/2014 10:11 EST ; Life Cycle Date: 11/12/2014 ; Life Cycle Status: Active ; Vocabulary: SNOMED CT GERD - Gastro-esophageal reflux disease (SNOMED CT :9030641339 ) Name of Problem: GERD - Gastro-esophageal reflux disease ; Recorder: KENYON CHAMBERS RN; Confirmation: Confirmed ; Classification: Medical ; Code: 3908542891 ; Contributor System: hopscoutChart ; Last Updated: 04/10/2016 8:03 EDT ; [...] Patient Care High blood pressure (SNOMED CT :49262511 ) Name of Problem: High blood pressure ; Recorder: KENYON CHAMBERS RN; Confirmation: Confirmed ; Classification: Medical ; Code: 27053589 ; Contributor System: PowerChart ; Last Updated: 04/10/2016 8:03 EDT ; Life Cycle Date: 08/13/2013 ; Life Cycle Status: Active ; Vocabulary: SNOMED CT History of obstructive sleep apnea (IMO :21296993 ) Name of Problem: History of obstructive sleep apnea ; Recorder: SYSTEM, SYSTEM; Confirmation: Confirmed ; Classification: Medical ; Code: 83080272 ; Last Updated: 12/20/2018 12:01 EST ; Life Cycle Date: 12/20/2018 ; Life Cycle Status: Active ; Vocabulary: IMO Hx of pulmonary embolus (SNOMED CT :687761407 ) Name of Problem: Hx of pulmonary embolus ; Recorder: SANG RICO APRN; Confirmation: Confirmed ; Classification: Medical ; Code: 388276651 ; Contributor System: hopscoutChart ; Last Updated: 04/10/2016 8:05 EDT ; Life Cycle Date: 04/10/2016 ; Life Cycle Status: Active ; Responsible Provider: SANG RICO APRN; Vocabulary: SNOMED CT Hyperlipidemia (SNOMED CT :58030746 ) Name of Problem: Hyperlipidemia ; Recorder: KENYON CHAMBERS RN; Confirmation: Confirmed ; Classification: Medical ; Code: 02602330 ; Contributor System: hopscoutChart ; Last Updated: 04/10/2016 8:03 EDT ; Life Cycle Date: 08/13/2013 ; Life Cycle Status: Active ; Vocabulary: SNOMED CT Multiple renal cysts (SNOMED CT :746965386 ) Name of Problem: Multiple renal cysts ; Recorder: KENYON CHAMBERS RN; Confirmation: Confirmed ; Classification: Medical ; Code: 476677979 ; Contributor System: hopscoutChart ; Last Updated: 04/10/2016 8:04 EDT ; Life Cycle Date: 08/13/2013 ; Life Cycle Status: Active ; Vocabulary: SNOMED CT Stented coronary artery (SNOMED CT :3778444036 ) Name of Problem: Stented coronary artery ; Recorder: KENYON CHAMBERS RN; Confirmation: Confirmed ; Classification: Medical ; Code: 3607567832 ; Contributor System: hopscoutChart ; Last Updated: 04/10/2016 8:03 EDT ; Life Cycle Date: 08/13/2013 ; Life Cycle Status: Active ; Vocabulary: SNOMED CT UTI - Urinary tract infection (SNOMED CT :5822559518 ) Name of Problem: UTI - Urinary tract infection ; Recorder: KENYON CHAMBERS RN; Confirmation: Confirmed ; Classification: Medical ; Code: 0518646056 ; Contributor System: hopscoutChart ; Last Updated: 04/10/2016 8:04 EDT ; Life Cycle Date: 08/13/2013 ; Life Cycle Status: Active ; Vocabulary: SNOMED CT Diagnoses(Active) Leg pain-swelling Date: 08/22/2020 ; Diagnosis Type: Reason For Visit ; Confirmation: Complaint of ; Clinical Dx: Leg pain-swelling ; Classification: Medical ; Clinical Service: Emergency medicine ; Code: PNED ; Probability: 0 ; Diagnosis Code: [id number] ED Height and Weight Height Source : Stated Height Entry Format : [place] Height, Feet : 5 ft(Converted to: 152 cm, 60 Inch) Height, Inches : 3 Inch(Converted to: 0 ft 3 Inch, 7.62 cm) Clinical Height : 160.02 cm Weight Source, ED : Critical estimated dosing weight Weight Entry Format : [place] Weight, Pounds : 154 lb Clinical Dosing Weight : 70 kg Body Surface Area (BSA) : 1.73 m2 Body Mass Index : 27.3 kg/m2 (HI) [place] Body Weight (IBW) : 52.02 kg LUCINDA FOFANA RN - 08/22/2020 20:52 EST Electronically signed by [facility], [facility] Conversion Paper Handler Cerner at 02/04/2023 2:09 PM CDT documented in this encounter Plan of Treatment Not on file documented as of this encounter Visit Diagnoses Not on filedocumented in this encounter Care Teams Customer Support Specialist Relationship Specialty Start Date End Date Jay Howell MD [address] [place] [phone] PCP - General Emergency Medicine 11/12/23 documented as of this encounter
--- OUTSIDE RECORDS SUMMARY | 2025-07-22 07:48 | XMS_ITS | Encounter Summary ---
Author Organization [employer] ([place], [place], [place], [place]) Address [address] [place] [address] Care Team Providers Care Librarian Head Name Role Phone Jay Howell MD Primary Care Provider [phone] Encounter Details Date Type Department Care Team (Late st Contact Info) Description 06/13/2020 Transcribed Document [facility] [place] Family Medicine [address] [place] [address] ProviderJessie MD [address] [place] [address] Social History Tobacco Use Types Packs/Day Years [...] On: 06/13/2020 13:24 EDT by JEFE SHELTON, Automation Technologist-Inside Contractor Sales Initial Assessment I Previously Documented Living Environment [...] Listed? : Yes Medical Durable Power of Centrifugal Supervisor Name : No JEFE SHELTON Automation Technologist-Inside Contractor Sales - 06/13/2020 13:24 EDT Initial Assessment II Sensory and Motor Deficits : Weakness Current Home Treatments and Equipment : CPAP, Walker JEFE SHELTON Automation Technologist-Inside Contractor Sales - 06/13/2020 13:24 EDT Discharge Needs I Anticipated Discharge To, CM : Home with home health Current Home Treatment/Equipment : Current Home Treatment/Equipment No qualifying data available. Post Acute/Home Treatments : None Documentation Status Complete : Yes JEFE SHELTON Social Worker-Inside Contractor Sales - 06/13/2020 13:24 EDT Discharge Needs II Professional Skilled Services : Professional Skilled Services No qualifying data available. Needs Assistance with Transportation : No Discharge Options Discussed with Patient : Acute rehabilitation, Discharge transportation, DME, Home Health, Short term rehabilitation JEFE SHELTON Automation Technologist-Inside Contractor Sales - 06/13/2020 13:24 EDT Narrative Note Narrative Note : Patient is a low readmission risk of 38. Patient reported that she had HH in 2008 after a hip replacement. Patient stated that she has also been inpatient at [facility]. Patient reported that she is ADL independent but uses a walker when she walks around the park. Patient reported that she has transportation home. She denied having any discharge needs. Cm will continue to follow. JEFE SHELTON Automation Technologist-Inside Contractor Sales - 06/13/2020 13:24 EDT documented in this encounter Plan of Treatment Not on file documented as of this encounter Visit Diagnoses Not on filedocumented in this encounter Care Teams Librarian Head Relationship Specialty Start Date End Date Jay Howell MD [address] [place] [phone] PCP - General Emergency Medicine 11/12/23 documented as of this encounter
--- OUTSIDE RECORDS SUMMARY | 2025-07-22 07:48 | XMS_ITS | Encounter Summary ---
Author Organization [employer] ([place], [place], [place], [place]) Address [address] [place] [address] Care Team Providers Care Gamb Cutter Name Role Phone Jay Howell MD Primary Care Provider [phone] Encounter Details Date Type Department Care Team (Late st Contact Info) Description 06/12/2020 Transcribed Document [facility] [place] [address] [place] [address] ProviderJessie MD [address] [place] [address] Social History Tobacco Use Types Packs/Day Years [...] Communication Barrier : None Primary Language : Bhutanese Any Spiritual/Cultural Needs or Requests : No [...] EDT Pain Scale Intensity : 10 NICOLE BYERS RN - 06/12/2020 22:47 EDT Image 4 - Images currently included in the form version of this document have not been included in the text rendition version of the form. documented in this encounter Plan of Treatment Not on file documented as of this encounter Visit Diagnoses Not on filedocumented in this encounter Care Teams Gamb Cutter Relationship Specialty Start Date End Date Jay Howell MD [address] [place] [phone] PCP - General Emergency Medicine 11/12/23 documented as of this encounter
--- OUTSIDE RECORDS SUMMARY | 2025-07-22 07:48 | XMS_ITS | Encounter Summary ---
Author Organization [employer] ([place], [place], [place], [place]) Address [address] [place] [address] Care Team Providers Care Maintenance Custodian Name Role Phone Jay Howell MD Primary Care Provider [phone] Encounter Details Date Type Department Care Team (Late st Contact Info) Description 06/13/[address] [facility] [place] Family Medicine [address] [place] [address] ProviderJessie MD [address] [place] [address] Social History Tobacco Use Types Packs/Day Years [...] PAUL GERBER RN - 06/13/2020 6:12 EDT documented in this encounter Plan of Treatment Not on file documented as of this encounter Visit Diagnoses Not on filedocumented in this encounter Care Teams Maintenance Custodian Relationship Specialty Start Date End Date Jay Howell MD [address] [place] [phone] PCP - General Emergency Medicine 11/12/23 documented as of this encounter
--- OUTSIDE RECORDS SUMMARY | 2025-07-22 07:48 | XMS_ITS | Encounter Summary ---
Author Organization [employer] ([place], [place], [place], [place]) Address [address] [place] [address] Care Team Providers Care Assembly Leader Name Role Phone Jay Howell MD Primary Care Provider [phone] Encounter Details Date Type Department Care Team (Late st Contact Info) Description 06/13/2020 Transcribed Document [facility] [place] Family Medicine [address] [place] [address] ProviderJessie MD [address] [place] [address] Social History Tobacco Use Types Packs/Day Years [...] MD-CAR Basic Information PCP: Avtar Moeller MD Dividing Machine Operator Helper: Stephania Garcia MD Chief Complaint Chest pain History of Present Illness 79 year old female with history of CAD s/p CABG (1992) and subsequent stents in 2007 [id number], Paroxysmal atrial fibrillation and prior PE on [...] mg tab 2 mg 1 Tab, Oral, [facility] mg tab 3 mg 1 [...] History: Active Cataract Glaucoma Coronary artery disease (8467475772) Stented coronary artery (2942546128) High blood pressure (16292134) Hyperlipidemia (91945018) COPD (99594754) GERD - Gastro-esophageal reflux disease (8894616399) Multiple renal cysts (399104399) UTI - Urinary tract infection (7420030203) Arthritis (6255867) Diabetes mellitus (378372744) Emphysema (250773219) Apnea, sleep (037925997) Hx of pulmonary embolus (355901565) Chronic anticoagulation (997975012) Atrial fibrillation with RVR (2817415608) Family History: Cardiomyopathy Child Stroke Brother Heart attack Brother Sister Leukemia Child Cancer Father Mother Sister Coronary heart disease Child Procedure history: Cardiac Stent in 2010 at 70 Years. Coronary artery bypass graft (762552706) in 1992 at 52 Years. femur repair. Appendectomy (713692329). uterine suspension. Hysterectomy (935811557). back surgury. Cholecystectomy (64150432). Hip replacement (2242498661). cataract surgury. Physical Examination VS/Measurements Vitals Signs [...] of motion, Normal strength. Integumentary: Warm, Dry, [place]. Neurologic: Alert, Oriented. Psychiatric: Cooperative, Appropriate mood [...] 24 Hours) Radiology Results (Last 48 hours) [id number] -- 06/12/2020 23:54 CR Chest 1 Vw [...] and dictated by Dr. Patrice Eaton.Transcribed by rPicila Hernández PA-C. Results review: Labs (Last four [...] <0.015 (JUN 13) <0.015 (JUN 12) . [facility] IMPRESSION: Angiographically, the patient has [...] on filedocumented in this encounter Care Teams Assembly Leader Relationship Specialty Start Date End Date Jay Howell MD [address] [place] [phone] PCP - General Emergency Medicine 11/12/23 documented as of this encounter
--- OUTSIDE RECORDS SUMMARY | 2025-07-22 07:48 | XMS_ITS | Encounter Summary ---
Author Organization [employer] ([place], [place], [place], [place]) Address [address] [place] [address] Care Team Providers Care Program Director Cable Television Name Role Phone Jay Howell MD Primary Care Provider [phone] Encounter Details Date Type Department Care Team (Late st Contact Info) Description 06/13/2020 Transcribed Document [facility] [place] Family Medicine [address] [place] [address] ProviderJessie MD [address] [place] [address] Social History Tobacco Use Types Packs/Day Years [...] PAUL GERBER RN - 06/13/2020 3:34 EDT Electronically signed by Gayle Finnegan Conversion Home Health Clinical Supervisor Cerner at 02/04/2023 1:59 PM CDT documented in this encounter Plan of Treatment Not on file documented as of this encounter Visit Diagnoses Not on filedocumented in this encounter Care Teams Program Director Cable Television Relationship Specialty Start Date End Date Sokan, Jay O, MD [address] [place] [phone] PCP - General Emergency Medicine 11/12/23 documented as of this encounter
--- OUTSIDE RECORDS SUMMARY | 2025-07-22 07:48 | XMS_ITS | Encounter Summary ---
Author Organization [employer] ([place], [place], [place], [place]) Address [address] [place] [address] Care Team Providers Care Door Opener Name Role Phone Jay Howell MD Primary Care Provider [phone] Encounter Details Date Type Department Care Team (Late st Contact Info) Description 03/16/2021 Transcribed Document [facility] [place] Family Medicine [address] [place] [address] ProviderJessie MD [address] [place] [address] Social History Tobacco Use Types Packs/Day Years [...] EDT - EVA WESLEY RN PCI w/ [place] stent to D1 Coronary artery bypass graft (228356203) in 1992 at 52 Years. femur repair. Appendectomy (694962618). uterine suspension. Hysterectomy (790637729). back surgury. Cholecystectomy (60959735). Hip replacement (2408808001). cataract surgury.. Family history: Cardiomyopathy Child Stroke [...] EDT Height Source Stated Height Entry Format [place] Height/Length, LIBERIAN (ft) 5 ft Height/Length LIBERIAN 3 Inch CLINICALHEIGHT 160.02 cm [place] Body Weight 52.02 kg Weight Source, ED Critical estimated dosing weight Weight Entry Format [place] Weight Taj[place] lb 158 lb CLINICALWEIGHT 71.82 kg Body [...] Triage: ED C-SSRS: ED Clinical Reconciliation: ED hog scalder: Lactic Acid Level with Reflex if Indicated: Lipase Level: Normal Saline Bolus: 500 mL, 500 mL/Hr, IV Piggyback, 1-Time PT/INR Prothrombin Time: PTT: Saline Lock Insert: Troponin I Ultra: Urinalysis UA Rflx Microscopic Cult if Ind: Zofran: 4 mg, IV Push, 1-Time. playground monitor: Normal sinus rhythm. Electrocardiogram: Time 03/16/2021 11:38:00, rate 59, normal sinus rhythm, No ST changes, no ectopy, normal MD & QRS intervals, EP Interp. Results review: All Results 03/16/2021 14:09 EDT Urine Type. U CleanCatch Urine Color Yellow Urine Appearance Clear Urine Specific [place] 1.014 Urine pH Dipstick 5.5 LOW Urine [...] 15.6 % LOW Lymph # 1.52 x10(3)/uL [place] % 5.1 % [place] # 0.50 K/uL Eos % 0.0 % Eos # 0.00 x10(3)/uL Baso % 0.3 % Baso # 0.03 x10(3)/uL Slide Review No IG# 0.06 x10(3)/uL HI IG% 0.60 % . Radiology results: Radiology Results (Last 48 hours) [id number] -- 03/16/2021 11:24 CR Hip Uni Comp [...] Care: Telemetry unit, Admitting: MARIA ELENA DAVALOS [facility], Launch Orders Consults: Consult to Physician (Order): Start: 03/16/2021 15:29 EDT, Consult to: SAMANTHA PINA MD-[facility], For right wrist fracture, Powder Line Repairer Notified by Physician, Group/Instructions: [facility] ortho. Notes: I certify that the MLP/MAINFRAME ANALYST performed the services as delegated. . Electronically signed by Sivan [facility] Conversion Outside Installation Machinist Cerner at 02/04/2023 1:57 PM CDT documented in this encounter Plan of Treatment Not on file documented as of this encounter Visit Diagnoses Not on filedocumented in this encounter Care Teams Door Opener Relationship Specialty Start Date End Date Jay Howell MD [address] [place] [phone] PCP - General Emergency Medicine 11/12/23 documented as of this encounter
--- OUTSIDE RECORDS SUMMARY | 2025-07-22 07:48 | XMS_ITS | Encounter Summary ---
Author Organization [employer] ([place], [place], [place], [place]) Address [address] [place] [address] Care Team Providers Care Gelatin Maker Utility Name Role Phone Jay Howell MD Primary Care Provider [phone] Encounter Details Date Type Department Care Team (Late st Contact Info) Description 06/13/2020 Transcribed Document [facility] [place] Family Medicine [address] [place] [address] ProviderJessie MD [address] [place] [address] Social History Tobacco Use Types Packs/Day Years [...] Tobacco Cues : Verbalizes understanding Activities to [place] With Smoking Urges : Verbalizes understanding Basic [...] on filedocumented in this encounter Care Teams Gelatin Maker Utility Relationship Specialty Start Date End Date Jay Howell MD [address] [place] [phone] PCP - General Emergency Medicine 11/12/23 documented as of this encounter
--- OUTSIDE RECORDS SUMMARY | 2025-07-22 07:48 | XMS_ITS | Encounter Summary ---
Author Organization [employer] ([place], [place], [place], [place]) Address [address] [place] [address] Care Team Providers Care Teacher Dancing Name Role Phone Jay Howell MD Primary Care Provider [phone] Encounter Details Date Type Department Care Team (Late st Contact Info) Description 08/22/2020 Transcribed Document [facility] [place] [address] [place] [address] ProviderJessie MD [address] [place] [address] Social History Tobacco Use Types Packs/Day Years Used Date Smoking Tobacco: Never Assessed Comments Unknown Sex and Gender Information Value Date Recorded Sex Assigned at Not on file Legal Sex Female 7:30 PM CDT Gender Identity Not on file Sexual Orientation Not on file documented as of this encounter Miscellaneous Notes * Cerner Conversion Note - Jessie ProviderMD - 08/22/2020 8:49 PM REFUGE MANAGER ED Assessment Entered On: 08/23/2020 1:11 EST Performed On: 08/22/2020 21:11 EST by Oumou Augustine RN ED Quick Look Assessment Level of Consciousness : Alert Orientation : Oriented x 4 Oumou Augustine RN - 08/23/2020 1:08 EST ED General-Functional Assess Preferred Communication Mode : Verbal Communication Barrier : None Primary Language : [place]de[place] Any Spiritual/Cultural Needs or Requests : No [...] 08/23/2020 1:08 EST Electronically signed by Sivan [facility] Conversion Grinder Tender Cerner at 02/04/2023 1:58 PM CDT documented in this encounter Plan of Treatment Not on file documented as of this encounter Visit Diagnoses Not on filedocumented in this encounter Care Teams Teacher Dancing Relationship Specialty Start Date End Date Jay Howell MD [address] [place] [phone] PCP - General Emergency Medicine 11/12/23 documented as of this encounter
--- OUTSIDE RECORDS SUMMARY | 2025-07-22 07:48 | XMS_ITS | Encounter Summary ---
Author Organization [employer] ([place], [place], [place]) Address [address] [place] [address] Care Team Providers Care Welcome Wagon Host/Hostess Name Role Phone Jay Howell MD Primary Care Provider [phone] Encounter Details Date Type Department Care Team (Late st Contact Info) Description 06/13/2020 Transcribed Document [facility] [place] [address] [place] [phone] Jessie Yuen MD [address] [place] [address] Social History Tobacco Use Types Packs/Day Years [...] Chart was reviewed. Time spent, 55 minutes. /[id number] MD MCKAY Priest/NABOR / MCKAY / BONILLAL CC: Dr. Avtar Moeller Electronically signed by [facility], [facility] Conversion Tubular Stock Glass Bulb Machine Former Cerner at 02/04/2023 2:09 PM CDT documented in this encounter Plan of Treatment Not on file documented as of this encounter Visit Diagnoses Not on filedocumented in this encounter Care Teams Welcome Wagon Host/Hostess Relationship Specialty Start Date End Date Jay Howell MD [address] [place] [phone] PCP - General Emergency Medicine 11/12/23 documented as of this encounter
--- OUTSIDE RECORDS SUMMARY | 2025-07-22 07:49 | XMS_ITS | Encounter Summary ---
Author Organization [employer] ([place], [place], [place], [place]) Address [address] [place] [address] Care Team Providers Care Exotic Dancer Name Role Phone Jay Howell MD Primary Care Provider [phone] Encounter Details Date Type Department Care Team (Late st Contact Info) Description 03/03/2021 Transcribed Document [facility] [place] [address] [place] [address] ProviderJessie MD [address] [place] [address] [phone] Social History Tobacco Use Types Packs/Day Years [...] 03/03/2021 17:11 EDT Electronically signed by Sivan [facility] Conversion Server Service Assistant Cerner at 02/04/2023 2:10 PM CDT documented in this encounter Plan of Treatment Not on file documented as of this encounter Visit Diagnoses Not on filedocumented in this encounter Care Teams Exotic Dancer Relationship Specialty Start Date End Date Jay Howell MD [address] [place] [phone] PCP - General Emergency Medicine 11/12/23 documented as of this encounter
--- OUTSIDE RECORDS SUMMARY | 2025-07-22 07:49 | XMS_ITS | Encounter Summary ---
Author Organization [employer] ([place], [place], [place], [place]) Address [address] [place] [address] Care Team Providers Care Residential Leasing Manager Name Role Phone Jay Howell MD Primary Care Provider [phone] Encounter Details Date Type Department Care Team (Late st Contact Info) Description 02/13/2021 Transcribed Document [facility] [place] [address] [place] [address] ProviderJessie MD [address] [place], [place] [phone] Social History Tobacco Use Types Packs/Day Years [...] Yuen MD - 02/13/2021 12:19 PM CDT [facility] [place] [address] SKYLER MONTOYA :1940 Visit Time:02/13/2021 What to do next Your Diagnosis Personal history of colonic polyps Unspecified abdominal pain Follow-Up Appointments Follow Up with FABY GRIMM MD When Only if needed Where: [address] [facility] [address] [place] [address]- Medications What How Much When Instructions Next [...] counseling. ??? Working with a diet and control systems specialist (dietitian) to help create a food [...] for some people. General instructions ??? Take znkr-vkb-horetoc and prescription medicines and supplements only as [...] provider. Document Revised: 09/26/2018 Document Reviewed: 09/26/2018 [employer] Patient Education ?? 2020 [employer] Segura's Esophagus Segura's esophagus occurs when [...] Tomatoes and foods made with tomatoes. ? Barney or spicy foods. ? Chocolate and peppermint. ??? Do not drink alcohol. General instructions ??? Take jcjp-sxl-cqlvggd and prescription medicines only as told by [...] provider. Document Revised: 01/29/2019 Document Reviewed: 01/29/2019 [employer] Patient Education ?? 2020 [employer] ESOPHAGOGASTRODUODENOSCOPY Care After Read the instructions [...] eating solid foods. General instructions ??? Take ptiq-raa-izdxtdu and prescription medicines only as told by [...] provider. Document Revised: 01/01/2019 Document Reviewed: 01/23/2017 [employer] Patient Education ?? 2020 [employer]. Gastritis, Adult Gastritis is inflammation of the [...] medicines. These include steroids, antibiotics, and some olft-vrf-qekdenv medicines, such as aspirin or ibuprofen. ??? [...] these instructions at home: Medicines ??? Take huxd-zpz-kvtsccm and prescription medicines only as told by [...] Reviewed: 02/20/2019 [employer] Patient Education ?? 2020 [employer] Colonoscopy, Adult A colonoscopy is a [...] including vitamins, herbs, eye drops, creams, and lkou-gtu-xefwckk medicines. ??? Any problems you or family [...] tells you to take them. ??? Taking ycpn-gua-tzdafiz medicines, vitamins, herbs, and supplements. General instructions [...] provider. Document Revised: 04/25/2020 Document Reviewed: 04/25/2020 [employer] Patient Education ?? 2020 [employer] Colon Polyps Polyps are tissue growths [...] provider. Document Revised: 01/18/2019 Document Reviewed: 01/18/2019 [employer] Patient Education ?? 2020 [employer]. Emergency Awareness and Preventative Care STROKE is [...] Assistance with quitting is available by contacting 1-403-BINJ-NOW. This is a free resource providing counseling, [...] was given the opportunity to ask questions. Patient/Director Commercial Sales Name: Patient/Director Commercial Sales Signature: Relationship to Patient: Clinician/Hospital Director Commercial Sales Signature: Date: documented in this encounter Plan of Treatment Not on file documented as of this encounter Visit Diagnoses Not on filedocumented in this encounter Care Teams Residential Leasing Manager Relationship Specialty Start Date End Date Jay Howell MD [address] [place] [phone] PCP - General Emergency Medicine 11/12/23 documented as of this encounter
--- OUTSIDE RECORDS SUMMARY | 2025-07-22 07:49 | XMS_ITS | Encounter Summary ---
Author Organization [employer] ([place], [place], [place], [place]) Address [address] [place] [address] Care Team Providers Care Card Room Manager Name Role Phone Jay Howell MD Primary Care Provider [phone] Encounter Details Date Type Department Care Team (Late st Contact Info) Description 03/03/2021 Transcribed Document [facility] [place] [address] [place] [address] ProviderJessie MD [address] [place] [address] [phone] Social History Tobacco Use Types Packs/Day Years [...] Communication Barrier : None Primary Language : Liberian Any Spiritual/Cultural Needs or Requests : No [...] - 03/03/2021 16:24 EDT Electronically signed by [facility] Conversion Logistics Engineering Manager Cerner at 02/04/2023 2:00 PM CDT documented in this encounter Plan of Treatment Not on file documented as of this encounter Visit Diagnoses Not on filedocumented in this encounter Care Teams Card Room Manager Relationship Specialty Start Date End Date Jay Howell MD [address] [place] [phone] PCP - General Emergency Medicine 11/12/23 documented as of this encounter
--- OUTSIDE RECORDS SUMMARY | 2025-07-22 07:49 | XMS_ITS | Encounter Summary ---
Author Organization [employer] 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 femur repair. Appendectomy (454823268). uterine suspension. Hysterectomy (627431376). back surgury. Cholecystectomy (87082879). Hip replacement ([id number]). cataract surgury.. Family history: Cardiomyopathy Child Stroke [...] EDT Height Source Stated Height Entry Format Bowler Height/Length, NICARAGUAN (ft) 5 ft Height/Length NICARAGUAN 3 Inch CLINICALHEIGHT 160.02 cm [place] Body Weight 52.02 kg Weight Source, ED Critical estimated dosing weight Weight Entry Format Bowler Weight Italian lb 154 lb CLINICALWEIGHT 70 kg Body [...] Radiology results: Radiology Results (Last 48 hours) [id number] -- 03/03/2021 15:59 CR Hip Uni Comp [...] and dictated by Dr. Charlette Herrera.Transcribed by Gerhrad Bhatia PA-C, KyleeTJessi (N), C Gorge Thornton [...] 17:04 EDT, Discharge to: Home. Prescriptions: Prescription [facility]: [place] 7.5 mg-325 mg oral tablet (Prescribe): 1 [...] filedocumented in this encounter Care Teams Paper Sheeter Relationship Specialty Start Date End Date Jay Howell MD [address] [place] [phone] PCP - General Emergency Medicine 11/12/23 documented as of this encounter
--- OUTSIDE RECORDS SUMMARY | 2025-07-22 07:49 | XMS_ITS | Encounter Summary ---
Author Organization [email or web address] ([place], [place], [place], [place]) Address [address] [place] [address] Care Team Providers Care Attorney Name Role Phone Jay Howell MD Primary Care Provider [phone] Encounter Details Date Type Department Care Team (Late st Contact Info) Description 02/13/2021 Transcribed Document [facility] [place] [address] [place] [address] ProviderJessie MD [address] [place], [place] [phone] Social History Tobacco Use Types Packs/Day Years Used Date Smoking Tobacco: Never Assessed Comments Unknown Sex and Gender Information Value Date Recorded Sex Assigned at Not on file Legal Sex Female 7:30 PM CDT Gender Identity Not on file Sexual Orientation Not on file documented as of this encounter Miscellaneous Notes * [employer] Conversion Note - Historical ProviderMD - 02/13/2021 11:43 AM CDT [facility] Saji IntraOp Summary Primary Physician: FABY GRIMM MD Finalized Date/Time: 02/13/21 12:03:45 Pt. Name: SKYLER MONTOYAO.B./Sex: 1940 Female Med Rec #: [id number] Physician: FABY GRIMM MD Financial #: [id number] Pt. Type: O Room/Bed: END/ Admit/Disch: 02/13/21 09:44:00 - Institution: [facility] - Case Attendance Entry 1 Entry 2 Entry 3 Case Attendee FABY GRIMM MD MILLER, MELISSA A RN ELVIN HUNG Role Performed Surgeon/Proceduralist, Mint Machine Operator, First Scrub, First First Time In 02/13/21 [...] SHANA M, STEPHANIE, Denisa Anderson Rn -ANS CYBER SYSTEMS OPERATIONS SPECIALIST-ANS Role Performed Anesthesiologist of CYBER SYSTEMS OPERATIONS SPECIALIST/Nurse Undercover Agent Mint Machine Operator, First Record Time In 02/13/21 11:35:00 02/13/21 [...] RN 02/13/21 12:00:47 02/13/21 12:00:47 02/13/21 12:00:47 [facility] Endo - Case Attendance Audit 02/13/21 12:00:47 Reinsurance Clerk: [id number] Modifier: [id number] 1 <+> Time Out 1 <*> Procedure [...] Biopsy, Colon Biopsy, Colon Polypectomy 02/13/21 12:00:36 Reinsurance Clerk: [id number] Modifier: [id number] 1 <*> Procedure Colonoscopy, Esophagogastroduodenoscopy, Esophageal Biopsy, Gastric Biopsy, Colon Biopsy 2 <*> Procedure Esophageal Biopsy, Gastric Biopsy, Colon Biopsy 3 <*> Procedure Esophageal Biopsy, Gastric Biopsy, Colon Biopsy 4 <*> Procedure Esophageal Biopsy, Gastric Biopsy, Colon Biopsy 5 <*> Procedure Esophageal Biopsy, Gastric Biopsy, Colon Biopsy 6 <*> Procedure Esophageal Biopsy, Gastric Biopsy, Colon Biopsy 02/13/21 11:58:05 Reinsurance Clerk: [id number] Modifier: [id number] 1 <*> Procedure Colonoscopy, Esophagogastroduodenoscopy <+> 2 Procedure <+> 3 Procedure <+> 4 Procedure <+> 5 Procedure <+> 6 Procedure 02/13/21 11:48:04 Reinsurance Clerk: [email or web address] Modifier: [id number] 1 <+> Time In 1 <*> Procedure Colonoscopy, Esophagogastroduodenoscopy <+> 2 Time In <+> 2 Time Out <+> 3 Time In <+> 4 Time In <+> 5 Time In <+> 6 Case Attendee <+> 6 Role Performed <+> 6 Time In 02/13/21 11:38:46 Reinsurance Clerk: GIULIA Modifier: [email or web address] <+> 2 Case Attendee <+> 2 Role Performed <+> 3 Case Attendee <+> 3 Role Performed <+> 4 Case Attendee <+> 4 Role Performed <+> 5 Case Attendee <+> 5 Role Performed [facility] Endo - Case times Entry 1 Patient In Room Time 02/13/21 11:35:00 Out Room Time 02/13/21 12:02:00 Anesthesia Start Time 02/13/21 11:35:00 Stop Time 02/13/21 12:02:00 Surgery / Procedure Times Start Time 02/13/21 11:43:00 Stop Time 02/13/21 12:00:00 Last Modified By: Denisa Anderson RN 02/13/21 12:00:45 [facility] Endo - Case times Audit 02/13/21 12:00:45 Reinsurance Clerk: [id number] Modifier: [id number] <+> 1 Out Room Time <+> 1 Stop Time <+> 1 Stop Time 02/13/21 11:45:26 Reinsurance Clerk: [email or web address] Modifier: [id number] <+> 1 Start Time [facility] Endo - Cautery Entry 1 ESU Identification Cautery Type Monopolar ESU ID Number [id number] ID Type Hospital Number Cautery Settings Cut Setting 5 Coag Setting 25 ESU Grounding Pad Ground Pad Type Adult Grounding Pad Site Right thigh Grounding Pad ELVIN HUNG Applied By Grounding Pad Site Warm, dry and intact Skin Condition Before Cautery Grounding Pad Site Unchanged Skin Condition After Cautery Last Modified By: Denisa Anderson RN 02/13/21 12:03:44 [facility] Endo - Cautery Audit 02/13/21 12:03:44 Reinsurance Clerk: [id number] Modifier: [id number] <+> 1 ID Number [facility] Endo - Cultures and Spec Summary Entry 1 Cultrures and Specimens Specimen Ordered: Yes Test(s) Routine/Path-Lab Requested/Final Disposition Last Modified By: Denisa Anderson RN 02/13/21 11:59:20 [facility] Endo - Delays Entry 1 Delay Reason Other, No Delay Duration 0 Minute(s) Last Modified By: LO HOFF RN 02/13/21 11:38:59 [facility] Endo - Departure from OR Entry 1 Integumentary Assessment Integumentary WDL Assessment WDL Transfer/Handoff Transfer to PACU Phase I Handoff Method Bedside/Face to face Post-op Transport Stretcher/Gurney Via Patient Transport LO HOFF RN, Accompanied by TRENTON GONZALEZ APRN, CYBER SYSTEMS OPERATIONS SPECIALIST-ANS Last Modified By: LO HOFF RN 02/13/21 11:39:01 [facility] Endo - Endoscopy Details Entry 1 Abdomen Procedure Soft, Non-Tender Assessment Procedure Abdomen 02/13/21 11:39:00 Assessment D/T Radio Frequency Ablation Abdominal Pressure Last Modified By: LO HOFF RN 02/13/21 11:39:05 [facility] Endo - Fire Risk Assessment Entry [...] Modified By: LO HOFF RN 02/13/21 11:39:08 [facility] Endo - General Case Enterprise Applications Manager 1 Case Information [place] Endo 01 [facility] Case Level 1 Room Verified Yes Wound Class III - Contaminated Specialty Gastroenterology Anesthesia Type General ASA Class 4 Diagnosis Preop Diagnosis dyspepsia, change in bowel habits Postop Same As Preop No Postop Diagnosis chronic gastritis, alexis's esophagus, IBS, colon polyp Last Modified By: Denisa Anderson RN 02/13/21 12:02:28 [facility] Endo - General Case Data Audit 02/13/21 12:02:28 Reinsurance Clerk: [email or web address] Modifier: [id number] 1 <*> Postop Same As Preop Yes 1 <*> Postop Diagnosis dyspepsia, change in bowel habits [facility] Endo - Intraoperative Assessment Entry 1 Valid History / Yes Physical in Chart Preoperative Yes Checklist Reviewed/Evaluated Patient is Latex No Sensitive Level of WDL Consciousness (WDL = Alert, Oriented to Person, Place, and Time) Last Modified By: LO HOFF RN 02/13/21 11:39:33 [facility] Endo - Intraoperative Equipment Entry 1 Equipment Intraop Monitoring Electrocardiogram Three lead placement (ECG) Electrode Placement Blood Pressure Arm, left upper Location Pulse Oximeter Hand, right Probe Site Antiembolic Devices Scopes Flexible Endoscopes Gastroscope Used Scope Serial E, P Number/Identificatio n Number Photo/Video Documentation Photo Yes Video No Last Modified By: LO HOFF RN 02/13/21 11:39:46 [facility] Endo - Patient Positioning Entry 1 [...] Modified By: LO HOFF RN 02/13/21 11:39:48 [facility] Endo - Sign In Entry 1 Patient, Site, Yes Procedure Identified Surgical Consent Yes Confirmed Surgical Site N/A Marked by person performing procedure Airway Hypothermia Risk No Warming Measures No Taken Last Modified By: LO HOFF RN 02/13/21 11:39:54 [facility] Endo - Sign Out Entry 1 [...] Modified By: Denisa Anderson RN 02/13/21 12:01:16 [facility] Endo - Surgical Procedures Entry 1 [...] Clean-Contaminated II - Clean-Contaminated Last Modified By: Denisa Anderson RN [place], [...] RN 02/13/21 12:01:06 02/13/21 12:01:06 02/13/21 12:01:06 [facility] Endo - Surgical Procedures Audit 02/13/21 12:01:06 Reinsurance Clerk: [id number] Modifier: [id number] <+> 1 Stop <+> 3 Stop <+> 4 Stop <+> 5 Stop <+> 6 Stop 02/13/21 12:00:33 Reinsurance Clerk: [id number] Modifier: [id number] <+> 6 Procedure <+> 6 Primary Procedure <+> 6 Primary Surgeon <+> 6 Specialty <+> 6 Start <+> 6 Wound Class <+> 6 Anesthesia Type <+> 6 Additional Procedure Description <+> 6 Physician States Cecum Reached 02/13/21 11:58:01 Reinsurance Clerk: [email or web address] Modifier: [id number] 1 <*> Procedure Colonoscopy 1 <+> Start [...] Anesthesia Type <+> 5 Additional Procedure Description [facility] Endo - Time Out Entry 1 [...] RN 02/13/21 12:03 Electronically signed by Sivan [facility] Conversion Database Developer Cerner at 02/04/2023 2:05 PM CDT documented in this encounter Plan of Treatment Not on file documented as of this encounter Visit Diagnoses Not on filedocumented in this encounter Care Teams Attorney Relationship Specialty Start Date End Date Jay Howell MD [address] [place] [phone] PCP - General Emergency Medicine 11/12/23 documented as of this encounter
--- OUTSIDE RECORDS SUMMARY | 2025-07-22 07:49 | XMS_ITS | Encounter Summary ---
Author Organization [employer] ([place], [place], [place], [place]) Address [address] [place] [address] Care Team Providers Care Boss Dyer Name Role Phone Jay Howell MD Primary Care Provider [phone] Encounter Details Date Type Department Care Team (Late st Contact Info) Description 02/13/2021 Transcribed Document [facility] [place] [facility] [place] [address] ProviderJessie MD [address] [place], [place] [phone] Social History Tobacco Use Types Packs/Day Years [...] in bowel habits *Postoperative Diagnosis chronic gastritis, alexis's esophagus, IBS, colon polyp *Surgeon(s) Primary Surgeon [...] 11:50:00 (02/13/21 12:00:33) Electronically signed by Sivan [facility] Conversion Airline Security Representative Cerner at 02/04/2023 2:14 PM CDT documented in this encounter Plan of Treatment Not on file documented as of this encounter Visit Diagnoses Not on filedocumented in this encounter Care Teams Boss Dyer Relationship Specialty Start Date End Date Jay Howell MD [address] [place] [phone] PCP - General Emergency Medicine 11/12/23 documented as of this encounter
--- OUTSIDE RECORDS SUMMARY | 2025-07-22 07:49 | XMS_ITS | Encounter Summary ---
Author Organization [employer] ([place], [place], [place], [place]) Address [address] [place] [address] Care Team Providers Care Broom Bundler Name Role Phone Jay Howell MD Primary Care Provider [phone] Encounter Details Date Type Department Care Team (Late st Contact Info) Description 02/13/2021 Transcribed Document [facility] [place] [address] [place] [address] ProviderJessie MD [address] [place], [place] [phone] Social History Tobacco Use Types Packs/Day Years Used Date Smoking Tobacco: Never Assessed Comments Unknown Sex and Gender Information Value Date Recorded Sex Assigned at Not on file Legal Sex Female 7:30 PM CDT Gender Identity Not on file Sexual Orientation Not on file documented as of this encounter Miscellaneous Notes * Cerner Conversion Note - Historical ProviderMD - 02/13/2021 11:30 AM CDT [facility] Saji PreOp Summary Primary Physician: FABY GRIMM MD Finalized Date/Time: 02/13/21 11:03:33 Pt. Name: SKYLER MONTOYAO.B./Sex: 1940 Female Med Rec #: [id number] Physician: FABY GRIMM MD Financial #: [id number] Pt. Type: O Room/Bed: END/ Admit/Disch: 02/13/21 09:44:00 - Institution: [facility] Endo PreOp Case Times Entry 1 In [...] Tompkins RN-PATIENT CARE BEDSIDE NON-EXEMPT 02/13/21 11:03 Electronically signed by Sivan [facility] Conversion Tax Intern Cerner at 02/04/2023 2:00 PM CDT documented in this encounter Plan of Treatment Not on file documented as of this encounter Visit Diagnoses Not on filedocumented in this encounter Care Teams Broom Bundler Relationship Specialty Start Date End Date Jay Howell MD [address] [place] [phone] PCP - General Emergency Medicine 11/12/23 documented as of this encounter
--- OUTSIDE RECORDS SUMMARY | 2025-07-22 07:49 | XMS_ITS | Encounter Summary ---
Author Organization [employer] ([place], [place], [place], [place]) Address [address] [place] [address] Care Team Providers Care Children'S Tutor Name Role Phone Jay Howell MD Primary Care Provider [phone] Encounter Details Date Type Department Care Team (Late st Contact Info) Description 02/13/2021 Transcribed Document [facility] [place] [address] ProviderJessie MD [address] [place], [place] [id number] Social History Tobacco Use Types Packs/Day Years [...] Source : Stated Height Entry Format : [place] Height, Feet : 5 ft(Converted to: 152 cm, 60 Inch) Height, Inches : 4 Inch(Converted to: 0 ft 4 Inch, 10.16 cm) Clinical Height : 162.56 cm Weight Source : Standing scale Weight Entry Format : [place] Clinical Dosing Weight : 71.64 kg Weight, Pounds : 157.6 lb Body Surface Area (BSA) : 1.77 m2 Body Mass Index : 27.1 kg/m2 (HI) [place] Body Weight : 54 kg Ludivina Tompkins [...] test? : No Ludivina Tompkins RN-PATIENT CARE [facility] NON-EXEMPT - 02/13/2021 10:47 EDT Anesthesia/Transfusion History Family History of Anesthesia Reaction : Prior transfusion reaction Type of Transfusion Reaction : Hemolytic reaction Transfusion History : Prior anesthesia without reaction Family History of Anesthesia Reaction : None Ludivina Tompkins RN-PATIENT CARE [facility] NON-EXEMPT - 02/13/2021 10:47 EDT Functional Assessment Living Situation : Home Current Home Treatments : Blood glucose monitoring, CPAP Ludivina Tompkins RN-PATIENT CARE [facility] NON-EXEMPT - 02/13/2021 10:47 EDT [place] Suicide Severity Rating Scale (C-SSRS) CSSRS Past Month Wish to be : No CSSRS Past Month Suicidal Thoughts : No CSSRS Lifetime Suicide Behavior : No Suicide Severity Rating Score : 0 Suicide Severity Rating : No Additional Care Required at this time Ludivina Tompkins RN-PATIENT CARE [facility] NON-EXEMPT - 02/13/2021 10:47 EDT Psychosocial History Chronic/Terminal Illness w/Freq Visits : No Currently in Unsafe Situation : No Ludivina Tompkins RN-PATIENT CARE [facility] NON-EXEMPT - 02/13/2021 10:47 EDT Advance Directive Patient has Advance Directive *Q : No, patient refuses Advance Directive information Ludivina Tompkins RN-PATIENT CARE [facility] NON-EXEMPT - 02/13/2021 10:47 EDT General Info Preferred Name : ilsa Support Person/Patient [employer] Senior Sergeant : Yes Support Person/Pt Rep Name : Willard Contact Password : Marvin Support Person/Pt Rep Contact Information : [id number] Want Family/Rep/Phys Notified of Admit : No Emergency Contact #1 : Johnny Montoya Emergency Contact #1 Emergency Contact #1 Relationship : spouse Emergency Contact #2 : - Emergency Contact #2 Phone Number : - Emergency Contact #2 Relationship : - Primary Language : Bahamian Preferred Communication Mode : Verbal Communication Barrier : None Cardiograph Operator Needed : Ludivina Tong RN-PATIENT CARE [facility] NON-EXEMPT - 02/13/2021 [...] Scale Risk Level : 25-45 Medium Risk Gordon Fall Interventions : Adequate lighting, Bed in [...] CARE [facility] NON-EXEMPT - 02/13/2021 10:47 EDT documented in this encounter Plan of Treatment Not on file documented as of this encounter Visit Diagnoses Not on filedocumented in this encounter Care Teams Children'S Tutor Relationship Specialty Start Date End Date Jay Howell MD [address] [place] [phone] PCP - General Emergency Medicine 11/12/23 documented as of this encounter
--- OUTSIDE RECORDS SUMMARY | 2025-07-22 07:49 | XMS_ITS | Clinical Summary ---
Author Organization [facility] Address [address] [place] [id number] Care Team Providers Care Normalizer Name Role Phone Unavailable Primary Care Provider Unavailabl e Social History Tobacco Use Types Packs/Day Years Used Date Smoking Tobacco: Never Assessed Comments Unknown Sex and Gender Information Value Date Recorded Sex Assigned at Not on file Legal Sex Female 2:54 PM EDT Gender Identity Not on file Sexual Orientation Not on file Plan of Treatment Health Maintenance Due Date Last Done Comments Annual Visit Topic 12/23/1941 Pneumococcal Vaccine: 65+ Years (1 of 2 - PCV) 12/23/1989 DTaP/Tdap/Td Vaccines (2 - T d or Tdap) 01/19/2034 01/20/2024, 07/07/2005 HIB Vaccines Aged Out No longer eligi ble based on patient's age to complete this topic HPV Vaccines Aged Out No longer eligi ble based on patient's age to complete this topic Hepatitis A Vaccines Aged Out No long er eligible based on patient's age to complete this topic Hepatitis B Vaccines Aged Out No long er eligible based on patient's age to complete this topic IPV Vaccines Aged Out No longer eligi ble based on patient's age to complete this topic Meningococcal Vaccine Aged Out No mauricio ham eligible based on patient's age to complete this topic
--- OUTSIDE RECORDS SUMMARY | 2025-07-22 07:49 | XMS_ITS | Encounter Summary ---
Author Organization [employer] ([place], [place], [place], [place]) Address [address] [place] [address] Care Team Providers Care Nike Athlete Name Role Phone Jay Howell MD Primary Care Provider [phone] Encounter Details Date Type Department Care Team (Late st Contact Info) Description 03/03/2021 Transcribed Document [facility] [place] [address] ProviderJessie MD [address] [place] [address] Social History Tobacco Use Types [...] ProviderMD - 03/03/2021 5:09 PM CDT [facility] [address] SKYLER MONTOYA :1940 Visit Time:03/03/2021 Your Visit [...] call you with a follow-up appointment Where: [address] [place] [address] [facility] (1) Allergies Macrodantin morphine (rash, rash) Immunizations This Visit No Immunizations Found Medications What How Much When Instructions Next Dose acetaminophen-hydrocodone ([place] 7.5 mg-325 mg oral tablet) 1 Tablet(s) Oral Every 6 Hours as needed for for pain Pickup at [place] [address] lidocaine topical (Lidoderm 5% topical film) 1 Patch(es) TransDermal Every Day Pickup at [place] [address] ALPRAZolam (Xanax 0.5 mg oral tablet) 1 [...] Information [facility] 712: [phone] [place] [id number] [phone] The home medications listed are only as [...] that cause pain. General instructions ??? Take [id number] and prescription medicines only as told by [...] provider. Document Revised: 02/18/2020 Document Reviewed: 02/18/2020 [employer] Patient Education ?? 2020 [employer]. Emergency Awareness and Preventative Care [place] is [...] Assistance with quitting is available by contacting 7-115-AUTG-NOW. This is a free resource providing counseling, [...] was given the opportunity to ask questions. Patient/Body Builder Apprentice Name: Patient/Body Builder Apprentice Signature: Relationship to Patient: Clinician/Hospital Body Builder Apprentice Signature: Please Provide a Telephone Number Where You Can Be Reached: Is it Permissible To Leave a Message? Date: Electronically signed by Sivan Cox [place] Conversion Traffic Operations Manager Cerner at 02/04/2023 1:58 PM CDT documented in this encounter Plan of Treatment Not on file documented as of this encounter Visit Diagnoses Not on filedocumented in this encounter Care Teams Nike Athlete Relationship Specialty Start Date End Date Jay Howell MD [address] [place] [phone] PCP - General Emergency Medicine 11/12/23 documented as of this encounter
--- OUTSIDE RECORDS SUMMARY | 2025-07-22 07:49 | XMS_ITS | Data Portability ---
Author Organization BEATRIZ JUANITA Benitez [place] [facility] Address [address] [facility] [address] [place] [address] Care Team Providers Care Second Cook And Baker Name Role Phone KEVIN RIBERA Primary Care Provider Assessment Encounter Date Assessment Date Assessment LastModified [...] sensitivity. Renal ultrasound to evaluate renal cysts. [email or web address] Not available 06/21/2022 15:32:33 Plan of Treatment Reminders Order Date Submit Date Provider Last Modified By Organization Details Last Modified Time Details Appointments None recorded. Lab culture, urine 2021 022 [facility], [facility], [place], [address], 13:37:11 urinalysis panel, auto 2021 022 [email or web address] [facility] [place] [facility], [address] , [address], [place], [address], 15:32:26 Referral None recorded. Procedures None recorded. Surgeries None recorded. Imaging US, retroperito neum, limited - BILATERAL RENAL US W/O BLADDER CALL SKYLER BAUTISTA AT NO AUTHORIZATI ON REQUIRED. 2021 022 [facility], [address] , [place], [address], 09:04:59 XR, wrist, 2 view - patient in room 5 2020 021 DBA_BACKF [place]_ 07 Not available 03:33:26 Medication Orders None recorded. Patient TargetsNo targets recorded. Patient Instructions Encounter Date Encounter Id Patient Instructions Last Modified By Organization Details Last Modified Time 06/10/2022 [id number] learning about healthy weight [email or web address] Not available 06/21/2022 15:32:34 Reason for Referral None Reported. Results Created Date Observation Date Name Description Value Unit Range Abnormal Flag Note LastModifiedBy Organization Detail LastModifiedTime 06/10/2006/10/2022 URINE CULTU RE results Sour e: CCUR Colle cted: 06/10 17:55 Site: Recei lydia : 06/10 19:27 URINE CULTU RE [...] tivit y in progr ess. 06/13 See [facility] Resul t(s) Below ISOLA CAPRI AND SENSI TIVIT Y RESUL TS [facility] 01 Strep . agala ctiae (Grou p B) [facility] 02 Esche manish a coli __ [facility] ORG# 01 ORG# 02 ANTIB IOTIC [...] R Vanco mycin 0.5 S Not Available [facility] [place], [address], 06/13/2022 13:37:11 06/10/20 22 06/10/2022 urina lysis panel , auto Unknown Analyte Clean Catch Not Available [facility] [place] With [address], [place], [address], 06/10/2022 18:27:47 06/10/20 22 06/10/2022 urina lysis panel , auto Unknown Analyte Yellow Not Available [facility] [place] With [address], [place], [address], 06/10/2022 18:27:47 06/10/20 22 06/10/2022 urina lysis panel , auto Unknown Analyte Clear Not Available [facility] With [address] Gisele Delacruz, [place], [address], 06/10/2022 18:27:47 06/10/20 22 06/10/2022 urina lysis panel , auto Unknown Analyte 1.025 Not Available [facility] With [address] Gisele Delacruz, [place], [address], 06/10/2022 18:27:47 06/10/20 22 06/10/2022 urina lysis panel , auto Unknown Analyte 1.003- 1.035 Not Available [facility] With [address] Gisele Delacruz, [place], [address], 06/10/2022 18:27:47 06/10/20 22 06/10/2022 urina lysis panel , auto Unknown Analyte 5.0 Not Available [facility] With [address] Gisele Delacruz, [place], [address], 06/10/2022 18:27:47 06/10/20 22 06/10/2022 urina lysis panel , auto Unknown Analyte 5.0-8. 0 Not Available [facility] With [address], [place], [address], 06/10/2022 18:27:47 06/10/20 22 06/10/2022 urina lysis panel , auto Unknown Analyte 75 Ion/ul (+) Not Available [facility] With [address], [place], [address], 06/10/2022 18:27:47 06/10/20 22 06/10/2022 urina lysis panel , auto Unknown Analyte Negati ve Not Available [facility] With [address], [place], [address], 06/10/2022 18:27:47 06/10/20 22 06/10/2022 urina lysis panel , auto Unknown Analyte Negati ve Not Available [facility] With [address] Gisele Delacruz, [place], [address], 06/10/2022 18:27:47 06/10/20 22 06/10/2022 urina lysis panel , auto Unknown Analyte Negati ve Not Available [facility] With [address] Gisele Delacruz, [place], [address], 06/10/2022 18:27:47 06/10/20 22 06/10/2022 urina lysis panel , auto Unknown Analyte 30 mg/dl (+) Not Available [facility] With [address] Gisele Delacruz, [place], [address], 06/10/2022 18:27:47 06/10/20 22 06/10/2022 urina lysis panel , auto Unknown Analyte Negati ve Not Available [facility] With [address], [place], [address], 06/10/2022 18:27:47 06/10/20 22 06/10/2022 urina lysis panel , auto Unknown Analyte Normal Not Available [facility] With [address] Gisele Delacruz, [place], [address], 06/10/2022 18:27:47 06/10/20 22 06/10/2022 urina lysis panel , auto Unknown Analyte Normal Not Available [facility] With [address] Gisele Delacruz, [place], [address], 06/10/2022 18:27:47 06/10/20 22 06/10/2022 urina lysis panel , auto Unknown Analyte 15 mg/dl (Sm) Not Available [facility] With [address] Jaquez F, [place], [address], 06/10/2022 18:27:47 06/10/20 22 06/10/2022 urina lysis panel , auto Unknown Analyte Negati ve Not Available [facility] [place] With [address] Gisele Delacruz, [place], [address], 06/10/2022 18:27:47 06/10/20 22 06/10/2022 urina lysis panel , auto Unknown Analyte 1 mg/dl Not Available [facility] With [address] Gisele Delacruz, [place], [address], 06/10/2022 18:27:47 06/10/20 22 06/10/2022 urina lysis panel , auto Unknown Analyte Normal 1 mg/dl Not Available [facility] With [address], [place], [address], 06/10/2022 18:27:47 06/10/20 22 06/10/2022 urina lysis panel , auto Unknown Analyte 1 mg/dl (+) Not Available [facility] With [address], [place], [address], 06/10/2022 18:27:47 06/10/20 22 06/10/2022 urina lysis panel , auto Unknown Analyte Negati ve Not Available [facility] [place] With [address], [place], [address], 06/10/2022 18:27:47 06/10/20 22 06/10/2022 urina lysis panel , auto Unknown Analyte Negati ve Not Available [facility] [place] With [address], [place], [address], 06/10/2022 18:27:47 06/10/20 22 06/10/2022 urina lysis panel , auto Unknown Analyte Negati ve Not Available [facility] [place] [facility] [address], [place], [address], 06/10/2022 18:27:47 03/24/20 21 03/24/2021 [facility] [address] [place] [address] Patiyang t Name: SKYLER javed : [birth year] [...] moser MD on 03/24/20 1:59 PM DBA_BACKFIL_ [facility] [place] [address] , [place], [address], 04/22/2022 03:33:26 03/24/20 21 03/24/2021 XR, wrist , 2 view [facility] [address] [place] [address] Patiyang t Name: SKYLER javed : [birth year] [...] Matt moser MD on 03/24/20 3:47 PM [email or web address] [facility] [place] [address] , [place], [address], 04/22/2022 03:33:26 03/31/20 21 03/31/2021 XR, wrist , [address] [facility] [address] [place] [address] Patiyang t Name: SKYLER FRANKS Patiyang javed : [birth year] 39 Patien t Orderi ng Provid er: JUANIS BEDOLLA [...] Interp reted By: Matt moser MD Electr on ly Signed By: Matt moser MD on 1:41 PM DBA_BACKFIL [facility] [address] , [place], [address], 04/22/2022 03:33:26 04/10/2004/09/2021 XR, wrist , 2 view [facility] [address] [place] [address] Patien t Name: SKYLER javed : [birth year] Patiyang t Shaunna ng Provid er: JUANIS BEDOLLA EXAM DATE: [...] Interp reted By: Matt moser MD Electr on ly Signed By: Matt moser MD on 8:23 AM DBA_BACKFIL [facility] [place] [address] , [place], [address], 04/22/2022 03:33:26 04/30/2004/30/2021 XR, wrist , 2 view [facility] [address] [place] [address] Patiyang javed Name: SKYLER javed : [birth year] Liban javed Shaunna stevenson Provid er: JUANIS BEDOLLA EXAM DATE: 2020 [...] Matt moser MD on 1:22 PM DBA_BACKFIL_ [facility] [place] [address] , [place], [address], 04/22/2022 03:33:26 05/28/20 21 05/28/2021 XR, wrist , 2 view [place] [facility] [address] [place] [address] Liban javed Name: SKYLER javed : [birth year] Liban javed Shaunna stevenson Provid er: JUANIS BEDOLLA EXAM DATE: 2020 [...] Matt moser MD on 021 1:34 PM DBA_BACKFIL_ [facility] [place] [address] , [place], [address], 04/22/2022 03:33:28 06/15/20 22 06/15/2022 US, retro perit oneum , limit ed No observ ation record ed. [email or web address] [facility] (Radiology) [address] [place] [address] , [place], [address], 07/05/2022 12:06:03 Result Notes Documentation Provider Name and Address Organization Details Recorded Time Xr, Wrist, 2 View : [facility] [address] [place] [address] Patient Name: SKYLER BAUTISTA Patient : 1940 Patient Ordering Provider: MARLENY BEDOLLA EXAM DATE: 03/31/2021 EXAM: XR RT WRIST, AP/LAT HISTORY: Followup of fracture. COMPARISON: 03/24/2021 FINDINGS: Again seen is a fracture of the distal metaphysis of the right radius. This is unchanged in alignment in comparison to the prior study. There is dorsal impaction and mild displacement. There is a fracture of the ulnar styloid. There is a cast overlying the wrist. No other fracture is seen. There are mild to moderate degenerative changes. IMPRESSION: 1. There is unchanged alignment of the fracture of the distal metaphysis of the right radius. 2. There is a fracture of the ulnar styloid. Interpreted By: Donovan Spivey MD ENY BEDOLLA PA-C [address] [place], [address], [facility] 03/31/2021 14:12:15 [facility]r, Wrist, [facility] [address] [place] [address] Patient Name: SKYLER BAUTISTA Patient : 1940 Patient Ordering Provider: MARLENY BEDOLLA EXAM DATE: 04/09/2021 EXAM: XR RT WRIST, AP/LAT HISTORY: Followup of fracture. COMPARISON: 03/31/2021 FINDINGS: Again seen is a fracture of the distal metaphysis of the right radius. This is unchanged in alignment in comparison to the prior study. There is dorsal impaction and mild displacement. There is a fracture of the ulnar styloid. There has been interval removal of a cast. No other fracture is seen. There are mild to moderate degenerative changes. There are prominent vascular calcifications. IMPRESSION: 1. There is unchanged alignment of the fracture of the distal metaphysis of the right radius. 2. There is a fracture of the ulnar styloid. Interpreted By: Donovan Spivey MD ENY BEDOLLA PA-C [address] [place], [address], [facility] 04/10/2021 08:34:27 Xr, Wrist, 2 View : [facility] [address] [place] [address] Patient Name: SKYLER BAUTISTA Patient : 1940 Patient Ordering Provider: MARLENY BEDOLLA EXAM DATE: 04/30/2021 EXAM: XR RT WRIST, AP/LAT HISTORY: Followup of fracture. COMPARISON: 04/09/2021 FINDINGS: Again seen is a fracture of the distal metaphysis of the right radius. This is unchanged in alignment in comparison to the prior study. There is dorsal impaction and mild displacement. There is a fracture of the ulnar styloid. No other fracture is seen. There are mild to moderate degenerative changes. There are prominent vascular calcifications. IMPRESSION: 1. There is unchanged alignment of the fracture of the distal metaphysis of the right radius. 2. There is a fracture of the ulnar styloid. Interpreted By: Donovan Spivey MD ENY BEDOLLA PA-C [address] [place], [address], [facility] 04/30/2021 13:56:36 Xr, Wrist, 2 View : [facility] [place] [address] [place] [address] Patient Name: SKYLER BAUTISTA Patient : 1940 Patient Ordering Provider: MARLENY BEDOLLA EXAM DATE: 05/28/2021 EXAM: XR RT WRIST, AP/LAT HISTORY: Followup of fracture. COMPARISON: 04/30/2021 FINDINGS: Again seen is a fracture of the distal metaphysis of the right radius. This is unchanged in alignment in comparison to the prior study. There is dorsal impaction and mild displacement. There is a displaced fracture of the ulnar styloid. No other fracture is seen. There are mild to moderate degenerative changes. There are prominent vascular calcifications. IMPRESSION: 1. There is unchanged alignment of the fracture of the distal metaphysis of the right radius. 2. There is a fracture of the ulnar styloid. Interpreted By: Donovan Spivey MD ENY BEDOLLA PA-C [address] 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 From Automated Load;Prov ider: Libby Velasquez;St atus: Active Not Available [facility] 6 09:10:38 Asthenia 40942530 Active 2015 From Automated Load;Prov ider: Leonardo Mccormack;S tatus: Active Not Available [facility] 6 09:10:38 Headache 40361095 Active 2015 From Automated Load;Prov ider: Leonardo Mccormack;S tatus: Active Not Available [facility] 6 09:10:38 Coronary arteriosc lerosis in [place] artery 39827897612 07 Active 2015 From Automated Load;Prov ider: Leonardo Mccormack;S tatus: Active Not Available [facility] 6 09:10:38 Chest pain 92011416 Active 2015 From Automated Load;Prov ider: Ha Hagan;Sta tus: Active Not Available [facility] 6 09:10:38 Type 2 diabetes mellitus without complicat ion 739289024 Active 2015 From Automated Load;Prov ider: Ha Hagan;Sta tus: Active Not Available [facility] 6 09:10:38 Progressi ve angina 630031037 Active 2015 From Automated Load;Prov ider: Ha Hagan;Sta tus: Active Not Available [facility] 6 09:10:38 Hypertens john disorder 81219576 Active 2015 From Automated Load;Prov ider: Ha Hagan;Sta tus: Active Not Available [facility] 6 09:10:39 Problem Notes None recorded. Procedures Surgical History Date Name Laterality Status Provider Name and Address Organization Details Recorded Time [facility] 17:15:27 [facility] 17:15:30 Heart Surgery completed [facility] 09/15/2017 17:15:37 [facility] 17:15:51 Imaging Results None recorded. Procedure Notes None recorded. Medical Equipment None Reported. Allergies Allergen ID Allergen Name Allergen Category Reaction Reaction Severity Criticality Documentation Date Start Date Code Code System Note Provider Name and Address Organization Details Recorded Time 442655 morphine sulfate medicatio n Not available Not available Not available 09/10/20162014 37294 RxNorm Comme nt: Creat ed By: Ric Khanna hari Date: 2014 2:07: 08 PM; Not Available Pending [facility] 6 02:59:47 596933 Macrobid medicatio n Not available Not available Not available 09/10/20162012 35048 1 RxNorm Comme nt: Creat ed By: Michelle Khanna hari Date: 2012 1:16: 18 PM; Not Available [facility] 6 04:55:10 Medications Name Sig Start Date [...] Updated DateTime 03/31/2021 160.02 cm 27.3 kg/m2 42700.22 g Celsa Andrewston [facility] 03/31/2021 13:36:09 Date Recorded Body height Body mass index (BMI) Body weight Provider Name and Address Organization Details Last Updated DateTime 04/09/2021 160.02 cm 27.1 kg/m2 90585.63 g Brenda Torres [facility] 04/09/2021 14:48:35 Date Recorded Body height Body mass index (BMI) Body weight Provider Name and Address Organization Details Last Updated DateTime 04/30/2021 160.02 cm 27.1 kg/m2 19175.63 g Celsa Mtz [facility] 04/30/2021 13:24:03 Date Recorded Body height Body mass index (BMI) Body weight Provider Name and Address Organization Details Last Updated DateTime 05/28/2021 160.02 cm 27.1 kg/m2 65453.63 g Celsa Rod [facility] 05/28/2021 13:24:49 Date Recorded Body height Body mass index (BMI) Body weight Provider Name and Address Organization Details Last Updated DateTime 06/10/2022 160.02 cm 27.1 kg/m2 99229.63 jana Salgado [facility] 06/10/2022 18:27:02 Social History Question Answer Notes LastModified by Organizat ion Details LastModified Time Tobacco Smoking Status Never Smoker Moo Davalos [facility] 09/15/2017 17:15:15 Marital Status petra Informatio [...] available 2016 17:15:02 Medical History Condition Response Diabetes Y Bleeding Disorder N Arthritis Y Blood Thinners Y Heart Conditions Y High Cholesterol Y Blood Clot N Liver Disease N Heart Attack ([place]) N Included as Review of Systems Y Hypertension Y Asthma N Kidney Disease Y Gynecological HistoryNo gynecological history recorded. Obstetrics History GPAL:G 0 P 0 0 0 0 Past Encounters Encounter ID Performer Location Encounter Start Date Encounter Closed Date Diagnosis/Indication Diagnosis SNOMED-CT Code Diagnosis ICD10 Code Diagnosis IMO Codes Diagnosis Note [id number] LIBBY VELASQUEZ MD [facility] [address] [place] [address] ,[place] [address] 09/15/2017 14:34:03 09/21/2017 12:06:33 Recurrent urinary tract infection 233654402 N39.0 Cystic dis ease of kidney 480208683 Q61.9 [id number] LIBBY VELASQUEZ MD [facility] [address] [address] 07/12/2019 14:05:14 08/07/2019 14:32:40 Urinary tract infectious disease 21504523 N39.0 Cyst of kidney 407067907 N28.1 [id number] LIBBY VELASQUEZ MD [facility] [address] ,[place] [address] 02/05/2021 15:05:46 02/06/2021 15:50:44 Recurrent urinary tract infection 941750728 N39.0 Multiple renal cysts 253 171615 N28.1 [id number] MARLENY BEDOLLA PA-C [facility] [address] [place] [address] 03/24/2021 13:16:15 03/24/2021 14:18:29 Closed fracture of distal end of right radius 8243855100 8793563 S52.501A DOI: 03/16/21 - mildly displaced distal radius fracture and displaced ulnar styloid fracture [id number] MARLENY BEDOLLA PA-C [facility] [address] [place] [address] 03/31/2021 13:30:25 03/31/2021 13:55:49 Closed fracture of distal end of right radius 6948125525 1777294 S52.501A DOI: 03/16/21 - mildly displaced distal radius fracture and displaced ulnar styloid fracture [id number] MARLENY BEDOLLA PA-C [facility] [address] [place] [address] 04/09/2021 14:15:17 04/09/2021 15:16:39 Closed fracture of distal end of right radius 3070913845 9816571 S52.501A DOI: 03/16/21 - mildly displaced distal radius fracture and displaced ulnar styloid fracture [id number] MARLENY BEDOLLA PA-C [facility] [address] [place] [address] 04/30/2021 13:02:15 04/30/2021 13:54:16 Closed fracture of distal end of right radius 1389974192 1312346 S52.501A DOI: 03/16/21 - mildly displaced distal radius fracture and displaced ulnar styloid fracture [id number] MARLENY BEDOLLA PA-C [facility] [address] [place] [address] 05/28/2021 13:19:59 05/28/2021 14:27:20 Closed fracture of distal end of right radius 5777360715 3189996 S52.501A DOI: 03/16/21 - mildly displaced distal radius fracture and displaced ulnar styloid fracture [id number] LIBBY VELASQUEZ MD [facility] [address] [place] [address],[place] [address] 06/10/2022 15:14:25 06/23/2022 11:14:33 Urinary tract infectious disease 45515267 N39.0 Cyst of kidney 596481843 N28.1 Health Concerns Section Related Observation LastModified by Organization Detai ls LastModified Time None Recorded Concern Status LastModified by Organization Details LastModified Time None Recorded Advance Directives Directive None Recorded Payers Insurance Date Sequence Insurance Name Policy Number Policy Rosen Covered Member ID Rosen Member ID Guarantor Name 01/15/2025 2 [employer] (MEDICARE SUPPLEMENT) Skyler Earl Jan [id number] Skyler Earl Jan 01/15/2025 1 [place] Skyler Ocampolivan [id number] Skyler Earl Jan Notes Date Note Type Note Provider Name and Address Organization Details Recorded Time 03/31/2021 text/html Ms. Bautista returns today for fracture alignment recheck with XR in cast. She reports improvement in pain since last visit and compliance with casting restrictions. Primary Care Physician: Dr. Moeller Hand dominance: Right Location: Right Wrist Pain level: Date of injury:03/16/21 Previous upper extremity surgery? No Currently employed?: Retired MARLENY BEDOLLA PA-C [address] [place] [address], [address], [facility] 04/01/2021 13:35:20 04/09/2021 text/html Patient returns today for fracture alignment recheck. She denies pain. Primary Care Physician: Dr. Moeller Hand dominance: Right Location: Right Wrist Pain level: 0 /10 Date of injury:03/16/21 Previous upper extremity surgery? No Currently employed?: Retired MARLENY BEDOLLA PA-C [address] [place] [address], [address], [facility] 04/14/2021 08:42:55 04/30/2021 text/html Patient returns today for fracture recheck. She reports continued compliance with casting restrictions and denies pain at this time. Primary Care Physician: Dr Moeller Hand dominance: Right Location: Right Wrist Pain level: 0 /10 Date of injury: 03/16/2021 Duration: 6 week(s) Recent Surgery: No Previous upper extremity surgery? No Currently employed?: Retired MARLENY BEDOLLA PA-C [address] [place] [address], [address], [facility] 05/05/2021 13:57:51 05/28/2021 text/html Patient returns today for fracture recheck. She denies pain and is pleased with significant improvement in function. Primary Care Physician: Dr Moeller Hand dominance: Right Location: Right Wrist Pain level: 0 /10 Date of injury: 03/16/2021 Duration: 10 week(s) Recent Surgery: No Previous upper extremity surgery? No Currently employed?: Retired MARLENY BEDOLLA PA-C [address] [place] [address], [address], [facility] 05/28/2021 14:17:52 06/10/2022 text/html 81-year-old female in the office for follow-up evaluation of recurrent urinary infections. She has history of renal cystic disease. She has bilateral back pain, left equal to right. She voids 2-3 times daily with nocturia up to 3 times nightly. She denies hesitancy. She has occasional dysuria.She has been seeing Dr. Macdonald at urology. LIBBY VELASQUEZ MD [address] [place] [address] [place], [address], [place] [facility] 06/21/2022 15:38:34 OBGyn Episode No OBEpisode recorded.
--- OUTSIDE RECORDS SUMMARY | 2025-07-22 07:49 | XMS_ITS | Encounter Summary ---
Author Organization [employer] ([place], [place], [place], [place]) Address [address] [place] [address] Care Team Providers Care Annealer Helper Name Role Phone Jay Howell MD Primary Care Provider [phone] Encounter Details Date Type Department Care Team (Late st Contact Info) Description 03/03/2021 Transcribed Document [facility] Family Medicine [facility] [place] [address] ProviderJessie MD [address] [place] [address] [phone] Social History Tobacco Use Types Packs/Day Years [...] on filedocumented in this encounter Care Teams Annealer Helper Relationship Specialty Start Date End Date Jay Howell MD [address] [place] [phone] PCP - General Emergency Medicine 11/12/23 documented as of this encounter
--- OUTSIDE RECORDS SUMMARY | 2025-07-22 07:49 | XMS_ITS | Encounter Summary ---
Author Organization [employer] ([place], [place], [place], [place]) Address [address] [place] [address] Care Team Providers Care Plasma Center Nurse Name Role Phone Jay Howell MD Primary Care Provider [phone] Encounter Details Date Type Department Care Team (Late st Contact Info) Description 03/03/2021 Transcribed Document [facility] [place] [address] [place] [address] ProviderJessie MD [address] [place] [address] [phone] Social History Tobacco Use Types Packs/Day Years [...] 03/03/2021 5:06 PM CDT Electronically signed by [facility] Conversion Manager Delivery Cerner at 02/04/2023 2:08 PM CDT documented in this encounter Plan of Treatment Not on file documented as of this encounter Visit Diagnoses Not on filedocumented in this encounter Care Teams Plasma Center Nurse Relationship Specialty Start Date End Date Jay Howell MD [address] [place] [phone] PCP - General Emergency Medicine 11/12/23 documented as of this encounter
--- OUTSIDE RECORDS SUMMARY | 2025-07-22 07:49 | XMS_ITS | Encounter Summary ---
Author Organization [employer] ([place], [place], [place], [place]) Address [address] [place] [address] Care Team Providers Care Electrician Ship Name Role Phone Jay Howell MD Primary Care Provider [phone] Encounter Details Date Type Department Care Team (Late st Contact Info) Description 03/03/2021 Transcribed Document [facility] [place] [facility] [place] [address] ProviderJessie MD [address] [place] [address] [phone] Social History Tobacco Use Types Packs/Day Years [...] - Non - Urgent Tracking Group : [facility] ED Viri Gonsales RN [...] pox/Shingles, Measles, Mumps Tuberculosis Symptoms : None Viir Gonsales RN - 03/03/2021 16:04 EDT Vital [...] 16:07:23 EDT) Problems(Active) Apnea, sleep (SNOMED CT :858019397 ) Name of Problem: Apnea, sleep ; Recorder: JUAN LUIS GIL RN; Confirmation: Confirmed ; Classification: Medical ; Code: [id number] ; Contributor System: PowerChart ; Last Updated: 11/12/2014 10:12 EST ; Life Cycle Date: 11/12/2014 ; Life Cycle Status: Active ; Vocabulary: SNOMED CT Arthritis (SNOMED CT :0992309 ) Name of Problem: Arthritis ; Recorder: KENYON CHAMBERS RN; Confirmation: Confirmed ; Classification: Medical ; Code: 7825010 ; Contributor System: PowerChart ; Last Updated: 04/10/2016 8:04 EDT ; Life Cycle Date: 08/13/2013 ; Life Cycle Status: Active ; Vocabulary: SNOMED CT Atrial fibrillation with RVR (SNOMED CT :9661318292 ) Name of Problem: Atrial fibrillation with RVR ; Recorder: SANG RICO APRN; Confirmation: Confirmed ; Classification: Medical ; Code: 4477656101 ; Contributor System: PowerChart ; Last Updated: 04/10/2016 8:05 EDT ; Life Cycle Date: 04/10/2016 ; Life Cycle Status: Active ; Responsible Provider: SANG RICO APRN; Vocabulary: SNOMED CT Blood clot (SNOMED CT :195181161 ) Name of Problem: Blood clot ; Recorder: KENYON CHAMBERS RN; Confirmation: Confirmed ; Classification: Patient Stated ; Code: 691389815 ; Contributor System: PowerChart ; Last Updated: [...] Vocabulary: Patient Care Chest pain (SNOMED CT :46723078 ) Name of Problem: Chest pain ; Recorder: SANG RICO APRN; Confirmation: Complaint of ; Classification: Medical ; Code: 27603436 ; Contributor System: PowerChart ; Last Updated: 04/10/2016 8:05 EDT ; Life Cycle Status: Active ; Responsible Provider: SANG RICO APRN; Vocabulary: SNOMED CT Chronic anticoagulation (SNOMED CT :129862013 ) Name of Problem: Chronic anticoagulation ; Recorder: SANG RICO APRN; Confirmation: Confirmed ; Classification: Medical ; Code: 255161541 ; Contributor System: PowerChart ; Last Updated: 04/10/2016 8:05 EDT ; Life Cycle Date: 04/10/2016 ; Life Cycle Status: Active ; Responsible Provider: SANG RICO APRN; Vocabulary: SNOMED CT Clotting disorder (SNOMED CT :197897899 ) Name of Problem: Clotting disorder ; Recorder: KENYON CHAMBERS RN; Confirmation: Confirmed ; Classification: Patient Stated ; Code: 936379466 ; Contributor System: PowerChart ; Last Updated: 03/28/2014 19:29 EDT ; Life Cycle Date: 08/13/2013 ; Life Cycle Status: Active ; Vocabulary: SNOMED CT COPD (SNOMED CT :26488009 ) Name of Problem: COPD ; Recorder: KENYON CHAMBERS RN; Confirmation: Confirmed ; Classification: Medical ; Code: 77530141 ; Contributor System: PowerChart ; Last Updated: 04/10/2016 8:03 EDT ; Life Cycle Date: 08/13/2013 ; Life Cycle Status: Active ; Vocabulary: SNOMED CT Coronary artery disease (SNOMED CT :6622529758 ) Name of Problem: Coronary artery disease ; Recorder: KENYON CHAMBERS RN; Confirmation: Confirmed ; Classification: Medical ; Code: 1638172644 ; Contributor System: PowerChart ; Last Updated: 04/10/2016 8:03 EDT ; Life Cycle Date: 08/13/2013 ; Life Cycle Status: Active ; Vocabulary: SNOMED CT Diabetes mellitus (SNOMED CT :901462007 ) Name of Problem: Diabetes mellitus ; Recorder: KENYON CHAMBERS RN; Confirmation: Confirmed ; Classification: Medical ; Code: 444293442 ; Contributor System: PowerChart ; Last Updated: 04/10/2016 8:04 EDT ; Life Cycle Date: 08/13/2013 ; Life Cycle Status: Active ; Vocabulary: SNOMED CT Emphysema (SNOMED CT :211638410 ) Name of Problem: Emphysema ; Recorder: JUAN LUIS GIL RN; Confirmation: Confirmed ; Classification: Medical ; Code: 983846315 ; Contributor System: PowerChart ; Last Updated: 11/12/2014 10:11 EST ; Life Cycle Date: 11/12/2014 ; Life Cycle Status: Active ; Vocabulary: SNOMED CT GERD - Gastro-esophageal reflux disease (SNOMED CT :6865576844 ) Name of Problem: GERD - Gastro-esophageal reflux disease ; Recorder: KENYON CHAMBERS RN; Confirmation: Confirmed ; Classification: Medical ; Code: 8038821836 ; Contributor System: PowerChart ; Last Updated: [...] Patient Care High blood pressure (SNOMED CT :92129522 ) Name of Problem: High blood pressure ; Recorder: KENYON CHAMBERS RN; Confirmation: Confirmed ; Classification: Medical ; Code: 79289068 ; Contributor System: PowerChart ; Last Updated: 04/10/2016 8:03 EDT ; Life Cycle Date: 08/13/2013 ; Life Cycle Status: Active ; Vocabulary: SNOMED CT History of obstructive sleep apnea (IMO :84545274 ) Name of Problem: History of obstructive sleep apnea ; Recorder: SYSTEM, SYSTEM; Confirmation: Confirmed ; Classification: Medical ; Code: 67339781 ; Last Updated: 08/25/2020 18:21 EST ; Life Cycle Date: 08/25/2020 ; Life Cycle Status: Active ; Vocabulary: IMO Hx of pulmonary embolus (SNOMED CT :369810184 ) Name of Problem: Hx of pulmonary embolus ; Recorder: SANG RICO APRN; Confirmation: Confirmed ; Classification: Medical ; Code: 624318907 ; Contributor System: PowerChart ; Last Updated: 04/10/2016 8:05 EDT ; Life Cycle Date: 04/10/2016 ; Life Cycle Status: Active ; Responsible Provider: SANG RICO APRN; Vocabulary: SNOMED CT Hyperlipidemia (SNOMED CT :48003311 ) Name of Problem: Hyperlipidemia ; Recorder: KENYON CHAMBERS RN; Confirmation: Confirmed ; Classification: Medical ; Code: 15453436 ; Contributor System: saperatecChart ; Last Updated: 04/10/2016 8:03 EDT ; Life Cycle Date: 08/13/2013 ; Life Cycle Status: Active ; Vocabulary: SNOMED CT Multiple renal cysts (SNOMED CT :395317197 ) Name of Problem: Multiple renal cysts ; Recorder: KENYON CHAMBERS RN; Confirmation: Confirmed ; Classification: Medical ; Code: 616172862 ; Contributor System: saperatecChart ; Last Updated: 04/10/2016 8:04 EDT ; Life Cycle Date: 08/13/2013 ; Life Cycle Status: Active ; Vocabulary: SNOMED CT Stented coronary artery (SNOMED CT :6670150698 ) Name of Problem: Stented coronary artery ; Recorder: KENYON CHAMBERS RN; Confirmation: Confirmed ; Classification: Medical ; Code: 8672293255 ; Contributor System: saperatecChart ; Last Updated: 04/10/2016 8:03 EDT ; Life Cycle Date: 08/13/2013 ; Life Cycle Status: Active ; Vocabulary: SNOMED CT Diagnoses(Active) Hip pain-swelling Date: 03/03/2021 ; Diagnosis Type: Reason For Visit ; Confirmation: Complaint of ; Clinical Dx: Hip pain-swelling ; Classification: Medical ; Clinical Service: Emergency medicine ; Code: PNED ; Probability: 0 ; Diagnosis Code: [id number] ED Height and Weight Height Source : Stated Height Entry Format : [place] Height, Feet : 5 ft(Converted to: 152 cm, 60 Inch) Height, Inches : 3 Inch(Converted to: 0 ft 3 Inch, 7.62 cm) Clinical Height : 160.02 cm Weight Source, ED : Critical estimated dosing weight Weight Entry Format : [place] Weight, Pounds : 154 lb Clinical Dosing Weight : 70 kg Body Surface Area (BSA) : 1.73 m2 Body Mass Index : 27.3 kg/m2 (HI) [place] Body Weight (IBW) : 52.02 kg Viri Gonsales RN - 03/03/2021 16:04 EDT documented in this encounter Plan of Treatment Not on file documented as of this encounter Visit Diagnoses Not on filedocumented in this encounter Care Teams Electrician Ship Relationship Specialty Start Date End Date Jay Howell MD [address] [place] [phone] PCP - General Emergency Medicine 11/12/23 documented as of this encounter
--- OUTSIDE RECORDS SUMMARY | 2025-07-22 07:49 | XMS_ITS | Encounter Summary ---
Author Organization [employer] ([place], [place], [place], [place]) Address [address] [place] [address] Care Team Providers Care Caregiver Assisted Living Name Role Phone Jay Howell MD Primary Care Provider [phone] Encounter Details Date Type Department Care Team (Late st Contact Info) Description 03/03/[address] [facility] [place] Family Medicine [address] [place] [address] ProviderJessie MD [address] [place], [place] [phone] Social History Tobacco Use Types Packs/Day Years [...] : Low risk (0) [place] Interventions : [place] precautions for safety used Marek Sanford Rn - 03/03/2021 16:24 EDT documented in this encounter Plan of Treatment Not on file documented as of this encounter Visit Diagnoses Not on filedocumented in this encounter Care Teams Caregiver Assisted Living Relationship Specialty Start Date End Date Jay Howell MD [address] [place] [phone] PCP - General Emergency Medicine 11/12/23 documented as of this encounter
--- OUTSIDE RECORDS SUMMARY | 2025-07-22 07:49 | XMS_ITS | Encounter Summary ---
Author Organization [employer] ([place], [place], [place], [place]) Address [address] [place] [address] Care Team Providers Care Fill Manager Name Role Phone Jay Howell MD Primary Care Provider [phone] Encounter Details Date Type Department Care Team (Late st Contact Info) Description 02/13/2021 Transcribed Document [facility] [place] Medicine [address] [place] [address] ProviderJessie MD [address] [place], [place] [phone] Social History Tobacco Use Types Packs/Day Years [...] counseling. ??? Working with a diet and nutritionist public health (dietitian) to help create a food plan [...] for some people. General instructions ??? Take xuuu-qrv-dvetuqs and prescription medicines and supplements only as [...] provider. Document Revised: 09/26/2018 Document Reviewed: 09/26/2018 [employer] Patient Education ? 2020 [employer]. Segura's Esophagus Segura's esophagus occurs when the [...] Tomatoes and foods made with tomatoes. ? Olar or spicy foods. ? Chocolate and peppermint. ??? Do not drink alcohol. General instructions ??? Take lhva-dmv-zntssug and prescription medicines only as told by [...] provider. Document Revised: 01/29/2019 Document Reviewed: 01/29/2019 [employer] Patient Education ? 2020 [employer]. ESOPHAGOGASTRODUODENOSCOPY Care After Read the instructions outlined [...] eating solid foods. General instructions ??? Take teaq-rsz-hssoaul and prescription medicines only as told by [...] provider. Document Revised: 01/01/2019 Document Reviewed: 01/23/2017 [employer] Patient Education ? 2020 [employer] Gastritis, Adult Gastritis is inflammation of [...] medicines. These include steroids, antibiotics, and some zbxt-qfd-yodjfxm medicines, such as aspirin or ibuprofen. ??? [...] these instructions at home: Medicines ??? Take iisg-awf-bgwjoxs and prescription medicines only as told by [...] Reviewed: 02/20/2019 Elsevier Patient Education ? 2020 [employer] Colonoscopy, Adult A colonoscopy is a [...] including vitamins, herbs, eye drops, creams, and oxwn-jsn-kcpxlit medicines. ??? Any problems you or family [...] tells you to take them. ??? Taking jjip-jyk-wdxtegp medicines, vitamins, herbs, and supplements. General instructions [...] provider. Document Revised: 04/25/2020 Document Reviewed: 04/25/2020 [employer] Patient Education ? 2020 [employer] Colon Polyps Polyps are tissue growths [...] provider. Document Revised: 01/18/2019 Document Reviewed: 01/18/2019 [employer] Patient Education ? 2020 [employer]. Electronically signed by Gayle Finnegan Conversion Balancing Machine Set Up Worker Cerner at 02/04/2023 1:57 PM CDT documented in this encounter Plan of Treatment Not on file documented as of this encounter Visit Diagnoses Not on filedocumented in this encounter Care Teams Fill Manager Relationship Specialty Start Date End Date Jay Howell MD [address] [place] [phone] PCP - General Emergency Medicine 11/12/23 documented as of this encounter
--- OUTSIDE RECORDS SUMMARY | 2025-07-22 07:49 | XMS_ITS | Encounter Summary ---
Author Organization [employer] ([place], [place], [place], [place]) Address [address] [place] [address] Care Team Providers Care Tar Pot Worker Name Role Phone Jay Howell MD Primary Care Provider [phone] Encounter Details Date Type Department Care Team (Late st Contact Info) Description 02/13/2021 Transcribed Document [facility] [place] [address] [place] [address] ProviderJessie MD [address] [place], [place] 9038[address] Social History Tobacco Use Types Packs/Day Years Used Date Smoking Tobacco: Never Assessed Comments Unknown Sex and Gender Information Value Date Recorded Sex Assigned at Not on file Legal Sex Female 7:30 PM CDT Gender Identity Not on file Sexual Orientation Not on file documented as of this encounter Miscellaneous Notes * Cerner Conversion Note - Jessie ProviderMD - 02/13/2021 11:43 AM CDT [facility] Endo PACU Summary Primary Physician: FABY GRIMM MD Finalized Date/Time: 02/13/21 12:32:03 Pt. Name: SKYLER MONTOYAO.B./Sex: 1940 Female Med Rec #: [id number] Physician: FABY GRIMM MD Financial #: [id number] Pt. Type: O Room/Bed: END/ Admit/Disch: 02/13/21 09:44:00 - Institution: [facility] Endo PACU Case Times Entry 1 In PACU I 02/13/21 12:07:00 Ready for PACU 02/13/21 12:31:00 Discharge Discharge from PACU 02/13/21 12:31:00 I Last Modified By: Roselia Urbano, Rn 02/13/21 12:32:01 Finalized By: Roselia Urbano, Rn Document Signatures Signed By: Roselia Urbano Rn 02/13/21 12:32 Electronically signed by Sivan [facility] Conversion Circular Clerk Cerner at 02/04/2023 2:17 PM CDT documented in this encounter Plan of Treatment Not on file documented as of this encounter Visit Diagnoses Not on filedocumented in this encounter Care Teams Tar Pot Worker Relationship Specialty Start Date End Date Jay Howell MD [address] [place] [phone] PCP - General Emergency Medicine 11/12/23 documented as of this encounter
--- OUTSIDE RECORDS SUMMARY | 2025-07-22 07:49 | XMS_ITS | Encounter Summary ---
Author Organization [employer] ([place], [place], [place], [place]) Address [address] [place] [address] Care Team Providers Care Otolaryngology Surgeon Name Role Phone Jay Howell MD Primary Care Provider [phone] Encounter Details Date Type Department Care Team (Late st Contact Info) Description 03/03/2021 Transcribed Document [facility] [place] [address] [place] [address] ProviderJessie MD [address] [place] [address] Social History Tobacco Use Types Packs/Day Years Used Date Smoking Tobacco: Never Assessed Comments Unknown Sex and Gender Information Value Date Recorded Sex Assigned at Not on file Legal Sex Female 7:30 PM CDT Gender Identity Not on file Sexual Orientation Not on file documented as of this encounter Miscellaneous Notes * Cerner Conversion Note - Historical ProviderMD - 03/03/2021 3:59 PM CDT [place] Suicide Severity Rating Scale (C-SSRS) Entered On: 03/03/2021 16:25 EDT Performed On: 03/03/2021 16:24 EDT by Marek Sanford Rn [place] Suicide Severity Rating Scale (C-SSRS) CSSRS Past Month Wish to be : No CSSRS Past Month Suicidal Thoughts : No CSSRS Lifetime Suicide Behavior : No Suicide Severity Rating Score : 0 Suicide Severity Rating : No Additional Care Required at this time Marek Sanford Rn - 03/03/2021 16:24 EDT Electronically signed by Abel Finnegan Conversion Induction Coordination Engineer Cerner at 02/04/2023 2:10 PM CDT documented in this encounter Plan of Treatment Not on file documented as of this encounter Visit Diagnoses Not on filedocumented in this encounter Care Teams Otolaryngology Surgeon Relationship Specialty Start Date End Date Jay Howell MD [address] [place] [phone] PCP - General Emergency Medicine 11/12/23 documented as of this encounter
--- OUTSIDE RECORDS SUMMARY | 2025-07-22 07:49 | XMS_ITS | Encounter Summary ---
Author Organization [facility] Address [address] [place] [address] Care Team Providers Care Supervisor Inspecting Name Role Phone aJy Howell MD Primary Care Provider Encounter Details Date Type Department Care Team (Late st Contact Info) Description 01/20/2024 Ophth Exam [facility] [address] [place] [address] Joselito Garza MD [address] [place] [address] Social History Tobacco Use Types [...] slept in a custodial (including now)? No 01/23/2024 CAGE ASSESSMENT Answer [...] drink first t kathleen in the morning (EYE-FACTORY REPRESENTATIVE) to steady your nerves or to get rid of a hangover? 0 01/21/2024 CAGE Questionnaire Score 0 024 Utilities Answer Date Recorded In the past 12 months has th e [employer] gas, oil, or water company threatened to [...] documented as of this encounter Care Teams Supervisor Inspecting Relationship Specialty Start Date End Date Jay Howell MD [address] [place] [address] PCP - General 03/08/21 documented as of this encounter
--- OUTSIDE RECORDS SUMMARY | 2025-07-22 07:49 | XMS_ITS | Clinical Summary ---
Author Organization [employer] [facility] Address [address] [place] [address] Care Team Providers Care Executive Search Consultant Name Role Phone Jay Howell MD Primary Care Provider [phone] Allergies Active Allergy Reactions Criticality Noted Date Comments Morphine And Codeine Other (See Comments),Unknown - Low Severity,Unknown (See Comments) Low 2014 Listed per [facility] MAR. Nitrofurantoin Unknown - Low Severity [...] 03/23/2024 History of pulmonary embolus (PE) 03/14/2024 jail current use of anticoagulant Fatigue 03/14/2024 Atopic [...] of chest/PE protocol. Patient was sent to [facility] radiology department for CT scan today. - [...] new referral to a cardiovascular surgeon at [facility]. She reports she has seen Dr. Mickey Alcantara in the past. Coronary artery disease invo lving coronary bypass graft of chitina heart without angina pectoris 04/28/2023 Assessment & Plan (09/30/2023 4:12 PM EST): She is on Statin, BB,CCB, ARB, ASA, Ranexa, and Warfarin. Continue current medication. Assessment & Plan (05/02/2023 5:03 PM EDT): She has a known history of coronary artery disease. She has denied any chest pain. Her last heart catheterization was November 25, 2022 at [facility] [place] showing: -last [facility] 11/25/2022- A. 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
--- OUTSIDE RECORDS SUMMARY | 2025-07-22 07:49 | XMS_ITS | Encounter Summary ---
[facility] Organization [facility] Address [address] [place] [address] Care Team Providers Care Distribution Center Associate Name Role Phone Jay Howell MD Primary Care Provider [phone] Encounter Details Date Type Department Care Team (Late st Contact Info) Description 06/08/2012 Conversion Encounter [facility] HISTORICAL CONV [address] [place] [address] Interface, See Report Social History [...] Amado M.D. ' Kailey Ruff APRN [address] [facility], [address] [place] [address] [employer] NEW PATIENT EVALUATION SKYLER MONTOYA : 1940 DATE OF VISIT: 06/08/2012 REFERRING PHYSICIAN: Dr. Avtar Moeller PROBLEMS: 1. History of pulmonary embolus. a. Pulmonary embolus diagnosed February 2011 at [facility]. b. Details incomplete. 2. Warfarin therapy. 3. [...] was evidently diagnosed by CT angiogram at [facility]; I do not have records from this. [...] to Macrodantin. SOCIAL HISTORY: She lives in [place] with her . She is accompanied today by her kyjougnr-jk-kjv who is also a patient of our practice. 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 She is not working now. She does [...] dryness and this is managed by an phd intern. She has the hematuria and pain with [...] repeat her anticardiolipin antibody since this can changer fixer time. If the anticardiolipin antibody is persistently [...] about her diagnosis of pulmonary embolus at [facility] and any additional testing done at that [...] available. Tana Rivera M.D.* TRUNG/rxaldarlene Doc. ID [id number] Rev. #0 cc: Avtar Moeller M.D.* Dr. Etienne De La Paz Page 4 of 4 Page 1 of 4 Authenticated and Edited by TANA RIVERA M.D. On 06/09/12 3:24:05 PM * Interface, See Report - 06/08/2012 4:16 PM EDT Zurdo Schuler M.D. ' Tana Rivera M.D. ' Rosalio Marie M.D. ' STEPHNAIE Quezada M.D. ' Heath Amado M.D. ' Kailey Ruff APRN [address] [place] [address], [place] [address] [place] [address] [employer] OFFICE NOTE SKYLER MONTOYA : 1940 DATE [...] medicines and I will try to get high school social studies tutor to give her some help with this. Also, I will speak to Dr. De La Paz about this and I have a call into his office. Tana Rivera M.D.* TRUNG/ruperto Doc. ID [id number] Rev. #0 cc: Etienne De La Paz Jr., M.D.* Avtar Moeller M.D.* Page 2 of 2 Page 1 of 2 Authenticated by TANA RIVERA M.D. On 07/07/2012 04:36:41 PM * Interface, See Report - 06/08/2012 4:16 PM EDT Zurdo Schuler M.D. ' Tana Rivera M.D. ' Rosalio Marie M.D. ' STEPHANIE Quezada M.D. ' Heath Amado M.D. ' Kailey Ruff APRN [address] [facility], [address] [place] [id number] [employer] OFFICE NOTE SKYLER MONTOYA : 1940 DATE [...] antibodies. Tana Rivera M.D.* RME/rxalw Doc. ID [id number] Rev. #0 cc: Avtar Moeller M.D.* Page 2 of 2 Page 1 of 2 Authenticated by TANA RIVERA M.D. On 08/15/2012 09:44:06 AM * Interface, See Report - 06/08/2012 4:16 PM EDT Zurdo Schuler M.D. ' Tana Rivera M.D. ' Rosalio Marie M.D. ' STEPHANIE Quezada M.D. ' David Calvillo M.D. ' Heath Amado M.D. ' Kailey Ruff APRN [address] [place] [address] [place] [address] [employer] OFFICE NOTE SKYLER MONTOYA : 1940 DATE [...] develop. Tana Rivera M.D.* RMEmiliano/rxalw Doc. ID [id number] Rev. #0 cc: Avtar Moeller M.D.* Jorje Watters M.D.* SKYLER MONTOYA : 1940 DATE OF VISIT: 04/26/2013 Page 2 of 2 Page 1 of 2 DOCUMENT CODE :[facility]: PHYSICIAN CODE :[id number]: Authenticated by TANA RIVERA M.D. On 05/04/2013 10:54:04 AM * Interface, See Report - 06/08/2012 4:16 PM EDT Zurdo Schuler M.D. ' Tana Rivera M.D. ' Rosalio Marie M.D. ' STEPHANIE Quezada M.D. ' David Calvillo M.D. ' Heath Amado M.D. ' Kailey Ruff APRN [facility], [place] [address] [place] [address] [facility] OFFICE NOTE SKYLER MONTOYA : 1940 DATE [...] develop. Tana Rivera M.D.* RMEmiliano/rxalw Doc. ID [id number] Rev. #0 cc: Avtar Moeller M.D.* Etienne De La Paz Jr., M.D.* Jorje Watters M.D.* SKYLER MONTOYA : 1940 DATE OF VISIT: 07/12/2013 Page 2 of 2 Page 1 of 2 DOCUMENT CODE :[facility]: PHYSICIAN CODE :[id number]: Authenticated by TANA RIVERA M.D. On 07/16/2013 01:57:36 PM documented in this encounter Plan of Treatment Not on file documented as of this encounter Visit Diagnoses Not on filedocumented in this encounter Care Teams Distribution Center Associate Relationship Specialty Start Date End Date Jay Howell MD [address] [place] [address] PCP - General Emergency Medicine 04/28/23 documented as of this encounter
--- OUTSIDE RECORDS SUMMARY | 2025-07-22 07:49 | XMS_ITS | Encounter Summary ---
Author Organization [employer] ([place], [place], [place] Address [address] [place] [address] Care Team Providers Care Gui Developer Name Role Phone Jay Howell MD Primary Care Provider [phone] Encounter Details Date Type Department Care Team (Late st Contact Info) Description 10/13/2020 Transcribed Document [facility] [place] [address] [place] [address] ProviderJessie MD [address] [place] [address] Social History Tobacco Use Types Packs/Day Years Used Date Smoking Tobacco: Never Assessed Comments Unknown Sex and Gender Information Value Date Recorded Sex Assigned at Not on file Legal Sex Female 7:30 PM CDT Gender Identity Not on file Sexual Orientation Not on file documented as of this encounter Miscellaneous Notes * [employer] Conversion Note - Historical MD Alpa - 10/13/2020 6:59 PM TRAVELING STOREKEEPER Patient: SKYLER MONTOYA Age: 79 Years Sex: [...] results RTC prn Electronically signed by Sivan [facility] Conversion Primary Care Sales Representative Cerner at 02/04/2023 2:05 PM CDT documented in this encounter Plan of Treatment Not on file documented as of this encounter Visit Diagnoses Not on filedocumented in this encounter Care Teams Gui Developer Relationship Specialty Start Date End Date Jay Howell MD [address] [place] [phone] PCP - General Emergency Medicine 11/12/23 documented as of this encounter
--- OUTSIDE RECORDS SUMMARY | 2025-07-22 07:50 | XMS_ITS | Encounter Summary ---
Author Organization [employer] ([place], [place], [place], [place]) Address [address] [place] [address] Care Team Providers Care Compensation And Benefits Analyst Name Role Phone Jay Howell MD Primary Care Provider [phone] Encounter Details Date Type Department Care Team (Late st Contact Info) Description 08/29/2020 Transcribed Document [facility] [place] [facility] [address] [place] [address] ProviderJessie MD [address] [place] [address] Social History Tobacco Use Types Packs/Day Years Used Date Smoking Tobacco: Never Assessed Comments Unknown Sex and Gender Information Value Date Recorded Sex Assigned at Not on file Legal Sex Female 7:30 PM CDT Gender Identity Not on file Sexual Orientation Not on file documented as of this encounter Miscellaneous Notes * [employer] Conversion Note - Jessie Yuen MD - 08/29/2020 8:24 AM HVAC ESTIMATOR Patient: SKYLER MONTOYA Age: 79 years Sex: Female : 1940 Associated Diagnoses: None Author: SLICK BRADLEY, [facility] Ms. Montoya is 79 yo [...] on filedocumented in this encounter Care Teams Compensation And Benefits Analyst Relationship Specialty Start Date End Date Jay Howell MD [address] [place] [phone] PCP - General Emergency Medicine 11/12/23 documented as of this encounter
--- OUTSIDE RECORDS SUMMARY | 2025-07-22 07:50 | XMS_ITS | Encounter Summary ---
Author Organization [employer] ([place], [place], [place], [place]) Address [address] [place] [address] Care Team Providers Care Barge Loader Name Role Phone Jay Howell MD Primary Care Provider [phone] Encounter Details Date Type Department Care Team (Late st Contact Info) Description 12/20/2018 Transcribed Document [facility] [place] [place] [address] [place] [address] ProviderJessie MD [address] [place] [address] Social History Tobacco Use Types Packs/Day Years Used Date Smoking Tobacco: Never Assessed Comments Unknown Sex and Gender Information Value Date Recorded Sex Assigned at Not on file Legal Sex Female 7:30 PM CDT Gender Identity Not on file Sexual Orientation Not on file documented as of this encounter Miscellaneous Notes * [employer] Conversion Note - Historical ProviderMD - 12/20/2018 9:55 PM REQUIREMENTS MANAGER Pain Assessment Entered On: 12/21/2018 4:53 EST [...] on filedocumented in this encounter Care Teams Barge Loader Relationship Specialty Start Date End Date Jay Howell MD [address] [place] [phone] PCP - General Emergency Medicine 11/12/23 documented as of this encounter
--- OUTSIDE RECORDS SUMMARY | 2025-07-22 07:50 | XMS_ITS | Encounter Summary ---
Author Organization [employer] ([place], [place], [place], [place]) Address [address] [place] [address] Care Team Providers Care Plastic Worker Name Role Phone Jay Howell MD Primary Care Provider [phone] Encounter Details Date Type Department Care Team (Late st Contact Info) Description 12/20/2018 Transcribed Document [facility] [place] Family Medicine [address] [place] [address] ProviderJessie MD [address] [place] [address] Social History Tobacco Use Types Packs/Day Years Used Date Smoking Tobacco: Never Assessed Comments Unknown Sex and Gender Information Value Date Recorded Sex Assigned at Not on file Legal Sex Female 7:30 PM CDT Gender Identity Not on file Sexual Orientation Not on file documented as of this encounter Miscellaneous Notes * [employer] Conversion Note - Historical ProviderMD - 12/20/2018 11:57 AM J2EE ARCHITECT Pre Procedure Adult Entered On: 12/20/2018 12:01 EST Performed On: 12/20/2018 11:57 EST by VANCE BELTRAN RN Height and Weight, Clinical Dosing Height Source : Stated Height Entry Format : [place] Height, Feet : 5 ft(Converted to: 152 cm, 60 Inch) Height, Inches : 3 Inch(Converted to: 0 ft 3 Inch, 7.62 cm) Clinical Height : 160.02 cm Weight Source : Standing scale Weight Entry Format : [place] Clinical Dosing Weight : 71.82 kg Weight, Pounds : 158 lb Body Surface Area (BSA) : 1.75 m2 Body Mass Index : 28 kg/m2 (HI) [place] Body Weight : 52 kg VANCE EBLTRAN RN - 12/20/2018 11:57 EST Health Histories Smoking Status : Smoker, current status unknown Smokeless Tobacco Status : Former smokeless tobacco user, quit more than 30 days ago Desires Tobacco Cessation Medication : No Reason for No Tobacco Cessation Medication : Refuses FDA approved medications VANCE EBLTRAN RN - 12/20/2018 11:57 EST Social History (As Of: 12/20/2018 12:01:50 EST) Tobacco: Smoking Status Former smoker. Comments: 11/23/2016 13:03 - DAVIDA ISAAC RN: quite 1993 (Last Updated: 11/23/2016 13:03:39 EST by DAVIDA ISAAC RN) Alcohol: Use in Last 12 Months: No. (Last Updated: 08/13/2013 09:59:59 EDT by KNEYON CHAMBERS RN) Substance Abuse: Drug Use Hx: [...] Home Treatments : Blood glucose monitoring, CPAP VANCE BELTRAN RN - 12/20/2018 11:57 EST Psychosocial [...] Info Preferred Name : ilsa Support Person/Patient Massage Therapist : Deanna Support Person/Pt Rep Name : Willard Contact Password : Marvin Support Person/Pt Rep Contact Information : [phone] Want Family/Rep/Phys Notified of Admit : No [...] BiPAP/CPAP Device With Patient : No VANCE BELTRAN RN - 12/20/2018 11:57 EST Srinivasan Scale [...] Scale Risk Level : 0-24 Low Risk [place] Fall Interventions : Bed in low position, Call device within reach, Non-slip footwear, Wheels locked VANCE BELTRAN RN - 12/20/2018 11:57 EST Valuables and Belongings Valuables and Belongings : Clothing Clothing : Common streetwear Clothing Disposition : Bedside VANCE BELTRAN RN - 12/20/2018 11:57 EST Electronically signed by Sivan [facility] Conversion Theatrical Rigger Cerner at 02/04/2023 2:07 PM CDT documented in this encounter Plan of Treatment Not on file documented as of this encounter Visit Diagnoses Not on filedocumented in this encounter Care Teams Plastic Worker Relationship Specialty Start Date End Date Jay Howell MD [address] [place] [phone] PCP - General Emergency Medicine 11/12/23 documented as of this encounter
--- OUTSIDE RECORDS SUMMARY | 2025-07-22 07:50 | XMS_ITS | Encounter Summary ---
Author Organization [employer] ([place], [place], [place], [place]) Address [address] [place] [address] Care Team Providers Care Retirement Assistant Name Role Phone Jay Howell MD Primary Care Provider [phone] Encounter Details Date Type Department Care Team (Late st Contact Info) Description 12/20/2018 Transcribed Document [facility] [place] [address] [place] [address] ProviderJessie MD [address] [place] [address] Social History Tobacco Use Types Packs/Day Years Used Date Smoking Tobacco: Never Assessed Comments Unknown Sex and Gender Information Value Date Recorded Sex Assigned at Not on file Legal Sex Female 7:30 PM CDT Gender Identity Not on file Sexual Orientation Not on file documented as of this encounter Miscellaneous Notes * [employer] Conversion Note - Historical ProviderMD - 12/20/2018 7:39 PM ANCILLARY SPECIALIST Admission History, Adult Entered On: 12/20/2018 19:41 [...] Info Preferred Name : ilsa Support Person/Patient Paper Cup Machine Tender : Deanna Support Person/Pt Rep Name : Willard Contact Password : Marvin Support Person/Pt Rep Contact Information : [phone] Want Family/Rep/Phys Notified of Admit : No Emergency Contact #1 : na Emergency Contact #1 Phone Number : na Emergency Contact #1 Relationship : na Emergency Contact #2 : na Emergency Contact #2 Phone Number : na Emergency Contact #2 Relationship : na Primary Language : Haitian Preferred Communication Mode [...] own ability Thomas Fall Risk Score : 45 THOMAS Fall Scale Risk Level : 25-45 Medium Risk [place] Fall Interventions : Adequate lighting, Assistive devices [...] Source : Stated Height Entry Format : [place] Height, Feet : 5 ft(Converted to: 152 cm, 60 Inch) Height, Inches : 3 Inch(Converted to: 0 ft 3 Inch, 7.62 cm) Clinical Height : 160.02 cm Weight Source : Standing scale Weight Entry Format : [place] Clinical Dosing Weight : 71.82 kg Weight, Pounds : 158 lb Body Surface Area (BSA) : 1.75 m2 Body Mass Index : 28 kg/m2 (HI) [place] Body Weight : 52 kg An Ocampo [...] RN - 12/20/2018 19:39 EST Spiritual/Cultural Needs Temple Preference : Cheondoism Spiritual/Cultural Needs Comment : joseph after surgery or major surgery An Ocampo RN - 12/20/2018 19:39 EST Valuables and Belongings Valuables and Belongings : Clothing, Personal devices Clothing : Common streetwear Clothing Disposition : Bedside Personal Device Disposition : Bedside Personal Devices : Dentures, partial plate An Ocampo RN - 12/20/2018 19:39 EST Electronically signed by [facility], [facility] Conversion Packing Machine Inspector Cerner at 02/04/2023 2:16 PM CDT documented in this encounter Plan of Treatment Not on file documented as of this encounter Visit Diagnoses Not on filedocumented in this encounter Care Teams Retirement Assistant Relationship Specialty Start Date End Date Jay Howell MD [address] [place] [phone] PCP - General Emergency Medicine 11/12/23 documented as of this encounter
--- OUTSIDE RECORDS SUMMARY | 2025-07-22 07:50 | XMS_ITS | Encounter Summary ---
Author Organization [employer] ([place], [place], [place], [place]) Address [address] [place] [address] Care Team Providers Care Registered Nurse Supervisor Name Role Phone Jay Howell MD Primary Care Provider [phone] Encounter Details Date Type Department Care Team (Late st Contact Info) Description 12/20/2018 Transcribed Document [facility] [place] Family Medicine [address] [place] [address] ProviderJessie MD [address] [place] [address] Social History Tobacco Use Types Packs/Day Years Used Date Smoking Tobacco: Never Assessed Comments Unknown Sex and Gender Information Value Date Recorded Sex Assigned at Not on file Legal Sex Female 7:30 PM CDT Gender Identity Not on file Sexual Orientation Not on file documented as of this encounter Miscellaneous Notes * [employer] Conversion Note - Historical ProviderMD - 12/20/2018 12:01 PM ANIMAL HEALTH TECHNICIAN Spiritual Care Assessment Entered On: 12/20/2018 13:37 EST Performed On: 12/20/2018 13:13 EST by ARTHUR HONEYCUTT General Information Initial Visit : Yes Referred by : Patient Referral Reason Comment : Advance directive Ministry Provided to : Patient, Family/Significant other Spiritism Preference : Pentecostalism ARTHUR HONEYCUTT - 12/20/2018 13:35 EST Spiritual [...] supported, Feelings expressed, Information provided Spiritual and Spiritism : Spiritual/Spiritism support provided Change, Adjustment and Loss : Provided support for current loss/grief ARTHUR HONEYCUTT P - 12/20/2018 13:35 EST Electronically signed by [facility] Conversion Vehicle Cost Engineer Cerner at 02/04/2023 2:01 PM CDT documented in this encounter Plan of Treatment Not on file documented as of this encounter Visit Diagnoses Not on filedocumented in this encounter Care Teams Registered Nurse Supervisor Relationship Specialty Start Date End Date Jay Howell MD [address] [place] [phone] PCP - General Emergency Medicine 11/12/23 documented as of this encounter
--- OUTSIDE RECORDS SUMMARY | 2025-07-22 07:50 | XMS_ITS | Encounter Summary ---
Author Organization [employer] ([place], [place], [place], [place]) Address [address] [place] [address] Care Team Providers Care Unemployment Insurance Hearing Officer Name Role Phone Jay Howell MD Primary Care Provider [phone] Encounter Details Date Type Department Care Team (Late st Contact Info) Description 09/01/2020 Transcribed Document [facility] [place] [address] [place] [address] ProviderJessie MD [address] [place], [place] [address] Social History Tobacco Use Types Packs/Day Years Used Date Smoking Tobacco: Never Assessed Comments Unknown Sex and Gender Information Value Date Recorded Sex Assigned at Not on file Legal Sex Female 7:30 PM CDT Gender Identity Not on file Sexual Orientation Not on file documented as of this encounter Miscellaneous Notes * [employer]ner Conversion Note - Jessie Yuen MD - 09/01/2020 9:47 AM VEHICLE FUEL SYSTEMS CONVERTER [address] , [place], [place] [id number] Patient Copy Patient Information: Name: SKYLER MONTOYA Current Date: 09/01/2020 09:47:45 : 1940 Patient Address: [address] [place] [phone] Patient Attending Physician: SARAH CONTEH MD Primary Care Provider: TARA CHEN (REF), -MED Primary Care Provider Discharge Diagnosis: Cellulitis of leg; Hematoma of left lower leg Weight on Admission: 152 lb, 0 oz Comment: Follow-up Instructions: With: Address: When: KAVITHA HIDALGO [address] [facility], [address] [place], [place] [id number] Business (1) In 2 days 09/03/2020 Comments: needs apt scheduled prior to DC With: Address: When: TARA CHEN [address] [place] [address] Business (1) Within 2 days Comments: needs INR check We have held your Aspirin per vascular surgeon, Dr. Verde. With: Address: When: KAELA ORTAKALI [facility], [address] [place] [address] Business (1) 12:30 PM Comments: F/u w/ FERNIE With: Address: When: KAELA VERDE [facility], [address] [place], [place] [id number] Business (1) 12:45 PM Comments: F/u W with Irina Troy PA-C Discharge Instructions: Immunizations Documented During Stay: No Immunizations Found Heart Failure Discharge Instructions (if any): Stroke Related Discharge Instructions (if any): Warfarin Related Discharge Instructions (if any): Final Medication List: [facility], [address] [facility] [address] [place], [place] [id number], [phone] amLODIPine (Norvasc 10 mg oral tablet) 1 [...] At Bedtime as needed for anxiety/sleep. acetaminophen-hydrocodone (Wiggins 7.5 mg-325 mg oral tablet) 1 Tablet(s) [...] these instructions at home: Medicines ??? Take vihc-jdv-jpjnmbh and prescription medicines only as told by [...] 03/21/2009 Document Revised: 02/22/2019 Document Reviewed: 02/22/2019 [employer] Patient Education ? 2019 [employer]. What You Need to Know About Warfarin [...] other medicines or supplements? Many prescription and dwku-dhs-luxipcg medicines can interfere with warfarin. Talk with your health care provider or your pharmacist before starting or stopping any new medicines. This includes gnwx-yea-qfgeehi vitamins, dietary supplements, herbal medicines, and pain medicines. Your warfarin dosage may need to be adjusted. ??? Some common oepm-rzh-gqkyejr medicines that may increase the risk of [...] that you work with a diet and computer support specialist (dietitian). ??? Vitamin K decreases the [...] cooked. ??? Collards, raw or cooked. ??? Italian chard, raw or cooked. ??? Mustard greens, raw or cooked. ??? Turnip greens, raw or cooked. ??? Parsley, raw. ??? Broccoli, cooked. ??? Noodles, eggs, and spinach, enriched. ??? [place] sprouts, raw or cooked. ??? Beet greens, [...] diet. ??? You start or stop any mhhq-uul-egwafer medicine, prescription medicine, or dietary supplement. ??? [...] Reviewed: 12/29/2016 Elsevier Patient Education ? 2020 [employer] Inc. Hematoma A hematoma is a collection [...] health care provider. General instructions ??? Take gckx-dgv-fulwflh and prescription medicines only as told by [...] 05/17/2005 Document Revised: 03/08/2019 Document Reviewed: 03/08/2019 [employer] Patient Education ? 2020 [employer] Inc. CIGARETTE SMOKING: The facts are clear, cigarette smoking will shorten your life. Smoking can cause many illnesses along the way. As a healthcare provider, we recommend that you stop smoking. Assistance with quitting is available by contacting 9-773-XKTC-NOW. This is a free resource providing counseling, [...] Be sure to sign up for the [employer] patient portal, which gives you 09/05 access to your medical information ??? including these discharge instructions ??? using your computer, smartphone, or tablet. Just go to [employer] to get started. Questions? Call . [facility] would like to thank you for allowing us to assist you with your healthcare needs. MICHELE Skaggs JUDY D, (or physician representative) have received the above patient education materials/instructions and have verbalized understanding: Patient Signature _ Date/Time Patient Sprinkler Irrigation Equipment Mechanic Signature (if needed) Date/Time Clinician/Hospital Sprinkler Irrigation Equipment Mechanic Signature (if needed) Date/Time documented in this encounter Plan of Treatment Not on file documented as of this encounter Visit Diagnoses Not on filedocumented in this encounter Care Teams Unemployment Insurance Hearing Officer Relationship Specialty Start Date End Date Jay Howell MD [address] [place] [phone] PCP - General Emergency Medicine 11/12/23 documented as of this encounter
--- OUTSIDE RECORDS SUMMARY | 2025-07-22 07:50 | XMS_ITS | Encounter Summary ---
Author Organization [employer] ([place], [place], [place], [place]) Address [address] [place] [address] Care Team Providers Care Case Filler Name Role Phone Jay Howell MD Primary Care Provider [phone] Encounter Details Date Type Department Care Team (Late st Contact Info) Description 12/20/2018 Transcribed Document [facility] [place] Family Medicine [address] [place] [address] ProviderJessie MD [address] [place] [address] Social History Tobacco Use Types Packs/Day Years Used Date Smoking Tobacco: Never Assessed Comments Unknown Sex and Gender Information Value Date Recorded Sex Assigned at Not on file Legal Sex Female 7:30 PM CDT Gender Identity Not on file Sexual Orientation Not on file documented as of this encounter Miscellaneous Notes * Cerner Conversion Note - Jessie Yuen MD - 12/20/2018 8:00 AM MOTOR ANALYST Patient: SKYLER MONTOYA Age: 77 years Sex: Female : 1940 Associated Diagnoses: None Author: FREDY PACHECO MD-CAR Basic Information PCP: Dr. Moeller Transportation Officer: Stephania Garcia MD Chief Complaint Pre-op clearance; shoulder surgery with Dr. Prieto Watters at [facility] Stress test 12/06/18; abnormal History of [...] All Problems Chest pain / SNOMED CT 10849239 / Complaint of Cataract / Patient Care / Confirmed Glaucoma / Patient Care / Confirmed Coronary artery disease / SNOMED CT 5703260846 / Confirmed Stented coronary artery / SNOMED CT 5438077052 / Confirmed High blood pressure / SNOMED CT 43304067 / Confirmed Hyperlipidemia / SNOMED CT 63400164 / Confirmed Clotting disorder / SNOMED CT 619999301 / Confirmed COPD / SNOMED CT 21666496 / Confirmed GERD - Gastro-esophageal reflux disease / SNOMED CT 0021189714 / Confirmed Multiple renal cysts / SNOMED CT 393932574 / Confirmed UTI - Urinary tract infection / SNOMED CT 0972780897 / Confirmed Arthritis / SNOMED CT 1209916 / Confirmed Diabetes mellitus / SNOMED CT 501374402 / Confirmed Blood clot / SNOMED CT 801697210 / Confirmed Emphysema / SNOMED CT 708270990 / Confirmed Apnea, sleep / SNOMED CT 801914317 / Confirmed Hx of pulmonary embolus / SNOMED CT 293553555 / Confirmed Chronic anticoagulation / SNOMED CT 935356170 / Confirmed Atrial fibrillation with RVR / SNOMED CT 9900140613 / Confirmed History of obstructive sleep apnea / IMO 82663903 / Confirmed Histories No education data available. [...] History: Active Cataract Glaucoma Coronary artery disease (7045212349) Stented coronary artery (2198636530) High blood pressure (33978489) Hyperlipidemia (13994046) COPD (81147250) GERD - Gastro-esophageal reflux disease (2764348512) Multiple renal cysts (195786777) UTI - Urinary tract infection (4492320183) Arthritis (4353306) Diabetes mellitus (595746399) Emphysema (289338700) Apnea, sleep (045642189) Hx of pulmonary embolus (666951655) Chronic anticoagulation (028353537) Atrial fibrillation with RVR (2194404977) Family History: Cardiomyopathy Child Stroke Brother Heart attack Brother Sister Leukemia Child Cancer Father Mother Sister Coronary heart disease Child Procedure history: femur repair. Appendectomy (638219440). uterine suspension. Hysterectomy (977099457). back surgury. Coronary artery bypass graft (928829077). Cholecystectomy (81585262). Hip replacement (2420938715). cataract surgury. Social History Social & Psychosocial [...] of motion, Normal strength. Integumentary: Warm, Dry, [place]. Neurologic: Alert, Oriented. Psychiatric: Cooperative. Review / [...] on filedocumented in this encounter Care Teams Case Filler Relationship Specialty Start Date End Date Jay Howell MD [address] [place] [phone] PCP - General Emergency Medicine 11/12/23 documented as of this encounter
--- OUTSIDE RECORDS SUMMARY | 2025-07-22 07:50 | XMS_ITS | Encounter Summary ---
Author Organization [employer] ([place], [place], [place], [place]) Address [address] [place] [address] Care Team Providers Care Chart Calculator Name Role Phone Jay Howell MD Primary Care Provider [phone] Encounter Details Date Type Department Care Team (Late st Contact Info) Description 08/30/[address] [facility] [place] [address] [place] [address] ProviderJessie MD [address] [place] [address] Social History Tobacco Use Types Packs/Day Years Used Date Smoking Tobacco: Never Assessed Comments Unknown Sex and Gender Information Value Date Recorded Sex Assigned at Not on file Legal Sex Female 7:30 PM CDT Gender Identity Not on file Sexual Orientation Not on file documented as of this encounter Miscellaneous Notes * Cerner Conversion Note - Jessie Yuen MD - 08/30/2020 10:43 AM POLICY INTERN Patient: SKYLER MONTOYA Age: 79 years Sex: [...] level of muscle per surgery *Operation RIGHT CUTTER GRIND TOOL TECHNICIAN access - ultrasound guided Aortogram with LEFT lower extremity run-off LEFT PT angioplasty (2.5-3y307kw [employer]) LEFT peroneal angioplasty (2.5-6u001ic [employer]) RIGHT CUTTER GRIND TOOL TECHNICIAN closure (Angioseal) LEFT leg debridement 08/30/20 doing [...] Level 0.70 mg/dL 08/29/2020 02:04 Bun/Creatinine 22.9 IA 08/29/2020 02:04 eGFR >60 mL/min/1.73m2 08/29/2020 02:04 eGFR NonAfrican >60 mL/min/1.73m2 08/29/2020 02:04 Bun/Creatinine 22.9 IA 08/29/2020 07:33 Sodium Level 138 mmol/L 08/29/2020 02:04 Potassium Level 3.8 mmol/L 08/30/2020 04:13 Chloride Level 108 mmol/L 08/29/2020 02:04 Carbon Dioxide Level 23 mmol/L 08/29/2020 02:04 Anion Gap 10 08/29/2020 02:04 Blood Urea Nitrogen 16 mg/dL 08/29/2020 02:04 Glucose Level 108 mg/dL IA 08/29/2020 02:04 Calcium Level 9.1 mg/dL 08/29/2020 02:04 MICRO: ACC: [id number] ORDER: Culture Blood DATE: 08/25/2020 05:01 SOURCE: Blood SITE: Reports Final 08/30/2020 06:01 No growth at 5 days. Pre 08/29/2020 06:01 No growth at 4 days. Pre 08/28/2020 06:01 No growth at 3 days. Pre 08/27/2020 06:01 No growth at 2 days. Pre 08/26/2020 06:01 No growth at 1 day. Pre 08/25/2020 23:02 Culture less than 24 Hrs old == ACC: [id number] ORDER: Culture Blood DATE: 08/25/2020 05:01 SOURCE: Blood SITE: Reports Final 08/30/2020 06:01 No growth at 5 days. Pre 08/29/2020 06:02 No growth at 4 days. Pre 08/28/2020 06:01 No growth at 3 days. Pre 08/27/2020 06:01 No growth at 2 days. Pre 08/26/2020 06:01 No growth at 1 day. Pre 08/25/2020 23:02 Culture less than 24 Hrs old == ACC: [id number] ORDER: Culture Wound and Stain DATE: 08/26/2020 15:23 SOURCE: Surgical Swab SITE: Leg Lower L Reports Final 08/29/2020 08:29 No growth Pre 08/27/2020 07:14 No growth GS 08/26/2020 18:13 Few White Blood Cells No organisms seen. == ACC: [id number] ORDER: Culture Wound and Stain DATE: 08/25/2020 05:00 SOURCE: Wound SITE: Leg Lower L Reports Final 08/28/2020 08:57 No growth Pre 08/26/2020 06:23 No growth GS 08/25/2020 07:26 No organisms seen. Few White Blood Cells Rare epithelial cells == ACC: [id number] ORDER: Culture AFB and Stain DATE: 08/26/2020 13:56 SOURCE: Surgical Swab SITE: Leg Lower L Reports AFS 08/27/2020 13:07 No Acid Fast Bacilli seen == ACC: [id number] ORDER: Culture Anaerobic DATE: 08/26/2020 13:56 SOURCE: Surgical Swab SITE: Leg Lower L Reports Pre 08/28/2020 07:01 No Anaerobic growth Pre 08/27/2020 07:47 Culture in progress == ACC: [id number] ORDER: Culture Fungus DATE: 08/26/2020 13:56 SOURCE: [...] filedocumented in this encounter Care Teams Chart Calculator Relationship Specialty Start Date End Date Jay Howell MD [address] [place] [phone] PCP - General Emergency Medicine 11/12/23 documented as of this encounter
--- OUTSIDE RECORDS SUMMARY | 2025-07-22 07:50 | XMS_ITS | Encounter Summary ---
Author Organization [employer] ([place], [place], [place], [place]) Address [address] [place] [address] Care Team Providers Care District Loss Prevention Manager Name Role Phone Jay Howell MD Primary Care Provider [phone] Encounter Details Date Type Department Care Team (Late st Contact Info) Description 12/20/2018 Transcribed Document [facility] [place] Family Medicine [address] [place] [address] ProviderJessie MD [address] [place] [address] Social History Tobacco Use Types Packs/Day Years Used Date Smoking Tobacco: Never Assessed Comments Unknown Sex and Gender Information Value Date Recorded Sex Assigned at Not on file Legal Sex Female 7:30 PM CDT Gender Identity Not on file Sexual Orientation Not on file documented as of this encounter Miscellaneous Notes * Cerner Conversion Note - Historical ProviderMD - 12/20/2018 3:20 PM LEGAL BILLING ANALYST DATE OF PROCEDURE: LEFT HEART CATHETERIZATION, GRAFT ANGIOGRAPHY, ILIAC ARTERY ANGIOGRAPHY, PERCUTANEOUS INTERVENTION REPORT INDICATION: Lifestyle limiting exertional angina. REFERRING PHYSICIAN: Dr. Adry Dumas and Dr. Avtar Moeller. PROCEDURE: Standard left heart catheterization. TECHNIQUE: A 5/6-Egyptian sheath placed in the right femoral artery. Right iliac artery angiography was performed using a JR4 diagnostic catheter due to difficulty in advancing safety J-wire across the proximal right common iliac artery. Angiography revealed patent iliac artery with a kink proximally. There is no pressure gradient across the kink. The short 6-Egyptian sheath was switched out for a 25 cm 6-Egyptian Arrow sheath with the sheath tip into the abdominal aorta for angiography and percutaneous intervention. JL4, JR4 diagnostic catheters were used for selective angiography of the [place] vessels. JR4 diagnostic catheter was used for selective angiography of the bypass grafts. A 6-Egyptian pigtail catheter was advanced in the left [...] additional 162 mg of aspirin in the cemetery laborer. She was given Aggrastat bolus. Patient received intracoronary nitroglycerin to optimize coronary vessel sizing. Wood Pacheco M.D. Dict: 12/20/2018 15:20:17 Trans: 12/20/2018 18:55:03 CC1: Wood Pacheco M.D. CC2: Dr. Adry Dumas CC3: Dr. Avtar Moeller documented in this encounter Plan of Treatment Not on file documented as of this encounter Visit Diagnoses Not on filedocumented in this encounter Care Teams District Loss Prevention Manager Relationship Specialty Start Date End Date Jay Howell MD [address] [place] [phone] PCP - General Emergency Medicine 11/12/23 documented as of this encounter
--- OUTSIDE RECORDS SUMMARY | 2025-07-22 07:50 | XMS_ITS | Encounter Summary ---
Author Organization [employer] ([place], [place], [place], [place]) Address [address] [place] [address] Care Team Providers Care Punch Finisher Name Role Phone Jay Howell MD Primary Care Provider [phone] Encounter Details Date Type Department Care Team (Late st Contact Info) Description 08/29/2020 Transcribed Document [facility] [place] Family Medicine [facility] [place] [address] ProviderJessie MD [address] [place] [address] Social History Tobacco Use Types Packs/Day Years Used Date Smoking Tobacco: Never Assessed Comments Unknown Sex and Gender Information Value Date Recorded Sex Assigned at Not on file Legal Sex Female 7:30 PM CDT Gender Identity Not on file Sexual Orientation Not on file documented as of this encounter Miscellaneous Notes * Cerner Conversion Note - Jessie Yuen MD - 08/29/2020 2:44 PM LEAD NUCLEAR MEDICINE TECHNOLOGIST Final Discharge Planning Entered On: 08/29/2020 14:44 EST Performed On: 08/29/2020 14:44 EST by KAVITA PELLETIER RN-Signal Person Final Discharge Planning Discharge Arrangements : Patient Post-Acute Information Patient Name: SKYLER MONTOYA Gender: Female : [birth year] Age: 79 Years No Post-Acute Placement(s) Listed No Post-Acute Service(s) Listed No Cur[place] Referral(s) Listed Patient Offered Choice/Affiliations Explained : Yes Important Medicare Message Reviewed With : Patient Important Medicare Message Reviewed D/T : 08/29/2020 9:00 EST KAVITA PELLETIER RN-Signal Person - 08/29/2020 14:44 EST Electronically signed by Interface, [facility] Conversion Truss Designer Cerner at 02/04/2023 1:55 PM CDT documented in this encounter Plan of Treatment Not on file documented as of this encounter Visit Diagnoses Not on filedocumented in this encounter Care Teams Punch Finisher Relationship Specialty Start Date End Date Jay Howell MD [address] [place] [phone] PCP - General Emergency Medicine 11/12/23 documented as of this encounter
--- OUTSIDE RECORDS SUMMARY | 2025-07-22 07:50 | XMS_ITS | Encounter Summary ---
Author Organization [employer] ([place], [place], [place], [place]) Address [address] [place] [address] Care Team Providers Care Meeting Coordinator Name Role Phone Jay Howell MD Primary Care Provider [phone] Encounter Details Date Type Department Care Team (Late st Contact Info) Description 09/04/2020 Transcribed Document [facility] [place] Family Medicine [address] [place] [address] ProviderJessie MD [address] [place] [address] Social History Tobacco Use Types Packs/Day Years Used Date Smoking Tobacco: Never Assessed Comments Unknown Sex and Gender Information Value Date Recorded Sex Assigned at Not on file Legal Sex Female 7:30 PM CDT Gender Identity Not on file Sexual Orientation Not on file documented as of this encounter Miscellaneous Notes * Cerner Conversion Note - Jessie Yuen MD - 09/04/2020 2:10 AM CRATE TIER ED Discharge Entered On: 09/04/2020 4:14 EST [...] 09/04/2020 4:14 EST Electronically signed by Sivan, [facility] Conversion Scarf And Anneal Operator Cerner at 02/04/2023 2:10 PM CDT documented in this encounter Plan of Treatment Not on file documented as of this encounter Visit Diagnoses Not on filedocumented in this encounter Care Teams Meeting Coordinator Relationship Specialty Start Date End Date Jay Howell MD [address] [place] [phone] PCP - General Emergency Medicine 11/12/23 documented as of this encounter
--- OUTSIDE RECORDS SUMMARY | 2025-07-22 07:50 | XMS_ITS | Encounter Summary ---
Author Organization [employer] ([place], [place], [place], [place]) Address [address] [place] [address] Care Team Providers Care Electromechanical Assembler Name Role Phone Jay Howell MD Primary Care Provider [phone] Encounter Details Date Type Department Care Team (Late st Contact Info) Description 08/31/2020 Transcribed Document [facility] [place] Family Medicine [address] [place] [address] ProviderJessie MD [address] [place] [address] Social History Tobacco Use Types Packs/Day Years Used Date Smoking Tobacco: Never Assessed Comments Unknown Sex and Gender Information Value Date Recorded Sex Assigned at Not on file Legal Sex Female 7:30 PM CDT Gender Identity Not on file Sexual Orientation Not on file documented as of this encounter Miscellaneous Notes * Cerner Conversion Note - Jessie Yuen MD - 08/31/2020 9:43 AM PACKER AND CARRY OUT Patient: SKYLER MONTOYA Age: 79 years Sex: [...] mg, 6 mL, 112 mL/Hr, IV Piggyback, [id number] DuoNeb 0.5 mg-2.5 mg/3 mL inhalation solution: [...] Tab, Oral, Daily, 30 Tab, 0 Refill(s) [place] 7.5 mg-325 mg oral tablet: 1 Tab, [...] mL 300 mg 6 mL, IV Piggyback, [id number] dorzolamide 2% ophth soln 10 mL 1 [...] Confirmed Coronary artery disease / SNOMED CT 5861514229 / Confirmed Stented coronary artery / SNOMED CT 5153202095 / Confirmed High blood pressure / SNOMED CT 34366706 / Confirmed Hyperlipidemia / SNOMED CT 19457786 / Confirmed COPD / SNOMED CT 07182892 / Confirmed GERD - Gastro-esophageal reflux disease / SNOMED CT 2655564914 / Confirmed Multiple renal cysts / SNOMED CT 406879785 / Confirmed Arthritis / SNOMED CT 0830148 / Confirmed Diabetes mellitus / SNOMED CT 915468574 / Confirmed Emphysema / SNOMED CT 351689924 / Confirmed Apnea, sleep / SNOMED CT 503703268 / Confirmed Hx of pulmonary embolus / SNOMED CT 284905233 / Confirmed Chronic anticoagulation / SNOMED CT 340189257 / Confirmed Atrial fibrillation with RVR / SNOMED CT 8851773467 / Confirmed Chest pain / SNOMED CT 20698784 / Complaint of History of obstructive sleep apnea / IMO 55611052 / Confirmed Resolved: UTI - Urinary tract infection / SNOMED CT 4815739973 Canceled: History of obstructive sleep apnea / IMO 81377026, Active Problems (20) Apnea, sleep Arthritis Atrial [...] days based on INR Electronically signed by Sivan [facility] Conversion Brake Repairer Air Cerner at 02/04/2023 2:09 PM CDT documented in this encounter Plan of Treatment Not on file documented as of this encounter Visit Diagnoses Not on filedocumented in this encounter Care Teams Electromechanical Assembler Relationship Specialty Start Date End Date Jay Howell MD [address] [place] [phone] PCP - General Emergency Medicine 11/12/23 documented as of this encounter
--- OUTSIDE RECORDS SUMMARY | 2025-07-22 07:50 | XMS_ITS | Encounter Summary ---
Author Organization [employer] ([place], [place], [place], [place]) Address [address] [place] [address] Care Team Providers Care Safety Trainer Name Role Phone Jay Howell MD Primary Care Provider [phone] Encounter Details Date Type Department Care Team (Late st Contact Info) Description 08/29/2020 Transcribed Document [facility] [place] Family Medicine [address] [place] [address] ProviderJessie MD [address] [place] [address] Social History Tobacco Use Types Packs/Day Years Used Date Smoking Tobacco: Never Assessed Comments Unknown Sex and Gender Information Value Date Recorded Sex Assigned at Not on file Legal Sex Female 7:30 PM CDT Gender Identity Not on file Sexual Orientation Not on file documented as of this encounter Miscellaneous Notes * Cerner Conversion Note - Jessie Yuen MD - 08/29/2020 2:41 PM CHEMICAL ENGINEERING TECHNICIAN On Going Discharge Planning Entered On: 08/29/2020 14:44 EST Performed On: 08/29/2020 14:41 EST by KAVITA PELLETIER RN-A/C TechIdentifier Horse Progress Note Discharge Arrangements : Patient Post-Acute [...] Meeting Medical Necessity : Yes KAVITA PELLETIER RN-A/C Tech - 08/29/2020 14:41 EST Narrative Progress Note Narrative Progress Note : No DC today--INR-1.5. Hep gtt started to bridge Coumadin. NPWT for home obtained from [employer] and has been delivered to pt's room. [...] will obtain prior to dc. List of TRUCK GREASER's for [place] given to pt. She will choose and inform CM. Coumadin restarted today. CM will continue to follow. KAVITA PELLETIER RN-A/C Tech - 08/28/20 15:37:20 Pt is s/p LLE [...] past after her [facility] and went to [facility] prior to home with HH. She is agreeable to look at list of TRUCK GREASER to make an informed decision based on quality and resource use information. Cx's are pending to determine need for IV abx at home. Likely dc in a few days. CM will continue to follow. KAVITA PELLETIER RN-A/C Tech - 08/27/20 15:14:36 KAVITA PELLETIER RN-A/C Tech - 08/29/2020 14:41 EST Electronically signed by Sivan [facility] Conversion Insurance Agency Sales Manager Cerner at 02/04/2023 2:06 PM CDT documented in this encounter Plan of Treatment Not on file documented as of this encounter Visit Diagnoses Not on filedocumented in this encounter Care Teams Safety Trainer Relationship Specialty Start Date End Date Jay Howell MD [address] [place] [phone] PCP - General Emergency Medicine 11/12/23 documented as of this encounter
--- OUTSIDE RECORDS SUMMARY | 2025-07-22 07:50 | XMS_ITS | Encounter Summary ---
Author Organization [employer] ([place], [place], [place], [place]) Address [address] [place] [address] Care Team Providers Care Commissioner Of Conciliation Name Role Phone Jay Howell MD Primary Care Provider [phone] Encounter Details Date Type Department Care Team (Late st Contact Info) Description 12/14/2018 Transcribed Document [facility] [place] Family Medicine [address] [place] [address] ProviderJessie MD [address] [place], [place] [address] Social History Tobacco Use Types Packs/Day Years Used Date Smoking Tobacco: Never Assessed Comments Unknown Sex and Gender Information Value Date Recorded Sex Assigned at Not on file Legal Sex Female 7:30 PM CDT Gender Identity Not on file Sexual Orientation Not on file documented as of this encounter Miscellaneous Notes * Cerner Conversion Note - Historical ProviderMD - 12/14/2018 4:49 PM BENZENE OPERATOR CR Chest 2 Vws Ordered: 12/12/2018 Auth (Verified) Reason for Exam: cp 12/13/2018 11:39 12/14/2018 16:49 (LESTER PILLAI PA) Reviewed by Provider, No further action required X1 12/14/2018 16:47 (FLORENTIN CAMARGO) No further action required Electronically signed by Sivan [facility] Conversion Synthetic Plasterer Cerner at 02/04/2023 2:04 PM CDT documented in this encounter Plan of Treatment Not on file documented as of this encounter Visit Diagnoses Not on filedocumented in this encounter Care Teams Commissioner Of Conciliation Relationship Specialty Start Date End Date Jay Howell MD [address] [place] [phone] PCP - General Emergency Medicine 11/12/23 documented as of this encounter
--- OUTSIDE RECORDS SUMMARY | 2025-07-22 07:50 | XMS_ITS | Encounter Summary ---
Author Organization [employer] ([place], [place], [place], [place]) Address [address] [place] [address] Care Team Providers Care Weblogic Administrator Name Role Phone Jay Howell MD Primary Care Provider [phone] Encounter Details Date Type Department Care Team (Late st Contact Info) Description 09/22/2020 Transcribed Document [facility] Family Medicine [address] [place] [address] ProviderJessie MD [address] [place] [address] Social History Tobacco Use Types Packs/Day Years Used Date Smoking Tobacco: Never Assessed Comments Unknown Sex and Gender Information Value Date Recorded Sex Assigned at Not on file Legal Sex Female 7:30 PM CDT Gender Identity Not on file Sexual Orientation Not on file documented as of this encounter Miscellaneous Notes * Cerner Conversion Note - Historical ProviderMD - 09/22/2020 4:56 PM EGG WORKER Patient: SKYLER MONTOYA Age: 79 Years Sex: [...] present starting at the level of the UNHAIRING MACHINE OPERATOR. Non significant, non-flow restricting plaque noted at common femoral artery. 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 There is a significant (50-75%) stenosis of the distal UNHAIRING MACHINE OPERATOR. Non significant, non-flow restricting plaque noted at DPA. UNHAIRING MACHINE OPERATOR & DPA non compressible for FERNIE. TBI: Non compressible. LEFT: Abnormal arterial runoff disease present starting at the level of the UNHAIRING MACHINE OPERATOR. Non significant, non-flow restricting plaque noted at common femoral artery. There is a severe (>75%) stenosis of the distal UNHAIRING MACHINE OPERATOR. UNHAIRING MACHINE OPERATOR & DPA non compressible for FERNIE. TBI: Non compressible. documented in this encounter Plan of Treatment Not on file documented as of this encounter Visit Diagnoses Not on filedocumented in this encounter Care Teams Weblogic Administrator Relationship Specialty Start Date End Date Jay Howell MD [address] [place] [phone] PCP - General Emergency Medicine 11/12/23 documented as of this encounter
--- OUTSIDE RECORDS SUMMARY | 2025-07-22 07:50 | XMS_ITS | Encounter Summary ---
Author Organization [employer] ([place], [place], [place], [place]) Address [address] [place] [address] Care Team Providers Care Volunteer Services Assistant Name Role Phone Jay Howell MD Primary Care Provider [phone] Encounter Details Date Type Department Care Team (Late st Contact Info) Description 09/01/2020 Transcribed Document [facility] [place] Medicine [address] [place] [address] ProviderJessie MD [address] [place] [address] Social History Tobacco Use Types Packs/Day Years Used Date Smoking Tobacco: Never Assessed Comments Unknown Sex and Gender Information Value Date Recorded Sex Assigned at Not on file Legal Sex Female 7:30 PM CDT Gender Identity Not on file Sexual Orientation Not on file documented as of this encounter Miscellaneous Notes * Cerner Conversion Note - Jessie Yuen MD - 09/01/2020 1:19 PM ADMINISTRATIVE PROCESSOR Final Discharge Planning Entered On: 09/01/2020 13:20 EST Performed On: 09/01/2020 13:19 EST by KAVITA PELLETIER RN-Media Job Titles Final Discharge Planning Discharge Arrangements : Patient Post-Acute Information Patient Name: SKYLER MONTOYA Gender: Female : 38 Age: 79 Years [place] Referral(s): Service: Organization: Business Address: Phone Number: [address], [address] Patient Offered Choice/Affiliations Explained : [...] Services (Related/SOC within 3 days)- KAVITA PELLETIER RN-Media Job Titles - 09/01/2020 13:19 EST Final Narrative Note Final Narrative Note : INR-1.4. Pt will dc home today on Lovenox to bridge Coumadin. Orders for HH to INR sent to [facility] and hui jauregui in intake and of pt's dc home today. F/u appts scheduled with PCP, Vasc, and ID. No other CM needs noted. KAVITA PELLETIER RN-Media Job Titles - 09/01/2020 13:19 EST Electronically signed by Sivan, [facility] Conversion Die Turner Cerner at 02/04/2023 2:17 PM CDT documented in this encounter Plan of Treatment Not on file documented as of this encounter Visit Diagnoses Not on filedocumented in this encounter Care Teams Volunteer Services Assistant Relationship Specialty Start Date End Date Jay Howell MD [address] [place] [phone] PCP - General Emergency Medicine 11/12/23 documented as of this encounter
--- OUTSIDE RECORDS SUMMARY | 2025-07-22 07:50 | XMS_ITS | Clinical Summary ---
Author Organization [employer] ([place], [place], [place], [place]) Address [address] [place] [address] Care Team Providers Care School Lunch Monitor Name Role Phone Jay Howell MD Primary Care Provider [phone] Allergies Active Allergy Reactions Criticality Noted Date [...] Date Kennedy rded Speak language other than Romanian at home Not on file 10/30/2023 Want [...] history exists Insurance [place] [address] [place] [address] [place] [id number] Advance Directives For more information, please contact: [phone] * Full Code (Latest Code Status on File) Date Activated Date Inactivated Comments 11/25/2022 10:41 AM 11/26/2022 5:33 PM * Full Code Date Activated Date Inactivated Comments 11/25/2022 8:11 AM 11/25/2022 10:41 AM -Attempt Resu scitation if person has no pulse and is not breathing. -If no pulse or not breathing attempt CPR/CODE. -Call Rapid Response if patient is in distress. Care Teams School Lunch Monitor Relationship Specialty Start Date End Date Jay Howell MD [address] [place] [phone] PCP - General Emergency Medicine 11/12/23
--- OUTSIDE RECORDS SUMMARY | 2025-07-22 07:50 | XMS_ITS | Encounter Summary ---
Author Organization [employer] ([place], [place], [place], [place]) Address [address] [place] [address] Care Team Providers Care Rouge Sifter Name Role Phone Jay Howell MD Primary Care Provider [phone] Encounter Details Date Type Department Care Team (Late st Contact Info) Description 09/01/2020 Transcribed Document [facility] [place] [address] [place] [address] ProviderJessie MD [address] [place] [address] Social History Tobacco Use Types Packs/Day Years Used Date Smoking Tobacco: Never Assessed Comments Unknown Sex and Gender Information Value Date Recorded Sex Assigned at Not on file Legal Sex Female 7:30 PM CDT Gender Identity Not on file Sexual Orientation Not on file documented as of this encounter Miscellaneous Notes * Cerner Conversion Note - Jessie Yuen MD - 09/01/2020 10:55 AM APPLIED MATHEMATICIAN Patient: SKYLER MONTOYA Age: 79 years Sex: [...] level of muscle per surgery *Operation RIGHT FORMS ANALYST access - ultrasound guided Aortogram with LEFT lower extremity run-off LEFT PT angioplasty (2.5-9h337dz Nanocross) LEFT peroneal angioplasty (2.5-9n454lg Nanocross) RIGHT FORMS ANALYST closure (Angioseal) LEFT leg debridement 09/01/20 probable [...] Results Found (Past 24 Hours) MICRO: ACC: [id number] ORDER: Culture Anaerobic DATE: 08/26/2020 13:56 SOURCE: Surgical Swab SITE: Leg Lower L Reports Final 08/31/2020 07:45 No Anaerobic growth Pre 08/28/2020 07:01 No Anaerobic growth Pre 08/27/2020 07:47 Culture in progress == ACC: [id number] ORDER: Culture Blood DATE: 08/25/2020 05:01 SOURCE: Blood SITE: Reports Final 08/30/2020 06:01 No growth at 5 days. Pre 08/29/2020 06:01 No growth at 4 days. Pre 08/28/2020 06:01 No growth at 3 days. Pre 08/27/2020 06:01 No growth at 2 days. Pre 08/26/2020 06:01 No growth at 1 day. Pre 08/25/2020 23:02 Culture less than 24 Hrs old == ACC: [id number] ORDER: Culture Blood DATE: 08/25/2020 05:01 SOURCE: Blood SITE: Reports Final 08/30/2020 06:01 No growth at 5 days. Pre 08/29/2020 06:02 No growth at 4 days. Pre 08/28/2020 06:01 No growth at 3 days. Pre 08/27/2020 06:01 No growth at 2 days. Pre 08/26/2020 06:01 No growth at 1 day. Pre 08/25/2020 23:02 Culture less than 24 Hrs old == ACC: [id number] ORDER: Culture Wound and Stain DATE: 08/26/2020 15:23 SOURCE: Surgical Swab SITE: Leg Lower L Reports Final 08/29/2020 08:29 No growth Pre 08/27/2020 07:14 No growth GS 08/26/2020 18:13 Few White Blood Cells No organisms seen. == ACC: [id number] ORDER: Culture Wound and Stain DATE: 08/25/2020 05:00 SOURCE: Wound SITE: Leg Lower L Reports Final 08/28/2020 08:57 No growth Pre 08/26/2020 06:23 No growth GS 08/25/2020 07:26 No organisms seen. Few White Blood Cells Rare epithelial cells == ACC: [id number] ORDER: Culture AFB and Stain DATE: 08/26/2020 13:56 SOURCE: Surgical Swab SITE: Leg Lower L Reports AFS 08/27/2020 13:07 No Acid Fast Bacilli seen == ACC: [id number] ORDER: Culture Fungus DATE: 08/26/2020 13:56 SOURCE: [...] wed in clinic Electronically signed by Sivan, [facility] Conversion Progress Worker Cerner at 02/04/2023 1:59 PM CDT documented in this encounter Plan of Treatment Not on file documented as of this encounter Visit Diagnoses Not on filedocumented in this encounter Care Teams Rouge Sifter Relationship Specialty Start Date End Date Jay Howell MD [address] [place] [phone] PCP - General Emergency Medicine 11/12/23 documented as of this encounter
--- OUTSIDE RECORDS SUMMARY | 2025-07-22 07:50 | XMS_ITS | Encounter Summary ---
Author Organization [employer] ([place], [place], [place], [place]) Address [address] [place] [address] Care Team Providers Care Die Repairer Trimmer Dies Name Role Phone Jay Howell MD Primary Care Provider [phone] Encounter Details Date Type Department Care Team (Late st Contact Info) Description 09/29/2020 Transcribed Document [facility] [place] [address] [place] [address] ProviderJessie MD [address] [place] [address] Social History Tobacco Use Types Packs/Day Years Used Date Smoking Tobacco: Never Assessed Comments Unknown Sex and Gender Information Value Date Recorded Sex Assigned at Not on file Legal Sex Female 7:30 PM CDT Gender Identity Not on file Sexual Orientation Not on file documented as of this encounter Miscellaneous Notes * Cerner Conversion Note - Historical ProviderMD - 09/29/2020 5:14 PM HARVEST CONTRACTOR Patient: SKYLER MONTOYA Age: 79 Years Sex: [...] present starting at the level of the DOUBLE NEEDLE OPERATOR. Non significant, non-flow restricting plaque noted at common femoral artery. 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 There is a significant (50-75%) stenosis of the distal DOUBLE NEEDLE OPERATOR. Non significant, non-flow restricting plaque noted at DPA. DOUBLE NEEDLE OPERATOR & DPA non compressible for FERNIE. TBI: Non compressible. LEFT: Abnormal arterial runoff disease present starting at the level of the DOUBLE NEEDLE OPERATOR. Non significant, non-flow restricting plaque noted at common femoral artery. There is a severe (>75%) stenosis of the distal DOUBLE NEEDLE OPERATOR. DOUBLE NEEDLE OPERATOR & DPA non compressible for FERNIE. TBI: Non compressible. Electronically signed by Gayle Finnegan Conversion Medical Anthropology Director Cerner at 02/04/2023 2:08 PM CDT documented in this encounter Plan of Treatment Not on file documented as of this encounter Visit Diagnoses Not on filedocumented in this encounter Care Teams Die Repairer Trimmer Dies Relationship Specialty Start Date End Date Jay Howell MD [address] [place] [phone] PCP - General Emergency Medicine 11/12/23 documented as of this encounter
--- OUTSIDE RECORDS SUMMARY | 2025-07-22 07:50 | XMS_ITS | Encounter Summary ---
Author Organization [employer] ([place], [place], [place], [place]) Address [address] [place] [address] Care Team Providers Care Speech Correction Consultant Name Role Phone Jay Howell MD Primary Care Provider [phone] Encounter Details Date Type Department Care Team (Late st Contact Info) Description 12/20/2018 Transcribed Document [facility] [place] Family Medicine [address] [place] [address] ProviderJessie MD [address] [place] [address] Social History Tobacco Use Types Packs/Day Years Used Date Smoking Tobacco: Never Assessed Comments Unknown Sex and Gender Information Value Date Recorded Sex Assigned at Not on file Legal Sex Female 7:30 PM CDT Gender Identity Not on file Sexual Orientation Not on file documented as of this encounter Miscellaneous Notes * Cerner Conversion Note - Historical ProviderMD - 12/20/2018 3:14 PM BOG WORKER Pain Assessment Entered On: 12/21/2018 4:53 EST [...] on filedocumented in this encounter Care Teams Speech Correction Consultant Relationship Specialty Start Date End Date Jay Howell MD [address] [place] [phone] PCP - General Emergency Medicine 11/12/23 documented as of this encounter
--- OUTSIDE RECORDS SUMMARY | 2025-07-22 07:50 | XMS_ITS | Encounter Summary ---
Author Organization [employer] ([place], [place], [place], [place]) Address [address] [place] [address] Care Team Providers Care Nursery Helper Name Role Phone Jay Howell MD Primary Care Provider [phone] Encounter Details Date Type Department Care Team (Late st Contact Info) Description 09/01/2020 Transcribed Document [facility] [place] Family Medicine [address] [place] [address] ProviderJessie MD [address] [place] [address] Social History Tobacco Use Types Packs/Day Years Used Date Smoking Tobacco: Never Assessed Comments Unknown Sex and Gender Information Value Date Recorded Sex Assigned at Not on file Legal Sex Female 7:30 PM CDT Gender Identity Not on file Sexual Orientation Not on file documented as of this encounter Miscellaneous Notes * Cerner Conversion Note - Jessie Yuen MD - 09/01/2020 9:16 AM WINDER CONTORT OPERATOR Patient: SKYLER MONTOYA Age: 79 years Sex: Female : 1940 Associated Diagnoses: None Author: Cheng Jennings, Associate Quality Engineer Cert Ms. Montoya is 79 yo female [...] on filedocumented in this encounter Care Teams Nursery Helper Relationship Specialty Start Date End Date Jay Howell MD [address] [place] [phone] PCP - General Emergency Medicine 11/12/23 documented as of this encounter
--- OUTSIDE RECORDS SUMMARY | 2025-07-22 07:50 | XMS_ITS | Clinical Summary ---
Author Organization [facility] Address [address] [place] [address] Phone Care Team Providers Care Shipping Assistant Name Role Phone Smita ESCOBEDO, Jorje Arceo [phone] [ ] Conditions or Problems Problem Name Problem Code Onset Date Status Entry Date Provider Comment Standard Description Annotate Contusion of left lower leg, subsequent encounter(s) S80.12xD (ICD-10-CM) Active Arlen Feng Contusion of left lower leg, subsequent encounter Cellulitis of LLE L03.116 (ICD-10-CM) Active Arlen Feng Cellulitis of left lower limb DM II with diabetic PVD 641074135 (SNOMED CT) Active Arlen Feng Peripheral vascular disease Benign Essential Hypertension 7816223 (SNOMED CT) Active Arlen Feng Benign essential hypertension Medications Medication Instructions Start Date Stop Date Generic Name [facility] Provider VALSARTAN 160 MG TABS 1 tablet po daily VALSARTAN 75042361650 Leti Dela Cruz ALPRAZOLAM 0.5 MG TABS Take one by mouth daily/PRN ALPRAZOLAM 54182610588 Lexi Nascimentodox VIBRAMYCIN 100 MG ORAL CAPSULE Take by mouth twice a day DOXYCYCLINE HYCLATE 18786772067 Lexi Gipson TERBINAFINE HCL 250 MG TABS Take one by mouth daily TERBINAFINE HCL 33653868113 Lexi Gipson RANEXA 1000 MG ORAL TABLET EXTENDED RELEASE 12 HOUR Take by mouth twice a day RANOLAZINE 70652089960 Lexi Gipson CLOPIDOGREL BISULFATE 75 MG TABS Take one by mouth daily CLOPIDOGREL BISULFATE 12555358120 Lexi Nascimentodox OMEPRAZOLE 40 MG CPDR Take one by mouth daily OMEPRAZOLE 72591837920 Lexi Nascimentodox NORVASC 10 MG TABS Take one by mouth daily AMLODIPINE BESYLATE 03898307085 Lexi Nascimentodox HYDROCODONE-ACET AMINOPHEN 7.5-325 MG TABS Q6H/PRN HYDROCODONE-ACET AMINOPHEN 98090285148 Lexi Nascimentodox DAILY MULTIVITAMIN CAPS Take one by mouth daily MULTIPLE VITAMINS-MINERAL S 39747332748 Lexi Nascimentodox METFORMIN HCL 500 MG TABS Take by mouth twice a day METFORMIN HCL 20964562597 Lexi Thorpex LOVENOX 60 MG/0.6ML SUBCUTANEOUS SOLUTION 70 mg, SubCutaneous, Q12H ENOXAPARIN SODIUM 46013424701 Lexi Nascimentodox LOSARTAN POTASSIUM 100 MG TABS Take one by mouth daily LOSARTAN POTASSIUM 03037037060 Lexi Nascimentodox ACIDOPHILUS LACTOBACILLUS CAPS Take two by mouth daily LACTOBACILLUS 72299309523 Lexi Gipson HYDRALAZINE HCL 50 MG TABS 2 Tab, Oral, BID HYDRALAZINE HCL 18932463481 Lexi Thorpex DORZOLAMIDE HCL 2 % SOLN 1 Drop, Eye Right, BID DORZOLAMIDE HCL 74573761332 Lexi Nascimentodox WARFARIN SODIUM 3 MG TABS Take one by mouth daily WARFARIN SODIUM 73643149264 Lexi Nascimentodox CARVEDILOL 6.25 MG TABS Take one by mouth 3 times daily, morning, afternoon and evening. CARVEDILOL 71666247565 Lexi Nascimentodox ATORVASTATIN CALCIUM 80 MG TABS Take one by mouth daily ATORVASTATIN CALCIUM 33125753383 Lexi Gipson AMOXICILLIN-POT CLAVULANATE 875-125 MG TABS Take by mouth twice a day AMOXICILLIN-POT CLAVULANATE 22142028707 Lexi Gipson Medications Administered No information available. [...]
--- OUTSIDE RECORDS SUMMARY | 2025-07-22 07:50 | XMS_ITS | Encounter Summary ---
Author Organization [employer] ([place], [place], [place], [place]) Address [address] [place] [address] Care Team Providers Care Client Solutions Director Name Role Phone Jay Howell MD Primary Care Provider [phone] Encounter Details Date Type Department Care Team (Late st Contact Info) Description 08/29/2020 Transcribed Document [facility] [place] [address] [place] [address] ProviderJessie MD [address] [place] [address] Social History Tobacco Use Types Packs/Day Years Used Date Smoking Tobacco: Never Assessed Comments Unknown Sex and Gender Information Value Date Recorded Sex Assigned at Not on file Legal Sex Female 7:30 PM CDT Gender Identity Not on file Sexual Orientation Not on file documented as of this encounter Miscellaneous Notes * Cerner Conversion Note - Jessie ProviderMD - 08/29/2020 2:00 AM ROOFING LABORER Comptometer Operator Details Entered On: 08/29/2020 6:08 EST Performed [...] 08/29/2020 6:07 EST Electronically signed by Sivan [facility] Conversion Application Programmer Analyst Cerner at 02/04/2023 1:58 PM CDT documented in this encounter Plan of Treatment Not on file documented as of this encounter Visit Diagnoses Not on filedocumented in this encounter Care Teams Client Solutions Director Relationship Specialty Start Date End Date Jay Howell MD [address] [place] [phone] PCP - General Emergency Medicine 11/12/23 documented as of this encounter
--- OUTSIDE RECORDS SUMMARY | 2025-07-22 07:50 | XMS_ITS | Encounter Summary ---
Author Organization [employer] ([place], [place], [place], [place]) Address [address] [place] [address] Care Team Providers Care Medical Record Transcriber Name Role Phone Jay Howell MD Primary Care Provider [phone] Encounter Details Date Type Department Care Team (Late st Contact Info) Description 12/20/2018 Transcribed Document [facility] [place] Family Medicine [address] [place] [address] ProviderJessie MD [address] [place] [address] Social History Tobacco Use Types Packs/Day Years Used Date Smoking Tobacco: Never Assessed Comments Unknown Sex and Gender Information Value Date Recorded Sex Assigned at Not on file Legal Sex Female 7:30 PM CDT Gender Identity Not on file Sexual Orientation Not on file documented as of this encounter Miscellaneous Notes * Cerner Conversion Note - Historical ProviderMD - 12/20/2018 12:01 PM ASSEMBLER SEAT Care Management Assessment/Plan Entered On: 12/21/2018 9:37 EST Performed On: 12/21/2018 9:36 EST by ANISH BRAN RN Care Management Note Care Management Note : Discharging today Documentation Status Complete : Yes ANISH BRAN RN - 12/21/2018 9:36 EST Electronically signed by Abel Finnegan Conversion Administrative Services Coordinator Cerner at 02/04/2023 1:57 PM CDT documented in this encounter Plan of Treatment Not on file documented as of this encounter Visit Diagnoses Not on filedocumented in this encounter Care Teams Medical Record Transcriber Relationship Specialty Start Date End Date Jay Howell MD [address] [place] [phone] PCP - General Emergency Medicine 11/12/23 documented as of this encounter
--- OUTSIDE RECORDS SUMMARY | 2025-07-22 07:50 | XMS_ITS | Encounter Summary ---
Author Organization [employer] ([place], [place], [place], [place]) Address [address] [place] [address] Care Team Providers Care Franchise Business Consultant Name Role Phone aJy Howell MD Primary Care Provider [phone] Encounter Details Date Type Department Care Team (Late st Contact Info) Description 08/31/2020 Transcribed Document [facility] [place] [address] [place] [address] ProviderJessie MD [address] [place] [address] Social History Tobacco Use Types Packs/Day Years Used Date Smoking Tobacco: Never Assessed Comments Unknown Sex and Gender Information Value Date Recorded Sex Assigned at Not on file Legal Sex Female 7:30 PM CDT Gender Identity Not on file Sexual Orientation Not on file documented as of this encounter Miscellaneous Notes * Cerner Conversion Note - Jessie Yuen MD - 08/31/2020 10:44 AM DEFENSIVE FIRE CONTROL SYSTEMS OPERATOR Patient: SKYLER MONTOYA Age: 79 years [...] level of muscle per surgery *Operation RIGHT MODULAR HOME CREW MEMBER access - ultrasound guided Aortogram with LEFT lower extremity run-off LEFT PT angioplasty (2.5-8f284mo Nanocross) LEFT peroneal angioplasty (2.5-6e548tc Nanocross) RIGHT MODULAR HOME CREW MEMBER closure (Angioseal) LEFT leg debridement 08/31/20 seen [...] Level 3.8 mmol/L 08/30/2020 04:13 MICRO: ACC: [id number] ORDER: Culture Anaerobic DATE: 08/26/2020 13:56 SOURCE: Surgical Swab SITE: Leg Lower L Reports Final 08/31/2020 07:45 No Anaerobic growth Pre 08/28/2020 07:01 No Anaerobic growth Pre 08/27/2020 07:47 Culture in progress == ACC: [id number] ORDER: Culture Blood DATE: 08/25/2020 05:01 SOURCE: Blood SITE: Reports Final 08/30/2020 06:01 No growth at 5 days. Pre 08/29/2020 06:01 No growth at 4 days. Pre 08/28/2020 06:01 No growth at 3 days. Pre 08/27/2020 06:01 No growth at 2 days. Pre 08/26/2020 06:01 No growth at 1 day. Pre 08/25/2020 23:02 Culture less than 24 Hrs old == ACC: [id number] ORDER: Culture Blood DATE: 08/25/2020 05:01 SOURCE: Blood SITE: Reports Final 08/30/2020 06:01 No growth at 5 days. Pre 08/29/2020 06:02 No growth at 4 days. Pre 08/28/2020 06:01 No growth at 3 days. Pre 08/27/2020 06:01 No growth at 2 days. Pre 08/26/2020 06:01 No growth at 1 day. Pre 08/25/2020 23:02 Culture less than 24 Hrs old == ACC: [id number] ORDER: Culture Wound and Stain DATE: 08/26/2020 15:23 SOURCE: Surgical Swab SITE: Leg Lower L Reports Final 08/29/2020 08:29 No growth Pre 08/27/2020 07:14 No growth GS 08/26/2020 18:13 Few White Blood Cells No organisms seen. == ACC: [id number] ORDER: Culture Wound and Stain DATE: 08/25/2020 05:00 SOURCE: Wound SITE: Leg Lower L Reports Final 08/28/2020 08:57 No growth Pre 08/26/2020 06:23 No growth GS 08/25/2020 07:26 No organisms seen. Few White Blood Cells Rare epithelial cells == ACC: [id number] ORDER: Culture AFB and Stain DATE: 08/26/2020 13:56 SOURCE: Surgical Swab SITE: Leg Lower L Reports AFS 08/27/2020 13:07 No Acid Fast Bacilli seen == ACC: [id number] ORDER: Culture Fungus DATE: 08/26/2020 13:56 SOURCE: [...] closely after discharge Electronically signed by Sivan [facility] Conversion Package Lift Operator Cerner at 02/04/2023 2:11 PM CDT documented in this encounter Plan of Treatment Not on file documented as of this encounter Visit Diagnoses Not on filedocumented in this encounter Care Teams Franchise Business Consultant Relationship Specialty Start Date End Date Jay Howell MD [address] [place] [phone] PCP - General Emergency Medicine 11/12/23 documented as of this encounter
--- OUTSIDE RECORDS SUMMARY | 2025-07-22 07:50 | XMS_ITS | Encounter Summary ---
Author Organization [employer] ([place], [place], [place], [place]) Address [address] [place] [address] Care Team Providers Care Anthropology And Archeology Instructor Name Role Phone Jay Howell MD Primary Care Provider [phone] Encounter Details Date Type Department Care Team (Late st Contact Info) Description 12/14/2018 Transcribed Document [facility] [place] [facility] [place] [address] [place] [address] ProviderJessie MD [address] [place], [place] [address] Social History Tobacco Use Types Packs/Day Years Used Date Smoking Tobacco: Never Assessed Comments Unknown Sex and Gender Information Value Date Recorded Sex Assigned at Not on file Legal Sex Female 7:30 PM CDT Gender Identity Not on file Sexual Orientation Not on file documented as of this encounter Miscellaneous Notes * [employer] Conversion Note - Jessie ProviderMD - 12/14/2018 4:47 PM ADULT HIGH SCHOOL INSTRUCTOR CR Chest 2 Vws Ordered: 12/12/2018 Auth (Verified) Reason for Exam: cp 12/13/2018 11:39 12/14/2018 16:47 (FLORENTIN CAMARGO) No further action required documented in this encounter Plan of Treatment Not on file documented as of this encounter Visit Diagnoses Not on filedocumented in this encounter Care Teams Anthropology And Archeology Instructor Relationship Specialty Start Date End Date Jay Howell MD [address] [place] [phone] PCP - General Emergency Medicine 11/12/23 documented as of this encounter
--- OUTSIDE RECORDS SUMMARY | 2025-07-22 07:50 | XMS_ITS | Encounter Summary ---
Author Organization [employer] ([place], [place], [place], [place]) Address [address] [place] [address] Care Team Providers Care Pipe Cutter Name Role Phone Jay Howell MD Primary Care Provider [phone] Encounter Details Date Type Department Care Team (Late st Contact Info) Description 09/01/2020 Transcribed Document [facility] [place] Family Medicine [address] [place] [address] ProviderJessie MD [address] [place] [address] Social History Tobacco Use Types Packs/Day Years Used Date Smoking Tobacco: Never Assessed Comments Unknown Sex and Gender Information Value Date Recorded Sex Assigned at Not on file Legal Sex Female 7:30 PM CDT Gender Identity Not on file Sexual Orientation Not on file documented as of this encounter Miscellaneous Notes * Cerner Conversion Note - Jessie Yuen MD - 09/01/2020 9:57 AM PARTS AND SERVICE MANAGER TARA CHEN, [address] [facility] [id number] Re: SKYLER MONTOYA Date of Visit: 08/25/2020 [...] is strictly prohibited. Sincerely, KAREN PUTNAM [address] [facility] [address] [place] [id number] The following document(s) were included in the letter: September 01, 2020 09:27:18 EST - (09/01/2020) Discharge Note documented in this encounter Plan of Treatment Not on file documented as of this encounter Visit Diagnoses Not on filedocumented in this encounter Care Teams Pipe Cutter Relationship Specialty Start Date End Date Jay Howell MD [address] [place] [phone] PCP - General Emergency Medicine 11/12/23 documented as of this encounter
--- OUTSIDE RECORDS SUMMARY | 2025-07-22 07:50 | XMS_ITS | Encounter Summary ---
Author Organization [employer] ([place], [place], [place], [place]) Address [address] [place] [address] Care Team Providers Care Web Marketing Manager Name Role Phone Jay Howell MD Primary Care Provider [phone] Encounter Details Date Type Department Care Team (Late st Contact Info) Description 12/21/2018 Transcribed Document [facility] [place] Family Medicine [facility] [place] [address] ProviderJessie MD [address] [place] [id number] Social History Tobacco Use Types Packs/Day Years Used Date Smoking Tobacco: Never Assessed Comments Unknown Sex and Gender Information Value Date Recorded Sex Assigned at Not on file Legal Sex Female 7:30 PM CDT Gender Identity Not on file Sexual Orientation Not on file documented as of this encounter Miscellaneous Notes * Cerner Conversion Note - Historical MD Alpa - 12/21/2018 7:18 AM AIRLINE HOSTESS Patient: SKYLER MONTOYA Age: 77 years Sex: [...] of motion, Normal strength. Integumentary: Warm, Dry, [place]. Neurologic: Alert, Oriented. Psychiatric: Cooperative, Appropriate mood & affect. Results Review Telemetry DEC 21 04:17 140 110 10 / H 153 3.8 22 0.70 \ DEC 21 04:17 \ 11.5 / 7.2 L 150 / 35.7 \ [facility] 12/20/18; Dr. Fredy Pacheco TECHNIQUE: A 5/6-Indonesian sheath placed in the right femoral artery. Right iliac artery angiography was performed using a JR4 diagnostic catheter due to difficulty in advancing safety J-wire across the proximal right common iliac artery. Angiography revealed patent iliac artery with a kink proximally. There is no pressure gradient across the kink. The short 6-Indonesian sheath was switched out for a 25 cm 6-Indonesian Arrow sheath with the sheath tip into the abdominal aorta for angiography and percutaneous intervention. JL4, JR4 diagnostic catheters were used for selective angiography of the nikolski vessels. JR4 diagnostic catheter was used for selective angiography of the bypass grafts. A 6-Indonesian pigtail catheter was advanced in the left [...] additional 162 mg of aspirin in the drop crew laborer. She was given Aggrastat bolus. Patient [...] on filedocumented in this encounter Care Teams Web Marketing Manager Relationship Specialty Start Date End Date Jay Howell MD [address] [place] [phone] PCP - General Emergency Medicine 11/12/23 documented as of this encounter
--- OUTSIDE RECORDS SUMMARY | 2025-07-22 07:50 | XMS_ITS | Encounter Summary ---
Author Organization [employer] ([place], [place], [place], [place]) Address [address] [place] [address] Care Team Providers Care Head Chef Name Role Phone Jay Howell MD Primary Care Provider [phone] Encounter Details Date Type Department Care Team (Late st Contact Info) Description 09/01/2020 Transcribed Document [facility] [place] Family Medicine [address] [place] [address] ProviderJessie MD [address] [place] [address] Social History Tobacco Use Types Packs/Day Years Used Date Smoking Tobacco: Never Assessed Comments Unknown Sex and Gender Information Value Date Recorded Sex Assigned at Not on file Legal Sex Female 7:30 PM CDT Gender Identity Not on file Sexual Orientation Not on file documented as of this encounter Miscellaneous Notes * Cerner Conversion Note - Jessie ProviderMD - 09/01/2020 1:18 PM EXPLOSIVES ENGINEER On Going Discharge Planning Entered On: 09/01/2020 13:19 EST Performed On: 09/01/2020 13:18 EST by KAVITA PELLETIER RN-Center MgrMill Roll Rewinder Progress Note Discharge Arrangements : Patient Post-Acute Information Patient Name: SKYLER MONTOYA Gender: Female : 38 Age: 79 Years [place] Referral(s): Service: Organization: Business Address: Phone Number: [address], [address] Discharge Options Discussed with Patient [...] Attend Multidisciplinary Rounds? : Yes KAVITA PELLETIER RN-Center Mgr - 09/01/2020 13:18 EST Electronically signed by [facility], [facility] Conversion Power Station Operator Cerner at 02/04/2023 2:00 PM CDT documented in this encounter Plan of Treatment Not on file documented as of this encounter Visit Diagnoses Not on filedocumented in this encounter Care Teams Head Chef Relationship Specialty Start Date End Date aJy Howell MD [address] [place] [phone] PCP - General Emergency Medicine 11/12/23 documented as of this encounter
--- OUTSIDE RECORDS SUMMARY | 2025-07-22 07:50 | XMS_ITS | Encounter Summary ---
Author Organization [employer] ([place], [place], [place], [place]) Address [address] [place] [address] Care Team Providers Care Denture Contour Wire Specialist Name Role Phone Jay Howell MD Primary Care Provider [phone] Encounter Details Date Type Department Care Team (Late st Contact Info) Description 12/20/2018 Transcribed Document [facility] [place] [address] [place] [address] ProviderJessie MD [address] [place] [address] Social History Tobacco Use Types Packs/Day Years Used Date Smoking Tobacco: Never Assessed Comments Unknown Sex and Gender Information Value Date Recorded Sex Assigned at Not on file Legal Sex Female 7:30 PM CDT Gender Identity Not on file Sexual Orientation Not on file documented as of this encounter Miscellaneous Notes * Cerner Conversion Note - Historical ProviderMD - 12/20/2018 1:13 PM OUTREACH REPRESENTATIVE Advance Directive Entered On: 12/20/2018 13:35 EST Performed On: 12/20/2018 13:13 EST by ARTHUR HONEYCUTT Advance Directive Patient has Advance Directive *Q : No, patient requests assist formulating Advance Directive Patient Given Information about AD : Yes Advance Directive Comment : Provided advance directive info. ARTHUR HONEYCUTT - 12/20/2018 13:35 EST Electronically signed by [facility] Conversion Bowl Turner Cerner at 02/04/2023 1:55 PM CDT documented in this encounter Plan of Treatment Not on file documented as of this encounter Visit Diagnoses Not on filedocumented in this encounter Care Teams Denture Contour Wire Specialist Relationship Specialty Start Date End Date Jay Howell MD [address] [place] [phone] PCP - General Emergency Medicine 11/12/23 documented as of this encounter
--- OUTSIDE RECORDS SUMMARY | 2025-07-22 07:50 | XMS_ITS | Encounter Summary ---
Author Organization [employer] ([place], [place], [place], [place]) Address [address] [place] [address] Care Team Providers Care Waterproofer Helper Name Role Phone Jay Howell MD Primary Care Provider [phone] Encounter Details Date Type Department Care Team (Late st Contact Info) Description 12/21/2018 Transcribed Document [facility] [place] [address] [place] [address] ProviderJessie MD [address] [place] [address] Social History Tobacco Use Types Packs/Day Years Used Date Smoking Tobacco: Never Assessed Comments Unknown Sex and Gender Information Value Date Recorded Sex Assigned at Not on file Legal Sex Female 7:30 PM CDT Gender Identity Not on file Sexual Orientation Not on file documented as of this encounter Miscellaneous Notes * Cerner Conversion Note - Jessie ProviderMD - 12/21/2018 9:33 AM POULTRY EVISCERATOR Care Management Assessment/Plan Entered On: 12/21/2018 9:34 EST Performed On: 12/21/2018 9:33 EST by ANISH BRAN RN Care Management Note Care Management Note Report : ANISH BRAN RN - 12/21/18 09:37:01 Discharging today ANISH BRAN RN - 12/21/2018 12:24 EST Care Management Note : Order for cardiac rehab to the program at [facility] - they will ocntact pt Documentation Status Complete : Yes ANISH BRAN RN - 12/21/2018 9:33 EST Discharge Planning Details Discharge Home : Home with spouse/significant other Discharge Placement Needs : Home Persons Assisting Patient at Home : Spouse Transportation Needs : Family/Friend ANISH BRAN RN - 12/21/2018 9:33 EST Final Discharge Disposition Note-CM Discharge To Care Management : Home/Residential/Half-Way or Self Care -01 ANISH BRAN RN - 12/21/2018 9:33 EST Electronically signed by [facility], [facility] Conversion Crop Or Grain Farmworker Cerner at 02/04/2023 2:07 PM CDT documented in this encounter Plan of Treatment Not on file documented as of this encounter Visit Diagnoses Not on filedocumented in this encounter Care Teams Waterproofer Helper Relationship Specialty Start Date End Date Jay Howell MD [address] [place] [phone] PCP - General Emergency Medicine 11/12/23 documented as of this encounter
--- OUTSIDE RECORDS SUMMARY | 2025-07-22 07:50 | XMS_ITS | Encounter Summary ---
Author Organization [employer] ([place], [place], [place], [place]) Address [address] [place] [address] Care Team Providers Care Bearing Machine Operator Name Role Phone Jay Howell MD Primary Care Provider [phone] Encounter Details Date Type Department Care Team (Late st Contact Info) Description 12/20/2018 Transcribed Document [facility] [place] [place] Family Medicine [address] [place] [address] ProviderJessie MD [address] [place] [address] Social History Tobacco Use Types Packs/Day Years Used Date Smoking Tobacco: Never Assessed Comments Unknown Sex and Gender Information Value Date Recorded Sex Assigned at Not on file Legal Sex Female 7:30 PM CDT Gender Identity Not on file Sexual Orientation Not on file documented as of this encounter Miscellaneous Notes * Cerner Conversion Note - Jessie ProviderMD - 12/20/2018 9:47 PM LIFE COACH Rapid Response Team Documentation Entered On: 12/20/2018 [...] Admission Diagnosis : 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 EKG shows no ST elevation. Cardiac MAINTENANCE OPERATOR notified. elevated blood pressure as well. nitro ordered and given. chest pain subsided. Patient Condition at End of Event : No S/S of Acute Distress Patient Disposition Post Event : No change in location/level of care Rapid Response Bearing Machine Operator #1 : LO THEODORE RN BENGE, MELISSA V, RN - 12/20/2018 22:51 EST Rapid Response Systems Assessment Oxygen Therapy Mode : Nasal cannula Oxygen Flow Rate : 2 Liter/Min Cardiovascular Symptoms : Chest discomfort at rest Heart Rhythm : Regular Cardiac Rhythm : Normal sinus rhythm LO THEODORE RN - 12/20/2018 22:51 EST Electronically signed by [facility], [facility] Conversion Consumer Loan Manager Cerner at 02/04/2023 2:10 PM CDT documented in this encounter Plan of Treatment Not on file documented as of this encounter Visit Diagnoses Not on filedocumented in this encounter Care Teams Bearing Machine Operator Relationship Specialty Start Date End Date Jay Howell MD [address] [place] [phone] PCP - General Emergency Medicine 11/12/23 documented as of this encounter
--- OUTSIDE RECORDS SUMMARY | 2025-07-22 07:50 | XMS_ITS | Encounter Summary ---
Author Organization [employer] ([place], [place], [place], [place]) Address [address] [place] [address] Care Team Providers Care Geospatial Applications Developer Name Role Phone Jay Howell MD Primary Care Provider [phone] Encounter Details Date Type Department Care Team (Late st Contact Info) Description 08/29/2020 Transcribed Document [facility] [place] [facility] [place] [address] ProviderJessie MD [address] [place] [address] Social History Tobacco Use Types Packs/Day Years Used Date Smoking Tobacco: Never Assessed Comments Unknown Sex and Gender Information Value Date Recorded Sex Assigned at Not on file Legal Sex Female 7:30 PM CDT Gender Identity Not on file Sexual Orientation Not on file documented as of this encounter Miscellaneous Notes * Cerner Conversion Note - Historical ProviderMD - 08/29/2020 1:32 PM SENIOR SUPPLIER QUALITY ENGINEER Discharge Summary, PT Entered On: 08/29/2020 13:33 [...] - 08/29/2020 13:32 EST Electronically signed by [facility] Conversion Die Maker Bench Stamping Cerner at 02/04/2023 2:09 PM CDT documented in this encounter Plan of Treatment Not on file documented as of this encounter Visit Diagnoses Not on filedocumented in this encounter Care Teams Geospatial Applications Developer Relationship Specialty Start Date End Date Jay Howell MD [address] [place] [phone] PCP - General Emergency Medicine 11/12/23 documented as of this encounter
--- OUTSIDE RECORDS SUMMARY | 2025-07-22 07:50 | XMS_ITS | Encounter Summary ---
Author Organization [facility] ([place], [place], [place], [place]) Address [address] [place] [address] Care Team Providers Care Dye Jig Operator Name Role Phone Jay Howell MD Primary Care Provider [phone] Encounter Details Date Type Department Care Team (Late st Contact Info) Description 12/21/2018 Transcribed Document [facility] [place] Family Medicine [facility] [place] [address] ProviderJessie MD [address] [place] [address] Social History Tobacco Use Types Packs/Day Years Used Date Smoking Tobacco: Never Assessed Comments Unknown Sex and Gender Information Value Date Recorded Sex Assigned at Not on file Legal Sex Female 7:30 PM CDT Gender Identity Not on file Sexual Orientation Not on file documented as of this encounter Miscellaneous Notes * Cerner Conversion Note - Jessie Yuen MD - 12/21/2018 11:48 AM CAREER SERVICES DIRECTOR [address] , [place], [place] [id number] Patient Copy Patient Information: Name: SKYLER MONTOYA Current Date: 12/21/2018 11:48:11 : 1940 Patient Address: [address] [place] [id number] Patient Attending Physician: FREDY YAÑEZ MD-CAR Primary Care Provider: TARA CHEN (REF), -MED Primary Care Provider Discharge Diagnosis: CAD (coronary artery disease); DM (diabetes mellitus); Exertional angina; HLD (hyperlipidemia); HTN (hypertension); Hx of CABG; DANTE (obstructive sleep apnea); Paroxysmal A-fib Weight on Admission: 158 lb, 0 oz Comment: Follow-up Instructions: With: Address: When: [facility] [address], [place] [address] Business (1) In 1 month 01/21/2019 With: Address: When: [facility] [address], [address] [place], [place] [id number] Business (1) Within 2 to 5 weeks [...] What foods can I eat? GrainsBreads, including Tamazight, white, jie, wheat, raisin, rye, oatmeal, and Welsh. Tortillas that are neither fried nor made with lard or trans fat. Low-fat rolls, including hotdog and hamburger buns and Wallisian muffins. Biscuits. Muffins. Waffles. Pancakes. Light popcorn. Whole-grain cereals. Flatbread. [place] toast. Pretzels. Breadsticks. Rusks. Low-fat snacks. Low-fat [...] cottage cheese. Whole-milk cheeses, including blue (fredo), [place] Armand, Brie, Nate, Israeli, Havarti, Saudi Arabian, cheddar, Camembert, and [place]. Whole or 2% milk that is liquid, [...] that has suet, meat fat, or shortening. [place] butter, hydrogenated oils, palm oil, coconut oil, [...] can cause a heart attack (myocardial infarction, [place]). CAD is a leading cause of for [...] 12/25/2012 Document Revised: 03/10/2017 Document Reviewed: 02/04/2015 Com[employer] Serve Interactive Patient Education ? 2017 [employer]. Groin Site Care Refer to this [...] Document Reviewed: 11/05/2011 ExitCare? Patient Information ?2013 [employer]. Angiogram An angiogram, also called angiography, is [...] including vitamins, herbs, eye drops, creams, and ndig-qbz-ifpojfy medicines. ??? Any problems you or family [...] 03/06/2014 Elsevier Interactive Patient Education ? 2017 [employer]. Medication Leaflets: valsartan (elin LILY foster) [...] valsartan; ?? if you are on a mvv-qplx-dhwa; ?? if you are dehydrated; or ?? [...] may report side effects to FDA at 6-022-GOU-4982. What other drugs will affect valsartan? Tell [...] may interact with valsartan, including prescription and uhha-aey-renyiny medicines, vitamins, and herbal products. Not all [...] to ensure that the information provided by [employer]. ('Multum') is accurate, up-to-date, and complete, but no guarantee is made to that effect. Drug information contained herein may be time sensitive. [employer] information has been compiled for use by healthcare practitioners and consumers in the [place] and therefore [employer] does not warrant that uses outside of the [place] are appropriate, unless specifically indicated otherwise. [employer]'s drug information does not endorse drugs, diagnose patients or recommend therapy. [employer]'s drug information is an informational resource designed [...] effective or appropriate for any given patient. [facility] does not assume any responsibility for any aspect of healthcare administered with the aid of information [facility] provides. The information contained herein is not intended to cover all possible uses, directions, precautions, warnings, drug interactions, allergic reactions, or adverse effects. If you have questions about the drugs you are taking, check with your doctor, nurse or pharmacist. Copyright 4987-2477 [facility]. Version: 16.05. Revision Date: 09/08/2016. hydralazine (bob [...] may report side effects to FDA at 7-345-WFE-0420. What other drugs will affect hydralazine? Tell your doctor about all your current medicines and any you start or stop using, especially: ? diazoxide (an injectable blood pressure medication); or ?? an MAO inhibitor--isocarboxazid, linezolid, methylene blue injection, phenelzine, rasagiline, selegiline, tranylcypromine, and others. This list is not complete. Other drugs may interact with hydralazine, including prescription and reby-evv-gwyxmjl medicines, vitamins, and herbal products. Not all [...] to ensure that the information provided by [employer]. ('Multum') is accurate, up-to-date, and complete, but no guarantee is made to that effect. Drug information contained herein may be time sensitive. [employer] information has been compiled for use by healthcare practitioners and consumers in the [place] and therefore [employer] does not warrant that uses outside of the [place] are appropriate, unless specifically indicated otherwise. [employer]'s drug information does not endorse drugs, diagnose patients or recommend therapy. [employer] drug information is an informational resource designed [...] effective or appropriate for any given patient. [employer] does not assume any responsibility for any aspect of healthcare administered with the aid of information [employer] provides. The information contained herein is not intended to cover all possible uses, directions, precautions, warnings, drug interactions, allergic reactions, or adverse effects. If you have questions about the drugs you are taking, check with your doctor, nurse or pharmacist. Copyright 8861-4087 [employer]. Version: 5.01. Revision Date: 10/26/2017. amlodipine (am [...] may report side effects to FDA at 3-419-CMB-0525. What other drugs will affect amlodipine? Tell your doctor about all your current medicines and any you start or stop using, especially: ? nitroglycerin; ?? simvastatin (Zocor, Simcor, Vytorin); or ?? any other heart or blood pressure medications. This list is not complete. Other drugs may interact with amlodipine, including prescription and ezey-khs-syqavlm medicines, vitamins, and herbal products. Not all [...] to ensure that the information provided by [employer]. ('Multum') is accurate, up-to-date, and complete, but no guarantee is made to that effect. Drug information contained herein may be time sensitive. [employer] information has been compiled for use by healthcare practitioners and consumers in the [place] and therefore [employer] does not warrant that uses outside of the [place] are appropriate, unless specifically indicated otherwise. [employer] drug information does not endorse drugs, diagnose patients or recommend therapy. [employer] drug information is an informational resource designed [...] effective or appropriate for any given patient. [employer] does not assume any responsibility for any aspect of healthcare administered with the aid of information [employer] provides. The information contained herein is not intended to cover all possible uses, directions, precautions, warnings, drug interactions, allergic reactions, or adverse effects. If you have questions about the drugs you are taking, check with your doctor, nurse or pharmacist. Copyright 9887-0576 [employer]. Version: 14.. Revision Date: 01/24/2017. clopidogrel (kloe [...] may report side effects to FDA at 9-721-XJG-6866. What other drugs will affect clopidogrel? Certain other medicines may increase your risk of bleeding, including aspirin. Avoid taking aspirin unless your doctor tells you to. Tell your doctor about all your other medicines, especially: ? any other medicines to treat or prevent blood clots; ?? a stomach acid crime lab analyst such as omeprazole, Nexium, or Prilosec; ?? an antidepressant; ?? an opioid medication; ?? a blood thinner--warfarin, Coumadin, Jantoven; or ?? NSAIDs (nonsteroidal anti-inflammatory drugs)--ibuprofen (Advil, Motrin), naproxen (Aleve), celecoxib, diclofenac, indomethacin, meloxicam, and others. This list is not complete. Other drugs may affect clopidogrel, including prescription and ivso-uwj-ywabrxn medicines, vitamins, and herbal products. Not all [...] to ensure that the information provided by [employer]. ('Multum') is accurate, up-to-date, and complete, but no guarantee is made to that effect. Drug information contained herein may be time sensitive. [employer] information has been compiled for use by healthcare practitioners and consumers in the [place] and therefore [employer] does not warrant that uses outside of the [place] are appropriate, unless specifically indicated otherwise. [employer]'s drug information does not endorse drugs, diagnose patients or recommend therapy. [employer] drug information is an informational resource designed [...] effective or appropriate for any given patient. [employer] does not assume any responsibility for any aspect of healthcare administered with the aid of information [employer] provides. The information contained herein is not intended to cover all possible uses, directions, precautions, warnings, drug interactions, allergic reactions, or adverse effects. If you have questions about the drugs you are taking, check with your doctor, nurse or pharmacist. Copyright 0281-4759 [employer]. Version: 15.01. Revision Date: 08/07/2018. ranolazine (ra [...] following drugs: ? clarithromycin; ?? nefazodone; ?? Pacheco's wort; ?? antifungal medicine--itraconazole, ketoconazole; ?? HIV [...] may report side effects to FDA at 3-631-ICM-8436. What other drugs will affect ranolazine? Many [...] interact with ranolazine. This includes prescription and hkxd-ayp-qxqkxbe medicines, vitamins, and herbal products. Give a [...] to ensure that the information provided by [employer]. ('Multum') is accurate, up-to-date, and complete, but no guarantee is made to that effect. Drug information contained herein may be time sensitive. [employer] information has been compiled for use by healthcare practitioners and consumers in the [place] and therefore [employer] does not warrant that uses outside of the [place] are appropriate, unless specifically indicated otherwise. [employer]'s drug information does not endorse drugs, diagnose patients or recommend therapy. [employer] drug information is an informational resource designed [...] effective or appropriate for any given patient. [employer] does not assume any responsibility for any aspect of healthcare administered with the aid of information [employer] provides. The information contained herein is not intended to cover all possible uses, directions, precautions, warnings, drug interactions, allergic reactions, or adverse effects. If you have questions about the drugs you are taking, check with your doctor, nurse or pharmacist. Copyright 9778-5734 [employer]. Version: 11.. Revision Date: 12/04/2015. CIGARETTE SMOKING: The facts are clear, cigarette smoking will shorten your life. Smoking can cause many illnesses along the way. As a healthcare provider, we recommend that you stop smoking. Assistance with quitting is available by contacting 7-592-KWQD-NOW. This is a free resource providing counseling, [...] Be sure to sign up for the [employer] patient portal, which gives you 09/05 access to your medical information ??? including these discharge instructions ??? using your computer, smartphone, or tablet. Just go to Portr to get started. Questions? Call . [facility] would like to thank you for allowing us to assist you with your healthcare needs. MICHELE Skaggs JUDY D, (or fundraising sale representative) have received the above patient education materials/instructions and have verbalized understanding: Patient Signature _ Date/Time Patient Transcribing Machine Mechanic Signature (if needed) Date/Time Clinician/Hospital Transcribing Machine Mechanic Signature (if needed) Date/Time Electronically signed by [facility], [facility] Conversion Nonprofit Financial Controller Cerner at 02/04/2023 1:58 PM CDT documented in this encounter Plan of Treatment Not on file documented as of this encounter Visit Diagnoses Not on filedocumented in this encounter Care Teams Dye Jig Operator Relationship Specialty Start Date End Date Jay Howell MD [address] [place] [phone] PCP - General Emergency Medicine 11/12/23 documented as of this encounter
--- OUTSIDE RECORDS SUMMARY | 2025-07-22 07:50 | XMS_ITS | Encounter Summary ---
Author Organization [employer] ([place], [place], [place], [place]) Address [address] [place] [address] Care Team Providers Care Air Twister Winder Name Role Phone Jay Howell MD Primary Care Provider [phone] Encounter Details Date Type Department Care Team (Late st Contact Info) Description 08/29/2020 Transcribed Document [facility] [place] Family Medicine [address] [place] [address] ProviderJessie MD [address] [place] [address] Social History Tobacco Use Types Packs/Day Years Used Date Smoking Tobacco: Never Assessed Comments Unknown Sex and Gender Information Value Date Recorded Sex Assigned at Not on file Legal Sex Female 7:30 PM CDT Gender Identity Not on file Sexual Orientation Not on file documented as of this encounter Miscellaneous Notes * Cerner Conversion Note - Jessie ProviderMD - 08/29/2020 2:50 PM AIRBORNE OPERATIONS SUPERINTENDENT WOCN Inpatient Documentation Entered On: 08/29/2020 14:52 [...] Ulcer WOCN Wound Pressure Ulcer Documentation : Byemmvsin-Fgvajf-Wubd Abnormality: Leg Left Lower, Anterior on 08/29/2020 [...] filedocumented in this encounter Care Teams Air Twister Winder Relationship Specialty Start Date End Date Jay Howell MD [address] [place] [phone] PCP - General Emergency Medicine 11/12/23 documented as of this encounter
--- OUTSIDE RECORDS SUMMARY | 2025-07-22 07:50 | XMS_ITS | Encounter Summary ---
Author Organization [employer] ([place], [place], [place], [place]) Address [address] [place] [address] Care Team Providers Care Fixed Income Director Name Role Phone Jay Howell MD Primary Care Provider [phone] Encounter Details Date Type Department Care Team (Late st Contact Info) Description 09/04/2020 Transcribed Document [facility] [place] [address] [place] [address] ProviderJessie MD [address] [place] [address] Social History Tobacco Use Types Packs/Day Years Used Date Smoking Tobacco: Never Assessed Comments Unknown Sex and Gender Information Value Date Recorded Sex Assigned at Not on file Legal Sex Female 7:30 PM CDT Gender Identity Not on file Sexual Orientation Not on file documented as of this encounter Miscellaneous Notes * Cerner Conversion Note - Historical ProviderMD - 09/04/2020 4:13 AM STOPE MINER ED Event Note Entered On: 09/04/2020 4:13 EST Performed On: 09/04/2020 4:13 EST by Chinyere Leonard RN ED Event Note ED Event Date/Time : 09/04/2020 2:00 EST ED Description of Event : pt arrived during system downtime; view downtime form Chinyere Leonard RN - 09/04/2020 4:13 EST Electronically signed by Sivan [facility] Conversion Template Layout Worker Cerner at 02/04/2023 2:13 PM CDT documented in this encounter Plan of Treatment Not on file documented as of this encounter Visit Diagnoses Not on filedocumented in this encounter Care Teams Fixed Income Director Relationship Specialty Start Date End Date Jay Howell MD [address] [place] [phone] PCP - General Emergency Medicine 11/12/23 documented as of this encounter
--- OUTSIDE RECORDS SUMMARY | 2025-07-22 07:50 | XMS_ITS | Encounter Summary ---
Author Organization [employer] ([place], [place], [place], [place]) Address [address] [place] [address] Care Team Providers Care Company Manager Name Role Phone Jay Howell MD Primary Care Provider [phone] Encounter Details Date Type Department Care Team (Late st Contact Info) Description 08/29/2020 Transcribed Document [facility] [place] Family Medicine [address] [place] [address] ProviderJessie MD [address] [place], [place] [address] Social History Tobacco Use Types Packs/Day Years Used Date Smoking Tobacco: Never Assessed Comments Unknown Sex and Gender Information Value Date Recorded Sex Assigned at Not on file Legal Sex Female 7:30 PM CDT Gender Identity Not on file Sexual Orientation Not on file documented as of this encounter Miscellaneous Notes * Cerner Conversion Note - Jessie ProviderMD - 08/29/2020 1:45 PM SECOND TIME WORKER RX Interventions Entered On: 08/29/2020 15:05 EST Performed On: 08/29/2020 15:03 EST by SLICK BRADLEY [facility] Clinical Interventions Clarify Drug Order : Yes SLICK BRADLEY RP - 08/29/2020 15:03 EST Clarify Drug Order Clarify Drug Order, Order : aprin gtt as bridge therapy. S/W Leti, wt 69kg (rounded to 70kg) NO bolus per attending. Start heparin gtt at 12.6ml/h Clarify Drug Order, Value : 0 Dollar Clarify Drug Order, Time : 10 Minute(s) SLICK BRADLEY, [facility] - 08/29/2020 15:03 EST Electronically signed by [facility], [facility] Conversion Supervisor Wet End Cerner at 02/04/2023 2:17 PM CDT documented in this encounter Plan of Treatment Not on file documented as of this encounter Visit Diagnoses Not on filedocumented in this encounter Care Teams Company Manager Relationship Specialty Start Date End Date Jay Howell MD [address] [place] [phone] PCP - General Emergency Medicine 11/12/23 documented as of this encounter
--- OUTSIDE RECORDS SUMMARY | 2025-07-22 07:50 | XMS_ITS | Encounter Summary ---
Author Organization [employer] ([place], [place], [place]) Address [address] [place] [address] Care Team Providers Care Pin Setter Name Role Phone Jay Howell MD Primary Care Provider [phone] Encounter Details Date Type Department Care Team (Late st Contact Info) Description 08/31/2020 Transcribed Document [facility] [place] [address] [place] [address] ProviderJessie MD [address] [place] [address] Social History Tobacco Use Types Packs/Day Years Used Date Smoking Tobacco: Never Assessed Comments Unknown Sex and Gender Information Value Date Recorded Sex Assigned at Not on file Legal Sex Female 7:30 PM CDT Gender Identity Not on file Sexual Orientation Not on file documented as of this encounter Miscellaneous Notes * Cerner Conversion Note - Jessie Yuen MD - 08/31/2020 8:53 AM CHIEF CONTROLLER STATION Patient: SKYLER MONTOYA Age: 79 years Sex: [...] for this consult, Miladys Lopez, KellD PGY-1 Outsole Caser Pager #: [phone] Extension #: [phone] Electronically signed by Sivan [facility] Conversion Audio/Video Technician Cerner at 02/04/2023 2:02 PM CDT documented in this encounter Plan of Treatment Not on file documented as of this encounter Visit Diagnoses Not on filedocumented in this encounter Care Teams Pin Setter Relationship Specialty Start Date End Date Jay Howell MD [address] [place] [phone] PCP - General Emergency Medicine 11/12/23 documented as of this encounter
--- OUTSIDE RECORDS SUMMARY | 2025-07-22 07:50 | XMS_ITS | Encounter Summary ---
Author Organization [email or web address] ([place], [place], [place], [place]) Address [address] [place] [address] Care Team Providers Care Ux Research Associate Name Role Phone Jay Howell MD Primary Care Provider [phone] Encounter Details Date Type Department Care Team (Late st Contact Info) Description 09/01/2020 Transcribed Document [facility] [place] [facility] [place] [address] ProviderJessie MD [address] [place], [place] [address] Social History Tobacco Use Types Packs/Day Years Used Date Smoking Tobacco: Never Assessed Comments Unknown Sex and Gender Information Value Date Recorded Sex Assigned at Not on file Legal Sex Female 7:30 PM CDT Gender Identity Not on file Sexual Orientation Not on file documented as of this encounter Miscellaneous Notes * Cerner Conversion Note - Historical MD Alpa - 09/01/2020 9:27 AM CHAIR AND COUCH MAKER Patient: SKYLER BAUTISTA Age: 79 Years Sex: [...] [1] Summary BILATERAL: Monophasic waveforms of the TRAFFIC LAW ATTORNEY, & DPA . Unable to compress TRAFFIC LAW ATTORNEY and DPA (>220 mmHg). Toe brachial index: Non-compressible [2] RIGHT: Abnormal arterial runoff disease present starting at the level of the TRAFFIC LAW ATTORNEY. Non significant, non-flow restricting plaque noted at common femoral artery. 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 There is a significant (50-75%) stenosis of the distal TRAFFIC LAW ATTORNEY. Non significant, non-flow restricting plaque noted at DPA. TRAFFIC LAW ATTORNEY & DPA non compressible for FERNIE. TBI: Non compressible. LEFT: Abnormal arterial runoff disease present starting at the level of the TRAFFIC LAW ATTORNEY. Non significant, non-flow restricting plaque noted at common femoral artery. There is a severe (>75%) stenosis of the distal TRAFFIC LAW ATTORNEY. TRAFFIC LAW ATTORNEY & DPA non compressible for FERNIE. TBI: [...] multiple stent placements. The patient presented to [facility] ER after recent fall [...] Vitamins oral tablet 1 Tab, Oral, Daily [place] 7.5 mg-325 mg oral tablet 1 Tab, [...] -- Start: 08/26/20 17:14:00 EST, 60 gm carbs:[id number] george, Isolation: Standard Precautions, Instructions: Diabetic Diet [...] Ankle Min 3 Vws LT; Shannon Marquez, Track Grinder Operator 08/22/2020 21:21 EST [2] [facility]; ERMA ZHENG MD-AMALIA 08/25/2020 11:29 EST [3] [facility]; ERMA ZHENG MD-AMALIA 08/25/2020 11:40 EST [4] MRI Spine Lumbar WO; Leti Wakefield, MULTI MODALITY TECHNOLOGIST 08/25/2020 15:21 EST [5] CT Abdomen WO W; Gus Lopez, RCP 08/27/2020 18:06 EST [6] Admission History and Physical; BETH DAVALOS MD-INT 08/25/2020 06:23 EST documented in this encounter Plan of Treatment Not on file documented as of this encounter Visit Diagnoses Not on filedocumented in this encounter Care Teams Ux Research Associate Relationship Specialty Start Date End Date Jay Howell MD [address] [place] [phone] PCP - General Emergency Medicine 11/12/23 documented as of this encounter
--- OUTSIDE RECORDS SUMMARY | 2025-07-22 07:50 | XMS_ITS | Encounter Summary ---
Author Organization [employer] ([place], [place], [place], [place]) Address [address] [place] [address] Care Team Providers Care Property Underwriter Name Role Phone Jay Howell MD Primary Care Provider [phone] Encounter Details Date Type Department Care Team (Late st Contact Info) Description 12/21/2018 Transcribed Document [facility] [place] [facility] [place] [address] ProviderJessie MD [address] [place] [id number] Social History Tobacco Use Types Packs/Day Years Used Date Smoking Tobacco: Never Assessed Comments Unknown Sex and Gender Information Value Date Recorded Sex Assigned at Not on file Legal Sex Female 7:30 PM CDT Gender Identity Not on file Sexual Orientation Not on file documented as of this encounter Miscellaneous Notes * Cerner Conversion Note - Jessie ProviderMD - 12/21/2018 12:17 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 [address] , [place], [place] [id number] Patient Copy Patient Information: Name: SKYLER MONTOYA Current Date: 12/21/2018 12:17:17 : 1940 Patient Address: [address] [place] [id number] Patient Attending Physician: FREDY YAÑEZ MD-CAR Primary Care Provider: TRAA CHEN (REF), -MED Primary Care Provider Discharge Diagnosis: CAD (coronary artery disease); DM (diabetes mellitus); Exertional angina; HLD (hyperlipidemia); HTN (hypertension); Hx of CABG; DANTE (obstructive sleep apnea); Paroxysmal A-fib Weight on Admission: 158 lb, 0 oz Comment: Follow-up Instructions: With: Address: When: [facility] [address], [place] [address] [place] [address] Business (1) In 1 month 01/21/2019 With: Address: When: [facility] [address], [address] [place], [place] [phone] Business (1) Within 2 to 5 weeks [...] What foods can I eat? GrainsBreads, including Frisian, white, jie, wheat, raisin, rye, oatmeal, and Yakut. Tortillas that are neither fried nor made with lard or trans fat. Low-fat rolls, including hotdog and hamburger buns and Thai muffins. Biscuits. Muffins. Waffles. Pancakes. Light popcorn. Whole-grain cereals. Flatbread. [place] toast. Pretzels. Breadsticks. Rusks. Low-fat snacks. Low-fat [...] cottage cheese. Whole-milk cheeses, including blue (fredo), [place] Armand, Brie, Nate, Citizen Of [place], Havarti, Guyanese, cheddar, Camembert, and [place]. Whole or 2% milk that is liquid, [...] that has suet, meat fat, or shortening. Smith butter, hydrogenated oils, palm oil, coconut oil, [...] can cause a heart attack (myocardial infarction, NC). CAD is a leading cause of for [...] 12/25/2012 Document Revised: 03/10/2017 Document Reviewed: 02/04/2015 [employer] Interactive Patient Education ? 2017 [employer] Groin Site Care Refer to this [...] Document Reviewed: 11/05/2011 ExitCare? Patient Information ?2013 [employer]. Angiogram An angiogram, also called angiography, is [...] including vitamins, herbs, eye drops, creams, and pwsu-ryf-fcvyzjm medicines. ??? Any problems you or family [...] 07/13/2006 Document Revised: 03/16/2017 Document Reviewed: 03/06/2014 [employer] Interactive Patient Education ? 2017 [employer]. Medication Leaflets: valsartan (elin BAUTISTA foster) Rivka [...] valsartan; ?? if you are on a qqd-mxgi-aoep; ?? if you are dehydrated; or ?? [...] may report side effects to FDA at 2-810-SGA-0892. What other drugs will affect valsartan? Tell [...] may interact with valsartan, including prescription and gsfd-kbg-xvgamww medicines, vitamins, and herbal products. Not all [...] to ensure that the information provided by [employer]. ('[employer]') is accurate, up-to-date, and complete, but no guarantee is made to that effect. Drug information contained herein may be time sensitive. drumbi information has been compiled for use by healthcare practitioners and consumers in the [place] and therefore drumbi does not warrant that uses outside of the [place] are appropriate, unless specifically indicated otherwise. [employer] drug information does not endorse drugs, diagnose patients or recommend therapy. [employer] drug information is an informational resource designed [...] effective or appropriate for any given patient. drumbi does not assume any responsibility for any aspect of healthcare administered with the aid of information drumbi provides. The information contained herein is not intended to cover all possible uses, directions, precautions, warnings, drug interactions, allergic reactions, or adverse effects. If you have questions about the drugs you are taking, check with your doctor, nurse or pharmacist. Copyright 5784-2890 [employer]. Version: 16.05. Revision Date: 09/08/2016. hydralazine (bob [...] may report side effects to FDA at 8-173-AJV-2221. What other drugs will affect hydralazine? Tell your doctor about all your current medicines and any you start or stop using, especially: ? diazoxide (an injectable blood pressure medication); or ?? an MAO inhibitor--isocarboxazid, linezolid, methylene blue injection, phenelzine, rasagiline, selegiline, tranylcypromine, and others. This list is not complete. Other drugs may interact with hydralazine, including prescription and ntwp-bzb-ujodoiy medicines, vitamins, and herbal products. Not all [...] to ensure that the information provided by [employer]. ('[employer]') is accurate, up-to-date, and complete, but no guarantee is made to that effect. Drug information contained herein may be time sensitive. drumbi information has been compiled for use by healthcare practitioners and consumers in the [place] and therefore drumbi does not warrant that uses outside of the [place] are appropriate, unless specifically indicated otherwise. [employer]'s drug information does not endorse drugs, diagnose patients or recommend therapy. [employer] drug information is an informational resource designed [...] effective or appropriate for any given patient. drumbi does not assume any responsibility for any aspect of healthcare administered with the aid of information drumbi provides. The information contained herein is not intended to cover all possible uses, directions, precautions, warnings, drug interactions, allergic reactions, or adverse effects. If you have questions about the drugs you are taking, check with your doctor, nurse or pharmacist. Copyright 2449-5651 [employer]. Version: 5.01. Revision Date: 10/26/2017. amlodipine (am CAS reyes) [facility] What is the most important information I [...] may report side effects to FDA at 1-760-NBK-9989. What other drugs will affect amlodipine? Tell your doctor about all your current medicines and any you start or stop using, especially: ? nitroglycerin; ?? simvastatin (Zocor, Simcor, Vytorin); or ?? any other heart or blood pressure medications. This list is not complete. Other drugs may interact with amlodipine, including prescription and fwcs-bbl-afyijwp medicines, vitamins, and herbal products. Not all [...] to ensure that the information provided by [employer]. ('[employer]') is accurate, up-to-date, and complete, but no guarantee is made to that effect. Drug information contained herein may be time sensitive. drumbi information has been compiled for use by healthcare practitioners and consumers in the [place] and therefore drumbi does not warrant that uses outside of the [place] are appropriate, unless specifically indicated otherwise. [employer] drug information does not endorse drugs, diagnose patients or recommend therapy. [employer] drug information is an informational resource designed [...] effective or appropriate for any given patient. drumbi does not assume any responsibility for any aspect of healthcare administered with the aid of information drumbi provides. The information contained herein is not intended to cover all possible uses, directions, precautions, warnings, drug interactions, allergic reactions, or adverse effects. If you have questions about the drugs you are taking, check with your doctor, nurse or pharmacist. Copyright 8018-1427 [employer]. Version: 14.01. Revision Date: 01/24/2017. clopidogrel (kloe [...] may report side effects to FDA at 4-315-QPE-7694. What other drugs will affect clopidogrel? Certain other medicines may increase your risk of bleeding, including aspirin. Avoid taking aspirin unless your doctor tells you to. Tell your doctor about all your other medicines, especially: ? any other medicines to treat or prevent blood clots; ?? a stomach acid rectifying operator such as omeprazole, Nexium, or Prilosec; ?? an antidepressant; ?? an opioid medication; ?? a blood thinner--warfarin, Coumadin, Jantoven; or ?? NSAIDs (nonsteroidal anti-inflammatory drugs)--ibuprofen (Advil, Motrin), naproxen (Aleve), celecoxib, diclofenac, indomethacin, meloxicam, and others. This list is not complete. Other drugs may affect clopidogrel, including prescription and jxpa-mxb-ypihcpo medicines, vitamins, and herbal products. Not all [...] to ensure that the information provided by [employer]. ('[employer]') is accurate, up-to-date, and complete, but no guarantee is made to that effect. Drug information contained herein may be time sensitive. drumbi information has been compiled for use by healthcare practitioners and consumers in the [place] and therefore drumbi does not warrant that uses outside of the [place] are appropriate, unless specifically indicated otherwise. [employer] drug information does not endorse drugs, diagnose patients or recommend therapy. [employer] drug information is an informational resource designed [...] effective or appropriate for any given patient. drumbi does not assume any responsibility for any aspect of healthcare administered with the aid of information drumbi provides. The information contained herein is not intended to cover all possible uses, directions, precautions, warnings, drug interactions, allergic reactions, or adverse effects. If you have questions about the drugs you are taking, check with your doctor, nurse or pharmacist. Copyright 6620-9562 [employer]. Version: 15.01. Revision Date: 08/07/2018. ranolazine (ra [...] following drugs: ? clarithromycin; ?? nefazodone; ?? Ethan's wort; ?? antifungal medicine--itraconazole, ketoconazole; ?? HIV [...] may report side effects to FDA at 4-628-JRK-9572. What other drugs will affect ranolazine? Many [...] interact with ranolazine. This includes prescription and tvvc-rrz-stqopis medicines, vitamins, and herbal products. Give a [...] to ensure that the information provided by [employer]. ('Multum') is accurate, up-to-date, and complete, but no guarantee is made to that effect. Drug information contained herein may be time sensitive. drumbi information has been compiled for use by healthcare practitioners and consumers in the [place] and therefore drumbi does not warrant that uses outside of the [place] are appropriate, unless specifically indicated otherwise. [employer]i's drug information does not endorse drugs, diagnose patients or recommend therapy. [employer] drug information is an informational resource designed [...] effective or appropriate for any given patient. drumbi does not assume any responsibility for any aspect of healthcare administered with the aid of information drumbi provides. The information contained herein is not intended to cover all possible uses, directions, precautions, warnings, drug interactions, allergic reactions, or adverse effects. If you have questions about the drugs you are taking, check with your doctor, nurse or pharmacist. Copyright 2748-1417 [employer]. Version: 11.. Revision Date: 12/04/2015. CIGARETTE SMOKING: The facts are clear, cigarette smoking will shorten your life. Smoking can cause many illnesses along the way. As a healthcare provider, we recommend that you stop smoking. Assistance with quitting is available by contacting 7-262-JQOV-NOW. This is a free resource providing counseling, [...] Be sure to sign up for the [employer] patient portal, which gives you 09/05 access to your medical information ??? including these discharge instructions ??? using your computer, smartphone, or tablet. Just go to [employer] to get started. Questions? Call . [facility] would like to thank you for allowing us to assist you with your healthcare needs. MICHELE Skaggs JUDY D, (or service liaison representative) have received the above patient education materials/instructions and have verbalized understanding: Patient Signature _ Date/Time Patient Drilling Field Operator Signature (if needed) Date/Time Clinician/Hospital Drilling Field Operator Signature (if needed) Date/Time documented in this encounter Plan of Treatment Not on file documented as of this encounter Visit Diagnoses Not on filedocumented in this encounter Care Teams Property Underwriter Relationship Specialty Start Date End Date Jay Howell MD [address] [place] [phone] PCP - General Emergency Medicine 11/12/23 documented as of this encounter
--- OUTSIDE RECORDS SUMMARY | 2025-07-22 07:50 | XMS_ITS | Encounter Summary ---
Author Organization [employer] ([place], [place], [place], [place]) Address [address] [place] [address] Care Team Providers Care Sales Merchandise Associate Name Role Phone Jay Howell MD Primary Care Provider [phone] Encounter Details Date Type Department Care Team (Late st Contact Info) Description 09/04/2020 Transcribed Document [facility] [place] [address] [place] [address] ProviderJessie MD [address] [place] [address] Social History Tobacco Use Types Packs/Day Years Used Date Smoking Tobacco: Never Assessed Comments Unknown Sex and Gender Information Value Date Recorded Sex Assigned at Not on file Legal Sex Female 7:30 PM CDT Gender Identity Not on file Sexual Orientation Not on file documented as of this encounter Miscellaneous Notes * Cerner Conversion Note - Jessie ProviderMD - 09/04/2020 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 Needed : No Chinyere Leonard RN - [...] 04:13:26 EST) Problems(Active) Apnea, sleep (SNOMED CT :251542434 ) Name of Problem: Apnea, sleep ; Recorder: JUAN LUIS GIL RN; Confirmation: Confirmed ; Classification: Medical ; Code: [id number] ; Contributor System: zeeWAVES ; Last Updated: 11/12/2014 10:12 EST ; Life Cycle Date: 11/12/2014 ; Life Cycle Status: Active ; Vocabulary: SNOMED CT Arthritis (SNOMED CT :8219675 ) Name of Problem: Arthritis ; Recorder: KENYON CHAMBERS RN; Confirmation: Confirmed ; Classification: Medical ; Code: [id number] ; Contributor System: PowerChart ; Last Updated: 04/10/2016 8:04 EDT ; Life Cycle Date: 08/13/2013 ; Life Cycle Status: Active ; Vocabulary: SNOMED CT Atrial fibrillation with RVR (SNOMED CT :8441040375 ) Name of Problem: Atrial fibrillation with RVR ; Recorder: SANG RICO APRN; Confirmation: Confirmed ; Classification: Medical ; Code: [id number] ; Contributor System: PowerChart ; Last Updated: 04/10/2016 8:05 EDT ; Life Cycle Date: 04/10/2016 ; Life Cycle Status: Active ; Responsible Provider: SANG RICO APRN; Vocabulary: SNOMED CT Blood clot (SNOMED CT :612076397 ) Name of Problem: Blood clot ; Recorder: KENYON CHAMBERS RN; Confirmation: Confirmed ; Classification: Patient Stated ; Code: [id number] ; Contributor System: PowerChart ; Last Updated: [...] Vocabulary: Patient Care Chest pain (SNOMED CT :81477479 ) Name of Problem: Chest pain ; Recorder: SANG RICO APRN; Confirmation: Complaint of ; Classification: Medical ; Code: 08795351 ; Contributor System: PowerChart ; Last Updated: 04/10/2016 8:05 EDT ; Life Cycle Status: Active ; Responsible Provider: SANG RICO APRN; Vocabulary: SNOMED CT Chronic anticoagulation (SNOMED CT :241354229 ) Name of Problem: Chronic anticoagulation ; Recorder: SANG RICO APRN; Confirmation: Confirmed ; Classification: Medical ; Code: 684174416 ; Contributor System: PowerChart ; Last Updated: 04/10/2016 8:05 EDT ; Life Cycle Date: 04/10/2016 ; Life Cycle Status: Active ; Responsible Provider: SANG RICO APRN; Vocabulary: SNOMED CT Clotting disorder (SNOMED CT :846460084 ) Name of Problem: Clotting disorder ; Recorder: KENYON CHAMBERS RN; Confirmation: Confirmed ; Classification: Patient Stated ; Code: 022498010 ; Contributor System: PowerChart ; Last Updated: 03/28/2014 19:29 EDT ; Life Cycle Date: 08/13/2013 ; Life Cycle Status: Active ; Vocabulary: SNOMED CT COPD (SNOMED CT :32001804 ) Name of Problem: COPD ; Recorder: KENYON CHAMBERS RN; Confirmation: Confirmed ; Classification: Medical ; Code: 25966294 ; Contributor System: PowerChart ; Last Updated: 04/10/2016 8:03 EDT ; Life Cycle Date: 08/13/2013 ; Life Cycle Status: Active ; Vocabulary: SNOMED CT Coronary artery disease (SNOMED CT :9306448919 ) Name of Problem: Coronary artery disease ; Recorder: KENYON CHAMBERS RN; Confirmation: Confirmed ; Classification: Medical ; Code: [id number] ; Contributor System: PowerChart ; Last Updated: 04/10/2016 8:03 EDT ; Life Cycle Date: 08/13/2013 ; Life Cycle Status: Active ; Vocabulary: SNOMED CT Diabetes mellitus (SNOMED CT :343484950 ) Name of Problem: Diabetes mellitus ; Recorder: KENYON CHAMBERS RN; Confirmation: Confirmed ; Classification: Medical ; Code: 081513465 ; Contributor System: PowerChart ; Last Updated: 04/10/2016 8:04 EDT ; Life Cycle Date: 08/13/2013 ; Life Cycle Status: Active ; Vocabulary: SNOMED CT Emphysema (SNOMED CT :372154093 ) Name of Problem: Emphysema ; Recorder: JUAN LUIS GIL RN; Confirmation: Confirmed ; Classification: Medical ; Code: 682373492 ; Contributor System: PowerChart ; Last Updated: 11/12/2014 10:11 EST ; Life Cycle Date: 11/12/2014 ; Life Cycle Status: Active ; Vocabulary: SNOMED CT GERD - Gastro-esophageal reflux disease (SNOMED CT :4752112042 ) Name of Problem: GERD - Gastro-esophageal reflux disease ; Recorder: KENYON CHAMBERS RN; Confirmation: Confirmed ; Classification: Medical ; Code: [id number] ; Contributor System: PowerChart ; Last Updated: [...] Patient Care High blood pressure (SNOMED CT :09268645 ) Name of Problem: High blood pressure ; Recorder: KENYON CHAMBERS RN; Confirmation: Confirmed ; Classification: Medical ; Code: 00851566 ; Contributor System: PowerChart ; Last Updated: 04/10/2016 8:03 EDT ; Life Cycle Date: 08/13/2013 ; Life Cycle Status: Active ; Vocabulary: SNOMED CT History of obstructive sleep apnea (IMO :33769978 ) Name of Problem: History of obstructive sleep apnea ; Recorder: SYSTEM, SYSTEM; Confirmation: Confirmed ; Classification: Medical ; Code: 07321589 ; Last Updated: 08/25/2020 18:21 EST ; Life Cycle Date: 08/25/2020 ; Life Cycle Status: Active ; Vocabulary: IMO Hx of pulmonary embolus (SNOMED CT :981884472 ) Name of Problem: Hx of pulmonary embolus ; Recorder: SANG RICO APRN; Confirmation: Confirmed ; Classification: Medical ; Code: 475921030 ; Contributor System: PowerChart ; Last Updated: 04/10/2016 8:05 EDT ; Life Cycle Date: 04/10/2016 ; Life Cycle Status: Active ; Responsible Provider: SANG RICO APRN; Vocabulary: SNOMED CT Hyperlipidemia (SNOMED CT :54656291 ) Name of Problem: Hyperlipidemia ; Recorder: KENYON CHAMBERS RN; Confirmation: Confirmed ; Classification: Medical ; Code: 52376947 ; Contributor System: PowerChart ; Last Updated: 04/10/2016 8:03 EDT ; Life Cycle Date: 08/13/2013 ; Life Cycle Status: Active ; Vocabulary: SNOMED CT Multiple renal cysts (SNOMED CT :367731396 ) Name of Problem: Multiple renal cysts ; Recorder: KENYON CHAMBERS RN; Confirmation: Confirmed ; Classification: Medical ; Code: 463519255 ; Contributor System: zeeWAVES ; Last Updated: 04/10/2016 8:04 EDT ; Life Cycle Date: 08/13/2013 ; Life Cycle Status: Active ; Vocabulary: SNOMED CT Stented coronary artery (SNOMED CT :8485715820 ) Name of Problem: Stented coronary artery ; Recorder: KENYON CHAMBERS RN; Confirmation: Confirmed ; Classification: Medical ; Code: 6348746660 ; Contributor System: zeeWAVES ; Last Updated: 04/10/2016 8:03 EDT ; Life Cycle Date: 08/13/2013 ; Life Cycle Status: Active ; Vocabulary: SNOMED CT Diagnoses(Active) Wound drain evaluation Date: 09/04/2020 ; Diagnosis Type: Reason For Visit ; Confirmation: Complaint of ; Clinical Dx: Wound drain evaluation ; Classification: Medical ; Clinical Service: Non-Specified ; Code: PNED ; Probability: 0 ; Diagnosis Code: [id number] ED Height and Weight Height Source : Stated Height Entry Format : Towns Height, Feet : 5 ft(Converted to: 152 cm, 60 Inch) Height, Inches : 4 Inch(Converted to: 0 ft 4 Inch, 10.16 cm) Clinical Height : 162.56 cm Weight Source, ED : Critical estimated dosing weight Weight Entry Format : Towns Weight, Pounds : 152 lb Clinical Dosing Weight : 69.09 kg Body Surface Area (BSA) : 1.74 m2 Body Mass Index : 26.1 kg/m2 ([place]) [place] Body Weight (IBW) : 54.3 kg Chinyere Leonard RN - 09/04/2020 4:12 EST documented in this encounter Plan of Treatment Not on file documented as of this encounter Visit Diagnoses Not on filedocumented in this encounter Care Teams Sales Merchandise Associate Relationship Specialty Start Date End Date Jay Howell MD [address] [place] [phone] PCP - General Emergency Medicine 11/12/23 documented as of this encounter
--- OUTSIDE RECORDS SUMMARY | 2025-07-22 07:50 | XMS_ITS | Encounter Summary ---
Author Organization [employer] ([place], [place], [place], [place]) Address [address] [place] [address] Care Team Providers Care Laboratory Asst Name Role Phone Jay Howell MD Primary Care Provider [phone] Encounter Details Date Type Department Care Team (Late st Contact Info) Description 09/01/2020 Transcribed Document [facility] [place] [address] [place] [address] ProviderJessie MD [address] [place] [address] Social History Tobacco Use Types [...] Jessie Yuen MD - 09/01/2020 2:22 PM OFFLINE CUTTER [facility] [place] [id number] SKYLER MONTOYA :1940 Visit Time:08/25/2020 Your Visit [...] next 5 days. NEW RX Provided. STOP Troy 7.5/325 mg tablets --- NEW RX Provided for 5/325 mg tablets --- Take one or the other - Do not take both. Discharge Activity: Discharge Activity: No heavy lifting over 10 lbs, Avoid Strenuous Activity Until: for 1 week Follow-Up Appointments Follow Up with KAELA VERDE When 09/29/2020 12:30 PM EST Comments F/u w/ FERNIE Where: [place] [address] [place] [phone]- Business (1) Follow Up with KAELA VERDE When 09/08/2020 12:45 PM EST Comments F/u [facility] with Irina Troy PA-C Where: [facility] [address] [place] [address]- Business (1) Follow Up with TARA CHEN When 09/05/2020 12:20 PM EST Comments needs INR check///We have held your Aspirin per vascular surgeon, Dr. Verde///Appointment has been made Where: [address] [address]- Business (1) Follow Up with KAVITHA HIDALGO When 09/03/2020 02:30 PM EST Comments Appointment has been made Where: [address] [place] [address]- Business (1) Medications What How Much When Instructions Next Dose amoxicillin-clavulanate (amoxicillin-clavulanate 875 mg-125 mg oral tablet) 1 Tablet(s) Oral Every 12 hours Duration: 3 Day(s) Pickup at [facility] Tuesday09/01/2020 9:00 PM clopidogrel (Plavix 75 mg oral tablet) 1 Tablet(s) Oral Every Day Pickup at [facility] Tuesday09/02/2020 9:00 AM doxycycline (Vibramycin 100 mg oral capsule) 1 Capsule(s) Oral Two Times A Day Duration: 3 Day(s) Pickup at [facility] Tuesday09/01/2020 9:00 PM enoxaparin (Lovenox 80 mg/ 0.8 mL injectable solution) 70 Milligram(s) SubCutaneous Every 12 hours Duration: 5 Day(s) Pickup at [facility] Tuesday09/01/2020 9:00 PM lactobacillus acidophilus (lactobacillus acidophilus oral tablet) 2 Tablet(s) Oral Every Day Duration: 28 Day(s) Pickup at [facility] Tuesday09/02/2020 9:00 AM terbinafine (terbinafine 250 mg oral tablet) 1 Tablet(s) Oral Every Day Duration: 6 weeks Pickup at [facility] [place] 09/02/2020 9:00 AM ALPRAZolam (Xanax 0.5 mg oral tablet) 1 Tablet(s) Oral At Bedtime as needed for for anxiety/sleep acetaminophen-hydrocodone (Troy 5 mg-325 mg oral tablet) 1 Tablet(s) Oral Every 4 Hours as needed for for pain NEW DOSE. New RX Provided. amLODIPine (Norvasc 10 mg oral tablet) 1 Tablet(s) Oral Every Day Pickup at [facility] Tuesday09/02/2020 9:00 AM atorvastatin (atorvastatin 80 mg oral tablet) 1 Tablet(s) Oral At Bedtime Pickup at [facility] Tuesday09/01/2020 9:00 PM carvedilol (carvedilol 6.25 mg oral tablet) 1 Tablet(s) Oral Three Times A Day Tuesday09/01/2020 4:00 PM dorzolamide ophthalmic (dorzolamide 2% ophthalmic solution) 1 Drop(s) Eye Right Two Times A Day Tuesday09/01/2020 9:00 PM hydrALAZINE (hydrALAZINE 100 mg oral tablet) 1 Tablet(s) Oral Two Times A Day NEW DOSE Pickup at [facility] Tuesday09/01/2020 9:00 PM warfarin (Coumadin 3 mg oral tablet) 1 Tablet(s) Oral Every Day Duration: 5 Day(s) NEW DOSE x the next 5 days. INR will be checked in 2 days. Pickup at [facility] Tuesday09/02/2020 9:00 AM losartan (losartan 100 mg [...] A Day Tuesday09/01/2020 9:00 PM Pharmacy Information [facility]: [address] [facility] [address] [place], [place] [id number] [phone] Take your medications faithfully. Do NOT skip [...] bag. ??? Soap and water, or hand electronic news gathering camera person. ??? Wound cleanser or salt-water solution (saline). [...] and water are not available, use hand electronic news gathering camera person. 3. Set up a clean station for [...] and water are not available, use hand electronic news gathering camera person. Clean your wound ??? Wear gloves, protective [...] and water are not available, use hand electronic news gathering camera person. Apply new dressing ??? Wear gloves, protective [...] and water are not available, use hand electronic news gathering camera person. 8. Turn the pump back on. The sponge dressing should collapse. Do not change the settings on the machine without talking to a health care provider. 9. Replace the container in the pump that collects fluid if it is full. Replace the container per the planetarium sky show technician's instructions or at least once a week, [...] clamps are open. ??? Do not use gppu-try-wtvrlza medicated or antiseptic creams, sprays, liquids, or [...] 12/25/2012 Document Revised: 01/25/2020 Document Reviewed: 12/21/2019 [employer] Patient Education ?? 2020 [employer] Cellulitis, Adult Cellulitis is a skin [...] these instructions at home: Medicines ??? Take gtsk-vzv-fwbwboo and prescription medicines only as told by [...] 03/21/2009 Document Revised: 02/22/2019 Document Reviewed: 02/22/2019 [employer] Patient Education ?? 2020 [employer] What You Need to Know About [...] other medicines or supplements? Many prescription and rliz-abe-qcxgjbl medicines can interfere with warfarin. Talk with your health care provider or your pharmacist before starting or stopping any new medicines. This includes abkh-mbo-zxdfolm vitamins, dietary supplements, herbal medicines, and pain medicines. Your warfarin dosage may need to be adjusted. ??? Some common uhpd-tch-xuagpmm medicines that may increase the risk of [...] that you work with a diet and emergency management program specialist (dietitian). ??? Vitamin K decreases the [...] cooked. ??? Collards, raw or cooked. ??? Filipino chard, raw or cooked. ??? Mustard greens, raw or cooked. ??? Turnip greens, raw or cooked. ??? Parsley, raw. ??? Broccoli, cooked. ??? Noodles, eggs, and spinach, enriched. ??? Hamburg sprouts, raw or cooked. ??? Beet greens, [...] diet. ??? You start or stop any ojfk-wbd-ussndfv medicine, prescription medicine, or dietary supplement. ??? [...] 10/03/2006 Document Revised: 05/16/2018 Document Reviewed: 12/29/2016 [employer] Patient Education ?? 2020 [employer]. Hematoma A hematoma is a collection of [...] health care provider. General instructions ??? Take ojub-zer-juzzleq and prescription medicines only as told by [...] Assistance with quitting is available by contacting 0-359-MVHF-NOW. This is a free resource providing counseling, support, and referral. Or you may contact your personal physician. [place] Suicide Prevention Lifeline: The National Suicide Prevention [...] range between ( 0.0 and 7.0 ) Eagle #: 0.64 K/uL -- Normal range between ( 0.16 and 1.00 ) Eos #: 0.11 x10(3)/uL -- Normal range between ( 0.00 and 0.80 ) Eagle %: 10.7 % -- Normal range between [...] was given the opportunity to ask questions. Patient/Geothermal Heat Pump Machinist Name: Patient/Geothermal Heat Pump Machinist Signature: Relationship to Patient: Clinician/Hospital Geothermal Heat Pump Machinist Signature: Date: Electronically signed by Sivan, [facility] Conversion Social Work Lecturer Cerner at 02/04/2023 2:00 PM CDT documented in this encounter Plan of Treatment Not on file documented as of this encounter Visit Diagnoses Not on filedocumented in this encounter Care Teams Laboratory Asst Relationship Specialty Start Date End Date Jay Howell MD [address] [place] [phone] PCP - General Emergency Medicine 11/12/23 documented as of this encounter
--- OUTSIDE RECORDS SUMMARY | 2025-07-22 07:50 | XMS_ITS | Encounter Summary ---
Author Organization [employer] ([place], [place], [place], [place]) Address [address] [place] [address] Care Team Providers Care Equipment Operator Wage Hand Name Role Phone Jay Howell MD Primary Care Provider [phone] Encounter Details Date Type Department Care Team (Late st Contact Info) Description 09/08/2020 Transcribed Document [facility] [place] [place] [facility] [place] [address] ProviderJessie MD [address] [place] [address] Social History Tobacco Use Types Packs/Day Years Used Date Smoking Tobacco: Never Assessed Comments Unknown Sex and Gender Information Value Date Recorded Sex Assigned at Not on file Legal Sex Female 7:30 PM CDT Gender Identity Not on file Sexual Orientation Not on file documented as of this encounter Miscellaneous Notes * Cerner Conversion Note - Jessie Yuen MD - 09/08/2020 5:27 PM STEEL DIVISION SUPERVISOR Patient: SKYLER MONTOYA Age: 79 Years Sex: Female : 1940 Wound Location: LEFT pretib Type of debridement: nonexcisional Indications: Non-viable tissue in the base of the wound Pre-debridement wound dimensions: 2.8x2x0.3cm Post-debridement wound dimensions: same Surgeon: Irina rToy PA-C Anesthesia: Lidocaine 5% gel Blood Loss: minimal Procedure Description: The area was cleaned with sterile saline solution. 25 lidocaine gel was applied to the wound for several minutes. Utilizing a #4 curette all of the necrotic material/slough was debrided down to healthy granulation tissue. The deepest layer of debridement was subcutaneous tissue. Hemostasis was achieved with manual compression. New dressing was applied. documented in this encounter Plan of Treatment Not on file documented as of this encounter Visit Diagnoses Not on filedocumented in this encounter Care Teams Equipment Operator Wage Hand Relationship Specialty Start Date End Date Jay Howell MD [address] [place] [phone] PCP - General Emergency Medicine 11/12/23 documented as of this encounter
--- OUTSIDE RECORDS SUMMARY | 2025-07-22 07:50 | XMS_ITS | Encounter Summary ---
Author Organization [employer] ([place], [place], [place], [place]) Address [address] [place] [address] Care Team Providers Care Patcher Name Role Phone Jay Howell MD Primary Care Provider [phone] Encounter Details Date Type Department Care Team (Late st Contact Info) Description 08/30/2020 Transcribed Document [facility] [place] [address] [place] [address] ProviderJessie MD [address] [place] [address] Social History Tobacco Use Types Packs/Day Years Used Date Smoking Tobacco: Never Assessed Comments Unknown Sex and Gender Information Value Date Recorded Sex Assigned at Not on file Legal Sex Female 7:30 PM CDT Gender Identity Not on file Sexual Orientation Not on file documented as of this encounter Miscellaneous Notes * Cerner Conversion Note - Jessie Yuen MD - 08/30/2020 9:36 AM JALOUSIE INSTALLER Patient: SKYLER MONTOYA Age: 79 years [...] for this consult, Miladys Lopez, KellD PGY-1 Hydro Plant Operator Pager #: [phone] Extension #: [phone] Electronically signed by [facility], [facility] Conversion Dish Washer Cerner at 02/04/2023 2:03 PM CDT documented in this encounter Plan of Treatment Not on file documented as of this encounter Visit Diagnoses Not on filedocumented in this encounter Care Teams Patcher Relationship Specialty Start Date End Date Jay Howell MD [address] [place] [phone] PCP - General Emergency Medicine 11/12/23 documented as of this encounter
--- OUTSIDE RECORDS SUMMARY | 2025-07-22 07:50 | XMS_ITS | Encounter Summary ---
Author Organization [employer] ([place], [place], [place], [place]) Address [address] [place] [address] Care Team Providers Care Embossing Tool Setter Name Role Phone Jay Howell MD Primary Care Provider [phone] Encounter Details Date Type Department Care Team (Late st Contact Info) Description 12/21/2018 Transcribed Document [facility] [place] [address] [place] [address] ProviderJessie MD [address] [place] [address] Social History Tobacco Use Types Packs/Day Years Used Date Smoking Tobacco: Never Assessed Comments Unknown Sex and Gender Information Value Date Recorded Sex Assigned at Not on file Legal Sex Female 7:30 PM CDT Gender Identity Not on file Sexual Orientation Not on file documented as of this encounter Miscellaneous Notes * Cerner Conversion Note - Jessie Yuen MD - 12/21/2018 10:31 AM METAPHYSICIAN Discharge Instructions Entered On: 12/21/2018 10:31 EST [...] now and restart on 12-24-18 AUSTEN WEAVER, [facility] - 12/21/2018 10:33 EST Electronically signed by [facility], [facility] Conversion Fruit Harvest Worker Cerner at 02/04/2023 1:57 PM CDT documented in this encounter Plan of Treatment Not on file documented as of this encounter Visit Diagnoses Not on filedocumented in this encounter Care Teams Embossing Tool Setter Relationship Specialty Start Date End Date Jay Howell MD [address] [place] [phone] PCP - General Emergency Medicine 11/12/23 documented as of this encounter
--- OUTSIDE RECORDS SUMMARY | 2025-07-22 07:50 | XMS_ITS | Encounter Summary ---
Author Organization [employer] ([place], [place], [place], [place]) Address [address] [place] [address] Care Team Providers Care Quality Control Associate Name Role Phone Jay Howell MD Primary Care Provider [phone] Encounter Details Date Type Department Care Team (Late st Contact Info) Description 09/15/2020 Transcribed Document [facility] [place] Medicine [address] [place] [address] ProviderJessie MD [address] [place] [address] Social History Tobacco Use Types Packs/Day Years Used Date Smoking Tobacco: Never Assessed Comments Unknown Sex and Gender Information Value Date Recorded Sex Assigned at Not on file Legal Sex Female 7:30 PM CDT Gender Identity Not on file Sexual Orientation Not on file documented as of this encounter Miscellaneous Notes * Cerner Conversion Note - Jessie Yuen MD - 09/15/2020 4:06 PM BLOW MOLD MACHINE OPERATOR Patient: SKYLER MONTOYA Age: 79 Years [...] present starting at the level of the BAIT TIER. Non significant, non-flow restricting plaque noted at common femoral artery. 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 There is a significant (50-75%) stenosis of the distal BAIT TIER. Non significant, non-flow restricting plaque noted at DPA. BAIT TIER & DPA non compressible for FERNIE. TBI: Non compressible. LEFT: Abnormal arterial runoff disease present starting at the level of the BAIT TIER. Non significant, non-flow restricting plaque noted at common femoral artery. There is a severe (>75%) stenosis of the distal BAIT TIER. BAIT TIER & DPA non compressible for FERNIE. TBI: Non compressible. Electronically signed by Sivan [facility] Conversion Golf Ball Winder Cerner at 02/04/2023 2:21 PM CDT documented in this encounter Plan of Treatment Not on file documented as of this encounter Visit Diagnoses Not on filedocumented in this encounter Care Teams Quality Control Associate Relationship Specialty Start Date End Date Jay Howell MD [address] [place] [phone] PCP - General Emergency Medicine 11/12/23 documented as of this encounter
--- OUTSIDE RECORDS SUMMARY | 2025-07-22 07:50 | XMS_ITS | Encounter Summary ---
Author Organization [employer] ([place], [place], [place], [place]) Address [address] [place] [address] Care Team Providers Care Clam Sorter Name Role Phone Jay Howell MD Primary Care Provider [phone] Encounter Details Date Type Department Care Team (Late st Contact Info) Description 12/21/2018 Transcribed Document [facility] [place] [address] [place] [address] ProviderJessie MD [address] [place] [address] Social History Tobacco Use Types Packs/Day Years Used Date Smoking Tobacco: Never Assessed Comments Unknown Sex and Gender Information Value Date Recorded Sex Assigned at Not on file Legal Sex Female 7:30 PM CDT Gender Identity Not on file Sexual Orientation Not on file documented as of this encounter Miscellaneous Notes * Cerner Conversion Note - Historical ProviderMD - 12/21/2018 9:20 AM ENVIRONMENTAL SERVICES MANAGER Spiritual Care Short Form Entered On: 12/21/2018 22:31 EST Performed On: 12/21/2018 9:20 EST by JAZZ PINA Chaplain-Non Cert General Information, Spiritual Care Spiritual Care Referred by : Slubber Frame Changer initiated Reason for Visit : Initial Ministry Provided to : Patient Intervention/Comment/Summary Points : Visited conducted by Spiritual Information Broker shilo Velasquez Moravian Preference : Jainism JAZZ PINA Chaplain-Magalis Del Castillo - 12/21/2018 22:31 EST documented in this encounter Plan of Treatment Not on file documented as of this encounter Visit Diagnoses Not on filedocumented in this encounter Care Teams Clam Sorter Relationship Specialty Start Date End Date Jay Howell MD [address] [place] [phone] PCP - General Emergency Medicine 11/12/23 documented as of this encounter
--- OUTSIDE RECORDS SUMMARY | 2025-07-22 07:50 | XMS_ITS | Encounter Summary ---
Author Organization [employer] ([place], [place], [place], [place]) Address [address] [place] [address] Care Team Providers Care Spindle Maker Name Role Phone Jay Howell MD Primary Care Provider [phone] Encounter Details Date Type Department Care Team (Late st Contact Info) Description 08/30/2020 Transcribed Document [facility] [place] Family Medicine [address] [place] [address] ProviderJessie MD [address] [place] [address] Social History Tobacco Use Types Packs/Day Years Used Date Smoking Tobacco: Never Assessed Comments Unknown Sex and Gender Information Value Date Recorded Sex Assigned at Not on file Legal Sex Female 7:30 PM CDT Gender Identity Not on file Sexual Orientation Not on file documented as of this encounter Miscellaneous Notes * Cerner Conversion Note - Jessie Yuen MD - 08/30/2020 8:14 AM JOB SUPERINTENDENT Patient: SKYLER MONTOYA Age: 79 years Sex: [...] mg, 6 mL, 112 mL/Hr, IV Piggyback, [id number] 0.5 mg-2.5 mg/3 mL inhalation solution: [...] Tab, Oral, Daily, 30 Tab, 0 Refill(s) [facility] 7.5 mg-325 mg oral tablet: 1 Tab, [...] mL 300 mg 6 mL, IV Piggyback, [id number] dorzolamide 2% ophth soln 10 mL 1 [...] Confirmed Coronary artery disease / SNOMED CT 2203591422 / Confirmed Stented coronary artery / SNOMED CT 3005170872 / Confirmed High blood pressure / SNOMED CT 98779397 / Confirmed Hyperlipidemia / SNOMED CT 21777399 / Confirmed COPD / SNOMED CT 47599195 / Confirmed GERD - Gastro-esophageal reflux disease / SNOMED CT 9103824936 / Confirmed Multiple renal cysts / SNOMED 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 Vered, ok to use heparin gtt. there is [...] days based on INR Electronically signed by [facility], [facility] Conversion Section Leader And Machine Setter Cerner at 02/04/2023 2:10 PM CDT documented in this encounter Plan of Treatment Not on file documented as of this encounter Visit Diagnoses Not on filedocumented in this encounter Care Teams Spindle Maker Relationship Specialty Start Date End Date Jay Howell MD [address] [place] [phone] PCP - General Emergency Medicine 11/12/23 documented as of this encounter
--- OUTSIDE RECORDS SUMMARY | 2025-07-22 07:50 | XMS_ITS | Encounter Summary ---
Author Organization [employer] ([place], [place], [place], [place]) Address [address] [place] [address] Care Team Providers Care Care Management Specialist Name Role Phone Jay Howell MD Primary Care Provider [phone] Encounter Details Date Type Department Care Team (Late st Contact Info) Description 08/29/2020 Transcribed Document [facility] Family Medicine [address] [place] [address] ProviderJessie MD [address] [place] [address] Social History Tobacco Use Types Packs/Day Years Used Date Smoking Tobacco: Never Assessed Comments Unknown Sex and Gender Information Value Date Recorded Sex Assigned at Not on file Legal Sex Female 7:30 PM CDT Gender Identity Not on file Sexual Orientation Not on file documented as of this encounter Miscellaneous Notes * Cerner Conversion Note - Historical ProviderMD - 08/29/2020 1:02 PM DIGESTION OPERATOR Patient: SKYLER MONTOYA Age: 79 years [...] level of muscle per surgery *Operation RIGHT SALON STYLIST access - ultrasound guided Aortogram with LEFT lower extremity run-off LEFT PT angioplasty (2.5-5m630ew Nanocross) LEFT peroneal angioplasty (2.5-0w150xp Nanocross) RIGHT SALON STYLIST closure (Angioseal) LEFT leg debridement 08/29/20 doing [...] Level 0.70 mg/dL 08/29/2020 02:04 Bun/Creatinine 22.9 MT 08/29/2020 02:04 eGFR >60 mL/min/1.73m2 08/29/2020 02:04 eGFR NonAfrican >60 mL/min/1.73m2 08/29/2020 02:04 Bun/Creatinine 22.9 MT 08/29/2020 07:33 Sodium Level 138 mmol/L 08/29/2020 02:04 Potassium Level 3.3 mmol/L LOW 08/29/2020 02:04 Chloride Level 108 mmol/L 08/29/2020 02:04 Carbon Dioxide Level 23 mmol/L 08/29/2020 02:04 Anion Gap 10 08/29/2020 02:04 Blood Urea Nitrogen 16 mg/dL 08/29/2020 02:04 Glucose Level 108 mg/dL MT 08/29/2020 02:04 Calcium Level 9.1 mg/dL 08/29/2020 02:04 MICRO: ACC: [id number] ORDER: Culture Wound and Stain DATE: 08/26/2020 15:23 SOURCE: Surgical Swab SITE: Leg Lower L Reports Final 08/29/2020 08:29 No growth Pre 08/27/2020 07:14 No growth GS 08/26/2020 18:13 Few White Blood Cells No organisms seen. == ACC: [id number] ORDER: Culture Wound and Stain DATE: 08/25/2020 05:00 SOURCE: Wound SITE: Leg Lower L Reports Final 08/28/2020 08:57 No growth Pre 08/26/2020 06:23 No growth GS 08/25/2020 07:26 No organisms seen. Few White Blood Cells Rare epithelial cells == ACC: [id number] ORDER: Culture AFB and Stain DATE: 08/26/2020 13:56 SOURCE: Surgical Swab SITE: Leg Lower L Reports AFS 08/27/2020 13:07 No Acid Fast Bacilli seen == ACC: [id number] ORDER: Culture Anaerobic DATE: 08/26/2020 13:56 SOURCE: Surgical Swab SITE: Leg Lower L Reports Pre 08/28/2020 07:01 No Anaerobic growth Pre 08/27/2020 07:47 Culture in progress == ACC: [id number] ORDER: Culture Fungus DATE: 08/26/2020 13:56 SOURCE: Surgical Swab SITE: Leg Lower L Reports SINDI 08/26/2020 16:09 No Fungal elements seen == ACC: [id number] ORDER: Culture Blood DATE: 08/25/2020 05:01 SOURCE: Blood SITE: Reports Pre 08/29/2020 06:01 No growth at 4 days. Pre 08/28/2020 06:01 No growth at 3 days. Pre 08/27/2020 06:01 No growth at 2 days. Pre 08/26/2020 06:01 No growth at 1 day. Pre 08/25/2020 23:02 Culture less than 24 Hrs old == ACC: [id number] ORDER: Culture Blood DATE: 08/25/2020 05:01 SOURCE: Blood SITE: Reports Pre 08/29/2020 06:02 No growth at 4 days. Pre 08/28/2020 06:01 No growth at 3 days. Pre 08/27/2020 06:01 No growth at 2 days. Pre 08/26/2020 06:01 No growth at 1 day. Pre 08/25/2020 23:02 Culture less than 24 Hrs old == Radiology Results (Last 48 hours) [id number] -- 08/25/2020 05:53 CT Abdomen WO W [...] closely after discharge Electronically signed by Sivan, [facility] Conversion Health Services Coordinator Cerner at 02/04/2023 1:55 PM CDT documented in this encounter Plan of Treatment Not on file documented as of this encounter Visit Diagnoses Not on filedocumented in this encounter Care Teams Care Management Specialist Relationship Specialty Start Date End Date Jay Howell MD [address] [place] [phone] PCP - General Emergency Medicine 11/12/23 documented as of this encounter
--- OUTSIDE RECORDS SUMMARY | 2025-07-22 07:50 | XMS_ITS | Encounter Summary ---
Author Organization [employer] ([place], [place], [place], [place]) Address [address] [place] [address] Care Team Providers Care Grain Elevator Clerk Name Role Phone Jay Howell MD Primary Care Provider [phone] Encounter Details Date Type Department Care Team (Late st Contact Info) Description 09/08/2020 Transcribed Document [facility] Family Medicine [address] [place] [address] ProviderJessie MD [address] [place] [address] Social History Tobacco Use Types Packs/Day Years Used Date Smoking Tobacco: Never Assessed Comments Unknown Sex and Gender Information Value Date Recorded Sex Assigned at Not on file Legal Sex Female 7:30 PM CDT Gender Identity Not on file Sexual Orientation Not on file documented as of this encounter Miscellaneous Notes * Cerner Conversion Note - Jessie Yuen MD - 09/08/2020 5:17 PM PUBLIC AFFAIRS OFFICER Patient: KSYLER MONTOYA Age: 79 Years Sex: Female : 1940 Reason for Consultation LEFT LE wound History of Present Illness Ms. Montoya is an 79 year-old female who [facility] [place] for f/u after recent hospitalization. She has [...] lower extremity run-off - LEFT PT angioplasty (2.5-5k770dj Nanocross) - LEFT peroneal angioplasty (2.5-8c108ox Nanocross) - LEFT leg debridement Other: - [...] No labs to review Electronically signed by [facility], [facility] Conversion Travel Consultant Cerner at 02/04/2023 1:55 PM CDT documented in this encounter Plan of Treatment Not on file documented as of this encounter Visit Diagnoses Not on filedocumented in this encounter Care Teams Grain Elevator Clerk Relationship Specialty Start Date End Date Jay Howell MD [address] [place] [phone] PCP - General Emergency Medicine 11/12/23 documented as of this encounter
--- OUTSIDE RECORDS SUMMARY | 2025-07-22 07:50 | XMS_ITS | Encounter Summary ---
Author Organization [employer] ([place], [place], [place], [place]) Address [address] [place] [address] Care Team Providers Care Mixing And Molding Machine Operator Name Role Phone Jay Howell MD Primary Care Provider [phone] Encounter Details Date Type Department Care Team (Late st Contact Info) Description 08/29/2020 Transcribed Document [facility] [place] [address] [place] [address] ProviderJessie MD [address] [place], [place] [id number] Social History Tobacco Use Types Packs/Day Years Used Date Smoking Tobacco: Never Assessed Comments Unknown Sex and Gender Information Value Date Recorded Sex Assigned at Not on file Legal Sex Female 7:30 PM CDT Gender Identity Not on file Sexual Orientation Not on file documented as of this encounter Miscellaneous Notes * Cerner Conversion Note - Historical ProviderMD - 08/29/2020 12:42 PM LICENSED SURVEYOR Patient: SKYLER MONTOYA Age: 79 Years Sex: [...] 08/29/2020 01:38 EST Electronically signed by Sivan [facility] Conversion Employment Director Cerner at 02/04/2023 2:06 PM CDT documented in this encounter Plan of Treatment Not on file documented as of this encounter Visit Diagnoses Not on filedocumented in this encounter Care Teams Mixing And Molding Machine Operator Relationship Specialty Start Date End Date Jay Howell MD [address] [place] [phone] PCP - General Emergency Medicine 11/12/23 documented as of this encounter
--- OUTSIDE RECORDS SUMMARY | 2025-07-22 07:50 | XMS_ITS | Encounter Summary ---
Author Organization [employer] ([place], [place], [place], [place]) Address [address] [place] [address] Care Team Providers Care Visual Education Teacher Name Role Phone Jay Howell MD Primary Care Provider [phone] Encounter Details Date Type Department Care Team (Late st Contact Info) Description 12/21/2018 Transcribed Document [facility] Family Medicine [facility] [place] [address] ProviderJessie MD [address] [place] [phone] Social History Tobacco Use Types Packs/Day Years Used Date Smoking Tobacco: Never Assessed Comments Unknown Sex and Gender Information Value Date Recorded Sex Assigned at Not on file Legal Sex Female 7:30 PM CDT Gender Identity Not on file Sexual Orientation Not on file documented as of this encounter Miscellaneous Notes * Cerner Conversion Note - Jessie Yuen MD - 12/21/2018 11:50 AM JOCKEY ROOM CUSTODIAN [address] , [place], [place] [id number] Patient Copy Patient Information: Name: SKYLER MONTOYA Current Date: 12/21/2018 11:50:40 : 1940 Patient [address]: [address] [place] [phone] Patient Attending Physician: FREDY YAÑEZ MD-CAR Primary Care Provider: TARA CHEN (REF), -MED Primary Care Provider Discharge Diagnosis: CAD (coronary artery disease); DM (diabetes mellitus); Exertional angina; HLD (hyperlipidemia); HTN (hypertension); Hx of CABG; DANTE (obstructive sleep apnea); Paroxysmal A-fib Weight on Admission: 158 lb, 0 oz Comment: Follow-up Instructions: With: Address: When: [facility] [address], [place] [address] Business (1) In 1 month 01/21/2019 With: Address: When: [facility] [address], [address] [place], [place] [id number] Business (1) Within 2 to 5 weeks [...] What foods can I eat? GrainsBreads, including Lithuanian, white, jie, wheat, raisin, rye, oatmeal, and Djiboutian. Tortillas that are neither fried nor made with lard or trans fat. Low-fat rolls, including hotdog and hamburger buns and Anguillan muffins. Biscuits. Muffins. Waffles. Pancakes. Light popcorn. Whole-grain cereals. Flatbread. [place]mont toast. Pretzels. Breadsticks. Rusks. Low-fat snacks. Low-fat [...] cottage cheese. Whole-milk cheeses, including blue (fredo), [place] Armand, Brie, Nate, Mozambican, Havarti, Citizen Of [place], cheddar, Camembert, and [place]. Whole or 2% milk that is liquid, [...] that has suet, meat fat, or shortening. Laurier butter, hydrogenated oils, palm oil, coconut oil, [...] can cause a heart attack (myocardial infarction, NE). CAD is a leading cause of for [...] 12/25/2012 Document Revised: 03/10/2017 Document Reviewed: 02/04/2015 CliniCast Interactive Patient Education ? 2017 [employer] Inc. Groin Site Care Refer to this [...] Document Reviewed: 11/05/2011 ExitCare? Patient Information ?2013 Vanu Coverage. Angiogram An angiogram, also called angiography, is [...] including vitamins, herbs, eye drops, creams, and vuts-gzq-gxejsbi medicines. ??? Any problems you or family [...] 03/06/2014 Elsevier Interactive Patient Education ? 2017 [employer] Inc. Medication Leaflets: valsartan (elin LILY foster) [...] valsartan; ?? if you are on a lhs-swrn-aour; ?? if you are dehydrated; or ?? [...] may report side effects to FDA at 5-394-THG-6216. What other drugs will affect valsartan? Tell [...] may interact with valsartan, including prescription and dwpk-gwr-kqlruam medicines, vitamins, and herbal products. Not all [...] to ensure that the information provided by [employer] ('Multum') is accurate, up-to-date, and complete, but no guarantee is made to that effect. Drug information contained herein may be time sensitive. 2 Minutesum information has been compiled for use by healthcare practitioners and consumers in the [place] and therefore 2 Minutes[employer] does not warrant that uses outside of the [place] are appropriate, unless specifically indicated otherwise. [email or web address]'s drug information does not endorse drugs, diagnose patients or recommend therapy. [email or web address]'s drug information is an informational resource designed [...] effective or appropriate for any given patient. [facility] does not assume any responsibility for any aspect of healthcare administered with the aid of information [facility] provides. The information contained herein is not intended to cover all possible uses, directions, precautions, warnings, drug interactions, allergic reactions, or adverse effects. If you have questions about the drugs you are taking, check with your doctor, nurse or pharmacist. Copyright 0272-6301 [facility]. Version: 16.05. Revision Date: 09/08/2016. hydralazine (bob [...] may report side effects to FDA at 6-752-VYV-2627. What other drugs will affect hydralazine? Tell your doctor about all your current medicines and any you start or stop using, especially: ? diazoxide (an injectable blood pressure medication); or ?? an MAO inhibitor--isocarboxazid, linezolid, methylene blue injection, phenelzine, rasagiline, selegiline, tranylcypromine, and others. This list is not complete. Other drugs may interact with hydralazine, including prescription and itfc-kms-idhzfzo medicines, vitamins, and herbal products. Not all [...] to ensure that the information provided by [employer] ('Multum') is accurate, up-to-date, and complete, but no guarantee is made to that effect. Drug information contained herein may be time sensitive. [email or web address] information has been compiled for use by healthcare practitioners and consumers in the [place] and therefore [email or web address] does not warrant that uses outside of the [place] are appropriate, unless specifically indicated otherwise. [email or web address]'s drug information does not endorse drugs, diagnose patients or recommend therapy. [employer] drug information is an informational resource designed [...] effective or appropriate for any given patient. [email or web address] does not assume any responsibility for any aspect of healthcare administered with the aid of information [email or web address] provides. The information contained herein is not intended to cover all possible uses, directions, precautions, warnings, drug interactions, allergic reactions, or adverse effects. If you have questions about the drugs you are taking, check with your doctor, nurse or pharmacist. Copyright 1857-5923 [employer] Version: 5.01. Revision Date: 10/26/2017. amlodipine (am [...] may report side effects to FDA at 7-946-YQY-2079. What other drugs will affect amlodipine? Tell your doctor about all your current medicines and any you start or stop using, especially: ? nitroglycerin; ?? simvastatin (Zocor, Simcor, Vytorin); or ?? any other heart or blood pressure medications. This list is not complete. Other drugs may interact with amlodipine, including prescription and uxby-wrg-hxhxbva medicines, vitamins, and herbal products. Not all [...] to ensure that the information provided by [employer] ('Multum') is accurate, up-to-date, and complete, but no guarantee is made to that effect. Drug information contained herein may be time sensitive. [email or web address] information has been compiled for use by healthcare practitioners and consumers in the [place] and therefore [email or web address] does not warrant that uses outside of the [place] are appropriate, unless specifically indicated otherwise. Field Agents drug information does not endorse drugs, diagnose patients or recommend therapy. Field Agents drug information is an informational resource designed [...] effective or appropriate for any given patient. [email or web address] does not assume any responsibility for any aspect of healthcare administered with the aid of information [email or web address] provides. The information contained herein is not intended to cover all possible uses, directions, precautions, warnings, drug interactions, allergic reactions, or adverse effects. If you have questions about the drugs you are taking, check with your doctor, nurse or pharmacist. Copyright 6602-6336 [employer]. Version: 14.. Revision Date: 01/24/2017. clopidogrel (kloe [...] may report side effects to FDA at 0-020-NRC-2749. What other drugs will affect clopidogrel? Certain other medicines may increase your risk of bleeding, including aspirin. Avoid taking aspirin unless your doctor tells you to. Tell your doctor about all your other medicines, especially: ? any other medicines to treat or prevent blood clots; ?? a stomach acid nurse's aides teacher such as omeprazole, Nexium, or Prilosec; ?? an antidepressant; ?? an opioid medication; ?? a blood thinner--warfarin, Coumadin, Jantoven; or ?? NSAIDs (nonsteroidal anti-inflammatory drugs)--ibuprofen (Advil, Motrin), naproxen (Aleve), celecoxib, diclofenac, indomethacin, meloxicam, and others. This list is not complete. Other drugs may affect clopidogrel, including prescription and epqx-ohg-kgsnyat medicines, vitamins, and herbal products. Not all [...] to ensure that the information provided by [employer] ('Multum') is accurate, up-to-date, and complete, but no guarantee is made to that effect. Drug information contained herein may be time sensitive. lovemeshare.me information has been compiled for use by healthcare practitioners and consumers in the [place] and therefore lovemeshare.me does not warrant that uses outside of the [place] are appropriate, unless specifically indicated otherwise. lovemeshare.me's drug information does not endorse drugs, diagnose patients or recommend therapy. Field Agents drug information is an informational resource designed [...] effective or appropriate for any given patient. lovemeshare.me does not assume any responsibility for any aspect of healthcare administered with the aid of information [email or web address] provides. The information contained herein is not intended to cover all possible uses, directions, precautions, warnings, drug interactions, allergic reactions, or adverse effects. If you have questions about the drugs you are taking, check with your doctor, nurse or pharmacist. Copyright 8568-5776 [employer] Version: 15.01. Revision Date: 08/07/2018. ranolazine (ra [...] following drugs: ? clarithromycin; ?? nefazodone; ?? Mancos's wort; ?? antifungal medicine--itraconazole, ketoconazole; ?? HIV [...] may report side effects to FDA at 4-873-VOK-5789. What other drugs will affect ranolazine? Many [...] interact with ranolazine. This includes prescription and hhfs-ohg-ogfrbzd medicines, vitamins, and herbal products. Give a [...] to ensure that the information provided by [employer] ('Multum') is accurate, up-to-date, and complete, but no guarantee is made to that effect. Drug information contained herein may be time sensitive. lovemeshare.me information has been compiled for use by healthcare practitioners and consumers in the [place] and therefore lovemeshare.me does not warrant that uses outside of the [place] are appropriate, unless specifically indicated otherwise. lovemeshare.me's drug information does not endorse drugs, diagnose patients or recommend therapy. Field Agents drug information is an informational resource designed [...] effective or appropriate for any given patient. lovemeshare.me does not assume any responsibility for any aspect of healthcare administered with the aid of information [email or web address] provides. The information contained herein is not intended to cover all possible uses, directions, precautions, warnings, drug interactions, allergic reactions, or adverse effects. If you have questions about the drugs you are taking, check with your doctor, nurse or pharmacist. Copyright 0578-1938 [employer]. Version: 11.. Revision Date: 12/04/2015. CIGARETTE SMOKING: The facts are clear, cigarette smoking will shorten your life. Smoking can cause many illnesses along the way. As a healthcare provider, we recommend that you stop smoking. Assistance with quitting is available by contacting 0-182-EJRU-NOW. This is a free resource providing counseling, [...] Be sure to sign up for the [facility] patient portal, which gives you 09/05 access to your medical information ??? including these discharge instructions ??? using your computer, smartphone, or tablet. Just go to [employer] to get started. Questions? Call . [facility] would like to thank you for allowing us to assist you with your healthcare needs. MICHELE Skaggs JUDY D, (or statement services representative) have received the above patient education materials/instructions and have verbalized understanding: Patient Signature _ Date/Time Patient Glassware Finisher Signature (if needed) Date/Time Clinician/Hospital Glassware Finisher Signature (if needed) Date/Time Electronically signed by [facility], [facility] Conversion Sap Sd Analyst Cerner at 02/04/2023 1:57 PM CDT documented in this encounter Plan of Treatment Not on file documented as of this encounter Visit Diagnoses Not on filedocumented in this encounter Care Teams Visual Education Teacher Relationship Specialty Start Date End Date Jay Howell MD [address] [place] [phone] PCP - General Emergency Medicine 11/12/23 documented as of this encounter
--- OUTSIDE RECORDS SUMMARY | 2025-07-22 07:51 | XMS_ITS | Encounter Summary ---
Author Organization [employer] ([place], [place], [place], [place]) Address [address] [place] [address] Care Team Providers Care Cork Cutter Name Role Phone Jay Howell MD Primary Care Provider [phone] Encounter Details Date Type Department Care Team (Late st Contact Info) Description 03/19/2021 Transcribed Document [facility] [place] [facility] [place] [address] ProviderJessie MD [address] [place] [phone] Social History Tobacco Use Types Packs/Day Years [...] on filedocumented in this encounter Care Teams Cork Cutter Relationship Specialty Start Date End Date Jay Howell MD [address] [place] [phone] PCP - General Emergency Medicine 11/12/23 documented as of this encounter
--- OUTSIDE RECORDS SUMMARY | 2025-07-22 07:51 | XMS_ITS | Encounter Summary ---
Author Organization [employer] ([place], [place], [place], [place]) Address [address] [place] [address] Care Team Providers Care Wind Turbine Performance Engineer Name Role Phone Jay Howell MD Primary Care Provider [phone] Encounter Details Date Type Department Care Team (Late st Contact Info) Description 03/19/2021 Transcribed Document [facility] [place] [facility] [place] [address] ProviderJessie MD [address] [place], [place] [phone] Social History Tobacco Use Types Packs/Day Years [...] of the form. Electronically signed by Sivan, [facility] Conversion Reporting Process Consultant Cerner at 02/04/2023 2:13 PM CDT documented in this encounter Plan of Treatment Not on file documented as of this encounter Visit Diagnoses Not on filedocumented in this encounter Care Teams Wind Turbine Performance Engineer Relationship Specialty Start Date End Date Jay Howell MD [address] [place] [phone] PCP - General Emergency Medicine 11/12/23 documented as of this encounter
--- OUTSIDE RECORDS SUMMARY | 2025-07-22 07:51 | XMS_ITS | Encounter Summary ---
Author Organization [facility] Address [address] [place] [id number] Care Team Providers Care Train Planner Name Role Phone Jay Howell MD Primary Care Provider Encounter Details Date Type Department Care Team (Late st Contact Info) Description 07/16/2025 Telephone [facility] [address] [place] [phone] [place] [address] Social History Tobacco Use Types Packs/Day Years [...] place to sleep or slept in a longterm (including now)? No 08/06/2024 CAGE ASSESSMENT Answer [...] drink first t kathleen in the morning (EYE-HEALTHCARE INTERPRETER) to steady your nerves or to get [...] * Telephone Encounter - Kimmie Cabrera - 07/16/2025 10:06 AM EDT Patient is on urology referral [...] documented as of this encounter Care Teams Train Planner Relationship Specialty Start Date End Date Jay Howell MD [address] [place], [place] [address] PCP - General 03/08/21 documented as of this encounter
--- OUTSIDE RECORDS SUMMARY | 2025-07-22 07:51 | XMS_ITS | Encounter Summary ---
Author Organization [employer] ([place], [place], [place], [place]) Address [address] [place] [address] Care Team Providers Care Oil Pumper Name Role Phone Jay Howell MD Primary Care Provider [phone] Encounter Details Date Type Department Care Team (Late st Contact Info) Description 12/12/[address] [facility] [place] Family Medicine [address] [place] [address] ProviderJessie MD [address] [place] [address] Social History Tobacco Use Types Packs/Day Years Used Date Smoking Tobacco: Never Assessed Comments Unknown Sex and Gender Information Value Date Recorded Sex Assigned at Not on file Legal Sex Female 7:30 PM CDT Gender Identity Not on file Sexual Orientation Not on file documented as of this encounter Miscellaneous Notes * Cerner Conversion Note - Historical ProviderMD - 12/12/2018 8:58 PM BI SOLUTIONS ARCHITECT ED Triage Entered On: 12/12/2018 21:20 EST Performed On: 12/12/2018 21:18 EST by LUCINDA FOFANA RN ED Triage Across the Room Triage Date/Time : 12/12/2018 21:18 EST Chief Complaint : pt c/o mscp x 2 hours rad to neck & L arm. reports seen bt card in [place] for same earlier this week, reports she needs a cath LUCINDA FOFANA RN - 12/12/2018 21:18 EST DCP GENERIC CODE Tracking Acuity : 2 - Emergent Tracking Group : [facility] ED LUCINDA FOFANA RN - 12/12/2018 21:18 [...] 21:20:38 EST) Problems(Active) Apnea, sleep (SNOMED CT :488002771 ) Name of Problem: Apnea, sleep ; Recorder: JUAN LUIS GIL RN; Confirmation: Confirmed ; Classification: Medical ; Code: [id number] ; Contributor System: PowerChart ; Last Updated: 11/12/2014 10:12 EST ; Life Cycle Date: 11/12/2014 ; Life Cycle Status: Active ; Vocabulary: SNOMED CT Arthritis (SNOMED CT :0481564 ) Name of Problem: Arthritis ; Recorder: KENYON CHAMBERS RN; Confirmation: Confirmed ; Classification: Medical ; Code: 1492629 ; Contributor System: PowerChart ; Last Updated: 04/10/2016 8:04 EDT ; Life Cycle Date: 08/13/2013 ; Life Cycle Status: Active ; Vocabulary: SNOMED CT Atrial fibrillation with RVR (SNOMED CT :2873281338 ) Name of Problem: Atrial fibrillation with RVR ; Recorder: SANG RICO APR; Confirmation: Confirmed ; Classification: Medical ; Code: 1285302771 ; Contributor System: PowerChart ; Last Updated: 04/10/2016 8:05 EDT ; Life Cycle Date: 04/10/2016 ; Life Cycle Status: Active ; Responsible Provider: SANG RICO APR; Vocabulary: SNOMED CT Blood clot (SNOMED CT :672848433 ) Name of Problem: Blood clot ; Recorder: KENYON CHAMBERS RN; Confirmation: Confirmed ; Classification: Patient Stated ; Code: 788179066 ; Contributor System: PowerChart ; Last Updated: [...] Vocabulary: Patient Care Chest pain (SNOMED CT :16681857 ) Name of Problem: Chest pain ; Recorder: SANG RICO APR; Confirmation: Complaint of ; Classification: Medical ; Code: 33693457 ; Contributor System: PowerChart ; Last Updated: 04/10/2016 8:05 EDT ; Life Cycle Status: Active ; Responsible Provider: SANG RICO APR; Vocabulary: SNOMED CT Chronic anticoagulation (SNOMED CT :710234592 ) Name of Problem: Chronic anticoagulation ; Recorder: SANG RICO APR; Confirmation: Confirmed ; Classification: Medical ; Code: 556383000 ; Contributor System: PowerChart ; Last Updated: 04/10/2016 8:05 EDT ; Life Cycle Date: 04/10/2016 ; Life Cycle Status: Active ; Responsible Provider: SANG RICO APR; Vocabulary: SNOMED CT Clotting disorder (SNOMED CT :508129565 ) Name of Problem: Clotting disorder ; Recorder: KENYON CHAMBERS RN; Confirmation: Confirmed ; Classification: Patient Stated ; Code: 843159935 ; Contributor System: PowerChart ; Last Updated: 03/28/2014 19:29 EDT ; Life Cycle Date: 08/13/2013 ; Life Cycle Status: Active ; Vocabulary: SNOMED CT COPD (SNOMED CT :40167927 ) Name of Problem: COPD ; Recorder: KENYON CHAMBERS RN; Confirmation: Confirmed ; Classification: Medical ; Code: 22061006 ; Contributor System: PowerChart ; Last Updated: 04/10/2016 8:03 EDT ; Life Cycle Date: 08/13/2013 ; Life Cycle Status: Active ; Vocabulary: SNOMED CT Coronary artery disease (SNOMED CT :4236696170 ) Name of Problem: Coronary artery disease ; Recorder: KENYON CHAMBERS RN; Confirmation: Confirmed ; Classification: Medical ; Code: 0838082683 ; Contributor System: PowerChart ; Last Updated: 04/10/2016 8:03 EDT ; Life Cycle Date: 08/13/2013 ; Life Cycle Status: Active ; Vocabulary: SNOMED CT Diabetes mellitus (SNOMED CT :179033623 ) Name of Problem: Diabetes mellitus ; Recorder: KENYON CHAMBERS RN; Confirmation: Confirmed ; Classification: Medical ; Code: 172272459 ; Contributor System: PowerChart ; Last Updated: 04/10/2016 8:04 EDT ; Life Cycle Date: 08/13/2013 ; Life Cycle Status: Active ; Vocabulary: SNOMED CT Emphysema (SNOMED CT :530927800 ) Name of Problem: Emphysema ; Recorder: JUAN LUIS GIL RN; Confirmation: Confirmed ; Classification: Medical ; Code: 171528392 ; Contributor System: PowerChart ; Last Updated: 11/12/2014 10:11 EST ; Life Cycle Date: 11/12/2014 ; Life Cycle Status: Active ; Vocabulary: SNOMED CT GERD - Gastro-esophageal reflux disease (SNOMED CT :3958353134 ) Name of Problem: GERD - Gastro-esophageal reflux disease ; Recorder: KENYON CHAMBERS RN; Confirmation: Confirmed ; Classification: Medical ; Code: 9888953455 ; Contributor System: PowerChart ; Last Updated: [...] Patient Care High blood pressure (SNOMED CT :99773867 ) Name of Problem: High blood pressure ; Recorder: KENYON CHAMBERS RN; Confirmation: Confirmed ; Classification: Medical ; Code: 04316618 ; Contributor System: [employer] Biosc[employer]Chart ; Last Updated: 04/10/2016 8:03 EDT ; Life Cycle Date: 08/13/2013 ; Life Cycle Status: Active ; Vocabulary: SNOMED CT Hx of pulmonary embolus (SNOMED CT :312001494 ) Name of Problem: Hx of pulmonary embolus ; Recorder: SANG RICO APR; Confirmation: Confirmed ; Classification: Medical ; Code: 308087939 ; Contributor System: PowerChart ; Last Updated: 04/10/2016 8:05 EDT ; Life Cycle Date: 04/10/2016 ; Life Cycle Status: Active ; Responsible Provider: SANG RICO APR; Vocabulary: SNOMED CT Hyperlipidemia (SNOMED CT :59992620 ) Name of Problem: Hyperlipidemia ; Recorder: KENYON CHAMBERS RN; Confirmation: Confirmed ; Classification: Medical ; Code: 63374204 ; Contributor System: PowerChart ; Last Updated: 04/10/2016 8:03 EDT ; Life Cycle Date: 08/13/2013 ; Life Cycle Status: Active ; Vocabulary: SNOMED CT Multiple renal cysts (SNOMED CT :469413812 ) Name of Problem: Multiple renal cysts ; Recorder: KENYON CHAMBERS RN; Confirmation: Confirmed ; Classification: Medical ; Code: 650121276 ; Contributor System: PowerChart ; Last Updated: 04/10/2016 8:04 EDT ; Life Cycle Date: 08/13/2013 ; Life Cycle Status: Active ; Vocabulary: SNOMED CT Stented coronary artery (SNOMED CT :8857497972 ) Name of Problem: Stented coronary artery ; Recorder: KENYON CHAMBERS RN; Confirmation: Confirmed ; Classification: Medical ; Code: 5973807680 ; Contributor System: PowerChart ; Last Updated: 04/10/2016 8:03 EDT ; Life Cycle Date: 08/13/2013 ; Life Cycle Status: Active ; Vocabulary: SNOMED CT UTI - Urinary tract infection (SNOMED CT :5759979703 ) Name of Problem: UTI - Urinary tract infection ; Recorder: KENYON CHAMBERS RN; Confirmation: Confirmed ; Classification: Medical ; Code: 8966837884 ; Contributor System: PowerChart ; Last Updated: 04/10/2016 8:04 EDT ; Life Cycle Date: 08/13/2013 ; Life Cycle Status: Active ; Vocabulary: SNOMED CT Diagnoses(Active) Chest pain Date: 12/12/2018 ; Diagnosis Type: Reason For Visit ; Confirmation: Complaint of ; Clinical Dx: Chest pain ; Classification: Medical ; Clinical Service: Emergency medicine ; Code: PNED ; Probability: 0 ; Diagnosis Code: [id number] ED Height and Weight Height Source : Stated Height Entry Format : [place] Height, Feet : 5 ft(Converted to: 152 cm, 60 Inch) Height, Inches : 3 Inch(Converted to: 0 ft 3 Inch, 7.62 cm) Clinical Height : 160.02 cm Weight Source, ED : Standing scale Weight Entry Format : [place] Weight, Pounds : 161.7 lb Clinical Dosing Weight : 73.5 kg Body Surface Area (BSA) : 1.77 m2 Body Mass Index : 28.7 kg/m2 (HI) [place] Body Weight (IBW) : 52.02 kg LUCINDA FOFANA RN - 12/12/2018 21:18 EST Electronically signed by Sivan, [facility] Conversion Door To Door Lead Generation Cerner at 02/04/2023 1:58 PM CDT documented in this encounter Plan of Treatment Not on file documented as of this encounter Visit Diagnoses Not on filedocumented in this encounter Care Teams Oil Pumper Relationship Specialty Start Date End Date Jay Howell MD [address] [place] [phone] PCP - General Emergency Medicine 11/12/23 documented as of this encounter
--- OUTSIDE RECORDS SUMMARY | 2025-07-22 07:51 | XMS_ITS | Encounter Summary ---
Author Organization [employer] ([place], [place], [place], [place]) Address [address] [place] [address] Care Team Providers Care Cooker Pie Filling Name Role Phone Jay Howell MD Primary Care Provider [phone] Encounter Details Date Type Department Care Team (Late st Contact Info) Description 08/27/2020 Transcribed Document [facility] Family Medicine [address] [place] [address] ProvidereJssie MD [address] [place] [address] Social History Tobacco Use Types Packs/Day Years Used Date Smoking Tobacco: Never Assessed Comments Unknown Sex and Gender Information Value Date Recorded Sex Assigned at Not on file Legal Sex Female 7:30 PM CDT Gender Identity Not on file Sexual Orientation Not on file documented as of this encounter Miscellaneous Notes * Cerner Conversion Note - Jessie Yuen MD - 08/27/2020 8:20 AM CREW LEADER GLUING Patient: SKYLER MONTOYA Age: 79 years Sex: [...] 08/[address] Verde: *Operation RIGHT STEREO EQUIPMENT REPAIRER access - ultrasound guided Aortogram with LEFT lower extremity run-off LEFT PT angioplasty (2.5-8t421vx Nanocross) LEFT peroneal angioplasty (2.5-3n374bw Nanocross) RIGHT STEREO EQUIPMENT REPAIRER closure (Angioseal) LEFT leg debridement 08/27/20 seen [...] Level 8.8 mg/dL 08/27/2020 03:40 MICRO: ACC: [id number] ORDER: Culture Anaerobic DATE: 08/26/2020 13:56 SOURCE: Surgical Swab SITE: Leg Lower L Reports Pre 08/27/2020 07:47 Culture in progress == ACC: [id number] ORDER: Culture Wound and Stain DATE: 08/26/2020 15:23 SOURCE: Surgical Swab SITE: Leg Lower L Reports Pre 08/27/2020 07:14 No growth GS 08/26/2020 18:13 Few White Blood Cells No organisms seen. == ACC: [id number] ORDER: Culture Fungus DATE: 08/26/2020 13:56 SOURCE: Surgical Swab SITE: Leg Lower L Reports SINDI 08/26/2020 16:09 No Fungal elements seen == ACC: [id number] ORDER: Culture Wound and Stain DATE: 08/25/2020 05:00 SOURCE: Wound SITE: Leg Lower L Reports Pre 08/26/2020 06:23 No growth GS 08/25/2020 07:26 No organisms seen. Few White Blood Cells Rare epithelial cells == ACC: [id number] ORDER: Culture Blood DATE: 08/25/2020 05:01 SOURCE: Blood SITE: Reports Pre 08/27/2020 06:01 No growth at 2 days. Pre 08/26/2020 06:01 No growth at 1 day. Pre 08/25/2020 23:02 Culture less than 24 Hrs old == ACC: [id number] ORDER: Culture Blood DATE: 08/25/2020 05:01 SOURCE: Blood SITE: Reports Pre 08/27/2020 06:01 No growth at 2 days. Pre 08/26/2020 06:01 No growth at 1 day. Pre 08/25/2020 23:02 Culture less than 24 Hrs old == Radiology Results (Last 48 hours) [id number] -- 08/25/2020 05:53 MRI Spine Lumbar WO [...] on filedocumented in this encounter Care Teams Cooker Pie Filling Relationship Specialty Start Date End Date Jay Howell MD [address] [place] [phone] PCP - General Emergency Medicine 11/12/23 documented as of this encounter
--- OUTSIDE RECORDS SUMMARY | 2025-07-22 07:51 | XMS_ITS | Encounter Summary ---
Author Organization [employer] ([place], [place], [place], [place]) Address [address] [place] [address] Care Team Providers Care Coating Manager Name Role Phone Jay Howell MD Primary Care Provider [phone] Encounter Details Date Type Department Care Team (Late st Contact Info) Description 08/28/2020 Transcribed Document [facility] [place] [address] [place] [address] ProviderJessie MD [address] [place] [address] Social History Tobacco Use Types Packs/Day Years Used Date Smoking Tobacco: Never Assessed Comments Unknown Sex and Gender Information Value Date Recorded Sex Assigned at Not on file Legal Sex Female 7:30 PM CDT Gender Identity Not on file Sexual Orientation Not on file documented as of this encounter Miscellaneous Notes * Cerner Conversion Note - Jessie Yuen MD - 08/28/2020 10:32 AM INSURANCE VERIFICATION CLERK Patient: SKYLER MONTOYA Age: 79 years [...] level of muscle per surgery *Operation RIGHT APPOINTMENT CLERK access - ultrasound guided Aortogram with LEFT lower extremity run-off LEFT PT angioplasty (2.5-8s702hb Nanocross) LEFT peroneal angioplasty (2.5-5a283xj Nanocross) RIGHT APPOINTMENT CLERK closure (Angioseal) LEFT leg debridement 08/28/20 seen [...] Level 8.8 mg/dL 08/27/2020 03:40 MICRO: ACC: [id number] ORDER: Culture Wound and Stain DATE: 08/25/2020 05:00 SOURCE: Wound SITE: Leg Lower L Reports Final 08/28/2020 08:57 No growth Pre 08/26/2020 06:23 No growth GS 08/25/2020 07:26 No organisms seen. Few White Blood Cells Rare epithelial cells == ACC: [id number] ORDER: Culture AFB and Stain DATE: 08/26/2020 13:56 SOURCE: Surgical Swab SITE: Leg Lower L Reports AFS 08/27/2020 13:07 No Acid Fast Bacilli seen == ACC: [id number] ORDER: Culture Anaerobic DATE: 08/26/2020 13:56 SOURCE: Surgical Swab SITE: Leg Lower L Reports Pre 08/28/2020 07:01 No Anaerobic growth Pre 08/27/2020 07:47 Culture in progress == ACC: [id number] ORDER: Culture Wound and Stain DATE: 08/26/2020 15:23 SOURCE: Surgical Swab SITE: Leg Lower L Reports Pre 08/27/2020 07:14 No growth GS 08/26/2020 18:13 Few White Blood Cells No organisms seen. == ACC: [id number] ORDER: Culture Fungus DATE: 08/26/2020 13:56 SOURCE: Surgical Swab SITE: Leg Lower L Reports SINDI 08/26/2020 16:09 No Fungal elements seen == ACC: [id number] ORDER: Culture Blood DATE: 08/25/2020 05:01 SOURCE: Blood SITE: Reports Pre 08/28/2020 06:01 No growth at 3 days. Pre 08/27/2020 06:01 No growth at 2 days. Pre 08/26/2020 06:01 No growth at 1 day. Pre 08/25/2020 23:02 Culture less than 24 Hrs old == ACC: [id number] ORDER: Culture Blood DATE: 08/25/2020 05:01 SOURCE: Blood SITE: Reports Pre 08/28/2020 06:01 No growth at 3 days. Pre 08/27/2020 06:01 No growth at 2 days. Pre 08/26/2020 06:01 No growth at 1 day. Pre 08/25/2020 23:02 Culture less than 24 Hrs old == Radiology Results (Last 48 hours) [id number] -- 08/25/2020 05:53 CT Abdomen WO W [...] on filedocumented in this encounter Care Teams Coating Manager Relationship Specialty Start Date End Date Jay Howell MD [address] [place] [phone] PCP - General Emergency Medicine 11/12/23 documented as of this encounter
--- OUTSIDE RECORDS SUMMARY | 2025-07-22 07:51 | XMS_ITS | Encounter Summary ---
Author Organization [employer] ([place], [place], [place], [place]) Address [address] [place] [address] Care Team Providers Care Operating Room Aide Name Role Phone Jay Howell MD Primary Care Provider [phone] Encounter Details Date Type Department Care Team (Late st Contact Info) Description 03/19/2021 Transcribed Document [facility] [place] [facility] [place] [address] ProviderJessie MD [address] [place], [place] [address] Social History Tobacco Use Types Packs/Day Years [...] 2. Calcification of the vertebral origins with sfai-zu-iawsybeb stenosis. 3. Extensive vascular calcification. 4. Severe [...] difficult. The CTA also shows bilateral proximal LICENSED SALES PRODUCER stenoses. The differential could include one or [...] mg= 2 mL, IV Push, Q4H, PRN Electronically signed by Gayle Finnegan Conversion Non Licensed Nuclear Equipment Operator Cerner at 02/04/2023 2:22 PM CDT documented in this encounter Plan of Treatment Not on file documented as of this encounter Visit Diagnoses Not on filedocumented in this encounter Care Teams Operating Room Aide Relationship Specialty Start Date End Date Jay Howell MD [address] [place] [phone] PCP - General Emergency Medicine 11/12/23 documented as of this encounter
--- OUTSIDE RECORDS SUMMARY | 2025-07-22 07:51 | XMS_ITS | Encounter Summary ---
Author Organization [employer] ([place], [place], [place], [place]) Address [address] [place] [address] Care Team Providers Care Pain Medicine Physician Name Role Phone Jay Howell MD Primary Care Provider [phone] Encounter Details Date Type Department Care Team (Late st Contact Info) Description 03/19/2021 Transcribed Document [facility] [place] Family Medicine [address] [place] [address] ProviderJessie MD [address] [place] [id number] Social History Tobacco Use Types Packs/Day Years [...] 03/19/2021 15:48 EDT by Krystina Giang V, Admin Prog Coord Pulp Refiner Operator Final Discharge Planning Discharge Arrangements : Patient [...] : Yes Discharge To Care Management : Home/Residential/Fdc or Self Care -01 Krystina Giang V, Admin Prog Coord [facility] [place] - 03/19/2021 15:48 EDT Final Narrative Note Final Narrative Note : DC home with spouse. Follow up with outpatient Physical therapy in home town. IM signed. Krystina Giang V Admin Prog Coord [facility] - 03/19/2021 15:48 EDT Electronically signed by [facility] Conversion Skate Shop Attendant Cerner at 02/04/2023 2:08 PM CDT documented in this encounter Plan of Treatment Not on file documented as of this encounter Visit Diagnoses Not on filedocumented in this encounter Care Teams Pain Medicine Physician Relationship Specialty Start Date End Date Jay Howell MD [address] [place] [phone] PCP - General Emergency Medicine 11/12/23 documented as of this encounter
--- OUTSIDE RECORDS SUMMARY | 2025-07-22 07:51 | XMS_ITS | Encounter Summary ---
Author Organization [employer] ([place], [place], [place], [place]) Address [address] [place] [address] Care Team Providers Care Car Dryer Name Role Phone Jay Howell MD Primary Care Provider [phone] Encounter Details Date Type Department Care Team (Late st Contact Info) Description 03/19/2021 Transcribed Document [facility] [place] [address] [place] [address] ProviderJessie MD [address] [place] [address] Social History Tobacco Use Types Packs/Day [...] Yuen MD - 03/19/2021 2:50 PM CDT [facility] [place] [address] SKYLER MONTOYA :1940 Visit Time:03/17/2021 Your Visit Summary Your Care Team Admitting Physician - MARIA ELENA DAVALOS [facility] Attending Physician - SARAH CONTEH MD [...] or [place] ( Hand Surgery) on d/c. [phone] Activity: Discharge Activity: Activity as tolerated Diet: Discharge Diet: Heart healthy diet Driving Restriction: Do Not Drive due to fainting episode until your doctor says you can Follow-Up Appointments Follow Up with ANDERSON CARRASCO MD When Within 3 to 5 days Comments for ortho eval for fracture wrist Where: [address] [address]- Follow Up with WOO JOHNSTON When Within 2 to 4 weeks Where: [address] [place] [address] [place] [address]- Business (1) Follow Up with JEFFERSON MENDOZA When Within 6 weeks Comments Patient should call for a follow up appointment with [facility] Neurology. Where: [address] [place] [address]- Business (1) Medications What How Much When [...] activities are safe for you. ??? Take tfmq-hiw-snlzxbi and prescription medicines only as told by [...] provider. Document Revised: 07/31/2018 Document Reviewed: 03/26/2017 [employer] Patient Education ?? 2020 [employer] Near-Syncope Near-syncope is when you suddenly [...] these instructions at home: Medicines ??? Take laas-xyf-xfbfcpz and prescription medicines only as told by [...] Reviewed: 08/22/2019 Elsevier Patient Education ?? 2020 [employer]. Emergency Awareness and Preventative Care STROKE is [...] Assistance with quitting is available by contacting 9-327-QEJU-NOW. This is a free resource providing counseling, [...] range between ( 0.0 and 7.0 ) [place] #: 0.59 K/uL -- Normal range between ( 0.16 and 1.00 ) [place] #: 0.00 x10(3)/uL -- Normal range between ( 0.00 and 0.80 ) [place] %: 8.9 % -- Normal range between [...] /LPF Urine Bilirubin Dipstick: Negative Urine Specific [place]: 1.015 -- Normal range between ( 1.005 [...] was given the opportunity to ask questions. Patient/Transport Rn Name: Patient/Transport Rn Signature: Relationship to Patient: Clinician/Hospital Transport Rn Signature: Date: Electronically signed by Sivan, [facility] Conversion Gum Worker Cerner at 02/04/2023 2:18 PM CDT documented in this encounter Plan of Treatment Not on file documented as of this encounter Visit Diagnoses Not on filedocumented in this encounter Care Teams Car Dryer Relationship Specialty Start Date End Date Jay Howell MD [address] [place] [phone] PCP - General Emergency Medicine 11/12/23 documented as of this encounter
--- OUTSIDE RECORDS SUMMARY | 2025-07-22 07:51 | XMS_ITS | Encounter Summary ---
Author Organization [employer] ([place], [place], [place], [place]) Address [address] [place] [address] Care Team Providers Care Valet Name Role Phone Jay Howell MD Primary Care Provider [phone] Encounter Details Date Type Department Care Team (Late st Contact Info) Description 08/27/2020 Transcribed Document [facility] [place] Family Medicine [address] [place] [address] ProviderJessie MD [address] [place], [place] [id number] Social History Tobacco Use Types Packs/Day Years Used Date Smoking Tobacco: Never Assessed Comments Unknown Sex and Gender Information Value Date Recorded Sex Assigned at Not on file Legal Sex Female 7:30 PM CDT Gender Identity Not on file Sexual Orientation Not on file documented as of this encounter Miscellaneous Notes * Cerner Conversion Note - Historical ProviderMD - 08/27/2020 5:00 PM STATIONARY ENGINEER SUPERVISOR Chart Check - Review Order Profile Entered On: 08/27/2020 19:43 EST Performed On: 08/27/2020 17:00 EST by JOAO ROSA RN Chart Check [employer] Initiated/Discontinued as Appropriate : Yes All Active Orders Reviewed : Yes JOAO ROSA RN - 08/27/2020 19:43 EST Electronically signed by Sivan [facility] Conversion Sand Technician Cerner at 02/04/2023 2:08 PM CDT documented in this encounter Plan of Treatment Not on file documented as of this encounter Visit Diagnoses Not on filedocumented in this encounter Care Teams Valet Relationship Specialty Start Date End Date Jay Howell MD [address] [place] [phone] PCP - General Emergency Medicine 11/12/23 documented as of this encounter
--- OUTSIDE RECORDS SUMMARY | 2025-07-22 07:51 | XMS_ITS | Encounter Summary ---
Author Organization [employer] ([place], [place], [place], [place]) Address [address] [place] [address] Care Team Providers Care Data Analytics Developer Name Role Phone Jay Howell MD Primary Care Provider [phone] Encounter Details Date Type Department Care Team (Late st Contact Info) Description 03/19/2021 Transcribed Document [facility] [place] Medicine [facility] [place] [address] ProviderJessie MD [address] [place] [address] [phone] Social History Tobacco Use Types Packs/Day Years [...] 2. Calcification of the vertebral origins with csag-bf-aiwerihu stenosis. 3. Extensive vascular calcification. 4. Severe centrilobular emphysema. 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 We [...] 03/19/2021 06:06 EDT Electronically signed by Sivan [facility] Conversion Early Childhood Cerner at 02/04/2023 2:09 PM CDT documented in this encounter Plan of Treatment Not on file documented as of this encounter Visit Diagnoses Not on filedocumented in this encounter Care Teams Data Analytics Developer Relationship Specialty Start Date End Date Jay Howell MD [address] [place] [phone] PCP - General Emergency Medicine 11/12/23 documented as of this encounter
--- OUTSIDE RECORDS SUMMARY | 2025-07-22 07:51 | XMS_ITS | Encounter Summary ---
Author Organization [employer] ([place], [place], [place], [place]) Address [address] [place] [address] Care Team Providers Care Production Control Clerk Name Role Phone Jay Howell MD Primary Care Provider [phone] Encounter Details Date Type Department Care Team (Late st Contact Info) Description 08/28/2020 Transcribed Document [facility] [place] [address] [place] [address] ProviderJessie MD [address] [place], [place] [address]291 Social History Tobacco Use Types Packs/Day Years Used Date Smoking Tobacco: Never Assessed Comments Unknown Sex and Gender Information Value Date Recorded Sex Assigned at Not on file Legal Sex Female 7:30 PM CDT Gender Identity Not on file Sexual Orientation Not on file documented as of this encounter Miscellaneous Notes * Cerner Conversion Note - Historical ProviderMD - 08/28/2020 5:00 PM RADAR OPERATOR Chart Check - Review Order Profile Entered On: 08/28/2020 18:04 EST Performed On: 08/28/2020 17:00 EST by Jose L Jones RN Chart Check All Active Orders Reviewed : Yes Jose L Jones RN - 08/28/2020 18:04 EST Electronically signed by Sivan [facility] Conversion Marketing Proposal Coordinator Cerner at 02/04/2023 2:20 PM CDT documented in this encounter Plan of Treatment Not on file documented as of this encounter Visit Diagnoses Not on filedocumented in this encounter Care Teams Production Control Clerk Relationship Specialty Start Date End Date Jay Howell MD [address] [place] [phone] PCP - General Emergency Medicine 11/12/23 documented as of this encounter
--- OUTSIDE RECORDS SUMMARY | 2025-07-22 07:51 | XMS_ITS | Encounter Summary ---
Author Organization [facility] Address [address] [place] [address] Care Team Providers Care Neurophysiology Tech Name Role Phone Jay Howell MD Primary Care Provider [phone] Reason for Visit * Reason Onset Date Comments ALICE - MEDICAL RECORDS REQUEST 07/02/2025 Encounter Details Date Type Department Care Team (Late st Contact Info) Description 07/02/2025 Telephone [facility] CARDIOLOGY [address] [place] [address] Brenda Guerrier APRN [address] [place] [address] ALICE - MEDICAL RECORDS REQUEST Social History [...] 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 SHE CAN FILL OUT THE SHARON FORM AT HER APPT IF THEY NEED ANYTHING OTHER THAN WHAT WE CAN SEE. THANKS. * Telephone Encounter - Radha Prince RegSched Rep - 07/02/2025 10:43 AM EDT Caller: Miladis Montoya Relationship: Self Best call back number: [phone] What form or medical record are you requesting: MEDICAL RECORDS. Who is requesting this form or medical record from you: DR FLOR LÓPEZ WITH [facility] IN [place], [place] How would you like to receive the form or medical records (pick-up, mail, fax): FAX If fax, what is the fax number: [phone] Timeframe paperwork needed: PAULETTE - BEFORE APPOINTMENT ON 07.10.25 Additional notes: PATIENT HAS APPOINTMENT WITH [facility] ON 07.10.25 AND NEEDS TO HAVE MEDICAL RECORDS FROM [facility] SENT OVER. HOWEVER, [facility] NEEDS A MEDICAL RECORDS REQUEST FORM FROM THE OFFICE BEFORE THEY ARE WILLING TO FAX THEM TO US. documented in this encounter Plan of Treatment Not on file documented as of this encounter Visit Diagnoses Not on filedocumented in this encounter Care Teams Neurophysiology Tech Relationship Specialty Start Date End Date Jay Howell MD [address] [place] [address] PCP - General Emergency Medicine 04/28/23 documented as of this encounter
--- OUTSIDE RECORDS SUMMARY | 2025-07-22 07:51 | XMS_ITS | Encounter Summary ---
Author Organization [facility] ([place], [place], [place], [place]) Address [address] [place] [address] Care Team Providers Care Risk Reduction Counselor Name Role Phone Jay Howell MD Primary Care Provider [phone] Encounter Details Date Type Department Care Team (Late st Contact Info) Description 07/18/2021 Transcribed Document [facility] [place] [address] [place] [address] ProviderJessie MD [address] [place] [address] [phone] Social History Tobacco Use Types Packs/Day Years [...] filedocumented in this encounter Care Teams Risk Reduction Counselor Relationship Specialty Start Date End Date Jay Howell MD [address] [place] [phone] PCP - General Emergency Medicine 11/12/23 documented as of this encounter
--- OUTSIDE RECORDS SUMMARY | 2025-07-22 07:51 | XMS_ITS | Encounter Summary ---
Author Organization [employer] ([place], [place], [place], [place]) Address [address] [place] [address] Care Team Providers Care Housekeeping Attendant Name Role Phone Jay Howell MD Primary Care Provider [phone] Encounter Details Date Type Department Care Team (Late st Contact Info) Description 12/12/2018 Transcribed Document [facility] [place] [address] [place] [address] ProviderJessie MD [address] [place] [address] Social History Tobacco Use Types [...] - Historical ProviderMD - 12/12/2018 10:41 PM CERAMIC TILE INSTALLER [address] [place], [place] [id number] PERSON INFORMATION Name SKYLER MONTOYA Age 77 Years 1940 Sex Female Language Singaporean PCP TARA CHEN (REF), -MED Marital Status Med Service Emergency Medicine Acct# Arrival 12/12/2018 20:58:00 Visit Reason Chest pain; CHEST PAIN FOR LAST 2HRS Acuity 2 - Emergent LOS 000 01:43 Depart Date: 02/26/19 10:41 PM Address: [place] [address] Comment: PROVIDER INFORMATION Provider Role Assigned Unassigned [...] please contact the Patient Resource Center at [phone]. With: Address: When: Follow-up with your tax commissioner in the morning. Return to the closest emergency department for any acute new concerns or recurrence of symptoms. Within in AM With: Address: When: TARA CHEN [address] [facility] [place] [address] Business (1) Within 2 to 3 days Comment: documented in this encounter Plan of Treatment Not on file documented as of this encounter Visit Diagnoses Not on filedocumented in this encounter Care Teams Housekeeping Attendant Relationship Specialty Start Date End Date Jay Howell MD [address] [place] [phone] PCP - General Emergency Medicine 11/12/23 documented as of this encounter
--- OUTSIDE RECORDS SUMMARY | 2025-07-22 07:51 | XMS_ITS | Encounter Summary ---
Author Organization [employer] ([place], [place], [place], [place]) Address [address] [place] [address] Care Team Providers Care Mechanical Designer Name Role Phone Jay Howell MD Primary Care Provider [phone] Encounter Details Date Type Department Care Team (Late st Contact Info) Description 03/19/2021 Transcribed Document [facility] [place] [facility] [place] [address] ProviderJessie MD [address] [place] [address] [phone] Social History Tobacco Use Types Packs/Day Years Used Date Smoking Tobacco: Never Assessed Comments Unknown Sex and Gender Information Value Date Recorded Sex Assigned at Not on file Legal Sex Female 7:30 PM CDT Gender Identity Not on file Sexual Orientation Not on file documented as of this encounter Miscellaneous Notes * Cerner Conversion Note - Jessie ProviderMD - 03/19/2021 2:00 AM CDT Segregator Details Entered On: 03/19/2021 2:31 EDT Performed [...] Non Emp RN - 03/19/2021 2:31 EDT Electronically signed by Sivan [facility] Conversion Business Process Engineer Cerner at 02/04/2023 2:11 PM CDT documented in this encounter Plan of Treatment Not on file documented as of this encounter Visit Diagnoses Not on filedocumented in this encounter Care Teams Mechanical Designer Relationship Specialty Start Date End Date Jay Howell MD [address] [place] [phone] PCP - General Emergency Medicine 11/12/23 documented as of this encounter
--- OUTSIDE RECORDS SUMMARY | 2025-07-22 07:51 | XMS_ITS | Encounter Summary ---
Author Organization [employer] ([place], [place], [place], [place]) Address [address] [place] [address] Care Team Providers Care Flame Planer Name Role Phone Jay Howell MD Primary Care Provider [phone] Encounter Details Date Type Department Care Team (Late st Contact Info) Description 08/27/2020 Transcribed Document [facility] [place] [address] [place] [address] ProviderJessie MD [address] [place], [place] [address] Social History Tobacco Use Types Packs/Day Years Used Date Smoking Tobacco: Never Assessed Comments Unknown Sex and Gender Information Value Date Recorded Sex Assigned at Not on file Legal Sex Female 7:30 PM CDT Gender Identity Not on file Sexual Orientation Not on file documented as of this encounter Miscellaneous Notes * Cerner Conversion Note - Historical ProviderMD - 08/27/2020 3:10 PM CATALOG LIBRARIAN Patient: SKYLER MONTOYA Age: 79 Years Sex: [...] (High) 08/27/2020 08:41 EST Electronically signed by [facility] Conversion Immunologist Cerner at 02/04/2023 2:06 PM CDT documented in this encounter Plan of Treatment Not on file documented as of this encounter Visit Diagnoses Not on filedocumented in this encounter Care Teams Flame Planer Relationship Specialty Start Date End Date Jay Howell MD [address] [place] [phone] PCP - General Emergency Medicine 11/12/23 documented as of this encounter
--- OUTSIDE RECORDS SUMMARY | 2025-07-22 07:51 | XMS_ITS | Encounter Summary ---
Author Organization [employer] ([place], [place], [place], [place]) Address [address] [place] [address] Care Team Providers Care Preparole Counseling Aide Name Role Phone Jay Howell MD Primary Care Provider [phone] Encounter Details Date Type Department Care Team (Late st Contact Info) Description 08/27/2020 Transcribed Document [facility] [place] Medicine [address] [place] [address] ProviderJessie MD [address] [place] [address] Social History Tobacco Use Types Packs/Day Years Used Date Smoking Tobacco: Never Assessed Comments Unknown Sex and Gender Information Value Date Recorded Sex Assigned at Not on file Legal Sex Female 7:30 PM CDT Gender Identity Not on file Sexual Orientation Not on file documented as of this encounter Miscellaneous Notes * Cerner Conversion Note - Jessie Yuen MD - 08/27/2020 5:54 PM HOT KNIFE CUTTER Patient: SKYLER MONTOYA Age: 79 Years Sex: [...] multiple stent placements. The patient presented to [facility] ER after recent fall with hematoma [...] Vitamins oral tablet, 1 Tab, Oral, Daily [place] 7.5 mg-325 mg oral tablet, 1 Tab, [...] (High) 08/27/2020 08:41 EST Electronically signed by [facility] Conversion Recycling Sorter Cerner at 02/04/2023 2:05 PM CDT documented in this encounter Plan of Treatment Not on file documented as of this encounter Visit Diagnoses Not on filedocumented in this encounter Care Teams Preparole Counseling Aide Relationship Specialty Start Date End Date Jay Howell MD [address] [place] [phone] PCP - General Emergency Medicine 11/12/23 documented as of this encounter
--- OUTSIDE RECORDS SUMMARY | 2025-07-22 07:51 | XMS_ITS | Encounter Summary ---
Author Organization [employer] ([place], [place], [place], [place]) Address [address] [place] [address] Care Team Providers Care Shipping Technician Name Role Phone Jay Howell MD Primary Care Provider [phone] Encounter Details Date Type Department Care Team (Late st Contact Info) Description 07/18/2021 Transcribed Document [facility] [place] [facility] [place] [address] ProviderJessie MD [address] [place], [place] [address]201 Social History Tobacco Use Types Packs/Day Years [...] filedocumented in this encounter Care Teams Shipping Technician Relationship Specialty Start Date End Date Jay Howell MD [address] [place] [phone] PCP - General Emergency Medicine 11/12/23 documented as of this encounter
--- OUTSIDE RECORDS SUMMARY | 2025-07-22 07:51 | XMS_ITS | Encounter Summary ---
Author Organization [employer] ([place], [place], [place], [place]) Address [address] [place] [address] Care Team Providers Care Global Chief Creative Officer Name Role Phone Jay Howell MD Primary Care Provider [phone] Encounter Details Date Type Department Care Team (Late st Contact Info) Description 07/18/2021 Transcribed Document [facility] [place] [facility] [place] [address] ProviderJessie MD [address] [place], [place] [phone] Social History Tobacco Use Types Packs/Day Years [...] : 3 - Urgent Tracking Group : [facility] ED CHETAN BRASWELL RN-Resource - 07/18/2021 15:10 [...] 15:12:21 EDT) Problems(Active) Apnea, sleep (SNOMED CT :574429676 ) Name of Problem: Apnea, sleep ; Recorder: JUAN LUIS GIL RN; Confirmation: Confirmed ; Classification: Medical ; Code: [id number] ; Contributor System: PowerChart ; Last Updated: 11/12/2014 10:12 EST ; Life Cycle Date: 11/12/2014 ; Life Cycle Status: Active ; Vocabulary: SNOMED CT Arthritis (SNOMED CT :6455744 ) Name of Problem: Arthritis ; Recorder: KENYON CHAMBERS RN; Confirmation: Confirmed ; Classification: Medical ; Code: [id number] ; Contributor System: PowerChart ; Last Updated: 04/10/2016 8:04 EDT ; Life Cycle Date: 08/13/2013 ; Life Cycle Status: Active ; Vocabulary: SNOMED CT Atrial fibrillation with RVR (SNOMED CT :8656986252 ) Name of Problem: Atrial fibrillation with RVR ; Recorder: SANG RICO APRN; Confirmation: Confirmed ; Classification: Medical ; Code: [id number] ; Contributor System: PowerChart ; Last Updated: 04/10/2016 8:05 EDT ; Life Cycle Date: 04/10/2016 ; Life Cycle Status: Active ; Responsible Provider: SANG RICO APRN; Vocabulary: SNOMED CT Blood clot (SNOMED CT :346814872 ) Name of Problem: Blood clot ; Recorder: KENYON CHAMBERS RN; Confirmation: Confirmed ; Classification: Patient Stated ; Code: 206762917 ; Contributor System: PowerChart ; Last Updated: [...] Vocabulary: Patient Care Chest pain (SNOMED CT :96964094 ) Name of Problem: Chest pain ; Recorder: SANG RICO APRN; Confirmation: Complaint of ; Classification: Medical ; Code: 08631010 ; Contributor System: PowerChart ; Last Updated: 04/10/2016 8:05 EDT ; Life Cycle Status: Active ; Responsible Provider: SANG RICO APRN; Vocabulary: SNOMED CT Chronic anticoagulation (SNOMED CT :418591017 ) Name of Problem: Chronic anticoagulation ; Recorder: SANG RICO APRN; Confirmation: Confirmed ; Classification: Medical ; Code: 581681531 ; Contributor System: SIS Media GroupChart ; Last Updated: 04/10/2016 8:05 EDT ; Life Cycle Date: 04/10/2016 ; Life Cycle Status: Active ; Responsible Provider: SANG RICO APRN; Vocabulary: SNOMED CT Clotting disorder (SNOMED CT :401499344 ) Name of Problem: Clotting disorder ; Recorder: KENYON CHMABERS RN; Confirmation: Confirmed ; Classification: Patient Stated ; Code: 363659167 ; Contributor System: PowerChart ; Last Updated: 03/28/2014 19:29 EDT ; Life Cycle Date: 08/13/2013 ; Life Cycle Status: Active ; Vocabulary: SNOMED CT COPD (SNOMED CT :02139671 ) Name of Problem: COPD ; Recorder: KENYON CHAMBERS RN; Confirmation: Confirmed ; Classification: Medical ; Code: 96100964 ; Contributor System: PowerChart ; Last Updated: 04/10/2016 8:03 EDT ; Life Cycle Date: 08/13/2013 ; Life Cycle Status: Active ; Vocabulary: SNOMED CT Coronary artery disease (SNOMED CT :5762301015 ) Name of Problem: Coronary artery disease ; Recorder: KENYON CHAMBERS RN; Confirmation: Confirmed ; Classification: Medical ; Code: [id number] ; Contributor System: SIS Media GroupChart ; Last Updated: 04/10/2016 8:03 EDT ; Life Cycle Date: 08/13/2013 ; Life Cycle Status: Active ; Vocabulary: SNOMED CT Diabetes mellitus (SNOMED CT :715803515 ) Name of Problem: Diabetes mellitus ; Recorder: KENYON CHAMBERS RN; Confirmation: Confirmed ; Classification: Medical ; Code: 935472291 ; Contributor System: SIS Media GroupChart ; Last Updated: 04/10/2016 8:04 EDT ; Life Cycle Date: 08/13/2013 ; Life Cycle Status: Active ; Vocabulary: SNOMED CT Emphysema (SNOMED CT :731180985 ) Name of Problem: Emphysema ; Recorder: JUAN LUIS GIL RN; Confirmation: Confirmed ; Classification: Medical ; Code: 811969950 ; Contributor System: PowerChart ; Last Updated: 11/12/2014 10:11 EST ; Life Cycle Date: 11/12/2014 ; Life Cycle Status: Active ; Vocabulary: SNOMED CT GERD - Gastro-esophageal reflux disease (SNOMED CT :1846984705 ) Name of Problem: GERD - Gastro-esophageal reflux disease ; Recorder: KENYON CHAMBERS RN; Confirmation: Confirmed ; Classification: Medical ; Code: 2760605238 ; Contributor System: PowerChart ; Last Updated: [...] Patient Care High blood pressure (SNOMED CT :03353385 ) Name of Problem: High blood pressure ; Recorder: KENYON CHAMBERS RN; Confirmation: Confirmed ; Classification: Medical ; Code: 64689519 ; Contributor System: PowerChart ; Last Updated: 04/10/2016 8:03 EDT ; Life Cycle Date: 08/13/2013 ; Life Cycle Status: Active ; Vocabulary: SNOMED CT History of obstructive sleep apnea (IMO :79532517 ) Name of Problem: History of obstructive sleep apnea ; Recorder: SYSTEM, SYSTEM; Confirmation: Confirmed ; Classification: Medical ; Code: 23176915 ; Last Updated: 08/25/2020 18:21 EST ; Life Cycle Date: 08/25/2020 ; Life Cycle Status: Active ; Vocabulary: IMO Hx of pulmonary embolus (SNOMED CT :501580844 ) Name of Problem: Hx of pulmonary embolus ; Recorder: SANG RICO APRN; Confirmation: Confirmed ; Classification: Medical ; Code: 842077136 ; Contributor System: PowerChart ; Last Updated: 04/10/2016 8:05 EDT ; Life Cycle Date: 04/10/2016 ; Life Cycle Status: Active ; Responsible Provider: SANG RICO APRN; Vocabulary: SNOMED CT Hyperlipidemia (SNOMED CT :76309613 ) Name of Problem: Hyperlipidemia ; Recorder: KENYON CHAMBERS RN; Confirmation: Confirmed ; Classification: Medical ; Code: 20345012 ; Contributor System: PowerChart ; Last Updated: 04/10/2016 8:03 EDT ; Life Cycle Date: 08/13/2013 ; Life Cycle Status: Active ; Vocabulary: SNOMED CT Multiple renal cysts (SNOMED CT :119951303 ) Name of Problem: Multiple renal cysts ; Recorder: KENYON CHAMBERS RN; Confirmation: Confirmed ; Classification: Medical ; Code: 160871768 ; Contributor System: [employer] GroupChart ; Last Updated: 04/10/2016 8:04 EDT ; Life Cycle Date: 08/13/2013 ; Life Cycle Status: Active ; Vocabulary: SNOMED CT Stented coronary artery (SNOMED CT :0491315212 ) Name of Problem: Stented coronary artery ; Recorder: KENYON CHAMBERS RN; Confirmation: Confirmed ; Classification: Medical ; Code: 7163688265 ; Contributor System: S[employer] GroupChart ; Last Updated: 04/10/2016 8:03 EDT ; Life Cycle Date: 08/13/2013 ; Life Cycle Status: Active ; Vocabulary: SNOMED CT Diagnoses(Active) Chest pain Date: 07/18/2021 ; Diagnosis Type: Reason For Visit ; Confirmation: Complaint of ; Clinical Dx: Chest pain ; Classification: Medical ; Clinical Service: Emergency medicine ; Code: PNED ; Probability: 0 ; Diagnosis Code: [id number] ED Height and Weight Height Source : Stated Height Entry Format : Dennis Height, Feet : 5 ft(Converted to: 152 cm, 60 Inch) Height, Inches : 3 Inch(Converted to: 0 ft 3 Inch, 7.62 cm) Clinical Height : 160.02 cm Weight Source, ED : Critical estimated dosing weight Weight Entry Format : Dennis Weight, Pounds : 154 lb Clinical Dosing Weight : 70 kg Body Surface Area (BSA) : 1.73 m2 Body Mass Index : 27.3 kg/m2 (HI) [place] Body Weight (IBW) : 52.02 kg CHETAN [...] of the form. Electronically signed by Sivan [facility] Conversion Factory Superintendent Cerner at 02/04/2023 2:06 PM CDT documented in this encounter Plan of Treatment Not on file documented as of this encounter Visit Diagnoses Not on filedocumented in this encounter Care Teams Global Chief Creative Officer Relationship Specialty Start Date End Date Jay Howell MD [address] [place] [phone] PCP - General Emergency Medicine 11/12/23 documented as of this encounter
--- OUTSIDE RECORDS SUMMARY | 2025-07-22 07:51 | XMS_ITS | Encounter Summary ---
Author Organization [employer] ([place], [place], [place], [place]) Address [address] [place] [address] Care Team Providers Care Business Computers Teacher Name Role Phone Jay Howell MD Primary Care Provider [phone] Encounter Details Date Type Department Care Team (Late st Contact Info) Description 09/01/2020 Transcribed Document [facility] [place] Family Medicine [address] [place] [address] ProviderJessie MD [address] [place] [address] Social History Tobacco Use Types Packs/Day Years Used Date Smoking Tobacco: Never Assessed Comments Unknown Sex and Gender Information Value Date Recorded Sex Assigned at Not on file Legal Sex Female 7:30 PM CDT Gender Identity Not on file Sexual Orientation Not on file documented as of this encounter Miscellaneous Notes * Cerner Conversion Note - Historical ProviderMD - 09/01/2020 2:22 PM INTELLIGENCE CLERK Stroke/Warfarin Instructions Entered On: 09/01/2020 14:22 EST Performed On: 09/01/2020 14:22 EST by Kailee Velasquez RN Stroke/Warfarin Instructions Stroke/TIA Discharge Ins : N/A Warfarin Discharge Ins : N/A Kailee Velasquez RN - 09/01/2020 14:22 EST documented in this encounter Plan of Treatment Not on file documented as of this encounter Visit Diagnoses Not on filedocumented in this encounter Care Teams Business Computers Teacher Relationship Specialty Start Date End Date Jay Howell MD [address] [place] [phone] PCP - General Emergency Medicine 11/12/23 documented as of this encounter
--- OUTSIDE RECORDS SUMMARY | 2025-07-22 07:51 | XMS_ITS | Encounter Summary ---
Author Organization [employer] ([place], [place], [place], [place]) Address [address] [place] [address] Care Team Providers Care Industrial Conveyor Belt Repairer Name Role Phone Jay Howell MD Primary Care Provider [phone] Encounter Details Date Type Department Care Team (Late st Contact Info) Description 03/19/2021 Transcribed Document [facility] [place] [address] [place] [address] ProviderJessie MD [address] [place] [address] Social History Tobacco Use Types Packs/Day Years [...] filedocumented in this encounter Care Teams Industrial Conveyor Belt Repairer Relationship Specialty Start Date End Date Jay Howell MD [address] [place] [phone] PCP - General Emergency Medicine 11/12/23 documented as of this encounter
--- OUTSIDE RECORDS SUMMARY | 2025-07-22 07:51 | XMS_ITS | Encounter Summary ---
Author Organization [employer] ([place], [place], [place], [place]) Address [address] [place] [place] [address] Care Team Providers Care Door Liner Helper Name Role Phone Jay Howell MD Primary Care Provider [phone] Encounter Details Date Type Department Care Team (Late st Contact Info) Description 07/18/2021 Transcribed Document [facility] [place] Family Medicine [address] [place] [address] ProviderJessie MD [address] [place] [address] Social History Tobacco Use Types Packs/Day Years [...] 07/18/2021 8:15 PM CDT Electronically signed by [facility] Conversion Tool Programmer Cerner at 02/04/2023 2:03 PM CDT documented in this encounter Plan of Treatment Not on file documented as of this encounter Visit Diagnoses Not on filedocumented in this encounter Care Teams Door Liner Helper Relationship Specialty Start Date End Date Jay Howell MD [address] [place] [phone] PCP - General Emergency Medicine 11/12/23 documented as of this encounter
--- OUTSIDE RECORDS SUMMARY | 2025-07-22 07:51 | XMS_ITS | Encounter Summary ---
Author Organization [employer] ([place], [place], [place], [place]) Address [address] [place] [address] Care Team Providers Care Field Gauger Name Role Phone Jay Howell MD Primary Care Provider [phone] Encounter Details Date Type Department Care Team (Late st Contact Info) Description 12/12/2018 Transcribed Document [facility] [place] [address] [place] [address] ProviderJessie MD [address] [place], [place] [address] Social History Tobacco Use Types Packs/Day Years Used Date Smoking Tobacco: Never Assessed Comments Unknown Sex and Gender Information Value Date Recorded Sex Assigned at Not on file Legal Sex Female 7:30 PM CDT Gender Identity Not on file Sexual Orientation Not on file documented as of this encounter Miscellaneous Notes * Cerner Conversion Note - Jessie ProviderMD - 12/12/2018 10:41 PM APPLICATION DEVELOPMENT LIAISON [address] [place] [address] Patient Information Name: SKYLER MONTOYA [...] please contact the Patient Resource Center at [phone]. With: Address: When: Follow-up with your pathology assistant in the morning. Return to the closest emergency department for any acute new concerns or recurrence of symptoms. Within in AM With: Address: When: TARA CHEN [address] [place] [address] [address] [place], [place] [address] [facility] (1) Within 2 to 3 days Patient [...] physical activity. It especially occurs in the ice cream man hours. What are the causes? Atherosclerosis is [...] 10/03/2006 Document Revised: 03/16/2017 Document Reviewed: 02/04/2015 [employer] Patient Education ? 2017 [employer] Allergies: Macrodantin; morphine; nitrofurantoin Medication Information: [...] range between ( 0.0 and 7.0 ) [place] #: 0.65 K/uL -- Normal range between ( 0.16 and 1.00 ) Eos #: 0.00 x10(3)/uL -- Normal range between ( 0.00 and 0.80 ) [place] %: 10.7 % -- Normal range between [...] verify that SKYLER MONTOYA was seen at [facility] Emergency Department on ,12/12/2018 22:41:24. This is [...] along the way. As a healthcare provider, [facility] recommends that you stop smoking. Assistance with quitting is available by contacting 9-097-VAPL-NOW. This is a free resource providing counseling, [...] Electronic Communications Privacy Act 18 U.S.C. ???Sections 3773-1607,?? and contain information intended for the specified [...] Be sure to sign up for the [facility] patient portal, which gives you 09/05 access to your medical information ??? including these discharge instructions ??? using your computer, smartphone, or tablet. Just go to [employer] to get started. Questions? Call . Acknowledgment [...] Instructions: Emergency Physician: Electronically signed by Sivan, [facility] Conversion Service And Repair Supervisor Cerner at 02/04/2023 1:56 PM CDT documented in this encounter Plan of Treatment Not on file documented as of this encounter Visit Diagnoses Not on filedocumented in this encounter Care Teams Field Gauger Relationship Specialty Start Date End Date Jay Howell MD [address] [place] [phone] PCP - General Emergency Medicine 11/12/23 documented as of this encounter
--- OUTSIDE RECORDS SUMMARY | 2025-07-22 07:51 | XMS_ITS | Encounter Summary ---
Author Organization [employer] ([place], [place], [place], [place]) Address [address] [place] [address] Care Team Providers Care Silo Painter Name Role Phone Jay Howell MD Primary Care Provider [phone] Encounter Details Date Type Department Care Team (Late st Contact Info) Description 12/12/2018 Transcribed Document [facility] [place] [address] [place] [address] ProviderJessie MD [address] [place], [place] [address] Social History Tobacco Use Types Packs/Day Years Used Date Smoking Tobacco: Never Assessed Comments Unknown Sex and Gender Information Value Date Recorded Sex Assigned at Not on file Legal Sex Female 7:30 PM CDT Gender Identity Not on file Sexual Orientation Not on file documented as of this encounter Miscellaneous Notes * Cerner Conversion Note - Historical ProviderMD - 12/12/2018 10:20 PM MANUFACTURING PROCESS TECHNICIAN Electronically signed by [facility], [facility] Conversion Rac Specialist Cerner at 02/04/2023 1:59 PM CDT documented in this encounter Plan of Treatment Not on file documented as of this encounter Visit Diagnoses Not on filedocumented in this encounter Care Teams Silo Painter Relationship Specialty Start Date End Date Jay Howell MD [address] [place] [phone] PCP - General Emergency Medicine 11/12/23 documented as of this encounter
--- OUTSIDE RECORDS SUMMARY | 2025-07-22 07:51 | XMS_ITS | Encounter Summary ---
Author Organization [employer] ([place], [place], [place], [place]) Address [address] [place] [address] Care Team Providers Care Drum Carrier Name Role Phone Jay Howell MD Primary Care Provider [phone] Encounter Details Date Type Department Care Team (Late st Contact Info) Description 07/18/2021 Transcribed Document [facility] [place] [address] [place] [address] ProviderJessie MD [address] [place], [place] [address] Social History Tobacco Use Types Packs/Day Years [...] filedocumented in this encounter Care Teams Drum Carrier Relationship Specialty Start Date End Date Jay Howell MD [address] [place] [phone] PCP - General Emergency Medicine 11/12/23 documented as of this encounter
--- OUTSIDE RECORDS SUMMARY | 2025-07-22 07:51 | XMS_ITS | Encounter Summary ---
Author Organization [facility] Address [address] [place] [address] Care Team Providers Care Floral Designer Salesperson Name Role Phone Jay Howell MD Primary Care Provider [phone] Reason for Visit * Reason Onset Date Comments DR. DUMAS - SCHEDULING REQUEST 07/02/2025 Encounter Details Date Type Department Care Team (Late st Contact Info) Description 07/02/[address] [facility] [address] [place] [phone] Judie Dumas MD [address] [place] [address] DR. 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 PATIENT WOULD LIKE TO BE SEEN PA[place]LETTE AND CAN SEND ANY RELEVANT RECORDS FROM CARE WHILE SHE WAS AWAY. documented in this encounter Plan of Treatment Not on file documented as of this encounter Visit Diagnoses Not on filedocumented in this encounter Care Teams Floral Designer Salesperson Relationship Specialty Start Date End Date Jay Howell MD [address] [place] [address] PCP - General Emergency Medicine 04/28/23 documented as of this encounter
--- OUTSIDE RECORDS SUMMARY | 2025-07-22 07:51 | XMS_ITS | Encounter Summary ---
Author Organization [employer] ([place], [place], [place], [place]) Address [address] [place] [address] Care Team Providers Care Loan Interviewer Name Role Phone Jay Howell MD Primary Care Provider [phone] Encounter Details Date Type Department Care Team (Late st Contact Info) Description 08/27/2020 Transcribed Document [facility] [place] [address] [place] [address] ProviderJessie MD [address] [place] [address] Social History Tobacco Use Types Packs/Day Years Used Date Smoking Tobacco: Never Assessed Comments Unknown Sex and Gender Information Value Date Recorded Sex Assigned at Not on file Legal Sex Female 7:30 PM CDT Gender Identity Not on file Sexual Orientation Not on file documented as of this encounter Miscellaneous Notes * Cerner Conversion Note - Jessie Yuen MD - 08/27/2020 9:53 AM ENGAGEMENT MANAGER WOCN Inpatient Documentation Entered On: 09/01/2020 16:35 [...] Ulcer WOCN Wound Pressure Ulcer Documentation : Pjlyuwisy-Porfjh-Kcud Abnormality: Leg Left Lower, Anterior on 09/01/2020 13:00 by HOLDEN HESS RN I/W/A Present on Admission to Hospital: No I/W/A Type: Hematoma I/W/A Dressing Status: Clean, Dry, Intact I/W/A Wound Date of Dressing Change: 1:[id number]:0.903490:0:0 I/W/A Wound Bed Description: Full-thickness, Granulating I/W/A [...] - 09/01/2020 16:32 EST Electronically signed by [facility] Conversion Roofer Helper Vinyl Coating Cerner at 02/04/2023 2:18 PM CDT documented in this encounter Plan of Treatment Not on file documented as of this encounter Visit Diagnoses Not on filedocumented in this encounter Care Teams Loan Interviewer Relationship Specialty Start Date End Date Jay Howell MD [address] [place] [phone] PCP - General Emergency Medicine 11/12/23 documented as of this encounter
--- OUTSIDE RECORDS SUMMARY | 2025-07-22 07:51 | XMS_ITS | Clinical Summary ---
Author Organization [facility] [place] [address] Care Team Providers Care Ocular Care Technician Name Role Phone Jay Howell MD [...] contusion - Repeat CTH 0500 pending - [facility] elevated - Na goal 140-145 - [...] repeat falls Continue outpatient follow-up with established clinical allergist; consider closer follow up with continued weakness/repeat falls. 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 She has denied any chest pain. Her last heart catheterization was November 25, 2022 at [facility] in [place] showing: -last C 11/25/2022- A. CAD s/p [...] of chest/PE protocol. Patient was sent to [facility] radiology department for CT scan today. - [...] Encounters Date Type Department Care Team Description 07/16/2025 Telephone [facility] Urology [address] [place] [phone] Kimmie Cabrera 07/09/2025 Telephone [facility] Urology [address] [place] [phone] Kimmie Cabrera 07/02/2025 Telephone [facility] Urology [address] [place] [phone] Returned Call 05/27/2025 Telephone [facility] [address] [place] [phone] Mitraneurology, Physician, 05/13/2025 Telephone [facility] [address] [place] [phone] Mitraneurology, Physician, from Last 3 Months Immunizations [...] Used Date Smoking Tobacco: Former Cigarettes 1 1991 Passive Smoke Exposure: Past Smokeless Tobacco: [...] place to sleep or slept in a correction (including now)? No 08/06/2024 CAGE ASSESSMENT Answer [...] drink first t kathleen in the morning (EYE-VENTILATOR SPECIALIST) to steady your nerves or to get rid of a hangover? 0 03/20/2024 CAGE Questionnaire Score 0 024 Utilities Answer Date Recorded In the past 12 months has th [employer], gas, oil, or water company threatened to [...] Last Done Comments [facility]-Bone Density Scan 1940 [facility]-Medicare Annual Wellness (AWV) 1940 [facility]-Infant/Child/Adol SDOH Screenings 1940 Diabetes: Dental Exam 12/23/1949 [facility]-Hepatitis A Vaccines (1 of 2 - Risk 2-dose series) 12/23/1958 [facility]-Zoster Vaccines (1 of 2) 12/23/1958 [facility]-RSV Vaccine: 60+ Years or (1 - 1-dose 75+ series) 12/23/2014 [facility]-Diabetes: Hemoglobin A1C 09/17/2024 03/20/2024, 01/20/2024 [facility]- SDOH Screenings 02/04/2025 [facility]-Adult SDOH Screenings 02/04/2025 08/06/2024 [facility]-Depression Screening 04/03/2025 04/03/2024 [id number]-FKLGW-07 Vaccine ( - 2024- season) 2025 12/09/2021, 02/17/2021, 01/27/2021 [facility]-Influenza Vaccine [...] this topic Medical Devices Implanted Type Area Ad Compositor Device Identifier Shelf Expiration Date Model / Serial / Lot Nail 10s Intertan 10mm X 36cm 130d Left - [id number] Implanted:Qty: 1 on 03/20/2024 by Haroldo Braden MD at [facility] Nail Left: Femur [employer]-[id number] 08/04/2033 [id number] / / [id number] Nail Tibial [id number] - [id number] Implanted:Qty: 1 on 08/06/2024 by Haroldo Braden MD at [facility] Nail Right: Tibia [employer] ([employer])-[id number] 09/15/2033 [id number] / / [id number] Lag/Comp Screw Kit 90/85 - [id number] Implanted:Qty: 1 on 03/20/2024 by Haroldo Braden MD at [facility] Screw Left: Femur [employer]-[id number] 09/26/2033 [id number] / / [id number] Screw Trigen 5.0mm For Metanail 37.5mm - [id number] Implanted:Qty: 1 on 03/20/2024 by Haroldo Braden MD at [facility] Screw Left: Femur [employer]-[id number] 08/19/2033 [id number] / / [id number] Screw Locking Adv T2 T2 D5xl60 - [id number] Implanted:Qty: 1 on 08/06/2024 by Haroldo Braden MD at [facility] Screw Right: Tibia [employer] ([facility][id number] 05/16/2034 [id number] / / [id number] Screw Locking Adv T2 T2 D5xl50 - [id number] Implanted:Qty: 1 on 08/06/2024 by Haroldo Braden MD at [facility] Screw Right: Tibia [employer] ([facility][id number] 01/14/2034 2361-5050S / / [id number] Screw Locking T2 D5xl42.5 - [id number] Implanted:Qty: 1 on 08/06/2024 by Haroldo Braden MD at [facility] Screw Right: [employer]ia [employer] ([facility][id number] 05/16/2034 2360-5042S / / [id number] Screw Locking T2 D5x35 - [id number] Implanted:Qty: 1 on 08/06/2024 by Haroldo Braden MD at [facility] Screw Right: [employer]ia [employer] ([facility][id number] 05/16/2034 [id number] / / [id number] Procedures Procedure Name Priority Date/Time Associated Diagnosis [...] Adults <6.0% Children and Adolescents <7.5% Source: [place] [employer]. Standards of medical care in diabetes,2017. Diabetes Care.2017:40 (suppl 1):S1-S135. HbA1c assay performed by an ion-exchange chromatography method that is certified traceable to the DCCT. Gerhard Zazueta MD LAB BLOOD ORDERABLES Final Resu lt [facility] [address] [place] [address] from Last 3 Months or Most Recently Relevant to Health Maintenance Insurance MEDICARE Advance Directives Documents on File Type Date Recorded Patient Seaman Expl anation Advance Directives and Livin g [...] Patient has decision-making capacity? Yes Care Teams Ocular Care Technician Relationship Specialty Start Date End Date Jay Howell MD [address] [place], [place] [address] PCP - General 03/08/21
--- OUTSIDE RECORDS SUMMARY | 2025-07-22 07:51 | XMS_ITS | Encounter Summary ---
Author Organization [employer] ([place], [place], [place], [place]) Address [address] [place] [address] Care Team Providers Care Table Keeper Name Role Phone Jay Howell MD Primary Care Provider [phone] Encounter Details Date Type Department Care Team (Late st Contact Info) Description 07/18/2021 Transcribed Document [facility] [place] [address] [place] [address] ProviderJessie MD [address] [place], [place] [phone] Social History Tobacco Use Types Packs/Day Years [...] Yuen MD - 07/18/2021 8:22 PM CDT [facility] [place] [address] SKYLER MONTOYA :1940 Visit Time:07/18/2021 Your Visit [...] different. Where: [address] [place], [place] [address]- [phone] (1) Allergies Macrodantin morphine (rash, rash) [...] range between ( 0.0 and 7.0 ) [place] #: 0.50 K/uL -- Normal range between ( 0.16 and 1.00 ) Eos #: 0.00 x10(3)/uL -- Normal range between ( 0.00 and 0.80 ) [place] %: 10.4 % -- Normal range between [...] these instructions at home: Medicines ??? Take lsjp-ejr-jgolpnv and prescription medicines only as told by [...] provider. Document Revised: 04/05/2019 Document Reviewed: 04/05/2019 [employer] Patient Education ?? 2020 ooma. Emergency Awareness and Preventative Care STROKE is [...] Assistance with quitting is available by contacting 9-827-QDFL-NOW. This is a free resource providing counseling, [...] given the opportunity to ask questions. Patient/Transport Specialist Name: Patient/Transport Specialist Signature: Relationship to Patient: Clinician/Hospital Transport Specialist Signature: Please Provide a Telephone Number Where You Can Be Reached: Is it Permissible To Leave a Message? Date: documented in this encounter Plan of Treatment Not on file documented as of this encounter Visit Diagnoses Not on filedocumented in this encounter Care Teams Table Keeper Relationship Specialty Start Date End Date Jay Howell MD [address] [place] [phone] PCP - General Emergency Medicine 11/12/23 documented as of this encounter
--- OUTSIDE RECORDS SUMMARY | 2025-07-22 07:51 | XMS_ITS | Encounter Summary ---
Author Organization [employer] ([place], [place], [place], [place]) Address [address] [place] [address] Care Team Providers Care Physician Practice Coordinator Name Role Phone Jay Howell MD Primary Care Provider [phone] Encounter Details Date Type Department Care Team (Late st Contact Info) Description 03/19/2021 Transcribed Document [facility] [place] [address] [place] [address] ProviderJessie MD [address] [place], [place] [address] Social History Tobacco Use Types Packs/Day Years [...] filedocumented in this encounter Care Teams Physician Practice Coordinator Relationship Specialty Start Date End Date Jay Howell MD [address] [place] [phone] PCP - General Emergency Medicine 11/12/23 documented as of this encounter
--- OUTSIDE RECORDS SUMMARY | 2025-07-22 07:51 | XMS_ITS | Encounter Summary ---
Author Organization [employer] ([place], [place], [place], [place]) Address [address] [place] [address] Care Team Providers Care Wheat And Oats Flake Miller Name Role Phone Jay Howell MD Primary Care Provider [phone] Encounter Details Date Type Department Care Team (Late st Contact Info) Description 08/27/2020 Transcribed Document [facility] [place] [address] [place] [address] ProviderJessie MD [address] [place] [address] Social History Tobacco Use Types Packs/Day Years Used Date Smoking Tobacco: Never Assessed Comments Unknown Sex and Gender Information Value Date Recorded Sex Assigned at Not on file Legal Sex Female 7:30 PM CDT Gender Identity Not on file Sexual Orientation Not on file documented as of this encounter Miscellaneous Notes * Cerner Conversion Note - Historical ProviderMD - 08/27/2020 2:40 PM ACADEMIC SUPPORT ASSISTANT WOCN Inpatient Documentation Entered On: 08/27/2020 14:42 [...] Past Medical History/Comorbidities : *Operation 08/26 RIGHT CARTON MACHINE OPERATOR access - ultrasound guided Aortogram with LEFT lower extremity run-off LEFT PT angioplasty (2.5-1x315ci Nan[employer]ross) LEFT peroneal angioplasty (2.5-8s811ke Nanocross) RIGHT CARTON MACHINE OPERATOR closure (Angioseal) LEFT leg debridement WOCN Assessment [...] Ulcer WOCN Wound Pressure Ulcer Documentation : Dzzoghdpo-Luaext-Mtin Abnormality: Leg Left Lower, Anterior on 08/27/2020 14:38 by Sujata Mckee Rn-Enterostomal I/W/A Present on Admission to Hospital: Yes I/W/A Type: Other: a/p debridement I/W/A Dressing Status: Moist I/W/A Dressing Activity: Assessed, Dressing changed I/W/A Wound Date of Dressing Change: :[id number]:0.662500:0:0 I/W/A Wound Bed Description: Full-thickness I/W/A Bed [...] Initial set-up application NPWT Inpatient Start Date: :[id number]:0.682238:0:0 NPWT Device Used: Renasys Type of Foam/Gauze Applied: Black Foam Number of Black Foam Gauze Applied: 1 Number of TRAC Pads Applied: 1 NPWT Pressure: Continuous NPWT Pressure Settin NPWT Canister Changed: Yes I/W/A Incision/Wound Healing: Initial WOCN Ostomy Documentation : No ostomy assessments reported. Sujata Mckee Rn-Enterostomal - 08/27/2020 14:40 EST Electronically signed by Sivan [facility] Conversion Enforcement Manager Cerner at 02/04/2023 1:56 PM CDT documented in this encounter Plan of Treatment Not on file documented as of this encounter Visit Diagnoses Not on filedocumented in this encounter Care Teams Wheat And Oats Flake Miller Relationship Specialty Start Date End Date Jay Howell MD [address] [place] [phone] PCP - General Emergency Medicine 11/12/23 documented as of this encounter
--- OUTSIDE RECORDS SUMMARY | 2025-07-22 07:51 | XMS_ITS | Encounter Summary ---
Author Organization [employer] ([place], [place], [place], [place]) Address [address] [place] [address] Care Team Providers Care Color Shop Helper Name Role Phone Jay Howell MD Primary Care Provider [phone] Encounter Details Date Type Department Care Team (Late st Contact Info) Description 08/27/2020 Transcribed Document [facility] [place] [address] [place] [address] ProviderJessie MD [address] [place] [address] Social History Tobacco Use Types Packs/Day Years Used Date Smoking Tobacco: Never Assessed Comments Unknown Sex and Gender Information Value Date Recorded Sex Assigned at Not on file Legal Sex Female 7:30 PM CDT Gender Identity Not on file Sexual Orientation Not on file documented as of this encounter Miscellaneous Notes * Cerner Conversion Note - Historical ProviderMD - 08/27/2020 2:00 AM RESEARCH ASSOCIATE POLICY Optical Element Coater Details Entered On: 08/27/2020 1:36 EST Performed [...] 08/27/2020 1:36 EST Electronically signed by Sivan [facility] Conversion Warehouse Administrator Cerner at 02/04/2023 2:19 PM CDT documented in this encounter Plan of Treatment Not on file documented as of this encounter Visit Diagnoses Not on filedocumented in this encounter Care Teams Color Shop Helper Relationship Specialty Start Date End Date Jay Howell MD [address] [place] [phone] PCP - General Emergency Medicine 11/12/23 documented as of this encounter
--- OUTSIDE RECORDS SUMMARY | 2025-07-22 07:51 | XMS_ITS | Encounter Summary ---
Author Organization [employer] ([place], [place], [place], [place]) Address [address] [place] [address] Care Team Providers Care Meter Tester Name Role Phone Jay Howell MD Primary Care Provider [phone] Encounter Details Date Type Department Care Team (Late st Contact Info) Description 07/18/2021 Transcribed Document [facility] [place] Medicine [address] [place] [address] ProviderJessie MD [address] [place] [id number] Social History Tobacco Use Types Packs/Day Years [...] on filedocumented in this encounter Care Teams Meter Tester Relationship Specialty Start Date End Date Jay Howell MD [address] [place] [phone] PCP - General Emergency Medicine 11/12/23 documented as of this encounter
--- OUTSIDE RECORDS SUMMARY | 2025-07-22 07:51 | XMS_ITS | Encounter Summary ---
Author Organization [employer] ([place], [place], [place], [place]) Address [address] [place] [address] Care Team Providers Care Diversity Intern Name Role Phone Jay Howell MD Primary Care Provider [phone] Encounter Details Date Type Department Care Team (Late st Contact Info) Description 08/27/2020 Transcribed Document [facility] [place] Medicine [address] [place] [address] ProviderJessie MD [address] [place] [address] Social History Tobacco Use Types Packs/Day Years Used Date Smoking Tobacco: Never Assessed Comments Unknown Sex and Gender Information Value Date Recorded Sex Assigned at Not on file Legal Sex Female 7:30 PM CDT Gender Identity Not on file Sexual Orientation Not on file documented as of this encounter Miscellaneous Notes * Cerner Conversion Note - Historical ProviderMD - 08/27/2020 3:14 PM FOLLOW UP MANAGER Consult Phone Call Documentation Entered On: 08/27/2020 15:23 EST Performed On: 08/27/2020 15:14 EST by JOANN DELGADILLO Phone Call for Consults Consult Phone Call/Page Attempt : First call JOANN DELGADILLO - 08/27/2020 15:23 EST Electronically signed by Sivan [facility] Conversion Legal Administrator Cerner at 02/04/2023 1:59 PM CDT documented in this encounter Plan of Treatment Not on file documented as of this encounter Visit Diagnoses Not on filedocumented in this encounter Care Teams Diversity Intern Relationship Specialty Start Date End Date Jay Howell MD [address] [place] [phone] PCP - General Emergency Medicine 11/12/23 documented as of this encounter
--- OUTSIDE RECORDS SUMMARY | 2025-07-22 07:51 | XMS_ITS | Encounter Summary ---
Author Organization [employer] ([place], [place], [place], [place]) Address [address] [place] [address] Care Team Providers Care Supervisor Parking Lot Name Role Phone Jay Howell MD Primary Care Provider [phone] Encounter Details Date Type Department Care Team (Late st Contact Info) Description 03/19/2021 Transcribed Document [facility] [place] [address] [place] [address] ProviderJessie MD [address] [place] [phone] Social History Tobacco Use Types Packs/Day Years [...] 2. Calcification of the vertebral origins with iqgs-om-ahomiils stenosis. 3. Extensive vascular calcification. 4. Severe [...] up with hand surgery next week, her death claim examiner in 2-4 weeks and neurologist 4-8 weeks. [...] [facility]er or [facility] on March 23 or [facility] - Within 6 weeks Discharge Medications (14) [...] 03/17/21 10:56:00 EDT, Cardiac Diet, 60 gm carbs:[id number] george, Isolation: Standard Precautions, Instructions: Diabetic Diet Patient Discharge Summary Orders Discharge Follow Up Instructions: Follow Up Instructions: f/u Dr. Comer or Anabell ( Hand Surgery) on d/c. [phone] Activity: Discharge Activity: Activity as tolerated Diet: [...] filedocumented in this encounter Care Teams Supervisor Parking Lot Relationship Specialty Start Date End Date Jay Howell MD [address] [place] [phone] PCP - General Emergency Medicine 11/12/23 documented as of this encounter
--- OUTSIDE RECORDS SUMMARY | 2025-07-22 07:51 | XMS_ITS | Encounter Summary ---
Author Organization [employer] ([place], [place], [place], [place]) Address [address] [place] [address] Care Team Providers Care Brokerage Branch Manager Name Role Phone Jay Howell MD Primary Care Provider [phone] Encounter Details Date Type Department Care Team (Late st Contact Info) Description 12/12/2018 Transcribed Document [facility] [place] [address] [place] [address] ProviderJessie MD [address] [place] [address] Social History Tobacco Use Types Packs/Day Years Used Date Smoking Tobacco: Never Assessed Comments Unknown Sex and Gender Information Value Date Recorded Sex Assigned at Not on file Legal Sex Female 7:30 PM CDT Gender Identity Not on file Sexual Orientation Not on file documented as of this encounter Miscellaneous Notes * Cerner Conversion Note - Historical ProviderMD - 12/12/2018 9:44 PM AGENTS' RECORDS CLERK Patient: SKYLER MONTOYA Age: 77 years Sex: [...] L arm. reports seen bt card in [place] for same earlier this week, reports she [...] and was advised to follow-up with her lacing cutter. She had labs done this morning, but [...] wants to go home and see her lacing cutter tomorrow. Review of Systems Additional review of [...] normal sinus rhythm, No ST changes, normal CA & QRS intervals, EP Interp. Results review: [...] % 36.4 % Lymph # 2.22 x10(3)/uL Potter % 10.7 % HI Potter # 0.65 K/uL Eos % 0.0 % [...] evaluation at any time. Advised follow-up with lacing cutter in the morning and return to the closest ER for any recurrence or worsening of symptoms.. Impression and Plan Diagnosis Chest pain - Discharge, Medical Plan Condition: Stable. Patient was given the following educational materials: Angina Pectoris. Follow up with: [facility] Within 2 to 3 days; Follow-up with your lacing cutter in the morning. Return to the closest emergency department for any acute new concerns or recurrence of symptoms. Within in AM. Counseled: Patient, Family, Regarding diagnosis, Regarding diagnostic results, Regarding treatment plan, Patient indicated understanding of instructions. documented in this encounter Plan of Treatment Not on file documented as of this encounter Visit Diagnoses Not on filedocumented in this encounter Care Teams Brokerage Branch Manager Relationship Specialty Start Date End Date Jay Howell MD [address] [place] [phone] PCP - General Emergency Medicine 11/12/23 documented as of this encounter
--- OUTSIDE RECORDS SUMMARY | 2025-07-22 07:51 | XMS_ITS | Encounter Summary ---
Author Organization [employer] ([place], [place], [place], [place]) Address [address] [place] [address] Care Team Providers Care Director Process Engineering Name Role Phone Jay Howell MD Primary Care Provider [phone] Encounter Details Date Type Department Care Team (Late st Contact Info) Description 07/18/2021 Transcribed Document [facility] [place] [facility] [place] [address] ProviderJessie MD [address] [place], [place] [address] Social History Tobacco Use Types Packs/Day Years [...] Communication Barrier : None Primary Language : Citizen Of [place] Any Spiritual/Cultural Needs or Requests : No [...] (Last Updated: 11/23/2016 13:03:39 EST by DAVIDA ISACA RN) Alcohol: Use in Last 12 Months: [...] filedocumented in this encounter Care Teams Director Process Engineering Relationship Specialty Start Date End Date Jay Howell MD [address] [place] [phone] PCP - General Emergency Medicine 11/12/23 documented as of this encounter
--- OUTSIDE RECORDS SUMMARY | 2025-07-22 07:51 | XMS_ITS | Encounter Summary ---
Author Organization [employer] ([place], [place], [place], [place]) Address [address] [place] [address] Care Team Providers Care Automobile Taillight Assembler Name Role Phone Jay Howell MD Primary Care Provider [phone] Encounter Details Date Type Department Care Team (Late st Contact Info) Description 08/27/2020 Transcribed Document [facility] [place] Family Medicine [address] [place] [address] ProviderJessie MD [address] [place] [address] Social History Tobacco Use Types Packs/Day Years Used Date Smoking Tobacco: Never Assessed Comments Unknown Sex and Gender Information Value Date Recorded Sex Assigned at Not on file Legal Sex Female 7:30 PM CDT Gender Identity Not on file Sexual Orientation Not on file documented as of this encounter Miscellaneous Notes * Cerner Conversion Note - Historical ProviderMD - 08/27/2020 3:14 PM COAL CONVEYOR OPERATOR Evaluation, Occupational Therapy Entered On: 08/29/2020 13:30 [...] Occupational Therapy : Verbalizes understanding ANAY BOCANEGRA [facility]ER[facility] - 08/29/2020 13:19 EST Teaching/Learning Assessment [...] BOCANEGRA STUDENTOCCUPATIONAL THERAPIST - 08/29/2020 13:40 EST Lining Closer Goals, OT Grooming LTG Grid Goal #1 [...] BOCANEGRA STUDENT-OCCUPATIONAL THERAPIST - 08/29/2020 13:40 EST [place] OT Charges OT Eval Moderate Complexity : 1 ANAY BOCANEGRA STUDENT-OCCUPATIONAL THERAPIST - 08/29/2020 13:19 EST documented in this encounter Plan of Treatment Not on file documented as of this encounter Visit Diagnoses Not on filedocumented in this encounter Care Teams Automobile Taillight Assembler Relationship Specialty Start Date End Date Jay Howell MD [address] [place] [phone] PCP - General Emergency Medicine 11/12/23 documented as of this encounter
--- OUTSIDE RECORDS SUMMARY | 2025-07-22 07:51 | XMS_ITS | Encounter Summary ---
Author Organization [employer] ([place], [place], [place], [place]) Address [address] [place] [address] Care Team Providers Care Engine Lathe Tender Name Role Phone Jay Howell MD Primary Care Provider [phone] Encounter Details Date Type Department Care Team (Late st Contact Info) Description 12/12/2018 Transcribed Document [facility] [place] [address] [place] [address] ProviderJessie MD [address] [place] [address] Social History Tobacco Use Types Packs/Day Years Used Date Smoking Tobacco: Never Assessed Comments Unknown Sex and Gender Information Value Date Recorded Sex Assigned at Not on file Legal Sex Female 7:30 PM CDT Gender Identity Not on file Sexual Orientation Not on file documented as of this encounter Miscellaneous Notes * Cerner Conversion Note - Jessie Yuen MD - 12/12/2018 8:58 PM MEDICAL APPARATUS MODEL MAKER ED Assessment Entered On: 12/12/2018 21:53 EST [...] Communication Barrier : None Primary Language : Senegalese Additional Emergency Contact #1 : Johnny Montoya Additional Contact #1 Phone Number : [phone] Additional Contact #1 Relationship : spouse Any [...] Rhythm : Regular Nail Bed Color : Coward Chest Pain : Yes Neck Vein Distention [...] 12/12/2018 21:49 EST Electronically signed by Interface, [facility] Conversion Advertising Operations Coordinator Cerner at 02/04/2023 2:13 PM CDT documented in this encounter Plan of Treatment Not on file documented as of this encounter Visit Diagnoses Not on filedocumented in this encounter Care Teams Engine Lathe Tender Relationship Specialty Start Date End Date Jay Howell MD [address] [place] [phone] PCP - General Emergency Medicine 11/12/23 documented as of this encounter
--- OUTSIDE RECORDS SUMMARY | 2025-07-22 07:51 | XMS_ITS | Encounter Summary ---
Author Organization [employer] ([place], [place], [place], [place]) Address [address] [place] [address] Care Team Providers Care Interactive Media Marketing Specialist Name Role Phone Jay Howell MD Primary Care Provider [phone] Encounter Details Date Type Department Care Team (Late st Contact Info) Description 08/27/2020 Transcribed Document [facility] [place] [address] [place] [address] ProviderJessie MD [address] [place], [place] [address] Social History Tobacco Use Types Packs/Day Years Used Date Smoking Tobacco: Never Assessed Comments Unknown Sex and Gender Information Value Date Recorded Sex Assigned at Not on file Legal Sex Female 7:30 PM CDT Gender Identity Not on file Sexual Orientation Not on file documented as of this encounter Miscellaneous Notes * Cerner Conversion Note - Historical ProviderMD - 08/27/2020 3:14 PM MANAGER INTENSIVE CARE UNIT Evaluation, Physical Therapy Entered On: 08/29/2020 12:09 EST Performed On: 08/29/2020 10:38 EST by ERIC OH, PT General Information, PT Therapy Diagnosis, PT : assessment for need for skilled PTx --- NONE at this time Onset of Problem, PT : 08/27/2020 EST Co-treated by, PT : Other: OTx Student General Information Comment, PT : 79 yo female adm to [facility] 08/25 with L LE Hematoma and Cellulitis HAD SURGERY 08/26 for ARTERIOGRAM with L LE DEBRIDEMENT with WOUND VAC PLACEMENT pt had had a fall at home, seen in ED twice with pain/redness reid prior to full admission PMHx significant for CAD (CABG/STENTS), COPD, DM, HTN, HLD, Remote hx of Femur fx with SIMONA ERIC HO, PT - 08/29/2020 13:14 EST Visit Type, [...] : Leg, left Onset : Constant ALTHEA ERIC, PT - 08/29/2020 13:14 EST Image 1 - Images currently included in the form version of this document have not been included in the text rendition version of the form. Anticipated Discharge Needs, OT/PT Anticipated Discharge to : Home, with family care Anticipated Home Equipment : None Recommend Continued Therapy at Discharge : No ALTHEA ERIC, PT - 08/29/2020 13:14 EST [place] PT Charges PT Eval Low Complexity : 1 ALTHEA ERIC, PT - 08/29/2020 13:14 EST documented in this encounter Plan of Treatment Not on file documented as of this encounter Visit Diagnoses Not on filedocumented in this encounter Care Teams Interactive Media Marketing Specialist Relationship Specialty Start Date End Date Jay Howell MD [address] [place] [phone] PCP - General Emergency Medicine 11/12/23 documented as of this encounter
--- OUTSIDE RECORDS SUMMARY | 2025-07-22 07:51 | XMS_ITS | Encounter Summary ---
Author Organization [employer] ([place], [place], [place], [place]) Address [address] [place] [address] Care Team Providers Care Staff Developer Name Role Phone Jay Hwoell MD Primary Care Provider [phone] Encounter Details Date Type Department Care Team (Late st Contact Info) Description 08/28/2020 Transcribed Document [facility] [place] Family Medicine [address] [place] [address] ProviderJessie MD [address] [place] [address] Social History Tobacco Use Types Packs/Day Years Used Date Smoking Tobacco: Never Assessed Comments Unknown Sex and Gender Information Value Date Recorded Sex Assigned at Not on file Legal Sex Female 7:30 PM CDT Gender Identity Not on file Sexual Orientation Not on file documented as of this encounter Miscellaneous Notes * Cerner Conversion Note - Historical MD Alpa - 08/28/2020 9:30 AM VAULT MECHANIC Overhauler Bus Truck Inpatient Document Entered On: 08/28/2020 11:43 EST Performed On: 08/28/2020 11:40 EST by KARRIE FERNANDES Rn-Educator Diabetes Overhauler Bus Truck Inpatient Document Reason for Overhauler Bus Truck Visit : Physician order Endocrine/Metabolic History : [...] FERNANDES Rn-Educator Diabetes - 08/28/2020 11:40 EST Electronically signed by Sivan [facility] Conversion Miniature Set Designer Cerner at 02/04/2023 2:21 PM CDT documented in this encounter Plan of Treatment Not on file documented as of this encounter Visit Diagnoses Not on filedocumented in this encounter Care Teams Staff Developer Relationship Specialty Start Date End Date Jay Howell MD [address] [place] [phone] PCP - General Emergency Medicine 11/12/23 documented as of this encounter
--- OUTSIDE RECORDS SUMMARY | 2025-07-22 07:51 | XMS_ITS | Encounter Summary ---
Author Organization [employer] ([place], [place], [place], [place]) Address [address] [place] [address] Care Team Providers Care Forestry Farm Laborer Name Role Phone Jay Howell MD Primary Care Provider [phone] Encounter Details Date Type Department Care Team (Late st Contact Info) Description 07/18/2021 Transcribed Document [facility] [place] [address] [place] [address] ProviderJessie MD [address] [place] [address] Social History Tobacco Use Types Packs/Day Years [...] 06/13/2020 8:52 EVA LAWS RN PCI w/ Columbia stent to D1 Coronary artery bypass graft ([id number]) in 1992 at 52 Years. femur repair. Appendectomy (543205477). uterine suspension. Hysterectomy ([id number]). back surgury. Cholecystectomy ([id number]). Hip replacement ([id number]). cataract surgury.. Family history: Cardiomyopathy Child Stroke [...] EDT Height Source Stated Height Entry Format [place] Height/Length, BELARUSIAN (ft) 5 ft Height/Length BELARUSIAN 3 Inch CLINICALHEIGHT 160.02 cm [place] Body Weight 52.02 kg Weight Source, ED Critical estimated dosing weight Weight Entry Format [place] Weight Panamanian lb 154 lb CLINICALWEIGHT 70 kg Body [...] C-SSRS: ED Clinical Reconciliation: ED Isolation: ED cigar packer: Lipase Level: PT/INR Prothrombin Time: PTT: ProBNP: Saline Lock Insert: Troponin I Ultra: Troponin I Ultra: aspirin: 324 mg, Chew, 1-Time iopamidol: 75 mL, IV Push, ADHOC. Electrocardiogram: Time 07/18/2021 15:21:00, rate 57, normal sinus rhythm, No ST changes, no ectopy, normal IN & QRS intervals, EP Interp. Electrocardiogram: Time 07/18/2021 19:13:00, rate 53, normal sinus rhythm, No ST changes, no ectopy, normal IN & QRS intervals, EP Interp. telemetry monitor: Normal sinus rhythm. Results review: All Results [...] % 30.3 % Lymph # 1.46 x10(3)/uL [place] % 10.4 % HI [place] # 0.50 K/uL Eos % 0.0 % Eos # 0.00 x10(3)/uL Baso % 0.4 % Baso # 0.02 x10(3)/uL Slide Review No IG# 0.03 x10(3)/uL IG% 0.60 % PT 39.6 Second(s) HI INR 4.1 HI PTT 44.9 Second(s) HI . Radiology results: Radiology Results (Last 48 hours) [id number] -- 07/18/2021 15:00 CR Chest 1 Vw [...] of instructions. Notes: I certify that the MLP/COOKIE BREAKER performed the services as delegated. . documented in this encounter Plan of Treatment Not on file documented as of this encounter Visit Diagnoses Not on filedocumented in this encounter Care Teams Forestry Farm Laborer Relationship Specialty Start Date End Date Jay Howell MD [address] [place] [phone] PCP - General Emergency Medicine 11/12/23 documented as of this encounter
--- OUTSIDE RECORDS SUMMARY | 2025-07-22 07:51 | XMS_ITS | Encounter Summary ---
Author Organization [employer] ([place], [place], [place], [place]) Address [address] [place] [address] Care Team Providers Care Crane Ladle Person Name Role Phone Jay Howell MD Primary Care Provider [phone] Encounter Details Date Type Department Care Team (Late st Contact Info) Description 12/12/2018 Transcribed Document [facility] [place] [address] [place] [address] ProviderJessie MD [address] [place] [address] Social History Tobacco Use Types Packs/Day Years Used Date Smoking Tobacco: Never Assessed Comments Unknown Sex and Gender Information Value Date Recorded Sex Assigned at Not on file Legal Sex Female 7:30 PM CDT Gender Identity Not on file Sexual Orientation Not on file documented as of this encounter Miscellaneous Notes * Cerner Conversion Note - Jessie ProviderMD - 12/12/2018 10:39 PM CYCLE ANALYST ED Discharge Entered On: 12/12/2018 22:40 EST [...] - 12/12/2018 22:39 EST Electronically signed by [facility], [facility] Conversion Environmental Sustainability Manager Cerner at 02/04/2023 2:15 PM CDT documented in this encounter Plan of Treatment Not on file documented as of this encounter Visit Diagnoses Not on filedocumented in this encounter Care Teams Crane Ladle Person Relationship Specialty Start Date End Date Jay Howell MD [address] [place] [phone] PCP - General Emergency Medicine 11/12/23 documented as of this encounter
--- OUTSIDE RECORDS SUMMARY | 2025-07-22 07:51 | XMS_ITS | Encounter Summary ---
Author Organization [employer] ([place], [place], [place], [place]) Address [address] [place] [address] Care Team Providers Care Tamping Machine Operator Name Role Phone Jay Howell MD Primary Care Provider [phone] Encounter Details Date Type Department Care Team (Late st Contact Info) Description 08/28/2020 Transcribed Document [facility] [place] [address] [place] [address] ProviderJessie MD [address] [place] [address] Social History Tobacco Use Types Packs/Day Years Used Date Smoking Tobacco: Never Assessed Comments Unknown Sex and Gender Information Value Date Recorded Sex Assigned at Not on file Legal Sex Female 7:30 PM CDT Gender Identity Not on file Sexual Orientation Not on file documented as of this encounter Miscellaneous Notes * Cerner Conversion Note - Historical ProviderMD - 08/28/2020 10:16 AM YOUTH ASSOCIATE Attempt to Treat, PT Entered On: 08/28/2020 [...] - 08/28/2020 10:27 EST Electronically signed by [facility], [facility] Conversion Intensive Care Unit Registered Nurse Cerner at 02/04/2023 2:14 PM CDT documented in this encounter Plan of Treatment Not on file documented as of this encounter Visit Diagnoses Not on filedocumented in this encounter Care Teams Tamping Machine Operator Relationship Specialty Start Date End Date Jay Howell MD [address] [place] [phone] PCP - General Emergency Medicine 11/12/23 documented as of this encounter
--- OUTSIDE RECORDS SUMMARY | 2025-07-22 07:51 | XMS_ITS | Encounter Summary ---
Author Organization [employer] ([place], [place], [place], [place]) Address [address] [place] [address] Care Team Providers Care Complaint Analyst Name Role Phone Jay Howell MD Primary Care Provider [phone] Encounter Details Date Type Department Care Team (Late st Contact Info) Description 08/27/2020 Transcribed Document [facility] Family Medicine [address] [place] [address] ProviderJessie MD [address] [place] [address] Social History Tobacco Use Types Packs/Day Years Used Date Smoking Tobacco: Never Assessed Comments Unknown Sex and Gender Information Value Date Recorded Sex Assigned at Not on file Legal Sex Female 7:30 PM CDT Gender Identity Not on file Sexual Orientation Not on file documented as of this encounter Miscellaneous Notes * Cerner Conversion Note - Jessie Yuen MD - 08/27/2020 3:10 PM FINANCIAL DEALERS On Going Discharge Planning Entered On: 08/27/2020 15:14 EST Performed On: 08/27/2020 15:10 EST by KAVTIA PELLETIER RN-[place] StokerCounty Historian Progress Note Discharge Arrangements : Patient Post-Acute [...] Meeting Medical Necessity : Yes KAVITA PELLETIER RN-Kiln Stoker - 08/27/2020 15:10 EST Narrative Progress Note [...] past after her SIMONA and went to [facility] prior to home with HH. She is agreeable to look at list of ENGINEERING LEADER to make an informed decision based on quality and resource use information. Cx's are pending to determine need for IV abx at home. Likely dc in a few days. CM will continue to follow. KAVITA PELLETIER RN-Kiln Stoker - 08/27/2020 15:10 EST Electronically signed by Sivan [facility] Conversion Merchandise Presentation Associate Cerner at 02/04/2023 2:13 PM CDT documented in this encounter Plan of Treatment Not on file documented as of this encounter Visit Diagnoses Not on filedocumented in this encounter Care Teams Complaint Analyst Relationship Specialty Start Date End Date Jay Howell MD [address] [place] [phone] PCP - General Emergency Medicine 11/12/23 documented as of this encounter
--- OUTSIDE RECORDS SUMMARY | 2025-07-22 07:51 | XMS_ITS | Encounter Summary ---
Author Organization [employer] ([place], [place], [place], [place]) Address [address] [place] [address] Care Team Providers Care Rag Shredder Name Role Phone Jay Howell MD Primary Care Provider [phone] Encounter Details Date Type Department Care Team (Late st Contact Info) Description 09/01/2020 Transcribed Document [facility] Family Medicine [address] [place] [address] ProviderJessie MD [address] [place] [address] Social History Tobacco Use Types Packs/Day Years Used Date Smoking Tobacco: Never Assessed Comments Unknown Sex and Gender Information Value Date Recorded Sex Assigned at Not on file Legal Sex Female 7:30 PM CDT Gender Identity Not on file Sexual Orientation Not on file documented as of this encounter Miscellaneous Notes * Cerner Conversion Note - Jessie Yuen MD - 09/01/2020 2:19 PM IMAGING ASSISTANT Patient Education Materials Follows: Negative Pressure Wound [...] bag. ??? Soap and water, or hand event producer. ??? Wound cleanser or salt-water solution (saline). [...] and water are not available, use hand event producer. 3. Set up a clean station for [...] and water are not available, use hand event producer. Clean your wound ??? Wear gloves, protective [...] and water are not available, use hand event producer. Apply new dressing ??? Wear gloves, protective [...] and water are not available, use hand event producer. 8. Turn the pump back on. The sponge dressing should collapse. Do not change the settings on the machine without talking to a health care provider. 9. Replace the container in the pump that collects fluid if it is full. Replace the container per the technician assistant's instructions or at least once a week, [...] clamps are open. ??? Do not use qhoz-dzu-bvkxcls medicated or antiseptic creams, sprays, liquids, or [...] 12/25/2012 Document Revised: 01/25/2020 Document Reviewed: 12/21/2019 [employer] Patient Education ? 2019 [employer] Hematology Hematoma A hematoma is a [...] health care provider. General instructions ??? Take gljf-iyz-bbosdkj and prescription medicines only as told by [...] 05/17/2005 Document Revised: 03/08/2019 Document Reviewed: 03/08/2019 [employer] Patient Education ? 2020 [employer] Infectious Disease Cellulitis, Adult Cellulitis is [...] these instructions at home: Medicines ??? Take nczm-bmv-bzmwabi and prescription medicines only as told by [...] 03/21/2009 Document Revised: 02/22/2019 Document Reviewed: 02/22/2019 [employer] Patient Education ? 2020 [employer] Pharmacology What You Need to Know [...] other medicines or supplements? Many prescription and zfjm-ckr-iccedsn medicines can interfere with warfarin. Talk with your health care provider or your pharmacist before starting or stopping any new medicines. This includes abiu-mhd-xfofgdc vitamins, dietary supplements, herbal medicines, and pain medicines. Your warfarin dosage may need to be adjusted. ??? Some common eohu-fgp-ahbsbsj medicines that may increase the risk of [...] that you work with a diet and nutritional services director (dietitian). ??? Vitamin K decreases the effect [...] cooked. ??? Collards, raw or cooked. ??? Moldovan chard, raw or cooked. ??? Mustard greens, raw or cooked. ??? Turnip greens, raw or cooked. ??? Parsley, raw. ??? Broccoli, cooked. ??? Noodles, eggs, and spinach, enriched. ??? [place] sprouts, raw or cooked. ??? Beet greens, [...] diet. ??? You start or stop any kjkh-jmi-uhscxut medicine, prescription medicine, or dietary supplement. ??? [...] 10/03/2006 Document Revised: 05/16/2018 Document Reviewed: 12/29/2016 [employer] Patient Education ? 2020 [employer]. Electronically signed by Gayle Finnegan Conversion Foundation Drill Operator Helper Cerner at 02/04/2023 2:13 PM CDT documented in this encounter Plan of Treatment Not on file documented as of this encounter Visit Diagnoses Not on filedocumented in this encounter Care Teams Rag Shredder Relationship Specialty Start Date End Date Jay Howell MD [address] [place] [phone] PCP - General Emergency Medicine 11/12/23 documented as of this encounter
--- OUTSIDE RECORDS SUMMARY | 2025-07-22 07:52 | XMS_ITS | Encounter Summary ---
Author Organization [employer] ([place], [place], [place], [place]) Address [address] [place] [address] Care Team Providers Care Jewelry Bench Worker Name Role Phone Jay Howell MD Primary Care Provider [phone] Encounter Details Date Type Department Care Team (Late st Contact Info) Description 08/28/2020 Transcribed Document [facility] [place] [address] [place] [address] ProviderJessie MD [address] [place] [address] Social History Tobacco Use Types Packs/Day Years Used Date Smoking Tobacco: Never Assessed Comments Unknown Sex and Gender Information Value Date Recorded Sex Assigned at Not on file Legal Sex Female 7:30 PM CDT Gender Identity Not on file Sexual Orientation Not on file documented as of this encounter Miscellaneous Notes * Cerner Conversion Note - Jessie ProviderMD - 08/28/2020 1:08 PM SSAS DEVELOPER Patient: SKYLER MONTOYA Age: 79 Years Sex: [...] distal ecchymosis. Palpable DP pulse, audible biphasic BRICKLAYER PAVING BRICK signal. Neuromotor intact. VTE Risk Total Score [...] LEFT PT occlusion - distal - 08/26/2020 ([facility];[place]) RIGHT WIRE COINER access - ultrasound guided Aortogram with LEFT lower extremity run-off LEFT PT angioplasty (2.5-6e201bs Nan[employer]) LEFT peroneal angioplasty (2.5-8p197ih Nanocross) RIGHT WIRE COINER closure (Angioseal) LEFT leg debridement - H&H, [...] for tomorrow's vac change. - Rx for Buc[place] 5/325mg q4-6h prn pain #20 on chart. - Will need RLE angio with revascularization in near future. - F/[place] 1 wk w/ [place]. [place] [facility] [place] 1245[place] - F/u w/ Dr. [...] 24 Hours) Radiology Results (Last 48 hours) [id number] -- 08/25/2020 05:53 CT Abdomen WO W [...] nitrofurantoin (blisters, blisters) Electronically signed by Sivan [facility] Conversion Golf Club Weigher Cerner at 02/04/2023 1:58 PM CDT documented in this encounter Plan of Treatment Not on file documented as of this encounter Visit Diagnoses Not on filedocumented in this encounter Care Teams Jewelry Bench Worker Relationship Specialty Start Date End Date Jay Howell MD [address] [place] [phone] PCP - General Emergency Medicine 11/12/23 documented as of this encounter
--- OUTSIDE RECORDS SUMMARY | 2025-07-22 07:52 | XMS_ITS | Encounter Summary ---
Author Organization [employer] ([place], [place], [place], [place]) Address [address] [place] [address] Care Team Providers Care Shipping Clerk/Admin Name Role Phone Jay Howell MD Primary Care Provider [phone] Encounter Details Date Type Department Care Team (Late st Contact Info) Description 08/28/2020 Transcribed Document [facility] Family Medicine [address] [place] [address] ProviderJessie MD [address] [place] [address] Social History Tobacco Use Types Packs/Day Years Used Date Smoking Tobacco: Never Assessed Comments Unknown Sex and Gender Information Value Date Recorded Sex Assigned at Not on file Legal Sex Female 7:30 PM CDT Gender Identity Not on file Sexual Orientation Not on file documented as of this encounter Miscellaneous Notes * Cerner Conversion Note - Historical ProviderMD - 08/28/2020 10:17 AM RESISTOR COATER Attempt to Treat, OT Entered On: 08/28/2020 [...] 08/28/2020 14:59 EST Electronically signed by Sivan [facility] Conversion Front End Developer Cerner at 02/04/2023 1:59 PM CDT documented in this encounter Plan of Treatment Not on file documented as of this encounter Visit Diagnoses Not on filedocumented in this encounter Care Teams Shipping Clerk/Admin Relationship Specialty Start Date End Date Jay Howell MD [address] [place] [phone] PCP - General Emergency Medicine 11/12/23 documented as of this encounter
--- OUTSIDE RECORDS SUMMARY | 2025-07-22 07:52 | XMS_ITS | Encounter Summary ---
Author Organization [employer] ([place], [place], [place], [place]) Address [address] [place] [address] Care Team Providers Care Power Transformer Assembler Name Role Phone Jay Howell MD Primary Care Provider [phone] Encounter Details Date Type Department Care Team (Late st Contact Info) Description 08/28/2020 Transcribed Document [facility] Family Medicine [address] [place] [address] ProviderJessie MD [address] [place] [address] Social History Tobacco Use Types Packs/Day Years Used Date Smoking Tobacco: Never Assessed Comments Unknown Sex and Gender Information Value Date Recorded Sex Assigned at Not on file Legal Sex Female 7:30 PM CDT Gender Identity Not on file Sexual Orientation Not on file documented as of this encounter Miscellaneous Notes * Cerner Conversion Note - Jessie Yuen MD - 08/28/2020 3:33 PM SCREEN PRINT OPERATOR On Going Discharge Planning Entered On: 08/28/2020 15:37 EST Performed On: 08/28/2020 15:33 EST by KAVITA PELLETIER RN-Full Charge BookkeeperTrauma Registrar Progress Note Discharge Arrangements : Patient Post-Acute [...] Meeting Medical Necessity : Yes KAVITA PELLETIER RN-Full Charge Bookkeeper - 08/28/2020 15:33 EST Narrative Progress Note Narrative Progress Note : Cx's still pending. IV Vanc/Dapto. Vasc s/o. Pt will need NPWT-CM will obtain prior to dc. List of ADVERTISING COPY WRITER's for [place] given to pt. She [...] past after her SIMONA and went to [facility] prior to home with HH. She is agreeable to look at list of ADVERTISING COPY WRITER to make an informed decision based on quality and resource use information. Cx's are pending to determine need for IV abx at home. Likely dc in a few days. CM will continue to follow. KAVITA PELLETIER RN-Full Charge Bookkeeper - 08/27/20 15:14:36 KAVITA PELLETIER RN-Full Charge Bookkeeper - 08/28/2020 15:33 EST Electronically signed by Sivan [facility] Conversion Shop Repairer Cerner at 02/04/2023 2:13 PM CDT documented in this encounter Plan of Treatment Not on file documented as of this encounter Visit Diagnoses Not on filedocumented in this encounter Care Teams Power Transformer Assembler Relationship Specialty Start Date End Date Jay Howell MD [address] [place] [phone] PCP - General Emergency Medicine 11/12/23 documented as of this encounter
--- OUTSIDE RECORDS SUMMARY | 2025-07-22 07:52 | XMS_ITS | Encounter Summary ---
Author Organization [facility] Address [address] [place] [id number] Care Team Providers Care Test Preparation Tutor Name Role Phone Jay Howell MD Primary Care Provider Encounter Details Date Type Department Care Team (Late st Contact Info) Description 07/09/2025 Telephone [place] [facility] [address] [place] [address] [place] [address] Social History Tobacco Use Types Packs/Day Years [...] place to sleep or slept in a penitentiary (including now)? No 08/06/2024 CAGE ASSESSMENT Answer [...] drink first t kathleen in the morning (EYE-CHEMIST INSTRUMENTATION) to steady your nerves or to get [...] documented as of this encounter Care Teams Test Preparation Tutor Relationship Specialty Start Date End Date Jay Howell MD [address] [place], [place] [address] PCP - General 03/08/21 documented as of this encounter
--- OUTSIDE RECORDS SUMMARY | 2025-07-22 07:52 | XMS_ITS | Encounter Summary ---
Author Organization [employer] ([place], [place], [place], [place]) Address [address] [place] [address] Care Team Providers Care Chemical Unit Operator Name Role Phone Jay Howell MD Primary Care Provider [phone] Encounter Details Date Type Department Care Team (Late st Contact Info) Description 08/28/2020 Transcribed Document [facility] [place] [address] [place] [address] ProviderJessie MD [address] [place], [place] [address] Social History Tobacco Use Types Packs/Day Years Used Date Smoking Tobacco: Never Assessed Comments Unknown Sex and Gender Information Value Date Recorded Sex Assigned at Not on file Legal Sex Female 7:30 PM CDT Gender Identity Not on file Sexual Orientation Not on file documented as of this encounter Miscellaneous Notes * Cerner Conversion Note - Historical ProviderMD - 08/28/2020 9:22 AM WATER SOFTENER SERVICER AND INSTALLER Patient: SKYLER MONTOYA Age: 79 Years Sex: [...] (High) 08/28/2020 07:35 EST Electronically signed by [facility] Conversion Chemical Process Engineer Cerner at 02/04/2023 2:12 PM CDT documented in this encounter Plan of Treatment Not on file documented as of this encounter Visit Diagnoses Not on filedocumented in this encounter Care Teams Chemical Unit Operator Relationship Specialty Start Date End Date Jay Howell MD [address] [place] [phone] PCP - General Emergency Medicine 11/12/23 documented as of this encounter
--- OUTSIDE RECORDS SUMMARY | 2025-07-22 07:52 | XMS_ITS | Encounter Summary ---
Author Organization [employer] ([place], [place], [place], [place]) Address [address] [place] [address] Care Team Providers Care Explosive Operator Name Role Phone Jay Howell MD Primary Care Provider [phone] Encounter Details Date Type Department Care Team (Late st Contact Info) Description 08/28/2020 Transcribed Document [facility] Family Medicine [address] [place] [address] ProviderJessie MD [address] [place] [address] Social History Tobacco Use Types Packs/Day Years Used Date Smoking Tobacco: Never Assessed Comments Unknown Sex and Gender Information Value Date Recorded Sex Assigned at Not on file Legal Sex Female 7:30 PM CDT Gender Identity Not on file Sexual Orientation Not on file documented as of this encounter Miscellaneous Notes * Cerner Conversion Note - Jessie Yuen MD - 08/28/2020 11:43 AM HACKSAW INSPECTOR Patient: SKYLER MONTOYA Age: 79 years Sex: Female : 1940 Associated Diagnoses: None Author: SLICK BRADLEY, [facility] Ms. Montoya is 79 yo female admitted [...] Slick [place], [place] Electronically signed by Sivan [facility] Conversion Microsoft Dynamics Ax Consultant Cerner at 02/04/2023 1:57 PM CDT documented in this encounter Plan of Treatment Not on file documented as of this encounter Visit Diagnoses Not on filedocumented in this encounter Care Teams Explosive Operator Relationship Specialty Start Date End Date Jay Howell MD [address] [place] [phone] PCP - General Emergency Medicine 11/12/23 documented as of this encounter
[2025-07-22 08:05] LABS: Hematocrit 25.9 % (37.0-47.0); Hemoglobin 8.6 g/dL (12.2-16.2); Immature Granulocytes % 0 %; Mean Corpuscular HGB Conc 33.2 g/dL (31.8-35.4); Mean Corpuscular Hemoglobin 36.9 pg (27.0-31.2); Mean Corpuscular Volume 111.2 fl (81-99); Nucleated Red Blood Cells % 0 %; Platelet Count 68 K/mm3 (142-424); Red Blood Count 2.33 M/mm3 (4.20-5.40); Red Cell Distribution Width-SD 65.4 fL; White Blood Count 3.2 K/mm3 (4.8-10.8)
[2025-07-22 12:34] LABS: Vitamin B12 935 pg/mL (239-931)
[2025-07-22 12:53] LABS: Folate 8.65 ng/mL
[2025-07-22 15:40] LABS: Iron 77 ug/dL (37-170)
[2025-07-22 15:51] LABS: Total Iron Binding Capacity 302 ug/dL (265-497)
[2025-07-22 16:22] LABS: Ferritin 35.4 ng/ml (11.1-264)
== END 2025-07-22 23:59 | disposition home or self-care (01) ==
PROVIDERS: PCP Family Medicine; Visit Provider Family Medicine
DX: D64.9 Anemia, unspecified (principal)
CPT/HCPCS: 36415; 82607; 82728; 82746; 83540; 83550; 85025

== ENCOUNTER 2025-07-24 06:45 | Outpatient (CLI) | payer MEDICARE, SELFPAY ==
--- OUTSIDE RECORDS SUMMARY | 2025-02-05 08:00 | XMS_ITS | Encounter Summary ---
Author Organization [place] [address] Care Team Providers Care Rivet Flunky Name Role Phone No Pcp, Per Patient Primary Care Provider Evelyne prabhakar Encounter Details Date Type Department Care Team (Latest Contact Info) Description 02/05/2025 8:00 AM EDT Hospital Encounter SE Referral Lab 1 [place] [address] Valentino Ugalde MD 47 [facility] [address] [place] [address] Encounter for general adult medical [...] Recorded In the past 12 months has [employer] electric, gas, oil, or water company threatened to shut off services in your home? No 06/23/2025 Overall Financial Resource Strain (CARDIA) Answe r Date Recorded How hard is it for you to pa y for the very basics like food, housing, medical care, and heating? Not very hard 06/23/2025 PHQ-2 Answer Date Recorded PHQ-2 Total Score 0 06/23/2025 [facility] [place] of Occupat ional Health - Occupational Stress [...] money to get more. Never true 06/23/2025 [facility] IP Transportation Answer D ate Recorded In [...] 1:16 PM EDT Emiliano Jimenez RN * [place] Suicide Severity Rating Scale (Q shift for [...] to question 6) 0 06/23/2025 1:16 PM THERESET Denice Jimenez RN 6. Have you ever done anything, started [...] documented as of this encounter Care Teams Rivet Flunky Relationship Specialty Start Date End Date No Pcp, Per Patient PCP - General 06/04/24 documented as of this encounter
--- OUTSIDE RECORDS SUMMARY | 2025-02-05 08:00 | XMS_ITS | Encounter Summary ---
Author Organization [place] [address] Care Team Providers Care Naphthalene Operator Helper Name Role Phone No Pcp, Per Patient Primary Care Provider Evelyne prabhakar Encounter Details Date Type Department Care Team (Latest Contact Info) Description 02/05/2025 8:00 AM EDT Hospital Encounter SE Referral Lab 1 [place] [address] Valentino Ugalde MD 47 [facility] [address] [place] [address] Encounter for general adult medical [...] Recorded In the past 12 months has [employer] electric, gas, oil, or water company threatened to shut off services in your home? No 06/23/2025 Overall Financial Resource Strain (CARDIA) Answe r Date Recorded How hard is it for you to pa y for the very basics like food, housing, medical care, and heating? Not very hard 06/23/2025 PHQ-2 Answer Date Recorded PHQ-2 Total Score 0 06/23/2025 [facility] [place] of Occupat ional Health - Occupational Stress [...] money to get more. Never true 06/23/2025 [facility] IP Transportation Answer D ate Recorded [...] 1:16 PM EDT Emiliano Jimenez RN * [place] Suicide Severity Rating Scale (Q shift for moderate and high) Question Answer Date of Assessment Author 1. In the past month, have you wished you were or wished you could go to sleep and not wake up? 0 06/23/2025 1:16 PM EDT Denice Jimenez RN 2. In the past month, have you actually had any thoughts of killing yourself? (If no, skip to question 6) 0 06/23/2025 1:16 PM EDT Denice Jimenez RN 6. Have you ever [...] 02/12/2025 6:52 AM EDT [facility] [employer] RBC 2.12(L) 3.90 - 5.20 x10(6)/mcL 02/12/2025 [...] 6:52 AM EDT [facility] [place] Percent 12.7 % 02/12/2025 6:52 AM EDT [...] 0.0. Lymph # 1.3 1.2 - 3.9 x10(3)/[facility] 02/12/2025 6:52 AM EDT [facility] [place] # 0.4 0.3 - 0.9 x10(3)/[facility] 02/12/2025 6:52 AM EDT [facility] Eos# 0.0 0.0 - 0.5 x10(3)/[facility] 02/12/2025 6:52 AM EDT [facility] [place] # 0.0 0.0 - 0.1 x10(3)/[facility] 02/12/2025 6:52 AM EDT [facility] Blood VENOUS BLOOD / Unknown Venipuncture / Unknown 02/12/2025 4:50 AM EDT 02/12/2025 6:30 AM EDT us Valentino Ugalde MD HEMATOLOGY ORDERABLES Final Res ult [facility] 1 [facility] , [place] [address] documented in this encounter Visit Diagnoses Diagnosis Encounter for general adult medical examination without abnormal findings Routine general medical examination at a health care facility documented in this encounter Additional Health Concerns Infection Onset Date Last Indicated Resolved Time ESBL organism Comment:ESBL urine: 05/23, 06/1205/23/2025 06/12/2025 documented as of this encounter Care Teams Naphthalene Operator Helper Relationship Specialty Start Date End Date No Pcp, Per Patient PCP - General 06/04/24 documented as of this encounter
--- OUTSIDE RECORDS SUMMARY | 2025-02-05 08:00 | XMS_ITS | Encounter Summary ---
Author Organization [place] [address] Care Team Providers Care Hand Paint Mixer Name Role Phone No Pcp, Per Patient Primary Care Provider Evelyne prabhakar Encounter Details Date Type Department Care Team (Latest Contact Info) Description 02/05/2025 8:00 AM EDT Hospital Encounter SE Referral Lab 1 [place] [address] Valentino Ugalde MD 47 [facility] [address] [place] [address] Encounter for general adult medical examination without abnormal findings Social History Tobacco Use Types Packs/Day Years Used Date Smoking Tobacco: Former Cigarettes Q uit: 1991 Passive Smoke Exposure: Past Smokeless Tobacco: Never Alcohol Use Standard Drinks/Week Comments Not Currently 0 (1 standard drink = 0.6 oz pur e alcohol) [facility] Utilities Answer Date Recorded In the past 12 months has [email or web address] electric, gas, oil, or water company threatened to shut off services in your home? No 06/23/2025 Overall Financial Resource Strain (CARDIA) Answe r Date Recorded How hard is it for you to pa y for the very basics like food, housing, medical care, and heating? Not very hard 06/23/2025 PHQ-2 Answer Date Recorded PHQ-2 Total Score 0 06/23/2025 [facility] [place] of Occupat ional Health - Occupational Stress [...] money to get more. Never true 06/23/2025 [facility] IP Transportation Answer D ate Recorded [...] 1:16 PM EDT Emiliano Jimenez RN * [place] Suicide Severity Rating Scale (Q shift for [...] - 40.0 mg/dL 02/12/2025 7:15 AM EDT [employer] Blood VENOUS BLOOD / Unknown Venipuncture / Unknown 02/12/2025 4:50 AM EDT 02/12/2025 6:30 AM EDT us Valentino Ugalde MD CHEMISTRY ORDERABLES Final Resu lt [facility] [employer] [address] [facility] , [place] [address] documented in this encounter Visit Diagnoses Diagnosis Encounter for general adult medical examination without abnormal findings Routine general medical examination at a health care facility documented in this encounter Additional Health Concerns Infection Onset Date Last Indicated Resolved Time ESBL organism Comment:ESBL urine: 05/23, 06/1205/23/2025 06/12/2025 documented as of this encounter Care Teams Hand Paint Mixer Relationship Specialty Start Date End Date No Pcp, Per Patient PCP - General 06/04/24 documented as of this encounter
--- OUTSIDE RECORDS SUMMARY | 2025-02-05 08:00 | XMS_ITS | Encounter Summary ---
Author Organization [place] [address] Care Team Providers Care President And Chief Operating Officer Name Role Phone No Pcp, Per Patient Primary Care Provider Evelyne prabhakar Encounter Details Date Type Department Care Team (Latest Contact Info) Description 02/05/2025 8:00 AM EDT Hospital Encounter SE Referral Lab 1 [place] [address] Valentino Ugalde MD 47 [facility] [address] [place] [address] Encounter for general adult medical examination without abnormal findings Social History Tobacco Use Types Packs/Day Years Used Date Smoking Tobacco: Former Cigarettes Q uit: 1991 Passive Smoke Exposure: Past Smokeless Tobacco: Never Alcohol Use Standard Drinks/Week Comments Not Currently 0 (1 standard drink = 0.6 oz pur e alcohol) [facility] Utilities Answer Date Recorded In the past 12 months has [employer] electric, gas, oil, or water company threatened to shut off services in your home? No 06/23/2025 Overall Financial Resource Strain (CARDIA) Answe r Date Recorded How hard is it for you to pa y for the very basics like food, housing, medical care, and heating? Not very hard 06/23/2025 PHQ-2 Answer Date Recorded PHQ-2 Total Score 0 06/23/2025 [facility] of Occupat ional Health - Occupational Stress [...] money to get more. Never true 06/23/2025 [facility] IP Transportation Answer D ate Recorded In [...] 1:16 PM EDT Emiliano Jimenez RN * [place] Suicide Severity Rating Scale (Q shift for [...] 02/12/2025 7:12 AM EDT [facility] Anion Gap 10 7 - 16 mmol/L 02/12/2025 7:12 AM EDT [facility] Calcium 9.1 8.8 - 10.4 mg/dL 02/12/2025 7:12 AM EDT [facility] Glucose Lvl 101(H) 70 - 99 mg/dL 02/12/2025 7:12 AM EDT [facility] BUN 17 8 - 23 mg/dL 02/12/2025 7:12 AM EDT [facility] Creatinine 1.10 0.51 - 1.30 mg/dL 02/12/2025 7:12 AM EDT [facility] Albumin 3.4 3.2 - 4.6 gm/dL 02/12/2025 7:12 AM EDT [facility] Total Protein 6.2(L) 6.4 - 8.3 gm/dL 02/12/2025 7:12 AM EDT [facility] Bili Total 0.6 0.2 - 1.3 mg/dL 02/12/2025 7:12 AM EDT [facility] ALT 18 <=41 U/L 02/12/2025 7:12 AM EDT [facility] AST 25 <=40 U/L 02/12/2025 7:12 AM EDT [facility] Alk Phos 143(H) 36 - 123 U/L 02/12/2025 7:12 AM EDT [facility], [facility] eGFR (CKD-EPIcr 2020) 49(L) >=60 mL/min/1.7 3 m2 02/12/2025 7:12 AM EDT [facility] Comment:Estimated GFR was ca lculated using the CKD-EPIcr (2020) equation refit without race. The equation is recommended by the National Kidney Foundation - [place] Society of Nephrology Task Force. Blood VENOUS BLOOD / Unknown Venipuncture / Unknown 02/12/2025 4:50 AM EDT 02/12/2025 6:30 AM EDT us Valentino Ugalde MD CHEMISTRY ORDERABLES Final Resu lt [facility] [employer] [address] [facility] , [place] [address] documented in this encounter Visit Diagnoses Diagnosis Encounter for general adult medical examination without abnormal findings Routine general medical examination at a health care facility documented in this encounter Additional Health Concerns Infection Onset Date Last Indicated Resolved Time ESBL organism Comment:ESBL urine: 05/23, 06/1205/23/2025 06/12/2025 documented as of this encounter Care Teams President And Chief Operating Officer Relationship Specialty Start Date End Date No Pcp, Per Patient PCP - General 06/04/24 documented as of this encounter
--- OUTSIDE RECORDS SUMMARY | 2025-02-05 08:00 | XMS_ITS | Encounter Summary ---
Author Organization [place] [address] Care Team Providers Care Mailroom Clerk Name Role Phone No Pcp, Per Patient Primary Care Provider Evelyne prabhakar Encounter Details Date Type Department Care Team (Latest Contact Info) Description 02/05/2025 8:00 AM EDT Hospital Encounter SE Referral Lab 1 [place] [address] Valentino Ugalde MD 47 [facility] [address] [place] [address] Encounter for general adult medical examination without abnormal findings Social History Tobacco Use Types Packs/Day Years Used Date Smoking Tobacco: Former Cigarettes Q uit: 1991 Passive Smoke Exposure: Past Smokeless Tobacco: Never Alcohol Use Standard Drinks/Week Comments Not Currently 0 (1 standard drink = 0.6 oz pur e alcohol) [facility] Utilities Answer Date Recorded In the past 12 months has [employer] electric, gas, oil, or water company threatened to shut off services in your home? No 06/23/2025 Overall Financial Resource Strain (CARDIA) Answe r Date Recorded How hard is it for you to pa y for the very basics like food, housing, medical care, and heating? Not very hard 06/23/2025 PHQ-2 Answer Date Recorded PHQ-2 Total Score 0 06/23/2025 [facility] [place] of Occupat ional Health - Occupational Stress [...] Never true 06/23/2025 [facility] IP Transportation Answer D ate [...] Assessment Author 0 04/30/2025 10:00 PM EDT aNyana Ward RN * Drug Screening Score Answer [...] 1:16 PM EDT Emiliano Jimenez RN * [place] Suicide Severity Rating Scale (Q shift for [...] documented as of this encounter Care Teams Mailroom Clerk Relationship Specialty Start Date End Date No Pcp, Per Patient PCP - General 06/04/24 documented as of this encounter
--- OUTSIDE RECORDS SUMMARY | 2025-02-07 08:42 | XMS_ITS | Encounter Summary ---
Author Organization [place] [address] Care Team Providers Care Coroner Name Role Phone No Pcp, Per Patient Primary Care Provider Evelyne prabhakar Encounter Details Date Type Department Care Team (Latest Contact Info) Description 02/07/2025 8:42 AM EDT Hospital Encounter [facility] Referral Lab 1 [place], [place] [phone] Encounter for general adult medical examination without abnormal findings Social History Tobacco Use Types Packs/Day Years Used Date Smoking Tobacco: Former Cigarettes Q uit: 1991 Passive Smoke Exposure: Past Smokeless Tobacco: Never Alcohol Use Standard Drinks/Week Comments Not Currently 0 (1 standard drink = 0.6 oz pur e alcohol) [facility] Utilities Answer Date Recorded In the past 12 months has [employer], gas, oil, or water [employer] threatened to shut off services in your home? No 06/23/2025 Overall Financial Resource Strain (CARDIA) Answe r Date Recorded How hard is it for you to pa y for the very basics like food, housing, medical care, and heating? Not very hard 06/23/2025 PHQ-2 Answer Date Recorded PHQ-2 Total Score 0 06/23/2025 [facility] [place] of Occupat ional Health - Occupational Stress [...] money to get more. Never true 06/23/2025 [facility] IP Transportation Answer D ate Recorded [...] 1:16 PM EDT Emiliano Jimenez RN * [place] Suicide Severity Rating Scale (Q shift for [...] documented as of this encounter Care Teams Coroner Relationship Specialty Start Date End Date No Pcp, Per Patient PCP - General 06/04/24 documented as of this encounter
--- OUTSIDE RECORDS SUMMARY | 2025-04-30 16:07 | XMS_ITS | Encounter Summary ---
Author Organization [place] [address] Care Team Providers Care Beaver Trapper Name Role Phone No Pcp, Per Patient Primary Care Provider Evelyne prabhakar Reason for Visit * Reason Comments Wound Dehiscence Pt presents per ems from [facility], toes amputated on left foot, here for wound check. * Auth/Cert/Inpt (Routine) Specialty Diagnoses / Procedures Referred By Contac t Referred To Contact Diagnoses Wound dehiscence Referral ID Status Reason Start Date Expiration Date Visits Re quested Visits Authorized [id number] 1 1 Encounter Details Date Type Department Care Team (Latest Contact Info) Description 04/30/2025 4:07 PM EDT - 06/10/2025 4:06 PM EDT Hospital Encounter EDG 5D [facility] [address] [place] [id number] Donnie Kaur MD [address] [place] [address] [place] [address] Marcell Aguirre MD [address] [place] [address] [place] [address] Stephen Pickard MD [address] [place] [address] [place] [address] Trino Montiel MD [address] [place] [address] DR INMAN, [place]AT[place]Z [phone] Wound dehiscence (Primary Dx); Typical atrial flutter (HCC); Left foot pain; PAD (peripheral artery disease); Critical limb ischemia of left lower extremity (HCC); Preop testing Discharge Disposition: Alf Facility Social History Tobacco Use Types Packs/Day Years Used Date Smoking Tobacco: Former Cigarettes Q uit: 1991 Passive Smoke Exposure: Past Smokeless Tobacco: Never Alcohol Use Standard Drinks/Week Comments Not Currently 0 (1 standard drink = 0.6 oz pur e alcohol) [facility] Utilities Answer Date Recorded In the [...] Date Recorded PHQ-2 Total Score 0 05/01/2025 [place] [facility] - Occupational [...] money to get more. Never true 05/01/2025 [facility] IP Transportation Answer D [...] 0 05/01/2025 3:13 PM EDT Dmitriy, Rosario, EQUIPMENT OPERATOR WAGE HAND * PHQ-9 Total Score Answer Date of Assessment Author 0 05/01/2025 3:13 PM EDT Izaguirre, Lina jadeherlinda, EQUIPMENT OPERATOR WAGE HAND * PHQ-2 Total Score Answer Date of Assessment Author 0 05/01/2025 3:13 PM EDT Dmitriy, Lina harding, EQUIPMENT OPERATOR WAGE HAND * Suicide Severity Rating Answer Date of Assessment Author No Risk 04/30/2025 4:20 PM EDT Hillary Arriaza RN * [place] Suicide Severity Rating Scale (Q shift for [...] from the original note were not included. [facility] Discharge Summary Patient Name: Skyler Bautista : [...] Paroxysmal atrial fibrillation (HCC) Coronary arteriosclerosis in [place] artery // Hx of CABG Type 2 diabetes mellitus, without long-term current use of insulin (HCC) Hypertension associated with diabetes (HCC) Acute heart failure with preserved ejection fraction (HCC)(Resolved) Brief Hospital Summary: Did go to [facility] when bed available. Full summary Assessment & [...] for phantom pain control) Coronary arteriosclerosis in [place] artery // Hx of CABG Asa , [...] reasons to take this nalOXone 4 mg/actuation [place] Dose: 4 mg Qty: 1 Each Refills: 0 Commonly known as: NARCAN 4 mg, Nasal, PRN, Raymond the contents of one device (0.1mL) into [...] Your Medications These medications were sent to [facility] [place] [address] - [address] - [phone] [address], [facility] [address] ALPRAZolam 0.5 mg Tab carvediloL 25 mg Tab fUROsemide 40 mg Tab gabapentin 300 mg Cap latanoprost 0.005 % Drop lidocaine 4 % Ptmd nortriptyline 10 mg Cap oxyCODONE 5 mg Tab pantoprazole 40 mg Tbec Condition at Discharge: stable Disposition: SNF Follow-up: [facility] [address] [id number] Lawrence Wolf MD [address] [place] [address] [place] [address] Follow up on 06/24/2025 Staple removal on [...] Patch 06/11/2025 nalOXone (NARCAN) 4 mg/actuation Nasl Raymond, Non-Aerosol 0.1 mL by Nasal route as needed for Opioid Reversal. Raymond the contents of one device (0.1mL) into [...] Disposition Code Departure Means Destination Comment s Alf Facility Travis benavides documented in this encounter [...] 4:06 PM EDTAssociated Problem(s): Coronary arteriosclerosis in [place] artery // Hx of CABG Asa , [...] Discharge Note: Pt to be discharged to [facility], via transport per [facility]. Report called to Katie MCCRAY at [facility]. Verbalized understanding. PIV removed, [...] per week. Time In / Time Out 3360-6760 IP OT Individual Treatment Minutes 38 The [...] Pt [facility]jaida Bucio for [place] okay with pt coming back today and updated on Ambulance time of 1500. Pt states she will have all the help and support she needs for home. Pt states understanding of all DC medications, care needs, and follow up appointments. . Sister notified of return to [facility]. No DC needs requested by pt or identified by CC. CC will sign off. Final Note Referral to SEP Care Management (SEP patients only) N/A Discharge Round Completed Yes Post Acute Facility [facility] Post Acute Form Assign to DC Tabula No Post Acute Form Completed Yes Care Coordination Discharge Ready? Yes [facility] DME Arranged at Discharge None DME Assign to DC Tech No DME completed by [employer] No Transportation at Discharge Personal vehicle Date Expected 06/10/25 Time Expected 1500 Transportation Assign to [employer] Yes Confirmed Discharge Transportation Plan? Yes Transportation setup completed by [employer] No PASAR Completed Not Applicable Patient Aware and Agrees with DC Plan Yes Primary Caregiver/Legal Decision Maker aware and agree with Discharge Plan Yes Name of Family member notified Sister Family Member Notified Relationship to Patient Power of System Dispatcher Does family and/or caregiver verbalize readiness, willingness, [...] per week. Time In / Time Out 2039-1085 IP PT Treatment Minutes 40 The total [...] issues. See LDAs on flowsheet. 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 Wound care protocol followed [...] Evaluation Actual Discharge Plan 06/09/25 SW update. [facility] had bed today. Pt was not medically stable to [place] today. If dc on Tuesday, Will need ambulance at [place]. Sister request a call at [place] date. Post accute completed. Waiting for bed available at [facility]. SW following * Trino Montiel MD - [...] 11:10 AM EDTAssociated Problem(s): Coronary arteriosclerosis in [place] artery // Hx of CABG Asa , [...] mellitus, without long-term current use of insulin ([facility]) S/P transmetatarsal amputation of foot, left (HCC) [...] on real time basis Coronary arteriosclerosis in [place] artery // Hx of CABG Asa , [...] Paroxysmal atrial fibrillation (HCC) Coronary arteriosclerosis in [place] artery // Hx of CABG Type 2 [...] 11:33 AM EDTAssociated Problem(s): Coronary arteriosclerosis in [place] artery // Hx of CABG Asa , [...] controlled - not following FSBS * Trino Motniel MD - 06/08/2025 11:33 AM EDTAssociated Problem(s): [...] mellitus, without long-term current use of insulin ([facility]) S/P transmetatarsal amputation of foot, left ([facility]) - Wound dehiscence over previous left TMA [...] on real time basis Coronary arteriosclerosis in [place] artery // Hx of CABG Asa , statin and renexa Paroxysmal atrial fibrillation (HCC) Acute on chronic heart failure with preserved ejection fraction (HCC) - 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 - had been holding coreg for lower BPs - restart now with hold parameters as BP increased Hypertension associated with diabetes ([facility]) - A1c 5.3 - diet controlled - [...] Paroxysmal atrial fibrillation (HCC) Coronary arteriosclerosis in [place] artery // Hx of CABG Type 2 [...] 06/08/25 SW update. Spoke with Lottie at [facility]. Currently no beds available. [facility] continue to monitor pt for hallucinations. Will need ambulance at dc. Sister requesta call at dc date. Post accute completed. Waiting for bed available at [facility]. SW following * Amna Ferris, RN - [...] >980 Straight cath= 800ml Awaiting placement at [facility] * Arnaud Mata, PT - 06/07/2025 [...] per week. Time In / Time Out 9557-7651 IP PT Treatment Minutes 33 The total time spent caring for this patient included but was not limited to hands-on treatment;medical record review;communication and education with patient and/or family/caregiver;clinical judgement necessary for treatment planning for next session;communication with nursing and/or care coordinat ion/social work regarding patient status and discharge planning * Rhina Nunez RD,LD - 06/07/2025 12:[address] [facility] Nutrition Reassessment Evidence Supported Malnutrition Diagnosis: No malnutrition identified Nutrition Problem/Diagnosis: Nutrition Diagnosis Problem 1: Increased nutrient needs (specify) (kcal and pro) related to increased demand for energy/nutrients as evidenced by wounds. Status: Active nutrition diagnosis Nutrition Prescription: Kcals: 7994-8884 kcal (25-30 kcal/kg using 52.1 kg) Protein (g): 62-78 gm Protein needs based on: 1.2-1.5 gm/kg Fluid (ml): 1 mL/kcal Other (comment): Reviewed 06/07 Plan/Interventions: Meals and Snacks: Regular Medical Food Supplements: Glucerna Therapeutic Medical Food/Supplement Freq: 1xday - [place] Nutrition-Related Medication Management: Lasix, Protonix Nutrition Education: [...] Stool Occurrence: 1 Stool Appearance: Type 4 [place] Stool Chart Stool Color: Brown Stool Amount: [...] mellitus, without long-term current use of insulin ([facility]) - Wound dehiscence over previous left TMA [...] 12:27 PM EDTAssociated Problem(s): Coronary arteriosclerosis in [place] artery // Hx of CABG Asa , [...] mellitus, without long-term current use of insulin ([facility]) S/P transmetatarsal amputation of foot, left (HCC) [...] on real time basis Coronary arteriosclerosis in [place] artery // Hx of CABG Asa , [...] Paroxysmal atrial fibrillation (HCC) Coronary arteriosclerosis in [place] artery // Hx of CABG Type 2 [...] spoke with son on phone, met with [facility] liaison, noted hallucianations last jhony, facility would [...] complaints of pain to L AKA, incision JACKIE with noelle, incision beta- dined. Hypoactive bowel sounds. Skin assessed, ST to L FA, mepilex foam in place. Coccyx/bilateral buttocks red but blanchable, zinc cream applied. MASD noted to gluteal split, left MEDICAL RECORDS SECRETARY. Inner ana area/labia with redness, powder ordered. Pt using bedpan. Pt updated on plan of care, still waiting on bed at [facility]. Alarm in place, call light within reach, [...] Plan 06/06/25: CC Update, no bed at [facility] this date, post acute form completed, s/p [...] 3:47 PM EDTAssociated Problem(s): Coronary arteriosclerosis in [place] artery // Hx of CABG Asa , [...] PM EDTAssociated Problem(s): Metabolic encephalopathy resolved * Tirno Montiel MD - 06/06/2025 3:47 PM EDTAssociated [...] on real time basis Coronary arteriosclerosis in [place] artery // Hx of CABG Asa , [...] Paroxysmal atrial fibrillation (HCC) Coronary arteriosclerosis in [place] artery // Hx of CABG Type 2 [...] with son on phone, no bed at [facility] this date, optimizing pain meds, post acute [...] encouragement Others Present/Assisting MIKE Shipman / MAHENDRA Ernstbroacher Information This progress note will serve as [...] CP -> PE ruled out 05/29 d/c SOLE TACKER 06/05 Awaiting bed at [facility] Precautions Therapy Precautions Yes Weight Bearing Status [...] per week. Time In / Time Out 1583-4174 (23 minutes) IP OT Individual Treatment Minutes [...] CP -> PE ruled out 05/29 d/c SOLE TACKER Pain Screening PT/OT Patient Currently in Pain [...] per week. Time In / Time Out 1812-6634 ([id number]) IP PT Treatment Minutes 23 The total [...] EDT Palliative Care Progress Note Consult Location: [facility] Length of Stay: 35 Assessment: Skyler [...] is slowly improving. She was transferred to [facility] from ICU last week. Decisional Capacity:Fully Decisional [...] 12:46 PM EDTAssociated Problem(s): Coronary arteriosclerosis in [place] artery // Hx of CABG Asa , [...] mellitus, without long-term current use of insulin ([facility]) S/P transmetatarsal amputation of foot, left (HCC) [...] on real time basis Coronary arteriosclerosis in [place] artery // Hx of CABG Asa , statin and renexa Paroxysmal atrial fibrillation (HCC) Acute on chronic heart failure with preserved ejection fraction (HCC) - 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 - had been holding coreg for lower BPs - restart now with hold parameters as BP increased Hypertension associated with diabetes ([facility]) - A1c 5.3 - diet controlled - [...] by specialist Goals of care, counseling/discussion Pancytopenia ([facility]) Acute respiratory failure with hypoxemia (HCC) Acute [...] Paroxysmal atrial fibrillation (HCC) Coronary arteriosclerosis in [place] artery // Hx of CABG Type 2 [...] RD,LD - 06/05/2025 11:[address] [facility] Nutrition Malnutrition Reassessment Evidence Supported Malnutrition Diagnosis: No malnutrition identified Nutrition Problem/Diagnosis: Nutrition Diagnosis Problem 1: Increased nutrient needs (specify) (kcal and pro) related to increased demand for energy/nutrients as evidenced by wounds. Status: Active nutrition diagnosis Nutrition Prescription: Kcals: 2830-3225 kcal (25-30 kcal/kg using 52.1 kg) Protein (g): 62-78 gm Protein needs based on: 1.2-1.5 gm/kg Fluid (ml): 1 mL/kcal Other (comment): Reviewed 06/05 Plan/Interventions: Meals and Snacks: Regular Medical Food Supplements: Glucerna Therapeutic Medical Food/Supplement Freq: 1xday - [place] Nutrition-Related Medication Management: Protonix Nutrition Education: Importance [...] Stool Occurrence: 1 Stool Appearance: Type 5 [place] Stool Chart Stool Color: Brown Stool Amount: [...] CP -> PE ruled out 05/29 d/c SOLE TACKER Precautions Therapy Precautions Yes Weight Bearing Status [...] per week. Time In / Time Out 5545-7562; 2377-1709 IP OT Individual Treatment Minutes 28 The [...] 1:59 PM EDTAssociated Problem(s): Coronary arteriosclerosis in [place] artery // Hx of CABG Asa , [...] controlled on oral meds Coronary arteriosclerosis in [place] artery // Hx of CABG Asa , [...] Paroxysmal atrial fibrillation (HCC) Coronary arteriosclerosis in [place] artery // Hx of CABG Type 2 [...] CP -> PE ruled out 05/29 d/c SOLE TACKER Pain Screening PT/OT Patient Currently in Pain [...] per week. Time In / Time Out 1701-9149 IP PT Treatment Minutes 38 The total [...] Up Treatment Attempt PT Subjective Comments #[id number] Others Present/Assisting patient requesting therapy return later [...] CP -> PE ruled out 05/29 d/c SOLE TACKER Precautions Precaution Info Given Yes;Contact;To use call [...] per week. Time In / Time Out 8973-1791 (23 minutes) IP OT Individual Treatment Minutes [...] CP -> PE ruled out 05/29 d/c SOLE TACKER Pain Screening PT/OT Patient Currently in Pain [...] per week. Time In / Time Out 9444-3502 ([id number]) IP PT Treatment Minutes 23 Updated PT note needed in next 24hrs? Request addressed by PT * Adry Alcazar - 06/03/2025 12:45 PM EDT 06/03/25 1245 Palliative interventions Spiritual support Spiritual support and counseling by palliative professional for patient Palliative Care Lamina Searcher Pastoral Care Interventions Spiritual-emotional support;Prayer Spiritual acuity Normal complexity Care Plan Follow up 1-2x/week (Palliative Care Lamina Searcher following) Length of time in minutes spent with pt/family/chart review 45 Referred By (Palliative Care follow up visit) Palliative Care sales record clerk follow up visit. Patient shared that she is experiencing a lot of pain, and endorses that it has been gradually increasing. She also expressed fear that the increase in pain is indicative of more infection. Patient informed food writer that she would like to speak with someone ab out what to expect with regard to pain going forward, as well as the risk of the infection returning. Lamina Searcher communicated pt's request to nurse/MAHENDRA Colbert. Patient continues to acknowledge that her treasure in the God is providing her comfort at this time. She was receptive to prayer, which food writer provided. Adry Alcazar, [facility] Lamina Searcher, Palliative Care * Stephen Pickard MD - [...] 7:21 AM EDTAssociated Problem(s): Coronary arteriosclerosis in [place] artery // Hx of CABG - History [...] approx 0.9-1.2. - stable Coronary arteriosclerosis in [place] artery // Hx of CABG - History [...] not ambulating at this time. Bed alarm trailers and motor homes salesperson light at reach encouraged to call for [...] 9:53 AM EDTAssociated Problem(s): Coronary arteriosclerosis in [place] artery // Hx of CABG - History [...] mellitus, without long-term current use of insulin ([facility]) - A1c 5.3 - diet controlled - not following FSBS Hypertension associated with diabetes ([facility]) - meds held for lows Stage 3a chronic kidney disease (HCC) - Baseline approx 0.9-1.2. - stable Coronary arteriosclerosis in [place] artery // Hx of CABG - History of CABG - continue lipitor, coreg, ranexa - no chest pain Anemia in other chronic diseases classified elsewhere Pancytopenia ([facility]) - b12, folate, iron ok. Trasferrin down [...] not ambulating at this time. Bed alarm trailers and motor homes salesperson light at reach encouraged to call for [...] 9:51 AM EDTAssociated Problem(s): Coronary arteriosclerosis in [place] artery // Hx of CABG - History [...] approx 0.9-1.2. - stable Coronary arteriosclerosis in [place] artery // Hx of CABG - History [...] speakerphone, discussed d/c plan, plan remains to [facility] per pt and son, possible bed over weekend per liaison, s/p AKA, will need ambulance transport, post acute previously completed, CC following. Completed by CC/SW Yes * Cely Montoya RN - 05/31/2025 12:45 PM EDT Pt refusing insulin, states that she is allergic to it. Made Dr. Pickard aware. * Melvin Elizondo RD,LD - 05/31/2025 11:[address] [facility] Nutrition Reassessment Evidence Supported Malnutrition Diagnosis: No malnutrition identified. Nutrition Problem/Diagnosis: Nutrition Diagnosis Problem 1: Increased nutrient needs (specify) (kcal and pro) related to increased demand for energy/nutrients as evidenced by wounds. Status: Active nutrition diagnosis Nutrition Prescription: Kcals: 4480-1320 kcal (25-30 kcal/kg using 52.1 kg) Protein [...] Occurrence: 1 Stool Appearance: (!) Type 6 [place] Stool Chart Stool Color: Brown Stool Amount: [...] #1 Pt agreeable to therapy Others Present/Assisting SHEET METAL SHOP FOREMAN Discharge Information This progress note will serve [...] CP -> PE ruled out 05/29 d/c SOLE TACKER Pain Screening PT/OT Patient Currently in Pain [...] 8:02 AM EDTAssociated Problem(s): Coronary arteriosclerosis in [place] artery // Hx of CABG - History [...] mellitus, without long-term current use of insulin ([facility]) - A1c 5.3 - diet controlled - not following FSBS Hypertension associated with diabetes ([facility]) - meds held for lows Chronic heart failure with preserved ejection fraction (HCC) - Echo 2023 normal EF. - Euvolemic on exam - repeat echo as above Stage 3a chronic kidney disease (HCC) - Baseline approx 0.9-1.2. - stable Coronary arteriosclerosis in [place] artery // Hx of CABG - History [...] with others and complete iv abx at [facility] Estimated Date of Discharge: 05/31/2025 VTE Prophylaxis: [...] CP -> PE ruled out 05/29 d/c SOLE TACKER Precautions Precaution Info Given Yes;To use call [...] Functional Percentage 59.67 AM PAC Daily Activity [facility] G Code Modifier CK Education Education To [...] per week. Time In / Time Out 1540-2969 (41 minutes) IP OT Individual Treatment Minutes [...] 11:39 AM EDTAssociated Problem(s): Coronary arteriosclerosis in [place] artery // Hx of CABG - History [...] approx 0.9-1.2. - stable Coronary arteriosclerosis in [place] artery // Hx of CABG - History [...] MD 05/30/2025 11:34 AM * Nicole Zaidi, PHARMACY DIRECTOR - 05/30/2025 9:03 AM EDT 05/30/25 [...] over to left side of bed for food writer to have better angle to wrapstump; (D) [...] RD,LD - 05/29/2025 3:[address] [facility] Nutrition Reassessment Nutrition Problem/Diagnosis: Nutrition Diagnosis Problem 1: Increased nutrient needs (specify) (kcal and pro) related to increased demand for energy/nutrients as evidenced by wounds. Status: Active nutrition diagnosis Nutrition Prescription: Kcals: 7511-6096 kcal (25-30 kcal/kg using 52.1 kg) Protein [...] Stool Occurrence: 1 Stool Appearance: Type 5 [place] Stool Chart, Type 4 [place] Stool Chart Stool Color: Brown Stool Amount: [...] pain remains an issue. No better with SOLE TACKER. Will stop that and adjust prns * [...] pain remains an issue. No better with SOLE TACKER. Will stop that and adjust prns * [...] 11:24 AM EDTAssociated Problem(s): Coronary arteriosclerosis in [place] artery // Hx of CABG - History [...] pain remains an issue. No better with SOLE TACKER. Will stop that and adjust prns PAD [...] approx 0.9-1.2. - stable Coronary arteriosclerosis in [place] artery // Hx of CABG - History [...] Type Follow Up Treatment Attempt Patient Room/Unit 9269 Therapy delay reason Patient not feeling well (Pt in pain, attempting to rest - pt declines therapy at this time. Will follow up as time allows.) * Rhina Duval RN - 05/29/2025 10:27 AM EDT WOUND CARE Consulted for right nostril and bilateral ears. Pt seen on 5D. Upon assessment, pt with SOLE TACKER pump and nasal cannula in place. Bilateral ears are red and blanchable. No redness or irritation noted to nostrils. Recommend to follow medical planner prevention protocol, can utilize oxygen tubing foams or mepilex lite foam. Encourage continuation of preventative interventions such as frequent repositioning/ scheduled turns, as well as offloading bilateral heels. Patient is on a low air loss sleep surface to manage the microclimate of the skin (ensure function is on). Orders updated in [facility]. Will not actively follow [...] has C/O left leg pain managed with SOLE TACKER pump infusing Hydromorphone and at midnight she [...] Bladder armstrong done, 454 ml urine noted, RADIOLOGY RN notified, instructed to do straight cath until [...] Rhythm: atrial fibrillation - controlled Rate: tachycardia Adams: normal Ectopy: premature ventricular contractions (infrequent) Conduction: [...] has received blood products, and remains on SOLE TACKER for pain, and multiple antibiotics. Pt meets criteria for LTACH level of care. Sw has sent proactive referral to LTACH to evaluate for appropriateness. Sw has sent family information on LTACH level of care, Sw met with pt and resources on LTACH level of care. Proactive referral sent to ltach to evaluate for appropriateness. * Marj Peña [facility] - 05/28/2025 2:14 PM EDT Pharmacy Note [...] EDT Palliative Care Progress Note [facility] Hospital Length of Stay: 27 Assessment: Skyler [...] Oxy-IR 15mg q4 hrs prn + Hydromorphone SOLE TACKER Pump(started today per ICU team) Opioid Induced Constipation: Polyethylene glycol 17 g BID PRN Psychosocial distress: anticipatory grief, change in QoL and loss on independence. Spiritual distress: See [facility] Lamina Searcher note for additional details. [facility] will continue [...] Patient seen with our HPM fellow and Lamina Searcherankush Rider and agree with Dr. Steen's notes. [...] control now the issue again. Will start SOLE TACKER today to attempt to quantify narcotic requirement. 2. Hypotension, improved. Stable 3. History of HFpEF. 4. Peripheral artery disease, holding full anticoagulation until hemoglobin stabilizes. 5. Anemia, still downtrending. Received 1 unit of packed red blood cells 05/26. 6. Acute hypoxemic respiratory failure, improved/resolved, now on room air. 7. CKD, creatinine is stable, continue to avoid nephrotoxins 8. 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 Diabetic foot infection status post [...] to go somewhere that can manage her SOLE TACKER. When she transfers, critical care will sign [...] AM EDT Daily Status Update Add dilaudid SOLE TACKER Transfer? Family Does the patient have family present? Yes, offer family to join rounds Ventilator SpO2: 96 % (05/28/25 0400) Ventilator: No Airway LDAs None Quintanilla Score: (not recorded) No results for input(s): PFRATIO in the last 72 hours. Pain Pain controlled in the last 24 hours: No: adding SOLE TACKER Pain/Sedation Medications fentaNYL (SUBLIMAZE) injection 50 mcg [...] 8:08 AM EDTAssociated Problem(s): Coronary arteriosclerosis in [place] artery // Hx of CABG - History [...] approx 0.9-1.2. - stable Coronary arteriosclerosis in [place] artery // Hx of CABG - History [...] palliative professional for caregiver/family members Palliative Care Lamina Searcher Pastoral Care Interventions Spiritual-emotional support;Prayer Spiritual acuity Normal complexity Care Plan Follow up 1-2x/week Length of time in minutes spent with pt/family/chart review 15 Referred By ([facility] Lamina Searcher follow up visit.) Palliative Care sales record clerk follow up visit post surgery. Patient's son/Edgar [...] as well as gratitudefor her family's support. Senior Trial Attorney prayed with pt and family and will continue to follow. Adry Alcazar, [facility] Lamina Searcher, Palliative Care * Robby Thomas MD - 05/27/2025 3:40 PM EDT Palliative Care Progress Note Consult Location: [facility] Length of Stay: 26 Assessment: Skyler [...] nephrotoxins 8. 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 Diabetic foot infection status post [...] bilateral pleural effusions. * Kesha Sams, [facility] - 05/27/2025 2:27 PM EDT Pharmacy Note [...] per week. Time In / Time Out [id number] IP OT Individual Treatment Minutes 38 The [...] RD,LD - 05/27/2025 9:[address] [facility] Nutrition Malnutrition Reassessment Evidence Supported Diagnosis: No malnutrition identified In the context of: Nutrition Problem/Diagnosis: Nutrition Diagnosis Problem 1: Increased nutrient needs (specify) (kcal and pro) related to increased demand for energy/nutrients as evidenced by wounds. Status: Active nutrition diagnosis Nutrition Prescription: Kcals: 3548-9230 kcal (25-30 kcal/kg, based on 54.4 kg) [...] Stool Occurrence: 1 Stool Appearance: Type 5 [place] Stool Chart Stool Color: Brown Stool Amount: [...] 9:42 AM EDTAssociated Problem(s): Coronary arteriosclerosis in [place] artery // Hx of CABG - History [...] approx 0.9-1.2. - stable Coronary arteriosclerosis in [place] artery // Hx of CABG - History [...] and verified by MAHENDRA Perez. A 4 comoran double lumen PICC cut at the 38 [...] Paroxysmal atrial fibrillation (HCC) Coronary arteriosclerosis in 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 Below is a summary of my pertinent independent evaluation and findings in addition to the assessment and plan formulated by the physician quality assurance assistant. L AKA dressing changed Stump appears [...] 9:50 AM EDTAssociated Problem(s): Coronary arteriosclerosis in [place] artery // Hx of CABG - History [...] (HCC) S/P transmetatarsal amputation of foot, left ([facility]) - Wound dehiscence over previous left TMA [...] mellitus, without long-term current use of insulin ([facility]) - A1c 5.3 - diet controlled - not following FSBS Hypertension associated with diabetes ([facility]) - at goal on current rx Chronic heart failure with preserved ejection fraction (HCC) - Echo 2023 normal EF. - Euvolemic on exam Stage 3a chronic kidney disease (HCC) - Baseline approx 0.9-1.2. - stable Coronary arteriosclerosis in [place] artery // Hx of CABG - History [...] 10:33 AM EDTAssociated Problem(s): Coronary arteriosclerosis in [place] artery // Hx of CABG - History [...] up just a little. Smear ok * Stehpen Pickard MD - 05/25/2025 10:28 AM EDT [...] approx 0.9-1.2. - stable Coronary arteriosclerosis in [place] artery // Hx of CABG - History [...] 7:56 AM EDTAssociated Problem(s): Coronary arteriosclerosis in [place] artery // Hx of CABG - History [...] NOTE Assessment & Plan Diabetic foot infection ([facility]) S/P transmetatarsal amputation of foot, left ([facility]) - Wound dehiscence over previous left TMA [...] mellitus, without long-term current use of insulin ([facility]) - A1c 5.3 - diet controlled - not following FSBS Hypertension associated with diabetes ([facility]) - at goal on current rx Chronic heart failure with preserved ejection fraction (HCC) - Echo 2023 normal EF. - Euvolemic on exam Stage 3a chronic kidney disease (HCC) - Baseline approx 0.9-1.2. - stable Coronary arteriosclerosis in [place] artery // Hx of CABG - History [...] professional for inpatient treatment team Palliative Care Lamina Searcher Pastoral Care Interventions Spiritual-emotional support;Prayer Spiritual acuity Normal complexity Care Plan ([facility] Lamina Searcher will continue to follow.) Length of time in minutes spent with pt/family/chart review 30 Referred By (Palliative Care follow up.) Palliative Care sales record clerk visited with patient, as well as her sister/Sarah and [id number]/Scot. Patient shared that her conversation with Dr. [...] and family were receptive to prayer, which food writer offered. [facility] sales record clerk will continue to follow. Adry Alcazar, [facility] Lamina Searcher, Palliative Care * Nicole Zaidi PTA - [...] 11:46 AM EDTAssociated Problem(s): Coronary arteriosclerosis in [place] artery // Hx of CABG - History [...] approx 0.9-1.2. - stable Coronary arteriosclerosis in [place] artery // Hx of CABG - History [...] not wanting to have LAKA. Per [facility], she spoke with pt and she is [...] placement consent form previouslycompleted. Pharmacy updated in [employer]. Pt will need ambulance transport at discharge. [...] Paroxysmal atrial fibrillation (HCC) Coronary arteriosclerosis in [place] artery // Hx of CABG Type 2 [...] was seen in coordination with the physician quality assurance assistant/nurse practitioner. Had long discussion with patient [...] like to obtain one pre-op. NPO past vt. Lawrence Wolf MD * Lauren Turk OT - 05/23/2025 8:55 AM EDT 05/23/25 0855 OT Subjective Note Type Chart Review;Follow Up Treatment Attempt Patient Room/Unit 3318 Therapy delay reason Awaiting post procedure orders (comment) Clinical Course Noted planned AKA 05/24/25 * Leti Jefferson APRN - 05/22/2025 3:56 PM EDT Palliative Care Progress Note Consult Location: [facility] Length of Stay: 21 Assessment: Skyler [...] loss on independence. Spiritual distress: See [facility] Lamina Searcher note for additional details. [facility] will continue [...] patient sharing she was not familiar with. [facility] has offered [facility] meeting with her sons involvement to help [...] Adry Alcazar 05/22/2025 3:47 PM EDT 05/22/25 4543 Palliative interventions Spiritual support Spiritual support and counseling by palliative professional for patient Palliative Care Social Work Total time in minutes spent in the provision of Palliative Care 60 Palliative Care Lamina Searcher Pastoral Care Interventions Goals of care counseling/education;Spiritual- emotional support Spiritual acuity Normal complexity Care Plan ([facility] Lamina Searcher will follow up 05/23) Length of time in minutes spent with pt/family/chart review 60 Referred By (Palliative Care follow up) Palliative Care RADIOLOGY RN/B.Jefferson and Lamina Searcher follow up with patient regarding her decision [...] look like after the amputation. After Palliative RADIOLOGY RN/Jefferson explained the possibilities of being bed or wheelchair bound, pt expressed fear - in both words and facial expression - that this would be a horrible way to live if it became reality. Patient reported that she has not shared her fears with sons. Lamina Searcher encouraged her to think about further conversation with them in light of this new worry. Patient stated that she will give this some thought today and tomorrow. Senior Trial Attorney committed to returning to bedside on 05/23 in the morning to see how pt feels about a possible family meeting. Patient confirmed that her treasure remains strong, and that she trusts that the Lord will be with herin whatever path she chooses. Adry Alcazar, [facility] Lamina Searcher, Palliative Care * Coleman Moss COTA - [...] Where Assessed Edge of bed Feeding Assistance Moderate;front office supervisor/use appropriate utensil;Bring food/cup to mouth;Scoop/spear food with [...] therapy recommended. Time In / Time Out [id number] IP OT Individual Treatment Minutes 42 * [...] 10:29 AM EDTAssociated Problem(s): Coronary arteriosclerosis in [place] artery // Hx of CABG - History [...] NOTE Assessment & Plan Diabetic foot infection ([facility]) S/P transmetatarsal amputation of foot, left ([facility]) - Wound dehiscence over previous left TMA [...] for amputation as above Paroxysmal atrial fibrillation ([facility]) - 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 - rate controlled on coreg Type 2 diabetes mellitus, without long-term current use of insulin ([facility]) - A1c 5.3 - diet controlled - not following FSBS Hypertension associated with diabetes ([facility]) - at goal on current rx at 128/67 Chronic heart failure with preserved ejection fraction ([facility]) - Echo 2023 normal EF. - Euvolemic on exam Stage 3a chronic kidney disease ([facility]) - Baseline approx 0.9-1.2. - stable Coronary arteriosclerosis in [place] artery // Hx of CABG - History [...] Stephen Pickard MD 05/22/2025 10:27 AM * Felciia Tripp RD,LD - 05/22/2025 10:[address] [facility] Nutrition Reassessment Nutrition Problem/Diagnosis: Nutrition Diagnosis Problem 1: Increased nutrient needs (specify) (kcal and pro) related to increased demand for energy/nutrients as evidenced by wounds. Status: New nutrition diagnosis Nutrition Prescription: Kcals: 3574-3646 kcal (25-30 kcal/kg, based on 54.4 kg) [...] Stool Occurrence: 1 Stool Appearance: Type 5 [place] Stool Chart Stool Color: Brown Stool Amount: [...] for walker. Pt then transfered bed to [facility] back to bed. [...] therapy recommended. Time In / Time Out [id number] IP PT Treatment Minutes 26 The total [...] on AC d/t hx of SAH - PHARMACY DIRECTOR coreg * Stephen Pickard MD - [...] 1:15 PM EDTAssociated Problem(s): Coronary arteriosclerosis in [place] artery // Hx of CABG - History [...] NOTE Assessment & Plan Diabetic foot infection ([facility]) S/P transmetatarsal amputation of foot, left ([facility]) - Wound dehiscence over previous left TMA [...] following - severe disease Paroxysmal atrial fibrillation ([facility]) - Heart rate controlled. - 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 - PHARMACY DIRECTOR coreg Type 2 diabetes mellitus, without long-term current use of insulin ([facility]) - A1c 5.3 - diet controlled - not following FSBS Hypertension associated with diabetes ([facility]) - at goal on current rx Chronic heart failure with preserved ejection fraction ([facility]) - Echo 2023 normal EF. - Euvolemic on exam Stage 3a chronic kidney disease ([facility]) - Baseline approx 0.9-1.2. - stable Coronary arteriosclerosis in [place] artery // Hx of CABG - History [...] arterial studies 05/02 with significant PAD - PARENT TRAINER stenosis Patent popliteal and TPT with severe stenosis Patent proximal PHARMACY DIRECTOR but occluded distally without reconstitution Patent DAREN with multifocal severe stenosis, occlusion at the level of the ankle and no distal reconstitution Significant small vessel disease in L foot * Carlos Manuel Landaverde II, MD - 05/20/2025 12:54 PM EDTAssociated Problem(s): Paroxysmal atrial fibrillation (HCC) Heart rate controlled. 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 - PHARMACY DIRECTOR coreg - cardiac monitoring -Rate controlled 05/20/25 * Carlos Manuel Landaverde II, MD - 05/20/2025 12:54 PM EDTAssociated Problem(s): Type 2 diabetes mellitus, without long-term current use of insulin (HCC) Last A1c 4.8 in 03/2024. PHARMACY DIRECTOR meds include none. - hold off on FSBS, correctional algorithm - rpt A1c 5.3 - stable 05/20/25 * Carlos Manuel Landaverde II, MD - 05/20/2025 12:54 PM EDTAssociated Problem(s): Hypertension associated with diabetes (HCC) Well controlled. - PHARMACY DIRECTOR coreg - monitor and adjust as needed -BP stable 05/20/25 * Carlos Manuel Landaverde II, MD - 05/20/2025 12:54 PM EDTAssociated Problem(s): Acute on chronic heart failure with preserved ejection fraction (HCC) Echo 2023 normal EF. Euvolemic on exam - monitor I/O, daily weights - diuresis: PHARMACY DIRECTOR lasix on hold - PHARMACY DIRECTOR coreg -Stable 05/20/25 * Carlos Manuel Landaverde II, MD - 05/20/2025 12:54 PM EDTAssociated Problem(s): Stage 3a chronic kidney disease (HCC) Cre 1.05 at admit. Baseline approx 0.9-1.2. 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 artery // Hx of CABG History of [...] for the pt to go back to [facility]. Pt will need an ambulance transport.Pharmacy [...] arterial studies 05/02 with significant PAD - PARENT TRAINER stenosis Patent popliteal and TPT with severe stenosis Patent proximal PHARMACY DIRECTOR but occluded distally without reconstitution Patent DAREN with multifocal severe stenosis, occlusion at the level of the ankle and no distal reconstitution Significant small vessel disease in L foot Paroxysmal atrial fibrillation (HCC) Heart rate controlled. 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 - PHARMACY DIRECTOR coreg - cardiac monitoring -Rate controlled 05/20/25 Type 2 diabetes mellitus, without long-term current use of insulin (HCC) Last A1c 4.8 in 03/2024. PHARMACY DIRECTOR meds include none. - hold off on FSBS, correctional algorithm - rpt A1c 5.3 - stable 05/20/25 Hypertension associated with diabetes (HCC) Well controlled. - PHARMACY DIRECTOR coreg - monitor and adjust as needed -BP stable 05/20/25 Chronic heart failure with preserved ejection fraction (HCC) Echo 2023 normal EF. Euvolemic on exam - monitor I/O, daily weights - diuresis: PHARMACY DIRECTOR lasix on hold - PHARMACY DIRECTOR coreg -Stable 05/20/25 Stage 3a chronic kidney disease (HCC) Cre 1.05 at admit. Baseline approx 0.9-1.2. -Cr 0.[address] [place] [place] artery // Hx of CABG History of [...] Paroxysmal atrial fibrillation (HCC) Coronary arteriosclerosis in [place] artery // Hx of CABG Type 2 [...] Intake/Output Summary (Last 24 hours) at 05/20/2025 0993 Last data filed at 05/20/2025 0206 Gross [...] Paroxysmal atrial fibrillation (HCC) Coronary arteriosclerosis in [place] artery // Hx of CABG Type 2 [...] insulin (HCC) Last A1c 4.8 in 03/2024. PHARMACY DIRECTOR meds include none. - hold off [...] and Coping Resources Meaning, ez, support in scientologist practices;Meaningful relationship or connection with God Care Plan Plan for Follow-Up Lamina Searcher(s) remains available as needed Add to Follow Up List No Zurdo Dennison Lamina Searcher, Pastoral and Spiritual Care For non-urgent requests, please place a Pastoral Care consult in [facility]. For all urgent matters, please send an urgent [facility] Secure Chat to the Pastoral Care group at your location. Between 11pm and 7am, please use On-Call Finder to send an [facility] Secure Chat to the on-call sales record clerk. Pastoral Care office phone numbers: EDG/COV/GRT [phone], [place]INA [phone], FTT [phone], DBN [phone] * Carlos Manuel Landaverde II, MD - 05/19/2025 11:25 AM EDTAssociated Problem(s): PAD (peripheral artery disease) History of angiogram 01/2025. - vascular consulted - arterial studies 05/02 with significant PAD - PARENT TRAINER stenosis Patent popliteal and TPT with severe stenosis Patent proximal PHARMACY DIRECTOR but occluded distally without reconstitution Patent DAREN with multifocal severe stenosis, occlusion at the level of the ankle and no distal reconstitution Significant small vessel disease in L foot * Carlos Manuel Landaverde II, MD - 05/19/2025 11:25 AM EDTAssociated Problem(s): Paroxysmal atrial fibrillation (HCC) Heart rate controlled. 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 - PHARMACY DIRECTOR coreg - cardiac monitoring -Rate controlled 05/19/25 * Carlos Manuel Landaverde II, MD - 05/19/2025 11:25 AM EDTAssociated Problem(s): Hypertension associated with diabetes (HCC) Well controlled. - PHARMACY DIRECTOR coreg - monitor and adjust as needed -BP stable 05/19/25 * Carlos Manuel Landaverde II, MD - 05/19/2025 11:25 AM EDTAssociated Problem(s): Acute on chronic heart failure with preserved ejection fraction (HCC) Echo 2023 normal EF. Euvolemic on exam - monitor I/O, daily weights - diuresis: PHARMACY DIRECTOR lasix on hold - PHARMACY DIRECTOR coreg -Stable 05/19/25 * Carlos Manuel Landaverde II, MD - 05/19/2025 11:25 AM EDTAssociated Problem(s): Coronary arteriosclerosis in [place] artery // Hx of CABG History of [...] arterial studies 05/02 with significant PAD - PARENT TRAINER stenosis Patent popliteal and TPT with severe stenosis Patent proximal PHARMACY DIRECTOR but occluded distally without reconstitution Patent DAREN with multifocal severe stenosis, occlusion at the level of the ankle and no distal reconstitution Significant small vessel disease in L foot Paroxysmal atrial fibrillation (HCC) Heart rate controlled. 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 - PHARMACY DIRECTOR coreg - cardiac monitoring -Rate controlled 05/19/25 Type 2 diabetes mellitus, without long-term current use of insulin (HCC) Last A1c 4.8 in 03/2024. PHARMACY DIRECTOR meds include none. - hold off on FSBS, correctional algorithm - rpt A1c 5.3 - stable 05/19/25 Hypertension associated with diabetes (HCC) Well controlled. - PHARMACY DIRECTOR coreg - monitor and adjust as needed -BP stable 05/19/25 Chronic heart failure with preserved ejection fraction (HCC) Echo 2023 normal EF. Euvolemic on exam - monitor I/O, daily weights - diuresis: PHARMACY DIRECTOR lasix on hold - PHARMACY DIRECTOR coreg -Stable 05/19/25 Stage 3a chronic kidney disease (HCC) Cre 1.05 at admit. Baseline approx 0.9-1.2. -repeat bmp Coronary arteriosclerosis in [place] artery // Hx of CABG History of [...] Paroxysmal atrial fibrillation (HCC) Coronary arteriosclerosis in [place] artery // Hx of CABG Type 2 [...] visit 05/18/25 Visited With Patient Visited By Lamina Searcher Referral Source Lamina Searcher Reason for Visit Spiritual, emotional or social support Patient Assessment Patient Appears Tearful;Positive (Skyler has a strong treasure in God, prays often, appreciates prayer and PC support) Patient Gnosticism at Registration Zoroastrian Patient Gnosticism Upon Assessment Zoroastrian Spiritual Strengths and Coping Resources Meaningful relationship or connection with God Spiritual and Emotional Concerns Fear (fear concerning upcoming procedure; despite fears, Skyler shared she trusts God ultimately, no matter what happens) Patient Spiritual Wellbeing Appears to be coping adequately Interventions with Patient Relationship Building Interventions Cultivated a relationship of care and support;Listened empathetically Gnosticist Interventions Prayer with patient or family Exploration Interventions Helped identify and clarify feelings or concerns Outcomes Expressed Outcomes Appreciative of prayer/ritual;Appreciative of visit;Able to discuss emotions Care Plan Plan for Follow-Up Lamina Searcher(s) will continue to follow throughout admission Add to Follow Up List Yes Khalida Schultz Lamina Searcher, Pastoral and Spiritual Care For non-urgent requests, please place a Pastoral Care consult in [facility]. For all urgent matters, please send an urgent [facility] Secure Chat to the Pastoral Care group at your location. Between 11pm and 7am, please use On-Call Finder to send an [facility] Secure Chat to the on-call sales record clerk. Pastoral Care office phone numbers: EDG/COV/GRT [phone], [place] [phone], FTT [phone], DBN [phone] * Carlos Manuel Landaverde II, MD - [...] arterial studies 05/02 with significant PAD - PARENT TRAINER stenosis Patent popliteal and TPT with severe stenosis Patent proximal PHARMACY DIRECTOR but occluded distally without reconstitution Patent DAREN with multifocal severe stenosis, occlusion at the level of the ankle and no distal reconstitution Significant small vessel disease in L foot * Carlos Manule Landaverde II, MD - 05/18/2025 8:38 AM EDTAssociated Problem(s): Paroxysmal atrial fibrillation (HCC) Heart rate controlled. 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 - PHARMACY DIRECTOR coreg - cardiac monitoring -Rate controlled 05/18/25 * Carlos Manuel Landaverde II, MD - 05/18/2025 8:38 AM EDTAssociated Problem(s): Type 2 diabetes mellitus, without long-term current use of insulin (HCC) Last A1c 4.8 in 03/2024. PHARMACY DIRECTOR meds include none. - hold off on FSBS, correctional algorithm - rpt A1c 5.3 * Carlos Manuel Landaverde II, MD - 05/18/2025 8:38 AM EDTAssociated Problem(s): Hypertension associated with diabetes (HCC) Well controlled. - PHARMACY DIRECTOR coreg - monitor and adjust as needed -BP stable 05/18/25 * Carlos Manuel Landaverde II, MD - 05/18/2025 8:38 AM EDTAssociated Problem(s): Acute on chronic heart failure with preserved ejection fraction (HCC) Echo 2023 normal EF. 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 artery // Hx of CABG History of [...] arterial studies 05/02 with significant PAD - PARENT TRAINER stenosis Patent popliteal and TPT with severe stenosis Patent proximal PHARMACY DIRECTOR but occluded distally without reconstitution Patent DAREN with multifocal severe stenosis, occlusion at the level of the ankle and no distal reconstitution Significant small vessel disease in L foot Paroxysmal atrial fibrillation (HCC) Heart rate controlled. 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 - PHARMACY DIRECTOR coreg - cardiac monitoring -Rate controlled 05/18/25 Type 2 diabetes mellitus, without long-term current use of insulin ([facility]) Last A1c 4.8 in 03/2024. PHARMACY DIRECTOR meds include none. - hold off on FSBS, correctional algorithm - rpt A1c 5.3 Hypertension associated with diabetes ([facility]) Well controlled. - PHARMACY DIRECTOR coreg - monitor and adjust as needed -BP stable 05/18/25 Chronic heart failure with preserved ejection fraction ([facility]) Echo 2023 normal EF. Euvolemic on exam - monitor I/O, daily weights - diuresis: PHARMACY DIRECTOR lasix on hold - PHARMACY DIRECTOR coreg -Stable 05/18/25 Stage 3a chronic kidney disease ([facility]) Cre 1.05 at admit. Baseline approx 0.9-1.2. 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 artery // Hx of CABG History of [...] Paroxysmal atrial fibrillation (HCC) Coronary arteriosclerosis in [place] artery // Hx of CABG Type 2 diabetes mellitus, without long-term current use of insulin ([facility]) Hypertension associated with diabetes (HCC) Subjective: Required [...] RD,TIFFANY - 05/17/2025 2:[address] [facility] Nutrition Malnutrition Reassessment Evidence Supported Diagnosis: No malnutrition identified Nutrition Prescription: Kcals: 5464-9414 kcal (25-30 kcal/kg, based on 54.4 kg) [...] therapy recommended. Time In / Time Out [id number]/[id number] IP OT Individual Treatment Minutes 33 * [...] therapy recommended. Time In / Time Out [id number] IP PT Treatment Minutes 39 The total [...] 1:37 PM EDTAssociated Problem(s): Coronary arteriosclerosis in [place] artery // Hx of CABG History of [...] sister. NORA called and updated Roxanna with [facility]. They will still continue to follow. Post acute placement consent form previously completed. Pharmacy updated in [employer]. Pt will need ambulance transport at discharge. [...] arterial studies 05/02 with significant PAD - PARENT TRAINER stenosis Patent popliteal and TPT with severe stenosis Patent proximal PHARMACY DIRECTOR but occluded distally without reconstitution Patent DAREN with multifocal severe stenosis, occlusion at the level of the ankle and no distal reconstitution Significant small vessel disease in L foot * Carlos Manuel Landaverde II, MD - 05/17/2025 9:16 AM EDTAssociated Problem(s): Paroxysmal atrial fibrillation (HCC) Heart rate controlled. 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 - PHARMACY DIRECTOR coreg - cardiac monitoring -Rate controlled 05/17/25 * Carlos Manuel Landaverde II, MD - 05/17/2025 9:16 AM EDTAssociated Problem(s): Type 2 diabetes mellitus, without long-term current use of insulin (HCC) Last A1c 4.8 in 03/2024. PHARMACY DIRECTOR meds include none. - hold off on FSBS, correctional algorithm - rpt A1c 5.3 * Carlos Manuel Landaverde II, MD - 05/17/2025 9:16 AM EDTAssociated Problem(s): Hypertension associated with diabetes (HCC) Well controlled. - PHARMACY DIRECTOR coreg - monitor and adjust as needed -BP stable 05/17/25 * Carlos Manuel Landaverde II, MD - 05/17/2025 9:16 AM EDTAssociated Problem(s): Acute on chronic heart failure with preserved ejection fraction (HCC) Echo 2023 normal EF. Euvolemic on exam - monitor I/O, daily weights - diuresis: PHARMACY DIRECTOR lasix on hold - PHARMACY DIRECTOR coreg -Stable 05/17/25 * Carlos Manuel [...] arterial studies 05/02 with significant PAD - PARENT TRAINER stenosis Patent popliteal and TPT with severe stenosis Patent proximal PHARMACY DIRECTOR but occluded distally without reconstitution Patent DAREN with multifocal severe stenosis, occlusion at the level of the ankle and no distal reconstitution Significant small vessel disease in L foot Paroxysmal atrial fibrillation (HCC) Heart rate controlled. 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 - PHARMACY DIRECTOR coreg - cardiac monitoring -Rate controlled 05/17/25 Type 2 diabetes mellitus, without long-term current use of insulin ([facility]) Last A1c 4.8 in 03/2024. PHARMACY DIRECTOR meds include none. - hold off on FSBS, correctional algorithm - rpt A1c 5.3 Hypertension associated with diabetes ([facility]) Well controlled. - PHARMACY DIRECTOR coreg - monitor and adjust as needed -BP stable 05/17/25 Chronic heart failure with preserved ejection fraction ([facility]) Echo 2023 normal EF. Euvolemic on exam - monitor I/O, daily weights - diuresis: PHARMACY DIRECTOR lasix on hold - PHARMACY DIRECTOR coreg -Stable 05/17/25 Stage 3a chronic kidney disease ([facility]) Cre 1.05 at admit. Baseline approx 0.9-1.2. -Cr stable 0.8 , repeat sp OR Coronary arteriosclerosis in [place] artery // Hx of CABG History of [...] Paroxysmal atrial fibrillation (HCC) Coronary arteriosclerosis in [place] artery // Hx of CABG Type 2 diabetes mellitus, without long-term current use of insulin ([facility]) Hypertension associated with diabetes ([facility]) Subjective: Resting, NAD Objective: BP 125/77 Pulse [...] Ordered Regular Diet DIET EFFECTIVE NOW 05/10/25 1003 Comments: Pt transfer to unit A/O VSS [...] arterial studies 05/02 with significant PAD - PARENT TRAINER stenosis Patent popliteal and TPT with severe stenosis Patent proximal PHARMACY DIRECTOR but occluded distally without reconstitution Patent DAREN with multifocal severe stenosis, occlusion at the level of the ankle and no distal reconstitution Significant small vessel disease in L foot * Carlos Manuel Landaverde II, MD - 05/16/2025 2:50 PM EDTAssociated Problem(s): Paroxysmal atrial fibrillation (HCC) Heart rate controlled. 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 - PHARMACY DIRECTOR coreg - cardiac monitoring -Rate controlled 05/16/25 * Carlos Manuel Landaverde II, MD - 05/16/2025 2:50 PM EDTAssociated Problem(s): Type 2 diabetes mellitus, without long-term current use of insulin (HCC) Last A1c 4.8 in 03/2024. PHARMACY DIRECTOR meds include none. - hold off on FSBS, correctional algorithm - rpt A1c 5.3 * Carlos Manuel Landaverde II, MD - 05/16/2025 2:50 PM EDTAssociated Problem(s): Hypertension associated with diabetes (HCC) Well controlled. - PHARMACY DIRECTOR coreg - monitor and adjust as needed -BP stable 05/16/25 * Carlos Manuel Landaverde II, MD - 05/16/2025 2:50 PM EDTAssociated Problem(s): Acute on chronic heart failure with preserved ejection fraction (HCC) Echo 2023 normal EF. Euvolemic on exam - monitor I/O, daily weights - diuresis: PHARMACY DIRECTOR lasix on hold - PHARMACY DIRECTOR coreg -Stable 05/16/25 * CarlosM anuel Landaverde II, MD - 05/16/2025 2:50 PM EDTAssociated Problem(s): Stage 3a chronic kidney disease (HCC) Cre 1.05 at admit. Baseline approx 0.9-1.2. -Cr stable 0.8 * Carlos Manuel Landaverde II, MD - 05/16/2025 2:50 PM EDTAssociated Problem(s): Coronary arteriosclerosis in [place] artery // Hx of CABG History of [...] arterial studies 05/02 with significant PAD - PARENT TRAINER stenosis Patent popliteal and TPT with severe stenosis Patent proximal PHARMACY DIRECTOR but occluded distally without reconstitution Patent DAREN with multifocal severe stenosis, occlusion at the level of the ankle and no distal reconstitution Significant small vessel disease in L foot Paroxysmal atrial fibrillation (HCC) Heart rate controlled. 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 - PHARMACY DIRECTOR coreg - cardiac monitoring -Rate controlled 05/16/25 Type 2 diabetes mellitus, without long-term current use of insulin ([facility]) Last A1c 4.8 in 03/2024. PHARMACY DIRECTOR meds include none. - hold off on FSBS, correctional algorithm - rpt A1c 5.3 Hypertension associated with diabetes ([facility]) Well controlled. - PHARMACY DIRECTOR coreg - monitor and adjust as needed -BP stable 05/16/25 Chronic heart failure with preserved ejection fraction ([facility]) Echo 2023 normal EF. Euvolemic on exam - monitor I/O, daily weights - diuresis: PHARMACY DIRECTOR lasix on hold - PHARMACY DIRECTOR coreg -Stable 05/16/25 Stage 3a chronic kidney disease (HCC) Cre 1.05 at admit. Baseline approx 0.9-1.2. -Cr stable 0.[address] [place] // Hx of CABG History of [...] Paroxysmal atrial fibrillation (HCC) Coronary arteriosclerosis in [place] artery // Hx of CABG Type 2 [...] Discussed discharge plans with Care Team at [facility] Yes, with nurse in attendance;Yes, with doctor in attendance Patient's goals for recovery Return to Prior Level of Functioning;Porter in self-care Discharge to SNF;Acute Rehab Actual Discharge Plan 05/16/2025-NORA UPDATE-Sw reviewed chart. NORA met with patient bedside. Discusseddischarge plan. She stated that she has decided to have surgery. Patient's plan at this time is to [facility] with ambulance transport. NORA will continue to [...] therapy recommended. Time In / Time Out [id number] IP PT Treatment Minutes 23 The total [...] visit 05/15/25 Visited With Patient Visited By Lamina Searcher Reason for Visit Decision making;Spiritual, emotional or social support;Follow-up Patient Assessment Patient Appears Anxious;Fearful;Expressed discomfort;Lonely;Pessimistic;Resistant;Sad;Tearful;Tired;Weary Patient Gnosticism at Registration Zoroastrian Spiritual Strengths and Coping Resources Determination;Accepts help from others;Meaning, ez, support in scientologist practices;Meaningful relationship or connection with God;Self-reflection;Resilience or adaptability;Realistic sense of self;Spends time in prayer/spiritual practices;Support system Spiritual and Emotional Concerns Fear;Concerns around dealth/dying;Concerned for family coping/well-being;Coping with chronic illness;Discouragement;Struggling to find meaning in pain/suffering;Processing decrease in mobility and independence;Sadness Patient Spiritual Wellbeing Moderate Acuity - Spiritual Distress Interventions with Patient Relationship Building Interventions Cultivated a relationship of care and support;Listened empathetically Gnosticist Interventions Prayer with patient or family Exploration Interventions Explored alternatives;Discussed illness/injury and its impact;Identified and reinforced appropriate coping strategies and strengths;Provided caring and supportive presence;Provided safe space to process emotions or concerns Empowerment Interventions Affirmed patient's experience Outcomes Expressed Outcomes Met spiritual needs;Identified priorities;Able to discuss emotions;Appreciative of visit;Appreciative of prayer/ritual;Progressed toward acceptance Care Plan Plan for Follow-Up Lamina Searcher(s) will continue to follow throughout admission Add to Follow Up List Yes Rev. Dr.. Delia Park M.Div, D.Min Lamina Searcher, Pastoral and Spiritual Care For non-urgent requests, please place a Pastoral Care consult in [facility]. For all urgent matters, please send an urgent [facility] Secure Chat to the Pastoral Care group at your location. Between 11pm and 7am, please use On-Call Finder to send an [facility] Secure Chat to the on-call sales record clerk. Pastoral Care office phone numbers: EDG/COV/GRT [phone], FLORINA [phone], FTT [phone], DBN [phone] * Carlos Manuel Landaverde II, MD - [...] arterial studies 05/02 with significant PAD - PARENT TRAINER stenosis Patent popliteal and TPT with severe stenosis Patent proximal PHARMACY DIRECTOR but occluded distally without reconstitution Patent DAREN with multifocal severe stenosis, occlusion at the level of the ankle and no distal reconstitution Significant small vessel disease in L foot * Carlos Manuel Landaverde II, MD - 05/15/2025 2:22 PM EDTAssociated Problem(s): Paroxysmal atrial fibrillation (HCC) Heart rate controlled. 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 - PHARMACY DIRECTOR coreg - cardiac monitoring -Heart rate 94 * Carlos Manuel Landaverde II, MD - 05/15/2025 2:22 PM EDTAssociated Problem(s): Type 2 diabetes mellitus, without long-term current use of insulin (HCC) Last A1c 4.8 in 03/2024. PHARMACY DIRECTOR meds include none. - hold off on FSBS, correctional algorithm - rpt A1c 5.3 * Carlos Manuel Landaverde II, MD - 05/15/2025 2:22 PM EDTAssociated Problem(s): Hypertension associated with diabetes (HCC) Well controlled. - PHARMACY DIRECTOR coreg - monitor and adjust as needed -BP stable 05/15/25 * Carlos Manuel Landaverde II, MD - 05/15/2025 2:22 PM EDTAssociated Problem(s): Acute on chronic heart failure with preserved ejection fraction (HCC) Echo 2023 normal EF. Euvolemic on exam - monitor I/O, daily weights - diuresis: PHARMACY DIRECTOR lasix on hold - PHARMACY DIRECTOR coreg -Stable 05/15/25 * Carlos Manuel [...] 2:22 PM EDTAssociated Problem(s): Coronary arteriosclerosis in [place] artery // Hx of CABG History of [...] arterial studies 05/02 with significant PAD - PARENT TRAINER stenosis Patent popliteal and TPT with severe stenosis Patent proximal PHARMACY DIRECTOR but occluded distally without reconstitution Patent DAREN with multifocal severe stenosis, occlusion at the level of the ankle and no distal reconstitution Significant small vessel disease in L foot Paroxysmal atrial fibrillation (HCC) Heart rate controlled. 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 - PHARMACY DIRECTOR coreg - cardiac monitoring -Heart rate 94 Type 2 diabetes mellitus, without long-term current use of insulin ([facility]) Last A1c 4.8 in 03/2024. PHARMACY DIRECTOR meds include none. - hold off on FSBS, correctional algorithm - rpt A1c 5.3 Hypertension associated with diabetes ([facility]) Well controlled. - PHARMACY DIRECTOR coreg - monitor and adjust as needed -BP stable 05/15/25 Chronic heart failure with preserved ejection fraction ([facility]) Echo 2023 normal EF. Euvolemic on exam - monitor I/O, daily weights - diuresis: PHARMACY DIRECTOR lasix on hold - PHARMACY DIRECTOR coreg -Stable 05/15/25 Stage 3a chronic kidney disease ([facility]) Cre 1.05 at admit. Baseline approx 0.9-1.2. 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 artery // Hx of CABG Type 2 diabetes mellitus, without long-term current use of insulin ([facility]) Hypertension associated with diabetes (HCC) Subjective: Pain [...] EDT Palliative Care Progress Note Consult Location: [facility] Length of Stay: 14 Assessment: Skyler [...] distress: None at this time. See [facility] Lamina Searcher note for additional details. [facility] will continue [...] by palliative professional for patient Palliative Care Lamina Searcher Pastoral Care Interventions Spiritual-emotional support;Goals of care counseling/education;Prayer;Address theological questions/concerns Spiritual acuity Normal complexity Care Plan ([facility] Lamina Searcher will attempt to follow up on 05/16.) Length of time in minutes spent with pt/family/chart review 60 Referred By Palliative Care Nurse Practitioner (Everett BROWN/Mitzy) Palliative Care CHILD ADOLESCENT CARE/Mitzy and Lamina Searcher met with patient to talk about her [...] most important thing in her life . CHILD ADOLESCENT CARE/Li introduced the alternative option of pursuing hospice care, but pt did not share her thoughts about this possibility. Patient has a strong Zoroastrian treasure, but questions why she continues to suffer despite praying every day for healing. Senior Trial Attorney explored with patient the notion that God hears her prayers, though sometimes responds in ways that are different from what we hope. Patient acknowledged that she trusts Godis with her and takes care of her. Lamina Searcher encouraged patient to listen to what God might want to say to her heart, and pt stated that she will try to do this. Senior Trial Attorney prayed with patient for God to reveal God's plan as she continues to think about whether or not to choose amputation. Patient requested follow up sales record clerk visits. Senior Trial Attorney will attempt to see annin on 05/16. Adry Alcazar, [facility] Lamina Searcher, Palliative Care * Shonna Park, MAHENDRA - [...] LE but she did some with transfers [id number] but didn't with static standing. May benefit [...] therapy recommended. Time In / Time Out [id number] IP PT Treatment Minutes 31 The total [...] associated with diabetes (HCC) Well controlled. - PHARMACY DIRECTOR coreg - monitor and adjust as needed -BP stable 05/14/25 * Carlos Manuel Landaverde II, MD - 05/14/2025 2:51 PM EDTAssociated Problem(s): Acute on chronic heart failure with preserved ejection fraction (HCC) Echo 2023 normal EF. Euvolemic on exam - monitor I/O, daily weights - diuresis: PHARMACY DIRECTOR lasix on hold - PHARMACY DIRECTOR coreg -Stable 05/14/25 * Carlos Manuel Landaverde II, MD - 05/14/2025 2:51 PM EDTAssociated Problem(s): Goals of care, counseling/discussion Palliative Care on boad * Hallie Silva RD,LD - 05/14/2025 1:[address] [facility] Nutrition Reassessment Nutrition Prescription: Kcals: 7737-1087 kcal (25-30 kcal/kg, based on 54.4 kg) [...] Stool Occurrence: 1 Stool Appearance: Type 4 [place] Stool Chart Stool Color: Michael Stool Amount: [...] arterial studies 05/02 with significant PAD - PARENT TRAINER stenosis Patent popliteal and TPT with severe stenosis Patent proximal PHARMACY DIRECTOR but occluded distally without reconstitution Patent DAREN with multifocal severe stenosis, occlusion at the level of the ankle and no distal reconstitution Significant small vessel disease in L foot * Carlos Manuel Landaverde II, MD - 05/14/2025 10:10 AM EDTAssociated Problem(s): Paroxysmal atrial fibrillation (HCC) Heart rate controlled. 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 - PHARMACY DIRECTOR coreg - cardiac monitoring -Heart rate 94 * Carlos Manuel Landaverde II, MD - 05/14/2025 10:10 AM EDTAssociated Problem(s): Type 2 diabetes mellitus, without long-term current use of insulin (HCC) Last A1c 4.8 in 03/2024. PHARMACY DIRECTOR meds include none. - hold off [...] 10:10 AM EDTAssociated Problem(s): Coronary arteriosclerosis in [place] artery // Hx of CABG History of [...] (HCC) S/P transmetatarsal amputation of foot, left ([facility]) Wound dehiscence over previous left TMA site. [...] arterial studies 05/02 with significant PAD - PARENT TRAINER stenosis Patent popliteal and TPT with severe stenosis Patent proximal PHARMACY DIRECTOR but occluded distally without reconstitution Patent DAREN with multifocal severe stenosis, occlusion at the level of the ankle and no distal reconstitution Significant small vessel disease in L foot Paroxysmal atrial fibrillation (HCC) Heart rate controlled. 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 - PHARMACY DIRECTOR coreg - cardiac monitoring -Heart rate 94 Type 2 diabetes mellitus, without long-term current use of insulin ([facility]) Last A1c 4.8 in 03/2024. PHARMACY DIRECTOR meds include none. - hold off on FSBS, correctional algorithm - rpt A1c 5.3 Hypertension associated with diabetes ([facility]) Well controlled. - PHARMACY DIRECTOR coreg - monitor and adjust as needed -BP stable 05/14/25 Chronic heart failure with preserved ejection fraction ([facility]) Echo 2023 normal EF. Euvolemic on exam - monitor I/O, daily weights - diuresis: PHARMACY DIRECTOR lasix on hold - PHARMACY DIRECTOR coreg -Stable 05/14/25 Stage 3a chronic kidney disease ([facility]) Cre 1.05 at admit. Baseline approx 0.9-1.2. 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 artery // Hx of CABG Type 2 [...] on AC d/t hx of SAH - PHARMACY DIRECTOR coreg - cardiac monitoring -Heart rate 94 * Kaz Robertson MD - 05/13/2025 1:41 PM EDTAssociated Problem(s): Hypertension associated with diabetes (HCC) Well controlled. - PHARMACY DIRECTOR coreg - monitor and adjust as [...] visit 05/13/25 Visited With Patient Visited By Lamina Searcher Reason for Visit Decision making (Pt reports she meets with doctor today.) Patient Assessment Patient Appears Fearful;Dissatisfied (Pt expressed fears/anxiety over a possible aka. Pt to meet with doctor today.) Patient Gnosticism at Registration Zoroastrian Spiritual Strengths and Coping Resources Hopefulness (Pt is a person of treasure/spoke of divine love and hope.) Spiritual and Emotional Concerns Struggling to find meaning in pain/suffering;Lack of peace;Fear Interventions with Patient Relationship Building Interventions Listened empathetically Gnosticist Interventions Prayer with patient or family Exploration [...] of prayer/ritual Care Plan Plan for Follow-Up Lamina Searcher(s) will continue to follow throughout admission Add [...] Paroxysmal atrial fibrillation (HCC) Coronary arteriosclerosis in [place] artery // Hx of CABG Type 2 [...] arterial studies 05/02 with significant PAD - PARENT TRAINER stenosis Patent popliteal and TPT with severe stenosis Patent proximal PHARMACY DIRECTOR but occluded distally without reconstitution Patent DAREN with multifocal severe stenosis, occlusion at the level of the ankle and no distal reconstitution Significant small vessel disease in L foot * Kaz Robertson MD - 05/13/2025 9:08 AM EDTAssociated Problem(s): Type 2 diabetes mellitus, without long-term current use of insulin (HCC) Last A1c 4.8 in 03/2024. PHARMACY DIRECTOR meds include none. - hold off on FSBS, correctional algorithm - rpt A1c 5.3 * Kaz Robertson MD - 05/13/2025 9:08 AM EDTAssociated Problem(s): Acute on chronic heart failure with preserved ejection fraction (HCC) Echo 2023 normal EF. Euvolemic on exam - monitor I/O, daily weights - diuresis: PHARMACY DIRECTOR lasix on hold - PHARMACY DIRECTOR coreg * Kaz Robertson MD - 05/13/2025 9:08 AM EDTAssociated Problem(s): Stage 3a chronic kidney disease (HCC) Cre 1.05 at admit. Baseline approx 0.9-1.2. - caution with contrast - note plans for angiogram - monitor renal function closely - avoid hypotension, nephrotoxins as able * Kaz Robertson MD - 05/13/2025 9:08 AM EDTAssociated Problem(s): Coronary arteriosclerosis in [place] artery // Hx of CABG History of [...] arterial studies 05/02 with significant PAD - PARENT TRAINER stenosis Patent popliteal and TPT with severe stenosis Patent proximal PHARMACY DIRECTOR but occluded distally without reconstitution Patent DAREN with multifocal severe stenosis, occlusion at the level of the ankle and no distal reconstitution Significant small vessel disease in L foot Paroxysmal atrial fibrillation (HCC) Heart rate controlled. 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 - PHARMACY DIRECTOR coreg - cardiac monitoring -Heart rate 94 Type 2 diabetes mellitus, without long-term current use of insulin ([facility]) Last A1c 4.8 in 03/2024. PHARMACY DIRECTOR meds include none. - hold off on FSBS, correctional algorithm - rpt A1c 5.3 Hypertension associated with diabetes ([facility]) Well controlled. - PHARMACY DIRECTOR coreg - monitor and adjust as needed -Blood pressure 113/46 Chronic heart failure with preserved ejection fraction ([facility]) Echo 2023 normal EF. Euvolemic on exam - monitor I/O, daily weights - diuresis: PHARMACY DIRECTOR lasix on hold - PHARMACY DIRECTOR coreg Stage 3a chronic kidney disease ([facility]) Cre 1.05 at admit. Baseline approx 0.9-1.2. - caution with contrast - note plans for angiogram - monitor renal function closely - avoid hypotension, nephrotoxins as able Coronary arteriosclerosis in [place] artery // Hx of CABG History of [...] foot, now with peripheral vascular disease necessitating [id number] amputation. Patient needs to decide on further surgical intervention Estimated Date of Discharge: 05/14/2025 Date of Admission: 04/30/2025 Chief Complaint: Foot pain Subjective: Patient seen and examined. Patient once again does not remember who I am despite me seeing her for the past 6 days. She just got done talking with vascular surgery who recommended an [id number] amputation. Will need to discuss with family [...] Pat Name: SKYLER BAUTISTA Department: DEPID Room: [facility] Gender: Female Museum Assistant: CHANTEL : 1940 Requested By: DONNIE PLUMMER Order Number: [id number] Reading MD: Isidro Kennedy Measurements Intervals [place] Rate: 134 P: 203 IL: 145 QRS: -6 QRSD: 93 T: -78 [...] for technique and Min x2 for balance. [facility] for walker management. Balance Sitting Balance 2+/5 [...] therapy recommended. Time In / Time Out [id number] IP OT Individual Treatment Minutes 42 * [...] arterial studies 05/02 with significant PAD - PARENT TRAINER stenosis Patent popliteal and TPT with severe stenosis Patent proximal PHARMACY DIRECTOR but occluded distally without reconstitution Patent DAREN with multifocal severe stenosis, occlusion at the level of the ankle and no distal reconstitution Significant small vessel disease in L foot * Kaz Robertson MD - 05/12/2025 10:17 AM EDTAssociated Problem(s): Paroxysmal atrial fibrillation (HCC) Heart rate controlled. 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 - PHARMACY DIRECTOR coreg - cardiac monitoring -Heart rate 83 * Kaz Robertson MD - 05/12/2025 10:17 AM EDTAssociated Problem(s): Type 2 diabetes mellitus, without long-term current use of insulin (HCC) Last A1c 4.8 in 03/2024. PHARMACY DIRECTOR meds include none. - hold off on FSBS, correctional algorithm - rpt A1c 5.3 * Kaz Robertson MD - 05/12/2025 10:17 AM EDTAssociated Problem(s): Hypertension associated with diabetes (HCC) Well controlled. - PHARMACY DIRECTOR coreg - monitor and adjust as needed -Blood pressure 122/57 * Kaz Robertson MD - 05/12/2025 10:17 AM EDTAssociated Problem(s): Acute on chronic heart failure with preserved ejection fraction (HCC) Echo 2023 normal EF. Euvolemic on exam - monitor I/O, daily weights - diuresis: PHARMACY DIRECTOR lasix on hold - PHARMACY DIRECTOR coreg * Kaz Robertson MD - 05/12/2025 10:17 AM EDTAssociated Problem(s): Stage 3a chronic kidney disease (HCC) Cre 1.05 at admit. Baseline approx 0.9-1.2. - caution with contrast - note plans for angiogram - monitor renal function closely - avoid hypotension, nephrotoxins as able * Kaz Robertson MD - 05/12/2025 10:17 AM EDTAssociated Problem(s): Coronary arteriosclerosis in [place] artery // Hx of CABG History of [...] arterial studies 05/02 with significant PAD - PARENT TRAINER stenosis Patent popliteal and TPT with severe stenosis Patent proximal PHARMACY DIRECTOR but occluded distally without reconstitution Patent DAREN with multifocal severe stenosis, occlusion at the level of the ankle and no distal reconstitution Significant small vessel disease in L foot Paroxysmal atrial fibrillation ([facility]) Heart rate controlled. 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 - PHARMACY DIRECTOR coreg - cardiac monitoring -Heart rate 83 Type 2 diabetes mellitus, without long-term current use of insulin ([facility]) Last A1c 4.8 in 03/2024. PHARMACY DIRECTOR meds include none. - hold off on FSBS, correctional algorithm - rpt A1c 5.3 Hypertension associated with diabetes ([facility]) Well controlled. - PHARMACY DIRECTOR coreg - monitor and adjust as needed -Blood pressure 122/57 Chronic heart failure with preserved ejection fraction ([facility]) Echo 2023 normal EF. Euvolemic on exam - monitor I/O, daily weights - diuresis: PHARMACY DIRECTOR lasix on hold - PHARMACY DIRECTOR coreg Stage 3a chronic kidney disease (HCC) Cre 1.05 at admit. Baseline approx 0.9-1.2. - caution with contrast - note plans for angiogram - monitor renal function closely - avoid hypotension, nephrotoxins as able Coronary arteriosclerosis in [place] artery // Hx of CABG History of [...] BAUTISTA Department: DEPID Room: 3326 Gender: Female Museum Assistant: CHANTEL : 1940 Requested By: DONNIE PLUMMER Order Number: [id number] Reading MD: Isidro Kennedy Measurements Intervals [place] Rate: 134 P: 203 IL: 145 QRS: -6 QRSD: 93 T: -78 [...] Visited With Patient and family/visitors Visited By Lamina Searcher Reason for Visit Spiritual, emotional or social support Patient Assessment Patient Appears Anxious;Expressed discomfort;Fearful;Grateful/Appreciative;Pleasant;Sad;Tearful Patient Gnosticism at Registration Zoroastrian Patient Gnosticism Upon Assessment Zoroastrian Spiritual Strengths and Coping Resources Meaning, ez, support in scientologist practices;Accepts help from others;Acceptance of changes or limitations in health;Resilience or adaptability;Sense of security from belief system;Spends time in prayer/spiritual practices;Support system Spiritual and Emotional Concerns Appears anxious;Fear;Fears being a burden to loved ones;Sadness;Processing decrease in mobility and independence Patient Spiritual Wellbeing Low Acuity - Spiritual Discomfort Family Assessment Spiritual Strengths and Coping Resources Demonstrates positive self-esteem;Determination;Hopefulness;Meaning, ez, support in scientologist practices;Sense of belonging Spiritual and Emotional Concerns Sadness Interventions with Patient Relationship Building Interventions Cultivated a relationship of care and support;Listened empathetically;Provided family support Gnosticist Interventions Prayer with patient or family Exploration Interventions Discussed illness/injury and its impact;Explored image of God in relationship to situation;Explored sources of strength and hope;Provided caring and supportive presence;Provided safe space to process emotions or concerns Empowerment Interventions Encouraged assertiveness;Encouraged patient autonomy;Encouraged self-care Interventions with Family Relationship Building Interventions Cultivated a relationship of care and support;Listened empathetically;Provided family support Gnosticist Interventions Prayer with family Exploration Interventions Provided caring and supportive presence;Provided safe space to process emotions or concerns Empowerment Interventions Affirmed individual's own spiritual journey;Affirmed family's experience Outcomes Expressed Outcomes Expressed feeling supported;Expressed comfort/peace;Appreciative of prayer/ritual;Appreciative of visit;Able to discuss emotions Care Plan Plan for Follow-Up Lamina Searcher(s) remains available as needed Add to Follow Up List Yes Rev. Dr. Delia Park M.Div, D.Min Lamina Searcher, Pastoral and Spiritual Care For non-urgent requests, please place a Pastoral Care consult in [facility]. For all urgent matters, please send an urgent [facility] Secure Chat to the Pastoral Care group at your location. Between 11pm and 7am, please use On-Call Finder to send an [facility] Secure Chat to the on-call sales record clerk. Pastoral Care office phone numbers: EDG/COV/GRT [phone], FLORINA [phone], FTT [phone], DBN [phone] * Kaz Robertson MD - 05/11/2025 11:59 [...] arterial studies 05/02 with significant PAD - PARENT TRAINER stenosis Patent popliteal and TPT with severe stenosis Patent proximal PHARMACY DIRECTOR but occluded distally without reconstitution Patent DAREN with multifocal severe stenosis, occlusion at the level of the ankle and no distal reconstitution Significant small vessel disease in L foot * Kaz Robertson MD - 05/11/2025 11:59 AM EDTAssociated Problem(s): Paroxysmal atrial fibrillation (HCC) Heart rate controlled. 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 - PHARMACY DIRECTOR coreg - cardiac monitoring -Heart rate 98 * Miryam Guzman, RADIOLOGY RN - 05/11/2025 10:04 AM EDT Images from [...] Paroxysmal atrial fibrillation (HCC) Coronary arteriosclerosis in [place] // Hx of CABG Type 2 [...] mellitus, without long-term current use of insulin ([facility]) Last A1c 4.8 in 03/2024. PHARMACY DIRECTOR meds include none. - hold off on FSBS, correctional algorithm - rpt A1c 5.3 * Kaz Robertson MD - 05/11/2025 7:12 AM EDTAssociated Problem(s): Hypertension associated with diabetes ([facility]) Well controlled. - PHARMACY DIRECTOR coreg - monitor and adjust as needed -Blood pressure 116/76 * Kaz Robertson MD - 05/11/2025 7:12 AM EDTAssociated Problem(s): Acute on chronic heart failure with preserved ejection fraction (HCC) Echo 2023 normal EF. Euvolemic on exam - monitor I/O, daily weights - diuresis: PHARMACY DIRECTOR lasix on hold - PHARMACY DIRECTOR coreg * Kaz Robertson MD - 05/11/2025 7:12 AM EDTAssociated Problem(s): Stage 3a chronic kidney disease (HCC) Cre 1.05 at admit. Baseline approx 0.9-1.2. - caution with contrast - note plans for angiogram - monitor renal function closely - avoid hypotension, nephrotoxins as able * Kaz Robertson MD - 05/11/2025 7:12 AM EDTAssociated Problem(s): Coronary arteriosclerosis in [place] // Hx of CABG History of [...] arterial studies 05/02 with significant PAD - PARENT TRAINER stenosis Patent popliteal and TPT with severe stenosis Patent proximal PHARMACY DIRECTOR but occluded distally without reconstitution Patent DAREN with multifocal severe stenosis, occlusion at the level of the ankle and no distal reconstitution Significant small vessel disease in L foot Paroxysmal atrial fibrillation (HCC) Heart rate controlled. 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 - PHARMACY DIRECTOR coreg - cardiac monitoring -Heart rate 98 Type 2 diabetes mellitus, without long-term current use of insulin ([facility]) Last A1c 4.8 in 03/2024. PHARMACY DIRECTOR meds include none. - hold off on FSBS, correctional algorithm - rpt A1c 5.3 Hypertension associated with diabetes ([facility]) Well controlled. - PHARMACY DIRECTOR coreg - monitor and adjust as needed -Blood pressure 116/76 Chronic heart failure with preserved ejection fraction ([facility]) Echo 2023 normal EF. Euvolemic on exam - monitor I/O, daily weights - diuresis: PHARMACY DIRECTOR lasix on hold - PHARMACY DIRECTOR coreg Stage 3a chronic kidney disease ([facility]) Cre 1.05 at admit. Baseline approx 0.9-1.2. - caution with contrast - note plans for angiogram - monitor renal function closely - avoid hypotension, nephrotoxins as able Coronary arteriosclerosis in [place] artery // Hx of CABG History of [...] BAUTISTA Department: DEPID Room: 332 Gender: Female Museum Assistant: CHANTEL : 1940 Requested By: DONNIE PLUMMER Order Number: [id number] Reading MD: Isidro Kennedy Measurements Intervals [place] Rate: 134 P: 203 IL: 145 QRS: -6 QRSD: 93 T: -78 [...] on AC d/t hx of SAH - PHARMACY DIRECTOR coreg - cardiac monitoring -Heart rate 83 * Kaz Robertson MD - 05/10/2025 1:54 PM EDTAssociated Problem(s): Type 2 diabetes mellitus, without long-term current use of insulin ([facility]) Last A1c 4.8 in 03/2024. PHARMACY DIRECTOR meds include none. - hold off on FSBS, correctional algorithm - rpt A1c 5.3 * Kaz Robertson MD - 05/10/2025 1:54 PM EDTAssociated Problem(s): Hypertension associated with diabetes ([facility]) Well controlled. - PHARMACY DIRECTOR coreg - monitor and adjust as needed -Blood pressure 116/76 * Kaz Robertson MD - 05/10/2025 1:54 PM EDTAssociated Problem(s): Acute on chronic heart failure with preserved ejection fraction (HCC) Echo 2023 normal EF. Euvolemic on exam - monitor I/O, daily weights - diuresis: PHARMACY DIRECTOR lasix on hold - PHARMACY DIRECTOR coreg * Kaz Robertson MD - 05/10/2025 1:54 PM EDTAssociated Problem(s): Stage 3a chronic kidney disease (HCC) Cre 1.05 at admit. Baseline approx 0.9-1.2. - caution with contrast - note plans for angiogram - monitor renal function closely - avoid hypotension, nephrotoxins as able * Kaz Robertson MD - 05/10/2025 1:54 PM EDTAssociated Problem(s): Coronary arteriosclerosis in [place] artery // Hx of CABG History of [...] on AC d/t hx of SAH - PHARMACY DIRECTOR coreg - cardiac monitoring -Heart rate 83 Type 2 diabetes mellitus, without long-term current use of insulin ([facility]) Last A1c 4.8 in 03/2024. PHARMACY DIRECTOR meds include none. - hold off on FSBS, correctional algorithm - rpt A1c 5.3 Hypertension associated with diabetes (HCC) Well controlled. - PHARMACY DIRECTOR coreg - monitor and adjust as needed -Blood pressure 116/76 Chronic heart failure with preserved ejection fraction (HCC) Echo 2023 normal EF. Euvolemic on exam - monitor I/O, daily weights - diuresis: PHARMACY DIRECTOR lasix on hold - PHARMACY DIRECTOR coreg Stage 3a chronic kidney disease (HCC) Cre 1.05 at admit. Baseline approx 0.9-1.2. 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 Gender: Female Museum Assistant: CHANTEL : 1940 Requested By: DONNIE PLUMMER Order Number: [id number] Reading MD: Isidro Kennedy Measurements Intervals [place] Rate: 134 P: 203 IL: 145 QRS: -6 QRSD: 93 T: -78 [...] at time of d/c. Pharmacy updated in [employer]. SW following Final Note Post Acute Form Completed Yes * Cely Gottlieb RD,LD - 05/10/2025 10:[address] [facility] Nutrition Malnutrition Reassessment Evidence Supported Diagnosis: No malnutrition identified Nutrition Prescription: Kcals: 5718-3156 kcal (25-30 kcal/kg) Protein (g): 65-82 gm [...] Stool Occurrence: 1 Stool Appearance: Type 4 [place] Stool Chart Stool Color: Michael Stool Amount: [...] therapy recommended. Time In / Time Out [id number] IP PT Treatment Minutes 24 The total [...] on AC d/t hx of SAH - PHARMACY DIRECTOR coreg - cardiac monitoring -Heart rate 75 * Kaz Robertson MD - 05/09/2025 10:25 AM EDTAssociated Problem(s): Hypertension associated with diabetes (HCC) Well controlled. - PHARMACY DIRECTOR coreg - monitor and adjust as [...] insulin (HCC) Last A1c 4.8 in 03/2024. PHARMACY DIRECTOR meds include none. - hold off on FSBS, correctional algorithm - rpt A1c 5.3 * Kaz Robertson MD - 05/09/2025 7:00 AM EDTAssociated Problem(s): Acute on chronic heart failure with preserved ejection fraction (HCC) Echo 2023 normal EF. Euvolemic on exam - monitor I/O, daily weights - diuresis: PHARMACY DIRECTOR lasix on hold - PHARMACY DIRECTOR coreg * Kaz Robertson MD - 05/09/2025 7:00 AM EDTAssociated Problem(s): Stage 3a chronic kidney disease (HCC) Cre 1.05 at admit. Baseline approx 0.9-1.2. - caution with contrast - note plans for angiogram - monitor renal function closely - avoid hypotension, nephrotoxins as able * Kaz Robertson MD - 05/09/2025 7:00 AM EDTAssociated Problem(s): Coronary arteriosclerosis in [place] // Hx of CABG History of [...] on AC d/t hx of SAH - PHARMACY DIRECTOR coreg - cardiac monitoring -Heart rate 75 Type 2 diabetes mellitus, without long-term current use of insulin (HCC) Last A1c 4.8 in 03/2024. PHARMACY DIRECTOR meds include none. - hold off on FSBS, correctional algorithm - rpt A1c 5.3 Hypertension associated with diabetes (HCC) Well controlled. - PHARMACY DIRECTOR coreg - monitor and adjust as needed -Blood pressure 128/66 Chronic heart failure with preserved ejection fraction (HCC) Echo 2023 normal EF. Euvolemic on exam - monitor I/O, daily weights - diuresis: PHARMACY DIRECTOR lasix on hold - PHARMACY DIRECTOR coreg Stage 3a chronic kidney disease (HCC) Cre 1.05 at admit. Baseline approx 0.9-1.2. 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 Gender: Female Museum Assistant: CHANTEL : 1940 Requested By: DONNIE PLUMMER Order Number: [id number] Reading MD: Isidro Kennedy Measurements Intervals [place] Rate: 134 P: 203 IL: 145 QRS: -6 QRSD: 93 T: -78 [...] therapy recommended. Time In / Time Out [id number]/2104-7630 (31 minutes) IP OT Evaluation Minutes 8 [...] on AC d/t hx of SAH - PHARMACY DIRECTOR coreg - cardiac monitoring -Heart rate 80 * Kaz Robertson MD - 05/08/2025 1:05 PM EDTAssociated Problem(s): Hypertension associated with diabetes (HCC) Well controlled. - PHARMACY DIRECTOR coreg - monitor and adjust as [...] therapy recommended. Time In / Time Out [id number] PT Treatment Minutes 25 The total time [...] insulin (HCC) Last A1c 4.8 in 03/2024. PHARMACY DIRECTOR meds include none. - hold off on FSBS, correctional algorithm - rpt A1c 5.3 * Kaz Robertson MD - 05/08/2025 6:56 AM EDTAssociated Problem(s): Acute on chronic heart failure with preserved ejection fraction (HCC) Echo 2023 normal EF. Euvolemic on exam - monitor I/O, daily weights - diuresis: PHARMACY DIRECTOR lasix on hold - PHARMACY DIRECTOR coreg * Kaz Robertson MD - 05/08/2025 6:56 AM EDTAssociated Problem(s): Stage 3a chronic kidney disease (HCC) Cre 1.05 at admit. Baseline approx 0.9-1.2. - caution with contrast - note plans for angiogram - monitor renal function closely - avoid hypotension, nephrotoxins as able * Kaz Robertson MD - 05/08/2025 6:56 AM EDTAssociated Problem(s): Coronary arteriosclerosis in [place] // Hx of CABG History of [...] on AC d/t hx of SAH - PHARMACY DIRECTOR coreg - cardiac monitoring -Heart rate 80 Type 2 diabetes mellitus, without long-term current use of insulin ([facility]) Last A1c 4.8 in 03/2024. PHARMACY DIRECTOR meds include none. - hold off on FSBS, correctional algorithm - rpt A1c 5.3 Hypertension associated with diabetes ([facility]) Well controlled. - PHARMACY DIRECTOR coreg - monitor and adjust as needed -Blood pressure 124/66 Chronic heart failure with preserved ejection fraction (HCC) Echo 2023 normal EF. Euvolemic on exam - monitor I/O, daily weights - diuresis: PHARMACY DIRECTOR lasix on hold - PHARMACY DIRECTOR coreg Stage 3a chronic kidney disease (HCC) Cre 1.05 at admit. Baseline approx 0.9-1.2. 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 Gender: Female Museum Assistant: CHANTEL : 1940 Requested By: DONNIE PLUMMER Order Number: [id number] Reading MD: Isidro Kennedy Measurements Intervals [place] Rate: 134 P: 203 IL: 145 QRS: -6 QRSD: 93 T: -78 QT: 333 QTc: 499 Interpretive Statements SINUS TACHYCARDIA NONSPECIFIC ST & T-WAVE ABNORMALITY Electronically Signed On 04-30-2025 22:14:02 EDT by Isidro Robertson MD * Spencer Dye - 05/07/2025 4:06 PM EDT 05/07/25 1500 Reason for Visit Date of visit 05/07/25 Visited With Patient and family/visitors Visited By Lamina Searcher Reason for Visit Follow-up Patient Assessment Patient Appears Fearful;Anxious Patient Gnosticism at Registration Zoroastrian Spiritual and Emotional Concerns Fear Patient Spiritual Wellbeing Moderate Acuity - Spiritual Distress Interventions with Patient Gnosticist Interventions Prayer with patient or family Exploration Interventions Discussed illness/injury and its impact;Identified and reinforced appropriate coping strategies and strengths;Explored image of God in relationship to situation Outcomes Expressed Outcomes Expressed feeling supported Care Plan Plan for Follow-Up Lamina Searcher(s) will continue to follow throughout admission * [...] on AC d/t hx of SAH - PHARMACY DIRECTOR coreg - cardiac monitoring -Heart rate 81 * Cely Gottlieb RD,LD - 05/07/2025 10:[address] [facility] Nutrition Malnutrition Reassessment Evidence Supported Diagnosis: No malnutrition identified Nutrition Prescription: Kcals: 5217-1943 kcal (25-30 kcal/kg) Protein (g): 65-82 gm [...] insulin (HCC) Last A1c 4.8 in 03/2024. PHARMACY DIRECTOR meds include none. - hold off on FSBS, correctional algorithm - rpt A1c 5.3 * Kaz Robertson MD - 05/07/2025 7:10 AM EDTAssociated Problem(s): Hypertension associated with diabetes (HCC) Well controlled. - PHARMACY DIRECTOR coreg - monitor and adjust as needed * Kaz Robertson MD - 05/07/2025 7:10 AM EDTAssociated Problem(s): Acute on chronic heart failure with preserved ejection fraction (HCC) Echo 2023 normal EF. Euvolemic on exam - monitor I/O, daily weights - diuresis: PHARMACY DIRECTOR lasix on hold - PHARMACY DIRECTOR coreg * Kaz Robertson MD - 05/07/2025 7:10 AM EDTAssociated Problem(s): Stage 3a chronic kidney disease (HCC) Cre 1.05 at admit. Baseline approx 0.9-1.2. - caution with contrast - note plans for angiogram - monitor renal function closely - avoid hypotension, nephrotoxins as able * Kaz Robertson MD - 05/07/2025 7:10 AM EDTAssociated Problem(s): Coronary arteriosclerosis in [place] artery // Hx of CABG History of [...] on AC d/t hx of SAH - PHARMACY DIRECTOR coreg - cardiac monitoring -Heart rate 81 Type 2 diabetes mellitus, without long-term current use of insulin (HCC) Last A1c 4.8 in 03/2024. PHARMACY DIRECTOR meds include none. - hold off on FSBS, correctional algorithm - rpt A1c 5.3 Hypertension associated with diabetes (HCC) Well controlled. - PHARMACY DIRECTOR coreg - monitor and adjust as needed Chronic heart failure with preserved ejection fraction (HCC) Echo 2023 normal EF. Euvolemic on exam - monitor I/O, daily weights - diuresis: PHARMACY DIRECTOR lasix on hold - PHARMACY DIRECTOR coreg Stage 3a chronic kidney disease (HCC) Cre 1.05 at admit. Baseline approx 0.9-1.2. 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 Gender: Female Museum Assistant: CHANTEL : 1940 Requested By: DONNIE PLUMMER Order Number: [id number] Ivone MD: Isidro Kennedy Measurements Intervals [place] Rate: 134 P: 203 IL: 145 QRS: -6 QRSD: 93 T: -78 QT: 333 QTc: 499 Interpretive Statements SINUS TACHYCARDIA NONSPECIFIC ST & T-WAVE ABNORMALITY Electronically Signed On 04-30-2025 22:14:02 EDT by Isidro Robertson MD * Radha Looney, PT - 05/06/2025 11:47 AM EDT 05/06/25 1054 PT Subjective Note Type Evaluation;Chart Review Patient Room/Unit 3326 PT Subjective Comments #1 pt agreeable, has to use the [facility] Discharge Information Evaluation [...] abscess. Clinical Course 04/30: To ED from [facility] with L TMA dehiscence, L Foot [...] Additional Comments per chart, pt was at [facility] prior to admit, plan to stay with [...] therapy recommended. Time In / Time Out 4105-2838 IP PT Evaluation Minutes 10 IP PT Treatment Minutes 43 The total time spent caring for this patient included but was not limited to medical record review;hands-on treatment;communication and education with patient and/or family/caregiver;clinical judgement necessary for treatment planning for next session;communication with nursing and/or care coordinat ion/social work regarding patient status and discharge planning * Rosario Izaguirre EQUIPMENT OPERATOR WAGE [employer] - 05/06/2025 10:01 AM EDT 05/06/25 1000 Ongoing Discharge Planning Evaluation Completed by CC/NORA Yes Repisodic List provided Yes, Provided information, demonstrated how to access quality and resource utilization data for post acute provider and offered assistance and [facility] Financial Disclosure completed Actual Discharge Plan 05/06/2025 [...] from pts sister. Confirmed pt wa at [facility] and should go back there. Plans [...] on AC d/t hx of SAH - PHARMACY DIRECTOR coreg - cardiac monitoring * Geo Guallpa MD - 05/06/2025 9:31 AM EDTAssociated Problem(s): Type 2 diabetes mellitus, without long-term current use of insulin ([facility]) Last A1c 4.8 in 03/2024. PHARMACY DIRECTOR meds include none. - hold off on FSBS, correctional algorithm - rpt A1c 5.3 * Geo Guallpa MD - 05/06/2025 9:31 AM EDTAssociated Problem(s): Hypertension associated with diabetes ([facility]) Well controlled. - PHARMACY DIRECTOR coreg - monitor and adjust as needed * Geo Guallpa MD - 05/06/2025 9:31 AM EDTAssociated Problem(s): Acute on chronic heart failure with preserved ejection fraction (HCC) Echo 2023 normal EF. Euvolemic on exam - monitor I/O, daily weights - diuresis: PHARMACY DIRECTOR lasix on hold - PHARMACY DIRECTOR coreg * Geo Guallpa MD - 05/06/2025 9:31 AM EDTAssociated Problem(s): Stage 3a chronic kidney disease (HCC) Cre 1.05 at admit. Baseline approx 0.9-1.2. - caution with contrast - note plans for angiogram - monitor renal function closely - avoid hypotension, nephrotoxins as able * Geo Guallpa MD - 05/06/2025 9:31 AM EDTAssociated Problem(s): Coronary arteriosclerosis in [place] artery // Hx of CABG History of [...] on AC d/t hx of SAH - PHARMACY DIRECTOR coreg - cardiac monitoring Type 2 diabetes mellitus, without long-term current use of insulin (HCC) Last A1c 4.8 in 03/2024. PHARMACY DIRECTOR meds include none. - hold off on FSBS, correctional algorithm - rpt A1c 5.3 Hypertension associated with diabetes (HCC) Well controlled. - PHARMACY DIRECTOR coreg - monitor and adjust as needed Chronic heart failure with preserved ejection fraction (HCC) Echo 2023 normal EF. Euvolemic on exam - monitor I/O, daily weights - diuresis: PHARMACY DIRECTOR lasix on hold - PHARMACY DIRECTOR coreg Stage 3a chronic kidney disease (HCC) Cre 1.05 at admit. Baseline approx 0.9-1.2. 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 artery // Hx of CABG Type 2 [...] on AC d/t hx of SAH - PHARMACY DIRECTOR coreg - cardiac monitoring * Geo Guallpa MD - 05/05/2025 1:00 PM EDTAssociated Problem(s): Type 2 diabetes mellitus, without long-term current use of insulin (HCC) Last A1c 4.8 in 03/2024. PHARMACY DIRECTOR meds include none. - hold off on FSBS, correctional algorithm - note metformin started - will stop given plans for angiogram this week - rpt A1c ordered * Geo Guallpa MD - 05/05/2025 1:00 PM EDTAssociated Problem(s): Hypertension associated with diabetes (HCC) Well controlled. - PHARMACY DIRECTOR coreg - monitor and adjust as needed * Geo Guallpa MD - 05/05/2025 1:00 PM EDTAssociated Problem(s): Acute on chronic heart failure with preserved ejection fraction (HCC) Echo 2023 normal EF. Euvolemic on exam - monitor I/O, daily weights - diuresis: PHARMACY DIRECTOR lasix on hold - PHARMACY DIRECTOR coreg * Geo Guallpa MD - 05/05/2025 1:00 PM EDTAssociated Problem(s): Stage 3a chronic kidney disease (HCC) Cre 1.05 at admit. Baseline approx 0.9-1.2. - caution with contrast - note plans for angiogram - monitor renal function closely - avoid hypotension, nephrotoxins as able * Geo Guallpa MD - 05/05/2025 1:00 PM EDTAssociated Problem(s): Coronary arteriosclerosis in [place] artery // Hx of CABG History of CABG - continue lipitor, coreg, ranexa - cardiac monitoring * Geo Guallpa MD - 05/05/2025 12:57 PM EDT PROGRESS NOTE Assessment/Plan: Assessment & Plan Diabetic foot infection (HCC) S/P transmetatarsal amputation of foot, left ([facility]) Wound dehiscence over previous left TMA site. [...] on AC d/t hx of SAH - PHARMACY DIRECTOR coreg - cardiac monitoring Type 2 diabetes mellitus, without long-term current use of insulin ([facility]) Last A1c 4.8 in 03/2024. PHARMACY DIRECTOR meds include none. - hold off on FSBS, correctional algorithm - note metformin started - will stop given plans for angiogram this week - rpt A1c ordered Hypertension associated with diabetes ([facility]) Well controlled. - PHARMACY DIRECTOR coreg - monitor and adjust as needed Chronic heart failure with preserved ejection fraction ([facility]) Echo 2023 normal EF. Euvolemic on exam - monitor I/O, daily weights - diuresis: PHARMACY DIRECTOR lasix on hold - PHARMACY DIRECTOR coreg Stage 3a chronic kidney disease (HCC) Cre 1.05 at admit. Baseline approx 0.9-1.2. 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 artery // Hx of CABG Type 2 diabetes mellitus, without long-term current use of insulin (HCC) Hypertension associated with diabetes (HCC) Subjective: Ms. Bautista is up in the chair. Reports she's getting some tingling in her foot, which she's hopeful means she'll have a good outcome. She states she can't see herself getting an amputation. Discussed with her and her son, [id number], at bedside. When asked what might happen [...] on AC d/t hx of SAH - PHARMACY DIRECTOR coreg - cardiac monitoring * Geo Guallpa MD - 05/05/2025 12:57 PM EDTAssociated Problem(s): Type 2 diabetes mellitus, without long-term current use of insulin (HCC) Last A1c 4.8 in 03/2024. PHARMACY DIRECTOR meds include none. - hold off on FSBS, correctional algorithm - note metformin started - will stop given plans for angiogram this week - rpt A1c * Geo Guallpa MD - 05/05/2025 12:57 PM EDTAssociated Problem(s): Acute on chronic heart failure with preserved ejection fraction (HCC) Echo 2023 normal EF. Euvolemic on exam - monitor I/O, daily weights - diuresis: PHARMACY DIRECTOR lasix on hold - PHARMACY DIRECTOR coreg * Geo Guallpa MD - 05/05/2025 12:57 PM EDTAssociated Problem(s): Hypertension associated with diabetes (HCC) Well controlled. - PHARMACY DIRECTOR coreg - monitor and adjust as [...] 12:57 PM EDTAssociated Problem(s): Coronary arteriosclerosis in [place] artery // Hx of CABG History of [...] on AC d/t hx of SAH - PHARMACY DIRECTOR coreg - cardiac monitoring Type 2 diabetes mellitus, without long-term current use of insulin ([facility]) Last A1c 4.8 in 03/2024. PHARMACY DIRECTOR meds include none. - hold off on FSBS, correctional algorithm - note metformin started - will stop given plans for angiogram this week - rpt A1c Hypertension associated with diabetes (HCC) Well controlled. - PHARMACY DIRECTOR coreg - monitor and adjust as needed Chronic heart failure with preserved ejection fraction (HCC) Echo 2023 normal EF. Euvolemic on exam - monitor I/O, daily weights - diuresis: PHARMACY DIRECTOR lasix on hold - PHARMACY DIRECTOR coreg Stage 3a chronic kidney disease (HCC) Cre 1.05 at admit. Baseline approx 0.9-1.2. 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 artery // Hx of CABG Type 2 [...] Paroxysmal atrial fibrillation (HCC) Coronary arteriosclerosis in [place] artery // Hx of CABG Type 2 [...] long-term current use of insulin (HCC) Cont bellhop service captain metformin Refusing SSI * Marcell Aguirre [...] 6:33 PM EDTAssociated Problem(s): Coronary arteriosclerosis in [place] artery // Hx of CABG History of [...] long-term current use of insulin (HCC) Cont bellhop service captain metformin Refusing SSI Chronic heart failure with preserved ejection fraction (HCC) Echo 2023 normal EF Compensated 05/03/2025 Primary hypertension Controlled Stage 3a chronic kidney disease (HCC) Baseline CR 0.9-1.2, stable Coronary arteriosclerosis in [place] artery // Hx of CABG History of [...] long-term current use of insulin (HCC) Cont bellhop service captain metformin Refusing SSI * Marcell Aguirre [...] 5:52 PM EDTAssociated Problem(s): Coronary arteriosclerosis in [place] artery // Hx of CABG History of [...] long-term current use of insulin (HCC) Cont bellhop service captain metformin Refusing SSI Chronic heart failure with preserved ejection fraction (HCC) Echo 2023 normal EF Compensated 05/02/2025 Primary hypertension Controlled Stage 3a chronic kidney disease (HCC) Baseline CR 0.9-1.2, stable Coronary arteriosclerosis in [place] artery // Hx of CABG History of [...] out of rehab so much ) Patient Gnosticism Upon Assessment Zoroastrian Spiritual Strengths and Coping Resources Spends time [...] sons but lost youngest eight yrs ago.) Gnosticist Interventions Prayer with patient or family (Pt states that she knows without a shady or doubt that God is with me. I can feel his presence . Pt less anxious after prayer support.) Empowerment Interventions Encouraged focus on present Outcomes Expressed Outcomes Met spiritual needs;Appreciative of prayer/ritual;Able to discuss emotions;Able to explore grief;Distress reduced;Decreased anxiety Care Plan Plan for Follow-Up Lamina Searcher(s) will continue to follow throughout admission * Mel Hurd MSW - 05/02/2025 9:59 AM EDT 05/02/25 0900 Assessment Complete Actual Discharge Plan 05/02/25 SW update: Pt was admitted from [facility]. Referral was sent to [facility] in [facility] per pt's request; NORA spoke with Grisel at [facility] regarding referral. Grisel informed SW pt was at [facility] last month and they sent pt to [facility] b/c pt needed a lower level of therapy. Pt will need PT consult for recommendations and to see if pt needs acute rehab. MD notified and PT eval pending. NORA will follow up with pt and pt's family, as well as [facility] once PT eval completed and recs are [...] 5:56 PM EDTAssociated Problem(s): Coronary arteriosclerosis in [place] artery // Hx of CABG History of CABG no chest pain * Marcell Aguirre MD - 05/01/2025 5:56 PM EDTAssociated Problem(s): Type 2 diabetes mellitus, without long-term current use of insulin (HCC) Cont bellhop service captain metformin Refusing SSI * Marcell Aguirre [...] long-term current use of insulin (HCC) Cont bellhop service captain metformin Refusing SSI Chronic heart failure with preserved ejection fraction (HCC) Echo 2023 normal EF Compensated Primary hypertension Controlled PAD (peripheral artery disease) History of angiogram 01/2025 Stage 3a chronic kidney disease (HCC) Baseline CR 0.9-1.2, stable Coronary arteriosclerosis in [place] artery // Hx of CABG History of [...] RD,LD - 05/01/2025 3:[address] [facility] Nutrition Malnutrition Assessment Evidence Supported Diagnosis: No malnutrition identified Nutrition Prescription: Kcals: [id number] kcal (25-30 kcal/kg) Protein (g): 65-82 gm [...] Stool Occurrence: 1 Stool Appearance: Type 5 [place] Stool Chart Stool Color: Michael Stool Amount: [...] to Admission? Acute Rehabilitation Care Facility Name [facility] Support Systems Children;Family Members Is PCP listed on facesheet correct? No Who does patient report as PCP? Was seeing a Gloria Fitzgerald Quality of Support System Good Follow Up Assigned To: Referral not needed concern identified and addressed by Dramatic Critic Anticipated post-acute care needs Acute Rehabilitation Facility Repisodic List provided N/A - Resumption care. Patient active with post acute partner prior to admission Actual Discharge Plan 05/01/2025 NORA Initial: NORA spoke with pt at bedside. Pt alert and oriented x 3 and reports needing some assistance currently ADLs due to her recent TMA. Pt reports she admitted from [facility] and would like to go back to finish rehab. Resumption of care referral sent. Pt stated that prior to rehab and being in the hospital, she had been staying with her sister. Pt reports [facility] was working with her using a 2WW and cane. Reports she also has a WC at her sisters. Pt reports sister will transport her. Pt repors she was seeing a PCP through [facility]? and now using [facility] on [address] Pt reports no [...] 8:21 PM EDTAssociated Problem(s): Coronary arteriosclerosis in [place] artery // Hx of CABG History of [...] Wound Dehiscence Pt presents per ems from [facility], toes amputated on left foot, here for [...] Provider, Historical nalOXone (NARCAN) 4 mg/actuation Nasl Raymond, Non-Aerosol 0.1 mL by Nasal route as needed for OpioidReversal. Raymond the contents of one device (0.1mL) into one nostril upon signs of opioid overdose. Call 911. May repeat dose in other nostril if no response within 2-3 minutes. 02/04/25 Flaco Caban MD nalOXone (NARCAN) 4 mg/actuation Nasl Raymond, Non-Aerosol 0.1 mL by Nasal route as needed for OpioidReversal. Raymond the contents of one device (0.1mL) into [...] IR REVAS FEM POP ART UNILAT W PHARMACY DIRECTOR 01/30/2025 IR REVAS FEM POP ART UNILAT W PHARMACY DIRECTOR 01/30/2025 Lawrence Wolf MD EDG IR [...] Paroxysmal atrial fibrillation (HCC) Coronary arteriosclerosis in [place] artery // Hx of CABG Primary hypertension [...] foot, left (HCC) Noted Coronary arteriosclerosis in [place] artery // Hx of CABG History of [...] NOTE PATIENT NAME: Skyler Bautista MR #: [id number] : 1940 DATE: 05/24/2025 SURGEON: LAWRENCE WOLF MD PRESS SETTER: see op log ANESTHESIA: General PREOPERATIVE DIAGNOSES: [...] bleeding, infection and risk of post operative FL and hematomata and need for further debridement [...] MD - 05/24/2025 11:[address] [facility] OPERATIVE/PROCEDURE NOTE Skyler Bautista May 24, 2025 Body mass index is 21.95 kg/m??. PRE-OP DIAGNOSIS: PAD (peripheral artery disease) [I73.9] Critical limb ischemia of left lower extremity (HCC) [I70.222] POST-OP DIAGNOSIS: PAD (peripheral artery disease) [I73.9]Critical limb ischemia of left lower extremity (HCC) [I70.222] PROCEDURE(S): Left Above Knee Amputation SURGEON(S): Surgeons and Role: * Lawrence Wlof MD - Primary PRESS SETTER(S): see op log ANESTHESIA: General w/Block SPECIMENS: [...] REPORT PATIENT NAME: Skyler Bautista MR #: [id number] : 1940 DATE OF PROCEDURE: 05/10/2025 PREOPERATIVE DIAGNOSES: LLE critical limb ischemia, History of L TMA, PAD POSTOPERATIVE DIAGNOSES: Same PROCEDURE PERFORMED: 1. US guided access of the right common femoral artery 2. Abdominal aortogram. Selection of L SFA via R PARENT TRAINER (3rd order) with left lower extremity angiogram. Selection of PHARMACY DIRECTOR with additional angiogram. Radiographic supervision and [...] TPT and peroneal artery, reconstitution of proximal PHARMACY DIRECTOR with mid and distal PHARMACY DIRECTOR with multifocal severe stenosis of proximal andmid PHARMACY DIRECTOR but occluded distally without reconstitution. Significant [...] with severe stenosis, patent proximal and mid PHARMACY DIRECTOR with multifocal severe stenosis, patent peroneal artery Significant small vessel disease in L foot INDICATIONS: Skyler aButista is a 84 y.o. female with PMHx significant for PAD s/p pelvic angiogram with bilateral NILAY stents s/p LLE angiogram with PHARMACY DIRECTOR of popliteal artery, TPT and peroneal [...] a hemostat. Under ultrasound guidance, the R PARENT TRAINER was accessed using a micropuncture needle. X-ray [...] an 11 cm 5 Fr sheath. Next, [employer] wire and Omniflush catheter were advanced to [...] and catheter were used to select the PHARMACY DIRECTOR to better evaluate if it reconstituted distally. After the PHARMACY DIRECTOR was selected, an angiogram was obtained, [...] procedure. SUMMARY: Significant small vessel disease. Occluded PHARMACY DIRECTOR and DAREN distally without reconstitution. RECOMMENDATIONS: Bed rest for 3 hours. Recommend proximal LLE amputation Voice recognition technology was used to complete this note, and it may contain unintended errors despite the food writer's best efforts to proofread it. Please contact me with questions. Signed: Lawrence Wolf MD * Lawrence Wolf MD - 05/10/2025 2:[address] [facility] ENDOVASCULAR PROCEDURE NOTE Skyler Bautista 05/10/25 PRE-OP DIAGNOSIS: L TMA dehiscence and necrosis, PAD POST-OP DIAGNOSIS: Same PROCEDURE(S): Ultrasound guided R PARENT TRAINER access Abdominal aortogram. Selection of L SFA via R PARENT TRAINER (3rd order) with LLE angiogram. Selection of PHARMACY DIRECTOR with additional angiogram RLE angiogram RADIATION: 309 mGy FLUORO: 27.6 min SEDATION: General anesthesia CONTRAST: 68 mL SURGEON: Lawrence Wolf MD ANESTHESIA: Local, conscious sedation ESTIMATED BLOOD LOSS (mls): 5 mL LLE FINDINGS: PARENT TRAINER stenosis Patent popliteal and TPT with severe stenosis Patent proximal PHARMACY DIRECTOR but occluded distally without reconstitution Patent DAREN with multifocal severe stenosis, occlusion at the level of the ankle and no distal reconstitution Significant small vessel disease in L foot DISPOSITION/POST PROC COURSE: PACU and flat for 3 hours documented in this encounter Consult Notes * Luis Manuel Mays MD - 05/26/2025 3:51 PM EDT [facility] [place] Critical Care Consult Note MDM Assessment: Skyler [...] pending. Bcx obtained and pending. Zosyn restarted PHARMACY DIRECTOR, will add Vanc for MRSA coverage. [...] Luis Manuel Mays M.D. Critical Care Medicine [facility] Critical care time: 39 minutes This was [...] IR REVAS FEM POP ART UNILAT W PHARMACY DIRECTOR 01/30/2025 IR REVAS FEM POP ART UNILAT W PHARMACY DIRECTOR 01/30/2025 Lawrence Wolf MD EDG IR [...] true Transportation Needs: No Transportation Needs (05/01/2025) [facility] IP Transportation In the past 12 months, has lack of reliable transportation kept you from medical appointments, meetings, work or from getting things needed for daily living?: No Physical Activity: Inactive (05/01/2025) Exercise Vital Sign Days of Exercise per Week: 0 days Minutes of Exercise per Session: 0 min Stress: No Stress Concern Present (05/01/2025) [facility] [place] [facility] - Occupational Stress Questionnaire Feeling of Stress : Not at all Received from [facility] ([place], [place], [place], [place]) Family and Community Support Intimate Partner Violence: Not At Risk (08/06/2024) Received from [facility] Humiliation, Afraid, Rape, and Kick questionnaire Fear of Current or Ex-Partner: No Emotionally Abused: No Physically Abused: No Sexually Abused: No Housing Stability: Low Risk (08/06/2024) Received from [facility] Housing Stability Vital Sign Unable to [...] BAUTISTA Department: DEPID Room: 3318 Gender: Female Museum Assistant: Sekou : 1940 Requested By: STEPHEN Earl Order Number: [id number] Reading MD: Measurements Intervals Adams Rate: 78 P: 0 IL: 0 QRS: 16 QRSD: 88 T: 27 [...] CARE Palliative Care Consult Note Consult Location: [facility] Length of Stay: 12 - chart [...] helpful to explore this further with floor Lamina Searcher. Support provided along with [facility] role. Patient [...] Wound Dehiscence Pt presents per ems from [facility], toes amputated on left foot, here for [...] History: Past Medical History: Diagnosis Date A-fib ([facility]) Arthritis Blood circulation, collateral CAD (coronary artery disease) Cardiac dysrhythmia Carotid artery occlusion CHF (congestive heart failure) ([facility]) Diabetes mellitus (HCC) not currently on meds,rehab discontued Difficult intravenous access possible use of iv therapy/ultrasound to help with venous access. RIVERA (dyspnea on exertion) Encounter for blood transfusion Fatty liver Glaucoma Heartburn Hyperlipidemia Hypertension Liver disease Mixed hyperlipidemia Peripheral vascular disease Renal disorder Renal insufficiency Shortness of breath Sleep apnea pt has cpap, but is not using. Stroke ([facility]) pt's states around 3 years ago. Urinary incontinence Urinary tract infection Active Hospital Problems: Active Hospital Problems Diagnosis *Diabetic foot infection ([facility]) Wound dehiscence S/P transmetatarsal amputation of foot, left ([facility]) Stage 3a chronic kidney disease (HCC) Anemia in other chronic diseases classified elsewhere PAD (peripheral artery disease) Chronic heart failure with preserved ejection fraction (HCC) Paroxysmal atrial fibrillation (HCC) Coronary arteriosclerosis in [place] artery // Hx of CABG Type 2 diabetes mellitus, without long-term current use of insulin (HCC) Hypertension associated with diabetes ([facility]) Social History: Social History Socioeconomic History Marital [...] true Transportation Needs: No Transportation Needs (05/01/2025) [facility] Transportation In the past 12 months, has lack of reliable transportation kept you from medical appointments, meetings, work or from getting things needed for daily living?: No Physical Activity: Inactive (05/01/2025) Exercise Vital Sign Days of Exercise per Week: 0 days Minutes of Exercise per Session: 0 min Stress: No Stress Concern Present (05/01/2025) [place] [facility] - Occupational Stress Questionnaire Feeling of Stress : Not at all Social Connections: Low Risk (10/30/2023) Received from [facility] ([place], [place], [place], [place]) Family and Community Support Help with Day to Day Activities: Not on file Feeling Lonely or Isolated: Not on file Intimate Partner Violence: Not At Risk (08/06/2024) Received from [facility] Humiliation, Afraid, Rape, and Kick questionnaire Fear of Current or Ex-Partner: No Emotionally Abused: No Physically Abused: No Sexually Abused: No Housing Stability: Low Risk (08/06/2024) Received from [facility] Housing Stability Vital Sign Unable to [...] were not included. Name: Skyler Bautista ADDRESS: [address] [place] [id number] : 1940 AGE: 84 y.o. Hospital: [facility] Requesting Attending: Dr. Aguirre Primary Care [...] with ulcer status post LLE angiogram with PHARMACY DIRECTOR of peroneal, tibioperoneal trunk and popliteal [...] History: 01/30/2025 - Left LE angiogram with PHARMACY DIRECTOR of peroneal and tibioperoneal trunk with 1.5 x 80 mm and 2 x200 balloons. PHARMACY DIRECTOR of the popliteal artery with 3.5 [...] Not Taking nalOXone (NARCAN) 4 mg/actuation Nasl Raymond, Non-Aerosol 0.1 mL by Nasal route as needed for OpioidReversal. Raymond the contents of one device (0.1mL) into one nostril upon signs of opioid overdose. Call 911. May repeat dose in other nostril if no response within 2-3 minutes. 1 Each 0 nalOXone (NARCAN) 4 mg/actuation Nasl Raymond, Non-Aerosol 0.1 mL by Nasal route as needed for OpioidReversal. Raymond the contents of one device (0.1mL) into [...] mg 40 mg Oral Nightly Alyson Guillermo, [facility] 40 mg at 05/02/252153 carvediloL (COREG) tablet 12.5 mg 12.5 mg Oral BID Alyson Guillermo, [facility] 12.5 mg at 05/02/252153 dextrose 50 % solution 25 mL 25 mL Intravenous PRN Rajendra Petty MD (Ronny) dorzolamide-timoloL (COSOPT) 22.3-6.8 mg/mL ophthalmic solution 1 Drop 1 Drop Ophthalmic BID Alyson Guillermo, [facility] 1 Drop at 05/01/252235 gabapentin (NEURONTIN) capsule 300 mg 300 mg Oral Nightly Alyson Guillermo [facility] 300 mg at 05/02/252153 glucagon (GLUCAGEN) injection [...] Drop 1 Drop Ophthalmic Nightly Alyson Guillermo, [facility] 1 Drop at 05/01/252238 LORazepam (ATIVAN) tablet [...] IR REVAS FEM POP ART UNILAT W PHARMACY DIRECTOR 01/30/2025 IR REVAS FEM POP ART UNILAT W PHARMACY DIRECTOR 01/30/2025 Lawrence Wolf MD EDG IR [...] (L) 05/03/2025 GLU 109 (H) 05/03/2025 Radiology: AL US LOWER EXTREMITY ARTERIAL DUPLEX COMPLETE Result [...] was seen in coordination with the physician quality assurance assistant/nurse practitioner. Patient with LLE angiogram with PHARMACY DIRECTOR of popliteal, TPT and peroneal artery [...] completed using voice recognition technology. Despite the food writer's best efforts to proof read, it may [...] IR REVAS FEM POP ART UNILAT W PHARMACY DIRECTOR 01/30/2025 IR REVAS FEM POP ART UNILAT W PHARMACY DIRECTOR 01/30/2025 Lawrence Wolf MD EDG IR [...] true Transportation Needs: No Transportation Needs (05/01/2025) [facility] Transportation In the past 12 months, has lack of reliable transportation kept you from medical appointments, meetings, work or from getting things needed for daily living?: No Physical Activity: Inactive (05/01/2025) Exercise Vital Sign Days of Exercise per Week: 0 days Minutes of Exercise per Session: 0 min Stress: No Stress Concern Present (05/01/2025) [place] [facility] - Occupational Stress Questionnaire Feeling of Stress : Not at all Received from [facility] ([place], [place], [place], [place]) Family and Community Support Intimate Partner Violence: Not At Risk (08/06/2024) Received from [facility] Humiliation, Afraid, Rape, and Kick questionnaire Fear of Current or Ex-Partner: No Emotionally Abused: No Physically Abused: No Sexually Abused: No Housing Stability: Low Risk (08/06/2024) Received from [employer] Housing Stability Vital Sign Unable to Pay [...] permission allowing today's photographs - using the Ahonya mathew. Lab and radiographic data reviewed. Thank [...] Wound Dehiscence Pt presents per ems from [facility], toes amputated on left foot, here for wound check. History obtained via patient. History limitations HPI: Skyler Bautista is a 84 y.o. female with a past medical history significant for the below pertinent for atrial fibrillation, CHF, CAD, prior cardiac arrest who comes from rehab facility at [facility] due to wound dehiscence and concern [...] Ventricular rate persistently at 134. Final Result [facility] Test Date: 2025-04-30 Pat Name: SKYLER BAUTISTA Department: DEPID Room: 3326 Gender: Female Museum Assistant: CHANTEL : 1940 Requested By: DONNIE PLUMMER Order Number: [id number] Reading MD: Isidro Kennedy Measurements Intervals Adams Rate: 134 P: 203 IL: 145 QRS: -6 QRSD: 93 T: -78 [...] None In cases where narcotics are prescribed, [facility] obtained and reviewed. IMPRESSION: 1. Wound dehiscence 2. Typical atrial flutter (HCC) DISPOSITION: Admit Condition at Discharge/Transfer from Department: Stable Donnie Kaur MD Emergency Medicine 04/30/25 Donnie Kaur MD 04/30/25 [id number] documented in this encounter Miscellaneous Notes * [...] Plan 06/06/25: CC Update, no bed at [facility] this date, post acute form completed, s/p [...] MD - 05/28/2025 2:[address] [facility] CDI / HIM Coding Query Documentation PATIENT: SKYLER BAUTISTA : 1940 ADMIT DATE: 04/30/2025 4:07 PM DISCH DATE: RESPONDING PROVIDER #: [id number] PROVIDER QUERY RESPONSE TEXT: Clinically unable to [...] questions or assistance please contact Samuel Cota [facility] Data Steward [phone]) Options provided: -- Sepsis associated with acute [...] on 2L IV FENTANYL X 3 DILAUDID SOLE TACKER ORDERED IV ZOSYN TID IV VANCOMYCIN Q24H HGB 8.0, 8.4, 7.7, 7.3 HCT 20.0, 19.9 PLT 73, 77 PT Recommendation High frequency, high intensity multi-disciplinary therapy for 15 hours per week. CC FOLLOWING FOR DC NEEDS * Utilization Review Notes - Adry Pro RN - 05/24/2025 4:11 PM EDT CONTINUED STAY REVIEW INPT STATUS SINCE 05/01 Diabetic foot infection ([facility]) S/P transmetatarsal amputation of foot, left ([facility]) - Wound dehiscence over previous left TMA [...] for amputation as above Paroxysmal atrial fibrillation ([facility]) - 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 - rate controlled on coreg Type 2 diabetes mellitus, without long-term current use of insulin ([facility]) - A1c 5.3 - diet controlled - not following FSBS Hypertension associated with diabetes ([facility]) - at goal on current rx Chronic heart failure with preserved ejection fraction ([facility]) - Echo 2023 normal EF. - Euvolemic on exam Stage 3a chronic kidney disease ([facility]) - Baseline approx 0.9-1.2. - stable Coronary arteriosclerosis in [place] artery // Hx of CABG - History of CABG - continue lipitor, coreg, ranexa - no chest pain Anemia in other chronic diseases classified elsewhere Pancytopenia ([facility]) - low but stable - b12, folate, [...] arterial studies 05/02 with significant PAD - PARENT TRAINER stenosis Patent popliteal and TPT with severe stenosis Patent proximal PHARMACY DIRECTOR but occluded distally without reconstitution Patent DAREN with multifocal severe stenosis, occlusion at the level of the ankle and no distal reconstitution Significant small vessel disease in L foot Paroxysmal atrial fibrillation (HCC) Heart rate controlled. 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 - PHARMACY DIRECTOR coreg - cardiac monitoring -Rate controlled 05/20/25 Type 2 diabetes mellitus, without long-term current use of insulin ([facility]) Last A1c 4.8 in 03/2024. PHARMACY DIRECTOR meds include none. - hold off on FSBS, correctional algorithm - rpt A1c 5.3 - stable 05/20/25 Hypertension associated with diabetes ([facility]) Well controlled. - PHARMACY DIRECTOR coreg - monitor and adjust as needed -BP stable 05/20/25 Chronic heart failure with preserved ejection fraction ([facility]) Echo 2023 normal EF. Euvolemic on exam - monitor I/O, daily weights - diuresis: PHARMACY DIRECTOR lasix on hold - PHARMACY DIRECTOR coreg -Stable 05/20/25 Stage 3a chronic kidney disease (HCC) Cre 1.05 at admit. Baseline approx 0.9-1.2. -Cr 0.[address] [place] [place] artery // Hx of CABG History of [...] PM EDT [facility]. Cont stay review for diabetic foot infection s/p transmetatarsal amputation of foot, left, PAD. Vascular surgery following. patient flow coordinator to follow for dc planning. * [...] note were not included. IP ORDER IN [facility] 05/01 CONT STAY REVIEW ON TCU [...] I discussed the angiogram findings- the left PARENT TRAINER stenosis could be treated with an endarterectomy, the popliteal artery and TPT stenosis could be treated with repeat angioplasty, and the DAREN could be treated via retrograde access. However, the PHARMACY DIRECTOR and DAREN are distally occluded without [...] surgery. While the patient does have L PARENT TRAINER disease, her L femoral pulse is still [...] Pro RN - 05/10/2025 12:24 PM EDT POLITICAL RESEARCHER INPT STATUS SINCE 05/01 Diabetic foot infection [...] on AC d/t hx of SAH - PHARMACY DIRECTOR coreg - cardiac monitoring -Heart rate 75 Type 2 diabetes mellitus, without long-term current use of insulin (HCC) Last A1c 4.8 in 03/2024. PHARMACY DIRECTOR meds include none. - hold off on FSBS, correctional algorithm - rpt A1c 5.3 Hypertension associated with diabetes (HCC) Well controlled. - PHARMACY DIRECTOR coreg - monitor and adjust as needed -Blood pressure 128/66 Chronic heart failure with preserved ejection fraction (HCC) Echo 2023 normal EF. Euvolemic on exam - monitor I/O, daily weights - diuresis: PHARMACY DIRECTOR lasix on hold - PHARMACY DIRECTOR coreg Stage 3a chronic kidney disease (HCC) Cre 1.05 at admit. Baseline approx 0.9-1.2. - caution with contrast - note plans for angiogram - monitor renal function closely - avoid hypotension, nephrotoxins as able Coronary arteriosclerosis in [place] artery // Hx of CABG History of [...] (HCC) S/P transmetatarsal amputation of foot, left ([facility]) Wound dehiscence over previous left TMA site. [...] week - continue lipitor Paroxysmal atrial fibrillation ([facility]) Heart rate controlled. 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 - PHARMACY DIRECTOR coreg - cardiac monitoring Type 2 diabetes mellitus, without long-term current use of insulin ([facility]) Last A1c 4.8 in 03/2024. PHARMACY DIRECTOR meds include none. - hold off on FSBS, correctional algorithm - rpt A1c 5.3 Hypertension associated with diabetes ([facility]) Well controlled. - PHARMACY DIRECTOR coreg - monitor and adjust as needed Chronic heart failure with preserved ejection fraction ([facility]) Echo 2023 normal EF. Euvolemic on exam - monitor I/O, daily weights - diuresis: PHARMACY DIRECTOR lasix on hold - PHARMACY DIRECTOR coreg Stage 3a chronic kidney disease ([facility]) Cre 1.05 at admit. Baseline approx 0.9-1.2. - caution with contrast - note plans for angiogram - monitor renal function closely - avoid hypotension, nephrotoxins as able Coronary arteriosclerosis in [place] artery // Hx of CABG History of [...] documented in this encounter Plan of Treatment Pending Results Name Type Priority Associated Diagnoses [...] limb ischemia of left lower extremity (HCC) [place] AMPUTATION THIGH THROUGH FEMUR ANY LEVEL 05/24/2025 8:06 AM EDT PAD (peripheral artery disease) Critical limb ischemia of left lower extremity (HCC) Special Needs pre op block per anethesia th ANES GUIDANCE FOR NERVE BLOCK STAT 05/24/2025 [...] testing RED BLOOD CELLS REQUEST PAULETTE 05/23/20 10:33 AM EDT RED BLOOD CELLS REQUEST PAULETTE 05/23/20 10:33 AM EDT RED BLOOD CELLS REQUEST PAULETTE 05/23/20 10:33 AM EDT ANTIBODY SCREEN IGG Routine [...] progress. Palliative Care Consult Note Consult Location: [facility] Length of Stay: 12 - chart [...] helpful to explore this further with floor Lamina Searcher.Support provided along with [facility] role. Patient reports [...] adult children, majority rules, /. Surrogate by: DAVIDK per KRAneesh Disposition: TBD, [...] Wound Dehiscence Pt presents per ems from [facility], toes amputated on left foot,here for wound [...] Active Hospital Problems Diagnosis *Diabetic foot infection ([facility]) Wound dehiscence S/P transmetatarsal amputation of foot, left (HCC) Stage 3a chronic kidney disease (HCC) Anemia in other chronic diseases classified elsewhere PAD (peripheral artery disease) Chronic heart failure with preserved ejection fraction (HCC) Paroxysmal atrial fibrillation (HCC) Coronary arteriosclerosis in [place] artery // Hx of CABG Type 2 diabetes mellitus, without long-term current use of insulin (HCC) Hypertension associated with diabetes ([facility]) Social History: Social History Socioeconomic History Marital [...] true Transportation Needs: No Transportation Needs (05/01/2025) [facility] IP Transportation In the past 12 months, has lack of reliable transportation kept you frommedical appointments, meetings, work or from getting things needed fordaily living?: No Physical Activity: Inactive (05/01/2025) Exercise Vital Sign Days of Exercise per Week: 0 days Minutes of Exercise per Session: 0 min Stress: No Stress Concern Present (05/01/2025) [place] [facility] - Occupational StressQuestionnaire Feeling of Stress : Not at all Social Connections: Low Risk (10/30/2023) Received from [facility] ([place], [place], [place], [place]) Family and Community Support Help with Day to Day Activities: Not on file Feeling Lonely or Isolated: Not on file Intimate Partner Violence: Not At Risk (08/06/2024) Received from [facility] Humiliation, Afraid, Rape, and Kick questionnaire Fear of Current or Ex-Partner: No Emotionally Abused: No Physically Abused: No Sexually Abused: No Housing Stability: Low Risk (08/06/2024) Received from [facility] Housing Stability Vital Sign Unable to [...] were not included. Name: Skyler Bautista ADDRESS: [address] [place] [address] : 1940 AGE: 84 y.o. Hospital: [facility] Requesting Attending: Dr. Aguirre Primary Care [...] PAD with ulcer statuspost LLE angiogram with PHARMACY DIRECTOR of peroneal, tibioperoneal trunk andpopliteal arteries [...] History: 01/30/2025 - Left LE angiogram with PHARMACY DIRECTOR of peroneal and tibioperoneal trunkwith 1.5 x 80 mm and 2 x 200 balloons. PHARMACY DIRECTOR of the popliteal artery with3.5 x [...] Not Taking nalOXone (NARCAN) 4 mg/actuation Nasl Raymond, Non-Aerosol 0.1 mL by Nasalroute as needed for Opioid Reversal. Raymond the contents of one device(0.1mL) into one nostril upon signs of opioid overdose. Call 911. Mayrepeat dose in other nostril if no response within 2-3 minutes. 1 Each 0 nalOXone (NARCAN) 4 mg/actuation Nasl Raymond, Non-Aerosol 0.1 mL by Nasalroute as needed for Opioid Reversal. Raymond the contents of one device(0.1mL) into one [...] 40 mg 40 mg Oral Nightly [facility] 40 mg at 05/02/252153 carvediloL (COREG) tablet 12.5 mg 12.5 mg Oral BID Alyson Guillermo NP12.5 mg at 05/02/252153 dextrose 50 % solution 25 mL 25 mL Intravenous PRN Aleksandra Petty MD (Ronny) dorzolamide-timoloL (COSOPT) 22.3-6.8 mg/mL ophthalmic solution 1 Drop 1Drop Ophthalmic BID Alyson Guillermo NP 1 Drop at 05/01/25 223 gabapentin (NEURONTIN) capsule 300 mg 300 mg [...] 1 Drop 1 DropOphthalmic Nightly Alyson Guillermo [facility] 1 Drop at 05/01/25 223 LORazepam (ATIVAN) tablet 0.5 mg 0.5 mg Oral Nightly Marcell Aguirre MD0.5 mg at 05/02/252153 metFORMIN (GLUCOPHAGE) tablet 500 [...] tablet 10 mg 10 mg Oral Q4H PRMarcell Dickson MD 10 mg at 05/03/25 0253 pantoprazole [...] IR REVAS FEM POP ART UNILAT W PHARMACY DIRECTOR 01/30/2025 IR REVAS FEM POP ART UNILAT W PHARMACY DIRECTOR 01/30/2025 Lawrence Wolf MD EDG IR IR ULTRASOUND GUIDED VASCULAR ACCESS 01/17/2025 IR ULTRASOUND GUIDED VASCULAR ACCESS 01/17/2025 Lawrence Wolf MD FLOIR IR ULTRASOUND GUIDED VASCULAR ACCESS 01/30/2025 IR ULTRASOUND GUIDED VASCULAR ACCESS 01/30/2025 Lawrence Wolf MD EDGIR JOINT REPLACEMENT TOE SURGERY Left 01/31/2025 Left foot hallux amputation; Surgeon: Dacia Mills DPM;Location: ED MAIN OR; Service: Podiatry No family [...] was seen in coordination with the physician quality assurance assistant/nursepractitioner. Patient with LLE angiogram with PHARMACY DIRECTOR of popliteal, TPT and peroneal artery01/29 s/p L TMA who presents with necrosis [...] EDT IP CONSULT TO NUTRITION Routine 05/01/20 3:48 PM EDT GLUCOSE METER POC Routine [...] IR REVAS FEM POP ART UNILAT W PHARMACY DIRECTOR 01/30/2025 IR REVAS FEM POP ART UNILAT W PHARMACY DIRECTOR 01/30/2025 Lawrence Wolf MD EDG IR [...] true Transportation Needs: No Transportation Needs (05/01/2025) [facility] Transportation In the past 12 months, has lack of reliable transportation kept you frommedical appointments, meetings, work or from getting things needed fordaily living?: No Physical Activity: Inactive (05/01/2025) Exercise Vital Sign Days of Exercise per Week: 0 days Minutes of Exercise per Session: 0 min Stress: No Stress Concern Present (05/01/2025) [place] [facility] - Occupational StressQuestionnaire Feeling of Stress : Not at all Received from [facility] ([place], [place], [place], [place]) Family and Community Support Intimate Partner Violence: Not At Risk (08/06/2024) Received from [facility] Humiliation, Afraid, Rape, and Kick questionnaire Fear of Current or Ex-Partner: No Emotionally Abused: No Physically Abused: No Sexually Abused: No Housing Stability: Low Risk (08/06/2024) Received from [facility] Housing Stability Vital Sign Unable to [...] consented permission allowing today's photographs - usingthe Ahonya mathew. Lab and radiographic data reviewed. Thank you for asking me to participate in your patient's care. Jovanni Montesinos, RADIOLOGY RN 05/01/2025 BLOOD GAS, VENOUS STAT 04/30/2025 5:56 [...] 2.4 mg/dL 06/10/2025 11:11 AM EDT [facility] Blood VENOUS BLOOD / Unknown Venipuncture / Unknown 06/10/2025 10:32 AM EDT 06/10/2025 10:37 AM EDT us Trino Montiel MD CHEMISTRY ORDERABLES Final Re sult [facility] [address] [facility] , [place] [address] * (ABNORMAL) COMPREHENSIVE METABOLIC PANEL (06/10/2025 10:32 AM EDT) Sodium 137 136 - 145 mmol/L 06/10/2025 11:11 AM EDT [facility] Potassium 3.9 3.5 - 5.0 mmol/L 06/10/2025 11:11 AM EDT [facility] Chloride 104 98 - 107 mmol/L 06/10/2025 11:11 AM EDT [facility] Total CO2 22 22 - 29 mmol/L 06/10/2025 11:11 AM EDT [facility] Anion Gap 11 7 - 16 mmol/L 06/10/2025 11:11 AM EDT [facility] Calcium 8.8 8.8 - 10.4 mg/dL 06/10/2025 11:11 AM EDT [facility] Glucose Lvl 177(H) 70 - 99 mg/dL 06/10/2025 11:11 AM EDT [facility] BUN 23 8 - 23 mg/dL 06/10/2025 11:11 AM EDT [facility] Creatinine 1.14 0.51 - 1.30 mg/dL 06/10/2025 11:11 AM EDT [facility] Albumin 3.4 3.2 - 4.6 gm/dL 06/10/2025 11:11 AM EDT [facility] Total Protein 6.5 6.4 - 8.3 gm/dL 06/10/2025 11:11 AM EDT [facility] Bili Total 0.6 0.2 - 1.3 mg/dL 06/10/2025 11:11 AM EDT [facility] ALT 18 <=41 U/L 06/10/2025 11:11 AM EDT [facility] AST 26 <=40 U/L 06/10/2025 11:11 AM EDT [facility] Alk Phos 159(H) 36 - 123 U/L 06/10/2025 11:11 AM EDT [facility] eGFR (CKD-EPIcr 2020) 47(L) >=60 mL/min/1.7 3 m2 06/10/2025 11:11 AM EDT [facility] Comment:Estimated GFR was ca lculated using the CKD-EPIcr (2020) equation refit without race. The equation is recommended by the National Kidney Foundation - [place] [employer] of Nephrology Task Force. Blood VENOUS BLOOD / Unknown Venipuncture / Unknown 06/10/2025 10:32 AM EDT 06/10/2025 10:37 AM EDT Trino Montiel MD CHEMISTRY ORDERABLES Final Re sult [facility] [address] [facility], [place] [address] * (ABNORMAL) CBC (06/10/2025 10:32 AM EDT) [...] 12.5 fL 06/10/2025 10:47 AM EDT [facility] Blood VENOUS BLOOD / Unknown Venipuncture / Unknown 06/10/2025 10:32 AM EDT 06/10/2025 10:37 AM EDT Trino Montiel MD HEMATOLOGY ORDERABLES Final R esult [facility] [address] [facility] [address] [address], [address] [place], [place] [id number] * ECG AND WAVEFORMS - TELEMETRY (06/10/2025 7:00 AM EDT) ECG INTERPRET Atrial Fib [facility] Comment:2 PVCs 06/10/2025 7:00 AM EDT Narrative [facility] - 06/10/2025 9:23 AM EDT ROUTINE SDP QRS 0.08 QT 0.41 See Clinical Report link for waveform capture us Unknown Provider POINT OF CARE CARDIOLOGY Final Result Performing Organization Address [facility] Co de Phone Number [facility] [address] [place] [address] * XR CHEST AP PORTABLE (06/09/2025 9:10 [...] office of the ordering clinician. Alyson Guillermo [facility] IMG DIAGNOSTIC IMAGING ORDERA BLES Final Result * (ABNORMAL) URINE CULTURE (NO STAIN) (06/09/2025 11:46 AM EDT) Pathologist [facility] Culture Positive Growth(A) 06/11/2025 10:16 AM EDT [facility] Culture >100,000 CFU/mL Klebsiella species SUSCEPTIBI LITY RESULT 06/11/2025 10:16 AM EDT [facility] Culture >100,000 CFU/mL Escherichia coli SUSCEPTIBI LITY RESULT 06/11/2025 10:16 AM EDT [facility] Culture 50,000 CFU/mL Proteus mirabilis SUSCEPTIBI LITY RESULT 06/11/2025 10:16 AM EDT [facility] Comment:No further workup. Urine STRUCTURE OF URINARY [...] SUSCEPTIBILITY RESULT >2/38 ug/mL: Resistant Brenda Arriaga RADIOLOGY RN MICROBIOLOGY - GENER AL ORDERABLES Final Result Performing Organization Address [facility] Co de Phone Number [facility], [address], [place] [address] * EXTRA HUITRON URINE CX (06/09/2025 11:46 AM EDT) Urine STRUCTURE OF URINARY TRACT PROPER / Unknown 06/09/2025 11:46 AM EDT 06/09/2025 11:49 AM EDT Brenda Arriaga RADIOLOGY RN MICROBIOLOGY - GENER AL ORDERABLES Final Result Performing Organization Address [facility] [place] [address] * (ABNORMAL) URINALYSIS REFLEX (06/09/2025 11:46 AM EDT) UA Color Yellow 06/09/2025 12:13 PM EDT [facility] UA Appear Cloudy(A) Clear 06/09/2025 12:13 PM EDT [facility] UA Glucose Negative Negative mg/dL 06/09/2025 12:13 PM EDT [facility] UA Ketones Negative Negative mg/dL 06/09/2025 12:13 PM EDT [facility] UA Blood 1+ (0.06 - 0.1 mg/dL)(A) Negative 06/09/2025 12:13 PM EDT [facility] UA pH 6.5 5.0 - 8.0 pH 06/09/2025 12:13 PM EDT [facility] UA Protein 2+ (100-200 mg/dL)(A) Negative mg/dL 06/09/2025 12:13 PM EDT [facility] UA Urobilinogen Normal <=1 mg/dL 12:13 PM [...] al Result [facility] [address] [facility] , [address] [place] [id number] * ECG AND WAVEFORMS - TELEMETRY (06/09/2025 7:00 AM EDT) ECG INTERPRET Atrial Fib [facility] 06/09/2025 7:00 AM EDT Narrative [facility] - 06/09/2025 8:53 AM EDT RT ROUTINE QRS 0.11 See Clinical Report link for waveform capture us Unknown Provider POINT OF CARE CARDIOLOGY Final Result Performing Organization Address [facility] Co de Phone Number [facility] [address] [place] [address] * ECG AND WAVEFORMS - TELEMETRY (06/08/2025 8:23 PM EDT) ECG INTERPRET Atrial Fib [facility] 06/08/2025 8:23 PM EDT Narrative [facility] - 06/08/2025 8:25 PM EDT PVC'S-ROUTINE /KD QRS 0.09 See Clinical Report link for waveform capture us Unknown Provider POINT OF CARE CARDIOLOGY Final Result Performing Organization Address [facility] de Phone Number [facility] [address] [place] [address] * ECG AND WAVEFORMS - TELEMETRY (06/08/2025 8:24 AM EDT) ECG INTERPRET Atrial Fib [facility] 06/08/2025 8:24 AM EDT Narrative [facility] - 06/08/2025 9:15 AM EDT RT ROUTINE QRS 0.08 See Clinical Report link for waveform capture us Unknown Provider POINT OF CARE CARDIOLOGY Final Result Performing Organization Address [facility] de Phone Number [facility] [address] [place] [address] * ECG AND WAVEFORMS - TELEMETRY (06/07/2025 9:25 PM EDT) ECG INTERPRET Atrial Fib [facility] 06/07/2025 9:25 PM EDT Narrative [facility] - 06/07/2025 9:34 PM EDT PVC S -ROUTINE (AM) QRS 0.11 See Clinical Report link for waveform capture us Unknown Provider POINT OF CARE CARDIOLOGY Final Result Performing Organization Address [facility] Co de Phone Number [facility] [address] [place] [address] * ECG AND WAVEFORMS - TELEMETRY (06/07/2025 9:25 PM EDT) ECG INTERPRET Atrial Fib [facility] 06/07/2025 9:25 PM EDT Narrative [facility] - 06/07/2025 9:34 PM EDT ROUTINE (AM) QRS 0.11 See Clinical Report link for waveform capture us Unknown Provider POINT OF CARE CARDIOLOGY Final Result [facility] [address] [place] [address] * ECG AND WAVEFORMS - TELEMETRY (06/07/2025 8:07 AM EDT) Pathologist [facility] ECG INTERPRET Atrial Fib [facility] 06/07/2025 8:07 AM EDT Narrative [facility] - 06/07/2025 8:09 AM EDT EH - ROUTINE; PVCs QRS 0.10 See Clinical Report link for waveform capture us Unknown Provider POINT OF CARE CARDIOLOGY Final Result Performing Organization Address City/[facility]/ZIP Co de Phone Number [facility] [address] [place] [address] * (ABNORMAL) BASIC METABOLIC PANEL (06/07/2025 7:09 [...] 8:30 AM EDT [facility] Anion Gap 11 7 - 16 mmol/L 06/07/2025 8:30 AM EDT [facility] Calcium 8.7(L) 8.8 - 10.4 mg/dL 06/07/2025 8:30 AM EDT [facility] Glucose Lvl 114(H) 70 - 99 mg/dL 06/07/2025 8:30 AM EDT [facility] BUN 19 8 - 23 mg/dL 06/07/2025 8:30 AM EDT [facility] Creatinine 1.07 0.51 - 1.30 mg/dL 06/07/2025 8:30 AM EDT [facility] eGFR (CKD-EPIcr 2020) 51(L) >=60 mL/min/1.7 3 m2 06/07/2025 8:30 AM EDT [facility] Comment:Estimated GFR was ca lculated using the CKD-EPIcr (2020) equation refit without race. The equation is recommended by the [employer] - [place] [employer]ph[employer] Task Force. Blood VENOUS BLOOD / Unknown Venipuncture / Unknown 06/07/2025 7:09 AM EDT 06/07/2025 7:57 AM EDT us Trino Montiel MD CHEMISTRY ORDERABLES Final Re sult [address], [address] [place] [id number] * ECG AND WAVEFORMS - TELEMETRY (06/06/2025 7:05 PM EDT) ECG INTERPRET Atrial Fib [facility] 06/06/2025 7:05 PM EDT Narrative [facility] - 06/06/2025 8:28 PM EDT ROUTINE/PVC/PAC/af IL 0.20 QRS 0.11 RR 0.80 QT 0.49 QTc 0.55 See Clinical Report link for waveform capture us Unknown Provider POINT OF CARE CARDIOLOGY Final Result [facility] [address] [place] [id number] * ECG AND WAVEFORMS - TELEMETRY (06/06/2025 7:05 PM EDT) ECG INTERPRET Atrial Fib [facility] 06/06/2025 7:05 PM EDT Narrative [facility] - 06/06/2025 8:27 PM EDT ROUTINE/PVC/PAC/af IL 0.20 QRS 0.11 RR 0.80 QT 0.49 QTc 0.55 See Clinical Report link for waveform capture us Unknown Provider POINT OF CARE CARDIOLOGY Edited Result - Final Performing Organization Address [facility] Co de Phone Number [facility] [address] [place] [address] * ECG AND WAVEFORMS - TELEMETRY (06/06/2025 7:34 AM EDT) ECG INTERPRET Atrial Fib [facility] 06/06/2025 7:34 AM EDT Narrative [facility] - 06/06/2025 7:46 AM EDT ROUTINE W/ PVC (LZ) QRS 0.10 See Clinical Report link for waveform capture us Unknown Provider POINT OF CARE CARDIOLOGY Final Result Performing Organization Address [facility] de Phone Number [facility] [address] [place] [address] * ECG AND WAVEFORMS - TELEMETRY (06/05/2025 7:05 PM EDT) ECG INTERPRET Sinus Rhythm w/ First Degree AVB [facility] 06/05/2025 7:05 PM EDT Narrative [facility] - 06/05/2025 8:21 PM EDT ROUTINE/1stAVB/IVCD/af IL 0.22 QRS 0.12 RR 0.66 QT 0.40 QTc 0.49 See Clinical Report link for waveform capture us Unknown Provider POINT OF CARE CARDIOLOGY Final Result Performing Organization Address [facility] de Phone Number [facility] [address] [place] [address] * MAGNESIUM LEVEL (06/05/2025 7:27 AM EDT) Magnesium 1.6 1.6 - 2.4 mg/dL 06/05/2025 8:27 AM EDT [facility], [facility] Blood VENOUS BLOOD / Unknown Venipuncture / Unknown 06/05/2025 7:27 AM EDT 06/05/2025 7:36 AM EDT us Trino Montiel MD CHEMISTRY ORDERABLES Final Re sult [facility] 1 [facility], [place] [address] * (ABNORMAL) COMPREHENSIVE METABOLIC PANEL (06/05/2025 7:27 [...] 8:27 AM EDT [facility] Bili Total 0.6 0.2 - 1.3 mg/dL 06/05/2025 8:27 AM EDT [facility] ALT 16 <=41 U/L 06/05/2025 8:27 AM EDT [facility] AST 29 <=40 U/L 06/05/2025 8:27 AM EDT [facility] Alk Phos 140(H) 36 - 123 U/L 06/05/2025 8:27 AM EDT [facility] eGFR (CKD-EPIcr 2020) 54(L) >=60 mL/min/1.7 3 m2 06/05/2025 8:27 AM EDT [facility] Comment:Estimated GFR was ca lculated using the CKD-EPIcr (2020) equation refit without race. The equation is recommended by the [employer] - [place] [employer] Neph[employer] Task Force. Blood VENOUS BLOOD / Unknown Venipuncture / Unknown 06/05/2025 7:27 AM EDT 06/05/2025 7:36 AM EDT us Trino Montiel MD CHEMISTRY ORDERABLES Final Re sult [facility], [facility] 1 [facility] , [address] [place] [phone] * (ABNORMAL) CBC (06/05/2025 7:27 AM EDT) WBC 4.8 3.7 - 10.3 x10(3)/mcL 06/05/2025 7:55 AM EDT [facility], [facility] RBC 2.44(L) 3.90 - 5.20 x10(6)/mcL 06/05/2025 7:55 AM EDT [facility], [facility] Hgb 8.4(L) 11.2 - 15.7 g/dL 06/05/2025 7:55 AM EDT [facility], [facility] Hct 26.9(L) 34.0 - 45.0 % 06/05/2025 7:55 AM EDT [facility], [facility] MCV 110.2(H) 80.0 - 100.0 fL 06/05/2025 7:55 AM EDT [facility], [facility] MCH 34.4(H) 26.0 - 34.0 pg 06/05/2025 7:55 AM EDT [facility], [facility] MCHC 31.2 30.7 - 35.5 g/dL 06/05/2025 7:55 AM EDT [facility], [facility] RDW 19.1(H) <=14.9 % 06/05/2025 7:55 AM EDT [facility] Platelet 106(L) 155 - 369 x10(3)/mcL 06/05/2025 7:55 AM EDT [facility] MPV 12.4 8.8 - 12.5 fL 06/05/2025 7:55 AM EDT [facility] Blood VENOUS BLOOD / Unknown Venipuncture / Unknown 06/05/2025 7:27 AM EDT 06/05/2025 7:36 AM EDT us Trino Montiel MD HEMATOLOGY ORDERABLES Final R esult Performing Organization Address City/[facility]/ZIP Co de Phone Number [facility], [address], [place] [address] * ECG AND WAVEFORMS - TELEMETRY (06/05/2025 7:09 AM EDT) ECG INTERPRET Atrial Fib [facility] 06/05/2025 7:09 AM EDT Narrative [facility] - 06/05/2025 8:00 AM EDT ROUTINE W/ PVC (LZ) QRS 0.11 See Clinical Report link for waveform capture us Unknown Provider POINT OF CARE CARDIOLOGY Final Result [facility] [address] [place] [address] * ECG AND WAVEFORMS - TELEMETRY (06/04/2025 7:10 PM EDT) ECG INTERPRET Atrial Fib [facility] 06/04/2025 7:10 PM EDT Narrative [facility] - 06/04/2025 8:04 PM EDT ROUTINE/PVCs/af QRS 0.07 See Clinical Report link for waveform capture us Unknown Provider POINT OF CARE CARDIOLOGY Final Result [facility] [address] [place] [address] * XR CHEST PA AND LATERAL (06/04/2025 [...] 06/04/2025 8:12 AM EDT [facility] RBC 2.30(L) 3.90 - 5.20 x10(6)/mcL 06/04/2025 [...] [facility] Platelet 121(L) 155 - 369 x10(3)/mcL 06/04/2025 8:12 AM EDT [facility] MPV 12.4 8.8 - 12.5 fL 06/04/2025 8:12 AM EDT [facility] Blood VENOUS BLOOD / Unknown Venipuncture / Unknown 06/04/2025 7:52 AM EDT 06/04/2025 7:57 AM EDT us Stephen Pickard MD HEMATOLOGY ORDERABLES Final Result [facility], [facility] [address] [facility] , [place] [address] * (ABNORMAL) RENAL FUNCTION PANEL (06/04/2025 7:52 AM EDT) Sodium 136 136 - 145 mmol/L 06/04/2025 8:30 AM EDT [facility] Potassium 4.0 3.5 - 5.0 mmol/L 06/04/2025 8:30 AM EDT [facility] Chloride 103 98 - 107 mmol/L 06/04/2025 8:30 AM EDT [facility] Total CO2 23 22 - 29 mmol/L 06/04/2025 8:30 AM EDT [facility] Anion Gap 10 7 - 16 mmol/L 06/04/2025 8:30 AM EDT [facility], [facility] Calcium 8.8 8.8 - 10.4 mg/dL 06/04/2025 8:30 AM EDT [facility], [facility] Glucose Lvl 135(H) 70 - 99 mg/dL 06/04/2025 8:30 AM EDT [facility], [facility] BUN 14 8 - 23 mg/dL 06/04/2025 8:30 AM EDT [facility], [facility] Creatinine 0.92 0.51 - 1.30 mg/dL 06/04/2025 8:30 AM EDT [facility], [facility] Albumin 3.1(L) 3.2 - 4.6 gm/dL 06/04/2025 8:30 AM EDT [facility], [facility] Phosphorus 3.7 2.5 - 4.5 mg/dL 06/04/2025 8:30 AM EDT [facility] eGFR (CKD-EPIcr 2020) 61 >=60 mL/min/1.7 3 m2 06/04/2025 8:30 AM EDT [facility] Comment:Estimated GFR was ca lculated using the CKD-EPIcr (2020) equation refit without race. The equation is recommended by the [employer] Kid[employer] - [place] [employer] Neph[employer] Task Force. Blood VENOUS BLOOD / Unknown Venipuncture / Unknown 06/04/2025 7:52 AM EDT 06/04/2025 7:57 AM EDT us Stephen Pickard MD CHEMISTRY ORDERABLES Final R esult [facility], [facility] [address] [facility] , [place] [address] * ECG AND WAVEFORMS - TELEMETRY (06/04/2025 7:29 AM EDT) ECG INTERPRET Atrial Fib [facility] 06/04/2025 7:29 AM EDT Narrative [facility] - 06/04/2025 8:19 AM EDT ROUTINE W/ PVC (LZ) QRS 0.11 See Clinical Report link for waveform capture us Unknown Provider POINT OF CARE CARDIOLOGY Final Result Performing Organization Address [facility] Co de Phone Number [facility] [address] [place] [address] * ECG AND WAVEFORMS - TELEMETRY (06/03/2025 8:07 PM EDT) ECG INTERPRET Atrial Fib [facility] 06/03/2025 8:07 PM EDT Narrative [facility] - 06/03/2025 8:11 PM EDT w/ PVC ROUTINE / RG See Clinical Report link for waveform capture us Unknown Provider POINT OF CARE CARDIOLOGY Final Result Performing Organization Address [facility] Co de Phone Number [facility] [address] [place] [address] * ECG AND WAVEFORMS - TELEMETRY (06/03/2025 7:00 AM EDT) ECG INTERPRET Atrial Fib [facility] 06/03/2025 7:00 AM EDT Narrative [facility] - 06/03/2025 8:44 AM EDT RS, ROUTINE, PVCS QRS 0.08 See Clinical Report link for waveform capture us Unknown Provider POINT OF CARE CARDIOLOGY Final Result Performing Organization Address [facility] de Phone Number [facility] [address] [place] [address] * (ABNORMAL) RENAL FUNCTION PANEL (06/03/2025 5:56 AM EDT) Sodium 134(L) 136 - 145 mmol/L 06/03/2025 6:51 AM EDT [facility] Potassium 3.7 3.5 - 5.0 mmol/L 06/03/2025 6:51 AM EDT [facility] Chloride 103 98 - 107 mmol/L 06/03/2025 6:51 AM EDT [facility] Total CO2 22 22 - 29 mmol/L 06/03/2025 6:51 AM EDT [facility] Anion Gap 9 7 - 16 mmol/L 06/03/2025 6:51 AM EDT [facility] Calcium 8.4(L) 8.8 - 10.4 mg/dL 06/03/2025 6:51 AM EDT [facility], [facility] Glucose Lvl 117(H) 70 - 99 mg/dL 06/03/2025 6:51 AM EDT [facility], [facility] BUN 9 8 - 23 mg/dL 06/03/2025 6:51 AM EDT [facility], [facility] Creatinine 0.80 0.51 - 1.30 mg/dL 06/03/2025 6:51 AM EDT [facility], [facility] Albumin 3.0(L) 3.2 - 4.6 gm/dL 06/03/2025 6:51 AM EDT [facility], [facility] Phosphorus 3.0 2.5 - 4.5 mg/dL 06/03/2025 6:51 AM EDT [facility], [facility] eGFR (CKD-EPIcr 2020) 72 >=60 mL/min/1.7 3 m2 06/03/2025 6:51 AM EDT [facility], [facility] Comment:Estimated GFR was ca lculated using the CKD-EPIcr (2020) equation refit without race. The equation is recommended by the [employer] - [place] [employer] Neph[employer] Task Force. Blood VENOUS BLOOD / Unknown Venipuncture / Unknown 06/03/2025 5:56 AM EDT 06/03/2025 6:18 AM EDT us Stephen Pickard MD CHEMISTRY ORDERABLES Final R esult [facility], [facility] 1 [facility] , [address] [place] [phone] * (ABNORMAL) CBC (06/03/2025 5:56 AM EDT) WBC 3.5(L) 3.7 - 10.3 x10(3)/mcL 06/03/2025 6:32 AM EDT [facility], [facility] RBC 2.23(L) 3.90 - 5.20 x10(6)/mcL 06/03/2025 6:32 AM EDT [facility], [facility] Hgb 7.8(L) 11.2 - 15.7 g/dL 06/03/2025 6:32 AM EDT [facility] Hct 24.5(L) 34.0 - 45.0 % 06/03/2025 6:32 AM EDT [facility], [facility] MCV 109.9(H) 80.0 - 100.0 fL 06/03/2025 6:32 AM EDT [facility], [facility] MCH 35.0(H) 26.0 - 34.0 pg 06/03/2025 6:32 AM EDT [facility], [facility] MCHC 31.8 30.7 - 35.5 g/dL 06/03/2025 6:32 AM EDT [facility] RDW 19.0(H) <=14.9 % 06/03/2025 6:32 AM EDT [facility] Platelet 109(L) 155 - 369 x10(3)/mcL 06/03/2025 6:32 AM EDT [facility] MPV 12.5 8.8 - 12.5 fL 06/03/2025 6:32 AM EDT [facility] Blood VENOUS BLOOD / Unknown Venipuncture / Unknown 06/03/2025 5:56 AM EDT 06/03/2025 6:19 AM EDT us Stephen Pickard MD HEMATOLOGY ORDERABLES Final Result [facility], [address], [place] [address] * ECG AND WAVEFORMS - TELEMETRY (06/02/2025 7:00 PM EDT) ECG INTERPRET Atrial Fib [facility] 06/02/2025 7:00 PM EDT Narrative [facility] - 06/02/2025 7:37 PM EDT ROUTINE W/ PVCS(CW) QRS 0.06 See Clinical Report link for waveform capture us Unknown Provider POINT OF CARE CARDIOLOGY Final Result Performing Organization Address City/[facility]/ZIP Co de Phone Number [facility] [address] [place] [id number] * (ABNORMAL) GLUCOSE METER POC (06/02/2025 8:54 AM EDT) Glucose Meter POC 102(H) 70 - 100 mg/dL 06/02/2025 8:56 AM EDT [facility] Sample Type Capillary 06/02/2025 8:56 AM EDT [facility] Patient Status Non-Critical Patient 06/02/2025 8:56 AM EDT [facility] Blood BLOOD SPECIMEN / Unknown 06/02/2025 8:54 AM EDT 06/02/2025 8:56 AM EDT us Stephen Pickard MD POINT OF CARE TEST ORDERABLE S Final Result [facility] 1 [place] [address] * ECG AND WAVEFORMS - TELEMETRY (06/02/2025 7:03 AM EDT) ECG INTERPRET Atrial Fib [facility] Comment:PVCs 06/02/2025 7:03 AM EDT Narrative [facility] - 06/02/2025 8:44 AM EDT PVC's - ROUTINE - KB QRS 0.08 See Clinical Report link for waveform capture us Unknown Provider POINT OF CARE CARDIOLOGY Final Result [facility] [address] [place] [address] * (ABNORMAL) GLUCOSE METER POC (06/01/2025 9:55 PM EDT) Glucose Meter POC 175(H) 70 - 100 mg/dL 06/01/2025 9:57 PM EDT [facility] Sample Type Capillary 06/01/2025 9:57 PM EDT [facility] Patient Status Non-Critical Patient 06/01/2025 9:57 PM EDT [facility] Blood BLOOD SPECIMEN / Unknown 06/01/2025 9:55 PM EDT 06/01/2025 9:57 PM EDT us Stephen Pickard MD POINT OF CARE TEST ORDERABLE S Final Result Performing Organization Address City/[facility]/ZIP Co de Phone Number [facility] [address] [place] [address] * ECG AND WAVEFORMS - TELEMETRY (06/01/2025 7:00 PM EDT) ECG INTERPRET Atrial Fib [facility] 06/01/2025 7:00 PM EDT Narrative [facility] - 06/01/2025 7:30 PM EDT ROUTINE W/ PVCS(CW) QRS 0.06 See Clinical Report link for waveform capture us Unknown Provider POINT OF CARE CARDIOLOGY Final Result Performing Organization Address [facility] Co de Phone Number [facility] [address] [place] [address] * XR CHEST AP PORTABLE (06/01/2025 4:14 [...] contactthe office of the ordering clinician. us Stephen Pickard MD IMG DIAGNOSTIC IMAGING ORDER CELESTE Final Result * (ABNORMAL) GLUCOSE METER POC (06/01/2025 2:54 PM EDT) Glucose Meter POC 114(H) 70 - 100 mg/dL 06/01/2025 2:55 PM EDT [facility] Sample Type Capillary 06/01/2025 2:55 PM EDT [facility] Patient Status Non-Critical Patient 06/01/2025 2:55 PM EDT [facility] Blood BLOOD SPECIMEN / Unknown 06/01/2025 2:54 PM EDT 06/01/2025 2:55 PM EDT us Stephen Pickard MD POINT OF CARE TEST ORDERABLE S Final Result Performing Organization Address City/[facility]/ZIP Co de Phone Number [facility] 1 [place] [address] * ECG AND WAVEFORMS - TELEMETRY (06/01/2025 1:04 PM EDT) ECG INTERPRET Error [facility] 06/01/2025 1:04 PM EDT Narrative [facility] - 06/01/2025 1:05 PM EDT See Clinical Report link for waveform capture us Unknown Provider POINT OF CARE CARDIOLOGY Final Result Performing Organization Address City/[facility]/ZIP Co de Phone Number [facility] [address] [place] [address] * ECG AND WAVEFORMS - TELEMETRY (06/01/2025 12:35 PM EDT) ECG INTERPRET Atrial Fib [facility] Comment:PVCs 06/01/2025 12:3 5 PM EDT Narrative [facility] - 06/01/2025 12:41 PM EDT FREQ. PVC's RHYTHM CHANGE - KB See Clinical Report link for waveform capture us Unknown Provider POINT OF CARE CARDIOLOGY Final Result Performing Organization Address [facility] Co de Phone Number [facility] [address] [place], [place] [id number] * (ABNORMAL) GLUCOSE METER POC (06/01/2025 9:41 AM EDT) Glucose Meter POC 109(H) 70 - 100 mg/dL 06/01/2025 9:57 AM EDT [facility] Sample Type Capillary 06/01/2025 9:57 AM EDT [facility] Patient Status Non-Critical Patient 06/01/2025 9:57 AM EDT [facility] Blood BLOOD SPECIMEN / Unknown 06/01/2025 9:41 AM EDT 06/01/2025 9:57 AM EDT us Stephen Pickard MD POINT OF CARE TEST ORDERABLE S Final Result Performing Organization Address [facility] Co de Phone Number [facility] [address] [place] [address] * ECG AND WAVEFORMS - TELEMETRY (06/01/2025 7:00 AM EDT) ECG INTERPRET Atrial Fib [facility] Comment:with PVCs 06/01/2025 7:00 AM EDT Narrative [facility] - 06/01/2025 8:17 AM EDT ROUTINE - KB QRS 0.05 See Clinical Report link for waveform capture us Unknown Provider POINT OF CARE CARDIOLOGY Final Result Performing Organization Address [facility] Co de Phone Number [facility] [address] [place], [place] [id number] * (ABNORMAL) GLUCOSE METER POC (05/31/2025 9:21 PM EDT) Glucose Meter POC 172(H) 70 - 100 mg/dL 05/31/2025 9:24 PM EDT [facility] Sample Type Capillary 05/31/2025 9:24 PM EDT [facility] Patient Status Non-Critical Patient 05/31/2025 9:24 PM EDT [facility] Blood BLOOD SPECIMEN / Unknown 05/31/2025 9:21 PM EDT 05/31/2025 9:24 PM EDT us Stephen Pickard MD POINT OF CARE TEST ORDERABLE S Final Result [facility] [address] [place] [address] * ECG AND WAVEFORMS - TELEMETRY (05/31/2025 7:00 PM EDT) ECG INTERPRET Atrial Fib [facility] 05/31/2025 7:00 PM EDT Narrative [facility] - 05/31/2025 7:27 PM EDT ROUTINE W/ PVCS(CW) See Clinical Report link for waveform capture us Unknown Provider POINT OF CARE CARDIOLOGY Final Result Performing Organization Address [facility]/ZIP Co de Phone Number [facility] [address] [place] [address] * (ABNORMAL) GLUCOSE METER POC (05/31/2025 6:37 PM EDT) Glucose Meter POC 167(H) 70 - 100 mg/dL 05/31/2025 6:39 PM EDT [facility] Sample Type Capillary 05/31/2025 6:39 PM EDT [facility] Patient Status Non-Critical Patient 05/31/2025 6:39 PM EDT [facility] Blood BLOOD SPECIMEN / Unknown 05/31/2025 6:37 PM EDT 05/31/2025 6:39 PM EDT us Stephen Pickard MD POINT OF CARE TEST ORDERABLE S Final Result [facility] [address] [place] [address] * GLUCOSE METER POC (05/31/2025 4:29 PM EDT) Glucose Meter POC 95 70 - 100 mg/dL 05/31/2025 4:30 PM EDT [facility] Sample Type Capillary 05/31/2025 4:30 PM EDT [facility] Patient Status Non-Critical Patient 05/31/2025 4:30 PM EDT [facility] Blood BLOOD SPECIMEN / Unknown 05/31/2025 4:29 PM EDT 05/31/2025 4:30 PM EDT us Stephen Pickard MD POINT OF CARE TEST ORDERABLE S Final Result Performing Organization Address City/[facility]/ZIP Co de Phone Number [facility] [address] [place] [address] * ECG AND WAVEFORMS - TELEMETRY (05/31/2025 4:24 PM EDT) ECG INTERPRET Atrial Fib [facility] 05/31/2025 4:24 PM EDT Narrative [facility] - 05/31/2025 4:25 PM EDT [email or web address]//AC See Clinical Report link for waveform capture us Unknown Provider POINT OF CARE CARDIOLOGY Final Result Performing Organization Address [facility]/ZIP Co de Phone Number [facility] [address] [place] [phone] * ECG AND WAVEFORMS - TELEMETRY (05/31/2025 4:23 PM EDT) ECG INTERPRET Atrial Fib [facility] 05/31/2025 4:23 PM EDT Narrative [facility] - 05/31/2025 4:24 PM EDT See Clinical Report link for waveform capture us Unknown Provider POINT OF CARE CARDIOLOGY Final Result Performing Organization Address City/[facility]/ZIP Co de Phone Number [facility] [address] [place] [address] * (ABNORMAL) GLUCOSE METER POC (05/31/2025 11:45 AM EDT) [facility] Glucose Meter POC 123(H) 70 - 100 mg/dL 05/31/2025 11:47 AM EDT [facility] Sample Type Capillary 05/31/2025 11:47 AM EDT [facility] Patient Status Non-Critical Patient 05/31/2025 11:47 AM EDT [facility] Blood BLOOD SPECIMEN / Unknown 05/31/2025 11:45 AM EDT 05/31/2025 11:47 AM EDT us Stephen Pickard MD POINT OF CARE TEST ORDERABLE S Final Result Performing Organization Address City/[facility]/ZIP Co de Phone Number [facility] [address] [place] [address] * ECG AND WAVEFORMS - TELEMETRY (05/31/2025 10:35 AM EDT) [facility] ECG INTERPRET Atrial Fib [facility] 05/31/2025 10:3 5 AM EDT Narrative [facility] - 05/31/2025 10:36 AM EDT See Clinical Report link for waveform capture us Unknown Provider POINT OF CARE CARDIOLOGY Final Result Performing Organization Address City/[facility]/ZIP Co de Phone Number [facility] [address] [place] [phone] * ECG AND WAVEFORMS - TELEMETRY (05/31/2025 7:58 AM EDT) ECG INTERPRET Atrial Fib [facility] 05/31/2025 7:58 AM EDT Narrative [facility] - 05/31/2025 8:02 AM EDT [email or web address]//AC See Clinical Report link for waveform capture us Unknown Provider POINT OF CARE CARDIOLOGY Final Result Performing Organization Address City/[facility]/ZIP Co de Phone Number [facility] [address] [place] [address] * (ABNORMAL) RENAL FUNCTION PANEL (05/31/2025 7:29 AM EDT) Sodium 137 136 - 145 mmol/L 05/31/2025 8:37 AM EDT [facility] Potassium 3.7 3.5 - 5.0 mmol/L 05/31/2025 8:37 AM EDT [facility] Chloride 108(H) 98 - 107 mmol/L 05/31/2025 8:37 AM EDT [facility] Total CO2 20(L) 22 - 29 mmol/L 05/31/2025 8:37 AM EDT [facility] Anion Gap 9 7 - 16 mmol/L 05/31/2025 8:37 AM EDT [facility] Calcium 8.1(L) 8.8 - 10.4 mg/dL 05/31/2025 8:37 AM EDT [facility] Glucose Lvl 110(H) 70 - 99 mg/dL 05/31/2025 8:37 AM EDT [facility] BUN 10 8 - 23 mg/dL 05/31/2025 8:37 AM EDT [facility] Creatinine 0.81 0.51 - 1.30 mg/dL 05/31/2025 8:37 AM EDT [facility] Albumin 2.9(L) 3.2 - 4.6 gm/dL 05/31/2025 8:37 AM EDT [facility] Phosphorus 2.5 2.5 - 4.5 mg/dL 05/31/2025 8:37 AM EDT [facility] eGFR (CKD-EPIcr 2020) 71 >=60 mL/min/1.7 3 m2 05/31/2025 8:37 AM EDT [facility] Comment:Estimated GFR was ca lculated using the CKD-EPIcr (2020) equation refit without race. The equation is recommended by the National Kid[employer] - [place] [employer] of Nephrology Task Force. Blood VENOUS BLOOD / Unknown Venipuncture / Unknown 05/31/2025 7:29 AM EDT 05/31/2025 7:53 AM EDT us Stephen Pickard MD CHEMISTRY ORDERABLES Final R esult [facility] [address] [facility] , [place] [address] * (ABNORMAL) CBC (05/31/2025 7:29 AM EDT) [facility] Signature WBC 3.7 3.7 - 10.3 x10(3)/mcL 05/31/2025 [...] HEMATOLOGY ORDERABLES Final Result [facility] [address] [facility] , [place] [address] * (ABNORMAL) GLUCOSE METER POC (05/30/2025 9:16 PM EDT) Glucose Meter POC 173(H) 70 - 100 mg/dL 05/30/2025 9:17 PM EDT [facility] Sample Type Capillary 05/30/2025 9:17 PM EDT [facility] Patient Status Non-Critical Patient 05/30/2025 9:17 PM EDT [facility] Blood BLOOD SPECIMEN / Unknown 05/30/2025 9:16 PM EDT 05/30/2025 9:17 PM EDT us Stephen Pickard MD POINT OF CARE TEST ORDERABLE S Final Result [facility] [address] [place] [address] * ECG AND WAVEFORMS - TELEMETRY (05/30/2025 7:03 PM EDT) ECG INTERPRET Atrial Fib [facility] 05/30/2025 7:03 PM EDT Narrative [facility] - 05/30/2025 8:08 PM EDT ROUTINE (HM) QRS 0.09 See Clinical Report link for waveform capture us Unknown Provider POINT OF CARE CARDIOLOGY Final Result [facility] [address] [place] [address] * (ABNORMAL) GLUCOSE METER POC (05/30/2025 5:42 PM EDT) Glucose Meter POC 166(H) 70 - 100 mg/dL 05/30/2025 5:43 PM EDT [facility] Sample Type Capillary 05/30/2025 5:43 PM EDT [facility] Patient Status Non-Critical Patient 05/30/2025 5:43 PM EDT [facility] Blood BLOOD SPECIMEN / Unknown 05/30/2025 5:42 PM EDT 05/30/2025 5:43 PM EDT us Stephen Pickard MD POINT OF CARE TEST ORDERABLE S Final Result Performing Organization Address [facility]/[place] [address] * (ABNORMAL) GLUCOSE METER POC (05/30/2025 11:32 AM EDT) Glucose Meter POC 179(H) 70 - 100 mg/dL 05/30/2025 11:33 AM EDT [facility] Sample Type Capillary 05/30/2025 11:33 AM EDT [facility] Patient Status Non-Critical Patient 05/30/2025 11:33 AM EDT [facility] Blood BLOOD SPECIMEN / Unknown 05/30/2025 11:32 AM EDT 05/30/2025 11:33 AM EDT us Stephen Pickard MD POINT OF CARE TEST ORDERABLE S Final Result Performing Organization Address [facility] [place] [address] * (ABNORMAL) GLUCOSE METER POC (05/30/2025 8:25 AM EDT) Glucose Meter POC 104(H) 70 - 100 mg/dL 05/30/2025 8:26 AM EDT [facility] Sample Type Capillary 05/30/2025 8:26 AM EDT [facility] Patient Status Non-Critical Patient 05/30/2025 8:26 AM EDT [facility] Blood BLOOD SPECIMEN / Unknown 05/30/2025 8:25 AM EDT 05/30/2025 8:26 AM EDT us Stephen Pickard MD POINT OF CARE TEST ORDERABLE S Final Result Performing Organization Address City/[facility] Co de Phone Number [address] [address] * ECG AND WAVEFORMS - TELEMETRY (05/30/2025 7:00 AM EDT) Pathologist [facility] ECG INTERPRET Atrial Fib [facility] 05/30/2025 7:00 AM EDT Narrative [facility] - 05/30/2025 9:15 AM EDT RS, ROUTINE QRS 0.06 See Clinical Report link for waveform capture us Unknown Provider POINT OF CARE CARDIOLOGY Final Result [facility] [address] [place] [id number] * (ABNORMAL) RENAL FUNCTION PANEL (05/30/2025 7:00 AM EDT) [facility] Sodium 135(L) 136 - 145 mmol/L 05/30/2025 [...] 8:53 AM EDT [facility] Albumin 2.9(L) 3.2 - 4.6 gm/dL 05/30/2025 8:53 AM EDT [facility] Phosphorus 2.2(L) 2.5 - 4.5 mg/dL 05/30/2025 8:53 AM EDT [facility] eGFR (CKD-EPIcr 2020) 72 >=60 mL/min/1.7 3 m2 05/30/2025 8:53 AM EDT [facility] Comment:Estimated GFR was ca lculated using the CKD-EPIcr (2020) equation refit without race. The equation is recommended by the National Kidney Foundation - [place] [employer] of Nephrology Task Force. Blood VENOUS BLOOD / Unknown Venipuncture / Unknown 05/30/2025 7:00 AM EDT 05/30/2025 8:17 AM EDT us Stephen Pickard MD CHEMISTRY ORDERABLES Final R esult [facility] [address] [facility] , [place] [address] * (ABNORMAL) CBC (05/30/2025 7:00 AM EDT) WBC 3.4(L) 3.7 - 10.3 x10(3)/mcL 05/30/2025 8:26 AM EDT [facility] RBC 2.09(L) 3.90 - 5.20 x10(6)/mcL 05/30/2025 8:26 AM EDT [facility] Hgb 7.1(L) 11.2 - 15.7 g/dL 05/30/2025 8:26 AM EDT [facility] Hct 22.6(L) 34.0 - 45.0 % 05/30/2025 8:26 AM EDT [facility] MCV 108.1(H) 80.0 - 100.0 fL 05/30/2025 8:26 AM EDT [facility] MCH 34.0 26.0 - 34.0 pg 05/30/2025 8:26 AM EDT [facility] MCHC 31.4 30.7 - 35.5 g/dL 05/30/2025 8:26 AM EDT [facility] RDW 19.3(H) <=14.9 % 05/30/2025 8:26 AM EDT [facility] Platelet 77(L) 155 - 369 x10(3)/mcL 05/30/2025 8:26 AM EDT [facility] MPV 12.5 8.8 - 12.5 fL 05/30/2025 8:26 AM EDT [facility], [facility] Blood VENOUS BLOOD / Unknown Venipuncture / Unknown 05/30/2025 7:00 AM EDT 05/30/2025 8:17 AM EDT us Stephen Pickard MD HEMATOLOGY ORDERABLES Final Result Performing Organization Address City/[facility]/ZIP Co de Phone Number [facility] [employer] [facility] [address] [facility], [place] [address] * (ABNORMAL) GLUCOSE METER POC (05/29/2025 9:42 PM EDT) Glucose Meter POC 133(H) 70 - 100 mg/dL 05/29/2025 9:44 PM EDT [facility] Sample Type Capillary 05/29/2025 9:44 PM EDT [facility] Patient Status Non-Critical Patient 05/29/2025 9:44 PM EDT [facility] Blood BLOOD SPECIMEN / Unknown 05/29/2025 9:42 PM EDT 05/29/2025 9:44 PM EDT us Stephen Pickard MD POINT OF CARE TEST ORDERABLE S Final Result Performing Organization Address [facility] Co de Phone Number [facility] [address] [place] [id number] * ECG AND WAVEFORMS - TELEMETRY (05/29/2025 7:03 PM EDT) [facility] Signature ECG INTERPRET Atrial Fib [facility] 05/29/2025 7:03 PM EDT Narrative [facility] - 05/29/2025 7:59 PM EDT ROUTINE (HM) QRS 0.09 See Clinical Report link for waveform capture us Unknown Provider POINT OF CARE CARDIOLOGY Final Result Performing Organization Address City/[facility]/ZIP Co de Phone Number [facility] [address] [place] [address] * (ABNORMAL) GLUCOSE METER POC (05/29/2025 5:39 PM EDT) Glucose Meter POC 152(H) 70 - 100 mg/dL 05/29/2025 5:41 PM EDT [facility] Sample Type Capillary 05/29/2025 5:41 PM EDT [facility] Patient Status Non-Critical Patient 05/29/2025 5:41 PM EDT [facility] Blood BLOOD SPECIMEN / Unknown 05/29/2025 5:39 PM EDT 05/29/2025 5:41 PM EDT us Stephen Pickard MD POINT OF CARE TEST ORDERABLE S Final Result Performing Organization Address [facility] Co de Phone Number [address] [address] * GLUCOSE METER POC (05/29/2025 11:32 AM EDT) Glucose Meter POC 86 70 - 100 mg/dL 05/29/2025 11:33 AM EDT [facility] Sample Type Capillary 05/29/2025 11:33 AM EDT [facility] Patient Status Non-Critical Patient 05/29/2025 11:33 AM EDT [facility] Blood BLOOD SPECIMEN / Unknown 05/29/2025 11:32 AM EDT 05/29/2025 11:33 AM EDT us Stephen Pickard MD POINT OF CARE TEST ORDERABLE S Final Result [address] [address] * (ABNORMAL) GLUCOSE METER POC (05/29/2025 7:20 AM EDT) Glucose Meter POC 106(H) 70 - 100 mg/dL 05/29/2025 7:22 AM EDT [facility] Sample Type Capillary 05/29/2025 7:22 AM EDT [facility] Patient Status Non-Critical Patient 05/29/2025 7:22 AM EDT [facility] Blood BLOOD SPECIMEN / Unknown 05/29/2025 7:20 AM EDT 05/29/2025 7:22 AM EDT us Stephen Pickard MD POINT OF CARE TEST ORDERABLE S Final Result Performing Organization Address [facility]/ZIP Co de Phone Number [facility] [address] [place] [address] * ECG AND WAVEFORMS - TELEMETRY (05/29/2025 7:00 AM EDT) Pathologist [facility] ECG INTERPRET Atrial Fib [facility] 05/29/2025 7:00 AM EDT Narrative [facility] - 05/29/2025 7:50 AM EDT ECB - ROUTINE QRS 0.11 See Clinical Report link for waveform capture us Unknown Provider POINT OF CARE CARDIOLOGY Final Result Performing Organization Address [facility] Co de Phone Number [facility] [address] [place] [address] * VANCOMYCIN LEVEL AUC1 (05/29/2025 5:55 AM EDT) [facility] Vancomycin AUC1 12.6 mcg/mL 6:54 AM EDT [employer] Blood VENOUS STRUCTURE / Unknown Line / Unknown 05/29/2025 5:55 AM EDT 05/29/2025 6:09 AM EDT us Stephen Pickard MD CHEMISTRY ORDERABLES Final R esult Performing Organization Address City/[facility] Co de Phone Number [employer] [address] [place] [address], [place] [address] * (ABNORMAL) CBC (05/29/2025 5:55 AM EDT) Pathologist [facility] WBC 3.6(L) 3.7 - 10.3 x10(3)/mcL 05/29/2025 [...] ORDERABLES Final R esult [facility] [address] [facility] , [place] [address] * (ABNORMAL) BASIC METABOLIC PANEL (05/29/2025 5:55 AM EDT) Sodium 137 136 - 145 mmol/L 05/29/2025 6:40 AM EDT [facility] Potassium 4.2 3.5 - 5.0 mmol/L 05/29/2025 6:40 AM EDT [facility] Chloride 107 98 - 107 mmol/L 05/29/2025 6:40 AM EDT [facility] Total CO2 21(L) 22 - 29 mmol/L 05/29/2025 6:40 AM EDT [facility] Anion Gap 9 7 - 16 mmol/L 05/29/2025 6:40 AM EDT [facility] Calcium 8.1(L) 8.8 - 10.4 mg/dL 05/29/2025 6:40 AM EDT [facility] Glucose Lvl 115(H) 70 - 99 mg/dL 05/29/2025 6:40 AM EDT [facility] BUN 14 8 - 23 mg/dL 05/29/2025 6:40 AM EDT [facility] Creatinine 0.81 0.51 - 1.30 mg/dL 05/29/2025 6:40 AM EDT [facility] eGFR (CKD-EPIcr 2020) 71 >=60 mL/min/1.7 3 m2 05/29/2025 6:40 AM EDT [facility] Comment:Estimated GFR was ca lculated using the CKD-EPIcr (2020) equation refit without race. The equation is recommended by the National Kidney Foundation - [place] [employer] of Nephrology Task Force. Blood VENOUS STRUCTURE / Unknown Line / Unknown 05/29/2025 5:55 AM EDT 05/29/2025 6:09 AM EDT us Luis Manuel Mays MD CHEMISTRY ORDERABLES Final Re sult [facility] [address] [facility] , [place] [address] * MAGNESIUM LEVEL (05/29/2025 5:55 AM EDT) Magnesium 2.0 1.6 - 2.4 mg/dL 05/29/2025 6:40 AM EDT [facility] Blood VENOUS STRUCTURE / Unknown Line / Unknown 05/29/2025 5:55 AM EDT 05/29/2025 6:09 AM EDT us Luis Manuel Mays MD CHEMISTRY ORDERABLES Final Re sult Performing Organization Address [facility] Co de Phone Number [facility] [employer] [facility] [address] [facility] , [place] [address] * (ABNORMAL) PHOSPHORUS LEVEL (05/29/2025 5:55 AM EDT) Phosphorus 2.4(L) 2.5 - 4.5 mg/dL 05/29/2025 6:40 AM EDT [facility] [employer] [facility] Blood VENOUS STRUCTURE / Unknown Line / Unknown 05/29/2025 5:55 AM EDT 05/29/2025 6:09 AM EDT Luis Manuel Mays MD CHEMISTRY ORDERABLES Final Re sult Performing Organization Address [facility] de Phone Number [facility] [employer] [facility] [address] [facility] , [place] [address] * (ABNORMAL) TROPONIN-T HIGH SENSITIVITY 2HR (05/29/2025 2:31 AM EDT) [id number] 2HR 47(H) <14 ng/L 05/29/2025 2:57 AM EDT [facility] hs-cTnT 2Hr Delta from Baseline -3 <4 ng/L 05/29/2025 2:57 AM EDT [facility] Blood VENOUS BLOOD / Unknown Venipuncture / Unknown 05/29/2025 2:31 AM EDT 05/29/2025 2:33 AM EDT Narrative [facility] - 05/29/2025 2:57 AM EDT Ingestion of angie doses of biotin (>5 mg/day) taken within 8 hours of drawing blood sample can interfere with this immunoassay test. Michael Beltre MD CHEMISTRY ORDERABLES Mita l Result Performing Organization Address [facility] Co de Phone Number [facility] [employer] [facility] [address] [facility] , [place] [address] * CT ANGIOGRAM PULMONARY W [...] Isovue 370 IV contrast as recorded in [employer]. 2-D multiplanar reconstructions and 3-D MIP reconstructions [...] using Isovue 370 IVcontrast as recorded in [employer]. 2-D multiplanar reconstructions and 3-D MIP reconstructions [...] contactthe office of the ordering clinician. us Michael Beltre MD IMG CT ORDERABLES Final [...] W/ REFLEX (05/29/2025 12:48 AM EDT) Pathologist [facility] [id number] 50(H) <14 ng/L 05/29/2025 1:13 AM EDT [facility] Blood VENOUS BLOOD / Unknown Venipuncture / Unknown 05/29/2025 12:48 AM EDT 05/29/2025 12:48 AM EDT Narrative [facility] - 05/29/2025 1:13 AM EDT Ingestion of angie doses of biotin (>5 mg/day) taken within 8 hours of drawing blood sample can interfere with this immunoassay test. Michael Beltre MD CHEMISTRY ORDERABLES Mita l Result [employer] [address] [facility] , [place] [address] * (ABNORMAL) HEMOGLOBIN AND HEMATOCRIT (05/29/2025 12:48 AM EDT) Pathologist [facility] Hgb 8.2(L) 11.2 - 15.7 g/dL 05/29/2025 12:53 AM EDT [facility] Hct 25.5(L) 34.0 - 45.0 % 05/29/2025 12:53 AM EDT [employer] Blood VENOUS BLOOD / Unknown Venipuncture / Unknown 05/29/2025 12:48 AM EDT 05/29/2025 12:48 AM EDT Michael Beltre MD HEMATOLOGY ORDERABLES Fin al Result [employer] [address] [place] [address] , [place] [address] * EK EKG 12 LEAD (05/29/2025 12:28 AM EDT) Anatomical Region Laterality Modality Electrocardiogra phy 05/28/2025 11:3 6 PM EDT Impressions 05/29/2025 7:[address] [facility] Test Date: 2025-05-28 Pat Name: SKYLER ALCAZARLIVAN Department: DEPID Room: [facility] Gender: Female Museum Assistant: : 1940 Requested By: STEPHEN Earl Order Number: [id number] Reading MD: Shayy Vega DO Measurements Intervals Adams Rate: 108 P: 0 IL: 0 QRS: 12 QRSD: 86 T: 135 QT: 309 QTc: 416 Interpretive Statements ATRIAL FIBRILLATION WITH RAPID VENTRICULAR RESPONSE ABERRANT COMPLEXES VERSUS PVC'S ANTEROSEPTAL MYOCARDIAL INFARCTION, PROBABLY OLD Electronically Signed On 05-29-2025 07:24:13 EDT by Shayy Vega DO Narrative Procedure Note Shayy Vega DO - 05/29/[address] [facility] Test Date: 2025-05-28 Pat Name: SKYLER ALCAZARLIVAN Department: DEPID Room: [facility] Gender: Female Museum Assistant: : 1940 Requested By: STEPHEN Earl Order Number: [id number] Reading MD: Shayy Vega DO Measurements Intervals Adams Rate: 108 P: 0 IL: 0 QRS: 12 QRSD: 86 T: 135 QT: 309 QTc: 416 Interpretive Statements ATRIAL FIBRILLATION WITH RAPID VENTRICULAR RESPONSE ABERRANT COMPLEXES VERSUS PVC'S ANTEROSEPTAL MYOCARDIAL INFARCTION, PROBABLY OLD Electronically Signed On 05-29-2025 07:24:13 EDT by Shayy Vega DO us Stephen Pickard MD IMG ECG ORDERABLES Final Res ult * (ABNORMAL) GLUCOSE METER POC (05/29/2025 12:27 AM EDT) Glucose Meter POC 117(H) 70 - 100 mg/dL 05/29/2025 12:28 AM EDT [facility] Sample Type Capillary 05/29/2025 12:28 AM EDT [facility] Patient Status Non-Critical Patient 05/29/2025 12:28 AM EDT [facility] Blood BLOOD SPECIMEN / Unknown 05/29/2025 12:27 AM EDT 05/29/2025 12:28 AM EDT Stephen Pickard MD POINT OF CARE TEST ORDERABLE S Final Result Performing Organization Address City/[facility]/ZIP Co de Phone Number [facility] [address] [place] [address] * ECG AND WAVEFORMS - TELEMETRY (05/28/2025 8:59 PM EDT) ECG INTERPRET Atrial Fib [facility] 05/28/2025 8:59 PM EDT Narrative [facility] - 05/28/2025 9:01 PM EDT NEW ADMIT/MS QRS 0.11 See Clinical Report link for waveform capture us Unknown Provider POINT OF CARE CARDIOLOGY Final Result Performing Organization Address [facility] Co de Phone Number [facility] [address] [place] [address] * (ABNORMAL) GLUCOSE METER POC (05/28/2025 5:37 PM EDT) Glucose Meter POC 121(H) 70 - 100 mg/dL 05/28/2025 5:39 PM EDT [facility] Sample Type Capillary 05/28/2025 5:39 PM EDT [facility] Patient Status Non-Critical Patient 05/28/2025 5:39 PM EDT [facility] Blood BLOOD SPECIMEN / Unknown 05/28/2025 5:37 PM EDT 05/28/2025 5:39 PM EDT us Stephen Pickard MD POINT OF CARE TEST ORDERABLE S Final Result [facility] [address] [place] [id number] * (ABNORMAL) HEMOGLOBIN (05/28/2025 2:51 PM EDT) [facility] Hgb 7.5(L) 11.2 - 15.7 g/dL 05/28/2025 4:08 PM EDT [facility] Blood VENOUS BLOOD / Unknown Venipuncture / Unknown 05/28/2025 2:51 PM EDT 05/28/2025 4:00 PM EDT us Stephen Pickard MD HEMATOLOGY ORDERABLES Final Result Performing Organization Address City/[facility]/ZIP Co de Phone Number [facility] [employer] [facility] [address] [facility], [place] [address] * (ABNORMAL) GLUCOSE METER POC (05/28/2025 11:11 AM EDT) [facility] Glucose Meter POC 123(H) 70 - 100 mg/dL 05/28/2025 11:12 AM EDT [facility] Sample Type Capillary 05/28/2025 11:12 AM EDT [facility] Patient Status Non-Critical Patient 05/28/2025 11:12 AM EDT [facility] Blood BLOOD SPECIMEN / Unknown 05/28/2025 11:11 AM EDT 05/28/2025 11:12 AM EDT us Stephen Pickard MD POINT OF CARE TEST ORDERABLE S Final Result [facility] [address] [place] [address] * (ABNORMAL) CBC (05/28/2025 5:35 AM EDT) [facility] WBC 5.8 3.7 - 10.3 x10(3)/mcL 05/28/2025 5:56 AM EDT [facility] [employer] [facility] RBC 2.22(L) 3.90 - 5.20 x10(6)/mcL 05/28/2025 [...] ORDERABLES Final R esult [facility] [address] [facility] , [place] [address] * (ABNORMAL) BASIC METABOLIC PANEL (05/28/2025 5:35 AM EDT) Sodium 138 136 - 145 mmol/L 05/28/2025 6:18 AM EDT [facility] Potassium 3.8 3.5 - 5.0 mmol/L 05/28/2025 6:18 AM EDT [facility] Chloride 109(H) 98 - 107 mmol/L 05/28/2025 6:18 AM EDT [facility] Total CO2 20(L) 22 - 29 mmol/L 05/28/2025 6:18 AM EDT [facility] Anion Gap 9 7 - 16 mmol/L 05/28/2025 6:18 AM EDT [facility] Calcium 8.0(L) 8.8 - 10.4 mg/dL 05/28/2025 6:18 AM EDT [facility] Glucose Lvl 141(H) 70 - 99 mg/dL 05/28/2025 6:18 AM EDT [facility] BUN 19 8 - 23 mg/dL 05/28/2025 6:18 AM EDT [facility] Creatinine 1.00 0.51 - 1.30 mg/dL 05/28/2025 6:18 AM EDT [facility] eGFR (CKD-EPIcr 2020) 55(L) >=60 mL/min/1.7 3 m2 05/28/2025 6:18 AM EDT [facility] Comment:Estimated GFR was ca lculated using the CKD-EPIcr (2020) equation refit without race. The equation is recommended by the [employer] - [place] [employer]ph[employer] Task Force. Blood VENOUS BLOOD / Unknown Venipuncture / Unknown 05/28/2025 5:35 AM EDT 05/28/2025 5:42 AM EDT us Luis Manuel Mays MD CHEMISTRY ORDERABLES Final Re sult [facility] [address] , [place] [address] * MAGNESIUM LEVEL (05/28/2025 5:35 AM EDT) Magnesium 2.2 1.6 - 2.4 mg/dL 05/28/2025 6:18 AM EDT [facility] Blood VENOUS BLOOD / Unknown Venipuncture / Unknown 05/28/2025 5:35 AM EDT 05/28/2025 5:42 AM EDT us Luis Manuel Mays MD CHEMISTRY ORDERABLES Final Re sult Performing Organization Address City/[facility]/ZIP Co de Phone Number [facility] [address] , [address] [place] [phone] * PHOSPHORUS LEVEL (05/28/2025 5:35 AM EDT) Phosphorus 2.5 2.5 - 4.5 mg/dL 05/28/2025 6:18 AM EDT [facility] Blood VENOUS BLOOD / Unknown Venipuncture / Unknown 05/28/2025 5:35 AM EDT 05/28/2025 5:42 AM EDT Luis Manuel Mays MD CHEMISTRY ORDERABLES Final Re sult Performing Organization Address [facility] [facility] Hospital/[facility] Co de Phone Number [facility] [address] [facility] , [place] [address] * (ABNORMAL) GLUCOSE METER POC (05/28/2025 5:21 AM EDT) Glucose Meter POC 130(H) 70 - 100 mg/dL 05/28/2025 5:24 AM EDT [facility] Sample Type Capillary 05/28/2025 5:24 AM EDT [facility] Patient Status Non-Critical Patient 05/28/2025 5:24 AM EDT [facility] Blood BLOOD SPECIMEN / Unknown 05/28/2025 5:21 AM EDT 05/28/2025 5:24 AM EDT Stephen Pickard MD POINT OF CARE TEST ORDERABLE S Final Result Performing Organization Address City/[facility]/ZIP Co de Phone Number [facility] [address] [place] [address] * (ABNORMAL) GLUCOSE METER POC (05/27/2025 11:12 PM EDT) Glucose Meter POC 129(H) 70 - 100 mg/dL 05/27/2025 11:15 PM EDT [facility] Sample Type Capillary 05/27/2025 11:15 PM EDT [facility] Patient Status Non-Critical Patient 05/27/2025 11:15 PM EDT [facility] Blood BLOOD SPECIMEN / Unknown 05/27/2025 11:12 PM EDT 05/27/2025 11:15 PM EDT us Stephen Pickard MD POINT OF CARE TEST ORDERABLE S Final Result Performing Organization Address City/[facility]/ZIP Co de Phone Number [facility] [address] [place], [place] [id number] * (ABNORMAL) HEMOGLOBIN AND HEMATOCRIT (05/27/2025 6:24 PM EDT) Hgb 7.7(L) 11.2 - 15.7 g/dL 05/27/2025 6:42 PM EDT [facility] Hct 23.6(L) 34.0 - 45.0 % 05/27/2025 6:42 PM EDT [facility] Blood VENOUS BLOOD / Unknown Venipuncture / Unknown 05/27/2025 6:24 PM EDT 05/27/2025 6:35 PM EDT Reuben Franz APRN HEMATOLOGY ORDERABLES Final Result Performing Organization Address City/[facility]/ZIP Co de Phone Number [employer] [address] [place] [address], [place] [address] * (ABNORMAL) GLUCOSE METER POC (05/27/2025 6:02 PM EDT) Glucose Meter POC 155(H) 70 - 100 mg/dL 05/27/2025 6:05 PM EDT [facility] Sample Type Capillary 05/27/2025 6:05 PM EDT [facility] Patient Status Non-Critical Patient 05/27/2025 6:05 PM EDT [facility] Blood BLOOD SPECIMEN / Unknown 05/27/2025 6:02 PM EDT 05/27/2025 6:05 PM EDT us Stephen Pickard MD POINT OF CARE TEST ORDERABLE S Final Result Performing Organization Address City/[facility]/ZIP Co de Phone Number [facility] [address] [place] [address] * VANCOMYCIN LEVEL (05/27/2025 12:01 PM EDT) Vanco Random 8.4 mcg/mL 05/27/2025 12:24 PM EDT [facility] Blood VENOUS BLOOD / Unknown Venipuncture / Unknown 05/27/2025 12:01 PM EDT 05/27/2025 12:12 PM EDT Luis Manuel Mays MD CHEMISTRY ORDERABLES Final Re sult Performing Organization Address [facility] Co de Phone Number [facility] [address] [place] [address] * (ABNORMAL) GLUCOSE METER POC (05/27/2025 11:25 AM EDT) [facility] Glucose Meter POC 181(H) 70 - 100 mg/dL 05/27/2025 11:27 AM EDT [facility] Sample Type Capillary 05/27/2025 11:27 AM EDT [facility] Patient Status Non-Critical Patient 05/27/2025 11:27 AM EDT [facility] Blood BLOOD SPECIMEN / Unknown 05/27/2025 11:25 AM EDT 05/27/2025 11:27 AM EDT Stephen Pickard MD POINT OF CARE TEST ORDERABLE S Final Result Performing Organization Address [facility]/ZIP Co de Phone Number [facility] [address] [place] [address] * (ABNORMAL) HEMOGLOBIN AND HEMATOCRIT (05/27/2025 9:56 AM EDT) Hgb 8.4(L) 11.2 - 15.7 g/dL 05/27/2025 10:09 AM EDT [facility] Hct 26.3(L) 34.0 - 45.0 % 05/27/2025 10:09 AM EDT [facility] Blood VENOUS BLOOD / Unknown Venipuncture / Unknown 05/27/2025 9:56 AM EDT 05/27/2025 10:06 AM EDT us Reuben Franz RADIOLOGY RN HEMATOLOGY ORDERABLES Final Result [facility] [address] [place] [id number] * EC ECHOCARDIOGRAM COMPLETE W DOPPLER AND COLOR FLOW MAPPING (05/27/2025 9:27 AM EDT) LV DIASTOLIC PLAX 4.6 cm PYRAMIS Ejection [...] GLUCOSE METER POC (05/27/2025 5:09 AM EDT) [facility] Glucose Meter POC 139(H) 70 - 100 mg/dL 05/27/2025 5:10 AM EDT [facility] Sample Type Capillary 05/27/2025 5:10 AM EDT [facility] Patient Status Non-Critical Patient 05/27/2025 5:10 AM EDT [facility] Blood BLOOD SPECIMEN / Unknown 05/27/2025 5:09 AM EDT 05/27/2025 5:10 AM EDT Stephen Pickard MD POINT OF CARE TEST ORDERABLE S Final Result [facility] [address] [place] [address] * (ABNORMAL) CBC (05/27/2025 3:25 AM EDT) [facility] WBC 5.1 3.7 - 10.3 x10(3)/mcL 05/27/2025 [...] 05/27/2025 3:37 AM EDT [facility] MCHC 32.7 30.7 - 35.5 g/dL 05/27/2025 3:37 AM EDT [facility] RDW 20.0(H) <=14.9 % 05/27/2025 3:37 AM EDT [facility] Platelet 73(L) 155 - 369 x10(3)/mcL 05/27/2025 3:37 AM EDT [facility] MPV 12.2 8.8 - 12.5 fL 05/27/2025 3:37 AM EDT [facility] Blood VENOUS STRUCTURE / Unknown Venipuncture / Unknown 05/27/2025 3:25 AM EDT 05/27/2025 3:29 AM EDT us Luis Manuel Mays MD HEMATOLOGY ORDERABLES Final R esult [facility] [address] [facility] , [place] [address] * (ABNORMAL) BASIC METABOLIC PANEL (05/27/2025 3:25 AM EDT) Sodium 139 136 - 145 mmol/L 05/27/2025 3:58 AM EDT [facility] Potassium 4.1 3.5 - 5.0 mmol/L 05/27/2025 3:58 AM EDT [facility] Chloride 109(H) 98 - 107 mmol/L 05/27/2025 3:58 AM EDT [facility] Total CO2 20(L) 22 - 29 mmol/L 05/27/2025 3:58 AM EDT [facility] Anion Gap 10 7 - 16 mmol/L 05/27/2025 3:58 AM EDT [facility] Calcium 8.1(L) 8.8 - 10.4 mg/dL 05/27/2025 3:58 AM EDT [facility] Glucose Lvl 157(H) 70 - 99 mg/dL 05/27/2025 3:58 AM EDT [facility] BUN 21 8 - 23 mg/dL 05/27/2025 3:58 AM EDT [facility] Creatinine 0.92 0.51 - 1.30 mg/dL 05/27/2025 3:58 AM EDT [facility] eGFR (CKD-EPIcr 2020) 61 >=60 mL/min/1.7 3 m2 05/27/2025 3:58 AM EDT [facility] Comment:Estimated GFR was ca lculated using the CKD-EPIcr (2020) equation refit without race. The equation is recommended by the National Kidney [employer] - [place] [employer] of Nephrology Task Force. Blood VENOUS STRUCTURE / Unknown Venipuncture / Unknown 05/27/2025 3:25 AM EDT 05/27/2025 3:29 AM EDT us Luis Manuel Mays MD CHEMISTRY ORDERABLES Final Re sult Performing Organization Address [facility] Co de Phone Number [facility] [address] [facility] , [place] [address] * MAGNESIUM LEVEL (05/27/2025 3:25 AM EDT) Magnesium 2.2 1.6 - 2.4 mg/dL 05/27/2025 3:58 AM EDT [facility] Blood VENOUS STRUCTURE / Unknown Venipuncture / Unknown 05/27/2025 3:25 AM EDT 05/27/2025 3:29 AM EDT us Luis Manuel Mays MD CHEMISTRY ORDERABLES Final Re sult Performing Organization Address City/[facility]/ZIP Co de Phone Number [address] , [place] [address] * PHOSPHORUS LEVEL (05/27/2025 3:25 AM EDT) Phosphorus 4.1 2.5 - 4.5 mg/dL 05/27/2025 3:58 AM EDT [facility] Blood VENOUS STRUCTURE / Unknown Venipuncture / Unknown 05/27/2025 3:25 AM EDT 05/27/2025 3:29 AM EDT Luis Manuel Mays MD CHEMISTRY ORDERABLES Final Re sult [employer] [address] [facility] , [place] [address] * (ABNORMAL) HEMOGLOBIN AND HEMATOCRIT (05/27/2025 1:15 AM EDT) Hgb 8.1(L) 11.2 - 15.7 g/dL 05/27/2025 1:32 AM EDT [employer] Hct 25.2(L) 34.0 - 45.0 % 05/27/2025 1:32 AM EDT [facility] Blood VENOUS STRUCTURE / Unknown Venipuncture / Unknown 05/27/2025 1:15 AM EDT 05/27/2025 1:26 AM EDT us Reuben Franz APRN HEMATOLOGY ORDERABLES Final Result Performing Organization Address [facility] Co de Phone Number [facility] [employer] [facility] [address] [facility] , [place] [address] * (ABNORMAL) GLUCOSE METER POC (05/26/2025 11:17 PM EDT) [facility] Glucose Meter POC 137(H) 70 - 100 mg/dL 05/26/2025 11:18 PM EDT [facility] Sample Type Capillary 05/26/2025 11:18 PM EDT [facility] Patient Status Non-Critical Patient 05/26/2025 11:18 PM EDT [facility] Blood BLOOD SPECIMEN / Unknown 05/26/2025 11:17 PM EDT 05/26/2025 11:18 PM EDT Stephen Pickard MD POINT OF CARE TEST ORDERABLE S Final Result Performing Organization Address City/[facility]/ZIP Co de Phone Number [facility] [address] [place] [address] * CORTISOL 60 MINUTES (05/26/2025 7:36 PM EDT) Cortisol 60 Min 29.60 mcg/dL 8:26 PM EDT [facility] [employer] [facility] Blood VENOUS STRUCTURE / Unknown Venipuncture / Unknown 05/26/2025 7:36 PM EDT 05/26/2025 7:43 PM EDT Narrative [facility] - 05/26/2025 8:26 PM EDT Test performed using [employer] Cortisol II assay. Stimulated cortisol reference value not established by this laboratory. us Stephne Pickard MD CHEMISTRY ORDERABLES Final R esult Performing Organization Address City/[facility]/ZIP Co de Phone Number [facility] [employer] , [place] [address] * CORTISOL 30 MINUTES (05/26/2025 7:05 PM EDT) Cortisol 30 Min 25.20 mcg/dL 8:03 PM EDT [facility] [employer] [facility] Blood VENOUS BLOOD / Unknown Venipuncture / Unknown 05/26/2025 7:05 PM EDT 05/26/2025 7:19 PM EDT Narrative [facility] - 05/26/2025 8:03 PM EDT Test performed using [employer] Cortisol II assay. Stimulated cortisol reference value not established by this laboratory. us Stephen Pickard MD CHEMISTRY ORDERABLES Final R esult [facility] [employer] , [place] [address] * CORTISOL BASELINE (05/26/2025 6:49 PM EDT) Cortisol Baseline 11.20 mcg/dL 05/26/2025 7:39 PM EDT [facility] Blood VENOUS BLOOD / Unknown Venipuncture / Unknown 05/26/2025 6:49 PM EDT 05/26/2025 6:49 PM EDT Narrative [facility] - 05/26/2025 7:39 PM EDT AM: 4.82 [...] ORDERABLES Final R esult Performing Organization Address City/[facility]/ZIP Co de Phone Number [facility] [address] [facility], [place] [address] * (ABNORMAL) HEMOGLOBIN AND HEMATOCRIT (05/26/2025 6:26 PM EDT) [facility] Hgb 7.8(L) 11.2 - 15.7 g/dL 05/26/2025 6:43 PM EDT [facility] Hct 24.3(L) 34.0 - 45.0 % 05/26/2025 6:43 PM EDT [facility] Blood VENOUS STRUCTURE / Unknown Venipuncture / Unknown 05/26/2025 6:26 PM EDT 05/26/2025 6:37 PM EDT Reuben Franz APRN HEMATOLOGY ORDERABLES Final Result Performing Organization Address [facility]/ZIP Co de Phone Number [address] [address] * (ABNORMAL) TROPONIN-T HIGH SENSITIVITY 6 HR (05/26/2025 6:26 PM EDT) Pathologist [facility] [id number] 6HR 59(H) <14 ng/L 05/26/2025 6:55 PM EDT [facility] hs-cTnT 6Hr Delta from Baseline -3 <12 ng/L 05/26/2025 6:55 PM EDT [facility] Blood VENOUS STRUCTURE / Unknown Venipuncture / Unknown 05/26/2025 6:26 PM EDT 05/26/2025 6:39 PM EDT Narrative [facility] - 05/26/2025 6:55 PM EDT Ingestion of angie doses of biotin (>5 mg/day) taken within 8 hours of drawing blood sample can interfere with this immunoassay test. us Stephen Pickard MD CHEMISTRY ORDERABLES Final R esult Performing Organization Address City/[facility]/[place] [address] * (ABNORMAL) GLUCOSE METER POC (05/26/2025 6:15 PM EDT) [facility] Glucose Meter POC 118(H) 70 - 100 mg/dL 05/26/2025 6:17 PM EDT [facility] Sample Type Capillary 05/26/2025 6:17 PM EDT [facility] Patient Status Non-Critical Patient 05/26/2025 6:17 PM EDT [facility] Blood BLOOD SPECIMEN / Unknown 05/26/2025 6:15 PM EDT 05/26/2025 6:17 PM EDT us Stephen Pickard MD POINT OF CARE TEST ORDERABLE S Final Result Performing Organization Address [facility] Co de Phone Number [facility] [address] [place] [address] * XR CHEST AP PORTABLE (05/26/2025 5:39 [...] terminates at the lower SVC. Luis Manuel Masy MD IMG DIAGNOSTIC IMAGING ORDERA BLES Final Result * STAPHYLOCOCCUS AUREUS SCREEN (05/26/2025 4:24 PM EDT) Pathologist [facility] Staph aureus PCR Not Detected Not Detected 05/26/2025 6:20 PM EDT [facility] MRSA PCR Not Detected Not Detected 05/26/2025 6:20 PM EDT [facility], [facility] Swab BOTH ANTERIOR NARES / Unknown 05/26/2025 4:24 PM EDT 05/26/2025 4:40 PM EDT Narrative [facility], [facility] - 05/26/2025 6:20 PM EDT Staphylococcus aureus target DNA sequence is not detected. This qualitative assay is intended for the detection of Staphylococcus aureus proprietary sequences for the staphylococcal protein A (spa) gene, the gene for methicillin resistance (mecA), and the staphylococcal cassette chromosome mec (SCCmec) inserted into the SA chromosomal attB site. This assay utilizes real time PCR on the [employer] GeneXpert Infinity, and its performance has been verified by the [facility]. A negative result does not rule [...] has been developed and validated by the [facility] laboratory. Detailed methodology is available upon request. us Luis Manuel Mays MD MICROBIOLOGY - GENERAL ORDERA BLES Final Result Performing Organization Address City/[facility]/ZIP Co de Phone Number [facility] [address] [facility], [place] [address] * RED BLOOD CELLS REQUEST (05/26/2025 4:17 PM EDT) Product Code [id number] [facility] Unit Number [id number] [facility] Crossmatch Interp Compatible [facility] Dispense Status RETURNED [facility] Blood Expiration Date [id number] [facility] ISBT 128 Type [address] [facility] BLOOD [facility] Blood Unit Volume 300 ml [facility] BA CODING SYSTEM [id number] [facility] Blood Type (Unit) A POS [facility] 05/26/2025 4:17 PM EDT 05/26/2025 4:21 PM EDT us Luis Manuel Mays MD BLOOD PRODUCT ORDERS Final Re sult Performing Organization Address [facility] Co de Phone Number [facility] [address] [place] [address] * IONIZED CALCIUM - INPATIENT (05/26/2025 4:17 PM EDT) Calcium Ionized 1.13 1.12 - 1.32 mmol/L 05/26/2025 4:29 PM EDT [facility] [employer] [facility] Blood VENOUS BLOOD / Unknown Venipuncture / Unknown 05/26/2025 4:17 PM EDT 05/26/2025 4:25 PM EDT us Luis Manuel Mays MD CHEMISTRY ORDERABLES Final Re sult [facility] [employer] [address] [facility], [address] [place] [id number] * BB HISTORY CHECK (05/26/2025 4:17 PM EDT) BB HISTORY CHECK (1) Previous History OK 05/26/2025 11:40 PM EDT [facility] Blood VENOUS BLOOD / Unknown Venipuncture / Unknown 05/26/2025 4:17 PM EDT 05/26/2025 4:21 PM EDT us Luis Manuel Mays MD BLOOD BANK ORDERABLES Final R esult Performing Organization Address City/[facility]/ZIP Co de Phone Number [facility] [address] [place] [address] * ANTIBODY SCREEN IGG (05/26/2025 4:17 PM EDT) Pathologist [facility] ABSC IgG Int Negative 05/26/2025 11:40 PM EDT [facility] Blood VENOUS BLOOD / Unknown Venipuncture / Unknown 05/26/2025 4:17 PM EDT 05/26/2025 4:21 PM EDT us Luis Manuel Mays MD BLOOD BANK ORDERABLES Final R esult Performing Organization Address City/[facility]/ZIP Co de Phone Number [facility] [address] [place] [address] * ABORH (05/26/2025 4:17 PM EDT) Pathologist [facility] ABORH Int A POS 05/26/2025 11:40 PM EDT [facility] Blood VENOUS BLOOD / Unknown Venipuncture / Unknown 05/26/2025 4:17 PM EDT 05/26/2025 4:21 PM EDT us Luis Manuel Mays MD BLOOD BANK ORDERABLES Final R esult [facility] [address] [place], [place] [id number] * POTASSIUM WHOLE BLOOD (05/26/2025 4:17 PM EDT) Pathologist [facility] K-WB 4.6 3.5 - 5.0 mEq/L 05/26/2025 4:29 PM EDT [facility] Blood VENOUS BLOOD / Unknown Venipuncture / Unknown 05/26/2025 4:17 PM EDT 05/26/2025 4:25 PM EDT Luis Manuel Mays MD CHEMISTRY ORDERABLES Final Re sult [facility] [employer] , [address] [place] [id number] * FIBRINOGEN (05/26/2025 4:17 PM EDT) [facility] [employer] 312 196 - 444 mg/dL 05/26/2025 4:38 PM EDT [facility] [employer] [facility] Blood VENOUS BLOOD / Unknown Venipuncture / Unknown 05/26/2025 4:17 PM EDT 05/26/2025 4:21 PM EDT Stephen Pickard MD HEMATOLOGY ORDERABLES Final Result [facility] [employer] , [place] [address] * (ABNORMAL) PT / INR (05/26/2025 4:17 PM EDT) [facility] PT 16.0(H) 10.5 - 13.6 second(s) 05/26/2025 4:38 PM EDT [facility] [employer] [facility] INR 1.38(H) 0.91 - 1.18 (ratio) 05/26/2025 4:38 PM EDT [facility] Comment: Level of Therapy Indications Target INR Range Standard Dose Treatment and prophylaxis of venous 2.0 - 3.0 thrombosis, pulmonary embolism High Dose High risk patients with mechanical 2.5 - 3.5 heart valves Blood VENOUS BLOOD / Unknown Venipuncture / Unknown 05/26/2025 4:17 PM EDT 05/26/2025 4:21 PM EDT us Stephen Pickard MD HEMATOLOGY ORDERABLES Final Result Performing Organization Address [facility] Co de Phone Number [facility] [employer], [place] [address] * (ABNORMAL) HEMOGLOBIN (05/26/2025 4:17 PM EDT) Hgb 8.4(L) 11.2 - 15.7 g/dL 05/26/2025 4:32 PM EDT [facility] Blood VENOUS BLOOD / Unknown Venipuncture / Unknown 05/26/2025 4:17 PM EDT 05/26/2025 4:21 PM EDT us Stephen Pickard MD HEMATOLOGY ORDERABLES Final Result Performing Organization Address [facility] de Phone Number [facility] [employer] , [place] [address] * (ABNORMAL) ADRENOCORTICOTROPIC HORMONE -REF LAB (05/26/2025 3:20 PM EDT) ACTH 3.3(L) 7.2 - 63.3 pg/mL 05/28/2025 7:58 PM EDT [employer] Comment: INTERPRETIVE INFORMATION: Adrenocorticotropic Hormone Reference interval based on samples collected between 7 a.m. and 10 a.m. No reference intervals established for p.m. collections. Pediatric reference values are the same as adults (Acta Paediatr Scand 1981;70:341-345). This assay measures intact ACTH 1-39; some types of synthetic ACTH and ACTH fragments are not detected by this assay. Performed By: [employer] [address] [place] [id number] Poly Operator: Gigi Cheney MD, PhD CLIA Number: [id number] Blood VENOUS BLOOD / Unknown Venipuncture / Unknown 05/26/2025 3:20 PM EDT 05/26/2025 3:23 PM EDT us Stephen Pickard MD CHEMISTRY ORDERABLES Final R esult [employer] [address] [place] [address] * (ABNORMAL) HEPATIC FUNCTION PANEL (05/26/2025 2:11 [...] ORDERABLES Final Re sult [facility] [address] [facility] , [place] [address] * CORTISOL (05/26/2025 2:11 PM EDT) Cortisol 7.55 mcg/dL 05/26/2025 2:5 1 PM EDT [facility] Blood VENOUS BLOOD / Unknown Venipuncture / Unknown 05/26/2025 2:11 PM EDT 05/26/2025 2:15 PM EDT Narrative [facility] [employer] [facility] - 05/26/2025 2:51 PM EDT AM: 4.82 [...] ORDERABLES Final R esult Performing Organization Address [facility] Co de Phone Number [facility] [employer] [address] , [place] [address] * (ABNORMAL) HEMOGLOBIN (05/26/2025 2:11 PM EDT) [facility] Hgb 7.0(L) 11.2 - 15.7 g/dL 05/26/2025 2:21 PM EDT [facility] [employer] [facility] Blood VENOUS BLOOD / Unknown Venipuncture / Unknown 05/26/2025 2:11 PM EDT 05/26/2025 2:15 PM EDT us Stephen Pickard MD HEMATOLOGY ORDERABLES Final Result Performing Organization Address [facility] Co de Phone Number [facility] [employer] [address] , [place] [address] * (ABNORMAL) TROPONIN-T HIGH SENSITIVITY 2HR (05/26/2025 2:11 PM EDT) [facility] [id number] 2HR 70(H) <14 ng/L 05/26/2025 2:52 PM EDT [facility] [employer] [facility] hs-cTnT 2Hr Delta from Baseline 8(H) <4 ng/L 05/26/2025 2:52 PM EDT [facility] Blood VENOUS BLOOD / Unknown Venipuncture / Unknown 05/26/2025 2:11 PM EDT 05/26/2025 2:15 PM EDT Narrative [facility] - 05/26/2025 2:52 PM EDT Ingestion of angie doses of biotin (>5 mg/day) taken within 8 hours of drawing blood sample can interfere with this immunoassay test. us Stephen Pickard MD CHEMISTRY ORDERABLES Final R esult [facility] [address] [facility] , [place] [address] * (ABNORMAL) BLOOD GAS ARTERIAL (05/26/2025 1:01 PM EDT) pH 7.41 7.35 - 7.45 pH 05/26/2025 1:14 PM EDT [facility] pCO2 32(L) 35 - 45 mmHg 05/26/2025 1:14 PM EDT [facility] pO2 75(L) 80 - 100 mmHg 05/26/2025 1:14 PM EDT [facility] HCO3 19.6(L) 22.0 - 26.0 mmol/L 05/26/2025 1:14 PM EDT [facility] TCO2 19(L) 22 - 29 mmol/L 05/26/2025 1:14 PM EDT [facility] Base Excess -4.1(L) -2.0 - 3.0 mmol/L 05/26/2025 1:14 PM EDT [facility] O2 Sat 95.9 95.0 - 98.0 % 05/26/2025 1:14 PM EDT [facility] Inspired O2 2L 05/26/2025 1:14 PM EDT [facility] Blood ARTERIAL BLOOD / Unknown Arterial / Unknown 05/26/2025 1:01 PM EDT 05/26/2025 1:12 PM EDT us Stephen Pickard MD CHEMISTRY ORDERABLES Final R esult Performing Organization Address City/[facility]/ZIP Co de Phone Number [facility] [employer] [address] , [place] [address] * PROCALCITONIN (05/26/2025 1:00 PM EDT) Procalcitonin 0.08 <=0.49 ng/mL 05/26/2025 1:55 PM EDT [facility] [employer] [facility] Blood VENOUS BLOOD / Unknown Venipuncture / Unknown 05/26/2025 1:00 PM EDT 05/26/2025 1:18 PM EDT Narrative [facility] [employer] [facility] - 05/26/2025 1:55 PM EDT Procalcitonin <0.50 [...] ORDERABLES Final R esult Performing Organization Address [facility] Co de Phone Number [facility] [employer] [address] [place] [address] , [place] [address] * LACTIC ACID (05/26/2025 1:00 PM EDT) Lactic Acid 1.5 0.5 - 1.9 mmol/L 05/26/2025 1:30 PM EDT [facility] Blood VENOUS BLOOD / Unknown Venipuncture / Unknown 05/26/2025 1:00 PM EDT 05/26/2025 1:16 PM EDT us Stephen Pickard MD CHEMISTRY ORDERABLES Final R esult [facility] [address] [place] [address] * (ABNORMAL) BASIC METABOLIC PANEL (05/26/2025 1:00 PM EDT) Sodium 136 136 - 145 mmol/L 05/26/2025 1:33 PM EDT [facility] Potassium 5.3(H) 3.5 - 5.0 mmol/L 05/26/2025 1:33 PM EDT [facility] Comment:Hemolysis detected b y analyzer. Hemolysis at this level may increase the potassium concentration > 0.1 mmol/L. Recommend recollection if clinically indicated. Chloride 108(H) 98 - 107 mmol/L 05/26/2025 1:33 PM EDT [facility] Total CO2 19(L) 22 - 29 mmol/L 05/26/2025 1:33 PM EDT [facility] Anion Gap 9 7 - 16 mmol/L 05/26/2025 1:33 PM EDT [facility] Calcium 7.7(L) 8.8 - 10.4 mg/dL 05/26/2025 1:33 PM EDT [facility] Glucose Lvl 129(H) 70 - 99 mg/dL 05/26/2025 1:33 PM EDT [facility] BUN 22 8 - 23 mg/dL 05/26/2025 1:33 PM EDT [facility] Creatinine 0.94 0.51 - 1.30 mg/dL 05/26/2025 1:33 PM EDT [facility] eGFR (CKD-EPIcr 2020) 59(L) >=60 mL/min/1. 73 m2 05/26/2025 1:33 PM EDT [facility] Comment:Estimated GFR was ca lculated using the CKD-EPIcr (2020) equation refit without race. The equation is recommended by the [employer] - [place] [employer] Nephrology Task Force. Blood VENOUS BLOOD / Unknown Venipuncture / Unknown 05/26/2025 1:00 PM EDT 05/26/2025 1:16 PM EDT us Stephen Pickard MD CHEMISTRY ORDERABLES Final R esult [place] [id number] * (ABNORMAL) CBC (05/26/2025 1:00 PM EDT) [...] 1:34 PM EDT [facility] Platelet 65(L) 155 - 369 x10(3)/mcL 05/26/2025 1:34 PM EDT [facility] MPV 13.6(H) 8.8 - 12.5 fL 05/26/2025 1:34 PM EDT [facility] Blood VENOUS BLOOD / Unknown Venipuncture / Unknown 05/26/2025 1:00 PM EDT 05/26/2025 1:16 PM EDT us Stephen Pickard MD HEMATOLOGY ORDERABLES Final Result Performing Organization Address City/[facility] Co de Phone Number [employer] [address] [facility], [place] [address] * (ABNORMAL) TROPONIN-T HIGH SENSITIVITY BASELINE W/ REFLEX (05/26/2025 1:00 PM EDT) pq-[id number] 62(H) <14 ng/L 05/26/2025 1:37 PM EDT [facility] Blood VENOUS BLOOD / Unknown Venipuncture / Unknown 05/26/2025 1:00 PM EDT 05/26/2025 1:16 PM EDT Narrative [facility] - 05/26/2025 1:37 PM EDT Ingestion of angie doses of biotin (>5 mg/day) taken within 8 hours of drawing blood sample can interfere with this immunoassay test. us Stephen Pickard MD CHEMISTRY ORDERABLES Final R esult Performing Organization Address [facility] Co de Phone Number [facility] [address] [place] [phone] * (ABNORMAL) GLUCOSE METER POC (05/26/2025 12:37 PM EDT) Glucose Meter POC 129(H) 70 - 100 mg/dL 05/26/2025 12:38 PM EDT [facility] Sample Type Capillary 05/26/2025 12:38 PM EDT [facility] Patient Status Non-Critical Patient 05/26/2025 12:38 PM EDT [facility] Blood BLOOD SPECIMEN / Unknown 05/26/2025 12:37 PM EDT 05/26/2025 12:38 PM EDT us Stephen Pickard MD POINT OF CARE TEST ORDERABLE S Final Result Performing Organization Address City/[facility]/ZIP Co de Phone Number [facility] [address] [place] [id number] * EK EKG 12 LEAD (05/26/2025 12:27 PM EDT) Anatomical Region Laterality Modality Electrocardiogra phy 05/26/2025 12:4 2 PM EDT Impressions 05/27/2025 7:[address] [facility] Test Date: 2025-05-26 Pat Name: SKYLER BAUTISTA Department: DEPID Room: [facility] Gender: Female Museum Assistant: Sekou : 1940 Requested By: STEPHEN Earl Order Number: [id number] Reading MD: Shayy Vega DO Measurements Intervals Adams Rate: 78 P: 0 IL: 0 QRS: 16 QRSD: 88 T: 27 [...] Pat Name: SKYLER BAUTISTA Department: DEPID Room: [facility] Gender: Female Museum Assistant: Sekou : 1940 Requested By: STEPHEN Earl Order Number: [id number] Reading MD: Shayy Vega DO Measurements Intervals Adams Rate: 78 P: 0 IL: 0 QRS: 16 QRSD: 88 T: 27 [...] STAIN) 05/31/2025 1:00 PM EDT [facility] Blood VENOUS BLOOD / Unknown Venipuncture / Unknown 05/26/2025 11:58 AM EDT 05/26/2025 12:03 PM EDT us Stephen Pickard MD MICROBIOLOGY - GENERAL ORDER CELESTE Final Result Performing Organization Address [facility] Co de Phone Number [facility] [employer], [place] [address] * BLOOD CULTURE (NO STAIN) (05/26/2025 11:58 AM EDT) Culture Result No Growth at 120 hours. BLOOD CULTURE (NO STAIN) 05/31/2025 1:00 PM EDT [employer] Blood VENOUS BLOOD / Unknown Venipuncture / Unknown 05/26/2025 11:58 AM EDT 05/26/2025 12:02 PM EDT us Stephen Pickard MD MICROBIOLOGY - GENERAL ORDER CELESTE Final Result Performing Organization Address [facility] de Phone Number [facility] [employer] , [place] [address] * (ABNORMAL) URINE CULTURE (NO STAIN) (05/26/2025 11:16 AM EDT) Culture Positive Growth(A) 05/27/2025 1:42 PM EDT [facility] [employer] Culture 3,000 CFU/mL Proteus mirabilis SUSCEPTIB ILITY RESULT 05/27/2025 1:42 PM EDT [facility] [employer] Comment:refer to susceptibil ity on urine culture collected - 05/23/2025 1531 Urine URINARY BLADDER STRUCTURE / Unknown 05/26/2025 11:16 AM EDT 05/26/2025 11:38 AM EDT us Stephen Pickard MD MICROBIOLOGY - GENERAL ORDER CELESTE Final Result [facility] [address] [facility], [address] [place] [id number] * EXTRA HUITRON URINE CX (05/26/2025 11:16 AM EDT) Urine URINARY BLADDER STRUCTURE / Unknown 05/26/2025 11:16 AM EDT 05/26/2025 11:32 AM EDT us Stephen Pickard MD MICROBIOLOGY - GENERAL ORDER CELESTE Final Result [facility] [address] [place] [address] * (ABNORMAL) URINALYSIS REFLEX (05/26/2025 11:16 AM [...] AM EDT [facility] UA Spec Grav 1.017 1.001 - 1.035 no units 05/26/2025 11:38 AM EDT [facility] Comment:Reference range helga d for random specimens only. UA WBC 5(H) 0 - 4 /HPF 05/26/2025 11:38 AM EDT [facility] UA RBC 1 0 - 3 /HPF 05/26/2025 11:38 AM EDT [facility] UA Squam Epi 2+ /LPF 05/26/2025 11:38 AM EDT [facility] UA Mucus Trace /LPF 05/26/2025 11:38 AM EDT [facility] UA Bacteria Trace(A) Negative /HPF 05/26/2025 11:38 AM EDT [facility] Urine URINARY BLADDER STRUCTURE / Unknown 05/26/2025 11:16 AM EDT 05/26/2025 11:32 AM EDT us Stephen Pickard MD URINE ORDERABLES Final Resul t [facility] [address] [facility] , [place] [address] * XR CHEST AP PORTABLE (05/26/2025 11:04 [...] contactthe office of the ordering clinician. us Stephen Pickard MD IMG DIAGNOSTIC IMAGING ORDER CELESTE Final Result * ECG AND WAVEFORMS - TELEMETRY (05/26/2025 7:53 AM EDT) [facility] ECG INTERPRET Sinus Arrythmia [facility] 05/26/2025 7:53 AM EDT Narrative [facility] - 05/26/2025 10:34 AM EDT ROUTINE -HB QRS 0.11 See Clinical Report link for waveform capture us Unknown Provider POINT OF CARE CARDIOLOGY Final Result [facility] 1 [place] [id number] * (ABNORMAL) RENAL FUNCTION PANEL (05/26/2025 6:15 AM EDT) [facility] Sodium 135(L) 136 - 145 mmol/L 05/26/2025 7:27 AM EDT [facility] Potassium 4.6 3.5 - 5.0 mmol/L 05/26/2025 7:27 AM EDT [facility] Chloride 108(H) 98 - 107 mmol/L 05/26/2025 7:27 AM EDT [facility] Total CO2 19(L) 22 - 29 mmol/L 05/26/2025 7:27 AM EDT [facility] Anion Gap 8 7 - 16 mmol/L 05/26/2025 7:27 AM EDT [facility] Calcium 8.0(L) 8.8 - 10.4 mg/dL 05/26/2025 7:27 AM EDT [facility] Glucose Lvl 120(H) 70 - 99 mg/dL 05/26/2025 7:27 AM EDT [facility] BUN 20 8 - 23 mg/dL 05/26/2025 7:27 AM EDT [facility] Creatinine 0.94 0.51 - 1.30 mg/dL 05/26/2025 7:27 AM EDT [facility] Albumin 3.1(L) 3.2 - 4.6 gm/dL 05/26/2025 7:27 AM EDT [facility] Phosphorus 1.9(L) 2.5 - 4.5 mg/dL 05/26/2025 7:27 AM EDT [facility] eGFR (CKD-EPIcr 2020) 59(L) >=60 mL/min/1.7 3 m2 05/26/2025 7:27 AM EDT [facility] Comment:Estimated GFR was ca lculated using the CKD-EPIcr (2020) equation refit without race. The equation is recommended by the National Kidney [employer] - [place] [employer] of Nephrology Task Force. Blood VENOUS BLOOD / Unknown Venipuncture / Unknown 05/26/2025 6:15 AM EDT 05/26/2025 6:53 AM EDT us Stephen Pickard MD CHEMISTRY ORDERABLES Final R esult [facility] [address] [facility] , [address] [place] [id number] * (ABNORMAL) CBC (05/26/2025 6:15 AM EDT) WBC 5.6 3.7 - 10.3 x10(3)/mcL 05/26/2025 7:05 AM EDT [facility] RBC 2.39(L) 3.90 - 5.20 x10(6)/mcL 05/26/2025 7:05 AM EDT [facility] Hgb 8.3(L) 11.2 - 15.7 g/dL 05/26/2025 7:05 AM EDT [facility] Hct 25.7(L) 34.0 - 45.0 % 05/26/2025 7:05 AM EDT [facility] MCV 107.5(H) 80.0 - 100.0 fL 05/26/2025 7:05 AM EDT [facility] MCH 34.7(H) 26.0 - 34.0 pg 05/26/2025 7:05 AM EDT [facility] MCHC 32.3 30.7 - 35.5 g/dL 05/26/2025 7:05 AM EDT [facility] RDW 21.1(H) <=14.9 % 05/26/2025 7:05 AM EDT [facility] Platelet 71(L) 155 - 369 x10(3)/mcL 05/26/2025 7:05 AM EDT [facility] MPV 12.8(H) 8.8 - 12.5 fL 05/26/2025 7:05 AM EDT [facility] Blood VENOUS BLOOD / Unknown Venipuncture / Unknown 05/26/2025 6:15 AM EDT 05/26/2025 6:53 AM EDT us Stephen Pickard MD HEMATOLOGY ORDERABLES Final Result [facility] [address] [facility], [place] [address] * ECG AND WAVEFORMS - TELEMETRY (05/25/2025 7:00 PM EDT) ECG INTERPRET Atrial Fib [facility] 05/25/2025 7:00 PM EDT Narrative [facility] - 05/25/2025 8:57 PM EDT ROUTINE/GGG QRS 0.05 See Clinical Report link for waveform capture us Unknown Provider POINT OF CARE CARDIOLOGY Final Result [facility] [address] [place] [address] * ECG AND WAVEFORMS - TELEMETRY (05/25/2025 7:57 AM EDT) ECG INTERPRET Sinus Arrythmia [facility] 05/25/2025 7:57 AM EDT Narrative [facility] - 05/25/2025 9:16 AM EDT ROUTINE -HB QRS 0.08 See Clinical Report link for waveform capture us Unknown Provider POINT OF CARE CARDIOLOGY Final Result [facility] 1 [place] [id number] * (ABNORMAL) CBC (05/25/2025 6:50 AM EDT) [facility] WBC 6.0 3.7 - 10.3 x10(3)/mcL 05/25/2025 [...] HEMATOLOGY ORDERABLES Final Result [facility] [address] [facility] , [place] [address] * (ABNORMAL) BASIC METABOLIC PANEL (05/25/2025 6:50 AM EDT) Sodium 137 136 - 145 mmol/L 05/25/2025 7:47 AM EDT [facility] Potassium 4.3 3.5 - 5.0 mmol/L 05/25/2025 7:47 AM EDT [facility] Chloride 111(H) 98 - 107 mmol/L 05/25/2025 7:47 AM EDT [facility] Total CO2 19(L) 22 - 29 mmol/L 05/25/2025 7:47 AM EDT [facility] Anion Gap 7 7 - 16 mmol/L [...] 3 m2 05/25/2025 7:47 AM EDT [facility] Comment:Estimated GFR was ca lculated using the CKD-EPIcr (2020) equation refit without race. The equation is recommended by the National Kidney [employer] - [place] [employer] of Nephrology Task Force. Blood VENOUS BLOOD / Unknown Venipuncture / Unknown 05/25/2025 6:50 AM EDT 05/25/2025 7:10 AM EDT us Stephen Pickard MD CHEMISTRY ORDERABLES Final R esult [facility] [address] [facility], [place] [address] * ECG AND WAVEFORMS - TELEMETRY (05/24/2025 7:00 PM EDT) Pathologist [facility] ECG INTERPRET Atrial Fib [facility] 05/24/2025 7:00 PM EDT Narrative [facility] - 05/24/2025 7:43 PM EDT ROUTINE/MS QRS 0.10 See Clinical Report link for waveform capture us Unknown Provider POINT OF CARE CARDIOLOGY Final Result Performing Organization Address [facility] Co de Phone Number [facility] [address] [place] [address] * (ABNORMAL) CBC (05/24/2025 1:55 PM EDT) [facility] Signature WBC 3.8 3.7 - 10.3 x10(3)/mcL 05/24/2025 2:11 PM EDT [facility] RBC 2.83(L) 3.90 - 5.20 x10(6)/mcL 05/24/2025 2:11 PM EDT [facility] Hgb 9.9(L) 11.2 - 15.7 g/dL 05/24/2025 2:11 PM EDT [facility] Hct 30.0(L) 34.0 - 45.0 % 05/24/2025 2:11 PM EDT [facility] MCV 106.0(H) 80.0 - 100.0 fL 05/24/2025 2:11 PM EDT [facility] MCH 35.0(H) 26.0 - 34.0 pg 05/24/2025 2:11 PM EDT [facility] MCHC 33.0 30.7 - 35.5 g/dL 05/24/2025 2:11 PM EDT [facility] RDW 21.9(H) <=14.9 % 05/24/2025 2:11 PM EDT [facility] Platelet 64(L) 155 - 369 x10(3)/mcL 05/24/2025 2:11 PM EDT [facility] MPV 12.1 8.8 - 12.5 fL 05/24/2025 2:11 PM EDT [facility] Blood VENOUS BLOOD / Unknown Venipuncture / Unknown 05/24/2025 1:55 PM EDT 05/24/2025 2:01 PM EDT us Lawrence Wolf MD HEMATOLOGY ORDERABLES Final Result Performing Organization Address [facility] Co de Phone Number [facility] [employer] [address] [facility], [place] [address] * (ABNORMAL) GLUCOSE METER POC (05/24/2025 11:39 AM EDT) [facility] Glucose Meter POC 144(H) 70 - 100 mg/dL 05/24/2025 11:41 AM EDT [facility] Sample Type Capillary 05/24/2025 11:41 AM EDT [facility] Patient Status Non-Critical Patient 05/24/2025 11:41 AM EDT [facility] Blood BLOOD SPECIMEN / Unknown 05/24/2025 11:39 AM EDT 05/24/2025 11:41 AM EDT us Stephen Pickard MD POINT OF CARE TEST ORDERABLE S Final Result Performing Organization Address City/[facility]/ZIP Co de Phone Number [facility] [address] [place] [address] * TRANSFUSE RED BLOOD CELLS (05/24/2025 10:43 AM EDT) us Lawrence Wolf MD NURSING TREATMENT ORDERABLE S - BLOOD ADMIN Edited Result - Final * TRANSFUSE RED BLOOD CELLS (05/24/2025 10:43 AM EDT) us Lawrence Wolf MD NURSING TREATMENT ORDERABLE S - BLOOD ADMIN Edited Result - Final * TRANSFUSE RED BLOOD CELLS (05/24/2025 9:46 AM EDT) Lawrence Wolf MD NURSING TREATMENT ORDERABLE S - BLOOD ADMIN Edited Result - Final * TRANSFUSE RED BLOOD CELLS (05/24/2025 9:46 AM EDT) Lawrence Wolf MD NURSING TREATMENT ORDERABLE S - BLOOD ADMIN Edited Result - Final * PATHOLOGY TISSUE REQUEST (05/24/2025 8:41 AM EDT) CASE REPORT Surgical Pathology Case: [id number] Authorizing Provider: Lawrence Wolf MD Collected: 05/24/2025 0841 Ordering Location: [facility] Received: 05/24/2025 1101 Pathologist: Addie Barakat MD Specimen: Leg, Left, Left Leg and knee 05/29/2025 3:42 PM EDT [facility] FINAL DIAGNOSIS Left leg and knee, [id number] amputation: - Ulcer and soft tissue necrosis at previous amputation site. - Atherosclerosis. - Focal areas of necrosis and acute inflammation consistent with acute osteomyelitis. - Skin and soft tissue margins are viable. - Bone margin is negative for acute osteomyelitis. 05/29/2025 3:42 PM EDT [facility] at 1542 EDT GROSS [...] soft tissue margins; Green - femoral vessels; [place] - anterior tibial vessels; Black - posterior [...] diffusely calcified and up to 95% stenotic. Nailhead Operator sections are submitted as follows: A1: Bone marrow from margin, in a biopsy bag and following Decal Stat A2: Skin and soft tissue margin, perpendicularly sectioned A3: Lesion to underlying bone, following Decal Stat A4: Mid cross sections of vessels with stenotic and calcified areas, following Decal Stat Kesha Cerda MS, PA (ASCP) 05/27/2025 05/29/2025 3:42 PM EDT [facility] MICROSCOPIC DESCRIPTION The microscopic examination may have been rendered in whole, or in part, by analyzing high-resolution digital images (whole slide images) on the [employer] Digital Pathology platform validated at [facility]. 05/29/2025 3:42 PM EDT [facility] EMBEDDED IMAGES 05/29/2025 3:42 PM EDT [facility] Tissue STRUCTURE OF LEFT LOWER LEG / Unknown 05/24/2025 8:41 AM EDT 05/24/2025 11:01 AM EDT us Lawrence Wolf MD PATHOLOGY ORDERABLES Final Result [address] [address] [place] [address] * US ANES GUIDANCE FOR NERVE BLOCK [...] 7:05 AM EDT) ECG INTERPRET Atrial Fib [facility] 05/24/2025 7:05 AM EDT Narrative [facility] - 05/24/2025 7:52 AM EDT PVCS-ROUTINE/PB QRS 0.09 See Clinical Report link for waveform capture us Unknown Provider POINT OF CARE CARDIOLOGY Final Result Performing Organization Address [facility]/ZIP Co de Phone Number [facility] [address] [place] [address] * (ABNORMAL) GLUCOSE METER POC (05/24/2025 6:32 AM EDT) [facility] Signature Glucose Meter POC 104(H) 70 - 100 mg/dL 05/24/2025 6:34 AM EDT [facility] Sample Type Capillary 05/24/2025 6:34 AM EDT [facility] Patient Status Non-Critical Patient 05/24/2025 6:34 AM EDT [facility] Blood BLOOD SPECIMEN / Unknown 05/24/2025 6:32 AM EDT 05/24/2025 6:34 AM EDT us Stephen Pickard MD POINT OF CARE TEST ORDERABLE S Final Result Performing Organization Address [facility] Co de Phone Number [facility] [address] [place] [address] * ECG AND WAVEFORMS - TELEMETRY (05/23/2025 7:24 PM EDT) ECG INTERPRET Atrial Fib [facility] 05/23/2025 7:24 PM EDT Narrative [facility] - 05/23/2025 7:31 PM EDT (AM) ROUTINE QRS 0.12 See Clinical Report link for waveform capture us Unknown Provider POINT OF CARE CARDIOLOGY Final Result Performing Organization Address [facility] Co de Phone Number [facility] [address] [place] [address] * (ABNORMAL) URINE CULTURE (NO STAIN) (05/23/2025 3:31 PM EDT) Culture Positive Growth(A) 05/26/2025 9:43 AM EDT [facility] Culture >100,000 CFU/mL Proteus mirabilis SUSCEPTIB ILITY RESULT 05/26/2025 9:43 AM EDT [facility] Comment: Confirmed positive for ESBL (extended spectrum Beta lactamase) production. If isolate susceptible and patient is clinically stable, sulfamethoxazole-trimethoprim is the drug of choice. Fluoroquinolones may also be considered. Nitrofurantoin may be associated with increased risk of treatment failure. Culture 50,000 CFU/mL Escherichia coli SUSCEPTIB ILITY RESULT 05/26/2025 9:43 AM EDT [employer] Urine STRUCTURE OF URINARY TRACT PROPER / [...] tho xazole SUSCEPTIBILITY RESULT >2/38 ug/mL: Resistant us Stephen Pickard MD MICROBIOLOGY - GENERAL ORDER CELESTE Final Result Performing Organization Address [facility] Co de Phone Number [facility] [address] [facility], [place] [address] * EXTRA HUITRON URINE CX (05/23/2025 3:31 PM EDT) Urine STRUCTURE OF URINARY TRACT PROPER / Unknown 05/23/2025 3:31 PM EDT 05/23/2025 3:36 PM EDT us Stephen Pickard MD MICROBIOLOGY - GENERAL ORDER CELESTE Final Result Performing Organization Address [facility] [place] [address] * (ABNORMAL) URINALYSIS REFLEX (05/23/2025 3:31 PM [...] EDT [facility] UA Nitrite Positive(A) Negative 05/23/2025 3:41 PM EDT [facility] UA Leuk Est 4+ (500 Ion/mcl)(A) Negative 05/23/2025 3:41 PM EDT [facility] UA Spec Grav 1.018 1.001 - 1.035 no units 05/23/2025 3:41 PM EDT [facility] Comment:Reference range helga d for random specimens only. UA WBC >182(H) 0 - 4 /HPF 05/23/2025 3:41 PM EDT [facility] UA RBC 22(H) 0 - 3 /HPF 05/23/2025 3:41 PM EDT [facility] UA Mucus Trace /LPF 05/23/2025 3:41 PM EDT [facility] UA Bacteria Trace(A) Negative /HPF 05/23/2025 3:41 PM EDT [facility] Urine STRUCTURE OF URINARY TRACT PROPER / Unknown 05/23/2025 3:31 PM EDT 05/23/2025 3:36 PM EDT us Stephen Pickard MD URINE ORDERABLES Final Resul t [facility] [address] [facility] , [place] [address] * RED BLOOD CELLS REQUEST (05/23/2025 10:33 AM EDT) Product Code [id number] [facility] Unit Number [id number] [facility]OD [facility] Crossmatch Interp Compatible [facility] Dispense Status RETURNED [facility] Blood [facility]piration Date [facility] ISBT 128 Type 3020 [facility] Blood Unit Volume 300 ml [facility] BA CODING SYSTEM [id number] [facility]LO[facility] Blood Type (Unit) A POS [facility] Blood 05/23/2025 10:3 3 AM EDT 05/23/2025 10:37 AM EDT us Luis Manuel Mays MD BLOOD PRODUCT ORDERS Final Re sult [facility] [place] [address] * RED BLOOD CELLS REQUEST (05/23/2025 10:33 AM EDT) Product Code [id number] [facility] Unit Number [id number] [facility] BLOOD BANK Crossmatch Interp Compatible [facility]OD [facility] Dispense Status TRANSFUSED [facility]LOOD [facility] Blood Expiration Date [id number] [facility]LOOD BANK ISBT 128 Type 6200 [facility] BLOOD BANK Blood Unit Volume 300 ml [facility]OD [facility] BA CODING SYSTEM [id number] [facility]OD BANK Blood Type (Unit) A POS [facility] Blood 05/23/2025 10:3 3 AM EDT 05/23/2025 10:37 AM EDT us Lawrence Wolf MD BLOOD PRODUCT ORDERS Final Result [facility]LOOD [facility] [address] [place] [address] * RED BLOOD CELLS REQUEST (05/23/2025 10:33 AM EDT) Product Code [id number] [facility] Unit Number [id number] [facility] BLOOD BANK Crossmatch Interp Compatible [facility] BLOOD BANK Dispense Status TRANSFUSED [facility]LOOD [facility] Blood Expiration Date [id number] [facility] BLOOD BANK ISBT 128 Type 6200 [facility] BLOOD BANK Blood Unit Volume 300 ml [facility] BLOOD BANK BA CODING SYSTEM [id number] [facility] BLOOD BANK Blood Type (Unit) A POS [facility]LOOD BANK Blood 05/23/2025 10:3 3 AM EDT 05/23/2025 10:37 AM EDT Lawrence Wolf MD BLOOD PRODUCT ORDERS Final Result Performing Organization Address [facility]/ZIP Co de Phone Number [facility] [place] [address] * BB HISTORY CHECK (05/23/2025 10:33 AM EDT) BB HISTORY CHECK (1) Previous History OK 05/23/2025 10:52 AM EDT [facility]OD BANK Blood VENOUS BLOOD / Unknown Venipuncture / Unknown 05/23/2025 10:33 AM EDT 05/23/2025 10:37 AM EDT Sheryl Horton RADIOLOGY RN BLOOD BANK ORDERABLES Final Re sult Performing Organization Address [facility] [place] [address] * ANTIBODY SCREEN IGG (05/23/2025 10:33 AM EDT) ABSC IgG Int Negative 05/23/2025 11:27 AM EDT [facility] BLOOD [facility] Blood VENOUS BLOOD / Unknown Venipuncture / Unknown 05/23/2025 10:33 AM EDT 05/23/2025 10:37 AM EDT Sheryl Horton RADIOLOGY RN BLOOD BANK ORDERABLES Final Re sult Performing Organization Address City/[facility] Co de Phone Number [facility] BLOOD [address] [address] * ABORH (05/23/2025 10:33 AM EDT) ABORH Int A POS 05/23/2025 10:59 AM EDT [facility] BLOOD BANK Blood VENOUS BLOOD / Unknown Venipuncture / Unknown 05/23/2025 10:33 AM EDT 05/23/2025 10:37 AM EDT Sheryl Horton APRN BLOOD BANK ORDERABLES Final Re sult [facility]LOOD BANK [address] [place] [address] * ECG AND WAVEFORMS - TELEMETRY (05/23/2025 7:30 AM EDT) [facility] ECG INTERPRET Atrial Fib [facility] 05/23/2025 7:30 AM EDT Narrative [facility] - 05/23/2025 7:52 AM EDT (DT)ROUTINE QRS 0.09 See Clinical Report link for waveform capture Unknown Provider POINT OF CARE CARDIOLOGY Final Result Performing Organization Address City/[facility]/ZIP Co de Phone Number [facility] [address] [place], [place] [id number] * (ABNORMAL) CBC (05/23/2025 7:03 AM EDT) [facility] WBC 2.9(L) 3.7 - 10.3 x10(3)/mcL 05/23/2025 [...] 7:37 AM EDT [facility] MCHC 32.8 30.7 - 35.5 g/dL 05/23/2025 7:37 AM EDT [facility] RDW 15.8(H) <=14.9 % 05/23/2025 7:37 AM EDT [facility] Platelet 79(L) 155 - 369 x10(3)/mcL 05/23/2025 7:37 AM EDT [facility] MPV 12.3 8.8 - 12.5 fL 05/23/2025 7:37 AM EDT [facility] Blood VENOUS BLOOD / Unknown Venipuncture / Unknown 05/23/2025 7:03 AM EDT 05/23/2025 7:27 AM EDT us Carlos Manuel Landaverde II, MD HEMATOLOGY ORDERABLES Fin al Result Performing Organization Address City/[facility] Co de Phone Number [facility] [address] [facility], [place] [address] * ECG AND WAVEFORMS - TELEMETRY (05/22/2025 7:59 PM EDT) ECG INTERPRET Atrial Flutter [facility] Comment:with PVCs 05/22/2025 7:59 PM EDT Narrative [facility] - 05/22/2025 8:15 PM EDT PVC, (AM) ROUTINE QRS 0.10 See Clinical Report link for waveform capture us Unknown Provider POINT OF CARE CARDIOLOGY Final Result Performing Organization Address [facility] de Phone Number [facility] [address] [place] [address] * ECG AND WAVEFORMS - TELEMETRY (05/22/2025 7:31 AM EDT) ECG INTERPRET Atrial Fib [facility] 05/22/2025 7:31 AM EDT Narrative [facility] - 05/22/2025 9:30 AM EDT (DT)ROUTINE QRS 0.08 See Clinical Report link for waveform capture us Unknown Provider POINT OF CARE CARDIOLOGY Final Result Performing Organization Address [facility] Co de Phone Number [facility] [address] [place] [address] * FIBRINOGEN (05/22/2025 6:42 AM EDT) Fibrinogen 241 196 - 444 mg/dL 05/22/2025 7:27 AM EDT [facility] [employer] Blood VENOUS BLOOD / Unknown Venipuncture / Unknown 05/22/2025 6:42 AM EDT 05/22/2025 6:58 AM EDT us Stephen Pickard MD HEMATOLOGY ORDERABLES Final Result Performing Organization Address [facility] de Phone Number [facility] [employer] [facility] [address] [facility] , [place] [address] * (ABNORMAL) PT / INR (05/22/2025 6:42 AM EDT) PT 15.7(H) 10.5 - 13.6 second(s) 05/22/2025 7:27 AM EDT [facility] INR 1.36(H) 0.91 - 1.18 (ratio) 05/22/2025 7:27 AM EDT [facility] Comment: Level of Therapy Indications Target INR Range Standard Dose Treatment and prophylaxis of venous 2.0 - 3.0 thrombosis, pulmonary embolism High Dose High risk patients with mechanical 2.5 - 3.5 heart valves Blood VENOUS BLOOD / Unknown Venipuncture / Unknown 05/22/2025 6:42 AM EDT 05/22/2025 6:58 AM EDT us Stephen Pickard MD HEMATOLOGY ORDERABLES Final Result Performing Organization Address City/[facility] Co de Phone Number [facility] [employer] [address] , [place] [address] * MAGNESIUM LEVEL (05/22/2025 6:42 AM EDT) Magnesium 1.9 1.6 - 2.4 mg/dL 05/22/2025 7:32 AM EDT [facility] [employer] Blood VENOUS BLOOD / Unknown Venipuncture / Unknown 05/22/2025 6:42 AM EDT 05/22/2025 6:58 AM EDT Carlos Manuel Landaverde II, MD CHEMISTRY ORDERABLES Mita l Result [facility] [address] [facility] , [place] [address] * (ABNORMAL) CBC (05/22/2025 6:42 AM EDT) WBC 3.1(L) 3.7 - 10.3 x10(3)/mcL 05/22/2025 [...] 7:13 AM EDT [facility] Blood VENOUS BLOOD / Unknown Venipuncture / Unknown 05/22/2025 6:42 AM EDT 05/22/2025 6:58 AM EDT Carlos Manuel Landaverde II, MD HEMATOLOGY ORDERABLES Fin al Result Performing Organization Address City/[facility]/ZIP Co de Phone Number [facility] [address] [facility] , [place] [address] * (ABNORMAL) BASIC METABOLIC PANEL (05/22/2025 6:42 AM EDT) Sodium 138 136 - 145 mmol/L 05/22/2025 7:32 AM EDT [facility] Potassium 4.1 3.5 - 5.0 mmol/L 05/22/2025 7:32 AM EDT [facility] Chloride 108(H) 98 - 107 mmol/L 05/22/2025 7:32 AM EDT [facility] Total CO2 23 22 - 29 mmol/L 05/22/2025 7:32 AM EDT [facility] Anion Gap 7 7 - 16 mmol/L 05/22/2025 7:32 AM EDT [facility] Calcium 8.4(L) 8.8 - 10.4 mg/dL 05/22/2025 7:32 AM EDT [facility] Glucose Lvl 111(H) 70 - 99 mg/dL 05/22/2025 7:32 AM EDT [facility] BUN 23 8 - 23 mg/dL 05/22/2025 7:32 AM EDT [facility] Creatinine 0.99 0.51 - 1.30 mg/dL 05/22/2025 7:32 AM EDT [facility] eGFR (CKD-EPIcr 2020) 56(L) >=60 mL/min/1.7 3 m2 05/22/2025 7:32 AM EDT [facility] Comment:Estimated GFR was ca lculated using the CKD-EPIcr (2020) equation refit without race. The equation is recommended by the [employer] - [place] [employer] Neph[employer] Task Force. Blood VENOUS BLOOD / Unknown Venipuncture / Unknown 05/22/2025 6:42 AM EDT 05/22/2025 6:58 AM EDT us Carlos Manuel Landaverde II, MD CHEMISTRY ORDERABLES Mita l Result [facility] [address], [place] [address] * ECG AND WAVEFORMS - TELEMETRY (05/21/2025 7:40 PM EDT) [facility] ECG INTERPRET Atrial Fib [facility] 05/21/2025 7:40 PM EDT Narrative [facility] - 05/21/2025 7:46 PM EDT w/PVCs ROUTINE/AJ QRS 0.10 QT 0.36 See Clinical Report link for waveform capture us Unknown Provider POINT OF CARE CARDIOLOGY Final Result [facility] [address] [place] [address] * (ABNORMAL) CBC WITH DIFF (05/21/2025 7:18 AM EDT) [facility] WBC 3.0(L) 3.7 - 10.3 x10(3)/mcL 05/21/2025 [...] 1:43 PM EDT [facility] MCHC 31.9 30.7 - 35.5 g/dL 05/21/2025 1:43 PM EDT [facility] RDW 16.0(H) <=14.9 % 05/21/2025 1:43 PM EDT [facility] Platelet 77(L) 155 - 369 x10(3)/mcL 05/21/2025 1:43 PM EDT [facility] MPV 12.7(H) 8.8 - 12.5 fL 05/21/2025 1:43 PM EDT [facility] Neut Percent 53.3 % 05/21/2025 1:43 PM EDT [facility], [facility] Comment:Neutrophils equals s egs plus bands Imm Gran% 0.3 % 05/21/2025 1:43 PM EDT [facility], [facility] Comment:Automated count of m etamyelocytes, myelocytes and promyelocytes. Lymph Percent 37.2 % 05/21/2025 1:43 PM EDT [facility] [employer] Percent 8.9 % 05/21/2025 1:43 PM EDT [facility] Eos Percent 0.0 % 05/21/2025 1:43 PM EDT [facility] Baso Percent 0.3 % 05/21/2025 1:43 PM EDT [facility], [facility] Neut # 1.6 1.6 - 6.1 x10(3)/[facility] 05/21/2025 1:43 PM EDT [facility], [facility] Comment:Neutrophils equals s egs plus bands IMMGRAN# 0.0 0.0 - 0.1 x10(3)/[facility] 05/21/2025 1:43 PM EDT [facility], [facility] Comment:Automated count of m etamyelocytes, myelocytes and promyelocytes. An absolute IG <0.1 is reported as 0.0. Lymph # 1.1(L) 1.2 - 3.9 x10(3)/[facility] 05/21/2025 1:43 PM EDT [facility] [place] # 0.3 0.3 - 0.9 x10(3)/mcL 05/21/2025 1:43 PM EDT [facility], [facility] Eos# 0.0 0.0 - 0.5 x10(3)/[facility] 05/21/2025 1:43 PM EDT [facility], [facility] Baso # 0.0 0.0 - 0.1 x10(3)/[facility] 05/21/2025 1:43 PM EDT [facility], [facility] Blood VENOUS BLOOD / Unknown Venipuncture / Unknown 05/21/2025 7:18 AM EDT 05/21/2025 7:22 AM EDT us Stephen Pickard MD HEMATOLOGY ORDERABLES Final Result Performing Organization Address [facility] Co de Phone Number [employer] [address] [facility], [place] [address] * PERIPHERAL SMEAR/PATH REVIEW (05/21/2025 7:18 AM [...] Sujata Benitez MD 05/22/2025 5:33 PM EDT [facility] Blood VENOUS BLOOD / Unknown Venipuncture / Unknown 05/21/2025 7:18 AM EDT 05/21/2025 7:22 AM EDT us Stephen Pickard MD HEMATOLOGY ORDERABLES Final Result Performing Organization Address [facility] Co de Phone Number [facility] [address] [place] [address] * (ABNORMAL) IRON+TIBC (05/21/2025 7:18 AM EDT) Iron 41 30 - 160 mcg/dL 05/21/2025 7:57 AM EDT [facility], [facility] Transferrin 182(L) 200 - 360 mg/dL 05/21/2025 7:57 AM EDT [facility] [employer], [facility] Transferrin Saturation 16(L) 20 - 50 % 05/21/2025 7:[address] [facility] TIBC 255 250 - 400 mcg/dL 05/21/2025 7:57 AM EDT [facility] Blood VENOUS BLOOD / Unknown Venipuncture / Unknown 05/21/2025 7:18 AM EDT 05/21/2025 7:22 AM EDT Carlos Manuel Landaverde II, MD CHEMISTRY ORDERABLES Mita l Result Performing Organization Address [facility] Co de Phone Number [address] , [place] [address] * VITAMIN B12/ FOLIC ACID (05/21/2025 7:18 AM EDT) Vitamin B12 806 232 - 1,245 pg/mL 05/21/2025 8:20 AM EDT [facility] Folate >16.00 >=4.80 ng/mL 05/21/2025 8:20 AM EDT [facility] Blood VENOUS BLOOD / Unknown Venipuncture / Unknown 05/21/2025 7:18 AM EDT 05/21/2025 7:22 AM EDT Narrative [facility] - 05/21/2025 8:20 AM EDT Ingestion of angie doses of biotin (>5 mg/day) taken within 8 hours of drawing blood sample can interfere with this immunoassay test. Carlos Manuel Landaverde II, MD CHEMISTRY ORDERABLES Mita l Result Performing Organization Address [facility] Co de Phone Number [address] , [place] [address] * MAGNESIUM LEVEL (05/21/2025 7:18 AM EDT) Magnesium 1.8 1.6 - 2.4 mg/dL 05/21/2025 7:57 AM EDT [facility] Blood VENOUS BLOOD / Unknown Venipuncture / Unknown 05/21/2025 7:18 AM EDT 05/21/2025 7:22 AM EDT Carlos Manuel Landaverde II, MD CHEMISTRY ORDERABLES Mita l Result [facility] [address] [facility] [address], [place] [address] * (ABNORMAL) CBC (05/21/2025 7:18 AM EDT) [...] 7:36 AM EDT [facility] Blood VENOUS BLOOD / Unknown Venipuncture / Unknown 05/21/2025 7:18 AM EDT 05/21/2025 7:22 AM EDT Carlos Manuel Landaverde II, MD HEMATOLOGY ORDERABLES Fin al Result Performing Organization Address City/[facility]/ZIP Co de Phone Number [facility] [address], [place] [address] * (ABNORMAL) BASIC METABOLIC PANEL (05/21/2025 7:18 AM EDT) Sodium 138 136 - 145 mmol/L 05/21/2025 7:57 AM EDT [facility] Potassium 4.1 3.5 - 5.0 mmol/L 05/21/2025 7:57 AM EDT [facility] Chloride 107 98 - 107 mmol/L 05/21/2025 7:57 AM EDT [facility] Total CO2 20(L) 22 - 29 mmol/L 05/21/2025 7:57 AM EDT [facility] Anion Gap 11 7 - 16 mmol/L 05/21/2025 7:57 AM EDT [facility] Calcium 8.4(L) 8.8 - 10.4 mg/dL 05/21/2025 7:57 AM EDT [facility] Glucose Lvl 107(H) 70 - 99 mg/dL 05/21/2025 7:57 AM EDT [facility] BUN 22 8 - 23 mg/dL 05/21/2025 7:57 AM EDT [facility] Creatinine 0.94 0.51 - 1.30 mg/dL 05/21/2025 7:57 AM EDT [facility] eGFR (CKD-EPIcr 2020) 59(L) >=60 mL/min/1.7 3 m2 05/21/2025 7:57 AM EDT [facility] Comment:Estimated GFR was ca lculated using the CKD-EPIcr (2020) equation refit without race. The equation is recommended by the National Kid[employer] - [place] [employer] of Nephrology Task Force. Blood VENOUS BLOOD / Unknown Venipuncture / Unknown 05/21/2025 7:18 AM EDT 05/21/2025 7:22 AM EDT Carlos Manuel Landaverde II, MD CHEMISTRY ORDERABLES Mita l Result Performing Organization Address City/State/[facility] Co de Phone Number [facility] [employer] [address] [facility], [place] [address] * ECG AND WAVEFORMS - TELEMETRY (05/21/2025 7:00 AM EDT) ECG INTERPRET Atrial Fib [facility] 05/21/2025 7:00 AM EDT Narrative [facility] - 05/21/2025 8:43 AM EDT ROUTINE SDP QRS 0.08 QT 0.38 See Clinical Report link for waveform capture us Unknown Provider POINT OF CARE CARDIOLOGY Final Result Performing Organization Address [facility] Co de Phone Number [facility] [address] [place] [address] * ECG AND WAVEFORMS - TELEMETRY (05/20/2025 7:38 PM EDT) ECG INTERPRET Atrial Fib [facility] 05/20/2025 7:38 PM EDT Narrative [facility] - 05/20/2025 7:43 PM EDT w/PVCs ROUTINE/AJ IL 0.09 QT 0.35 See Clinical Report link for waveform capture us Unknown Provider POINT OF CARE CARDIOLOGY Final Result Performing Organization Address [facility] Co de Phone Number [facility] [address] [place] [address] * ECG AND WAVEFORMS - TELEMETRY (05/20/2025 7:00 AM EDT) ECG INTERPRET Atrial Fib [facility] 05/20/2025 7:00 AM EDT Narrative [facility] - 05/20/2025 10:01 AM EDT ROUTINE SDP QRS 0.08 QT 0.46 See Clinical Report link for waveform capture us Unknown Provider POINT OF CARE CARDIOLOGY Final Result Performing Organization Address [facility] Co de Phone Number [facility] [address] [place] [address] * MAGNESIUM LEVEL (05/20/2025 6:59 AM EDT) Magnesium 2.1 1.6 - 2.4 mg/dL 05/20/2025 7:56 AM EDT [facility] Blood VENOUS BLOOD / Unknown Venipuncture / Unknown 05/20/2025 6:59 AM EDT 05/20/2025 7:23 AM EDT Carlos Manuel Landaverde II, MD CHEMISTRY ORDERABLES Mita mills Result [facility] [address] [facility] , [place] [address] * (ABNORMAL) CBC (05/20/2025 6:59 AM EDT) Pathologist [facility] WBC 3.1(L) 3.7 - 10.3 x10(3)/mcL 05/20/2025 [...] 7:32 AM EDT [facility] Platelet 86(L) 155 - 369 x10(3)/mcL 05/20/2025 7:32 AM EDT [facility] MPV 12.6(H) 8.8 - 12.5 fL 05/20/2025 7:32 AM EDT [facility] Blood VENOUS BLOOD / Unknown Venipuncture / Unknown 05/20/2025 6:59 AM EDT 05/20/2025 7:23 AM EDT us Carlos Manuel Landaverde II, MD HEMATOLOGY ORDERABLES Fin al Result [facility] [address] [facility] , [place] [address] * (ABNORMAL) BASIC METABOLIC PANEL (05/20/2025 6:59 AM EDT) Sodium 137 136 - 145 mmol/L 05/20/2025 7:56 AM EDT [facility] Potassium 4.1 3.5 - 5.0 mmol/L 05/20/2025 7:56 AM EDT [facility] Chloride 106 98 - 107 mmol/L 05/20/2025 7:56 AM EDT [facility] Total CO2 19(L) 22 - 29 mmol/L 05/20/2025 7:56 AM EDT [facility] Anion Gap 12 7 - 16 mmol/L [...] - 1.30 mg/dL 05/20/2025 7:56 AM EDT [facility] eGFR (CKD-EPIcr 2020) 62 >=60 mL/min/1.7 3 m2 05/20/2025 7:56 AM EDT [facility] Comment:Estimated GFR was ca lculated using the CKD-EPIcr (2020) equation refit without race. The equation is recommended by the [employer] Kid[employer] - [place] [employer] of Nephrology Task Force. Blood VENOUS BLOOD / Unknown Venipuncture / Unknown 05/20/2025 6:59 AM EDT 05/20/2025 7:23 AM EDT us Carlos Manuel Landaverde II, MD CHEMISTRY ORDERABLES Mita l Result Performing Organization Address [facility] Co de Phone Number [facility] [employer], [facility] [address] [facility], [place] [address] * ECG AND WAVEFORMS - TELEMETRY (05/19/2025 8:00 PM EDT) ECG INTERPRET Atrial Fib [facility] 05/19/2025 8:00 PM EDT Narrative [facility] - 05/19/2025 8:45 PM EDT ROUTINE (MS) QRS 0.11 See Clinical Report link for waveform capture us Unknown Provider POINT OF CARE CARDIOLOGY Final Result Performing Organization Address [facility] de Phone Number [facility] [address] [place] [address] * ECG AND WAVEFORMS - TELEMETRY (05/19/2025 8:07 AM EDT) ECG INTERPRET Atrial Fib [facility] 05/19/2025 8:07 AM EDT Narrative [facility] - 05/19/2025 8:09 AM EDT ROUTINE//AC See Clinical Report link for waveform capture us Unknown Provider POINT OF CARE CARDIOLOGY Final Result Performing Organization Address [facility] de Phone Number [facility] [address] [place] [address] * XR ABDOMEN AP (05/19/2025 8:00 AM [...] 7:00 PM EDT) ECG INTERPRET Atrial Fib [facility] 05/18/2025 7:00 PM EDT Narrative [facility] - 05/18/2025 7:38 PM EDT PVC - ROUTINE QRS 0.11 See Clinical Report link for waveform capture us Unknown Provider POINT OF CARE CARDIOLOGY Final Result [facility] [address] [place] [address] * ECG AND WAVEFORMS - TELEMETRY (05/18/2025 7:04 AM EDT) ECG INTERPRET Atrial Fib [facility] 05/18/2025 7:04 AM EDT Narrative [facility] - 05/18/2025 7:58 AM EDT ROUTINE-BB See Clinical Report link for waveform capture us Unknown Provider POINT OF CARE CARDIOLOGY Final Result Performing Organization Address [facility]/ZIP Co de Phone Number [facility] [address] [place] [address] * EXTRA HUITRON URINE CX (05/18/2025 6:43 AM EDT) Urine URINARY BLADDER STRUCTURE / Unknown 05/18/2025 6:43 AM EDT 05/18/2025 6:51 AM EDT us Cara Diallo APRN MICROBIOLOGY - GENERAL ORDERABLES Final Result Performing Organization Address [facility] Co de Phone Number [facility] [address] [place] [address] * URINALYSIS REFLEX (05/18/2025 6:43 AM EDT) [...] Urobilinogen Normal <=1 mg/dL 6:54 AM EDT [facility] UA Bili Negative Negative 05/18/2025 6:54 AM EDT [facility] UA Nitrite Negative Negative 05/18/2025 6:54 AM EDT [facility] UA Leuk Est Negative Negative 05/18/2025 6:54 AM EDT [facility] UA Spec Grav 1.013 1.001 - 1.035 no units 05/18/2025 6:54 AM EDT [facility] Comment:Reference range helga d for random specimens only. Urine URINARY BLADDER STRUCTURE / Unknown 05/18/2025 6:43 AM EDT 05/18/2025 6:51 AM EDT Cara Diallo APRN URINE ORDERABLES Final Result Performing Organization Address [facility] de Phone Number [address] , [place] [phone] * MAGNESIUM LEVEL (05/18/2025 6:28 AM EDT) Pathologist [facility] Magnesium 2.1 1.6 - 2.4 mg/dL 05/18/2025 7:08 AM EDT [facility] Blood VENOUS BLOOD / Unknown Venipuncture / Unknown 05/18/2025 6:28 AM EDT 05/18/2025 6:37 AM EDT Carlos Manuel Landaverde II, MD CHEMISTRY ORDERABLES Mita l Result Performing Organization Address [facility] de Phone Number [facility], [address] , [place] [address] * (ABNORMAL) CBC (05/18/2025 6:28 AM EDT) WBC 4.8 3.7 - 10.3 x10(3)/mcL 05/18/2025 6:44 AM EDT [facility] RBC 2.31(L) 3.90 - 5.20 x10(6)/mcL 05/18/2025 6:44 AM EDT [facility] Hgb 8.7(L) 11.2 - 15.7 g/dL 05/18/2025 6:44 AM EDT [facility] Hct 26.4(L) 34.0 - 45.0 % 05/18/2025 6:44 AM EDT [facility] MCV 114.3(H) 80.0 - 100.0 fL 05/18/2025 6:44 AM EDT [facility] MCH 37.7(H) 26.0 - 34.0 pg 05/18/2025 6:44 AM EDT [facility] MCHC 33.0 30.7 - 35.5 g/dL 05/18/2025 6:44 AM EDT [facility] RDW 16.1(H) <=14.9 % 05/18/2025 6:44 AM EDT [facility] Platelet 97(L) 155 - 369 x10(3)/mcL 05/18/2025 6:44 AM EDT [facility] MPV 12.6(H) 8.8 - 12.5 fL 05/18/2025 6:44 AM EDT [facility] Blood VENOUS BLOOD / Unknown Venipuncture / Unknown 05/18/2025 6:28 AM EDT 05/18/2025 6:37 AM EDT Carlos Manuel Landaverde II, MD HEMATOLOGY ORDERABLES Fin al Result [facility] [address] [facility] , [place] [address] * (ABNORMAL) BASIC METABOLIC PANEL (05/18/2025 6:28 AM EDT) Sodium 136 136 - 145 mmol/L 05/18/2025 7:08 AM EDT [facility] Potassium 4.2 3.5 - 5.0 mmol/L 05/18/2025 7:08 AM EDT [facility] Chloride 106 98 - 107 mmol/L 05/18/2025 7:08 AM EDT [facility] Total CO2 19(L) 22 - 29 mmol/L 05/18/2025 7:08 AM EDT [facility] Anion Gap 11 7 - 16 mmol/L 05/18/2025 7:08 AM EDT [facility] Calcium 8.9 8.8 - 10.4 mg/dL 05/18/2025 7:08 AM EDT [facility] Glucose Lvl 131(H) 70 - 99 mg/dL 05/18/2025 7:08 AM EDT [facility] BUN 18 8 - 23 mg/dL 05/18/2025 7:08 AM EDT [facility] Creatinine 0.83 0.51 - 1.30 mg/dL 05/18/2025 7:08 AM EDT [facility] eGFR (CKD-EPIcr 2020) 69 >=60 mL/min/1.7 3 m2 05/18/2025 7:08 AM EDT [facility] Comment:Estimated GFR was ca lculated using the CKD-EPIcr (2020) equation refit without race. The equation is recommended by the [employer] - [place] [employer] Neph[employer] Task Force. Blood VENOUS BLOOD / Unknown Venipuncture / Unknown 05/18/2025 6:28 AM EDT 05/18/2025 6:37 AM EDT Carlos Manuel Landaverde II, MD CHEMISTRY ORDERABLES Mita l Result [facility], [place] [address] * ECG AND WAVEFORMS - TELEMETRY (05/17/2025 7:08 PM EDT) Pathologist [facility] ECG INTERPRET Atrial Fib [facility] 05/17/2025 7:08 PM EDT Narrative [facility] - 05/17/2025 7:18 PM EDT HC/ROUTINE QRS 0.11 See Clinical Report link for waveform capture us Unknown Provider POINT OF CARE CARDIOLOGY Final Result [facility] [address] [place] [address] * MAGNESIUM LEVEL (05/17/2025 1:29 PM EDT) Pathologist [facility] Magnesium 2.1 1.6 - 2.4 mg/dL 05/17/2025 2:32 PM EDT [facility] Blood VENOUS BLOOD / Unknown Venipuncture / Unknown 05/17/2025 1:29 PM EDT 05/17/2025 1:35 PM EDT us Carlos Manuel Landaverde II, MD CHEMISTRY ORDERABLES Imta lina Result [facility] [address] [facility] [address], [address] [place] [phone] * (ABNORMAL) CBC (05/17/2025 1:29 PM EDT) [...] ORDERABLES Fin al Result [facility] [address] [facility], [place] [address] * (ABNORMAL) BASIC METABOLIC PANEL (05/17/2025 1:29 PM EDT) Sodium 137 136 - 145 mmol/L 05/17/2025 2:32 PM EDT [facility] Potassium 4.1 3.5 - 5.0 mmol/L 05/17/2025 2:32 PM EDT [facility] Chloride 107 98 - 107 mmol/L 05/17/2025 2:32 PM EDT [facility] Total CO2 21(L) 22 - 29 mmol/L [...] recommended by the National Kid[employer] - [place] [employer] Nephrology Task Force. Blood VENOUS BLOOD / Unknown Venipuncture / Unknown 05/17/2025 1:29 PM EDT 05/17/2025 1:35 PM EDT Carlos Manuel Landaverde II, MD CHEMISTRY ORDERABLES Mita l Result Performing Organization Address City/[facility]/ZIP Co de Phone Number [facility] [address] [facility], [place] [address] * ECG AND WAVEFORMS - TELEMETRY (05/17/2025 7:31 AM EDT) ECG INTERPRET Atrial Fib [facility] 05/17/2025 7:31 AM EDT Narrative [facility] - 05/17/2025 8:33 AM EDT ROUTINE-BB See Clinical Report link for waveform capture us Unknown Provider POINT OF CARE CARDIOLOGY Final Result Performing Organization Address [facility] Co de Phone Number [facility] [address] [place] [address] * ECG AND WAVEFORMS - TELEMETRY (05/16/2025 10:49 PM EDT) ECG INTERPRET Atrial Fib [facility] 05/16/2025 10:4 9 PM EDT Narrative [facility] - 05/16/2025 11:00 PM EDT nEW ADMIT (MS) QRS 0.10 See Clinical Report link for waveform capture us Unknown Provider POINT OF CARE CARDIOLOGY Final Result Performing Organization Address [facility] de Phone Number [facility] 1 [place] [phone] * ECG AND WAVEFORMS - TELEMETRY (05/16/2025 7:26 AM EDT) ECG INTERPRET Atrial Fib [facility] 05/16/2025 7:26 AM EDT Narrative [facility] - 05/16/2025 7:27 AM EDT ROUTINE/PB QRS 0.09 See Clinical Report link for waveform capture us Unknown Provider POINT OF CARE CARDIOLOGY Final Result Performing Organization Address [facility] Co de Phone Number [facility] [address] [place] [address] * (ABNORMAL) CBC (05/16/2025 3:24 [...] 05/16/2025 3:46 AM EDT [facility] MCHC 32.3 30.7 - 35.5 g/dL 05/16/2025 3:46 AM EDT [facility] RDW 16.3(H) <=14.9 % 05/16/2025 3:46 AM [...] ORDERABLES Fin al Result [facility] [address] [facility] , [place] [address] * (ABNORMAL) BASIC METABOLIC PANEL (05/16/2025 3:24 AM EDT) Pathologist [facility] Sodium 136 136 - 145 mmol/L 05/16/2025 4:10 AM EDT [facility] Potassium 4.4 3.5 - 5.0 mmol/L 05/16/2025 4:10 AM EDT [facility] Chloride 105 98 - 107 mmol/L 05/16/2025 4:10 AM EDT [facility], [facility] Total CO2 22 22 - 29 mmol/L 05/16/2025 4:10 AM EDT [facility], [facility] Anion Gap 9 7 - 16 mmol/L 05/16/2025 4:10 AM EDT [facility], [facility] Calcium 8.5(L) 8.8 - 10.4 mg/dL 05/16/2025 4:10 AM EDT [facility] Glucose Lvl 126(H) 70 - 99 mg/dL 05/16/2025 4:10 AM EDT [facility], [facility] BUN 18 8 - 23 mg/dL 05/16/2025 4:10 AM EDT [facility], [facility] Creatinine 0.80 0.51 - 1.30 mg/dL 05/16/2025 4:10 AM EDT [facility], [facility] eGFR (CKD-EPIcr 2020) 72 >=60 mL/min/1.7 3 m2 05/16/2025 4:10 AM EDT [facility], [facility] Comment:Estimated GFR was ca lculated using the CKD-EPIcr (2020) equation refit without race. The equation is recommended by the National Kid[employer] - [place] [employer] Nephrology Task Force. Blood VENOUS BLOOD / Unknown Venipuncture / Unknown 05/16/2025 3:24 AM EDT 05/16/2025 3:36 AM EDT us Carlos Manuel Landaverde II, MD CHEMISTRY ORDERABLES Mita mills Result [facility] [address] [facility] , [address] [place] [phone] * MAGNESIUM LEVEL (05/16/2025 3:24 AM EDT) Magnesium 1.9 1.6 - 2.4 mg/dL 05/16/2025 4:10 AM EDT [facility], [facility] Blood VENOUS BLOOD / Unknown Venipuncture / Unknown 05/16/2025 3:24 AM EDT 05/16/2025 3:36 AM EDT us Carlos Manuel Landaverde II, MD CHEMISTRY ORDERABLES Mita l Result Performing Organization Address City/[facility]/ZIP Co de Phone Number [facility] [address] [facility], [place] [address] * ECG AND WAVEFORMS - TELEMETRY (05/15/2025 8:05 PM EDT) [facility] ECG INTERPRET Atrial Fib [facility] 05/15/2025 8:05 PM EDT Narrative [facility] - 05/15/2025 8:11 PM EDT ROUTINE (AM) QRS 0.11 QT 0.45 See Clinical Report link for waveform capture us Unknown Provider POINT OF CARE CARDIOLOGY Final Result Performing Organization Address [facility] Co de Phone Number [facility] 1 [place] [phone] * (ABNORMAL) CBC (05/15/2025 10:41 AM EDT) [facility] WBC 3.1(L) 3.7 - 10.3 x10(3)/mcL 05/15/2025 11:08 AM EDT [facility] RBC 2.23(L) 3.90 - 5.20 x10(6)/mcL 05/15/2025 11:08 AM EDT [facility] Hgb 8.3(L) 11.2 - 15.7 g/dL 05/15/2025 11:08 AM EDT [facility] Hct 25.6(L) 34.0 - 45.0 % 05/15/2025 11:08 AM EDT [facility] MCV 114.8(H) 80.0 - 100.0 fL 05/15/2025 11:08 AM EDT [facility] MCH 37.2(H) 26.0 - 34.0 pg 05/15/2025 11:08 AM EDT [facility] MCHC 32.4 30.7 - 35.5 g/dL 05/15/2025 11:08 AM EDT [facility] RDW 16.3(H) <=14.9 % 05/15/2025 11:08 AM EDT [facility] Platelet 76(L) 155 - 369 x10(3)/mcL 05/15/2025 11:08 AM EDT [facility] MPV 12.6(H) 8.8 - 12.5 fL 05/15/2025 11:08 AM EDT [facility] Blood VENOUS BLOOD / Unknown Venipuncture / Unknown 05/15/2025 10:41 AM EDT 05/15/2025 10:56 AM EDT Carlos Manuel Landaverde II, MD HEMATOLOGY ORDERABLES Fin al Result Performing Organization Address [facility] de Phone Number [facility], [address] , [place] [address] * MAGNESIUM LEVEL (05/15/2025 10:41 AM EDT) Magnesium 1.9 1.6 - 2.4 mg/dL 05/15/2025 11:30 AM EDT [facility] Blood VENOUS BLOOD / Unknown Venipuncture / Unknown 05/15/2025 10:41 AM EDT 05/15/2025 10:56 AM EDT Carlos Manuel Landaverde II, MD CHEMISTRY ORDERABLES Mita l Result Performing Organization Address [facility] Co de Phone Number [facility] , [place] [address] * (ABNORMAL) BASIC METABOLIC PANEL (05/15/2025 10:41 AM EDT) Sodium 138 136 - 145 mmol/L 05/15/2025 11:30 AM EDT [facility] Potassium 4.4 3.5 - 5.0 mmol/L 05/15/2025 11:30 AM EDT [facility] Chloride 107 98 - 107 mmol/L 05/15/2025 11:30 AM EDT [facility] Total CO2 22 22 - 29 mmol/L 05/15/2025 11:30 AM EDT [facility] Anion Gap 9 7 - 16 mmol/L 05/15/2025 11:30 AM EDT [facility], [facility] Calcium 8.7(L) 8.8 - 10.4 mg/dL 05/15/2025 11:30 AM EDT [facility], [facility] Glucose Lvl 116(H) 70 - 99 mg/dL 05/15/2025 11:30 AM EDT [facility], [facility] BUN 19 8 - 23 mg/dL 05/15/2025 11:30 AM EDT [facility], [facility] Creatinine 0.80 0.51 - 1.30 mg/dL 05/15/2025 11:30 AM EDT [facility], [facility] eGFR (CKD-EPIcr 2020) 72 >=60 mL/min/1.7 3 m2 05/15/2025 11:30 AM EDT [facility], [facility] Comment:Estimated GFR was ca lculated using the CKD-EPIcr (2020) equation refit without race. The equation is recommended by the National Kidney [employer] - [place] [employer] Nephrology Task Force. Blood VENOUS BLOOD / Unknown Venipuncture / Unknown 05/15/2025 10:41 AM EDT 05/15/2025 10:56 AM EDT us Carlos Manuel Landaverde II, MD CHEMISTRY ORDERABLES Mita l Result Performing Organization Address City/[facility]/ZIP Co de Phone Number [facility], [address], [place] [address] * ECG AND WAVEFORMS - TELEMETRY (05/15/2025 7:03 AM EDT) ECG INTERPRET Atrial Fib [facility] 05/15/2025 7:03 AM EDT Narrative [facility] - 05/15/2025 7:51 AM EDT ROUTINE-BB See Clinical Report link for waveform capture us Unknown Provider POINT OF CARE CARDIOLOGY Final Result Performing Organization Address [facility]/ZIP Co de Phone Number [facility] [address] [place] [address] * ECG AND WAVEFORMS - TELEMETRY (05/14/2025 8:40 PM EDT) ECG INTERPRET Atrial Fib [facility] 05/14/2025 8:40 PM EDT Narrative [facility] - 05/14/2025 8:45 PM EDT PVCS ROUTINE (AM) See Clinical Report link for waveform capture us Unknown Provider POINT OF CARE CARDIOLOGY Final Result Performing Organization Address City/[facility]/ZIP Co de Phone Number [facility] [address] [place] [address] * ECG AND WAVEFORMS - TELEMETRY (05/14/2025 7:46 AM EDT) ECG INTERPRET Atrial Fib [facility] 05/14/2025 7:46 AM EDT Narrative [facility] - 05/14/2025 7:47 AM EDT ROUTINE/PB QRS 0.09 See Clinical Report link for waveform capture us Unknown Provider POINT OF CARE CARDIOLOGY Final Result Performing Organization Address [facility] Co de Phone Number [facility] [address] [place] [address] * ECG AND WAVEFORMS - TELEMETRY (05/13/2025 8:30 PM EDT) ECG INTERPRET Atrial Fib [facility] 05/13/2025 8:30 PM EDT Narrative [facility] - 05/13/2025 8:37 PM EDT PVC . ROUTINE (AM) IL 0.19 QRS 0.11 RR 0.65 QT 0.37 QTc 0.46 See Clinical Report link for waveform capture us Unknown Provider POINT OF CARE CARDIOLOGY Final Result Performing Organization Address [facility]/ZIP Co de Phone Number [facility] [address] [place] [address] * ECG AND WAVEFORMS - TELEMETRY (05/13/2025 6:32 PM EDT) ECG INTERPRET Ventricular Tachycardia [facility] Comment:6 beats 05/13/2025 6:32 PM EDT Narrative [facility] - 05/13/2025 6:40 PM EDT 6 BTS NSVT/AK See Clinical Report link for waveform capture us Unknown Provider POINT OF CARE CARDIOLOGY Final Result Performing Organization Address [facility] de Phone Number [facility] [address] [place] [address] * ECG AND WAVEFORMS - TELEMETRY (05/13/2025 7:40 AM EDT) [facility] ECG INTERPRET Atrial Fib [facility] 05/13/2025 7:40 AM EDT Narrative [facility] - 05/13/2025 7:44 AM EDT ROUTINE/AK QRS 0.09 See Clinical Report link for waveform capture us Unknown Provider POINT OF CARE CARDIOLOGY Final Result Performing Organization Address [facility] de Phone Number [facility] [address] [place] [address] * ECG AND WAVEFORMS - TELEMETRY (05/12/2025 7:00 PM EDT) [facility] Signature ECG INTERPRET Atrial Fib [facility] 05/12/2025 7:00 PM EDT Narrative [facility] - 05/12/2025 7:46 PM EDT ROUTINE (MS) QRS 0.10 See Clinical Report link for waveform capture us Unknown Provider POINT OF CARE CARDIOLOGY Final Result Performing Organization Address [facility] de Phone Number [facility] [address] [place] [address] * GLUCOSE METER POC (05/12/2025 12:04 PM EDT) [facility] Glucose Meter POC 87 70 - 100 mg/dL 05/12/2025 12:05 PM EDT [facility] Sample Type Capillary 05/12/2025 12:05 PM EDT [facility] Patient Status Non-Critical Patient 05/12/2025 12:05 PM EDT [facility] Blood BLOOD SPECIMEN / Unknown 05/12/2025 12:04 PM EDT 05/12/2025 12:05 PM EDT Marcell Aguirre MD POINT OF CARE TEST ORDERABLES Final Result [facility] [address] [place] [address] * (ABNORMAL) GLUCOSE METER POC (05/12/2025 10:40 AM EDT) Glucose Meter POC 105(H) 70 - 100 mg/dL 05/12/2025 10:43 AM EDT [facility] Sample Type Capillary 05/12/2025 10:43 AM EDT [facility] Patient Status Non-Critical Patient 05/12/2025 10:43 AM EDT [facility] Blood BLOOD SPECIMEN / Unknown 05/12/2025 10:40 AM EDT 05/12/2025 10:43 AM EDT Marcell Aguirre MD POINT OF CARE TEST ORDERABLES Final Result Performing Organization Address City/[facility]/ZIP Co de Phone Number [facility] [address] [place] [address] * ECG AND WAVEFORMS - TELEMETRY (05/12/2025 7:30 AM EDT) ECG INTERPRET Atrial Fib [facility] 05/12/2025 7:30 AM EDT Narrative [facility] - 05/12/2025 7:59 AM EDT TRO/AM ROUTINE QRS 0.10 QT 0.39 See Clinical Report link for waveform capture us Unknown Provider POINT OF CARE CARDIOLOGY Final Result Performing Organization Address City/[facility]/ZIP Co de Phone Number [facility] [address] [place] [address] * ECG AND WAVEFORMS - TELEMETRY (05/11/2025 7:00 PM EDT) ECG INTERPRET Atrial Fib [facility] 05/11/2025 7:00 PM EDT Narrative [facility] - 05/11/2025 8:43 PM EDT QRS 0.09 See Clinical Report link for waveform capture us Unknown Provider POINT OF CARE CARDIOLOGY Final Result Performing Organization Address [facility]/ZIP Co de Phone Number [facility] [address] [place] [address] * ECG AND WAVEFORMS - TELEMETRY (05/11/2025 8:01 AM EDT) ECG INTERPRET Atrial Fib [facility] 05/11/2025 8:01 AM EDT Narrative [facility] - 05/11/2025 8:32 AM EDT TRO/AM ROUTINE- AFIB PVC QRS 0.11 QT 0.37 See Clinical Report link for waveform capture us Unknown Provider POINT OF CARE CARDIOLOGY Final Result Performing Organization Address [facility] Co de Phone Number [facility] [address] [place] [address] * ECG AND WAVEFORMS - TELEMETRY (05/10/2025 7:12 PM EDT) ECG INTERPRET Atrial Fib [facility] 05/10/2025 7:12 PM EDT Narrative [facility] - 05/10/2025 7:56 PM EDT ROUTINE QRS 0.12 See Clinical Report link for waveform capture us Unknown Provider POINT OF CARE CARDIOLOGY Final Result Performing Organization Address [facility] Co de Phone Number [facility] [address] [place] [address] * ECG AND WAVEFORMS - TELEMETRY (05/10/2025 5:30 PM EDT) ECG INTERPRET Atrial Fib [facility] 05/10/2025 5:30 PM EDT Narrative [facility] - 05/10/2025 5:34 PM EDT ADMIT (BS) QRS 0.09 See Clinical Report link for waveform capture us Unknown Provider POINT OF CARE CARDIOLOGY Final Result Performing Organization Address [facility] Co de Phone Number [facility] [address] [place] [address] * (ABNORMAL) GLUCOSE METER POC (05/10/2025 2:18 PM EDT) [facility] Glucose Meter POC 104(H) 70 - 100 mg/dL 05/10/2025 2:20 PM EDT [facility] Sample Type Capillary 05/10/2025 2:20 PM EDT [facility] Patient Status Non-Critical Patient 05/10/2025 2:20 PM EDT [facility] Blood BLOOD SPECIMEN / Unknown 05/10/2025 2:18 PM EDT 05/10/2025 2:20 PM EDT us Marcell Aguirre MD POINT OF CARE TEST ORDERABLES Final Result Performing Organization Address [facility] de Phone Number [facility] [address] [place] [address] * IR ULTRASOUND GUIDED VASCULAR ACCESS (05/10/2025 2:06 PM EDT) Anatomical Region Laterality Modality Interventional R adiology Narrative 05/19/2025 3:05 PM EDT DATE OF PROCEDURE: 05/10/2025 PREOPERATIVE DIAGNOSES: LLE critical limb ischemia, History of L TMA, PAD POSTOPERATIVE DIAGNOSES: Same PROCEDURE PERFORMED: 1. US guided access of the right common femoral artery 2. Abdominal aortogram. Selection of L SFA via R PARENT TRAINER (3rd order) with left lower extremity angiogram. Selection of PHARMACY DIRECTOR with additional angiogram. Radiographic supervision and [...] TPT and peroneal artery, reconstitution of proximal PHARMACY DIRECTOR with mid and distal PHARMACY DIRECTOR with multifocal severe stenosis of proximal and mid PHARMACY DIRECTOR but occluded distally without reconstitution. Significant [...] with severe stenosis, patent proximal and mid PHARMACY DIRECTOR with multifocal severe stenosis, patent peroneal artery Significant small vessel disease in L foot INDICATIONS: Skyler Bautista is a 84 y.o. female with PMHx significant for PAD s/p pelvic angiogram with bilateral NILAY stents s/p LLE angiogram with PHARMACY DIRECTOR of popliteal artery, TPT and peroneal [...] a hemostat. Under ultrasound guidance, the R PARENT TRAINER was accessed using a micropuncture needle. X-ray [...] and catheter were used to select the PHARMACY DIRECTOR to better evaluate if it reconstituted distally. After the PHARMACY DIRECTOR was selected, an angiogram was obtained, [...] procedure. SUMMARY: Significant small vessel disease. Occluded PHARMACY DIRECTOR and DAREN distally without reconstitution. RECOMMENDATIONS: Bed rest for 3 hours. Recommend proximal LLE amputation. Voice recognition technology was used to complete this note, and it may contain unintended errors despite the food writer's best efforts to proofread it. Please contact me with questions. TID: [id number] us Lawrence Wolf MD IMG IR ORDERABLES [...] aortogram. Selection of L SFA via R PARENT TRAINER (3rd order) with left lower extremity angiogram. Selection of PHARMACY DIRECTOR with additional angiogram. Radiographic supervision and [...] TPT and peroneal artery, reconstitution of proximal PHARMACY DIRECTOR with mid and distal PHARMACY DIRECTOR with multifocal severe stenosis of proximal and mid PHARMACY DIRECTOR but occluded distally without reconstitution. Significant [...] with severe stenosis, patent proximal and mid PHARMACY DIRECTOR with multifocal severe stenosis, patent peroneal artery Significant small vessel disease in L foot INDICATIONS: Skyler Bautista is a 84 y.o. female with PMHx significant for PAD s/p pelvic angiogram with bilateral NILAY stents s/p LLE angiogram with PHARMACY DIRECTOR of popliteal artery, TPT and peroneal [...] a hemostat. Under ultrasound guidance, the R PARENT TRAINER was accessed using a micropuncture needle. X-ray [...] and catheter were used to select the PHARMACY DIRECTOR to better evaluate if it reconstituted distally. After the PHARMACY DIRECTOR was selected, an angiogram was obtained, [...] procedure. SUMMARY: Significant small vessel disease. Occluded PHARMACY DIRECTOR and DAREN distally without reconstitution. RECOMMENDATIONS: Bed rest for 3 hours. Recommend proximal LLE amputation. Voice recognition technology was used to complete this note, and it may contain unintended errors despite the food writer's best efforts to proofread it. Please contact me with questions. TID: [id number] us Lawrence Wolf MD IMG IR ORDERABLES Final Res ult * ECG AND WAVEFORMS - TELEMETRY (05/10/2025 8:04 AM EDT) ECG INTERPRET Atrial Fib [facility] 05/10/2025 8:04 AM EDT Narrative [facility] - 05/10/2025 8:10 AM EDT EH - ROUTINE; PVCs QRS 0.12 See Clinical Report link for waveform capture us Unknown Provider POINT OF CARE CARDIOLOGY Final Result [facility] [address] [place] [address] * ECG AND WAVEFORMS - TELEMETRY (05/09/2025 7:03 PM EDT) ECG INTERPRET Atrial Fib [facility] 05/09/2025 7:03 PM EDT Narrative [facility] - 05/09/2025 8:25 PM EDT PVC- ROUTINE QRS 0.09 See Clinical Report link for waveform capture us Unknown Provider POINT OF CARE CARDIOLOGY Final Result Performing Organization Address [facility]/ZIP Co de Phone Number [facility] [address] [place] [address] * (ABNORMAL) GLUCOSE METER POC (05/09/2025 3:49 PM EDT) [facility] Signature Glucose Meter POC 134(H) 70 - 100 mg/dL 05/09/2025 3:50 PM EDT [facility] Sample Type Capillary 05/09/2025 3:50 PM EDT [facility] Patient Status Non-Critical Patient 05/09/2025 3:50 PM EDT [facility] Blood BLOOD SPECIMEN / Unknown 05/09/2025 3:49 PM EDT 05/09/2025 3:50 PM EDT us Marcell Aguirre MD POINT OF CARE TEST ORDERABLES Final Result Performing Organization Address [facility]/ZIP Co de Phone Number [facility] [address] [place] [address] * ECG AND WAVEFORMS - TELEMETRY (05/09/2025 12:37 PM EDT) ECG INTERPRET Atrial Fib [facility] 05/09/2025 12:3 7 PM EDT Narrative [facility] - 05/09/2025 12:40 PM EDT EH - NEW ADMIT; PVCs QRS 0.12 See Clinical Report link for waveform capture us Unknown Provider POINT OF CARE CARDIOLOGY Final Result Performing Organization Address City/[facility]/ZIP Co de Phone Number [facility] [address] [place] [address] * ECG AND WAVEFORMS - TELEMETRY (05/09/2025 7:34 AM EDT) ECG INTERPRET Atrial Fib [facility] 05/09/2025 7:34 AM EDT Narrative [facility] - 05/09/2025 7:58 AM EDT ROUTINE//AC See Clinical Report link for waveform capture us Unknown Provider POINT OF CARE CARDIOLOGY Final Result Performing Organization Address [facility] Co de Phone Number [facility] [address] [place] [address] * ECG AND WAVEFORMS - TELEMETRY (05/08/2025 7:01 PM EDT) ECG INTERPRET Atrial Fib [facility] 05/08/2025 7:01 PM EDT Narrative [facility] - 05/08/2025 7:49 PM EDT ROUTINE W/ PVCS (HM) QRS 0.09 See Clinical Report link for waveform capture us Unknown Provider POINT OF CARE CARDIOLOGY Final Result Performing Organization Address [facility] de Phone Number [facility] [address] [place] [address] * ECG AND WAVEFORMS - TELEMETRY (05/08/2025 7:20 AM EDT) ECG INTERPRET Atrial Fib [facility] 05/08/2025 7:20 AM EDT Narrative [facility] - 05/08/2025 7:22 AM EDT PVCS-ROUTINE/PB QRS 0.09 See Clinical Report link for waveform capture us Unknown Provider POINT OF CARE CARDIOLOGY Final Result Performing Organization Address [facility] de Phone Number [facility] [address] [place] [address] * (ABNORMAL) CBC (05/08/2025 5:24 AM EDT) WBC 3.9 3.7 - 10.3 x10(3)/mcL 05/08/2025 6:38 AM EDT [facility] RBC 1.99(L) 3.90 - 5.20 x10(6)/mcL 05/08/2025 6:38 AM EDT [facility] Hgb 7.4(L) 11.2 - 15.7 g/dL 05/08/2025 6:38 AM EDT [facility] Hct 22.6(L) 34.0 - 45.0 % 05/08/2025 6:38 AM EDT [facility] MCV 113.6(H) 80.0 - 100.0 fL 05/08/2025 6:38 AM EDT [facility] MCH 37.2(H) 26.0 - 34.0 pg 05/08/2025 6:38 AM EDT [facility] MCHC 32.7 30.7 - 35.5 g/dL 05/08/2025 6:38 AM EDT [facility] RDW 17.6(H) <=14.9 % 05/08/2025 6:38 AM EDT [facility] Platelet 60(L) 155 - 369 x10(3)/mcL 05/08/2025 6:38 AM EDT [facility] MPV 12.6(H) 8.8 - 12.5 fL 05/08/2025 6:38 AM EDT [facility] Blood VENOUS BLOOD / Unknown Venipuncture / Unknown 05/08/2025 5:24 AM EDT 05/08/2025 6:28 AM EDT us Geo Guallpa MD HEMATOLOGY ORDERABLES Final Resu lt [facility] [address] [facility] , [address] [place] [phone] * (ABNORMAL) BASIC METABOLIC PANEL (05/08/2025 5:24 AM EDT) Sodium 137 136 - 145 mmol/L 05/08/2025 6:59 AM EDT [facility] Potassium 4.2 3.5 - 5.0 mmol/L 05/08/2025 6:59 AM EDT [facility] Chloride 107 98 - 107 mmol/L 05/08/2025 6:59 AM EDT [facility] Total CO2 21(L) 22 - 29 mmol/L 05/08/2025 6:59 AM EDT [facility] Anion Gap 9 7 - 16 mmol/L 05/08/2025 6:59 AM EDT [facility] Calcium 8.6(L) 8.8 - 10.4 mg/dL 05/08/2025 6:59 AM EDT [facility] Glucose Lvl 116(H) 70 - 99 mg/dL 05/08/2025 6:59 AM EDT [facility] BUN 27(H) 8 - 23 mg/dL 05/08/2025 6:59 AM EDT [facility] Creatinine 0.78 0.51 - 1.30 mg/dL 05/08/2025 6:59 AM EDT [facility] eGFR (CKD-EPIcr 2020) 74 >=60 mL/min/1.7 3 m2 05/08/2025 6:59 AM EDT [facility] Comment:Estimated GFR was ca lculated using the CKD-EPIcr (2020) equation refit without race. The equation is recommended by the [employer] Kid[employer] - [place] [employer] Neph[employer] Task Force. Blood VENOUS BLOOD / Unknown Venipuncture / Unknown 05/08/2025 5:24 AM EDT 05/08/2025 6:28 AM EDT us Geo Guallpa MD CHEMISTRY ORDERABLES Final Resul t [facility], [address], [place] [address] * ECG AND WAVEFORMS - TELEMETRY (05/07/2025 10:27 PM EDT) ECG INTERPRET Atrial Fib [facility] 05/07/2025 10:2 7 PM EDT Narrative [facility] - 05/07/2025 10:29 PM EDT ROUTINE/JF QRS 0.10 See Clinical Report link for waveform capture us Unknown Provider POINT OF CARE CARDIOLOGY Final Result [facility] [address] [place] [id number] * (ABNORMAL) CBC (05/07/2025 7:33 AM EDT) [...] 05/07/2025 7:49 AM EDT [facility] RDW 17.2(H) <=14.9 % 05/07/2025 7:49 AM EDT [facility] Platelet 68(L) 155 - 369 x10(3)/mcL 05/07/2025 7:49 AM EDT [facility] MPV 12.2 8.8 - 12.5 fL 05/07/2025 7:49 AM EDT [facility] Blood VENOUS BLOOD / Unknown Venipuncture / Unknown 05/07/2025 7:33 AM EDT 05/07/2025 7:38 AM EDT us Geo Guallpa MD HEMATOLOGY ORDERABLES Final Resu lt [facility] [address] [facility] , [place] [address] * (ABNORMAL) BASIC METABOLIC PANEL (05/07/2025 7:33 AM EDT) Pathologist [facility] Sodium 135(L) 136 - 145 mmol/L 05/07/2025 8:11 AM EDT [facility] Potassium 4.2 3.5 - 5.0 mmol/L 05/07/2025 8:11 AM EDT [facility] Chloride 104 98 - 107 mmol/L 05/07/2025 8:11 AM EDT [facility] Total CO2 20(L) 22 - 29 mmol/L 05/07/2025 8:11 AM EDT [facility] Anion Gap 11 7 - 16 mmol/L 05/07/2025 8:11 AM EDT [facility] Calcium 9.0 8.8 - 10.4 mg/dL 05/07/2025 8:11 AM EDT [facility] Glucose Lvl 112(H) 70 - 99 mg/dL 05/07/2025 8:11 AM EDT [facility] BUN 24(H) 8 - 23 mg/dL 05/07/2025 8:11 AM EDT [facility] Creatinine 0.85 0.51 - 1.30 mg/dL 05/07/2025 8:11 AM EDT [facility] eGFR (CKD-EPIcr 2020) 67 >=60 mL/min/1.7 3 m2 05/07/2025 8:11 AM EDT [facility], [facility] Comment:Estimated GFR was ca lculated using the CKD-EPIcr (2020) equation refit without race. The equation is recommended by the National Kid[employer] - [place] [employer] of Nephrology Task Force. Blood VENOUS BLOOD / Unknown Venipuncture / Unknown 05/07/2025 7:33 AM EDT 05/07/2025 7:38 AM EDT us Geo Guallpa MD CHEMISTRY ORDERABLES Final Resul t [facility] [address] [facility] , [place] [address] * ECG AND WAVEFORMS - TELEMETRY (05/07/2025 7:03 AM EDT) ECG INTERPRET Atrial Fib [facility] 05/07/2025 7:03 AM EDT Narrative [facility] - 05/07/2025 8:32 AM EDT AM ROUTINE QRS 0.09 See Clinical Report link for waveform capture us Unknown Provider POINT OF CARE CARDIOLOGY Final Result Performing Organization Address [facility] Co de Phone Number [facility] [address] [place] [address] * ECG AND WAVEFORMS - TELEMETRY (05/06/2025 9:57 PM EDT) Pathologist [facility] ECG INTERPRET Atrial Fib [facility] 05/06/2025 9:57 PM EDT Narrative [facility] - 05/06/2025 9:59 PM EDT ROUTINE/JF QRS 0.08 See Clinical Report link for waveform capture us Unknown Provider POINT OF CARE CARDIOLOGY Final Result Performing Organization Address [facility] de Phone Number [facility] [address] [place] [address] * (ABNORMAL) GLUCOSE METER POC (05/06/2025 5:50 PM EDT) [facility] Glucose Meter POC 110(H) 70 - 100 mg/dL 05/06/2025 5:52 PM EDT [facility] Sample Type Capillary 05/06/2025 5:52 PM EDT [facility] Patient Status Non-Critical Patient 05/06/2025 5:52 PM EDT [facility] Blood BLOOD SPECIMEN / Unknown 05/06/2025 5:50 PM EDT 05/06/2025 5:52 PM EDT us Marcell Aguirre MD POINT OF CARE TEST ORDERABLES Final Result Performing Organization Address [facility] Co de Phone Number [facility] 1 [place], [place] [id number] * POTASSIUM REPEAT (05/06/2025 9:19 AM EDT) Potassium 4.8 3.5 - 5.0 mmol/L 05/06/2025 9:56 AM EDT [facility] Blood VENOUS BLOOD / Unknown Venipuncture / Unknown 05/06/2025 9:19 AM EDT 05/06/2025 9:23 AM EDT us Geo Guallpa MD CHEMISTRY ORDERABLES Final Resul t Performing Organization Address City/[facility]/ZIP Co de Phone Number [facility] [address] [facility], [place] [address] * ECG AND WAVEFORMS - TELEMETRY (05/06/2025 7:00 AM EDT) Pathologist [facility] ECG INTERPRET Atrial Fib [facility] 05/06/2025 7:00 AM EDT Narrative [facility] - 05/06/2025 8:28 AM EDT ECB - ROUTINE QRS 0.11 See Clinical Report link for waveform capture us Unknown Provider POINT OF CARE CARDIOLOGY Final Result Performing Organization Address [facility]/ZIP Co de Phone Number [facility] 1 [place] [phone] * (ABNORMAL) CBC (05/06/2025 5:59 AM EDT) [facility] WBC 4.5 3.7 - 10.3 x10(3)/mcL 05/06/2025 [...] 05/06/2025 7:53 AM EDT [facility] RDW 17.2(H) <=14.9 % 05/06/2025 7:53 AM EDT [facility] Platelet 64(L) 155 - 369 x10(3)/mcL 05/06/2025 7:53 AM EDT [facility] MPV 12.7(H) 8.8 - 12.5 fL 05/06/2025 7:53 AM EDT [facility] Blood VENOUS BLOOD / Unknown Venipuncture / Unknown 05/06/2025 5:59 AM EDT 05/06/2025 7:40 AM EDT us Geo Guallpa MD HEMATOLOGY ORDERABLES Final Resu lt [facility] [address] [facility] , [place] [address] * (ABNORMAL) BASIC METABOLIC PANEL (05/06/2025 5:59 [...] - 10.4 mg/dL 05/06/2025 8:15 AM EDT [facility] Glucose Lvl 103(H) 70 - 99 mg/dL 05/06/2025 8:15 AM EDT [facility] BUN 23 8 - 23 mg/dL 05/06/2025 8:15 AM EDT [facility] Creatinine 0.81 0.51 - 1.30 mg/dL 05/06/2025 8:15 AM EDT [employer] eGFR (CKD-EPIcr 2020) 71 >=60 mL/min/1.7 3 m2 05/06/2025 8:15 AM EDT [employer] Comment:Estimated GFR was ca lculated using the CKD-EPIcr (2020) equation refit without race. The equation is recommended by the National Kidney Foundation - [place] [employer] Nephrology Task Force. Blood VENOUS BLOOD / Unknown Venipuncture / Unknown 05/06/2025 5:59 AM EDT 05/06/2025 7:40 AM EDT us Geo Guallpa MD CHEMISTRY ORDERABLES Final Resul t [facility] [address] [place] [address], [place] [address] * ECG AND WAVEFORMS - TELEMETRY (05/05/2025 10:41 PM EDT) ECG INTERPRET Atrial Fib [facility] 05/05/2025 10:4 1 PM EDT Narrative [facility] - 05/05/2025 10:43 PM EDT ROUTINE/AH QRS 0.08 See Clinical Report link for waveform capture us Unknown Provider POINT OF CARE CARDIOLOGY Final Result [facility] [address] [place] [address] * (ABNORMAL) GLUCOSE METER POC (05/05/2025 11:10 AM EDT) Glucose Meter POC 132(H) 70 - 100 mg/dL 05/05/2025 11:12 AM EDT [facility] Sample Type Capillary 05/05/2025 11:12 AM EDT [facility] Patient Status Non-Critical Patient 05/05/2025 11:12 AM EDT [facility] Blood BLOOD SPECIMEN / Unknown 05/05/2025 11:10 AM EDT 05/05/2025 11:12 AM EDT us Marcell Aguirre MD POINT OF CARE TEST ORDERABLES Final Result Performing Organization Address City/[facility]/ZIP Co de Phone Number [address] [address] * (ABNORMAL) GLUCOSE METER POC (05/05/2025 8:16 AM EDT) Glucose Meter POC 105(H) 70 - 100 mg/dL 05/05/2025 8:17 AM EDT [facility] Sample Type Capillary 05/05/2025 8:17 AM EDT [facility] Patient Status Non-Critical Patient 05/05/2025 8:17 AM EDT [facility] Blood BLOOD SPECIMEN / Unknown 05/05/2025 8:16 AM EDT 05/05/2025 8:17 AM EDT us Marcell Aguirre MD POINT OF CARE TEST ORDERABLES Final Result Performing Organization Address [facility] Co de Phone Number [address] [phone] * ECG AND WAVEFORMS - TELEMETRY (05/05/2025 7:00 AM EDT) ECG INTERPRET Sinus Arrythmia [facility] 05/05/2025 7:00 AM EDT Narrative [facility] - 05/05/2025 8:47 AM EDT ROUTINE - KB QRS 0.09 See Clinical Report link for waveform capture us Unknown Provider POINT OF CARE CARDIOLOGY Final Result Performing Organization Address City/[facility] Co de Phone Number [facility] [address] [place] [address] * (ABNORMAL) GLUCOSE METER POC (05/04/2025 9:12 PM EDT) Glucose Meter POC 115(H) 70 - 100 mg/dL 05/04/2025 9:14 PM EDT [facility] Sample Type Capillary 05/04/2025 9:14 PM EDT [facility] Patient Status Non-Critical Patient 05/04/2025 9:14 PM EDT [facility] Blood BLOOD SPECIMEN / Unknown 05/04/2025 9:12 PM EDT 05/04/2025 9:14 PM EDT us Marcell Aguirre MD POINT OF CARE TEST ORDERABLES Final Result Performing Organization Address [facility]/ZIP Co de Phone Number [facility] [address] [place] [address] * ECG AND WAVEFORMS - TELEMETRY (05/04/2025 7:24 PM EDT) ECG INTERPRET Atrial Fib [facility] 05/04/2025 7:24 PM EDT Narrative [facility] - 05/04/2025 7:26 PM EDT PVC'S-ROUTINE /KD QRS 0.10 See Clinical Report link for waveform capture us Unknown Provider POINT OF CARE CARDIOLOGY Final Result Performing Organization Address [facility] Co de Phone Number [facility] [address] [place] [address] * ECG AND WAVEFORMS - TELEMETRY (05/04/2025 7:01 PM EDT) ECG INTERPRET Atrial Fib [facility] 05/04/2025 7:01 PM EDT Narrative [facility] - 05/04/2025 8:39 PM EDT ROUTINE (HM) QRS 0.10 See Clinical Report link for waveform capture us Unknown Provider POINT OF CARE CARDIOLOGY Final Result Performing Organization Address [facility] Co de Phone Number [facility] [address] [place] [address] * (ABNORMAL) GLUCOSE METER POC (05/04/2025 6:53 PM EDT) Glucose Meter POC 120(H) 70 - 100 mg/dL 05/04/2025 6:55 PM EDT [facility] Sample Type Capillary 05/04/2025 6:55 PM EDT [facility] Patient Status Non-Critical Patient 05/04/2025 6:55 PM EDT [facility] Blood BLOOD SPECIMEN / Unknown 05/04/2025 6:53 PM EDT 05/04/2025 6:55 PM EDT us Marcell Aguirre MD POINT OF CARE TEST ORDERABLES Final Result Performing Organization Address [facility] Co de Phone Number [place] [phone] * (ABNORMAL) GLUCOSE METER POC (05/04/2025 5:57 PM EDT) Glucose Meter POC 153(H) 70 - 100 mg/dL 05/04/2025 5:59 PM EDT [facility] Sample Type Capillary 05/04/2025 5:59 PM EDT [facility] Patient Status Non-Critical Patient 05/04/2025 5:59 PM EDT [facility] Blood BLOOD SPECIMEN / Unknown 05/04/2025 5:57 PM EDT 05/04/2025 5:59 PM EDT us Marcell Aguirre MD POINT OF CARE TEST ORDERABLES Final Result Performing Organization Address [facility] de Phone Number [address] [address] * (ABNORMAL) GLUCOSE METER POC (05/04/2025 2:55 PM EDT) Glucose Meter POC 116(H) 70 - 100 mg/dL 05/04/2025 2:56 PM EDT [facility] Sample Type Capillary 05/04/2025 2:56 PM EDT [facility] Patient Status Non-Critical Patient 05/04/2025 2:56 PM EDT [facility] Blood BLOOD SPECIMEN / Unknown 05/04/2025 2:55 PM EDT 05/04/2025 2:56 PM EDT us Marcell Aguirre MD POINT OF CARE TEST ORDERABLES Final Result Performing Organization Address [facility] Co de Phone Number [facility] [address] [place] [phone] * ECG AND WAVEFORMS - TELEMETRY (05/04/2025 7:00 AM EDT) ECG INTERPRET Atrial Fib [facility] 05/04/2025 7:00 AM EDT Narrative [facility] - 05/04/2025 8:47 AM EDT RS, ROUTINE, PACS, PVCS QRS 0.08 See Clinical Report link for waveform capture us Unknown Provider POINT OF CARE CARDIOLOGY Final Result Performing Organization Address [facility] Co de Phone Number [facility] [address] [place] [address] * (ABNORMAL) GLUCOSE METER POC (05/03/2025 9:54 PM EDT) [facility] Glucose Meter POC 175(H) 70 - 100 mg/dL 05/03/2025 9:55 PM EDT [facility] Sample Type Capillary 05/03/2025 9:55 PM EDT [facility] Patient Status Non-Critical Patient 05/03/2025 9:55 PM EDT [facility] Blood BLOOD SPECIMEN / Unknown 05/03/2025 9:54 PM EDT 05/03/2025 9:55 PM EDT us Marcell Aguirre MD POINT OF CARE TEST ORDERABLES Final Result Performing Organization Address [facility] Co de Phone Number [facility] [address] [place] [address] * ECG AND WAVEFORMS - TELEMETRY (05/03/2025 6:59 PM EDT) ECG INTERPRET Sinus Tachycardia [facility] 05/03/2025 6:59 PM EDT Narrative [facility] - 05/03/2025 8:20 PM EDT ROUTINE (CW) QRS 0.06 See Clinical Report link for waveform capture us Unknown Provider POINT OF CARE CARDIOLOGY Final Result Performing Organization Address [facility]/ZIP Co de Phone Number [facility] [address] [place] [address] * (ABNORMAL) GLUCOSE METER POC (05/03/2025 5:43 PM EDT) [facility] Glucose Meter POC 129(H) 70 - 100 mg/dL 05/03/2025 5:45 PM EDT [facility] Sample Type Capillary 05/03/2025 5:45 PM EDT [facility] Patient Status Non-Critical Patient 05/03/2025 5:45 PM EDT [facility] Blood BLOOD SPECIMEN / Unknown 05/03/2025 5:43 PM EDT 05/03/2025 5:45 PM EDT us Marcell Aguirre MD POINT OF CARE TEST ORDERABLES Final Result Performing Organization Address [facility] Co de Phone Number [facility] [address] [place] [address] * MRI FOOT LEFT WO CONTRAST (05/03/2025 [...] stump without an abscess. Jovanni Montesinos APRN IM MRI ORDERABLES Final Re sult * (ABNORMAL) GLUCOSE METER POC (05/03/2025 2:14 PM EDT) [facility] Glucose Meter POC 123(H) 70 - 100 mg/dL 05/03/2025 2:16 PM EDT [facility] Sample Type Capillary 05/03/2025 2:16 PM EDT [facility] Patient Status Non-Critical Patient 05/03/2025 2:16 PM EDT [facility] Blood BLOOD SPECIMEN / Unknown 05/03/2025 2:14 PM EDT 05/03/2025 2:16 PM EDT Marcell Aguirre MD POINT OF CARE TEST ORDERABLES Final Result Performing Organization Address City/[facility]/ZIP Co de Phone Number [facility] [address] [place] [address] * GLUCOSE METER POC (05/03/2025 10:20 AM EDT) [facility] Glucose Meter POC 100 70 - 100 mg/dL 05/03/2025 10:21 AM EDT [facility] Sample Type Capillary 05/03/2025 10:21 AM EDT [facility] Patient Status Non-Critical Patient 05/03/2025 10:21 AM EDT [facility] Blood BLOOD SPECIMEN / Unknown 05/03/2025 10:20 AM EDT 05/03/2025 10:21 AM EDT Marcell Aguirre MD POINT OF CARE TEST ORDERABLES Final Result Performing Organization Address [facility] Co de Phone Number [facility] [address] [place] [address] * ECG AND WAVEFORMS - TELEMETRY (05/03/2025 7:55 AM EDT) [facility] ECG INTERPRET Atrial Fib [facility] Comment:with PVCs 05/03/2025 7:55 AM EDT Narrative [facility] - 05/03/2025 8:07 AM EDT KW ROUTINE - PVCS QRS 0.09 See Clinical Report link for waveform capture us Unknown Provider POINT OF CARE CARDIOLOGY Final Result Performing Organization Address City/[facility]/ZIP Co de Phone Number [facility] [address] [place] [address] * HEMOGLOBIN A1C (05/03/2025 6:37 AM EDT) [facility] Hgb A1C 5.3 4.2 - 5.6 % 05/05/2025 3:53 PM EDT [facility] Est. Avg Glucose 105 mg/dL 05/05/2025 3:53 PM EDT [facility] Blood VENOUS BLOOD / Unknown Venipuncture / Unknown 05/03/2025 6:37 AM EDT 05/03/2025 7:14 AM EDT Narrative [facility], [facility] - 05/05/2025 3:53 PM EDT REFERENCE RANGE: Normal: 4.0-5.6% Pre-diabetes: 5.7-6.4% Provisional diagnosis of diabetes: >6.4% Hgb F>10% and anything which shortens red cell survival, such as hemolytic anemia, or unstable hemoglobin variants such as HbSS, HbSC, or HbCC, will lower the HbA1c value associated with a given level of glycemic control. us Geo Guallpa MD CHEMISTRY ORDERABLES Final Resul t [facility], [facility] [address] [facility] , [place] [address] * (ABNORMAL) CBC (05/03/2025 6:37 AM EDT) WBC 3.5(L) 3.7 - 10.3 x10(3)/mcL 05/03/2025 7:38 AM EDT [facility] RBC 2.19(L) 3.90 - 5.20 x10(6)/mcL 05/03/2025 7:38 AM EDT [facility] Hgb 8.0(L) 11.2 - 15.7 g/dL 05/03/2025 7:38 AM EDT [facility] Hct 25.0(L) 34.0 - 45.0 % 05/03/2025 7:38 AM EDT [facility] MCV 114.2(H) 80.0 - 100.0 fL 05/03/2025 7:38 AM EDT [facility] MCH 36.5(H) 26.0 - 34.0 pg 05/03/2025 7:38 AM EDT [facility] MCHC 32.0 30.7 - 35.5 g/dL 05/03/2025 7:38 AM EDT [facility] RDW 17.7(H) <=14.9 % 05/03/2025 7:38 AM EDT [facility] Platelet 68(L) 155 - 369 x10(3)/mcL 05/03/2025 7:38 AM EDT [facility] MPV 12.3 8.8 - 12.5 fL 05/03/2025 7:38 AM EDT [facility] Blood VENOUS BLOOD / Unknown Venipuncture / Unknown 05/03/2025 6:37 AM EDT 05/03/2025 7:14 AM EDT us Rajendra Cade (Alexandre) Malinda ESCOBEDO HEMATOLOGY NILAM BUTT Final Result [facility], [facility] [address] [facility] , [place] [address] * (ABNORMAL) BASIC METABOLIC PANEL (05/03/2025 6:37 [...] - 99 mg/dL 05/03/2025 8:00 AM EDT [facility] BUN 23 8 - 23 mg/dL 05/03/2025 8:00 AM EDT [facility] Creatinine 0.89 0.51 - 1.30 mg/dL 05/03/2025 8:00 AM EDT [facility] eGFR (CKD-EPIcr 2020) 63 >=60 mL/min/1.7 3 m2 05/03/2025 8:00 AM EDT [employer] Comment:Estimated GFR was ca lculated using the CKD-EPIcr (2020) equation refit without race. The equation is recommended by the National Kid[employer] - [place] [employer] Nephrology Task Force. Blood VENOUS BLOOD / Unknown Venipuncture / Unknown 05/03/2025 6:37 AM EDT 05/03/2025 7:14 AM EDT us Donnie Kaur MD CHEMISTRY ORDERABLES Final Result [employer] [address] [facility], [place] [address] * ECG AND WAVEFORMS - TELEMETRY (05/02/2025 11:00 PM EDT) ECG INTERPRET Atrial Fib [facility] 05/02/2025 11:0 0 PM EDT Narrative [facility] - 05/02/2025 11:23 PM EDT NEW ADMIT (MS) QRS 0.16 See Clinical Report link for waveform capture us Unknown Provider POINT OF CARE CARDIOLOGY Final Result Performing Organization Address [facility] de Phone Number [facility] [address] [place] [address] * GLUCOSE METER POC (05/02/2025 9:27 PM EDT) Glucose Meter POC 97 70 - 100 mg/dL 05/02/2025 9:29 PM EDT [facility] Sample Type Capillary 05/02/2025 9:29 PM EDT [facility] Patient Status Non-Critical Patient 05/02/2025 9:29 PM EDT [facility] Blood BLOOD SPECIMEN / Unknown 05/02/2025 9:27 PM EDT 05/02/2025 9:29 PM EDT us Marcell Aguirre MD POINT OF CARE TEST ORDERABLES Final Result Performing Organization Address [facility] Co de Phone Number [facility] [address] [place] [address] * (ABNORMAL) GLUCOSE METER POC (05/02/2025 5:04 PM EDT) Glucose Meter POC 172(H) 70 - 100 mg/dL 05/02/2025 5:05 PM EDT [facility] Sample Type Capillary 05/02/2025 5:05 PM EDT [facility] Patient Status Non-Critical Patient 05/02/2025 5:05 PM EDT [facility] Blood BLOOD SPECIMEN / Unknown 05/02/2025 5:04 PM EDT 05/02/2025 5:05 PM EDT Marcell Aguirre MD POINT OF CARE TEST ORDERABLES Final Result [facility] [address] [place] [address] * (ABNORMAL) GLUCOSE METER POC (05/02/2025 1:03 PM EDT) Glucose Meter POC 110(H) 70 - 100 mg/dL 05/02/2025 1:04 PM EDT [facility] Sample Type Capillary 05/02/2025 1:04 PM EDT [facility] Patient Status Non-Critical Patient 05/02/2025 1:04 PM EDT [facility] Blood BLOOD SPECIMEN / Unknown 05/02/2025 1:03 PM EDT 05/02/2025 1:04 PM EDT us Marcell Aguirre MD POINT OF CARE TEST ORDERABLES Final Result [facility] [address] [place] [address] * [facility] [...] * (ABNORMAL) CBC (05/02/2025 8:31 AM EDT) [facility] WBC 3.8 3.7 - 10.3 x10(3)/mcL 05/02/2025 8:57 AM EDT [facility] RBC 2.23(L) 3.90 - 5.20 x10(6)/mcL 05/02/2025 [...] 05/02/2025 8:57 AM EDT [facility] RDW 17.5(H) <=14.9 % 05/02/2025 8:57 AM EDT [facility] Platelet 81(L) 155 - 369 x10(3)/mcL 05/02/2025 8:57 AM EDT [facility] MPV 12.6(H) 8.8 - 12.5 fL 05/02/2025 8:57 AM EDT [facility] Blood VENOUS BLOOD / Unknown Venipuncture / Unknown 05/02/2025 8:31 AM EDT 05/02/2025 8:36 AM EDT Rajendra Browning) Malinda ESCOBEDO HEMATOLOGY NILAM BUTT Final Result [facility] [address] [facility] , [place] [address] * (ABNORMAL) BASIC METABOLIC PANEL (05/02/2025 8:30 AM EDT) Sodium 137 136 - 145 mmol/L 05/02/2025 9:21 AM EDT [facility] Potassium 3.9 3.5 - 5.0 mmol/L 05/02/2025 9:21 AM EDT [facility] Chloride 104 98 - 107 mmol/L 05/02/2025 9:21 AM EDT [facility] Total CO2 23 22 - 29 mmol/L 05/02/2025 9:21 AM EDT [facility], [facility] Anion Gap 10 7 - 16 mmol/L 05/02/2025 9:21 AM EDT [facility], [facility] Calcium 8.3(L) 8.8 - 10.4 mg/dL 05/02/2025 9:21 AM EDT [facility], [facility] Glucose Lvl 111(H) 70 - 99 mg/dL 05/02/2025 9:21 AM EDT [facility], [facility] BUN 27(H) 8 - 23 mg/dL 05/02/2025 9:21 AM EDT [facility], [facility] Creatinine 0.96 0.51 - 1.30 mg/dL 05/02/2025 9:21 AM EDT [facility], [facility] eGFR (CKD-EPIcr 2020) 58(L) >=60 mL/min/1.7 3 m2 05/02/2025 9:21 AM EDT [facility] Comment:Estimated GFR was ca lculated using the CKD-EPIcr (2020) equation refit without race. The equation is recommended by the National Kidney Foundation - [place] [employer] of Nephrology Task Force. Blood VENOUS BLOOD / Unknown Venipuncture / Unknown 05/02/2025 8:30 AM EDT 05/02/2025 8:36 AM EDT us Donnie Kaur MD CHEMISTRY ORDERABLES Final Result [facility], [address] , [address] [place] [id number] * ECG AND WAVEFORMS - TELEMETRY (05/02/2025 8:06 AM EDT) ECG INTERPRET Atrial Fib [facility] Comment:Controlled 05/02/2025 8:06 AM EDT Narrative [facility] - 05/02/2025 8:10 AM EDT ROUTINE//AC See Clinical Report link for waveform capture us Unknown Provider POINT OF CARE CARDIOLOGY Final Result [facility] [address] [place] [address] * (ABNORMAL) GLUCOSE METER POC (05/01/2025 9:05 PM EDT) Glucose Meter POC 145(H) 70 - 100 mg/dL 05/01/2025 9:07 PM EDT [facility] Sample Type Capillary 05/01/2025 9:07 PM EDT [facility] Patient Status Non-Critical Patient 05/01/2025 9:07 PM EDT [facility] Blood BLOOD SPECIMEN / Unknown 05/01/2025 9:05 PM EDT 05/01/2025 9:07 PM EDT us Marcell Aguirre MD POINT OF CARE TEST ORDERABLES Final Result Performing Organization Address [facility] Co de Phone Number [facility] [address] [place] [address] * ECG AND WAVEFORMS - TELEMETRY (05/01/2025 7:56 PM EDT) ECG INTERPRET Atrial Fib [facility] 05/01/2025 7:56 PM EDT Narrative [facility] - 05/01/2025 7:57 PM EDT ROUTINE/MS QRS 0.09 See Clinical Report link for waveform capture us Unknown Provider POINT OF CARE CARDIOLOGY Final Result Performing Organization Address [facility]/ZIP Co de Phone Number [facility] [address] [place] [address] * (ABNORMAL) GLUCOSE METER POC (05/01/2025 4:53 PM EDT) Glucose Meter POC 188(H) 70 - 100 mg/dL 05/01/2025 4:55 PM EDT [facility] Sample Type Capillary 05/01/2025 4:55 PM EDT [facility] Patient Status Non-Critical Patient 05/01/2025 4:55 PM EDT [facility] Blood BLOOD SPECIMEN / Unknown 05/01/2025 4:53 PM EDT 05/01/2025 4:55 PM EDT us Marcell Aguirre MD POINT OF CARE TEST ORDERABLES Final Result [facility] [address] [place] [address] * GLUCOSE METER POC (05/01/2025 11:21 AM EDT) Glucose Meter POC 100 70 - 100 mg/dL 05/01/2025 11:22 AM EDT [facility] Sample Type Capillary 05/01/2025 11:22 AM EDT [facility] Patient Status Non-Critical Patient 05/01/2025 11:22 AM EDT [facility] Blood BLOOD SPECIMEN / Unknown 05/01/2025 11:21 AM EDT 05/01/2025 11:22 AM EDT us Marcell Aguirre MD POINT OF CARE TEST ORDERABLES Final Result Performing Organization Address [facility] Co de Phone Number [address] [address] * (ABNORMAL) GLUCOSE METER POC (05/01/2025 9:10 AM EDT) Glucose Meter POC 101(H) 70 - 100 mg/dL 05/01/2025 9:11 AM EDT [facility] Sample Type Capillary 05/01/2025 9:11 AM EDT [facility] Patient Status Non-Critical Patient 05/01/2025 9:11 AM EDT [facility] Blood BLOOD SPECIMEN / Unknown 05/01/2025 9:10 AM EDT 05/01/2025 9:11 AM EDT us Marcell Aguirre MD POINT OF CARE TEST ORDERABLES Final Result [address] [address] * (ABNORMAL) CBC (05/01/2025 7:57 AM EDT) Pathologist [facility] WBC 3.7 3.7 - 10.3 x10(3)/mcL 05/01/2025 [...] EDT 05/01/2025 8:01 AM EDT us Rajendra Petty MD (Ronny) HEMATOLOGY NILAM BUTT Final Result [facility] [address] [facility] , [place] [address] * ECG AND WAVEFORMS - TELEMETRY (05/01/2025 7:00 AM EDT) [facility] ECG INTERPRET Atrial Fib [facility] Comment:controlled 05/01/2025 7:00 AM EDT Narrative [facility] - 05/01/2025 9:27 AM EDT ROUTINE SDP QRS 0.08 QT 0.36 See Clinical Report link for waveform capture us Unknown Provider POINT OF CARE CARDIOLOGY Final Result [facility] [address] [place], [place] [id number] * (ABNORMAL) BASIC METABOLIC PANEL (05/01/2025 6:21 AM EDT) [facility] Sodium 136 136 - 145 mmol/L 05/01/2025 [...] - 1.30 mg/dL 05/01/2025 6:58 AM EDT [facility] eGFR (CKD-EPIcr 2020) 57(L) >=60 mL/min/1.7 3 m2 05/01/2025 6:58 AM EDT [facility] Comment:Estimated GFR was ca lculated using the CKD-EPIcr (2020) equation refit without race. The equation is recommended by the National Kidney [employer] - [place] [employer] of Nephrology Task Force. Blood VENOUS BLOOD / Unknown Venipuncture / Unknown 05/01/2025 6:21 AM EDT 05/01/2025 6:26 AM EDT us Donnie Kaur MD CHEMISTRY ORDERABLES Final Result Performing Organization Address [facility]/ZIP Co de Phone Number [facility] [employer], [facility] [address] [facility], [address] [place] [phone] * ECG AND WAVEFORMS - TELEMETRY (05/01/2025 5:12 AM EDT) ECG INTERPRET Atrial Fib [facility] 05/01/2025 5:12 AM EDT Narrative [facility] - 05/01/2025 5:13 AM EDT W/PVC'S/ROUTINE/JF QRS 0.11 See Clinical Report link for waveform capture us Unknown Provider POINT OF CARE CARDIOLOGY Final Result Performing Organization Address [facility] Co de Phone Number [facility] [address] [place] [address] * ECG AND WAVEFORMS - TELEMETRY (04/30/2025 11:29 PM EDT) [facility] Signature ECG INTERPRET Sinus Tachycardia [facility] 04/30/2025 11:2 9 PM EDT Narrative [facility] - 04/30/2025 11:31 PM EDT NEW ADMIT/JF IL 0.11 QRS 0.08 RR 0.47 QT 0.28 QTc 0.41 See Clinical Report link for waveform capture us Unknown Provider POINT OF CARE CARDIOLOGY Final Result Performing Organization Address [facility] Co de Phone Number [facility] [address] [place] [address] * (ABNORMAL) GLUCOSE METER POC (04/30/2025 10:09 PM EDT) Glucose Meter POC 117(H) 70 - 100 mg/dL 04/30/2025 10:11 PM EDT [facility] Sample Type Capillary 04/30/2025 10:11 PM EDT [facility] Patient Status Non-Critical Patient 04/30/2025 10:11 PM EDT [facility] Blood BLOOD SPECIMEN / Unknown 04/30/2025 10:09 PM EDT 04/30/2025 10:11 PM EDT Marcell Aguirre MD POINT OF CARE TEST ORDERABLES Final Result Performing Organization Address City/[facility]/[place] [address] * REPEAT LACTIC ACID (04/30/2025 7:30 PM EDT) Lactic Acid 1.3 0.5 - 1.9 mmol/L 04/30/2025 8:06 PM EDT [facility] Blood VENOUS BLOOD / Unknown Venipuncture / Unknown 04/30/2025 7:30 PM EDT 04/30/2025 7:57 PM EDT Donnie Kaur MD CHEMISTRY ORDERABLES Final Result Performing Organization Address [facility] [place] [address] * (ABNORMAL) BLOOD GAS, VENOUS (04/30/2025 5:56 PM EDT) pH Venous 7.39 7.32 - 7.42 pH 04/30/2025 6:05 PM EDT [facility] pCO2 Venous 45 41 - 51 mmHg 04/30/2025 6:05 PM EDT [facility] pO2 Venous <42(H) 25 - 40 mmHg 04/30/2025 6:05 PM EDT [facility] Comment:Interpret with cauti on. Not recommended to evaluate patient's oxygenation status. Base Excess Martín 1.4 mmol/L 6:05 PM EDT [facility] Hco3 Venous 26.3 24.0 - 28.0 mmol/L 04/30/2025 6:05 PM EDT [facility] CO2 Total Martín 24(L) 25 - 29 mmol/L 04/30/2025 6:05 PM EDT [facility], [facility] O2 Sat. Venous 20.2(L) 40.0 - 70.0 % 04/30/2025 6:05 PM EDT [facility], [facility] Inspired O2 RA 04/30/2025 6:05 PM EDT [facility], [facility] Blood VENOUS BLOOD / Unknown Venipuncture / Unknown 04/30/2025 5:56 PM EDT 04/30/2025 6:03 PM EDT Donnie Kaur MD CHEMISTRY ORDERABLES Final Result Performing Organization Address [facility] Co de Phone Number [address] , [place] [address] * BLOOD CULTURE (NO STAIN) (04/30/2025 5:56 PM EDT) Culture Result No Growth at 120 hours. BLOOD CULTURE (NO STAIN) 05/06/2025 7:00 AM EDT [facility], [facility] Blood VENOUS BLOOD / Unknown Venipuncture / Unknown 04/30/2025 5:56 PM EDT 04/30/2025 6:01 PM EDT Donnie Kaur MD MICROBIOLOGY - GENERA L ORDERABLES Final Result Performing Organization Address [facility] Co de Phone Number [facility] [address] , [place] [address] * BLOOD CULTURE (NO STAIN) (04/30/2025 5:56 PM EDT) Culture Result No Growth at 120 hours. BLOOD CULTURE (NO STAIN) 05/06/2025 7:00 AM EDT [facility], [facility] Blood VENOUS BLOOD / Unknown Venipuncture / Unknown 04/30/2025 5:56 PM EDT 04/30/2025 6:03 PM EDT Donnie Kaur MD MICROBIOLOGY - GENERA L ORDERABLES Final Result [facility] [employer], [facility] [address] [facility] , [place] [address] * XR FOOT LEFT AP LATERAL AND [...] contactthe office of the ordering clinician. us Donnie Kaur MD IMG DIAGNOSTIC IMAGIN G ORDERABLES Final Result * [...] of the ordering clinician. Donnie Kaur MD IMG DIAGNOSTIC IMAGIN G ORDERABLES Final Result * C-REACTIVE PROTEIN (04/30/2025 5:15 PM EDT) [facility] CRP <3.00 <=5.00 mg/L 04/30/2025 6:08 PM EDT [facility] Blood VENOUS BLOOD / Unknown Venipuncture / Unknown 04/30/2025 5:15 PM EDT 04/30/2025 5:29 PM EDT Donnie Kaur MD CHEMISTRY ORDERABLES Final Result [employer] [address] [facility], [place] [address] * SEDIMENTATION RATE AUTOMATED (04/30/2025 5:15 PM EDT) [facility] Sed Rate 9 0 - 30 mm/hr 04/30/2025 5:42 PM EDT [facility] Blood VENOUS BLOOD / Unknown Venipuncture / Unknown 04/30/2025 5:15 PM EDT 04/30/2025 5:29 PM EDT us Donnie Kaur MD HEMATOLOGY ORDERABLES Final Result Performing Organization Address City/[facility] Co de Phone Number [facility] [address] [place] [address] , [address] [place] [phone] * PROCALCITONIN (04/30/2025 5:15 PM EDT) Procalcitonin <0.05 <=0.49 ng/mL 04/30/2025 6:15 PM EDT [facility] Blood VENOUS BLOOD / Unknown Venipuncture / Unknown 04/30/2025 5:15 PM EDT 04/30/2025 5:29 PM EDT Narrative [facility] - 04/30/2025 6:15 PM EDT Procalcitonin <0.50 [...] CHEMISTRY ORDERABLES Final Result Performing Organization Address [facility] Co de Phone Number [employer] [address] [facility], [place] [address] * (ABNORMAL) LACTIC ACID (04/30/2025 5:15 PM EDT) [facility] Lactic Acid 2.3(H) 0.5 - 1.9 mmol/L 04/30/2025 5:39 PM EDT [facility] Blood VENOUS BLOOD / Unknown Venipuncture / Unknown 04/30/2025 5:15 PM EDT 04/30/2025 5:25 PM EDT us Donnie Kaur MD CHEMISTRY ORDERABLES Final Result [facility] 1 [place] [address] * (ABNORMAL) COMPREHENSIVE METABOLIC PANEL (04/30/2025 5:15 PM EDT) [facility] Sodium 136 136 - 145 mmol/L 04/30/2025 5:43 PM EDT [facility] Potassium 4.1 3.5 - 5.0 mmol/L 04/30/2025 5:43 PM EDT [facility] Chloride 101 98 - 107 mmol/L 04/30/2025 5:43 PM EDT [facility] Total CO2 21(L) 22 - 29 mmol/L 04/30/2025 5:43 PM EDT [facility] Anion Gap 14 7 - 16 mmol/L 04/30/2025 5:43 PM EDT [facility] Calcium 8.6(L) 8.8 - 10.4 mg/dL 04/30/2025 5:43 PM EDT [facility] Glucose Lvl 119(H) 70 - 99 mg/dL 04/30/2025 5:43 PM EDT [facility] BUN 36(H) 8 - 23 mg/dL 04/30/2025 5:43 PM EDT [facility] Creatinine 1.05 0.51 - 1.30 mg/dL 04/30/2025 5:43 PM EDT [facility] Albumin 3.9 3.2 - 4.6 gm/dL 04/30/2025 5:43 PM EDT [facility] Total Protein 7.5 6.4 - 8.3 gm/dL 04/30/2025 5:43 PM EDT [facility] Bili Total 0.7 0.2 - 1.3 mg/dL 04/30/2025 5:43 PM EDT [facility] ALT 16 <=41 U/L 04/30/2025 5:43 PM EDT [facility] AST 18 <=40 U/L 04/30/2025 5:43 PM EDT [facility] Alk Phos 96 36 - 123 U/L 04/30/2025 5:43 PM EDT [facility] eGFR (CKD-EPIcr 2020) 52(L) >=60 mL/min/1.7 3 m2 04/30/2025 5:43 PM EDT [facility] Comment:Estimated GFR was ca lculated using the CKD-EPIcr (2020) equation refit without race. The equation is recommended by the [employer] Kid[employer] - [place] [employer] of Nephrology Task Force. Blood VENOUS BLOOD / Unknown Venipuncture / Unknown 04/30/2025 5:15 PM EDT 04/30/2025 5:25 PM EDT us Donnie Kaur MD CHEMISTRY [place] [address] * (ABNORMAL) CBC WITH DIFF (04/30/2025 5:15 PM EDT) WBC 5.1 3.7 - 10.3 x10(3)/mcL 04/30/2025 5:29 PM EDT [facility] RBC 2.64(L) 3.90 - 5.20 x10(6)/mcL 04/30/2025 5:29 PM EDT [facility] Hgb 10.0(L) 11.2 - 15.7 g/dL 04/30/2025 5:29 PM EDT [facility] Hct 30.5(L) 34.0 - 45.0 % 04/30/2025 5:29 PM EDT [facility] MCV 115.5(H) 80.0 - 100.0 fL 04/30/2025 5:29 PM EDT [facility] MCH 37.9(H) 26.0 - 34.0 pg 04/30/2025 5:29 PM EDT [facility] MCHC 32.8 30.7 - 35.5 g/dL 04/30/2025 5:29 PM EDT [facility] RDW 17.6(H) <=14.9 % 04/30/2025 5:29 PM EDT [facility] Platelet 108(L) 155 - 369 x10(3)/mcL 04/30/2025 5:29 PM EDT [facility] MPV 12.3 8.8 - 12.5 fL 04/30/2025 5:29 PM EDT [facility] Neut Percent 56.9 % 04/30/2025 5:29 PM EDT [facility] Comment:Neutrophils equals s egs plus bands Imm Gran% 0.4 % 04/30/2025 5:29 PM EDT [facility] Comment:Automated count of m etamyelocytes, myelocytes and promyelocytes. Lymph Percent 33.9 % 04/30/2025 5:29 PM EDT [facility] [place] Percent 8.6 % 04/30/2025 5:29 PM EDT [facility] Eos Percent 0.0 % 04/30/2025 5:29 PM EDT [facility] Baso Percent 0.2 % 04/30/2025 5:29 PM EDT [facility] Neut # 2.9 1.6 - 6.1 x10(3)/mcL 04/30/2025 5:29 PM EDT [facility] Comment:Neutrophils equals s egs plus bands IMMGRAN# 0.0 0.0 - 0.1 x10(3)/mcL 04/30/2025 5:29 PM EDT [facility] Comment:Automated count of m etamyelocytes, myelocytes and promyelocytes. An absolute IG <0.1 is reported as 0.0. Lymph # 1.7 1.2 - 3.9 x10(3)/mcL 04/30/2025 5:29 PM EDT [facility] [place] # 0.4 0.3 - 0.9 x10(3)/[facility] 04/30/2025 5:29 PM EDT [facility] Eos# 0.0 0.0 - 0.5 x10(3)/[facility] 04/30/2025 5:29 PM EDT [facility] Baso # 0.0 0.0 - 0.1 x10(3)/[facility] 04/30/2025 5:29 PM EDT [facility] Blood VENOUS BLOOD / Unknown Venipuncture / Unknown 04/30/2025 5:15 PM EDT 04/30/2025 5:25 PM EDT us Donnie Kaur MD HEMATOLOGY [place] [address] * EK EKG 12 LEAD (04/30/2025 4:18 PM EDT) Anatomical Region Laterality Modality Electrocardiogra phy 04/30/2025 4:28 PM EDT Impressions 04/30/2025 10:[address] [facility] Test Date: 2025-04-30 Pat Name: SKYLER BAUTISTA Department: DEPID Room: 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 artery // Hx of CABG Coronary atherosclerosis of [place] coronary artery Type 2 diabetes mellitus, without [...] PRN, Starting on Tue04/30/25 at 2047, Until Tue05/26/25 at 1553, Pain, Fever, Maximum adult dose [...] For administration during pre-op peripheral block, Pre-op (Holding/SDS Meds) Given 05/24/2025 7:46 AM EDT 30 [...] 20 mg, Intravenous, ONCE, 1 dose, On Tue06/01/25 at 1730, Give IV push at 20 [...] PM EDT 0.5 mg HYDROmorphone 0.2 mg/mL SOLE TACKER syringe - 30 mL Intravenous, TITRATED, Starting on Tue05/28/25 at 0800, Until Tue05/28/25 at 1828, If no running IV refer to ACLIN-N- and place the KVO panel. This infusion requires the use of portless tubing and an IV pole lock box. Lock Code for Program Changes: 2468, Mode: SOLE TACKER + Continuous, Hydromorphone SOLE TACKER Dose (mg): 0.1, SOLE TACKER Lockout Time (minutes): 6, Hydromorphone 4 Hour Dose Limit (mg): 4, Hydromorphone Continuous (basal) Rate (mg/hr): 0.2 mg/hr New Bag 05/28/2025 10:23 AM EDT HYDROmorphone 0.2 mg/mL SOLE TACKER syringe - 30 mL Intravenous, TITRATED, Starting on Tue05/28/25 at 1830, Until Tue05/29/25 at 1123, If no running IV refer to ACLIN-N- and place the KVO panel. This infusion requires the use of portless tubing and an IV pole lock box. Lock Code for Program Changes: 2468, Mode: SOLE TACKER, Hydromorphone SOLE TACKER Dose (mg): 0.1, SOLE TACKER Lockout Time (minutes): 6, Hydromorphone 4 Hour [...] TIMES DAILY, 84 doses, First dose on Arlene 06/06/25 at 2100, Last dose on Arlene 07/18/25 at 0900, Application site: ana area Given 06/10/2025 9:05 AM EDT morphine injection 2 mg 2 mg, Intravenous, ONCE, 1 dose, On Tue04/30/25 at 2015 Given 04/30/2025 8:28 PM EDT 2 mg morphine injection 2 mg 2 mg, Intravenous, EVERY 4 HOURS PRN, Starting on Tue04/30/25 at 204, Until Arlene 05/16/25 at 0915, Pain Unrelieved by Oral Opioid [...] Until 06/08/25 at 1826, Pain, Breakthrough pain Given 06/08/2025 [...] on Tue06/07/25 at 1227, Until Tue06/10/25 at 2012, Pain Unrelieved by Oral Non-Opioid Therapy Given [...] on Tue05/15/25 at 1001, Until Tue06/10/25 at 2012, Constipation Given 05/17/2025 10:57 PM EDT 17 [...] Tue05/26/25 at 1751, Until Tue06/10/25 at 2012, Line Care, *Not to be used for [...] PRN, Starting on Tue04/30/25 at 1704, Until Tue05/02/25 at 1703, Line Care, Flush with 50 [...] 02/04/2025 06/10/2025 nalOXone (NARCAN) 4 mg/actuation Nasl Raymond, Non-Aerosol 0.1 mL by Nasal route as needed for Opioid Reversal. Raymond the contents of one device (0.1mL) into [...] RN) 0903 (Given - Provider: Marisa Garrett, MAHENDRA)1434 (Given - Provider: Marisa Garrett RN) atorvastatin (LIPITOR) tablet 40 mg 40 mg, Oral, NIGHTLY, First dose on Tue04/30/25 at 2300, Until Discontinued 2026 (Given - Provider: Binta Mcdowell, RN) 2036 (Given - Provider: Dylan Chowdhury, MAHENDRA) carvediloL (COREG) tablet 25 mg 25 mg, Oral, 2 TIMES DAILY WITH MEALS, First dose (after last modification) on Tue06/04/25 at 1800, Until Discontinued, Hold for SBP<100 or HR<60 Take with a meal. 09 (Given - Provider: Diony Valdez RN)182 (Given - Provider: Diony Valdez RN) 0932 (Given - Provider: Shannon Owens RN)174 (Given - Provider: Shannon Ownes RN) 09 (Given - Provider: Marisa Garrett, MAHENDRA) dorzolamide-timoloL (COSOPT) 22.3-6.8 mg/mL ophthalmic solution 1 Drop 1 Drop, Ophthalmic, 2 TIMES DAILY, First dose on Tue04/30/25 at 2300, Until Discontinued 905 (Given - Provider: Diony Valdez RN)2026 (Given - Provider: Binta Mcdowell RN) 0933 (Given - Provider: Shannon Owens RN)2037 (Given - Provider: Dylan Chowdhury, MAHENDRA) 09 (Given - Provider: Marisa Garrett, MAHENDRA) fUROsemide (LASix) tablet 40 mg 40 mg, Oral, DAILY, First dose on Tue06/05/25 at 1100, Until Discontinued 905 (Given - Provider: Diony Valdez RN) 0932 (Given - Provider: Shannon Owens RN) 0903 (Given - Provider: Marisa Garrett, MAHENDRA) gabapentin (NEURONTIN) capsule 300 mg 300 mg, Oral, 3 TIMES DAILY, First dose (after last modification) on Tue05/29/25 at 1400, Until Discontinued, Capsules may be opened and contents dissolved in water for administration 905 (Given - Provider: Diony Valdez RN)162 (Given - Provider: Arleth Joseph RN)2026 (Given - Provider: Binta Mcdowell RN) 0932 (Given - Provider: Shannon Owens RN)133 (Given - Provider: Shannon Owens RN)2036 (Given - Provider: Dylan Chowdhury RN) 09 (Given - Provider: Marisa Garrett, RN)143 (Given - Provider: Marisa Garrett RN) GLUCERNA Therapeutic oral supplement 1 'box' 1 'box', Oral, EVERY MORNING (NUTR), First dose (after last modification) on Tue05/15/25 at 0900, Until Discontinued, strawberry Administer orally. Do not administer if NPO or on clear liquid diet. Not for IV use. Supplied by [facility] 906 (Given - Provider: Diony Valdez RN) 09 (Given - Provider: Shannon Owens RN) 09 (Given - Provider: Marisa Garrett RN) latanoprost (XALATAN) 0.005 % ophthalmic solution 1 Drop 1 Drop, Ophthalmic, NIGHTLY, First dose (after last reorder) on Tue05/21/25 at 2100, Until Discontinued 2027 (Given - Provider: Binta Mcdowell RN) 2037 (Given - Provider: Dylan Chowdhury RN) lidocaine (ASPERCREME) 4 % patch 1 Patch 1 Patch, Transdermal, DAILY, First dose on Tue06/09/25 at 1245, Until Discontinued, Remove patch after 12 hours, Administer over 12 Hours, Application site: local 1133 (Patch Applied - Provider: Shannon Owens RN)2333 (Patch Removed - Provider: Dylan Chowdhury RN) 09 (Patch Applied - Provider: Marisa Garrett RN)1606 (Due: Patch Removed - Provider: Automatic Discharge Provider - Comment: Time automatically adjusted from order being discontinued) miconazole (MICATIN) 2 % powder Topical, 2 TIMES DAILY, 84 doses, First dose on Tue06/06/25 at 2100, Last dose on Tue07/18/25 at 0900, Application site: ana area 905 (Given - Provider: Diony Valdez RN)2032 (Given - Provider: Binta Mcdowell RN) 0932 (Given - Provider: Shannon Owens RN)2038 (Given - Provider: Dylan Chowdhury RN) 09 (Given - Provider: Marisa Garrett RN) nortriptyline (PAMELOR) capsule 10 mg 10 mg, Oral, NIGHTLY, First dose on Tue06/05/25 at 2100, Until Discontinued 2026 (Given - Provider: Binta Mcdowell, RN) 2035 (Given - Provider: Dylan Chowdhury, MAHENDRA) pantoprazole (PROTONIX) tablet 40 mg(Linked Group 1) 40 mg, Oral, 2 TIMES DAILY, First dose on Tue05/31/25 at 2100, Until Discontinued, Do not crush or chew 0906 (Given - Provider: Diony Valdez, RN)2026 (Given - Provider: Binta Mcdowell, RN) 0932 (Given - Provider: Shannon Owens, RN)2036 (Given - Provider: Dylan Chowdhury, MAHENDRA) 0903 (Given - Provider: Marisa Garrett, MAHENDRA) ranolazine (RANEXA) SR tablet 1,000 mg 1,000 mg, Oral, DAILY, First dose on Tue05/01/25 at 0900, Until Discontinued, Do Not Crush 0906 (Given - Provider: Diony Valdez RN) 0932 (Given - Provider: Shannon Owens, MAHENDRA) 0903 (Given - Provider: Marisa Garrett, MAHENDRA) PRN Medication Order 06/08/2025 06/09/2025 06/10/2025 acetaminophen (TYLENOL) suppository 650 mg(Linked Group 2) 650 mg, Rectal, EVERY 4 HOURS PRN, Starting on 05/26/25 at 1551, Until Tue06/10/25 at 2011, Pain, Fever, Temp greater than 102 F, Maximum adult dose of acetaminophen is 4000 mg from all sources in 24 hours. 0445 (See Alternative - Provider: Amna Ferris RN)1248 (See Alternative - Provider: Diony Valdez RN) acetaminophen (TYLENOL) tablet 650 mg(Linked Group 2) 650 mg, Oral, EVERY 4 HOURS PRN, Starting on 05/26/25 at 1551, Until Tue06/10/25 at 2011, Pain, Fever, Temp greater than 102 F, Maximum adult dose of acetaminophen is 4000 mg from all sources in 24 hours. 0445 (Given - Provider: Amna Ferris RN)1248 (Given - Provider: Diony Valdez RN) ALPRAZolam (XanAX) tablet 0.5 mg 0.5 mg, [...] Breakthrough Pain 0629 (Given - Provider: Binta Mcdowell RN)2048 (Given - Provider: Dylan Chowdhury RN) 0650 (Given - Provider: Dylan Chowdhury RN) oxyCODONE (ROXICODONE) immediate release tablet 10 mg (COMPLETED) 10 mg, Oral, ONCE PRN, 1 dose, Starting on 06/08/25 at 1754, Until 06/08/25 at 1826, Pain, Breakthrough pain 1826 (Given - Provider: Diony Valdez, MAHENDRA) oxyCODONE (ROXICODONE) immediate release tablet 5-10 mg 5-10 mg, Oral, EVERY 4 HOURS PRN, Starting on Tue06/07/25 at 1227, Until Tue06/10/25 at 2011, Pain Unrelieved by Oral Non-Opioid Therapy 0912 (Given - Provider: Sarah Nye, MAHENDRA)1627 (Given - Provider: Arleth Joseph RN) 0608 (Given - Provider: Binta Mcdowell, MAHENDRA)1131 (Given - Provider: Shannon Owens, MAHENDRA)1754 (Given - Provider: Shannon Owens, MAHENDRA) 0459 (Given - Provider: Dylan Chowdhury RN)0904 (Given - Provider: Marisa Garrett, MAHENDRA)1511 (Given - Provider: Marisa Garrett, MAHENDRA) polyethylene glycol (GLYCOLAX, MIRALAX) packet 17 g [...] injection 0-40 Units 1 05/26/2025 Insulin Calculator (PAPERBOARD BOX MAKER) - FSBS (Correction Only) Input 1 05/26/2025 [...] documented as of this encounter Care Teams Beaver Trapper Relationship Specialty Start Date End Date No Pcp, Per Patient PCP - General 06/04/24 documented as of this encounter
--- OUTSIDE RECORDS SUMMARY | 2025-06-12 20:28 | XMS_ITS | Encounter Summary ---
Author Organization [facility] [address] Care Team Providers Care First Aid Trainer Name Role Phone No Pcp, Per Patient Primary Care Provider Evelyne prabhakar Reason for Visit * Reason Comments Altered Mental Status Encounter Details Date Type Department Care Team (Late st Contact Info) Description 06/12/2025 8:28 PM EDT - 06/12/2025 11:17 PM EDT Emergency [facility] [address] [place] [address] Rhina Stephens, DO [address] [facility] [address] Acute UTI (Primary Dx) Discharge Disposition: Nursing Facility Social History Tobacco Use Types Packs/Day Years Used Date Smoking Tobacco: Former Cigarettes Q uit: 1991 Passive Smoke Exposure: Past Smokeless Tobacco: Never Alcohol Use Standard Drinks/Week Comments Not Currently 0 (1 standard drink = 0.6 oz pur e alcohol) [facility] Utilities Answer Date Recorded In the past 12 months has [employer], gas, oil, or water company threatened to shut off services in your home? No 05/01/2025 Overall Financial Resource Strain (CARDIA) Answe r Date Recorded How hard is it for you to pa y for the very basics like food, housing, medical care, and heating? Not hard at all 05/01/2025 PHQ-2 Answer Date Recorded PHQ-2 Total Score 0 05/01/2025 [facility] Occupat ional [facility] - Occupational Stress Questionnaire Answer Date Recorded [...] to get more. Never true 05/01/2025 [facility] IP Transportation Answer D ate [...] 8:25 PM EDT Barb Cason RN * Josephine Suicide Severity Rating Scale (Q shift for [...] * Urinary tract infection ??? Discharge instructions (Upper Sor[place]) documented in this encounter Medications at Time [...] Patch 06/11/2025 nalOXone (NARCAN) 4 mg/actuation Nasl [place], Non-Aerosol 0.1 mL by Nasal route as needed for Opioid Reversal. [place] the contents of one device (0.1mL) into [...] Departure Means Destination Comment s Nursing Facility [facility] [place] documented in this encounter ED Notes * Gricelda Fernandes, MAHENDRA - 06/12/2025 11:13 PM EDT An After Visit Summary was printed, and reviewed with family. AVS and printed rx given to the [facility] team. [facility] present to take patient back to [facility] [place]. * Renae Cason RN - 06/12/2025 10:57 PM EDT Report given to RN at [facility] * Rhina Stephens DO - 06/12/2025 8:22 PM EDT I, Gaye Bess, Medical Student, saw this patient with my attending, RHINA STEPHENS, and participated in the documentation in this [...] HISTORY Past Medical History: Diagnosis Date A-fib ([facility]) Arthritis Blood circulation, collateral CAD (coronary artery disease) Cardiac dysrhythmia Carotid artery occlusion CHF (congestive heart failure) ([facility]) Diabetes mellitus ([facility]) not currently on meds,rehab discontued Difficult intravenous access possible use of iv therapy/ultrasound to help with venous access. RIVERA (dyspnea on exertion) Encounter for blood transfusion Fatty liver Glaucoma Heartburn Hyperlipidemia Hypertension Liver disease Mixed hyperlipidemia Peripheral vascular disease Renal disorder Renal insufficiency Shortness of breath Sleep apnea pt has cpap, but is not using. Stroke ([facility]) pt's states around 3 years [...] true Transportation Needs: No Transportation Needs (05/01/2025) [facility] IP Transportation In the past 12 months, has lack of reliable transportation kept you from medical appointments, meetings, work or from getting things needed for daily living?: No Physical Activity: Inactive (05/01/2025) Exercise Vital Sign Days of Exercise per Week: 0 days Minutes of Exercise per Session: 0 min Stress: No Stress Concern Present (05/01/2025) [place] [facility]ational [facility] - Occupational Stress Questionnaire Feeling of Stress : Not at all Received from [facility] ([place], [place], [place], [place]) Family and Community Support Intimate Partner Violence: Not At Risk (08/06/2024) Received from [facility] Humiliation, Afraid, Rape, and Kick questionnaire Fear of Current or Ex-Partner: No Emotionally Abused: No Physically Abused: No Sexually Abused: No Housing Stability: Low Risk (08/06/2024) Received from [facility] Housing Stability Vital Sign Unable [...] IR REVAS FEM POP ART UNILAT W DIGITAL ACCOUNT COORDINATOR 01/30/2025 IR REVAS FEM POP ART UNILAT W DIGITAL ACCOUNT COORDINATOR 01/30/2025 Vargas Wolf MD EDG IR IR [...] hallux amputation; Surgeon: Dacia Mills DPM; Location: [facility] MAIN OR; Service: Podiatry CURRENT MEDICATIONS No [...] Rfl: 0 nalOXone (NARCAN) 4 mg/actuation Nasl [place], Non-Aerosol, 0.1 mL by Nasal route as needed for Opioid Reversal. [place] the contents of one device (0.1mL) into [...] 58.2 Imm Gran% 0.3 Lymph Percent 31.6 [place] Percent 9.6 Eos Percent 0.0 Baso Percent 0.3 Neut # 1.8 IMMGRAN# 0.0 Lymph # 1.0 (*) [place] # 0.3 Eos# 0.0 Baso # 0.0 [...] CULTURE. 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 UA and culture were ordered. UA demonstrated 4+ Leukocyte Esterase, >182 WBCs, 1+ Bacteria. Urine culture from 06/09 grew Klebsiella, E. coli and Proteus. Patient started on IV Rocephin for UTI. Patient is oriented and speaking with family members and medical team. She was informed of discharge plan and diagnosis of UTI. Patient discharged on Keflex and transported back to [facility]. Patient was educated on importance of maintaining bowel movements with immobility, history of recurrent UTIsand current pain medicine regimen. She is advised to continue polyethylene glycol (Miralax), senna and colase were added in ED (06/12/2025). ED Current Prescriptions Medication Dispense Auth. Provider cephALEXin (KEFLEX) 500 mg Oral Capsule 40 Capsule Rhina Stephens DO senna (SENOKOT) 8.6 mg Oral Tablet 14 Tablet Rhina Stephens DO I reviewed the patient's medical record. FINAL IMPRESSION 1. Acute UTI Condition at Disposition: Stable I was present with the medical student for the encounter. I personally verified the history of present illness and performed the physical examination and medical decision making. I have verified all of the medical student???s documentation for this encounter and made edits as necessary. Rhina Stephens DO 06/12/25 [id number] documented in this encounter Plan of Treatment Not on file documented as of this encounter Procedures Procedure [...] contactthe office of the ordering clinician. Rhina Stephens DO [facility] ORDERABLES Final Result * CT HEAD [...] contactthe office of the ordering clinician. Rhina Stephens DO IMG CT ORDERABLES Final Result * AMMONIA LEVEL (06/12/2025 9:22 PM EDT) [facility] Ammonia 15 11 - 51 mcmol/L 06/12/2025 9:50 PM EDT [facility] Blood VENOUS BLOOD / Unknown Venipuncture / Unknown 06/12/2025 9:22 PM EDT 06/12/2025 9:29 PM EDT Rhina Stephens DO CHEMISTRY ORDERABLES Final Res ult Performing Organization Address [facility] Co de Phone Number [facility] [address] [place] [address] * LACTIC ACID (06/12/2025 9:22 PM EDT) [facility] Lactic Acid 1.2 0.5 - 1.9 mmol/L 06/12/2025 9:50 PM EDT [facility] Blood VENOUS BLOOD / Unknown Venipuncture / Unknown 06/12/2025 9:22 PM EDT 06/12/2025 9:29 PM EDT Rhina Stephens DO CHEMISTRY ORDERABLES Final Res ult Performing Organization Address [facility] Co de Phone Number [facility] [address] [place], [place] [id number] * (ABNORMAL) BLOOD GAS, VENOUS (06/12/2025 9:22 PM EDT) [facility] pH Venous 7.38 7.32 - 7.42 pH 06/12/2025 9:33 PM EDT [facility] pCO2 Venous 40(L) 41 - 51 mmHg 06/12/2025 9:33 PM EDT [facility] pO2 Venous 42(H) 25 - 40 mmHg 06/12/2025 9:33 PM EDT [facility] Comment:Interpret with cauti on. Not recommended to evaluate patient's oxygenation status. Base Excess Martín -1.3 mmol/L 9:33 PM EDT [facility] Hco3 Venous 23.7(L) 24.0 - 28.0 mmol/L 06/12/2025 9:33 PM EDT [facility] CO2 Total Martín 23(L) 25 - 29 mmol/L 06/12/2025 9:33 PM EDT [facility] O2 Sat. Venous 73.9(H) 40.0 - 70.0 % 06/12/2025 9:33 PM EDT [facility] Inspired O2 RA 06/12/2025 9:33 PM EDT [facility] Blood VENOUS BLOOD / Unknown Venipuncture / Unknown 06/12/2025 9:22 PM EDT 06/12/2025 9:29 PM EDT us Rhina Stephens DO CHEMISTRY ORDERABLES Final Res ult Performing Organization Address City/State/[facility] Co de Phone Number [facility] [address] [phone] * (ABNORMAL) COMPREHENSIVE METABOLIC PANEL (06/12/2025 9:22 PM EDT) Pathologist [facility] Sodium 138 136 - 145 mmol/L 06/12/2025 9:50 PM EDT [facility] Potassium 4.2 3.5 - 5.0 mmol/L 06/12/2025 9:50 PM EDT [facility] Chloride 106 98 - 107 mmol/L 06/12/2025 9:50 PM EDT [facility] Total CO2 23 22 - 29 mmol/L 06/12/2025 9:50 PM EDT [facility] Anion Gap 9 7 - 16 mmol/L 06/12/2025 9:50 PM EDT [facility] Calcium 9.5 8.8 - 10.4 mg/dL 06/12/2025 9:50 PM EDT [facility] Glucose Lvl 126(H) 70 - 99 mg/dL 06/12/2025 9:50 PM EDT [facility] BUN 25(H) 8 - 23 mg/dL 06/12/2025 9:50 PM EDT [facility] Creatinine 0.95 0.51 - 1.30 mg/dL 06/12/2025 9:50 PM EDT [facility] Albumin 3.6 3.2 - 4.6 gm/dL 06/12/2025 9:50 PM EDT [facility] Total Protein 6.7 6.4 - 8.3 gm/dL 06/12/2025 9:50 PM EDT [facility] Bili Total 0.9 0.2 - 1.3 mg/dL 06/12/2025 9:50 PM EDT [facility] ALT 19 <=41 U/L 06/12/2025 9:50 PM EDT [facility] AST 34 <=40 U/L 06/12/2025 9:50 PM EDT [facility] Alk Phos 181(H) 36 - 123 U/L 06/12/2025 9:50 PM EDT [facility] eGFR (CKD-EPIcr 2020) 58(L) >=60 mL/min/1.7 3 m2 06/12/2025 9:50 PM EDT [facility] Comment:Estimated GFR was ca lculated using the CKD-EPIcr (2020) equation refit without race. The equation is recommended by the National Kidney Foundation - [place] [employer] of Nephrology Task Force. Blood VENOUS BLOOD / Unknown Venipuncture / Unknown 06/12/2025 9:22 PM EDT 06/12/2025 9:29 PM EDT us Rhina Stephens DO CHEMISTRY ORDERABLES Final Res ult [facility] [address] [place] [address] * (ABNORMAL) CBC WITH DIFF (06/12/2025 9:22 PM EDT) [facility] Signature WBC 3.1(L) 3.7 - 10.3 x10(3)/mcL 06/12/2025 9:32 PM EDT [facility] RBC 2.30(L) 3.90 - 5.20 x10(6)/mcL 06/12/2025 9:32 PM EDT [facility] Hgb 8.4(L) 11.2 - 15.7 g/dL 06/12/2025 9:32 PM EDT [facility] Hct 24.7(L) 34.0 - 45.0 % 06/12/2025 9:32 PM EDT [facility] MCV 107.4(H) 80.0 - 100.0 fL 06/12/2025 9:32 PM EDT [facility] MCH 36.5(H) 26.0 - 34.0 pg 06/12/2025 9:32 PM EDT [facility] MCHC 34.0 30.7 - 35.5 g/dL 06/12/2025 9:32 PM EDT [facility] RDW 19.9(H) <=14.9 % 06/12/2025 9:32 PM EDT [facility] Platelet 103(L) 155 - 369 x10(3)/mcL 06/12/2025 9:32 PM EDT [facility] MPV 12.9(H) 8.8 - 12.5 fL 06/12/2025 9:32 PM EDT [facility] Neut Percent 58.2 % 06/12/2025 9:32 PM EDT [facility] Comment:Neutrophils equals s egs plus bands Imm Gran% 0.3 % 06/12/2025 9:32 PM EDT [facility] Comment:Automated count of m etamyelocytes, myelocytes and promyelocytes. Lymph Percent 31.6 % 06/12/2025 9:32 PM EDT [facility] [place] Percent 9.6 % 06/12/2025 9:32 PM EDT [facility] Eos Percent 0.0 % 06/12/2025 9:32 PM EDT [facility] Baso Percent 0.3 % 06/12/2025 9:32 PM EDT [facility] Neut # 1.8 1.6 - 6.1 x10(3)/[facility] 06/12/2025 9:32 PM EDT [facility] Comment:Neutrophils equals s egs plus bands IMMGRAN# 0.0 0.0 - 0.1 x10(3)/[facility] 06/12/2025 9:32 PM EDT [facility] Comment:Automated count of m etamyelocytes, myelocytes and promyelocytes. An absolute IG <0.1 is reported as 0.0. Lymph # 1.0(L) 1.2 - 3.9 x10(3)/[facility] 06/12/2025 9:32 PM EDT [facility] [place] # 0.3 0.3 - 0.9 x10(3)/[facility] 06/12/2025 9:32 PM EDT [facility] Eos# 0.0 0.0 - 0.5 x10(3)/[facility] 06/12/2025 9:32 PM EDT [facility] Baso # 0.0 0.0 - 0.1 x10(3)/[facility] 06/12/2025 9:32 PM EDT [facility] Blood VENOUS BLOOD / Unknown Venipuncture / Unknown 06/12/2025 9:22 PM EDT 06/12/2025 9:29 PM EDT us Rhina Stephens DO HEMATOLOGY ORDERABLES Final Re sult [facility] [address] [place] [address] * (ABNORMAL) URINE CULTURE (NO STAIN) (06/12/2025 9:11 PM EDT) Culture Positive Growth(A) 06/15/2025 12:51 PM EDT [facility] Culture >100,000 CFU/mL Klebsiella pneumoniae SUSCEPTIB ILITY RESULT 06/15/2025 12:51 PM EDT [facility] Culture >100,000 CFU/mL Proteus mirabilis SUSCEPTIB ILITY RESULT 06/15/2025 12:51 PM EDT [facility], [facility] Comment: Confirmed positive [...] SUSCEPTIBILITY RESULT >2/38 ug/mL: Resistant us Rhina Stephens DO MICROBIOLOGY - GENERAL ORDERAB LES Final Result [facility] [address] [place] [address] , [place] [address] * EXTRA HUITRON URINE CX (06/12/2025 9:11 PM EDT) Urine STRUCTURE OF URINARY TRACT PROPER / Unknown 06/12/2025 9:11 PM EDT 06/12/2025 9:28 PM EDT us Rhina Stephens DO MICROBIOLOGY - GENERAL ORDERAB LES Final Result [facility] [address] [place] [address] * (ABNORMAL) URINALYSIS REFLEX (06/12/2025 9:11 PM EDT) UA Color Yellow 06/12/2025 9:37 PM EDT [facility] UA Appear Cloudy(A) Clear 06/12/2025 9:37 PM EDT [facility] UA Glucose Negative Negative mg/dL 06/12/2025 9:37 PM EDT [facility] UA Ketones Negative Negative mg/dL 06/12/2025 9:37 PM EDT [facility] UA Blood Negative Negative 06/12/2025 9:37 PM EDT [facility] UA pH 6.0 5.0 - 8.0 pH 06/12/2025 9:37 PM EDT [facility] UA Protein Trace (10-20 mg/dL) Negative mg/dL 06/12/2025 9:37 PM EDT [facility] UA Urobilinogen Normal <=1 mg/dL 9:37 PM EDT [facility] Bili Negative Negative 06/12/2025 9:37 PM EDT [facility] UA Nitrite Negative Negative 06/12/2025 9:37 PM EDT [facility] UA Leuk Est 4+ (500 Ion/mcl)(A) Negative 06/12/2025 9:37 PM EDT [facility] UA Spec Grav 1.015 1.001 - 1.035 no units 06/12/2025 9:37 PM EDT [facility] Comment:Reference range helga d for random specimens only. UA WBC >182(H) 0 - 4 /HPF 06/12/2025 9:37 PM EDT [facility] UA RBC 1 0 - 3 /HPF 06/12/2025 9:37 PM EDT [facility] UA Squam Epi 4+ /LPF 06/12/2025 9:37 PM EDT [facility] UA Bacteria 1+(A) Negative /HPF 06/12/2025 9:37 PM EDT [facility] UA Trans Epi <1(H) <=0 /HPF 06/12/2025 9:37 PM EDT [facility] Urine STRUCTURE OF URINARY TRACT PROPER / Unknown 06/12/2025 9:11 PM EDT 06/12/2025 9:28 PM EDT us Rhina Stephens DO URINE ORDERABLES Final Result [facility] [address] [id number] documented in this encounter Visit Diagnoses Diagnosis [...] 06/13/25 at 031, Line Care, Flush with 5 mL saline [...] 24 hours.* 2256 (Given - Provid er: Zacarias Ta RN) PRN Medication Order 06/10/2025 06/11/2025 [...] documented as of this encounter Care Teams First Aid Trainer Relationship Specialty Start Date End Date No Pcp, Per Patient PCP - General 06/04/24 documented as of this encounter
--- OUTSIDE RECORDS SUMMARY | 2025-06-23 13:13 | XMS_ITS | Encounter Summary ---
Author Organization [place] [address] Care Team Providers Care Molded Rubber Goods Cutter Name Role Phone No Pcp, Per Patient Primary Care Provider Evelyne prabhakar Reason for Visit * Reason Comments Atrial Fibrillation a fib rvr from [facility]. they report HR of 180, per squad HR 103. * Auth/Cert/Inpt (Routine) Specialty Diagnoses / Procedures Referred By Contac t Referred To Contact Diagnoses Atrial fibrillation with RVR (HCC) Paroxysmal atrial fibrillation (HCC) Referral ID Status Reason Start Date Expiration Date Visits Re quested Visits Authorized [id number] 1 1 Encounter Details Date Type Department Care Team (Latest Contact Info) Description 06/23/2025 1:13 PM EDT - 07/02/2025 10:57 AM EDT Hospital Encounter [facility] [address] [place] [address] Stephan Rodriguez MD [address] [place] [address] Duong Vitale MD [address] [place] [address] Atrial fibrillation with RVR (HCC) (Primary Dx); Acute pulmonary edema (HCC); Elevated troponin; Pleural effusion Discharge Disposition: Longterm Facility Social History Tobacco Use Types Packs/Day Years Used Date Smoking Tobacco: Former Cigarettes Q uit: 1991 Passive Smoke Exposure: Past Smokeless Tobacco: Never Alcohol Use Standard Drinks/Week Comments Not Currently 0 (1 standard drink = 0.6 oz pur e alcohol) [facility] Utilities Answer Date Recorded In [...] Date Recorded PHQ-2 Total Score 0 06/23/2025 [facility] - Occupational Stress [...] money to get more. Never true 06/23/2025 [facility] IP Transportation Answer D ate Recorded In [...] 1:16 PM EDT Emiliano Jimenez RN * [place] Suicide Severity Rating Scale (Q shift for [...] Horowitz MD - 07/02/2025 10:57 AM EDT [facility] Patient Name: Skyler Bautista : [...] 1 Patch, Transdermal, DAILY nalOXone 4 mg/actuation [place] Dose: 4 mg Qty: 1 Each Refills: 0 Commonly known as: NARCAN 4 mg, Nasal, PRN, Crane the contents of one device (0.1mL) into [...] Your Medications These medications were sent to [facility] [place] [address] [address] [facility] - [phone] [place] [id number] fUROsemide 40 mg Tab gabapentin 300 mg Cap levETIRAcetam 750 mg Tab losartan 25 mg Tab metoprolol 25 mg Tab oxyCODONE 5 mg Tab Condition at Discharge: stable Disposition: SNF Follow-up: [facility] [address] [facility] [address] [place] [address] Call FOLLOW UP IN 2 WEEKS TO DISCUSS CATHETER, SOON IF YOU WOULD LIKE IT REMOED SOONER. [facility] [address] [address] Jacob Horowitz MD 07/02/2025 Time spent: More [...] Heart failure in adults ??? Discharge instructions (British) * Losartan (British) * Levetiracetam (British) * Metoprolol (British) documented in this encounter Medications at Time [...] in both eyes at bedtime for glaucoma fUROsemide (LASIX) 40 mg Oral Tablet Take 1 Tablet by mouth daily for 30 days. 30 Tablet 06/29/2025 07/29/2025 latanoprost (XALATAN) 0.005 % Opht Drops Apply 1 Drop to eye nightly. 2.5 mL 06/10/2025 levETIRAcetam (KEPPRA) 750 mg Oral Tablet Take 1 Tablet by mouth 2 times daily for 30 days. 60 Tablet 06/28/2025 07/28/2025 lidocaine (ASPERCREME) 4 % Top Adhesive Patch, Medicated Place 1 Patch onto the skin daily. 15 Patch 06/11/2025 losartan (COZAAR) 25 mg Oral Tablet Take 1 Tablet by mouth daily for 30 days. 30 Tablet 06/29/2025 07/29/2025 metoprolol (LOPRESSOR) 25 mg Oral Tablet Take 1 Tablet by mouth 2 times daily for 30 days. 60 Tablet 06/28/2025 07/28/2025 nalOXone (NARCAN) 4 mg/actuation Nasl Crane, Non-Aerosol 0.1 mL by Nasal route as needed for Opioid Reversal. Crane the contents of one device (0.1mL) into [...] Take 1,000 mg by mouth daily. 12/25/2018 documented as of this encounter Ordered Prescriptions Prescription Sig Dispense Quantity Refills Last Filled Start Date End Date metoprolol (LOPRESSOR) 25 mg Oral Tablet Take 1 Tablet by mouth 2 times daily for 30 days. 60 Tablet 06/28/2025 5 losartan (COZAAR) 25 mg Oral Tablet Take 1 Tablet by mouth daily for 30 days. 30 Tablet 06/29/2025 levETIRAcetam (KEPPRA) 750 mg Oral Tablet Take 1 Tablet by mouth 2 times daily for 30 days. 60 Tablet 06/28/2025 fUROsemide (LASIX) 40 mg Oral Tablet Take 1 Tablet by mouth daily for 30 days. 30 Tablet 06/29/2025 oxyCODONE (ROXICODONE) 5 mg Oral Tablet Take 1-2 Tablets by mouth every 4 hours as needed for Acute Pain (R52) for up to 3 days. 12 Tablet 06/28/2025 5 gabapentin (NEURONTIN) 300 mg Oral Capsule Take 1 Capsule by mouth 3 times daily for 3 days. 9 Capsule 06/28/2025 5 documented in this encounter Discharge Disposition Disposition Code Departure Means Destination Comment s Longterm Facility Car Other Facil mari Steen documented in this encounter Progress Notes * [...] With Patient not available Visited By CPE Wallpaper Inspector Reason for Visit Hospitality visit;Spiritual, emotional or social support Patient Assessment Patient Jewish at Registration Uatsdin Care Plan Plan for Follow-Up Steam Tank Operator(s) remains available as needed Chapin Meyers Steam Tank Operator, Pastoral and Spiritual Care For non-urgent requests, please place a Pastoral Care consult in [place]. For all urgent matters, please send an urgent [facility] Secure Chat to the Pastoral Care group at your location. Between 11pm and 7am, please use On-Call Finder to send an [facility] Secure Chat to the on-call rivet tosser. Pastoral Care office phone numbers: EDG/COV/GRT [phone], FLORINA [phone], FTT [phone], DBN [phone] * Kailee Mena BSW - 07/01/2025 3:43 [...] needs noted. Final Note Post Acute Facility [facility] Post Acute Form Completed Yes Care [...] Comments #1 I'm leaving Others Present/Assisting Nicole ACTING TEACHER Therapy delay reason Patient refused * Manuel Frey RN - 07/01/2025 1:52 PM EDT Patient has been accepted to [facility] on Tuesday. nursing report number is [phone]. pharmacy has been changed.Family to provide transport at 10:00 am. please pass along to next shift. thanks! * Nicole Caicedo PTA - 07/01/2025 1:12 PM EDT 07/01/25 1125 PT Subjective Note Type Follow Up Treatment Attempt Patient Room/Unit TCU;4N PT Subjective Comments #1 pt refused to get up states leaving to [facility] in [place] attempted to redirect unsuccessfully. Therapy delay reason Patient declined * Kailee Mena BSW - 07/01/2025 10:54 AM EDT 07/01/25 1053 Ongoing Discharge Planning Evaluation Actual Discharge Plan 07.01--SW UPDATE. SW left a few messages with [facility] admission coordinator to determine if patient [...] injury Hold anticoagulation. Dispo: Discussed with RN, director of patient care. Awaiting facility in [place]. VTE Prophylaxis: Active Hospital Problems Diagnosis *Atrial [...] with RN. Awaiting placement for facility in [place]. VTE Prophylaxis: Active Hospital Problems Diagnosis *Atrial [...] does not want patient to go to [facility]. Looking for facility in [place]. VTE Prophylaxis: Active Hospital Problems Diagnosis *Atrial [...] does not want her to go to [place]. No nausea or vomiting. Objective: BP 140/90 [...] Mena BSW - 06/28/2025 2:49 PM EDT 9.12--SW ADD: SPOKE WITH FAMILY WHO IS NOW DECLINING DISCHARGE TO [facility] AND WOULD LIKE TO HAVE [facility] EVALUATE FOR POTENTIAL ADMISSION. NORA SPOKE WITH ТАТЬЯНА WITH ADMISSIONS [phone] WHO REQUESTED INFORMATION TO BE FAXED TO [phone] FOR REVIEW TO BE COMPLETED. FAMILY IS AWARE THATTHEY WILL NEED TO PROVIDE TRANSPORTATION TO FACILITY INSURANCE WILL NOT COVER THIS DISTANCE. CC WILL CONTACT FAMILY ONCE DECISION IS MADE FROM [facility]. SUJATA WITH [facility] AWARE OF [facility] CANCELLATION. TO FOLLOW. 06/28/25 8687 Discharge Planning Evaluation Actual Discharge Plan 06.28--NORA FINAL NOTE. Patient is set for discharge today. [facility] to provide transportation with fruit picker at 6:30. NORA updated nursing staff, family and Sujata with [facility]. No further needs noted. Final Note Referral to SEP Care Management (SEP patients only) N/A Transportation at Discharge Ambulance Date Expected 06/28/25 Transportation Location [facility] Confirmed Discharge Transportation Plan? Yes PASAR Completed [...] Notified of Plan Yes * Kimmie Schuler CCC-INDEPENDENT AGENT MUSIC EDUCATION - 06/28/2025 10:28 AM EDT 06/28/25 0947 Speech Pathology Treatment Note Patient Seen Today? Yes Note Type Treatment/Progress Diet Recommendations Regular Solids;Thin Liquids Strategies/Maneuvers Upright positioning 90 degrees Medication administration With thin liquids Assistance/Supervision Independent INDEPENDENT AGENT MUSIC EDUCATION Recommendation No post discharge therapy recommended Hospital [...] re: request for transportation assistance. Scheduled with: [facility]. Trip #: [id number] @ [phone] for 06-27-25 to [facility]. Patient and RN aware of tentative plan. 06/27/25 1521 Discharge Planning Evaluation Referral Type Transportation Transportation at Discharge Ambulance Transportation Options Private Pay Date Expected 06/27/25 Time Expected [address] [facility] Transportation setup completed by [employer] Yes Post Acute Form Completed Yes * Dinorah Stubbs MSW - 06/27/2025 3:06 PM EDT 06/27/25 1505 Ongoing Discharge Planning Evaluation Discussed discharge plans with Patient/Family/Caregiver/Support Person Yes, Discussed with patient and caregiver/support person Discussed discharge plans with Care Team at [facility] Yes, with nurse in attendance;Yes, with doctor in attendance Discharge to SNF Actual Discharge Plan 06/27 NORA Final: Note per MD, pt is okay to d/c this date. NORA met pt at bedside and completed d/c round. Pt states her plan is to d/c to [facility] this date. Post Acute Placement consent form completed and placed in pt's chart. NORA notified pt's son, Edgar to notify of d/c plans. Pt states no needs or preferences. NORA contacted Sujata from [facility] and notified of d/c time and date. Nurse updated. stated pt is not medically ready for d/c. NORA notified family, [facility] and [facility] of change. Edgar states he will contact family members. SW following. Final Note Post Acute Facility [facility] Post Acute Form Completed Yes Care Coordination Discharge Ready? Yes Transportation at Discharge Ambulance Date Expected 06/28/25 Transportation Assign to [employer] Yes PASAR Completed Not Applicable Patient Aware [...] EDT Heart & Vascular Progress Note PATIENT: [facility] Day 3 Cardiology following for: afib [...] hours have been reviewed Telemetry: afib controlled [id number] Stroke Risk Points: 9 Values used to [...] pleural effusions and dependent opacities - atelectasis -ACTING TEACHER lasix PRN -s/p IV diuresis - transition to PO lasix 40 mg -Continue lopressor 25 mg BID - can plan to change to Toprol prior to discharge -Start losartan 25 mg Coronary Artery Disease -Remote history of CABG 1992 and subsequent PCIs -ACTING TEACHER lipitor 40 mg, coreg 25 mg BID, ranexa 500 mg BID History of PE 2010 History Antiphospholipid Syndrome -No ACTING TEACHER AC with history of ICH Elevated Troponin -Troponin 92, 83 -EKG afib RVR -ECHO (06/24/2025) LVEF 45-50%. Mild MR. Severe TR. -No angina Type 2 Diabetes -A1c 5.3 Hypertension -ACTING TEACHER coreg 25 mg BID -Currently on lopressor 25 mg BID -Start losartan 25 mg Hyperlipidemia -ACTING TEACHER lipitor 40 mg Carotid Stenosis Peripheral Vascular Disease -s/p recent left AKA Plan: Doing well rates controlled, no bradycardia - continue lopressor 25 mg BID - would plan to change to Toprol at discharge with midrange EF Start losartan 25 mg Can plan to add additional GDMT as outpatient Further input from Dr Garner. Lianet Harris, BOARD MEMBER, Heart and Vascular 06/27/2025 Disposition Perspective - [...] as of 05/24/2025, who was [facility] from [place] [facility] with rapid atrial fibrillation and acute hypoxic respiratory failure. ECG on admission w/ rapid atrial fibrillation, possible old anteroseptal SD Hs Trop 92-83 NT Pro BNP [address] [facility] 11/25/2022- 1. CAD s/p CABG 2 of [...] sinus disease. On p.o. [facility] consulted. Phantom limb pain Status post [...] & Critical Care Medicine * Miryam Guzman, BOARD MEMBER - 06/26/2025 3:08 PM EDT Images from [...] presented to the ED on 06/23 from [facility] with findings of A fib RVR. [...] evaluation of the kidneys and bladder with representative government relations images and battery hand notes sent to PACS for radiologist review. [...] associated with diabetes (HCC) Assessment: S/P L AKA 05/24 PAD A fib RVR Hypotension Acute respiratory failure (now extubated) Seizure like activity CHF Anemia DM II Plan: -I removed noelle from Sophie ZAPIEN at bedside. Patient tolerated well. L RAMIREZA stump is stable and appearsto be healing [...] with tachybradycardia, seizure-like activity Past Med Hx L AKA 05/24/25 Precautions Therapy Precautions Yes Precaution Info Given Yes;Contact;To use call light to request assistance with all mobility Other precautions ESBL Home Living/Prior Function Level of Assistance Needs assistance with ADLs;Needs assistance with homemaking;Needs assistance with functional transfers (@ SNF) Fall History No falls in the last three months Additional Comments Has been at [facility] since Left AKA 05/24, plan is to [...] Dominance Right Gross Grasp Functional Coordination Functional Gathering Worker Strength WFL Coord/Sensation Assessed Grossly Intact/Normal Perception [...] therapy recommended. Time In / Time Out [id number] IP OT Evaluation Minutes 8 IP OT [...] from IV formulation to acetaminophen 650 mg PO/KS every 4 hours PRN per protocol. Thanks! Roni Spicer PharmD * Denisa Armando RD,LD - 06/26/2025 2:[address] [facility] Nutrition [...] Status: Active nutrition diagnosis Nutrition Prescription: Kcals: 0583-8654 kcal (25-30 kcal/55.7 kg) Protein (g): 67-84 [...] Comment: OGT removed with extubation yesterday, passed INDEPENDENT AGENT MUSIC EDUCATION eval this am and oral diet ashley [...] Supplement Acceptance: drinks 2 strawberry Glucerna daily shrimp boat captain Tube Feeding?: No (d/c'd yesterday with extubation) Chewing Difficulty: No Swallowing Difficulty: No (INDEPENDENT AGENT MUSIC EDUCATION jayda completed) Energy Intake: Other (comment) (denies [...] Stool Occurrence: 1 Stool Appearance: Type 5 Cotton Stool Chart Stool Color: Brown Stool Amount: Medium Biochemical Data/Medical Tests: Pertinent Labs: gluc 95, H/H 9.0/27.4, BNP 7743 Pertinent Medical Tests/Procedures: 05/24- intubated, OGT removed with extubation. 06/25-06/25 NGT Clinical Course: Clinical Course: [place] d/t Afib w/AVR, CP w/elevated troponin, CHFand Acute Pulm edema-lasix prescribed, Anemia, Intubated 05/24 d/t unresponsiveness and seizure like activity. 06/25 extubated, INDEPENDENT AGENT MUSIC EDUCATION following-oral diet advanced * Cely Luna MSW - 06/26/2025 1:46 PM EDT 06/26/25 1343 Ongoing Discharge Planning Evaluation Completed by CC/SW Yes Caregiver Name Edgar Buitrago - son Caregiver Anticipated post-acute care needs Nursing Facility Discussed discharge plans with Care Team at [facility] Yes, with nurse in attendance Patient's goals for recovery Return to Prior Level of Functioning Repisodic List provided N/A - Resumption care. Patient active with post acute partner prior to admission Discharge to SNF Actual Discharge Plan 06/26/2025 SW(UPDATE): Pt admitted with atrial fibrillation with RVR, acute pulmonary edema, elevated troponin and pleural effusion. Pt was at [facility] for SNF prior to admission. A proactive [...] seizure, bradykinesia,hypotension Past Med Hx PMH includes L AKA Clinical Course intubated 06/24-06/25 Pain Screening PT/OT Patient Currently in Pain Yes Additional Comments recent L AKA in May Cognition Orientation Intact Arousal Normal [...] Presentation Patient resting in bed Posture L AKA Observation Telemetry;Bed alarm;Garrido catheter;IV Vitals no signs [...] data and diagnostic testing reviewed 06/26/25. Jacob Hroowitz MD 06/26/2025 11:18 AM This note was [...] pleural effusions and dependent opacities - atelectasis -ACTING TEACHER lasix PRN -Currently on IV diuresis this admission -Volume status appears to be improving Coronary Artery Disease -Remote history of CABG and subsequent PCIs -ACTING TEACHER lipitor 40 mg, coreg 25 mg BID, ranexa 500 mg BID History of PE -No ACTING TEACHER AC with history of ICH Elevated Troponin -Troponin 92, 83 -EKG afib RVR -ECHO as above Type 2 Diabetes -A1c 5.3 Hypertension -ACTING TEACHER coreg 25 mg BID Hyperlipidemia -ACTING TEACHER lipitor 40 mg Peripheral Vascular Disease -s/p recent left AKA Plan: Seems to be tolerating po BB rates controlled 90's -2949 since admission -2250 overnight Cr remains stable BNP increased from previous 5011...7743 Possible need for ppm tachy/amber Further input from Dr Pascual Vela, BOARD MEMBER, Heart and Vascular 06/26/2025 Disposition Perspective - [...] as of 05/24/2025, who was [place] from [place] [facility] with rapid atrial fibrillation and acute hypoxic respiratory failure. A fib w/ RVR on admission, placed on dilt gtt, became bradycardic and hypotension, had subsequent PEA arrest, now s/p ETT and left IJ central line. ECG on admission w/ rapid atrial fibrillation, possible old anteroseptal SD Hs Trop 92-83 NT Pro BNP [address] [facility] 11/25/2022- 1. CAD s/p CABG 2 of [...] demand injury, no ACS. Continue atorvastatin. Sukh Garner, DO, FACC * Isidro Clifford RN - [...] ICU Length of Stay: 2 days Plan: Check Cashier monitoring Continue current diet order CLABSI Prevention [...] Updates Admission Admitted: 06/23/25 1533 Last Updated: 52 Overdue (9) ADL: Screening/Devices Advanced Directives Height/Weight Learning Assessment Nutrition Safety Screening: AUDIT/DAST Safety Screening: Fall History Sign consent: Partners in Care Spiritual Review: Values & Beliefs Completed (21) Allergies Arrival (Notification/Handbook) Srinivasan Scale Care Plan Exist Discharge Planning Fall Protection Meds: ACTING TEACHER Meds Meds: Pharmacy Verified Mobility Patient Education [...] w/ water and ice chips - pending INDEPENDENT AGENT MUSIC EDUCATION consult and evaluation tomorrow * Jeannette Camarillo [...] the RN and the care they're receiving. RETAIL MANAGER notified and spoke with family. Charge nurse [...] PEEP: 8 cmH20 Plateau Pressure (Ppl): 22 [id number] Airway Size: 7.5 Lab Results Component Value [...] fUROsemide 40 mg Intravenous Daily Insulin Calculator (HOME ENERGY RATER) - FSBS (Correction Only) Intake Input 1 [...] neurology follow up needed * Courtney Lloyd, DIRECTOR OF LABOR AND DELIVERY - 06/25/2025 11:32 AM EDT 06/25/25 1105 Respiratory $ Assess charge row Completed Assessment Type Assess Only Pulse 79 Resp 19 Level of Consciousness Alert Respiratory Pattern Regular;Even Chest Assessment Chest expansion symmetrical Oxygen Therapy/SPO2 Oxygen in Use Yes O2 Device Nasal cannula O2 Flow Rate (L/min) 3 lpm SpO2 96 % Oxygen Daily Oxygen Charge Initial RC Airway Care $ RC Airway Care [...] 96 % Oxygen Daily Oxygen Charge Initial RC Airway Care $ RC Airway Care [...] findings. Right paranasal sinus disease. On p.o. [facility] Neurology consulted. Acute on chronic diastolic heart [...] AKA noelle in place. Neurological: Bilateral hand monument setter helper strength 5/5 Skin: Skin is warm and [...] Garner, DO - 06/25/2025 7:36 AM EDT [facility] In[facility] Follow Up Note Admit Date: 06/23/2025 Provider: Duong Vitale MD CC: Chief Complaint Patient presents with Atrial Fibrillation a fib rvr from [facility]. they report HR of 180, per squad [...] Nightly Duong Vitale MD 40 mg at 06/24/252014 atropine injection 1 mg 1 mg Intravenous PRN Spencer Luna APRN calcium carbonate (TUMS) chewable tablet 1,000 mg 1,000 mg Oral Daily Duong Vitale MD 1,000 mgat 06/24/25 09 Carboxymethylcellulose Sodium (THERA TEARS) 1 % ophthalmic gel 1 Drop 1 Drop Both Eyes 6 times per day Donnie Esqueda MD 1 Drop at 06/25/25 0632 cyanocobalamin tablet 1,000 mcg 1,000 mcg Oral Daily uDong Vitale MD 1,000 mcg at 06/24/25 09 dexmedeTOMIDine in 0.9 % NaCL (PRECEDEX) 400 [...] - Potassium 1 Each MISCELLANEOUS PRN Spencer Lnua APRN Insulin Calculator (HOME ENERGY RATER) - FSBS (Correction Only) Intake Input 1 Each MISCELLANEOUS 6 times per day Spencer Luna APRN And insulin aspart U-100 (NovoLOG) injection 0-40 Units 0-40 Units Subcutaneous 6 times per day Spencer Luna APRN 4 Units at 06/24/25 0901 latanoprost (XALATAN) 0.005 % ophthalmic solution 1 Drop 1 Drop Ophthalmic Nightly Duong Vitale MD 1 Drop at 06/24/25 2256 levETIRAcetam (KEPPRA) injection 750 mg 750 mg Intravenous 2 times per day Rusty Sawyer MD 750 mg at 06/24/25 204 LORazepam (ATIVAN) 2 mg/mL injection melatonin tablet [...] 17 g 17 g Enteral BID Donnie Esqueda MD 17 g at 06/24/252015 potassium bicarbonate [...] 5 mL 5 mL Intravenous PRN Stephan Rodriguez MD sodium chloride 0.9% syringe Intravenous PRN [...] as of 05/24/2025, who was [place] from [place] [facility] with rapid atrial fibrillation and acute hypoxic respiratory failure. A fib w/ RVR on admission, placed on dilt gtt, became bradycardic and hypotension, had subsequent PEA arrest, now s/p ETT and left IJ central line. ECG on admission w/ rapid atrial fibrillation, possible old anteroseptal SD Hs Trop 92-83 NT Pro BNP [address] [facility] 11/25/2022- 1. CAD s/p CABG 2 of [...] overall guarded prognosis Signed: Sukh Garner DO, [facility] * Isidro Clifford, MAHENDRA - 06/25/2025 12:45 [...] ICU Length of Stay: 1 days Plan: Check Cashier monitoring CLABSI Prevention CHG Application: Completed (06/24/25 [...] Plan Exist Discharge Planning Fall Protection Meds: ACTING TEACHER Meds Meds: Pharmacy Verified Mobility Patient Education [...] Vent -ICU -overnight events noted -discussed w director of curriculum and instruction -Vent bundle NG feeds ---Nutrition following Atrial fibrillation with RVR (HCC) ICU -Cardizem drip stopped last PM before rapid response and resp arrest -Coreg ( HOLDING) -Cards eval pending -Recent Echo reviewed -NSR this AM History of pulmonary embolus (PE) No current AC -hx Sub Arachnoid bleed Hypertension associated with diabetes (HCC) Coreg HELD -Recent A1C 5.4 -NG feeds and HOME ENERGY RATER for sugars now that in ICU Acute [...] diagnostic testing reviewed 06/24/25. TRIGLYCERIDES Collected: 06/24/25 0510 Final result Specimen: Blood, Venous Triglyceride 107 mg/dL 06/24/25 0553 COMPREHENSIVE METABOLIC PANEL Collected: 06/24/25 0510 Final result Specimen: Blood, Venous Sodium 136 [...] 06/24/25 0539 BLOOD GAS ARTERIAL Collected: 06/24/25 0526 Final result Specimen: Blood, Arterial pH 7.45 pH Base Excess -1.8 mmol/L pCO2 31 Low mmHg O2 Sat 97.7 % pO2 86 mmHg Inspired O2 50 HCO3 21.8 Low mmol/L P/F Ratio 172 Low mmHg TCO2 21 Low mmol/L 06/24/25 0534 CBC Collected: 06/24/25 0510 Final result Specimen: Blood, Venous WBC 4.5 x10(3)/mcL MCH 37.2 High pg RBC 2.23 Low x10(6)/mcL MCHC 33.2 g/dL Hgb 8.3 Low g/dL RDW 20.0 High % Hct 25.0 Low % Platelet 83 Low x10(3)/mcL MCV 112.1 High fL MPV 12.8 High fL 06/24/25 0233 BLOOD GAS ARTERIAL Collected: 06/24/25224 Final result Specimen: Blood, Arterial pH 7.38 pH Base Excess -2.5 Low mmol/L pCO2 38 mmHg O2 Sat 86.7 Low % pO2 56 Low mmHg Inspired O2 70 HCO3 22.3 mmol/L P/F Ratio 80 Low mmHg TCO2 21 Low mmol/L Duong Vitale MD 06/24/2025 11:08 AM * Denisa Armando RD,LD - 06/24/2025 9:[address] [facility] Nutrition [...] to get more.: Never true Supplement Acceptance: Strw glucerna on recent admit Tube Feeding?: No [...] 8.3/25.0, Na+ 136, Ca+ 8.5 BNP 7992, 06/24 trig 107 Pertinent Medical Tests/Procedures: 05/24 intubated, NGTplaced Pertinent Medical History: DM (05/03/25 a1c 5.4%) HTN, CHF, liver disease, HLD, stroke, CAD, CKD3, CABG, PE 05/24/25 L-AKA Clinical Course: Clinical Course: Admitted from [place] d/t Afib w/AVR, CP w/elevated troponin, CHFand Acute Pulm edema-lasix prescribed, Anemia, Intubated 05/24 d/t unresponsiveness and seizure like activity * Eleuterio Renteria S, DIRECTOR OF LABOR AND DELIVERY - 06/24/2025 7:42 AM EDT 06/24/25 0742 [...] $Pt/Vent Assessment Service Code Completed Vent ID [id number] O2 Device Ventilator Vent Type (S)CMV+ Vent [...] Rich MD - 06/24/2025 3:08 AM EDT THC Physician - Brief Progress Note PERMANENT 06/24/2025 04:06 [facility] - [facility] - ICU - 18 - F, BEATRIZ MICHELE SKYLER Date of Service 06/24/2025 04:06 HPI/Events of Note [facility] Provider Assessment Note Ms. Bautista is [...] sensitivity factor correctional [facility] q.4 [facility] if [facility] is [...] called and will be coming in from [place], [place] Belongings were charted and skin on [...] Dry, No erythema, No rash. Extremities: Left mecqc-sps-heiy amputation with noelle at stump. Neurologic: Obtunded [...] with patient;In person interview with family/friend (Identify) (Rekha - Shannon Prince) Pt identified support person Family Who does [...] Manual Patient's Living Arrangments Prior to Admission? [facility] Care Facility Name [facility] Support Systems Children;Family Members Is PCP listed on facesheet correct? No Who does patient report as PCP? Dr. Howell in [place], [place] Identified psychosocial/financial issues Assist with discharge arrangement for patients transferring to SNF's Follow Up Assigned To: Referral not needed concern identified and addressed by Sales Product Specialist Anticipated post-acute care needs Nursing Facility ED [...] CC INITIAL: Met with patient and Rekha (Shannon) at bedside in ED.Patient is being admitted with Atrial fibrillation with RVR, Acute pulmonary edema, Elevated troponin and Pleural effusion. GARCIA explained, signed and placed on chart. Patient currently at [facility] for SNF. Patient wishes to return at discharge to complete therapy. Resumption referral sent via [employer]. Mostly independent with ADLs. DME includes a MWC. PCP is Dr. Howell in [place], [place]. Pharmacy needsbeing met through [employer]. No issues with medication affordability. SDOH completed. No needs identified at this time. Anticipate Niyane Redmond) to transport at discharge. CC to follow. [...] In the past 12 months has the [employer], gas, oil, or water [employer] threatened to shut off services in your [...] Do you speak a language other than British at home? No Do you want help [...] with Atrial Fibrillation a fib rvr from [facility]. they report HR of 180, per squad HR 103. History of Present Illness: Skyler Bautista is a 84 y.o. female admitted thru the ER after being sent by [facility] for increasing dyspnea and tachycardia. Found to have Afib w RVR by EMS and now on cardizem drip w sx improved.Also given Lasix for Pulm edema in ER. PT has had increasing SX for 3-4 days. Her heart [place] 180[place] [facility] EMS states that her heart rates are [...] IR REVAS FEM POP ART UNILAT W ACTING TEACHER 01/30/2025 IR REVAS FEM POP ART UNILAT W ACTING TEACHER 01/30/2025 Vargas Wolf MD EDG IR IR [...] true Transportation Needs: No Transportation Needs (05/01/2025) [facility] IP Transportation In the past 12 months, has lack of reliable transportation kept you from medical appointments, meetings, work or from getting things needed for daily living?: No Physical Activity: Inactive (05/01/2025) Exercise Vital Sign Days of Exercise per Week: 0 days Minutes of Exercise per Session: 0 min Stress: No Stress Concern Present (05/01/2025) [employer] - Occupational Stress Questionnaire Feeling of Stress : Not at all Received from [employer] ([place], [place], [place], [place]) Family and Community Support Intimate Partner Violence: Not At Risk (08/06/2024) Received from [facility] Humiliation, Afraid, Rape, and Kick questionnaire Fear of Current or Ex-Partner: No Emotionally Abused: No Physically Abused: No Sexually Abused: No Housing Stability: Low Risk (08/06/2024) Received from [facility] Housing Stability Vital Sign Unable to Pay [...] 06/23/25 1611 Final result Specimen: Blood, Venous gc-dIlctfvxw-D 2HR 83 High ng/L hs-cTnT 2Hr Delta from Baseline -9 ng/L 06/23/25 1410 TROPONIN-T HIGH SENSITIVITY BASELINE W/ REFLEX Collected: 06/23/25 1328 Final result Specimen: Blood, Venous zw-eYyaglzbw-Q 92 High ng/L 06/23/25 1358 BASIC METABOLIC [...] arch aneurysm. No pneumothorax. Small left and wqain-sf-wuzzvccn right pleural effusions. Emphysema. Opacities dependently in [...] review; Final Interpretation by physician to follow. [facility] Test Date: 2025-06-23 Pat Name: SKYLER BAUTISTA Department: DEPID Room: 03 Gender: Female Telegraph Equipment Maintainer: Femi : 1940 Requested By: STEPHAN Earl Order Number: [id number] Reading MD: Measurements Intervals [place] Rate: 139 P: 0 KS: 0 QRS: 65 QRSD: 82 T: 26 [...] were not included. 06/26/2025 Skyler Bautista 1940 [id number] Reason for Consult: Urinary retention Requesting Physician: Duong Vitale MD History Obtained From: Patient, chart review HISTORY OF PRESENT ILLNESS: The patient is a 84 y.o. female with a PMHx of PAD, CHF, Afib, CKD, DM, admitted on 06/23/2025 to [facility] for AFIB with RVR. She is currently in ICU for AFIB with tachycardia, seizure like activity, acute on chronic HF. Urology has been consulted for Urinary Retention. Patient with elevated PVRs, has been straight cath for 850cc several times since admission. Indwelling garrido placed last night, 06/25/2025, by SPANISH TEACHER. Of note, the patient was seen by [...] Knee Amputation; Surgeon: Vargas Wolf MD; Location: [facility] MAIN OR; Service: Vascular CARDIAC CATHETERIZATION CARDIAC SURGERY CABG/stents FOOT SURGERY Left 03/09/2025 Transmetatarsal amputation of the left foot; Surgeon: Dacia Mills DPM; Location: ED [facility]; Service: Podiatry FOOT SURGERY Left 03/17/2025 left [...] IR REVAS FEM POP ART UNILAT W ACTING TEACHER 01/30/2025 IR REVAS FEM POP ART UNILAT W ACTING TEACHER 01/30/2025 Vargas Wolf MD EDG IR IR [...] OAB medications and none noted on review ofhome meds. Recommend keeping garrido and doing outpatient [...] in ICU, intubated and sedated. Will assess L RAMIREZA stump for staple removal once medically stable/improved. [...] CHF (congestive heart failure) (HCC) Diabetes mellitus ([facility]) not currently on meds,rehab discontued Difficult intravenous access possible use of iv therapy/ultrasound to help with venous access. RIVERA (dyspnea on exertion) Encounter for blood transfusion Fatty liver Glaucoma Heartburn Hyperlipidemia Hypertension Liver disease Mixed hyperlipidemia Peripheral vascular disease Renal disorder Renal insufficiency Shortness of breath Sleep apnea pt has cpap, but is not using. Stroke ([facility]) pt's states around 3 years ago. Urinary incontinence Urinary tract infection Active Hospital Problems Diagnosis *Atrial fibrillation with RVR ([facility]) Seizure ([facility]) Respiratory arrest ([facility]) Atrial fibrillation with slow ventricular response ([facility]) Acute pulmonary edema ([facility]) Anemia in other chronic diseases classified elsewhere Stage 3a chronic kidney disease ([facility]) Chest pain, unspecified type // Elevated troponin Acute on chronic heart failure with preserved ejection fraction ([facility]) Hx of subarachnoid hemorrhage // 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 Crane the contents of one device (0.1mL) into [...] -- -- 50 20 100 % -- 06/24/254 -- -- -- -- -- -- 126 [...] -- -- 78 -- 95 % -- 06/23/258 100/44 97.1 ??F (36.2 ??C) Oral 53 [...] AM EDTAssociated Order(s): IP CONSULT TO MEDICAL LABORER STEEL HANDLING Images from the original note were not included. PULMONARY / CRITICAL CARE CONSULT NOTE Spencer Luna, BOARD MEMBER 06/24/2025 Patient: Skyler Bautista 84 y.o. female Date of Admission: 06/23/2025 Admitting Provider: Duong Vitale MD CC: Chief Complaint Patient presents with Atrial Fibrillation a fib rvr from [facility]. they report HR of 180, per squad HR 103. Skyler Bautista is a(n)84 y.o. female is being evaluated following ICU admission for acute hypoxic respiratory failure, seizures and bradycardia. HPI: Ms. Bautista is an 84 year old female with a PMHx significant for A-fib, PE, HFpEF, subarachnoid hemorrhage, TBI, T2DM, CKD, PVD, and recent left AKA. [facility] [place] [facility] [place] [facility] admission for AKA with complaints [...] IR REVAS FEM POP ART UNILAT W ACTING TEACHER 01/30/2025 IR REVAS FEM POP ART UNILAT W ACTING TEACHER 01/30/2025 Vargas Wolf MD EDG IR IR [...] true Transportation Needs: No Transportation Needs (06/23/2025) [facility] IP Transportation In the past 12 months, has lack of reliable transportation kept you from medical appointments, meetings, work or from getting things needed for daily living?: No Physical Activity: Inactive (06/23/2025) Exercise Vital Sign Days of Exercise per Week: 0 days Minutes of Exercise per Session: 0 min Stress: No Stress Concern Present (06/23/2025) [employer] - Occupational Stress Questionnaire Feeling of Stress : Not at all Social Connections: Low Risk (10/30/2023) Received from [employer] ([place], [place], [place], [place]) Family and Community Support Help with Day to Day Activities: Not on file Feeling Lonely or Isolated: Not on file Intimate Partner Violence: Not At Risk (08/06/2024) Received from [facility] Humiliation, Afraid, Rape, and Kick questionnaire Fear of Current or Ex-Partner: No Emotionally Abused: No Physically Abused: No Sexually Abused: No Housing Stability: Low Risk (08/06/2024) Received from [facility] Housing Stability Vital Sign Unable to Pay [...] fUROsemide 40 mg Intravenous Daily Insulin Calculator (HOME ENERGY RATER) - FSBS (Correction Only) Intake Input 1 [...] 0 Taking nalOXone (NARCAN) 4 mg/actuation Nasl Crane, Non-Aerosol 0.1 mL by Nasal route as needed for OpioidReversal. Crane the contents of one device (0.1mL) into [...] ??C), Max:97.5 ??F (36.4 ??C) Date 06/24/25 0700 - 06/25/25 0659 Shift [id number] 5731-3687 [id number] 24 Hour Total INTAKE I.V.(mL/kg/hr) 4.5 4.5 [...] G[facility] Test Date: 2025-06-24 Pat Name: SKYLER SALAZARVAN Department: DEPID Room: [facility] Gender: Female 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 : 1940 Requested By: DONNIE ESQUEDA Order Number: [id number] Reading MD: Sukh Garner Measurements Intervals [place] Rate: 54 P: 0 KS: 0 QRS: 39 QRSD: 89 T: 0 [...] clinician. EK EKG [address] [facility] Test Date: 2025-06-23 Pat Name: SKYLER BAUTISTA Department: DEPID Room: [facility] Gender: Female Telegraph Equipment Maintainer: Femi : 1940 Requested By: STEPHAN Earl Order Number: [id number] Ivone MD: Jaycob Sandoval Measurements Intervals [place] Rate: 139 P: 0 KS: 0 QRS: 65 QRSD: 82 T: 26 [...] using Isovue 370IV contrast as recorded in [employer]. 2-D multiplanar reconstructions and 3-D MIP reconstructions reviewed. Dose 1 : CT DLP Total : 109.65 mGycm DLP Spiral Max : 96.21 mGycm Maximum CTDI Vol : 9.53 mGy FINDINGS: Adequate visualization of the pulmonary arteries to the segmental/subsegmental level. No acute pulmonary embolism. No aortic arch aneurysm. No pneumothorax. Small left and glgqa-pq-isotqyzo right pleural effusions. Emphysema. Opacities dependently in [...] ordered Insulin Regimen: Q4H CCI Last BM: ACTING TEACHER Assessment Acute hypoxic respiratory failure Seizure Atrial [...] GI prophylaxis: Protonix CODE status: DNR Limited BOARD MEMBER critical care time: 17 minutes Spencer Luna [...] assessment, and discussed the plan with the RETAIL MANAGER. Please see my note below for additional [...] [facility] * Sukh Garner, - 06/24/2025 10:18 AM EDTAssociated Order(s): IP [...] 06/23* forshortness of breath. [facility] recent AKA and developed shortness of breath for four days ACTING TEACHER. In the ED she was noted to [...] occlusion CHF (congestive heart failure) ([facility]) Diabetes mellitus (HCC) not currently on meds,rehab discontued Difficult intravenous access possible use of iv therapy/ultrasound to help with venous access. RIVERA (dyspnea on exertion) Encounter for blood transfusion Fatty liver Glaucoma Heartburn Hyperlipidemia Hypertension Liver disease Mixed hyperlipidemia Peripheral vascular disease Renal disorder Renal insufficiency Shortness of breath Sleep apnea pt has cpap, but is not using. Stroke ([facility]) pt's states around 3 years ago. Urinary incontinence Urinary tract infection ACTING TEACHER Medications: Prior to Admission medications Medication Sig [...] Montiel MD nalOXone (NARCAN) 4 mg/actuation Nasl Crane, Non-Aerosol 0.1 mL by Nasal route as needed for OpioidReversal. Crane the contents of one device (0.1mL) into [...] 40 mg Intravenous BID Diuretic Insulin Calculator (HOME ENERGY RATER) - FSBS (Correction Only) Intake Input 1 [...] day fentaNYL (SUBLIMAZE) infusion orderable 1 mcg/kg/hr (06/24/25700) propofol 10 mcg/kg/min (06/24/25700) Past Surgical History Past Surgical History: Procedure Laterality Date ABDOMEN SURGERY ABOVE KNEE AMPUTATION Left 05/24/2025 Left Above Knee Amputation; Surgeon: Vargas Wolf MD; Location: [facility] MAIN OR; Service: Vascular CARDIAC CATHETERIZATION CARDIAC [...] IR REVAS FEM POP ART UNILAT W ACTING TEACHER 01/30/2025 IR REVAS FEM POP ART UNILAT W ACTING TEACHER 01/30/2025 Vargas Wolf MD EDG IR IR [...] Active Problem List Diagnosis Coronary arteriosclerosis in [place] artery // Hx of CABG Closed nondisplaced [...] left foot Exostosis of toe Atherosclerosis of [place] artery of extremity Abscess of toe of [...] most recent cardiovascular imaging studies available in [facility] EMR were reviewed at time of consultation [...] pleural effusions and dependent opacities - atelectasis -ACTING TEACHER lasix PRN -Currently on IV diuresis this admission -Volume status appears to be improving - likely transition to PO tomorrow Coronary Artery Disease -Remote history of CABG and subsequent PCIs -ACTING TEACHER lipitor 40 mg, coreg 25 mg BID, ranexa 500 mg BID History of PE -No ACTING TEACHER AC with history of ICH Elevated Troponin -Troponin 92, 83 -EKG afib RVR -ECHO pending Type 2 Diabetes -A1c 5.3 Hypertension -ACTING TEACHER coreg 25 mg BID Hyperlipidemia -ACTING TEACHER lipitor 40 mg Peripheral Vascular Disease -s/p recent left AKA Plan: Check ECHO Holding rate slowing medications Continue telemetry Reduce IV diuresis to daily - likely transition to PO tomorrow May need eventual EP consult for consideration of PPM Further input from Dr. Pascual Harris, BOARD MEMBER Heart and Vascular 06/24/2025 Disposition Perspective - [...] as of 05/24/2025, who was [facility] with rapid atrial fibrillation and acute hypoxic respiratory failure. A fib w/ RVR on admission, placed on dilt gtt, became bradycardic and hypotension, had subsequent PEA arrest, now s/p ETT and left IJ central line. ECG on admission w/ rapid atrial fibrillation, possible old anteroseptal SD Hs Trop 92-83 NT Pro BNP 7992 [facility] 11/25/2022- 1. CAD s/p CABG 2 of [...] comorbidities, overall guarded prognosis. Sukh Garner DO, [facility] documented in this encounter ED Notes * Bart Fallon - 06/23/2025 3:44 PM EDT Lab called and said patient's mint green top needs redrawn. * Bart Fallon - 06/23/2025 3:42 PM EDT Paged cardiology about consult on patient. * Stephan Rodriguez MD - 06/23/2025 1:13 PM EDT Chief Complaint Patient presents with Atrial Fibrillation a fib rvr from [facility]. they report HR of 180, per squad HR 103. This is an 84-year-old female with a history of atrial fibrillation, diabetes mellitus, hypertension, CHF, peripheral vascular disease who presents to the emergency department by squad from the [place] for evaluation. The patient has been short of breath for the last 4 to 5 days. She states that it is better when they have placed her on oxygen, but she is not normally on oxygen. Her heart rates were apparently in the 180s [facility] [place] [facility] EMS states that her heart rates are [...] Montiel MD nalOXone (NARCAN) 4 mg/actuation Nasl Crane, Non-Aerosol 0.1 mL by Nasal route as needed for OpioidReversal. Crane the contents of one device (0.1mL) into [...] but is not using. Stroke ([facility]) pt's states around 3 years [...] IR REVAS FEM POP ART UNILAT W ACTING TEACHER 01/30/2025 IR REVAS FEM POP ART UNILAT W ACTING TEACHER 01/30/2025 Vargas Wolf MD EDG IR IR [...] present. Musculoskeletal: Comments: There is a left cyydb-nzb-dpfo amputation. Skin: Findings: No erythema. Neurological: General: [...] arch aneurysm. No pneumothorax. Small left and auybh-kb-guejayxn right pleural effusions. Emphysema. Opacities dependently in [...] BASELINE W/ REFLEX Result Value Ref Range hz-eMgbredxt-U 92 (H) <14 ng/L Narrative Ingestion of [...] BAUTISTA Department: DEPID Room: 03 Gender: Female Telegraph Equipment Maintainer: Femi : 1940 Requested By: STEPHAN Earl Order Number: [id number] Reading MD: Measurements Intervals [place] Rate: 139 P: 0 KS: 0 QRS: 65 QRSD: 82 T: 26 QT: 286 QTc: 436 Interpretive Statements ATRIAL FIBRILLATION WITH RAPID VENTRICULAR RESPONSE SEPTAL MYOCARDIAL INFARCTION, PROBABLY OLD ED Course: Appropriate laboratory and radiology studies reviewed ED Course as of 06/23/25 1533 Stephan Rodriguez's Documentation Sun Jun 23, 2025 1323 The patient was seen and examined. History was obtained from the patient, EMS, the [place] [facility], and review of previous medical records. Differential [...] performed to rule out pulmonary embolism. 1417 nf-bUlqkkycg-N(!): 92 Troponin elevated. This will be trended. [...] time Total time critical care 38 minutes [facility] Medical Decision Making Problems Addressed: Acute pulmonary [...] injury Hold anticoagulation. Dispo: Discussed with RN, director of patient care. Awaiting facility in [place]. * Utilization Review Notes - Dacia Peters RN - 06/27/2025 12:23 PM EDT CONT'D STAY REVIEW ON [place] 4[place] TELEMETRY FOR Acute respiratory failure with hypoxia, RESP ARREST, AFIB WITH RVR + IP ORDER ON CHART ADMIT 06/23/25 OBS; INPATIENT 06/24/25 EXTUBATED 06/25/25 TELEMETRY, PT/OF-JZNGZYKGXA-HGZDLCYKD-VASCULAR SURGERY FOLLOWING, INSULIN PROTOCOL, KEPPRA PO BID [...] * Plan of Care - Charlee Turner CCC-INDEPENDENT AGENT MUSIC EDUCATION - 06/26/2025 11:03 AM EDT Clinical Swallow [...] Medical History Afib RVR on admission from [facility] for rehab post AKA on Lleg 06/24: [...] Goal none voiced Patient/Family Education Completed Yes INDEPENDENT AGENT MUSIC EDUCATION Recommendation No post discharge therapy recommended Frequency/Follow [...] Amador RN - 06/23/2025 4:19 PM EDT chart review. Pt admitted as Obs 06/23/25 through ED Atrial Fibrillation-a fib rvr from [facility]. they report HR of 180, per squad [...] original note were not included. 06/26/2025 Skyler Salazarvan 1940 [id number] Reason for Consult: Urinary retention Requesting Physician: Duong Vitale MD History Obtained From: Patient, chart review HISTORY OF PRESENT ILLNESS: The patient is a 84 y.o. female with a PMHx of PAD, CHF, Afib,CKD, DM, admitted on 06/23/2025 to [facility] for AFIB with RVR. She iscurrently in ICU for AFIB with tachycardia, seizure like activity, acuteon chronic HF. Urology has been consulted for Urinary Retention. Patientwith elevated PVRs, has been straight cath for 850cc several times sinceadmission. Indwelling garrido placed last night, 06/25/2025, by SPANISH TEACHER. Jossue, the patient was seen by our group [...] IR REVAS FEM POP ART UNILAT W ACTING TEACHER 01/30/2025 IR REVAS FEM POP ART UNILAT W ACTING TEACHER 01/30/2025 Vargas Wolf MD EDG IR IR [...] 12:16 PM EDT IP CONSULT TO MEDICAL LABORER STEEL HANDLING Routine 06/24/2025 11:57 AM EDT Procedure Note - Spencer Luna, BOARD MEMBER - 06/24/2025 11:46 AM EDTThis note is in progress. Images from the original note were not included. PULMONARY / CRITICAL CARE CONSULT NOTE Spencer Luna, BOARD MEMBER 06/24/2025 Patient: Skyler Bautista 84 y.o. female Date of Admission: 06/23/2025 Admitting Provider: Duong Vitale MD CC: Chief Complaint Patient presents with Atrial Fibrillation a fib rvr from [facility] [employer]. they report HR of 180, per squad HR 103. Skyler Bautista is a(n)84 y.o. female is being evaluated following ICUadmission for acute hypoxic respiratory failure, seizures andbradycardia. HPI: Ms. Bautista is an 84 year old female with a PMHx significant forA-fib, PE, HFpEF, subarachnoid hemorrhage, TBI, T2DM, CKD, PVD, and recentleft AKA. [place] [facility] for AKA withcomplaints of [...] with Afib with RVR and rate in ini236's. Trops: 92 -> 83, K: 4.5, creatinine: 0.84. She was admitted to [facility] further management. She was continued on Cardizem [...] IR REVAS FEM POP ART UNILAT W ACTING TEACHER 01/30/2025 IR REVAS FEM POP ART UNILAT W ACTING TEACHER 01/30/2025 Vargas Wolf MD EDG IR IR [...] Mills DPM;Location: ED MAIN OR; Service: Podiatry FH: No family [...] true Transportation Needs: No Transportation Needs (06/23/2025) [facility] Transportation In the past 12 months, has lack of reliable transportation kept you frommedical appointments, meetings, work or from getting things needed fordaily living?: No Physical Activity: Inactive (06/23/2025) Exercise Vital Sign Days of Exercise per Week: 0 days Minutes of Exercise per Session: 0 min Stress: No Stress Concern Present (06/23/2025) [employer] of Occupational Health - Occupational StressQuestionnaire Feeling of Stress : Not at all Social Connections: Low Risk (10/30/2023) Received from [employer] ([place], [place], [place], [place]) Family and Community Support Help with Day to Day Activities: Not on file Feeling Lonely or Isolated: Not on file Intimate Partner Violence: Not At Risk (08/06/2024) Received from [facility] Humiliation, Afraid, Rape, and Kick questionnaire Fear of Current or Ex-Partner: No Emotionally Abused: No Physically Abused: No Sexually Abused: No Housing Stability: Low Risk (08/06/2024) Received from [facility] Housing Stability Vital Sign Unable to Pay [...] fUROsemide 40 mg Intravenous Daily Insulin Calculator (HOME ENERGY RATER) - FSBS (Correction Only) Intake Input 1 [...] 0 Taking nalOXone (NARCAN) 4 mg/actuation Nasl Crane, Non-Aerosol 0.1 mL by Nasalroute as needed for Opioid Reversal. Crane the contents of one device(0.1mL) into one [...] Date 06/24/25 0700 - 06/25/25 0659 Shift [id number] 24 Hour Total INTAKE I.V.(mL/kg/hr) 4.5 4.5 [...] 12 LEAD Result Date: 06/24/2025 [facility] Date[facility]25[facility] Pat Name: SKYLER BAUTISTA Department: DEPIDPatient ID: [id number] Room: [facility] Gender:Female 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 : [id number] By: DONNIE ESQUEDA Order Number: [id number] MD: Sukh GarnerMeasurements Intervals [place] Rate:54 P: 0 KS: 0QRS: 39 QRSD: 89 T:0 QT: 462 [...] the ordering clinician. EK EKG 12 LEAD [facility] Date:2025-06-23 Pat Name: SKYLER BAUTISTA Department: DEPIDPatient ID: [id number] Room: W428 Gender:Female Telegraph Equipment Maintainer: Femi : [id number] By: STEPHAN Earl Order Number: [id number] MD: Jaycob Sandoval MeasurementsIntervals [place] Rate: 139P: 0 KS: 0QRS: 65 QRSD: 82 T: 26QT: 286 QTc: 436InterpretiveStatements ATRIAL FIBRILLATION WITH RAPID VENTRICULAR RESPONSE POSSIBLEANTEROSEPTAL MYOCARDIAL INFARCTION, PROBABLY OLD Electronically Signed [id number] 19:29:47 [address]T [address] Jaycob [address]oval [address] ANGIOGRAM PULMONARY W CONTRAST Result Date: 06/23/2025 CT PULMONARY ANGIOGRAM, 06/23/2025 2:57 PM CLINICAL HISTORY: -Short ofbreath, elevated D-dimer, atrial fibrillation. COMPARISON: None.TECHNIQUE: PE protocol CT angiogram of the chest using Isovue 370 IVcontrast as recorded in [employer]. 2-D multiplanar reconstructions and 3-D MIPreconstructions reviewed. Dose 1 : CT DLP Total : 109.65 mGycm DLP SpiralMax : 96.21 mGycm Maximum CTDI Vol : 9.53 mGy FINDINGS: Adequatevisualization of the pulmonary arteries to the segmental/subsegmentallevel. No acute pulmonary embolism. No aortic arch aneurysm. Nopneumothorax. Small left and losbm-em-hiyvzgao right pleural effusions.Emphysema. Opacities dependently in the [...] ordered Insulin Regimen: Q4H CCI Last BM: ACTING TEACHER Assessment Acute hypoxic respiratory failure Seizure Atrial [...] GI prophylaxis: Protonix CODE status: DNR Limited BOARD MEMBER critical care time: 17 minutes Spencer Luna [...] in neurologic consultation atthe request of Duong iVtale MD for evaluation of Seizure. Seizure History [...] I am seeing in neurologic consultation at [facility] of Duong Vitale MD for evaluation of [...] SDH. Past Medical History: Diagnosis Date A-fib ([facility]) Arthritis Blood circulation, collateral CAD [...] but is not using. Stroke ([facility]) pt's states around 3 years [...] Patch 0 nalOXone (NARCAN) 4 mg/actuation Nasl Crane, Non-Aerosol 0.1 mL by Nasalroute as needed for Opioid Reversal. Crane the contents of one device(0.1mL) into one [...] and sedated History of Present Illness: Skyler Bautisat is a 84 y.o. 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 In the ED she was noted to [...] but is not using. Stroke ([facility]) pt's states around 3 years ago. 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 Crane the contents of one device(0.1mL) into one [...] 40 mg Intravenous BID Diuretic Insulin Calculator (HOME ENERGY RATER) - FSBS (Correction Only) Intake Input 1 [...] IR REVAS FEM POP ART UNILAT W ACTING TEACHER 01/30/2025 IR REVAS FEM POP ART UNILAT W ACTING TEACHER 01/30/2025 Vargas Wofl MD [facility] IR IR ULTRASOUND GUIDED VASCULAR [...] Mills DPM;Location: [facility] MAIN OR; Service: Podiatry Allergy Allergies Allergen Reactions Lidocaine Rash Nitrofurantoin Rash Morphine Other (See Comments) Patient Active Problem List Diagnosis Coronary arteriosclerosis in [place] artery // Hx of CABG Closed nondisplaced [...] left foot Exostosis of toe Atherosclerosis of [place] artery of extremity Abscess of toe of [...] most recent cardiovascular imaging studies available in [facility] EMR werereviewed at time of consultation Physical [...] Bilateral pleural effusions and dependent opacities -atelectasis -ACTING TEACHER lasix PRN -Currently on IV diuresis this admission -Volume status appears to be improving - likely transition to PO tomorrow Coronary Artery Disease -Remote history of CABG and subsequent PCIs -ACTING TEACHER lipitor 40 mg, coreg 25 mg BID, ranexa 500 mg BID History of PE -No ACTING TEACHER AC with history of ICH Elevated Troponin -Troponin 92, 83 -EKG afib RVR -ECHO pending Type 2 Diabetes -A1c 5.3 Hypertension -ACTING TEACHER coreg 25 mg BID Hyperlipidemia -ACTING TEACHER lipitor 40 mg Peripheral Vascular Disease -s/p recent left AKA Plan: Check ECHO Holding rate slowing medications Continue telemetry Reduce IV diuresis to daily - likely transition to PO tomorrow May need eventual EP consult for consideration of PPM Further input from Dr. Pascual Harris, BOARD MEMBER [facility] 06/24/2025 Disposition Perspective - [...] AKA as of 05/24/2025, [place] [facility] [place] [facility] with rapid [facility] fibrillation and acutehypoxic respiratory failure. A fib w/ RVR on admission, placed on dilt gtt, became bradycardic andhypotension, had subsequent PEA arrest, now s/p ETT and left IJ centralline. ECG on admission w/ rapid atrial fibrillation, possible old anteroseptalMI Hs Trop 92-83 NT Pro BNP [id number] [facility] 11/25/2022- 1. CAD s/p CABG 2 of [...] GLUCOSE METER POC (07/02/2025 8:08 AM EDT) [facility] Glucose Meter POC 112(H) 70 - 100 mg/dL 07/02/2025 8:11 AM EDT [facility] Sample Type Capillary 07/02/2025 8:11 AM EDT [facility] Patient Status Non-Critical Patient 07/02/2025 8:11 AM EDT [facility] Blood BLOOD SPECIMEN / Unknown 07/02/2025 8:08 AM EDT 07/02/2025 8:11 AM EDT Duong Vitale MD POINT OF CARE TEST ORDERABLES Final Result [facility] [address] [place] [address] * (ABNORMAL) GLUCOSE METER POC (07/01/2025 8:19 PM EDT) Glucose Meter POC 123(H) 70 - 100 mg/dL 07/01/2025 8:20 PM EDT [facility] Sample Type Capillary 07/01/2025 8:20 PM EDT [facility] Patient Status Non-Critical Patient 07/01/2025 8:20 PM EDT [facility] Blood BLOOD SPECIMEN / Unknown 07/01/2025 8:19 PM EDT 07/01/2025 8:20 PM EDT us Duong Vitale MD POINT OF CARE TEST ORDERABLES Final Result [facility] [address] [place] [address] * ECG AND WAVEFORMS - TELEMETRY (07/01/2025 7:05 PM EDT) [facility] ECG INTERPRET Sinus Arrythmia [facility] 07/01/2025 7:05 PM EDT Narrative [facility] - 07/01/2025 7:37 PM EDT ROUTINE/PAC/PVC/af [place] 0.18 QRS 0.09 RR 0.58 QT 0.35 QTc 0.46 See Clinical Report link for waveform capture us Unknown Provider POINT OF CARE CARDIOLOGY Final Result [facility] [address] [place] [address] * (ABNORMAL) GLUCOSE METER POC (07/01/2025 5:28 PM EDT) Glucose Meter POC 122(H) 70 - 100 mg/dL 07/01/2025 5:30 PM EDT [facility] Sample Type Capillary 07/01/2025 5:30 PM EDT [facility] Patient Status Non-Critical Patient 07/01/2025 5:30 PM EDT [facility] Blood BLOOD SPECIMEN / Unknown 07/01/2025 5:28 PM EDT 07/01/2025 5:30 PM EDT Duong Vitale MD POINT OF CARE TEST ORDERABLES Final Result Performing Organization Address [facility] Co de Phone Number [facility] [address] [place] [address] * (ABNORMAL) GLUCOSE METER POC (07/01/2025 11:44 AM EDT) Glucose Meter POC 143(H) 70 - 100 mg/dL 07/01/2025 11:45 AM EDT [facility] Sample Type Capillary 07/01/2025 11:45 AM EDT [facility] Patient Status Non-Critical Patient 07/01/2025 11:45 AM EDT [facility] Blood BLOOD SPECIMEN / Unknown 07/01/2025 11:44 AM EDT 07/01/2025 11:45 AM EDT Duong Vitale MD POINT OF CARE TEST ORDERABLES Final Result Performing Organization Address [facility] de Phone Number [facility] [address] [place] [address] * (ABNORMAL) COMPREHENSIVE METABOLIC PANEL (07/01/2025 10:56 AM EDT) Sodium 138 136 - 145 mmol/L 07/01/2025 11:22 AM EDT [facility] Potassium 3.6 3.5 - 5.0 mmol/L 07/01/2025 11:22 AM EDT [facility] Chloride 104 98 - 107 mmol/L 07/01/2025 11:22 AM EDT [facility] Total CO2 22 22 - 29 mmol/L 07/01/2025 11:22 AM EDT [facility] Anion Gap 12 7 - 16 mmol/L 07/01/2025 11:22 AM EDT [facility] Calcium 8.9 8.8 - 10.4 mg/dL 07/01/2025 11:22 AM EDT [facility] Glucose Lvl 128(H) 70 - 99 mg/dL 07/01/2025 11:22 AM EDT [facility] BUN 25(H) 8 - 23 mg/dL 07/01/2025 11:22 AM EDT [facility] Creatinine 0.82 0.51 - 1.30 mg/dL 07/01/2025 11:22 AM EDT [facility] Albumin 3.7 3.2 - 4.6 gm/dL 07/01/2025 11:22 AM EDT [facility] Total Protein 7.1 6.4 - 8.3 gm/dL 07/01/2025 11:22 AM EDT [facility] Bili Total 0.6 0.2 - 1.3 mg/dL 07/01/2025 11:22 AM EDT [facility] ALT 18 <=41 U/L 07/01/2025 11:22 AM EDT [facility] AST 35 <=40 U/L 07/01/2025 11:22 AM EDT [facility] Alk Phos 151(H) 36 - 123 U/L 07/01/2025 11:22 AM EDT [facility] eGFR (CKD-EPIcr 2020) 70 >=60 mL/min/1.7 3 m2 07/01/2025 11:22 AM EDT [facility] Comment:Estimated GFR was ca lculated using the CKD-EPIcr (2020) equation refit without race. The equation is recommended by the National Kidney Foundation - [place] Society of Nephrology Task Force. Blood VENOUS BLOOD / Unknown Venipuncture / Unknown 07/01/2025 10:56 AM EDT 07/01/2025 10:59 AM EDT us Jacob Horowitz MD CHEMISTRY ORDERABLES Final Resul t [facility] [address] [place] [address] * ECG AND WAVEFORMS - TELEMETRY (07/01/2025 7:07 AM EDT) ECG INTERPRET Atrial Fib [facility] 07/01/2025 7:07 AM EDT Narrative [facility] - 07/01/2025 7:32 AM EDT ROUTINE (AP) QRS 0.13 See Clinical Report link for waveform capture us Unknown Provider POINT OF CARE CARDIOLOGY Final Result Performing Organization Address City/[facility]/ZIP Co de Phone Number [facility] [address] [place] [address] * (ABNORMAL) GLUCOSE METER POC (06/30/2025 9:11 PM EDT) Glucose Meter POC 149(H) 70 - 100 mg/dL 06/30/2025 9:12 PM EDT [facility] Sample Type Capillary 06/30/2025 9:12 PM EDT [facility] Patient Status Non-Critical Patient 06/30/2025 9:12 PM EDT [facility] Blood BLOOD SPECIMEN / Unknown 06/30/2025 9:11 PM EDT 06/30/2025 9:12 PM EDT us Duong Vitale MD POINT OF CARE TEST ORDERABLES Final Result Performing Organization Address City/[facility]/ZIP Co de Phone Number [facility] [address] [place] [phone] * ECG AND WAVEFORMS - TELEMETRY (06/30/2025 7:00 PM EDT) [facility] ECG INTERPRET Atrial Flutter [facility] 06/30/2025 7:00 PM EDT Narrative [facility] - 06/30/2025 7:57 PM EDT Routine 1900/PVC QRS 0.09 See Clinical Report link for waveform capture us Unknown Provider POINT OF CARE CARDIOLOGY Final Result Performing Organization Address City/[facility]/ZIP Co de Phone Number [facility] [address] [place] [address] * (ABNORMAL) GLUCOSE METER POC (06/30/2025 4:26 PM EDT) Glucose Meter POC 145(H) 70 - 100 mg/dL 06/30/2025 4:27 PM EDT [facility] Sample Type Capillary 06/30/2025 4:27 PM EDT [facility] Patient Status Non-Critical Patient 06/30/2025 4:27 PM EDT [facility] Blood BLOOD SPECIMEN / Unknown 06/30/2025 4:26 PM EDT 06/30/2025 4:27 PM EDT Duong Vitale MD POINT OF CARE TEST ORDERABLES Final Result Performing Organization Address [facility] de Phone Number [facility] [address] [place] [address] * (ABNORMAL) GLUCOSE METER POC (06/30/2025 12:22 PM EDT) Glucose Meter POC 136(H) 70 - 100 mg/dL 06/30/2025 12:24 PM EDT [facility] Sample Type Capillary 06/30/2025 12:24 PM EDT [facility] Patient Status Non-Critical Patient 06/30/2025 12:24 PM EDT [facility] Blood BLOOD SPECIMEN / Unknown 06/30/2025 12:22 PM EDT 06/30/2025 12:24 PM EDT us Duong Vitale MD POINT OF CARE TEST ORDERABLES Final Result Performing Organization Address City/[facility] de Phone Number [facility] [address] [place] [address] * (ABNORMAL) COMPREHENSIVE METABOLIC PANEL (06/30/2025 10:18 AM EDT) Sodium 140 136 - 145 mmol/L 06/30/2025 10:49 AM EDT [facility] Potassium 3.7 3.5 - 5.0 mmol/L 06/30/2025 10:49 AM EDT [facility] Chloride 105 98 - 107 mmol/L 06/30/2025 10:49 AM EDT [facility] Total CO2 25 22 - 29 mmol/L 06/30/2025 10:49 AM EDT [facility] Anion Gap 10 7 - 16 mmol/L 06/30/2025 10:49 AM EDT [facility] Calcium 8.8 8.8 - 10.4 mg/dL 06/30/2025 10:49 AM EDT [facility] Glucose Lvl 120(H) 70 - 99 mg/dL 06/30/2025 10:49 AM EDT [facility] BUN 21 8 - 23 mg/dL 06/30/2025 10:49 AM EDT [facility] Creatinine 0.83 0.51 - 1.30 mg/dL 06/30/2025 10:49 AM EDT [facility] Albumin 3.6 3.2 - 4.6 gm/dL 06/30/2025 10:49 AM EDT [facility] Total Protein 6.8 6.4 - 8.3 gm/dL 06/30/2025 10:49 AM EDT [facility] Bili Total 0.5 0.2 - 1.3 mg/dL 06/30/2025 10:49 AM EDT [facility] ALT 19 <=41 U/L 06/30/2025 10:49 AM EDT [facility] AST 35 <=40 U/L 06/30/2025 10:49 AM EDT [facility] Alk Phos 145(H) 36 - 123 U/L 06/30/2025 10:49 AM EDT [facility] eGFR (CKD-EPIcr 2020) 69 >=60 mL/min/1.7 3 m2 06/30/2025 10:49 AM EDT [facility] Comment:Estimated GFR was ca lculated using the CKD-EPIcr (2020) equation refit without race. The equation is recommended by the National Kidney Foundation - [place] [employer] of Nephrology Task Force. Blood VENOUS BLOOD / Unknown Venipuncture / Unknown 06/30/2025 10:18 AM EDT 06/30/2025 10:23 AM EDT us Jacob Horowitz MD CHEMISTRY ORDERABLES Final Resul t [facility] [address] [place] [address] * (ABNORMAL) GLUCOSE METER POC (06/30/2025 8:26 AM EDT) Glucose Meter POC 114(H) 70 - 100 mg/dL 06/30/2025 8:27 AM EDT [facility] Sample Type Capillary 06/30/2025 8:27 AM EDT [facility] Patient Status Non-Critical Patient 06/30/2025 8:27 AM EDT [facility] Blood BLOOD SPECIMEN / Unknown 06/30/2025 8:26 AM EDT 06/30/2025 8:27 AM EDT us Duong Vitale MD POINT OF CARE TEST ORDERABLES Final Result [facility] [address] [place] [address] * ECG AND WAVEFORMS - TELEMETRY (06/30/2025 7:03 AM EDT) ECG INTERPRET Atrial Fib [facility] Comment:with a pvc 06/30/2025 7:03 AM EDT Narrative [facility] - 06/30/2025 7:39 AM EDT ROUTINE W/ PVC (AP) QRS 0.10 See Clinical Report link for waveform capture us Unknown Provider POINT OF CARE CARDIOLOGY Final Result [facility] [address] [place] [address] * (ABNORMAL) GLUCOSE METER POC (06/29/2025 9:25 PM EDT) Glucose Meter POC 134(H) 70 - 100 mg/dL 06/29/2025 9:27 PM EDT [facility] Sample Type Capillary 06/29/2025 9:27 PM EDT [facility] Patient Status Non-Critical Patient 06/29/2025 9:27 PM EDT [facility] Blood BLOOD SPECIMEN / Unknown 06/29/2025 9:25 PM EDT 06/29/2025 9:27 PM EDT Duong Vitale MD POINT OF CARE TEST ORDERABLES Final Result Performing Organization Address City/[facility] Co de Phone Number [facility] [address] [place] [address] * ECG AND WAVEFORMS - TELEMETRY (06/29/2025 7:00 PM EDT) [facility] ECG INTERPRET Atrial Flutter [facility] 06/29/2025 7:00 PM EDT Narrative [facility] - 06/29/2025 9:49 PM EDT Routine 1900/Quadgem PVC/qj QRS 0.10 See Clinical Report link for waveform capture us Unknown Provider POINT OF CARE CARDIOLOGY Final Result Performing Organization Address [facility] de Phone Number [facility] [address] [place] [address] * (ABNORMAL) GLUCOSE METER POC (06/29/2025 5:50 PM EDT) [facility] Glucose Meter POC 185(H) 70 - 100 mg/dL 06/29/2025 5:52 PM EDT [facility] Sample Type Capillary 06/29/2025 5:52 PM EDT [facility] Patient Status Non-Critical Patient 06/29/2025 5:52 PM EDT [facility] Blood BLOOD SPECIMEN / Unknown 06/29/2025 5:50 PM EDT 06/29/2025 5:52 PM EDT Duong Vitale MD POINT OF CARE TEST ORDERABLES Final Result Performing Organization Address City/[facility] Co de Phone Number [facility] [address] [place] [address] * (ABNORMAL) COMPREHENSIVE METABOLIC PANEL (06/29/2025 11:22 AM EDT) Pathologist [facility] Sodium 139 136 - 145 mmol/L 06/29/2025 11:57 AM [facility] Potassium 4.1 3.5 - 5.0 mmol/L 06/29/2025 11:57 AM [facility] Chloride 106 98 - 107 mmol/L 06/29/2025 11:57 AM [facility] Total CO2 21(L) 22 - 29 mmol/L 06/29/2025 11:57 AM [facility] Anion Gap 12 7 - 16 mmol/L 06/29/2025 11:57 AM [facility] Calcium 8.9 8.8 - 10.4 mg/dL 06/29/2025 11:57 AM [facility] Glucose Lvl 140(H) 70 - 99 mg/dL 06/29/2025 11:57 AM [facility] BUN 17 8 - 23 mg/dL 06/29/2025 11:57 AM [facility] Creatinine 0.74 0.51 - 1.30 mg/dL 06/29/2025 11:57 AM [facility] Albumin 3.7 3.2 - 4.6 gm/dL 06/29/2025 11:57 AM [facility] Total Protein 7.1 6.4 - 8.3 gm/dL 06/29/2025 11:57 AM [facility] Bili Total 0.6 0.2 - 1.3 mg/dL 06/29/2025 11:57 AM [facility] ALT 16 <=41 U/L 06/29/2025 11:57 AM [facility] AST 39 <=40 U/L 06/29/2025 11:57 AM [facility] Alk Phos 143(H) 36 - 123 U/L 06/29/2025 11:57 AM [facility] eGFR (CKD-EPIcr 2020) 79 >=60 mL/min/1.7 3 m2 06/29/2025 11:57 AM [facility] Comment:Estimated GFR was ca lculated using the CKD-EPIcr (2020) equation refit without race. The equation is recommended by the National Kidney Foundation - [place] Society of Nephrology Task Force. Blood VENOUS BLOOD / Unknown Venipuncture / Unknown 06/29/2025 11:22 AM EDT 06/29/2025 11:36 AM EDT Jacob Horowitz MD CHEMISTRY ORDERABLES Final Resul t Performing Organization Address [facility] Co de Phone Number [facility] [address] [place] [address] * (ABNORMAL) GLUCOSE METER POC (06/29/2025 10:28 AM EDT) Glucose Meter POC 113(H) 70 - 100 mg/dL 06/29/2025 10:29 AM EDT [facility] Sample Type Capillary 06/29/2025 10:29 AM EDT [facility] Patient Status Non-Critical Patient 06/29/2025 10:29 AM EDT [facility] Blood BLOOD SPECIMEN / Unknown 06/29/2025 10:28 AM EDT 06/29/2025 10:29 AM EDT us Duong Vitale MD POINT OF CARE TEST ORDERABLES Final Result Performing Organization Address [facility] de Phone Number [facility] [address] [place] [address] * ECG AND WAVEFORMS - TELEMETRY (06/29/2025 7:03 AM EDT) ECG INTERPRET Atrial Fib [facility] 06/29/2025 7:03 AM EDT Narrative [facility] - 06/29/2025 7:25 AM EDT ROUTINE-BB See Clinical Report link for waveform capture us Unknown Provider POINT OF CARE CARDIOLOGY Final Result Performing Organization Address City/[facility] Co de Phone Number [facility] [address] [place] [address] * ECG AND WAVEFORMS - TELEMETRY (06/29/2025 5:17 AM EDT) ECG INTERPRET Atrial Fib [facility] 06/29/2025 5:17 AM EDT Narrative [facility] - 06/29/2025 5:18 AM EDT ADMIT W/ PVCS (JM) QRS 0.06 See Clinical Report link for waveform capture us Unknown Provider POINT OF CARE CARDIOLOGY Final Result Performing Organization Address City/[facility]/ZIP Co de Phone Number [facility] [address] [place] [address] * (ABNORMAL) GLUCOSE METER POC (06/28/2025 10:06 PM EDT) Glucose Meter POC 154(H) 70 - 100 mg/dL 06/28/2025 10:07 PM EDT [facility] Sample Type Capillary 06/28/2025 10:07 PM EDT [facility] Patient Status Non-Critical Patient 06/28/2025 10:07 PM EDT [facility] Blood BLOOD SPECIMEN / Unknown 06/28/2025 10:06 PM EDT 06/28/2025 10:07 PM EDT us Duong Vitale MD POINT OF CARE TEST ORDERABLES Final Result Performing Organization Address City/[facility]/ZIP Co de Phone Number [facility] [address] [place] [address] * ECG AND WAVEFORMS - TELEMETRY (06/28/2025 7:21 PM EDT) ECG INTERPRET Atrial Fib [facility] Comment:with PVC. 06/28/2025 7:21 PM EDT Narrative [facility] - 06/28/2025 7:23 PM EDT ROUTINE (JM) QRS 0.07 See Clinical Report link for waveform capture us Unknown Provider POINT OF CARE CARDIOLOGY Final Result Performing Organization Address City/[facility]/ZIP Co de Phone Number [facility] [address] [place] [address] * (ABNORMAL) GLUCOSE METER POC (06/28/2025 5:07 PM EDT) Glucose Meter POC 136(H) 70 - 100 mg/dL 06/28/2025 5:09 PM EDT [facility] Sample Type Capillary 06/28/2025 5:09 PM EDT [facility] Patient Status Non-Critical Patient 06/28/2025 5:09 PM EDT [facility] Blood BLOOD SPECIMEN / Unknown 06/28/2025 5:07 PM EDT 06/28/2025 5:09 PM EDT Duong Vitale MD POINT OF CARE TEST ORDERABLES Final Result Performing Organization Address City/[facility]/ZIP Co de Phone Number [facility] [address] [place] [address] * (ABNORMAL) GLUCOSE METER POC (06/28/2025 12:03 PM EDT) Glucose Meter POC 179(H) 70 - 100 mg/dL 06/28/2025 12:05 PM EDT [facility] Sample Type Capillary 06/28/2025 12:05 PM EDT [facility] Patient Status Non-Critical Patient 06/28/2025 12:05 PM EDT [facility] Blood BLOOD SPECIMEN / Unknown 06/28/2025 12:03 PM EDT 06/28/2025 12:05 PM EDT Duong Vitale MD POINT OF CARE TEST ORDERABLES Final Result Performing Organization Address City/[facility]/ZIP Co de Phone Number [facility] [address] [place] [address] * (ABNORMAL) COMPREHENSIVE METABOLIC PANEL (06/28/2025 11:26 AM EDT) Sodium 139 136 - 145 mmol/L 06/28/2025 11:55 AM EDT [facility] Potassium 4.0 3.5 - 5.0 mmol/L 06/28/2025 11:55 AM EDT [facility] Chloride 106 98 - 107 mmol/L 06/28/2025 11:55 AM EDT [facility] Total CO2 23 22 - 29 mmol/L 06/28/2025 11:[facility] Anion Gap 10 7 - 16 mmol/L 06/28/2025 11:55 [facility] Calcium 8.6(L) 8.8 - 10.4 mg/dL 06/28/2025 11:55 [facility] Glucose Lvl 161(H) 70 - 99 mg/dL 06/28/2025 11:55 [facility] BUN 15 8 - 23 mg/dL 06/28/2025 11:55 AM [facility] Creatinine 0.80 0.51 - 1.30 mg/dL 06/28/2025 11:55 [facility] Albumin 3.7 3.2 - 4.6 gm/dL 06/28/2025 11:55 AM [facility] Total Protein 6.8 6.4 - 8.3 gm/dL 06/28/2025 11:55 AM [facility] Bili Total 0.6 0.2 - 1.3 mg/dL 06/28/2025 11:55 AM [facility] ALT 16 <=41 U/L 06/28/2025 11:55 AM [facility] AST 32 <=40 U/L 06/28/2025 11:55 AM [facility] Alk Phos 143(H) 36 - 123 U/L 06/28/2025 11:55 AM [facility] eGFR (CKD-EPIcr 2020) 72 >=60 mL/min/1.7 3 m2 06/28/2025 11:55 AM [facility] Comment:Estimated GFR was ca lculated using the CKD-EPIcr (2020) equation refit without race. The equation is recommended by the National Kidney Foundation - [place] [employer] Nephrology Task Force. Blood VENOUS BLOOD / Unknown Venipuncture / Unknown 06/28/2025 11:26 AM EDT 06/28/2025 11:30 AM EDT Jacob Horowitz MD CHEMISTRY ORDERABLES Final Resul t Performing Organization Address [facility] de Phone Number [facility] [address] [place] [address] * PHOSPHORUS LEVEL (06/28/2025 11:26 AM EDT) Phosphorus 2.6 2.5 - 4.5 mg/dL 06/28/2025 11:55 AM EDT [facility] Blood VENOUS BLOOD / Unknown Venipuncture / Unknown 06/28/2025 11:26 AM EDT 06/28/2025 11:30 AM EDT us Jaocb Horowitz MD CHEMISTRY ORDERABLES Final Resul t Performing Organization Address [facility] de Phone Number [facility] [address] [place] [address] * MAGNESIUM LEVEL (06/28/2025 11:26 AM EDT) Pathologist [facility] Magnesium 1.8 1.6 - 2.4 mg/dL 06/28/2025 12:04 PM EDT [facility] Blood VENOUS BLOOD / Unknown Venipuncture / Unknown 06/28/2025 11:26 AM EDT 06/28/2025 11:30 AM EDT us Jacob Horowitz MD CHEMISTRY ORDERABLES Final Resul t Performing Organization Address [facility] de Phone Number [facility] [address] [place] [address] * (ABNORMAL) CBC WITH DIFF (06/28/2025 11:26 AM EDT) WBC 4.3 3.7 - 10.3 x10(3)/mcL 06/28/2025 11:33 AM EDT [facility] RBC 2.62(L) 3.90 - 5.20 x10(6)/mcL 06/28/2025 11:33 AM EDT [facility] Hgb 9.7(L) 11.2 - 15.7 g/dL 06/28/2025 11:[facility] Hct 30.2(L) 34.0 - 45.0 % 06/28/2025 11:33 AM EDT [facility] MCV 115.3(H) 80.0 - 100.0 fL 06/28/2025 11:33 AM EDT [facility] MCH 37.0(H) 26.0 - 34.0 pg 06/28/2025 11:33 [facility] MCHC 32.1 30.7 - 35.5 g/dL 06/28/2025 11:33 AM EDT [facility] RDW 18.9(H) <=14.9 % 06/28/2025 11:33 [facility] Platelet 86(L) 155 - 369 x10(3)/mcL 06/28/2025 11:33 AM [facility] MPV 11.8 8.8 - 12.5 fL 06/28/2025 11:33 AM [facility] Neut Percent 52.1 % 06/28/2025 11:33 AM EDT [facility] Comment:Neutrophils equals s egs plus bands Imm Gran% 0.5 % 06/28/2025 11:33 AM [facility] Comment:Automated count of m etamyelocytes, myelocytes and promyelocytes. Lymph Percent 40.1 % 06/28/2025 11:33 AM [facility] Mcminn Percent 6.6 % 06/28/2025 11:33 AM [facility] Eos Percent 0.2 % 06/28/2025 11:33 AM [facility] Baso Percent 0.5 % 06/28/2025 11:33 AM [facility] Neut # 2.2 1.6 - 6.1 x10(3)/mcL 06/28/2025 11:33 [facility] Comment:Neutrophils equals s egs plus bands IMMGRAN# 0.0 0.0 - 0.1 x10(3)/mcL 06/28/2025 11:33 AM [facility] Comment:Automated count of m etamyelocytes, myelocytes and promyelocytes. An absolute IG <0.1 is reported as 0.0. Lymph # 1.7 1.2 - 3.9 x10(3)/[facility] 06/28/2025 11:33 AM EDT [facility] Mcminn # 0.3 0.3 - 0.9 x10(3)/[facility] 06/28/2025 11:33 AM EDT [facility] Eos# 0.0 0.0 - 0.5 x10(3)/[facility] 06/28/2025 11:33 AM EDT [facility] Baso # 0.0 0.0 - 0.1 x10(3)/[facility] 06/28/2025 11:33 AM EDT [facility] Blood VENOUS BLOOD / Unknown Venipuncture / Unknown 06/28/2025 11:26 AM EDT 06/28/2025 11:30 AM EDT us Jacob Horowitz MD HEMATOLOGY ORDERABLES Final Resu lt Performing Organization Address City/[facility] de Phone Number [facility] [address] [place] [address] * (ABNORMAL) GLUCOSE METER POC (06/28/2025 8:20 AM EDT) [facility] Glucose Meter POC 104(H) 70 - 100 mg/dL 06/28/2025 8:21 AM EDT [facility] Sample Type Capillary 06/28/2025 8:21 AM EDT [facility] Patient Status Non-Critical Patient 06/28/2025 8:21 AM EDT [facility] Blood BLOOD SPECIMEN / Unknown 06/28/2025 8:20 AM EDT 06/28/2025 8:21 AM EDT us Duong Vitale MD POINT OF CARE TEST ORDERABLES Final Result Performing Organization Address [facility] de Phone Number [facility] [address], [place] [id number] * ECG AND WAVEFORMS - TELEMETRY (06/28/2025 7:00 AM EDT) [facility] ECG INTERPRET Atrial Fib [facility] 06/28/2025 7:00 AM EDT Narrative [facility] - 06/28/2025 7:40 AM EDT ECB - ROUTINE QRS 0.11 See Clinical Report link for waveform capture us Unknown Provider POINT OF CARE CARDIOLOGY Final Result [facility] [address] [place] [address] * (ABNORMAL) GLUCOSE METER POC (06/28/2025 12:13 AM EDT) Glucose Meter POC 133(H) 70 - 100 mg/dL 06/28/2025 12:14 AM EDT [facility] Sample Type Capillary 06/28/2025 12:14 AM EDT [facility] Patient Status Non-Critical Patient 06/28/2025 12:14 AM EDT [facility] Blood BLOOD SPECIMEN / Unknown 06/28/2025 12:13 AM EDT 06/28/2025 12:14 AM EDT Duong Vitale MD POINT OF CARE TEST ORDERABLES Final Result Performing Organization Address City/[facility]/ZIP Co de Phone Number [facility] [address] [place] [phone] * (ABNORMAL) GLUCOSE METER POC (06/27/2025 8:12 PM EDT) [facility] Signature Glucose Meter POC 141(H) 70 - 100 mg/dL 06/27/2025 8:14 PM EDT [facility] Sample Type Capillary 06/27/2025 8:14 PM EDT [facility] Patient Status Non-Critical Patient 06/27/2025 8:14 PM EDT [facility] Blood BLOOD SPECIMEN / Unknown 06/27/2025 8:12 PM EDT 06/27/2025 8:14 PM EDT Duong Vitale MD POINT OF CARE TEST ORDERABLES Final Result Performing Organization Address City/State/[facility] Co de Phone Number [facility] [address] [place] [address] * ECG AND WAVEFORMS - TELEMETRY (06/27/2025 7:22 PM EDT) ECG INTERPRET Atrial Fib [facility] 06/27/2025 7:22 PM EDT Narrative [facility] - 06/27/2025 7:25 PM EDT ROUTINE/ PVCS (JM) QRS 0.08 See Clinical Report link for waveform capture us Unknown Provider POINT OF CARE CARDIOLOGY Final Result Performing Organization Address [facility] de Phone Number [facility] [address] [place] [address] * (ABNORMAL) GLUCOSE METER POC (06/27/2025 5:34 PM EDT) Glucose Meter POC 184(H) 70 - 100 mg/dL 06/27/2025 5:35 PM EDT [facility] Sample Type Capillary 06/27/2025 5:35 PM EDT [facility] Patient Status Non-Critical Patient 06/27/2025 5:35 PM EDT [facility] Blood BLOOD SPECIMEN / Unknown 06/27/2025 5:34 PM EDT 06/27/2025 5:35 PM EDT us Duong Vitale MD POINT OF CARE TEST ORDERABLES Final Result Performing Organization Address [facility] de Phone Number [facility] [address] [place] [address] * (ABNORMAL) GLUCOSE METER POC (06/27/2025 11:48 AM EDT) Glucose Meter POC 119(H) 70 - 100 mg/dL 06/27/2025 11:49 AM EDT [facility] Sample Type Capillary 06/27/2025 11:49 AM EDT [facility] Patient Status Non-Critical Patient 06/27/2025 11:49 AM EDT [facility] Blood BLOOD SPECIMEN / Unknown 06/27/2025 11:48 AM EDT 06/27/2025 11:49 AM EDT Duong Vitale MD POINT OF CARE TEST ORDERABLES Final Result Performing Organization Address City/[facility] Co de Phone Number [facility] [address] [place] [address] * (ABNORMAL) GLUCOSE METER POC (06/27/2025 9:02 AM EDT) Glucose Meter POC 121(H) 70 - 100 mg/dL 06/27/2025 9:04 AM EDT [facility] Sample Type Capillary 06/27/2025 9:04 AM EDT [facility] Patient Status Non-Critical Patient 06/27/2025 9:04 AM EDT [facility] Blood BLOOD SPECIMEN / Unknown 06/27/2025 9:02 AM EDT 06/27/2025 9:04 AM EDT Duong Vitale MD POINT OF CARE TEST ORDERABLES Final Result Performing Organization Address [facility] de Phone Number [facility] [address] [place] [address] * EXTRA LAVENDER (06/27/2025 8:28 AM EDT) Blood VENOUS BLOOD / Unknown Venipuncture / Unknown 06/27/2025 8:28 AM EDT 06/27/2025 8:36 AM EDT Duong Vitale MD HEMATOLOGY ORDERABLES Final R esult Performing Organization Address City/[facility] Co de Phone Number [facility] [address] [place] [address] * (ABNORMAL) BASIC METABOLIC PANEL (06/27/2025 8:28 AM EDT) Sodium 138 136 - 145 mmol/L 06/27/2025 8:56 AM EDT [facility] Potassium 4.1 3.5 - 5.0 mmol/L 06/27/2025 8:56 AM EDT [facility] Chloride 106 98 - 107 mmol/L 06/27/2025 8:56 AM EDT [facility] Total CO2 21(L) 22 - 29 mmol/L 06/27/2025 8:56 AM EDT [facility] Anion Gap 11 7 - 16 mmol/L 06/27/2025 8:56 AM EDT [facility] Calcium 8.3(L) 8.8 - 10.4 mg/dL 06/27/2025 8:56 AM EDT [facility] Glucose Lvl 112(H) 70 - 99 mg/dL 06/27/2025 8:56 AM EDT [facility] BUN 13 8 - 23 mg/dL 06/27/2025 8:56 AM EDT [facility] Creatinine 0.86 0.51 - 1.30 mg/dL 06/27/2025 8:56 AM EDT [facility] eGFR (CKD-EPIcr 2020) 66 >=60 mL/min/1.7 3 m2 06/27/2025 8:56 AM EDT [facility] Comment:Estimated GFR was ca lculated using the CKD-EPIcr (2020) equation refit without race. The equation is recommended by the National Kidney Foundation - [place] [employer] of Nephrology Task Force. Blood VENOUS BLOOD / Unknown Venipuncture / Unknown 06/27/2025 8:28 AM EDT 06/27/2025 8:35 AM EDT us Lianet Harris [employer] CHEMISTRY ORDERABLES Fi nal Result [facility] [address] [place] [address] * ECG AND WAVEFORMS - TELEMETRY (06/27/2025 7:00 AM EDT) ECG INTERPRET Atrial Fib [facility] 06/27/2025 7:00 AM EDT Narrative [facility] - 06/27/2025 7:38 AM EDT ECB - ROUTINE QRS 0.12 See Clinical Report link for waveform capture us Unknown Provider POINT OF CARE CARDIOLOGY Final Result Performing Organization Address City/[facility]/ZIP Co de Phone Number [facility] [address] [place] [address] * (ABNORMAL) GLUCOSE METER POC (06/27/2025 5:39 AM EDT) Glucose Meter POC 105(H) 70 - 100 mg/dL 06/27/2025 5:41 AM EDT [facility] Sample Type Capillary 06/27/2025 5:41 AM EDT [facility] Patient Status Non-Critical Patient 06/27/2025 5:41 AM EDT [facility] Blood BLOOD SPECIMEN / Unknown 06/27/2025 5:39 AM EDT 06/27/2025 5:41 AM EDT Duong Vitale MD POINT OF CARE TEST ORDERABLES Final Result Performing Organization Address [facility] Co de Phone Number [facility] [address] [place] [address] * (ABNORMAL) GLUCOSE METER POC (06/27/2025 12:32 AM EDT) Glucose Meter POC 118(H) 70 - 100 mg/dL 06/27/2025 12:33 AM EDT [facility] Sample Type Capillary 06/27/2025 12:33 AM EDT [facility] Patient Status Non-Critical Patient 06/27/2025 12:33 AM EDT [facility] Blood BLOOD SPECIMEN / Unknown 06/27/2025 12:32 AM EDT 06/27/2025 12:33 AM EDT Duong Vitale MD POINT OF CARE TEST ORDERABLES Final Result Performing Organization Address City/[facility] Co de Phone Number [facility] [address] [place] [address] * (ABNORMAL) GLUCOSE METER POC (06/26/2025 8:15 PM EDT) Glucose Meter POC 137(H) 70 - 100 mg/dL 06/26/2025 8:17 PM EDT [facility] Sample Type Capillary 06/26/2025 8:17 PM EDT [facility] Patient Status Non-Critical Patient 06/26/2025 8:17 PM EDT [facility] Blood BLOOD SPECIMEN / Unknown 06/26/2025 8:15 PM EDT 06/26/2025 8:17 PM EDT Duong Vitale MD POINT OF CARE TEST ORDERABLES Final Result [facility] [address] [place] [address] * ECG AND WAVEFORMS - TELEMETRY (06/26/2025 7:52 PM EDT) ECG INTERPRET Atrial Fib [facility] 06/26/2025 7:52 PM EDT Narrative [facility] - 06/26/2025 7:54 PM EDT TW/ROUTINE QRS 0.10 See Clinical Report link for waveform capture us Unknown Provider POINT OF CARE CARDIOLOGY Final Result [facility] [address] [place] [address] * (ABNORMAL) GLUCOSE METER POC (06/26/2025 5:59 PM EDT) Glucose Meter POC 161(H) 70 - 100 mg/dL 06/26/2025 6:01 PM EDT [facility] Sample Type Capillary 06/26/2025 6:01 PM EDT [facility] Patient Status Non-Critical Patient 06/26/2025 6:01 PM EDT [facility] Blood BLOOD SPECIMEN / Unknown 06/26/2025 5:59 PM EDT 06/26/2025 6:01 PM EDT us Duong Vitale MD POINT OF CARE TEST ORDERABLES Final Result [facility] [address] [place] [id number] * ECG AND WAVEFORMS - TELEMETRY (06/26/2025 5:10 PM EDT) [facility] ECG INTERPRET Atrial Fib [facility] 06/26/2025 5:10 PM EDT Narrative [facility] - 06/26/2025 5:10 PM EDT See Clinical Report link for waveform capture us Unknown Provider POINT OF CARE CARDIOLOGY Final Result Performing Organization Address [facility] Co de Phone Number [facility] [address] [place] [address] * (ABNORMAL) CBC WITH DIFF (06/26/2025 2:27 PM EDT) [facility] WBC 4.1 3.7 - 10.3 x10(3)/mcL 06/26/2025 2:36 PM EDT [facility] RBC 2.51(L) 3.90 - 5.20 x10(6)/mcL 06/26/2025 2:36 PM EDT [facility] Hgb 9.3(L) 11.2 - 15.7 g/dL 06/26/2025 2:36 PM EDT [facility] Hct 27.7(L) 34.0 - 45.0 % 06/26/2025 2:36 PM EDT [facility] MCV 110.4(H) 80.0 - 100.0 fL 06/26/2025 2:36 PM EDT [facility] MCH 37.1(H) 26.0 - 34.0 pg 06/26/2025 2:36 PM EDT [facility] MCHC 33.6 30.7 - 35.5 g/dL 06/26/2025 2:36 PM EDT [facility] RDW 19.5(H) <=14.9 % 06/26/2025 2:36 PM EDT [facility] Platelet 94(L) 155 - 369 x10(3)/mcL 06/26/2025 2:36 PM EDT [facility] MPV 12.1 8.8 - 12.5 fL 06/26/2025 2:36 PM EDT [facility] Neut Percent 58.8 % 06/26/2025 2:36 PM EDT [facility] Comment:Neutrophils equals s egs plus bands Imm Gran% 0.5 % 06/26/2025 2:36 PM EDT [facility] Comment:Automated count of m etamyelocytes, myelocytes and promyelocytes. Lymph Percent 32.9 % 06/26/2025 2:36 PM EDT [facility] Mcminn Percent 7.3 % 06/26/2025 2:36 PM EDT [facility] Eos Percent 0.0 % 06/26/2025 2:36 PM EDT [facility] Baso Percent 0.5 % 06/26/2025 2:36 PM EDT [facility] Neut # 2.4 1.6 - 6.1 x10(3)/[facility] 06/26/2025 2:36 PM EDT [facility] Comment:Neutrophils equals s egs plus bands IMMGRAN# 0.0 0.0 - 0.1 x10(3)/[facility] 06/26/2025 2:36 PM EDT [facility] Comment:Automated count of m etamyelocytes, myelocytes and promyelocytes. An absolute IG <0.1 is reported as 0.0. Lymph # 1.4 1.2 - 3.9 x10(3)/[facility] 06/26/2025 2:36 PM EDT [facility] Mcminn # 0.3 0.3 - 0.9 x10(3)/[facility] 06/26/2025 2:36 PM EDT [facility] Eos# 0.0 0.0 - 0.5 x10(3)/[facility] 06/26/2025 2:36 PM EDT [facility] Baso # 0.0 0.0 - 0.1 x10(3)/[facility] 06/26/2025 2:36 PM EDT [facility] Blood VENOUS BLOOD / Unknown Venipuncture / Unknown 06/26/2025 2:27 PM EDT 06/26/2025 2:34 PM EDT us Jacob Horowitz MD HEMATOLOGY ORDERABLES Final Resu lt Performing Organization Address City/[facility]/ZIP Co de Phone Number [facility] [address] [place] [address] * POTASSIUM LEVEL (06/26/2025 2:27 PM EDT) Potassium 4.5 3.5 - 5.0 mmol/L 06/26/2025 2:46 PM EDT [facility] Blood VENOUS BLOOD / Unknown Venipuncture / Unknown 06/26/2025 2:27 PM EDT 06/26/2025 2:34 PM EDT us Jacob Horowitz MD CHEMISTRY ORDERABLES Final Resul t Performing Organization Address [facility] Co de Phone Number [facility] [address] [place] [address] * US RENAL AND BLADDER (06/26/2025 12:44 [...] evaluation of the kidneys and bladder with representative government relations images and battery hand notes sent to PACS for radiologist review. [...] sonographic evaluation of the kidneys andbladder with representative government relations images and battery hand notes sent to PACS forradiologist review. FINDINGS: [...] please contactthe office of the ordering clinician. Antoine Ferraro PA-C IM US ORDERABLES F inal Result * (ABNORMAL) GLUCOSE METER POC (06/26/2025 12:39 PM EDT) [facility] Glucose Meter POC 119(H) 70 - 100 mg/dL 06/26/2025 12:40 PM EDT [facility] Sample Type Capillary 06/26/2025 12:40 PM EDT [facility] Patient Status Non-Critical Patient 06/26/2025 12:40 PM EDT [facility] Blood BLOOD SPECIMEN / Unknown 06/26/2025 12:39 PM EDT 06/26/2025 12:40 PM EDT Duong Vitale MD POINT OF CARE TEST ORDERABLES Final Result [facility] [address] [place] [id number] * ECG AND WAVEFORMS - TELEMETRY (06/26/2025 7:51 AM EDT) Pathologist [facility] ECG INTERPRET Atrial Fib [facility] 06/26/2025 7:51 AM EDT Narrative [facility] - 06/26/2025 7:51 AM EDT See Clinical Report link for waveform capture us Unknown Provider POINT OF CARE CARDIOLOGY Final Result Performing Organization Address [facility] Co de Phone Number [facility] [address] [place] [address] * (ABNORMAL) BASIC METABOLIC PANEL (06/26/2025 6:31 AM EDT) [facility] Sodium 138 136 - 145 mmol/L 06/26/2025 7:09 AM EDT [facility] Potassium 3.9 3.5 - 5.0 mmol/L 06/26/2025 7:09 AM EDT [facility] Chloride 106 98 - 107 mmol/L 06/26/2025 7:09 AM EDT [facility] Total CO2 22 22 - 29 mmol/L 06/26/2025 7:09 AM EDT [facility] Anion Gap 10 7 - 16 mmol/L 06/26/2025 7:09 AM EDT [facility] Calcium 8.3(L) 8.8 - 10.4 mg/dL 06/26/2025 7:09 AM EDT [facility] Glucose Lvl 95 70 - 99 mg/dL 06/26/2025 7:09 AM EDT [facility] BUN 13 8 - 23 mg/dL 06/26/2025 7:09 AM EDT [facility] Creatinine 0.87 0.51 - 1.30 mg/dL 06/26/2025 7:09 AM EDT [facility] eGFR (CKD-EPIcr 2020) 65 >=60 mL/min/1.7 3 m2 06/26/2025 7:09 AM EDT [facility] Comment:Estimated GFR was ca lculated using the CKD-EPIcr (2020) equation refit without race. The equation is recommended by the [employer] - [place] [employer] Task Force. Blood VENOUS BLOOD / Unknown Venipuncture / Unknown 06/26/2025 6:31 AM EDT 06/26/2025 6:37 AM EDT Spencer Luna APRN CHEMISTRY ORDERABLES Fin al Result Performing Organization Address [facility] de Phone Number [facility] [address] [place] [address] * (ABNORMAL) NT PROBNP (06/26/2025 6:31 AM EDT) NT Pro-BNP 7,743(H) <=624 pg/mL 06/26/2025 7:09 AM EDT [facility] Blood VENOUS BLOOD / Unknown Venipuncture / Unknown 06/26/2025 6:31 AM EDT 06/26/2025 6:37 AM EDT Narrative [facility] - 06/26/2025 7:09 AM EDT An NT pro-BNP level less than 300 pg/mL in any patient, regardless of age, effectively rules out acute CHF with a 99% negative predictive value. Ingestion of angie doses of biotin (>5 mg/day) taken within 8 hours of drawing blood sample can interfere with this immunoassay test. Duong Vitale MD CHEMISTRY ORDERABLES Final Re sult Performing Organization Address [facility] de Phone Number [facility] [address] [place] [address] * (ABNORMAL) CBC (06/26/2025 6:31 AM EDT) WBC 4.6 3.7 - 10.3 x10(3)/mcL 06/26/2025 6:42 AM EDT [facility] RBC 2.48(L) 3.90 - 5.20 x10(6)/mcL 06/26/2025 6:42 AM EDT [facility] Hgb 9.0(L) 11.2 - 15.7 g/dL 06/26/2025 6:42 AM EDT [facility] Hct 27.4(L) 34.0 - 45.0 % 06/26/2025 6:42 AM EDT [facility] MCV 110.5(H) 80.0 - 100.0 fL 06/26/2025 6:42 AM EDT [facility] MCH 36.3(H) 26.0 - 34.0 pg 06/26/2025 6:42 AM EDT [facility] MCHC 32.8 30.7 - 35.5 g/dL 06/26/2025 6:42 AM EDT [facility] LABORATORY RDW 19.3(H) <=14.9 % 06/26/2025 6:42 AM EDT [facility] Platelet 87(L) 155 - 369 x10(3)/mcL 06/26/2025 6:42 AM EDT [facility] MPV 12.9(H) 8.8 - 12.5 fL 06/26/2025 6:42 AM EDT [facility] Blood VENOUS BLOOD / Unknown Venipuncture / Unknown 06/26/2025 6:31 AM EDT 06/26/2025 6:37 AM EDT us Duong Vitale MD HEMATOLOGY ORDERABLES Final R esult Performing Organization Address City/State/[facility] Co de Phone Number [facility] [address] [place] [address] * GLUCOSE METER POC (06/26/2025 6:30 AM EDT) [facility] Glucose Meter POC 92 70 - 100 mg/dL 06/26/2025 6:32 AM EDT [facility] Sample Type Capillary 06/26/2025 6:32 AM EDT [facility] Patient Status Non-Critical Patient 06/26/2025 6:32 AM EDT [facility] Blood BLOOD SPECIMEN / Unknown 06/26/2025 6:30 AM EDT 06/26/2025 6:32 AM EDT Duong Vitale MD POINT OF CARE TEST ORDERABLES Final Result Performing Organization Address City/[facility]/ZIP Co de Phone Number [facility] [address] [place] [address] * GLUCOSE METER POC (06/26/2025 12:14 AM EDT) Glucose Meter POC 91 70 - 100 mg/dL 06/26/2025 12:15 AM EDT [facility] Sample Type Capillary 06/26/2025 12:15 AM EDT [facility] Patient Status Non-Critical Patient 06/26/2025 12:15 AM EDT [facility] Blood BLOOD SPECIMEN / Unknown 06/26/2025 12:14 AM EDT 06/26/2025 12:15 AM EDT us Duong Vitale MD POINT OF CARE TEST ORDERABLES Final Result Performing Organization Address City/[facility]/ZIP Co de Phone Number [facility] [address] [place] [address] * ECG AND WAVEFORMS - TELEMETRY (06/25/2025 7:20 PM EDT) ECG INTERPRET Atrial Fib [facility] 06/25/2025 7:20 PM EDT Narrative [facility] - 06/25/2025 7:20 PM EDT See Clinical Report link for waveform capture us Unknown Provider POINT OF CARE CARDIOLOGY Final Result [facility] [address] [place] [address] * GLUCOSE METER POC (06/25/2025 6:14 PM EDT) Glucose Meter POC 80 70 - 100 mg/dL 06/25/2025 6:16 PM EDT [facility] Sample Type Capillary 06/25/2025 6:16 PM EDT [facility] Patient Status Non-Critical Patient 06/25/2025 6:16 PM EDT [facility] Blood BLOOD SPECIMEN / Unknown 06/25/2025 6:14 PM EDT 06/25/2025 6:16 PM EDT us Duong Vitale MD POINT OF CARE TEST ORDERABLES Final Result Performing Organization Address [facility] de Phone Number [facility] [address] [place] [address] * POTASSIUM LEVEL (06/25/2025 4:44 PM EDT) Potassium 4.2 3.5 - 5.0 mmol/L 06/25/2025 5:03 PM EDT [facility] Blood VENOUS BLOOD / Unknown Venipuncture / Unknown 06/25/2025 4:44 PM EDT 06/25/2025 4:51 PM EDT us Gabby Heredia APRN CHEMISTRY ORDERABLES Final Resul t Performing Organization Address [facility] de Phone Number [facility] [address] [place] [address] * EEG ED/ICU REMOTE MONITORING (06/25/2025 3:28 [...] without any parasagittal coverage (rapid EEG - Convoe device). Computer selected EEG is reviewed as well as background features and all clinically significant events. TECHNICAL SUMMARY: This is a 10 channel referential and bipolar EEG recorded in a digital format on the Convoe device. This device is designed to detect [...] GLUCOSE METER POC (06/25/2025 12:30 PM EDT) [facility] Glucose Meter POC 102(H) 70 - 100 mg/dL 06/25/2025 12:32 PM EDT [facility] Sample Type Capillary 06/25/2025 12:32 PM EDT [facility] Patient Status Non-Critical Patient 06/25/2025 12:32 PM EDT [facility] Blood BLOOD SPECIMEN / Unknown 06/25/2025 12:30 PM EDT 06/25/2025 12:32 PM EDT Duong Vitale MD POINT OF CARE TEST ORDERABLES Final Result [facility] [address] [place] [address] * (ABNORMAL) BLOOD GAS, VENOUS (06/25/2025 10:58 AM EDT) pH Venous 7.42 7.32 - 7.42 pH 06/25/2025 11:14 AM EDT [facility] pCO2 Venous 37(L) 41 - 51 mmHg 06/25/2025 11:14 AM EDT [facility] pO2 Venous 50(H) 25 - 40 mmHg 06/25/2025 11:14 AM EDT [facility] Comment:Interpret with cauti on. Not recommended to evaluate patient's oxygenation status. Base Excess Martín 0.0 mmol/L 11:14 AM EDT [facility] Hco3 Venous 24.3 24.0 - 28.0 mmol/L 06/25/2025 11:14 AM EDT [facility] CO2 Total Martín 23(L) 25 - 29 mmol/L 06/25/2025 11:14 AM EDT [facility] O2 Sat. Venous 83.5(H) 40.0 - 70.0 % 06/25/2025 11:14 AM EDT [facility] Inspired O2 25 06/25/2025 11:14 AM EDT [facility] Blood VENOUS STRUCTURE / Unknown Line / Unknown 06/25/2025 10:58 AM EDT 06/25/2025 11:06 AM EDT us Gabby Heredia APRN CHEMISTRY ORDERABLES Final Resul t [facility] [address] [place] [address] * GLUCOSE METER POC (06/25/2025 8:20 AM EDT) [facility] Glucose Meter POC 98 70 - 100 mg/dL 06/25/2025 8:23 AM EDT [facility] Sample Type Arterial 06/25/2025 8:23 AM EDT [facility] Patient Status Non-Critical Patient 06/25/2025 8:23 AM EDT [facility] Blood BLOOD SPECIMEN / Unknown 06/25/2025 8:20 AM EDT 06/25/2025 8:23 AM EDT us Duong Vitale MD POINT OF CARE TEST ORDERABLES Final Result Performing Organization Address City/[facility]/ZIP Co de Phone Number [facility] [address] [place] [address] * ECG AND WAVEFORMS - TELEMETRY (06/25/2025 7:40 AM EDT) ECG INTERPRET Atrial Fib [facility] 06/25/2025 7:40 AM EDT Narrative [facility] - 06/25/2025 7:40 AM EDT See Clinical Report link for waveform capture us Unknown Provider POINT OF CARE CARDIOLOGY Final Result [facility] [address], [place] [id number] * (ABNORMAL) BASIC METABOLIC PANEL (06/25/2025 6:31 AM EDT) Pathologist [facility] Sodium 139 136 - 145 mmol/L 06/25/2025 7:09 AM EDT [facility] Potassium 3.4(L) 3.5 - 5.0 mmol/L 06/25/2025 7:09 AM EDT [facility] Chloride 106 98 - 107 mmol/L 06/25/2025 7:09 AM EDT [facility] Total CO2 21(L) 22 - 29 mmol/L 06/25/2025 7:09 AM EDT [facility] Anion Gap 12 7 - 16 mmol/L 06/25/2025 7:09 AM EDT [facility] Calcium 8.5(L) 8.8 - 10.4 mg/dL 06/25/2025 7:09 AM EDT [facility] Glucose Lvl 95 70 - 99 mg/dL 06/25/2025 7:09 AM EDT [facility] BUN 16 8 - 23 mg/dL 06/25/2025 7:09 AM EDT [facility] Creatinine 1.05 0.51 - 1.30 mg/dL 06/25/2025 7:09 AM EDT [facility] eGFR (CKD-EPIcr 2020) 52(L) >=60 mL/min/1.7 3 m2 06/25/2025 7:09 AM EDT [facility] Comment:Estimated GFR was ca lculated using the CKD-EPIcr (2020) equation refit without race. The equation is recommended by the National Kidney Foundation - [place] [employer] Nephrology Task Force. Blood VENOUS BLOOD / Unknown Venipuncture / Unknown 06/25/2025 6:31 AM EDT 06/25/2025 6:45 AM EDT Spencer Luna APRN CHEMISTRY ORDERABLES Fin al Result Performing Organization Address [facility] de Phone Number [facility] [address] [place] [address] * (ABNORMAL) NT PROBNP (06/25/2025 6:31 AM EDT) NT Pro-BNP 5,011(H) <=624 pg/mL 06/25/2025 7:09 AM EDT [facility] Blood VENOUS BLOOD / Unknown Venipuncture / Unknown 06/25/2025 6:31 AM EDT 06/25/2025 6:45 AM EDT Narrative [facility] - 06/25/2025 7:09 AM EDT An NT pro-BNP level less than 300 pg/mL in any patient, regardless of age, effectively rules out acute CHF with a 99% negative predictive value. Ingestion of angie doses of biotin (>5 mg/day) taken within 8 hours of drawing blood sample can interfere with this immunoassay test. Duong Vitale MD CHEMISTRY ORDERABLES Final Re sult Performing Organization Address [facility] de Phone Number [facility] [address] [place] [address] * (ABNORMAL) CBC (06/25/2025 6:31 AM EDT) WBC 4.2 3.7 - 10.3 x10(3)/mcL 06/25/2025 6:47 AM EDT [facility] RBC 2.12(L) 3.90 - 5.20 x10(6)/mcL 06/25/2025 6:47 AM EDT [facility] Hgb 7.9(L) 11.2 - 15.7 g/dL 06/25/2025 6:47 AM EDT [facility] Hct 23.5(L) 34.0 - 45.0 % 06/25/2025 6:47 AM EDT [facility] MCV 110.8(H) 80.0 - 100.0 fL 06/25/2025 6:47 AM EDT [facility] MCH 37.3(H) 26.0 - 34.0 pg 06/25/2025 6:47 AM EDT [facility] MCHC 33.6 30.7 - 35.5 g/dL 06/25/2025 6:47 AM EDT [facility] RDW 19.9(H) <=14.9 % 06/25/2025 6:47 AM EDT [facility] Platelet 63(L) 155 - 369 x10(3)/mcL 06/25/2025 6:47 AM EDT [facility] MPV 13.0(H) 8.8 - 12.5 fL 06/25/2025 6:47 AM EDT [facility] Blood VENOUS BLOOD / Unknown Venipuncture / Unknown 06/25/2025 6:31 AM EDT 06/25/2025 6:45 AM EDT Duong Vitale MD HEMATOLOGY ORDERABLES Final R esult Performing Organization Address City/State/[facility] Co de Phone Number [facility] [address] [place], [place] [id number] * GLUCOSE METER POC (06/25/2025 6:24 AM EDT) [facility] Glucose Meter POC 96 70 - 100 mg/dL 06/25/2025 6:25 AM EDT [facility] Sample Type Capillary 06/25/2025 6:25 AM EDT [facility] Patient Status Non-Critical Patient 06/25/2025 6:25 AM EDT [facility] Blood BLOOD SPECIMEN / Unknown 06/25/2025 6:24 AM EDT 06/25/2025 6:25 AM EDT Duong Vitale MD POINT OF CARE TEST ORDERABLES Final Result Performing Organization Address City/[facility]/ZIP Co de Phone Number [facility] [address] [place] [address] * GLUCOSE METER POC (06/25/2025 1:14 AM EDT) Glucose Meter POC 76 70 - 100 mg/dL 06/25/2025 1:16 AM EDT [facility] Sample Type Capillary 06/25/2025 1:16 AM EDT [facility] Patient Status Non-Critical Patient 06/25/2025 1:16 AM EDT [facility] Blood BLOOD SPECIMEN / Unknown 06/25/2025 1:14 AM EDT 06/25/2025 1:16 AM EDT Duong Vitale MD POINT OF CARE TEST ORDERABLES Final Result Performing Organization Address [facility] Co de Phone Number [facility] [address] [place] [address] * GLUCOSE METER POC (06/24/2025 8:07 PM EDT) Glucose Meter POC 84 70 - 100 mg/dL 06/24/2025 8:09 PM EDT [facility] Sample Type Capillary 06/24/2025 8:09 PM EDT [facility] Patient Status Non-Critical Patient 06/24/2025 8:09 PM EDT [facility] Blood BLOOD SPECIMEN / Unknown 06/24/2025 8:07 PM EDT 06/24/2025 8:09 PM EDT us Duong Vitale MD POINT OF CARE TEST ORDERABLES Final Result Performing Organization Address City/[facility] Co de Phone Number [facility] [address] [place] [address] * ECG AND WAVEFORMS - TELEMETRY (06/24/2025 7:53 PM EDT) ECG INTERPRET Atrial Fib [facility] 06/24/2025 7:53 PM EDT Narrative [facility] - 06/24/2025 7:53 PM EDT See Clinical Report link for waveform capture us Unknown Provider POINT OF CARE CARDIOLOGY Final Result [facility] [address] [place] [address] * (ABNORMAL) GLUCOSE METER POC (06/24/2025 5:10 PM EDT) Glucose Meter POC 129(H) 70 - 100 mg/dL 06/24/2025 5:11 PM EDT [facility] Sample Type Capillary 06/24/2025 5:11 PM EDT [facility] Patient Status Non-Critical Patient 06/24/2025 5:11 PM EDT [facility] Blood BLOOD SPECIMEN / Unknown 06/24/2025 5:10 PM EDT 06/24/2025 5:11 PM EDT Duong Vitale MD POINT OF CARE TEST ORDERABLES Final Result Performing Organization Address City/[facility] Co de Phone Number [facility] [address] [place] [address] * (ABNORMAL) GLUCOSE METER POC (06/24/2025 4:19 PM EDT) Glucose Meter POC 65(L) 70 - 100 mg/dL 06/24/2025 4:22 PM EDT [facility] Sample Type Capillary 06/24/2025 4:22 PM EDT [facility] Patient Status Non-Critical Patient 06/24/2025 4:22 PM EDT [facility] Blood BLOOD SPECIMEN / Unknown 06/24/2025 4:19 PM EDT 06/24/2025 4:22 PM EDT Duong Vitale MD POINT OF CARE TEST ORDERABLES Final Result Performing Organization Address City/[facility]/ZIP Co de Phone Number [facility] [address] [place] [address] * CT HEAD WO CONTRAST (06/24/2025 2:37 [...] please contactthe office of the ordering clinician. Rutsy Sawyer MD IMG CT ORDERABLES Mita l [...] - 4.5 mg/dL 06/24/2025 12:57 PM EDT [facility] Blood VENOUS BLOOD / Unknown Venipuncture / Unknown 06/24/2025 12:25 PM EDT 06/24/2025 12:34 PM EDT Spencer Luna BOARD [employer]BER CHEMISTRY ORDERABLES Fin al Result [facility] [address] [place] [address] * (ABNORMAL) MAGNESIUM LEVEL (06/24/2025 12:25 PM EDT) Magnesium 3.0(H) 1.6 - 2.4 mg/dL 06/24/2025 12:57 PM EDT [facility] Blood VENOUS BLOOD / Unknown Venipuncture / Unknown 06/24/2025 12:25 PM EDT 06/24/2025 12:34 PM EDT Spencer Luna BOARD MEMBER CHEMISTRY ORDERABLES Fin al Result Performing Organization Address [facility] Co de Phone Number [facility] [address] [place] [address] * (ABNORMAL) GLUCOSE METER POC (06/24/2025 12:16 PM EDT) Glucose Meter POC 112(H) 70 - 100 mg/dL 06/24/2025 12:18 PM EDT [facility] Sample Type Capillary 06/24/2025 12:18 PM EDT [facility] Patient Status Non-Critical Patient 06/24/2025 12:18 PM EDT [facility] Blood BLOOD SPECIMEN / Unknown 06/24/2025 12:16 PM EDT 06/24/2025 12:18 PM EDT us Duong Vitale MD POINT OF CARE TEST ORDERABLES Final Result Performing Organization Address [facility] Co de Phone Number [facility] [address] [place] [address] * SCANNED EKG (06/24/2025 10:55 AM EDT) Anatomical Region Laterality Modality Other 06/24/2025 10:5 5 AM EDT us Unknown Provider IMG ECG ORDERABLES Final Result * (ABNORMAL) GLUCOSE METER POC (06/24/2025 8:15 AM EDT) Glucose Meter POC 236(H) 70 - 100 mg/dL 06/24/2025 8:17 AM EDT [facility] Sample Type Capillary 06/24/2025 8:17 AM EDT [facility] Patient Status Non-Critical Patient 06/24/2025 8:17 AM EDT [facility] Blood BLOOD SPECIMEN / Unknown 06/24/2025 8:15 AM EDT 06/24/2025 8:17 AM EDT Duong Vitale MD POINT OF CARE TEST ORDERABLES Final Result [facility] [address] [place] [id number] * (ABNORMAL) BLOOD GAS ARTERIAL (06/24/2025 5:26 AM EDT) pH 7.45 7.35 - 7.45 pH 06/24/2025 5:39 AM EDT [facility] pCO2 31(L) 35 - 45 mmHg 06/24/2025 5:39 AM EDT [facility] pO2 86 80 - 100 mmHg 06/24/2025 5:39 AM EDT [facility] HCO3 21.8(L) 22.0 - 26.0 mmol/L 06/24/2025 5:39 AM EDT [facility] TCO2 21(L) 22 - 29 mmol/L 06/24/2025 5:39 AM EDT [facility] Base Excess -1.8 -2.0 - 3.0 mmol/L 06/24/2025 5:39 AM EDT [facility] O2 Sat 97.7 95.0 - 98.0 % 06/24/2025 5:39 AM EDT [facility] Inspired O2 50 06/24/2025 5:39 AM EDT [facility] P/F Ratio 172(L) 300 - 500 mmHg 06/24/2025 5:39 AM EDT [facility] Comment: P/F ratio alone cannot diagnose ARDS. However, the following scale may be used to help classify Adult Respiratory Distress Syndrome (ARDS) severity: 200-300: Mild ARDS 100-199: Moderate ARDS <100: Severe ARDS Blood ARTERIAL BLOOD / Unknown Arterial / Unknown 06/24/2025 5:26 AM EDT 06/24/2025 5:32 AM EDT John Rich MD CHEMISTRY ORDERABLES Final Resu lt Performing Organization Address City/[facility]/ZIP Co de Phone Number [facility] [address] [place], [place] [id number] * T4, FREE (THYROXINE) (06/24/2025 5:10 AM EDT) Free T4 0.98 0.80 - 1.80 ng/dL 06/24/2025 3:36 PM EDT [facility] [employer] Blood VENOUS BLOOD / Unknown Venipuncture / Unknown 06/24/2025 5:10 AM EDT 06/24/2025 5:32 AM EDT Narrative [facility] - 06/24/2025 3:36 PM EDT Ingestion of angie doses of biotin (>5 mg/day) taken within 8 hours of drawing blood sample can interfere with this immunoassay test. Lianet Harris APRN CHEMISTRY ORDERABLES Fi nal Result Performing Organization Address [facility] Co de Phone Number [facility] [employer] [address], [place] [address] * (ABNORMAL) TSH REFLEX TO FT4 (06/24/2025 5:10 AM EDT) TSH Reflex 10.400(H) 0.270 - 4.200 mcIU/mL 06/24/2025 2:51 PM EDT [facility] Blood VENOUS BLOOD / Unknown Venipuncture / Unknown 06/24/2025 5:10 AM EDT 06/24/2025 5:32 AM EDT Narrative [facility] - 06/24/2025 2:51 PM EDT Ingestion of angie doses of biotin (>5 mg/day) taken within 8 hours of drawing blood sample can interfere with this immunoassay test. us Lianet Harris APRN CHEMISTRY ORDERABLES Fi nal Result Performing Organization Address City/[facility]/ZIP Co de Phone Number [facility] [employer] [facility] [address] , [place] [address] * TRIGLYCERIDES (06/24/2025 5:10 AM EDT) Triglyceride 107 <150 mg/dL 06/24/2025 8:05 AM EDT [facility] [employer] [facility] Comment: < 150 Normal 150 - 199 Borderline High 200 - 499 High >= 500 Very High Blood VENOUS BLOOD / Unknown Venipuncture / Unknown 06/24/2025 5:10 AM EDT 06/24/2025 5:32 AM EDT Donnie Esqueda MD CHEMISTRY ORDERABLES Final Re sult Performing Organization Address [facility] de Phone Number [facility] [employer] [facility] [address] , [place] [address] * (ABNORMAL) NT PROBNP (06/24/2025 5:10 AM EDT) NT Pro-BNP 7,992(H) <=624 pg/mL 06/24/2025 5:53 AM EDT [facility] Blood VENOUS BLOOD / Unknown Venipuncture / Unknown 06/24/2025 5:10 AM EDT 06/24/2025 5:32 AM EDT Narrative [facility] - 06/24/2025 5:53 AM EDT An NT pro-BNP level less than 300 pg/mL in any patient, regardless of age, effectively rules out acute CHF with a 99% negative predictive value. Ingestion of angie doses of biotin (>5 mg/day) taken within 8 hours of drawing blood sample can interfere with this immunoassay test. Duong Vitale MD CHEMISTRY ORDERABLES Final Re sult Performing Organization Address City/[facility] Co de Phone Number [facility] [address] [place] [address] * (ABNORMAL) COMPREHENSIVE METABOLIC PANEL (06/24/2025 5:10 AM EDT) Sodium 136 136 - 145 mmol/L 06/24/2025 5:53 [facility] Potassium 4.1 3.5 - 5.0 mmol/L 06/24/2025 5:53 [facility] Chloride 103 98 - 107 mmol/L 06/24/2025 5:53 AM [facility] Total CO2 21(L) 22 - 29 mmol/L 06/24/2025 5:53 AM [facility] Anion Gap 12 7 - 16 mmol/L 06/24/2025 5:53 AM [facility] Calcium 8.5(L) 8.8 - 10.4 mg/dL 06/24/2025 5:53 AM [facility] Glucose Lvl 229(H) 70 - 99 mg/dL 06/24/2025 5:53 AM [facility] BUN 16 8 - 23 mg/dL 06/24/2025 5:53 AM [facility] Creatinine 1.17 0.51 - 1.30 mg/dL 06/24/2025 5:53 AM [facility] Albumin 3.6 3.2 - 4.6 gm/dL 06/24/2025 5:53 AM [facility] Total Protein 6.5 6.4 - 8.3 gm/dL 06/24/2025 5:53 AM [facility] Bili Total 0.6 0.2 - 1.3 mg/dL 06/24/2025 5:53 AM EDT [facility] ALT 17 <=41 U/L 06/24/2025 5:53 AM [facility] AST 31 <=40 U/L 06/24/2025 5:53 AM [facility] Alk Phos 149(H) 36 - 123 U/L 06/24/2025 5:53 AM [facility] eGFR (CKD-EPIcr 2020) 46(L) >=60 mL/min/1.7 3 m2 06/24/2025 5:53 AM [facility] Comment:Estimated GFR was ca lculated using the CKD-EPIcr (2020) equation refit without race. The equation is recommended by the National Kidney Foundation - [place] [employer] Nephrology Task Force. Blood VENOUS BLOOD / Unknown Venipuncture / Unknown 06/24/2025 5:10 AM EDT 06/24/2025 5:32 AM EDT us Duong Vitale MD CHEMISTRY ORDERABLES Final Re sult [facility] [address] [place] [address] * (ABNORMAL) CBC (06/24/2025 5:10 AM EDT) WBC 4.5 3.7 - 10.3 x10(3)/mcL 06/24/2025 5:34 AM EDT [facility] RBC 2.23(L) 3.90 - 5.20 x10(6)/mcL 06/24/2025 5:34 AM EDT [facility] Hgb 8.3(L) 11.2 - 15.7 g/dL 06/24/2025 5:34 AM EDT [facility] Hct 25.0(L) 34.0 - 45.0 % 06/24/2025 5:34 AM EDT [facility] MCV 112.1(H) 80.0 - 100.0 fL 06/24/2025 5:34 AM EDT [facility] MCH 37.2(H) 26.0 - 34.0 pg 06/24/2025 5:34 AM EDT [facility] MCHC 33.2 30.7 - 35.5 g/dL 06/24/2025 5:34 AM EDT [facility] RDW 20.0(H) <=14.9 % 06/24/2025 5:34 AM EDT [facility] Platelet 83(L) 155 - 369 x10(3)/mcL 06/24/2025 5:34 AM EDT [facility] MPV 12.8(H) 8.8 - 12.5 fL 06/24/2025 5:34 AM EDT [facility] Blood VENOUS BLOOD / Unknown Venipuncture / Unknown 06/24/2025 5:10 AM EDT 06/24/2025 5:32 AM EDT us Duong Vitale MD HEMATOLOGY ORDERABLES Final R esult Performing Organization Address [facility] de Phone Number [facility] [address] [place] [address] * (ABNORMAL) GLUCOSE METER POC (06/24/2025 5:05 AM EDT) [facility] Glucose Meter POC 208(H) 70 - 100 mg/dL 06/24/2025 5:07 AM EDT [facility] Sample Type Venous 06/24/2025 5:07 AM EDT [facility] Patient Status Critical Patient 06/24/2025 5:07 AM EDT [facility] Blood BLOOD SPECIMEN / Unknown 06/24/2025 5:05 AM EDT 06/24/2025 5:07 AM EDT us Duong Vitale MD POINT OF CARE TEST ORDERABLES Final Result Performing Organization Address [facility] de Phone Number [facility] [address] [place] [address] * XR CHEST AP PORTABLE (06/24/2025 4:17 [...] - 7.45 pH 06/24/2025 2:33 AM EDT [facility] pCO2 38 35 - 45 mmHg 06/24/2025 2:33 AM EDT [facility] pO2 56(L) 80 - 100 mmHg 06/24/2025 2:33 AM EDT [facility] HCO3 22.3 22.0 - 26.0 mmol/L 06/24/2025 2:33 AM EDT [facility] TCO2 21(L) 22 - 29 mmol/L 06/24/2025 2:33 AM EDT [facility] Base Excess -2.5(L) -2.0 - 3.0 mmol/L 06/24/2025 2:33 AM EDT [facility] O2 Sat 86.7(L) 95.0 - 98.0 % 06/24/2025 2:33 AM EDT [facility] Insp[employer] O2 70 06/24/2025 2:33 AM EDT [facility] P/F Ratio 80(L) 300 - 500 mmHg 06/24/2025 2:33 AM EDT [facility] Comment: P/F ratio alone cannot diagnose ARDS. However, the following scale may be used to help classify Adult Respiratory Distress Syndrome (ARDS) severity: 200-300: Mild ARDS 100-199: Moderate ARDS <100: Severe ARDS Blood ARTERIAL BLOOD / Unknown Arterial / Unknown 06/24/2025 2:25 AM EDT 06/24/2025 2:29 AM EDT us Donnie Esqueda MD CHEMISTRY ORDERABLES Final Re sult [facility] [address] [place] [address] * XR CHEST AP PORTABLE (06/24/2025 12:59 [...] contactthe office of the ordering clinician. Donnie Esqueda MD [facility] DIAGNOSTIC IMAGING ORDERA BLES Final Result * [...] contactthe office of the ordering clinician. 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 : 1940 Requested By: DONNIE ESQUEDA Order Number: [id number] Reading MD: Sukh Garner Measurements Intervals [place] Rate: 54 P: 0 KS: 0 QRS: 39 QRSD: 89 T: 0 [...] Radha [place] Test Date: 2025-06-24 Pat Name: [facility] Department: DEPID Room: [facility] Gender: Female 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 : 1940 Requested By: DONNIE ESQUEDA Order Number: [id number] Reading MD: Sukh Garner Measurements Intervals [place] Rate: 54 P: 0 KS: 0 QRS: 39 QRSD: 89 T: 0 [...] - 100 mg/dL 06/24/2025 12:06 AM EDT [facility] Sample Type Venous 06/24/2025 12:06 AM EDT [facility] Patient Status Critical Patient 06/24/2025 12:06 AM EDT [facility] Blood BLOOD SPECIMEN / Unknown 06/24/2025 12:04 AM EDT 06/24/2025 12:06 AM EDT us Duong Vitale MD POINT OF CARE TEST ORDERABLES Final Result Performing Organization Address City/[facility] Co de Phone Number [facility] [address] [phone] * ECG AND WAVEFORMS - TELEMETRY (06/23/2025 11:59 PM EDT) ECG INTERPRET Sinus Bradycardia [facility] 06/23/2025 11:5 9 PM EDT Narrative [facility] - 06/24/2025 12:04 AM EDT qj Pause 3.57 See Clinical Report link for waveform capture us Unknown Provider POINT OF CARE CARDIOLOGY Final Result Performing Organization Address [facility] Co de Phone Number [facility] [address] [place] [address] * ECG AND WAVEFORMS - TELEMETRY (06/23/2025 11:59 PM EDT) ECG INTERPRET Sinus Bradycardia [facility] 06/23/2025 11:5 9 PM EDT Narrative [facility] - 06/24/2025 12:02 AM EDT qj Pause 3.57 See Clinical Report link for waveform capture us Unknown Provider POINT OF CARE CARDIOLOGY Final Result Performing Organization Address [facility] Co de Phone Number [facility] [address] [place] [address] * ECG AND WAVEFORMS - TELEMETRY (06/23/2025 11:59 PM EDT) ECG INTERPRET Atrial Fib [facility] 06/23/2025 11:5 9 PM EDT Narrative [facility] - 06/24/2025 12:00 AM EDT Afib/qj Pause 3.10 See Clinical Report link for waveform capture us Unknown Provider POINT OF CARE CARDIOLOGY Final Result Performing Organization Address [facility]/ZIP Co de Phone Number [facility] [address] [phone] * ECG AND WAVEFORMS - TELEMETRY (06/23/2025 11:55 PM EDT) ECG INTERPRET Sinus Bradycardia [facility] 06/23/2025 11:5 5 PM EDT Narrative [facility] - 06/23/2025 11:56 PM EDT Pause 2.72 See Clinical Report link for waveform capture us Unknown Provider POINT OF CARE CARDIOLOGY Final Result Performing Organization Address [facility] de Phone Number [facility] [address] [place] [address] * ECG AND WAVEFORMS - TELEMETRY (06/23/2025 9:30 PM EDT) ECG INTERPRET Sinus Bradycardia [facility] 06/23/2025 9:30 PM EDT Narrative [facility] - 06/23/2025 9:34 PM EDT Pause 3.09 See Clinical Report link for waveform capture us Unknown Provider POINT OF CARE CARDIOLOGY Final Result Performing Organization Address [facility] Co de Phone Number [facility] [address] [place] [address] * ECG AND WAVEFORMS - TELEMETRY (06/23/2025 7:00 PM EDT) ECG INTERPRET Atrial Fib [facility] 06/23/2025 7:00 PM EDT Narrative [facility] - 06/23/2025 7:51 PM EDT Routine 1900/Frequent PVC/qj QRS 0.10 Pause 2.73 See Clinical Report link for waveform capture us Unknown Provider POINT OF CARE CARDIOLOGY Final Result Performing Organization Address [facility]/ZIP Co de Phone Number [facility] [address] [place] [address] * ECG AND WAVEFORMS - TELEMETRY (06/23/2025 6:53 PM EDT) ECG INTERPRET Sinus Bradycardia [facility] 06/23/2025 6:53 PM EDT Narrative [facility] - 06/23/2025 6:55 PM EDT -HB QRS 0.06 See Clinical Report link for waveform capture us Unknown Provider POINT OF CARE CARDIOLOGY Final Result Performing Organization Address City/[facility]/ZIP Co de Phone Number [facility] [address] [place] [address] * EXTRA HUITRON URINE CX (06/23/2025 5:11 PM EDT) Urine STRUCTURE OF URINARY TRACT PROPER / Unknown 06/23/2025 5:11 PM EDT 06/23/2025 5:29 PM EDT us Duong Vitale MD MICROBIOLOGY - GENERAL ORDERA BLES Final Result Performing Organization Address [facility] Co de Phone Number [facility] [address] [place] [address] * URINALYSIS REFLEX (06/23/2025 5:11 PM EDT) UA Color Yellow 06/23/2025 5:33 PM EDT [facility] UA Appear Clear Clear 06/23/2025 5:33 PM EDT [facility] UA Glucose Negative Negative mg/dL 06/23/2025 5:33 PM EDT [facility] UA Ketones Negative Negative mg/dL 06/23/2025 5:33 PM EDT [facility] UA Blood Negative Negative 06/23/2025 5:33 PM EDT [facility] UA pH 6.5 5.0 - 8.0 pH 06/23/2025 5:33 PM EDT [facility] UA Protein Negative Negative mg/dL 06/23/2025 5:33 PM EDT [facility] UA Urobilinogen Normal <=1 mg/dL 5:33 PM EDT [facility] UA Bili Negative Negative 06/23/2025 5:33 PM EDT [facility] UA Nitrite Negative Negative 06/23/2025 5:33 PM EDT [facility] UA Leuk Est Negative Negative 06/23/2025 5:33 PM EDT [facility] UA Spec Grav 1.011 1.001 - 1.035 no units 06/23/2025 5:33 PM EDT [facility] Comment:Reference range helga d for random specimens only. UA WBC 1 0 - 4 /HPF 06/23/2025 5:33 PM EDT [facility] UA RBC 1 0 - 3 /HPF 06/23/2025 5:33 PM EDT [facility] Urine STRUCTURE OF URINARY TRACT PROPER / Unknown 06/23/2025 5:11 PM EDT 06/23/2025 5:29 PM EDT us Duong Vitale MD URINE ORDERABLES Final Result Performing Organization Address City/[facility]/ZIP Co de Phone Number [facility] [address] [place] [address] * ECG AND WAVEFORMS - TELEMETRY (06/23/2025 4:41 PM EDT) Pathologist [facility] ECG INTERPRET Sinus Arrythmia [facility] 06/23/2025 4:41 PM EDT Narrative [facility] - 06/23/2025 4:45 PM EDT BIGEMINY ADMIT -HB QRS 0.09 See Clinical Report link for waveform capture us Unknown Provider POINT OF CARE CARDIOLOGY Final Result [facility] [address] [place] [address] * (ABNORMAL) TROPONIN-T HIGH SENSITIVITY 2HR (06/23/2025 4:11 PM EDT) rc-gBmnkxlsq-C 2HR 83(H) <14 ng/L 06/23/2025 4:36 PM EDT [facility] hs-cTnT 2Hr Delta from Baseline -9 <4 ng/L 06/23/2025 4:36 PM EDT [facility] Blood VENOUS BLOOD / Unknown Venipuncture / Unknown 06/23/2025 4:11 PM EDT 06/23/2025 4:14 PM EDT Narrative [facility] - 06/23/2025 4:36 PM EDT Ingestion of angie doses of biotin (>5 mg/day) taken within 8 hours of drawing blood sample can interfere with this immunoassay test. 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 Small left and bhkqf-dr-bhxfwabt right pleural effusions. Emphysema. 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 Small left and ahqwc-cf-vqwqhcwp right pleuraleffusions. Emphysema. Opacities dependently in the [...] contactthe office of the ordering clinician. us Stephan Rodriguez MD IMG CT ORDERABLES Final [...] (ABNORMAL) NT PROBNP (06/23/2025 1:28 PM EDT) Pathologist [facility] NT Pro-BNP 7,449(H) <=624 pg/mL 06/23/2025 1:58 PM EDT [facility] Blood VENOUS BLOOD / Unknown Venipuncture / Unknown 06/23/2025 1:28 PM EDT 06/23/2025 1:35 PM EDT Narrative [facility] - 06/23/2025 1:58 PM EDT An NT pro-BNP level less than 300 pg/mL in any patient, regardless of age, effectively rules out acute CHF with a 99% negative predictive value. Ingestion of angie doses of biotin (>5 mg/day) taken within 8 hours of drawing blood sample can interfere with this immunoassay test. Stephan Rodriguez MD CHEMISTRY ORDERABLES Final R esult [facility] [address] [place] [address] * (ABNORMAL) PARTIAL THROMBOPLASTIN TIME (06/23/2025 1:28 PM EDT) Pathologist [facility] PTT 37.0(H) 25.7 - 36.8 second(s) 06/23/2025 1:48 PM EDT [facility] Comment: Therapeutic range for unfractionated [...] HEMATOLOGY ORDERABLES Final Result Performing Organization Address [facility] de Phone Number [facility] [address] [place] [address] * (ABNORMAL) PT / INR (06/23/2025 1:28 PM EDT) PT 15.3(H) 10.5 - 13.6 second(s) 06/23/2025 1:48 PM EDT [facility] INR 1.32(H) 0.91 - 1.18 (ratio) 06/23/2025 1:48 PM EDT [facility] Comment: Level of Therapy Indications Target INR Range Standard Dose Treatment and prophylaxis of venous 2.0 - 3.0 thrombosis, pulmonary embolism High Dose High risk patients with mechanical 2.5 - 3.5 heart valves Blood VENOUS BLOOD / Unknown Venipuncture / Unknown 06/23/2025 1:28 PM EDT 06/23/2025 1:35 PM EDT Stephan Rodriguez MD HEMATOLOGY ORDERABLES Final Result Performing Organization Address [facility] de Phone Number [facility] [address] [place] [address] * (ABNORMAL) D-DIMER (06/23/2025 1:28 PM EDT) Pathologist [facility] D-Dimer 1,389(H) <=500 ng/mL FEU 06/23/2025 1:48 PM EDT [facility] Comment:This is an automated latex enhanced immunoassay [...] HEMATOLOGY ORDERABLES Final Result Performing Organization Address [facility] Phone Number [facility] [address] [place] [address] * (ABNORMAL) TROPONIN-T HIGH SENSITIVITY BASELINE W/ REFLEX (06/23/2025 1:28 PM EDT) [facility] up-eSfbzvjng-B 92(H) <14 ng/L 06/23/2025 2:10 PM EDT [facility] Blood VENOUS BLOOD / Unknown Venipuncture / Unknown 06/23/2025 1:28 PM EDT 06/23/2025 1:35 PM EDT Narrative [facility] - 06/23/2025 2:10 PM EDT Ingestion of angie doses of biotin (>5 mg/day) taken within 8 hours of drawing blood sample can interfere with this immunoassay test. Stephan Rodriguez MD CHEMISTRY ORDERABLES Final R esult Performing Organization Address [facility] Co de Phone Number [facility] [address] [place] [address] * (ABNORMAL) BASIC METABOLIC PANEL (06/23/2025 1:28 PM EDT) Sodium 138 136 - 145 mmol/L 06/23/2025 1:58 PM EDT [facility] Potassium 4.5 3.5 - 5.0 mmol/L 06/23/2025 1:58 PM EDT [facility] Chloride 107 98 - 107 mmol/L 06/23/2025 1:58 PM EDT [facility] Total CO2 20(L) 22 - 29 mmol/L 06/23/2025 1:58 PM EDT [facility] Anion Gap 11 7 - 16 mmol/L 06/23/2025 1:58 PM EDT [facility] Calcium 9.1 8.8 - 10.4 mg/dL 06/23/2025 1:58 PM EDT [facility] Glucose Lvl 116(H) 70 - 99 mg/dL 06/23/2025 1:58 PM EDT [facility] BUN 10 8 - 23 mg/dL 06/23/2025 1:58 PM EDT [facility] Creatinine 0.84 0.51 - 1.30 mg/dL 06/23/2025 1:58 PM EDT [facility] eGFR (CKD-EPIcr 2020) 68 >=60 mL/min/1.7 3 m2 06/23/2025 1:58 PM EDT [facility] Comment:Estimated GFR was ca lculated using the CKD-EPIcr (2020) equation refit without race. The equation is recommended by the National Kidney Foundation - [place] [employer] of Nephrology Task Force. Blood VENOUS BLOOD / Unknown Venipuncture / Unknown 06/23/2025 1:28 PM EDT 06/23/2025 1:35 PM EDT us Stephan Rodriguez MD CHEMISTRY ORDERABLES Final R esult [facility] [address] [place] [address] * (ABNORMAL) CBC (06/23/2025 1:28 PM EDT) Pathologist [facility] WBC 3.4(L) 3.7 - 10.3 x10(3)/mcL 06/23/2025 1:37 PM EDT [facility] RBC 2.72(L) 3.90 - 5.20 x10(6)/mcL 06/23/2025 1:37 PM EDT [facility] Hgb 10.2(L) 11.2 - 15.7 g/dL 06/23/2025 1:37 PM EDT [facility] Hct 30.1(L) 34.0 - 45.0 % 06/23/2025 1:37 PM EDT [facility] MCV 110.7(H) 80.0 - 100.0 fL 06/23/2025 1:37 PM EDT [facility] MCH 37.5(H) 26.0 - 34.0 pg 06/23/2025 1:37 PM EDT [facility] MCHC 33.9 30.7 - 35.5 g/dL 06/23/2025 1:37 PM EDT [facility] RDW 19.9(H) <=14.9 % 06/23/2025 1:37 PM EDT [facility] Platelet 84(L) 155 - 369 x10(3)/mcL 06/23/2025 1:37 PM EDT [facility] MPV 12.7(H) 8.8 - 12.5 fL 06/23/2025 1:37 PM EDT [facility] Blood VENOUS BLOOD / Unknown Venipuncture / Unknown 06/23/2025 1:28 PM EDT 06/23/2025 1:35 PM EDT us Stephan Rodriguez MD HEMATOLOGY ORDERABLES Final Result [facility] [address] [place] [address] * EK EKG 12 LEAD (06/23/2025 1:16 PM EDT) Anatomical Region Laterality Modality Electrocardiogra phy 06/23/2025 1:20 PM EDT Impressions 06/23/2025 7:29 PM EDT [facility] Test Date: 2025-06-23 Pat Name: SKYLER CLARKSTON Department: DEPID Room: W428 Gender: Female Telegraph Equipment Maintainer: Femi : 1940 Requested By: STEPHAN Earl Order Number: [id number] Reading MD: Jaycob Sandoval Measurements Intervals [place] Rate: 139 P: 0 KS: 0 QRS: 65 QRSD: 82 T: 26 QT: 286 QTc: 436 Interpretive Statements ATRIAL FIBRILLATION WITH RAPID VENTRICULAR RESPONSE 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 Do not administer if NPO or on clear liquid diet. Not for IV use. Supplied by [facility] Given 06/26/2025 5:14 PM EDT 1 'box' GLUCERNA Therapeutic oral supplement 1 'box' 1 'box', Oral, 2 TIMES DAILY (NUTR), First dose on Tue06/26/25 at 2000, Until Discontinued, [place] Administer orally. Do not administer if NPO [...] by at least 3 hours. Insulin Calculator HOME ENERGY RATER - DBN, FLORINA, FTT, ICUs, and CVSICU [...] by at least 3 hours. Insulin Calculator HOME ENERGY RATER - DBN, FLORIAN, FTT, ICUs, and CVSICU Only Waste Sort [...] by at least 3 hours. Insulin Calculator HOME ENERGY RATER - DBN, [place], FTT, ICUs, and CVSICU [...] 1 Drop, Ophthalmic, NIGHTLY, First dose on Geraldine 06/23/25 at 2100, Until Discontinued Given 07/01/2025 9:03 [...] Oral, 2 TIMES DAILY, First dose on [facility] 06/27/25 at 2100, Until Discontinued Given 07/02/2025 9:46 [...] 25 mg, Oral, DAILY, First dose on [facility] 06/27/25 at 1345, Until Discontinued Given 07/02/2025 9:46 [...] every 12 hours, in accordance with the ski patrol's recommendation., Goal RASS Score: 0, -1, -2, [...] time a day for POLYNEUROPATHY 06/11/2025 07/02/20 25 ertapenem sodium (ERTAPENEM INJ) Inject 1 g into the muscle daily. Ertapenem sodium injection solution reconstituted 1gm, inject 1 gm intramuscularly one time a day for UTI for seven days 06/18/2025 07/02/20 25 added in this encounter Active and Recently [...] Patient Declined)1457 (Given - Provider: Tamia Morrow RN)212 (Given - Provider: Radha Martinez RN) 0600 (Not Given - Provider: Radha Martinez RN - Reason: Patient Declined)1426 (Given - Provider: Manuel Frey RN)2100 (Given - Provider: Radha Martinez RN) 0600 [...] Discontinued, Max of 16 tablets per day. 0910 (Given - Provider: Tamia Morrow RN) 101 (Given - Provider: Manuel Frey RN) 0946 (Given - Provider: Manuel Frey RN) cyanocobalamin tablet 1,000 mcg 1,000 mcg, Oral, DAILY, First dose on 06/23/25 at 1545, Until Discontinued 09 (Given - Provider: Tamia Morrow RN) 101 (Given - Provider: Manuel Frey RN) 0946 (Given - Provider: Manuel Frey RN) fUROsemide (LASix) tablet 40 mg 40 mg, Oral, DAILY, First dose on Arlene 06/27/25 at 0900, Until Discontinued 910 (Given - Provider: Tamia Morrow RN) 101 (Given - Provider: Manuel Frey RN) 0946 (Given - Provider: Manuel Frey RN) gabapentin (NEURONTIN) capsule 200 mg 200 mg, Oral, 3 TIMES DAILY, First dose (after last modification) on Tue06/30/25 at 2100, Until Discontinued, Capsules may be opened and contents dissolved in water for administration 2123 (Given - Provider: Radha Martinez RN) 1011 (Given - Provider: Manuel Frey RN)1426 (Given - Provider: Manuel Frey RN)210 (Given - Provider: Radha Martinez RN) 0946 (Given - Provider: Manuel Frey RN) gabapentin (NEURONTIN) capsule 300 mg (CANCELED) 300 mg, Oral, 3 TIMES DAILY, First dose (after last modification) on Tue06/27/25 at 2100, Until Discontinued, Capsules may be opened and contents dissolved in water for administration 0911 (Given - Provider: Tamia Morrow RN)1457 (Given - Provider: Tamia Morrow RN) GLUCERNA Therapeutic oral supplement 1 'box' 1 'box', Oral, 2 TIMES DAILY (NUTR), First dose on Tue06/26/25 at 2000, Until Discontinued, [place] Administer orally. Do not administer if NPO [...] by at least 3 hours. Insulin Calculator HOME ENERGY RATER - DBN, FLORINA, FTT, ICUs, and CVSICU [...] Calculator 0800 (Non- Med Documentation - Provider: Tamia Morrow RN)1200 (Non- Med Documentation - Provider: [...] 1 Drop, Ophthalmic, NIGHTLY, First dose on 06/23/25 at 2100, Until Discontinued 2099 (Not Given - Provider: Radha Martinez RN - Reason: Patient Declined - Comment: pt states she uses them every other night) 2102 (Given - Provider: Radha Martinez, MAHENDRA) levETIRAcetam (KEPPRA) tablet 750 mg 750 mg, Oral, 2 TIMES DAILY, First dose on Arlene 06/27/25 at 2100, Until Discontinued 910 (Given - [...] Provider: Manuel Frey RN)1456 (Stopped - Provider: Maunel Frey RN) metoprolol succinate (TOPROL-XL) XL tablet 25 mg 25 mg, Oral, DAILY, First dose on 06/29/25 at 1800, Until Discontinued, May divide tablets in half; do not crush or chew. 09 (Given - Provider: Tamia Morrow RN) [...] dose on Tue07/01/25 at 1445, Until Discontinued 1425 (Given - Provider: Manuel Frey RN)2099 (Not Given - Provider: Radha Martinez, MAHENDRA - Reason: Contraindicated - Comment: pt has [...] Provider: Candelario Cook RN)2130 (Given - Provider: Rdaha Martinez, MAHENDRA) 2100 (Given - Provider: Radha Martinez RN) dextrose 50 % solution 25 mL [...] Non-Opioid Therapy 0010 (Given - Provider: Candelario Cook RN)150 (Given - Provider: Tamia Morrow RN)2122 (Given - Provider: Radha Martinez, MAHENDRA) 101 (Given - Provider: Manuel Frey RN)2100 (Given - Provider: Radha Martinez RN) 0946 (Given - Provider: Manuel Frey, [...] by at least 3 hours. Insulin Calculator HOME ENERGY RATER - DBN, FLORINA, FTT, ICUs, and CVSICU [...] 0-40 Units 2 06/25/2025 06/24/2025 Insulin Calculator (HOME ENERGY RATER) - FSBS (Correction Only) Intake Input 3 [...] - Potassium 1 0 06/24/2025 Insulin Calculator (HOME ENERGY RATER) - FSBS (Correction Only) Input 1 06/24/2025 [...] UROLOGY 1 06/25/2025 IP CONSULT TO MEDICAL LABORER STEEL HANDLING 1 025 IP CONSULT TO NEUROLOGY 1 06/24/2025 IP CONSULT TO NUTRITION 1 06/24/2025 IP CONSULT TO CARDIOLOGY 1 06/23/2025 IP CONSULT TO VASCULAR SURGERY 1 06/23/2025 OT Count Last Ordered Date First Orde red Date IP CONSULT TO OCCUPATIONAL THERAPY 1 2024 PT Count Last Ordered Date First Orde red Date IP CONSULT TO PHYSICAL THERAPY 1 06/26/2025 INDEPENDENT AGENT MUSIC EDUCATION Count Last Ordered Date First Orde red [...] documented as of this encounter Care Teams 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
--- OUTSIDE RECORDS SUMMARY | 2025-07-24 06:48 | XMS_ITS | Encounter Summary ---
Author Organization [employer] ([place], [place], [place], [place]) Address [address] [place] [address] Care Team Providers Care Cover Machine Operator Name Role Phone Jay Howell MD Primary Care Provider [phone] Encounter Details Date Type Department Care Team (Late st Contact Info) Description 03/17/2021 Transcribed Document [facility] Family Medicine [address] [place] [address] ProviderJessie MD [address] [place] [id number] Social History Tobacco Use Types Packs/Day Years [...] Lymph # 1.52 x10(3)/uL 03/16/2021 11:38 EDT [place] % 5.1 % 03/16/2021 11:38 EDT [place] # 0.50 K/uL 03/16/2021 11:38 EDT Eos [...] Appearance CLEAR2 03/16/2021 14:09 EDT Urine Specific [place] 1.015 03/17/2021 04:10 EDT Urine Specific [place] 1.014 03/16/2021 14:09 EDT Urine pH Dipstick [...] on filedocumented in this encounter Care Teams Cover Machine Operator Relationship Specialty Start Date End Date Jay Howell MD [address] [place] [phone] PCP - General Emergency Medicine 11/12/23 documented as of this encounter
--- OUTSIDE RECORDS SUMMARY | 2025-07-24 06:48 | XMS_ITS | Encounter Summary ---
Author Organization [employer] ([place], [place], [place], [place]) Address [address] [place] [address] Care Team Providers Care Blast Setter Name Role Phone Jay Howell MD Primary Care Provider [phone] Encounter Details Date Type Department Care Team (Late st Contact Info) Description 03/17/2021 Transcribed Document [facility] [place] [address] [place] [address] ProviderJessie MD [address] [place] [address] Social History Tobacco Use Types Packs/Day Years [...] on filedocumented in this encounter Care Teams Blast Setter Relationship Specialty Start Date End Date Jay Howell MD [address] [place] [phone] PCP - General Emergency Medicine 11/12/23 documented as of this encounter
--- OUTSIDE RECORDS SUMMARY | 2025-07-24 06:48 | XMS_ITS | Encounter Summary ---
Author Organization [employer] ([place], [place], [place], [place]) Address [address] [place] [address] Care Team Providers Care Coiled Coil Inspector Name Role Phone Jay Howell MD Primary Care Provider [phone] Encounter Details Date Type Department Care Team (Late st Contact Info) Description 08/25/2020 Transcribed Document [facility] Family Medicine [address] [place] [address] ProviderJessie MD [address] [place] [address] Social History Tobacco Use Types Packs/Day Years Used Date Smoking Tobacco: Never Assessed Comments Unknown Sex and Gender Information Value Date Recorded Sex Assigned at Not on file Legal Sex Female 7:30 PM CDT Gender Identity Not on file Sexual Orientation Not on file documented as of this encounter Miscellaneous Notes * Cerner Conversion Note - Jessie ProviderMD - 08/25/2020 4:33 AM DIET AID [place] Suicide Severity Rating Scale (C-SSRS) Entered On: 08/25/2020 5:10 EST Performed On: 08/25/2020 5:10 EST by Yajaira Magallon Rn [place] Suicide Severity Rating Scale (C-SSRS) CSSRS Past [...] on filedocumented in this encounter Care Teams Coiled Coil Inspector Relationship Specialty Start Date End Date Jay Howell MD [address] [place] [phone] PCP - General Emergency Medicine 11/12/23 documented as of this encounter
--- OUTSIDE RECORDS SUMMARY | 2025-07-24 06:48 | XMS_ITS | Encounter Summary ---
Author Organization [employer] ([place], [place], [place], [place]) Address [address] [place] [address] Care Team Providers Care Print Room Worker Name Role Phone Jay Howell MD Primary Care Provider [phone] Encounter Details Date Type Department Care Team (Late st Contact Info) Description 08/25/2020 Transcribed Document [facility] Family Medicine [address] [place] [address] ProviderJessie MD [address] [place] [address] Social History Tobacco Use Types Packs/Day Years Used Date Smoking Tobacco: Never Assessed Comments Unknown Sex and Gender Information Value Date Recorded Sex Assigned at Not on file Legal Sex Female 7:30 PM CDT Gender Identity Not on file Sexual Orientation Not on file documented as of this encounter Miscellaneous Notes * Cerner Conversion Note - Historical MD Alpa - 08/25/2020 6:23 AM GERIATRIC NURSE ASSISTANT Patient: SKYLER MONTOYA Age: 79 years Sex: [...] multiple stent placements. The patient presented to [facility] ER after recent fall with hematoma [...] Application, Topical, TID, 22 Gram, 0 Refill(s) [place] 7.5 mg-325 mg oral tablet: 1 Tab, [...] Problem list: Medical Arthritis / SNOMED CT 8254969 / Confirmed Atrial fibrillation with RVR / SNOMED CT 7292746162 / Confirmed Cataract / Patient Care / Confirmed Chest pain / SNOMED CT 24137088 / Complaint of COPD / SNOMED CT 61519202 / Confirmed Coronary artery disease / SNOMED CT 5614072634 / Confirmed Diabetes mellitus / SNOMED CT 135985131 / Confirmed GERD - Gastro-esophageal reflux disease / SNOMED CT 4406965847 / Confirmed Glaucoma / Patient Care / Confirmed Chronic anticoagulation / SNOMED CT 114253435 / Confirmed Hx of pulmonary embolus / SNOMED CT 530628229 / Confirmed High blood pressure / SNOMED CT 43981173 / Confirmed History of obstructive sleep apnea / IMO 55514345 / Confirmed Hyperlipidemia / SNOMED CT 28364398 / Confirmed Multiple renal cysts / SNOMED CT 863827426 / Confirmed Emphysema / SNOMED CT 685029861 / Confirmed Apnea, sleep / SNOMED CT 310943190 / Confirmed Stented coronary artery / SNOMED CT 8191647362 / Confirmed UTI - Urinary tract infection / SNOMED CT 8635914623 / Confirmed, Active Problems (21) Apnea, sleep [...] History: Active Cataract Glaucoma Coronary artery disease (2600132029) Stented coronary artery (2438334220) High blood pressure (72055783) Hyperlipidemia (54172278) COPD (42974955) GERD - Gastro-esophageal reflux disease (6691689988) Multiple renal cysts (434346051) UTI - Urinary tract infection (1190487179) Arthritis (7208698) Diabetes mellitus (879546004) Emphysema (621483713) Apnea, sleep (718510342) Hx of pulmonary embolus (287117663) Chronic anticoagulation (666954673) Atrial fibrillation with RVR (7303046473) Family History: Cardiomyopathy Child Stroke Brother Heart attack Brother Sister Leukemia Child Cancer Father Mother Sister Coronary heart disease Child , Significant for hypertension Procedure history: Cardiac Stent in 2010 at 70 Years. Cardiac Stent on 01/30/2008 at 67 Years. Comments: 06/13/2020 8:52 THERESET - EVA WESLEY RN PCI w/ Dale stent to D1 Coronary artery bypass graft ([id number]) in 1992 at 52 Years. femur repair. Appendectomy (803880105). uterine suspension. Hysterectomy (120666288). back surgury. Cholecystectomy (68724901). Hip replacement (9669211380). cataract surgury. Social History Social & Psychosocial [...] on filedocumented in this encounter Care Teams Print Room Worker Relationship Specialty Start Date End Date Jay Howell MD [address] [place] [phone] PCP - General Emergency Medicine 11/12/23 documented as of this encounter
--- OUTSIDE RECORDS SUMMARY | 2025-07-24 06:48 | XMS_ITS | Encounter Summary ---
Author Organization [employer] ([place], [place], [place], [place]) Address [address] [place] [address] Care Team Providers Care Superintendent Nonselling Name Role Phone Jay Howell MD Primary Care Provider [phone] Encounter Details Date Type Department Care Team (Late st Contact Info) Description 03/17/2021 Transcribed Document [facility] [place] [facility] [place] [address] ProviderJessie MD [address] [place] [address] Social History Tobacco Use Types Packs/Day Years [...] Physician Requested for Consult : FREDY YAÑEZ MD-SAMEUL PRICE - 03/17/2021 8:53 EDT documented in this encounter Plan of Treatment Not on file documented as of this encounter Visit Diagnoses Not on filedocumented in this encounter Care Teams Superintendent Nonselling Relationship Specialty Start Date End Date Jay Howell MD [address] [place] [phone] PCP - General Emergency Medicine 11/12/23 documented as of this encounter
--- OUTSIDE RECORDS SUMMARY | 2025-07-24 06:48 | XMS_ITS | Encounter Summary ---
Author Organization [employer] ([place], [place], [place], [place]) Address [address] [place] [address] Care Team Providers Care Evp Strategy Name Role Phone Jay Howell MD Primary Care Provider [phone] Encounter Details Date Type Department Care Team (Late st Contact Info) Description 08/25/2020 Transcribed Document [facility] [place] Family Medicine [address] [place] [address] ProviderJessie MD [address] [place] [address] Social History Tobacco Use Types Packs/Day Years Used Date Smoking Tobacco: Never Assessed Comments Unknown Sex and Gender Information Value Date Recorded Sex Assigned at Not on file Legal Sex Female 7:30 PM CDT Gender Identity Not on file Sexual Orientation Not on file documented as of this encounter Miscellaneous Notes * Cerner Conversion Note - Jessie Yuen MD - 08/25/2020 5:02 AM SLITTER SCORER Pain Assessment Entered On: 08/25/2020 5:48 EST [...] version of the form. Electronically signed by Gayle Finnegan Conversion Mechanical Design Technician Cerner at 02/04/2023 2:03 PM CDT documented in this encounter Plan of Treatment Not on file documented as of this encounter Visit Diagnoses Not on filedocumented in this encounter Care Teams Evp Strategy Relationship Specialty Start Date End Date Jay Howell MD [address] [place] [phone] PCP - General Emergency Medicine 11/12/23 documented as of this encounter
--- OUTSIDE RECORDS SUMMARY | 2025-07-24 06:48 | XMS_ITS | Encounter Summary ---
Author Organization [employer] ([place], [place], [place], [place]) Address [address] [place] [address] Care Team Providers Care Puppet Master Name Role Phone Jay Howell MD Primary Care Provider [phone] Encounter Details Date Type Department Care Team (Late st Contact Info) Description 08/25/2020 Transcribed Document [facility] [place] Family Medicine [address] [place] [address] ProviderJessie MD [address] [place] [address] Social History Tobacco Use Types Packs/Day Years Used Date Smoking Tobacco: Never Assessed Comments Unknown Sex and Gender Information Value Date Recorded Sex Assigned at Not on file Legal Sex Female 7:30 PM CDT Gender Identity Not on file Sexual Orientation Not on file documented as of this encounter Miscellaneous Notes * Cerner Conversion Note - Jessie Yuen MD - 08/25/2020 7:11 AM SEAM CLOSER Pain Assessment Entered On: 08/26/2020 1:56 EST [...] on filedocumented in this encounter Care Teams Puppet Master Relationship Specialty Start Date End Date Jay Howell MD [address] [place] [phone] PCP - General Emergency Medicine 11/12/23 documented as of this encounter
--- OUTSIDE RECORDS SUMMARY | 2025-07-24 06:48 | XMS_ITS | Encounter Summary ---
Author Organization [employer] ([place], [place], [place], [place]) Address [address] [place] [address] Care Team Providers Care Conveyor Monitor Name Role Phone Jay Howell MD Primary Care Provider [phone] Encounter Details Date Type Department Care Team (Late st Contact Info) Description 08/25/2020 Transcribed Document [facility] [place] Family Medicine [address] [place] [address] ProviderJessie MD [address] [place] [address] Social History Tobacco Use Types Packs/Day Years Used Date Smoking Tobacco: Never Assessed Comments Unknown Sex and Gender Information Value Date Recorded Sex Assigned at Not on file Legal Sex Female 7:30 PM CDT Gender Identity Not on file Sexual Orientation Not on file documented as of this encounter Miscellaneous Notes * Cerner Conversion Note - Jessie ProviderMD - 08/25/2020 4:33 AM RUG CLEANER ED Triage Entered On: 08/25/2020 4:45 EST [...] : 3 - Urgent Tracking Group : [facility] ED Deisi Vasquez RN - 08/25/2020 [...] 04:45:44 EST) Problems(Active) Apnea, sleep (SNOMED CT :328872642 ) Name of Problem: Apnea, sleep ; Recorder: JUAN LUIS GIL RN; Confirmation: Confirmed ; Classification: Medical ; Code: 085938771 ; Contributor System: PowerChart ; Last Updated: 11/12/2014 10:12 EST ; Life Cycle Date: 11/12/2014 ; Life Cycle Status: Active ; Vocabulary: SNOMED CT Arthritis (SNOMED CT :5578398 ) Name of Problem: Arthritis ; Recorder: KENYON CHAMBERS RN; Confirmation: Confirmed ; Classification: Medical ; Code: 8766697 ; Contributor System: PowerChart ; Last Updated: 04/10/2016 8:04 EDT ; Life Cycle Date: 08/13/2013 ; Life Cycle Status: Active ; Vocabulary: SNOMED CT Atrial fibrillation with RVR (SNOMED CT :8095190211 ) Name of Problem: Atrial fibrillation with RVR ; Recorder: SANG RICO APRN; Confirmation: Confirmed ; Classification: Medical ; Code: 7752819407 ; Contributor System: PowerChart ; Last Updated: 04/10/2016 8:05 EDT ; Life Cycle Date: 04/10/2016 ; Life Cycle Status: Active ; Responsible Provider: SANG RICO APRN; Vocabulary: SNOMED CT Blood clot (SNOMED CT :295987571 ) Name of Problem: Blood clot ; Recorder: KENYON CHAMBERS RN; Confirmation: Confirmed ; Classification: Patient Stated ; Code: 599093139 ; Contributor System: PowerChart ; Last Updated: [...] Vocabulary: Patient Care Chest pain (SNOMED CT :23826930 ) Name of Problem: Chest pain ; Recorder: SANG RICO APRN; Confirmation: Complaint of ; Classification: Medical ; Code: 08385725 ; Contributor System: [facility] ; Last Updated: 04/10/2016 8:05 EDT ; Life Cycle Status: Active ; Responsible Provider: SANG RICO APRN; Vocabulary: SNOMED CT Chronic anticoagulation (SNOMED CT :813653887 ) Name of Problem: Chronic anticoagulation ; Recorder: SANG RICO APRN; Confirmation: Confirmed ; Classification: Medical ; Code: 161010707 ; Contributor System: PowerChart ; Last Updated: 04/10/2016 8:05 EDT ; Life Cycle Date: 04/10/2016 ; Life Cycle Status: Active ; Responsible Provider: SANG RICO APRN; Vocabulary: SNOMED CT Clotting disorder (SNOMED CT :457952995 ) Name of Problem: Clotting disorder ; Recorder: KENYON CHAMBERS RN; Confirmation: Confirmed ; Classification: Patient Stated ; Code: 493915045 ; Contributor System: [facility] ; Last Updated: 03/28/2014 19:29 EDT ; Life Cycle Date: 08/13/2013 ; Life Cycle Status: Active ; Vocabulary: SNOMED CT COPD (SNOMED CT :63664508 ) Name of Problem: COPD ; Recorder: KENYON CHAMBERS RN; Confirmation: Confirmed ; Classification: Medical ; Code: 52610043 ; Contributor System: [facility] ; Last Updated: 04/10/2016 8:03 EDT ; Life Cycle Date: 08/13/2013 ; Life Cycle Status: Active ; Vocabulary: SNOMED CT Coronary artery disease (SNOMED CT :8043657136 ) Name of Problem: Coronary artery disease ; Recorder: KENYON CHAMBERS RN; Confirmation: Confirmed ; Classification: Medical ; Code: 0228263763 ; Contributor System: [facility] ; Last Updated: 04/10/2016 8:03 EDT ; Life Cycle Date: 08/13/2013 ; Life Cycle Status: Active ; Vocabulary: SNOMED CT Diabetes mellitus (SNOMED CT :668430128 ) Name of Problem: Diabetes mellitus ; Recorder: KENYON CHAMBERS RN; Confirmation: Confirmed ; Classification: Medical ; Code: 785522495 ; Contributor System: [facility] ; Last Updated: 04/10/2016 8:04 EDT ; Life Cycle Date: 08/13/2013 ; Life Cycle Status: Active ; Vocabulary: SNOMED CT Emphysema (SNOMED CT :345429412 ) Name of Problem: Emphysema ; Recorder: JUAN LUIS GIL RN; Confirmation: Confirmed ; Classification: Medical ; Code: 575341151 ; Contributor System: PowerChart ; Last Updated: 11/12/2014 10:11 EST ; Life Cycle Date: 11/12/2014 ; Life Cycle Status: Active ; Vocabulary: SNOMED CT GERD - Gastro-esophageal reflux disease (SNOMED CT :6639646100 ) Name of Problem: GERD - Gastro-esophageal reflux disease ; Recorder: KENYON CHAMBERS RN; Confirmation: Confirmed ; Classification: Medical ; Code: 7810599817 ; Contributor System: PowerChart ; Last Updated: [...] Patient Care High blood pressure (SNOMED CT :16478083 ) Name of Problem: High blood pressure ; Recorder: KENYON CHAMBERS RN; Confirmation: Confirmed ; Classification: Medical ; Code: 76362753 ; Contributor System: PowerChart ; Last Updated: 04/10/2016 8:03 EDT ; Life Cycle Date: 08/13/2013 ; Life Cycle Status: Active ; Vocabulary: SNOMED CT History of obstructive sleep apnea (IMO :14013025 ) Name of Problem: History of obstructive sleep apnea ; Recorder: SYSTEM, SYSTEM; Confirmation: Confirmed ; Classification: Medical ; Code: 71328242 ; Last Updated: 12/20/2018 12:01 EST ; Life Cycle Date: 12/20/2018 ; Life Cycle Status: Active ; Vocabulary: IMO Hx of pulmonary embolus (SNOMED CT :547449573 ) Name of Problem: Hx of pulmonary embolus ; Recorder: SANG RICO APRN; Confirmation: Confirmed ; Classification: Medical ; Code: 186931914 ; Contributor System: PowerChart ; Last Updated: 04/10/2016 8:05 EDT ; Life Cycle Date: 04/10/2016 ; Life Cycle Status: Active ; Responsible Provider: SANG RICO APRN; Vocabulary: SNOMED CT Hyperlipidemia (SNOMED CT :61692594 ) Name of Problem: Hyperlipidemia ; Recorder: KENYON CHAMBERS RN; Confirmation: Confirmed ; Classification: Medical ; Code: 75445533 ; Contributor System: PowerChart ; Last Updated: 04/10/2016 8:03 EDT ; Life Cycle Date: 08/13/2013 ; Life Cycle Status: Active ; Vocabulary: SNOMED CT Multiple renal cysts (SNOMED CT :773628736 ) Name of Problem: Multiple renal cysts ; Recorder: KENYON CHAMBERS RN; Confirmation: Confirmed ; Classification: Medical ; Code: 675360103 ; Contributor System: PowerChart ; Last Updated: 04/10/2016 8:04 EDT ; Life Cycle Date: 08/13/2013 ; Life Cycle Status: Active ; Vocabulary: SNOMED CT Stented coronary artery (SNOMED CT :4476283876 ) Name of Problem: Stented coronary artery ; Recorder: KENYON CHAMBERS RN; Confirmation: Confirmed ; Classification: Medical ; Code: 2170216855 ; Contributor System: PowerChart ; Last Updated: 04/10/2016 8:03 EDT ; Life Cycle Date: 08/13/2013 ; Life Cycle Status: Active ; Vocabulary: SNOMED CT UTI - Urinary tract infection (SNOMED CT :9538409381 ) Name of Problem: UTI - Urinary tract infection ; Recorder: KENYON CHAMBERS RN; Confirmation: Confirmed ; Classification: Medical ; Code: 2043744346 ; Contributor System: PowerChart ; Last Updated: 04/10/2016 8:04 EDT ; Life Cycle Date: 08/13/2013 ; Life Cycle Status: Active ; Vocabulary: SNOMED CT Diagnoses(Active) Medical screening exam Date: 08/25/2020 ; Diagnosis Type: Reason For Visit ; Confirmation: Complaint of ; Clinical Dx: Medical screening exam ; Classification: Medical ; Clinical Service: Non-Specified ; Code: PNED ; Probability: 0 ; Diagnosis Code: [id number] ED Height and Weight Height Source : Stated Height Entry Format : [place] Height, Feet : 5 ft(Converted to: 152 cm, 60 Inch) Height, Inches : 3 Inch(Converted to: 0 ft 3 Inch, 7.62 cm) Clinical Height : 160.02 cm Weight Source, ED : Critical estimated dosing weight Weight Entry Format : [place] Weight, Pounds : 152 lb Clinical Dosing Weight : 69.09 kg Body Surface Area (BSA) : 1.72 m2 Body Mass Index : 27 kg/m2 (HI) [place] Body Weight (IBW) : 52.02 kg Deisi Vasqeuz RN - 08/25/2020 4:41 EST Electronically signed by [facility], [facility] Conversion Video Game Maker Cerner at 02/04/2023 1:59 PM CDT documented in this encounter Plan of Treatment Not on file documented as of this encounter Visit Diagnoses Not on filedocumented in this encounter Care Teams Conveyor Monitor Relationship Specialty Start Date End Date Jay Howell MD [address] [place] [phone] PCP - General Emergency Medicine 11/12/23 documented as of this encounter
--- OUTSIDE RECORDS SUMMARY | 2025-07-24 06:48 | XMS_ITS | Encounter Summary ---
Author Organization [employer] ([place], [place], [place], [place]) Address [address] [place] [address] Care Team Providers Care Junior Paralegal Name Role Phone Jay Howell MD Primary Care Provider [phone] Encounter Details Date Type Department Care Team (Late st Contact Info) Description 03/17/2021 Transcribed Document [facility] [place] [facility] [place] [address] ProviderJessie MD [address] [employer], [place] [address] Social History Tobacco Use Types Packs/Day Years [...] on filedocumented in this encounter Care Teams Junior Paralegal Relationship Specialty Start Date End Date Jay Howell MD [address] [place] [phone] PCP - General Emergency Medicine 11/12/23 documented as of this encounter
--- OUTSIDE RECORDS SUMMARY | 2025-07-24 06:48 | XMS_ITS | Encounter Summary ---
Author Organization [employer] ([place], [place], [place], [place]) Address [address] [place] [address] Care Team Providers Care Product/Industry Consultant Name Role Phone Jay Howell MD Primary Care Provider [phone] Encounter Details Date Type Department Care Team (Late st Contact Info) Description 03/18/2021 Transcribed Document [facility] [place] [address] [place] [address] ProviderJessie MD [address] [place] [phone] Social History Tobacco Use Types Packs/Day Years [...] 03/18/2021 15:01 EDT by Krystina Giang V, Dielectric Tester Research Administrator Care Management Progress Note Discharge Arrangements : [...] Multidisciplinary Rounds? : Yes Krystina Giang V Dielectric Tester [facility] [place] 03/18/2021 15:01 EDT Narrative Progress Note [...] to follow dc plan Krystina Giang V Dielectric Tester [facility] 03/18/2021 15:01 EDT Electronically signed by Sivan [facility] Conversion Social Service Assistant Cerner at 02/04/2023 1:55 PM CDT documented in this encounter Plan of Treatment Not on file documented as of this encounter Visit Diagnoses Not on filedocumented in this encounter Care Teams Product/Industry Consultant Relationship Specialty Start Date End Date Jay Howell MD [address] [place] [phone] PCP - General Emergency Medicine 11/12/23 documented as of this encounter
--- OUTSIDE RECORDS SUMMARY | 2025-07-24 06:48 | XMS_ITS | Encounter Summary ---
Author Organization [employer] ([place], [place], [place], [place]) Address [address] [place] [address] Care Team Providers Care Senior Account Director Name Role Phone Jay Howell MD Primary Care Provider [phone] Encounter Details Date Type Department Care Team (Late st Contact Info) Description 03/17/2021 Transcribed Document [facility] [place] [address] ProviderJessie MD [address] [place], [place] [address] Social History Tobacco Use Types Packs/Day Years [...] 03/17/2021 15:21 EDT Electronically signed by Sivan [facility] Conversion Tile Designer Cerner at 02/04/2023 2:16 PM CDT documented in this encounter Plan of Treatment Not on file documented as of this encounter Visit Diagnoses Not on filedocumented in this encounter Care Teams Senior Account Director Relationship Specialty Start Date End Date Jay Howell MD [address] [place] [phone] PCP - General Emergency Medicine 11/12/23 documented as of this encounter
--- OUTSIDE RECORDS SUMMARY | 2025-07-24 06:48 | XMS_ITS | Encounter Summary ---
Author Organization [employer] ([place], [place], [place], [place]) Address [address] [place] [address] Care Team Providers Care Enroller Name Role Phone Jay Howell MD Primary Care Provider [phone] Encounter Details Date Type Department Care Team (Late st Contact Info) Description 03/16/[address] [facility] [place] [address] [place] [address] ProviderJessie MD [address] [place] [phone] Social History Tobacco Use Types Packs/Day Years [...] ALLERGIES: Macrobid and morphine. HOME MEDICATIONS: 1. [place] as needed. 2. Xanax as needed. 3. [...] Chart was reviewed. Time spent, 60 minutes. /[id number] Yasser Zohary, MD YZ/AQ / YGonzalo / MODL CC: Dr. Avtar Moeller Electronically signed by [facility], [facility] Conversion Bankman Cerner at 02/04/2023 2:22 PM CDT documented in this encounter Plan of Treatment Not on file documented as of this encounter Visit Diagnoses Not on filedocumented in this encounter Care Teams Enroller Relationship Specialty Start Date End Date Jay Howell MD [address] [place] [phone] PCP - General Emergency Medicine 11/12/23 documented as of this encounter
--- OUTSIDE RECORDS SUMMARY | 2025-07-24 06:48 | XMS_ITS | Encounter Summary ---
Author Organization [employer] ([place], [place], [place], [place]) Address [address] [place] [address] Care Team Providers Care Customer Account Manager Name Role Phone Jay Howell MD Primary Care Provider [phone] Encounter Details Date Type Department Care Team (Late st Contact Info) Description 03/18/2021 Transcribed Document [facility] [place] [address] [place] [address] ProviderJessie MD [address] [place] [phone] Social History Tobacco Use Types Packs/Day Years [...] filedocumented in this encounter Care Teams Customer Account Manager Relationship Specialty Start Date End Date Jay Howell MD [address] [place] [phone] PCP - General Emergency Medicine 11/12/23 documented as of this encounter
--- OUTSIDE RECORDS SUMMARY | 2025-07-24 06:48 | XMS_ITS | Encounter Summary ---
Author Organization [employer] ([place], [place], [place], [place]) Address [address] [place] [address] Care Team Providers Care Test Administrator Name Role Phone Jay Howell MD Primary Care Provider [phone] Encounter Details Date Type Department Care Team (Late st Contact Info) Description 03/17/2021 Transcribed Document [facility] Cardiology [address] [place], [place] [phone] Jorje Bení[place] [address] [place] [address] [address] [place] [address] Social History Tobacco Use Types Packs/Day Years [...] 1940 Associated Diagnoses: None Author: JORJE BENÍTEZ MD-[facility] Basic Information Clinical Science Consultant: Dr. Adry Dumas Chief Complaint Syncope History of Present Illness The patient is an unfortunate 80-year-old female with a known history atherosclerotic cardiovascular disease???status post coronary artery bypass grafting as well as multiple PCI's most recently 2019, hypertension, dyslipidemia, paroxysmal/persistent atrial fibrillation on chronic warfarin, history of carotid disease, anxiety, diabetes mellitus type 2, COPD, and DVT/pulmonary embolism who presented to [facility] after suffering a several episode at home. [...] Vitamins oral tablet 1 Tab, Oral, Daily Lookout 7.5 mg-325 mg oral tablet 1 Tab, [...] Bedtime Problem list: All Problems Arthritis / 3129458 / Confirmed Atrial fibrillation with RVR / 4671995330 / Confirmed Blood clot / 273183518 / Confirmed Cataract / Confirmed Chest pain / 02270511 / Complaint of Clotting disorder / 987589593 / Confirmed COPD / 89666838 / Confirmed Coronary artery disease / 0029142108 / Confirmed Diabetes mellitus / 887246948 / Confirmed GERD - Gastro-esophageal reflux disease / 6002086367 / Confirmed Glaucoma / Confirmed Chronic anticoagulation / 072009477 / Confirmed Hx of pulmonary embolus / 294987048 / Confirmed High blood pressure / 00603491 / Confirmed History of obstructive sleep apnea / 77418691 / Confirmed Hyperlipidemia / 68167575 / Confirmed Multiple renal cysts / 919515272 / Confirmed Emphysema / 746621362 / Confirmed Apnea, sleep / 138000728 / Confirmed Stented coronary artery / 6671870799 / Confirmed Resolved: UTI - Urinary tract infection / 9166821746 Canceled: History of obstructive sleep apnea / 16555146 Histories No education data available. Social & [...] History: Active Cataract Glaucoma Coronary artery disease (2205937438) Stented coronary artery (9498685473) High blood pressure (89627778) Hyperlipidemia (20550503) COPD (84097290) GERD - Gastro-esophageal reflux disease (6654695789) Multiple renal cysts (994193122) Arthritis (2258550) Diabetes mellitus (522899645) Emphysema (967031497) Apnea, sleep (065285657) Hx of pulmonary embolus (795634007) Chronic anticoagulation (883022411) Atrial fibrillation with RVR (8753261089) Resolved UTI - Urinary tract infection (8195428493): Resolved. Family History: Cardiomyopathy Child Stroke Brother Heart attack Brother Sister Leukemia Child Cancer Father Mother Sister Coronary heart disease Child Procedure history: Cardiac Stent on 12/20/2018 at 77 Years. Comments: 03/17/2021 9:03 EVA LAWS RN HARVINDER to LAD Cardiac Stent in 2010 at 70 Years. Cardiac Stent on 01/30/2008 at 67 Years. Comments: 06/13/2020 8:52 EVA LAWS RN PCI w/ [place] stent to D1 Coronary artery bypass graft ([id number]) in 1992 at 52 Years. Appendectomy (812822994). back surgury. cataract surgury. Cholecystectomy (45650960). femur repair. Hip replacement (6991271422). Hysterectomy (198607879). uterine suspension. Physical Examination VS/Measurements Vitals Signs [...] Hours) ProBNP 576 pg/mL [place] 03/17/2021 04:45 Blood Gases (Current Encounter/Past 24 Hours) No Blood Gas Results Found (Past 24 Hours) Radiology Results (Last 48 hours) [id number] -- 03/16/2021 15:29 CR Hip Uni Comp [...] on filedocumented in this encounter Care Teams Test Administrator Relationship Specialty Start Date End Date Jay Howell MD [address] [place] [phone] PCP - General Emergency Medicine 11/12/23 documented as of this encounter
--- OUTSIDE RECORDS SUMMARY | 2025-07-24 06:48 | XMS_ITS | Encounter Summary ---
Author Organization [employer] ([place], [place], [place], [place]) Address [address] [place] [address] Care Team Providers Care Mobile Security Architect Name Role Phone Jay Howell MD Primary Care Provider [phone] Encounter Details Date Type Department Care Team (Late st Contact Info) Description 03/17/2021 Transcribed Document [facility] [place] [facility] [place] [address] ProviderJessie MD [address] [place], [place] [phone] Social History Tobacco Use Types Packs/Day Years [...] - 03/17/2021 12:33 EDT Electronically signed by [facility], [facility] Conversion Press Tool Maker Cerner at 02/04/2023 1:58 PM CDT documented in this encounter Plan of Treatment Not on file documented as of this encounter Visit Diagnoses Not on filedocumented in this encounter Care Teams Mobile Security Architect Relationship Specialty Start Date End Date Jay Howell MD [address] [place] [phone] PCP - General Emergency Medicine 11/12/23 documented as of this encounter
--- OUTSIDE RECORDS SUMMARY | 2025-07-24 06:48 | XMS_ITS | Encounter Summary ---
Author Organization [employer] ([place], [place], [place], [place]) Address [address] [place] [address] Care Team Providers Care Cause Analyst Name Role Phone Jay Howell MD Primary Care Provider [phone] Encounter Details Date Type Department Care Team (Late st Contact Info) Description 03/17/2021 Transcribed Document [facility] [place] [address] [place] [address] ProviderJessie MD [address] [place] [address] Social History Tobacco Use Types Packs/Day Years [...] Insurance 1 Health Plan: MEDICARE Policy Number: [id number] Authorization Number: Insurance 2 Health Plan: AARP N Policy Number: [id number] Authorization Number: Insurance Primary Name : MEDICARE Policy Number: [id number] Authorized Service Begin Date-Primary : 03/16/2021 EDT Historical Authorization Comments-Primary : No Authorization Comments Found MARILYNN RAMÍREZ, RN-Utilization Review - 03/17/2021 12:48 EDT Electronically signed by Abel Finnegan Conversion Machining And Assembly Supervisor Cerner at 02/04/2023 2:08 PM CDT documented in this encounter Plan of Treatment Not on file documented as of this encounter Visit Diagnoses Not on filedocumented in this encounter Care Teams Cause Analyst Relationship Specialty Start Date End Date Jay Howell MD [address] [place] [phone] PCP - General Emergency Medicine 11/12/23 documented as of this encounter
--- OUTSIDE RECORDS SUMMARY | 2025-07-24 06:48 | XMS_ITS | Encounter Summary ---
Author Organization [employer] ([place], [place], [place], [place]) Address [address] [place] [address] Care Team Providers Care Solid Waste Technician Name Role Phone Jay Howell MD Primary Care Provider [phone] Encounter Details Date Type Department Care Team (Late st Contact Info) Description 03/17/2021 Transcribed Document [facility] [place] [facility] [place] [address] ProviderJessie MD [address] [place], [place] [address] Social History Tobacco Use Types Packs/Day Years [...] on filedocumented in this encounter Care Teams Solid Waste Technician Relationship Specialty Start Date End Date Jay Howell MD [address] [place] [phone] PCP - General Emergency Medicine 11/12/23 documented as of this encounter
--- OUTSIDE RECORDS SUMMARY | 2025-07-24 06:48 | XMS_ITS | Encounter Summary ---
Author Organization [employer] ([place], [place], [place], [place]) Address [address] [place] [address] Care Team Providers Care Desk Clerk Name Role Phone Jay Howell MD Primary Care Provider [phone] Encounter Details Date Type Department Care Team (Late st Contact Info) Description 03/18/2021 Transcribed Document [facility] [place] [place] [address] [place] [address] ProviderJessie MD [address] [place] [phone] Social History Tobacco Use Types Packs/Day Years [...] EVA RICHARDSON RN - 03/18/2021 13:27 EDT documented in this encounter Plan of Treatment Not on file documented as of this encounter Visit Diagnoses Not on filedocumented in this encounter Care Teams Desk Clerk Relationship Specialty Start Date End Date Jay Howell MD [address] [place] [phone] PCP - General Emergency Medicine 11/12/23 documented as of this encounter
--- OUTSIDE RECORDS SUMMARY | 2025-07-24 06:48 | XMS_ITS | Encounter Summary ---
Author Organization [employer] ([place], [place], [place], [place]) Address [address] [place] [address] Care Team Providers Care Patient Coordinator Name Role Phone Jay Howell MD Primary Care Provider [phone] Encounter Details Date Type Department Care Team (Late st Contact Info) Description 03/17/2021 Transcribed Document [facility] [place] [address] [place] [address] ProviderJessie MD [address] [place], [place] [phone] Social History Tobacco Use Types Packs/Day Years [...] within reach RN/PCT Informed Comment : RN: Eyrn approved session and was informed of patient's [...] PHYSICAL THERAPIST NON-EXEMPT - 03/18/2021 12:18 EDT Detention Goals Mobility/Bed Mobility LTG PT Grid Goal [...] on filedocumented in this encounter Care Teams Patient Coordinator Relationship Specialty Start Date End Date Jay Howell MD [address] [place] [phone] PCP - General Emergency Medicine 11/12/23 documented as of this encounter
--- OUTSIDE RECORDS SUMMARY | 2025-07-24 06:48 | XMS_ITS | Encounter Summary ---
Author Organization [employer] ([place], [place], [place], [place]) Address [address] [place] [address] Care Team Providers Care C Iron Worker Name Role Phone Jay Howell MD Primary Care Provider [phone] Encounter Details Date Type Department Care Team (Late st Contact Info) Description 08/25/[address] [facility] [place] [address] [place] [address] ProviderJessie MD [address] [place] [address] Social History Tobacco Use Types Packs/Day Years Used Date Smoking Tobacco: Never Assessed Comments Unknown Sex and Gender Information Value Date Recorded Sex Assigned at Not on file Legal Sex Female 7:30 PM CDT Gender Identity Not on file Sexual Orientation Not on file documented as of this encounter Miscellaneous Notes * Cerner Conversion Note - Historical ProviderMD - 08/25/2020 6:14 PM STRUCTURAL STEEL WORKER HELPER Admission History, Adult Entered On: 08/25/2020 18:21 [...] Ambulatory Legal Guardian : Spouse Support Person/Patient Ore Tester : Yes Support Person/Pt Rep Name : Willard Contact Password : Marvin Support Person/Pt Rep Contact Information : [phone] Want Family/Rep/Phys Notified of Admit : No [...] Obtained From : Patient Primary Language : Indian Preferred Communication Mode : Verbal Communication Barrier : None Correctional Treatment Specialist Needed : No ROMEO PADRON RN - [...] Level : 46 or > High Risk [place] Fall Interventions : Adequate lighting, Assistive devices [...] Source : Stated Height Entry Format : [place] Height, Feet : 5 ft(Converted to: 152 cm, 60 Inch) Height, Inches : 3 Inch(Converted to: 0 ft 3 Inch, 7.62 cm) Clinical Height : 160.02 cm Weight Source : Bed scale Weight Entry Format : [place] Clinical Dosing Weight : 69.09 kg Weight, Pounds : 152 lb Body Surface Area (BSA) : 1.72 m2 Body Mass Index : 27 kg/m2 (HI) [place] Body Weight : 52 kg ROMEO PADRON [...] ROMEO PADRON RN - 08/25/2020 18:[address] [place] Suicide Severity Rating Scale (C-SSRS) CSSRS Past [...] 08/25/2020 18:14 EST Electronically signed by Sivan [facility] Conversion [place]arrow Worker Helper Cerner at 02/04/2023 2:14 PM CDT documented in this encounter Plan of Treatment Not on file documented as of this encounter Visit Diagnoses Not on filedocumented in this encounter Care Teams C Iron Worker Relationship Specialty Start Date End Date Jay Howell MD [address] [place] [phone] PCP - General Emergency Medicine 11/12/23 documented as of this encounter
--- OUTSIDE RECORDS SUMMARY | 2025-07-24 06:48 | XMS_ITS | Encounter Summary ---
Author Organization [employer] ([place], [place], [place], [place]) Address [address] [place] [address] Care Team Providers Care Laboratory Director Name Role Phone Jay Howell MD Primary Care Provider [phone] Encounter Details Date Type Department Care Team (Late st Contact Info) Description 03/17/2021 Transcribed Document [facility] [place] [address] [place] [address] ProviderJessie MD [address] [place] [address] Social History Tobacco Use Types Packs/Day Years [...] pain. SOCIAL HISTORY: The patient lives in [place] with her . She has 3 children, 2 of whom are living. 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 She still drives and walks independently. [...] are 0 to 1+. Coordination shows intact [id number] on the left and [id number] on both sides. Gait was not tested. [...] her . I will follow with you. /[id number] Arron Clarke MD WSB/AQ / WSB / MODL /[id number] Electronically signed by Sivan [facility] Conversion Economics Instructor Cerner at 02/04/2023 2:15 PM CDT documented in this encounter Plan of Treatment Not on file documented as of this encounter Visit Diagnoses Not on filedocumented in this encounter Care Teams Laboratory Director Relationship Specialty Start Date End Date Jay Howell MD [address] [place] [phone] PCP - General Emergency Medicine 11/12/23 documented as of this encounter
--- OUTSIDE RECORDS SUMMARY | 2025-07-24 06:48 | XMS_ITS | Encounter Summary ---
Author Organization [employer] ([place], [place], [place], [place]) Address [address] [place] [address] Care Team Providers Care Teacher Of The Hearing Impaired Name Role Phone Jay Howell MD Primary Care Provider [phone] Encounter Details Date Type Department Care Team (Late st Contact Info) Description 03/17/2021 Transcribed Document [facility] [place] [facility] [place] [address] ProviderJessie MD [address] [place] [phone] Social History Tobacco Use Types Packs/Day Years [...] filedocumented in this encounter Care Teams Teacher Of The Hearing Impaired Relationship Specialty Start Date End Date Jay Howell MD [address] [place] [phone] PCP - General Emergency Medicine 11/12/23 documented as of this encounter
--- OUTSIDE RECORDS SUMMARY | 2025-07-24 06:48 | XMS_ITS | Encounter Summary ---
Author Organization [employer] ([place], [place], [place], [place]) Address [address] [place] [address] Care Team Providers Care Retail Sales Professional Name Role Phone Jay Howell MD Primary Care Provider [phone] Encounter Details Date Type Department Care Team (Late st Contact Info) Description 08/25/2020 Transcribed Document [facility] [place] [address] [place] [address] ProviderJessie MD [address] [place] [address] Social History Tobacco Use Types Packs/Day Years Used Date Smoking Tobacco: Never Assessed Comments Unknown Sex and Gender Information Value Date Recorded Sex Assigned at Not on file Legal Sex Female 7:30 PM CDT Gender Identity Not on file Sexual Orientation Not on file documented as of this encounter Miscellaneous Notes * Cerner Conversion Note - Jessie Yuen MD - 08/25/2020 5:05 AM SUPERVISOR TRAVEL INFORMATION CENTER Patient: SKYLER MONTOAY Age: 79 years Sex: Female : 1940 [...] 06/13/2020 8:52 EVA LAWS RN PCI w/ [place] stent to D1 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 femur repair. Appendectomy ([id number]). uterine suspension. Hysterectomy ([id number]). back surgury. Cholecystectomy ([id number]). Hip replacement ([id number]). cataract surgury. . Family history: Cardiomyopathy Child [...] EST Height Source Stated Height Entry Format [place] Height/Length, ALBANIAN (ft) 5 ft Height/Length ALBANIAN 3 Inch CLINICALHEIGHT 160.02 cm [place] Body Weight 52.02 kg Weight Source, ED Critical estimated dosing weight Weight Entry Format [place] Weight Somali lb 152 lb CLINICALWEIGHT 69.09 kg Body [...] Stain: Ordered ED Fall Risk Documented: ED accounting associate: Normal Saline 1,000 mL: 75 mL/Hr, IntraVENous [...] Application, Topical, TID, 22 Gram, 0 Refill(s) Anderson 7.5 mg-325 mg oral tablet: 1 Tab, [...] % 32.7 % Lymph # 1.98 x10(3)/uL Morton % 10.2 % HI Morton # 0.62 K/uL Eos % 0.0 % [...] DAVALOS MD-INT . Electronically signed by Sivan [facility] Conversion Soil And Plant Scientist Cerner at 02/04/2023 2:03 PM CDT documented in this encounter Plan of Treatment Not on file documented as of this encounter Visit Diagnoses Not on filedocumented in this encounter Care Teams Retail Sales Professional Relationship Specialty Start Date End Date Jay Howell MD [address] [place] [phone] PCP - General Emergency Medicine 11/12/23 documented as of this encounter
--- OUTSIDE RECORDS SUMMARY | 2025-07-24 06:48 | XMS_ITS | Encounter Summary ---
Author Organization [employer] ([place], [place], [place], [place]) Address [address] [place] [address] Care Team Providers Care Fagot Heater Name Role Phone Jay Howell MD Primary Care Provider [phone] Encounter Details Date Type Department Care Team (Late st Contact Info) Description 03/17/2021 Transcribed Document [facility] [place] [facility] [place] [address] ProviderJessie MD [address] [place] [phone] Social History Tobacco Use Types Packs/Day Years [...] 03/17/2021 14:49 EDT Electronically signed by Sivan [facility] Conversion Tile Decorator Cerner at 02/04/2023 2:21 PM CDT documented in this encounter Plan of Treatment Not on file documented as of this encounter Visit Diagnoses Not on filedocumented in this encounter Care Teams Fagot Heater Relationship Specialty Start Date End Date Jay Howell MD [address] [place] [phone] PCP - General Emergency Medicine 11/12/23 documented as of this encounter
--- OUTSIDE RECORDS SUMMARY | 2025-07-24 06:48 | XMS_ITS | Encounter Summary ---
Author Organization [employer] ([place], [place], [place], [place]) Address [address] [place] [address] Care Team Providers Care Separator Operator Shellfish Meats Name Role Phone Jay Howell MD Primary Care Provider [phone] Encounter Details Date Type Department Care Team (Late st Contact Info) Description 03/16/2021 Transcribed Document [facility] [place] [facility] [place] [address] ProviderJessie MD [address] [place] [phone] Social History Tobacco Use Types Packs/Day Years [...] of the form. Electronically signed by Sivan [facility] Conversion Graphic Arts Instructor Cerner at 02/06/2023 12:48 PM CDT documented in this encounter Plan of Treatment Not on file documented as of this encounter Visit Diagnoses Not on filedocumented in this encounter Care Teams Separator Operator Shellfish Meats Relationship Specialty Start Date End Date Jay Howell MD [address] [place] [phone] PCP - General Emergency Medicine 11/12/23 documented as of this encounter
--- OUTSIDE RECORDS SUMMARY | 2025-07-24 06:48 | XMS_ITS | Encounter Summary ---
Author Organization [employer] ([place], [place], [place], [place]) Address [address] [place] [address] Care Team Providers Care Leaf Sucker Operator Name Role Phone Jay Howell MD Primary Care Provider [phone] Encounter Details Date Type Department Care Team (Late st Contact Info) Description 08/25/2020 Transcribed Document [facility] [place] [address] [place] [address] ProviderJessie MD [address] [place] [address] Social History Tobacco Use Types Packs/Day Years Used Date Smoking Tobacco: Never Assessed Comments Unknown Sex and Gender Information Value Date Recorded Sex Assigned at Not on file Legal Sex Female 7:30 PM CDT Gender Identity Not on file Sexual Orientation Not on file documented as of this encounter Miscellaneous Notes * Cerner Conversion Note - Historical MD Alpa - 08/25/2020 10:53 AM GROUND OPERATIONS SUPERVISOR DATE OF CONSULTATION: 08/25/2020 INFECTIOUS DISEASE CONSULTATION [...] team following as above. Discussed with them. /[id number] MD VANESSA Campa/AQ / VANESSA / MODL /[id number] CC: MD David Campa MD Electronically signed by [facility] Conversion Health Education Teacher Cerner at 02/04/2023 2:05 PM CDT documented in this encounter Plan of Treatment Not on file documented as of this encounter Visit Diagnoses Not on filedocumented in this encounter Care Teams Leaf Sucker Operator Relationship Specialty Start Date End Date Jay Howell MD [address] [place] [phone] PCP - General Emergency Medicine 11/12/23 documented as of this encounter
--- OUTSIDE RECORDS SUMMARY | 2025-07-24 06:48 | XMS_ITS | Encounter Summary ---
Author Organization [employer] ([place], [place], [place], [place]) Address [address] [place] [address] Care Team Providers Care Dryer Feeder Name Role Phone Jay Howell MD Primary Care Provider [phone] Encounter Details Date Type Department Care Team (Late st Contact Info) Description 03/18/2021 Transcribed Document [facility] Cardiology [address] [place], [place] [phone] Jorje Bení[place] [address] [place] [address] [address] [place] [address] Social History Tobacco Use Types Packs/Day Years [...] None Author: JORJE BENÍTEZ MD-CAR Basic Information Ingredient Mixer: Dr. Adry Dumas Subjective NAD Health Status [...] Vitamins oral tablet 1 Tab, Oral, Daily [place] 7.5 mg-325 mg oral tablet 1 Tab, [...] (Current Encounter/Past 24 Hours) ProBNP 576 pg/mL [place] 03/17/2021 04:45 Radiology Results (Last 48 hours) [id number] -- 03/17/2021 13:59 CR Hip Uni Comp [...] on filedocumented in this encounter Care Teams Dryer Feeder Relationship Specialty Start Date End Date Jay Howell MD [address] [place] [phone] PCP - General Emergency Medicine 11/12/23 documented as of this encounter
--- OUTSIDE RECORDS SUMMARY | 2025-07-24 06:48 | XMS_ITS | Encounter Summary ---
Author Organization [employer] ([place], [place], [place], [place]) Address [address] [place] [address] Care Team Providers Care Assistant Superintendent For Curriculum Name Role Phone Jay Howell MD Primary Care Provider [phone] Encounter Details Date Type Department Care Team (Late st Contact Info) Description 08/25/2020 Transcribed Document [facility] [place] [address] [place] [address] ProviderJessie MD [address] [place] [address] Social History Tobacco Use Types Packs/Day Years Used Date Smoking Tobacco: Never Assessed Comments Unknown Sex and Gender Information Value Date Recorded Sex Assigned at Not on file Legal Sex Female 7:30 PM CDT Gender Identity Not on file Sexual Orientation Not on file documented as of this encounter Miscellaneous Notes * Cerner Conversion Note - Jessie Yuen MD - 08/25/2020 7:20 AM RISK MGR Patient: SKYLER MONTOYA Age: 79 years Sex: [...] with her . She has a strong congregational treasure. She alex like to stay Full [...] filedocumented in this encounter Care Teams Assistant Superintendent For Curriculum Relationship Specialty Start Date End Date Jay Howell MD [address] [place] [phone] PCP - General Emergency Medicine 11/12/23 documented as of this encounter
--- OUTSIDE RECORDS SUMMARY | 2025-07-24 06:48 | XMS_ITS | Encounter Summary ---
Author Organization [employer] ([place], [place], [place], [place]) Address [address] [place] [address] Care Team Providers Care End Packer Name Role Phone Jay Howell MD Primary Care Provider [phone] Encounter Details Date Type Department Care Team (Late st Contact Info) Description 08/25/2020 Transcribed Document [facility] [place] [facility] [place] [address] ProviderJessie MD [address] [place] [address] Social History Tobacco Use Types Packs/Day Years Used Date Smoking Tobacco: Never Assessed Comments Unknown Sex and Gender Information Value Date Recorded Sex Assigned at Not on file Legal Sex Female 7:30 PM CDT Gender Identity Not on file Sexual Orientation Not on file documented as of this encounter Miscellaneous Notes * Cerner Conversion Note - Historical ProviderMD - 08/25/2020 10:42 AM CHILD LIFE ASSISTANT Patient: SKYLER MONTOYA Age: 79 years Sex: Female : 1940 Associated Diagnoses: None Author: KAVITHA HIDALGO MD-INF ID CONSULT DICTATED Electronically signed by Gayle Finnegan Conversion Superintendent Landfill Operations Cerner at 02/04/2023 2:09 PM CDT documented in this encounter Plan of Treatment Not on file documented as of this encounter Visit Diagnoses Not on filedocumented in this encounter Care Teams End Packer Relationship Specialty Start Date End Date Jay Howell MD [address] [place] [phone] PCP - General Emergency Medicine 11/12/23 documented as of this encounter
--- OUTSIDE RECORDS SUMMARY | 2025-07-24 06:48 | XMS_ITS | Encounter Summary ---
Author Organization [employer] ([place], [place], [place], [place]) Address [address] [place] [address] Care Team Providers Care Microstrategy Developer Name Role Phone Jay Howell MD Primary Care Provider [phone] Encounter Details Date Type Department Care Team (Late st Contact Info) Description 03/16/2021 Transcribed Document [facility] [place] [address] [place] [address] ProviderJessie MD [address] [place], [place] [phone] Social History Tobacco Use Types Packs/Day Years [...] on filedocumented in this encounter Care Teams Microstrategy Developer Relationship Specialty Start Date End Date Jay Howell MD [address] [place] [phone] PCP - General Emergency Medicine 11/12/23 documented as of this encounter
--- OUTSIDE RECORDS SUMMARY | 2025-07-24 06:48 | XMS_ITS | Encounter Summary ---
Author Organization [employer] ([place], [place], [place], [place]) Address [address] [place] [address] Care Team Providers Care Powder Monkey Name Role Phone Jay Howell MD Primary Care Provider [phone] Encounter Details Date Type Department Care Team (Late st Contact Info) Description 08/25/2020 Transcribed Document [facility] [place] [address] [place] [address] ProviderJessie MD [address] [place] [address] Social History Tobacco Use Types Packs/Day Years Used Date Smoking Tobacco: Never Assessed Comments Unknown Sex and Gender Information Value Date Recorded Sex Assigned at Not on file Legal Sex Female 7:30 PM CDT Gender Identity Not on file Sexual Orientation Not on file documented as of this encounter Miscellaneous Notes * Cerner Conversion Note - Jessie ProviderMD - 08/25/2020 4:33 AM HYDROMETER FINISHER ED Assessment Entered On: 08/25/2020 5:16 EST Performed On: 08/25/2020 5:12 EST by Yajaira Magallon, teaching fellow Quick Look Assessment Level of Consciousness : [...] 08/25/2020 5:12 EST Electronically signed by Sivan, [facility] Conversion Dispatch Clerk Cerner at 02/04/2023 2:02 PM CDT documented in this encounter Plan of Treatment Not on file documented as of this encounter Visit Diagnoses Not on filedocumented in this encounter Care Teams Powder Monkey Relationship Specialty Start Date End Date Jay Howell MD [address] [place] [phone] PCP - General Emergency Medicine 11/12/23 documented as of this encounter
--- OUTSIDE RECORDS SUMMARY | 2025-07-24 06:48 | XMS_ITS | Encounter Summary ---
Author Organization [employer] ([place], [place], [place], [place]) Address [address] [place] [address] Care Team Providers Care Instructor Substitute Cosmetology Name Role Phone Jay [place] MD Primary Care Provider [phone] Encounter Details Date Type Department Care Team (Late st Contact Info) Description 03/17/2021 Transcribed Document [facility] [place] Family Medicine [facility] [place] [address] ProviderJessie MD [address] [place] [address] [phone] Social History Tobacco Use Types Packs/Day Years Used Date Smoking Tobacco: Never Assessed Comments Unknown Sex and Gender Information Value Date Recorded Sex Assigned at Not on file Legal Sex Female 7:30 PM CDT Gender Identity Not on file Sexual Orientation Not on file documented as of this encounter Miscellaneous Notes * Cerner Conversion Note - Historical ProviderMD - 03/17/2021 2:00 AM CDT Milk Deliverer Details Entered On: 03/17/2021 3:32 EDT Performed [...] - 03/17/2021 3:32 EDT Electronically signed by [facility], [facility] Conversion Respiratory Therapy Technician Cerner at 02/04/2023 2:22 PM CDT documented in this encounter Plan of Treatment Not on file documented as of this encounter Visit Diagnoses Not on filedocumented in this encounter Care Teams Instructor Substitute Cosmetology Relationship Specialty Start Date End Date Jay [place] MD [address] [place] [phone] PCP - General Emergency Medicine 11/12/23 documented as of this encounter
--- OUTSIDE RECORDS SUMMARY | 2025-07-24 06:48 | XMS_ITS | Encounter Summary ---
Author Organization [employer] ([place], [place], [place], [place]) Address [address] [place] [address] Care Team Providers Care Construction Or Leak Gang Laborer Name Role Phone Jay [place] MD Primary Care Provider [phone] Encounter Details Date Type Department Care Team (Late st Contact Info) Description 03/17/2021 Transcribed Document [facility] Radiology 1 [place] [address] Samantha Guzman MD [facility] [place] [address] Social History Tobacco Use Types Packs/Day Years [...] Vitamins oral tablet, 1 Tab, Oral, Daily [place] 7.5 mg-325 mg oral tablet, 1 Tab, [...] Lymph # 1.52 x10(3)/uL 03/16/2021 11:38 EDT [place] % 5.1 % 03/16/2021 11:38 EDT [place] # 0.50 K/uL 03/16/2021 11:38 EDT Eos [...] Appearance CLEAR2 03/16/2021 14:09 EDT Urine Specific [place] 1.015 03/17/2021 04:10 EDT Urine Specific [place] 1.014 03/16/2021 14:09 EDT Urine pH Dipstick [...] [1] History and Physical; MARIA ELENA DAVALOS [facility] 03/16/2021 17:39 EDT [2] CR Wrist Min 3 Vws RT; Roni Guerra, Ceramics Engineer 03/16/2021 12:13 EDT documented in this encounter Plan of Treatment Not on file documented as of this encounter Visit Diagnoses Not on filedocumented in this encounter Care Teams Construction Or Leak Gang Laborer Relationship Specialty Start Date End Date Jay [place] MD [address] [place] [phone] PCP - General Emergency Medicine 11/12/23 documented as of this encounter
--- OUTSIDE RECORDS SUMMARY | 2025-07-24 06:48 | XMS_ITS | Encounter Summary ---
Author Organization [employer] ([place], [place], [place], [place]) Address [address] [place] [address] Care Team Providers Care Engraver Pantograph Name Role Phone Jay [place] MD Primary Care Provider [phone] Encounter Details Date Type Department Care Team (Late st Contact Info) Description 08/25/2020 Transcribed Document [facility] Family Medicine [address] [place] [address] ProviderJessie MD [address] [place] [address] Social History Tobacco Use Types Packs/Day Years Used Date Smoking Tobacco: Never Assessed Comments Unknown Sex and Gender Information Value Date Recorded Sex Assigned at Not on file Legal Sex Female 7:30 PM CDT Gender Identity Not on file Sexual Orientation Not on file documented as of this encounter Miscellaneous Notes * Cerner Conversion Note - Historical ProviderMD - 08/25/2020 4:33 AM CHAIRMAN OF THE BOARD [place] Violence Assessment Entered On: 08/25/2020 5:10 EST Performed On: 08/25/2020 5:10 EST by Yajaira Magallon Rn Broset Violence Assessment Broset Violence Checklist of Symptoms : None Broset Violence Symptoms Subtotal : 0 Broset Violence Symptoms Indicator : Low risk (0) Yajaira Magallon Rn - 08/25/2020 5:10 EST Electronically signed by Sivan [facility] Conversion Slag Skimmer Cerner at 02/04/2023 2:10 PM CDT documented in this encounter Plan of Treatment Not on file documented as of this encounter Visit Diagnoses Not on filedocumented in this encounter Care Teams Engraver Pantograph Relationship Specialty Start Date End Date Jay [place] MD [address] [place] [phone] PCP - General Emergency Medicine 11/12/23 documented as of this encounter
--- OUTSIDE RECORDS SUMMARY | 2025-07-24 06:48 | XMS_ITS | Encounter Summary ---
Author Organization [employer] ([place], [place], [place], [place]) Address [address] [place] [address] Care Team Providers Care Senior Mobile Solutions Architect Name Role Phone Jay [place] MD Primary Care Provider [phone] Encounter Details Date Type Department Care Team (Late st Contact Info) Description 03/17/2021 Transcribed Document [facility] [place] [address] [place] [id number] ProviderJessie MD [address] [place] [address] [phone] Social History Tobacco Use Types Packs/Day Years [...] On: 03/17/2021 9:00 EDT by TASHI LIND [facility] Phone Call for Consults Consult, Additional Information : notified by physician TASHI LIND, [facility] - 03/18/2021 8:31 EDT documented in this encounter Plan of Treatment Not on file documented as of this encounter Visit Diagnoses Not on filedocumented in this encounter Care Teams Senior Mobile Solutions Architect Relationship Specialty Start Date End Date Jay [place] MD [address] [place] [phone] PCP - General Emergency Medicine 11/12/23 documented as of this encounter
--- OUTSIDE RECORDS SUMMARY | 2025-07-24 06:48 | XMS_ITS | Encounter Summary ---
Author Organization [employer] ([place], [place], [place], [place]) Address [address] [place] [address] Care Team Providers Care Package Line Operator Name Role Phone Jay [place] MD Primary Care Provider [phone] Encounter Details Date Type Department Care Team (Late st Contact Info) Description 03/17/2021 Transcribed Document [facility] [place] Family Medicine [facility] [place] [address] ProviderJessie MD [address] [place] [address] [id number] Social History Tobacco Use Types Packs/Day Years [...] on filedocumented in this encounter Care Teams Package Line Operator Relationship Specialty Start Date End Date Jay [place] MD [address] [place] [phone] PCP - General Emergency Medicine 11/12/23 documented as of this encounter
--- OUTSIDE RECORDS SUMMARY | 2025-07-24 06:48 | XMS_ITS | Encounter Summary ---
Author Organization [employer] ([place], [place], [place], [place]) Address [address] [place] [address] Care Team Providers Care Textile Machine Operator Name Role Phone Jay [place] MD Primary Care Provider [phone] Encounter Details Date Type Department Care Team (Late st Contact Info) Description 03/17/2021 Transcribed Document [facility] [place] [facility] [place] [address] ProviderJessie MD [address] [place] [address] Social History Tobacco Use Types Packs/Day Years [...] 03/17/2021 10:01 EDT by Krystina Giang V Furnace Setter Felipe Initial Assessment I Legal Guardian : No rKystina Giang V Furnace Setter Felipe - 03/17/2021 14:24 EDT Previously Documented Living Environment : No qualifying data available. Living Situation : Home Patient Lives With : Spouse Employment/Vocation : retired Emergency Contact #1 : Leonardo Emergency Contact #1 Emergency Contact #1 Relationship : Son Emergency Contact #2 : Christian Emergency Contact #2 Emergency Contact #2 Relationship : Son Rahat Social Kayla Khoury [facility] [place] 03/17/2021 10:01 EDT Enter Doctors Name : Krystina Welsh Social Worker [facility] 03/17/2021 14:24 EDT Does Patient have PCP Listed? : Yes Medical Durable Power of Watermelon Inspector Name : No Krystina Giang Social Worker [facility] [place] 03/17/2021 10:01 EDT Initial Assessment II Sensory and Motor Deficits : Weakness Krystina Giang Social Worker [facility] 03/17/2021 10:01 EDT Current Home Treatments and Equipment : Bedside commode, CPAP, Shower chair, Walker, Wheelchair Krystina Giang Social Worker [facility] 03/17/2021 14:24 EDT Discharge Needs I Anticipated Discharge Date : 03/19/2021 EDT Anticipated Discharge To, CM : Home with home health Krystina Giang Social Worker [facility] [place] 03/17/2021 14:24 EDT Current Home Treatment/Equipment : Current Home Treatment/Equipment No qualifying data available. Documentation Status Complete : Yes Krystina Giang Social Worker [facility] 03/17/2021 10:01 EDT Discharge Needs II Professional Skilled Services : Professional Skilled Services No qualifying data available. Needs Assistance with Transportation : No Discharge Options Discussed with Patient : Discharge transportation, DME, Home Health, Short term rehabilitation Krystina Giang Social Worker [facility] 03/17/2021 10:01 EDT Narrative Note Narrative Note : HD#1, ELOS-not reported, RRS-Moderate, Boost- 80 yo female admitted for syncopal episide. She fell and hit her head and suffered a right wrist fracture. Cardiology, Neurology, Orthopedics consults noted. She lives with her spouse. Independent with ADLs prior to admission. DME-walker, shower chair, BSC, cpap thru [facility] in [place]. No home 02. HHS in the past out of [place]. Denies rehab stays. DCP-Home with spouse. Possible HHPT/OT CM to follow Krystina Giang Social Worker [facility] [place] 03/17/2021 14:24 EDT Electronically signed by Sivan [facility] Conversion Book Illustrator Cerner at 02/04/2023 2:01 PM CDT documented in this encounter Plan of Treatment Not on file documented as of this encounter Visit Diagnoses Not on filedocumented in this encounter Care Teams Textile Machine Operator Relationship Specialty Start Date End Date Jay [place] MD [address] [place] [phone] PCP - General Emergency Medicine 11/12/23 documented as of this encounter
--- OUTSIDE RECORDS SUMMARY | 2025-07-24 06:48 | XMS_ITS | Encounter Summary ---
Author Organization [employer] ([place], [place], [place], [place]) Address [address] [place] [address] Care Team Providers Care Turner Splitter Machine Operator Name Role Phone Jay [place] MD Primary Care Provider [phone] Encounter Details Date Type Department Care Team (Late st Contact Info) Description 03/17/2021 Transcribed Document [facility] [place] Family [place] [facility] [place] [address] ProviderJessie MD [address] [place], [place] 705781 Social History Tobacco Use Types Packs/Day Years [...] of the form. Electronically signed by Sivan, [facility] Conversion Ground Crew Lines Person Cerner at 02/04/2023 2:16 PM CDT documented in this encounter Plan of Treatment Not on file documented as of this encounter Visit Diagnoses Not on filedocumented in this encounter Care Teams Turner Splitter Machine Operator Relationship Specialty Start Date End Date Jay [place] MD [address] [place] [phone] PCP - General Emergency Medicine 11/12/23 documented as of this encounter
--- OUTSIDE RECORDS SUMMARY | 2025-07-24 06:48 | XMS_ITS | Encounter Summary ---
Author Organization [employer] ([place], [place], [place], [place]) Address [address] [place] [address] Care Team Providers Care Director Packaging Name Role Phone Jay [place] MD Primary Care Provider [phone] Encounter Details Date Type Department Care Team (Late st Contact Info) Description 03/16/2021 Transcribed Document [facility] [facility] [place] [address] ProviderJessie MD [address] [place], [place] [address] Social History Tobacco Use Types Packs/Day Years [...] Ambulatory Legal Guardian : Spouse Support Person/Patient Pot Puncher : Yes Support Person/Pt Rep Name : Willard Contact Password : Marvin Support Person/Pt Rep Contact Information : [phone] Want Family/Rep/Phys Notified of Admit : No [...] Obtained From : Patient Primary Language : Taiwanese Preferred Communication Mode : Verbal Communication Barrier : None Parking Supervisor Needed : No VALERIA DOAN RN - [...] Level : 46 or > High Risk Herald Fall Interventions : Adequate lighting, Assistive devices [...] Source : Stated Height Entry Format : Dunn Height, Feet : 5 ft(Converted to: 152 cm, 60 Inch) Height, Inches : 3 Inch(Converted to: 0 ft 3 Inch, 7.62 cm) Clinical Height : 160.02 cm Weight Source : Standing scale Weight Entry Format : Dunn Clinical Dosing Weight : 71.82 kg Weight, Pounds : 158 lb Body Surface Area (BSA) : 1.75 m2 Body Mass Index : 28 kg/m2 (HI) [place] Body Weight : 52 kg VALERIA DOAN [...] VALERIA DOAN RN - 03/16/2021 18:52 EDT [place] Suicide Severity Rating Scale (C-SSRS) CSSRS Past [...] filedocumented in this encounter Care Teams Director Packaging Relationship Specialty Start Date End Date Jay [place] MD [address] [place] [phone] PCP - General Emergency Medicine 11/12/23 documented as of this encounter
--- OUTSIDE RECORDS SUMMARY | 2025-07-24 06:48 | XMS_ITS | Clinical Summary ---
Author Organization [employer] [facility] Address [address] [place] [address], [address] [place] [address] Care Team Providers Care Printing Assistant Name Role Phone Jay [place] MD Primary Care Provider [phone] Allergies Active Allergy Reactions Criticality Noted Date Comments Nitrofurantoin Hives,Itching,Other (See Comments),Rash Medium 06/14/2013 Macrobid Medications No known medications Encounters Date Type Department Care Team Description 04/25/2025 3:00 PM EDT Office Visit [facility], [place] [address] Luis Upton MD Nontraumatic complete tear of [...] ID:Not on file Type:Not on file Address: [place] [id number] Care Teams Printing Assistant Relationship Specialty Start Date End Date Jay [place] MD [address] [place] [address] BEATRIZ Poe [phone] PCP - General Emergency Medicine 03/06/25
--- OUTSIDE RECORDS SUMMARY | 2025-07-24 06:48 | XMS_ITS | Encounter Summary ---
Author Organization [employer] ([place], [place], [place], [place]) Address [address] [place] [address] Care Team Providers Care Experimental Rocket Sled Mechanic Name Role Phone Jay [place] MD Primary Care Provider [phone] Encounter Details Date Type Department Care Team (Late st Contact Info) Description 03/17/2021 Transcribed Document [facility] [place] [facility] [place] [address] ProviderJessie MD [address] [place], [place] [phone] Social History Tobacco Use Types Packs/Day Years [...] 1:15 EDT Pain Scale Intensity : 3 Sarha Vivar P, Non Emp RN - 03/18/2021 1:15 EDT Image 4 - Images currently included in the form version of this document have not been included in the text rendition version of the form. Electronically signed by Sivan, [facility] Conversion Despatching And Receiving Clerk Cerner at 02/04/2023 2:00 PM CDT documented in this encounter Plan of Treatment Not on file documented as of this encounter Visit Diagnoses Not on filedocumented in this encounter Care Teams Experimental Rocket Sled Mechanic Relationship Specialty Start Date End Date Jay [place] MD [address] [place] [phone] PCP - General Emergency Medicine 11/12/23 documented as of this encounter
--- OUTSIDE RECORDS SUMMARY | 2025-07-24 06:48 | XMS_ITS | Encounter Summary ---
Author Organization [employer] ([place], [place], [place], [place]) Address [address] [place] [address] Care Team Providers Care Ore Bridge Operator Name Role Phone Jay [place] MD Primary Care Provider [phone] Encounter Details Date Type Department Care Team (Late st Contact Info) Description 08/24/2020 Transcribed Document [facility] [place] [address] [place] [address] ProviderJessie MD [address] [place], [place] [address]99301 Social History Tobacco Use Types Packs/Day Years Used Date Smoking Tobacco: Never Assessed Comments Unknown Sex and Gender Information Value Date Recorded Sex Assigned at Not on file Legal Sex Female 7:30 PM CDT Gender Identity Not on file Sexual Orientation Not on file documented as of this encounter Miscellaneous Notes * Cerner Conversion Note - Historical ProviderMD - 08/24/2020 7:06 PM ACCOUNTANCY PROFESSOR CR Ankle Min 3 Vws LT Ordered: [...] on filedocumented in this encounter Care Teams Ore Bridge Operator Relationship Specialty Start Date End Date Jay [place] MD [address] [place] [phone] PCP - General Emergency Medicine 11/12/23 documented as of this encounter
--- OUTSIDE RECORDS SUMMARY | 2025-07-24 06:49 | XMS_ITS | Encounter Summary ---
Author Organization [employer] ([place], [place], [place], [place]) Address [address] [place] [address] Care Team Providers Care Can Coverer Name Role Phone Jay Howell MD Primary Care Provider [phone] Encounter Details Date Type Department Care Team (Late st Contact Info) Description 08/26/2020 Transcribed Document [facility] [place] [address] [place] [address] ProviderJessie MD [address] [place], [place] 878371 Social History Tobacco Use Types Packs/Day Years Used Date Smoking Tobacco: Never Assessed Comments Unknown Sex and Gender Information Value Date Recorded Sex Assigned at Not on file Legal Sex Female 7:30 PM CDT Gender Identity Not on file Sexual Orientation Not on file documented as of this encounter Miscellaneous Notes * Cerner Conversion Note - Historical ProviderMD - 08/26/2020 1:15 PM BUSINESS ECONOMIST [facility] Main OR Preop Summary Primary Physician: KAELA HEBERT MD Finalized Date/Time: 08/26/20 13:59:45 Pt. Name: SKYLER MONTOYA.O.B./Sex: 1940 Female Med Rec #: [id number] Physician: BETH DAVALOS MD-INT Financial #: [id number] Pt. Type: I Room/Bed: [facility]/ Admit/Disch: 08/25/20 05:53:00 - Institution: [facility] PreOp Case Times Entry 1 In Preop 08/26/20 10:52:00 Ready for Holding n/a Room Patient Ready for 08/26/20 11:30:00 Surgery Patient Out of Preop 08/26/20 12:57:00 Patient Out of n/a Holding Room Last Modified By: CARLTON GUTIERREZ 08/26/20 13:59:44 [facility] PreOp Case Times Audit 08/26/20 13:59:44 Adult Literacy Instructor: [email or web address] Modifier: [email or web address] <+> 1 Patient Out of Preop 08/26/20 11:36:02 Adult Literacy Instructor: [email or web address] Modifier: [email or web address] <+> 1 Patient Ready for Surgery Finalized By: CARLTON GUTIERREZ Document Signatures Signed By: CARLTON GUTIERREZ 08/26/20 13:59 Electronically signed by Sivan [facility] Conversion Surveying Or Spatial Science Technician Cerner at 02/04/2023 2:16 PM CDT documented in this encounter Plan of Treatment Not on file documented as of this encounter Visit Diagnoses Not on filedocumented in this encounter Care Teams Can Coverer Relationship Specialty Start Date End Date Jay [place]ell MD [address] [place] [phone] PCP - General Emergency Medicine 11/12/23 documented as of this encounter
--- OUTSIDE RECORDS SUMMARY | 2025-07-24 06:49 | XMS_ITS | Encounter Summary ---
Author Organization [employer] ([place], [place], [place], [place]) Address [address] [place] [address] Care Team Providers Care Vba Programmer Name Role Phone Jay [place] MD Primary Care Provider [phone] Encounter Details Date Type Department Care Team (Late st Contact Info) Description 08/26/2020 Transcribed Document [facility] [place] [address] [place] [address] ProviderJessie MD [address] [place] [address] Social History Tobacco Use Types Packs/Day Years Used Date Smoking Tobacco: Never Assessed Comments Unknown Sex and Gender Information Value Date Recorded Sex Assigned at Not on file Legal Sex Female 7:30 PM CDT Gender Identity Not on file Sexual Orientation Not on file documented as of this encounter Miscellaneous Notes * Cerner Conversion Note - Historical MD Alpa - 08/26/2020 8:24 AM INTERNET MARKETING STRATEGIST Patient: SKYLER MONTOYA Age: 79 years Sex: [...] Level 8.4 mg/dL 08/26/2020 04:23 MICRO: ACC: [id number] ORDER: Culture Wound and Stain DATE: 08/25/2020 05:00 SOURCE: Wound SITE: Leg Lower L Reports Pre 08/26/2020 06:23 No growth GS 08/25/2020 07:26 No organisms seen. Few White Blood Cells Rare epithelial cells == ACC: [id number] ORDER: Culture Blood DATE: 08/25/2020 05:01 SOURCE: Blood SITE: Reports Pre 08/26/2020 06:01 No growth at 1 day. Pre 08/25/2020 23:02 Culture less than 24 Hrs old == ACC: [id number] ORDER: Culture Blood DATE: 08/25/2020 05:01 SOURCE: Blood SITE: Reports Pre 08/26/2020 06:01 No growth at 1 day. Pre 08/25/2020 23:02 Culture less than 24 Hrs old == Radiology Results (Last 48 hours) [id number] -- 08/25/2020 05:53 CR Chest 1 Vw [...] above. Discussed with them. Electronically signed by [facility], [facility] Conversion Molecular Technologist Cerner at 02/04/2023 2:09 PM CDT documented in this encounter Plan of Treatment Not on file documented as of this encounter Visit Diagnoses Not on filedocumented in this encounter Care Teams Vba Programmer Relationship Specialty Start Date End Date Jay Howell MD [address] [place] [phone] PCP - General Emergency Medicine 11/12/23 documented as of this encounter
--- OUTSIDE RECORDS SUMMARY | 2025-07-24 06:49 | XMS_ITS | Encounter Summary ---
Author Organization [employer] ([place], [place], [place], [place]) Address [address] [place] [address] Care Team Providers Care Hospice Patient Care Secretary Name Role Phone Jay Howell MD Primary Care Provider [phone] Encounter Details Date Type Department Care Team (Late st Contact Info) Description 03/19/2021 Transcribed Document [facility] [place] Family [place] [facility] [place] [address] ProviderJessie MD [address] [place], [place] [phone] Social History Tobacco Use Types Packs/Day Years [...] of the form. Electronically signed by Sivan, [facility] Conversion Retail Grocer Cerner at 02/04/2023 2:02 PM CDT documented in this encounter Plan of Treatment Not on file documented as of this encounter Visit Diagnoses Not on filedocumented in this encounter Care Teams Hospice Patient Care Secretary Relationship Specialty Start Date End Date Jay Howell MD [address] [place] [phone] PCP - General Emergency Medicine 11/12/23 documented as of this encounter
--- OUTSIDE RECORDS SUMMARY | 2025-07-24 06:49 | XMS_ITS | Encounter Summary ---
Author Organization [employer] ([place], [place], [place], [place]) Address [address] [place] [address] Care Team Providers Care Pastrycook'S Assistant Name Role Phone Jay Howell MD Primary Care Provider [phone] Encounter Details Date Type Department Care Team (Late st Contact Info) Description 08/26/2020 Transcribed Document [facility] Family Medicine [address] [place] [address] ProviderJessie MD [address] [place] [address] Social History Tobacco Use Types Packs/Day Years Used Date Smoking Tobacco: Never Assessed Comments Unknown Sex and Gender Information Value Date Recorded Sex Assigned at Not on file Legal Sex Female 7:30 PM CDT Gender Identity Not on file Sexual Orientation Not on file documented as of this encounter Miscellaneous Notes * Cerner Conversion Note - Historical ProviderMD - 08/26/2020 2:16 PM NETWORK ENGINEERING ADVISOR Initial Discharge Planning Entered On: 08/26/2020 14:19 EST Performed On: 08/26/2020 14:16 EST by KAVITA PELLETIER RN-Day Porter Initial Assessment I Previously Documented Living Environment [...] Listed? : Yes Medical Durable Power of Machine Group Leader Name : No KAVITA PELLETIER RN-Day Porter - 08/26/2020 14:16 EST Initial Assessment II Sensory and Motor Deficits : Weakness Current Home Treatments and Equipment : CPAP, Walker KAVITA PELLETIER RN-Day Porter - 08/26/2020 14:16 EST Narrative Note Narrative [...] upon POC. CM will follow. KAVITA PELLETIER RN-Day Porter - 08/26/2020 14:16 EST documented in this encounter Plan of Treatment Not on file documented as of this encounter Visit Diagnoses Not on filedocumented in this encounter Care Teams Pastrycook'S Assistant Relationship Specialty Start Date End Date Jay Howell MD [address] [place] [phone] PCP - General Emergency Medicine 11/12/23 documented as of this encounter
--- OUTSIDE RECORDS SUMMARY | 2025-07-24 06:49 | XMS_ITS | Referral Summary ---
Author Organization [employer] ([place], [place], [place], [place]) Address [address] [place] [address] Care Team Providers Care Safety Consultant Name Role Phone Jay Howell MD Primary Care Provider [phone] Allergies Active Allergy Reactions Criticality Noted Date [...] Date Kennedy rded Speak language other than Mohawk at home Not on file 10/30/2023 Want [...] on file Insurance MEDICARE PART A B [facility] [place] [id number] Advance Directives For more information, please contact: [phone] * Full Code (Latest Code Status on File) Date Activated Date Inactivated Comments 11/25/2022 10:41 AM 11/26/2022 5:33 PM * Full Code Date Activated Date Inactivated Comments 11/25/2022 8:11 AM 11/25/2022 10:41 AM -Attempt Resu scitation if person has no pulse and is not breathing. -If no pulse or not breathing attempt CPR/CODE. -Call Rapid Response if patient is in distress. Care Teams Safety Consultant Relationship Specialty Start Date End Date Jay Howell MD [address] [place] [phone] PCP - General Emergency Medicine 11/12/23
--- OUTSIDE RECORDS SUMMARY | 2025-07-24 06:49 | XMS_ITS | Encounter Summary ---
Author Organization [employer] ([place], [place], [place]) Address [address] [place] [address] Care Team Providers Care Rn Perinatal Name Role Phone Jay Howell MD Primary Care Provider [phone] Encounter Details Date Type Department Care Team (Late st Contact Info) Description 08/26/2020 Transcribed Document [facility] [place] Family Medicine [address] [place] [address] ProviderJessie MD [address] [place] [address] Social History Tobacco Use Types Packs/Day Years Used Date Smoking Tobacco: Never Assessed Comments Unknown Sex and Gender Information Value Date Recorded Sex Assigned at Not on file Legal Sex Female 7:30 PM CDT Gender Identity Not on file Sexual Orientation Not on file documented as of this encounter Miscellaneous Notes * Cerner Conversion Note - Historical ProviderMD - 08/26/2020 2:49 PM WEBBING INSPECTOR Patient: SKYLER MONTOYA Age: 79 years [...] on filedocumented in this encounter Care Teams Rn Perinatal Relationship Specialty Start Date End Date Jay Howell MD [address] [place] [phone] PCP - General Emergency Medicine 11/12/23 documented as of this encounter
--- OUTSIDE RECORDS SUMMARY | 2025-07-24 06:49 | XMS_ITS | Encounter Summary ---
Author Organization [employer] ([place], [place], [place], [place]) Address [address] [place] [address] Care Team Providers Care Resort Manager Name Role Phone Jay Howell MD Primary Care Provider [phone] Encounter Details Date Type Department Care Team (Late st Contact Info) Description 08/26/2020 Transcribed Document [facility] [place] Family Medicine [address] [place] [address] ProviderJessie MD [address] [place], [place] [address] Social History Tobacco Use Types Packs/Day Years Used Date Smoking Tobacco: Never Assessed Comments Unknown Sex and Gender Information Value Date Recorded Sex Assigned at Not on file Legal Sex Female 7:30 PM CDT Gender Identity Not on file Sexual Orientation Not on file documented as of this encounter Miscellaneous Notes * Cerner Conversion Note - Historical ProviderMD - 08/26/2020 1:15 PM DESKTOP MANAGER [facility] Main OR IntraOp Summary Primary Physician: KAELA HEBERT MD Finalized Date/Time: 08/28/20 09:26:05 Pt. Name: SKYLER MONTOYAO.B./Sex: 1940 Female Med Rec #: [id number] Physician: BETH DAVALOS MD-INT Financial #: [id number] Pt. Type: I Room/Bed: [facility]/ Admit/Disch: 08/25/20 05:53:00 - Institution: [facility] IntraOp Case Attendance Entry 1 Entry 2 Entry 3 Case Attendee KAELA HEBERT MD GRAFF, WAYNE B, MD-GABY INIGUEZ CRNA Role Performed Surgeon/Proceduralist, Anesthesiologist of STOCK HANDLER FLOORPERSON/Nurse Care Consultant First Record Time In 08/26/20 13:00:00 08/26/20 [...] Medrano, Saray Linton ST Role Performed Student Records Management Analyst, First Scrub, First Time In 08/26/20 13:00:00 [...] OTHER, ATTENDEE #3 Role Performed Scrub, First Manager Digital Manager Digital Time In 08/26/20 13:00:00 08/26/20 13:00:00 08/26/20 [...] 14:32:23 Entry 10 Case Attendee Jos Ledezma, Community Nutrition Educator Role Performed Scrub, First Time In 08/26/20 13:50:00 Time Out 08/26/20 14:23:00 Procedure Wound Debridement Lower Extremity(Left), Aortogram Abdominal with Runoff(Left), Angioplasty Percutaneous Transluminal(Left) Other Attendee Superficial Wound Closed By: Last Modified By: Radha Medrano RN 08/26/20 14:32:23 [facility] IntraOp Case Attendance Audit 08/26/20 14:32:23 Supervisory It Specialist: AMAN Modifier: AMAN 1 <+> Time Out [...] with Runoff(Left), Angioplasty Percutaneous Transluminal(Left) 08/26/20 13:55:12 Supervisory It Specialist: EANAPIER Modifier: EANAPIER 6 <+> Time Out 6 <*> Procedure Wound Debridement Lower Extremity(Left), Aortogram Abdominal with Runoff(Left), Angioplasty Percutaneous Transluminal(Left) 7 <+> Time Out 7 <*> Procedure Wound Debridement Lower Extremity(Left), Aortogram Abdominal with Runoff(Left), Angioplasty Percutaneous Transluminal(Left) <+> 10 Case Attendee <+> 10 Role Performed <+> 10 Time In <+> 10 Procedure 08/26/20 13:49:11 Supervisory It Specialist: EANAPIER Modifier: EANAPIER 1 <*> Procedure Wound [...] Extremity(Left), Aortogram Abdominal with Runoff(Left) 08/26/20 13:47:56 Supervisory It Specialist: EANAPIER Modifier: EANAPIER 1 <*> Procedure Wound [...] Procedure Wound Debridement Lower Extremity(Left) 08/26/20 13:38:05 Supervisory It Specialist: EANAPIER Modifier: EANAPIER <+> 1 Time In [...] 9 <*> Procedure Wound Debridement Lower Extremity(Left) [facility] IntraOp Case Times Entry 1 Patient In Room Time 08/26/20 13:00:00 Out Room Time 08/26/20 14:23:00 Anesthesia Start Time 08/26/20 13:00:00 Stop Time 08/26/20 14:23:00 Surgery / Procedure Times Start Time 08/26/20 13:15:00 Stop Time 08/26/20 14:10:00 Last Modified By: Radha Medrano RN 08/26/20 14:22:56 [facility] IntraOp Case Times Audit 08/26/20 14:22:56 Supervisory It Specialist: EANAPIER Modifier: EANAPIER <+> 1 Out Room Time <+> 1 Stop Time 08/26/20 14:14:55 Supervisory It Specialist: EANAPIER Modifier: EANAPIER <+> 1 Stop Time [facility] IntraOp Cautery Entry 1 ESU Identification Cautery Type Monopolar ESU ID Number [id number] ID Type Hospital Number Cautery Settings Cut Setting 30 Coag Setting 30 ESU Grounding Pad Ground Pad Type Adult Grounding Pad Site Right Upper Abdomen Grounding Pad Radha Medrano RN Applied By Grounding Pad Site Warm, dry and intact Skin Condition Before Cautery Grounding Pad Site Unchanged Skin Condition After Cautery Last Modified By: Radha Medrano RN 08/26/20 13:46:51 [facility] IntraOp Communication Entry 1 Communication To Other Comment [facility] REPORT Communication By Radha Medrano RN Date and Time 08/26/20 14:17:00 Last Modified By: Radha Medrano RN 08/26/20 14:16:35 [facility] IntraOp Counts Verification Entry 1 Procedure Wound Debridement Lower Extremity(Left), Aortogram Abdominal with Runoff(Left), Angioplasty Percutaneous Transluminal(Left) Count Info Count Type Sponge, Sharps, Miscellaneous Counts Verification Baseline/pre-procedure Sequence Count Results Not Applicable Counts Performed By Count Performed By LUNA RIGGINS (Scrub) Count Performed By Radha Medrano RN (RN) Last Modified By: Radha Medrano RN 08/26/20 13:49:13 [facility] IntraOp Counts Verification Audit 08/26/20 13:49:13 Supervisory It Specialist: EANAPIER Modifier: EANAPIER 1 <*> Procedure Wound Debridement Lower Extremity(Left), Aortogram Abdominal with Runoff(Left) 08/26/20 13:47:59 Supervisory It Specialist: EANAPIER Modifier: EANAPIER 1 <*> Procedure Wound Debridement Lower Extremity(Left) [facility] IntraOp Counts Final Entry 1 Procedure Wound Debridement Lower Extremity(Left), Aortogram Abdominal with Runoff(Left), Angioplasty Percutaneous Transluminal(Left) Final Count Info Count Type Sponge, Sharps, Miscellaneous Counts Verification Skin Closure/end of Sequence procedure Count Results Correct, surgeon notified Counts Performed By Count Performed By Jos Ledezma Surgical (Scrub) Fishing Captain Count Performed By Radha Medrano RN (RN) Last Modified By: Radha Medrano RN 08/26/20 14:24:36 [facility] IntraOp Counts Final Audit 08/26/20 14:24:36 Supervisory It Specialist: LOVELYPIOMAYRA Modifier: EANAPIER 1 <*> Procedure Wound Debridement Lower Extremity(Left), Aortogram Abdominal with Runoff(Left), Angioplasty Percutaneous Transluminal(Left) 1 <+> Count Results 1 <+> Count Performed By (Scrub) 1 <+> Count Performed By (RN) 08/26/20 13:49:14 Supervisory It Specialist: LOVELYPIOMAYRA Modifier: EANAPIER 1 <*> Procedure Wound Debridement Lower Extremity(Left), Aortogram Abdominal with Runoff(Left) 08/26/20 13:48:01 Supervisory It Specialist: LOVELYPIOMAYRA Modifier: EANAPIER 1 <*> Procedure Wound Debridement Lower Extremity(Left) [facility] IntraOp Cultures and Spec Summary Entry 1 Cultrures and Specimens Specimen Ordered: Yes Test(s) Culture(s)/Microbiology Requested/Final Disposition Last Modified By: Radha Medrano RN 08/26/20 13:56:41 General Comments: LEFT ANTERIOR LEG WOUND. [facility] IntraOp Departure from OR Entry 1 Integumentary Assessment Integumentary WDL Assessment WDL Transfer/Handoff Transfer to PACU Phase II Handoff Method Phone call Post-op Transport Stretcher/Gurney Via Patient Transport Radah Medrano RN Accompanied by Transfer/Handoff PT TRANSPORTED TO [facility], PT STABLE Last Modified By: Radha Medrano RN 08/26/20 14:24:24 General Comments: [id number] LALA RNSOLDER MAKING LABORER [facility] IntraOp Dressing and Packing Entry 1 Type Dressing Wound Dressing Item Skin Closure Glue Applied By KAELA HEBERT MD Last Modified By: Radha Medrano RN 08/26/20 13:45:13 [facility] IntraOp Fire Risk Assessment Entry 1 [...] Modified By: Radha Medrano RN 08/26/20 13:40:08 [facility] IntraOp General Case Wire Mesh Knitter 1 Case Information OR OR 20 [facility] Case Level 1 Room Verified Yes Wound Class II - Clean-Contaminated Specialty SN Endovascular Anesthesia Type MAC ASA Class 4 Diagnosis Preop Diagnosis LEFT LEG WOUND Postop Same As Preop No Postop Diagnosis SEE MD NOTE Last Modified By: Radha Medrano RN 08/26/20 13:44:53 [facility] IntraOp Implant Log Entry 1 Type Implant (Synthetic) Implant Log Implant DEVICE CLSR ANGIO-SEAL Identification [facility] [id number] Description Implant Quantity 1 Implant Site RIGHT Implant [id number] Identification Lot Number Implant St [facility] Med:Cardiac Surg Identification Transfer Station Attendant Name: Implant [id number] Identification Catalog Number Implant Has an Yes Expiration Date Implant Expiration 06/16/21 Date Tissue Implant Last Modified By: Radha Medrano RN 08/26/20 14:23:44 [facility] IntraOp Intraoperative Assessment Entry 1 Handoff [...] Modified By: Radha Medrano RN 08/26/20 13:44:22 [facility] IntraOp Intraoperative Equipment Entry 1 Type Monitoring Equipment Intraop Monitoring Electrocardiogram Three lead placement (ECG) Electrode Placement Blood Pressure Non-Invasive BP Device Source Blood Pressure Arm, right upper Location Pulse Oximeter Hand, left Probe Site Antiembolic Devices Scopes Photo/Video Documentation Last Modified By: Radha Medrano RN 08/26/20 13:43:20 [facility] IntraOp Medication Admin Entry 1 Entry 2 Entry 3 Medication/Irrigant PRM-LB VISIPAQUE 320MG lidocaine 1% 10mg/1ml COMBO heparin in NS 150ML-[id number] 50ml vial - [id number] flush 2000units/1000ml --[id number] Combo Med List Time Administered Route of Administration Dose Dose 320 2000 Unit of Measure mg units Volume Administered By KAELA HEBERT MD MENES, KEITH, MD MENES, KEITH, MD Procedure Irrigation Irrigant Volume In Irrigant Volume Out Last Modified By: Radha Medrano RN Napier, Elizabeth A, RN Napier, Elizabeth A, RN 08/26/20 13:42:30 08/26/20 13:42:30 08/26/20 13:42:30 [facility] IntraOp Patient Positioning Entry 1 Procedure [...] Modified By: Radha Medrano RN 08/26/20 13:49:13 [facility] IntraOp Patient Positioning Audit 08/26/20 13:49:13 Supervisory It Specialist: EANAPIER Modifier: EANAPIER 1 <*> Procedure Wound Debridement Lower Extremity(Left), Aortogram Abdominal with Runoff(Left) 08/26/20 13:48:00 Supervisory It Specialist: EANAPIER Modifier: EANAPIER 1 <*> Procedure Wound Debridement Lower Extremity(Left) [facility] IntraOp Sign In Entry 1 Patient, [...] Modified By: Radha Medrano RN 08/26/20 13:31:46 [facility] IntraOp Sign Out Entry 1 RN [...] Modified By: Radha Medrano RN 08/26/20 14:32:44 [facility] IntraOp Sign Out Audit 08/26/20 14:32:44 Supervisory It Specialist: AMAN Modifier: AMAN 1 <*> Specimen Labeled Correctly N/A 1 <+> RN Sign Out Signature 1 <+> RN Sign Out Signature Date/Time [facility] IntraOp Skin Prep Entry 1 Procedure Wound Debridement Lower Extremity(Left), Aortogram Abdominal with Runoff(Left), Angioplasty Percutaneous Transluminal(Left) Prescribed N/A Pre-Surgical Prep Completed Prep Area BILATERAL GROINS, LEFT LOWER LEG Intraop Prep Prep Agents Chloraprep Prep by Radha Medrano RN Hair Removal Methods No hair removal performed Last Modified By: Radha Medrano RN 08/26/20 13:49:14 [facility] IntraOp Skin Prep Audit 08/26/20 13:49:14 Supervisory It Specialist: AMAN Modifier: REGINANAPIER 1 <*> Procedure Wound Debridement Lower Extremity(Left), Aortogram Abdominal with Runoff(Left) 08/26/20 13:48:00 Supervisory It Specialist: AMAN Modifier: LOVELYPIER 1 <*> Procedure Wound Debridement Lower Extremity(Left) [facility] IntraOp Surgical Procedures Entry 1 Entry [...] RN 08/26/20 14:22:50 08/26/20 14:22:50 08/26/20 14:22:50 [facility] IntraOp Surgical Procedures Audit 08/26/20 14:22:50 Supervisory It Specialist: AMAN Modifier: REGINANAPIER 1 <*> Procedure Wound Debridement Lower Extremity 1 <+> Stop <+> 2 Stop <+> 3 Stop 08/26/20 13:56:00 Supervisory It Specialist: LOVELYPIOMAYRA Modifier: EANAPIER 1 <*> Procedure Wound Debridement Lower Extremity 1 <*> Additional Procedure Description (LT LOWER EXTREMTIY WOUND DEBRIDEMENT WITH WOUND VAC) 08/26/20 13:48:53 Supervisory It Specialist: EANAPIER Modifier: EANAPIER <+> 3 Procedure <+> 3 Primary Procedure <+> 3 Modifiers <+> 3 Primary Surgeon <+> 3 Specialty <+> 3 Start <+> 3 Wound Class <+> 3 Anesthesia Type 08/26/20 13:47:52 Supervisory It Specialist: EANAPIER Modifier: EANAPIER <+> 2 Procedure <+> 2 Primary Procedure <+> 2 Modifiers <+> 2 Primary Surgeon <+> 2 Specialty <+> 2 Start <+> 2 Wound Class <+> 2 Anesthesia Type 08/26/20 13:43:42 Supervisory It Specialist: EANAPIER Modifier: EANAPIER 1 <*> Procedure Wound Debridement Lower Extremity 1 <+> Specialty 1 <*> Anesthesia Type General [facility] IntraOP Time Out Entry 1 Procedure [...] Modified By: Radha Medrano RN 08/26/20 13:49:14 [facility] IntraOP Time Out Audit 08/26/20 13:49:14 Supervisory It Specialist: AMAN Modifier: EANAPIER 1 <*> Procedure to be Performed Wound Debridement Lower Extremity(Left), Aortogram Abdominal with Runoff(Left) 08/26/20 13:48:01 Supervisory It Specialist: REGINANAPIER Modifier: EANAPIER 1 <*> Procedure to be Performed Wound Debridement Lower Extremity(Left) [facility] IntraOp X-Ray and Images Entry 1 [...] WATTSDR Correct Billing Electronically signed by Sivan [facility] Conversion Return Agent Airport Cerner at 02/04/2023 2:03 PM CDT documented in this encounter Plan of Treatment Not on file documented as of this encounter Visit Diagnoses Not on filedocumented in this encounter Care Teams Resort Manager Relationship Specialty Start Date End Date Jay Howell MD [address] [place] [phone] PCP - General Emergency Medicine 11/12/23 documented as of this encounter
--- OUTSIDE RECORDS SUMMARY | 2025-07-24 06:49 | XMS_ITS | Encounter Summary ---
Author Organization [employer] ([place], [place], [place], [place]) Address [address] [place] [address] Care Team Providers Care Radio Television Announcer Name Role Phone Jay Howell MD Primary Care Provider [phone] Encounter Details Date Type Department Care Team (Late st Contact Info) Description 08/26/2020 Transcribed Document [facility] [place] [address] [place] [address] ProviderJessie MD [address] [place] [address] Social History Tobacco Use Types Packs/Day Years Used Date Smoking Tobacco: Never Assessed Comments Unknown Sex and Gender Information Value Date Recorded Sex Assigned at Not on file Legal Sex Female 7:30 PM CDT Gender Identity Not on file Sexual Orientation Not on file documented as of this encounter Miscellaneous Notes * Cerner Conversion Note - Historical ProviderMD - 08/26/2020 2:23 PM AIR TRAFFIC CONTROL SUPERVISOR Patient: SKYLER MONTOYA Age: 79 Years [...] LEFT PT occlusion - distal *Operation RIGHT PAPER PRODUCTS PRINTER access - ultrasound guided Aortogram with LEFT lower extremity run-off LEFT PT angioplasty (2.5-8t631gi Nanocross) LEFT peroneal angioplasty (2.5-3p156kh Nanocross) RIGHT PAPER PRODUCTS PRINTER closure (Angioseal) LEFT leg debridement *Surgeon Elie Verde MD Anesthesia MAC *Estimated Blood Loss Minimal *Findings By aortogram, the distal abdominal aorta is patent. On the RIGHT, the common iliac (NILAY), internal iliac (IIA) and external iliac (EIA) arteries are patent. Beyond this point, the vasculature was not specifically interrogated. On the LEFT, the NILAY, IIA and EIA are patent. The common femoral (PAPER PRODUCTS PRINTER) artery is patent dividing into the profunda [...] The patient was placed supine on the picket labor union table and the BILATERAL groins and LEFT leg were prepped and draped in usual sterile fashion. The patient was identified as SKYLER MONTOYA by the entire procedural team as per time out protocol. Next, local anesthetic was infiltrated into the groin region. The RIGHT PAPER PRODUCTS PRINTER was accessed in retrograde fashion under ultrasound guidance using micropuncture technique and a 5Fr sheath was installed. Next, an Omni flush catheter was advanced into the infrarenal aorta and an aortogram was obtained; see above. Next, the catheter and 035/260 glide advantage wire (GAW) were directed up-and-over into the LEFT PAPER PRODUCTS PRINTER and additional run-off views were obtained in station; see above. Next, the sheath was upsized to a 6Fr/45cm destination sheath which was positioned in the LEFT PAPER PRODUCTS PRINTER. The patient was then systemically heparinized. Next, [...] 13:15:00 (08/26/20 13:48:53) Electronically signed by Sivan [facility] Conversion Body Painter Cerner at 02/04/2023 2:09 PM CDT documented in this encounter Plan of Treatment Not on file documented as of this encounter Visit Diagnoses Not on filedocumented in this encounter Care Teams Radio Television Announcer Relationship Specialty Start Date End Date Jay Howell MD [address] [place] [phone] PCP - General Emergency Medicine 11/12/23 documented as of this encounter
--- OUTSIDE RECORDS SUMMARY | 2025-07-24 06:49 | XMS_ITS | Encounter Summary ---
Author Organization [employer] ([place], [place], [place], [place]) Address [address] [place] [address] Care Team Providers Care Prawn Trawler Hand Name Role Phone Jay Howell MD Primary Care Provider [phone] Encounter Details Date Type Department Care Team (Late st Contact Info) Description 08/26/2020 Transcribed Document [facility] [place] Family Medicine [address] [place] [address] ProviderJessie MD [address] [place] [address] Social History Tobacco Use Types Packs/Day Years Used Date Smoking Tobacco: Never Assessed Comments Unknown Sex and Gender Information Value Date Recorded Sex Assigned at Not on file Legal Sex Female 7:30 PM CDT Gender Identity Not on file Sexual Orientation Not on file documented as of this encounter Miscellaneous Notes * Cerner Conversion Note - Historical ProviderMD - 08/26/2020 6:06 PM ACQUISITIONS LIBRARIAN Spiritual Care Short Form Entered On: 08/26/2020 18:06 EST Performed On: 08/26/2020 18:06 EST by JEREMIAH HULL General Information, Spiritual Care Spiritual Care Referred by : Nurse Reason for Visit : Referral/Consult Baptism Preference : Sabianist JEREMIAH HULL - 08/26/2020 18:06 EST documented in this encounter Plan of Treatment Not on file documented as of this encounter Visit Diagnoses Not on filedocumented in this encounter Care Teams Prawn Trawler Hand Relationship Specialty Start Date End Date Jay Howell MD [address] [place] [phone] PCP - General Emergency Medicine 11/12/23 documented as of this encounter
--- OUTSIDE RECORDS SUMMARY | 2025-07-24 06:49 | XMS_ITS | Encounter Summary ---
Author Organization [facility] ([place], [place], [place], [place]) Address [address] [place] [address] Care Team Providers Care Administration Clerk Name Role Phone Jay Howell MD Primary Care Provider [phone] Encounter Details Date Type Department Care Team (Late st Contact Info) Description 08/25/2020 Transcribed Document [facility] [place] Medicine [address] [place] [address] ProviderJessie MD [address] [place] [address] Social History Tobacco Use Types Packs/Day Years Used Date Smoking Tobacco: Never Assessed Comments Unknown Sex and Gender Information Value Date Recorded Sex Assigned at Not on file Legal Sex Female 7:30 PM CDT Gender Identity Not on file Sexual Orientation Not on file documented as of this encounter Miscellaneous Notes * Cerner Conversion Note - Jessie Yuen MD - 08/25/2020 9:27 AM OUTSIDE PLANT ENGINEER Patient: SKYLER MONTOYA Age: 79 years [...] changes. Rx will follow, [place] PharmD,BCPS,BCCCP #[phone] Electronically signed by Sivan, [facility] Conversion Soil Sampler Cerner at 02/04/2023 2:13 PM CDT documented in this encounter Plan of Treatment Not on file documented as of this encounter Visit Diagnoses Not on filedocumented in this encounter Care Teams Administration Clerk Relationship Specialty Start Date End Date Jay Howell MD [address] [place] [phone] PCP - General Emergency Medicine 11/12/23 documented as of this encounter
--- OUTSIDE RECORDS SUMMARY | 2025-07-24 06:49 | XMS_ITS | Encounter Summary ---
Author Organization [employer] ([place], [place], [place], [place]) Address [address] [place] [address] Care Team Providers Care Quilt Stuffer Name Role Phone Jay Howell MD Primary Care Provider [phone] Encounter Details Date Type Department Care Team (Late st Contact Info) Description 08/25/2020 Transcribed Document [facility] [place] [address] [place] [address] ProviderJessie MD [address] [place] [address] Social History Tobacco Use Types Packs/Day Years Used Date Smoking Tobacco: Never Assessed Comments Unknown Sex and Gender Information Value Date Recorded Sex Assigned at Not on file Legal Sex Female 7:30 PM CDT Gender Identity Not on file Sexual Orientation Not on file documented as of this encounter Miscellaneous Notes * Cerner Conversion Note - Jessie Yuen MD - 08/25/2020 7:28 AM CHIEF TECHNICAL OFFICER W[facility]N Inpatient Documentation Entered On: 08/25/2020 15:46 [...] 08/25/2020 15:46 EST Electronically signed by Sivan, [facility] Conversion Machining Supervisor Cerner at 02/04/2023 2:08 PM CDT documented in this encounter Plan of Treatment Not on file documented as of this encounter Visit Diagnoses Not on filedocumented in this encounter Care Teams Quilt Stuffer Relationship Specialty Start Date End Date Jay Howell MD [address] [place] [phone] PCP - General Emergency Medicine 11/12/23 documented as of this encounter
--- OUTSIDE RECORDS SUMMARY | 2025-07-24 06:49 | XMS_ITS | Encounter Summary ---
Author Organization [employer] ([place], [place], [place], [place]) Address [address] [place] [address] Care Team Providers Care Pooling Operator Name Role Phone Jya Howell MD Primary Care Provider [phone] Encounter Details Date Type Department Care Team (Late st Contact Info) Description 03/18/2021 Transcribed Document [facility] [place] [address] ProviderJessie MD [address] [place] [phone] Social History Tobacco Use Types Packs/Day Years [...] of the form. Electronically signed by Sivan, [facility] Conversion Drivers License Examiner Cerner at 02/04/2023 2:20 PM CDT documented in this encounter Plan of Treatment Not on file documented as of this encounter Visit Diagnoses Not on filedocumented in this encounter Care Teams Pooling Operator Relationship Specialty Start Date End Date Jay Howell MD [address] [place] [phone] PCP - General Emergency Medicine 11/12/23 documented as of this encounter
--- OUTSIDE RECORDS SUMMARY | 2025-07-24 06:49 | XMS_ITS | Encounter Summary ---
Author Organization [employer] ([place], [place], [place], [place]) Address [address] [place] [address] Care Team Providers Care Strategic Planning Manager Name Role Phone Jay Howell MD Primary Care Provider [phone] Encounter Details Date Type Department Care Team (Late st Contact Info) Description 03/18/2021 Transcribed Document [facility] [place] [facility] [place] [address] ProviderJessie MD [address] [place] [address] Social History Tobacco Use Types Packs/Day Years Used Date Smoking Tobacco: Never Assessed Comments Unknown Sex and Gender Information Value Date Recorded Sex Assigned at Not on file Legal Sex Female 7:30 PM CDT Gender Identity Not on file Sexual Orientation Not on file documented as of this encounter Miscellaneous Notes * Cerner Conversion Note - Historical ProviderMD - 03/18/2021 8:56 AM CDT UM Authorization Entered On: 03/18/2021 8:56 EDT Performed On: 03/18/2021 8:56 EDT by MARILYNN RAMÍREZ, RN-Utilization Review Primary Insurance Authorization Authorization and Policy Numbers : Insurance 1 Health Plan: MEDICARE Policy Number: [id number] Authorization Number: Insurance 2 Health Plan: AARP N Policy Number: [id number] Authorization Number: Insurance Primary Name : MEDICARE Policy Number: [id number] Authorized Service Begin Date-Primary : 03/16/2021 EDT Historical Authorization Comments-Primary : No Authorization Comments Found MARILYNN RAMÍREZ, RN-Utilization Review - 03/18/2021 8:56 EDT Electronically signed by Sivan [facility] Conversion Concrete Boom Pump Operator Cerner at 02/04/2023 2:20 PM CDT documented in this encounter Plan of Treatment Not on file documented as of this encounter Visit Diagnoses Not on filedocumented in this encounter Care Teams Strategic Planning Manager Relationship Specialty Start Date End Date Jay Howell MD [address] [place] [phone] PCP - General Emergency Medicine 11/12/23 documented as of this encounter
--- OUTSIDE RECORDS SUMMARY | 2025-07-24 06:49 | XMS_ITS | Encounter Summary ---
Author Organization [employer] ([place], [place], [place]) Address [address] [place] [address] Care Team Providers Care Wave Guide Assembler Name Role Phone Jay Howell MD Primary Care Provider [phone] Encounter Details Date Type Department Care Team (Late st Contact Info) Description 08/26/2020 Transcribed Document [facility] [place] Medicine [address] [place] [address] ProviderJessie MD [address] [place] [address] Social History Tobacco Use Types Packs/Day Years Used Date Smoking Tobacco: Never Assessed Comments Unknown Sex and Gender Information Value Date Recorded Sex Assigned at Not on file Legal Sex Female 7:30 PM CDT Gender Identity Not on file Sexual Orientation Not on file documented as of this encounter Miscellaneous Notes * Cerner Conversion Note - Historical ProviderMD - 08/26/2020 12:15 PM FORKLIFT WHEEL LOADER Peripheral Nerve Block Entered On: 08/26/2020 12:27 [...] EST Electronically signed by [facility], [facility] Conversion Adjuster Arbitrator Cerner at 02/04/2023 2:08 PM CDT documented in this encounter Plan of Treatment Not on file documented as of this encounter Visit Diagnoses Not on filedocumented in this encounter Care Teams Wave Guide Assembler Relationship Specialty Start Date End Date Jay Howell MD [address] [place] [phone] PCP - General Emergency Medicine 11/12/23 documented as of this encounter
--- OUTSIDE RECORDS SUMMARY | 2025-07-24 06:49 | XMS_ITS | Encounter Summary ---
Author Organization [employer] ([place], [place], [place], [place]) Address [address] [place] [address] Care Team Providers Care Engine Wiper Name Role Phone Jay Howell MD Primary Care Provider [phone] Encounter Details Date Type Department Care Team (Late st Contact Info) Description 03/18/2021 Transcribed Document [facility] [place] Medicine [facility] [address] ProviderJessie MD [address] [place], [place] [address] Social History Tobacco Use Types Packs/Day Years Used Date Smoking Tobacco: Never Assessed Comments Unknown Sex and Gender Information Value Date Recorded Sex Assigned at Not on file Legal Sex Female 7:30 PM CDT Gender Identity Not on file Sexual Orientation Not on file documented as of this encounter Miscellaneous Notes * Cerner Conversion Note - Jessie ProviderMD - 03/18/2021 2:00 AM CDT Transaction Manager Details Entered On: 03/18/2021 7:00 EDT Performed [...] 03/18/2021 7:00 EDT Electronically signed by Sivan [facility] Conversion Video Network Engineer Cerner at 02/04/2023 2:06 PM CDT documented in this encounter Plan of Treatment Not on file documented as of this encounter Visit Diagnoses Not on filedocumented in this encounter Care Teams Engine Wiper Relationship Specialty Start Date End Date Jay Howell MD [address] [place] [phone] PCP - General Emergency Medicine 11/12/23 documented as of this encounter
--- OUTSIDE RECORDS SUMMARY | 2025-07-24 06:49 | XMS_ITS | Encounter Summary ---
Author Organization [employer] ([place], [place], [place], [place]) Address [address] [place] [address] Care Team Providers Care Channel Opener Name Role Phone Jay Howell MD Primary Care Provider [phone] Encounter Details Date Type Department Care Team (Late st Contact Info) Description 08/26/2020 Transcribed Document [facility] Family Medicine [address] [place] [address] ProviderJessie MD [address] [place], [place] [address] Social History Tobacco Use Types Packs/Day Years Used Date Smoking Tobacco: Never Assessed Comments Unknown Sex and Gender Information Value Date Recorded Sex Assigned at Not on file Legal Sex Female 7:30 PM CDT Gender Identity Not on file Sexual Orientation Not on file documented as of this encounter Miscellaneous Notes * Cerner Conversion Note - Historical ProviderMD - 08/26/2020 2:41 PM CHURN DRILL OPERATOR Event Note Entered On: 08/26/2020 14:42 [...] - 08/26/2020 18:03 EST Electronically signed by [facility], [facility] Conversion Network Intern Cerner at 02/04/2023 2:15 PM CDT documented in this encounter Plan of Treatment Not on file documented as of this encounter Visit Diagnoses Not on filedocumented in this encounter Care Teams Channel Opener Relationship Specialty Start Date End Date Jay Howell MD [address] [place] [phone] PCP - General Emergency Medicine 11/12/23 documented as of this encounter
--- OUTSIDE RECORDS SUMMARY | 2025-07-24 06:49 | XMS_ITS | Encounter Summary ---
Author Organization [employer] ([place], [place], [place], [place]) Address [address] [place] [address] Care Team Providers Care Handle Attacher Name Role Phone Jay Howell MD Primary Care Provider [phone] Encounter Details Date Type Department Care Team (Late st Contact Info) Description 03/18/2021 Transcribed Document [facility] [place] [facility] [place] [address] ProviderJessie MD [address] [place] [address] Social History Tobacco Use Types Packs/Day Years [...] 03/18/2021 17:56 EDT Electronically signed by Sivan [facility] Conversion Construction Millwright Cerner at 02/04/2023 2:21 PM CDT documented in this encounter Plan of Treatment Not on file documented as of this encounter Visit Diagnoses Not on filedocumented in this encounter Care Teams Handle Attacher Relationship Specialty Start Date End Date Jay Howell MD [address] [place] [phone] PCP - General Emergency Medicine 11/12/23 documented as of this encounter
--- OUTSIDE RECORDS SUMMARY | 2025-07-24 06:49 | XMS_ITS | Encounter Summary ---
Author Organization [employer] ([place], [place], [place], [place]) Address [address] [place] [address] Care Team Providers Care Acid Retort Operator Name Role Phone Jay Howell MD Primary Care Provider [phone] Encounter Details Date Type Department Care Team (Late st Contact Info) Description 08/26/2020 Transcribed Document [facility] [place] [address] [place] [address] ProviderJessie MD [address] [place] [address] Social History Tobacco Use Types Packs/Day Years Used Date Smoking Tobacco: Never Assessed Comments Unknown Sex and Gender Information Value Date Recorded Sex Assigned at Not on file Legal Sex Female 7:30 PM CDT Gender Identity Not on file Sexual Orientation Not on file documented as of this encounter Miscellaneous Notes * Cerner Conversion Note - Historical ProviderMD - 08/26/2020 9:06 AM FOSTER CARE WORKER Patient: SKYLER MONTOYA Age: 79 years Sex: Female : 1940 Associated Diagnoses: None Author: Cheng Jennings, Videotape Operator Cert 79yo female with Left lower extremity [...] PharmD/MPH Candidate Kell OlsonD Electronically signed by [facility], [facility] Conversion Senior Property Accountant Cerner at 02/04/2023 2:17 PM CDT documented in this encounter Plan of Treatment Not on file documented as of this encounter Visit Diagnoses Not on filedocumented in this encounter Care Teams Acid Retort Operator Relationship Specialty Start Date End Date Jay Howell MD [address] [place] [phone] PCP - General Emergency Medicine 11/12/23 documented as of this encounter
--- OUTSIDE RECORDS SUMMARY | 2025-07-24 06:49 | XMS_ITS | Encounter Summary ---
Author Organization [employer] ([place], [place], [place], [place]) Address [address] [place] [address] Care Team Providers Care Senior Engineer Name Role Phone Jay Howell MD Primary Care Provider [phone] Encounter Details Date Type Department Care Team (Late st Contact Info) Description 08/25/2020 Transcribed Document [facility] [place] [address] [place] [address] ProviderJessie MD [address] [place] [address] Social History Tobacco Use Types Packs/Day Years Used Date Smoking Tobacco: Never Assessed Comments Unknown Sex and Gender Information Value Date Recorded Sex Assigned at Not on file Legal Sex Female 7:30 PM CDT Gender Identity Not on file Sexual Orientation Not on file documented as of this encounter Miscellaneous Notes * Cerner Conversion Note - Jessie ProviderMD - 08/25/2020 8:09 AM HEAVY THREADER ED Event Note Entered On: 08/25/2020 8:11 [...] 08/25/2020 8:09 EST Electronically signed by Sivan [facility] Conversion Addiction Nurse Cerner at 02/04/2023 2:06 PM CDT documented in this encounter Plan of Treatment Not on file documented as of this encounter Visit Diagnoses Not on filedocumented in this encounter Care Teams Senior Engineer Relationship Specialty Start Date End Date Jay Howell MD [address] [place] [phone] PCP - General Emergency Medicine 11/12/23 documented as of this encounter
--- OUTSIDE RECORDS SUMMARY | 2025-07-24 06:49 | XMS_ITS | Encounter Summary ---
Author Organization [employer] ([place], [place], [place], [place]) Address [address] [place] [address] Care Team Providers Care On Awake Counselor Name Role Phone Jay Howell MD Primary Care Provider [phone] Encounter Details Date Type Department Care Team (Late st Contact Info) Description 08/26/2020 Transcribed Document [facility] [place] [address] [place] [address] ProviderJessie MD [address] [place] [address] Social History Tobacco Use Types Packs/Day Years Used Date Smoking Tobacco: Never Assessed Comments Unknown Sex and Gender Information Value Date Recorded Sex Assigned at Not on file Legal Sex Female 7:30 PM CDT Gender Identity Not on file Sexual Orientation Not on file documented as of this encounter Miscellaneous Notes * Cerner Conversion Note - Historical ProviderMD - 08/26/2020 10:39 AM OPERATIONS BOARDMAN UM Authorization Entered On: 08/26/2020 10:39 EST Performed On: 08/26/2020 10:39 EST by MARILYNN RAMÍREZ, RN-Utilization Review Primary Insurance Authorization Authorization and Policy Numbers : Insurance 1 Health Plan: MEDICARE Policy Number: [id number] Authorization Number: Insurance 2 Health Plan: AARP N Policy Number: [id number] Authorization Number: Insurance Primary Name : MEDICARE Policy Number: [id number] Authorized Service Begin Date-Primary : 08/25/2020 EST Historical Authorization Comments-Primary : No Authorization Comments Found MARILYNN RAMÍREZ, RN-Utilization Review - 08/26/2020 10:39 EST Electronically signed by Sivan [facility] Conversion Custodian Blood Bank Cerner at 02/04/2023 2:22 PM CDT documented in this encounter Plan of Treatment Not on file documented as of this encounter Visit Diagnoses Not on filedocumented in this encounter Care Teams On Awake Counselor Relationship Specialty Start Date End Date Jay Howell MD [address] [place] [phone] PCP - General Emergency Medicine 11/12/23 documented as of this encounter
--- OUTSIDE RECORDS SUMMARY | 2025-07-24 06:49 | XMS_ITS | Encounter Summary ---
Author Organization [email or web address] ([place], [place], [place], [place]) Address [address] [place] [address] Care Team Providers Care Workforce Advisor Name Role Phone Jay Howell MD Primary Care Provider [phone] Encounter Details Date Type Department Care Team (Late st Contact Info) Description 08/26/2020 Transcribed Document [place] Family Medicine [address] [place] [address] ProviderJessie MD [address] [place], [place] [address] Social History Tobacco Use Types Packs/Day Years Used Date Smoking Tobacco: Never Assessed Comments Unknown Sex and Gender Information Value Date Recorded Sex Assigned at Not on file Legal Sex Female 7:30 PM CDT Gender Identity Not on file Sexual Orientation Not on file documented as of this encounter Miscellaneous Notes * Cerner Conversion Note - Historical ProviderMD - 08/26/2020 2:00 AM BILINGUAL MANAGER Boilermaker Assembly And Erection Details Entered On: 08/26/2020 2:00 EST Performed On: 08/26/2020 2:00 EST by Kervin Kulkarni RN Order Details Isolation Precautions Order Detail : Standard Precautions Order Detail : N/A IV Order Detail : 1 Oxygen Order Detail : 0 Lift/Transfer : Independent Room Service : Not Appropriate Patient Needs Meds Crushed/Liquid : No Kervin Kulkarni RN - 08/26/2020 1:56 EST Electronically signed by Sivan [facility] Conversion Practical Nursing Teacher Cerner at 02/04/2023 2:10 PM CDT documented in this encounter Plan of Treatment Not on file documented as of this encounter Visit Diagnoses Not on filedocumented in this encounter Care Teams Workforce Advisor Relationship Specialty Start Date End Date Jay Howell MD [address] [place] [phone] PCP - General Emergency Medicine 11/12/23 documented as of this encounter
--- OUTSIDE RECORDS SUMMARY | 2025-07-24 06:49 | XMS_ITS | Encounter Summary ---
Author Organization [employer] ([place], [place], [place], [place]) Address [address] [place] [address] Care Team Providers Care Special Agent In Charge Name Role Phone Jay Howell MD Primary Care Provider [phone] Encounter Details Date Type Department Care Team (Late st Contact Info) Description 08/25/2020 Transcribed Document [facility] [place] [address] [place] [address] ProviderJessie MD [address] [place] [address] Social History Tobacco Use Types Packs/Day Years Used Date Smoking Tobacco: Never Assessed Comments Unknown Sex and Gender Information Value Date Recorded Sex Assigned at Not on file Legal Sex Female 7:30 PM CDT Gender Identity Not on file Sexual Orientation Not on file documented as of this encounter Miscellaneous Notes * Cerner Conversion Note - Historical ProviderMD - 08/25/2020 1:02 PM EDDY CURRENT INSPECTOR Patient: SKYLER MONTOYA Age: 79 years [...] Dr. Avtar Moeller Electronically signed by Sivan, [facility] Conversion Development Rep Cerner at 02/04/2023 2:06 PM CDT documented in this encounter Plan of Treatment Not on file documented as of this encounter Visit Diagnoses Not on filedocumented in this encounter Care Teams Special Agent In Charge Relationship Specialty Start Date End Date Jay Howell MD [address] [place] [phone] PCP - General Emergency Medicine 11/12/23 documented as of this encounter
--- OUTSIDE RECORDS SUMMARY | 2025-07-24 06:49 | XMS_ITS | Encounter Summary ---
Author Organization [employer] ([place], [place], [place], [place]) Address [address] [place] [address] Care Team Providers Care Hand Grinder Name Role Phone Jay Howell MD Primary Care Provider [phone] Encounter Details Date Type Department Care Team (Late st Contact Info) Description 08/26/2020 Transcribed Document [facility] [place] [address] [place] [address] ProviderJessie MD [address] [place], [place] [address] Social History Tobacco Use Types Packs/Day Years Used Date Smoking Tobacco: Never Assessed Comments Unknown Sex and Gender Information Value Date Recorded Sex Assigned at Not on file Legal Sex Female 7:30 PM CDT Gender Identity Not on file Sexual Orientation Not on file documented as of this encounter Miscellaneous Notes * Cerner Conversion Note - Historical ProviderMD - 08/26/2020 11:38 AM TRANSFER DRIVER Event Note Entered On: 08/26/2020 11:38 EST [...] on filedocumented in this encounter Care Teams Hand Grinder Relationship Specialty Start Date End Date Jay Howell MD [address] [place] [phone] PCP - General Emergency Medicine 11/12/23 documented as of this encounter
--- OUTSIDE RECORDS SUMMARY | 2025-07-24 06:49 | XMS_ITS | Encounter Summary ---
Author Organization [employer] ([place], [place], [place], [place]) Address [address] [place] [address] Care Team Providers Care Maintenance Supervisor Mechanical Name Role Phone Jay Howell MD Primary Care Provider [phone] Encounter Details Date Type Department Care Team (Late st Contact Info) Description 03/18/2021 Transcribed Document [facility] [place] [facility] [place] [address] ProviderJessie MD [address] [place], [place] [address] Social History Tobacco Use Types Packs/Day Years [...] filedocumented in this encounter Care Teams Maintenance Supervisor Mechanical Relationship Specialty Start Date End Date Jay Howell MD [address] [place] [phone] PCP - General Emergency Medicine 11/12/23 documented as of this encounter
--- OUTSIDE RECORDS SUMMARY | 2025-07-24 06:49 | XMS_ITS | Encounter Summary ---
Author Organization [employer] ([place], [place], [place], [place]) Address [address] [place] [address] Care Team Providers Care Pelt Dropper Name Role Phone Jay Howell MD Primary Care Provider [phone] Encounter Details Date Type Department Care Team (Late st Contact Info) Description 08/25/2020 Transcribed Document [facility] [place] [address] [place] [address] ProviderJessie MD [address] [place] [address] Social History Tobacco Use Types Packs/Day Years Used Date Smoking Tobacco: Never Assessed Comments Unknown Sex and Gender Information Value Date Recorded Sex Assigned at Not on file Legal Sex Female 7:30 PM CDT Gender Identity Not on file Sexual Orientation Not on file documented as of this encounter Miscellaneous Notes * Cerner Conversion Note - Jessie ProviderMD - 08/25/2020 5:06 PM MANUAL ARTS THERAPIST Meds to Bed Enrollment Entered On: 08/26/2020 [...] on filedocumented in this encounter Care Teams Pelt Dropper Relationship Specialty Start Date End Date Jay Howell MD [address] [place] [phone] PCP - General Emergency Medicine 11/12/23 documented as of this encounter
--- OUTSIDE RECORDS SUMMARY | 2025-07-24 06:49 | XMS_ITS | Encounter Summary ---
Author Organization [employer] ([place], [place], [place], [place]) Address [address] [place] [address] Care Team Providers Care Fleet Maintenance Foreman Name Role Phone Jay Howell MD Primary Care Provider [phone] Encounter Details Date Type Department Care Team (Late st Contact Info) Description 03/19/2021 Transcribed Document [facility] [place] [facility] [place] [address] ProviderJessie MD [address] [place], [place] [address] Social History Tobacco Use Types Packs/Day Years [...] these instructions at home: Medicines ??? Take agoq-vqd-eqwlsio and prescription medicines only as told by [...] provider. Document Revised: 01/25/2020 Document Reviewed: 08/22/2019 [employer] Patient Education ? 2019 [employer] Orthopedics Cast or Splint Care, Adult [...] activities are safe for you. ??? Take idsh-yrp-ikojyno and prescription medicines only as told by [...] provider. Document Revised: 07/31/2018 Document Reviewed: 03/26/2017 [employer] Patient Education ? 2020 [employer]. documented in this encounter Plan of Treatment Not on file documented as of this encounter Visit Diagnoses Not on filedocumented in this encounter Care Teams Fleet Maintenance Foreman Relationship Specialty Start Date End Date Jay Howell MD [address] [place] [phone] PCP - General Emergency Medicine 11/12/23 documented as of this encounter
--- OUTSIDE RECORDS SUMMARY | 2025-07-24 06:49 | XMS_ITS | Encounter Summary ---
Author Organization [employer] ([place], [place], [place], [place]) Address [address] [place] [address] Care Team Providers Care Mortgage Loan Originator Name Role Phone Jay Howell MD Primary Care Provider [phone] Encounter Details Date Type Department Care Team (Late st Contact Info) Description 03/18/2021 Transcribed Document [facility] [place] [address] ProviderJessie MD [address] [place], [place] [address] Social History Tobacco Use Types Packs/Day Years [...] Lymph # 1.66 x10(3)/uL 03/18/2021 05:19 EDT Sebastian % 11.4 % (High) 03/18/2021 05:19 EDT Sebastian # 0.75 K/uL 03/18/2021 05:19 EDT Eos [...] on filedocumented in this encounter Care Teams Mortgage Loan Originator Relationship Specialty Start Date End Date Jay Howell MD [address] [place] [phone] PCP - General Emergency Medicine 11/12/23 documented as of this encounter
--- OUTSIDE RECORDS SUMMARY | 2025-07-24 06:49 | XMS_ITS | Encounter Summary ---
Author Organization [employer] ([place], [place], [place], [place]) Address [address] [place] [address] Care Team Providers Care Automatic Hemmer Name Role Phone Jay Howell MD Primary Care Provider [phone] Encounter Details Date Type Department Care Team (Late st Contact Info) Description 03/19/2021 Transcribed Document [facility] [place] [address] [place] [address] ProviderJessie MD [address] [place] [address] Social History Tobacco Use Types Packs/Day Years [...] KENDRA ROJAS, PT - 03/19/2021 17:49 EDT [facility] Goals Mobility/Bed Mobility LTG PT [...] JANENE CHENG PTA - 03/19/2021 16:05 EDT Electronically signed by Sivan [facility] Conversion Invoicing Specialist Cerner at 02/04/2023 1:59 PM CDT documented in this encounter Plan of Treatment Not on file documented as of this encounter Visit Diagnoses Not on filedocumented in this encounter Care Teams Automatic Hemmer Relationship Specialty Start Date End Date Jay Howell MD [address] [place] [phone] PCP - General Emergency Medicine 11/12/23 documented as of this encounter
[2025-07-24 06:50] LABS: Microscopic, Urine URINE MICROSCOPIC (MICROSCOPIC)
--- OUTSIDE RECORDS SUMMARY | 2025-07-24 06:50 | XMS_ITS | Encounter Summary ---
Author Organization [employer] ([place], [place], [place], [place]) Address [address] [place] [address] Care Team Providers Care Childcare Provider Name Role Phone Jay Howell MD Primary Care Provider [phone] Encounter Details Date Type Department Care Team (Late st Contact Info) Description 06/13/2020 Transcribed Document [facility] [place] Medicine [address] [place] [address] ProviderJessie MD [address] [place] [address] Social History Tobacco Use Types Packs/Day Years [...] Insurance 1 Health Plan: MEDICARE Policy Number: [id number] Authorization Number: Insurance 2 Health Plan: AARP N Policy Number: [id number] Authorization Number: Insurance Primary Name : MEDICARE Policy Number: [id number] Authorized Service Begin Date-Primary : 06/12/2020 EDT Historical Authorization Comments-Primary : No Authorization Comments Found MARILYNN RAMÍREZ, RN-Utilization Review - 06/13/2020 9:06 EDT Electronically signed by Sivan [facility] Conversion Youth Associate Cerner at 02/04/2023 2:21 PM CDT documented in this encounter Plan of Treatment Not on file documented as of this encounter Visit Diagnoses Not on filedocumented in this encounter Care Teams Childcare Provider Relationship Specialty Start Date End Date Jay Howell MD [address] [place] [phone] PCP - General Emergency Medicine 11/12/23 documented as of this encounter
--- OUTSIDE RECORDS SUMMARY | 2025-07-24 06:50 | XMS_ITS | Encounter Summary ---
Author Organization [employer] ([place], [place], [place], [place]) Address [address] [place] [address] Care Team Providers Care Consultant Education Name Role Phone Jay Howell MD Primary Care Provider [phone] Encounter Details Date Type Department Care Team (Late st Contact Info) Description 03/16/2021 Transcribed Document [facility] [place] [address] [place] [address] ProviderJessie MD [address] [place], [place] [address] Social History Tobacco Use Types Packs/Day Years Used Date Smoking Tobacco: Never Assessed Comments Unknown Sex and Gender Information Value Date Recorded Sex Assigned at Not on file Legal Sex Female 7:30 PM CDT Gender Identity Not on file Sexual Orientation Not on file documented as of this encounter Miscellaneous Notes * Cerner Conversion Note - Jessie ProviderMD - 03/16/2021 11:24 AM CDT [place] Suicide Severity Rating Scale (C-SSRS) Entered On: 03/16/2021 12:59 EDT Performed On: 03/16/2021 12:57 EDT by Viri Gonsales RN [place] Suicide Severity Rating Scale (C-SSRS) CSSRS Past [...] on filedocumented in this encounter Care Teams Consultant Education Relationship Specialty Start Date End Date Jay Howell MD [address] [place] [phone] PCP - General Emergency Medicine 11/12/23 documented as of this encounter
--- OUTSIDE RECORDS SUMMARY | 2025-07-24 06:50 | XMS_ITS | Encounter Summary ---
Author Organization [employer] ([place], [place], [place], [place]) Address [address] [place] [address] Care Team Providers Care Email Designer Name Role Phone Jay Howell MD Primary Care Provider [phone] Encounter Details Date Type Department Care Team (Late st Contact Info) Description 06/13/2020 Transcribed Document [facility] [place] Medicine [address] [place] [address] ProviderJessie MD [address] [place] [address] Social History Tobacco Use Types Packs/Day Years [...] 06/13/2020 15:38 EDT Electronically signed by Sivan [facility] Conversion Clamp Truck Driver Cerner at 02/04/2023 2:14 PM CDT documented in this encounter Plan of Treatment Not on file documented as of this encounter Visit Diagnoses Not on filedocumented in this encounter Care Teams Email Designer Relationship Specialty Start Date End Date Jay Howell MD [address] [place] [phone] PCP - General Emergency Medicine 11/12/23 documented as of this encounter
--- OUTSIDE RECORDS SUMMARY | 2025-07-24 06:50 | XMS_ITS | Encounter Summary ---
Author Organization [employer] ([place], [place], [place], [place]) Address [address] [place] [address] Care Team Providers Care Tube Cleaner Name Role Phone Jay Howell MD Primary Care Provider [phone] Encounter Details Date Type Department Care Team (Late st Contact Info) Description 06/13/2020 Transcribed Document [facility] [place] [address] [place] [address] ProviderJessie MD [address] [place] [address] Social History Tobacco Use Types Packs/Day Years [...] MD-CAR Basic Information PCP: Avtar Moeller MD Traffic Maintenance Officer: Stephania Garcia MD Chief Complaint Chest pain History of Present Illness 79 year old female with history of CAD s/p CABG (1992) and subsequent stents in 2007 [id number], Paroxysmal atrial fibrillation and prior PE on [...] mg tab 2 mg 1 Tab, Oral, [facility] warfarin 3 mg tab 3 mg 1 [...] History: Active Cataract Glaucoma Coronary artery disease (3775915101) Stented coronary artery (2742707634) High blood pressure (85106644) Hyperlipidemia (33569172) COPD (94585488) GERD - Gastro-esophageal reflux disease (4525553534) Multiple renal cysts (203367309) UTI - Urinary tract infection (3541246836) Arthritis (9821726) Diabetes mellitus (389933627) Emphysema (646204615) Apnea, sleep (509105825) Hx of pulmonary embolus (774608956) Chronic anticoagulation (174121641) Atrial fibrillation with RVR (2474356881) Family History: Cardiomyopathy Child Stroke Brother Heart attack Brother Sister Leukemia Child Cancer Father Mother Sister Coronary heart disease Child Procedure history: Cardiac Stent in 2010 at 70 Years. Coronary artery bypass graft (833285454) in 1992 at 52 Years. femur repair. Appendectomy (057101328). uterine suspension. Hysterectomy (232250009). back surgury. Cholecystectomy (01423818). Hip replacement (9356295506). cataract surgury. Physical Examination VS/Measurements Vitals Signs [...] of motion, Normal strength. Integumentary: Warm, Dry, [place]. Neurologic: Alert, Oriented. Psychiatric: Cooperative, Appropriate mood [...] 24 Hours) Radiology Results (Last 48 hours) [id number] -- 06/12/2020 23:54 CR Chest 1 Vw [...] <0.015 (JUN 13) <0.015 (JUN 12) . [facility] IMPRESSION: Angiographically, the patient has [...] filedocumented in this encounter Care Teams Tube Cleaner Relationship Specialty Start Date End Date Jay Howell MD [address] [place] [phone] PCP - General Emergency Medicine 11/12/23 documented as of this encounter
--- OUTSIDE RECORDS SUMMARY | 2025-07-24 06:50 | XMS_ITS | Encounter Summary ---
Author Organization [employer] ([place], [place], [place], [place]) Address [address] [place] [address] Care Team Providers Care Asphalt Roller Operator Name Role Phone Jay Howell MD Primary Care Provider [phone] Encounter Details Date Type Department Care Team (Late st Contact Info) Description 06/12/2020 Transcribed Document [facility] [place] [address] [place] [address] ProviderJessie MD [address] [place] [address] Social History Tobacco Use Types Packs/Day Years Used Date Smoking Tobacco: Never Assessed Comments Unknown Sex and Gender Information Value Date Recorded Sex Assigned at Not on file Legal Sex Female 7:30 PM CDT Gender Identity Not on file Sexual Orientation Not on file documented as of this encounter Miscellaneous Notes * Cerner Conversion Note - Jessie ProviderMD - 06/12/2020 9:23 PM CDT [place] Suicide Severity Rating Scale (C-SSRS) Entered On: 06/12/2020 22:56 EDT Performed On: 06/12/2020 22:00 EDT by NICOLE BYERS RN [place] Suicide Severity Rating Scale (C-SSRS) CSSRS Past [...] on filedocumented in this encounter Care Teams Asphalt Roller Operator Relationship Specialty Start Date End Date Jay Howell MD [address] [place] [phone] PCP - General Emergency Medicine 11/12/23 documented as of this encounter
--- OUTSIDE RECORDS SUMMARY | 2025-07-24 06:50 | XMS_ITS | Encounter Summary ---
Author Organization [email or web address] ([place], [place], [place], [place]) Address [address] [place] [address] Care Team Providers Care Call Taker Name Role Phone Jay Howell MD Primary Care Provider [phone] Encounter Details Date Type Department Care Team (Late st Contact Info) Description 06/13/2020 Transcribed Document [facility] [place] [address] [place] [address] ProviderJessie MD [address] [place] [address] Social History Tobacco Use Types Packs/Day Years [...] on filedocumented in this encounter Care Teams Call Taker Relationship Specialty Start Date End Date Jay Howell MD [address] [place] [phone] PCP - General Emergency Medicine 11/12/23 documented as of this encounter
--- OUTSIDE RECORDS SUMMARY | 2025-07-24 06:50 | XMS_ITS | Encounter Summary ---
Author Organization [employer] ([place], [place], [place], [place]) Address [address] [place] [address] Care Team Providers Care Security Control Assessor Name Role Phone Jay Howell MD Primary Care Provider [phone] Encounter Details Date Type Department Care Team (Late st Contact Info) Description 06/12/2020 Transcribed Document [facility] [place] Family Medicine [address] [place] [address] ProviderJessie MD [address] [place] [address] Social History Tobacco Use Types Packs/Day Years Used Date Smoking Tobacco: Never Assessed Comments Unknown Sex and Gender Information Value Date Recorded Sex Assigned at Not on file Legal Sex Female 7:30 PM CDT Gender Identity Not on file Sexual Orientation Not on file documented as of this encounter Miscellaneous Notes * Cerner Conversion Note - Historical ProviderMD - 06/12/2020 9:45 PM CDT Patient: SKYLER [...] Years. Coronary artery bypass graft (SNOMED CT 331354199) in 1992 at 52 Years. femur repair. Appendectomy (SNOMED CT 832339322). uterine suspension. Hysterectomy (SNOMED CT 309920688). back surgury. Cholecystectomy (SNOMED CT 48491931). Hip replacement (SNOMED CT 1311724884). cataract surgury., Reviewed as documented in chart. [...] EDT Height Source Stated Height Entry Format [place] Height/Length, LAO (ft) 5 ft Height/Length LAO 3 Inch CLINICALHEIGHT 160.02 cm [place] Body Weight 52.02 kg Weight Source, ED Critical estimated dosing weight Weight Entry Format [place] Weight [place] lb 161 lb CLINICALWEIGHT 73.18 kg Body [...] rhythm, No ST changes, no ectopy, normal MI & QRS intervals, EP Interp. Electrocardiogram: Time 06/13/2020 00:55:00, rate 67, normal sinus rhythm, No ST changes, no ectopy, normal MI & QRS intervals, EP Interp. Results review: [...] % 34.6 % Lymph # 1.99 x10(3)/uL [place] % 10.6 % HI [place] # 0.61 K/uL Eos % 2.1 % [...] type: Telemetry unit, Admitting: MARIA ELENA DAVALOS [facility] . Counseled: Patient, Family, Regarding diagnosis, Regarding diagnostic results, Regarding treatment plan, Patient indicated understanding of instructions. Notes: Patient presents with hypertensive urgency and chest pain. Initial EKG and troponin negative. Blood pressure decreased after IV hydralazine, labetalol, and transdermal Nitropaste. Discussed with Dr. Davalos, hospitalist, he accepts admission for further evaluation and care.. Electronically signed by Sivan [facility] Conversion Needle Bar Molder Cerner at 02/04/2023 2:16 PM CDT documented in this encounter Plan of Treatment Not on file documented as of this encounter Visit Diagnoses Not on filedocumented in this encounter Care Teams Security Control Assessor Relationship Specialty Start Date End Date Jay Howell MD [address] [place] [phone] PCP - General Emergency Medicine 11/12/23 documented as of this encounter
--- OUTSIDE RECORDS SUMMARY | 2025-07-24 06:50 | XMS_ITS | Encounter Summary ---
Author Organization [employer] ([place], [place], [place], [place]) Address [address] [place] [address] Care Team Providers Care Janitor Custodian Name Role Phone Jay Howell MD Primary Care Provider [phone] Encounter Details Date Type Department Care Team (Late st Contact Info) Description 06/12/2020 Transcribed Document [facility] [place] Family [place] [address] [place] [address] ProviderJessie MD [address] [place] [address] Social History Tobacco Use Types Packs/Day Years [...] : 2 - Emergent Tracking Group : [facility] ED Roni Peralta RN - 06/12/2020 [...] 21:35:03 EDT) Problems(Active) Apnea, sleep (SNOMED CT :377014008 ) Name of Problem: Apnea, sleep ; Recorder: JUAN LUIS GIL RN; Confirmation: Confirmed ; Classification: Medical ; Code: 380579464 ; Contributor System: PowerChart ; Last Updated: 11/12/2014 10:12 EST ; Life Cycle Date: 11/12/2014 ; Life Cycle Status: Active ; Vocabulary: SNOMED CT Arthritis (SNOMED CT :0726781 ) Name of Problem: Arthritis ; Recorder: KENYON CHAMBERS RN; Confirmation: Confirmed ; Classification: Medical ; Code: 4043366 ; Contributor System: PowerChart ; Last Updated: 04/10/2016 8:04 EDT ; Life Cycle Date: 08/13/2013 ; Life Cycle Status: Active ; Vocabulary: SNOMED CT Atrial fibrillation with RVR (SNOMED CT :1273964579 ) Name of Problem: Atrial fibrillation with RVR ; Recorder: SANG RICO APRN; Confirmation: Confirmed ; Classification: Medical ; Code: 7148657511 ; Contributor System: PowerChart ; Last Updated: 04/10/2016 8:05 EDT ; Life Cycle Date: 04/10/2016 ; Life Cycle Status: Active ; Responsible Provider: SANG RICO APRN; Vocabulary: SNOMED CT Blood clot (SNOMED CT :267719554 ) Name of Problem: Blood clot ; Recorder: KENYON CHAMBERS RN; Confirmation: Confirmed ; Classification: Patient Stated ; Code: 946389499 ; Contributor System: PowerChart ; Last Updated: [...] Vocabulary: Patient Care Chest pain (SNOMED CT :83142932 ) Name of Problem: Chest pain ; Recorder: SANG RICO APRN; Confirmation: Complaint of ; Classification: Medical ; Code: 35279395 ; Contributor System: PowerChart ; Last Updated: 04/10/2016 8:05 EDT ; Life Cycle Status: Active ; Responsible Provider: SANG RICO APRN; Vocabulary: SNOMED CT Chronic anticoagulation (SNOMED CT :487522497 ) Name of Problem: Chronic anticoagulation ; Recorder: SANG RICO APRN; Confirmation: Confirmed ; Classification: Medical ; Code: 031932001 ; Contributor System: PowerChart ; Last Updated: 04/10/2016 8:05 EDT ; Life Cycle Date: 04/10/2016 ; Life Cycle Status: Active ; Responsible Provider: SANG RICO APRN; Vocabulary: SNOMED CT Clotting disorder (SNOMED CT :355869506 ) Name of Problem: Clotting disorder ; Recorder: KENYON CHAMBERS RN; Confirmation: Confirmed ; Classification: Patient Stated ; Code: 521629478 ; Contributor System: PowerChart ; Last Updated: 03/28/2014 19:29 EDT ; Life Cycle Date: 08/13/2013 ; Life Cycle Status: Active ; Vocabulary: SNOMED CT COPD (SNOMED CT :39953813 ) Name of Problem: COPD ; Recorder: KENYON CHAMBERS RN; Confirmation: Confirmed ; Classification: Medical ; Code: 90008100 ; Contributor System: PowerChart ; Last Updated: 04/10/2016 8:03 EDT ; Life Cycle Date: 08/13/2013 ; Life Cycle Status: Active ; Vocabulary: SNOMED CT Coronary artery disease (SNOMED CT :2137030863 ) Name of Problem: Coronary artery disease ; Recorder: KENYON CHAMBERS RN; Confirmation: Confirmed ; Classification: Medical ; Code: 6563907019 ; Contributor System: PowerChart ; Last Updated: 04/10/2016 8:03 EDT ; Life Cycle Date: 08/13/2013 ; Life Cycle Status: Active ; Vocabulary: SNOMED CT Diabetes mellitus (SNOMED CT :664794336 ) Name of Problem: Diabetes mellitus ; Recorder: KENYON CHAMBERS RN; Confirmation: Confirmed ; Classification: Medical ; Code: 716247870 ; Contributor System: PowerChart ; Last Updated: 04/10/2016 8:04 EDT ; Life Cycle Date: 08/13/2013 ; Life Cycle Status: Active ; Vocabulary: SNOMED CT Emphysema (SNOMED CT :531543578 ) Name of Problem: Emphysema ; Recorder: JUAN LUIS GIL RN; Confirmation: Confirmed ; Classification: Medical ; Code: 372957239 ; Contributor System: PowerChart ; Last Updated: 11/12/2014 10:11 EST ; Life Cycle Date: 11/12/2014 ; Life Cycle Status: Active ; Vocabulary: SNOMED CT GERD - Gastro-esophageal reflux disease (SNOMED CT :2833300817 ) Name of Problem: GERD - Gastro-esophageal reflux disease ; Recorder: KENYON CHAMBERS RN; Confirmation: Confirmed ; Classification: Medical ; Code: 9071764434 ; Contributor System: PowerChart ; Last Updated: [...] Patient Care High blood pressure (SNOMED CT :03467223 ) Name of Problem: High blood pressure ; Recorder: KENYON CHAMBERS RN; Confirmation: Confirmed ; Classification: Medical ; Code: 73015665 ; Contributor System: PowerChart ; Last Updated: 04/10/2016 8:03 EDT ; Life Cycle Date: 08/13/2013 ; Life Cycle Status: Active ; Vocabulary: SNOMED CT History of obstructive sleep apnea (IMO :08928337 ) Name of Problem: History of obstructive sleep apnea ; Recorder: SYSTEM, SYSTEM; Confirmation: Confirmed ; Classification: Medical ; Code: 08482803 ; Last Updated: 12/20/2018 12:01 EST ; Life Cycle Date: 12/20/2018 ; Life Cycle Status: Active ; Vocabulary: IMO Hx of pulmonary embolus (SNOMED CT :234386083 ) Name of Problem: Hx of pulmonary embolus ; Recorder: SANG RICO APRN; Confirmation: Confirmed ; Classification: Medical ; Code: 591544452 ; Contributor System: PowerChart ; Last Updated: 04/10/2016 8:05 EDT ; Life Cycle Date: 04/10/2016 ; Life Cycle Status: Active ; Responsible Provider: SANG RICO APRN; Vocabulary: SNOMED CT Hyperlipidemia (SNOMED CT :31621243 ) Name of Problem: Hyperlipidemia ; Recorder: KENYON CHAMBERS RN; Confirmation: Confirmed ; Classification: Medical ; Code: 97451606 ; Contributor System: [employer] ; Last Updated: 04/10/2016 8:03 EDT ; Life Cycle Date: 08/13/2013 ; Life Cycle Status: Active ; Vocabulary: SNOMED CT Multiple renal cysts (SNOMED CT :180221084 ) Name of Problem: Multiple renal cysts ; Recorder: KENYON CHAMBERS RN; Confirmation: Confirmed ; Classification: Medical ; Code: 288916621 ; Contributor System: PowerChart ; Last Updated: 04/10/2016 8:04 EDT ; Life Cycle Date: 08/13/2013 ; Life Cycle Status: Active ; Vocabulary: SNOMED CT Stented coronary artery (SNOMED CT :2957573096 ) Name of Problem: Stented coronary artery ; Recorder: KENYON CHAMBERS RN; Confirmation: Confirmed ; Classification: Medical ; Code: 2544004836 ; Contributor System: PowerChart ; Last Updated: 04/10/2016 8:03 EDT ; Life Cycle Date: 08/13/2013 ; Life Cycle Status: Active ; Vocabulary: SNOMED CT UTI - Urinary tract infection (SNOMED CT :3573793962 ) Name of Problem: UTI - Urinary tract infection ; Recorder: KENYON CHAMBERS RN; Confirmation: Confirmed ; Classification: Medical ; Code: 7806026108 ; Contributor System: PowerChart ; Last Updated: 04/10/2016 8:04 EDT ; Life Cycle Date: 08/13/2013 ; Life Cycle Status: Active ; Vocabulary: SNOMED CT Diagnoses(Active) Chest pain Date: 06/12/2020 ; Diagnosis Type: Reason For Visit ; Confirmation: Complaint of ; Clinical Dx: Chest pain ; Classification: Medical ; Clinical Service: Emergency medicine ; Code: PNED ; Probability: 0 ; Diagnosis Code: [id number] ED Height and Weight Height Source : Stated Height Entry Format : Ault Height, Feet : 5 ft(Converted to: 152 cm, 60 Inch) Height, Inches : 3 Inch(Converted to: 0 ft 3 Inch, 7.62 cm) Clinical Height : 160.02 cm Weight Source, ED : Critical estimated dosing weight Weight Entry Format : Ault Weight, Pounds : 161 lb Clinical Dosing Weight : 73.18 kg Body Surface Area (BSA) : 1.77 m2 Body Mass Index : 28.6 kg/m2 (HI) [place] Body Weight (IBW) : 52.02 kg Roni Peralta RN - 06/12/2020 21:31 EDT documented in this encounter Plan of Treatment Not on file documented as of this encounter Visit Diagnoses Not on filedocumented in this encounter Care Teams Janitor Custodian Relationship Specialty Start Date End Date Jay Howell MD [address] [place] [phone] PCP - General Emergency Medicine 11/12/23 documented as of this encounter
--- OUTSIDE RECORDS SUMMARY | 2025-07-24 06:50 | XMS_ITS | Encounter Summary ---
Author Organization [email or web address] ([place], [place], [place], [place]) Address [address] [place] [address] Care Team Providers Care Blow Machine Tender Starch Spraying Name Role Phone Jay Howell MD Primary Care Provider [phone] Encounter Details Date Type Department Care Team (Late st Contact Info) Description 06/12/2020 Transcribed Document [facility] [place] Medicine [address] [place] [address] ProviderJessie MD [address] [place] [address] Social History Tobacco Use Types Packs/Day Years [...] form. Electronically signed by Gayle Finnegan Conversion Real Estate Transaction Coordinator Cerner at 02/04/2023 2:11 PM CDT documented in this encounter Plan of Treatment Not on file documented as of this encounter Visit Diagnoses Not on filedocumented in this encounter Care Teams Blow Machine Tender Starch Spraying Relationship Specialty Start Date End Date Jay Howell MD [address] [place] [phone] PCP - General Emergency Medicine 11/12/23 documented as of this encounter
--- OUTSIDE RECORDS SUMMARY | 2025-07-24 06:50 | XMS_ITS | Encounter Summary ---
Author Organization [employer] ([place], [place], [place], [place]) Address [address] [place] [address] Care Team Providers Care Steward/Stewardess Economy Class Name Role Phone Jay Howell MD Primary Care Provider [phone] Encounter Details Date Type Department Care Team (Late st Contact Info) Description 06/13/2020 Transcribed Document [facility] [place] [address] [place] [address] ProviderJessie MD [address] [place] [address] Social History Tobacco Use Types Packs/Day Years [...] NICOLE BYERS RN - 06/13/2020 2:49 EDT Electronically signed by Gayle Finnegan Conversion Independent Sales Representative Cerner at 02/04/2023 2:15 PM CDT documented in this encounter Plan of Treatment Not on file documented as of this encounter Visit Diagnoses Not on filedocumented in this encounter Care Teams Steward/Stewardess Economy Class Relationship Specialty Start Date End Date Jay Howell MD [address] [place] [phone] PCP - General Emergency Medicine 11/12/23 documented as of this encounter
--- OUTSIDE RECORDS SUMMARY | 2025-07-24 06:50 | XMS_ITS | Encounter Summary ---
Author Organization [employer] ([place], [place], [place], [place]) Address [address] [place] [address] Care Team Providers Care Oncology Rn Name Role Phone Jay Howell MD Primary Care Provider [phone] Encounter Details Date Type Department Care Team (Late st Contact Info) Description 03/16/2021 Transcribed Document [facility] [place] Family Medicine [address] [place] [address] ProviderJessie MD [address] [place], [place] [address] Social History Tobacco Use Types Packs/Day Years [...] 03/16/2021 12:57 EDT Electronically signed by Sivan [facility] Conversion Director Mission Cerner at 02/04/2023 1:58 PM CDT documented in this encounter Plan of Treatment Not on file documented as of this encounter Visit Diagnoses Not on filedocumented in this encounter Care Teams Oncology Rn Relationship Specialty Start Date End Date Jay Howell MD [address] [place] [phone] PCP - General Emergency Medicine 11/12/23 documented as of this encounter
--- OUTSIDE RECORDS SUMMARY | 2025-07-24 06:50 | XMS_ITS | Encounter Summary ---
Author Organization [place] [address] Care Team Providers Care Mononitrotoluene Operator Name Role Phone No Pcp, Per Patient Primary Care Provider Evelyne prabhakar Reason for Visit * Reason Onset Date Comments Appointment Needed 06/28/2025 Encounter Details Date Type Department Care Team (Late st Contact Info) Description 06/28/2025 Telephone [facility] [address] [place] [address] Sukh Garner, DO [address] [place], [place] [id number] Appointment Needed Social History Tobacco Use Types Packs/Day Years Used Date Smoking Tobacco: Former Cigarettes Q uit: 1991 Passive Smoke Exposure: Past Smokeless Tobacco: Never Alcohol Use Standard Drinks/Week Comments Not Currently 0 (1 standard drink = 0.6 oz pur e alcohol) [facility] Utilities Answer Date Recorded In the past 12 months has [employer] electric, gas, oil, or water company threatened to shut off services in your home? No 06/23/2025 Overall Financial Resource Strain (CARDIA) Answe r Date Recorded How hard is it for you to pa y for the very basics like food, housing, medical care, and heating? Not very hard 06/23/2025 PHQ-2 Answer Date Recorded PHQ-2 Total Score 0 06/23/2025 [facility] [place] of Occupat ional Health - Occupational Stress [...] money to get more. Never true 06/23/2025 [facility] IP Transportation Answer D [...] book for HFU until August Appointment location: [facility] Call back number: [phone] (sister, goes by Sarah) documented in this [...] documented as of this encounter Care Teams Mononitrotoluene Operator Relationship Specialty Start Date End Date No Pcp, Per Patient PCP - General 06/04/24 documented as of this encounter
--- OUTSIDE RECORDS SUMMARY | 2025-07-24 06:50 | XMS_ITS | Encounter Summary ---
Author Organization [employer] ([place], [place], [place], [place]) Address [address] [place] [address] Care Team Providers Care Venetian Blind Maker Name Role Phone Jay Howell MD Primary Care Provider [phone] Encounter Details Date Type Department Care Team (Late st Contact Info) Description 03/16/2021 Transcribed Document [facility] [place] [address] [place] [address] ProviderJessie MD [address] [place] [address] Social History Tobacco Use Types Packs/Day Years [...] EDT - EVA WESLEY RN PCI w/ [place] stent to D1 Coronary artery bypass graft ([id number]) in 1992 at 52 Years. femur repair. Appendectomy ([id number]). uterine suspension. Hysterectomy ([id number]). back surgury. Cholecystectomy ([id number]). Hip replacement ([id number]). cataract surgury.. Family history: Cardiomyopathy Child Stroke [...] EDT Height Source Stated Height Entry Format Garrison Height/Length, KITTITIAN (ft) 5 ft Height/Length KITTITIAN 3 Inch CLINICALHEIGHT 160.02 cm [place] Body Weight 52.02 kg Weight Source, ED Critical estimated dosing weight Weight Entry Format Garrison Weight South African lb 158 lb CLINICALWEIGHT 71.82 kg Body [...] Triage: ED C-SSRS: ED Clinical Reconciliation: ED aging room hand: Lactic Acid Level with Reflex if Indicated: Lipase Level: Normal Saline Bolus: 500 mL, 500 mL/Hr, IV Piggyback, 1-Time PT/INR Prothrombin Time: PTT: Saline Lock Insert: Troponin I Ultra: Urinalysis UA Rflx Microscopic Cult if Ind: Zofran: 4 mg, IV Push, 1-Time. cardiac monitor: Normal sinus rhythm. Electrocardiogram: Time 03/16/2021 11:38:00, rate 59, normal sinus rhythm, No ST changes, no ectopy, normal W[place] & QRS intervals, EP Interp. Results review: All Results 03/16/2021 14:09 EDT Urine Type. U CleanCatch Urine Color Yellow Urine Appearance Clear Urine Specific Riggins 1.014 Urine pH Dipstick 5.5 LOW Urine [...] 15.6 % LOW Lymph # 1.52 x10(3)/uL [place] % 5.1 % [place] # 0.50 K/uL Eos % 0.0 % Eos # 0.00 x10(3)/uL Baso % 0.3 % Baso # 0.03 x10(3)/uL Slide Review No IG# 0.06 x10(3)/uL HI IG% 0.60 % . Radiology results: Radiology Results (Last 48 hours) [id number] -- 03/16/2021 11:24 CR Hip Uni Comp [...] Care: Telemetry unit, Admitting: MARIA ELENA DAVALOS [facility], Launch Orders Consults: Consult to Physician (Order): Start: 03/16/2021 15:29 EDT, Consult to: SAMANTHA PINA MD-[facility], For right wrist fracture, Biologics Specialist Notified by Physician, Group/Instructions: [facility] orth[facility]. Notes: I certify that the MLP/INSTALLATION ENGINEER performed the services as delegated. . Electronically signed by Sivan [facility] Conversion Ladle Repairer Cerner at 02/04/2023 1:57 PM CDT documented in this encounter Plan of Treatment Not on file documented as of this encounter Visit Diagnoses Not on filedocumented in this encounter Care Teams Venetian Blind Maker Relationship Specialty Start Date End Date Jay Howell MD [address] [place] [phone] PCP - General Emergency Medicine 11/12/23 documented as of this encounter
--- OUTSIDE RECORDS SUMMARY | 2025-07-24 06:50 | XMS_ITS | Encounter Summary ---
Author Organization [employer] ([place], [place], [place], [place]) Address [address] [place] [address] Care Team Providers Care Inspector Finishing Name Role Phone Jay Howell MD Primary Care Provider [phone] Encounter Details Date Type Department Care Team (Late st Contact Info) Description 12/21/2018 Transcribed Document [facility] [place] Family Medicine [facility] [place] [address] ProviderJessie MD [address] [place] [address] Social History Tobacco Use Types Packs/Day Years Used Date Smoking Tobacco: Never Assessed Comments Unknown Sex and Gender Information Value Date Recorded Sex Assigned at Not on file Legal Sex Female 7:30 PM CDT Gender Identity Not on file Sexual Orientation Not on file documented as of this encounter Miscellaneous Notes * Cerner Conversion Note - Jessie Yuen MD - 12/21/2018 11:47 AM KNITTING DEMONSTRATOR [address] , [place], [place] [phone] Patient Copy Patient Information: Name: SKYLER MONTOYA Current Date: 12/21/2018 11:47:13 : 1940 Patient Address: [address] [place] [phone] Patient Attending Physician: FREDY YAÑEZ MD-CAR Primary Care Provider: TARA CHEN (REF), -MED Primary Care Provider Discharge Diagnosis: CAD (coronary artery disease); DM (diabetes mellitus); Exertional angina; HLD (hyperlipidemia); HTN (hypertension); Hx of CABG; DANTE (obstructive sleep apnea); Paroxysmal A-fib Weight on Admission: 158 lb, 0 oz Comment: Follow-up Instructions: With: Address: When: [facility] [address], [place] [address] [place] [address] Business (1) In 1 month 01/21/2019 With: Address: When: [facility] [address], [address] [place], [place] [phone] Business (1) Within 2 to 5 weeks [...] What foods can I eat? GrainsBreads, including Greek, white, jie, wheat, raisin, rye, oatmeal, and [place]. Tortillas that are neither fried nor made with lard or trans fat. Low-fat rolls, including hotdog and hamburger buns and [place]ambican muffins. Biscuits. Muffins. Waffles. Pancakes. Light popcorn. Whole-grain cereals. Flatbread. [place] toast. Pretzels. Breadsticks. Rusks. Low-fat snacks. Low-fat [...] cottage cheese. Whole-milk cheeses, including blue (fredo), [place], Brie, Nate, Greek, Havarti, Micronesian, cheddar, Camembert, and [place]. Whole or 2% milk that is liquid, [...] that has suet, meat fat, or shortening. [place] butter, hydrogenated oils, palm oil, coconut oil, [...] can cause a heart attack (myocardial infarction, RI). CAD is a leading cause of for [...] 12/25/2012 Document Revised: 03/10/2017 Document Reviewed: 02/04/2015 [employer] Interactive Patient Education ? 2017 [employer]. Groin Site Care Refer to this [...] Document Reviewed: 11/05/2011 ExitCare? Patient Information ?2013 [employer]. Angiogram An angiogram, also called angiography, is [...] including vitamins, herbs, eye drops, creams, and bfqt-wrt-lbbymym medicines. ??? Any problems you or family [...] 03/06/2014 Elsevier Interactive Patient Education ? 2017 [employer]. Medication Leaflets: valsartan (elin LILY foster) [...] valsartan; ?? if you are on a lqc-sxjh-zbwf; ?? if you are dehydrated; or ?? [...] may report side effects to FDA at 8-663-PNO-7951. What other drugs will affect valsartan? Tell [...] may interact with valsartan, including prescription and smgb-oaa-gyatqoe medicines, vitamins, and herbal products. Not all [...] to ensure that the information provided by [employer]. ('Multum') is accurate, up-to-date, and complete, but no guarantee is made to that effect. Drug information contained herein may be time sensitive. [employer] information has been compiled for use by healthcare practitioners and consumers in the [place] and therefore [employer] does not warrant that uses outside of the [place] are appropriate, unless specifically indicated otherwise. [employer]'s drug information does not endorse drugs, diagnose patients or recommend therapy. [employer]'s drug information is an informational resource designed [...] effective or appropriate for any given patient. [facility] does not assume any responsibility for any aspect of healthcare administered with the aid of information [facility] provides. The information contained herein is not intended to cover all possible uses, directions, precautions, warnings, drug interactions, allergic reactions, or adverse effects. If you have questions about the drugs you are taking, check with your doctor, nurse or pharmacist. Copyright 1979-8505 [facility] [employer] - [employer]. Version: 16.05. Revision Date: 09/08/2016. hydralazine (bob [...] may report side effects to FDA at 9-064-JWP-1944. What other drugs will affect hydralazine? Tell your doctor about all your current medicines and any you start or stop using, especially: ? diazoxide (an injectable blood pressure medication); or ?? an MAO inhibitor--isocarboxazid, linezolid, methylene blue injection, phenelzine, rasagiline, selegiline, tranylcypromine, and others. This list is not complete. Other drugs may interact with hydralazine, including prescription and pkpa-hpr-shwbhup medicines, vitamins, and herbal products. Not all [...] to ensure that the information provided by [employer]. ('Multum') is accurate, up-to-date, and complete, but no guarantee is made to that effect. Drug information contained herein may be time sensitive. [employer] information has been compiled for use by healthcare practitioners and consumers in the [place] and therefore [employer] does not warrant that uses outside of the [place] are appropriate, unless specifically indicated otherwise. [employer]'s drug information does not endorse drugs, diagnose patients or recommend therapy. [employer] drug information is an informational resource designed [...] effective or appropriate for any given patient. [employer] does not assume any responsibility for any aspect of healthcare administered with the aid of information [employer] provides. The information contained herein is not intended to cover all possible uses, directions, precautions, warnings, drug interactions, allergic reactions, or adverse effects. If you have questions about the drugs you are taking, check with your doctor, nurse or pharmacist. Copyright 4831-3437 [employer]. Version: 5.01. Revision Date: 10/26/2017. amlodipine (am [...] may report side effects to FDA at 1-440-XSS-1904. What other drugs will affect amlodipine? Tell your doctor about all your current medicines and any you start or stop using, especially: ? nitroglycerin; ?? simvastatin (Zocor, Simcor, Vytorin); or ?? any other heart or blood pressure medications. This list is not complete. Other drugs may interact with amlodipine, including prescription and ydwa-ijb-mxpkzvg medicines, vitamins, and herbal products. Not all [...] to ensure that the information provided by [employer]. ('Multum') is accurate, up-to-date, and complete, but no guarantee is made to that effect. Drug information contained herein may be time sensitive. [employer] information has been compiled for use by healthcare practitioners and consumers in the [place] and therefore [employer] does not warrant that uses outside of the [place] are appropriate, unless specifically indicated otherwise. [employer] drug information does not endorse drugs, diagnose patients or recommend therapy. [employer] drug information is an informational resource designed [...] effective or appropriate for any given patient. [employer] does not assume any responsibility for any aspect of healthcare administered with the aid of information [employer] provides. The information contained herein is not intended to cover all possible uses, directions, precautions, warnings, drug interactions, allergic reactions, or adverse effects. If you have questions about the drugs you are taking, check with your doctor, nurse or pharmacist. Copyright 0719-4225 [employer]. Version: 14.. Revision Date: 01/24/2017. clopidogrel (kloe [...] may report side effects to FDA at 2-661-NVD-7987. What other drugs will affect clopidogrel? Certain other medicines may increase your risk of bleeding, including aspirin. Avoid taking aspirin unless your doctor tells you to. Tell your doctor about all your other medicines, especially: ? any other medicines to treat or prevent blood clots; ?? a stomach acid food service steward such as omeprazole, Nexium, or Prilosec; ?? an antidepressant; ?? an opioid medication; ?? a blood thinner--warfarin, Coumadin, Jantoven; or ?? NSAIDs (nonsteroidal anti-inflammatory drugs)--ibuprofen (Advil, Motrin), naproxen (Aleve), celecoxib, diclofenac, indomethacin, meloxicam, and others. This list is not complete. Other drugs may affect clopidogrel, including prescription and hhwd-duu-mzwvtcj medicines, vitamins, and herbal products. Not all [...] to ensure that the information provided by [employer]. ('Multum') is accurate, up-to-date, and complete, but no guarantee is made to that effect. Drug information contained herein may be time sensitive. [employer]Critter information has been compiled for use by healthcare practitioners and consumers in the [place] and therefore [employer]Critter does not warrant that uses outside of the [place] are appropriate, unless specifically indicated otherwise. [employer]ter's drug information does not endorse drugs, diagnose patients or recommend therapy. [employer]ives drug information is an informational resource designed [...] effective or appropriate for any given patient. [employer] does not assume any responsibility for any aspect of healthcare administered with the aid of information [employer] provides. The information contained herein is not intended to cover all possible uses, directions, precautions, warnings, drug interactions, allergic reactions, or adverse effects. If you have questions about the drugs you are taking, check with your doctor, nurse or pharmacist. Copyright 9943-6201 [employer]. Version: 15.01. Revision Date: 08/07/2018. ranolazine (ra [...] following drugs: ? clarithromycin; ?? nefazodone; ?? [place]'s wort; ?? antifungal medicine--itraconazole, ketoconazole; ?? HIV [...] may report side effects to FDA at 0-116-JLO-5762. What other drugs will affect ranolazine? Many [...] interact with ranolazine. This includes prescription and qjnw-snt-fqkprvf medicines, vitamins, and herbal products. Give a [...] to ensure that the information provided by [employer]. ('Multum') is accurate, up-to-date, and complete, but no guarantee is made to that effect. Drug information contained herein may be time sensitive. [employer]ter information has been compiled for use by healthcare practitioners and consumers in the [place] and therefore [employer]Critter does not warrant that uses outside of the [place] are appropriate, unless specifically indicated otherwise. [employer]'s drug information does not endorse drugs, diagnose patients or recommend therapy. [employer]Six[employer]ives drug information is an informational resource designed [...] effective or appropriate for any given patient. [employer] does not assume any responsibility for any aspect of healthcare administered with the aid of information [employer] provides. The information contained herein is not intended to cover all possible uses, directions, precautions, warnings, drug interactions, allergic reactions, or adverse effects. If you have questions about the drugs you are taking, check with your doctor, nurse or pharmacist. Copyright 3116-2173 [employer]. Version: 11.. Revision Date: 12/04/2015. CIGARETTE SMOKING: The facts are clear, cigarette smoking will shorten your life. Smoking can cause many illnesses along the way. As a healthcare provider, we recommend that you stop smoking. Assistance with quitting is available by contacting 3-487-KXWT-NOW. This is a free resource providing counseling, [...] Be sure to sign up for the Social[employer]i patient portal, which gives you 09/05 access to your medical information ??? including these discharge instructions ??? using your computer, smartphone, or tablet. Just go to [employer]andy to get started. Questions? Call . [facility] would like to thank you for allowing us to assist you with your healthcare needs. MICHELE Skaggs JUDY D, (or insurance sales representative) have received the above patient education materials/instructions and have verbalized understanding: Patient Signature _ Date/Time Patient Director Of Operations Signature (if needed) Date/Time Clinician/Hospital Director Of Operations Signature (if needed) Date/Time Electronically signed by [facility], [facility] Conversion Picker And Packer Cerner at 02/04/2023 2:20 PM CDT documented in this encounter Plan of Treatment Not on file documented as of this encounter Visit Diagnoses Not on filedocumented in this encounter Care Teams Inspector Finishing Relationship Specialty Start Date End Date Jay Howell MD [address] [place] [phone] PCP - General Emergency Medicine 11/12/23 documented as of this encounter
--- OUTSIDE RECORDS SUMMARY | 2025-07-24 06:50 | XMS_ITS | Encounter Summary ---
Author Organization [employer] ([place], [place], [place], [place]) Address [address] [place] [address] Care Team Providers Care Sand Screener Operator Name Role Phone Jay Howell MD Primary Care Provider [phone] Encounter Details Date Type Department Care Team (Late st Contact Info) Description 12/21/2018 Transcribed Document [facility] [place] Family Medicine [address] [place] [address] ProviderJessie MD [address] [place] [address] Social History Tobacco Use Types Packs/Day Years Used Date Smoking Tobacco: Never Assessed Comments Unknown Sex and Gender Information Value Date Recorded Sex Assigned at Not on file Legal Sex Female 7:30 PM CDT Gender Identity Not on file Sexual Orientation Not on file documented as of this encounter Miscellaneous Notes * Cerner Conversion Note - Jessie ProviderMD - 12/21/2018 11:46 AM ELECTRIC SEALING MACHINE OPERATOR Nursing Discharge Summary Entered On: 12/21/2018 11:46 [...] - 12/21/2018 11:46 EST Electronically signed by [facility], [facility] Conversion Road Sign Installer Cerner at 02/04/2023 2:08 PM CDT documented in this encounter Plan of Treatment Not on file documented as of this encounter Visit Diagnoses Not on filedocumented in this encounter Care Teams Sand Screener Operator Relationship Specialty Start Date End Date Jay Howell MD [address] [place] [phone] PCP - General Emergency Medicine 11/12/23 documented as of this encounter
--- OUTSIDE RECORDS SUMMARY | 2025-07-24 06:50 | XMS_ITS | Encounter Summary ---
Author Organization [employer] ([place], [place], [place], [place]) Address [address] [place] [address] Care Team Providers Care Manager Wind Name Role Phone Jay Howell MD Primary Care Provider [phone] Encounter Details Date Type Department Care Team (Late st Contact Info) Description 03/16/2021 Transcribed Document [facility] [place] Family Medicine [address] [place] [address] ProviderJessie MD [address] [place] [address] [phone] Social History Tobacco Use Types Packs/Day Years [...] : 2 - Emergent Tracking Group : [facility] NICOLE CHEN RN - 03/16/2021 [...] 11:35:39 EDT) Problems(Active) Apnea, sleep (SNOMED CT :737095230 ) Name of Problem: Apnea, sleep ; Recorder: JUAN LUIS GIL RN; Confirmation: Confirmed ; Classification: Medical ; Code: [id number] ; Contributor System: PowerChart ; Last Updated: 11/12/2014 10:12 EST ; Life Cycle Date: 11/12/2014 ; Life Cycle Status: Active ; Vocabulary: SNOMED CT Arthritis (SNOMED CT :9667265 ) Name of Problem: Arthritis ; Recorder: KENYON CHAMBERS RN; Confirmation: Confirmed ; Classification: Medical ; Code: [id number] ; Contributor System: PowerChart ; Last Updated: 04/10/2016 8:04 EDT ; Life Cycle Date: 08/13/2013 ; Life Cycle Status: Active ; Vocabulary: SNOMED CT Atrial fibrillation with RVR (SNOMED CT :3195525709 ) Name of Problem: Atrial fibrillation with RVR ; Recorder: SANG RICO APRN; Confirmation: Confirmed ; Classification: Medical ; Code: [id number] ; Contributor System: PowerChart ; Last Updated: 04/10/2016 8:05 EDT ; Life Cycle Date: 04/10/2016 ; Life Cycle Status: Active ; Responsible Provider: SANG RICO APRN; Vocabulary: SNOMED CT Blood clot (SNOMED CT :414336546 ) Name of Problem: Blood clot ; Recorder: KENYON CHAMBERS RN; Confirmation: Confirmed ; Classification: Patient Stated ; Code: [id number] ; Contributor System: PowerChart ; Last Updated: [...] Vocabulary: Patient Care Chest pain (SNOMED CT :24929446 ) Name of Problem: Chest pain ; Recorder: SANG RICO APRN; Confirmation: Complaint of ; Classification: Medical ; Code: 21753035 ; Contributor System: PowerChart ; Last Updated: 04/10/2016 8:05 EDT ; Life Cycle Status: Active ; Responsible Provider: SANG RICO APRN; Vocabulary: SNOMED CT Chronic anticoagulation (SNOMED CT :966941539 ) Name of Problem: Chronic anticoagulation ; Recorder: SANG RICO APRN; Confirmation: Confirmed ; Classification: Medical ; Code: 043296713 ; Contributor System: [employer]Chart ; Last Updated: 04/10/2016 8:05 EDT ; Life Cycle Date: 04/10/2016 ; Life Cycle Status: Active ; Responsible Provider: SANG RICO APRN; Vocabulary: SNOMED CT Clotting disorder (SNOMED CT :837892809 ) Name of Problem: Clotting disorder ; Recorder: KENYON CHAMBERS RN; Confirmation: Confirmed ; Classification: Patient Stated ; Code: 321489995 ; Contributor System: [employer] Launch Vent[employer]Chart ; Last Updated: 03/28/2014 19:29 EDT ; Life Cycle Date: 08/13/2013 ; Life Cycle Status: Active ; Vocabulary: SNOMED CT COPD (SNOMED CT :03457062 ) Name of Problem: COPD ; Recorder: KENYON CHAMBERS RN; Confirmation: Confirmed ; Classification: Medical ; Code: 89445396 ; Contributor System: [employer]Chart ; Last Updated: 04/10/2016 8:03 EDT ; Life Cycle Date: 08/13/2013 ; Life Cycle Status: Active ; Vocabulary: SNOMED CT Coronary artery disease (SNOMED CT :5473559043 ) Name of Problem: Coronary artery disease ; Recorder: KENYON CHAMBERS RN; Confirmation: Confirmed ; Classification: Medical ; Code: [id number] ; Contributor System: [employer]Chart ; Last Updated: 04/10/2016 8:03 EDT ; Life Cycle Date: 08/13/2013 ; Life Cycle Status: Active ; Vocabulary: SNOMED CT Diabetes mellitus (SNOMED CT :713623432 ) Name of Problem: Diabetes mellitus ; Recorder: KENYON CHAMBERS RN; Confirmation: Confirmed ; Classification: Medical ; Code: 220247781 ; Contributor System: [employer]Chart ; Last Updated: 04/10/2016 8:04 EDT ; Life Cycle Date: 08/13/2013 ; Life Cycle Status: Active ; Vocabulary: SNOMED CT Emphysema (SNOMED CT :260218187 ) Name of Problem: Emphysema ; Recorder: JUAN LUIS GIL RN; Confirmation: Confirmed ; Classification: Medical ; Code: 748262142 ; Contributor System: PowerChart ; Last Updated: 11/12/2014 10:11 EST ; Life Cycle Date: 11/12/2014 ; Life Cycle Status: Active ; Vocabulary: SNOMED CT GERD - Gastro-esophageal reflux disease (SNOMED CT :0543451673 ) Name of Problem: GERD - Gastro-esophageal reflux disease ; Recorder: KENYON CHAMBERS RN; Confirmation: Confirmed ; Classification: Medical ; Code: 0256721033 ; Contributor System: PowerChart ; Last Updated: [...] Patient Care High blood pressure (SNOMED CT :08550152 ) Name of Problem: High blood pressure ; Recorder: KENYON CHAMBERS RN; Confirmation: Confirmed ; Classification: Medical ; Code: 85984425 ; Contributor System: PowerChart ; Last Updated: 04/10/2016 8:03 EDT ; Life Cycle Date: 08/13/2013 ; Life Cycle Status: Active ; Vocabulary: SNOMED CT History of obstructive sleep apnea (IMO :01461555 ) Name of Problem: History of obstructive sleep apnea ; Recorder: SYSTEM, SYSTEM; Confirmation: Confirmed ; Classification: Medical ; Code: 13700094 ; Last Updated: 08/25/2020 18:21 EST ; Life Cycle Date: 08/25/2020 ; Life Cycle Status: Active ; Vocabulary: IMO Hx of pulmonary embolus (SNOMED CT :914402622 ) Name of Problem: Hx of pulmonary embolus ; Recorder: SANG RICO APRN; Confirmation: Confirmed ; Classification: Medical ; Code: 975066927 ; Contributor System: PowerChart ; Last Updated: 04/10/2016 8:05 EDT ; Life Cycle Date: 04/10/2016 ; Life Cycle Status: Active ; Responsible Provider: SANG RICO APRN; Vocabulary: SNOMED CT Hyperlipidemia (SNOMED CT :74959483 ) Name of Problem: Hyperlipidemia ; Recorder: KENYON CHAMBERS RN; Confirmation: Confirmed ; Classification: Medical ; Code: 84249370 ; Contributor System: [employer]Chart ; Last Updated: 04/10/2016 8:03 EDT ; Life Cycle Date: 08/13/2013 ; Life Cycle Status: Active ; Vocabulary: SNOMED CT Multiple renal cysts (SNOMED CT :164461898 ) Name of Problem: Multiple renal cysts ; Recorder: KENYON CHAMBERS RN; Confirmation: Confirmed ; Classification: Medical ; Code: 402672384 ; Contributor System: [employer]Chart ; Last Updated: 04/10/2016 8:04 EDT ; Life Cycle Date: 08/13/2013 ; Life Cycle Status: Active ; Vocabulary: SNOMED CT Stented coronary artery (SNOMED CT :0868641973 ) Name of Problem: Stented coronary artery ; Recorder: KENYON CHAMBERS RN; Confirmation: Confirmed ; Classification: Medical ; Code: 1566285409 ; Contributor System: [employer]Chart ; Last Updated: 04/10/2016 8:03 EDT ; Life Cycle Date: 08/13/2013 ; Life Cycle Status: Active ; Vocabulary: SNOMED CT Diagnoses(Active) Syncope/Near syncope Date: 03/16/2021 ; Diagnosis Type: Reason For Visit ; Confirmation: Complaint of ; Clinical Dx: Syncope/Near syncope ; Classification: Medical ; Clinical Service: Emergency medicine ; Code: PNED ; Probability: 0 ; Diagnosis Code: [id number] ED Height and Weight Height Source : [...] Body Mass Index : 28 kg/m2 ([place]) [place] Body Weight (IBW) : 52.02 kg NICOLE CHEN RN - 03/16/2021 11:32 EDT documented in this encounter Plan of Treatment Not on file documented as of this encounter Visit Diagnoses Not on filedocumented in this encounter Care Teams Manager Wind Relationship Specialty Start Date End Date Jay Howell MD [address] [place] [phone] PCP - General Emergency Medicine 11/12/23 documented as of this encounter
--- OUTSIDE RECORDS SUMMARY | 2025-07-24 06:50 | XMS_ITS | Encounter Summary ---
Author Organization [employer] ([place], [place], [place], [place]) Address [address] [place] [address] Care Team Providers Care Wall Man Name Role Phone Jay Howell MD Primary Care Provider [phone] Encounter Details Date Type Department Care Team (Late st Contact Info) Description 06/13/2020 Transcribed Document [facility] [place] Family Medicine [address] [place] [address] ProviderJessie MD [address] [place] [address] Social History Tobacco Use Types Packs/Day Years [...] 06/13/2020 2:31 EDT Electronically signed by Sivan [facility] Conversion Cost Estimating Clerk Cerner at 02/04/2023 2:19 PM CDT documented in this encounter Plan of Treatment Not on file documented as of this encounter Visit Diagnoses Not on filedocumented in this encounter Care Teams Wall Man Relationship Specialty Start Date End Date Jay Howell MD [address] [place] [phone] PCP - General Emergency Medicine 11/12/23 documented as of this encounter
--- OUTSIDE RECORDS SUMMARY | 2025-07-24 06:50 | XMS_ITS | Encounter Summary ---
Author Organization [employer] ([place], [place], [place], [place]) Address [address] [place] [address] Care Team Providers Care Accounting Support Specialist Name Role Phone Jay Howell MD Primary Care Provider [phone] Encounter Details Date Type Department Care Team (Late st Contact Info) Description 03/16/2021 Transcribed Document [facility] [place] Family Medicine [facility] [place] [address] ProviderJessie MD [address] [place] [address] [phone] Social History Tobacco Use Types Packs/Day Years [...] on filedocumented in this encounter Care Teams Accounting Support Specialist Relationship Specialty Start Date End Date Jay Howell MD [address] [place] [phone] PCP - General Emergency Medicine 11/12/23 documented as of this encounter
--- OUTSIDE RECORDS SUMMARY | 2025-07-24 06:50 | XMS_ITS | Encounter Summary ---
Author Organization [employer] ([place], [place], [place], [place]) Address [address] [place] [address] Care Team Providers Care Silk Soaker Name Role Phone Jay Howell MD Primary Care Provider [phone] Encounter Details Date Type Department Care Team (Late st Contact Info) Description 06/13/2020 Transcribed Document [facility] [place] Family Medicine [address] [place] [address] ProviderJessie MD [address] [place] [address] Social History Tobacco Use Types Packs/Day Years [...] Ms. Montoya reported she would call for dairy bar manager if/when she decides to complete one FARHANA PATEL - 06/13/2020 12:16 EDT Electronically signed by Gayle Finnegan Conversion Construction Services Technician Cerner at 02/04/2023 2:16 PM CDT documented in this encounter Plan of Treatment Not on file documented as of this encounter Visit Diagnoses Not on filedocumented in this encounter Care Teams Silk Soaker Relationship Specialty Start Date End Date Jay Howell MD [address] [place] [phone] PCP - General Emergency Medicine 11/12/23 documented as of this encounter
--- OUTSIDE RECORDS SUMMARY | 2025-07-24 06:50 | XMS_ITS | Encounter Summary ---
Author Organization [employer] ([place], [place], [place], [place]) Address [address] [place] [address] Care Team Providers Care Black Ash Burner Operator Name Role Phone Jay Howell MD Primary Care Provider [phone] Encounter Details Date Type Department Care Team (Late st Contact Info) Description 06/13/2020 Transcribed Document [facility] [place] [address] [place] [address] ProviderJessie MD [address] [place] [address] Social History Tobacco Use Types Packs/Day Years [...] Problem list: Medical Arthritis / SNOMED CT 9481280 / Confirmed Atrial fibrillation with RVR / SNOMED CT 9815140825 / Confirmed Cataract / Patient Care / Confirmed Chest pain / SNOMED CT 09439016 / Complaint of COPD / SNOMED CT 48502488 / Confirmed Coronary artery disease / SNOMED CT 0489224528 / Confirmed Diabetes mellitus / SNOMED CT 371319693 / Confirmed GERD - Gastro-esophageal reflux disease / SNOMED CT 3212240431 / Confirmed Glaucoma / Patient Care / Confirmed Chronic anticoagulation / SNOMED CT 293845398 / Confirmed Hx of pulmonary embolus / SNOMED CT 206064504 / Confirmed High blood pressure / SNOMED CT 71230555 / Confirmed History of obstructive sleep apnea / IMO 05430652 / Confirmed Hyperlipidemia / SNOMED CT 46747574 / Confirmed Multiple renal cysts / SNOMED CT 068116785 / Confirmed Emphysema / SNOMED CT 674217427 / Confirmed Apnea, sleep / SNOMED CT 769877032 / Confirmed Stented coronary artery / SNOMED CT 3281167587 / Confirmed UTI - Urinary tract infection / SNOMED CT 9892080135 / Confirmed, Active Problems (21) Apnea, sleep [...] time 36mins Electronically signed by Interface, [facility] Conversion Police Communications Operator Cerner at 02/04/2023 2:21 PM CDT documented in this encounter Plan of Treatment Not on file documented as of this encounter Visit Diagnoses Not on filedocumented in this encounter Care Teams Black Ash Burner Operator Relationship Specialty Start Date End Date Jay Howell MD [address] [place] [phone] PCP - General Emergency Medicine 11/12/23 documented as of this encounter
--- OUTSIDE RECORDS SUMMARY | 2025-07-24 06:50 | XMS_ITS | Encounter Summary ---
Author Organization [employer] ([place], [place], [place], [place]) Address [address] [place] [address] Care Team Providers Care Mold Setter Name Role Phone Jay Howell MD Primary Care Provider [phone] Encounter Details Date Type Department Care Team (Late st Contact Info) Description 06/13/2020 Transcribed Document [facility] [place] [address] [place] [address] ProviderJessie MD [address] [place] [address] Social History Tobacco Use Types Packs/Day Years [...] 06/13/2020 9:00 EDT by Joya Amaya [facility] Phone Call for Consults Consult Phone Call/Page Attempt : First call Consult Reason : chest pain Physician Requesting Consult : SMILEY ZAMORA MD Physician Requested for Consult : FREDY YAÑEZ MD-CAR Provider Service Notified Name : Cardiology Physician Covering for Consult : FREDY YAÑEZ MD-CAR Date and Time Call Returned : 06/13/2020 9:31 EDT Joya Amaya [facility] - 06/13/2020 10:00 EDT documented in this encounter Plan of Treatment Not on file documented as of this encounter Visit Diagnoses Not on filedocumented in this encounter Care Teams Mold Setter Relationship Specialty Start Date End Date Jay Howell MD [address] [place] [phone] PCP - General Emergency Medicine 11/12/23 documented as of this encounter
--- OUTSIDE RECORDS SUMMARY | 2025-07-24 06:50 | XMS_ITS | Encounter Summary ---
Author Organization [employer] ([place], [place], [place], [place]) Address [address] [place] [address] Care Team Providers Care Application Lead Name Role Phone Jay Howell MD Primary Care Provider [phone] Encounter Details Date Type Department Care Team (Late st Contact Info) Description 06/13/2020 Transcribed Document [facility] [place] Family Medicine [address] [place] [address] ProviderJessie MD [address] [place] [address] Social History Tobacco Use Types Packs/Day Years [...] filedocumented in this encounter Care Teams Application Lead Relationship Specialty Start Date End Date Sokan, Jay O, MD [address] [place] [phone] PCP - General Emergency Medicine 11/12/23 documented as of this encounter
--- OUTSIDE RECORDS SUMMARY | 2025-07-24 06:50 | XMS_ITS | Encounter Summary ---
Author Organization [employer] ([place], [place], [place], [place]) Address [address] [place] [address] Care Team Providers Care Furnace Charger Name Role Phone Jay Howell MD Primary Care Provider [phone] Encounter Details Date Type Department Care Team (Late st Contact Info) Description 06/13/2020 Transcribed Document [facility] [place] [facility] [place] [address] [place] [address] ProviderJessie MD [address] [place] [address] Social History Tobacco Use Types Packs/Day Years [...] Tobacco Cues : Verbalizes understanding Activities to [place] With Smoking Urges : Verbalizes understanding Basic [...] on filedocumented in this encounter Care Teams Furnace Charger Relationship Specialty Start Date End Date Jay Howell MD [address] [place] [phone] PCP - General Emergency Medicine 11/12/23 documented as of this encounter
--- OUTSIDE RECORDS SUMMARY | 2025-07-24 06:50 | XMS_ITS | Encounter Summary ---
Author Organization [employer] ([place], [place], [place], [place]) Address [address] [place] [address] Care Team Providers Care Timber Treating Tank Operator Name Role Phone Jay Howell MD Primary Care Provider [phone] Encounter Details Date Type Department Care Team (Late st Contact Info) Description 03/16/2021 Transcribed Document [facility] [place] [facility] [place] [address] ProviderJessie MD [address] [place], [place] [address]75[address] Social History Tobacco Use Types Packs/Day Years [...] Communication Barrier : None Primary Language : Moroccan Any Spiritual/Cultural Needs or Requests : No [...] WDL : WDL with exceptions (Comment: Dizziness 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, 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
--- OUTSIDE RECORDS SUMMARY | 2025-07-24 06:50 | XMS_ITS | Encounter Summary ---
Author Organization [email or web address] ([place], [place], [place], [place]) Address [address] [place] [address] Care Team Providers Care Museum Archivist Name Role Phone Jay Howell MD Primary Care Provider [phone] Encounter Details Date Type Department Care Team (Late st Contact Info) Description 06/13/2020 Transcribed Document [facility] [place] Family Medicine [address] [place] [address] ProviderJessie MD [address] [place] [address] Social History Tobacco Use Types Packs/Day Years [...] on filedocumented in this encounter Care Teams Museum Archivist Relationship Specialty Start Date End Date Jay Howell MD [address] [place] [phone] PCP - General Emergency Medicine 11/12/23 documented as of this encounter
--- OUTSIDE RECORDS SUMMARY | 2025-07-24 06:50 | XMS_ITS | Encounter Summary ---
Author Organization [employer] ([place], [place], [place], [place]) Address [address] [place] [address] Care Team Providers Care Drum Carrier Name Role Phone Jay Howell MD Primary Care Provider [phone] Encounter Details Date Type Department Care Team (Late st Contact Info) Description 06/13/2020 Transcribed Document [facility] [place] [address] [place] [address] ProviderJessie MD [address] [place] [address] Social History Tobacco Use Types Packs/Day Years [...] PharmD student Luis Manuel Briones PharmD, BCPS [phone] Electronically signed by [facility] Conversion Lithographic Artist Cerner at 02/04/2023 2:11 PM CDT documented in this encounter Plan of Treatment Not on file documented as of this encounter Visit Diagnoses Not on filedocumented in this encounter Care Teams Drum Carrier Relationship Specialty Start Date End Date Jay Howell MD [address] [place] [phone] PCP - General Emergency Medicine 11/12/23 documented as of this encounter
--- OUTSIDE RECORDS SUMMARY | 2025-07-24 06:50 | XMS_ITS | Encounter Summary ---
Author Organization [employer] ([place], [place], [place], [place]) Address [address] [place] [address] Care Team Providers Care Rotary Saw Operator Name Role Phone Jay Howell MD Primary Care Provider [phone] Encounter Details Date Type Department Care Team (Late st Contact Info) Description 03/16/2021 Transcribed Document [facility] [place] [address] [place] [address] ProviderJessie MD [address] [place], [place] [address] Social History Tobacco Use Types Packs/Day Years [...] X1 Electronically signed by Gayle Finnegan Conversion Professor Of Business Administration Cerner at 02/04/2023 2:00 PM CDT documented in this encounter Plan of Treatment Not on file documented as of this encounter Visit Diagnoses Not on filedocumented in this encounter Care Teams Rotary Saw Operator Relationship Specialty Start Date End Date Jay Howell MD [address] [place] [phone] PCP - General Emergency Medicine 11/12/23 documented as of this encounter
--- OUTSIDE RECORDS SUMMARY | 2025-07-24 06:50 | XMS_ITS | Encounter Summary ---
Author Organization [employer] ([place], [place], [place], [place]) Address [address] [place] [address] Care Team Providers Care Geospatial Program Management Officer Name Role Phone Jay Howell MD Primary Care Provider [phone] Encounter Details Date Type Department Care Team (Late st Contact Info) Description 12/21/2018 Transcribed Document [facility] [place] [address] [place] [address] ProviderJessie MD [address] [place] [address] Social History Tobacco Use Types Packs/Day Years Used Date Smoking Tobacco: Never Assessed Comments Unknown Sex and Gender Information Value Date Recorded Sex Assigned at Not on file Legal Sex Female 7:30 PM CDT Gender Identity Not on file Sexual Orientation Not on file documented as of this encounter Miscellaneous Notes * Cerner Conversion Note - Jessie Yuen MD - 12/21/2018 11:50 AM SAFETY PATROL OFFICER Patient Education Materials Follows: Groin Site Care [...] 11/05/2011 Document Revised: 12/25/2012 Document Reviewed: 11/05/2011 [employer]? Patient Information ?2014 [employer]. Cardiovascular Coronary Artery Disease, Female Coronary artery [...] can cause a heart attack (myocardial infarction, ID). CAD is a leading cause of for [...] 12/25/2012 Document Revised: 03/10/2017 Document Reviewed: 02/04/2015 [employer] Interactive Patient Education ? 2017 [employer]. Nutrition Heart-Healthy Eating Plan Introduction Heart-healthy meal [...] What foods can I eat? GrainsBreads, including German, white, jie, wheat, raisin, rye, oatmeal, and Trinidadian. Tortillas that are neither fried nor made with lard or trans fat. Low-fat rolls, including hotdog and hamburger buns and Chilean muffins. Biscuits. Muffins. Waffles. Pancakes. Light popcorn. [...] cottage cheese. Whole-milk cheeses, including blue (fredo), [facility] Arm[place], Brie, Nate, Mosotho, Havarti, Tuvaluan, cheddar, Camembert, and Boling. Whole or 2% milk that is liquid, [...] that has suet, meat fat, or shortening. Sinclair butter, hydrogenated oils, palm oil, coconut oil, [...] including vitamins, herbs, eye drops, creams, and rlbb-wco-rctszlm medicines. ??? Any problems you or family [...] 03/06/2014 Else[employer] Interactive Patient Education ? 2017 [employer] documented in this encounter Plan of Treatment Not on file documented as of this encounter Visit Diagnoses Not on filedocumented in this encounter Care Teams Geospatial Program Management Officer Relationship Specialty Start Date End Date Jay Howell MD [address] [place] [phone] PCP - General Emergency Medicine 11/12/23 documented as of this encounter
--- OUTSIDE RECORDS SUMMARY | 2025-07-24 06:52 | XMS_ITS | Clinical Summary ---
Author Organization 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 Active Calcium Carbonate (ANTACID ULTRA STRENGTH) 400 mg calcium (1,000 mg) Oral Tablet, Chewable Take 1,000 mg by mouth daily. Active cyanocobalami n 1,000 mcg Oral Tablet Take 1,000 mcg by mouth daily. Active polyethylene glycol (GLYCOLAX, MIRALAX) 17 gram Oral Powder in Packet Take 17 g by mouth daily. Active ranolazine (RANEXA) 500 mg Oral Tablet Sustained Release 12 hr Take 1,000 mg by mouth daily. 019 Active atorvastatin (LIPITOR) 40 mg Oral Tablet Take 40 mg by mouth nightly. Active nalOXone (NARCAN) 4 mg/actuation Nasl [place], Non-Aerosol 0.1 mL by Nasal route as needed for Opioid Reversal. [place] the contents of one device (0.1mL) into one nostril upon signs of opioid overdose. Call 911. May repeat dose in other nostril if no response within 2-3 minutes. 1 Each Active pantoprazole (PROTONIX) 40 mg Oral Tablet, Delayed Release (E.C.) Take 1 Tablet by mouth 2 times daily. 60 Tablet Active nortriptyline (PAMELOR) 10 mg Oral Capsule Take 1 Capsule by mouth nightly. 15 Capsule Active latanoprost (XALATAN) 0.005 % Opht Drops Apply 1 Drop to eye nightly. 2.5 mL Active lidocaine (ASPERCREME) 4 % Top Adhesive Patch, Medicated Place 1 Patch onto the skin daily. 15 Patch Active dorzolamide-t imoloL (COSOPT) 22.3-6.8 mg/mL Opht Drops Place 1 Drop into both eyes nightly. instill 1 drop in both eyes at bedtime for glaucoma Active fUROsemide (LASIX) 40 mg Oral Tablet Take 1 Tablet by mouth daily for 30 days. 30 Tablet 2024 Active levETIRAcetam (KEPPRA) 750 mg Oral Tablet Take 1 Tablet by mouth 2 times daily for 30 days. 60 Tablet 2024 Active losartan (COZAAR) 25 mg Oral Tablet Take 1 Tablet by mouth daily for 30 days. 30 Tablet 2024 Active metoprolol (LOPRESSOR) 25 mg Oral Tablet Take 1 Tablet by mouth 2 times daily for 30 days. 60 Tablet 2024 Active carvediloL (COREG) 25 mg Oral Tablet Take 1 Tablet by mouth 2 times daily (with meals). 60 Tablet 2024 Discontinued(S top Taking at Discharge) fUROsemide (LASIX) 40 mg Oral Tablet Take 1 Tablet by mouth daily as needed for Other (edema, SOB). 30 Tablet 2024 Discontinued(S top Taking at Discharge) oxyCODONE (ROXICODONE) 5 mg Oral Tablet Take 1-2 Tablets by mouth every 4 hours as needed for Acute Pain (R52). 12 Tablet 025 2024 Discontinued ertapenem sodium (ERTAPENEM INJ) Inject 1 g into the muscle daily. Ertapenem sodium injection solution reconstituted 1gm, inject 1 gm intramuscularly one time a day for UTI for seven days 2024 Discontinued(S top Taking at Discharge) gabapentin (NEURONTIN) 300 mg Oral Capsule Take 300 mg by mouth daily. Give 1 capsule by mouth one time a day for POLYNEUROPATHY 2024 Discontinued(S top Taking at Discharge) ALPRAZolam (XANAX) 0.5 mg Oral TabletIndicat ions:anxiety Take 0.5 mg by mouth nightly. give one tablet by mouth one time a day for anxiety disorder, unspecified Indications: anxious 2024 Discontinued(S top Taking at Discharge) gabapentin (NEURONTIN) 300 mg Oral Capsule Take 1 Capsule by mouth 3 times daily for 3 days. 9 Capsule 025 2024 oxyCODONE (ROXICODONE) 5 mg Oral Tablet Take 1-2 Tablets by mouth every 4 hours as needed for Acute Pain (R52) for up to 3 days. 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 Completed zosyn Assessment & Plan (06/09/2025 11:10 AM EDT): - ESBL producing proteus on cx. Completed zosyn Assessment & Plan (06/08/2025 11:33 AM EDT): - ESBL producing proteus on cx. Completed zosyn Assessment & Plan (06/07/2025 12:27 PM EDT): - ESBL producing proteus on cx. Completed zosyn Assessment & Plan (06/06/2025 3:47 PM EDT): - ESBL producing proteus on cx. Completed zosyn Assessment & Plan (06/05/2025 12:46 PM EDT): - ESBL producing proteus on cx. Completed zosyn Assessment & Plan (06/04/2025 1:59 PM EDT): - ESBL producing proteus on cx. Completed zosyn Assessment & Plan (06/03/2025 7:22 AM EDT): - ESBL producing proteus on cx. Completed zosyn Assessment & Plan (06/02/2025 9:53 AM EDT): - ESBL producing proteus on cx. On zosyn - completing today Assessment & Plan (06/01/2025 9:51 AM EDT): - ESBL producing proteus on cx. On zosyn - complete 7 days tomorrow Assessment & Plan (05/31/2025 8:02 AM EDT): - ESBL producing proteus on cx. On zosyn - complete 7 days Assessment & Plan (05/30/2025 11:39 AM EDT): - ESBL producing proteus on cx. On zosyn - complete 7 days Assessment & Plan (05/29/2025 11:24 AM EDT): - proteus on cx. On zosyn Assessment & Plan (05/28/2025 8:08 AM EDT): - proteus on cx. On zosyn Metabolic encephalopathy 05/27/2025 Assessment & Plan (06/10/2025 5:51 PM EDT): resolved Assessment & Plan (06/09/2025 11:10 AM EDT): resolved Assessment & Plan (06/08/2025 11:33 AM EDT): resolved Assessment & Plan (06/07/2025 12:27 PM EDT): resolved Assessment & Plan (06/06/2025 3:47 PM EDT): resolved Assessment & Plan (06/05/2025 12:46 PM EDT): resolved Assessment & Plan (06/04/2025 1:59 PM EDT): resolved Assessment & Plan (06/03/2025 7:21 AM EDT): - continues to improve Assessment & Plan (06/02/2025 9:53 AM EDT): - continues to improve Assessment & Plan (06/01/2025 9:51 AM EDT): - continues to improve Assessment & Plan (05/31/2025 8:02 AM EDT): - continues to improve Assessment & Plan (05/30/2025 11:39 AM EDT): - improving today - improved today Assessment & Plan (05/29/2025 11:24 AM EDT): - improving today - follow with increase in pain meds Assessment & Plan (05/28/2025 8:08 AM EDT): - improving today - will add back some of her home meds that could have contributed Assessment & Plan (05/27/2025 9:42 AM EDT): - improving today Acute respiratory failure with hypoxemia 025 Assessment & Plan (06/10/2025 5:51 PM EDT): [facility] with hypotension and hypoxia - pulm edema on cxr - echo with EF 55-60%, indeterminate diastolic function, pulm pressure 41 mmHg - diuresis Assessment & Plan (06/09/2025 11:10 AM EDT): - transferred to MICU 8/ with hypotension and hypoxia - pulm edema on cxr - echo with EF 55-60%, indeterminate diastolic function, pulm pressure 41 mmHg - diuresis Assessment & Plan (06/08/2025 11:33 AM EDT): - [facility]/ with hypotension and hypoxia - pulm edema on cxr - echo with EF 55-60%, indeterminate diastolic function, pulm pressure 41 mmHg - diuresis Assessment & Plan (06/07/2025 12:27 PM EDT): - [facility]/ with hypotension and hypoxia - pulm edema on cxr - echo with EF 55-60%, indeterminate diastolic function, pulm pressure 41 mmHg - diuresis Assessment & Plan (06/06/2025 3:47 PM EDT): - [facility]/ with hypotension and hypoxia - pulm edema on cxr - echo with EF 55-60%, indeterminate diastolic function, pulm pressure 41 mmHg - diuresis Assessment & Plan (06/05/2025 12:46 PM EDT): - [facility]/ with hypotension and hypoxia - pulm edema on cxr - echo with EF 55-60%, indeterminate diastolic function, pulm pressure 41 mmHg - diuresis Assessment & Plan (06/04/2025 1:59 PM EDT): - transferred to MICU 8/ with hypotension and hypoxia - pulm edema on cxr - echo with EF 55-60%, indeterminate diastolic function, pulm pressure 41 mmHg - diuresis Assessment & Plan (06/03/2025 7:21 AM EDT): - [facility]/ with hypotension and hypoxia - pulm edema on cxr - echo with EF 55-60%, indeterminate diastolic function, pulm pressure 41 mmHg - diurese as below Assessment & Plan (06/02/2025 9:53 AM EDT): - [facility]/ with hypotension and hypoxia - pulm edema on cxr - echo with EF 55-60%, indeterminate diastolic function, pulm pressure 41 mmHg - diurese as below Assessment & Plan (06/01/2025 9:51 AM EDT): - transferred to [facility] 8/ with hypotension and hypoxia - pulm edema on cxr - echo with EF 55-60%, indeterminate diastolic function, pulm pressure 41 mmHg - limited diuresis due to below - on RA now Assessment & Plan (05/31/2025 8:02 AM EDT): - transferred to [facility] 8/ with hypotension and hypoxia - pulm edema on cxr - echo with EF 55-60%, indeterminate diastolic function, pulm pressure 41 mmHg - limited diuresis due to below - remains on 2L now Assessment & Plan (05/30/2025 11:39 AM EDT): - [facility] with hypotension and hypoxia - pulm edema on cxr - echo with EF 55-60%, indeterminate diastolic function, pulm pressure 41 mmHg - limited diuresis due to below - satting well now on 2L Assessment & Plan (05/29/2025 11:24 AM EDT): - transferred to [facility] 8/ with hypotension and hypoxia - pulm edema on cxr - echo with EF 55-60%, indeterminate diastolic function, pulm pressure 41 mmHg - limited diuresis due to below - satting well now on 2L Assessment & Plan (05/28/2025 8:08 AM EDT): - transferred to MICU 05/26 with hypotension and hypoxia - pulm edema on cxr - echo with EF 55-60%, indeterminate diastolic function, pulm pressure 41 mmHg - limited diuresis due to below - satting well now on 2L Assessment & Plan (05/27/2025 9:42 AM EDT): - transferred to MICU yesterday with hypotension and hypoxia - pulm edema on cxr - echo pending - limited diuresis due to below - satting well now on 2L Acute pulmonary edema 05/26/2025 Assessment & Plan (06/23/2025 4:38 PM EDT): Lasix given in ER > Continue q 12 hr -Trest A fib RVR -Recent Echo reviewed -Follow Assessment & Plan (06/10/2025 5:51 PM EDT): - transferred to MICU 05/26 with hypotension and hypoxia - pulm edema on cxr - echo with EF 55-60%, indeterminate diastolic function, pulm pressure 41 mmHg - diuresis Assessment & Plan (06/09/2025 11:10 AM EDT): - transferred to MICU 05/26 with hypotension and hypoxia - pulm edema on cxr - echo with EF 55-60%, indeterminate diastolic function, pulm pressure 41 mmHg - diuresis Assessment & Plan (06/08/2025 11:33 AM EDT): - transferred to MICU 05/26 with hypotension and hypoxia - pulm edema on cxr - echo with EF 55-60%, indeterminate diastolic function, pulm pressure 41 mmHg - diuresis Assessment & Plan (06/07/2025 12:27 PM EDT): - transferred to MICU 05/26 with hypotension and hypoxia - pulm edema on cxr - echo with EF 55-60%, indeterminate diastolic function, pulm pressure 41 mmHg - diuresis Assessment & Plan (06/06/2025 3:47 PM EDT): - [facility] with hypotension and hypoxia - pulm edema on cxr - echo with EF 55-60%, indeterminate diastolic function, pulm pressure 41 mmHg - diuresis Assessment & Plan (06/05/2025 12:46 PM EDT): - transferred to MICU 8/ with hypotension and hypoxia - pulm edema on cxr - echo with EF 55-60%, indeterminate diastolic function, pulm pressure 41 mmHg - diuresis Assessment & Plan (06/04/2025 1:59 PM EDT): - transferred to MICU 8/ with hypotension and hypoxia - pulm edema on cxr - echo with EF 55-60%, indeterminate diastolic function, pulm pressure 41 mmHg - diuresis Assessment & Plan (06/03/2025 7:21 AM EDT): - [facility]/ with hypotension and hypoxia - pulm edema on cxr - echo with EF 55-60%, indeterminate diastolic function, pulm pressure 41 mmHg - diurese as below Assessment & Plan (06/02/2025 9:53 AM EDT): - [facility] with hypotension and hypoxia - pulm edema on cxr - echo with EF 55-60%, indeterminate diastolic function, pulm pressure 41 mmHg - diurese as below Assessment & Plan (06/01/2025 9:51 AM EDT): - [facility]/ with hypotension and hypoxia - pulm edema on cxr - echo with EF 55-60%, indeterminate diastolic function, pulm pressure 41 mmHg - limited diuresis due to below - on RA now Assessment & Plan (05/31/2025 8:02 AM EDT): - [facility]/ with hypotension and hypoxia - pulm edema on cxr - echo with EF 55-60%, indeterminate diastolic function, pulm pressure 41 mmHg - limited diuresis due to below - remains on 2L now Assessment & Plan (05/30/2025 11:39 AM EDT): - transferred to MICU 05/26 with hypotension and hypoxia - pulm edema on cxr - echo with EF 55-60%, indeterminate diastolic function, pulm pressure 41 mmHg - limited diuresis due to below - satting well now on 2L Assessment & Plan (05/29/2025 11:24 AM EDT): - transferred to MICU 05/26 with hypotension and hypoxia - pulm edema on cxr - echo with EF 55-60%, indeterminate diastolic function, pulm pressure 41 mmHg - limited diuresis due to below - satting well now on 2L Assessment & Plan (05/28/2025 8:08 AM EDT): - transferred to MICU 05/26 with hypotension and hypoxia - pulm edema on cxr - echo with EF 55-60%, indeterminate diastolic function, pulm pressure 41 mmHg - limited diuresis due to below - satting well now on 2L Assessment & Plan (05/27/2025 9:42 AM EDT): - transferred to MICU yesterday with hypotension and hypoxia - pulm edema on cxr - echo pending - limited diuresis due to below - satting well now on 2L Hypotension 05/26/2025 Assessment & Plan (06/10/2025 5:51 PM EDT): resolved Assessment & Plan (06/03/2025 7:21 AM EDT): - required transfer to ICU - cortisol equivocal but stim ok - improved. Assessment & Plan (06/02/2025 9:53 AM EDT): - required transfer to ICU - cortisol equivocal but stim ok - improved. Assessment & Plan (06/01/2025 9:51 AM EDT): - required transfer to ICU - cortisol equivocal but stim ok - improved. Assessment & Plan (05/31/2025 8:02 AM EDT): - required transfer to ICU - cortisol equivocal but stim ok - improved. Assessment & Plan (05/30/2025 11:39 AM EDT): - required transfer to ICU - cortisol equivocal but stim ok - improved. Assessment & Plan (05/29/2025 11:24 AM EDT): - cortisol equivocal but stim ok - improved. Assessment & Plan (05/28/2025 8:08 AM EDT): - cortisol equivocal but stim ok - improved. Assessment & Plan (05/27/2025 9:42 AM EDT): - cortisol equivocal but stim ok - improved. Pancytopenia 05/21/2025 Assessment & Plan (06/03/2025 7:21 AM EDT): - b12, folate, iron ok. Trasferrin down - follow trend Assessment & Plan (06/02/2025 9:53 AM EDT): - b12, folate, iron ok. Trasferrin down - follow trend Assessment & Plan (06/01/2025 9:51 AM EDT): - b12, folate, iron ok. Trasferrin down - follow trend Assessment & Plan (05/31/2025 8:02 AM EDT): - b12, folate, iron ok. Trasferrin down - follow trend Assessment & Plan (05/30/2025 11:39 AM EDT): - b12, folate, iron ok. Trasferrin down - follow trend Assessment & Plan (05/29/2025 11:24 AM EDT): - b12, folate, iron ok. Trasferrin down - hgb down some this am. Repeat this afternoon Assessment & Plan (05/28/2025 8:08 AM EDT): - low but stable - b12, folate, iron ok. Trasferrin down - hgb trending down again. No obvious bleeding - follow trend Assessment & Plan (05/27/2025 9:42 AM EDT): - low but stable - b12, folate, iron ok. Trasferrin down - INR up just a little. Smear ok Assessment & Plan (05/26/2025 9:50 AM EDT): - low but stable - b12, folate, iron ok. Trasferrin down - INR up just a little. Smear ok Assessment & Plan (05/25/2025 10:33 AM EDT): - low but stable - b12, folate, iron ok. Trasferrin down - INR up just a little. Smear ok Assessment & Plan (05/24/2025 7:56 AM EDT): - low but stable - b12, folate, iron ok. Trasferrin down - INR up just a little. Smear ok Assessment & Plan (05/23/2025 11:46 AM EDT): - low but stable - b12, folate, iron ok. Trasferrin down - INR up just a little. Smear ok Assessment & Plan (05/22/2025 10:29 AM EDT): - low but stable - b12, folate, iron ok. Trasferrin down - INR up just a little. Smear pending Assessment & Plan (05/21/2025 1:15 PM EDT): - low but stable - b12, folate, iron ok. Trasferrin down - check smear, INR Palliative care by specialist 05/13/2025 Goals of care, counseling/discussion 05/13/2025 Assessment & Plan (05/19/2025 11:25 AM EDT): Palliative Care on boad Assessment & Plan (05/18/2025 8:38 AM EDT): Palliative Care on boad Assessment & Plan (05/17/2025 9:16 AM EDT): Palliative Care on boad Assessment & Plan (05/16/2025 2:50 PM EDT): Palliative Care on boad Assessment & Plan (05/15/2025 2:22 PM EDT): Palliative Care on boad Assessment & Plan (05/14/2025 2:51 PM EDT): Palliative Care on boad Wound dehiscence 05/01/2025 Assessment & Plan (05/20/2025 12:54 PM EDT): Continue to monitor Cont neurontin 400TID Increased oxycodone 10>15mg dose, improved sx Assessment & Plan (05/19/2025 11:25 AM EDT): Continue to monitor Cont neurontin 400TID Increased oxycodone 10>15mg dose, improved sx Assessment & Plan (05/18/2025 8:38 AM EDT): Continue to monitor Cont neurontin 400TID Increased oxycodone 10>15mg dose, improved sx Assessment & Plan (05/17/2025 1:37 PM EDT): Continue to monitor Cont neurontin 400TID Increased oxycodone 10>15mg dose, improved sx Assessment & Plan (05/16/2025 2:50 PM EDT): Continue to monitor Cont neurontin 400TID Increased oxycodone 10>15mg dose, improved Assessment & Plan (05/15/2025 2:22 PM EDT): Continue to monitor Increased neurontin 300TID ->400TID Increase oxycodone 10>15mg dose Assessment & Plan (05/14/2025 10:10 AM EDT): Continue to monitor Assessment & Plan (05/13/2025 9:08 AM EDT): Continue to monitor Assessment & Plan (05/12/2025 10:17 AM EDT): Continue to monitor Assessment & Plan (05/11/2025 7:12 AM EDT): Continue to monitor Assessment & Plan (05/10/2025 1:54 PM EDT): Continue to monitor Assessment & Plan (05/09/2025 7:00 AM EDT): Continue to monitor Assessment & Plan (05/08/2025 1:05 PM EDT): Continue to monitor 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 Complication of foot amputation stump 03/23/2025 Diabetic foot infection 03/23/2025 Assessment & Plan (06/10/2025 5:51 PM EDT): - Wound dehiscence over previous left TMA [...] multimodality pain meds for phantom pain control) Assessment & Plan (06/09/2025 11:10 AM EDT): - Wound dehiscence over previous left TMA [...] encephalopathy, adjusting meds on real time basis Assessment & Plan (06/08/2025 11:33 AM EDT): - Wound dehiscence over previous left TMA [...] encephalopathy, adjusting meds on real time basis Assessment & Plan (06/07/2025 12:27 PM EDT): - Wound dehiscence over previous left TMA [...] encephalopathy, adjusting meds on real time basis Assessment & Plan (06/06/2025 3:47 PM EDT): - Wound dehiscence over previous left TMA [...] encephalopathy, adjusting meds on real time basis Assessment & Plan (06/05/2025 12:46 PM EDT): - Wound dehiscence over previous left TMA [...] encephalopathy, adjusting meds on real time basis Assessment & Plan (06/04/2025 1:59 PM EDT): - Wound dehiscence over previous left TMA [...] 8/8 - pain controlled on oral meds Assessment & Plan (06/03/2025 7:21 AM EDT): - Wound dehiscence over previous left TMA [...] 8/8 - pain controlled on oral meds Assessment & Plan (06/02/2025 9:53 AM EDT): - Wound dehiscence over previous left TMA [...] day now. Last morphine early yesterday morning Assessment & Plan (06/01/2025 9:51 AM EDT): - Wound dehiscence over previous left TMA site. ESR, CRP normal. WBC wnl. Afebrile. No acute infection. Not on abx - podiatry saw - vascular following - MRI L foot 7/18 with mild marrow edema of metatarsal distal stump margins without evidence of osteomyelitis - Angiogram performed, minimal blood flow past the knee, recommended AKA - s/p AKA 8/8 - pain improving Assessment & Plan (05/31/2025 8:02 AM EDT): - Wound dehiscence over previous left TMA site. ESR, CRP normal. WBC wnl. Afebrile. No acute infection. Not on abx - podiatry saw - vascular following - MRI L foot 7/18 with mild marrow edema of metatarsal distal stump margins without evidence of osteomyelitis - Angiogram performed, minimal blood flow past the knee, recommended AKA - s/p AKA 8/8 - pain improving Assessment & Plan (05/30/2025 11:39 AM EDT): - Wound dehiscence over previous left TMA site. ESR, CRP normal. WBC wnl. Afebrile. No acute infection. Not on abx - podiatry saw - vascular following - MRI L foot 7/18 with mild marrow edema of metatarsal distal stump margins without evidence of osteomyelitis - Angiogram performed, minimal blood flow past the knee, recommended AKA - s/p AKA 8/8 - issues with pain appear to be improving. Continue same regimen today Assessment & Plan (05/29/2025 11:24 AM EDT): - Wound dehiscence over previous left TMA [...] pain remains an issue. No better with HOSPITALIST PROGRAM DIRECTOR. Will stop that and adjust prns Assessment & Plan (05/28/2025 8:08 AM EDT): - Wound dehiscence over previous left TMA [...] issue. Will adjust meds as BP better. Assessment & Plan (05/27/2025 9:42 AM EDT): - Wound dehiscence over previous left TMA site. ESR, CRP normal. WBC wnl. Afebrile. No acute infection. Not on abx - podiatry saw - vascular following - MRI L foot 7/18 with mild marrow edema of metatarsal distal stump margins without evidence of osteomyelitis - Angiogram performed, minimal blood flow past the knee, recommend edAKA - s/p AKA 8 - pain remains an issue. Assessment & Plan (05/26/2025 9:50 AM EDT): - Wound dehiscence over previous left TMA site. ESR, CRP normal. WBC wnl. Afebrile. No acute infection. Not on abx - podiatry saw - vascular following - MRI L foot 7/18 with mild marrow edema of metatarsal distal stump margins without evidence of osteomyelitis - Angiogram performed, minimal blood flow past the knee, recommend edAKA - s/p AKA 8 - some pain issues Assessment & Plan (05/25/2025 10:33 AM EDT): - Wound dehiscence over previous left TMA site. ESR, CRP normal. WBC wnl. Afebrile. No acute infection. Not on abx - podiatry saw - vascular following - MRI L foot 7/18 with mild marrow edema of metatarsal distal stump margins without evidence of osteomyelitis - Angiogram performed, minimal blood flow past the knee, recommend AKA - s/p AKA yesterday Assessment & Plan (05/24/2025 7:56 AM EDT): - Wound dehiscence over previous left TMA site. ESR, CRP normal. WBC wnl. Afebrile. No acute infection. Not on abx - podiatry saw - vascular following - MRI L foot 7/18 with mild marrow edema of metatarsal distal stump margins without evidence of osteomyelitis - Angiogram performed, minimal blood flow past the knee, recommend AKA - planning AKA today Assessment & Plan (05/23/2025 11:46 AM EDT): - Wound dehiscence over previous left TMA [...] and cons. Currently, she is in agreement. Assessment & Plan (05/22/2025 10:29 AM EDT): - Wound dehiscence over previous left TMA site. ESR, CRP normal. WBC wnl. Afebrile. No acute infection. Not on abx - podiatry saw - vascular following - MRI L foot 7/18 with mild marrow edema of metatarsal distal stump margins without evidence of osteomyelitis - Angiogram performed, minimal blood flow past the knee, recommend AKA - planning 05/24 Assessment & Plan (05/21/2025 1:15 PM EDT): - Wound dehiscence over previous left TMA site. ESR, CRP normal. WBC wnl. Afebrile. No acute infection. Not on abx - podiatry saw - vascular following - MRI L foot 7/18 with mild marrow edema of metatarsal distal stump margins without evidence of osteomyelitis - Angiogram performed, minimal blood flow past the knee, recommend AKA - now planned 05/24 Assessment & Plan (05/20/2025 12:54 PM EDT): Wound dehiscence over previous left TMA site. [...] to have AKA tomorrow , d/w vascular Assessment & Plan (05/19/2025 3:11 PM EDT): Wound dehiscence over previous left TMA site. [...] to AKA, pt states will happen 05/24 Assessment & Plan (05/18/2025 8:38 AM EDT): Wound dehiscence over previous left TMA site. [...] surgery as pt now agreeable to AKA Assessment & Plan (05/17/2025 9:16 AM EDT): Wound dehiscence over previous left TMA site. [...] surgery as pt now agreeable to AKA Assessment & Plan (05/16/2025 2:50 PM EDT): Wound dehiscence over previous left TMA site. [...] surgery as pt now agreeable to AKA Assessment & Plan (05/15/2025 2:22 PM EDT): Wound dehiscence over previous left TMA site. ESR, CRP normal. WBC wnl. Afebrile. No acute infection. - podiatry consulted - vascular consulted - MRI L foot 7/18 with mild marrow edema of metatarsal distal stump margins without evidence of osteomyelitis - Angiogram performed, minimal blood flow past the knee, recommend AKA but pt declining -Pain control ongonig ; increase neuronting today Assessment & Plan (05/14/2025 2:51 PM EDT): Wound dehiscence over previous left TMA site. ESR, CRP normal. WBC wnl. Afebrile. No acute infection. - podiatry consulted - vascular consulted - MRI L foot 7/18 with mild marrow edema of metatarsal distal stump margins without evidence of osteomyelitis - Angiogram performed, minimal blood flow past the knee, recommend AKA but pt declining -Pain control ongonig ; increase neuronting today Assessment & Plan (05/13/2025 1:41 PM EDT): Wound dehiscence over previous left TMA site. ESR, CRP normal. WBC wnl. Afebrile. No acute infection. - podiatry consulted - vascular consulted - MRI L foot 7/18 with mild marrow edema of metatarsal distal stump margins without evidence of osteomyelitis - Angiogram performed, minimal blood flow past the knee, recommend AKA - Patient discussed with vascular surgery and now will undergo AKA Assessment & Plan (05/12/2025 10:17 AM EDT): Wound dehiscence over previous left TMA site. ESR, CRP normal. WBC wnl. Afebrile. No acute infection. - podiatry consulted - vascular consulted - MRI L foot 7/18 with mild marrow edema of metatarsal distal stump margins without evidence of osteomyelitis - Angiogram performed, minimal blood flow past the knee, recommend AKA -Patient currently refusing AKA, only BKA -Will discuss with family Assessment & Plan (05/11/2025 11:59 AM EDT): Wound dehiscence over previous left TMA site. ESR, CRP normal. WBC wnl. Afebrile. No acute infection. - podiatry consulted - vascular consulted - MRI L foot 7/18 with mild marrow edema of metatarsal distal stump margins without evidence of osteomyelitis - Angiogram performed, minimal blood flow past the knee, recommend AKA -Patient currently refusing AKA, only BKA -Will discuss with family Assessment & Plan (05/10/2025 1:54 PM EDT): Wound dehiscence over previous left TMA site. [...] foot - no abx at this time Assessment & Plan (05/09/2025 7:00 AM EDT): Wound dehiscence over previous left TMA site. [...] foot - no abx at this time Assessment & Plan (05/08/2025 1:05 PM EDT): Wound dehiscence over previous left TMA site. [...] foot - no abx at this time Assessment & Plan (05/07/2025 2:02 PM EDT): Wound dehiscence over previous left TMA site. [...] foot - no abx at this time Assessment & Plan (05/06/2025 9:31 AM EDT): Wound dehiscence over previous left TMA site. [...] foot - no abx at this time Assessment & Plan (05/05/2025 1:00 PM EDT): Wound dehiscence over previous left TMA site. [...] foot - no abx at this time Assessment & Plan (05/04/2025 12:51 PM EDT): Wound dehiscence over previous left TMA site. [...] foot - no abx at this time Assessment & Plan (05/03/2025 6:33 PM EDT): Wound dehiscence over previous left TMA site ESR, CRP normal WBC not elevated, afebrile 05/03/2025 Discussed with podiatry MD, plan for MRI Hold abx Assessment & Plan (05/02/2025 5:52 PM EDT): Wound dehiscence over previous left TMA site ESR, CRP normal WBC not elevated 05/02/2025 Podiatry: plan pending vascular studies Hold abx Assessment & Plan (05/01/2025 5:56 PM EDT): Wound dehiscence over previous left TMA site ESR, CRP, WBC not elevated Podiatry: does not appear infected Hold abx Assessment & Plan (04/30/2025 8:21 PM EDT): Wound dehiscence over previous left TMA site Vancomycin, cefepime, Flagyl Podiatry consult n.p.o. 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) Assessment & Plan (06/09/2025 11:10 AM EDT): - Wound dehiscence over previous left TMA [...] encephalopathy, adjusting meds on real time basis Assessment & Plan (06/08/2025 11:33 AM EDT): - Wound dehiscence over previous left TMA [...] encephalopathy, adjusting meds on real time basis Assessment & Plan (06/07/2025 12:27 PM EDT): - Wound dehiscence over previous left TMA [...] encephalopathy, adjusting meds on real time basis Assessment & Plan (06/06/2025 3:47 PM EDT): - Wound dehiscence over previous left TMA [...] encephalopathy, adjusting meds on real time basis Assessment & Plan (06/05/2025 12:46 PM EDT): - Wound dehiscence over previous left TMA [...] encephalopathy, adjusting meds on real time basis Assessment & Plan (06/04/2025 1:59 PM EDT): - Wound dehiscence over previous left TMA site. ESR, CRP normal. WBC wnl. Afebrile. No acute infection. Not on abx - podiatry saw - vascular following - MRI L foot 7/ with mild marrow edema of metatarsal distal stump margins without evidence of osteomyelitis - Angiogram performed, minimal blood flow past the knee, recommended AKA - s/p AKA 8/8 - pain controlled on oral meds Assessment & Plan (06/03/2025 7:21 AM EDT): - Wound dehiscence over previous left TMA [...] 8/8 - pain controlled on oral meds Assessment & Plan (06/02/2025 9:53 AM EDT): - Wound dehiscence over previous left TMA [...] day now. Last morphine early yesterday morning Assessment & Plan (06/01/2025 9:51 AM EDT): - Wound dehiscence over previous left TMA site. ESR, CRP normal. WBC wnl. Afebrile. No acute infection. Not on abx - podiatry saw - vascular following - MRI L foot 7/18 with mild marrow edema of metatarsal distal stump margins without evidence of osteomyelitis - Angiogram performed, minimal blood flow past the knee, recommended AKA - s/p AKA 8/8 - pain improving Assessment & Plan (05/31/2025 8:02 AM EDT): - Wound dehiscence over previous left TMA site. ESR, CRP normal. WBC wnl. Afebrile. No acute infection. Not on abx - podiatry saw - vascular following - MRI L foot 7/18 with mild marrow edema of metatarsal distal stump margins without evidence of osteomyelitis - Angiogram performed, minimal blood flow past the knee, recommended AKA - s/p AKA 8/8 - pain improving Assessment & Plan (05/30/2025 11:39 AM EDT): - Wound dehiscence over previous left TMA site. ESR, CRP normal. WBC wnl. Afebrile. No acute infection. Not on abx - podiatry saw - vascular following - MRI L foot 7/18 with mild marrow edema of metatarsal distal stump margins without evidence of osteomyelitis - Angiogram performed, minimal blood flow past the knee, recommended AKA - s/p AKA 8/8 - issues with pain appear to be improving. Continue same regimen today Assessment & Plan (05/29/2025 11:24 AM EDT): - Wound dehiscence over previous left TMA [...] pain remains an issue. No better with HOSPITALIST PROGRAM DIRECTOR. Will stop that and adjust prns Assessment & Plan (05/28/2025 8:08 AM EDT): - Wound dehiscence over previous left TMA [...] AKA 8/8 - pain remains an issue. Will adjust meds as BP better. Assessment & Plan (05/27/2025 9:42 AM EDT): - Wound dehiscence over previous left TMA [...] AKA 8/8 - pain remains an issue. Assessment & Plan (05/26/2025 9:50 AM EDT): - Wound dehiscence over previous left TMA site. ESR, CRP normal. WBC wnl. Afebrile. No acute infection. Not on abx - podiatry saw - vascular following - MRI L foot 7/18 with mild marrow edema of metatarsal distal stump margins without evidence of osteomyelitis - Angiogram performed, minimal blood flow past the knee, recommend edAKA - s/p AKA 8/8 - some pain issues Assessment & Plan (05/25/2025 10:33 AM EDT): - Wound dehiscence over previous left TMA site. ESR, CRP normal. WBC wnl. Afebrile. No acute infection. Not on abx - podiatry saw - vascular following - MRI L foot 7/18 with mild marrow edema of metatarsal distal stump margins without evidence of osteomyelitis - Angiogram performed, minimal blood flow past the knee, recommend AKA - s/p AKA yesterday Assessment & Plan (05/24/2025 7:56 AM EDT): - Wound dehiscence over previous left TMA site. ESR, CRP normal. WBC wnl. Afebrile. No acute infection. Not on abx - podiatry saw - vascular following - MRI L foot 7/18 with mild marrow edema of metatarsal distal stump margins without evidence of osteomyelitis - Angiogram performed, minimal blood flow past the knee, recommend AKA - planning AKA today Assessment & Plan (05/23/2025 11:46 AM EDT): - Wound dehiscence over previous left TMA [...] and cons. Currently, she is in agreement. Assessment & Plan (05/22/2025 10:29 AM EDT): - Wound dehiscence over previous left TMA site. ESR, CRP normal. WBC wnl. Afebrile. No acute infection. Not on abx - podiatry saw - vascular following - MRI L foot 7/18 with mild marrow edema of metatarsal distal stump margins without evidence of osteomyelitis - Angiogram performed, minimal blood flow past the knee, recommend AKA - planning 05/24 Assessment & Plan (05/21/2025 1:15 PM EDT): - Wound dehiscence over previous left TMA site. ESR, CRP normal. WBC wnl. Afebrile. No acute infection. Not on abx - podiatry saw - vascular following - MRI L foot 7/18 with mild marrow edema of metatarsal distal stump margins without evidence of osteomyelitis - Angiogram performed, minimal blood flow past the knee, recommend AKA - now planned 05/24 Assessment & Plan (05/20/2025 12:54 PM EDT): Wound dehiscence over previous left TMA site. [...] to have AKA tomorrow , d/w vascular Assessment & Plan (05/19/2025 3:11 PM EDT): Wound dehiscence over previous left TMA site. [...] to AKA, pt states will happen 05/24 Assessment & Plan (05/18/2025 8:38 AM EDT): Wound dehiscence over previous left TMA site. [...] surgery as pt now agreeable to AKA Assessment & Plan (05/17/2025 9:16 AM EDT): Wound dehiscence over previous left TMA site. [...] surgery as pt now agreeable to AKA Assessment & Plan (05/16/2025 2:50 PM EDT): Wound dehiscence over previous left TMA site. [...] surgery as pt now agreeable to AKA Assessment & Plan (05/15/2025 2:22 PM EDT): Wound dehiscence over previous left TMA site. ESR, CRP normal. WBC wnl. Afebrile. No acute infection. - podiatry consulted - vascular consulted - MRI L foot 7/18 with mild marrow edema of metatarsal distal stump margins without evidence of osteomyelitis - Angiogram performed, minimal blood flow past the knee, recommend AKA but pt declining -Pain control ongonig ; increase neuronting today Assessment & Plan (05/14/2025 2:51 PM EDT): Wound dehiscence over previous left TMA site. ESR, CRP normal. WBC wnl. Afebrile. No acute infection. - podiatry consulted - vascular consulted - MRI L foot 7/18 with mild marrow edema of metatarsal distal stump margins without evidence of osteomyelitis - Angiogram performed, minimal blood flow past the knee, recommend AKA but pt declining -Pain control ongonig ; increase neuronting today Assessment & Plan (05/13/2025 1:41 PM EDT): Wound dehiscence over previous left TMA site. ESR, CRP normal. WBC wnl. Afebrile. No acute infection. - podiatry consulted - vascular consulted - MRI L foot 718 with mild marrow edema of metatarsal distal stump margins without evidence of osteomyelitis - Angiogram performed, minimal blood flow past the knee, recommend AKA - Patient discussed with vascular surgery and now will undergo AKA Assessment & Plan (05/12/2025 10:17 AM EDT): Wound dehiscence over previous left TMA site. ESR, CRP normal. WBC wnl. Afebrile. No acute infection. - podiatry consulted - vascular consulted - MRI L foot 05/03 with mild marrow edema of metatarsal distal stump margins without evidence of osteomyelitis - Angiogram performed, minimal blood flow past the knee, recommend AKA -Patient currently refusing AKA, only BKA -Will discuss with family Assessment & Plan (05/11/2025 11:59 AM EDT): Wound dehiscence over previous left TMA site. ESR, CRP normal. WBC wnl. Afebrile. No acute infection. - podiatry consulted - vascular consulted - MRI L foot 05/03 with mild marrow edema of metatarsal distal stump margins without evidence of osteomyelitis - Angiogram performed, minimal blood flow past the knee, recommend AKA -Patient currently refusing AKA, only BKA -Will discuss with family Assessment & Plan (05/10/2025 1:54 PM EDT): Wound dehiscence over previous left TMA site. [...] foot - no abx at this time Assessment & Plan (05/09/2025 7:00 AM EDT): Wound dehiscence over previous left TMA site. [...] foot - no abx at this time Assessment & Plan (05/08/2025 1:05 PM EDT): Wound dehiscence over previous left TMA site. [...] foot - no abx at this time Assessment & Plan (05/07/2025 2:02 PM EDT): Wound dehiscence over previous left TMA site. [...] foot - no abx at this time Assessment & Plan (05/06/2025 9:31 AM EDT): Wound dehiscence over previous left TMA site. [...] foot - no abx at this time Assessment & Plan (05/05/2025 1:00 PM EDT): Wound dehiscence over previous left TMA site. [...] foot - no abx at this time Assessment & Plan (05/04/2025 12:51 PM EDT): Wound dehiscence over previous left TMA site. [...] foot - no abx at this time Assessment & Plan (05/03/2025 6:33 PM EDT): Wound dehiscence over previous left TMA site ESR, CRP normal WBC not elevated, afebrile 05/03/2025 Discussed with podiatry MD, plan for MRI Hold abx Assessment & Plan (05/02/2025 5:52 PM EDT): Wound dehiscence over previous left TMA site ESR, CRP normal WBC not elevated 05/02/2025 Podiatry: plan pending vascular studies Hold abx Assessment & Plan (05/01/2025 5:56 PM EDT): Wound dehiscence over previous left TMA site ESR, CRP, WBC not elevated Podiatry: does not appear infected Hold abx Assessment & Plan (04/30/2025 8:21 PM EDT): Noted Gangrene 03/09/2025 Left foot pain 03/07/2025 Gangrene due to arterial insufficiency Critical limb ischemia of left lower extremity 0 01/30/2025 PVD (peripheral vascular disease) 01/29/2025 Chest pain 01/29/2025 Osteomyelitis of great toe 01/23/2025 Abscess of toe of left foot 01/20/2025 Assessment & Plan (02/04/2025 11:33 AM EDT): Podiatry following --> s/p amputation of the great toe 01/31 Completed antibiotics per previous hospitalist discussed with podiatry, no more need for abx Podiatry has cleared the patient for discharge Assessment & Plan (02/03/2025 9:49 AM EDT): Podiatry following --> s/p amputation of the great toe 01/31 Completed antibiotics per previous hospitalist discussed with podiatry, no more need for abx Assessment & Plan (02/02/2025 10:28 AM EDT): Podiatry following --> s/p amputation of the great toe 01/31 Completed antibiotics per previous hospitalist Will reach out to podiatry to see if she needs any other antibiotics Pain management with oxycodone Assessment & Plan (02/01/2025 12:25 PM EDT): Podiatry following --> s/p amputation of the great toe 01/31 Completed antibiotics Assessment & Plan (01/31/2025 11:51 AM EDT): Podiatry following Continue antibiotics Assessment & Plan (01/30/2025 1:30 PM EDT): Podiatry following Continue antibiotics Cellulitis and abscess of toe of left foot 01/19 Assessment & Plan (01/28/2025 9:59 AM EDT): MRI suggestive of underlying osteo. Appreciate Podiatry direction. S/p I&D. Looking towards possible amputation after vascular procedures. Continue meds for pain and reassure her as we can. Assessment & Plan (01/27/2025 2:14 PM EDT): MRI suggestive of underlying osteo. Appreciate Podiatry direction. S/p I&D. Looking towards possible amputation after vascular procedures. Comfortable today Assessment & Plan (01/26/2025 12:09 PM EDT): MRI suggestive of underlying osteo. Appreciate Podiatry direction. S/p I&D. Looking towards possible amputation after vascular procedures Assessment & Plan (01/25/2025 12:22 PM EDT): MRI suggestive of underlying osteo. Appreciate Podiatry direction. S/p I&D. Looking towards possible amputation after vascular procedures Assessment & Plan (01/24/2025 9:38 AM EDT): MRI suggestive of underlying osteo. Appreciate Podiatry direction. S/p I&D. Looking towards possible amputation after vascular procedures Assessment & Plan (01/23/2025 1:07 PM EDT): MRI suggestive of underlying osteo. Appreciate Podiatry direction. S/p I&D. Looking towards possible amputation Assessment & Plan (01/22/2025 10:03 AM EDT): MRI suggestive of underlying osteo. Appreciate Podiatry direction. S/p I&D Assessment & Plan (01/21/2025 12:19 PM EDT): MRI suggestive of underlying osteo. Appreciate Podiatry direction Exostosis of toe 01/19/2025 Atherosclerosis of [place] artery of extremity Constipation 01/15/2025 Assessment & Plan (01/28/2025 9:59 AM EDT): Follow here Assessment & Plan (01/27/2025 2:14 PM EDT): Follow here Assessment & Plan (01/26/2025 12:09 PM EDT): Follow here Assessment & Plan (01/25/2025 12:22 PM EDT): Follow here Assessment & Plan (01/24/2025 9:38 AM EDT): Follow here Assessment & Plan (01/23/2025 1:07 PM EDT): Follow here Assessment & Plan (01/22/2025 10:03 AM EDT): Follow here Assessment & Plan (01/21/2025 12:19 PM EDT): Follow here Assessment & Plan (01/20/2025 2:21 PM EDT): Follow here Assessment & Plan (01/19/2025 1:36 PM EDT): Follow here Assessment & Plan (01/18/2025 1:04 PM EDT): Follow here Assessment & Plan (01/17/2025 1:00 PM EDT): Follow here Assessment & Plan (01/16/2025 9:59 AM EDT): Follow here Assessment & Plan (01/15/2025 11:35 AM EDT): Trial of mag citrate today and follow Stage 3a chronic kidney disease 01/12/2025 Assessment & Plan (06/23/2025 4:38 PM EDT): Stable Assessment & Plan (06/10/2025 5:51 PM EDT): - A1c 5.3 - diet controlled - not following FSBS Assessment & Plan (06/09/2025 11:10 AM EDT): - A1c 5.3 - diet controlled - not following FSBS Assessment & Plan (06/08/2025 11:33 AM EDT): - A1c 5.3 - diet controlled - not following FSBS Assessment & Plan (06/07/2025 12:27 PM EDT): - A1c 5.3 - diet controlled - not following FSBS Assessment & Plan (06/06/2025 3:47 PM EDT): - A1c 5.3 - diet controlled - not following FSBS Assessment & Plan (06/05/2025 12:46 PM EDT): - A1c 5.3 - diet controlled - not following FSBS Assessment & Plan (06/04/2025 1:59 PM EDT): - A1c 5.3 - diet controlled - not following FSBS Assessment & Plan (06/03/2025 7:21 AM EDT): - Baseline approx 0.9-1.2. - stable Assessment & Plan (06/02/2025 9:53 AM EDT): - Baseline approx 0.9-1.2. - stable Assessment & Plan (06/01/2025 9:51 AM EDT): - Baseline approx 0.9-1.2. - stable Assessment & Plan (05/31/2025 8:02 AM EDT): - Baseline approx 0.9-1.2. - stable Assessment & Plan (05/30/2025 11:39 AM EDT): - Baseline approx 0.9-1.2. - stable Assessment & Plan (05/29/2025 11:24 AM EDT): - Baseline approx 0.9-1.2. - stable Assessment & Plan (05/28/2025 8:08 AM EDT): - Baseline approx 0.9-1.2. - stable Assessment & Plan (05/27/2025 9:42 AM EDT): - Baseline approx 0.9-1.2. - stable Assessment & Plan (05/26/2025 9:50 AM EDT): - Baseline approx 0.9-1.2. - stable Assessment & Plan (05/25/2025 10:33 AM EDT): - Baseline approx 0.9-1.2. - stable Assessment & Plan (05/24/2025 7:56 AM EDT): - Baseline approx 0.9-1.2. - stable Assessment & Plan (05/23/2025 11:46 AM EDT): - Baseline approx 0.9-1.2. - stable Assessment & Plan (05/22/2025 10:29 AM EDT): - Baseline approx 0.9-1.2. - stable Assessment & Plan (05/21/2025 1:15 PM EDT): - Baseline approx 0.9-1.2. - stable Assessment & Plan (05/20/2025 12:54 PM EDT): Cre 1.05 at admit. Baseline approx 0.9-1.2. -Cr 0.91 Assessment & Plan (05/19/2025 3:11 PM EDT): Cre 1.05 at admit. Baseline approx 0.9-1.2. -repeat bmp Assessment & Plan (05/18/2025 12:07 PM EDT): Cre 1.05 at admit. Baseline approx 0.9-1.2. -Cr stable 0.83, repeat sp OR Assessment & Plan (05/17/2025 1:37 PM EDT): Cre 1.05 at admit. Baseline approx 0.9-1.2. -Cr stable 0.8 , repeat sp OR Assessment & Plan (05/16/2025 2:50 PM EDT): Cre 1.05 at admit. Baseline approx 0.9-1.2. -Cr stable 0.8 Assessment & Plan (05/15/2025 2:22 PM EDT): Cre 1.05 at admit. Baseline approx 0.9-1.2. - caution with contrast - note plans for angiogram - monitor renal function closely - avoid hypotension, nephrotoxins as able Assessment & Plan (05/14/2025 10:10 AM EDT): Cre 1.05 at admit. Baseline approx 0.9-1.2. - caution with contrast - note plans for angiogram - monitor renal function closely - avoid hypotension, nephrotoxins as able Assessment & Plan (05/13/2025 9:08 AM EDT): Cre 1.05 at admit. Baseline approx 0.9-1.2. - caution with contrast - note plans for angiogram - monitor renal function closely - avoid hypotension, nephrotoxins as able Assessment & Plan (05/12/2025 10:17 AM EDT): Cre 1.05 at admit. Baseline approx 0.9-1.2. - caution with contrast - note plans for angiogram - monitor renal function closely - avoid hypotension, nephrotoxins as able Assessment & Plan (05/11/2025 7:12 AM EDT): Cre 1.05 at admit. Baseline approx 0.9-1.2. - caution with contrast - note plans for angiogram - monitor renal function closely - avoid hypotension, nephrotoxins as able Assessment & Plan (05/10/2025 1:54 PM EDT): Cre 1.05 at admit. Baseline approx 0.9-1.2. - caution with contrast - note plans for angiogram - monitor renal function closely - avoid hypotension, nephrotoxins as able Assessment & Plan (05/09/2025 7:00 AM EDT): Cre 1.05 at admit. Baseline approx 0.9-1.2. - caution with contrast - note plans for angiogram - monitor renal function closely - avoid hypotension, nephrotoxins as able Assessment & Plan (05/08/2025 6:56 AM EDT): Cre 1.05 at admit. Baseline approx 0.9-1.2. - caution with contrast - note plans for angiogram - monitor renal function closely - avoid hypotension, nephrotoxins as able Assessment & Plan (05/07/2025 7:10 AM EDT): Cre 1.05 at admit. Baseline approx 0.9-1.2. - caution with contrast - note plans for angiogram - monitor renal function closely - avoid hypotension, nephrotoxins as able Assessment & Plan (05/06/2025 9:31 AM EDT): Cre 1.05 at admit. Baseline approx 0.9-1.2. - caution with contrast - note plans for angiogram - monitor renal function closely - avoid hypotension, nephrotoxins as able Assessment & Plan (05/05/2025 1:00 PM EDT): Cre 1.05 at admit. Baseline approx 0.9-1.2. - caution with contrast - note plans for angiogram - monitor renal function closely - avoid hypotension, nephrotoxins as able Assessment & Plan (05/05/2025 12:57 PM EDT): Cre 1.05 at admit. Baseline approx 0.9-1.2. - caution with contrast - note plans for angiogram - monitor renal function closely - avoid hypotension, nephrotoxins as able Assessment & Plan (05/03/2025 6:33 PM EDT): Baseline CR 0.9-1.2, stable Assessment & Plan (05/02/2025 5:52 PM EDT): Baseline CR 0.9-1.2, stable Assessment & Plan (05/01/2025 5:56 PM EDT): Baseline CR 0.9-1.2, stable Assessment & Plan (04/30/2025 8:21 PM EDT): Baseline CR 0.9-1.2, stable Assessment & Plan (02/04/2025 11:33 AM EDT): Monitor BMP Creatinine stable Assessment & Plan (02/03/2025 9:49 AM EDT): Monitor BMP Creatinine stable Assessment & Plan (02/02/2025 10:28 AM EDT): Monitor BMP Creatinine stable Assessment & Plan (02/01/2025 12:25 PM EDT): Monitor BMP Creatinine stable Assessment & Plan (01/31/2025 11:51 AM EDT): Monitor BMP Creatinine stable Assessment & Plan (01/30/2025 1:30 PM EDT): Monitor BMP Creatinine stable Assessment & Plan (01/28/2025 9:59 AM EDT): Lab Results Component Value Date CREATININE 0.94 01/27/2025 Assessment & Plan (01/27/2025 2:14 PM EDT): Lab Results Component Value Date CREATININE 1.14 01/24/2025 Assessment & Plan (01/26/2025 12:09 PM EDT): Lab Results Component Value Date CREATININE 1.14 01/24/2025 Assessment & Plan (01/25/2025 12:22 PM EDT): Lab Results Component Value Date CREATININE 1.14 01/24/2025 Assessment & Plan (01/24/2025 9:38 AM EDT): Lab Results Component Value Date CREATININE 1.00 01/22/2025 Assessment & Plan (01/23/2025 1:07 PM EDT): Lab Results Component Value Date CREATININE 1.00 01/22/2025 Assessment & Plan (01/22/2025 10:03 AM EDT): Lab Results Component Value Date CREATININE 1.17 01/19/2025 Assessment & Plan (01/21/2025 12:19 PM EDT): Lab Results Component Value Date CREATININE 1.17 01/19/2025 Assessment & Plan (01/20/2025 2:21 PM EDT): Lab Results Component Value Date CREATININE 1.17 01/19/2025 Assessment & Plan (01/19/2025 1:36 PM EDT): Lab Results Component Value Date CREATININE 1.17 01/19/2025 Assessment & Plan (01/18/2025 1:04 PM EDT): Lab Results Component Value Date CREATININE 1.30 01/13/2025 Assessment & Plan (01/17/2025 1:00 PM EDT): Lab Results Component Value Date CREATININE 1.30 01/13/2025 Assessment & Plan (01/16/2025 9:59 AM EDT): Lab Results Component Value Date CREATININE 1.30 01/13/2025 Assessment & Plan (01/15/2025 11:35 AM EDT): Lab Results Component Value Date CREATININE 1.30 01/13/2025 Assessment & Plan (01/15/2025 6:29 AM EDT): -- Baseline Cr 1.03-1.32 >> 1.19 on admissin >> 1.12 >> 1.21 >> 1.30 Assessment & Plan (01/15/2025 6:21 AM EDT): -- Baseline Cr 1.03-1.32 >> 1.19 on admissin >> 1.12 >> 1.21 >> 1.30 Assessment & Plan (01/15/2025 6:10 AM EDT): -- Baseline Cr 1.03-1.32 >> 1.19 on admissin >> 1.12 >> 1.21 Assessment & Plan (01/12/2025 10:29 PM EDT): -- Baseline Cr 1.03-1.32 >> 1.19 on admissin Hyponatremia 01/12/2025 Assessment & Plan (06/03/2025 7:21 AM EDT): - hypervolemic. Recheck in AM Assessment & Plan (01/28/2025 9:59 AM EDT): -- chronic -- Na 133 on admission >> 133 >> 135 >> 132 > 136 > 137 > 139. Stable Lab Results Component Value Date NA 139 01/27/2025 K 3.4 (L) 01/27/2025 CL 106 01/27/2025 CO2 22 01/27/2025 Assessment & Plan (01/27/2025 2:14 PM EDT): -- chronic -- Na 133 on admission >> 133 >> 135 >> 132 > 136 > 137 Recheck labs Lab Results Component Value Date NA 137 01/24/2025 K 4.0 01/24/2025 CL 106 01/24/2025 CO2 21 (L) 01/24/2025 Assessment & Plan (01/26/2025 12:09 PM EDT): -- chronic -- Na 133 on admission >> 133 >> 135 >> 132 > 136 > 137 Normalizing Lab Results Component Value Date NA 137 01/24/2025 K 4.0 01/24/2025 CL 106 01/24/2025 CO2 21 (L) 01/24/2025 Assessment & Plan (01/25/2025 12:22 PM EDT): -- chronic -- Na 133 on admission >> 133 >> 135 >> 132 > 136 > 137 Normalizing Lab Results Component Value Date NA 137 01/24/2025 K 4.0 01/24/2025 CL 106 01/24/2025 CO2 21 (L) 01/24/2025 Assessment & Plan (01/24/2025 9:38 AM EDT): -- chronic -- Na 133 on admission >> 133 >> 135 >> 132 > 136 Repeat labs Lab Results Component Value Date NA 136 01/22/2025 K 4.1 01/22/2025 CL 104 01/22/2025 CO2 23 01/22/2025 Assessment & Plan (01/23/2025 1:07 PM EDT): -- chronic -- Na 133 on admission >> 133 >> 135 >> 132 > 136 Repeat labs Lab Results Component Value Date NA 136 01/22/2025 K 4.1 01/22/2025 CL 104 01/22/2025 CO2 23 01/22/2025 Assessment & Plan (01/22/2025 10:03 AM EDT): -- chronic -- Na 133 on admission >> 133 >> 135 >> 132 > 136 Repeat labs Lab Results Component Value Date NA 136 01/19/2025 K 4.4 01/19/2025 CL 107 01/19/2025 CO2 22 01/19/2025 Assessment & Plan (01/21/2025 12:19 PM EDT): -- chronic -- Na 133 on admission >> 133 >> 135 >> 132 > 136 Normal today Lab Results Component Value Date NA 136 01/19/2025 K 4.4 01/19/2025 CL 107 01/19/2025 CO2 22 01/19/2025 Assessment & Plan (01/20/2025 2:21 PM EDT): -- chronic -- Na 133 on admission >> 133 >> 135 >> 132 > 136 Normal today Lab Results Component Value Date NA 136 01/19/2025 K 4.4 01/19/2025 CL 107 01/19/2025 CO2 22 01/19/2025 Assessment & Plan (01/19/2025 1:36 PM EDT): -- chronic -- Na 133 on admission >> 133 >> 135 >> 132 Lab Results Component Value Date NA 136 01/19/2025 K 4.4 01/19/2025 CL 107 01/19/2025 CO2 22 01/19/2025 Assessment & Plan (01/18/2025 1:04 PM EDT): -- chronic -- Na 133 on admission >> 133 >> 135 >> 132 Lab Results Component Value Date NA 132 (L) 01/13/2025 K 4.2 01/13/2025 CL 101 01/13/2025 CO2 21 (L) 01/13/2025 Assessment & Plan (01/17/2025 1:00 PM EDT): -- chronic -- Na 133 on admission >> 133 >> 135 >> 132 Lab Results Component Value Date NA 132 (L) 01/13/2025 K 4.2 01/13/2025 CL 101 01/13/2025 CO2 21 (L) 01/13/2025 Assessment & Plan (01/16/2025 9:59 AM EDT): -- chronic -- Na 133 on admission >> 133 >> 135 >> 132 Lab Results Component Value Date NA 132 (L) 01/13/2025 K 4.2 01/13/2025 CL 101 01/13/2025 CO2 21 (L) 01/13/2025 Assessment & Plan (01/15/2025 11:35 AM EDT): -- chronic -- Na 133 on admission >> 133 >> 135 >> 132 Lab Results Component Value Date NA 132 (L) 01/13/2025 K 4.2 01/13/2025 CL 101 01/13/2025 CO2 21 (L) 01/13/2025 Assessment & Plan (01/15/2025 6:29 AM EDT): -- chronic -- Na 133 on admission >> 133 >> 135 >> 132 Assessment & Plan (01/15/2025 6:21 AM EDT): -- chronic -- Na 133 on admission >> 133 >> 135 >> 132 Assessment & Plan (01/15/2025 6:10 AM EDT): -- chronic -- Na 133 on admission >> 133 >> 135 Assessment & Plan (01/12/2025 10:29 PM EDT): -- chronic -- Na 133 on admission Anemia in other chronic diseases classified else where 01/12/2025 Assessment & Plan (06/23/2025 4:38 PM EDT): Stable Assessment & Plan (06/10/2025 5:51 PM EDT): - A1c 5.3 - diet controlled - not following FSBS Assessment & Plan (06/09/2025 11:10 AM EDT): - A1c 5.3 - diet controlled - not following FSBS Assessment & Plan (06/08/2025 11:33 AM EDT): - A1c 5.3 - diet controlled - not following FSBS Assessment & Plan (06/07/2025 12:27 PM EDT): - A1c 5.3 - diet controlled - not following FSBS Assessment & Plan (06/06/2025 3:47 PM EDT): - A1c 5.3 - diet controlled - not following FSBS Assessment & Plan (06/05/2025 12:46 PM EDT): - A1c 5.3 - diet controlled - not following FSBS Assessment & Plan (06/04/2025 1:59 PM EDT): - A1c 5.3 - diet controlled - not following FSBS Assessment & Plan (06/03/2025 7:21 AM EDT): - b12, folate, iron ok. Trasferrin down - follow trend Assessment & Plan (06/02/2025 9:53 AM EDT): - b12, folate, iron ok. Trasferrin down - follow trend Assessment & Plan (06/01/2025 9:51 AM EDT): - b12, folate, iron ok. Trasferrin down - follow trend Assessment & Plan (05/31/2025 8:02 AM EDT): - b12, folate, iron ok. Trasferrin down - follow trend Assessment & Plan (05/30/2025 11:39 AM EDT): - b12, folate, iron ok. Trasferrin down - follow trend Assessment & Plan (05/29/2025 11:24 AM EDT): - b12, folate, iron ok. Trasferrin down - hgb down some this am. Repeat this afternoon Assessment & Plan (05/28/2025 8:08 AM EDT): - low but stable - b12, folate, iron ok. Trasferrin down - hgb trending down again. No obvious bleeding - follow trend Assessment & Plan (05/27/2025 9:42 AM EDT): - low but stable - b12, folate, iron ok. Trasferrin down - INR up just a little. Smear ok Assessment & Plan (05/26/2025 9:50 AM EDT): - low but stable - b12, folate, iron ok. Trasferrin down - INR up just a little. Smear ok Assessment & Plan (05/25/2025 10:33 AM EDT): - low but stable - b12, folate, iron ok. Trasferrin down - INR up just a little. Smear ok Assessment & Plan (05/24/2025 7:56 AM EDT): - low but stable - b12, folate, iron ok. Trasferrin down - INR up just a little. Smear ok Assessment & Plan (05/23/2025 11:46 AM EDT): - low but stable - b12, folate, iron ok. Trasferrin down - INR up just a little. Smear ok Assessment & Plan (05/22/2025 10:29 AM EDT): - low but stable - b12, folate, iron ok. Trasferrin down - INR up just a little. Smear pending Assessment & Plan (05/21/2025 1:15 PM EDT): - low but stable - b12, folate, iron ok. Trasferrin down - check smear, INR Assessment & Plan (05/20/2025 12:54 PM EDT): Continue to monitor Hgb 8.7> 7.6, no report of blood loss -Check b12/folate/iron Assessment & Plan (05/19/2025 11:25 AM EDT): Continue to monitor hemoglobin appears stable at the moment Assessment & Plan (05/18/2025 8:38 AM EDT): Continue to monitor hemoglobin appears stable at the moment Assessment & Plan (05/17/2025 9:16 AM EDT): Continue to monitor hemoglobin appears stable at the moment Assessment & Plan (05/16/2025 2:50 PM EDT): Continue to monitor hemoglobin appears stable at the moment Assessment & Plan (05/15/2025 2:22 PM EDT): Continue to monitor hemoglobin appears stable at the moment Assessment & Plan (05/14/2025 10:10 AM EDT): Continue to monitor hemoglobin appears stable at the moment Assessment & Plan (05/13/2025 9:08 AM EDT): Continue to monitor hemoglobin appears stable at the moment Assessment & Plan (05/12/2025 10:17 AM EDT): Continue to monitor hemoglobin appears stable at the moment Assessment & Plan (05/11/2025 7:12 AM EDT): Continue to monitor hemoglobin appears stable at the moment Assessment & Plan (05/10/2025 1:54 PM EDT): Continue to monitor hemoglobin appears stable at the moment Assessment & Plan (05/09/2025 7:00 AM EDT): Continue to monitor hemoglobin appears stable at the moment Assessment & Plan (05/08/2025 1:05 PM EDT): Continue to monitor hemoglobin appears stable at the moment Assessment & Plan (02/04/2025 11:33 AM EDT): Hemoglobin stable at 8 Outpatient workup recommended Assessment & Plan (02/03/2025 9:49 AM EDT): Slow drop in hemoglobin throughout hospitalization Suspect secondary to infection, bone marrow suppression, blood loss with the surgery Consider PRBC for hemoglobin less than 7 Monitor Assessment & Plan (02/02/2025 10:28 AM EDT): Slow drop in hemoglobin throughout hospitalization Suspect secondary to infection, bone marrow suppression, blood loss with the surgery Consider PRBC for hemoglobin less than 7 Monitor Assessment & Plan (01/28/2025 9:59 AM EDT): -- Macrocytic - chronic macrocytosis -- no signs of bleeding -- Hgb 12.4 in 05/2024 >> 10.2 on admission >> 10.2 >>10.2 >> 9.5 >> 10.0 > 8.9 > 8.1 > 8.3 > 8.0 > 8.2 > 8.3 Rising with rechecks Monitoring Lab Results Component Value Date HGB 8.3 (L) 01/27/2025 Assessment & Plan (01/27/2025 2:14 PM EDT): -- Macrocytic - chronic macrocytosis -- no signs of bleeding -- Hgb 12.4 in 05/2024 >> 10.2 on admission >> 10.2 >>10.2 >> 9.5 >> 10.0 > 8.9 > 8.1 > 8.3 > 8.0 > 8.2 > 8.3 Rising with rechecks Monitoring Lab Results Component Value Date HGB 8.3 (L) 01/27/2025 Assessment & Plan (01/26/2025 12:09 PM EDT): -- Macrocytic - chronic macrocytosis -- no signs of bleeding -- Hgb 12.4 in 05/2024 >> 10.2 on admission >> 10.2 >>10.2 >> 9.5 >> 10.0 > 8.9 > 8.1 > 8.3 > 8.0 > 8.2 Rising with rechecks Monitoring Lab Results Component Value Date HGB 8.2 (L) 01/25/2025 Assessment & Plan (01/25/2025 12:22 PM EDT): -- Macrocytic - chronic macrocytosis -- no signs of bleeding -- Hgb 12.4 in 05/2024 >> 10.2 on admission >> 10.2 >>10.2 >> 9.5 >> 10.0 > 8.9 > 8.1 > 8.3 > 8.0 > 8.2 Rising today Monitoring Lab Results Component Value Date HGB 8.2 (L) 01/25/2025 Assessment & Plan (01/24/2025 9:38 AM EDT): -- Macrocytic - chronic macrocytosis -- no signs of bleeding -- Hgb 12.4 in 05/2024 >> 10.2 on admission >> 10.2 >>10.2 >> 9.5 >> 10.0 > 8.9 > 8.1 > 8.3 > 8.0 Monitoring Lab Results Component Value Date HGB 8.0 (L) 01/23/2025 Assessment & Plan (01/23/2025 1:07 PM EDT): -- Macrocytic - chronic macrocytosis -- no signs of bleeding -- Hgb 12.4 in 05/2024 >> 10.2 on admission >> 10.2 >>10.2 >> 9.5 >> 10.0 > 8.9 > 8.1 > 8.3 > 8.0 Stable Lab Results Component Value Date HGB 8.0 (L) 01/23/2025 Assessment & Plan (01/22/2025 10:03 AM EDT): -- Macrocytic - chronic macrocytosis -- no signs of bleeding -- Hgb 12.4 in 05/2024 >> 10.2 on admission >> 10.2 >>10.2 >> 9.5 >> 10.0 > 8.9 > 8.1 > 8.3. Stable Lab Results Component Value Date HGB 8.3 (L) 01/21/2025 Assessment & Plan (01/21/2025 12:20 PM EDT): -- Macrocytic - chronic macrocytosis -- no signs of bleeding -- Hgb 12.4 in 05/2024 >> 10.2 on admission >> 10.2 >>10.2 >> 9.5 >> 10.0 > 8.9 > 8.1 > 8.3. Following. Lab Results Component Value Date HGB 8.3 (L) 01/21/2025 Assessment & Plan (01/20/2025 2:21 PM EDT): -- Macrocytic - chronic macrocytosis -- no signs of bleeding -- Hgb 12.4 in 05/2024 >> 10.2 on admission >> 10.2 >>10.2 >> 9.5 >> 10.0 > 8.9 > 8.1. Following. Lab Results Component Value Date HGB 8.1 (L) 01/19/2025 Assessment & Plan (01/19/2025 1:36 PM EDT): -- Macrocytic - chronic macrocytosis -- no signs of bleeding -- Hgb 12.4 in 05/2024 >> 10.2 on admission >> 10.2 >>10.2 >> 9.5 >> 10.0 > 8.9 Lab Results Component Value Date HGB 8.1 (L) 01/19/2025 Assessment & Plan (01/18/2025 1:04 PM EDT): -- Macrocytic - chronic macrocytosis -- no signs of bleeding -- Hgb 12.4 in 05/2024 >> 10.2 on admission >> 10.2 >>10.2 >> 9.5 >> 10.0 > 8.9 Lab Results Component Value Date HGB 8.9 (L) 01/17/2025 Assessment & Plan (01/17/2025 1:00 PM EDT): -- Macrocytic - chronic macrocytosis -- no signs of bleeding -- Hgb 12.4 in 05/2024 >> 10.2 on admission >> 10.2 >>10.2 >> 9.5 >> 10.0 > 8.9 today Lab Results Component Value Date HGB 8.9 (L) 01/17/2025 Assessment & Plan (01/16/2025 9:59 AM EDT): -- Macrocytic - chronic macrocytosis -- no signs of bleeding -- Hgb 12.4 in 05/2024 >> 10.2 on admission >> 10.2 >>10.2 >> 9.5 >> 10.0 Lab Results Component Value Date HGB 10.0 (L) 01/15/2025 Assessment & Plan (01/15/2025 11:35 AM EDT): -- Macrocytic - chronic macrocytosis -- no signs of bleeding -- Hgb 12.4 in 05/2024 >> 10.2 on admission >> 10.2 >>10.2 >> 9.5 >> 10.0 Lab Results Component Value Date HGB 10.0 (L) 01/15/2025 Assessment & Plan (01/15/2025 6:29 AM EDT): -- Macrocytic - chronic macrocytosis -- no signs of bleeding -- Hgb 12.4 in 05/2024 >> 10.2 on admission >> 10.2 >>10.2 >> 9.5 Assessment & Plan (01/15/2025 6:21 AM EDT): -- Macrocytic - chronic macrocytosis -- no signs of bleeding -- Hgb 12.4 in 05/2024 >> 10.2 on admission >> 10.2 >>10.2 >> 9.5 Assessment & Plan (01/15/2025 6:10 AM EDT): -- Macrocytic - chronic macrocytosis -- no signs of bleeding -- Hgb 12.4 in 05/2024 >> 10.2 on admission >> 10.2 >>10.2 Assessment & Plan (01/12/2025 10:29 PM EDT): -- Macrocytic - chronic macrocytosis -- no signs of bleeding -- Hgb 12.4 in 05/2024 >> 10.2 on admission Great toe pain, left 01/11/2025 Assessment & Plan (01/28/2025 9:59 AM EDT): S/p angiogram Assessment & Plan (01/27/2025 2:14 PM EDT): S/p angiogram Assessment & Plan (01/26/2025 12:09 PM EDT): S/p angiogram Assessment & Plan (01/25/2025 12:22 PM EDT): S/p angiogram Assessment & Plan (01/24/2025 9:38 AM EDT): S/p angiogram Assessment & Plan (01/23/2025 1:07 PM EDT): S/p angiogram Assessment & Plan (01/22/2025 10:03 AM EDT): S/p angiogram Assessment & Plan (01/21/2025 12:19 PM EDT): S/p angiogram Assessment & Plan (01/20/2025 2:21 PM EDT): S/p angiogram Assessment & Plan (01/19/2025 1:36 PM EDT): Angiogram today Assessment & Plan (01/18/2025 1:04 PM EDT): Angiogram today Assessment & Plan (01/17/2025 1:00 PM EDT): Angiogram today Assessment & Plan (01/16/2025 9:59 AM EDT): -- ? Ischemic ulcer or embolic injury to left great toe Looking towards angiogram possible . Continue Heparin gtt. Pain control. Assessment & Plan (01/15/2025 11:35 AM EDT): -- ? Ischemic ulcer or embolic injury to left great toe Looking towards angiogram possible Assessment & Plan (01/15/2025 6:29 AM EDT): -- ? Ischemic ulcer or embolic injury to left great toe -- Podiatry consulted -- await vascular intervention Assessment & Plan (01/15/2025 6:21 AM EDT): -- ? Ischemic ulcer or embolic injury to left great toe -- Podiatry consulted Assessment & Plan (01/15/2025 6:10 AM EDT): -- ? Ischemic ulcer or embolic injury to left great toe -- Podiatry consulted Assessment & Plan (01/12/2025 10:29 PM EDT): -- ? Ischemic ulcer or embolic injury to left great toe Left leg pain 01/11/2025 PAD (peripheral artery disease) 01/11/2025 Assessment & Plan (06/10/2025 5:51 PM EDT): - vascular following - severe disease - AKA as above Assessment & Plan (06/09/2025 11:10 AM EDT): - vascular following - severe disease - AKA as above Assessment & Plan (06/08/2025 11:33 AM EDT): - vascular following - severe disease - AKA as above Assessment & Plan (06/07/2025 12:27 PM EDT): - vascular following - severe disease - AKA as above Assessment & Plan (06/06/2025 3:47 PM EDT): - vascular following - severe disease - AKA as above Assessment & Plan (06/05/2025 12:46 PM EDT): - vascular following - severe disease - AKA as above Assessment & Plan (06/04/2025 1:59 PM EDT): - vascular following - severe disease - AKA as above Assessment & Plan (06/03/2025 7:21 AM EDT): - vascular following - severe disease - AKA as above Assessment & Plan (06/02/2025 9:53 AM EDT): - vascular following - severe disease - AKA as above Assessment & Plan (06/01/2025 9:51 AM EDT): - vascular following - severe disease - AKA as above Assessment & Plan (05/31/2025 8:02 AM EDT): - vascular following - severe disease - AKA as above Assessment & Plan (05/30/2025 11:39 AM EDT): - vascular following - severe disease - AKA as above Assessment & Plan (05/29/2025 11:24 AM EDT): - vascular following - severe disease - AKA as above Assessment & Plan (05/28/2025 8:08 AM EDT): - vascular following - severe disease - AKA as above Assessment & Plan (05/27/2025 9:42 AM EDT): - vascular following - severe disease - AKA as above Assessment & Plan (05/26/2025 9:50 AM EDT): - vascular following - severe disease - AKA as above Assessment & Plan (05/25/2025 10:33 AM EDT): - vascular following - severe disease - AKA as above Assessment & Plan (05/24/2025 7:56 AM EDT): - vascular following - severe disease - plan for amputation as above Assessment & Plan (05/23/2025 11:46 AM EDT): - vascular following - severe disease - plan for amputation as above Assessment & Plan (05/22/2025 10:29 AM EDT): - vascular following - severe disease - plan for amputation as above Assessment & Plan (05/21/2025 1:15 PM EDT): - vascular following - severe disease Assessment & Plan (05/20/2025 12:54 PM EDT): History of angiogram 01/2025. 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 - vascular consulted - arterial studies 7/17 with significant PAD - DETHISTLER OPERATOR stenosis Patent popliteal and TPT with severe stenosis Patent proximal WASHING MACHINE ASSEMBLER but occluded distally without reconstitution Patent DAREN with multifocal severe stenosis, occlusion at the level of the ankle and no distal reconstitution Significant small vessel disease in L foot Assessment & Plan (05/18/2025 8:38 AM EDT): History of angiogram 01/2025. - vascular consulted - arterial studies 7/17 with significant PAD - DETHISTLER OPERATOR stenosis Patent popliteal and TPT with severe stenosis Patent proximal WASHING MACHINE ASSEMBLER but occluded distally without reconstitution Patent DAREN with multifocal severe stenosis, occlusion at the level of the ankle and no distal reconstitution Significant small vessel disease in L foot Assessment & Plan (05/17/2025 9:16 AM EDT): History of angiogram 01/2025. - vascular consulted - arterial studies 7/17 with significant PAD - DETHISTLER OPERATOR stenosis Patent popliteal and TPT with severe stenosis Patent proximal WASHING MACHINE ASSEMBLER but occluded distally without reconstitution Patent DAREN with multifocal severe stenosis, occlusion at the level of the ankle and no distal reconstitution Significant small vessel disease in L foot Assessment & Plan (05/16/2025 2:50 PM EDT): History of angiogram 01/2025. - vascular consulted - arterial studies 7/17 with significant PAD - DETHISTLER OPERATOR stenosis Patent popliteal and TPT with severe stenosis Patent proximal WASHING MACHINE ASSEMBLER but occluded distally without reconstitution Patent DAREN with multifocal severe stenosis, occlusion at the level of the ankle and no distal reconstitution Significant small vessel disease in L foot Assessment & Plan (05/15/2025 2:22 PM EDT): History of angiogram 01/2025. - vascular consulted - arterial studies 7/17 with significant PAD - DETHISTLER OPERATOR stenosis Patent popliteal and TPT with severe stenosis Patent proximal WASHING MACHINE ASSEMBLER but occluded distally without reconstitution Patent DAREN with multifocal severe stenosis, occlusion at the level of the ankle and no distal reconstitution Significant small vessel disease in L foot Assessment & Plan (05/14/2025 10:10 AM EDT): History of angiogram 01/2025. - vascular consulted - arterial studies 7/17 with significant PAD - DETHISTLER OPERATOR stenosis Patent popliteal and TPT with severe stenosis Patent proximal WASHING MACHINE ASSEMBLER but occluded distally without reconstitution Patent DAREN with multifocal severe stenosis, occlusion at the level of the ankle and no distal reconstitution Significant small vessel disease in L foot Assessment & Plan (05/13/2025 9:08 AM EDT): History of angiogram 01/2025. - vascular consulted - arterial studies 7/17 with significant PAD - DETHISTLER OPERATOR stenosis Patent popliteal and TPT with severe stenosis Patent proximal WASHING MACHINE ASSEMBLER but occluded distally without reconstitution Patent DAREN with multifocal severe stenosis, occlusion at the level of the ankle and no distal reconstitution Significant small vessel disease in L foot Assessment & Plan (05/12/2025 10:17 AM EDT): History of angiogram 01/2025. - vascular consulted - arterial studies 7/17 with significant PAD - DETHISTLER OPERATOR stenosis Patent popliteal and TPT with severe stenosis Patent proximal WASHING MACHINE ASSEMBLER but occluded distally without reconstitution Patent DAREN with multifocal severe stenosis, occlusion at the level of the ankle and no distal reconstitution Significant small vessel disease in L foot Assessment & Plan (05/11/2025 11:59 AM EDT): History of angiogram 01/2025. - vascular consulted - arterial studies 7/17 with significant PAD - DETHISTLER OPERATOR stenosis Patent popliteal and TPT with severe stenosis Patent proximal WASHING MACHINE ASSEMBLER but occluded distally without reconstitution Patent DAREN with multifocal severe stenosis, occlusion at the level of the ankle and no distal reconstitution Significant small vessel disease in L foot Assessment & Plan (05/10/2025 1:54 PM EDT): History of angiogram 01/2025. - vascular consulted - arterial studies 7/17 with significant PAD - plans for angiogram under anesthesia this , April 10, now - continue lipitor Assessment & Plan (05/09/2025 7:00 AM EDT): History of angiogram 01/2025. - vascular consulted - arterial studies 7/17 with significant PAD - plans for angiogram under anesthesia this week, April 10 - continue lipitor Assessment & Plan (05/08/2025 6:56 AM EDT): History of angiogram 01/2025. - vascular consulted - arterial studies 7/17 with significant PAD - plans for angiogram under anesthesia this week, April 10 - continue lipitor Assessment & Plan (05/07/2025 2:02 PM EDT): History of angiogram 01/2025. - vascular consulted - arterial studies 7/17 with significant PAD - plans for angiogram under anesthesia this week, April 10 - continue lipitor Assessment & Plan (05/06/2025 9:31 AM EDT): History of angiogram 01/2025. - vascular consulted - arterial studies 7/17 with significant PAD - plans for angiogram under anesthesia this week - continue lipitor Assessment & Plan (05/05/2025 1:00 PM EDT): History of angiogram 01/2025. - vascular consulted - arterial studies 7/17 with significant PAD - plans for angiogram under anesthesia this week - continue lipitor Assessment & Plan (05/05/2025 12:57 PM EDT): History of angiogram 01/2025. - vascular consulted - arterial studies 7/17 with significant PAD - plans for angiogram under anesthesia this week - continue lipitor Assessment & Plan (05/03/2025 6:33 PM EDT): History of angiogram 01/2025 Significant dz noted on u/s Vascular consult: plan for angio soon Assessment & Plan (05/02/2025 5:52 PM EDT): History of angiogram 01/2025 Significant dz noted on u/s Vascular consult Assessment & Plan (05/01/2025 5:56 PM EDT): History of angiogram 01/2025 Assessment & Plan (04/30/2025 8:21 PM EDT): History of angiogram 01/2025 Assessment & Plan (02/04/2025 11:33 AM EDT): Per vascular surgery Aspirin, Plavix, statin S/p angiogram 01/30 revascularization, TPT occlusion Patient reported severe pain Vascular surgery evaluated No concern for acute limb ischemia from vascular surgery standpoint Vascular surgery has cleared the patient for discharge Outpatient follow-up with vascular surgery Assessment & Plan (02/03/2025 9:49 AM EDT): Per vascular surgery Aspirin, Plavix, statin S/p angiogram 01/30 revascularization, TPT occlusion Now has severe foot pain, ?ischemic discussed with Dr Molina to eval patient continue oxycodone and add oxycontin Morphine IV for pain not controlled with po pills Assessment & Plan (02/02/2025 10:28 AM EDT): Per vascular surgery Aspirin, Plavix, statin S/p angiogram 01/30 revascularization, TPT occlusion Assessment & Plan (02/01/2025 12:25 PM EDT): Per vascular surgery S/p angiogram 01/30 Assessment & Plan (01/31/2025 11:51 AM EDT): Per vascular surgery S/p angiogram 01/30 Assessment & Plan (01/30/2025 1:30 PM EDT): Per vascular surgery Assessment & Plan (01/28/2025 9:59 AM EDT): S/p angiogram. Another procedure on 01/30 per Vascular Assessment & Plan (01/27/2025 2:14 PM EDT): S/p angiogram. Another procedure on 01/30 per Vascular Assessment & Plan (01/26/2025 12:09 PM EDT): S/p angiogram. Another procedure on 01/30 per Vascular Assessment & Plan (01/25/2025 12:22 PM EDT): S/p angiogram. Another procedure on 01/30 Assessment & Plan (01/24/2025 9:38 AM EDT): S/p angiogram. Another procedure this week Assessment & Plan (01/23/2025 1:07 PM EDT): S/p angiogram. Assessment & Plan (01/22/2025 10:03 AM EDT): S/p angiogram. Assessment & Plan (01/21/2025 12:19 PM EDT): S/p angiogram. Assessment & Plan (01/20/2025 2:21 PM EDT): S/p angiogram. Better perfused but pain issues persist. Continue pain meds. Appreciate Podiatry. Plans for I&D. Assessment & Plan (01/19/2025 1:36 PM EDT): S/p angiogram. Better perfused but pain issues persist. Hopefully home tomorrow if pain continues to improve Assessment & Plan (01/18/2025 1:04 PM EDT): S/p angiogram. Better perfused but pain issues today. Should be able to go once we achieve good pain control Assessment & Plan (01/17/2025 1:00 PM EDT): Continue Heparin gtt. Appreciate Vascular direction Assessment & Plan (01/16/2025 9:59 AM EDT): Continue Heparin gtt. Appreciate Vascular direction Assessment & Plan (01/15/2025 11:35 AM EDT): Continue Heparin gtt. Appreciate Vascular direction Assessment & Plan (01/15/2025 6:29 AM EDT): -- unable to palpate pedal pulses. No cyanosis -- bilateral foot rubra, suspect related to PAD, R>L. -- Arterial duplex of bilateral lower extremities: * Unable to obtain the bilateral PPG pressures secondary to absent waveforms. * The bilateral 1st-5th digit waveforms are absent. * Right: * Monophasic Doppler flow pattern is noted throughout the right lower extremity, suggestive of inflow disease. * There is a right proximal superficial femoral and anterior tibial artery lesion with 20-49% stenosis. * There is a right mid superficial femoral and distal anterior tibial artery lesion with 50-99% stenosis. * There is an occlusion in the right proximal profunda femoris artery. * Unable to obtain the right FERNIE secondary to calcinosis and non- compressibility. * Left: * There is a left mid superficial femoral artery lesion with 50-99% stenosis. * There is a left proximal and distal popliteal artery lesion with 20-49% stenosis. * There is an occlusion in the left distal posterior tibial artery. * Unable to obtain the left DPA FERNIE secondary to calcinosis and non- compressibility. -- Vascular surgery consulted -- IV heparin Assessment & Plan (01/15/2025 6:21 AM EDT): -- unable to palpate pedal pulses. No cyanosis -- bilateral foot rubra, suspect related to PAD, R>L. -- Arterial duplex of bilateral lower extremities: * Unable to obtain the bilateral PPG pressures secondary to absent waveforms. * The bilateral 1st-5th digit waveforms are absent. * Right: * Monophasic Doppler flow pattern is noted throughout the right lower extremity, suggestive of inflow disease. * There is a right proximal superficial femoral and anterior tibial artery lesion with 20-49% stenosis. * There is a right mid superficial femoral and distal anterior tibial artery lesion with 50-99% stenosis. * There is an occlusion in the right proximal profunda femoris artery. * Unable to obtain the right FERNIE secondary to calcinosis and non- compressibility. * Left: * There is a left mid superficial femoral artery lesion with 50-99% stenosis. * There is a left proximal and distal popliteal artery lesion with 20-49% stenosis. * There is an occlusion in the left distal posterior tibial artery. * Unable to obtain the left DPA FERNIE secondary to calcinosis and non- compressibility. -- Vascular surgery consulted -- IV heparin Assessment & Plan (01/15/2025 6:10 AM EDT): -- unable to palpate pedal pulses. No cyanosis -- bilateral foot rubra, suspect related to PAD, R>L. -- Arterial duplex of bilateral lower extremities: * Unable to obtain the bilateral PPG pressures secondary to absent waveforms. * The bilateral 1st-5th digit waveforms are absent. * Right: * Monophasic Doppler flow pattern is noted throughout the right lower extremity, suggestive of inflow disease. * There is a right proximal superficial femoral and anterior tibial artery lesion with 20-49% stenosis. * There is a right mid superficial femoral and distal anterior tibial artery lesion with 50-99% stenosis. * There is an occlusion in the right proximal profunda femoris artery. * Unable to obtain the right FERNIE secondary to calcinosis and non- compressibility. * Left: * There is a left mid superficial femoral artery lesion with 50-99% stenosis. * There is a left proximal and distal popliteal artery lesion with 20-49% stenosis. * There is an occlusion in the left distal posterior tibial artery. * Unable to obtain the left DPA FERNIE secondary to calcinosis and non- compressibility. -- Vascular surgery consulted -- IV heparin Assessment & Plan (01/12/2025 10:29 PM EDT): -- unable to palpate pedal pulses. No cyanosis -- bilateral foot rubra, suspect related to PAD, R>L. Elevated troponin 01/11/2025 Shortness of breath 01/11/2025 Preoperative cardiovascular examination 01/12/20 25 Chest pain, unspecified type // Elevated troponi n 01/10/2025 Assessment & Plan (06/23/2025 4:38 PM EDT): Trend Troponin Cards to see -Ranexa -Hx of CAD -Coreg Assessment & Plan (01/28/2025 9:59 AM EDT): Troponins were flat. Cards saw. No chest pain at present. Comfortable here Assessment & Plan (01/27/2025 2:14 PM EDT): Troponins were flat. Cards saw. No chest pain at present. Comfortable here Assessment & Plan (01/26/2025 12:09 PM EDT): Troponins were flat. Cards saw. No chest pain at present. Comfortable here Assessment & Plan (01/25/2025 12:22 PM EDT): Troponins were flat. Cards saw. No chest pain at present. Comfortable here Assessment & Plan (01/24/2025 9:38 AM EDT): Troponins were flat. Cards saw. No chest pain at present Assessment & Plan (01/23/2025 1:07 PM EDT): Troponins were flat. Cards saw. No chest pain at present Assessment & Plan (01/22/2025 10:03 AM EDT): Troponins were flat. Cards saw. No chest pain at present Assessment & Plan (01/21/2025 12:19 PM EDT): Troponins were flat. Cards saw. No chest pain at present Assessment & Plan (01/20/2025 2:21 PM EDT): Troponins were flat. Cards saw. No chest pain at present Assessment & Plan (01/19/2025 1:36 PM EDT): Troponins were flat. Cards saw. No chest pain at present Assessment & Plan (01/18/2025 1:04 PM EDT): Troponins were flat. Cards saw. No chest pain at present Assessment & Plan (01/17/2025 1:00 PM EDT): Troponins were flat. Cards saw. No chest pain at present Assessment & Plan (01/16/2025 9:59 AM EDT): Troponins were flat. Cards saw. No chest pain at present Assessment & Plan (01/15/2025 11:35 AM EDT): Troponins were flat. Cards saw. No chest pain at present Assessment & Plan (01/15/2025 6:29 AM EDT): -- history CAD and angina -- troponin elevated, 77 -> 76, not in pattern consistent with ACS -- history of elevated troponin. In setting of CKD -- Cardiology consulted -- Stress test with SPECT: Non-diagnostic stress ECG * No significant reversible perfusion defect. * Normal left ventricular size. * Post stress left ventricular ejection fraction is normal, 63 %. * Abnormal septal motion likely due to history of CABG. * Transient Ischemic Dilation is normal. -- No chest pain Assessment & Plan (01/15/2025 6:21 AM EDT): -- history CAD and angina -- troponin elevated, 77 -> 76, not in pattern consistent with ACS -- history of elevated troponin. In setting of CKD -- Cardiology consulted -- Stress test with SPECT: Non-diagnostic stress ECG * No significant reversible perfusion defect. * Normal left ventricular size. * Post stress left ventricular ejection fraction is normal, 63 %. * Abnormal septal motion likely due to history of CABG. * Transient Ischemic Dilation is normal. Assessment & Plan (01/15/2025 6:10 AM EDT): -- history CAD and angina -- troponin elevated, 77 -> 76, not in pattern consistent with ACS -- history of elevated troponin. In setting of CKD Assessment & Plan (01/12/2025 10:29 PM EDT): -- history CAD and angina -- troponin elevated, 77 -> 76, not in pattern consistent with ACS -- history of elevated troponin. In setting of CKD Acute on chronic heart failu re with preserved ejection fraction 06/04/2024 Assessment & Plan (06/23/2025 4:38 PM EDT): Admit as above Lasix -Cards eval -Trend BNP -Follow electrolytes and renal fxn on lasix Assessment & Plan (06/10/2025 5:51 PM EDT): - 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 - had been holding coreg for lower BPs - restart now with hold parameters as BP increased Assessment & Plan (06/09/2025 11:10 AM EDT): - 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 - had been holding coreg for lower BPs - restart now with hold parameters as BP increased Assessment & Plan (06/08/2025 11:33 AM EDT): - 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 - had been holding coreg for lower BPs - restart now with hold parameters as BP increased Assessment & Plan (06/07/2025 12:27 PM EDT): - 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 - had been holding coreg for lower BPs - restart now with hold parameters as BP increased Assessment & Plan (06/06/2025 3:47 PM EDT): - 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 - had been holding coreg for lower BPs - restart now with hold parameters as BP increased Assessment & Plan (06/05/2025 12:46 PM EDT): - 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 - had been holding coreg for lower BPs - restart now with hold parameters as BP increased Assessment & Plan (06/04/2025 1:59 PM EDT): - 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 - had been holding coreg for lower BPs - restart now with hold parameters as BP increased Assessment & Plan (06/03/2025 7:21 AM EDT): - echo as above - will repeat IV lasix again today Assessment & Plan (06/02/2025 9:53 AM EDT): - echo as above - will give another dose of iv lasix today Assessment & Plan (06/01/2025 9:51 AM EDT): - Echo 2023 normal EF. - Euvolemic on exam - repeat echo as above Assessment & Plan (05/31/2025 8:02 AM EDT): - Echo 2023 normal EF. - Euvolemic on exam - repeat echo as above Assessment & Plan (05/30/2025 11:39 AM EDT): - Echo 2023 normal EF. - Euvolemic on exam - repeat echo as above Assessment & Plan (05/29/2025 11:24 AM EDT): - Echo 2023 normal EF. - Euvolemic on exam - repeat echo as above Assessment & Plan (05/28/2025 8:08 AM EDT): - Echo 2023 normal EF. - Euvolemic on exam - repeat echo as above Assessment & Plan (05/27/2025 9:42 AM EDT): - Echo 2023 normal EF. - Euvolemic on exam - repeat echo pending Assessment & Plan (05/26/2025 9:50 AM EDT): - Echo 2023 normal EF. - Euvolemic on exam Assessment & Plan (05/25/2025 10:33 AM EDT): - Echo 2023 normal EF. - Euvolemic on exam Assessment & Plan (05/24/2025 7:56 AM EDT): - Echo 2023 normal EF. - Euvolemic on exam Assessment & Plan (05/23/2025 11:46 AM EDT): - Echo 2023 normal EF. - Euvolemic on exam Assessment & Plan (05/22/2025 10:29 AM EDT): - Echo 2023 normal EF. - Euvolemic on exam Assessment & Plan (05/21/2025 1:15 PM EDT): - Echo 2023 normal EF. - Euvolemic on exam Assessment & Plan (05/20/2025 12:54 PM EDT): Echo 2023 normal EF. 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 Euvolemic on exam - monitor I/O, daily weights - diuresis: WASHING MACHINE [employer]SEM[employer]ER lasix on hold - WASHING MACHINE [employer]SEM[employer]ER coreg -Stable 05/19/25 Assessment & Plan (05/18/2025 8:38 AM EDT): Echo 2023 normal EF. 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 Euvolemic on exam - monitor I/O, daily weights - diuresis: WASHING MACHINE ASSEM[employer]ER lasix on hold - WASHING MACHINE ASSEMBLER coreg -Stable 05/17/25 Assessment & Plan (05/16/2025 2:50 PM EDT): Echo 2023 normal EF. Euvolemic on exam - monitor I/O, daily weights - diuresis: WASHING MACHINE ASSEM[employer]ER lasix on hold - WASHING MACHINE ASSEMBLER coreg -Stable 05/16/25 Assessment & Plan (05/15/2025 2:22 PM EDT): Echo 2023 normal EF. Euvolemic on exam - monitor I/O, daily weights - diuresis: WASHING MACHINE ASSEM[employer]ER lasix on hold - WASHING MACHINE ASSEMBLER coreg -Stable 05/15/25 Assessment & Plan (05/14/2025 2:51 PM EDT): Echo 2023 normal EF. Euvolemic on exam - monitor I/O, daily weights - diuresis: WASHING MACHINE ASSEM[employer]ER lasix on hold - WASHING MACHINE ASSEMBLER coreg -Stable 05/14/25 Assessment & Plan (05/13/2025 9:08 AM EDT): Echo 2023 normal EF. 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 Euvolemic on exam - monitor I/O, daily weights - diuresis: WASHING MACHINE ASSEMBLER lasix on hold - WASHING MACHINE ASSEMBLER coreg Assessment & Plan (05/11/2025 7:12 AM EDT): Echo 2023 normal EF. Euvolemic on exam - monitor I/O, daily weights - diuresis: WASHING MACHINE ASSEMBLER lasix on hold - WASHING MACHINE ASSEMBLER coreg Assessment & Plan (05/10/2025 1:54 PM EDT): Echo 2023 normal EF. 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 Euvolemic on exam - monitor I/O, daily weights - diuresis: WASHING MACHINE ASSEMBLER lasix on hold - WASHING MACHINE ASSEMBLER coreg Assessment & Plan (05/07/2025 7:10 AM EDT): Echo 2023 normal EF. Euvolemic on exam - monitor I/O, daily weights - diuresis: WASHING MACHINE ASSEMBLER lasix on hold - WASHING MACHINE ASSEMBLER coreg Assessment & Plan (05/06/2025 9:31 AM EDT): Echo 2023 normal EF. Euvolemic on exam - monitor I/O, daily weights - diuresis: WASHING MACHINE ASSEMBLER lasix on hold - WASHING MACHINE ASSEMBLER coreg Assessment & Plan (05/05/2025 1:00 PM EDT): Echo 2023 normal EF. Euvolemic on exam - monitor I/O, daily weights - diuresis: WASHING MACHINE ASSEMBLER lasix on hold - WASHING MACHINE ASSEMBLER coreg Assessment & Plan (05/05/2025 12:57 PM EDT): Echo 2023 normal EF. Euvolemic on exam - monitor I/O, daily weights - diuresis: WASHING MACHINE ASSEMBLER lasix on hold - WASHING MACHINE ASSEMBLER coreg Assessment & Plan (05/03/2025 6:33 PM EDT): Echo 2023 normal EF Compensated 05/03/2025 Assessment & Plan (05/02/2025 5:52 PM EDT): 2023 normal EF Compensated 05/02/2025 Assessment & Plan (05/01/2025 5:56 PM EDT): Echo 2023 normal EF Compensated Assessment & Plan (04/30/2025 8:21 PM EDT): Echo 2023 normal EF Compensated Assessment & Plan (02/04/2025 11:33 AM EDT): Conservative Compensated Assessment & Plan (02/03/2025 9:49 AM EDT): Conservative Compensated Assessment & Plan (02/02/2025 10:28 AM EDT): Conservative Compensated Assessment & Plan (02/01/2025 12:25 PM EDT): Conservative Assessment & Plan (01/31/2025 11:51 AM EDT): Conservative Assessment & Plan (01/30/2025 1:30 PM EDT): Conservative Assessment & Plan (01/28/2025 9:59 AM EDT): Compensated at present Assessment & Plan (01/27/2025 2:14 PM EDT): Compensated at present Assessment & Plan (01/26/2025 12:09 PM EDT): Compensated at present Assessment & Plan (01/25/2025 12:22 PM EDT): Compensated at present Assessment & Plan (01/24/2025 9:38 AM EDT): Compensated at present Assessment & Plan (01/23/2025 1:07 PM EDT): Compensated at present Assessment & Plan (01/22/2025 10:03 AM EDT): Compensated at present Assessment & Plan (01/21/2025 12:19 PM EDT): Compensated at present Assessment & Plan (01/20/2025 2:21 PM EDT): Compensated at present Assessment & Plan (01/19/2025 1:36 PM EDT): Compensated at present Assessment & Plan (01/18/2025 1:04 PM EDT): Compensated at present Assessment & Plan (01/17/2025 1:00 PM EDT): Compensated at present Assessment & Plan (01/16/2025 9:59 AM EDT): Compensated at present Assessment & Plan (01/15/2025 11:35 AM EDT): Compensated at present Assessment & Plan (01/15/2025 6:29 AM EDT): -- 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 Continued -- appears compensated Assessment & Plan (01/15/2025 6:10 AM EDT): -- Lasix WASHING MACHINE [employer]SEMBLER. 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 Assessment & Plan (02/02/2025 10:28 AM EDT): PT OT Placement? Assessment & Plan (02/01/2025 12:25 PM EDT): PT when able Assessment & Plan (01/31/2025 11:51 AM EDT): PT when able Assessment & Plan (01/30/2025 1:30 PM EDT): PT when able Hyperkalemia 06/04/2024 Gastroesophageal reflux disease without esophagi tis 06/04/2024 Assessment & Plan (02/04/2025 11:33 AM EDT): PPI Assessment & Plan (02/03/2025 9:49 AM EDT): PPI Assessment & Plan (02/02/2025 10:28 AM EDT): PPI Assessment & Plan (02/01/2025 12:25 PM EDT): PPI Assessment & Plan (01/31/2025 11:51 AM EDT): PPI Assessment & Plan (01/30/2025 1:30 PM EDT): PPI Mood disorder 06/04/2024 Closed nondisplaced intertro chanteric fracture of right femur with routine healing 03/20/2024 History of pulmonary embolus (PE) 03/14/2024 Assessment & Plan (06/23/2025 4:38 PM EDT): No current AC -hx Sub Arachnoid bleed Cervical spondylosis without myelopathy 03/14/20 Irritable bowel syndrome 03/14/2024 DANTE (obstructive sleep apnea) 03/14/2024 Steatosis of liver 03/14/2024 Temporal arteritis 03/14/2024 Fall 01/22/2024 Overview (06/04/2024): SGT admit SGT admit Diverticulosis 01/22/2024 Overview (01/12/2025): Incidental finding Diverticulosis without acute diverticulitis Outpatient management Emphysema lung 01/22/2024 Overview (01/12/2025): Known history No supplemental O2 use at home 02@2L NC; Wean as able Assessment & Plan (01/28/2025 9:59 AM EDT): Stable at present Assessment & Plan (01/27/2025 2:14 PM EDT): Stable at present Assessment & Plan (01/26/2025 12:09 PM EDT): Stable at present Assessment & Plan (01/25/2025 12:22 PM EDT): Stable at present Assessment & Plan (01/24/2025 9:38 AM EDT): Stable at present Assessment & Plan (01/23/2025 1:07 PM EDT): Stable at present Assessment & Plan (01/22/2025 10:03 AM EDT): Stable at present Assessment & Plan (01/21/2025 12:19 PM EDT): Stable at present Assessment & Plan (01/20/2025 2:21 PM EDT): Stable at present Assessment & Plan (01/19/2025 1:36 PM EDT): Stable at present Assessment & Plan (01/18/2025 1:04 PM EDT): Stable at present Assessment & Plan (01/17/2025 1:00 PM EDT): Stable at present Assessment & Plan (01/16/2025 9:59 AM EDT): Stable at present Assessment & Plan (01/15/2025 11:35 AM EDT): Stable at present Assessment & Plan (01/15/2025 6:29 AM EDT): -- Albuterol as needed -- No acute issues >> Stable Assessment & Plan (01/15/2025 6:21 AM EDT): -- Albuterol as needed -- No acute issues Assessment & Plan (01/15/2025 6:10 AM EDT): -- Albuterol as needed Degenerative arthritis 01/22/2024 Overview (01/12/2025): -Incidental finding -Follow up with pcp for surveillance Splenic lesion 01/22/2024 Overview (01/12/2025): Multiple hypodense Incidental finding Outpatient management Thrombocytopenia 01/22/2024 Overview (01/12/2025): CTM Assessment & Plan (01/28/2025 9:59 AM EDT): No sign of bleeding. Stable Lab Results Component Value Date PLT 96 (L) 01/27/2025 Assessment & Plan (01/27/2025 2:14 PM EDT): No sign of bleeding. Stable Lab Results Component Value Date PLT 96 (L) 01/27/2025 Assessment & Plan (01/26/2025 12:09 PM EDT): No sign of bleeding. Stable Lab Results Component Value Date PLT 88 (L) 01/25/2025 Assessment & Plan (01/25/2025 12:22 PM EDT): No sign of bleeding. Stable Lab Results Component Value Date PLT 88 (L) 01/25/2025 Assessment & Plan (01/24/2025 9:38 AM EDT): No sign of bleeding. Stable Lab Results Component Value Date PLT 76 (L) 01/23/2025 Assessment & Plan (01/23/2025 1:07 PM EDT): No sign of bleeding. Still low. Lab Results Component Value Date PLT 76 (L) 01/23/2025 Assessment & Plan (01/22/2025 10:03 AM EDT): No sign of bleeding. Still low. Lab Results Component Value Date PLT 62 (L) 01/21/2025 Assessment & Plan (01/21/2025 12:19 PM EDT): No sign of bleeding. Still low. Lab Results Component Value Date PLT 62 (L) 01/21/2025 Assessment & Plan (01/20/2025 2:21 PM EDT): No sign of bleeding. Still low. Lab Results Component Value Date PLT 51 (L) 01/19/2025 Assessment & Plan (01/19/2025 1:36 PM EDT): No sign of bleeding. Still low. Lab Results Component Value Date PLT 51 (L) 01/19/2025 Assessment & Plan (01/18/2025 1:04 PM EDT): -- chronic -- baseline Plts 110-120s >> 122 on admission with >> 109 >> 106 >> 98 >>85 > 69 today -- no signs of bleeding Lab Results Component Value Date PLT 64 (L) 01/17/2025 Assessment & Plan (01/17/2025 1:00 PM EDT): -- chronic -- baseline Plts 110-120s >> 122 on admission with >> 109 >> 106 >> 98 >>85 > 69 today -- no signs of bleeding Lab Results Component Value Date PLT 64 (L) 01/17/2025 Assessment & Plan (01/16/2025 9:59 AM EDT): -- chronic -- baseline Plts 110-120s >> 122 on admission with >> 109 >> 106 >> 98 >>85 -- no signs of bleeding Lab Results Component Value Date PLT 85 (L) 01/15/2025 Assessment & Plan (01/15/2025 11:35 AM EDT): -- chronic -- baseline Plts 110-120s >> 122 on admission with >> 109 >> 106 >> 98 >>85 -- no signs of bleeding Lab Results Component Value Date PLT 85 (L) 01/15/2025 Assessment & Plan (01/15/2025 6:29 AM EDT): -- chronic -- baseline Plts 110-120s >> 122 on admission with >> 109 >> 106 >> 9.8 -- no signs of bleeding Disequilibrium // slow mentation -- CT head: No acute intracranial process. 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 -- Ammonia level normal. Lactic acid normal. VBG unremarkable. TSH 8.84, free T41.37. B12 normal. Folate normal. -- U-A unremarkable -- Symptoms improved Assessment & Plan (01/15/2025 6:21 AM EDT): -- chronic -- baseline Plts 110-120s >> 122 on admission with >> 109 >> 106 >> 9.8 -- no signs of bleeding Disequilibrium // slow mentation -- CT head: No acute intracranial process. 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 -- Ammonia level normal. Lactic acid normal. VBG unremarkable. TSH 8.84, free T41.37. B12 normal. Folate normal. -- U-A unremarkable -- Symptoms improved Assessment & Plan (01/15/2025 6:10 AM EDT): -- chronic -- baseline Plts 110-120s >> 122 on admission with >> 109 >> 106 -- no signs of bleeding Disequilibrium // slow mentation Assessment & Plan (01/12/2025 10:29 PM EDT): -- chronic -- baseline Plts 110-120s >> 122 on admission -- no signs of bleeding Focal hemorrhagic contusion of cerebrum 01/21/20 Overview (01/12/2025): NSGY consulted - Repeat CTH revealed interval [...] (POAG) of both eyes, severe stage 11/26/2023 Paroxysmal atrial fibrillation 04/28/2023 Overview (06/04/2024): - Warfarin reversed with vitamin K - Currently rate controled - Home coreg resumed Holding AC/AP x 2 weeks (Resume 02/01) due to head bleed (recommend risk v benefit discussion prior to resuming due to repeat falls) Assessment & Plan (06/10/2025 5:51 PM EDT): - 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 - had been holding coreg for lower BPs - restart now with hold parameters as BP increased Assessment & Plan (06/09/2025 11:10 AM EDT): - 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 - had been holding coreg for lower BPs - restart now with hold parameters as BP increased Assessment & Plan (06/08/2025 11:33 AM EDT): - 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 - had been holding coreg for lower BPs - restart now with hold parameters as BP increased Assessment & Plan (06/07/2025 12:27 PM EDT): - 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 - had been holding coreg for lower BPs - restart now with hold parameters as BP increased Assessment & Plan (06/06/2025 3:47 PM EDT): - 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 - had been holding coreg for lower BPs - restart now with hold parameters as BP increased Assessment & Plan (06/05/2025 12:46 PM EDT): - 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 - had been holding coreg for lower BPs - restart now with hold parameters as BP increased Assessment & Plan (06/04/2025 1:59 PM EDT): - 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 - had been holding coreg for lower BPs - restart now with hold parameters as BP increased Assessment & Plan (06/03/2025 7:21 AM EDT): - 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 - had been holding coreg for lower BPs - restart now with hold parameters as BP increased Assessment & Plan (06/02/2025 9:53 AM EDT): - 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 - holding coreg for lower BPs Assessment & Plan (06/01/2025 9:51 AM EDT): - 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 - holding coreg for lower BPs Assessment & Plan (05/31/2025 8:02 AM EDT): - 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 - holding coreg for lower BPs Assessment & Plan (05/30/2025 11:39 AM EDT): - 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 - rate controlled on coreg Assessment & Plan (05/29/2025 11:24 AM EDT): - 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 - rate controlled on coreg Assessment & Plan (05/28/2025 8:08 AM EDT): - 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 - rate controlled on coreg Assessment & Plan (05/27/2025 9:42 AM EDT): - 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 - rate controlled on coreg Assessment & Plan (05/26/2025 9:50 AM EDT): - 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 - rate controlled on coreg Assessment & Plan (05/25/2025 10:33 AM EDT): - 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 - rate controlled on coreg Assessment & Plan (05/24/2025 7:56 AM EDT): - 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 - rate controlled on coreg Assessment & Plan (05/23/2025 11:46 AM EDT): - 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 - rate controlled on coreg Assessment & Plan (05/22/2025 10:29 AM EDT): - 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 - rate controlled on coreg Assessment & Plan (05/21/2025 1:15 PM EDT): - Heart rate controlled. - 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 - WASHING MACHINE [employer]SEMBLER coreg Assessment & Plan (05/20/2025 12:54 PM EDT): Heart rate controlled. 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 - WASHING MACHINE ASSEMBLER coreg - cardiac monitoring -Rate controlled 05/20/25 Assessment & Plan (05/19/2025 11:25 AM EDT): Heart rate controlled. 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 - WASHING MACHINE ASSEMBLER coreg - cardiac monitoring -Rate controlled 05/19/25 Assessment & Plan (05/18/2025 8:38 AM EDT): Heart rate controlled. 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 - WASHING MACHINE ASSEMBLER coreg - cardiac monitoring -Rate controlled 05/18/25 Assessment & Plan (05/17/2025 9:16 AM EDT): Heart rate controlled. 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 - WASHING MACHINE ASSEMBLER coreg - cardiac monitoring -Rate controlled 05/17/25 Assessment & Plan (05/16/2025 2:50 PM EDT): Heart rate controlled. 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 - WASHING MACHINE ASSEMBLER coreg - cardiac monitoring -Rate controlled 05/16/25 Assessment & Plan (05/15/2025 2:22 PM EDT): Heart rate controlled. 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 - WASHING MACHINE ASSEMBLER coreg - cardiac monitoring -Heart rate 94 Assessment & Plan (05/14/2025 10:10 AM EDT): Heart rate controlled. 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 - WASHING MACHINE ASSEMBLER coreg - cardiac monitoring -Heart rate 94 Assessment & Plan (05/13/2025 1:41 PM EDT): Heart rate controlled. Not on AC d/t hx of SAH - WASHING MACHINE ASSEMBLER coreg - cardiac monitoring -Heart rate 94 Assessment & Plan (05/12/2025 10:17 AM EDT): Heart rate controlled. Not on AC d/t hx of SAH - WASHING MACHINE ASSEMBLER coreg - cardiac monitoring -Heart rate 83 Assessment & Plan (05/11/2025 11:59 AM EDT): Heart rate controlled. Not on AC d/t hx of SAH - WASHING MACHINE ASSEMBLER coreg - cardiac monitoring -Heart rate 98 Assessment & Plan (05/10/2025 1:54 PM EDT): Heart rate controlled. Not on AC d/t hx of SAH - WASHING MACHINE ASSEMBLER coreg - cardiac monitoring -Heart rate 83 Assessment & Plan (05/09/2025 10:25 AM EDT): Heart rate controlled. Not on AC d/t hx of SAH - WASHING MACHINE ASSEMBLER coreg - cardiac monitoring -Heart rate 75 Assessment & Plan (05/08/2025 1:05 PM EDT): Heart rate controlled. Not on AC d/t hx of SAH - WASHING MACHINE ASSEMBLER coreg - cardiac monitoring -Heart rate 80 Assessment & Plan (05/07/2025 2:02 PM EDT): Heart rate controlled. Not on AC d/t hx of SAH - WASHING MACHINE ASSEMBLER coreg - cardiac monitoring -Heart rate 81 Assessment & Plan (05/06/2025 9:31 AM EDT): Heart rate controlled. Not on AC d/t hx of SAH - WASHING MACHINE ASSEMBLER coreg - cardiac monitoring Assessment & Plan (05/05/2025 1:00 PM EDT): Heart rate controlled. Not on AC d/t hx of SAH - WASHING MACHINE ASSEMBLER coreg - cardiac monitoring Assessment & Plan (05/05/2025 12:57 PM EDT): Heart rate controlled. Not on AC d/t hx of SAH - WASHING MACHINE ASSEMBLER coreg - cardiac monitoring Assessment & Plan (05/03/2025 6:33 PM EDT): Heart rate controlled Resume Coreg, not on AC due to history of SAH Assessment & Plan (05/02/2025 5:52 PM EDT): Heart rate controlled Resume Coreg, not on AC due to history of SAH Assessment & Plan (05/01/2025 5:56 PM EDT): Heart rate elevated on arrival improving Resume Coreg, not on AC due to history of SAH Assessment & Plan (04/30/2025 11:26 PM EDT): Heart rate elevated on arrival improving Resume Coreg, not on AC due to history of SAH Assessment & Plan (02/04/2025 11:33 AM EDT): Rate controlled Discussed with the patient, 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 Deferred to outpatient PCP, cardiology Assessment & Plan (02/01/2025 12:25 PM EDT): Rate controlled Assessment & Plan (01/31/2025 11:51 AM EDT): Rate controlled Assessment & Plan (01/30/2025 1:30 PM EDT): Rate controlled Assessment & Plan (01/28/2025 9:59 AM EDT): Regular now Assessment & Plan (01/27/2025 2:14 PM EDT): Regular now Assessment & Plan (01/26/2025 12:09 PM EDT): Regular now Assessment & Plan (01/25/2025 12:22 PM EDT): Regular now Assessment & Plan (01/24/2025 9:38 AM EDT): Regular now Assessment & Plan (01/23/2025 1:07 PM EDT): Regular now Assessment & Plan (01/22/2025 10:03 AM EDT): Regular now Assessment & Plan (01/21/2025 12:19 PM EDT): Regular now Assessment & Plan (01/20/2025 2:21 PM EDT): Regular now Assessment & Plan (01/19/2025 1:36 PM EDT): Regular now Assessment & Plan (01/18/2025 1:04 PM EDT): Regular now Assessment & Plan (01/17/2025 1:00 PM EDT): Regular now Assessment & Plan (01/16/2025 9:59 AM EDT): Regular now Assessment & Plan (01/15/2025 11:35 AM EDT): Regular now Assessment & Plan (01/15/2025 6:29 AM EDT): -- Coreg, ASA WASHING MACHINE ASSEMBLER. Continued -- Not on anticoagulation due to his history of subarachnoid hemorrhage and fall risk -- In and out of atrial fibrillation. Assessment & Plan (01/15/2025 6:21 AM EDT): -- Coreg, ASA WASHING MACHINE ASSEMBLER. Continued -- Not on anticoagulation due to his history of subarachnoid hemorrhage and fall risk -- In and out of atrial fibrillation. Assessment & Plan (01/15/2025 6:10 AM EDT): -- Coreg, ASA WASHING MACHINE ASSEMBLER. Continued -- Not on anticoagulation due to his history of subarachnoid hemorrhage and fall risk -- In and out of atrial fibrillation. Assessment & Plan (01/12/2025 10:29 PM EDT): -- Coreg, ASA W[employer]ING MACHINE ASSEMBLER Carotid stenosis, symptomatic w/o infarct, bilat eral 04/28/2023 Overview (01/12/2025): Last Assessment & Plan: Carotid duplex from 05/10/2023- bilateral carotid artery stenosis (50-69%). A referral to CT surgery was sent by Shannon Flor APRN at last office visit. She is scheduled to see Dr. Alcantara on 06/06/2023. Assessment & Plan (01/28/2025 9:59 AM EDT): -- ASA, Lipitor WASHING MACHINE ASSEMBLER. Continued. Following Assessment & Plan (01/27/2025 2:14 PM EDT): -- ASA, Lipitor WASHING MACHINE ASSEMBLER. Continued. Following Assessment & Plan (01/26/2025 12:09 PM EDT): -- ASA, Lipitor WASHING MACHINE ASSEMBLER. Continued. Following Assessment & Plan (01/25/2025 12:22 PM EDT): -- ASA, Lipitor WASHING MACHINE ASSEMBLER. Continued. Following Assessment & Plan (01/24/2025 9:38 AM EDT): -- ASA, Lipitor WASHING MACHINE ASSEMBLER. Continued. Following Assessment & Plan (01/23/2025 1:07 PM EDT): -- ASA, Lipitor WASHING MACHINE ASSEMBLER. Continued. Following Assessment & Plan (01/22/2025 10:03 AM EDT): -- ASA, Lipitor WASHING MACHINE ASSEMBLER. Continued. Following Assessment & Plan (01/21/2025 12:19 PM EDT): -- ASA, Lipitor WASHING MACHINE ASSEMBLER. Continued. Following Assessment & Plan (01/20/2025 2:21 PM EDT): -- ASA, Lipitor WASHING MACHINE ASSEMBLER. Continued. Following Assessment & Plan (01/19/2025 1:36 PM EDT): -- ASA, Lipitor WASHING MACHINE ASSEMBLER. Continued. Following Assessment & Plan (01/18/2025 1:04 PM EDT): -- ASA, Lipitor WASHING MACHINE ASSEMBLER. Continued. Following Assessment & Plan (01/17/2025 1:00 PM EDT): -- ASA, Lipitor WASHING MACHINE ASSEMBLER. Continued. Following Assessment & Plan (01/16/2025 9:59 AM EDT): -- ASA, Lipitor WASHING MACHINE ASSEMBLER. Continued. Following Assessment & Plan (01/15/2025 11:35 AM EDT): -- ASA, Lipitor WASHING MACHINE ASSEMBLER. Continued. Following Assessment & Plan (01/15/2025 6:29 AM EDT): -- ASA, Lipitor WASHING MACHINE ASSEMBLER. 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 Overview (06/04/2024): From Automated Load;Provider: Leonardo Mccormack;Status: Active Assessment & Plan (06/10/2025 5:51 PM EDT): Asa , statin and renexa Assessment & Plan (06/09/2025 11:10 AM EDT): Asa , statin and renexa Assessment & Plan (06/08/2025 11:33 AM EDT): Asa , statin and renexa Assessment & Plan (06/07/2025 12:27 PM EDT): Asa , statin and renexa Assessment & Plan (06/06/2025 3:47 PM EDT): Asa , statin and renexa Assessment & Plan (06/05/2025 12:46 PM EDT): Asa , statin and renexa Assessment & Plan (06/04/2025 1:59 PM EDT): Asa , statin and renexa Assessment & Plan (06/03/2025 7:21 AM EDT): - History of CABG - continue lipitor, coreg, ranexa - no chest pain Assessment & Plan (06/02/2025 9:53 AM EDT): - History of CABG - continue lipitor, coreg, ranexa - no chest pain Assessment & Plan (06/01/2025 9:51 AM EDT): - History of CABG - continue lipitor, coreg, ranexa - no chest pain Assessment & Plan (05/31/2025 8:02 AM EDT): - History of CABG - continue lipitor, coreg, ranexa - no chest pain Assessment & Plan (05/30/2025 11:39 AM EDT): - History of CABG - continue lipitor, coreg, ranexa - no chest pain Assessment & Plan (05/29/2025 11:24 AM EDT): - History of CABG - continue lipitor, coreg, ranexa - no chest pain Assessment & Plan (05/28/2025 8:08 AM EDT): - History of CABG - continue lipitor, coreg, ranexa - no chest pain Assessment & Plan (05/27/2025 9:42 AM EDT): - History of CABG - continue lipitor, coreg, ranexa - no chest pain Assessment & Plan (05/26/2025 9:50 AM EDT): - History of CABG - continue lipitor, coreg, ranexa - no chest pain Assessment & Plan (05/25/2025 10:33 AM EDT): - History of CABG - continue lipitor, coreg, ranexa - no chest pain Assessment & Plan (05/24/2025 7:56 AM EDT): - History of CABG - continue lipitor, coreg, ranexa - no chest pain Assessment & Plan (05/23/2025 11:46 AM EDT): - History of CABG - continue lipitor, coreg, ranexa - no chest pain Assessment & Plan (05/22/2025 10:29 AM EDT): - History of CABG - continue lipitor, coreg, ranexa - no chest pain Assessment & Plan (05/21/2025 1:15 PM EDT): - History of CABG - continue lipitor, coreg, ranexa - no chest pain Assessment & Plan (05/20/2025 12:54 PM EDT): History of CABG - continue lipitor, coreg, ranexa Assessment & Plan (05/19/2025 11:25 AM EDT): History of CABG - continue lipitor, coreg, ranexa Assessment & Plan (05/18/2025 8:38 AM EDT): History of CABG - continue lipitor, coreg, ranexa Assessment & Plan (05/17/2025 1:37 PM EDT): History of CABG - continue lipitor, coreg, ranexa Assessment & Plan (05/16/2025 2:50 PM EDT): History of CABG - continue lipitor, coreg, ranexa - cardiac monitoring Assessment & Plan (05/15/2025 2:22 PM EDT): History of CABG - continue lipitor, coreg, ranexa - cardiac monitoring Assessment & Plan (05/14/2025 10:10 AM EDT): History of CABG - continue lipitor, coreg, ranexa - cardiac monitoring Assessment & Plan (05/13/2025 9:08 AM EDT): History of CABG - continue lipitor, coreg, ranexa - cardiac monitoring Assessment & Plan (05/12/2025 10:17 AM EDT): History of CABG - continue lipitor, coreg, ranexa - cardiac monitoring Assessment & Plan (05/11/2025 7:12 AM EDT): History of CABG - continue lipitor, coreg, ranexa - cardiac monitoring Assessment & Plan (05/10/2025 1:54 PM EDT): History of CABG - continue lipitor, coreg, ranexa - cardiac monitoring Assessment & Plan (05/09/2025 7:00 AM EDT): History of CABG - continue lipitor, coreg, ranexa - cardiac monitoring Assessment & Plan (05/08/2025 6:56 AM EDT): History of CABG - continue lipitor, coreg, ranexa - cardiac monitoring Assessment & Plan (05/07/2025 7:10 AM EDT): History of CABG - continue lipitor, coreg, ranexa - cardiac monitoring Assessment & Plan (05/06/2025 9:31 AM EDT): History of CABG - continue lipitor, coreg, ranexa - cardiac monitoring Assessment & Plan (05/05/2025 1:00 PM EDT): History of CABG - continue lipitor, coreg, ranexa - cardiac monitoring Assessment & Plan (05/05/2025 12:57 PM EDT): History of CABG - continue lipitor, coreg, ranexa - cardiac monitoring Assessment & Plan (05/03/2025 6:33 PM EDT): History of CABG, no chest pain Assessment & Plan (05/02/2025 5:52 PM EDT): History of CABG no chest pain Assessment & Plan (05/01/2025 5:56 PM EDT): History of CABG no chest pain Assessment & Plan (04/30/2025 8:21 PM EDT): History of CABG no chest pain Assessment & Plan (02/04/2025 11:33 AM EDT): Aspirin, statin Plavix Continue statin Continue beta-melinda Denies any anginal pain Assessment & Plan (02/03/2025 9:49 AM EDT): Aspirin, statin Plavix Continue statin Continue beta-melinda Denies any anginal pain Assessment & Plan (02/02/2025 10:28 AM EDT): Aspirin, statin Plavix Continue statin Continue beta-melinda Denies any anginal pain Assessment & Plan (02/01/2025 12:25 PM EDT): Aspirin, restart Plavix Assessment & Plan (01/31/2025 11:51 AM EDT): Aspirin Plavix on hold for the procedure Assessment & Plan (01/30/2025 1:30 PM EDT): Aspirin Plavix on hold for the procedure Assessment & Plan (01/28/2025 9:59 AM EDT): Continue home meds Assessment & Plan (01/27/2025 2:14 PM EDT): Continue home meds Assessment & Plan (01/26/2025 12:09 PM EDT): Continue home meds Assessment & Plan (01/25/2025 12:22 PM EDT): Continue home meds Assessment & Plan (01/24/2025 9:38 AM EDT): Continue home meds Assessment & Plan (01/23/2025 1:07 PM EDT): Continue home meds Assessment & Plan (01/22/2025 10:03 AM EDT): Continue home meds Assessment & Plan (01/21/2025 12:19 PM EDT): Continue home meds Assessment & Plan (01/20/2025 2:21 PM EDT): Continue home meds Assessment & Plan (01/19/2025 1:36 PM EDT): Continue home meds Assessment & Plan (01/18/2025 1:04 PM EDT): Continue home meds Assessment & Plan (01/17/2025 1:00 PM EDT): Continue home meds Assessment & Plan (01/16/2025 9:59 AM EDT): Continue home meds Assessment & Plan (01/15/2025 11:35 AM EDT): Continue home meds Assessment & Plan (01/15/2025 6:29 AM EDT): -- Coreg, Lipitor, ASA, Ran[place] WASHING MACHINE ASSEMBLER. Continued Assessment & Plan (01/15/2025 6:21 AM EDT): -- Coreg, Lipitor, ASA, [place] W[employer]ING MACHINE ASSEMBLER. Continued Assessment & Plan (01/15/2025 6:10 AM EDT): -- Coreg, Lipitor, ASA, [place] WASHING MACHINE ASSEMBLER. Continued -- CP -- Cardiology consulted -- Stress test with SPECT: Non-diagnostic stress ECG * No significant reversible perfusion defect. * Normal left ventricular size. * Post stress left ventricular ejection fraction is normal, 63 %. * Abnormal septal motion likely due to history of CABG. * Transient Ischemic Dilation is normal. 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) Assessment & Plan (06/09/2025 11:10 AM EDT): - Wound dehiscence over previous left TMA [...] encephalopathy, adjusting meds on real time basis Assessment & Plan (06/08/2025 11:33 AM EDT): - Wound dehiscence over previous left TMA [...] encephalopathy, adjusting meds on real time basis Assessment & Plan (06/07/2025 12:27 PM EDT): - Wound dehiscence over previous left TMA [...] encephalopathy, adjusting meds on real time basis Assessment & Plan (06/06/2025 3:47 PM EDT): - Wound dehiscence over previous left TMA [...] encephalopathy, adjusting meds on real time basis Assessment & Plan (06/05/2025 12:46 PM EDT): - Wound dehiscence over previous left TMA [...] encephalopathy, adjusting meds on real time basis Assessment & Plan (06/04/2025 1:59 PM EDT): - Wound dehiscence over previous left TMA [...] 8/8 - pain controlled on oral meds Assessment & Plan (06/03/2025 7:21 AM EDT): - A1c 5.3 - diet controlled - not following FSBS Assessment & Plan (06/02/2025 9:53 AM EDT): - A1c 5.3 - diet controlled - not following FSBS Assessment & Plan (06/01/2025 9:51 AM EDT): - A1c 5.3 - diet controlled - not following FSBS Assessment & Plan (05/31/2025 8:02 AM EDT): - A1c 5.3 - diet controlled - not following FSBS Assessment & Plan (05/30/2025 11:39 AM EDT): - A1c 5.3 - diet controlled - not following FSBS Assessment & Plan (05/29/2025 11:24 AM EDT): - A1c 5.3 - diet controlled - not following FSBS Assessment & Plan (05/28/2025 8:08 AM EDT): - A1c 5.3 - diet controlled - not following FSBS Assessment & Plan (05/27/2025 9:42 AM EDT): - A1c 5.3 - diet controlled - not following FSBS Assessment & Plan (05/26/2025 9:50 AM EDT): - A1c 5.3 - diet controlled - not following FSBS Assessment & Plan (05/25/2025 10:33 AM EDT): - A1c 5.3 - diet controlled - not following FSBS Assessment & Plan (05/24/2025 7:56 AM EDT): - A1c 5.3 - diet controlled - not following FSBS Assessment & Plan (05/23/2025 11:46 AM EDT): - A1c 5.3 - diet controlled - not following FSBS Assessment & Plan (05/22/2025 10:29 AM EDT): - A1c 5.3 - diet controlled - not following FSBS Assessment & Plan (05/21/2025 1:15 PM EDT): - A1c 5.3 - diet controlled - not following FSBS Assessment & Plan (05/20/2025 12:54 PM EDT): Last A1c 4.8 in 03/2024. WASHING MACHINE ASSEMBLER meds include none. - hold off on FSBS, correctional algorithm - rpt A1c 5.3 - stable 05/20/25 Assessment & Plan (05/19/2025 3:11 PM EDT): Last A1c 4.8 in 03/2024. WASHING MACHINE ASSEMBLER meds include none. - hold off on FSBS, correctional algorithm - rpt A1c 5.3 - stable 05/19/25 Assessment & Plan (05/18/2025 8:38 AM EDT): Last A1c 4.8 in 03/2024. WASHING MACHINE ASSEMBLER meds include none. - hold off on FSBS, correctional algorithm - rpt A1c 5.3 Assessment & Plan (05/17/2025 9:16 AM EDT): Last A1c 4.8 in 03/2024. WASHING MACHINE ASSEMBLER meds include none. - hold off on FSBS, correctional algorithm - rpt A1c 5.3 Assessment & Plan (05/16/2025 2:50 PM EDT): Last A1c 4.8 in 03/2024. WASHING MACHINE ASSEMBLER meds include none. - hold off on FSBS, correctional algorithm - rpt A1c 5.3 Assessment & Plan (05/15/2025 2:22 PM EDT): Last A1c 4.8 in 03/2024. WASHING MACHINE ASSEMBLER meds include none. - hold off on FSBS, correctional algorithm - rpt A1c 5.3 Assessment & Plan (05/14/2025 10:10 AM EDT): Last A1c 4.8 in 03/2024. WASHING MACHINE ASSEMBLER meds include none. - hold off on FSBS, correctional algorithm - rpt A1c 5.3 Assessment & Plan (05/13/2025 9:08 AM EDT): Last A1c 4.8 in 03/2024. WASHING MACHINE ASSEMBLER meds include none. - hold off on FSBS, correctional algorithm - rpt A1c 5.3 Assessment & Plan (05/12/2025 10:17 AM EDT): Last A1c 4.8 in 03/2024. WASHING MACHINE ASSEMBLER meds include none. - hold off on FSBS, correctional algorithm - rpt A1c 5.3 Assessment & Plan (05/11/2025 7:12 AM EDT): Last A1c 4.8 in 03/2024. WASHING MACHINE ASSEMBLER meds include none. - hold off on FSBS, correctional algorithm - rpt A1c 5.3 Assessment & Plan (05/10/2025 1:54 PM EDT): Last A1c 4.8 in 03/2024. WASHING MACHINE ASSEMBLER meds include none. - hold off on FSBS, correctional algorithm - rpt A1c 5.3 Assessment & Plan (05/09/2025 7:00 AM EDT): Last A1c 4.8 in 03/2024. WASHING MACHINE ASSEMBLER meds include none. - hold off on FSBS, correctional algorithm - rpt A1c 5.3 Assessment & Plan (05/08/2025 6:56 AM EDT): Last A1c 4.8 in 03/2024. WASHING MACHINE ASSEMBLER meds include none. - hold off on FSBS, correctional algorithm - rpt A1c 5.3 Assessment & Plan (05/07/2025 7:10 AM EDT): Last A1c 4.8 in 03/2024. WASHING MACHINE ASSEMBLER meds include none. - hold off on FSBS, correctional algorithm - rpt A1c 5.3 Assessment & Plan (05/06/2025 9:31 AM EDT): Last A1c 4.8 in 03/2024. WASHING MACHINE ASSEMBLER meds include none. - hold off on FSBS, correctional algorithm - rpt A1c 5.3 Assessment & Plan (05/05/2025 1:00 PM EDT): Last A1c 4.8 in 03/2024. WASHING MACHINE ASSEMBLER meds include none. - hold off on FSBS, correctional algorithm - note metformin started - will stop given plans for angiogram this week - rpt A1c ordered Assessment & Plan (05/05/2025 12:57 PM EDT): Last A1c 4.8 in 03/2024. WASHING MACHINE ASSEMBLER meds include none. 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 Continued home meds Assessment & Plan (01/27/2025 2:14 PM EDT): -- Lipitor WASHING MACHINE ASSEMBLER. Continued home meds Assessment & Plan (01/26/2025 12:09 PM EDT): -- Lipitor WASHING MACHINE ASSEMBLER. Continued home meds Assessment & Plan (01/25/2025 12:22 PM EDT): -- Lipitor WASHING MACHINE ASSEMBLER. Continued home meds Assessment & Plan (01/24/2025 9:38 AM EDT): -- Lipitor WASHING MACHINE ASSEMBLER. Continued home meds Assessment & Plan (01/23/2025 1:07 PM EDT): -- Lipitor WASHING MACHINE ASSEMBLER. Continued home meds Assessment & Plan (01/22/2025 10:03 AM EDT): -- Lipitor WASHING MACHINE ASSEMBLER. Continued home meds Assessment & Plan (01/21/2025 12:19 PM EDT): -- Lipitor WASHING MACHINE ASSEMBLER. Continued home meds Assessment & Plan (01/20/2025 2:21 PM EDT): -- Lipitor WASHING MACHINE ASSEMBLER. Continued home meds Assessment & Plan (01/19/2025 1:36 PM EDT): -- Lipitor WASHING MACHINE ASSEMBLER. Continued home meds Assessment & Plan (01/18/2025 1:04 PM EDT): -- Lipitor WASHING MACHINE ASSEMBLER. Continued home meds Assessment & Plan (01/17/2025 1:00 PM EDT): -- Lipitor WASHING MACHINE ASSEMBLER. Continued home meds Assessment & Plan (01/16/2025 9:59 AM EDT): -- Lipitor WASHING MACHINE ASSEMBLER. Continued home meds Assessment & Plan (01/15/2025 11:35 AM EDT): -- Lipitor WASHING MACHINE ASSEMBLER. Continued home meds Assessment & Plan (01/15/2025 6:29 AM EDT): -- Lipitor WASHING MACHINE ASSEMBLER. Continued Assessment & Plan (01/15/2025 6:21 AM EDT): -- Lipitor WASHING MACHINE ASSEMBLER Assessment & Plan (01/15/2025 6:10 AM EDT): -- Lipitor WASHING MACHINE ASSEMBLER Assessment & Plan (01/12/2025 10:29 PM EDT): -- Lipitor WASHING MACHINE ASSEMBLER Hypertension associated with diabetes 09/30/2014 Overview (06/04/2024): Last Assessment & Plan: Hypertension is well controlled . Continue current treatment regimen. Blood pressure will be reassessed at the next regular appointment. -Resume home medication when appropriate Assessment & Plan (06/23/2025 4:38 PM EDT): Coreg -Recent A1C 5.4 -DM diet but will not follow blood sugars Assessment & Plan (06/10/2025 5:51 PM EDT): - A1c 5.3 - diet controlled - not following FSBS Assessment & Plan (06/09/2025 11:10 AM EDT): - A1c 5.3 - diet controlled - not following FSBS Assessment & Plan (06/08/2025 11:33 AM EDT): - A1c 5.3 - diet controlled - not following FSBS Assessment & Plan (06/07/2025 12:27 PM EDT): - A1c 5.3 - diet controlled - not following FSBS Assessment & Plan (06/06/2025 3:47 PM EDT): - A1c 5.3 - diet controlled - not following FSBS Assessment & Plan (06/05/2025 12:46 PM EDT): - A1c 5.3 - diet controlled - not following FSBS Assessment & Plan (06/04/2025 1:59 PM EDT): - A1c 5.3 - diet controlled - not following FSBS Assessment & Plan (06/03/2025 7:21 AM EDT): - meds held for lows - restart Assessment & Plan (06/02/2025 9:53 AM EDT): - meds held for lows Assessment & Plan (06/01/2025 9:51 AM EDT): - meds held for lows Assessment & Plan (05/31/2025 8:02 AM EDT): - meds held for lows Assessment & Plan (05/30/2025 11:39 AM EDT): - meds held for lows Assessment & Plan (05/29/2025 11:24 AM EDT): - meds held for lows Assessment & Plan (05/28/2025 8:08 AM EDT): - meds held for lows Assessment & Plan (05/27/2025 9:42 AM EDT): - meds held for lows Assessment & Plan (05/26/2025 9:50 AM EDT): - at goal on current rx Assessment & Plan (05/25/2025 10:33 AM EDT): - at goal on current rx Assessment & Plan (05/24/2025 7:56 AM EDT): - at goal on current rx Assessment & Plan (05/23/2025 11:46 AM EDT): - at goal on current rx Assessment & Plan (05/22/2025 10:29 AM EDT): - at goal on current rx at 128/67 Assessment & Plan (05/21/2025 1:15 PM EDT): - at goal on current rx Assessment & Plan (05/20/2025 12:54 PM EDT): Well controlled. - WASHING MACHINE ASSEMBLER coreg - monitor and adjust as needed -BP stable 05/20/25 Assessment & Plan (05/19/2025 11:25 AM EDT): Well controlled. - WASHING MACHINE ASSEMBLER coreg - monitor and adjust as needed -BP stable 05/19/25 Assessment & Plan (05/18/2025 8:38 AM EDT): Well controlled. - WASHING MACHINE ASSEMBLER coreg - monitor and adjust as needed -BP stable 05/18/25 Assessment & Plan (05/17/2025 9:16 AM EDT): Well controlled. - WASHING MACHINE ASSEMBLER coreg - monitor and adjust as needed -BP stable 05/17/25 Assessment & Plan (05/16/2025 2:50 PM EDT): Well controlled. - WASHING MACHINE ASSEMBLER coreg - monitor and adjust as needed -BP stable 05/16/25 Assessment & Plan (05/15/2025 2:22 PM EDT): Well controlled. - WASHING MACHINE ASSEMBLER coreg - monitor and adjust as needed -BP stable 05/15/25 Assessment & Plan (05/14/2025 2:51 PM EDT): Well controlled. - WASHING MACHINE ASSEMBLER coreg - monitor and adjust as needed -BP stable 05/14/25 Assessment & Plan (05/13/2025 1:41 PM EDT): Well controlled. - WASHING MACHINE ASSEMBLER coreg - monitor and adjust as needed -Blood pressure 113/46 Assessment & Plan (05/12/2025 10:17 AM EDT): Well controlled. - WASHING MACHINE ASSEMBLER coreg - monitor and adjust as needed -Blood pressure 122/57 Assessment & Plan (05/11/2025 7:12 AM EDT): Well controlled. - WASHING MACHINE ASSEMBLER coreg - monitor and adjust as needed -Blood pressure 116/76 Assessment & Plan (05/10/2025 1:54 PM EDT): Well controlled. - WASHING MACHINE ASSEMBLER coreg - monitor and adjust as needed -Blood pressure 116/76 Assessment & Plan (05/09/2025 10:25 AM EDT): Well controlled. - WASHING MACHINE ASSEMBLER coreg - monitor and adjust as needed -Blood pressure 128/66 Assessment & Plan (05/08/2025 1:05 PM EDT): Well controlled. - WASHING MACHINE ASSEMBLER coreg - monitor and adjust as needed -Blood pressure 124/66 Assessment & Plan (05/07/2025 7:10 AM EDT): Well controlled. - WASHING MACHINE ASSEMBLER coreg - monitor and adjust as needed Assessment & Plan (05/06/2025 9:31 AM EDT): Well controlled. - WASHING MACHINE ASSEMBLER coreg - monitor and adjust as needed Assessment & Plan (05/05/2025 1:00 PM EDT): Well controlled. - WASHING MACHINE ASSEMBLER coreg - monitor and adjust as needed Assessment & Plan (05/05/2025 12:57 PM EDT): Well controlled. - WASHING MACHINE ASSEMBLER coreg - monitor and adjust as needed Assessment & Plan (05/03/2025 6:33 PM EDT): Controlled Assessment & Plan (05/02/2025 5:52 PM EDT): Controlled Assessment & Plan (05/01/2025 5:56 PM EDT): Controlled Assessment & Plan (04/30/2025 11:26 PM EDT): Controlled Assessment & Plan (02/04/2025 11:33 AM EDT): Blood pressure stable Coreg Assessment & Plan (02/03/2025 9:49 AM EDT): Blood pressure stable Coreg Assessment & Plan (02/02/2025 10:28 AM EDT): Blood pressure stable Coreg Assessment & Plan (02/01/2025 12:25 PM EDT): Blood pressure stable Coreg Assessment & Plan (01/31/2025 11:51 AM EDT): Blood pressure stable Coreg Assessment & Plan (01/30/2025 1:30 PM EDT): Blood pressure stable Coreg Assessment & Plan (01/28/2025 9:59 AM EDT): Stable here. 4/8 BP Readings from Last 1 Encounters: 01/28/25 143/69 Assessment & Plan (01/27/2025 2:14 PM EDT): Stable here. 4/8 BP Readings from Last 1 Encounters: 01/27/25 119/54 Assessment & Plan (01/26/2025 12:09 PM EDT): Stable here. 4/8 BP Readings from Last 1 Encounters: 01/26/25 127/54 Assessment & Plan (01/25/2025 12:22 PM EDT): Stable here. 4/8 BP Readings from Last 1 Encounters: 01/25/25 92/47 Assessment & Plan (01/24/2025 9:38 AM EDT): Stable here. 4/8 BP Readings from Last 1 Encounters: 01/24/25 135/64 Assessment & Plan (01/23/2025 1:07 PM EDT): Stable here. 4/8 BP Readings from Last 1 Encounters: 01/23/25 113/52 Assessment & Plan (01/22/2025 10:03 AM EDT): Stable here. 4/8 BP Readings from Last 1 Encounters: 01/22/25 120/51 Assessment & Plan (01/21/2025 12:19 PM EDT): Stable here BP Readings from Last 1 Encounters: 01/21/25 112/48 Assessment & Plan (01/20/2025 2:21 PM EDT): -- Coreg WASHING MACHINE ASSEMBLER. Continued -- In acceptable range. Stable. BP Readings from Last 1 Encounters: 01/20/25 109/62 Assessment & Plan (01/19/2025 1:36 PM EDT): -- Coreg WASHING MACHINE ASSEMBLER. Continued -- In acceptable range. Stable. BP Readings from Last 1 Encounters: 01/19/25 100/42 Assessment & Plan (01/18/2025 1:04 PM EDT): -- Coreg WASHING MACHINE ASSEMBLER. Continued -- In acceptable range. Stable. BP Readings from Last 1 Encounters: 01/18/25 106/41 Assessment & Plan (01/17/2025 1:00 PM EDT): -- Coreg WASHING MACHINE ASSEMBLER. Continued -- In acceptable range. Stable. BP Readings from Last 1 Encounters: 01/17/25 119/46 Assessment & Plan (01/16/2025 9:59 AM EDT): -- Coreg WASHING MACHINE ASSEMBLER. Continued -- In acceptable range. Stable. BP Readings from Last 1 Encounters: 01/16/25 144/54 Assessment & Plan (01/15/2025 11:35 AM EDT): -- Coreg WASHING MACHINE ASSEMBLER. Continued -- In acceptable range BP Readings from Last 1 Encounters: 01/15/25 125/54 Assessment & Plan (01/15/2025 6:29 AM EDT): -- Coreg WASHING MACHINE ASSEMBLER. Continued -- In acceptable range Assessment & Plan (01/15/2025 6:21 AM EDT): -- Coreg WASHING MACHINE ASSEMBLER -- In acceptable range Assessment & Plan (01/15/2025 6:10 AM EDT): -- Coreg WASHING MACHINE ASSEMBLER Assessment & Plan (01/12/2025 10:29 PM EDT): -- Coreg WASHING MACHINE ASSEMBLER Cervical disc disease 09/30/2014 Peripheral neuropathy 09/30/2014 Overview (01/12/2025): Continue outpatient management Resolved Problems Problem Noted Date Diagnosed Date Resolved Date Acute heart failure with pre served ejection fraction 06/02/2025 06/02/2025 Pleural effusion 06/04/2024 06/04/2024 Encounters Date Type Department Care Team Description 06/28/2025 Telephone [facility]P [facility] [address] [place] [phone] Sukh Garner DO Appointment Needed 06/23/2025 1:13 PM EDT - 07/02/2025 10:57 AM EDT Hospital Encounter [facility] [address] [place] [address] Stephan Rodriguez MD Nienaber, Kirk A, MD Atrial fibrillation with RVR (HCC) (Primary Dx); Acute pulmonary edema (HCC); Elevated troponin; Pleural effusion Discharge Disposition: Snf Facility 06/12/2025 8:28 PM EDT - 06/12/2025 11:17 PM EDT Emergency [facility] [address] [place], [place] [id number] Rhina Gooden DO Acute UTI (Primary Dx) Discharge Disposition: Nursing Facility 05/24/2025 8:15 AM EDT - 05/24/2025 10:45 AM EDT Surgery EDG [facility] [place] [address] Vargas Wolf MD LEG AMPUTATION ABOVE KNEE / REVISION ABOVE KNEE AMPUTATION 05/24/2025 8:07 AM EDT Anesthesia Event EDG [facility] [place] [address] Tano Justice DO Trog, Lynnsey, STEPHANIE 05/24/2025 7:20 AM EDT Ancillary Procedure [facility] SURGERY [facility] [place] [address] Donnie Kaur MD Adler, Jordan M, MD Connelly, Kevin D, MD 05/23/2025 3:01 AM EDT Anesthesia Event [facility] 3C PULMONARY [facility] [place] [address] Sheryl Horton, STEPHANIE 05/21/2025 Orders Only SEP Vascular Surg Edg [address] [facility] [address] [place] [address] Mary Lombardi MA PAD (peripheral artery disease); Critical limb ischemia of left lower extremity (HCC) 05/10/2025 12:17 PM EDT Anesthesia Event EDG [facility] [place] [address] Manuel Noland MD Zehnder, Wende, HOT BLAST WORKER 05/10/2025 11:32 AM EDT - 05/10/2025 11:59 PM EDT Hospital Encounter [facility]G IR [facility] [place] [address] Donnie Kaur MD Adler, Jordan M, MD Rodgers, Douglas A, MD Wright, Matthew Taylor, Robert Valdivia MD Preop testing (Primary Dx); Anemia, unspecified type; PAD (peripheral artery disease); Critical limb ischemia of left lower extremity (HCC) Discharge Disposition: Home or Self Care 05/09/2025 3:01 AM EDT Anesthesia Event [facility] PULMONARY [facility] [place] [address] Sheryl Horton, HOT BLAST WORKER 05/03/2025 Orders Only SE[facility] Vascular Surg [facility] [address] [place] [address] [place] [phone] Mary Lombardi MA Critical limb ischemia of left lower extremity (HCC) (Primary Dx); PAD (peripheral artery disease) 05/01/2025 Orders Only SEP Podiatry [address] [place] [phone] Irineo Perez DPM Wound dehiscence (Primary Dx); S/P transmetatarsal amputation of foot, left (HCC) 04/30/2025 4:07 PM EDT - 06/10/2025 4:06 PM EDT [facility] [place] [address] Donnie Kaur MD Adler, Jordan M, MD Connelly, Kevin D, MD Upadhayay, Niraj, MD Wound dehiscence (Primary Dx); Typical atrial flutter (HCC); Left foot pain; PAD (peripheral artery disease); Critical limb ischemia of left lower extremity (HCC); Preop testing Discharge Disposition: Snf Facility 04/29/2025 Telephone SEP Podiatry [address] [place] [address] Irineo Perez DPM Other 04/24/2025 Telephone SEP Podiatry [address] [place] [phone] Geo Joy MA Other (scheduling ) from Last 3 Months Surgical History Surgery Date Site/Laterality Comments CARDIAC SURGERY CABG/stents JOINT REPLACEMENT HYSTERECTOMY ABDOMEN SURGERY IR ANGIOGRAM FEMORAL ARTERIO SHIFT 01/17/2025 IR ANGIOGRAM FEMORAL ARTERIO SHIFT 01/17/2025 Vargas Wolf MD [facility] IR ULTRASOUND GUIDED VASCULA R ACCESS 01/17/2025 IR ULTRASOUND GUIDED VASCULAR ACCESS 01/17/2025 Vargas Wolf MD [facility] IR TOE SURGERY 01/31/2025 Foot/Ankle/Left Left foot hallux amputation; Surgeon: Dacia Mills DPM; Location: [facility]; Service: Podiatry IR ANGIOGRAM EXTREMITY LEFT 01/30/2025 IR ANGIOGRAM EXTREMITY LEFT 01/30/2025 Vargas Wolf MD [facility] IR IR ULTRASOUND GUIDED VASCULA R ACCESS 01/30/2025 IR ULTRASOUND GUIDED VASCULAR ACCESS 01/30/2025 Vargas Wolf MD [facility] IR IR REVAS FEM POP ART UNILAT W WASHING MACHINE ASSEMBLER 01/30/2025 IR REVAS FEM POP ART UNILAT W WASHING MACHINE ASSEMBLER 01/30/2025 Vargas Wolf MD [facility] IR CARDIAC CATHETERIZATION FOOT SURGERY 03/09/2025 Foot/Ankle/Left Transmetatarsal amputation of the left foot; Surgeon: Dacia Mills DPM; Location: [facility]; Service: Podiatry Medical devices from this surgery are in the Medical Devices section. FOOT SURGERY 03/17/2025 Foot/Ankle/Left left transmetatarsal amputation revision; Surgeon: Irineo Perez DPM; Location: [facility]; Service: Podiatry IR ANGIOGRAM FEMORAL ARTERIO SHIFT 05/10/2025 IR ANGIOGRAM FEMORAL ARTERIO SHIFT 05/10/2025 Vargas Wolf MD [facility] IR IR ABDOMINAL AORTOGRAM SERIALOGRAM 05/10/2025 IR ABDOMINAL AORTOGRAM SERIALOGRAM 05/10/2025 Vargas Wolf MD [facility] IR IR ULTRASOUND GUIDED VASCULA R ACCESS 05/10/2025 IR ULTRASOUND GUIDED VASCULAR ACCESS 05/10/2025 Vargas Wolf MD [facility] IR ABOVE KNEE AMPUTATION 05/24/2025 Leg/Left Left Above Knee Amputation; Surgeon: Vargas Wolf MD; Location: [facility]; Service: Vascular Medical History Medical History Date Comments A-fib (HCC) Diabetes mellitus (HCC) not curr ently on meds,rehab discontued Hypertension CHF (congestive heart failure) (HCC) Encounter for blood transfusion Arthritis Renal disorder Shortness of breath RIVERA (dyspnea on exertion) Heartburn Liver disease Fatty liver Hyperlipidemia Mixed hyperlipidemia Stroke (HCC) pt's states arou nd 3 years ago. Blood circulation, collateral Peripheral vascular disease Urinary incontinence Urinary tract infection Glaucoma Sleep apnea pt has cpap, but is not using. Difficult intravenous access pos sible use of iv therapy/ultrasound to help with venous access. Carotid artery occlusion CAD (coronary artery disease) Cardiac dysrhythmia Renal insufficiency Social History Tobacco Use Types Packs/Day Years Used Date Smoking Tobacco: Former Cigarettes Q uit: 1991 Passive Smoke Exposure: Past Smokeless Tobacco: Never Tobacco Cessation:Counseling Given: Not Answered Alcohol Use Standard Drinks/Week Comments Not Currently 0 (1 standard drink = 0.6 oz pur e alcohol) [facility] Utilities Answer Date Recorded In the past 12 months has [employer], oil, or water [employer] threatened to shut off services in your home? No 06/23/2025 Overall Financial Resource Strain (CARDIA) Answe r Date Recorded How hard is it for you to pa y for the very basics like food, housing, medical care, and heating? Not very hard 06/23/2025 PHQ-2 Answer Date Recorded PHQ-2 Total Score 0 06/23/2025 [facility] [place] of Occupat ional Health - Occupational Stress [...] to get more. Never true 06/23/2025 [facility] IP Transportation Answer D ate [...] 0.4 oz) 07/02/2025 2:10 AM EDT Height 157.5 cm (5' 2 ) 06/12/2025 8:24 PM EDT Body Mass Index 19.76 06/12/2025 8:24 PM EDT Plan of Treatment Health Maintenance Due Date Last Done Comments Wellness Exam Medicare 12/23/1942 Diabetic Eye Exam 12/23/1957 Kidney Health: uACR 12/23/1957 Zoster (1 of 2) 12/23/1989 Bone Density Screening 12/23/2004 RSV or 60+ (1 - 1-dose 75+ series) 12/23/2014 COVID-19 Vaccine ( season) 2025 12/09/2021, 02/17/2021, 01/27/2021 Influenza Vaccine (#1) 2025 , 06/30/2020, 08/02/2019, Additional history exists Hemoglobin A1c 11/03/2025 05/03/2025, 06/0 01/2024, 03/20/2024, Additional history exists Lipids 06/24/2026 06/24/2025, 03/09/2024 Kidney Health: eGFR 07/01/2026 07/01/2025, 06/30/2025, 06/29/2025, Additional history exists DTaP/TDaP/Td (2 - Td or Tdap) 01/19/2034 01/20/2024, 07/26/2011, 07/07/2005 Pneumococcal Vaccine 50+ Completed 017, 07/26/2013, 07/23/2010, Additional history exists Hepatitis B Vaccine Aged Out No longe r eligible based on patient's age to complete this topic Meningococcal B Vaccine Aged Out No l onger eligible based on patient's age to complete this topic Medical Devices Implanted Type Area Training Director Device Identifier Shelf Expiration Date Model / Serial / Lot Stent Omnilink Elite [id number] Otw Be Prmnt 0.035in Gw 6fr Stent-Omn ilink [facility]:VASC DEV 01/14/2026 [id number] / / Stent Omnilink Elite [id number] Otw Be Prmnt 0.035in Gw 6fr Stent-Omn ilink [facility]:VASC DEV 01/14/[id number] / / Mtrx Tiss 23ga Viaflow Hmn Plcnt Flw Premx Amb Temp Ndl 2cc - [id number] Implanted:Qty: 1 on 03/09/2025 by Dacia Mills DPM at [facility] Left: Foot CURRY MED GRP:[employer] TECH 11/10/2028 [id number] / [id number] / Procedures Procedure Name Priority Date/Time Associated Diagnosis [...] METER POC Routine 06/28/2025 12:03 PM EDT PHOSPHORUS LEVEL Routine 06/28/2025 11:26 AM EDT MAGNESIUM LEVEL Routine 06/28/2025 11:26 AM EDT CBC WITH DIFF Routine 06/28/2025 11:26 AM EDT COMPREHENSIVE METABOLIC [...] POC Routine 06/27/2025 9:02 AM EDT EXTRA LAVENDER Routine 06/27/2025 8:28 AM EDT EXTRA TUBES PANEL Routine 06/27/2025 8:28 AM EDT BASIC METABOLIC [...] - TELEMETRY Routine 06/26/2025 7:51 AM EDT BASIC METABOLIC PANEL Early AM 06/26/2025 6:31 AM EDT NT PROBNP Early AM 06/26/2025 6:31 AM EDT CBC Early AM 06/26/2025 6:31 AM EDT GLUCOSE METER POC Routine 06/26/2025 6:30 AM EDT GLUCOSE METER POC Routine 06/26/2025 12:14 AM EDT IP CONSULT TO UROLOGY Routine 06/25/2025 7:58 PM EDT Procedure Note - Antoine Woo PA-C - 06/26/2025 8:30 AM EDTThis note is in progress. Images from the original note were not included. 06/26/2025 Skyler Jan 1940 [id number] Reason for Consult: Urinary retention Requesting Physician: Duong Vitale MD History Obtained From: Patient, chart review HISTORY OF PRESENT ILLNESS: The patient is a 84 y.o. female with a PMHx of PAD, CHF, Afib,CKD, DM, admitted on 06/23/2025 to [facility] for AFIB with RVR. She iscurrently in ICU for AFIB with tachycardia, seizure like activity, acuteon chronic HF. Urology has been consulted for Urinary Retention. Patientwith elevated PVRs, has been straight cath for 850cc several times sinceadmission. Indwelling garrido placed last night, 06/25/2025, by SPRAYER HANDJessi Marcum, the patient was seen by our [...] IR REVAS FEM POP ART UNILAT W WASHING MACHINE ASSEMBLER 01/30/2025 IR REVAS FEM POP ART UNILAT W WASHING MACHINE ASSEMBLER 01/30/2025 Vargas oWlf MD [facility] IR IR ULTRASOUND GUIDED VASCULAR [...] - TELEMETRY Routine 06/25/2025 7:40 AM EDT BASIC METABOLIC PANEL Early AM 06/25/2025 6:31 AM EDT NT PROBNP Early AM 06/25/2025 6:31 AM EDT CBC Early AM 06/25/2025 6:31 AM EDT GLUCOSE [...] 12:16 PM EDT IP CONSULT TO MEDICAL LEAD CONSULTANT Routine 06/24/2025 11:57 AM EDT Procedure Note - Spencer Luna, HOT BLAST WORKER - 06/24/2025 11:46 AM EDTThis note is in progress. Images from the original note were not included. PULMONARY / CRITICAL CARE CONSULT NOTE Spencer Erickson Jeremy, STEPHANIE 06/24/2025 Patient: Skyler Bautista 84 y.o. female Date of Admission: 06/23/2025 Admitting Provider: Duong Vitale MD CC: Chief Complaint Patient presents with Atrial Fibrillation a fib rvr from [facility]. they report HR of 180, per squad HR 103. Skyler Bautista is a(n)84 y.o. female is being evaluated following ICUadmission for acute hypoxic respiratory failure, seizures andbradycardia. HPI: Ms. Bautista is an 84 year old female with a PMHx significant forA-fib, PE, HFpEF, subarachnoid hemorrhage, TBI, T2DM, CKD, PVD, and recentleft AKA. She was at a [facility] after recent admission for AKA withcomplaints of [...] with Afib with RVR and rate in [id number]'s. Trops: 92 -> 83, K: 4.5, creatinine: 0.84. [facility] She was continued on Cardizem [...] IR REVAS FEM POP ART UNILAT W WASHING MACHINE ASSEMBLER 01/30/2025 IR REVAS FEM POP ART UNILAT W WASHING MACHINE ASSEMBLER 01/30/2025 Vargas Wolf MD [facility] IR IR [...] foot hallux amputation; Surgeon: Dacia Mills DPM;Location: [facility] MAIN OR; Service: Podiatry FH: No family [...] true Transportation Needs: No Transportation Needs (06/23/2025) [facility] IP Transportation In the past 12 months, has lack of reliable transportation kept you frommedical appointments, meetings, work or from getting things needed fordaily living?: No Physical Activity: Inactive (06/23/2025) Exercise Vital Sign Days of Exercise per Week: 0 days Minutes of Exercise per Session: 0 min Stress: No Stress Concern Present (06/23/2025) [facility] [place] of Occupational Health - Occupational StressQuestionnaire Feeling of Stress : Not at all Social Connections: Low Risk (10/30/2023) Received from [employer] ([place], [place], [place], [place]) Family and Community Support Help with Day to Day Activities: Not on file Feeling Lonely or Isolated: Not on file Intimate Partner Violence: Not At Risk (08/06/2024) Received from [facility] Humiliation, Afraid, Rape, and Kick questionnaire Fear of Current or Ex-Partner: No Emotionally Abused: No Physically Abused: No Sexually Abused: No Housing Stability: Low Risk (08/06/2024) Received from [facility] Housing Stability Vital Sign Unable [...] fUROsemide 40 mg Intravenous Daily Insulin Calculator (TRACTOR TRAILER MECHANIC) - FSBS (Correction Only) Intake Input 1 [...] 0 Taking nalOXone (NARCAN) 4 mg/actuation Nasl [place], Non-Aerosol 0.1 mL by Nasalroute as needed for Opioid Reversal. [place] the contents of one device(0.1mL) into one [...] Date 06/24/25 0700 - 06/25/25 0659 Shift 3700-3017 1544-8902 [id number] 24 Hour Total INTAKE I.V.(mL/kg/hr) 4.5 4.5 [...] 35 % Labs: ABG Recent Labs 06/24/2522406/24/25 05 PH 7.38 7.45 PCO2 38 31* [...] 12 LEAD Result Date: 06/24[facility] Pat Name: SKYLER BAUTISTA Department: DEPIDPatient ID: [id number] Room: [facility] Gender:Female Chemical Instrumentation Officer: Reza PULIDO: [id number] By: DONNIE NIRMAL Order Number: [id number] MD: Sukh GarnerMeasurements Intervals Arthur Rate:54 P: 0 NM: 0QRS: 39 QRSD: 89 T:0 QT: 462 [...] clinician. EK EKG [address] [facility] JosueTest Date:2025-06-23 Pat Name: SKYLER BAUTISTA Department: DEPIDPatient ID: [id number] Room: W428 Gender:Female Chemical Instrumentation Officer: Femi : [id number] By: STEPHAN Earl Order Number: [id number] MD: Jaycob Sandoval MeasurementsIntervals Arthur Rate: 139P: 0 NM: 0QRS: 65 QRSD: 82 T: 26QT: 286 QTc: 436InterpretiveStatements ATRIAL FIBRILLATION WITH RAPID VENTRICULAR RESPONSE POSSIBLEANTEROSEPTAL MYOCARDIAL INFARCTION, PROBABLY OLD Electronically Signed [id number] 19:29:[address] ANGIOGRAM [...] aortic arch aneurysm. Nopneumothorax. Small left and [id number] right pleural effusions.Emphysema. Opacities dependently in the [...] ordered Insulin Regimen: Q4H [facility] Last BM: WASHING MACHINE ASSEMBLER Assessment Acute hypoxic respiratory failure Seizure Atrial [...] GI prophylaxis: Protonix CODE status: DNR Limited HOT BLAST WORKER critical care time: 17 minutes Spencer Luna APRN SCANNED EKG 06/24/2025 10:55 AM EDT IP CONSULT TO NUTRITION Routine 06/24/2025 9:17 AM EDT ADMIT Routine 06/24/2025 8:40 AM EDT GLUCOSE METER POC Routine 06/24/2025 8:15 AM EDT BLOOD GAS ARTERIAL Routine 06/24/2025 5:26 AM EDT T4, FREE (THYROXINE) Routine 06/24/2025 5:10 AM EDT TSH REFLEX TO FT4 Add-On 06/24/2025 5:10 AM EDT NT PROBNP Early AM 06/24/2025 5:10 AM EDT COMPREHENSIVE METABOLIC PANEL Early AM 06/24/2025 5:10 AM EDT CBC Early AM 06/24/2025 5:10 AM EDT TRIGLYCERIDES Routine 06/24/2025 5:10 AM EDT GLUCOSE METER POC [...] I am seeing in neurologic consultation at [facility] of Duong Vitale MD for [...] Patch 0 nalOXone (NARCAN) 4 mg/actuation Nasl [place], Non-Aerosol 0.1 mL by Nasalroute as needed for Opioid Reversal. [place] the contents of one device(0.1mL) into one [...] PM EDT UA W/REFLEX TO CULTURE Routine 5:11 PM EDT EXTRA HUITRON URINE CX [...] with any additional questions or concerns. 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 In the ED she was noted to [...] has cpap, but is not using. Stroke ([facility]) pt's states around 3 years ago. Urinary incontinence Urinary tract infection WASHING MACHINE ASSEMBLER Medications: Prior to Admission medications Medication Sig [...] Montiel MD nalOXone (NARCAN) 4 mg/actuation Nasl [place], Non-Aerosol 0.1 mL by Nasalroute as needed for Opioid Reversal. [place] the contents of one device(0.1mL) into one [...] 40 mg Intravenous BID Diuretic Insulin Calculator (TRACTOR TRAILER MECHANIC) - FSBS (Correction Only) Intake Input 1 [...] 05/10/2025 IR ABDOMINAL AORTOGRAM SERIALOGRAM 05/10/2025 Vargas Wlof MD [facility] IR ANGIOGRAM EXTREMITY LEFT 01/30/2025 IR ANGIOGRAM EXTREMITY LEFT 01/30/2025 Vargas Wolf MD [facility] IR IR ANGIOGRAM FEMORAL ARTERIO SHIFT 01/17/2025 IR ANGIOGRAM FEMORAL ARTERIO SHIFT 01/17/2025 Vargas Wolf MD [facility] IR IR ANGIOGRAM FEMORAL ARTERIO SHIFT 05/10/2025 IR ANGIOGRAM FEMORAL ARTERIO SHIFT 05/10/2025 Vargas Wolf MD [facility] IR REVAS FEM POP ART UNILAT W WASHING MACHINE ASSEMBLER 01/30/2025 IR REVAS FEM POP ART UNILAT W WASHING MACHINE ASSEMBLER 01/30/2025 Vargas Wolf MD [facility] IR IR [...] Active Problem List Diagnosis Coronary arteriosclerosis in [place] artery // Hx of CABG Closed nondisplaced [...] left foot Exostosis of toe Atherosclerosis of [place] artery of extremity Abscess of toe of [...] imaging studies available in [facility] EMR werereviewed at time of consultation [...] Bilateral pleural effusions and dependent opacities -atelectasis -WASHING MACHINE ASSEMBLER lasix PRN -Currently on IV diuresis this admission -Volume status appears to be improving - likely transition to PO tomorrow Coronary Artery Disease -Remote history of CABG and subsequent PCIs -WASHING MACHINE ASSEMBLER lipitor 40 mg, coreg 25 mg BID, ranexa 500 mg BID History of PE -No WASHING MACHINE ASSEMBLER AC with history of ICH Elevated Troponin -Troponin 92, 83 -EKG afib RVR -ECHO pending Type 2 Diabetes -A1c 5.3 Hypertension -WASHING MACHINE ASSEMBLER coreg 25 mg BID Hyperlipidemia -WASHING MACHINE ASSEMBLER lipitor 40 mg Peripheral Vascular Disease -s/p recent left AKA Plan: Check ECHO Holding rate slowing medications Continue telemetry Reduce IV diuresis to daily - likely transition to PO tomorrow May need eventual EP consult for consideration of PPM Further input from Dr. Pascual Harris, HOT BLAST WORKER Heart and Vascular 06/24/2025 Disposition Perspective - [...] AKA as of 05/24/2025, [facility] and acute[facility]oxic [facility] failure. A fib w/ RVR on admission, placed on dilt gtt, became bradycardic andhypotension, had subsequent PEA arrest, now s/p ETT and left IJ centralline. ECG on admission w/ rapid atrial fibrillation, possible old anteroseptalMI Hs Trop 92-83 NT Pro BNP [id number] 11/25/2022- 1. CAD s/p CABG 2 [...] AP PORTABLE PAULETTE 06/23/2025 1:41 PM EDT NT PROBNP STAT 06/23/2025 1:28 PM EDT PARTIAL THROMBOPLASTIN TIME STAT 06/23/2025 1:28 PM EDT PT / INR STAT 06/23/2025 1:28 PM EDT D-DIMER STAT 06/23/2025 1:28 PM EDT TROPONIN-T HIGH SENSITIVITY BASELINE W/ REFLEX STAT 06/23/2025 1:28 PM EDT BASIC METABOLIC PANEL STAT 06/23/2025 1:28 PM EDT CBC STAT 06/23/2025 1:28 PM EDT EK EKG 12 LEAD STAT 06/23/2025 1:[address] CERVICAL SPINE WO CONTRAST STAT 06/12/2025 10:[address] HEAD WO CONTRAST STAT 06/12/2025 10:01 PM EDT AMMONIA LEVEL STAT 06/12/2025 9:22 PM EDT LACTIC ACID STAT 06/12/2025 9:22 PM EDT BLOOD GAS, VENOUS STAT 06/12/2025 9:22 PM EDT COMPREHENSIVE METABOLIC PANEL STAT 06/12/2025 9:22 PM EDT CBC WITH DIFF STAT 06/12/2025 9:22 PM EDT URINALYSIS REFLEX STAT 06/12/2025 9:11 PM EDT UA W/REFLEX TO CULTURE STAT 9:11 PM EDT URINE CULTURE (NO STAIN) STAT 06/12/2025 9:11 PM EDT EXTRA HUITRON URINE CX STAT 06/12/2025 9:11 PM EDT SCANNED RHYTHM STRIPS 06/11/2025 1:28 PM EDT COMPREHENSIVE METABOLIC PANEL Routine 06/10/2025 10:32 AM EDT CBC Routine 06/10/2025 10:32 AM EDT MAGNESIUM LEVEL Routine 06/10/2025 10:32 AM EDT ECG AND WAVEFORMS - TELEMETRY Routine 06/10/2025 7:00 AM EDT XR CHEST AP PORTABLE STAT 06/09/2025 9:10 PM EDT ECG AND WAVEFORMS - TELEMETRY Routine 06/09/2025 8:24 PM EDT URINALYSIS REFLEX Routine 06/09/2025 11:46 AM EDT UA W/REFLEX TO CULTURE Routine 11:46 AM EDT URINE CULTURE (NO STAIN) Routine 06/09/2025 11:46 AM EDT EXTRA HUITRON URINE CX Routine 06/09/2025 11:46 AM EDT ECG AND [...] - TELEMETRY Routine 06/05/2025 7:05 PM EDT COMPREHENSIVE METABOLIC PANEL Routine 06/05/2025 7:27 AM EDT CBC Routine 06/05/2025 7:27 AM EDT MAGNESIUM LEVEL Routine 06/05/2025 7:27 AM EDT ECG AND WAVEFORMS - TELEMETRY Routine 06/05/2025 7:09 AM EDT ECG AND WAVEFORMS - TELEMETRY Routine 06/04/2025 7:10 PM EDT XR CHEST PA AND LATERAL PAULETTE 06/04/2025 5:07 PM EDT CBC Early AM 06/04/2025 7:52 AM EDT RENAL FUNCTION PANEL Early AM 06/04/2025 7:52 AM EDT ECG AND WAVEFORMS - TELEMETRY Routine 06/04/2025 7:29 AM EDT ECG AND WAVEFORMS - TELEMETRY Routine 06/03/2025 8:07 PM EDT ECG AND WAVEFORMS - TELEMETRY Routine 06/03/2025 7:00 AM EDT RENAL FUNCTION PANEL Early AM 06/03/2025 5:56 AM EDT CBC Early AM 06/03/2025 5:56 AM EDT ECG [...] - TELEMETRY Routine 05/31/2025 7:58 AM EDT RENAL FUNCTION PANEL Early AM 05/31/2025 7:29 AM EDT CBC Early AM 05/31/2025 7:29 AM EDT GLUCOSE METER POC Routine 05/30/2025 9:16 PM EDT ECG AND WAVEFORMS - TELEMETRY Routine 05/30/2025 7:03 PM EDT GLUCOSE METER POC Routine 05/30/2025 5:42 PM EDT GLUCOSE METER POC Routine 05/30/2025 11:32 AM EDT GLUCOSE METER POC Routine 05/30/2025 8:25 AM EDT ECG AND WAVEFORMS - TELEMETRY Routine 05/30/2025 7:00 AM EDT RENAL FUNCTION PANEL Early AM 05/30/2025 7:00 AM EDT CBC Early AM 05/30/2025 7:00 AM EDT GLUCOSE [...] CBC Early AM 05/29/2025 5:55 AM EDT BASIC METABOLIC PANEL Early AM 05/29/2025 5:55 AM EDT MAGNESIUM LEVEL Early AM 05/29/2025 5:55 AM EDT PHOSPHORUS LEVEL Early AM 05/29/2025 5:55 AM EDT TROPONIN-T [...] CBC Early AM 05/28/2025 5:35 AM EDT BASIC METABOLIC PANEL Early AM 05/28/2025 5:35 AM EDT MAGNESIUM LEVEL Early AM 05/28/2025 5:35 AM EDT PHOSPHORUS LEVEL Early AM 05/28/2025 5:35 AM EDT GLUCOSE [...] CBC Early AM 05/27/2025 3:25 AM EDT BASIC METABOLIC PANEL Early AM 05/27/2025 3:25 AM EDT MAGNESIUM LEVEL Early AM 05/27/2025 3:25 AM EDT PHOSPHORUS LEVEL Early AM 05/27/2025 3:25 AM EDT HEMOGLOBIN AND HEMATOCRIT Timed 05/27/2025 1:15 AM EDT GLUCOSE METER POC Routine 05/26/2025 11:17 PM EDT CORTISOL 60 MINUTES Routine 05/26/2025 7:36 PM EDT CORTISOL 30 MINUTES Routine 05/26/2025 7:05 PM EDT CORTISOL BASELINE Timed 05/26/2025 6:49 PM EDT CORTISOL BASELINE Timed 05/26/2025 6:49 PM EDT HEMOGLOBIN AND HEMATOCRIT Timed 05/26/2025 6:26 PM EDT TROPONIN-T HIGH SENSITIVITY 6 HR Timed 05/26/2025 6:26 PM EDT GLUCOSE METER POC Routine 05/26/2025 6:15 PM EDT XR CHEST AP PORTABLE STAT 05/26/2025 5:39 PM EDT STAPHYLOCOCCUS AUREUS SCREEN Routine 05/26/2025 4:24 PM EDT IP CONSULT TO PALLIATIVE CARE Routine 05/26/2025 4:21 PM EDT RED BLOOD CELLS REQUEST Routine 05/26/2025 4:17 PM EDT BB HISTORY CHECK STAT 05/26/2025 4:17 PM EDT ANTIBODY SCREEN IGG STAT 05/26/2025 4:17 PM EDT ABORH STAT 05/26/2025 4:17 PM EDT TYPE AND SCREEN STAT 05/26/2025 4:17 PM EDT CALCIUM, IONIZED Routine 05/26/2025 4:17 PM EDT POTASSIUM WHOLE BLOOD STAT 05/26/2025 4:17 PM EDT FIBRINOGEN Routine 05/26/2025 4:17 PM EDT PT / INR Routine 05/26/2025 4:17 PM EDT HEMOGLOBIN Routine 05/26/2025 4:17 PM EDT IP CONSULT TO PHARMACY Routine 4:02 PM EDT ADRENOCORTICOTROPIC HORMONE -REF LAB Timed 05/26/2025 3:20 PM EDT HEPATIC FUNCTION PANEL Add-On 2:11 PM EDT CORTISOL Routine 05/26/2025 2:11 PM EDT HEMOGLOBIN Routine 05/26/2025 2:11 PM EDT TROPONIN-T HIGH SENSITIVITY 2HR Timed 05/26/2025 2:11 PM EDT BLOOD GAS ARTERIAL PAULETTE 05/26/2025 1:01 PM EDT PROCALCITONIN Routine 05/26/2025 1:00 PM EDT LACTIC ACID Routine 05/26/2025 1:00 PM EDT BASIC METABOLIC PANEL Routine 05/26/2025 1:00 PM EDT CBC Routine 05/26/2025 1:00 PM EDT TROPONIN-T HIGH SENSITIVITY BASELINE W/ REFLEX STAT 05/26/2025 1:00 PM EDT GLUCOSE METER POC Routine 05/26/2025 12:37 PM EDT EK EKG 12 LEAD STAT 05/26/2025 12:27 PM EDT BLOOD CULTURE (NO STAIN) STAT 05/26/2025 11:58 AM EDT BLOOD CULTURE (NO STAIN) STAT 05/26/2025 11:58 AM EDT URINALYSIS REFLEX Routine 05/26/2025 11:16 AM EDT UA W/REFLEX TO CULTURE Routine 11:16 AM EDT URINE CULTURE (NO STAIN) Routine 05/26/2025 11:16 AM EDT EXTRA HUITRON URINE CX Routine 05/26/2025 11:16 AM EDT XR CHEST AP PORTABLE PAULETTE 05/26/2025 11:04 AM EDT ECG AND WAVEFORMS - TELEMETRY Routine 05/26/2025 7:53 AM EDT RENAL FUNCTION PANEL Early AM 05/26/2025 6:15 AM EDT CBC Early AM 05/26/2025 6:15 AM EDT ECG [...] limb ischemia of left lower extremity (HCC) INTRAOP AIRWAY PLACEMENT Routine 05/24/2025 8:13 AM EDT NM AMPUTATION THIGH THROUGH FEMUR ANY LEVEL 05/24/2025 8:06 AM EDT PAD (peripheral artery disease) Critical limb ischemia of left lower extremity (HCC) Special Needs pre op block per anethesia th PERIPHERAL BLOCK Routine 05/24/2025 7:53 AM EDT US ANES GUIDANCE FOR NERVE BLOCK STAT 05/24/2025 7:18 AM EDT ECG AND WAVEFORMS - TELEMETRY Routine 05/24/2025 7:05 AM EDT GLUCOSE METER POC Routine 05/24/2025 6:32 AM EDT ECG AND WAVEFORMS - TELEMETRY Routine 05/23/2025 7:24 PM EDT URINALYSIS REFLEX Routine 05/23/2025 3:31 PM EDT UA W/REFLEX TO CULTURE Routine 3:31 PM EDT URINE CULTURE (NO STAIN) Routine 05/23/2025 3:31 PM EDT EXTRA HUITRON URINE CX Routine 05/23/2025 3:31 PM EDT RED BLOOD CELLS REQUEST PAULETTE 05/23/2025 10:33 AM EDT RED BLOOD CELLS REQUEST PAULETTE 05/23/2025 10:33 AM EDT RED BLOOD CELLS REQUEST PAULETTE 05/23/2025 10:33 AM EDT BB HISTORY CHECK Routine 05/23/2025 10:33 AM EDT PAD (peripheral artery disease) Preop testing ANTIBODY SCREEN IGG Routine 05/23/2025 10:33 AM [...] - TELEMETRY Routine 05/22/2025 7:31 AM EDT FIBRINOGEN Early AM 05/22/2025 6:42 AM EDT PT / INR Early AM 05/22/2025 6:42 AM EDT MAGNESIUM LEVEL Early AM 05/22/2025 6:42 AM EDT CBC Early AM 05/22/2025 6:42 AM EDT BASIC METABOLIC PANEL Early AM 05/22/2025 6:42 AM EDT ECG AND WAVEFORMS - TELEMETRY Routine 05/21/2025 7:40 PM EDT CBC WITH DIFF Add-On 05/21/2025 7:18 AM EDT PERIPHERAL SMEAR/PATH REVIEW Add-On 05/21/2025 7:18 AM EDT IRON+TIBC Early AM 05/21/2025 7:18 AM EDT VITAMIN B12/ FOLIC ACID Early AM 05/21/2025 7:18 AM EDT MAGNESIUM LEVEL Early AM 05/21/2025 7:18 AM EDT CBC Early AM 05/21/2025 7:18 AM EDT BASIC METABOLIC PANEL Early AM 05/21/2025 7:18 AM EDT ECG AND WAVEFORMS - TELEMETRY Routine 05/21/2025 7:00 AM EDT ECG AND WAVEFORMS - TELEMETRY Routine 05/20/2025 7:38 PM EDT ECG AND WAVEFORMS - TELEMETRY Routine 05/20/2025 7:00 AM EDT MAGNESIUM LEVEL Early AM 05/20/2025 6:59 AM EDT CBC Early AM 05/20/2025 6:59 AM EDT BASIC [...] URINE CX Routine 05/18/2025 6:43 AM EDT MAGNESIUM LEVEL Early AM 05/18/2025 6:28 AM EDT CBC Early AM 05/18/2025 6:28 AM EDT BASIC METABOLIC PANEL Early AM 05/18/2025 6:28 AM EDT ECG AND WAVEFORMS - TELEMETRY Routine 05/17/2025 7:08 PM EDT MAGNESIUM LEVEL Early AM 05/17/2025 1:29 PM EDT CBC Early AM 05/17/2025 1:29 PM EDT BASIC METABOLIC PANEL Early AM 05/17/2025 1:29 PM EDT SCANNED RHYTHM STRIPS 05/17/2025 1:13 PM EDT ECG AND WAVEFORMS - TELEMETRY Routine 05/17/2025 7:31 AM EDT ECG AND WAVEFORMS - TELEMETRY Routine 05/16/2025 10:49 PM EDT ECG AND WAVEFORMS - TELEMETRY Routine 05/16/2025 7:26 AM EDT CBC Early AM 05/16/2025 3:24 AM EDT BASIC METABOLIC PANEL Early AM 05/16/2025 3:24 AM EDT MAGNESIUM LEVEL Routine 05/16/2025 3:24 AM EDT ECG AND WAVEFORMS [...] progress. Palliative Care Consult Note Consult Location: [facility] Length of Stay: 12 - chart review complete. Referring Provider: MD Maryann Assessment: Skyler Bautista is a 84 y.o. female with PVD who presented to the ED withdehiscence of left TMA. With initial surgery on 03/09/25, with revision on03/18/25. Patient has been presented with the treatment options of Sophie ZAPIEN.Patient with multiple underlying co morbidities as [...] helpful to explore this further with floor Rag Cutting Machine Operator.Support provided along with [facility] role. Patient reports [...] adult children, majority rules, 11/18. Surrogate by: NOK per KRS Disposition: TBD, [...] Wound Dehiscence Pt presents per ems [facility], toes amputated on left foot,here for wound [...] Paroxysmal atrial fibrillation (HCC) Coronary arteriosclerosis in [place] artery // Hx of CABG Type 2 [...] true Transportation Needs: No Transportation Needs (05/01/2025) [facility] Transportation In the past 12 months, has lack of reliable transportation kept you frommedical appointments, meetings, work or from getting things needed fordaily living?: No Physical Activity: Inactive (05/01/2025) Exercise Vital Sign Days of Exercise per Week: 0 days Minutes of Exercise per Session: 0 min Stress: No Stress Concern Present (05/01/2025) [facility] [place] of Occupational Health - Occupational StressQuestionnaire Feeling of Stress : Not at all Social Connections: Low Risk (10/30/2023) Received from [employer] ([place], [place], [place], [place]) Family and Community Support Help with Day to Day Activities: Not on file Feeling Lonely or Isolated: Not on file Intimate Partner Violence: Not At Risk (08/06/2024) Received from [facility] Humiliation, Afraid, Rape, and Kick questionnaire Fear of Current or Ex-Partner: No Emotionally Abused: No Physically Abused: No Sexually Abused: No Housing Stability: Low Risk (08/06/2024) Received from [facility] Housing Stability Vital Sign Unable [...] mg 300 mg Oral Nightly 300 mg at07/27/25 2255 glucagon (GLUCAGEN) injection 1 mg 1 mg [...] limb ischemia of left lower extremity (HCC) IR ANGIOGRAM FEMORAL ARTERIO SHIFT Routine 05/10/2025 2:06 PM EDT PAD (peripheral artery disease) Critical limb ischemia of left lower extremity (HCC) INTRAOP AIRWAY PLACEMENT Routine 05/10/2025 12:26 PM EDT ECG AND WAVEFORMS - TELEMETRY Routine 05/10/2025 8:04 AM EDT ECG AND WAVEFORMS - TELEMETRY Routine 05/09/2025 7:03 PM EDT GLUCOSE METER POC Routine 05/09/2025 3:49 PM EDT ECG AND WAVEFORMS - TELEMETRY Routine 05/09/2025 12:37 PM EDT CBC WITH DIFF Routine 05/09/2025 7:48 AM EDT Preop testing Anemia, unspecified type ECG AND WAVEFORMS - TELEMETRY Routine 05/09/2025 [...] - TELEMETRY Routine 05/03/2025 7:55 AM EDT HEMOGLOBIN A1C Routine 05/03/2025 6:37 AM EDT CBC Early AM 05/03/2025 6:37 AM EDT BASIC METABOLIC PANEL Early AM 05/03/2025 6:37 AM EDT ECG AND WAVEFORMS - TELEMETRY Routine 05/02/2025 11:00 PM EDT GLUCOSE METER POC Routine 05/02/2025 9:27 PM EDT IP CONSULT TO VASCULAR SURGERY Routine 05/02/2025 5:53 PM EDT Procedure Note - Vargas Wolf MD - 05/03/2025 9:50 AM EDTThis note is in progress. Images from the original note were not included. Name: Skyler Bautista ADDRESS: [address] [place] [address] : 1940 AGE: 84 y.o. Hospital: [facility] Requesting Attending: Dr. Aguirre Primary [...] hemorrhagic contusion, bilateral SAH and SDH in January4at . She is known to our vascular service for PAD with ulcer statuspost LLE angiogram with WASHING MACHINE ASSEMBLER of peroneal, tibioperoneal trunk andpopliteal arteries on [...] History: 01/30/2025 - Left LE angiogram with WASHING MACHINE ASSEMBLER of peroneal and tibioperoneal trunkwith 1.5 x 80 mm and 2 x 200 balloons. WASHING MACHINE ASSEMBLER of the popliteal artery with3.5 x 120 mm and 4 x 80 mm balloons. (Vargas Wolf MD) REVIEW OF SYSTEMS Review of [...] Not Taking nalOXone (NARCAN) 4 mg/actuation Nasl [place], Non-Aerosol 0.1 mL by Nasalroute as needed for Opioid Reversal. [place] the contents of one device(0.1mL) into one nostril upon signs of opioid overdose. Call 911. Mayrepeat dose in other nostril if no response within 2-3 minutes. 1 Each 0 nalOXone (NARCAN) 4 mg/actuation Nasl [place], Non-Aerosol 0.1 mL by Nasalroute as needed for Opioid Reversal. [place] the contents of one device(0.1mL) into one [...] 300 mg 300 mg Oral Nightly Jose Guillermo, PROGRAM ARRANGER 300 mg at 05/02/252153 glucagon (GLUCAGEN) injection [...] ophthalmic solution 1 Drop 1 DropOphthalmic Nightly Alyosn Guillermo PROGRAM ARRANGER 1 Drop at 05/01/252238 LORazepam (ATIVAN) tablet [...] Transmetatarsal amputation of the left foot; Surgeon: Tnoy Mills DPM; Location: [facility] MAIN OR; Service: Podiatry FOOT SURGERY Left 03/17/2025 left transmetatarsal amputation revision; Surgeon: Irineo Perez DPM; Location: [facility]; Service: Podiatry HYSTERECTOMY IR ANGIOGRAM EXTREMITY LEFT 01/30/2025 IR ANGIOGRAM EXTREMITY LEFT 01/30/2025 Vargas Wolf MD [facility] IR ANGIOGRAM FEMORAL ARTERIO SHIFT 01/17/2025 IR ANGIOGRAM FEMORAL ARTERIO SHIFT 01/17/2025 Vargas Wolf MD [facility] IR IR REVAS FEM POP ART UNILAT W WASHING MACHINE ASSEMBLER 01/30/2025 IR REVAS FEM POP ART UNILAT W WASHING MACHINE ASSEMBLER 01/30/2025 Vargas Wolf MD [facility] IR ULTRASOUND GUIDED VASCULAR ACCESS 01/17/2025 IR ULTRASOUND GUIDED VASCULAR ACCESS 01/17/2025 Vargas Wolf MD [facility] IR ULTRASOUND GUIDED VASCULAR ACCESS 01/30/2025 IR ULTRASOUND GUIDED VASCULAR ACCESS 01/30/2025 Vargas Wolf MD [facility] JOINT REPLACEMENT TOE [...] was seen in coordination with the physician assistant athletic trainer/nursepractitioner. Patient with LLE angiogram with WASHING MACHINE ASSEMBLER of popliteal, TPT and peroneal artery01/29 s/p [...] All questions wereanswered. Discussed plan with podiatry. Vargas Wolf MD GLUCOSE METER POC Routine 05/02/2025 5:04 PM EDT GLUCOSE METER POC Routine 05/02/2025 1:03 PM EDT IP CONSULT TO PASTORAL CARE Routine 05/02/2025 12:50 PM EDT VA LOWER EXTREMITY ARTERIAL DUPLEX COMPLETE PAULETTE 05/02/2025 [...] PM EDT IP CONSULT TO NUTRITION Routine 05/01/2025 3:48 PM EDT GLUCOSE METER POC Routine [...] left foot; Surgeon: Tony Mills DPM; Location: [facility] MA[facility] OR; Service: Podiatry FOOT SURGERY Left 03/17/2025 left transmetatarsal amputation revision; Surgeon: Irineo Perez DPM; Location: [facility]; Service: Podiatry HYSTERECTOMY IR ANGIOGRAM EXTREMITY LEFT 01/30/2025 IR ANGIOGRAM EXTREMITY LEFT 01/30/2025 Vargas Wolf MD [facility] IR ANGIOGRAM FEMORAL ARTERIO SHIFT 01/17/2025 IR ANGIOGRAM FEMORAL ARTERIO SHIFT 01/17/2025 Vargas Wolf MD [place] IR IR REVAS FEM POP ART UNILAT W WASHING MACHINE ASSEMBLER 01/30/2025 IR REVAS FEM POP ART UNILAT W WASHING MACHINE ASSEMBLER 01/30/2025 Vargas Wolf MD [facility] IR ULTRASOUND GUIDED VASCULAR ACCESS 01/17/2025 IR ULTRASOUND GUIDED VASCULAR ACCESS 01/17/2025 Vargas Wolf MD FLOIR IR ULTRASOUND GUIDED VASCULAR ACCESS 01/30/2025 IR ULTRASOUND GUIDED VASCULAR ACCESS 01/30/2025 Vargas Wolf MD [facility] JOINT REPLACEMENT TOE [...] true Transportation Needs: No Transportation Needs (05/01/2025) [facility] Transportation In the past 12 months, has lack of reliable transportation kept you frommedical appointments, meetings, work or from getting things needed fordaily living?: No Physical Activity: Inactive (05/01/2025) Exercise Vital Sign Days of Exercise per Week: 0 days Minutes of Exercise per Session: 0 min Stress: No Stress Concern Present (05/01/2025) [facility] [place] of Occupational Health - Occupational StressQuestionnaire Feeling of Stress : Not at all Received from [employer] ([place], [place], [place], [place]) Family and Community Support Intimate Partner Violence: Not At Risk (08/06/2024) Received from [facility] Humiliation, Afraid, Rape, and Kick questionnaire Fear of Current or Ex-Partner: No Emotionally Abused: No Physically Abused: No Sexually Abused: No Housing Stability: Low Risk (08/06/2024) Received from [facility] Housing Stability Vital Sign Unable [...] consented permission allowing today's photographs - usingthe [email or web address] mathew. Lab and radiographic data reviewed. Thank you for asking me to participate in your patient's care. Jovanni Montesinos, HOT BLAST WORKER 05/01/2025 BLOOD GAS, VENOUS STAT 04/30/2025 5:56 PM EDT BLOOD CULTURE (NO STAIN) STAT 04/30/2025 5:56 PM EDT BLOOD CULTURE (NO STAIN) STAT 04/30/2025 5:56 PM EDT XR FOOT LEFT AP LATERAL AND OBLIQUE PAULETTE 04/30/2025 5:45 PM EDT XR CHEST AP PORTABLE PAULETTE 04/30/2025 5:32 PM EDT C-REACTIVE PROTEIN STAT 04/30/2025 5:15 PM EDT SEDIMENTATION RATE AUTOMATED STAT 04/30/2025 5:15 PM EDT PROCALCITONIN STAT 04/30/2025 5:15 PM EDT LACTIC ACID STAT 04/30/2025 5:15 PM EDT COMPREHENSIVE METABOLIC PANEL STAT 04/30/2025 5:15 PM EDT CBC WITH DIFF STAT 04/30/2025 5:15 PM EDT SALINE LOCK IV STAT 04/30/2025 5:06 PM EDT IP CONSULT TO PHARMACY STAT 5:04 PM EDT SALINE LOCK IV STAT 04/30/2025 5:03 PM EDT EK EKG 12 LEAD STAT 04/30/2025 4:18 PM EDT from Last 3 Months Results * (ABNORMAL) GLUCOSE METER POC (07/02/2025 8:08 AM EDT) Only the most recent of91 resultswithin the time period is included. [facility] Glucose Meter POC 112(H) 70 - 100 mg/dL 07/02/2025 8:11 AM EDT [facility] Sample Type Capillary 07/02/2025 8:11 AM EDT [facility] Patient Status Non-Critical Patient 07/02/2025 8:11 AM EDT [facility] Blood BLOOD SPECIMEN / Unknown 07/02/2025 8:08 AM EDT 07/02/2025 8:11 AM EDT Duong Vitale MD POINT OF CARE TEST ORDERABLES Final Result Performing Organization Address City/[facility] Co de Phone Number [facility] [address] [phone] * ECG AND WAVEFORMS - TELEMETRY (07/01/2025 7:05 PM EDT) Only the most recent of114 resultswithin the time period is included. Pathologist [facility] ECG INTERPRET Sinus Arrythmia [facility] 07/01/2025 7:05 PM EDT Narrative [facility] - 07/01/2025 7:37 PM EDT ROUTINE/PAC/PVC/af NM 0.18 QRS 0.09 RR 0.58 QT 0.35 QTc 0.46 See Clinical Report link for waveform capture Unknown Provider POINT OF CARE CARDIOLOGY Final Result Performing Organization Address City/[facility]/ZIP Co de Phone Number [facility] [address] [place] [address] * (ABNORMAL) COMPREHENSIVE METABOLIC PANEL (07/01/2025 10:56 AM EDT) Only the most recent of9 resultswithin the time period is included. Sodium 138 136 - 145 mmol/L 07/01/2025 11:22 AM EDT [facility] Potassium 3.6 3.5 - 5.0 mmol/L 07/01/2025 11:22 AM EDT [facility] Chloride 104 98 - 107 mmol/L 07/01/2025 11:22 AM EDT [facility] Total CO2 22 22 - 29 mmol/L 07/01/2025 11:22 AM EDT [facility] Anion Gap 12 7 - 16 mmol/L 07/01/2025 11:22 AM EDT [facility] Calcium 8.9 8.8 - 10.4 mg/dL 07/01/2025 11:22 AM EDT [facility] Glucose Lvl 128(H) 70 - 99 mg/dL 07/01/2025 11:22 AM EDT [facility] BUN 25(H) 8 - 23 mg/dL 07/01/2025 11:22 AM EDT [facility] Creatinine 0.82 0.51 - 1.30 mg/dL 07/01/2025 11:22 AM EDT [facility] [facility] Albumin 3.7 3.2 - 4.6 gm/dL 07/01/2025 11:22 AM EDT [facility] Total Protein 7.1 6.4 - 8.3 gm/dL 07/01/2025 11:22 AM EDT [facility] Bili Total 0.6 0.2 - 1.3 mg/dL 07/01/2025 11:22 AM EDT [facility] ALT 18 <=41 U/L 07/01/2025 11:22 AM EDT [facility] AST 35 <=40 U/L 07/01/2025 11:22 AM EDT [facility] Alk Phos 151(H) 36 - 123 U/L 07/01/2025 11:22 AM T [facility] eGFR (CKD-EPIcr 2020) 70 >=60 mL/min/1.7 3 m2 07/01/2025 11:22 AM EDT [facility] Comment:Estimated GFR was ca lculated using the CKD-EPIcr (2020) equation refit without race. The equation is recommended by the [employer] Kid[employer] - [place] [employer] Neph[employer] Task Force. Blood VENOUS BLOOD / Unknown Venipuncture / Unknown 07/01/2025 10:56 AM EDT 07/01/2025 10:59 AM EDT us Jacob Horowitz MD CHEMISTRY ORDERABLES Final Resul t [facility] [address] [place] [address] * (ABNORMAL) CBC WITH DIFF (06/28/2025 11:26 AM EDT) Only the most recent of6 resultswithin the time period is included. WBC 4.3 3.7 - 10.3 x10(3)/mcL 06/28/2025 11:33 AM EDT [facility] RBC 2.62(L) 3.90 - 5.20 x10(6)/mcL 06/28/2025 11:33 AM EDT [facility] Hgb 9.7(L) 11.2 - 15.7 g/dL 06/28/2025 11:33 AM EDT [facility] Hct 30.2(L) 34.0 - 45.0 % 06/28/2025 11:33 AM EDT [facility] MCV 115.3(H) 80.0 - 100.0 fL 06/28/2025 11:33 AM EDT [facility] MCH 37.0(H) 26.0 - 34.0 pg 06/28/2025 11:33 AM EDT [facility] MCHC 32.1 30.7 - 35.5 g/dL 06/28/2025 11:33 AM EDT [facility] RDW 18.9(H) <=14.9 % 06/28/2025 11:33 AM EDT [facility] Platelet 86(L) 155 - 369 x10(3)/mcL 06/28/2025 11:33 AM EDT [facility] MPV 11.8 8.8 - 12.5 fL 06/28/2025 11:33 AM EDT [facility] Neut Percent 52.1 % 06/28/2025 11:33 AM EDT [facility] Comment:Neutrophils equals s egs plus bands Imm Gran% 0.5 % 06/28/2025 11:33 AM EDT [facility] Comment:Automated count of m etamyelocytes, myelocytes and promyelocytes. Lymph Percent 40.1 % 06/28/2025 11:33 AM EDT [facility] Green Percent 6.6 % 06/28/2025 11:33 AM EDT [facility] Eos Percent 0.2 % 06/28/2025 11:33 AM EDT [facility] Baso Percent 0.5 % 06/28/2025 11:33 AM EDT [facility] Neut # 2.2 1.6 - 6.1 x10(3)/[facility] 06/28/2025 11:33 AM EDT [facility] Comment:Neutrophils equals s egs plus bands IMMGRAN# 0.0 0.0 - 0.1 x10(3)/[facility] 06/28/2025 11:33 AM EDT [facility] Comment:Automated count of m etamyelocytes, myelocytes and promyelocytes. An absolute IG <0.1 is reported as 0.0. Lymph # 1.7 1.2 - 3.9 x10(3)/[facility] 06/28/2025 11:33 AM EDT [facility] Green # 0.3 0.3 - 0.9 x10(3)/[facility] 06/28/2025 11:33 AM EDT [facility] Eos# 0.0 0.0 - 0.5 x10(3)/[facility] 06/28/2025 11:33 AM EDT [facility] Baso # 0.0 0.0 - 0.1 x10(3)/[facility] 06/28/2025 11:33 AM EDT [facility] Blood VENOUS BLOOD / Unknown Venipuncture / Unknown 06/28/2025 11:26 AM EDT 06/28/2025 11:30 AM EDT us Jacob Horowitz MD HEMATOLOGY ORDERABLES Final Resu lt [facility] [address] [place] [address] * PHOSPHORUS LEVEL (06/28/2025 11:26 AM EDT) Only the most recent of5 resultswithin the time period is included. Phosphorus 2.6 2.5 - 4.5 mg/dL 06/28/2025 11:55 AM EDT [facility] Blood VENOUS BLOOD / Unknown Venipuncture / Unknown 06/28/2025 11:26 AM EDT 06/28/2025 11:30 AM EDT Jacob Horowitz MD CHEMISTRY ORDERABLES Final Resul t Performing Organization Address [facility] de Phone Number [facility] [address] [place] [address] * MAGNESIUM LEVEL (06/28/2025 11:26 AM EDT) Only the most recent of14 resultswithin the time period is included. Magnesium 1.8 1.6 - 2.4 mg/dL 06/28/2025 12:04 PM EDT [facility] Blood VENOUS BLOOD / Unknown Venipuncture / Unknown 06/28/2025 11:26 AM EDT 06/28/2025 11:30 AM EDT Jacob Horowitz MD CHEMISTRY ORDERABLES Final Resul t Performing Organization Address [facility] de Phone Number [facility] [address] [place] [address] * EXTRA LAVENDER (06/27/2025 8:28 AM EDT) Blood VENOUS BLOOD / Unknown Venipuncture / Unknown 06/27/2025 8:28 AM EDT 06/27/2025 8:36 AM EDT Duong Vitale MD HEMATOLOGY ORDERABLES Final R esult Performing Organization Address City/[facility] de Phone Number [facility] [address] [place] [address] * (ABNORMAL) BASIC METABOLIC PANEL (06/27/2025 8:28 AM EDT) Only the most recent of23 resultswithin the time period is included. Sodium 138 136 - 145 mmol/L 06/27/2025 8:56 AM EDT [facility] Potassium 4.1 3.5 - 5.0 mmol/L 06/27/2025 8:56 AM EDT [facility] Chloride 106 98 - 107 mmol/L 06/27/2025 8:56 AM EDT [facility] Total CO2 21(L) 22 - 29 mmol/L 06/27/2025 8:56 AM EDT [facility] Anion Gap 11 7 - 16 mmol/L 06/27/2025 8:56 AM EDT [facility] Calcium 8.3(L) 8.8 - 10.4 mg/dL 06/27/2025 8:56 AM EDT [facility] Glucose Lvl 112(H) 70 - 99 mg/dL 06/27/2025 8:56 AM EDT [facility] BUN 13 8 - 23 mg/dL 06/27/2025 8:56 AM EDT [facility] Creatinine 0.86 0.51 - 1.30 mg/dL 06/27/2025 8:56 AM EDT [facility] eGFR (CKD-EPIcr 2020) 66 >=60 mL/min/1.7 3 m2 06/27/2025 8:56 AM EDT [facility] Comment:Estimated GFR was ca lculated using the CKD-EPIcr (2020) equation refit without race. The equation is recommended by the National Kid[employer] - [place] [employer] Nephrology Task Force. Blood VENOUS BLOOD / Unknown Venipuncture / Unknown 06/27/2025 8:28 AM EDT 06/27/2025 8:35 AM EDT Lianet Harris HOT BLAST WORKER CHEMISTRY ORDERABLES Fi nal Result [facility] [address] [place], [place] [id number] * POTASSIUM LEVEL (06/26/2025 2:27 PM EDT) Only the most recent of2 resultswithin the time period is included. Potassium 4.5 3.5 - 5.0 mmol/L 06/26/2025 2:46 PM EDT [facility] Blood VENOUS BLOOD / Unknown Venipuncture / Unknown 06/26/2025 2:27 PM EDT 06/26/2025 2:34 PM EDT us Jacob Horowitz MD CHEMISTRY ORDERABLES Final Resul t [facility] [address] [place] [address] * US RENAL AND BLADDER (06/26/2025 [...] evaluation of the kidneys and bladder with field service representative images and correctional manager notes sent to PACS for radiologist review. [...] sonographic evaluation of the kidneys andbladder with field service representative images and correctional manager notes sent to PACS forradiologist review. FINDINGS: [...] the ordering clinician. us Antoine Ferraro PA-C [facility] [place] ORDERABLES F inal Result * (ABNORMAL) CBC (06/26/2025 6:31 AM EDT) Only the most recent of31 resultswithin the time period is included. WBC 4.6 3.7 - 10.3 x10(3)/mcL 06/26/2025 6:42 AM EDT [facility] RBC 2.48(L) 3.90 - 5.20 x10(6)/mcL 06/26/2025 6:42 AM EDT [facility] Hgb 9.0(L) 11.2 - 15.7 g/dL 06/26/2025 6:42 AM EDT [facility] Hct 27.4(L) 34.0 - 45.0 % 06/26/2025 6:42 AM EDT [facility] MCV 110.5(H) 80.0 - 100.0 fL 06/26/2025 6:42 AM EDT [facility] MCH 36.3(H) 26.0 - 34.0 pg 06/26/2025 6:42 AM EDT [facility] MCHC 32.8 30.7 - 35.5 g/dL 06/26/2025 6:42 AM EDT [facility] RDW 19.3(H) <=14.9 % 06/26/2025 6:42 AM EDT [facility] Platelet 87(L) 155 - 369 x10(3)/mcL 06/26/2025 6:42 AM EDT [facility] MPV 12.9(H) 8.8 - 12.5 fL 06/26/2025 6:42 AM EDT [facility] Blood VENOUS BLOOD / Unknown Venipuncture / Unknown 06/26/2025 6:31 AM EDT 06/26/2025 6:37 AM EDT Duong Vitale MD HEMATOLOGY ORDERABLES Final R esult Performing Organization Address [facility] Co de Phone Number [facility] [address] [place] [address] * (ABNORMAL) NT PROBNP (06/26/2025 6:31 AM EDT) Only the most recent of4 resultswithin the time period is included. NT Pro-BNP 7,743(H) <=624 pg/mL 06/26/2025 7:09 AM EDT [facility] Blood VENOUS BLOOD / Unknown Venipuncture / Unknown 06/26/2025 6:31 AM EDT 06/26/2025 6:37 AM EDT Narrative [facility] - 06/26/2025 7:09 AM EDT [...] Re sult Performing Organization Address [facility] Co de Phone Number [facility] [address] [facility] [address] * EEG ED/ICU REMOTE MONITORING (06/25/2025 3:28 [...] without any parasagittal coverage (rapid EEG - Foradianibell device). Computer selected EEG is reviewed as well as background features and all clinically significant events. TECHNICAL SUMMARY: This is a 10 channel referential and bipolar EEG recorded in a digital format on the ForadianibMagic Wheels device. This device is designed to detect [...] EEG ORDERABLES Final Resu lt * (ABNORMAL) BLOOD GAS, VENOUS (06/25/2025 10:58 AM EDT) Only the most recent of3 resultswithin the time period is included. pH Venous 7.42 7.32 - 7.42 pH 06/25/2025 11:14 AM EDT [facility] pCO2 Venous 37(L) 41 - 51 mmHg 06/25/2025 11:14 AM EDT [facility] pO2 Venous 50(H) 25 - 40 mmHg 06/25/2025 11:14 AM EDT [facility] Comment:Interpret with cauti on. Not recommended to evaluate patient's oxygenation status. Base Excess Martín 0.0 mmol/L 11:14 AM EDT [facility] Hco3 Venous 24.3 24.0 - 28.0 mmol/L 06/25/2025 11:14 AM EDT [facility] CO2 Total Martín 23(L) 25 - 29 mmol/L 06/25/2025 11:14 AM EDT [facility] O2 Sat. Venous 83.5(H) 40.0 - 70.0 % 06/25/2025 11:14 AM EDT [facility] Inspired O2 25 06/25/2025 11:14 AM EDT [facility] Blood VENOUS STRUCTURE / Unknown Line / Unknown 06/25/2025 10:58 AM EDT 06/25/2025 11:06 AM EDT us Gabby Heredia HOT BLAST WORKER CHEMISTRY ORDERABLES Final Resul t [facility] [address] [place] [address] * CT HEAD WO CONTRAST (06/24/2025 2:37 PM EDT) Only the most recent of2 resultswithin the time period is included. Anatomical Region Laterality Modality Head Computed Tomogra [...] please contactthe office of the ordering clinician. Rusyt Sawyer MD IMG CT ORDERABLES Mita l [...] * There is severe tricuspid valve regurgitation. us Sukh Garner DO IMG ECHO ORDERABLES Final Re sult * SCANNED EKG (06/24/2025 10:55 AM EDT) Anatomical Region Laterality Modality Other 06/24/2025 10:5 5 AM EDT us Unknown Provider IMG ECG ORDERABLES Final Result * (ABNORMAL) BLOOD GAS ARTERIAL (06/24/2025 5:26 AM EDT) Only the most recent of3 resultswithin the time period is included. pH 7.45 7.35 - 7.45 pH 06/24/2025 5:39 AM EDT [facility] pCO2 31(L) 35 - 45 mmHg 06/24/2025 5:39 AM EDT [facility] pO2 86 80 - 100 mmHg 06/24/2025 5:39 AM EDT [facility] HCO3 21.8(L) 22.0 - 26.0 mmol/L 06/24/2025 5:39 AM EDT [facility] TCO2 21(L) 22 - 29 mmol/L 06/24/2025 5:39 AM EDT [facility] Base Excess -1.8 -2.0 - 3.0 mmol/L 06/24/2025 5:39 AM EDT [facility] O2 Sat 97.7 95.0 - 98.0 % 06/24/2025 5:39 AM EDT [facility] Inspired O2 50 06/24/2025 5:39 AM EDT [facility] P/F Ratio 172(L) 300 - 500 mmHg 06/24/2025 5:39 AM EDT [facility] Comment: P/F ratio alone cannot diagnose ARDS. However, the following scale may be used to help classify Adult Respiratory Distress Syndrome (ARDS) severity: 200-300: Mild ARDS 100-199: Moderate ARDS <100: Severe ARDS Blood ARTERIAL BLOOD / Unknown Arterial / Unknown 06/24/2025 5:26 AM EDT 06/24/2025 5:32 AM EDT us John Rich MD CHEMISTRY ORDERABLES Final Resu lt Performing Organization Address City/[facility]/ZIP Co de Phone Number [facility] [address] [place] [address] * (ABNORMAL) TSH REFLEX TO FT4 (06/24/2025 5:10 AM EDT) TSH Reflex 10.400(H) 0.270 - 4.200 mcIU/mL 06/24/2025 2:51 PM EDT [facility] Blood VENOUS BLOOD / Unknown Venipuncture / Unknown 06/24/2025 5:10 AM EDT 06/24/2025 5:32 AM EDT Narrative [facility] - 06/24/2025 2:51 PM EDT Ingestion of angie doses of biotin (>5 mg/day) taken within 8 hours of drawing blood sample can interfere with this immunoassay test. Lianet Harris APRN CHEMISTRY ORDERABLES Fi nal Result Performing Organization Address [facility] de Phone Number [facility] [address] [place] [address] , [place] [address] * TRIGLYCERIDES (06/24/2025 5:10 AM EDT) Triglyceride 107 <150 mg/dL 06/24/2025 8:05 AM EDT [facility] Comment: < 150 Normal 150 - 199 Borderline High 200 - 499 High >= 500 Very High Blood VENOUS BLOOD / Unknown Venipuncture / Unknown 06/24/2025 5:10 AM EDT 06/24/2025 5:32 AM EDT us Donnie Esqueda MD CHEMISTRY ORDERABLES Final Re sult Performing Organization Address City/[facility]/ZIP Co de Phone Number [facility] [address] [facility] , [place] [address] * T4, FREE (THYROXINE) (06/24/2025 5:10 AM EDT) Free T4 0.98 0.80 - 1.80 ng/dL 06/24/2025 3:36 PM EDT [facility] Blood VENOUS BLOOD / Unknown Venipuncture / Unknown 06/24/2025 5:10 AM EDT 06/24/2025 5:32 AM EDT Narrative [facility] - 06/24/2025 3:36 PM EDT Ingestion of angie doses of biotin (>5 mg/day) taken within 8 hours of drawing blood sample can interfere with this immunoassay test. Lianet Harris HOT BLAST WORKER CHEMISTRY ORDERABLES Fi nal Result [facility] [address] , [place] [address] * XR CHEST AP PORTABLE (06/24/2025 4:17 AM EDT) Only the most recent of10 resultswithin the time period is included. Anatomical Region Laterality Modality Chest Radiographic Barbie [...] contactthe office of the ordering clinician. us Duong Vitale MD IMG DIAGNOSTIC IMAGING ORDERA BLES Final Result * EK EKG 12 LEAD (06/24/2025 12:05 AM EDT) Only the most recent of5 resultswithin the time period is included. Anatomical Region Laterality Modality Electrocardiogra phy 06/24/2025 7:30 AM EDT Impressions 06/24/2025 8:09 AM EDT [facility] Test Date: 2025-06-24 Pat Name: SKYLER ALCAZARLIVAN Department: DEPID Room: [facility] Gender: Female Chemical Instrumentation Officer: Reza : 1940 Requested By: DONNIE ESQUEDA Order Number: [id number] Reading MD: Sukh Garner Measurements Intervals Arthur Rate: 54 P: 0 NM: 0 QRS: 39 QRSD: 89 T: 0 [...] Garner DO - 06/24/[address] [facility] Test Date: 2025-06-24 Pat Name: SKYLER BAUTISTA Department: DEPID Room: [facility] Gender: Female Chemical Instrumentation Officer: Reza : 1940 Requested By: DONNIE ESQUEDA Order Number: [id number] Reading MD: Sukh Garner Measurements Intervals Arthur Rate: 54 P: 0 NM: 0 QRS: 39 QRSD: 89 T: 0 [...] IMG ECG ORDERABLES Final Resu lt * URINALYSIS REFLEX (06/23/2025 5:11 PM EDT) Only the most recent of6 resultswithin the time period is included. UA Color Yellow 06/23/2025 5:33 PM EDT [facility] UA Appear Clear Clear 06/23/2025 5:33 PM EDT [facility] UA Glucose Negative Negative mg/dL 06/23/2025 5:33 PM EDT [facility] UA Ketones Negative Negative mg/dL 06/23/2025 5:33 PM EDT [facility] UA Blood Negative Negative 06/23/2025 5:33 PM EDT [facility] UA pH 6.5 5.0 - 8.0 pH 06/23/2025 5:33 PM EDT [facility] UA Protein Negative Negative mg/dL 06/23/2025 5:33 PM EDT [facility] UA Urobilinogen Normal <=1 mg/dL 5:33 PM EDT [facility] UA Bili Negative Negative 06/23/2025 5:33 PM EDT [facility] UA Nitrite Negative Negative 06/23/2025 5:33 PM EDT [facility] UA Leuk Est Negative Negative 06/23/2025 5:33 PM EDT [facility] UA Spec Grav 1.011 1.001 - 1.035 no units 06/23/2025 5:33 PM EDT [facility] Comment:Reference range helga d for random specimens only. UA WBC 1 0 - 4 /HPF 06/23/2025 5:33 PM EDT [facility] UA RBC 1 0 - 3 /HPF 06/23/2025 5:33 PM EDT [facility] Urine STRUCTURE OF URINARY TRACT PROPER / Unknown 06/23/2025 5:11 PM EDT 06/23/2025 5:29 PM EDT Duong Vitale MD URINE ORDERABLES Final Result Performing Organization Address City/[facility] Co de Phone Number [facility] [address] [place] [address] * EXTRA HUITRON URINE CX (06/23/2025 5:11 PM EDT) Only the most recent of6 resultswithin the time period is included. Urine STRUCTURE OF URINARY TRACT PROPER / Unknown 06/23/2025 5:11 PM EDT 06/23/2025 5:29 PM EDT Duong Vitale MD MICROBIOLOGY - GENERAL ORDERA BLES Final Result Performing Organization Address [facility] de Phone Number [facility] [address] [place] [address] * (ABNORMAL) TROPONIN-T HIGH SENSITIVITY 2HR (06/23/2025 4:11 PM EDT) Only the most recent of3 resultswithin the time period is included. os-sBguhgson-Z 2HR 83(H) <14 ng/L 06/23/2025 4:36 PM EDT [facility] hs-cTnT 2Hr Delta from Baseline -9 <4 ng/L 06/23/2025 4:36 PM EDT [facility] Blood VENOUS BLOOD / Unknown Venipuncture / Unknown 06/23/2025 4:11 PM EDT 06/23/2025 4:14 PM EDT Narrative [facility] - 06/23/2025 4:36 PM EDT Ingestion of angie doses of biotin (>5 mg/day) taken within 8 hours of drawing blood sample can interfere with this immunoassay test. us Stephan Rodriguez MD CHEMISTRY ORDERABLES Final R esult [facility] [address] [place] [address] * CT ANGIOGRAM PULMONARY W CONTRAST (06/23/2025 2:57 PM EDT) Only the most recent of2 resultswithin the time period is included. Anatomical Region Laterality Modality Chest Computed Tomogra [...] Isovue 370 IV contrast as recorded in [employer]. 2-D multiplanar reconstructions and 3-D MIP reconstructions reviewed. Dose 1 : CT DLP Total : 109.65 mGycm DLP Spiral Max : 96.21 mGycm Maximum CTDI Vol : 9.53 mGy FINDINGS: Adequate visualization of the pulmonary arteries to the segmental/subsegmental level. No acute pulmonary embolism. No aortic arch aneurysm. No pneumothorax. Small left and qgrvj-xp-mhsfdrdz right pleural effusions. Emphysema. 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 Small left and lpscy-ok-wlekaipx right pleuraleffusions. Emphysema. Opacities dependently in the [...] IMG CT ORDERABLES Final Resu lt * (ABNORMAL) TROPONIN-T HIGH SENSITIVITY BASELINE W/ REFLEX (06/23/2025 1:28 PM EDT) Only the most recent of3 resultswithin the time period is included. cz-pEpprqnpy-E 92(H) <14 ng/L 06/23/2025 2:10 PM EDT [facility] Blood VENOUS BLOOD / Unknown Venipuncture / Unknown 06/23/2025 1:28 PM EDT 06/23/2025 1:35 PM EDT Narrative [facility] - 06/23/2025 2:10 PM EDT Ingestion of angie doses of biotin (>5 mg/day) taken within 8 hours of drawing blood sample can interfere with this immunoassay test. Stephan Rodriguez MD CHEMISTRY ORDERABLES Final R esult [facility] [address] [place] [address] * (ABNORMAL) PARTIAL THROMBOPLASTIN TIME (06/23/2025 1:28 PM EDT) Pathologist [facility] PTT 37.0(H) 25.7 - 36.8 second(s) 06/23/2025 1:48 PM EDT [facility] Comment: Therapeutic range for unfractionated [...] HEMATOLOGY ORDERABLES Final Result Performing Organization Address [facility] de Phone Number [facility] [address] [place] [address] * (ABNORMAL) PT / INR (06/23/2025 1:28 PM EDT) Only the most recent of3 resultswithin the time period is included. PT 15.3(H) 10.5 - 13.6 second(s) 06/23/2025 1:48 PM EDT [facility] INR 1.32(H) 0.91 - 1.18 (ratio) 06/23/2025 1:48 PM EDT [facility] Comment: Level of Therapy Indications Target INR Range Standard Dose Treatment and prophylaxis of venous 2.0 - 3.0 thrombosis, pulmonary embolism High Dose High risk patients with mechanical 2.5 - 3.5 heart valves Blood VENOUS BLOOD / Unknown Venipuncture / Unknown 06/23/2025 1:28 PM EDT 06/23/2025 1:35 PM EDT Stephan Rodriguez MD HEMATOLOGY ORDERABLES Final Result Performing Organization Address [facility] de Phone Number [facility] [address] [place] [address] * (ABNORMAL) D-DIMER (06/23/2025 1:28 PM EDT) D-Dimer 1,389(H) <=500 ng/mL FEU 06/23/2025 1:48 PM EDT [facility] Comment:This is an automated latex [...] HEMATOLOGY ORDERABLES Final Result Performing Organization Address City/State/[facility] Co de Phone Number [facility] [address] [place] [phone] * CT CERVICAL SPINE WO CONTRAST (06/12/2025 [...] DO IMG CT ORDERABLES Final Result * LACTIC ACID (06/12/2025 9:22 PM EDT) Only the most recent of3 resultswithin the time period is included. Lactic Acid 1.2 0.5 - 1.9 mmol/L 06/12/2025 9:50 PM EDT [facility] Blood VENOUS BLOOD / Unknown Venipuncture / Unknown 06/12/2025 9:22 PM EDT 06/12/2025 9:29 PM EDT us Rhina Gooden DO CHEMISTRY ORDERABLES Final Res ult [facility] [address] [place] [address] * AMMONIA LEVEL (06/12/2025 9:22 PM EDT) Pathologist [facility] Ammonia 15 11 - 51 mcmol/L 06/12/2025 9:50 PM EDT [facility] Blood VENOUS BLOOD / Unknown Venipuncture / Unknown 06/12/2025 9:22 PM EDT 06/12/2025 9:29 PM EDT us Rhina Gooden DO CHEMISTRY ORDERABLES Final Res ult [facility] [address] [place] [address] * (ABNORMAL) URINE CULTURE (NO STAIN) (06/12/2025 9:11 PM EDT) Only the most recent of4 resultswithin the time period is included. [facility] Culture Positive Growth(A) 06/15/2025 12:51 PM EDT [facility] Culture >100,000 CFU/mL Klebsiella pneumoniae SUSCEPTIB ILITY RESULT 06/15/2025 12:51 PM EDT [facility], [facility] Culture >100,000 CFU/mL Proteus mirabilis SUSCEPTIB ILITY RESULT 06/15/2025 12:51 PM EDT [facility] Comment: Confirmed positive for ESBL (extended spectrum [...] MICROBIOLOGY - GENERAL ORDERAB LES Final Result [facility] [address] [place] [address] , [place] [address] * SCANNED RHYTHM STRIPS (06/11/2025 1:28 PM EDT) Only the most recent of2 resultswithin the time period is included. Anatomical Region Laterality Modality Other 06/11/2025 1:28 PM EDT us Unknown Provider IMG ECG ORDERABLES Final Result * XR CHEST PA AND LATERAL (06/04/2025 [...] please contactthe office of the ordering clinician. Trino Montiel MD IMG DIAGNOSTIC IMAGING ORDERA BLES Final Result * (ABNORMAL) RENAL FUNCTION PANEL (06/04/2025 7:52 AM EDT) Only the most recent of5 resultswithin the time period is included. Sodium 136 136 - 145 mmol/L 06/04/2025 [...] [facility] Calcium 8.8 8.8 - 10.4 mg/dL 06/04/2025 8:30 AM EDT [facility] Glucose Lvl 135(H) 70 - 99 mg/dL 06/04/2025 8:30 AM EDT [facility] BUN 14 8 - 23 mg/dL 06/04/2025 8:30 AM EDT [facility] Creatinine 0.92 0.51 - 1.30 mg/dL 06/04/2025 8:30 AM EDT [facility] Albumin 3.1(L) 3.2 - 4.6 gm/dL 06/04/2025 8:30 AM EDT [facility] Phosphorus 3.7 2.5 - 4.5 mg/dL 06/04/2025 8:30 AM EDT [facility] eGFR (CKD-EPIcr 2020) 61 >=60 mL/min/1.7 3 m2 06/04/2025 8:30 AM EDT [facility] Comment:Estimated GFR was ca lculated using the CKD-EPIcr (2020) equation refit without race. The equation is recommended by the National Kidney Foundation - [place] [employer] of Nephrology Task Force. Blood VENOUS BLOOD / Unknown Venipuncture / Unknown 06/04/2025 7:52 AM EDT 06/04/2025 7:57 AM EDT us Stephen Pickard MD CHEMISTRY ORDERABLES Final R esult [address] , [place] [address] * VANCOMYCIN LEVEL AUC1 (05/29/2025 5:55 AM EDT) [facility] Vancomycin AUC1 12.6 mcg/mL 6:54 AM EDT [facility] Blood VENOUS STRUCTURE / Unknown Line / Unknown 05/29/2025 5:55 AM EDT 05/29/2025 6:09 AM EDT us Stephen Pickard MD CHEMISTRY ORDERABLES Final R esult Performing Organization Address City/[facility]/ZIP Co de Phone Number [facility] [address] [facility] , [place] [address] * (ABNORMAL) HEMOGLOBIN AND HEMATOCRIT (05/29/2025 12:48 AM EDT) Only the most recent of5 resultswithin the time period is included. Hgb 8.2(L) 11.2 - 15.7 g/dL 05/29/2025 12:53 AM EDT [email or web address] Hct 25.5(L) 34.0 - 45.0 % 05/29/2025 12:53 AM EDT [facility] [employer] [facility] Blood VENOUS BLOOD / Unknown Venipuncture / Unknown 05/29/2025 12:48 AM EDT 05/29/2025 12:48 AM EDT Michael Beltre MD HEMATOLOGY ORDERABLES Fin al Result Performing Organization Address [facility] Co de Phone Number [facility] [email or web address] , [place] [address] * (ABNORMAL) HEMOGLOBIN (05/28/2025 2:51 PM EDT) Only the most recent of3 resultswithin the time period is included. Hgb 7.5(L) 11.2 - 15.7 g/dL 05/28/2025 4:08 PM EDT [email or web address] Blood VENOUS BLOOD / Unknown Venipuncture / Unknown 05/28/2025 2:51 PM EDT 05/28/2025 4:00 PM EDT Stephen Pickard MD HEMATOLOGY ORDERABLES Final Result Performing Organization Address [facility] Co de Phone Number [facility] [email or web address] , [place] [address] * VANCOMYCIN LEVEL (05/27/2025 12:01 PM EDT) Vanco Random 8.4 mcg/mL 05/27/2025 12:24 PM EDT [facility] Blood VENOUS BLOOD / Unknown Venipuncture / Unknown 05/27/2025 12:01 PM EDT 05/27/2025 12:12 PM EDT Luis Manuel Mays MD CHEMISTRY ORDERABLES Final Re sult Performing Organization Address City/State/[facility] Co de Phone Number [facility] [address] [place] [address] * EC ECHOCARDIOGRAM COMPLETE W DOPPLER AND [...] regurgitation. * There is trivial pericardial effusion. us Luis Manuel Mays MD IMTamy ECHO ORDERABLES Final Res ult * CORTISOL 60 MINUTES (05/26/2025 7:36 PM EDT) Cortisol 60 Min 29.60 mcg/dL 8:26 PM EDT [facility] Blood VENOUS STRUCTURE / Unknown Venipuncture / Unknown 05/26/2025 7:36 PM EDT 05/26/2025 7:43 PM EDT Narrative [facility] - 05/26/2025 8:26 PM EDT Test performed using Hom[employer] Elecsys Cortisol II assay. Stimulated cortisol reference value not established by this laboratory. us Stephen Pickard MD CHEMISTRY ORDERABLES Final R esult Performing Organization Address City/[facility]/ZIP Co de Phone Number [facility] [email or web address] , [place] [address] * CORTISOL 30 MINUTES (05/26/2025 7:05 PM EDT) Cortisol 30 Min 25.20 mcg/dL 8:03 PM EDT [facility] Blood VENOUS BLOOD / Unknown Venipuncture / Unknown 05/26/2025 7:05 PM EDT 05/26/2025 7:19 PM EDT Narrative [facility] - 05/26/2025 8:03 PM EDT Test performed using [employer] Cortisol II assay. Stimulated cortisol reference value not established by this laboratory. us Stephen Pickard MD CHEMISTRY ORDERABLES Final R esult Performing Organization Address City/[facility]/ZIP Co de Phone Number [facility] [email or web address] , [place] [address] * CORTISOL BASELINE (05/26/2025 6:49 PM EDT) Cortisol Baseline 11.20 mcg/dL 05/26/2025 7:39 PM EDT [facility] Blood VENOUS BLOOD / Unknown Venipuncture / Unknown 05/26/2025 6:49 PM EDT 05/26/2025 6:49 PM EDT Narrative [facility] - 05/26/2025 7:39 PM EDT AM: 4.82 [...] us Stephen Pickard MD CHEMISTRY ORDERABLES Final [facility] Performing Organization Address [facility] Co de Phone Number [facility] [address], [place] [address] * (ABNORMAL) TROPONIN-T HIGH SENSITIVITY 6 HR (05/26/2025 6:26 PM EDT) [facility] mc-cDsmudahv-H 6HR 59(H) <14 ng/L 05/26/2025 6:55 PM EDT [facility] hs-cTnT 6Hr Delta from Baseline -3 <12 ng/L 05/26/2025 6:55 PM EDT [facility] Blood VENOUS STRUCTURE / Unknown Venipuncture / Unknown 05/26/2025 6:26 PM EDT 05/26/2025 6:39 PM EDT Narrative [facility] - 05/26/2025 6:55 PM EDT Ingestion of angie doses of biotin (>5 mg/day) taken within 8 hours of drawing blood sample can interfere with this immunoassay test. us Stephen Pickard MD CHEMISTRY ORDERABLES Final [facility] Performing Organization Address [facility] Co de Phone Number [address] [place] [address] [address] * STAPHYLOCOCCUS AUREUS SCREEN (05/26/2025 4:24 PM EDT) Pathologist [facility] Staph aureus PCR Not Detected Not Detected 05/26/2025 6:20 PM EDT [facility] [employer], [facility] MRSA PCR Not Detected Not Detected 05/26/2025 6:20 PM EDT [facility] [employer], [facility] Swab BOTH ANTERIOR NARES / Unknown 05/26/2025 4:24 PM EDT 05/26/2025 4:40 PM EDT Narrative [facility] - 05/26/2025 6:20 PM EDT Staphylococcus aureus target DNA sequence is not detected. This qualitative assay is intended for the detection of Staphylococcus aureus proprietary sequences for the staphylococcal protein A (spa) gene, the gene for methicillin resistance (mecA), and the staphylococcal cassette chromosome mec (SCCmec) inserted into the SA chromosomal attB site. This assay utilizes real time PCR on the [employer] GeneXpert Infinity, and its performance has been verified by the [facility]. A negative result does not rule [...] has been developed and validated by the [facility] laboratory. Detailed methodology is available upon request. Luis Manuel Mays MD MICROBIOLOGY - GENERAL ORDERA BLES Final Result Performing Organization Address City/[facility]/ZIP Co de Phone Number [facility] [employer], [address] , [place] [address] * IONIZED CALCIUM - INPATIENT (05/26/2025 4:17 PM EDT) Pathologist [facility] Calcium Ionized 1.13 1.12 - 1.32 mmol/L 05/26/2025 4:29 PM EDT [facility] [employer], [facility] Blood VENOUS BLOOD / Unknown Venipuncture / Unknown 05/26/2025 4:17 PM EDT 05/26/2025 4:25 PM EDT Luis Manuel Mays MD CHEMISTRY ORDERABLES Final Re sult [employer] [address] , [address] [place] [id number] * BB HISTORY CHECK (05/26/2025 4:17 PM EDT) Only the most recent of2 resultswithin the time period is included. [facility] BB HISTORY CHECK (1) Previous History OK 05/26/2025 11:40 PM EDT [facility] Blood VENOUS BLOOD / Unknown Venipuncture / Unknown 05/26/2025 4:17 PM EDT 05/26/2025 4:21 PM EDT us Luis Manuel Mays MD BLOOD BANK ORDERABLES Final R esult Performing Organization Address [facility] Co de Phone Number [facility]RIC BLOOD BANK [address] [place] [address] * POTASSIUM WHOLE BLOOD (05/26/2025 4:17 PM EDT) [facility] K-WB 4.6 3.5 - 5.0 mEq/L 05/26/2025 4:29 PM EDT [facility] Blood VENOUS BLOOD / Unknown Venipuncture / Unknown 05/26/2025 4:17 PM EDT 05/26/2025 4:25 PM EDT us Luis Manuel Mays MD CHEMISTRY ORDERABLES Final Re sult Performing Organization Address City/[facility]/ZIP Co de Phone Number [employer] [address] [place] [address] , [place] [address] * ABORH (05/26/2025 4:17 PM EDT) Only the most recent of2 resultswithin the time period is included. [facility] ABORH Int A POS 05/26/2025 11:40 PM EDT [facility] B[facility] Blood VENOUS BLOOD / Unknown Venipuncture / Unknown 05/26/2025 4:17 PM EDT 05/26/2025 4:21 PM EDT Luis Manuel Mays MD BLOOD BANK ORDERABLES Final R esult Performing Organization Address [facility] [place] [address] * FIBRINOGEN (05/26/2025 4:17 PM EDT) Only the most recent of2 resultswithin the time period is included. Fibrinogen 312 196 - 444 mg/dL 05/26/2025 4:38 PM EDT [facility] [employer] Blood VENOUS BLOOD / Unknown Venipuncture / Unknown 05/26/2025 4:17 PM EDT 05/26/2025 4:21 PM EDT Stephen Pickard MD HEMATOLOGY ORDERABLES Final Result Performing Organization Address [facility] Co de Phone Number [facility] [address], [place] [address] * RED BLOOD CELLS REQUEST (05/26/2025 4:17 PM EDT) Only the most recent of4 resultswithin the time period is included. Product Code [id number] [facility] BLOOD BANK Unit Number [id number] [facility] Crossmatch Interp Compatible PSYCHIATRIC BLOOD [facility] Dispense Status RETURNED [facility] Blood Expiration Date [id number] PSYCHIATRIC BLOOD [facility] ISBT 128 Type 6200 [facility] BLOOD [facility] Blood Unit Volume 300 ml PSYCHIATRIC BLOOD [facility] BA CODING SYSTEM [id number] [facility] Blood Type (Unit) A POS PSYCHIATRIC BLOOD [facility] 05/26/2025 4:17 PM EDT 05/26/2025 4:21 PM EDT Luis Manuel Mays MD BLOOD PRODUCT ORDERS Final Re sult Performing Organization Address [facility]/ZIP Co de Phone [place] [address] * ANTIBODY SCREEN IGG (05/26/2025 4:17 PM EDT) Only the most recent of2 resultswithin the time period is included. [facility] ABSC IgG Int Negative 05/26/2025 11:40 PM EDT [facility] BANK Blood VENOUS BLOOD / Unknown Venipuncture / Unknown 05/26/2025 4:17 PM EDT 05/26/2025 4:21 PM EDT Luis Manuel Mays MD BLOOD BANK ORDERABLES Final R esult Performing Organization Address City/[facility]/ZIP Co de Phone Number PSYCHIATRIC BLOOD BANK [address] [place] [address] * (ABNORMAL) ADRENOCORTICOTROPIC HORMONE -REF LAB (05/26/2025 3:20 PM EDT) [facility] ACTH 3.3(L) 7.2 - 63.3 pg/mL 05/28/2025 7:58 PM EDT [employer] Comment: INTERPRETIVE INFORMATION: Adrenocorticotropic Hormone Reference interval based on samples collected between 7 a.m. and 10 a.m. No reference intervals established for p.m. collections. Pediatric reference values are the same as adults (Acta Paediatr Scand 1981;70:341-345). This assay measures intact ACTH 1-39; some types of synthetic ACTH and ACTH fragments are not detected by this assay. Performed By: [facility] [address] [place] [address] Head Mixer: Gigi Cheney MD, PhD CLIA Number: [id number] Blood VENOUS BLOOD / Unknown Venipuncture / Unknown 05/26/2025 3:20 PM EDT 05/26/2025 3:23 PM EDT Stephen Pickard MD CHEMISTRY ORDERABLES Final R esult Performing Organization Address City/[facility]/ZIP Co de Phone Number [employer] [address] [place], [place] [id number] * CORTISOL (05/26/2025 2:11 PM EDT) [facility] Cortisol 7.55 mcg/dL 05/26/2025 2:5 1 PM EDT [facility] Blood VENOUS BLOOD / Unknown Venipuncture / Unknown 05/26/2025 2:11 PM EDT 05/26/2025 2:15 PM EDT Narrative [facility] - 05/26/2025 2:51 PM EDT AM: [...] Pickard MD CHEMISTRY ORDERABLES Final R esult [facility] [address] , [place] [address] * (ABNORMAL) HEPATIC FUNCTION PANEL (05/26/2025 2:11 PM EDT) [facility] Total Protein 4.9(L) 6.4 - 8.3 gm/dL 05/26/2025 6:41 PM EDT [facility] [email or web address], [facility] Albumin 2.9(L) 3.2 - 4.6 gm/dL 05/26/2025 6:41 PM EDT [facility] [email or web address], [facility] Bili Direct 0.4(H) 0.0 - 0.3 mg/dL 05/26/2025 6:41 PM EDT [facility] [email or web address], [facility] Bili Total 0.8 0.2 - 1.3 mg/dL 05/26/2025 6:41 PM EDT [facility] [email or web address], [facility] AST 16 <=40 U/L 05/26/2025 6:41 PM EDT [facility] [email or web address], [facility] ALT 9 <=41 U/L 05/26/2025 6:41 PM EDT [facility] [email or web address] Alk Phos 103 36 - 123 U/L 05/26/2025 6:41 PM EDT [employer] Blood VENOUS BLOOD / Unknown Venipuncture / Unknown 05/26/2025 2:11 PM EDT 05/26/2025 2:15 PM EDT Luis Manuel Mays MD CHEMISTRY ORDERABLES Final Re sult [employer] [address] [facility] , [place] [address] * PROCALCITONIN (05/26/2025 1:00 PM EDT) Only the most recent of2 resultswithin the time period is included. Procalcitonin 0.08 <=0.49 ng/mL 05/26/2025 1:55 PM EDT [employer] Blood VENOUS BLOOD / Unknown Venipuncture / Unknown 05/26/2025 1:00 PM EDT 05/26/2025 1:18 PM EDT Narrative [facility] - 05/26/2025 1:55 PM EDT Procalcitonin <0.50 [...] R esult Performing Organization Address [facility] Co de Phone Number [facility] [address], [place] [address] * BLOOD CULTURE (NO STAIN) (05/26/2025 11:58 AM EDT) Only the most recent of4 resultswithin the time period is included. Culture Result No Growth at 120 hours. BLOOD CULTURE (NO STAIN) 05/31/2025 1:00 PM EDT [employer] Blood VENOUS BLOOD / Unknown Venipuncture / Unknown 05/26/2025 11:58 AM EDT 05/26/2025 12:03 PM EDT us Stephen Pickard MD MICROBIOLOGY - GENERAL ORDER CELESTE Final Result Performing Organization Address [facility] de Phone Number [facility] [address] , [place] [address] * TRANSFUSE RED BLOOD CELLS (05/24/2025 10:43 AM EDT) Only the most recent of2 resultswithin the time period is included. Vargas Wolf MD NURSING TREATMENT ORDERABLE S - BLOOD ADMIN Edited Result - Final * PATHOLOGY TISSUE REQUEST (05/24/2025 8:41 AM EDT) CASE REPORT Surgical Pathology Case: [id number] Authorizing Provider: Vargas Wolf MD Collected: 05/24/2025 0841 Ordering Location: [facility] Received: 05/24/2025 1101 Pathologist: Addie Barakat MD Specimen: Leg, Left, Left Leg and knee 05/29/2025 3:42 PM EDT [facility] FINAL DIAGNOSIS Left leg and knee, [id number] amputation: - Ulcer and soft tissue necrosis at previous amputation site. - Atherosclerosis. - Focal areas of necrosis and acute inflammation consistent with acute osteomyelitis. - Skin and soft tissue margins are viable. - Bone margin is negative for acute osteomyelitis. 05/29/2025 3:42 PM EDT [facility] at 1542 EDT GROSS [...] soft tissue margins; Green - femoral vessels; [place] - anterior tibial vessels; Black - posterior tibial vessels. The previous amputation site has an 11.9 x 3.4 cm partially crusted partially ulcerated red-brown hemorrhagic lesion with blue sutures present that is 42.3 cm from the closest skin and soft tissue margin. The underlying bone is foster, trabeculated, and soft. The surrounding skin is purple and discolored and the underlying soft tissue is red-brown, hemorrhagic with liquefactive areas. The vessels are diffusely calcified and up to 95% stenotic. [employer] sections are submitted as follows: A1: Bone marrow from margin, in a biopsy bag and following Decal Stat A2: Skin and soft tissue margin, perpendicularly sectioned A3: Lesion to underlying bone, following Decal Stat A4: Mid cross sections of vessels with stenotic and calcified areas, following Decal Stat Kesha Cerda MS, PA (ASC) 05/27/2025 05/29/2025 3:42 PM EDT [facility] MICROSCOPIC DESCRIPTION The microscopic examination may have been rendered in whole, or in part, by analyzing high-resolution digital images (whole slide images) on the [employer] Digital Pathology platform validated at [facility]. 05/29/2025 3:42 PM EDT [facility] EMBEDDED IMAGES 05/29/2025 3:42 PM EDT [facility] Tissue STRUCTURE OF LEFT LOWER LEG / Unknown 05/24/2025 8:41 AM EDT 05/24/2025 11:01 AM EDT us Vargas Wolf MD PATHOLOGY ORDERABLES Final Result Performing Organization Address [facility] Co de Phone Number [facility] [address] [place] [id number] [address] [place] [address] [address] * INTRAOP AIRWAY PLACEMENT (05/24/2025 8:13 AM EDT) Narrative [facility] - 05/24/2025 8:13 AM EDT Maite Luna CRNA 05/24/2025 8:18 AM Intraop Airway Placement: Date/Time: 05/24/2025 8:13 AM Induction type: IV Pre-Oxygenation: Reverse trendelenberg Mask ventilation: Easy mask ventilation Airway type: LMA Topical Anesthetic/Lubricant: Lubricant jelly Airway location: Oral Device size: 3 Placement verified: Auscultation, End tidal CO2 and Symmetric chest wall motion Condition: Atraumatic and Unchanged Insertion attempts: 1 Title: LEAD MINER BLASTING Tano Justice DO NM ANESTHESIA Final Result Performing Organization Address [facility] de Phone Number [address] [address] * Peripheral Block by Anesthesia (05/24/2025 7:53 AM EDT) Narrative [facility] - 05/24/2025 7:53 AM EDT Tano [...] normal Intermittent incremental injection LA at 5ml Tano Justice DO ANESTHESIA ORDERABLES Final R esult Performing Organization Address [facility] Co de Phone Number [facility] [address] [place] [address] * US ANES GUIDANCE FOR NERVE BLOCK (05/24/2025 7:18 AM EDT) Narrative Frida Pearce - 05/24/2025 7:18 AM EDT Ultrasound guided nerve block performed by Anesthesiologist The study image(s) are for reference only and will not be interpreted by a Radiologist. Refer to the Anesthesia procedure note for image description and procedure details. Rosanna Gallagher MD IMG US ORDERABLES Final Re sult * (ABNORMAL) IRON+TIBC (05/21/2025 7:18 AM EDT) Iron 41 30 - 160 mcg/dL 05/21/2025 7:57 AM EDT [facility] Transferrin 182(L) 200 - 360 mg/dL 05/21/2025 7:57 AM EDT [facility] Transferrin Saturation 16(L) 20 - 50 % 05/21/2025 7:57 AM EDT [facility], [facility] TIBC 255 250 - 400 mcg/dL 05/21/2025 7:57 AM EDT [facility], [facility] Blood VENOUS BLOOD / Unknown Venipuncture / Unknown 05/21/2025 7:18 AM EDT 05/21/2025 7:22 AM EDT Carlos Manuel Landaverde II, MD CHEMISTRY ORDERABLES Mita l Result Performing Organization Address City/[facility]/ZIP Co de Phone Number [facility], [address], [address] [place] [phone] * VITAMIN B12/ FOLIC ACID (05/21/2025 7:18 AM EDT) Vitamin B12 806 232 - 1,245 pg/mL 05/21/2025 8:20 AM EDT [facility] Folate >16.00 >=4.80 ng/mL 05/21/2025 8:20 AM EDT [facility] Blood VENOUS BLOOD / Unknown Venipuncture / Unknown 05/21/2025 7:18 AM EDT 05/21/2025 7:22 AM EDT Narrative [facility] - 05/21/2025 8:20 AM EDT Ingestion of angie doses of biotin (>5 mg/day) taken within 8 hours of drawing blood sample can interfere with this immunoassay test. Carlos Manuel Landaverde II, MD CHEMISTRY ORDERABLES Mita l Result [facility] [address] [facility] [address], [place] [address] * PERIPHERAL SMEAR/PATH REVIEW (05/21/2025 7:18 AM [...] Sujata Benitez MD 05/22/2025 5:33 PM EDT [facility] Blood VENOUS BLOOD / Unknown Venipuncture / Unknown 05/21/2025 7:18 AM EDT 05/21/2025 7:22 AM EDT us Stephen Pickard MD HEMATOLOGY ORDERABLES Final Result [place] [phone] * XR ABDOMEN AP (05/19/2025 8:00 AM [...] DIAGNOSTIC IMAGING OR DERABLES Final Result * IR ULTRASOUND GUIDED VASCULAR ACCESS (05/10/2025 2:06 PM EDT) Anatomical Region Laterality Modality Interventional R adiology Narrative 05/19/2025 3:05 PM EDT DATE OF PROCEDURE: 05/10/2025 PREOPERATIVE DIAGNOSES: LLE critical limb ischemia, History of L TMA, PAD POSTOPERATIVE DIAGNOSES: Same PROCEDURE PERFORMED: 1. US guided access of the right common femoral artery 2. Abdominal aortogram. Selection of L SFA via R DETHISTLER OPERATOR (3rd order) with left lower extremity angiogram. Selection of WASHING MACHINE ASSEMBLER with additional angiogram. Radiographic supervision and interpretation 3. RLE angiogram. Radiographic supervision and interpretation Mynx closure of 5 Fr arteriotomy SURGEON: Vargas Wolf MD ANESTHESIA: General anesthesia FLUOROSCOPY: Dose: [...] TPT and peroneal artery, reconstitution of proximal WASHING MACHINE ASSEMBLER with mid and distal WASHING MACHINE ASSEMBLER with multifocal severe stenosis of proximal and mid WASHING MACHINE ASSEMBLER but occluded distally without reconstitution. Significant small [...] with severe stenosis, patent proximal and mid WASHING MACHINE ASSEMBLER with multifocal severe stenosis, patent peroneal artery Significant small vessel disease in L foot INDICATIONS: Skyler Bautista is a 84 y.o. female with PMHx significant for PAD s/p pelvic angiogram with bilateral NILAY stents s/p LLE angiogram with WASHING MACHINE ASSEMBLER of popliteal artery, TPT and peroneal artery [...] a hemostat. Under ultrasound guidance, the R DETHISTLER OPERATOR was accessed using a micropuncture needle. X-ray [...] an 11 cm 5 Fr sheath. Next, Zuvvuson wire and Omniflush catheter were advanced to [...] and catheter were used to select the WASHING MACHINE ASSEMBLER to better evaluate if it reconstituted distally. After the WASHING MACHINE ASSEMBLER was selected, an angiogram was obtained, which [...] procedure. SUMMARY: Significant small vessel disease. Occluded WASHING MACHINE ASSEMBLER and DAREN distally without reconstitution. RECOMMENDATIONS: Bed rest for 3 hours. Recommend proximal LLE amputation. Voice recognition technology was used to complete this note, and it may contain unintended errors despite the writer editor's best efforts to proofread it. Please contact me with questions. TID: [id number] us Vargas Wolf MD IMG IR ORDERABLES Final Res ult * IR ANGIOGRAM FEMORAL ARTERIO SHIFT (05/10/2025 2:06 PM EDT) Anatomical Region Laterality Modality Interventional R adiology Narrative 05/19/2025 3:05 PM EDT DATE OF PROCEDURE: 05/10/2025 PREOPERATIVE DIAGNOSES: LLE critical limb ischemia, History of L TMA, PAD POSTOPERATIVE DIAGNOSES: Same PROCEDURE PERFORMED: 1. US guided access of the right common femoral artery 2. Abdominal aortogram. Selection of L SFA via R DETHISTLER OPERATOR (3rd order) with left lower extremity angiogram. Selection of WASHING MACHINE ASSEMBLER with additional angiogram. Radiographic supervision and interpretation 3. RLE angiogram. Radiographic supervision and interpretation Mynx closure of 5 Fr arteriotomy SURGEON: Vargas Wolf MD ANESTHESIA: General anesthesia FLUOROSCOPY: Dose: [...] TPT and peroneal artery, reconstitution of proximal WASHING MACHINE ASSEMBLER with mid and distal WASHING MACHINE ASSEMBLER with multifocal severe stenosis of proximal and mid WASHING MACHINE ASSEMBLER but occluded distally without reconstitution. Significant small [...] with severe stenosis, patent proximal and mid WASHING MACHINE ASSEMBLER with multifocal severe stenosis, patent peroneal artery Significant small vessel disease in L foot INDICATIONS: Skyler Bautista is a 84 y.o. female with PMHx significant for PAD s/p pelvic angiogram with bilateral NILAY stents s/p LLE angiogram with WASHING MACHINE ASSEMBLER of popliteal artery, TPT and peroneal artery [...] a hemostat. Under ultrasound guidance, the R DETHISTLER OPERATOR was accessed using a micropuncture needle. X-ray [...] and catheter were used to select the WASHING MACHINE ASSEMBLER to better evaluate if it reconstituted distally. After the WASHING MACHINE ASSEMBLER was selected, an angiogram was obtained, which [...] procedure. SUMMARY: Significant small vessel disease. Occluded WASHING MACHINE ASSEMBLER and DAREN distally without reconstitution. RECOMMENDATIONS: Bed rest for 3 hours. Recommend proximal LLE amputation. Voice recognition technology was used to complete this note, and it may contain unintended errors despite the writer editor's best efforts to proofread it. Please contact me with questions. TID: [id number] us Vargas Wolf MD IMG IR ORDERABLES Final Res [...] aortogram. Selection of L SFA via R DETHISTLER OPERATOR (3rd order) with left lower extremity angiogram. Selection of WASHING MACHINE ASSEMBLER with additional angiogram. Radiographic supervision and interpretation 3. RLE angiogram. Radiographic supervision and interpretation Mynx closure of 5 Fr arteriotomy SURGEON: Vargas Wolf MD ANESTHESIA: General anesthesia FLUOROSCOPY: Dose: [...] TPT and peroneal artery, reconstitution of proximal WASHING MACHINE ASSEMBLER with mid and distal WASHING MACHINE ASSEMBLER with multifocal severe stenosis of proximal and mid WASHING MACHINE ASSEMBLER but occluded distally without reconstitution. Significant small [...] with severe stenosis, patent proximal and mid WASHING MACHINE ASSEMBLER with multifocal severe stenosis, patent peroneal artery Significant small vessel disease in L foot INDICATIONS: Skyler Bautista is a 84 y.o. female with PMHx significant for PAD s/p pelvic angiogram with bilateral NILAY stents s/p LLE angiogram with WASHING MACHINE ASSEMBLER of popliteal artery, TPT and peroneal artery [...] a hemostat. Under ultrasound guidance, the R DETHISTLER OPERATOR was accessed using a micropuncture needle. X-ray [...] an 11 cm 5 Fr sheath. Next, Zuvvuson wire and Omniflush catheter were advanced to [...] and catheter were used to select the WASHING MACHINE ASSEMBLER to better evaluate if it reconstituted distally. After the WASHING MACHINE ASSEMBLER was selected, an angiogram was obtained, which [...] procedure. SUMMARY: Significant small vessel disease. Occluded WASHING MACHINE ASSEMBLER and DAREN distally without reconstitution. RECOMMENDATIONS: Bed rest for 3 hours. Recommend proximal LLE amputation. Voice recognition technology was used to complete this note, and it may contain unintended errors despite the writer editor's best efforts to proofread it. Please contact me with questions. TID: [id number] us Vargas Wolf MD IMG IR ORDERABLES Final Res ult * INTRAOP AIRWAY PLACEMENT (05/10/2025 12:26 PM EDT) Narrative [facility] - 05/10/2025 12:26 PM EDT Tatum Vasquez CRNA 05/10/2025 12:38 PM Intraop Airway Placement: Date/Time: 05/10/2025 12:26 PM Induction type: IV Mask size: Standard adult Pre-Oxygenation: Standard Mask ventilation: Easy mask ventilation Technique: Video laryngoscope Laryngoscope blade: Winn Blade size: 3 Grade view: I Airway type: ETT- cuffed Topical Anesthetic/Lubricant: None Intubation assist devices: Stylet 14fr Airway location: Oral Device size: 7mm Secured at: 21 cm Secured by: Tape Measured from: Lips Placement verified: End tidal CO2 and Symmetric chest wall motion Condition: Unchanged and Atraumatic Insertion attempts: 1 Title: LEAD MINER BLASTING us Manuel Noland MD [place] ANESTHESIA Edited Result - Final [facility] [address] [place] [address] * POTASSIUM REPEAT (05/06/2025 9:19 AM EDT) Potassium 4.8 3.5 - 5.0 mmol/L 05/06/2025 9:56 AM EDT [facility]ED [facility] Blood VENOUS BLOOD / Unknown Venipuncture / Unknown 05/06/2025 9:19 AM EDT 05/06/2025 9:23 AM EDT us Geo Guallpa MD CHEMISTRY ORDERABLES Final Resul t [facility] [address] [facility] , [place] [address] * MRI FOOT LEFT WO CONTRAST (05/03/2025 [...] without a loculated fluid collection. Procedure Note Gerhard Smith MD - 05/03/2025 MRI FOOT LEFT [...] IMG MRI ORDERABLES Final Re sult * HEMOGLOBIN A1C (05/03/2025 6:37 AM EDT) Hgb A1C 5.3 4.2 - 5.6 % 05/05/2025 3:53 PM EDT [employer] Est. Avg Glucose 105 mg/dL 05/05/2025 3:53 PM EDT [employer] [facility] Blood VENOUS BLOOD / Unknown Venipuncture / Unknown 05/03/2025 6:37 AM EDT 05/03/2025 7:14 AM EDT Narrative [employer] [facility] - 05/05/2025 3:53 PM EDT REFERENCE RANGE: Normal: 4.0-5.6% Pre-diabetes: 5.7-6.4% Provisional diagnosis of diabetes: >6.4% Hgb F>10% and anything which shortens red cell survival, such as hemolytic anemia, or unstable hemoglobin variants such as HbSS, HbSC, or HbCC, will lower the HbA1c value associated with a given level of glycemic control. Geo Guallpa MD CHEMISTRY ORDERABLES Final Resul t [facility] [address] [facility] , [place] [address] * [facility] LOWER EXTREMITY ARTERIAL DUPLEX COMPLETE [...] IMG VASCULAR ORDERABLES Fin al Result * REPEAT LACTIC ACID (04/30/2025 7:30 PM EDT) Lactic Acid 1.3 0.5 - 1.9 mmol/L 04/30/2025 8:06 PM EDT [facility] Blood VENOUS BLOOD / Unknown Venipuncture / Unknown 04/30/2025 7:30 PM EDT 04/30/2025 7:57 PM EDT us Donnie Kaur MD CHEMISTRY ORDERABLES Final Result [facility] [address] [place] [id number] * XR FOOT LEFT AP LATERAL AND [...] Result [facility] Donnie Kaur MD IMG DIAGNOSTIC IMAGIN G ORDERABLES Final Result * SEDIMENTATION RATE AUTOMATED (04/30/2025 5:15 PM EDT) Sed Rate 9 0 - 30 mm/hr 04/30/2025 5:42 PM EDT [facility] Blood VENOUS BLOOD / Unknown Venipuncture / Unknown 04/30/2025 5:15 PM EDT 04/30/2025 5:29 PM EDT Donnie Kaur MD HEMATOLOGY ORDERABLES Final Result Performing Organization Address [facility] Co de Phone Number [employer] [address] [place] [address] , [place] [address] * C-REACTIVE PROTEIN (04/30/2025 5:15 PM EDT) Pathologist [facility] CRP <3.00 <=5.00 mg/L 04/30/2025 6:08 PM EDT [employer] Blood VENOUS BLOOD / Unknown Venipuncture / Unknown 04/30/2025 5:15 PM EDT 04/30/2025 5:29 PM EDT Result [facility] Donnie Kaur MD CHEMISTRY ORDERABLES Final Result Performing Organization Address City/[facility] Co de Phone Number [facility] [address] [facility] , [place] [address] from Last 3 Months Additional Health Concerns Infection Onset Date Last Indicated ESBL organism Comment:ESBL urine: 05/23, 06/1205/23/2025 06/12/2025 [place] Advance Directives For more information, please contact: [phone] * DNR (Latest Code Status on File) Date Activated Date Inactivated Comments 06/24/2025 11:57 AM 07/02/2025 3:18 PM * DNR Date Activated Date Inactivated Comments 06/24/2025 8:24 AM 06/24/2025 11:56 AM * Full Code Date Activated Date Inactivated Comments 06/23/2025 3:40 PM 06/24/2025 8:24 AM * DNR Date Activated Date Inactivated Comments 05/27/2025 3:19 PM 06/10/2025 8:12 PM * Full Code Date Activated Date Inactivated Comments 05/26/2025 3:51 PM 05/27/2025 3:19 PM Care Teams Market Research Executive Relationship Specialty Start Date End Date No Pcp, Per Patient PCP - General 06/04/24
--- OUTSIDE RECORDS SUMMARY | 2025-07-24 06:52 | XMS_ITS | Encounter Summary ---
Author Organization [employer] ([place], [place], [place], [place]) Address [address] [place] [address] Care Team Providers Care Education Supervisor Name Role Phone Jay Howell MD Primary Care Provider [phone] Encounter Details Date Type Department Care Team (Late st Contact Info) Description 06/13/2020 Transcribed Document [facility] [place] Family Medicine [address] [place] [address] ProviderJessie MD [address] [place] [address] Social History Tobacco Use Types Packs/Day Years [...] Legal Guardian : Responsible adult Support Person/Patient Forestry Aid Technician : Yes Support Person/Pt Rep Name : [place] Contact Password : Marvin Support Person/Pt Rep Contact Information : [phone] Want Family/Rep/Phys Notified of Admit : No [...] Obtained From : Patient Primary Language : Sierra Leonean Preferred Communication Mode : Verbal Communication Barrier : None Video Journalist Needed : No PAUL GERBER RN - [...] Scale Risk Level : 25-45 Medium Risk [place] Fall Interventions : Adequate lighting, Bed in [...] Source : Stated Height Entry Format : [place] Height, Feet : 5 ft(Converted to: 152 cm, 60 Inch) Height, Inches : 3 Inch(Converted to: 0 ft 3 Inch, 7.62 cm) Clinical Height : 160.02 cm Weight Source : Bed scale Weight Entry Format : [place] Clinical Dosing Weight : 75.32 kg Weight, Pounds : 165.7 lb Body Surface Area (BSA) : 1.79 m2 Body Mass Index : 29.4 kg/m2 (HI) [place] Body Weight : 52 kg PAUL GERBER [...] PAUL GERBER RN - 06/13/2020 3:09 EDT [place] Suicide Severity Rating Scale (C-SSRS) CSSRS Past [...] Any Spiritual/Cultural Needs or Requests : Yes Zoroastrianism Preference : Religion Spiritual/Cult Concerns/Desires/Needs : Prayer Spiritual/Cultural Needs Comment [...] on filedocumented in this encounter Care Teams Education Supervisor Relationship Specialty Start Date End Date Jay Howell MD [address] [place] [phone] PCP - General Emergency Medicine 11/12/23 documented as of this encounter
--- OUTSIDE RECORDS SUMMARY | 2025-07-24 06:52 | XMS_ITS | Encounter Summary ---
Author Organization [employer] ([place], [place], [place], [place]) Address [address] [place] [address] Care Team Providers Care Nightman Name Role Phone Jay Howell MD Primary Care Provider [phone] Encounter Details Date Type Department Care Team (Late st Contact Info) Description 06/13/2020 Transcribed Document [facility] [place] Family Medicine [address] [place] [address] ProviderJessie MD [address] [place] [address] Social History Tobacco Use Types Packs/Day Years [...] On: 06/13/2020 13:24 EDT by JEFE SHELTON, Quality Assurance Manager-Stencil Cutter Initial Assessment I Previously Documented Living Environment [...] Listed? : Yes Medical Durable Power of Marble Cutter Operator Name : No JEFE SHELTON Quality Assurance Manager-Stencil Cutter - 06/13/2020 13:24 EDT Initial Assessment II Sensory and Motor Deficits : Weakness Current Home Treatments and Equipment : CPAP, Walker JEFE SHELTON Quality Assurance Manager-Stencil Cutter - 06/13/2020 13:24 EDT Discharge Needs I Anticipated Discharge To, CM : Home with home health Current Home Treatment/Equipment : Current Home Treatment/Equipment No qualifying data available. Post Acute/Home Treatments : None Documentation Status Complete : Yes JEFE SHELTON Social Worker-Stencil Cutter - 06/13/2020 13:24 EDT Discharge Needs II Professional Skilled Services : Professional Skilled Services No qualifying data available. Needs Assistance with Transportation : No Discharge Options Discussed with Patient : Acute rehabilitation, Discharge transportation, DME, Home Health, Short term rehabilitation JEFE SHELTON Quality Assurance Manager-Stencil Cutter - 06/13/2020 13:24 EDT Narrative Note Narrative Note : Patient is a low readmission risk of 38. Patient reported that she had HH in 2008 after a hip replacement. Patient stated that she has also been inpatient at [facility]. Patient reported that she is ADL independent but uses a walker when she walks around the park. Patient reported that she has transportation home. She denied having any discharge needs. Cm will continue to follow. JEFE SHELTON Quality Assurance Manager-Stencil Cutter - 06/13/2020 13:24 EDT documented in this encounter Plan of Treatment Not on file documented as of this encounter Visit Diagnoses Not on filedocumented in this encounter Care Teams Nightman Relationship Specialty Start Date End Date Jay Howell MD [address] [place] [phone] PCP - General Emergency Medicine 11/12/23 documented as of this encounter
--- OUTSIDE RECORDS SUMMARY | 2025-07-24 06:52 | XMS_ITS | Encounter Summary ---
Author Organization [employer] ([place], [place], [place], [place]) Address [address] [place] [address] Care Team Providers Care Speech Assistant Name Role Phone Jay Howell MD Primary Care Provider [phone] Encounter Details Date Type Department Care Team (Late st Contact Info) Description 06/13/2020 Transcribed Document [facility] Family Medicine [address] [place] [address] ProviderJessie MD [address] [place] [address] Social History Tobacco Use Types Packs/Day Years [...] 06/13/2020 6:12 EDT Electronically signed by Sivan [facility] Conversion Diesel Engine Operator Cerner at 02/04/2023 2:05 PM CDT documented in this encounter Plan of Treatment Not on file documented as of this encounter Visit Diagnoses Not on filedocumented in this encounter Care Teams Speech Assistant Relationship Specialty Start Date End Date Jay Howell MD [address] [place] [phone] PCP - General Emergency Medicine 11/12/23 documented as of this encounter
--- OUTSIDE RECORDS SUMMARY | 2025-07-24 06:52 | XMS_ITS | Encounter Summary ---
Author Organization [employer] ([place], [place], [place], [place]) Address [address] [place] [address] Care Team Providers Care Pro Shop Attendant Name Role Phone Jay Howell MD Primary Care Provider [phone] Encounter Details Date Type Department Care Team (Late st Contact Info) Description 06/13/2020 Transcribed Document [facility] [place] Family Medicine [address] [place] [address] ProviderJessie MD [address] [place] [address] Social History Tobacco Use Types Packs/Day Years [...] on filedocumented in this encounter Care Teams Pro Shop Attendant Relationship Specialty Start Date End Date Jay Howell MD [address] [place] [phone] PCP - General Emergency Medicine 11/12/23 documented as of this encounter
--- OUTSIDE RECORDS SUMMARY | 2025-07-24 06:52 | XMS_ITS | Encounter Summary ---
Author Organization [employer] ([place], [place], [place], [place]) Address [address] [place] [address] Care Team Providers Care Lacing String Cutter Name Role Phone Jay Howell MD Primary Care Provider [phone] Encounter Details Date Type Department Care Team (Late st Contact Info) Description 06/13/2020 Transcribed Document [facility] [place] Family Medicine [address] [place] [address] Jessie Yuen MD [address] [place] [address] Social History Tobacco Use Types Packs/Day Years [...] Chart was reviewed. Time spent, 55 minutes. /[id number] MD MCKAY Priest/NABOR / MCKAY / BONILLAL CC: Dr. Avtar Moeller Electronically signed by [facility], [facility] Conversion Senior Javascript Developer Cerner at 02/04/2023 2:09 PM CDT documented in this encounter Plan of Treatment Not on file documented as of this encounter Visit Diagnoses Not on filedocumented in this encounter Care Teams Lacing String Cutter Relationship Specialty Start Date End Date Jay Howell MD [address] [place] [phone] PCP - General Emergency Medicine 11/12/23 documented as of this encounter
--- OUTSIDE RECORDS SUMMARY | 2025-07-24 06:52 | XMS_ITS | Encounter Summary ---
Author Organization [employer] ([place], [place], [place], [place]) Address [address] [place] [address] Care Team Providers Care Outside Sales Advertising Executive Name Role Phone Jay Howell MD Primary Care Provider [phone] Encounter Details Date Type Department Care Team (Late st Contact Info) Description 06/13/2020 Transcribed Document [facility] [place] Family Medicine [address] [place] [address] ProviderJessie MD [address] [place] [address] Social History Tobacco Use Types Packs/Day Years [...] filedocumented in this encounter Care Teams Outside Sales Advertising Executive Relationship Specialty Start Date End Date Jay Howell MD [address] [place] [phone] PCP - General Emergency Medicine 11/12/23 documented as of this encounter
--- OUTSIDE RECORDS SUMMARY | 2025-07-24 06:52 | XMS_ITS | Encounter Summary ---
Author Organization [employer] ([place], [place], [place], [place]) Address [address] [place] [address] Care Team Providers Care Insurance Auditor Name Role Phone Jay Howell MD Primary Care Provider [phone] Encounter Details Date Type Department Care Team (Late st Contact Info) Description 06/13/2020 Transcribed Document [facility] [place] Family Medicine [address] [place] [address] ProviderJessie MD [address] [place] [address] Social History Tobacco Use Types Packs/Day Years [...] on RA. FSBS noted. Fall team and INSURANCE REPRESENTATIVE team notified but they were in another INSURANCE REPRESENTATIVE call. PT feels clammy and light headed [...] 06/13/2020 16:24 EDT Electronically signed by Sivan [facility] Conversion Bunch Maker Hand Cerner at 02/04/2023 2:04 PM CDT documented in this encounter Plan of Treatment Not on file documented as of this encounter Visit Diagnoses Not on filedocumented in this encounter Care Teams Insurance Auditor Relationship Specialty Start Date End Date Jay Howell MD [address] [place] [phone] PCP - General Emergency Medicine 11/12/23 documented as of this encounter
--- OUTSIDE RECORDS SUMMARY | 2025-07-24 06:52 | XMS_ITS | Encounter Summary ---
Author Organization [employer] ([place], [place], [place], [place]) Address [address] [place] [address] Care Team Providers Care Division Traffic Superintendent Name Role Phone Jay Howell MD Primary Care Provider [phone] Encounter Details Date Type Department Care Team (Late st Contact Info) Description 06/13/2020 Transcribed Document [facility] [place] [address] [place] [address] ProviderJessie MD [address] [place] [address] Social History Tobacco Use Types Packs/Day Years [...] Ministry Provided to : Patient, Family/Significant other Sikhism Preference : Amish FARHANA PATEL - 06/13/2020 12:13 EDT Interventions Advance Directive Information Provided : Yes Advance Directive Comment : Discussed Living Will; Ms. Montoya requested information only; Gave copy of Personal Choices booklet; Ms. Montoya reported she would call for aviation electrical technician if/when she decides to complete one Emotional Support : Empathic/Engaged listening, Family/Significant other supported, Feelings expressed, Information provided Spiritual and Sikhism : Spiritual/Sikhism support provided Change, Adjustment and Loss : [...] 06/13/2020 12:13 EDT Electronically signed by Sivan [facility] Conversion Chief Wheelage Clerk Cerner at 02/04/2023 2:00 PM CDT documented in this encounter Plan of Treatment Not on file documented as of this encounter Visit Diagnoses Not on filedocumented in this encounter Care Teams Division Traffic Superintendent Relationship Specialty Start Date End Date Jay Howell MD [address] [place] [phone] PCP - General Emergency Medicine 11/12/23 documented as of this encounter
--- OUTSIDE RECORDS SUMMARY | 2025-07-24 06:52 | XMS_ITS | Encounter Summary ---
Author Organization [employer] ([place], [place], [place], [place]) Address [address] [place] [address] Care Team Providers Care Cylinder Machine Operator Name Role Phone Jay Howell MD Primary Care Provider [phone] Encounter Details Date Type Department Care Team (Late st Contact Info) Description 06/13/2020 Transcribed Document [facility] [place] Family Medicine [address] [place] [address] ProviderJessie MD [address] [place] [address] Social History Tobacco Use Types Packs/Day Years [...] Tobacco Cues : Verbalizes understanding Activities to [place] With Smoking Urges : Verbalizes understanding Basic Information About Quitting : Verbalizes understanding Tobacco Use Increases Chance of Relapse : Verbalizes understanding Withdrawal Symptoms Peak After Quitting : Verbalizes understanding Addictive Nature of Tobacco : Verbalizes understanding PAUL GERBER RN - 06/13/2020 3:35 EDT Electronically signed by Gayle Finnegan Conversion Salesperson Toy Trains And Accessories Cerner at 02/04/2023 2:07 PM CDT documented in this encounter Plan of Treatment Not on file documented as of this encounter Visit Diagnoses Not on filedocumented in this encounter Care Teams Cylinder Machine Operator Relationship Specialty Start Date End Date Jay Howell MD [address] [place] [phone] PCP - General Emergency Medicine 11/12/23 documented as of this encounter
--- OUTSIDE RECORDS SUMMARY | 2025-07-24 06:54 | XMS_ITS | Clinical Summary ---
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 (SNOMED CT) Active Arlen Feng Peripheral vascular disease Benign Essential Hypertension 0254493 (SNOMED CT) Active Arlen Feng Benign essential hypertension Medications Medication Instructions Start Date Stop Date Generic Name [facility] Provider VALSARTAN 160 MG TABS 1 tablet po daily VALSARTAN 54707387484 Leti Dela Cruz ALPRAZOLAM 0.5 MG TABS Take one by mouth daily/PRN ALPRAZOLAM 24439792826 Lexi Nascimentodox VIBRAMYCIN 100 MG ORAL CAPSULE Take by mouth twice a day DOXYCYCLINE HYCLATE 60570605378 Lexi Gipson TERBINAFINE HCL 250 MG TABS Take one by mouth daily TERBINAFINE HCL 65073835228 Lexi Gipson RANEXA 1000 MG ORAL TABLET EXTENDED RELEASE 12 HOUR Take by mouth twice a day RANOLAZINE 29680402549 Lexi Gipson CLOPIDOGREL BISULFATE 75 MG TABS Take one by mouth daily CLOPIDOGREL BISULFATE 04542070420 Lexi Nascimentodox OMEPRAZOLE 40 MG CPDR Take one by mouth daily OMEPRAZOLE 40529103410 Lexi Nascimentodox NORVASC 10 MG TABS Take one by mouth daily AMLODIPINE BESYLATE 70545996543 Lexi Nascimentodox HYDROCODONE-ACET AMINOPHEN 7.5-325 MG TABS Q6H/PRN HYDROCODONE-ACET AMINOPHEN 62115549784 Lexi Nascimentodox DAILY MULTIVITAMIN CAPS Take one by mouth daily MULTIPLE VITAMINS-MINERAL S 17650332543 Lexi Nascimentodox METFORMIN HCL 500 MG TABS Take by mouth twice a day METFORMIN HCL 09847810200 Lexi Thorpex LOVENOX 60 MG/0.6ML SUBCUTANEOUS SOLUTION 70 mg, SubCutaneous, Q12H ENOXAPARIN SODIUM 47644626806 Lexi Nascimentodox LOSARTAN POTASSIUM 100 MG TABS Take one by mouth daily LOSARTAN POTASSIUM 29382546173 Lexi Nascimentodox ACIDOPHILUS LACTOBACILLUS CAPS Take two by mouth daily LACTOBACILLUS 79154875592 Lexi Gipson HYDRALAZINE HCL 50 MG TABS 2 Tab, Oral, BID HYDRALAZINE HCL 00479884128 Lexi Thorpex DORZOLAMIDE HCL 2 % SOLN 1 Drop, Eye Right, BID DORZOLAMIDE HCL 87526402115 Lexi Nascimentodox WARFARIN SODIUM 3 MG TABS Take one by mouth daily WARFARIN SODIUM 60357499077 Lexi Nascimentodox CARVEDILOL 6.25 MG TABS Take one by mouth 3 times daily, morning, afternoon and evening. CARVEDILOL 52699639306 Lexi Nascimentodox ATORVASTATIN CALCIUM 80 MG TABS Take one by mouth daily ATORVASTATIN CALCIUM 00245926405 Lexi Gipson AMOXICILLIN-POT CLAVULANATE 875-125 MG TABS Take by mouth twice a day AMOXICILLIN-POT CLAVULANATE 88567989087 Lexi Gipson Medications Administered No information available. [...]
--- OUTSIDE RECORDS SUMMARY | 2025-07-24 06:55 | XMS_ITS | Encounter Summary ---
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 femur repair. Appendectomy (322956648). uterine suspension. Hysterectomy (303646914). back surgury. Cholecystectomy (35828599). Hip replacement (4912968460). cataract surgury.. Family history: Cardiomyopathy Child Stroke [...] EDT Height Source Stated Height Entry Format [place] Height/Length, AUSTRALIAN (ft) 5 ft Height/Length AUSTRALIAN 3 Inch CLINICALHEIGHT 160.02 cm [place] Body Weight 52.02 kg Weight Source, ED Critical estimated dosing weight Weight Entry Format [place] Weight [place] lb 154 lb CLINICALWEIGHT 70 kg Body [...] Radiology results: Radiology Results (Last 48 hours) [id number] -- 03/03/2021 15:59 CR Hip Uni Comp [...] 17:04 EDT, Discharge to: Home. Prescriptions: Prescription Application Engineer Pharmacy: [facility] 7.5 mg-325 mg oral tablet (Prescribe): 1 [...] on filedocumented in this encounter Care Teams Secondary Art Teacher Relationship Specialty Start Date End Date Jay Howell MD [address] [place] [phone] PCP - General Emergency Medicine 11/12/23 documented as of this encounter
--- OUTSIDE RECORDS SUMMARY | 2025-07-24 06:55 | XMS_ITS | Encounter Summary ---
Author Organization [employer] ([place], [place], [place], [place]) Address [address] [place] [address] Care Team Providers Care Muck Hauler Name Role Phone Jay Howell MD Primary Care Provider [phone] Encounter Details Date Type Department Care Team (Late st Contact Info) Description 03/04/2021 Transcribed Document [facility] [place] Family Medicine [address] [place] [address] ProviderJessie MD [address] [place] [address] Social History Tobacco Use Types Packs/Day Years [...] on filedocumented in this encounter Care Teams Muck Hauler Relationship Specialty Start Date End Date Jay Howell MD [address] [place] [phone] PCP - General Emergency Medicine 11/12/23 documented as of this encounter
--- OUTSIDE RECORDS SUMMARY | 2025-07-24 06:55 | XMS_ITS | Encounter Summary ---
Author Organization [employer] ([place], [place], [place], [place]) Address [address] [place] [address] Care Team Providers Care Senior Qa Tester Name Role Phone Jay Howell MD Primary Care Provider [phone] Encounter Details Date Type Department Care Team (Late st Contact Info) Description 08/22/2020 Transcribed Document [facility] [place] Family Medicine [address] [place] [address] ProviderJessie MD [address] [place] [address] Social History Tobacco Use Types Packs/Day Years Used Date Smoking Tobacco: Never Assessed Comments Unknown Sex and Gender Information Value Date Recorded Sex Assigned at Not on file Legal Sex Female 7:30 PM CDT Gender Identity Not on file Sexual Orientation Not on file documented as of this encounter Miscellaneous Notes * Cerner Conversion Note - Historical ProviderMD - 08/22/2020 8:49 PM FISH FARM LABORER [place] Suicide Severity Rating Scale (C-SSRS) Entered On: 08/22/2020 23:10 EST Performed On: 08/22/2020 23:10 EST by Noy Miguel Paramedic [place] Suicide Severity Rating Scale (C-SSRS) CSSRS Past Month Wish to be : No CSSRS Past Month Suicidal Thoughts : No CSSRS Lifetime Suicide Behavior : No Suicide Severity Rating Score : 0 Suicide Severity Rating : No Additional Care Required at this time Thoughts of Harming/Killing Others : No Noy Miguel Paramedic - 08/22/2020 23:10 EST Electronically signed by Sivan, [facility] Conversion Fine Chemicals Operator Cerner at 02/04/2023 2:06 PM CDT documented in this encounter Plan of Treatment Not on file documented as of this encounter Visit Diagnoses Not on filedocumented in this encounter Care Teams Senior Qa Tester Relationship Specialty Start Date End Date Jay Howell MD [address] [place] [phone] PCP - General Emergency Medicine 11/12/23 documented as of this encounter
--- OUTSIDE RECORDS SUMMARY | 2025-07-24 06:55 | XMS_ITS | Encounter Summary ---
Author Organization [employer] ([place], [place], [place], [place]) Address [address] [place] [address] Care Team Providers Care Blade Boner Name Role Phone Jay Howell MD Primary Care Provider [phone] Encounter Details Date Type Department Care Team (Late st Contact Info) Description 03/03/2021 Transcribed Document [facility] [place] [facility] [place] [address] ProviderJessie MD [address] [place] [address] Social History Tobacco Use Types [...] Jessie ProviderMD - 03/03/2021 5:09 PM CDT [facility] [place] [address] SKYLER MONTOYA :1940 Visit Time:03/03/2021 Your Visit [...] call you with a follow-up appointment Where: [address] [place] [address] [facility] (1) Allergies Macrodantin morphine (rash, rash) Immunizations This Visit No Immunizations Found Medications What How Much When Instructions Next Dose acetaminophen-hydrocodone (Supply 7.5 mg-325 mg oral tablet) 1 Tablet(s) Oral Every 6 Hours as needed for for pain Pickup at [place] [address] lidocaine topical (Lidoderm 5% topical film) 1 Patch(es) TransDermal Every Day Pickup at [place] [address] ALPRAZolam (Xanax 0.5 mg oral tablet) 1 [...] Information [facility] 712: [address] [place] [id number] [phone] The home medications listed are only as [...] that cause pain. General instructions ??? Take oyyh-nku-njzksvk and prescription medicines only as told by [...] provider. Document Revised: 02/18/2020 Document Reviewed: 02/18/2020 [employer] Patient Education ?? 2020 [employer]. Emergency Awareness and Preventative Care STROKE is [...] Assistance with quitting is available by contacting 6-386-VETT-NOW. This is a free resource providing counseling, [...] was given the opportunity to ask questions. Patient/Fuel Distribution System Operator Name: Patient/Fuel Distribution System Operator Signature: Relationship to Patient: Clinician/Hospital Fuel Distribution System Operator Signature: Please Provide a Telephone Number Where You Can Be Reached: Is it Permissible To Leave a Message? Date: Electronically signed by Sivan [facility] Conversion Child Development Teacher Cerner at 02/04/2023 1:58 PM CDT documented in this encounter Plan of Treatment Not on file documented as of this encounter Visit Diagnoses Not on filedocumented in this encounter Care Teams Blade Boner Relationship Specialty Start Date End Date Jay Howell MD [address] [place] [phone] PCP - General Emergency Medicine 11/12/23 documented as of this encounter
--- OUTSIDE RECORDS SUMMARY | 2025-07-24 06:55 | XMS_ITS | Encounter Summary ---
Author Organization [employer] ([place], [place], [place], [place]) Address [address] [place] [address] Care Team Providers Care Brush Maker Machine Name Role Phone Jay Howell MD Primary Care Provider [phone] Encounter Details Date Type Department Care Team (Late st Contact Info) Description 08/22/2020 Transcribed Document [facility] [place] [address] [place] [address] ProviderJessie MD [address] [place] [address] Social History Tobacco Use Types Packs/Day Years Used Date Smoking Tobacco: Never Assessed Comments Unknown Sex and Gender Information Value Date Recorded Sex Assigned at Not on file Legal Sex Female 7:30 PM CDT Gender Identity Not on file Sexual Orientation Not on file documented as of this encounter Miscellaneous Notes * Cerner Conversion Note - Jessie ProviderMD - 08/22/2020 8:49 PM TROUT FARMER ED Triage Entered On: 08/22/2020 20:57 EST [...] : 3 - Urgent Tracking Group : [facility] ED LUCINDA FOFANA RN - 08/22/2020 [...] 20:57:39 EST) Problems(Active) Apnea, sleep (SNOMED CT :482863431 ) Name of Problem: Apnea, sleep ; Recorder: JUAN LUIS GIL RN; Confirmation: Confirmed ; Classification: Medical ; Code: 338992106 ; Contributor System: PowerChart ; Last Updated: 11/12/2014 10:12 EST ; Life Cycle Date: 11/12/2014 ; Life Cycle Status: Active ; Vocabulary: SNOMED CT Arthritis (SNOMED CT :9856311 ) Name of Problem: Arthritis ; Recorder: KENYON CHAMBERS RN; Confirmation: Confirmed ; Classification: Medical ; Code: 1735155 ; Contributor System: PowerChart ; Last Updated: 04/10/2016 8:04 EDT ; Life Cycle Date: 08/13/2013 ; Life Cycle Status: Active ; Vocabulary: SNOMED CT Atrial fibrillation with RVR (SNOMED CT :5526100273 ) Name of Problem: Atrial fibrillation with RVR ; Recorder: SANG RICO APRN; Confirmation: Confirmed ; Classification: Medical ; Code: 4457945776 ; Contributor System: PowerChart ; Last Updated: 04/10/2016 8:05 EDT ; Life Cycle Date: 04/10/2016 ; Life Cycle Status: Active ; Responsible Provider: SANG RICO APRN; Vocabulary: SNOMED CT Blood clot (SNOMED CT :980862621 ) Name of Problem: Blood clot ; Recorder: KENYON CHAMBERS RN; Confirmation: Confirmed ; Classification: Patient Stated ; Code: 793555348 ; Contributor System: PowerChart ; Last Updated: [...] Vocabulary: Patient Care Chest pain (SNOMED CT :98597723 ) Name of Problem: Chest pain ; Recorder: SANG RICO APRN; Confirmation: Complaint of ; Classification: Medical ; Code: 22693135 ; Contributor System: PowerChart ; Last Updated: 04/10/2016 8:05 EDT ; Life Cycle Status: Active ; Responsible Provider: SANG RICO APRN; Vocabulary: SNOMED CT Chronic anticoagulation (SNOMED CT :218138203 ) Name of Problem: Chronic anticoagulation ; Recorder: SANG RICO APRN; Confirmation: Confirmed ; Classification: Medical ; Code: 123326440 ; Contributor System: PowerChart ; Last Updated: 04/10/2016 8:05 EDT ; Life Cycle Date: 04/10/2016 ; Life Cycle Status: Active ; Responsible Provider: SANG RICO APRN; Vocabulary: SNOMED CT Clotting disorder (SNOMED CT :155225364 ) Name of Problem: Clotting disorder ; Recorder: KENYON CHAMBERS RN; Confirmation: Confirmed ; Classification: Patient Stated ; Code: 038972023 ; Contributor System: PowerChart ; Last Updated: 03/28/2014 19:29 EDT ; Life Cycle Date: 08/13/2013 ; Life Cycle Status: Active ; Vocabulary: SNOMED CT COPD (SNOMED CT :25443778 ) Name of Problem: COPD ; Recorder: KENYON CHAMBERS RN; Confirmation: Confirmed ; Classification: Medical ; Code: 74303498 ; Contributor System: BearTailChart ; Last Updated: 04/10/2016 8:03 EDT ; Life Cycle Date: 08/13/2013 ; Life Cycle Status: Active ; Vocabulary: SNOMED CT Coronary artery disease (SNOMED CT :9474199672 ) Name of Problem: Coronary artery disease ; Recorder: KENYON CHAMBERS RN; Confirmation: Confirmed ; Classification: Medical ; Code: 8657622065 ; Contributor System: PowerChart ; Last Updated: 04/10/2016 8:03 EDT ; Life Cycle Date: 08/13/2013 ; Life Cycle Status: Active ; Vocabulary: SNOMED CT Diabetes mellitus (SNOMED CT :924587300 ) Name of Problem: Diabetes mellitus ; Recorder: KENYON CHAMBERS RN; Confirmation: Confirmed ; Classification: Medical ; Code: 952553156 ; Contributor System: PowerChart ; Last Updated: 04/10/2016 8:04 EDT ; Life Cycle Date: 08/13/2013 ; Life Cycle Status: Active ; Vocabulary: SNOMED CT Emphysema (SNOMED CT :253999041 ) Name of Problem: Emphysema ; Recorder: JUAN LUIS GIL RN; Confirmation: Confirmed ; Classification: Medical ; Code: 125295286 ; Contributor System: PowerChart ; Last Updated: 11/12/2014 10:11 EST ; Life Cycle Date: 11/12/2014 ; Life Cycle Status: Active ; Vocabulary: SNOMED CT GERD - Gastro-esophageal reflux disease (SNOMED CT :6365518705 ) Name of Problem: GERD - Gastro-esophageal reflux disease ; Recorder: KENYON CHAMBERS RN; Confirmation: Confirmed ; Classification: Medical ; Code: 4639080288 ; Contributor System: BearTailChart ; Last Updated: 04/10/2016 8:03 EDT ; [...] Patient Care High blood pressure (SNOMED CT :84388447 ) Name of Problem: High blood pressure ; Recorder: KENYON CHAMBERS RN; Confirmation: Confirmed ; Classification: Medical ; Code: 99732237 ; Contributor System: PowerChart ; Last Updated: 04/10/2016 8:03 EDT ; Life Cycle Date: 08/13/2013 ; Life Cycle Status: Active ; Vocabulary: SNOMED CT History of obstructive sleep apnea (IMO :48290831 ) Name of Problem: History of obstructive sleep apnea ; Recorder: SYSTEM, SYSTEM; Confirmation: Confirmed ; Classification: Medical ; Code: 14551214 ; Last Updated: 12/20/2018 12:01 EST ; Life Cycle Date: 12/20/2018 ; Life Cycle Status: Active ; Vocabulary: IMO Hx of pulmonary embolus (SNOMED CT :598716590 ) Name of Problem: Hx of pulmonary embolus ; Recorder: SANG RICO APRN; Confirmation: Confirmed ; Classification: Medical ; Code: 890928595 ; Contributor System: BearTailChart ; Last Updated: 04/10/2016 8:05 EDT ; Life Cycle Date: 04/10/2016 ; Life Cycle Status: Active ; Responsible Provider: SANG RICO APRN; Vocabulary: SNOMED CT Hyperlipidemia (SNOMED CT :96772721 ) Name of Problem: Hyperlipidemia ; Recorder: KENYON CHAMBERS RN; Confirmation: Confirmed ; Classification: Medical ; Code: 65274388 ; Contributor System: BearTailChart ; Last Updated: 04/10/2016 8:03 EDT ; Life Cycle Date: 08/13/2013 ; Life Cycle Status: Active ; Vocabulary: SNOMED CT Multiple renal cysts (SNOMED CT :363074712 ) Name of Problem: Multiple renal cysts ; Recorder: KENYON CHAMBERS RN; Confirmation: Confirmed ; Classification: Medical ; Code: 997800148 ; Contributor System: BearTailChart ; Last Updated: 04/10/2016 8:04 EDT ; Life Cycle Date: 08/13/2013 ; Life Cycle Status: Active ; Vocabulary: SNOMED CT Stented coronary artery (SNOMED CT :7710636687 ) Name of Problem: Stented coronary artery ; Recorder: KENYON CHAMBERS RN; Confirmation: Confirmed ; Classification: Medical ; Code: 2852824060 ; Contributor System: BearTailChart ; Last Updated: 04/10/2016 8:03 EDT ; Life Cycle Date: 08/13/2013 ; Life Cycle Status: Active ; Vocabulary: SNOMED CT UTI - Urinary tract infection (SNOMED CT :5941792260 ) Name of Problem: UTI - Urinary tract infection ; Recorder: KENYON CHAMBERS RN; Confirmation: Confirmed ; Classification: Medical ; Code: 3301169144 ; Contributor System: BearTailChart ; Last Updated: 04/10/2016 8:04 EDT ; Life Cycle Date: 08/13/2013 ; Life Cycle Status: Active ; Vocabulary: SNOMED CT Diagnoses(Active) Leg pain-swelling Date: 08/22/2020 ; Diagnosis Type: Reason For Visit ; Confirmation: Complaint of ; Clinical Dx: Leg pain-swelling ; Classification: Medical ; Clinical Service: Emergency medicine ; Code: PNED ; Probability: 0 ; Diagnosis Code: [id number] ED Height and Weight Height Source : Stated Height Entry Format : [place] Height, Feet : 5 ft(Converted to: 152 cm, 60 Inch) Height, Inches : 3 Inch(Converted to: 0 ft 3 Inch, 7.62 cm) Clinical Height : 160.02 cm Weight Source, ED : Critical estimated dosing weight Weight Entry Format : [place] Weight, Pounds : 154 lb Clinical Dosing Weight : 70 kg Body Surface Area (BSA) : 1.73 m2 Body Mass Index : 27.3 kg/m2 (HI) [place] Body Weight (IBW) : 52.02 kg LUCINDA FOFANA RN - 08/22/2020 20:52 EST Electronically signed by [facility], [facility] Conversion Glove Brusher Cerner at 02/04/2023 2:09 PM CDT documented in this encounter Plan of Treatment Not on file documented as of this encounter Visit Diagnoses Not on filedocumented in this encounter Care Teams Brush Maker Machine Relationship Specialty Start Date End Date Jay Howell MD [address] [place] [phone] PCP - General Emergency Medicine 11/12/23 documented as of this encounter
--- OUTSIDE RECORDS SUMMARY | 2025-07-24 06:55 | XMS_ITS | Encounter Summary ---
Author Organization [employer] ([place], [place], [place], [place]) Address [address] [place] [address] Care Team Providers Care Process Development Engineer Name Role Phone Jay Howell MD Primary Care Provider [phone] Encounter Details Date Type Department Care Team (Late st Contact Info) Description 06/14/2020 Transcribed Document [facility] [facility] [place] [address] ProviderJessie MD [address] [place] [address] Social History Tobacco Use Types Packs/Day Years [...] Diagnoses: None Author: FREDY YAÑEZ MD-CAR BASIC Research Epidemiologist: None Subjective NAD Health Status Allergies: Allergic [...] list: All Problems Arthritis / SNOMED CT 4352264 / Confirmed Atrial fibrillation with RVR / SNOMED CT 9724087348 / Confirmed Blood clot / SNOMED CT 742259835 / Confirmed Cataract / Patient Care / Confirmed Chest pain / SNOMED CT 97670347 / Complaint of Clotting disorder / SNOMED CT 273946981 / Confirmed COPD / SNOMED CT 43298068 / Confirmed Coronary artery disease / SNOMED CT 4278636152 / Confirmed Diabetes mellitus / SNOMED CT 618949880 / Confirmed GERD - Gastro-esophageal reflux disease / SNOMED CT 4010278558 / Confirmed Glaucoma / Patient Care / Confirmed Chronic anticoagulation / SNOMED CT 337048380 / Confirmed Hx of pulmonary embolus / SNOMED CT 869916732 / Confirmed High blood pressure / SNOMED CT 28150080 / Confirmed History of obstructive sleep apnea / IMO 23275937 / Confirmed Hyperlipidemia / SNOMED CT 53822191 / Confirmed Multiple renal cysts / SNOMED CT 121156229 / Confirmed Emphysema / SNOMED CT 584539481 / Confirmed Apnea, sleep / SNOMED CT 262904466 / Confirmed Stented coronary artery / SNOMED CT 5538985183 / Confirmed UTI - Urinary tract infection / SNOMED CT 5511460700 / Confirmed, Active Problems (21) Apnea, sleep [...] of motion, Normal strength. Integumentary: Warm, Dry, [place]. Neurologic: Alert, Oriented. Psychiatric: Cooperative, Appropriate mood & affect. Results Review JUN 14 05:28 136 105 7 / H 114 3.6 24 0.60 \ JUN 14 05:28 \ 12.0 / 5.2 177 / 35.2 \ Cardiac Markers (Current Encounter/Past 24 Hours) No Cardiac Marker Results Found (Past 24 Hours) Radiology Results (Last 48 hours) [id number] -- 06/13/2020 15:07 CR Chest 1 Vw [...] No change from prior. No acute process. [facility] IMPRESSION: Angiographically, the patient has severe three-vessel [...] w/ Dr. Garcia. Electronically signed by Sivan [facility] Conversion Lifts And Cranes Inspector Cerner at 02/04/2023 2:15 PM CDT documented in this encounter Plan of Treatment Not on file documented as of this encounter Visit Diagnoses Not on filedocumented in this encounter Care Teams Process Development Engineer Relationship Specialty Start Date End Date Jay Howell MD [address] [place] [phone] PCP - General Emergency Medicine 11/12/23 documented as of this encounter
--- OUTSIDE RECORDS SUMMARY | 2025-07-24 06:55 | XMS_ITS | Encounter Summary ---
Author Organization [employer] ([place], [place], [place], [place]) Address [address] [place] [address] Care Team Providers Care Cement Finisher Helper Name Role Phone Jay Howell MD Primary Care Provider [phone] Encounter Details Date Type Department Care Team (Late st Contact Info) Description 08/23/2020 Transcribed Document [facility] [place] Family Medicine [address] [place] [address] ProviderJessie MD [address] [place] [address] Social History Tobacco Use Types Packs/Day Years Used Date Smoking Tobacco: Never Assessed Comments Unknown Sex and Gender Information Value Date Recorded Sex Assigned at Not on file Legal Sex Female 7:30 PM CDT Gender Identity Not on file Sexual Orientation Not on file documented as of this encounter Miscellaneous Notes * Cerner Conversion Note - Jessie Yuen MD - 08/23/2020 1:35 AM LICSW ED Discharge Entered On: 08/23/2020 2:08 EST [...] 08/23/2020 2:07 EST Electronically signed by Sivan, [facility] Conversion Analysis Intern Cerner at 02/04/2023 2:21 PM CDT documented in this encounter Plan of Treatment Not on file documented as of this encounter Visit Diagnoses Not on filedocumented in this encounter Care Teams Cement Finisher Helper Relationship Specialty Start Date End Date Jay Howell MD [address] [place] [phone] PCP - General Emergency Medicine 11/12/23 documented as of this encounter
--- OUTSIDE RECORDS SUMMARY | 2025-07-24 06:55 | XMS_ITS | Encounter Summary ---
Author Organization [employer] ([place], [place], [place], [place]) Address [address] [place] [address] Care Team Providers Care Shingler Name Role Phone Jay Howell MD Primary Care Provider [phone] Encounter Details Date Type Department Care Team (Late st Contact Info) Description 03/03/2021 Transcribed Document [facility] [place] [address] [place] [address] ProviderJessie MD [address] [place] [address] [id number] Social History Tobacco Use Types Packs/Day Years [...] 03/03/2021 17:11 EDT Electronically signed by Sivan [facility] Conversion University Professor Cerner at 02/04/2023 2:10 PM CDT documented in this encounter Plan of Treatment Not on file documented as of this encounter Visit Diagnoses Not on filedocumented in this encounter Care Teams Shingler Relationship Specialty Start Date End Date Jay Howell MD [address] [place] [phone] PCP - General Emergency Medicine 11/12/23 documented as of this encounter
--- OUTSIDE RECORDS SUMMARY | 2025-07-24 06:55 | XMS_ITS | Encounter Summary ---
Author Organization [facility] Address [address] [place] [address] Care Team Providers Care Fitter/Welder Name Role Phone Jay Howell MD Primary Care Provider Reason for Visit * Reason Onset Date Comments Returned Call 07/02/2025 Encounter Details Date Type Department Care Team (Late st Contact Info) Description 07/02/2025 Telephone [place] [facility] [address] [place] [address] Returned Call Social History Tobacco [...] place to sleep or slept in a usp (including now)? No 08/06/2024 CAGE ASSESSMENT Answer [...] drink first t kathleen in the morning (EYE-LIGHT RAIL TRAIN OPERATOR) to steady your nerves or to get [...] Clinical Concern/Question Reason for Call: Sarah with [facility] in [place] called, saying that pt needs a STAT appt for a void trail. They have done 2 but she failed both of them. I explained we need a referral, but she is saying they cannot send us a referral or records until we send them a request for the referral and records. Their fax for medical records is [phone]. Please give her a call back. Thanks! Best contact number: Other: [phone] Optimal time of day to reach caller: ANYTIME Additional comments/information from caller: None Note: Please do not reply to this message. Follow-up communication and further actions as a result of this message need to be communicated with the patient directly, if the patient is not active onMyChart. If the patient is active on MyChart, they will receive notification of the communication/outcome via [employer]. documented in this encounter Plan of Treatment [...] documented as of this encounter Care Teams Fitter/Welder Relationship Specialty Start Date End Date Jay Howell MD [address] [place], [place] [address] PCP - General 03/08/21 documented as of this encounter
--- OUTSIDE RECORDS SUMMARY | 2025-07-24 06:55 | XMS_ITS | Encounter Summary ---
Author Organization [facility] Address [address] [place] [address] Care Team Providers Care Vp Research Name Role Phone Jay Howell MD Primary Care Provider Encounter Details Date Type Department Care Team (Late st Contact Info) Description 05/27/2025 Telephone [place] [facility] [address] [place] [address] [facility], Physician, [address] [place], [place] [id number] Social History Tobacco Use Types Packs/Day Years [...] place to sleep or slept in a prison (including now)? No 08/06/2024 CAGE ASSESSMENT Answer [...] drink first t kathleen in the morning (EYE-POLLS OR SURVEYS INTERVIEWER) to steady your nerves or to get [...] documented as of this encounter Care Teams Vp Research Relationship Specialty Start Date End Date Jay Howell MD [address] [place] [address] PCP - General 03/08/21 documented as of this encounter
--- OUTSIDE RECORDS SUMMARY | 2025-07-24 06:55 | XMS_ITS | Encounter Summary ---
Author Organization [employer] ([place], [place], [place], [place]) Address [address] [place] [address] Care Team Providers Care Correction Officer Reformatory Name Role Phone Jay Howell MD Primary Care Provider [phone] Encounter Details Date Type Department Care Team (Late st Contact Info) Description 08/22/2020 Transcribed Document [facility] [place] [address] [place] [address] ProviderJessie MD [address] [place] [address] Social History Tobacco Use Types Packs/Day Years Used Date Smoking Tobacco: Never Assessed Comments Unknown Sex and Gender Information Value Date Recorded Sex Assigned at Not on file Legal Sex Female 7:30 PM CDT Gender Identity Not on file Sexual Orientation Not on file documented as of this encounter Miscellaneous Notes * Cerner Conversion Note - Jessie ProviderMD - 08/22/2020 10:42 PM BUILDING CONSTRUCTION SUPERINTENDENT Pain Assessment Entered On: 08/23/2020 1:08 EST [...] on filedocumented in this encounter Care Teams Correction Officer Reformatory Relationship Specialty Start Date End Date Jay Howell MD [address] [place] [phone] PCP - General Emergency Medicine 11/12/23 documented as of this encounter
--- OUTSIDE RECORDS SUMMARY | 2025-07-24 06:55 | XMS_ITS | Encounter Summary ---
Author Organization [employer] ([place], [place], [place], [place]) Address [address] [place] [address] Care Team Providers Care Grants Director Name Role Phone Jay Howell MD Primary Care Provider [phone] Encounter Details Date Type Department Care Team (Late st Contact Info) Description 06/14/2020 Transcribed Document [facility] [place] [address] [place] [address] ProviderJessie MD [address] [place] [address] Social History Tobacco Use Types Packs/Day Years Used Date Smoking Tobacco: Never Assessed Comments Unknown Sex and Gender Information Value Date Recorded Sex Assigned at Not on file Legal Sex Female 7:30 PM CDT Gender Identity Not on file Sexual Orientation Not on file documented as of this encounter Miscellaneous Notes * Cerner Conversion Note - Jessie ProviderMD - 06/14/2020 2:00 AM CDT Qa Software Test Engineer Details Entered On: 06/14/2020 2:51 EDT Performed [...] on filedocumented in this encounter Care Teams Grants Director Relationship Specialty Start Date End Date Jay Howell MD [address] [place] [phone] PCP - General Emergency Medicine 11/12/23 documented as of this encounter
--- OUTSIDE RECORDS SUMMARY | 2025-07-24 06:55 | XMS_ITS | Encounter Summary ---
Author Organization [employer] ([place], [place], [place], [place]) Address [address] [place] [address] Care Team Providers Care Pourer Off Name Role Phone Jay Howell MD Primary Care Provider [phone] Encounter Details Date Type Department Care Team (Late st Contact Info) Description 03/03/2021 Transcribed Document [facility] [place] [address] [place] [address] ProviderJessie MD [address] [place] [phone] Social History Tobacco Use Types Packs/Day Years [...] Communication Barrier : None Primary Language : Macedonian Any Spiritual/Cultural Needs or Requests : No [...] - 03/03/2021 16:24 EDT Electronically signed by [facility] Conversion Pen And Pencil Repairer Cerner at 02/04/2023 2:00 PM CDT documented in this encounter Plan of Treatment Not on file documented as of this encounter Visit Diagnoses Not on filedocumented in this encounter Care Teams Pourer Off Relationship Specialty Start Date End Date Jay Howell MD [address] [place] [phone] PCP - General Emergency Medicine 11/12/23 documented as of this encounter
--- OUTSIDE RECORDS SUMMARY | 2025-07-24 06:55 | XMS_ITS | Encounter Summary ---
Author Organization [facility] Address [address] [place] [address] Care Team Providers Care Stock Crane Operator Name Role Phone Jay Howell MD Primary Care Provider [phone] Encounter Details Date Type Department Care Team (Late st Contact Info) Description 01/20/2024 Ophth Exam [facility] [address] [place] [address] Joselito Garza MD [address] [place] [address] Social History Tobacco Use Types [...] place to sleep or slept in a fpc (including now)? No 01/23/2024 CAGE ASSESSMENT Answer [...] drink first t kathleen in the morning (EYE-PLANT MAINTENANCE WORKER) to steady your nerves or to get rid of a hangover? 0 01/21/2024 CAGE Questionnaire Score 0 024 Utilities Answer Date Recorded In the past 12 months has th e [employer], gas, oil, or water company threatened to [...] as of this encounter Care Teams Stock Crane Operator Relationship Specialty Start Date End Date Jay Howell MD [address] [place] [address] PCP - General 03/08/21 documented as of this encounter
--- OUTSIDE RECORDS SUMMARY | 2025-07-24 06:55 | XMS_ITS | Encounter Summary ---
Author Organization [employer] ([place], [place], [place], [place]) Address [address] [place] [address] Care Team Providers Care Continuous Loft Operator Name Role Phone Jay Howell MD Primary Care Provider [phone] Encounter Details Date Type Department Care Team (Late st Contact Info) Description 03/03/2021 Transcribed Document [facility] [place] [address] [place] [address] ProviderJessie MD [address] [place], [place] [phone] Social History Tobacco Use Types Packs/Day Years [...] : Low risk (0) [place] Interventions : [place] precautions for safety used Marek Sanford Rn - 03/03/2021 16:24 EDT Electronically signed by Sivan [facility] Conversion Genetic Counsellor Cerner at 02/04/2023 2:12 PM CDT documented in this encounter Plan of Treatment Not on file documented as of this encounter Visit Diagnoses Not on filedocumented in this encounter Care Teams Continuous Loft Operator Relationship Specialty Start Date End Date Jay Howell MD [address] [place] [phone] PCP - General Emergency Medicine 11/12/23 documented as of this encounter
--- OUTSIDE RECORDS SUMMARY | 2025-07-24 06:55 | XMS_ITS | Encounter Summary ---
Author Organization [employer] ([place], [place], [place], [place]) Address [address] [place] [address] Care Team Providers Care Freelance Recruiter Name Role Phone Jay Howell MD Primary Care Provider [phone] Encounter Details Date Type Department Care Team (Late st Contact Info) Description 06/14/2020 Transcribed Document [facility] [place] [address] [place] [address] ProviderJessie MD [address] [place] [address] Social History Tobacco Use Types Packs/Day Years [...] 06/14/2020 14:23 EDT Electronically signed by Sivan [facility] Conversion Computer Consultant Cerner at 02/04/2023 2:18 PM CDT documented in this encounter Plan of Treatment Not on file documented as of this encounter Visit Diagnoses Not on filedocumented in this encounter Care Teams Freelance Recruiter Relationship Specialty Start Date End Date Jay Howell MD [address] [place] [phone] PCP - General Emergency Medicine 11/12/23 documented as of this encounter
--- OUTSIDE RECORDS SUMMARY | 2025-07-24 06:55 | XMS_ITS | Encounter Summary ---
Author Organization [employer] ([place], [place], [place], [place]) Address [address] [place] [address] Care Team Providers Care Aquatic Performer Name Role Phone Jay Howell MD Primary Care Provider [phone] Encounter Details Date Type Department Care Team (Late st Contact Info) Description 02/13/2021 Transcribed Document [facility] [place] [facility] [address] ProviderJessie MD [address] [place], [place] [address] Social History Tobacco Use Types Packs/Day Years [...] Source : Stated Height Entry Format : Makinen Height, Feet : 5 ft(Converted to: 152 cm, 60 Inch) Height, Inches : 4 Inch(Converted to: 0 ft 4 Inch, 10.16 cm) Clinical Height : 162.56 cm Weight Source : Standing scale Weight Entry Format : Makinen Clinical Dosing Weight : 71.64 kg Weight, Pounds : 157.6 lb Body Surface Area (BSA) : 1.77 m2 Body Mass Index : 27.1 kg/m2 (HI) [place] Body Weight : 54 kg Ludivina Tompkins [...] test? : No Ludivina Tompkins RN-PATIENT CARE [facility] NON-EXEMPT - 02/13/2021 10:47 EDT Anesthesia/Transfusion History Family History of Anesthesia Reaction : Prior transfusion reaction Type of Transfusion Reaction : Hemolytic reaction Transfusion History : Prior anesthesia without reaction Family History of Anesthesia Reaction : None Ludivina Tompkins RN-PATIENT CARE [facility] - 02/13/2021 10:47 EDT Functional Assessment Living Situation : Home Current Home Treatments : Blood glucose monitoring, CPAP Ludivina Tompkins RN-PATIENT CARE [facility] NON-EXEMPT - 02/13/2021 10:47 EDT [place] Suicide Severity Rating Scale (C-SSRS) CSSRS Past Month Wish to be : No CSSRS Past Month Suicidal Thoughts : No CSSRS Lifetime Suicide Behavior : No Suicide Severity Rating Score : 0 Suicide Severity Rating : No Additional Care Required at this time Ludivina Tompkins RN-PATIENT CARE [facility] NON-EXEMPT - 02/13/2021 10:47 EDT Psychosocial History Chronic/Terminal Illness w/Freq Visits : No Currently in Unsafe Situation : No Ludivina Tompkins RN-PATIENT CARE [facility] - 02/13/2021 10:47 EDT Advance Directive Patient has Advance Directive *Q : No, patient refuses Advance Directive information Ludivina Tompkins RN-PATIENT CARE [facility]-EX[facility] - 02/13/2021 10:47 EDT General Info Preferred Name : ilsa Support Person/Patient Protection Mgr : Yes Support Person/Pt Rep Name : Willard Contact Password : Marvin Support Person/Pt Rep Contact Information : [phone] Want Family/Rep/Phys Notified of Admit : No Emergency Contact #1 : Johnny Montoya Emergency Contact #1 Emergency Contact #1 Relationship : spouse Emergency Contact #2 : - Emergency Contact #2 Phone Number : - Emergency Contact #2 Relationship : - Primary Language : Latvian Preferred Communication Mode : Verbal Communication Barrier : None Home Office Representative Needed : Ludivina Tong RN-PATIENT CARE BEDSIDE [...] Scale Risk Level : 25-45 Medium Risk [place] Fall Interventions : Adequate lighting, Bed in [...] on filedocumented in this encounter Care Teams Aquatic Performer Relationship Specialty Start Date End Date Jay Howell MD [address] [place] [phone] PCP - General Emergency Medicine 11/12/23 documented as of this encounter
--- OUTSIDE RECORDS SUMMARY | 2025-07-24 06:55 | XMS_ITS | Encounter Summary ---
Author Organization [employer] ([place], [place], [place], [place]) Address [address] [place] [address] Care Team Providers Care Scrap Carrier Name Role Phone Jay Howell MD Primary Care Provider [phone] Encounter Details Date Type Department Care Team (Late st Contact Info) Description 03/03/2021 Transcribed Document [facility] [place] [facility] [place] [address] ProviderJessie MD [address] [place] [phone] Social History Tobacco Use Types Packs/Day Years [...] on filedocumented in this encounter Care Teams Scrap Carrier Relationship Specialty Start Date End Date Jay Howell MD [address] [place] [phone] PCP - General Emergency Medicine 11/12/23 documented as of this encounter
--- OUTSIDE RECORDS SUMMARY | 2025-07-24 06:55 | XMS_ITS | Encounter Summary ---
Author Organization [employer] ([place], [place], [place], [place]) Address [address] [place] [address] Care Team Providers Care Journeyman Electrician Pv Installer Name Role Phone Jay Howell MD Primary Care Provider [phone] Encounter Details Date Type Department Care Team (Late st Contact Info) Description 06/19/2020 Transcribed Document [facility] [place] [address] [place] [address] ProviderJessie MD [address] [place] [address] Social History Tobacco Use Types Packs/Day Years [...] provider. This is important. Medicines ??? Take [id number]-[id number] and prescription medicines only as told by [...] 10/03/2006 Document Revised: 06/13/2019 Document Reviewed: 06/13/2019 [employer] Patient Education ? 2020 [employer] documented in this encounter Plan of Treatment Not on file documented as of this encounter Visit Diagnoses Not on filedocumented in this encounter Care Teams Journeyman Electrician Pv Installer Relationship Specialty Start Date End Date Jay Howell MD [address] [place] [phone] PCP - General Emergency Medicine 11/12/23 documented as of this encounter
--- OUTSIDE RECORDS SUMMARY | 2025-07-24 06:55 | XMS_ITS | Encounter Summary ---
Author Organization [employer] ([place], [place], [place], [place]) Address [address] [place] [address] Care Team Providers Care Protective Signal Operator Name Role Phone Jay Howell MD Primary Care Provider [phone] Encounter Details Date Type Department Care Team (Late st Contact Info) Description 03/03/2021 Transcribed Document [facility] [place] Family [place] [facility] [place] [address] ProviderJessie MD [address] [place], [place] [address] Social History Tobacco Use Types Packs/Day Years [...] - Non - Urgent Tracking Group : [facility] ED Viri Gonsales RN - 03/03/2021 16:04 [...] 16:07:23 EDT) Problems(Active) Apnea, sleep (SNOMED CT :482227303 ) Name of Problem: Apnea, sleep ; Recorder: JUAN LUIS GIL RN; Confirmation: Confirmed ; Classification: Medical ; Code: [id number] ; Contributor System: PowerChart ; Last Updated: 11/12/2014 10:12 EST ; Life Cycle Date: 11/12/2014 ; Life Cycle Status: Active ; Vocabulary: SNOMED CT Arthritis (SNOMED CT :6893097 ) Name of Problem: Arthritis ; Recorder: KENYON CHAMBERS RN; Confirmation: Confirmed ; Classification: Medical ; Code: 6970390 ; Contributor System: PowerChart ; Last Updated: 04/10/2016 8:04 EDT ; Life Cycle Date: 08/13/2013 ; Life Cycle Status: Active ; Vocabulary: SNOMED CT Atrial fibrillation with RVR (SNOMED CT :0207697078 ) Name of Problem: Atrial fibrillation with RVR ; Recorder: SANG RICO APRN; Confirmation: Confirmed ; Classification: Medical ; Code: [id number] ; Contributor System: PowerChart ; Last Updated: 04/10/2016 8:05 EDT ; Life Cycle Date: 04/10/2016 ; Life Cycle Status: Active ; Responsible Provider: SANG RICO APRN; Vocabulary: SNOMED CT Blood clot (SNOMED CT :287234512 ) Name of Problem: Blood clot ; Recorder: KENYON CHAMBERS RN; Confirmation: Confirmed ; Classification: Patient Stated ; Code: [id number] ; Contributor System: PowerChart ; Last Updated: [...] Vocabulary: Patient Care Chest pain (SNOMED CT :26870248 ) Name of Problem: Chest pain ; Recorder: SANG RICO APRN; Confirmation: Complaint of ; Classification: Medical ; Code: 71447618 ; Contributor System: PowerChart ; Last Updated: 04/10/2016 8:05 EDT ; Life Cycle Status: Active ; Responsible Provider: SANG RICO APRN; Vocabulary: SNOMED CT Chronic anticoagulation (SNOMED CT :166238003 ) Name of Problem: Chronic anticoagulation ; Recorder: SANG RICO APRN; Confirmation: Confirmed ; Classification: Medical ; Code: 176083754 ; Contributor System: PowerChart ; Last Updated: 04/10/2016 8:05 EDT ; Life Cycle Date: 04/10/2016 ; Life Cycle Status: Active ; Responsible Provider: SANG RICO APRN; Vocabulary: SNOMED CT Clotting disorder (SNOMED CT :777061957 ) Name of Problem: Clotting disorder ; Recorder: KENYON CHAMBERS RN; Confirmation: Confirmed ; Classification: Patient Stated ; Code: 725091926 ; Contributor System: PowerChart ; Last Updated: 03/28/2014 19:29 EDT ; Life Cycle Date: 08/13/2013 ; Life Cycle Status: Active ; Vocabulary: SNOMED CT COPD (SNOMED CT :42446042 ) Name of Problem: COPD ; Recorder: KENYON CHAMBERS RN; Confirmation: Confirmed ; Classification: Medical ; Code: 94018261 ; Contributor System: PowerChart ; Last Updated: 04/10/2016 8:03 EDT ; Life Cycle Date: 08/13/2013 ; Life Cycle Status: Active ; Vocabulary: SNOMED CT Coronary artery disease (SNOMED CT :8517904763 ) Name of Problem: Coronary artery disease ; Recorder: KENYON CHAMBERS RN; Confirmation: Confirmed ; Classification: Medical ; Code: 9676892561 ; Contributor System: PowerChart ; Last Updated: 04/10/2016 8:03 EDT ; Life Cycle Date: 08/13/2013 ; Life Cycle Status: Active ; Vocabulary: SNOMED CT Diabetes mellitus (SNOMED CT :036524857 ) Name of Problem: Diabetes mellitus ; Recorder: KENYON CHAMBERS RN; Confirmation: Confirmed ; Classification: Medical ; Code: 319821277 ; Contributor System: PowerChart ; Last Updated: 04/10/2016 8:04 EDT ; Life Cycle Date: 08/13/2013 ; Life Cycle Status: Active ; Vocabulary: SNOMED CT Emphysema (SNOMED CT :183716901 ) Name of Problem: Emphysema ; Recorder: JUAN LUIS GIL RN; Confirmation: Confirmed ; Classification: Medical ; Code: 054407800 ; Contributor System: PowerChart ; Last Updated: 11/12/2014 10:11 EST ; Life Cycle Date: 11/12/2014 ; Life Cycle Status: Active ; Vocabulary: SNOMED CT GERD - Gastro-esophageal reflux disease (SNOMED CT :0739851654 ) Name of Problem: GERD - Gastro-esophageal reflux disease ; Recorder: KENYON CHAMBERS RN; Confirmation: Confirmed ; Classification: Medical ; Code: 8557180249 ; Contributor System: PowerChart ; Last Updated: [...] Patient Care High blood pressure (SNOMED CT :97052117 ) Name of Problem: High blood pressure ; Recorder: KENYON CHAMBERS RN; Confirmation: Confirmed ; Classification: Medical ; Code: 48651536 ; Contributor System: PowerChart ; Last Updated: 04/10/2016 8:03 EDT ; Life Cycle Date: 08/13/2013 ; Life Cycle Status: Active ; Vocabulary: SNOMED CT History of obstructive sleep apnea (IMO :72938539 ) Name of Problem: History of obstructive sleep apnea ; Recorder: SYSTEM, SYSTEM; Confirmation: Confirmed ; Classification: Medical ; Code: 17421582 ; Last Updated: 08/25/2020 18:21 EST ; Life Cycle Date: 08/25/2020 ; Life Cycle Status: Active ; Vocabulary: IMO Hx of pulmonary embolus (SNOMED CT :158314450 ) Name of Problem: Hx of pulmonary embolus ; Recorder: SANG RICO APRN; Confirmation: Confirmed ; Classification: Medical ; Code: 072502420 ; Contributor System: PowerChart ; Last Updated: 04/10/2016 8:05 EDT ; Life Cycle Date: 04/10/2016 ; Life Cycle Status: Active ; Responsible Provider: SANG RICO APRN; Vocabulary: SNOMED CT Hyperlipidemia (SNOMED CT :55094313 ) Name of Problem: Hyperlipidemia ; Recorder: KENYON CHAMBERS RN; Confirmation: Confirmed ; Classification: Medical ; Code: 10188706 ; Contributor System: [employer] Media[employer] ; Last Updated: 04/10/2016 8:03 EDT ; Life Cycle Date: 08/13/2013 ; Life Cycle Status: Active ; Vocabulary: SNOMED CT Multiple renal cysts (SNOMED CT :402859074 ) Name of Problem: Multiple renal cysts ; Recorder: KENYON CHAMBERS RN; Confirmation: Confirmed ; Classification: Medical ; Code: 404136902 ; Contributor System: [employer] MediaChart ; Last Updated: 04/10/2016 8:04 EDT ; Life Cycle Date: 08/13/2013 ; Life Cycle Status: Active ; Vocabulary: SNOMED CT Stented coronary artery (SNOMED CT :1955129163 ) Name of Problem: Stented coronary artery ; Recorder: KENYON CHAMBERS RN; Confirmation: Confirmed ; Classification: Medical ; Code: 5068459929 ; Contributor System: [employer] MediaChart ; Last Updated: 04/10/2016 8:03 EDT ; Life Cycle Date: 08/13/2013 ; Life Cycle Status: Active ; Vocabulary: SNOMED CT Diagnoses(Active) Hip pain-swelling Date: 03/03/2021 ; Diagnosis Type: Reason For Visit ; Confirmation: Complaint of ; Clinical Dx: Hip pain-swelling ; Classification: Medical ; Clinical Service: Emergency medicine ; Code: PNED ; Probability: 0 ; Diagnosis Code: [id number] ED Height and Weight Height Source : Stated Height Entry Format : Carlos Height, Feet : 5 ft(Converted to: 152 cm, 60 Inch) Height, Inches : 3 Inch(Converted to: 0 ft 3 Inch, 7.62 cm) Clinical Height : 160.02 cm Weight Source, ED : Critical estimated dosing weight Weight Entry Format : Carlos Weight, Pounds : 154 lb Clinical Dosing Weight : 70 kg Body Surface Area (BSA) : 1.73 m2 Body Mass Index : 27.3 kg/m2 (HI) Driscoll Body Weight (IBW) : 52.02 kg Viri Gonsales RN - 03/03/2021 16:04 EDT documented in this encounter Plan of Treatment Not on file documented as of this encounter Visit Diagnoses Not on filedocumented in this encounter Care Teams Protective Signal Operator Relationship Specialty Start Date End Date Jay Howell MD [address] [place] [phone] PCP - General Emergency Medicine 11/12/23 documented as of this encounter
--- OUTSIDE RECORDS SUMMARY | 2025-07-24 06:55 | XMS_ITS | Encounter Summary ---
Author Organization [employer] ([place], [place], [place], [place]) Address [address] [place] [address] Care Team Providers Care Cognos Consultant Name Role Phone Jay Howell MD Primary Care Provider [phone] Encounter Details Date Type Department Care Team (Late st Contact Info) Description 08/23/2020 Transcribed Document [facility] [place] Family Medicine [address] [place] [address] ProviderJessie MD [address] [place] [address] Social History Tobacco Use Types [...] Jessie Yuen MD - 08/23/2020 1:05 AM PROJECT MANAGER/DESIGN MANAGER [facility] [place], [place] [id number] SKYLER MONTOYA :1940 Visit Time:08/22/2020 Your Visit [...] SWELLING Where: [address] [place] [address]- Business (1) Allergies Macrodantin morphine (rash, rash) nitrofurantoin (blisters, blisters) Immunizations This Visit No Immunizations Found Medications What How Much When Instructions Next Dose acetaminophen-hydrocodone (Astatula 7.5 mg-325 mg oral tablet) 1 Tablet(s) [...] range between ( 0.0 and 7.0 ) Camp #: 0.71 K/uL -- Normal range between ( 0.16 and 1.00 ) Eos #: 0.15 x10(3)/uL -- Normal range between ( 0.00 and 0.80 ) Camp %: 10.1 % -- Normal range between [...] these instructions at home: Medicines ??? Take nktv-zwq-cfrowwp and prescription medicines only as told by [...] and water are not available, use hand carton folder. ??? Change your dressing and packing as [...] 12/25/2012 Document Revised: 09/03/2019 Document Reviewed: 09/03/2019 [employer] Patient Education ?? 2020 [employer] Skin Abscess A skin abscess is [...] these instructions at home: Medicines ??? Take nqgy-udx-qvvpzjn and prescription medicines only as told by [...] and water are not available, use hand carton folder. ??? Check your abscess every day for [...] 07/13/2006 Document Revised: 01/24/2020 Document Reviewed: 11/16/2018 [employer] Patient Education ?? 2020 [employer]. Emergency Awareness and Preventative Care STROKE is [...] Assistance with quitting is available by contacting 4-554-YWXN-NOW. This is a free resource providing counseling, [...] was given the opportunity to ask questions. Patient/Business Banking Sales Assistant Name: Patient/Business Banking Sales Assistant Signature: Relationship to Patient: Clinician/Hospital Business Banking Sales Assistant Signature: Please Provide a Telephone Number Where You Can Be Reached: Is it Permissible To Leave a Message? Date: documented in this encounter Plan of Treatment Not on file documented as of this encounter Visit Diagnoses Not on filedocumented in this encounter Care Teams Cognos Consultant Relationship Specialty Start Date End Date Jay Howell MD [address] [place] [phone] PCP - General Emergency Medicine 11/12/23 documented as of this encounter
--- OUTSIDE RECORDS SUMMARY | 2025-07-24 06:55 | XMS_ITS | Encounter Summary ---
Author Organization [email or web address] ([place], [place], [place], [place]) Address [address] [place] [address] Care Team Providers Care Machine Filler Name Role Phone Jay Howell MD Primary Care Provider [phone] Encounter Details Date Type Department Care Team (Late st Contact Info) Description 06/19/2020 Transcribed Document [facility] [place] [address] [place] [address] ProviderJessie MD [address] [place] [address] Social History Tobacco Use Types Packs/Day Years [...] On: 06/19/2020 12:12 EDT by Sri Kruse, Specialty Cook Patient Resource Center Provider Status : EST [...] at ED : Other Primary Language : [facility] Resource Almo Comment : Patient needs follow ups with PCP and Cardiology. Appointment already scheduled with Gabriella Asencio. I called and scheduled appointment with Dr. Tara Moeller and called patient with appointment. Follow Up Needed : No Sri Kruse, Specialty Cook - 06/19/2020 12:12 EDT Electronically signed by Sivan [facility] Conversion Power Chisel Operator Cerner at 02/04/2023 2:15 PM CDT documented in this encounter Plan of Treatment Not on file documented as of this encounter Visit Diagnoses Not on filedocumented in this encounter Care Teams Machine Filler Relationship Specialty Start Date End Date Jay Howell MD [address] [place] [phone] PCP - General Emergency Medicine 11/12/23 documented as of this encounter
--- OUTSIDE RECORDS SUMMARY | 2025-07-24 06:55 | XMS_ITS | Encounter Summary ---
Author Organization [employer] ([place], [place], [place], [place]) Address [address] [place] [address] Care Team Providers Care Regional Dedicated Truck Driver Name Role Phone Jay Howell MD Primary Care Provider [phone] Encounter Details Date Type Department Care Team (Late st Contact Info) Description 06/14/2020 Transcribed Document [facility] [address] [place] [address] Cheyenne Flores MD [address] [place] [phone] Social History Tobacco Use Types Packs/Day [...] 06/13/20 16:23:00 EDT, Cardiac Diet, 60 gm carbs:[id number] george, Isolation: Standard Precautions Pending Labs Ordered PT/INR Prothrombin Time Specimen Type: Blood, Anticoagulant: Yes warfarin, AM Draw collect, 06/14/20 4:00:00 EDT, Daily, Lab Collect documented in this encounter Plan of Treatment Not on file documented as of this encounter Visit Diagnoses Not on filedocumented in this encounter Care Teams Regional Dedicated Truck Driver Relationship Specialty Start Date End Date Jay Howell MD [address] [place] [phone] PCP - General Emergency Medicine 11/12/23 documented as of this encounter
--- OUTSIDE RECORDS SUMMARY | 2025-07-24 06:55 | XMS_ITS | Encounter Summary ---
Author Organization [employer] ([place], [place], [place], [place]) Address [address] [place] [address] Care Team Providers Care Director Of Finance Name Role Phone Jay Howell MD Primary Care Provider [phone] Encounter Details Date Type Department Care Team (Late st Contact Info) Description 06/14/2020 Transcribed Document [facility] [place] [address] [place] [address] ProviderJessie MD [address] [place] [address] Social History Tobacco Use Types [...] Yuen MD - 06/14/2020 2:41 PM CDT [place] [address] SKYLER MONTOYA :1940 Visit Time:06/13/2020 Your Visit Summary Your Care Team Admitting Physician - MARIA ELENA DAVALOS MD-[facility] Attending Physician - MARIA ELENA DAVALOS MD-[facility] Primary Care Physician - TRAA CHEN (REF), -MED Referring Physician - SURENDRA [...] provider. This is important. Medicines ??? Take cxtb-qdt-vkigwno and prescription medicines only as told by [...] 10/03/2006 Document Revised: 06/13/2019 Document Reviewed: 06/13/2019 [employer] Patient Education ?? 2020 [employer] Emergency Awareness and Preventative Care STROKE [...] Assistance with quitting is available by contacting 6-780-GGFE-NOW. This is a free resource providing counseling, [...] range between ( 0.0 and 7.0 ) Lyman #: 0.61 K/uL -- Normal range between ( 0.16 and 1.00 ) Eos #: 0.12 x10(3)/uL -- Normal range between ( 0.00 and 0.80 ) Lyman %: 10.6 % -- Normal range between [...] was given the opportunity to ask questions. Patient/Ip Litigation Paralegal Name: Patient/Ip Litigation Paralegal Signature: Relationship to Patient: Clinician/Hospital Ip Litigation Paralegal Signature: Date: documented in this encounter Plan of Treatment Not on file documented as of this encounter Visit Diagnoses Not on filedocumented in this encounter Care Teams Director Of Finance Relationship Specialty Start Date End Date Jay Howell MD [address] [place] [phone] PCP - General Emergency Medicine 11/12/23 documented as of this encounter
--- OUTSIDE RECORDS SUMMARY | 2025-07-24 06:55 | XMS_ITS | Encounter Summary ---
Author Organization [employer] ([place], [place], [place], [place]) Address [address] [place] [address] Care Team Providers Care Dental Instructor Name Role Phone Jay Howell MD Primary Care Provider [phone] Encounter Details Date Type Department Care Team (Late st Contact Info) Description 06/14/2020 Transcribed Document [facility] [place] [address] [place] [address] ProviderJessie MD [address] [place] [address] Social History Tobacco Use Types Packs/Day Years [...] : Yes Discharge To Care Management : Home/Residential/Correction or Self Care -01 JENAE COREY CSW - 06/14/2020 8:53 EDT Final Narrative Note Final Narrative Note : Pt declined services. JENAE COREY CSW - 06/14/2020 8:53 EDT Electronically signed by [facility] Conversion Hopper Operator Cerner at 02/04/2023 2:06 PM CDT documented in this encounter Plan of Treatment Not on file documented as of this encounter Visit Diagnoses Not on filedocumented in this encounter Care Teams Dental Instructor Relationship Specialty Start Date End Date Jay Howell MD [address] [place] [phone] PCP - General Emergency Medicine 11/12/23 documented as of this encounter
--- OUTSIDE RECORDS SUMMARY | 2025-07-24 06:55 | XMS_ITS | Encounter Summary ---
Author Organization [employer] ([place], [place], [place], [place]) Address [address] [place] [address] Care Team Providers Care Tree Faller Name Role Phone Jay Howell MD Primary Care Provider [phone] Encounter Details Date Type Department Care Team (Late st Contact Info) Description 03/03/2021 Transcribed Document [facility] [place] Family Medicine [address] [place] [address] ProviderJessie MD [address] [place] [phone] Social History Tobacco Use Types Packs/Day Years [...] 03/03/2021 5:06 PM CDT Electronically signed by [facility] Conversion Business Continuity Coordinator Cerner at 02/04/2023 2:08 PM CDT documented in this encounter Plan of Treatment Not on file documented as of this encounter Visit Diagnoses Not on filedocumented in this encounter Care Teams Tree Faller Relationship Specialty Start Date End Date Jay Howell MD [address] [place] [phone] PCP - General Emergency Medicine 11/12/23 documented as of this encounter
--- OUTSIDE RECORDS SUMMARY | 2025-07-24 06:55 | XMS_ITS | Encounter Summary ---
Author Organization [employer] ([place], [place], [place], [place]) Address [address] [place] [address] Care Team Providers Care Physical Chemistry Professor Name Role Phone Jay Howell MD Primary Care Provider [phone] Encounter Details Date Type Department Care Team (Late st Contact Info) Description 02/13/2021 Transcribed Document [facility] [place] [address] [place] [address] ProviderJessie MD [address] [place], [place] [address] Social History Tobacco Use Types Packs/Day Years Used Date Smoking Tobacco: Never Assessed Comments Unknown Sex and Gender Information Value Date Recorded Sex Assigned at Not on file Legal Sex Female 7:30 PM CDT Gender Identity Not on file Sexual Orientation Not on file documented as of this encounter Miscellaneous Notes * Cerner Conversion Note - Jessie ProviderMD - 02/13/2021 11:43 AM CDT [facility] Endo PACU Summary Primary Physician: FABY GRIMM MD Finalized Date/Time: 02/13/21 12:32:03 Pt. Name: SKYLER MONTOYAO.B./Sex: 1940 Female Med Rec #: [id number] Physician: FABY GRIMM MD Financial #: [id number] Pt. Type: O Room/Bed: END/ Admit/Disch: 02/13/21 09:44:00 - Institution: [facility] Endo PACU Case Times Entry 1 In PACU I 02/13/21 12:07:00 Ready for PACU 02/13/21 12:31:00 Discharge Discharge from PACU 02/13/21 12:31:00 I Last Modified By: Roselia Urbano, Rn 02/13/21 12:32:01 Finalized By: Roselia Urbano, Rn Document Signatures Signed By: Roselia Urbano Rn 02/13/21 12:32 documented in this encounter Plan of Treatment Not on file documented as of this encounter Visit Diagnoses Not on filedocumented in this encounter Care Teams Physical Chemistry Professor Relationship Specialty Start Date End Date Jay Howell MD [address] [place] [phone] PCP - General Emergency Medicine 11/12/23 documented as of this encounter
--- OUTSIDE RECORDS SUMMARY | 2025-07-24 06:55 | XMS_ITS | Encounter Summary ---
Author Organization [employer] ([place], [place], [place], [place]) Address [address] [place] [address] Care Team Providers Care Induction Machine Setter Name Role Phone Jay Howell MD Primary Care Provider [phone] Encounter Details Date Type Department Care Team (Late st Contact Info) Description 08/23/2020 Transcribed Document [facility] [place] [address] [place] [address] ProviderJessie MD [address] [place] [address] Social History Tobacco Use Types Packs/Day Years Used Date Smoking Tobacco: Never Assessed Comments Unknown Sex and Gender Information Value Date Recorded Sex Assigned at Not on file Legal Sex Female 7:30 PM CDT Gender Identity Not on file Sexual Orientation Not on file documented as of this encounter Miscellaneous Notes * Cerner Conversion Note - Historical ProviderMD - 08/23/2020 1:04 AM THUMB SEWER Electronically signed by [facility] Conversion Compensation And Benefits Advisor Cerner at 02/04/2023 1:59 PM CDT documented in this encounter Plan of Treatment Not on file documented as of this encounter Visit Diagnoses Not on filedocumented in this encounter Care Teams Induction Machine Setter Relationship Specialty Start Date End Date Jay Howell MD [address] [place] [phone] PCP - General Emergency Medicine 11/12/23 documented as of this encounter
--- OUTSIDE RECORDS SUMMARY | 2025-07-24 06:55 | XMS_ITS | Encounter Summary ---
Author Organization [employer] ([place], [place], [place], [place]) Address [address] [place] [address] Care Team Providers Care Entry Engineer Name Role Phone Jay Howell MD Primary Care Provider [phone] Encounter Details Date Type Department Care Team (Late st Contact Info) Description 08/22/[address] [facility] [place] [address] [place] [address] ProviderJessie MD [address] [place] [address] Social History Tobacco Use Types Packs/Day Years Used Date Smoking Tobacco: Never Assessed Comments Unknown Sex and Gender Information Value Date Recorded Sex Assigned at Not on file Legal Sex Female 7:30 PM CDT Gender Identity Not on file Sexual Orientation Not on file documented as of this encounter Miscellaneous Notes * Cerner Conversion Note - Jessie ProviderMD - 08/22/2020 8:49 PM ARCH PAD CEMENTER ED Assessment Entered On: 08/23/2020 1:11 EST Performed On: 08/22/2020 21:11 EST by Oumou Augustine RN ED Quick Look Assessment Level of Consciousness : Alert Orientation : Oriented x 4 Oumou Augustine RN - 08/23/2020 1:08 EST ED General-Functional Assess Preferred Communication Mode : Verbal Communication Barrier : None Primary Language : Nigerian Any Spiritual/Cultural Needs or Requests : No [...] 08/23/2020 1:08 EST Electronically signed by Sivan [facility] Conversion Ladle Puller Cerner at 02/04/2023 1:58 PM CDT documented in this encounter Plan of Treatment Not on file documented as of this encounter Visit Diagnoses Not on filedocumented in this encounter Care Teams Entry Engineer Relationship Specialty Start Date End Date Jay Howell MD [address] [place] [phone] PCP - General Emergency Medicine 11/12/23 documented as of this encounter
--- OUTSIDE RECORDS SUMMARY | 2025-07-24 06:55 | XMS_ITS | Encounter Summary ---
Author Organization [employer] ([place], [place], [place], [place]) Address [address] [place] [address] Care Team Providers Care Rubber Compounder Formulator Name Role Phone Jay Howell MD Primary Care Provider [phone] Encounter Details Date Type Department Care Team (Late st Contact Info) Description 06/14/2020 Transcribed Document [facility] [place] Family Medicine [address] [place] [address] ProviderJessie MD [address] [place] [address] Social History Tobacco Use Types Packs/Day Years [...] - 06/14/2020 6:24 EDT Electronically signed by Siavn [facility] Conversion Chucking Lathe Operator Cerner at 02/04/2023 2:11 PM CDT documented in this encounter Plan of Treatment Not on file documented as of this encounter Visit Diagnoses Not on filedocumented in this encounter Care Teams Rubber Compounder Formulator Relationship Specialty Start Date End Date Jay Howell MD [address] [place] [phone] PCP - General Emergency Medicine 11/12/23 documented as of this encounter
--- OUTSIDE RECORDS SUMMARY | 2025-07-24 06:55 | XMS_ITS | Encounter Summary ---
Author Organization [employer] ([place], [place], [place], [place]) Address [address] [place] [address] Care Team Providers Care Health Information Director Name Role Phone Jay Howell MD Primary Care Provider [phone] Encounter Details Date Type Department Care Team (Late st Contact Info) Description 03/03/2021 Transcribed Document [facility] [place] [address] [place] [address] ProviderJessie MD [address] [place], [place] [address] Social History Tobacco Use Types Packs/Day Years Used Date Smoking Tobacco: Never Assessed Comments Unknown Sex and Gender Information Value Date Recorded Sex Assigned at Not on file Legal Sex Female 7:30 PM CDT Gender Identity Not on file Sexual Orientation Not on file documented as of this encounter Miscellaneous Notes * Cerner Conversion Note - Historical ProviderMD - 03/03/2021 3:59 PM CDT [place] Suicide Severity Rating Scale (C-SSRS) Entered On: 03/03/2021 16:25 EDT Performed On: 03/03/2021 16:24 EDT by Marek Sanford Rn [place] Suicide Severity Rating Scale (C-SSRS) CSSRS Past [...] in this encounter Care Teams Health Information Director Relationship Specialty Start Date End Date Jay Howell MD [address] [place] [phone] PCP - General Emergency Medicine 11/12/23 documented as of this encounter
--- OUTSIDE RECORDS SUMMARY | 2025-07-24 06:55 | XMS_ITS | Encounter Summary ---
Author Organization [employer] ([place], [place], [place], [place]) Address [address] [place] [address] Care Team Providers Care Boat Designer Name Role Phone Jay Howell MD Primary Care Provider [phone] Encounter Details Date Type Department Care Team (Late st Contact Info) Description 08/22/2020 Transcribed Document [place] Family Medicine [address] [place] [address] ProviderJessie MD [address] [place] [address] Social History Tobacco Use Types Packs/Day Years Used Date Smoking Tobacco: Never Assessed Comments Unknown Sex and Gender Information Value Date Recorded Sex Assigned at Not on file Legal Sex Female 7:30 PM CDT Gender Identity Not on file Sexual Orientation Not on file documented as of this encounter Miscellaneous Notes * Cerner Conversion Note - Historical ProviderMD - 08/22/2020 8:49 PM CARDROOM DRAWING RUNNER [place] Violence Assessment Entered On: 08/22/2020 23:10 EST Performed On: 08/22/2020 23:10 EST by Noy Miguel Watcher Lookout Tower Broset Violence Assessment [place] Violence Checklist of Symptoms : None Bro[place] Violence Symptoms Subtotal : 0 Broset Violence Symptoms Indicator : Low risk (0) Noy Miguel Paramedic - 08/22/2020 23:10 EST Electronically signed by Sivan [facility] Conversion Manager Financial Planning Cerner at 02/04/2023 1:55 PM CDT documented in this encounter Plan of Treatment Not on file documented as of this encounter Visit Diagnoses Not on filedocumented in this encounter Care Teams Boat Designer Relationship Specialty Start Date End Date Jay Howell MD [address] [place] [phone] PCP - General Emergency Medicine 11/12/23 documented as of this encounter
--- OUTSIDE RECORDS SUMMARY | 2025-07-24 06:55 | XMS_ITS | Encounter Summary ---
Author Organization [employer] ([place], [place], [place], [place]) Address [address] [place] [address] Care Team Providers Care Supervisor Shrimp Pond Name Role Phone Jay Howell MD Primary Care Provider [phone] Encounter Details Date Type Department Care Team (Late st Contact Info) Description 06/14/2020 Transcribed Document [facility] [place] Family Medicine [address] [place] [address] ProviderJessie MD [address] [place] [address] Social History Tobacco Use Types Packs/Day Years [...] filedocumented in this encounter Care Teams Supervisor Shrimp Pond Relationship Specialty Start Date End Date Jay Howell MD [address] [place] [phone] PCP - General Emergency Medicine 11/12/23 documented as of this encounter
--- OUTSIDE RECORDS SUMMARY | 2025-07-24 06:55 | XMS_ITS | Encounter Summary ---
Author Organization [employer] ([place], [place], [place], [place]) Address [address] [place] [address] Care Team Providers Care Special Assets Officer Name Role Phone Jay Howell MD Primary Care Provider [phone] Encounter Details Date Type Department Care Team (Late st Contact Info) Description 08/22/2020 Transcribed Document [facility] [place] Family Medicine [address] [place] [address] ProviderJessie MD [address] [place] [address] Social History Tobacco Use Types Packs/Day Years Used Date Smoking Tobacco: Never Assessed Comments Unknown Sex and Gender Information Value Date Recorded Sex Assigned at Not on file Legal Sex Female 7:30 PM CDT Gender Identity Not on file Sexual Orientation Not on file documented as of this encounter Miscellaneous Notes * Cerner Conversion Note - Historical MD Alpa - 08/22/2020 10:50 PM COMPUTER LAB ASSISTANT Patient: SKYLER MONTOYA Age: 79 years [...] 06/13/2020 8:52 EVA LAWS RN PCI w/ Delphi stent to D1 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 femur repair. Appendectomy ([id number]). uterine suspension. Hysterectomy ([id number]). back surgury. Cholecystectomy (05142166). Hip replacement ([id number]). cataract surgury.. Family history: Cardiomyopathy Child Stroke [...] EST Height Source Stated Height Entry Format Coos Height/Length, CHINESE (ft) 5 ft Height/Length CHINESE 3 Inch CLINICALHEIGHT 160.02 cm [place] Body Weight 52.02 kg Weight Source, ED Critical estimated dosing weight Weight Entry Format [place] Weight Mauritanian lb 154 lb CLINICALWEIGHT 70 kg Body [...] % 33.0 % Lymph # 2.33 x10(3)/uL Union % 10.1 % HI Union # 0.71 K/uL Eos % 2.1 % Eos # 0.15 x10(3)/uL Baso % 0.4 % Baso # 0.03 x10(3)/uL Slide Review No IG# 0.04 x10(3)/uL IG% 0.60 % . Radiology results: Left tib/fib: no fx or dl Left ankle: no fx or dl. [facility] [id number] was reviewed. Last entry 07/30/20 for norco [...] Medical Plan Condition: Improved, Stable. Prescriptions: Prescription [facility]: [place] 7.5 mg-325 mg oral tablet (Prescribe): 1 Tab, Oral, Q6H, for 3 Day(s), PRN: as needed for pain, 12 Tab, 0 Refill(s) clindamycin 300 mg oral capsule (Prescribe): 1 Cap, Oral, QID, for 7 Day(s), 28 Cap, 0 Refill(s), Prescription [facility]: Bactroban 2% topical ointment (Prescribe): 1 [...] Start: 08/23/2020 1:05 EST, Discharge to: Home. Electronically signed by Sivan [facility] Conversion Real Estate Administrative Assistant Cerner at 02/04/2023 2:07 PM CDT documented in this encounter Plan of Treatment Not on file documented as of this encounter Visit Diagnoses Not on filedocumented in this encounter Care Teams Special Assets Officer Relationship Specialty Start Date End Date Jay Howell MD [address] [place] [phone] PCP - General Emergency Medicine 11/12/23 documented as of this encounter
--- OUTSIDE RECORDS SUMMARY | 2025-07-24 06:56 | XMS_ITS | Encounter Summary ---
Author Organization [employer] ([place], [place], [place], [place]) Address [address] [place] [address] Care Team Providers Care Professional Model Name Role Phone Jay Howell MD Primary Care Provider [phone] Encounter Details Date Type Department Care Team (Late st Contact Info) Description 12/20/2018 Transcribed Document [facility] [place] [address] [place] [address] ProviderJessie MD [address] [place] [address] Social History Tobacco Use Types Packs/Day Years Used Date Smoking Tobacco: Never Assessed Comments Unknown Sex and Gender Information Value Date Recorded Sex Assigned at Not on file Legal Sex Female 7:30 PM CDT Gender Identity Not on file Sexual Orientation Not on file documented as of this encounter Miscellaneous Notes * Cerner Conversion Note - Historical ProviderMD - 12/20/2018 12:01 PM FIBER WORKER Care Management Assessment/Plan Entered On: 12/21/2018 9:37 EST Performed On: 12/21/2018 9:36 EST by ANISH BRAN RN Care Management Note Care Management Note : Discharging today Documentation Status Complete : Yes ANISH BRAN RN - 12/21/2018 9:36 EST documented in this encounter Plan of Treatment Not on file documented as of this encounter Visit Diagnoses Not on filedocumented in this encounter Care Teams Professional Model Relationship Specialty Start Date End Date Jay Howell MD [address] [place] [phone] PCP - General Emergency Medicine 11/12/23 documented as of this encounter
--- OUTSIDE RECORDS SUMMARY | 2025-07-24 06:56 | XMS_ITS | Encounter Summary ---
Author Organization [employer] ([place], [place], [place], [place]) Address [address] [place] [address] Care Team Providers Care Harness Rigger Name Role Phone Jay Howell MD Primary Care Provider [phone] Encounter Details Date Type Department Care Team (Late st Contact Info) Description 08/29/2020 Transcribed Document [facility] [place] [address] [place] [address] ProviderJessie MD [address] [place], [place] [address] Social History Tobacco Use Types Packs/Day Years Used Date Smoking Tobacco: Never Assessed Comments Unknown Sex and Gender Information Value Date Recorded Sex Assigned at Not on file Legal Sex Female 7:30 PM CDT Gender Identity Not on file Sexual Orientation Not on file documented as of this encounter Miscellaneous Notes * Cerner Conversion Note - Historical ProviderMD - 08/29/2020 12:42 PM DRIVER MEDIC Patient: SKYLER MONTOYA Age: 79 Years Sex: [...] 08/29/2020 01:38 EST Electronically signed by Sivan [facility] Conversion Commercial Census Taker Cerner at 02/04/2023 2:06 PM CDT documented in this encounter Plan of Treatment Not on file documented as of this encounter Visit Diagnoses Not on filedocumented in this encounter Care Teams Harness Rigger Relationship Specialty Start Date End Date Jay Howell MD [address] [place] [phone] PCP - General Emergency Medicine 11/12/23 documented as of this encounter
--- OUTSIDE RECORDS SUMMARY | 2025-07-24 06:56 | XMS_ITS | Encounter Summary ---
Author Organization [employer] ([place], [place], [place], [place]) Address [address] [place] [address] Care Team Providers Care Ammunition Specialist Name Role Phone Jay Howell MD Primary Care Provider [phone] Encounter Details Date Type Department Care Team (Late st Contact Info) Description 08/29/2020 Transcribed Document [facility] [place] Family Medicine [address] [place] [address] ProviderJessie MD [address] [place] [address] Social History Tobacco Use Types Packs/Day Years Used Date Smoking Tobacco: Never Assessed Comments Unknown Sex and Gender Information Value Date Recorded Sex Assigned at Not on file Legal Sex Female 7:30 PM CDT Gender Identity Not on file Sexual Orientation Not on file documented as of this encounter Miscellaneous Notes * Cerner Conversion Note - Historical ProviderMD - 08/29/2020 1:02 PM LIAISON ENGINEER Patient: SKYLER MONTOYA Age: 79 years [...] level of muscle per surgery *Operation RIGHT BIOMETRIC TECHNICIAN access - ultrasound guided Aortogram with LEFT lower extremity run-off LEFT PT angioplasty ([id number] Nanocross) LEFT peroneal angioplasty (2.5-8h810og Nanocross) RIGHT BIOMETRIC TECHNICIAN closure (Angioseal) LEFT leg debridement 08/29/20 doing [...] Level 0.70 mg/dL 08/29/2020 02:04 Bun/Creatinine 22.9 NC 08/29/2020 02:04 eGFR >60 mL/min/1.73m2 08/29/2020 02:04 eGFR NonAfrican >60 mL/min/1.73m2 08/29/2020 02:04 Bun/Creatinine 22.9 NC 08/29/2020 07:33 Sodium Level 138 mmol/L 08/29/2020 02:04 Potassium Level 3.3 mmol/L LOW 08/29/2020 02:04 Chloride Level 108 mmol/L 08/29/2020 02:04 Carbon Dioxide Level 23 mmol/L 08/29/2020 02:04 Anion Gap 10 08/29/2020 02:04 Blood Urea Nitrogen 16 mg/dL 08/29/2020 02:04 Glucose Level 108 mg/dL NC 08/29/2020 02:04 Calcium Level 9.1 mg/dL 08/29/2020 02:04 MICRO: ACC: [id number] ORDER: Culture Wound and Stain DATE: 08/26/2020 15:23 SOURCE: Surgical Swab SITE: Leg Lower L Reports Final 08/29/2020 08:29 No growth Pre 08/27/2020 07:14 No growth GS 08/26/2020 18:13 Few White Blood Cells No organisms seen. == ACC: [id number] ORDER: Culture Wound and Stain DATE: 08/25/2020 05:00 SOURCE: Wound SITE: Leg Lower L Reports Final 08/28/2020 08:57 No growth Pre 08/26/2020 06:23 No growth GS 08/25/2020 07:26 No organisms seen. Few White Blood Cells Rare epithelial cells == ACC: [id number] ORDER: Culture AFB and Stain DATE: 08/26/2020 13:56 SOURCE: Surgical Swab SITE: Leg Lower L Reports AFS 08/27/2020 13:07 No Acid Fast Bacilli seen == ACC: [id number] ORDER: Culture Anaerobic DATE: 08/26/2020 13:56 SOURCE: Surgical Swab SITE: Leg Lower L Reports Pre 08/28/2020 07:01 No Anaerobic growth Pre 08/27/2020 07:47 Culture in progress == ACC: [id number] ORDER: Culture Fungus DATE: 08/26/2020 13:56 SOURCE: Surgical Swab SITE: Leg Lower L Reports SINDI 08/26/2020 16:09 No Fungal elements seen == ACC: [id number] ORDER: Culture Blood DATE: 08/25/2020 05:01 SOURCE: Blood SITE: Reports Pre 08/29/2020 06:01 No growth at 4 days. Pre 08/28/2020 06:01 No growth at 3 days. Pre 08/27/2020 06:01 No growth at 2 days. Pre 08/26/2020 06:01 No growth at 1 day. Pre 08/25/2020 23:02 Culture less than 24 Hrs old == ACC: [id number] ORDER: Culture Blood DATE: 08/25/2020 05:01 SOURCE: Blood SITE: Reports Pre 08/29/2020 06:02 No growth at 4 days. Pre 08/28/2020 06:01 No growth at 3 days. Pre 08/27/2020 06:01 No growth at 2 days. Pre 08/26/2020 06:01 No growth at 1 day. Pre 08/25/2020 23:02 Culture less than 24 Hrs old == Radiology Results (Last 48 hours) [id number] -- 08/25/2020 05:53 CT Abdomen WO W [...] after discharge Electronically signed by Sivan, [facility] Conversion Mailroom Assistant Cerner at 02/04/2023 1:55 PM CDT documented in this encounter Plan of Treatment Not on file documented as of this encounter Visit Diagnoses Not on filedocumented in this encounter Care Teams Ammunition Specialist Relationship Specialty Start Date End Date Jay Howell MD [address] [place] [phone] PCP - General Emergency Medicine 11/12/23 documented as of this encounter
--- OUTSIDE RECORDS SUMMARY | 2025-07-24 06:56 | XMS_ITS | Encounter Summary ---
Author Organization [facility] Address [address] [place] [address] Care Team Providers Care Lumite Injector Name Role Phone Jay Howell MD Primary Care Provider [phone] Encounter Details Date Type Department Care Team (Late st Contact Info) Description 06/08/2012 Conversion Encounter [facility] HISTORICAL CONV [address] [place] [address] Interface, See Report Social History [...] Schuler M.D. ' Tana Rivera M.D. ' Rosailo Marie M.D. ' STEPHANIE Quezada M.D. ' Heath Amado M.D. ' Kailey Ruff APRN [address], [address] [place] [address] [employer] NEW PATIENT EVALUATION SKYLER MONTOYA : 1940 DATE OF VISIT: 06/08/2012 REFERRING PHYSICIAN: Dr. Avtar Moeller PROBLEMS: 1. History of pulmonary embolus. a. Pulmonary embolus diagnosed February 2011 at [facility]. b. Details incomplete. 2. Warfarin therapy. 3. [...] was evidently diagnosed by CT angiogram at [facility]; I do not have records from this. [...] to Macrodantin. SOCIAL HISTORY: She lives in [place] with her . She is accompanied today by her [id number] who is also a patient of our practice. 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 She is not working now. She does [...] dryness and this is managed by an metal furniture assembler. She has the hematuria and pain with [...] repeat her anticardiolipin antibody since this can military exchange wireless manager time. If the anticardiolipin antibody is persistently [...] about her diagnosis of pulmonary embolus at [facility] and any additional testing done [...] available. Tana Rivera M.D.* TRUNG/rxaldarlene Doc. ID [id number] Rev. #0 cc: Avtar Moeller M.D.* Dr. Etienne De La Paz Page 4 of 4 Page 1 of 4 Authenticated and Edited by TANA RIVERA M.D. On 06/09/12 3:24:05 PM * Interface, See Report - 06/08/2012 4:16 PM EDT Zurdo Schuler M.D. ' Tana Rivera M.D. ' Rosalio Marie M.D. ' STEPHANIE Quezada M.D. ' Heath Amado M.D. ' Kailey Ruff APRN [address] [place] [address], [place] [address] [place] [address] [employer] OFFICE NOTE SKYLER MONTOYA : 1940 DATE [...] medicines and I will try to get licensed master social worker to give her some help with this. Also, I will speak to Dr. De La Paz about this and I have a call into his office. Tana Rivera M.D.* TRUNG/ruperto Doc. ID [id number] Rev. #0 cc: Etienne De La Paz Jr., M.D.* Avtar Moeller M.D.* Page 2 of 2 Page 1 of 2 Authenticated by TANA RIVERA M.D. On 07/07/2012 04:36:41 PM * Interface, See Report - 06/08/2012 4:16 PM EDT Zurdo Schuler M.D. ' Tana Rivera M.D. ' Rosalio Marie M.D. ' STEPHANIE Quezada M.D. ' Heath Amado M.D. ' Kailey Ruff APRN [address], [address] [place] [id number] [employer] OFFICE NOTE SKYLER MONTOYA : 1940 DATE [...] antibodies. Tana Rivera M.D.* RME/rxalw Doc. ID [id number] Rev. #0 cc: Avtar Moeller M.D.* Page 2 of 2 Page 1 of 2 Authenticated by TANA RIVERA M.D. On 08/15/2012 09:44:06 AM * Interface, See Report - 06/08/2012 4:16 PM EDT Zurdo Schuler M.D. ' Tana Rivera M.D. ' Rosalio Marie M.D. ' STEPHANIE Quezada M.D. ' David Calvillo M.D. ' Heath Amado M.D. ' Kailey Ruff APRN [address] [place] [address] [place] [address] [employer] OFFICE NOTE SKYLER MONTOYA : 1940 DATE [...] develop. Tana Rivera M.D.* RMEmiliano/rxalw Doc. ID [id number] Rev. #0 cc: Avtar Moeller M.D.* Jorje Watters M.D.* SKYLER MONTOYA : 1940 DATE OF VISIT: 04/26/2013 Page 2 of 2 Page 1 of 2 DOCUMENT CODE :[facility]: PHYSICIAN CODE :29363: Authenticated by TANA RIVERA M.D. On 05/04/2013 10:54:04 AM * Interface, See Report - 06/08/2012 4:16 PM EDT Zurdo Schuler M.D. ' Tana Rivera M.D. ' Rosalio Marie M.D. ' STEPHANIE Quezada M.D. ' David Calvillo M.D. ' Heath Amado M.D. ' Kailey Ruff APRN [facility], [place] [address] [place] [address] [employer] [facility]ma[facility] centertphysiciAudioCure Ph[facility] OFFICE NOTE SKYLER MONTOYA : 1940 DATE [...] develop. Tana Rivera M.D.* RMEmiliano/rxalw Doc. ID [id number] Rev. #0 cc: Avtar Moeller M.D.* Etienne De La Paz Jr., M.D.* Jorje Watters M.D.* SKYLER MONTOYA : 1940 DATE OF VISIT: 07/12/2013 Page 2 of 2 Page 1 of 2 DOCUMENT CODE :[facility]: PHYSICIAN CODE :67181: Authenticated by TANA RIVERA M.D. On 07/16/2013 01:57:36 PM documented in this encounter Plan of Treatment Not on file documented as of this encounter Visit Diagnoses Not on filedocumented in this encounter Care Teams Lumite Injector Relationship Specialty Start Date End Date Jay Howell MD [address] [place] [address] PCP - General Emergency Medicine 04/28/23 documented as of this encounter
--- OUTSIDE RECORDS SUMMARY | 2025-07-24 06:56 | XMS_ITS | Encounter Summary ---
Author Organization [employer] ([place], [place], [place], [place]) Address [address] [place] [address] Care Team Providers Care Surgical Training Specialist Name Role Phone Jay Howell MD Primary Care Provider [phone] Encounter Details Date Type Department Care Team (Late st Contact Info) Description 02/13/2021 Transcribed Document [facility] [place] [facility] [place] [address] ProviderJessie MD [address] [place], [place] [address] Social History Tobacco Use Types Packs/Day Years [...] 11:50:00 (02/13/21 12:00:33) Electronically signed by Sivan [facility] Conversion Cardiology Technologist Cerner at 02/04/2023 2:14 PM CDT documented in this encounter Plan of Treatment Not on file documented as of this encounter Visit Diagnoses Not on filedocumented in this encounter Care Teams Surgical Training Specialist Relationship Specialty Start Date End Date Jay Howell MD [address] [place] [phone] PCP - General Emergency Medicine 11/12/23 documented as of this encounter
--- OUTSIDE RECORDS SUMMARY | 2025-07-24 06:56 | XMS_ITS | Clinical Summary ---
Author Organization [employer] ([place], [place], [place], [place]) Address [address] [place] [address] Care Team Providers Care Open Hearth Furnace Operator Helper Name Role Phone Jay Howell [...] Date Kennedy rded Speak language other than Mongolian at home Not on file 10/30/2023 Want [...] history exists Insurance MEDICARE [place] [address] [place] [address] [place] [place] [id number] Advance Directives For more information, please contact: [phone] * Full Code (Latest Code Status on File) Date Activated Date Inactivated Comments 11/25/2022 10:41 AM 11/26/2022 5:33 PM * Full Code Date Activated Date Inactivated Comments 11/25/2022 8:11 AM 11/25/2022 10:41 AM -Attempt Resu scitation if person has no pulse and is not breathing. -If no pulse or not breathing attempt CPR/CODE. -Call Rapid Response if patient is in distress. Care Teams Open Hearth Furnace Operator Helper Relationship Specialty Start Date End Date Jay Howell MD [address] [place] [phone] PCP - General Emergency Medicine 11/12/23
--- OUTSIDE RECORDS SUMMARY | 2025-07-24 06:56 | XMS_ITS | Encounter Summary ---
Author Organization [employer] ([place], [place], [place], [place]) Address [address] [place] [address] Care Team Providers Care Spanish Translator Name Role Phone Jay Howell MD Primary Care Provider [phone] Encounter Details Date Type Department Care Team (Late st Contact Info) Description 12/21/2018 Transcribed Document [facility] [place] [address] [place] [address] ProviderJessie MD [address] [place] [address] Social History Tobacco Use Types Packs/Day Years Used Date Smoking Tobacco: Never Assessed Comments Unknown Sex and Gender Information Value Date Recorded Sex Assigned at Not on file Legal Sex Female 7:30 PM CDT Gender Identity Not on file Sexual Orientation Not on file documented as of this encounter Miscellaneous Notes * Cerner Conversion Note - Jessie uYen MD - 12/21/2018 10:31 AM DO[employer]Y DAYC[employer] ACTIVITIES DIRECTOR Discharge Instructions Entered On: 12/21/2018 10:31 EST [...] now and restart on 12-24-18 AUSTEN WEAVER, [facility] - 12/21/2018 10:33 EST Electronically signed by [facility], [facility] Conversion Deputy Felony Clerk Cerner at 02/04/2023 1:57 PM CDT documented in this encounter Plan of Treatment Not on file documented as of this encounter Visit Diagnoses Not on filedocumented in this encounter Care Teams Spanish Translator Relationship Specialty Start Date End Date Jay Howell MD [address] [place] [phone] PCP - General Emergency Medicine 11/12/23 documented as of this encounter
--- OUTSIDE RECORDS SUMMARY | 2025-07-24 06:56 | XMS_ITS | Encounter Summary ---
Author Organization [employer] ([place], [place], [place], [place]) Address [address] [place] [address] Care Team Providers Care Production Machine Operator Name Role Phone Jay Howell MD Primary Care Provider [phone] Encounter Details Date Type Department Care Team (Late st Contact Info) Description 12/20/2018 Transcribed Document [facility] [place] [facility] [place] [address] [place] [address] ProviderJessie MD [address] [place] [address] Social History Tobacco Use Types Packs/Day Years Used Date Smoking Tobacco: Never Assessed Comments Unknown Sex and Gender Information Value Date Recorded Sex Assigned at Not on file Legal Sex Female 7:30 PM CDT Gender Identity Not on file Sexual Orientation Not on file documented as of this encounter Miscellaneous Notes * Cerner Conversion Note - Historical ProviderMD - 12/20/2018 7:39 PM SOLAR ENERGY INSTALLATION MANAGER Admission History, Adult Entered On: 12/20/2018 19:41 [...] Info Preferred Name : ilsa Support Person/Patient Gas Meter Reader : Deanna Support Person/Pt Rep Name : Willard Contact Password : Marvin Support Person/Pt Rep Contact Information : [id number] Want Family/Rep/Phys Notified of Admit : No Emergency Contact #1 : na Emergency Contact #1 Phone Number : na Emergency Contact #1 Relationship : na Emergency Contact #2 : na Emergency Contact #2 Phone Number : na Emergency Contact #2 Relationship : na Primary Language : Latvian Preferred Communication Mode : Verbal Communication Barrier : None An Ocampo RN - 12/20/2018 19:39 EST Fall Risk Scales ABCs Fall Injury Risk Identification : Coagulation, Surgery ABC Fall Injury Risk : Moderate to high injury risk THOMAS Hx Falls Immediate/Within 3 Months : Yes Thomas Secondary Diagnosis : No THOMAS Use of Ambulatory Aid : Bed rest/Nurse assist HTOMAS IV Therapy or IV Access : Yes Thomas Gait/Transferring : Normal, bedrest, immobile Thomas Mental Status : Oriented to own ability Thomas Fall Risk Score : 45 THOMAS Fall Scale Risk Level : 25-45 Medium Risk [place] Fall Interventions : Adequate lighting, Assistive devices [...] Source : Stated Height Entry Format : [place] Height, Feet : 5 ft(Converted to: 152 cm, 60 Inch) Height, Inches : 3 Inch(Converted to: 0 ft 3 Inch, 7.62 cm) Clinical Height : 160.02 cm Weight Source : Standing scale Weight Entry Format : [place] Clinical Dosing Weight : 71.82 kg Weight, Pounds : 158 lb Body Surface Area (BSA) : 1.75 m2 Body Mass Index : 28 kg/m2 (HI) [place] Body Weight : 52 kg An Ocampo [...] RN - 12/20/2018 19:39 EST Spiritual/Cultural Needs Oriental Orthodox Preference : Shinto Spiritual/Cultural Needs Comment : joseph after surgery or major surgery An Ocampo RN - 12/20/2018 19:39 EST Valuables and Belongings Valuables and Belongings : Clothing, Personal devices Clothing : Common streetwear Clothing Disposition : Bedside Personal Device Disposition : Bedside Personal Devices : Dentures, partial plate An Ocampo RN - 12/20/2018 19:39 EST Electronically signed by [facility], [facility] Conversion Physician Assistant Cerner at 02/04/2023 2:16 PM CDT documented in this encounter Plan of Treatment Not on file documented as of this encounter Visit Diagnoses Not on filedocumented in this encounter Care Teams Production Machine Operator Relationship Specialty Start Date End Date Jay Howell MD [address] [place] [phone] PCP - General Emergency Medicine 11/12/23 documented as of this encounter
--- OUTSIDE RECORDS SUMMARY | 2025-07-24 06:56 | XMS_ITS | Encounter Summary ---
Author Organization [employer] ([place], [place], [place], [place]) Address [address] [place] [address] Care Team Providers Care Thread Pulling Machine Attendant Name Role Phone Jay Howell MD Primary Care Provider [phone] Encounter Details Date Type Department Care Team (Late st Contact Info) Description 12/21/2018 Transcribed Document [facility] [place] Family Medicine [facility] [place] [address] ProviderJessie MD [address] [place] [address] Social History Tobacco Use Types Packs/Day Years Used Date Smoking Tobacco: Never Assessed Comments Unknown Sex and Gender Information Value Date Recorded Sex Assigned at Not on file Legal Sex Female 7:30 PM CDT Gender Identity Not on file Sexual Orientation Not on file documented as of this encounter Miscellaneous Notes * Cerner Conversion Note - Jessie Yuen MD - 12/21/2018 11:50 AM [facility] [address] , [place], [place] [id number] Patient Copy Patient Information: Name: SKYLER MONTOYA Current Date: 12/21/2018 11:50:40 : 1940 Patient Address: [address] [place] [id number] Patient Attending Physician: FREDY YAÑEZ MD-CAR Primary Care Provider: TARA CHEN (REF), -MED Primary Care Provider Discharge Diagnosis: CAD (coronary artery disease); DM (diabetes mellitus); Exertional angina; HLD (hyperlipidemia); HTN (hypertension); Hx of CABG; DANTE (obstructive sleep apnea); Paroxysmal A-fib Weight on Admission: 158 lb, 0 oz Comment: Follow-up Instructions: With: Address: When: [facility] [address], [place] [address] Business (1) In 1 month 01/21/2019 With: Address: When: [facility] [address], [address] [place], [place] [id number] Business (1) Within 2 to 5 weeks [...] What foods can I eat? GrainsBreads, including Indonesian, white, jie, wheat, raisin, rye, oatmeal, and Sri Lankan. Tortillas that are neither fried nor made with lard or trans fat. Low-fat rolls, including hotdog and hamburger buns and Macanese muffins. Biscuits. Muffins. Waffles. Pancakes. Light popcorn. Whole-grain cereals. Flatbread. [place] toast. Pretzels. Breadsticks. Rusks. Low-fat snacks. Low-fat [...] cottage cheese. Whole-milk cheeses, including blue (fredo), Nye Armand, Brie, Nate, Nigerian, Havarti, Jordanian, cheddar, Camembert, and [place]. Whole or 2% milk that is liquid, [...] that has suet, meat fat, or shortening. [place] butter, hydrogenated oils, palm oil, coconut oil, [...] 12/25/2012 Document Revised: 03/10/2017 Document Reviewed: 02/04/2015 [employer] Interactive Patient Education ? 2017 [employer] Groin Site Care Refer to this [...] Document Reviewed: 11/05/2011 ExitCare? Patient Information ?2013 [employer] II. Angiogram An angiogram, also called angiography, is [...] including vitamins, herbs, eye drops, creams, and zipl-sjq-dtzwglz medicines. ??? Any problems you or family [...] 03/06/2014 Elsevier Interactive Patient Education ? 2017 [employer] Medication Leaflets: valsartan (elin LILY foster) [...] valsartan; ?? if you are on a aly-lamf-cpwz; ?? if you are dehydrated; or ?? [...] may report side effects to FDA at 6-188-KXI-6453. What other drugs will affect valsartan? Tell [...] may interact with valsartan, including prescription and ctvo-myx-zxvrxkv medicines, vitamins, and herbal products. Not all [...] to ensure that the information provided by [employer]. ('[employer]') is accurate, up-to-date, and complete, but no guarantee is made to that effect. Drug information contained herein may be time sensitive. [employer] information has been compiled for use by healthcare practitioners and consumers in the [place] and therefore [employer] does not warrant that uses outside of the [place] are appropriate, unless specifically indicated otherwise. [employer]'s drug information does not endorse drugs, diagnose patients or recommend therapy. [employer]'s drug information is an informational resource [...] effective or appropriate for any given patient. [facility] does not assume any responsibility for any aspect of healthcare administered with the aid of information [facility] provides. The information contained herein is not intended to cover all possible uses, directions, precautions, warnings, drug interactions, allergic reactions, or adverse effects. If you have questions about the drugs you are taking, check with your doctor, nurse or pharmacist. Copyright 8336-5482 [facility]. Version: 16.05. Revision Date: 09/08/2016. hydralazine (bob [...] may report side effects to FDA at 0-710-PCT-5481. What other drugs will affect hydralazine? Tell your doctor about all your current medicines and any you start or stop using, especially: ? diazoxide (an injectable blood pressure medication); or ?? an MAO inhibitor--isocarboxazid, linezolid, methylene blue injection, phenelzine, rasagiline, selegiline, tranylcypromine, and others. This list is not complete. Other drugs may interact with hydralazine, including prescription and kbwv-syo-efivrcl medicines, vitamins, and herbal products. Not all [...] to ensure that the information provided by [employer]') is accurate, up-to-date, and complete, but no guarantee is made to that effect. Drug information contained herein may be time sensitive. [employer] information has been compiled for use by healthcare practitioners and consumers in the [place] and therefore [employer] does not warrant that uses outside of the [place] are appropriate, unless specifically indicated otherwise. [employer]'s drug information does not endorse drugs, diagnose patients or recommend therapy. [employer] drug information is an informational resource designed [...] effective or appropriate for any given patient. [employer] does not assume any responsibility for any aspect of healthcare administered with the aid of information [employer] provides. The information contained herein is not intended to cover all possible uses, directions, precautions, warnings, drug interactions, allergic reactions, or adverse effects. If you have questions about the drugs you are taking, check with your doctor, nurse or pharmacist. Copyright 1091-2066 [employer]. Version: 5.01. Revision Date: 10/26/2017. amlodipine (am [...] may report side effects to FDA at 6-800-YCT-9939. What other drugs will affect amlodipine? Tell your doctor about all your current medicines and any you start or stop using, especially: ? nitroglycerin; ?? simvastatin (Zocor, Simcor, Vytorin); or ?? any other heart or blood pressure medications. This list is not complete. Other drugs may interact with amlodipine, including prescription and ktol-psh-uagdpen medicines, vitamins, and herbal products. Not all [...] to ensure that the information provided by [employer]') is accurate, up-to-date, and complete, but no guarantee is made to that effect. Drug information contained herein may be time sensitive. [employer] information has been compiled for use by healthcare practitioners and consumers in the [place] and therefore [employer] does not warrant that uses outside of the [place] are appropriate, unless specifically indicated otherwise. [employer] drug information does not endorse drugs, diagnose patients or recommend therapy. [employer] drug information is an informational resource designed [...] effective or appropriate for any given patient. [employer] does not assume any responsibility for any aspect of healthcare administered with the aid of information [employer] provides. The information contained herein is not intended to cover all possible uses, directions, precautions, warnings, drug interactions, allergic reactions, or adverse effects. If you have questions about the drugs you are taking, check with your doctor, nurse or pharmacist. Copyright 8260-3938 [employer]. Version: 14.. Revision Date: 01/24/2017. clopidogrel (kloe [...] may report side effects to FDA at 7-956-REP-4784. What other drugs will affect clopidogrel? Certain other medicines may increase your risk of bleeding, including aspirin. Avoid taking aspirin unless your doctor tells you to. Tell your doctor about all your other medicines, especially: ? any other medicines to treat or prevent blood clots; ?? a stomach acid roller embosser such as omeprazole, Nexium, or Prilosec; ?? an antidepressant; ?? an opioid medication; ?? a blood thinner--warfarin, Coumadin, Jantoven; or ?? NSAIDs (nonsteroidal anti-inflammatory drugs)--ibuprofen (Advil, Motrin), naproxen (Aleve), celecoxib, diclofenac, indomethacin, meloxicam, and others. This list is not complete. Other drugs may affect clopidogrel, including prescription and zoas-njr-aulgfkm medicines, vitamins, and herbal products. Not all [...] to ensure that the information provided by [employer]') is accurate, up-to-date, and complete, but no guarantee is made to that effect. Drug information contained herein may be time sensitive. [employer] information has been compiled for use by healthcare practitioners and consumers in the [place] and therefore [employer] does not warrant that uses outside of the [place] are appropriate, unless specifically indicated otherwise. [employer]'s drug information does not endorse drugs, diagnose patients or recommend therapy. [employer] drug information is an informational resource designed [...] effective or appropriate for any given patient. [employer] does not assume any responsibility for any aspect of healthcare administered with the aid of information [employer] provides. The information contained herein is not intended to cover all possible uses, directions, precautions, warnings, drug interactions, allergic reactions, or adverse effects. If you have questions about the drugs you are taking, check with your doctor, nurse or pharmacist. Copyright 8228-6145 [employer]. Version: 15.01. Revision Date: 08/07/2018. ranolazine (ra [...] following drugs: ? clarithromycin; ?? nefazodone; ?? Capitan's wort; ?? antifungal medicine--itraconazole, ketoconazole; ?? HIV [...] may report side effects to FDA at 2-620-DGT-3220. What other drugs will affect ranolazine? Many [...] interact with ranolazine. This includes prescription and ekbi-vus-jahebfk medicines, vitamins, and herbal products. Give a [...] to ensure that the information provided by [employer] ('[employer]') is accurate, up-to-date, and complete, but no guarantee is made to that effect. Drug information contained herein may be time sensitive. [employer] information has been compiled for use by healthcare practitioners and consumers in the [place] and therefore [employer] does not warrant that uses outside of the [place] are appropriate, unless specifically indicated otherwise. [employer]'s drug information does not endorse drugs, diagnose patients or recommend therapy. [employer] drug information is an informational resource designed [...] effective or appropriate for any given patient. [employer] does not assume any responsibility for any aspect of healthcare administered with the aid of information [employer] provides. The information contained herein is not intended to cover all possible uses, directions, precautions, warnings, drug interactions, allergic reactions, or adverse effects. If you have questions about the drugs you are taking, check with your doctor, nurse or pharmacist. Copyright 9858-1063 [employer]. Version: 11.. Revision Date: 12/04/2015. CIGARETTE SMOKING: The facts are clear, cigarette smoking will shorten your life. Smoking can cause many illnesses along the way. As a healthcare provider, we recommend that you stop smoking. Assistance with quitting is available by contacting 0-224-RABV-NOW. This is a free resource providing counseling, [...] Be sure to sign up for the [employer]weather patient portal, which gives you 09/05 access to your medical information ??? including these discharge instructions ??? using your computer, smartphone, or tablet. Just go to [employer] to get started. Questions? Call . [facility] would like to thank you for allowing us to assist you with your healthcare needs. MICHELE Skaggs JUDY D, (or cash application representative) have received the above patient education materials/instructions and have verbalized understanding: Patient Signature _ Date/Time Patient Bench Jeweler Signature (if needed) Date/Time Clinician/Hospital Bench Jeweler Signature (if needed) Date/Time Electronically signed by [facility], [facility] Conversion Deburrer Cerner at 02/04/2023 1:57 PM CDT documented in this encounter Plan of Treatment Not on file documented as of this encounter Visit Diagnoses Not on filedocumented in this encounter Care Teams Thread Pulling Machine Attendant Relationship Specialty Start Date End Date Jay Howell MD [address] [place] [phone] PCP - General Emergency Medicine 11/12/23 documented as of this encounter
--- OUTSIDE RECORDS SUMMARY | 2025-07-24 06:56 | XMS_ITS | Encounter Summary ---
Author Organization [employer] ([place], [place], [place], [place]) Address [address] [place] [address] Care Team Providers Care Mechanical Systems Control Engineer Name Role Phone Jay Howell MD Primary Care Provider [phone] Encounter Details Date Type Department Care Team (Late st Contact Info) Description 02/13/2021 Transcribed Document [facility] [place] Family Medicine [address] [place] [address] ProviderJessie MD [address] [place], [place] [address] Social History Tobacco Use Types Packs/Day Years Used Date Smoking Tobacco: Never Assessed Comments Unknown Sex and Gender Information Value Date Recorded Sex Assigned at Not on file Legal Sex Female 7:30 PM CDT Gender Identity Not on file Sexual Orientation Not on file documented as of this encounter Miscellaneous Notes * Cerner Conversion Note - Historical ProviderMD - 02/13/2021 11:30 AM CDT [facility] Saji PreOp Summary Primary Physician: FABY GRIMM MD Finalized Date/Time: 02/13/21 11:03:33 Pt. Name: SKYLER MONTOYAO.B./Sex: 1940 Female Med Rec #: [id number] Physician: FABY GRIMM MD Financial #: [id number] Pt. Type: O Room/Bed: END/ Admit/Disch: 02/13/21 09:44:00 - Institution: [facility] Endo PreOp Case Times Entry 1 In [...] NON-EXEMPT 02/13/21 11:03 Electronically signed by [facility] Conversion Tax Compliance Officer Cerner at 02/04/2023 2:00 PM CDT documented in this encounter Plan of Treatment Not on file documented as of this encounter Visit Diagnoses Not on filedocumented in this encounter Care Teams Mechanical Systems Control Engineer Relationship Specialty Start Date End Date Jay Howell MD [address] [place] [phone] PCP - General Emergency Medicine 11/12/23 documented as of this encounter
--- OUTSIDE RECORDS SUMMARY | 2025-07-24 06:56 | XMS_ITS | Encounter Summary ---
Author Organization [employer] ([place], [place], [place], [place]) Address [address] [place] [address] Care Team Providers Care Road Gang Supervisor Name Role Phone Jay Howell MD Primary Care Provider [phone] Encounter Details Date Type Department Care Team (Late st Contact Info) Description 12/20/2018 Transcribed Document [facility] [place] Family Medicine [address] [place] [address] ProviderJessie MD [address] [place] [address] Social History Tobacco Use Types Packs/Day Years Used Date Smoking Tobacco: Never Assessed Comments Unknown Sex and Gender Information Value Date Recorded Sex Assigned at Not on file Legal Sex Female 7:30 PM CDT Gender Identity Not on file Sexual Orientation Not on file documented as of this encounter Miscellaneous Notes * Cerner Conversion Note - Historical ProviderMD - 12/20/2018 3:14 PM SUPERVISOR WOOD CREW Pain Assessment Entered On: 12/21/2018 4:53 EST [...] filedocumented in this encounter Care Teams Road Gang Supervisor Relationship Specialty Start Date End Date Jay Howell MD [address] [place] [phone] PCP - General Emergency Medicine 11/12/23 documented as of this encounter
--- OUTSIDE RECORDS SUMMARY | 2025-07-24 06:56 | XMS_ITS | Encounter Summary ---
Author Organization [employer] ([place], [place], [place], [place]) Address [address] [place] [address] Care Team Providers Care Waistband Setter Lockstitch Name Role Phone Jay Howell MD Primary Care Provider [phone] Encounter Details Date Type Department Care Team (Late st Contact Info) Description 08/29/2020 Transcribed Document [facility] [place] [address] [place] [address] ProviderJessie MD [address] [place] [address] Social History Tobacco Use Types Packs/Day Years Used Date Smoking Tobacco: Never Assessed Comments Unknown Sex and Gender Information Value Date Recorded Sex Assigned at Not on file Legal Sex Female 7:30 PM CDT Gender Identity Not on file Sexual Orientation Not on file documented as of this encounter Miscellaneous Notes * Cerner Conversion Note - Jessie ProviderMD - 08/29/2020 2:50 PM COMPUTER TECHNICAL SPECIALIST WOCN Inpatient Documentation Entered On: 08/29/2020 14:52 [...] Ulcer WOCN Wound Pressure Ulcer Documentation : [id number]-Ekpe Abnormality: Leg Left Lower, Anterior on 08/29/2020 [...] on filedocumented in this encounter Care Teams Waistband Setter Lockstitch Relationship Specialty Start Date End Date Jay Howell MD [address] [place] [phone] PCP - General Emergency Medicine 11/12/23 documented as of this encounter
--- OUTSIDE RECORDS SUMMARY | 2025-07-24 06:56 | XMS_ITS | Encounter Summary ---
Author Organization [employer] ([place], [place], [place], [place]) Address [address] [place] [address] Care Team Providers Care Inside Sales Assistant Name Role Phone Jay Howell MD Primary Care Provider [phone] Encounter Details Date Type Department Care Team (Late st Contact Info) Description 12/20/2018 Transcribed Document [facility] [place] Family Medicine [address] [place] [address] ProviderJessie MD [address] [place] [address] Social History Tobacco Use Types Packs/Day Years Used Date Smoking Tobacco: Never Assessed Comments Unknown Sex and Gender Information Value Date Recorded Sex Assigned at Not on file Legal Sex Female 7:30 PM CDT Gender Identity Not on file Sexual Orientation Not on file documented as of this encounter Miscellaneous Notes * Cerner Conversion Note - Historical ProviderMD - 12/20/2018 12:01 PM SCRIPT COORDINATOR Spiritual Care Assessment Entered On: 12/20/2018 13:37 EST Performed On: 12/20/2018 13:13 EST by ARTHUR HONEYCUTT General Information Initial Visit : Yes Referred by : Patient Referral Reason Comment : Advance directive Ministry Provided to : Patient, Family/Significant other Jain Preference : Holiness ARTHUR HONEYCUTT - 12/20/2018 13:35 EST Spiritual [...] supported, Feelings expressed, Information provided Spiritual and Jain : Spiritual/Jain support provided Change, Adjustment and Loss : Provided support for current loss/grief ARTHUR HONEYCUTT P - 12/20/2018 13:35 EST Electronically signed by [facility], [facility] Conversion Machine Maintenance Repairer Cerner at 02/04/2023 2:01 PM CDT documented in this encounter Plan of Treatment Not on file documented as of this encounter Visit Diagnoses Not on filedocumented in this encounter Care Teams Inside Sales Assistant Relationship Specialty Start Date End Date Jay Howell MD [address] [place] [phone] PCP - General Emergency Medicine 11/12/23 documented as of this encounter
--- OUTSIDE RECORDS SUMMARY | 2025-07-24 06:56 | XMS_ITS | Encounter Summary ---
Author Organization [employer] ([place], [place], [place], [place]) Address [address] [place] [address] Care Team Providers Care Director Corporate Name Role Phone Jay Howell MD Primary Care Provider [phone] Encounter Details Date Type Department Care Team (Late st Contact Info) Description 02/13/2021 Transcribed Document [facility] [place] Family Medicine [address] [place] [address] ProviderJessie MD [address] [place], [place] [id number] Social History Tobacco Use Types Packs/Day Years [...] Yuen MD - 02/13/2021 12:19 PM CDT [facility] [place] [address] SKYLER MONTOYA :1940 Visit Time:02/13/2021 What to do next Your Diagnosis Personal history of colonic polyps Unspecified abdominal pain Follow-Up Appointments Follow Up with FABY GRIMM MD When Only if needed Where: [address] [facility] [address] [place] [address]- Medications What How Much When Instructions Next [...] counseling. ??? Working with a diet and nutrition worker (dietitian) to help create a food plan [...] for some people. General instructions ??? Take ssbd-kmf-dbdavnj and prescription medicines and supplements only as [...] provider. Document Revised: 09/26/2018 Document Reviewed: 09/26/2018 [employer] Patient Education ?? 2020 [employer] Segura's Esophagus Segura's esophagus occurs when [...] Tomatoes and foods made with tomatoes. ? [place] or spicy foods. ? Chocolate and peppermint. ??? Do not drink alcohol. General instructions ??? Take mwdw-jzf-adzexgh and prescription medicines only as told by [...] provider. Document Revised: 01/29/2019 Document Reviewed: 01/29/2019 [employer] Patient Education ?? 2020 [employer] ESOPHAGOGASTRODUODENOSCOPY Care After Read the instructions [...] eating solid foods. General instructions ??? Take uauv-kxa-wknjdun and prescription medicines only as told by [...] provider. Document Revised: 01/01/2019 Document Reviewed: 01/23/2017 [employer] Patient Education ?? 2020 [employer]. Gastritis, Adult Gastritis is inflammation of the [...] medicines. These include steroids, antibiotics, and some vear-rpp-snnttvp medicines, such as aspirin or ibuprofen. ??? [...] these instructions at home: Medicines ??? Take roba-tdm-zwwrnjk and prescription medicines only as told by [...] Reviewed: 02/20/2019 Elsevier Patient Education ?? 2020 [employer] Colonoscopy, Adult A colonoscopy is a [...] including vitamins, herbs, eye drops, creams, and ekgg-zjc-aehiwul medicines. ??? Any problems you or family [...] tells you to take them. ??? Taking rlks-afx-rtgbpts medicines, vitamins, herbs, and supplements. General instructions [...] provider. Document Revised: 04/25/2020 Document Reviewed: 04/25/2020 [employer] Patient Education ?? 2020 [employer] Colon Polyps Polyps are tissue growths [...] provider. Document Revised: 01/18/2019 Document Reviewed: 01/18/2019 [employer] Patient Education ?? 2020 [employer]. Emergency Awareness and Preventative Care STROKE is [...] Assistance with quitting is available by contacting 8-709-HJCF-NOW. This is a free resource providing counseling, [...] was given the opportunity to ask questions. Patient/Frame Bander Name: Patient/Frame Bander Signature: Relationship to Patient: Clinician/Hospital Frame Bander Signature: Date: Electronically signed by Abel Finnegan Conversion Trailhead Construction Worker Cerner at 02/04/2023 2:16 PM CDT documented in this encounter Plan of Treatment Not on file documented as of this encounter Visit Diagnoses Not on filedocumented in this encounter Care Teams Director Corporate Relationship Specialty Start Date End Date Jay Howell MD [address] [place] [phone] PCP - General Emergency Medicine 11/12/23 documented as of this encounter
--- OUTSIDE RECORDS SUMMARY | 2025-07-24 06:56 | XMS_ITS | Encounter Summary ---
Author Organization [employer] ([place], [place], [place], [place]) Address [address] [place] [address] Care Team Providers Care Adjunct Nursing Faculty Name Role Phone Jay Howell MD Primary Care Provider [phone] Encounter Details Date Type Department Care Team (Late st Contact Info) Description 08/29/2020 Transcribed Document [facility] [place] [address] [place] [address] ProviderJessie MD [address] [place] [address] Social History Tobacco Use Types Packs/Day Years Used Date Smoking Tobacco: Never Assessed Comments Unknown Sex and Gender Information Value Date Recorded Sex Assigned at Not on file Legal Sex Female 7:30 PM CDT Gender Identity Not on file Sexual Orientation Not on file documented as of this encounter Miscellaneous Notes * Cerner Conversion Note - Jessie ProviderMD - 08/29/2020 2:00 AM CRANKSHAFT BALANCER Assembler Camper Details Entered On: 08/29/2020 6:08 EST Performed [...] 08/29/2020 6:07 EST Electronically signed by Sivan [facility] Conversion Bowling Floor Desk Clerk Cerner at 02/04/2023 1:58 PM CDT documented in this encounter Plan of Treatment Not on file documented as of this encounter Visit Diagnoses Not on filedocumented in this encounter Care Teams Adjunct Nursing Faculty Relationship Specialty Start Date End Date Jay Howell MD [address] [place] [phone] PCP - General Emergency Medicine 11/12/23 documented as of this encounter
--- OUTSIDE RECORDS SUMMARY | 2025-07-24 06:56 | XMS_ITS | Encounter Summary ---
Author Organization [employer] ([place], [place], [place], [place]) Address [address] [place] [address] Care Team Providers Care Customer Supply Coordinator Name Role Phone Jay Howell MD Primary Care Provider [phone] Encounter Details Date Type Department Care Team (Late st Contact Info) Description 08/29/2020 Transcribed Document [facility] Family Medicine [address] [place] [address] ProviderJessie MD [address] [place], [place] [address] Social History Tobacco Use Types Packs/Day Years Used Date Smoking Tobacco: Never Assessed Comments Unknown Sex and Gender Information Value Date Recorded Sex Assigned at Not on file Legal Sex Female 7:30 PM CDT Gender Identity Not on file Sexual Orientation Not on file documented as of this encounter Miscellaneous Notes * Cerner Conversion Note - Jessie ProviderMD - 08/29/2020 1:45 PM OFFICE MACHINE SERVICER APPRENTICE RX Interventions Entered On: 08/29/2020 15:05 EST Performed On: 08/29/2020 15:03 EST by SLICK BRADLEY [facility] Clinical Interventions Clarify Drug Order : Yes SLICK BRADLEY RP - 08/29/2020 15:03 EST Clarify Drug Order Clarify Drug Order, Order : aprin gtt as bridge therapy. S/W Leti, wt 69kg (rounded to 70kg) NO bolus per attending. Start heparin gtt at 12.6ml/h Clarify Drug Order, Value : 0 Dollar Clarify Drug Order, Time : 10 Minute(s) SLICK BRADLEY, [facility] - 08/29/2020 15:03 EST Electronically signed by [facility] Conversion Floral Designer Cerner at 02/04/2023 2:17 PM CDT documented in this encounter Plan of Treatment Not on file documented as of this encounter Visit Diagnoses Not on filedocumented in this encounter Care Teams Customer Supply Coordinator Relationship Specialty Start Date End Date Jay Howell MD [address] [place] [phone] PCP - General Emergency Medicine 11/12/23 documented as of this encounter
--- OUTSIDE RECORDS SUMMARY | 2025-07-24 06:56 | XMS_ITS | Encounter Summary ---
Author Organization [employer] ([place], [place], [place], [place]) Address [address] [place] [address] Care Team Providers Care Residential Air Sealing Technician Name Role Phone Jay Howell MD Primary Care Provider [phone] Encounter Details Date Type Department Care Team (Late st Contact Info) Description 02/13/2021 Transcribed Document [facility] [place] [address] [place] [address] ProviderJessie MD [address] [place], [place] [phone] Social History Tobacco Use Types Packs/Day Years Used Date Smoking Tobacco: Never Assessed Comments Unknown Sex and Gender Information Value Date Recorded Sex Assigned at Not on file Legal Sex Female 7:30 PM CDT Gender Identity Not on file Sexual Orientation Not on file documented as of this encounter Miscellaneous Notes * Cerner Conversion Note - Historical ProviderMD - 02/13/2021 11:43 AM CDT [facility] Saji IntraOp Summary Primary Physician: FABY GRIMM MD Finalized Date/Time: 02/13/21 12:03:45 Pt. Name: SKYLER MONTOYAO.B./Sex: 1940 Female Med Rec #: [id number] Physician: FABY GRIMM MD Financial #: [id number] Pt. Type: O Room/Bed: END/ Admit/Disch: 02/13/21 09:44:00 - Institution: [facility] - Case Attendance Entry 1 Entry 2 Entry 3 Case Attendee FABY GRIMM MD MILLER, MELISSA A RN ELVIN HUNG Role Performed Surgeon/Proceduralist, Surveillance System Monitor, First Scrub, First First Time In 02/13/21 [...] SHANA M, STEPHANIE, Denisa Anderson Rn -ANS ELECTRIC MOTOR TESTER-ANS Role Performed Anesthesiologist of ELECTRIC MOTOR TESTER/Nurse Nursing Education Specialist Surveillance System Monitor, First Record Time In 02/13/21 11:35:00 02/13/21 [...] RN 02/13/21 12:00:47 02/13/21 12:00:47 02/13/21 12:00:47 [facility] Endo - Case Attendance Audit 02/13/21 12:00:47 Ship Mate: [id number] Modifier: [id number] 1 <+> Time Out 1 <*> Procedure [...] Biopsy, Colon Biopsy, Colon Polypectomy 02/13/21 12:00:36 Ship Mate: [id number] Modifier: [id number] 1 <*> Procedure Colonoscopy, Esophagogastroduodenoscopy, Esophageal Biopsy, Gastric Biopsy, Colon Biopsy 2 <*> Procedure Esophageal Biopsy, Gastric Biopsy, Colon Biopsy 3 <*> Procedure Esophageal Biopsy, Gastric Biopsy, Colon Biopsy 4 <*> Procedure Esophageal Biopsy, Gastric Biopsy, Colon Biopsy 5 <*> Procedure Esophageal Biopsy, Gastric Biopsy, Colon Biopsy 6 <*> Procedure Esophageal Biopsy, Gastric Biopsy, Colon Biopsy 02/13/21 11:58:05 Ship Mate: [id number] Modifier: [id number] 1 <*> Procedure Colonoscopy, Esophagogastroduodenoscopy <+> 2 Procedure <+> 3 Procedure <+> 4 Procedure <+> 5 Procedure <+> 6 Procedure 02/13/21 11:48:04 Ship Mate: [email or web address] Modifier: [id number] <+> Time In 1 <*> Procedure Colonoscopy, Esophagogastroduodenoscopy <+> 2 Time In <+> 2 Time Out <+> 3 Time In <+> 4 Time In <+> 5 Time In <+> 6 Case Attendee <+> 6 Role Performed <+> 6 Time In 02/13/21 11:38:46 Ship Mate: [email or web address] Modifier: [email or web address] <+> 2 Case Attendee <+> 2 Role Performed <+> 3 Case Attendee <+> 3 Role Performed <+> 4 Case Attendee <+> 4 Role Performed <+> 5 Case Attendee <+> 5 Role Performed [facility] Endo - Case times Entry 1 Patient In Room Time 02/13/21 11:35:00 Out Room Time 02/13/21 12:02:00 Anesthesia Start Time 02/13/21 11:35:00 Stop Time 02/13/21 12:02:00 Surgery / Procedure Times Start Time 02/13/21 11:43:00 Stop Time 02/13/21 12:00:00 Last Modified By: Denisa Anderson RN 02/13/21 12:00:45 [facility] Endo - Case times Audit 02/13/21 12:00:45 Ship Mate: [id number] Modifier: [id number] <+> 1 Out Room Time <+> 1 Stop Time <+> 1 Stop Time 02/13/21 11:45:26 Ship Mate: [email or web address] Modifier: [id number] <+> 1 Start Time [facility] Endo - Cautery Entry 1 ESU Identification Cautery Type Monopolar ESU ID Number [id number] ID Type Hospital Number Cautery Settings Cut Setting 5 Coag Setting 25 ESU Grounding Pad Ground Pad Type Adult Grounding Pad Site Right thigh Grounding Pad ELVIN HUNG Applied By Grounding Pad Site Warm, dry and intact Skin Condition Before Cautery Grounding Pad Site Unchanged Skin Condition After Cautery Last Modified By: Denisa Anderson RN 02/13/21 12:03:44 [facility] Endo - Cautery Audit 02/13/21 12:03:44 Ship Mate: [id number] Modifier: [id number] <+> 1 ID Number [facility] Endo - Cultures and Spec Summary Entry 1 Cultrures and Specimens Specimen Ordered: Yes Test(s) Routine/Path-Lab Requested/Final Disposition Last Modified By: Denisa Anderson RN 02/13/21 11:59:20 [facility] Endo - Delays Entry 1 Delay Reason Other, No Delay Duration 0 Minute(s) Last Modified By: LO HOFF RN 02/13/21 11:38:59 [facility] Endo - Departure from OR Entry 1 Integumentary Assessment Integumentary WDL Assessment WDL Transfer/Handoff Transfer to PACU Phase I Handoff Method Bedside/Face to face Post-op Transport Stretcher/Gurney Via Patient Transport LO HOFF RN, Accompanied by TRENTON GONZALEZ APRN, ELECTRIC MOTOR TESTER-ANS Last Modified By: LO HOFF RN 02/13/21 11:39:01 [facility] Endo - Endoscopy Details Entry 1 Abdomen Procedure Soft, Non-Tender Assessment Procedure Abdomen 02/13/21 11:39:00 Assessment D/T Radio Frequency Ablation Abdominal Pressure Last Modified By: LO HOFF RN 02/13/21 11:39:05 [facility] Endo - Fire Risk Assessment Entry [...] Modified By: LO HOFF RN 02/13/21 11:39:08 [facility] Endo - General Case Store Worker 1 Case Information OR Endo 01 [facility] Case Level 1 Room Verified Yes Wound Class III - Contaminated Specialty Gastroenterology Anesthesia Type General ASA Class 4 Diagnosis Preop Diagnosis dyspepsia, change in bowel habits Postop Same As Preop No Postop Diagnosis chronic gastritis, alexis's esophagus, IBS, colon polyp Last Modified By: Denisa Anderson RN 02/13/21 12:02:28 [facility] Endo - General Case Data Audit 02/13/21 12:02:28 Ship Mate: [email or web address] Modifier: [id number] 1 <*> Postop Same As Preop Yes 1 <*> Postop Diagnosis dyspepsia, change in bowel habits [facility] Endo - Intraoperative Assessment Entry 1 Valid History / Yes Physical in Chart Preoperative Yes Checklist Reviewed/Evaluated Patient is Latex No Sensitive Level of WDL Consciousness (WDL = Alert, Oriented to Person, Place, and Time) Last Modified By: LO HOFF RN 02/13/21 11:39:33 [facility] Endo - Intraoperative Equipment Entry 1 Equipment Intraop Monitoring Electrocardiogram Three lead placement (ECG) Electrode Placement Blood Pressure Arm, left upper Location Pulse Oximeter Hand, right Probe Site Antiembolic Devices Scopes Flexible Endoscopes Gastroscope Used Scope Serial E, P Number/Identificatio n Number Photo/Video Documentation Photo Yes Video No Last Modified By: LO HOFF RN 02/13/21 11:39:46 [facility] Endo - Patient Positioning Entry 1 [...] Modified By: LO HOFF RN 02/13/21 11:39:48 [facility] Endo - Sign In Entry 1 Patient, Site, Yes Procedure Identified Surgical Consent Yes Confirmed Surgical Site N/A Marked by person performing procedure Airway Hypothermia Risk No Warming Measures No Taken Last Modified By: LO HOFF RN 02/13/21 11:39:54 [facility] Endo - Sign Out Entry 1 [...] Modified By: Denisa Anderson RN 02/13/21 12:01:16 [facility] Endo - Surgical Procedures Entry 1 [...] RN 02/13/21 12:01:06 02/13/21 12:01:06 02/13/21 12:01:06 [facility] Endo - Surgical Procedures Audit 02/13/21 12:01:06 Ship Mate: [id number] Modifier: [id number] <+> 1 Stop <+> 3 Stop <+> 4 Stop <+> 5 Stop <+> 6 Stop 02/13/21 12:00:33 Ship Mate: [id number] Modifier: [id number] <+> 6 Procedure <+> 6 Primary Procedure <+> 6 Primary Surgeon <+> 6 Specialty <+> 6 Start <+> 6 Wound Class <+> 6 Anesthesia Type <+> 6 Additional Procedure Description <+> 6 Physician States Cecum Reached 02/13/21 11:58:01 Ship Mate: [email or web address] Modifier: [id number] 1 <*> Procedure Colonoscopy 1 <+> Start [...] Anesthesia Type <+> 5 Additional Procedure Description [facility] Endo - Time Out Entry 1 [...] RN 02/13/21 12:03 Electronically signed by Sivan [facility] Conversion Integrated Marketing Specialist Cerner at 02/04/2023 2:05 PM CDT documented in this encounter Plan of Treatment Not on file documented as of this encounter Visit Diagnoses Not on filedocumented in this encounter Care Teams Residential Air Sealing Technician Relationship Specialty Start Date End Date Jay Howell MD [address] [place] [phone] PCP - General Emergency Medicine 11/12/23 documented as of this encounter
--- OUTSIDE RECORDS SUMMARY | 2025-07-24 06:56 | XMS_ITS | Encounter Summary ---
Author Organization [employer] ([place], [place], [place], [place]) Address [address] [place] [address] Care Team Providers Care Sightseeing Guide Name Role Phone Jay Howell MD Primary Care Provider [phone] Encounter Details Date Type Department Care Team (Late st Contact Info) Description 12/20/2018 Transcribed Document [facility] [place] Family Medicine [address] [place] [address] ProviderJessie MD [address] [place] [address] Social History Tobacco Use Types Packs/Day Years Used Date Smoking Tobacco: Never Assessed Comments Unknown Sex and Gender Information Value Date Recorded Sex Assigned at Not on file Legal Sex Female 7:30 PM CDT Gender Identity Not on file Sexual Orientation Not on file documented as of this encounter Miscellaneous Notes * Cerner Conversion Note - Jessie ProviderMD - 12/20/2018 9:47 PM DISTANCE LEARNING TECHNICIAN Rapid Response Team Documentation Entered On: 12/20/2018 [...] Admission Diagnosis : 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 EKG shows no ST elevation. Cardiac AFFIRMATIVE ACTION SPECIALIST notified. elevated blood pressure as well. nitro ordered and given. chest pain subsided. Patient Condition at End of Event : No S/S of Acute Distress Patient Disposition Post Event : No change in location/level of care Rapid Response Sightseeing Guide #1 : LO THEODORE RN BENGE, MELISSA V, RN - 12/20/2018 22:51 EST Rapid Response Systems Assessment Oxygen Therapy Mode : Nasal cannula Oxygen Flow Rate : 2 Liter/Min Cardiovascular Symptoms : Chest discomfort at rest Heart Rhythm : Regular Cardiac Rhythm : Normal sinus rhythm LO THEODORE RN - 12/20/2018 22:51 EST Electronically signed by [facility] Conversion Machine Package Sealer Cerner at 02/04/2023 2:10 PM CDT documented in this encounter Plan of Treatment Not on file documented as of this encounter Visit Diagnoses Not on filedocumented in this encounter Care Teams Sightseeing Guide Relationship Specialty Start Date End Date Jay Howell MD [address] [place] [phone] PCP - General Emergency Medicine 11/12/23 documented as of this encounter
--- OUTSIDE RECORDS SUMMARY | 2025-07-24 06:56 | XMS_ITS | Encounter Summary ---
Author Organization [employer] ([place], [place], [place], [place]) Address [address] [place] [address] Care Team Providers Care Tailing Machine Operator Name Role Phone Jay Howell MD Primary Care Provider [phone] Encounter Details Date Type Department Care Team (Late st Contact Info) Description 10/13/2020 Transcribed Document [facility] [place] [address] [place] [address] ProviderJessie MD [address] [place] [address] Social History Tobacco Use Types Packs/Day Years Used Date Smoking Tobacco: Never Assessed Comments Unknown Sex and Gender Information Value Date Recorded Sex Assigned at Not on file Legal Sex Female 7:30 PM CDT Gender Identity Not on file Sexual Orientation Not on file documented as of this encounter Miscellaneous Notes * Cerner Conversion Note - Historical MD Apla - 10/13/2020 6:59 PM OXYGEN THERAPY TEACHER Patient: SKYLER MONTOYA Age: 79 Years Sex: [...] results RTC prn Electronically signed by Sivan [facility] Conversion Casing In Line Setter Cerner at 02/04/2023 2:05 PM CDT documented in this encounter Plan of Treatment Not on file documented as of this encounter Visit Diagnoses Not on filedocumented in this encounter Care Teams Tailing Machine Operator Relationship Specialty Start Date End Date Jay Howell MD [address] [place] [phone] PCP - General Emergency Medicine 11/12/23 documented as of this encounter
--- OUTSIDE RECORDS SUMMARY | 2025-07-24 06:56 | XMS_ITS | Encounter Summary ---
Author Organization [employer] ([place], [place], [place], [place]) Address [address] [place] [address] Care Team Providers Care Felt Hat Inspector And Packer Name Role Phone Jay Howell MD Primary Care Provider [phone] Encounter Details Date Type Department Care Team (Late st Contact Info) Description 08/30/2020 Transcribed Document [facility] [place] Family Medicine [address] [place] [address] ProviderJessie MD [address] [place] [address] Social History Tobacco Use Types Packs/Day Years Used Date Smoking Tobacco: Never Assessed Comments Unknown Sex and Gender Information Value Date Recorded Sex Assigned at Not on file Legal Sex Female 7:30 PM CDT Gender Identity Not on file Sexual Orientation Not on file documented as of this encounter Miscellaneous Notes * Cerner Conversion Note - Jessie Yuen MD - 08/30/2020 9:36 AM BODY CORPORATE MANAGER Patient: SKYLER MONTOYA Age: 79 years [...] for this consult, Miladys Lopez, KellD PGY-1 Director Of Head [employer] Pager #: [phone] Extension #: [id number] Electronically signed by [facility], [facility] Conversion Er Registrar Cerner at 02/04/2023 2:03 PM CDT documented in this encounter Plan of Treatment Not on file documented as of this encounter Visit Diagnoses Not on filedocumented in this encounter Care Teams Felt Hat Inspector And Packer Relationship Specialty Start Date End Date Jay Howell MD [address] [place] [phone] PCP - General Emergency Medicine 11/12/23 documented as of this encounter
--- OUTSIDE RECORDS SUMMARY | 2025-07-24 06:56 | XMS_ITS | Encounter Summary ---
Author Organization [employer] ([place], [place], [place], [place]) Address [address] [place] [address] Care Team Providers Care Insulation Applicator Name Role Phone Jay Howell MD Primary Care Provider [phone] Encounter Details Date Type Department Care Team (Late st Contact Info) Description 08/29/2020 Transcribed Document [facility] [address] [place] [address] ProviderJessie MD [address] [place] [address] Social History Tobacco Use Types Packs/Day Years Used Date Smoking Tobacco: Never Assessed Comments Unknown Sex and Gender Information Value Date Recorded Sex Assigned at Not on file Legal Sex Female 7:30 PM CDT Gender Identity Not on file Sexual Orientation Not on file documented as of this encounter Miscellaneous Notes * Cerner Conversion Note - Jessie Yuen MD - 08/29/2020 2:41 PM HAIR DESIGNER On Going Discharge Planning Entered On: 08/29/2020 14:44 EST Performed On: 08/29/2020 14:41 EST by KAVITA PELLETIER RN-Program SpecialistGreen Pipefitter Progress Note Discharge Arrangements : Patient Post-Acute [...] Meeting Medical Necessity : Yes KAVITA PELLETIER RN-Program Specialist - 08/29/2020 14:41 EST Narrative Progress Note Narrative Progress Note : No DC today--INR-1.5. Hep gtt started to bridge Coumadin. NPWT for home obtained from [employer] [facility] and has been delivered to pt's room. [...] will obtain prior to dc. List of [employer]'s for [place] given to pt. She will choose and inform CM. Coumadin restarted today. CM will continue to follow. KAVITA PELLETIER RN-Program Specialist - 08/28/20 15:37:20 Pt is s/p LLE [...] past after her SIMONA and went to [facility] prior to home with HH. She is agreeable to look at list of SANDER [employer] BUFFER to make an informed decision based on quality and resource use information. Cx's are pending to determine need for IV abx at home. Likely dc in a few days. CM will continue to follow. KAVITA PELLETIER RN-Program Specialist - 08/27/20 15:14:36 KAVITA PELLETIER RN-Program Specialist - 08/29/2020 14:41 EST Electronically signed by Sivan [facility] Conversion Automatic Grinding Machine Operator Cerner at 02/04/2023 2:06 PM CDT documented in this encounter Plan of Treatment Not on file documented as of this encounter Visit Diagnoses Not on filedocumented in this encounter Care Teams Insulation Applicator Relationship Specialty Start Date End Date Jay Howell MD [address] [place] [phone] PCP - General Emergency Medicine 11/12/23 documented as of this encounter
--- OUTSIDE RECORDS SUMMARY | 2025-07-24 06:56 | XMS_ITS | Encounter Summary ---
Author Organization [employer] ([place], [place], [place], [place]) Address [address] [place] [address] Care Team Providers Care Railroad Operating Engineer Name Role Phone Jay Howell MD Primary Care Provider [phone] Encounter Details Date Type Department Care Team (Late st Contact Info) Description 08/29/2020 Transcribed Document [facility] [place] [facility] [place] [address] ProviderJessie MD [address] [place] [address] Social History Tobacco Use Types Packs/Day Years Used Date Smoking Tobacco: Never Assessed Comments Unknown Sex and Gender Information Value Date Recorded Sex Assigned at Not on file Legal Sex Female 7:30 PM CDT Gender Identity Not on file Sexual Orientation Not on file documented as of this encounter Miscellaneous Notes * Cerner Conversion Note - Historical ProviderMD - 08/29/2020 1:32 PM LOCAL SUPERINTENDENT Discharge Summary, PT Entered On: 08/29/2020 13:33 [...] - 08/29/2020 13:32 EST Electronically signed by [facility] Conversion Salon Designer Cerner at 02/04/2023 2:09 PM CDT documented in this encounter Plan of Treatment Not on file documented as of this encounter Visit Diagnoses Not on filedocumented in this encounter Care Teams Railroad Operating Engineer Relationship Specialty Start Date End Date Jay Howell MD [address] [place] [phone] PCP - General Emergency Medicine 11/12/23 documented as of this encounter
--- OUTSIDE RECORDS SUMMARY | 2025-07-24 06:56 | XMS_ITS | Encounter Summary ---
Author Organization [employer] ([place], [place], [place], [place]) Address [address] [place] [address] Care Team Providers Care Employment Trainer Name Role Phone Jay Howell MD Primary Care Provider [phone] Encounter Details Date Type Department Care Team (Late st Contact Info) Description 08/30/2020 Transcribed Document [facility] [place] Family Medicine [address] [place] [address] ProviderJessie MD [address] [place] [address] Social History Tobacco Use Types Packs/Day Years Used Date Smoking Tobacco: Never Assessed Comments Unknown Sex and Gender Information Value Date Recorded Sex Assigned at Not on file Legal Sex Female 7:30 PM CDT Gender Identity Not on file Sexual Orientation Not on file documented as of this encounter Miscellaneous Notes * Cerner Conversion Note - Jessie Yuen MD - 08/30/2020 10:43 AM LAYER OUT PLATE GLASS Patient: SKYLER MONTOYA Age: 79 years Sex: [...] level of muscle per surgery *Operation RIGHT COFFIN MAKER access - ultrasound guided Aortogram with LEFT lower extremity run-off LEFT PT angioplasty (2.5-1e642wi Nanocross) LEFT peroneal angioplasty (2.5-0j690bp Nanocross) RIGHT COFFIN MAKER closure (Angioseal) LEFT leg debridement 08/30/20 doing [...] Level 0.70 mg/dL 08/29/2020 02:04 Bun/Creatinine 22.9 CT 08/29/2020 02:04 eGFR >60 mL/min/1.73m2 08/29/2020 02:04 eGFR NonAfrican >60 mL/min/1.73m2 08/29/2020 02:04 Bun/Creatinine 22.9 CT 08/29/2020 07:33 Sodium Level 138 mmol/L 08/29/2020 02:04 Potassium Level 3.8 mmol/L 08/30/2020 04:13 Chloride Level 108 mmol/L 08/29/2020 02:04 Carbon Dioxide Level 23 mmol/L 08/29/2020 02:04 Anion Gap 10 08/29/2020 02:04 Blood Urea Nitrogen 16 mg/dL 08/29/2020 02:04 Glucose Level 108 mg/dL CT 08/29/2020 02:04 Calcium Level 9.1 mg/dL 08/29/2020 02:04 MICRO: ACC: [id number] ORDER: Culture Blood DATE: 08/25/2020 05:01 SOURCE: Blood SITE: Reports Final 08/30/2020 06:01 No growth at 5 days. Pre 08/29/2020 06:01 No growth at 4 days. Pre 08/28/2020 06:01 No growth at 3 days. Pre 08/27/2020 06:01 No growth at 2 days. Pre 08/26/2020 06:01 No growth at 1 day. Pre 08/25/2020 23:02 Culture less than 24 Hrs old == ACC: [id number] ORDER: Culture Blood DATE: 08/25/2020 05:01 SOURCE: Blood SITE: Reports Final 08/30/2020 06:01 No growth at 5 days. Pre 08/29/2020 06:02 No growth at 4 days. Pre 08/28/2020 06:01 No growth at 3 days. Pre 08/27/2020 06:01 No growth at 2 days. Pre 08/26/2020 06:01 No growth at 1 day. Pre 08/25/2020 23:02 Culture less than 24 Hrs old == ACC: [id number] ORDER: Culture Wound and Stain DATE: 08/26/2020 15:23 SOURCE: Surgical Swab SITE: Leg Lower L Reports Final 08/29/2020 08:29 No growth Pre 08/27/2020 07:14 No growth GS 08/26/2020 18:13 Few White Blood Cells No organisms seen. == ACC: [id number] ORDER: Culture Wound and Stain DATE: 08/25/2020 05:00 SOURCE: Wound SITE: Leg Lower L Reports Final 08/28/2020 08:57 No growth Pre 08/26/2020 06:23 No growth GS 08/25/2020 07:26 No organisms seen. Few White Blood Cells Rare epithelial cells == ACC: [id number] ORDER: Culture AFB and Stain DATE: 08/26/2020 13:56 SOURCE: Surgical Swab SITE: Leg Lower L Reports AFS 08/27/2020 13:07 No Acid Fast Bacilli seen == ACC: [id number] ORDER: Culture Anaerobic DATE: 08/26/2020 13:56 SOURCE: Surgical Swab SITE: Leg Lower L Reports Pre 08/28/2020 07:01 No Anaerobic growth Pre 08/27/2020 07:47 Culture in progress == ACC: [id number] ORDER: Culture Fungus DATE: 08/26/2020 13:56 SOURCE: [...] INR closely after discharge Electronically signed by Gayle Finnegan Conversion Farm Equipment Engine Mechanic Cerner at 02/04/2023 2:23 PM CDT documented in this encounter Plan of Treatment Not on file documented as of this encounter Visit Diagnoses Not on filedocumented in this encounter Care Teams Employment Trainer Relationship Specialty Start Date End Date Jay Howell MD [address] [place] [phone] PCP - General Emergency Medicine 11/12/23 documented as of this encounter
--- OUTSIDE RECORDS SUMMARY | 2025-07-24 06:56 | XMS_ITS | Encounter Summary ---
Author Organization [employer] ([place], [place], [place], [place]) Address [address] [place] [address] Care Team Providers Care Purchasing Analyst Name Role Phone Jay Howell MD Primary Care Provider [phone] Encounter Details Date Type Department Care Team (Late st Contact Info) Description 12/21/2018 Transcribed Document [facility] [place] Family Medicine [facility] [place] [address] ProviderJessie MD [address] [place] [address] Social History Tobacco Use Types Packs/Day Years Used Date Smoking Tobacco: Never Assessed Comments Unknown Sex and Gender Information Value Date Recorded Sex Assigned at Not on file Legal Sex Female 7:30 PM CDT Gender Identity Not on file Sexual Orientation Not on file documented as of this encounter Miscellaneous Notes * Cerner Conversion Note - Historical MD Alpa - 12/21/2018 7:18 AM RUSH SEATER Patient: SKYLER MONTOYA Age: 77 years Sex: [...] of motion, Normal strength. Integumentary: Warm, Dry, Standing Pine. Neurologic: Alert, Oriented. Psychiatric: Cooperative, Appropriate mood & affect. Results Review Telemetry DEC 21 04:17 140 110 10 / H 153 3.8 22 0.70 \ DEC 21 04:17 \ 11.5 / 7.2 L 150 / 35.7 \ [facility] 12/20/18; Dr. Fredy Pacheco TECHNIQUE: A 5/6-Kenyan sheath placed in the right femoral artery. Right iliac artery angiography was performed using a JR4 diagnostic catheter due to difficulty in advancing safety J-wire across the proximal right common iliac artery. Angiography revealed patent iliac artery with a kink proximally. There is no pressure gradient across the kink. The short 6-Kenyan sheath was switched out for a 25 cm 6-Kenyan Arrow sheath with the sheath tip into the abdominal aorta for angiography and percutaneous intervention. JL4, JR4 diagnostic catheters were used for selective angiography of the nez perce vessels. JR4 diagnostic catheter was used for selective angiography of the bypass grafts. A 6-Kenyan pigtail catheter was advanced in the left [...] additional 162 mg of aspirin in the mineral ore processing labourer. She was given Aggrastat bolus. Patient received [...] on filedocumented in this encounter Care Teams Purchasing Analyst Relationship Specialty Start Date End Date Jay Howell MD [address] [place] [phone] PCP - General Emergency Medicine 11/12/23 documented as of this encounter
--- OUTSIDE RECORDS SUMMARY | 2025-07-24 06:56 | XMS_ITS | Clinical Summary ---
Author Organization [employer] [facility] Address [address] [place] [address] Care Team Providers Care Real Estate Developer Name Role Phone Jay Howell MD Primary Care Provider [phone] Allergies Active Allergy Reactions Criticality Noted Date Comments Morphine And Codeine Other (See Comments),Unknown - Low Severity,Unknown (See Comments) Low 2014 Listed per [facility] MAR. Nitrofurantoin Unknown - Low Severity [...] 03/23/2024 History of pulmonary embolus (PE) 03/14/2024 longterm current use of anticoagulant Fatigue 03/14/2024 Atopic [...] of chest/PE protocol. Patient was sent to [facility] radiology department for CT scan today. [...] new referral to a cardiovascular surgeon at [facility]. She reports she has seen Dr. Mickey Alcantara in the past. Coronary artery disease invo lving coronary bypass graft of [place] tribe heart without angina pectoris 04/28/2023 Assessment & Plan (09/30/2023 4:12 PM EST): She is on Statin, BB,CCB, ARB, ASA, Ranexa, and Warfarin. Continue current medication. Assessment & Plan (05/02/2023 5:03 PM EDT): She has a known history of coronary artery disease. She has denied any chest pain. Her last heart catheterization was November 25, 2022 at [facility] in [place] showing: -last [facility] 11/25/2022- A. 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
--- OUTSIDE RECORDS SUMMARY | 2025-07-24 06:56 | XMS_ITS | Encounter Summary ---
Author Organization [employer] ([place], [place], [place], [place]) Address [address] [place] [address] Care Team Providers Care Engineering Technology Instructor Name Role Phone Jay Howell MD Primary Care Provider [phone] Encounter Details Date Type Department Care Team (Late st Contact Info) Description 12/21/2018 Transcribed Document [facility] [place] Family Medicine [address] [place] [address] ProviderJessie MD [address] [place] [address] Social History Tobacco Use Types Packs/Day Years Used Date Smoking Tobacco: Never Assessed Comments Unknown Sex and Gender Information Value Date Recorded Sex Assigned at Not on file Legal Sex Female 7:30 PM CDT Gender Identity Not on file Sexual Orientation Not on file documented as of this encounter Miscellaneous Notes * Cerner Conversion Note - Historical ProviderMD - 12/21/2018 9:20 AM OPERATING ENGINEER Spiritual Care Short Form Entered On: 12/21/2018 22:31 EST Performed On: 12/21/2018 9:20 EST by JAZZ PINA Chaplain-Non Cert General Information, Spiritual Care Spiritual Care Referred by : Food Service Director initiated Reason for Visit : Initial Ministry Provided to : Patient Intervention/Comment/Summary Points : Visited conducted by Spiritual Supervisor Publications shilo Velasquez Judaism Preference : Evangelical JAZZ PINA Chaplain-Magalis Del Castillo - 12/21/2018 22:31 EST documented in this encounter Plan of Treatment Not on file documented as of this encounter Visit Diagnoses Not on filedocumented in this encounter Care Teams Engineering Technology Instructor Relationship Specialty Start Date End Date Jay Howell MD [address] [place] [phone] PCP - General Emergency Medicine 11/12/23 documented as of this encounter
--- OUTSIDE RECORDS SUMMARY | 2025-07-24 06:56 | XMS_ITS | Encounter Summary ---
Author Organization [employer] ([place], [place], [place], [place]) Address [address] [place] [address] Care Team Providers Care Rubble Placer Name Role Phone Jay Howell MD Primary Care Provider [phone] Encounter Details Date Type Department Care Team (Late st Contact Info) Description 08/30/2020 Transcribed Document [facility] [place] Family Medicine [address] [place] [address] ProviderJessie MD [address] [place] [address] Social History Tobacco Use Types Packs/Day Years Used Date Smoking Tobacco: Never Assessed Comments Unknown Sex and Gender Information Value Date Recorded Sex Assigned at Not on file Legal Sex Female 7:30 PM CDT Gender Identity Not on file Sexual Orientation Not on file documented as of this encounter Miscellaneous Notes * Cerner Conversion Note - Jessie Yuen MD - 08/30/2020 8:14 AM GOLD FRAME ASSEMBLER Patient: SKYLER MONTOYA Age: 79 years Sex: [...] mg, 6 mL, 112 mL/Hr, IV Piggyback, [id number] DuoNeb 0.5 mg-2.5 mg/3 mL inhalation solution: [...] Tab, Oral, Daily, 30 Tab, 0 Refill(s) [place] 7.5 mg-325 mg oral tablet: 1 Tab, [...] mL 300 mg 6 mL, IV Piggyback, [id number] dorzolamide 2% ophth soln 10 mL 1 [...] Confirmed Coronary artery disease / SNOMED CT 7716708332 / Confirmed Stented coronary artery / SNOMED CT 1950234623 / Confirmed High blood pressure / SNOMED CT 14375833 / Confirmed Hyperlipidemia / SNOMED CT 48822413 / Confirmed COPD / SNOMED CT 30904938 / Confirmed GERD - Gastro-esophageal reflux disease / SNOMED CT 1157737759 / Confirmed 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 / Confirmed Arthritis / SNOMED CT 6954980 / Confirmed Diabetes mellitus / SNOMED CT 128485858 / Confirmed Emphysema / SNOMED CT 202667407 / Confirmed Apnea, sleep / SNOMED CT 718909108 / Confirmed Hx of pulmonary embolus / SNOMED CT 269246844 / Confirmed Chronic anticoagulation / SNOMED CT 076886419 / Confirmed Atrial fibrillation with RVR / SNOMED CT 9796095976 / Confirmed Chest pain / SNOMED CT 88248533 / Complaint of History of obstructive sleep apnea / IMO 31329221 / Confirmed, Active Problems (20) Apnea, sleep [...] days based on INR Electronically signed by [facility] Conversion Belt Loop Cutter Cerner at 02/04/2023 2:10 PM CDT documented in this encounter Plan of Treatment Not on file documented as of this encounter Visit Diagnoses Not on filedocumented in this encounter Care Teams Rubble Placer Relationship Specialty Start Date End Date Jay Howell MD [address] [place] [phone] PCP - General Emergency Medicine 11/12/23 documented as of this encounter
--- OUTSIDE RECORDS SUMMARY | 2025-07-24 06:56 | XMS_ITS | Encounter Summary ---
Author Organization [employer] ([place], [place], [place], [place]) Address [address] [place] [address] Care Team Providers Care Assembly Machine Tool Setter Name Role Phone Jay Howell MD Primary Care Provider [phone] Encounter Details Date Type Department Care Team (Late st Contact Info) Description 08/29/2020 Transcribed Document [facility] [place] [address] ProviderJessie MD [address] [place] [address] Social History Tobacco Use Types Packs/Day Years Used Date Smoking Tobacco: Never Assessed Comments Unknown Sex and Gender Information Value Date Recorded Sex Assigned at Not on file Legal Sex Female 7:30 PM CDT Gender Identity Not on file Sexual Orientation Not on file documented as of this encounter Miscellaneous Notes * Cerner Conversion Note - Jessie Yuen MD - 08/29/2020 2:44 PM LAMINATING MACHINE OPERATOR HELPER Final Discharge Planning Entered On: 08/29/2020 14:44 EST Performed On: 08/29/2020 14:44 EST by KAVITA PELLETIER RN-Meat Stuffer Final Discharge Planning Discharge Arrangements : Patient Post-Acute Information Patient Name: SKYLER MONTOYA Gender: Female : 38 Age: 79 Years No Post-Acute Placement(s) Listed No Post-Acute Service(s) Listed No [place] Referral(s) Listed Patient Offered Choice/Affiliations Explained : Yes Important Medicare Message Reviewed With : Patient Important Medicare Message Reviewed D/T : 08/29/2020 9:00 EST KAVITA PELLETIER RN-Meat Stuffer - 08/29/2020 14:44 EST Electronically signed by Interface, [facility] Conversion Emergency Room Registered Nurse Cerner at 02/04/2023 1:55 PM CDT documented in this encounter Plan of Treatment Not on file documented as of this encounter Visit Diagnoses Not on filedocumented in this encounter Care Teams Assembly Machine Tool Setter Relationship Specialty Start Date End Date Jay Howell MD [address] [place] [phone] PCP - General Emergency Medicine 11/12/23 documented as of this encounter
--- OUTSIDE RECORDS SUMMARY | 2025-07-24 06:56 | XMS_ITS | Encounter Summary ---
Author Organization [employer] ([place], [place], [place], [place]) Address [address] [place] [address] Care Team Providers Care Accounts Receivable Accountant Name Role Phone Jay Howell MD Primary Care Provider [phone] Encounter Details Date Type Department Care Team (Late st Contact Info) Description 12/20/2018 Transcribed Document [facility] [address] [place] [address] ProviderJessie MD [address] [place] [address] Social History Tobacco Use Types Packs/Day Years Used Date Smoking Tobacco: Never Assessed Comments Unknown Sex and Gender Information Value Date Recorded Sex Assigned at Not on file Legal Sex Female 7:30 PM CDT Gender Identity Not on file Sexual Orientation Not on file documented as of this encounter Miscellaneous Notes * Cerner Conversion Note - Historical ProviderMD - 12/20/2018 11:57 AM CIVIL LAWYER Pre Procedure Adult Entered On: 12/20/2018 12:01 EST Performed On: 12/20/2018 11:57 EST by VANCE BELTRAN RN Height and Weight, Clinical Dosing Height Source : Stated Height Entry Format : Gem Height, Feet : 5 ft(Converted to: 152 cm, 60 Inch) Height, Inches : 3 Inch(Converted to: 0 ft 3 Inch, 7.62 cm) Clinical Height : 160.02 cm Weight Source : Standing scale Weight Entry Format : Gem Clinical Dosing Weight : 71.82 kg Weight, Pounds : 158 lb Body Surface Area (BSA) : 1.75 m2 Body Mass Index : 28 kg/m2 (HI) [place] Body Weight : 52 kg VANCE BELTRAN [...] Info Preferred Name : ilsa Support Person/Patient Fishery Division Chief : Deanna Support Person/Pt Rep Name : Willard Contact Password : Marvin Support Person/Pt Rep Contact Information : [phone] Want Family/Rep/Phys Notified of Admit : No Emergency Contact #1 : na Emergency Contact #1 Phone Number : [facility] Emergency Contact #1 Relationship : na Emergency Contact #2 : na Emergency Contact #2 Phone Number : [facility] Emergency Contact #2 Relationship : na Primary Language : Senegalese Preferred Communication Mode : Verbal Communication Barrier [...] Scale Risk Level : 0-24 Low Risk Gilbert Fall Interventions : Bed in low position, Call device within reach, Non-slip footwear, Wheels locked VANCE BELTRAN RN - 12/20/2018 11:57 EST Valuables and Belongings Valuables and Belongings : Clothing Clothing : Common streetwear Clothing Disposition : Bedside VANCE BELTRAN RN - 12/20/2018 11:57 EST Electronically signed by Sivan [facility] Conversion Seconds Grader Cerner at 02/04/2023 2:07 PM CDT documented in this encounter Plan of Treatment Not on file documented as of this encounter Visit Diagnoses Not on filedocumented in this encounter Care Teams Accounts Receivable Accountant Relationship Specialty Start Date End Date Jay Howell MD [address] [place] [phone] PCP - General Emergency Medicine 11/12/23 documented as of this encounter
--- OUTSIDE RECORDS SUMMARY | 2025-07-24 06:56 | XMS_ITS | Encounter Summary ---
Author Organization [employer] ([place], [place], [place], [place]) Address [address] [place] [address] Care Team Providers Care Therapeutic Program Worker Name Role Phone Jay Howell MD Primary Care Provider [phone] Encounter Details Date Type Department Care Team (Late st Contact Info) Description 12/21/2018 Transcribed Document [facility] Family Medicine [facility] [place] [address] ProviderJessie MD [address] [place] [id number] Social History Tobacco Use Types Packs/Day Years Used Date Smoking Tobacco: Never Assessed Comments Unknown Sex and Gender Information Value Date Recorded Sex Assigned at Not on file Legal Sex Female 7:30 PM CDT Gender Identity Not on file Sexual Orientation Not on file documented as of this encounter Miscellaneous Notes * Cerner Conversion Note - Jessie Yuen MD - 12/21/2018 11:48 AM 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 [address] , [place], [place] [id number] Patient Copy Patient Information: Name: SKYLER MONTOYA Current Date: 12/21/2018 11:48:11 : 1940 Patient Address: [address] [place] [id number] Patient Attending Physician: FREDY YAÑEZ MD-CAR Primary Care Provider: TARA CHEN (REF), -MED Primary Care Provider Discharge Diagnosis: CAD (coronary artery disease); DM (diabetes mellitus); Exertional angina; HLD (hyperlipidemia); HTN (hypertension); Hx of CABG; DANTE (obstructive sleep apnea); Paroxysmal A-fib Weight on Admission: 158 lb, 0 oz Comment: Follow-up Instructions: With: Address: When: [facility] [address], [place] [address] Business (1) In 1 month 01/21/2019 With: Address: When: [facility] [address], [address] [place], [place] [id number] Business (1) Within 2 to 5 weeks [...] What foods can I eat? GrainsBreads, including Syriac, white, jie, wheat, raisin, rye, oatmeal, and Georgian. Tortillas that are neither fried nor made with lard or trans fat. Low-fat rolls, including hotdog and hamburger buns and Polish muffins. Biscuits. Muffins. Waffles. Pancakes. Light popcorn. Whole-grain cereals. Flatbread. Leburn toast. Pretzels. Breadsticks. Rusks. Low-fat snacks. Low-fat [...] cottage cheese. Whole-milk cheeses, including blue (fredo), Duplin Armand, Brie, Nate, Burundian, Havarti, Cymro, cheddar, Camembert, and [place]. Whole or 2% milk that is liquid, [...] that has suet, meat fat, or shortening. [place] butter, hydrogenated oils, palm oil, coconut oil, [...] 12/25/2012 Document Revised: 03/10/2017 Document Reviewed: 02/04/2015 Ke[employer]on Interactive Patient Education ? 2017 [employer]. Groin Site Care Refer to this [...] Document Reviewed: 11/05/2011 ExitCare? Patient Information ?2013 Checkout10. Angiogram An angiogram, also called angiography, is [...] including vitamins, herbs, eye drops, creams, and guet-moz-rrgqwzb medicines. ??? Any problems you or family [...] 03/06/2014 Elsevier Interactive Patient Education ? 2017 [employer] Inc. Medication Leaflets: valsartan (elin LILY foster) [...] valsartan; ?? if you are on a bon-chzw-mlii; ?? if you are dehydrated; or ?? [...] may report side effects to FDA at 3-163-BIP-3253. What other drugs will affect valsartan? Tell [...] may interact with valsartan, including prescription and ngxd-eru-ymblipv medicines, vitamins, and herbal products. Not all [...] to ensure that the information provided by [employer]anna. ('[employer]') is accurate, up-to-date, and complete, but no guarantee is made to that effect. Drug information contained herein may be time sensitive. [facility] information has been compiled for use by healthcare practitioners and consumers in the [place] and therefore [facility] [employer] does not warrant that uses outside of the [place] are appropriate, unless specifically indicated otherwise. [employer] System's drug information does not endorse drugs, diagnose patients or recommend therapy. [employer] System's drug information is an informational resource designed [...] effective or appropriate for any given patient. [facility] does not assume any responsibility for any aspect of healthcare administered with the aid of information [facility] provides. The information contained herein is not intended to cover all possible uses, directions, precautions, warnings, drug interactions, allergic reactions, or adverse effects. If you have questions about the drugs you are taking, check with your doctor, nurse or pharmacist. Copyright 1536-6431 [facility]. Version: 16.05. Revision Date: 09/08/2016. hydralazine (bob [...] may report side effects to FDA at 1-175-OMS-4676. What other drugs will affect hydralazine? Tell your doctor about all your current medicines and any you start or stop using, especially: ? diazoxide (an injectable blood pressure medication); or ?? an MAO inhibitor--isocarboxazid, linezolid, methylene blue injection, phenelzine, rasagiline, selegiline, tranylcypromine, and others. This list is not complete. Other drugs may interact with hydralazine, including prescription and dqfo-nxt-ovodgcr medicines, vitamins, and herbal products. Not all [...] to ensure that the information provided by [employer]. ('[employer]') is accurate, up-to-date, and complete, but no guarantee is made to that effect. Drug information contained herein may be time sensitive. [employer] information has been compiled for use by healthcare practitioners and consumers in the [place] and therefore [employer] does not warrant that uses outside of the [place] are appropriate, unless specifically indicated otherwise. [employer]'s drug information does not endorse drugs, diagnose patients or recommend therapy. [employer] drug information is an informational resource designed [...] effective or appropriate for any given patient. [employer] does not assume any responsibility for any aspect of healthcare administered with the aid of information [employer] provides. The information contained herein is not intended to cover all possible uses, directions, precautions, warnings, drug interactions, allergic reactions, or adverse effects. If you have questions about the drugs you are taking, check with your doctor, nurse or pharmacist. Copyright 6204-8065 Panna. Version: 5.01. Revision Date: 10/26/2017. amlodipine (am [...] may report side effects to FDA at 0-655-SKV-7244. What other drugs will affect amlodipine? Tell your doctor about all your current medicines and any you start or stop using, especially: ? nitroglycerin; ?? simvastatin (Zocor, Simcor, Vytorin); or ?? any other heart or blood pressure medications. This list is not complete. Other drugs may interact with amlodipine, including prescription and cekm-oyq-usohcgu medicines, vitamins, and herbal products. Not all [...] to ensure that the information provided by Panna. ('Multum') is accurate, up-to-date, and complete, but no guarantee is made to that effect. Drug information contained herein may be time sensitive. [employer] information has been compiled for use by healthcare practitioners and consumers in the [place] and therefore [employer] does not warrant that uses outside of the [place] are appropriate, unless specifically indicated otherwise. [employer] drug information does not endorse drugs, diagnose patients or recommend therapy. [employer] drug information is an informational resource designed [...] effective or appropriate for any given patient. [employer] does not assume any responsibility for any aspect of healthcare administered with the aid of information [employer] provides. The information contained herein is not intended to cover all possible uses, directions, precautions, warnings, drug interactions, allergic reactions, or adverse effects. If you have questions about the drugs you are taking, check with your doctor, nurse or pharmacist. Copyright 2320-9221 Panna. Version: 14.. Revision Date: 01/24/2017. clopidogrel (kloe [...] may report side effects to FDA at 7-199-NCP-5011. What other drugs will affect clopidogrel? Certain other medicines may increase your risk of bleeding, including aspirin. Avoid taking aspirin unless your doctor tells you to. Tell your doctor about all your other medicines, especially: ? any other medicines to treat or prevent blood clots; ?? a stomach acid pump service supervisor such as omeprazole, Nexium, or Prilosec; ?? an antidepressant; ?? an opioid medication; ?? a blood thinner--warfarin, Coumadin, Jantoven; or ?? NSAIDs (nonsteroidal anti-inflammatory drugs)--ibuprofen (Advil, Motrin), naproxen (Aleve), celecoxib, diclofenac, indomethacin, meloxicam, and others. This list is not complete. Other drugs may affect clopidogrel, including prescription and dbzt-man-qrcrhix medicines, vitamins, and herbal products. Not all [...] to ensure that the information provided by [employer]. ('Multum') is accurate, up-to-date, and complete, but no guarantee is made to that effect. Drug information contained herein may be time sensitive. [employer] System information has been compiled for use by healthcare practitioners and consumers in the [place] and therefore [employer] does not warrant that uses outside of the [place] are appropriate, unless specifically indicated otherwise. IKO System's drug information does not endorse drugs, diagnose patients or recommend therapy. [employer] drug information is an informational resource designed [...] effective or appropriate for any given patient. [employer] does not assume any responsibility for any aspect of healthcare administered with the aid of information [employer] provides. The information contained herein is not intended to cover all possible uses, directions, precautions, warnings, drug interactions, allergic reactions, or adverse effects. If you have questions about the drugs you are taking, check with your doctor, nurse or pharmacist. Copyright 8140-3526 Panna. Version: 15.01. Revision Date: 08/07/2018. ranolazine (ra [...] following drugs: ? clarithromycin; ?? nefazodone; ?? [place]'s wort; ?? antifungal medicine--itraconazole, ketoconazole; ?? HIV [...] may report side effects to FDA at 6-252-TEQ-8867. What other drugs will affect ranolazine? Many [...] interact with ranolazine. This includes prescription and klxr-qlx-rewyexx medicines, vitamins, and herbal products. Give a [...] to ensure that the information provided by Panna. ('Multum') is accurate, up-to-date, and complete, but no guarantee is made to that effect. Drug information contained herein may be time sensitive. IKO System information has been compiled for use by healthcare practitioners and consumers in the [place] and therefore I[employer] System does not warrant that uses outside of the [place] are appropriate, unless specifically indicated otherwise. IKO System's drug information does not endorse drugs, diagnose patients or recommend therapy. [employer] drug information is an informational resource designed [...] effective or appropriate for any given patient. [employer] does not assume any responsibility for any aspect of healthcare administered with the aid of information I[employer] System provides. The information contained herein is not intended to cover all possible uses, directions, precautions, warnings, drug interactions, allergic reactions, or adverse effects. If you have questions about the drugs you are taking, check with your doctor, nurse or pharmacist. Copyright 1293-0344 Panna. Version: 11.. Revision Date: 12/04/2015. CIGARETTE SMOKING: The facts are clear, cigarette smoking will shorten your life. Smoking can cause many illnesses along the way. As a healthcare provider, we recommend that you stop smoking. Assistance with quitting is available by contacting 7-405-YKLS-NOW. This is a free resource providing counseling, [...] Be sure to sign up for the [employer] patient portal, which gives you 09/05 access to your medical information ??? including these discharge instructions ??? using your computer, smartphone, or tablet. Just go to VivaSmart to get started. Questions? Call . [facility] would like to thank you for allowing us to assist you with your healthcare needs. MICHELE Skaggs JUDY D, (or outbound sales representative) have received the above patient education materials/instructions and have verbalized understanding: Patient Signature _ Date/Time Patient Bsa Officer Signature (if needed) Date/Time Clinician/Hospital Bsa Officer Signature (if needed) Date/Time Electronically signed by [facility], [facility] Conversion Telex Operator Cerner at 02/04/2023 1:58 PM CDT documented in this encounter Plan of Treatment Not on file documented as of this encounter Visit Diagnoses Not on filedocumented in this encounter Care Teams Therapeutic Program Worker Relationship Specialty Start Date End Date Jay Howell MD [address] [place] [phone] PCP - General Emergency Medicine 11/12/23 documented as of this encounter
--- OUTSIDE RECORDS SUMMARY | 2025-07-24 06:56 | XMS_ITS | Encounter Summary ---
Author Organization [employer] ([place], [place], [place], [place]) Address [address] [place] [address] Care Team Providers Care Program Eligibility Specialist Name Role Phone Jay Howell MD Primary Care Provider [phone] Encounter Details Date Type Department Care Team (Late st Contact Info) Description 02/13/2021 Transcribed Document [facility] Family Medicine [address] [place] [address] ProviderJessie MD [address] [place], [place] [address] Social History Tobacco Use Types Packs/Day Years [...] counseling. ??? Working with a diet and director of food and nutrition services (dietitian) to help create a food plan [...] for some people. General instructions ??? Take accv-cbx-xfpwjsk and prescription medicines and supplements only as [...] provider. Document Revised: 09/26/2018 Document Reviewed: 09/26/2018 TableNOW Patient Education ? 2020 Venturocket. Segura's Esophagus Segura's esophagus occurs when the [...] Tomatoes and foods made with tomatoes. ? Captain Cook or spicy foods. ? Chocolate and peppermint. ??? Do not drink alcohol. General instructions ??? Take ubpe-nnk-mlvojqo and prescription medicines only as told by [...] provider. Document Revised: 01/29/2019 Document Reviewed: 01/29/2019 TableNOW Patient Education ? 2020 [employer]. ESOPHAGOGASTRODUODENOSCOPY Care After Read the instructions outlined [...] eating solid foods. General instructions ??? Take mnwx-qkl-rxtorul and prescription medicines only as told by [...] provider. Document Revised: 01/01/2019 Document Reviewed: 01/23/2017 TableNOW Patient Education ? 2020 TableNOW Inc. Gastritis, Adult Gastritis is inflammation of [...] medicines. These include steroids, antibiotics, and some xenm-irx-fodxanc medicines, such as aspirin or ibuprofen. ??? [...] these instructions at home: Medicines ??? Take ywoj-wam-dpgsywd and prescription medicines only as told by [...] Reviewed: 02/20/2019 Elsevier Patient Education ? 2020 TableNOW Inc. Colonoscopy, Adult A colonoscopy is a [...] including vitamins, herbs, eye drops, creams, and vfeb-yca-kdvkifi medicines. ??? Any problems you or family [...] tells you to take them. ??? Taking gzyk-dqb-ublfsxm medicines, vitamins, herbs, and supplements. General instructions [...] provider. Document Revised: 04/25/2020 Document Reviewed: 04/25/2020 TableNOW Patient Education ? 2020 TableNOW Inc. Colon Polyps Polyps are tissue growths [...] provider. Document Revised: 01/18/2019 Document Reviewed: 01/18/2019 TableNOW Patient Education ? 2020 Venturocket. documented in this encounter Plan of Treatment Not on file documented as of this encounter Visit Diagnoses Not on filedocumented in this encounter Care Teams Program Eligibility Specialist Relationship Specialty Start Date End Date Jay Howell MD [address] [place] [phone] PCP - General Emergency Medicine 11/12/23 documented as of this encounter
--- OUTSIDE RECORDS SUMMARY | 2025-07-24 06:56 | XMS_ITS | Encounter Summary ---
Author Organization [employer] ([place], [place], [place], [place]) Address [address] [place] [address] Care Team Providers Care Shellfish Farming Supervisor Name Role Phone Jay Howell MD Primary Care Provider [phone] Encounter Details Date Type Department Care Team (Late st Contact Info) Description 12/20/2018 Transcribed Document [facility] [place] [address] [place] [address] ProviderJessie MD [address] [place] [address] Social History Tobacco Use Types Packs/Day Years Used Date Smoking Tobacco: Never Assessed Comments Unknown Sex and Gender Information Value Date Recorded Sex Assigned at Not on file Legal Sex Female 7:30 PM CDT Gender Identity Not on file Sexual Orientation Not on file documented as of this encounter Miscellaneous Notes * Cerner Conversion Note - Historical ProviderMD - 12/20/2018 3:[address] WORKER DATE OF PROCEDURE: LEFT HEART CATHETERIZATION, GRAFT ANGIOGRAPHY, ILIAC ARTERY ANGIOGRAPHY, PERCUTANEOUS INTERVENTION REPORT INDICATION: Lifestyle limiting exertional angina. REFERRING PHYSICIAN: Dr. Adry Dumas and Dr. Avtar Moeller. PROCEDURE: Standard left heart catheterization. TECHNIQUE: A 5/6-Turkish sheath placed in the right femoral artery. Right iliac artery angiography was performed using a JR4 diagnostic catheter due to difficulty in advancing safety J-wire across the proximal right common iliac artery. Angiography revealed patent iliac artery with a kink proximally. There is no pressure gradient across the kink. The short 6-Turkish sheath was switched out for a 25 cm 6-Turkish Arrow sheath with the sheath tip into the abdominal aorta for angiography and percutaneous intervention. JL4, JR4 diagnostic catheters were used for selective angiography of the rosebud vessels. JR4 diagnostic catheter was used for selective angiography of the bypass grafts. A 6-Turkish pigtail catheter was advanced in the left [...] additional 162 mg of aspirin in the agriculture laborer. She was given Aggrastat bolus. Patient received intracoronary nitroglycerin to optimize coronary vessel sizing. Wood Pacheco M.D. Dict: 12/20/2018 15:20:17 Trans: 12/20/2018 18:55:03 CC1: Wood Pacheco M.D. CC2: Dr. Adry Dumas CC3: Dr. Avtar Moeller Electronically signed by Gayle Finnegan Conversion Veterinary Surgery Technician Cerner at 02/04/2023 2:13 PM CDT documented in this encounter Plan of Treatment Not on file documented as of this encounter Visit Diagnoses Not on filedocumented in this encounter Care Teams Shellfish Farming Supervisor Relationship Specialty Start Date End Date Jay Howell MD [address] [place] [phone] PCP - General Emergency Medicine 11/12/23 documented as of this encounter
--- OUTSIDE RECORDS SUMMARY | 2025-07-24 06:56 | XMS_ITS | Encounter Summary ---
Author Organization [employer] ([place], [place], [place], [place]) Address [address] [place] [address] Care Team Providers Care Fire Protection Equipment Technician Name Role Phone Jay Howell MD Primary Care Provider [phone] Encounter Details Date Type Department Care Team (Late st Contact Info) Description 12/20/2018 Transcribed Document [facility] Family Medicine [address] [place] [address] ProviderJessie MD [address] [place] [address] Social History Tobacco Use Types Packs/Day Years Used Date Smoking Tobacco: Never Assessed Comments Unknown Sex and Gender Information Value Date Recorded Sex Assigned at Not on file Legal Sex Female 7:30 PM CDT Gender Identity Not on file Sexual Orientation Not on file documented as of this encounter Miscellaneous Notes * Cerner Conversion Note - Historical ProviderMD - 12/20/2018 1:13 PM APPLICATION SUPPORT ENGINEER Advance Directive Entered On: 12/20/2018 13:35 EST Performed On: 12/20/2018 13:13 EST by ARTHUR HONEYCUTT Advance Directive Patient has Advance Directive *Q : No, patient requests assist formulating Advance Directive Patient Given Information about AD : Yes Advance Directive Comment : Provided advance directive info. ARTHUR HONEYCUTT - 12/20/2018 13:35 EST Electronically signed by Sivan [facility] Conversion Car Mover Cerner at 02/04/2023 1:55 PM CDT documented in this encounter Plan of Treatment Not on file documented as of this encounter Visit Diagnoses Not on filedocumented in this encounter Care Teams Fire Protection Equipment Technician Relationship Specialty Start Date End Date Jay Howell MD [address] [place] [phone] PCP - General Emergency Medicine 11/12/23 documented as of this encounter
--- OUTSIDE RECORDS SUMMARY | 2025-07-24 06:56 | XMS_ITS | Encounter Summary ---
Author Organization [employer] ([place], [place], [place], [place]) Address [address] [place] [address] Care Team Providers Care Decommissioning Well Site Manager Name Role Phone Jay Howell MD Primary Care Provider [phone] Encounter Details Date Type Department Care Team (Late st Contact Info) Description 12/20/2018 Transcribed Document [facility] Family Medicine [address] [place] [address] ProviderJessie MD [address] [place] [address] Social History Tobacco Use Types Packs/Day Years Used Date Smoking Tobacco: Never Assessed Comments Unknown Sex and Gender Information Value Date Recorded Sex Assigned at Not on file Legal Sex Female 7:30 PM CDT Gender Identity Not on file Sexual Orientation Not on file documented as of this encounter Miscellaneous Notes * Cerner Conversion Note - Jessie Yuen MD - 12/20/2018 8:00 AM METAL CONTAINER MAKER Patient: SKYLER MONTOYA Age: 77 years Sex: Female : 1940 Associated Diagnoses: None Author: FREDY PACHECO MD-CAR Basic Information PCP: Dr. Moeller Physical Design Engineer: Stephania Garcia MD Chief Complaint Pre-op clearance; shoulder surgery with Dr. Prieto Watters at [facility] Stress test 12/06/18; abnormal History of Present [...] All Problems Chest pain / SNOMED CT 22623733 / Complaint of Cataract / Patient Care / Confirmed Glaucoma / Patient Care / Confirmed Coronary artery disease / SNOMED CT 4446531603 / Confirmed Stented coronary artery / SNOMED CT 0946668317 / Confirmed High blood pressure / SNOMED CT 15941416 / Confirmed Hyperlipidemia / SNOMED CT 71179534 / Confirmed Clotting disorder / SNOMED CT 814355459 / Confirmed COPD / SNOMED CT 08248746 / Confirmed GERD - Gastro-esophageal reflux disease / SNOMED CT 4705302835 / Confirmed Multiple renal cysts / SNOMED CT 856977679 / Confirmed UTI - Urinary tract infection / SNOMED CT 9686689679 / Confirmed Arthritis / SNOMED CT 2836844 / Confirmed Diabetes mellitus / SNOMED CT 854681033 / Confirmed Blood clot / SNOMED CT 284377519 / Confirmed Emphysema / SNOMED CT 356589985 / Confirmed Apnea, sleep / SNOMED CT 263659129 / Confirmed Hx of pulmonary embolus / SNOMED CT 423357008 / Confirmed Chronic anticoagulation / SNOMED CT 846140831 / Confirmed Atrial fibrillation with RVR / SNOMED CT 1971012061 / Confirmed History of obstructive sleep apnea / IMO 39375054 / Confirmed Histories No education data available. [...] History: Active Cataract Glaucoma Coronary artery disease (5634812550) Stented coronary artery (0731322942) High blood pressure (92492454) Hyperlipidemia (47677111) COPD (80710862) GERD - Gastro-esophageal reflux disease (7595635501) Multiple renal cysts (367903887) UTI - Urinary tract infection (9538143376) Arthritis (6456295) Diabetes mellitus (079297637) Emphysema (558120638) Apnea, sleep (393475110) Hx of pulmonary embolus (251293604) Chronic anticoagulation (691700932) Atrial fibrillation with RVR (8988319686) Family History: Cardiomyopathy Child Stroke Brother Heart attack Brother Sister Leukemia Child Cancer Father Mother Sister Coronary heart disease Child Procedure history: femur repair. Appendectomy (502852268). uterine suspension. Hysterectomy (893033632). back surgury. Coronary artery bypass graft (268160828). Cholecystectomy (36374843). Hip replacement (1308574189). cataract surgury. Social History Social & Psychosocial [...] motion, Normal strength. Integumentary: Warm, Dry, [place]. Neurologic: Alert, Oriented. Psychiatric: Cooperative. Review / [...] days post cath. Electronically signed by Sivan, [facility] Conversion Batch Heat Treat Operator Cerner at 02/04/2023 2:21 PM CDT documented in this encounter Plan of Treatment Not on file documented as of this encounter Visit Diagnoses Not on filedocumented in this encounter Care Teams Decommissioning Well Site Manager Relationship Specialty Start Date End Date Jay Howell MD [address] [place] [phone] PCP - General Emergency Medicine 11/12/23 documented as of this encounter
--- OUTSIDE RECORDS SUMMARY | 2025-07-24 06:56 | XMS_ITS | Encounter Summary ---
Author Organization [employer] ([place], [place], [place], [place]) Address [address] [place] [address] Care Team Providers Care Production Specialist Name Role Phone Jay Howell MD Primary Care Provider [phone] Encounter Details Date Type Department Care Team (Late st Contact Info) Description 12/14/2018 Transcribed Document [facility] [place] [address] [place] [address] ProviderJessie MD [address] [place], [place] [address] Social History Tobacco Use Types Packs/Day Years Used Date Smoking Tobacco: Never Assessed Comments Unknown Sex and Gender Information Value Date Recorded Sex Assigned at Not on file Legal Sex Female 7:30 PM CDT Gender Identity Not on file Sexual Orientation Not on file documented as of this encounter Miscellaneous Notes * Cerner Conversion Note - Historical ProviderMD - 12/14/2018 4:49 PM MOTORBIKE COURIER CR Chest 2 Vws Ordered: 12/12/2018 Auth (Verified) Reason for Exam: cp 12/13/2018 11:39 12/14/2018 16:49 (LESTER PILLAI PA) Reviewed by Provider, No further action required X1 12/14/2018 16:47 (FLORENTIN CAMARGO) No further action required Electronically signed by Sivan [facility] Conversion Electrical Installation Supervisor Cerner at 02/04/2023 2:04 PM CDT documented in this encounter Plan of Treatment Not on file documented as of this encounter Visit Diagnoses Not on filedocumented in this encounter Care Teams Production Specialist Relationship Specialty Start Date End Date Jay Howell MD [address] [place] [phone] PCP - General Emergency Medicine 11/12/23 documented as of this encounter
--- OUTSIDE RECORDS SUMMARY | 2025-07-24 06:56 | XMS_ITS | Encounter Summary ---
Author Organization [employer] ([place], [place], [place], [place]) Address [address] [place] [address] Care Team Providers Care Station Supervisor Name Role Phone Jay Howell MD Primary Care Provider [phone] Encounter Details Date Type Department Care Team (Late st Contact Info) Description 12/21/2018 Transcribed Document [facility] Family [place] [facility] [place] [address] ProviderJessie MD [address] [place] [address] Social History Tobacco Use Types Packs/Day Years Used Date Smoking Tobacco: Never Assessed Comments Unknown Sex and Gender Information Value Date Recorded Sex Assigned at Not on file Legal Sex Female 7:30 PM CDT Gender Identity Not on file Sexual Orientation Not on file documented as of this encounter Miscellaneous Notes * Cerner Conversion Note - Jessie ProviderMD - 12/21/2018 12:17 PM VALUATION MANAGER [address] , [place], [place] [id number] Patient Copy Patient Information: Name: SKYLER MONTOYA Current Date: 12/21/2018 12:17:17 : 1940 Patient Address: [address] [place] [phone] Patient Attending Physician: FREDY YAÑEZ MD-CAR Primary Care Provider: TARA CHEN (REF), -MED Primary Care Provider Discharge Diagnosis: CAD (coronary artery disease); DM (diabetes mellitus); Exertional angina; HLD (hyperlipidemia); HTN (hypertension); Hx of CABG; DANTE (obstructive sleep apnea); Paroxysmal A-fib Weight on Admission: 158 lb, 0 oz Comment: Follow-up Instructions: With: Address: When: [facility] [address] [place] [address] Business (1) In 1 month 01/21/2019 With: Address: When: [facility] [address], [address] [place], [place] [id number] Business (1) Within 2 to 5 weeks [...] What foods can I eat? GrainsBreads, including Hebrew, white, jie, wheat, raisin, rye, oatmeal, and Azeri. Tortillas that are neither fried nor made with lard or trans fat. Low-fat rolls, including hotdog and hamburger buns and Danish muffins. Biscuits. Muffins. Waffles. Pancakes. Light popcorn. Whole-grain cereals. Flatbread. [place] toast. Pretzels. Breadsticks. Rusks. Low-fat snacks. Low-fat [...] cottage cheese. Whole-milk cheeses, including blue (fredo), Burke Armand, Brie, Nate, Icelandic, Havarti, Niuean, cheddar, Camembert, and Pomerene. Whole or 2% milk that is liquid, [...] that has suet, meat fat, or shortening. [place] butter, hydrogenated oils, palm oil, coconut oil, [...] can cause a heart attack (myocardial infarction, [place]). CAD is a leading cause of for [...] 12/25/2012 Document Revised: 03/10/2017 Document Reviewed: 02/04/2015 [employer] Interactive Patient Education ? 2017 [employer] Groin Site Care Refer to this [...] Document Reviewed: 11/05/2011 ExitCare? Patient Information ?2013 [employer]. Angiogram An angiogram, also called angiography, is [...] including vitamins, herbs, eye drops, creams, and lmio-dpj-zytiico medicines. ??? Any problems you or family [...] 07/13/2006 Document Revised: 03/16/2017 Document Reviewed: 03/06/2014 [employer] Interactive Patient Education ? 2017 [employer]. Medication Leaflets: valsartan (elin BAUTISTA foster) Rivka [...] valsartan; ?? if you are on a ydj-qppp-cuxz; ?? if you are dehydrated; or ?? [...] may report side effects to FDA at 3-617-ZPF-1475. What other drugs will affect valsartan? Tell [...] may interact with valsartan, including prescription and hnkz-cwn-klzauow medicines, vitamins, and herbal products. Not all [...] to ensure that the information provided by [employer]. ('Multum') is accurate, up-to-date, and complete, but no guarantee is made to that effect. Drug information contained herein may be time sensitive. [employer] information has been compiled for use by healthcare practitioners and consumers in the [place] and therefore [employer] does not warrant that uses outside of the [place] are appropriate, unless specifically indicated otherwise. [employer] drug information does not endorse drugs, diagnose patients or recommend therapy. Cognitum drug information is an informational resource designed [...] effective or appropriate for any given patient. [employer] does not assume any responsibility for any aspect of healthcare administered with the aid of information CloudPrime provides. The information contained herein is not intended to cover all possible uses, directions, precautions, warnings, drug interactions, allergic reactions, or adverse effects. If you have questions about the drugs you are taking, check with your doctor, nurse or pharmacist. Copyright 7753-5546 [employer]. Version: 16.05. Revision Date: 09/08/2016. hydralazine (bob [...] may report side effects to FDA at 4-951-WJY-9765. What other drugs will affect hydralazine? Tell your doctor about all your current medicines and any you start or stop using, especially: ? diazoxide (an injectable blood pressure medication); or ?? an MAO inhibitor--isocarboxazid, linezolid, methylene blue injection, phenelzine, rasagiline, selegiline, tranylcypromine, and others. This list is not complete. Other drugs may interact with hydralazine, including prescription and yqjx-hhz-vbekrqu medicines, vitamins, and herbal products. Not all [...] to ensure that the information provided by [employer]. ('Multum') is accurate, up-to-date, and complete, but no guarantee is made to that effect. Drug information contained herein may be time sensitive. [employer] information has been compiled for use by healthcare practitioners and consumers in the [place] and therefore [employer] does not warrant that uses outside of the [place] are appropriate, unless specifically indicated otherwise. [employer]'s drug information does not endorse drugs, diagnose patients or recommend therapy. [employer]Med[employer] drug information is an informational resource designed [...] effective or appropriate for any given patient. [employer] does not assume any responsibility for any aspect of healthcare administered with the aid of information [employer] provides. The information contained herein is not intended to cover all possible uses, directions, precautions, warnings, drug interactions, allergic reactions, or adverse effects. If you have questions about the drugs you are taking, check with your doctor, nurse or pharmacist. Copyright 2258-7819 [employer]. Version: 5.01. Revision Date: 10/26/2017. amlodipine (am CAS reyes) [facility] What is the most important information I [...] may report side effects to FDA at 2-906-ZCX-6479. What other drugs will affect amlodipine? Tell your doctor about all your current medicines and any you start or stop using, especially: ? nitroglycerin; ?? simvastatin (Zocor, Simcor, Vytorin); or ?? any other heart or blood pressure medications. This list is not complete. Other drugs may interact with amlodipine, including prescription and wrvp-nvl-zwfuxpy medicines, vitamins, and herbal products. Not all [...] to ensure that the information provided by Wow[employer]. ('Tipstartum') is accurate, up-to-date, and complete, but no guarantee is made to that effect. Drug information contained herein may be time sensitive. [employer] information has been compiled for use by healthcare practitioners and consumers in the [place] and therefore [employer] does not warrant that uses outside of the [place] are appropriate, unless specifically indicated otherwise. [employer]Med[employer] drug information does not endorse drugs, diagnose patients or recommend therapy. [employer]Medias drug information is an informational resource designed [...] effective or appropriate for any given patient. [employer] does not assume any responsibility for any aspect of healthcare administered with the aid of information CloudPrime provides. The information contained herein is not intended to cover all possible uses, directions, precautions, warnings, drug interactions, allergic reactions, or adverse effects. If you have questions about the drugs you are taking, check with your doctor, nurse or pharmacist. Copyright 3962-4560 [employer]. Version: 14.01. Revision Date: 01/24/2017. clopidogrel (kloe [...] may report side effects to FDA at 4-973-LXY-8786. What other drugs will affect clopidogrel? Certain other medicines may increase your risk of bleeding, including aspirin. Avoid taking aspirin unless your doctor tells you to. Tell your doctor about all your other medicines, especially: ? any other medicines to treat or prevent blood clots; ?? a stomach acid sales floor team member such as omeprazole, Nexium, or Prilosec; ?? an antidepressant; ?? an opioid medication; ?? a blood thinner--warfarin, Coumadin, Jantoven; or ?? NSAIDs (nonsteroidal anti-inflammatory drugs)--ibuprofen (Advil, Motrin), naproxen (Aleve), celecoxib, diclofenac, indomethacin, meloxicam, and others. This list is not complete. Other drugs may affect clopidogrel, including prescription and gqvy-pko-lpcoqwr medicines, vitamins, and herbal products. Not all [...] to ensure that the information provided by Wow[employer]. ('Multum') is accurate, up-to-date, and complete, but no guarantee is made to that effect. Drug information contained herein may be time sensitive. [employer] information has been compiled for use by healthcare practitioners and consumers in the [place] and therefore [employer] does not warrant that uses outside of the [place] are appropriate, unless specifically indicated otherwise. Q1Medias drug information does not endorse drugs, diagnose patients or recommend therapy. [employer]1Medias drug information is an informational resource designed [...] effective or appropriate for any given patient. [employer] does not assume any responsibility for any aspect of healthcare administered with the aid of information CloudPrime provides. The information contained herein is not intended to cover all possible uses, directions, precautions, warnings, drug interactions, allergic reactions, or adverse effects. If you have questions about the drugs you are taking, check with your doctor, nurse or pharmacist. Copyright 7408-0991 WowOw[employer]. Version: 15.01. Revision Date: 08/07/2018. ranolazine (ra [...] may report side effects to FDA at 1-058-SQA-3128. What other drugs will affect ranolazine? Many [...] interact with ranolazine. This includes prescription and hgxi-nwk-uydfocm medicines, vitamins, and herbal products. Give a [...] to ensure that the information provided by Wow[employer]. ('Multum') is accurate, up-to-date, and complete, but no guarantee is made to that effect. Drug information contained herein may be time sensitive. CloudPrime information has been compiled for use by healthcare practitioners and consumers in the [place] and therefore [employer] does not warrant that uses outside of the [place] are appropriate, unless specifically indicated otherwise. CloudPrime's drug information does not endorse drugs, diagnose patients or recommend therapy. Q1Medias drug information is an informational resource designed [...] effective or appropriate for any given patient. [employer] does not assume any responsibility for any aspect of healthcare administered with the aid of information CloudPrime provides. The information contained herein is not intended to cover all possible uses, directions, precautions, warnings, drug interactions, allergic reactions, or adverse effects. If you have questions about the drugs you are taking, check with your doctor, nurse or pharmacist. Copyright 3522-9137 [employer]Ow[employer]. Version: 11.. Revision Date: 12/04/2015. CIGARETTE SMOKING: The facts are clear, cigarette smoking will shorten your life. Smoking can cause many illnesses along the way. As a healthcare provider, we recommend that you stop smoking. Assistance with quitting is available by contacting 8-143-GZES-NOW. This is a free resource providing counseling, [...] Be sure to sign up for the PrecisionDemand patient portal, which gives you 09/05 access to your medical information ??? including these discharge instructions ??? using your computer, smartphone, or tablet. Just go to PastBook to get started. Questions? Call . [facility] would like to thank you for allowing us to assist you with your healthcare needs. MICHELE Skaggs JUDY D, (or strategic partnership representative) have received the above patient education materials/instructions and have verbalized understanding: Patient Signature _ Date/Time Patient District Adviser Signature (if needed) Date/Time Clinician/Hospital District Adviser Signature (if needed) Date/Time Electronically signed by Sivan, [facility] Conversion Ditch Digger Cerner at 02/04/2023 2:01 PM CDT documented in this encounter Plan of Treatment Not on file documented as of this encounter Visit Diagnoses Not on filedocumented in this encounter Care Teams Station Supervisor Relationship Specialty Start Date End Date Jay Howell MD [address] [place] [phone] PCP - General Emergency Medicine 11/12/23 documented as of this encounter
--- OUTSIDE RECORDS SUMMARY | 2025-07-24 06:56 | XMS_ITS | Encounter Summary ---
Author Organization [employer] ([place], [place], [place], [place]) Address [address] [place] [address] Care Team Providers Care Electrician Ship Name Role Phone Jay Howell MD Primary Care Provider [phone] Encounter Details Date Type Department Care Team (Late st Contact Info) Description 08/29/2020 Transcribed Document [facility] [place] [address] [place] [address] ProviderJessie MD [address] [place] [address] Social History Tobacco Use Types Packs/Day Years Used Date Smoking Tobacco: Never Assessed Comments Unknown Sex and Gender Information Value Date Recorded Sex Assigned at Not on file Legal Sex Female 7:30 PM CDT Gender Identity Not on file Sexual Orientation Not on file documented as of this encounter Miscellaneous Notes * Cerner Conversion Note - Jessie Yuen MD - 08/29/2020 8:24 AM SOLE SPLITTER Patient: SKYLER MONTOYA Age: 79 years Sex: [...] Date End Date Jay Howell MD [address] [place] [phone] PCP - General Emergency Medicine 11/12/23 documented as of this encounter
--- OUTSIDE RECORDS SUMMARY | 2025-07-24 06:56 | XMS_ITS | Clinical Summary ---
Author Organization [facility] Address [address] [place] [address] Care Team Providers Care Medical Device Assembler Name Role Phone Unavailable Primary Care Provider [...]
--- OUTSIDE RECORDS SUMMARY | 2025-07-24 06:56 | XMS_ITS | Encounter Summary ---
Author Organization [employer] ([place], [place], [place], [place]) Address [address] [place] [address] Care Team Providers Care Small Parts Shaper Operator Name Role Phone Jay Howell MD Primary Care Provider [phone] Encounter Details Date Type Department Care Team (Late st Contact Info) Description 12/14/2018 Transcribed Document [facility] Family Medicine [address] [place] [address] ProviderJessie MD [address] [place], [place] [address] Social History Tobacco Use Types Packs/Day Years Used Date Smoking Tobacco: Never Assessed Comments Unknown Sex and Gender Information Value Date Recorded Sex Assigned at Not on file Legal Sex Female 7:30 PM CDT Gender Identity Not on file Sexual Orientation Not on file documented as of this encounter Miscellaneous Notes * Cerner Conversion Note - Jessie ProviderMD - 12/14/2018 4:47 PM CUSTOMER OPERATIONS MANAGER CR Chest 2 Vws Ordered: 12/12/2018 Auth (Verified) Reason for Exam: cp 12/13/2018 11:39 12/14/2018 16:47 (FLORENTIN CAMARGO) No further action required Electronically signed by Gayle Finnegan Conversion Medical Appointment Scheduler Cerner at 02/04/2023 2:16 PM CDT documented in this encounter Plan of Treatment Not on file documented as of this encounter Visit Diagnoses Not on filedocumented in this encounter Care Teams Small Parts Shaper Operator Relationship Specialty Start Date End Date Jay Howell MD [address] [place] [phone] PCP - General Emergency Medicine 11/12/23 documented as of this encounter
--- OUTSIDE RECORDS SUMMARY | 2025-07-24 06:56 | XMS_ITS | Encounter Summary ---
Author Organization [employer] ([place], [place], [place], [place]) Address [address] [place] [address] Care Team Providers Care Tray Server Name Role Phone Jay Howell MD Primary Care Provider [phone] Encounter Details Date Type Department Care Team (Late st Contact Info) Description 12/21/2018 Transcribed Document [facility] [place] [address] [place] [address] ProviderJessie MD [address] [place] [address] Social History Tobacco Use Types Packs/Day Years Used Date Smoking Tobacco: Never Assessed Comments Unknown Sex and Gender Information Value Date Recorded Sex Assigned at Not on file Legal Sex Female 7:30 PM CDT Gender Identity Not on file Sexual Orientation Not on file documented as of this encounter Miscellaneous Notes * Cerner Conversion Note - Jessie ProviderMD - 12/21/2018 9:33 AM HELP DESK SUPERVISOR Care Management Assessment/Plan Entered On: 12/21/2018 9:34 EST Performed On: 12/21/2018 9:33 EST by ANISH BRAN RN Care Management Note Care Management Note Report : ANISH BRAN RN - 12/21/18 09:37:01 Discharging today ANISH BRAN RN - 12/21/2018 12:24 EST Care Management Note : Order for cardiac rehab to the program at [facility] - they will ocntact pt Documentation Status Complete : Yes ANISH BRAN RN - 12/21/2018 9:33 EST Discharge Planning Details Discharge Home : Home with spouse/significant other Discharge Placement Needs : Home Persons Assisting Patient at Home : Spouse Transportation Needs : Family/Friend ANISH BRAN RN - 12/21/2018 9:33 EST Final Discharge Disposition Note-CM Discharge To Care Management : Home/Residential/Residential or Self Care -01 ANISH BRAN RN - 12/21/2018 9:33 EST Electronically signed by [facility] Conversion Dye Tub Tender Cerner at 02/04/2023 2:07 PM CDT documented in this encounter Plan of Treatment Not on file documented as of this encounter Visit Diagnoses Not on filedocumented in this encounter Care Teams Tray Server Relationship Specialty Start Date End Date Jay Howell MD [address] [place] [phone] PCP - General Emergency Medicine 11/12/23 documented as of this encounter
--- OUTSIDE RECORDS SUMMARY | 2025-07-24 06:56 | XMS_ITS | Encounter Summary ---
Author Organization [employer] ([place], [place], [place], [place]) Address [address] [place] [address] Care Team Providers Care Aquatic Performer Name Role Phone Jay Howell MD Primary Care Provider [phone] Encounter Details Date Type Department Care Team (Late st Contact Info) Description 12/20/2018 Transcribed Document [facility] [place] Family Medicine [address] [place] [address] ProviderJessie MD [address] [place] [address] Social History Tobacco Use Types Packs/Day Years Used Date Smoking Tobacco: Never Assessed Comments Unknown Sex and Gender Information Value Date Recorded Sex Assigned at Not on file Legal Sex Female 7:30 PM CDT Gender Identity Not on file Sexual Orientation Not on file documented as of this encounter Miscellaneous Notes * Cerner Conversion Note - Historical ProviderMD - 12/20/2018 9:55 PM WEED CONTROLLER Pain Assessment Entered On: 12/21/2018 4:53 EST [...] Date Jay Howell MD [address] [place] [phone] PCP - General Emergency Medicine 11/12/23 documented as of this encounter
--- OUTSIDE RECORDS SUMMARY | 2025-07-24 06:57 | XMS_ITS | Encounter Summary ---
Author Organization [employer] ([place], [place], [place], [place]) Address [address] [place] [address] Care Team Providers Care Vice Chancellor Name Role Phone Jay Howell MD Primary Care Provider [phone] Encounter Details Date Type Department Care Team (Late st Contact Info) Description 03/19/2021 Transcribed Document [facility] [place] [facility] [place] [address] ProviderJessie MD [address] [place], [place] [phone] Social History Tobacco Use Types Packs/Day Years [...] 2. Calcification of the vertebral origins with muph-hx-fpwhhsbu stenosis. 3. Extensive vascular calcification. 4. Severe [...] difficult. The CTA also shows bilateral proximal CARDIAC CATHETERIZATION TECHNICIAN stenoses. The differential could include one or [...] filedocumented in this encounter Care Teams Vice Chancellor Relationship Specialty Start Date End Date Jay Howell MD [address] [place] [phone] PCP - General Emergency Medicine 11/12/23 documented as of this encounter
--- OUTSIDE RECORDS SUMMARY | 2025-07-24 06:57 | XMS_ITS | Encounter Summary ---
Author Organization [employer] ([place], [place], [place], [place]) Address [address] [place] [address] Care Team Providers Care Death Clearance Coordinator Name Role Phone Jay Howell MD Primary Care Provider [phone] Encounter Details Date Type Department Care Team (Late st Contact Info) Description 07/18/2021 Transcribed Document [facility] [place] [address] [place] [address] ProviderJessie MD [address] [place], [place] [id number] Social History Tobacco Use Types Packs/Day Years Used Date Smoking Tobacco: Never Assessed Comments Unknown Sex and Gender Information Value Date Recorded Sex Assigned at Not on file Legal Sex Female 7:30 PM CDT Gender Identity Not on file Sexual Orientation Not on file documented as of this encounter Miscellaneous Notes * Cerner Conversion Note - Jessie ProviderMD - 07/18/2021 8:22 PM CDT [facility] [place] [address] SKYLER MONTOYA :1940 Visit Time:07/18/2021 Your Visit [...] different. Where: [address] [place], [place] [phone] (1) Allergies Macrodantin morphine (rash, rash) [...] range between ( 0.0 and 7.0 ) [place] #: 0.50 K/uL -- Normal range between ( 0.16 and 1.00 ) [place] #: 0.00 x10(3)/uL -- Normal range between ( 0.00 and 0.80 ) [place] %: 10.4 % -- Normal range between [...] these instructions at home: Medicines ??? Take fyax-ipn-xwgfnub and prescription medicines only as told by [...] provider. Document Revised: 04/05/2019 Document Reviewed: 04/05/2019 [employer] Patient Education ?? 2020 [employer]. Emergency Awareness and Preventative Care STROKE is [...] Assistance with quitting is available by contacting 1-832-ZLJF-NOW. This is a free resource providing counseling, [...] was given the opportunity to ask questions. Patient/[employer] Name: Patient/[employer] Signature: Relationship to Patient: Clinician/Hospital [employer] Signature: Please Provide a Telephone Number Where You Can Be Reached: Is it Permissible To Leave a Message? Date: documented in this encounter Plan of Treatment Not on file documented as of this encounter Visit Diagnoses Not on filedocumented in this encounter Care Teams Death Clearance Coordinator Relationship Specialty Start Date End Date Jay Howell MD [address] [place] [phone] PCP - General Emergency Medicine 11/12/23 documented as of this encounter
--- OUTSIDE RECORDS SUMMARY | 2025-07-24 06:57 | XMS_ITS | Encounter Summary ---
Author Organization [employer] ([place], [place], [place], [place]) Address [address] [place] [address] Care Team Providers Care Sodium Chlorite Operator Name Role Phone Jay Howell MD Primary Care Provider [phone] Encounter Details Date Type Department Care Team (Late st Contact Info) Description 07/18/2021 Transcribed Document [facility] [place] Medicine [facility] [place] [address] ProviderJessie MD [address] [place], [place] [address] Social History Tobacco Use Types Packs/Day Years [...] Communication Barrier : None Primary Language : Kuwaiti Any Spiritual/Cultural Needs or Requests : No [...] (Last Updated: 08/13/2013 09:59:59 EDT by KENYON CHMABERS RN) Nutrition/Health: Caffeine intake amount: 2. (Last [...] on filedocumented in this encounter Care Teams Sodium Chlorite Operator Relationship Specialty Start Date End Date Jay Howell MD [address] [place] [phone] PCP - General Emergency Medicine 11/12/23 documented as of this encounter
--- OUTSIDE RECORDS SUMMARY | 2025-07-24 06:57 | XMS_ITS | Encounter Summary ---
Author Organization [employer] ([place], [place], [place], [place]) Address [address] [place] [address] Care Team Providers Care Fish Trapper Name Role Phone Jay Howell MD Primary Care Provider [phone] Encounter Details Date Type Department Care Team (Late st Contact Info) Description 03/19/2021 Transcribed Document [facility] [place] [facility] [place] [address] ProviderJessie MD [address] [place], [place] [phone] Social History Tobacco Use Types Packs/Day Years Used Date Smoking Tobacco: Never Assessed Comments Unknown Sex and Gender Information Value Date Recorded Sex Assigned at Not on file Legal Sex Female 7:30 PM CDT Gender Identity Not on file Sexual Orientation Not on file documented as of this encounter Miscellaneous Notes * Cerner Conversion Note - Historical ProviderMD - 03/19/2021 2:00 AM CDT Boring Mill Set Up Operator Vertical Details Entered On: 03/19/2021 2:31 EDT Performed [...] 03/19/2021 2:31 EDT Electronically signed by Sivan [facility] Conversion Strike Warfare/Missile Systems Officer Cerner at 02/04/2023 2:11 PM CDT documented in this encounter Plan of Treatment Not on file documented as of this encounter Visit Diagnoses Not on filedocumented in this encounter Care Teams Fish Trapper Relationship Specialty Start Date End Date Jay Howell MD [address] [place] [phone] PCP - General Emergency Medicine 11/12/23 documented as of this encounter
--- OUTSIDE RECORDS SUMMARY | 2025-07-24 06:57 | XMS_ITS | Encounter Summary ---
Author Organization [employer] ([place], [place], [place], [place]) Address [address] [place] [address] Care Team Providers Care Box Repairer Name Role Phone Jay Howell MD Primary Care Provider [phone] Encounter Details Date Type Department Care Team (Late st Contact Info) Description 07/18/2021 Transcribed Document [facility] [place] [address] [place] [address] ProviderJessie MD [address] [place] [id number] Social History Tobacco Use Types Packs/Day Years [...] filedocumented in this encounter Care Teams Box Repairer Relationship Specialty Start Date End Date Jay Howell MD [address] [place] [phone] PCP - General Emergency Medicine 11/12/23 documented as of this encounter
--- OUTSIDE RECORDS SUMMARY | 2025-07-24 06:57 | XMS_ITS | Encounter Summary ---
Author Organization [employer] ([place], [place], [place], [place]) Address [address] [place] [address] Care Team Providers Care Emergency Services Director Name Role Phone Jay Howell MD Primary Care Provider [phone] Encounter Details Date Type Department Care Team (Late st Contact Info) Description 09/01/2020 Transcribed Document [facility] [place] [address] [place] [address] ProviderJessie MD [address] [place] [address] Social History Tobacco Use Types Packs/Day Years Used Date Smoking Tobacco: Never Assessed Comments Unknown Sex and Gender Information Value Date Recorded Sex Assigned at Not on file Legal Sex Female 7:30 PM CDT Gender Identity Not on file Sexual Orientation Not on file documented as of this encounter Miscellaneous Notes * Cerner Conversion Note - Jessie Yuen MD - 09/01/2020 9:16 AM MATERIAL CARRIER Patient: SKYLER MONTOYA Age: 79 years Sex: Female : 1940 Associated Diagnoses: None Author: Cheng Jennings, Investor Relations Analyst Cert Ms. Montoya is 79 yo female [...] you for this consult, Nathan Tamayo RPh Electronically signed by Gayle Finnegan Conversion Vocational Rehabilitation Teacher Cerner at 02/04/2023 2:20 PM CDT documented in this encounter Plan of Treatment Not on file documented as of this encounter Visit Diagnoses Not on filedocumented in this encounter Care Teams Emergency Services Director Relationship Specialty Start Date End Date Jay Howell MD [address] [place] [phone] PCP - General Emergency Medicine 11/12/23 documented as of this encounter
--- OUTSIDE RECORDS SUMMARY | 2025-07-24 06:57 | XMS_ITS | Encounter Summary ---
Author Organization [employer] ([place], [place], [place], [place]) Address [address] [place] [address] Care Team Providers Care License Distributor Name Role Phone Jay Howell MD Primary Care Provider [phone] Encounter Details Date Type Department Care Team (Late st Contact Info) Description 12/12/2018 Transcribed Document [facility] [place] [address] [place] [address] ProviderJessie MD [address] [place] [address] Social History Tobacco Use Types Packs/Day Years Used Date Smoking Tobacco: Never Assessed Comments Unknown Sex and Gender Information Value Date Recorded Sex Assigned at Not on file Legal Sex Female 7:30 PM CDT Gender Identity Not on file Sexual Orientation Not on file documented as of this encounter Miscellaneous Notes * Cerner Conversion Note - Jessie ProviderMD - 12/12/2018 10:39 PM PATIENT CONSUMER MARKETER ED Discharge Entered On: 12/12/2018 22:40 EST [...] - 12/12/2018 22:39 EST Electronically signed by [facility] Conversion Compliance Spec Cerner at 02/04/2023 2:15 PM CDT documented in this encounter Plan of Treatment Not on file documented as of this encounter Visit Diagnoses Not on filedocumented in this encounter Care Teams License Distributor Relationship Specialty Start Date End Date Jay Howell MD [address] [place] [phone] PCP - General Emergency Medicine 11/12/23 documented as of this encounter
--- OUTSIDE RECORDS SUMMARY | 2025-07-24 06:57 | XMS_ITS | Encounter Summary ---
Author Organization [employer] ([place], [place], [place], [place]) Address [address] [place] [address] Care Team Providers Care Flexographic Press Plate Setter Name Role Phone Jay Howell MD Primary Care Provider [phone] Encounter Details Date Type Department Care Team (Late st Contact Info) Description 09/01/2020 Transcribed Document [facility] [place] [address] [place] [address] ProviderJessie MD [address] [place] [address] Social History Tobacco Use Types Packs/Day Years Used Date Smoking Tobacco: Never Assessed Comments Unknown Sex and Gender Information Value Date Recorded Sex Assigned at Not on file Legal Sex Female 7:30 PM CDT Gender Identity Not on file Sexual Orientation Not on file documented as of this encounter Miscellaneous Notes * Cerner Conversion Note - Jessie ProviderMD - 09/01/2020 2:19 PM LAYOUT FORMER Patient Education Materials Follows: Negative Pressure Wound [...] bag. ??? Soap and water, or hand centrifugal supervisor. ??? Wound cleanser or salt-water solution (saline). [...] and water are not available, use hand centrifugal supervisor. 3. Set up a clean station for [...] and water are not available, use hand centrifugal supervisor. Clean your wound ??? Wear gloves, protective [...] and water are not available, use hand centrifugal supervisor. Apply new dressing ??? Wear gloves, protective [...] and water are not available, use hand centrifugal supervisor. 8. Turn the pump back on. The sponge dressing should collapse. Do not change the settings on the machine without talking to a health care provider. 9. Replace the container in the pump that collects fluid if it is full. Replace the container per the stunner's instructions or at least once a week, [...] clamps are open. ??? Do not use tmvs-rix-aesmwth medicated or antiseptic creams, sprays, liquids, or [...] 12/25/2012 Document Revised: 01/25/2020 Document Reviewed: 12/21/2019 [employer] Patient Education ? 2019 [employer] Hematology Hematoma A hematoma is a [...] health care provider. General instructions ??? Take aoaf-wlg-hvhyhyc and prescription medicines only as told by [...] 05/17/2005 Document Revised: 03/08/2019 Document Reviewed: 03/08/2019 [employer] Patient Education ? 2020 [employer] Infectious Disease Cellulitis, Adult Cellulitis is [...] these instructions at home: Medicines ??? Take ekbh-cux-toiqykw and prescription medicines only as told by [...] 03/21/2009 Document Revised: 02/22/2019 Document Reviewed: 02/22/2019 [employer] Patient Education ? 2020 [employer] Pharmacology What You Need to Know [...] other medicines or supplements? Many prescription and qdgg-hya-zlwdnam medicines can interfere with warfarin. Talk with your health care provider or your pharmacist before starting or stopping any new medicines. This includes kwkm-ssf-nsebfyu vitamins, dietary supplements, herbal medicines, and pain medicines. Your warfarin dosage may need to be adjusted. ??? Some common kclw-pzf-fwwulod medicines that may increase the risk of [...] that you work with a diet and project management specialist (dietitian). ??? Vitamin K decreases the [...] cooked. ??? Collards, raw or cooked. ??? [place] Citizen chard, raw or cooked. ??? Mustard greens, raw or cooked. ??? Turnip greens, raw or cooked. ??? Parsley, raw. ??? Broccoli, cooked. ??? Noodles, eggs, and spinach, enriched. ??? [place] sprouts, raw or cooked. ??? Beet greens, [...] diet. ??? You start or stop any mgaq-wsm-qxybqei medicine, prescription medicine, or dietary supplement. ??? [...] 10/03/2006 Document Revised: 05/16/2018 Document Reviewed: 12/29/2016 [employer] Patient Education ? 2020 [employer]. documented in this encounter Plan of Treatment Not on file documented as of this encounter Visit Diagnoses Not on filedocumented in this encounter Care Teams Flexographic Press Plate Setter Relationship Specialty Start Date End Date Jay Howell MD [address] [place] [phone] PCP - General Emergency Medicine 11/12/23 documented as of this encounter
--- OUTSIDE RECORDS SUMMARY | 2025-07-24 06:57 | XMS_ITS | Encounter Summary ---
Author Organization [employer] ([place], [place], [place], [place]) Address [address] [place] [address] Care Team Providers Care Snuff Container Inspector Name Role Phone Jay Howell MD Primary Care Provider [phone] Encounter Details Date Type Department Care Team (Late st Contact Info) Description 09/04/2020 Transcribed Document [facility] [place] [address] [place] [address] ProviderJessie MD [address] [place] [address] Social History Tobacco Use Types Packs/Day Years Used Date Smoking Tobacco: Never Assessed Comments Unknown Sex and Gender Information Value Date Recorded Sex Assigned at Not on file Legal Sex Female 7:30 PM CDT Gender Identity Not on file Sexual Orientation Not on file documented as of this encounter Miscellaneous Notes * Cerner Conversion Note - Jessie ProviderMD - 09/04/2020 4:04 AM GRIP WRAPPER ED Triage Entered On: 09/04/2020 4:13 EST Performed On: 09/04/2020 1:51 EST by Chinyere Leonard RN ED Triage Across the Room Chief Complaint : see downtime triage form Triage Date/Time : 09/04/2020 1:51 EST Chinyere Leonard RN - 09/04/2020 4:12 EST DCP GENERIC CODE Tracking Acuity : 4 - Non - Urgent Tracking Group : [facility] ED Chinyere Lenoard RN - 09/04/2020 4:12 EST Mode of Arrival : Ambulatory Transported to ED by : Private vehicle To Room Via : Ambulate Accompanied By : Spouse Height & Weight : Document ED Allergies : Document ED Reason for Visit : Document Tetanus Immunization : Less than 5 years Building Pressure Washer Needed : No Chinyere Leonard RN - [...] 04:13:26 EST) Problems(Active) Apnea, sleep (SNOMED CT :731601330 ) Name of Problem: Apnea, sleep ; Recorder: JUAN LUIS GIL RN; Confirmation: Confirmed ; Classification: Medical ; Code: [id number] ; Contributor System: Zebit ; Last Updated: 11/12/2014 10:12 EST ; Life Cycle Date: 11/12/2014 ; Life Cycle Status: Active ; Vocabulary: SNOMED CT Arthritis (SNOMED CT :2578365 ) Name of Problem: Arthritis ; Recorder: KENYON CHAMBERS RN; Confirmation: Confirmed ; Classification: Medical ; Code: 0156517 ; Contributor System: PowerChart ; Last Updated: 04/10/2016 8:04 EDT ; Life Cycle Date: 08/13/2013 ; Life Cycle Status: Active ; Vocabulary: SNOMED CT Atrial fibrillation with RVR (SNOMED CT :0375374989 ) Name of Problem: Atrial fibrillation with RVR ; Recorder: SANG RICO APRN; Confirmation: Confirmed ; Classification: Medical ; Code: 2975564207 ; Contributor System: PowerChart ; Last Updated: 04/10/2016 8:05 EDT ; Life Cycle Date: 04/10/2016 ; Life Cycle Status: Active ; Responsible Provider: SANG RICO APRN; Vocabulary: SNOMED CT Blood clot (SNOMED CT :319211477 ) Name of Problem: Blood clot ; Recorder: KENYON CHAMBERS RN; Confirmation: Confirmed ; Classification: Patient Stated ; Code: 370519842 ; Contributor System: PowerChart ; Last Updated: [...] Vocabulary: Patient Care Chest pain (SNOMED CT :60323326 ) Name of Problem: Chest pain ; Recorder: SANG RICO APRN; Confirmation: Complaint of ; Classification: Medical ; Code: 05569489 ; Contributor System: PowerChart ; Last Updated: 04/10/2016 8:05 EDT ; Life Cycle Status: Active ; Responsible Provider: SANG RICO APRN; Vocabulary: SNOMED CT Chronic anticoagulation (SNOMED CT :418261699 ) Name of Problem: Chronic anticoagulation ; Recorder: SANG RICO APRN; Confirmation: Confirmed ; Classification: Medical ; Code: 170775581 ; Contributor System: PowerChart ; Last Updated: 04/10/2016 8:05 EDT ; Life Cycle Date: 04/10/2016 ; Life Cycle Status: Active ; Responsible Provider: SANG RICO APRN; Vocabulary: SNOMED CT Clotting disorder (SNOMED CT :981850101 ) Name of Problem: Clotting disorder ; Recorder: KENYON CHAMBERS RN; Confirmation: Confirmed ; Classification: Patient Stated ; Code: 065580194 ; Contributor System: PowerChart ; Last Updated: 03/28/2014 19:29 EDT ; Life Cycle Date: 08/13/2013 ; Life Cycle Status: Active ; Vocabulary: SNOMED CT COPD (SNOMED CT :10509929 ) Name of Problem: COPD ; Recorder: KENYON CHAMBERS RN; Confirmation: Confirmed ; Classification: Medical ; Code: 33585263 ; Contributor System: PowerChart ; Last Updated: 04/10/2016 8:03 EDT ; Life Cycle Date: 08/13/2013 ; Life Cycle Status: Active ; Vocabulary: SNOMED CT Coronary artery disease (SNOMED CT :9006167453 ) Name of Problem: Coronary artery disease ; Recorder: KENYON CHAMBERS RN; Confirmation: Confirmed ; Classification: Medical ; Code: 1317976341 ; Contributor System: PowerChart ; Last Updated: 04/10/2016 8:03 EDT ; Life Cycle Date: 08/13/2013 ; Life Cycle Status: Active ; Vocabulary: SNOMED CT Diabetes mellitus (SNOMED CT :861687909 ) Name of Problem: Diabetes mellitus ; Recorder: KENYON CHAMBERS RN; Confirmation: Confirmed ; Classification: Medical ; Code: 847464298 ; Contributor System: PowerChart ; Last Updated: 04/10/2016 8:04 EDT ; Life Cycle Date: 08/13/2013 ; Life Cycle Status: Active ; Vocabulary: SNOMED CT Emphysema (SNOMED CT :286833025 ) Name of Problem: Emphysema ; Recorder: JUAN LUIS GIL RN; Confirmation: Confirmed ; Classification: Medical ; Code: 955373880 ; Contributor System: PowerChart ; Last Updated: 11/12/2014 10:11 EST ; Life Cycle Date: 11/12/2014 ; Life Cycle Status: Active ; Vocabulary: SNOMED CT GERD - Gastro-esophageal reflux disease (SNOMED CT :6914747018 ) Name of Problem: GERD - Gastro-esophageal reflux disease ; Recorder: KENYON CHAMBERS RN; Confirmation: Confirmed ; Classification: Medical ; Code: 3071768114 ; Contributor System: PowerChart ; Last Updated: [...] Patient Care High blood pressure (SNOMED CT :94601137 ) Name of Problem: High blood pressure ; Recorder: KENYON CHAMBERS RN; Confirmation: Confirmed ; Classification: Medical ; Code: 02058138 ; Contributor System: PowerChart ; Last Updated: 04/10/2016 8:03 EDT ; Life Cycle Date: 08/13/2013 ; Life Cycle Status: Active ; Vocabulary: SNOMED CT History of obstructive sleep apnea (IMO :49937245 ) Name of Problem: History of obstructive sleep apnea ; Recorder: SYSTEM, SYSTEM; Confirmation: Confirmed ; Classification: Medical ; Code: 83718763 ; Last Updated: 08/25/2020 18:21 EST ; Life Cycle Date: 08/25/2020 ; Life Cycle Status: Active ; Vocabulary: IMO Hx of pulmonary embolus (SNOMED CT :805395205 ) Name of Problem: Hx of pulmonary embolus ; Recorder: SANG RICO APRN; Confirmation: Confirmed ; Classification: Medical ; Code: 687678752 ; Contributor System: PowerChart ; Last Updated: 04/10/2016 8:05 EDT ; Life Cycle Date: 04/10/2016 ; Life Cycle Status: Active ; Responsible Provider: SANG RICO APRN; Vocabulary: SNOMED CT Hyperlipidemia (SNOMED CT :41196867 ) Name of Problem: Hyperlipidemia ; Recorder: KENYON CHAMBERS RN; Confirmation: Confirmed ; Classification: Medical ; Code: 55839332 ; Contributor System: PowerChart ; Last Updated: 04/10/2016 8:03 EDT ; Life Cycle Date: 08/13/2013 ; Life Cycle Status: Active ; Vocabulary: SNOMED CT Multiple renal cysts (SNOMED CT :766096424 ) Name of Problem: Multiple renal cysts ; Recorder: KENYON CHAMBERS RN; Confirmation: Confirmed ; Classification: Medical ; Code: 281973079 ; Contributor System: Zebit ; Last Updated: 04/10/2016 8:04 EDT ; Life Cycle Date: 08/13/2013 ; Life Cycle Status: Active ; Vocabulary: SNOMED CT Stented coronary artery (SNOMED CT :5913380614 ) Name of Problem: Stented coronary artery ; Recorder: KENYON CHAMBERS RN; Confirmation: Confirmed ; Classification: Medical ; Code: 4094141719 ; Contributor System: Zebit ; Last Updated: 04/10/2016 8:03 EDT ; Life Cycle Date: 08/13/2013 ; Life Cycle Status: Active ; Vocabulary: SNOMED CT Diagnoses(Active) Wound drain evaluation Date: 09/04/2020 ; Diagnosis Type: Reason For Visit ; Confirmation: Complaint of ; Clinical Dx: Wound drain evaluation ; Classification: Medical ; Clinical Service: Non-Specified ; Code: PNED ; Probability: 0 ; Diagnosis Code: [id number] ED Height and Weight Height Source : Stated Height Entry Format : [place] Height, Feet : 5 ft(Converted to: 152 cm, 60 Inch) Height, Inches : 4 Inch(Converted to: 0 ft 4 Inch, 10.16 cm) Clinical Height : 162.56 cm Weight Source, ED : Critical estimated dosing weight Weight Entry Format : [place] Weight, Pounds : 152 lb Clinical Dosing Weight : 69.09 kg Body Surface Area (BSA) : 1.74 m2 Body Mass Index : 26.1 kg/m2 (HI) [place] Body Weight (IBW) : 54.3 kg Chinyere Leonard RN - 09/04/2020 4:12 EST Electronically signed by Gayle Finnegan Conversion Director Of Distance Learning Cerner at 02/04/2023 1:57 PM CDT documented in this encounter Plan of Treatment Not on file documented as of this encounter Visit Diagnoses Not on filedocumented in this encounter Care Teams Snuff Container Inspector Relationship Specialty Start Date End Date Jay Howell MD [address] [place] [phone] PCP - General Emergency Medicine 11/12/23 documented as of this encounter
--- OUTSIDE RECORDS SUMMARY | 2025-07-24 06:57 | XMS_ITS | Encounter Summary ---
Author Organization [employer] ([place], [place], [place], [place]) Address [address] [place] [address] Care Team Providers Care Parachute Supervisor Name Role Phone Jay Howell MD Primary Care Provider [phone] Encounter Details Date Type Department Care Team (Late st Contact Info) Description 09/01/2020 Transcribed Document [facility] [place] [address] [place] [address] ProviderJessie MD [address] [place] [address] Social History Tobacco Use Types Packs/Day Years Used Date Smoking Tobacco: Never Assessed Comments Unknown Sex and Gender Information Value Date Recorded Sex Assigned at Not on file Legal Sex Female 7:30 PM CDT Gender Identity Not on file Sexual Orientation Not on file documented as of this encounter Miscellaneous Notes * Cerner Conversion Note - Historical ProviderMD - 09/01/2020 2:22 PM DIRECTOR OF SOCIAL SERVICES Stroke/Warfarin Instructions Entered On: 09/01/2020 14:22 EST Performed On: 09/01/2020 14:22 EST by Kailee Velasquez RN Stroke/Warfarin Instructions Stroke/TIA Discharge Ins : N/A Warfarin Discharge Ins : N/A Kailee Velasquez RN - 09/01/2020 14:22 EST documented in this encounter Plan of Treatment Not on file documented as of this encounter Visit Diagnoses Not on filedocumented in this encounter Care Teams Parachute Supervisor Relationship Specialty Start Date End Date Jay Howell MD [address] [place] [phone] PCP - General Emergency Medicine 11/12/23 documented as of this encounter
--- OUTSIDE RECORDS SUMMARY | 2025-07-24 06:57 | XMS_ITS | Encounter Summary ---
Author Organization [employer] ([place], [place], [place], [place]) Address [address] [place] [address] Care Team Providers Care Installer Molding And Trim Name Role Phone Jay Howell MD Primary Care Provider [phone] Encounter Details Date Type Department Care Team (Late st Contact Info) Description 07/18/2021 Transcribed Document [facility] [place] [address] [place] [address] ProviderJessie MD [address] [place] [address] Social History Tobacco Use Types Packs/Day Years [...] 06/13/2020 8:52 EVA LAWS RN PCI w/ [place] stent to D1 Coronary artery bypass graft (193573665) in 1992 at 52 Years. femur repair. Appendectomy (905968181). uterine suspension. Hysterectomy (682924869). back surgury. Cholecystectomy (55334910). Hip replacement (1307193713). cataract surgury.. Family history: Cardiomyopathy Child Stroke [...] EDT Height Source Stated Height Entry Format [place] Height/Length, SALV[place]ORE[place] (ft) 5 ft Height/Length SAL[place]OREAN 3 Inch CLINICALHEIGHT 160.02 cm [place] Body Weight 52.02 kg Weight Source, ED Critical estimated dosing weight Weight Entry Format [place] Weight Seneg[place]e lb 154 lb CLINICALWEIGHT 70 kg Body [...] C-SSRS: ED Clinical Reconciliation: ED Isolation: ED engineer gas pumping station: Lipase Level: PT/INR Prothrombin Time: PTT: ProBNP: Saline Lock Insert: Troponin I Ultra: Troponin I Ultra: aspirin: 324 mg, Chew, 1-Time iopamidol: 75 mL, IV Push, ADHOC. Electrocardiogram: Time 07/18/2021 15:21:00, rate 57, normal sinus rhythm, No ST changes, no ectopy, normal NJ & QRS intervals, EP Interp. Electrocardiogram: Time 07/18/2021 19:13:00, rate 53, normal sinus rhythm, No ST changes, no ectopy, normal NJ & QRS intervals, EP Interp. teletypesetter monitor: Normal sinus rhythm. Results review: All [...] % 30.3 % Lymph # 1.46 x10(3)/uL [place] % 10.4 % HI [place] # 0.50 K/uL Eos % 0.0 % Eos # 0.00 x10(3)/uL Baso % 0.4 % Baso # 0.02 x10(3)/uL Slide Review No IG# 0.03 x10(3)/uL IG% 0.60 % PT 39.6 Second(s) HI INR 4.1 HI PTT 44.9 Second(s) HI . Radiology results: Radiology Results (Last 48 hours) [id number] -- 07/18/2021 15:00 CR Chest 1 Vw [...] of instructions. Notes: I certify that the MLP/BULKER performed the services as delegated. . documented in this encounter Plan of Treatment Not on file documented as of this encounter Visit Diagnoses Not on filedocumented in this encounter Care Teams Installer Molding And Trim Relationship Specialty Start Date End Date Jay Howell MD [address] [place] [phone] PCP - General Emergency Medicine 11/12/23 documented as of this encounter
--- OUTSIDE RECORDS SUMMARY | 2025-07-24 06:57 | XMS_ITS | Encounter Summary ---
Author Organization [employer] ([place], [place], [place], [place]) Address [address] [place] [address] Care Team Providers Care Transformation Analyst Name Role Phone Jay Howell MD Primary Care Provider [phone] Encounter Details Date Type Department Care Team (Late st Contact Info) Description 08/31/2020 Transcribed Document [facility] [place] [address] [place] [address] ProviderJessie MD [address] [place] [address] Social History Tobacco Use Types Packs/Day Years Used Date Smoking Tobacco: Never Assessed Comments Unknown Sex and Gender Information Value Date Recorded Sex Assigned at Not on file Legal Sex Female 7:30 PM CDT Gender Identity Not on file Sexual Orientation Not on file documented as of this encounter Miscellaneous Notes * Cerner Conversion Note - Jessie Yuen MD - 08/31/2020 9:43 AM ACCOUNTS RECEIVABLE SUPERVISOR Patient: SKYLER MONTOYA Age: 79 years [...] mg, 6 mL, 112 mL/Hr, IV Piggyback, [id number] DuoNeb 0.5 mg-2.5 mg/3 mL inhalation solution: [...] Tab, Oral, Daily, 30 Tab, 0 Refill(s) [place] 7.5 mg-325 mg oral tablet: 1 Tab, [...] mL 300 mg 6 mL, IV Piggyback, [id number] dorzolamide 2% ophth soln 10 mL 1 [...] Confirmed Coronary artery disease / SNOMED CT 7254897128 / Confirmed Stented coronary artery / SNOMED CT 1758413339 / Confirmed High blood pressure / SNOMED CT 36219245 / Confirmed Hyperlipidemia / SNOMED CT 42111627 / Confirmed COPD / SNOMED CT 73437464 / Confirmed GERD - Gastro-esophageal reflux disease / SNOMED CT 9514108073 / Confirmed Multiple renal cysts / SNOMED CT 164860631 / Confirmed Arthritis / SNOMED CT 7372167 / Confirmed Diabetes mellitus / SNOMED CT 579751069 / Confirmed Emphysema / SNOMED CT 097977512 / Confirmed Apnea, sleep / SNOMED CT 004183889 / Confirmed Hx of pulmonary embolus / SNOMED CT 012539401 / Confirmed Chronic anticoagulation / SNOMED CT 983574170 / Confirmed Atrial fibrillation with RVR / SNOMED CT 5427212872 / Confirmed Chest pain / SNOMED CT 35901747 / Complaint of History of obstructive sleep apnea / IMO 66948723 / Confirmed Resolved: UTI - Urinary tract infection / SNOMED CT 8661771938 Canceled: History of obstructive sleep apnea / IMO 77463495, Active Problems (20) Apnea, sleep Arthritis Atrial [...] based on INR Electronically signed by [facility] Conversion Master In Chancery Cerner at 02/04/2023 2:09 PM CDT documented in this encounter Plan of Treatment Not on file documented as of this encounter Visit Diagnoses Not on filedocumented in this encounter Care Teams Transformation Analyst Relationship Specialty Start Date End Date Jay Howell MD [address] [place] [phone] PCP - General Emergency Medicine 11/12/23 documented as of this encounter
--- OUTSIDE RECORDS SUMMARY | 2025-07-24 06:57 | XMS_ITS | Encounter Summary ---
Author Organization [employer] ([place], [place], [place], [place]) Address [address] [place] [address] Care Team Providers Care Clinical Account Manager Name Role Phone Jay Howell MD Primary Care Provider [phone] Encounter Details Date Type Department Care Team (Late st Contact Info) Description 09/22/2020 Transcribed Document [facility] [address] [place] [address] ProviderJessie MD [address] [place] [address] Social History Tobacco Use Types Packs/Day Years Used Date Smoking Tobacco: Never Assessed Comments Unknown Sex and Gender Information Value Date Recorded Sex Assigned at Not on file Legal Sex Female 7:30 PM CDT Gender Identity Not on file Sexual Orientation Not on file documented as of this encounter Miscellaneous Notes * Cerner Conversion Note - Historical ProviderMD - 09/22/2020 4:56 PM BRAIDED BAND ASSEMBLER Patient: SKYLER MONTOYA Age: 79 Years Sex: [...] present starting at the level of the OFFICE RN. Non significant, non-flow restricting plaque noted at common femoral artery. 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 There is a significant (50-75%) stenosis of the distal OFFICE RN. Non significant, non-flow restricting plaque noted at DPA. OFFICE RN & DPA non compressible for FERNIE. TBI: Non compressible. LEFT: Abnormal arterial runoff disease present starting at the level of the OFFICE RN. Non significant, non-flow restricting plaque noted at common femoral artery. There is a severe (>75%) stenosis of the distal OFFICE RN. OFFICE RN & DPA non compressible for FERNIE. TBI: Non compressible. documented in this encounter Plan of Treatment Not on file documented as of this encounter Visit Diagnoses Not on filedocumented in this encounter Care Teams Clinical Account Manager Relationship Specialty Start Date End Date Jay Howell MD [address] [place] [phone] PCP - General Emergency Medicine 11/12/23 documented as of this encounter
--- OUTSIDE RECORDS SUMMARY | 2025-07-24 06:57 | XMS_ITS | Encounter Summary ---
Author Organization [employer] ([place], [place], [place], [place]) Address [address] [place] [address] Care Team Providers Care Speech Therapy Assistant Name Role Phone Jay Howell MD Primary Care Provider [phone] Encounter Details Date Type Department Care Team (Late st Contact Info) Description 07/18/2021 Transcribed Document [facility] [place] Family Medicine [facility] [place] [address] ProviderJessie MD [address] [place], [place] [address] Social History Tobacco Use Types Packs/Day Years [...] : 3 - Urgent Tracking Group : [facility] ED CHETAN BRASWELL RN-Resource - 07/18/2021 [...] 15:12:21 EDT) Problems(Active) Apnea, sleep (SNOMED CT :781143533 ) Name of Problem: Apnea, sleep ; Recorder: JUAN LUIS GIL RN; Confirmation: Confirmed ; Classification: Medical ; Code: [id number] ; Contributor System: PowerChart ; Last Updated: 11/12/2014 10:12 EST ; Life Cycle Date: 11/12/2014 ; Life Cycle Status: Active ; Vocabulary: SNOMED CT Arthritis (SNOMED CT :6279844 ) Name of Problem: Arthritis ; Recorder: KENYON CHAMBERS RN; Confirmation: Confirmed ; Classification: Medical ; Code: [id number] ; Contributor System: PowerChart ; Last Updated: 04/10/2016 8:04 EDT ; Life Cycle Date: 08/13/2013 ; Life Cycle Status: Active ; Vocabulary: SNOMED CT Atrial fibrillation with RVR (SNOMED CT :2863304163 ) Name of Problem: Atrial fibrillation with RVR ; Recorder: SANG RICO APRN; Confirmation: Confirmed ; Classification: Medical ; Code: [id number] ; Contributor System: PowerChart ; Last Updated: 04/10/2016 8:05 EDT ; Life Cycle Date: 04/10/2016 ; Life Cycle Status: Active ; Responsible Provider: SANG RICO APRN; Vocabulary: SNOMED CT Blood clot (SNOMED CT :107397122 ) Name of Problem: Blood clot ; Recorder: KENYON CHAMBERS RN; Confirmation: Confirmed ; Classification: Patient Stated ; Code: [id number] ; Contributor System: PowerChart ; Last Updated: [...] Vocabulary: Patient Care Chest pain (SNOMED CT :11654966 ) Name of Problem: Chest pain ; Recorder: SANG RICO APRN; Confirmation: Complaint of ; Classification: Medical ; Code: 78567335 ; Contributor System: PowerChart ; Last Updated: 04/10/2016 8:05 EDT ; Life Cycle Status: Active ; Responsible Provider: SANG RICO APRN; Vocabulary: SNOMED CT Chronic anticoagulation (SNOMED CT :850058284 ) Name of Problem: Chronic anticoagulation ; Recorder: SANG RICO APRN; Confirmation: Confirmed ; Classification: Medical ; Code: 027148739 ; Contributor System: LifeBioChart ; Last Updated: 04/10/2016 8:05 EDT ; Life Cycle Date: 04/10/2016 ; Life Cycle Status: Active ; Responsible Provider: SANG RICO APRN; Vocabulary: SNOMED CT Clotting disorder (SNOMED CT :205700459 ) Name of Problem: Clotting disorder ; Recorder: KENYON CHAMBERS RN; Confirmation: Confirmed ; Classification: Patient Stated ; Code: 991893047 ; Contributor System: PowerChart ; Last Updated: 03/28/2014 19:29 EDT ; Life Cycle Date: 08/13/2013 ; Life Cycle Status: Active ; Vocabulary: SNOMED CT COPD (SNOMED CT :87775958 ) Name of Problem: COPD ; Recorder: KENYON CHAMBERS RN; Confirmation: Confirmed ; Classification: Medical ; Code: 54486901 ; Contributor System: PowerChart ; Last Updated: 04/10/2016 8:03 EDT ; Life Cycle Date: 08/13/2013 ; Life Cycle Status: Active ; Vocabulary: SNOMED CT Coronary artery disease (SNOMED CT :5819239523 ) Name of Problem: Coronary artery disease ; Recorder: KENYON CHAMBERS RN; Confirmation: Confirmed ; Classification: Medical ; Code: 9382643728 ; Contributor System: LifeBioChart ; Last Updated: 04/10/2016 8:03 EDT ; Life Cycle Date: 08/13/2013 ; Life Cycle Status: Active ; Vocabulary: SNOMED CT Diabetes mellitus (SNOMED CT :259845116 ) Name of Problem: Diabetes mellitus ; Recorder: KENYON CHAMBERS RN; Confirmation: Confirmed ; Classification: Medical ; Code: 761007328 ; Contributor System: LifeBioChart ; Last Updated: 04/10/2016 8:04 EDT ; Life Cycle Date: 08/13/2013 ; Life Cycle Status: Active ; Vocabulary: SNOMED CT Emphysema (SNOMED CT :151616051 ) Name of Problem: Emphysema ; Recorder: JUAN LUIS GIL RN; Confirmation: Confirmed ; Classification: Medical ; Code: 800912772 ; Contributor System: PowerChart ; Last Updated: 11/12/2014 10:11 EST ; Life Cycle Date: 11/12/2014 ; Life Cycle Status: Active ; Vocabulary: SNOMED CT GERD - Gastro-esophageal reflux disease (SNOMED CT :0988571107 ) Name of Problem: GERD - Gastro-esophageal reflux disease ; Recorder: KENYON CHAMBERS RN; Confirmation: Confirmed ; Classification: Medical ; Code: 7263679688 ; Contributor System: PowerChart ; Last Updated: [...] Patient Care High blood pressure (SNOMED CT :64365343 ) Name of Problem: High blood pressure ; Recorder: KENYON CHAMBERS RN; Confirmation: Confirmed ; Classification: Medical ; Code: 03108948 ; Contributor System: PowerChart ; Last Updated: 04/10/2016 8:03 EDT ; Life Cycle Date: 08/13/2013 ; Life Cycle Status: Active ; Vocabulary: SNOMED CT History of obstructive sleep apnea (IMO :19252431 ) Name of Problem: History of obstructive sleep apnea ; Recorder: SYSTEM, SYSTEM; Confirmation: Confirmed ; Classification: Medical ; Code: 35032083 ; Last Updated: 08/25/2020 18:21 EST ; Life Cycle Date: 08/25/2020 ; Life Cycle Status: Active ; Vocabulary: IMO Hx of pulmonary embolus (SNOMED CT :210238449 ) Name of Problem: Hx of pulmonary embolus ; Recorder: SANG RICO APRN; Confirmation: Confirmed ; Classification: Medical ; Code: 930332954 ; Contributor System: PowerChart ; Last Updated: 04/10/2016 8:05 EDT ; Life Cycle Date: 04/10/2016 ; Life Cycle Status: Active ; Responsible Provider: SANG RICO APRN; Vocabulary: SNOMED CT Hyperlipidemia (SNOMED CT :02714099 ) Name of Problem: Hyperlipidemia ; Recorder: KENYON CHAMBERS RN; Confirmation: Confirmed ; Classification: Medical ; Code: 64217134 ; Contributor System: PowerChart ; Last Updated: 04/10/2016 8:03 EDT ; Life Cycle Date: 08/13/2013 ; Life Cycle Status: Active ; Vocabulary: SNOMED CT Multiple renal cysts (SNOMED CT :091899234 ) Name of Problem: Multiple renal cysts ; Recorder: KENYON CHAMBERS RN; Confirmation: Confirmed ; Classification: Medical ; Code: 130813266 ; Contributor System: LifeBioChart ; Last Updated: 04/10/2016 8:04 EDT ; Life Cycle Date: 08/13/2013 ; Life Cycle Status: Active ; Vocabulary: SNOMED CT Stented coronary artery (SNOMED CT :9150818172 ) Name of Problem: Stented coronary artery ; Recorder: KENYON CHAMBERS RN; Confirmation: Confirmed ; Classification: Medical ; Code: 3905308992 ; Contributor System: LifeBioChart ; Last Updated: 04/10/2016 8:03 EDT ; Life Cycle Date: 08/13/2013 ; Life Cycle Status: Active ; Vocabulary: SNOMED CT Diagnoses(Active) Chest pain Date: 07/18/2021 ; Diagnosis Type: Reason For Visit ; Confirmation: Complaint of ; Clinical Dx: Chest pain ; Classification: Medical ; Clinical Service: Emergency medicine ; Code: PNED ; Probability: 0 ; Diagnosis Code: [id number] ED Height and Weight Height Source : Stated Height Entry Format : [place] Height, Feet : 5 ft(Converted to: 152 cm, 60 Inch) Height, Inches : 3 Inch(Converted to: 0 ft 3 Inch, 7.62 cm) Clinical Height : 160.02 cm Weight Source, ED : Critical estimated dosing weight Weight Entry Format : [place] Weight, Pounds : 154 lb Clinical Dosing Weight : 70 kg Body Surface Area (BSA) : 1.73 m2 Body Mass Index : 27.3 kg/m2 (HI) [place] Body Weight (IBW) : 52.02 kg CHETAN [...] filedocumented in this encounter Care Teams Speech Therapy Assistant Relationship Specialty Start Date End Date Jay Howell MD [address] [place] [phone] PCP - General Emergency Medicine 11/12/23 documented as of this encounter
--- OUTSIDE RECORDS SUMMARY | 2025-07-24 06:57 | XMS_ITS | Encounter Summary ---
Author Organization [employer] ([place], [place], [place], [place]) Address [address] [place] [address] Care Team Providers Care Brand Ambassador Name Role Phone Jay Howell MD Primary Care Provider [phone] Encounter Details Date Type Department Care Team (Late st Contact Info) Description 08/31/2020 Transcribed Document [facility] [place] Family Medicine [address] [place] [address] ProviderJessie MD [address] [place] [address] Social History Tobacco Use Types Packs/Day Years Used Date Smoking Tobacco: Never Assessed Comments Unknown Sex and Gender Information Value Date Recorded Sex Assigned at Not on file Legal Sex Female 7:30 PM CDT Gender Identity Not on file Sexual Orientation Not on file documented as of this encounter Miscellaneous Notes * Cerner Conversion Note - Jessie Yuen MD - 08/31/2020 10:44 AM LATEXER Patient: SKYLER MONTOYA Age: 79 years Sex: [...] level of muscle per surgery *Operation RIGHT RISK CONTROL CONSULTANT access - ultrasound guided Aortogram with LEFT lower extremity run-off LEFT PT angioplasty ([id number] Nanocross) LEFT peroneal angioplasty (2.5-9o432ue Nanocross) RIGHT RISK CONTROL CONSULTANT closure (Angioseal) LEFT leg debridement 08/31/20 seen [...] Level 3.8 mmol/L 08/30/2020 04:13 MICRO: ACC: [id number] ORDER: Culture Anaerobic DATE: 08/26/2020 13:56 SOURCE: Surgical Swab SITE: Leg Lower L Reports Final 08/31/2020 07:45 No Anaerobic growth Pre 08/28/2020 07:01 No Anaerobic growth Pre 08/27/2020 07:47 Culture in progress == ACC: [id number] ORDER: Culture Blood DATE: 08/25/2020 05:01 SOURCE: Blood SITE: Reports Final 08/30/2020 06:01 No growth at 5 days. Pre 08/29/2020 06:01 No growth at 4 days. Pre 08/28/2020 06:01 No growth at 3 days. Pre 08/27/2020 06:01 No growth at 2 days. Pre 08/26/2020 06:01 No growth at 1 day. Pre 08/25/2020 23:02 Culture less than 24 Hrs old == ACC: [id number] ORDER: Culture Blood DATE: 08/25/2020 05:01 SOURCE: Blood SITE: Reports Final 08/30/2020 06:01 No growth at 5 days. Pre 08/29/2020 06:02 No growth at 4 days. Pre 08/28/2020 06:01 No growth at 3 days. Pre 08/27/2020 06:01 No growth at 2 days. Pre 08/26/2020 06:01 No growth at 1 day. Pre 08/25/2020 23:02 Culture less than 24 Hrs old == ACC: [id number] ORDER: Culture Wound and Stain DATE: 08/26/2020 15:23 SOURCE: Surgical Swab SITE: Leg Lower L Reports Final 08/29/2020 08:29 No growth Pre 08/27/2020 07:14 No growth GS 08/26/2020 18:13 Few White Blood Cells No organisms seen. == ACC: [id number] ORDER: Culture Wound and Stain DATE: 08/25/2020 05:00 SOURCE: Wound SITE: Leg Lower L Reports Final 08/28/2020 08:57 No growth Pre 08/26/2020 06:23 No growth GS 08/25/2020 07:26 No organisms seen. Few White Blood Cells Rare epithelial cells == ACC: [id number] ORDER: Culture AFB and Stain DATE: 08/26/2020 13:56 SOURCE: Surgical Swab SITE: Leg Lower L Reports AFS 08/27/2020 13:07 No Acid Fast Bacilli seen == ACC: [id number] ORDER: Culture Fungus DATE: 08/26/2020 13:56 SOURCE: [...] closely after discharge Electronically signed by Sivan [facility] Conversion [facility]opedics Pediatric Physician Cerner at 02/04/2023 2:11 PM CDT documented in this encounter Plan of Treatment Not on file documented as of this encounter Visit Diagnoses Not on filedocumented in this encounter Care Teams Brand Ambassador Relationship Specialty Start Date End Date Jay Howell MD [address] [place] [phone] PCP - General Emergency Medicine 11/12/23 documented as of this encounter
--- OUTSIDE RECORDS SUMMARY | 2025-07-24 06:57 | XMS_ITS | Encounter Summary ---
Author Organization [employer] ([place], [place], [place], [place]) Address [address] [place] [address] Care Team Providers Care Community Engagement Representative Name Role Phone Jay Howell MD Primary Care Provider [phone] Encounter Details Date Type Department Care Team (Late st Contact Info) Description 12/12/2018 Transcribed Document [facility] Family Medicine [address] [place] [address] ProviderJessie MD [address] [place] [address] Social History Tobacco Use Types [...] - Historical ProviderMD - 12/12/2018 10:41 PM LIBRARY CIRCULATION CLERK [address] [place], [place] [id number] PERSON INFORMATION Name SKYLER MONTOYA Age 77 Years 1940 Sex Female Language Zimbabwean PCP TARA CHEN (REF), -MED Marital Status Med Service Emergency Medicine Acct# Arrival 12/12/2018 20:58:00 Visit Reason Chest pain; CHEST PAIN FOR LAST 2HRS Acuity 2 - Emergent LOS 000 01:43 Depart Date: 02/26/19 10:41 PM Address: [place] [address] Comment: PROVIDER INFORMATION Provider Role Assigned Unassigned [...] please contact the Patient Resource Center at [phone]. With: Address: When: Follow-up with your engagement specialist in the morning. Return to the closest emergency department for any acute new concerns or recurrence of symptoms. Within in AM With: Address: When: TARA CHEN [address] [facility] [place] [address] Business (1) Within 2 to 3 days Comment: documented in this encounter Plan of Treatment Not on file documented as of this encounter Visit Diagnoses Not on filedocumented in this encounter Care Teams Community Engagement Representative Relationship Specialty Start Date End Date Jay Howell MD [address] [place] [phone] PCP - General Emergency Medicine 11/12/23 documented as of this encounter
--- OUTSIDE RECORDS SUMMARY | 2025-07-24 06:57 | XMS_ITS | Encounter Summary ---
Author Organization [employer] ([place], [place], [place], [place]) Address [address] [place] [address] Care Team Providers Care Fisher Eel Spear Name Role Phone Jay Howell MD Primary Care Provider [phone] Encounter Details Date Type Department Care Team (Late st Contact Info) Description 12/12/2018 Transcribed Document [facility] [place] Family Medicine [address] [place] [address] ProviderJessie MD [address] [place], [place] [address] Social History Tobacco Use Types Packs/Day Years Used Date Smoking Tobacco: Never Assessed Comments Unknown Sex and Gender Information Value Date Recorded Sex Assigned at Not on file Legal Sex Female 7:30 PM CDT Gender Identity Not on file Sexual Orientation Not on file documented as of this encounter Miscellaneous Notes * Cerner Conversion Note - Jessie ProviderMD - 12/12/2018 10:41 PM BOX ATTACHER [address] [place] [address] Patient Information Name: SKYLER MONTOYA [...] please contact the Patient Resource Center at [phone]. With: Address: When: Follow-up with your professor of physics in the morning. Return to the closest emergency department for any acute new concerns or recurrence of symptoms. Within in AM With: Address: When: TARA CHEN [address] [place] [address] [address] [place], [place] [address] [facility] (1) Within 2 to 3 days [...] physical activity. It especially occurs in the spareribs trimmer hours. What are the causes? Atherosclerosis is [...] 10/03/2006 Document Revised: 03/16/2017 Document Reviewed: 02/04/2015 [employer] Patient Education ? 2017 [employer] Allergies: Macrodantin; morphine; nitrofurantoin Medication Information: [...] range between ( 0.0 and 7.0 ) [place] #: 0.65 K/uL -- Normal range between ( 0.16 and 1.00 ) [place] #: 0.00 x10(3)/uL -- Normal range between ( 0.00 and 0.80 ) [place] %: 10.7 % -- Normal range between [...] verify that SKYLER MONTOYA was seen at [facility] Emergency Department on ,12/12/2018 22:41:24. This [...] along the way. As a healthcare provider, [facility] recommends that you stop smoking. Assistance with quitting is available by contacting 3-473-SGQS-NOW. This is a free resource providing counseling, [...] Electronic Communications Privacy Act 18 U.S.C. ???Sections 5160-1252,?? and contain information intended for the specified [...] Be sure to sign up for the [facility] patient portal, which gives you 09/05 access to your medical information ??? including these discharge instructions ??? using your computer, smartphone, or tablet. Just go to [place] to get started. Questions? Call . Acknowledgment [...] Instructions: Emergency Physician: Electronically signed by Sivan, [facility] Conversion Proposal Consultant Cerner at 02/04/2023 1:56 PM CDT documented in this encounter Plan of Treatment Not on file documented as of this encounter Visit Diagnoses Not on filedocumented in this encounter Care Teams Fisher Eel Spear Relationship Specialty Start Date End Date Jay Howell MD [address] [place] [phone] PCP - General Emergency Medicine 11/12/23 documented as of this encounter
--- OUTSIDE RECORDS SUMMARY | 2025-07-24 06:57 | XMS_ITS | Encounter Summary ---
Author Organization [employer] ([place], [place], [place], [place]) Address [address] [place] [address] Care Team Providers Care Navy Diver Name Role Phone Jay Howell MD Primary Care Provider [phone] Encounter Details Date Type Department Care Team (Late st Contact Info) Description 09/01/2020 Transcribed Document [facility] [place] Family Medicine [address] [place] [address] ProviderJessie MD [address] [place] [address] Social History Tobacco Use Types Packs/Day Years Used Date Smoking Tobacco: Never Assessed Comments Unknown Sex and Gender Information Value Date Recorded Sex Assigned at Not on file Legal Sex Female 7:30 PM CDT Gender Identity Not on file Sexual Orientation Not on file documented as of this encounter Miscellaneous Notes * Cerner Conversion Note - Jessie Yuen MD - 09/01/2020 9:57 AM SILK BRUSHER TARA CHEN, [address] [place] [address] Re: SKYLER MONTOYA Date of Visit: 08/25/2020 [...] is strictly prohibited. Sincerely, KAREN PUTNAM [address] [facility] [address] [place] [id number] The following document(s) were included in the letter: September 01, 2020 09:27:18 EST - (09/01/2020) Discharge Note documented in this encounter Plan of Treatment Not on file documented as of this encounter Visit Diagnoses Not on filedocumented in this encounter Care Teams Navy Diver Relationship Specialty Start Date End Date Jay Howell MD [address] [place] [phone] PCP - General Emergency Medicine 11/12/23 documented as of this encounter
--- OUTSIDE RECORDS SUMMARY | 2025-07-24 06:57 | XMS_ITS | Encounter Summary ---
Author Organization [employer] ([place], [place], [place], [place]) Address [address] [place] [address] Care Team Providers Care Turnaround Planner Name Role Phone Jay Howell MD Primary Care Provider [phone] Encounter Details Date Type Department Care Team (Late st Contact Info) Description 09/01/2020 Transcribed Document [facility] [place] Family Medicine [address] [place] [address] ProviderJessie MD [address] [place] [address] Social History Tobacco Use Types Packs/Day Years Used Date Smoking Tobacco: Never Assessed Comments Unknown Sex and Gender Information Value Date Recorded Sex Assigned at Not on file Legal Sex Female 7:30 PM CDT Gender Identity Not on file Sexual Orientation Not on file documented as of this encounter Miscellaneous Notes * Cerner Conversion Note - Jessie Yuen MD - 09/01/2020 10:55 AM INDEPENDENT MARKETING CONSULTANT Patient: SKYLER MONTOYA Age: 79 years Sex: [...] level of muscle per surgery *Operation RIGHT HOG GRADER access - ultrasound guided Aortogram with LEFT lower extremity run-off LEFT PT angioplasty (2.5-8b079dq Nanocross) LEFT peroneal angioplasty (2.5-2e743sn Nanocross) RIGHT HOG GRADER closure (Angioseal) LEFT leg debridement 09/01/20 probable [...] Results Found (Past 24 Hours) MICRO: ACC: [id number] ORDER: Culture Anaerobic DATE: 08/26/2020 13:56 SOURCE: Surgical Swab SITE: Leg Lower L Reports Final 08/31/2020 07:45 No Anaerobic growth Pre 08/28/2020 07:01 No Anaerobic growth Pre 08/27/2020 07:47 Culture in progress == ACC: [id number] ORDER: Culture Blood DATE: 08/25/2020 05:01 SOURCE: Blood SITE: Reports Final 08/30/2020 06:01 No growth at 5 days. Pre 08/29/2020 06:01 No growth at 4 days. Pre 08/28/2020 06:01 No growth at 3 days. Pre 08/27/2020 06:01 No growth at 2 days. Pre 08/26/2020 06:01 No growth at 1 day. Pre 08/25/2020 23:02 Culture less than 24 Hrs old == ACC: [id number] ORDER: Culture Blood DATE: 08/25/2020 05:01 SOURCE: Blood SITE: Reports Final 08/30/2020 06:01 No growth at 5 days. Pre 08/29/2020 06:02 No growth at 4 days. Pre 08/28/2020 06:01 No growth at 3 days. Pre 08/27/2020 06:01 No growth at 2 days. Pre 08/26/2020 06:01 No growth at 1 day. Pre 08/25/2020 23:02 Culture less than 24 Hrs old == ACC: [id number] ORDER: Culture Wound and Stain DATE: 08/26/2020 15:23 SOURCE: Surgical Swab SITE: Leg Lower L Reports Final 08/29/2020 08:29 No growth Pre 08/27/2020 07:14 No growth GS 08/26/2020 18:13 Few White Blood Cells No organisms seen. == ACC: [id number] ORDER: Culture Wound and Stain DATE: 08/25/2020 05:00 SOURCE: Wound SITE: Leg Lower L Reports Final 08/28/2020 08:57 No growth Pre 08/26/2020 06:23 No growth GS 08/25/2020 07:26 No organisms seen. Few White Blood Cells Rare epithelial cells == ACC: [id number] ORDER: Culture AFB and Stain DATE: 08/26/2020 13:56 SOURCE: Surgical Swab SITE: Leg Lower L Reports AFS 08/27/2020 13:07 No Acid Fast Bacilli seen == ACC: [id number] ORDER: Culture Fungus DATE: 08/26/2020 13:56 SOURCE: [...] signed by Sivan, [facility] Conversion Bottle House Cleaners Supervisor Cerner at 02/04/2023 1:59 PM CDT documented in this encounter Plan of Treatment Not on file documented as of this encounter Visit Diagnoses Not on filedocumented in this encounter Care Teams Turnaround Planner Relationship Specialty Start Date End Date Jay Howell MD [address] [place] [phone] PCP - General Emergency Medicine 11/12/23 documented as of this encounter
--- OUTSIDE RECORDS SUMMARY | 2025-07-24 06:57 | XMS_ITS | Encounter Summary ---
Author Organization [employer] ([place], [place], [place], [place]) Address [address] [place] [address] Care Team Providers Care Commercial Property Administrator Name Role Phone Jay Howell MD Primary Care Provider [phone] Encounter Details Date Type Department Care Team (Late st Contact Info) Description 03/19/2021 Transcribed Document [facility] [place] Family Medicine [address] [place] [address] ProviderJessie MD [address] [place] [address] Social History Tobacco Use Types Packs/Day Years [...] filedocumented in this encounter Care Teams Commercial Property Administrator Relationship Specialty Start Date End Date Jay Howell MD [address] [place] [phone] PCP - General Emergency Medicine 11/12/23 documented as of this encounter
--- OUTSIDE RECORDS SUMMARY | 2025-07-24 06:57 | XMS_ITS | Encounter Summary ---
Author Organization [employer] ([place], [place], [place], [place]) Address [address] [place] [address] Care Team Providers Care Fiber Technician Name Role Phone Jay Howell MD Primary Care Provider [phone] Encounter Details Date Type Department Care Team (Late st Contact Info) Description 12/12/2018 Transcribed Document [facility] [place] [address] [place] [address] ProviderJessie MD [address] [place] [address] Social History Tobacco Use Types Packs/Day Years Used Date Smoking Tobacco: Never Assessed Comments Unknown Sex and Gender Information Value Date Recorded Sex Assigned at Not on file Legal Sex Female 7:30 PM CDT Gender Identity Not on file Sexual Orientation Not on file documented as of this encounter Miscellaneous Notes * Cerner Conversion Note - Historical ProviderMD - 12/12/2018 9:44 PM TELEVISION NEWSCAST DIRECTOR Patient: SKYLER MONTOYA Age: 77 years Sex: [...] L arm. reports seen bt card in [place] for same earlier this week, reports she [...] and was advised to follow-up with her sausage tier. She had labs done this morning, but [...] wants to go home and see her sausage tier tomorrow. Review of Systems Additional review of [...] normal sinus rhythm, No ST changes, normal [place] & QRS intervals, EP Interp. [...] % 36.4 % Lymph # 2.22 x10(3)/uL [place] % 10.7 % HI [place] # 0.65 K/uL [place]os % 0.0 % [...] evaluation at any time. Advised follow-up with sausage tier in the morning and return to the closest ER for any recurrence or worsening of symptoms.. Impression and Plan Diagnosis Chest pain - Discharge, Medical Plan Condition: Stable. Patient was given the following educational materials: Angina Pectoris. Follow up with: TARA CHEN Within 2 to 3 days; Follow-up with your sausage tier in the morning. Return to the closest emergency department for any acute new concerns or recurrence of symptoms. Within in AM. Counseled: Patient, Family, Regarding diagnosis, Regarding diagnostic results, Regarding treatment plan, Patient indicated understanding of instructions. documented in this encounter Plan of Treatment Not on file documented as of this encounter Visit Diagnoses Not on filedocumented in this encounter Care Teams Fiber Technician Relationship Specialty Start Date End Date Jay Howell MD [address] [place] [phone] PCP - General Emergency Medicine 11/12/23 documented as of this encounter
--- OUTSIDE RECORDS SUMMARY | 2025-07-24 06:57 | XMS_ITS | Encounter Summary ---
Author Organization [employer] ([place], [place], [place], [place]) Address [address] [place] [address] Care Team Providers Care Green Chain Marker Name Role Phone Jay Howell MD Primary Care Provider [phone] Encounter Details Date Type Department Care Team (Late st Contact Info) Description 12/12/2018 Transcribed Document [facility] [place] Medicine [address] [place] [address] ProviderJessie MD [address] [place] [address] Social History Tobacco Use Types Packs/Day Years Used Date Smoking Tobacco: Never Assessed Comments Unknown Sex and Gender Information Value Date Recorded Sex Assigned at Not on file Legal Sex Female 7:30 PM CDT Gender Identity Not on file Sexual Orientation Not on file documented as of this encounter Miscellaneous Notes * Cerner Conversion Note - Historical ProviderMD - 12/12/2018 8:58 PM SOCIAL SERVICES DESIGNEE ED Triage Entered On: 12/12/2018 21:20 EST Performed On: 12/12/2018 21:18 EST by LUCINDA FOFANA RN ED Triage Across the Room Triage Date/Time : 12/12/2018 21:18 EST Chief Complaint : pt c/o [facility]scp x 2 hours rad to neck & L arm. reports seen bt card in [place] for same earlier this week, reports she needs a cath LUCINDA FOFANA RN - 12/12/2018 21:18 EST DCP GENERIC CODE Tracking Acuity : 2 - Emergent Tracking Group : [facility] ED LUCINDA FOFANA RN - 12/12/2018 [...] 21:20:38 EST) Problems(Active) Apnea, sleep (SNOMED CT :446326646 ) Name of Problem: Apnea, sleep ; Recorder: JUAN LUIS GIL RN; Confirmation: Confirmed ; Classification: Medical ; Code: [id number] ; Contributor System: PowerChart ; Last Updated: 11/12/2014 10:12 EST ; Life Cycle Date: 11/12/2014 ; Life Cycle Status: Active ; Vocabulary: SNOMED CT Arthritis (SNOMED CT :2798353 ) Name of Problem: Arthritis ; Recorder: KENYON CHAMBERS RN; Confirmation: Confirmed ; Classification: Medical ; Code: 1005887 ; Contributor System: PowerChart ; Last Updated: 04/10/2016 8:04 EDT ; Life Cycle Date: 08/13/2013 ; Life Cycle Status: Active ; Vocabulary: SNOMED CT Atrial fibrillation with RVR (SNOMED CT :2412506872 ) Name of Problem: Atrial fibrillation with RVR ; Recorder: SANG RICO APR; Confirmation: Confirmed ; Classification: Medical ; Code: [id number] ; Contributor System: PowerChart ; Last Updated: 04/10/2016 8:05 EDT ; Life Cycle Date: 04/10/2016 ; Life Cycle Status: Active ; Responsible Provider: SANG RICO APR; Vocabulary: SNOMED CT Blood clot (SNOMED CT :560100979 ) Name of Problem: Blood clot ; Recorder: KENYON CHAMBERS RN; Confirmation: Confirmed ; Classification: Patient Stated ; Code: 005312474 ; Contributor System: PowerChart ; Last Updated: [...] Vocabulary: Patient Care Chest pain (SNOMED CT :72722237 ) Name of Problem: Chest pain ; Recorder: SANG RICO APR; Confirmation: Complaint of ; Classification: Medical ; Code: 96378726 ; Contributor System: PowerChart ; Last Updated: 04/10/2016 8:05 EDT ; Life Cycle Status: Active ; Responsible Provider: SANG RICO APR; Vocabulary: SNOMED CT Chronic anticoagulation (SNOMED CT :923047533 ) Name of Problem: Chronic anticoagulation ; Recorder: SANG RICO APR; Confirmation: Confirmed ; Classification: Medical ; Code: 422226668 ; Contributor System: PowerChart ; Last Updated: 04/10/2016 8:05 EDT ; Life Cycle Date: 04/10/2016 ; Life Cycle Status: Active ; Responsible Provider: SANG RICO APR; Vocabulary: SNOMED CT Clotting disorder (SNOMED CT :915131526 ) Name of Problem: Clotting disorder ; Recorder: KENYON CHAMBERS RN; Confirmation: Confirmed ; Classification: Patient Stated ; Code: 257440236 ; Contributor System: PowerChart ; Last Updated: 03/28/2014 19:29 EDT ; Life Cycle Date: 08/13/2013 ; Life Cycle Status: Active ; Vocabulary: SNOMED CT COPD (SNOMED CT :96910775 ) Name of Problem: COPD ; Recorder: KENYON CHAMBERS RN; Confirmation: Confirmed ; Classification: Medical ; Code: 17228840 ; Contributor System: PowerChart ; Last Updated: 04/10/2016 8:03 EDT ; Life Cycle Date: 08/13/2013 ; Life Cycle Status: Active ; Vocabulary: SNOMED CT Coronary artery disease (SNOMED CT :2171373922 ) Name of Problem: Coronary artery disease ; Recorder: KENYON CHAMBERS RN; Confirmation: Confirmed ; Classification: Medical ; Code: 8332262321 ; Contributor System: PowerChart ; Last Updated: 04/10/2016 8:03 EDT ; Life Cycle Date: 08/13/2013 ; Life Cycle Status: Active ; Vocabulary: SNOMED CT Diabetes mellitus (SNOMED CT :081254907 ) Name of Problem: Diabetes mellitus ; Recorder: KENYON CHAMBERS RN; Confirmation: Confirmed ; Classification: Medical ; Code: 011533327 ; Contributor System: PowerChart ; Last Updated: 04/10/2016 8:04 EDT ; Life Cycle Date: 08/13/2013 ; Life Cycle Status: Active ; Vocabulary: SNOMED CT Emphysema (SNOMED CT :964803432 ) Name of Problem: Emphysema ; Recorder: JUAN LUIS GIL RN; Confirmation: Confirmed ; Classification: Medical ; Code: 699730978 ; Contributor System: PowerChart ; Last Updated: 11/12/2014 10:11 EST ; Life Cycle Date: 11/12/2014 ; Life Cycle Status: Active ; Vocabulary: SNOMED CT GERD - Gastro-esophageal reflux disease (SNOMED CT :8636452594 ) Name of Problem: GERD - Gastro-esophageal reflux disease ; Recorder: KENYON CHAMBERS RN; Confirmation: Confirmed ; Classification: Medical ; Code: 1601915438 ; Contributor System: PowerChart ; Last Updated: [...] Patient Care High blood pressure (SNOMED CT :93421691 ) Name of Problem: High blood pressure ; Recorder: KENYON CHAMBERS RN; Confirmation: Confirmed ; Classification: Medical ; Code: 49160379 ; Contributor System: aroundthewayChart ; Last Updated: 04/10/2016 8:03 EDT ; Life Cycle Date: 08/13/2013 ; Life Cycle Status: Active ; Vocabulary: SNOMED CT Hx of pulmonary embolus (SNOMED CT :586736157 ) Name of Problem: Hx of pulmonary embolus ; Recorder: SANG RICO APR; Confirmation: Confirmed ; Classification: Medical ; Code: 878973478 ; Contributor System: PowerChart ; Last Updated: 04/10/2016 8:05 EDT ; Life Cycle Date: 04/10/2016 ; Life Cycle Status: Active ; Responsible Provider: SANG RICO APR; Vocabulary: SNOMED CT Hyperlipidemia (SNOMED CT :49448038 ) Name of Problem: Hyperlipidemia ; Recorder: KENYON CHAMBERS RN; Confirmation: Confirmed ; Classification: Medical ; Code: 15176243 ; Contributor System: PowerChart ; Last Updated: 04/10/2016 8:03 EDT ; Life Cycle Date: 08/13/2013 ; Life Cycle Status: Active ; Vocabulary: SNOMED CT Multiple renal cysts (SNOMED CT :449861979 ) Name of Problem: Multiple renal cysts ; Recorder: KENYON CHAMBERS RN; Confirmation: Confirmed ; Classification: Medical ; Code: 232156122 ; Contributor System: PowerChart ; Last Updated: 04/10/2016 8:04 EDT ; Life Cycle Date: 08/13/2013 ; Life Cycle Status: Active ; Vocabulary: SNOMED CT Stented coronary artery (SNOMED CT :1573461497 ) Name of Problem: Stented coronary artery ; Recorder: KENYON CHAMBERS RN; Confirmation: Confirmed ; Classification: Medical ; Code: 0647039570 ; Contributor System: PowerChart ; Last Updated: 04/10/2016 8:03 EDT ; Life Cycle Date: 08/13/2013 ; Life Cycle Status: Active ; Vocabulary: SNOMED CT UTI - Urinary tract infection (SNOMED CT :4408269289 ) Name of Problem: UTI - Urinary tract infection ; Recorder: KENYON CHAMBERS RN; Confirmation: Confirmed ; Classification: Medical ; Code: 9370270366 ; Contributor System: PowerChart ; Last Updated: 04/10/2016 8:04 EDT ; Life Cycle Date: 08/13/2013 ; Life Cycle Status: Active ; Vocabulary: SNOMED CT Diagnoses(Active) Chest pain Date: 12/12/2018 ; Diagnosis Type: Reason For Visit ; Confirmation: Complaint of ; Clinical Dx: Chest pain ; Classification: Medical ; Clinical Service: Emergency medicine ; Code: PNED ; Probability: 0 ; Diagnosis Code: [id number] ED Height and Weight Height Source : Stated Height Entry Format : [place] Height, Feet : 5 ft(Converted to: 152 cm, 60 Inch) Height, Inches : 3 Inch(Converted to: 0 ft 3 Inch, 7.62 cm) Clinical Height : 160.02 cm Weight Source, ED : Standing scale Weight Entry Format : [place] Weight, Pounds : 161.7 lb Clinical Dosing Weight : 73.5 kg Body Surface Area (BSA) : 1.77 m2 Body Mass Index : 28.7 kg/m2 (HI) [place] Body Weight (IBW) : 52.02 kg LUCINDA FOFANA RN - 12/12/2018 21:18 EST Electronically signed by Sivan, [facility] Conversion Director Of Research Center Cerner at 02/04/2023 1:58 PM CDT documented in this encounter Plan of Treatment Not on file documented as of this encounter Visit Diagnoses Not on filedocumented in this encounter Care Teams Green Chain Marker Relationship Specialty Start Date End Date Jay Howell MD [address] [place] [phone] PCP - General Emergency Medicine 11/12/23 documented as of this encounter
--- OUTSIDE RECORDS SUMMARY | 2025-07-24 06:57 | XMS_ITS | Encounter Summary ---
Author Organization [email or web address] ([place], [place], [place], [place]) Address [address] [place] [address] Care Team Providers Care Wage Analyst Name Role Phone Jay Howell MD Primary Care Provider [phone] Encounter Details Date Type Department Care Team (Late st Contact Info) Description 07/18/2021 Transcribed Document [facility] [place] [address] [place] [address] ProviderJessie MD [address] [place] [id number] Social History Tobacco Use Types Packs/Day Years [...] 07/18/2021 8:15 PM CDT Electronically signed by [facility] Conversion Fern Cutter Cerner at 02/04/2023 2:03 PM CDT documented in this encounter Plan of Treatment Not on file documented as of this encounter Visit Diagnoses Not on filedocumented in this encounter Care Teams Wage Analyst Relationship Specialty Start Date End Date Jay Howell MD [address] [place] [phone] PCP - General Emergency Medicine 11/12/23 documented as of this encounter
--- OUTSIDE RECORDS SUMMARY | 2025-07-24 06:57 | XMS_ITS | Encounter Summary ---
Author Organization [employer] ([place], [place], [place], [place]) Address [address] [place] [address] Care Team Providers Care Radiology Receptionist Name Role Phone Jay Howell MD Primary Care Provider [phone] Encounter Details Date Type Department Care Team (Late st Contact Info) Description 03/19/2021 Transcribed Document [facility] [place] Medicine [address] [place] [address] ProviderJessie MD [address] [place], [place] [id number] Social History Tobacco Use Types Packs/Day Years [...] on filedocumented in this encounter Care Teams Radiology Receptionist Relationship Specialty Start Date End Date Jay Howell MD [address] [place] [phone] PCP - General Emergency Medicine 11/12/23 documented as of this encounter
--- OUTSIDE RECORDS SUMMARY | 2025-07-24 06:57 | XMS_ITS | Encounter Summary ---
Author Organization [employer] ([place], [place], [place], [place]) Address [address] [place] [address] Care Team Providers Care Corrugator Name Role Phone Jay Howell MD Primary Care Provider [phone] Encounter Details Date Type Department Care Team (Late st Contact Info) Description 09/01/2020 Transcribed Document [facility] [place] [address] [place] [address] ProviderJessie MD [address] [place], [place] 14[address] Social History Tobacco Use Types Packs/Day Years Used Date Smoking Tobacco: Never Assessed Comments Unknown Sex and Gender Information Value Date Recorded Sex Assigned at Not on file Legal Sex Female 7:30 PM CDT Gender Identity Not on file Sexual Orientation Not on file documented as of this encounter Miscellaneous Notes * Cerner Conversion Note - Jessie Yuen MD - 09/01/2020 9:47 AM CLAY MIXER [address] , [place], [place] [phone] Patient Copy Patient Information: Name: SKYLER MONTOYA Current Date: 09/01/2020 09:47:45 : 1940 Patient Address: [address] [place] [phone] Patient Attending Physician: SARAH CONTEH MD Primary Care Provider: TARA CHEN (REF), -MED Primary Care Provider Discharge Diagnosis: Cellulitis of leg; Hematoma of left lower leg Weight on Admission: 152 lb, 0 oz Comment: Follow-up Instructions: With: Address: When: KAVITHA HIDALGO [address] [facility], [address] [place], [place] [id number] Business (1) In 2 days 09/03/2020 Comments: needs apt scheduled prior to DC With: Address: When: TARA CHEN [address] [place] [address] Business (1) Within 2 days Comments: needs INR check We have held your Aspirin per vascular surgeon, Dr. Verde. With: Address: When: KAELA ORTAKALI [facility], [address] [place] [address] Business (1) 12:30 PM Comments: F/u w/ FERNIE With: Address: When: KAELA VERDE [facility], [address] [place], [place] [phone] Business (1) 12:45 PM Comments: F/u W with Irina Troy PA-C Discharge Instructions: Immunizations Documented During Stay: No Immunizations Found Heart Failure Discharge Instructions (if any): Stroke Related Discharge Instructions (if any): Warfarin Related Discharge Instructions (if any): Final Medication List: [facility], [address] [facility] [[email or web address] [address] [place], [place] [id number], [phone] amLODIPine (Norvasc 10 mg oral tablet) 1 [...] At Bedtime as needed for anxiety/sleep. acetaminophen-hydrocodone ([place] 7.5 mg-325 mg oral tablet) 1 [...] these instructions at home: Medicines ??? Take jplo-huv-egghble and prescription medicines only as told by [...] 03/21/2009 Document Revised: 02/22/2019 Document Reviewed: 02/22/2019 TrueAbility Patient Education ? 2019 [employer] [place]. What You Need to Know About Warfarin [...] other medicines or supplements? Many prescription and xyhe-gur-ghvsrop medicines can interfere with warfarin. Talk with your health care provider or your pharmacist before starting or stopping any new medicines. This includes avqv-erm-nrhfpco vitamins, dietary supplements, herbal medicines, and pain medicines. Your warfarin dosage may need to be adjusted. ??? Some common exkv-mao-xfhybsy medicines that may increase the risk of [...] that you work with a diet and software qa system specialist (dietitian). ??? Vitamin K decreases the [...] cooked. ??? Collards, raw or cooked. ??? Gabonese chard, raw or cooked. ??? Mustard greens, raw or cooked. ??? Turnip greens, raw or cooked. ??? Parsley, raw. ??? Broccoli, cooked. ??? Noodles, eggs, and spinach, enriched. ??? [place] Pk sprouts, raw or cooked. ??? Beet greens, [...] diet. ??? You start or stop any mwao-iwi-kkrkqpo medicine, prescription medicine, or dietary supplement. ??? [...] Reviewed: 12/29/2016 Elsevier Patient Education ? 2020 [employer] Inc. Hematoma A hematoma is a collection [...] health care provider. General instructions ??? Take rwmr-nbn-bgjlhsn and prescription medicines only as told by [...] 05/17/2005 Document Revised: 03/08/2019 Document Reviewed: 03/08/2019 TrueAbility Patient Education ? 2020 [employer] Inc. CIGARETTE SMOKING: The facts are clear, cigarette smoking will shorten your life. Smoking can cause many illnesses along the way. As a healthcare provider, we recommend that you stop smoking. Assistance with quitting is available by contacting 6-083-CDAT-NOW. This is a free resource providing counseling, [...] Be sure to sign up for the [facility] patient portal, which gives you 09/05 access to your medical information ??? including these discharge instructions ??? using your computer, smartphone, or tablet. Just go to [employer] to get started. Questions? Call . [facility] would like to thank you for allowing us to assist you with your healthcare needs. MICHELE Skaggs JUDY D, (or junior sales representative) have received the above patient education materials/instructions and have verbalized understanding: Patient Signature _ Date/Time Patient Jig Grinder Signature (if needed) Date/Time Clinician/Hospital Jig Grinder Signature (if needed) Date/Time Electronically signed by Interface, [facility] Conversion Prospecting Observer Cerner at 02/04/2023 2:01 PM CDT documented in this encounter Plan of Treatment Not on file documented as of this encounter Visit Diagnoses Not on filedocumented in this encounter Care Teams Corrugator Relationship Specialty Start Date End Date Jay Howell MD [address] [place] [phone] PCP - General Emergency Medicine 11/12/23 documented as of this encounter
--- OUTSIDE RECORDS SUMMARY | 2025-07-24 06:57 | XMS_ITS | Encounter Summary ---
Author Organization [employer] ([place], [place], [place], [place]) Address [address] [place] [address] Care Team Providers Care Rotary Furnace Operator Name Role Phone Jay Howell MD Primary Care Provider [phone] Encounter Details Date Type Department Care Team (Late st Contact Info) Description 03/19/2021 Transcribed Document [facility] [place] Family Medicine [address] [place] [address] ProviderJessie MD [address] [place] [address] Social History Tobacco Use Types Packs/Day [...] Yuen MD - 03/19/2021 2:50 PM CDT [facility] [place] [address] SKYLER MONTOYA :1940 Visit Time:03/17/2021 Your Visit Summary Your Care Team Admitting Physician - MARIA ELENA DAVALOS MD-[facility] Attending Physician - SARAH CONTEH MD Primary [...] or [place] ( Hand Surgery) on d/c. [phone] Activity: Discharge Activity: Activity as tolerated Diet: Discharge Diet: Heart healthy diet Driving Restriction: Do Not Drive due to fainting episode until your doctor says you can Follow-Up Appointments Follow Up with ANDERSON CARRASCO MD When Within 3 to 5 days Comments for ortho eval for fracture wrist Where: [address] [place] [address]- Follow Up with WOO JOHNSTON When Within 2 to 4 weeks Where: [address] [place] [address] [place] [address]- Business (1) Follow Up with JEFFERSON MENDOZA When Within 6 weeks Comments Patient should call for a follow up appointment with [facility]. Where: [address] [place] [address]- Business (1) Medications What How Much When [...] activities are safe for you. ??? Take jqgj-dbu-wzicmms and prescription medicines only as told by [...] provider. Document Revised: 07/31/2018 Document Reviewed: 03/26/2017 Becual Patient Education ?? 2020 [employer]ual Inc. Near-Syncope Near-syncope is when you suddenly [...] these instructions at home: Medicines ??? Take ohof-njr-mywaiks and prescription medicines only as told by [...] Reviewed: 08/22/2019 Elsevier Patient Education ?? 2020 [employer]. Emergency Awareness and Preventative Care STROKE is [...] Assistance with quitting is available by contacting 6-293-HAWT-NOW. This is a free resource providing counseling, [...] range between ( 0.0 and 7.0 ) [place] #: 0.59 K/uL -- Normal range between ( 0.16 and 1.00 ) [place] #: 0.00 x10(3)/uL -- Normal range between ( 0.00 and 0.80 ) [place] %: 8.9 % -- Normal range between [...] /LPF Urine Bilirubin Dipstick: Negative Urine Specific [place]: 1.015 -- Normal range between ( 1.005 [...] was given the opportunity to ask questions. Patient/Habitat Management Coordinator Name: Patient/Habitat Management Coordinator Signature: Relationship to Patient: Clinician/Hospital Habitat Management Coordinator Signature: Date: Electronically signed by Sivan, [facility] Conversion Medical Record Technician Cerner at 02/04/2023 2:18 PM CDT documented in this encounter Plan of Treatment Not on file documented as of this encounter Visit Diagnoses Not on filedocumented in this encounter Care Teams Rotary Furnace Operator Relationship Specialty Start Date End Date Jay Howell MD [address] [place] [phone] PCP - General Emergency Medicine 11/12/23 documented as of this encounter
--- OUTSIDE RECORDS SUMMARY | 2025-07-24 06:57 | XMS_ITS | Encounter Summary ---
Author Organization [employer] ([place], [place], [place], [place]) Address [address] [place] [address] Care Team Providers Care Admin Secretary Name Role Phone Jay Howell MD Primary Care Provider [phone] Encounter Details Date Type Department Care Team (Late st Contact Info) Description 09/01/2020 Transcribed Document [facility] [place] Family Medicine [address] [place] [address] ProviderJessie MD [address] [place] [address] Social History Tobacco Use Types Packs/Day Years Used Date Smoking Tobacco: Never Assessed Comments Unknown Sex and Gender Information Value Date Recorded Sex Assigned at Not on file Legal Sex Female 7:30 PM CDT Gender Identity Not on file Sexual Orientation Not on file documented as of this encounter Miscellaneous Notes * Cerner Conversion Note - Jessie ProviderMD - 09/01/2020 1:18 PM VP DIRECTOR OF FINANCE On Going Discharge Planning Entered On: 09/01/2020 13:19 EST Performed On: 09/01/2020 13:18 EST by KAVITA PELLETIER RN-Dictating Machine TranscriberCt Manager Progress Note Discharge Arrangements : Patient Post-Acute Information Patient Name: SKYLER MONTOYA Gender: Female : 38 Age: 79 Years [place] Referral(s): Service: Organization: Business Address: Phone Number: [address], [address] Discharge Options Discussed with Patient [...] Attend Multidisciplinary Rounds? : Yes KAVITA PELLETIER RN-Dictating Machine Transcriber - 09/01/2020 13:18 EST Electronically signed by [facility], [facility] Conversion Conduit Mechanic Cerner at 02/04/2023 2:00 PM CDT documented in this encounter Plan of Treatment Not on file documented as of this encounter Visit Diagnoses Not on filedocumented in this encounter Care Teams Admin Secretary Relationship Specialty Start Date End Date Jay Howell MD [address] [place] [phone] PCP - General Emergency Medicine 11/12/23 documented as of this encounter
--- OUTSIDE RECORDS SUMMARY | 2025-07-24 06:57 | XMS_ITS | Encounter Summary ---
Author Organization [employer] ([place], [place], [place], [place]) Address [address] [place] [address] Care Team Providers Care Grocery Store Bagger Name Role Phone Jay Howell MD Primary Care Provider [phone] Encounter Details Date Type Department Care Team (Late st Contact Info) Description 09/29/2020 Transcribed Document [facility] [place] Family Medicine [address] [place] [address] ProviderJessie MD [address] [place] [address] Social History Tobacco Use Types Packs/Day Years Used Date Smoking Tobacco: Never Assessed Comments Unknown Sex and Gender Information Value Date Recorded Sex Assigned at Not on file Legal Sex Female 7:30 PM CDT Gender Identity Not on file Sexual Orientation Not on file documented as of this encounter Miscellaneous Notes * Cerner Conversion Note - Historical ProviderMD - 09/29/2020 5:14 PM TENNIS CENTRE MANAGER Patient: SKYLER MONTOYA Age: 79 Years Sex: [...] present starting at the level of the LAST SORTER. Non significant, non-flow restricting plaque noted at common femoral artery. 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 There is a significant (50-75%) stenosis of the distal LAST SORTER. Non significant, non-flow restricting plaque noted at DPA. LAST SORTER & DPA non compressible for FERNIE. TBI: Non compressible. LEFT: Abnormal arterial runoff disease present starting at the level of the LAST SORTER. Non significant, non-flow restricting plaque noted at common femoral artery. There is a severe (>75%) stenosis of the distal LAST SORTER. LAST SORTER & DPA non compressible for FERNIE. TBI: Non compressible. documented in this encounter Plan of Treatment Not on file documented as of this encounter Visit Diagnoses Not on filedocumented in this encounter Care Teams Grocery Store Bagger Relationship Specialty Start Date End Date Jay Howell MD [address] [place] [phone] PCP - General Emergency Medicine 11/12/23 documented as of this encounter
--- OUTSIDE RECORDS SUMMARY | 2025-07-24 06:57 | XMS_ITS | Encounter Summary ---
Author Organization [employer] ([place], [place], [place], [place]) Address [address] [place] [address] Care Team Providers Care Drafter Marine Name Role Phone Jay Howell MD Primary Care Provider [phone] Encounter Details Date Type Department Care Team (Late st Contact Info) Description 09/01/2020 Transcribed Document [facility] [place] Family [place] [facility] [place] [address] ProviderJessie MD [address] [place], [place] [address] Social History Tobacco Use Types Packs/Day Years Used Date Smoking Tobacco: Never Assessed Comments Unknown Sex and Gender Information Value Date Recorded Sex Assigned at Not on file Legal Sex Female 7:30 PM CDT Gender Identity Not on file Sexual Orientation Not on file documented as of this encounter Miscellaneous Notes * Cerner Conversion Note - Historical MD Alpa - 09/01/2020 9:27 AM SUGAR REFINER Patient: SKYLER BAUTISTA Age: 79 Years Sex: [...] [1] Summary BILATERAL: Monophasic waveforms of the WAXER OPERATOR, & DPA . Unable to compress WAXER OPERATOR and DPA (>220 mmHg). Toe brachial index: Non-compressible [2] RIGHT: Abnormal arterial runoff disease present starting at the level of the WAXER OPERATOR. Non significant, non-flow restricting plaque noted at common femoral artery. 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 There is a significant (50-75%) stenosis of the distal WAXER OPERATOR. Non significant, non-flow restricting plaque noted at DPA. WAXER OPERATOR & DPA non compressible for FERNIE. TBI: Non compressible. LEFT: Abnormal arterial runoff disease present starting at the level of the WAXER OPERATOR. Non significant, non-flow restricting plaque noted at common femoral artery. There is a severe (>75%) stenosis of the distal WAXER OPERATOR. WAXER OPERATOR & DPA non compressible for FERNIE. [...] multiple stent placements. The patient presented to [facility] ER after recent fall with hematoma [...] Vitamins oral tablet 1 Tab, Oral, Daily Frakes 7.5 mg-325 mg oral tablet 1 Tab, [...] -- Start: 08/26/20 17:14:00 EST, 60 gm carbs:[id number] george, Isolation: Standard Precautions, Instructions: Diabetic Diet [...] Ankle Min 3 Vws LT; Shannon Marquez, Armament Aircraft Mechanic 08/22/2020 21:21 EST [2] [facility]; ERMA ZHENG MD-AMALIA 08/25/2020 11:29 EST [3] [facility]; ERMA ZHENG MD-AMALIA 08/25/2020 11:40 EST [4] MRI Spine Lumbar WO; Leti Wakefield, MULTI MODALITY TECHNOLOGIST 08/25/2020 15:21 EST [5] CT Abdomen WO W; Gus Lopez, BAT CARRIER 08/27/2020 18:06 EST [6] Admission History and Physical; BETH DAVALOS MD-INT 08/25/2020 06:23 EST documented in this encounter Plan of Treatment Not on file documented as of this encounter Visit Diagnoses Not on filedocumented in this encounter Care Teams Drafter Marine Relationship Specialty Start Date End Date Jay Howell MD [address] [place] [phone] PCP - General Emergency Medicine 11/12/23 documented as of this encounter
--- OUTSIDE RECORDS SUMMARY | 2025-07-24 06:57 | XMS_ITS | Encounter Summary ---
Author Organization [employer] ([place], [place], [place], [place]) Address [address] [place] [address] Care Team Providers Care Tree Climber Name Role Phone Jay Howell MD Primary Care Provider [phone] Encounter Details Date Type Department Care Team (Late st Contact Info) Description 07/18/2021 Transcribed Document [facility] [place] Family Medicine [address] [place] [address] ProviderJessie MD [address] [place] [phone] Social History Tobacco Use Types Packs/Day Years [...] filedocumented in this encounter Care Teams Tree Climber Relationship Specialty Start Date End Date Jay Howell MD [address] [place] [phone] PCP - General Emergency Medicine 11/12/23 documented as of this encounter
--- OUTSIDE RECORDS SUMMARY | 2025-07-24 06:57 | XMS_ITS | Encounter Summary ---
Author Organization [employer] ([place], [place], [place], [place]) Address [address] [place] [address] Care Team Providers Care Operations Officer Name Role Phone Jay Howell MD Primary Care Provider [phone] Encounter Details Date Type Department Care Team (Late st Contact Info) Description 12/12/2018 Transcribed Document [facility] [place] Family Medicine [address] [place] [address] ProviderJessie MD [address] [place], [place] [phone] Social History Tobacco Use Types Packs/Day Years Used Date Smoking Tobacco: Never Assessed Comments Unknown Sex and Gender Information Value Date Recorded Sex Assigned at Not on file Legal Sex Female 7:30 PM CDT Gender Identity Not on file Sexual Orientation Not on file documented as of this encounter Miscellaneous Notes * Cerner Conversion Note - Historical ProviderMD - 12/12/2018 10:20 PM PSYCHOLOGY ASSISTANT Electronically signed by [facility], [facility] Conversion Wreath And Garland Maker Hand Cerner at 02/04/2023 1:59 PM CDT documented in this encounter Plan of Treatment Not on file documented as of this encounter Visit Diagnoses Not on filedocumented in this encounter Care Teams Operations Officer Relationship Specialty Start Date End Date Jay Howell MD [address] [place] [phone] PCP - General Emergency Medicine 11/12/23 documented as of this encounter
--- OUTSIDE RECORDS SUMMARY | 2025-07-24 06:57 | XMS_ITS | Encounter Summary ---
Author Organization [employer] ([place], [place], [place], [place]) Address [address] [place] [address] Care Team Providers Care Reservation Agent Name Role Phone Jay Howell MD Primary Care Provider [phone] Encounter Details Date Type Department Care Team (Late st Contact Info) Description 07/18/2021 Transcribed Document [facility] [place] [facility] [place] [address] ProviderJessie MD [address] [place], [place] [address] Social History Tobacco Use Types Packs/Day Years [...] Momo, Hiesha, RN - 07/18/2021 20:32 EDT Electronically signed by Gayle Finnegan Conversion Scale Assembly Set Up Worker Cerner at 02/04/2023 2:17 PM CDT documented in this encounter Plan of Treatment Not on file documented as of this encounter Visit Diagnoses Not on filedocumented in this encounter Care Teams Reservation Agent Relationship Specialty Start Date End Date Jay Howell MD [address] [place] [phone] PCP - General Emergency Medicine 11/12/23 documented as of this encounter
--- OUTSIDE RECORDS SUMMARY | 2025-07-24 06:57 | XMS_ITS | Encounter Summary ---
Author Organization [employer] ([place], [place], [place], [place]) Address [address] [place] [address] Care Team Providers Care Multimedia Editor Name Role Phone Jay Howell MD Primary Care Provider [phone] Encounter Details Date Type Department Care Team (Late st Contact Info) Description 09/01/2020 Transcribed Document [facility] [place] Family Medicine [address] [place] [address] ProviderJessie MD [address] [place] [address] Social History Tobacco Use Types [...] Jessie Yuen MD - 09/01/2020 2:22 PM MANAGER INSIDE [facility] [place] [id number] SKYLER MONTOYA :1940 Visit Time:08/25/2020 Your Visit [...] next 5 days. NEW RX Provided. STOP Paulding 7.5/325 mg tablets --- NEW RX Provided for 5/325 mg tablets --- Take one or the other - Do not take both. Discharge Activity: Discharge Activity: No heavy lifting over 10 lbs, Avoid Strenuous Activity Until: for 1 week Follow-Up Appointments Follow Up with KAELA VERDE When 09/29/2020 12:30 PM EST Comments F/u w/ FERNIE Where: [place] [address] [place] [phone]- Business (1) Follow Up with KAELA VERDE When 09/08/2020 12:45 PM EST Comments F/u [facility] with Irina Troy PA-C Where: [facility] [address] [place] [address]- Business (1) Follow Up with TARA CHEN When 09/05/2020 12:20 PM EST Comments needs INR check///We have held your Aspirin per vascular surgeon, Dr. Verde///Appointment has been made Where: [address] [address]- Business (1) Follow Up with KAVITHA HIDALGO When 09/03/2020 02:30 PM EST Comments Appointment has been made Where: [address] [place] [address]- Business (1) Medications What How Much When Instructions Next Dose amoxicillin-clavulanate (amoxicillin-clavulanate 875 mg-125 mg oral tablet) 1 Tablet(s) Oral Every 12 hours Duration: 3 Day(s) Pickup at [facility] Tuesday09/01/2020 9:00 PM clopidogrel (Plavix 75 mg oral tablet) 1 Tablet(s) Oral Every Day Pickup at [facility] Tuesday09/02/2020 9:00 AM doxycycline (Vibramycin 100 mg oral capsule) 1 Capsule(s) Oral Two Times A Day Duration: 3 Day(s) Pickup at [facility] Tuesday09/01/2020 9:00 PM enoxaparin (Lovenox 80 mg/ 0.8 mL injectable solution) 70 Milligram(s) SubCutaneous Every 12 hours Duration: 5 Day(s) Pickup at [facility] Tuesday09/01/2020 9:00 PM lactobacillus acidophilus (lactobacillus acidophilus oral tablet) 2 Tablet(s) Oral Every Day Duration: 28 Day(s) Pickup at [facility] Tuesday09/02/2020 9:00 AM terbinafine (terbinafine 250 mg oral tablet) 1 Tablet(s) Oral Every Day Duration: 6 weeks Pickup at [facility] [place] 09/02/2020 9:00 AM ALPRAZolam (Xanax 0.5 mg oral tablet) 1 Tablet(s) Oral At Bedtime as needed for for anxiety/sleep acetaminophen-hydrocodone (Paulding 5 mg-325 mg oral tablet) 1 Tablet(s) Oral Every 4 Hours as needed for for pain NEW DOSE. New RX Provided. amLODIPine (Norvasc 10 mg oral tablet) 1 Tablet(s) Oral Every Day Pickup at [facility] Tuesday09/02/2020 9:00 AM atorvastatin (atorvastatin 80 mg oral tablet) 1 Tablet(s) Oral At Bedtime Pickup at [facility] Tuesday09/01/2020 9:00 PM carvedilol (carvedilol 6.25 mg oral tablet) 1 Tablet(s) Oral Three Times A Day Tuesday09/01/2020 4:00 PM dorzolamide ophthalmic (dorzolamide 2% ophthalmic solution) 1 Drop(s) Eye Right Two Times A Day Tuesday09/01/2020 9:00 PM hydrALAZINE (hydrALAZINE 100 mg oral tablet) 1 Tablet(s) Oral Two Times A Day NEW DOSE Pickup at [facility] Tuesday09/01/2020 9:00 PM warfarin (Coumadin 3 mg oral tablet) 1 Tablet(s) Oral Every Day Duration: 5 Day(s) NEW DOSE x the next 5 days. INR will be checked in 2 days. Pickup at [facility] Tuesday09/02/2020 9:00 AM losartan (losartan 100 mg [...] A Day Tuesday09/01/2020 9:00 PM Pharmacy Information [facility]: [address] [place], [place] [id number] [phone] Take your medications faithfully. Do NOT skip [...] bag. ??? Soap and water, or hand gum cook. ??? Wound cleanser or salt-water solution (saline). [...] and water are not available, use hand gum cook. 3. Set up a clean station for [...] and water are not available, use hand gum cook. Clean your wound ??? Wear gloves, protective [...] and water are not available, use hand gum cook. Apply new dressing ??? Wear gloves, protective [...] and water are not available, use hand gum cook. 8. Turn the pump back on. The sponge dressing should collapse. Do not change the settings on the machine without talking to a health care provider. 9. Replace the container in the pump that collects fluid if it is full. Replace the container per the label pinker's instructions or at least once a week, [...] clamps are open. ??? Do not use pqcs-vea-yxxxsed medicated or antiseptic creams, sprays, liquids, or [...] 12/25/2012 Document Revised: 01/25/2020 Document Reviewed: 12/21/2019 [employer] Patient Education ?? 2020 [employer] Cellulitis, Adult Cellulitis is a skin [...] these instructions at home: Medicines ??? Take evkd-gom-yvuyblt and prescription medicines only as told by [...] 03/21/2009 Document Revised: 02/22/2019 Document Reviewed: 02/22/2019 [employer] Patient Education ?? 2020 [employer] What You Need to Know About [...] other medicines or supplements? Many prescription and zqlz-aga-ltftjtu medicines can interfere with warfarin. Talk with your health care provider or your pharmacist before starting or stopping any new medicines. This includes rvtr-oum-ysufbwv vitamins, dietary supplements, herbal medicines, and pain medicines. Your warfarin dosage may need to be adjusted. ??? Some common aabk-rbb-cvzvhxg medicines that may increase the risk of [...] that you work with a diet and nutrition professor (dietitian). ??? Vitamin K decreases the effect [...] cooked. ??? Collards, raw or cooked. ??? Greenlandic chard, raw or cooked. ??? Mustard greens, raw or cooked. ??? Turnip greens, raw or cooked. ??? Parsley, raw. ??? Broccoli, cooked. ??? Noodles, eggs, and spinach, enriched. ??? [place] sprouts, raw or cooked. ??? Beet greens, [...] diet. ??? You start or stop any xlgt-qcf-zcfohow medicine, prescription medicine, or dietary supplement. ??? [...] 10/03/2006 Document Revised: 05/16/2018 Document Reviewed: 12/29/2016 [employer] Patient Education ?? 2020 [employer]. Hematoma A hematoma is a collection of [...] health care provider. General instructions ??? Take rjmk-iod-vkuqwmh and prescription medicines only as told by [...] Assistance with quitting is available by contacting 0-244-RMYI-NOW. This is a free resource providing counseling, support, and referral. Or you may contact your personal physician. [employer] Suicide Prevention Lifeline: The National Suicide Prevention [...] range between ( 0.0 and 7.0 ) Gallia #: 0.64 K/uL -- Normal range between ( 0.16 and 1.00 ) Eos #: 0.11 x10(3)/uL -- Normal range between ( 0.00 and 0.80 ) Gallia %: 10.7 % -- Normal range between [...] was given the opportunity to ask questions. Patient/Software Engineering Specialist Name: Patient/Software Engineering Specialist Signature: Relationship to Patient: Clinician/Hospital Software Engineering Specialist Signature: Date: Electronically signed by Sivan, [facility] Conversion Deaf/Hard Of Hearing Specialist Cerner at 02/04/2023 2:00 PM CDT documented in this encounter Plan of Treatment Not on file documented as of this encounter Visit Diagnoses Not on filedocumented in this encounter Care Teams Multimedia Editor Relationship Specialty Start Date End Date Jay Howell MD [address] [place] [phone] PCP - General Emergency Medicine 11/12/23 documented as of this encounter
--- OUTSIDE RECORDS SUMMARY | 2025-07-24 06:57 | XMS_ITS | Encounter Summary ---
Author Organization [employer] ([place], [place], [place], [place]) Address [address] [place] [address] Care Team Providers Care Floral Designer Salesperson Name Role Phone Jay Howell MD Primary Care Provider [phone] Encounter Details Date Type Department Care Team (Late st Contact Info) Description 03/19/2021 Transcribed Document [facility] [place] [address] [place] [address] ProviderJessie MD [address] [place] [address] Social History Tobacco Use Types Packs/Day Years [...] 2. Calcification of the vertebral origins with xbtd-xv-ukwhlvbp stenosis. 3. Extensive vascular calcification. 4. Severe [...] up with hand surgery next week, her solar sales assessor in 2-4 weeks and neurologist 4-8 weeks. [...] Comer or Anabell on March 23 or [facility] - Within 6 weeks Discharge Medications (14) [...] 03/17/21 10:56:00 EDT, Cardiac Diet, 60 gm carbs:8675-9851 george, Isolation: Standard Precautions, Instructions: Diabetic Diet Patient Discharge Summary Orders Discharge Follow Up Instructions: Follow Up Instructions: f/u Dr. Comer or Anabell ( Hand Surgery) on d/c. [phone] Activity: Discharge Activity: Activity as tolerated Diet: [...] Date End Date Jay Howell MD [address] [place] [phone] PCP - General Emergency Medicine 11/12/23 documented as of this encounter
--- OUTSIDE RECORDS SUMMARY | 2025-07-24 06:57 | XMS_ITS | Encounter Summary ---
Author Organization [employer] ([place], [place], [place], [place]) Address [address] [place] [address] Care Team Providers Care Intermodal Truck Driver Name Role Phone Jay Howell MD Primary Care Provider [phone] Encounter Details Date Type Department Care Team (Late st Contact Info) Description 09/08/2020 Transcribed Document [facility] [place] [address] ProviderJessie MD [address] [place] [address] Social History Tobacco Use Types Packs/Day Years Used Date Smoking Tobacco: Never Assessed Comments Unknown Sex and Gender Information Value Date Recorded Sex Assigned at Not on file Legal Sex Female 7:30 PM CDT Gender Identity Not on file Sexual Orientation Not on file documented as of this encounter Miscellaneous Notes * Cerner Conversion Note - Jessie Yuen MD - 09/08/2020 5:27 PM IMPLEMENTATION CONSULTANT Patient: SKYLER MONTOYA Age: 79 Years Sex: [...] on filedocumented in this encounter Care Teams Intermodal Truck Driver Relationship Specialty Start Date End Date Jay Howell MD [address] [place] [phone] PCP - General Emergency Medicine 11/12/23 documented as of this encounter
--- OUTSIDE RECORDS SUMMARY | 2025-07-24 06:57 | XMS_ITS | Encounter Summary ---
Author Organization [email or web address] ([place], [place], [place], [place]) Address [address] [place] [address] Care Team Providers Care Soap Grinder Name Role Phone Jay Howell MD Primary Care Provider [phone] Encounter Details Date Type Department Care Team (Late st Contact Info) Description 07/18/[address] [facility] [place] Family Medicine [address] [place] [address] ProviderJessie MD [address] [place], [place] [phone] Social History Tobacco Use Types Packs/Day Years [...] on filedocumented in this encounter Care Teams Soap Grinder Relationship Specialty Start Date End Date Jay Howell MD [address] [place] [phone] PCP - General Emergency Medicine 11/12/23 documented as of this encounter
--- OUTSIDE RECORDS SUMMARY | 2025-07-24 06:57 | XMS_ITS | Encounter Summary ---
Author Organization [email or web address] ([place], [place], [place], [place]) Address [address] [place] [address] Care Team Providers Care Head Bucker Name Role Phone Jay Howell MD Primary Care Provider [phone] Encounter Details Date Type Department Care Team (Late st Contact Info) Description 09/15/2020 Transcribed Document [facility] [place] Family Medicine [address] [place] [address] ProviderJessie MD [address] [place] [address] Social History Tobacco Use Types Packs/Day Years Used Date Smoking Tobacco: Never Assessed Comments Unknown Sex and Gender Information Value Date Recorded Sex Assigned at Not on file Legal Sex Female 7:30 PM CDT Gender Identity Not on file Sexual Orientation Not on file documented as of this encounter Miscellaneous Notes * Cerner Conversion Note - Jessie Yuen MD - 09/15/2020 4:06 PM ISOTOPE TECHNOLOGIST Patient: SKYLER MONTOYA Age: 79 Years Sex: [...] present starting at the level of the RESIDENCY DIRECTOR. Non significant, non-flow restricting plaque noted at common femoral artery. 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 There is a significant (50-75%) stenosis of the distal RESIDENCY DIRECTOR. Non significant, non-flow restricting plaque noted at DPA. RESIDENCY DIRECTOR & DPA non compressible for FERNIE. TBI: Non compressible. LEFT: Abnormal arterial runoff disease present starting at the level of the RESIDENCY DIRECTOR. Non significant, non-flow restricting plaque noted at common femoral artery. There is a severe (>75%) stenosis of the distal RESIDENCY DIRECTOR. RESIDENCY DIRECTOR & DPA non compressible for FERNIE. TBI: Non compressible. Electronically signed by Sivan [facility] Conversion Mercerizer Cerner at 02/04/2023 2:21 PM CDT documented in this encounter Plan of Treatment Not on file documented as of this encounter Visit Diagnoses Not on filedocumented in this encounter Care Teams Head Bucker Relationship Specialty Start Date End Date Jay Howell MD [address] [place] [phone] PCP - General Emergency Medicine 11/12/23 documented as of this encounter
--- OUTSIDE RECORDS SUMMARY | 2025-07-24 06:57 | XMS_ITS | Encounter Summary ---
Author Organization [employer] ([place], [place], [place], [place]) Address [address] [place] [address] Care Team Providers Care Technology Project Manager Name Role Phone Jay Howell MD Primary Care Provider [phone] Encounter Details Date Type Department Care Team (Late st Contact Info) Description 08/31/2020 Transcribed Document [facility] [place] [address] [place] [address] ProviderJessie MD [address] [place] [address] Social History Tobacco Use Types Packs/Day Years Used Date Smoking Tobacco: Never Assessed Comments Unknown Sex and Gender Information Value Date Recorded Sex Assigned at Not on file Legal Sex Female 7:30 PM CDT Gender Identity Not on file Sexual Orientation Not on file documented as of this encounter Miscellaneous Notes * Cerner Conversion Note - Jessie Yuen MD - 08/31/2020 8:53 AM ORGANIZATIONAL PSYCHOLOGIST Patient: SKYLER MONTOYA Age: 79 years Sex: [...] for this consult, Miladys Lopez, KellD PGY-1 Strategic Communications Specialist Pager #: [phone] Extension #: [phone] Electronically signed by Sivan [facility] Conversion Theatre Professor Cerner at 02/04/2023 2:02 PM CDT documented in this encounter Plan of Treatment Not on file documented as of this encounter Visit Diagnoses Not on filedocumented in this encounter Care Teams Technology Project Manager Relationship Specialty Start Date End Date Jay Howell MD [address] [place] [phone] PCP - General Emergency Medicine 11/12/23 documented as of this encounter
--- OUTSIDE RECORDS SUMMARY | 2025-07-24 06:57 | XMS_ITS | Encounter Summary ---
Author Organization [employer] ([place], [place], [place], [place]) Address [address] [place] [address] Care Team Providers Care User Interface Artist Name Role Phone Jay Howell MD Primary Care Provider [phone] Encounter Details Date Type Department Care Team (Late st Contact Info) Description 03/19/2021 Transcribed Document [facility] [place] [facility] [place] [address] ProviderJessie MD [address] [place], [place] [address] Social History Tobacco Use Types Packs/Day Years [...] Sivan, [facility] Conversion Boardmarker Cerner at 02/04/2023 2:13 PM CDT documented in this encounter Plan of Treatment Not on file documented as of this encounter Visit Diagnoses Not on filedocumented in this encounter Care Teams User Interface Artist Relationship Specialty Start Date End Date Jay Howell MD [address] [place] [phone] PCP - General Emergency Medicine 11/12/23 documented as of this encounter
--- OUTSIDE RECORDS SUMMARY | 2025-07-24 06:57 | XMS_ITS | Encounter Summary ---
Author Organization [facility] ([place], [place], [place], [place]) Address [address] [place] [address] Care Team Providers Care [address] Production General Manager Name Role Phone Jay Howell MD Primary Care Provider [phone] Encounter Details Date Type Department Care Team (Late st Contact Info) Description 09/01/2020 Transcribed Document [facility] [place] [address] [place] [address] ProviderJessie MD [address] [place] [address] Social History Tobacco Use Types Packs/Day Years Used Date Smoking Tobacco: Never Assessed Comments Unknown Sex and Gender Information Value Date Recorded Sex Assigned at Not on file Legal Sex Female 7:30 PM CDT Gender Identity Not on file Sexual Orientation Not on file documented as of this encounter Miscellaneous Notes * Cerner Conversion Note - Jessie Yuen MD - 09/01/2020 1:19 PM IMMIGRATION SPECIALIST Final Discharge Planning Entered On: 09/01/2020 13:20 EST Performed On: 09/01/2020 13:19 EST by KAVITA PELLETIER RN-Underwear Hemmer Final Discharge Planning Discharge Arrangements : Patient Post-Acute Information Patient Name: SKYLER MONTOYA Gender: Female : [birth year] Age: 79 Years [place] Referral(s): Service: Organization: Business Address: Phone Number: [address], [address] Patient Offered Choice/Affiliations Explained : [...] Services (Related/SOC within 3 days)- KAVITA PELLETIER RN-Underwear Hemmer - 09/01/2020 13:19 EST Final Narrative Note Final Narrative Note : INR-1.4. Pt will dc home today on Lovenox to bridge Coumadin. Orders for HH to INR sent to [facility] and hui jauregui in intake and of pt's dc home today. F/u appts scheduled with PCP, Vasc, and ID. No other CM needs noted. KAVITA PELLETIER RN-Underwear Hemmer - 09/01/2020 13:19 EST Electronically signed by Sivan, [facility] Conversion Home Theater Installer Cerner at 02/04/2023 2:17 PM CDT documented in this encounter Plan of Treatment Not on file documented as of this encounter Visit Diagnoses Not on filedocumented in this encounter Care Teams Road Production General Manager Relationship Specialty Start Date End Date Jay Howell MD [address] [place] [phone] PCP - General Emergency Medicine 11/12/23 documented as of this encounter
--- OUTSIDE RECORDS SUMMARY | 2025-07-24 06:57 | XMS_ITS | Encounter Summary ---
Author Organization [employer] ([place], [place], [place], [place]) Address [address] [place] [address] Care Team Providers Care Advertising Supervisor Name Role Phone Jay Howell MD Primary Care Provider [phone] Encounter Details Date Type Department Care Team (Late st Contact Info) Description 12/12/2018 Transcribed Document [facility] [place] Family Medicine [address] [place] [address] ProviderJessie MD [address] [place] [address] Social History Tobacco Use Types Packs/Day Years Used Date Smoking Tobacco: Never Assessed Comments Unknown Sex and Gender Information Value Date Recorded Sex Assigned at Not on file Legal Sex Female 7:30 PM CDT Gender Identity Not on file Sexual Orientation Not on file documented as of this encounter Miscellaneous Notes * Cerner Conversion Note - Jessie Yuen MD - 12/12/2018 8:58 PM DRILLING FIELD SPECIALIST ED Assessment Entered On: 12/12/2018 21:53 EST [...] Communication Barrier : None Primary Language : Bermudian Additional Emergency Contact #1 : Johnny Montoya Additional Contact #1 Phone Number : [phone] Additional Contact #1 Relationship : spouse Any [...] Rhythm : Regular Nail Bed Color : [place] Chest Pain : Yes Neck Vein Distention [...] 12/12/2018 21:49 EST Electronically signed by Interface, [facility] Conversion Plastics Repairer Cerner at 02/04/2023 2:13 PM CDT documented in this encounter Plan of Treatment Not on file documented as of this encounter Visit Diagnoses Not on filedocumented in this encounter Care Teams Advertising Supervisor Relationship Specialty Start Date End Date Jay Howell MD [address] [place] [phone] PCP - General Emergency Medicine 11/12/23 documented as of this encounter
--- OUTSIDE RECORDS SUMMARY | 2025-07-24 06:57 | XMS_ITS | Encounter Summary ---
Author Organization [employer] ([place], [place], [place], [place]) Address [address] [place] [address] Care Team Providers Care Export Freight Clerk Name Role Phone Jay Howell MD Primary Care Provider [phone] Encounter Details Date Type Department Care Team (Late st Contact Info) Description 09/04/[address] [facility] [place] [address] [place] [address] ProviderJessie MD [address] [place] [address] Social History Tobacco Use Types Packs/Day Years Used Date Smoking Tobacco: Never Assessed Comments Unknown Sex and Gender Information Value Date Recorded Sex Assigned at Not on file Legal Sex Female 7:30 PM CDT Gender Identity Not on file Sexual Orientation Not on file documented as of this encounter Miscellaneous Notes * Cerner Conversion Note - Historical ProviderMD - 09/04/2020 4:13 AM STAIN WIPER ED Event Note Entered On: 09/04/2020 4:13 EST Performed On: 09/04/2020 4:13 EST by Chinyere Leonard RN ED Event Note ED Event Date/Time : 09/04/2020 2:00 EST ED Description of Event : pt arrived during system downtime; view downtime form Chinyere Leonard RN - 09/04/2020 4:13 EST Electronically signed by Sivan [facility] Conversion Squeegee Tender Cerner at 02/04/2023 2:13 PM CDT documented in this encounter Plan of Treatment Not on file documented as of this encounter Visit Diagnoses Not on filedocumented in this encounter Care Teams Export Freight Clerk Relationship Specialty Start Date End Date Jay Howell MD [address] [place] [phone] PCP - General Emergency Medicine 11/12/23 documented as of this encounter
--- OUTSIDE RECORDS SUMMARY | 2025-07-24 06:57 | XMS_ITS | Encounter Summary ---
Author Organization [email or web address] ([place], [place], [place], [place]) Address [address] [place] [address] Care Team Providers Care Electrifier Operator Name Role Phone Jay Howell MD Primary Care Provider [phone] Encounter Details Date Type Department Care Team (Late st Contact Info) Description 09/08/2020 Transcribed Document [facility] [place] [address] [place] [address] ProviderJessie MD [address] [place] [address] Social History Tobacco Use Types Packs/Day Years Used Date Smoking Tobacco: Never Assessed Comments Unknown Sex and Gender Information Value Date Recorded Sex Assigned at Not on file Legal Sex Female 7:30 PM CDT Gender Identity Not on file Sexual Orientation Not on file documented as of this encounter Miscellaneous Notes * Cerner Conversion Note - Jessie Yuen MD - 09/08/2020 5:17 PM CLEAN RICE BROKER Patient: SKYLER MONTOYA Age: 79 Years Sex: Female : 1940 Reason for Consultation LEFT LE wound History of Present Illness Ms. Montoya is an 79 year-old female who presents to the [facility] for f/u after recent hospitalization. She has [...] lower extremity run-off - LEFT PT angioplasty (2.5-3x143qv Nanocross) - LEFT peroneal angioplasty (2.5-5x575jd Nanocross) - LEFT leg debridement Other: - [...] No labs to review Electronically signed by [facility], [facility] Conversion Antique Auto Museum Maintenance Worker Cerner at 02/04/2023 1:55 PM CDT documented in this encounter Plan of Treatment Not on file documented as of this encounter Visit Diagnoses Not on filedocumented in this encounter Care Teams Electrifier Operator Relationship Specialty Start Date End Date Jay Howell MD [address] [place] [phone] PCP - General Emergency Medicine 11/12/23 documented as of this encounter
--- OUTSIDE RECORDS SUMMARY | 2025-07-24 06:57 | XMS_ITS | Encounter Summary ---
Author Organization [employer] ([place], [place], [place], [place]) Address [address] [place] [address] Care Team Providers Care Database Engineer Name Role Phone Jay Howell MD Primary Care Provider [phone] Encounter Details Date Type Department Care Team (Late st Contact Info) Description 09/04/2020 Transcribed Document [facility] Family Medicine [address] [place] [address] ProviderJessie MD [address] [place] [address] Social History Tobacco Use Types Packs/Day Years Used Date Smoking Tobacco: Never Assessed Comments Unknown Sex and Gender Information Value Date Recorded Sex Assigned at Not on file Legal Sex Female 7:30 PM CDT Gender Identity Not on file Sexual Orientation Not on file documented as of this encounter Miscellaneous Notes * Cerner Conversion Note - Jessie Yuen MD - 09/04/2020 2:10 AM CARDIAC SONOGRAPHER ED Discharge Entered On: 09/04/2020 4:14 EST [...] 09/04/2020 4:14 EST Electronically signed by Sivan, [facility] Conversion Customer Advocacy Manager Cerner at 02/04/2023 2:10 PM CDT documented in this encounter Plan of Treatment Not on file documented as of this encounter Visit Diagnoses Not on filedocumented in this encounter Care Teams Database Engineer Relationship Specialty Start Date End Date Jay Howell MD [address] [place] [phone] PCP - General Emergency Medicine 11/12/23 documented as of this encounter
--- OUTSIDE RECORDS SUMMARY | 2025-07-24 06:58 | XMS_ITS | Encounter Summary ---
Author Organization [employer] ([place], [place], [place], [place]) Address [address] [place] [address] Care Team Providers Care Underwear Hemmer Name Role Phone Jay Howell MD Primary Care Provider [phone] Encounter Details Date Type Department Care Team (Late st Contact Info) Description 08/28/2020 Transcribed Document [facility] [place] Family Medicine [address] [place] [address] ProviderJessie MD [address] [place] [address] Social History Tobacco Use Types Packs/Day Years Used Date Smoking Tobacco: Never Assessed Comments Unknown Sex and Gender Information Value Date Recorded Sex Assigned at Not on file Legal Sex Female 7:30 PM CDT Gender Identity Not on file Sexual Orientation Not on file documented as of this encounter Miscellaneous Notes * Cerner Conversion Note - Historical ProviderMD - 08/28/2020 10:16 AM CRM ANALYST Attempt to Treat, PT Entered On: 08/28/2020 [...] - 08/28/2020 10:27 EST Electronically signed by [facility], [facility] Conversion Tafe Registrar Cerner at 02/04/2023 2:14 PM CDT documented in this encounter Plan of Treatment Not on file documented as of this encounter Visit Diagnoses Not on filedocumented in this encounter Care Teams Underwear Hemmer Relationship Specialty Start Date End Date Jay Howell MD [address] [place] [phone] PCP - General Emergency Medicine 11/12/23 documented as of this encounter
--- OUTSIDE RECORDS SUMMARY | 2025-07-24 06:58 | XMS_ITS | Encounter Summary ---
Author Organization [employer] ([place], [place], [place], [place]) Address [address] [place] [address] Care Team Providers Care Wedding Consultant Name Role Phone Jay Howell MD Primary Care Provider [phone] Encounter Details Date Type Department Care Team (Late st Contact Info) Description 08/27/2020 Transcribed Document [facility] [place] Family Medicine [address] [place] [address] ProviderJessei MD [address] [place] [address] Social History Tobacco Use Types Packs/Day Years Used Date Smoking Tobacco: Never Assessed Comments Unknown Sex and Gender Information Value Date Recorded Sex Assigned at Not on file Legal Sex Female 7:30 PM CDT Gender Identity Not on file Sexual Orientation Not on file documented as of this encounter Miscellaneous Notes * Cerner Conversion Note - Jessie Yuen MD - 08/27/2020 5:54 PM WOOD HEEL FLAP TRIMMER Patient: SKYLER MONTOYA Age: 79 Years Sex: [...] stent placements. The patient presented to [facility] ER after recent fall with hematoma [...] Vitamins oral tablet, 1 Tab, Oral, Daily [place] 7.5 mg-325 mg oral tablet, 1 Tab, [...] (High) 08/27/2020 08:41 EST Electronically signed by [facility], [facility] Conversion Director Of Public Works Cerner at 02/04/2023 2:05 PM CDT documented in this encounter Plan of Treatment Not on file documented as of this encounter Visit Diagnoses Not on filedocumented in this encounter Care Teams Wedding Consultant Relationship Specialty Start Date End Date Jay Howell MD [address] [place] [phone] PCP - General Emergency Medicine 11/12/23 documented as of this encounter
--- OUTSIDE RECORDS SUMMARY | 2025-07-24 06:58 | XMS_ITS | Encounter Summary ---
Author Organization [employer] ([place], [place], [place], [place]) Address [address] [place] [address] Care Team Providers Care Sales Rep Name Role Phone Jay Howell MD Primary Care Provider [phone] Encounter Details Date Type Department Care Team (Late st Contact Info) Description 08/27/2020 Transcribed Document [facility] Family Medicine [address] [place] [address] ProviderJessie MD [address] [place] [address] Social History Tobacco Use Types Packs/Day Years Used Date Smoking Tobacco: Never Assessed Comments Unknown Sex and Gender Information Value Date Recorded Sex Assigned at Not on file Legal Sex Female 7:30 PM CDT Gender Identity Not on file Sexual Orientation Not on file documented as of this encounter Miscellaneous Notes * Cerner Conversion Note - Jessie Yuen MD - 08/27/2020 3:10 PM OVEN OPERATOR On Going Discharge Planning Entered On: 08/27/2020 15:14 EST Performed On: 08/27/2020 15:10 EST by KAVITA PELLETIER RN-Studio ArtistDeputy Fire Chief Progress Note Discharge Arrangements : Patient Post-Acute [...] Meeting Medical Necessity : Yes KAVITA PELLETIER RN-Studio Artist - 08/27/2020 15:10 EST Narrative Progress Note [...] past after her SIMONA and went to [facility] prior to home with HH. She is agreeable to look at list of WIND TURBINE MECHANIC to make an informed decision based on quality and resource use information. Cx's are pending to determine need for IV abx at home. Likely dc in a few days. CM will continue to follow. KAVITA PELLETIER RN-Studio Artist - 08/27/2020 15:10 EST Electronically signed by Sivan [facility] Conversion Merchant Patroller Cerner at 02/04/2023 2:13 PM CDT documented in this encounter Plan of Treatment Not on file documented as of this encounter Visit Diagnoses Not on filedocumented in this encounter Care Teams Sales Rep Relationship Specialty Start Date End Date Jay Howell MD [address] [place] [phone] PCP - General Emergency Medicine 11/12/23 documented as of this encounter
--- OUTSIDE RECORDS SUMMARY | 2025-07-24 06:58 | XMS_ITS | Encounter Summary ---
Author Organization [employer] ([place], [place], [place], [place]) Address [address] [place] [address] Care Team Providers Care Buyer Planner Name Role Phone Jay Howell MD Primary Care Provider [phone] Encounter Details Date Type Department Care Team (Late st Contact Info) Description 08/27/2020 Transcribed Document [facility] [place] Family Medicine [address] [place] [address] ProviderJessie MD [address] [place] [address] Social History Tobacco Use Types Packs/Day Years Used Date Smoking Tobacco: Never Assessed Comments Unknown Sex and Gender Information Value Date Recorded Sex Assigned at Not on file Legal Sex Female 7:30 PM CDT Gender Identity Not on file Sexual Orientation Not on file documented as of this encounter Miscellaneous Notes * Cerner Conversion Note - Historical ProviderMD - 08/27/2020 2:40 PM LINE PAINTING MACHINE OPERATOR WOCN Inpatient Documentation Entered On: 08/27/2020 14:42 [...] Past Medical History/Comorbidities : *Operation 08/26 RIGHT LEAD NEURODIAGNOSTIC TECHNOLOGIST access - ultrasound guided Aortogram with LEFT lower extremity run-off LEFT PT angioplasty ([id number] Nanocross) LEFT peroneal angioplasty (2.5-8i632xt Nanocross) RIGHT LEAD NEURODIAGNOSTIC TECHNOLOGIST closure (Angioseal) LEFT leg debridement WOCN Assessment [...] Ulcer WOCN Wound Pressure Ulcer Documentation : Ndouqlesc-Qniqeo-Knhi Abnormality: Leg Left Lower, Anterior on 08/27/2020 14:38 by Sujata Mckee Rn-Enterostomal I/W/A Present on Admission to Hospital: Yes I/W/A Type: Other: a/p debridement I/W/A Dressing Status: Moist I/W/A Dressing Activity: Assessed, Dressing changed I/W/A Wound Date of Dressing Change: :[id number]:0 I/W/A Wound Bed Description: Full-thickness I/W/A Bed [...] Initial set-up application NPWT Inpatient Start Date: :[id number]:0 NPWT Device Used: Renasys Type of Foam/Gauze Applied: Black Foam Number of Black Foam Gauze Applied: 1 Number of TRAC Pads Applied: 1 NPWT Pressure: Continuous NPWT Pressure Settin NPWT Canister Changed: Yes I/W/A Incision/Wound Healing: Initial WOCN Ostomy Documentation : No ostomy assessments reported. Sujata Mckee Rn-Enterostomal - 08/27/2020 14:40 EST Electronically signed by Sivan [facility] Conversion Director Of Operations For Therapy Cerner at 02/04/2023 1:56 PM CDT documented in this encounter Plan of Treatment Not on file documented as of this encounter Visit Diagnoses Not on filedocumented in this encounter Care Teams Buyer Planner Relationship Specialty Start Date End Date Jay Howell MD [address] [place] [phone] PCP - General Emergency Medicine 11/12/23 documented as of this encounter
--- OUTSIDE RECORDS SUMMARY | 2025-07-24 06:58 | XMS_ITS | Encounter Summary ---
Author Organization [employer] ([place], [place], [place], [place]) Address [address] [place] [address] Care Team Providers Care Director Of Adult Epilepsy Name Role Phone Jay Howell MD Primary Care Provider [phone] Encounter Details Date Type Department Care Team (Late st Contact Info) Description 03/19/[address] [facility] [place] [address] ProviderJessie MD [address] [place] [id number] Social History Tobacco Use Types Packs/Day Years [...] 2. 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 3. Extensive vascular calcification. 4. Severe centrilobular emphysema. CARD: no immediate intervention needed f/u her nuclear physician History of atrial fibrillation, rate controlled. We [...] 03/19/2021 06:06 EDT Electronically signed by Sivan [facility] Conversion Integration Director Cerner at 02/04/2023 2:09 PM CDT documented in this encounter Plan of Treatment Not on file documented as of this encounter Visit Diagnoses Not on filedocumented in this encounter Care Teams Director Of Adult Epilepsy Relationship Specialty Start Date End Date Jay Howell MD [address] [place] [phone] PCP - General Emergency Medicine 11/12/23 documented as of this encounter
--- OUTSIDE RECORDS SUMMARY | 2025-07-24 06:58 | XMS_ITS | Encounter Summary ---
Author Organization [employer] ([place], [place], [place], [place]) Address [address] [place] [address] Care Team Providers Care Mechanical Field Engineer Name Role Phone Jay Howell MD Primary Care Provider [phone] Encounter Details Date Type Department Care Team (Late st Contact Info) Description 08/28/2020 Transcribed Document [facility] Family Medicine [address] [place] [address] ProviderJessie MD [address] [place] [address] Social History Tobacco Use Types Packs/Day Years Used Date Smoking Tobacco: Never Assessed Comments Unknown Sex and Gender Information Value Date Recorded Sex Assigned at Not on file Legal Sex Female 7:30 PM CDT Gender Identity Not on file Sexual Orientation Not on file documented as of this encounter Miscellaneous Notes * Cerner Conversion Note - Historical ProviderMD - 08/28/2020 10:17 AM WEB CONTENT EXECUTIVE Attempt to Treat, OT Entered On: 08/28/2020 [...] 08/28/2020 14:59 EST Electronically signed by Sivan [facility] Conversion Laundry Room Attendant Cerner at 02/04/2023 1:59 PM CDT documented in this encounter Plan of Treatment Not on file documented as of this encounter Visit Diagnoses Not on filedocumented in this encounter Care Teams Mechanical Field Engineer Relationship Specialty Start Date End Date Jay Howell MD [address] [place] [phone] PCP - General Emergency Medicine 11/12/23 documented as of this encounter
--- OUTSIDE RECORDS SUMMARY | 2025-07-24 06:58 | XMS_ITS | Encounter Summary ---
Author Organization [facility] Address [address] [place] [id number] Care Team Providers Care Bakery Technician Name Role Phone Jay Howell MD Primary Care Provider Encounter Details Date Type Department Care Team (Late st Contact Info) Description 07/16/2025 Telephone [facility] [address], [address] [place] [address] [place] [address] Social History Tobacco Use Types Packs/Day Years [...] place to sleep or slept in a group home (including now)? No 08/06/2024 CAGE ASSESSMENT Answer [...] drink first t kathleen in the morning (EYE-ROOF TRUSS BUILDER) to steady your nerves or to get [...] documented as of this encounter Care Teams Bakery Technician Relationship Specialty Start Date End Date Jay Howell MD [address] [place], [place] [address] PCP - General 03/08/21 documented as of this encounter
--- OUTSIDE RECORDS SUMMARY | 2025-07-24 06:58 | XMS_ITS | Encounter Summary ---
Author Organization [employer] ([place], [place], [place], [place]) Address [address] [place] [address] Care Team Providers Care Olive Packer Name Role Phone Jay Howell MD Primary Care Provider [phone] Encounter Details Date Type Department Care Team (Late st Contact Info) Description 08/27/2020 Transcribed Document [facility] Family Medicine [address] [place] [address] ProviderJessie MD [address] [place] [address] Social History Tobacco Use Types Packs/Day Years Used Date Smoking Tobacco: Never Assessed Comments Unknown Sex and Gender Information Value Date Recorded Sex Assigned at Not on file Legal Sex Female 7:30 PM CDT Gender Identity Not on file Sexual Orientation Not on file documented as of this encounter Miscellaneous Notes * Cerner Conversion Note - Historical MD Alpa - 08/27/2020 8:20 AM EXCAVATOR BACKHOE OPERATOR Patient: SKYLER MONTOYA Age: 79 years [...] 08/[address] Verde: *Operation RIGHT CREDIT ASSESSMENT ANALYST access - ultrasound guided Aortogram with LEFT lower extremity run-off LEFT PT angioplasty (2.5-8d139nb Nanocross) LEFT peroneal angioplasty (2.5-1s149op Nanocross) RIGHT CREDIT ASSESSMENT ANALYST closure (Angioseal) LEFT leg debridement 08/27/20 seen [...] Level 8.8 mg/dL 08/27/2020 03:40 MICRO: ACC: [id number] ORDER: Culture Anaerobic DATE: 08/26/2020 13:56 SOURCE: Surgical Swab SITE: Leg Lower L Reports Pre 08/27/2020 07:47 Culture in progress == ACC: [id number] ORDER: Culture Wound and Stain DATE: 08/26/2020 15:23 SOURCE: Surgical Swab SITE: Leg Lower L Reports Pre 08/27/2020 07:14 No growth GS 08/26/2020 18:13 Few White Blood Cells No organisms seen. == ACC: [id number] ORDER: Culture Fungus DATE: 08/26/2020 13:56 SOURCE: Surgical Swab SITE: Leg Lower L Reports SINDI 08/26/2020 16:09 No Fungal elements seen == ACC: [id number] ORDER: Culture Wound and Stain DATE: 08/25/2020 05:00 SOURCE: Wound SITE: Leg Lower L Reports Pre 08/26/2020 06:23 No growth GS 08/25/2020 07:26 No organisms seen. Few White Blood Cells Rare epithelial cells == ACC: [id number] ORDER: Culture Blood DATE: 08/25/2020 05:01 SOURCE: Blood SITE: Reports Pre 08/27/2020 06:01 No growth at 2 days. Pre 08/26/2020 06:01 No growth at 1 day. Pre 08/25/2020 23:02 Culture less than 24 Hrs old == ACC: [id number] ORDER: Culture Blood DATE: 08/25/2020 05:01 SOURCE: Blood SITE: Reports Pre 08/27/2020 06:01 No growth at 2 days. Pre 08/26/2020 06:01 No growth at 1 day. Pre 08/25/2020 23:02 Culture less than 24 Hrs old == Radiology Results (Last 48 hours) [id number] -- 08/25/2020 05:53 MRI Spine Lumbar WO [...] above. Discussed with them. Electronically signed by Gayle Finnegan Conversion Assistant Professor Of Geography Cerner at 02/04/2023 2:07 PM CDT documented in this encounter Plan of Treatment Not on file documented as of this encounter Visit Diagnoses Not on filedocumented in this encounter Care Teams Olive Packer Relationship Specialty Start Date End Date Jay Howell MD [address] [place] [phone] PCP - General Emergency Medicine 11/12/23 documented as of this encounter
--- OUTSIDE RECORDS SUMMARY | 2025-07-24 06:58 | XMS_ITS | Encounter Summary ---
Author Organization [employer] ([place], [place], [place], [place]) Address [address] [place] [address] Care Team Providers Care Screening Nurse Name Role Phone Jay Howell MD Primary Care Provider [phone] Encounter Details Date Type Department Care Team (Late st Contact Info) Description 08/27/2020 Transcribed Document [facility] Family Medicine [address] [place] [address] ProviderJessie MD [address] [place], [place] [id number] Social History Tobacco Use Types Packs/Day Years Used Date Smoking Tobacco: Never Assessed Comments Unknown Sex and Gender Information Value Date Recorded Sex Assigned at Not on file Legal Sex Female 7:30 PM CDT Gender Identity Not on file Sexual Orientation Not on file documented as of this encounter Miscellaneous Notes * Cerner Conversion Note - Historical ProviderMD - 08/27/2020 3:14 PM CAMPAIGN MANAGEMENT SPECIALIST Evaluation, Physical Therapy Entered On: 08/29/2020 12:09 EST Performed On: 08/29/2020 10:38 EST by ERIC OH, PT General Information, PT Therapy Diagnosis, PT : assessment for need for skilled PTx --- NONE at this time Onset of Problem, PT : 08/27/2020 EST Co-treated by, PT : Other: OTx Student General Information Comment, PT : 79 yo female adm to [facility] 08/25 with L LE Hematoma and [...] ALTHEA ERIC, PT - 08/29/2020 13:14 EST [facility] PT Charges PT Eval Low Complexity : 1 ALHTEA ERIC, PT - 08/29/2020 13:14 EST Electronically signed by Sivan, [facility] Conversion Disc Pad Knockout Worker Cerner at 02/04/2023 1:59 PM CDT documented in this encounter Plan of Treatment Not on file documented as of this encounter Visit Diagnoses Not on filedocumented in this encounter Care Teams Screening Nurse Relationship Specialty Start Date End Date Jay Howell MD [address] [place] [phone] PCP - General Emergency Medicine 11/12/23 documented as of this encounter
--- OUTSIDE RECORDS SUMMARY | 2025-07-24 06:58 | XMS_ITS | Encounter Summary ---
Author Organization [employer] ([place], [place], [place], [place]) Address [address] [place] [address] Care Team Providers Care Physics Department Chair Name Role Phone Jay Howell MD Primary Care Provider [phone] Encounter Details Date Type Department Care Team (Late st Contact Info) Description 08/28/2020 Transcribed Document [facility] [place] [address] [place] [address] ProviderJessie MD [address] [place] [address] Social History Tobacco Use Types Packs/Day Years Used Date Smoking Tobacco: Never Assessed Comments Unknown Sex and Gender Information Value Date Recorded Sex Assigned at Not on file Legal Sex Female 7:30 PM CDT Gender Identity Not on file Sexual Orientation Not on file documented as of this encounter Miscellaneous Notes * Cerner Conversion Note - Jessie Yuen MD - 08/28/2020 10:32 AM NET REPAIRER Patient: SKYLER MONTOYA Age: 79 years Sex: [...] level of muscle per surgery *Operation RIGHT MANUFACTURING QUALITY TECHNICIAN access - ultrasound guided Aortogram with LEFT lower extremity run-off LEFT PT angioplasty (2.5-2c799bb Nanocross) LEFT peroneal angioplasty (2.5-1f941sx Nanocross) RIGHT MANUFACTURING QUALITY TECHNICIAN closure (Angioseal) LEFT leg debridement 08/28/20 seen [...] Level 8.8 mg/dL 08/27/2020 03:40 MICRO: ACC: [id number] ORDER: Culture Wound and Stain DATE: 08/25/2020 05:00 SOURCE: Wound SITE: Leg Lower L Reports Final 08/28/2020 08:57 No growth Pre 08/26/2020 06:23 No growth GS 08/25/2020 07:26 No organisms seen. Few White Blood Cells Rare epithelial cells == ACC: [id number] ORDER: Culture AFB and Stain DATE: 08/26/2020 13:56 SOURCE: Surgical Swab SITE: Leg Lower L Reports AFS 08/27/2020 13:07 No Acid Fast Bacilli seen == ACC: [id number] ORDER: Culture Anaerobic DATE: 08/26/2020 13:56 SOURCE: Surgical Swab SITE: Leg Lower L Reports Pre 08/28/2020 07:01 No Anaerobic growth Pre 08/27/2020 07:47 Culture in progress == ACC: [id number] ORDER: Culture Wound and Stain DATE: 08/26/2020 15:23 SOURCE: Surgical Swab SITE: Leg Lower L Reports Pre 08/27/2020 07:14 No growth GS 08/26/2020 18:13 Few White Blood Cells No organisms seen. == ACC: [id number] ORDER: Culture Fungus DATE: 08/26/2020 13:56 SOURCE: Surgical Swab SITE: Leg Lower L Reports SINDI 08/26/2020 16:09 No Fungal elements seen == ACC: [id number] ORDER: Culture Blood DATE: 08/25/2020 05:01 SOURCE: Blood SITE: Reports Pre 08/28/2020 06:01 No growth at 3 days. Pre 08/27/2020 06:01 No growth at 2 days. Pre 08/26/2020 06:01 No growth at 1 day. Pre 08/25/2020 23:02 Culture less than 24 Hrs old == ACC: [id number] ORDER: Culture Blood DATE: 08/25/2020 05:01 SOURCE: Blood SITE: Reports Pre 08/28/2020 06:01 No growth at 3 days. Pre 08/27/2020 06:01 No growth at 2 days. Pre 08/26/2020 06:01 No growth at 1 day. Pre 08/25/2020 23:02 Culture less than 24 Hrs old == Radiology Results (Last 48 hours) [id number] -- 08/25/2020 05:53 CT Abdomen WO W [...] them. Electronically signed by Gayle Finnegan Conversion Prior Authorization Technician Cerner at 02/04/2023 2:17 PM CDT documented in this encounter Plan of Treatment Not on file documented as of this encounter Visit Diagnoses Not on filedocumented in this encounter Care Teams Physics Department Chair Relationship Specialty Start Date End Date Jay Howell MD [address] [place] [phone] PCP - General Emergency Medicine 11/12/23 documented as of this encounter
--- OUTSIDE RECORDS SUMMARY | 2025-07-24 06:58 | XMS_ITS | Encounter Summary ---
Author Organization [employer] ([place], [place], [place], [place]) Address [address] [place] [address] Care Team Providers Care Water Quality Control Engineer Name Role Phone Jay Howell MD Primary Care Provider [phone] Encounter Details Date Type Department Care Team (Late st Contact Info) Description 08/27/2020 Transcribed Document [facility] [place] Medicine [address] [place] [address] ProviderJessie MD [address] [place], [place] [address] Social History Tobacco Use Types Packs/Day Years Used Date Smoking Tobacco: Never Assessed Comments Unknown Sex and Gender Information Value Date Recorded Sex Assigned at Not on file Legal Sex Female 7:30 PM CDT Gender Identity Not on file Sexual Orientation Not on file documented as of this encounter Miscellaneous Notes * Cerner Conversion Note - Historical ProviderMD - 08/27/2020 3:10 PM HEALTH MANAGER Patient: SKYLER MONTOYA Age: 79 Years [...] (High) 08/27/2020 08:41 EST Electronically signed by [facility] Conversion Market Basket Maker Cerner at 02/04/2023 2:06 PM CDT documented in this encounter Plan of Treatment Not on file documented as of this encounter Visit Diagnoses Not on filedocumented in this encounter Care Teams Water Quality Control Engineer Relationship Specialty Start Date End Date Jay Howell MD [address] [place] [phone] PCP - General Emergency Medicine 11/12/23 documented as of this encounter
--- OUTSIDE RECORDS SUMMARY | 2025-07-24 06:58 | XMS_ITS | Clinical Summary ---
Author Organization [facility] [place] [address] Care Team Providers Care Strategic Sourcing Consultant Name Role Phone Jay Howell MD [...] contusion - Repeat CTH 0500 pending - [facility] elevated - Na goal 140-145 - [...] repeat falls Continue outpatient follow-up with established nutrition intern; consider closer follow up with continued weakness/repeat falls. EF 64% Secondary open-angle glaucoma of right eye, ileana re stage 12/09/2015 Primary hypertension 09/30/2014 Overview (01/24/2024): -Resume home medication when appropriate Coronary artery disease invo lving coronary bypass graft of ewiiaapaayp heart without angina pectoris 09/30/2014 Overview (01/24/2024): Last Assessment & Plan: She has a known history of coronary artery disease. She has denied any chest pain. Her last heart catheterization was November 25, 2022 at [facility] in [place] showing: -last C 11/25/2022- A. CAD s/p [...] chest/PE protocol. Patient was sent to [facility] radiology department for CT scan today. - [...] Type Department Care Team Description 07/16/2025 Telephone [facility] [address], [address] [place] [phone] Kimmie Cabrera 07/09/2025 Telephone [facility] [address], [address] [place] [phone] Kimmie Cabrera 07/02/2025 Telephone [facility] [address], [address] [place] [phone] Returned Call 05/27/2025 Telephone [facility] [address] [place] [phone] Mitraneurology, Physician, 05/13/2025 Telephone [facility] [address], [address] [place] [phone] Mitraneurology, Physician, from Last 3 Months Immunizations [...] drink first t kathleen in the morning (EYE-INSTITUTE SCIENTIST) to steady your nerves or to get rid of a hangover? 0 03/20/2024 CAGE Questionnaire Score 0 024 Utilities Answer Date Recorded In the past 12 months has th sharing.it, gas, oil, or water company threatened to [...] Screenings 02/04/2025 08/06/2024 UKY-Depression Screening 04/03/2025 04/03/2024 QKH-DNUVZ-16 Vaccine ( - 2024- season) 2025 12/09/2021, [...] this topic Medical Devices Implanted Type Area Dental Floss Packer Device Identifier Shelf Expiration Date Model / Serial / Lot Nail 10s Intertan 10mm X 36cm 130d Left - [id number] Implanted:Qty: 1 on 03/20/2024 by Haroldo Braden MD at [facility] Nail Left: Femur [id number] 08/04/2033 [id number] / / [id number] Nail Tibial [id number] - [id number] Implanted:Qty: 1 on 08/06/2024 by Haroldo Braden MD at [facility] Nail Right: Tibia [employer] ([employer])-[id number] 09/15/2033 [id number] / / [id number] Lag/Comp Screw Kit 90/85 - [id number] Implanted:Qty: 1 on 03/20/2024 by Haroldo Braden MD at [facility] Screw Left: Femur [employer]-[id number] 09/26/2033 [id number] / / [id number] Screw Trigen 5.0mm For Metanail 37.5mm - [id number] Implanted:Qty: 1 on 03/20/2024 by Haroldo Braden MD at [facility] Screw Left: Femur [employer]-[id number] 08/19/2033 [id number] / / [id number] Screw Locking Adv T2 T2 D5xl60 - [id number] Implanted:Qty: 1 on 08/06/2024 by Haroldo Braden MD at [facility] Screw Right: Tibia [employer] ([facility][id number] 05/16/2034 2361-5060S / / [id number] Screw Locking Adv T2 T2 D5xl50 - [id number] Implanted:Qty: 1 on 08/06/2024 by Haroldo Braden MD at [facility] Screw Right: Tibia [employer] ([facility][id number] 01/14/2034 2361-5050S / / [id number] Screw Locking T2 D5xl42.5 - [id number] Implanted:Qty: 1 on 08/06/2024 by Haroldo Braden MD at [facility] Screw Right: Tibia [employer] ([facility][id number] 05/16/2034 2360-5042S / / [id number] Screw Locking T2 D5x35 - [id number] Implanted:Qty: 1 on 08/06/2024 by Haroldo Braden MD at [facility] Screw Right: Tibia [employer] ([facility])-[id number] 05/16/2034 2360-5035S / / [id number] Procedures Procedure Name Priority Date/Time Associated Diagnosis [...] Adults <6.0% Children and Adolescents <7.5% Source: [place] [employer]. Standards of medical care in diabetes,2017. Diabetes Care.2017:40 (suppl 1):S1-S135. HbA1c assay performed by an ion-exchange chromatography method that is certified traceable to the DCCT. Gerhard Zazueta MD LAB BLOOD ORDERABLES Final Resu lt [facility] [address] [place] [address] from Last 3 Months or Most Recently Relevant to Health Maintenance Insurance MEDICARE Advance Directives Documents on File Type Date Recorded Patient Front End Developer Javascript Html Css Expl anation Advance Directives and Livin g [...] Patient has decision-making capacity? Yes Care Teams Strategic Sourcing Consultant Relationship Specialty Start Date End Date Jay Howell MD [address] [place], [place] [address] PCP - General 03/08/21
--- OUTSIDE RECORDS SUMMARY | 2025-07-24 06:58 | XMS_ITS | Encounter Summary ---
Author Organization [employer] ([place], [place], [place], [place]) Address [address] [place] [address] Care Team Providers Care Canine Deputy Name Role Phone Jay Howell MD Primary Care Provider [phone] Encounter Details Date Type Department Care Team (Late st Contact Info) Description 03/19/2021 Transcribed Document [facility] Family Medicine [address] [place] [address] ProviderJessie MD [address] [place] [phone] Social History Tobacco Use Types Packs/Day Years [...] 03/19/2021 15:48 EDT by Krystina Giang V, Event Marketing Coordinator Tanker Serviceman Final Discharge Planning Discharge Arrangements : Patient [...] : Yes Discharge To Care Management : Home/Residential/Long Term or Self Care -01 Krystina Giang V, Event Marketing Coordinator [facility] [place] 03/19/2021 15:48 EDT Final Narrative Note Final Narrative Note : DC home with spouse. Follow up with outpatient Physical therapy in home town. IM signed. Krystina Giang V Event Marketing Coordinator [facility] - 03/19/2021 15:48 EDT Electronically signed by [facility] Conversion Primer Waterproofing Machine Operator Cerner at 02/04/2023 2:08 PM CDT documented in this encounter Plan of Treatment Not on file documented as of this encounter Visit Diagnoses Not on filedocumented in this encounter Care Teams Canine Deputy Relationship Specialty Start Date End Date Jay Howell MD [address] [place] [phone] PCP - General Emergency Medicine 11/12/23 documented as of this encounter
--- OUTSIDE RECORDS SUMMARY | 2025-07-24 06:58 | XMS_ITS | Encounter Summary ---
Author Organization [employer] ([place], [place], [place], [place]) Address [address] [place] [address] Care Team Providers Care Coating And Baking Operator Name Role Phone Jay Howell MD Primary Care Provider [phone] Encounter Details Date Type Department Care Team (Late st Contact Info) Description 08/27/2020 Transcribed Document [facility] [place] [address] [place] [address] ProviderJessie MD [address] [place] [address] Social History Tobacco Use Types Packs/Day Years Used Date Smoking Tobacco: Never Assessed Comments Unknown Sex and Gender Information Value Date Recorded Sex Assigned at Not on file Legal Sex Female 7:30 PM CDT Gender Identity Not on file Sexual Orientation Not on file documented as of this encounter Miscellaneous Notes * Cerner Conversion Note - Historical ProviderMD - 08/27/2020 2:00 AM PLANNING DIRECTOR Steel Unloader Details Entered On: 08/27/2020 1:36 EST Performed [...] 08/27/2020 1:36 EST Electronically signed by Sivan [facility] Conversion Information Technology Instructor Cerner at 02/04/2023 2:19 PM CDT documented in this encounter Plan of Treatment Not on file documented as of this encounter Visit Diagnoses Not on filedocumented in this encounter Care Teams Coating And Baking Operator Relationship Specialty Start Date End Date Jay Howell MD [address] [place] [phone] PCP - General Emergency Medicine 11/12/23 documented as of this encounter
--- OUTSIDE RECORDS SUMMARY | 2025-07-24 06:58 | XMS_ITS | Encounter Summary ---
Author Organization [employer] ([place], [place], [place], [place]) Address [address] [place] [address] Care Team Providers Care Outpatient Admitting Clerk Name Role Phone Jay Howell MD Primary Care Provider [phone] Encounter Details Date Type Department Care Team (Late st Contact Info) Description 08/28/2020 Transcribed Document [facility] [place] Family Medicine [address] [place] [address] ProviderJessie MD [address] [place] [address] Social History Tobacco Use Types Packs/Day Years Used Date Smoking Tobacco: Never Assessed Comments Unknown Sex and Gender Information Value Date Recorded Sex Assigned at Not on file Legal Sex Female 7:30 PM CDT Gender Identity Not on file Sexual Orientation Not on file documented as of this encounter Miscellaneous Notes * Cerner Conversion Note - Jessie ProviderMD - 08/28/2020 1:08 PM ADJUNCT COMMUNICATIONS FACULTY MEMBER Patient: SKYLER MONTOYA Age: 79 Years Sex: [...] distal ecchymosis. Palpable DP pulse, audible biphasic LABORER CEMENT GUN PLACING signal. Neuromotor intact. VTE Risk Total Score VTE Prophylaxis - Surgical Clopidogrel 75 mg, Oral, Tab, Daily, Routine, Start 08/27/20 9:00:00 EST, 08/26/20 16:01:00 EST (MURTAUGH, ТАТЬНЯА) Warfarin 3 mg, Oral, Tab, MoWeFr, Start 08/29/20 18:00:00 EST (CRANFILLKAREN, PA-C) Warfarin 2 mg, Oral, Tab, TuThSaSu, Start 08/28/20 18:00:00 EST (CRANFILLKAREN, PA-C) Sequential Compression Device Start: 08/25/20 5:51:00 EST, Bilateral, While patient is in bed, Continuous Order (BETH DAVALOS) Assessment/Plan LEFT anterior distal leg wound with LEFT PT occlusion - distal - 08/26/2020 ([facility];Mehreen) RIGHT ASBESTOS COVERER access - ultrasound guided Aortogram with LEFT lower extremity run-off LEFT PT angioplasty (2.5-8d304xt Nanocross) LEFT peroneal angioplasty (2.5-2y069qi Nanocross) RIGHT ASBESTOS COVERER closure (Angioseal) LEFT leg debridement - H&H, [...] for tomorrow's vac change. - Rx for [place] 5/325mg q4-6h prn pain #20 on chart. - Will need RLE angio with revascularization in near future. - F/[place] 1 wk w/ [place]. [place] [facility] [place] 1245[place] - F/u w/ Dr. [...] 24 Hours) Radiology Results (Last 48 hours) [id number] -- 08/25/2020 05:53 CT Abdomen WO W [...] nitrofurantoin (blisters, blisters) Electronically signed by Sivan [facility] Conversion Safety Consultant Cerner at 02/04/2023 1:58 PM CDT documented in this encounter Plan of Treatment Not on file documented as of this encounter Visit Diagnoses Not on filedocumented in this encounter Care Teams Outpatient Admitting Clerk Relationship Specialty Start Date End Date Jay Howell MD [address] [place] [phone] PCP - General Emergency Medicine 11/12/23 documented as of this encounter
--- OUTSIDE RECORDS SUMMARY | 2025-07-24 06:58 | XMS_ITS | Encounter Summary ---
Author Organization [employer] ([place], [place], [place], [place]) Address [address] [address] Care Team Providers Care Button Buttonhole Marker Name Role Phone Jay Howell MD Primary Care Provider [phone] Encounter Details Date Type Department Care Team (Late st Contact Info) Description 08/28/2020 Transcribed Document [facility] Family Medicine [address] [place] [address] ProviderJessie MD [address] [place], [place] [address] Social History Tobacco Use Types Packs/Day Years Used Date Smoking Tobacco: Never Assessed Comments Unknown Sex and Gender Information Value Date Recorded Sex Assigned at Not on file Legal Sex Female 7:30 PM CDT Gender Identity Not on file Sexual Orientation Not on file documented as of this encounter Miscellaneous Notes * Cerner Conversion Note - Historical ProviderMD - 08/28/2020 9:22 AM NAIL CUTTER Patient: SKYLER MONTOYA Age: 79 Years [...] (High) 08/28/2020 07:35 EST Electronically signed by [facility] Conversion Career Technical Education Instructor Cerner at 02/04/2023 2:12 PM CDT documented in this encounter Plan of Treatment Not on file documented as of this encounter Visit Diagnoses Not on filedocumented in this encounter Care Teams Button Buttonhole Marker Relationship Specialty Start Date End Date Jay Howell MD [address] [place] [phone] PCP - General Emergency Medicine 11/12/23 documented as of this encounter
--- OUTSIDE RECORDS SUMMARY | 2025-07-24 06:58 | XMS_ITS | Encounter Summary ---
Author Organization [facility] Address [address] [place] [id number] Care Team Providers Care Intelligence Operations Name Role Phone Jay Howell MD Primary Care Provider Encounter Details Date Type Department Care Team (Late st Contact Info) Description 07/09/2025 Telephone [place] [facility] [address], [address] [place] [address] [place] [address] Social History Tobacco Use Types Packs/Day Years [...] place to sleep or slept in a residential (including now)? No 08/06/2024 CAGE ASSESSMENT Answer [...] drink first t kathleen in the morning (EYE-MARKET EDITOR) to steady your nerves or to get [...] documented as of this encounter Care Teams Intelligence Operations Relationship Specialty Start Date End Date Jay Howell MD [address] [place], [place] [address] PCP - General 03/08/21 documented as of this encounter
--- OUTSIDE RECORDS SUMMARY | 2025-07-24 06:58 | XMS_ITS | Encounter Summary ---
Author Organization [employer] ([place], [place], [place], [place]) Address [address] [place] [address] Care Team Providers Care Interstate Planner Name Role Phone Jay Howell MD Primary Care Provider [phone] Encounter Details Date Type Department Care Team (Late st Contact Info) Description 08/28/2020 Transcribed Document [facility] [place] [address] [place] [address] ProviderJessie MD [address] [place] [address] Social History Tobacco Use Types Packs/Day Years Used Date Smoking Tobacco: Never Assessed Comments Unknown Sex and Gender Information Value Date Recorded Sex Assigned at Not on file Legal Sex Female 7:30 PM CDT Gender Identity Not on file Sexual Orientation Not on file documented as of this encounter Miscellaneous Notes * Cerner Conversion Note - Historical MD Alpa - 08/28/2020 9:30 AM PREPARER SAMPLES AND REPAIRS Head Counselor Inpatient Document Entered On: 08/28/2020 11:43 EST Performed On: 08/28/2020 11:40 EST by KARRIE FERNANDES Rn-Educator Diabetes Head Counselor Inpatient Document Reason for Head Counselor Visit : Physician order Endocrine/Metabolic History : [...] 08/28/2020 11:40 EST Electronically signed by Sivan [facility] Conversion Project Drilling Engineer Cerner at 02/04/2023 2:21 PM CDT documented in this encounter Plan of Treatment Not on file documented as of this encounter Visit Diagnoses Not on filedocumented in this encounter Care Teams Interstate Planner Relationship Specialty Start Date End Date Jay Howell MD [address] [place] [phone] PCP - General Emergency Medicine 11/12/23 documented as of this encounter
--- OUTSIDE RECORDS SUMMARY | 2025-07-24 06:58 | XMS_ITS | Encounter Summary ---
Author Organization [employer] ([place], [place], [place], [place]) Address [address] [place] [address] Care Team Providers Care Clothing Examiner Name Role Phone Jay Howell MD Primary Care Provider [phone] Encounter Details Date Type Department Care Team (Late st Contact Info) Description 08/27/2020 Transcribed Document [facility] [place] [address] [place] [address] ProviderJessie MD [address] [place] [address] Social History Tobacco Use Types Packs/Day Years Used Date Smoking Tobacco: Never Assessed Comments Unknown Sex and Gender Information Value Date Recorded Sex Assigned at Not on file Legal Sex Female 7:30 PM CDT Gender Identity Not on file Sexual Orientation Not on file documented as of this encounter Miscellaneous Notes * Cerner Conversion Note - Historical ProviderMD - 08/27/2020 3:14 PM SERIALS LIBRARIAN Consult Phone Call Documentation Entered On: 08/27/2020 15:23 EST Performed On: 08/27/2020 15:14 EST by JOANN DELGADILLO Phone Call for Consults Consult Phone Call/Page Attempt : First call JOANN DELGADILLO - 08/27/2020 15:23 EST Electronically signed by Sivan [facility] Conversion Evaluation Assistant Cerner at 02/04/2023 1:59 PM CDT documented in this encounter Plan of Treatment Not on file documented as of this encounter Visit Diagnoses Not on filedocumented in this encounter Care Teams Clothing Examiner Relationship Specialty Start Date End Date Jay Howell MD [address] [place] [phone] PCP - General Emergency Medicine 11/12/23 documented as of this encounter
--- OUTSIDE RECORDS SUMMARY | 2025-07-24 06:58 | XMS_ITS | Encounter Summary ---
Author Organization [employer] ([place], [place], [place], [place]) Address [address] [place] [address] Care Team Providers Care Integrity Specialist Name Role Phone Jay Howell MD Primary Care Provider [phone] Encounter Details Date Type Department Care Team (Late st Contact Info) Description 08/27/2020 Transcribed Document [facility] [place] [address] [place] [address] ProviderJessie MD [address] [place] [address] Social History Tobacco Use Types Packs/Day Years Used Date Smoking Tobacco: Never Assessed Comments Unknown Sex and Gender Information Value Date Recorded Sex Assigned at Not on file Legal Sex Female 7:30 PM CDT Gender Identity Not on file Sexual Orientation Not on file documented as of this encounter Miscellaneous Notes * Cerner Conversion Note - Jessie Yuen MD - 08/27/2020 9:53 AM ENVIRONMENTAL PROJECTS ADVISOR WOCN Inpatient Documentation Entered On: 09/01/2020 16:35 [...] Ulcer WOCN Wound Pressure Ulcer Documentation : Pepofwtzi-[id number]-Uabb Abnormality: Leg Left Lower, Anterior on 09/01/2020 13:00 by HOLDEN HESS RN I/W/A Present on Admission to Hospital: No I/W/A Type: Hematoma I/W/A Dressing Status: Clean, Dry, Intact I/W/A Wound Date of Dressing Change: 1:[id number]:[id number]:0:0 I/W/A Wound Bed Description: Full-thickness, Granulating I/W/A [...] - 09/01/2020 16:32 EST Electronically signed by [facility] Conversion Veterinary Milk Specialist Cerner at 02/04/2023 2:18 PM CDT documented in this encounter Plan of Treatment Not on file documented as of this encounter Visit Diagnoses Not on filedocumented in this encounter Care Teams Integrity Specialist Relationship Specialty Start Date End Date Jay Howell MD [address] [place] [phone] PCP - General Emergency Medicine 11/12/23 documented as of this encounter
--- OUTSIDE RECORDS SUMMARY | 2025-07-24 06:58 | XMS_ITS | Encounter Summary ---
Author Organization [facility] Address [address] [place] [address] Care Team Providers Care Cigarette Paper Tester Name Role Phone Jay Howell MD Primary Care Provider [phone] Reason for Visit * Reason Onset Date Comments DR. DUMAS - SCHEDULING REQUEST 07/02/2025 Encounter Details Date Type Department Care Team (Late st Contact Info) Description 07/02/2025 Telephone [facility] CARDIOLOGY [address] [place] [phone] Judie Dumas MD [address] [place] [address] DR. 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. PATIENT WOULD LIKE TO BE SEEN [place] AND CAN SEND ANY RELEVANT RECORDS FROM CARE WHILE SHE WAS AWAY. documented in this encounter Plan of Treatment Not on file documented as of this encounter Visit Diagnoses Not on filedocumented in this encounter Care Teams Cigarette Paper Tester Relationship Specialty Start Date End Date Jay Howell MD [address] [place] [address] PCP - General Emergency Medicine 04/28/23 documented as of this encounter
--- OUTSIDE RECORDS SUMMARY | 2025-07-24 06:58 | XMS_ITS | Encounter Summary ---
Author Organization [employer] ([place], [place], [place], [place]) Address [address] [place] [address] Care Team Providers Care Boilermaker Ship Name Role Phone Jay Howell MD Primary Care Provider [phone] Encounter Details Date Type Department Care Team (Late st Contact Info) Description 03/19/2021 Transcribed Document [facility] [place] [facility] [place] [address] ProviderJessie MD [address] [place] [address] Social History Tobacco Use Types Packs/Day Years [...] on filedocumented in this encounter Care Teams Boilermaker Ship Relationship Specialty Start Date End Date Jay Howell MD [address] [place] [phone] PCP - General Emergency Medicine 11/12/23 documented as of this encounter
--- OUTSIDE RECORDS SUMMARY | 2025-07-24 06:58 | XMS_ITS | Encounter Summary ---
Author Organization [employer] ([place], [place], [place], [place]) Address [address] [place] [address] Care Team Providers Care Professor Of Economics Name Role Phone Jay Howell MD Primary Care Provider [phone] Encounter Details Date Type Department Care Team (Late st Contact Info) Description 08/28/2020 Transcribed Document [facility] [place] [address] [place] [address] ProviderJessie MD [address] [place] [address] Social History Tobacco Use Types Packs/Day Years Used Date Smoking Tobacco: Never Assessed Comments Unknown Sex and Gender Information Value Date Recorded Sex Assigned at Not on file Legal Sex Female 7:30 PM CDT Gender Identity Not on file Sexual Orientation Not on file documented as of this encounter Miscellaneous Notes * Cerner Conversion Note - Jessie Yuen MD - 08/28/2020 3:33 PM PASSEMENTERIE WORKER On Going Discharge Planning Entered On: 08/28/2020 15:37 EST Performed On: 08/28/2020 15:33 EST by KAVITA PELLETIER RN-Oral Surgery PhysicianTraffic Signal Mechanic Progress Note Discharge Arrangements : Patient Post-Acute [...] Meeting Medical Necessity : Yes KAVITA PELLETIER RN-Oral Surgery Physician - 08/28/2020 15:33 EST Narrative Progress Note Narrative Progress Note : Cx's still pending. IV Vanc/Dapto. Vasc s/o. Pt will need NPWT-CM will obtain prior to dc. List of MANAGER PHYSICAL's for [place] given to pt. She [...] past after her [facility] and went to [facility] prior to home with HH. She is agreeable to look at list of MANAGER PHYSICAL to make an informed decision based on quality and resource use information. Cx's are pending to determine need for IV abx at home. Likely dc in a few days. CM will continue to follow. KAVITA PELLETIER RN-Oral Surgery Physician - 08/27/20 15:14:36 KAVITA PELLETIER RN-Oral Surgery Physician - 08/28/2020 15:33 EST Electronically signed by Sivan [facility] Conversion Pump Servicer Helper Cerner at 02/04/2023 2:13 PM CDT documented in this encounter Plan of Treatment Not on file documented as of this encounter Visit Diagnoses Not on filedocumented in this encounter Care Teams Professor Of Economics Relationship Specialty Start Date End Date Jay Howell MD [address] [place] [phone] PCP - General Emergency Medicine 11/12/23 documented as of this encounter
--- OUTSIDE RECORDS SUMMARY | 2025-07-24 06:58 | XMS_ITS | Encounter Summary ---
Author Organization [employer] ([place], [place], [place], [place]) Address [address] [place] [address] Care Team Providers Care Knuckler Name Role Phone Jay Howell MD Primary Care Provider [phone] Encounter Details Date Type Department Care Team (Late st Contact Info) Description 08/27/2020 Transcribed Document [facility] [place] [address] [place] [address] ProviderJessie MD [address] [place], [place] [address] Social History Tobacco Use Types Packs/Day Years Used Date Smoking Tobacco: Never Assessed Comments Unknown Sex and Gender Information Value Date Recorded Sex Assigned at Not on file Legal Sex Female 7:30 PM CDT Gender Identity Not on file Sexual Orientation Not on file documented as of this encounter Miscellaneous Notes * Cerner Conversion Note - Historical ProviderMD - 08/27/2020 5:00 PM AUTOMATIC MACHINE ATTENDANT Chart Check - Review Order Profile Entered On: 08/27/2020 19:43 EST Performed On: 08/27/2020 17:00 EST by JOAO ROSA RN Chart Check Power[employer]ans Initiated/Discontinued as Appropriate : Yes All Active Orders Reviewed : Yes JOAO ROSA RN - 08/27/2020 19:43 EST Electronically signed by Sivan [facility] Conversion Dispatcher Automobile Rental Cerner at 02/04/2023 2:08 PM CDT documented in this encounter Plan of Treatment Not on file documented as of this encounter Visit Diagnoses Not on filedocumented in this encounter Care Teams Knuckler Relationship Specialty Start Date End Date Jay Howell MD [address] [place] [phone] PCP - General Emergency Medicine 11/12/23 documented as of this encounter
--- OUTSIDE RECORDS SUMMARY | 2025-07-24 06:58 | XMS_ITS | Encounter Summary ---
Author Organization [facility] Address [address] [place] [address] Care Team Providers Care Account Manager Employee Benefits Name Role Phone Jay Howell MD Primary Care Provider [phone] Reason for Visit * Reason Onset Date Comments ALICE - MEDICAL RECORDS REQUEST 07/02/2025 Encounter Details Date Type Department Care Team (Late st Contact Info) Description 07/02/2025 Telephone [facility] CARDIOLOGY [address] [place] [address] Brenda Guerrier APRN [address] [place] [address] ALICE - MEDICAL RECORDS REQUEST Social History [...] 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 SHE CAN FILL OUT THE SHARON FORM AT HER APPT IF THEY NEED ANYTHING OTHER THAN WHAT WE CAN SEE. THANKS. * Telephone Encounter - Radha Prince RegSched Rep - 07/02/2025 10:43 AM EDT Caller: Miladis Montoya Relationship: Self Best call back number: [phone] What form or medical record are you requesting: MEDICAL RECORDS. Who is requesting this form or medical record from you: DR FLOR LÓPEZ WITH [facility] IN [place], [place] How would you like to receive the form or medical records (pick-up, mail, fax): FAX If fax, what is the fax number: [phone] Timeframe paperwork needed: [place] - BEFORE APPOINTMENT ON 07.10.25 Additional notes: PATIENT HAS APPOINTMENT WITH [facility] ON 07.10.25 AND NEEDS TO HAVE MEDICAL RECORDS FROM [facility] SENT OVER. HOWEVER, [facility] NEEDS A MEDICAL RECORDS REQUEST FORM FROM THE OFFICE BEFORE THEY ARE WILLING TO FAX THEM TO US. documented in this encounter Plan of Treatment Not on file documented as of this encounter Visit Diagnoses Not on filedocumented in this encounter Care Teams Account Manager Employee Benefits Relationship Specialty Start Date End Date Jay Howell MD [address] [place] [address] PCP - General Emergency Medicine 04/28/23 documented as of this encounter
--- OUTSIDE RECORDS SUMMARY | 2025-07-24 06:58 | XMS_ITS | Encounter Summary ---
Author Organization [employer] ([place], [place], [place], [place]) Address [address] [place] [address] Care Team Providers Care Metal Caster Name Role Phone Jay Howell MD Primary Care Provider [phone] Encounter Details Date Type Department Care Team (Late st Contact Info) Description 08/28/2020 Transcribed Document [facility] [place] [address] [place] [address] ProviderJessie MD [address] [place], [place] [address] Social History Tobacco Use Types Packs/Day Years Used Date Smoking Tobacco: Never Assessed Comments Unknown Sex and Gender Information Value Date Recorded Sex Assigned at Not on file Legal Sex Female 7:30 PM CDT Gender Identity Not on file Sexual Orientation Not on file documented as of this encounter Miscellaneous Notes * Cerner Conversion Note - Historical ProviderMD - 08/28/2020 5:00 PM OFFAL ROLLER Chart Check - Review Order Profile Entered On: 08/28/2020 18:04 EST Performed On: 08/28/2020 17:00 EST by Jose L Jones RN Chart Check All Active Orders Reviewed : Yes Jose L Jones RN - 08/28/2020 18:04 EST Electronically signed by Sivan [facility] Conversion Dressmaker Or Tailor Cerner at 02/04/2023 2:20 PM CDT documented in this encounter Plan of Treatment Not on file documented as of this encounter Visit Diagnoses Not on filedocumented in this encounter Care Teams Metal Caster Relationship Specialty Start Date End Date Jay Howell MD [address] [place] [phone] PCP - General Emergency Medicine 11/12/23 documented as of this encounter
--- OUTSIDE RECORDS SUMMARY | 2025-07-24 06:58 | XMS_ITS | Encounter Summary ---
Author Organization [employer] ([place], [place], [place], [place]) Address [address] [place] [address] Care Team Providers Care District Branch Manager Name Role Phone Jay Howell MD Primary Care Provider [phone] Encounter Details Date Type Department Care Team (Late st Contact Info) Description 08/27/2020 Transcribed Document [facility] [place] [address] [place] [address] ProviderJessie MD [address] [place] [address] Social History Tobacco Use Types Packs/Day Years Used Date Smoking Tobacco: Never Assessed Comments Unknown Sex and Gender Information Value Date Recorded Sex Assigned at Not on file Legal Sex Female 7:30 PM CDT Gender Identity Not on file Sexual Orientation Not on file documented as of this encounter Miscellaneous Notes * Cerner Conversion Note - Historical ProviderMD - 08/27/2020 3:14 PM FAREBOX REPAIRER Evaluation, Occupational Therapy Entered On: 08/29/2020 13:30 EST Performed On: 08/29/2020 13:19 EST by ANAY BOCANERGA, STUDENT-OCCUPATIONAL THERAPIST General Information, OT General Information [...] Occupational Therapy : Verbalizes understanding ANAY BOCANEGRA [facility] - 08/29/2020 13:19 EST Teaching/Learning [...] BOCANEGRA STUDENTOCCUPATIONAL THERAPIST - 08/29/2020 13:40 EST Business Administration Instructor Goals, OT Grooming LTG Grid Goal #1 [...] BOCANEGRA STUDENT-OCCUPATIONAL THERAPIST - 08/29/2020 13:40 EST [place] OT Charges OT Eval Moderate Complexity : 1 ANAY BOCANEGRA STUDENT-OCCUPATIONAL THERAPIST - 08/29/2020 13:19 EST documented in this encounter Plan of Treatment Not on file documented as of this encounter Visit Diagnoses Not on filedocumented in this encounter Care Teams District Branch Manager Relationship Specialty Start Date End Date Jay Howell MD [address] [place] [phone] PCP - General Emergency Medicine 11/12/23 documented as of this encounter
--- OUTSIDE RECORDS SUMMARY | 2025-07-24 06:58 | XMS_ITS | Encounter Summary ---
Author Organization [employer] ([place], [place], [place], [place]) Address [address] [place] [address] Care Team Providers Care Public Information Director Name Role Phone Jay Howell MD Primary Care Provider [phone] Encounter Details Date Type Department Care Team (Late st Contact Info) Description 08/28/2020 Transcribed Document [facility] [place] [address] [place] [address] ProviderJessie MD [address] [place] [address] Social History Tobacco Use Types Packs/Day Years Used Date Smoking Tobacco: Never Assessed Comments Unknown Sex and Gender Information Value Date Recorded Sex Assigned at Not on file Legal Sex Female 7:30 PM CDT Gender Identity Not on file Sexual Orientation Not on file documented as of this encounter Miscellaneous Notes * Cerner Conversion Note - Jessie Yuen MD - 08/28/2020 11:43 AM TOLL MECHANIC Patient: SKYLER MONTOYA Age: 79 years Sex: Female : 1940 Associated Diagnoses: None Author: SLICK BRADLEY, [facility] Ms. Montoya is 79 yo female [...] Slick Bradley, Dana Electronically signed by Sivan [facility] Conversion Vehicle Operator Technician Cerner at 02/04/2023 1:57 PM CDT documented in this encounter Plan of Treatment Not on file documented as of this encounter Visit Diagnoses Not on filedocumented in this encounter Care Teams Public Information Director Relationship Specialty Start Date End Date Jay Howell MD [address] [place] [phone] PCP - General Emergency Medicine 11/12/23 documented as of this encounter
[2025-07-24 07:05] LABS: Bilirubin,Urine Negative (Negative); Color,Urine YELLOW (Yellow); Glucose,Urine (UA) Negative (Negative); Ketones,Urine Negative (Negative); Leukocyte Esterase,Urine Negative (Negative); PH,Urine 5.5 (5.0-8.5); Protein,Urine Negative (Negative); Specific Gravity, Urine <= 1.005 (1.005-1.030); Urobilinogen,Urine 0.2 EU/dl (0.2)
[2025-07-24 10:40] LABS: Bacteria,Urine Trace /lpf; Squamous Epithelial Cell,Urine Occasional #/hpf (0-5); WBC,Urine Occasional #/hpf (0-3)
== END 2025-07-24 23:59 | disposition home or self-care (01) ==
PROVIDERS: PCP Family Medicine; Visit Provider Family Medicine
DX: R30.0 Dysuria (principal)
CPT/HCPCS: 81001

== ENCOUNTER 2025-07-28 09:06 | Outpatient (CLI) | payer MEDICARE, SELFPAY ==
--- OUTSIDE RECORDS SUMMARY | 2025-02-05 08:00 | XMS_ITS | Encounter Summary ---
Author Organization [place] [address] Care Team Providers Care Oak Tanner Name Role Phone No Pcp, Per Patient Primary Care Provider Evelyne prabhakar Encounter Details Date Type Department Care Team (Latest Contact Info) Description 02/05/2025 8:00 AM EDT Hospital Encounter SE Referral Lab 1 [place] [address] [address]ino Ugal[address] MD [address] [facility] [address] [place] [address] Encounter for general adult medical examination without abnormal findings Social History Tobacco Use Types Packs/Day Years Used Date Smoking Tobacco: Former Cigarettes Q uit: 1991 Passive Smoke Exposure: Past Smokeless Tobacco: Never Alcohol Use Standard Drinks/Week Comments Not Currently 0 (1 standard drink = 0.6 oz pur e alcohol) [facility] Utilities Answer Date Recorded In the past 12 months has [employer] electric, gas, oil, or water company threatened to shut off services in your home? No 06/23/2025 Overall Financial Resource Strain (CARDIA) Answe r Date Recorded How hard is it for you to pa y for the very basics like food, housing, medical care, and heating? Not very hard 06/23/2025 PHQ-2 Answer Date Recorded PHQ-2 Total Score 0 06/23/2025 [facility] [place] of Occupat ional Health - Occupational Stress [...] to get more. Never true 06/23/2025 [facility] IP Transportation Answer D ate Recorded [...] 1:16 PM EDT Emiliano Jimenez RN * [place] Suicide Severity Rating Scale (Q shift for [...] Care Team (Late st Contact Info) Description 08/05/2025 3:45 PM EDT Office Visit [facility] [address] [place] [address] [place] [address] Vargas Wolf MD [address] [place] [address] [place] [address] Scheduled Orders Name Type Priority Associated [...] documented as of this encounter Care Teams Oak Tanner Relationship Specialty Start Date End Date No Pcp, Per Patient PCP - General 06/04/24 documented as of this encounter
--- OUTSIDE RECORDS SUMMARY | 2025-02-05 08:00 | XMS_ITS | Encounter Summary ---
Author Organization [place] [address] Care Team Providers Care Smoke Eater Name Role Phone No Pcp, Per Patient Primary Care Provider Evelyne prabhakar Encounter Details Date Type Department Care Team (Latest Contact Info) Description 02/05/2025 8:00 AM EDT Hospital Encounter SE Referral Lab 1 [place] [address] Valentino Ugalde MD 47 [facility] [address] [place] [address] Encounter for general adult medical examination without abnormal findings Social History Tobacco Use Types Packs/Day Years Used Date Smoking Tobacco: Former Cigarettes Q uit: 1991 Passive Smoke Exposure: Past Smokeless Tobacco: Never Alcohol Use Standard Drinks/Week Comments Not Currently 0 (1 standard drink = 0.6 oz pur e alcohol) [facility] Utilities Answer Date Recorded In the past 12 months has [employer] electric, gas, oil, or water company threatened to shut off services in your home? No 06/23/2025 Overall Financial Resource Strain (CARDIA) Answe r Date Recorded How hard is it for you to pa y for the very basics like food, housing, medical care, and heating? Not very hard 06/23/2025 PHQ-2 Answer Date Recorded PHQ-2 Total Score 0 06/23/2025 [facility] [place] of Occupat ional Health - Occupational Stress [...] money to get more. Never true 06/23/2025 [facility] IP Transportation Answer D ate [...] 1:16 PM EDT Emiliano Jimenez RN * [place] Suicide Severity Rating Scale (Q shift for [...] EDT Office Visit [facility] [address] [place] [address] [place] [phone] Vargas Wolf MD [address] [place] [address] [place] [address] documented as of this encounter Results [...] 6:52 AM EDT [facility] [place] Percent 12.7 % 02/12/2025 6:52 AM EDT [facility] Eos Percent 0.0 % 02/12/2025 6:52 AM EDT [facility] Baso Percent 0.6 % 02/12/2025 6:52 AM EDT [facility] Neut # 1.6 1.6 - 6.1 x10(3)/[facility] 02/12/2025 6:52 AM EDT [facility] Comment:Neutrophils equals s egs plus bands IMMGRAN# 0.0 0.0 - 0.1 x10(3)/[facility] 02/12/2025 6:52 AM EDT [facility] Comment:Automated count of m etamyelocytes, myelocytes and promyelocytes. An absolute IG <0.1 is reported as 0.0. Lymph # 1.3 1.2 - 3.9 x10(3)/[facility] 02/12/2025 6:52 AM EDT [facility] [place] # 0.4 0.3 - 0.9 x10(3)/[facility] 02/12/2025 6:52 AM EDT [facility] Eos# 0.0 0.0 - 0.5 x10(3)/[facility] 02/12/2025 6:52 AM EDT [facility] Baso # 0.0 0.0 - 0.1 x10(3)/[facility] 02/12/2025 6:52 AM EDT [facility] Blood VENOUS BLOOD / Unknown Venipuncture / Unknown 02/12/2025 4:50 AM EDT 02/12/2025 6:30 AM EDT us Valentino Ugalde MD HEMATOLOGY ORDERABLES Final Res ult [facility], [facility] [address] [facility] , [place] [address] documented in this encounter Visit Diagnoses Diagnosis Encounter for general adult medical examination without abnormal findings Routine general medical examination at a health care facility documented in this encounter Additional Health Concerns Infection Onset Date Last Indicated Resolved Time ESBL organism Comment:ESBL urine: 05/23, 06/1205/23/2025 06/12/2025 documented as of this encounter Care Teams Smoke Eater Relationship Specialty Start Date End Date No Pcp, Per Patient PCP - General 06/04/24 documented as of this encounter
--- OUTSIDE RECORDS SUMMARY | 2025-02-05 08:00 | XMS_ITS | Encounter Summary ---
Author Organization [place] [address] Care Team Providers Care Marketing Technologist Name Role Phone No Pcp, Per Patient Primary Care Provider Evelyne prabhakar Encounter Details Date Type Department Care Team (Latest Contact Info) Description 02/05/2025 8:00 AM EDT Hospital Encounter SE Referral Lab 1 [place] [address] Valentino Ugalde MD 47 [facility] [address] [place] [address] Encounter for general adult medical examination without abnormal findings Social History Tobacco Use Types Packs/Day Years Used Date Smoking Tobacco: Former Cigarettes Q uit: 1991 Passive Smoke Exposure: Past Smokeless Tobacco: Never Alcohol Use Standard Drinks/Week Comments Not Currently 0 (1 standard drink = 0.6 oz pur e alcohol) [facility] Utilities Answer Date Recorded In the past 12 months has [employer] electric, gas, oil, or water company threatened to shut off services in your home? No 06/23/2025 Overall Financial Resource Strain (CARDIA) Answe r Date Recorded How hard is it for you to pa y for the very basics like food, housing, medical care, and heating? Not very hard 06/23/2025 PHQ-2 Answer Date Recorded PHQ-2 Total Score 0 06/23/2025 [facility] [place] of Occupat ional Health - Occupational Stress [...] money to get more. Never true 06/23/2025 [facility] IP Transportation Answer D ate [...] 1:16 PM EDT Emiliano Jimenez RN * [place] Suicide Severity Rating Scale (Q shift for [...] EDT Office Visit [facility] [address] [place] [address] [place] [phone] Vargas Wolf MD [address] [place] [address] [place] [address] documented as of this encounter Results [...] recommended by the National Kidney Foundation - [place] Society of Nephrology Task Force. Blood VENOUS BLOOD / Unknown Venipuncture / Unknown 02/12/2025 4:50 AM EDT 02/12/2025 6:30 AM EDT us Valentino Ugalde MD CHEMISTRY ORDERABLES Final Resu lt [facility] [employer] [address] [place] [address] , [place] [address] documented in this encounter Visit Diagnoses Diagnosis Encounter for general adult medical examination without abnormal findings Routine general medical examination at a health care facility documented in this encounter Additional Health Concerns Infection Onset Date Last Indicated Resolved Time ESBL organism Comment:ESBL urine: 05/23, 06/1205/23/2025 06/12/2025 documented as of this encounter Care Teams Marketing Technologist Relationship Specialty Start Date End Date No Pcp, Per Patient PCP - General 06/04/24 documented as of this encounter
--- OUTSIDE RECORDS SUMMARY | 2025-02-05 08:00 | XMS_ITS | Encounter Summary ---
Author Organization [place] [address] Care Team Providers Care Senior Administrative Assistant Name Role Phone No Pcp, Per Patient Primary Care Provider Evelyne prabhakar Encounter Details Date Type Department Care Team (Latest Contact Info) Description 02/05/2025 8:00 AM EDT Hospital Encounter SE Referral Lab 1 [place] [address] Valentino Ugalde MD 47 [facility] [address] [place] [address] Encounter for general adult medical examination without abnormal findings Social History Tobacco Use Types Packs/Day Years Used Date Smoking Tobacco: Former Cigarettes Q uit: 1991 Passive Smoke Exposure: Past Smokeless Tobacco: Never Alcohol Use Standard Drinks/Week Comments Not Currently 0 (1 standard drink = 0.6 oz pur e alcohol) [facility] Utilities Answer Date Recorded In the past 12 months has [employer] electric, gas, oil, or water company threatened to shut off services in your home? No 06/23/2025 Overall Financial Resource Strain (CARDIA) Answe r Date Recorded How hard is it for you to pa y for the very basics like food, housing, medical care, and heating? Not very hard 06/23/2025 PHQ-2 Answer Date Recorded PHQ-2 Total Score 0 06/23/2025 [facility] [place] of Occupat ional Health - Occupational Stress [...] money to get more. Never true 06/23/2025 [facility] IP Transportation Answer D ate [...] 1:16 PM EDT Emiliano Jimenez RN * [place] Suicide Severity Rating Scale (Q shift for [...] EDT Office Visit [facility] [address] [place] [address] [place] [phone] Vargas Wolf MD [address] [place] [address] [place] [address] documented as of this encounter Results * (ABNORMAL) PREALBUMIN (02/12/2025 4:50 AM EDT) Prealbumin 8.9(L) 20.0 - 40.0 mg/dL 02/12/2025 7:15 AM EDT [facility] Blood VENOUS BLOOD / Unknown Venipuncture / Unknown 02/12/2025 4:50 AM EDT 02/12/2025 6:30 AM EDT us Valentino Ugalde MD CHEMISTRY ORDERABLES Final Resu lt [facility] 1 [facility] , [place] [address] documented in this encounter Visit Diagnoses Diagnosis Encounter for general adult medical examination without abnormal findings Routine general medical examination at a health care facility documented in this encounter Additional Health Concerns Infection Onset Date Last Indicated Resolved Time ESBL organism Comment:ESBL urine: 05/23, 06/1205/23/2025 06/12/2025 documented as of this encounter Care Teams Senior Administrative Assistant Relationship Specialty Start Date End Date No Pcp, Per Patient PCP - General 06/04/24 documented as of this encounter
--- OUTSIDE RECORDS SUMMARY | 2025-02-05 08:00 | XMS_ITS | Encounter Summary ---
Author Organization [place] [address] Care Team Providers Care Social Media Content Specialist Name Role Phone No Pcp, Per Patient Primary Care Provider Evelyne prabhakar Encounter Details Date Type Department Care Team (Latest Contact Info) Description 02/05/2025 8:00 AM EDT Hospital Encounter SE Referral Lab 1 [place] [address] Valentino Ugalde MD 47 [facility] [address] [place] [address] Encounter for general adult medical [...] Recorded In the past 12 months has [employer] electric, gas, oil, or water company threatened to shut off services in your home? No 06/23/2025 Overall Financial Resource Strain (CARDIA) Answe r Date Recorded How hard is it for you to pa y for the very basics like food, housing, medical care, and heating? Not very hard 06/23/2025 PHQ-2 Answer Date Recorded PHQ-2 Total Score 0 06/23/2025 [facility] of Occupat ional Health - Occupational Stress [...] money to get more. Never true 06/23/2025 [facility] IP Transportation Answer D ate Recorded [...] 1:16 PM EDT Emiliano Jimenez RN * [place] Suicide Severity Rating Scale (Q shift for [...] EDT Office Visit [facility] [address] [place] [address] [place] [phone] Vargas Wolf MD [address] [place] [address] [place] [address] Scheduled Orders Name Type Priority Associated [...] documented as of this encounter Care Teams Social Media Content Specialist Relationship Specialty Start Date End Date No Pcp, Per Patient PCP - General 06/04/24 documented as of this encounter
--- OUTSIDE RECORDS SUMMARY | 2025-02-07 08:42 | XMS_ITS | Encounter Summary ---
Author Organization [place] [address] Care Team Providers Care Facilities Custodian Name Role Phone No Pcp, Per Patient Primary Care Provider Evelyne prabhakar Encounter Details Date Type Department Care Team (Latest Contact Info) Description 02/07/2025 8:42 AM EDT Hospital Encounter [facility] Referral Lab 1 [place], [place] [phone] Encounter for general adult medical examination without abnormal findings Social History Tobacco Use Types Packs/Day Years Used Date Smoking Tobacco: Former Cigarettes Q uit: 1991 Passive Smoke Exposure: Past Smokeless Tobacco: Never Alcohol Use Standard Drinks/Week Comments Not Currently 0 (1 standard drink = 0.6 oz pur e alcohol) [facility] Utilities Answer Date Recorded In the past 12 months has [employer], gas, oil, or water [employer] threatened to shut off services in your home? No 06/23/2025 Overall Financial Resource Strain (CARDIA) Answe r Date Recorded How hard is it for you to pa y for the very basics like food, housing, medical care, and heating? Not very hard 06/23/2025 PHQ-2 Answer Date Recorded PHQ-2 Total Score 0 06/23/2025 [facility] [place] of Occupat ional Health - Occupational Stress [...] money to get more. Never true 06/23/2025 [facility] IP Transportation Answer D ate Recorded In [...] you are drinking? 0 04/30/2025 10:00 PM EDT Nora Paez RN How often do you [...] 1:16 PM EDT Emiliano Jimenez RN * [place] Suicide Severity Rating Scale (Q shift for [...] Office Visit [facility] [address] [place] [place] [address] [place] [phone] Vargas Wolf MD [address] [place] [address] [place] [address] Scheduled Orders Name Type Priority Associated [...] documented as of this encounter Care Teams Facilities Custodian Relationship Specialty Start Date End Date No Pcp, Per Patient PCP - General 06/04/24 documented as of this encounter
--- OUTSIDE RECORDS SUMMARY | 2025-04-30 16:07 | XMS_ITS | Encounter Summary ---
Author Organization [place] [address] Care Team Providers Care Block Captain Name Role Phone No Pcp, Per Patient Primary Care Provider Evelyne prabhakar Reason for Visit * Reason Comments Wound Dehiscence Pt presents per ems from [facility], toes amputated on left foot, here for wound check. * Auth/Cert/Inpt (Routine) Specialty Diagnoses / Procedures Referred By Contac t Referred To Contact Diagnoses Wound dehiscence Referral ID Status Reason Start Date Expiration Date Visits Re quested Visits Authorized [id number] 1 1 Encounter Details Date Type Department Care Team (Latest Contact Info) Description 04/30/2025 4:07 PM EDT - 06/10/2025 4:06 PM EDT Hospital Encounter EDG 5D [facility] [address] [place] [id number] Donnie Kaur MD [address] [place] [address] [place] [address] Marcell Aguirre MD [address] [place] [address] [place] [address] Stephen Pickard MD [address] [place] [address] [place] [address] Trino Montiel MD [address] [place] [address] DR [place], [place] [phone] Wound dehiscence (Primary Dx); Typical atrial flutter (HCC); Left foot pain; PAD (peripheral artery disease); Critical limb ischemia of left lower extremity (HCC); Preop testing Discharge Disposition: [facility] Facility Social History Tobacco Use Types Packs/Day Years Used Date Smoking Tobacco: Former Cigarettes Q uit: 1991 Passive Smoke Exposure: Past Smokeless Tobacco: Never Alcohol Use Standard Drinks/Week Comments Not Currently 0 (1 standard drink = 0.6 oz pur e alcohol) [facility] Utilities Answer Date Recorded In the past [...] Date Recorded PHQ-2 Total Score 0 05/01/2025 [facility] - Occupational Stress [...] money to get more. Never true 05/01/2025 [facility] IP Transportation Answer D ate Recorded [...] 3:13 PM EDT Rosario Izaguirre M SW Feeling down, depressed, or hopeless 0 05/01/2025 3:13 PM EDT Izaguirre, Labrea, M SW PHQ-2 Total Score 0 05/01/2025 3:13 PM EDT Dmitriy, Rosario, SCHEDULE CLERK * PHQ-9 Total Score Answer Date of Assessment Author 0 05/01/2025 3:13 PM EDT Izaguirre, Lina jadeherlinda, SCHEDULE CLERK * PHQ-2 Total Score Answer Date of Assessment Author 0 05/01/2025 3:13 PM EDT Dmitriy, Lina harding, SCHEDULE CLERK * Suicide Severity Rating Answer Date of Assessment Author No Risk 04/30/2025 4:20 PM EDT Hillary Arriaza RN * [place] Suicide Severity Rating Scale (Q shift for [...] from the original note were not included. 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 Full summary Assessment & [...] for phantom pain control) 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 Asa , [...] reasons to take this nalOXone 4 mg/actuation [place] Dose: 4 mg Qty: 1 Each Refills: 0 Commonly known as: NARCAN 4 mg, Nasal, PRN, [place] the contents of one device (0.1mL) into [...] Your Medications These medications were sent to [facility] [place] [address] - [address] - [phone] [address], [facility] [address] ALPRAZolam 0.5 mg Tab carvediloL 25 mg Tab fUROsemide 40 mg Tab gabapentin 300 mg Cap latanoprost 0.005 % Drop lidocaine 4 % Ptmd nortriptyline 10 mg Cap oxyCODONE 5 mg Tab pantoprazole 40 mg Tbec Condition at Discharge: stable Disposition: SNF Follow-up: [facility] [address] [phone] Lawrence Wolf MD [address] [place] [address] [place] [address] Follow up on 06/24/2025 Staple removal on [...] Patch 06/11/2025 nalOXone (NARCAN) 4 mg/actuation Nasl [place], Non-Aerosol 0.1 mL by Nasal route as needed for Opioid Reversal. 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, via transport per [facility]. Report called to Katie MCCRAY at [facility]. Verbalized understanding. PIV removed, catheter intact, dressing [...] per week. Time In / Time Out 3237-2048 IP OT Individual Treatment Minutes 38 The [...] Pt states her DC plan [facility]jaida Bucio for [place] okay with pt coming back today and updated on Ambulance time of 1500. Pt states she will have all the help and support she needs for home. Pt states understanding of all DC medications, care needs, and follow up appointments. . Sister notified of return to [facility]. No DC needs requested by pt or identified by CC. CC will sign off. Final Note Referral to SEP Care Management (SEP patients only) N/A Discharge Round Completed Yes Post Acute Facility [facility] Post Acute Form Assign to DC iMOSPHERE No Post Acute Form Completed Yes Care Coordination Discharge Ready? Yes [facility] D[facility] Arranged at Discharge None DME Assign to DC Tech No DME completed by [facility] No Transportation at Discharge Personal vehicle Date Expected 06/10/25 Time Expected 1500 Transportation Assign to [facility] Yes Confirmed Discharge Transportation Plan? Yes Transportation setup completed by [facility] No PASAR Completed Not Applicable Patient Aware and Agrees with DC Plan Yes Primary Caregiver/Legal Decision Maker aware and agree with Discharge Plan Yes Name of Family member notified Sister Family Member Notified Relationship to Patient Power of Drawing Machine Operator Does family and/or caregiver verbalize [...] per week. Time In / Time Out 6915-4010 IP PT Treatment Minutes 40 The total [...] issues. See LDAs on flowsheet. Left AKA DEICER FINISHER with noelle C/D/I. Wound care protocol followed [...] Evaluation Actual Discharge Plan 06/09/25 SW update. [facility] had bed today. Pt was not medically stable to pa today. If dc on Tuesday, Will need ambulance at pa. Sister request a call at pa date. Post accute completed. Waiting for bed available at [facility]. 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 Asa , [...] mellitus, without long-term current use of insulin ([facility]) S/P transmetatarsal amputation of foot, [...] on real time basis 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 Asa , [...] Paroxysmal atrial fibrillation (HCC) 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 Type 2 [...] 11:33 AM EDTAssociated Problem(s): 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 Asa , [...] mellitus, without long-term current use of insulin ([facility]) S/P transmetatarsal amputation of foot, left ([facility]) - Wound dehiscence over previous [...] on real time basis 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 Asa , statin and renexa Paroxysmal atrial fibrillation (HCC) Acute on chronic heart failure with preserved ejection fraction (HCC) - 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 - had been holding coreg for lower BPs - restart now with hold parameters as BP increased Hypertension associated with diabetes ([facility]) - A1c 5.3 - diet [...] Paroxysmal atrial fibrillation (HCC) 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 Type 2 [...] 06/08/25 SW update. Spoke with Lottie at [facility]. Currently no beds available. [facility] continue to monitor pt for hallucinations. Will need ambulance at dc. Sister requesta call at dc date. Post accute completed. Waiting for bed available at [facility]. SW following * Amna Ferris, RN - [...] >980 Straight cath= 800ml Awaiting placement at [facility] * Arnaud Mata, PT - 06/07/2025 4:59 [...] per week. Time In / Time Out 2333-7834 IP PT Treatment Minutes 33 The total time spent caring for this patient included but was not limited to hands-on treatment;medical record review;communication and education with patient and/or family/caregiver;clinical judgement necessary for treatment planning for next session;communication with nursing and/or care coordinat ion/social work regarding patient status and discharge planning * Rhina Nunez RD,LD - 06/07/2025 12:[address] [facility] Nutrition Reassessment Evidence Supported Malnutrition Diagnosis: No malnutrition identified Nutrition Problem/Diagnosis: Nutrition Diagnosis Problem 1: Increased nutrient needs (specify) (kcal and pro) related to increased demand for energy/nutrients as evidenced by wounds. Status: Active nutrition diagnosis Nutrition Prescription: Kcals: 1038-4194 kcal (25-30 kcal/kg using 52.1 kg) Protein (g): 62-78 gm Protein needs based on: 1.2-1.5 gm/kg Fluid (ml): 1 mL/kcal Other (comment): Reviewed 06/07 Plan/Interventions: Meals and Snacks: Regular Medical Food Supplements: Glucerna Therapeutic Medical Food/Supplement Freq: 1xday - [place] Nutrition-Related Medication Management: Lasix, Protonix Nutrition Education: [...] Stool Occurrence: 1 Stool Appearance: Type 4 [place] Stool Chart Stool Color: Brown Stool Amount: [...] mellitus, without long-term current use of insulin ([facility]) - Wound dehiscence over previous [...] 12:27 PM EDTAssociated Problem(s): 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 Asa , [...] mellitus, without long-term current use of insulin ([facility]) S/P transmetatarsal amputation of foot, [...] on real time basis 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 Asa , [...] Paroxysmal atrial fibrillation (HCC) 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 Type 2 [...] spoke with son on phone, met with [facility] liaison, noted hallucianations last jhony, facility would [...] complaints of pain to L AKA, incision DEICER FINISHER with noelle, incision beta- dined. Hypoactive bowel sounds. Skin assessed, ST to L FA, mepilex foam in place. Coccyx/bilateral buttocks red but blanchable, zinc cream applied. MASD noted to gluteal split, left DEICER FINISHER. Inner ana area/labia with redness, powder ordered. Pt using bedpan. Pt updated on plan of care, still waiting on bed at [facility]. 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 Asa , [...] on real time basis 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 Asa , [...] Paroxysmal atrial fibrillation (HCC) 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 Type 2 [...] with son on phone, no bed at [facility] this date, optimizing pain meds, post acute [...] encouragement Others Present/Assisting MIKE Shipman / MAHENDRA Ernstconsulting solution manager Information This progress note will serve as [...] CP -> PE ruled out 05/29 d/c TRACK MACHINE OPERATOR REPAIRER 06/05 Awaiting bed at [facility] Precautions Therapy Precautions Yes Weight Bearing Status [...] per week. Time In / Time Out 8951-2800 (23 minutes) IP OT Individual Treatment Minutes [...] CP -> PE ruled out 05/29 d/c TRACK MACHINE OPERATOR REPAIRER Pain Screening PT/OT Patient Currently in Pain [...] per week. Time In / Time Out 2500-1015 (4206-7958) IP PT Treatment Minutes 23 The total [...] EDT Palliative Care Progress Note Consult Location: [facility] Length of Stay: 35 Assessment: Skyler Bautista [...] is slowly improving. She was transferred to [facility] from ICU last week. Decisional Capacity:Fully Decisional [...] 12:46 PM EDTAssociated Problem(s): 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 Asa , [...] pressure 41 mmHg - diuresis * Trino Motniel MD - 06/05/2025 12:46 PM EDTAssociated Problem(s): Metabolic encephalopathy resolved * Trino Montiel MD - 06/05/2025 12:46 PM EDTAssociated Problem(s): Acute cystitis without hematuria - ESBL producing proteus on cx. 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 Asa , statin and renexa Paroxysmal atrial fibrillation (HCC) Acute on chronic heart failure with preserved ejection fraction (HCC) - 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 - had been holding coreg for lower BPs - restart now with hold parameters as BP increased Hypertension associated with diabetes ([facility]) - A1c 5.3 - diet [...] by specialist Goals of care, counseling/discussion Pancytopenia ([facility]) Acute respiratory failure with hypoxemia [...] Paroxysmal atrial fibrillation (HCC) 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 Type 2 [...] Nunez RD,LD - 06/05/2025 11:[address] [facility] Nutrition Malnutrition Reassessment Evidence Supported Malnutrition Diagnosis: No malnutrition identified Nutrition Problem/Diagnosis: Nutrition Diagnosis Problem 1: Increased nutrient needs (specify) (kcal and pro) related to increased demand for energy/nutrients as evidenced by wounds. Status: Active nutrition diagnosis Nutrition Prescription: Kcals: 1670-4138 kcal (25-30 kcal/kg using 52.1 kg) Protein (g): 62-78 gm Protein needs based on: 1.2-1.5 gm/kg Fluid (ml): 1 mL/kcal Other (comment): Reviewed 06/05 Plan/Interventions: Meals and Snacks: Regular Medical Food Supplements: Glucerna Therapeutic Medical Food/Supplement Freq: 1xday - [place] Nutrition-Related Medication Management: Protonix Nutrition Education: Importance [...] Stool Occurrence: 1 Stool Appearance: Type 5 [place] Stool Chart Stool Color: Brown Stool Amount: [...] CP -> PE ruled out 05/29 d/c TRACK MACHINE OPERATOR REPAIRER Precautions Therapy Precautions Yes Weight Bearing Status [...] per week. 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 Time In / Time Out 1461-9345 IP PT Treatment Minutes 38 The total [...] Up Treatment Attempt PT Subjective Comments #[id number] Others Present/Assisting patient requesting therapy return later [...] CP -> PE ruled out 05/29 d/c TRACK MACHINE OPERATOR REPAIRER Precautions Precaution Info Given Yes;Contact;To use call [...] per week. Time In / Time Out 9877-7119 (23 minutes) IP OT Individual Treatment Minutes [...] CP -> PE ruled out 05/29 d/c TRACK MACHINE OPERATOR REPAIRER Pain Screening PT/OT Patient Currently in Pain [...] per week. Time In / Time Out 1813-3063 (1439-1519) IP PT Treatment Minutes 23 Updated PT note needed in next 24hrs? Request addressed by PT * Adry Alcazar - 06/03/2025 12:45 PM EDT 06/03/25 1245 Palliative interventions Spiritual support Spiritual support and counseling by palliative professional for patient Palliative Care Director Database Pastoral Care Interventions Spiritual-emotional support;Prayer Spiritual acuity Normal complexity Care Plan Follow up 1-2x/week (Palliative Care Director Database following) Length of time in minutes spent with pt/family/chart review 45 Referred By (Palliative Care follow up visit) Palliative Care hair dryer follow up visit. Patient shared that she is experiencing a lot of pain, and endorses that it has been gradually increasing. She also expressed fear that the increase in pain is indicative of more infection. Patient informed check writer salesperson that she would like to speak with someone ab out what to expect with regard to pain going forward, as well as the risk of the infection returning. Director Database communicated pt's request to nurse/MAHENDRA Colbert. Patient continues to acknowledge that her treasure in the God is providing her comfort at this time. She was receptive to prayer, which check writer salesperson provided. 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 Trasferrin down - follow trend * Stephne Pickard MD - 06/03/2025 7:21 AM EDTAssociated [...] approx 0.9-1.2. 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 [...] not ambulating at this time. 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 - History [...] speakerphone, discussed d/c plan, plan remains to [facility] per pt and son, possible bed over weekend per liaison, s/p AKA, will need ambulance transport, post acute previously completed, CC following. Completed by CC/SW Yes * Cely Montoya RN - 05/31/2025 12:45 PM EDT Pt refusing insulin, states that she is allergic to it. Made Dr. Pickard aware. * Melvin Elizondo RD,LD - 05/31/2025 11:[address] [facility] Nutrition Reassessment Evidence Supported Malnutrition Diagnosis: No malnutrition identified. Nutrition Problem/Diagnosis: Nutrition Diagnosis Problem 1: Increased nutrient needs (specify) (kcal and pro) related to increased demand for energy/nutrients as evidenced by wounds. Status: Active nutrition diagnosis Nutrition Prescription: Kcals: 7006-0131 kcal (25-30 kcal/kg using 52.1 kg) Protein [...] Occurrence: 1 Stool Appearance: (!) Type 6 [place] Stool Chart Stool Color: Brown Stool Amount: [...] #1 Pt agreeable to therapy Others Present/Assisting SOCIAL SERVICE COORDINATOR Discharge Information This progress note will serve [...] CP -> PE ruled out 05/29 d/c TRACK MACHINE OPERATOR REPAIRER Pain Screening PT/OT Patient Currently in Pain [...] 8:02 AM EDTAssociated Problem(s): 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 - History [...] mellitus, without long-term current use of insulin ([facility]) - A1c 5.3 - diet controlled - not following FSBS Hypertension associated with diabetes ([facility]) - meds held for lows Chronic heart failure with preserved ejection fraction (HCC) - Echo 2023 normal EF. - Euvolemic on exam - repeat echo as above Stage 3a chronic kidney disease (HCC) - Baseline approx 0.9-1.2. 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 - History [...] with others and complete iv abx at [facility] Estimated Date of Discharge: 05/31/2025 VTE Prophylaxis: [...] CP -> PE ruled out 05/29 d/c TRACK MACHINE OPERATOR REPAIRER Precautions Precaution Info Given Yes;To use call [...] Functional Percentage 59.67 AM PAC Daily Activity [facility] G Code Modifier CK Education Education To [...] per week. Time In / Time Out 1629-1423 (41 minutes) IP OT Individual Treatment Minutes [...] - rate controlled on coreg * Stephen iPckard MD - 05/30/2025 11:39 AM EDTAssociated Problem(s): [...] 11:39 AM EDTAssociated Problem(s): 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 - History [...] approx 0.9-1.2. 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 - History [...] MD 05/30/2025 11:34 AM * Nicole Zaidi, SHOWROOM EXECUTIVE DIRECTOR - 05/30/2025 9:03 AM EDT 05/30/25 0903 [...] over to left side of bed for check writer salesperson to have better angle to wrapstump; (D) [...] Olivia RD,LD - 05/29/2025 3:[address] [facility] Nutrition Reassessment Nutrition Problem/Diagnosis: Nutrition Diagnosis Problem 1: Increased nutrient needs (specify) (kcal and pro) related to increased demand for energy/nutrients as evidenced by wounds. Status: Active nutrition diagnosis Nutrition Prescription: Kcals: 3481-3025 kcal (25-30 kcal/kg using 52.1 kg) Protein [...] Stool Occurrence: 1 Stool Appearance: Type 5 [place] Stool Chart, Type 4 [place] Stool Chart Stool Color: Brown Stool Amount: [...] pain remains an issue. No better with TRACK MACHINE OPERATOR REPAIRER. Will stop that and adjust prns * [...] pain remains an issue. No better with TRACK MACHINE OPERATOR REPAIRER. Will stop that and adjust prns * [...] 11:24 AM EDTAssociated Problem(s): 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 - History [...] pain remains an issue. No better with TRACK MACHINE OPERATOR REPAIRER. Will stop that and adjust prns PAD [...] approx 0.9-1.2. 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 - History [...] Type Follow Up Treatment Attempt Patient Room/Unit 6169 Therapy delay reason Patient not feeling well (Pt in pain, attempting to rest - pt declines therapy at this time. Will follow up as time allows.) * Rhina Duval RN - 05/29/2025 10:27 AM EDT WOUND CARE Consulted for right nostril and bilateral ears. Pt seen on 5D. Upon assessment, pt with TRACK MACHINE OPERATOR REPAIRER pump and nasal cannula in place. Bilateral ears are red and blanchable. No redness or irritation noted to nostrils. Recommend to follow medical research associate prevention protocol, can utilize oxygen tubing foams or mepilex lite foam. Encourage continuation of preventative interventions such as frequent repositioning/ scheduled turns, as well as offloading bilateral heels. Patient is on a low air loss sleep surface to manage the microclimate of the skin (ensure function is on). Orders updated in [facility]. Will not actively follow at this time, [...] has C/O left leg pain managed with TRACK MACHINE OPERATOR REPAIRER pump infusing Hydromorphone and at midnight she [...] Bladder armstrong done, 454 ml urine noted, ACCOUNTING OFFICE MANAGER notified, instructed to do straight cath until [...] Rhythm: atrial fibrillation - controlled Rate: tachycardia [place]: normal Ectopy: premature ventricular contractions (infrequent) Conduction: [...] has received blood products, and remains on TRACK MACHINE OPERATOR REPAIRER for pain, and multiple antibiotics. Pt meets criteria for LTACH level of care. Sw has sent proactive referral to LTACH to evaluate for appropriateness. Sw has sent family information on LTACH level of care, Sw met with pt and resources on LTACH level of care. Proactive referral sent to ltach to evaluate for appropriateness. * Marj Peña [facility] - 05/28/2025 2:14 PM EDT Pharmacy Note [...] EDT Palliative Care Progress Note Consult Location: [facility] Length of Stay: 27 Assessment: Skyler Bautista [...] Oxy-IR 15mg q4 hrs prn + Hydromorphone TRACK MACHINE OPERATOR REPAIRER Pump(started today per ICU team) Opioid Induced Constipation: Polyethylene glycol 17 g BID PRN Psychosocial distress: anticipatory grief, change in QoL and loss on independence. Spiritual distress: See [facility] Director Database note for additional details. [facility] will continue [...] Patient seen with our HPM fellow and Director Databaseankush Rider and agree with Dr. Steen's notes. [...] control now the issue again. Will start TRACK MACHINE OPERATOR REPAIRER today to attempt to quantify narcotic requirement. 2. Hypotension, improved. Stable 3. History of HFpEF. 4. Peripheral artery disease, holding full anticoagulation until hemoglobin stabilizes. 5. Anemia, still downtrending. Received 1 unit of packed red blood cells 05/26. 6. Acute hypoxemic respiratory failure, improved/resolved, now on room air. 7. CKD, creatinine is stable, continue to avoid nephrotoxins 8. Type 2 diabetes: Continue ICU private pilot 9. 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 When she transfers, critical care will sign [...] AM EDT Daily Status Update Add dilaudid TRACK MACHINE OPERATOR REPAIRER Transfer? Family Does the patient have family present? Yes, offer family to join rounds Ventilator SpO2: 96 % (05/28/25 0400) Ventilator: No Airway LDAs None Quintanilla Score: (not recorded) No results for input(s): PFRATIO in the last 72 hours. 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 Patient's son/Edgar [...] as well as gratitudefor her family's support. Audit Senior Associate prayed with pt and family and will continue to follow. Adry Alcazar, [facility] Director Database, Palliative Care * Robby Thomas MD - 05/27/2025 3:40 PM EDT Palliative Care Progress Note Consult Location: [facility] Length of Stay: 26 Assessment: Skyler Bautista [...] nephrotoxins 8. Type 2 diabetes: Continue ICU private pilot 9. Diabetic foot infection status post [...] congestion, bilateral pleural effusions. * Kesha Sams, [facility] - 05/27/2025 2:27 PM EDT Pharmacy Note [...] per week. Time In / Time Out [id number] IP OT Individual Treatment Minutes 38 The [...] Owusu RD,LD - 05/27/2025 9:[address] [facility] Nutrition Malnutrition Reassessment Evidence Supported Diagnosis: No malnutrition identified In the context of: Nutrition Problem/Diagnosis: Nutrition Diagnosis Problem 1: Increased nutrient needs (specify) (kcal and pro) related to increased demand for energy/nutrients as evidenced by wounds. 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 Below is a summary of my pertinent independent evaluation and findings in addition to the assessment and plan formulated by the physician real estate administrative assistant. 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 - Euvolemic on exam Stage 3a chronic kidney disease (HCC) - Baseline approx 0.9-1.2. 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 - Euvolemic on exam Stage 3a chronic kidney disease (HCC) - Baseline approx 0.9-1.2. 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 Patient shared that her conversation with Dr. [...] and family were receptive to prayer, which check writer salesperson offered. [facility] hair dryer will continue to follow. 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 Per [place] ROLLER SKATER, she spoke with pt and she is [...] placement consent form previouslycompleted. Pharmacy updated in [place]. Pt will need ambulance transport at discharge. 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 Had long discussion with patient and [...] like to obtain one pre-op. NPO past md. Lawrence Wolf MD * Lauren Turk OT - 05/23/2025 8:55 AM EDT 05/23/25 0855 OT Subjective Note Type Chart Review;Follow Up Treatment Attempt Patient Room/Unit 3318 Therapy delay reason Awaiting post procedure orders (comment) Clinical Course Noted planned AKA 05/24/25 * Leti Jefferson APRN - 05/22/2025 3:56 PM EDT Palliative Care Progress Note Consult Location: [facility] Length of Stay: 21 Assessment: Skyler Bautista [...] loss on independence. Spiritual distress: See [facility] Director Database note for additional details. [facility] will continue [...] patient sharing she was not familiar with. [facility] has offered [facility] meeting with her sons involvement [...] Adry Alcazar 05/22/2025 3:47 PM EDT 05/22/25 0153 Palliative interventions Spiritual support Spiritual support and counseling by palliative professional for patient Palliative Care Social Work Total time in minutes spent in the provision of Palliative Care 60 Palliative Care Director Database Pastoral Care Interventions Goals of care counseling/education;Spiritual- emotional support Spiritual acuity Normal complexity Care Plan ([facility] Director Database will follow up 05/23) Length of time in minutes spent with pt/family/chart review 60 Referred By (Palliative Care follow up) Palliative Care ACCOUNTING OFFICE MANAGER/B.Jefferson and Director Database follow up with patient regarding her decision [...] look like after the amputation. After Palliative ACCOUNTING OFFICE MANAGER/Jefferson explained the possibilities of being bed or wheelchair bound, pt expressed fear - in both words and facial expression - that this would be a horrible way to live if it became reality. Patient reported that she has not shared her fears with sons. Director Database encouraged her to think about further conversation with them in light of this new worry. Patient stated that she will give this some thought today and tomorrow. Audit Senior Associate committed to returning to bedside on 05/23 in the morning to see how pt feels about a possible family meeting. Patient confirmed that her treasure remains strong, and that she trusts that the Lord will be with herin whatever path she chooses. Adry Alcazar, [facility] Director Database, Palliative Care * Coleman Moss COTA - [...] Assessed Edge of bed Feeding Assistance Moderate;supervisor fitting/use appropriate utensil;Bring food/cup to mouth;Scoop/spear food with [...] therapy recommended. 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 - History [...] NOTE Assessment & Plan Diabetic foot infection ([facility]) S/P transmetatarsal amputation of foot, left ([facility]) - Wound dehiscence over previous [...] for amputation as above Paroxysmal atrial fibrillation ([facility]) - 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 - rate controlled on coreg Type 2 diabetes mellitus, without long-term current use of insulin ([facility]) - A1c 5.3 - diet controlled - not following FSBS Hypertension associated with diabetes ([facility]) - at goal on current rx at 128/67 Chronic heart failure with preserved ejection fraction ([facility]) - Echo 2023 normal EF. - Euvolemic on exam Stage 3a chronic kidney disease ([facility]) - Baseline approx 0.9-1.2. 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 Nutrition Reassessment Nutrition Problem/Diagnosis: Nutrition Diagnosis Problem 1: Increased nutrient needs (specify) (kcal and pro) related to increased demand for energy/nutrients as evidenced by wounds. Status: New nutrition diagnosis Nutrition Prescription: Kcals: 5043-9359 kcal (25-30 kcal/kg, based on 54.4 kg) [...] Stool Occurrence: 1 Stool Appearance: Type 5 Sidney Stool Chart Stool Color: Brown Stool Amount: [...] for walker. Pt then transfered bed to [facility] back to bed. (I) with hygiene. Gait [...] therapy recommended. 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 - 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 - SHOWROOM EXECUTIVE DIRECTOR coreg Type 2 diabetes mellitus, without long-term current use of insulin ([facility]) - A1c 5.3 - diet controlled - not following FSBS Hypertension associated with diabetes ([facility]) - at goal on current rx Chronic heart failure with preserved ejection fraction ([facility]) - Echo 2023 normal EF. - Euvolemic on exam Stage 3a chronic kidney disease ([facility]) - Baseline approx 0.9-1.2. 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 - SHOWROOM EXECUTIVE DIRECTOR coreg - cardiac monitoring -Rate controlled 05/20/25 * Carlos Manuel Landaverde II, MD - 05/20/2025 12:54 PM EDTAssociated Problem(s): Type 2 diabetes mellitus, without long-term current use of insulin (HCC) Last A1c 4.8 in 03/2024. SHOWROOM EXECUTIVE DIRECTOR meds include none. - hold off on FSBS, correctional algorithm - rpt A1c 5.3 - stable 05/20/25 * Carlos Manuel Landaverde II, MD - 05/20/2025 12:54 PM EDTAssociated Problem(s): Hypertension associated with diabetes (HCC) Well controlled. - SHOWROOM EXECUTIVE DIRECTOR coreg - monitor and adjust as needed -BP stable 05/20/25 * Carlos Manuel Landaverde II, MD - 05/20/2025 12:54 PM EDTAssociated Problem(s): Acute on chronic heart failure with preserved ejection fraction (HCC) Echo 2023 normal EF. Euvolemic on exam - monitor I/O, daily weights - diuresis: SHOWROOM EXECUTIVE DIRECTOR lasix on hold - SHOWROOM EXECUTIVE DIRECTOR coreg -Stable 05/20/25 * Carlos Manuel Landaverde II, MD - 05/20/2025 12:54 PM EDTAssociated Problem(s): Stage 3a chronic kidney disease (HCC) Cre 1.05 at admit. Baseline approx 0.9-1.2. 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 Pt will need an ambulance transport.Pharmacy [...] arterial studies 05/02 with significant PAD - BARREL RIBS SOLDERER stenosis Patent popliteal and TPT with severe stenosis Patent proximal SHOWROOM EXECUTIVE DIRECTOR but occluded distally without reconstitution Patent DAREN with multifocal severe stenosis, occlusion at the level of the ankle and no distal reconstitution Significant small vessel disease in L foot Paroxysmal atrial fibrillation (HCC) Heart rate controlled. 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 - SHOWROOM EXECUTIVE DIRECTOR coreg - cardiac monitoring -Rate controlled 05/20/25 Type 2 diabetes mellitus, without long-term current use of insulin (HCC) Last A1c 4.8 in 03/2024. SHOWROOM EXECUTIVE DIRECTOR meds include none. - hold off on FSBS, correctional algorithm - rpt A1c 5.3 - stable 05/20/25 Hypertension associated with diabetes (HCC) Well controlled. - SHOWROOM EXECUTIVE DIRECTOR coreg - monitor and adjust as needed -BP stable 05/20/25 Chronic heart failure with preserved ejection fraction (HCC) Echo 2023 normal EF. Euvolemic on exam - monitor I/O, daily weights - diuresis: SHOWROOM EXECUTIVE DIRECTOR lasix on hold - SHOWROOM EXECUTIVE DIRECTOR coreg -Stable 05/20/25 Stage 3a chronic kidney disease (HCC) Cre 1.05 at admit. Baseline approx 0.9-1.2. 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 SHOWROOM EXECUTIVE DIRECTOR meds include none. - hold off on [...] and Coping Resources Meaning, ez, support in mormon practices;Meaningful relationship or connection with God Care Plan Plan for Follow-Up Director Database(s) remains available as needed Add to Follow Up List No Zurdo Dennison Director Database, Pastoral and Spiritual Care For non-urgent requests, please place a Pastoral Care consult in [facility]. For all urgent matters, please send an urgent [facility] Secure Chat to the Pastoral Care group at your location. Between 11pm and 7am, please use On-Call Finder to send an [facility] Secure Chat to the on-call hair dryer. Pastoral Care office phone numbers: EDG/COV/GRT [phone], [place] [phone], FTT [phone], DBN [phone] * Carlos Manuel Landaverde II, MD - 05/19/2025 11:25 AM EDTAssociated Problem(s): PAD (peripheral artery disease) History of angiogram 01/2025. - vascular consulted - arterial studies 05/02 with significant PAD - BARREL RIBS SOLDERER stenosis Patent popliteal and TPT with severe stenosis Patent proximal SHOWROOM EXECUTIVE DIRECTOR but occluded distally without reconstitution Patent DAREN with multifocal severe stenosis, occlusion at the level of the ankle and no distal reconstitution Significant small vessel disease in L foot * Carlos Manuel Landaverde II, MD - 05/19/2025 11:25 AM EDTAssociated Problem(s): Paroxysmal atrial fibrillation (HCC) Heart rate controlled. 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 - SHOWROOM EXECUTIVE DIRECTOR coreg - cardiac monitoring -Rate controlled 05/19/25 * Carlos Manuel Landaverde II, MD - 05/19/2025 11:25 AM EDTAssociated Problem(s): Hypertension associated with diabetes (HCC) Well controlled. - SHOWROOM EXECUTIVE DIRECTOR coreg - monitor and adjust as needed -BP stable 05/19/25 * Carlos Manuel Landaverde II, MD - 05/19/2025 11:25 AM EDTAssociated Problem(s): Acute on chronic heart failure with preserved ejection fraction (HCC) Echo 2023 normal EF. 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 - SHOWROOM EXECUTIVE DIRECTOR coreg - cardiac monitoring -Rate controlled 05/19/25 Type 2 diabetes mellitus, without long-term current use of insulin (HCC) Last A1c 4.8 in 03/2024. SHOWROOM EXECUTIVE DIRECTOR meds include none. - hold off on FSBS, correctional algorithm - rpt A1c 5.3 - stable 05/19/25 Hypertension associated with diabetes (HCC) Well controlled. - SHOWROOM EXECUTIVE DIRECTOR coreg - monitor and adjust as needed -BP stable 05/19/25 Chronic heart failure with preserved ejection fraction (HCC) Echo 2023 normal EF. Euvolemic on exam - monitor I/O, daily weights - diuresis: SHOWROOM EXECUTIVE DIRECTOR lasix on hold - SHOWROOM EXECUTIVE DIRECTOR coreg -Stable 05/19/25 Stage 3a chronic kidney disease (HCC) Cre 1.05 at admit. Baseline approx 0.9-1.2. 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 History of [...] Paroxysmal atrial fibrillation (HCC) 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 Type 2 [...] visit 05/18/25 Visited With Patient Visited By Director Database Referral Source Director Database Reason for Visit Spiritual, emotional or social support Patient Assessment Patient Appears Tearful;Positive (Skyler has a strong treasure in God, prays often, appreciates prayer and PC support) Patient Buddhism at Registration Cheondoism Patient Buddhism Upon Assessment Cheondoism Spiritual Strengths and Coping Resources Meaningful relationship or connection with God Spiritual and Emotional Concerns Fear (fear concerning upcoming procedure; despite fears, Skyler shared she trusts God ultimately, no matter what happens) Patient Spiritual Wellbeing Appears to be coping adequately Interventions with Patient Relationship Building Interventions Cultivated a relationship of care and support;Listened empathetically Cheondoism Interventions Prayer with patient or family Exploration Interventions Helped identify and clarify feelings or concerns Outcomes Expressed Outcomes Appreciative of prayer/ritual;Appreciative of visit;Able to discuss emotions Care Plan Plan for Follow-Up Director Database(s) will continue to follow throughout admission Add to Follow Up List Yes Khalida Schultz Director Database, Pastoral and Spiritual Care For non-urgent requests, please place a Pastoral Care consult in [facility]. For all urgent matters, please send an urgent [facility] Secure Chat to the Pastoral Care group at your location. Between 11pm and 7am, please use On-Call Finder to send an [facility] Secure Chat to the on-call hair dryer. Pastoral Care office phone numbers: EDG/COV/GRT [phone], [place] [phone], FTT [phone], DBN [phone] * Carlos Manuel Landaverde II, MD - [...] arterial studies 05/02 with significant PAD - BARREL RIBS SOLDERER stenosis Patent popliteal and TPT with severe stenosis Patent proximal SHOWROOM EXECUTIVE DIRECTOR but occluded distally without reconstitution Patent DAREN with multifocal severe stenosis, occlusion at the level of the ankle and no distal reconstitution Significant small vessel disease in L foot * Carlos Manuel Landaverde II, MD - 05/18/2025 8:38 AM EDTAssociated Problem(s): Paroxysmal atrial fibrillation (HCC) Heart rate controlled. 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 - SHOWROOM EXECUTIVE DIRECTOR coreg - cardiac monitoring -Rate controlled 05/18/25 * Carlos Manuel Landaverde II, MD - 05/18/2025 8:38 AM EDTAssociated Problem(s): Type 2 diabetes mellitus, without long-term current use of insulin (HCC) Last A1c 4.8 in 03/2024. SHOWROOM EXECUTIVE DIRECTOR meds include none. - hold off on FSBS, correctional algorithm - rpt A1c 5.3 * Carlos Manuel Landaverde II, MD - 05/18/2025 8:38 AM EDTAssociated Problem(s): Hypertension associated with diabetes (HCC) Well controlled. - SHOWROOM EXECUTIVE DIRECTOR coreg - monitor and adjust as needed -BP stable 05/18/25 * Carlos Manuel Landaverde II, MD - 05/18/2025 8:38 AM EDTAssociated Problem(s): Acute on chronic heart failure with preserved ejection fraction (HCC) Echo 2023 normal EF. Euvolemic on exam - monitor I/O, daily weights - diuresis: SHOWROOM EXECUTIVE DIRECTOR lasix on hold - SHOWROOM EXECUTIVE DIRECTOR coreg -Stable 05/18/25 * Carlos Manuel Landaverde II, MD - 05/18/2025 8:38 AM EDTAssociated Problem(s): 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 History of [...] arterial studies 05/02 with significant PAD - BARREL RIBS SOLDERER stenosis Patent popliteal and TPT with severe stenosis Patent proximal SHOWROOM EXECUTIVE DIRECTOR but occluded distally without reconstitution Patent DAREN with multifocal severe stenosis, occlusion at the level of the ankle and no distal reconstitution Significant small vessel disease in L foot Paroxysmal atrial fibrillation (HCC) Heart rate controlled. 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 - SHOWROOM EXECUTIVE DIRECTOR coreg - cardiac monitoring -Rate controlled 05/18/25 Type 2 diabetes mellitus, without long-term current use of insulin ([facility]) Last A1c 4.8 in 03/2024. SHOWROOM EXECUTIVE DIRECTOR meds include none. - hold off on FSBS, correctional algorithm - rpt A1c 5.3 Hypertension associated with diabetes ([facility]) Well controlled. - SHOWROOM EXECUTIVE DIRECTOR coreg - monitor and adjust as needed -BP stable 05/18/25 Chronic heart failure with preserved ejection fraction ([facility]) Echo 2023 normal EF. Euvolemic on exam - monitor I/O, daily weights - diuresis: SHOWROOM EXECUTIVE DIRECTOR lasix on hold - SHOWROOM EXECUTIVE DIRECTOR coreg -Stable 05/18/25 Stage 3a chronic kidney disease ([facility]) Cre 1.05 at admit. Baseline approx 0.9-1.2. 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 Nutrition Malnutrition Reassessment Evidence Supported Diagnosis: No malnutrition identified Nutrition Prescription: Kcals: 6607-2164 kcal (25-30 kcal/kg, based on 54.4 kg) [...] therapy recommended. Time In / Time Out [id number]/[id number] IP OT Individual Treatment Minutes 33 * [...] therapy recommended. 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 NORA called and updated Roxanna with [facility]. They will still continue to follow. Post acute placement consent form previously completed. Pharmacy updated in [place]. Pt will need ambulance transport at discharge. [...] arterial studies 05/02 with significant PAD - BARREL RIBS SOLDERER stenosis Patent popliteal and TPT with severe stenosis Patent proximal SHOWROOM EXECUTIVE DIRECTOR but occluded distally without reconstitution Patent DAREN with multifocal severe stenosis, occlusion at the level of the ankle and no distal reconstitution Significant small vessel disease in L foot * Carlos Manuel Landaverde II, MD - 05/17/2025 9:16 AM EDTAssociated Problem(s): Paroxysmal atrial fibrillation (HCC) Heart rate controlled. 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 - SHOWROOM EXECUTIVE DIRECTOR coreg - cardiac monitoring -Rate controlled 05/17/25 * Carlos Manuel Landaverde II, MD - 05/17/2025 9:16 AM EDTAssociated Problem(s): Type 2 diabetes mellitus, without long-term current use of insulin (HCC) Last A1c 4.8 in 03/2024. SHOWROOM EXECUTIVE DIRECTOR meds include none. - hold off on FSBS, correctional algorithm - rpt A1c 5.3 * Carlos Manuel Landaverde II, MD - 05/17/2025 9:16 AM EDTAssociated Problem(s): Hypertension associated with diabetes (HCC) Well controlled. - SHOWROOM EXECUTIVE DIRECTOR coreg - monitor and adjust as needed -BP stable 05/17/25 * Carlos Manuel Landaverde II, MD - 05/17/2025 9:16 AM EDTAssociated Problem(s): Acute on chronic heart failure with preserved ejection fraction (HCC) Echo 2023 normal EF. Euvolemic on exam - monitor I/O, daily weights - diuresis: SHOWROOM EXECUTIVE DIRECTOR lasix on hold - SHOWROOM EXECUTIVE DIRECTOR coreg -Stable 05/17/25 * Carlos Manuel Landaverde [...] arterial studies 05/02 with significant PAD - BARREL RIBS SOLDERER stenosis Patent popliteal and TPT with severe stenosis Patent proximal SHOWROOM EXECUTIVE DIRECTOR but occluded distally without reconstitution Patent DAREN with multifocal severe stenosis, occlusion at the level of the ankle and no distal reconstitution Significant small vessel disease in L foot Paroxysmal atrial fibrillation (HCC) Heart rate controlled. 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 - SHOWROOM EXECUTIVE DIRECTOR coreg - cardiac monitoring -Rate controlled 05/17/25 Type 2 diabetes mellitus, without long-term current use of insulin ([facility]) Last A1c 4.8 in 03/2024. SHOWROOM EXECUTIVE DIRECTOR meds include none. - hold off on FSBS, correctional algorithm - rpt A1c 5.3 Hypertension associated with diabetes ([facility]) Well controlled. - SHOWROOM EXECUTIVE DIRECTOR coreg - monitor and adjust as needed -BP stable 05/17/25 Chronic heart failure with preserved ejection fraction ([facility]) Echo 2023 normal EF. Euvolemic on exam - monitor I/O, daily weights - diuresis: SHOWROOM EXECUTIVE DIRECTOR lasix on hold - SHOWROOM EXECUTIVE DIRECTOR coreg -Stable 05/17/25 Stage 3a chronic kidney disease ([facility]) Cre 1.05 at admit. Baseline approx 0.9-1.2. 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 History of [...] Paroxysmal atrial fibrillation (HCC) 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 Type 2 diabetes mellitus, without long-term current use of insulin ([facility]) Hypertension associated with diabetes ([facility]) Subjective: Resting, NAD Objective: BP [...] Ordered Regular Diet DIET EFFECTIVE NOW 05/10/25 6812 Comments: Pt transfer to unit A/O VSS [...] arterial studies 05/02 with significant PAD - BARREL RIBS SOLDERER stenosis Patent popliteal and TPT with severe stenosis Patent proximal SHOWROOM EXECUTIVE DIRECTOR but occluded distally without reconstitution Patent DAREN with multifocal severe stenosis, occlusion at the level of the ankle and no distal reconstitution Significant small vessel disease in L foot * Carlos Manuel Landaverde II, MD - 05/16/2025 2:50 PM EDTAssociated Problem(s): Paroxysmal atrial fibrillation (HCC) Heart rate controlled. 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 - SHOWROOM EXECUTIVE DIRECTOR coreg - cardiac monitoring -Rate controlled 05/16/25 * Carlos Manuel Landaverde II, MD - 05/16/2025 2:50 PM EDTAssociated Problem(s): Type 2 diabetes mellitus, without long-term current use of insulin (HCC) Last A1c 4.8 in 03/2024. SHOWROOM EXECUTIVE DIRECTOR meds include none. - hold off on FSBS, correctional algorithm - rpt A1c 5.3 * Carlos Manuel Landaverde II, MD - 05/16/2025 2:50 PM EDTAssociated Problem(s): Hypertension associated with diabetes (HCC) Well controlled. - SHOWROOM EXECUTIVE DIRECTOR coreg - monitor and adjust as needed -BP stable 05/16/25 * Carlos Manuel Landaverde II, MD - 05/16/2025 2:50 PM EDTAssociated Problem(s): Acute on chronic heart failure with preserved ejection fraction (HCC) Echo 2023 normal EF. Euvolemic on exam - monitor I/O, daily weights - diuresis: SHOWROOM EXECUTIVE DIRECTOR lasix on hold - SHOWROOM EXECUTIVE DIRECTOR coreg -Stable 05/16/25 * Carlos Manuel Landaverde II, MD - 05/16/2025 2:50 PM EDTAssociated Problem(s): Stage 3a chronic kidney disease (HCC) Cre 1.05 at admit. Baseline approx 0.9-1.2. 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 - SHOWROOM EXECUTIVE DIRECTOR coreg - cardiac monitoring -Rate controlled 05/16/25 Type 2 diabetes mellitus, without long-term current use of insulin ([facility]) Last A1c 4.8 in 03/2024. SHOWROOM EXECUTIVE DIRECTOR meds include none. - hold off on FSBS, correctional algorithm - rpt A1c 5.3 Hypertension associated with diabetes ([facility]) Well controlled. - SHOWROOM EXECUTIVE DIRECTOR coreg - monitor and adjust as needed -BP stable 05/16/25 Chronic heart failure with preserved ejection fraction ([facility]) Echo 2023 normal EF. Euvolemic on exam - monitor I/O, daily weights - diuresis: SHOWROOM EXECUTIVE DIRECTOR lasix on hold - SHOWROOM EXECUTIVE DIRECTOR coreg -Stable 05/16/25 Stage 3a chronic kidney disease (HCC) Cre 1.05 at admit. Baseline approx 0.9-1.2. 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 NORA met with patient bedside. Discusseddischarge plan. She stated that she has decided to have surgery. Patient's plan at this time is to [facility] with ambulance transport. NORA will continue to [...] and not bring RW with her req Silvestre anandd>sit; educated on safety and sequencing with [...] therapy recommended. Time In / Time Out [id number] IP PT Treatment Minutes 23 The total [...] visit 05/15/25 Visited With Patient Visited By Director Database Reason for Visit Decision making;Spiritual, emotional or social support;Follow-up Patient Assessment Patient Appears Anxious;Fearful;Expressed discomfort;Lonely;Pessimistic;Resistant;Sad;Tearful;Tired;Weary Patient Buddhism at Registration Cheondoism Spiritual Strengths and Coping Resources Determination;Accepts help from others;Meaning, ez, support in mormon practices;Meaningful relationship or connection with God;Self-reflection;Resilience or adaptability;Realistic sense of self;Spends time in prayer/spiritual practices;Support system Spiritual and Emotional Concerns Fear;Concerns around dealth/dying;Concerned for family coping/well-being;Coping with chronic illness;Discouragement;Struggling to find meaning in pain/suffering;Processing decrease in mobility and independence;Sadness Patient Spiritual Wellbeing Moderate Acuity - Spiritual Distress Interventions with Patient Relationship Building Interventions Cultivated a relationship of care and support;Listened empathetically Cheondoism Interventions Prayer with patient or family Exploration Interventions Explored alternatives;Discussed illness/injury and its impact;Identified and reinforced appropriate coping strategies and strengths;Provided caring and supportive presence;Provided safe space to process emotions or concerns Empowerment Interventions Affirmed patient's experience Outcomes Expressed Outcomes Met spiritual needs;Identified priorities;Able to discuss emotions;Appreciative of visit;Appreciative of prayer/ritual;Progressed toward acceptance Care Plan Plan for Follow-Up Director Database(s) will continue to follow throughout admission Add to Follow Up List Yes Rev. Dr.. Delia Park M.Div, D.Min Director Database, Pastoral and Spiritual Care For non-urgent requests, please place a Pastoral Care consult in [facility]. For all urgent matters, please send an urgent [facility] Secure Chat to the Pastoral Care group at your location. Between 11pm and 7am, please use On-Call Finder to send an [facility] Secure Chat to the on-call hair dryer. Pastoral Care office phone numbers: EDG/COV/GRT [phone], FLORINA [phone], FTT [phone], DBN [phone] * Carlos Manuel Landaverde II, MD - [...] arterial studies 05/02 with significant PAD - BARREL RIBS SOLDERER stenosis Patent popliteal and TPT with severe stenosis Patent proximal SHOWROOM EXECUTIVE DIRECTOR but occluded distally without reconstitution Patent DAREN with multifocal severe stenosis, occlusion at the level of the ankle and no distal reconstitution Significant small vessel disease in L foot * Carlos Manuel Landaverde II, MD - 05/15/2025 2:22 PM EDTAssociated Problem(s): Paroxysmal atrial fibrillation (HCC) Heart rate controlled. 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 - SHOWROOM EXECUTIVE DIRECTOR coreg - cardiac monitoring -Heart rate 94 * Carlos Manuel Landaverde II, MD - 05/15/2025 2:22 PM EDTAssociated Problem(s): Type 2 diabetes mellitus, without long-term current use of insulin (HCC) Last A1c 4.8 in 03/2024. SHOWROOM EXECUTIVE DIRECTOR meds include none. - hold off on FSBS, correctional algorithm - rpt A1c 5.3 * Carlos Manuel Landaverde II, MD - 05/15/2025 2:22 PM EDTAssociated Problem(s): Hypertension associated with diabetes (HCC) Well controlled. - SHOWROOM EXECUTIVE DIRECTOR coreg - monitor and adjust as needed -BP stable 05/15/25 * Carlos Manuel Landaverde II, MD - 05/15/2025 2:22 PM EDTAssociated Problem(s): Acute on chronic heart failure with preserved ejection fraction (HCC) Echo 2023 normal EF. Euvolemic on exam - monitor I/O, daily weights - diuresis: SHOWROOM EXECUTIVE DIRECTOR lasix on hold - SHOWROOM EXECUTIVE DIRECTOR coreg -Stable 05/15/25 * Carlos Manuel Landaverde II, MD - 05/15/2025 2:22 PM EDTAssociated Problem(s): Stage 3a chronic kidney disease (HCC) Cre 1.05 at admit. Baseline approx 0.9-1.2. - caution with contrast - note plans for angiogram - monitor renal function closely - avoid hypotension, nephrotoxins as able * Carlos Manuel Landaverde II, MD - 05/15/2025 2:22 PM EDTAssociated Problem(s): 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 History of [...] arterial studies 05/02 with significant PAD - BARREL RIBS SOLDERER stenosis Patent popliteal and TPT with severe stenosis Patent proximal SHOWROOM EXECUTIVE DIRECTOR but occluded distally without reconstitution Patent DAREN with multifocal severe stenosis, occlusion at the level of the ankle and no distal reconstitution Significant small vessel disease in L foot Paroxysmal atrial fibrillation (HCC) Heart rate controlled. 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 - SHOWROOM EXECUTIVE DIRECTOR coreg - cardiac monitoring -Heart rate 94 Type 2 diabetes mellitus, without long-term current use of insulin ([facility]) Last A1c 4.8 in 03/2024. SHOWROOM EXECUTIVE DIRECTOR meds include none. - hold off on FSBS, correctional algorithm - rpt A1c 5.3 Hypertension associated with diabetes ([facility]) Well controlled. - SHOWROOM EXECUTIVE DIRECTOR coreg - monitor and adjust as needed -BP stable 05/15/25 Chronic heart failure with preserved ejection fraction ([facility]) Echo 2023 normal EF. Euvolemic on exam - monitor I/O, daily weights - diuresis: SHOWROOM EXECUTIVE DIRECTOR lasix on hold - SHOWROOM EXECUTIVE DIRECTOR coreg -Stable 05/15/25 Stage 3a chronic kidney disease ([facility]) Cre 1.05 at admit. Baseline approx 0.9-1.2. 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 See [facility] Director Database note for additional details. [facility] will continue [...] by palliative professional for patient Palliative Care Director Database Pastoral Care Interventions Spiritual-emotional support;Goals of care counseling/education;Prayer;Address theological questions/concerns Spiritual acuity Normal complexity Care Plan ([facility] Director Database will attempt to follow up on 05/16.) Length of time in minutes spent with pt/family/chart review 60 Referred By Palliative Care Nurse Practitioner (Everett BROWN/Mitzy) Palliative Care ROLLER SKATER/Mitzy and Director Database met with patient to talk about her [...] most important thing in her life . ROLLER SKATER/Li introduced the alternative option of pursuing hospice care, but pt did not share her thoughts about this possibility. Patient has a strong Cheondoism treasure, but questions why she continues to suffer despite praying every day for healing. Audit Senior Associate explored with patient the notion that God hears her prayers, though sometimes responds in ways that are different from what we hope. Patient acknowledged that she trusts Godis with her and takes care of her. Director Database encouraged patient to listen to what God might want to say to her heart, and pt stated that she will try to do this. Audit Senior Associate prayed with patient for God to reveal God's plan as she continues to think about whether or not to choose amputation. Patient requested follow up hair dryer visits. Audit Senior Associate will attempt to see annin on 05/16. Adry Alcazar, [facility] Director Database, Palliative Care * Shonna Park, MAHENDRA - [...] LE but she did some with transfers [id number] but didn't with static standing. May benefit [...] therapy recommended. Time In / Time Out [id number] IP PT Treatment Minutes 31 The total [...] associated with diabetes (HCC) Well controlled. - SHOWROOM EXECUTIVE DIRECTOR coreg - monitor and adjust as needed -BP stable 05/14/25 * Carlos Manuel Landaverde II, MD - 05/14/2025 2:51 PM EDTAssociated Problem(s): Acute on chronic heart failure with preserved ejection fraction (HCC) Echo 2023 normal EF. Euvolemic on exam - monitor I/O, daily weights - diuresis: SHOWROOM EXECUTIVE DIRECTOR lasix on hold - SHOWROOM EXECUTIVE DIRECTOR coreg -Stable 05/14/25 * Carlos Manuel Landaverde II, MD - 05/14/2025 2:51 PM EDTAssociated Problem(s): Goals of care, counseling/discussion Palliative Care on boad * Hallie Silva RD,LD - 05/14/2025 1:[address] [facility] Nutrition Reassessment Nutrition Prescription: Kcals: [id number] kcal (25-30 kcal/kg, based on 54.4 kg) [...] Stool Occurrence: 1 Stool Appearance: Type 4 Sidney Stool Chart Stool Color: Michael Stool Amount: [...] arterial studies 05/02 with significant PAD - BARREL RIBS SOLDERER stenosis Patent popliteal and TPT with severe stenosis Patent proximal SHOWROOM EXECUTIVE DIRECTOR but occluded distally without reconstitution Patent DAREN with multifocal severe stenosis, occlusion at the level of the ankle and no distal reconstitution Significant small vessel disease in L foot * Carlos Manuel Landaverde II, MD - 05/14/2025 10:10 AM EDTAssociated Problem(s): Paroxysmal atrial fibrillation (HCC) Heart rate controlled. 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 - SHOWROOM EXECUTIVE DIRECTOR coreg - cardiac monitoring -Heart rate 94 * Carlos Manuel Landaverde II, MD - 05/14/2025 10:10 AM EDTAssociated Problem(s): Type 2 diabetes mellitus, without long-term current use of insulin (HCC) Last A1c 4.8 in 03/2024. SHOWROOM EXECUTIVE DIRECTOR meds include none. - hold off on [...] 10:10 AM EDTAssociated Problem(s): 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 History of [...] (HCC) S/P transmetatarsal amputation of foot, left ([facility]) Wound dehiscence over previous left [...] arterial studies 05/02 with significant PAD - BARREL RIBS SOLDERER stenosis Patent popliteal and TPT with severe stenosis Patent proximal SHOWROOM EXECUTIVE DIRECTOR but occluded distally without reconstitution Patent DAREN with multifocal severe stenosis, occlusion at the level of the ankle and no distal reconstitution Significant small vessel disease in L foot Paroxysmal atrial fibrillation (HCC) Heart rate controlled. 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 - SHOWROOM EXECUTIVE DIRECTOR coreg - cardiac monitoring -Heart rate 94 Type 2 diabetes mellitus, without long-term current use of insulin ([facility]) Last A1c 4.8 in 03/2024. SHOWROOM EXECUTIVE DIRECTOR meds include none. - hold off on FSBS, correctional algorithm - rpt A1c 5.3 Hypertension associated with diabetes ([facility]) Well controlled. - SHOWROOM EXECUTIVE DIRECTOR coreg - monitor and adjust as needed -BP stable 05/14/25 Chronic heart failure with preserved ejection fraction ([facility]) Echo 2023 normal EF. Euvolemic on exam - monitor I/O, daily weights - diuresis: SHOWROOM EXECUTIVE DIRECTOR lasix on hold - SHOWROOM EXECUTIVE DIRECTOR coreg -Stable 05/14/25 Stage 3a chronic kidney disease ([facility]) Cre 1.05 at admit. Baseline approx 0.9-1.2. - caution with contrast - note plans for angiogram - monitor renal function closely - avoid hypotension, nephrotoxins as able 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 History of [...] Paroxysmal atrial fibrillation (HCC) 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 Type 2 [...] on AC d/t hx of SAH - SHOWROOM EXECUTIVE DIRECTOR coreg - cardiac monitoring -Heart rate 94 * Kaz Robertson MD - 05/13/2025 1:41 PM EDTAssociated Problem(s): Hypertension associated with diabetes (HCC) Well controlled. - SHOWROOM EXECUTIVE DIRECTOR coreg - monitor and adjust as needed [...] visit 05/13/25 Visited With Patient Visited By Director Database Reason for Visit Decision making (Pt reports she meets with doctor today.) Patient Assessment Patient Appears Fearful;Dissatisfied (Pt expressed fears/anxiety over a possible aka. Pt to meet with doctor today.) Patient Buddhism at Registration Cheondoism Spiritual Strengths and Coping Resources Hopefulness (Pt is a person of treasure/spoke of divine love and hope.) Spiritual and Emotional Concerns Struggling to find meaning in pain/suffering;Lack of peace;Fear Interventions with Patient Relationship Building Interventions Listened empathetically Cheondoism Interventions Prayer with patient or family Exploration [...] of prayer/ritual Care Plan Plan for Follow-Up Director Database(s) will continue to follow throughout admission Add [...] Paroxysmal atrial fibrillation (HCC) 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 Type 2 [...] arterial studies 05/02 with significant PAD - BARREL RIBS SOLDERER stenosis Patent popliteal and TPT with severe stenosis Patent proximal SHOWROOM EXECUTIVE DIRECTOR but occluded distally without reconstitution Patent DAREN with multifocal severe stenosis, occlusion at the level of the ankle and no distal reconstitution Significant small vessel disease in L foot * Kaz Robertson MD - 05/13/2025 9:08 AM EDTAssociated Problem(s): Type 2 diabetes mellitus, without long-term current use of insulin (HCC) Last A1c 4.8 in 03/2024. SHOWROOM EXECUTIVE DIRECTOR meds include none. - hold off on FSBS, correctional algorithm - rpt A1c 5.3 * Kaz Robertson MD - 05/13/2025 9:08 AM EDTAssociated Problem(s): Acute on chronic heart failure with preserved ejection fraction (HCC) Echo 2023 normal EF. Euvolemic on exam - monitor I/O, daily weights - diuresis: SHOWROOM EXECUTIVE DIRECTOR lasix on hold - SHOWROOM EXECUTIVE DIRECTOR coreg * Kaz Robertson MD - 05/13/2025 9:08 AM EDTAssociated Problem(s): Stage 3a chronic kidney disease (HCC) Cre 1.05 at admit. Baseline approx 0.9-1.2. - caution with contrast - note plans for angiogram - monitor renal function closely - avoid hypotension, nephrotoxins as able * Kaz Robertson MD - 05/13/2025 9:08 AM EDTAssociated Problem(s): 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 History of [...] arterial studies 05/02 with significant PAD - BARREL RIBS SOLDERER stenosis Patent popliteal and TPT with severe stenosis Patent proximal SHOWROOM EXECUTIVE DIRECTOR but occluded distally without reconstitution Patent DAREN with multifocal severe stenosis, occlusion at the level of the ankle and no distal reconstitution Significant small vessel disease in L foot Paroxysmal atrial fibrillation (HCC) Heart rate controlled. 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 - SHOWROOM EXECUTIVE DIRECTOR coreg - cardiac monitoring -Heart rate 94 Type 2 diabetes mellitus, without long-term current use of insulin ([facility]) Last A1c 4.8 in 03/2024. SHOWROOM EXECUTIVE DIRECTOR meds include none. - hold off on FSBS, correctional algorithm - rpt A1c 5.3 Hypertension associated with diabetes ([facility]) Well controlled. - SHOWROOM EXECUTIVE DIRECTOR coreg - monitor and adjust as needed -Blood pressure 113/46 Chronic heart failure with preserved ejection fraction ([facility]) Echo 2023 normal EF. Euvolemic on exam - monitor I/O, daily weights - diuresis: SHOWROOM EXECUTIVE DIRECTOR lasix on hold - SHOWROOM EXECUTIVE DIRECTOR coreg Stage 3a chronic kidney disease ([facility]) Cre 1.05 at admit. Baseline approx 0.9-1.2. - caution with contrast - note plans for angiogram - monitor renal function closely - avoid hypotension, nephrotoxins as able 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 History of [...] foot, now with peripheral vascular disease necessitating pwgwi-yal-kbwy amputation. Patient needs to decide on further surgical intervention Estimated Date of Discharge: 05/14/2025 Date of Admission: 04/30/2025 Chief Complaint: Foot pain Subjective: Patient seen and examined. Patient once again does not remember who I am despite me seeing her for the past 6 days. She just got done talking with vascular surgery who recommended an zruqi-mou-zpwf amputation. Will need to discuss with family [...] Pat Name: SKYLER BAUTISTA Department: DEPID Room: [facility] Gender: Female 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1940 Requested By: DONNIE PLUMMER Order Number: [id number] Reading MD: Isidro Kennedy Measurements Intervals [place] Rate: 134 P: 203 FL: 145 QRS: -6 QRSD: 93 T: -78 [...] for technique and Min x2 for balance. [facility] for walker management. Balance Sitting Balance 2+/5 [...] therapy recommended. Time In / Time Out [id number] IP OT Individual Treatment Minutes 42 * [...] arterial studies 05/02 with significant PAD - BARREL RIBS SOLDERER stenosis Patent popliteal and TPT with severe stenosis Patent proximal SHOWROOM EXECUTIVE DIRECTOR but occluded distally without reconstitution Patent DAREN with multifocal severe stenosis, occlusion at the level of the ankle and no distal reconstitution Significant small vessel disease in L foot * Kaz Robertson MD - 05/12/2025 10:17 AM EDTAssociated Problem(s): Paroxysmal atrial fibrillation (HCC) Heart rate controlled. 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 - SHOWROOM EXECUTIVE DIRECTOR coreg - cardiac monitoring -Heart rate 83 * Kaz Robertson MD - 05/12/2025 10:17 AM EDTAssociated Problem(s): Type 2 diabetes mellitus, without long-term current use of insulin (HCC) Last A1c 4.8 in 03/2024. SHOWROOM EXECUTIVE DIRECTOR meds include none. - hold off on FSBS, correctional algorithm - rpt A1c 5.3 * Kaz Robertson MD - 05/12/2025 10:17 AM EDTAssociated Problem(s): Hypertension associated with diabetes (HCC) Well controlled. - SHOWROOM EXECUTIVE DIRECTOR coreg - monitor and adjust as needed -Blood pressure 122/57 * Kaz Robertson MD - 05/12/2025 10:17 AM EDTAssociated Problem(s): Acute on chronic heart failure with preserved ejection fraction (HCC) Echo 2023 normal EF. Euvolemic on exam - monitor I/O, daily weights - diuresis: SHOWROOM EXECUTIVE DIRECTOR lasix on hold - SHOWROOM EXECUTIVE DIRECTOR coreg * Kaz Robertson MD - 05/12/2025 10:17 AM EDTAssociated Problem(s): Stage 3a chronic kidney disease (HCC) Cre 1.05 at admit. Baseline approx 0.9-1.2. - caution with contrast - note plans for angiogram - monitor renal function closely - avoid hypotension, nephrotoxins as able * Kaz Robertson MD - 05/12/2025 10:17 AM EDTAssociated Problem(s): 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 History of [...] arterial studies 05/02 with significant PAD - BARREL RIBS SOLDERER stenosis Patent popliteal and TPT with severe stenosis Patent proximal SHOWROOM EXECUTIVE DIRECTOR but occluded distally without reconstitution Patent DAREN with multifocal severe stenosis, occlusion at the level of the ankle and no distal reconstitution Significant small vessel disease in L foot Paroxysmal atrial fibrillation ([facility]) Heart rate controlled. 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 - SHOWROOM EXECUTIVE DIRECTOR coreg - cardiac monitoring -Heart rate 83 Type 2 diabetes mellitus, without long-term current use of insulin ([facility]) Last A1c 4.8 in 03/2024. SHOWROOM EXECUTIVE DIRECTOR meds include none. - hold off on FSBS, correctional algorithm - rpt A1c 5.3 Hypertension associated with diabetes ([facility]) Well controlled. - SHOWROOM EXECUTIVE DIRECTOR coreg - monitor and adjust as needed -Blood pressure 122/57 Chronic heart failure with preserved ejection fraction ([facility]) Echo 2023 normal EF. Euvolemic on exam - monitor I/O, daily weights - diuresis: SHOWROOM EXECUTIVE DIRECTOR lasix on hold - SHOWROOM EXECUTIVE DIRECTOR coreg Stage 3a chronic kidney disease (HCC) Cre 1.05 at admit. Baseline approx 0.9-1.2. 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1940 Requested By: DONNIE PLUMMER Order Number: [id number] Reading MD: Isidro Kennedy Measurements Intervals [place] Rate: 134 P: 203 FL: 145 QRS: -6 QRSD: 93 T: -78 [...] Visited With Patient and family/visitors Visited By Director Database Reason for Visit Spiritual, emotional or social support Patient Assessment Patient Appears Anxious;Expressed discomfort;Fearful;Grateful/Appreciative;Pleasant;Sad;Tearful Patient Buddhism at Registration Cheondoism Patient Buddhism Upon Assessment Cheondoism Spiritual Strengths and Coping Resources Meaning, ez, support in mormon practices;Accepts help from others;Acceptance of changes or limitations in health;Resilience or adaptability;Sense of security from belief system;Spends time in prayer/spiritual practices;Support system Spiritual and Emotional Concerns Appears anxious;Fear;Fears being a burden to loved ones;Sadness;Processing decrease in mobility and independence Patient Spiritual Wellbeing Low Acuity - Spiritual Discomfort Family Assessment Spiritual Strengths and Coping Resources Demonstrates positive self-esteem;Determination;Hopefulness;Meaning, ez, support in mormon practices;Sense of belonging Spiritual and Emotional Concerns Sadness Interventions with Patient Relationship Building Interventions Cultivated a relationship of care and support;Listened empathetically;Provided family support Cheondoism Interventions Prayer with patient or family Exploration Interventions Discussed illness/injury and its impact;Explored image of God in relationship to situation;Explored sources of strength and hope;Provided caring and supportive presence;Provided safe space to process emotions or concerns Empowerment Interventions Encouraged assertiveness;Encouraged patient autonomy;Encouraged self-care Interventions with Family Relationship Building Interventions Cultivated a relationship of care and support;Listened empathetically;Provided family support Cheondoism Interventions Prayer with family Exploration Interventions Provided caring and supportive presence;Provided safe space to process emotions or concerns Empowerment Interventions Affirmed individual's own spiritual journey;Affirmed family's experience Outcomes Expressed Outcomes Expressed feeling supported;Expressed comfort/peace;Appreciative of prayer/ritual;Appreciative of visit;Able to discuss emotions Care Plan Plan for Follow-Up Director Database(s) remains available as needed Add to Follow Up List Yes Rev. Dr. Delia Park M.Div, D.Min Director Database, Pastoral and Spiritual Care For non-urgent requests, please place a Pastoral Care consult in [facility]. For all urgent matters, please send an urgent [facility] Secure Chat to the Pastoral Care group at your location. Between 11pm and 7am, please use On-Call Finder to send an [facility] Secure Chat to the on-call hair dryer. Pastoral Care office phone numbers: EDG/COV/GRT [phone], [place] [phone], FTT [phone], DBN [phone] * Kaz Robertson MD - 05/11/2025 11:59 [...] arterial studies 05/02 with significant PAD - BARREL RIBS SOLDERER stenosis Patent popliteal and TPT with severe stenosis Patent proximal SHOWROOM EXECUTIVE DIRECTOR but occluded distally without reconstitution Patent DAREN with multifocal severe stenosis, occlusion at the level of the ankle and no distal reconstitution Significant small vessel disease in L foot * Kaz Robertson MD - 05/11/2025 11:59 AM EDTAssociated Problem(s): Paroxysmal atrial fibrillation (HCC) Heart rate controlled. 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 - SHOWROOM EXECUTIVE DIRECTOR coreg - cardiac monitoring -Heart rate 98 * Miryam Guzman, ACCOUNTING OFFICE MANAGER - 05/11/2025 10:04 AM EDT Images from [...] Paroxysmal atrial fibrillation (HCC) 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 Type 2 [...] mellitus, without long-term current use of insulin ([facility]) Last A1c 4.8 in 03/2024. SHOWROOM EXECUTIVE DIRECTOR meds include none. - hold off on FSBS, correctional algorithm - rpt A1c 5.3 * Kaz Robertson MD - 05/11/2025 7:12 AM EDTAssociated Problem(s): Hypertension associated with diabetes ([facility]) Well controlled. - SHOWROOM EXECUTIVE DIRECTOR coreg - monitor and adjust as needed -Blood pressure 116/76 * Kaz Robertson MD - 05/11/2025 7:12 AM EDTAssociated Problem(s): Acute on chronic heart failure with preserved ejection fraction (HCC) Echo 2023 normal EF. Euvolemic on exam - monitor I/O, daily weights - diuresis: SHOWROOM EXECUTIVE DIRECTOR lasix on hold - SHOWROOM EXECUTIVE DIRECTOR coreg * Kaz Robertson MD - 05/11/2025 7:12 AM EDTAssociated Problem(s): Stage 3a chronic kidney disease (HCC) Cre 1.05 at admit. Baseline approx 0.9-1.2. - caution with contrast - note plans for angiogram - monitor renal function closely - avoid hypotension, nephrotoxins as able * Kaz Robertson MD - 05/11/2025 7:12 AM EDTAssociated Problem(s): 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 History of [...] arterial studies 05/02 with significant PAD - BARREL RIBS SOLDERER stenosis Patent popliteal and TPT with severe stenosis Patent proximal SHOWROOM EXECUTIVE DIRECTOR but occluded distally without reconstitution Patent DAREN with multifocal severe stenosis, occlusion at the level of the ankle and no distal reconstitution Significant small vessel disease in L foot Paroxysmal atrial fibrillation (HCC) Heart rate controlled. 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 - SHOWROOM EXECUTIVE DIRECTOR coreg - cardiac monitoring -Heart rate 98 Type 2 diabetes mellitus, without long-term current use of insulin ([facility]) Last A1c 4.8 in 03/2024. SHOWROOM EXECUTIVE DIRECTOR meds include none. - hold off on FSBS, correctional algorithm - rpt A1c 5.3 Hypertension associated with diabetes ([facility]) Well controlled. - SHOWROOM EXECUTIVE DIRECTOR coreg - monitor and adjust as needed -Blood pressure 116/76 Chronic heart failure with preserved ejection fraction ([facility]) Echo 2023 normal EF. Euvolemic on exam - monitor I/O, daily weights - diuresis: SHOWROOM EXECUTIVE DIRECTOR lasix on hold - SHOWROOM EXECUTIVE DIRECTOR coreg Stage 3a chronic kidney disease ([facility]) Cre 1.05 at admit. Baseline approx 0.9-1.2. - caution with contrast - note plans for angiogram - monitor renal function closely - avoid hypotension, nephrotoxins as able 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 History of [...] BAUTISTA Department: DEPID Room: 332 Gender: Female 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1940 Requested By: DONNIE PLUMMER Order Number: [id number] Reading MD: Isidro Kennedy Measurements Intervals [place] Rate: 134 P: 203 FL: 145 QRS: -6 QRSD: 93 T: -78 [...] on AC d/t hx of SAH - SHOWROOM EXECUTIVE DIRECTOR coreg - cardiac monitoring -Heart rate 83 * Kaz Robertson MD - 05/10/2025 1:54 PM EDTAssociated Problem(s): Type 2 diabetes mellitus, without long-term current use of insulin ([facility]) Last A1c 4.8 in 03/2024. SHOWROOM EXECUTIVE DIRECTOR meds include none. - hold off on FSBS, correctional algorithm - rpt A1c 5.3 * Kaz Robertson MD - 05/10/2025 1:54 PM EDTAssociated Problem(s): Hypertension associated with diabetes ([facility]) Well controlled. - SHOWROOM EXECUTIVE DIRECTOR coreg - monitor and adjust as needed -Blood pressure 116/76 * Kaz Robertson MD - 05/10/2025 1:54 PM EDTAssociated Problem(s): Acute on chronic heart failure with preserved ejection fraction (HCC) Echo 2023 normal EF. Euvolemic on exam - monitor I/O, daily weights - diuresis: SHOWROOM EXECUTIVE DIRECTOR lasix on hold - SHOWROOM EXECUTIVE DIRECTOR coreg * Kaz Robertson MD - 05/10/2025 1:54 PM EDTAssociated Problem(s): Stage 3a chronic kidney disease (HCC) Cre 1.05 at admit. Baseline approx 0.9-1.2. - caution with contrast - note plans for angiogram - monitor renal function closely - avoid hypotension, nephrotoxins as able * Kaz Robertson MD - 05/10/2025 1:54 PM EDTAssociated Problem(s): 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 History of [...] on AC d/t hx of SAH - SHOWROOM EXECUTIVE DIRECTOR coreg - cardiac monitoring -Heart rate 83 Type 2 diabetes mellitus, without long-term current use of insulin ([facility]) Last A1c 4.8 in 03/2024. SHOWROOM EXECUTIVE DIRECTOR meds include none. - hold off on FSBS, correctional algorithm - rpt A1c 5.3 Hypertension associated with diabetes (HCC) Well controlled. - SHOWROOM EXECUTIVE DIRECTOR coreg - monitor and adjust as needed -Blood pressure 116/76 Chronic heart failure with preserved ejection fraction (HCC) Echo 2023 normal EF. Euvolemic on exam - monitor I/O, daily weights - diuresis: SHOWROOM EXECUTIVE DIRECTOR lasix on hold - SHOWROOM EXECUTIVE DIRECTOR coreg Stage 3a chronic kidney disease (HCC) Cre 1.05 at admit. Baseline approx 0.9-1.2. - caution with contrast - note plans for angiogram - monitor renal function closely - avoid hypotension, nephrotoxins as able 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 History of [...] Pat Name: SKYLER BAUTISTA Department: DEPID Room: [facility] Gender: Female 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1940 Requested By: DONNIE PLUMMER Order Number: [id number] Reading MD: Isidro Kennedy Measurements Intervals [place] Rate: 134 P: 203 FL: 145 QRS: -6 QRSD: 93 T: -78 [...] at time of d/c. Pharmacy updated in [place]. SW following Final Note Post Acute Form Completed Yes * Cely Gottlieb RD,LD - 05/10/2025 10:[address] [facility] Nutrition Malnutrition Reassessment Evidence Supported Diagnosis: No malnutrition identified Nutrition Prescription: Kcals: 7498-8612 kcal (25-30 kcal/kg) Protein (g): 65-82 gm [...] Stool Occurrence: 1 Stool Appearance: Type 4 [place] Stool Chart Stool Color: Michael Stool Amount: [...] therapy recommended. Time In / Time Out [id number] IP PT Treatment Minutes 24 The total [...] on AC d/t hx of SAH - SHOWROOM EXECUTIVE DIRECTOR coreg - cardiac monitoring -Heart rate 75 * Kaz Robertson MD - 05/09/2025 10:25 AM EDTAssociated Problem(s): Hypertension associated with diabetes (HCC) Well controlled. - SHOWROOM EXECUTIVE DIRECTOR coreg - monitor and adjust as needed [...] insulin (HCC) Last A1c 4.8 in 03/2024. SHOWROOM EXECUTIVE DIRECTOR meds include none. - hold off on FSBS, correctional algorithm - rpt A1c 5.3 * Kaz Robertson MD - 05/09/2025 7:00 AM EDTAssociated Problem(s): Acute on chronic heart failure with preserved ejection fraction (HCC) Echo 2023 normal EF. Euvolemic on exam - monitor I/O, daily weights - diuresis: SHOWROOM EXECUTIVE DIRECTOR lasix on hold - SHOWROOM EXECUTIVE DIRECTOR coreg * Kaz Robertson MD - 05/09/2025 7:00 AM EDTAssociated Problem(s): Stage 3a chronic kidney disease (HCC) Cre 1.05 at admit. Baseline approx 0.9-1.2. - caution with contrast - note plans for angiogram - monitor renal function closely - avoid hypotension, nephrotoxins as able * Kaz Robertson MD - 05/09/2025 7:00 AM EDTAssociated Problem(s): 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 History of [...] on AC d/t hx of SAH - SHOWROOM EXECUTIVE DIRECTOR coreg - cardiac monitoring -Heart rate 75 Type 2 diabetes mellitus, without long-term current use of insulin (HCC) Last A1c 4.8 in 03/2024. SHOWROOM EXECUTIVE DIRECTOR meds include none. - hold off on FSBS, correctional algorithm - rpt A1c 5.3 Hypertension associated with diabetes (HCC) Well controlled. - SHOWROOM EXECUTIVE DIRECTOR coreg - monitor and adjust as needed -Blood pressure 128/66 Chronic heart failure with preserved ejection fraction (HCC) Echo 2023 normal EF. Euvolemic on exam - monitor I/O, daily weights - diuresis: SHOWROOM EXECUTIVE DIRECTOR lasix on hold - SHOWROOM EXECUTIVE DIRECTOR coreg Stage 3a chronic kidney disease (HCC) Cre 1.05 at admit. Baseline approx 0.9-1.2. 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 Time In / Time Out [id number]/[id number] (31 minutes) IP OT Evaluation Minutes 8 [...] on AC d/t hx of SAH - SHOWROOM EXECUTIVE DIRECTOR coreg - cardiac monitoring -Heart rate 80 * Kaz Robertson MD - 05/08/2025 1:05 PM EDTAssociated Problem(s): Hypertension associated with diabetes (HCC) Well controlled. - SHOWROOM EXECUTIVE DIRECTOR coreg - monitor and adjust as needed [...] therapy recommended. Time In / Time Out 2510-2122 PT Treatment Minutes 25 The total time [...] insulin (HCC) Last A1c 4.8 in 03/2024. SHOWROOM EXECUTIVE DIRECTOR meds include none. - hold off on FSBS, correctional algorithm - rpt A1c 5.3 * Kaz Robertson MD - 05/08/2025 6:56 AM EDTAssociated Problem(s): Acute on chronic heart failure with preserved ejection fraction (HCC) Echo 2023 normal EF. Euvolemic on exam - monitor I/O, daily weights - diuresis: SHOWROOM EXECUTIVE DIRECTOR lasix on hold - SHOWROOM EXECUTIVE DIRECTOR coreg * Kaz Robertson MD - 05/08/2025 6:56 AM EDTAssociated Problem(s): Stage 3a chronic kidney disease (HCC) Cre 1.05 at admit. Baseline approx 0.9-1.2. - caution with contrast - note plans for angiogram - monitor renal function closely - avoid hypotension, nephrotoxins as able * Kaz Robertson MD - 05/08/2025 6:56 AM EDTAssociated Problem(s): 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 History of [...] on AC d/t hx of SAH - SHOWROOM EXECUTIVE DIRECTOR coreg - cardiac monitoring -Heart rate 80 Type 2 diabetes mellitus, without long-term current use of insulin ([facility]) Last A1c 4.8 in 03/2024. SHOWROOM EXECUTIVE DIRECTOR meds include none. - hold off on FSBS, correctional algorithm - rpt A1c 5.3 Hypertension associated with diabetes ([facility]) Well controlled. - SHOWROOM EXECUTIVE DIRECTOR coreg - monitor and adjust as needed -Blood pressure 124/66 Chronic heart failure with preserved ejection fraction (HCC) Echo 2023 normal EF. Euvolemic on exam - monitor I/O, daily weights - diuresis: SHOWROOM EXECUTIVE DIRECTOR lasix on hold - SHOWROOM EXECUTIVE DIRECTOR coreg Stage 3a chronic kidney disease (HCC) Cre 1.05 at admit. Baseline approx 0.9-1.2. 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1940 Requested By: DONNIE PLUMMER Order Number: [id number] Reading MD: Isidro Kennedy Measurements Intervals [place] Rate: 134 P: 203 FL: 145 QRS: -6 QRSD: 93 T: -78 QT: 333 QTc: 499 Interpretive Statements SINUS TACHYCARDIA NONSPECIFIC ST & T-WAVE ABNORMALITY Electronically Signed On 04-30-2025 22:14:02 EDT by Isidro Robertson MD * Spencer Dye - 05/07/2025 4:06 PM EDT 05/07/25 1500 Reason for Visit Date of visit 05/07/25 Visited With Patient and family/visitors Visited By Director Database Reason for Visit Follow-up Patient Assessment Patient Appears Fearful;Anxious Patient Buddhism at Registration Cheondoism Spiritual and Emotional Concerns Fear Patient Spiritual Wellbeing Moderate Acuity - Spiritual Distress Interventions with Patient Cheondoism Interventions Prayer with patient or family Exploration Interventions Discussed illness/injury and its impact;Identified and reinforced appropriate coping strategies and strengths;Explored image of God in relationship to situation Outcomes Expressed Outcomes Expressed feeling supported Care Plan Plan for Follow-Up Director Database(s) will continue to follow throughout admission * [...] on AC d/t hx of SAH - SHOWROOM EXECUTIVE DIRECTOR coreg - cardiac monitoring -Heart rate 81 * Cely Gottlieb RD,LD - 05/07/2025 10:[address] [facility] Nutrition Malnutrition Reassessment Evidence Supported Diagnosis: No malnutrition identified Nutrition Prescription: Kcals: 6175-2363 kcal (25-30 kcal/kg) Protein (g): 65-82 gm [...] insulin (HCC) Last A1c 4.8 in 03/2024. SHOWROOM EXECUTIVE DIRECTOR meds include none. - hold off on FSBS, correctional algorithm - rpt A1c 5.3 * Kaz Robertson MD - 05/07/2025 7:10 AM EDTAssociated Problem(s): Hypertension associated with diabetes (HCC) Well controlled. - SHOWROOM EXECUTIVE DIRECTOR coreg - monitor and adjust as needed * Kaz Robertson MD - 05/07/2025 7:10 AM EDTAssociated Problem(s): Acute on chronic heart failure with preserved ejection fraction (HCC) Echo 2023 normal EF. Euvolemic on exam - monitor I/O, daily weights - diuresis: SHOWROOM EXECUTIVE DIRECTOR lasix on hold - SHOWROOM EXECUTIVE DIRECTOR coreg * Kaz Robertson MD - 05/07/2025 7:10 AM EDTAssociated Problem(s): Stage 3a chronic kidney disease (HCC) Cre 1.05 at admit. Baseline approx 0.9-1.2. - caution with contrast - note plans for angiogram - monitor renal function closely - avoid hypotension, nephrotoxins as able * Kaz Robertson MD - 05/07/2025 7:10 AM EDTAssociated Problem(s): 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 History of [...] on AC d/t hx of SAH - SHOWROOM EXECUTIVE DIRECTOR coreg - cardiac monitoring -Heart rate 81 Type 2 diabetes mellitus, without long-term current use of insulin (HCC) Last A1c 4.8 in 03/2024. SHOWROOM EXECUTIVE DIRECTOR meds include none. - hold off on FSBS, correctional algorithm - rpt A1c 5.3 Hypertension associated with diabetes (HCC) Well controlled. - SHOWROOM EXECUTIVE DIRECTOR coreg - monitor and adjust as needed Chronic heart failure with preserved ejection fraction (HCC) Echo 2023 normal EF. Euvolemic on exam - monitor I/O, daily weights - diuresis: SHOWROOM EXECUTIVE DIRECTOR lasix on hold - SHOWROOM EXECUTIVE DIRECTOR coreg Stage 3a chronic kidney disease (HCC) Cre 1.05 at admit. Baseline approx 0.9-1.2. - caution with contrast - note plans for angiogram - monitor renal function closely - avoid hypotension, nephrotoxins as able 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 History of [...] Pat Name: SKYLER BAUTISTA Department: DEPID Room: [facility] Gender: Female 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1940 Requested By: DONNIE PLUMMER Order Number: [id number] Ivone MD: Isidro Kennedy Measurements Intervals [place] Rate: 134 P: 203 FL: 145 QRS: -6 QRSD: 93 T: -78 QT: 333 QTc: 499 Interpretive Statements SINUS TACHYCARDIA NONSPECIFIC ST & T-WAVE ABNORMALITY Electronically Signed On 04-30-2025 22:14:02 EDT by Isidro Robertson MD * Radha Looney, PT - 05/06/2025 11:47 AM EDT 05/06/25 1054 PT Subjective Note Type Evaluation;Chart Review Patient Room/Unit 3326 PT Subjective Comments #1 pt agreeable, has to use the [facility] Discharge Information Evaluation to serve as discharge [...] abscess. 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 Time In / Time Out [id number] IP PT Evaluation Minutes 10 IP PT Treatment Minutes 43 The total time spent caring for this patient included but was not limited to medical record review;hands-on treatment;communication and education with patient and/or family/caregiver;clinical judgement necessary for treatment planning for next session;communication with nursing and/or care coordinat ion/social work regarding patient status and discharge planning * Rosario Izaguirre SCHEDULE CLERK - 05/06/2025 10:01 AM EDT 05/06/25 1000 Ongoing Discharge Planning Evaluation Completed by CC/NORA Yes Repisodic List provided Yes, Provided information, demonstrated how to access quality and resource utilization data for post acute provider and offered assistance and [facility] Financial Disclosure completed Actual Discharge Plan 05/06/2025 [...] from pts sister. Confirmed pt wa at [facility] and should go back there. Plans [...] on AC d/t hx of SAH - SHOWROOM EXECUTIVE DIRECTOR coreg - cardiac monitoring * Geo Guallpa MD - 05/06/2025 9:31 AM EDTAssociated Problem(s): Type 2 diabetes mellitus, without long-term current use of insulin ([facility]) Last A1c 4.8 in 03/2024. SHOWROOM EXECUTIVE DIRECTOR meds include none. - hold off on FSBS, correctional algorithm - rpt A1c 5.3 * Geo Guallpa MD - 05/06/2025 9:31 AM EDTAssociated Problem(s): Hypertension associated with diabetes ([facility]) Well controlled. - SHOWROOM EXECUTIVE DIRECTOR coreg - monitor and adjust as needed * Geo Guallpa MD - 05/06/2025 9:31 AM EDTAssociated Problem(s): Acute on chronic heart failure with preserved ejection fraction (HCC) Echo 2023 normal EF. Euvolemic on exam - monitor I/O, daily weights - diuresis: SHOWROOM EXECUTIVE DIRECTOR lasix on hold - SHOWROOM EXECUTIVE DIRECTOR coreg * Geo Guallpa MD - 05/06/2025 9:31 AM EDTAssociated Problem(s): Stage 3a chronic kidney disease (HCC) Cre 1.05 at admit. Baseline approx 0.9-1.2. 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 SHOWROOM EXECUTIVE DIRECTOR meds include none. - hold off on FSBS, correctional algorithm - rpt A1c 5.3 Hypertension associated with diabetes (HCC) Well controlled. - SHOWROOM EXECUTIVE DIRECTOR coreg - monitor and adjust as needed Chronic heart failure with preserved ejection fraction (HCC) Echo 2023 normal EF. Euvolemic on exam - monitor I/O, daily weights - diuresis: SHOWROOM EXECUTIVE DIRECTOR lasix on hold - SHOWROOM EXECUTIVE DIRECTOR coreg Stage 3a chronic kidney disease (HCC) Cre 1.05 at admit. Baseline approx 0.9-1.2. 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 SHOWROOM EXECUTIVE DIRECTOR meds include none. - hold off on FSBS, correctional algorithm - note metformin started - will stop given plans for angiogram this week - rpt A1c ordered * Geo Guallpa MD - 05/05/2025 1:00 PM EDTAssociated Problem(s): Hypertension associated with diabetes (HCC) Well controlled. - SHOWROOM EXECUTIVE DIRECTOR coreg - monitor and adjust as needed * Geo Guallpa MD - 05/05/2025 1:00 PM EDTAssociated Problem(s): Acute on chronic heart failure with preserved ejection fraction (HCC) Echo 2023 normal EF. Euvolemic on exam - monitor I/O, daily weights - diuresis: SHOWROOM EXECUTIVE DIRECTOR lasix on hold - SHOWROOM EXECUTIVE DIRECTOR coreg * Geo Guallpa MD - 05/05/2025 1:00 PM EDTAssociated Problem(s): Stage 3a chronic kidney disease (HCC) Cre 1.05 at admit. Baseline approx 0.9-1.2. 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 SHOWROOM EXECUTIVE DIRECTOR meds include none. - hold off on FSBS, correctional algorithm - note metformin started - will stop given plans for angiogram this week - rpt A1c ordered Hypertension associated with diabetes ([facility]) Well controlled. - SHOWROOM EXECUTIVE DIRECTOR coreg - monitor and adjust as needed Chronic heart failure with preserved ejection fraction ([facility]) Echo 2023 normal EF. Euvolemic on exam - monitor I/O, daily weights - diuresis: SHOWROOM EXECUTIVE DIRECTOR lasix on hold - SHOWROOM EXECUTIVE DIRECTOR coreg Stage 3a chronic kidney disease (HCC) Cre 1.05 at admit. Baseline approx 0.9-1.2. 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 Bautista is up in the chair. Reports she's getting some tingling in her foot, which she's hopeful means she'll have a good outcome. She states she can't see herself getting an amputation. Discussed with her and her son, [id number], at bedside. When asked what might happen [...] on AC d/t hx of SAH - SHOWROOM EXECUTIVE DIRECTOR coreg - cardiac monitoring * Geo Guallpa MD - 05/05/2025 12:57 PM EDTAssociated Problem(s): Type 2 diabetes mellitus, without long-term current use of insulin (HCC) Last A1c 4.8 in 03/2024. SHOWROOM EXECUTIVE DIRECTOR meds include none. - hold off on FSBS, correctional algorithm - note metformin started - will stop given plans for angiogram this week - rpt A1c * Geo Guallpa MD - 05/05/2025 12:57 PM EDTAssociated Problem(s): Acute on chronic heart failure with preserved ejection fraction (HCC) Echo 2023 normal EF. Euvolemic on exam - monitor I/O, daily weights - diuresis: SHOWROOM EXECUTIVE DIRECTOR lasix on hold - SHOWROOM EXECUTIVE DIRECTOR coreg * Geo Guallpa MD - 05/05/2025 12:57 PM EDTAssociated Problem(s): Hypertension associated with diabetes (HCC) Well controlled. - SHOWROOM EXECUTIVE DIRECTOR coreg - monitor and adjust as needed * Geo Guallpa MD - 05/05/2025 12:57 PM EDTAssociated Problem(s): Stage 3a chronic kidney disease (HCC) Cre 1.05 at admit. Baseline approx 0.9-1.2. - caution with contrast - note plans for angiogram - monitor renal function closely - avoid hypotension, nephrotoxins as able * Geo Guallpa MD - 05/05/2025 12:57 PM EDTAssociated Problem(s): 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 History of [...] on AC d/t hx of SAH - SHOWROOM EXECUTIVE DIRECTOR coreg - cardiac monitoring Type 2 diabetes mellitus, without long-term current use of insulin ([facility]) Last A1c 4.8 in 03/2024. SHOWROOM EXECUTIVE DIRECTOR meds include none. - hold off on FSBS, correctional algorithm - note metformin started - will stop given plans for angiogram this week - rpt A1c Hypertension associated with diabetes (HCC) Well controlled. - SHOWROOM EXECUTIVE DIRECTOR coreg - monitor and adjust as needed Chronic heart failure with preserved ejection fraction (HCC) Echo 2023 normal EF. Euvolemic on exam - monitor I/O, daily weights - diuresis: SHOWROOM EXECUTIVE DIRECTOR lasix on hold - SHOWROOM EXECUTIVE DIRECTOR coreg Stage 3a chronic kidney disease (HCC) Cre 1.05 at admit. Baseline approx 0.9-1.2. 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.] Marcell Aguirre MD 05/03/2025 6:28 PM * Tenisha Wong, PT - 05/03/2025 8:51 AM EDT [...] long-term current use of insulin (HCC) Cont block captain metformin Refusing SSI * Marcell Aguirre MD [...] 5:52 PM EDTAssociated Problem(s): 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 History of [...] long-term current use of insulin (HCC) Cont block captain metformin Refusing SSI Chronic heart failure with preserved ejection fraction (HCC) Echo 2023 normal EF Compensated 05/02/2025 Primary hypertension Controlled Stage 3a chronic kidney disease (HCC) Baseline CR 0.9-1.2, stable 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 I can feel his presence . Pt less anxious after prayer support.) Empowerment Interventions Encouraged focus on present Outcomes Expressed Outcomes Met spiritual needs;Appreciative of prayer/ritual;Able to discuss emotions;Able to explore grief;Distress reduced;Decreased anxiety Care Plan Plan for Follow-Up Director Database(s) will continue to follow throughout admission * Mel Hurd MSW - 05/02/2025 9:59 AM EDT 05/02/25 0900 Assessment Complete Actual Discharge Plan 05/02/25 SW update: Pt was admitted from [facility]. Referral was sent to [facility] in [facility] per pt's request; NORA spoke with Grisel at [facility] regarding referral. 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 History of CABG no chest pain * Marcell Aguirre MD - 05/01/2025 5:56 PM EDTAssociated Problem(s): Type 2 diabetes mellitus, without long-term current use of insulin (HCC) Cont block captain metformin Refusing SSI * Marcell Aguirre MD [...] long-term current use of insulin (HCC) Cont block captain metformin Refusing SSI Chronic heart failure with preserved ejection fraction (HCC) Echo 2023 normal EF Compensated Primary hypertension Controlled PAD (peripheral artery disease) History of angiogram 01/2025 Stage 3a chronic kidney disease (HCC) Baseline CR 0.9-1.2, stable 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 Nutrition Malnutrition Assessment Evidence Supported Diagnosis: No malnutrition identified Nutrition Prescription: Kcals: [id number] kcal (25-30 kcal/kg) Protein (g): 65-82 gm [...] Stool Occurrence: 1 Stool Appearance: Type 5 Sidney Stool Chart Stool Color: Michael Stool Amount: [...] not needed concern identified and addressed by Over Short And Damage Clerk Anticipated post-acute care needs Acute Rehabilitation [...] PCP through [facility] Fitzgerald? and now using [facility] [address] Pt reports no [...] and signs of toxicity. 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 Underwood the contents of one device (0.1mL) into one nostril upon signs of opioid overdose. Call 911. May repeat dose in other nostril if no response within 2-3 minutes. 02/04/25 Flaco Caban MD nalOXone (NARCAN) 4 mg/actuation Nasl Underwood, Non-Aerosol 0.1 mL by Nasal route as needed for OpioidReversal. 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 OPERATIVE/PROCEDURE NOTE Skyler Bautista May 24, 2025 Body mass index is 21.95 kg/m??. PRE-OP DIAGNOSIS: PAD (peripheral artery disease) [I73.9] Critical limb ischemia of left lower extremity (HCC) [I70.222] POST-OP DIAGNOSIS: PAD (peripheral artery disease) [I73.9]Critical limb ischemia of left lower extremity (HCC) [I70.222] PROCEDURE(S): Left Above Knee Amputation SURGEON(S): Surgeons and Role: * Lawrence Wolf MD - Primary CASE MANAGEMENT DIRECTOR(S): see op log ANESTHESIA: General w/Block SPECIMENS: [...] REPORT PATIENT NAME: Skyler Bautista MR #: [id number] : 1940 DATE OF PROCEDURE: 05/10/2025 PREOPERATIVE DIAGNOSES: LLE critical limb ischemia, History of L TMA, PAD POSTOPERATIVE DIAGNOSES: Same PROCEDURE PERFORMED: 1. US guided access of the right common femoral artery 2. Abdominal aortogram. Selection of L SFA via R BARREL RIBS SOLDERER (3rd order) with left lower extremity angiogram. Selection of SHOWROOM EXECUTIVE DIRECTOR with additional angiogram. Radiographic supervision and interpretation [...] TPT and peroneal artery, reconstitution of proximal SHOWROOM EXECUTIVE DIRECTOR with mid and distal SHOWROOM EXECUTIVE DIRECTOR with multifocal severe stenosis of proximal andmid SHOWROOM EXECUTIVE DIRECTOR but occluded distally without reconstitution. Significant small [...] with severe stenosis, patent proximal and mid SHOWROOM EXECUTIVE DIRECTOR with multifocal severe stenosis, patent peroneal artery Significant small vessel disease in L foot INDICATIONS: Skyler Bautista is a 84 y.o. female with PMHx significant for PAD s/p pelvic angiogram with bilateral NILAY stents s/p LLE angiogram with SHOWROOM EXECUTIVE DIRECTOR of popliteal artery, TPT and peroneal artery [...] a hemostat. Under ultrasound guidance, the R BARREL RIBS SOLDERER was accessed using a micropuncture needle. X-ray [...] an 11 cm 5 Fr sheath. Next, HIGH MOBILITYson wire and Omniflush catheter were advanced to [...] and catheter were used to select the SHOWROOM EXECUTIVE DIRECTOR to better evaluate if it reconstituted distally. After the SHOWROOM EXECUTIVE DIRECTOR was selected, an angiogram was obtained, which [...] procedure. SUMMARY: Significant small vessel disease. Occluded SHOWROOM EXECUTIVE DIRECTOR and DAREN distally without reconstitution. RECOMMENDATIONS: Bed rest for 3 hours. Recommend proximal LLE amputation Voice recognition technology was used to complete this note, and it may contain unintended errors despite the check writer salesperson's best efforts to proofread it. Please contact me with questions. Signed: Lawrence Wolf MD * Lawrence Wolf MD - 05/10/2025 2:[address] [facility] ENDOVASCULAR PROCEDURE NOTE Skyler Bautista 05/10/25 PRE-OP DIAGNOSIS: L TMA dehiscence and necrosis, PAD POST-OP DIAGNOSIS: Same PROCEDURE(S): Ultrasound guided R BARREL RIBS SOLDERER access Abdominal aortogram. Selection of L SFA via R BARREL RIBS SOLDERER (3rd order) with LLE angiogram. Selection of SHOWROOM EXECUTIVE DIRECTOR with additional angiogram RLE angiogram RADIATION: 309 mGy FLUORO: 27.6 min SEDATION: General anesthesia CONTRAST: 68 mL SURGEON: Lawrence Wolf MD ANESTHESIA: Local, conscious sedation ESTIMATED BLOOD LOSS (mls): 5 mL LLE FINDINGS: BARREL RIBS SOLDERER stenosis Patent popliteal and TPT with severe stenosis Patent proximal SHOWROOM EXECUTIVE DIRECTOR but occluded distally without reconstitution Patent DAREN with multifocal severe stenosis, occlusion at the level of the ankle and no distal reconstitution Significant small vessel disease in L foot DISPOSITION/POST PROC COURSE: PACU and flat for 3 hours documented in this encounter Consult Notes * Luis Manuel Mays MD - 05/26/2025 3:51 PM EDT [facility] [place] Critical Care Consult Note MDM Assessment: Skyler [...] pending. Bcx obtained and pending. Zosyn restarted SHOWROOM EXECUTIVE DIRECTOR, will add Vanc for MRSA coverage. If [...] Luis Manuel Mays M.D. Critical Care Medicine [facility] Critical care time: 39 minutes This was [...] IR REVAS FEM POP ART UNILAT W SHOWROOM EXECUTIVE DIRECTOR 01/30/2025 IR REVAS FEM POP ART UNILAT W SHOWROOM EXECUTIVE DIRECTOR 01/30/2025 Lawrence Wolf MD [facility] IR IR [...] true Transportation Needs: No Transportation Needs (05/01/2025) [facility] IP Transportation In the past 12 months, has lack of reliable transportation kept you from medical appointments, meetings, work or from getting things needed for daily living?: No Physical Activity: Inactive (05/01/2025) Exercise Vital Sign Days of Exercise per Week: 0 days Minutes of Exercise per Session: 0 min Stress: No Stress Concern Present (05/01/2025) [employer] - Occupational Stress Questionnaire Feeling of Stress : Not at all Received from [facility] ([place], [place], [place], [place]) Family and Community Support Intimate Partner Violence: Not At Risk (08/06/2024) Received from [facility] Humiliation, Afraid, Rape, and Kick questionnaire Fear of Current or Ex-Partner: No Emotionally Abused: No Physically Abused: No Sexually Abused: No Housing Stability: Low Risk (08/06/2024) Received from [facility] Housing Stability Vital Sign Unable to Pay [...] BAUTISTA Department: DEPID Room: 3318 Gender: Female Conventional Machinist: Sekou : 1940 Requested By: STEPHEN Earl Order Number: [id number] Reading MD: Measurements Intervals [place] Rate: 78 P: 0 FL: 0 QRS: 16 QRSD: 88 T: 27 [...] CARE Palliative Care Consult Note Consult Location: [facility] Length of Stay: 12 - chart review [...] helpful to explore this further with floor Director Database. Support provided along with [facility] role. Patient [...] presents per ems from [facility], toes amputated on left foot, here for [...] History: Past Medical History: Diagnosis Date A-fib ([facility]) Arthritis Blood circulation, collateral CAD (coronary artery disease) Cardiac dysrhythmia Carotid artery occlusion CHF (congestive heart failure) ([facility]) Diabetes mellitus (HCC) not currently on meds,rehab discontued Difficult intravenous access possible use of iv therapy/ultrasound to help with venous access. RIVERA (dyspnea on exertion) Encounter for blood transfusion Fatty liver Glaucoma Heartburn Hyperlipidemia Hypertension Liver disease Mixed hyperlipidemia Peripheral vascular disease Renal disorder Renal insufficiency Shortness of breath Sleep apnea pt has cpap, but is not using. Stroke ([facility]) pt's states around 3 years ago. 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 Type 2 diabetes mellitus, without long-term current use of insulin (HCC) Hypertension associated with diabetes ([facility]) Social History: Social History Socioeconomic [...] true Transportation Needs: No Transportation Needs (05/01/2025) [facility] Transportation In the past 12 months, has lack of reliable transportation kept you from medical appointments, meetings, work or from getting things needed for daily living?: No Physical Activity: Inactive (05/01/2025) Exercise Vital Sign Days of Exercise per Week: 0 days Minutes of Exercise per Session: 0 min Stress: No Stress Concern Present (05/01/2025) [employer] [facility] - Occupational Stress Questionnaire Feeling of Stress : Not at all Social Connections: Low Risk (10/30/2023) Received from [facility] ([place], [place], [place], [place]) Family and Community Support Help with Day to Day Activities: Not on file Feeling Lonely or Isolated: Not on file Intimate Partner Violence: Not At Risk (08/06/2024) Received from [facility] Humiliation, Afraid, Rape, and Kick questionnaire Fear of Current or Ex-Partner: No Emotionally Abused: No Physically Abused: No Sexually Abused: No Housing Stability: Low Risk (08/06/2024) Received from [facility] Housing Stability Vital Sign Unable to Pay [...] were not included. Name: Skyler Bautista ADDRESS: [address] [place] [id number] : 1940 AGE: 84 y.o. Hospital: [facility] Requesting Attending: Dr. Aguirre Primary Care Physician: [...] with ulcer status post LLE angiogram with SHOWROOM EXECUTIVE DIRECTOR of peroneal, tibioperoneal trunk and popliteal arteries [...] History: 01/30/2025 - Left LE angiogram with SHOWROOM EXECUTIVE DIRECTOR of peroneal and tibioperoneal trunk with 1.5 x 80 mm and 2 x200 balloons. SHOWROOM EXECUTIVE DIRECTOR of the popliteal artery with 3.5 x [...] Not Taking nalOXone (NARCAN) 4 mg/actuation Nasl Underwood, Non-Aerosol 0.1 mL by Nasal route as needed for OpioidReversal. Underwood the contents of one device (0.1mL) into one nostril upon signs of opioid overdose. Call 911. May repeat dose in other nostril if no response within 2-3 minutes. 1 Each 0 nalOXone (NARCAN) 4 mg/actuation Nasl Underwood, Non-Aerosol 0.1 mL by Nasal route as needed for OpioidReversal. Underwood the contents of one device (0.1mL) into one nostril upon signs of opioid overdose. Call 911. May repeat dose in other nostril if no response within 2-3 minutes. 1 Each 0 Unknown Current Facility-Administered Medications Medication Dose Route Frequency Provider Last Rate Last Admin acetaminophen (TYLENOL) tablet 650 mg 650 mg Oral Q4H PRN Rajendra Petty MD (Ronny) 650 mg at 07/16/25 0151 atorvastatin (LIPITOR) tablet 40 mg 40 mg Oral Nightly Alyson Guillermo, ROLLER SKATER 40 mg at 05/02/252153 carvediloL (COREG) tablet 12.5 mg 12.5 mg Oral BID Alyson Guillermo, ROLLER SKATER 12.5 mg at 05/02/252153 dextrose 50 % solution 25 mL 25 mL Intravenous PRN Rajendra Petty MD (Ronny) dorzolamide-timoloL (COSOPT) 22.3-6.8 mg/mL ophthalmic solution 1 Drop 1 Drop Ophthalmic BID Alyson Guillermo, ROLLER SKATER 1 Drop at 05/01/252235 gabapentin (NEURONTIN) capsule 300 mg 300 mg Oral Nightly Alyson Guillermo ROLLER SKATER 300 mg at 05/02/252153 glucagon (GLUCAGEN) injection [...] Drop 1 Drop Ophthalmic Nightly Alyson Guillermo, ROLLER SKATER 1 Drop at 05/01/252238 LORazepam (ATIVAN) tablet [...] IR REVAS FEM POP ART UNILAT W SHOWROOM EXECUTIVE DIRECTOR 01/30/2025 IR REVAS FEM POP ART UNILAT W SHOWROOM EXECUTIVE DIRECTOR 01/30/2025 Lawrence Wolf MD EDG IR IR [...] (L) 05/03/2025 GLU 109 (H) 05/03/2025 Radiology: CA US LOWER EXTREMITY ARTERIAL DUPLEX COMPLETE Result Date: 05/03/2025 Conclusions * Triphasic Doppler flow pattern is noted in the right and left common femoral artery.* 20-49% stenosis right common femoral artery. * 20-49% stenosis proximal profunda artery. * 50-99%stenosis right proximal and mid SFA. * 50-99% [...] elevated and unreliable secondary to calcified arterialwalls. MEDICAL DECISION MAKING Assessment: PAD with failing [...] was seen in coordination with the physician real estate administrative assistant/nurse practitioner. Patient with LLE angiogram with SHOWROOM EXECUTIVE DIRECTOR of popliteal, TPT and peroneal artery 01/29 [...] insufficiency, sleep apnea and CVA presents to the[facility] with wound dehiscence and concern for wound [...] completed using voice recognition technology. Despite the check writer salesperson's best efforts to proof read, it may [...] IR REVAS FEM POP ART UNILAT W SHOWROOM EXECUTIVE DIRECTOR 01/30/2025 IR REVAS FEM POP ART UNILAT W SHOWROOM EXECUTIVE DIRECTOR 01/30/2025 Lawrence Wolf MD EDG IR IR [...] true Transportation Needs: No Transportation Needs (05/01/2025) [facility] Transportation In the past 12 months, has lack of reliable transportation kept you from medical appointments, meetings, work or from getting things needed for daily living?: No Physical Activity: Inactive (05/01/2025) Exercise Vital Sign Days of Exercise per Week: 0 days Minutes of Exercise per Session: 0 min Stress: No Stress Concern Present (05/01/2025) [employer] [facility] - Occupational Stress Questionnaire Feeling of Stress : Not at all Received from [facility] ([place], [place], [place], [place]) Family and Community Support Intimate Partner Violence: Not At Risk (08/06/2024) Received from [facility] Humiliation, Afraid, Rape, and Kick questionnaire Fear of Current or Ex-Partner: No Emotionally Abused: No Physically Abused: No Sexually Abused: No Housing Stability: Low Risk (08/06/2024) Received from [facility] Housing Stability Vital Sign Unable to Pay [...] permission allowing today's photographs - using the Redux mathew. Lab and radiographic data reviewed. Thank [...] presents per ems from [facility], toes amputated on left foot, here for wound check. History obtained via patient. History limitations HPI: Skyler Bautista is a 84 y.o. female with a past medical history significant for the below pertinent for atrial fibrillation, CHF, CAD, prior cardiac arrest who comes from rehab facility at [facility] due to wound dehiscence and concern for [...] Ventricular rate persistently at 134. 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 IMPRESSION: 1. Wound dehiscence 2. Typical atrial flutter (HCC) DISPOSITION: Admit Condition at Discharge/Transfer from Department: Stable Donnie Kaur MD Emergency Medicine 04/30/25 Donnie Kaur MD 04/30/25 [id number] documented in this encounter Miscellaneous Notes * [...] Plan 06/06/25: CC Update, no bed at [facility] this date, post acute form completed, s/p [...] met with pt, sister in room, s/p [facility] following, per pt and sister, [facility] is 1st choice if appropriate, anticipate need forambulance transport at d/c, CC following. * Query Response Document - Stephen Pickard MD - 05/28/2025 2:[address] 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 CC FOLLOWING FOR DC NEEDS * Utilization Review Notes - Adry Pro RN - 05/24/2025 4:11 PM EDT CONTINUED STAY REVIEW INPT STATUS SINCE 05/01 Diabetic foot infection ([facility]) S/P transmetatarsal amputation of foot, left ([facility]) - Wound dehiscence over previous [...] for amputation as above Paroxysmal atrial fibrillation ([facility]) - 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 - rate controlled on coreg Type 2 diabetes mellitus, without long-term current use of insulin ([facility]) - A1c 5.3 - diet controlled - not following FSBS Hypertension associated with diabetes ([facility]) - at goal on current rx Chronic heart failure with preserved ejection fraction ([facility]) - Echo 2023 normal EF. - Euvolemic on exam Stage 3a chronic kidney disease ([facility]) - Baseline approx 0.9-1.2. 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 - History of CABG - continue lipitor, coreg, ranexa - no chest pain Anemia in other chronic diseases classified elsewhere Pancytopenia ([facility]) - low but stable - [...] arterial studies 05/02 with significant PAD - BARREL RIBS SOLDERER stenosis Patent popliteal and TPT with severe stenosis Patent proximal SHOWROOM EXECUTIVE DIRECTOR but occluded distally without reconstitution Patent DAREN with multifocal severe stenosis, occlusion at the level of the ankle and no distal reconstitution Significant small vessel disease in L foot Paroxysmal atrial fibrillation (HCC) Heart rate controlled. 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 - SHOWROOM EXECUTIVE DIRECTOR coreg - cardiac monitoring -Rate controlled 05/20/25 Type 2 diabetes mellitus, without long-term current use of insulin ([facility]) Last A1c 4.8 in 03/2024. SHOWROOM EXECUTIVE DIRECTOR meds include none. - hold off on FSBS, correctional algorithm - rpt A1c 5.3 - stable 05/20/25 Hypertension associated with diabetes ([facility]) Well controlled. - SHOWROOM EXECUTIVE DIRECTOR coreg - monitor and adjust as needed -BP stable 05/20/25 Chronic heart failure with preserved ejection fraction ([facility]) Echo 2023 normal EF. Euvolemic on exam - monitor I/O, daily weights - diuresis: SHOWROOM EXECUTIVE DIRECTOR lasix on hold - SHOWROOM EXECUTIVE DIRECTOR coreg -Stable 05/20/25 Stage 3a chronic kidney disease (HCC) Cre 1.05 at admit. Baseline approx 0.9-1.2. -Cr 0.91 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 History of [...] PM EDT [facility]. Cont stay review for diabetic foot infection s/p transmetatarsal amputation of foot, left, PAD. Vascular surgery following. sales support coordinator to follow for dc planning. * [...] note were not included. IP ORDER IN [facility] 05/01 CONT STAY REVIEW ON TCU LOS [...] I discussed the angiogram findings- the left BARREL RIBS SOLDERER stenosis could be treated with an endarterectomy, the popliteal artery and TPT stenosis could be treated with repeat angioplasty, and the DAREN could be treated via retrograde access. However, the SHOWROOM EXECUTIVE DIRECTOR and DAREN are distally occluded without reconstitution, [...] surgery. While the patient does have L BARREL RIBS SOLDERER disease, her L femoral pulse is still [...] Pro RN - 05/10/2025 12:24 PM EDT SOLDERER DIPPER INPT STATUS SINCE 05/01 Diabetic foot infection [...] on AC d/t hx of SAH - SHOWROOM EXECUTIVE DIRECTOR coreg - cardiac monitoring -Heart rate 75 Type 2 diabetes mellitus, without long-term current use of insulin (HCC) Last A1c 4.8 in 03/2024. SHOWROOM EXECUTIVE DIRECTOR meds include none. - hold off on FSBS, correctional algorithm - rpt A1c 5.3 Hypertension associated with diabetes (HCC) Well controlled. - SHOWROOM EXECUTIVE DIRECTOR coreg - monitor and adjust as needed -Blood pressure 128/66 Chronic heart failure with preserved ejection fraction (HCC) Echo 2023 normal EF. Euvolemic on exam - monitor I/O, daily weights - diuresis: SHOWROOM EXECUTIVE DIRECTOR lasix on hold - SHOWROOM EXECUTIVE DIRECTOR coreg Stage 3a chronic kidney disease (HCC) Cre 1.05 at admit. Baseline approx 0.9-1.2. - caution with contrast - note plans for angiogram - monitor renal function closely - avoid hypotension, nephrotoxins as able 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 History of [...] (HCC) S/P transmetatarsal amputation of foot, left ([facility]) Wound dehiscence over previous left [...] week - continue lipitor Paroxysmal atrial fibrillation ([facility]) Heart rate controlled. 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 - SHOWROOM EXECUTIVE DIRECTOR coreg - cardiac monitoring Type 2 diabetes mellitus, without long-term current use of insulin ([facility]) Last A1c 4.8 in 03/2024. SHOWROOM EXECUTIVE DIRECTOR meds include none. - hold off on FSBS, correctional algorithm - rpt A1c 5.3 Hypertension associated with diabetes ([facility]) Well controlled. - SHOWROOM EXECUTIVE DIRECTOR coreg - monitor and adjust as needed Chronic heart failure with preserved ejection fraction ([facility]) Echo 2023 normal EF. Euvolemic on exam - monitor I/O, daily weights - diuresis: SHOWROOM EXECUTIVE DIRECTOR lasix on hold - SHOWROOM EXECUTIVE DIRECTOR coreg Stage 3a chronic kidney disease ([facility]) Cre 1.05 at admit. Baseline approx 0.9-1.2. - caution with contrast - note plans for angiogram - monitor renal function closely - avoid hypotension, nephrotoxins as able 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 History of [...] EDT Office Visit [facility] Vascular Surg Edg [address] [place] [address] Drive [address] [place] [address] Lawrence Wolf MD [address] [place] [address] [place] [address] Pending Results Name Type Priority Associated Diagnoses [...] limb ischemia of left lower extremity (HCC) FL AMPUTATION THIGH THROUGH FEMUR ANY LEVEL 05/24/2025 8:06 AM EDT PAD (peripheral artery disease) Critical limb ischemia of left lower extremity (HCC) Special Needs pre op block per anethesia [facility] ANES GUIDANCE FOR NERVE BLOCK STAT 05/24/2025 [...] progress. Palliative Care Consult Note Consult Location: [facility] Length of Stay: 12 - chart review [...] helpful to explore this further with floor Director Database.Support provided along with [facility] role. Patient reports pain in her Lfoot, currently well controlled with current prn regimen. With plans for[facility] team to follow up with patient tomorrow. Decisional Capacity:Fully Decisional Based on determination of decisional capacity, health care surrogateagent:Inactive Advance Directive Document: No documents present in chart, educationprovided, documents pending Name (s): Sons: Edgar + Lydia more Additional information: adult children, majority rules, [...] presents per ems from [facility], toes amputated on left foot,here for wound [...] Paroxysmal atrial fibrillation (HCC) 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 Type 2 [...] true Transportation Needs: No Transportation Needs (05/01/2025) [facility] IP Transportation In the past 12 months, has lack of reliable transportation kept you frommedical appointments, meetings, work or from getting things needed fordaily living?: No Physical Activity: Inactive (05/01/2025) Exercise Vital Sign Days of Exercise per Week: 0 days Minutes of Exercise per Session: 0 min Stress: No Stress Concern Present (05/01/2025) [employer] [facility] - Occupational StressQuestionnaire Feeling of Stress : Not at all Social Connections: Low Risk (10/30/2023) Received from [facility] ([place], [place], [place], [place]) Family and Community Support Help with Day to Day Activities: Not on file Feeling Lonely or Isolated: Not on file Intimate Partner Violence: Not At Risk (08/06/2024) Received from [facility] Humiliation, Afraid, Rape, and Kick questionnaire Fear of Current or Ex-Partner: No Emotionally Abused: No Physically Abused: No Sexually Abused: No Housing Stability: Low Risk (08/06/2024) Received from [facility] Housing Stability Vital Sign Unable to Pay [...] BID with Meals1 'box' at 05/13/25 0904 CRISTNIE powder oral supplement 1 Packet 1 Packet [...] were not included. Name: Skyler Bautista ADDRESS: [address] [place], [place] [id number] : 1940 AGE: 84 y.o. Hospital: [facility] Requesting Attending: Dr. Aguirre Primary Care Physician: [...] PAD with ulcer statuspost LLE angiogram with SHOWROOM EXECUTIVE DIRECTOR of peroneal, tibioperoneal trunk andpopliteal arteries on [...] History: 01/30/2025 - Left LE angiogram with SHOWROOM EXECUTIVE DIRECTOR of peroneal and tibioperoneal trunkwith 1.5 x 80 mm and 2 x 200 balloons. SHOWROOM EXECUTIVE DIRECTOR of the popliteal artery with3.5 x 120 [...] Not Taking nalOXone (NARCAN) 4 mg/actuation Nasl Underwood, Non-Aerosol 0.1 mL by Nasalroute as needed for Opioid Reversal. Underwood the contents of one device(0.1mL) into one nostril upon signs of opioid overdose. Call 911. Mayrepeat dose in other nostril if no response within 2-3 minutes. 1 Each 0 nalOXone (NARCAN) 4 mg/actuation Nasl Underwood, Non-Aerosol 0.1 mL by Nasalroute as needed for Opioid Reversal. Underwood the contents of one device(0.1mL) into one [...] (NovoLOG) injection 1-10 Units 1-10 UnitsSubcutaneous QID WM Rajendra Petty MD (Ronny) CRISTINE powder oral supplement 1 Packet 1 Packet Oral BID Marcell Aguirre MD latanoprost (XALATAN) 0.005 % ophthalmic solution 1 Drop 1 DropOphthalmic Nightly Alyson Guillermo NP 1 Drop at 05/01/25 2239 LORazepam (ATIVAN) tablet 0.5 mg 0.5 mg [...] IR REVAS FEM POP ART UNILAT W SHOWROOM EXECUTIVE DIRECTOR 01/30/2025 IR REVAS FEM POP ART UNILAT W SHOWROOM EXECUTIVE DIRECTOR 01/30/2025 Lawrence Wolf MD EDG IR IR [...] (L) 05/03/2025 GLU 109 (H) 05/03/2025 Radiology: CA US LOWER EXTREMITY ARTERIAL DUPLEX COMPLETE Result [...] was seen in coordination with the physician real estate administrative assistant/nursepractitioner. Patient with LLE angiogram with SHOWROOM EXECUTIVE DIRECTOR of popliteal, TPT and peroneal artery15 s/p [...] PASTORAL CARE Routine 05/02/2025 12:50 PM EDT [facility] LOWER EXTREMITY ARTERIAL DUPLEX COMPLETE PAULETTE 05/02/2025 [...] IR REVAS FEM POP ART UNILAT W SHOWROOM EXECUTIVE DIRECTOR 01/30/2025 IR REVAS FEM POP ART UNILAT W SHOWROOM EXECUTIVE DIRECTOR 01/30/2025 Lawrence Wolf MD EDG IR IR ULTRASOUND GUIDED VASCULAR ACCESS 01/17/2025 IR ULTRASOUND GUIDED VASCULAR ACCESS 01/17/2025 Lawrence Wolf MD FLOIR IR ULTRASOUND GUIDED VASCULAR ACCESS 01/30/2025 IR ULTRASOUND GUIDED VASCULAR ACCESS 01/30/2025 Lawrence Wolf MD EDGIR JOINT REPLACEMENT TOE SURGERY Left 01/31/2025 Left foot hallux amputation; Surgeon: Dacia Mills DPM;Location: [facility] MA[facility] OR; Service: Podiatry No family history [...] true Transportation Needs: No Transportation Needs (05/01/2025) [facility] IP Transportation In the past 12 months, has lack of reliable transportation kept you frommedical appointments, meetings, work or from getting things needed fordaily living?: No Physical Activity: Inactive (05/01/2025) Exercise Vital Sign Days of Exercise per Week: 0 days Minutes of Exercise per Session: 0 min Stress: No Stress Concern Present (05/01/2025) [employer] [facility] - Occupational StressQuestionnaire Feeling of Stress : Not at all Received from [facility] ([place], [place], [place], [place]) Family and Community Support Intimate Partner Violence: Not At Risk (08/06/2024) Received from [facility] Humiliation, Afraid, Rape, and Kick questionnaire Fear of Current or Ex-Partner: No Emotionally Abused: No Physically Abused: No Sexually Abused: No Housing Stability: Low Risk (08/06/2024) Received from [facility] Housing Stability Vital Sign Unable to Pay [...] verbally consented permission allowing today's photographs - usingthe Redux mathew. Lab and radiographic data reviewed. Thank you for asking me to participate in your patient's care. Jovanni Montesinos, ACCOUNTING OFFICE MANAGER 05/01/2025 BLOOD GAS, VENOUS STAT 04/30/2025 5:56 [...] - 2.4 mg/dL 06/10/2025 11:11 AM EDT [facility] Blood VENOUS BLOOD / Unknown Venipuncture / Unknown 06/10/2025 10:32 AM EDT 06/10/2025 10:37 AM EDT us Trino Montiel MD CHEMISTRY ORDERABLES Final Re sult [facility] , [place] [address] * (ABNORMAL) COMPREHENSIVE METABOLIC PANEL (06/10/2025 10:32 [...] recommended by the National Kidney Foundation - [employer] Society of Nephrology Task Force. Blood VENOUS BLOOD / Unknown Venipuncture / Unknown 06/10/2025 10:32 AM EDT 06/10/2025 10:37 AM EDT Trino Montiel MD CHEMISTRY ORDERABLES Final Re sult [facility] [address] [facility] , [place] [address] * (ABNORMAL) CBC (06/10/2025 10:32 AM EDT) [...] 12.5 fL 06/10/2025 10:47 AM EDT [facility] Blood VENOUS BLOOD / Unknown Venipuncture / Unknown 06/10/2025 10:32 AM EDT 06/10/2025 10:37 AM EDT Trino Montiel MD HEMATOLOGY ORDERABLES Final R esult Performing Organization Address City/[facility]/ZIP Co de Phone Number [facility] [address] [facility], [place] [address] * ECG AND WAVEFORMS - TELEMETRY (06/10/2025 7:00 AM EDT) ECG INTERPRET Atrial Fib [facility] Comment:2 PVCs 06/10/2025 7:00 AM EDT Narrative [facility] - 06/10/2025 9:23 AM EDT ROUTINE SDP QRS 0.08 QT 0.41 See Clinical Report link for waveform capture us Unknown Provider POINT OF CARE CARDIOLOGY Final Result Performing Organization Address [facility] Co de Phone Number [facility] [address] [place], [place] [phone] * XR CHEST AP PORTABLE (06/09/2025 9:10 [...] Growth(A) 06/11/2025 10:16 AM EDT [facility] Culture >100,000 CFU/mL Klebsiella species SUSCEPTIBI LITY RESULT 06/11/2025 10:16 AM EDT [facility], [facility] Culture >100,000 CFU/mL Escherichia coli SUSCEPTIBI LITY RESULT 06/11/2025 10:16 AM EDT [facility] [employer], [facility] Culture 50,000 CFU/mL Proteus mirabilis SUSCEPTIBI LITY RESULT 06/11/2025 10:16 AM EDT [facility] [employer], [facility] Comment:No further workup. Urine STRUCTURE OF [...] AL ORDERABLES Final Result Performing Organization Address [facility]/ZIP Co de Phone Number [facility], [address], [place] [address] * EXTRA HUITRON URINE CX (06/09/2025 11:46 AM EDT) Urine STRUCTURE OF URINARY TRACT PROPER / Unknown 06/09/2025 11:46 AM EDT 06/09/2025 11:49 AM EDT us Brenda Arriaga APRN MICROBIOLOGY - GENER AL ORDERABLES Final Result Performing Organization Address [facility] [place] [address] * (ABNORMAL) URINALYSIS REFLEX (06/09/2025 11:46 AM EDT) UA Color Yellow 06/09/2025 12:13 PM EDT [facility] UA Appear Cloudy(A) Clear 06/09/2025 12:13 PM EDT [facility] UA Glucose Negative Negative mg/dL 06/09/2025 12:13 PM EDT [facility] UA Ketones Negative Negative mg/dL 06/09/2025 12:13 PM EDT [facility] UA Blood 1+ (0.06 - 0.1 [...] 06/09/2025 11:49 AM EDT Brenda Arriaga APRN URINE ORDERABLES Fin al Result [facility], [facility] [address] [facility] , [place] [address] * ECG AND WAVEFORMS - TELEMETRY (06/09/2025 7:00 AM EDT) ECG INTERPRET Atrial Fib [facility] 06/09/2025 7:00 AM EDT Narrative [facility] - 06/09/2025 8:53 AM EDT RT ROUTINE QRS 0.11 See Clinical Report link for waveform capture us Unknown Provider POINT OF CARE CARDIOLOGY Final Result Performing Organization Address [facility]/ZIP Co de Phone Number [facility] [address] [place] [address] * ECG AND WAVEFORMS - TELEMETRY (06/08/2025 8:23 PM EDT) ECG INTERPRET Atrial Fib [facility] 06/08/2025 8:23 PM EDT Narrative [facility] - 06/08/2025 8:25 PM EDT PVC'S-ROUTINE /KD QRS 0.09 See Clinical Report link for waveform capture us Unknown Provider POINT OF CARE CARDIOLOGY Final Result Performing Organization Address [facility] Co de Phone Number [facility] [address] [place] [address] * ECG AND WAVEFORMS - TELEMETRY (06/08/2025 8:24 AM EDT) ECG INTERPRET Atrial Fib [facility] 06/08/2025 8:24 AM EDT Narrative [facility] - 06/08/2025 9:15 AM EDT RT ROUTINE QRS 0.08 See Clinical Report link for waveform capture us Unknown Provider POINT OF CARE CARDIOLOGY Final Result Performing Organization Address City/[facility] Co de Phone Number [facility] [address] [place] [address] * ECG AND WAVEFORMS - TELEMETRY (06/07/2025 9:25 PM EDT) ECG INTERPRET Atrial Fib [facility] 06/07/2025 9:25 PM EDT Narrative [facility] - 06/07/2025 9:34 PM EDT PVC S -ROUTINE (AM) QRS 0.11 See Clinical Report link for waveform capture us Unknown Provider POINT OF CARE CARDIOLOGY Final Result Performing Organization Address [facility] de Phone Number [facility] [address] [place] [address] * ECG AND WAVEFORMS - TELEMETRY (06/07/2025 9:25 PM EDT) ECG INTERPRET Atrial Fib [facility] 06/07/2025 9:25 PM EDT Narrative [facility] - 06/07/2025 9:34 PM EDT ROUTINE (AM) QRS 0.11 See Clinical Report link for waveform capture us Unknown Provider POINT OF CARE CARDIOLOGY Final Result Performing Organization Address [facility] Phone Number [facility] [address] [place] [address] * ECG AND WAVEFORMS - TELEMETRY (06/07/2025 8:07 AM EDT) ECG INTERPRET Atrial Fib [facility] 06/07/2025 8:07 AM EDT Narrative [facility] - 06/07/2025 8:09 AM EDT EH - ROUTINE; PVCs QRS 0.10 See Clinical Report link for waveform capture us Unknown Provider POINT OF CARE CARDIOLOGY Final Result Performing Organization Address [facility] de Phone Number [facility] [address] [place] [address] * (ABNORMAL) BASIC METABOLIC PANEL (06/07/2025 7:09 [...] mmol/L 06/07/2025 8:30 AM EDT [facility] Anion Gap 11 7 - 16 mmol/L 06/07/2025 8:30 AM EDT [facility] Calcium 8.7(L) 8.8 - 10.4 mg/dL 06/07/2025 8:30 AM EDT [facility] Glucose Lvl 114(H) 70 - 99 mg/dL 06/07/2025 8:30 AM EDT [facility] BUN 19 8 - 23 mg/dL 06/07/2025 8:30 AM EDT [facility] Creatinine 1.07 0.51 - 1.30 mg/dL 06/07/2025 8:30 AM EDT [facility] eGFR (CKD-EPIcr 2020) 51(L) >=60 mL/min/1.7 3 m2 06/07/2025 8:30 AM EDT [facility] Comment:Estimated GFR was ca lculated using the CKD-EPIcr (2020) equation refit without race. The equation is recommended by the National Kidney [employer] - [employer] Nephrology Task Force. Blood VENOUS BLOOD / Unknown Venipuncture / Unknown 06/07/2025 7:09 AM EDT 06/07/2025 7:57 AM EDT us Trino Montiel MD CHEMISTRY ORDERABLES Final Re sult Performing Organization Address City/State/[facility] Co de Phone Number [facility] [address] [facility] , [address] [place] [phone] * ECG AND WAVEFORMS - TELEMETRY (06/06/2025 7:05 PM EDT) ECG INTERPRET Atrial Fib [facility] 06/06/2025 7:05 PM EDT Narrative [facility] - 06/06/2025 8:28 PM EDT ROUTINE/PVC/PAC/af FL 0.20 QRS 0.11 RR 0.80 QT 0.49 QTc 0.55 See Clinical Report link for waveform capture us Unknown Provider POINT OF CARE CARDIOLOGY Final Result [facility] [address] [place] [address] * ECG AND WAVEFORMS - TELEMETRY (06/06/2025 7:05 PM EDT) ECG INTERPRET Atrial Fib [facility] 06/06/2025 7:05 PM EDT Narrative [facility] - 06/06/2025 8:27 PM EDT ROUTINE/PVC/PAC/af FL 0.20 QRS 0.11 RR 0.80 QT 0.49 QTc 0.55 See Clinical Report link for waveform capture us Unknown Provider POINT OF CARE CARDIOLOGY Edited Result - Final Performing Organization Address [facility] de Phone Number [facility] [address] [place] [address] * ECG AND WAVEFORMS - TELEMETRY (06/06/2025 7:34 AM EDT) ECG INTERPRET Atrial Fib [facility] 06/06/2025 7:34 AM EDT Narrative [facility] - 06/06/2025 7:46 AM EDT ROUTINE W/ PVC (LZ) QRS 0.10 See Clinical Report link for waveform capture us Unknown Provider POINT OF CARE CARDIOLOGY Final Result Performing Organization Address [facility] de Phone Number [facility] [address] [place] [address] * ECG AND WAVEFORMS - TELEMETRY (06/05/2025 7:05 PM EDT) ECG INTERPRET Sinus Rhythm w/ First Degree AVB [facility] 06/05/2025 7:05 PM EDT Narrative [facility] - 06/05/2025 8:21 PM EDT ROUTINE/1stAVB/IVCD/af FL 0.22 QRS 0.12 RR 0.66 QT 0.40 QTc 0.49 See Clinical Report link for waveform capture us Unknown Provider POINT OF CARE CARDIOLOGY Final Result Performing Organization Address [facility] Co de Phone Number [facility] [address] [place] [address] * MAGNESIUM LEVEL (06/05/2025 7:27 AM EDT) Pathologist [facility] Magnesium 1.6 1.6 - 2.4 mg/dL 06/05/2025 8:27 AM EDT [facility] Blood VENOUS BLOOD / Unknown Venipuncture / Unknown 06/05/2025 7:27 AM EDT 06/05/2025 7:36 AM EDT us Trino Montiel MD CHEMISTRY ORDERABLES Final Re sult [facility] 1 [facility], [place] [address] * (ABNORMAL) COMPREHENSIVE METABOLIC PANEL (06/05/2025 7:27 AM EDT) Pathologist [facility] Sodium 135(L) 136 - 145 mmol/L 06/05/2025 [...] 06/05/2025 8:27 AM EDT [facility] Total Protein 6.3(L) 6.4 - 8.3 gm/dL 06/05/2025 8:27 AM EDT [facility] Bili Total 0.6 0.2 - 1.3 mg/dL 06/05/2025 8:27 AM EDT [facility] ALT 16 <=41 U/L 06/05/2025 8:27 AM EDT [facility] AST 29 <=40 U/L 06/05/2025 8:27 AM EDT [facility] Alk Phos 140(H) 36 - 123 U/L 06/05/2025 8:27 AM EDT [facility] eGFR (CKD-EPIcr 2020) 54(L) >=60 mL/min/1.7 3 m2 06/05/2025 8:27 AM EDT [facility] Comment:Estimated GFR was ca lculated using the CKD-EPIcr (2020) equation refit without race. The equation is recommended by the National Kidney Foundation - [employer] of Nephrology Task Force. Blood VENOUS BLOOD / Unknown Venipuncture / Unknown 06/05/2025 7:27 AM EDT 06/05/2025 7:36 AM EDT us Trino Montiel MD CHEMISTRY ORDERABLES Final Re sult [facility] [address] [facility] , [place] [address] * (ABNORMAL) CBC (06/05/2025 7:27 AM EDT) WBC 4.8 3.7 - 10.3 x10(3)/mcL 06/05/2025 7:55 AM EDT [facility] RBC 2.44(L) 3.90 - 5.20 x10(6)/mcL 06/05/2025 7:55 AM EDT [facility] Hgb 8.4(L) 11.2 - 15.7 g/dL 06/05/2025 7:55 AM EDT [facility] Hct 26.9(L) 34.0 - 45.0 % 06/05/2025 7:55 AM EDT [facility] MCV 110.2(H) 80.0 - 100.0 fL 06/05/2025 7:55 AM EDT [facility] MCH 34.4(H) 26.0 - 34.0 pg 06/05/2025 7:55 AM EDT [facility] MCHC 31.2 30.7 - 35.5 g/dL 06/05/2025 7:55 AM EDT [facility] RDW 19.1(H) <=14.9 % 06/05/2025 7:55 AM EDT [facility] Platelet 106(L) 155 - 369 x10(3)/mcL 06/05/2025 7:55 AM EDT [facility] MPV 12.4 8.8 - 12.5 fL 06/05/2025 7:55 AM EDT [facility] Blood VENOUS BLOOD / Unknown Venipuncture / Unknown 06/05/2025 7:27 AM EDT 06/05/2025 7:36 AM EDT us Trino Montiel MD HEMATOLOGY ORDERABLES Final R esult [facility], [address], [place] [address] * ECG AND WAVEFORMS - TELEMETRY (06/05/2025 7:09 AM EDT) [facility] Signature ECG INTERPRET Atrial Fib [facility] 06/05/2025 7:09 AM EDT Narrative [facility] - 06/05/2025 8:00 AM EDT ROUTINE W/ PVC (LZ) QRS 0.11 See Clinical Report link for waveform capture us Unknown Provider POINT OF CARE CARDIOLOGY Final Result Performing Organization Address City/[facility]/ZIP Co de Phone Number [facility] [address] [place] [address] * ECG AND WAVEFORMS - TELEMETRY (06/04/2025 7:10 PM EDT) ECG INTERPRET Atrial Fib [facility] 06/04/2025 7:10 PM EDT Narrative [facility] - 06/04/2025 8:04 PM EDT ROUTINE/PVCs/af QRS 0.07 See Clinical Report link for waveform capture us Unknown Provider POINT OF CARE CARDIOLOGY Final Result [facility] 1 [place] [phone] * XR CHEST PA AND LATERAL (06/04/2025 [...] [facility] Platelet 121(L) 155 - 369 x10(3)/[facility] 06/04/2025 8:12 AM EDT [facility] MPV 12.4 8.8 - 12.5 fL 06/04/2025 8:12 AM EDT [facility] Blood VENOUS BLOOD / Unknown Venipuncture / Unknown 06/04/2025 7:52 AM EDT 06/04/2025 7:57 AM EDT us Stephen Pickard MD HEMATOLOGY ORDERABLES Final Result [facility] [address] [facility] , [place] [address] * (ABNORMAL) RENAL FUNCTION PANEL (06/04/2025 7:52 AM EDT) Sodium 136 136 - 145 mmol/L 06/04/2025 8:30 AM EDT [facility] Potassium 4.0 3.5 - 5.0 mmol/L 06/04/2025 8:30 AM EDT [facility] Chloride 103 98 - 107 mmol/L 06/04/2025 8:30 AM EDT [facility] Total CO2 23 22 - 29 mmol/L 06/04/2025 8:30 AM EDT [facility] Anion Gap 10 7 - 16 mmol/L 06/04/2025 8:30 AM EDT [facility] Calcium 8.8 8.8 - 10.4 mg/dL 06/04/2025 8:30 AM EDT [facility] Glucose Lvl 135(H) 70 - 99 mg/dL 06/04/2025 8:30 AM EDT [facility] BUN 14 8 - 23 mg/dL 06/04/2025 8:30 AM EDT [facility] Creatinine 0.92 0.51 - 1.30 mg/dL 06/04/2025 8:30 AM EDT [facility] Albumin 3.1(L) 3.2 - 4.6 gm/dL 06/04/2025 8:30 AM EDT [facility] Phosphorus 3.7 2.5 - 4.5 mg/dL 06/04/2025 8:30 AM EDT [facility] eGFR (CKD-EPIcr 2020) 61 >=60 mL/min/1.7 3 m2 06/04/2025 8:30 AM EDT [facility] Comment:Estimated GFR was ca lculated using the CKD-EPIcr (2020) equation refit without race. The equation is recommended by the National Kidney Foundation - [place] [employer] of Nephrology Task Force. Blood VENOUS BLOOD / Unknown Venipuncture / Unknown 06/04/2025 7:52 AM EDT 06/04/2025 7:57 AM EDT us Stephen Pickard MD CHEMISTRY ORDERABLES Final R esult [facility] [address] [facility] , [address] [place] [phone] * ECG AND WAVEFORMS - TELEMETRY (06/04/2025 7:29 AM EDT) ECG INTERPRET Atrial Fib [facility] 06/04/2025 7:29 AM EDT Narrative [facility] - 06/04/2025 8:19 AM EDT ROUTINE W/ PVC (LZ) QRS 0.11 See Clinical Report link for waveform capture us Unknown Provider POINT OF CARE CARDIOLOGY Final Result Performing Organization Address [facility] Co de Phone Number [facility] [address] [place] [address] * ECG AND WAVEFORMS - TELEMETRY (06/03/2025 8:07 PM EDT) [facility] ECG INTERPRET Atrial Fib [facility] 06/03/2025 8:07 PM EDT Narrative [facility] - 06/03/2025 8:11 PM EDT w/ PVC ROUTINE / RG See Clinical Report link for waveform capture us Unknown Provider POINT OF CARE CARDIOLOGY Final Result Performing Organization Address [facility] de Phone Number [facility] [address] [place] [address] * ECG AND WAVEFORMS - TELEMETRY (06/03/2025 7:00 AM EDT) [facility] ECG INTERPRET Atrial Fib [facility] 06/03/2025 7:00 AM EDT Narrative [facility] - 06/03/2025 8:44 AM EDT RS, ROUTINE, PVCS QRS 0.08 See Clinical Report link for waveform capture us Unknown Provider POINT OF CARE CARDIOLOGY Final Result Performing Organization Address [facility] de Phone Number [facility] [address] [place] [address] * (ABNORMAL) RENAL FUNCTION PANEL (06/03/2025 5:56 AM EDT) [facility] Sodium 134(L) 136 - 145 mmol/L 06/03/2025 6:51 AM EDT [facility] Potassium 3.7 3.5 - 5.0 mmol/L 06/03/2025 6:51 AM EDT [facility] Chloride 103 98 - 107 mmol/L 06/03/2025 6:51 AM EDT [facility] Total CO2 22 22 - 29 mmol/L 06/03/2025 6:51 AM EDT [facility] Anion Gap 9 7 - 16 mmol/L 06/03/2025 6:51 AM EDT [facility] Calcium 8.4(L) 8.8 - 10.4 mg/dL 06/03/2025 6:51 AM EDT [facility] Glucose Lvl 117(H) 70 - 99 mg/dL 06/03/2025 6:51 AM EDT [facility] BUN 9 8 - 23 mg/dL 06/03/2025 6:51 AM EDT [facility] Creatinine 0.80 0.51 - 1.30 mg/dL 06/03/2025 6:51 AM EDT [facility] Albumin 3.0(L) 3.2 - 4.6 gm/dL 06/03/2025 6:51 AM EDT [facility] Phosphorus 3.0 2.5 - 4.5 mg/dL 06/03/2025 6:51 AM EDT [facility] eGFR (CKD-EPIcr 2020) 72 >=60 mL/min/1.7 3 m2 06/03/2025 6:51 AM EDT [facility] Comment:Estimated GFR was ca lculated using the CKD-EPIcr (2020) equation refit without race. The equation is recommended by the National Kidney Foundation - [place] [employer] of Nephrology Task Force. Blood VENOUS BLOOD / Unknown Venipuncture / Unknown 06/03/2025 5:56 AM EDT 06/03/2025 6:18 AM EDT us Stephen Pickard MD CHEMISTRY ORDERABLES Final R esult [facility] [address] [facility] , [address] [place] [phone] * (ABNORMAL) CBC (06/03/2025 5:56 AM EDT) WBC 3.5(L) 3.7 - 10.3 x10(3)/mcL 06/03/2025 6:32 AM EDT [facility] RBC 2.23(L) 3.90 - 5.20 x10(6)/mcL 06/03/2025 6:32 AM EDT [facility] Hgb 7.8(L) 11.2 - 15.7 g/dL 06/03/2025 6:32 AM EDT [facility] Hct 24.5(L) 34.0 - 45.0 % 06/03/2025 6:32 AM EDT [facility] MCV 109.9(H) 80.0 - 100.0 fL 06/03/2025 6:32 AM EDT [facility] MCH 35.0(H) 26.0 - 34.0 pg 06/03/2025 6:32 AM EDT [facility] MCHC 31.8 30.7 - 35.5 g/dL 06/03/2025 6:32 AM EDT [facility] RDW 19.0(H) <=14.9 % 06/03/2025 6:32 AM EDT [facility] Platelet 109(L) 155 - 369 x10(3)/mcL 06/03/2025 6:32 AM EDT [facility] MPV 12.5 8.8 - 12.5 fL 06/03/2025 6:32 AM EDT [facility] Blood VENOUS BLOOD / Unknown Venipuncture / Unknown 06/03/2025 5:56 AM EDT 06/03/2025 6:19 AM EDT us Stephen Pickard MD HEMATOLOGY ORDERABLES Final Result [facility] [address] [facility] , [place] [address] * ECG AND WAVEFORMS - TELEMETRY (06/02/2025 7:00 PM EDT) ECG INTERPRET Atrial Fib [facility] 06/02/2025 7:00 PM EDT Narrative [facility] - 06/02/2025 7:37 PM EDT ROUTINE W/ PVCS(CW) QRS 0.06 See Clinical Report link for waveform capture us Unknown Provider POINT OF CARE CARDIOLOGY Final Result Performing Organization Address [facility] Co de Phone Number [facility] 1 [place], [place] [phone] * (ABNORMAL) GLUCOSE METER POC (06/02/2025 8:54 AM EDT) Glucose Meter POC 102(H) 70 - 100 mg/dL 06/02/2025 8:56 AM EDT [facility] Sample Type Capillary 06/02/2025 8:56 AM EDT [facility] Patient Status Non-Critical Patient 06/02/2025 8:56 AM EDT [facility] Blood BLOOD SPECIMEN / Unknown 06/02/2025 8:54 AM EDT 06/02/2025 8:56 AM EDT us Stephen Pickard MD POINT OF CARE TEST ORDERABLE S Final Result Performing Organization Address [facility] Co de Phone Number [facility] [address] [place] [address] * ECG AND WAVEFORMS - TELEMETRY (06/02/2025 7:03 AM EDT) ECG INTERPRET Atrial Fib [facility] Comment:PVCs 06/02/2025 7:03 AM EDT Narrative [facility] - 06/02/2025 8:44 AM EDT PVC's - ROUTINE - KB QRS 0.08 See Clinical Report link for waveform capture us Unknown Provider POINT OF CARE CARDIOLOGY Final Result Performing Organization Address [facility]/ZIP Co de Phone Number [facility] [address] [place] [address] * (ABNORMAL) GLUCOSE METER POC (06/01/2025 9:55 PM EDT) Glucose Meter POC 175(H) 70 - 100 mg/dL 06/01/2025 9:57 PM EDT [facility] Sample Type Capillary 06/01/2025 9:57 PM EDT [facility] Patient Status Non-Critical Patient 06/01/2025 9:57 PM EDT [facility] Blood BLOOD SPECIMEN / Unknown 06/01/2025 9:55 PM EDT 06/01/2025 9:57 PM EDT us Stephen Pickard MD POINT OF CARE TEST ORDERABLE S Final Result Performing Organization Address City/[facility]/ZIP Co de Phone Number [facility] [address] [place] [address] * ECG AND WAVEFORMS - TELEMETRY (06/01/2025 7:00 PM EDT) ECG INTERPRET Atrial Fib [facility] 06/01/2025 7:00 PM EDT Narrative [facility] - 06/01/2025 7:30 PM EDT ROUTINE W/ PVCS(CW) QRS 0.06 See Clinical Report link for waveform capture us Unknown Provider POINT OF CARE CARDIOLOGY Final Result Performing Organization Address [facility] Co de Phone Number [facility] [address] [place] [address] * XR CHEST AP PORTABLE (06/01/2025 4:14 [...] - 100 mg/dL 06/01/2025 2:55 PM EDT [facility] Sample Type Capillary 06/01/2025 2:55 PM EDT [facility] Patient Status Non-Critical Patient 06/01/2025 2:55 PM EDT [facility] Blood BLOOD SPECIMEN / Unknown 06/01/2025 2:54 PM EDT 06/01/2025 2:55 PM EDT us Stephen Pickard MD POINT OF CARE TEST ORDERABLE S Final Result Performing Organization Address City/[facility]/ZIP Co de Phone Number [facility] [address] [place] [address] * ECG AND WAVEFORMS - TELEMETRY (06/01/2025 1:04 PM EDT) ECG INTERPRET Error [facility] 06/01/2025 1:04 PM EDT Narrative [facility] - 06/01/2025 1:05 PM EDT See Clinical Report link for waveform capture us Unknown Provider POINT OF CARE CARDIOLOGY Final Result Performing Organization Address City/[facility]/ZIP Co de Phone Number [facility] [address] [place] [address] * ECG AND WAVEFORMS - TELEMETRY (06/01/2025 12:35 PM EDT) ECG INTERPRET Atrial Fib [facility] Comment:PVCs 06/01/2025 12:3 5 PM EDT Narrative [facility] - 06/01/2025 12:41 PM EDT FREQ. PVC's RHYTHM CHANGE - KB See Clinical Report link for waveform capture us Unknown Provider POINT OF CARE CARDIOLOGY Final Result Performing Organization Address [facility] Co de Phone Number [facility] [address] [place] [address] * (ABNORMAL) GLUCOSE METER POC (06/01/2025 9:41 AM EDT) Glucose Meter POC 109(H) 70 - 100 mg/dL 06/01/2025 9:57 AM EDT [facility] Sample Type Capillary 06/01/2025 9:57 AM EDT [facility] Patient Status Non-Critical Patient 06/01/2025 9:57 AM EDT [facility] Blood BLOOD SPECIMEN / Unknown 06/01/2025 9:41 AM EDT 06/01/2025 9:57 AM EDT us Stephen Pickard MD POINT OF CARE TEST ORDERABLE S Final Result Performing Organization Address [facility] de Phone Number [facility] [address] [place] [address] * ECG AND WAVEFORMS - TELEMETRY (06/01/2025 7:00 AM EDT) ECG INTERPRET Atrial Fib [facility] Comment:with PVCs 06/01/2025 7:00 AM EDT Narrative [facility] - 06/01/2025 8:17 AM EDT ROUTINE - KB QRS 0.05 See Clinical Report link for waveform capture us Unknown Provider POINT OF CARE CARDIOLOGY Final Result Performing Organization Address City/[facility] Co de Phone Number [facility] [address] [place] [address] * (ABNORMAL) GLUCOSE METER POC (05/31/2025 9:21 PM EDT) Glucose Meter POC 172(H) 70 - 100 mg/dL 05/31/2025 9:24 PM EDT [facility] Sample Type Capillary 05/31/2025 9:24 PM EDT [facility] Patient Status Non-Critical Patient 05/31/2025 9:24 PM EDT [facility] Blood BLOOD SPECIMEN / Unknown 05/31/2025 9:21 PM EDT 05/31/2025 9:24 PM EDT us Stephen Pickard MD POINT OF CARE TEST ORDERABLE S Final Result Performing Organization Address [facility]/ZIP Co de Phone Number [facility] [address] [place] [address] * ECG AND WAVEFORMS - TELEMETRY (05/31/2025 7:00 PM EDT) ECG INTERPRET Atrial Fib [facility] 05/31/2025 7:00 PM EDT Narrative [facility] - 05/31/2025 7:27 PM EDT ROUTINE W/ PVCS(CW) See Clinical Report link for waveform capture us Unknown Provider POINT OF CARE CARDIOLOGY Final Result Performing Organization Address [facility]/ZIP Co de Phone Number [facility] [address] [place] [address] * (ABNORMAL) GLUCOSE METER POC (05/31/2025 6:37 PM EDT) Glucose Meter POC 167(H) 70 - 100 mg/dL 05/31/2025 6:39 PM EDT [facility] Sample Type Capillary 05/31/2025 6:39 PM EDT [facility] Patient Status Non-Critical Patient 05/31/2025 6:39 PM EDT [facility] Blood BLOOD SPECIMEN / Unknown 05/31/2025 6:37 PM EDT 05/31/2025 6:39 PM EDT Stephen Pickard MD POINT OF CARE TEST ORDERABLE S Final Result [facility] [address] [place] [address] * GLUCOSE METER POC (05/31/2025 4:29 PM EDT) [facility] Signature Glucose Meter POC 95 70 - 100 mg/dL 05/31/2025 4:30 PM EDT [facility] Sample Type Capillary 05/31/2025 4:30 PM EDT [facility] Patient Status Non-Critical Patient 05/31/2025 4:30 PM EDT [facility] Blood BLOOD SPECIMEN / Unknown 05/31/2025 4:29 PM EDT 05/31/2025 4:30 PM EDT Stephen Pickard MD POINT OF CARE TEST ORDERABLE S Final Result Performing Organization Address City/[facility]/ZIP Co de Phone Number [facility] [address] [place] [address] * ECG AND WAVEFORMS - TELEMETRY (05/31/2025 4:24 PM EDT) ECG INTERPRET Atrial Fib [facility] 05/31/2025 4:24 PM EDT Narrative [facility] - 05/31/2025 4:25 PM EDT TACHY//AC See Clinical Report link for waveform capture us Unknown Provider POINT OF CARE CARDIOLOGY Final Result Performing Organization Address City/[facility]/ZIP Co de Phone Number [facility] [address] [place] [address] * ECG AND WAVEFORMS - TELEMETRY (05/31/2025 4:23 PM EDT) ECG INTERPRET Atrial Fib [facility] 05/31/2025 4:23 PM EDT Narrative [facility] - 05/31/2025 4:24 PM EDT See Clinical Report link for waveform capture us Unknown Provider POINT OF CARE CARDIOLOGY Final Result Performing Organization Address [facility] Co de Phone Number [facility] [address] [place] [address] * (ABNORMAL) GLUCOSE METER POC (05/31/2025 11:45 AM EDT) Glucose Meter POC 123(H) 70 - 100 mg/dL 05/31/2025 11:47 AM EDT [facility] Sample Type Capillary 05/31/2025 11:47 AM EDT [facility] Patient Status Non-Critical Patient 05/31/2025 11:47 AM EDT [facility] Blood BLOOD SPECIMEN / Unknown 05/31/2025 11:45 AM EDT 05/31/2025 11:47 AM EDT us Stephen Pickard MD POINT OF CARE TEST ORDERABLE S Final Result Performing Organization Address [facility] Co de Phone Number [facility] [address] [place] [address] * ECG AND WAVEFORMS - TELEMETRY (05/31/2025 10:35 AM EDT) ECG INTERPRET Atrial Fib [facility] 05/31/2025 10:3 5 AM EDT Narrative [facility] - 05/31/2025 10:36 AM EDT See Clinical Report link for waveform capture us Unknown Provider POINT OF CARE CARDIOLOGY Final Result Performing Organization Address [facility] Co de Phone Number [facility] [address] [place] [address] * ECG AND WAVEFORMS - TELEMETRY (05/31/2025 7:58 AM EDT) ECG INTERPRET Atrial Fib [facility] 05/31/2025 7:58 AM EDT Narrative [facility] - 05/31/2025 8:02 AM EDT ROUTINE//AC See Clinical Report link for waveform capture us Unknown Provider POINT OF CARE CARDIOLOGY Final Result [facility] [address] [place], [place] [id number] * (ABNORMAL) RENAL FUNCTION PANEL (05/31/2025 7:29 [...] recommended by the National Kidney Foundation - [place] Society of Nephrology Task Force. Blood VENOUS BLOOD / Unknown Venipuncture / Unknown 05/31/2025 7:29 AM EDT 05/31/2025 7:53 AM EDT us Stephen Pickard MD CHEMISTRY ORDERABLES Final R esult [facility] [address] [facility], [place] [address] * (ABNORMAL) CBC (05/31/2025 7:29 AM EDT) [...] Stephen Pickard MD HEMATOLOGY ORDERABLES Final Result [facility] [employer] [facility] [address] [facility], [place] [address] * (ABNORMAL) GLUCOSE METER POC (05/30/2025 9:16 PM EDT) Glucose Meter POC 173(H) 70 - 100 mg/dL 05/30/2025 9:17 PM EDT [facility] Sample Type Capillary 05/30/2025 9:17 PM EDT [facility] Patient Status Non-Critical Patient 05/30/2025 9:17 PM EDT [facility] Blood BLOOD SPECIMEN / Unknown 05/30/2025 9:16 PM EDT 05/30/2025 9:17 PM EDT us Stephen Pickard MD POINT OF CARE TEST ORDERABLE S Final Result Performing Organization Address [facility]/ZIP Co de Phone Number [facility] [address] [place] [address] * ECG AND WAVEFORMS - TELEMETRY (05/30/2025 7:03 PM EDT) ECG INTERPRET Atrial Fib [facility] 05/30/2025 7:03 PM EDT Narrative [facility] - 05/30/2025 8:08 PM EDT ROUTINE (HM) QRS 0.09 See Clinical Report link for waveform capture us Unknown Provider POINT OF CARE CARDIOLOGY Final Result Performing Organization Address City/[facility]/ZIP Co de Phone Number [facility] [address] [place] [address] * (ABNORMAL) GLUCOSE METER POC (05/30/2025 5:42 PM EDT) Glucose Meter POC 166(H) 70 - 100 mg/dL 05/30/2025 5:43 PM EDT [facility] Sample Type Capillary 05/30/2025 5:43 PM EDT [facility] Patient Status Non-Critical Patient 05/30/2025 5:43 PM EDT [facility] Blood BLOOD SPECIMEN / Unknown 05/30/2025 5:42 PM EDT 05/30/2025 5:43 PM EDT us Stephen Pickard MD POINT OF CARE TEST ORDERABLE S Final Result Performing Organization Address [facility] Co de Phone Number [address] [address] * (ABNORMAL) GLUCOSE METER POC (05/30/2025 11:32 AM EDT) Glucose Meter POC 179(H) 70 - 100 mg/dL 05/30/2025 11:33 AM EDT [facility] Sample Type Capillary 05/30/2025 11:33 AM EDT [facility] Patient Status Non-Critical Patient 05/30/2025 11:33 AM EDT [facility] Blood BLOOD SPECIMEN / Unknown 05/30/2025 11:32 AM EDT 05/30/2025 11:33 AM EDT us Stephen Pickard MD POINT OF CARE TEST ORDERABLE S Final Result Performing Organization Address [facility]/ZIP Co de Phone Number [address] [address] * (ABNORMAL) GLUCOSE METER POC (05/30/2025 8:25 AM EDT) Glucose Meter POC 104(H) 70 - 100 mg/dL 05/30/2025 8:26 AM EDT [facility] Sample Type Capillary 05/30/2025 8:26 AM EDT [facility] Patient Status Non-Critical Patient 05/30/2025 8:26 AM EDT [facility] Blood BLOOD SPECIMEN / Unknown 05/30/2025 8:25 AM EDT 05/30/2025 8:26 AM EDT us Stephen Pickard MD POINT OF CARE TEST ORDERABLE S Final Result [facility] 1 [place] [address] * ECG AND WAVEFORMS - TELEMETRY (05/30/2025 7:00 AM EDT) Pathologist [facility] ECG INTERPRET Atrial Fib [facility] 05/30/2025 7:00 AM EDT Narrative [facility] - 05/30/2025 9:15 AM EDT RS, ROUTINE QRS 0.06 See Clinical Report link for waveform capture us Unknown Provider POINT OF CARE CARDIOLOGY Final Result Performing Organization Address City/[facility]/ZIP Co de Phone Number [facility] 1 [place] [address] * (ABNORMAL) RENAL FUNCTION PANEL (05/30/2025 7:00 AM EDT) [facility] Sodium 135(L) 136 - 145 mmol/L 05/30/2025 [...] 05/30/2025 8:53 AM EDT [facility] Albumin 2.9(L) 3.2 - 4.6 gm/dL 05/30/2025 8:53 AM EDT [facility] Phosphorus 2.2(L) 2.5 - 4.5 mg/dL 05/30/2025 8:53 AM EDT [facility] eGFR (CKD-EPIcr 2020) 72 >=60 mL/min/1.7 3 m2 05/30/2025 8:53 AM EDT [facility] Comment:Estimated GFR was ca lculated using the CKD-EPIcr (2020) equation refit without race. The equation is recommended by the National Kidney Foundation - [place] Society of Nephrology Task Force. Blood VENOUS BLOOD / Unknown Venipuncture / Unknown 05/30/2025 7:00 AM EDT 05/30/2025 8:17 AM EDT us Stephen Pickard MD CHEMISTRY ORDERABLES Final R esult [facility] [address] [facility] , [place] [address] * (ABNORMAL) CBC (05/30/2025 7:00 AM EDT) WBC 3.4(L) 3.7 - 10.3 x10(3)/mcL 05/30/2025 8:26 AM EDT [facility] RBC 2.09(L) 3.90 - 5.20 x10(6)/mcL 05/30/2025 8:26 AM EDT [facility] Hgb 7.1(L) 11.2 - 15.7 g/dL 05/30/2025 8:26 AM EDT [facility] Hct 22.6(L) 34.0 - 45.0 % 05/30/2025 8:26 AM EDT [facility] MCV 108.1(H) 80.0 - 100.0 fL 05/30/2025 8:26 AM EDT [facility] MCH 34.0 26.0 - 34.0 pg 05/30/2025 8:26 AM EDT [facility] MCHC 31.4 30.7 - 35.5 g/dL 05/30/2025 8:26 AM EDT [facility] RDW 19.3(H) <=14.9 % 05/30/2025 8:26 AM EDT [facility] Platelet 77(L) 155 - 369 x10(3)/mcL 05/30/2025 8:26 AM EDT [facility] MPV 12.5 8.8 - 12.5 fL 05/30/2025 8:26 AM EDT [facility] Blood VENOUS BLOOD / Unknown Venipuncture / Unknown 05/30/2025 7:00 AM EDT 05/30/2025 8:17 AM EDT us Stephen Pickard MD HEMATOLOGY ORDERABLES Final Result Performing Organization Address City/[facility]/ZIP Co de Phone Number [facility], [address], [place] [address] * (ABNORMAL) GLUCOSE METER POC (05/29/2025 9:42 PM EDT) Glucose Meter POC 133(H) 70 - 100 mg/dL 05/29/2025 9:44 PM EDT [facility] Sample Type Capillary 05/29/2025 9:44 PM EDT [facility] Patient Status Non-Critical Patient 05/29/2025 9:44 PM EDT [facility] Blood BLOOD SPECIMEN / Unknown 05/29/2025 9:42 PM EDT 05/29/2025 9:44 PM EDT us Stephen Pickard MD POINT OF CARE TEST ORDERABLE S Final Result Performing Organization Address City/[facility]/ZIP Co de Phone Number [facility] [address] [place] [address] * ECG AND WAVEFORMS - TELEMETRY (05/29/2025 7:03 PM EDT) ECG INTERPRET Atrial Fib [facility] 05/29/2025 7:03 PM EDT Narrative [facility] - 05/29/2025 7:59 PM EDT ROUTINE (HM) QRS 0.09 See Clinical Report link for waveform capture us Unknown Provider POINT OF CARE CARDIOLOGY Final Result [facility] [address] [place] [address] * (ABNORMAL) GLUCOSE METER POC (05/29/2025 5:39 PM EDT) Glucose Meter POC 152(H) 70 - 100 mg/dL 05/29/2025 5:41 PM EDT [facility] Sample Type Capillary 05/29/2025 5:41 PM EDT [facility] Patient Status Non-Critical Patient 05/29/2025 5:41 PM EDT [facility] Blood BLOOD SPECIMEN / Unknown 05/29/2025 5:39 PM EDT 05/29/2025 5:41 PM EDT us Stephen Pickard MD POINT OF CARE TEST ORDERABLE S Final Result Performing Organization Address [facility]/[place] [address] * GLUCOSE METER POC (05/29/2025 11:32 AM EDT) Glucose Meter POC 86 70 - 100 mg/dL 05/29/2025 11:33 AM EDT [facility] Sample Type Capillary 05/29/2025 11:33 AM EDT [facility] Patient Status Non-Critical Patient 05/29/2025 11:33 AM EDT [facility] Blood BLOOD SPECIMEN / Unknown 05/29/2025 11:32 AM EDT 05/29/2025 11:33 AM EDT us Stephen Pickard MD POINT OF CARE TEST ORDERABLE S Final Result [facility] 1 [place] [address] * (ABNORMAL) GLUCOSE METER POC (05/29/2025 7:20 AM EDT) [facility] Glucose Meter POC 106(H) 70 - 100 mg/dL 05/29/2025 7:22 AM EDT [facility] Sample Type Capillary 05/29/2025 7:22 AM EDT [facility] Patient Status Non-Critical Patient 05/29/2025 7:22 AM EDT [facility] Blood BLOOD SPECIMEN / Unknown 05/29/2025 7:20 AM EDT 05/29/2025 7:22 AM EDT us Stephen Pickard MD POINT OF CARE TEST ORDERABLE S Final Result Performing Organization Address City/[facility]/ZIP Co de Phone Number [facility] [address] [place] [address] * ECG AND WAVEFORMS - TELEMETRY (05/29/2025 7:00 AM EDT) [facility] ECG INTERPRET Atrial Fib [facility] 05/29/2025 7:00 AM EDT Narrative [facility] - 05/29/2025 7:50 AM EDT ECB - ROUTINE QRS 0.11 See Clinical Report link for waveform capture us Unknown Provider POINT OF CARE CARDIOLOGY Final Result Performing Organization Address City/[facility]/ZIP Co de Phone Number [facility] [address] [place] [address] * VANCOMYCIN LEVEL AUC1 (05/29/2025 5:55 AM EDT) Pathologist [facility] Vancomycin AUC1 12.6 mcg/mL 6:54 AM EDT [facility] [employer] Blood VENOUS STRUCTURE / Unknown Line / Unknown 05/29/2025 5:55 AM EDT 05/29/2025 6:09 AM EDT us Stephen Pickard MD CHEMISTRY ORDERABLES Final R esult [facility] [address] [facility] , [place] [address] * (ABNORMAL) CBC (05/29/2025 5:55 AM EDT) [...] R esult [facility] [address] [facility] , [place] [address] * (ABNORMAL) BASIC METABOLIC PANEL (05/29/2025 5:55 AM EDT) Sodium 137 136 - 145 mmol/L 05/29/2025 6:40 AM EDT [facility] Potassium 4.2 3.5 - 5.0 mmol/L 05/29/2025 6:40 AM EDT [facility] Chloride 107 98 - 107 mmol/L 05/29/2025 6:40 AM EDT [facility] Total CO2 21(L) 22 - 29 mmol/L 05/29/2025 6:40 AM EDT [facility] Anion Gap 9 7 - 16 mmol/L 05/29/2025 6:40 AM EDT [facility] Calcium 8.1(L) 8.8 - 10.4 mg/dL 05/29/2025 6:40 AM EDT [facility] Glucose Lvl 115(H) 70 - 99 mg/dL 05/29/2025 6:40 AM EDT [facility] BUN 14 8 - 23 mg/dL 05/29/2025 6:40 AM EDT [facility] Creatinine 0.81 0.51 - 1.30 mg/dL 05/29/2025 6:40 AM EDT [facility] eGFR (CKD-EPIcr 2020) 71 >=60 mL/min/1.7 3 m2 05/29/2025 6:40 AM EDT [facility] Comment:Estimated GFR was ca lculated using the CKD-EPIcr (2020) equation refit without race. The equation is recommended by the National Kidney Foundation - [place] Society of Nephrology Task Force. Blood VENOUS STRUCTURE / Unknown Line / Unknown 05/29/2025 5:55 AM EDT 05/29/2025 6:09 AM EDT us Luis Manuel Mays MD CHEMISTRY ORDERABLES Final Re sult [facility] [address] [facility] , [place] [address] * MAGNESIUM LEVEL (05/29/2025 5:55 AM EDT) [facility] Magnesium 2.0 1.6 - 2.4 mg/dL 05/29/2025 6:40 AM EDT [facility] Blood VENOUS STRUCTURE / Unknown Line / Unknown 05/29/2025 5:55 AM EDT 05/29/2025 6:09 AM EDT Luis Manuel Mays MD CHEMISTRY ORDERABLES Final Re sult Performing Organization Address [facility] de Phone Number [facility] , [place] [address] * (ABNORMAL) PHOSPHORUS LEVEL (05/29/2025 5:55 AM EDT) [facility] Phosphorus 2.4(L) 2.5 - 4.5 mg/dL 05/29/2025 6:40 AM EDT [facility] Blood VENOUS STRUCTURE / Unknown Line / Unknown 05/29/2025 5:55 AM EDT 05/29/2025 6:09 AM EDT Luis Manuel Mays MD CHEMISTRY ORDERABLES Final Re sult Performing Organization Address [facility] Phone Number [facility] [employer] , [place] [phone] * (ABNORMAL) TROPONIN-T HIGH SENSITIVITY 2HR (05/29/2025 2:31 AM EDT) [facility] sp-bLuwawipp-O 2HR 47(H) <14 ng/L 05/29/2025 2:57 AM EDT [facility] hs-cTnT 2Hr Delta from Baseline -3 <4 ng/L 05/29/2025 2:57 AM EDT [facility] [employer] Blood VENOUS BLOOD / Unknown Venipuncture / Unknown 05/29/2025 2:31 AM EDT 05/29/2025 2:33 AM EDT Narrative [facility] [employer] - 05/29/2025 2:57 AM EDT Ingestion of angie doses of biotin (>5 mg/day) taken within 8 hours of drawing blood sample can interfere with this immunoassay test. us Michael Beltre MD CHEMISTRY ORDERABLES Mita lina Result [facility] [address] [facility] , [place] [address] * CT ANGIOGRAM PULMONARY W CONTRAST (05/29/2025 [...] Isovue 370 IV contrast as recorded in Rare Pink. 2-D multiplanar reconstructions and 3-D MIP reconstructions [...] W/ REFLEX (05/29/2025 12:48 AM EDT) Pathologist [facility] tp-zBdpwhsbc-[id number] 50(H) <14 ng/L 05/29/2025 1:13 AM EDT [facility] Blood VENOUS BLOOD / Unknown Venipuncture / Unknown 05/29/2025 12:48 AM EDT 05/29/2025 12:48 AM EDT Narrative [facility] - 05/29/2025 1:13 AM EDT Ingestion of angie doses of biotin (>5 mg/day) taken within 8 hours of drawing blood sample can interfere with this immunoassay test. Michael Beltre MD CHEMISTRY ORDERABLES Mita l Result [facility] [address] [facility] , [place] [address] * (ABNORMAL) HEMOGLOBIN AND HEMATOCRIT (05/29/2025 12:48 AM EDT) Pathologist [facility] Hgb 8.2(L) 11.2 - 15.7 g/dL 05/29/2025 12:53 AM EDT [facility] Hct 25.5(L) 34.0 - 45.0 % 05/29/2025 12:53 AM EDT [facility] Blood VENOUS BLOOD / Unknown Venipuncture / Unknown 05/29/2025 12:48 AM EDT 05/29/2025 12:48 AM EDT us Michael Beltre MD HEMATOLOGY ORDERABLES Fin al Result [facility] 1 [facility], [place] [address] * EK EKG 12 LEAD (05/29/2025 12:28 AM EDT) Anatomical Region Laterality Modality Electrocardiogra phy 05/28/2025 11:3 6 PM EDT Impressions 05/29/2025 7: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1940 Requested By: STEPHEN Earl Order Number: [id number] Reading MD: Shayy Vega DO Measurements Intervals [place] Rate: 108 P: 0 FL: 0 QRS: 12 QRSD: 86 T: 135 [...] - 100 mg/dL 05/29/2025 12:28 AM EDT [facility] Sample Type Capillary 05/29/2025 12:28 AM EDT [facility] Patient Status Non-Critical Patient 05/29/2025 12:28 AM EDT [facility] Blood BLOOD SPECIMEN / Unknown 05/29/2025 12:27 AM EDT 05/29/2025 12:28 AM EDT Stephen Pickard MD POINT OF CARE TEST ORDERABLE S Final Result [facility] [address] [place] [address] * ECG AND WAVEFORMS - TELEMETRY (05/28/2025 8:59 PM EDT) [facility] Signature ECG INTERPRET Atrial Fib [facility] 05/28/2025 8:59 PM EDT Narrative [facility] - 05/28/2025 9:01 PM EDT NEW ADMIT/MS QRS 0.11 See Clinical Report link for waveform capture us Unknown Provider POINT OF CARE CARDIOLOGY Final Result [facility] [address] [place] [address] * (ABNORMAL) GLUCOSE METER POC (05/28/2025 5:37 PM EDT) Glucose Meter POC 121(H) 70 - 100 mg/dL 05/28/2025 5:39 PM EDT [facility] Sample Type Capillary 05/28/2025 5:39 PM EDT [facility] Patient Status Non-Critical Patient 05/28/2025 5:39 PM EDT [facility] Blood BLOOD SPECIMEN / Unknown 05/28/2025 5:37 PM EDT 05/28/2025 5:39 PM EDT us Stephen Pickard MD POINT OF CARE TEST ORDERABLE S Final Result [facility] [address] [place] [address] * (ABNORMAL) HEMOGLOBIN (05/28/2025 2:51 PM EDT) Hgb 7.5(L) 11.2 - 15.7 g/dL 05/28/2025 4:08 PM EDT [facility] [employer] Blood VENOUS BLOOD / Unknown Venipuncture / Unknown 05/28/2025 2:51 PM EDT 05/28/2025 4:00 PM EDT us Stephen Pickard MD HEMATOLOGY ORDERABLES Final Result Performing Organization Address City/[facility]/ZIP Co de Phone Number [facility] 1 [facility], [address] [place] [phone] * (ABNORMAL) GLUCOSE METER POC (05/28/2025 11:11 AM EDT) Glucose Meter POC 123(H) 70 - 100 mg/dL 05/28/2025 11:12 AM EDT [facility] Sample Type Capillary 05/28/2025 11:12 AM EDT [facility] Patient Status Non-Critical Patient 05/28/2025 11:12 AM EDT [facility] Blood BLOOD SPECIMEN / Unknown 05/28/2025 11:11 AM EDT 05/28/2025 11:12 AM EDT us Stephen Pickard MD POINT OF CARE TEST ORDERABLE S Final Result Performing Organization Address City/[facility]/ZIP Co de Phone Number [facility] [address] [phone] * (ABNORMAL) CBC (05/28/2025 5:35 AM EDT) [facility] WBC 5.8 3.7 - 10.3 x10(3)/mcL 05/28/2025 [...] 5:56 AM EDT [facility] MCHC 30.2(L) 30.7 - 35.5 g/dL 05/28/2025 [...] R esult [facility] [address] [facility] , [place] [address] * (ABNORMAL) BASIC METABOLIC PANEL (05/28/2025 5:35 AM EDT) Sodium 138 136 - 145 mmol/L 05/28/2025 6:18 AM EDT [facility] Potassium 3.8 3.5 - 5.0 mmol/L 05/28/2025 6:18 AM EDT [facility] Chloride 109(H) 98 - 107 mmol/L 05/28/2025 6:18 AM EDT [facility] Total CO2 20(L) 22 - 29 mmol/L 05/28/2025 6:18 AM EDT [facility] Anion Gap 9 7 - 16 mmol/L 05/28/2025 6:18 AM EDT [facility] Calcium 8.0(L) 8.8 - 10.4 mg/dL 05/28/2025 6:18 AM EDT [facility] Glucose Lvl 141(H) 70 - 99 mg/dL 05/28/2025 6:18 AM EDT [facility] BUN 19 8 - 23 mg/dL 05/28/2025 6:18 AM EDT [facility] Creatinine 1.00 0.51 - 1.30 mg/dL 05/28/2025 6:18 AM EDT [facility] eGFR (CKD-EPIcr 2020) 55(L) >=60 mL/min/1.7 3 m2 05/28/2025 6:18 AM EDT [facility] Comment:Estimated GFR was ca lculated using the CKD-EPIcr (2020) equation refit without race. The equation is recommended by the [employer] Foundation - [employer] Task Force. Blood VENOUS BLOOD / Unknown Venipuncture / Unknown 05/28/2025 5:35 AM EDT 05/28/2025 5:42 AM EDT us Luis Manuel Mays MD CHEMISTRY ORDERABLES Final Re sult [facility] [address] [facility] , [place] [address] * MAGNESIUM LEVEL (05/28/2025 5:35 AM EDT) Magnesium 2.2 1.6 - 2.4 mg/dL 05/28/2025 6:18 AM EDT [facility] [employer] [facility] Blood VENOUS BLOOD / Unknown Venipuncture / Unknown 05/28/2025 5:35 AM EDT 05/28/2025 5:42 AM EDT us Luis Manuel Mays MD CHEMISTRY ORDERABLES Final Re sult Performing Organization Address [facility] Co de Phone Number [facility] [employer] , [place] [address] * PHOSPHORUS LEVEL (05/28/2025 5:35 AM EDT) Phosphorus 2.5 2.5 - 4.5 mg/dL 05/28/2025 6:18 AM EDT [facility] [employer] [facility] Blood VENOUS BLOOD / Unknown Venipuncture / Unknown 05/28/2025 5:35 AM EDT 05/28/2025 5:42 AM EDT us Luis Maunel Mays MD CHEMISTRY ORDERABLES Final Re sult Performing Organization Address [facility] Co de Phone Number [facility] [employer] , [place] [address] * (ABNORMAL) GLUCOSE METER POC (05/28/2025 5:21 AM EDT) Glucose Meter POC 130(H) 70 - 100 mg/dL 05/28/2025 5:24 AM EDT [facility] Sample Type Capillary 05/28/2025 5:24 AM EDT [facility] Patient Status Non-Critical Patient 05/28/2025 5:24 AM EDT [facility] Blood BLOOD SPECIMEN / Unknown 05/28/2025 5:21 AM EDT 05/28/2025 5:24 AM EDT us Stephen Pickard MD POINT OF CARE TEST ORDERABLE S Final Result Performing Organization Address [facility] Co de Phone Number [facility] [address] [place] [phone] * (ABNORMAL) GLUCOSE METER POC (05/27/2025 11:12 PM EDT) Glucose Meter POC 129(H) 70 - 100 mg/dL 05/27/2025 11:15 PM EDT [facility] Sample Type Capillary 05/27/2025 11:15 PM EDT [facility] Patient Status Non-Critical Patient 05/27/2025 11:15 PM EDT [facility] Blood BLOOD SPECIMEN / Unknown 05/27/2025 11:12 PM EDT 05/27/2025 11:15 PM EDT Stephen Pickard MD POINT OF CARE TEST ORDERABLE S Final Result [facility] [address] [place] [address] * (ABNORMAL) HEMOGLOBIN AND HEMATOCRIT (05/27/2025 6:24 PM EDT) Hgb 7.7(L) 11.2 - 15.7 g/dL 05/27/2025 6:42 PM EDT [facility] Hct 23.6(L) 34.0 - 45.0 % 05/27/2025 6:42 PM EDT [facility] Blood VENOUS BLOOD / Unknown Venipuncture / Unknown 05/27/2025 6:24 PM EDT 05/27/2025 6:35 PM EDT us Reuben Franz APRN HEMATOLOGY ORDERABLES Final Result [facility] [address] [facility] [facility] [address], [place] [address] * (ABNORMAL) GLUCOSE METER POC (05/27/2025 6:02 PM EDT) Glucose Meter POC 155(H) 70 - 100 mg/dL 05/27/2025 6:05 PM EDT [facility] Sample Type Capillary 05/27/2025 6:05 PM EDT [facility] Patient Status Non-Critical Patient 05/27/2025 6:05 PM EDT [facility] Blood BLOOD SPECIMEN / Unknown 05/27/2025 6:02 PM EDT 05/27/2025 6:05 PM EDT us Stephen Pickard MD POINT OF CARE TEST [place] [address] * VANCOMYCIN LEVEL (05/27/2025 12:01 PM EDT) [facility] Random 8.4 mcg/mL 05/27/2025 12:24 PM EDT [facility] Blood VENOUS BLOOD / Unknown Venipuncture / Unknown 05/27/2025 12:01 PM EDT 05/27/2025 12:12 PM EDT us Luis Manuel Mays MD CHEMISTRY ORDERABLES Final Re sult Performing Organization Address [facility]/[place] [address] * (ABNORMAL) GLUCOSE METER POC (05/27/2025 11:25 AM EDT) Glucose Meter POC 181(H) 70 - 100 mg/dL 05/27/2025 11:27 AM EDT [facility] Sample Type Capillary 05/27/2025 11:27 AM EDT [facility] Patient Status Non-Critical Patient 05/27/2025 11:27 AM EDT [facility] Blood BLOOD SPECIMEN / Unknown 05/27/2025 11:25 AM EDT 05/27/2025 11:27 AM EDT us Stephen Pickard MD POINT OF CARE TEST ORDERABLE S Final Result Performing Organization Address City/[facility]/ZIP Co de Phone Number [facility] [address] [place] [id number] * (ABNORMAL) HEMOGLOBIN AND HEMATOCRIT (05/27/2025 9:56 AM EDT) Pathologist [facility] Hgb 8.4(L) 11.2 - 15.7 g/dL 05/27/2025 10:09 AM EDT [facility] Hct 26.3(L) 34.0 - 45.0 % 05/27/2025 10:09 AM EDT [facility] Blood VENOUS BLOOD / Unknown Venipuncture / Unknown 05/27/2025 9:56 AM EDT 05/27/2025 10:06 AM EDT us Reuben Franz ACCOUNTING OFFICE MANAGER HEMATOLOGY ORDERABLES Final Result [facility] [address] [place] [address] * EC ECHOCARDIOGRAM COMPLETE W DOPPLER AND COLOR FLOW MAPPING (05/27/2025 9:27 AM EDT) [facility] LV DIASTOLIC PLAX 4.6 cm PYRAMIS Ejection [...] GLUCOSE METER POC (05/27/2025 5:09 AM EDT) [facility] Glucose Meter POC 139(H) 70 - 100 mg/dL 05/27/2025 5:10 AM EDT [facility] Sample Type Capillary 05/27/2025 5:10 AM EDT [facility] Patient Status Non-Critical Patient 05/27/2025 5:10 AM EDT [facility] Blood BLOOD SPECIMEN / Unknown 05/27/2025 5:09 AM EDT 05/27/2025 5:10 AM EDT Stephen Pickard MD POINT OF CARE TEST ORDERABLE S Final Result [facility] [address] [place] [address] * (ABNORMAL) CBC (05/27/2025 3:25 AM EDT) [facility] WBC 5.1 3.7 - 10.3 x10(3)/mcL 05/27/2025 [...] 3:37 AM EDT [facility] MCHC 32.7 30.7 - 35.5 g/dL 05/27/2025 3:37 AM EDT [facility] RDW 20.0(H) <=14.9 % 05/27/2025 3:37 AM EDT [facility] Platelet 73(L) 155 - 369 x10(3)/mcL 05/27/2025 3:37 AM EDT [facility] MPV 12.2 8.8 - 12.5 fL 05/27/2025 3:37 AM EDT [facility] Blood VENOUS STRUCTURE / Unknown Venipuncture / Unknown 05/27/2025 3:25 AM EDT 05/27/2025 3:29 AM EDT us Luis Manuel Mays MD HEMATOLOGY ORDERABLES Final R esult [facility] [address] [facility] , [place] [address] * (ABNORMAL) BASIC METABOLIC PANEL (05/27/2025 3:25 AM EDT) [facility] Sodium 139 136 - 145 mmol/L 05/27/2025 3:58 AM EDT [facility] Potassium 4.1 3.5 - 5.0 mmol/L 05/27/2025 3:58 AM EDT [facility] Chloride 109(H) 98 - 107 mmol/L 05/27/2025 3:58 AM EDT [facility] Total CO2 20(L) 22 - 29 mmol/L 05/27/2025 3:58 AM EDT [facility] Anion Gap 10 7 - 16 mmol/L 05/27/2025 3:58 AM EDT [facility] Calcium 8.1(L) 8.8 - 10.4 mg/dL 05/27/2025 3:58 AM EDT [facility] Glucose Lvl 157(H) 70 - 99 mg/dL 05/27/2025 3:58 AM EDT [facility] BUN 21 8 - 23 mg/dL 05/27/2025 3:58 AM EDT [facility] Creatinine 0.92 0.51 - 1.30 mg/dL 05/27/2025 3:58 AM EDT [facility] eGFR (CKD-EPIcr 2020) 61 >=60 mL/min/1.7 3 m2 05/27/2025 3:58 AM EDT [facility] Comment:Estimated GFR was ca lculated using the CKD-EPIcr (2020) equation refit without race. The equation is recommended by the National Kid[employer] Foundation - [employer] Nephrology Task Force. Blood VENOUS STRUCTURE / Unknown Venipuncture / Unknown 05/27/2025 3:25 AM EDT 05/27/2025 3:29 AM EDT us Luis Manuel Mays MD CHEMISTRY ORDERABLES Final Re sult Performing Organization Address [facility] de Phone Number [address] , [place] [address] * MAGNESIUM LEVEL (05/27/2025 3:25 AM EDT) Magnesium 2.2 1.6 - 2.4 mg/dL 05/27/2025 3:58 AM EDT [facility] Blood VENOUS STRUCTURE / Unknown Venipuncture / Unknown 05/27/2025 3:25 AM EDT 05/27/2025 3:29 AM EDT us Luis Manuel Mays MD CHEMISTRY ORDERABLES Final Re sult Performing Organization Address City/[facility]/ZIP Co de Phone Number [facility] [address] [facility] , [place] [address] * PHOSPHORUS LEVEL (05/27/2025 3:25 AM EDT) Phosphorus 4.1 2.5 - 4.5 mg/dL 05/27/2025 3:58 AM EDT [facility] Blood VENOUS STRUCTURE / Unknown Venipuncture / Unknown 05/27/2025 3:25 AM EDT 05/27/2025 3:29 AM EDT Luis Manuel Mays MD CHEMISTRY ORDERABLES Final Re sult Performing Organization Address City/[facility]/ZIP Co de Phone Number [employer] [address] , [place] [address] * (ABNORMAL) HEMOGLOBIN AND HEMATOCRIT (05/27/2025 1:15 AM EDT) Pathologist [facility] Hgb 8.1(L) 11.2 - 15.7 g/dL 05/27/2025 1:32 AM EDT [facility] Hct 25.2(L) 34.0 - 45.0 % 05/27/2025 1:32 AM EDT [facility] Blood VENOUS STRUCTURE / Unknown Venipuncture / Unknown 05/27/2025 1:15 AM EDT 05/27/2025 1:26 AM EDT Reuben Franz APRN HEMATOLOGY ORDERABLES Final Result Performing Organization Address [facility] Co de Phone Number [facility] [employer] [address] , [place] [address] * (ABNORMAL) GLUCOSE METER POC (05/26/2025 11:17 PM EDT) [facility] Glucose Meter POC 137(H) 70 - 100 mg/dL 05/26/2025 11:18 PM EDT [facility] Sample Type Capillary 05/26/2025 11:18 PM EDT [facility] Patient Status Non-Critical Patient 05/26/2025 11:18 PM EDT [facility] Blood BLOOD SPECIMEN / Unknown 05/26/2025 11:17 PM EDT 05/26/2025 11:18 PM EDT us Stephen Pickard MD POINT OF CARE TEST ORDERABLE S Final Result [facility] [address] [place] [id number] * CORTISOL 60 MINUTES (05/26/2025 7:36 PM EDT) Cortisol 60 Min 29.60 mcg/dL 8:26 PM EDT [facility] [employer] Blood VENOUS STRUCTURE / Unknown Venipuncture / Unknown 05/26/2025 7:36 PM EDT 05/26/2025 7:43 PM EDT Narrative [facility] - 05/26/2025 8:26 PM EDT Test performed using [employer] Cortisol II assay. Stimulated cortisol reference value not established by this laboratory. us Stephen Pickard MD CHEMISTRY ORDERABLES Final R esult Performing Organization Address [facility] Co de Phone Number [facility] [employer] [address] [facility] , [address] [place] [phone] * CORTISOL 30 MINUTES (05/26/2025 7:05 PM EDT) Cortisol 30 Min 25.20 mcg/dL 8:03 PM EDT [facility] Blood VENOUS BLOOD / Unknown Venipuncture / Unknown 05/26/2025 7:05 PM EDT 05/26/2025 7:19 PM EDT Narrative [facility] - 05/26/2025 8:03 PM EDT Test performed using [employer] Cortisol II assay. Stimulated cortisol reference value not established by this laboratory. us Stephen Pickard MD CHEMISTRY ORDERABLES Final R esult Performing Organization Address City/[facility]/ZIP Co de Phone Number [facility] [address] [facility] , [place] [address] * CORTISOL BASELINE (05/26/2025 6:49 PM EDT) Cortisol Baseline 11.20 mcg/dL 05/26/2025 7:39 PM EDT [facility] [employer] Blood VENOUS BLOOD / Unknown Venipuncture / Unknown 05/26/2025 6:49 PM EDT 05/26/2025 6:49 PM EDT Narrative [facility] [employer] - 05/26/2025 7:39 PM EDT AM: 4.82 [...] Pickard MD CHEMISTRY ORDERABLES Final R esult [facility] [employer] [address] [place] [address], [address] [place] [phone] * (ABNORMAL) HEMOGLOBIN AND HEMATOCRIT (05/26/2025 6:26 PM EDT) Hgb 7.8(L) 11.2 - 15.7 g/dL 05/26/2025 6:43 PM EDT [facility] Hct 24.3(L) 34.0 - 45.0 % 05/26/2025 6:43 PM EDT [facility] Blood VENOUS STRUCTURE / Unknown Venipuncture / Unknown 05/26/2025 6:26 PM EDT 05/26/2025 6:37 PM EDT Reuben Franz APRN HEMATOLOGY ORDERABLES Final Result Performing Organization Address City/[facility]/ZIP Co de Phone Number [place] [phone] * (ABNORMAL) TROPONIN-T HIGH SENSITIVITY 6 HR (05/26/2025 6:26 PM EDT) Pathologist [facility] [id number] 6HR 59(H) <14 ng/L 05/26/2025 6:55 PM EDT [facility] hs-cTnT 6Hr Delta from Baseline -3 <12 ng/L 05/26/2025 6:55 PM EDT [facility] Blood VENOUS STRUCTURE / Unknown Venipuncture / Unknown 05/26/2025 6:26 PM EDT 05/26/2025 6:39 PM EDT Narrative [facility] - 05/26/2025 6:55 PM EDT Ingestion of angie doses of biotin (>5 mg/day) taken within 8 hours of drawing blood sample can interfere with this immunoassay test. us Stephen Pickard MD CHEMISTRY ORDERABLES Final R esult Performing Organization Address City/[facility]/ZIP Co de Phone Number [address] [address] * (ABNORMAL) GLUCOSE METER POC (05/26/2025 6:15 PM EDT) [facility] Glucose Meter POC 118(H) 70 - 100 mg/dL 05/26/2025 6:17 PM EDT [facility] Sample Type Capillary 05/26/2025 6:17 PM EDT [facility] Patient Status Non-Critical Patient 05/26/2025 6:17 PM EDT [facility] Blood BLOOD SPECIMEN / Unknown 05/26/2025 6:15 PM EDT 05/26/2025 6:17 PM EDT us Stephen Pickard MD POINT OF CARE TEST ORDERABLE S Final Result Performing Organization Address City/[facility]/ZIP Co de Phone Number [address] [phone] * XR CHEST AP PORTABLE (05/26/2025 5:39 [...] arm PICC terminates at the lower SVC. Luis Manuel Myas MD IMG DIAGNOSTIC IMAGING ORDERA BLES Final Result * STAPHYLOCOCCUS AUREUS SCREEN (05/26/2025 4:24 PM EDT) Staph aureus PCR Not Detected Not Detected 05/26/2025 6:20 PM EDT [facility] MRSA PCR Not Detected Not Detected 05/26/2025 6:20 PM EDT [facility] Swab BOTH ANTERIOR NARES / Unknown 05/26/2025 4:24 PM EDT 05/26/2025 4:40 PM EDT Narrative [facility] - 05/26/2025 6:20 PM EDT Staphylococcus aureus target DNA sequence is not detected. This qualitative assay is intended for the detection of Staphylococcus aureus proprietary sequences for the staphylococcal protein A (spa) gene, the gene for methicillin resistance (mecA), and the staphylococcal cassette chromosome mec (SCCmec) inserted into the SA chromosomal attB site. This assay utilizes real time PCR on the [employer] GeneXpert Infinity, and its performance has been verified by the [facility]. A negative result does not rule [...] has been developed and validated by the [facility] laboratory. Detailed methodology is available upon request. Luis Manuel Mays MD MICROBIOLOGY - GENERAL ORDERA BLES Final Result Performing Organization Address City/[facility]/ZIP Co de Phone Number [facility] [employer] [address], [place] [address] * RED BLOOD CELLS REQUEST (05/26/2025 4:17 PM EDT) Product Code [id number] [facility] B[facility]OD B[facility] Unit Number [id number] [facility] BLOOD [facility] Crossmatch Interp Compatible [facility] Dispense Status RETURNED [facility] Blood Expiration Date [id number] [facility] ISBT 128 Type [address]200 [facility] BLOOD [facility] Blood Unit Volume 300 ml [facility] BA CODING SYSTEM [id number] [facility] BLOOD [facility] Blood Type (Unit) A POS [facility] 05/26/2025 4:17 PM EDT 05/26/2025 4:21 PM EDT Luis Manuel Mays MD BLOOD PRODUCT ORDERS Final Re sult Performing Organization Address [facility]/ZIP Co de Phone Number [facility] BLOOD [address] [address] * IONIZED CALCIUM - INPATIENT (05/26/2025 4:17 PM EDT) Calcium Ionized 1.13 1.12 - 1.32 mmol/L 05/26/2025 4:29 PM EDT [facility] [employer] Blood VENOUS BLOOD / Unknown Venipuncture / Unknown 05/26/2025 4:17 PM EDT 05/26/2025 4:25 PM EDT us Luis Manuel Mays MD CHEMISTRY ORDERABLES Final Re sult [facility] [address] [facility], [place] [address] * BB HISTORY CHECK (05/26/2025 4:17 PM EDT) Pathologist [facility] BB HISTORY CHECK (1) Previous History OK 05/26/2025 11:40 PM EDT [facility]ANK Blood VENOUS BLOOD / Unknown Venipuncture / Unknown 05/26/2025 4:17 PM EDT 05/26/2025 4:21 PM EDT us Luis Manuel Mays MD BLOOD BANK ORDERABLES Final R esult Performing Organization Address [facility] Co de Phone Number [facility] BLOOD [address] [address] * ANTIBODY SCREEN IGG (05/26/2025 4:17 PM EDT) ABSC IgG Int Negative 05/26/2025 11:40 PM EDT [facility] B[facility] Blood VENOUS BLOOD / Unknown Venipuncture / Unknown 05/26/2025 4:17 PM EDT 05/26/2025 4:21 PM EDT us Luis Manuel Mays MD BLOOD BANK ORDERABLES Final R esult Performing Organization Address City/[facility]/ZIP Co de Phone Number [facility] BLOOD BANK [address] [place], [place] [id number] * ABORH (05/26/2025 4:17 PM EDT) ABORH Int A POS 05/26/2025 11:40 PM EDT [facility] Blood VENOUS BLOOD / Unknown Venipuncture / Unknown 05/26/2025 4:17 PM EDT 05/26/2025 4:21 PM EDT us Luis Manuel Mays MD BLOOD BANK ORDERABLES Final R esult Performing Organization Address City/[facility]/ZIP Co de Phone Number [facility] [address] [place] [address] * POTASSIUM WHOLE BLOOD (05/26/2025 4:17 PM EDT) K-WB 4.6 3.5 - 5.0 mEq/L 05/26/2025 4:29 PM EDT [facility] Blood VENOUS BLOOD / Unknown Venipuncture / Unknown 05/26/2025 4:17 PM EDT 05/26/2025 4:25 PM EDT us Luis Manuel Mays MD CHEMISTRY ORDERABLES Final Re sult Performing Organization Address [facility] Co de Phone Number [facility] [address] [place] [address] , [place] [address] * FIBRINOGEN (05/26/2025 4:17 PM EDT) Pathologist [facility] [employer] 312 196 - 444 mg/dL 05/26/2025 4:38 PM EDT [facility] Blood VENOUS BLOOD / Unknown Venipuncture / Unknown 05/26/2025 4:17 PM EDT 05/26/2025 4:21 PM EDT Stephen Pickard MD HEMATOLOGY ORDERABLES Final Result Performing Organization Address City/[facility]/ZIP Co de Phone Number [facility] [address] [place] [address] , [place] [address] * (ABNORMAL) PT / INR (05/26/2025 4:17 PM EDT) Pathologist [facility] PT 16.0(H) 10.5 - 13.6 second(s) 05/26/2025 4:38 PM EDT [facility] [employer] [facility] INR 1.38(H) 0.91 - 1.18 (ratio) 05/26/2025 4:38 PM EDT [facility] [employer] [facility] Comment: Level of Therapy Indications Target INR Range Standard Dose Treatment and prophylaxis of venous 2.0 - 3.0 thrombosis, pulmonary embolism High Dose High risk patients with mechanical 2.5 - 3.5 heart valves Blood VENOUS BLOOD / Unknown Venipuncture / Unknown 05/26/2025 4:17 PM EDT 05/26/2025 4:21 PM EDT us Stephen Pickard MD HEMATOLOGY ORDERABLES Final Result Performing Organization Address [facility] Co de Phone Number [facility] [employer] [address] , [place] [address] * (ABNORMAL) HEMOGLOBIN (05/26/2025 4:17 PM EDT) Hgb 8.4(L) 11.2 - 15.7 g/dL 05/26/2025 4:32 PM EDT [facility] [employer] [facility] Blood VENOUS BLOOD / Unknown Venipuncture / Unknown 05/26/2025 4:17 PM EDT 05/26/2025 4:21 PM EDT us Stephen Pickard MD HEMATOLOGY ORDERABLES Final Result Performing Organization Address [facility] de Phone Number [facility] , [place] [address] * (ABNORMAL) ADRENOCORTICOTROPIC HORMONE -REF LAB (05/26/2025 3:20 PM EDT) ACTH 3.3(L) 7.2 - 63.3 pg/mL 05/28/2025 7:58 PM EDT [employer] Comment: INTERPRETIVE INFORMATION: Adrenocorticotropic Hormone Reference interval based on samples collected between 7 a.m. and 10 a.m. No reference intervals established for p.m. collections. Pediatric reference values are the same as adults (Acta Paediatr Scand 1981;70:341-345). This assay measures intact ACTH 1-39; some types of synthetic ACTH and ACTH fragments are not detected by this assay. Performed By: [facility] [address] [place] [address] Range Manager: Gigi Cheney MD, PhD CLIA Number: [id number] Blood VENOUS BLOOD / Unknown Venipuncture / Unknown 05/26/2025 3:20 PM EDT 05/26/2025 3:23 PM EDT us Stephen Pickard MD CHEMISTRY ORDERABLES Final R esult Performing Organization Address [facility] de Phone Number [employer] [address] [place] [address] * (ABNORMAL) HEPATIC FUNCTION PANEL (05/26/2025 2:11 [...] ORDERABLES Final Re sult Performing Organization Address City/[facility]/ZIP Co de Phone Number [facility] [employer] [facility] [address] [facility] , [address] [phone] * CORTISOL (05/26/2025 2:11 PM EDT) Pathologist [facility] Cortisol 7.55 mcg/dL 05/26/2025 2:5 1 PM EDT [facility] Blood VENOUS BLOOD / Unknown Venipuncture / Unknown 05/26/2025 2:11 PM EDT 05/26/2025 2:15 PM EDT Narrative [facility] [employer] - 05/26/2025 2:51 PM EDT AM: 4.82 [...] ORDERABLES Final R esult Performing Organization Address [facility] Phone Number [facility] [employer] [address] , [place] [address] * (ABNORMAL) HEMOGLOBIN (05/26/2025 2:11 PM EDT) [facility] Hgb 7.0(L) 11.2 - 15.7 g/dL 05/26/2025 2:21 PM EDT [facility] [employer] Blood VENOUS BLOOD / Unknown Venipuncture / Unknown 05/26/2025 2:11 PM EDT 05/26/2025 2:15 PM EDT us Stephen Pickard MD HEMATOLOGY ORDERABLES Final Result Performing Organization Address [facility] de Phone Number [facility] [employer] [facility] [address] , [place] [address] * (ABNORMAL) TROPONIN-T HIGH SENSITIVITY 2HR (05/26/2025 2:11 PM EDT) Pathologist [facility] [id number] 2HR 70(H) <14 ng/L 05/26/2025 2:52 PM EDT [facility] hs-cTnT 2Hr Delta from Baseline 8(H) <4 ng/L 05/26/2025 2:52 PM EDT [facility] Blood VENOUS BLOOD / Unknown Venipuncture / Unknown 05/26/2025 2:11 PM EDT 05/26/2025 2:15 PM EDT Narrative [facility] - 05/26/2025 2:52 PM EDT Ingestion of angie doses of biotin (>5 mg/day) taken within 8 hours of drawing blood sample can interfere with this immunoassay test. us Stephen Pickard MD CHEMISTRY ORDERABLES Final R esult [facility] [address] , [place] [address] * (ABNORMAL) BLOOD GAS ARTERIAL (05/26/2025 1:01 PM EDT) [facility] pH 7.41 7.35 - 7.45 pH 05/26/2025 1:14 PM EDT [facility] pCO2 32(L) 35 - 45 mmHg 05/26/2025 1:14 PM EDT [facility] pO2 75(L) 80 - 100 mmHg 05/26/2025 1:14 PM EDT [facility] HCO3 19.6(L) 22.0 - 26.0 mmol/L 05/26/2025 1:14 PM EDT [facility] TCO2 19(L) 22 - 29 mmol/L 05/26/2025 1:14 PM EDT [facility] Base Excess -4.1(L) -2.0 - 3.0 mmol/L 05/26/2025 1:14 PM EDT [facility] O2 Sat 95.9 95.0 - 98.0 % 05/26/2025 1:14 PM EDT [facility] [employer] O2 2L 05/26/2025 1:14 PM EDT [facility] Blood ARTERIAL BLOOD / Unknown Arterial / Unknown 05/26/2025 1:01 PM EDT 05/26/2025 1:12 PM EDT Stephen Pickard MD CHEMISTRY ORDERABLES Final R esult Performing Organization Address City/[facility] Co de Phone Number [facility] [address] [facility] , [place] [address] * PROCALCITONIN (05/26/2025 1:00 PM EDT) Procalcitonin 0.08 <=0.49 ng/mL 05/26/2025 1:55 PM EDT [facility] Blood VENOUS BLOOD / Unknown Venipuncture / Unknown 05/26/2025 1:00 PM EDT 05/26/2025 1:18 PM EDT Narrative [facility] - 05/26/2025 1:55 PM EDT Procalcitonin <0.50 [...] progression to severe sepsis and/or septic shock. us Stephen Pickard MD CHEMISTRY ORDERABLES Final R esult Performing Organization Address City/[facility] Co de Phone Number [facility] [address] [facility], [place] [address] * LACTIC ACID (05/26/2025 1:00 PM EDT) Pathologist [facility] Lactic Acid 1.5 0.5 - 1.9 mmol/L 05/26/2025 1:30 PM EDT [facility] Blood VENOUS BLOOD / Unknown Venipuncture / Unknown 05/26/2025 1:00 PM EDT 05/26/2025 1:16 PM EDT us Stephen Pickard MD CHEMISTRY ORDERABLES Final R esult [facility] [address] [place] [address] * (ABNORMAL) BASIC METABOLIC PANEL (05/26/2025 1:00 PM EDT) [facility] Sodium 136 136 - 145 mmol/L 05/26/2025 1:33 PM EDT [facility] Potassium 5.3(H) 3.5 - 5.0 mmol/L 05/26/2025 1:33 PM EDT [facility] Comment:Hemolysis detected b y analyzer. Hemolysis at this level may increase the potassium concentration > 0.1 mmol/L. Recommend recollection if clinically indicated. Chloride 108(H) 98 - 107 mmol/L 05/26/2025 1:33 PM EDT [facility] Total CO2 19(L) 22 - 29 mmol/L 05/26/2025 1:33 PM EDT [facility] Anion Gap 9 7 - 16 mmol/L 05/26/2025 1:33 PM EDT [facility] Calcium 7.7(L) 8.8 - 10.4 mg/dL 05/26/2025 1:33 PM EDT [facility] Glucose Lvl 129(H) 70 - 99 mg/dL 05/26/2025 1:33 PM EDT [facility] BUN 22 8 - 23 mg/dL 05/26/2025 1:33 PM EDT [facility] Creatinine 0.94 0.51 - 1.30 mg/dL 05/26/2025 1:33 PM EDT [facility] eGFR (CKD-EPIcr 2020) 59(L) >=60 mL/min/1. 73 m2 05/26/2025 1:33 PM EDT [facility] Comment:Estimated GFR was ca lculated using the CKD-EPIcr (2020) equation refit without race. The equation is recommended by the National Kidney Foundation - [employer] of Nephrology Task Force. Blood VENOUS BLOOD / Unknown Venipuncture / Unknown 05/26/2025 1:00 PM EDT 05/26/2025 1:16 PM EDT us Stephen Pickard MD CHEMISTRY ORDERABLES Final R esult [facility] [address] [place] [id number] * (ABNORMAL) CBC (05/26/2025 1:00 PM EDT) [...] % 05/26/2025 1:34 PM EDT [facility] Platelet 65(L) 155 - 369 x10(3)/mcL 05/26/2025 1:34 PM EDT [facility] MPV 13.6(H) 8.8 - 12.5 fL 05/26/2025 1:34 PM EDT [facility] Blood VENOUS BLOOD / Unknown Venipuncture / Unknown 05/26/2025 1:00 PM EDT 05/26/2025 1:16 PM EDT Stephen Pickard MD HEMATOLOGY ORDERABLES Final Result [facility] [address] [facility], [place] [address] * (ABNORMAL) TROPONIN-T HIGH SENSITIVITY BASELINE W/ REFLEX (05/26/2025 1:00 PM EDT) [facility] qs-lLsckxfqi-Q 62(H) <14 ng/L 05/26/2025 1:37 PM EDT [facility] Blood VENOUS BLOOD / Unknown Venipuncture / Unknown 05/26/2025 1:00 PM EDT 05/26/2025 1:16 PM EDT Narrative [facility] - 05/26/2025 1:37 PM EDT Ingestion of angie doses of biotin (>5 mg/day) taken within 8 hours of drawing blood sample can interfere with this immunoassay test. Stephen Pickard MD CHEMISTRY ORDERABLES Final R esult [facility] [address] [place] [address] * (ABNORMAL) GLUCOSE METER POC (05/26/2025 12:37 PM EDT) Glucose Meter POC 129(H) 70 - 100 mg/dL 05/26/2025 12:38 PM EDT [facility] Sample Type Capillary 05/26/2025 12:38 PM EDT [facility] Patient Status Non-Critical Patient 05/26/2025 12:38 PM EDT [facility] Blood BLOOD SPECIMEN / Unknown 05/26/2025 12:37 PM EDT 05/26/2025 12:38 PM EDT us Stephen Pickard MD POINT OF CARE TEST ORDERABLE S Final Result [facility] [address] [place] [address] * EK EKG 12 LEAD (05/26/2025 12:27 PM EDT) Anatomical Region Laterality Modality Electrocardiogra phy 05/26/2025 12:4 2 PM EDT Impressions 05/27/2025 7:[address] 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 Co de Phone Number [facility] [employer] [facility] [address] [place] [address] , [place] [address] * BLOOD CULTURE (NO STAIN) (05/26/2025 11:58 AM EDT) Culture Result No Growth at 120 hours. BLOOD CULTURE (NO STAIN) 05/31/2025 1:00 PM EDT [facility] [employer] [facility] Blood VENOUS BLOOD / Unknown Venipuncture / Unknown 05/26/2025 11:58 AM EDT 05/26/2025 12:02 PM EDT us Stephen Pickard MD MICROBIOLOGY - GENERAL ORDER CELESTE Final Result Performing Organization Address City/[facility]/ZIP Co de Phone Number [facility] [employer] [address] [facility] , [place] [address] * (ABNORMAL) URINE CULTURE (NO STAIN) (05/26/2025 11:16 AM EDT) Culture Positive Growth(A) 05/27/2025 1:42 PM EDT [facility] Culture 3,000 CFU/mL Proteus mirabilis SUSCEPTIB ILITY RESULT 05/27/2025 1:42 PM EDT [facility] Comment:refer to bell guerra on urine culture collected - 05/23/2025 1531 Urine URINARY BLADDER STRUCTURE / Unknown 05/26/2025 11:16 AM EDT 05/26/2025 11:38 AM EDT Stephen Pickard MD MICROBIOLOGY - GENERAL ORDER CELESTE Final Result Performing Organization Address [facility]/ZIP Co de Phone Number [facility] [address] [facility], [place] [address] * EXTRA HUITRON URINE CX (05/26/2025 11:16 AM EDT) Urine URINARY BLADDER STRUCTURE / Unknown 05/26/2025 11:16 AM EDT 05/26/2025 11:32 AM EDT Stephen Pickard MD MICROBIOLOGY - GENERAL ORDER CELESTE Final Result Performing Organization Address [facility] [place] [address] * (ABNORMAL) URINALYSIS REFLEX (05/26/2025 11:16 AM [...] 05/26/2025 11:38 AM EDT [facility] UA Leuk Est 1+ (25 Ion/mcl)(A) Negative 05/26/2025 11:38 AM EDT [facility] UA Spec Grav 1.017 1.001 - 1.035 no units 05/26/2025 11:38 AM EDT [facility] Comment:Reference range helga d for random specimens only. UA WBC 5(H) 0 - 4 /HPF 05/26/2025 11:38 AM EDT [facility] UA RBC 1 0 - 3 /HPF 05/26/2025 11:38 AM EDT [facility] UA Squam Epi 2+ /LPF 05/26/2025 11:38 AM EDT [facility] UA Mucus Trace /LPF 05/26/2025 11:38 AM EDT [facility] UA Bacteria Trace(A) Negative /HPF 05/26/2025 11:38 AM EDT [facility] Urine URINARY BLADDER STRUCTURE / Unknown 05/26/2025 11:16 AM EDT 05/26/2025 11:32 AM EDT us Stephen Pickard MD URINE ORDERABLES Final Resul t [facility] [address] [facility] , [place] [address] * XR CHEST AP PORTABLE (05/26/2025 11:04 [...] - TELEMETRY (05/26/2025 7:53 AM EDT) Pathologist [facility] ECG INTERPRET Sinus Arrythmia [facility] 05/26/2025 7:53 AM EDT Narrative [facility] - 05/26/2025 10:34 AM EDT ROUTINE -HB QRS 0.11 See Clinical Report link for waveform capture us Unknown Provider POINT OF CARE CARDIOLOGY Final Result [facility] [address] [place] [address] * (ABNORMAL) RENAL FUNCTION PANEL (05/26/2025 6:15 AM EDT) Sodium 135(L) 136 - 145 mmol/L 05/26/2025 7:27 AM EDT [facility] Potassium 4.6 3.5 - 5.0 mmol/L 05/26/2025 7:27 AM EDT [facility] Chloride 108(H) 98 - 107 mmol/L 05/26/2025 7:27 AM EDT [facility] Total CO2 19(L) 22 - 29 mmol/L 05/26/2025 7:27 AM EDT [facility] Anion Gap 8 7 - 16 mmol/L 05/26/2025 7:27 AM EDT [facility] Calcium 8.0(L) 8.8 - 10.4 mg/dL 05/26/2025 7:27 AM EDT [facility] Glucose Lvl 120(H) 70 - 99 mg/dL 05/26/2025 7:27 AM EDT [facility] BUN 20 8 - 23 mg/dL 05/26/2025 7:27 AM EDT [facility] Creatinine 0.94 0.51 - 1.30 mg/dL 05/26/2025 7:27 AM EDT [facility] Albumin 3.1(L) 3.2 - 4.6 gm/dL 05/26/2025 7:27 AM EDT [facility] Phosphorus 1.9(L) 2.5 - 4.5 mg/dL 05/26/2025 7:27 AM EDT [facility] eGFR (CKD-EPIcr 2020) 59(L) >=60 mL/min/1.7 3 m2 05/26/2025 7:27 AM EDT [facility] Comment:Estimated GFR was ca lculated using the CKD-EPIcr (2020) equation refit without race. The equation is recommended by the National Kidney Foundation - [place] Society of Nephrology Task Force. Blood VENOUS BLOOD / Unknown Venipuncture / Unknown 05/26/2025 6:15 AM EDT 05/26/2025 6:53 AM EDT us Stephen Pickard MD CHEMISTRY ORDERABLES Final R esult [facility] [address] [facility] , [place] [address] * (ABNORMAL) CBC (05/26/2025 6:15 AM EDT) WBC 5.6 3.7 - 10.3 x10(3)/mcL 05/26/2025 7:05 AM EDT [facility] RBC 2.39(L) 3.90 - 5.20 x10(6)/mcL 05/26/2025 7:05 AM EDT [facility] Hgb 8.3(L) 11.2 - 15.7 g/dL 05/26/2025 7:05 AM EDT [facility] Hct 25.7(L) 34.0 - 45.0 % 05/26/2025 7:05 AM EDT [facility] MCV 107.5(H) 80.0 - 100.0 fL 05/26/2025 7:05 AM EDT [facility] MCH 34.7(H) 26.0 - 34.0 pg 05/26/2025 7:05 AM EDT [facility] MCHC 32.3 30.7 - 35.5 g/dL 05/26/2025 7:05 AM EDT [facility] RDW 21.1(H) <=14.9 % 05/26/2025 7:05 AM EDT [facility] Platelet 71(L) 155 - 369 x10(3)/mcL 05/26/2025 7:05 AM EDT [facility] MPV 12.8(H) 8.8 - 12.5 fL 05/26/2025 7:05 AM EDT [facility] Blood VENOUS BLOOD / Unknown Venipuncture / Unknown 05/26/2025 6:15 AM EDT 05/26/2025 6:53 AM EDT us Stephen Pickard MD HEMATOLOGY ORDERABLES Final Result [facility] [address] [facility] , [place] [address] * ECG AND WAVEFORMS - TELEMETRY (05/25/2025 7:00 PM EDT) ECG INTERPRET Atrial Fib [facility] 05/25/2025 7:00 PM EDT Narrative [facility] - 05/25/2025 8:57 PM EDT ROUTINE/GGG QRS 0.05 See Clinical Report link for waveform capture us Unknown Provider POINT OF CARE CARDIOLOGY Final Result Performing Organization Address City/[facility]/ZIP Co de Phone Number [facility] [address] [place] [address] * ECG AND WAVEFORMS - TELEMETRY (05/25/2025 7:57 AM EDT) [facility] ECG INTERPRET Sinus Arrythmia [facility] 05/25/2025 7:57 AM EDT Narrative [facility] - 05/25/2025 9:16 AM EDT ROUTINE -HB QRS 0.08 See Clinical Report link for waveform capture us Unknown Provider POINT OF CARE CARDIOLOGY Final Result Performing Organization Address [facility] Co de Phone Number [facility] [address] [place] [address] * (ABNORMAL) CBC (05/25/2025 6:50 AM EDT) [facility] WBC 6.0 3.7 - 10.3 x10(3)/mcL 05/25/2025 [...] HEMATOLOGY ORDERABLES Final Result [facility] [address] [facility] , [address] [place] [phone] * (ABNORMAL) BASIC METABOLIC PANEL (05/25/2025 6:50 [...] mL/min/1.7 3 m2 05/25/2025 7:47 AM EDT [facility] Comment:Estimated GFR was ca lculated using the CKD-EPIcr (2020) equation refit without race. The equation is recommended by the National Kidney Foundation - [place] Society of Nephrology Task Force. Blood VENOUS BLOOD / Unknown Venipuncture / Unknown 05/25/2025 6:50 AM EDT 05/25/2025 7:10 AM EDT us Stephen Pickard MD CHEMISTRY ORDERABLES Final R esult [facility] [address] [facility], [place] [address] * ECG AND WAVEFORMS - TELEMETRY (05/24/2025 7:00 PM EDT) Pathologist [facility] ECG INTERPRET Atrial Fib [facility] 05/24/2025 7:00 PM EDT Narrative [facility] - 05/24/2025 7:43 PM EDT ROUTINE/MS QRS 0.10 See Clinical Report link for waveform capture us Unknown Provider POINT OF CARE CARDIOLOGY Final Result Performing Organization Address City/[facility]/ZIP Co de Phone Number [facility] [address] [place] [address] * (ABNORMAL) CBC (05/24/2025 1:55 PM EDT) WBC 3.8 3.7 - 10.3 x10(3)/mcL 05/24/2025 2:11 PM EDT [facility] RBC 2.83(L) 3.90 - 5.20 x10(6)/mcL 05/24/2025 2:11 PM EDT [facility] Hgb 9.9(L) 11.2 - 15.7 g/dL 05/24/2025 2:11 PM EDT [facility] [employer] Hct 30.0(L) 34.0 - 45.0 % 05/24/2025 2:11 PM EDT [facility] [employer] [facility] MCV 106.0(H) 80.0 - 100.0 fL 05/24/2025 2:11 PM EDT [facility] MCH 35.0(H) 26.0 - 34.0 pg 05/24/2025 2:11 PM EDT [facility] MCHC 33.0 30.7 - 35.5 g/dL 05/24/2025 2:11 PM EDT [facility] RDW 21.9(H) <=14.9 % 05/24/2025 2:11 PM EDT [facility] Platelet 64(L) 155 - 369 x10(3)/mcL 05/24/2025 2:11 PM EDT [facility] MPV 12.1 8.8 - 12.5 fL 05/24/2025 2:11 PM EDT [facility] Blood VENOUS BLOOD / Unknown Venipuncture / Unknown 05/24/2025 1:55 PM EDT 05/24/2025 2:01 PM EDT us Lawrence Wolf MD HEMATOLOGY ORDERABLES Final Result [facility] [address] [facility], [place] [address] * (ABNORMAL) GLUCOSE METER POC (05/24/2025 11:39 AM EDT) [facility] Glucose Meter POC 144(H) 70 - 100 mg/dL 05/24/2025 11:41 AM EDT [facility] Sample Type Capillary 05/24/2025 11:41 AM EDT [facility] Patient Status Non-Critical Patient 05/24/2025 11:41 AM EDT [facility] Blood BLOOD SPECIMEN / Unknown 05/24/2025 11:39 AM EDT 05/24/2025 11:41 AM EDT us Stephen Pickard MD POINT OF CARE TEST ORDERABLE S Final Result Performing Organization Address City/[facility]/ZIP Co de Phone Number [facility] [address] [place] [address] * TRANSFUSE RED BLOOD CELLS (05/24/2025 10:43 AM EDT) Result Isabel erazo Lawrence Wolf MD NURSING TREATMENT ORDERABLE S - BLOOD ADMIN Edited Result - Final * TRANSFUSE RED BLOOD CELLS (05/24/2025 10:43 AM EDT) Lawrence Wolf MD NURSING TREATMENT ORDERABLE S - BLOOD ADMIN Edited Result - Final * TRANSFUSE RED BLOOD CELLS (05/24/2025 9:46 AM EDT) Result Isabel erazo Lawrence Wolf MD NURSING TREATMENT ORDERABLE S - BLOOD ADMIN Edited Result - Final * TRANSFUSE RED BLOOD CELLS (05/24/2025 9:46 AM EDT) Result Isabel erazo Lawrence Wolf MD NURSING TREATMENT ORDERABLE S - BLOOD ADMIN Edited Result - Final * PATHOLOGY TISSUE REQUEST (05/24/2025 8:41 AM EDT) CASE REPORT Surgical Pathology Case: [id number] Authorizing Provider: Lawrence Wolf MD Collected: 05/24/2025 0841 Ordering Location: ED SURGERY Received: 05/24/2025 1101 Pathologist: Addie Barakat MD Specimen: Leg, Left, Left Leg and knee 05/29/2025 3:42 PM EDT [facility] FINAL DIAGNOSIS Left leg and knee, [id number] amputation: - Ulcer and soft tissue necrosis at previous amputation site. - Atherosclerosis. - Focal areas of necrosis and acute inflammation consistent with acute osteomyelitis. - Skin and soft tissue margins are viable. - Bone margin is negative for acute osteomyelitis. 05/29/2025 3:42 PM EDT [facility] at 1542 EDT GROSS DESCRIPTION [...] soft tissue margins; Green - femoral vessels; Tillman - anterior tibial vessels; Black - posterior [...] diffusely calcified and up to 95% stenotic. Director [employer] sections are submitted as follows: A1: Bone marrow from margin, in a biopsy bag and following Decal Stat A2: Skin and soft tissue margin, perpendicularly sectioned A3: Lesion to underlying bone, following Decal Stat A4: Mid cross sections of vessels with stenotic and calcified areas, following Decal Stat Kesha Cerda MS, ABIGAIL ([facility]) 05/27/2025 05/29/2025 3:42 PM EDT [facility] MICROSCOPIC DESCRIPTION The microscopic examination may have been rendered in whole, or in part, by analyzing high-resolution digital images (whole slide images) on the [employer] Digital Pathology platform validated at [facility]. 05/29/2025 3:42 PM EDT [facility] EMBEDDED IMAGES 05/29/2025 3:42 PM EDT [facility] Tissue STRUCTURE OF LEFT LOWER LEG / Unknown 05/24/2025 8:41 AM EDT 05/24/2025 11:01 AM EDT us Lawrence Wolf MD PATHOLOGY ORDERABLES Final Result [facility] [address] [place] [address] [facility] [address] [place] [address] * US ANES GUIDANCE FOR NERVE BLOCK [...] 7:05 AM EDT) ECG INTERPRET Atrial Fib [facility] 05/24/2025 7:05 AM EDT Narrative [facility] - 05/24/2025 7:52 AM EDT PVCS-ROUTINE/PB QRS 0.09 See Clinical Report link for waveform capture us Unknown Provider POINT OF CARE CARDIOLOGY Final Result Performing Organization Address [facility] Co de Phone Number [facility] [address] [place], [place] [id number] * (ABNORMAL) GLUCOSE METER POC (05/24/2025 6:32 AM EDT) Glucose Meter POC 104(H) 70 - 100 mg/dL 05/24/2025 6:34 AM EDT [facility] Sample Type Capillary 05/24/2025 6:34 AM EDT [facility] Patient Status Non-Critical Patient 05/24/2025 6:34 AM EDT [facility] Blood BLOOD SPECIMEN / Unknown 05/24/2025 6:32 AM EDT 05/24/2025 6:34 AM EDT Stephen Pickard MD POINT OF CARE TEST ORDERABLE S Final Result Performing Organization Address City/[facility]/ZIP Co de Phone Number [facility] [address] [place] [phone] * ECG AND WAVEFORMS - TELEMETRY (05/23/2025 7:24 PM EDT) ECG INTERPRET Atrial Fib [facility] 05/23/2025 7:24 PM EDT Narrative [facility] - 05/23/2025 7:31 PM EDT (AM) ROUTINE QRS 0.12 See Clinical Report link for waveform capture us Unknown Provider POINT OF CARE CARDIOLOGY Final Result [facility] [address] [place], [place] [id number] * (ABNORMAL) URINE CULTURE (NO STAIN) (05/23/2025 3:31 PM EDT) Culture Positive Growth(A) 05/26/2025 9:43 AM EDT [facility] Culture >100,000 CFU/mL Proteus mirabilis SUSCEPTIB ILITY RESULT 05/26/2025 9:43 AM EDT [facility] Comment: Confirmed positive for ESBL (extended spectrum Beta lactamase) production. If isolate susceptible and patient is clinically stable, sulfamethoxazole-trimethoprim is the drug of choice. Fluoroquinolones may also be considered. Nitrofurantoin may be associated with increased risk of treatment failure. Culture 50,000 CFU/mL Escherichia coli SUSCEPTIB ILITY RESULT 05/26/2025 9:43 AM EDT [facility] Urine STRUCTURE OF URINARY TRACT PROPER / [...] ORDER CELESTE Final Result Performing Organization Address [facility] Co de Phone Number [facility], [address], [place] [address] * EXTRA HUITRON URINE CX (05/23/2025 3:31 PM EDT) Urine STRUCTURE OF URINARY TRACT PROPER / Unknown 05/23/2025 3:31 PM EDT 05/23/2025 3:36 PM EDT Stephen Pickard MD MICROBIOLOGY - GENERAL ORDER CELESTE Final Result Performing Organization Address [facility] [place] [address] * (ABNORMAL) URINALYSIS REFLEX (05/23/2025 3:31 PM [...] 05/23/2025 3:41 PM EDT [facility] UA Urobilinogen Normal <=1 mg/dL 3:41 PM EDT [facility] UA Bili Negative Negative 05/23/2025 3:41 PM EDT [facility] UA Nitrite Positive(A) Negative 05/23/2025 3:41 PM EDT [facility] UA Leuk Est 4+ (500 Ion/mcl)(A) Negative 05/23/2025 3:41 PM EDT [facility] UA Spec Grav 1.018 1.001 - 1.035 no units 05/23/2025 3:41 PM EDT [facility] Comment:Reference range helga d for random specimens only. UA WBC >182(H) 0 - 4 /HPF 05/23/2025 3:41 PM EDT [facility] UA RBC 22(H) 0 - 3 /HPF 05/23/2025 3:41 PM EDT [facility] UA Mucus Trace /LPF 05/23/2025 3:41 PM EDT [facility] UA Bacteria Trace(A) Negative /HPF 05/23/2025 3:41 PM EDT [facility] Urine STRUCTURE OF URINARY TRACT PROPER / Unknown 05/23/2025 3:31 PM EDT 05/23/2025 3:36 PM EDT us Stephen Pickard MD URINE ORDERABLES Final Resul t [facility] [address] [facility] , [place] [address] * RED BLOOD CELLS REQUEST (05/23/2025 10:33 AM EDT) Product Code [id number] [facility] BLOOD BANK Unit Number [id number] [facility] BLOOD [facility] Crossmatch Interp Compatible [facility] BLOOD BANK Dispense Status RETURNED [facility] Blood Expiration Date [id number] [facility] BLOOD BANK ISBT 128 Type 6200 [facility] BLOOD BANK Blood Unit Volume 300 ml [facility] BLOOD BANK BA CODING SYSTEM [id number] [facility] BLOOD BANK Blood Type (Unit) A POS [facility] BLOOD BANK Blood 05/23/2025 10:3 3 AM EDT 05/23/2025 10:37 AM EDT us Luis Manuel Mays MD BLOOD PRODUCT ORDERS Final Re sult Performing Organization Address City/[facility]/ZIP Co de Phone Number [facility] [place] [address] * RED BLOOD CELLS REQUEST (05/23/2025 10:33 AM EDT) Product Code [id number] [facility] BLOOD BANK Unit Number [id number] [facility] BLOOD BANK Crossmatch Interp Compatible [facility] BLOOD BANK Dispense Status TRANSFUSED [facility] BLOOD [facility] Blood Expiration Date [id number] [facility] BLOOD BANK ISBT 128 Type 6200 [facility] BLOOD BANK Blood Unit Volume 300 ml [facility] BLOOD [facility] BA CODING SYSTEM [id number] [facility] BLOOD [facility] Blood Type (Unit) A POS [facility] BLOOD BANK Blood 05/23/2025 10:3 3 AM EDT 05/23/2025 10:37 AM EDT us Lawrence Wolf MD BLOOD PRODUCT ORDERS Final Result [facility] BLOOD [address] [address] * RED BLOOD CELLS REQUEST (05/23/2025 10:33 AM EDT) Product Code [id number] [facility] BLOOD BANK Unit Number [id number] [facility] BLOOD BANK Crossmatch Interp Compatible [facility] BLOOD BANK Dispense Status TRANSFUSED [facility] BLOOD BANK Blood Expiration Date [id number] [facility] BLOOD [facility] ISBT 128 Type 6200 [facility] BLOOD [facility] Blood Unit Volume 300 ml [facility] BLOOD [facility] BA CODING SYSTEM [id number] [facility] BLOOD [facility] Blood Type (Unit) A POS [facility] BLOOD BANK Blood 05/23/2025 10:3 3 AM EDT 05/23/2025 10:37 AM EDT us Lawrence Wolf MD BLOOD PRODUCT ORDERS Final Result [facility] [place] [address] * BB HISTORY CHECK (05/23/2025 10:33 AM EDT) BB HISTORY CHECK (1) Previous History OK 05/23/2025 10:52 AM EDT [facility] BLOOD BANK Blood VENOUS BLOOD / Unknown Venipuncture / Unknown 05/23/2025 10:33 AM EDT 05/23/2025 10:37 AM EDT Deannpaigesid Sol ACCOUNTING OFFICE MANAGER BLOOD BANK ORDERABLES Final Re sult Performing Organization Address [facility] Co de Phone Number [facility] [place] [address] * ANTIBODY SCREEN IGG (05/23/2025 10:33 AM EDT) ABSC IgG Int Negative 05/23/2025 11:27 AM EDT [facility] BLOOD BANK Blood VENOUS BLOOD / Unknown Venipuncture / Unknown 05/23/2025 10:33 AM EDT 05/23/2025 10:37 AM EDT Sheryl Navarreteg ACCOUNTING OFFICE MANAGER BLOOD BANK ORDERABLES Final Re sult Performing Organization Address City/[facility]/ZIP Co de Phone Number [facility] [place] [address] * ABORH (05/23/2025 10:33 AM EDT) Pathologist [facility] ABORH Int A POS 05/23/2025 10:59 AM EDT [facility] BLOOD BANK Blood VENOUS BLOOD / Unknown Venipuncture / Unknown 05/23/2025 10:33 AM EDT 05/23/2025 10:37 AM EDT Sheryl Horton STEPHANIE BLOOD BANK ORDERABLES Final Re sult [facility] BLOOD BANK [address] [place] [id number] * ECG AND WAVEFORMS - TELEMETRY (05/23/2025 7:30 AM EDT) [facility] ECG INTERPRET Atrial Fib [facility] 05/23/2025 7:30 AM EDT Narrative [facility] - 05/23/2025 7:52 AM EDT (DT)ROUTINE QRS 0.09 See Clinical Report link for waveform capture Unknown Provider POINT OF CARE CARDIOLOGY Final Result [facility] [address] [place] [address] * (ABNORMAL) CBC (05/23/2025 7:03 AM EDT) [facility] WBC 2.9(L) 3.7 - 10.3 x10(3)/mcL 05/23/2025 [...] 05/23/2025 7:37 AM EDT [facility] MCHC 32.8 30.7 - 35.5 g/dL 05/23/2025 7:37 AM EDT [facility] RDW 15.8(H) <=14.9 % 05/23/2025 7:37 AM EDT [facility] Platelet 79(L) 155 - 369 x10(3)/mcL 05/23/2025 7:37 AM EDT [facility] MPV 12.3 8.8 - 12.5 fL 05/23/2025 7:37 AM EDT [facility] Blood VENOUS BLOOD / Unknown Venipuncture / Unknown 05/23/2025 7:03 AM EDT 05/23/2025 7:27 AM EDT us Carlos Manuel Landaverde II, MD HEMATOLOGY ORDERABLES Fin al Result [facility] [address] [facility], [place] [address] * ECG AND WAVEFORMS - TELEMETRY (05/22/2025 7:59 PM EDT) ECG INTERPRET Atrial Flutter [facility] Comment:with PVCs 05/22/2025 7:59 PM EDT Narrative [facility] - 05/22/2025 8:15 PM EDT PVC, (AM) ROUTINE QRS 0.10 See Clinical Report link for waveform capture us Unknown Provider POINT OF CARE CARDIOLOGY Final Result [facility] [address] [place] [address] * ECG AND WAVEFORMS - TELEMETRY (05/22/2025 7:31 AM EDT) ECG INTERPRET Atrial Fib [facility] 05/22/2025 7:31 AM EDT Narrative [facility] - 05/22/2025 9:30 AM EDT (DT)ROUTINE QRS 0.08 See Clinical Report link for waveform capture us Unknown Provider POINT OF CARE CARDIOLOGY Final Result [facility] [address] [place] [address] * FIBRINOGEN (05/22/2025 6:42 AM EDT) Fibrinogen 241 196 - 444 mg/dL 05/22/2025 7:27 AM EDT [facility] Blood VENOUS BLOOD / Unknown Venipuncture / Unknown 05/22/2025 6:42 AM EDT 05/22/2025 6:58 AM EDT Stephen Pickard MD HEMATOLOGY ORDERABLES Final Result Performing Organization Address [facility] Co de Phone Number [facility] [address] [place] [address] , [place] [address] * (ABNORMAL) PT / INR (05/22/2025 6:42 AM EDT) PT 15.7(H) 10.5 - 13.6 second(s) 05/22/2025 7:27 AM EDT [facility] INR 1.36(H) 0.91 - 1.18 (ratio) 05/22/2025 7:27 AM EDT [facility] Comment: Level of Therapy Indications Target INR Range Standard Dose Treatment and prophylaxis of venous 2.0 - 3.0 thrombosis, pulmonary embolism High Dose High risk patients with mechanical 2.5 - 3.5 heart valves Blood VENOUS BLOOD / Unknown Venipuncture / Unknown 05/22/2025 6:42 AM EDT 05/22/2025 6:58 AM EDT Stephen Pickard MD HEMATOLOGY ORDERABLES Final Result Performing Organization Address City/[facility] Co de Phone Number [facility] [address] [place] [address] , [place] [address] * MAGNESIUM LEVEL (05/22/2025 6:42 AM EDT) Pathologist [facility] Magnesium 1.9 1.6 - 2.4 mg/dL 05/22/2025 7:32 AM EDT [facility] Blood VENOUS BLOOD / Unknown Venipuncture / Unknown 05/22/2025 6:42 AM EDT 05/22/2025 6:58 AM EDT Carlos Manuel Landaverde II, MD CHEMISTRY ORDERABLES Mita mills Result [facility] [address] [facility] , [place] [address] * (ABNORMAL) CBC (05/22/2025 6:42 AM EDT) [facility] WBC 3.1(L) 3.7 - 10.3 x10(3)/mcL 05/22/2025 [...] 05/22/2025 7:13 AM EDT [facility] Blood VENOUS BLOOD / Unknown Venipuncture / Unknown 05/22/2025 6:42 AM EDT 05/22/2025 6:58 AM EDT Carlos Manuel Landaverde II, MD HEMATOLOGY ORDERABLES Fin al Result [facility] [address] [facility] , [place] [address] * (ABNORMAL) BASIC METABOLIC PANEL (05/22/2025 6:42 AM EDT) Sodium 138 136 - 145 mmol/L 05/22/2025 7:32 AM EDT [facility] Potassium 4.1 3.5 - 5.0 mmol/L 05/22/2025 7:32 AM EDT [facility] Chloride 108(H) 98 - 107 mmol/L 05/22/2025 7:32 AM EDT [facility] Total CO2 23 22 - 29 [...] recommended by the National Kidney Foundation - [employer] of Nephrology Task Force. Blood VENOUS BLOOD / Unknown Venipuncture / Unknown 05/22/2025 6:42 AM EDT 05/22/2025 6:58 AM EDT Carlos Manuel Landaverde II, MD CHEMISTRY ORDERABLES Mita l Result Performing Organization Address [facility]/ZIP Co de Phone Number [facility] [address] [facility], [place] [address] * ECG AND WAVEFORMS - TELEMETRY (05/21/2025 7:40 PM EDT) [facility] ECG INTERPRET Atrial Fib [facility] 05/21/2025 7:40 PM EDT Narrative [facility] - 05/21/2025 7:46 PM EDT w/PVCs ROUTINE/AJ QRS 0.10 QT 0.36 See Clinical Report link for waveform capture us Unknown Provider POINT OF CARE CARDIOLOGY Final Result Performing Organization Address [facility] Co de Phone Number [facility] [address] [place] [phone] * (ABNORMAL) CBC WITH DIFF (05/21/2025 7:18 AM EDT) [facility] WBC 3.0(L) 3.7 - 10.3 x10(3)/mcL 05/21/2025 [...] 05/21/2025 1:43 PM EDT [facility] MCHC 31.9 30.7 - 35.5 g/dL 05/21/2025 1:43 PM EDT [facility] RDW 16.0(H) <=14.9 % 05/21/2025 1:43 PM EDT [facility] Platelet 77(L) 155 - 369 x10(3)/mcL 05/21/2025 1:43 PM EDT [facility] MPV 12.7(H) 8.8 - 12.5 fL 05/21/2025 1:43 PM EDT [facility] Neut Percent 53.3 % 05/21/2025 1:43 PM EDT [facility] Comment:Neutrophils equals s egs plus bands Imm Gran% 0.3 % 05/21/2025 1:43 PM EDT [facility] Comment:Automated count of m etamyelocytes, myelocytes and promyelocytes. Lymph Percent 37.2 % 05/21/2025 1:43 PM EDT [facility] [place] Percent 8.9 % 05/21/2025 1:43 PM EDT [facility] Eos Percent 0.0 % 05/21/2025 1:43 PM EDT [facility] Baso Percent 0.3 % 05/21/2025 1:43 PM EDT [facility] Neut # 1.6 1.6 - 6.1 x10(3)/mcL 05/21/2025 1:43 PM EDT [facility] Comment:Neutrophils equals s egs plus bands IMMGRAN# 0.0 0.0 - 0.1 x10(3)/mcL 05/21/2025 1:43 PM EDT [facility] Comment:Automated count of m etamyelocytes, myelocytes and promyelocytes. An absolute IG <0.1 is reported as 0.0. Lymph # 1.1(L) 1.2 - 3.9 x10(3)/mcL 05/21/2025 1:43 PM EDT [facility] [place] # 0.3 0.3 - 0.9 x10(3)/mcL 05/21/2025 1:43 PM EDT [facility] Eos# 0.0 0.0 - 0.5 x10(3)/mcL 05/21/2025 1:43 PM EDT [facility] Baso # 0.0 0.0 - 0.1 x10(3)/mcL 05/21/2025 1:43 PM EDT [facility] [employer] Blood VENOUS BLOOD / Unknown Venipuncture / Unknown 05/21/2025 7:18 AM EDT 05/21/2025 7:22 AM EDT us Stephen Pickard MD HEMATOLOGY ORDERABLES Final Result Performing Organization Address City/[facility]/ZIP Co de Phone Number [facility] [address] [facility], [place] [address] * PERIPHERAL SMEAR/PATH REVIEW (05/21/2025 7:18 AM [...] Sujata Benitez MD 05/22/2025 5:33 PM EDT [facility] Blood VENOUS BLOOD / Unknown Venipuncture / Unknown 05/21/2025 7:18 AM EDT 05/21/2025 7:22 AM EDT us Stephen Pickard MD HEMATOLOGY ORDERABLES Final Result Performing Organization Address City/[facility]/ZIP Co de Phone Number [facility] [address] [place] [address] * (ABNORMAL) IRON+TIBC (05/21/2025 7:18 AM EDT) Iron 41 30 - 160 mcg/dL 05/21/2025 7:57 AM EDT [facility] Transferrin 182(L) 200 - 360 mg/dL 05/21/2025 7:57 AM EDT [facility] Transferrin Saturation 16(L) 20 - 50 % 05/21/2025 7:57 AM EDT [facility] TIBC 255 250 - 400 mcg/dL 05/21/2025 7:57 AM EDT [facility] Blood VENOUS BLOOD / Unknown Venipuncture / Unknown 05/21/2025 7:18 AM EDT 05/21/2025 7:22 AM EDT Carlos Manuel Landaverde II, MD CHEMISTRY ORDERABLES Mita l Result Performing Organization Address [facility] Phone Number [facility] [employer] , [place] [address] * VITAMIN B12/ FOLIC ACID (05/21/2025 7:18 AM EDT) Vitamin B12 806 232 - 1,245 pg/mL 05/21/2025 8:20 AM EDT [facility] Folate >16.00 >=4.80 ng/mL 05/21/2025 8:20 AM EDT [facility] Blood VENOUS BLOOD / Unknown Venipuncture / Unknown 05/21/2025 7:18 AM EDT 05/21/2025 7:22 AM EDT Narrative [facility] [employer] - 05/21/2025 8:20 AM EDT Ingestion of angie doses of biotin (>5 mg/day) taken within 8 hours of drawing blood sample can interfere with this immunoassay test. Carlos Manuel Landaverde II, MD CHEMISTRY ORDERABLES Mita l Result Performing Organization Address [facility] Co de Phone Number [facility], [address] , [place] [address] * MAGNESIUM LEVEL (05/21/2025 7:18 AM EDT) Magnesium 1.8 1.6 - 2.4 mg/dL 05/21/2025 7:57 AM EDT [facility] Blood VENOUS BLOOD / Unknown Venipuncture / Unknown 05/21/2025 7:18 AM EDT 05/21/2025 7:22 AM EDT Carlos Manuel Landaverde II, MD CHEMISTRY ORDERABLES Mita mills Result [facility] [address] [facility] , [place] [address] * (ABNORMAL) CBC (05/21/2025 7:18 AM EDT) [...] 05/21/2025 7:36 AM EDT [facility] Blood VENOUS BLOOD / Unknown Venipuncture / Unknown 05/21/2025 7:18 AM EDT 05/21/2025 7:22 AM EDT us Carlos Manuel Landaverde II, MD HEMATOLOGY ORDERABLES Fin al Result [facility] [address] [facility] , [place] [address] * (ABNORMAL) BASIC METABOLIC PANEL (05/21/2025 7:18 AM EDT) Sodium 138 136 - 145 mmol/L 05/21/2025 7:57 AM EDT [facility] Potassium 4.1 3.5 - 5.0 mmol/L 05/21/2025 7:57 AM EDT [facility] Chloride 107 98 - 107 mmol/L 05/21/2025 7:57 AM EDT [facility] Total CO2 20(L) 22 - 29 mmol/L 05/21/2025 7:57 AM EDT [facility] Anion Gap 11 7 - 16 mmol/L 05/21/2025 7:57 AM EDT [facility] Calcium 8.4(L) 8.8 - 10.4 mg/dL 05/21/2025 7:57 AM EDT [facility] Glucose Lvl 107(H) 70 - 99 mg/dL 05/21/2025 7:57 AM EDT [facility] BUN 22 8 - 23 mg/dL 05/21/2025 7:57 AM EDT [facility] Creatinine 0.94 0.51 - 1.30 mg/dL 05/21/2025 7:57 AM EDT [facility] eGFR (CKD-EPIcr 2020) 59(L) >=60 mL/min/1.7 3 m2 05/21/2025 7:57 AM EDT [facility] Comment:Estimated GFR was ca lculated using the CKD-EPIcr (2020) equation refit without race. The equation is recommended by the National Kidney Foundation - [place] Society of Nephrology Task Force. Blood VENOUS BLOOD / Unknown Venipuncture / Unknown 05/21/2025 7:18 AM EDT 05/21/2025 7:22 AM EDT us Carlos Manuel Landaverde II, MD CHEMISTRY ORDERABLES Mita l Result Performing Organization Address City/[facility]/ZIP Co de Phone Number [facility] [address] [facility], [place] [address] * ECG AND WAVEFORMS - TELEMETRY (05/21/2025 7:00 AM EDT) ECG INTERPRET Atrial Fib [facility] 05/21/2025 7:00 AM EDT Narrative [facility] - 05/21/2025 8:43 AM EDT ROUTINE SDP QRS 0.08 QT 0.38 See Clinical Report link for waveform capture us Unknown Provider POINT OF CARE CARDIOLOGY Final Result Performing Organization Address [facility] Co de Phone Number [facility] [address] [place] [address] * ECG AND WAVEFORMS - TELEMETRY (05/20/2025 7:38 PM EDT) ECG INTERPRET Atrial Fib [facility] 05/20/2025 7:38 PM EDT Narrative [facility] - 05/20/2025 7:43 PM EDT w/PVCs ROUTINE/AJ FL 0.09 QT 0.35 See Clinical Report link for waveform capture us Unknown Provider POINT OF CARE CARDIOLOGY Final Result Performing Organization Address [facility] Co de Phone Number [facility] [address] [place] [address] * ECG AND WAVEFORMS - TELEMETRY (05/20/2025 7:00 AM EDT) ECG INTERPRET Atrial Fib [facility] 05/20/2025 7:00 AM EDT Narrative [facility] - 05/20/2025 10:01 AM EDT ROUTINE SDP QRS 0.08 QT 0.46 See Clinical Report link for waveform capture us Unknown Provider POINT OF CARE CARDIOLOGY Final Result Performing Organization Address City/[facility]/ZIP Co de Phone Number [facility] [address] [place] [address] * MAGNESIUM LEVEL (05/20/2025 6:59 AM EDT) Pathologist [facility] Magnesium 2.1 1.6 - 2.4 mg/dL 05/20/2025 7:56 AM EDT [facility] Blood VENOUS BLOOD / Unknown Venipuncture / Unknown 05/20/2025 6:59 AM EDT 05/20/2025 7:23 AM EDT us Carlos Manuel Landaverde II, MD CHEMISTRY ORDERABLES Mita l Result Performing Organization Address City/[facility]/ZIP Co de Phone Number [facility] [address] [facility] [address], [place] [address] * (ABNORMAL) CBC (05/20/2025 6:59 [...] 05/20/2025 7:32 AM EDT [facility] RDW 15.9(H) <=14.9 % 05/20/2025 7:32 AM EDT [facility] Platelet 86(L) 155 - 369 x10(3)/mcL 05/20/2025 7:32 AM EDT [facility] MPV 12.6(H) 8.8 - 12.5 fL 05/20/2025 7:32 AM EDT [facility] Blood VENOUS BLOOD / Unknown Venipuncture / Unknown 05/20/2025 6:59 AM EDT 05/20/2025 7:23 AM EDT Carlos Manuel Landaverde II, MD HEMATOLOGY ORDERABLES Fin al Result [facility] [address] [facility] , [place] [address] * (ABNORMAL) BASIC METABOLIC PANEL (05/20/2025 6:59 AM EDT) Sodium 137 136 - 145 mmol/L 05/20/2025 7:56 AM EDT [facility] Potassium 4.1 3.5 - 5.0 mmol/L 05/20/2025 7:56 AM EDT [facility] Chloride 106 98 - 107 mmol/L 05/20/2025 7:56 AM EDT [facility] Total CO2 19(L) 22 - 29 mmol/L 05/20/2025 7:56 AM EDT [facility] Anion Gap 12 7 - 16 mmol/L 05/20/2025 7:56 AM EDT [facility] Calcium 8.5(L) 8.8 - 10.4 mg/dL 05/20/2025 7:56 AM EDT [facility] Glucose Lvl 110(H) 70 - 99 mg/dL 05/20/2025 7:56 AM EDT [facility] BUN 21 8 - 23 mg/dL 05/20/2025 7:56 AM EDT [facility] Creatinine 0.91 0.51 - 1.30 mg/dL 05/20/2025 7:56 AM EDT [facility] eGFR (CKD-EPIcr 2020) 62 >=60 mL/min/1.7 3 m2 05/20/2025 7:56 AM EDT [facility] Comment:Estimated GFR was ca lculated using the CKD-EPIcr (2020) equation refit without race. The equation is recommended by the National Kidney Foundation - [place] Society of Nephrology Task Force. Blood VENOUS BLOOD / Unknown Venipuncture / Unknown 05/20/2025 6:59 AM EDT 05/20/2025 7:23 AM EDT us Carlos Manuel Landaverde II, MD CHEMISTRY ORDERABLES Mita l Result Performing Organization Address City/[facility] Co de Phone Number [facility] [employer] [address], [place] [address] * ECG AND WAVEFORMS - TELEMETRY (05/19/2025 8:00 PM EDT) ECG INTERPRET Atrial Fib [facility] 05/19/2025 8:00 PM EDT Narrative [facility] - 05/19/2025 8:45 PM EDT ROUTINE (MS) QRS 0.11 See Clinical Report link for waveform capture us Unknown Provider POINT OF CARE CARDIOLOGY Final Result Performing Organization Address [facility] Co de Phone Number [facility] [address] [place] [address] * ECG AND WAVEFORMS - TELEMETRY (05/19/2025 8:07 AM EDT) ECG INTERPRET Atrial Fib [facility] 05/19/2025 8:07 AM EDT Narrative [facility] - 05/19/2025 8:09 AM EDT ROUTINE//AC See Clinical Report link for waveform capture us Unknown Provider POINT OF CARE CARDIOLOGY Final Result Performing Organization Address [facility] Co de Phone Number [facility] [address] [phone] * XR ABDOMEN AP (05/19/2025 8:00 AM [...] 7:00 PM EDT) ECG INTERPRET Atrial Fib [facility] 05/18/2025 7:00 PM EDT Narrative [facility] - 05/18/2025 7:38 PM EDT PVC - ROUTINE QRS 0.11 See Clinical Report link for waveform capture us Unknown Provider POINT OF CARE CARDIOLOGY Final Result Performing Organization Address City/[facility]/ZIP Co de Phone Number [facility] [address] [place] [address] * ECG AND WAVEFORMS - TELEMETRY (05/18/2025 7:04 AM EDT) Pathologist [facility] ECG INTERPRET Atrial Fib [facility] 05/18/2025 7:04 AM EDT Narrative [facility] - 05/18/2025 7:58 AM EDT ROUTINE-BB See Clinical Report link for waveform capture us Unknown Provider POINT OF CARE CARDIOLOGY Final Result Performing Organization Address [facility]/ZIP Co de Phone Number [facility] [address] [place] [address] * EXTRA HUITRON URINE CX (05/18/2025 6:43 AM EDT) Urine URINARY BLADDER STRUCTURE / Unknown 05/18/2025 6:43 AM EDT 05/18/2025 6:51 AM EDT us Cara Diallo APRN MICROBIOLOGY - GENERAL ORDERABLES Final Result Performing Organization Address [facility] Co de Phone Number [facility] [address] [place] [address] * URINALYSIS REFLEX (05/18/2025 6:43 AM EDT) [...] Urobilinogen Normal <=1 mg/dL 6:54 AM EDT [facility] UA Bili Negative Negative 05/18/2025 6:54 AM EDT [facility] UA Nitrite Negative Negative 05/18/2025 6:54 AM EDT [facility] UA Leuk Est Negative Negative 05/18/2025 6:54 AM EDT [facility] UA Spec Grav 1.013 1.001 - 1.035 no units 05/18/2025 6:54 AM EDT [facility] Comment:Reference range helga d for random specimens only. Urine URINARY BLADDER STRUCTURE / Unknown 05/18/2025 6:43 AM EDT 05/18/2025 6:51 AM EDT Cara Diallo APRN URINE ORDERABLES Final Result Performing Organization Address [facility]/ZIP Co de Phone Number [address] , [place] [address] * MAGNESIUM LEVEL (05/18/2025 6:28 AM EDT) Magnesium 2.1 1.6 - 2.4 mg/dL 05/18/2025 7:08 AM EDT [facility] Blood VENOUS BLOOD / Unknown Venipuncture / Unknown 05/18/2025 6:28 AM EDT 05/18/2025 6:37 AM EDT Carlos Manuel Landaverde II, MD CHEMISTRY ORDERABLES Mita l Result Performing Organization Address City/[facility]/ZIP Co de Phone Number [facility] [address] [facility] , [place] [address] * (ABNORMAL) CBC (05/18/2025 6:28 AM EDT) WBC 4.8 3.7 - 10.3 x10(3)/mcL 05/18/2025 6:44 AM EDT [facility] RBC 2.31(L) 3.90 - 5.20 x10(6)/mcL [...] 6:44 AM EDT [facility] RDW 16.1(H) <=14.9 % 05/18/2025 6:44 AM EDT [facility] Platelet 97(L) 155 - 369 x10(3)/mcL 05/18/2025 6:44 AM EDT [facility] MPV 12.6(H) 8.8 - 12.5 fL 05/18/2025 6:44 AM EDT [facility] Blood VENOUS BLOOD / Unknown Venipuncture / Unknown 05/18/2025 6:28 AM EDT 05/18/2025 6:37 AM EDT us Carlos Manuel Landaverde II, MD HEMATOLOGY ORDERABLES Fin al Result [facility] [address] [facility] , [address] [place] [id number] * (ABNORMAL) BASIC METABOLIC PANEL (05/18/2025 6:28 AM EDT) Sodium 136 136 - 145 mmol/L 05/18/2025 7:08 AM EDT [facility] Potassium 4.2 3.5 - 5.0 mmol/L 05/18/2025 7:08 AM EDT [facility] Chloride 106 98 - 107 mmol/L 05/18/2025 7:08 AM EDT [facility] Total CO2 19(L) 22 - 29 mmol/L 05/18/2025 7:08 AM EDT [facility] Anion Gap 11 7 - 16 mmol/L 05/18/2025 7:08 AM EDT [facility] Calcium 8.9 8.8 - 10.4 mg/dL 05/18/2025 7:08 AM EDT [facility] Glucose Lvl 131(H) 70 - 99 mg/dL 05/18/2025 7:08 AM EDT [facility] BUN 18 8 - 23 mg/dL 05/18/2025 7:08 AM EDT [facility] Creatinine 0.83 0.51 - 1.30 mg/dL 05/18/2025 7:08 AM EDT [facility] eGFR (CKD-EPIcr 2020) 69 >=60 mL/min/1.7 3 m2 05/18/2025 7:08 AM EDT [facility] Comment:Estimated GFR was ca lculated using the CKD-EPIcr (2020) equation refit without race. The equation is recommended by the National Kidney Foundation - [place] Society of Nephrology Task Force. Blood VENOUS BLOOD / Unknown Venipuncture / Unknown 05/18/2025 6:28 AM EDT 05/18/2025 6:37 AM EDT us Carlos Manuel Landaverde II, MD CHEMISTRY ORDERABLES Mita l Result Performing Organization Address City/[facility]/ZIP Co de Phone Number [address], [place] [address] * ECG AND WAVEFORMS - TELEMETRY (05/17/2025 7:08 PM EDT) ECG INTERPRET Atrial Fib [facility] 05/17/2025 7:08 PM EDT Narrative [facility] - 05/17/2025 7:18 PM EDT HC/ROUTINE QRS 0.11 See Clinical Report link for waveform capture us Unknown Provider POINT OF CARE CARDIOLOGY Final Result [facility] [address] [place], [place] [id number] * MAGNESIUM LEVEL (05/17/2025 1:29 PM EDT) Pathologist [facility] Magnesium 2.1 1.6 - 2.4 mg/dL 05/17/2025 2:32 PM EDT [facility] Blood VENOUS BLOOD / Unknown Venipuncture / Unknown 05/17/2025 1:29 PM EDT 05/17/2025 1:35 PM EDT Carlos Manuel Landaverde II, MD CHEMISTRY ORDERABLES Mita l Result [facility] [address] [facility] , [place] [address] * (ABNORMAL) CBC (05/17/2025 1:29 PM EDT) WBC 2.9(L) 3.7 - 10.3 x10(3)/mcL 05/17/2025 [...] 05/17/2025 2:40 PM EDT [facility] Blood VENOUS BLOOD / Unknown Venipuncture / Unknown 05/17/2025 1:29 PM EDT 05/17/2025 1:35 PM EDT Carlos Manuel Landaverde II, MD HEMATOLOGY ORDERABLES Fin al Result [facility] [address] [facility] , [place] [address] * (ABNORMAL) BASIC METABOLIC PANEL (05/17/2025 1:29 PM EDT) Sodium 137 136 - 145 mmol/L 05/17/2025 2:32 PM EDT [facility] Potassium 4.1 3.5 - 5.0 mmol/L 05/17/2025 2:32 PM EDT [facility] Chloride 107 98 - 107 mmol/L 05/17/2025 2:32 PM EDT [facility] Total CO2 21(L) 22 - 29 [...] recommended by the National Kidney Foundation - [place] Society of Nephrology Task Force. Blood VENOUS BLOOD / Unknown Venipuncture / Unknown 05/17/2025 1:29 PM EDT 05/17/2025 1:35 PM EDT us Carlos Manuel Landaverde II, MD CHEMISTRY ORDERABLES Mita l Result Performing Organization Address City/[facility]/ZIP Co de Phone Number [facility] [employer] [facility] [address] [facility], [place] [address] * ECG AND WAVEFORMS - TELEMETRY (05/17/2025 7:31 AM EDT) ECG INTERPRET Atrial Fib [facility] 05/17/2025 7:31 AM EDT Narrative [facility] - 05/17/2025 8:33 AM EDT ROUTINE-BB See Clinical Report link for waveform capture us Unknown Provider POINT OF CARE CARDIOLOGY Final Result Performing Organization Address [facility] de Phone Number [facility] [address] [place] [address] * ECG AND WAVEFORMS - TELEMETRY (05/16/2025 10:49 PM EDT) ECG INTERPRET Atrial Fib [facility] 05/16/2025 10:4 9 PM EDT Narrative [facility] - 05/16/2025 11:00 PM EDT nEW ADMIT (MS) QRS 0.10 See Clinical Report link for waveform capture us Unknown Provider POINT OF CARE CARDIOLOGY Final Result Performing Organization Address [facility] Co de Phone Number [facility] [address] [place] [address] * ECG AND WAVEFORMS - TELEMETRY (05/16/2025 7:26 AM EDT) ECG INTERPRET Atrial Fib [facility] 05/16/2025 7:26 AM EDT Narrative [facility] - 05/16/2025 7:27 AM EDT ROUTINE/PB QRS 0.09 See Clinical Report link for waveform capture us Unknown Provider POINT OF CARE CARDIOLOGY Final Result [facility] 1 [place] [address] * (ABNORMAL) CBC (05/16/2025 3:24 [...] ORDERABLES Fin al Result [facility] [address] [facility], [place] [address] * (ABNORMAL) BASIC METABOLIC PANEL (05/16/2025 3:24 [...] mL/min/1.7 3 m2 05/16/2025 4:10 AM EDT [facility] Comment:Estimated GFR was ca lculated using the CKD-EPIcr (2020) equation refit without race. The equation is recommended by the National Kidney Foundation - [place] Society of Nephrology Task Force. Blood VENOUS BLOOD / Unknown Venipuncture / Unknown 05/16/2025 3:24 AM EDT 05/16/2025 3:36 AM EDT us Carlos Manuel Landaverde II, MD CHEMISTRY ORDERABLES Mita l Result [facility], [address] , [address] [place] [phone] * MAGNESIUM LEVEL (05/16/2025 3:24 AM EDT) Pathologist [facility] Magnesium 1.9 1.6 - 2.4 mg/dL 05/16/2025 4:10 AM EDT [facility] Blood VENOUS BLOOD / Unknown Venipuncture / Unknown 05/16/2025 3:24 AM EDT 05/16/2025 3:36 AM EDT Carlos Manuel Landaverde II, MD CHEMISTRY ORDERABLES Mita l Result [facility] [employer], [address] , [address] [place] [phone] * ECG AND WAVEFORMS - TELEMETRY (05/15/2025 8:05 PM EDT) [facility] ECG INTERPRET Atrial Fib [facility] 05/15/2025 8:05 PM EDT Narrative [facility] - 05/15/2025 8:11 PM EDT ROUTINE (AM) QRS 0.11 QT 0.45 See Clinical Report link for waveform capture Unknown Provider POINT OF CARE CARDIOLOGY Final Result [facility] 1 [place] [phone] * (ABNORMAL) CBC (05/15/2025 10:41 AM EDT) Pathologist [facility] WBC 3.1(L) 3.7 - 10.3 x10(3)/mcL 05/15/2025 11:08 AM EDT [facility] RBC 2.23(L) 3.90 - 5.20 x10(6)/mcL 05/15/2025 11:08 AM EDT [facility] Hgb 8.3(L) 11.2 - 15.7 g/dL 05/15/2025 11:08 AM EDT [facility] Hct 25.6(L) 34.0 - 45.0 % 05/15/2025 11:08 AM EDT [facility] MCV 114.8(H) 80.0 - 100.0 fL 05/15/2025 11:08 AM EDT [facility] MCH 37.2(H) 26.0 - 34.0 pg 05/15/2025 11:08 AM EDT [facility] MCHC 32.4 30.7 - 35.5 g/dL 05/15/2025 11:08 AM EDT [facility] RDW 16.3(H) <=14.9 % 05/15/2025 11:08 AM EDT [facility] Platelet 76(L) 155 - 369 x10(3)/mcL 05/15/2025 11:08 AM EDT [facility] MPV 12.6(H) 8.8 - 12.5 fL 05/15/2025 11:08 AM EDT [facility] Blood VENOUS BLOOD / Unknown Venipuncture / Unknown 05/15/2025 10:41 AM EDT 05/15/2025 10:56 AM EDT Carlos Manuel Landaverde II, MD HEMATOLOGY ORDERABLES Fin al Result Performing Organization Address City/[facility]/ZIP Co de Phone Number [facility], [address] , [place] [address] * MAGNESIUM LEVEL (05/15/2025 10:41 AM EDT) Magnesium 1.9 1.6 - 2.4 mg/dL 05/15/2025 11:30 AM EDT [facility] Blood VENOUS BLOOD / Unknown Venipuncture / Unknown 05/15/2025 10:41 AM EDT 05/15/2025 10:56 AM EDT Carlos Manuel Landaverde II, MD CHEMISTRY ORDERABLES Mita l Result Performing Organization Address City/[facility]/ZIP Co de Phone Number [facility], [address] [place] [address] * (ABNORMAL) BASIC METABOLIC PANEL (05/15/2025 10:41 AM EDT) Sodium 138 136 - 145 mmol/L 05/15/2025 11:30 AM EDT [facility] Potassium 4.4 3.5 - 5.0 mmol/L 05/15/2025 11:30 AM EDT [facility] Chloride 107 98 - 107 mmol/L 05/15/2025 11:30 AM EDT [facility] Total CO2 22 22 - 29 mmol/L 05/15/2025 11:30 AM EDT [facility] Anion Gap 9 7 - 16 mmol/L 05/15/2025 11:30 AM EDT [facility] Calcium 8.7(L) 8.8 - 10.4 mg/dL 05/15/2025 11:30 AM EDT [facility] Glucose Lvl 116(H) 70 - 99 mg/dL 05/15/2025 11:30 AM EDT [facility] BUN 19 8 - 23 mg/dL 05/15/2025 11:30 AM EDT [facility] Creatinine 0.80 0.51 - 1.30 mg/dL 05/15/2025 11:30 AM EDT [facility] eGFR (CKD-EPIcr 2020) 72 >=60 mL/min/1.7 3 m2 05/15/2025 11:30 AM EDT [facility] Comment:Estimated GFR was ca lculated using the CKD-EPIcr (2020) equation refit without race. The equation is recommended by the National Kidney Foundation - [place] Society of Nephrology Task Force. Blood VENOUS BLOOD / Unknown Venipuncture / Unknown 05/15/2025 10:41 AM EDT 05/15/2025 10:56 AM EDT us Carlos Manuel Landaverde II, MD CHEMISTRY ORDERABLES Mita mills Result [facility] [address] [facility] , [place] [address] * ECG AND WAVEFORMS - TELEMETRY (05/15/2025 7:03 AM EDT) ECG INTERPRET Atrial Fib [facility] 05/15/2025 7:03 AM EDT Narrative [facility] - 05/15/2025 7:51 AM EDT ROUTINE-BB See Clinical Report link for waveform capture us Unknown Provider POINT OF CARE CARDIOLOGY Final Result Performing Organization Address [facility] de Phone Number [facility] [address] [place] [address] * ECG AND WAVEFORMS - TELEMETRY (05/14/2025 8:40 PM EDT) ECG INTERPRET Atrial Fib [facility] 05/14/2025 8:40 PM EDT Narrative [facility] - 05/14/2025 8:45 PM EDT PVCS ROUTINE (AM) See Clinical Report link for waveform capture us Unknown Provider POINT OF CARE CARDIOLOGY Final Result Performing Organization Address [facility] de Phone Number [facility] [address] [place] [address] * ECG AND WAVEFORMS - TELEMETRY (05/14/2025 7:46 AM EDT) ECG INTERPRET Atrial Fib [facility] 05/14/2025 7:46 AM EDT Narrative [facility] - 05/14/2025 7:47 AM EDT ROUTINE/PB QRS 0.09 See Clinical Report link for waveform capture us Unknown Provider POINT OF CARE CARDIOLOGY Final Result Performing Organization Address [facility] de Phone Number [facility] [address] [place] [address] * ECG AND WAVEFORMS - TELEMETRY (05/13/2025 8:30 PM EDT) ECG INTERPRET Atrial Fib [facility] 05/13/2025 8:30 PM EDT Narrative [facility] - 05/13/2025 8:37 PM EDT PVC . ROUTINE (AM) FL 0.19 QRS 0.11 RR 0.65 QT 0.37 QTc 0.46 See Clinical Report link for waveform capture us Unknown Provider POINT OF CARE CARDIOLOGY Final Result Performing Organization Address [facility] Co de Phone Number [facility] [address] [place] [address] * ECG AND WAVEFORMS - TELEMETRY (05/13/2025 6:32 PM EDT) ECG INTERPRET Ventricular Tachycardia [facility] Comment:6 beats 05/13/2025 6:32 PM EDT Narrative [facility] - 05/13/2025 6:40 PM EDT 6 BTS NSVT/AK See Clinical Report link for waveform capture us Unknown Provider POINT OF CARE CARDIOLOGY Final Result Performing Organization Address [facility] de Phone Number [facility] [address] [place] [address] * ECG AND WAVEFORMS - TELEMETRY (05/13/2025 7:40 AM EDT) ECG INTERPRET Atrial Fib [facility] 05/13/2025 7:40 AM EDT Narrative [facility] - 05/13/2025 7:44 AM EDT ROUTINE/AK QRS 0.09 See Clinical Report link for waveform capture us Unknown Provider POINT OF CARE CARDIOLOGY Final Result Performing Organization Address [facility] de Phone Number [facility] 1 [place] [address] * ECG AND WAVEFORMS - TELEMETRY (05/12/2025 7:00 PM EDT) ECG INTERPRET Atrial Fib [facility] 05/12/2025 7:00 PM EDT Narrative [facility] - 05/12/2025 7:46 PM EDT ROUTINE (MS) QRS 0.10 See Clinical Report link for waveform capture us Unknown Provider POINT OF CARE CARDIOLOGY Final Result Performing Organization Address [facility] Co de Phone Number [facility] [address] [place] [address] * GLUCOSE METER POC (05/12/2025 12:04 PM EDT) Glucose Meter POC 87 70 - 100 mg/dL 05/12/2025 12:05 PM EDT [facility] Sample Type Capillary 05/12/2025 12:05 PM EDT [facility] Patient Status Non-Critical Patient 05/12/2025 12:05 PM EDT [facility] Blood BLOOD SPECIMEN / Unknown 05/12/2025 12:04 PM EDT 05/12/2025 12:05 PM EDT us Marcell Aguirre MD POINT OF CARE TEST [place]AB[place] [address] * (ABNORMAL) GLUCOSE METER POC (05/12/2025 10:40 AM EDT) Glucose Meter POC 105(H) 70 - 100 mg/dL 05/12/2025 10:43 AM EDT [facility] Sample Type Capillary 05/12/2025 10:43 AM EDT [facility] Patient Status Non-Critical Patient 05/12/2025 10:43 AM EDT [facility] Blood BLOOD SPECIMEN / Unknown 05/12/2025 10:40 AM EDT 05/12/2025 10:43 AM EDT us Marcell Aguirre MD POINT OF CARE TEST ORDERABLES Final Result [facility] 1 [place] [address] * ECG AND WAVEFORMS - TELEMETRY (05/12/2025 7:30 AM EDT) ECG INTERPRET Atrial Fib [facility] 05/12/2025 7:30 AM EDT Narrative [facility] - 05/12/2025 7:59 AM EDT TRO/AM ROUTINE QRS 0.10 QT 0.39 See Clinical Report link for waveform capture us Unknown Provider POINT OF CARE CARDIOLOGY Final Result Performing Organization Address [facility] Co de Phone Number [facility] 1 [place] [address] * ECG AND WAVEFORMS - TELEMETRY (05/11/2025 7:00 PM EDT) ECG INTERPRET Atrial Fib [facility] 05/11/2025 7:00 PM EDT Narrative [facility] - 05/11/2025 8:43 PM EDT QRS 0.09 See Clinical Report link for waveform capture us Unknown Provider POINT OF CARE CARDIOLOGY Final Result Performing Organization Address [facility] de Phone Number [facility] [address] [place] [address] * ECG AND WAVEFORMS - TELEMETRY (05/11/2025 8:01 AM EDT) ECG INTERPRET Atrial Fib [facility] 05/11/2025 8:01 AM EDT Narrative [facility] - 05/11/2025 8:32 AM EDT TRO/AM ROUTINE- AFIB PVC QRS 0.11 QT 0.37 See Clinical Report link for waveform capture us Unknown Provider POINT OF CARE CARDIOLOGY Final Result Performing Organization Address [facility] Co de Phone Number [facility] 1 [place] [address] * ECG AND WAVEFORMS - TELEMETRY (05/10/2025 7:12 PM EDT) ECG INTERPRET Atrial Fib [facility] 05/10/2025 7:12 PM EDT Narrative [facility] - 05/10/2025 7:56 PM EDT ROUTINE QRS 0.12 See Clinical Report link for waveform capture us Unknown Provider POINT OF CARE CARDIOLOGY Final Result Performing Organization Address [facility] Co de Phone Number [facility] [address] [place] [address] * ECG AND WAVEFORMS - TELEMETRY (05/10/2025 5:30 PM EDT) ECG INTERPRET Atrial Fib [facility] 05/10/2025 5:30 PM EDT Narrative [facility] - 05/10/2025 5:34 PM EDT ADMIT (BS) QRS 0.09 See Clinical Report link for waveform capture us Unknown Provider POINT OF CARE CARDIOLOGY Final Result Performing Organization Address City/[facility]/ZIP Co de Phone Number [facility] [address] [place] [address] * (ABNORMAL) GLUCOSE METER POC (05/10/2025 2:18 PM EDT) [facility] Signature Glucose Meter POC 104(H) 70 - 100 mg/dL 05/10/2025 2:20 PM EDT [facility] Sample Type Capillary 05/10/2025 2:20 PM EDT [facility] Patient Status Non-Critical Patient 05/10/2025 2:20 PM EDT [facility] Blood BLOOD SPECIMEN / Unknown 05/10/2025 2:18 PM EDT 05/10/2025 2:20 PM EDT us Marcell Aguirre MD POINT OF CARE TEST ORDERABLES Final Result Performing Organization Address [facility]/ZIP Co de Phone Number [facility] [address] [place] [address] * IR ULTRASOUND GUIDED VASCULAR ACCESS (05/10/2025 2:06 PM EDT) Anatomical Region Laterality Modality Interventional R adiology Narrative 05/19/2025 3:05 PM EDT DATE OF PROCEDURE: 05/10/2025 PREOPERATIVE DIAGNOSES: LLE critical limb ischemia, History of L TMA, PAD POSTOPERATIVE DIAGNOSES: Same PROCEDURE PERFORMED: 1. US guided access of the right common femoral artery 2. Abdominal aortogram. Selection of L SFA via R BARREL RIBS SOLDERER (3rd order) with left lower extremity angiogram. Selection of SHOWROOM EXECUTIVE DIRECTOR with additional angiogram. Radiographic supervision and interpretation [...] TPT and peroneal artery, reconstitution of proximal SHOWROOM EXECUTIVE DIRECTOR with mid and distal SHOWROOM EXECUTIVE DIRECTOR with multifocal severe stenosis of proximal and mid SHOWROOM EXECUTIVE DIRECTOR but occluded distally without reconstitution. Significant small [...] with severe stenosis, patent proximal and mid SHOWROOM EXECUTIVE DIRECTOR with multifocal severe stenosis, patent peroneal artery Significant small vessel disease in L foot INDICATIONS: Skyler Bautista is a 84 y.o. female with PMHx significant for PAD s/p pelvic angiogram with bilateral NILAY stents s/p LLE angiogram with SHOWROOM EXECUTIVE DIRECTOR of popliteal artery, TPT and peroneal artery [...] a hemostat. Under ultrasound guidance, the R BARREL RIBS SOLDERER was accessed using a micropuncture needle. X-ray [...] an 11 cm 5 Fr sheath. Next, HIGH MOBILITYson wire and Omniflush catheter were advanced to [...] and catheter were used to select the SHOWROOM EXECUTIVE DIRECTOR to better evaluate if it reconstituted distally. After the SHOWROOM EXECUTIVE DIRECTOR was selected, an angiogram was obtained, which [...] procedure. SUMMARY: Significant small vessel disease. Occluded SHOWROOM EXECUTIVE DIRECTOR and DAREN distally without reconstitution. RECOMMENDATIONS: Bed rest for 3 hours. Recommend proximal LLE amputation. Voice recognition technology was used to complete this note, and it may contain unintended errors despite the check writer salesperson's best efforts to proofread it. Please contact me with questions. TID: [id number] us Lawrence Wolf MD IMG IR ORDERABLES [...] aortogram. Selection of L SFA via R BARREL RIBS SOLDERER (3rd order) with left lower extremity angiogram. Selection of SHOWROOM EXECUTIVE DIRECTOR with additional angiogram. Radiographic supervision and interpretation [...] TPT and peroneal artery, reconstitution of proximal SHOWROOM EXECUTIVE DIRECTOR with mid and distal SHOWROOM EXECUTIVE DIRECTOR with multifocal severe stenosis of proximal and mid SHOWROOM EXECUTIVE DIRECTOR but occluded distally without reconstitution. Significant small [...] with severe stenosis, patent proximal and mid SHOWROOM EXECUTIVE DIRECTOR with multifocal severe stenosis, patent peroneal artery Significant small vessel disease in L foot INDICATIONS: Skyler Bautista is a 84 y.o. female with PMHx significant for PAD s/p pelvic angiogram with bilateral NILAY stents s/p LLE angiogram with SHOWROOM EXECUTIVE DIRECTOR of popliteal artery, TPT and peroneal artery [...] a hemostat. Under ultrasound guidance, the R BARREL RIBS SOLDERER was accessed using a micropuncture needle. X-ray [...] and catheter were used to select the SHOWROOM EXECUTIVE DIRECTOR to better evaluate if it reconstituted distally. After the SHOWROOM EXECUTIVE DIRECTOR was selected, an angiogram was obtained, which [...] procedure. SUMMARY: Significant small vessel disease. Occluded SHOWROOM EXECUTIVE DIRECTOR and DAREN distally without reconstitution. RECOMMENDATIONS: Bed rest for 3 hours. Recommend proximal LLE amputation. Voice recognition technology was used to complete this note, and it may contain unintended errors despite the check writer salesperson's best efforts to proofread it. Please contact me with questions. TID: [id number] us Lawrence Wolf MD IMG IR ORDERABLES Final Res ult * ECG AND WAVEFORMS - TELEMETRY (05/10/2025 8:04 AM EDT) ECG INTERPRET Atrial Fib [facility] 05/10/2025 8:04 AM EDT Narrative [facility] - 05/10/2025 8:10 AM EDT EH - ROUTINE; PVCs QRS 0.12 See Clinical Report link for waveform capture us Unknown Provider POINT OF CARE CARDIOLOGY Final Result Performing Organization Address [facility] [facility] Co de Phone Number [facility] [address] [place] [address] * ECG AND WAVEFORMS - TELEMETRY (05/09/2025 7:03 PM EDT) ECG INTERPRET Atrial Fib [facility] 05/09/2025 7:03 PM EDT Narrative [facility] - 05/09/2025 8:25 PM EDT PVC- ROUTINE QRS 0.09 See Clinical Report link for waveform capture us Unknown Provider POINT OF CARE CARDIOLOGY Final Result Performing Organization Address [facility] de Phone Number [facility] [address] [place] [address] * (ABNORMAL) GLUCOSE METER POC (05/09/2025 3:49 PM EDT) [facility] Glucose Meter POC 134(H) 70 - 100 mg/dL 05/09/2025 3:50 PM EDT [facility] Sample Type Capillary 05/09/2025 3:50 PM EDT [facility] Patient Status Non-Critical Patient 05/09/2025 3:50 PM EDT [facility] Blood BLOOD SPECIMEN / Unknown 05/09/2025 3:49 PM EDT 05/09/2025 3:50 PM EDT us Marcell Aguirre MD POINT OF CARE TEST ORDERABLES Final Result Performing Organization Address [facility] Co de Phone Number [facility] [address] [place] [address] * ECG AND WAVEFORMS - TELEMETRY (05/09/2025 12:37 PM EDT) ECG INTERPRET Atrial Fib [facility] 05/09/2025 12:3 7 PM EDT Narrative [facility] - 05/09/2025 12:40 PM EDT EH - NEW ADMIT; PVCs QRS 0.12 See Clinical Report link for waveform capture us Unknown Provider POINT OF CARE CARDIOLOGY Final Result Performing Organization Address [facility] Co de Phone Number [facility] [address] [place] [address] * ECG AND WAVEFORMS - TELEMETRY (05/09/2025 7:34 AM EDT) ECG INTERPRET Atrial Fib [facility] 05/09/2025 7:34 AM EDT Narrative [facility] - 05/09/2025 7:58 AM EDT ROUTINE//AC See Clinical Report link for waveform capture us Unknown Provider POINT OF CARE CARDIOLOGY Final Result Performing Organization Address [facility] de Phone Number [facility] [address] [place] [address] * ECG AND WAVEFORMS - TELEMETRY (05/08/2025 7:01 PM EDT) ECG INTERPRET Atrial Fib [facility] 05/08/2025 7:01 PM EDT Narrative [facility] - 05/08/2025 7:49 PM EDT ROUTINE W/ PVCS (HM) QRS 0.09 See Clinical Report link for waveform capture us Unknown Provider POINT OF CARE CARDIOLOGY Final Result Performing Organization Address [facility] de Phone Number [facility] [address] [place] [address] * ECG AND WAVEFORMS - TELEMETRY (05/08/2025 7:20 AM EDT) ECG INTERPRET Atrial Fib [facility] 05/08/2025 7:20 AM EDT Narrative [facility] - 05/08/2025 7:22 AM EDT PVCS-ROUTINE/PB QRS 0.09 See Clinical Report link for waveform capture us Unknown Provider POINT OF CARE CARDIOLOGY Final Result Performing Organization Address [facility] Co de Phone Number [facility] [address] [place] [address] * (ABNORMAL) CBC (05/08/2025 5:24 AM EDT) WBC 3.9 3.7 - 10.3 x10(3)/[facility] 05/08/2025 6:38 AM EDT [facility] RBC 1.99(L) 3.90 - 5.20 x10(6)/mcL 05/08/2025 6:38 AM EDT [facility] Hgb 7.4(L) 11.2 - 15.7 g/dL 05/08/2025 6:38 AM EDT [facility] Hct 22.6(L) 34.0 - 45.0 % 05/08/2025 6:38 AM EDT [facility] MCV 113.6(H) 80.0 - 100.0 fL 05/08/2025 6:38 AM EDT [facility] MCH 37.2(H) 26.0 - 34.0 pg 05/08/2025 6:38 AM EDT [facility] MCHC 32.7 30.7 - 35.5 g/dL 05/08/2025 6:38 AM EDT [facility] RDW 17.6(H) <=14.9 % 05/08/2025 6:38 AM EDT [facility] Platelet 60(L) 155 - 369 x10(3)/[facility] 05/08/2025 6:38 AM EDT [facility] MPV 12.6(H) 8.8 - 12.5 fL 05/08/2025 6:38 AM EDT [facility] Blood VENOUS BLOOD / Unknown Venipuncture / Unknown 05/08/2025 5:24 AM EDT 05/08/2025 6:28 AM EDT us Geo Guallpa MD HEMATOLOGY ORDERABLES Final Resu lt [facility] [address] [facility] , [place] [address] * (ABNORMAL) BASIC METABOLIC PANEL (05/08/2025 5:24 AM EDT) Sodium 137 136 - 145 mmol/L 05/08/2025 6:59 AM EDT [facility] Potassium 4.2 3.5 - 5.0 mmol/L 05/08/2025 6:59 AM EDT [facility] Chloride 107 98 - 107 mmol/L 05/08/2025 6:59 AM EDT [facility] Total CO2 21(L) 22 - 29 mmol/L 05/08/2025 6:59 AM EDT [facility] Anion Gap 9 7 - 16 mmol/L 05/08/2025 6:59 AM EDT [facility] Calcium 8.6(L) 8.8 - 10.4 mg/dL 05/08/2025 6:59 AM EDT [facility] Glucose Lvl 116(H) 70 - 99 mg/dL 05/08/2025 6:59 AM EDT [facility] BUN 27(H) 8 - 23 mg/dL 05/08/2025 6:59 AM EDT [facility] Creatinine 0.78 0.51 - 1.30 mg/dL 05/08/2025 6:59 AM EDT [facility] eGFR (CKD-EPIcr 2020) 74 >=60 mL/min/1.7 3 m2 05/08/2025 6:59 AM EDT [facility] Comment:Estimated GFR was ca lculated using the CKD-EPIcr (2020) equation refit without race. The equation is recommended by the National Kid[employer] - [employer] Neph[employer] Task Force. Blood VENOUS BLOOD / Unknown Venipuncture / Unknown 05/08/2025 5:24 AM EDT 05/08/2025 6:28 AM EDT us Geo Guallpa MD CHEMISTRY ORDERABLES Final Resul t [facility] [address] [facility] , [place] [address] * ECG AND WAVEFORMS - TELEMETRY (05/07/2025 10:27 PM EDT) ECG INTERPRET Atrial Fib [facility] 05/07/2025 10:2 7 PM EDT Narrative [facility] - 05/07/2025 10:29 PM EDT ROUTINE/JF QRS 0.10 See Clinical Report link for waveform capture us Unknown Provider POINT OF CARE CARDIOLOGY Final Result [facility] [address] [place] [id number] * (ABNORMAL) CBC (05/07/2025 7:33 AM EDT) [...] ORDERABLES Final Resu lt [facility] [address] [facility], [place] [address] * (ABNORMAL) BASIC METABOLIC PANEL (05/07/2025 7:33 AM EDT) Sodium 135(L) 136 - 145 mmol/L 05/07/2025 8:11 AM EDT [facility] Potassium 4.2 3.5 - 5.0 mmol/L 05/07/2025 8:11 AM EDT [facility] Chloride 104 98 - 107 mmol/L 05/07/2025 8:11 AM EDT [facility] Total CO2 20(L) 22 - 29 [...] recommended by the National Kidney [employer] - [employer] Neph[employer] Task Force. Blood VENOUS BLOOD / Unknown Venipuncture / Unknown 05/07/2025 7:33 AM EDT 05/07/2025 7:38 AM EDT Geo Guallpa MD CHEMISTRY ORDERABLES Final Resul t Performing Organization Address City/[facility]/ZIP Co de Phone Number [facility] [address] [facility], [place] [address] * ECG AND WAVEFORMS - TELEMETRY (05/07/2025 7:03 AM EDT) ECG INTERPRET Atrial Fib [facility] 05/07/2025 7:03 AM EDT Narrative [facility] - 05/07/2025 8:32 AM EDT AM ROUTINE QRS 0.09 See Clinical Report link for waveform capture us Unknown Provider POINT OF CARE CARDIOLOGY Final Result Performing Organization Address [facility]/ZIP Co de Phone Number [facility] [address] [place] [address] * ECG AND WAVEFORMS - TELEMETRY (05/06/2025 9:57 PM EDT) ECG INTERPRET Atrial Fib [facility] 05/06/2025 9:57 PM EDT Narrative [facility] - 05/06/2025 9:59 PM EDT ROUTINE/JF QRS 0.08 See Clinical Report link for waveform capture us Unknown Provider POINT OF CARE CARDIOLOGY Final Result Performing Organization Address [facility] de Phone Number [facility] [address] [place] [address] * (ABNORMAL) GLUCOSE METER POC (05/06/2025 5:50 PM EDT) [facility] Glucose Meter POC 110(H) 70 - 100 mg/dL 05/06/2025 5:52 PM EDT [facility] Sample Type Capillary 05/06/2025 5:52 PM EDT [facility] Patient Status Non-Critical Patient 05/06/2025 5:52 PM EDT [facility] Blood BLOOD SPECIMEN / Unknown 05/06/2025 5:50 PM EDT 05/06/2025 5:52 PM EDT us Marcell Aguirre MD POINT OF CARE TEST ORDERABLES Final Result Performing Organization Address City/[facility]/ZIP Co de Phone Number [facility] 1 [place] [address] * POTASSIUM REPEAT (05/06/2025 9:19 AM EDT) [facility] Potassium 4.8 3.5 - 5.0 mmol/L 05/06/2025 9:56 AM EDT [facility] Blood VENOUS BLOOD / Unknown Venipuncture / Unknown 05/06/2025 9:19 AM EDT 05/06/2025 9:23 AM EDT us Geo Guallpa MD CHEMISTRY ORDERABLES Final Resul t Performing Organization Address City/[facility]/ZIP Co de Phone Number [facility] [address] [facility], [place] [address] * ECG AND WAVEFORMS - TELEMETRY (05/06/2025 7:00 AM EDT) [facility] ECG INTERPRET Atrial Fib [facility] 05/06/2025 7:00 AM EDT Narrative [facility] - 05/06/2025 8:28 AM EDT ECB - ROUTINE QRS 0.11 See Clinical Report link for waveform capture us Unknown Provider POINT OF CARE CARDIOLOGY Final Result Performing Organization Address City/[facility] Co de Phone Number [facility] [address] [place] [address] * (ABNORMAL) CBC (05/06/2025 5:59 AM EDT) [facility] WBC 4.5 3.7 - 10.3 x10(3)/mcL 05/06/2025 [...] 7:53 AM EDT [facility] MCH 37.3(H) 26.0 - 34.0 pg 05/06/2025 7:53 AM EDT [facility] MCHC 32.6 30.7 - 35.5 g/dL 05/06/2025 7:53 AM EDT [facility] RDW 17.2(H) <=14.9 % 05/06/2025 7:53 AM EDT [facility] Platelet 64(L) 155 - 369 x10(3)/mcL 05/06/2025 7:53 AM EDT [facility] MPV 12.7(H) 8.8 - 12.5 fL 05/06/2025 7:53 AM EDT [facility] Blood VENOUS BLOOD / Unknown Venipuncture / Unknown 05/06/2025 5:59 AM EDT 05/06/2025 7:40 AM EDT us Geo Guallpa MD HEMATOLOGY ORDERABLES Final Resu lt [facility] [address] [facility] , [place] [address] * (ABNORMAL) BASIC METABOLIC PANEL [...] - 10.4 mg/dL 05/06/2025 8:15 AM EDT [facility] Glucose Lvl 103(H) 70 - 99 mg/dL 05/06/2025 8:15 AM EDT [facility] BUN 23 8 - 23 mg/dL 05/06/2025 8:15 AM EDT [facility] Creatinine 0.81 0.51 - 1.30 mg/dL 05/06/2025 8:15 AM EDT [facility] eGFR (CKD-EPIcr 2020) 71 >=60 mL/min/1.7 3 m2 05/06/2025 8:15 AM EDT [facility] Comment:Estimated GFR was ca lculated using the CKD-EPIcr (2020) equation refit without race. The equation is recommended by the National Kidney Foundation - [employer] of Nephrology Task Force. Blood VENOUS BLOOD / Unknown Venipuncture / Unknown 05/06/2025 5:59 AM EDT 05/06/2025 7:40 AM EDT us Geo Guallpa MD CHEMISTRY ORDERABLES Final Resul t [address], [place] [address] * ECG AND WAVEFORMS - TELEMETRY (05/05/2025 10:41 PM EDT) ECG INTERPRET Atrial Fib [facility] 05/05/2025 10:4 1 PM EDT Narrative [facility] - 05/05/2025 10:43 PM EDT ROUTINE/AH QRS 0.08 See Clinical Report link for waveform capture us Unknown Provider POINT OF CARE CARDIOLOGY Final Result [facility] [address] [place] [address] * (ABNORMAL) GLUCOSE METER POC (05/05/2025 11:10 AM EDT) Glucose Meter POC 132(H) 70 - 100 mg/dL 05/05/2025 11:12 AM EDT [facility] Sample Type Capillary 05/05/2025 11:12 AM EDT [facility] Patient Status Non-Critical Patient 05/05/2025 11:12 AM EDT [facility] Blood BLOOD SPECIMEN / Unknown 05/05/2025 11:10 AM EDT 05/05/2025 11:12 AM EDT Marcell Aguirre MD POINT OF CARE TEST ORDERABLES Final Result [facility] [address] [place] [address] * (ABNORMAL) GLUCOSE METER POC (05/05/2025 8:16 AM EDT) Glucose Meter POC 105(H) 70 - 100 mg/dL 05/05/2025 8:17 AM EDT [facility] Sample Type Capillary 05/05/2025 8:17 AM EDT [facility] Patient Status Non-Critical Patient 05/05/2025 8:17 AM EDT [facility] Blood BLOOD SPECIMEN / Unknown 05/05/2025 8:16 AM EDT 05/05/2025 8:17 AM EDT us Marcell Aguirre MD POINT OF CARE TEST ORDERABLES Final Result Performing Organization Address [facility]/ZIP Co de Phone Number [facility] 1 [place] [address] * ECG AND WAVEFORMS - TELEMETRY (05/05/2025 7:00 AM EDT) ECG INTERPRET Sinus Arrythmia [facility] 05/05/2025 7:00 AM EDT Narrative [facility] - 05/05/2025 8:47 AM EDT ROUTINE - KB QRS 0.09 See Clinical Report link for waveform capture us Unknown Provider POINT OF CARE CARDIOLOGY Final Result [facility] [address] [place] [address] * (ABNORMAL) GLUCOSE METER POC (05/04/2025 9:12 PM EDT) Glucose Meter POC 115(H) 70 - 100 mg/dL 05/04/2025 9:14 PM EDT [facility] Sample Type Capillary 05/04/2025 9:14 PM EDT [facility] Patient Status Non-Critical Patient 05/04/2025 9:14 PM EDT [facility] Blood BLOOD SPECIMEN / Unknown 05/04/2025 9:12 PM EDT 05/04/2025 9:14 PM EDT us Marcell Aguirre MD POINT OF CARE TEST ORDERABLES Final Result [facility] [address] [place] [address] * ECG AND WAVEFORMS - TELEMETRY (05/04/2025 7:24 PM EDT) ECG INTERPRET Atrial Fib [facility] 05/04/2025 7:24 PM EDT Narrative [facility] - 05/04/2025 7:26 PM EDT PVC'S-ROUTINE /KD QRS 0.10 See Clinical Report link for waveform capture us Unknown Provider POINT OF CARE CARDIOLOGY Final Result Performing Organization Address City/[facility]/ZIP Co de Phone Number [facility] [address] [place] [address] * ECG AND WAVEFORMS - TELEMETRY (05/04/2025 7:01 PM EDT) ECG INTERPRET Atrial Fib [facility] 05/04/2025 7:01 PM EDT Narrative [facility] - 05/04/2025 8:39 PM EDT ROUTINE (HM) QRS 0.10 See Clinical Report link for waveform capture us Unknown Provider POINT OF CARE CARDIOLOGY Final Result [facility] [address] [place] [address] * (ABNORMAL) GLUCOSE METER POC (05/04/2025 6:53 PM EDT) Glucose Meter POC 120(H) 70 - 100 mg/dL 05/04/2025 6:55 PM EDT [facility] Sample Type Capillary 05/04/2025 6:55 PM EDT [facility] Patient Status Non-Critical Patient 05/04/2025 6:55 PM EDT [facility] Blood BLOOD SPECIMEN / Unknown 05/04/2025 6:53 PM EDT 05/04/2025 6:55 PM EDT Marcell Aguirre MD POINT OF CARE TEST ORDERABLES Final Result Performing Organization Address City/[facility]/ZIP Co de Phone Number [address] [id number] * (ABNORMAL) GLUCOSE METER POC (05/04/2025 5:57 PM EDT) Glucose Meter POC 153(H) 70 - 100 mg/dL 05/04/2025 5:59 PM EDT [facility] Sample Type Capillary 05/04/2025 5:59 PM EDT [facility] Patient Status Non-Critical Patient 05/04/2025 5:59 PM EDT [facility] Blood BLOOD SPECIMEN / Unknown 05/04/2025 5:57 PM EDT 05/04/2025 5:59 PM EDT Marcell Aguirre MD POINT OF CARE TEST ORDERABLES Final Result [address] [id number] * (ABNORMAL) GLUCOSE METER POC (05/04/2025 2:55 PM EDT) Glucose Meter POC 116(H) 70 - 100 mg/dL 05/04/2025 2:56 PM EDT [facility] Sample Type Capillary 05/04/2025 2:56 PM EDT [facility] Patient Status Non-Critical Patient 05/04/2025 2:56 PM EDT [facility] Blood BLOOD SPECIMEN / Unknown 05/04/2025 2:55 PM EDT 05/04/2025 2:56 PM EDT Marcell Aguirre MD POINT OF CARE TEST ORDERABLES Final Result Performing Organization Address City/[facility]/ZIP Co de Phone Number [facility] [address] [place] [address] * ECG AND WAVEFORMS - TELEMETRY (05/04/2025 7:00 AM EDT) ECG INTERPRET Atrial Fib [facility] 05/04/2025 7:00 AM EDT Narrative [facility] - 05/04/2025 8:47 AM EDT RS, ROUTINE, PACS, PVCS QRS 0.08 See Clinical Report link for waveform capture Unknown Provider POINT OF CARE CARDIOLOGY Final Result Performing Organization Address [facility] Co de Phone Number [facility] [address] [place] [address] * (ABNORMAL) GLUCOSE METER POC (05/03/2025 9:54 PM EDT) Glucose Meter POC 175(H) 70 - 100 mg/dL 05/03/2025 9:55 PM EDT [facility] Sample Type Capillary 05/03/2025 9:55 PM EDT [facility] Patient Status Non-Critical Patient 05/03/2025 9:55 PM EDT [facility] Blood BLOOD SPECIMEN / Unknown 05/03/2025 9:54 PM EDT 05/03/2025 9:55 PM EDT Marcell Aguirre MD POINT OF CARE TEST ORDERABLES Final Result Performing Organization Address City/[facility]/ZIP Co de Phone Number [facility] [address] [place] [address] * ECG AND WAVEFORMS - TELEMETRY (05/03/2025 6:59 PM EDT) ECG INTERPRET Sinus Tachycardia [facility] 05/03/2025 6:59 PM EDT Narrative [facility] - 05/03/2025 8:20 PM EDT ROUTINE (CW) QRS 0.06 See Clinical Report link for waveform capture us Unknown Provider POINT OF CARE CARDIOLOGY Final Result Performing Organization Address [facility] Co de Phone Number [facility] [address] [place] [address] * (ABNORMAL) GLUCOSE METER POC (05/03/2025 5:43 PM EDT) Glucose Meter POC 129(H) 70 - 100 mg/dL 05/03/2025 5:45 PM EDT [facility] Sample Type Capillary 05/03/2025 5:45 PM EDT [facility] Patient Status Non-Critical Patient 05/03/2025 5:45 PM EDT [facility] Blood BLOOD SPECIMEN / Unknown 05/03/2025 5:43 PM EDT 05/03/2025 5:45 PM EDT us Marcell Aguirre MD POINT OF CARE TEST ORDERABLES Final Result Performing Organization Address [facility] de Phone Number [facility] [address] [place] [address] * MRI FOOT LEFT WO CONTRAST (05/03/2025 [...] GLUCOSE METER POC (05/03/2025 2:14 PM EDT) [facility] Glucose Meter POC 123(H) 70 - 100 mg/dL 05/03/2025 2:16 PM EDT [facility] Sample Type Capillary 05/03/2025 2:16 PM EDT [facility] Patient Status Non-Critical Patient 05/03/2025 2:16 PM EDT [facility] Blood BLOOD SPECIMEN / Unknown 05/03/2025 2:14 PM EDT 05/03/2025 2:16 PM EDT Marcell Aguirre MD POINT OF CARE TEST ORDERABLES Final Result [facility] [address] [place] [phone] * GLUCOSE METER POC (05/03/2025 10:20 AM EDT) Glucose Meter POC 100 70 - 100 mg/dL 05/03/2025 10:21 AM EDT [facility] Sample Type Capillary 05/03/2025 10:21 AM EDT [facility] Patient Status Non-Critical Patient 05/03/2025 10:21 AM EDT [facility] Blood BLOOD SPECIMEN / Unknown 05/03/2025 10:20 AM EDT 05/03/2025 10:21 AM EDT Marcell Aguirre MD POINT OF CARE TEST ORDERABLES Final Result Performing Organization Address City/[facility]/ZIP Co de Phone Number [facility] [address] [place] [phone] * ECG AND WAVEFORMS - TELEMETRY (05/03/2025 7:55 AM EDT) ECG INTERPRET Atrial Fib [facility] Comment:with PVCs 05/03/2025 7:55 AM EDT Narrative [facility] - 05/03/2025 8:07 AM EDT KW ROUTINE - PVCS QRS 0.09 See Clinical Report link for waveform capture us Unknown Provider POINT OF CARE CARDIOLOGY Final Result [facility] [address] [place], [place] [id number] * HEMOGLOBIN A1C (05/03/2025 6:37 AM EDT) Pathologist [facility] Hgb A1C 5.3 4.2 - 5.6 % 05/05/2025 3:53 PM EDT [facility] [employer] Est. Avg Glucose 105 mg/dL 05/05/2025 3:53 PM EDT [facility] [employer] Blood VENOUS BLOOD / Unknown Venipuncture / Unknown 05/03/2025 6:37 AM EDT 05/03/2025 7:14 AM EDT Narrative [facility] [employer] - 05/05/2025 3:53 PM EDT REFERENCE RANGE: Normal: 4.0-5.6% Pre-diabetes: 5.7-6.4% Provisional diagnosis of diabetes: >6.4% Hgb F>10% and anything which shortens red cell survival, such as hemolytic anemia, or unstable hemoglobin variants such as HbSS, HbSC, or HbCC, will lower the HbA1c value associated with a given level of glycemic control. us Geo Guallpa MD CHEMISTRY ORDERABLES Final Resul t [facility] [employer] [facility] [address] , [place] [address] * (ABNORMAL) CBC (05/03/2025 6:37 AM EDT) Pathologist [facility] WBC 3.5(L) 3.7 - 10.3 x10(3)/mcL 05/03/2025 7:38 AM EDT [facility] RBC 2.19(L) 3.90 - 5.20 x10(6)/mcL 05/03/2025 7:38 AM EDT [facility] Hgb 8.0(L) 11.2 - 15.7 g/dL 05/03/2025 7:38 AM EDT [facility] Hct 25.0(L) 34.0 - 45.0 % 05/03/2025 7:38 AM EDT [facility] MCV 114.2(H) 80.0 - 100.0 fL 05/03/2025 7:38 AM EDT [facility] MCH 36.5(H) 26.0 - 34.0 pg 05/03/2025 7:38 AM EDT [facility] MCHC 32.0 30.7 - 35.5 g/dL 05/03/2025 7:38 AM EDT [facility] RDW 17.7(H) <=14.9 % 05/03/2025 7:38 AM EDT [facility] Platelet 68(L) 155 - 369 x10(3)/mcL 05/03/2025 7:38 AM EDT [facility] MPV 12.3 8.8 - 12.5 fL 05/03/2025 7:38 AM EDT [facility] Blood VENOUS BLOOD / Unknown Venipuncture / Unknown 05/03/2025 6:37 AM EDT 05/03/2025 7:14 AM EDT Rajendra Cade (Alexandre) Malinda ESCOBEDO [facility] NILAM BUTT Final Result [facility] [address] [facility] [facility] [address] , [place] [address] * (ABNORMAL) BASIC METABOLIC PANEL (05/03/2025 6:37 AM EDT) Sodium 137 136 - 145 mmol/L 05/03/2025 8:00 AM EDT [facility] Potassium 4.5 3.5 - 5.0 mmol/L 05/03/2025 8:00 AM EDT [facility] Chloride 105 98 - 107 mmol/L 05/03/2025 8:00 AM EDT [facility] Total CO2 22 22 - 29 mmol/L 05/03/2025 8:00 AM EDT [facility] Anion Gap 10 7 - 16 mmol/L 05/03/2025 8:00 AM EDT [facility] Calcium 8.5(L) 8.8 - 10.4 mg/dL 05/03/2025 8:00 AM EDT [facility] Glucose Lvl 109(H) 70 - 99 mg/dL 05/03/2025 8:00 AM EDT [facility] BUN 23 8 - 23 mg/dL 05/03/2025 8:00 AM EDT [facility] Creatinine 0.89 0.51 - 1.30 mg/dL 05/03/2025 8:00 AM EDT [facility] eGFR (CKD-EPIcr 2020) 63 >=60 mL/min/1.7 3 m2 05/03/2025 8:00 AM EDT [facility] Comment:Estimated GFR was ca lculated using the CKD-EPIcr (2020) equation refit without race. The equation is recommended by the National Kidney Foundation - [place] Society of Nephrology Task Force. Blood VENOUS BLOOD / Unknown Venipuncture / Unknown 05/03/2025 6:37 AM EDT 05/03/2025 7:14 AM EDT us Donnie Kaur MD CHEMISTRY ORDERABLES Final Result Performing Organization Address City/[facility]/ZIP Co de Phone Number [address], [place] [address] * ECG AND WAVEFORMS - TELEMETRY (05/02/2025 11:00 PM EDT) [facility] ECG INTERPRET Atrial Fib [facility] 05/02/2025 11:0 0 PM EDT Narrative [facility] - 05/02/2025 11:23 PM EDT NEW ADMIT (MS) QRS 0.16 See Clinical Report link for waveform capture us Unknown Provider POINT OF CARE CARDIOLOGY Final Result [facility] [address] [place], [place] [id number] * GLUCOSE METER POC (05/02/2025 9:27 PM EDT) Glucose Meter POC 97 70 - 100 mg/dL 05/02/2025 9:29 PM EDT [facility] Sample Type Capillary 05/02/2025 9:29 PM EDT [facility] Patient Status Non-Critical Patient 05/02/2025 9:29 PM EDT [facility] Blood BLOOD SPECIMEN / Unknown 05/02/2025 9:27 PM EDT 05/02/2025 9:29 PM EDT us Marcell Aguirre MD POINT OF CARE TEST ORDERABLES Final Result [facility] [address] [place] [address] * (ABNORMAL) GLUCOSE METER POC (05/02/2025 5:04 PM EDT) Glucose Meter POC 172(H) 70 - 100 mg/dL 05/02/2025 5:05 PM EDT [facility] Sample Type Capillary 05/02/2025 5:05 PM EDT [facility] Patient Status Non-Critical Patient 05/02/2025 5:05 PM EDT [facility] Blood BLOOD SPECIMEN / Unknown 05/02/2025 5:04 PM EDT 05/02/2025 5:05 PM EDT us Marcell Aguirre MD POINT OF CARE TEST ORDERABLES Final Result Performing Organization Address City/[facility]/[place] [address] * (ABNORMAL) GLUCOSE METER POC (05/02/2025 1:03 PM EDT) Glucose Meter POC 110(H) 70 - 100 mg/dL 05/02/2025 1:04 PM EDT [facility] Sample Type Capillary 05/02/2025 1:04 PM EDT [facility] Patient Status Non-Critical Patient 05/02/2025 1:04 PM EDT [facility] Blood BLOOD SPECIMEN / Unknown 05/02/2025 1:03 PM EDT 05/02/2025 1:04 PM EDT us Marcell Aguirre MD POINT OF CARE TEST ORDERABLES Final Result [facility] [address] [address] * [facility] LOWER EXTREMITY ARTERIAL DUPLEX COMPLETE (05/02/2025 11:07 [...] secondary to calcified arterial andino. us Jovanni Montesinos APRN IMG VASCULAR ORDERABLES Fin al Result * [...] Final Result [facility] [address] [facility] , [place] [address] * (ABNORMAL) BASIC METABOLIC PANEL (05/02/2025 8:30 AM EDT) Sodium 137 136 - 145 mmol/L 05/02/2025 9:21 AM EDT [facility] Potassium 3.9 3.5 - 5.0 mmol/L 05/02/2025 9:21 AM EDT [facility] Chloride 104 98 - 107 mmol/L 05/02/2025 9:21 AM EDT [facility] Total CO2 23 22 - 29 mmol/L 05/02/2025 9:21 AM EDT [facility] Anion Gap 10 7 - 16 mmol/L 05/02/2025 9:21 AM EDT [facility] Calcium 8.3(L) 8.8 - 10.4 mg/dL 05/02/2025 9:21 AM EDT [facility] Glucose Lvl 111(H) 70 - 99 mg/dL 05/02/2025 9:21 AM EDT [facility] BUN 27(H) 8 - 23 mg/dL 05/02/2025 9:21 AM EDT [facility] Creatinine 0.96 0.51 - 1.30 mg/dL 05/02/2025 9:21 AM EDT [facility] eGFR (CKD-EPIcr 2020) 58(L) >=60 mL/min/1.7 3 m2 05/02/2025 9:21 AM EDT [facility] Comment:Estimated GFR was ca lculated using the CKD-EPIcr (2020) equation refit without race. The equation is recommended by the National Kidney Foundation - [place] Society of Nephrology Task Force. Blood VENOUS BLOOD / Unknown Venipuncture / Unknown 05/02/2025 8:30 AM EDT 05/02/2025 8:36 AM EDT us Donnie Kaur MD CHEMISTRY ORDERABLES Final Result [facility] [address] [facility] , [place] [address] * ECG AND WAVEFORMS - TELEMETRY (05/02/2025 8:06 AM EDT) ECG INTERPRET Atrial Fib [facility] Comment:Controlled 05/02/2025 8:06 AM EDT Narrative [facility] - 05/02/2025 8:10 AM EDT ROUTINE//AC See Clinical Report link for waveform capture us Unknown Provider POINT OF CARE CARDIOLOGY Final Result Performing Organization Address City/[facility]/ZIP Co de Phone Number [facility] [address] [place] [phone] * (ABNORMAL) GLUCOSE METER POC (05/01/2025 9:05 PM EDT) [facility] Glucose Meter POC 145(H) 70 - 100 mg/dL 05/01/2025 9:07 PM EDT [facility] Sample Type Capillary 05/01/2025 9:07 PM EDT [facility] Patient Status Non-Critical Patient 05/01/2025 9:07 PM EDT [facility] Blood BLOOD SPECIMEN / Unknown 05/01/2025 9:05 PM EDT 05/01/2025 9:07 PM EDT us Marcell Aguirre MD POINT OF CARE TEST ORDERABLES Final Result Performing Organization Address [facility] Co de Phone Number [facility] [address] [place] [address] * ECG AND WAVEFORMS - TELEMETRY (05/01/2025 7:56 PM EDT) ECG INTERPRET Atrial Fib [facility] 05/01/2025 7:56 PM EDT Narrative [facility] - 05/01/2025 7:57 PM EDT ROUTINE/MS QRS 0.09 See Clinical Report link for waveform capture us Unknown Provider POINT OF CARE CARDIOLOGY Final Result Performing Organization Address [facility] Co de Phone Number [facility] [address] [place] [address] * (ABNORMAL) GLUCOSE METER POC (05/01/2025 4:53 PM EDT) Glucose Meter POC 188(H) 70 - 100 mg/dL 05/01/2025 4:55 PM EDT [facility] Sample Type Capillary 05/01/2025 4:55 PM EDT [facility] Patient Status Non-Critical Patient 05/01/2025 4:55 PM EDT [facility] Blood BLOOD SPECIMEN / Unknown 05/01/2025 4:53 PM EDT 05/01/2025 4:55 PM EDT Marcell Aguirre MD POINT OF CARE TEST ORDERABLES Final Result Performing Organization Address City/[facility]/[place] [address] * GLUCOSE METER POC (05/01/2025 11:21 AM EDT) Glucose Meter POC 100 70 - 100 mg/dL 05/01/2025 11:22 AM EDT [facility] Sample Type Capillary 05/01/2025 11:22 AM EDT [facility] Patient Status Non-Critical Patient 05/01/2025 11:22 AM EDT [facility] Blood BLOOD SPECIMEN / Unknown 05/01/2025 11:21 AM EDT 05/01/2025 11:22 AM EDT Marcell Aguirre MD POINT OF CARE TEST ORDERABLES Final Result Performing Organization Address City/[facility]/ZIP Co de Phone Number [address] [address] * (ABNORMAL) GLUCOSE METER POC (05/01/2025 9:10 AM EDT) Glucose Meter POC 101(H) 70 - 100 mg/dL 05/01/2025 9:11 AM EDT [facility] Sample Type Capillary 05/01/2025 9:11 AM EDT [facility] Patient Status Non-Critical Patient 05/01/2025 9:11 AM EDT [facility] Blood BLOOD SPECIMEN / Unknown 05/01/2025 9:10 AM EDT 05/01/2025 9:11 AM EDT Marcell Aguirre MD POINT OF CARE TEST ORDERABLES Final Result Performing Organization Address [facility]/State/ZIP Co de Phone Number [place] [phone] * (ABNORMAL) CBC (05/01/2025 7:57 AM EDT) [...] NILAM BUTT Final Result Performing Organization Address [facility]/ZIP Co de Phone Number [facility] [address] [facility], [place] [address] * ECG AND WAVEFORMS - TELEMETRY (05/01/2025 7:00 AM EDT) ECG INTERPRET Atrial Fib [facility] Comment:controlled 05/01/2025 7:00 AM EDT Narrative [facility] - 05/01/2025 9:27 AM EDT ROUTINE SDP QRS 0.08 QT 0.36 See Clinical Report link for waveform capture us Unknown Provider POINT OF CARE CARDIOLOGY Final Result Performing Organization Address [facility] Co de Phone Number [facility] [address] [place] [address] * (ABNORMAL) BASIC METABOLIC PANEL (05/01/2025 6:21 [...] - 1.30 mg/dL 05/01/2025 6:58 AM EDT [facility] [employer] [facility] eGFR (CKD-EPIcr 2020) 57(L) >=60 mL/min/1.7 3 m2 05/01/2025 6:58 AM EDT [facility] [employer] [facility] Comment:Estimated GFR was ca lculated using the CKD-EPIcr (2020) equation refit without race. The equation is recommended by the National Kidney Foundation - [place] Society of Nephrology Task Force. Blood VENOUS BLOOD / Unknown Venipuncture / Unknown 05/01/2025 6:21 AM EDT 05/01/2025 6:26 AM EDT us Donnie Kaur MD CHEMISTRY ORDERABLES Final Result Performing Organization Address City/[facility] Co de Phone Number [facility] [employer] [address], [place] [address] * ECG AND WAVEFORMS - TELEMETRY (05/01/2025 5:12 AM EDT) ECG INTERPRET Atrial Fib [facility] 05/01/2025 5:12 AM EDT Narrative [facility] - 05/01/2025 5:13 AM EDT W/PVC'S/ROUTINE/JF QRS 0.11 See Clinical Report link for waveform capture us Unknown Provider POINT OF CARE CARDIOLOGY Final Result Performing Organization Address [facility] Co de Phone Number [facility] [address] [place] [address] * ECG AND WAVEFORMS - TELEMETRY (04/30/2025 11:29 PM EDT) ECG INTERPRET Sinus Tachycardia [facility] 04/30/2025 11:2 9 PM EDT Narrative [facility] - 04/30/2025 11:31 PM EDT NEW ADMIT/JF FL 0.11 QRS 0.08 RR 0.47 QT 0.28 QTc 0.41 See Clinical Report link for waveform capture us Unknown Provider POINT OF CARE CARDIOLOGY Final Result Performing Organization Address [facility] Co de Phone Number [facility] [address] [place] [phone] * (ABNORMAL) GLUCOSE METER POC (04/30/2025 10:09 PM EDT) [facility] Glucose Meter POC 117(H) 70 - 100 mg/dL 04/30/2025 10:11 PM EDT [facility] Sample Type Capillary 04/30/2025 10:11 PM EDT [facility] Patient Status Non-Critical Patient 04/30/2025 10:11 PM EDT [facility] Blood BLOOD SPECIMEN / Unknown 04/30/2025 10:09 PM EDT 04/30/2025 10:11 PM EDT us Marcell Aguirre MD POINT OF CARE TEST ORDERABLES Final Result Performing Organization Address [facility]/ZIP Co de Phone Number [facility] [address] [place] [address] * REPEAT LACTIC ACID (04/30/2025 7:30 PM EDT) [facility] Lactic Acid 1.3 0.5 - 1.9 mmol/L 04/30/2025 8:06 PM EDT [facility] Blood VENOUS BLOOD / Unknown Venipuncture / Unknown 04/30/2025 7:30 PM EDT 04/30/2025 7:57 PM EDT us Donnie Kaur MD CHEMISTRY ORDERABLES Final Result [facility] [address] [place] [address] * (ABNORMAL) BLOOD GAS, VENOUS (04/30/2025 5:56 PM EDT) pH Venous 7.39 7.32 - 7.42 pH 04/30/2025 6:05 PM EDT [facility] pCO2 Venous 45 41 - 51 mmHg 04/30/2025 6:05 PM EDT [facility] pO2 Venous <42(H) 25 - 40 mmHg 04/30/2025 6:05 PM EDT [facility] Comment:Interpret with cauti on. Not recommended to evaluate patient's oxygenation status. Base Excess Martín 1.4 mmol/L 6:05 PM EDT [facility] Hco3 Venous 26.3 24.0 - 28.0 mmol/L 04/30/2025 6:05 PM EDT [facility] CO2 Total Martín 24(L) 25 - 29 mmol/L 04/30/2025 6:05 PM EDT [facility] O2 Sat. Venous 20.2(L) 40.0 - 70.0 % 04/30/2025 6:05 PM EDT [facility] Inspired O2 RA 04/30/2025 6:05 PM EDT [facility] Blood VENOUS BLOOD / Unknown Venipuncture / Unknown 04/30/2025 5:56 PM EDT 04/30/2025 6:03 PM EDT Donnie Kaur MD CHEMISTRY ORDERABLES Final Result Performing Organization Address City/[facility]/ZIP Co de Phone Number [address] , [place] [address] * BLOOD CULTURE (NO STAIN) (04/30/2025 5:56 PM EDT) Culture Result No Growth at 120 hours. BLOOD CULTURE (NO STAIN) 05/06/2025 7:00 AM EDT [facility] Blood VENOUS BLOOD / Unknown Venipuncture / Unknown 04/30/2025 5:56 PM EDT 04/30/2025 6:01 PM EDT Donnie Kaur MD MICROBIOLOGY - GENERA L ORDERABLES Final Result Performing Organization Address City/[facility]/ZIP Co de Phone Number [address] , [place] [address] * BLOOD CULTURE (NO STAIN) (04/30/2025 5:56 PM EDT) Culture Result No Growth at 120 hours. BLOOD CULTURE (NO STAIN) 05/06/2025 7:00 AM EDT [facility] Blood VENOUS BLOOD / Unknown Venipuncture / Unknown 04/30/2025 5:56 PM EDT 04/30/2025 6:03 PM EDT us Donnie Kaur MD MICROBIOLOGY - GENERA L ORDERABLES Final Result [facility] [address] [facility] , [place] [address] * XR FOOT LEFT AP LATERAL AND [...] of the ordering clinician. Donnie Kaur MD [facility] ORDERABLES Final Result * XR CHEST AP PORTABLE (04/30/2025 5:32 PM EDT) Anatomical Region Laterality Modality Chest Radiographic Barbie ging 04/30/2025 5:32 PM EDT Impressions 04/30/2025 [...] please contactthe office of the ordering clinician. Result [facility] Donnie Kaur MD [facility] ORDERABLES Final Result * C-REACTIVE PROTEIN (04/30/2025 5:15 PM EDT) CRP <3.00 <=5.00 mg/L 04/30/2025 6:08 PM EDT [facility] Blood VENOUS BLOOD / Unknown Venipuncture / Unknown 04/30/2025 5:15 PM EDT 04/30/2025 5:29 PM EDT Result [facility] Donnie Kaur MD CHEMISTRY ORDERABLES Final Result Performing Organization Address City/[facility]/ZIP Co de Phone Number [facility] [address] , [place] [address] * SEDIMENTATION RATE AUTOMATED (04/30/2025 5:15 PM EDT) Sed Rate 9 0 - 30 mm/hr 04/30/2025 5:42 PM EDT [facility] Blood VENOUS BLOOD / Unknown Venipuncture / Unknown 04/30/2025 5:15 PM EDT 04/30/2025 5:29 PM EDT Donnie Kaur MD HEMATOLOGY ORDERABLES Final Result Performing Organization Address [facility] de Phone Number [facility] [employer] [address] [place] [address] , [place] [address] * PROCALCITONIN (04/30/2025 5:15 PM EDT) Procalcitonin <0.05 <=0.49 ng/mL 04/30/2025 6:15 PM EDT [facility] Blood VENOUS BLOOD / Unknown Venipuncture / Unknown 04/30/2025 5:15 PM EDT 04/30/2025 5:29 PM EDT Narrative [facility] - 04/30/2025 6:15 PM EDT Procalcitonin <0.50 [...] CHEMISTRY ORDERABLES Final Result Performing Organization Address [facility] Co de Phone Number [facility] [address] [facility], [place] [address] * (ABNORMAL) LACTIC ACID (04/30/2025 5:15 PM EDT) Pathologist [facility] Lactic Acid 2.3(H) 0.5 - 1.9 mmol/L 04/30/2025 5:39 PM EDT [facility] Blood VENOUS BLOOD / Unknown Venipuncture / Unknown 04/30/2025 5:15 PM EDT 04/30/2025 5:25 PM EDT oDnnie Kaur MD CHEMISTRY ORDERABLES Final Result Performing Organization Address [facility] de Phone Number [address] [address] * (ABNORMAL) COMPREHENSIVE METABOLIC PANEL (04/30/2025 5:15 PM EDT) Pathologist [facility] Sodium 136 136 - 145 mmol/L 04/30/2025 5:43 PM EDT [facility] Potassium 4.1 3.5 - 5.0 mmol/L 04/30/2025 5:43 PM EDT [facility] Chloride 101 98 - 107 mmol/L 04/30/2025 5:43 PM EDT [facility] Total CO2 21(L) 22 - 29 mmol/L 04/30/2025 5:43 PM EDT [facility] Anion Gap 14 7 - 16 mmol/L 04/30/2025 5:43 PM EDT [facility] Calcium 8.6(L) 8.8 - 10.4 mg/dL 04/30/2025 5:43 PM EDT [facility] Glucose Lvl 119(H) 70 - 99 mg/dL 04/30/2025 5:43 PM EDT [facility] BUN 36(H) 8 - 23 mg/dL 04/30/2025 5:43 PM EDT [facility] Creatinine 1.05 0.51 - 1.30 mg/dL 04/30/2025 5:43 PM EDT [facility] Albumin 3.9 3.2 - 4.6 gm/dL 04/30/2025 5:43 PM EDT [facility] Total Protein 7.5 6.4 - 8.3 gm/dL 04/30/2025 5:43 PM EDT [facility] Bili Total 0.7 0.2 - 1.3 mg/dL 04/30/2025 5:43 PM EDT [facility] ALT 16 <=41 U/L 04/30/2025 5:43 PM EDT [facility] AST 18 <=40 U/L 04/30/2025 5:43 PM EDT [facility] Alk Phos 96 36 - 123 U/L 04/30/2025 5:43 PM EDT [facility] eGFR (CKD-EPIcr 2020) 52(L) >=60 mL/min/1.7 3 m2 04/30/2025 5:43 PM EDT [facility] Comment:Estimated GFR was ca lculated using the CKD-EPIcr (2020) equation refit without race. The equation is recommended by the National Kidney Foundation - [place] [employer] of Nephrology Task Force. Blood VENOUS BLOOD / Unknown Venipuncture / Unknown 04/30/2025 5:15 PM EDT 04/30/2025 5:25 PM EDT us Donnie Kaur MD CHEMISTRY ORDERABLES Final Result [facility] [address] [place] [address] * (ABNORMAL) CBC WITH DIFF (04/30/2025 5:15 PM EDT) WBC 5.1 3.7 - 10.3 x10(3)/mcL 04/30/2025 5:29 PM EDT [facility] RBC 2.64(L) 3.90 - 5.20 x10(6)/mcL 04/30/2025 5:29 PM EDT [facility] Hgb 10.0(L) 11.2 - 15.7 g/dL 04/30/2025 5:29 PM EDT [facility] Hct 30.5(L) 34.0 - 45.0 % 04/30/2025 5:29 PM EDT [facility] MCV 115.5(H) 80.0 - 100.0 fL 04/30/2025 5:29 PM EDT [facility] MCH 37.9(H) 26.0 - 34.0 pg 04/30/2025 5:29 PM EDT [facility] MCHC 32.8 30.7 - 35.5 g/dL 04/30/2025 5:29 PM EDT [facility] RDW 17.6(H) <=14.9 % 04/30/2025 5:29 PM EDT [facility] Platelet 108(L) 155 - 369 x10(3)/mcL 04/30/2025 5:29 PM EDT [facility] MPV 12.3 8.8 - 12.5 fL 04/30/2025 5:29 PM EDT [facility] Neut Percent 56.9 % 04/30/2025 5:29 PM EDT [facility] Comment:Neutrophils equals s egs plus bands Imm Gran% 0.4 % 04/30/2025 5:29 PM EDT [facility] Comment:Automated count of m etamyelocytes, myelocytes and promyelocytes. Lymph Percent 33.9 % 04/30/2025 5:29 PM EDT [facility] [place] Percent 8.6 % 04/30/2025 5:29 PM EDT [facility] Eos Percent 0.0 % 04/30/2025 5:29 PM EDT [facility] Baso Percent 0.2 % 04/30/2025 5:29 PM EDT [facility] Neut # 2.9 1.6 - 6.1 x10(3)/mcL 04/30/2025 5:29 PM EDT [facility] Comment:Neutrophils equals s egs plus bands IMMGRAN# 0.0 0.0 - 0.1 x10(3)/[facility] 04/30/2025 5:29 PM EDT [facility] Comment:Automated count of m etamyelocytes, myelocytes and promyelocytes. An absolute IG <0.1 is reported as 0.0. Lymph # 1.7 1.2 - 3.9 x10(3)/mcL 04/30/2025 5:29 PM EDT [facility] [place] # 0.4 0.3 - 0.9 x10(3)/[facility] 04/30/2025 5:29 PM EDT [facility] Eos# 0.0 0.0 - 0.5 x10(3)/[facility] 04/30/2025 5:29 PM EDT [facility] Baso # 0.0 0.0 - 0.1 x10(3)/[facility] 04/30/2025 5:29 PM EDT [facility] Blood VENOUS BLOOD / Unknown Venipuncture / Unknown 04/30/2025 5:15 PM EDT 04/30/2025 5:25 PM EDT us Donnie Kaur MD HEMATOLOGY ORDERABLES Final Result [facility] [address] [place] [address] * EK EKG 12 LEAD (04/30/2025 4:18 PM EDT) Anatomical Region Laterality Modality Electrocardiogra phy 04/30/2025 4:28 PM EDT Impressions 04/30/2025 10:[address] 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1940 Requested By: DONNIE PLUMMER Order Number: [id number] Reading MD: Isidro Kennedy Measurements Intervals [place] Rate: 134 P: 203 FL: 145 QRS: -6 QRSD: 93 T: -78 QT: 333 QTc: 499 Interpretive Statements SINUS TACHYCARDIA NONSPECIFIC ST & T-WAVE ABNORMALITY Electronically Signed On 04-30-2025 22:14:02 EDT by Isidro Kennedy Narrative Procedure Note Isidro Kennedy MD - 04/30/2025 MICHELINE Stover Test Date: 2025-04-30 Pat Name: SKYLER BAUTISTA Department: DEPID Room: [facility] Gender: Female 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1940 Requested By: DONNIE ARRIOLA Order Number: [id number] Reading MD: Isidro Kennedy Measurements Intervals [place] Rate: 134 P: 203 FL: 145 QRS: -6 QRSD: 93 T: -78 [...] chronic kidney disease (HCC) 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 Coronary atherosclerosis of [place] coronary artery Type 2 diabetes mellitus, without [...] from all sources in 24 hours., Pre-op ([facility] Meds) Given 05/19/2025 12:42 AM EDT 1,000 [...] NIGHTLY, First dose (after last modification) on Tue05/23/25 at 2230, Until Discontinued Given 05/25/2025 8:58 [...] For administration during pre-op peripheral block, Pre-op ([facility] Meds) Given 05/24/2025 7:46 AM EDT 30 [...] PM EDT 0.5 mg HYDROmorphone 0.2 mg/mL TRACK MACHINE OPERATOR REPAIRER syringe - 30 mL Intravenous, TITRATED, Starting on Tue05/28/25 at 0800, Until Tue05/28/25 at 1828, If no running IV refer to ACLIN-N-[address] the KVO panel. This infusion requires the use of portless tubing and an IV pole lock box. Lock Code for Program Changes: 2468, Mode: TRACK MACHINE OPERATOR REPAIRER + Continuous, Hydromorphone TRACK MACHINE OPERATOR REPAIRER Dose (mg): 0.1, TRACK MACHINE OPERATOR REPAIRER Lockout Time (minutes): 6, Hydromorphone 4 Hour Dose Limit (mg): 4, Hydromorphone Continuous (basal) Rate (mg/hr): 0.2 mg/hr New Bag 05/28/2025 10:23 AM EDT HYDROmorphone 0.2 mg/mL TRACK MACHINE OPERATOR REPAIRER syringe - 30 mL Intravenous, TITRATED, Starting on Tue05/28/25 at 1830, Until Tue05/29/25 at 1123, If no running IV refer to ACLIN-N-[address] the KVO panel. This infusion requires the use of portless tubing and an IV pole lock box. Lock Code for Program Changes: 2468, Mode: TRACK MACHINE OPERATOR REPAIRER, Hydromorphone TRACK MACHINE OPERATOR REPAIRER Dose (mg): 0.1, TRACK MACHINE OPERATOR REPAIRER Lockout Time (minutes): 6, Hydromorphone 4 Hour [...] 02/04/2025 06/10/2025 nalOXone (NARCAN) 4 mg/actuation Nasl [place], Non-Aerosol 0.1 mL by Nasal route as needed for Opioid Reversal. [place] the contents of one device (0.1mL) into [...] RN) 0932 (Given - Provider: Shannon Owens RN)174 (Given - Provider: Shannon Owens RN) [...] Owens RN) 0903 (Given - Provider: Marisa Garrett RN) gabapentin [...] Owens RN) 0906 (Given - Provider: Marisa Garrett, MAHENDRA) latanoprost (XALATAN) 0.005 % ophthalmic solution 1 [...] dose on Tue07/18/25 at 0900, Application site: [facility] area 905 (Given - Provider: Diony Valdez, MAHENDRA)2032 (Given - Provider: Binta Mcdowell, RN) 0932 (Given - Provider: Shannon Owens, MAHENDRA)2038 (Given - Provider: Dylan Chowdhury, MAHENDRA) 0905 (Given - Provider: Marisa Garrett, RN) nortriptyline (PAMELOR) capsule 10 mg 10 mg, Oral, NIGHTLY, First dose on Tue06/05/25 at 2100, Until Discontinued 2026 (Given - Provider: Binta Mcdowell RN) 2035 (Given - Provider: Dylan Chowdhury, MAHENDRA) pantoprazole (PROTONIX) tablet 40 mg(Linked Group 1) 40 mg, Oral, 2 TIMES DAILY, First dose on Tue05/31/25 at 2100, Until Discontinued, Do not crush or chew 905 (Given - Provider: Diony Valdez RN)2026 (Given - Provider: Binta Mcdowell RN) 0932 (Given - Provider: Shannon Owens, MAHENDRA)2036 (Given - Provider: Dylan Chowdhury, MAHENDRA) 0903 (Given - Provider: Marisa Garrett, MAHENDRA) ranolazine (RANEXA) SR tablet 1,000 mg 1,000 mg, Oral, DAILY, First dose on Tue05/01/25 at 0900, Until Discontinued, Do Not Crush 905 (Given - Provider: Diony Valdez RN) 0932 (Given - Provider: Shannon Owens RN) 0903 (Given - Provider: Marisa Garrett, MAHENDRA) PRN Medication Order 06/08/2025 06/09/2025 06/10/2025 [...] 24 hours. 0445 (Given - Provider: Amna Ferris, RN)1248 (Given - Provider: Diony Valdez, MAHENDRA) [...] Shannon Owens, MAHENDRA)1754 (Given - Provider: Shannon Owens RN) 0459 (Given - Provider: Dylan Chowdhury, MAHENDRA)0904 [...] injection 0-40 Units 1 05/26/2025 Insulin Calculator (CUSTOMER SERVICE AGENT) - FSBS (Correction Only) Input 1 05/26/2025 [...] documented as of this encounter Care Teams Block Captain Relationship Specialty Start Date End Date No Pcp, Per Patient PCP - General 06/04/24 documented as of this encounter
--- OUTSIDE RECORDS SUMMARY | 2025-06-12 20:28 | XMS_ITS | Encounter Summary ---
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 Name Role Phone No Pcp, Per Patient Primary Care Provider Evelyne prabhakar Reason for Visit * Reason Comments Altered Mental Status Encounter Details Date Type Department Care Team (Late st Contact Info) Description 06/12/2025 8:28 PM EDT - 06/12/2025 11:17 PM EDT Emergency [facility] [address] [place] [address] Rhina Gooden, DO [address] [facility] [place] [address] Acute UTI (Primary Dx) Discharge Disposition: Nursing Facility Social History Tobacco Use Types Packs/Day Years Used Date Smoking Tobacco: Former Cigarettes Q uit: 1991 Passive Smoke Exposure: Past Smokeless Tobacco: Never Alcohol Use Standard Drinks/Week Comments Not Currently 0 (1 standard drink = 0.6 oz pur e alcohol) [facility] Utilities Answer Date Recorded In the past 12 months has [employer], gas, oil, or water company threatened to shut off services in your home? No 05/01/2025 Overall Financial Resource Strain (CARDIA) Answe r Date Recorded How hard is it for you to pa y for the very basics like food, housing, medical care, and heating? Not hard at all 05/01/2025 PHQ-2 Answer Date Recorded PHQ-2 Total Score 0 05/01/2025 [facility] - Occupational Stress Questionnaire Answer Date Recorded [...] money to get more. Never true 05/01/2025 [facility] IP Transportation Answer D ate [...] Sign Reading Time Taken Comments Blood Pressure 147/80 06/12/2025 8:24 PM EDT Pulse 102 06/12/2025 8:23 PM EDT Temperature 36.7 C (98.1 F) 06/12/2025 8:24 PM EDT Respiratory Rate 18 06/12/2025 8:24 PM EDT Oxygen Saturation 93% 06/12/2025 8:24 PM EDT Inhaled Oxygen Concentration - - Weight 57.2 kg (126 lb) 06/12/2025 8:24 PM EDT Height 157.5 cm (5' 2 ) 06/12/2025 8:24 PM EDT Body Mass Index 23.05 06/12/2025 8:24 PM EDT documented in this encounter Functional Status * Suicide Severity Rating Answer Date of Assessment Author No Risk 06/12/2025 8:25 PM EDT Barb Cason RN * [place] Suicide Severity Rating Scale (Q shift for moderate and high) Question Answer Date of Assessment Author 1. In the past month, have you wished you were or wished you could go to sleep and not wake up? 0 06/12/2025 8:25 PM EDT Renae Cason RN 2. In the past month, have you actually had any thoughts of killing yourself? (If no, skip to question 6) 0 06/12/2025 8:25 PM EDT Renae Cason RN 6. Have you ever done anything, started to do anything, or prepared to do anything to end your life? 0 06/12/2025 8:25 PM EDT Mini Cason RN documented as of this encounter Discharge Instructions * Attachments The following attachments cannot be sent through Care Everywhere. * Urinary tract infection ??? Discharge instructions ([place]icar[place]uan) documented in this encounter Medications at Time [...] Patch 06/11/2025 nalOXone (NARCAN) 4 mg/actuation Nasl Goldonna, Non-Aerosol 0.1 mL by Nasal route as needed for Opioid Reversal. Goldonna the contents of one device (0.1mL) into [...] for 3 days. 3 Tablet 06/10/2025 5 carvediloL (COREG) 25 mg Oral Tablet Take 1 Tablet by mouth 2 times daily (with meals). 60 Tablet 06/10/2025 5 cephALEXin (KEFLEX) 500 mg Oral Capsule Take 1 Capsule by mouth every 6 hours for 10 days. 40 Capsule 06/12/2025 5 fUROsemide (LASIX) 40 mg Oral Tablet Take 1 Tablet by mouth daily as needed for Other (edema, SOB). 30 Tablet 06/10/2025 5 gabapentin (NEURONTIN) 300 mg Oral Capsule Take 300 mg by mouth daily. Give 1 capsule by mouth one time a day for POLYNEUROPATHY 06/11/2025 5 gabapentin (NEURONTIN) 300 mg Oral CapsuleIndicati ons:Left foot pain Take 1 Capsule by mouth nightly for 3 days. 3 Capsule 06/10/2025 5 oxyCODONE (ROXICODONE) 5 mg Oral Tablet Take 1-2 Tablets by mouth every 4 hours as needed for Acute Pain (R52). 12 Tablet 06/10/2025 5 senna (SENOKOT) 8.6 mg Oral Tablet Take 2 Tablets by mouth nightly for 7 days. 14 Tablet 06/12/2025 5 documented as of this encounter Ordered Prescriptions Prescription Sig Dispense Quantity Refills Last Filled Start Date End Date senna (SENOKOT) 8.6 mg Oral Tablet Take 2 Tablets by mouth nightly for 7 days. 14 Tablet 06/12/2025 5 cephALEXin (KEFLEX) 500 mg Oral Capsule Take 1 Capsule by mouth every 6 hours for 10 days. 40 Capsule 06/12/2025 5 documented in this encounter Discharge Disposition Disposition Code Departure Means Destination Comment s Nursing Facility [facility] documented in this encounter ED Notes * Gricelda Fernandes, MAHENDRA - 06/12/2025 11:13 PM EDT An After Visit Summary was printed, and reviewed with family. AVS and printed rx given to the [facility] team. [facility] present to take patient back to [facility]. * Renae Cason RN - 06/12/2025 10:57 PM EDT Report given to RN at [facility] * Rhina Gooden DO - 06/12/2025 8:22 PM EDT I, Gaye Bess, Medical Student, saw this patient with my attending, RHINA GOODEN, and participated in the documentation in this note. CHIEF COMPLAINT Chief Complaint Patient presents with Altered Mental Status HPI Miladis Montoya is a 84 y.o. 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 The patient was somnolent and inconsistently responded to verbal cues and questions. She was able to state where she was, the year, and the AKA procedure thatshe recently received on 05/24. Most of the patient's history was obtained from her niece (Michelle) who stated that the patient was very confused when she went to visit her at rehab today. She initially did not recognize Michelle and was extremely drowsy. Michelle reports that the patient fell last night when she a ttempted to use the restroom and forgot that she had an AKA. The patient reports that everything hurts. Michelle reports that the nurses at the rehab facility were not comfortable giving pain meds because Miladis did not seem like herself and was very out of it. Michelle states that Miladis has had significantpain since her AKA and has been taking oxycodone for pain. She also states that she has a history of UTIs and has not urinated much. The nurses at the rehab facility reported that Miladis urinated this morning. When patient was asked about pain with urination she states that she has had burning with urination. Miladis has been in rehab for 2 days and was discharged from the hospital on 06/10/2025. REVIEW OF SYSTEMS General: seems more tired than normal per niece (Michelle) Neuro: confused and drifting in and out of consciousness per niece (Michelle) Abdomen: suprapubic tenderness per patient : has not peed much in the past few days, burning with urination this morning per niece (Michelle) Musculoskeletal: left leg pain since AKA on 05/24 per niece (Michelle) See HPI for further details. Review of systems otherwise negative. PAST MEDICAL HISTORY Past Medical History: Diagnosis Date A-fib ([facility]) Arthritis Blood circulation, collateral CAD (coronary artery disease) Cardiac dysrhythmia Carotid artery occlusion CHF (congestive heart failure) ([facility]) Diabetes mellitus ([facility]) not currently on meds,rehab discontued Difficult intravenous [...] years ago. Urinary incontinence Urinary tract infection FAMILY HISTORY No family history on file. [...] true Transportation Needs: No Transportation Needs (05/01/2025) [facility] IP Transportation In the past 12 months, has lack of reliable transportation kept you from medical appointments, meetings, work or from getting things needed for daily living?: No Physical Activity: Inactive (05/01/2025) Exercise Vital Sign Days of Exercise per Week: 0 days Minutes of Exercise per Session: 0 min Stress: No Stress Concern Present (05/01/2025) [facility] - Occupational Stress Questionnaire Feeling of Stress : Not at all Received from [facility] ([place], [place], [place], [place]) Family and Community Support Intimate Partner Violence: Not At Risk (08/06/2024) Received from [facility] Humiliation, Afraid, Rape, and Kick questionnaire Fear of Current or Ex-Partner: No Emotionally Abused: No Physically Abused: No Sexually Abused: No Housing Stability: Low Risk (08/06/2024) Received from [facility] Housing Stability Vital Sign Unable to Pay for Housing in the Last Year: No Number of Places Lived in the Last Year: 1 Unstable Housing in the Last Year: No SURGICAL HISTORY Past Surgical History: Procedure Laterality Date ABDOMEN SURGERY ABOVE KNEE AMPUTATION Left 05/24/2025 Left Above Knee Amputation; Surgeon: Vargas Wolf MD; Location: ED MAIN OR; Service: Vascular CARDIAC CATHETERIZATION CARDIAC SURGERY CABG/stents FOOT SURGERY Left 03/09/2025 Transmetatarsal amputation of the left foot; Surgeon: Dacia Mills DPM; Location: ED MAIN OR; Service: Podiatry FOOT SURGERY Left 03/17/2025 left transmetatarsal amputation revision; Surgeon: Irineo Perez DPM; Location: [facility] MAIN OR; Service: Podiatry HYSTERECTOMY IR ABDOMINAL AORTOGRAM SERIALOGRAM 05/10/2025 IR ABDOMINAL AORTOGRAM SERIALOGRAM 05/10/2025 Vargas Wolf MD [facility] IR IR ANGIOGRAM EXTREMITY LEFT 01/30/2025 IR ANGIOGRAM EXTREMITY LEFT 01/30/2025 Vargas Wolf MD [facility] IR ANGIOGRAM FEMORAL ARTERIO SHIFT 01/17/2025 IR ANGIOGRAM FEMORAL ARTERIO SHIFT 01/17/2025 Vargas Wolf MD [facility] IR ANGIOGRAM FEMORAL ARTERIO SHIFT 05/10/2025 IR ANGIOGRAM FEMORAL ARTERIO SHIFT 05/10/2025 Vargas Wolf MD [facility] IR REVAS FEM POP ART UNILAT W HOME CARE SPECIALIST 01/30/2025 IR REVAS FEM POP ART UNILAT W HOME CARE SPECIALIST 01/30/2025 Vargas Wolf MD [facility] IR ULTRASOUND GUIDED VASCULAR ACCESS 01/17/2025 IR ULTRASOUND GUIDED VASCULAR ACCESS 01/17/2025 Vargas Wolf MD [facility] IR ULTRASOUND GUIDED VASCULAR ACCESS 01/30/2025 IR ULTRASOUND GUIDED VASCULAR ACCESS 01/30/2025 Vargas Wolf MD [facility] IR ULTRASOUND GUIDED VASCULAR ACCESS 05/10/2025 IR ULTRASOUND GUIDED VASCULAR ACCESS 05/10/2025 Vargas Wolf MD [facility] IR JOINT REPLACEMENT TOE SURGERY Left 01/31/2025 Left foot hallux amputation; Surgeon: Dacia Mills DPM; Location: [facility] MAIN OR; Service: Podiatry CURRENT MEDICATIONS No current facility-administered medications for this encounter. Current Outpatient Medications: acetaminophen (TYLENOL) 500 mg Oral Tablet, Take 1,000 mg by mouth every 8 hours., Disp: , Rfl: ALPRAZolam (XANAX) 0.5 mg Oral Tablet, Take 1 Tablet by mouth daily for 3 days., Disp: 3 Tablet, Rfl: 0 atorvastatin (LIPITOR) 40 mg Oral Tablet, Take 40 mg by mouth nightly., Disp: , Rfl: Calcium Carbonate (ANTACID ULTRA STRENGTH) 400 mg calcium (1,000 mg) Oral Tablet, Chewable, Take 1,000 mg by mouth daily., Disp: , Rfl: carvediloL (COREG) 25 mg Oral Tablet, Take 1 Tablet by mouth 2 times daily (with meals)., Disp: 60 Tablet, Rfl: 0 cyanocobalamin 1,000 mcg Oral Tablet, Take 1,000 mcg by mouth daily., Disp: , Rfl: fUROsemide (LASIX) 40 mg Oral Tablet, Take 1 Tablet by mouth daily as needed for Other (edema, SOB)., Disp: 30 Tablet, Rfl: 0 gabapentin (NEURONTIN) 300 mg Oral Capsule, Take 1 Capsule by mouth nightly for 3 days., Disp: 3 Capsule, Rfl: 0 latanoprost (XALATAN) 0.005 % Opht Drops, Apply 1 Drop to eye nightly., Disp: 2.5 mL, Rfl: 0 lidocaine (ASPERCREME) 4 % Top Adhesive Patch, Medicated, Place 1 Patch onto the skin daily., Disp:15 Patch, Rfl: 0 nalOXone (NARCAN) 4 mg/actuation Nasl Goldonna, Non-Aerosol, 0.1 mL by Nasal route as needed for Opioid Reversal. Goldonna the contents of one device (0.1mL) into one nostril upon signs of opioid overdose.Call 911. May repeat dose in other nostril if no response within 2-3 minutes., Disp: 1 Each, Rfl: 0 nortriptyline (PAMELOR) 10 mg Oral Capsule, Take 1 Capsule by mouth nightly., Disp: 15 Capsule, Rfl: 0 oxyCODONE (ROXICODONE) 5 mg Oral Tablet, Take 1-2 Tablets by mouth every 4 hours as needed for Acute Pain (R52)., Disp: 12 Tablet, Rfl: 0 pantoprazole (PROTONIX) 40 mg Oral Tablet, Delayed Release (E.C.), Take 1 Tablet by mouth 2 times daily., Disp: 60 Tablet, Rfl: 0 polyethylene glycol (GLYCOLAX, MIRALAX) 17 gram Oral Powder in Packet, Take 17 g by mouth daily., Disp: , Rfl: ranolazine (RANEXA) 500 mg Oral Tablet Sustained Release 12 hr, Take 1,000 mg by mouth daily., Disp: , Rfl: ALLERGIES Allergies Allergen Reactions Lidocaine Rash PHYSICAL EXAM ED Triage Vitals Temp 06/12/252023 98.1 ??F (36.7 ??C) Pulse 06/12/252022 102 Resp 06/12/252023 18 BP 06/12/252023 (!) 147/80 SpO2 06/12/252023 93 % Height 06/12/252023 5' 2 (1.575 m) Weight 06/12/252023 126 lb (57.2 kg) refer to nursing notes for most recent vital signs Constitutional: ill-appearing, but no acute distress HENT: atraumatic, normocephalic. Neck: supple, normal ROM Cardiovascular: tachycardic, no murmurs or gallops auscultated. Thorax & Lungs: CTA bilaterally. Abdomen: suprapubic tenderness on palpation. Extremities: left above the knee amputation, noelle present, incision dry without drainage or dehiscence. Neurologic: AAO x 3 to person, place and time. Somnolent and drifting in and out of consciousness. LABS/RADIOLOGY/PROCEDURES Labs Reviewed CBC WITH DIFF - Abnormal Result Value WBC 3.1 (*) RBC 2.30 (*) Hgb 8.4 (*) Hct 24.7 (*) MCV 107.4 (*) MCH 36.5 (*) MCHC 34.0 RDW 19.9 (*) Platelet 103 (*) MPV 12.9 (*) Neut Percent 58.2 Imm Gran% 0.3 Lymph Percent 31.6 [place] Percent 9.6 Eos Percent 0.0 Baso Percent 0.3 Neut # 1.8 IMMGRAN# 0.0 Lymph # 1.0 (*) [place] # 0.3 Eos# 0.0 Baso # 0.0 COMPREHENSIVE METABOLIC PANEL - Abnormal Sodium 138 Potassium 4.2 Chloride 106 Total CO2 23 Anion Gap 9 Calcium 9.5 Glucose Lvl 126 (*) BUN 25 (*) Creatinine 0.95 Albumin 3.6 Total Protein 6.7 Bili Total 0.9 ALT 19 AST 34 Alk Phos 181 (*) eGFR (CKD-EPIcr 2020) 58 (*) BLOOD GAS, VENOUS - Abnormal pH Venous 7.38 pCO2 Venous 40 (*) pO2 Venous 42 (*) Base Excess Martín -1.3 Hco3 Venous 23.7 (*) CO2 Total Martín 23 (*) O2 Sat. Venous 73.9 (*) Inspired O2 RA URINALYSIS REFLEX - Abnormal UA Color Yellow UA Appear Cloudy (*) UA Glucose Negative UA Ketones Negative UA Blood Negative UA pH 6.0 UA Protein Trace (10-20 mg/dL) UA Urobilinogen Normal UA Bili Negative UA Nitrite Negative UA Leuk Est 4+ (500 Ion/mcl) (*) UA Spec Grav 1.015 UA WBC >182 (*) UA RBC 1 UA Squam Epi 4+ UA Bacteria 1+ (*) UA Trans Epi <1 (*) LACTIC ACID - Normal Lactic Acid 1.2 AMMONIA LEVEL - Normal Ammonia 15 URINE CULTURE (NO STAIN) UA W/REFLEX TO CULTURE Narrative: The following orders were created for panel order UA W/REFLEX TO CULTURE. Procedure Abnormality Status --------- ------ URINALYSIS REFLEX[[id number]] Abnormal Final result EXTRA HUITRON URINE CX[[id number]] In process Please view results for these tests on the individual orders. CT CERVICAL SPINE WO CONTRAST Final Result CT CERVICAL SPINE WITHOUT CONTRAST, 06/12/2025 10:02 PM CLINICAL HISTORY: -fall. COMPARISON: February 17, 2025 PROCEDURE COMMENTS: Multidetector CT of the cervical spine with multiplanar reformatting per protocol. Dose 1 : CT DLP Total : 1614.24 mGycm DLP Spiral Max : 809.13 mGycm Maximum CTDI Vol : 45.46 mGy FINDINGS: Advanced degenerative changes of the cervical spine. Degenerative changes including calcifications at C1/C2 suggesting CPPD, stable compared with prior imaging. No evidence of acute fracture or traumatic malalignment. Prevertebral soft tissues do not appear thickened. Prominent carotid bulb calcifications are present. Bilateral pleural effusions are partially imaged. Lung apices are emphysematous. IMPRESSION: * No acute bony abnormality of the cervical spine. * Bilateral pleural effusions. - Note: Radiology results need to be interpreted within a comprehensive clinical context. If you have questions about the radiology report, please contact the office of the ordering clinician. CT HEAD WO CONTRAST Final Result CT HEAD WO CONTRAST 06/12/2025 10:01 PM CLINICAL HISTORY: -fall. COMPARISON: February 17, 2025 PROCEDURE COMMENTS: Routine noncontrast head CT with multiplanar reconstructions. Dose 1 : CT DLP Total : 1614.24 mGycm DLP Spiral Max : 809.13 mGycm Maximum CTDI Vol : 45.46 mGy FINDINGS: Stable background of atrophy and manifestations of prior chronic small vessel ischemic change. No evidence of superimposed acute stroke, hemorrhage, or developing mass lesion. No visible acute calvarial or skull base fracture. Sinus inflammatory changes are present including air-fluid level in the RIGHT sphenoid cellule. Tympanomastoid cavities are clear. There has been prior cataract surgery. IMPRESSION: * No acute intracranial abnormality. * Acute sphenoid sinusitis. - Note: Radiology results need to be interpreted within a comprehensive clinical context. If you have questions about the radiology report, please contact the office of the ordering clinician. No orders to display COURSE & MEDICAL DECISION MAKING Pertinent Labs & Imaging studies reviewed. (See chart for details) MDM Patient was seen in the emergency department and evaluated for the chief complaint as described in history of present illness. Complete history and physical were performed. Patient's presenting symptoms, physical exam, and diagnostic evaluation are consistent with Urinary Tract Infection. Given recent fall and head trauma, non-contrast CT of the head and non-contrast CT of Cervical Spine were ordered. No acute intracranial abnormality on head CT, acute sphenoid sinusitis noted. No acute bony abnormality of the cervical spine, bilateral pleural effusions present. Bilateral pleural effusions were present during recent admission and are not causing any significant respiratory distress (SpO2 93% on RA, RR 18). Ammonia level was checked -- normal (15). Lactic Acid level was checked -- normal (1.2). VBG was ordered given altered mental status and history of respiratory failure with metabolic encephalopathy -- pH normal (7.38) and pCO2 slightly low (40) likely due to increased respi ratory rate from acute pain. CBC and CMP were ordered. CBC is at baseline with low WBC (3.1), low Hgb (8.4), low platelets (103). CMP showed elevated BUN (25), Cr normal (0.95) and eGFR at baseline (58). Alk phos elevated (181), increased from 159 from 2 days ago. Patient was given IV Morphine for acute pain management, last dose of oxycodone reported to be 4 am, pain meds withheld after patient was confused at the rehab facility. Patient reported no pain relief following 4 mg IV morphine. 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 UA and culture were ordered. UA demonstrated 4+ Leukocyte Esterase, >182 WBCs, 1+ Bacteria. Urine culture from 06/09 grew Klebsiella, E. coli and Proteus. Patient started on IV Rocephin for UTI. Patient is oriented and speaking with family members and medical team. She was informed of discharge plan and diagnosis of UTI. Patient discharged on Keflex and transported back to [facility]. Patient was educated on importance of maintaining bowel movements with immobility, history of recurrent UTIsand current pain medicine regimen. She is advised to continue polyethylene glycol (Miralax), senna and colase were added in ED (06/12/2025). ED Current Prescriptions Medication Dispense Auth. Provider cephALEXin (KEFLEX) 500 mg Oral Capsule 40 Capsule Rhina Gooden DO senna (SENOKOT) 8.6 mg Oral Tablet 14 Tablet Rhina Gooden DO I reviewed the patient's medical record. FINAL IMPRESSION 1. Acute UTI Condition at Disposition: Stable I was present with the medical student for the encounter. I personally verified the history of present illness and performed the physical examination and medical decision making. I have verified all of the medical student???s documentation for this encounter and made edits as necessary. Rhina Gooden DO 06/12/25 [id number] documented in this encounter Plan of Treatment Upcoming Encounters Date Type Department Care Team (Late st Contact Info) Description 08/05/2025 3:45 PM EDT Office Visit [facility] [address] [place] [address] [place] [id number] Vargas Wolf MD [address] [place] [address] documented as of this encounter Procedures Procedure Name Priority Date/Time Associated Diagnosis Comments CT CERVICAL SPINE WO CONTRAST STAT 06/12/2025 10:[address] HEAD WO CONTRAST STAT 06/12/2025 1 0:01 PM EDT BLOOD GAS, VENOUS STAT 06/12/2025 9:2 2 PM EDT CBC WITH DIFF STAT 06/12/2025 9:22 PM EDT LACTIC ACID STAT 06/12/2025 9:22 PM EDT AMMONIA LEVEL STAT 06/12/2025 9:22 PM EDT COMPREHENSIVE METABOLIC PANEL STAT 06/12/2025 9:22 PM EDT URINALYSIS REFLEX STAT 06/12/2025 9:1 1 PM EDT UA W/REFLEX TO CULTURE STAT 9:11 PM EDT EXTRA HUITRON URINE CX STAT 06/12/2025 9 :11 PM EDT URINE CULTURE (NO STAIN) STAT 06/12/2025 9:11 PM EDT documented in this encounter Results * CT CERVICAL SPINE WO CONTRAST (06/12/2025 10:02 PM EDT) Anatomical Region Laterality Modality C-spine Computed Tomogra phy 06/12/2025 10:0 2 PM EDT Impressions 06/12/2025 10:26 PM EDT * No acute bony abnormality of the cervical spine. * Bilateral pleural effusions. - Note: Radiology results need to be interpreted within a comprehensive clinical context. If you have questions about the radiology report, please contact the office of the ordering clinician. Narrative 06/12/2025 10:[address] CERVICAL SPINE WITHOUT CONTRAST, 06/12/2025 10:02 PM CLINICAL HISTORY: -fall. COMPARISON: February 17, 2025 PROCEDURE COMMENTS: Multidetector CT of the cervical spine with multiplanar reformatting per protocol. Dose 1 : CT DLP Total : 1614.24 mGycm DLP Spiral Max : 809.13 mGycm Maximum CTDI Vol : 45.46 mGy FINDINGS: Advanced degenerative changes of the cervical spine. Degenerative changes including calcifications at C1/C2 suggesting CPPD, stable compared with prior imaging. No evidence of acute fracture or traumatic malalignment. Prevertebral soft tissues do not appear thickened. Prominent carotid bulb calcifications are present. Bilateral pleural effusions are partially imaged. Lung apices are emphysematous. Procedure Note Kervin Camejo MD - 06/12/2025 CT CERVICAL SPINE WITHOUT CONTRAST, 06/12/2025 10:02 PM CLINICAL HISTORY: -fall. COMPARISON: February 17, 2025 PROCEDURE COMMENTS: Multidetector CT of the cervical spine withmultiplanar reformatting per protocol. Dose 1 : CT DLP Total : 1614.24 mGycm DLP Spiral Max : 809.13 mGycm Maximum CTDI Vol : 45.46 mGy FINDINGS: Advanced degenerative changes of the cervical spine. Degenerativechanges including calcifications at C1/C2 suggesting CPPD, stable compared withprior imaging. No evidence of acute fracture or traumatic malalignment. Prevertebralsoft tissues do not appear thickened. Prominent carotid bulb calcifications are present. Bilateral pleural effusions are partially imaged. Lung apices areemphysematous. IMPRESSION: * No acute bony abnormality of the cervical spine. * Bilateral pleural effusions. - Note: Radiology results need to be interpreted within a comprehensiveclinical context. If you have questions about the radiology report, please contactthe office of the ordering clinician. us Rhina Gooden DO IMG CT ORDERABLES Final Result * CT HEAD WO CONTRAST (06/12/2025 10:01 PM EDT) Anatomical Region Laterality Modality Head Computed Tomogra phy 06/12/2025 10:0 1 PM EDT Impressions 06/12/2025 10:23 PM EDT * No acute intracranial abnormality. * Acute sphenoid sinusitis. - Note: Radiology results need to be interpreted within a comprehensive clinical context. If you have questions about the radiology report, please contact the office of the ordering clinician. Narrative 06/12/2025 10:[address] HEAD WO CONTRAST 06/12/2025 10:01 PM CLINICAL HISTORY: -fall. COMPARISON: February 17, 2025 PROCEDURE COMMENTS: Routine noncontrast head CT with multiplanar reconstructions. Dose 1 : CT DLP Total : 1614.24 mGycm DLP Spiral Max : 809.13 mGycm Maximum CTDI Vol : 45.46 mGy FINDINGS: Stable background of atrophy and manifestations of prior chronic small vessel ischemic change. No evidence of superimposed acute stroke, hemorrhage, or developing mass lesion. No visible acute calvarial or skull base fracture. Sinus inflammatory changes are present including air-fluid level in the RIGHT sphenoid cellule. Tympanomastoid cavities are clear. There has been prior cataract surgery. Procedure Note Kervin Camejo MD - 06/12/2025 CT HEAD WO CONTRAST 06/12/2025 10:01 PM CLINICAL HISTORY: -fall. COMPARISON: February 17, 2025 PROCEDURE COMMENTS: Routine noncontrast head CT with multiplanar reconstructions. 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 No evidence of superimposed acute stroke, hemorrhage,or developing mass lesion. No visible acute calvarial or skull base fracture. Sinus inflammatory changes are present including air-fluid level in theRIGHT sphenoid cellule. Tympanomastoid cavities are clear. There has been prior cataract surgery. IMPRESSION: * No acute intracranial abnormality. * Acute sphenoid sinusitis. - Note: Radiology results need to be interpreted within a comprehensiveclinical context. If you have questions about the radiology report, please contactthe office of the ordering clinician. Rhina Gooden DO IMG CT ORDERABLES Final Result * AMMONIA LEVEL (06/12/2025 9:22 PM EDT) Ammonia 15 11 - 51 mcmol/L 06/12/2025 9:50 PM EDT [facility] Blood VENOUS BLOOD / Unknown Venipuncture / Unknown 06/12/2025 9:22 PM EDT 06/12/2025 9:29 PM EDT Rhina Gooden DO CHEMISTRY ORDERABLES Final Res ult [facility] [address] [place] [address] * LACTIC ACID (06/12/2025 9:22 PM EDT) Lactic Acid 1.2 0.5 - 1.9 mmol/L 06/12/2025 9:50 PM EDT [facility] Blood VENOUS BLOOD / Unknown Venipuncture / Unknown 06/12/2025 9:22 PM EDT 06/12/2025 9:29 PM EDT us Rhina Gooden DO CHEMISTRY ORDERABLES Final Res ult Performing Organization Address City/[facility]/ZIP Co de Phone Number [facility] [address] [place] [address] * (ABNORMAL) BLOOD GAS, VENOUS (06/12/2025 9:22 PM EDT) pH Venous 7.38 7.32 - 7.42 pH 06/12/2025 9:33 PM EDT [facility] pCO2 Venous 40(L) 41 - 51 mmHg 06/12/2025 9:33 PM EDT [facility] pO2 Venous 42(H) 25 - 40 mmHg 06/12/2025 9:33 PM EDT [facility] Comment:Interpret with cauti on. Not recommended to evaluate patient's oxygenation status. Base Excess Martín -1.3 mmol/L 9:33 PM EDT [facility] Hco3 Venous 23.7(L) 24.0 - 28.0 mmol/L 06/12/2025 9:33 PM EDT [facility] CO2 Total Martín 23(L) 25 - 29 mmol/L 06/12/2025 9:33 PM EDT [facility] O2 Sat. Venous 73.9(H) 40.0 - 70.0 % 06/12/2025 9:33 PM EDT [facility] Inspired O2 RA 06/12/2025 9:33 PM EDT [facility] Blood VENOUS BLOOD / Unknown Venipuncture / Unknown 06/12/2025 9:22 PM EDT 06/12/2025 9:29 PM EDT us Rhina Gooden DO CHEMISTRY ORDERABLES Final Res ult Performing Organization Address City/[facility]/ZIP Co de Phone Number [facility] [address] [place] [address] * (ABNORMAL) COMPREHENSIVE METABOLIC PANEL (06/12/2025 9:22 PM EDT) Sodium 138 136 - 145 mmol/L 06/12/2025 9:50 PM [facility] Potassium 4.2 3.5 - 5.0 mmol/L 06/12/2025 9:50 PM [facility] Chloride 106 98 - 107 mmol/L 06/12/2025 9:50 PM [facility] Total CO2 23 22 - 29 mmol/L 06/12/2025 9:50 PM [facility] Anion Gap 9 7 - 16 mmol/L 06/12/2025 9:50 PM [facility] Calcium 9.5 8.8 - 10.4 mg/dL 06/12/2025 9:50 PM [facility] Glucose Lvl 126(H) 70 - 99 mg/dL 06/12/2025 9:50 PM [facility] BUN 25(H) 8 - 23 mg/dL 06/12/2025 9:50 PM [facility] Creatinine 0.95 0.51 - 1.30 mg/dL 06/12/2025 9:50 PM [facility] Albumin 3.6 3.2 - 4.6 gm/dL 06/12/2025 9:50 PM [facility] Total Protein 6.7 6.4 - 8.3 gm/dL 06/12/2025 9:50 PM [facility] Bili Total 0.9 0.2 - 1.3 mg/dL 06/12/2025 9:50 PM [facility] ALT 19 <=41 U/L 06/12/2025 9:50 PM [facility] AST 34 <=40 U/L 06/12/2025 9:50 PM [facility] Alk Phos 181(H) 36 - 123 U/L 06/12/2025 9:50 PM [facility] eGFR (CKD-EPIcr 2020) 58(L) >=60 mL/min/1.7 3 m2 06/12/2025 9:50 PM [facility] Comment:Estimated GFR was ca lculated using the CKD-EPIcr (2020) equation refit without race. The equation is recommended by the [employer] - [place] [employer] Neph[employer] Task Force. Blood VENOUS BLOOD / Unknown Venipuncture / Unknown 06/12/2025 9:22 PM EDT 06/12/2025 9:29 PM EDT us Rhina Gooden DO CHEMISTRY ORDERABLES Final Res ult [facility] [address], [place] [id number] * (ABNORMAL) CBC WITH DIFF (06/12/2025 9:22 PM EDT) WBC 3.1(L) 3.7 - 10.3 x10(3)/mcL 06/12/2025 9:32 PM EDT [facility] RBC 2.30(L) 3.90 - 5.20 x10(6)/mcL 06/12/2025 9:32 PM EDT [facility] Hgb 8.4(L) 11.2 - 15.7 g/dL 06/12/2025 9:32 PM EDT [facility] Hct 24.7(L) 34.0 - 45.0 % 06/12/2025 9:32 PM EDT [facility] MCV 107.4(H) 80.0 - 100.0 fL 06/12/2025 9:32 PM EDT [facility] MCH 36.5(H) 26.0 - 34.0 pg 06/12/2025 9:32 PM EDT [facility] MCHC 34.0 30.7 - 35.5 g/dL 06/12/2025 9:32 PM EDT [facility] RDW 19.9(H) <=14.9 % 06/12/2025 9:32 PM EDT [facility] Platelet 103(L) 155 - 369 x10(3)/mcL 06/12/2025 9:32 PM EDT [facility] MPV 12.9(H) 8.8 - 12.5 fL 06/12/2025 9:32 PM EDT [facility] Neut Percent 58.2 % 06/12/2025 9:32 PM EDT [facility] Comment:Neutrophils equals s egs plus bands Imm Gran% 0.3 % 06/12/2025 9:32 PM EDT [facility] Comment:Automated count of m etamyelocytes, myelocytes and promyelocytes. Lymph Percent 31.6 % 06/12/2025 9:32 PM EDT [facility] [place] Percent 9.6 % 06/12/2025 9:32 PM EDT [facility] Eos Percent 0.0 % 06/12/2025 9:32 PM EDT [facility] Baso Percent 0.3 % 06/12/2025 9:32 PM EDT [facility] Neut # 1.8 1.6 - 6.1 x10(3)/[facility] 06/12/2025 9:32 PM EDT [facility] Comment:Neutrophils equals s egs plus bands IMMGRAN# 0.0 0.0 - 0.1 x10(3)/mcL 06/12/2025 9:32 PM EDT [facility] Comment:Automated count of m etamyelocytes, myelocytes and promyelocytes. An absolute IG <0.1 is reported as 0.0. Lymph # 1.0(L) 1.2 - 3.9 x10(3)/[facility] 06/12/2025 9:32 PM EDT [facility] [place] # 0.3 0.3 - 0.9 x10(3)/[facility] 06/12/2025 9:32 PM EDT [facility] Eos# 0.0 0.0 - 0.5 x10(3)/[facility] 06/12/2025 9:32 PM EDT [facility] Baso # 0.0 0.0 - 0.1 x10(3)/[facility] 06/12/2025 9:32 PM EDT [facility] Blood VENOUS BLOOD / Unknown Venipuncture / Unknown 06/12/2025 9:22 PM EDT 06/12/2025 9:29 PM EDT us Rhina Gooden DO HEMATOLOGY ORDERABLES Final Re sult [facility] [address] [place] [address] * (ABNORMAL) URINE CULTURE (NO STAIN) (06/12/2025 9:11 PM EDT) Culture Positive Growth(A) 06/15/2025 12:51 PM EDT [facility] Culture >100,000 CFU/mL Klebsiella pneumoniae SUSCEPTIB ILITY RESULT 06/15/2025 12:51 PM EDT [facility] Culture >100,000 CFU/mL Proteus mirabilis SUSCEPTIB ILITY RESULT 06/15/2025 12:51 PM EDT [facility] Comment: Confirmed positive for ESBL (extended spectrum Beta lactamase) production. If isolate susceptible and patient is clinically stable, sulfamethoxazole-trimethoprim is the drug of choice. Fluoroquinolones may also be considered. Nitrofurantoin may be associated with increased risk of treatment failure. Urine STRUCTURE OF URINARY TRACT PROPER / Unknown 06/12/2025 9:11 PM EDT 06/12/2025 9:37 PM EDT Narrative Organism Antibiotic Method Susceptibility Klebsiella pneumoniae Amikacin SUSCEPTIBILITY RESULT Klebsiella pneumoniae Amoxicillin/Clavulanat e SUSCEPTIBILITY RESULT <=8/4 ug/mL: Susceptible Klebsiella pneumoniae Ampicillin SUSCEPTIBILITY RESULT Klebsiella pneumoniae Ampicillin/Sulbactam SUSCEPTIBILITY RESULT <=4/2 ug/mL: Susceptible Klebsiella pneumoniae Aztreonam SUSCEPTIBILITY RESULT <=4 ug/mL: Susceptible Klebsiella pneumoniae Cefazolin SUSCEPTIBILITY RESULT <=2 ug/mL: Susceptible Klebsiella pneumoniae Cefepime SUSCEPTIBILITY RESULT Klebsiella pneumoniae Cefotaxime SUSCEPTIBILITY RESULT Klebsiella pneumoniae Cefoxitin SUSCEPTIBILITY RESULT <=8 ug/mL: Susceptible Klebsiella pneumoniae Ceftazidime SUSCEPTIBILITY RESULT Klebsiella pneumoniae Ceftazidime/Avibactam SUSCEPTIBILITY RESULT Klebsiella pneumoniae Ceftolozane/Tazobactam SUSCEPTIBILITY RESULT Klebsiella pneumoniae Ceftriaxone SUSCEPTIBILITY RESULT Klebsiella pneumoniae Cefuroxime SUSCEPTIBILITY RESULT Klebsiella pneumoniae Ciprofloxacin SUSCEPTIBILITY RESULT <=0.25 ug/mL: Susceptible Klebsiella pneumoniae Ertapenem SUSCEPTIBILITY RESULT <=0.5 ug/mL: Susceptible Klebsiella pneumoniae Gentamicin SUSCEPTIBILITY RESULT <=2 ug/mL: Susceptible Klebsiella pneumoniae Imipenem SUSCEPTIBILITY RESULT <=1 ug/mL: Susceptible Klebsiella pneumoniae Levofloxacin SUSCEPTIBILITY RESULT <=0.5 ug/mL: Susceptible Klebsiella pneumoniae Meropenem SUSCEPTIBILITY RESULT <=1 ug/mL: Susceptible Klebsiella pneumoniae Meropenem/Vaborbactam SUSCEPTIBILITY RESULT Klebsiella pneumoniae Minocycline SUSCEPTIBILITY RESULT Klebsiella pneumoniae Moxifloxacin SUSCEPTIBILITY RESULT Klebsiella pneumoniae Nitrofurantoin SUSCEPTIBILITY RESULT <=32 ug/mL: Susceptible Klebsiella pneumoniae Piperacillin/Tazobacta m SUSCEPTIBILITY RESULT <=8 ug/mL: Susceptible Klebsiella pneumoniae Tetracycline SUSCEPTIBILITY RESULT <=4 ug/mL: Susceptible Klebsiella pneumoniae Tigecycline SUSCEPTIBILITY RESULT Klebsiella pneumoniae Tobramycin SUSCEPTIBILITY RESULT <=2 ug/mL: Susceptible Klebsiella pneumoniae Trimethoprim/Sulfameth oxazole SUSCEPTIBILITY RESULT <=0.5/9.5 ug/mL: Susceptible Proteus mirabilis Amikacin SUSCEPTIBILITY RESULT Proteus mirabilis Amoxicillin/Clavulan at e SUSCEPTIBILITY RESULT Proteus mirabilis Ampicillin SUSCEPTIBILITY RESULT >16 ug/mL: Resistant Proteus mirabilis Ampicillin/Sulbactam SUSCEPTIBILITY RESULT Proteus mirabilis Aztreonam SUSCEPTIBILITY RESULT <=4 ug/mL: Resistant Proteus mirabilis Cefazolin SUSCEPTIBILITY RESULT [...] Proteus mirabilis Nitrofurantoin SUSCEPTIBILITY RESULT Proteus mirabilis Piperacillin/Tazobac ta m SUSCEPTIBILITY RESULT <=8 ug/mL: Susceptible Proteus mirabilis Tetracycline SUSCEPTIBILITY RESULT Proteus mirabilis Tigecycline SUSCEPTIBILITY RESULT Proteus mirabilis Tobramycin SUSCEPTIBILITY RESULT <=2 ug/mL: Susceptible Proteus mirabilis Trimethoprim/Sulfame th oxazole SUSCEPTIBILITY RESULT >2/38 ug/mL: Resistant us Rhina Gooden DO MICROBIOLOGY - GENERAL ORDERAB LES Final Result Performing Organization Address City/[facility]/ZIP Co de Phone Number [facility] [employer] [address] , [place] [address] * EXTRA HUITRON URINE CX (06/12/2025 9:11 PM EDT) Urine STRUCTURE OF URINARY TRACT PROPER / Unknown 06/12/2025 9:11 PM EDT 06/12/2025 9:28 PM EDT us Rhina Gooden DO MICROBIOLOGY - GENERAL ORDERAB LES Final Result Performing Organization Address [facility] Co de Phone Number [facility] [address] [place] [address] * (ABNORMAL) URINALYSIS REFLEX (06/12/2025 9:11 PM EDT) UA Color Yellow 06/12/2025 9:37 PM EDT [facility] UA Appear Cloudy(A) Clear 06/12/2025 9:37 PM EDT [facility] UA Glucose Negative Negative mg/dL 06/12/2025 9:37 PM EDT [facility] UA Ketones Negative Negative mg/dL 06/12/2025 9:37 PM EDT [facility] UA Blood Negative Negative 06/12/2025 9:37 PM EDT [facility] UA pH 6.0 5.0 - 8.0 pH 06/12/2025 9:37 PM EDT [facility] UA Protein Trace (10-20 mg/dL) Negative mg/dL 06/12/2025 9:37 PM EDT [facility] UA Urobilinogen Normal <=1 mg/dL 9:37 PM EDT [facility] UA Bili Negative Negative 06/12/2025 9:37 PM EDT [facility] UA Nitrite Negative Negative 06/12/2025 9:37 PM EDT [facility] UA Leuk Est 4+ (500 Ion/mcl)(A) Negative 06/12/2025 9:37 PM EDT [facility] UA Spec Grav 1.015 1.001 - 1.035 no units 06/12/2025 9:37 PM EDT [facility] Comment:Reference range helga d for random specimens only. UA WBC >182(H) 0 - 4 /HPF 06/12/2025 9:37 PM EDT [facility] UA RBC 1 0 - 3 /HPF 06/12/2025 9:37 PM EDT [facility] UA Squam Epi 4+ /LPF 06/12/2025 9:37 PM EDT [facility] UA Bacteria 1+(A) Negative /HPF 06/12/2025 9:37 PM EDT [facility] UA Trans Epi <1(H) <=0 /HPF 06/12/2025 9:37 PM EDT [facility] Urine STRUCTURE OF URINARY TRACT PROPER / Unknown 06/12/2025 9:11 PM EDT 06/12/2025 9:28 PM EDT Rhina Gooden DO URINE ORDERABLES Final Result [facility] [address] [id number] documented in this encounter Visit Diagnoses Diagnosis Acute UTI- Primary Urinary tract infection, site not specified documented in this encounter Administered Medications Inactive Administered Medications - up to 1 most recent administrations Medication Order MAR Action Action Date Dose Rate Site cefTRIAXone (ROCEPHIN) 1 g in sterile water 9.6 mL IVP 1 g, Intravenous, ONCE, 1 dose, On Tue06/12/25 at 2200, Draw up 9.6 mL of Sterile Water for Injection into syringe and inject into cefTRIAXone 1 g vial. Shake vial until powder is completely dissolved. Draw up entire content of vial (about 10 mL) into syringe. Administer intravenous push (IVP) over a period of 3 to 5 minutes., Reason for Therapy: Infection Documented, Indication: Urinary Tract Infection Given 06/12/2025 10:34 PM EDT 1 g morphine injection 4 mg 4 mg, Intravenous, ONCE, 1 dose, On Tue06/12/25 at 2100 Given 06/12/2025 9:27 PM EDT 4 mg oxyCODONE-acetaminophen (PERCOCET) 5-325 mg per tablet 1 Tablet 1 Tablet, Oral, ONCE, 1 dose, On Tue06/12/25 at 2245, *Maximum adult dose of acetaminophen is 4000 mg from all sources in 24 hours.* Given 06/12/2025 10:56 PM EDT 1 Tablet sodium chloride 0.9% IV line flush 50 mL 50 mL, Intravenous, at 999 mL/hr, PRN, Starting on Tue06/12/25 at 2048, Until Arlene 06/13/25 at 0317, Line Care, Flush with 50 mL after IVPB to insure complete administration of the dose. May use the saline infusion to back flush IVPB tubing as needed., Use this order to document priming and flushing IV line after medication administration. sodium chloride 0.9% syringe 5-10 mL 5-10 mL, Intravenous, PRN, Starting on Tue06/12/25 at 2048, Until Arlene 06/13/25 at 0317, Line Care, Flush with 5 mL saline pre/post IVP, and 5 mL prior to IVPB or blood product administration. Protocol for PERIPHERAL IV saline lock maintenance, flush with 3-5 mL saline syringe every 8 hours., Flush peripheral lines every 12 hours, central lines every 8 hours, and after IV medication documented in this encounter Active and Recently Administered Medications Times are shown in EDT. Scheduled Medication Order 06/10/2025 06/11/2025 06/12/2025 cefTRIAXone (ROCEPHIN) 1 g in sterile water 9.6 mL IVP (COMPLETED) 1 g, Intravenous, ONCE, 1 dose, On Tue06/12/25 at 2200, Draw up 9.6 mL of Sterile Water for Injection into syringe and inject into cefTRIAXone 1 g vial. Shake vial until powder is completely dissolved. Draw up entire content of vial (about 10 mL) into syringe. Administer intravenous push (IVP) over a period of 3 to 5 minutes., Reason for Therapy: Infection Documented, Indication: Urinary Tract Infection 2233 (Given - Provid er: Zacarias Ta RN) morphine injection 4 mg (COMPLETED) 4 mg, Intravenous, ONCE, 1 dose, On Tue06/12/25 at 2100 2127 (Given - Provid er: Zacarias Ta RN) oxyCODONE-acetaminophen (PERCOCET) 5-325 mg per tablet 1 Tablet (COMPLETED) 1 Tablet, Oral, ONCE, 1 dose, On Tue06/12/25 at 2245, *Maximum adult dose of acetaminophen is 4000 mg from all sources in 24 hours.* 2256 (Given - Provid er: Zacarisa Ta RN) PRN Medication Order 06/10/2025 06/11/2025 06/12/2025 sodium chloride 0.9% IV line flush 50 mL 50 mL, Intravenous, at 999 mL/hr, PRN, Starting on Tue06/12/25 at 2048, Until Arlene 06/13/25 at 031, Line Care, Flush with 50 mL after IVPB to insure complete administration of the dose. May use the saline infusion to back flush IVPB tubing as needed., Use this order to document priming and flushing IV line after medication administration. sodium chloride 0.9% syringe 5-10 mL 5-10 mL, Intravenous, PRN, Starting on Tue06/12/25 at 2048, Until Arlene 06/13/25 at 0317, Line Care, Flush with 5 mL saline pre/post IVP, and 5 mL prior to IVPB or blood product administration. Protocol for PERIPHERAL IV saline lock maintenance, flush with 3-5 mL saline syringe every 8 hours., Flush peripheral lines every 12 hours, central lines every 8 hours, and after IV medication documented in this encounter Orders Medications Ordered That Rick ht Not Have Been Administered Count Last Ordered Date First Ordered Date sodium chloride 0.9% IV line flush 50 mL 1 06/12/2025 sodium chloride 0.9% syringe 5-10 mL 1 05/18 documented in this encounter Additional Health Concerns Infection Onset Date Last Indicated Resolved Time ESBL organism Comment:ESBL urine: 05/23, 06/1205/23/2025 06/12/2025 Assessment Noted Time A fall risk assessment has been complete d for the patient 02/08/2025 11:32 AM EDT documented as of this encounter Care Teams Traveling Construction Superintendent Relationship Specialty Start Date End Date No Pcp, Per Patient PCP - General 06/04/24 documented as of this encounter
--- OUTSIDE RECORDS SUMMARY | 2025-06-23 13:13 | XMS_ITS | Encounter Summary ---
Author Organization [place] [address] Care Team Providers Care Internal Control Specialist Name Role Phone No Pcp, Per Patient Primary Care Provider Evelyne prabhakar Reason for Visit * Reason Comments Atrial Fibrillation a fib rvr from [facility]. they report HR of 180, per squad HR 103. * Auth/Cert/Inpt (Routine) Specialty Diagnoses / Procedures Referred By Contac t Referred To Contact Diagnoses Atrial fibrillation with RVR (HCC) Paroxysmal atrial fibrillation (HCC) Referral ID Status Reason Start Date Expiration Date Visits Re quested Visits Authorized [id number] 1 1 Encounter Details Date Type Department Care Team (Latest Contact Info) Description 06/23/2025 1:13 PM EDT - 07/02/2025 10:57 AM EDT Hospital Encounter [facility] [address] [place] [address] Stephan Rodriguez MD [address] [place] [address] Duong Vitale MD [address] [place] [address] Atrial fibrillation with RVR (HCC) (Primary Dx); Acute pulmonary edema (HCC); Elevated troponin; Pleural effusion Discharge Disposition: [facility] Facility Social History Tobacco Use Types Packs/Day Years Used Date Smoking Tobacco: Former Cigarettes Q uit: 1991 Passive Smoke Exposure: Past Smokeless Tobacco: Never Alcohol Use Standard Drinks/Week Comments Not Currently 0 (1 standard drink = 0.6 oz pur e alcohol) [facility] Utilities Answer Date Recorded In the [...] Date Recorded PHQ-2 Total Score 0 06/23/2025 [place] [facility] - Occupational Stress [...] money to get more. Never true 06/23/2025 [facility] IP Transportation Answer D ate Recorded [...] 1:16 PM EDT Emiliano Jimenez RN * [place] Suicide Severity Rating Scale (Q shift for [...] Horowitz MD - 07/02/2025 10:57 AM EDT [place] Discharge Summary Patient Name: Skyler Bautista : [...] 1 Patch, Transdermal, DAILY nalOXone 4 mg/actuation [place] Dose: 4 mg Qty: 1 Each Refills: 0 Commonly known as: NARCAN 4 mg, Nasal, PRN, [place] the contents of one device (0.1mL) into [...] Your Medications These medications were sent to [facility] [place] [address] [address] [facility] - [phone] [place] [id number] fUROsemide 40 mg Tab gabapentin 300 mg Cap levETIRAcetam 750 mg Tab losartan 25 mg Tab metoprolol 25 mg Tab oxyCODONE 5 mg Tab Condition at Discharge: stable Disposition: SNF Follow-up: [facility] [address] [facility] [address] [place] [address] Call FOLLOW UP IN 2 WEEKS TO DISCUSS CATHETER, SOON IF YOU WOULD LIKE IT REMOED SOONER. [facility] [address] [address] Jacob Horowitz MD 07/02/2025 Time spent: More [...] Heart failure in adults ??? Discharge instructions (Argentine) * Losartan (Argentine) * Levetiracetam (Argentine) * Metoprolol (Argentine) documented in this encounter Medications at Time [...] 06/28/2025 07/28/2025 nalOXone (NARCAN) 4 mg/actuation Nasl [place], Non-Aerosol 0.1 mL by Nasal route as needed for Opioid Reversal. [place] the contents of one device (0.1mL) into [...] Comment s [facility] Facility Car Other Facil mari Steen documented [...] With Patient not available Visited By CPE Stereo Map Plotter Operator Reason for Visit Hospitality visit;Spiritual, emotional or social support Patient Assessment Patient Buddhism at Registration Protestant Care Plan Plan for Follow-Up Employment Services Director(s) remains available as needed Chapin Meyers Employment Services Director, Pastoral and Spiritual Care For non-urgent requests, please place a Pastoral Care consult in [facility]. For all urgent matters, please send an urgent [facility] Secure Chat to the Pastoral Care group at your location. Between 11pm and 7am, please use On-Call Finder to send an [facility] Secure Chat to the on-call service desk technician. Pastoral Care office phone numbers: EDG/COV/GRT [phone], [place] [phone], FTT [phone], DBN [phone] * Kailee Mena BSW - 07/01/2025 3:43 PM EDT 07/01/25 1542 Discharge Planning Evaluation Actual Discharge Plan 9.15--SW FINAL NOTE. Patient is set for discharge to [facility] on Tuesday. Family to transport at 10 am. Nursing report number provided to staff. Patient admitted at [facility] loc. All parties updated and aware. No further needs noted. Final Note Post Acute Facility [facility] Post Acute Form Completed Yes Care [...] Comments #1 I'm leaving Others Present/Assisting Nicole SCIENTIFIC RESEARCH ASSOCIATE Therapy delay reason Patient refused * Manuel Frey RN - 07/01/2025 1:52 PM EDT Patient has been accepted to [facility] on Tuesday. nursing report number is [phone]. pharmacy has been changed.Family to provide transport at 10:00 am. please pass along to next shift. thanks! * Nicole Caicedo PTA - 07/01/2025 1:12 PM EDT 07/01/25 1125 PT Subjective Note Type Follow Up Treatment Attempt Patient Room/Unit TCU;4N PT Subjective Comments #1 pt refused to get up states leaving to [facility] in [place] attempted to redirect unsuccessfully. Therapy delay reason Patient declined * Kailee Mena BSW - 07/01/2025 10:54 AM EDT 07/01/25 1053 Ongoing Discharge Planning Evaluation Actual Discharge Plan 07.01--SW UPDATE. SW left a few messages with [facility] admission coordinator to determine if patient [...] injury Hold anticoagulation. Dispo: Discussed with RN, property caretaker. Awaiting facility in [place]. VTE Prophylaxis: Active Hospital Problems Diagnosis *Atrial [...] data and diagnostic testing reviewed 07/01/25. Jacob oHrowitz MD 07/01/2025 11:39 AM This note was [...] with RN. Awaiting placement for facility in [place]. VTE Prophylaxis: Active Hospital Problems Diagnosis *Atrial [...] does not want patient to go to [facility]. Looking for facility in [place]. VTE Prophylaxis: Active Hospital Problems Diagnosis *Atrial [...] does not want her to go to [place]. No nausea or vomiting. Objective: BP 140/90 [...] FAMILY WHO IS NOW DECLINING DISCHARGE TO [facility] AND WOULD LIKE TO HAVE [facility] EVALUATE FOR POTENTIAL ADMISSION. NORA SPOKE WITH [facility] WITH ADMISSIONS [phone] WHO REQUESTED INFORMATION TO BE FAXED TO [phone] FOR REVIEW TO BE COMPLETED. FAMILY IS AWARE THATTHEY WILL NEED TO PROVIDE TRANSPORTATION TO FACILITY INSURANCE WILL NOT COVER THIS DISTANCE. CC WILL CONTACT FAMILY ONCE DECISION IS MADE FROM [facility]. SUJATA WITH [facility] AWARE OF [facility] CANCELLATION. TO FOLLOW. 06/28/25 2984 Discharge Planning Evaluation Actual Discharge Plan 06.28--NORA FINAL NOTE. Patient is set for discharge today. [facility] to provide transportation with hot die picker at 6:30. NORA updated nursing staff, family and Sujata with [facility]. No further needs noted. Final Note Referral to SEP Care Management (SEP patients only) N/A Transportation at Discharge Ambulance Date Expected 06/28/25 Transportation Location [facility] Confirmed Discharge Transportation Plan? Yes PASAR Completed [...] Notified of Plan Yes * Kimmie Schuler CCC-SUMATRA OPENER - 06/28/2025 10:28 AM EDT 06/28/25 0947 Speech Pathology Treatment Note Patient Seen Today? Yes Note Type Treatment/Progress Diet Recommendations Regular Solids;Thin Liquids Strategies/Maneuvers Upright positioning 90 degrees Medication administration With thin liquids Assistance/Supervision Independent SUMATRA OPENER Recommendation No post discharge therapy recommended Hospital [...] re: request for transportation assistance. Scheduled with: [facility]. Trip #: [id number] @ [phone] for 06-27-25 to [facility]. Patient and RN aware of tentative plan. 06/27/25 1521 Discharge Planning Evaluation Referral Type Transportation Transportation at Discharge Ambulance Transportation Options Private Pay Date Expected 06/27/25 Time Expected 1630 Transportation Location [facility] Transportation setup completed by [facility] Yes Post Acute Form Completed Yes * Dinorah Stubbs MSW - 06/27/2025 3:06 PM EDT 06/27/25 1505 Ongoing Discharge Planning Evaluation Discussed discharge plans with Patient/Family/Caregiver/Support Person Yes, Discussed with patient and caregiver/support person Discussed discharge plans with Care Team at [facility] Yes, with nurse in attendance;Yes, with doctor in attendance Discharge to SNF Actual Discharge Plan 06/27 NORA Final: Note per MD, pt is okay to d/c this date. NORA met pt at bedside and completed d/c round. Pt states her plan is to d/c to [facility] this date. Post Acute Placement consent form completed and placed in pt's chart. NORA notified pt's son, Edgar to notify of d/c plans. Pt states no needs or preferences. NORA contacted Sujata from [facility] and notified of d/c time and date. Nurse updated. stated pt is not medically ready for d/c. NORA notified family, [facility] and [facility] of change. Edgar states he will contact family members. SW following. Final Note Post Acute Facility [facility] Post Acute Form Completed Yes Care Coordination Discharge Ready? Yes Transportation at Discharge Ambulance Date Expected 06/28/25 Transportation Assign to [facility] Yes PASAR Completed Not Applicable Patient Aware [...] EDT Heart & Vascular Progress Note PATIENT: [facility] Day 3 Cardiology following for: afib Subjective: [...] hours have been reviewed Telemetry: afib controlled [id number] Stroke Risk Points: 9 Values used to [...] pleural effusions and dependent opacities - atelectasis -SCIENTIFIC RESEARCH ASSOCIATE lasix PRN -s/p IV diuresis - transition to PO lasix 40 mg -Continue lopressor 25 mg BID - can plan to change to Toprol prior to discharge -Start losartan 25 mg Coronary Artery Disease -Remote history of CABG 1992 and subsequent PCIs -SCIENTIFIC RESEARCH ASSOCIATE lipitor 40 mg, coreg 25 mg BID, ranexa 500 mg BID History of PE 2010 History Antiphospholipid Syndrome -No SCIENTIFIC RESEARCH ASSOCIATE AC with history of ICH Elevated Troponin -Troponin 92, 83 -EKG afib RVR -ECHO (06/24/2025) LVEF 45-50%. Mild MR. Severe TR. -No angina Type 2 Diabetes -A1c 5.3 Hypertension -SCIENTIFIC RESEARCH ASSOCIATE coreg 25 mg BID -Currently on lopressor 25 mg BID -Start losartan 25 mg Hyperlipidemia -SCIENTIFIC RESEARCH ASSOCIATE lipitor 40 mg Carotid Stenosis Peripheral Vascular Disease -s/p recent left AKA Plan: Doing well rates controlled, no bradycardia - continue lopressor 25 mg BID - would plan to change to Toprol at discharge with midrange EF Start losartan 25 mg Can plan to add additional GDMT as outpatient Further input from Dr Garner. Lianet Harris, RESEARCH ATTORNEY, Heart and Vascular 06/27/2025 Disposition Perspective - [...] as of 05/24/2025, who [facility] with rapid atrial fibrillation and acute hypoxic respiratory failure. ECG on admission w/ rapid atrial fibrillation, possible old anteroseptal AR Hs Trop 92-83 NT Pro BNP [facility] 11/25/2022- 1. CAD s/p CABG 2 [...] & Critical Care Medicine * Miryam Guzman, RESEARCH ATTORNEY - 06/26/2025 3:08 PM EDT Images from [...] presented to the ED on 06/23 from [facility] with findings of A fib RVR. [...] evaluation of the kidneys and bladder with retail representative images and waffle machine operator notes sent to PACS for radiologist review. [...] before the facility discharge Admitting Diagnosis From [facility], dx Acute respiratory failure with hypoxia int/ext [...] three months Additional Comments Has been at [facility] since Left AKA 05/24, plan is to [...] Dominance Right Gross Grasp Functional Coordination Functional Store Warehouse Associate Strength WFL Coord/Sensation Assessed Grossly Intact/Normal Perception [...] therapy recommended. Time In / Time Out 5115-1465 IP OT Evaluation Minutes 8 IP OT [...] from IV formulation to acetaminophen 650 mg PO/CT every 4 hours PRN per protocol. Thanks! Roni Spicer PharmD * Denisa Armando RD,LD - 06/26/2025 2:[address] [facility] Nutrition Malnutrition Reassessment Evidence Supported [...] Status: Active nutrition diagnosis Nutrition Prescription: Kcals: 8184-8441 kcal (25-30 kcal/55.7 kg) Protein (g): 67-84 [...] Comment: OGT removed with extubation yesterday, passed SUMATRA OPENER eval this am and oral diet ashley [...] Supplement Acceptance: drinks 2 strawberry Glucerna daily police captain senior Tube Feeding?: No (d/c'd yesterday with extubation) Chewing Difficulty: No Swallowing Difficulty: No (SUMATRA OPENER jayda completed) Energy Intake: Other (comment) (denies [...] Stool Occurrence: 1 Stool Appearance: Type 5 [place] Stool Chart Stool Color: Brown Stool Amount: Medium Biochemical Data/Medical Tests: Pertinent Labs: gluc 95, H/H 9.0/27.4, BNP 7743 Pertinent Medical Tests/Procedures: 05/24- intubated, OGT removed with extubation. 06/25-06/25 NGT Clinical Course: Clinical Course: Admitted from [facility] d/t Afib w/AVR, CP w/elevated troponin, CHFand Acute Pulm edema-lasix prescribed, Anemia, Intubated 05/24 d/t unresponsiveness and seizure like activity. 06/25 extubated, SUMATRA OPENER following-oral diet advanced * Cely Luna MSW - 06/26/2025 1:46 PM EDT 06/26/25 1343 Ongoing Discharge Planning Evaluation Completed by CC/SW Yes Caregiver Name Edgar Buitrago - son Caregiver Anticipated post-acute care needs Nursing Facility Discussed discharge plans with Care Team at [facility] Yes, with nurse in attendance Patient's goals for recovery Return to Prior Level of Functioning Repisodic List provided N/A - Resumption care. Patient active with post acute partner prior to admission Discharge to SNF Actual Discharge Plan 06/26/2025 SW(UPDATE): Pt admitted with atrial fibrillation with RVR, acute pulmonary edema, elevated troponin and pleural effusion. Pt was at [facility] for SNF prior to admission. A proactive [...] pleural effusions and dependent opacities - atelectasis -SCIENTIFIC RESEARCH ASSOCIATE lasix PRN -Currently on IV diuresis this admission -Volume status appears to be improving Coronary Artery Disease -Remote history of CABG and subsequent PCIs -SCIENTIFIC RESEARCH ASSOCIATE lipitor 40 mg, coreg 25 mg BID, ranexa 500 mg BID History of PE -No SCIENTIFIC RESEARCH ASSOCIATE AC with history of ICH Elevated Troponin -Troponin 92, 83 -EKG afib RVR -ECHO as above Type 2 Diabetes -A1c 5.3 Hypertension -SCIENTIFIC RESEARCH ASSOCIATE coreg 25 mg BID Hyperlipidemia -SCIENTIFIC RESEARCH ASSOCIATE lipitor 40 mg Peripheral Vascular Disease -s/p recent left AKA Plan: Seems to be tolerating po BB rates controlled 90's -2949 since admission -2250 overnight Cr remains stable BNP increased from previous 5011...7743 Possible need for ppm tachy/amber Further input from Dr Pascual Vela, RESEARCH ATTORNEY, Heart and Vascular 06/26/2025 Disposition Perspective - [...] as of 05/24/2025, who [facility] with rapid atrial fibrillation and acute hypoxic respiratory failure. A fib w/ RVR on admission, placed on dilt gtt, became bradycardic and hypotension, had subsequent PEA arrest, now s/p ETT and left IJ central line. ECG on admission w/ rapid atrial fibrillation, possible old anteroseptal AR Hs Trop 92-83 NT Pro BNP [facility] 11/25/2022- 1. CAD s/p CABG 2 [...] ICU Length of Stay: 2 days Plan: Discharge Rn monitoring Continue current diet order CLABSI Prevention [...] Plan Exist Discharge Planning Fall Protection Meds: SCIENTIFIC RESEARCH ASSOCIATE Meds Meds: Pharmacy Verified Mobility Patient Education [...] w/ water and ice chips - pending SUMATRA OPENER consult and evaluation tomorrow * Jeannette Camarillo [...] the RN and the care they're receiving. DIRECTOR OF TEACHING AND LEARNING notified and spoke with family. Charge nurse [...] PEEP: 8 cmH20 Plateau Pressure (Ppl): 22 [id number] Airway Size: 7.5 Lab Results Component Value [...] fUROsemide 40 mg Intravenous Daily Insulin Calculator (WEB PRODUCTION ASSISTANT) - FSBS (Correction Only) Intake Input 1 [...] neurology follow up needed * Courtney Lloyd, CORRECTIONAL SECURITY OFFICER - 06/25/2025 11:32 AM EDT 06/25/25 [...] findings. Right paranasal sinus disease. On p.o. [facility] Neurology consulted. Acute on chronic diastolic heart [...] AKA noelle in place. Neurological: Bilateral hand dry roaster strength 5/5 Skin: Skin is warm and [...] Garner, DO - 06/25/2025 7:36 AM EDT [facility] Inpatient Follow Up Note Admit Date: 06/23/2025 Provider: Duong Vitale MD CC: Chief Complaint Patient presents with Atrial Fibrillation a fib rvr from [facility]. they report HR of 180, per squad [...] Duong Vitale MD 1,000 mcg at 06/24/25 09 [...] MISCELLANEOUS PRN Spencer Luna APRN Insulin Calculator (WEB PRODUCTION ASSISTANT) - FSBS (Correction Only) Intake Input 1 [...] as of 05/24/2025, who was [facility] with rapid atrial fibrillation and acute hypoxic respiratory failure. A fib w/ RVR on admission, placed on dilt gtt, became bradycardic and hypotension, had subsequent PEA arrest, now s/p ETT and left IJ central line. ECG on admission w/ rapid atrial fibrillation, possible old anteroseptal AR Hs Trop 92-83 NT Pro BNP [facility] 11/25/2022- 1. CAD s/p CABG 2 [...] overall guarded prognosis Signed: Sukh Garner DO, [facility] * Isidro Clifford, MAHENDRA - 06/25/2025 12:45 [...] ICU Length of Stay: 1 days Plan: Discharge Rn monitoring CLABSI Prevention CHG Application: Completed (06/24/25 [...] Plan Exist Discharge Planning Fall Protection Meds: SCIENTIFIC RESEARCH ASSOCIATE Meds Meds: Pharmacy Verified Mobility Patient Education [...] Vent -ICU -overnight events noted -discussed w scheduling assistant -Vent bundle NG feeds ---Nutrition following Atrial fibrillation with RVR (HCC) ICU -Cardizem drip stopped last PM before rapid response and resp arrest -Coreg ( HOLDING) -Cards eval pending -Recent Echo reviewed -NSR this AM History of pulmonary embolus (PE) No current AC -hx Sub Arachnoid bleed Hypertension associated with diabetes (HCC) Coreg HELD -Recent A1C 5.4 -NG feeds and WEB PRODUCTION ASSISTANT for sugars now that in ICU Acute [...] Armando RD,LD - 06/24/2025 9:[address] [facility] Nutrition Malnutrition Reassessment Evidence Supported [...] L-AKA Clinical Course: Clinical Course: Admitted from [facility] d/t Afib w/AVR, CP w/elevated troponin, CHFand Acute Pulm edema-lasix prescribed, Anemia, Intubated 05/24 d/t unresponsiveness and seizure like activity * Eleuterio Renteria S, CORRECTIONAL SECURITY OFFICER - 06/24/2025 7:42 AM EDT 06/24/25 [...] $Pt/Vent Assessment Service Code Completed Vent ID [id number] O2 Device Ventilator Vent Type (S)CMV+ Vent [...] - Brief Progress Note PERMANENT 06/24/2025 04:06 [facility] - ICU - 18 - F, BEATRIZ MICHELE SKYLER Date of Service 06/24/2025 04:06 HPI/Events of Note [facility] Provider Assessment Note Ms. Bautsita is an 84-year-old female admitted to the [...] sensitivity factor correctional insulin q.4 hours [facility] if bedside physician is [...] called and will be coming in from [place], [place] Belongings were charted and skin on [...] Dry, No erythema, No rash. Extremities: Left hqjba-syc-schx amputation with noelle at stump. Neurologic: Obtunded [...] Manual Patient's Living Arrangments Prior to Admission? Senior Care Care Facility Name [facility] Support Systems Children;Family Members Is PCP listed on facesheet correct? No Who does patient report as PCP? Dr. Howell in [place], [place] Identified psychosocial/financial issues Assist with discharge arrangement for patients transferring to SNF's Follow Up Assigned To: Referral not needed concern identified and addressed by Health Associate Anticipated post-acute care needs Nursing Facility ED [...] and placed on chart. Patient currently at [facility] for SNF. Patient wishes to return at discharge to complete therapy. Resumption referral sent via [email or web address]. Mostly independent with ADLs. DME includes a MWC. PCP is Dr. Howell in [place], [place]. Pharmacy needsbeing met through [email or web address]. No issues with medication affordability. SDOH completed. [...] In the past 12 months has the [employer], gas, oil, or water [employer] threatened to shut off services in your [...] Do you speak a language other than Argentine at home? No Do you want help [...] with Atrial Fibrillation a fib rvr from [facility]. they report HR of 180, per squad HR 103. History of Present Illness: Skyler Bautista is a 84 y.o. female admitted thru the ER after being sent by [facility] for increasing dyspnea and tachycardia. Found to have Afib w RVR by EMS and now on cardizem drip w sx improved.Also given Lasix for Pulm edema in ER. PT has had increasing SX for 3-4 days. Her heart rates were apparently in the 180s at the [facility] per [facility]. EMS states that her heart rates are [...] IR REVAS FEM POP ART UNILAT W SCIENTIFIC RESEARCH ASSOCIATE 01/30/2025 IR REVAS FEM POP ART UNILAT W SCIENTIFIC RESEARCH ASSOCIATE 01/30/2025 Vargas Wolf MD EDG IR IR [...] true Transportation Needs: No Transportation Needs (05/01/2025) [facility] IP Transportation In the past 12 months, has lack of reliable transportation kept you from medical appointments, meetings, work or from getting things needed for daily living?: No Physical Activity: Inactive (05/01/2025) Exercise Vital Sign Days of Exercise per Week: 0 days Minutes of Exercise per Session: 0 min Stress: No Stress Concern Present (05/01/2025) [place] [facility] - Occupational Stress Questionnaire Feeling of Stress : Not at all Received from [employer] ([place], [place], [place], [place]) Family and Community Support Intimate Partner Violence: Not At Risk (08/06/2024) Received from [facility] Humiliation, Afraid, Rape, and Kick questionnaire Fear of Current or Ex-Partner: No Emotionally Abused: No Physically Abused: No Sexually Abused: No Housing Stability: Low Risk (08/06/2024) Received from [facility] Housing Stability Vital Sign Unable to [...] 06/23/25 1611 Final result Specimen: Blood, Venous pa-cLxldocbp-R 2HR 83 High ng/L hs-cTnT 2Hr Delta from Baseline -9 ng/L 06/23/25 1410 TROPONIN-T HIGH SENSITIVITY BASELINE W/ REFLEX Collected: 06/23/25 1328 Final result Specimen: Blood, Venous iw-yHhhwlane-M 92 High ng/L 06/23/25 1358 BASIC METABOLIC [...] arch aneurysm. No pneumothorax. Small left and ksfnl-yx-auffbnjl right pleural effusions. Emphysema. Opacities dependently in [...] review; Final Interpretation by physician to follow. [facility] Test Date: 2025-06-23 Pat Name: SKYLER BAUTISTA Department: DEPID Room: 03 Gender: Female [employer]: Femi : 1940 Requested By: STEPHAN Earl Order Number: [id number] Reading MD: Measurements Intervals [place] Rate: 139 P: 0 CT: 0 QRS: 65 QRSD: 82 T: 26 [...] were not included. 06/26/2025 Skyler Bautista 1940 [id number] Reason for Consult: Urinary retention Requesting Physician: Duong Vitale MD History Obtained From: Patient, chart review HISTORY OF PRESENT ILLNESS: The patient is a 84 y.o. female with a PMHx of PAD, CHF, Afib, CKD, DM, admitted on 06/23/2025 to [facility] for AFIB with RVR. She is currently in ICU for AFIB with tachycardia, seizure like activity, acute on chronic HF. Urology has been consulted for Urinary Retention. Patient with elevated PVRs, has been straight cath for 850cc several times since admission. Indwelling garrido placed last night, 06/25/2025, by WORKERS COMPENSATION CLAIMS ASSISTANT. Of note, the patient was seen by [...] Knee Amputation; Surgeon: Vargas Wolf MD; Location: [facility] MAIN OR; Service: Vascular CARDIAC CATHETERIZATION [...] IR REVAS FEM POP ART UNILAT W SCIENTIFIC RESEARCH ASSOCIATE 01/30/2025 IR REVAS FEM POP ART UNILAT W SCIENTIFIC RESEARCH ASSOCIATE 01/30/2025 Vargas Wolf MD EDG IR IR [...] CHF (congestive heart failure) (HCC) Diabetes mellitus ([facility]) not currently on meds,rehab discontued Difficult intravenous access possible use of iv therapy/ultrasound to help with venous access. RIVERA (dyspnea on exertion) Encounter for blood transfusion Fatty liver Glaucoma Heartburn Hyperlipidemia Hypertension Liver disease Mixed hyperlipidemia Peripheral vascular disease Renal disorder Renal insufficiency Shortness of breath Sleep apnea pt has cpap, but is not using. Stroke ([facility]) pt's states around 3 years ago. 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 [place] the contents of one device (0.1mL) into [...] AM EDTAssociated Order(s): IP CONSULT TO MEDICAL SENIOR PROCUREMENT MANAGER Images from the original note were not included. PULMONARY / CRITICAL CARE CONSULT NOTE Spencer Luna, RESEARCH ATTORNEY 06/24/2025 Patient: Skyler Bautista 84 y.o. female Date of Admission: 06/23/2025 Admitting Provider: Duong Vitale MD CC: Chief Complaint Patient presents with Atrial Fibrillation a fib rvr from [facility]. they report HR of 180, per squad HR 103. Skyler Bautista is a(n)84 y.o. female is being evaluated following ICU admission for acute hypoxic respiratory failure, seizures and bradycardia. HPI: Ms. Bautista is an 84 year old female with a PMHx significant for A-fib, PE, HFpEF, subarachnoid hemorrhage, TBI, T2DM, CKD, PVD, and recent left AKA. [facility] at a [facility] after recent admission for AKA with complaints [...] IR REVAS FEM POP ART UNILAT W SCIENTIFIC RESEARCH ASSOCIATE 01/30/2025 IR REVAS FEM POP ART UNILAT W SCIENTIFIC RESEARCH ASSOCIATE 01/30/2025 Vargas Wolf MD EDG IR IR [...] true Transportation Needs: No Transportation Needs (06/23/2025) [facility] IP Transportation In the past 12 months, has lack of reliable transportation kept you from medical appointments, meetings, work or from getting things needed for daily living?: No Physical Activity: Inactive (06/23/2025) Exercise Vital Sign Days of Exercise per Week: 0 days Minutes of Exercise per Session: 0 min Stress: No Stress Concern Present (06/23/2025) [place] [facility] - Occupational Stress Questionnaire Feeling of Stress : Not at all Social Connections: Low Risk (10/30/2023) Received from [employer] ([place], [place], [place], [place]) Family and Community Support Help with Day to Day Activities: Not on file Feeling Lonely or Isolated: Not on file Intimate Partner Violence: Not At Risk (08/06/2024) Received from [facility] Humiliation, Afraid, Rape, and Kick questionnaire Fear of Current or Ex-Partner: No Emotionally Abused: No Physically Abused: No Sexually Abused: No Housing Stability: Low Risk (08/06/2024) Received from [facility] Housing Stability Vital Sign Unable to [...] fUROsemide 40 mg Intravenous Daily Insulin Calculator (WEB PRODUCTION ASSISTANT) - FSBS (Correction Only) Intake Input 1 [...] 0 Taking nalOXone (NARCAN) 4 mg/actuation Nasl [place], Non-Aerosol 0.1 mL by Nasal route as needed for OpioidReversal. [place] the contents of one device (0.1mL) into [...] Date 06/24/25 0700 - 06/25/25 0659 Shift [id number] [id number] [id number] 24 Hour Total INTAKE I.V.(mL/kg/hr) 4.5 4.5 [...] Ghotra Test Date: 2025-06-24 Pat Name: SKYLER NICOLEVAN Department: DEPID Room: [facility] Gender: Female [employer]: Reaz : 1940 Requested By: DONNIE ESQUEDA Order Number: [id number] Reading MD: Sukh Garner Measurements Intervals [place] Rate: 54 P: 0 CT: 0 QRS: 39 QRSD: 89 T: 0 [...] Pat Name: SKYLER BAUTISTA Department: DEPID Room: [facility] Gender: Female [employer]: Femi : 1940 Requested By: STEPHAN Earl Order Number: [id number] Ivone MD: Jaycob Sandoval Measurements Intervals [place] Rate: 139 P: 0 CT: 0 QRS: 65 QRSD: 82 T: 26 [...] using Isovue 370IV contrast as recorded in [email or web address]. 2-D multiplanar reconstructions and 3-D MIP reconstructions reviewed. Dose 1 : CT DLP Total : 109.65 mGycm DLP Spiral Max : 96.21 mGycm Maximum CTDI Vol : 9.53 mGy FINDINGS: Adequate visualization of the pulmonary arteries to the segmental/subsegmental level. No acute pulmonary embolism. No aortic arch aneurysm. No pneumothorax. Small left and hjldu-vn-xphwhvsk right pleural effusions. Emphysema. Opacities dependently in [...] ordered Insulin Regimen: Q4H CCI Last BM: SCIENTIFIC RESEARCH ASSOCIATE Assessment Acute hypoxic respiratory failure Seizure Atrial [...] GI prophylaxis: Protonix CODE status: DNR Limited RESEARCH ATTORNEY critical care time: 17 minutes Spencer Luna [...] assessment, and discussed the plan with the DIRECTOR OF TEACHING AND LEARNING. Please see my note below for additional [...] 06/23* forshortness of breath. [facility] at [facility] recovering from recent AKA and developed shortness of breath for four days SCIENTIFIC RESEARCH ASSOCIATE. In the ED she was noted to [...] Carotid artery occlusion CHF (congestive heart failure) ([facility]) Diabetes mellitus (HCC) not currently on meds,rehab discontued Difficult intravenous access possible use of iv therapy/ultrasound to help with venous access. RIVERA (dyspnea on exertion) Encounter for blood transfusion Fatty liver Glaucoma Heartburn Hyperlipidemia Hypertension Liver disease Mixed hyperlipidemia Peripheral vascular disease Renal disorder Renal insufficiency Shortness of breath Sleep apnea pt has cpap, but is not using. Stroke ([facility]) pt's states around 3 years ago. Urinary incontinence Urinary tract infection SCIENTIFIC RESEARCH ASSOCIATE Medications: Prior to Admission medications Medication Sig [...] Montiel MD nalOXone (NARCAN) 4 mg/actuation Nasl [place], Non-Aerosol 0.1 mL by Nasal route as needed for OpioidReversal. [place] the contents of one device (0.1mL) into [...] 40 mg Intravenous BID Diuretic Insulin Calculator (WEB PRODUCTION ASSISTANT) - FSBS (Correction Only) Intake Input 1 [...] Knee Amputation; Surgeon: Vargas Wolf MD; Location: [facility] MAIN OR; Service: Vascular CARDIAC CATHETERIZATION [...] IR REVAS FEM POP ART UNILAT W SCIENTIFIC RESEARCH ASSOCIATE 01/30/2025 IR REVAS FEM POP ART UNILAT W SCIENTIFIC RESEARCH ASSOCIATE 01/30/2025 Vargas Wolf MD EDG IR IR [...] Active Problem List Diagnosis Coronary arteriosclerosis in [place] artery // Hx of CABG Closed nondisplaced [...] left foot Exostosis of toe Atherosclerosis of [place] artery of extremity Abscess of toe of [...] most recent cardiovascular imaging studies available in [facility] EMR were reviewed at time of [...] pleural effusions and dependent opacities - atelectasis -SCIENTIFIC RESEARCH ASSOCIATE lasix PRN -Currently on IV diuresis this admission -Volume status appears to be improving - likely transition to PO tomorrow Coronary Artery Disease -Remote history of CABG and subsequent PCIs -SCIENTIFIC RESEARCH ASSOCIATE lipitor 40 mg, coreg 25 mg BID, ranexa 500 mg BID History of PE -No SCIENTIFIC RESEARCH ASSOCIATE AC with history of ICH Elevated Troponin -Troponin 92, 83 -EKG afib RVR -ECHO pending Type 2 Diabetes -A1c 5.3 Hypertension -SCIENTIFIC RESEARCH ASSOCIATE coreg 25 mg BID Hyperlipidemia -SCIENTIFIC RESEARCH ASSOCIATE lipitor 40 mg Peripheral Vascular Disease -s/p recent left AKA Plan: Check ECHO Holding rate slowing medications Continue telemetry Reduce IV diuresis to daily - likely transition to PO tomorrow May need eventual EP consult for consideration of PPM Further input from Dr. Pascual Harris, RESEARCH ATTORNEY Heart and Vascular 06/24/2025 Disposition Perspective - [...] as of 05/24/2025, who was [facility] from [facility] with rapid atrial fibrillation and acute hypoxic respiratory failure. A fib w/ RVR on admission, placed on dilt gtt, became bradycardic and hypotension, had subsequent PEA arrest, now s/p ETT and left IJ central line. ECG on admission w/ rapid atrial fibrillation, possible old anteroseptal AR Hs Trop 92-83 NT Pro BNP [facility] 11/25/2022- 1. CAD s/p CABG 2 [...] comorbidities, overall guarded prognosis. Sukh Garner DO, [facility] documented in this encounter ED Notes * Bart Fallon - 06/23/2025 3:44 PM EDT Lab called and said patient's mint green top needs redrawn. * Bart Fallon - 06/23/2025 3:42 PM EDT Paged cardiology about consult on patient. * Stephan Rodriguez MD - 06/23/2025 1:13 PM EDT Chief Complaint Patient presents with Atrial Fibrillation [facility] fib [facility]. they report HR of 180, per squad HR 103. This is an 84-year-old female with a history of atrial fibrillation, diabetes mellitus, hypertension, CHF, peripheral vascular disease who presents to the emergency department by squad from the [facility] for evaluation. The patient has been short of breath for the last 4 to 5 days. She states that it is better when they have placed her on oxygen, but she is not normally on oxygen. Her heart rates were apparently in the 180s at the [facility] per [facility]cc. EMS states that her heart rates are [...] Montiel MD nalOXone (NARCAN) 4 mg/actuation Nasl [place], Non-Aerosol 0.1 mL by Nasal route as needed for OpioidReversal. [place] the contents of one device (0.1mL) into [...] has cpap, but is not using. Stroke ([facility]) pt's states around 3 years ago. Urinary [...] IR REVAS FEM POP ART UNILAT W SCIENTIFIC RESEARCH ASSOCIATE 01/30/2025 IR REVAS FEM POP ART UNILAT W SCIENTIFIC RESEARCH ASSOCIATE 01/30/2025 Vargas Wolf MD EDG IR IR [...] present. Musculoskeletal: Comments: There is a left cxuyj-ykj-bnxk amputation. Skin: Findings: No erythema. Neurological: General: [...] arch aneurysm. No pneumothorax. Small left and hnsji-nb-aayfvahd right pleural effusions. Emphysema. Opacities dependently in [...] BASELINE W/ REFLEX Result Value Ref Range hn-uTvifgtxy-X 92 (H) <14 ng/L Narrative Ingestion of [...] BAUTISTA Department: DEPID Room: 03 Gender: Female [employer]: Femi : 1940 Requested By: STEPHAN Earl Order Number: [id number] Reading MD: Measurements Intervals [place] Rate: 139 P: 0 CT: 0 QRS: 65 QRSD: 82 T: 26 QT: 286 QTc: 436 Interpretive Statements ATRIAL FIBRILLATION WITH RAPID VENTRICULAR RESPONSE SEPTAL MYOCARDIAL INFARCTION, PROBABLY OLD ED Course: Appropriate laboratory and radiology studies reviewed ED Course as of 06/23/25 1533 Stephan Rodriguez's Documentation Sun Jun 23, 2025 1323 The patient was seen and examined. History was obtained from the patient, EMS, the [facility], and review of previous medical records. Differential [...] performed to rule out pulmonary embolism. 1417 vs-gMpzvatbi-P(!): 92 Troponin elevated. This will be trended. [...] time Total time critical care 38 minutes [facility] Medical Decision Making Problems Addressed: [...] injury Hold anticoagulation. Dispo: Discussed with RN, property caretaker. Awaiting facility in [place]. * Utilization Review Notes - Dacia Peters RN - 06/27/2025 12:23 PM EDT CONT'D STAY REVIEW ON [place] 4NW TELEMETRY FOR Acute respiratory failure with hypoxia, RESP ARREST, AFIB WITH RVR + IP ORDER ON CHART ADMIT 06/23/25 OBS; INPATIENT 06/24/25 EXTUBATED 06/25/25 TELEMETRY, [id number]-[id number]-VASCULAR SURGERY FOLLOWING, INSULIN PROTOCOL, KEPPRA PO BID [...] * Plan of Care - Charlee Turner CCC-SUMATRA OPENER - 06/26/2025 11:03 AM EDT Clinical Swallow [...] Medical History Afib RVR on admission from [facility] for rehab post AKA on Lleg [...] Goal none voiced Patient/Family Education Completed Yes SUMATRA OPENER Recommendation No post discharge therapy recommended Frequency/Follow [...] through ED Atrial Fibrillation-a fib rvr from [facility]. they report HR of 180, per squad [...] EDT Office Visit [facility] S[facility] Edg [address] [place] [address] [place] [id number] Vargas Wolf MD [address] [place] [id number] Pending Results Name Type Priority Associated [...] were not included. 06/26/2025 Skyler Bautista 1940 [id number] Reason for Consult: Urinary retention Requesting Physician: Duong Vitale MD History Obtained From: Patient, chart review HISTORY OF PRESENT ILLNESS: The patient is a 84 y.o. female with a PMHx of PAD, CHF, Afib,CKD, DM, admitted on 06/23/2025 to [facility] for AFIB with RVR. She iscurrently in ICU for AFIB with tachycardia, seizure like activity, acuteon chronic HF. Urology has been consulted for Urinary Retention. Patientwith elevated PVRs, has been straight cath for 850cc several times sinceadmission. Indwelling garrido placed last night, 06/25/2025, by WORKERS COMPENSATION CLAIMS ASSISTANT. Jossue, the patient was seen by our [...] IR REVAS FEM POP ART UNILAT W SCIENTIFIC RESEARCH ASSOCIATE 01/30/2025 IR REVAS FEM POP ART UNILAT W SCIENTIFIC RESEARCH ASSOCIATE 01/30/2025 Vargas Wolf MD EDG IR IR [...] Mills DPM;Location: ED MAIN OR; Service: Podiatry Medications: Scheduled Meds: [...] 12:16 PM EDT IP CONSULT TO MEDICAL SENIOR PROCUREMENT MANAGER Routine 06/24/2025 11:57 AM EDT Procedure Note - Spencer Luna, STEPHANIE - 06/24/2025 11:46 AM EDTThis note is in progress. Images from the original note were not included. PULMONARY / CRITICAL CARE CONSULT NOTE Spencer Luna, STEPHANIE 06/24/2025 Patient: Skyler Bautista 84 y.o. female Date of Admission: 06/23/2025 Admitting Provider: Duong Vitale MD CC: Chief Complaint Patient presents with Atrial Fibrillation [facility]. they report HR of 180, per squad HR 103. Skyler Bautista is a(n)84 y.o. female is being evaluated following ICUadmission for acute hypoxic respiratory failure, seizures andbradycardia. HPI: Ms. Bautista is an 84 year old female with a PMHx significant forA-fib, PE, HFpEF, subarachnoid hemorrhage, TBI, T2DM, CKD, PVD, and recentleft AKA. [facility] a [facility] after recent admission for AKA withcomplaints of [...] with Afib with RVR and rate in sfv089's. Trops: 92 -> 83, K: 4.5, creatinine: [...] has cpap, but is not using. Stroke ([facility]) pt's states around 3 years ago. Urinary [...] IR REVAS FEM POP ART UNILAT W SCIENTIFIC RESEARCH ASSOCIATE 01/30/2025 IR REVAS FEM POP ART UNILAT W SCIENTIFIC RESEARCH ASSOCIATE 01/30/2025 Vargas Wolf MD EDG IR IR [...] foot hallux amputation; Surgeon: Dacia Mills DPM;Location: [facility] MAIN OR; Service: Podiatry FH: No family [...] true Transportation Needs: No Transportation Needs (06/23/2025) [facility] Transportation In the past 12 months, has lack of reliable transportation kept you frommedical appointments, meetings, work or from getting things needed fordaily living?: No Physical Activity: Inactive (06/23/2025) Exercise Vital Sign Days of Exercise per Week: 0 days Minutes of Exercise per Session: 0 min Stress: No Stress Concern Present (06/23/2025) [place] [facility] - Occupational StressQuestionnaire Feeling of Stress : Not at all Social Connections: Low Risk (10/30/2023) Received from [employer] ([place], [place], [place], [place]) Family and Community Support Help with Day to Day Activities: Not on file Feeling Lonely or Isolated: Not on file Intimate Partner Violence: Not At Risk (08/06/2024) Received from [facility] Humiliation, Afraid, Rape, and Kick questionnaire Fear of Current or Ex-Partner: No Emotionally Abused: No Physically Abused: No Sexually Abused: No Housing Stability: Low Risk (08/06/2024) Received from [facility] Housing Stability Vital Sign Unable to [...] fUROsemide 40 mg Intravenous Daily Insulin Calculator (WEB PRODUCTION ASSISTANT) - FSBS (Correction Only) Intake Input 1 [...] 0 Taking nalOXone (NARCAN) 4 mg/actuation Nasl [place], Non-Aerosol 0.1 mL by Nasalroute as needed for Opioid Reversal. [place] the contents of one device(0.1mL) into one [...] Date 06/24/25 0700 - 06/25/25 0659 Shift 0264-9714 [id number] [id number] 24 Hour Total INTAKE I.V.(mL/kg/hr) 4.5 4.5 [...] EK EKG 12 LEAD Result Date: 06/24/2025 [facility] Date:2025-06-24 Pat Name: SKYLER BAUTISTA Department: DEPIDPatient ID: [id number] Room: [facility] Gender:Female [employer]: Reza : [id number] By: DONNIE ESQUEDA Order Number: [id number] MD: Sukh GarnerMeasurements Intervals [place] Rate:54 P: 0 CT: 0QRS: 39 QRSD: 89 T:0 QT: 462 [...] Pat Name: SKYLER BAUTISTA Department: DEPIDPatient ID: [id number] Room: [facility] Gender:Female [employer]: Femi : [id number] By: STEPHAN Earl Order Number: [id number] MD: Jaycob Sandoval MeasurementsIntervals [place] Rate: 139P: 0 CT: 0QRS: 65 QRSD: 82 T: 26QT: 286 QTc: 436InterpretiveStatements ATRIAL FIBRILLATION WITH RAPID VENTRICULAR RESPONSE POSSIBLEANTEROSEPTAL MYOCARDIAL INFARCTION, PROBABLY OLD Electronically Signed [id number] 19:29:[address] ANGIOGRAM [...] aortic arch aneurysm. Nopneumothorax. Small left and zmazq-qy-ieectmbs right pleural effusions.Emphysema. Opacities dependently in the [...] ordered Insulin Regimen: Q4H CCI Last BM: SCIENTIFIC RESEARCH ASSOCIATE Assessment Acute hypoxic respiratory failure Seizure Atrial [...] GI prophylaxis: Protonix CODE status: DNR Limited RESEARCH ATTORNEY critical care time: 17 minutes Spencer Luna [...] -HCT now -Start Keppra 750 mg BID Rsuty Sawyer MD Neurology 12:52 PM 06/24/25 Thank [...] Patch 0 nalOXone (NARCAN) 4 mg/actuation Nasl [place], Non-Aerosol 0.1 mL by Nasalroute as needed for Opioid Reversal. [place] the contents of one device(0.1mL) into one [...] 06/23/2025 3:41 PM EDT Procedure Note - Pascual Sukh Cabello, DO - 06/24/2025 10:18 AM EDTThis note is in progress. Heart & Vascular Consult Note PATIENT: Skyler Bautista 0 PCP: No Pcp, Per Patient I would like to thank Duong Vitale MD for requesting me to see Roycecarol for cardiac consultation for bradycardia. History provided by: EMR, son History limited by: intubated and sedated History of Present Illness: Skyler Bautista is a 84 y.o. female with a past medical history included butnot limited to afib, PE, HFpEF, subarachnoid hemorrhage, TBI, T2DM, CKD,PVD, recent left AKA who was admitted on 06/23* for shortness of breath.[facility] and developed shortnessof breath for four days SCIENTIFIC RESEARCH ASSOCIATE. In the ED she was noted to [...] has cpap, but is not using. Stroke ([facility]) pt's states around 3 years ago. Urinary incontinence Urinary tract infection SCIENTIFIC RESEARCH ASSOCIATE Medications: Prior to Admission medications Medication Sig [...] Montiel MD nalOXone (NARCAN) 4 mg/actuation Nasl [place], Non-Aerosol 0.1 mL by Nasalroute as needed for Opioid Reversal. [place] the contents of one device(0.1mL) into one [...] 40 mg Intravenous BID Diuretic Insulin Calculator (WEB PRODUCTION ASSISTANT) - FSBS (Correction Only) Intake Input 1 [...] IR REVAS FEM POP ART UNILAT W SCIENTIFIC RESEARCH ASSOCIATE 01/30/2025 IR REVAS FEM POP ART UNILAT W SCIENTIFIC RESEARCH ASSOCIATE 01/30/2025 Vargas Wolf MD EDG IR IR [...] Active Problem List Diagnosis Coronary arteriosclerosis in [place] artery // Hx of CABG Closed nondisplaced [...] left foot Exostosis of toe Atherosclerosis of [place] artery of extremity Abscess of toe of [...] most recent cardiovascular imaging studies available in [facility] EMR werereviewed at time of consultation [...] Bilateral pleural effusions and dependent opacities -atelectasis -SCIENTIFIC RESEARCH ASSOCIATE lasix PRN -Currently on IV diuresis this admission -Volume status appears to be improving - likely transition to PO tomorrow Coronary Artery Disease -Remote history of CABG and subsequent PCIs -SCIENTIFIC RESEARCH ASSOCIATE lipitor 40 mg, coreg 25 mg BID, ranexa 500 mg BID History of PE -No SCIENTIFIC RESEARCH ASSOCIATE AC with history of ICH Elevated Troponin -Troponin 92, 83 -EKG afib RVR -ECHO pending Type 2 Diabetes -A1c 5.3 Hypertension -SCIENTIFIC RESEARCH ASSOCIATE coreg 25 mg BID Hyperlipidemia -SCIENTIFIC RESEARCH ASSOCIATE lipitor 40 mg Peripheral Vascular Disease -s/p recent left AKA Plan: Check ECHO Holding rate slowing medications Continue telemetry Reduce IV diuresis to daily - likely transition to PO tomorrow May need eventual EP consult for consideration of PPM Further input from Dr. Pascual Harris, STEPHANIE Heart and Vascular 06/24/2025 Disposition Perspective - [...] AKA as of 05/24/2025, [facility] and acutehypoxic respiratory failure. A fib w/ RVR on admission, placed on dilt gtt, became bradycardic andhypotension, had subsequent PEA arrest, now s/p ETT and left IJ centralline. ECG on admission w/ rapid atrial fibrillation, possible old anteroseptalMI Hs Trop 92-83 NT Pro BNP [facility] 11/25/2022- 1. CAD s/p CABG 2 [...] GLUCOSE METER POC (07/02/2025 8:08 AM EDT) [facility] Glucose Meter POC 112(H) 70 - 100 mg/dL 07/02/2025 8:11 AM EDT [facility] Sample Type Capillary 07/02/2025 8:11 AM EDT [facility] Patient Status Non-Critical Patient 07/02/2025 8:11 AM EDT [facility] Blood BLOOD SPECIMEN / Unknown 07/02/2025 8:08 AM EDT 07/02/2025 8:11 AM EDT Duong Vitale MD POINT OF CARE TEST ORDERABLES Final Result Performing Organization Address City/[facility]/ZIP Co de Phone Number [facility] [address] [place] [address] * (ABNORMAL) GLUCOSE METER POC (07/01/2025 8:19 PM EDT) Glucose Meter POC 123(H) 70 - 100 mg/dL 07/01/2025 8:20 PM EDT [facility] Sample Type Capillary 07/01/2025 8:20 PM EDT [facility] Patient Status Non-Critical Patient 07/01/2025 8:20 PM EDT [facility] Blood BLOOD SPECIMEN / Unknown 07/01/2025 8:19 PM EDT 07/01/2025 8:20 PM EDT Duong Vitale MD POINT OF CARE TEST ORDERABLES Final Result Performing Organization Address [facility] Co de Phone Number [facility] [address] [place] [address] * ECG AND WAVEFORMS - TELEMETRY (07/01/2025 7:05 PM EDT) ECG INTERPRET Sinus Arrythmia [facility] 07/01/2025 7:05 PM EDT Narrative [facility] - 07/01/2025 7:37 PM EDT ROUTINE/PAC/PVC/af CT 0.18 QRS 0.09 RR 0.58 QT 0.35 QTc 0.46 See Clinical Report link for waveform capture Unknown Provider POINT OF CARE CARDIOLOGY Final Result Performing Organization Address City/[facility]/ZIP Co de Phone Number [facility] [address] [place] [address] * (ABNORMAL) GLUCOSE METER POC (07/01/2025 5:28 PM EDT) Glucose Meter POC 122(H) 70 - 100 mg/dL 07/01/2025 5:30 PM EDT [facility] Sample Type Capillary 07/01/2025 5:30 PM EDT [facility] Patient Status Non-Critical Patient 07/01/2025 5:30 PM EDT [facility] Blood BLOOD SPECIMEN / Unknown 07/01/2025 5:28 PM EDT 07/01/2025 5:30 PM EDT Duong Vitale MD POINT OF CARE TEST ORDERABLES Final Result Performing Organization Address [facility] de Phone Number [facility] [address] [place] [address] * (ABNORMAL) GLUCOSE METER POC (07/01/2025 11:44 AM EDT) Glucose Meter POC 143(H) 70 - 100 mg/dL 07/01/2025 11:45 AM EDT [facility] Sample Type Capillary 07/01/2025 11:45 AM EDT [facility] Patient Status Non-Critical Patient 07/01/2025 11:45 AM EDT [facility] Blood BLOOD SPECIMEN / Unknown 07/01/2025 11:44 AM EDT 07/01/2025 11:45 AM EDT Duong Vitale MD POINT OF CARE TEST ORDERABLES Final Result Performing Organization Address City/[facility] de Phone Number [facility] [address] [place] [address] * (ABNORMAL) COMPREHENSIVE METABOLIC PANEL (07/01/2025 10:56 AM EDT) Sodium 138 136 - 145 mmol/L 07/01/2025 11:22 AM EDT [facility] Potassium 3.6 3.5 - 5.0 mmol/L 07/01/2025 11:22 AM EDT [facility] Chloride 104 98 - 107 mmol/L 07/01/2025 11:[facility] Total CO2 22 22 - 29 mmol/L 07/01/2025 11:22 AM [facility] Anion Gap 12 7 - 16 mmol/L 07/01/2025 11:22 AM [facility] Calcium 8.9 8.8 - 10.4 mg/dL 07/01/2025 11:22 AM [facility] Glucose Lvl 128(H) 70 - 99 mg/dL 07/01/2025 11:22 AM [facility] BUN 25(H) 8 - 23 mg/dL 07/01/2025 11:22 AM [facility] Creatinine 0.82 0.51 - 1.30 mg/dL 07/01/2025 11:22 AM [facility] Albumin 3.7 3.2 - 4.6 gm/dL 07/01/2025 11:22 AM [facility] Total Protein 7.1 6.4 - 8.3 gm/dL 07/01/2025 11:22 AM EDT [facility] Bili Total 0.6 0.2 - 1.3 mg/dL 07/01/2025 11:22 AM [facility] ALT 18 <=41 U/L 07/01/2025 11:22 AM [facility] AST 35 <=40 U/L 07/01/2025 11:22 AM [facility] Alk Phos 151(H) 36 - 123 U/L 07/01/2025 11:22 AM [facility] eGFR (CKD-EPIcr 2020) 70 >=60 mL/min/1.7 3 m2 07/01/2025 11:22 AM [facility] Comment:Estimated GFR was ca lculated using the CKD-EPIcr (2020) equation refit without race. The equation is recommended by the [employer] - [employer]ph[employer] Task Force. Blood VENOUS BLOOD / Unknown Venipuncture / Unknown 07/01/2025 10:56 AM EDT 07/01/2025 10:59 AM EDT us Jacob Horowitz MD CHEMISTRY ORDERABLES Final Resul t Performing Organization Address [facility] de Phone Number [facility] [address] [place] [address] * ECG AND WAVEFORMS - TELEMETRY (07/01/2025 7:07 AM EDT) ECG INTERPRET Atrial Fib [facility] 07/01/2025 7:07 AM EDT Narrative [facility] - 07/01/2025 7:32 AM EDT ROUTINE (AP) QRS 0.13 See Clinical Report link for waveform capture us Unknown Provider POINT OF CARE CARDIOLOGY Final Result Performing Organization Address [facility] de Phone Number [facility] [address] [place] [address] * (ABNORMAL) GLUCOSE METER POC (06/30/2025 9:11 PM EDT) [facility] Glucose Meter POC 149(H) 70 - 100 mg/dL 06/30/2025 9:12 PM EDT [facility] Sample Type Capillary 06/30/2025 9:12 PM EDT [facility] Patient Status Non-Critical Patient 06/30/2025 9:12 PM EDT [facility] Blood BLOOD SPECIMEN / Unknown 06/30/2025 9:11 PM EDT 06/30/2025 9:12 PM EDT us Duong Vitale MD POINT OF CARE TEST ORDERABLES Final Result Performing Organization Address [facility] de Phone Number [facility] [address] [place] [address] * ECG AND WAVEFORMS - TELEMETRY (06/30/2025 7:00 PM EDT) ECG INTERPRET Atrial Flutter [facility] 06/30/2025 7:00 PM EDT Narrative [facility] - 06/30/2025 7:57 PM EDT Routine 1900/PVC QRS 0.09 See Clinical Report link for waveform capture us Unknown Provider POINT OF CARE CARDIOLOGY Final Result Performing Organization Address City/[facility]/ZIP Co de Phone Number [facility] [address] [place] [address] * (ABNORMAL) GLUCOSE METER POC (06/30/2025 4:26 PM EDT) Glucose Meter POC 145(H) 70 - 100 mg/dL 06/30/2025 4:27 PM EDT [facility] Sample Type Capillary 06/30/2025 4:27 PM EDT [facility] Patient Status Non-Critical Patient 06/30/2025 4:27 PM EDT [facility] Blood BLOOD SPECIMEN / Unknown 06/30/2025 4:26 PM EDT 06/30/2025 4:27 PM EDT Duong Vitale MD POINT OF CARE TEST ORDERABLES Final Result Performing Organization Address [facility] Co de Phone Number [facility] [address] [place] [address] * (ABNORMAL) GLUCOSE METER POC (06/30/2025 12:22 PM EDT) Glucose Meter POC 136(H) 70 - 100 mg/dL 06/30/2025 12:24 PM EDT [facility] Sample Type Capillary 06/30/2025 12:24 PM EDT [facility] Patient Status Non-Critical Patient 06/30/2025 12:24 PM EDT [facility] Blood BLOOD SPECIMEN / Unknown 06/30/2025 12:22 PM EDT 06/30/2025 12:24 PM EDT Duong Vitale MD POINT OF CARE TEST ORDERABLES Final Result Performing Organization Address [facility] Co de Phone Number [facility] [address] [place] [address] * (ABNORMAL) COMPREHENSIVE METABOLIC PANEL (06/30/2025 10:18 AM EDT) Sodium 140 136 - 145 mmol/L 06/30/2025 10:49 AM [facility] Potassium 3.7 3.5 - 5.0 mmol/L 06/30/2025 10:49 AM [facility] Chloride 105 98 - 107 mmol/L 06/30/2025 10:49 AM [facility] Total CO2 25 22 - 29 mmol/L 06/30/2025 10:49 AM [facility] Anion Gap 10 7 - 16 mmol/L 06/30/2025 10:49 AM [facility] Calcium 8.8 8.8 - 10.4 mg/dL 06/30/2025 10:49 AM [facility] Glucose Lvl 120(H) 70 - 99 mg/dL 06/30/2025 10:49 AM [facility] BUN 21 8 - 23 mg/dL 06/30/2025 10:49 AM [facility] Creatinine 0.83 0.51 - 1.30 mg/dL 06/30/2025 10:49 AM [facility] Albumin 3.6 3.2 - 4.6 gm/dL 06/30/2025 10:49 AM [facility] Total Protein 6.8 6.4 - 8.3 gm/dL 06/30/2025 10:49 AM [facility] Bili Total 0.5 0.2 - 1.3 mg/dL 06/30/2025 10:49 AM [facility] ALT 19 <=41 U/L 06/30/2025 10:49 AM [facility] AST 35 <=40 U/L 06/30/2025 10:49 AM [facility] Alk Phos 145(H) 36 - 123 U/L 06/30/2025 10:49 AM [facility] eGFR (CKD-EPIcr 2020) 69 >=60 mL/min/1.7 3 m2 06/30/2025 10:49 AM [facility] Comment:Estimated GFR was ca lculated using the CKD-EPIcr (2020) equation refit without race. The equation is recommended by the [employer] - [place] [employer] Neph[employer] Task Force. Blood VENOUS BLOOD / Unknown Venipuncture / Unknown 06/30/2025 10:18 AM EDT 06/30/2025 10:23 AM EDT Jacob Horowitz MD CHEMISTRY ORDERABLES Final Resul t Performing Organization Address [facility] Co de Phone Number [facility] [address] [place] [address] * (ABNORMAL) GLUCOSE METER POC (06/30/2025 8:26 AM EDT) Glucose Meter POC 114(H) 70 - 100 mg/dL 06/30/2025 8:27 AM EDT [facility] Sample Type Capillary 06/30/2025 8:27 AM EDT [facility] Patient Status Non-Critical Patient 06/30/2025 8:27 AM EDT [facility] Blood BLOOD SPECIMEN / Unknown 06/30/2025 8:26 AM EDT 06/30/2025 8:27 AM EDT us Duong Vitale MD POINT OF CARE TEST ORDERABLES Final Result Performing Organization Address [facility] de Phone Number [facility] [address] [place] [address] * ECG AND WAVEFORMS - TELEMETRY (06/30/2025 7:03 AM EDT) ECG INTERPRET Atrial Fib [facility] Comment:with a pvc 06/30/2025 7:03 AM EDT Narrative [facility] - 06/30/2025 7:39 AM EDT ROUTINE W/ PVC (AP) QRS 0.10 See Clinical Report link for waveform capture us Unknown Provider POINT OF CARE CARDIOLOGY Final Result Performing Organization Address [facility] Co de Phone Number [facility] [address] [place] [address] * (ABNORMAL) GLUCOSE METER POC (06/29/2025 9:25 PM EDT) Glucose Meter POC 134(H) 70 - 100 mg/dL 06/29/2025 9:27 PM EDT [facility] Sample Type Capillary 06/29/2025 9:27 PM EDT [facility] Patient Status Non-Critical Patient 06/29/2025 9:27 PM EDT [facility] Blood BLOOD SPECIMEN / Unknown 06/29/2025 9:25 PM EDT 06/29/2025 9:27 PM EDT Duong Vitale MD POINT OF CARE TEST ORDERABLES Final Result [facility] [address] [place] [address] * ECG AND WAVEFORMS - TELEMETRY (06/29/2025 7:00 PM EDT) [facility] ECG INTERPRET Atrial Flutter [facility] 06/29/2025 7:00 PM EDT Narrative [facility] - 06/29/2025 9:49 PM EDT Routine 1900/Quadgem PVC/qj QRS 0.10 See Clinical Report link for waveform capture Unknown Provider POINT OF CARE CARDIOLOGY Final Result [facility] [address] [place] [address] * (ABNORMAL) GLUCOSE METER POC (06/29/2025 5:50 PM EDT) Glucose Meter POC 185(H) 70 - 100 mg/dL 06/29/2025 5:52 PM EDT [facility] Sample Type Capillary 06/29/2025 5:52 PM EDT [facility] Patient Status Non-Critical Patient 06/29/2025 5:52 PM EDT [facility] Blood BLOOD SPECIMEN / Unknown 06/29/2025 5:50 PM EDT 06/29/2025 5:52 PM EDT us Duong Vitale MD POINT OF CARE TEST ORDERABLES Final Result [facility] [address] [place], [place] [id number] * (ABNORMAL) COMPREHENSIVE METABOLIC PANEL (06/29/2025 11:22 AM EDT) Sodium 139 136 - 145 mmol/L 06/29/2025 11:57 AM EDT [facility] Potassium 4.1 3.5 - 5.0 mmol/L 06/29/2025 11:57 AM EDT [facility] Chloride 106 98 - 107 mmol/L 06/29/2025 11:57 AM EDT [facility] Total CO2 21(L) 22 - 29 mmol/L 06/29/2025 11:57 AM EDT [facility] Anion Gap 12 7 - 16 mmol/L 06/29/2025 11:57 AM EDT [facility] Calcium 8.9 8.8 - 10.4 mg/dL 06/29/2025 11:57 AM EDT [facility] Glucose Lvl 140(H) 70 - 99 mg/dL 06/29/2025 11:57 AM EDT [facility] BUN 17 8 - 23 mg/dL 06/29/2025 11:57 AM EDT [facility] Creatinine 0.74 0.51 - 1.30 mg/dL 06/29/2025 11:57 AM EDT [facility] Albumin 3.7 3.2 - 4.6 gm/dL 06/29/2025 11:57 AM EDT [facility] Total Protein 7.1 6.4 - 8.3 gm/dL 06/29/2025 11:57 AM EDT [facility] Bili Total 0.6 0.2 - 1.3 mg/dL 06/29/2025 11:57 AM EDT [facility] ALT 16 <=41 U/L 06/29/2025 11:57 AM EDT [facility] AST 39 <=40 U/L 06/29/2025 11:57 AM EDT [facility] Alk Phos 143(H) 36 - 123 U/L 06/29/2025 11:57 AM EDT [facility] eGFR (CKD-EPIcr 2020) 79 >=60 mL/min/1.7 3 m2 06/29/2025 11:57 AM EDT [facility] Comment:Estimated GFR was ca lculated using the CKD-EPIcr (2020) equation refit without race. The equation is recommended by the [employer] Kid[employer] - [place] [employer] Neph[employer] Task Force. Blood VENOUS BLOOD / Unknown Venipuncture / Unknown 06/29/2025 11:22 AM EDT 06/29/2025 11:36 AM EDT Jacob Horowitz MD CHEMISTRY ORDERABLES Final Resul t Performing Organization Address City/[facility]/ZIP Co de Phone Number [facility] [address] [place] [address] * (ABNORMAL) GLUCOSE METER POC (06/29/2025 10:28 AM EDT) Glucose Meter POC 113(H) 70 - 100 mg/dL 06/29/2025 10:29 AM EDT [facility] Sample Type Capillary 06/29/2025 10:29 AM EDT [facility] Patient Status Non-Critical Patient 06/29/2025 10:29 AM EDT [facility] Blood BLOOD SPECIMEN / Unknown 06/29/2025 10:28 AM EDT 06/29/2025 10:29 AM EDT us Duong Vitale MD POINT OF CARE TEST ORDERABLES Final Result [facility] [address] [place] [address] * ECG AND WAVEFORMS - TELEMETRY (06/29/2025 7:03 AM EDT) ECG INTERPRET Atrial Fib [facility] 06/29/2025 7:03 AM EDT Narrative [facility] - 06/29/2025 7:25 AM EDT ROUTINE-BB See Clinical Report link for waveform capture us Unknown Provider POINT OF CARE CARDIOLOGY Final Result Performing Organization Address [facility]/ZIP Co de Phone Number [facility] [address] [place] [address] * ECG AND WAVEFORMS - TELEMETRY (06/29/2025 5:17 AM EDT) ECG INTERPRET Atrial Fib [facility] 06/29/2025 5:17 AM EDT Narrative [facility] - 06/29/2025 5:18 AM EDT ADMIT W/ PVCS () QRS 0.06 See Clinical Report link for waveform capture us Unknown Provider POINT OF CARE CARDIOLOGY Final Result Performing Organization Address [facility] de Phone Number [facility] [address] [place] [address] * (ABNORMAL) GLUCOSE METER POC (06/28/2025 10:06 PM EDT) [facility] Glucose Meter POC 154(H) 70 - 100 mg/dL 06/28/2025 10:07 PM EDT [facility] Sample Type Capillary 06/28/2025 10:07 PM EDT [facility] Patient Status Non-Critical Patient 06/28/2025 10:07 PM EDT [facility] Blood BLOOD SPECIMEN / Unknown 06/28/2025 10:06 PM EDT 06/28/2025 10:07 PM EDT us Duong Vitale MD POINT OF CARE TEST ORDERABLES Final Result Performing Organization Address City/[facility] Co de Phone Number [facility] [address] [place] [address] * ECG AND WAVEFORMS - TELEMETRY (06/28/2025 7:21 PM EDT) ECG INTERPRET Atrial Fib [facility] Comment:with PVC. 06/28/2025 7:21 PM EDT Narrative [facility] - 06/28/2025 7:23 PM EDT ROUTINE (JM) QRS 0.07 See Clinical Report link for waveform capture us Unknown Provider POINT OF CARE CARDIOLOGY Final Result Performing Organization Address City/[facility]/ZIP Co de Phone Number [facility] [address] [place] [address] * (ABNORMAL) GLUCOSE METER POC (06/28/2025 5:07 PM EDT) Glucose Meter POC 136(H) 70 - 100 mg/dL 06/28/2025 5:09 PM EDT [facility] Sample Type Capillary 06/28/2025 5:09 PM EDT [facility] Patient Status Non-Critical Patient 06/28/2025 5:09 PM EDT [facility] Blood BLOOD SPECIMEN / Unknown 06/28/2025 5:07 PM EDT 06/28/2025 5:09 PM EDT Duong Vitale MD POINT OF CARE TEST ORDERABLES Final Result Performing Organization Address City/[facility] Co de Phone Number [facility] [address] [place] [address] * (ABNORMAL) GLUCOSE METER POC (06/28/2025 12:03 PM EDT) Glucose Meter POC 179(H) 70 - 100 mg/dL 06/28/2025 12:05 PM EDT [facility] Sample Type Capillary 06/28/2025 12:05 PM EDT [facility] Patient Status Non-Critical Patient 06/28/2025 12:05 PM EDT [facility] Blood BLOOD SPECIMEN / Unknown 06/28/2025 12:03 PM EDT 06/28/2025 12:05 PM EDT Duong Vitale MD POINT OF CARE TEST ORDERABLES Final Result Performing Organization Address City/[facility]/ZIP Co de Phone Number [facility] [address] [place] [address] * (ABNORMAL) COMPREHENSIVE METABOLIC PANEL (06/28/2025 11:26 AM EDT) [facility] Sodium 139 136 - 145 mmol/L 06/28/2025 11:55 AM [facility] Potassium 4.0 3.5 - 5.0 mmol/L 06/28/2025 11:55 AM [facility] Chloride 106 98 - 107 mmol/L 06/28/2025 11:55 AM [facility] Total CO2 23 22 - 29 mmol/L 06/28/2025 11:55 AM [facility] Anion Gap 10 7 - 16 mmol/L 06/28/2025 11:55 AM [facility] Calcium 8.6(L) 8.8 - 10.4 mg/dL 06/28/2025 11:55 AM [facility] Glucose Lvl 161(H) 70 - 99 mg/dL 06/28/2025 11:55 AM [facility] BUN 15 8 - 23 mg/dL 06/28/2025 11:55 AM [facility] Creatinine 0.80 0.51 - 1.30 mg/dL 06/28/2025 11:55 AM [facility] Albumin 3.7 3.2 - 4.6 gm/dL 06/28/2025 11:55 AM [facility] Total Protein 6.8 6.4 - 8.3 gm/dL 06/28/2025 11:55 AM [facility] Bili Total 0.6 0.2 - 1.3 mg/dL 06/28/2025 11:55 AM [facility] ALT 16 <=41 U/L 06/28/2025 11:55 AM [facility] AST 32 <=40 U/L 06/28/2025 11:55 AM [facility] Alk Phos 143(H) 36 - 123 U/L 06/28/2025 11:55 AM [facility] eGFR (CKD-EPIcr 2020) 72 >=60 mL/min/1.7 3 m2 06/28/2025 11:55 AM [facility] Comment:Estimated GFR was ca lculated using the CKD-EPIcr (2020) equation refit without race. The equation is recommended by the [employer] Kid[employer] - [place] [employer] Neph[employer] Task Force. Blood VENOUS BLOOD / Unknown Venipuncture / Unknown 06/28/2025 11:26 AM EDT 06/28/2025 11:30 AM EDT us Jacob Horowitz MD CHEMISTRY ORDERABLES Final Resul t Performing Organization Address City/[facility] Co de Phone Number [facility] [address] [place] [address] * PHOSPHORUS LEVEL (06/28/2025 11:26 AM EDT) Phosphorus 2.6 2.5 - 4.5 mg/dL 06/28/2025 11:55 AM EDT [facility] Blood VENOUS BLOOD / Unknown Venipuncture / Unknown 06/28/2025 11:26 AM EDT 06/28/2025 11:30 AM EDT us Jacob Horowitz MD CHEMISTRY ORDERABLES Final Resul t Performing Organization Address [facility] de Phone Number [facility] [address] [place] [address] * MAGNESIUM LEVEL (06/28/2025 11:26 AM EDT) Magnesium 1.8 1.6 - 2.4 mg/dL 06/28/2025 12:04 PM EDT [facility] Blood VENOUS BLOOD / Unknown Venipuncture / Unknown 06/28/2025 11:26 AM EDT 06/28/2025 11:30 AM EDT us Jacob Horowitz MD CHEMISTRY ORDERABLES Final Resul t Performing Organization Address [facility] de Phone Number [facility] [address] [place] [address] * (ABNORMAL) CBC WITH DIFF (06/28/2025 11:26 AM EDT) WBC 4.3 3.7 - 10.3 x10(3)/mcL 06/28/2025 11:33 AM EDT [facility] RBC 2.62(L) 3.90 - 5.20 x10(6)/mcL 06/28/2025 11:33 AM EDT [facility] Hgb 9.7(L) 11.2 - 15.7 g/dL 06/28/2025 11:33 AM EDT [facility] Hct 30.2(L) 34.0 - 45.0 % 06/28/2025 11:33 AM EDT [facility] MCV 115.3(H) 80.0 - 100.0 fL 06/28/2025 11:33 AM EDT [facility] MCH 37.0(H) 26.0 - 34.0 pg 06/28/2025 11:33 AM EDT [facility] MCHC 32.1 30.7 - 35.5 g/dL 06/28/2025 11:33 AM EDT [facility] RDW 18.9(H) <=14.9 % 06/28/2025 11:33 AM EDT [facility] Platelet 86(L) 155 - 369 x10(3)/mcL 06/28/2025 11:33 AM EDT [facility] MPV 11.8 8.8 - 12.5 fL 06/28/2025 11:33 AM EDT [facility] Neut Percent 52.1 % 06/28/2025 11:33 AM EDT [facility] Comment:Neutrophils equals s egs plus bands Imm Gran% 0.5 % 06/28/2025 11:33 AM EDT [facility] Comment:Automated count of m etamyelocytes, myelocytes and promyelocytes. Lymph Percent 40.1 % 06/28/2025 11:33 AM EDT [facility] [place] Percent 6.6 % 06/28/2025 11:33 AM EDT [facility] Eos Percent 0.2 % 06/28/2025 11:33 AM EDT [facility] Baso Percent 0.5 % 06/28/2025 11:33 AM EDT [facility] Neut # 2.2 1.6 - 6.1 x10(3)/mcL 06/28/2025 11:33 AM EDT [facility] Comment:Neutrophils equals s egs plus bands IMMGRAN# 0.0 0.0 - 0.1 x10(3)/[facility] 06/28/2025 11:33 AM EDT [facility] Comment:Automated count of m etamyelocytes, myelocytes and promyelocytes. An absolute IG <0.1 is reported as 0.0. Lymph # 1.7 1.2 - 3.9 x10(3)/[facility] 06/28/2025 11:33 AM EDT [facility] [place] # 0.3 0.3 - 0.9 x10(3)/[facility] 06/28/2025 11:33 AM EDT [facility] Eos# 0.0 0.0 - 0.5 x10(3)/[facility] 06/28/2025 11:33 AM EDT [facility] Baso # 0.0 0.0 - 0.1 x10(3)/[facility] 06/28/2025 11:33 AM EDT [facility] Blood VENOUS BLOOD / Unknown Venipuncture / Unknown 06/28/2025 11:26 AM EDT 06/28/2025 11:30 AM EDT us Jacob Horowitz MD HEMATOLOGY ORDERABLES Final Resu lt [facility] [id number] [id number] * (ABNORMAL) GLUCOSE METER POC (06/28/2025 8:20 AM EDT) [facility] Glucose Meter POC 104(H) 70 - 100 mg/dL 06/28/2025 8:21 AM EDT [facility] Sample Type Capillary 06/28/2025 8:21 AM EDT [facility] [facility] Patient Status Non-Critical Patient 06/28/2025 8:21 AM EDT [facility] Blood BLOOD SPECIMEN / Unknown 06/28/2025 8:20 AM EDT 06/28/2025 8:21 AM EDT Duong Vitale MD POINT OF CARE TEST ORDERABLES Final Result Performing Organization Address City/[facility]/ZIP Co de Phone Number [facility] [address] [place] [address] * ECG AND WAVEFORMS - TELEMETRY (06/28/2025 7:00 AM EDT) ECG INTERPRET Atrial Fib [facility] 06/28/2025 7:00 AM EDT Narrative [facility] - 06/28/2025 7:40 AM EDT ECB - ROUTINE QRS 0.11 See Clinical Report link for waveform capture us Unknown Provider POINT OF CARE CARDIOLOGY Final Result Performing Organization Address [facility] Co de Phone Number [facility] [address] [place] [address] * (ABNORMAL) GLUCOSE METER POC (06/28/2025 12:13 AM EDT) Glucose Meter POC 133(H) 70 - 100 mg/dL 06/28/2025 12:14 AM EDT [facility] Sample Type Capillary 06/28/2025 12:14 AM EDT [facility] Patient Status Non-Critical Patient 06/28/2025 12:14 AM EDT [facility] Blood BLOOD SPECIMEN / Unknown 06/28/2025 12:13 AM EDT 06/28/2025 12:14 AM EDT Duong Vitale MD POINT OF CARE TEST ORDERABLES Final Result Performing Organization Address City/[facility]/ZIP Co de Phone Number [facility] [address] [place] [address] * (ABNORMAL) GLUCOSE METER POC (06/27/2025 8:12 PM EDT) Glucose Meter POC 141(H) 70 - 100 mg/dL 06/27/2025 8:14 PM EDT [facility] Sample Type Capillary 06/27/2025 8:14 PM EDT [facility] Patient Status Non-Critical Patient 06/27/2025 8:14 PM EDT [facility] Blood BLOOD SPECIMEN / Unknown 06/27/2025 8:12 PM EDT 06/27/2025 8:14 PM EDT Duong Vitale MD POINT OF CARE TEST ORDERABLES Final Result Performing Organization Address City/[facility]/ZIP Co de Phone Number [facility] [address] [place] [address] * ECG AND WAVEFORMS - TELEMETRY (06/27/2025 7:22 PM EDT) ECG INTERPRET Atrial Fib [facility] 06/27/2025 7:22 PM EDT Narrative [facility] - 06/27/2025 7:25 PM EDT ROUTINE/ PVCS (JM) QRS 0.08 See Clinical Report link for waveform capture us Unknown Provider POINT OF CARE CARDIOLOGY Final Result Performing Organization Address [facility] Co de Phone Number [facility] [address] [place] [address] * (ABNORMAL) GLUCOSE METER POC (06/27/2025 5:34 PM EDT) Glucose Meter POC 184(H) 70 - 100 mg/dL 06/27/2025 5:35 PM EDT [facility] Sample Type Capillary 06/27/2025 5:35 PM EDT [facility] Patient Status Non-Critical Patient 06/27/2025 5:35 PM EDT [facility] Blood BLOOD SPECIMEN / Unknown 06/27/2025 5:34 PM EDT 06/27/2025 5:35 PM EDT Duong Vitale MD POINT OF CARE TEST ORDERABLES Final Result Performing Organization Address City/[facility]/ZIP Co de Phone Number [facility] [address] [place] [address] * (ABNORMAL) GLUCOSE METER POC (06/27/2025 11:48 AM EDT) Glucose Meter POC 119(H) 70 - 100 mg/dL 06/27/2025 11:49 AM EDT [facility] Sample Type Capillary 06/27/2025 11:49 AM EDT [facility] Patient Status Non-Critical Patient 06/27/2025 11:49 AM EDT [facility] Blood BLOOD SPECIMEN / Unknown 06/27/2025 11:48 AM EDT 06/27/2025 11:49 AM EDT Duong Vitale MD POINT OF CARE TEST ORDERABLES Final Result Performing Organization Address [facility] de Phone Number [facility] [address] [place] [address] * (ABNORMAL) GLUCOSE METER POC (06/27/2025 9:02 AM EDT) Glucose Meter POC 121(H) 70 - 100 mg/dL 06/27/2025 9:04 AM EDT [facility] Sample Type Capillary 06/27/2025 9:04 AM EDT [facility] Patient Status Non-Critical Patient 06/27/2025 9:04 AM EDT [facility] Blood BLOOD SPECIMEN / Unknown 06/27/2025 9:02 AM EDT 06/27/2025 9:04 AM EDT Duong Vitale MD POINT OF CARE TEST ORDERABLES Final Result Performing Organization Address [facility] de Phone Number [facility] [address] [place] [address] * EXTRA LAVENDER (06/27/2025 8:28 AM EDT) Blood VENOUS BLOOD / Unknown Venipuncture / Unknown 06/27/2025 8:28 AM EDT 06/27/2025 8:36 AM EDT us Duong Vitale MD HEMATOLOGY ORDERABLES Final R esult Performing Organization Address City/[facility] Co de Phone Number [facility] [address] [facility] [place] [address] * (ABNORMAL) BASIC METABOLIC PANEL (06/27/2025 8:28 AM EDT) Sodium 138 136 - 145 mmol/L 06/27/2025 8:56 AM EDT [facility] Potassium 4.1 3.5 - 5.0 mmol/L 06/27/2025 8:56 AM EDT [facility] Chloride 106 98 - 107 mmol/L 06/27/2025 8:56 AM EDT [facility] Total CO2 21(L) 22 - 29 mmol/L 06/27/2025 8:56 AM EDT [facility] Anion Gap 11 7 - 16 mmol/L 06/27/2025 8:56 AM EDT [facility] Calcium 8.3(L) 8.8 - 10.4 mg/dL 06/27/2025 8:56 AM EDT [facility] Glucose Lvl 112(H) 70 - 99 mg/dL 06/27/2025 8:56 AM EDT [facility] BUN 13 8 - 23 mg/dL 06/27/2025 8:56 AM EDT [facility] Creatinine 0.86 0.51 - 1.30 mg/dL 06/27/2025 8:56 AM EDT [facility] eGFR (CKD-EPIcr 2020) 66 >=60 mL/min/1.7 3 m2 06/27/2025 8:56 AM EDT [facility] Comment:Estimated GFR was ca lculated using the CKD-EPIcr (2020) equation refit without race. The equation is recommended by the [employer] - [employer] Neph[employer] Task Force. Blood VENOUS BLOOD / Unknown Venipuncture / Unknown 06/27/2025 8:28 AM EDT 06/27/2025 8:35 AM EDT Lianet Harris RESEARCH ATTORNEY CHEMISTRY ORDERABLES Fi nal Result Performing Organization Address City/[facility]/ZIP Co de Phone Number [facility] [address] [place] [address] * ECG AND WAVEFORMS - TELEMETRY (06/27/2025 7:00 AM EDT) ECG INTERPRET Atrial Fib [facility] 06/27/2025 7:00 AM EDT Narrative [facility] - 06/27/2025 7:38 AM EDT ECB - ROUTINE QRS 0.12 See Clinical Report link for waveform capture us Unknown Provider POINT OF CARE CARDIOLOGY Final Result [facility] [address] [place] [address] * (ABNORMAL) GLUCOSE METER POC (06/27/2025 5:39 AM EDT) Glucose Meter POC 105(H) 70 - 100 mg/dL 06/27/2025 5:41 AM EDT [facility] Sample Type Capillary 06/27/2025 5:41 AM EDT [facility] Patient Status Non-Critical Patient 06/27/2025 5:41 AM EDT [facility] Blood BLOOD SPECIMEN / Unknown 06/27/2025 5:39 AM EDT 06/27/2025 5:41 AM EDT us Duong Vitale MD POINT OF CARE TEST ORDERABLES Final Result [facility] [address] [place] [address] * (ABNORMAL) GLUCOSE METER POC (06/27/2025 12:32 AM EDT) Glucose Meter POC 118(H) 70 - 100 mg/dL 06/27/2025 12:33 AM EDT [facility] Sample Type Capillary 06/27/2025 12:33 AM EDT [facility] Patient Status Non-Critical Patient 06/27/2025 12:33 AM EDT [facility] Blood BLOOD SPECIMEN / Unknown 06/27/2025 12:32 AM EDT 06/27/2025 12:33 AM EDT Duong Vitale MD POINT OF CARE TEST ORDERABLES Final Result Performing Organization Address City/[facility] Co de Phone Number [facility] [address] [place] [address] * (ABNORMAL) GLUCOSE METER POC (06/26/2025 8:15 PM EDT) Glucose Meter POC 137(H) 70 - 100 mg/dL 06/26/2025 8:17 PM EDT [facility] Sample Type Capillary 06/26/2025 8:17 PM EDT [facility] Patient Status Non-Critical Patient 06/26/2025 8:17 PM EDT [facility] Blood BLOOD SPECIMEN / Unknown 06/26/2025 8:15 PM EDT 06/26/2025 8:17 PM EDT Duong Vitale MD POINT OF CARE TEST ORDERABLES Final Result Performing Organization Address City/[facility] Co de Phone Number [facility] [address] [place] [address] * ECG AND WAVEFORMS - TELEMETRY (06/26/2025 7:52 PM EDT) ECG INTERPRET Atrial Fib [facility] 06/26/2025 7:5 2 PM EDT Narrative [facility] - 06/26/2025 7:54 PM EDT TW/ROUTINE QRS 0.10 See Clinical Report link for waveform capture us Unknown Provider POINT OF CARE CARDIOLOGY Final Result Performing Organization Address City/[facility]/ZIP Co de Phone Number [facility] [address] [place] [address] * (ABNORMAL) GLUCOSE METER POC (06/26/2025 5:59 PM EDT) Glucose Meter POC 161(H) 70 - 100 mg/dL 06/26/2025 6:01 PM EDT [facility] Sample Type Capillary 06/26/2025 6:01 PM EDT [facility] Patient Status Non-Critical Patient 06/26/2025 6:01 PM EDT [facility] Blood BLOOD SPECIMEN / Unknown 06/26/2025 5:59 PM EDT 06/26/2025 6:01 PM EDT us Duong Vitale MD POINT OF CARE TEST ORDERABLES Final Result [facility] [address] [place], [place] [id number] * ECG AND WAVEFORMS - TELEMETRY (06/26/2025 5:10 PM EDT) [facility] ECG INTERPRET Atrial Fib [facility] 06/26/2025 5:10 PM EDT Narrative [facility] - 06/26/2025 5:10 PM EDT See Clinical Report link for waveform capture us Unknown Provider POINT OF CARE CARDIOLOGY Final Result Performing Organization Address City/[facility]/ZIP Co de Phone Number [facility] [address] [place] [phone] * (ABNORMAL) CBC WITH DIFF (06/26/2025 2:27 PM EDT) [facility] WBC 4.1 3.7 - 10.3 x10(3)/mcL 06/26/2025 2:36 PM EDT [facility] RBC 2.51(L) 3.90 - 5.20 x10(6)/mcL 06/26/2025 2:36 PM EDT [facility] Hgb 9.3(L) 11.2 - 15.7 g/dL 06/26/2025 2:36 PM EDT [facility] Hct 27.7(L) 34.0 - 45.0 % 06/26/2025 2:36 PM EDT [facility] MCV 110.4(H) 80.0 - 100.0 fL 06/26/2025 2:36 PM EDT [facility] MCH 37.1(H) 26.0 - 34.0 pg 06/26/2025 2:36 PM EDT [facility] MCHC 33.6 30.7 - 35.5 g/dL 06/26/2025 2:36 PM EDT [facility] RDW 19.5(H) <=14.9 % 06/26/2025 2:36 PM EDT [facility] Platelet 94(L) 155 - 369 x10(3)/[facility] 06/26/2025 2:36 PM EDT [facility] MPV 12.1 8.8 - 12.5 fL 06/26/2025 2:36 PM EDT [facility] Neut Percent 58.8 % 06/26/2025 2:36 PM EDT [facility] Comment:Neutrophils equals s egs plus bands Imm Gran% 0.5 % 06/26/2025 2:36 PM EDT [facility] Comment:Automated count of m etamyelocytes, myelocytes and promyelocytes. Lymph Percent 32.9 % 06/26/2025 2:36 PM EDT [facility] [place] Percent 7.3 % 06/26/2025 2:36 PM EDT [facility] Eos Percent 0.0 % 06/26/2025 2:36 PM EDT [facility] Baso Percent 0.5 % 06/26/2025 2:36 PM EDT [facility] Neut # 2.4 1.6 - 6.1 x10(3)/[facility] 06/26/2025 2:36 PM EDT [facility] Comment:Neutrophils equals s egs plus bands IMMGRAN# 0.0 0.0 - 0.1 x10(3)/[facility] 06/26/2025 2:36 PM EDT [facility] Comment:Automated count of m etamyelocytes, myelocytes and promyelocytes. An absolute IG <0.1 is reported as 0.0. Lymph # 1.4 1.2 - 3.9 x10(3)/[facility] 06/26/2025 2:36 PM EDT [facility] [place] # 0.3 0.3 - 0.9 x10(3)/[facility] 06/26/2025 2:36 PM EDT [facility] Eos# 0.0 0.0 - 0.5 x10(3)/mcL 06/26/2025 2:36 PM EDT [facility] Baso # 0.0 0.0 - 0.1 x10(3)/mcL 06/26/2025 2:36 PM EDT [facility] Blood VENOUS BLOOD / Unknown Venipuncture / Unknown 06/26/2025 2:27 PM EDT 06/26/2025 2:34 PM EDT us Jacob Horowitz MD HEMATOLOGY ORDERABLES Final Resu lt Performing Organization Address [facility] Co de Phone Number [facility] [address] [place] [address] * POTASSIUM LEVEL (06/26/2025 2:27 PM EDT) Potassium 4.5 3.5 - 5.0 mmol/L 06/26/2025 2:46 PM EDT [facility] Blood VENOUS BLOOD / Unknown Venipuncture / Unknown 06/26/2025 2:27 PM EDT 06/26/2025 2:34 PM EDT us Jacob Horowitz MD CHEMISTRY ORDERABLES Final Resul t Performing Organization Address [facility] de Phone Number [facility] [address] [place] [address] * US RENAL AND BLADDER (06/26/2025 12:44 [...] evaluation of the kidneys and bladder with retail representative images and waffle machine operator notes sent to PACS for radiologist review. [...] sonographic evaluation of the kidneys andbladder with retail representative images and waffle machine operator notes sent to PACS forradiologist review. FINDINGS: [...] the ordering clinician. us Antoine Ferraro PA-C [facility] US ORDERABLES F inal Result * (ABNORMAL) GLUCOSE METER POC (06/26/2025 12:39 PM EDT) [facility] Glucose Meter POC 119(H) 70 - 100 mg/dL 06/26/2025 12:40 PM EDT [facility] Sample Type Capillary 06/26/2025 12:40 PM EDT [facility] Patient Status Non-Critical Patient 06/26/2025 12:40 PM EDT [facility] Blood BLOOD SPECIMEN / Unknown 06/26/2025 12:39 PM EDT 06/26/2025 12:40 PM EDT us Duong Vitale MD POINT OF CARE TEST ORDERABLES Final Result [facility] [address] [place] [address] * ECG AND WAVEFORMS - TELEMETRY (06/26/2025 7:51 AM EDT) Pathologist [facility] ECG INTERPRET Atrial Fib [facility] 06/26/2025 7:51 AM EDT Narrative [facility] - 06/26/2025 7:51 AM EDT See Clinical Report link for waveform capture us Unknown Provider POINT OF CARE CARDIOLOGY Final Result Performing Organization Address City/[facility]/ZIP Co de Phone Number [facility] [address] [place] [phone] * (ABNORMAL) BASIC METABOLIC PANEL (06/26/2025 6:31 AM EDT) Pathologist [facility] Sodium 138 136 - 145 mmol/L 06/26/2025 7:09 AM EDT [facility] Potassium 3.9 3.5 - 5.0 mmol/L 06/26/2025 7:09 AM EDT [facility] Chloride 106 98 - 107 mmol/L 06/26/2025 7:09 AM EDT [facility] Total CO2 22 22 - 29 mmol/L 06/26/2025 7:09 AM EDT [facility] Anion Gap 10 7 - 16 mmol/L 06/26/2025 7:09 AM EDT [facility] Calcium 8.3(L) 8.8 - 10.4 mg/dL 06/26/2025 7:09 AM EDT [facility] Glucose Lvl 95 70 - 99 mg/dL 06/26/2025 7:09 AM EDT [facility] BUN 13 8 - 23 mg/dL 06/26/2025 7:09 AM EDT [facility] Creatinine 0.87 0.51 - 1.30 mg/dL 06/26/2025 7:09 AM EDT [facility] eGFR (CKD-EPIcr 2020) 65 >=60 mL/min/1.7 3 m2 06/26/2025 7:09 AM EDT [facility] Comment:Estimated GFR was ca lculated using the CKD-EPIcr (2020) equation refit without race. The equation is recommended by the National Kid[employer] - [place] [employer] Neph[employer] Task Force. Blood VENOUS BLOOD / Unknown Venipuncture / Unknown 06/26/2025 6:31 AM EDT 06/26/2025 6:37 AM EDT us Spencer Luna APRN CHEMISTRY ORDERABLES Fin al Result Performing Organization Address [facility] de Phone Number [facility] [address] [place] [address] * (ABNORMAL) NT PROBNP (06/26/2025 6:31 AM EDT) NT Pro-BNP 7,743(H) <=624 pg/mL 06/26/2025 7:09 AM EDT [facility] Blood VENOUS BLOOD / Unknown Venipuncture / Unknown 06/26/2025 6:31 AM EDT 06/26/2025 6:37 AM EDT Narrative [facility] - 06/26/2025 7:09 AM EDT An NT pro-BNP level less than 300 pg/mL in any patient, regardless of age, effectively rules out acute CHF with a 99% negative predictive value. Ingestion of angie doses of biotin (>5 mg/day) taken within 8 hours of drawing blood sample can interfere with this immunoassay test. us Duong Viatle MD CHEMISTRY ORDERABLES Final Re sult Performing Organization Address [facility] Co de Phone Number [facility] [address] [place] [address] * (ABNORMAL) CBC (06/26/2025 6:31 AM EDT) [facility] WBC 4.6 3.7 - 10.3 x10(3)/mcL 06/26/2025 6:42 AM EDT [facility] RBC 2.48(L) 3.90 - 5.20 x10(6)/mcL 06/26/2025 6:42 AM EDT [facility] Hgb 9.0(L) 11.2 - 15.7 g/dL 06/26/2025 6:42 AM EDT [facility] Hct 27.4(L) 34.0 - 45.0 % 06/26/2025 6:42 AM EDT [facility] MCV 110.5(H) 80.0 - 100.0 fL 06/26/2025 6:42 AM EDT [facility] MCH 36.3(H) 26.0 - 34.0 pg 06/26/2025 6:42 AM EDT [facility] MCHC 32.8 30.7 - 35.5 g/dL 06/26/2025 6:42 AM EDT [facility] RDW 19.3(H) <=14.9 % 06/26/2025 6:42 AM EDT [facility] Platelet 87(L) 155 - 369 x10(3)/mcL 06/26/2025 6:42 AM EDT [facility] MPV 12.9(H) 8.8 - 12.5 fL 06/26/2025 6:42 AM EDT [facility] Blood VENOUS BLOOD / Unknown Venipuncture / Unknown 06/26/2025 6:31 AM EDT 06/26/2025 6:37 AM EDT us Duong Vitale MD HEMATOLOGY ORDERABLES Final R esult [facility] [address] [place] [address] * GLUCOSE METER POC (06/26/2025 6:30 AM EDT) [facility] Glucose Meter POC 92 70 - 100 mg/dL 06/26/2025 6:32 AM EDT [facility] Sample Type Capillary 06/26/2025 6:32 AM EDT [facility] Patient Status Non-Critical Patient 06/26/2025 6:32 AM EDT [facility] Blood BLOOD SPECIMEN / Unknown 06/26/2025 6:30 AM EDT 06/26/2025 6:32 AM EDT us Duong Vitale MD POINT OF CARE TEST ORDERABLES Final Result [facility] [address] [place] [address] * GLUCOSE METER POC (06/26/2025 12:14 AM EDT) Glucose Meter POC 91 70 - 100 mg/dL 06/26/2025 12:15 AM EDT [facility] Sample Type Capillary 06/26/2025 12:15 AM EDT [facility] Patient Status Non-Critical Patient 06/26/2025 12:15 AM EDT [facility] Blood BLOOD SPECIMEN / Unknown 06/26/2025 12:14 AM EDT 06/26/2025 12:15 AM EDT us Duong Vitale MD POINT OF CARE TEST ORDERABLES Final Result Performing Organization Address City/[facility]/ZIP Co de Phone Number [facility] [address] [place] [address] * ECG AND WAVEFORMS - TELEMETRY (06/25/2025 7:20 PM EDT) ECG INTERPRET Atrial Fib [facility] 06/25/2025 7:20 PM EDT Narrative [facility] - 06/25/2025 7:20 PM EDT See Clinical Report link for waveform capture us Unknown Provider POINT OF CARE CARDIOLOGY Final Result [facility] [address] [place] [address] * GLUCOSE METER POC (06/25/2025 6:14 PM EDT) Glucose Meter POC 80 70 - 100 mg/dL 06/25/2025 6:16 PM EDT [facility] Sample Type Capillary 06/25/2025 6:16 PM EDT [facility] Patient Status Non-Critical Patient 06/25/2025 6:16 PM EDT [facility] Blood BLOOD SPECIMEN / Unknown 06/25/2025 6:14 PM EDT 06/25/2025 6:16 PM EDT us Duong Vitale MD POINT OF CARE TEST ORDERABLES Final Result Performing Organization Address City/[facility] Co de Phone Number [facility] [address] [place] [address] * POTASSIUM LEVEL (06/25/2025 4:44 PM EDT) [facility] Potassium 4.2 3.5 - 5.0 mmol/L 06/25/2025 5:03 PM EDT [facility] Blood VENOUS BLOOD / Unknown Venipuncture / Unknown 06/25/2025 4:44 PM EDT 06/25/2025 4:51 PM EDT us Gabby Heredia APRN CHEMISTRY ORDERABLES Final Resul t [facility] [address] [place] [address] * EEG ED/ICU REMOTE MONITORING (06/25/2025 3:28 [...] without any parasagittal coverage (rapid EEG - GROUND[employer]OTHibXsilon device). Computer selected EEG is reviewed as well as background features and all clinically significant events. TECHNICAL SUMMARY: This is a 10 channel referential and bipolar EEG recorded in a digital format on the GROUNDBOOTHibXsilon device. This device is designed to detect [...] parasagittal coverage. Reading MD: Clyde Barr MD us Donnie Esqueda MD IMG EEG ORDERABLES Final Resu lt * (ABNORMAL) GLUCOSE METER POC (06/25/2025 12:30 PM EDT) [facility] Glucose Meter POC 102(H) 70 - 100 mg/dL 06/25/2025 12:32 PM EDT [facility] Sample Type Capillary 06/25/2025 12:32 PM EDT [facility] Patient Status Non-Critical Patient 06/25/2025 12:32 PM EDT [facility] Blood BLOOD SPECIMEN / Unknown 06/25/2025 12:30 PM EDT 06/25/2025 12:32 PM EDT Duong Vitale MD POINT OF CARE TEST ORDERABLES Final Result [facility] [address] [place] [address] * (ABNORMAL) BLOOD GAS, VENOUS (06/25/2025 10:58 AM EDT) pH Venous 7.42 7.32 - 7.42 pH 06/25/2025 11:14 AM EDT [facility] pCO2 Venous 37(L) 41 - 51 mmHg 06/25/2025 11:14 AM EDT [facility] pO2 Venous 50(H) 25 - 40 mmHg 06/25/2025 11:14 AM EDT [facility] Comment:Interpret with cauti on. Not recommended to evaluate patient's oxygenation status. Base Excess Martín 0.0 mmol/L 11:14 AM EDT [facility] Hco3 Venous 24.3 24.0 - 28.0 mmol/L 06/25/2025 11:14 AM EDT [facility] CO2 Total Martín 23(L) 25 - 29 mmol/L 06/25/2025 11:14 AM EDT [facility] O2 Sat. Venous 83.5(H) 40.0 - 70.0 % 06/25/2025 11:14 AM EDT [facility] Inspired O2 25 06/25/2025 11:14 AM EDT [facility] Blood VENOUS STRUCTURE / Unknown Line / Unknown 06/25/2025 10:58 AM EDT 06/25/2025 11:06 AM EDT us Gabby Heredia RESEARCH ATTORNEY CHEMISTRY ORDERABLES Final Resul t [facility] [address] [place] [address] * GLUCOSE METER POC (06/25/2025 8:20 AM EDT) Glucose Meter POC 98 70 - 100 mg/dL 06/25/2025 8:23 AM EDT [facility] Sample Type Arterial 06/25/2025 8:23 AM EDT [facility] Patient Status Non-Critical Patient 06/25/2025 8:23 AM EDT [facility] Blood BLOOD SPECIMEN / Unknown 06/25/2025 8:20 AM EDT 06/25/2025 8:23 AM EDT us Duong Vitale MD POINT OF CARE TEST ORDERABLES Final Result [facility] [address] [place] [address] * ECG AND WAVEFORMS - TELEMETRY (06/25/2025 7:40 AM EDT) [facility] ECG INTERPRET Atrial Fib [facility] 06/25/2025 7:40 AM EDT Narrative [facility] - 06/25/2025 7:40 AM EDT See Clinical Report link for waveform capture us Unknown Provider POINT OF CARE CARDIOLOGY Final Result Performing Organization Address [facility] de Phone Number [facility] [address] [place] [address] * (ABNORMAL) BASIC METABOLIC PANEL (06/25/2025 6:31 AM EDT) [facility] Sodium 139 136 - 145 mmol/L 06/25/2025 7:09 AM EDT [facility] Potassium 3.4(L) 3.5 - 5.0 mmol/L 06/25/2025 7:09 AM EDT [facility] Chloride 106 98 - 107 mmol/L 06/25/2025 7:09 AM EDT [facility] Total CO2 21(L) 22 - 29 mmol/L 06/25/2025 7:09 AM EDT [facility] Anion Gap 12 7 - 16 mmol/L 06/25/2025 7:09 AM EDT [facility] Calcium 8.5(L) 8.8 - 10.4 mg/dL 06/25/2025 7:09 AM EDT [facility] Glucose Lvl 95 70 - 99 mg/dL 06/25/2025 7:09 AM EDT [facility] BUN 16 8 - 23 mg/dL 06/25/2025 7:09 AM EDT [facility] Creatinine 1.05 0.51 - 1.30 mg/dL 06/25/2025 7:09 AM EDT [facility] eGFR (CKD-EPIcr 2020) 52(L) >=60 mL/min/1.7 3 m2 06/25/2025 7:09 AM EDT [facility] Comment:Estimated GFR was ca lculated using the CKD-EPIcr (2020) equation refit without race. The equation is recommended by the [employer] Kid[employer] - [place] [employer]ph[employer] Task Force. Blood VENOUS BLOOD / Unknown Venipuncture / Unknown 06/25/2025 6:31 AM EDT 06/25/2025 6:45 AM EDT Spencer Luna APRN CHEMISTRY ORDERABLES Fin al Result Performing Organization Address [facility] de Phone Number [facility] [address] [place] [address] * (ABNORMAL) NT PROBNP (06/25/2025 6:31 AM EDT) NT Pro-BNP 5,011(H) <=624 pg/mL 06/25/2025 7:09 AM EDT [facility] Blood VENOUS BLOOD / Unknown Venipuncture / Unknown 06/25/2025 6:31 AM EDT 06/25/2025 6:45 AM EDT Narrative [facility] - 06/25/2025 7:09 AM EDT An [...] ORDERABLES Final Re sult Performing Organization Address [facility] de Phone Number [facility] [address] [place] [address] * (ABNORMAL) CBC (06/25/2025 6:31 AM EDT) WBC 4.2 3.7 - 10.3 x10(3)/mcL 06/25/2025 6:47 AM EDT [facility] RBC 2.12(L) 3.90 - 5.20 x10(6)/mcL 06/25/2025 6:47 AM EDT [facility] Hgb 7.9(L) 11.2 - 15.7 g/dL 06/25/2025 6:47 AM EDT [facility] Hct 23.5(L) 34.0 - 45.0 % 06/25/2025 6:47 AM EDT [facility] MCV 110.8(H) 80.0 - 100.0 fL 06/25/2025 6:47 AM EDT [facility] MCH 37.3(H) 26.0 - 34.0 pg 06/25/2025 6:47 AM EDT [facility] MCHC 33.6 30.7 - 35.5 g/dL 06/25/2025 6:47 AM EDT [facility] RDW 19.9(H) <=14.9 % 06/25/2025 6:47 AM EDT [facility] Platelet 63(L) 155 - 369 x10(3)/mcL 06/25/2025 6:47 AM EDT [facility] MPV 13.0(H) 8.8 - 12.5 fL 06/25/2025 6:47 AM EDT [facility] Blood VENOUS BLOOD / Unknown Venipuncture / Unknown 06/25/2025 6:31 AM EDT 06/25/2025 6:45 AM EDT us Duong Vitale MD HEMATOLOGY ORDERABLES Final R esult [facility] [address] [place] [address] * GLUCOSE METER POC (06/25/2025 6:24 AM EDT) [facility] Glucose Meter POC 96 70 - 100 mg/dL 06/25/2025 6:25 AM EDT [facility] Sample Type Capillary 06/25/2025 6:25 AM EDT [facility] Patient Status Non-Critical Patient 06/25/2025 6:25 AM EDT [facility] Blood BLOOD SPECIMEN / Unknown 06/25/2025 6:24 AM EDT 06/25/2025 6:25 AM EDT us Duong Vitale MD POINT OF CARE TEST ORDERABLES Final Result Performing Organization Address City/[facility] de Phone Number [facility] [address] [place] [address] * GLUCOSE METER POC (06/25/2025 1:14 AM EDT) Glucose Meter POC 76 70 - 100 mg/dL 06/25/2025 1:16 AM EDT [facility] Sample Type Capillary 06/25/2025 1:16 AM EDT [facility] Patient Status Non-Critical Patient 06/25/2025 1:16 AM EDT [facility] Blood BLOOD SPECIMEN / Unknown 06/25/2025 1:14 AM EDT 06/25/2025 1:16 AM EDT us Duong Vitale MD POINT OF CARE TEST ORDERABLES Final Result Performing Organization Address [facility] de Phone Number [facility] [address] [place] [address] * GLUCOSE METER POC (06/24/2025 8:07 PM EDT) Glucose Meter POC 84 70 - 100 mg/dL 06/24/2025 8:09 PM EDT [facility] Sample Type Capillary 06/24/2025 8:09 PM EDT [facility] Patient Status Non-Critical Patient 06/24/2025 8:09 PM EDT [facility] Blood BLOOD SPECIMEN / Unknown 06/24/2025 8:07 PM EDT 06/24/2025 8:09 PM EDT us Duong Vitale MD POINT OF CARE TEST ORDERABLES Final Result Performing Organization Address [facility] Co de Phone Number [facility] [address] [place] [address] * ECG AND WAVEFORMS - TELEMETRY (06/24/2025 7:53 PM EDT) ECG INTERPRET Atrial Fib [facility] 06/24/2025 7:53 PM EDT Narrative [facility] - 06/24/2025 7:53 PM EDT See Clinical Report link for waveform capture us Unknown Provider POINT OF CARE CARDIOLOGY Final Result Performing Organization Address [facility] Co de Phone Number [facility] [address] [place] [address] * (ABNORMAL) GLUCOSE METER POC (06/24/2025 5:10 PM EDT) Glucose Meter POC 129(H) 70 - 100 mg/dL 06/24/2025 5:11 PM EDT [facility] Sample Type Capillary 06/24/2025 5:11 PM EDT [facility] Patient Status Non-Critical Patient 06/24/2025 5:11 PM EDT [facility] Blood BLOOD SPECIMEN / Unknown 06/24/2025 5:10 PM EDT 06/24/2025 5:11 PM EDT us Duong Vitale MD POINT OF CARE TEST ORDERABLES Final Result Performing Organization Address [facility] Co de Phone Number [facility] [address] [place] [address] * (ABNORMAL) GLUCOSE METER POC (06/24/2025 4:19 PM EDT) Glucose Meter POC 65(L) 70 - 100 mg/dL 06/24/2025 4:22 PM EDT [facility] Sample Type Capillary 06/24/2025 4:22 PM EDT [facility] Patient Status Non-Critical Patient 06/24/2025 4:22 PM EDT [facility] Blood BLOOD SPECIMEN / Unknown 06/24/2025 4:19 PM EDT 06/24/2025 4:22 PM EDT Duong Vitale MD POINT OF CARE TEST ORDERABLES Final Result [facility] [address] [place] [address] * CT HEAD WO CONTRAST (06/24/2025 2:37 [...] tricuspid valve regurgitation. Narrative Procedure Note Sukh Garner, - 06/24/2025 IMPRESSION Conclusions * Left ventricular [...] - 4.5 mg/dL 06/24/2025 12:57 PM EDT [facility] Blood VENOUS BLOOD / Unknown Venipuncture / Unknown 06/24/2025 12:25 PM EDT 06/24/2025 12:34 PM EDT Spencer Luna RESEARCH ATTORNEY CHEMISTRY ORDERABLES Fin al Result Performing Organization Address [facility] de Phone Number [facility] [address] [place] [address] * (ABNORMAL) MAGNESIUM LEVEL (06/24/2025 12:25 PM EDT) Magnesium 3.0(H) 1.6 - 2.4 mg/dL 06/24/2025 12:57 PM EDT [facility] Blood VENOUS BLOOD / Unknown Venipuncture / Unknown 06/24/2025 12:25 PM EDT 06/24/2025 12:34 PM EDT Spencer Luna RESEARCH ATTORNEY CHEMISTRY ORDERABLES Fin al Result Performing Organization Address [facility] de Phone Number [facility] [address] [place] [address] * (ABNORMAL) GLUCOSE METER POC (06/24/2025 12:16 PM EDT) Glucose Meter POC 112(H) 70 - 100 mg/dL 06/24/2025 12:18 PM EDT [facility] Sample Type Capillary 06/24/2025 12:18 PM EDT [facility] Patient Status Non-Critical Patient 06/24/2025 12:18 PM EDT [facility] Blood BLOOD SPECIMEN / Unknown 06/24/2025 12:16 PM EDT 06/24/2025 12:18 PM EDT Duong Vitale MD POINT OF CARE TEST ORDERABLES Final Result Performing Organization Address [facility] de Phone Number [facility] [address] [place] [address] * SCANNED EKG (06/24/2025 10:55 AM EDT) Anatomical Region Laterality Modality Other 06/24/2025 10:5 5 AM EDT us Unknown Provider IMG ECG ORDERABLES Final Result * (ABNORMAL) GLUCOSE METER POC (06/24/2025 8:15 AM EDT) Glucose Meter POC 236(H) 70 - 100 mg/dL 06/24/2025 8:17 AM EDT [facility] Sample Type Capillary 06/24/2025 8:17 AM EDT [facility] Patient Status Non-Critical Patient 06/24/2025 8:17 AM EDT [facility] Blood BLOOD SPECIMEN / Unknown 06/24/2025 8:15 AM EDT 06/24/2025 8:17 AM EDT us Duong Vitale MD POINT OF CARE TEST ORDERABLES Final Result Performing Organization Address City/State/[facility] Co de Phone Number [facility] [address] [place] [address] * (ABNORMAL) BLOOD GAS ARTERIAL (06/24/2025 5:26 AM EDT) pH 7.45 7.35 - 7.45 pH 06/24/2025 5:39 AM EDT [facility] pCO2 31(L) 35 - 45 mmHg 06/24/2025 5:39 AM EDT [facility] pO2 86 80 - 100 mmHg 06/24/2025 5:39 AM EDT [facility] HCO3 21.8(L) 22.0 - 26.0 mmol/L 06/24/2025 5:39 AM EDT [facility] TCO2 21(L) 22 - 29 mmol/L 06/24/2025 5:39 AM EDT [facility] Base Excess -1.8 -2.0 - 3.0 mmol/L 06/24/2025 5:39 AM EDT [facility] O2 Sat 97.7 95.0 - 98.0 % 06/24/2025 5:39 AM EDT [facility] Inspired O2 50 06/24/2025 5:39 AM EDT [facility] P/F Ratio 172(L) 300 - 500 mmHg 06/24/2025 5:39 AM EDT [facility] Comment: P/F ratio alone cannot diagnose ARDS. However, the following scale may be used to help classify Adult Respiratory Distress Syndrome (ARDS) severity: 200-300: Mild ARDS 100-199: Moderate ARDS <100: Severe ARDS Blood ARTERIAL BLOOD / Unknown Arterial / Unknown 06/24/2025 5:26 AM EDT 06/24/2025 5:32 AM EDT John Rich MD CHEMISTRY ORDERABLES Final Resu lt Performing Organization Address City/[facility] Co de Phone Number [facility] [address] [place] [address] * T4, FREE (THYROXINE) (06/24/2025 5:10 AM EDT) Free T4 0.98 0.80 - 1.80 ng/dL 06/24/2025 3:36 PM EDT [employer] Blood VENOUS BLOOD / Unknown Venipuncture / Unknown 06/24/2025 5:10 AM EDT 06/24/2025 5:32 AM EDT Narrative [facility] [employer] - 06/24/2025 3:36 PM EDT Ingestion of angie doses of biotin (>5 mg/day) taken within 8 hours of drawing blood sample can interfere with this immunoassay test. Lianet Harris APRN CHEMISTRY ORDERABLES Fi nal Result Performing Organization Address [facility] Co de Phone Number [employer] [address] [facility] , [address] [place] [id number] * (ABNORMAL) TSH REFLEX TO FT4 (06/24/2025 5:10 AM EDT) TSH Reflex 10.400(H) 0.270 - 4.200 mcIU/mL 06/24/2025 2:51 PM EDT [facility] [employer] Blood VENOUS BLOOD / Unknown Venipuncture / Unknown 06/24/2025 5:10 AM EDT 06/24/2025 5:32 AM EDT Narrative [facility] [employer] [facility] - 06/24/2025 2:51 PM EDT Ingestion of angie doses of biotin (>5 mg/day) taken within 8 hours of drawing blood sample can interfere with this immunoassay test. Lianet Harris APRN CHEMISTRY ORDERABLES Fi nal Result Performing Organization Address [facility] Co de Phone Number [facility] [employer] [address] [place] [address] * TRIGLYCERIDES (06/24/2025 5:10 AM EDT) Triglyceride 107 <150 mg/dL 06/24/2025 8:05 AM EDT [facility] [facility] Comment: < 150 Normal 150 - 199 Borderline High 200 - 499 High >= 500 Very High Blood VENOUS BLOOD / Unknown Venipuncture / Unknown 06/24/2025 5:10 AM EDT 06/24/2025 5:32 AM EDT Donnie Esqueda MD CHEMISTRY ORDERABLES Final Re sult Performing Organization Address [facility] Co de Phone Number [facility] [employer] [address] , [address] [place] [phone] * (ABNORMAL) NT PROBNP (06/24/2025 5:10 AM EDT) NT Pro-BNP 7,992(H) <=624 pg/mL 06/24/2025 5:53 AM EDT [facility] Blood VENOUS BLOOD / Unknown Venipuncture / Unknown 06/24/2025 5:10 AM EDT 06/24/2025 5:32 AM EDT Narrative [facility] - 06/24/2025 5:53 AM EDT An NT pro-BNP level less than 300 pg/mL in any patient, regardless of age, effectively rules out acute CHF with a 99% negative predictive value. Ingestion of angie doses of biotin (>5 mg/day) taken within 8 hours of drawing blood sample can interfere with this immunoassay test. us Duong Vitale MD CHEMISTRY ORDERABLES Final Re sult [facility] [address] [place] [address] * (ABNORMAL) COMPREHENSIVE METABOLIC PANEL (06/24/2025 5:10 AM EDT) Sodium 136 136 - 145 mmol/L 06/24/2025 5:53 AM EDT [facility] Potassium 4.1 3.5 - 5.0 mmol/L 06/24/2025 5:53 AM EDT [facility] Chloride 103 98 - 107 mmol/L 06/24/2025 5:53 AM EDT [facility] Total CO2 21(L) 22 - 29 mmol/L 06/24/2025 5:53 AM EDT [facility] Anion Gap 12 7 - 16 mmol/L 06/24/2025 5:53 AM EDT [facility] Calcium 8.5(L) 8.8 - 10.4 mg/dL 06/24/2025 5:53 AM EDT [facility] Glucose Lvl 229(H) 70 - 99 mg/dL 06/24/2025 5:53 AM EDT [facility] BUN 16 8 - 23 mg/dL 06/24/2025 5:53 AM EDT [facility] Creatinine 1.17 0.51 - 1.30 mg/dL 06/24/2025 5:53 AM EDT [facility] Albumin 3.6 3.2 - 4.6 gm/dL 06/24/2025 5:53 AM EDT [facility] Total Protein 6.5 6.4 - 8.3 gm/dL 06/24/2025 5:53 AM EDT [facility] Bili Total 0.6 0.2 - 1.3 mg/dL 06/24/2025 5:53 AM EDT [facility] ALT 17 <=41 U/L 06/24/2025 5:53 AM EDT [facility] AST 31 <=40 U/L 06/24/2025 5:53 AM EDT [facility] Alk Phos 149(H) 36 - 123 U/L 06/24/2025 5:53 AM EDT [facility] eGFR (CKD-EPIcr 2020) 46(L) >=60 mL/min/1.7 3 m2 06/24/2025 5:53 AM EDT [facility] Comment:Estimated GFR was ca lculated using the CKD-EPIcr (2020) equation refit without race. The equation is recommended by the National Kidney [employer] - [place] [employer] Neph[employer] Task Force. Blood VENOUS BLOOD / Unknown Venipuncture / Unknown 06/24/2025 5:10 AM EDT 06/24/2025 5:32 AM EDT us Duong Vitale MD CHEMISTRY ORDERABLES Final Re sult [facility] [address] [place] [id number] * (ABNORMAL) CBC (06/24/2025 5:10 AM EDT) WBC 4.5 3.7 - 10.3 x10(3)/mcL 06/24/2025 5:34 AM EDT [facility] RBC 2.23(L) 3.90 - 5.20 x10(6)/mcL 06/24/2025 5:34 AM EDT [facility] Hgb 8.3(L) 11.2 - 15.7 g/dL 06/24/2025 5:34 AM EDT [facility] Hct 25.0(L) 34.0 - 45.0 % 06/24/2025 5:34 AM EDT [facility] MCV 112.1(H) 80.0 - 100.0 fL 06/24/2025 5:34 AM EDT [facility] MCH 37.2(H) 26.0 - 34.0 pg 06/24/2025 5:34 AM EDT [facility] MCHC 33.2 30.7 - 35.5 g/dL 06/24/2025 5:34 AM EDT [facility] RDW 20.0(H) <=14.9 % 06/24/2025 5:34 AM EDT [facility] Platelet 83(L) 155 - 369 x10(3)/mcL 06/24/2025 5:34 AM EDT [facility] MPV 12.8(H) 8.8 - 12.5 fL 06/24/2025 5:34 AM EDT [facility] Blood VENOUS BLOOD / Unknown Venipuncture / Unknown 06/24/2025 5:10 AM EDT 06/24/2025 5:32 AM EDT Duong Vitale MD HEMATOLOGY ORDERABLES Final R esult Performing Organization Address City/[facility]/ZIP Co de Phone Number [facility] [address] [place] [address] * (ABNORMAL) GLUCOSE METER POC (06/24/2025 5:05 AM EDT) [facility] Glucose Meter POC 208(H) 70 - 100 mg/dL 06/24/2025 5:07 AM EDT [facility] Sample Type Venous 06/24/2025 5:07 AM EDT [facility] Patient Status Critical Patient 06/24/2025 5:07 AM EDT [facility] Blood BLOOD SPECIMEN / Unknown 06/24/2025 5:05 AM EDT 06/24/2025 5:07 AM EDT Duong Vitale MD POINT OF CARE TEST ORDERABLES Final Result Performing Organization Address City/[facility] Co de Phone Number [facility] [address] [place] [address] * XR CHEST AP PORTABLE (06/24/2025 4:17 [...] - 7.45 pH 06/24/2025 2:33 AM EDT [facility] pCO2 38 35 - 45 mmHg 06/24/2025 2:33 AM EDT [facility] pO2 56(L) 80 - 100 mmHg 06/24/2025 2:33 AM EDT [facility] HCO3 22.3 22.0 - 26.0 mmol/L 06/24/2025 2:33 AM EDT [facility] TCO2 21(L) 22 - 29 mmol/L 06/24/2025 2:33 AM EDT [facility] Base Excess -2.5(L) -2.0 - 3.0 mmol/L 06/24/2025 2:33 AM EDT [facility] O2 Sat 86.7(L) 95.0 - 98.0 % 06/24/2025 2:33 AM EDT [facility] Inspired O2 70 06/24/2025 2:33 AM EDT [facility] P/F Ratio 80(L) 300 - 500 mmHg 06/24/2025 2:33 AM EDT [facility] Comment: P/F ratio alone cannot diagnose ARDS. However, the following scale may be used to help classify Adult Respiratory Distress Syndrome (ARDS) severity: 200-300: Mild ARDS 100-199: Moderate ARDS <100: Severe ARDS Blood ARTERIAL BLOOD / Unknown Arterial / Unknown 06/24/2025 2:25 AM EDT 06/24/2025 2:29 AM EDT us Donnie Esqueda MD CHEMISTRY ORDERABLES Final Re sult [facility] [address] [place] [address] * XR CHEST AP PORTABLE (06/24/2025 12:59 [...] the ordering clinician. us Donnie Esqueda MD [facility] ORDERA BLES Final Result * [...] the ordering clinician. us Donnie Esqueda MD [facility] ORDERA BLES Final Result * EK EKG 12 LEAD (06/24/2025 12:05 AM EDT) Anatomical Region Laterality Modality Electrocardiogra phy 06/24/2025 7:30 AM EDT Impressions 06/24/2025 8:[address] [facility] Test Date: 2025-06-24 Pat Name: SKYLER FLOWERY BRANCH Department: DEPID Room: [facility] Gender: Female [employer]: [place]za : 1940 Requested By: DONNIE ESQUEDA Order Number: [id number] Reading MD: Sukh Garner Measurements Intervals [place] Rate: 54 P: 0 CT: 0 QRS: 39 QRSD: 89 T: 0 [...] Ghotra Test Date: 2025-06-24 Pat Name: SKYLER FLOWERY BRANCH Department: [facility] Room: [facility] Gender: Female [employer]: [place]za : 1940 Requested By: DONNIE ESQUEDA Order Number: [id number] Reading MD: Sukh Garner Measurements Intervals [place] Rate: 54 P: 0 CT: 0 QRS: 39 QRSD: 89 T: 0 [...] - 100 mg/dL 06/24/2025 12:06 AM EDT [facility] Sample Type Venous 06/24/2025 12:06 AM EDT [facility] Patient Status Critical Patient 06/24/2025 12:06 AM EDT [facility] Blood BLOOD SPECIMEN / Unknown 06/24/2025 12:04 AM EDT 06/24/2025 12:06 AM EDT us Duong Vitale MD POINT OF CARE TEST ORDERABLES Final Result Performing Organization Address City/[facility]/ZIP Co de Phone Number [facility] [address] [place] [address] * ECG AND WAVEFORMS - TELEMETRY (06/23/2025 11:59 PM EDT) ECG INTERPRET Sinus Bradycardia [facility] 06/23/2025 11:5 9 PM EDT Narrative [facility] - 06/24/2025 12:04 AM EDT qj Pause 3.57 See Clinical Report link for waveform capture us Unknown Provider POINT OF CARE CARDIOLOGY Final Result Performing Organization Address [facility] Co de Phone Number [facility] [address] [place] [address] * ECG AND WAVEFORMS - TELEMETRY (06/23/2025 11:59 PM EDT) ECG INTERPRET Sinus Bradycardia [facility] 06/23/2025 11:5 9 PM EDT Narrative [facility] - 06/24/2025 12:02 AM EDT qj Pause 3.57 See Clinical Report link for waveform capture us Unknown Provider POINT OF CARE CARDIOLOGY Final Result Performing Organization Address [facility] Co de Phone Number [facility] [address] [place] [address] * ECG AND WAVEFORMS - TELEMETRY (06/23/2025 11:59 PM EDT) ECG INTERPRET Atrial Fib [facility] 06/23/2025 11:5 9 PM EDT Narrative [facility] - 06/24/2025 12:00 AM EDT Afib/qj Pause 3.10 See Clinical Report link for waveform capture us Unknown Provider POINT OF CARE CARDIOLOGY Final Result Performing Organization Address City/[facility] Co de Phone Number [facility] [facility] [address] [place] [address] * ECG AND WAVEFORMS - TELEMETRY (06/23/2025 11:55 PM EDT) ECG INTERPRET Sinus Bradycardia [facility] 06/23/2025 11:5 5 PM EDT Narrative [facility] - 06/23/2025 11:56 PM EDT Pause 2.72 See Clinical Report link for waveform capture us Unknown Provider POINT OF CARE CARDIOLOGY Final Result Performing Organization Address [facility] Co de Phone Number [facility] [address] [place] [address] * ECG AND WAVEFORMS - TELEMETRY (06/23/2025 9:30 PM EDT) ECG INTERPRET Sinus Bradycardia [facility] 06/23/2025 9:30 PM EDT Narrative [facility] - 06/23/2025 9:34 PM EDT Pause 3.09 See Clinical Report link for waveform capture us Unknown Provider POINT OF CARE CARDIOLOGY Final Result Performing Organization Address [facility] Co de Phone Number [facility] [address] [place] [address] * ECG AND WAVEFORMS - TELEMETRY (06/23/2025 7:00 PM EDT) ECG INTERPRET Atrial Fib [facility] 06/23/2025 7:00 PM EDT Narrative [facility] - 06/23/2025 7:51 PM EDT Routine 1900/Frequent PVC/qj QRS 0.10 Pause 2.73 See Clinical Report link for waveform capture us Unknown Provider POINT OF CARE CARDIOLOGY Final Result Performing Organization Address [facility] Co de Phone Number [facility] [address] [place] [address] * ECG AND WAVEFORMS - TELEMETRY (06/23/2025 6:53 PM EDT) Pathologist [facility] ECG INTERPRET Sinus Bradycardia [facility] 06/23/2025 6:53 PM EDT Narrative [facility] - 06/23/2025 6:55 PM EDT -HB QRS 0.06 See Clinical Report link for waveform capture us Unknown Provider POINT OF CARE CARDIOLOGY Final Result Performing Organization Address [facility] de Phone Number [facility] [address] [place] [address] * EXTRA HUITRON URINE CX (06/23/2025 5:11 PM EDT) Urine STRUCTURE OF URINARY TRACT PROPER / Unknown 06/23/2025 5:11 PM EDT 06/23/2025 5:29 PM EDT us Duong Vitale MD MICROBIOLOGY - GENERAL ORDERA BLES Final Result Performing Organization Address [facility] de Phone Number [facility] [address] [phone] * URINALYSIS REFLEX (06/23/2025 5:11 PM EDT) UA Color Yellow 06/23/2025 5:33 PM EDT [facility] UA Appear Clear Clear 06/23/2025 5:33 PM EDT [facility] UA Glucose Negative Negative mg/dL 06/23/2025 5:33 PM EDT [facility] UA Ketones Negative Negative mg/dL 06/23/2025 5:33 PM EDT [facility] UA Blood Negative Negative 06/23/2025 5:33 PM EDT [facility] UA pH 6.5 5.0 - 8.0 pH 06/23/2025 5:33 PM EDT [facility] UA Protein Negative Negative mg/dL 06/23/2025 5:33 PM EDT [facility] UA Urobilinogen Normal <=1 mg/dL 5:33 PM EDT [facility] UA Bili Negative Negative 06/23/2025 5:33 PM EDT [facility] UA Nitrite Negative Negative 06/23/2025 5:33 PM EDT [facility] UA Leuk Est Negative Negative 06/23/2025 5:33 PM EDT [facility] UA Spec Grav 1.011 1.001 - 1.035 no units 06/23/2025 5:33 PM EDT [facility] Comment:Reference range helga d for random specimens only. UA WBC 1 0 - 4 /HPF 06/23/2025 5:33 PM EDT [facility] UA RBC 1 0 - 3 /HPF 06/23/2025 5:33 PM EDT [facility] Urine STRUCTURE OF URINARY TRACT PROPER / Unknown 06/23/2025 5:11 PM EDT 06/23/2025 5:29 PM EDT us Duong Vitale MD URINE ORDERABLES Final Result Performing Organization Address City/[facility]/ZIP Co de Phone Number [facility] [address] [phone] * ECG AND WAVEFORMS - TELEMETRY (06/23/2025 4:41 PM EDT) ECG INTERPRET Sinus Arrythmia [facility] 06/23/2025 4:41 PM EDT Narrative [facility] - 06/23/2025 4:45 PM EDT BIGEMINY ADMIT -HB QRS 0.09 See Clinical Report link for waveform capture us Unknown Provider POINT OF CARE CARDIOLOGY Final Result [facility] [address] [place] [address] * (ABNORMAL) TROPONIN-T HIGH SENSITIVITY 2HR (06/23/2025 4:11 PM EDT) um-pCbzpcljw-Z 2HR 83(H) <14 ng/L 06/23/2025 4:36 PM EDT [facility] hs-cTnT 2Hr Delta from Baseline -9 <4 ng/L 06/23/2025 4:36 PM EDT [facility] Blood VENOUS BLOOD / Unknown Venipuncture / Unknown 06/23/2025 4:11 PM EDT 06/23/2025 4:14 PM EDT Narrative [facility] - 06/23/2025 4:36 PM EDT Ingestion of angie doses of biotin (>5 mg/day) taken within 8 hours of drawing blood sample can interfere with this immunoassay test. 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 Small left and jisbp-jc-blaspudu right pleural effusions. Emphysema. 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 Small left and llphz-js-txryzghc right pleuraleffusions. Emphysema. Opacities dependently in the [...] the ordering clinician. us Stephan Rodriguez MD [facility] ORDER CELESTE Final Result * (ABNORMAL) NT PROBNP (06/23/2025 1:28 PM EDT) NT Pro-BNP 7,449(H) <=624 pg/mL 06/23/2025 1:58 PM EDT [facility] Blood VENOUS BLOOD / Unknown Venipuncture / Unknown 06/23/2025 1:28 PM EDT 06/23/2025 1:35 PM EDT Narrative [facility] - 06/23/2025 1:58 PM EDT An [...] ORDERABLES Final R esult Performing Organization Address City/[facility]/ZIP Co de Phone Number [facility] [address] [place] [address] * (ABNORMAL) PARTIAL THROMBOPLASTIN TIME (06/23/2025 1:28 PM EDT) PTT 37.0(H) 25.7 - 36.8 second(s) 06/23/2025 1:48 PM EDT [facility] Comment: Therapeutic range for unfractionated heparin: [...] HEMATOLOGY ORDERABLES Final Result Performing Organization Address [facility] Co de Phone Number [facility] [address] [place] [address] * (ABNORMAL) PT / INR (06/23/2025 1:28 PM EDT) PT 15.3(H) 10.5 - 13.6 second(s) 06/23/2025 1:48 PM EDT [facility] INR 1.32(H) 0.91 - 1.18 (ratio) 06/23/2025 1:48 PM EDT [facility] Comment: Level of Therapy Indications Target INR Range Standard Dose Treatment and prophylaxis of venous 2.0 - 3.0 thrombosis, pulmonary embolism High Dose High risk patients with mechanical 2.5 - 3.5 heart valves Blood VENOUS BLOOD / Unknown Venipuncture / Unknown 06/23/2025 1:28 PM EDT 06/23/2025 1:35 PM EDT Stephan Rodriguez MD HEMATOLOGY ORDERABLES Final Result Performing Organization Address [facility] Co de Phone Number [facility] [address] [place] [address] * (ABNORMAL) D-DIMER (06/23/2025 1:28 PM EDT) D-Dimer 1,389(H) <=500 ng/mL FEU 06/23/2025 1:48 PM EDT [facility] Comment:This is an automated latex enhanced immunoassay [...] HEMATOLOGY ORDERABLES Final Result Performing Organization Address [facility] de Phone Number [facility] [address] [place] [address] * (ABNORMAL) TROPONIN-T HIGH SENSITIVITY BASELINE W/ REFLEX (06/23/2025 1:28 PM EDT) mo-vHczyehhg-Z 92(H) <14 ng/L 06/23/2025 2:10 PM EDT [facility] Blood VENOUS BLOOD / Unknown Venipuncture / Unknown 06/23/2025 1:28 PM EDT 06/23/2025 1:35 PM EDT Narrative [facility] - 06/23/2025 2:10 PM EDT Ingestion of angie doses of biotin (>5 mg/day) taken within 8 hours of drawing blood sample can interfere with this immunoassay test. Stephan Rodriguez MD CHEMISTRY ORDERABLES Final R esult [facility] [address] [place] [address] * (ABNORMAL) BASIC METABOLIC PANEL (06/23/2025 1:28 PM EDT) Sodium 138 136 - 145 mmol/L 06/23/2025 1:58 PM EDT [facility] Potassium 4.5 3.5 - 5.0 mmol/L 06/23/2025 1:58 PM EDT [facility] Chloride 107 98 - 107 mmol/L 06/23/2025 1:58 PM EDT [facility] Total CO2 20(L) 22 - 29 mmol/L 06/23/2025 1:58 PM EDT [facility] Anion Gap 11 7 - 16 mmol/L 06/23/2025 1:58 PM EDT [facility] Calcium 9.1 8.8 - 10.4 mg/dL 06/23/2025 1:58 PM EDT [facility] Glucose Lvl 116(H) 70 - 99 mg/dL 06/23/2025 1:58 PM EDT [facility] BUN 10 8 - 23 mg/dL 06/23/2025 1:58 PM EDT [facility] Creatinine 0.84 0.51 - 1.30 mg/dL 06/23/2025 1:58 PM EDT [facility] eGFR (CKD-EPIcr 2020) 68 >=60 mL/min/1.7 3 m2 06/23/2025 1:58 PM EDT [facility] Comment:Estimated GFR was ca lculated using the CKD-EPIcr (2020) equation refit without race. The equation is recommended by the [employer] - [employer]ph[employer] Task Force. Blood VENOUS BLOOD / Unknown Venipuncture / Unknown 06/23/2025 1:28 PM EDT 06/23/2025 1:35 PM EDT Stephan Rodriguez MD CHEMISTRY ORDERABLES Final R esult Performing Organization Address City/[facility]/ZIP Co de Phone Number [facility] [address] [place] [address] * (ABNORMAL) CBC (06/23/2025 1:28 PM EDT) WBC 3.4(L) 3.7 - 10.3 x10(3)/mcL 06/23/2025 1:37 PM EDT [facility] RBC 2.72(L) 3.90 - 5.20 x10(6)/mcL 06/23/2025 1:37 PM EDT [facility] Hgb 10.2(L) 11.2 - 15.7 g/dL 06/23/2025 1:37 PM EDT [facility] Hct 30.1(L) 34.0 - 45.0 % 06/23/2025 1:37 PM EDT [facility] MCV 110.7(H) 80.0 - 100.0 fL 06/23/2025 1:37 PM EDT [facility] MCH 37.5(H) 26.0 - 34.0 pg 06/23/2025 1:37 PM EDT [facility] MCHC 33.9 30.7 - 35.5 g/dL 06/23/2025 1:37 PM EDT [facility] RDW 19.9(H) <=14.9 % 06/23/2025 1:37 PM EDT [facility] Platelet 84(L) 155 - 369 x10(3)/mcL 06/23/2025 1:37 PM EDT [facility] MPV 12.7(H) 8.8 - 12.5 fL 06/23/2025 1:37 PM EDT [facility] Blood VENOUS BLOOD / Unknown Venipuncture / Unknown 06/23/2025 1:28 PM EDT 06/23/2025 1:35 PM EDT Stephan Rodriguez MD HEMATOLOGY ORDERABLES Final Result Performing Organization Address City/[facility] Co de Phone Number [facility] [address] [place] [address] * EK EKG 12 LEAD (06/23/2025 1:16 PM EDT) Anatomical Region Laterality Modality Electrocardiogra phy 06/23/2025 1:20 PM EDT Impressions 06/23/2025 7:[address] 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 [facility] Test Date: 2025-06-23 Pat Name: SKYLER ALCAZARLIVAN Department: DEPID Room: [facility] Gender: Female [employer]: Femi : 1940 Requested By: STEPHAN Earl Order Number: [id number] Reading : Jaycob Sandoval Measurements Intervals [place] Rate: 139 P: 0 CT: 0 QRS: 65 QRSD: 82 T: 26 [...] (NUTR), 1 dose, On Tue06/26/25 at 1500, Dickinson now please Administer orally. Do not administer if NPO or on clear liquid diet. Not for IV use. Supplied by [facility] Given 06/26/2025 5:14 PM EDT 1 'box' GLUCERNA Therapeutic oral supplement 1 'box' 1 'box', Oral, 2 TIMES DAILY (NUTR), First dose on Tue06/26/25 at 2000, Until Discontinued, Dickinson Administer orally. Do not administer if NPO [...] by at least 3 hours. Insulin Calculator WEB PRODUCTION ASSISTANT - DBN, FLORINA, FTT, ICUs, and CVSICU [...] by at least 3 hours. Insulin Calculator WEB PRODUCTION ASSISTANT - DBN, FLORINA, FTT, ICUs, and CVSICU [...] by at least 3 hours. Insulin Calculator WEB PRODUCTION ASSISTANT - DBN, FLORINA, FTT, ICUs, and CVSICU [...] every 12 hours, in accordance with the freedom of information officer's recommendation., Goal RASS Score: 0, -1, -2, [...] RN)212 (Given - Provider: Radha Martinez RN) 06 [...] 0910 (Given - Provider: Tamia Morrow RN) 1010 (Given - Provider: Manuel Frey RN) 0946 [...] 910 (Given - Provider: Tamia Morrow RN) 1012 (Given - Provider: Manuel Frey RN) 0946 (Given - Provider: Manuel Frey RN) gabapentin (NEURONTIN) capsule 200 mg 200 mg, Oral, 3 TIMES DAILY, First dose (after last modification) on Tue06/30/25 at 2100, Until Discontinued, Capsules may be opened and contents dissolved in water for administration 2122 (Given - Provider: Radha Martinez RN) 101 (Given - Provider: Manuel Frey RN)142 (Given - Provider: Manuel Frey RN)2100 (Given - Provider: Radha Martinez, MAHENDRA) 0946 (Given - Provider: Manuel Frey RN) gabapentin (NEURONTIN) capsule 300 mg (CANCELED) 300 mg, Oral, 3 TIMES DAILY, First dose (after last modification) on Arlene 06/27/25 at 2100, Until Discontinued, Capsules may be opened and contents dissolved in water for administration 910 (Given - Provider: Tamia Morrow RN)145 (Given - Provider: Tamia Morrow RN) GLUCERNA Therapeutic oral supplement 1 'box' 1 'box', Oral, 2 TIMES DAILY (NUTR), First dose on Tue06/26/25 at 2000, Until Discontinued, Dickinson Administer orally. Do not administer if NPO [...] by at least 3 hours. Insulin Calculator WEB PRODUCTION ASSISTANT - DBN, FLORINA, FTT, ICUs, and CVSICU [...] other night) 2102 (Given - Provider: Radha Martinez RN) levETIRAcetam (KEPPRA) tablet 750 mg 750 mg, Oral, 2 TIMES DAILY, First dose on Arlene 06/27/25 at 2100, Until Discontinued 910 (Given - Provider: Tamia Morrow RN)2122 (Given - Provider: Radha Martinez RN) 101 (Given - Provider: Manuel Frey RN)2100 (Given - Provider: Radha Martinez RN) 0946 (Given - Provider: Manuel Frey, MAHENDRA) losartan (COZAAR) tablet 25 mg 25 mg, Oral, DAILY, First dose on Arlene 06/27/25 at 1345, Until Discontinued 910 (Given - Provider: Tamia Morrow RN) 101 (Given - Provider: Manuel Frey RN) 0946 (Given - Provider: Manuel Frey, RN) magnesium citrate solution 296 mL (COMPLETED) [...] Manuel Frey RN)2100 (Given - Provider: Radha Martinez, MAHENDRA) 0946 (Given - Provider: Manuel Frey RN) senna-docusate (SENOKOT-S) 8.6-50 mg per tablet 3 Tablet 3 Tablet, Oral, 2 TIMES DAILY, First dose on 07/01/25 at 1445, Until Discontinued 142 (Given - Provider: Manuel Frey, RN)2100 (Not Given - Provider: Radha Martinez RN [...] Patient Declined)1428 (Given - Provider: Manuel Frey RN)210 (Given - Provider: Radha Martinez RN) 0600 [...] Anxiety 0010 (Given - Provider: Candelario Cook RN)2131 (Given - Provider: Radha Martinez RN) 2100 [...] preference. 1012 (Given - Provider: Manuel Frey, MAHENDRA) sodium chloride 0.9% IV line flush 20-50 [...] by at least 3 hours. Insulin Calculator WEB PRODUCTION ASSISTANT - DBN, FLORINA, FTT, ICUs, and CVSICU [...] Oral, EVERY 4 HOURS PRN, Starting on 06/23/25 at 1540, Until Tue07/02/25 at 1513, Nausea Or ondansetron (ZOFRAN) injection 4 mgJump to med 4 mg, Intravenous, EVERY 4 HOURS PRN, Starting on 06/23/25 at 1540, Until Tue07/02/25 at 1513, Nausea documented in this encounter Orders Medications Ordered That Rick ht Not Have Been Administered Count Last Ordered Date First Ordered Date Insulin Calculator - FSBS (C orrection Only) Intake Input 1 06/28/2025 insulin aspart U-100 (NovoLO G) injection 0-40 Units 2 06/25/2025 06/24/2025 Insulin Calculator (WEB PRODUCTION ASSISTANT) - FSBS (Correction Only) Intake Input 3 [...] - Potassium 1 0 06/24/2025 Insulin Calculator (WEB PRODUCTION ASSISTANT) - FSBS (Correction Only) Input 1 06/24/2025 [...] UROLOGY 1 06/25/2025 IP CONSULT TO MEDICAL SENIOR PROCUREMENT MANAGER 1 025 IP CONSULT TO NEUROLOGY 1 06/24/2025 IP CONSULT TO NUTRITION 1 06/24/2025 IP CONSULT TO CARDIOLOGY 1 06/23/2025 IP CONSULT TO VASCULAR SURGERY 1 06/23/2025 OT Count Last Ordered Date First Orde red Date IP CONSULT TO OCCUPATIONAL THERAPY 1 2024 PT Count Last Ordered Date First Orde red Date IP CONSULT TO PHYSICAL THERAPY 1 06/26/2025 SUMATRA OPENER Count Last Ordered Date First Orde red [...] documented as of this encounter Care Teams Internal Control Specialist Relationship Specialty Start Date End Date No Pcp, Per Patient PCP - General 06/04/24 documented as of this encounter
--- OUTSIDE RECORDS SUMMARY | 2025-07-28 09:10 | XMS_ITS | Clinical Summary ---
Author Organization [facility] Address [address] [place] [address], [address] [place] [address] Care Team Providers Care Head Neck Surgeon Name Role Phone Jay Howell MD Primary Care Provider [phone] Allergies Active Allergy Reactions Criticality Noted Date Comments Nitrofurantoin Hives,Itching,Other (See Comments),Rash Medium 06/14/2013 Macrobid Medications No known medications Social History Tobacco Use Types Packs/Day Years [...] on patient's age [place] [address] MEDICARE Care Teams Head Neck Surgeon Relationship Specialty Start Date End Date Jay Howell MD [facility] [place] [phone] PCP - General Emergency Medicine 03/06/25
--- OUTSIDE RECORDS SUMMARY | 2025-07-28 09:10 | XMS_ITS | Encounter Summary ---
Author Organization [employer] ([place], [place], [place], [place]) Address [address] [place] [address] Care Team Providers Care Fitness Attendant Name Role Phone Jay Howell MD Primary Care Provider [phone] Encounter Details Date Type Department Care Team (Late st Contact Info) Description 08/25/2020 Transcribed Document [facility] [place] Family Medicine [address] [place] [address] ProviderJessie MD [address] [place] [address] Social History Tobacco Use Types Packs/Day Years Used Date Smoking Tobacco: Never Assessed Comments Unknown Sex and Gender Information Value Date Recorded Sex Assigned at Not on file Legal Sex Female 7:30 PM CDT Gender Identity Not on file Sexual Orientation Not on file documented as of this encounter Miscellaneous Notes * Cerner Conversion Note - Historical MD Alpa - 08/25/2020 6:23 AM GROCERY CLERK MARKING Patient: SKYLER MONTOYA Age: 79 years Sex: [...] multiple stent placements. The patient presented to [facility] ER after recent fall with [...] Application, Topical, TID, 22 Gram, 0 Refill(s) Clutier 7.5 mg-325 mg oral tablet: 1 Tab, [...] Problem list: Medical Arthritis / SNOMED CT 4457170 / Confirmed Atrial fibrillation with RVR / SNOMED CT 0256171901 / Confirmed Cataract / Patient Care / Confirmed Chest pain / SNOMED CT 00063247 / Complaint of COPD / SNOMED CT 81323916 / Confirmed Coronary artery disease / SNOMED CT 9575546758 / Confirmed Diabetes mellitus / SNOMED CT 527780670 / Confirmed GERD - Gastro-esophageal reflux disease / SNOMED CT 3734056822 / Confirmed Glaucoma / Patient Care / Confirmed Chronic anticoagulation / SNOMED CT 889120325 / Confirmed Hx of pulmonary embolus / SNOMED CT 079106069 / Confirmed High blood pressure / SNOMED CT 50396891 / Confirmed History of obstructive sleep apnea / IMO 03818940 / Confirmed Hyperlipidemia / SNOMED CT 18212838 / Confirmed Multiple renal cysts / SNOMED CT 232453321 / Confirmed Emphysema / SNOMED CT 912394316 / Confirmed Apnea, sleep / SNOMED CT 893939167 / Confirmed Stented coronary artery / SNOMED CT 3388505210 / Confirmed UTI - Urinary tract infection / SNOMED CT 7536108043 / Confirmed, Active Problems (21) Apnea, sleep [...] History: Active Cataract Glaucoma Coronary artery disease (7981669786) Stented coronary artery (8120448765) High blood pressure (55158970) Hyperlipidemia (60537631) COPD (11991206) GERD - Gastro-esophageal reflux disease (7525970580) Multiple renal cysts (576440560) UTI - Urinary tract infection (1130196439) Arthritis (9254015) Diabetes mellitus (360426563) Emphysema (934035271) Apnea, sleep (276712864) Hx of pulmonary embolus (706160960) Chronic anticoagulation (055307035) Atrial fibrillation with RVR (0427030064) Family History: Cardiomyopathy Child Stroke Brother Heart attack Brother Sister Leukemia Child Cancer Father Mother Sister Coronary heart disease Child , Significant for hypertension Procedure history: Cardiac Stent in 2010 at 70 Years. Cardiac Stent on 01/30/2008 at 67 Years. Comments: 06/13/2020 8:52 THERESET - EVA WESLEY RN PCI w/ Warbranch stent to D1 Coronary artery bypass graft ([id number]) in 1992 at 52 Years. femur repair. Appendectomy (011069788). uterine suspension. Hysterectomy (713480430). back surgury. Cholecystectomy (44087944). Hip replacement (5180285229). cataract surgury. Social History Social & Psychosocial [...] on filedocumented in this encounter Care Teams Fitness Attendant Relationship Specialty Start Date End Date Jay Howell MD [address] [place] [phone] PCP - General Emergency Medicine 11/12/23 documented as of this encounter
--- OUTSIDE RECORDS SUMMARY | 2025-07-28 09:10 | XMS_ITS | Encounter Summary ---
Author Organization [employer] ([place], [place], [place], [place]) Address [address] [place] [address] Care Team Providers Care Kinesiology Professor Name Role Phone Jay Howell MD Primary Care Provider [phone] Encounter Details Date Type Department Care Team (Late st Contact Info) Description 08/25/2020 Transcribed Document [facility] [place] Family Medicine [address] [place] [address] ProviderJessie MD [address] [place] [address] Social History Tobacco Use Types Packs/Day Years Used Date Smoking Tobacco: Never Assessed Comments Unknown Sex and Gender Information Value Date Recorded Sex Assigned at Not on file Legal Sex Female 7:30 PM CDT Gender Identity Not on file Sexual Orientation Not on file documented as of this encounter Miscellaneous Notes * Cerner Conversion Note - Historical ProviderMD - 08/25/2020 4:33 AM SENIOR INTERACTIVE PRODUCER Broset Violence Assessment Entered On: 08/25/2020 5:10 [...] on filedocumented in this encounter Care Teams Kinesiology Professor Relationship Specialty Start Date End Date Jay Howell MD [address] [place] [phone] PCP - General Emergency Medicine 11/12/23 documented as of this encounter
--- OUTSIDE RECORDS SUMMARY | 2025-07-28 09:10 | XMS_ITS | Encounter Summary ---
Author Organization [employer] ([place], [place], [place], [place]) Address [address] [place] [address] Care Team Providers Care Cloud Automation Tester Name Role Phone Jay Howell MD Primary Care Provider [phone] Encounter Details Date Type Department Care Team (Late st Contact Info) Description 03/16/2021 Transcribed Document [facility] [place] Family Medicine [address] [place] [address] ProviderJessie MD [address] [place], [place] [address] Social History Tobacco Use Types Packs/Day Years [...] on filedocumented in this encounter Care Teams Cloud Automation Tester Relationship Specialty Start Date End Date Jay Howell MD [address] [place] [phone] PCP - General Emergency Medicine 11/12/23 documented as of this encounter
--- OUTSIDE RECORDS SUMMARY | 2025-07-28 09:10 | XMS_ITS | Encounter Summary ---
Author Organization [employer] ([place], [place], [place], [place]) Address [address] [place] [address] Care Team Providers Care Jailer Chief Name Role Phone Jay Howell MD Primary Care Provider [phone] Encounter Details Date Type Department Care Team (Late st Contact Info) Description 03/17/2021 Transcribed Document [facility] [place] Family Medicine [facility] [place] [address] ProviderJessie MD [address] [place] [address] Social History Tobacco Use Types Packs/Day Years [...] 03/17/2021 10:01 EDT by Krystina Giang V Certified Shorthand Reporter Felipe Initial Assessment I Legal Guardian : No Krystina Giang V Certified Shorthand Reporter Felipe - 03/17/2021 14:24 EDT Previously Documented Living Environment : No qualifying data available. Living Situation : Home Patient Lives With : Spouse Employment/Vocation : retired Emergency Contact #1 : Leonardo Emergency Contact #1 Emergency Contact #1 Relationship : Son Emergency Contact #2 : Christian Emergency Contact #2 Emergency Contact #2 Relationship : Son Rahat Social Kayla Khoury [facility] [place] 03/17/2021 10:01 EDT Enter Doctors Name : Krystina Welsh Social Worker [facility] 03/17/2021 14:24 EDT Does Patient have PCP Listed? : Yes Medical Durable Power of Physician Assistant Name : No Krystina Giang Social Worker [facility] [place] 03/17/2021 10:01 EDT Initial Assessment II Sensory and Motor Deficits : Weakness Krystina Giang Social Worker [facility] 03/17/2021 10:01 EDT Current Home Treatments and Equipment : Bedside commode, CPAP, Shower chair, Walker, Wheelchair Krystina Giang Social Worker [facility] 03/17/2021 14:24 EDT Discharge Needs I Anticipated Discharge Date : 03/19/2021 EDT Anticipated Discharge To, CM : Home with home health Krystina Giang Social Worker [facility] [place] 03/17/2021 14:24 EDT Current Home Treatment/Equipment : Current Home Treatment/Equipment No qualifying data available. Documentation Status Complete : Yes Krystina Giang Social Worker [facility] 03/17/2021 10:01 EDT Discharge Needs II Professional Skilled Services : Professional Skilled Services No qualifying data available. Needs Assistance with Transportation : No Discharge Options Discussed with Patient : Discharge transportation, DME, Home Health, Short term rehabilitation Krystina Giang Social Worker [facility] 03/17/2021 10:01 EDT Narrative Note Narrative Note : HD#1, ELOS-not reported, RRS-Moderate, Boost- 80 yo female admitted for syncopal episide. She fell and hit her head and suffered a right wrist fracture. Cardiology, Neurology, Orthopedics consults noted. She lives with her spouse. Independent with ADLs prior to admission. DME-walker, shower chair, BSC, cpap thru [facility] in [place]. No home 02. HHS in the past out of [place]. Denies rehab stays. DCP-Home with spouse. Possible HHPT/OT CM to follow Krystina Giang Social Worker [facility] [place] 03/17/2021 14:24 EDT documented in this encounter Plan of Treatment Not on file documented as of this encounter Visit Diagnoses Not on filedocumented in this encounter Care Teams Jailer Chief Relationship Specialty Start Date End Date Jay Howell MD [address] [place] [phone] PCP - General Emergency Medicine 11/12/23 documented as of this encounter
--- OUTSIDE RECORDS SUMMARY | 2025-07-28 09:10 | XMS_ITS | Encounter Summary ---
Author Organization [employer] ([place], [place], [place], [place]) Address [address] [place] [address] Care Team Providers Care Maintenance Aide Name Role Phone Jay Howell MD Primary Care Provider [phone] Encounter Details Date Type Department Care Team (Late st Contact Info) Description 03/17/2021 Transcribed Document [facility] [place] [address] [place] [address] ProviderJessei MD [address] [place], [place] [address] Social History Tobacco Use Types Packs/Day Years [...] PHYSICAL THERAPIST NON-EXEMPT - 03/18/2021 12:18 EDT Fdc Goals Mobility/Bed Mobility LTG PT Grid Goal [...] filedocumented in this encounter Care Teams Maintenance Aide Relationship Specialty Start Date End Date Jay Howell MD [address] [place] [phone] PCP - General Emergency Medicine 11/12/23 documented as of this encounter
--- OUTSIDE RECORDS SUMMARY | 2025-07-28 09:10 | XMS_ITS | Encounter Summary ---
Author Organization [employer] ([place], [place], [place], [place]) Address [address] [place] [address] Care Team Providers Care Cae Engineer Name Role Phone Jay Howell MD Primary Care Provider [phone] Encounter Details Date Type Department Care Team (Late st Contact Info) Description 03/17/2021 Transcribed Document [facility] [place] Family Medicine [address] [place] [address] ProviderJessie MD [address] [place] [address]89881 Social History Tobacco Use Types Packs/Day Years [...] Lymph # 1.52 x10(3)/uL 03/16/2021 11:38 EDT King % 5.1 % 03/16/2021 11:38 EDT King # 0.50 K/uL 03/16/2021 11:38 EDT Eos [...] Appearance CLEAR2 03/16/2021 14:09 EDT Urine Specific [place] 1.015 03/17/2021 04:10 EDT Urine Specific [place] 1.014 03/16/2021 14:09 EDT Urine pH Dipstick [...] on filedocumented in this encounter Care Teams Cae Engineer Relationship Specialty Start Date End Date Jay Howell MD [address] [place] [phone] PCP - General Emergency Medicine 11/12/23 documented as of this encounter
--- OUTSIDE RECORDS SUMMARY | 2025-07-28 09:10 | XMS_ITS | Encounter Summary ---
Author Organization [employer] ([place], [place], [place], [place]) Address [address] [place] [address] Care Team Providers Care Atm Manager Name Role Phone Jay Howell MD Primary Care Provider [phone] Encounter Details Date Type Department Care Team (Late st Contact Info) Description 03/17/2021 Transcribed Document [facility] [place] Family [place] [facility] [place] [address] ProviderJessie MD [address] [place], [place] [address] Social History Tobacco Use Types Packs/Day Years [...] Emp RN Intervention Information: oxyCODONE Performed by Sraah Vivar Non Emp RN on 03/17/2021 21:21:00 [...] of the form. Electronically signed by Sivan, [facility] Conversion Insurance Claims Supervisor Cerner at 02/04/2023 2:00 PM CDT documented in this encounter Plan of Treatment Not on file documented as of this encounter Visit Diagnoses Not on filedocumented in this encounter Care Teams Atm Manager Relationship Specialty Start Date End Date Jay Howell MD [address] [place] [phone] PCP - General Emergency Medicine 11/12/23 documented as of this encounter
--- OUTSIDE RECORDS SUMMARY | 2025-07-28 09:10 | XMS_ITS | Encounter Summary ---
Author Organization [employer] ([place], [place], [place], [place]) Address [address] [place] [address] Care Team Providers Care Pneumatic Tester Mechanic Name Role Phone Jay Howell MD Primary Care Provider [phone] Encounter Details Date Type Department Care Team (Late st Contact Info) Description 03/17/2021 Transcribed Document [facility] [place] [address] ProviderJessie MD [address] [place], [place] [address] Social History Tobacco Use Types Packs/Day Years [...] on filedocumented in this encounter Care Teams Pneumatic Tester Mechanic Relationship Specialty Start Date End Date Jay Howell MD [address] [place] [phone] PCP - General Emergency Medicine 11/12/23 documented as of this encounter
--- OUTSIDE RECORDS SUMMARY | 2025-07-28 09:10 | XMS_ITS | Encounter Summary ---
Author Organization [employer] ([place], [place], [place], [place]) Address [address] [place] [address] Care Team Providers Care Technology Recruiter Name Role Phone Jay Howell MD Primary Care Provider [phone] Encounter Details Date Type Department Care Team (Late st Contact Info) Description 08/25/2020 Transcribed Document [facility] [place] Family Medicine [address] [place] [address] ProviderJessie MD [address] [place] [address] Social History Tobacco Use Types Packs/Day Years Used Date Smoking Tobacco: Never Assessed Comments Unknown Sex and Gender Information Value Date Recorded Sex Assigned at Not on file Legal Sex Female 7:30 PM CDT Gender Identity Not on file Sexual Orientation Not on file documented as of this encounter Miscellaneous Notes * Cerner Conversion Note - Jessie Yuen MD - 08/25/2020 7:20 AM ORTHODONTIC LAB TECHNICIAN Patient: SKYLER MONTOYA Age: 79 years Sex: [...] multiple stent placements. The patient presented to [facility] ER after recent fall with hematoma required [...] with her . She has a strong oriental orthodox treasure. She alex like to stay Full [...] filedocumented in this encounter Care Teams Technology Recruiter Relationship Specialty Start Date End Date Jay Howell MD [address] [place] [phone] PCP - General Emergency Medicine 11/12/23 documented as of this encounter
--- OUTSIDE RECORDS SUMMARY | 2025-07-28 09:10 | XMS_ITS | Encounter Summary ---
Author Organization [employer] ([place], [place], [place], [place]) Address [address] [place] [address] Care Team Providers Care Jig Grinder Set Up Operator Name Role Phone Jay Howell MD Primary Care Provider [phone] Encounter Details Date Type Department Care Team (Late st Contact Info) Description 08/25/2020 Transcribed Document [facility] [place] Family Medicine [address] [place] [address] ProviderJessie MD [address] [place] [address] Social History Tobacco Use Types Packs/Day Years Used Date Smoking Tobacco: Never Assessed Comments Unknown Sex and Gender Information Value Date Recorded Sex Assigned at Not on file Legal Sex Female 7:30 PM CDT Gender Identity Not on file Sexual Orientation Not on file documented as of this encounter Miscellaneous Notes * Cerner Conversion Note - Jessie ProviderMD - 08/25/2020 4:33 AM LOSS CONTROL TECHNICIAN ED Triage Entered On: 08/25/2020 4:45 EST [...] : 3 - Urgent Tracking Group : [facility] ED Deisi Vasquez RN - 08/25/2020 [...] 04:45:44 EST) Problems(Active) Apnea, sleep (SNOMED CT :951625743 ) Name of Problem: Apnea, sleep ; Recorder: JUAN LUIS GIL RN; Confirmation: Confirmed ; Classification: Medical ; Code: 425279006 ; Contributor System: PowerChart ; Last Updated: 11/12/2014 10:12 EST ; Life Cycle Date: 11/12/2014 ; Life Cycle Status: Active ; Vocabulary: SNOMED CT Arthritis (SNOMED CT :4286234 ) Name of Problem: Arthritis ; Recorder: KENYON CHAMBERS RN; Confirmation: Confirmed ; Classification: Medical ; Code: 1290024 ; Contributor System: PowerChart ; Last Updated: 04/10/2016 8:04 EDT ; Life Cycle Date: 08/13/2013 ; Life Cycle Status: Active ; Vocabulary: SNOMED CT Atrial fibrillation with RVR (SNOMED CT :1417331722 ) Name of Problem: Atrial fibrillation with RVR ; Recorder: SANG RICO APRN; Confirmation: Confirmed ; Classification: Medical ; Code: 5875161210 ; Contributor System: PowerChart ; Last Updated: 04/10/2016 8:05 EDT ; Life Cycle Date: 04/10/2016 ; Life Cycle Status: Active ; Responsible Provider: SANG RICO APRN; Vocabulary: SNOMED CT Blood clot (SNOMED CT :671808091 ) Name of Problem: Blood clot ; Recorder: KENYON CHAMBERS RN; Confirmation: Confirmed ; Classification: Patient Stated ; Code: 738926716 ; Contributor System: PowerChart ; Last Updated: [...] Vocabulary: Patient Care Chest pain (SNOMED CT :28041229 ) Name of Problem: Chest pain ; Recorder: SANG RICO APRN; Confirmation: Complaint of ; Classification: Medical ; Code: 75229940 ; Contributor System: OpenDoorChart ; Last Updated: 04/10/2016 8:05 EDT ; Life Cycle Status: Active ; Responsible Provider: SANG RICO APRN; Vocabulary: SNOMED CT Chronic anticoagulation (SNOMED CT :654842964 ) Name of Problem: Chronic anticoagulation ; Recorder: SANG RICO APRN; Confirmation: Confirmed ; Classification: Medical ; Code: 962743914 ; Contributor System: PowerChart ; Last Updated: 04/10/2016 8:05 EDT ; Life Cycle Date: 04/10/2016 ; Life Cycle Status: Active ; Responsible Provider: SANG RICO APRN; Vocabulary: SNOMED CT Clotting disorder (SNOMED CT :798677244 ) Name of Problem: Clotting disorder ; Recorder: KENYON CHAMBERS RN; Confirmation: Confirmed ; Classification: Patient Stated ; Code: 356965955 ; Contributor System: OpenDoorChart ; Last Updated: 03/28/2014 19:29 EDT ; Life Cycle Date: 08/13/2013 ; Life Cycle Status: Active ; Vocabulary: SNOMED CT COPD (SNOMED CT :34728596 ) Name of Problem: COPD ; Recorder: KENYON CHAMBERS RN; Confirmation: Confirmed ; Classification: Medical ; Code: 68803266 ; Contributor System: OpenDoorChart ; Last Updated: 04/10/2016 8:03 EDT ; Life Cycle Date: 08/13/2013 ; Life Cycle Status: Active ; Vocabulary: SNOMED CT Coronary artery disease (SNOMED CT :0737797766 ) Name of Problem: Coronary artery disease ; Recorder: KENYON CHAMBERS RN; Confirmation: Confirmed ; Classification: Medical ; Code: 5219661185 ; Contributor System: OpenDoorChart ; Last Updated: 04/10/2016 8:03 EDT ; Life Cycle Date: 08/13/2013 ; Life Cycle Status: Active ; Vocabulary: SNOMED CT Diabetes mellitus (SNOMED CT :157038517 ) Name of Problem: Diabetes mellitus ; Recorder: KENYON CHAMBERS RN; Confirmation: Confirmed ; Classification: Medical ; Code: 027062801 ; Contributor System: OpenDoorChart ; Last Updated: 04/10/2016 8:04 EDT ; Life Cycle Date: 08/13/2013 ; Life Cycle Status: Active ; Vocabulary: SNOMED CT Emphysema (SNOMED CT :800250900 ) Name of Problem: Emphysema ; Recorder: JUAN LUIS GIL RN; Confirmation: Confirmed ; Classification: Medical ; Code: 881265540 ; Contributor System: PowerChart ; Last Updated: 11/12/2014 10:11 EST ; Life Cycle Date: 11/12/2014 ; Life Cycle Status: Active ; Vocabulary: SNOMED CT GERD - Gastro-esophageal reflux disease (SNOMED CT :3490145560 ) Name of Problem: GERD - Gastro-esophageal reflux disease ; Recorder: KENYON CHAMBERS RN; Confirmation: Confirmed ; Classification: Medical ; Code: 8004939975 ; Contributor System: PowerChart ; Last Updated: [...] Patient Care High blood pressure (SNOMED CT :92135761 ) Name of Problem: High blood pressure ; Recorder: KENYON CHAMBERS RN; Confirmation: Confirmed ; Classification: Medical ; Code: 65563071 ; Contributor System: PowerChart ; Last Updated: 04/10/2016 8:03 EDT ; Life Cycle Date: 08/13/2013 ; Life Cycle Status: Active ; Vocabulary: SNOMED CT History of obstructive sleep apnea (IMO :64336512 ) Name of Problem: History of obstructive sleep apnea ; Recorder: SYSTEM, SYSTEM; Confirmation: Confirmed ; Classification: Medical ; Code: 30941056 ; Last Updated: 12/20/2018 12:01 EST ; Life Cycle Date: 12/20/2018 ; Life Cycle Status: Active ; Vocabulary: IMO Hx of pulmonary embolus (SNOMED CT :191165714 ) Name of Problem: Hx of pulmonary embolus ; Recorder: SANG RICO APRN; Confirmation: Confirmed ; Classification: Medical ; Code: 878595171 ; Contributor System: PowerChart ; Last Updated: 04/10/2016 8:05 EDT ; Life Cycle Date: 04/10/2016 ; Life Cycle Status: Active ; Responsible Provider: SANG RICO APRN; Vocabulary: SNOMED CT Hyperlipidemia (SNOMED CT :34597934 ) Name of Problem: Hyperlipidemia ; Recorder: KENYON CHAMBERS RN; Confirmation: Confirmed ; Classification: Medical ; Code: 61168918 ; Contributor System: PowerChart ; Last Updated: 04/10/2016 8:03 EDT ; Life Cycle Date: 08/13/2013 ; Life Cycle Status: Active ; Vocabulary: SNOMED CT Multiple renal cysts (SNOMED CT :032120137 ) Name of Problem: Multiple renal cysts ; Recorder: KENYON CHAMBERS RN; Confirmation: Confirmed ; Classification: Medical ; Code: 539566593 ; Contributor System: PowerChart ; Last Updated: 04/10/2016 8:04 EDT ; Life Cycle Date: 08/13/2013 ; Life Cycle Status: Active ; Vocabulary: SNOMED CT Stented coronary artery (SNOMED CT :6876796247 ) Name of Problem: Stented coronary artery ; Recorder: KENYON CHAMBERS RN; Confirmation: Confirmed ; Classification: Medical ; Code: 4176198710 ; Contributor System: PowerChart ; Last Updated: 04/10/2016 8:03 EDT ; Life Cycle Date: 08/13/2013 ; Life Cycle Status: Active ; Vocabulary: SNOMED CT UTI - Urinary tract infection (SNOMED CT :1396073915 ) Name of Problem: UTI - Urinary tract infection ; Recorder: KENYON CHAMBERS RN; Confirmation: Confirmed ; Classification: Medical ; Code: 0848607296 ; Contributor System: PowerChart ; Last Updated: 04/10/2016 8:04 EDT ; Life Cycle Date: 08/13/2013 ; Life Cycle Status: Active ; Vocabulary: SNOMED CT Diagnoses(Active) Medical screening exam Date: 08/25/2020 ; Diagnosis Type: Reason For Visit ; Confirmation: Complaint of ; Clinical Dx: Medical screening exam ; Classification: Medical ; Clinical Service: Non-Specified ; Code: PNED ; Probability: 0 ; Diagnosis Code: [id number] ED Height and Weight Height Source : Stated Height Entry Format : [place] Height, Feet : 5 ft(Converted to: 152 cm, 60 Inch) Height, Inches : 3 Inch(Converted to: 0 ft 3 Inch, 7.62 cm) Clinical Height : 160.02 cm Weight Source, ED : Critical estimated dosing weight Weight Entry Format : [place] Weight, Pounds : 152 lb Clinical Dosing Weight : 69.09 kg Body Surface Area (BSA) : 1.72 m2 Body Mass Index : 27 kg/m2 (HI) [place] Body Weight (IBW) : 52.02 kg Deisi Vasquez RN - 08/25/2020 4:41 EST Electronically signed by [facility] Conversion Castings Drafter Cerner at 02/04/2023 1:59 PM CDT documented in this encounter Plan of Treatment Not on file documented as of this encounter Visit Diagnoses Not on filedocumented in this encounter Care Teams Jig Grinder Set Up Operator Relationship Specialty Start Date End Date Jay Howell MD [address] [place] [phone] PCP - General Emergency Medicine 11/12/23 documented as of this encounter
--- OUTSIDE RECORDS SUMMARY | 2025-07-28 09:10 | XMS_ITS | Encounter Summary ---
Author Organization [employer] ([place], [place], [place], [place]) Address [address] [place] [address] Care Team Providers Care Motel Clerk Name Role Phone Jay Howell MD Primary Care Provider [phone] Encounter Details Date Type Department Care Team (Late st Contact Info) Description 03/18/2021 Transcribed Document [facility] [place] Family Medicine [address] [place] [address] ProviderJessie MD [address] [place] [address] [phone] Social History Tobacco Use Types Packs/Day Years [...] 03/18/2021 15:01 EDT by Krystina Giang V, Marketing Mgr Social Contact Worker Care Management Progress Note Discharge Arrangements : [...] Multidisciplinary Rounds? : Yes Krystina Giang V Marketing Mgr [facility] [place]/18/2021 15:01 EDT Narrative Progress Note [...] to follow dc plan Krystina Giang V Marketing Mgr [facility] [place] 03/18/2021 15:01 EDT Electronically signed by Sivan [facility] Conversion Deck Mechanic Cerner at 02/04/2023 1:55 PM CDT documented in this encounter Plan of Treatment Not on file documented as of this encounter Visit Diagnoses Not on filedocumented in this encounter Care Teams Motel Clerk Relationship Specialty Start Date End Date Jay Howell MD [address] [place] [phone] PCP - General Emergency Medicine 11/12/23 documented as of this encounter
--- OUTSIDE RECORDS SUMMARY | 2025-07-28 09:10 | XMS_ITS | Encounter Summary ---
Author Organization [employer] ([place], [place], [place], [place]) Address [address] [place] [address] Care Team Providers Care Clinic Licensed Practical Nurse Name Role Phone Jay Howell MD Primary Care Provider [phone] Encounter Details Date Type Department Care Team (Late st Contact Info) Description 08/25/2020 Transcribed Document [facility] [place] [address] [place] [address] ProviderJessie MD [address] [place] [address] Social History Tobacco Use Types Packs/Day Years Used Date Smoking Tobacco: Never Assessed Comments Unknown Sex and Gender Information Value Date Recorded Sex Assigned at Not on file Legal Sex Female 7:30 PM CDT Gender Identity Not on file Sexual Orientation Not on file documented as of this encounter Miscellaneous Notes * Cerner Conversion Note - Jessie Yuen MD - 08/25/2020 7:11 AM CARD GRINDER Pain Assessment Entered On: 08/26/2020 1:56 EST [...] on filedocumented in this encounter Care Teams Clinic Licensed Practical Nurse Relationship Specialty Start Date End Date Jay Howell MD [address] [place] [phone] PCP - General Emergency Medicine 11/12/23 documented as of this encounter
--- OUTSIDE RECORDS SUMMARY | 2025-07-28 09:10 | XMS_ITS | Encounter Summary ---
Author Organization [employer] ([place], [place], [place], [place]) Address [address] [place] [address] Care Team Providers Care Med Care Manager Name Role Phone Jay Howell MD Primary Care Provider [phone] Encounter Details Date Type Department Care Team (Late st Contact Info) Description 03/16/2021 Transcribed Document [facility] [place] [facility] [place] [address] ProviderJessie MD [address] [place] [address] [phone] Social History Tobacco Use Types Packs/Day Years [...] of the form. Electronically signed by Sivan [facility] Conversion Hearing Therapy Director Cerner at 02/06/2023 12:48 PM CDT documented in this encounter Plan of Treatment Not on file documented as of this encounter Visit Diagnoses Not on filedocumented in this encounter Care Teams Med Care Manager Relationship Specialty Start Date End Date Jay Howell MD [address] [place] [phone] PCP - General Emergency Medicine 11/12/23 documented as of this encounter
--- OUTSIDE RECORDS SUMMARY | 2025-07-28 09:10 | XMS_ITS | Encounter Summary ---
Author Organization [employer] ([place], [place], [place], [place]) Address [address] [place] [address] Care Team Providers Care Manipulative Therapy Specialist Name Role Phone Jay Howell MD Primary Care Provider [phone] Encounter Details Date Type Department Care Team (Late st Contact Info) Description 03/17/2021 Transcribed Document [facility] [place] [address] [place] [address] ProviderJessie MD [address] [place] [address] Social History Tobacco Use Types Packs/Day Years [...] pain. SOCIAL HISTORY: The patient lives in [place] with her . She has 3 children, 2 of whom are living. 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 She still drives and walks independently. FAMILY [...] are 0 to 1+. Coordination shows intact [id number] on the left and hziv-pq-ngla on both sides. Gait was not tested. [...] her . I will follow with you. /[id number] Arron Clarke MD WSB/AQ / WSB / MODL /[id number] documented in this encounter Plan of Treatment Not on file documented as of this encounter Visit Diagnoses Not on filedocumented in this encounter Care Teams Manipulative Therapy Specialist Relationship Specialty Start Date End Date Jay Howell MD [address] [place] [phone] PCP - General Emergency Medicine 11/12/23 documented as of this encounter
--- OUTSIDE RECORDS SUMMARY | 2025-07-28 09:10 | XMS_ITS | Encounter Summary ---
Author Organization [employer] ([place], [place], [place], [place]) Address [address] [place] [address] Care Team Providers Care Health And Physical Education Teacher Name Role Phone Jay Howell MD Primary Care Provider [phone] Encounter Details Date Type Department Care Team (Late st Contact Info) Description 03/17/2021 Transcribed Document [facility] [place] [facility] [place] [address] ProviderJessie MD [address] [place] [address] [phone] Social History Tobacco Use Types Packs/Day Years [...] 03/17/2021 14:49 EDT Electronically signed by Sivan [facility] Conversion Supervisor Tree Fruit And Nut Farming Cerner at 02/04/2023 2:21 PM CDT documented in this encounter Plan of Treatment Not on file documented as of this encounter Visit Diagnoses Not on filedocumented in this encounter Care Teams Health And Physical Education Teacher Relationship Specialty Start Date End Date Jay Howell MD [address] [place] [phone] PCP - General Emergency Medicine 11/12/23 documented as of this encounter
--- OUTSIDE RECORDS SUMMARY | 2025-07-28 09:10 | XMS_ITS | Encounter Summary ---
Author Organization [employer] ([place], [place], [place], [place]) Address [address] [place] [address] Care Team Providers Care Evp Operations Name Role Phone Jay Howell MD Primary Care Provider [phone] Encounter Details Date Type Department Care Team (Late st Contact Info) Description 03/17/2021 Transcribed Document [facility] [place] Family Medicine [facility] [place] [address] ProviderJessie MD [address] [place] [address] [phone] Social History Tobacco Use Types Packs/Day Years Used Date Smoking Tobacco: Never Assessed Comments Unknown Sex and Gender Information Value Date Recorded Sex Assigned at Not on file Legal Sex Female 7:30 PM CDT Gender Identity Not on file Sexual Orientation Not on file documented as of this encounter Miscellaneous Notes * Cerner Conversion Note - Historical ProviderMD - 03/17/2021 2:00 AM CDT Desk Clerks Supervisor Details Entered On: 03/17/2021 3:32 EDT Performed [...] - 03/17/2021 3:32 EDT Electronically signed by [facility], [facility] Conversion Remedial Masseur Cerner at 02/04/2023 2:22 PM CDT documented in this encounter Plan of Treatment Not on file documented as of this encounter Visit Diagnoses Not on filedocumented in this encounter Care Teams Evp Operations Relationship Specialty Start Date End Date Jay Howell MD [address] [place] [phone] PCP - General Emergency Medicine 11/12/23 documented as of this encounter
--- OUTSIDE RECORDS SUMMARY | 2025-07-28 09:10 | XMS_ITS | Encounter Summary ---
Author Organization [employer] ([place], [place], [place], [place]) Address [address] [place] [address] Care Team Providers Care Crm Marketing Executive Name Role Phone Jay Howell MD Primary Care Provider [phone] Encounter Details Date Type Department Care Team (Late st Contact Info) Description 03/18/2021 Transcribed Document [facility] Cardiology [address] [place], [place] [phone] Jorje Bení[place] [address] [place] [address] [address] [place] [address] Social History Tobacco Use Types Packs/Day Years [...] None Author: JORJE BENÍTEZ MD-CAR Basic Information Community Health Nurse Staff: Dr. Adry Dumas Subjective NAD Health Status [...] Vitamins oral tablet 1 Tab, Oral, Daily Lee 7.5 mg-325 mg oral tablet 1 Tab, [...] (Current Encounter/Past 24 Hours) ProBNP 576 pg/mL [place] 03/17/2021 04:45 Radiology Results (Last 48 hours) [id number] -- 03/17/2021 13:59 CR Hip Uni Comp [...] on filedocumented in this encounter Care Teams Crm Marketing Executive Relationship Specialty Start Date End Date Jay Howell MD [address] [place] [phone] PCP - General Emergency Medicine 11/12/23 documented as of this encounter
--- OUTSIDE RECORDS SUMMARY | 2025-07-28 09:10 | XMS_ITS | Encounter Summary ---
Author Organization [employer] ([place], [place], [place], [place]) Address [address] [place] [address] Care Team Providers Care Intelligence Consultant Name Role Phone Jay Howell MD Primary Care Provider [phone] Encounter Details Date Type Department Care Team (Late st Contact Info) Description 03/17/2021 Transcribed Document [facility] [place] Medicine [facility] [place] [address] ProviderJessie MD [address] [place] [address] Social History Tobacco Use Types Packs/Day Years [...] filedocumented in this encounter Care Teams Intelligence Consultant Relationship Specialty Start Date End Date Jay Howell MD [address] [place] [phone] PCP - General Emergency Medicine 11/12/23 documented as of this encounter
--- OUTSIDE RECORDS SUMMARY | 2025-07-28 09:10 | XMS_ITS | Encounter Summary ---
Author Organization [employer] ([place], [place], [place], [place]) Address [address] [place] [address] Care Team Providers Care Inspector Barrel Name Role Phone Jay Howell MD Primary Care Provider [phone] Encounter Details Date Type Department Care Team (Late st Contact Info) Description 03/18/2021 Transcribed Document [facility] [place] [address] [place] [address] ProviderJessie MD [address] [place] [address] [phone] Social History Tobacco Use Types Packs/Day Years [...] filedocumented in this encounter Care Teams Inspector Barrel Relationship Specialty Start Date End Date Jay Howell MD [address] [place] [phone] PCP - General Emergency Medicine 11/12/23 documented as of this encounter
--- OUTSIDE RECORDS SUMMARY | 2025-07-28 09:10 | XMS_ITS | Encounter Summary ---
Author Organization [employer] ([place], [place], [place], [place]) Address [address] [place] [address] Care Team Providers Care Architectural Design Lecturer Name Role Phone Jay Howell MD Primary Care Provider [phone] Encounter Details Date Type Department Care Team (Late st Contact Info) Description 03/17/2021 Transcribed Document [facility] [place] [facility] [place] [address] ProviderJessie MD [address] [place], [place] [phone] Social History Tobacco Use Types Packs/Day Years [...] 03/17/2021 15:21 EDT Electronically signed by Sivan [facility] Conversion Distribution Systems Superintendent Cerner at 02/04/2023 2:16 PM CDT documented in this encounter Plan of Treatment Not on file documented as of this encounter Visit Diagnoses Not on filedocumented in this encounter Care Teams Architectural Design Lecturer Relationship Specialty Start Date End Date Jay Howell MD [address] [place] [phone] PCP - General Emergency Medicine 11/12/23 documented as of this encounter
--- OUTSIDE RECORDS SUMMARY | 2025-07-28 09:10 | XMS_ITS | Encounter Summary ---
Author Organization [employer] ([place], [place], [place], [place]) Address [address] [place] [address] Care Team Providers Care Field Logistics Coordinator Name Role Phone Jay Howell MD Primary Care Provider [phone] Encounter Details Date Type Department Care Team (Late st Contact Info) Description 08/25/2020 Transcribed Document [facility] [place] [address] [place] [address] ProviderJessie MD [address] [place] [address] Social History Tobacco Use Types Packs/Day Years Used Date Smoking Tobacco: Never Assessed Comments Unknown Sex and Gender Information Value Date Recorded Sex Assigned at Not on file Legal Sex Female 7:30 PM CDT Gender Identity Not on file Sexual Orientation Not on file documented as of this encounter Miscellaneous Notes * Cerner Conversion Note - Jessie ProviderMD - 08/25/2020 4:33 AM PACKING AND WRAPPING SUPERVISOR ED Assessment Entered On: 08/25/2020 5:16 EST Performed On: 08/25/2020 5:12 EST by Yajaira Magallon, gum puller Quick Look Assessment Level of Consciousness : Alert, Awake Affect/Behavior : Appropriate, Calm, Cooperative Orientation : Oriented x 4 Skin Temperature : Warm Skin Description : Normal for ethnicity Yajaira Magallon Rn - 08/25/2020 5:12 EST ED General-Functional Assess Information Obtained From : Patient Preferred Communication Mode : Verbal Communication Barrier : None Primary Language : Surinamese Any Spiritual/Cultural Needs or Requests : No [...] 08/25/2020 5:12 EST Electronically signed by Sivan, [facility] Conversion Wine Consultant Cerner at 02/04/2023 2:02 PM CDT documented in this encounter Plan of Treatment Not on file documented as of this encounter Visit Diagnoses Not on filedocumented in this encounter Care Teams Field Logistics Coordinator Relationship Specialty Start Date End Date Jay Howell MD [address] [place] [phone] PCP - General Emergency Medicine 11/12/23 documented as of this encounter
--- OUTSIDE RECORDS SUMMARY | 2025-07-28 09:10 | XMS_ITS | Encounter Summary ---
Author Organization [employer] ([place], [place], [place], [place]) Address [address] [place] [address] Care Team Providers Care Wardrobe Custodian Name Role Phone Jay Howell MD Primary Care Provider [phone] Encounter Details Date Type Department Care Team (Late st Contact Info) Description 03/18/2021 Transcribed Document [facility] [place] Family Medicine [address] [place] [address] ProviderJessie MD [address] [place] [address] [phone] Social History Tobacco Use Types Packs/Day Years [...] 03/18/2021 13:27 EDT Electronically signed by Sivan [facility] Conversion Coal Pulverizing Operator Cerner at 02/04/2023 2:02 PM CDT documented in this encounter Plan of Treatment Not on file documented as of this encounter Visit Diagnoses Not on filedocumented in this encounter Care Teams Wardrobe Custodian Relationship Specialty Start Date End Date Jay Howell MD [address] [place] [phone] PCP - General Emergency Medicine 11/12/23 documented as of this encounter
--- OUTSIDE RECORDS SUMMARY | 2025-07-28 09:10 | XMS_ITS | Encounter Summary ---
Author Organization [employer] ([place], [place], [place], [place]) Address [address] [place] [address] Care Team Providers Care Vessel Scrapper Helper Name Role Phone Jay Howell MD Primary Care Provider [phone] Encounter Details Date Type Department Care Team (Late st Contact Info) Description 08/24/2020 Transcribed Document [facility] [place] [address] [place] [address] ProviderJessie MD [address] [place], [place] 250521 Social History Tobacco Use Types Packs/Day Years Used Date Smoking Tobacco: Never Assessed Comments Unknown Sex and Gender Information Value Date Recorded Sex Assigned at Not on file Legal Sex Female 7:30 PM CDT Gender Identity Not on file Sexual Orientation Not on file documented as of this encounter Miscellaneous Notes * Cerner Conversion Note - Historical ProviderMD - 08/24/2020 7:06 PM CARDIOVASCULAR TECH CR Ankle Min 3 Vws LT Ordered: [...] on filedocumented in this encounter Care Teams Vessel Scrapper Helper Relationship Specialty Start Date End Date Jay Howell MD [address] [place] [phone] PCP - General Emergency Medicine 11/12/23 documented as of this encounter
--- OUTSIDE RECORDS SUMMARY | 2025-07-28 09:10 | XMS_ITS | Encounter Summary ---
Author Organization [employer] ([place], [place], [place], [place]) Address [address] [place] [address] Care Team Providers Care Sole Painter Name Role Phone Jay Howell MD Primary Care Provider [phone] Encounter Details Date Type Department Care Team (Late st Contact Info) Description 03/16/2021 Transcribed Document [facility] [place] [address] [place] [address] ProviderJessie MD [address] [place] [address] [phone] Social History Tobacco Use Types Packs/Day Years [...] ALLERGIES: Macrobid and morphine. HOME MEDICATIONS: 1. Waddell as needed. 2. Xanax as needed. 3. [...] Chart was reviewed. Time spent, 60 minutes. /[id number] Yasser Zohary, MD YZ/AQ / YGonzalo / MODL CC: Dr. Avtar Moeller Electronically signed by [facility], [facility] Conversion Wedding Photographer Cerner at 02/04/2023 2:22 PM CDT documented in this encounter Plan of Treatment Not on file documented as of this encounter Visit Diagnoses Not on filedocumented in this encounter Care Teams Sole Painter Relationship Specialty Start Date End Date Jay Howell MD [address] [place] [phone] PCP - General Emergency Medicine 11/12/23 documented as of this encounter
--- OUTSIDE RECORDS SUMMARY | 2025-07-28 09:10 | XMS_ITS | Encounter Summary ---
Author Organization [employer] ([place], [place], [place], [place]) Address [address] [place] [address] Care Team Providers Care Salvage Clerk Name Role Phone Jay Howell MD Primary Care Provider [phone] Encounter Details Date Type Department Care Team (Late st Contact Info) Description 08/25/2020 Transcribed Document [facility] [place] [address] [place] [address] ProviderJessie MD [address] [place] [address] Social History Tobacco Use Types Packs/Day Years Used Date Smoking Tobacco: Never Assessed Comments Unknown Sex and Gender Information Value Date Recorded Sex Assigned at Not on file Legal Sex Female 7:30 PM CDT Gender Identity Not on file Sexual Orientation Not on file documented as of this encounter Miscellaneous Notes * Cerner Conversion Note - Jessie ProviderMD - 08/25/2020 5:06 PM MAPPER Meds to Bed Enrollment Entered On: 08/26/2020 [...] on filedocumented in this encounter Care Teams Salvage Clerk Relationship Specialty Start Date End Date Jay Howell MD [address] [place] [phone] PCP - General Emergency Medicine 11/12/23 documented as of this encounter
--- OUTSIDE RECORDS SUMMARY | 2025-07-28 09:10 | XMS_ITS | Encounter Summary ---
Author Organization [employer] ([place], [place], [place], [place]) Address [address] [place] [address] Care Team Providers Care Entry Level Accounting Clerk Name Role Phone Jay Howell MD Primary Care Provider [phone] Encounter Details Date Type Department Care Team (Late st Contact Info) Description 08/25/2020 Transcribed Document [facility] [place] [address] [place] [address] ProviderJessie MD [address] [place] [address] Social History Tobacco Use Types Packs/Day Years Used Date Smoking Tobacco: Never Assessed Comments Unknown Sex and Gender Information Value Date Recorded Sex Assigned at Not on file Legal Sex Female 7:30 PM CDT Gender Identity Not on file Sexual Orientation Not on file documented as of this encounter Miscellaneous Notes * Cerner Conversion Note - Jessie ProviderMD - 08/25/2020 4:33 AM MANPOWER DEVELOPMENT MANAGER [place] Suicide Severity Rating Scale (C-SSRS) Entered On: 08/25/2020 5:10 EST Performed On: 08/25/2020 5:10 EST by Yajaira Magallon Rn [place] Suicide Severity Rating Scale (C-SSRS) CSSRS Past [...] filedocumented in this encounter Care Teams Entry Level Accounting Clerk Relationship Specialty Start Date End Date Jay Howell MD [address] [place] [phone] PCP - General Emergency Medicine 11/12/23 documented as of this encounter
--- OUTSIDE RECORDS SUMMARY | 2025-07-28 09:10 | XMS_ITS | Encounter Summary ---
Author Organization [id number] ([place], [place], [place], [place]) Address [address] [place] [address] Care Team Providers Care Senior Security Analyst Name Role Phone Jay Howell MD Primary Care Provider [phone] Encounter Details Date Type Department Care Team (Late st Contact Info) Description 08/25/2020 Transcribed Document [facility] [place] Family Medicine [address] [place] [address] ProviderJessie MD [address] [place] [address] Social History Tobacco Use Types Packs/Day Years Used Date Smoking Tobacco: Never Assessed Comments Unknown Sex and Gender Information Value Date Recorded Sex Assigned at Not on file Legal Sex Female 7:30 PM CDT Gender Identity Not on file Sexual Orientation Not on file documented as of this encounter Miscellaneous Notes * Cerner Conversion Note - Jessie Yuen MD - 08/25/2020 5:02 AM TEXTILE CHEMIST Pain Assessment Entered On: 08/25/2020 5:48 EST [...] filedocumented in this encounter Care Teams Senior Security Analyst Relationship Specialty Start Date End Date Jay Howell MD [address] [place] [phone] PCP - General Emergency Medicine 11/12/23 documented as of this encounter
--- OUTSIDE RECORDS SUMMARY | 2025-07-28 09:10 | XMS_ITS | Encounter Summary ---
Author Organization [employer] ([place], [place], [place], [place]) Address [address] [place] [address] Care Team Providers Care Maintenance Of Way Superintendent Name Role Phone Jay Howell MD Primary Care Provider [phone] Encounter Details Date Type Department Care Team (Late st Contact Info) Description 08/25/2020 Transcribed Document [facility] [place] [address] [place] [address] ProviderJessie MD [address] [place] [address] Social History Tobacco Use Types Packs/Day Years Used Date Smoking Tobacco: Never Assessed Comments Unknown Sex and Gender Information Value Date Recorded Sex Assigned at Not on file Legal Sex Female 7:30 PM CDT Gender Identity Not on file Sexual Orientation Not on file documented as of this encounter Miscellaneous Notes * Cerner Conversion Note - Jessie Yuen MD - 08/25/2020 5:05 AM RIVETING MACHINE OPERATOR TAPE CONTROL Patient: SKYLER MONTOYA Age: 79 years Sex: [...] 06/13/2020 8:52 EVA LAWS RN PCI w/ [place] stent to D1 Coronary artery bypass graft ([id number]) in 1992 at 52 Years. femur repair. Appendectomy (082794848). uterine suspension. Hysterectomy (588596746). back surgury. Cholecystectomy (28051338). Hip replacement (9823913516). cataract surgury. . Family history: Cardiomyopathy Child [...] EST Height Source Stated Height Entry Format [place] Height/Length, AMHARIC (ft) 5 ft Height/Length AMHARIC 3 Inch CLINICALHEIGHT 160.02 cm [place] Body Weight 52.02 kg Weight Source, ED Critical estimated dosing weight Weight Entry Format [place] Weight Nepalese lb 152 lb CLINICALWEIGHT 69.09 kg Body [...] Stain: Ordered ED Fall Risk Documented: ED quartz miner blasting: Normal Saline 1,000 mL: 75 mL/Hr, IntraVENous [...] Application, Topical, TID, 22 Gram, 0 Refill(s) [place] 7.5 mg-325 mg oral tablet: 1 Tab, [...] % 32.7 % Lymph # 1.98 x10(3)/uL Stark % 10.2 % HI Stark # 0.62 K/uL Eos % 0.0 % [...] DAVALOS MD-INT . Electronically signed by Sivan [facility] Conversion Abstract Writer Cerner at 02/04/2023 2:03 PM CDT documented in this encounter Plan of Treatment Not on file documented as of this encounter Visit Diagnoses Not on filedocumented in this encounter Care Teams Maintenance Of Way Superintendent Relationship Specialty Start Date End Date Jay Howell MD [address] [place] [phone] PCP - General Emergency Medicine 11/12/23 documented as of this encounter
--- OUTSIDE RECORDS SUMMARY | 2025-07-28 09:10 | XMS_ITS | Encounter Summary ---
Author Organization [employer] ([place], [place], [place], [place]) Address [address] [place] [address] Care Team Providers Care District Sales Leader Name Role Phone Jay Howell MD Primary Care Provider [phone] Encounter Details Date Type Department Care Team (Late st Contact Info) Description 03/17/2021 Transcribed Document [facility] [place] [facility] [place] [address] ProviderJessie MD [address] [place], [place] [address] Social History Tobacco Use Types Packs/Day Years [...] of the form. Electronically signed by Sivan, [facility] Conversion Bulk Plant Agent Cerner at 02/04/2023 2:16 PM CDT documented in this encounter Plan of Treatment Not on file documented as of this encounter Visit Diagnoses Not on filedocumented in this encounter Care Teams District Sales Leader Relationship Specialty Start Date End Date Jay Howell MD [address] [place] [phone] PCP - General Emergency Medicine 11/12/23 documented as of this encounter
--- OUTSIDE RECORDS SUMMARY | 2025-07-28 09:10 | XMS_ITS | Encounter Summary ---
Author Organization [employer] ([place], [place], [place], [place]) Address [address] [place] [address] Care Team Providers Care Recreational Specialist Name Role Phone Jay Howell MD Primary Care Provider [phone] Encounter Details Date Type Department Care Team (Late st Contact Info) Description 03/17/2021 Transcribed Document [facility] Radiology [address] [place] [address] Samantha Guzman MD [facility] [place] [address] Social History Tobacco Use Types Packs/Day Years [...] Vitamins oral tablet, 1 Tab, Oral, Daily [place] 7.5 mg-325 mg oral tablet, 1 Tab, [...] Lymph # 1.52 x10(3)/uL 03/16/2021 11:38 EDT Blair % 5.1 % 03/16/2021 11:38 EDT [place] # 0.50 K/uL 03/16/2021 11:38 EDT Eos [...] Appearance CLEAR2 03/16/2021 14:09 EDT Urine Specific Willis 1.015 03/17/2021 04:10 EDT Urine Specific Willis 1.014 03/16/2021 14:09 EDT Urine pH Dipstick [...] [1] History and Physical; MARIA ELENA DAVALOS MD-[facility] 03/16/2021 17:39 EDT [2] CR Wrist Min 3 Vws RT; Roni Guerra, Server Administrator 03/16/2021 12:13 EDT documented in this encounter Plan of Treatment Not on file documented as of this encounter Visit Diagnoses Not on filedocumented in this encounter Care Teams Recreational Specialist Relationship Specialty Start Date End Date Jay Howell MD [address] [place] [phone] PCP - General Emergency Medicine 11/12/23 documented as of this encounter
--- OUTSIDE RECORDS SUMMARY | 2025-07-28 09:10 | XMS_ITS | Encounter Summary ---
Author Organization [employer] ([place], [place], [place], [place]) Address [address] [place] [address] Care Team Providers Care Can Vacuum Tester Name Role Phone Jay Howell MD Primary Care Provider [phone] Encounter Details Date Type Department Care Team (Late st Contact Info) Description 03/17/2021 Transcribed Document [facility] [place] [facility] [place] [address] ProviderJessie MD [address] [place], [place] [address] Social History Tobacco Use Types Packs/Day Years [...] 03/17/2021 17:25 EDT Electronically signed by Sivan [facility] Conversion Breaker Tender Cerner at 02/04/2023 2:18 PM CDT documented in this encounter Plan of Treatment Not on file documented as of this encounter Visit Diagnoses Not on filedocumented in this encounter Care Teams Can Vacuum Tester Relationship Specialty Start Date End Date Jay Howell MD [address] [place] [phone] PCP - General Emergency Medicine 11/12/23 documented as of this encounter
--- OUTSIDE RECORDS SUMMARY | 2025-07-28 09:10 | XMS_ITS | Encounter Summary ---
Author Organization [employer] ([place], [place], [place], [place]) Address [address] [place] [address] Care Team Providers Care Security Assurance Specialist Name Role Phone Jay Howell MD Primary Care Provider [phone] Encounter Details Date Type Department Care Team (Late st Contact Info) Description 03/17/2021 Transcribed Document [facility] [place] [address] ProviderJessie MD [address] [place] [phone] Social History Tobacco Use Types Packs/Day Years [...] 14:06 EDT Pain Scale Intensity : 4 Sikp Sotelo RN - 03/17/2021 14:06 EDT Image 4 - Images currently included in the form version of this document have not been included in the text rendition version of the form. documented in this encounter Plan of Treatment Not on file documented as of this encounter Visit Diagnoses Not on filedocumented in this encounter Care Teams Security Assurance Specialist Relationship Specialty Start Date End Date Jay Howell MD [address] [place] [phone] PCP - General Emergency Medicine 11/12/23 documented as of this encounter
--- OUTSIDE RECORDS SUMMARY | 2025-07-28 09:10 | XMS_ITS | Encounter Summary ---
Author Organization [employer] ([place], [place], [place], [place]) Address [address] [place] [address] Care Team Providers Care Therapeutic Strategy Lead Name Role Phone Jay Howell MD Primary Care Provider [phone] Encounter Details Date Type Department Care Team (Late st Contact Info) Description 03/17/2021 Transcribed Document [facility] [place] [address] ProviderJessie MD [address] [place], [place] [address]151 Social History Tobacco Use Types Packs/Day Years [...] - 03/17/2021 12:33 EDT Electronically signed by [facility] Conversion Curtain Cutter Hand Cerner at 02/04/2023 1:58 PM CDT documented in this encounter Plan of Treatment Not on file documented as of this encounter Visit Diagnoses Not on filedocumented in this encounter Care Teams Therapeutic Strategy Lead Relationship Specialty Start Date End Date Jay Howell MD [address] [place] [phone] PCP - General Emergency Medicine 11/12/23 documented as of this encounter
--- OUTSIDE RECORDS SUMMARY | 2025-07-28 09:10 | XMS_ITS | Encounter Summary ---
Author Organization [employer] ([place], [place], [place], [place]) Address [address] [place] [address] Care Team Providers Care Ornamental Iron Erector Name Role Phone Jay Howell MD Primary Care Provider [phone] Encounter Details Date Type Department Care Team (Late st Contact Info) Description 03/17/2021 Transcribed Document [facility] [place] [address] [place] [address] ProviderJessie MD [address] [place] [address] Social History Tobacco Use Types Packs/Day Years [...] on filedocumented in this encounter Care Teams Ornamental Iron Erector Relationship Specialty Start Date End Date Jay Howell MD [address] [place] [phone] PCP - General Emergency Medicine 11/12/23 documented as of this encounter
--- OUTSIDE RECORDS SUMMARY | 2025-07-28 09:10 | XMS_ITS | Encounter Summary ---
Author Organization [employer] ([place], [place], [place], [place]) Address [address] [place] [address] Care Team Providers Care Gas Turbine Assembler Name Role Phone Jay Howell MD Primary Care Provider [phone] Encounter Details Date Type Department Care Team (Late st Contact Info) Description 03/17/2021 Transcribed Document [facility] [place] [address] ProviderJessie MD [address] [place] [phone] Social History Tobacco Use Types Packs/Day Years [...] filedocumented in this encounter Care Teams Gas Turbine Assembler Relationship Specialty Start Date End Date Jay Howell MD [address] [place] [phone] PCP - General Emergency Medicine 11/12/23 documented as of this encounter
--- OUTSIDE RECORDS SUMMARY | 2025-07-28 09:10 | XMS_ITS | Encounter Summary ---
Author Organization [employer] ([place], [place], [place], [place]) Address [address] [place] [address] Care Team Providers Care Assistant Executive Housekeeper Name Role Phone Jay Howell MD Primary Care Provider [phone] Encounter Details Date Type Department Care Team (Late st Contact Info) Description 08/25/2020 Transcribed Document [facility] [place] [facility] [place] [address] ProviderJessie MD [address] [place] [address] Social History Tobacco Use Types Packs/Day Years Used Date Smoking Tobacco: Never Assessed Comments Unknown Sex and Gender Information Value Date Recorded Sex Assigned at Not on file Legal Sex Female 7:30 PM CDT Gender Identity Not on file Sexual Orientation Not on file documented as of this encounter Miscellaneous Notes * Cerner Conversion Note - Historical ProviderMD - 08/25/2020 10:42 AM CLOTH WINDER MACHINE OPERATOR Patient: SKYLER MONTOYA Age: 79 years Sex: Female : 1940 Associated Diagnoses: None Author: KAVITHA HIDALGO MD-INF ID CONSULT DICTATED documented in this encounter Plan of Treatment Not on file documented as of this encounter Visit Diagnoses Not on filedocumented in this encounter Care Teams Assistant Executive Housekeeper Relationship Specialty Start Date End Date Jay Howell MD [address] [place] [phone] PCP - General Emergency Medicine 11/12/23 documented as of this encounter
--- OUTSIDE RECORDS SUMMARY | 2025-07-28 09:10 | XMS_ITS | Encounter Summary ---
Author Organization [employer] ([place], [place], [place], [place]) Address [address] [place] [address] Care Team Providers Care Oim Consultant Name Role Phone Jay Howell MD Primary Care Provider [phone] Encounter Details Date Type Department Care Team (Late st Contact Info) Description 03/17/2021 Transcribed Document [facility] [place] [address] [place] [address] ProviderJessie MD [address] [place] [address] Social History Tobacco Use Types Packs/Day [...] On: 03/17/2021 9:00 EDT by TASHI LIND [facility] Phone Call for Consults Consult, Additional Information : notified by physician TASHI LIND, [facility] - 03/18/2021 8:31 EDT documented in this encounter Plan of Treatment Not on file documented as of this encounter Visit Diagnoses Not on filedocumented in this encounter Care Teams Oim Consultant Relationship Specialty Start Date End Date Jay Howell MD [address] [place] [phone] PCP - General Emergency Medicine 11/12/23 documented as of this encounter
--- OUTSIDE RECORDS SUMMARY | 2025-07-28 09:10 | XMS_ITS | Encounter Summary ---
Author Organization [employer] ([place], [place], [place], [place]) Address [address] [place] [address] Care Team Providers Care Pneumatic Tube Operator Name Role Phone Jay Howell MD Primary Care Provider [phone] Encounter Details Date Type Department Care Team (Late st Contact Info) Description 03/17/2021 Transcribed Document [facility] [place] [address] [place] [address] ProviderJessie MD [address] [place] [address] Social History Tobacco Use Types Packs/Day Years [...] Insurance 1 Health Plan: MEDICARE Policy Number: [id number] Authorization Number: Insurance 2 Health Plan: AARP N Policy Number: [id number] Authorization Number: Insurance Primary Name : MEDICARE Policy Number: [id number] Authorized Service Begin Date-Primary : 03/16/2021 EDT Historical Authorization Comments-Primary : No Authorization Comments Found MARILYNN RAMÍREZ, RN-Utilization Review - 03/17/2021 12:48 EDT Electronically signed by Abel Finnegan Conversion Electrical Electronics Engineer Cerner at 02/04/2023 2:08 PM CDT documented in this encounter Plan of Treatment Not on file documented as of this encounter Visit Diagnoses Not on filedocumented in this encounter Care Teams Pneumatic Tube Operator Relationship Specialty Start Date End Date Jay Howell MD [address] [place] [phone] PCP - General Emergency Medicine 11/12/23 documented as of this encounter
--- OUTSIDE RECORDS SUMMARY | 2025-07-28 09:10 | XMS_ITS | Encounter Summary ---
Author Organization [employer] ([place], [place], [place], [place]) Address [address] [place] [address] Care Team Providers Care Interline Clerk Name Role Phone Jay Howell MD Primary Care Provider [phone] Encounter Details Date Type Department Care Team (Late st Contact Info) Description 03/17/2021 Transcribed Document [facility] Cardiology [address] [place], [place] [phone] Jorje Bení[place] [address] [place] [address] [address] [place] [address] Social History Tobacco Use Types Packs/Day Years [...] Diagnoses: None Author: JORJE BENÍTEZ MD-[facility] Basic Information Conversion Developer: Dr. Adry Dumas Chief Complaint Syncope History of Present Illness The patient is an unfortunate 80-year-old female with a known history atherosclerotic cardiovascular disease???status post coronary artery bypass grafting as well as multiple PCI's most recently 2019, hypertension, dyslipidemia, paroxysmal/persistent atrial fibrillation on chronic warfarin, history of carotid disease, anxiety, diabetes mellitus type 2, COPD, and DVT/pulmonary embolism who presented to [facility] after suffering a several episode at [...] Vitamins oral tablet 1 Tab, Oral, Daily [place] 7.5 mg-325 mg oral tablet 1 Tab, [...] Bedtime Problem list: All Problems Arthritis / 7988277 / Confirmed Atrial fibrillation with RVR / 6710342795 / Confirmed Blood clot / 231684861 / Confirmed Cataract / Confirmed Chest pain / 31448215 / Complaint of Clotting disorder / 210414991 / Confirmed COPD / 70782177 / Confirmed Coronary artery disease / 3105289541 / Confirmed Diabetes mellitus / 792152214 / Confirmed GERD - Gastro-esophageal reflux disease / 5351310184 / Confirmed Glaucoma / Confirmed Chronic anticoagulation / 166857455 / Confirmed Hx of pulmonary embolus / 734224820 / Confirmed High blood pressure / 13373425 / Confirmed History of obstructive sleep apnea / 61788831 / Confirmed Hyperlipidemia / 90161741 / Confirmed Multiple renal cysts / 664107502 / Confirmed Emphysema / 427526389 / Confirmed Apnea, sleep / 292012858 / Confirmed Stented coronary artery / 9384667206 / Confirmed Resolved: UTI - Urinary tract infection / 4916477726 Canceled: History of obstructive sleep apnea / 60666798 Histories No education data available. Social & [...] History: Active Cataract Glaucoma Coronary artery disease (3749156005) Stented coronary artery (3236702318) High blood pressure (13745089) Hyperlipidemia (83797199) COPD (86108991) GERD - Gastro-esophageal reflux disease (8126783221) Multiple renal cysts (771670100) Arthritis (5760295) Diabetes mellitus (699336148) Emphysema (997632140) Apnea, sleep (585644336) Hx of pulmonary embolus (800442519) Chronic anticoagulation (221493054) Atrial fibrillation with RVR (6014350564) Resolved UTI - Urinary tract infection (4224731636): Resolved. Family History: Cardiomyopathy Child Stroke Brother Heart attack Brother Sister Leukemia Child Cancer Father Mother Sister Coronary heart disease Child Procedure history: Cardiac Stent on 12/20/2018 at 77 Years. Comments: 03/17/2021 9:03 EVA LAWS RN HARVINDER to LAD Cardiac Stent in 2010 at 70 Years. Cardiac Stent on 01/30/2008 at 67 Years. Comments: 06/13/2020 8:52 EVA LAWS RN PCI w/ [place] stent to D1 Coronary artery bypass graft (007523989) in 1992 at 52 Years. Appendectomy (965485335). back surgury. cataract surgury. Cholecystectomy (15645147). femur repair. Hip replacement (1068428340). Hysterectomy (704606504). uterine suspension. Physical Examination VS/Measurements Vitals Signs [...] 24 Hours) Radiology Results (Last 48 hours) [id number] -- 03/16/2021 15:29 CR Hip Uni Comp [...] on filedocumented in this encounter Care Teams Interline Clerk Relationship Specialty Start Date End Date Jay Howell MD [address] [place] [phone] PCP - General Emergency Medicine 11/12/23 documented as of this encounter
--- OUTSIDE RECORDS SUMMARY | 2025-07-28 09:10 | XMS_ITS | Encounter Summary ---
Author Organization [employer] ([place], [place], [place], [place]) Address [address] [place] [address] Care Team Providers Care Medical Concierge Name Role Phone Jay Howell MD Primary Care Provider [phone] Encounter Details Date Type Department Care Team (Late st Contact Info) Description 08/25/2020 Transcribed Document [facility] [place] Family Medicine [address] [place] [address] ProviderJessie MD [address] [place] [address] Social History Tobacco Use Types Packs/Day Years Used Date Smoking Tobacco: Never Assessed Comments Unknown Sex and Gender Information Value Date Recorded Sex Assigned at Not on file Legal Sex Female 7:30 PM CDT Gender Identity Not on file Sexual Orientation Not on file documented as of this encounter Miscellaneous Notes * Cerner Conversion Note - Historical ProviderMD - 08/25/2020 6:14 PM MOSAICIST Admission History, Adult Entered On: 08/25/2020 18:21 [...] Ambulatory Legal Guardian : Spouse Support Person/Patient Load Out Worker : Yes Support Person/Pt Rep Name : Willard Contact Password : Marvin Support Person/Pt Rep Contact Information : [phone] Want Family/Rep/Phys Notified of Admit : No [...] Obtained From : Patient Primary Language : Lao Preferred Communication Mode : Verbal Communication Barrier : None 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 ROMEO PADRON RN - [...] Level : 46 or > High Risk [place] Fall Interventions : Adequate lighting, Assistive devices [...] days ago Smokeless Tobacco Status : Never ORMEO PADRON RN - 08/25/2020 18:14 EST Social [...] Source : Stated Height Entry Format : [place] Height, Feet : 5 ft(Converted to: 152 cm, 60 Inch) Height, Inches : 3 Inch(Converted to: 0 ft 3 Inch, 7.62 cm) Clinical Height : 160.02 cm Weight Source : Bed scale Weight Entry Format : [place] Clinical Dosing Weight : 69.09 kg Weight, Pounds : 152 lb Body Surface Area (BSA) : 1.72 m2 Body Mass Index : 27 kg/m2 (HI) [place] Body Weight : 52 kg ROMEO PADRON [...] ROMEO PADRON RN - 08/25/2020 18:14 EST [place] Suicide Severity Rating Scale (C-SSRS) CSSRS Past [...] 08/25/2020 18:14 EST Electronically signed by Sivan [facility] Conversion Staff Home Therapy Rn Cerner at 02/04/2023 2:14 PM CDT documented in this encounter Plan of Treatment Not on file documented as of this encounter Visit Diagnoses Not on filedocumented in this encounter Care Teams Medical Concierge Relationship Specialty Start Date End Date Jay Howell MD [address] [place] [phone] PCP - General Emergency Medicine 11/12/23 documented as of this encounter
--- OUTSIDE RECORDS SUMMARY | 2025-07-28 09:10 | XMS_ITS | Encounter Summary ---
Author Organization [employer] ([place], [place], [place]) Address [address] [place] [address] Care Team Providers Care Guest Associate Name Role Phone Jay Howell MD Primary Care Provider [phone] Encounter Details Date Type Department Care Team (Late st Contact Info) Description 03/16/2021 Transcribed Document [facility] [place] [facility] [place] [address] ProviderJessie MD [address] [place], [place] [address] Social History Tobacco Use Types Packs/Day Years [...] Ambulatory Legal Guardian : Spouse Support Person/Patient Employment Coordinator : Yes Support Person/Pt Rep Name : Willard Contact Password : Marvin Support Person/Pt Rep Contact Information : [phone] Want Family/Rep/Phys Notified of Admit : No [...] Mode : Verbal Communication Barrier : None Nutrition Services Aide Needed : No VALERIA DOAN RN - [...] Level : 46 or > High Risk [place] Fall Interventions : Adequate lighting, Assistive devices [...] Source : Stated Height Entry Format : [place] Height, Feet : 5 ft(Converted to: 152 cm, 60 Inch) Height, Inches : 3 Inch(Converted to: 0 ft 3 Inch, 7.62 cm) Clinical Height : 160.02 cm Weight Source : Standing scale Weight Entry Format : [place] Clinical Dosing Weight : 71.82 kg Weight, Pounds : 158 lb Body Surface Area (BSA) : 1.75 m2 Body Mass Index : 28 kg/m2 (HI) [place] Body Weight : 52 kg VALERIA DOAN [...] VALERIA DOAN RN - 03/16/2021 18:52 EDT [place] Suicide Severity Rating Scale (C-SSRS) CSSRS Past [...] on filedocumented in this encounter Care Teams Guest Associate Relationship Specialty Start Date End Date Jay Howell MD [address] [place] [phone] PCP - General Emergency Medicine 11/12/23 documented as of this encounter
--- OUTSIDE RECORDS SUMMARY | 2025-07-28 09:10 | XMS_ITS | Encounter Summary ---
Author Organization [employer] ([place], [place], [place], [place]) Address [address] [place] [address] Care Team Providers Care Airline Operations Agent Name Role Phone Jay Howell MD Primary Care Provider [phone] Encounter Details Date Type Department Care Team (Late st Contact Info) Description 08/25/2020 Transcribed Document [facility] [place] [address] [place] [address] ProviderJessie MD [address] [place] [address] Social History Tobacco Use Types Packs/Day Years Used Date Smoking Tobacco: Never Assessed Comments Unknown Sex and Gender Information Value Date Recorded Sex Assigned at Not on file Legal Sex Female 7:30 PM CDT Gender Identity Not on file Sexual Orientation Not on file documented as of this encounter Miscellaneous Notes * Cerner Conversion Note - Historical MD Alpa - 08/25/2020 10:53 AM DEHORNER DATE OF CONSULTATION: 08/25/2020 INFECTIOUS DISEASE CONSULTATION [...] team following as above. Discussed with them. /[id number] MD VANESSA Campa/AQ / VANESSA / MODL /[id number] CC: MD David Campa MD Electronically signed by [facility], [facility] Conversion Photo Offset Printer Cerner at 02/04/2023 2:05 PM CDT documented in this encounter Plan of Treatment Not on file documented as of this encounter Visit Diagnoses Not on filedocumented in this encounter Care Teams Airline Operations Agent Relationship Specialty Start Date End Date Jay Howell MD [address] [place] [phone] PCP - General Emergency Medicine 11/12/23 documented as of this encounter
--- OUTSIDE RECORDS SUMMARY | 2025-07-28 09:11 | XMS_ITS | Encounter Summary ---
Author Organization [employer] ([place], [place], [place], [place]) Address [address] [place] [address] Care Team Providers Care Assistance Specialist Name Role Phone Jay Howell MD Primary Care Provider [phone] Encounter Details Date Type Department Care Team (Late st Contact Info) Description 03/19/2021 Transcribed Document [facility] [place] Family Medicine [facility] [place] [address] ProviderJessie MD [address] [place], [place] [address] Social History Tobacco Use Types Packs/Day Years [...] of the form. Electronically signed by Sivan, [facility] Conversion Patient Service Rep Cerner at 02/04/2023 2:02 PM CDT documented in this encounter Plan of Treatment Not on file documented as of this encounter Visit Diagnoses Not on filedocumented in this encounter Care Teams Assistance Specialist Relationship Specialty Start Date End Date Jay Howell MD [address] [place] [phone] PCP - General Emergency Medicine 11/12/23 documented as of this encounter
--- OUTSIDE RECORDS SUMMARY | 2025-07-28 09:11 | XMS_ITS | Encounter Summary ---
Author Organization [email or web address] ([place], [place], [place], [place]) Address [address] [place] [address] Care Team Providers Care Phone Triage Specialist Name Role Phone Jay Howell MD Primary Care Provider [phone] Encounter Details Date Type Department Care Team (Late st Contact Info) Description 03/18/2021 Transcribed Document [facility] [place] Family Medicine [facility] [place] [address] ProviderJessie MD [address] [place] [address] Social History Tobacco Use Types Packs/Day Years [...] Insurance 1 Health Plan: MEDICARE Policy Number: [id number] Authorization Number: Insurance 2 Health Plan: AARP N Policy Number: [id number] Authorization Number: Insurance Primary Name : MEDICARE Policy Number: [id number] Authorized Service Begin Date-Primary : 03/16/2021 EDT Historical Authorization Comments-Primary : No Authorization Comments Found MARILYNN RAMÍREZ, RN-Utilization Review - 03/18/2021 8:56 EDT Electronically signed by Sivan [facility] Conversion Bridge Crew Member Cerner at 02/04/2023 2:20 PM CDT documented in this encounter Plan of Treatment Not on file documented as of this encounter Visit Diagnoses Not on filedocumented in this encounter Care Teams Phone Triage Specialist Relationship Specialty Start Date End Date Jay Howell MD [address] [place] [phone] PCP - General Emergency Medicine 11/12/23 documented as of this encounter
--- OUTSIDE RECORDS SUMMARY | 2025-07-28 09:11 | XMS_ITS | Encounter Summary ---
Author Organization [employer] ([place], [place], [place], [place]) Address [address] [place] [address] Care Team Providers Care Inside Contractor Sales Name Role Phone Jay Howell MD Primary Care Provider [phone] Encounter Details Date Type Department Care Team (Late st Contact Info) Description 08/26/2020 Transcribed Document [facility] [place] [address] [place] [address] ProviderJessie MD [address] [place] [address] Social History Tobacco Use Types Packs/Day Years Used Date Smoking Tobacco: Never Assessed Comments Unknown Sex and Gender Information Value Date Recorded Sex Assigned at Not on file Legal Sex Female 7:30 PM CDT Gender Identity Not on file Sexual Orientation Not on file documented as of this encounter Miscellaneous Notes * Cerner Conversion Note - Historical ProviderMD - 08/26/2020 2:49 PM MOVER Patient: SKYLER MONTOYA Age: 79 years Sex: [...] filedocumented in this encounter Care Teams Inside Contractor Sales Relationship Specialty Start Date End Date Jay Howell MD [address] [place] [phone] PCP - General Emergency Medicine 11/12/23 documented as of this encounter
--- OUTSIDE RECORDS SUMMARY | 2025-07-28 09:11 | XMS_ITS | Encounter Summary ---
Author Organization [employer] ([place], [place], [place], [place]) Address [address] [place] [address] Care Team Providers Care Cash Register Mechanic Name Role Phone Jay Howell MD Primary Care Provider [phone] Encounter Details Date Type Department Care Team (Late st Contact Info) Description 08/25/2020 Transcribed Document [facility] [place] Family Medicine [address] [place] [address] ProviderJessie MD [address] [place] [address] Social History Tobacco Use Types Packs/Day Years Used Date Smoking Tobacco: Never Assessed Comments Unknown Sex and Gender Information Value Date Recorded Sex Assigned at Not on file Legal Sex Female 7:30 PM CDT Gender Identity Not on file Sexual Orientation Not on file documented as of this encounter Miscellaneous Notes * Cerner Conversion Note - Historical ProviderMD - 08/25/2020 1:02 PM PULMONARY DISEASE SPECIALIST Patient: SKYLER MONTOYA Age: 79 years [...] Dr. Avtar Moeller Electronically signed by Sivan, [facility] Conversion Sheetmetal Worker Cerner at 02/04/2023 2:06 PM CDT documented in this encounter Plan of Treatment Not on file documented as of this encounter Visit Diagnoses Not on filedocumented in this encounter Care Teams Cash Register Mechanic Relationship Specialty Start Date End Date Jay Howell MD [address] [place] [phone] PCP - General Emergency Medicine 11/12/23 documented as of this encounter
--- OUTSIDE RECORDS SUMMARY | 2025-07-28 09:11 | XMS_ITS | Encounter Summary ---
Author Organization [employer] ([place], [place], [place], [place]) Address [address] [place] [address] Care Team Providers Care Global Process Owner Name Role Phone Jay Howell MD Primary Care Provider [phone] Encounter Details Date Type Department Care Team (Late st Contact Info) Description 08/25/2020 Transcribed Document [facility] [place] Medicine [address] [place] [address] ProviderJessie MD [address] [place] [address] Social History Tobacco Use Types Packs/Day Years Used Date Smoking Tobacco: Never Assessed Comments Unknown Sex and Gender Information Value Date Recorded Sex Assigned at Not on file Legal Sex Female 7:30 PM CDT Gender Identity Not on file Sexual Orientation Not on file documented as of this encounter Miscellaneous Notes * Cerner Conversion Note - Jessie ProviderMD - 08/25/2020 8:09 AM RPG PROGRAMMER ED Event Note Entered On: 08/25/2020 8:11 [...] 08/25/2020 8:09 EST Electronically signed by Sivan [facility] Conversion Cook Tortilla Cerner at 02/04/2023 2:06 PM CDT documented in this encounter Plan of Treatment Not on file documented as of this encounter Visit Diagnoses Not on filedocumented in this encounter Care Teams Global Process Owner Relationship Specialty Start Date End Date Jay Howell MD [address] [place] [phone] PCP - General Emergency Medicine 11/12/23 documented as of this encounter
--- OUTSIDE RECORDS SUMMARY | 2025-07-28 09:11 | XMS_ITS | Encounter Summary ---
Author Organization [employer] ([place], [place]) Address [address] [place] [address] Care Team Providers Care Senior Operator Name Role Phone Jay Howell MD Primary Care Provider [phone] Encounter Details Date Type Department Care Team (Late st Contact Info) Description 08/26/2020 Transcribed Document [facility] [place] Family Medicine [address] [place] [address] ProviderJessie MD [address] [place] [address] Social History Tobacco Use Types Packs/Day Years Used Date Smoking Tobacco: Never Assessed Comments Unknown Sex and Gender Information Value Date Recorded Sex Assigned at Not on file Legal Sex Female 7:30 PM CDT Gender Identity Not on file Sexual Orientation Not on file documented as of this encounter Miscellaneous Notes * Cerner Conversion Note - Historical ProviderMD - 08/26/2020 9:06 AM TELECOMMUNICATIONS ENGINEER Patient: SKYLER MONTOYA Age: 79 years Sex: Female : 1940 Associated Diagnoses: None Author: Cheng Jennings, Motor And Chassis Inspector Cert 79yo female with Left lower extremity [...] PharmD/MPH Candidate Kell OlsonD Electronically signed by [facility], [facility] Conversion Safety Coordinator Cerner at 02/04/2023 2:17 PM CDT documented in this encounter Plan of Treatment Not on file documented as of this encounter Visit Diagnoses Not on filedocumented in this encounter Care Teams Senior Operator Relationship Specialty Start Date End Date Jay Howell MD [address] [place] [phone] PCP - General Emergency Medicine 11/12/23 documented as of this encounter
--- OUTSIDE RECORDS SUMMARY | 2025-07-28 09:11 | XMS_ITS | Encounter Summary ---
Author Organization [employer] ([place], [place], [place], [place]) Address [address] [place] [address] Care Team Providers Care Ranch Rider Name Role Phone Jay Howell MD Primary Care Provider [phone] Encounter Details Date Type Department Care Team (Late st Contact Info) Description 08/26/2020 Transcribed Document [facility] [place] [address] [place] [address] ProviderJessie MD [address] [place], [place] [address] Social History Tobacco Use Types Packs/Day Years Used Date Smoking Tobacco: Never Assessed Comments Unknown Sex and Gender Information Value Date Recorded Sex Assigned at Not on file Legal Sex Female 7:30 PM CDT Gender Identity Not on file Sexual Orientation Not on file documented as of this encounter Miscellaneous Notes * Cerner Conversion Note - Historical ProviderMD - 08/26/2020 1:15 PM SCRUBBER SYSTEM ATTENDANT [facility] Main OR IntraOp Summary Primary Physician: KAELA HEBERT MD Finalized Date/Time: 08/28/20 09:26:05 Pt. Name: SKYLER MONTOYAO.B./Sex: 1940 Female Med Rec #: [id number] Physician: BETH DAVALOS MD-INT Financial #: [id number] Pt. Type: I Room/Bed: [facility]/ Admit/Disch: 08/25/20 05:53:00 - Institution: [facility] IntraOp Case Attendance Entry 1 Entry 2 Entry 3 Case Attendee KAELA HEBERT MD GRAFF, WAYNE B, MD-GABY INIGUEZ CRNA Role Performed Surgeon/Proceduralist, Anesthesiologist of ROLL WRAPPER/Nurse Paper Sealer First Record Time In 08/26/20 13:00:00 08/26/20 [...] Medrano, Saray Linton ST Role Performed Student Bag Machine Adjuster, First Scrub, First Time In 08/26/20 13:00:00 [...] OTHER, ATTENDEE #3 Role Performed Scrub, First Belt Loop Cutter Belt Loop Cutter Time In 08/26/20 13:00:00 08/26/20 13:00:00 08/26/20 [...] 14:32:23 Entry 10 Case Attendee Jos Ledezma, Bar Waiter/Waitress Role Performed Scrub, First Time In 08/26/20 13:50:00 Time Out 08/26/20 14:23:00 Procedure Wound Debridement Lower Extremity(Left), Aortogram Abdominal with Runoff(Left), Angioplasty Percutaneous Transluminal(Left) Other Attendee Superficial Wound Closed By: Last Modified By: Radha Medrano RN 08/26/20 14:32:23 [facility] IntraOp Case Attendance Audit 08/26/20 14:32:23 Employment And Claims Aide: AMAN Modifier: AMAN 1 <+> Time Out [...] with Runoff(Left), Angioplasty Percutaneous Transluminal(Left) 08/26/20 13:55:12 Employment And Claims Aide: EANAPIER Modifier: EANAPIER 6 <+> Time Out 6 <*> Procedure Wound Debridement Lower Extremity(Left), Aortogram Abdominal with Runoff(Left), Angioplasty Percutaneous Transluminal(Left) 7 <+> Time Out 7 <*> Procedure Wound Debridement Lower Extremity(Left), Aortogram Abdominal with Runoff(Left), Angioplasty Percutaneous Transluminal(Left) <+> 10 Case Attendee <+> 10 Role Performed <+> 10 Time In <+> 10 Procedure 08/26/20 13:49:11 Employment And Claims Aide: EANAPIER Modifier: EANAPIER 1 <*> Procedure Wound [...] Extremity(Left), Aortogram Abdominal with Runoff(Left) 08/26/20 13:47:56 Employment And Claims Aide: EANAPIER Modifier: EANAPIER 1 <*> Procedure Wound [...] Procedure Wound Debridement Lower Extremity(Left) 08/26/20 13:38:05 Employment And Claims Aide: EANAPIER Modifier: EANAPIER <+> 1 Time In [...] 9 <*> Procedure Wound Debridement Lower Extremity(Left) [facility] IntraOp Case Times Entry 1 Patient In Room Time 08/26/20 13:00:00 Out Room Time 08/26/20 14:23:00 Anesthesia Start Time 08/26/20 13:00:00 Stop Time 08/26/20 14:23:00 Surgery / Procedure Times Start Time 08/26/20 13:15:00 Stop Time 08/26/20 14:10:00 Last Modified By: Radha Medrano RN 08/26/20 14:22:56 [facility] IntraOp Case Times Audit 08/26/20 14:22:56 Employment And Claims Aide: EANAPIER Modifier: EANAPIER <+> 1 Out Room Time <+> 1 Stop Time 08/26/20 14:14:55 Employment And Claims Aide: EANAPIER Modifier: EANAPIER <+> 1 Stop Time [facility] IntraOp Cautery Entry 1 ESU Identification Cautery Type Monopolar ESU ID Number [id number] ID Type Hospital Number Cautery Settings Cut Setting 30 Coag Setting 30 ESU Grounding Pad Ground Pad Type Adult Grounding Pad Site Right Upper Abdomen Grounding Pad Radha Medrano RN Applied By Grounding Pad Site Warm, dry and intact Skin Condition Before Cautery Grounding Pad Site Unchanged Skin Condition After Cautery Last Modified By: Radha Medrano RN 08/26/20 13:46:51 [facility] IntraOp Communication Entry 1 Communication To Other Comment HISSU REPORT Communication By Radha Medrano RN Date and Time 08/26/20 14:17:00 Last Modified By: Radha Medrano RN 08/26/20 14:16:35 [facility] IntraOp Counts Verification Entry 1 Procedure Wound Debridement Lower Extremity(Left), Aortogram Abdominal with Runoff(Left), Angioplasty Percutaneous Transluminal(Left) Count Info Count Type Sponge, Sharps, Miscellaneous Counts Verification Baseline/pre-procedure Sequence Count Results Not Applicable Counts Performed By Count Performed By LUNA RIGGINS (Scrub) Count Performed By Radha Medrano RN (RN) Last Modified By: Radha Medrano RN 08/26/20 13:49:13 [facility] IntraOp Counts Verification Audit 08/26/20 13:49:13 Employment And Claims Aide: EANAPIER Modifier: EANAPIER 1 <*> Procedure Wound Debridement Lower Extremity(Left), Aortogram Abdominal with Runoff(Left) 08/26/20 13:47:59 Employment And Claims Aide: EANAPIER Modifier: EANAPIER 1 <*> Procedure Wound Debridement Lower Extremity(Left) [facility] IntraOp Counts Final Entry 1 Procedure Wound Debridement Lower Extremity(Left), Aortogram Abdominal with Runoff(Left), Angioplasty Percutaneous Transluminal(Left) Final Count Info Count Type Sponge, Sharps, Miscellaneous Counts Verification Skin Closure/end of Sequence procedure Count Results Correct, surgeon notified Counts Performed By Count Performed By Jos Ledezma Surgical (Scrub) Toy Mechanic Count Performed By Radha Medrano RN (RN) Last Modified By: Radha Medrano RN 08/26/20 14:24:36 [facility] IntraOp Counts Final Audit 08/26/20 14:24:36 Employment And Claims Aide: LOVELYPIOMAYRA Modifier: EANAPIER 1 <*> Procedure Wound Debridement Lower Extremity(Left), Aortogram Abdominal with Runoff(Left), Angioplasty Percutaneous Transluminal(Left) 1 <+> Count Results 1 <+> Count Performed By (Scrub) 1 <+> Count Performed By (RN) 08/26/20 13:49:14 Employment And Claims Aide: LOVELYPIOMAYRA Modifier: EANAPIER 1 <*> Procedure Wound Debridement Lower Extremity(Left), Aortogram Abdominal with Runoff(Left) 08/26/20 13:48:01 Employment And Claims Aide: LOVELYPIOMAYRA Modifier: EANAPIER 1 <*> Procedure Wound Debridement Lower Extremity(Left) [facility] IntraOp Cultures and Spec Summary Entry 1 Cultrures and Specimens Specimen Ordered: Yes Test(s) Culture(s)/Microbiology Requested/Final Disposition Last Modified By: Radha Medrano RN 08/26/20 13:56:41 General Comments: LEFT ANTERIOR LEG WOUND. [facility] IntraOp Departure from OR Entry 1 Integumentary Assessment Integumentary WDL Assessment WDL Transfer/Handoff Transfer to PACU Phase II Handoff Method Phone call Post-op Transport Stretcher/Gurney Via Patient Transport Radha Medrano RN Accompanied by Transfer/Handoff PT TRANSPORTED TO [facility], PT STABLE Last Modified By: Radha Medrano RN 08/26/20 14:24:24 General Comments: [id number] LALA RNPHYSICIAN LOCUMS URGENT CARE [facility] IntraOp Dressing and Packing Entry 1 Type Dressing Wound Dressing Item Skin Closure Glue Applied By KAELA HEBERT MD Last Modified By: Radha Medrano RN 08/26/20 13:45:13 [facility] IntraOp Fire Risk Assessment Entry [...] Modified By: Radha Medrano RN 08/26/20 13:40:08 [facility] IntraOp General Case Wet Process Technician 1 Case Information OR OR 20 [facility] Case Level 1 Room Verified Yes Wound Class II - Clean-Contaminated Specialty SN Endovascular Anesthesia Type MAC ASA Class 4 Diagnosis Preop Diagnosis LEFT LEG WOUND Postop Same As Preop No Postop Diagnosis SEE MD NOTE Last Modified By: Radha Medrano RN 08/26/20 13:44:53 [facility] IntraOp Implant Log Entry 1 Type Implant (Synthetic) Implant Log Implant DEVICE CLSR ANGIO-SEAL Identification [facility] [id number] Description Implant Quantity 1 Implant Site RIGHT Implant [id number] Identification Lot Number Implant [facility] Med:Cardiac Surg Identification Neon Glass Blower Name: Implant [id number] Identification Catalog Number Implant Has an Yes Expiration Date Implant Expiration 06/16/21 Date Tissue Implant Last Modified By: Radha Medrano RN 08/26/20 14:23:44 [facility] IntraOp Intraoperative Assessment Entry 1 [...] Modified By: Radha Medrano RN 08/26/20 13:44:22 [facility] IntraOp Intraoperative Equipment Entry 1 Type Monitoring Equipment Intraop Monitoring Electrocardiogram Three lead placement (ECG) Electrode Placement Blood Pressure Non-Invasive BP Device Source Blood Pressure Arm, right upper Location Pulse Oximeter Hand, left Probe Site Antiembolic Devices Scopes Photo/Video Documentation Last Modified By: Radha Medrano RN 08/26/20 13:43:20 [facility] IntraOp Medication Admin Entry 1 Entry 2 Entry 3 Medication/Irrigant PRM-LB VISIPAQUE 320MG lidocaine 1% 10mg/1ml COMBO heparin in NS [id number] 50ml vial - [id number] flush 2000units/1000ml --[id number] Combo Med List Time Administered Route of Administration Dose Dose 320 2000 Unit of Measure mg units Volume Administered By KAELA HEBERT MD MENES, KEITH, MD MENES, KEITH, MD Procedure Irrigation Irrigant Volume In Irrigant Volume Out Last Modified By: Radha Medrano RN Napier, Elizabeth A, RN Napier, Elizabeth A, RN 08/26/20 13:42:30 08/26/20 13:42:30 08/26/20 13:42:30 [facility] IntraOp Patient Positioning Entry 1 [...] Modified By: Radha Medrano RN 08/26/20 13:49:13 [facility] IntraOp Patient Positioning Audit 08/26/20 13:49:13 Employment And Claims Aide: EANAPIER Modifier: EANAPIER 1 <*> Procedure Wound Debridement Lower Extremity(Left), Aortogram Abdominal with Runoff(Left) 08/26/20 13:48:00 Employment And Claims Aide: EANAPIER Modifier: EANAPIER 1 <*> Procedure Wound Debridement Lower Extremity(Left) [facility] IntraOp Sign In Entry 1 [...] Modified By: Radha Medrano RN 08/26/20 13:31:46 [facility] IntraOp Sign Out Entry 1 [...] Modified By: Radha Medrano RN 08/26/20 14:32:44 [facility] IntraOp Sign Out Audit 08/26/20 14:32:44 Employment And Claims Aide: AMAN Modifier: AMAN 1 <*> Specimen Labeled Correctly N/A 1 <+> RN Sign Out Signature 1 <+> RN Sign Out Signature Date/Time [facility] IntraOp Skin Prep Entry 1 Procedure Wound Debridement Lower Extremity(Left), Aortogram Abdominal with Runoff(Left), Angioplasty Percutaneous Transluminal(Left) Prescribed N/A Pre-Surgical Prep Completed Prep Area BILATERAL GROINS, LEFT LOWER LEG Intraop Prep Prep Agents Chloraprep Prep by Radha Medrano RN Hair Removal Methods No hair removal performed Last Modified By: Radha Medrano RN 08/26/20 13:49:14 [facility] IntraOp Skin Prep Audit 08/26/20 13:49:14 Employment And Claims Aide: AMAN Modifier: REGINANAPIER 1 <*> Procedure Wound Debridement Lower Extremity(Left), Aortogram Abdominal with Runoff(Left) 08/26/20 13:48:00 Employment And Claims Aide: AMAN Modifier: LOVELYPIER 1 <*> Procedure Wound Debridement Lower Extremity(Left) [facility] IntraOp Surgical Procedures Entry 1 [...] RN 08/26/20 14:22:50 08/26/20 14:22:50 08/26/20 14:22:50 [facility] IntraOp Surgical Procedures Audit 08/26/20 14:22:50 Employment And Claims Aide: AMAN Modifier: REGINANAPIER 1 <*> Procedure Wound Debridement Lower Extremity 1 <+> Stop <+> 2 Stop <+> 3 Stop 08/26/20 13:56:00 Employment And Claims Aide: LOVELYPIOMAYRA Modifier: EANAPIER 1 <*> Procedure Wound Debridement Lower Extremity 1 <*> Additional Procedure Description (LT LOWER EXTREMTIY WOUND DEBRIDEMENT WITH WOUND VAC) 08/26/20 13:48:53 Employment And Claims Aide: EANAPIER Modifier: EANAPIER <+> 3 Procedure <+> 3 Primary Procedure <+> 3 Modifiers <+> 3 Primary Surgeon <+> 3 Specialty <+> 3 Start <+> 3 Wound Class <+> 3 Anesthesia Type 08/26/20 13:47:52 Employment And Claims Aide: EANAPIER Modifier: EANAPIER <+> 2 Procedure <+> 2 Primary Procedure <+> 2 Modifiers <+> 2 Primary Surgeon <+> 2 Specialty <+> 2 Start <+> 2 Wound Class <+> 2 Anesthesia Type 08/26/20 13:43:42 Employment And Claims Aide: EANAPIER Modifier: EANAPIER 1 <*> Procedure Wound Debridement Lower Extremity 1 <+> Specialty 1 <*> Anesthesia Type General [facility] IntraOP Time Out Entry 1 [...] Modified By: Radha Medrano RN 08/26/20 13:49:14 [facility] IntraOP Time Out Audit 08/26/20 13:49:14 Employment And Claims Aide: AMAN Modifier: EANAPIER 1 <*> Procedure to be Performed Wound Debridement Lower Extremity(Left), Aortogram Abdominal with Runoff(Left) 08/26/20 13:48:01 Employment And Claims Aide: REGINANAPIER Modifier: EANAPIER 1 <*> Procedure to be Performed Wound Debridement Lower Extremity(Left) [facility] IntraOp X-Ray and Images Entry [...] WATTSDR Correct Billing Electronically signed by Sivan [facility] Conversion Oracle Bpm Consultant Cerner at 02/04/2023 2:03 PM CDT documented in this encounter Plan of Treatment Not on file documented as of this encounter Visit Diagnoses Not on filedocumented in this encounter Care Teams Ranch Rider Relationship Specialty Start Date End Date Jay Howell MD [address] [place] [phone] PCP - General Emergency Medicine 11/12/23 documented as of this encounter
--- OUTSIDE RECORDS SUMMARY | 2025-07-28 09:11 | XMS_ITS | Encounter Summary ---
Author Organization [employer] ([place], [place], [place], [place]) Address [address] [place] [address] Care Team Providers Care Building Insulation Installer Name Role Phone Jay Howell MD Primary Care Provider [phone] Encounter Details Date Type Department Care Team (Late st Contact Info) Description 08/26/2020 Transcribed Document [facility] [place] [address] [place] [address] ProviderJessie MD [address] [place], [place] [id number] Social History Tobacco Use Types Packs/Day Years Used Date Smoking Tobacco: Never Assessed Comments Unknown Sex and Gender Information Value Date Recorded Sex Assigned at Not on file Legal Sex Female 7:30 PM CDT Gender Identity Not on file Sexual Orientation Not on file documented as of this encounter Miscellaneous Notes * Cerner Conversion Note - Historical ProviderMD - 08/26/2020 2:41 PM IMPORT CLERK Event Note Entered On: 08/26/2020 14:42 EST [...] - 08/26/2020 18:03 EST Electronically signed by [facility], [facility] Conversion Silver Brazer Cerner at 02/04/2023 2:15 PM CDT documented in this encounter Plan of Treatment Not on file documented as of this encounter Visit Diagnoses Not on filedocumented in this encounter Care Teams Building Insulation Installer Relationship Specialty Start Date End Date Jay Howell MD [address] [place] [phone] PCP - General Emergency Medicine 11/12/23 documented as of this encounter
--- OUTSIDE RECORDS SUMMARY | 2025-07-28 09:11 | XMS_ITS | Encounter Summary ---
Author Organization [employer] ([place], [place], [place], [place]) Address [address] [place] [address] Care Team Providers Care Old Coin Dealer Name Role Phone Jay Howell MD Primary Care Provider [phone] Encounter Details Date Type Department Care Team (Late st Contact Info) Description 03/19/2021 Transcribed Document [facility] [place] [facility] [place] [address] ProviderJessie MD [address] [place], [place] [phone] Social History Tobacco Use Types Packs/Day Years [...] these instructions at home: Medicines ??? Take jlgu-wzr-wuiebrm and prescription medicines only as told by [...] provider. Document Revised: 01/25/2020 Document Reviewed: 08/22/2019 [employer] Patient Education ? 2019 [employer] Orthopedics Cast or Splint Care, Adult [...] activities are safe for you. ??? Take dhjo-xqb-ruqwown and prescription medicines only as told by [...] provider. Document Revised: 07/31/2018 Document Reviewed: 03/26/2017 [employer] Patient Education ? 2020 [employer]. documented in this encounter Plan of Treatment Not on file documented as of this encounter Visit Diagnoses Not on filedocumented in this encounter Care Teams Old Coin Dealer Relationship Specialty Start Date End Date Jay Howell MD [address] [place] [phone] PCP - General Emergency Medicine 11/12/23 documented as of this encounter
--- OUTSIDE RECORDS SUMMARY | 2025-07-28 09:11 | XMS_ITS | Encounter Summary ---
Author Organization [employer] ([place], [place], [place], [place]) Address [address] [place] [address] Care Team Providers Care Project Lead Name Role Phone Jay Howell MD Primary Care Provider [phone] Encounter Details Date Type Department Care Team (Late st Contact Info) Description 03/18/2021 Transcribed Document [facility] [place] [facility] [place] [address] ProviderJessie MD [address] [place] [phone] Social History Tobacco Use Types Packs/Day Years [...] 03/18/2021 17:56 EDT Electronically signed by Sivan [facility] Conversion [employer] Social Studies Tutor Cerner at 02/04/2023 2:21 PM CDT documented in this encounter Plan of Treatment Not on file documented as of this encounter Visit Diagnoses Not on filedocumented in this encounter Care Teams Project Lead Relationship Specialty Start Date End Date Jay Howell MD [address] [place] [phone] PCP - General Emergency Medicine 11/12/23 documented as of this encounter
--- OUTSIDE RECORDS SUMMARY | 2025-07-28 09:11 | XMS_ITS | Encounter Summary ---
Author Organization [employer] ([place], [place], [place], [place]) Address [address] [place] [address] Care Team Providers Care Insurance Office Supervisor Name Role Phone Jay Howell MD Primary Care Provider [phone] Encounter Details Date Type Department Care Team (Late st Contact Info) Description 08/26/2020 Transcribed Document [facility] [place] [address] [place] [address] ProviderJessie MD [address] [place], [place] [phone] Social History Tobacco Use Types Packs/Day Years Used Date Smoking Tobacco: Never Assessed Comments Unknown Sex and Gender Information Value Date Recorded Sex Assigned at Not on file Legal Sex Female 7:30 PM CDT Gender Identity Not on file Sexual Orientation Not on file documented as of this encounter Miscellaneous Notes * Cerner Conversion Note - Historical ProviderMD - 08/26/2020 11:38 AM TRUCK SWITCHER Event Note Entered On: 08/26/2020 11:38 EST Performed On: 08/26/2020 11:38 EST by CARLTON GUTIERREZ Event Note Event Date/Time : 08/26/2020 11:15 EST Event Location : [place] Event Details : Other: Description of Event : 1115: [facility] PT 25 INR 2.4 CARLTON GUTIERREZ - 08/26/2020 11:38 EST Electronically signed by Sivan [facility] Conversion Apartment Community Manager Cerner at 02/04/2023 2:15 PM CDT documented in this encounter Plan of Treatment Not on file documented as of this encounter Visit Diagnoses Not on filedocumented in this encounter Care Teams Insurance Office Supervisor Relationship Specialty Start Date End Date Jay Howell MD [address] [place] [phone] PCP - General Emergency Medicine 11/12/23 documented as of this encounter
--- OUTSIDE RECORDS SUMMARY | 2025-07-28 09:11 | XMS_ITS | Encounter Summary ---
Author Organization [employer] ([place], [place], [place], [place]) Address [address] [place] [address] Care Team Providers Care Production Support Supervisor Name Role Phone Jay Howell MD Primary Care Provider [phone] Encounter Details Date Type Department Care Team (Late st Contact Info) Description 08/26/2020 Transcribed Document [facility] [place] [address] [place] [address] ProviderJessie MD [address] [place] [address] Social History Tobacco Use Types Packs/Day Years Used Date Smoking Tobacco: Never Assessed Comments Unknown Sex and Gender Information Value Date Recorded Sex Assigned at Not on file Legal Sex Female 7:30 PM CDT Gender Identity Not on file Sexual Orientation Not on file documented as of this encounter Miscellaneous Notes * Cerner Conversion Note - Historical ProviderMD - 08/26/2020 2:16 PM PLAYGROUND DIRECTOR Initial Discharge Planning Entered On: 08/26/2020 14:19 EST Performed On: 08/26/2020 14:16 EST by KAVITA PELLETIER RN-Java Web Engineer Initial Assessment I Previously Documented Living Environment [...] Listed? : Yes Medical Durable Power of Plant Pathologist Name : No KAVITA PELLETIER RN-Java Web Engineer - 08/26/2020 14:16 EST Initial Assessment II Sensory and Motor Deficits : Weakness Current Home Treatments and Equipment : CPAP, Walker KAVITA PELLETIER RN-Java Web Engineer - 08/26/2020 14:16 EST Narrative Note Narrative [...] upon POC. CM will follow. KAVITA PELLETIER RN-Java Web Engineer - 08/26/2020 14:16 EST documented in this encounter Plan of Treatment Not on file documented as of this encounter Visit Diagnoses Not on filedocumented in this encounter Care Teams Production Support Supervisor Relationship Specialty Start Date End Date Jay Howell MD [address] [place] [phone] PCP - General Emergency Medicine 11/12/23 documented as of this encounter
--- OUTSIDE RECORDS SUMMARY | 2025-07-28 09:11 | XMS_ITS | Encounter Summary ---
Author Organization [employer] ([place], [place], [place], [place]) Address [address] [place] [address] Care Team Providers Care Mini Baccarat Dealer Name Role Phone Jay Howell MD Primary Care Provider [phone] Encounter Details Date Type Department Care Team (Late st Contact Info) Description 08/26/2020 Transcribed Document [facility] [place] [address] [place] [address] ProviderJessie MD [address] [place] [address] Social History Tobacco Use Types Packs/Day Years Used Date Smoking Tobacco: Never Assessed Comments Unknown Sex and Gender Information Value Date Recorded Sex Assigned at Not on file Legal Sex Female 7:30 PM CDT Gender Identity Not on file Sexual Orientation Not on file documented as of this encounter Miscellaneous Notes * Cerner Conversion Note - Historical ProviderMD - 08/26/2020 2:23 PM PLASTIC FIXTURE BUILDER Patient: SKYLER MONTOYA Age: 79 Years Sex: [...] LEFT PT occlusion - distal *Operation RIGHT INSTRUMENT REPAIR SPECIALIST access - ultrasound guided Aortogram with LEFT lower extremity run-off LEFT PT angioplasty (2.5-6l086py Nanocross) LEFT peroneal angioplasty ([id number] Nanocross) RIGHT INSTRUMENT REPAIR SPECIALIST closure (Angioseal) LEFT leg debridement *Surgeon Elie Verde MD Anesthesia MAC *Estimated Blood Loss Minimal *Findings By aortogram, the distal abdominal aorta is patent. On the RIGHT, the common iliac (NILAY), internal iliac (IIA) and external iliac (EIA) arteries are patent. Beyond this point, the vasculature was not specifically interrogated. On the LEFT, the NILAY, IIA and EIA are patent. The common femoral (INSTRUMENT REPAIR SPECIALIST) artery is patent dividing into the profunda [...] The patient was placed supine on the rn lab table and the BILATERAL groins and LEFT leg were prepped and draped in usual sterile fashion. The patient was identified as SKYLER MONTOYA by the entire procedural team as per time out protocol. Next, local anesthetic was infiltrated into the groin region. The RIGHT INSTRUMENT REPAIR SPECIALIST was accessed in retrograde fashion under ultrasound guidance using micropuncture technique and a 5Fr sheath was installed. Next, an Omni flush catheter was advanced into the infrarenal aorta and an aortogram was obtained; see above. Next, the catheter and 035/260 glide advantage wire (GAW) were directed up-and-over into the LEFT INSTRUMENT REPAIR SPECIALIST and additional run-off views were obtained in station; see above. Next, the sheath was upsized to a 6Fr/45cm destination sheath which was positioned in the LEFT INSTRUMENT REPAIR SPECIALIST. The patient was then systemically heparinized. Next, [...] 13:15:00 (08/26/20 13:48:53) Electronically signed by Sivan [facility] Conversion Watch Engineer Cerner at 02/04/2023 2:09 PM CDT documented in this encounter Plan of Treatment Not on file documented as of this encounter Visit Diagnoses Not on filedocumented in this encounter Care Teams Mini Baccarat Dealer Relationship Specialty Start Date End Date Jay Howell MD [address] [place] [phone] PCP - General Emergency Medicine 11/12/23 documented as of this encounter
--- OUTSIDE RECORDS SUMMARY | 2025-07-28 09:11 | XMS_ITS | Encounter Summary ---
Author Organization [employer] ([place], [place], [place], [place]) Address [address] [place] [address] Care Team Providers Care Surface Mount Technology Operator Name Role Phone Jay Howell MD Primary Care Provider [phone] Encounter Details Date Type Department Care Team (Late st Contact Info) Description 03/18/2021 Transcribed Document [facility] [place] [facility] [place] [address] ProviderJessie MD [address] [place], [place] [address] Social History Tobacco Use Types Packs/Day Years Used Date Smoking Tobacco: Never Assessed Comments Unknown Sex and Gender Information Value Date Recorded Sex Assigned at Not on file Legal Sex Female 7:30 PM CDT Gender Identity Not on file Sexual Orientation Not on file documented as of this encounter Miscellaneous Notes * Cerner Conversion Note - Jessie ProviderMD - 03/18/2021 2:00 AM CDT Distribution Manager Details Entered On: 03/18/2021 7:00 EDT [...] Non Emp RN - 03/18/2021 7:00 EDT documented in this encounter Plan of Treatment Not on file documented as of this encounter Visit Diagnoses Not on filedocumented in this encounter Care Teams Surface Mount Technology Operator Relationship Specialty Start Date End Date Jay Howell MD [address] [place] [phone] PCP - General Emergency Medicine 11/12/23 documented as of this encounter
--- OUTSIDE RECORDS SUMMARY | 2025-07-28 09:11 | XMS_ITS | Encounter Summary ---
Author Organization [employer] ([place], [place], [place], [place]) Address [address] [place] [address] Care Team Providers Care Cashier Ticket Selling Name Role Phone Jay Howell MD Primary Care Provider [phone] Encounter Details Date Type Department Care Team (Late st Contact Info) Description 08/26/2020 Transcribed Document [facility] [place] [address] [place] [address] ProviderJessie MD [address] [place] [address] Social History Tobacco Use Types Packs/Day Years Used Date Smoking Tobacco: Never Assessed Comments Unknown Sex and Gender Information Value Date Recorded Sex Assigned at Not on file Legal Sex Female 7:30 PM CDT Gender Identity Not on file Sexual Orientation Not on file documented as of this encounter Miscellaneous Notes * Cerner Conversion Note - Jessie Yuen MD - 08/26/2020 8:24 AM SUPERVISOR SEWING DEPARTMENT Patient: SKYLER MONTOYA Age: 79 years Sex: [...] Level 8.4 mg/dL 08/26/2020 04:23 MICRO: ACC: [id number] ORDER: Culture Wound and Stain DATE: 08/25/2020 05:00 SOURCE: Wound SITE: Leg Lower L Reports Pre 08/26/2020 06:23 No growth GS 08/25/2020 07:26 No organisms seen. Few White Blood Cells Rare epithelial cells == ACC: [id number] ORDER: Culture Blood DATE: 08/25/2020 05:01 SOURCE: Blood SITE: Reports Pre 08/26/2020 06:01 No growth at 1 day. Pre 08/25/2020 23:02 Culture less than 24 Hrs old == ACC: [id number] ORDER: Culture Blood DATE: 08/25/2020 05:01 SOURCE: Blood SITE: Reports Pre 08/26/2020 06:01 No growth at 1 day. Pre 08/25/2020 23:02 Culture less than 24 Hrs old == Radiology Results (Last 48 hours) [id number] -- 08/25/2020 05:53 CR Chest 1 Vw [...] Discussed with them. Electronically signed by [facility], [facility] Conversion Numerical Analysis Group Manager Cerner at 02/04/2023 2:09 PM CDT documented in this encounter Plan of Treatment Not on file documented as of this encounter Visit Diagnoses Not on filedocumented in this encounter Care Teams Cashier Ticket Selling Relationship Specialty Start Date End Date Jay Howell MD [address] [place] [phone] PCP - General Emergency Medicine 11/12/23 documented as of this encounter
--- OUTSIDE RECORDS SUMMARY | 2025-07-28 09:11 | XMS_ITS | Encounter Summary ---
Author Organization [employer] ([place], [place], [place], [place]) Address [address] [place] [address] Care Team Providers Care Automotive Maintenance Technician Name Role Phone Jay Howell MD Primary Care Provider [phone] Encounter Details Date Type Department Care Team (Late st Contact Info) Description 08/26/2020 Transcribed Document [facility] [place] [address] [place] [address] ProviderJessie MD [address] [place], [place] [address] Social History Tobacco Use Types Packs/Day Years Used Date Smoking Tobacco: Never Assessed Comments Unknown Sex and Gender Information Value Date Recorded Sex Assigned at Not on file Legal Sex Female 7:30 PM CDT Gender Identity Not on file Sexual Orientation Not on file documented as of this encounter Miscellaneous Notes * Cerner Conversion Note - Historical ProviderMD - 08/26/2020 2:00 AM LAST IRONER Harness Tier Details Entered On: 08/26/2020 2:00 EST Performed On: 08/26/2020 2:00 EST by Kervin Kulkarni RN Order Details Isolation Precautions Order Detail : Standard Precautions Order Detail : N/A IV Order Detail : 1 Oxygen Order Detail : 0 Lift/Transfer : Independent Room Service : Not Appropriate Patient Needs Meds Crushed/Liquid : No Kervin Kulkarni RN - 08/26/2020 1:56 EST Electronically signed by Sivan [facility] Conversion Numerical Control Tool Programmer Cerner at 02/04/2023 2:10 PM CDT documented in this encounter Plan of Treatment Not on file documented as of this encounter Visit Diagnoses Not on filedocumented in this encounter Care Teams Automotive Maintenance Technician Relationship Specialty Start Date End Date Jay Howell MD [address] [place] [phone] PCP - General Emergency Medicine 11/12/23 documented as of this encounter
--- OUTSIDE RECORDS SUMMARY | 2025-07-28 09:11 | XMS_ITS | Encounter Summary ---
Author Organization [employer] ([place], [place], [place], [place]) Address [address] [place] [address] Care Team Providers Care Communication Center Operator Name Role Phone Jay Howell MD Primary Care Provider [phone] Encounter Details Date Type Department Care Team (Late st Contact Info) Description 03/18/2021 Transcribed Document [facility] [place] [place] [address] ProviderJessie MD [address] [place], [place] [address] Social History Tobacco Use Types Packs/Day Years [...] Lymph # 1.66 x10(3)/uL 03/18/2021 05:19 EDT [place]ajo % 11.4 % (High) 03/18/2021 05:19 EDT [place] # 0.75 K/uL 03/18/2021 05:19 EDT Eos [...] filedocumented in this encounter Care Teams Communication Center Operator Relationship Specialty Start Date End Date Jay Howell MD [address] [place] [phone] PCP - General Emergency Medicine 11/12/23 documented as of this encounter
--- OUTSIDE RECORDS SUMMARY | 2025-07-28 09:11 | XMS_ITS | Encounter Summary ---
Author Organization [employer] ([place], [place], [place], [place]) Address [address] [place] [address] Care Team Providers Care Urgent Care Nurse Practitioner Name Role Phone Jay Howell MD Primary Care Provider [phone] Encounter Details Date Type Department Care Team (Late st Contact Info) Description 03/18/2021 Transcribed Document [facility] [place] [facility] [place] [address] ProviderJessie MD [address] [place], [place] [address] Social History Tobacco Use Types Packs/Day Years [...] on filedocumented in this encounter Care Teams Urgent Care Nurse Practitioner Relationship Specialty Start Date End Date Jay Howell MD [address] [place] [phone] PCP - General Emergency Medicine 11/12/23 documented as of this encounter
--- OUTSIDE RECORDS SUMMARY | 2025-07-28 09:11 | XMS_ITS | Encounter Summary ---
Author Organization [employer] ([place], [place], [place], [place]) Address [address] [place] [address] Care Team Providers Care Medical Center Director Name Role Phone Jay Howell MD Primary Care Provider [phone] Encounter Details Date Type Department Care Team (Late st Contact Info) Description 08/25/2020 Transcribed Document [facility] [place] [address] [place] [address] ProviderJessie MD [address] [place] [address] Social History Tobacco Use Types Packs/Day Years Used Date Smoking Tobacco: Never Assessed Comments Unknown Sex and Gender Information Value Date Recorded Sex Assigned at Not on file Legal Sex Female 7:30 PM CDT Gender Identity Not on file Sexual Orientation Not on file documented as of this encounter Miscellaneous Notes * Cerner Conversion Note - Jessie Yuen MD - 08/25/2020 9:27 AM NEWS COMMENTATOR Patient: SKYLER MONTOYA Age: 79 years Sex: [...] changes. Rx will follow, [place] PharmD,BCPS,BCCCP #[id number] Electronically signed by Sivan, [facility] Conversion Dry Paste Supervisor Cerner at 02/04/2023 2:13 PM CDT documented in this encounter Plan of Treatment Not on file documented as of this encounter Visit Diagnoses Not on filedocumented in this encounter Care Teams Medical Center Director Relationship Specialty Start Date End Date Jay Howell MD [address] [place] [phone] PCP - General Emergency Medicine 11/12/23 documented as of this encounter
--- OUTSIDE RECORDS SUMMARY | 2025-07-28 09:11 | XMS_ITS | Encounter Summary ---
Author Organization [employer] ([place], [place], [place], [place]) Address [address] [place] [address] Care Team Providers Care Molded Grid And Parts Inspector Name Role Phone Jay Howell MD Primary Care Provider [phone] Encounter Details Date Type Department Care Team (Late st Contact Info) Description 08/26/2020 Transcribed Document [facility] [place] Family Medicine [address] [place] [address] ProviderJessie MD [address] [place] [address] Social History Tobacco Use Types Packs/Day Years Used Date Smoking Tobacco: Never Assessed Comments Unknown Sex and Gender Information Value Date Recorded Sex Assigned at Not on file Legal Sex Female 7:30 PM CDT Gender Identity Not on file Sexual Orientation Not on file documented as of this encounter Miscellaneous Notes * Cerner Conversion Note - Historical ProviderMD - 08/26/2020 12:15 PM CLASSICS TEACHER Peripheral Nerve Block Entered On: 08/26/2020 12:27 [...] - 08/26/2020 12:25 EST Electronically signed by [facility], [facility] Conversion Electrical Prospecting Observer Cerner at 02/04/2023 2:08 PM CDT documented in this encounter Plan of Treatment Not on file documented as of this encounter Visit Diagnoses Not on filedocumented in this encounter Care Teams Molded Grid And Parts Inspector Relationship Specialty Start Date End Date Jay Howell MD [address] [place] [phone] PCP - General Emergency Medicine 11/12/23 documented as of this encounter
--- OUTSIDE RECORDS SUMMARY | 2025-07-28 09:11 | XMS_ITS | Encounter Summary ---
Author Organization [employer] ([place], [place], [place], [place]) Address [address] [place] [address] Care Team Providers Care Assistant Professor Of Marine Biology Name Role Phone Jay Howell MD Primary Care Provider [phone] Encounter Details Date Type Department Care Team (Late st Contact Info) Description 08/25/2020 Transcribed Document [facility] [place] [address] [place] [address] ProviderJessie MD [address] [place] [address] Social History Tobacco Use Types Packs/Day Years Used Date Smoking Tobacco: Never Assessed Comments Unknown Sex and Gender Information Value Date Recorded Sex Assigned at Not on file Legal Sex Female 7:30 PM CDT Gender Identity Not on file Sexual Orientation Not on file documented as of this encounter Miscellaneous Notes * Cerner Conversion Note - Jessie Yuen MD - 08/25/2020 7:28 AM MANAGER PRIMARY WOCN Inpatient Documentation Entered On: 08/25/2020 15:46 [...] 08/25/2020 15:46 EST Electronically signed by Sivan, [facility] Conversion Materials Recycler Cerner at 02/04/2023 2:08 PM CDT documented in this encounter Plan of Treatment Not on file documented as of this encounter Visit Diagnoses Not on filedocumented in this encounter Care Teams Assistant Professor Of Marine Biology Relationship Specialty Start Date End Date Jay Howell MD [address] [place] [phone] PCP - General Emergency Medicine 11/12/23 documented as of this encounter
--- OUTSIDE RECORDS SUMMARY | 2025-07-28 09:11 | XMS_ITS | Encounter Summary ---
Author Organization [employer] ([place], [place], [place], [place]) Address [address] [place] [address] Care Team Providers Care Motorized Squad Commanding Officer Name Role Phone Jay Howell MD Primary Care Provider [phone] Encounter Details Date Type Department Care Team (Late st Contact Info) Description 08/26/2020 Transcribed Document [facility] [place] [address] [place] [address] ProviderJessie MD [address] [place], [place] [address] Social History Tobacco Use Types Packs/Day Years Used Date Smoking Tobacco: Never Assessed Comments Unknown Sex and Gender Information Value Date Recorded Sex Assigned at Not on file Legal Sex Female 7:30 PM CDT Gender Identity Not on file Sexual Orientation Not on file documented as of this encounter Miscellaneous Notes * Cerner Conversion Note - Historical ProviderMD - 08/26/2020 1:15 PM CENTRAL LAB TECHNICIAN [facility] Main OR Preop Summary Primary Physician: KAELA HEBERT MD Finalized Date/Time: 08/26/20 13:59:45 Pt. Name: SKYLER MONTOYA.O.B./Sex: 1940 Female Med Rec #: [id number] Physician: BETH DAVALOS MD-INT Financial #: [id number] Pt. Type: I Room/Bed: [facility] [place] [facility]/ Admit/Disch: 08/25/20 05:53:00 - Institution: [facility] PreOp Case Times Entry 1 In Preop 08/26/20 10:52:00 Ready for Holding n/a Room Patient Ready for 08/26/20 11:30:00 Surgery Patient Out of Preop 08/26/20 12:57:00 Patient Out of n/a Holding Room Last Modified By: CARLTON GUTIERREZ 08/26/20 13:59:44 [facility] PreOp Case Times Audit 08/26/20 13:59:44 Business Intelligence Etl Developer: [email or web address] Modifier: [email or web address] <+> 1 Patient Out of Preop 08/26/20 11:36:02 Business Intelligence Etl Developer: [email or web address] Modifier: [email or web address] <+> 1 Patient Ready for Surgery Finalized By: CARLTON GUTIERREZ Document Signatures Signed By: CARLTON GUTIERREZ 08/26/20 13:59 Electronically signed by Sivan [facility] Conversion Community Organization Worker Cerner at 02/04/2023 2:16 PM CDT documented in this encounter Plan of Treatment Not on file documented as of this encounter Visit Diagnoses Not on filedocumented in this encounter Care Teams Motorized Squad Commanding Officer Relationship Specialty Start Date End Date Jay Howell MD [address] [place] [phone] PCP - General Emergency Medicine 11/12/23 documented as of this encounter
--- OUTSIDE RECORDS SUMMARY | 2025-07-28 09:11 | XMS_ITS | Referral Summary ---
Author Organization [employer] ([place], [place], [place], [place]) Address [address] [place] [address] Care Team Providers Care Curator Of Manuscripts Name Role Phone Jay Howell MD Primary [...] Date Kennedy rded Speak language other than Yemeni at home Not on file 10/30/2023 Want [...] on file Insurance MEDICARE PART A B [facility] [place] [id number] Advance Directives For more information, please contact: [phone] * Full Code (Latest Code Status on File) Date Activated Date Inactivated Comments 11/25/2022 10:41 AM 11/26/2022 5:33 PM * Full Code Date Activated Date Inactivated Comments 11/25/2022 8:11 AM 11/25/2022 10:41 AM -Attempt Resu scitation if person has no pulse and is not breathing. -If no pulse or not breathing attempt CPR/CODE. -Call Rapid Response if patient is in distress. Care Teams Curator Of Manuscripts Relationship Specialty Start Date End Date Jay Howell MD [address] [place] [phone] PCP - General Emergency Medicine 11/12/23
--- OUTSIDE RECORDS SUMMARY | 2025-07-28 09:11 | XMS_ITS | Encounter Summary ---
Author Organization [employer] ([place], [place], [place], [place]) Address [address] [place] [address] Care Team Providers Care Asphalt Paver Operator Name Role Phone Jay Howell MD Primary Care Provider [phone] Encounter Details Date Type Department Care Team (Late st Contact Info) Description 03/18/2021 Transcribed Document [facility] [place] [facility] [place] [address] ProviderJessie MD [address] [place] [id number] Social History Tobacco Use Types Packs/Day Years [...] of the form. Electronically signed by Sivan, [facility] Conversion Candle Molder Machine Cerner at 02/04/2023 2:20 PM CDT documented in this encounter Plan of Treatment Not on file documented as of this encounter Visit Diagnoses Not on filedocumented in this encounter Care Teams Asphalt Paver Operator Relationship Specialty Start Date End Date Jay Howell MD [address] [place] [phone] PCP - General Emergency Medicine 11/12/23 documented as of this encounter
--- OUTSIDE RECORDS SUMMARY | 2025-07-28 09:11 | XMS_ITS | Encounter Summary ---
Author Organization [employer] ([place], [place], [place], [place]) Address [address] [address] Care Team Providers Care Personal Lines Underwriter Name Role Phone Jay Howell MD Primary Care Provider [phone] Encounter Details Date Type Department Care Team (Late st Contact Info) Description 08/26/2020 Transcribed Document [facility] [place] [address] [place] [address] ProviderJessie MD [address] [place] [address] Social History Tobacco Use Types Packs/Day Years Used Date Smoking Tobacco: Never Assessed Comments Unknown Sex and Gender Information Value Date Recorded Sex Assigned at Not on file Legal Sex Female 7:30 PM CDT Gender Identity Not on file Sexual Orientation Not on file documented as of this encounter Miscellaneous Notes * Cerner Conversion Note - Historical ProviderMD - 08/26/2020 10:39 AM MEDICAL SURGICAL TECH [facility] Authorization Entered On: 08/26/2020 10:39 EST Performed On: 08/26/2020 10:39 EST by MARILYNN RAMÍREZ, RN-Utilization Review Primary Insurance Authorization Authorization and Policy Numbers : Insurance 1 Health Plan: MEDICARE Policy Number: [id number] Authorization Number: Insurance 2 Health Plan: AARP N Policy Number: [id number] Authorization Number: Insurance Primary Name : MEDICARE Policy Number: [id number] Authorized Service Begin Date-Primary : 08/25/2020 EST Historical Authorization Comments-Primary : No Authorization Comments Found MARILYNN RAMÍREZ, RN-Utilization Review - 08/26/2020 10:39 EST Electronically signed by Sivan [facility] Conversion Flight Paramedic Cerner at 02/04/2023 2:22 PM CDT documented in this encounter Plan of Treatment Not on file documented as of this encounter Visit Diagnoses Not on filedocumented in this encounter Care Teams Personal Lines Underwriter Relationship Specialty Start Date End Date Jay Howell MD [address] [place] [phone] PCP - General Emergency Medicine 11/12/23 documented as of this encounter
--- OUTSIDE RECORDS SUMMARY | 2025-07-28 09:11 | XMS_ITS | Encounter Summary ---
Author Organization [employer] ([place], [place], [place], [place]) Address [address] [place] [place] [address] Care Team Providers Care Local Area Network Administrator Name Role Phone Jay Howell MD Primary Care Provider [phone] Encounter Details Date Type Department Care Team (Late st Contact Info) Description 08/26/2020 Transcribed Document [facility] [place] [address] [place] [address] ProviderJessie MD [address] [place] [address] Social History Tobacco Use Types Packs/Day Years Used Date Smoking Tobacco: Never Assessed Comments Unknown Sex and Gender Information Value Date Recorded Sex Assigned at Not on file Legal Sex Female 7:30 PM CDT Gender Identity Not on file Sexual Orientation Not on file documented as of this encounter Miscellaneous Notes * Cerner Conversion Note - Historical ProviderMD - 08/26/2020 6:06 PM FOOD SAFETY TECHNICIAN Spiritual Care Short Form Entered On: 08/26/2020 18:06 EST Performed On: 08/26/2020 18:06 EST by JEREMIAH HULL General Information, Spiritual Care Spiritual Care Referred by : Nurse Reason for Visit : Referral/Consult Synagogue Preference : Christianity JEREMIAH HULL - 08/26/2020 18:06 EST documented in this encounter Plan of Treatment Not on file documented as of this encounter Visit Diagnoses Not on filedocumented in this encounter Care Teams Local Area Network Administrator Relationship Specialty Start Date End Date Jay Howell MD [address] [place] [phone] PCP - General Emergency Medicine 11/12/23 documented as of this encounter
--- OUTSIDE RECORDS SUMMARY | 2025-07-28 09:11 | XMS_ITS | Encounter Summary ---
Author Organization [employer] ([place], [place], [place], [place]) Address [address] [place] [address] Care Team Providers Care Flight Test Data Acquisition Technician Name Role Phone Jay Howell MD Primary Care Provider [phone] Encounter Details Date Type Department Care Team (Late st Contact Info) Description 03/19/2021 Transcribed Document [facility] [place] [address] [place] [address] ProviderJessie MD [address] [place] [address] Social History Tobacco Use Types Packs/Day Years [...] KENDRA ROJAS, PT - 03/19/2021 17:49 EDT Bill Peddler Goals Mobility/Bed Mobility LTG PT Grid Goal [...] 03/19/2021 16:05 EDT Electronically signed by Sivan [facility] Conversion Criminal Defense Attorney Cerner at 02/04/2023 1:59 PM CDT documented in this encounter Plan of Treatment Not on file documented as of this encounter Visit Diagnoses Not on filedocumented in this encounter Care Teams Flight Test Data Acquisition Technician Relationship Specialty Start Date End Date Jay Howell MD [address] [place] [phone] PCP - General Emergency Medicine 11/12/23 documented as of this encounter
--- OUTSIDE RECORDS SUMMARY | 2025-07-28 09:12 | XMS_ITS | Encounter Summary ---
Author Organization [employer] ([place], [place], [place], [place]) Address [address] [place] [address] Care Team Providers Care Single Pointed Operator Name Role Phone Jay Howell MD Primary Care Provider [phone] Encounter Details Date Type Department Care Team (Late st Contact Info) Description 06/12/2020 Transcribed Document [facility] [place] [address] [place] [address] ProviderJessie MD [address] [place] [address] Social History Tobacco Use Types Packs/Day Years Used Date Smoking Tobacco: Never Assessed Comments Unknown Sex and Gender Information Value Date Recorded Sex Assigned at Not on file Legal Sex Female 7:30 PM CDT Gender Identity Not on file Sexual Orientation Not on file documented as of this encounter Miscellaneous Notes * Cerner Conversion Note - Jessie ProviderMD - 06/12/2020 9:23 PM CDT [place] Suicide Severity Rating Scale (C-SSRS) Entered On: 06/12/2020 22:56 EDT Performed On: 06/12/2020 22:00 EDT by NICOLE BYERS RN [place] Suicide Severity Rating Scale (C-SSRS) CSSRS Past [...] on filedocumented in this encounter Care Teams Single Pointed Operator Relationship Specialty Start Date End Date Jay Howell MD [address] [place] [phone] PCP - General Emergency Medicine 11/12/23 documented as of this encounter
--- OUTSIDE RECORDS SUMMARY | 2025-07-28 09:12 | XMS_ITS | Encounter Summary ---
Author Organization [employer] ([place], [place], [place], [place]) Address [address] [place] [address] Care Team Providers Care Rn Cvicu Name Role Phone Jay Howell MD Primary Care Provider [phone] Encounter Details Date Type Department Care Team (Late st Contact Info) Description 03/16/2021 Transcribed Document [facility] [place] [address] [place] [address] ProviderJessie MD [address] [place], [place] [address] Social History Tobacco Use Types Packs/Day Years Used Date Smoking Tobacco: Never Assessed Comments Unknown Sex and Gender Information Value Date Recorded Sex Assigned at Not on file Legal Sex Female 7:30 PM CDT Gender Identity Not on file Sexual Orientation Not on file documented as of this encounter Miscellaneous Notes * Cerner Conversion Note - Jessie ProviderMD - 03/16/2021 11:24 AM CDT [place] Suicide Severity Rating Scale (C-SSRS) Entered On: 03/16/2021 12:59 EDT Performed On: 03/16/2021 12:57 EDT by Viri Gonsales RN [place] Suicide Severity Rating Scale (C-SSRS) CSSRS Past [...] filedocumented in this encounter Care Teams Rn Cvicu Relationship Specialty Start Date End Date Jay Howell MD [address] [place] [phone] PCP - General Emergency Medicine 11/12/23 documented as of this encounter
--- OUTSIDE RECORDS SUMMARY | 2025-07-28 09:12 | XMS_ITS | Encounter Summary ---
Author Organization [employer] ([place], [place], [place], [place]) Address [address] [place] [address] Care Team Providers Care Cloud Systems Architect Name Role Phone Jay Howell MD Primary Care Provider [phone] Encounter Details Date Type Department Care Team (Late st Contact Info) Description 06/12/2020 Transcribed Document [facility] [place] [address] [place] [address] ProviderJessie MD [address] [place] [address] Social History Tobacco Use Types Packs/Day Years [...] Communication Barrier : None Primary Language : [place] Islander Any Spiritual/Cultural Needs or Requests : No [...] filedocumented in this encounter Care Teams Cloud Systems Architect Relationship Specialty Start Date End Date Jay Howell MD [address] [place] [phone] PCP - General Emergency Medicine 11/12/23 documented as of this encounter
--- OUTSIDE RECORDS SUMMARY | 2025-07-28 09:12 | XMS_ITS | Encounter Summary ---
Author Organization [employer] ([place], [place], [place], [place]) Address [address] [place] [address] Care Team Providers Care Rotary Drill Operator Name Role Phone Jay Howell MD Primary Care Provider [phone] Encounter Details Date Type Department Care Team (Late st Contact Info) Description 03/16/2021 Transcribed Document [facility] [place] [address] [place] [address] ProviderJessie MD [address] [place], [place] [address] Social History Tobacco Use Types Packs/Day Years [...] 03/16/2021 12:57 EDT Electronically signed by Sivan [facility] Conversion Tamping Machine Operator Road Forms Cerner at 02/04/2023 1:58 PM CDT documented in this encounter Plan of Treatment Not on file documented as of this encounter Visit Diagnoses Not on filedocumented in this encounter Care Teams Rotary Drill Operator Relationship Specialty Start Date End Date Jay Howell MD [address] [place] [phone] PCP - General Emergency Medicine 11/12/23 documented as of this encounter
--- OUTSIDE RECORDS SUMMARY | 2025-07-28 09:12 | XMS_ITS | Encounter Summary ---
Author Organization [employer] ([place], [place], [place], [place]) Address [address] [place] [address] Care Team Providers Care Manager Hair Name Role Phone Jay Howell MD Primary Care Provider [phone] Encounter Details Date Type Department Care Team (Late st Contact Info) Description 06/13/2020 Transcribed Document [facility] [place] [address] [place] [address] ProviderJessie MD [address] [place] [address] Social History Tobacco Use Types Packs/Day Years [...] filedocumented in this encounter Care Teams Manager Hair Relationship Specialty Start Date End Date Sokan, Jay O, MD [address] [place] [phone] PCP - General Emergency Medicine 11/12/23 documented as of this encounter
--- OUTSIDE RECORDS SUMMARY | 2025-07-28 09:12 | XMS_ITS | Encounter Summary ---
Author Organization [employer] ([place], [place], [place], [place]) Address [address] [place] [address] Care Team Providers Care High Voltage Electrician Name Role Phone Jay Howell MD Primary Care Provider [phone] Encounter Details Date Type Department Care Team (Late st Contact Info) Description 06/13/2020 Transcribed Document [facility] [place] [address] [place] [address] ProviderJessie MD [address] [place] [address] Social History Tobacco Use Types Packs/Day Years [...] 06/13/2020 2:31 EDT Electronically signed by Sivan [facility] Conversion Principal Strategist Cerner at 02/04/2023 2:19 PM CDT documented in this encounter Plan of Treatment Not on file documented as of this encounter Visit Diagnoses Not on filedocumented in this encounter Care Teams High Voltage Electrician Relationship Specialty Start Date End Date Jay Howell MD [address] [place] [phone] PCP - General Emergency Medicine 11/12/23 documented as of this encounter
--- OUTSIDE RECORDS SUMMARY | 2025-07-28 09:12 | XMS_ITS | Encounter Summary ---
Author Organization [employer] ([place], [place], [place], [place]) Address [address] [place] [address] Care Team Providers Care Hair Or Beauty Salon Manager Name Role Phone Jay Howell MD Primary Care Provider [phone] Encounter Details Date Type Department Care Team (Late st Contact Info) Description 06/13/2020 Transcribed Document [facility] [place] [address] [place] [address] ProviderJessei MD [address] [place] [address] Social History Tobacco Use Types Packs/Day Years [...] Tobacco Cues : Verbalizes understanding Activities to Amado With Smoking Urges : Verbalizes understanding Basic Information About Quitting : Verbalizes understanding Tobacco Use Increases Chance of Relapse : Verbalizes understanding Withdrawal Symptoms Peak After Quitting : Verbalizes understanding Addictive Nature of Tobacco : Verbalizes understanding PAUL GERBER RN - 06/13/2020 3:34 EDT Electronically signed by Gayle Finnegan Conversion Drug Abuse Program Coordinator Cerner at 02/04/2023 2:21 PM CDT documented in this encounter Plan of Treatment Not on file documented as of this encounter Visit Diagnoses Not on filedocumented in this encounter Care Teams Hair Or Beauty Salon Manager Relationship Specialty Start Date End Date Jay Howell MD [address] [place] [phone] PCP - General Emergency Medicine 11/12/23 documented as of this encounter
--- OUTSIDE RECORDS SUMMARY | 2025-07-28 09:12 | XMS_ITS | Encounter Summary ---
Author Organization [employer] ([place], [place], [place], [place]) Address [address] [place] [address] Care Team Providers Care Litigation Claim Representative Name Role Phone Jay Howell MD Primary Care Provider [phone] Encounter Details Date Type Department Care Team (Late st Contact Info) Description 12/21/2018 Transcribed Document [facility] [place] [address] [place] [address] ProviderJessie MD [address] [place] [address] Social History Tobacco Use Types Packs/Day Years Used Date Smoking Tobacco: Never Assessed Comments Unknown Sex and Gender Information Value Date Recorded Sex Assigned at Not on file Legal Sex Female 7:30 PM CDT Gender Identity Not on file Sexual Orientation Not on file documented as of this encounter Miscellaneous Notes * [employer] Conversion Note - Jessie Yuen MD - 12/21/2018 11:50 AM WELFARE ELIGIBILITY INTERVIEWER Patient Education Materials Follows: Groin Site Care [...] 11/05/2011 Document Revised: 12/25/2012 Document Reviewed: 11/05/2011 [employer] FPCare? Patient Information ?2014 [employer]. Cardiovascular Coronary Artery Disease, Female Coronary artery [...] 12/25/2012 Document Revised: 03/10/2017 Document Reviewed: 02/04/2015 [employer] Interactive Patient Education ? 2017 [employer]. Nutrition Heart-Healthy Eating Plan Introduction Heart-healthy meal [...] What foods can I eat? GrainsBreads, including Salvadorean, white, jie, wheat, raisin, rye, oatmeal, and Chilean. Tortillas that are neither fried nor made with lard or trans fat. Low-fat rolls, including hotdog and hamburger buns and Citizen Of [place] muffins. Biscuits. Muffins. Waffles. Pancakes. Light popcorn. Whole-grain cereals. Flatbread. [place] toast. Pretzels. Breadsticks. Rusks. Low-fat snacks. Low-fat [...] cottage cheese. Whole-milk cheeses, including blue (fredo), [place] Arm[place], Brie, Nate, Tanzanian, Havarti, Lithuanian, cheddar, Camembert, and [place]. Whole or 2% milk that is liquid, [...] that has suet, meat fat, or shortening. Warren butter, hydrogenated oils, palm oil, coconut oil, [...] including vitamins, herbs, eye drops, creams, and [id number]-[id number] medicines. ??? Any problems you or family [...] 03/06/2014 [employer] Interactive Patient Education ? 2017 [employer] documented in this encounter Plan of Treatment Not on file documented as of this encounter Visit Diagnoses Not on filedocumented in this encounter Care Teams Litigation Claim Representative Relationship Specialty Start Date End Date Jay Howell MD [address] [place] [phone] PCP - General Emergency Medicine 11/12/23 documented as of this encounter
--- OUTSIDE RECORDS SUMMARY | 2025-07-28 09:12 | XMS_ITS | Encounter Summary ---
Author Organization [employer] ([place], [place], [place], [place]) Address [address] [place] [address] Care Team Providers Care Guardian Family Member Name Role Phone Jay Howell MD Primary Care Provider [phone] Encounter Details Date Type Department Care Team (Late st Contact Info) Description 03/16/2021 Transcribed Document [facility] [place] [address] [place] [address] ProviderJessie MD [address] [place] [address] [phone] Social History Tobacco Use Types Packs/Day Years [...] : 2 - Emergent Tracking Group : [facility] ED NICOLE CHEN RN - 03/16/2021 [...] 11:35:39 EDT) Problems(Active) Apnea, sleep (SNOMED CT :551634186 ) Name of Problem: Apnea, sleep ; Recorder: JUAN LUIS GIL RN; Confirmation: Confirmed ; Classification: Medical ; Code: [id number] ; Contributor System: PowerChart ; Last Updated: 11/12/2014 10:12 EST ; Life Cycle Date: 11/12/2014 ; Life Cycle Status: Active ; Vocabulary: SNOMED CT Arthritis (SNOMED CT :4892493 ) Name of Problem: Arthritis ; Recorder: KENYON CHAMBERS RN; Confirmation: Confirmed ; Classification: Medical ; Code: [id number] ; Contributor System: PowerChart ; Last Updated: 04/10/2016 8:04 EDT ; Life Cycle Date: 08/13/2013 ; Life Cycle Status: Active ; Vocabulary: SNOMED CT Atrial fibrillation with RVR (SNOMED CT :0681579660 ) Name of Problem: Atrial fibrillation with RVR ; Recorder: SANG RICO APRN; Confirmation: Confirmed ; Classification: Medical ; Code: [id number] ; Contributor System: PowerChart ; Last Updated: 04/10/2016 8:05 EDT ; Life Cycle Date: 04/10/2016 ; Life Cycle Status: Active ; Responsible Provider: SANG RICO APRN; Vocabulary: SNOMED CT Blood clot (SNOMED CT :389671711 ) Name of Problem: Blood clot ; Recorder: KENYON CHAMBERS RN; Confirmation: Confirmed ; Classification: Patient Stated ; Code: [id number] ; Contributor System: PowerChart ; Last Updated: [...] Vocabulary: Patient Care Chest pain (SNOMED CT :72626331 ) Name of Problem: Chest pain ; Recorder: SANG RICO APRN; Confirmation: Complaint of ; Classification: Medical ; Code: [id number] ; Contributor System: PowerChart ; Last Updated: 04/10/2016 8:05 EDT ; Life Cycle Status: Active ; Responsible Provider: SANG RICO APRN; Vocabulary: SNOMED CT Chronic anticoagulation (SNOMED CT :655308551 ) Name of Problem: Chronic anticoagulation ; Recorder: SANG RICO APRN; Confirmation: Confirmed ; Classification: Medical ; Code: [id number] ; Contributor System: Exchange GroupChart ; Last Updated: 04/10/2016 8:05 EDT ; Life Cycle Date: 04/10/2016 ; Life Cycle Status: Active ; Responsible Provider: SANG RICO APRN; Vocabulary: SNOMED CT Clotting disorder (SNOMED CT :402096590 ) Name of Problem: Clotting disorder ; Recorder: KENYON CHAMBERS RN; Confirmation: Confirmed ; Classification: Patient Stated ; Code: 649125593 ; Contributor System: Exchange GroupChart ; Last Updated: 03/28/2014 19:29 EDT ; Life Cycle Date: 08/13/2013 ; Life Cycle Status: Active ; Vocabulary: SNOMED CT COPD (SNOMED CT :18247644 ) Name of Problem: COPD ; Recorder: KENYON CHAMBERS RN; Confirmation: Confirmed ; Classification: Medical ; Code: 45579528 ; Contributor System: Exchange GroupChart ; Last Updated: 04/10/2016 8:03 EDT ; Life Cycle Date: 08/13/2013 ; Life Cycle Status: Active ; Vocabulary: SNOMED CT Coronary artery disease (SNOMED CT :2910871028 ) Name of Problem: Coronary artery disease ; Recorder: KENYON CHAMBERS RN; Confirmation: Confirmed ; Classification: Medical ; Code: 4510302069 ; Contributor System: Exchange GroupChart ; Last Updated: 04/10/2016 8:03 EDT ; Life Cycle Date: 08/13/2013 ; Life Cycle Status: Active ; Vocabulary: SNOMED CT Diabetes mellitus (SNOMED CT :744755680 ) Name of Problem: Diabetes mellitus ; Recorder: KENYON CHAMBERS RN; Confirmation: Confirmed ; Classification: Medical ; Code: 990025496 ; Contributor System: Exchange GroupChart ; Last Updated: 04/10/2016 8:04 EDT ; Life Cycle Date: 08/13/2013 ; Life Cycle Status: Active ; Vocabulary: SNOMED CT Emphysema (SNOMED CT :587696673 ) Name of Problem: Emphysema ; Recorder: JUAN LUIS GIL RN; Confirmation: Confirmed ; Classification: Medical ; Code: 530857854 ; Contributor System: PowerChart ; Last Updated: 11/12/2014 10:11 EST ; Life Cycle Date: 11/12/2014 ; Life Cycle Status: Active ; Vocabulary: SNOMED CT GERD - Gastro-esophageal reflux disease (SNOMED CT :7504237298 ) Name of Problem: GERD - Gastro-esophageal reflux disease ; Recorder: KENYON CHAMBERS RN; Confirmation: Confirmed ; Classification: Medical ; Code: [id number] ; Contributor System: PowerChart ; Last Updated: [...] Patient Care High blood pressure (SNOMED CT :36061543 ) Name of Problem: High blood pressure ; Recorder: KENYON CHAMBERS RN; Confirmation: Confirmed ; Classification: Medical ; Code: 65689003 ; Contributor System: PowerChart ; Last Updated: 04/10/2016 8:03 EDT ; Life Cycle Date: 08/13/2013 ; Life Cycle Status: Active ; Vocabulary: SNOMED CT History of obstructive sleep apnea (IMO :91227976 ) Name of Problem: History of obstructive sleep apnea ; Recorder: SYSTEM, SYSTEM; Confirmation: Confirmed ; Classification: Medical ; Code: 24163495 ; Last Updated: 08/25/2020 18:21 EST ; Life Cycle Date: 08/25/2020 ; Life Cycle Status: Active ; Vocabulary: IMO Hx of pulmonary embolus (SNOMED CT :876893923 ) Name of Problem: Hx of pulmonary embolus ; Recorder: SANG RICO APRN; Confirmation: Confirmed ; Classification: Medical ; Code: 326871026 ; Contributor System: PowerChart ; Last Updated: 04/10/2016 8:05 EDT ; Life Cycle Date: 04/10/2016 ; Life Cycle Status: Active ; Responsible Provider: SANG RICO APRN; Vocabulary: SNOMED CT Hyperlipidemia (SNOMED CT :85921725 ) Name of Problem: Hyperlipidemia ; Recorder: KENYON CHAMBERS RN; Confirmation: Confirmed ; Classification: Medical ; Code: 63427797 ; Contributor System: Exchange GroupChart ; Last Updated: 04/10/2016 8:03 EDT ; Life Cycle Date: 08/13/2013 ; Life Cycle Status: Active ; Vocabulary: SNOMED CT Multiple renal cysts (SNOMED CT :088843406 ) Name of Problem: Multiple renal cysts ; Recorder: KENYON CHAMBERS RN; Confirmation: Confirmed ; Classification: Medical ; Code: 312910158 ; Contributor System: Exchange GroupChart ; Last Updated: 04/10/2016 8:04 EDT ; Life Cycle Date: 08/13/2013 ; Life Cycle Status: Active ; Vocabulary: SNOMED CT Stented coronary artery (SNOMED CT :1941049927 ) Name of Problem: Stented coronary artery ; Recorder: KENYON CHAMBERS RN; Confirmation: Confirmed ; Classification: Medical ; Code: 6537012753 ; Contributor System: Exchange GroupChart ; Last Updated: 04/10/2016 8:03 EDT ; Life Cycle Date: 08/13/2013 ; Life Cycle Status: Active ; Vocabulary: SNOMED CT Diagnoses(Active) Syncope/Near syncope Date: 03/16/2021 ; Diagnosis Type: Reason For Visit ; Confirmation: Complaint of ; Clinical Dx: Syncope/Near syncope ; Classification: Medical ; Clinical Service: Emergency medicine ; Code: PNED ; Probability: 0 ; Diagnosis Code: [id number] ED Height and Weight Height Source : Stated Height Entry Format : [place] Height, Feet : 5 ft(Converted to: 152 cm, 60 Inch) Height, Inches : 3 Inch(Converted to: 0 ft 3 Inch, 7.62 cm) Clinical Height : 160.02 cm Weight Source, ED : Critical estimated dosing weight Weight Entry Format : [place] Weight, Pounds : 158 lb Clinical Dosing Weight : 71.82 kg Body Surface Area (BSA) : 1.75 m2 Body Mass Index : 28 kg/m2 (HI) [place] Body Weight (IBW) : 52.02 kg NICOLE CHEN RN - 03/16/2021 11:32 EDT documented in this encounter Plan of Treatment Not on file documented as of this encounter Visit Diagnoses Not on filedocumented in this encounter Care Teams Guardian Family Member Relationship Specialty Start Date End Date Jay Howell MD [address] [place] [phone] PCP - General Emergency Medicine 11/12/23 documented as of this encounter
--- OUTSIDE RECORDS SUMMARY | 2025-07-28 09:12 | XMS_ITS | Encounter Summary ---
Author Organization [employer] ([place], [place], [place], [place]) Address [address] [place] [address] Care Team Providers Care Counseling Director Name Role Phone Jay Howell MD Primary Care Provider [phone] Encounter Details Date Type Department Care Team (Late st Contact Info) Description 12/21/2018 Transcribed Document [facility] [place] [address] [place] [address] ProviderJessie MD [address] [place] [address] Social History Tobacco Use Types Packs/Day Years Used Date Smoking Tobacco: Never Assessed Comments Unknown Sex and Gender Information Value Date Recorded Sex Assigned at Not on file Legal Sex Female 7:30 PM CDT Gender Identity Not on file Sexual Orientation Not on file documented as of this encounter Miscellaneous Notes * Cerner Conversion Note - Jessie ProviderMD - 12/21/2018 11:46 AM MILK POWDER GRINDER Nursing Discharge Summary Entered On: 12/21/2018 11:46 [...] - 12/21/2018 11:46 EST Electronically signed by [facility], [facility] Conversion Ui Software Developer Cerner at 02/04/2023 2:08 PM CDT documented in this encounter Plan of Treatment Not on file documented as of this encounter Visit Diagnoses Not on filedocumented in this encounter Care Teams Counseling Director Relationship Specialty Start Date End Date Jay Howell MD [address] [place] [phone] PCP - General Emergency Medicine 11/12/23 documented as of this encounter
--- OUTSIDE RECORDS SUMMARY | 2025-07-28 09:12 | XMS_ITS | Encounter Summary ---
Author Organization [employer] ([place], [place], [place], [place]) Address [address] [place] [address] Care Team Providers Care Warehouse Production Worker Name Role Phone Jay Howell MD Primary Care Provider [phone] Encounter Details Date Type Department Care Team (Late st Contact Info) Description 06/13/2020 Transcribed Document [facility] [place] [address] [place] [address] ProviderJessie MD [address] [place] [address] Social History Tobacco Use Types Packs/Day Years [...] PharmD student Luis Manuel Briones PharmD, BCPS [phone] Electronically signed by [facility] Conversion Patient Escort Cerner at 02/04/2023 2:11 PM CDT documented in this encounter Plan of Treatment Not on file documented as of this encounter Visit Diagnoses Not on filedocumented in this encounter Care Teams Warehouse Production Worker Relationship Specialty Start Date End Date Jay Howell MD [address] [place] [phone] PCP - General Emergency Medicine 11/12/23 documented as of this encounter
--- OUTSIDE RECORDS SUMMARY | 2025-07-28 09:12 | XMS_ITS | Encounter Summary ---
Author Organization [employer] ([place], [place], [place], [place]) Address [address] [place] [address] Care Team Providers Care Engineering And Operations Director Name Role Phone Jay Howell MD Primary Care Provider [phone] Encounter Details Date Type Department Care Team (Late st Contact Info) Description 12/21/2018 Transcribed Document [facility] [place] [facility] [address] ProviderJessie MD [address] [place] [phone] Social History Tobacco Use Types Packs/Day Years Used Date Smoking Tobacco: Never Assessed Comments Unknown Sex and Gender Information Value Date Recorded Sex Assigned at Not on file Legal Sex Female 7:30 PM CDT Gender Identity Not on file Sexual Orientation Not on file documented as of this encounter Miscellaneous Notes * Cerner Conversion Note - Jessie Yuen MD - 12/21/2018 11:47 AM STORAGE WHARFAGE CLERK [address] , [place], [place] [id number] Patient Copy Patient Information: Name: SKYLER MONTOYA Current Date: 12/21/2018 11:47:13 : 1940 Patient Address: [address] [place] [phone] Patient Attending Physician: FREDY YAÑEZ MD-CAR Primary Care Provider: TARA CHEN (REF), -MED Primary Care Provider Discharge Diagnosis: CAD (coronary artery disease); DM (diabetes mellitus); Exertional angina; HLD (hyperlipidemia); HTN (hypertension); Hx of CABG; DANTE (obstructive sleep apnea); Paroxysmal A-fib Weight on Admission: 158 lb, 0 oz Comment: Follow-up Instructions: With: Address: When: [facility] [address], [place] [address] Business (1) In 1 month 01/21/2019 With: Address: When: [facility] [address], [address] [place], [place] [id number] Business (1) Within 2 to 5 weeks [...] What foods can I eat? GrainsBreads, including Kyrgyz, white, jie, wheat, raisin, rye, oatmeal, and Yi. Tortillas that are neither fried nor made with lard or trans fat. Low-fat rolls, including hotdog and hamburger buns and Iraqi muffins. Biscuits. Muffins. Waffles. Pancakes. Light popcorn. Whole-grain cereals. Flatbread. [place] toast. Pretzels. Breadsticks. Rusks. Low-fat snacks. Low-fat [...] cottage cheese. Whole-milk cheeses, including blue (fredo), [place], Brie, Nate, Mozambican, Havarti, Sri Lankan, cheddar, Camembert, and [place]. Whole or 2% milk that is liquid, [...] that has suet, meat fat, or shortening. Gibson butter, hydrogenated oils, palm oil, coconut oil, [...] 12/25/2012 Document Revised: 03/10/2017 Document Reviewed: 02/04/2015 [employer] Interactive Patient Education ? 2017 [employer] Groin Site Care Refer to this [...] Document Reviewed: 11/05/2011 ExitCare? Patient Information ?2013 [employer]. Angiogram An angiogram, also called angiography, is [...] including vitamins, herbs, eye drops, creams, and bcwm-ntd-fvkjjco medicines. ??? Any problems you or family [...] 03/06/2014 Elsevier Interactive Patient Education ? 2017 [employer] Medication Leaflets: valsartan (elin LILY foster) [...] valsartan; ?? if you are on a wlg-qjwk-qenn; ?? if you are dehydrated; or ?? [...] may report side effects to FDA at 3-226-HKV-8936. What other drugs will affect valsartan? Tell [...] may interact with valsartan, including prescription and zbef-yud-kfuxapi medicines, vitamins, and herbal products. Not all [...] to ensure that the information provided by [employer]. ('[employer]') is accurate, up-to-date, and complete, but no guarantee is made to that effect. Drug information contained herein may be time sensitive. [employer] information has been compiled for use by healthcare practitioners and consumers in the [place] and therefore [employer] does not warrant that uses outside of the [place] are appropriate, unless specifically indicated otherwise. [employer]'s drug information does not endorse drugs, diagnose patients or recommend therapy. [employer] drug information is an informational resource designed [...] effective or appropriate for any given patient. [facility] does not assume any responsibility for any aspect of healthcare administered with the aid of information [facility] provides. The information contained herein is not intended to cover all possible uses, directions, precautions, warnings, drug interactions, allergic reactions, or adverse effects. If you have questions about the drugs you are taking, check with your doctor, nurse or pharmacist. Copyright 6449-7292 [facility] [employer]. Version: 16.05. Revision Date: 09/08/2016. hydralazine (bob [...] may report side effects to FDA at 0-991-LZP-5680. What other drugs will affect hydralazine? Tell your doctor about all your current medicines and any you start or stop using, especially: ? diazoxide (an injectable blood pressure medication); or ?? an MAO inhibitor--isocarboxazid, linezolid, methylene blue injection, phenelzine, rasagiline, selegiline, tranylcypromine, and others. This list is not complete. Other drugs may interact with hydralazine, including prescription and fsug-ifp-ypcgwhx medicines, vitamins, and herbal products. Not all [...] to ensure that the information provided by [employer]. ('[employer]') is accurate, up-to-date, and complete, but no guarantee is made to that effect. Drug information contained herein may be time sensitive. [employer] information has been compiled for use by healthcare practitioners and consumers in the [place] and therefore [employer] does not warrant that uses outside of the [place] are appropriate, unless specifically indicated otherwise. [employer] drug information does not endorse drugs, diagnose patients or recommend therapy. [employer] drug information is an informational resource designed [...] effective or appropriate for any given patient. [employer] does not assume any responsibility for any aspect of healthcare administered with the aid of information [employer] provides. The information contained herein is not intended to cover all possible uses, directions, precautions, warnings, drug interactions, allergic reactions, or adverse effects. If you have questions about the drugs you are taking, check with your doctor, nurse or pharmacist. Copyright 1453-5118 [employer]. Version: 5.01. Revision Date: 10/26/2017. amlodipine (am [...] may report side effects to FDA at 1-135-ISR-1733. What other drugs will affect amlodipine? Tell your doctor about all your current medicines and any you start or stop using, especially: ? nitroglycerin; ?? simvastatin (Zocor, Simcor, Vytorin); or ?? any other heart or blood pressure medications. This list is not complete. Other drugs may interact with amlodipine, including prescription and ezja-wsv-xipbwyq medicines, vitamins, and herbal products. Not all [...] to ensure that the information provided by [employer]. ('[employer]') is accurate, up-to-date, and complete, but no guarantee is made to that effect. Drug information contained herein may be time sensitive. [employer] information has been compiled for use by healthcare practitioners and consumers in the [place] and therefore [employer] does not warrant that uses outside of the [place] are appropriate, unless specifically indicated otherwise. [employer] drug information does not endorse drugs, diagnose patients or recommend therapy. [employer] drug information is an informational resource designed [...] effective or appropriate for any given patient. [employer] does not assume any responsibility for any aspect of healthcare administered with the aid of information [employer] provides. The information contained herein is not intended to cover all possible uses, directions, precautions, warnings, drug interactions, allergic reactions, or adverse effects. If you have questions about the drugs you are taking, check with your doctor, nurse or pharmacist. Copyright 9676-8968 [employer]. Version: 14.. Revision Date: 01/24/2017. clopidogrel (kloe [...] may report side effects to FDA at 8-972-OGI-0393. What other drugs will affect clopidogrel? Certain other medicines may increase your risk of bleeding, including aspirin. Avoid taking aspirin unless your doctor tells you to. Tell your doctor about all your other medicines, especially: ? any other medicines to treat or prevent blood clots; ?? a stomach acid senior adults director such as omeprazole, Nexium, or Prilosec; ?? an antidepressant; ?? an opioid medication; ?? a blood thinner--warfarin, Coumadin, Jantoven; or ?? NSAIDs (nonsteroidal anti-inflammatory drugs)--ibuprofen (Advil, Motrin), naproxen (Aleve), celecoxib, diclofenac, indomethacin, meloxicam, and others. This list is not complete. Other drugs may affect clopidogrel, including prescription and gzyy-wqi-gxgpxyc medicines, vitamins, and herbal products. Not all [...] to ensure that the information provided by [employer]. ('[employer]') is accurate, up-to-date, and complete, but no guarantee is made to that effect. Drug information contained herein may be time sensitive. [employer] information has been compiled for use by healthcare practitioners and consumers in the [place] and therefore [employer] does not warrant that uses outside of the [place] are appropriate, unless specifically indicated otherwise. [employer] drug information does not endorse drugs, diagnose patients or recommend therapy. [employer] drug information is an informational resource designed [...] effective or appropriate for any given patient. [employer] does not assume any responsibility for any aspect of healthcare administered with the aid of information [employer] provides. The information contained herein is not intended to cover all possible uses, directions, precautions, warnings, drug interactions, allergic reactions, or adverse effects. If you have questions about the drugs you are taking, check with your doctor, nurse or pharmacist. Copyright 3748-6460 [employer]. Version: 15.01. Revision Date: 08/07/2018. ranolazine (ra [...] following drugs: ? clarithromycin; ?? nefazodone; ?? [facility]'s wort; ?? antifungal medicine--itraconazole, ketoconazole; ?? HIV [...] may report side effects to FDA at 5-746-XNX-5096. What other drugs will affect ranolazine? Many [...] interact with ranolazine. This includes prescription and qcch-azt-xykgvcl medicines, vitamins, and herbal products. Give a [...] to ensure that the information provided by [employer]. ('[employer]') is accurate, up-to-date, and complete, but no guarantee is made to that effect. Drug information contained herein may be time sensitive. [employer] information has been compiled for use by healthcare practitioners and consumers in the [place] and therefore [employer] does not warrant that uses outside of the [place] are appropriate, unless specifically indicated otherwise. [employer]'s drug information does not endorse drugs, diagnose patients or recommend therapy. [employer] drug information is an informational resource designed [...] effective or appropriate for any given patient. [employer] does not assume any responsibility for any aspect of healthcare administered with the aid of information [employer] provides. The information contained herein is not intended to cover all possible uses, directions, precautions, warnings, drug interactions, allergic reactions, or adverse effects. If you have questions about the drugs you are taking, check with your doctor, nurse or pharmacist. Copyright 5992-2199 [employer]. Version: 11.. Revision Date: 12/04/2015. CIGARETTE SMOKING: The facts are clear, cigarette smoking will shorten your life. Smoking can cause many illnesses along the way. As a healthcare provider, we recommend that you stop smoking. Assistance with quitting is available by contacting 4-898-BUII-NOW. This is a free resource providing counseling, [...] Be sure to sign up for the [employer] patient portal, which gives you 09/05 access to your medical information ??? including these discharge instructions ??? using your computer, smartphone, or tablet. Just go to [employer] to get started. Questions? Call . [facility] would like to thank you for allowing us to assist you with your healthcare needs. MICHELE Skaggs JUDY D, (or computer help desk representative) have received the above patient education materials/instructions and have verbalized understanding: Patient Signature _ Date/Time Patient Molder Trimmer Signature (if needed) Date/Time Clinician/Hospital Molder Trimmer Signature (if needed) Date/Time Electronically signed by [facility] Conversion Etl Tester Cerner at 02/04/2023 2:20 PM CDT documented in this encounter Plan of Treatment Not on file documented as of this encounter Visit Diagnoses Not on filedocumented in this encounter Care Teams Engineering And Operations Director Relationship Specialty Start Date End Date Jay Howell MD [address] [place] [phone] PCP - General Emergency Medicine 11/12/23 documented as of this encounter
--- OUTSIDE RECORDS SUMMARY | 2025-07-28 09:12 | XMS_ITS | Encounter Summary ---
Author Organization [employer] ([place], [place], [place], [place]) Address [address] [place] [address] Care Team Providers Care Revenue Accounting Manager Name Role Phone Jay Howell MD Primary Care Provider [phone] Encounter Details Date Type Department Care Team (Late st Contact Info) Description 06/12/2020 Transcribed Document [facility] [place] [address] [place] [address] ProviderJessie MD [address] [place] [address] Social History Tobacco Use Types Packs/Day Years [...] Years. Coronary artery bypass graft (SNOMED CT 407392036) in 1992 at 52 Years. femur repair. Appendectomy (SNOMED CT 733582278). uterine suspension. Hysterectomy (SNOMED CT 393080177). back surgury. Cholecystectomy (SNOMED CT 24312224). Hip replacement (SNOMED CT 3778080461). cataract surgury., Reviewed as documented in chart. [...] EDT Height Source Stated Height Entry Format [place] Height/Length, [place] (ft) 5 ft Height/Length [place] 3 Inch CLINICALHEIGHT 160.02 cm [place] Body Weight 52.02 kg Weight Source, ED Critical estimated dosing weight Weight Entry Format [place] Weight Ukrainian lb 161 lb CLINICALWEIGHT 73.18 kg Body [...] rhythm, No ST changes, no ectopy, normal IL & QRS intervals, EP Interp. Electrocardiogram: Time 06/13/2020 00:55:00, rate 67, normal sinus rhythm, No ST changes, no ectopy, normal IL & QRS intervals, EP Interp. Results review: [...] % 34.6 % Lymph # 1.99 x10(3)/uL [place] % 10.6 % HI [place] # 0.61 K/uL [place] % 2.1 % [...] type: Telemetry unit, Admitting: MARIA ELENA DAVALOS [facility] . Counseled: Patient, Family, Regarding diagnosis, Regarding diagnostic results, Regarding treatment plan, Patient indicated understanding of instructions. Notes: Patient presents with hypertensive urgency and chest pain. Initial EKG and troponin negative. Blood pressure decreased after IV hydralazine, labetalol, and transdermal Nitropaste. Discussed with Dr. Davalos, hospitalist, he accepts admission for further evaluation and care.. Electronically signed by Sivan [facility] Conversion Splicing Machine Operator Automatic Cerner at 02/04/2023 2:16 PM CDT documented in this encounter Plan of Treatment Not on file documented as of this encounter Visit Diagnoses Not on filedocumented in this encounter Care Teams Revenue Accounting Manager Relationship Specialty Start Date End Date Jay Howell MD [address] [place] [phone] PCP - General Emergency Medicine 11/12/23 documented as of this encounter
--- OUTSIDE RECORDS SUMMARY | 2025-07-28 09:12 | XMS_ITS | Encounter Summary ---
Author Organization [employer] ([place], [place], [place]) Address [address] [place] [address] Care Team Providers Care Photographic Colorist Name Role Phone Jay Howell MD Primary Care Provider [phone] Encounter Details Date Type Department Care Team (Late st Contact Info) Description 03/16/2021 Transcribed Document [facility] [place] [facility] [place] [address] ProviderJessie MD [address] [place] [phone] Social History Tobacco Use Types Packs/Day Years [...] version of the form. Electronically signed by Abel Finnegan Conversion Fast Food Assistant Restaurant Manager Cerner at 02/06/2023 12:48 PM CDT documented in this encounter Plan of Treatment Not on file documented as of this encounter Visit Diagnoses Not on filedocumented in this encounter Care Teams Photographic Colorist Relationship Specialty Start Date End Date Jay Howell MD [address] [place] [phone] PCP - General Emergency Medicine 11/12/23 documented as of this encounter
--- OUTSIDE RECORDS SUMMARY | 2025-07-28 09:12 | XMS_ITS | Encounter Summary ---
Author Organization [employer] ([place], [place], [place], [place]) Address [address] [place] [address] Care Team Providers Care Control Operator Flow Coat Name Role Phone Jay Howell MD Primary Care Provider [phone] Encounter Details Date Type Department Care Team (Late st Contact Info) Description 06/13/2020 Transcribed Document [facility] [place] [address] [place] [address] ProviderJessie MD [address] [place] [address] Social History Tobacco Use Types Packs/Day Years [...] on filedocumented in this encounter Care Teams Control Operator Flow Coat Relationship Specialty Start Date End Date Jay Howell MD [address] [place] [phone] PCP - General Emergency Medicine 11/12/23 documented as of this encounter
--- OUTSIDE RECORDS SUMMARY | 2025-07-28 09:12 | XMS_ITS | Encounter Summary ---
Author Organization [employer] ([place], [place], [place], [place]) Address [address] [place] [address] Care Team Providers Care Scraper Burrer Name Role Phone Jay Howell MD Primary Care Provider [phone] Encounter Details Date Type Department Care Team (Late st Contact Info) Description 03/16/2021 Transcribed Document [facility] [place] [facility] [place] [address] ProviderJessie MD [address] [place], [place] [address] Social History Tobacco Use Types Packs/Day Years [...] Communication Barrier : None Primary Language : French Any Spiritual/Cultural Needs or Requests : No [...] WDL : WDL with exceptions (Comment: Dizziness FURNACE CARETAKER, states that she passed out and the room was spinning [Viri Gonsales RN - 03/16/2021 12:57 EDT] ) Viri Gonsales RN - 03/16/2021 12:57 EDT Electronically signed by [facility] Conversion Vinyl Flooring Installer Cerner at 02/04/2023 2:07 PM CDT documented in this encounter Plan of Treatment Not on file documented as of this encounter Visit Diagnoses Not on filedocumented in this encounter Care Teams Scraper Burrer Relationship Specialty Start Date End Date Jay Howell MD [address] [place] [phone] PCP - General Emergency Medicine 11/12/23 documented as of this encounter
--- OUTSIDE RECORDS SUMMARY | 2025-07-28 09:12 | XMS_ITS | Encounter Summary ---
Author Organization [employer] ([place], [place], [place], [place]) Address [address] [place] [address] Care Team Providers Care Sales Ambassador Name Role Phone Jay Howell MD Primary Care Provider [phone] Encounter Details Date Type Department Care Team (Late st Contact Info) Description 03/16/2021 Transcribed Document [facility] [place] [address] [place] [address] ProviderJessie MD [address] [place], [place] [address]881 Social History Tobacco Use Types Packs/Day Years [...] filedocumented in this encounter Care Teams Sales Ambassador Relationship Specialty Start Date End Date Jay Howell MD [address] [place] [phone] PCP - General Emergency Medicine 11/12/23 documented as of this encounter
--- OUTSIDE RECORDS SUMMARY | 2025-07-28 09:12 | XMS_ITS | Encounter Summary ---
Author Organization [employer] ([place], [place], [place], [place]) Address [address] [place] [address] Care Team Providers Care Waistline Joiner Lockstitch Name Role Phone Jay Howell MD Primary Care Provider [phone] Encounter Details Date Type Department Care Team (Late st Contact Info) Description 06/13/2020 Transcribed Document [facility] [place] [address] [place] [address] ProviderJessie MD [address] [place] [address] Social History Tobacco Use Types Packs/Day Years [...] 06/13/2020 9:00 EDT by Joya Amaya [facility] Phone Call for Consults Consult Phone Call/Page Attempt : First call Consult Reason : chest pain Physician Requesting Consult : SMILEY ZAMORA MD Physician Requested for Consult : FREDY YAÑEZ MD-CAR Provider Service Notified Name : Cardiology Physician Covering for Consult : FREDY YAÑEZ MD-CAR Date and Time Call Returned : 06/13/2020 9:31 EDT Joya Amaya [facility] - 06/13/2020 10:00 EDT documented in this encounter Plan of Treatment Not on file documented as of this encounter Visit Diagnoses Not on filedocumented in this encounter Care Teams Waistline Joiner Lockstitch Relationship Specialty Start Date End Date Jay Howell MD [address] [place] [phone] PCP - General Emergency Medicine 11/12/23 documented as of this encounter
--- OUTSIDE RECORDS SUMMARY | 2025-07-28 09:12 | XMS_ITS | Encounter Summary ---
Author Organization [employer] ([place], [place], [place], [place]) Address [address] [place] [address] Care Team Providers Care Revenue Enforcement Agent Name Role Phone Jay Howell MD Primary Care Provider [phone] Encounter Details Date Type Department Care Team (Late st Contact Info) Description 06/13/2020 Transcribed Document [facility] [place] [address] [place] [address] ProviderJessie MD [address] [place] [address] Social History Tobacco Use Types Packs/Day Years [...] Problem list: Medical Arthritis / SNOMED CT 6755923 / Confirmed Atrial fibrillation with RVR / SNOMED CT 2634528283 / Confirmed Cataract / Patient Care / Confirmed Chest pain / SNOMED CT 13315977 / Complaint of COPD / SNOMED CT 95736691 / Confirmed Coronary artery disease / SNOMED CT 9523921614 / Confirmed Diabetes mellitus / SNOMED CT 827694209 / Confirmed GERD - Gastro-esophageal reflux disease / SNOMED CT 2217761485 / Confirmed Glaucoma / Patient Care / Confirmed Chronic anticoagulation / SNOMED CT 133331873 / Confirmed Hx of pulmonary embolus / SNOMED CT 674118071 / Confirmed High blood pressure / SNOMED CT 68795594 / Confirmed History of obstructive sleep apnea / IMO 05165653 / Confirmed Hyperlipidemia / SNOMED CT 09328943 / Confirmed Multiple renal cysts / SNOMED CT 664827307 / Confirmed Emphysema / SNOMED CT 070997973 / Confirmed Apnea, sleep / SNOMED CT 553270230 / Confirmed Stented coronary artery / SNOMED CT 5886437750 / Confirmed UTI - Urinary tract infection / SNOMED CT 0071064354 / Confirmed, Active Problems (21) Apnea, sleep [...] 36mins Electronically signed by Interface, [facility] Conversion Edger Saw Operator Cerner at 02/04/2023 2:21 PM CDT documented in this encounter Plan of Treatment Not on file documented as of this encounter Visit Diagnoses Not on filedocumented in this encounter Care Teams Revenue Enforcement Agent Relationship Specialty Start Date End Date Jay Howell MD [address] [place] [phone] PCP - General Emergency Medicine 11/12/23 documented as of this encounter
--- OUTSIDE RECORDS SUMMARY | 2025-07-28 09:12 | XMS_ITS | Encounter Summary ---
Author Organization [employer] ([place], [place], [place], [place]) Address [address] [place] [address] Care Team Providers Care Creative Writing Teacher Name Role Phone Jay Howell MD Primary Care Provider [phone] Encounter Details Date Type Department Care Team (Late st Contact Info) Description 06/12/2020 Transcribed Document [facility] [place] [address] [place] [address] ProviderJessie MD [address] [place] [address] Social History Tobacco Use Types Packs/Day Years [...] : 2 - Emergent Tracking Group : [facility] ED Roni Peralta RN - 06/12/2020 21:31 [...] 21:35:03 EDT) Problems(Active) Apnea, sleep (SNOMED CT :495366800 ) Name of Problem: Apnea, sleep ; Recorder: JUAN LUIS GIL RN; Confirmation: Confirmed ; Classification: Medical ; Code: 113995593 ; Contributor System: PowerChart ; Last Updated: 11/12/2014 10:12 EST ; Life Cycle Date: 11/12/2014 ; Life Cycle Status: Active ; Vocabulary: SNOMED CT Arthritis (SNOMED CT :3243561 ) Name of Problem: Arthritis ; Recorder: KENYON CHAMBERS RN; Confirmation: Confirmed ; Classification: Medical ; Code: 9200332 ; Contributor System: PowerChart ; Last Updated: 04/10/2016 8:04 EDT ; Life Cycle Date: 08/13/2013 ; Life Cycle Status: Active ; Vocabulary: SNOMED CT Atrial fibrillation with RVR (SNOMED CT :4908986297 ) Name of Problem: Atrial fibrillation with RVR ; Recorder: SANG RICO APRN; Confirmation: Confirmed ; Classification: Medical ; Code: 1538031515 ; Contributor System: PowerChart ; Last Updated: 04/10/2016 8:05 EDT ; Life Cycle Date: 04/10/2016 ; Life Cycle Status: Active ; Responsible Provider: SANG RICO APRN; Vocabulary: SNOMED CT Blood clot (SNOMED CT :505825175 ) Name of Problem: Blood clot ; Recorder: KENYON CHAMBERS RN; Confirmation: Confirmed ; Classification: Patient Stated ; Code: 127679901 ; Contributor System: PowerChart ; Last Updated: 04/02/2014 11:08 EDT ; Life Cycle Date: 08/13/2013 ; Life Cycle Status: Active ; Vocabulary: SNOMED CT Cataract (Patient Care : ) Name of Problem: Cataract ; Recorder: KENYNO CHAMBERS RN; Confirmation: Confirmed ; Classification: Medical ; Contributor System: PowerChart ; Last Updated: 04/10/2016 8:03 EDT ; Life Cycle Date: 08/13/2013 ; Life Cycle Status: Active ; Vocabulary: Patient Care Chest pain (SNOMED CT :17908987 ) Name of Problem: Chest pain ; Recorder: SANG RICO APRN; Confirmation: Complaint of ; Classification: Medical ; Code: 75427431 ; Contributor System: PowerChart ; Last Updated: 04/10/2016 8:05 EDT ; Life Cycle Status: Active ; Responsible Provider: SANG RICO APRN; Vocabulary: SNOMED CT Chronic anticoagulation (SNOMED CT :680705971 ) Name of Problem: Chronic anticoagulation ; Recorder: SANG RICO APRN; Confirmation: Confirmed ; Classification: Medical ; Code: 339665894 ; Contributor System: PowerChart ; Last Updated: 04/10/2016 8:05 EDT ; Life Cycle Date: 04/10/2016 ; Life Cycle Status: Active ; Responsible Provider: SANG RICO APRN; Vocabulary: SNOMED CT Clotting disorder (SNOMED CT :421961221 ) Name of Problem: Clotting disorder ; Recorder: KENYON CHAMBERS RN; Confirmation: Confirmed ; Classification: Patient Stated ; Code: 894234884 ; Contributor System: PowerChart ; Last Updated: 03/28/2014 19:29 EDT ; Life Cycle Date: 08/13/2013 ; Life Cycle Status: Active ; Vocabulary: SNOMED CT COPD (SNOMED CT :02567765 ) Name of Problem: COPD ; Recorder: KENYON CHAMBERS RN; Confirmation: Confirmed ; Classification: Medical ; Code: 71551145 ; Contributor System: PowerChart ; Last Updated: 04/10/2016 8:03 EDT ; Life Cycle Date: 08/13/2013 ; Life Cycle Status: Active ; Vocabulary: SNOMED CT Coronary artery disease (SNOMED CT :6362405711 ) Name of Problem: Coronary artery disease ; Recorder: KENYON CHAMBERS RN; Confirmation: Confirmed ; Classification: Medical ; Code: 7822689355 ; Contributor System: PowerChart ; Last Updated: 04/10/2016 8:03 EDT ; Life Cycle Date: 08/13/2013 ; Life Cycle Status: Active ; Vocabulary: SNOMED CT Diabetes mellitus (SNOMED CT :733663833 ) Name of Problem: Diabetes mellitus ; Recorder: KENYON CHAMBERS RN; Confirmation: Confirmed ; Classification: Medical ; Code: 937062995 ; Contributor System: PowerChart ; Last Updated: 04/10/2016 8:04 EDT ; Life Cycle Date: 08/13/2013 ; Life Cycle Status: Active ; Vocabulary: SNOMED CT Emphysema (SNOMED CT :865711374 ) Name of Problem: Emphysema ; Recorder: JUAN LUIS GIL RN; Confirmation: Confirmed ; Classification: Medical ; Code: 965344941 ; Contributor System: PowerChart ; Last Updated: 11/12/2014 10:11 EST ; Life Cycle Date: 11/12/2014 ; Life Cycle Status: Active ; Vocabulary: SNOMED CT GERD - Gastro-esophageal reflux disease (SNOMED CT :5873657726 ) Name of Problem: GERD - Gastro-esophageal reflux disease ; Recorder: KENYON CHAMBERS RN; Confirmation: Confirmed ; Classification: Medical ; Code: 1064267914 ; Contributor System: PowerChart ; Last Updated: [...] Patient Care High blood pressure (SNOMED CT :02138268 ) Name of Problem: High blood pressure ; Recorder: KENYON CHAMBERS RN; Confirmation: Confirmed ; Classification: Medical ; Code: 07029476 ; Contributor System: PowerChart ; Last Updated: 04/10/2016 8:03 EDT ; Life Cycle Date: 08/13/2013 ; Life Cycle Status: Active ; Vocabulary: SNOMED CT History of obstructive sleep apnea (IMO :04263568 ) Name of Problem: History of obstructive sleep apnea ; Recorder: SYSTEM, SYSTEM; Confirmation: Confirmed ; Classification: Medical ; Code: 82828395 ; Last Updated: 12/20/2018 12:01 EST ; Life Cycle Date: 12/20/2018 ; Life Cycle Status: Active ; Vocabulary: IMO Hx of pulmonary embolus (SNOMED CT :955457476 ) Name of Problem: Hx of pulmonary embolus ; Recorder: SANG RICO APRN; Confirmation: Confirmed ; Classification: Medical ; Code: 216919765 ; Contributor System: PowerChart ; Last Updated: 04/10/2016 8:05 EDT ; Life Cycle Date: 04/10/2016 ; Life Cycle Status: Active ; Responsible Provider: SANG RICO APRN; Vocabulary: SNOMED CT Hyperlipidemia (SNOMED CT :89959327 ) Name of Problem: Hyperlipidemia ; Recorder: KENYON CHAMBERS RN; Confirmation: Confirmed ; Classification: Medical ; Code: 15593961 ; Contributor System: [employer]med[employer]Chart ; Last Updated: 04/10/2016 8:03 EDT ; Life Cycle Date: 08/13/2013 ; Life Cycle Status: Active ; Vocabulary: SNOMED CT Multiple renal cysts (SNOMED CT :584801475 ) Name of Problem: Multiple renal cysts ; Recorder: KENYON CHAMBERS RN; Confirmation: Confirmed ; Classification: Medical ; Code: 512290015 ; Contributor System: PowerChart ; Last Updated: 04/10/2016 8:04 EDT ; Life Cycle Date: 08/13/2013 ; Life Cycle Status: Active ; Vocabulary: SNOMED CT Stented coronary artery (SNOMED CT :2752782005 ) Name of Problem: Stented coronary artery ; Recorder: KENYON CHAMBERS RN; Confirmation: Confirmed ; Classification: Medical ; Code: 8179761895 ; Contributor System: PowerChart ; Last Updated: 04/10/2016 8:03 EDT ; Life Cycle Date: 08/13/2013 ; Life Cycle Status: Active ; Vocabulary: SNOMED CT UTI - Urinary tract infection (SNOMED CT :3267284246 ) Name of Problem: UTI - Urinary tract infection ; Recorder: KENYON CHAMBERS RN; Confirmation: Confirmed ; Classification: Medical ; Code: 6182439686 ; Contributor System: PowerChart ; Last Updated: 04/10/2016 8:04 EDT ; Life Cycle Date: 08/13/2013 ; Life Cycle Status: Active ; Vocabulary: SNOMED CT Diagnoses(Active) Chest pain Date: 06/12/2020 ; Diagnosis Type: Reason For Visit ; Confirmation: Complaint of ; Clinical Dx: Chest pain ; Classification: Medical ; Clinical Service: Emergency medicine ; Code: PNED ; Probability: 0 ; Diagnosis Code: [id number] ED Height and Weight Height Source : Stated Height Entry Format : [place] Height, Feet : 5 ft(Converted to: 152 cm, 60 Inch) Height, Inches : 3 Inch(Converted to: 0 ft 3 Inch, 7.62 cm) Clinical Height : 160.02 cm Weight Source, ED : Critical estimated dosing weight Weight Entry Format : [place] Weight, Pounds : 161 lb Clinical Dosing Weight : 73.18 kg Body Surface Area (BSA) : 1.77 m2 Body Mass Index : 28.6 kg/m2 (HI) [place] Body Weight (IBW) : 52.02 kg Roni Peralta RN - 06/12/2020 21:31 EDT documented in this encounter Plan of Treatment Not on file documented as of this encounter Visit Diagnoses Not on filedocumented in this encounter Care Teams Creative Writing Teacher Relationship Specialty Start Date End Date Jay Howell MD [address] [place] [phone] PCP - General Emergency Medicine 11/12/23 documented as of this encounter
--- OUTSIDE RECORDS SUMMARY | 2025-07-28 09:12 | XMS_ITS | Encounter Summary ---
Author Organization [employer] ([place], [place], [place], [place]) Address [address] [place] [address] Care Team Providers Care Pencil Maker Name Role Phone Jay Howell MD Primary Care Provider [phone] Encounter Details Date Type Department Care Team (Late st Contact Info) Description 06/13/2020 Transcribed Document [facility] [place] Family Medicine [address] [place] [address] ProviderJessie MD [address] [place] [address] Social History Tobacco Use Types Packs/Day Years [...] Insurance 1 Health Plan: MEDICARE Policy Number: [id number] Authorization Number: Insurance 2 Health Plan: A[employer] N Policy Number: [id number] Authorization Number: Insurance Primary Name : MEDICARE Policy Number: [id number] Authorized Service Begin Date-Primary : 06/12/2020 EDT Historical Authorization Comments-Primary : No Authorization Comments Found MARILYNN RAMÍREZ, RN-Utilization Review - 06/13/2020 9:06 EDT Electronically signed by Sivan [facility] Conversion Graphic Design Manager Cerner at 02/04/2023 2:21 PM CDT documented in this encounter Plan of Treatment Not on file documented as of this encounter Visit Diagnoses Not on filedocumented in this encounter Care Teams Pencil Maker Relationship Specialty Start Date End Date Jay Howell MD [address] [place] [phone] PCP - General Emergency Medicine 11/12/23 documented as of this encounter
--- OUTSIDE RECORDS SUMMARY | 2025-07-28 09:12 | XMS_ITS | Encounter Summary ---
Author Organization [employer] ([place], [place], [place], [place]) Address [address] [place] [address] Care Team Providers Care Mechanical Press Operator Name Role Phone Jay Howell MD Primary Care Provider [phone] Encounter Details Date Type Department Care Team (Late st Contact Info) Description 06/13/2020 Transcribed Document [facility] [place] Family Medicine [address] [place] [address] ProviderJessie MD [address] [place] [address] Social History Tobacco Use Types Packs/Day Years [...] filedocumented in this encounter Care Teams Mechanical Press Operator Relationship Specialty Start Date End Date Jay Howell MD [address] [place] [phone] PCP - General Emergency Medicine 11/12/23 documented as of this encounter
--- OUTSIDE RECORDS SUMMARY | 2025-07-28 09:12 | XMS_ITS | Encounter Summary ---
Author Organization [place] [address] Care Team Providers Care Furrier Designer Name Role Phone No Pcp, Per Patient Primary Care Provider Evelyne prabhakar Reason for Visit * Reason Onset Date Comments Appointment Needed 06/28/2025 Encounter Details Date Type Department Care Team (Late st Contact Info) Description 06/28/2025 Telephone [facility] [address] [place] [address] Sukh Garner, DO [address] [place], [place] [id number] Appointment Needed Social History Tobacco Use Types Packs/Day Years Used Date Smoking Tobacco: Former Cigarettes Q uit: 1991 Passive Smoke Exposure: Past Smokeless Tobacco: Never Alcohol Use Standard Drinks/Week Comments Not Currently 0 (1 standard drink = 0.6 oz pur e alcohol) [facility] Utilities Answer Date Recorded In the past 12 months has [place] electric, gas, oil, or water company threatened to shut off services in your home? No 06/23/2025 Overall Financial Resource Strain (CARDIA) Answe r Date Recorded How hard is it for you to pa y for the very basics like food, housing, medical care, and heating? Not very hard 06/23/2025 PHQ-2 Answer Date Recorded PHQ-2 Total Score 0 06/23/2025 [facility] - Occupational Stress [...] money to get more. Never true 06/23/2025 [facility] IP Transportation Answer D ate Recorded In [...] book for HFU until August Appointment [facility]: [facility] Call back number: [phone] (sister, goes by Sarah) documented in this encounter Plan of Treatment Upcoming Encounters Date Type Department Care Team (Late st Contact Info) Description 08/05/2025 3:45 PM EDT Office Visit [facility] [address] [place] [address] Drive [address] [place] [address] Vargas Wolf MD [address] [place] [phone] documented as of this encounter Visit Diagnoses Not on filedocumented in this encounter Additional Health Concerns Infection Onset Date Last Indicated Resolved Time ESBL organism Comment:ESBL urine: 05/23, 06/1205/23/2025 06/12/2025 Assessment Noted Time A fall risk assessment has been complete d for the patient 02/08/2025 11:32 AM EDT documented as of this encounter Care Teams Furrier Designer Relationship Specialty Start Date End Date No Pcp, Per Patient PCP - General 06/04/24 documented as of this encounter
--- OUTSIDE RECORDS SUMMARY | 2025-07-28 09:12 | XMS_ITS | Encounter Summary ---
Author Organization [employer] ([place], [place], [place], [place]) Address [address] [place] [address] Care Team Providers Care Bull Riveter Name Role Phone Jay Howell MD Primary Care Provider [phone] Encounter Details Date Type Department Care Team (Late st Contact Info) Description 06/13/2020 Transcribed Document [facility] [place] Family Medicine [address] [place] [address] ProviderJessie MD [address] [place] [address] Social History Tobacco Use Types Packs/Day Years [...] MD-CAR Basic Information PCP: Avtar Moeller MD Reading Aide: Stephania Garcia MD Chief Complaint Chest pain History of Present Illness 79 year old female with history of CAD s/p CABG (1992) and subsequent stents in 2007 [id number], Paroxysmal atrial fibrillation and prior PE on [...] mg tab 2 mg 1 Tab, [facility] tab 3 mg [...] History: Active Cataract Glaucoma Coronary artery disease (7943338261) Stented coronary artery (7101112014) High blood pressure (53305470) Hyperlipidemia (22973984) COPD (43231217) GERD - Gastro-esophageal reflux disease (7038299699) Multiple renal cysts (409434865) UTI - Urinary tract infection (0210696455) Arthritis (9524508) Diabetes mellitus (601680547) Emphysema (510625910) Apnea, sleep (584039095) Hx of pulmonary embolus (468168635) Chronic anticoagulation (426392142) Atrial fibrillation with RVR (8169184411) Family History: Cardiomyopathy Child Stroke Brother Heart attack Brother Sister Leukemia Child Cancer Father Mother Sister Coronary heart disease Child Procedure history: Cardiac Stent in 2010 at 70 Years. Coronary artery bypass graft (519622902) in 1992 at 52 Years. femur repair. Appendectomy (480658377). uterine suspension. Hysterectomy (385822088). back surgury. Cholecystectomy (64178168). Hip replacement (9964712437). cataract surgury. Physical Examination VS/Measurements Vitals Signs [...] of motion, Normal strength. Integumentary: Warm, Dry, [place]. Neurologic: Alert, Oriented. Psychiatric: Cooperative, Appropriate mood [...] 24 Hours) Radiology Results (Last 48 hours) [id number] -- 06/12/2020 23:54 CR Chest 1 Vw [...] <0.015 (JUN 13) <0.015 (JUN 12) . [facility] IMPRESSION: Angiographically, the patient has severe [...] on filedocumented in this encounter Care Teams Bull Riveter Relationship Specialty Start Date End Date Jay Howell MD [address] [place] [phone] PCP - General Emergency Medicine 11/12/23 documented as of this encounter
--- OUTSIDE RECORDS SUMMARY | 2025-07-28 09:12 | XMS_ITS | Encounter Summary ---
Author Organization [employer] ([place], [place], [place], [place]) Address [address] [place] [address] Care Team Providers Care Diabetes Manager Name Role Phone Jay Howell MD Primary Care Provider [phone] Encounter Details Date Type Department Care Team (Late st Contact Info) Description 03/16/2021 Transcribed Document [facility] [place] [address] [place] [address] ProviderJessie MD [address] [place] [address] Social History Tobacco Use Types Packs/Day Years [...] EDT - EVA WESLEY RN PCI w/ Mouthcard stent to D1 Coronary artery bypass graft (280064488) in 1992 at 52 Years. femur repair. Appendectomy (046907503). uterine suspension. Hysterectomy (358472979). back surgury. Cholecystectomy (92841098). Hip replacement (1863866115). cataract surgury.. Family history: Cardiomyopathy Child Stroke [...] EDT Height Source Stated Height Entry Format Louisa Height/Length, GREEK (ft) 5 ft Height/Length GREEK 3 Inch CLINICALHEIGHT 160.02 cm [place] Body Weight 52.02 kg Weight Source, ED Critical estimated dosing weight Weight Entry Format Louisa Weight Swedish lb 158 lb CLINICALWEIGHT 71.82 kg Body [...] Triage: ED C-SSRS: ED Clinical Reconciliation: ED supervisor major appliance assembly: Lactic Acid Level with Reflex if Indicated: Lipase Level: Normal Saline Bolus: 500 mL, 500 mL/Hr, IV Piggyback, 1-Time PT/INR Prothrombin Time: PTT: Saline Lock Insert: Troponin I Ultra: Urinalysis UA Rflx Microscopic Cult if Ind: Zofran: 4 mg, IV Push, 1-Time. property assessment monitor: Normal sinus rhythm. Electrocardiogram: Time 03/16/2021 11:38:00, rate 59, normal sinus rhythm, No ST changes, no ectopy, normal OK & QRS intervals, EP Interp. Results review: All Results 03/16/2021 14:09 EDT Urine Type. U CleanCatch Urine Color Yellow Urine Appearance Clear Urine Specific [place] 1.014 Urine pH Dipstick 5.5 LOW Urine [...] 15.6 % LOW Lymph # 1.52 x10(3)/uL Glenn % 5.1 % Glenn # 0.50 K/uL Eos % 0.0 % Eos # 0.00 x10(3)/uL Baso % 0.3 % Baso # 0.03 x10(3)/uL Slide Review No IG# 0.06 x10(3)/uL HI IG% 0.60 % . Radiology results: Radiology Results (Last 48 hours) [id number] -- 03/16/2021 11:24 CR Hip Uni Comp [...] Care: Telemetry unit, Admitting: MARIA ELENA DAVALOS MD-[facility], Launch Orders Consults: Consult to Physician (Order): Start: 03/16/2021 15:29 EDT, Consult to: SAMANTHA PINA MD-ORT, For right wrist fracture, Tyre Fitter Notified by Physician, Group/Instructions: [facility]. Notes: I certify that the MLP/EMERGENCY PLANNING AND RESPONSE MANAGER performed the services as delegated. . Electronically signed by Sivan [facility] Conversion Main Line Assembler Cerner at 02/04/2023 1:57 PM CDT documented in this encounter Plan of Treatment Not on file documented as of this encounter Visit Diagnoses Not on filedocumented in this encounter Care Teams Diabetes Manager Relationship Specialty Start Date End Date Jay Howell MD [address] [place] [phone] PCP - General Emergency Medicine 11/12/23 documented as of this encounter
--- OUTSIDE RECORDS SUMMARY | 2025-07-28 09:12 | XMS_ITS | Encounter Summary ---
Author Organization [employer] ([place], [place], [place], [place]) Address [address] [place] [address] Care Team Providers Care Contract Mail Carrier Name Role Phone Jay Howell MD Primary Care Provider [phone] Encounter Details Date Type Department Care Team (Late st Contact Info) Description 06/13/2020 Transcribed Document [facility] [place] Family Medicine [address] [place] [address] ProviderJessie MD [address] [place] [address] Social History Tobacco Use Types Packs/Day Years [...] 06/13/2020 15:38 EDT Electronically signed by Sivan [facility] Conversion Material Spreader Cerner at 02/04/2023 2:14 PM CDT documented in this encounter Plan of Treatment Not on file documented as of this encounter Visit Diagnoses Not on filedocumented in this encounter Care Teams Contract Mail Carrier Relationship Specialty Start Date End Date Jay Howell MD [address] [place] [phone] PCP - General Emergency Medicine 11/12/23 documented as of this encounter
--- OUTSIDE RECORDS SUMMARY | 2025-07-28 09:12 | XMS_ITS | Encounter Summary ---
Author Organization [employer] ([place], [place], [place], [place]) Address [address] [place] [address] Care Team Providers Care Spring Tacker Name Role Phone Jay Howell MD Primary Care Provider [phone] Encounter Details Date Type Department Care Team (Late st Contact Info) Description 06/13/2020 Transcribed Document [facility] [place] Family Medicine [address] [place] [address] ProviderJessie MD [address] [place] [address] Social History Tobacco Use Types Packs/Day Years [...] Ms. Montoya reported she would call for loan servicing representative if/when she decides to complete one FARHANA PATEL - 06/13/2020 12:16 EDT documented in this encounter Plan of Treatment Not on file documented as of this encounter Visit Diagnoses Not on filedocumented in this encounter Care Teams Spring Tacker Relationship Specialty Start Date End Date Jay Howell MD [address] [place] [phone] PCP - General Emergency Medicine 11/12/23 documented as of this encounter
--- OUTSIDE RECORDS SUMMARY | 2025-07-28 09:12 | XMS_ITS | Encounter Summary ---
Author Organization [employer] ([place], [place], [place], [place]) Address [address] [place] [address] Care Team Providers Care Agronomy Internship Name Role Phone Jay Howell MD Primary Care Provider [phone] Encounter Details Date Type Department Care Team (Late st Contact Info) Description 06/13/2020 Transcribed Document [facility] [place] [address] [place] [address] ProviderJessie MD [address] [place] [address] Social History Tobacco Use Types Packs/Day Years [...] on filedocumented in this encounter Care Teams Agronomy Internship Relationship Specialty Start Date End Date Jay Howell MD [address] [place] [phone] PCP - General Emergency Medicine 11/12/23 documented as of this encounter
--- OUTSIDE RECORDS SUMMARY | 2025-07-28 09:14 | XMS_ITS | Encounter Summary ---
Author Organization [employer] ([place], [place], [place], [place]) Address [address] [place] [address] Care Team Providers Care Payroll Master Name Role Phone Jay Howell MD Primary Care Provider [phone] Encounter Details Date Type Department Care Team (Late st Contact Info) Description 06/13/2020 Transcribed Document [facility] [place] Family Medicine [address] [place] [address] ProviderJessie MD [address] [place] [address] Social History Tobacco Use Types Packs/Day Years [...] on filedocumented in this encounter Care Teams Payroll Master Relationship Specialty Start Date End Date Jay Howell MD [address] [place] [phone] PCP - General Emergency Medicine 11/12/23 documented as of this encounter
--- OUTSIDE RECORDS SUMMARY | 2025-07-28 09:14 | XMS_ITS | Encounter Summary ---
Author Organization [employer] ([place], [place], [place], [place]) Address [address] [place] [address] Care Team Providers Care Bus Person Dishwasher Name Role Phone Jay Howell MD Primary Care Provider [phone] Encounter Details Date Type Department Care Team (Late st Contact Info) Description 06/13/2020 Transcribed Document [facility] [place] [address] [place] [address] ProviderJessie MD [address] [place] [address] Social History Tobacco Use Types Packs/Day Years [...] 06/13/2020 6:12 EDT Electronically signed by Sivan [facility] Conversion Medical Billing Coordinator Cerner at 02/04/2023 2:05 PM CDT documented in this encounter Plan of Treatment Not on file documented as of this encounter Visit Diagnoses Not on filedocumented in this encounter Care Teams Bus Person Dishwasher Relationship Specialty Start Date End Date Jay Howell MD [address] [place] [phone] PCP - General Emergency Medicine 11/12/23 documented as of this encounter
--- OUTSIDE RECORDS SUMMARY | 2025-07-28 09:14 | XMS_ITS | Encounter Summary ---
Author Organization [employer] ([place], [place], [place], [place]) Address [address] [place] [address] Care Team Providers Care Broadcast Maintenance Engineer Name Role Phone Jay Howell MD Primary Care Provider [phone] Encounter Details Date Type Department Care Team (Late st Contact Info) Description 06/13/2020 Transcribed Document [facility] [place] [address] [place] [address] ProviderJessie MD [address] [place] [address] Social History Tobacco Use Types Packs/Day Years [...] on RA. FSBS noted. Fall team and GREENKEEPER team notified but they were in another GREENKEEPER call. PT feels clammy and light headed [...] 06/13/2020 16:24 EDT Electronically signed by Sivan [facility] Conversion Certified Court Interpreter Cerner at 02/04/2023 2:04 PM CDT documented in this encounter Plan of Treatment Not on file documented as of this encounter Visit Diagnoses Not on filedocumented in this encounter Care Teams Broadcast Maintenance Engineer Relationship Specialty Start Date End Date Jay Howell MD [address] [place] [phone] PCP - General Emergency Medicine 11/12/23 documented as of this encounter
--- OUTSIDE RECORDS SUMMARY | 2025-07-28 09:14 | XMS_ITS | Encounter Summary ---
Author Organization [employer] ([place], [place], [place]) Address [address] [place] [address] Care Team Providers Care Procurement Professional Name Role Phone Jay Howell MD Primary Care Provider [phone] Encounter Details Date Type Department Care Team (Late st Contact Info) Description 06/13/2020 Transcribed Document [facility] [place] Family [place] [address] [place] [address] ProviderJessie MD [address] [place] [address] Social History Tobacco Use Types Packs/Day Years [...] Ministry Provided to : Patient, Family/Significant other Pentecostal Preference : Jain FARHANA PATEL - 06/13/2020 12:13 EDT Interventions Advance Directive Information Provided : Yes Advance Directive Comment : Discussed Living Will; Ms. Montoya requested information only; Gave copy of Personal Choices booklet; Ms. Montoya reported she would call for shed boss if/when she decides to complete one Emotional Support : Empathic/Engaged listening, Family/Significant other supported, Feelings expressed, Information provided Spiritual and Pentecostal : Spiritual/Pentecostal support provided Change, Adjustment and Loss : [...] 06/13/2020 12:13 EDT Electronically signed by Sivan [facility] Conversion Investigator Narcotics Cerner at 02/04/2023 2:00 PM CDT documented in this encounter Plan of Treatment Not on file documented as of this encounter Visit Diagnoses Not on filedocumented in this encounter Care Teams Procurement Professional Relationship Specialty Start Date End Date Jay Howell MD [address] [place] [phone] PCP - General Emergency Medicine 11/12/23 documented as of this encounter
--- OUTSIDE RECORDS SUMMARY | 2025-07-28 09:14 | XMS_ITS | Clinical Summary ---
Author Organization [facility] Address [facility] [place] [address] Phone Care Team Providers Care Activity Specialist Name Role Phone No Pcp, Per Patient Primary Care Provider Evelyne prabhakar Allergies Active Allergy Reactions Criticality Noted Date Comments Lidocaine Rash High 06/05/2024 Morphine Other (See Comments) 03/02/2024 Nitrofurantoin Rash High 03/02/2024 Medications acetaminophen (TYLENOL) 500 mg Oral Tablet Take 1,000 mg by mouth every 6 hours. 03/23/20 24 Active Calcium Carbonate (ANTACID ULTRA STRENGTH) 400 mg calcium (1,000 mg) Oral Tablet, Chewable Take 1,000 mg by mouth daily. 03/23/20 24 Active cyanocobalamin 1,000 mcg Oral Tablet Take 1,000 mcg by mouth daily. Active polyethylene glycol (GLYCOLAX, MIRALAX) 17 gram Oral Powder in Packet Take 17 g by mouth daily. 01/27/20 24 Active ranolazine (RANEXA) 500 mg Oral Tablet Sustained Release 12 hr Take 1,000 mg by mouth daily. 12/26/19 19 Active atorvastatin (LIPITOR) 40 mg Oral Tablet Take 40 mg by mouth nightly. Active nalOXone (NARCAN) 4 mg/actuation Nasl [place], Non-Aerosol 0.1 mL by Nasal route as needed for Opioid Reversal. [place] the contents of one device (0.1mL) into one nostril upon signs of opioid overdose. Call 911. May repeat dose in other nostril if no response within 2-3 minutes. 1 Each 02/05/20 25 Active pantoprazole (PROTONIX) 40 mg Oral Tablet, Delayed Release (E.C.) Take 1 Tablet by mouth 2 times daily. 60 Tablet 06/10/20 25 Active nortriptyline (PAMELOR) 10 mg Oral Capsule Take 1 Capsule by mouth nightly. 15 Capsule 06/10/20 Active latanoprost (XALATAN) 0.005 % Opht Drops Apply 1 Drop to eye nightly. 2.5 mL 06/10/20 Active lidocaine (ASPERCREME) 4 % Top Adhesive Patch, Medicated Place 1 Patch onto the skin daily. 15 Patch 06/11/20 Active dorzolamide-ti moloL (COSOPT) 22.3-6.8 mg/mL Opht Drops Place 1 Drop into both eyes nightly. instill 1 drop in both eyes at bedtime for glaucoma Active fUROsemide (LASIX) 40 mg Oral Tablet Take 1 Tablet by mouth daily for 30 days. 30 Tablet 06/29/20 25 Active levETIRAcetam (KEPPRA) 750 mg Oral Tablet Take 1 Tablet by mouth 2 times daily for 30 days. 60 Tablet 06/28/20 25 Active losartan (COZAAR) 25 mg Oral Tablet Take 1 Tablet by mouth daily for 30 days. 30 Tablet 06/29/20 25 025 Active metoprolol (LOPRESSOR) 25 mg Oral Tablet Take 1 Tablet by mouth 2 times daily for 30 days. 60 Tablet 06/28/20 25 Active carvediloL (COREG) 25 mg Oral Tablet Take 1 Tablet by mouth 2 times daily (with meals). 60 Tablet 06/10/20 25 025 Discontinu ed(Stop Taking at Discharge) fUROsemide (LASIX) 40 mg Oral Tablet Take 1 Tablet by mouth daily as needed for Other (edema, SOB). 30 Tablet 06/10/20 25 025 Discontinu ed(Stop Taking at Discharge) ertapenem sodium (ERTAPENEM INJ) Inject 1 g into the muscle daily. Ertapenem sodium injection solution reconstituted 1gm, inject 1 gm intramuscularly one time a day for UTI for seven days 06/18/20 025 Discontinu ed(Stop Taking at Discharge) gabapentin (NEURONTIN) 300 mg Oral Capsule Take 300 mg by mouth daily. Give 1 capsule by mouth one time a day for POLYNEUROPATHY 06/11/20 025 Discontinu ed(Stop Taking at Discharge) ALPRAZolam (XANAX) 0.5 mg Oral TabletIndicati ons:anxiety Take 0.5 mg by mouth nightly. give one tablet by mouth one time a day for anxiety disorder, unspecified Indications: anxious 025 Discontinu ed(Stop Taking at Discharge) gabapentin (NEURONTIN) 300 mg Oral Capsule Take 1 Capsule by mouth 3 times daily for 3 days. 9 Capsule 06/28/20 025 oxyCODONE (ROXICODONE) 5 mg Oral Tablet Take 1-2 Tablets by mouth every 4 hours as needed for Acute Pain (R52) for up to 3 days. 12 Tablet 06/28/20 025 Active Problems Problem Noted Date Diagnosed Date [...] 5:51 PM EDT): - transferred to MICU 8/ [...] 11:33 AM EDT): - transferred to MICU 8/ with hypotension and hypoxia - pulm edema on cxr - echo with EF 55-60%, indeterminate diastolic function, pulm pressure 41 mmHg - diuresis Assessment & Plan (06/07/2025 12:27 PM EDT): - transferred to MICU 8/ with hypotension and hypoxia - pulm edema on cxr - echo with EF 55-60%, indeterminate diastolic function, pulm pressure 41 mmHg - diuresis Assessment & Plan (06/06/2025 3:47 PM EDT): - transferred to MICU 8/ with hypotension and hypoxia - pulm edema on cxr - echo with EF 55-60%, indeterminate diastolic function, pulm pressure 41 mmHg - diuresis Assessment & Plan (06/05/2025 12:46 PM EDT): - [facility] with hypotension and hypoxia - pulm edema on cxr - echo with EF 55-60%, indeterminate diastolic function, pulm pressure 41 mmHg - diuresis Assessment & Plan (06/04/2025 1:59 PM EDT): - [facility]/ with hypotension and hypoxia - pulm edema on cxr - echo with EF 55-60%, indeterminate diastolic function, pulm pressure 41 mmHg - diuresis Assessment & Plan (06/03/2025 7:21 AM EDT): - transferred to MICU 8/10 with hypotension and hypoxia - pulm edema on cxr - echo with EF 55-60%, indeterminate diastolic function, pulm pressure 41 mmHg - diurese as below Assessment & Plan (06/02/2025 9:53 AM EDT): - transferred to MICU 8/10 with hypotension and hypoxia - pulm edema on cxr - echo with EF 55-60%, indeterminate diastolic function, pulm pressure 41 mmHg - diurese as below Assessment & Plan (06/01/2025 9:51 AM EDT): - transferred to MICU 8/10 with hypotension and hypoxia - pulm edema on cxr - echo with EF 55-60%, indeterminate diastolic function, pulm pressure 41 mmHg - limited diuresis due to below - on RA now Assessment & Plan (05/31/2025 8:02 AM EDT): - transferred to MICU 8/10 with hypotension and hypoxia - pulm edema on cxr - echo with EF 55-60%, indeterminate diastolic function, pulm pressure 41 mmHg - limited diuresis due to below - remains on 2L now Assessment & Plan (05/30/2025 11:39 AM EDT): - [facility]10 with hypotension and hypoxia - pulm edema on cxr - echo with EF 55-60%, indeterminate diastolic function, pulm pressure 41 mmHg - limited diuresis due to below - satting well now on 2L Assessment & Plan (05/29/2025 11:24 AM EDT): - transferred to MICU 8/10 with hypotension and hypoxia - pulm edema on cxr - echo with EF 55-60%, indeterminate diastolic function, pulm pressure 41 mmHg - limited diuresis due to below - satting well now on 2L Assessment & Plan (05/28/2025 8:08 AM EDT): - transferred to MICU 8/10 with hypotension and hypoxia - pulm [...] (06/06/2025 3:47 PM EDT): - transferred to MICU 05/26 with hypotension and hypoxia - pulm edema on cxr - echo with EF 55-60%, indeterminate diastolic function, pulm pressure 41 mmHg - diuresis Assessment & Plan (06/05/2025 12:46 PM EDT): - transferred to MICU 8/10 with hypotension and hypoxia - pulm edema on cxr - echo with EF 55-60%, indeterminate diastolic function, pulm pressure 41 mmHg - diuresis Assessment & Plan (06/04/2025 1:59 PM EDT): - transferred to MICU 8/10 with hypotension and hypoxia - pulm edema on cxr - echo with EF 55-60%, indeterminate diastolic function, pulm pressure 41 mmHg - diuresis Assessment & Plan (06/03/2025 7:21 AM EDT): - [facility] with hypotension and hypoxia - pulm edema on cxr - echo with EF 55-60%, indeterminate diastolic function, pulm pressure 41 mmHg - diurese as below Assessment & Plan (06/02/2025 9:53 AM EDT): - [facility]/ with hypotension and hypoxia - pulm edema on cxr - echo with EF 55-60%, indeterminate diastolic function, pulm pressure 41 mmHg - diurese as below Assessment & Plan (06/01/2025 9:51 AM EDT): - [facility]/ with hypotension and hypoxia - pulm edema on cxr - echo with EF 55-60%, indeterminate diastolic function, pulm pressure 41 mmHg - limited diuresis due to below - on RA now Assessment & Plan (05/31/2025 8:02 AM EDT): - transferred to MICU 8/10 with hypotension and hypoxia - pulm edema on cxr - echo with EF 55-60%, indeterminate diastolic function, pulm pressure 41 mmHg - limited diuresis due to below - remains on 2L now Assessment & Plan (05/30/2025 11:39 AM EDT): - transferred to MICU 8/ [...] AKA 88 - pain remains an issue. No better with AUTOMOTIVE [employer]ICIAN IN[employer]CTOR. Will stop that and adjust prns Assessment [...] AKA 05/24 - pain remains an issue. 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 No better with AUTOMOTIVE TECHNICIAN INSTRUCTOR. Will stop that and adjust prns Assessment [...] --> s/p amputation of the great toe 4/ Completed antibiotics per previous hospitalist discussed with podiatry, no more need for abx Podiatry has cleared the patient for discharge Assessment & Plan (02/03/2025 9:49 AM EDT): Podiatry following --> s/p amputation of the great toe 4 Completed antibiotics per previous hospitalist discussed with podiatry, no more need for abx Assessment & Plan (02/02/2025 10:28 AM EDT): Podiatry following --> s/p amputation of the great toe 4/ Completed antibiotics per previous hospitalist Will reach [...] direction Exostosis of toe 01/19/2025 Atherosclerosis of [place] artery of extremity Constipation 01/15/2025 Assessment & [...] arterial studies 05/02 with significant PAD - TROUBLE LOCATER stenosis Patent popliteal and TPT with severe stenosis Patent proximal BUS OR [employer] but occluded distally without reconstitution Patent DAREN with multifocal severe stenosis, occlusion at the level of the ankle and no distal reconstitution Significant small vessel disease in L foot Assessment & Plan (05/19/2025 11:25 AM EDT): History of angiogram 01/2025. 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 - vascular consulted - arterial studies 7/17 with significant PAD - TROUBLE LOCATER stenosis Patent popliteal and TPT with severe stenosis Patent proximal BUS OR TRUCK GARAGE MECHANIC but occluded distally without reconstitution Patent DAREN with multifocal severe stenosis, occlusion at the level of the ankle and no distal reconstitution Significant small vessel disease in L foot Assessment & Plan (05/17/2025 9:16 AM EDT): History of angiogram 01/2025. - vascular consulted - arterial studies 7/17 with significant PAD - TROUBLE LOCATER stenosis Patent popliteal and TPT with severe stenosis Patent proximal BUS OR TRUCK G[employer]AGE MECH[employer]IC but occluded distally without reconstitution Patent DAREN with multifocal severe stenosis, occlusion at the level of the ankle and no distal reconstitution Significant small vessel disease in L foot Assessment & Plan (05/16/2025 2:50 PM EDT): History of angiogram 01/2025. - vascular consulted - arterial studies 7/17 with significant PAD - TROUBLE LOCATER stenosis Patent popliteal and TPT with severe stenosis Patent proximal BUS OR TR[employer] G[employer]AGE MECH[employer]IC but occluded distally without reconstitution Patent DAREN with multifocal severe stenosis, occlusion at the level of the ankle and no distal reconstitution Significant small vessel disease in L foot Assessment & Plan (05/15/2025 2:22 PM EDT): History of angiogram 01/2025. - vascular consulted - arterial studies 7/17 with significant PAD - TROUBLE LOCATER stenosis Patent popliteal and TPT with severe stenosis Patent proximal BUS OR TRUCK G[employer]AGE MECH[employer]IC but occluded distally without reconstitution Patent DAREN with multifocal severe stenosis, occlusion at the level of the ankle and no distal reconstitution Significant small vessel disease in L foot Assessment & Plan (05/14/2025 10:10 AM EDT): History of angiogram 01/2025. - vascular consulted - arterial studies 7/17 with significant PAD - TROUBLE LOCATER stenosis Patent popliteal and TPT with severe stenosis Patent proximal BUS OR TRUCK G[employer]AGE MECH[employer]IC but occluded distally without reconstitution Patent DAREN with multifocal severe stenosis, occlusion at the level of the ankle and no distal reconstitution Significant small vessel disease in L foot Assessment & Plan (05/13/2025 9:08 AM EDT): History of angiogram 01/2025. - vascular consulted - arterial studies 7/17 with significant PAD - TROUBLE LOCATER stenosis Patent popliteal and TPT with severe stenosis Patent proximal BUS OR TRUCK G[employer]AGE MECH[employer]IC but occluded distally without reconstitution Patent DAREN with multifocal severe stenosis, occlusion at the level of the ankle and no distal reconstitution Significant small vessel disease in L foot Assessment & Plan (05/12/2025 10:17 AM EDT): History of angiogram 01/2025. - vascular consulted - arterial studies 7/17 with significant PAD - TROUBLE LOCATER stenosis Patent popliteal and TPT with severe stenosis Patent proximal BUS OR TR[employer] G[employer]CH[employer]IC but occluded distally without reconstitution Patent DAREN with multifocal severe stenosis, occlusion at the level of the ankle and no distal reconstitution Significant small vessel disease in L foot Assessment & Plan (05/11/2025 11:59 AM EDT): History of angiogram 01/2025. - vascular consulted - arterial studies 7/17 with significant PAD - TROUBLE LOCATER stenosis Patent popliteal and TPT with severe stenosis Patent proximal BUS OR TR[employer] G[employer]AGE [employer]CH[employer]IC but occluded distally without reconstitution Patent DAREN [...] week, April 10, now - continue lipitor Assessment & Plan (05/09/2025 7:00 AM EDT): History of angiogram 01/2025. - vascular consulted - arterial studies 7/17 with significant PAD - plans for angiogram under anesthesia this , April 10 - continue lipitor Assessment & [...] AM EDT): S/p angiogram. Another procedure this comign week Assessment & Plan (01/23/2025 1:07 PM [...] - monitor I/O, daily weights - diuresis: BUS OR [employer]AGE [employer]CH[employer]IC lasix on hold - BUS OR TR[employer] G[employer]AGE MECH[employer]IC coreg -Stable 05/20/25 Assessment & Plan (05/19/2025 11:25 AM EDT): Echo 2023 normal EF. Euvolemic on exam - monitor I/O, daily weights - diuresis: BUS OR [employer]AGE [employer]CH[employer]IC lasix on hold - BUS OR TRUCK G[employer]AGE MECH[employer]IC coreg -Stable 05/19/25 Assessment & Plan (05/18/2025 8:38 AM EDT): Echo 2023 normal EF. Euvolemic on exam - monitor I/O, daily weights - diuresis: BUS OR TR[employer] G[employer]AGE MECH[employer]IC lasix on hold - BUS OR TRUCK GARAGE MECH[employer]IC coreg -Stable 05/18/25 Assessment & Plan (05/17/2025 9:16 AM EDT): Echo 2023 normal EF. Euvolemic on exam - monitor I/O, daily weights - diuresis: BUS OR TRUCK G[employer]AGE [employer]CH[employer]IC lasix on hold - BUS OR TRUCK GARAGE MECH[employer]IC coreg -Stable 05/17/25 Assessment & Plan (05/16/2025 2:50 PM EDT): Echo 2023 normal EF. Euvolemic on exam - monitor I/O, daily weights - diuresis: BUS OR TR[employer] G[employer]AGE MECH[employer]IC lasix on hold - BUS OR TRUCK GARAGE MECHANIC coreg -Stable 05/16/25 Assessment & Plan (05/15/2025 2:22 PM EDT): Echo 2023 normal EF. Euvolemic on exam - monitor I/O, daily weights - diuresis: BUS OR TRUCK G[employer]AGE MECH[employer]IC lasix on hold - BUS OR TRUCK GARAGE MECH[employer]IC coreg -Stable 05/15/25 Assessment & Plan (05/14/2025 2:51 PM EDT): Echo 2023 normal EF. Euvolemic on exam - monitor I/O, daily weights - diuresis: BUS OR TRUCK G[employer]AGE MECH[employer]IC lasix on hold - BUS OR TRUCK GARAGE MECHANIC coreg -Stable 05/14/25 Assessment & Plan (05/13/2025 9:08 AM EDT): Echo 2023 normal EF. Euvolemic on exam - monitor I/O, daily weights - diuresis: BUS OR TRUCK G[employer]AGE MECHANIC lasix on hold - BUS OR TRUCK GARAGE MECHANIC coreg Assessment & Plan (05/12/2025 10:17 AM EDT): Echo 2023 normal EF. Euvolemic on exam - monitor I/O, daily weights - diuresis: BUS OR TRUCK G[employer]AGE MECHANIC lasix on hold - BUS OR TRUCK GARAGE MECHANIC coreg Assessment & Plan (05/11/2025 7:12 AM EDT): Echo 2023 normal EF. Euvolemic on exam - monitor I/O, daily weights - diuresis: BUS OR TRUCK G[employer]AGE MECHANIC lasix on hold - BUS OR TRUCK GARAGE MECHANIC coreg Assessment & Plan (05/10/2025 1:54 PM EDT): Echo 2023 normal EF. Euvolemic on exam - monitor I/O, daily weights - diuresis: BUS OR TRUCK GARAGE MECHANIC lasix on hold - BUS OR TRUCK GARAGE MECHANIC coreg Assessment & Plan (05/09/2025 7:00 AM EDT): Echo 2023 normal EF. Euvolemic on exam - monitor I/O, daily weights - diuresis: BUS OR TRUCK G[employer]AGE MECH[employer]IC lasix on hold - BUS OR TRUCK GARAGE MECH[employer]IC coreg Assessment & Plan (05/08/2025 6:56 AM EDT): Echo 2023 normal EF. Euvolemic on exam - monitor I/O, daily weights - diuresis: BUS OR TR[employer] G[employer]AGE MECH[employer]IC lasix on hold - BUS OR TRUCK GARAGE MECH[employer]IC coreg Assessment & Plan (05/07/2025 7:10 AM EDT): Echo 2023 normal EF. Euvolemic on exam - monitor I/O, daily weights - diuresis: BUS OR TR[employer] G[employer]AGE [employer]CH[employer]IC lasix on hold - BUS OR TRUCK GARAGE MECH[employer]IC coreg Assessment & Plan (05/06/2025 9:31 AM EDT): Echo 2023 normal EF. Euvolemic on exam - monitor I/O, daily weights - diuresis: BUS OR TR[employer] G[employer]AGE MECH[employer]IC lasix on hold - BUS OR TRUCK GARAGE MECH[employer]IC coreg Assessment & Plan (05/05/2025 1:00 PM EDT): Echo 2023 normal EF. Euvolemic on exam - monitor I/O, daily weights - diuresis: BUS OR TRUCK G[employer]AGE MECH[employer]IC lasix on hold - BUS OR TRUCK GARAGE MECH[employer]IC coreg Assessment & Plan (05/05/2025 12:57 PM EDT): Echo 2023 normal EF. Euvolemic on exam - monitor I/O, daily weights - diuresis: BUS OR TR[employer] G[employer]AGE MECH[employer]IC lasix on hold - BUS OR TRUCK G[employer]AGE MECH[employer]IC coreg Assessment & Plan (05/03/2025 6:33 PM EDT): Echo 2023 normal EF Compensated 05/03/2025 Assessment & Plan (05/02/2025 5:52 PM EDT): Echo 2023 normal EF Compensated 05/02/2025 Assessment & [...] Plan (01/15/2025 6:29 AM EDT): -- Lasix BUS OR [employer]AGE [employer]. Continued -- appears compensated >> stable Assessment & Plan (01/15/2025 6:21 AM EDT): -- Lasix BUS OR TR[employer]AGE [employer]CH[employer]IC. Continued -- appears compensated Assessment & Plan (01/15/2025 6:10 AM EDT): -- Lasix BUS OR [employer] G[employer]AGE [employer]. 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 Not on AC d/t hx of SAH - BUS OR [employer]CH[employer] coreg - cardiac monitoring -Rate controlled 05/20/25 Assessment & Plan (05/19/2025 11:25 AM EDT): Heart rate controlled. Not on AC d/t hx of SAH - BUS OR TR[employer] G[employer]AGE [employer]CH[employer]IC coreg - cardiac monitoring -Rate controlled 05/19/25 Assessment & Plan (05/18/2025 8:38 AM EDT): Heart rate controlled. Not on AC d/t hx of SAH - BUS OR TR[employer] G[employer]AGE [employer] coreg - cardiac monitoring -Rate controlled 05/18/25 Assessment & Plan (05/17/2025 9:16 AM EDT): Heart rate controlled. Not on AC d/t hx of SAH - BUS OR TR[employer] G[employer]AGE ME[employer] coreg - cardiac monitoring -Rate controlled 05/17/25 Assessment & Plan (05/16/2025 2:50 PM EDT): Heart rate controlled. Not on AC d/t hx of SAH - BUS OR TR[employer] G[employer]AGE MECH[employer]IC coreg - cardiac monitoring -Rate controlled 05/16/25 Assessment & Plan (05/15/2025 2:22 PM EDT): Heart rate controlled. Not on AC d/t hx of SAH - BUS OR TR[employer] G[employer]AGE MECH[employer]IC coreg - cardiac monitoring -Heart rate 94 Assessment & Plan (05/14/2025 10:10 AM EDT): Heart rate controlled. Not on AC d/t hx of SAH - BUS OR TR[employer] G[employer]AGE ME[employer]IC coreg - cardiac monitoring -Heart rate 94 Assessment & Plan (05/13/2025 1:41 PM EDT): Heart rate controlled. Not on AC d/t hx of SAH - BUS OR TR[employer]CH[employer]IC coreg - cardiac monitoring -Heart rate 94 Assessment & Plan (05/12/2025 10:17 AM EDT): Heart rate controlled. Not on AC d/t hx of SAH - BUS OR TR[employer] G[employer]AGE [employer]IC coreg - cardiac monitoring -Heart rate 83 Assessment & Plan (05/11/2025 11:59 AM EDT): Heart rate controlled. Not on AC d/t hx of SAH - BUS OR TR[employer]IC coreg - cardiac monitoring -Heart rate 98 Assessment & Plan (05/10/2025 1:54 PM EDT): Heart rate controlled. Not on AC d/t hx of SAH - BUS OR [employer]AGE [employer]CH[employer]IC coreg - cardiac monitoring -Heart rate 83 Assessment & Plan (05/09/2025 10:25 AM EDT): Heart rate controlled. Not on AC d/t hx of SAH - BUS OR TR[employer]IC coreg - cardiac monitoring -Heart rate 75 Assessment & Plan (05/08/2025 1:05 PM EDT): Heart rate controlled. Not on AC d/t hx of SAH - BUS OR [employer]AGE [employer]IC coreg - cardiac monitoring -Heart rate 80 Assessment & Plan (05/07/2025 2:02 PM EDT): Heart rate controlled. Not on AC d/t hx of SAH - BUS OR [employer]IC coreg - cardiac monitoring -Heart rate 81 Assessment & Plan (05/06/2025 9:31 AM EDT): Heart rate controlled. Not on AC d/t hx of SAH - BUS OR TR[employer] G[employer]CH[employer]IC coreg - cardiac monitoring Assessment & Plan (05/05/2025 1:00 PM EDT): Heart rate controlled. Not on AC d/t hx of SAH - BUS OR TR[employer] coreg - cardiac monitoring Assessment & Plan (05/05/2025 12:57 PM EDT): Heart rate controlled. Not on AC d/t hx of SAH - BUS OR TR[employer] coreg - cardiac monitoring Assessment & Plan [...] Assessment & Plan (01/18/2025 1:04 PM EDT): now Assessment & Plan (01/17/2025 1:00 PM EDT): Regular now Assessment & Plan (01/16/2025 9:59 AM EDT): Regular now Assessment & Plan (01/15/2025 11:35 AM EDT): Regular now Assessment & Plan (01/15/2025 6:29 AM EDT): -- Coreg, ASA BUS OR [employer]AGE [employer]CH[employer]IC. Continued -- Not on anticoagulation due to his history of subarachnoid hemorrhage and fall risk -- In and out of atrial fibrillation. Assessment & Plan (01/15/2025 6:21 AM EDT): -- Coreg, ASA BUS OR [employer]AGE MECH[employer]. Continued -- Not on anticoagulation due to his history of subarachnoid hemorrhage and fall risk -- In and out of atrial fibrillation. Assessment & Plan (01/15/2025 6:10 AM EDT): -- Coreg, ASA BUS OR [employer] G[employer]AGE MECH[employer]IC. Continued -- Not on anticoagulation due to his history of subarachnoid hemorrhage and fall risk -- In and out of atrial fibrillation. Assessment & Plan (01/12/2025 10:29 PM EDT): -- Coreg, ASA BUS OR [employer] G[employer]AGE MECH[employer]IC Carotid stenosis, symptomatic w/o infarct, bilat eral 04/28/2023 Overview (01/12/2025): Last Assessment & Plan: Carotid duplex from 05/10/2023- bilateral carotid artery stenosis (50-69%). A referral to CT surgery was sent by Shannon Flor APRN at last office visit. She is scheduled to see Dr. Alcantara on 06/06/2023. Assessment & Plan (01/28/2025 9:59 AM EDT): -- ASA, Lipitor BUS OR TR[employer]AGE [employer]CH[employer]IC. Continued. Following Assessment & Plan (01/27/2025 2:14 PM EDT): -- ASA, Lipitor BUS OR TR[employer] G[employer]AGE [employer]CH[employer]IC. Continued. Following Assessment & Plan (01/26/2025 12:09 PM EDT): -- ASA, Lipitor BUS OR TR[employer] G[employer]AGE [employer]CH[employer]IC. Continued. Following Assessment & Plan (01/25/2025 12:22 PM EDT): -- ASA, Lipitor BUS OR [employer] G[employer]AGE [employer]CH[employer]IC. Continued. Following Assessment & Plan (01/24/2025 9:38 AM EDT): -- ASA, Lipitor BUS OR TR[employer] G[employer]AGE MECH[employer]IC. Continued. Following Assessment & Plan (01/23/2025 1:07 PM EDT): -- ASA, Lipitor BUS OR TR[employer] G[employer]AGE [employer]CH[employer]IC. Continued. Following Assessment & Plan (01/22/2025 10:03 AM EDT): -- ASA, Lipitor BUS OR [employer] G[employer]AGE [employer]CH[employer]IC. Continued. Following Assessment & Plan (01/21/2025 12:19 PM EDT): -- ASA, Lipitor BUS OR TR[employer] G[employer]AGE [employer]CH[employer]IC. Continued. Following Assessment & Plan (01/20/2025 2:21 PM EDT): -- ASA, Lipitor BUS OR TR[employer] G[employer]AGE [employer]IC. Continued. Following Assessment & Plan (01/19/2025 1:36 PM EDT): -- ASA, Lipitor BUS OR TR[employer] G[employer]AGE MECH[employer]IC. Continued. Following Assessment & Plan (01/18/2025 1:04 PM EDT): -- ASA, Lipitor BUS OR TR[employer] G[employer]AGE [employer]IC. Continued. Following Assessment & Plan (01/17/2025 1:00 PM EDT): -- ASA, Lipitor BUS OR [employer] G[employer]AGE [employer]CH[employer]IC. Continued. Following Assessment & Plan (01/16/2025 9:59 AM EDT): -- ASA, Lipitor BUS OR TRUCK GARAGE MECHANIC. Continued. Following Assessment & Plan (01/15/2025 11:35 AM EDT): -- ASA, Lipitor BUS OR TRUCK GARAGE MECHANIC. Continued. Following Assessment & Plan (01/15/2025 6:29 AM EDT): -- ASA, Lipitor BUS OR TRUCK GARAGE MECHANIC. Continued Assessment & Plan (01/15/2025 6:21 AM EDT): -- ASA, Lipitor BUS OR TRUCK GARAGE MECHANIC Assessment & Plan (01/15/2025 6:10 AM EDT): -- ASA, Lipitor BUS OR TRUCK GARAGE MECHANIC Assessment & Plan (01/12/2025 10:29 PM EDT): -- ASA, Lipitor BUS OR TRUCK GARAGE MECHANIC Coronary arteriosclerosis in [place] artery // Hx of CABG 04/09/2016 Overview [...] AM EDT): -- Coreg, Lipitor, ASA, Ran[place] BUS OR TRUCK GARAGE MECHANIC. Continued Assessment & Plan (01/15/2025 6:21 AM EDT): -- Coreg, Lipitor, ASA, Ranexa BUS OR TRUCK GARAGE MECHANIC. Continued Assessment & Plan (01/15/2025 6:10 AM EDT): -- Coreg, Lipitor, ASA, Ranexa BUS OR TRUCK GARAGE MECHANIC. Continued -- CP -- Cardiology consulted -- [...] PM EDT): -- Coreg, Lipitor, ASA, Ranexa BUS OR TRUCK GARAGE MECHANIC Secondary open-angle glaucoma of right eye, ileana re stage 12/09/2015 Type 2 diabetes mellitus, [facility] current use of insulin 12/09/2015 Overview [...] PM EDT): Last A1c 4.8 in 03/2024. 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 - hold off on FSBS, correctional algorithm - rpt A1c 5.3 - stable 05/20/25 Assessment & Plan (05/19/2025 3:11 PM EDT): Last A1c 4.8 in 03/2024. 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 - hold off on FSBS, correctional algorithm - rpt A1c 5.3 - stable 05/19/25 Assessment & Plan (05/18/2025 8:38 AM EDT): Last A1c 4.8 in 03/2024. 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 - hold off on FSBS, correctional algorithm - rpt A1c 5.3 Assessment & Plan (05/17/2025 9:16 AM EDT): Last A1c 4.8 in 03/2024. 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 - hold off on FSBS, correctional algorithm - rpt A1c 5.3 Assessment & Plan (05/16/2025 2:50 PM EDT): Last A1c 4.8 in 03/2024. 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 - hold off on FSBS, correctional algorithm - rpt A1c 5.3 Assessment & Plan (05/15/2025 2:22 PM EDT): Last A1c 4.8 in 03/2024. 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 - hold off on FSBS, correctional algorithm - rpt A1c 5.3 Assessment & Plan (05/14/2025 10:10 AM EDT): Last A1c 4.8 in 03/2024. 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 - hold off on FSBS, correctional algorithm - rpt A1c 5.3 Assessment & Plan (05/13/2025 9:08 AM EDT): Last A1c 4.8 in 03/2024. 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 - hold off on FSBS, correctional algorithm - rpt A1c 5.3 Assessment & Plan (05/12/2025 10:17 AM EDT): Last A1c 4.8 in 03/2024. 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 - hold off on FSBS, correctional algorithm - rpt A1c 5.3 Assessment & Plan (05/11/2025 7:12 AM EDT): Last A1c 4.8 in 03/2024. 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 - hold off on FSBS, correctional algorithm - rpt A1c 5.3 Assessment & Plan (05/10/2025 1:54 PM EDT): Last A1c 4.8 in 03/2024. 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 - hold off on FSBS, correctional algorithm - rpt A1c 5.3 Assessment & Plan (05/09/2025 7:00 AM EDT): Last A1c 4.8 in 03/2024. 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 - hold off on FSBS, correctional algorithm - rpt A1c 5.3 Assessment & Plan (05/08/2025 6:56 AM EDT): Last A1c 4.8 in 03/2024. 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 - hold off on FSBS, correctional algorithm - rpt A1c 5.3 Assessment & Plan (05/07/2025 7:10 AM EDT): Last A1c 4.8 in 03/2024. 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 - hold off on FSBS, correctional algorithm - rpt A1c 5.3 Assessment & Plan (05/06/2025 9:31 AM EDT): Last A1c 4.8 in 03/2024. 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 - hold off on FSBS, correctional algorithm - rpt A1c 5.3 Assessment & Plan (05/05/2025 1:00 PM EDT): Last A1c 4.8 in 03/2024. 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 - hold off on FSBS, correctional algorithm - note metformin started - will stop given plans for angiogram this week - rpt A1c ordered Assessment & Plan (05/05/2025 12:57 PM EDT): Last A1c 4.8 in 03/2024. 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 Continued home meds Assessment & Plan (01/27/2025 2:14 PM EDT): -- Lipitor BUS OR TRUCK GARAGE MECHANIC. Continued home meds Assessment & Plan (01/26/2025 12:09 PM EDT): -- Lipitor BUS OR TRUCK GARAGE MECHANIC. Continued home meds Assessment & Plan (01/25/2025 12:22 PM EDT): -- Lipitor BUS OR TRUCK GARAGE MECHANIC. Continued home meds Assessment & Plan (01/24/2025 9:38 AM EDT): -- Lipitor BUS OR TRUCK GARAGE MECHANIC. Continued home meds Assessment & Plan (01/23/2025 1:07 PM EDT): -- Lipitor BUS OR TRUCK GARAGE MECHANIC. Continued home meds Assessment & Plan (01/22/2025 10:03 AM EDT): -- Lipitor BUS OR TRUCK GARAGE MECHANIC. Continued home meds Assessment & Plan (01/21/2025 12:19 PM EDT): -- Lipitor BUS OR TRUCK GARAGE MECHANIC. Continued home meds Assessment & Plan (01/20/2025 2:21 PM EDT): -- Lipitor BUS OR TRUCK GARAGE MECHANIC. Continued home meds Assessment & Plan (01/19/2025 1:36 PM EDT): -- Lipitor BUS OR TRUCK GARAGE MECHANIC. Continued home meds Assessment & Plan (01/18/2025 1:04 PM EDT): -- Lipitor BUS OR TRUCK GARAGE MECHANIC. Continued home meds Assessment & Plan (01/17/2025 1:00 PM EDT): -- Lipitor BUS OR TRUCK GARAGE MECHANIC. Continued home meds Assessment & Plan (01/16/2025 9:59 AM EDT): -- Lipitor BUS OR TRUCK GARAGE MECHANIC. Continued home meds Assessment & Plan (01/15/2025 11:35 AM EDT): -- Lipitor BUS OR TRUCK GARAGE MECHANIC. Continued home meds Assessment & Plan (01/15/2025 6:29 AM EDT): -- Lipitor BUS OR TRUCK GARAGE MECHANIC. Continued Assessment & Plan (01/15/2025 6:21 AM EDT): -- Lipitor BUS OR TRUCK GARAGE MECHANIC Assessment & Plan (01/15/2025 6:10 AM EDT): -- Lipitor BUS OR TRUCK GARAGE MECHANIC Assessment & Plan (01/12/2025 10:29 PM EDT): -- Lipitor BUS OR TRUCK GARAGE MECHANIC Hypertension associated with diabetes 09/30/2014 Overview (06/04/2024): [...] (05/20/2025 12:54 PM EDT): Well controlled. - BUS OR TRUCK GARAGE MECHANIC coreg - monitor and adjust as needed -BP stable 05/20/25 Assessment & Plan (05/19/2025 11:25 AM EDT): Well controlled. - BUS OR TRUCK GARAGE MECHANIC coreg - monitor and adjust as needed -BP stable 05/19/25 Assessment & Plan (05/18/2025 8:38 AM EDT): Well controlled. - BUS OR TRUCK GARAGE MECHANIC coreg - monitor and adjust as needed -BP stable 05/18/25 Assessment & Plan (05/17/2025 9:16 AM EDT): Well controlled. - BUS OR TRUCK GARAGE MECHANIC coreg - monitor and adjust as needed -BP stable 05/17/25 Assessment & Plan (05/16/2025 2:50 PM EDT): Well controlled. - BUS OR TRUCK GARAGE MECHANIC coreg - monitor and adjust as needed -BP stable 05/16/25 Assessment & Plan (05/15/2025 2:22 PM EDT): Well controlled. - BUS OR TRUCK GARAGE MECHANIC coreg - monitor and adjust as needed -BP stable 05/15/25 Assessment & Plan (05/14/2025 2:51 PM EDT): Well controlled. - BUS OR TRUCK GARAGE MECHANIC coreg - monitor and adjust as needed -BP stable 05/14/25 Assessment & Plan (05/13/2025 1:41 PM EDT): Well controlled. - BUS OR TRUCK GARAGE MECHANIC coreg - monitor and adjust as needed -Blood pressure 113/46 Assessment & Plan (05/12/2025 10:17 AM EDT): Well controlled. - BUS OR TRUCK GARAGE MECHANIC coreg - monitor and adjust as needed -Blood pressure 122/57 Assessment & Plan (05/11/2025 7:12 AM EDT): Well controlled. - BUS OR TRUCK GARAGE MECHANIC coreg - monitor and adjust as needed -Blood pressure 116/76 Assessment & Plan (05/10/2025 1:54 PM EDT): Well controlled. - BUS OR TRUCK GARAGE MECHANIC coreg - monitor and adjust as needed -Blood pressure 116/76 Assessment & Plan (05/09/2025 10:25 AM EDT): Well controlled. - BUS OR TRUCK GARAGE MECHANIC coreg - monitor and adjust as needed -Blood pressure 128/66 Assessment & Plan (05/08/2025 1:05 PM EDT): Well controlled. - BUS OR TRUCK GARAGE MECHANIC coreg - monitor and adjust as needed -Blood pressure 124/66 Assessment & Plan (05/07/2025 7:10 AM EDT): Well controlled. - BUS OR TRUCK GARAGE MECHANIC coreg - monitor and adjust as needed Assessment & Plan (05/06/2025 9:31 AM EDT): Well controlled. - BUS OR TRUCK GARAGE MECHANIC coreg - monitor and adjust as needed Assessment & Plan (05/05/2025 1:00 PM EDT): Well controlled. - BUS OR TRUCK GARAGE MECHANIC coreg - monitor and adjust as needed Assessment & Plan (05/05/2025 12:57 PM EDT): Well controlled. - BUS OR TRUCK GARAGE MECHANIC coreg - monitor and adjust as needed [...] Plan (01/20/2025 2:21 PM EDT): -- Coreg BUS OR TRUCK GARAGE MECHANIC. Continued -- In acceptable range. Stable. BP Readings from Last 1 Encounters: 01/20/25 109/62 Assessment & Plan (01/19/2025 1:36 PM EDT): -- Coreg BUS OR TRUCK GARAGE MECHANIC. Continued -- In acceptable range. Stable. BP Readings from Last 1 Encounters: 01/19/25 100/42 Assessment & Plan (01/18/2025 1:04 PM EDT): -- Coreg BUS OR TRUCK GARAGE MECHANIC. Continued -- In acceptable range. Stable. BP Readings from Last 1 Encounters: 01/18/25 106/41 Assessment & Plan (01/17/2025 1:00 PM EDT): -- Coreg BUS OR TRUCK GARAGE MECHANIC. Continued -- In acceptable range. Stable. BP Readings from Last 1 Encounters: 01/17/25 119/46 Assessment & Plan (01/16/2025 9:59 AM EDT): -- Coreg BUS OR TRUCK GARAGE MECHANIC. Continued -- In acceptable range. Stable. BP Readings from Last 1 Encounters: 01/16/25 144/54 Assessment & Plan (01/15/2025 11:35 AM EDT): -- Coreg BUS OR TRUCK GARAGE MECHANIC. Continued -- In acceptable range BP Readings from Last 1 Encounters: 01/15/25 125/54 Assessment & Plan (01/15/2025 6:29 AM EDT): -- Coreg BUS OR TRUCK GARAGE MECHANIC. Continued -- In acceptable range Assessment & Plan (01/15/2025 6:21 AM EDT): -- Coreg BUS OR TRUCK GARAGE MECHANIC -- In acceptable range Assessment & Plan (01/15/2025 6:10 AM EDT): -- Coreg BUS OR TRUCK GARAGE MECHANIC Assessment & Plan (01/12/2025 10:29 PM EDT): -- Coreg BUS OR TRUCK GARAGE MECHANIC Cervical disc disease 09/30/2014 Peripheral neuropathy 09/30/2014 Overview (01/12/2025): Continue outpatient management Resolved Problems Problem Noted Date Diagnosed Date Resolved Date Acute heart failure with pre served ejection fraction 06/02/2025 06/02/2025 Pleural effusion 06/04/2024 06/04/2024 Encounters Date Type Department Care Team Description 06/28/2025 Telephone [facility]P [facility] [address] [place] [address] Sukh Garner DO Appointment Needed 06/23/2025 1:13 PM EDT - 07/02/2025 10:57 AM EDT Hospital Encounter [facility] [address] [place] [address] Stephan Rodriguez MD Nienaber, Kirk A, MD Atrial fibrillation with RVR (HCC) (Primary Dx); Acute pulmonary edema (HCC); Elevated troponin; Pleural effusion Discharge Disposition: Fdc Facility 06/12/2025 8:28 PM EDT - 06/12/2025 11:17 PM EDT Emergency [facility] [place] [id number] Rhina Gooden DO Acute UTI (Primary Dx) Discharge Disposition: Nursing Facility 05/24/2025 8:15 AM EDT - 05/24/2025 10:45 AM EDT Surgery [place] [facility] [place] [address] Vargas Wolf MD LEG AMPUTATION ABOVE KNEE / REVISION ABOVE KNEE AMPUTATION 05/24/2025 8:07 AM EDT Anesthesia Event [place]G [facility] [place] [address] Tano Justice DO Trog, Lynnsey, STEPHANIE 05/24/2025 7:20 AM EDT Ancillary Procedure [facility] SURGERY [facility] [address] [place] [facility] Donnie Kaur MD Adler, Jordan M, MD Connelly, Kevin D, MD 05/23/2025 3:01 AM EDT Anesthesia Event [facility] 3C PULMONARY [facility] [place] [address] Sheryl Horton, STEPHANIE 05/21/2025 Orders Only SEP Vascular Surg [facility] [address] [place] [address] [address] [place] [phone] Mary Lombardi MA PAD (peripheral artery disease); Critical limb ischemia of left lower extremity (HCC) 05/10/2025 12:17 PM EDT Anesthesia Event EDG [facility] [place] [address] Manuel Noland MD Zehnder, Wende, EDUCATIONAL PSYCHOLOGY PROFESSOR 05/10/2025 11:32 AM EDT - 05/10/2025 11:59 PM EDT Hospital Encounter EDG [facility] [place] [address] Donnie Kaur MD Adler, Jordan M, MD Rodgers, Douglas A, MD Wright, Matthew Taylor, CRNA Rachovitsky, Harel N, MD Preop testing (Primary Dx); Anemia, unspecified type; PAD (peripheral artery disease); Critical limb ischemia of left lower extremity (HCC) Discharge Disposition: Home or Self Care 05/09/2025 3:01 AM EDT Anesthesia Event [facility]G 3[facility] PULMONARY [facility] [place] [address] Sheryl Horton, STEPHANIE 05/03/2025 Orders Only [facility]P Vascular Surg [facility] [address] [facility] [address] [place] [address] Mary Lombardi MA Critical limb ischemia of left lower extremity (HCC) (Primary Dx); PAD (peripheral artery disease) 05/01/2025 Orders Only SEP Podiatry [address] [place] [phone] Irineo Perez DPM Wound dehiscence (Primary Dx); S/P transmetatarsal amputation of foot, left (HCC) 04/30/2025 4:07 PM EDT - 06/10/2025 4:06 PM EDT Hospital Encounter [facility] 5D TCU [facility] [place] [address] Donnie Kaur MD Adler, Jordan M, MD Connelly, Kevin D, MD Upadhayay, Niraj, MD Wound dehiscence (Primary Dx); Typical atrial flutter (HCC); Left foot pain; PAD (peripheral artery disease); Critical limb ischemia of left lower extremity (HCC); Preop testing Discharge Disposition: Fdc Facility 04/29/2025 Telephone SEP Podiatry [address] [place] [address] Irineo Perez DPM Other from Last 3 Months Surgical History Surgery [...] IR REVAS FEM POP ART UNILAT W BUS OR TRUCK GARAGE MECHANIC 01/30/2025 IR REVAS FEM POP ART UNILAT W BUS OR TRUCK GARAGE MECHANIC 01/30/2025 Vargas Wolf MD EDG IR CARDIAC [...] e alcohol) [facility] Utilities Answer Date Recorded In the past 12 months has [employer] electric, gas, oil, or water [employer] threatened to shut off services in your home? No 06/23/2025 Overall Financial Resource Strain (CARDIA) Answe r Date Recorded How hard is it for you to pa y for the very basics like food, housing, medical care, and heating? Not very hard 06/23/2025 PHQ-2 Answer Date Recorded PHQ-2 Total Score 0 06/23/2025 [facility] [place] of Occupat ional Health - Occupational Stress [...] to get more. Never true 06/23/2025 [facility] IP Transportation Answer D ate [...] 06/12/2025 8:24 PM EDT Plan of Treatment Upcoming Encounters Date Type Department Care Team (Late st Contact Info) Description 08/05/2025 3:45 PM EDT Office Visit [facility] Vascular Surg [facility] [address] [place] [address] [place] [phone] Vargas Wolf MD [address] [place] [address] [place] [id number] Health Maintenance Due Date Last Done Comments [...] this topic Medical Devices Implanted Type Area Clinical Asst Device Identifier Shelf Expiration Date Model / Serial / Lot Stent Omnilink Elite [id number] Otw Be Prmnt 0.035in Gw 6fr Stent-Omn ilink [facility]:VASC DEV 01/14/2026 [id number] / / Stent Omnilink Elite [id number] Otw Be Prmnt 0.035in Gw 6fr Stent-Omn ilink [facility]:VASC DEV 01/14/[id number] / / Mtrx Tiss 23ga Viaflow Hmn Plcnt Flw Premx Amb Temp Ndl 2cc - [id number] Implanted:Qty: 1 on 03/09/2025 by Dacia Mills DPM at [facility] Left: Foot CURRY MED GRP:[employer] TECH 11/10/2028 [id number] / [id number] / Procedures Procedure Name Priority Date/Time [...] were not included. 06/26/2025 Skyler Jan 1940 [id number] Reason for Consult: Urinary retention Requesting Physician: Duong Vitale MD History Obtained From: Patient, chart review HISTORY OF PRESENT ILLNESS: The patient is a 84 y.o. female with a PMHx of PAD, CHF, Afib,CKD, DM, admitted on 06/23/2025 to [facility] for AFIB with RVR. She iscurrently in ICU for AFIB with tachycardia, seizure like activity, acuteon chronic HF. Urology has been consulted for Urinary Retention. Patientwith elevated PVRs, has been straight cath for 850cc several times sinceadmission. Indwelling garrido placed last night, 06/25/2025, by OIL WELL FISHING TOOL TECHNICIANJessi Marcum, the patient was seen by our [...] IR REVAS FEM POP ART UNILAT W BUS OR TRUCK GARAGE MECHANIC 01/30/2025 IR REVAS FEM POP ART UNILAT W BUS OR TRUCK GARAGE MECHANIC 01/30/2025 Vargas Wolf MD EDG IR IR [...] 12:16 PM EDT IP CONSULT TO MEDICAL MANHOLE STRIPPER Routine 06/24/2025 11:57 AM EDT Procedure Note - Spencer Luna, EDUCATIONAL PSYCHOLOGY PROFESSOR - 06/24/2025 11:46 AM EDTThis note is in progress. Images from the original note were not included. PULMONARY / CRITICAL CARE CONSULT NOTE Spencer Erickson Jeremy, STEPHANIE 06/24/2025 Patient: Skyler Montoya 84 y.o. female Date of Admission: 06/23/2025 Admitting Provider: Duong Vitale MD CC: Chief Complaint Patient presents with Atrial Fibrillation a fib rvr from [facility]. they report HR of 180, per squad HR 103. Skyler Montoya is a(n)84 y.o. female is being evaluated following ICUadmission for acute hypoxic respiratory failure, seizures andbradycardia. HPI: Ms. Montoya is an 84 year old female with [...] with Afib with RVR and rate in [id number]'s. Trops: 92 -> 83, K: 4.5, creatinine: 0.84. [facility] [...] IR REVAS FEM POP ART UNILAT W BUS OR TRUCK GARAGE MECHANIC 01/30/2025 IR REVAS FEM POP ART UNILAT W BUS OR TRUCK GARAGE MECHANIC 01/30/2025 Vargas Wolf MD EDG IR IR [...] foot hallux amputation; Surgeon: Dacia Mills DPM;Location: [facility] MAIN OR; Service: Podiatry FH: No family [...] true Transportation Needs: No Transportation Needs (06/23/2025) [facility] Transportation In the past 12 months, has lack of reliable transportation kept you frommedical appointments, meetings, work or from getting things needed fordaily living?: No Physical Activity: Inactive (06/23/2025) Exercise Vital Sign Days of Exercise per Week: 0 days Minutes of Exercise per Session: 0 min Stress: No Stress Concern Present (06/23/2025) [facility] [place] of Occupational Health - Occupational StressQuestionnaire Feeling of Stress : Not at all Social Connections: Low Risk (10/30/2023) Received from [facility] ([place], [place], [place], [place]) Family and Community Support Help with Day to Day Activities: Not on file Feeling Lonely or Isolated: Not on file Intimate Partner Violence: Not At Risk (08/06/2024) Received from [facility] Humiliation, Afraid, Rape, and Kick questionnaire Fear of Current or Ex-Partner: No Emotionally Abused: No Physically Abused: No Sexually Abused: No Housing Stability: Low Risk (08/06/2024) Received from [facility] Housing Stability Vital Sign Unable to [...] fUROsemide 40 mg Intravenous Daily Insulin Calculator (COMMUNITY LIVING SPECIALIST) - FSBS (Correction Only) Intake Input 1 [...] 0 Taking nalOXone (NARCAN) 4 mg/actuation Nasl [place], Non-Aerosol 0.1 mL by Nasalroute as needed for Opioid Reversal. [place] the contents of one device(0.1mL) into one [...] Date 06/24/25 0700 - 06/25/25 0659 Shift 6832-3911 [id number] 24 Hour Total INTAKE I.V.(mL/kg/hr) 4.5 4.5 [...] 12 LEAD Result Date: 06/24[facility]2025 [facility]25[facility] Pat Name: SKYLER MONTOYA Department: DEPIDPatient ID: [id number] Room: [facility] Gender:Female Assistant Media Buyer: Reza PULIDO: [id number] By: DONNIE NIRMAL Order Number: [id number] MD: Sukh GarnerMeasurements Intervals [place] Rate:54 P: 0 AR: 0QRS: 39 QRSD: 89 T:0 QT: 462 [...] [facility] Date:2025-06-23 Pat Name: SKYLER MONTOYA Department: DEPIDPatient ID: [id number] Room: W428 Gender:Female Assistant Media Buyer: Femi : [id number] By: STEPHAN Earl Order Number: [id number] MD: Jaycob Sandoval MeasurementsIntervals [place] Rate: 139P: 0 AR: 0QRS: 65 QRSD: 82 T: 26QT: 286 QTc: 436InterpretiveStatements ATRIAL FIBRILLATION WITH RAPID VENTRICULAR RESPONSE POSSIBLEANTEROSEPTAL MYOCARDIAL INFARCTION, PROBABLY OLD Electronically Signed [id number] 19:29:47 [address] ANGIOGRAM [...] aortic arch aneurysm. Nopneumothorax. Small left and [id number] right pleural effusions.Emphysema. Opacities dependently in the [...] ordered Insulin Regimen: Q4H CCI Last BM: BUS OR TRUCK GARAGE MECHANIC Assessment Acute hypoxic respiratory failure Seizure Atrial [...] GI prophylaxis: Protonix CODE status: DNR Limited EDUCATIONAL PSYCHOLOGY PROFESSOR critical care time: 17 minutes Spencer Luna [...] stay: 0 day(s) Impression and Recommendations Skyler Montoya is a 84 y.o. female with a [...] -HCT now -Start Keppra 750 mg BID uRsty Sawyer MD Neurology 12:52 PM 06/24/25 Thank you for allowing me to participate in the care of Skyler Montoya.Please do no hesitate to contact me with any further questions orconcerns. HPI: This is a 84 y.o. female with a history of Afib, CAD, HF, HTN, HLD,PVD, CKD, DANTE, Stroke whom I am seeing in neurologic consultation at [facility] of Duong Vitale MD [...] Patch 0 nalOXone (NARCAN) 4 mg/actuation Nasl [place], Non-Aerosol 0.1 mL by Nasalroute as needed for Opioid Reversal. [place] the contents of one device(0.1mL) into one [...] Heart & Vascular Consult Note PATIENT: Skyler Montoya 0 PCP: No Pcp, Per Patient I would like to thank Duong Vitale MD for requesting me to see Randy for cardiac consultation for bradycardia. History provided by: EMR, son History limited by: intubated and sedated History of Present Illness: Skyler Montoya is a 84 y.o. 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 In the ED she was noted to [...] has cpap, but is not using. Stroke ([facility]) pt's states around 3 years ago. Urinary incontinence Urinary tract infection BUS OR TRUCK GARAGE MECHANIC Medications: Prior to Admission medications Medication Sig [...] Montiel MD nalOXone (NARCAN) 4 mg/actuation Nasl [place], Non-Aerosol 0.1 mL by Nasalroute as needed for Opioid Reversal. [place] the contents of one device(0.1mL) into one [...] 40 mg Intravenous BID Diuretic Insulin Calculator (COMMUNITY LIVING SPECIALIST) - FSBS (Correction Only) Intake Input 1 [...] 01/30/2025 IR ANGIOGRAM EXTREMITY LEFT 01/30/2025 Vargas Wofl MD EDG IR IR ANGIOGRAM FEMORAL ARTERIO SHIFT 01/17/2025 IR ANGIOGRAM FEMORAL ARTERIO SHIFT 01/17/2025 Vargas Wolf MD [facility] IR ANGIOGRAM FEMORAL ARTERIO SHIFT 05/10/2025 IR ANGIOGRAM FEMORAL ARTERIO SHIFT 05/10/2025 Vargas Wolf MD [facility] IR REVAS FEM POP ART UNILAT W BUS OR TRUCK GARAGE MECHANIC 01/30/2025 IR REVAS FEM POP ART UNILAT W BUS OR TRUCK GARAGE MECHANIC 01/30/2025 Vargas Wolf MD EDG IR IR [...] Active Problem List Diagnosis Coronary arteriosclerosis in [place] artery // Hx of CABG Closed nondisplaced [...] left foot Exostosis of toe Atherosclerosis of [place] artery of extremity Abscess of toe of [...] most recent cardiovascular imaging studies available in [facility] EMR werereviewed at time of consultation [...] Bilateral pleural effusions and dependent opacities -atelectasis -BUS OR TRUCK GARAGE MECHANIC lasix PRN -Currently on IV diuresis this admission -Volume status appears to be improving - likely transition to PO tomorrow Coronary Artery Disease -Remote history of CABG and subsequent PCIs -BUS OR TRUCK GARAGE MECHANIC lipitor 40 mg, coreg 25 mg BID, ranexa 500 mg BID History of PE -No BUS OR TRUCK GARAGE MECHANIC AC with history of ICH Elevated Troponin -Troponin 92, 83 -EKG afib RVR -ECHO pending Type 2 Diabetes -A1c 5.3 Hypertension -BUS OR TRUCK GARAGE MECHANIC coreg 25 mg BID Hyperlipidemia -BUS OR TRUCK GARAGE MECHANIC lipitor 40 mg Peripheral Vascular Disease -s/p recent left AKA Plan: Check ECHO Holding rate slowing medications Continue telemetry Reduce IV diuresis to daily - likely transition to PO tomorrow May need eventual EP consult for consideration of PPM Further input from Dr. Pascual Harris, EDUCATIONAL PSYCHOLOGY PROFESSOR Heart and Vascular 06/24/2025 Disposition Perspective - [...] assessment and plan of theadvanced practitioner. Skyler Montoya is a 84 y.o. female w/ a [...] Hs Trop 92-83 NT Pro BNP [phone] [facility] 11/25/2022- 1. CAD s/p CABG 2 [...] AIRWAY PLACEMENT Routine 05/24/2025 8:13 AM EDT AR AMPUTATION THIGH THROUGH FEMUR ANY LEVEL 05/24/2025 [...] progress. Palliative Care Consult Note Consult Location: [facility] Length of Stay: 12 - chart review complete. Referring Provider: MD Maryann Assessment: Skyler Montoya is a 84 y.o. female with PVD [...] helpful to explore this further with floor Research Geologist.Support provided along with [facility] role. Patient reports [...] Wound Dehiscence Pt presents per ems from [facility], toes amputated on left foot,here for wound check. History of Present Illness: Skyler Montoya is a 84 y.o. female with + [...] Paroxysmal atrial fibrillation (HCC) Coronary arteriosclerosis in [place] artery // Hx of CABG Type 2 [...] true Transportation Needs: No Transportation Needs (05/01/2025) [facility] Transportation In the past 12 months, has lack of reliable transportation kept you frommedical appointments, meetings, work or from getting things needed fordaily living?: No Physical Activity: Inactive (05/01/2025) Exercise Vital Sign Days of Exercise per Week: 0 days Minutes of Exercise per Session: 0 min Stress: No Stress Concern Present (05/01/2025) [facility] [place] of Occupational Health - Occupational StressQuestionnaire Feeling of Stress : Not at all Social Connections: Low Risk (10/30/2023) Received from [facility] ([place], [place], [place], [place]) Family and Community Support Help with Day to Day Activities: Not on file Feeling Lonely or Isolated: Not on file Intimate Partner Violence: Not At Risk (08/06/2024) Received from [facility] Humiliation, Afraid, Rape, and Kick questionnaire Fear of Current or Ex-Partner: No Emotionally Abused: No Physically Abused: No Sexually Abused: No Housing Stability: Low Risk (08/06/2024) Received from [facility] Housing Stability Vital Sign Unable to [...] original note were not included. Name: Skyler Montoya ADDRESS: [address] [place] [address] : 1940 AGE: 84 y.o. Hospital: [facility] Requesting Attending: Dr. Aguirre Primary Care Physician: No Pcp, Per Patient Date of Admission: 04/30/2025 Date of Consultation: 05/03/2025 Admitting Diagnosis: Diabetic foot infection (HCC) Chief Complaint / Reason for Consult: PAD HISTORY OF PRESENT ILLNESS History of Presenting Illness: Skyler Montoya is a(n) 84 y.o. poor historian with PMH significant foratrial fibrillation, arthritis, CHF, diabetes mellitus, HTN, Lfrontotemporal hemorrhagic contusion, bilateral SAH and SDH in January4at . She is known to our vascular service for PAD with ulcer statuspost LLE angiogram with BUS OR TRUCK GARAGE MECHANIC of peroneal, tibioperoneal trunk andpopliteal arteries on [...] History: 01/30/2025 - Left LE angiogram with BUS OR TRUCK GARAGE MECHANIC of peroneal and tibioperoneal trunkwith 1.5 x 80 mm and 2 x 200 balloons. BUS OR TRUCK GARAGE MECHANIC of the popliteal artery with3.5 x 120 [...] Not Taking nalOXone (NARCAN) 4 mg/actuation Nasl [place], Non-Aerosol 0.1 mL by Nasalroute as needed for Opioid Reversal. [place] the contents of one device(0.1mL) into one nostril upon signs of opioid overdose. Call 911. Mayrepeat dose in other nostril if no response within 2-3 minutes. 1 Each 0 nalOXone (NARCAN) 4 mg/actuation Nasl [place], Non-Aerosol 0.1 mL by Nasalroute as needed for Opioid Reversal. [place] the contents of one device(0.1mL) into one [...] mg 300 mg Oral Nightly Jose Guillermo, RIM ROLLER SETTER 300 mg at 05/02/252153 glucagon (GLUCAGEN) injection [...] 1 Drop 1 DropOphthalmic Nightly Alyson Guillermo RIM ROLLER SETTER 1 Drop at 05/01/252238 LORazepam (ATIVAN) tablet [...] IR REVAS FEM POP ART UNILAT W BUS OR TRUCK GARAGE MECHANIC 01/30/2025 IR REVAS FEM POP ART UNILAT W BUS OR TRUCK GARAGE MECHANIC 01/30/2025 Vargas Wolf MD [facility] IR IR [...] was seen in coordination with the physician library clerical assistant/nursepractitioner. Patient with LLE angiogram with BUS OR TRUCK GARAGE MECHANIC of popliteal, TPT and peroneal artery01/29 s/p [...] original note were not included. Name: Skyler Montoya Inpatient consult to Podiatry Consult performed by: [...] time Discussed with Dr Onofre CC: Skyler Montoya is a 84 y.o. female, well-known to [...] left foot; Surgeon: Tony Mills DPM; Location: [facility] MAIN OR; Service: Podiatry FOOT SURGERY Left 03/17/2025 left transmetatarsal amputation revision; Surgeon: Irineo Perez DPM; Location: [facility] MAIN OR; Service: Podiatry HYSTERECTOMY IR ANGIOGRAM EXTREMITY LEFT 01/30/2025 IR ANGIOGRAM EXTREMITY LEFT 01/30/2025 Vargas Wolf MD [facility] IR IR ANGIOGRAM FEMORAL ARTERIO SHIFT 01/17/2025 IR ANGIOGRAM FEMORAL ARTERIO SHIFT 01/17/2025 Vargas Wolf MD [place] IR REVAS FEM POP ART UNILAT W BUS OR TRUCK GARAGE MECHANIC 01/30/2025 IR REVAS FEM POP ART UNILAT W BUS OR TRUCK GARAGE MECHANIC 01/30/2025 Vargas Wolf MD [facility] IR IR [...] true Transportation Needs: No Transportation Needs (05/01/2025) [facility] Transportation In the past 12 months, has lack of reliable transportation kept you frommedical appointments, meetings, work or from getting things needed fordaily living?: No Physical Activity: Inactive (05/01/2025) Exercise Vital Sign Days of Exercise per Week: 0 days Minutes of Exercise per Session: 0 min Stress: No Stress Concern Present (05/01/2025) [facility] [place] of Occupational Health - Occupational StressQuestionnaire Feeling of Stress : Not at all Received from [facility] ([place], [place], [place], [place]) Family and Community Support Intimate Partner Violence: Not At Risk (08/06/2024) Received from [facility] Humiliation, Afraid, Rape, and Kick questionnaire Fear of Current or Ex-Partner: No Emotionally Abused: No Physically Abused: No Sexually Abused: No Housing Stability: Low Risk (08/06/2024) Received from [facility] Housing Stability Vital Sign Unable to [...] consented permission allowing today's photographs - usingthe Kojami mathew. Lab and radiographic data reviewed. Thank you for asking me to participate in your patient's care. Jovanni Montesinos, EDUCATIONAL PSYCHOLOGY PROFESSOR 05/01/2025 BLOOD GAS, VENOUS STAT 04/30/2025 5:56 [...] of91 resultswithin the time period is included. [facility] Glucose Meter POC 112(H) 70 - 100 [...] TEST ORDERABLES Final Result Performing Organization Address City/[facility] Co de Phone Number [facility] [address] [phone] * ECG AND WAVEFORMS - TELEMETRY (07/01/2025 7:05 PM EDT) Only the most recent of114 resultswithin the time period is included. Pathologist [facility] ECG INTERPRET Sinus Arrythmia [facility] 07/01/2025 7:05 PM EDT Narrative [facility] - 07/01/2025 7:37 PM EDT ROUTINE/PAC/PVC/af AR 0.18 QRS 0.09 RR 0.58 QT 0.35 QTc 0.46 See Clinical Report link for waveform capture Unknown Provider POINT OF CARE CARDIOLOGY Final Result Performing Organization Address City/[facility]/ZIP Co de Phone Number [facility] [address] [place] [address] * (ABNORMAL) COMPREHENSIVE METABOLIC PANEL [...] recommended by the National Kidney Foundation - [place] Society of Nephrology Task Force. Blood VENOUS BLOOD / Unknown Venipuncture / Unknown 07/01/2025 10:56 AM EDT 07/01/2025 10:59 AM EDT us Jacob Horowitz MD CHEMISTRY ORDERABLES Final Resul t [facility] [address] [facility] [place] [address] * (ABNORMAL) CBC WITH DIFF (06/28/2025 11:26 AM EDT) Only the most recent of6 resultswithin the time period is included. WBC 4.3 3.7 - 10.3 x10(3)/mcL 06/28/2025 11:33 AM EDT [facility] RBC 2.62(L) 3.90 - 5.20 x10(6)/mcL 06/28/2025 11:33 AM EDT [facility] Hgb 9.7(L) 11.2 - 15.7 g/dL 06/28/2025 11:33 AM EDT [facility] Hct 30.2(L) 34.0 - 45.0 % 06/28/2025 11:33 AM EDT [facility] MCV 115.3(H) 80.0 - 100.0 fL 06/28/2025 11:33 AM EDT [facility] MCH 37.0(H) 26.0 - 34.0 pg 06/28/2025 11:33 AM EDT [facility] MCHC 32.1 30.7 - 35.5 g/dL 06/28/2025 11:33 AM EDT [facility] RDW 18.9(H) <=14.9 % 06/28/2025 11:33 AM EDT [facility] Platelet 86(L) 155 - 369 x10(3)/mcL 06/28/2025 11:33 AM EDT [facility] MPV 11.8 8.8 - 12.5 fL 06/28/2025 11:33 AM EDT [facility] Neut Percent 52.1 % 06/28/2025 11:33 AM EDT [facility] Comment:Neutrophils equals s egs plus bands Imm Gran% 0.5 % 06/28/2025 11:33 AM EDT [facility] Comment:Automated count of m etamyelocytes, myelocytes and promyelocytes. Lymph Percent 40.1 % 06/28/2025 11:33 AM EDT [facility] Rich Percent 6.6 % 06/28/2025 11:33 AM EDT [facility] Eos Percent 0.2 % 06/28/2025 11:33 AM EDT [facility] Baso Percent 0.5 % 06/28/2025 11:33 AM EDT [facility] Neut # 2.2 1.6 - 6.1 x10(3)/[facility] 06/28/2025 11:33 AM EDT [facility] Comment:Neutrophils equals s egs plus bands IMMGRAN# 0.0 0.0 - 0.1 x10(3)/[facility] 06/28/2025 11:33 AM EDT [facility] Comment:Automated count of m etamyelocytes, myelocytes and promyelocytes. An absolute IG <0.1 is reported as 0.0. Lymph # 1.7 1.2 - 3.9 x10(3)/[facility] 06/28/2025 11:33 AM EDT [facility] Rich # 0.3 0.3 - 0.9 x10(3)/[facility] 06/28/2025 11:33 AM EDT [facility] Eos# 0.0 0.0 - 0.5 x10(3)/[facility] 06/28/2025 11:33 AM EDT [facility] Baso # 0.0 0.0 - 0.1 x10(3)/[facility] 06/28/2025 11:33 AM EDT [facility] Blood VENOUS BLOOD / Unknown Venipuncture / Unknown 06/28/2025 11:26 AM EDT 06/28/2025 11:30 AM EDT us Jacob Horowitz MD HEMATOLOGY ORDERABLES Final Resu lt [facility] [address] [place] [address] * PHOSPHORUS LEVEL (06/28/2025 11:26 AM EDT) Only the most recent of5 resultswithin the time period is included. Phosphorus 2.6 2.5 - 4.5 mg/dL 06/28/2025 11:55 AM EDT [facility] Blood VENOUS BLOOD / Unknown Venipuncture / Unknown 06/28/2025 11:26 AM EDT 06/28/2025 11:30 AM EDT Jacob Horowitz MD CHEMISTRY ORDERABLES Final Resul t Performing Organization Address [facility] de Phone Number [facility] [address] [place] [address] * MAGNESIUM LEVEL (06/28/2025 11:26 AM EDT) Only the most recent of14 resultswithin the time period is included. Magnesium 1.8 1.6 - 2.4 mg/dL 06/28/2025 12:04 PM EDT [facility] Blood VENOUS BLOOD / Unknown Venipuncture / Unknown 06/28/2025 11:26 AM EDT 06/28/2025 11:30 AM EDT Jacob Horowitz MD CHEMISTRY ORDERABLES Final Resul t Performing Organization Address [facility] de Phone Number [facility] [address] [place] [address] * EXTRA LAVENDER (06/27/2025 8:28 AM EDT) Blood VENOUS BLOOD / Unknown Venipuncture / Unknown 06/27/2025 8:28 AM EDT 06/27/2025 8:36 AM EDT Duong Vitale MD HEMATOLOGY ORDERABLES Final R esult Performing Organization Address City/[facility] de Phone Number [facility] [address] [place] [address] * (ABNORMAL) BASIC METABOLIC PANEL (06/27/2025 8:28 [...] recommended by the National Kidney Foundation - [place] Society of Nephrology Task Force. Blood VENOUS BLOOD / Unknown Venipuncture / Unknown 06/27/2025 8:28 AM EDT 06/27/2025 8:35 AM EDT Lianet Harris EDUCATIONAL PSYCHOLOGY PROFESSOR CHEMISTRY ORDERABLES Fi nal Result [facility] [address] [place], [place] [id number] * POTASSIUM LEVEL (06/26/2025 2:27 PM EDT) Only the most recent of2 resultswithin the time period is included. Potassium 4.5 3.5 - 5.0 mmol/L 06/26/2025 2:46 PM EDT [facility] Blood VENOUS BLOOD / Unknown Venipuncture / Unknown 06/26/2025 2:27 PM EDT 06/26/2025 2:34 PM EDT us Jacob Horowitz MD CHEMISTRY ORDERABLES Final Resul t [facility] [address] [place] [address] * US RENAL AND [...] evaluation of the kidneys and bladder with paper sales representative images and pipe cutter notes sent to PACS for radiologist review. [...] sonographic evaluation of the kidneys andbladder with paper sales representative images and pipe cutter notes sent to PACS forradiologist review. FINDINGS: [...] the ordering clinician. us Antoine Ferraro PA-C [facility] US ORDERABLES F inal Result * (ABNORMAL) [...] ORDERABLES Final R esult Performing Organization Address [facility] Co de Phone Number [facility] [address] [place] [address] * (ABNORMAL) NT PROBNP (06/26/2025 6:31 AM EDT) Only the most recent of4 resultswithin the time period is included. NT Pro-BNP 7,743(H) <=624 pg/mL 06/26/2025 7:09 AM EDT [facility] Blood VENOUS BLOOD / Unknown [...] ORDERABLES Final Re sult Performing Organization Address [facility] Co de Phone Number [facility] [address] [place] [address] * EEG ED/ICU REMOTE MONITORING (06/25/2025 [...] without any parasagittal coverage (rapid EEG - Notable Limitedibell device). Computer selected EEG is reviewed as well as background features and all clinically significant events. TECHNICAL SUMMARY: This is a 10 channel referential and bipolar EEG recorded in a digital format on the Notable LimitedibPicodeon device. This device is designed to detect [...] 06/25/2025 11:06 AM EDT us Gabby Heredia EDUCATIONAL PSYCHOLOGY PROFESSOR CHEMISTRY ORDERABLES Final Resul t [facility] [address] [place] [address] * CT HEAD WO CONTRAST (06/24/2025 2:37 [...] ORDERABLES Final Resu lt Performing Organization Address City/[facility]/ZIP Co de Phone Number [facility] [address] [place] [address] * (ABNORMAL) TSH REFLEX TO FT4 (06/24/2025 5:10 AM EDT) TSH Reflex 10.400(H) 0.270 - 4.200 mcIU/mL 06/24/2025 2:51 PM EDT [facility] [employer] Blood VENOUS BLOOD / Unknown Venipuncture / Unknown 06/24/2025 5:10 AM EDT 06/24/2025 5:32 AM EDT Narrative [facility] [employer] - 06/24/2025 2:51 PM EDT Ingestion of angie doses of biotin (>5 mg/day) taken within 8 hours of drawing blood sample can interfere with this immunoassay test. Lianet Harris APRN CHEMISTRY ORDERABLES Fi nal Result Performing Organization Address [facility] de Phone Number [facility] [address] [place] [address] , [place] [address] * TRIGLYCERIDES (06/24/2025 5:10 AM EDT) Triglyceride 107 <150 mg/dL 06/24/2025 8:05 AM EDT [facility] Comment: < 150 Normal 150 - 199 Borderline High 200 - 499 High >= 500 Very High Blood VENOUS BLOOD / Unknown Venipuncture / Unknown 06/24/2025 5:10 AM EDT 06/24/2025 5:32 AM EDT us Donnie Esqueda MD CHEMISTRY ORDERABLES Final Re sult Performing Organization Address City/[facility]/ZIP Co de Phone Number [facility] [address] [facility] , [place] [address] * T4, FREE (THYROXINE) (06/24/2025 5:10 AM EDT) Free T4 0.98 0.80 - 1.80 ng/dL 06/24/2025 3:36 PM EDT [facility] Blood VENOUS BLOOD / Unknown Venipuncture / Unknown 06/24/2025 5:10 AM EDT 06/24/2025 5:32 AM EDT Narrative [facility] - 06/24/2025 3:36 PM EDT Ingestion of angie doses of biotin (>5 mg/day) taken within 8 hours of drawing blood sample can interfere with this immunoassay test. Lianet Harris EDUCATIONAL PSYCHOLOGY PROFESSOR CHEMISTRY ORDERABLES Fi nal Result [facility] [address] , [place] [address] * XR CHEST AP PORTABLE (06/24/2025 4:17 [...] AM EDT Impressions 06/24/2025 8:09 AM EDT [place] Test Date: 2025-06-24 Pat Name: SKYLER ALCAZARLIVAN Department: DEPID Room: [facility] Gender: Female Assistant Media Buyer: Reza : 1940 Requested By: DONNIE ESQUEDA Order Number: [id number] Reading MD: Sukh Garner Measurements Intervals [place] Rate: 54 P: 0 AR: 0 QRS: 39 QRSD: 89 T: 0 [...] [place] Test Date: 2025-06-24 Pat Name: SKYLER MONTOYA Department: DEPID Room: [facility] Gender: Female Assistant Media Buyer: Reza : 1940 Requested By: DONNIE ESQUEDA Order Number: [id number] Reading MD: Sukh Garner Measurements Intervals [place] Rate: 54 P: 0 AR: 0 QRS: 39 QRSD: 89 T: 0 [...] Appear Clear Clear 06/23/2025 5:33 PM EDT [facility]A Glucose Negative Negative mg/dL 06/23/2025 5:33 PM EDT [facility]A Ketones Negative Negative mg/dL 06/23/2025 5:33 PM EDT [facility] Blood Negative Negative 06/23/2025 5:33 PM EDT [facility] pH 6.5 5.0 - 8.0 pH 06/23/2025 5:33 PM EDT [facility] UA Protein Negative Negative mg/dL 06/23/2025 5:33 PM EDT [facility]A Urobilinogen Normal <=1 mg/dL 5:33 PM EDT [facility]A Bili Negative Negative 06/23/2025 5:33 PM EDT [facility]A Nitrite Negative Negative 06/23/2025 5:33 PM EDT [facility]A Leuk Est Negative Negative 06/23/2025 5:33 PM EDT [facility] Spec Grav 1.011 1.001 - 1.035 no units 06/23/2025 5:33 PM EDT [facility] Comment:Reference range helga d for [...] URINE ORDERABLES Final Result Performing Organization Address City/[facility] Co de Phone Number [facility] [address] [place] [address] * EXTRA HUITRON URINE CX (06/23/2025 5:11 PM EDT) Only the most recent of6 resultswithin the time period is included. Urine STRUCTURE OF URINARY TRACT PROPER / Unknown 06/23/2025 5:11 PM EDT 06/23/2025 5:29 PM EDT Duong Vitale MD MICROBIOLOGY - GENERAL ORDERA BLES Final Result Performing Organization Address [facility] de Phone Number [facility] [address] [place] [address] * (ABNORMAL) TROPONIN-T HIGH SENSITIVITY 2HR (06/23/2025 4:11 PM EDT) Only the most recent of3 resultswithin the time period is included. vw-kVinwsufc-A 2HR 83(H) <14 ng/L 06/23/2025 4:36 PM EDT [facility] hs-cTnT 2Hr Delta from Baseline -9 <4 ng/L 06/23/2025 4:36 PM EDT [facility] Blood VENOUS BLOOD / Unknown Venipuncture / Unknown 06/23/2025 4:11 PM EDT 06/23/2025 4:14 PM EDT Narrative [facility] - 06/23/2025 4:36 PM EDT Ingestion of angie doses of biotin (>5 mg/day) taken within 8 hours of drawing blood sample can interfere with this immunoassay test. us Stephan Rodriguez MD CHEMISTRY ORDERABLES Final R esult [facility] [address] [facility] [place] [address] * CT ANGIOGRAM PULMONARY [...] Isovue 370 IV contrast as recorded in [employer]. 2-D multiplanar reconstructions and 3-D MIP reconstructions reviewed. Dose 1 : CT DLP Total : 109.65 mGycm DLP Spiral Max : 96.21 mGycm Maximum CTDI Vol : 9.53 mGy FINDINGS: Adequate visualization of the pulmonary arteries to the segmental/subsegmental level. No acute pulmonary embolism. No aortic arch aneurysm. No pneumothorax. Small left and pfzyo-uq-mfdxmkxi right pleural effusions. Emphysema. 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 Small left and tgwsg-td-agzhlnmc right pleuraleffusions. Emphysema. Opacities dependently in the [...] of3 resultswithin the time period is included. vx-nQrlhbqfk-M 92(H) <14 ng/L 06/23/2025 2:10 PM EDT [...] Rodriguez MD CHEMISTRY ORDERABLES Final R esult [facility] [address] [place] [address] * (ABNORMAL) PARTIAL THROMBOPLASTIN TIME (06/23/2025 1:28 PM EDT) Pathologist [facility] PTT 37.0(H) 25.7 - 36.8 second(s) 06/23/2025 [...] Performing Organization Address [facility] de Phone Number [facility] [address] [place] [address] * (ABNORMAL) PT / INR (06/23/2025 1:28 [...] Performing Organization Address [facility] de Phone Number [facility] [address] [place] [address] * (ABNORMAL) D-DIMER (06/23/2025 1:28 PM EDT) [...] HEMATOLOGY ORDERABLES Final Result Performing Organization Address City/State/[facility] Co de Phone Number [facility] [address] [phone] * CT CERVICAL SPINE WO CONTRAST (06/12/2025 [...] Res ult [facility] [address] [place] [address] * AMMONIA LEVEL (06/12/2025 9:22 PM EDT) Pathologist [facility] Ammonia 15 11 - 51 mcmol/L 06/12/2025 9:50 PM EDT [facility] Blood VENOUS BLOOD / Unknown Venipuncture / Unknown 06/12/2025 9:22 PM EDT 06/12/2025 9:29 PM EDT us Rhina Gooden DO CHEMISTRY ORDERABLES Final Res ult [facility] [address] [place] [address] * (ABNORMAL) URINE CULTURE (NO STAIN) (06/12/2025 9:11 PM EDT) Only the most recent of4 resultswithin the time period is included. [facility] Culture Positive Growth(A) 06/15/2025 12:51 PM EDT [facility] [place] Culture >100,000 CFU/mL Klebsiella pneumoniae SUSCEPTIB ILITY RESULT 06/15/2025 12:51 PM EDT [facility], [facility] Culture >100,000 CFU/mL Proteus mirabilis SUSCEPTIB ILITY [...] MICROBIOLOGY - GENERAL ORDERAB LES Final Result [facility] [employer] [address] [place] [address] , [place] [address] * SCANNED RHYTHM STRIPS (06/11/2025 1:28 PM [...] - 23 mg/dL 06/04/2025 8:30 AM EDT [facility] Creatinine 0.92 0.51 - 1.30 mg/dL 06/04/2025 8:30 AM EDT [facility] Albumin 3.1(L) 3.2 - 4.6 gm/dL 06/04/2025 8:30 AM EDT [facility] Phosphorus 3.7 2.5 - 4.5 mg/dL 06/04/2025 8:30 AM EDT [facility] eGFR (CKD-EPIcr 2020) 61 >=60 mL/min/1.7 3 m2 06/04/2025 8:30 AM EDT [facility] Comment:Estimated GFR was ca lculated using the CKD-EPIcr (2020) equation refit without race. The equation is recommended by the National Kidney Foundation - [place] Society of Nephrology Task Force. Blood VENOUS BLOOD / Unknown Venipuncture / Unknown 06/04/2025 7:52 AM EDT 06/04/2025 7:57 AM EDT us Stephen Pickard MD CHEMISTRY ORDERABLES Final R esult [address] , [place] [address] * VANCOMYCIN LEVEL AUC1 (05/29/2025 5:55 AM EDT) [facility] Vancomycin AUC1 12.6 mcg/mL 6:54 AM EDT [facility] Blood VENOUS STRUCTURE / Unknown Line / Unknown 05/29/2025 5:55 AM EDT 05/29/2025 6:09 AM EDT us Stephen Pickard MD CHEMISTRY ORDERABLES Final R esult Performing Organization Address City/[facility]/ZIP Co de Phone Number [facility] [address] [facility] , [place] [address] * (ABNORMAL) HEMOGLOBIN AND HEMATOCRIT (05/29/2025 12:48 AM EDT) Only the most recent of5 resultswithin the time period is included. Hgb 8.2(L) 11.2 - 15.7 g/dL 05/29/2025 12:53 AM EDT [facility] Hct 25.5(L) 34.0 - 45.0 % 05/29/2025 12:53 AM EDT [facility] [id number] [facility] Blood VENOUS BLOOD / Unknown Venipuncture / Unknown 05/29/2025 12:48 AM EDT 05/29/2025 12:48 AM EDT Michael Beltre MD HEMATOLOGY ORDERABLES Fin al Result Performing Organization Address [facility] Co de Phone Number [facility] [employer] , [place] [address] * (ABNORMAL) HEMOGLOBIN (05/28/2025 2:51 PM EDT) Only the most recent of3 resultswithin the time period is included. Hgb 7.5(L) 11.2 - 15.7 g/dL 05/28/2025 4:08 PM EDT [facility] Blood VENOUS BLOOD / Unknown Venipuncture / Unknown 05/28/2025 2:51 PM EDT 05/28/2025 4:00 PM EDT Stephen Pickard MD HEMATOLOGY ORDERABLES Final Result Performing Organization Address [facility] Co de Phone Number [facility] [employer] [facility] , [place] [address] * VANCOMYCIN LEVEL (05/27/2025 12:01 PM EDT) Vanco Random 8.4 mcg/mL 05/27/2025 12:24 PM EDT [facility] Blood VENOUS BLOOD / Unknown Venipuncture / Unknown 05/27/2025 12:01 PM EDT 05/27/2025 12:12 PM EDT Luis Manuel Mays MD CHEMISTRY ORDERABLES Final Re sult Performing Organization Address City/State/[facility] Co de Phone Number [facility] [address] [place] [address] * EC ECHOCARDIOGRAM COMPLETE W DOPPLER AND [...] 60 Min 29.60 mcg/dL 8:26 PM EDT [facility] [employer] [facility] Blood VENOUS STRUCTURE / Unknown Venipuncture / Unknown 05/26/2025 7:36 PM EDT 05/26/2025 7:43 PM EDT Narrative [facility] [employer] [facility] - 05/26/2025 8:26 PM EDT Test performed using [employer] Elecsys Cortisol II assay. Stimulated cortisol reference value not established by this laboratory. us Stephen Pickard MD CHEMISTRY ORDERABLES Final R esult Performing Organization Address City/[facility]/ZIP Co de Phone Number [facility] [employer] , [place] [address] * CORTISOL 30 MINUTES (05/26/2025 7:05 PM EDT) Cortisol 30 Min 25.20 mcg/dL 8:03 PM EDT [facility] [employer] [facility] Blood VENOUS BLOOD / Unknown Venipuncture / Unknown 05/26/2025 7:05 PM EDT 05/26/2025 7:19 PM EDT Narrative [facility] [employer] [facility] - 05/26/2025 8:03 PM EDT Test performed using [employer] Ele[employer] Cortisol II assay. Stimulated cortisol reference value not established by this laboratory. us Stephen Pickard MD CHEMISTRY ORDERABLES Final R esult Performing Organization Address City/[facility]/ZIP Co de Phone Number [facility] [employer] [facility] , [place] [address] * CORTISOL BASELINE (05/26/2025 6:49 PM EDT) Cortisol Baseline 11.20 mcg/dL 05/26/2025 7:39 PM EDT [facility] [employer] [facility] Blood VENOUS BLOOD / Unknown Venipuncture / Unknown 05/26/2025 6:49 PM EDT 05/26/2025 6:49 PM EDT Narrative [facility] [employer] [facility] - 05/26/2025 7:39 PM EDT AM: 4.82 [...] us Stephen Pickard MD CHEMISTRY ORDERABLES Final [facility] Performing Organization Address [facility] Co de Phone Number [facility] [employer] [address], [place] [address] * (ABNORMAL) TROPONIN-T HIGH SENSITIVITY 6 HR (05/26/2025 6:26 PM EDT) [facility] tg-[id number] 6HR 59(H) <14 ng/L 05/26/2025 6:55 PM EDT [facility] hs-cTnT 6Hr Delta from Baseline -3 <12 ng/L 05/26/2025 6:55 PM EDT [facility] Blood VENOUS STRUCTURE / Unknown Venipuncture / Unknown 05/26/2025 6:26 PM EDT 05/26/2025 6:39 PM EDT Narrative [facility] - 05/26/2025 6:55 PM EDT Ingestion of angie doses of biotin (>5 mg/day) taken within 8 hours of drawing blood sample can interfere with this immunoassay test. us Stephen Pickard MD CHEMISTRY ORDERABLES Final [facility] Performing Organization Address [facility] Co de Phone Number [address] [address] * STAPHYLOCOCCUS AUREUS SCREEN (05/26/2025 4:24 PM EDT) Pathologist [facility] Staph aureus PCR Not Detected Not Detected 05/26/2025 6:20 PM ED[address] [facility] [employer], [facility] MRSA PCR Not Detected Not Detected 05/26/2025 6:20 PM [address] [facility] [employer], [facility] Swab BOTH ANTERIOR NARES / Unknown 05/26/2025 4:24 PM EDT 05/26/2025 4:40 PM EDT Narrative [facility] - 05/26/2025 6:20 PM EDT Staphylococcus aureus target DNA sequence is not detected. This qualitative assay is intended for the detection of Staphylococcus aureus proprietary sequences for the staphylococcal protein A (spa) gene, the gene for methicillin resistance (mecA), and the staphylococcal cassette chromosome mec (SCCmec) inserted into the SA chromosomal attB site. This assay utilizes real time PCR on the [employer] GeneXpert Infinity, and its performance has been verified by the [facility]. A negative result does [...] has been developed and validated by the [facility] laboratory. Detailed methodology is available upon request. Luis Manuel Mays MD MICROBIOLOGY - GENERAL ORDERA BLES Final Result Performing Organization Address City/[facility]/ZIP Co de Phone Number [facility] [employer], [address] , [place] [address] * IONIZED CALCIUM - INPATIENT (05/26/2025 4:17 PM EDT) Pathologist [facility] Calcium Ionized 1.13 1.12 - 1.32 mmol/L 05/26/2025 4:29 [address] [facility] [employer], [facility] Blood VENOUS BLOOD / Unknown Venipuncture / Unknown 05/26/2025 4:17 PM EDT 05/26/2025 4:25 PM EDT Luis Manuel Mays MD CHEMISTRY ORDERABLES Final Re sult [facility] [address] [facility] , [address] [place] [id number] * BB HISTORY CHECK (05/26/2025 4:17 PM EDT) Only the most recent of2 resultswithin the time period is included. [facility] BB HISTORY CHECK (1) Previous History OK 05/26/2025 11:40 PM EDT [facility] Blood VENOUS BLOOD / Unknown Venipuncture / Unknown 05/26/2025 4:17 PM EDT 05/26/2025 4:21 PM EDT us Luis Manuel Mays MD BLOOD BANK ORDERABLES Final R esult Performing Organization Address [facility] Co de Phone Number [facility] [address] [place] [address] * POTASSIUM WHOLE BLOOD (05/26/2025 4:17 PM EDT) [facility] K-WB 4.6 3.5 - 5.0 mEq/L 05/26/2025 4:29 PM EDT [facility] Blood VENOUS BLOOD / Unknown Venipuncture / Unknown 05/26/2025 4:17 PM EDT 05/26/2025 4:25 PM EDT us Luis Manuel Mays MD CHEMISTRY ORDERABLES Final Re sult Performing Organization Address City/[facility]/ZIP Co de Phone Number [facility] [address] [place] [address] , [place] [address] * ABORH (05/26/2025 4:17 PM EDT) Only the most recent of2 resultswithin the time period is included. [facility] ABORH Int A POS 05/26/2025 11:40 PM EDT [facility] Blood VENOUS BLOOD / Unknown Venipuncture / Unknown 05/26/2025 4:17 PM EDT 05/26/2025 4:21 PM EDT Luis Manuel Mays MD BLOOD BANK ORDERABLES Final R esult Performing Organization Address [facility] [place] [address] * FIBRINOGEN (05/26/2025 4:17 PM EDT) Only the most recent of2 resultswithin the time period is included. Fibrinogen 312 196 - 444 mg/dL 05/26/2025 4:38 PM EDT [facility] [employer] Blood VENOUS BLOOD / Unknown Venipuncture / Unknown 05/26/2025 4:17 PM EDT 05/26/2025 4:21 PM EDT Stephen Pickard MD HEMATOLOGY ORDERABLES Final Result Performing Organization Address [facility] Co de Phone Number [facility] [employer] [address], [place] [address] * RED BLOOD CELLS REQUEST (05/26/2025 4:17 PM EDT) Only the most recent of4 resultswithin the time period is included. Product Code [id number] [facility] BLOOD BANK Unit Number [id number] [facility] Crossmatch Interp Compatible [facility] Dispense Status RETURNED [facility] Blood Expiration Date [id number] [facility] ISBT 128 Type 6200 [facility] BLOOD [facility] Blood Unit Volume 300 ml [facility] BA CODING SYSTEM [id number] [facility] Blood Type (Unit) A POS [facility] 05/26/2025 4:17 PM EDT 05/26/2025 4:21 PM EDT Luis Manuel Mays MD BLOOD PRODUCT ORDERS Final Re sult Performing Organization Address [facility]/ZIP Co de Phone Number [facility] [place] [place] [address] * ANTIBODY SCREEN IGG (05/26/2025 4:17 PM EDT) Only the most recent of2 resultswithin the time period is included. [facility] ABSC IgG Int Negative 05/26/2025 11:40 PM EDT [facility] Blood VENOUS BLOOD / Unknown Venipuncture / Unknown 05/26/2025 4:17 PM EDT 05/26/2025 4:21 PM EDT Luis Manuel Mays MD BLOOD BANK ORDERABLES Final R esult Performing Organization Address City/[facility]/ZIP Co de Phone Number [facility] [address] [place] [address] * (ABNORMAL) ADRENOCORTICOTROPIC HORMONE -REF LAB (05/26/2025 3:20 PM EDT) [facility] ACTH 3.3(L) 7.2 - 63.3 pg/mL 05/28/2025 7:58 PM EDT [employer] Comment: INTERPRETIVE INFORMATION: Adrenocorticotropic Hormone Reference interval based on samples collected between 7 a.m. and 10 a.m. No reference intervals established for p.m. collections. Pediatric reference values are the same as adults (Acta Paediatr Scand 1981;70:341-345). This assay measures intact ACTH 1-39; some types of synthetic ACTH and ACTH fragments are not detected by this assay. Performed By: [facility] [address] [place] [address] Dynamometer Tester Engine: Gigi Cheney MD, PhD CLIA Number: [id number] Blood VENOUS BLOOD / Unknown Venipuncture / Unknown 05/26/2025 3:20 PM EDT 05/26/2025 3:23 PM EDT Stephen Pickard MD CHEMISTRY ORDERABLES Final R esult Performing Organization Address City/[facility]/ZIP Co de Phone Number [facility] [address] [place], [place] [phone] * CORTISOL (05/26/2025 2:11 PM EDT) [facility] Cortisol 7.55 mcg/dL 05/26/2025 2:5 1 PM EDT [facility] [employer] [facility] Blood VENOUS BLOOD / Unknown Venipuncture / Unknown 05/26/2025 2:11 PM EDT 05/26/2025 2:15 PM EDT Narrative [facility] [employer] [facility] - 05/26/2025 2:51 PM EDT AM: 4.82 [...] Pickard MD CHEMISTRY ORDERABLES Final R esult [facility] [employer] [facility] [address] [facility] , [place] [address] * (ABNORMAL) HEPATIC FUNCTION PANEL (05/26/2025 2:11 PM EDT) [facility] Total Protein 4.9(L) 6.4 - 8.3 gm/dL 05/26/2025 6:41 PM EDT [facility] [employer], [facility] Albumin 2.9(L) 3.2 - 4.6 gm/dL 05/26/2025 6:41 PM EDT [facility] [employer], [facility] Bili Direct 0.4(H) 0.0 - 0.3 mg/dL 05/26/2025 6:41 PM EDT [facility] [employer], [facility] Bili Total 0.8 0.2 - 1.3 mg/dL 05/26/2025 6:41 PM EDT [facility] [employer], [facility] AST 16 <=40 U/L 05/26/2025 6:41 PM EDT [facility] [employer], [facility] ALT 9 <=41 U/L 05/26/2025 6:41 PM EDT [facility] [employer] THERAPEUTICSJEDI MIND Alk Phos 103 36 - 123 U/L 05/26/2025 6:41 PM EDT [facility] Blood VENOUS BLOOD / Unknown Venipuncture / Unknown 05/26/2025 2:11 PM EDT 05/26/2025 2:15 PM EDT Luis Manuel Mays MD CHEMISTRY ORDERABLES Final Re sult [facility] [address] [facility] , [place] [address] * PROCALCITONIN (05/26/2025 1:00 PM EDT) Only the most recent of2 resultswithin the time period is included. Procalcitonin 0.08 <=0.49 ng/mL 05/26/2025 1:55 PM EDT [facility] Blood VENOUS BLOOD / Unknown Venipuncture / Unknown 05/26/2025 1:00 PM EDT 05/26/2025 1:18 PM EDT Narrative [facility] [employer] - 05/26/2025 1:55 PM EDT Procalcitonin <0.50 [...] ORDERABLES Final R esult Performing Organization Address [facility] Co de Phone Number [facility] [employer] [address], [place] [address] * BLOOD CULTURE (NO STAIN) (05/26/2025 11:58 AM EDT) Only the most recent of4 resultswithin the time period is included. Culture Result No Growth at 120 hours. BLOOD CULTURE (NO STAIN) 05/31/2025 1:00 PM EDT [facility] Blood VENOUS BLOOD / Unknown Venipuncture / Unknown 05/26/2025 11:58 AM EDT 05/26/2025 12:03 PM EDT us Stephen Pickard MD MICROBIOLOGY - GENERAL ORDER CELESTE Final Result Performing Organization Address [facility] de Phone Number [facility] [employer] [address] , [place] [address] * TRANSFUSE RED BLOOD CELLS (05/24/2025 10:43 AM EDT) Only the most recent of2 resultswithin the time period is included. Vargas Wolf MD NURSING TREATMENT ORDERABLE S - BLOOD ADMIN Edited Result - Final * PATHOLOGY TISSUE REQUEST (05/24/2025 8:41 AM EDT) CASE REPORT Surgical Pathology Case: [id number] Authorizing Provider: Vargas Wolf MD Collected: 05/24/2025 0841 Ordering Location: [facility] Received: 05/24/2025 1101 Pathologist: Addie Barakat MD Specimen: Leg, Left, Left Leg and knee 05/29/2025 3:42 PM EDT [facility] FINAL DIAGNOSIS Left leg and knee, [id number] amputation: - Ulcer and soft tissue necrosis at previous amputation site. - Atherosclerosis. - Focal areas of necrosis and acute inflammation consistent with acute osteomyelitis. - Skin and soft tissue margins are viable. - Bone margin is negative for acute osteomyelitis. 05/29/2025 3:42 PM EDT [facility] at 1542 EDT GROSS DESCRIPTION [...] soft tissue margins; Green - femoral vessels; Apache - anterior tibial vessels; Black - posterior [...] diffusely calcified and up to 95% stenotic. Senior Data Analyst sections are submitted as follows: A1: Bone marrow from margin, in a biopsy bag and following Decal Stat A2: Skin and soft tissue margin, perpendicularly sectioned A3: Lesion to underlying bone, following Decal Stat A4: Mid cross sections of vessels with stenotic and calcified areas, following Decal Stat Kesha Cerda MS, PA (ASC) 05/27/2025 05/29/2025 3:42 PM EDT [facility] MICROSCOPIC DESCRIPTION The microscopic examination may have been rendered in whole, or in part, by analyzing high-resolution digital images (whole slide images) on the [employer] Digital Pathology platform validated at [facility]. 05/29/2025 3:42 PM EDT [facility] EMBEDDED IMAGES 05/29/2025 3:42 PM EDT [facility] Tissue STRUCTURE OF LEFT LOWER LEG / Unknown 05/24/2025 8:41 AM EDT 05/24/2025 11:01 AM EDT us Vargas Wolf MD PATHOLOGY ORDERABLES Final Result Performing Organization Address [facility] Co de Phone Number [facility] [address] [place] [id number] [address] * INTRAOP AIRWAY PLACEMENT (05/24/2025 8:13 AM EDT) Narrative [facility] - 05/24/2025 8:13 AM EDT Maite Luna CRNA 05/24/2025 8:18 AM Intraop Airway Placement: Date/Time: 05/24/2025 8:13 AM Induction type: IV Pre-Oxygenation: Reverse trendelenberg Mask ventilation: Easy mask ventilation Airway type: LMA Topical Anesthetic/Lubricant: Lubricant jelly Airway location: Oral Device size: 3 Placement verified: Auscultation, End tidal CO2 and Symmetric chest wall motion Condition: Atraumatic and Unchanged Insertion attempts: 1 Title: MEDIA CONSULTANT Tano Justice DO AR ANESTHESIA Final Result Performing Organization Address [facility] de Phone Number [address] [address] * Peripheral Block by Anesthesia (05/24/2025 7:53 AM EDT) Narrative [facility] - 05/24/2025 7:53 AM EDT Tano [...] ORDERABLES Final R esult Performing Organization Address [facility] Co de Phone Number [facility] [address] [place] [address] * US ANES GUIDANCE FOR NERVE BLOCK [...] 05/21/2025 7:57 AM EDT [facility] TIBC 255 250 - 400 mcg/dL 05/21/2025 7:57 AM EDT [facility] Blood VENOUS BLOOD / Unknown Venipuncture / Unknown 05/21/2025 7:18 AM EDT 05/21/2025 7:22 AM EDT Carlos Manuel Landaverde II, MD CHEMISTRY ORDERABLES Mita l Result Performing Organization Address City/[facility]/ZIP Co de Phone Number [facility], [address], [address] [place] [phone] * VITAMIN B12/ FOLIC ACID (05/21/2025 7:18 AM EDT) Vitamin B12 806 232 - 1,245 pg/mL 05/21/2025 8:20 AM EDT [facility] [employer] Folate >16.00 >=4.80 ng/mL 05/21/2025 8:20 AM EDT [facility] [employer] Blood VENOUS BLOOD / Unknown Venipuncture / Unknown 05/21/2025 7:18 AM EDT 05/21/2025 7:22 AM EDT Narrative [facility] [employer] - 05/21/2025 8:20 AM EDT Ingestion of angie doses of biotin (>5 mg/day) taken within 8 hours of drawing blood sample can interfere with this immunoassay test. Carlos Manuel Landaverde II, MD CHEMISTRY ORDERABLES Mita l Result [facility] [employer] [address] [facility], [place] [address] * PERIPHERAL SMEAR/PATH REVIEW (05/21/2025 7:18 AM [...] Sujata Benitez MD 05/22/2025 5:33 PM EDT [facility] Blood VENOUS BLOOD / Unknown Venipuncture / Unknown 05/21/2025 7:18 AM EDT 05/21/2025 7:22 AM EDT us Stephen Pickard MD HEMATOLOGY ORDERABLES Final Result [place] [id number] * XR ABDOMEN AP (05/19/2025 8:00 AM [...] aortogram. Selection of L SFA via R TROUBLE LOCATER (3rd order) with left lower extremity angiogram. Selection of BUS OR TRUCK GARAGE MECHANIC with additional angiogram. Radiographic supervision and interpretation [...] TPT and peroneal artery, reconstitution of proximal BUS OR TRUCK GARAGE MECHANIC with mid and distal BUS OR TRUCK GARAGE MECHANIC with multifocal severe stenosis of proximal and mid BUS OR TRUCK GARAGE MECHANIC but occluded distally without reconstitution. Significant small [...] with severe stenosis, patent proximal and mid BUS OR TRUCK GARAGE MECHANIC with multifocal severe stenosis, patent peroneal artery Significant small vessel disease in L foot INDICATIONS: Skyler Montoya is a 84 y.o. female with PMHx significant for PAD s/p pelvic angiogram with bilateral NILAY stents s/p LLE angiogram with BUS OR TRUCK GARAGE MECHANIC of popliteal artery, TPT and peroneal artery [...] a hemostat. Under ultrasound guidance, the R TROUBLE LOCATER was accessed using a micropuncture needle. X-ray [...] an 11 cm 5 Fr sheath. Next, GreenDot Transson wire and Omniflush catheter were advanced to [...] and catheter were used to select the BUS OR TRUCK GARAGE MECHANIC to better evaluate if it reconstituted distally. After the BUS OR TRUCK GARAGE MECHANIC was selected, an angiogram was obtained, which [...] procedure. SUMMARY: Significant small vessel disease. Occluded BUS OR TRUCK GARAGE MECHANIC and DAREN distally without reconstitution. RECOMMENDATIONS: Bed rest for 3 hours. Recommend proximal LLE amputation. Voice recognition technology was used to complete this note, and it may contain unintended errors despite the insurance underwriter's best efforts to proofread it. Please contact me with questions. TID: [id number] us Vargas Wolf MD IMG IR ORDERABLES [...] aortogram. Selection of L SFA via R TROUBLE LOCATER (3rd order) with left lower extremity angiogram. Selection of BUS OR TRUCK GARAGE MECHANIC with additional angiogram. Radiographic supervision and interpretation [...] TPT and peroneal artery, reconstitution of proximal BUS OR TRUCK GARAGE MECHANIC with mid and distal BUS OR TRUCK GARAGE MECHANIC with multifocal severe stenosis of proximal and mid BUS OR TRUCK GARAGE MECHANIC but occluded distally without reconstitution. Significant small [...] with severe stenosis, patent proximal and mid BUS OR TRUCK GARAGE MECHANIC with multifocal severe stenosis, patent peroneal artery Significant small vessel disease in L foot INDICATIONS: Skyler Montoya is a 84 y.o. female with PMHx significant for PAD s/p pelvic angiogram with bilateral NILAY stents s/p LLE angiogram with BUS OR TRUCK GARAGE MECHANIC of popliteal artery, TPT and peroneal artery [...] a hemostat. Under ultrasound guidance, the R TROUBLE LOCATER was accessed using a micropuncture needle. X-ray [...] and catheter were used to select the BUS OR TRUCK GARAGE MECHANIC to better evaluate if it reconstituted distally. After the BUS OR TRUCK GARAGE MECHANIC was selected, an angiogram was obtained, which [...] procedure. SUMMARY: Significant small vessel disease. Occluded BUS OR TRUCK GARAGE MECHANIC and DAREN distally without reconstitution. RECOMMENDATIONS: Bed rest for 3 hours. Recommend proximal LLE amputation. Voice recognition technology was used to complete this note, and it may contain unintended errors despite the insurance underwriter's best efforts to proofread it. Please contact me with questions. TID: [id number] us Vargas Wolf MD IMG IR ORDERABLES [...] aortogram. Selection of L SFA via R TROUBLE LOCATER (3rd order) with left lower extremity angiogram. Selection of BUS OR TRUCK GARAGE MECHANIC with additional angiogram. Radiographic supervision and interpretation [...] TPT and peroneal artery, reconstitution of proximal BUS OR TRUCK GARAGE MECHANIC with mid and distal BUS OR TRUCK GARAGE MECHANIC with multifocal severe stenosis of proximal and mid BUS OR TRUCK GARAGE MECHANIC but occluded distally without reconstitution. Significant small [...] with severe stenosis, patent proximal and mid BUS OR TRUCK GARAGE MECHANIC with multifocal severe stenosis, patent peroneal artery Significant small vessel disease in L foot INDICATIONS: Skyler Montoya is a 84 y.o. female with PMHx significant for PAD s/p pelvic angiogram with bilateral NILAY stents s/p LLE angiogram with BUS OR TRUCK GARAGE MECHANIC of popliteal artery, TPT and peroneal artery [...] a hemostat. Under ultrasound guidance, the R TROUBLE LOCATER was accessed using a micropuncture needle. X-ray [...] an 11 cm 5 Fr sheath. Next, GreenDot Transson wire and Omniflush catheter were advanced to [...] and catheter were used to select the BUS OR TRUCK GARAGE MECHANIC to better evaluate if it reconstituted distally. After the BUS OR TRUCK GARAGE MECHANIC was selected, an angiogram was obtained, which [...] procedure. SUMMARY: Significant small vessel disease. Occluded BUS OR TRUCK GARAGE MECHANIC and DAREN distally without reconstitution. RECOMMENDATIONS: Bed rest for 3 hours. Recommend proximal LLE amputation. Voice recognition technology was used to complete this note, and it may contain unintended errors despite the insurance underwriter's best efforts to proofread it. Please contact me with questions. TID: [id number] us Vargas Wolf MD IMG IR ORDERABLES Final Res ult * INTRAOP AIRWAY PLACEMENT (05/10/2025 12:26 PM EDT) Narrative [facility] - 05/10/2025 12:26 PM EDT Tatum [...] Unchanged and Atraumatic Insertion attempts: 1 Title: MEDIA CONSULTANT us Manuel Noland MD AR ANESTHESIA Edited Result - Final [facility] [address] [place] [address] * POTASSIUM REPEAT (05/06/2025 9:19 AM EDT) Potassium 4.8 3.5 - 5.0 mmol/L 05/06/2025 9:56 AM EDT [facility] [employer] Blood VENOUS BLOOD / Unknown Venipuncture / Unknown 05/06/2025 9:19 AM EDT 05/06/2025 9:23 AM EDT us Geo Guallpa MD CHEMISTRY ORDERABLES Final Resul t [facility] [employer] [address] [facility] , [place] [address] * MRI FOOT LEFT WO CONTRAST (05/03/2025 [...] - 5.6 % 05/05/2025 3:53 PM EDT [facility] Est. Avg Glucose 105 mg/dL 05/05/2025 3:53 PM EDT [facility] Blood VENOUS BLOOD / Unknown Venipuncture / Unknown 05/03/2025 6:37 AM EDT 05/03/2025 7:14 AM EDT Narrative [facility] - 05/05/2025 3:53 PM EDT REFERENCE RANGE: Normal: 4.0-5.6% Pre-diabetes: 5.7-6.4% Provisional diagnosis of diabetes: >6.4% Hgb F>10% and anything which shortens red cell survival, such as hemolytic anemia, or unstable hemoglobin variants such as HbSS, HbSC, or HbCC, will lower the HbA1c value associated with a given level of glycemic control. Geo Guallpa MD CHEMISTRY ORDERABLES Final Resul t [facility] [address] [facility] , [place] [address] * [facility] LOWER EXTREMITY ARTERIAL DUPLEX COMPLETE (05/02/2025 11:07 [...] - 1.9 mmol/L 04/30/2025 8:06 PM EDT [facility] Blood VENOUS BLOOD / Unknown Venipuncture / Unknown 04/30/2025 7:30 PM EDT 04/30/2025 7:57 PM EDT us Donnie Kaur MD CHEMISTRY ORDERABLES Final Result [facility] [address] [place] [id number] * XR FOOT LEFT AP LATERAL AND [...] contactthe office of the ordering clinician. Result [facility] Donnie Kaur MD IMG DIAGNOSTIC IMAGIN G ORDERABLES Final Result * SEDIMENTATION RATE AUTOMATED (04/30/2025 5:15 PM EDT) Sed Rate 9 0 - 30 mm/hr 04/30/2025 5:42 PM EDT [facility] [employer] Blood VENOUS BLOOD / Unknown Venipuncture / Unknown 04/30/2025 5:15 PM EDT 04/30/2025 5:29 PM EDT Donnie Kaur MD HEMATOLOGY ORDERABLES Final Result Performing Organization Address [facility] Co de Phone Number [facility] [address] [place] [address] , [place] [address] * C-REACTIVE PROTEIN (04/30/2025 5:15 PM EDT) Pathologist [facility] CRP <3.00 <=5.00 mg/L 04/30/2025 6:08 PM EDT [facility] Blood VENOUS BLOOD / Unknown Venipuncture / Unknown 04/30/2025 5:15 PM EDT 04/30/2025 5:29 PM EDT Result [facility] Donnie Kaur MD CHEMISTRY ORDERABLES Final Result Performing Organization Address [facility] Co de Phone Number [facility] [address] [facility] , [place] [address] from Last 3 Months Additional Health Concerns Infection Onset Date Last Indicated ESBL organism Comment:ESBL urine: 05/23, 06/1205/23/2025 06/12/2025 [place] Advance Directives For more information, please contact: [phone] * DNR (Latest Code Status on File) [...] 3:51 PM 05/27/2025 3:19 PM Care Teams Activity Specialist Relationship Specialty Start Date End Date No Pcp, Per Patient PCP - General 06/04/24
--- OUTSIDE RECORDS SUMMARY | 2025-07-28 09:14 | XMS_ITS | Encounter Summary ---
Author Organization [employer] ([place], [place], [place], [place]) Address [address] [place] [address] Care Team Providers Care Operations Intern Name Role Phone Jay Howell MD Primary Care Provider [phone] Encounter Details Date Type Department Care Team (Late st Contact Info) Description 06/13/2020 Transcribed Document [facility] [place] Family Medicine [address] [place] [address] ProviderJessie MD [address] [place] [address] Social History Tobacco Use Types Packs/Day Years [...] EDT Electronically signed by Gayle Finnegan Conversion Early Intervention School Psychologist Cerner at 02/04/2023 1:59 PM CDT documented in this encounter Plan of Treatment Not on file documented as of this encounter Visit Diagnoses Not on filedocumented in this encounter Care Teams Operations Intern Relationship Specialty Start Date End Date Jay Howell MD [address] [place] [phone] PCP - General Emergency Medicine 11/12/23 documented as of this encounter
--- OUTSIDE RECORDS SUMMARY | 2025-07-28 09:14 | XMS_ITS | Encounter Summary ---
Author Organization [employer] ([place], [place], [place], [place]) Address [address] [place] [address] Care Team Providers Care Assistant Store Manager Operations Name Role Phone Jay Howell MD Primary Care Provider [phone] Encounter Details Date Type Department Care Team (Late st Contact Info) Description 06/13/2020 Transcribed Document [facility] [place] [address] [place] [address] ProviderJessie MD [address] [place] [address] Social History Tobacco Use Types Packs/Day Years [...] Legal Guardian : Responsible adult Support Person/Patient Captain Fishing Vessel : Yes Support Person/Pt Rep Name : Willard Contact Password : Marvin Support Person/Pt Rep Contact Information : [phone] Want Family/Rep/Phys Notified of Admit : No [...] Obtained From : Patient Primary Language : Wolof Preferred Communication Mode : Verbal Communication Barrier : None Beauty Operator Needed : No PAUL GERBER RN - [...] Scale Risk Level : 25-45 Medium Risk [place] Fall Interventions : Adequate lighting, Bed in [...] Source : Stated Height Entry Format : [place] Height, Feet : 5 ft(Converted to: 152 cm, 60 Inch) Height, Inches : 3 Inch(Converted to: 0 ft 3 Inch, 7.62 cm) Clinical Height : 160.02 cm Weight Source : Bed scale Weight Entry Format : [place] Clinical Dosing Weight : 75.32 kg Weight, Pounds : 165.7 lb Body Surface Area (BSA) : 1.79 m2 Body Mass Index : 29.4 kg/m2 (HI) [place] Body Weight : 52 kg PAUL GERBER [...] PAUL GERBER RN - 06/13/2020 3:09 EDT Ora Suicide Severity Rating Scale (C-SSRS) CSSRS Past [...] Any Spiritual/Cultural Needs or Requests : Yes Anabaptism Preference : [place]ze Spiritual/Cult Concerns/Desires/Needs : Prayer Spiritual/Cultural Needs Comment [...] filedocumented in this encounter Care Teams Assistant Store Manager Operations Relationship Specialty Start Date End Date Jay Howell MD [address] [place] [phone] PCP - General Emergency Medicine 11/12/23 documented as of this encounter
--- OUTSIDE RECORDS SUMMARY | 2025-07-28 09:14 | XMS_ITS | Encounter Summary ---
Author Organization [employer] ([place], [place], [place], [place]) Address [address] [place] [address] Care Team Providers Care Cartography/Mapping Technician Name Role Phone Jay Howell MD Primary Care Provider [phone] Encounter Details Date Type Department Care Team (Late st Contact Info) Description 06/13/2020 Transcribed Document [facility] [place] Family Medicine [address] [place] [address] ProviderJessie MD [address] [place] [address] Social History Tobacco Use Types Packs/Day Years [...] On: 06/13/2020 13:24 EDT by JEFE SHELTON, Water Mechanic-Noc Technician Initial Assessment I Previously Documented Living Environment [...] Listed? : Yes Medical Durable Power of Traffic Director Name : No JEFE SHELTON Water Mechanic-Noc Technician - 06/13/2020 13:24 EDT Initial Assessment II Sensory and Motor Deficits : Weakness Current Home Treatments and Equipment : CPAP, Walker JEFE SHELTON Water Mechanic-Noc Technician - 06/13/2020 13:24 EDT Discharge Needs I Anticipated Discharge To, CM : Home with home health Current Home Treatment/Equipment : Current Home Treatment/Equipment No qualifying data available. Post Acute/Home Treatments : None Documentation Status Complete : Yes JEFE SHELTON Social Worker-Noc Technician - 06/13/2020 13:24 EDT Discharge Needs II Professional Skilled Services : Professional Skilled Services No qualifying data available. Needs Assistance with Transportation : No Discharge Options Discussed with Patient : Acute rehabilitation, Discharge transportation, DME, Home Health, Short term rehabilitation JEFE SHELTON Water Mechanic-Noc Technician - 06/13/2020 13:24 EDT Narrative Note Narrative Note : Patient is a low readmission risk of 38. Patient reported that she had HH in 2008 after a hip replacement. Patient stated that she has also been inpatient at [facility]. Patient reported that she is ADL independent but uses a walker when she walks around the park. Patient reported that she has transportation home. She denied having any discharge needs. Cm will continue to follow. JEFE SHELTON Water Mechanic-Noc Technician - 06/13/2020 13:24 EDT documented in this encounter Plan of Treatment Not on file documented as of this encounter Visit Diagnoses Not on filedocumented in this encounter Care Teams Cartography/Mapping Technician Relationship Specialty Start Date End Date Jay Howell MD [address] [place] [phone] PCP - General Emergency Medicine 11/12/23 documented as of this encounter
--- OUTSIDE RECORDS SUMMARY | 2025-07-28 09:14 | XMS_ITS | Encounter Summary ---
Author Organization [employer] ([place], [place], [place], [place]) Address [address] [place] [address] Care Team Providers Care Baggage Handling Supervisor Name Role Phone Jay Howell MD Primary Care Provider [phone] Encounter Details Date Type Department Care Team (Late st Contact Info) Description 06/13/2020 Transcribed Document [facility] [place] Family Medicine [address] [place] [address] ProviderJessie MD [address] [place] [address] Social History Tobacco Use Types [...] Tobacco Cues : Verbalizes understanding Activities to [place] With Smoking Urges : Verbalizes understanding Basic [...] on filedocumented in this encounter Care Teams Baggage Handling Supervisor Relationship Specialty Start Date End Date Jay Howell MD [address] [place] [phone] PCP - General Emergency Medicine 11/12/23 documented as of this encounter
--- OUTSIDE RECORDS SUMMARY | 2025-07-28 09:14 | XMS_ITS | Encounter Summary ---
Author Organization [employer] ([place], [place], [place], [place]) Address [address] [place] [address] Care Team Providers Care Nail Technician Name Role Phone Jay Howell MD Primary Care Provider [phone] Encounter Details Date Type Department Care Team (Late st Contact Info) Description 06/13/2020 Transcribed Document [facility] [place] Family Medicine [address] [place] [address] Jessie Yuen MD [address] [place] [address] Social History Tobacco Use Types Packs/Day Years [...] Chart was reviewed. Time spent, 55 minutes. /[id number] MD MCKAY Priest/NABOR / MCKAY / BONILLAL CC: Dr. Avtar Moeller Electronically signed by [facility], [facility] Conversion Rehabilitation Team Lead Cerner at 02/04/2023 2:09 PM CDT documented in this encounter Plan of Treatment Not on file documented as of this encounter Visit Diagnoses Not on filedocumented in this encounter Care Teams Nail Technician Relationship Specialty Start Date End Date Jay Howell MD [address] [place] [phone] PCP - General Emergency Medicine 11/12/23 documented as of this encounter
--- OUTSIDE RECORDS SUMMARY | 2025-07-28 09:16 | XMS_ITS | Clinical Summary ---
Author Organization [facility] Address [address] [place] [address] Phone Care Team Providers Care Farmworker Diversified Crops Name Role Phone Smita ESCOBEDO, Jorje Arceo [ ] Conditions or Problems Problem Name Problem Code Onset Date Status Entry Date Provider Comment Standard Description Annotate Contusion of left lower leg, subsequent encounter(s) S80.12xD (ICD-10-CM) Active Arlen Feng Contusion of left lower leg, subsequent encounter Cellulitis of LLE L03.116 (ICD-10-CM) Active Arlen Feng Cellulitis of left lower limb DM II with diabetic PVD 132452084 (SNOMED CT) Active Arlen Feng Peripheral vascular disease Benign Essential Hypertension 9708837 (SNOMED CT) Active Arlen Feng Benign essential hypertension Medications Medication Instructions Start Date Stop Date Generic Name [facility] Provider VALSARTAN 160 MG TABS 1 tablet po daily VALSARTAN 76871045376 Leti Dela Cruz ALPRAZOLAM 0.5 MG TABS Take one by mouth daily/PRN ALPRAZOLAM 54403466145 Lexi Nascimentodox VIBRAMYCIN 100 MG ORAL CAPSULE Take by mouth twice a day DOXYCYCLINE HYCLATE 03248049865 Lexi Gipson TERBINAFINE HCL 250 MG TABS Take one by mouth daily TERBINAFINE HCL 92362732124 Lexi Gipson RANEXA 1000 MG ORAL TABLET EXTENDED RELEASE 12 HOUR Take by mouth twice a day RANOLAZINE 90672340919 Lexi Gipson CLOPIDOGREL BISULFATE 75 MG TABS Take one by mouth daily CLOPIDOGREL BISULFATE 10336095337 Lexi Nascimentodox OMEPRAZOLE 40 MG CPDR Take one by mouth daily OMEPRAZOLE 56564352104 Lexi Nascimentodox NORVASC 10 MG TABS Take one by mouth daily AMLODIPINE BESYLATE 56094064111 Lexi Nascimentodox HYDROCODONE-ACET AMINOPHEN 7.5-325 MG TABS Q6H/PRN HYDROCODONE-ACET AMINOPHEN 75044689710 Lexi Nascimentodox DAILY MULTIVITAMIN CAPS Take one by mouth daily MULTIPLE VITAMINS-MINERAL S 67887966516 Lexi Nascimentodox METFORMIN HCL 500 MG TABS Take by mouth twice a day METFORMIN HCL 22501226760 Lexi Thorpex LOVENOX 60 MG/0.6ML SUBCUTANEOUS SOLUTION 70 mg, SubCutaneous, Q12H ENOXAPARIN SODIUM 65455597150 Lexi Nascimentodox LOSARTAN POTASSIUM 100 MG TABS Take one by mouth daily LOSARTAN POTASSIUM 27790044768 Lexi Nascimentodox ACIDOPHILUS LACTOBACILLUS CAPS Take two by mouth daily LACTOBACILLUS 66085995099 Lexi Gipson HYDRALAZINE HCL 50 MG TABS 2 Tab, Oral, BID HYDRALAZINE HCL 32190665106 Lexi Thorpex DORZOLAMIDE HCL 2 % SOLN 1 Drop, Eye Right, BID DORZOLAMIDE HCL 97830206823 Lexi Nascimentodox WARFARIN SODIUM 3 MG TABS Take one by mouth daily WARFARIN SODIUM 42934319690 Lexi Nascimentodox CARVEDILOL 6.25 MG TABS Take one by mouth 3 times daily, morning, afternoon and evening. CARVEDILOL 17477829947 Lexi Nascimentodox ATORVASTATIN CALCIUM 80 MG TABS Take one by mouth daily ATORVASTATIN CALCIUM 07518760518 Lexi Gipson AMOXICILLIN-POT CLAVULANATE 875-125 MG TABS Take by mouth twice a day AMOXICILLIN-POT CLAVULANATE 28520052786 Lexi Gipson Medications Administered No information available. Allergies, Adverse Reactions, Alerts Allergy Name Reaction Description Start Date Severity Statu s Provider NITROFURANTOIN MACROCRYSTAL Moderate Active Lxei Gipson MORPHINE SULFATE (PF) Moderate Active Lexi [...]
--- OUTSIDE RECORDS SUMMARY | 2025-07-28 09:17 | XMS_ITS | Clinical Summary ---
Author Organization [employer] [facility] Address [address] [place] [address] Care Team Providers Care Assistant Department Manager Name Role Phone Jay Howell MD Primary Care Provider [phone] Allergies Active Allergy Reactions Criticality Noted Date Comments Morphine And Codeine Other (See Comments),Unknown - Low Severity,Unknown (See Comments) Low 2014 Listed per [facility]. Nitrofurantoin Unknown - Low Severity 11/08/2023 [...] 03/23/2024 History of pulmonary embolus (PE) 03/14/2024 shelter current use of anticoagulant Fatigue 03/14/2024 Atopic [...] of chest/PE protocol. Patient was sent to [facility] radiology department for CT scan today. [...] new referral to a cardiovascular surgeon at [facility]. She reports she has seen Dr. Mickey Alcantara in the past. Coronary artery disease invo lving coronary bypass graft of osage heart without angina pectoris 04/28/2023 Assessment & Plan (09/30/2023 4:12 PM EST): She is on Statin, BB,CCB, ARB, ASA, Ranexa, and Warfarin. Continue current medication. Assessment & Plan (05/02/2023 5:03 PM EDT): She has a known history of coronary artery disease. She has denied any chest pain. Her last heart catheterization was November 25, 2022 at [facility] in [place] showing: -[facility] 11[facility]- A. 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
--- OUTSIDE RECORDS SUMMARY | 2025-07-28 09:17 | XMS_ITS | Encounter Summary ---
Author Organization [employer] ([place], [place], [place], [place]) Address [address] [place] [address] Care Team Providers Care Supervisor Metal Placing Name Role Phone Jay Howell MD Primary Care Provider [phone] Encounter Details Date Type Department Care Team (Late st Contact Info) Description 08/22/2020 Transcribed Document [facility] [place] Family Medicine [address] [place] [address] ProviderJessie MD [address] [place] [address] Social History Tobacco Use Types Packs/Day Years Used Date Smoking Tobacco: Never Assessed Comments Unknown Sex and Gender Information Value Date Recorded Sex Assigned at Not on file Legal Sex Female 7:30 PM CDT Gender Identity Not on file Sexual Orientation Not on file documented as of this encounter Miscellaneous Notes * Cerner Conversion Note - Historical ProviderMD - 08/22/2020 8:49 PM FLAKEBOARD LINE TENDER Broset Violence Assessment Entered On: 08/22/2020 23:10 EST Performed On: 08/22/2020 23:10 EST by Noy Miguel Color Depositing Machine Tender Broset Violence Assessment Broset Violence Checklist of Symptoms : None Broset Violence Symptoms Subtotal : 0 Broset Violence Symptoms Indicator : Low risk (0) Noy Miguel Paramedic - 08/22/2020 23:10 EST Electronically signed by [facility] Conversion Oil Laboratory Analyst Cerner at 02/04/2023 1:55 PM CDT documented in this encounter Plan of Treatment Not on file documented as of this encounter Visit Diagnoses Not on filedocumented in this encounter Care Teams Supervisor Metal Placing Relationship Specialty Start Date End Date Jay Howell MD [address] [place] [phone] PCP - General Emergency Medicine 11/12/23 documented as of this encounter
--- OUTSIDE RECORDS SUMMARY | 2025-07-28 09:17 | XMS_ITS | Encounter Summary ---
Author Organization [employer] ([place], [place], [place], [place]) Address [address] [place] [address] Care Team Providers Care Freight Solicitor Name Role Phone Jay Howell MD Primary Care Provider [phone] Encounter Details Date Type Department Care Team (Late st Contact Info) Description 06/14/2020 Transcribed Document [facility] [place] Family Medicine [address] [place] [address] ProviderJessie MD [address] [place] [address] Social History Tobacco Use Types Packs/Day Years [...] : Yes Discharge To Care Management : Home/Residential/[facility]cf or Self Care -01 JENAE COREY CSW - 06/14/2020 8:53 EDT Final Narrative Note Final Narrative Note : Pt declined services. JENAE COREY CSW - 06/14/2020 8:53 EDT Electronically signed by [facility], [facility] Conversion Medicaid Analyst Cerner at 02/04/2023 2:06 PM CDT documented in this encounter Plan of Treatment Not on file documented as of this encounter Visit Diagnoses Not on filedocumented in this encounter Care Teams Freight Solicitor Relationship Specialty Start Date End Date Jay Howell MD [address] [place] [phone] PCP - General Emergency Medicine 11/12/23 documented as of this encounter
--- OUTSIDE RECORDS SUMMARY | 2025-07-28 09:17 | XMS_ITS | Encounter Summary ---
Author Organization [employer] ([place], [place], [place], [place]) Address [address] [place] [address] Care Team Providers Care Climate Change Risk Assessor Name Role Phone Jay Howell MD Primary Care Provider [phone] Encounter Details Date Type Department Care Team (Late st Contact Info) Description 08/22/2020 Transcribed Document [facility] [place] Family Medicine [address] [place] [address] ProviderJessie MD [address] [place] [address] Social History Tobacco Use Types Packs/Day Years Used Date Smoking Tobacco: Never Assessed Comments Unknown Sex and Gender Information Value Date Recorded Sex Assigned at Not on file Legal Sex Female 7:30 PM CDT Gender Identity Not on file Sexual Orientation Not on file documented as of this encounter Miscellaneous Notes * Cerner Conversion Note - Jessie ProviderMD - 08/22/2020 10:42 PM CODING QUALITY ANALYST Pain Assessment Entered On: 08/23/2020 1:08 EST [...] on filedocumented in this encounter Care Teams Climate Change Risk Assessor Relationship Specialty Start Date End Date Jay Howell MD [address] [place] [phone] PCP - General Emergency Medicine 11/12/23 documented as of this encounter
--- OUTSIDE RECORDS SUMMARY | 2025-07-28 09:17 | XMS_ITS | Encounter Summary ---
Author Organization [employer] ([place], [place], [place], [place]) Address [address] [place] [address] Care Team Providers Care Car Dumper Operator Name Role Phone Jay Howell MD Primary Care Provider [phone] Encounter Details Date Type Department Care Team (Late st Contact Info) Description 06/14/2020 Transcribed Document [facility] [place] [address] [place] [address] ProviderJessie MD [address] [place] [address] Social History Tobacco Use Types Packs/Day Years [...] 06/14/2020 14:23 EDT Electronically signed by [facility] Conversion 411 Directory Assistance Operator Cerner at 02/04/2023 2:18 PM CDT documented in this encounter Plan of Treatment Not on file documented as of this encounter Visit Diagnoses Not on filedocumented in this encounter Care Teams Car Dumper Operator Relationship Specialty Start Date End Date Jay Howell MD [address] [place] [phone] PCP - General Emergency Medicine 11/12/23 documented as of this encounter
--- OUTSIDE RECORDS SUMMARY | 2025-07-28 09:17 | XMS_ITS | Encounter Summary ---
Author Organization [employer] ([place], [place], [place], [place]) Address [address] [place] [address] Care Team Providers Care Marketing Business Analyst Name Role Phone Jay Howell MD Primary Care Provider [phone] Encounter Details Date Type Department Care Team (Late st Contact Info) Description 06/19/2020 Transcribed Document [facility] [place] [address] [place] [address] ProviderJessie MD [address] [place] [address] Social History Tobacco Use Types Packs/Day Years [...] provider. This is important. Medicines ??? Take spsa-iev-eiavocg and prescription medicines only as told by [...] 10/03/2006 Document Revised: 06/13/2019 Document Reviewed: 06/13/2019 [employer] Patient Education ? 2020 [employer]. documented in this encounter Plan of Treatment Not on file documented as of this encounter Visit Diagnoses Not on filedocumented in this encounter Care Teams Marketing Business Analyst Relationship Specialty Start Date End Date Jay Howell MD [address] [place] [phone] PCP - General Emergency Medicine 11/12/23 documented as of this encounter
--- OUTSIDE RECORDS SUMMARY | 2025-07-28 09:17 | XMS_ITS | Encounter Summary ---
Author Organization [employer] ([place], [place], [place], [place]) Address [address] [place] [address] Care Team Providers Care Manager Leasing Name Role Phone Jay Howell MD Primary Care Provider [phone] Encounter Details Date Type Department Care Team (Late st Contact Info) Description 08/22/2020 Transcribed Document [facility] [place] [address] [place] [address] ProviderJessie MD [address] [place] [address] Social History Tobacco Use Types Packs/Day Years Used Date Smoking Tobacco: Never Assessed Comments Unknown Sex and Gender Information Value Date Recorded Sex Assigned at Not on file Legal Sex Female 7:30 PM CDT Gender Identity Not on file Sexual Orientation Not on file documented as of this encounter Miscellaneous Notes * Cerner Conversion Note - Historical MD Alpa - 08/22/2020 10:50 PM TRAINS SERVICE CONDUCTOR Patient: SKYLER MONTOYA Age: 79 years Sex: [...] 06/13/2020 8:52 EVA LAWS RN PCI w/ [place] stent to D1 Coronary artery bypass graft ([id number]) in 1992 at 52 Years. femur repair. Appendectomy ([id number]). uterine suspension. Hysterectomy ([id number]). back surgury. Cholecystectomy ([id number]). Hip replacement ([id number]). cataract surgury.. Family history: Cardiomyopathy Child Stroke [...] EST Height Source Stated Height Entry Format [place]kean Height/Length, [place] (ft) 5 ft Height/Length [place] 3 Inch CLINICALHEIGHT 160.02 cm Walsh Body Weight 52.02 kg Weight Source, ED Critical estimated dosing weight Weight Entry Format Mckean Weight Ben[place] lb 154 lb CLINICALWEIGHT 70 kg Body [...] % 33.0 % Lymph # 2.33 x10(3)/uL Bacon % 10.1 % HI Bacon # 0.71 K/uL Eos % 2.1 % Eos # 0.15 x10(3)/uL Baso % 0.4 % Baso # 0.03 x10(3)/uL Slide Review No IG# 0.04 x10(3)/uL IG% 0.60 % . Radiology results: Left tib/fib: no fx or dl Left ankle: no fx or dl. [facility] [id number] was reviewed. Last entry 07/30/20 for norco [...] Medical Plan Condition: Improved, Stable. Prescriptions: Prescription [facility]: [place] 7.5 mg-325 mg oral tablet (Prescribe): 1 Tab, Oral, Q6H, for 3 Day(s), PRN: as needed for pain, 12 Tab, 0 Refill(s) clindamycin 300 mg oral capsule (Prescribe): 1 Cap, Oral, QID, for 7 Day(s), 28 Cap, 0 Refill(s), Prescription [facility]: Bactroban 2% topical ointment (Prescribe): 1 [...] filedocumented in this encounter Care Teams Manager Leasing Relationship Specialty Start Date End Date Jay Howell MD [address] [place] [phone] PCP - General Emergency Medicine 11/12/23 documented as of this encounter
--- OUTSIDE RECORDS SUMMARY | 2025-07-28 09:17 | XMS_ITS | Encounter Summary ---
Author Organization [employer] ([place], [place], [place], [place]) Address [address] [place] [address] Care Team Providers Care Fisher Dip Net Name Role Phone Jay Howell MD Primary Care Provider [phone] Encounter Details Date Type Department Care Team (Late st Contact Info) Description 02/13/2021 Transcribed Document [facility] [place] [facility] [place] [address] ProviderJessie MD [address] [place], [place] [address] Social History Tobacco Use Types Packs/Day Years [...] Source : Stated Height Entry Format : [place] Height, Feet : 5 ft(Converted to: 152 cm, 60 Inch) Height, Inches : 4 Inch(Converted to: 0 ft 4 Inch, 10.16 cm) Clinical Height : 162.56 cm Weight Source : Standing scale Weight Entry Format : [place] Clinical Dosing Weight : 71.64 kg Weight, Pounds : 157.6 lb Body Surface Area (BSA) : 1.77 m2 Body Mass Index : 27.1 kg/m2 (HI) [place] Body Weight : 54 kg Ludivina Tompkins [...] test? : No Ludivina Tompkins RN-PATIENT CARE [facility] NON-EXEMPT - 02/13/2021 10:47 EDT Anesthesia/Transfusion History Family History of Anesthesia Reaction : Prior transfusion reaction Type of Transfusion Reaction : Hemolytic reaction Transfusion History : Prior anesthesia without reaction Family History of Anesthesia Reaction : None Ludivina Tompkins RN-PATIENT CARE [facility] NON-EXEMPT - 02/13/2021 10:47 EDT Functional Assessment Living Situation : Home Current Home Treatments : Blood glucose monitoring, CPAP Ludivina Tompkins RN-PATIENT CARE [facility] NON-EXEMPT - 02/13/2021 10:47 EDT [place] Suicide Severity Rating Scale (C-SSRS) CSSRS Past Month Wish to be : No CSSRS Past Month Suicidal Thoughts : No CSSRS Lifetime Suicide Behavior : No Suicide Severity Rating Score : 0 Suicide Severity Rating : No Additional Care Required at this time Ludivina Tompkins RN-PATIENT CARE [facility] NON-EXEMPT - 02/13/2021 10:47 EDT Psychosocial History Chronic/Terminal Illness w/Freq Visits : No Currently in Unsafe Situation : No Ludivina Tompkins RN-PATIENT CARE [facility] NON-EXEMPT - 02/13/2021 10:47 EDT Advance Directive Patient has Advance Directive *Q : No, patient refuses Advance Directive information Ludivina Tompkins RN-PATIENT CARE [facility] NON-EXEMPT - 02/13/2021 10:47 EDT General Info Preferred Name : ilsa Support Person/Patient Rn Utilization Management Um : Yes Support Person/Pt Rep Name : Willard Contact Password : Marvin Support Person/Pt Rep Contact Information : [phone] Want Family/Rep/Phys Notified of Admit : No Emergency Contact #1 : Johnny Montoya Emergency Contact #1 Emergency Contact #1 Relationship : spouse Emergency Contact #2 : - Emergency Contact #2 Phone Number : - Emergency Contact #2 Relationship : - Primary Language : Georgian Preferred Communication Mode : Verbal Communication Barrier : None Diesel Engine I Pipe Fitter Needed : Ludivina Tong RN-PATIENT CARE BEDSIDE [...] Scale Risk Level : 25-45 Medium Risk [place] Fall Interventions : Adequate lighting, Bed in [...] filedocumented in this encounter Care Teams Fisher Dip Net Relationship Specialty Start Date End Date Jay Howell MD [address] [place] [phone] PCP - General Emergency Medicine 11/12/23 documented as of this encounter
--- OUTSIDE RECORDS SUMMARY | 2025-07-28 09:17 | XMS_ITS | Data Portability ---
Author Organization BEATRIZ JUANITA Benitez CRANDALL CLOSED Address [address] [place] [address] Care Team Providers Care Internet Marketing Strategist Name Role Phone KEVIN RIBERA Primary Care [...] sensitivity. Renal ultrasound to evaluate renal cysts. Not available 06/21/2022 15:32:33 Plan of Treatment Reminders Order Date Submit Date Provider Last Modified By Organization Details Last Modified Time Details Appointments None recorded. Lab culture, urine 2021 022 [facility], [facility], [place], [address], 13:37:11 urinalysis panel, auto 2021 022 [email or web address] 14 [facility]rology [facility] With [facility], [address] , [address], [place], [address], 15:32:26 Referral None recorded. Procedures None recorded. Surgeries None recorded. Imaging US, retroperito neum, limited - BILATERAL RENAL US W/O BLADDER CALL SKYLER BAUTISTA AT NO AUTHORIZATI ON REQUIRED. 2021 022 [facility] Centralized Scheduling, [address] , [place], [address], 09:04:59 XR, wrist, 2 view - patient in room 5 2020 021 DBA_BACKF [place]_ 07 Not available 03:33:26 Medication Orders None recorded. Patient TargetsNo targets recorded. Patient Instructions Encounter Date Encounter Id Patient Instructions Last Modified By Organization Details Last Modified Time 06/10/2022 [id number] learning about healthy weight [email or web address] Not available 06/21/2022 15:32:34 Reason for Referral [...] tivit y in progr ess. 06/13 See [facility] te Resul t(s) Below ISOLA CAPRI AND SENSI TIVIT Y RESUL TS [facility] te 01 Strep . agala ctiae (Grou p B) [facility] te 02 Esche manish a coli __ [facility] te ORG# 01 ORG# 02 ANTIB IOTIC [...] R Vanco mycin 0.5 S Not Available [facility] Laboratory [facility] [place], [address], 06/13/2022 13:37:11 06/10/20 22 06/10/2022 urina lysis panel , auto Unknown Analyte Clean Catch Not Available [facility]rology [place] With [address], [place], [address], 06/10/2022 18:27:47 06/10/20 22 06/10/2022 urina lysis panel , auto Unknown Analyte Yellow Not Available [facility] [place] With [address], [place], [address], 06/10/2022 18:27:47 06/10/20 22 06/10/2022 urina lysis panel , auto Unknown Analyte Clear Not Available [facility] With [address] Gisele Delacruz, [place], [address], 06/10/2022 18:27:47 06/10/20 22 06/10/2022 urina lysis panel , auto Unknown Analyte 1.025 Not Available [facility] With [address] Gisele Delacruz, [place], [address], 06/10/2022 18:27:47 06/10/20 22 06/10/2022 urina lysis panel , auto Unknown Analyte 1.003- 1.035 Not Available [facility] With [address] Gisele Delacruz, [place], [address], 06/10/2022 18:27:47 06/10/20 22 06/10/2022 urina lysis panel , auto Unknown Analyte 5.0 Not Available [facility] With [address] Gisele Delacruz, [place], [address], 06/10/2022 18:27:47 06/10/20 22 06/10/2022 urina lysis panel , auto Unknown Analyte 5.0-8. 0 Not Available [facility] With [address], [place], [address], 06/10/2022 18:27:47 06/10/20 22 06/10/2022 urina lysis panel , auto Unknown Analyte 75 Ion/ul (+) Not Available [facility] With [address], [place], [address], 06/10/2022 18:27:47 06/10/20 22 06/10/2022 urina lysis panel , auto Unknown Analyte Negati ve Not Available [facility] With [address], [place], [address], 06/10/2022 18:27:47 06/10/20 22 06/10/2022 urina lysis panel , auto Unknown Analyte Negati ve Not Available [facility] With [address] Gisele Delacruz, [place], [address], 06/10/2022 18:27:47 06/10/20 22 06/10/2022 urina lysis panel , auto Unknown Analyte Negati ve Not Available [facility] With [address] Gisele Delacruz, [place], [address], 06/10/2022 18:27:47 06/10/20 22 06/10/2022 urina lysis panel , auto Unknown Analyte 30 mg/dl (+) Not Available [facility] With [address] Gisele Delacruz, [place], [address], 06/10/2022 18:27:47 06/10/20 22 06/10/2022 urina lysis panel , auto Unknown Analyte Negati ve Not Available [facility] With [address], [place], [address], 06/10/2022 18:27:47 06/10/20 22 06/10/2022 urina lysis panel , auto Unknown Analyte Normal Not Available [facility] With [address] Gisele Delacruz, [place], [address], 06/10/2022 18:27:47 06/10/20 22 06/10/2022 urina lysis panel , auto Unknown Analyte Normal Not Available [facility] With [address] Gisele Delacruz, [place], [address], 06/10/2022 18:27:47 06/10/20 22 06/10/2022 urina lysis panel , auto Unknown Analyte 15 mg/dl (Sm) Not Available [facility] With [address] Jaquez F, [place], [address], 06/10/2022 18:27:47 06/10/20 22 06/10/2022 urina lysis panel , auto Unknown Analyte Negati ve Not Available [facility] With [address] Gisele Delacruz, [place], [address], 06/10/2022 18:27:47 06/10/20 22 06/10/2022 urina lysis panel , auto Unknown Analyte 1 mg/dl Not Available [facility] With [address] Gisele Delacruz, [place], [address], 06/10/2022 18:27:47 06/10/20 22 06/10/2022 urina lysis panel , auto Unknown Analyte Normal 1 mg/dl Not Available [facility] With [address], [place], [address], 06/10/2022 18:27:47 06/10/20 22 06/10/2022 urina lysis panel , auto Unknown Analyte 1 mg/dl (+) Not Available [facility] With [address], [place], [address], 06/10/2022 18:27:47 06/10/20 22 06/10/2022 urina lysis panel , auto Unknown Analyte Negati ve Not Available [facility] With [address], [place], [address], 06/10/2022 18:27:47 06/10/20 22 06/10/2022 urina lysis panel , auto Unknown Analyte Negati ve Not Available [facility] With [address], [place], [address], 06/10/2022 18:27:47 06/10/20 22 06/10/2022 urina lysis panel , auto Unknown Analyte Negati ve Not Available [facility] [address], [place], [address], 06/10/2022 18:27:47 03/24/20 21 03/24/2021 [facility] [address] [address] Patiyang t Name: SYKLER javed : [birth year] 39 Patiyang t Orderi [...] moser MD on 03/24/20 1:59 PM DBA_BACKFIL_ [facility] Radiology [place] [address] , [place], [address], 04/22/2022 03:33:26 03/24/20 21 03/24/2021 XR, wrist , 2 view [facility] [address] [place] [address] Patiyang t Name: SKYLER javed : [birth year] [...] moser MD on 03/24/20 3:47 PM DBA_BACKFIL_07 [facility] [place] [address] , [place], [address], 04/22/2022 03:33:26 03/31/20 21 03/31/2021 XR, wrist , 2 view [place] [facility] [address] [place] [address] Patiyang t Name: SKYLER FRANKS Patiyang javed [...] Matt moser MD on 1:41 PM DBA_BACKFIL [facility] [address] , [place], [address], 04/22/2022 03:33:26 04/10/2004/09/2021 XR, wrist , 2 view [facility] [address] [place] [address] Patien t Name: SKYLER javed : [birth year] [...] Matt moser MD on 8:23 AM DBA_BACKFIL [facility] [place] [address] , [place], [address], 04/22/2022 03:33:26 04/30/2004/30/2021 XR, wrist , 2 view [facility] [address] [place] [address] Patiyang javed Name: SKYLER javed : [birth year] [...] Matt moser MD on 1:22 PM DBA_BACKFIL_ [facility] [place] [address] , [place], [address], 04/22/2022 03:33:26 05/28/20 21 05/28/2021 XR, wrist , 2 view [place] [facility] [address] [place] [address] Liban javed Name: SKYLER javed : [birth year] [...] moser MD on 021 1:34 PM DBA_BACKFIL_ [facility] [place] [address] , [place], [address], 04/22/2022 03:33:28 06/15/20 22 06/15/2022 US, retro perit oneum , limit ed No observ ation record ed. [email or web address] [facility] (Radiology) [address] [place] [address] , [place], [address], 07/05/2022 12:06:03 Result Notes Documentation Provider Name and Address Organization Details Recorded Time Xr, Wrist, 2 View : [facility] [address] [place] [address] Patient Name: SKYLER BAUTISTA Patient : 1940 [...] Donovan Spivey MD ENY BEDOLLA PA-C [address] [place], [address], [facility] 03/31/2021 14:12:15 [facility]r, Wrist, 2 [facility] [address] [place] [address] Patient Name: SKYLER BAUTISTA Patient : 1940 [...] Donovan Spivey MD ENY BEDOLLA PA-C [address] [place], [address], [facility] 04/10/2021 08:34:27 Xr, Wrist, 2 View : [facility] [address] [place] [address] Patient Name: SKYLER BAUTISTA Patient : 1940 [...] Donovan Spivey MD ENY BEDOLLA PA-C [address] [place], [address], [facility] 04/30/2021 13:56:36 Xr, Wrist, 2 View : [facility] [place] [address] [place] [address] Patient Name: SKYLER BAUTISTA Patient : 1940 [...] Donovan Spivey MD ENY BEDOLLA PA-C [address] [facility] [place], [address], [facility] 05/28/2021 14:15:54 Problems Name Problem SNOMED Code Status Onset Date Resolution Date Notes Provider Name and Address Organization Details Recorded Time Low back pain 274442045 Active 2014 From Automated Load;Prov ider: Ron, Libby;St atus: Active Not Available [facility] 6 09:10:38 Dysuria 53883607 Active 2014 From Automated Load;Prov ider: Libby Velasquez;St atus: Active Not Available [facility] 6 09:10:38 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 From Automated Load;Prov ider: Libby Velasquez;St atus: Active Not Available [facility] 6 09:10:38 Asthenia 96127908 Active 2015 From Automated Load;Prov ider: Leonardo Mccormack;S tatus: Active Not Available [facility] 6 09:10:38 Headache 34656653 Active 2015 From Automated Load;Prov ider: Leonardo Mccormack;S tatus: Active Not Available [facility] 6 09:10:38 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 09409787685 07 Active 2015 From Automated Load;Prov ider: Leonardo Mccormack;S tatus: Active Not Available [facility] 6 09:10:38 Chest pain 87961343 Active 2015 From Automated Load;Prov ider: Ha Hagan;Sta tus: Active Not Available [facility] 6 09:10:38 Type 2 diabetes mellitus without complicat ion 515117444 Active 2015 From Automated Load;Prov ider: Ha Hagan;Sta tus: Active Not Available [facility] 6 09:10:38 Progressi ve angina 850729635 Active 2015 From Automated Load;Prov ider: Ha Hagan;Sta tus: Active Not Available [facility] 6 09:10:38 Hypertens ojhn disorder 67902045 Active 2015 From Automated Load;Prov ider: Ha Hagan;Sta tus: Active Not Available [facility] 6 09:10:39 Problem Notes None recorded. Procedures Surgical History Date Name Laterality Status Provider Name and Address Organization Details Recorded Time [facility] 09/15/2017 17:15:27 [facility] 09/15/2017 17:15:30 Heart Surgery completed [facility] 09/15/2017 17:15:37 [facility] 09/15/2017 17:15:51 Imaging Results None recorded. Procedure Notes None recorded. Medical Equipment None Reported. Allergies Allergen ID Allergen Name Allergen Category Reaction Reaction Severity Criticality Documentation Date Start Date Code Code System Note Provider Name and Address Organization Details Recorded Time 772278 morphine sulfate medicatio n Not available Not available Not available 09/10/20162014 26609 RxNorm Comme nt: Creat ed By: Ric Khanna hari Date: 2014 2:07: 08 PM; Not Available [facility] 6 02:59:47 149288 Macrobid medicatio n Not available Not available Not available 09/10/20162012 97318 1 RxNorm Comme nt: Creat ed By: Michelle Khanna hari Date: 2012 1:16: 18 PM; Not Available [facility] 6 04:55:10 Medications Name Sig Start Date [...] Updated DateTime 03/31/2021 160.02 cm 27.3 kg/m2 62567.22 g Celsa Andrewston [facility] 03/31/2021 13:36:09 Date Recorded Body height Body mass index (BMI) Body weight Provider Name and Address Organization Details Last Updated DateTime 04/09/2021 160.02 cm 27.1 kg/m2 57762.63 g Brenda Torres [facility] 04/09/2021 14:48:35 Date Recorded Body height Body mass index (BMI) Body weight Provider Name and Address Organization Details Last Updated DateTime 04/30/2021 160.02 cm 27.1 kg/m2 82744.63 g Celsa Mtz [facility] 04/30/2021 13:24:03 Date Recorded Body height Body mass index (BMI) Body weight Provider Name and Address Organization Details Last Updated DateTime 05/28/2021 160.02 cm 27.1 kg/m2 70215.63 g Celsa Rod [facility] 05/28/2021 13:24:49 Date Recorded Body height Body mass index (BMI) Body weight Provider Name and Address Organization Details Last Updated DateTime 06/10/2022 160.02 cm 27.1 kg/m2 95017.63 jana Salgado [facility] 06/10/2022 18:27:02 Social History Question Answer Notes LastModified by Organizat ion Details LastModified Time Tobacco Smoking Status Never Smoker Moo Davalos [facility] 09/15/2017 17:15:15 Marital Status petra [...] Condition Response Arthritis Y Blood Clot N Blood Thinners Y High Cholesterol Y Liver Disease N Kidney Disease Y Heart Conditions Y Heart Attack (MS) N Diabetes Y Bleeding Disorder N Asthma N Included as Review of Systems Y Hypertension Y Gynecological HistoryNo gynecological history recorded. Obstetrics History GPAL:G 0 P 0 0 0 0 Past Encounters Encounter ID Performer Location Encounter Start Date Encounter Closed Date Diagnosis/Indication Diagnosis SNOMED-CT Code Diagnosis ICD10 Code Diagnosis IMO Codes Diagnosis Note [id number] LIBBY VELASQUEZ MD [facility] [address] [place] [address] ,[place] [address] 09/15/2017 14:34:03 09/21/2017 12:06:33 Recurrent urinary tract infection 454486476 N39.0 Cystic dis ease of kidney 176281286 Q61.9 [id number] LIBBY VELASQUEZ MD [facility] [address] [address] 07/12/2019 14:05:14 08/07/2019 14:32:40 Urinary tract infectious disease 96707806 N39.0 Cyst of kidney 561208536 N28.1 [id number] LIBBY VELASQUEZ MD [facility] [address] ,[place] [address] 02/05/2021 15:05:46 02/06/2021 15:50:44 Recurrent urinary tract infection 782943344 N39.0 Multiple renal cysts 253 639559 N28.1 [id number] MARLENY BEDOLLA PA-C [facility] [address] [place] [address] 03/24/2021 13:16:15 03/24/2021 14:18:29 Closed fracture of distal end of right radius 0954056084 9761990 S52.501A DOI: 03/16/21 - mildly displaced distal radius fracture and displaced ulnar styloid fracture [id number] MARLENY BEDOLLA PA-C [facility] [address] [place] [address] 03/31/2021 13:30:25 03/31/2021 13:55:49 Closed fracture of distal end of right radius 1712226830 6925411 S52.501A DOI: 03/16/21 - mildly displaced distal radius fracture and displaced ulnar styloid fracture [id number] MARLENY BEDOLLA PA-C [facility] [address] [place] [address] 04/09/2021 14:15:17 04/09/2021 15:16:39 Closed fracture of distal end of right radius 6719213381 3355626 S52.501A DOI: 03/16/21 - mildly displaced distal radius fracture and displaced ulnar styloid fracture [id number] MARLENY BEDOLLA PA-C [facility] [address] [place] [address] 04/30/2021 13:02:15 04/30/2021 13:54:16 Closed fracture of distal end of right radius 6590419172 0682848 S52.501A DOI: 03/16/21 - mildly displaced distal radius fracture and displaced ulnar styloid fracture [id number] MARLENY BEDOLLA PA-C [facility] [address] [place] [address] 05/28/2021 13:19:59 05/28/2021 14:27:20 Closed fracture of distal end of right radius 4676342700 9286610 S52.501A DOI: 03/16/21 - mildly displaced distal radius fracture and displaced ulnar styloid fracture [id number] LIBBY VELASQUEZ MD [facility] [address] [place] [address],[place] [address] 06/10/2022 15:14:25 06/23/2022 11:14:33 Urinary tract infectious disease 73226594 N39.0 Cyst of kidney 515403184 N28.1 Health Concerns Section Related Observation LastModified by Organization Detai ls LastModified Time None Recorded Concern Status LastModified by Organization Details LastModified Time None Recorded Advance Directives Directive None Recorded Payers Insurance Date Sequence Insurance Name Policy Number Policy Rosen Covered Member ID Rosen Member ID Guarantor Name 01/15/2025 2 [employer] (MEDICARE SUPPLEMENT) Skyler Earl Jan [id number] Skyler Earl Jan 01/15/2025 1 [place] Skyler Ocampolivan [id number] Skyler Earl Jan Notes Date Note [...] No Currently employed?: Retired MARLENY BEDOLLA PA-C [address] [place] [address], [address], [facility] 04/01/2021 13:35:20 04/09/2021 text/html Patient returns today for fracture alignment recheck. She denies pain. Primary Care Physician: Dr. Moeller Hand dominance: Right Location: Right Wrist Pain level: 0 /10 Date of injury:03/16/21 Previous upper extremity surgery? No Currently employed?: Retired MARLENY BEDOLLA PA-C [address] [place] [address], [address], [facility] 04/14/2021 08:42:55 04/30/2021 text/html Patient returns today for fracture recheck. She reports continued compliance with casting restrictions and denies pain at this time. Primary Care Physician: Dr Moeller Hand dominance: Right Location: Right Wrist Pain level: 0 /10 Date of injury: 03/16/2021 Duration: 6 week(s) Recent Surgery: No Previous upper extremity surgery? No Currently employed?: Retired MARLENY BEDOLLA PA-C [address] [place] [address], [address], [facility] 05/05/2021 13:57:51 05/28/2021 text/html Patient returns today for fracture recheck. She denies pain and is pleased with significant improvement in function. Primary Care Physician: Dr Moeller Hand dominance: Right Location: Right Wrist Pain level: 0 /10 Date of injury: 03/16/2021 Duration: 10 week(s) Recent Surgery: No Previous upper extremity surgery? No Currently employed?: Retired MARLENY BEDOLLA PA-C [address] [place] [address], [address], [facility] 05/28/2021 14:17:52 06/10/2022 text/html 81-year-old female in the office for follow-up evaluation of recurrent urinary infections. She has history of renal cystic disease. She has bilateral back pain, left equal to right. She voids 2-3 times daily with nocturia up to 3 times nightly. She denies hesitancy. She has occasional dysuria.She has been seeing Dr. Macdonald at urology. LIBBY VELASQUEZ MD [address] [place] [address] [place], [address], [place] [facility] 06/21/2022 15:38:34 OBGyn Episode No OBEpisode recorded.
--- OUTSIDE RECORDS SUMMARY | 2025-07-28 09:17 | XMS_ITS | Encounter Summary ---
Author Organization [employer] ([place], [place], [place], [place]) Address [address] [place] [address] Care Team Providers Care Salon Assistant Name Role Phone Jay Howell MD Primary Care Provider [phone] Encounter Details Date Type Department Care Team (Late st Contact Info) Description 02/13/2021 Transcribed Document [facility] [place] Family Medicine [address] [place] [address] ProviderJessie MD [address], [place] [phone] Social History Tobacco Use Types Packs/Day Years Used Date Smoking Tobacco: Never Assessed Comments Unknown Sex and Gender Information Value Date Recorded Sex Assigned at Not on file Legal Sex Female 7:30 PM CDT Gender Identity Not on file Sexual Orientation Not on file documented as of this encounter Miscellaneous Notes * Cerner Conversion Note - Historical ProviderMD - 02/13/2021 11:43 AM CDT [facility] Saji IntraOp Summary Primary Physician: FABY GRIMM MD Finalized Date/Time: 02/13/21 12:03:45 Pt. Name: SKYLER MONTOYAO.B./Sex: 1940 Female Med Rec #: [id number] Physician: FABY GRIMM MD Financial #: [id number] Pt. Type: O Room/Bed: END/ Admit/Disch: 02/13/21 09:44:00 - Institution: [facility] - Case Attendance Entry 1 Entry 2 Entry 3 Case Attendee FABY GRIMM MD MILLER, MELISSA A RN ELVIN HUNG Role Performed Surgeon/Proceduralist, Bean Sorter, First Scrub, First First Time In 02/13/21 [...] SHANA M, STEPHANIE, Denisa Anderson Rn -ANS CHEMICAL APPLICATOR-ANS Role Performed Anesthesiologist of CHEMICAL APPLICATOR/Nurse Coater Operator Insulation Board Bean Sorter, First Record Time In 02/13/21 11:35:00 02/13/21 [...] RN 02/13/21 12:00:47 02/13/21 12:00:47 02/13/21 12:00:47 [facility] Endo - Case Attendance Audit 02/13/21 12:00:47 Excavator Backhoe Operator: [id number] Modifier: [id number] <+> Time Out 1 <*> Procedure [...] Biopsy, Colon Biopsy, Colon Polypectomy 02/13/21 12:00:36 Excavator Backhoe Operator: [id number] Modifier: [id number] 1 <*> Procedure Colonoscopy, Esophagogastroduodenoscopy, Esophageal Biopsy, Gastric Biopsy, Colon Biopsy 2 <*> Procedure Esophageal Biopsy, Gastric Biopsy, Colon Biopsy 3 <*> Procedure Esophageal Biopsy, Gastric Biopsy, Colon Biopsy 4 <*> Procedure Esophageal Biopsy, Gastric Biopsy, Colon Biopsy 5 <*> Procedure Esophageal Biopsy, Gastric Biopsy, Colon Biopsy 6 <*> Procedure Esophageal Biopsy, Gastric Biopsy, Colon Biopsy 02/13/21 11:58:05 Excavator Backhoe Operator: [id number] Modifier: [id number] 1 <*> Procedure Colonoscopy, Esophagogastroduodenoscopy <+> 2 Procedure <+> 3 Procedure <+> 4 Procedure <+> 5 Procedure <+> 6 Procedure 02/13/21 11:48:04 Excavator Backhoe Operator: [email or web address] Modifier: [id number] <+> Time In 1 <*> Procedure Colonoscopy, Esophagogastroduodenoscopy <+> 2 Time In <+> 2 Time Out <+> 3 Time In <+> 4 Time In <+> 5 Time In <+> 6 Case Attendee <+> 6 Role Performed <+> 6 Time In 02/13/21 11:38:46 Excavator Backhoe Operator: [email or web address] Modifier: [email or web address] <+> 2 Case Attendee <+> 2 Role Performed <+> 3 Case Attendee <+> 3 Role Performed <+> 4 Case Attendee <+> 4 Role Performed <+> 5 Case Attendee <+> 5 Role Performed [facility] End[facility] - Case times Entry 1 Patient In Room Time 02/13/21 11:35:00 Out Room Time 02/13/21 12:02:00 Anesthesia Start Time 02/13/21 11:35:00 Stop Time 02/13/21 12:02:00 Surgery / Procedure Times Start Time 02/13/21 11:43:00 Stop Time 02/13/21 12:00:00 Last Modified By: Denisa Anderson RN 02/13/21 12:00:45 [facility] Endo - Case times Audit 02/13/21 12:00:45 Excavator Backhoe Operator: [id number] Modifier: [id number] <+> 1 Out Room Time <+> 1 Stop Time <+> 1 Stop Time 02/13/21 11:45:26 Excavator Backhoe Operator: [email or web address] Modifier: [id number] <+> 1 Start Time [facility] Endo - Cautery Entry 1 ESU Identification Cautery Type Monopolar ESU ID Number [id number] ID Type Hospital Number Cautery Settings Cut Setting 5 Coag Setting 25 ESU Grounding Pad Ground Pad Type Adult Grounding Pad Site Right thigh Grounding Pad ELVIN HUNG Applied By Grounding Pad Site Warm, dry and intact Skin Condition Before Cautery Grounding Pad Site Unchanged Skin Condition After Cautery Last Modified By: Denisa Anderson RN 02/13/21 12:03:44 [facility] Endo - Cautery Audit 02/13/21 12:03:44 Excavator Backhoe Operator: [id number] Modifier: [id number] <+> 1 ID Number [facility] Endo - Cultures and Spec Summary Entry 1 Cultrures and Specimens Specimen Ordered: Yes Test(s) Routine/Path-Lab Requested/Final Disposition Last Modified By: Denisa Anderson RN 02/13/21 11:59:20 [facility] Endo - Delays Entry 1 Delay Reason Other, No Delay Duration 0 Minute(s) Last Modified By: LO HOFF RN 02/13/21 11:38:59 [facility] Endo - Departure from OR Entry 1 Integumentary Assessment Integumentary WDL Assessment WDL Transfer/Handoff Transfer to PACU Phase I Handoff Method Bedside/Face to face Post-op Transport Stretcher/Gurney Via Patient Transport LO HOFF RN, Accompanied by TRENTON GONZALEZ APRN, CHEMICAL APPLICATOR-ANS Last Modified By: LO HOFF RN 02/13/21 11:39:01 [facility] Endo - Endoscopy Details Entry 1 Abdomen Procedure Soft, Non-Tender Assessment Procedure Abdomen 02/13/21 11:39:00 Assessment D/T Radio Frequency Ablation Abdominal Pressure Last Modified By: LO HOFF RN 02/13/21 11:39:05 [facility] Endo - Fire Risk Assessment Entry 1 [...] Modified By: LO HOFF RN 02/13/21 11:39:08 [facility] Endo - General Case Emergency Medical Services Coordinator 1 Case Information OR Endo 01 [facility] Case Level 1 Room Verified Yes Wound Class III - Contaminated Specialty Gastroenterology Anesthesia Type General ASA Class 4 Diagnosis Preop Diagnosis dyspepsia, change in bowel habits Postop Same As Preop No Postop Diagnosis chronic gastritis, alexis's esophagus, IBS, colon polyp Last Modified By: Denisa Anderson RN 02/13/21 12:02:28 [facility] Endo - General Case Data Audit 02/13/21 12:02:28 Excavator Backhoe Operator: [email or web address] Modifier: [id number] 1 <*> Postop Same As Preop Yes 1 <*> Postop Diagnosis dyspepsia, change in bowel habits [facility] Endo - Intraoperative Assessment Entry 1 Valid History / Yes Physical in Chart Preoperative Yes Checklist Reviewed/Evaluated Patient is Latex No Sensitive Level of WDL Consciousness (WDL = Alert, Oriented to Person, Place, and Time) Last Modified By: LO HOFF RN 02/13/21 11:39:33 [facility] Endo - Intraoperative Equipment Entry 1 Equipment Intraop Monitoring Electrocardiogram Three lead placement (ECG) Electrode Placement Blood Pressure Arm, left upper Location Pulse Oximeter Hand, right Probe Site Antiembolic Devices Scopes Flexible Endoscopes Gastroscope Used Scope Serial E, P Number/Identificatio n Number Photo/Video Documentation Photo Yes Video No Last Modified By: LO HOFF RN 02/13/21 11:39:46 [facility] Endo - Patient Positioning Entry 1 Procedure [...] Modified By: LO HOFF RN 02/13/21 11:39:48 [facility] Endo - Sign In Entry 1 Patient, Site, Yes Procedure Identified Surgical Consent Yes Confirmed Surgical Site N/A Marked by person performing procedure Airway Hypothermia Risk No Warming Measures No Taken Last Modified By: LO HOFF RN 02/13/21 11:39:54 [facility] Endo - Sign Out Entry 1 RN [...] Modified By: Denisa Anderson RN 02/13/21 12:01:16 [facility] Endo - Surgical Procedures Entry 1 Entry [...] RN 02/13/21 12:01:06 02/13/21 12:01:06 02/13/21 12:01:06 [facility] Endo - Surgical Procedures Audit 02/13/21 12:01:06 Excavator Backhoe Operator: [id number] Modifier: [id number] <+> 1 Stop <+> 3 Stop <+> 4 Stop <+> 5 Stop <+> 6 Stop 02/13/21 12:00:33 Excavator Backhoe Operator: [id number] Modifier: [id number] <+> 6 Procedure <+> 6 Primary Procedure <+> 6 Primary Surgeon <+> 6 Specialty <+> 6 Start <+> 6 Wound Class <+> 6 Anesthesia Type <+> 6 Additional Procedure Description <+> 6 Physician States Cecum Reached 02/13/21 11:58:01 Excavator Backhoe Operator: [email or web address] Modifier: [id number] 1 <*> Procedure Colonoscopy 1 <+> Start [...] Anesthesia Type <+> 5 Additional Procedure Description [facility] Endo - Time Out Entry 1 Procedure [...] Signed By: Denisa Anderson RN 02/13/21 12:03 documented in this encounter Plan of Treatment Not on file documented as of this encounter Visit Diagnoses Not on filedocumented in this encounter Care Teams Salon Assistant Relationship Specialty Start Date End Date Jay Howell MD [address] [place] [phone] PCP - General Emergency Medicine 11/12/23 documented as of this encounter
--- OUTSIDE RECORDS SUMMARY | 2025-07-28 09:17 | XMS_ITS | Encounter Summary ---
Author Organization [employer] ([place], [place], [place], [place]) Address [address] [place] [address] Care Team Providers Care Paper Slitter Name Role Phone Jay Howell MD Primary Care Provider [phone] Encounter Details Date Type Department Care Team (Late st Contact Info) Description 03/03/2021 Transcribed Document [facility] [place] [address] [place] [address] ProviderJessie MD [address] [place] [phone] Social History Tobacco Use Types Packs/Day Years [...] 03/03/2021 5:06 PM CDT Electronically signed by [facility] Conversion Government Employee Cerner at 02/04/2023 2:08 PM CDT documented in this encounter Plan of Treatment Not on file documented as of this encounter Visit Diagnoses Not on filedocumented in this encounter Care Teams Paper Slitter Relationship Specialty Start Date End Date Jay Howell MD [address] [place] [phone] PCP - General Emergency Medicine 11/12/23 documented as of this encounter
--- OUTSIDE RECORDS SUMMARY | 2025-07-28 09:17 | XMS_ITS | Encounter Summary ---
Author Organization [facility] Address [address] [place] [address] Care Team Providers Care Gang Pusher Name Role Phone Jay Howell MD Primary Care Provider [phone] Encounter Details Date Type Department Care Team (Late st Contact Info) Description 06/08/[address] [facility] HISTORICAL CONV [address] [place] [address] Interface, See Report Social History [...] Amado M.D. ' Kailey Ruff APRN [address], [address] [place] [address] [employer] NEW PATIENT EVALUATION SKYLER MONTOYA : 1940 DATE OF VISIT: 06/08/2012 REFERRING PHYSICIAN: Dr. Avtar Moeller PROBLEMS: 1. History of pulmonary embolus. a. Pulmonary embolus diagnosed February 2011 at [facility]. b. Details incomplete. 2. Warfarin therapy. [...] was evidently diagnosed by CT angiogram at [facility]; I do not have records from [...] to Macrodantin. SOCIAL HISTORY: She lives in [place] with her . She is accompanied today by her [id number] who is also a patient of our practice. 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 She is not working now. She does [...] dryness and this is managed by an trucking supervisor. She has the hematuria and pain with [...] repeat her anticardiolipin antibody since this can mold changer time. If the anticardiolipin antibody is persistently [...] about her diagnosis of pulmonary embolus at [facility] and any additional testing done at that [...] available. Tana Rivera M.D.* TRUNG/rxaldarlene Doc. ID [id number] Rev. #0 cc: Avtar Moeller M.D.* Dr. Etienne De La Paz Page 4 of 4 Page 1 of 4 Authenticated and Edited by TANA RIVERA M.D. On 06/09/12 3:24:05 PM * Interface, See Report - 06/08/2012 4:16 PM EDT Zurdo cShuler M.D. ' Tana Rivera M.D. ' Rosalio Marie M.D. ' STEPHANIE Quezada M.D. ' Heath Amado M.D. ' Kailey uRff APRN [address] [place] [address], [place] [address] [place] [address] [place] OFFICE NOTE SKYLER MONTOYA : 1940 DATE [...] medicines and I will try to get neonatal social worker to give her some help with this. Also, I will speak to Dr. De L aPaz about this and I have a call into his office. Tana Rivera M.D.* TRUNG/ruperto Doc. ID [id number] Rev. #0 cc: Etienne De La Paz Jr., M.D.* Avtar oMeller M.D.* Page 2 of 2 Page 1 of 2 Authenticated by TANA RIVERA M.D. On 07/07/2012 04:36:41 PM * Interface, See Report - 06/08/2012 4:16 PM EDT Zurdo Schuler M.D. ' Tana Rivera M.D. ' Rosalio Marie M.D. ' STEPHANIE Quezada M.D. ' Heath Amado M.D. ' Kailey Ruff APRN [address], [address] [place] [id number] [place] OFFICE NOTE SKYLER MONTOYA : 1940 DATE [...] antibodies. Tana Rivera M.D.* RME/rxalw Doc. ID [id number] Rev. #0 cc: Avtar Moeller M.D.* Page 2 of 2 Page 1 of 2 Authenticated by TANA RIVERA M.D. On 08/15/2012 09:44:06 AM * Interface, See Report - 06/08/2012 4:16 PM EDT Zurdo Schuler M.D. ' Tana Rivera M.D. ' Rosalio Marie M.D. ' STEPHANIE Quezada M.D. ' David Calvillo M.D. ' Heath Amado M.D. ' Kailey Ruff APRN [address] [place] [address] [place] [address] [place] OFFICE NOTE SKYLER MONTOYA : 1940 DATE [...] develop. Tana Rivera M.D.* RMEmiliano/rxalw Doc. ID [id number] Rev. #0 cc: Avtar Moeller M.D.* Jorje Watters M.D.* SKYLER MONTOYA : 1940 DATE OF VISIT: 04/26/2013 Page 2 of 2 Page 1 of 2 DOCUMENT CODE :[facility]: PHYSICIAN CODE :61411: Authenticated by TANA RIVERA M.D. On 05/04/2013 10:54:04 AM * Interface, See Report - 06/08/2012 4:16 PM EDT Zurdo Schuler M.D. ' Tana Rivera M.D. ' Rosalio Marie M.D. ' STEPHANIE Quezada M.D. ' David Calvillo M.D. ' Heath Amado M.D. ' Kailey Ruff APRN [facility], [place] [address] [place] [address] [facility] OFFICE NOTE SKYLER MONTOYA : 1940 DATE [...] develop. Tana Rivera M.D.* RMEmiliano/rxalw Doc. ID [id number] Rev. #0 cc: Avtar Moeller M.D.* Etienne De La Paz Jr., M.D.* Jorje Watters M.D.* SKYLER MNOTOYA : 1940 DATE OF VISIT: 07/12/2013 Page 2 of 2 Page 1 of 2 DOCUMENT CODE :[facility]: PHYSICIAN CODE :32263: Authenticated by TANA RIVERA M.D. On 07/16/2013 01:57:36 PM documented in this encounter Plan of Treatment Not on file documented as of this encounter Visit Diagnoses Not on filedocumented in this encounter Care Teams Gang Pusher Relationship Specialty Start Date End Date Jay Howell MD [address] [place] [address] PCP - General Emergency Medicine 04/28/23 documented as of this encounter
--- OUTSIDE RECORDS SUMMARY | 2025-07-28 09:17 | XMS_ITS | Encounter Summary ---
Author Organization [employer] ([place], [place], [place], [place]) Address [address] [place] [address] Care Team Providers Care Cyber Crime Investigator Name Role Phone Jay Howell MD Primary Care Provider [phone] Encounter Details Date Type Department Care Team (Late st Contact Info) Description 08/23/2020 Transcribed Document [facility] [place] [place] Family Medicine [address] [place] [address] ProviderJessie MD [address] [place] [address] Social History Tobacco Use Types Packs/Day Years Used Date Smoking Tobacco: Never Assessed Comments Unknown Sex and Gender Information Value Date Recorded Sex Assigned at Not on file Legal Sex Female 7:30 PM CDT Gender Identity Not on file Sexual Orientation Not on file documented as of this encounter Miscellaneous Notes * [employer]ner Conversion Note - Jessie Yuen MD - 08/23/2020 1:35 AM RECLAMATION ENGINEER ED Discharge Entered On: 08/23/2020 2:08 EST [...] 08/23/2020 2:07 EST Electronically signed by Sivan, [facility] Conversion Food Adviser Cerner at 02/04/2023 2:21 PM CDT documented in this encounter Plan of Treatment Not on file documented as of this encounter Visit Diagnoses Not on filedocumented in this encounter Care Teams Cyber Crime Investigator Relationship Specialty Start Date End Date Jya Howell MD [address] [place] [phone] PCP - General Emergency Medicine 11/12/23 documented as of this encounter
--- OUTSIDE RECORDS SUMMARY | 2025-07-28 09:17 | XMS_ITS | Encounter Summary ---
Author Organization [employer] ([place], [place], [place], [place]) Address [address] [place] [address] Care Team Providers Care Field Mechanic/Site Lead Name Role Phone Jay Howell MD Primary Care Provider [phone] Encounter Details Date Type Department Care Team (Late st Contact Info) Description 03/03/2021 Transcribed Document [facility] [place] Family Medicine [address] [place] [address] ProviderJessie MD [address] [place] [phone] Social History Tobacco Use Types Packs/Day Years [...] Communication Barrier : None Primary Language : Czech Any Spiritual/Cultural Needs or Requests : No [...] - 03/03/2021 16:24 EDT Electronically signed by [facility] Conversion Hotshot Superintendent Cerner at 02/04/2023 2:00 PM CDT documented in this encounter Plan of Treatment Not on file documented as of this encounter Visit Diagnoses Not on filedocumented in this encounter Care Teams Field Mechanic/Site Lead Relationship Specialty Start Date End Date Jay Howell MD [address] [place] [phone] PCP - General Emergency Medicine 11/12/23 documented as of this encounter
--- OUTSIDE RECORDS SUMMARY | 2025-07-28 09:17 | XMS_ITS | Encounter Summary ---
Author Organization [employer] ([place], [place], [place], [place]) Address [address] [place] [address] Care Team Providers Care Solid Tire Tuber Machine Operator Name Role Phone Jay Howell MD Primary Care Provider [phone] Encounter Details Date Type Department Care Team (Late st Contact Info) Description 12/21/2018 Transcribed Document [facility] [place] [address] ProviderJessie MD [address] [place] [id number] Social History Tobacco Use Types Packs/Day Years Used Date Smoking Tobacco: Never Assessed Comments Unknown Sex and Gender Information Value Date Recorded Sex Assigned at Not on file Legal Sex Female 7:30 PM CDT Gender Identity Not on file Sexual Orientation Not on file documented as of this encounter Miscellaneous Notes * Cerner Conversion Note - Jessie ProviderMD - 12/21/2018 12:17 PM 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 [address] , [place], [place] [id number] Patient Copy Patient Information: Name: SKYLER MONTOYA Current Date: 12/21/2018 12:17:17 : 1940 Patient Address: [address] [place] [phone] Patient Attending Physician: FREDY YAÑEZ MD-CAR Primary Care Provider: TARA CHEN (REF), -MED Primary Care Provider Discharge Diagnosis: CAD (coronary artery disease); DM (diabetes mellitus); Exertional angina; HLD (hyperlipidemia); HTN (hypertension); Hx of CABG; DANTE (obstructive sleep apnea); Paroxysmal A-fib Weight on Admission: 158 lb, 0 oz Comment: Follow-up Instructions: With: Address: When: [facility] [address], [place] [address] Business (1) In 1 month 01/21/2019 With: Address: When: [facility] [address], [address] [place], [place] [id number] Business (1) Within 2 to 5 weeks [...] What foods can I eat? GrainsBreads, including Montenegrin, white, jie, wheat, raisin, rye, oatmeal, and Pashto. Tortillas that are neither fried nor made with lard or trans fat. Low-fat rolls, including hotdog and hamburger buns and Armenian muffins. Biscuits. Muffins. Waffles. Pancakes. Light popcorn. [...] cottage cheese. Whole-milk cheeses, including blue (fredo), [place], Brie, Nate, Jordanian, Havarti, Belarusian, cheddar, Camembert, and [place]. Whole or 2% milk that is liquid, [...] that has suet, meat fat, or shortening. [place] butter, hydrogenated oils, palm oil, coconut oil, [...] can cause a heart attack (myocardial infarction, [place]). CAD is a leading cause of for [...] 12/25/2012 Document Revised: 03/10/2017 Document Reviewed: 02/04/2015 [employer] Interactive Patient Education ? 2017 [employer] Groin Site Care Refer to this [...] Document Reviewed: 11/05/2011 ExitCare? Patient Information ?2013 [employer]. Angiogram An angiogram, also called angiography, is [...] including vitamins, herbs, eye drops, creams, and xhho-llg-nygzzuw medicines. ??? Any problems you or family [...] 07/13/2006 Document Revised: 03/16/2017 Document Reviewed: 03/06/2014 [employer] Interactive Patient Education ? 2017 [employer]. Medication Leaflets: valsartan (elin BAUTISTA foster) Rivka [...] valsartan; ?? if you are on a xlj-fgoh-bgym; ?? if you are dehydrated; or ?? [...] may report side effects to FDA at 0-799-LTH-9439. What other drugs will affect valsartan? Tell [...] may interact with valsartan, including prescription and jjey-bdr-rsdewvp medicines, vitamins, and herbal products. Not all [...] to ensure that the information provided by [employer]square. ('Multum') is accurate, up-to-date, and complete, but no guarantee is made to that effect. Drug information contained herein may be time sensitive. [employer] information has been compiled for use by healthcare practitioners and consumers in the [place] and therefore [employer] does not warrant that uses outside of the [place] are appropriate, unless specifically indicated otherwise. [employer] drug information does not endorse drugs, diagnose patients or recommend therapy. [employer] drug information is an informational resource designed [...] effective or appropriate for any given patient. [employer] does not assume any responsibility for any aspect of healthcare administered with the aid of information [employer] provides. The information contained herein is not intended to cover all possible uses, directions, precautions, warnings, drug interactions, allergic reactions, or adverse effects. If you have questions about the drugs you are taking, check with your doctor, nurse or pharmacist. Copyright 1605-0447 [employer]. Version: 16.05. Revision Date: 09/08/2016. hydralazine (bob [...] may report side effects to FDA at 9-800-ZUZ-6522. What other drugs will affect hydralazine? Tell your doctor about all your current medicines and any you start or stop using, especially: ? diazoxide (an injectable blood pressure medication); or ?? an MAO inhibitor--isocarboxazid, linezolid, methylene blue injection, phenelzine, rasagiline, selegiline, tranylcypromine, and others. This list is not complete. Other drugs may interact with hydralazine, including prescription and uhbi-eks-bozrnxi medicines, vitamins, and herbal products. Not all [...] to ensure that the information provided by [employer]. ('Multum') is accurate, up-to-date, and complete, but no guarantee is made to that effect. Drug information contained herein may be time sensitive. [employer] information has been compiled for use by healthcare practitioners and consumers in the [place] and therefore [employer] does not warrant that uses outside of the [place] are appropriate, unless specifically indicated otherwise. [employer]'s drug information does not endorse drugs, diagnose patients or recommend therapy. [employer] drug information is an informational resource designed [...] effective or appropriate for any given patient. [employer] does not assume any responsibility for any aspect of healthcare administered with the aid of information [employer] provides. The information contained herein is not intended to cover all possible uses, directions, precautions, warnings, drug interactions, allergic reactions, or adverse effects. If you have questions about the drugs you are taking, check with your doctor, nurse or pharmacist. Copyright 2928-8297 [employer]. Version: 5.01. Revision Date: 10/26/2017. amlodipine (am CAS reyes) [facility] What is the most important information I [...] may report side effects to FDA at 0-433-ICF-5914. What other drugs will affect amlodipine? Tell your doctor about all your current medicines and any you start or stop using, especially: ? nitroglycerin; ?? simvastatin (Zocor, Simcor, Vytorin); or ?? any other heart or blood pressure medications. This list is not complete. Other drugs may interact with amlodipine, including prescription and hsxv-hdp-mllyvot medicines, vitamins, and herbal products. Not all [...] to ensure that the information provided by [employer]square. ('mDialogtum') is accurate, up-to-date, and complete, but no guarantee is made to that effect. Drug information contained herein may be time sensitive. [employer] information has been compiled for use by healthcare practitioners and consumers in the [place] and therefore [employer] does not warrant that uses outside of the [place] are appropriate, unless specifically indicated otherwise. [employer] drug information does not endorse drugs, diagnose patients or recommend therapy. [employer] drug information is an informational resource designed [...] effective or appropriate for any given patient. [employer] does not assume any responsibility for any aspect of healthcare administered with the aid of information [employer] provides. The information contained herein is not intended to cover all possible uses, directions, precautions, warnings, drug interactions, allergic reactions, or adverse effects. If you have questions about the drugs you are taking, check with your doctor, nurse or pharmacist. Copyright 8590-2221 [employer]. Version: 14.01. Revision Date: 01/24/2017. clopidogrel (kloe [...] may report side effects to FDA at 9-458-MRB-3833. What other drugs will affect clopidogrel? Certain other medicines may increase your risk of bleeding, including aspirin. Avoid taking aspirin unless your doctor tells you to. Tell your doctor about all your other medicines, especially: ? any other medicines to treat or prevent blood clots; ?? a stomach acid nub card tender such as omeprazole, Nexium, or Prilosec; ?? an antidepressant; ?? an opioid medication; ?? a blood thinner--warfarin, Coumadin, Jantoven; or ?? NSAIDs (nonsteroidal anti-inflammatory drugs)--ibuprofen (Advil, Motrin), naproxen (Aleve), celecoxib, diclofenac, indomethacin, meloxicam, and others. This list is not complete. Other drugs may affect clopidogrel, including prescription and vfsv-cyh-dvqkkiy medicines, vitamins, and herbal products. Not all [...] to ensure that the information provided by [employer]. ('Multum') is accurate, up-to-date, and complete, but no guarantee is made to that effect. Drug information contained herein may be time sensitive. [employer] information has been compiled for use by healthcare practitioners and consumers in the [place] and therefore [employer] does not warrant that uses outside of the [place] are appropriate, unless specifically indicated otherwise. [employer] drug information does not endorse drugs, diagnose patients or recommend therapy. [employer] drug information is an informational resource designed [...] effective or appropriate for any given patient. [employer] does not assume any responsibility for any aspect of healthcare administered with the aid of information [employer] provides. The information contained herein is not intended to cover all possible uses, directions, precautions, warnings, drug interactions, allergic reactions, or adverse effects. If you have questions about the drugs you are taking, check with your doctor, nurse or pharmacist. Copyright 1428-8099 [employer]square. Version: 15.01. Revision Date: 08/07/2018. ranolazine (ra [...] may report side effects to FDA at 4-640-BTS-8370. What other drugs will affect ranolazine? Many [...] interact with ranolazine. This includes prescription and ilxg-qny-xhxrcys medicines, vitamins, and herbal products. Give a [...] to ensure that the information provided by [employer]square. ('Multum') is accurate, up-to-date, and complete, but no guarantee is made to that effect. Drug information contained herein may be time sensitive. [employer] information has been compiled for use by healthcare practitioners and consumers in the [place] and therefore [employer] does not warrant that uses outside of the [place] are appropriate, unless specifically indicated otherwise. [employer]'s drug information does not endorse drugs, diagnose patients or recommend therapy. [employer] drug information is an informational resource designed [...] effective or appropriate for any given patient. [employer] does not assume any responsibility for any aspect of healthcare administered with the aid of information [employer] provides. The information contained herein is not intended to cover all possible uses, directions, precautions, warnings, drug interactions, allergic reactions, or adverse effects. If you have questions about the drugs you are taking, check with your doctor, nurse or pharmacist. Copyright 6410-6116 [employer]. Version: 11.. Revision Date: 12/04/2015. CIGARETTE SMOKING: The facts are clear, cigarette smoking will shorten your life. Smoking can cause many illnesses along the way. As a healthcare provider, we recommend that you stop smoking. Assistance with quitting is available by contacting 3-803-YOME-NOW. This is a free resource providing counseling, [...] Be sure to sign up for the [employer] patient portal, which gives you 09/05 access to your medical information ??? including these discharge instructions ??? using your computer, smartphone, or tablet. Just go to [employer] to get started. Questions? Call . [facility] would like to thank you for allowing us to assist you with your healthcare needs. MIHCELE Skaggs JUDY D, (or senior patient account representative) have received the above patient education materials/instructions and have verbalized understanding: Patient Signature _ Date/Time Patient Staker Surveying Signature (if needed) Date/Time Clinician/Hospital Staker Surveying Signature (if needed) Date/Time Electronically signed by Sivan, [facility] Conversion Terrazzo Polisher Cerner at 02/04/2023 2:01 PM CDT documented in this encounter Plan of Treatment Not on file documented as of this encounter Visit Diagnoses Not on filedocumented in this encounter Care Teams Solid Tire Tuber Machine Operator Relationship Specialty Start Date End Date Jay Howell MD [address] [place] [phone] PCP - General Emergency Medicine 11/12/23 documented as of this encounter
--- OUTSIDE RECORDS SUMMARY | 2025-07-28 09:17 | XMS_ITS | Encounter Summary ---
Author Organization [employer] ([place], [place], [place], [place]) Address [address] [place] [address] Care Team Providers Care Information Systems Supervisor Name Role Phone Jay Howell MD Primary Care Provider [phone] Encounter Details Date Type Department Care Team (Late st Contact Info) Description 03/03/2021 Transcribed Document [facility] [place] Family Medicine [address] [place] [address] ProviderJessie MD [address] [place], [place] [address] Social History Tobacco Use Types Packs/Day Years [...] : Low risk (0) [place] Interventions : [place] precautions for safety used Marek Sanford Rn - 03/03/2021 16:24 EDT documented in this encounter Plan of Treatment Not on file documented as of this encounter Visit Diagnoses Not on filedocumented in this encounter Care Teams Information Systems Supervisor Relationship Specialty Start Date End Date Jay Howell MD [address] [place] [phone] PCP - General Emergency Medicine 11/12/23 documented as of this encounter
--- OUTSIDE RECORDS SUMMARY | 2025-07-28 09:17 | XMS_ITS | Encounter Summary ---
Author Organization [employer] ([place], [place], [place], [place]) Address [address] [place] [address] Care Team Providers Care Licensed Therapist Name Role Phone Jay Howell MD Primary Care Provider [phone] Encounter Details Date Type Department Care Team (Late st Contact Info) Description 03/03/2021 Transcribed Document [facility] [place] Medicine [address] [place] [phone] ProviderJessie MD [address] [place] [phone] Social History Tobacco Use Types Packs/Day Years [...] 03/03/2021 17:11 EDT Electronically signed by Sivan [facility] Conversion Cut Order Hand Cerner at 02/04/2023 2:10 PM CDT documented in this encounter Plan of Treatment Not on file documented as of this encounter Visit Diagnoses Not on filedocumented in this encounter Care Teams Licensed Therapist Relationship Specialty Start Date End Date Jay Howell MD [address] [place] [phone] PCP - General Emergency Medicine 11/12/23 documented as of this encounter
--- OUTSIDE RECORDS SUMMARY | 2025-07-28 09:17 | XMS_ITS | Encounter Summary ---
Author Organization [facility] Address [address] [place] [address] Care Team Providers Care Principal Mechanical Engineer Name Role Phone Jay Howell MD Primary Care Provider Encounter Details Date Type Department Care Team (Late st Contact Info) Description 01/20/[address] [facility] [address] [place] [address] Joselito Garza MD [address] [place] [address] Social History Tobacco Use Types [...] place to sleep or slept in a care home (including now)? No 01/23/2024 CAGE ASSESSMENT Answer [...] drink first t kathleen in the morning (EYE-ASSISTANT LIBRARIAN) to steady your nerves or to get rid of a hangover? 0 01/21/2024 CAGE Questionnaire Score 0 024 Utilities Answer Date Recorded In the past 12 months has th e [employer], gas, oil, or water company threatened to [...] documented as of this encounter Care Teams Principal Mechanical Engineer Relationship Specialty Start Date End Date Jay Howell MD [address] [place] [address] PCP - General 03/08/21 documented as of this encounter
--- OUTSIDE RECORDS SUMMARY | 2025-07-28 09:17 | XMS_ITS | Encounter Summary ---
Author Organization [employer] ([place], [place], [place], [place]) Address [address] [place] [address] Care Team Providers Care Faculty Research Physician Name Role Phone Jay Howell MD Primary Care Provider [phone] Encounter Details Date Type Department Care Team (Late st Contact Info) Description 08/22/2020 Transcribed Document [facility] [place] [address] [place] [address] ProviderJessie MD [address] [place] [address] Social History Tobacco Use Types Packs/Day Years Used Date Smoking Tobacco: Never Assessed Comments Unknown Sex and Gender Information Value Date Recorded Sex Assigned at Not on file Legal Sex Female 7:30 PM CDT Gender Identity Not on file Sexual Orientation Not on file documented as of this encounter Miscellaneous Notes * Cerner Conversion Note - Jessie Yuen MD - 08/22/2020 8:49 PM RAT EXTERMINATOR ED Triage Entered On: 08/22/2020 20:57 EST [...] : 3 - Urgent Tracking Group : [facility] ED LUCINDA FOFANA RN - 08/22/2020 [...] morphine ; Type: Allergy ; Updated By: AUTSIN Nuñez; Reviewed Date: 08/22/2020 20:53 EST nitrofurantoin Estimated Onset Date: Unspecified ; Reactions: blisters, blisters ; Created By: Joaquin HISTDAXA; Reaction Status: Active ; Category: Drug ; Substance: nitrofurantoin ; Type: Allergy ; Updated By: Contributor_system, LAURYN_FELIX; Reviewed Date: 08/22/2020 20:53 EST Diagnosis Control ED (As Of: 08/22/2020 20:57:39 EST) Problems(Active) Apnea, sleep (SNOMED CT :266343301 ) Name of Problem: Apnea, sleep ; Recorder: JUAN LUIS GIL RN; Confirmation: Confirmed ; Classification: Medical ; Code: 911638178 ; Contributor System: PowerChart ; Last Updated: 11/12/2014 10:12 EST ; Life Cycle Date: 11/12/2014 ; Life Cycle Status: Active ; Vocabulary: SNOMED CT Arthritis (SNOMED CT :6854918 ) Name of Problem: Arthritis ; Recorder: KENYON CHAMBERS RN; Confirmation: Confirmed ; Classification: Medical ; Code: 8898214 ; Contributor System: PowerChart ; Last Updated: 04/10/2016 8:04 EDT ; Life Cycle Date: 08/13/2013 ; Life Cycle Status: Active ; Vocabulary: SNOMED CT Atrial fibrillation with RVR (SNOMED CT :1129270560 ) Name of Problem: Atrial fibrillation with RVR ; Recorder: SANG RICO APRN; Confirmation: Confirmed ; Classification: Medical ; Code: 3029692648 ; Contributor System: PowerChart ; Last Updated: 04/10/2016 8:05 EDT ; Life Cycle Date: 04/10/2016 ; Life Cycle Status: Active ; Responsible Provider: SANG RICO APRN; Vocabulary: SNOMED CT Blood clot (SNOMED CT :629384203 ) Name of Problem: Blood clot ; Recorder: KENYON CHAMBERS RN; Confirmation: Confirmed ; Classification: Patient Stated ; Code: 099041464 ; Contributor System: PowerChart ; Last Updated: [...] Vocabulary: Patient Care Chest pain (SNOMED CT :83653951 ) Name of Problem: Chest pain ; Recorder: SANG RICO APRN; Confirmation: Complaint of ; Classification: Medical ; Code: 02382887 ; Contributor System: PowerChart ; Last Updated: 04/10/2016 8:05 EDT ; Life Cycle Status: Active ; Responsible Provider: SANG RICO APRN; Vocabulary: SNOMED CT Chronic anticoagulation (SNOMED CT :964616372 ) Name of Problem: Chronic anticoagulation ; Recorder: SANG RICO APRN; Confirmation: Confirmed ; Classification: Medical ; Code: 979630966 ; Contributor System: PowerChart ; Last Updated: 04/10/2016 8:05 EDT ; Life Cycle Date: 04/10/2016 ; Life Cycle Status: Active ; Responsible Provider: SANG RICO APRN; Vocabulary: SNOMED CT Clotting disorder (SNOMED CT :296074900 ) Name of Problem: Clotting disorder ; Recorder: KENYON CHAMBERS RN; Confirmation: Confirmed ; Classification: Patient Stated ; Code: 237729701 ; Contributor System: PowerChart ; Last Updated: 03/28/2014 19:29 EDT ; Life Cycle Date: 08/13/2013 ; Life Cycle Status: Active ; Vocabulary: SNOMED CT COPD (SNOMED CT :23022551 ) Name of Problem: COPD ; Recorder: KENYON CHAMBERS RN; Confirmation: Confirmed ; Classification: Medical ; Code: 77074266 ; Contributor System: Private OutletChart ; Last Updated: 04/10/2016 8:03 EDT ; Life Cycle Date: 08/13/2013 ; Life Cycle Status: Active ; Vocabulary: SNOMED CT Coronary artery disease (SNOMED CT :3105320389 ) Name of Problem: Coronary artery disease ; Recorder: KENYON CHAMBERS RN; Confirmation: Confirmed ; Classification: Medical ; Code: 3580784032 ; Contributor System: PowerChart ; Last Updated: 04/10/2016 8:03 EDT ; Life Cycle Date: 08/13/2013 ; Life Cycle Status: Active ; Vocabulary: SNOMED CT Diabetes mellitus (SNOMED CT :582699454 ) Name of Problem: Diabetes mellitus ; Recorder: KENYON CHAMBERS RN; Confirmation: Confirmed ; Classification: Medical ; Code: 910052918 ; Contributor System: PowerChart ; Last Updated: 04/10/2016 8:04 EDT ; Life Cycle Date: 08/13/2013 ; Life Cycle Status: Active ; Vocabulary: SNOMED CT Emphysema (SNOMED CT :876612485 ) Name of Problem: Emphysema ; Recorder: JUAN LUIS GIL RN; Confirmation: Confirmed ; Classification: Medical ; Code: 123077029 ; Contributor System: PowerChart ; Last Updated: 11/12/2014 10:11 EST ; Life Cycle Date: 11/12/2014 ; Life Cycle Status: Active ; Vocabulary: SNOMED CT GERD - Gastro-esophageal reflux disease (SNOMED CT :8831009595 ) Name of Problem: GERD - Gastro-esophageal reflux disease ; Recorder: KENYON CHAMBERS RN; Confirmation: Confirmed ; Classification: Medical ; Code: 9293104943 ; Contributor System: Private OutletChart ; Last Updated: 04/10/2016 8:03 EDT ; [...] Patient Care High blood pressure (SNOMED CT :99215616 ) Name of Problem: High blood pressure ; Recorder: KENYON CHAMBERS RN; Confirmation: Confirmed ; Classification: Medical ; Code: 54608884 ; Contributor System: PowerChart ; Last Updated: 04/10/2016 8:03 EDT ; Life Cycle Date: 08/13/2013 ; Life Cycle Status: Active ; Vocabulary: SNOMED CT History of obstructive sleep apnea (IMO :08956221 ) Name of Problem: History of obstructive sleep apnea ; Recorder: SYSTEM, SYSTEM; Confirmation: Confirmed ; Classification: Medical ; Code: 31662246 ; Last Updated: 12/20/2018 12:01 EST ; Life Cycle Date: 12/20/2018 ; Life Cycle Status: Active ; Vocabulary: IMO Hx of pulmonary embolus (SNOMED CT :146178723 ) Name of Problem: Hx of pulmonary embolus ; Recorder: SANG RICO APRN; Confirmation: Confirmed ; Classification: Medical ; Code: 167277776 ; Contributor System: Private OutletChart ; Last Updated: 04/10/2016 8:05 EDT ; Life Cycle Date: 04/10/2016 ; Life Cycle Status: Active ; Responsible Provider: SANG RICO APRN; Vocabulary: SNOMED CT Hyperlipidemia (SNOMED CT :89330483 ) Name of Problem: Hyperlipidemia ; Recorder: KENYON CHAMBERS RN; Confirmation: Confirmed ; Classification: Medical ; Code: 77708725 ; Contributor System: Private OutletChart ; Last Updated: 04/10/2016 8:03 EDT ; Life Cycle Date: 08/13/2013 ; Life Cycle Status: Active ; Vocabulary: SNOMED CT Multiple renal cysts (SNOMED CT :071265844 ) Name of Problem: Multiple renal cysts ; Recorder: KENYON CHAMBERS RN; Confirmation: Confirmed ; Classification: Medical ; Code: 309344423 ; Contributor System: Private OutletChart ; Last Updated: 04/10/2016 8:04 EDT ; Life Cycle Date: 08/13/2013 ; Life Cycle Status: Active ; Vocabulary: SNOMED CT Stented coronary artery (SNOMED CT :4474106874 ) Name of Problem: Stented coronary artery ; Recorder: KENYON CHAMBERS RN; Confirmation: Confirmed ; Classification: Medical ; Code: 1543974218 ; Contributor System: Private OutletChart ; Last Updated: 04/10/2016 8:03 EDT ; Life Cycle Date: 08/13/2013 ; Life Cycle Status: Active ; Vocabulary: SNOMED CT UTI - Urinary tract infection (SNOMED CT :9268476245 ) Name of Problem: UTI - Urinary tract infection ; Recorder: KENYON CHAMBERS RN; Confirmation: Confirmed ; Classification: Medical ; Code: 4786476766 ; Contributor System: Private OutletChart ; Last Updated: 04/10/2016 8:04 EDT ; Life Cycle Date: 08/13/2013 ; Life Cycle Status: Active ; Vocabulary: SNOMED CT Diagnoses(Active) Leg pain-swelling Date: 08/22/2020 ; Diagnosis Type: Reason For Visit ; Confirmation: Complaint of ; Clinical Dx: Leg pain-swelling ; Classification: Medical ; Clinical Service: Emergency medicine ; Code: PNED ; Probability: 0 ; Diagnosis Code: [id number] ED Height and Weight Height Source : Stated Height Entry Format : [place] Height, Feet : 5 ft(Converted to: 152 cm, 60 Inch) Height, Inches : 3 Inch(Converted to: 0 ft 3 Inch, 7.62 cm) Clinical Height : 160.02 cm Weight Source, ED : Critical estimated dosing weight Weight Entry Format : [place] Weight, Pounds : 154 lb Clinical Dosing Weight : 70 kg Body Surface Area (BSA) : 1.73 m2 Body Mass Index : 27.3 kg/m2 (HI) Bieber Body Weight (IBW) : 52.02 kg LUCINDA FOFANA RN - 08/22/2020 20:52 EST Electronically signed by [facility], [facility] Conversion Program Services Planner Cerner at 02/04/2023 2:09 PM CDT documented in this encounter Plan of Treatment Not on file documented as of this encounter Visit Diagnoses Not on filedocumented in this encounter Care Teams Faculty Research Physician Relationship Specialty Start Date End Date Jay Howell MD [address] [place] [phone] PCP - General Emergency Medicine 11/12/23 documented as of this encounter
--- OUTSIDE RECORDS SUMMARY | 2025-07-28 09:17 | XMS_ITS | Encounter Summary ---
Author Organization [email or web address] ([place], [place], [place], [place]) Address [address] [place] [address] Care Team Providers Care Joinery Setter Out Name Role Phone Jay Howell MD Primary Care Provider [phone] Encounter Details Date Type Department Care Team (Late st Contact Info) Description 02/13/2021 Transcribed Document [facility] [place] Family Medicine [address] [place] [address] ProviderJessie MD [address] [place], [place] [id number] Social History Tobacco Use Types Packs/Day Years [...] Yuen MD - 02/13/2021 12:19 PM CDT [facility] [place] [address] SKYLER MONTOYA :1940 Visit Time:02/13/2021 What to do next Your Diagnosis Personal history of colonic polyps Unspecified abdominal pain Follow-Up Appointments Follow Up with FABY GRIMM MD When Only if needed Where: [address] [facility] [address] [place] [address]- Medications What How Much When Instructions Next [...] counseling. ??? Working with a diet and plant technical specialist (dietitian) to help create a food [...] for some people. General instructions ??? Take yrzc-vtg-qltnfnv and prescription medicines and supplements only as [...] provider. Document Revised: 09/26/2018 Document Reviewed: 09/26/2018 [employer] Patient Education ?? 2020 [employer]. Segura's Esophagus Segura's esophagus occurs when [...] Tomatoes and foods made with tomatoes. ? [place] or spicy foods. ? Chocolate and peppermint. ??? Do not drink alcohol. General instructions ??? Take gjkb-muy-yscunvj and prescription medicines only as told by [...] provider. Document Revised: 01/29/2019 Document Reviewed: 01/29/2019 [employer] Patient Education ?? 2020 [employer]. ESOPHAGOGASTRODUODENOSCOPY Care After Read the instructions [...] eating solid foods. General instructions ??? Take kwbg-ubi-lfdgjyc and prescription medicines only as told by [...] provider. Document Revised: 01/01/2019 Document Reviewed: 01/23/2017 [employer] Patient Education ?? 2020 [employer]. Gastritis, Adult Gastritis is inflammation of the [...] medicines. These include steroids, antibiotics, and some akuo-pvn-gdmjkuj medicines, such as aspirin or ibuprofen. ??? [...] these instructions at home: Medicines ??? Take cghg-dhg-vfedoxa and prescription medicines only as told by [...] Reviewed: 02/20/2019 Elsevier Patient Education ?? 2020 [employer]. Colonoscopy, Adult A colonoscopy is a [...] including vitamins, herbs, eye drops, creams, and dkiv-hch-tjplutt medicines. ??? Any problems you or family [...] tells you to take them. ??? Taking uudh-rpa-ugvfvbk medicines, vitamins, herbs, and supplements. General instructions [...] provider. Document Revised: 04/25/2020 Document Reviewed: 04/25/2020 [employer] Patient Education ?? 2020 [employer]. Colon Polyps Polyps are tissue growths [...] provider. Document Revised: 01/18/2019 Document Reviewed: 01/18/2019 [employer] Patient Education ?? 2020 [employer]. Emergency Awareness and Preventative Care STROKE is [...] Assistance with quitting is available by contacting 0-859-VCYF-NOW. This is a free resource providing counseling, [...] was given the opportunity to ask questions. Patient/Cash Processor Name: Patient/Cash Processor Signature: Relationship to Patient: Clinician/Hospital Cash Processor Signature: Date: documented in this encounter Plan of Treatment Not on file documented as of this encounter Visit Diagnoses Not on filedocumented in this encounter Care Teams Joinery Setter Out Relationship Specialty Start Date End Date Jay Howell MD [address] [place] [phone] PCP - General Emergency Medicine 11/12/23 documented as of this encounter
--- OUTSIDE RECORDS SUMMARY | 2025-07-28 09:17 | XMS_ITS | Encounter Summary ---
Author Organization [employer] ([place], [place], [place], [place]) Address [address] [place] [address] Care Team Providers Care Marker Assembler Name Role Phone Jay Howell MD Primary Care Provider [phone] Encounter Details Date Type Department Care Team (Late st Contact Info) Description 02/13/2021 Transcribed Document [facility] [place] Family Medicine [address] [place] [address] ProviderJessie MD [address] [place], [place] [id number] Social History Tobacco Use Types Packs/Day Years [...] counseling. ??? Working with a diet and safety specialist (dietitian) to help create a food [...] for some people. General instructions ??? Take hjlz-vra-ydkagmy and prescription medicines and supplements only as [...] provider. Document Revised: 09/26/2018 Document Reviewed: 09/26/2018 HCDC Patient Education ? 2020 [employer]. Segura's Esophagus Segura's esophagus occurs when the [...] Tomatoes and foods made with tomatoes. ? [place] or spicy foods. ? Chocolate and peppermint. ??? Do not drink alcohol. General instructions ??? Take okvu-bgf-qnybmch and prescription medicines only as told by [...] provider. Document Revised: 01/29/2019 Document Reviewed: 01/29/2019 HCDC Patient Education ? 2020 [employer]. ESOPHAGOGASTRODUODENOSCOPY Care After Read the instructions outlined [...] eating solid foods. General instructions ??? Take mokw-ccs-vpcmpla and prescription medicines only as told by [...] provider. Document Revised: 01/01/2019 Document Reviewed: 01/23/2017 HCDC Patient Education ? 2020 H[employer] Inc. Gastritis, Adult Gastritis is inflammation of [...] medicines. These include steroids, antibiotics, and some ijrp-ibm-nvxarii medicines, such as aspirin or ibuprofen. ??? [...] these instructions at home: Medicines ??? Take nxxw-ulw-ioihice and prescription medicines only as told by [...] Reviewed: 02/20/2019 Elsevier Patient Education ? 2020 H[employer] Inc. Colonoscopy, Adult A colonoscopy is a [...] including vitamins, herbs, eye drops, creams, and xugb-mtw-ihohhzj medicines. ??? Any problems you or family [...] tells you to take them. ??? Taking iqpe-wjy-savcnlg medicines, vitamins, herbs, and supplements. General instructions [...] provider. Document Revised: 04/25/2020 Document Reviewed: 04/25/2020 HCDC Patient Education ? 2020 HCDC Inc. Colon Polyps Polyps are tissue growths [...] provider. Document Revised: 01/18/2019 Document Reviewed: 01/18/2019 HCDC Patient Education ? 2020 [employer]. documented in this encounter Plan of Treatment Not on file documented as of this encounter Visit Diagnoses Not on filedocumented in this encounter Care Teams Marker Assembler Relationship Specialty Start Date End Date Jay Howell MD [address] [place] [phone] PCP - General Emergency Medicine 11/12/23 documented as of this encounter
--- OUTSIDE RECORDS SUMMARY | 2025-07-28 09:17 | XMS_ITS | Encounter Summary ---
Author Organization [employer] ([place], [place], [place], [place]) Address [address] [place] [address] Care Team Providers Care Principal Scientist Name Role Phone Jay Howell MD Primary Care Provider [phone] Encounter Details Date Type Department Care Team (Late st Contact Info) Description 08/22/2020 Transcribed Document [facility] [place] [address] [place] [address] ProviderJessie MD [address] [place] [address] Social History Tobacco Use Types Packs/Day Years Used Date Smoking Tobacco: Never Assessed Comments Unknown Sex and Gender Information Value Date Recorded Sex Assigned at Not on file Legal Sex Female 7:30 PM CDT Gender Identity Not on file Sexual Orientation Not on file documented as of this encounter Miscellaneous Notes * Cerner Conversion Note - Historical ProviderMD - 08/22/2020 8:49 PM CARD LACER [place] Suicide Severity Rating Scale (C-SSRS) Entered On: 08/22/2020 23:10 EST Performed On: 08/22/2020 23:10 EST by Noy Miguel Paramedic [place] Suicide Severity Rating Scale (C-SSRS) CSSRS Past Month Wish to be : No CSSRS Past Month Suicidal Thoughts : No CSSRS Lifetime Suicide Behavior : No Suicide Severity Rating Score : 0 Suicide Severity Rating : No Additional Care Required at this time Thoughts of Harming/Killing Others : No Noy Miguel Paramedic - 08/22/2020 23:10 EST Electronically signed by Sivan, [facility] Conversion Process Controls Technician Cerner at 02/04/2023 2:06 PM CDT documented in this encounter Plan of Treatment Not on file documented as of this encounter Visit Diagnoses Not on filedocumented in this encounter Care Teams Principal Scientist Relationship Specialty Start Date End Date Jay Howell MD [address] [place] [phone] PCP - General Emergency Medicine 11/12/23 documented as of this encounter
--- OUTSIDE RECORDS SUMMARY | 2025-07-28 09:17 | XMS_ITS | Encounter Summary ---
Author Organization [employer] ([place], [place], [place], [place]) Address [address] [place] [address] Care Team Providers Care Strip Mine Supervisor Name Role Phone Jay Howell MD Primary Care Provider [phone] Encounter Details Date Type Department Care Team (Late st Contact Info) Description 06/14/2020 Transcribed Document [facility] [place] [address] ProviderJessie MD [address] [place] [address] Social History Tobacco Use Types Packs/Day Years [...] Diagnoses: None Author: FREDY YAÑEZ MD-CAR BASIC Fiscal Accountant: None Subjective NAD Health Status Allergies: Allergic [...] list: All Problems Arthritis / SNOMED CT 3181468 / Confirmed Atrial fibrillation with RVR / SNOMED CT 4603937427 / Confirmed Blood clot / SNOMED CT 086359138 / Confirmed Cataract / Patient Care / Confirmed Chest pain / SNOMED CT 08006072 / Complaint of Clotting disorder / SNOMED CT 709400414 / Confirmed COPD / SNOMED CT 87172859 / Confirmed Coronary artery disease / SNOMED CT 2807685316 / Confirmed Diabetes mellitus / SNOMED CT 249242530 / Confirmed GERD - Gastro-esophageal reflux disease / SNOMED CT 9491374829 / Confirmed Glaucoma / Patient Care / Confirmed Chronic anticoagulation / SNOMED CT 121431539 / Confirmed Hx of pulmonary embolus / SNOMED CT 305744170 / Confirmed High blood pressure / SNOMED CT 49335655 / Confirmed History of obstructive sleep apnea / IMO 10782817 / Confirmed Hyperlipidemia / SNOMED CT 50747797 / Confirmed Multiple renal cysts / SNOMED CT 852512448 / Confirmed Emphysema / SNOMED CT 316986012 / Confirmed Apnea, sleep / SNOMED CT 270834611 / Confirmed Stented coronary artery / SNOMED CT 1858840586 / Confirmed UTI - Urinary tract infection / SNOMED CT 3705677882 / Confirmed, Active Problems (21) Apnea, sleep [...] of motion, Normal strength. Integumentary: Warm, Dry, [place]. Neurologic: Alert, Oriented. Psychiatric: Cooperative, Appropriate mood & affect. Results Review JUN 14 05:28 136 105 7 / H 114 3.6 24 0.60 \ JUN 14 05:28 \ 12.0 / 5.2 177 / 35.2 \ Cardiac Markers (Current Encounter/Past 24 Hours) No Cardiac Marker Results Found (Past 24 Hours) Radiology Results (Last 48 hours) [id number] -- 06/13/2020 15:07 CR Chest 1 Vw [...] No change from prior. No acute process. [facility] IMPRESSION: Angiographically, the patient has severe three-vessel [...] w/ Dr. Garcia. Electronically signed by Sivan [facility] Conversion Procurement Clerk Cerner at 02/04/2023 2:15 PM CDT documented in this encounter Plan of Treatment Not on file documented as of this encounter Visit Diagnoses Not on filedocumented in this encounter Care Teams Strip Mine Supervisor Relationship Specialty Start Date End Date Jay Howlel MD [address] [place] [phone] PCP - General Emergency Medicine 11/12/23 documented as of this encounter
--- OUTSIDE RECORDS SUMMARY | 2025-07-28 09:17 | XMS_ITS | Encounter Summary ---
Author Organization [employer] ([place], [place], [place], [place]) Address [address] [place] [address] Care Team Providers Care Gluing Machine Operator Electronic Name Role Phone Jay Howell MD Primary Care Provider [phone] Encounter Details Date Type Department Care Team (Late st Contact Info) Description 06/14/2020 Transcribed Document [facility] [place] [address] [place] [address] ProviderJessie MD [address] [place] [address] Social History Tobacco Use Types Packs/Day Years [...] on filedocumented in this encounter Care Teams Gluing Machine Operator Electronic Relationship Specialty Start Date End Date Jay Howell MD [address] [place] [phone] PCP - General Emergency Medicine 11/12/23 documented as of this encounter
--- OUTSIDE RECORDS SUMMARY | 2025-07-28 09:17 | XMS_ITS | Encounter Summary ---
Author Organization [employer] ([place], [place], [place], [place]) Address [address] [place] [address] Care Team Providers Care Rn Intensive Care Unit Name Role Phone Jay Howell MD Primary Care Provider [phone] Encounter Details Date Type Department Care Team (Late st Contact Info) Description 03/03/[address] [facility] [place] [facility] [place] [address] ProviderJessie MD [address] [place] [phone] Social History Tobacco Use Types Packs/Day Years [...] filedocumented in this encounter Care Teams Rn Intensive Care Unit Relationship Specialty Start Date End Date Jay Howell MD [address] [place] [phone] PCP - General Emergency Medicine 11/12/23 documented as of this encounter
--- OUTSIDE RECORDS SUMMARY | 2025-07-28 09:17 | XMS_ITS | Encounter Summary ---
Author Organization [facility] Address [address] [place] [address] Care Team Providers Care Pants Closer Name Role Phone Jay Howell MD Primary Care Provider [phone] Reason for Visit * Reason Onset Date Comments Returned Call 07/02/2025 Encounter Details Date Type Department Care Team (Late st Contact Info) Description 07/02/2025 [facility]phone [facility] [address] [place] [address] Returned Call Social History Tobacco [...] place to sleep or slept in a fci (including now)? No 08/06/2024 CAGE ASSESSMENT Answer [...] drink first t kathleen in the morning (EYE-MANAGER LINUX) to steady your nerves or to get [...] Clinical Concern/Question Reason for Call: Sarah with [facility] in [place] called, saying that pt needs a STAT appt for a void trail. They have done 2 but she failed both of them. I explained we need a referral, but she is saying they cannot send us a referral or records until we send them a request for the referral and records. Their fax for medical records is [phone]. Please give her a call back. Thanks! Best contact number: Other: [phone] Optimal time of day to reach caller: ANYTIME Additional comments/information from caller: None Note: Please do not reply to this message. Follow-up communication and further actions as a result of this message need to be communicated with the patient directly, if the patient is not active onMyChart. If the patient is active on MyChart, they will receive notification of the communication/outcome via [employer]. documented in this encounter Plan of Treatment [...] documented as of this encounter Care Teams Pants Closer Relationship Specialty Start Date End Date Jay Howell MD [address] [place], [place] [address] PCP - General 03/08/21 documented as of this encounter
--- OUTSIDE RECORDS SUMMARY | 2025-07-28 09:17 | XMS_ITS | Encounter Summary ---
Author Organization [employer] ([place], [place], [place], [place]) Address [address] [place] [address] Care Team Providers Care Recreation Therapy Teacher Name Role Phone Jay Howell MD Primary Care Provider [phone] Encounter Details Date Type Department Care Team (Late st Contact Info) Description 06/14/2020 Transcribed Document [facility] [place] Family Medicine [address] [place] [address] ProviderJessie MD [address] [place] [address] Social History Tobacco Use Types [...] Yuen MD - 06/14/2020 2:41 PM CDT [facility] [place] [address] SKYLER MONTOYA :1940 Visit Time:06/13/2020 Your Visit Summary Your Care Team Admitting Physician - MARIA ELENA DAVALOS MD[facility] Attending Physician - MARIA ELENA DAVALOS [facility] Primary Care Physician - TARA CHEN [...] provider. This is important. Medicines ??? Take sycc-ozc-dtajijz and prescription medicines only as told by [...] 10/03/2006 Document Revised: 06/13/2019 Document Reviewed: 06/13/2019 [employer] Patient Education ?? 2020 [employer] Emergency Awareness and Preventative Care STROKE [...] Assistance with quitting is available by contacting 0-481-STVE-NOW. This is a free resource providing counseling, [...] range between ( 0.0 and 7.0 ) [place] #: 0.61 K/uL -- Normal range between ( 0.16 and 1.00 ) Eos #: 0.12 x10(3)/uL -- Normal range between ( 0.00 and 0.80 ) [place] %: 10.6 % -- Normal range between [...] was given the opportunity to ask questions. Patient/Area Counselor Name: Patient/Area Counselor Signature: Relationship to Patient: Clinician/Hospital Area Counselor Signature: Date: documented in this encounter Plan of Treatment Not on file documented as of this encounter Visit Diagnoses Not on filedocumented in this encounter Care Teams Recreation Therapy Teacher Relationship Specialty Start Date End Date Jay Howell MD [address] [place] [phone] PCP - General Emergency Medicine 11/12/23 documented as of this encounter
--- OUTSIDE RECORDS SUMMARY | 2025-07-28 09:17 | XMS_ITS | Encounter Summary ---
Author Organization [employer] ([place], [place], [place], [place]) Address [address] [place] [address] Care Team Providers Care Rig Superintendent Name Role Phone Jay Howell MD Primary Care Provider [phone] Encounter Details Date Type Department Care Team (Late st Contact Info) Description 02/13/2021 Transcribed Document [facility] [place] [address] [place] [address] ProviderJessie MD [address] [place], [place] [address] Social History Tobacco Use Types Packs/Day Years Used Date Smoking Tobacco: Never Assessed Comments Unknown Sex and Gender Information Value Date Recorded Sex Assigned at Not on file Legal Sex Female 7:30 PM CDT Gender Identity Not on file Sexual Orientation Not on file documented as of this encounter Miscellaneous Notes * Cerner Conversion Note - Historical ProviderMD - 02/13/2021 11:30 AM CDT [facility] Saji PreOp Summary Primary Physician: FABY GRIMM MD Finalized Date/Time: 02/13/21 11:03:33 Pt. Name: SKYLER MONTOYAO.B./Sex: 1940 Female Med Rec #: [id number] Physician: FABY GRIMM MD Financial #: [id number] Pt. Type: O Room/Bed: END/ Admit/Disch: 02/13/21 09:44:00 - Institution: [facility] Endo PreOp Case Times Entry 1 In [...] NON-EXEMPT 02/13/21 11:03 Electronically signed by Sivan [facility] Conversion Geriatric Aide Cerner at 02/04/2023 2:00 PM CDT documented in this encounter Plan of Treatment Not on file documented as of this encounter Visit Diagnoses Not on filedocumented in this encounter Care Teams Rig Superintendent Relationship Specialty Start Date End Date Jay Howell MD [address] [place] [phone] PCP - General Emergency Medicine 11/12/23 documented as of this encounter
--- OUTSIDE RECORDS SUMMARY | 2025-07-28 09:17 | XMS_ITS | Encounter Summary ---
Author Organization [employer] ([place], [place], [place], [place]) Address [address] [place] [address] Care Team Providers Care Jewelry Bearing Maker Name Role Phone Jay Howell MD Primary Care Provider [phone] Encounter Details Date Type Department Care Team (Late st Contact Info) Description 02/13/2021 Transcribed Document [facility] [place] Family Medicine [address] [place] [address] ProviderJessie MD [address] [place], [place] [address] Social History Tobacco Use Types [...] Jessie ProviderMD - 02/13/2021 11:43 AM CDT [facility] Endo PACU Summary Primary Physician: FABY GRIMM MD Finalized Date/Time: 02/13/21 12:32:03 Pt. Name: SKYLER MONTOYAO.B./Sex: 1940 Female Med Rec #: [id number] Physician: FABY GRIMM MD Financial #: [id number] Pt. Type: O Room/Bed: END/ Admit/Disch: 02/13/21 09:44:00 - Institution: [facility] Endo PACU Case Times Entry 1 In PACU I 02/13/21 12:07:00 Ready for PACU 02/13/21 12:31:00 Discharge Discharge from PACU 02/13/21 12:31:00 I Last Modified By: Roselia Urbano, Rn 02/13/21 12:32:01 Finalized By: Roselia Urbano, Rn Document Signatures Signed By: Roselia Urbano Rn 02/13/21 12:32 Electronically signed by [facility] Conversion Technology Sales Representative Cerner at 02/04/2023 2:17 PM CDT documented in this encounter Plan of Treatment Not on file documented as of this encounter Visit Diagnoses Not on filedocumented in this encounter Care Teams Jewelry Bearing Maker Relationship Specialty Start Date End Date Jay Howell MD [address] [place] [phone] PCP - General Emergency Medicine 11/12/23 documented as of this encounter
--- OUTSIDE RECORDS SUMMARY | 2025-07-28 09:17 | XMS_ITS | Encounter Summary ---
Author Organization [employer] ([place], [place], [place], [place]) Address [address] [place] [address] Care Team Providers Care Director Furniture Name Role Phone Jay Howell MD Primary Care Provider [phone] Encounter Details Date Type Department Care Team (Late st Contact Info) Description 03/04/[address] [facility] [place] Family Medicine [address] [place] [address] ProviderJessie MD [address] [place] [address] Social History Tobacco Use Types Packs/Day Years [...] filedocumented in this encounter Care Teams Director Furniture Relationship Specialty Start Date End Date Jay Howell MD [address] [place] [phone] PCP - General Emergency Medicine 11/12/23 documented as of this encounter
--- OUTSIDE RECORDS SUMMARY | 2025-07-28 09:17 | XMS_ITS | Encounter Summary ---
Author Organization [employer] ([place], [place], [place], [place]) Address [address] [place] [address] Care Team Providers Care Wildlife Ecologist Name Role Phone Jay Howell MD Primary Care Provider [phone] Encounter Details Date Type Department Care Team (Late st Contact Info) Description 08/23/2020 Transcribed Document [facility] [place] [address] [place] [address] ProviderJessie MD [address] [place] [address] Social History Tobacco Use Types Packs/Day Years Used Date Smoking Tobacco: Never Assessed Comments Unknown Sex and Gender Information Value Date Recorded Sex Assigned at Not on file Legal Sex Female 7:30 PM CDT Gender Identity Not on file Sexual Orientation Not on file documented as of this encounter Miscellaneous Notes * Cerner Conversion Note - Historical ProviderMD - 08/23/2020 1:04 AM CIVIL ENGINEERING SPECIALIST Electronically signed by [facility] Conversion Director Of Player Personnel Cerner at 02/04/2023 1:59 PM CDT documented in this encounter Plan of Treatment Not on file documented as of this encounter Visit Diagnoses Not on filedocumented in this encounter Care Teams Wildlife Ecologist Relationship Specialty Start Date End Date Jay Howell MD [address] [place] [phone] PCP - General Emergency Medicine 11/12/23 documented as of this encounter
--- OUTSIDE RECORDS SUMMARY | 2025-07-28 09:17 | XMS_ITS | Encounter Summary ---
Author Organization [employer] ([place], [place], [place], [place]) Address [address] [place] [address] Care Team Providers Care Tractor Engine Mechanic Name Role Phone Jay Howell MD Primary Care Provider [phone] Encounter Details Date Type Department Care Team (Late st Contact Info) Description 03/03/2021 Transcribed Document [facility] [place] Family Medicine [facility] [place] [address] ProviderJessie MD [address] [place], [place] [address] Social History Tobacco Use Types Packs/Day Years [...] - Non - Urgent Tracking Group : [facility] ED Viri Gonsales RN - 03/03/2021 [...] 16:07:23 EDT) Problems(Active) Apnea, sleep (SNOMED CT :280349412 ) Name of Problem: Apnea, sleep ; Recorder: JUAN LUIS GIL RN; Confirmation: Confirmed ; Classification: Medical ; Code: 632695754 ; Contributor System: PowerChart ; Last Updated: 11/12/2014 10:12 EST ; Life Cycle Date: 11/12/2014 ; Life Cycle Status: Active ; Vocabulary: SNOMED CT Arthritis (SNOMED CT :9045060 ) Name of Problem: Arthritis ; Recorder: KENYON CHAMBERS RN; Confirmation: Confirmed ; Classification: Medical ; Code: 5885080 ; Contributor System: PowerChart ; Last Updated: 04/10/2016 8:04 EDT ; Life Cycle Date: 08/13/2013 ; Life Cycle Status: Active ; Vocabulary: SNOMED CT Atrial fibrillation with RVR (SNOMED CT :1078159918 ) Name of Problem: Atrial fibrillation with RVR ; Recorder: SANG RICO APRN; Confirmation: Confirmed ; Classification: Medical ; Code: 0836848332 ; Contributor System: PowerChart ; Last Updated: 04/10/2016 8:05 EDT ; Life Cycle Date: 04/10/2016 ; Life Cycle Status: Active ; Responsible Provider: SANG RICO APRN; Vocabulary: SNOMED CT Blood clot (SNOMED CT :837639717 ) Name of Problem: Blood clot ; Recorder: KENYON CHAMBERS RN; Confirmation: Confirmed ; Classification: Patient Stated ; Code: 999101907 ; Contributor System: PowerChart ; Last Updated: [...] Vocabulary: Patient Care Chest pain (SNOMED CT :31881273 ) Name of Problem: Chest pain ; Recorder: SANG RICO APRN; Confirmation: Complaint of ; Classification: Medical ; Code: 13579091 ; Contributor System: PowerChart ; Last Updated: 04/10/2016 8:05 EDT ; Life Cycle Status: Active ; Responsible Provider: SANG RICO APRN; Vocabulary: SNOMED CT Chronic anticoagulation (SNOMED CT :769190902 ) Name of Problem: Chronic anticoagulation ; Recorder: SANG RICO APRN; Confirmation: Confirmed ; Classification: Medical ; Code: 482843225 ; Contributor System: PowerChart ; Last Updated: 04/10/2016 8:05 EDT ; Life Cycle Date: 04/10/2016 ; Life Cycle Status: Active ; Responsible Provider: SANG RICO APRN; Vocabulary: SNOMED CT Clotting disorder (SNOMED CT :392442230 ) Name of Problem: Clotting disorder ; Recorder: KENYON CHAMBERS RN; Confirmation: Confirmed ; Classification: Patient Stated ; Code: 910485931 ; Contributor System: PowerChart ; Last Updated: 03/28/2014 19:29 EDT ; Life Cycle Date: 08/13/2013 ; Life Cycle Status: Active ; Vocabulary: SNOMED CT COPD (SNOMED CT :29441767 ) Name of Problem: COPD ; Recorder: KENYON CHAMBERS RN; Confirmation: Confirmed ; Classification: Medical ; Code: 61125839 ; Contributor System: PowerChart ; Last Updated: 04/10/2016 8:03 EDT ; Life Cycle Date: 08/13/2013 ; Life Cycle Status: Active ; Vocabulary: SNOMED CT Coronary artery disease (SNOMED CT :7870255815 ) Name of Problem: Coronary artery disease ; Recorder: KENYON CHAMBERS RN; Confirmation: Confirmed ; Classification: Medical ; Code: 3705625445 ; Contributor System: PowerChart ; Last Updated: 04/10/2016 8:03 EDT ; Life Cycle Date: 08/13/2013 ; Life Cycle Status: Active ; Vocabulary: SNOMED CT Diabetes mellitus (SNOMED CT :459729134 ) Name of Problem: Diabetes mellitus ; Recorder: KENYON CHAMBERS RN; Confirmation: Confirmed ; Classification: Medical ; Code: 956771810 ; Contributor System: PowerChart ; Last Updated: 04/10/2016 8:04 EDT ; Life Cycle Date: 08/13/2013 ; Life Cycle Status: Active ; Vocabulary: SNOMED CT Emphysema (SNOMED CT :535741976 ) Name of Problem: Emphysema ; Recorder: JUAN LUIS GIL RN; Confirmation: Confirmed ; Classification: Medical ; Code: 570909184 ; Contributor System: PowerChart ; Last Updated: 11/12/2014 10:11 EST ; Life Cycle Date: 11/12/2014 ; Life Cycle Status: Active ; Vocabulary: SNOMED CT GERD - Gastro-esophageal reflux disease (SNOMED CT :6497359640 ) Name of Problem: GERD - Gastro-esophageal reflux disease ; Recorder: KENYON CHAMBERS RN; Confirmation: Confirmed ; Classification: Medical ; Code: 9183263583 ; Contributor System: PowerChart ; Last Updated: [...] Patient Care High blood pressure (SNOMED CT :21585368 ) Name of Problem: High blood pressure ; Recorder: KENYON CHAMBERS RN; Confirmation: Confirmed ; Classification: Medical ; Code: 83852818 ; Contributor System: PowerChart ; Last Updated: 04/10/2016 8:03 EDT ; Life Cycle Date: 08/13/2013 ; Life Cycle Status: Active ; Vocabulary: SNOMED CT History of obstructive sleep apnea (IMO :56518240 ) Name of Problem: History of obstructive sleep apnea ; Recorder: SYSTEM, SYSTEM; Confirmation: Confirmed ; Classification: Medical ; Code: 96701330 ; Last Updated: 08/25/2020 18:21 EST ; Life Cycle Date: 08/25/2020 ; Life Cycle Status: Active ; Vocabulary: IMO Hx of pulmonary embolus (SNOMED CT :714149196 ) Name of Problem: Hx of pulmonary embolus ; Recorder: SANG RICO APRN; Confirmation: Confirmed ; Classification: Medical ; Code: 107792816 ; Contributor System: PowerChart ; Last Updated: 04/10/2016 8:05 EDT ; Life Cycle Date: 04/10/2016 ; Life Cycle Status: Active ; Responsible Provider: SANG RICO APRN; Vocabulary: SNOMED CT Hyperlipidemia (SNOMED CT :37163213 ) Name of Problem: Hyperlipidemia ; Recorder: KENYON CHAMBERS RN; Confirmation: Confirmed ; Classification: Medical ; Code: 73424370 ; Contributor System: [employer] ; Last Updated: 04/10/2016 8:03 EDT ; Life Cycle Date: 08/13/2013 ; Life Cycle Status: Active ; Vocabulary: SNOMED CT Multiple renal cysts (SNOMED CT :780575870 ) Name of Problem: Multiple renal cysts ; Recorder: KENYON CHAMBERS RN; Confirmation: Confirmed ; Classification: Medical ; Code: 051470730 ; Contributor System: [employer] ; Last Updated: 04/10/2016 8:04 EDT ; Life Cycle Date: 08/13/2013 ; Life Cycle Status: Active ; Vocabulary: SNOMED CT Stented coronary artery (SNOMED CT :9443460711 ) Name of Problem: Stented coronary artery ; Recorder: KENYON CHAMBERS RN; Confirmation: Confirmed ; Classification: Medical ; Code: 3488937197 ; Contributor System: [employer] ; Last Updated: 04/10/2016 8:03 EDT ; Life Cycle Date: 08/13/2013 ; Life Cycle Status: Active ; Vocabulary: SNOMED CT Diagnoses(Active) Hip pain-swelling Date: 03/03/2021 ; Diagnosis Type: Reason For Visit ; Confirmation: Complaint of ; Clinical Dx: Hip pain-swelling ; Classification: Medical ; Clinical Service: Emergency medicine ; Code: PNED ; Probability: 0 ; Diagnosis Code: [id number] ED Height and Weight Height Source : Stated Height Entry Format : [place] Height, Feet : 5 ft(Converted to: 152 cm, 60 Inch) Height, Inches : 3 Inch(Converted to: 0 ft 3 Inch, 7.62 cm) Clinical Height : 160.02 cm Weight Source, ED : Critical estimated dosing weight Weight Entry Format : [place] Weight, Pounds : 154 lb Clinical Dosing Weight : 70 kg Body Surface Area (BSA) : 1.73 m2 Body Mass Index : 27.3 kg/m2 (HI) [place] Body Weight (IBW) : 52.02 kg Viri Gonsales RN - 03/03/2021 16:04 EDT Electronically signed by Gayle Finnegan Conversion Business Continuity Management Director Cerner at 02/04/2023 2:20 PM CDT documented in this encounter Plan of Treatment Not on file documented as of this encounter Visit Diagnoses Not on filedocumented in this encounter Care Teams Tractor Engine Mechanic Relationship Specialty Start Date End Date Jay Howell MD [address] [place] [phone] PCP - General Emergency Medicine 11/12/23 documented as of this encounter
--- OUTSIDE RECORDS SUMMARY | 2025-07-28 09:17 | XMS_ITS | Encounter Summary ---
Author Organization [employer] ([place], [place], [place], [place]) Address [address] [place] [address] Care Team Providers Care Coil Winder Repair Name Role Phone Jay Howell MD Primary Care Provider [phone] Encounter Details Date Type Department Care Team (Late st Contact Info) Description 03/03/2021 Transcribed Document [facility] [place] Family Medicine [address] [place] [address] ProviderJessie MD [address] [place] [address] Social History Tobacco Use Types Packs/Day Years Used Date Smoking Tobacco: Never Assessed Comments Unknown Sex and Gender Information Value Date Recorded Sex Assigned at Not on file Legal Sex Female 7:30 PM CDT Gender Identity Not on file Sexual Orientation Not on file documented as of this encounter Miscellaneous Notes * Cerner Conversion Note - Historical ProviderMD - 03/03/2021 3:59 PM CDT [place] Suicide Severity Rating Scale (C-SSRS) Entered On: 03/03/2021 16:25 EDT Performed On: 03/03/2021 16:24 EDT by Marek Sanford Rn [place] Suicide Severity Rating Scale (C-SSRS) CSSRS Past Month Wish to be : No CSSRS Past Month Suicidal Thoughts : No CSSRS Lifetime Suicide Behavior : No Suicide Severity Rating Score : 0 Suicide Severity Rating : No Additional Care Required at this time aMrek Sanford Rn - 03/03/2021 16:24 EDT documented in this encounter Plan of Treatment Not on file documented as of this encounter Visit Diagnoses Not on filedocumented in this encounter Care Teams Coil Winder Repair Relationship Specialty Start Date End Date Jay Howell MD [address] [place] [phone] PCP - General Emergency Medicine 11/12/23 documented as of this encounter
--- OUTSIDE RECORDS SUMMARY | 2025-07-28 09:17 | XMS_ITS | Encounter Summary ---
Author Organization [employer] ([place], [place], [place], [place]) Address [address] [place] [address] Care Team Providers Care Perforator Name Role Phone Jay Howell MD Primary Care Provider [phone] Encounter Details Date Type Department Care Team (Late st Contact Info) Description 03/03/2021 Transcribed Document [facility] [place] [address] ProviderJessie MD [address] [place] [address] Social History Tobacco Use Types [...] Jessie ProviderMD - 03/03/2021 5:09 PM CDT [facility] [place] [address] SKYLER MONTOYA :1940 Visit Time:03/03/2021 Your Visit [...] call you with a follow-up appointment Where: [address] [place] [address] [facility] (1) Allergies Macrodantin morphine (rash, rash) Immunizations This Visit No Immunizations Found Medications What How Much When Instructions Next Dose acetaminophen-hydrocodone ([place] 7.5 mg-325 mg oral tablet) 1 Tablet(s) Oral Every 6 Hours as needed for for pain Pickup at [place] [address] lidocaine topical (Lidoderm 5% topical film) 1 Patch(es) TransDermal Every Day Pickup at [place] [address] ALPRAZolam (Xanax 0.5 mg oral tablet) 1 [...] Information MART[address] [address] 712: [address] [place] [id number] [phone] The home medications listed are only as [...] that cause pain. General instructions ??? Take trxg-vkf-esuqqtc and prescription medicines only as told by [...] provider. Document Revised: 02/18/2020 Document Reviewed: 02/18/2020 [employer] Patient Education ?? 2020 [employer]. Emergency Awareness and Preventative Care STROKE is [...] Assistance with quitting is available by contacting 7-534-GDQQ-NOW. This is a free resource providing counseling, [...] was given the opportunity to ask questions. Patient/Vegetable Washing Machine Operator Name: Patient/Vegetable Washing Machine Operator Signature: Relationship to Patient: Clinician/Hospital Vegetable Washing Machine Operator Signature: Please Provide a Telephone Number Where You Can Be Reached: Is it Permissible To Leave a Message? Date: Electronically signed by Sivan [facility] Conversion Oracle Pl Sql Developer Cerner at 02/04/2023 1:58 PM CDT documented in this encounter Plan of Treatment Not on file documented as of this encounter Visit Diagnoses Not on filedocumented in this encounter Care Teams Perforator Relationship Specialty Start Date End Date Jay Howell MD [address] [place] [phone] PCP - General Emergency Medicine 11/12/23 documented as of this encounter
--- OUTSIDE RECORDS SUMMARY | 2025-07-28 09:17 | XMS_ITS | Encounter Summary ---
Author Organization [employer] ([place], [place], [place], [place]) Address [address] [place] [address] Care Team Providers Care Dry Box Operator Name Role Phone Jay Howell MD Primary Care Provider [phone] Encounter Details Date Type Department Care Team (Late st Contact Info) Description 06/14/2020 Transcribed Document [facility] [place] [address] [place] [address] ProviderJessie MD [address] [place] [address] Social History Tobacco Use Types Packs/Day Years Used Date Smoking Tobacco: Never Assessed Comments Unknown Sex and Gender Information Value Date Recorded Sex Assigned at Not on file Legal Sex Female 7:30 PM CDT Gender Identity Not on file Sexual Orientation Not on file documented as of this encounter Miscellaneous Notes * Cerner Conversion Note - Jessie ProviderMD - 06/14/2020 2:00 AM CDT Strawhat Blocking Operator Details Entered On: 06/14/2020 2:51 EDT Performed [...] filedocumented in this encounter Care Teams Dry Box Operator Relationship Specialty Start Date End Date Jay Howell MD [address] [place] [phone] PCP - General Emergency Medicine 11/12/23 documented as of this encounter
--- OUTSIDE RECORDS SUMMARY | 2025-07-28 09:17 | XMS_ITS | Encounter Summary ---
Author Organization [employer] ([place], [place], [place], [place]) Address [address] [place] [address] Care Team Providers Care Apprentice Jockey Name Role Phone Jay Howell MD Primary Care Provider [phone] Encounter Details Date Type Department Care Team (Late st Contact Info) Description 12/21/2018 Transcribed Document [facility] [place] [facility] [place] [address] ProviderJessie MD [address] [place] [address] Social History Tobacco Use Types Packs/Day Years Used Date Smoking Tobacco: Never Assessed Comments Unknown Sex and Gender Information Value Date Recorded Sex Assigned at Not on file Legal Sex Female 7:30 PM CDT Gender Identity Not on file Sexual Orientation Not on file documented as of this encounter Miscellaneous Notes * Cerner Conversion Note - Historical MD Alpa - 12/21/2018 7:18 AM BENDING PRESS OPERATOR Patient: SKYLER MONTOYA Age: 77 years Sex: [...] of motion, Normal strength. Integumentary: Warm, Dry, [place]. Neurologic: Alert, Oriented. Psychiatric: Cooperative, Appropriate mood & affect. Results Review Telemetry DEC 21 04:17 140 110 10 / H 153 3.8 22 0.70 \ DEC 21 04:17 \ 11.5 / 7.2 L 150 / 35.7 \ [facility] 12/20/18; Dr. Fredy Pacheco TECHNIQUE: A 5/6-Macedonian sheath placed in the right femoral artery. Right iliac artery angiography was performed using a JR4 diagnostic catheter due to difficulty in advancing safety J-wire across the proximal right common iliac artery. Angiography revealed patent iliac artery with a kink proximally. There is no pressure gradient across the kink. The short 6-Macedonian sheath was switched out for a 25 cm 6-Macedonian Arrow sheath with the sheath tip into the abdominal aorta for angiography and percutaneous intervention. JL4, JR4 diagnostic catheters were used for selective angiography of the wilton vessels. JR4 diagnostic catheter was used for selective angiography of the bypass grafts. A 6-Macedonian pigtail catheter was advanced in the left [...] additional 162 mg of aspirin in the nursery laborer. She was given Aggrastat bolus. Patient [...] on filedocumented in this encounter Care Teams Apprentice Jockey Relationship Specialty Start Date End Date Jay Howell MD [address] [place] [phone] PCP - General Emergency Medicine 11/12/23 documented as of this encounter
--- OUTSIDE RECORDS SUMMARY | 2025-07-28 09:17 | XMS_ITS | Encounter Summary ---
Author Organization [employer] ([place], [place], [place], [place]) Address [address] [place] [address] Care Team Providers Care Wallboard Worker Name Role Phone Jay Howell MD Primary Care Provider [phone] Encounter Details Date Type Department Care Team (Late st Contact Info) Description 06/14/2020 Transcribed Document [facility] [place] Medicine [address] [place] [address] ProviderJessie MD [address] [place] [address] Social History Tobacco Use Types Packs/Day Years [...] 06/14/2020 6:24 EDT Electronically signed by Sivan [facility] Conversion Auto Travel Counselor Cerner at 02/04/2023 2:11 PM CDT documented in this encounter Plan of Treatment Not on file documented as of this encounter Visit Diagnoses Not on filedocumented in this encounter Care Teams Wallboard Worker Relationship Specialty Start Date End Date Jay Howell MD [address] [place] [phone] PCP - General Emergency Medicine 11/12/23 documented as of this encounter
--- OUTSIDE RECORDS SUMMARY | 2025-07-28 09:17 | XMS_ITS | Encounter Summary ---
Author Organization [employer] ([place], [place], [place], [place]) Address [address] [place] [address] Care Team Providers Care Assembler Fluorescent Lights Name Role Phone Jay Howell MD Primary Care Provider [phone] Encounter Details Date Type Department Care Team (Late st Contact Info) Description 08/22/2020 Transcribed Document [facility] [place] [address] [place] [address] ProviderJessie MD [address] [place] [address] Social History Tobacco Use Types Packs/Day Years Used Date Smoking Tobacco: Never Assessed Comments Unknown Sex and Gender Information Value Date Recorded Sex Assigned at Not on file Legal Sex Female 7:30 PM CDT Gender Identity Not on file Sexual Orientation Not on file documented as of this encounter Miscellaneous Notes * Cerner Conversion Note - Jessie ProviderMD - 08/22/2020 8:49 PM STAPLE SHEAR OPERATOR ED Assessment Entered On: 08/23/2020 1:11 EST Performed On: 08/22/2020 21:11 EST by Oumou Augustine RN ED Quick Look Assessment Level of Consciousness : Alert Orientation : Oriented x 4 Oumou Augustine RN - 08/23/2020 1:08 EST ED General-Functional Assess Preferred Communication Mode : Verbal Communication Barrier : None Primary Language : Tajik Any Spiritual/Cultural Needs or Requests : No [...] 08/23/2020 1:08 EST Electronically signed by Sivan [facility] Conversion Forestry Aide Cerner at 02/04/2023 1:58 PM CDT documented in this encounter Plan of Treatment Not on file documented as of this encounter Visit Diagnoses Not on filedocumented in this encounter Care Teams Assembler Fluorescent Lights Relationship Specialty Start Date End Date Jay Howell MD [address] [place] [phone] PCP - General Emergency Medicine 11/12/23 documented as of this encounter
--- OUTSIDE RECORDS SUMMARY | 2025-07-28 09:17 | XMS_ITS | Encounter Summary ---
Author Organization [employer] ([place], [place], [place], [place]) Address [address] [address] Care Team Providers Care Maintenance Fitter Name Role Phone Jay Howell MD Primary Care Provider [phone] Encounter Details Date Type Department Care Team (Late st Contact Info) Description 08/23/2020 Transcribed Document [facility] [place] [address] [place] [address] ProviderJessie MD [address] [place] [address] Social History Tobacco Use Types [...] Jessie Yuen MD - 08/23/2020 1:05 AM DOUBLE ENDING MACHINE OPERATOR [facility] [place], [place] [id number] SKYLER MONTOYA :1940 Visit Time:08/22/2020 Your Visit [...] SWELLING Where: [address] [place] [address]- Business (1) Allergies Macrodantin morphine (rash, rash) nitrofurantoin (blisters, blisters) Immunizations This Visit No Immunizations Found Medications What How Much When Instructions Next Dose acetaminophen-hydrocodone ([place] 7.5 mg-325 mg oral tablet) 1 Tablet(s) [...] ( 0.0 and 7.0 ) [place] #: 0.71 K/uL -- Normal range between ( 0.16 and 1.00 ) Eos #: 0.15 x10(3)/uL -- Normal range between ( 0.00 and 0.80 ) [place] %: 10.1 % -- Normal range between [...] these instructions at home: Medicines ??? Take bwrm-vae-feyjvbf and prescription medicines only as told by [...] and water are not available, use hand windshield wiper repairer. ??? Change your dressing and packing as [...] 12/25/2012 Document Revised: 09/03/2019 Document Reviewed: 09/03/2019 [employer] Patient Education ?? 2020 [employer] Skin Abscess A skin abscess is [...] these instructions at home: Medicines ??? Take vvdb-mly-ymaeaya and prescription medicines only as told by [...] and water are not available, use hand windshield wiper repairer. ??? Check your abscess every day for [...] 07/13/2006 Document Revised: 01/24/2020 Document Reviewed: 11/16/2018 [employer] Simple Patient Education ?? 2020 [employer]. Emergency Awareness and Preventative Care STROKE is [...] Assistance with quitting is available by contacting 0-138-GPUU-NOW. This is a free resource providing counseling, [...] was given the opportunity to ask questions. Patient/Heel Seat Laster Name: Patient/Heel Seat Laster Signature: Relationship to Patient: Clinician/Hospital Heel Seat Laster Signature: Please Provide a Telephone Number Where You Can Be Reached: Is it Permissible To Leave a Message? Date: Electronically signed by Gayle Finnegan Conversion Sociology Adjunct Instructor Cerner at 02/04/2023 1:56 PM CDT documented in this encounter Plan of Treatment Not on file documented as of this encounter Visit Diagnoses Not on filedocumented in this encounter Care Teams Maintenance Fitter Relationship Specialty Start Date End Date Jay Howell MD [address] [place] [phone] PCP - General Emergency Medicine 11/12/23 documented as of this encounter
--- OUTSIDE RECORDS SUMMARY | 2025-07-28 09:17 | XMS_ITS | Encounter Summary ---
Author Organization [employer] ([place], [place], [place], [place]) Address [address] [place] [address] Care Team Providers Care Chief Port Director Name Role Phone Jay Howell MD Primary Care Provider [phone] Encounter Details Date Type Department Care Team (Late st Contact Info) Description 10/13/2020 Transcribed Document [facility] [place] [address] [place] [address] ProviderJessie MD [address] [place] [address] Social History Tobacco Use Types Packs/Day Years Used Date Smoking Tobacco: Never Assessed Comments Unknown Sex and Gender Information Value Date Recorded Sex Assigned at Not on file Legal Sex Female 7:30 PM CDT Gender Identity Not on file Sexual Orientation Not on file documented as of this encounter Miscellaneous Notes * Cerner Conversion Note - Historical MD Alpa - 10/13/2020 6:59 PM CLASSIFIED AD TAKER Patient: SKYLER MONTOYA Age: 79 Years Sex: [...] results RTC prn Electronically signed by Sivan [facility] Conversion Overhead Crane Technician Cerner at 02/04/2023 2:05 PM CDT documented in this encounter Plan of Treatment Not on file documented as of this encounter Visit Diagnoses Not on filedocumented in this encounter Care Teams Chief Port Director Relationship Specialty Start Date End Date Jay Howell MD [address] [place] [phone] PCP - General Emergency Medicine 11/12/23 documented as of this encounter
--- OUTSIDE RECORDS SUMMARY | 2025-07-28 09:17 | XMS_ITS | Encounter Summary ---
Author Organization [employer] ([place], [place], [place], [place]) Address [address] [place] [address] Care Team Providers Care Graphics Software Engineer Name Role Phone Jay Howell MD Primary Care Provider [phone] Encounter Details Date Type Department Care Team (Late st Contact Info) Description 06/19/2020 Transcribed Document [facility] [place] [address] [place] [address] ProviderJessie MD [address] [place] [address] Social History Tobacco Use Types Packs/Day Years [...] On: 06/19/2020 12:12 EDT by Sri Kruse, Net Software Developer Patient Resource Center Provider Status : EST [...] at ED : Other Primary Language : Palestinian [facility] Resource [place] Comment : Patient needs follow ups with PCP and Cardiology. Appointment already scheduled with Gabriella Asencio. I called and scheduled appointment with Dr. Tara Moeller and called patient with appointment. Follow Up Needed : No Sri Kruse, Net Software Developer - 06/19/2020 12:12 EDT Electronically signed by Sivan [facility] Conversion Customer Manager Cerner at 02/04/2023 2:15 PM CDT documented in this encounter Plan of Treatment Not on file documented as of this encounter Visit Diagnoses Not on filedocumented in this encounter Care Teams Graphics Software Engineer Relationship Specialty Start Date End Date Jay Howell MD [address] [place] [phone] PCP - General Emergency Medicine 11/12/23 documented as of this encounter
--- OUTSIDE RECORDS SUMMARY | 2025-07-28 09:17 | XMS_ITS | Encounter Summary ---
Author Organization [employer] ([place], [place], [place], [place]) Address [address] [place] [address] Care Team Providers Care Senior Training Specialist Name Role Phone Jay Howell MD Primary Care Provider [phone] Encounter Details Date Type Department Care Team (Late st Contact Info) Description 03/03/2021 Transcribed Document [facility] [place] [address] [place] [address] ProviderJessie MD [address] [place] [address] Social History Tobacco Use Types Packs/Day Years [...] CHARLEE - EVA WESLEY RN PCI w/ [place] stent to D1 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 femur repair. Appendectomy ([id number]). uterine suspension. Hysterectomy (752199903). back surgury. Cholecystectomy ([id number]). Hip replacement ([id number]). cataract surgury.. Family history: Cardiomyopathy Child Stroke [...] EDT Height Source Stated Height Entry Format [place] Height/Length, BOTSWANAN (ft) 5 ft Height/Length BOT[place]NAN 3 Inch CLINICALHEIGHT 160.02 cm [place] Body Weight 52.02 kg Weight Source, ED Critical estimated dosing weight Weight Entry Format [place]as Weight Vietnamese lb 154 lb CLINICALWEIGHT 70 kg Body [...] Radiology results: Radiology Results (Last 48 hours) [id number] -- 03/03/2021 15:59 CR Hip Uni Comp [...] 17:04 EDT, Discharge to: Home. Prescriptions: Prescription Solution Design And Analysis Manager Pharmacy: [facility] 7.5 mg-325 mg oral tablet (Prescribe): 1 [...] filedocumented in this encounter Care Teams Senior Training Specialist Relationship Specialty Start Date End Date Jay Howell MD [address] [place] [phone] PCP - General Emergency Medicine 11/12/23 documented as of this encounter
--- OUTSIDE RECORDS SUMMARY | 2025-07-28 09:17 | XMS_ITS | Encounter Summary ---
Author Organization [employer] ([place], [place], [place], [place]) Address [address] [place] [address] Care Team Providers Care Slip Cover Maker Name Role Phone Jay Howell MD Primary Care Provider [phone] Encounter Details Date Type Department Care Team (Late st Contact Info) Description 06/14/2020 Transcribed Document [facility] [address] [place] [address] Cheyenne Flores MD [address] [place] [phone] Social History Tobacco Use Types Packs/Day [...] FREDY YAÑEZ MD-CAR (Cardiology) - chest pain CHTEAN CLEANING MD-CAR Current Diet Order Diet, Adult - Ordered -- Start: 06/13/20 16:23:00 EDT, Cardiac Diet, 60 gm carbs:[id number] george, Isolation: Standard Precautions Pending Labs Ordered PT/INR Prothrombin Time Specimen Type: Blood, Anticoagulant: Yes warfarin, AM Draw collect, 06/14/20 4:00:00 EDT, Daily, Lab Collect Electronically signed by Sivan [facility] Conversion President Sales And Marketing Cerner at 02/04/2023 1:57 PM CDT documented in this encounter Plan of Treatment Not on file documented as of this encounter Visit Diagnoses Not on filedocumented in this encounter Care Teams Slip Cover Maker Relationship Specialty Start Date End Date Jay Howell MD [address] [place] [phone] PCP - General Emergency Medicine 11/12/23 documented as of this encounter
--- OUTSIDE RECORDS SUMMARY | 2025-07-28 09:17 | XMS_ITS | Encounter Summary ---
Author Organization [employer] ([place], [place], [place], [place]) Address [address] [place] [address] Care Team Providers Care Electrocardiograph Technician Name Role Phone Jay Howell MD Primary Care Provider [phone] Encounter Details Date Type Department Care Team (Late st Contact Info) Description 02/13/2021 Transcribed Document [facility] [place] [facility] [place] [address] ProviderJessie MD [address] [place], [place] [address] Social History Tobacco Use Types Packs/Day Years [...] - Start Time: 02/13/21 11:50:00 (02/13/21 12:00:33) documented in this encounter Plan of Treatment Not on file documented as of this encounter Visit Diagnoses Not on filedocumented in this encounter Care Teams Electrocardiograph Technician Relationship Specialty Start Date End Date Jay Howell MD [address] [place] [phone] PCP - General Emergency Medicine 11/12/23 documented as of this encounter
--- OUTSIDE RECORDS SUMMARY | 2025-07-28 09:18 | XMS_ITS | Encounter Summary ---
Author Organization [employer] ([place], [place], [place], [place]) Address [address] [place] [address] Care Team Providers Care Spa Assistant Manager Name Role Phone Jay Howell MD Primary Care Provider [phone] Encounter Details Date Type Department Care Team (Late st Contact Info) Description 12/21/2018 Transcribed Document [facility] [place] [address] [place] [address] ProviderJessie MD [address] [place] [address] Social History Tobacco Use Types Packs/Day Years Used Date Smoking Tobacco: Never Assessed Comments Unknown Sex and Gender Information Value Date Recorded Sex Assigned at Not on file Legal Sex Female 7:30 PM CDT Gender Identity Not on file Sexual Orientation Not on file documented as of this encounter Miscellaneous Notes * Cerner Conversion Note - Historical ProviderMD - 12/21/2018 9:20 AM SPORTS INSTRUCTOR Spiritual Care Short Form Entered On: 12/21/2018 22:31 EST Performed On: 12/21/2018 9:20 EST by JAZZ PINA Chaplain-Non Cert General Information, Spiritual Care Spiritual Care Referred by : Petroleum Blending Plant Operator initiated Reason for Visit : Initial Ministry Provided to : Patient Intervention/Comment/Summary Points : Visited conducted by Spiritual Curber shilo Velasquez Nondenominational Preference : Yazidi JAZZ PINA Chaplain-Magalis Del Castillo - 12/21/2018 22:31 EST documented in this encounter Plan of Treatment Not on file documented as of this encounter Visit Diagnoses Not on filedocumented in this encounter Care Teams Spa Assistant Manager Relationship Specialty Start Date End Date Jay Howell MD [address] [place] [phone] PCP - General Emergency Medicine 11/12/23 documented as of this encounter
--- OUTSIDE RECORDS SUMMARY | 2025-07-28 09:18 | XMS_ITS | Encounter Summary ---
Author Organization [employer] ([place], [place], [place], [place]) Address [address] [place] [address] Care Team Providers Care Chain Hooker Name Role Phone Jay Howell MD Primary Care Provider [phone] Encounter Details Date Type Department Care Team (Late st Contact Info) Description 12/20/2018 Transcribed Document [facility] [place] [address] [place] [address] ProviderJessie MD [address] [place] [address] Social History Tobacco Use Types Packs/Day Years Used Date Smoking Tobacco: Never Assessed Comments Unknown Sex and Gender Information Value Date Recorded Sex Assigned at Not on file Legal Sex Female 7:30 PM CDT Gender Identity Not on file Sexual Orientation Not on file documented as of this encounter Miscellaneous Notes * Cerner Conversion Note - Historical ProviderMD - 12/20/2018 12:01 PM PSYCHOLOGIST EXPERIMENTAL Spiritual Care Assessment Entered On: 12/20/2018 13:37 EST Performed On: 12/20/2018 13:13 EST by ARTHUR HONEYCUTT General Information Initial Visit : Yes Referred by : Patient Referral Reason Comment : Advance directive Ministry Provided to : Patient, Family/Significant other Pentecostal Preference : Religion ARTHUR HONEYCUTT - 12/20/2018 13:35 EST Spiritual [...] - 12/20/2018 13:35 EST Electronically signed by [facility] Conversion Dinkey Locomotive Engineer Cerner at 02/04/2023 2:01 PM CDT documented in this encounter Plan of Treatment Not on file documented as of this encounter Visit Diagnoses Not on filedocumented in this encounter Care Teams Chain Hooker Relationship Specialty Start Date End Date Jay Howell MD [address] [place] [phone] PCP - General Emergency Medicine 11/12/23 documented as of this encounter
--- OUTSIDE RECORDS SUMMARY | 2025-07-28 09:18 | XMS_ITS | Encounter Summary ---
Author Organization [employer] ([place], [place], [place], [place]) Address [address] [place] [address] Care Team Providers Care Advertiser Name Role Phone Jay Howell MD Primary Care Provider [phone] Encounter Details Date Type Department Care Team (Late st Contact Info) Description 12/12/2018 Transcribed Document [facility] [place] [address] [place] [address] ProviderJessie MD [address] [place], [place] [address] Social History Tobacco Use Types Packs/Day Years Used Date Smoking Tobacco: Never Assessed Comments Unknown Sex and Gender Information Value Date Recorded Sex Assigned at Not on file Legal Sex Female 7:30 PM CDT Gender Identity Not on file Sexual Orientation Not on file documented as of this encounter Miscellaneous Notes * Cerner Conversion Note - Historical ProviderMD - 12/12/2018 10:20 PM RADIO MECHANIC Electronically signed by [facility] Conversion Director Of Dance Cerner at 02/04/2023 1:59 PM CDT documented in this encounter Plan of Treatment Not on file documented as of this encounter Visit Diagnoses Not on filedocumented in this encounter Care Teams Advertiser Relationship Specialty Start Date End Date Jay Howell MD [address] [place] [phone] PCP - General Emergency Medicine 11/12/23 documented as of this encounter
--- OUTSIDE RECORDS SUMMARY | 2025-07-28 09:18 | XMS_ITS | Encounter Summary ---
Author Organization [employer] ([place], [place], [place], [place]) Address [address] [place] [address] Care Team Providers Care Flat Locker Name Role Phone Jay Howell MD Primary Care Provider [phone] Encounter Details Date Type Department Care Team (Late st Contact Info) Description 08/29/2020 Transcribed Document [facility] [place] [address] [place] [address] ProviderJessie MD [address] [place], [place] [address] Social History Tobacco Use Types Packs/Day Years Used Date Smoking Tobacco: Never Assessed Comments Unknown Sex and Gender Information Value Date Recorded Sex Assigned at Not on file Legal Sex Female 7:30 PM CDT Gender Identity Not on file Sexual Orientation Not on file documented as of this encounter Miscellaneous Notes * Cerner Conversion Note - Jessie ProviderMD - 08/29/2020 1:45 PM ACTIVITIES THERAPIST RX Interventions Entered On: 08/29/2020 15:05 EST [...] - 08/29/2020 15:03 EST Electronically signed by [facility] Conversion Jack Spooler Tender Cerner at 02/04/2023 2:17 PM CDT documented in this encounter Plan of Treatment Not on file documented as of this encounter Visit Diagnoses Not on filedocumented in this encounter Care Teams Flat Locker Relationship Specialty Start Date End Date Jay Howell MD [address] [place] [phone] PCP - General Emergency Medicine 11/12/23 documented as of this encounter
--- OUTSIDE RECORDS SUMMARY | 2025-07-28 09:18 | XMS_ITS | Encounter Summary ---
Author Organization [employer] ([place], [place], [place], [place]) Address [address] [place] [address] Care Team Providers Care Water Quality Analyst Name Role Phone Jay Howell MD Primary Care Provider [phone] Encounter Details Date Type Department Care Team (Late st Contact Info) Description 12/20/2018 Transcribed Document [facility] Family Medicine [address] [place] [address] ProviderJessie MD [address] [place] [address] Social History Tobacco Use Types Packs/Day Years Used Date Smoking Tobacco: Never Assessed Comments Unknown Sex and Gender Information Value Date Recorded Sex Assigned at Not on file Legal Sex Female 7:30 PM CDT Gender Identity Not on file Sexual Orientation Not on file documented as of this encounter Miscellaneous Notes * Cerner Conversion Note - Historical ProviderMD - 12/20/2018 11:57 AM CUSTOM BOW MAKER Pre Procedure Adult Entered On: 12/20/2018 12:01 EST Performed On: 12/20/2018 11:57 EST by VANCE BELTRAN RN Height and Weight, Clinical Dosing Height Source : Stated Height Entry Format : [place] Height, Feet : 5 ft(Converted to: 152 cm, 60 Inch) Height, Inches : 3 Inch(Converted to: 0 ft 3 Inch, 7.62 cm) Clinical Height : 160.02 cm Weight Source : Standing scale Weight Entry Format : [place] Clinical Dosing Weight : 71.82 kg Weight, Pounds : 158 lb Body Surface Area (BSA) : 1.75 m2 Body Mass Index : 28 kg/m2 (HI) [place] Body Weight : 52 kg VANCE BELTRAN [...] Info Preferred Name : ilsa Support Person/Patient Lock And Dam Operator : Deanna Support Person/Pt Rep Name : Willard Contact Password : Marvin Support Person/Pt Rep Contact Information : [id number] Want Family/Rep/Phys Notified of Admit : No Emergency Contact #1 : na Emergency Contact #1 Phone Number : [place] Emergency Contact #1 Relationship : na Emergency Contact #2 : na Emergency Contact #2 Phone Number : [place] Emergency Contact #2 Relationship : na Primary Language : Slovak Preferred Communication Mode : Verbal Communication Barrier [...] Scale Risk Level : 0-24 Low Risk [place] Fall Interventions : Bed in low position, Call device within reach, Non-slip footwear, Wheels locked VANCE BELTARN RN - 12/20/2018 11:57 EST Valuables and Belongings Valuables and Belongings : Clothing Clothing : Common streetwear Clothing Disposition : Bedside VANCE BELTRAN RN - 12/20/2018 11:57 EST Electronically signed by Sivan [facility] Conversion Passenger Flagman Cerner at 02/04/2023 2:07 PM CDT documented in this encounter Plan of Treatment Not on file documented as of this encounter Visit Diagnoses Not on filedocumented in this encounter Care Teams Water Quality Analyst Relationship Specialty Start Date End Date Jay Howell MD [address] [place] [phone] PCP - General Emergency Medicine 11/12/23 documented as of this encounter
--- OUTSIDE RECORDS SUMMARY | 2025-07-28 09:18 | XMS_ITS | Encounter Summary ---
Author Organization [employer] ([place], [place], [place], [place]) Address [address] [place] [address] Care Team Providers Care Environmental Programs Specialist Name Role Phone Jay Howell MD Primary Care Provider [phone] Encounter Details Date Type Department Care Team (Late st Contact Info) Description 12/12/[address] [facility] Family Medicine [address] [place] [address] ProviderJessie MD [address] [place] [address] Social History Tobacco Use Types Packs/Day Years Used Date Smoking Tobacco: Never Assessed Comments Unknown Sex and Gender Information Value Date Recorded Sex Assigned at Not on file Legal Sex Female 7:30 PM CDT Gender Identity Not on file Sexual Orientation Not on file documented as of this encounter Miscellaneous Notes * Cerner Conversion Note - Historical ProviderMD - 12/12/2018 9:44 PM FLAGSETTER Patient: SKYLER MONTOYA Age: 77 years Sex: [...] L arm. reports seen bt card in [place] for same earlier this week, reports she [...] and was advised to follow-up with her scrap picker. She had labs done this morning, but [...] wants to go home and see her scrap picker tomorrow. Review of Systems Additional review of [...] normal sinus rhythm, No ST changes, normal SD & QRS intervals, EP Interp. Results review: [...] % 36.4 % Lymph # 2.22 x10(3)/uL [place]ck[place] % 10.7 % HI [place] # 0.65 K/uL Eos % 0.0 % [...] evaluation at any time. Advised follow-up with scrap picker in the morning and return to the closest ER for any recurrence or worsening of symptoms.. Impression and Plan Diagnosis Chest pain - Discharge, Medical Plan Condition: Stable. Patient was given the following educational materials: Angina Pectoris. Follow up with: TARA CHEN Within 2 to 3 days; Follow-up with your scrap picker in the morning. Return to the closest emergency department for any acute new concerns or recurrence of symptoms. Within in AM. Counseled: Patient, Family, Regarding diagnosis, Regarding diagnostic results, Regarding treatment plan, Patient indicated understanding of instructions. documented in this encounter Plan of Treatment Not on file documented as of this encounter Visit Diagnoses Not on filedocumented in this encounter Care Teams Environmental Programs Specialist Relationship Specialty Start Date End Date Jay Howell MD [address] [place] [phone] PCP - General Emergency Medicine 11/12/23 documented as of this encounter
--- OUTSIDE RECORDS SUMMARY | 2025-07-28 09:18 | XMS_ITS | Encounter Summary ---
Author Organization [employer] ([place], [place], [place], [place]) Address [address] [place] [address] Care Team Providers Care Broach Setter Name Role Phone Jay Howell MD Primary Care Provider [phone] Encounter Details Date Type Department Care Team (Late st Contact Info) Description 12/14/2018 Transcribed Document [facility] Family Medicine [address] [place] [address] ProviderJessie MD [address] [place], [place] [id number] Social History Tobacco Use Types Packs/Day Years Used Date Smoking Tobacco: Never Assessed Comments Unknown Sex and Gender Information Value Date Recorded Sex Assigned at Not on file Legal Sex Female 7:30 PM CDT Gender Identity Not on file Sexual Orientation Not on file documented as of this encounter Miscellaneous Notes * Cerner Conversion Note - Jessie ProviderMD - 12/14/2018 4:47 PM DIGITAL STRATEGY MANAGER CR Chest 2 Vws Ordered: 12/12/2018 Auth (Verified) Reason for Exam: cp 12/13/2018 11:39 12/14/2018 16:47 (FLORENTIN CAMARGO) No further action required documented in this encounter Plan of Treatment Not on file documented as of this encounter Visit Diagnoses Not on filedocumented in this encounter Care Teams Broach Setter Relationship Specialty Start Date End Date Jay Howell MD [address] [place] [phone] PCP - General Emergency Medicine 11/12/23 documented as of this encounter
--- OUTSIDE RECORDS SUMMARY | 2025-07-28 09:18 | XMS_ITS | Clinical Summary ---
Author Organization [employer] ([place], [place], [place], [place]) Address [address] [place] [address] Care Team Providers Care Auto Locator Name Role Phone Jay Howell MD Primary Care Provider [phone] Allergies Active Allergy Reactions Criticality Noted Date [...] Take 100 mg by mouth daily. Active HYDROcodone-caute taminophen (NORCO 5-325) 5-325 mg per tablet [...] Date Kennedy rded Speak language other than Swazi at home Not on file 10/30/2023 Want [...] history exists Insurance MEDICARE [place] [address] [place] [address] [place] [id number] Advance Directives For more information, please contact: [phone] * Full Code (Latest Code Status on File) Date Activated Date Inactivated Comments 11/25/2022 10:41 AM 11/26/2022 5:33 PM * Full Code Date Activated Date Inactivated Comments 11/25/2022 8:11 AM 11/25/2022 10:41 AM -Attempt Resu scitation if person has no pulse and is not breathing. -If no pulse or not breathing attempt CPR/CODE. -Call Rapid Response if patient is in distress. Care Teams Auto Locator Relationship Specialty Start Date End Date Jay Howell MD [address] [place] [phone] PCP - General Emergency Medicine 11/12/23
--- OUTSIDE RECORDS SUMMARY | 2025-07-28 09:18 | XMS_ITS | Encounter Summary ---
Author Organization [employer] ([place], [place], [place], [place]) Address [address] [place] [address] Care Team Providers Care Technology Teacher Name Role Phone Jay Howell MD Primary Care Provider [phone] Encounter Details Date Type Department Care Team (Late st Contact Info) Description 08/29/2020 Transcribed Document [facility] Family Medicine [address] [place] [address] ProviderJessie MD [address] [place] [address] Social History Tobacco Use Types Packs/Day Years Used Date Smoking Tobacco: Never Assessed Comments Unknown Sex and Gender Information Value Date Recorded Sex Assigned at Not on file Legal Sex Female 7:30 PM CDT Gender Identity Not on file Sexual Orientation Not on file documented as of this encounter Miscellaneous Notes * Cerner Conversion Note - Historical ProviderMD - 08/29/2020 1:02 PM DIGITAL PRE PRESS OPERATOR Patient: SKYLER MONTOYA Age: 79 years [...] level of muscle per surgery *Operation RIGHT TEACHER BALLET access - ultrasound guided Aortogram with LEFT lower extremity run-off LEFT PT angioplasty (2.5-3d445cm Nanocross) LEFT peroneal angioplasty (2.5-6g867st Nanocross) RIGHT TEACHER BALLET closure (Angioseal) LEFT leg debridement 08/29/20 doing [...] Level 0.70 mg/dL 08/29/2020 02:04 Bun/Creatinine 22.9 [place] 08/29/2020 02:04 eGFR >60 mL/min/1.73m2 08/29/2020 02:04 eGFR NonAfrican >60 mL/min/1.73m2 08/29/2020 02:04 Bun/Creatinine 22.9 [place] 08/29/2020 07:33 Sodium Level 138 mmol/L 08/29/2020 02:04 Potassium Level 3.3 mmol/L LOW 08/29/2020 02:04 Chloride Level 108 mmol/L 08/29/2020 02:04 Carbon Dioxide Level 23 mmol/L 08/29/2020 02:04 Anion Gap 10 08/29/2020 02:04 Blood Urea Nitrogen 16 mg/dL 08/29/2020 02:04 Glucose Level 108 mg/dL [place] 08/29/2020 02:04 Calcium Level 9.1 mg/dL 08/29/2020 02:04 MICRO: ACC: [id number] ORDER: Culture Wound and Stain DATE: 08/26/2020 15:23 SOURCE: Surgical Swab SITE: Leg Lower L Reports Final 08/29/2020 08:29 No growth Pre 08/27/2020 07:14 No growth GS 08/26/2020 18:13 Few White Blood Cells No organisms seen. == ACC: [id number] ORDER: Culture Wound and Stain DATE: 08/25/2020 05:00 SOURCE: Wound SITE: Leg Lower L Reports Final 08/28/2020 08:57 No growth Pre 08/26/2020 06:23 No growth GS 08/25/2020 07:26 No organisms seen. Few White Blood Cells Rare epithelial cells == ACC: [id number] ORDER: Culture AFB and Stain DATE: 08/26/2020 13:56 SOURCE: Surgical Swab SITE: Leg Lower L Reports AFS 08/27/2020 13:07 No Acid Fast Bacilli seen == ACC: [id number] ORDER: Culture Anaerobic DATE: 08/26/2020 13:56 SOURCE: Surgical Swab SITE: Leg Lower L Reports Pre 08/28/2020 07:01 No Anaerobic growth Pre 08/27/2020 07:47 Culture in progress == ACC: [id number] ORDER: Culture Fungus DATE: 08/26/2020 13:56 SOURCE: Surgical Swab SITE: Leg Lower L Reports SINDI 08/26/2020 16:09 No Fungal elements seen == ACC: [id number] ORDER: Culture Blood DATE: 08/25/2020 05:01 SOURCE: Blood SITE: Reports Pre 08/29/2020 06:01 No growth at 4 days. Pre 08/28/2020 06:01 No growth at 3 days. Pre 08/27/2020 06:01 No growth at 2 days. Pre 08/26/2020 06:01 No growth at 1 day. Pre 08/25/2020 23:02 Culture less than 24 Hrs old == ACC: [id number] ORDER: Culture Blood DATE: 08/25/2020 05:01 SOURCE: Blood SITE: Reports Pre 08/29/2020 06:02 No growth at 4 days. Pre 08/28/2020 06:01 No growth at 3 days. Pre 08/27/2020 06:01 No growth at 2 days. Pre 08/26/2020 06:01 No growth at 1 day. Pre 08/25/2020 23:02 Culture less than 24 Hrs old == Radiology Results (Last 48 hours) [id number] -- 08/25/2020 05:53 CT Abdomen WO W [...] closely after discharge Electronically signed by Sivan, [facility] Conversion Tobacco Curer Cerner at 02/04/2023 1:55 PM CDT documented in this encounter Plan of Treatment Not on file documented as of this encounter Visit Diagnoses Not on filedocumented in this encounter Care Teams Technology Teacher Relationship Specialty Start Date End Date Jay Howell MD [address] [place] [phone] PCP - General Emergency Medicine 11/12/23 documented as of this encounter
--- OUTSIDE RECORDS SUMMARY | 2025-07-28 09:18 | XMS_ITS | Encounter Summary ---
Author Organization [employer] ([place], [place], [place], [place]) Address [address] [place] [address] Care Team Providers Care Mail List Librarian Name Role Phone Jay Howell MD Primary Care Provider [phone] Encounter Details Date Type Department Care Team (Late st Contact Info) Description 09/29/2020 Transcribed Document [facility] Family Medicine [address] [place] [address] ProviderJessie MD [address] [place] [address] Social History Tobacco Use Types Packs/Day Years Used Date Smoking Tobacco: Never Assessed Comments Unknown Sex and Gender Information Value Date Recorded Sex Assigned at Not on file Legal Sex Female 7:30 PM CDT Gender Identity Not on file Sexual Orientation Not on file documented as of this encounter Miscellaneous Notes * Cerner Conversion Note - Historical ProviderMD - 09/29/2020 5:14 PM BASKETBALL REFEREE Patient: SKYLER MONTOYA Age: 79 Years Sex: [...] present starting at the level of the COMMUNITY SERVICE OFFICER COORDINATOR. Non significant, non-flow restricting plaque noted at common femoral artery. 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 There is a significant (50-75%) stenosis of the distal COMMUNITY SERVICE OFFICER COORDINATOR. Non significant, non-flow restricting plaque noted at DPA. COMMUNITY SERVICE OFFICER COORDINATOR & DPA non compressible for FERNIE. TBI: Non compressible. LEFT: Abnormal arterial runoff disease present starting at the level of the COMMUNITY SERVICE OFFICER COORDINATOR. Non significant, non-flow restricting plaque noted at common femoral artery. There is a severe (>75%) stenosis of the distal COMMUNITY SERVICE OFFICER COORDINATOR. COMMUNITY SERVICE OFFICER COORDINATOR & DPA non compressible for FERNIE. TBI: Non compressible. documented in this encounter Plan of Treatment Not on file documented as of this encounter Visit Diagnoses Not on filedocumented in this encounter Care Teams Mail List Librarian Relationship Specialty Start Date End Date Jay Howell MD [address] [place] [phone] PCP - General Emergency Medicine 11/12/23 documented as of this encounter
--- OUTSIDE RECORDS SUMMARY | 2025-07-28 09:18 | XMS_ITS | Encounter Summary ---
Author Organization [employer] ([place], [place], [place], [place]) Address [address] [place] [address] Care Team Providers Care Hand Wrapper Operator Name Role Phone Jay Howell MD Primary Care Provider [phone] Encounter Details Date Type Department Care Team (Late st Contact Info) Description 12/20/2018 Transcribed Document [facility] Family Medicine [address] [place] [address] ProviderJessie MD [address] [place] [address] Social History Tobacco Use Types Packs/Day Years Used Date Smoking Tobacco: Never Assessed Comments Unknown Sex and Gender Information Value Date Recorded Sex Assigned at Not on file Legal Sex Female 7:30 PM CDT Gender Identity Not on file Sexual Orientation Not on file documented as of this encounter Miscellaneous Notes * Cerner Conversion Note - Historical ProviderMD - 12/20/2018 1:13 PM SAP BPC ARCHITECT Advance Directive Entered On: 12/20/2018 13:35 EST Performed On: 12/20/2018 13:13 EST by ARTHUR HONEYCUTT Advance Directive Patient has Advance Directive *Q : No, patient requests assist formulating Advance Directive Patient Given Information about AD : Yes Advance Directive Comment : Provided advance directive info. ARTHUR HONEYCUTT - 12/20/2018 13:35 EST Electronically signed by Sivan [facility] Conversion Mattress Filler Cerner at 02/04/2023 1:55 PM CDT documented in this encounter Plan of Treatment Not on file documented as of this encounter Visit Diagnoses Not on filedocumented in this encounter Care Teams Hand Wrapper Operator Relationship Specialty Start Date End Date Jay Howell MD [address] [place] [phone] PCP - General Emergency Medicine 11/12/23 documented as of this encounter
--- OUTSIDE RECORDS SUMMARY | 2025-07-28 09:18 | XMS_ITS | Encounter Summary ---
Author Organization [employer] ([place], [place], [place], [place]) Address [address] [place] [address] Care Team Providers Care Traffic Incident Management Manager Name Role Phone Jay Howell MD Primary Care Provider [phone] Encounter Details Date Type Department Care Team (Late st Contact Info) Description 12/20/2018 Transcribed Document [facility] [place] [address] [place] [address] ProviderJessie MD [address] [place] [address] Social History Tobacco Use Types Packs/Day Years Used Date Smoking Tobacco: Never Assessed Comments Unknown Sex and Gender Information Value Date Recorded Sex Assigned at Not on file Legal Sex Female 7:30 PM CDT Gender Identity Not on file Sexual Orientation Not on file documented as of this encounter Miscellaneous Notes * Cerner Conversion Note - Historical ProviderMD - 12/20/2018 7:39 PM STILL OPERATOR BATCH OR CONTINUOUS Admission History, Adult Entered On: 12/20/2018 19:41 [...] Info Preferred Name : ilsa Support Person/Patient Tar Roofer : Deanna Support Person/Pt Rep Name : Willard Contact Password : Marvin Support Person/Pt Rep Contact Information : [id number] Want Family/Rep/Phys Notified of Admit : No Emergency Contact #1 : na Emergency Contact #1 Phone Number : na Emergency Contact #1 Relationship : na Emergency Contact #2 : na Emergency Contact #2 Phone Number : na Emergency Contact #2 Relationship : na Primary Language : Urdu Preferred Communication Mode : Verbal Communication Barrier [...] Scale Risk Level : 25-45 Medium Risk [place] Fall Interventions : Adequate lighting, Assistive devices [...] Source : Stated Height Entry Format : [place] Height, Feet : 5 ft(Converted to: 152 cm, 60 Inch) Height, Inches : 3 Inch(Converted to: 0 ft 3 Inch, 7.62 cm) Clinical Height : 160.02 cm Weight Source : Standing scale Weight Entry Format : [place] Clinical Dosing Weight : 71.82 kg Weight, Pounds : 158 lb Body Surface Area (BSA) : 1.75 m2 Body Mass Index : 28 kg/m2 (HI) [place] Body Weight : 52 kg An Ocampo [...] RN - 12/20/2018 19:39 EST Spiritual/Cultural Needs Evangelical Preference : Moravian Spiritual/Cultural Needs Comment : joseph after surgery or major surgery An Ocampo RN - 12/20/2018 19:39 EST Valuables and Belongings Valuables and Belongings : Clothing, Personal devices Clothing : Common streetwear Clothing Disposition : Bedside Personal Device Disposition : Bedside Personal Devices : Dentures, partial plate An Ocampo RN - 12/20/2018 19:39 EST Electronically signed by [facility], [facility] Conversion Aquarium Tank Attendant Cerner at 02/04/2023 2:16 PM CDT documented in this encounter Plan of Treatment Not on file documented as of this encounter Visit Diagnoses Not on filedocumented in this encounter Care Teams Traffic Incident Management Manager Relationship Specialty Start Date End Date Jay Howell MD [address] [place] [phone] PCP - General Emergency Medicine 11/12/23 documented as of this encounter
--- OUTSIDE RECORDS SUMMARY | 2025-07-28 09:18 | XMS_ITS | Encounter Summary ---
Author Organization [employer] ([place], [place], [place], [place]) Address [address] [place] [address] Care Team Providers Care Psychiatric Orderly Name Role Phone Jay Howell MD Primary Care Provider [phone] Encounter Details Date Type Department Care Team (Late st Contact Info) Description 12/12/2018 Transcribed Document [facility] Family Medicine [address] [place] [address] ProviderJessie MD [address] [place] [address] Social History Tobacco Use Types Packs/Day Years Used Date Smoking Tobacco: Never Assessed Comments Unknown Sex and Gender Information Value Date Recorded Sex Assigned at Not on file Legal Sex Female 7:30 PM CDT Gender Identity Not on file Sexual Orientation Not on file documented as of this encounter Miscellaneous Notes * Cerner Conversion Note - Jessie Yuen MD - 12/12/2018 8:58 PM ADJUNCT PROFESSOR ED Assessment Entered On: 12/12/2018 21:53 EST [...] Communication Barrier : None Primary Language : Tunisian Additional Emergency Contact #1 : Johnny Montoya Additional Contact #1 Phone Number : [phone] Additional Contact #1 Relationship : spouse Any [...] (Last Updated: 08/06/2014 13:58:58 EDT by DAVIDA IASAC RN) Home/Environment: Lives with Spouse. Living situation: Home/Independent. (Last Updated: 12/14/2014 22:42:39 EST by BIPIN HOFF RN) Cardiovascular ASMT, ED Cardiovascular Assessment WDL : WDL with exceptions Cardiovascular Symptoms : Chest discomfort at rest Heart Rhythm : Regular Nail Bed Color : [place] Chest Pain : Yes Neck Vein Distention [...] 12/12/2018 21:49 EST Electronically signed by Interface, [facility] Conversion Cyber Engineer Cerner at 02/04/2023 2:13 PM CDT documented in this encounter Plan of Treatment Not on file documented as of this encounter Visit Diagnoses Not on filedocumented in this encounter Care Teams Psychiatric Orderly Relationship Specialty Start Date End Date Jay Howell MD [address] [place] [phone] PCP - General Emergency Medicine 11/12/23 documented as of this encounter
--- OUTSIDE RECORDS SUMMARY | 2025-07-28 09:18 | XMS_ITS | Encounter Summary ---
Author Organization [employer] ([place], [place], [place], [place]) Address [address] [place] [address] Care Team Providers Care Applied Mathematician Name Role Phone Jay Howell MD Primary Care Provider [phone] Encounter Details Date Type Department Care Team (Late st Contact Info) Description 08/31/2020 Transcribed Document [facility] [place] [address] [place] [address] ProviderJessie MD [address] [place] [address] Social History Tobacco Use Types Packs/Day Years Used Date Smoking Tobacco: Never Assessed Comments Unknown Sex and Gender Information Value Date Recorded Sex Assigned at Not on file Legal Sex Female 7:30 PM CDT Gender Identity Not on file Sexual Orientation Not on file documented as of this encounter Miscellaneous Notes * Cerner Conversion Note - Jessie Yuen MD - 08/31/2020 9:43 AM HAND PRESSER Patient: SKYLER MONTOYA Age: 79 years Sex: [...] mg, 6 mL, 112 mL/Hr, IV Piggyback, [id number] DuoNeb 0.5 mg-2.5 mg/3 mL inhalation solution: [...] Tab, Oral, Daily, 30 Tab, 0 Refill(s) [place] 7.5 mg-325 mg oral tablet: 1 Tab, [...] mL 300 mg 6 mL, IV Piggyback, [id number] dorzolamide 2% ophth soln 10 mL 1 [...] Confirmed Coronary artery disease / SNOMED CT 3698550618 / Confirmed Stented coronary artery / SNOMED CT 2152025684 / Confirmed High blood pressure / SNOMED CT 97864516 / Confirmed Hyperlipidemia / SNOMED CT 90271600 / Confirmed COPD / SNOMED CT 59217183 / Confirmed GERD - Gastro-esophageal reflux disease / SNOMED CT 0408225039 / Confirmed 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 / Confirmed Arthritis / SNOMED CT 2357516 / Confirmed Diabetes mellitus / SNOMED CT 839874482 / Confirmed Emphysema / SNOMED CT 934832566 / Confirmed Apnea, sleep / SNOMED CT 288153635 / Confirmed Hx of pulmonary embolus / SNOMED CT 921598990 / Confirmed Chronic anticoagulation / SNOMED CT 565072919 / Confirmed Atrial fibrillation with RVR / SNOMED CT 6534999894 / Confirmed Chest pain / SNOMED CT 96434215 / Complaint of History of obstructive sleep apnea / IMO 43453466 / Confirmed Resolved: UTI - Urinary tract infection / SNOMED CT 6790415871 Canceled: History of obstructive sleep apnea / IMO 10421665, Active Problems (20) Apnea, sleep Arthritis Atrial [...] based on INR Electronically signed by Sivan [facility] Conversion Correspondence Review Clerk Cerner at 02/04/2023 2:09 PM CDT documented in this encounter Plan of Treatment Not on file documented as of this encounter Visit Diagnoses Not on filedocumented in this encounter Care Teams Applied Mathematician Relationship Specialty Start Date End Date Jay Howell MD [address] [place] [phone] PCP - General Emergency Medicine 11/12/23 documented as of this encounter
--- OUTSIDE RECORDS SUMMARY | 2025-07-28 09:18 | XMS_ITS | Encounter Summary ---
Author Organization [employer] ([place], [place], [place], [place]) Address [address] [place] [address] Care Team Providers Care Printer Small Print Shop Name Role Phone Jay Howell MD Primary Care Provider [phone] Encounter Details Date Type Department Care Team (Late st Contact Info) Description 12/20/2018 Transcribed Document [facility] [place] [address] [place] [address] ProviderJessie MD [address] [place] [address] Social History Tobacco Use Types Packs/Day Years Used Date Smoking Tobacco: Never Assessed Comments Unknown Sex and Gender Information Value Date Recorded Sex Assigned at Not on file Legal Sex Female 7:30 PM CDT Gender Identity Not on file Sexual Orientation Not on file documented as of this encounter Miscellaneous Notes * Cerner Conversion Note - Historical ProviderMD - 12/20/2018 12:01 PM SHAKE PACKER Care Management Assessment/Plan Entered On: 12/21/2018 9:37 [...] filedocumented in this encounter Care Teams Printer Small Print Shop Relationship Specialty Start Date End Date Jay Howell MD [address] [place] [phone] PCP - General Emergency Medicine 11/12/23 documented as of this encounter
--- OUTSIDE RECORDS SUMMARY | 2025-07-28 09:18 | XMS_ITS | Encounter Summary ---
Author Organization [employer] ([place], [place], [place], [place]) Address [address] [place] [address] Care Team Providers Care Veneer Press Operator Name Role Phone Jay Howell MD Primary Care Provider [phone] Encounter Details Date Type Department Care Team (Late st Contact Info) Description 08/29/2020 Transcribed Document [facility] [place] Medicine [address] [place] [address] ProviderJessie MD [address] [place] [address] Social History Tobacco Use Types Packs/Day Years Used Date Smoking Tobacco: Never Assessed Comments Unknown Sex and Gender Information Value Date Recorded Sex Assigned at Not on file Legal Sex Female 7:30 PM CDT Gender Identity Not on file Sexual Orientation Not on file documented as of this encounter Miscellaneous Notes * Cerner Conversion Note - Jessie ProviderMD - 08/29/2020 2:00 AM SUMMER COUNSELOR Capacity Manager Details Entered On: 08/29/2020 6:08 EST Performed [...] 6:07 EST Electronically signed by Sivan [facility] Conversion Nuclear Radiation Engineer Cerner at 02/04/2023 1:58 PM CDT documented in this encounter Plan of Treatment Not on file documented as of this encounter Visit Diagnoses Not on filedocumented in this encounter Care Teams Veneer Press Operator Relationship Specialty Start Date End Date Jay Howell MD [address] [place] [phone] PCP - General Emergency Medicine 11/12/23 documented as of this encounter
--- OUTSIDE RECORDS SUMMARY | 2025-07-28 09:18 | XMS_ITS | Encounter Summary ---
Author Organization [employer] ([place], [place], [place], [place]) Address [address] [place] [address] Care Team Providers Care Bath Tester Name Role Phone Jay Howell MD Primary Care Provider [phone] Encounter Details Date Type Department Care Team (Late st Contact Info) Description 09/01/2020 Transcribed Document [facility] [place] [address] [place] [address] ProviderJessie MD [address] [place] [address] Social History Tobacco Use Types [...] Jessie Yuen MD - 09/01/2020 2:22 PM CENTRAL SERVICE TECH [facility] [place] [id number] SKYLER MONTOYA :1940 Visit Time:08/25/2020 Your Visit [...] next 5 days. NEW RX Provided. STOP [place] 7.5/325 mg tablets --- NEW RX Provided for 5/325 mg tablets --- Take one or the other - Do not take both. Discharge Activity: Discharge Activity: No heavy lifting over 10 lbs, Avoid Strenuous Activity Until: for 1 week Follow-Up Appointments Follow Up with KAELA VERDE When 09/29/2020 12:30 PM EST Comments F/u w/ FERNIE Where: [place] [address] [place] [phone]- Business (1) Follow Up with KAELA VERDE When 09/08/2020 12:45 PM EST Comments F/u [facility] with Irina Troy PA-C Where: [facility] [address] [place] [address]- Business (1) Follow Up with TARA CHEN When 09/05/2020 12:20 PM EST Comments needs INR check///We have held your Aspirin per vascular surgeon, Dr. Verde///Appointment has been made Where: [address] [address]- Business (1) Follow Up with KAVITHA HIDALGO When 09/03/2020 02:30 PM EST Comments Appointment has been made Where: [address] [place] [address]- Business (1) Medications What How Much When Instructions Next Dose amoxicillin-clavulanate (amoxicillin-clavulanate 875 mg-125 mg oral tablet) 1 Tablet(s) Oral Every 12 hours Duration: 3 Day(s) Pickup at [facility] Tuesday09/01/2020 9:00 PM clopidogrel (Plavix 75 mg oral tablet) 1 Tablet(s) Oral Every Day Pickup at [facility] Tuesday09/02/2020 9:00 AM doxycycline (Vibramycin 100 mg oral capsule) 1 Capsule(s) Oral Two Times A Day Duration: 3 Day(s) Pickup at [facility] Tuesday09/01/2020 9:00 PM enoxaparin (Lovenox 80 mg/ 0.8 mL injectable solution) 70 Milligram(s) SubCutaneous Every 12 hours Duration: 5 Day(s) Pickup at [facility] Tuesday09/01/2020 9:00 PM lactobacillus acidophilus (lactobacillus acidophilus oral tablet) 2 Tablet(s) Oral Every Day Duration: 28 Day(s) Pickup at [facility] Tuesday09/02/2020 9:00 AM terbinafine (terbinafine 250 mg oral tablet) 1 Tablet(s) Oral Every Day Duration: 6 weeks Pickup at [facility] [place] 09/02/2020 9:00 AM ALPRAZolam (Xanax 0.5 mg oral tablet) 1 Tablet(s) Oral At Bedtime as needed for for anxiety/sleep acetaminophen-hydrocodone ([place] 5 mg-325 mg oral tablet) 1 Tablet(s) Oral Every 4 Hours as needed for for pain NEW DOSE. New RX Provided. amLODIPine (Norvasc 10 mg oral tablet) 1 Tablet(s) Oral Every Day Pickup at [facility] Tuesday09/02/2020 9:00 AM atorvastatin (atorvastatin 80 mg oral tablet) 1 Tablet(s) Oral At Bedtime Pickup at [facility] Tuesday09/01/2020 9:00 PM carvedilol (carvedilol 6.25 mg oral tablet) 1 Tablet(s) Oral Three Times A Day Tuesday09/01/2020 4:00 PM dorzolamide ophthalmic (dorzolamide 2% ophthalmic solution) 1 Drop(s) Eye Right Two Times A Day Tuesday09/01/2020 9:00 PM hydrALAZINE (hydrALAZINE 100 mg oral tablet) 1 Tablet(s) Oral Two Times A Day NEW DOSE Pickup at [facility] Tuesday09/01/2020 9:00 PM warfarin (Coumadin 3 mg oral tablet) 1 Tablet(s) Oral Every Day Duration: 5 Day(s) NEW DOSE x the next 5 days. INR will be checked in 2 days. Pickup at [facility] Tuesday09/02/2020 9:00 AM losartan (losartan 100 [...] A Day Tuesday09/01/2020 9:00 PM Pharmacy Information [facility]: [address] [facility] [address] [place], [place] [id number] [phone] Take your medications faithfully. Do NOT skip [...] bag. ??? Soap and water, or hand hospitality services manager. ??? Wound cleanser or salt-water solution (saline). [...] and water are not available, use hand hospitality services manager. 3. Set up a clean station for [...] and water are not available, use hand hospitality services manager. Clean your wound ??? Wear gloves, protective [...] and water are not available, use hand hospitality services manager. Apply new dressing ??? Wear gloves, protective [...] and water are not available, use hand hospitality services manager. 8. Turn the pump back on. The sponge dressing should collapse. Do not change the settings on the machine without talking to a health care provider. 9. Replace the container in the pump that collects fluid if it is full. Replace the container per the rib puller's instructions or at least once a week, [...] clamps are open. ??? Do not use oxkv-gtf-dnlsomk medicated or antiseptic creams, sprays, liquids, or [...] 12/25/2012 Document Revised: 01/25/2020 Document Reviewed: 12/21/2019 [employer] Patient Education ?? 2020 [employer] Cellulitis, Adult Cellulitis is a skin [...] these instructions at home: Medicines ??? Take ndmn-dcx-fxmcjcg and prescription medicines only as told by [...] 03/21/2009 Document Revised: 02/22/2019 Document Reviewed: 02/22/2019 [employer] Patient Education ?? 2020 [employer] What You Need to Know About [...] other medicines or supplements? Many prescription and pvmf-wbt-dlykhbn medicines can interfere with warfarin. Talk with your health care provider or your pharmacist before starting or stopping any new medicines. This includes kikn-ssp-rykvrzl vitamins, dietary supplements, herbal medicines, and pain medicines. Your warfarin dosage may need to be adjusted. ??? Some common cris-ayi-tuupzfq medicines that may increase the risk of [...] you work with a diet and nutrition teacher (dietitian). ??? Vitamin K decreases the effect [...] cooked. ??? Collards, raw or cooked. ??? American chard, raw or cooked. ??? Mustard greens, raw or cooked. ??? Turnip greens, raw or cooked. ??? Parsley, raw. ??? Broccoli, cooked. ??? Noodles, eggs, and spinach, enriched. ??? [place] sprouts, raw or cooked. ??? Beet greens, [...] diet. ??? You start or stop any fpcq-iqd-jdinrca medicine, prescription medicine, or dietary supplement. ??? [...] 10/03/2006 Document Revised: 05/16/2018 Document Reviewed: 12/29/2016 [employer] Patient Education ?? 2020 [employer] Hematoma A hematoma is a collection of [...] health care provider. General instructions ??? Take cfce-ebp-xjfiaxs and prescription medicines only as told by [...] Assistance with quitting is available by contacting 4-682-BDGF-NOW. This is a free resource providing counseling, support, and referral. Or you may contact your personal physician. [employer] Suicide Prevention Lifeline: The National Suicide Prevention [...] range between ( 0.0 and 7.0 ) Maury #: 0.64 K/uL -- Normal range between ( 0.16 and 1.00 ) Eos #: 0.11 x10(3)/uL -- Normal range between ( 0.00 and 0.80 ) Maury %: 10.7 % -- Normal range between [...] was given the opportunity to ask questions. Patient/Environmental Projects Advisor Name: Patient/Environmental Projects Advisor Signature: Relationship to Patient: Clinician/Hospital Environmental Projects Advisor Signature: Date: Electronically signed by Sivan, [facility] Conversion Legal Instruments Examiner Cerner at 02/04/2023 2:00 PM CDT documented in this encounter Plan of Treatment Not on file documented as of this encounter Visit Diagnoses Not on filedocumented in this encounter Care Teams Bath Tester Relationship Specialty Start Date End Date Jay Howell MD [address] [place] [phone] PCP - General Emergency Medicine 11/12/23 documented as of this encounter
--- OUTSIDE RECORDS SUMMARY | 2025-07-28 09:18 | XMS_ITS | Encounter Summary ---
Author Organization [employer] ([place], [place], [place], [place]) Address [address] [place] [address] Care Team Providers Care Needle Loom Operator Helper Name Role Phone Jay Howell MD Primary Care Provider [phone] Encounter Details Date Type Department Care Team (Late st Contact Info) Description 09/04/2020 Transcribed Document [facility] [place] [address] [place] [address] ProviderJessie MD [address] [place] [address] Social History Tobacco Use Types Packs/Day Years Used Date Smoking Tobacco: Never Assessed Comments Unknown Sex and Gender Information Value Date Recorded Sex Assigned at Not on file Legal Sex Female 7:30 PM CDT Gender Identity Not on file Sexual Orientation Not on file documented as of this encounter Miscellaneous Notes * Cerner Conversion Note - Jessie Yuen MD - 09/04/2020 2:10 AM BOTTOMING ROOM INSPECTOR ED Discharge Entered On: 09/04/2020 4:14 EST [...] 09/04/2020 4:14 EST Electronically signed by Sivan, [facility] Conversion Principal Architectural Firm Cerner at 02/04/2023 2:10 PM CDT documented in this encounter Plan of Treatment Not on file documented as of this encounter Visit Diagnoses Not on filedocumented in this encounter Care Teams Needle Loom Operator Helper Relationship Specialty Start Date End Date Jay Howell MD [address] [place] [phone] PCP - General Emergency Medicine 11/12/23 documented as of this encounter
--- OUTSIDE RECORDS SUMMARY | 2025-07-28 09:18 | XMS_ITS | Encounter Summary ---
Author Organization [employer] ([place], [place], [place], [place]) Address [address] [place] [address] Care Team Providers Care Foreign Broadcast Specialist Name Role Phone Jay Howell MD Primary Care Provider [phone] Encounter Details Date Type Department Care Team (Late st Contact Info) Description 12/12/2018 Transcribed Document [facility] [place] [address] [place] [address] ProviderJessie MD [address] [place] [address] Social History Tobacco Use Types Packs/Day Years Used Date Smoking Tobacco: Never Assessed Comments Unknown Sex and Gender Information Value Date Recorded Sex Assigned at Not on file Legal Sex Female 7:30 PM CDT Gender Identity Not on file Sexual Orientation Not on file documented as of this encounter Miscellaneous Notes * Cerner Conversion Note - Jessie ProviderMD - 12/12/2018 10:39 PM FORCER MAKER ED Discharge Entered On: 12/12/2018 22:40 EST [...] - 12/12/2018 22:39 EST Electronically signed by [facility] Conversion Application Security Specialist Cerner at 02/04/2023 2:15 PM CDT documented in this encounter Plan of Treatment Not on file documented as of this encounter Visit Diagnoses Not on filedocumented in this encounter Care Teams Foreign Broadcast Specialist Relationship Specialty Start Date End Date Jay Howell MD [address] [place] [phone] PCP - General Emergency Medicine 11/12/23 documented as of this encounter
--- OUTSIDE RECORDS SUMMARY | 2025-07-28 09:18 | XMS_ITS | Encounter Summary ---
Author Organization [employer] ([place], [place], [place], [place]) Address [address] [place] [address] Care Team Providers Care Yardmaster Name Role Phone Jay Howell MD Primary Care Provider [phone] Encounter Details Date Type Department Care Team (Late st Contact Info) Description 09/08/2020 Transcribed Document [facility] [place] [address] ProviderJessie MD [address] [place] [address] Social History Tobacco Use Types Packs/Day Years Used Date Smoking Tobacco: Never Assessed Comments Unknown Sex and Gender Information Value Date Recorded Sex Assigned at Not on file Legal Sex Female 7:30 PM CDT Gender Identity Not on file Sexual Orientation Not on file documented as of this encounter Miscellaneous Notes * Cerner Conversion Note - Jessie Yuen MD - 09/08/2020 5:27 PM SHAKE OUT WORKER Patient: SKYLER MONTOYA Age: 79 Years [...] on filedocumented in this encounter Care Teams Yardmaster Relationship Specialty Start Date End Date Jay Howell MD [address] [place] [phone] PCP - General Emergency Medicine 11/12/23 documented as of this encounter
--- OUTSIDE RECORDS SUMMARY | 2025-07-28 09:18 | XMS_ITS | Encounter Summary ---
Author Organization [employer] ([place], [place], [place], [place]) Address [address] [place] [address] Care Team Providers Care Principal Quality Engineer Name Role Phone Jay Howell MD Primary Care Provider [phone] Encounter Details Date Type Department Care Team (Late st Contact Info) Description 12/21/2018 Transcribed Document [facility] [place] Family [place] [address] ProviderJessie MD [address] [place] [phone] Social History Tobacco Use Types Packs/Day Years Used Date Smoking Tobacco: Never Assessed Comments Unknown Sex and Gender Information Value Date Recorded Sex Assigned at Not on file Legal Sex Female 7:30 PM CDT Gender Identity Not on file Sexual Orientation Not on file documented as of this encounter Miscellaneous Notes * Cerner Conversion Note - Jessie Yuen MD - 12/21/2018 11:48 AM WOOL MIXER [address] , [place], [place] [id number] Patient Copy Patient Information: Name: SKYLER MONTOYA Current Date: 12/21/2018 11:48:11 : 1940 Patient Address: [address] [place] [id number] Patient Attending Physician: FREDY YAÑEZ MD-CAR Primary Care Provider: TARA CHEN (REF), -MED Primary Care Provider Discharge Diagnosis: CAD (coronary artery disease); DM (diabetes mellitus); Exertional angina; HLD (hyperlipidemia); HTN (hypertension); Hx of CABG; DANTE (obstructive sleep apnea); Paroxysmal A-fib Weight on Admission: 158 lb, 0 oz Comment: Follow-up Instructions: With: Address: When: [facility] [address], [place] [address] Business (1) In 1 month 01/21/2019 With: Address: When: [facility] [address], [address] [place], [place] [id number] Business (1) Within 2 to 5 weeks [...] What foods can I eat? GrainsBreads, including Uzbek, white, jie, wheat, raisin, rye, oatmeal, and Azeri. Tortillas that are neither fried nor made with lard or trans fat. Low-fat rolls, including hotdog and hamburger buns and Czech muffins. Biscuits. Muffins. Waffles. Pancakes. Light popcorn. Whole-grain cereals. Flatbread. [place] toast. Pretzels. Breadsticks. Rusks. Low-fat snacks. Low-fat [...] cottage cheese. Whole-milk cheeses, including blue (fredo), [place], Brie, Nate, English, Havarti, Lebanese, cheddar, Camembert, and [place]. Whole or 2% milk that is liquid, [...] that has suet, meat fat, or shortening. [place] butter, hydrogenated oils, palm oil, coconut oil, [...] can cause a heart attack (myocardial infarction, [place]). CAD is a leading cause of for [...] 12/25/2012 Document Revised: 03/10/2017 Document Reviewed: 02/04/2015 [employer] Interactive Patient Education ? 2017 [employer] Groin Site Care Refer to this [...] Document Reviewed: 11/05/2011 ExitCare? Patient Information ?2013 [employer]. Angiogram An angiogram, also called angiography, is [...] including vitamins, herbs, eye drops, creams, and hssr-ovg-odxvmud medicines. ??? Any problems you or family [...] 03/06/2014 Elsevier Interactive Patient Education ? 2017 [employer] Medication Leaflets: valsartan (elin LILY foster) [...] valsartan; ?? if you are on a ocy-xbmf-dcau; ?? if you are dehydrated; or ?? [...] may report side effects to FDA at 9-423-KOT-3917. What other drugs will affect valsartan? Tell [...] may interact with valsartan, including prescription and ojsf-ktk-nisfxlt medicines, vitamins, and herbal products. Not all [...] to ensure that the information provided by [employer] ('[employer]') is accurate, up-to-date, and complete, but no guarantee is made to that effect. Drug information contained herein may be time sensitive. [employer] information has been compiled for use by healthcare practitioners and consumers in the [place] and therefore [employer] does not warrant that uses outside of the [place] are appropriate, unless specifically indicated otherwise. [employer]'s drug information does not endorse drugs, diagnose patients or recommend therapy. [employer]'s drug information is an informational resource designed [...] effective or appropriate for any given patient. [facility] does not assume any responsibility for any aspect of healthcare administered with the aid of information [facility] provides. The information contained herein is not intended to cover all possible uses, directions, precautions, warnings, drug interactions, allergic reactions, or adverse effects. If you have questions about the drugs you are taking, check with your doctor, nurse or pharmacist. Copyright 6788-4369 [facility] [employer] Your [employer]. Version: 16.05. Revision Date: 09/08/2016. hydralazine (bob [...] may report side effects to FDA at 0-683-XGN-0713. What other drugs will affect hydralazine? Tell your doctor about all your current medicines and any you start or stop using, especially: ? diazoxide (an injectable blood pressure medication); or ?? an MAO inhibitor--isocarboxazid, linezolid, methylene blue injection, phenelzine, rasagiline, selegiline, tranylcypromine, and others. This list is not complete. Other drugs may interact with hydralazine, including prescription and cvjv-scd-xfkbebv medicines, vitamins, and herbal products. Not all [...] to ensure that the information provided by [employer]') is accurate, up-to-date, and complete, but no guarantee is made to that effect. Drug information contained herein may be time sensitive. [employer] information has been compiled for use by healthcare practitioners and consumers in the [place] and therefore [employer] does not warrant that uses outside of the [place] are appropriate, unless specifically indicated otherwise. [employer]'s drug information does not endorse drugs, diagnose patients or recommend therapy. [employer] drug information is an informational resource designed [...] effective or appropriate for any given patient. [employer] does not assume any responsibility for any aspect of healthcare administered with the aid of information [employer] provides. The information contained herein is not intended to cover all possible uses, directions, precautions, warnings, drug interactions, allergic reactions, or adverse effects. If you have questions about the drugs you are taking, check with your doctor, nurse or pharmacist. Copyright 0037-3638 [employer] Version: 5.01. Revision Date: 10/26/2017. amlodipine (am [...] may report side effects to FDA at 1-524-NPH-4537. What other drugs will affect amlodipine? Tell your doctor about all your current medicines and any you start or stop using, especially: ? nitroglycerin; ?? simvastatin (Zocor, Simcor, Vytorin); or ?? any other heart or blood pressure medications. This list is not complete. Other drugs may interact with amlodipine, including prescription and jpua-cvu-xlwygqn medicines, vitamins, and herbal products. Not all [...] to ensure that the information provided by [employer] ('[employer]') is accurate, up-to-date, and complete, but no guarantee is made to that effect. Drug information contained herein may be time sensitive. [employer] information has been compiled for use by healthcare practitioners and consumers in the [place] and therefore [employer] does not warrant that uses outside of the [place] are appropriate, unless specifically indicated otherwise. [employer] drug information does not endorse drugs, diagnose patients or recommend therapy. [employer] drug information is an informational resource designed [...] effective or appropriate for any given patient. [employer] does not assume any responsibility for any aspect of healthcare administered with the aid of information [employer] provides. The information contained herein is not intended to cover all possible uses, directions, precautions, warnings, drug interactions, allergic reactions, or adverse effects. If you have questions about the drugs you are taking, check with your doctor, nurse or pharmacist. Copyright 9022-3384 [employer]. Version: 14.. Revision Date: 01/24/2017. clopidogrel (kloe [...] may report side effects to FDA at 1-848-VHA-2206. What other drugs will affect clopidogrel? Certain other medicines may increase your risk of bleeding, including aspirin. Avoid taking aspirin unless your doctor tells you to. Tell your doctor about all your other medicines, especially: ? any other medicines to treat or prevent blood clots; ?? a stomach acid librarian head such as omeprazole, Nexium, or Prilosec; ?? an antidepressant; ?? an opioid medication; ?? a blood thinner--warfarin, Coumadin, Jantoven; or ?? NSAIDs (nonsteroidal anti-inflammatory drugs)--ibuprofen (Advil, Motrin), naproxen (Aleve), celecoxib, diclofenac, indomethacin, meloxicam, and others. This list is not complete. Other drugs may affect clopidogrel, including prescription and enif-ujj-akeecxn medicines, vitamins, and herbal products. Not all [...] to ensure that the information provided by [employer] ('[employer]') is accurate, up-to-date, and complete, but no guarantee is made to that effect. Drug information contained herein may be time sensitive. [employer] information has been compiled for use by healthcare practitioners and consumers in the [place] and therefore [employer] does not warrant that uses outside of the [place] are appropriate, unless specifically indicated otherwise. [employer]'s drug information does not endorse drugs, diagnose patients or recommend therapy. [employer] drug information is an informational resource designed [...] effective or appropriate for any given patient. [employer] does not assume any responsibility for any aspect of healthcare administered with the aid of information [employer] provides. The information contained herein is not intended to cover all possible uses, directions, precautions, warnings, drug interactions, allergic reactions, or adverse effects. If you have questions about the drugs you are taking, check with your doctor, nurse or pharmacist. Copyright 8502-0694 [employer]. Version: 15.01. Revision Date: 08/07/2018. ranolazine (ra [...] following drugs: ? clarithromycin; ?? nefazodone; ?? [place]'s wort; ?? antifungal medicine--itraconazole, ketoconazole; ?? HIV [...] may report side effects to FDA at 7-414-QKF-5682. What other drugs will affect ranolazine? Many [...] interact with ranolazine. This includes prescription and gyfj-rva-mzgqbtr medicines, vitamins, and herbal products. Give a [...] to ensure that the information provided by [employer] ('[employer]') is accurate, up-to-date, and complete, but no guarantee is made to that effect. Drug information contained herein may be time sensitive. [employer] information has been compiled for use by healthcare practitioners and consumers in the [place] and therefore [employer] does not warrant that uses outside of the [place] are appropriate, unless specifically indicated otherwise. [employer]'s drug information does not endorse drugs, diagnose patients or recommend therapy. [employer] drug information is an informational resource designed [...] effective or appropriate for any given patient. [employer] does not assume any responsibility for any aspect of healthcare administered with the aid of information [employer] provides. The information contained herein is not intended to cover all possible uses, directions, precautions, warnings, drug interactions, allergic reactions, or adverse effects. If you have questions about the drugs you are taking, check with your doctor, nurse or pharmacist. Copyright 2048-3676 [employer]. Version: 11.. Revision Date: 12/04/2015. CIGARETTE SMOKING: The facts are clear, cigarette smoking will shorten your life. Smoking can cause many illnesses along the way. As a healthcare provider, we recommend that you stop smoking. Assistance with quitting is available by contacting 0-782-MLGK-NOW. This is a free resource providing counseling, [...] Be sure to sign up for the [employer] patient portal, which gives you 09/05 access to your medical information ??? including these discharge instructions ??? using your computer, smartphone, or tablet. Just go to [employer] to get started. Questions? Call . [facility] would like to thank you for allowing us to assist you with your healthcare needs. MICHELE Skaggs JUDY D, (or medical detail representative) have received the above patient education materials/instructions and have verbalized understanding: Patient Signature _ Date/Time Patient Paint Maker Signature (if needed) Date/Time Clinician/Hospital Paint Maker Signature (if needed) Date/Time documented in this encounter Plan of Treatment Not on file documented as of this encounter Visit Diagnoses Not on filedocumented in this encounter Care Teams Principal Quality Engineer Relationship Specialty Start Date End Date Jay Howell MD [address] [place] [phone] PCP - General Emergency Medicine 11/12/23 documented as of this encounter
--- OUTSIDE RECORDS SUMMARY | 2025-07-28 09:18 | XMS_ITS | Encounter Summary ---
Author Organization [employer] ([place], [place], [place], [place]) Address [address] [place] [address] Care Team Providers Care Town Justice Name Role Phone Jay Howell MD Primary Care Provider [phone] Encounter Details Date Type Department Care Team (Late st Contact Info) Description 08/29/2020 Transcribed Document [facility] [place] Family Medicine [address] [place] [address] ProviderJessie MD [address] [place] [address] Social History Tobacco Use Types Packs/Day Years Used Date Smoking Tobacco: Never Assessed Comments Unknown Sex and Gender Information Value Date Recorded Sex Assigned at Not on file Legal Sex Female 7:30 PM CDT Gender Identity Not on file Sexual Orientation Not on file documented as of this encounter Miscellaneous Notes * Cerner Conversion Note - Jessie Yuen MD - 08/29/2020 2:41 PM TOLL LINEMAN On Going Discharge Planning Entered On: 08/29/2020 14:44 EST Performed On: 08/29/2020 14:41 EST by KAVITA PELLETIER RN-Buildings And Grounds SuperintendentApplications Chemist Progress Note Discharge Arrangements : Patient Post-Acute [...] Meeting Medical Necessity : Yes KAVITA PELLETIER RN-Buildings And Grounds Superintendent - 08/29/2020 14:41 EST Narrative Progress Note Narrative Progress Note : No DC today--INR-1.5. Hep gtt started to bridge Coumadin. NPWT for home obtained from [employer] and has been delivered to pt's room. [...] will obtain prior to dc. List of YOUTUBER's for [place] given to pt. She will choose and inform CM. Coumadin restarted today. CM will continue to follow. KAVITA PELLETIER RN-Buildings And Grounds Superintendent - 08/28/20 15:37:20 Pt is s/p LLE [...] past after her SIMONA and went to [facility] prior to home with HH. She is agreeable to look at list of YOUTUBER to make an informed decision based on quality and resource use information. Cx's are pending to determine need for IV abx at home. Likely dc in a few days. CM will continue to follow. KAVITA PELLETIER RN-Buildings And Grounds Superintendent - 08/27/20 15:14:36 KAVITA PELLETIER RN-Buildings And Grounds Superintendent - 08/29/2020 14:41 EST Electronically signed by [facility] Conversion Linux Unix Administrator Cerner at 02/04/2023 2:06 PM CDT documented in this encounter Plan of Treatment Not on file documented as of this encounter Visit Diagnoses Not on filedocumented in this encounter Care Teams Town Justice Relationship Specialty Start Date End Date Jay Howell MD [address] [place] [phone] PCP - General Emergency Medicine 11/12/23 documented as of this encounter
--- OUTSIDE RECORDS SUMMARY | 2025-07-28 09:18 | XMS_ITS | Encounter Summary ---
Author Organization [employer] ([place], [place], [place], [place]) Address [address] [place] [address] Care Team Providers Care Licensing Officer Name Role Phone Jay Howell MD Primary Care Provider [phone] Encounter Details Date Type Department Care Team (Late st Contact Info) Description 08/29/2020 Transcribed Document [facility] [place] [address] ProviderJesise MD [address] [place] [address] Social History Tobacco Use Types Packs/Day Years Used Date Smoking Tobacco: Never Assessed Comments Unknown Sex and Gender Information Value Date Recorded Sex Assigned at Not on file Legal Sex Female 7:30 PM CDT Gender Identity Not on file Sexual Orientation Not on file documented as of this encounter Miscellaneous Notes * Cerner Conversion Note - Jessie Yuen MD - 08/29/2020 2:44 PM PRINTING ROLLER POLISHER Final Discharge Planning Entered On: 08/29/2020 14:44 EST Performed On: 08/29/2020 14:44 EST by KAVITA PELLETIER RN-Concrete Mixer Final Discharge Planning Discharge Arrangements : Patient Post-Acute Information Patient Name: SKYLER MONTOYA Gender: Female : [birth year] Age: 79 Years No Post-Acute Placement(s) Listed No Post-Acute Service(s) Listed No [place] Referral(s) Listed Patient Offered Choice/Affiliations Explained : Yes Important Medicare Message Reviewed With : Patient Important Medicare Message Reviewed D/T : 08/29/2020 9:00 EST KAVITA PELLETIER RN-Concrete Mixer - 08/29/2020 14:44 EST Electronically signed by Interface, [facility] Conversion Certified Ethical Hacker Cerner at 02/04/2023 1:55 PM CDT documented in this encounter Plan of Treatment Not on file documented as of this encounter Visit Diagnoses Not on filedocumented in this encounter Care Teams Licensing Officer Relationship Specialty Start Date End Date Jay Howell MD [address] [place] [phone] PCP - General Emergency Medicine 11/12/23 documented as of this encounter
--- OUTSIDE RECORDS SUMMARY | 2025-07-28 09:18 | XMS_ITS | Encounter Summary ---
Author Organization [employer] ([place], [place], [place], [place]) Address [address] [place] [address] Care Team Providers Care Fermenting Cellars Receiver Name Role Phone Jay Howell MD Primary Care Provider [phone] Encounter Details Date Type Department Care Team (Late st Contact Info) Description 12/20/2018 Transcribed Document [facility] [place] [address] [place] [address] ProviderJessie MD [address] [place] [address] Social History Tobacco Use Types Packs/Day Years Used Date Smoking Tobacco: Never Assessed Comments Unknown Sex and Gender Information Value Date Recorded Sex Assigned at Not on file Legal Sex Female 7:30 PM CDT Gender Identity Not on file Sexual Orientation Not on file documented as of this encounter Miscellaneous Notes * Cerner Conversion Note - Historical ProviderMD - 12/20/2018 3:14 PM DENTAL LABORATORY SUPERVISOR Pain Assessment Entered On: 12/21/2018 4:53 EST [...] on filedocumented in this encounter Care Teams Fermenting Cellars Receiver Relationship Specialty Start Date End Date Jay Howell MD [address] [place] [phone] PCP - General Emergency Medicine 11/12/23 documented as of this encounter
--- OUTSIDE RECORDS SUMMARY | 2025-07-28 09:18 | XMS_ITS | Encounter Summary ---
Author Organization [employer] ([place], [place], [place], [place]) Address [address] [place] [address] Care Team Providers Care Carpet Floor Layer Apprentice Name Role Phone Jay Howell MD Primary Care Provider [phone] Encounter Details Date Type Department Care Team (Late st Contact Info) Description 12/21/2018 Transcribed Document [facility] [place] Family Medicine [address] [place] [address] ProviderJessie MD [address] [place] [address] Social History Tobacco Use Types Packs/Day Years Used Date Smoking Tobacco: Never Assessed Comments Unknown Sex and Gender Information Value Date Recorded Sex Assigned at Not on file Legal Sex Female 7:30 PM CDT Gender Identity Not on file Sexual Orientation Not on file documented as of this encounter Miscellaneous Notes * Cerner Conversion Note - Jessie ProviderMD - 12/21/2018 9:33 AM SAMPLE SHOE INSPECTOR AND REWORKER Care Management Assessment/Plan Entered On: 12/21/2018 9:34 EST Performed On: 12/21/2018 9:33 EST by ANISH BRAN RN Care Management Note Care Management Note Report : ANISH BRAN RN - 12/21/18 09:37:01 Discharging today ANISH BRAN RN - 12/21/2018 12:24 EST Care Management Note : Order for cardiac rehab to the program at [facility] - they will ocntact pt Documentation Status Complete : Yes ANISH BRAN RN - 12/21/2018 9:33 EST Discharge Planning Details Discharge Home : Home with spouse/significant other Discharge Placement Needs : Home Persons Assisting Patient at Home : Spouse Transportation Needs : Family/Friend ANISH BRAN RN - 12/21/2018 9:33 EST Final Discharge Disposition Note-CM Discharge To Care Management : Home/Residential/Prison or Self Care -01 ANISH BRAN RN - 12/21/2018 9:33 EST Electronically signed by [facility] Conversion Production Internship Cerner at 02/04/2023 2:07 PM CDT documented in this encounter Plan of Treatment Not on file documented as of this encounter Visit Diagnoses Not on filedocumented in this encounter Care Teams Carpet Floor Layer Apprentice Relationship Specialty Start Date End Date Jay Howell MD [address] [place] [phone] PCP - General Emergency Medicine 11/12/23 documented as of this encounter
--- OUTSIDE RECORDS SUMMARY | 2025-07-28 09:18 | XMS_ITS | Encounter Summary ---
Author Organization [employer] ([place], [place], [place], [place]) Address [address] [place] [address] Care Team Providers Care Manugrapher Name Role Phone Jay Howell MD Primary Care Provider [phone] Encounter Details Date Type Department Care Team (Late st Contact Info) Description 09/04/[address] [facility] [place] Family Medicine [address] [place] [address] ProviderJessie MD [address] [place] [address] Social History Tobacco Use Types Packs/Day Years Used Date Smoking Tobacco: Never Assessed Comments Unknown Sex and Gender Information Value Date Recorded Sex Assigned at Not on file Legal Sex Female 7:30 PM CDT Gender Identity Not on file Sexual Orientation Not on file documented as of this encounter Miscellaneous Notes * Cerner Conversion Note - Jessie ProviderMD - 09/04/2020 4:04 AM DRYWALL HANGER FRAMER ED Triage Entered On: 09/04/2020 4:13 EST Performed On: 09/04/2020 1:51 EST by Chinyere Leonard RN ED Triage Across the Room Chief Complaint : see downtime triage form Triage Date/Time : 09/04/2020 1:51 EST Chinyere Leonard RN - 09/04/2020 4:12 EST DCP GENERIC CODE Tracking Acuity : 4 - Non - Urgent Tracking Group : [facility] ED Cihnyere Leonard RN - 09/04/2020 4:12 EST Mode of Arrival : Ambulatory Transported to ED by : Private vehicle To Room Via : Ambulate Accompanied By : Spouse Height & Weight : Document ED Allergies : Document ED Reason for Visit : Document Tetanus Immunization : Less than 5 years Flexographic Press Set Up Operator Needed : No Chinyere Leonard RN [...] 04:13:26 EST) Problems(Active) Apnea, sleep (SNOMED CT :433703884 ) Name of Problem: Apnea, sleep ; Recorder: JUAN LUIS GIL RN; Confirmation: Confirmed ; Classification: Medical ; Code: [id number] ; Contributor System: [employer] ; Last Updated: 11/12/2014 10:12 EST ; Life Cycle Date: 11/12/2014 ; Life Cycle Status: Active ; Vocabulary: SNOMED CT Arthritis (SNOMED CT :8141566 ) Name of Problem: Arthritis ; Recorder: KENYON CHAMBERS RN; Confirmation: Confirmed ; Classification: Medical ; Code: 6879646 ; Contributor System: Power[employer] ; Last Updated: 04/10/2016 8:04 EDT ; Life Cycle Date: 08/13/2013 ; Life Cycle Status: Active ; Vocabulary: SNOMED CT Atrial fibrillation with RVR (SNOMED CT :1091568689 ) Name of Problem: Atrial fibrillation with RVR ; Recorder: SANG RICO APRN; Confirmation: Confirmed ; Classification: Medical ; Code: 1269657065 ; Contributor System: PowerChart ; Last Updated: 04/10/2016 8:05 EDT ; Life Cycle Date: 04/10/2016 ; Life Cycle Status: Active ; Responsible Provider: SANG RICO APRN; Vocabulary: SNOMED CT Blood clot (SNOMED CT :157960441 ) Name of Problem: Blood clot ; Recorder: KENYON CHAMBERS RN; Confirmation: Confirmed ; Classification: Patient Stated ; Code: 828867307 ; Contributor System: PowerChart ; Last Updated: [...] Vocabulary: Patient Care Chest pain (SNOMED CT :35677203 ) Name of Problem: Chest pain ; Recorder: SANG RICO APRN; Confirmation: Complaint of ; Classification: Medical ; Code: 62728799 ; Contributor System: PowerChart ; Last Updated: 04/10/2016 8:05 EDT ; Life Cycle Status: Active ; Responsible Provider: SANG RICO APRN; Vocabulary: SNOMED CT Chronic anticoagulation (SNOMED CT :424092759 ) Name of Problem: Chronic anticoagulation ; Recorder: SANG RICO APRN; Confirmation: Confirmed ; Classification: Medical ; Code: 340472006 ; Contributor System: PowerChart ; Last Updated: 04/10/2016 8:05 EDT ; Life Cycle Date: 04/10/2016 ; Life Cycle Status: Active ; Responsible Provider: SANG RICO APRN; Vocabulary: SNOMED CT Clotting disorder (SNOMED CT :092708472 ) Name of Problem: Clotting disorder ; Recorder: KENYON CHAMBERS RN; Confirmation: Confirmed ; Classification: Patient Stated ; Code: 886702049 ; Contributor System: PowerChart ; Last Updated: 03/28/2014 19:29 EDT ; Life Cycle Date: 08/13/2013 ; Life Cycle Status: Active ; Vocabulary: SNOMED CT COPD (SNOMED CT :80336604 ) Name of Problem: COPD ; Recorder: KENYON CHAMBERS RN; Confirmation: Confirmed ; Classification: Medical ; Code: 57194881 ; Contributor System: PowerChart ; Last Updated: 04/10/2016 8:03 EDT ; Life Cycle Date: 08/13/2013 ; Life Cycle Status: Active ; Vocabulary: SNOMED CT Coronary artery disease (SNOMED CT :6591789224 ) Name of Problem: Coronary artery disease ; Recorder: KENYON CHAMBERS RN; Confirmation: Confirmed ; Classification: Medical ; Code: 5605880891 ; Contributor System: PowerChart ; Last Updated: 04/10/2016 8:03 EDT ; Life Cycle Date: 08/13/2013 ; Life Cycle Status: Active ; Vocabulary: SNOMED CT Diabetes mellitus (SNOMED CT :353740920 ) Name of Problem: Diabetes mellitus ; Recorder: KENYON CHAMBERS RN; Confirmation: Confirmed ; Classification: Medical ; Code: 196410474 ; Contributor System: PowerChart ; Last Updated: 04/10/2016 8:04 EDT ; Life Cycle Date: 08/13/2013 ; Life Cycle Status: Active ; Vocabulary: SNOMED CT Emphysema (SNOMED CT :366539639 ) Name of Problem: Emphysema ; Recorder: JUAN LUIS GIL RN; Confirmation: Confirmed ; Classification: Medical ; Code: 876044916 ; Contributor System: PowerChart ; Last Updated: 11/12/2014 10:11 EST ; Life Cycle Date: 11/12/2014 ; Life Cycle Status: Active ; Vocabulary: SNOMED CT GERD - Gastro-esophageal reflux disease (SNOMED CT :9032009232 ) Name of Problem: GERD - Gastro-esophageal reflux disease ; Recorder: KENYON CHAMBERS RN; Confirmation: Confirmed ; Classification: Medical ; Code: 5722107277 ; Contributor System: PowerChart ; Last Updated: [...] Patient Care High blood pressure (SNOMED CT :34712419 ) Name of Problem: High blood pressure ; Recorder: KENYON CHAMBERS RN; Confirmation: Confirmed ; Classification: Medical ; Code: 58482504 ; Contributor System: PowerChart ; Last Updated: 04/10/2016 8:03 EDT ; Life Cycle Date: 08/13/2013 ; Life Cycle Status: Active ; Vocabulary: SNOMED CT History of obstructive sleep apnea (IMO :29892357 ) Name of Problem: History of obstructive sleep apnea ; Recorder: SYSTEM, SYSTEM; Confirmation: Confirmed ; Classification: Medical ; Code: 12923095 ; Last Updated: 08/25/2020 18:21 EST ; Life Cycle Date: 08/25/2020 ; Life Cycle Status: Active ; Vocabulary: IMO Hx of pulmonary embolus (SNOMED CT :875653679 ) Name of Problem: Hx of pulmonary embolus ; Recorder: SANG RICO APRN; Confirmation: Confirmed ; Classification: Medical ; Code: 585122593 ; Contributor System: PowerChart ; Last Updated: 04/10/2016 8:05 EDT ; Life Cycle Date: 04/10/2016 ; Life Cycle Status: Active ; Responsible Provider: SANG RICO APRN; Vocabulary: SNOMED CT Hyperlipidemia (SNOMED CT :01688603 ) Name of Problem: Hyperlipidemia ; Recorder: KENYON CHAMBERS RN; Confirmation: Confirmed ; Classification: Medical ; Code: 62594886 ; Contributor System: PowerChart ; Last Updated: 04/10/2016 8:03 EDT ; Life Cycle Date: 08/13/2013 ; Life Cycle Status: Active ; Vocabulary: SNOMED CT Multiple renal cysts (SNOMED CT :374959708 ) Name of Problem: Multiple renal cysts ; Recorder: KENYON CHAMBERS RN; Confirmation: Confirmed ; Classification: Medical ; Code: 673906611 ; Contributor System: [employer] ; Last Updated: 04/10/2016 8:04 EDT ; Life Cycle Date: 08/13/2013 ; Life Cycle Status: Active ; Vocabulary: SNOMED CT Stented coronary artery (SNOMED CT :8867860651 ) Name of Problem: Stented coronary artery ; Recorder: KENYON CHAMBERS RN; Confirmation: Confirmed ; Classification: Medical ; Code: 6892084842 ; Contributor System: [employer] ; Last Updated: 04/10/2016 8:03 EDT ; Life Cycle Date: 08/13/2013 ; Life Cycle Status: Active ; Vocabulary: SNOMED CT Diagnoses(Active) Wound drain evaluation Date: 09/04/2020 ; Diagnosis Type: Reason For Visit ; Confirmation: Complaint of ; Clinical Dx: Wound drain evaluation ; Classification: Medical ; Clinical Service: Non-Specified ; Code: PNED ; Probability: 0 ; Diagnosis Code: [id number] ED Height and Weight Height Source : Stated Height Entry Format : [place] Height, Feet : 5 ft(Converted to: 152 cm, 60 Inch) Height, Inches : 4 Inch(Converted to: 0 ft 4 Inch, 10.16 cm) Clinical Height : 162.56 cm Weight Source, ED : Critical estimated dosing weight Weight Entry Format : [place] Weight, Pounds : 152 lb Clinical Dosing Weight : 69.09 kg Body Surface Area (BSA) : 1.74 m2 Body Mass Index : 26.1 kg/m2 (HI) Newton Body Weight (IBW) : 54.3 kg Chinyere Leonard RN - 09/04/2020 4:12 EST documented in this encounter Plan of Treatment Not on file documented as of this encounter Visit Diagnoses Not on filedocumented in this encounter Care Teams Manugrapher Relationship Specialty Start Date End Date Jay Howell MD [address] [place] [phone] PCP - General Emergency Medicine 11/12/23 documented as of this encounter
--- OUTSIDE RECORDS SUMMARY | 2025-07-28 09:18 | XMS_ITS | Encounter Summary ---
Author Organization [employer] ([place], [place], [place], [place]) Address [address] [place] [address] Care Team Providers Care Purchaser Name Role Phone Jay Hoewll MD Primary Care Provider [phone] Encounter Details Date Type Department Care Team (Late st Contact Info) Description 09/15/2020 Transcribed Document [facility] [place] Family Medicine [address] [place] [address] ProviderJessie MD [address] [place] [address] Social History Tobacco Use Types Packs/Day Years Used Date Smoking Tobacco: Never Assessed Comments Unknown Sex and Gender Information Value Date Recorded Sex Assigned at Not on file Legal Sex Female 7:30 PM CDT Gender Identity Not on file Sexual Orientation Not on file documented as of this encounter Miscellaneous Notes * Cerner Conversion Note - Jessie Yuen MD - 09/15/2020 4:06 PM DATA ARCHITECT Patient: SKYLER MONTOYA Age: 79 Years Sex: [...] present starting at the level of the AIR ANALYSIS ENGINEERING TECHNICIAN. Non significant, non-flow restricting plaque noted at common femoral artery. 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 There is a significant (50-75%) stenosis of the distal AIR ANALYSIS ENGINEERING TECHNICIAN. Non significant, non-flow restricting plaque noted at DPA. AIR ANALYSIS ENGINEERING TECHNICIAN & DPA non compressible for FERNIE. TBI: Non compressible. LEFT: Abnormal arterial runoff disease present starting at the level of the AIR ANALYSIS ENGINEERING TECHNICIAN. Non significant, non-flow restricting plaque noted at common femoral artery. There is a severe (>75%) stenosis of the distal AIR ANALYSIS ENGINEERING TECHNICIAN. AIR ANALYSIS ENGINEERING TECHNICIAN & DPA non compressible for FERNIE. TBI: Non compressible. Electronically signed by Sivan [facility] Conversion Spreader Box Operator Cerner at 02/04/2023 2:21 PM CDT documented in this encounter Plan of Treatment Not on file documented as of this encounter Visit Diagnoses Not on filedocumented in this encounter Care Teams Purchaser Relationship Specialty Start Date End Date Jay Howell MD [address] [place] [phone] PCP - General Emergency Medicine 11/12/23 documented as of this encounter
--- OUTSIDE RECORDS SUMMARY | 2025-07-28 09:18 | XMS_ITS | Encounter Summary ---
Author Organization [employer] ([place], [place], [place], [place]) Address [address] [place] [address] Care Team Providers Care Equip Tech Name Role Phone Jay Howell MD Primary Care Provider [phone] Encounter Details Date Type Department Care Team (Late st Contact Info) Description 12/12/2018 Transcribed Document [facility] Family Medicine [address] [place] [address] ProviderJessie MD [address] [place], [place] [address] Social History Tobacco Use Types Packs/Day Years Used Date Smoking Tobacco: Never Assessed Comments Unknown Sex and Gender Information Value Date Recorded Sex Assigned at Not on file Legal Sex Female 7:30 PM CDT Gender Identity Not on file Sexual Orientation Not on file documented as of this encounter Miscellaneous Notes * Cerner Conversion Note - Jessie ProviderMD - 12/12/2018 10:41 PM FASHION STYLING INTERN [address] [place] [address] Patient Information Name: SKYLER MONTOYA [...] please contact the Patient Resource Center at [phone]. With: Address: When: Follow-up with your lead welder in the morning. Return to the closest emergency department for any acute new concerns or recurrence of symptoms. Within in AM With: Address: When: TARA CHEN [address] [place] [address] [address] [place], [place] [address] [facility] [...] physical activity. It especially occurs in the volunteer services supervisor hours. What are the causes? Atherosclerosis is [...] 10/03/2006 Document Revised: 03/16/2017 Document Reviewed: 02/04/2015 [employer] Patient Education ? 2017 [employer] Allergies: Macrodantin; morphine; nitrofurantoin Medication Information: [...] range between ( 0.0 and 7.0 ) Billings #: 0.65 K/uL -- Normal range between ( 0.16 and 1.00 ) Eos #: 0.00 x10(3)/uL -- Normal range between ( 0.00 and 0.80 ) Billings %: 10.7 % -- Normal range between [...] verify that SKYLER MONTOYA was seen at [facility] Emergency Department on ,12/12/2018 22:41:24. This [...] along the way. As a healthcare provider, [facility] recommends that you stop smoking. Assistance with quitting is available by contacting 8-281-TKIO-NOW. This is a free resource providing counseling, [...] Electronic Communications Privacy Act 18 U.S.C. ???Sections 1456-7922,?? and contain information intended for the specified [...] Be sure to sign up for the [facility] patient portal, which gives you 09/05 access to your medical information ??? including these discharge instructions ??? using your computer, smartphone, or tablet. Just go to [employer] to get started. Questions? Call . Acknowledgment [...] Yes____ No____ Nurse Providing Instructions: Emergency Physician: documented in this encounter Plan of Treatment Not on file documented as of this encounter Visit Diagnoses Not on filedocumented in this encounter Care Teams Equip Tech Relationship Specialty Start Date End Date Jay Howell MD [address] [place] [phone] PCP - General Emergency Medicine 11/12/23 documented as of this encounter
--- OUTSIDE RECORDS SUMMARY | 2025-07-28 09:18 | XMS_ITS | Encounter Summary ---
Author Organization [employer] ([place], [place], [place], [place]) Address [address] [place] [address] Care Team Providers Care Event Planner Name Role Phone Jay Howell MD Primary Care Provider [phone] Encounter Details Date Type Department Care Team (Late st Contact Info) Description 12/12/2018 Transcribed Document [facility] [place] Family Medicine [address] [place] [address] ProviderJessie MD [address] [place] [address] Social History Tobacco Use Types [...] - Historical ProviderMD - 12/12/2018 10:41 PM BREAD AND PASTRY BAKER [address] [place], [place] [id number] PERSON INFORMATION Name SKYLER MONTOYA Age 77 Years 1940 Sex Female Language Dutch PCP TARA CHEN (REF), -MED Marital Status Med Service Emergency Medicine Acct# Arrival 12/12/2018 20:58:00 Visit Reason Chest pain; CHEST PAIN FOR LAST 2HRS Acuity 2 - Emergent LOS 000 01:43 Depart Date: 02/26/19 10:41 PM Address: [place] [address] Comment: PROVIDER INFORMATION Provider Role Assigned Unassigned [...] please contact the Patient Resource Center at [phone]. With: Address: When: Follow-up with your health plan manager in the morning. Return to the closest emergency department for any acute new concerns or recurrence of symptoms. Within in AM With: Address: When: TARA CHEN [address] [facility] [place] [address] Business (1) Within 2 to 3 days Comment: documented in this encounter Plan of Treatment Not on file documented as of this encounter Visit Diagnoses Not on filedocumented in this encounter Care Teams Event Planner Relationship Specialty Start Date End Date Jay Howell MD [address] [facility] [place] [phone] PCP - General Emergency Medicine 11/12/23 documented as of this encounter
--- OUTSIDE RECORDS SUMMARY | 2025-07-28 09:18 | XMS_ITS | Encounter Summary ---
Author Organization [employer] ([place], [place], [place], [place]) Address [address] [place] [address] Care Team Providers Care Aviation Tactical Readiness Officer Name Role Phone Jay Howell MD Primary Care Provider [phone] Encounter Details Date Type Department Care Team (Late st Contact Info) Description 09/01/2020 Transcribed Document [facility] Family Medicine [facility] [place] [address] ProviderJessie MD [address] [place], [place] [address] Social History Tobacco Use Types Packs/Day Years Used Date Smoking Tobacco: Never Assessed Comments Unknown Sex and Gender Information Value Date Recorded Sex Assigned at Not on file Legal Sex Female 7:30 PM CDT Gender Identity Not on file Sexual Orientation Not on file documented as of this encounter Miscellaneous Notes * Cerner Conversion Note - Historical MD Alpa - 09/01/2020 9:27 AM HEAVY EQUIPMENT PLUMBING SUPERVISOR Patient: SKYLER BAUTISTA Age: 79 Years Sex: [...] [1] Summary BILATERAL: Monophasic waveforms of the DOT NET DEVELOPER, & DPA . Unable to compress DOT NET DEVELOPER and DPA (>220 mmHg). Toe brachial index: Non-compressible [2] RIGHT: Abnormal arterial runoff disease present starting at the level of the DOT NET DEVELOPER. Non significant, non-flow restricting plaque noted at common femoral artery. 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 There is a significant (50-75%) stenosis of the distal DOT NET DEVELOPER. Non significant, non-flow restricting plaque noted at DPA. DOT NET DEVELOPER & DPA non compressible for FERNIE. TBI: Non compressible. LEFT: Abnormal arterial runoff disease present starting at the level of the DOT NET DEVELOPER. Non significant, non-flow restricting plaque noted at common femoral artery. There is a severe (>75%) stenosis of the distal DOT NET DEVELOPER. DOT NET DEVELOPER & DPA non compressible for FERNIE. TBI: [...] multiple stent placements. The patient presented to [facility] ER after recent fall with hematoma [...] Vitamins oral tablet 1 Tab, Oral, Daily [place] 7.5 mg-325 mg oral tablet 1 Tab, [...] -- Start: 08/26/20 17:14:00 EST, 60 gm carbs:[id number] george, Isolation: Standard Precautions, Instructions: Diabetic Diet [...] Ankle Min 3 Vws LT; Shannon Marquez, Aquarist 08/22/2020 21:21 EST [2] [facility]; ERMA ZHENG MD-AMALIA 08/25/2020 11:29 EST [3] [facility]; ERMA ZHENG MD-AMALIA 08/25/2020 11:40 EST [4] MRI Spine Lumbar WO; Leti Wakefield, MULTI MODALITY TECHNOLOGIST 08/25/2020 15:21 EST [5] CT Abdomen WO W; Gus Lopez, MANAGER CORPORATE STRATEGY 08/27/2020 18:06 EST [6] Admission History and Physical; BETH DAVALOS MD-INT 08/25/2020 06:23 EST Electronically signed by Gayle Finnegan Conversion Equipment Operating Engineer Cerner at 02/04/2023 2:21 PM CDT documented in this encounter Plan of Treatment Not on file documented as of this encounter Visit Diagnoses Not on filedocumented in this encounter Care Teams Aviation Tactical Readiness Officer Relationship Specialty Start Date End Date Jay Howell MD [address] [place] [phone] PCP - General Emergency Medicine 11/12/23 documented as of this encounter
--- OUTSIDE RECORDS SUMMARY | 2025-07-28 09:18 | XMS_ITS | Encounter Summary ---
Author Organization [employer] ([place], [place], [place], [place]) Address [address] [place] [address] Care Team Providers Care Nanoscience Technician Name Role Phone Jay Howell MD Primary Care Provider [phone] Encounter Details Date Type Department Care Team (Late st Contact Info) Description 09/01/2020 Transcribed Document [facility] Family Medicine [address] [place] [address] ProviderJessie MD [address] [place] [address] Social History Tobacco Use Types Packs/Day Years Used Date Smoking Tobacco: Never Assessed Comments Unknown Sex and Gender Information Value Date Recorded Sex Assigned at Not on file Legal Sex Female 7:30 PM CDT Gender Identity Not on file Sexual Orientation Not on file documented as of this encounter Miscellaneous Notes * Cerner Conversion Note - Jessie Yuen MD - 09/01/2020 1:19 PM CAMERA ASSEMBLER Final Discharge Planning Entered On: 09/01/2020 13:20 EST Performed On: 09/01/2020 13:19 EST by KAVITA PELLETIER RN-Roustabout Crew Leader Final Discharge Planning Discharge Arrangements : Patient Post-Acute Information Patient Name: SKYLER MONTOYA Gender: Female : [birth year] Age: 79 Years [place] Referral(s): Service: Organization: Business Address: Phone Number: [address], [address] Patient Offered Choice/Affiliations Explained : [...] Services (Related/SOC within 3 days)- KAVITA PELLETIER RN-Roustabout Crew Leader - 09/01/2020 13:19 EST Final Narrative Note Final Narrative Note : INR-1.4. Pt will dc home today on Lovenox to bridge Coumadin. Orders for HH to INR sent to [facility] and hui jauregui in intake and of pt's dc home today. F/u appts scheduled with PCP, Vasc, and ID. No other CM needs noted. KAVITA PELLETIER RN-Roustabout Crew Leader - 09/01/2020 13:19 EST documented in this encounter Plan of Treatment Not on file documented as of this encounter Visit Diagnoses Not on filedocumented in this encounter Care Teams Nanoscience Technician Relationship Specialty Start Date End Date Jay Howell MD [address] [place] [phone] PCP - General Emergency Medicine 11/12/23 documented as of this encounter
--- OUTSIDE RECORDS SUMMARY | 2025-07-28 09:18 | XMS_ITS | Encounter Summary ---
Author Organization [employer] ([place], [place], [place], [place]) Address [address] [place] [address] Care Team Providers Care Agricultural Agent Name Role Phone Jay Howell MD Primary Care Provider [phone] Encounter Details Date Type Department Care Team (Late st Contact Info) Description 09/08/2020 Transcribed Document [facility] [place] [address] [place] [address] ProviderJessie MD [address] [place] [address] Social History Tobacco Use Types Packs/Day Years Used Date Smoking Tobacco: Never Assessed Comments Unknown Sex and Gender Information Value Date Recorded Sex Assigned at Not on file Legal Sex Female 7:30 PM CDT Gender Identity Not on file Sexual Orientation Not on file documented as of this encounter Miscellaneous Notes * Cerner Conversion Note - Jessie Yuen MD - 09/08/2020 5:17 PM MINK FARMER Patient: SKYLER MONTOYA Age: 79 Years Sex: Female : 1940 Reason for Consultation LEFT LE wound History of Present Illness Ms. Montoya is an 79 year-old female who presents to the [facility] [place] for f/u after recent hospitalization. She has [...] lower extremity run-off - LEFT PT angioplasty ([id number] Nanocross) - LEFT peroneal angioplasty (2.5-9u449tt Nanocross) - LEFT leg debridement Other: - [...] No labs to review Electronically signed by [facility], [facility] Conversion Pump Station Operator Cerner at 02/04/2023 1:55 PM CDT documented in this encounter Plan of Treatment Not on file documented as of this encounter Visit Diagnoses Not on filedocumented in this encounter Care Teams Agricultural Agent Relationship Specialty Start Date End Date Jay Howell MD [address] [place] [phone] PCP - General Emergency Medicine 11/12/23 documented as of this encounter
--- OUTSIDE RECORDS SUMMARY | 2025-07-28 09:18 | XMS_ITS | Encounter Summary ---
Author Organization [facility] ([place], [place], [place], [place]) Address [address] [place] [address] Care Team Providers Care Regulatory Affairs Internship Name Role Phone Jay Howell MD Primary Care Provider [phone] Encounter Details Date Type Department Care Team (Late st Contact Info) Description 12/20/2018 Transcribed Document [facility] [place] [address] [place] [address] ProviderJessie MD [address] [place] [address] Social History Tobacco Use Types Packs/Day Years Used Date Smoking Tobacco: Never Assessed Comments Unknown Sex and Gender Information Value Date Recorded Sex Assigned at Not on file Legal Sex Female 7:30 PM CDT Gender Identity Not on file Sexual Orientation Not on file documented as of this encounter Miscellaneous Notes * Cerner Conversion Note - Historical ProviderMD - 12/20/2018 9:55 PM ACCOUNTING ADVISORY SERVICES MANAGER Pain Assessment Entered On: 12/21/2018 4:53 [...] on filedocumented in this encounter Care Teams Regulatory Affairs Internship Relationship Specialty Start Date End Date Jay Howell MD [address] [place] [phone] PCP - General Emergency Medicine 11/12/23 documented as of this encounter
--- OUTSIDE RECORDS SUMMARY | 2025-07-28 09:18 | XMS_ITS | Encounter Summary ---
Author Organization [employer] ([place], [place], [place]) Address [address] [place] [address] Care Team Providers Care Appeals Analyst Name Role Phone Jay Howell MD Primary Care Provider [phone] Encounter Details Date Type Department Care Team (Late st Contact Info) Description 08/31/2020 Transcribed Document [facility] [place] [address] [place] [address] ProviderJessie MD [address] [place] [address] Social History Tobacco Use Types Packs/Day Years Used Date Smoking Tobacco: Never Assessed Comments Unknown Sex and Gender Information Value Date Recorded Sex Assigned at Not on file Legal Sex Female 7:30 PM CDT Gender Identity Not on file Sexual Orientation Not on file documented as of this encounter Miscellaneous Notes * Cerner Conversion Note - Jessie Yuen MD - 08/31/2020 10:44 AM PHOTOGRAPH EDITOR Patient: SKYLER MONTOYA Age: 79 years Sex: [...] level of muscle per surgery *Operation RIGHT OIL WELL PERFORATOR OPERATOR access - ultrasound guided Aortogram with LEFT lower extremity run-off LEFT PT angioplasty (2.5-1i308cc Nanocross) LEFT peroneal angioplasty (2.5-9s293eh Nanocross) RIGHT OIL WELL PERFORATOR OPERATOR closure (Angioseal) LEFT leg debridement 08/31/20 seen [...] Level 3.8 mmol/L 08/30/2020 04:13 MICRO: ACC: [id number] ORDER: Culture Anaerobic DATE: 08/26/2020 13:56 SOURCE: Surgical Swab SITE: Leg Lower L Reports Final 08/31/2020 07:45 No Anaerobic growth Pre 08/28/2020 07:01 No Anaerobic growth Pre 08/27/2020 07:47 Culture in progress == ACC: [id number] ORDER: Culture Blood DATE: 08/25/2020 05:01 SOURCE: Blood SITE: Reports Final 08/30/2020 06:01 No growth at 5 days. Pre 08/29/2020 06:01 No growth at 4 days. Pre 08/28/2020 06:01 No growth at 3 days. Pre 08/27/2020 06:01 No growth at 2 days. Pre 08/26/2020 06:01 No growth at 1 day. Pre 08/25/2020 23:02 Culture less than 24 Hrs old == ACC: [id number] ORDER: Culture Blood DATE: 08/25/2020 05:01 SOURCE: Blood SITE: Reports Final 08/30/2020 06:01 No growth at 5 days. Pre 08/29/2020 06:02 No growth at 4 days. Pre 08/28/2020 06:01 No growth at 3 days. Pre 08/27/2020 06:01 No growth at 2 days. Pre 08/26/2020 06:01 No growth at 1 day. Pre 08/25/2020 23:02 Culture less than 24 Hrs old == ACC: [id number] ORDER: Culture Wound and Stain DATE: 08/26/2020 15:23 SOURCE: Surgical Swab SITE: Leg Lower L Reports Final 08/29/2020 08:29 No growth Pre 08/27/2020 07:14 No growth GS 08/26/2020 18:13 Few White Blood Cells No organisms seen. == ACC: [id number] ORDER: Culture Wound and Stain DATE: 08/25/2020 05:00 SOURCE: Wound SITE: Leg Lower L Reports Final 08/28/2020 08:57 No growth Pre 08/26/2020 06:23 No growth GS 08/25/2020 07:26 No organisms seen. Few White Blood Cells Rare epithelial cells == ACC: [id number] ORDER: Culture AFB and Stain DATE: 08/26/2020 13:56 SOURCE: Surgical Swab SITE: Leg Lower L Reports AFS 08/27/2020 13:07 No Acid Fast Bacilli seen == ACC: [id number] ORDER: Culture Fungus DATE: 08/26/2020 13:56 SOURCE: [...] closely after discharge Electronically signed by Sivan [facility] Conversion Personal Investment Adviser Cerner at 02/04/2023 2:11 PM CDT documented in this encounter Plan of Treatment Not on file documented as of this encounter Visit Diagnoses Not on filedocumented in this encounter Care Teams Appeals Analyst Relationship Specialty Start Date End Date Jay Howell MD [address] [place] [phone] PCP - General Emergency Medicine 11/12/23 documented as of this encounter
--- OUTSIDE RECORDS SUMMARY | 2025-07-28 09:18 | XMS_ITS | Encounter Summary ---
Author Organization [email or web address] ([place], [place], [place], [place]) Address [address] [place] [address] Care Team Providers Care Oxygen Equipment Aide Name Role Phone Jay Howell MD Primary Care Provider [phone] Encounter Details Date Type Department Care Team (Late st Contact Info) Description 08/29/2020 Transcribed Document [facility] [place] [address] [place] [address] ProviderJessie MD [address] [place] [address] Social History Tobacco Use Types Packs/Day Years Used Date Smoking Tobacco: Never Assessed Comments Unknown Sex and Gender Information Value Date Recorded Sex Assigned at Not on file Legal Sex Female 7:30 PM CDT Gender Identity Not on file Sexual Orientation Not on file documented as of this encounter Miscellaneous Notes * Cerner Conversion Note - Jessie ProviderMD - 08/29/2020 2:50 PM JAPANESE INTERPRETER WOCN Inpatient Documentation Entered On: 08/29/2020 14:52 [...] Ulcer WOCN Wound Pressure Ulcer Documentation : [id number] Abnormality: Leg Left Lower, Anterior on 08/29/2020 [...] on filedocumented in this encounter Care Teams Oxygen Equipment Aide Relationship Specialty Start Date End Date Jay Howell MD [address] [place] [phone] PCP - General Emergency Medicine 11/12/23 documented as of this encounter
--- OUTSIDE RECORDS SUMMARY | 2025-07-28 09:18 | XMS_ITS | Encounter Summary ---
Author Organization [employer] ([place], [place], [place], [place]) Address [address] [place] [address] Care Team Providers Care Director Of Casework Name Role Phone Jay Howell MD Primary Care Provider [phone] Encounter Details Date Type Department Care Team (Late st Contact Info) Description 08/29/2020 Transcribed Document [facility] [place] [address] [place] [address] ProviderJessie MD [address] [place], [place] [address] Social History Tobacco Use Types Packs/Day Years Used Date Smoking Tobacco: Never Assessed Comments Unknown Sex and Gender Information Value Date Recorded Sex Assigned at Not on file Legal Sex Female 7:30 PM CDT Gender Identity Not on file Sexual Orientation Not on file documented as of this encounter Miscellaneous Notes * Cerner Conversion Note - Historical ProviderMD - 08/29/2020 12:42 PM BALLPOINT PEN ASSEMBLY MACHINE OPERATOR Patient: SKYLER MONTOYA Age: 79 [...] 08/29/2020 01:38 EST Electronically signed by Sivan [facility] Conversion Rental Management Trainee Cerner at 02/04/2023 2:06 PM CDT documented in this encounter Plan of Treatment Not on file documented as of this encounter Visit Diagnoses Not on filedocumented in this encounter Care Teams Director Of Casework Relationship Specialty Start Date End Date Jay Howell MD [address] [place] [phone] PCP - General Emergency Medicine 11/12/23 documented as of this encounter
--- OUTSIDE RECORDS SUMMARY | 2025-07-28 09:18 | XMS_ITS | Encounter Summary ---
Author Organization [employer] ([place], [place], [place], [place]) Address [address] [place] [address] Care Team Providers Care Mechanical Maintenance Worker Name Role Phone Jay Howell MD Primary Care Provider [phone] Encounter Details Date Type Department Care Team (Late st Contact Info) Description 12/20/2018 Transcribed Document [facility] [place] Family Medicine [address] [place] [address] ProviderJessie MD [address] [place] [address] Social History Tobacco Use Types Packs/Day Years Used Date Smoking Tobacco: Never Assessed Comments Unknown Sex and Gender Information Value Date Recorded Sex Assigned at Not on file Legal Sex Female 7:30 PM CDT Gender Identity Not on file Sexual Orientation Not on file documented as of this encounter Miscellaneous Notes * Cerner Conversion Note - Jessie Yuen MD - 12/20/2018 8:00 AM GELATIN DYNAMITE PACKING OPERATOR Patient: SKYLER MONTOYA Age: 77 years Sex: Female : 1940 Associated Diagnoses: None Author: FREDY PACHECO MD-CAR Basic Information PCP: Dr. Moeller Tanbark Peeler: Stephania Garcia MD Chief Complaint Pre-op clearance; shoulder surgery with Dr. Prieto Watters at [facility] Stress test 12/06/18; abnormal History of Present [...] All Problems Chest pain / SNOMED CT 89138928 / Complaint of Cataract / Patient Care / Confirmed Glaucoma / Patient Care / Confirmed Coronary artery disease / SNOMED CT 8196246567 / Confirmed Stented coronary artery / SNOMED CT 2469884006 / Confirmed High blood pressure / SNOMED CT 52265103 / Confirmed Hyperlipidemia / SNOMED CT 24896946 / Confirmed Clotting disorder / SNOMED CT 640086251 / Confirmed COPD / SNOMED CT 84653008 / Confirmed GERD - Gastro-esophageal reflux disease / SNOMED CT 3725973852 / Confirmed Multiple renal cysts / SNOMED CT 941270198 / Confirmed UTI - Urinary tract infection / SNOMED CT 2399220827 / Confirmed Arthritis / SNOMED CT 8677737 / Confirmed Diabetes mellitus / SNOMED CT 233031338 / Confirmed Blood clot / SNOMED CT 073477261 / Confirmed Emphysema / SNOMED CT 148961080 / Confirmed Apnea, sleep / SNOMED CT 731383564 / Confirmed Hx of pulmonary embolus / SNOMED CT 120606351 / Confirmed Chronic anticoagulation / SNOMED CT 692136472 / Confirmed Atrial fibrillation with RVR / SNOMED CT 5873905648 / Confirmed History of obstructive sleep apnea / IMO 58273317 / Confirmed Histories No education data available. [...] History: Active Cataract Glaucoma Coronary artery disease (1257093673) Stented coronary artery (0017143440) High blood pressure (09074178) Hyperlipidemia (18606767) COPD (83844166) GERD - Gastro-esophageal reflux disease (0009576690) Multiple renal cysts (637423979) UTI - Urinary tract infection (7245995566) Arthritis (0375229) Diabetes mellitus (169367372) Emphysema (711229522) Apnea, sleep (382831067) Hx of pulmonary embolus (074165746) Chronic anticoagulation (930472781) Atrial fibrillation with RVR (7748253038) Family History: Cardiomyopathy Child Stroke Brother Heart attack Brother Sister Leukemia Child Cancer Father Mother Sister Coronary heart disease Child Procedure history: femur repair. Appendectomy (982916113). uterine suspension. Hysterectomy (544254724). back surgury. Coronary artery bypass graft (241432131). Cholecystectomy (44356081). Hip replacement (1616550631). cataract surgury. Social History Social & Psychosocial [...] of motion, Normal strength. Integumentary: Warm, Dry, [place]. Neurologic: Alert, Oriented. Psychiatric: Cooperative. Review / [...] days post cath. Electronically signed by Sivan, [facility] Conversion Boiler Service Technician Cerner at 02/04/2023 2:21 PM CDT documented in this encounter Plan of Treatment Not on file documented as of this encounter Visit Diagnoses Not on filedocumented in this encounter Care Teams Mechanical Maintenance Worker Relationship Specialty Start Date End Date Jay Howell MD [address] [place] [phone] PCP - General Emergency Medicine 11/12/23 documented as of this encounter
--- OUTSIDE RECORDS SUMMARY | 2025-07-28 09:18 | XMS_ITS | Encounter Summary ---
Author Organization [employer] ([place], [place], [place]) Address [address] [place] [address] Care Team Providers Care Senior Ux Developer Name Role Phone Jay Howell MD Primary Care Provider [phone] Encounter Details Date Type Department Care Team (Late st Contact Info) Description 08/29/2020 Transcribed Document [facility] [place] Family Medicine [address] [place] [address] ProviderJessie MD [address] [place] [address] Social History Tobacco Use Types Packs/Day Years Used Date Smoking Tobacco: Never Assessed Comments Unknown Sex and Gender Information Value Date Recorded Sex Assigned at Not on file Legal Sex Female 7:30 PM CDT Gender Identity Not on file Sexual Orientation Not on file documented as of this encounter Miscellaneous Notes * Cerner Conversion Note - Jessie Yuen MD - 08/29/2020 8:24 AM FAMILY DAY CARE PROVIDER Patient: SKYLER MONTOYA Age: 79 years Sex: Female : 1940 Associated Diagnoses: None Author: SLICK BRADLEY, [facility] Ms. Montoya is 79 yo female admitted [...] filedocumented in this encounter Care Teams Senior Ux Developer Relationship Specialty Start Date End Date Jay Howell MD [address] [place] [phone] PCP - General Emergency Medicine 11/12/23 documented as of this encounter
--- OUTSIDE RECORDS SUMMARY | 2025-07-28 09:18 | XMS_ITS | Encounter Summary ---
Author Organization [employer] ([place], [place], [place], [place]) Address [address] [place] [address] Care Team Providers Care Polls Or Surveys Interviewer Name Role Phone Jay Howell MD Primary Care Provider [phone] Encounter Details Date Type Department Care Team (Late st Contact Info) Description 08/30/2020 Transcribed Document [facility] [place] [address] [place] [address] ProviderJessie MD [address] [place] [address] Social History Tobacco Use Types Packs/Day Years Used Date Smoking Tobacco: Never Assessed Comments Unknown Sex and Gender Information Value Date Recorded Sex Assigned at Not on file Legal Sex Female 7:30 PM CDT Gender Identity Not on file Sexual Orientation Not on file documented as of this encounter Miscellaneous Notes * Cerner Conversion Note - Jessie Yuen MD - 08/30/2020 10:43 AM CHIEF DEPUTY SHERIFF Patient: SKYLER MONTOYA Age: 79 years Sex: [...] level of muscle per surgery *Operation RIGHT LABORER PRESTRESSED CONCRETE access - ultrasound guided Aortogram with LEFT lower extremity run-off LEFT PT angioplasty (2.5-6t196tv Nanocross) LEFT peroneal angioplasty (2.5-9a143or Nanocross) RIGHT LABORER PRESTRESSED CONCRETE closure (Angioseal) LEFT leg debridement 08/30/20 doing [...] Level 0.70 mg/dL 08/29/2020 02:04 Bun/Creatinine 22.9 [place] 08/29/2020 02:04 eGFR >60 mL/min/1.73m2 08/29/2020 02:04 eGFR NonAfrican >60 mL/min/1.73m2 08/29/2020 02:04 Bun/Creatinine 22.9 [place] 08/29/2020 07:33 Sodium Level 138 mmol/L 08/29/2020 02:04 Potassium Level 3.8 mmol/L 08/30/2020 04:13 Chloride Level 108 mmol/L 08/29/2020 02:04 Carbon Dioxide Level 23 mmol/L 08/29/2020 02:04 Anion Gap 10 08/29/2020 02:04 Blood Urea Nitrogen 16 mg/dL 08/29/2020 02:04 Glucose Level 108 mg/dL [place] 08/29/2020 02:04 Calcium Level 9.1 mg/dL 08/29/2020 02:04 MICRO: ACC: [id number] ORDER: Culture Blood DATE: 08/25/2020 05:01 SOURCE: Blood SITE: Reports Final 08/30/2020 06:01 No growth at 5 days. Pre 08/29/2020 06:01 No growth at 4 days. Pre 08/28/2020 06:01 No growth at 3 days. Pre 08/27/2020 06:01 No growth at 2 days. Pre 08/26/2020 06:01 No growth at 1 day. Pre 08/25/2020 23:02 Culture less than 24 Hrs old == ACC: [id number] ORDER: Culture Blood DATE: 08/25/2020 05:01 SOURCE: Blood SITE: Reports Final 08/30/2020 06:01 No growth at 5 days. Pre 08/29/2020 06:02 No growth at 4 days. Pre 08/28/2020 06:01 No growth at 3 days. Pre 08/27/2020 06:01 No growth at 2 days. Pre 08/26/2020 06:01 No growth at 1 day. Pre 08/25/2020 23:02 Culture less than 24 Hrs old == ACC: [id number] ORDER: Culture Wound and Stain DATE: 08/26/2020 15:23 SOURCE: Surgical Swab SITE: Leg Lower L Reports Final 08/29/2020 08:29 No growth Pre 08/27/2020 07:14 No growth GS 08/26/2020 18:13 Few White Blood Cells No organisms seen. == ACC: [id number] ORDER: Culture Wound and Stain DATE: 08/25/2020 05:00 SOURCE: Wound SITE: Leg Lower L Reports Final 08/28/2020 08:57 No growth Pre 08/26/2020 06:23 No growth GS 08/25/2020 07:26 No organisms seen. Few White Blood Cells Rare epithelial cells == ACC: [id number] ORDER: Culture AFB and Stain DATE: 08/26/2020 13:56 SOURCE: Surgical Swab SITE: Leg Lower L Reports AFS 08/27/2020 13:07 No Acid Fast Bacilli seen == ACC: [id number] ORDER: Culture Anaerobic DATE: 08/26/2020 13:56 SOURCE: Surgical Swab SITE: Leg Lower L Reports Pre 08/28/2020 07:01 No Anaerobic growth Pre 08/27/2020 07:47 Culture in progress == ACC: [id number] ORDER: Culture Fungus DATE: 08/26/2020 13:56 SOURCE: [...] on filedocumented in this encounter Care Teams Polls Or Surveys Interviewer Relationship Specialty Start Date End Date Jay Howell MD [address] [place] [phone] PCP - General Emergency Medicine 11/12/23 documented as of this encounter
--- OUTSIDE RECORDS SUMMARY | 2025-07-28 09:18 | XMS_ITS | Encounter Summary ---
Author Organization [employer] ([place], [place], [place], [place]) Address [address] [place] [address] Care Team Providers Care Tombstone Erector Helper Name Role Phone Jay Howell MD Primary Care Provider [phone] Encounter Details Date Type Department Care Team (Late st Contact Info) Description 09/04/2020 Transcribed Document [facility] [place] Family Medicine [address] [place] [address] ProviderJessie MD [address] [place] [address] Social History Tobacco Use Types Packs/Day Years Used Date Smoking Tobacco: Never Assessed Comments Unknown Sex and Gender Information Value Date Recorded Sex Assigned at Not on file Legal Sex Female 7:30 PM CDT Gender Identity Not on file Sexual Orientation Not on file documented as of this encounter Miscellaneous Notes * Cerner Conversion Note - Historical ProviderMD - 09/04/2020 4:13 AM TOP PRECIPITATOR OPERATOR ED Event Note Entered On: 09/04/2020 4:13 EST Performed On: 09/04/2020 4:13 EST by Chinyere Leonard RN ED Event Note ED Event Date/Time : 09/04/2020 2:00 EST ED Description of Event : pt arrived during system downtime; view downtime form Chinyere Leonard RN - 09/04/2020 4:13 EST Electronically signed by Sivan [facility] Conversion Orthopedics Teacher Cerner at 02/04/2023 2:13 PM CDT documented in this encounter Plan of Treatment Not on file documented as of this encounter Visit Diagnoses Not on filedocumented in this encounter Care Teams Tombstone Erector Helper Relationship Specialty Start Date End Date Jay Howell MD [address] [place] [phone] PCP - General Emergency Medicine 11/12/23 documented as of this encounter
--- OUTSIDE RECORDS SUMMARY | 2025-07-28 09:18 | XMS_ITS | Encounter Summary ---
Author Organization [employer] ([place], [place], [place], [place]) Address [address] [place] [address] Care Team Providers Care Motor And Controls Tester Name Role Phone Jay Howell MD Primary Care Provider [phone] Encounter Details Date Type Department Care Team (Late st Contact Info) Description 08/31/2020 Transcribed Document [facility] [place] Family Medicine [address] [place] [address] ProviderJessie MD [address] [place] [address] Social History Tobacco Use Types Packs/Day Years Used Date Smoking Tobacco: Never Assessed Comments Unknown Sex and Gender Information Value Date Recorded Sex Assigned at Not on file Legal Sex Female 7:30 PM CDT Gender Identity Not on file Sexual Orientation Not on file documented as of this encounter Miscellaneous Notes * Cerner Conversion Note - Jessie Yuen MD - 08/31/2020 8:53 AM BAND MAKER Patient: SKYLER MONTOYA Age: 79 years [...] for this consult, Miladys Lopez, KellD PGY-1 Microsoft Exchange Architect Pager #: [phone] Extension #: [phone] Electronically signed by Sivan [facility] Conversion Commodity Industry Analyst Cerner at 02/04/2023 2:02 PM CDT documented in this encounter Plan of Treatment Not on file documented as of this encounter Visit Diagnoses Not on filedocumented in this encounter Care Teams Motor And Controls Tester Relationship Specialty Start Date End Date Jay Howell MD [address] [place] [phone] PCP - General Emergency Medicine 11/12/23 documented as of this encounter
--- OUTSIDE RECORDS SUMMARY | 2025-07-28 09:18 | XMS_ITS | Encounter Summary ---
Author Organization [employer] ([place], [place], [place], [place]) Address [address] [place] [address] Care Team Providers Care Computerized Table Cutter Name Role Phone Jay Howell MD Primary Care Provider [phone] Encounter Details Date Type Department Care Team (Late st Contact Info) Description 08/30/[address] [facility] [place] [address] [place] [address] ProviderJessie MD [address] [place] [address] Social History Tobacco Use Types Packs/Day Years Used Date Smoking Tobacco: Never Assessed Comments Unknown Sex and Gender Information Value Date Recorded Sex Assigned at Not on file Legal Sex Female 7:30 PM CDT Gender Identity Not on file Sexual Orientation Not on file documented as of this encounter Miscellaneous Notes * Cerner Conversion Note - Jessie Yuen MD - 08/30/2020 8:14 AM MANAGER COSMETICS Patient: SKYLER MONTOYA Age: 79 years Sex: [...] mg, 6 mL, 112 mL/Hr, IV Piggyback, [id number] DuoNeb 0.5 mg-2.5 mg/3 mL inhalation solution: [...] Tab, Oral, Daily, 30 Tab, 0 Refill(s) Wamsutter 7.5 mg-325 mg oral tablet: 1 Tab, [...] mL 300 mg 6 mL, IV Piggyback, K88MQfo dorzolamide 2% ophth soln 10 mL 1 [...] Confirmed Coronary artery disease / SNOMED CT 6237558472 / Confirmed Stented coronary artery / SNOMED CT 5367503628 / Confirmed High blood pressure / SNOMED CT 01025004 / Confirmed Hyperlipidemia / SNOMED CT 28140731 / Confirmed COPD / SNOMED CT 10976154 / Confirmed GERD - Gastro-esophageal reflux disease / SNOMED CT 0917950339 / Confirmed Multiple renal cysts / SNOMED CT 083251633 / Confirmed Arthritis / SNOMED CT 8757814 / Confirmed Diabetes mellitus / SNOMED CT 696815538 / Confirmed Emphysema / SNOMED CT 586873143 / Confirmed Apnea, sleep / SNOMED CT 889396008 / Confirmed Hx of pulmonary embolus / SNOMED CT 759884929 / Confirmed Chronic anticoagulation / SNOMED CT 923570100 / Confirmed Atrial fibrillation with RVR / SNOMED CT 2818001112 / Confirmed Chest pain / SNOMED CT 39890950 / Complaint of History of obstructive sleep apnea / IMO 62661583 / Confirmed, Active Problems (20) Apnea, sleep [...] days based on INR Electronically signed by [facility], [facility] Conversion Scada Engineer Cerner at 02/04/2023 2:10 PM CDT documented in this encounter Plan of Treatment Not on file documented as of this encounter Visit Diagnoses Not on filedocumented in this encounter Care Teams Computerized Table Cutter Relationship Specialty Start Date End Date Jay Howell MD [address] [place] [phone] PCP - General Emergency Medicine 11/12/23 documented as of this encounter
--- OUTSIDE RECORDS SUMMARY | 2025-07-28 09:18 | XMS_ITS | Encounter Summary ---
Author Organization [employer] ([place], [place], [place], [place]) Address [address] [place] [address] Care Team Providers Care Drug And Alcohol Counselor Name Role Phone Jay Howell MD Primary Care Provider [phone] Encounter Details Date Type Department Care Team (Late st Contact Info) Description 12/14/2018 Transcribed Document [facility] [place] Family Medicine [address] [place] [address] ProviderJessie MD [address] [place], [place] [id number] Social History Tobacco Use Types Packs/Day Years Used Date Smoking Tobacco: Never Assessed Comments Unknown Sex and Gender Information Value Date Recorded Sex Assigned at Not on file Legal Sex Female 7:30 PM CDT Gender Identity Not on file Sexual Orientation Not on file documented as of this encounter Miscellaneous Notes * [employer]ner Conversion Note - Historical ProviderMD - 12/14/2018 4:49 PM ADOLESCENT COUNSELOR CR Chest 2 Vws Ordered: 12/12/2018 Auth (Verified) Reason for Exam: cp 12/13/2018 11:39 12/14/2018 16:49 (LESTER PILLAI PA) Reviewed by Provider, No further action required X1 12/14/2018 16:47 (FLORENTIN CAMARGO) No further action required Electronically signed by Sivan [facility] Conversion Clinical Project Coordinator Cerner at 02/04/2023 2:04 PM CDT documented in this encounter Plan of Treatment Not on file documented as of this encounter Visit Diagnoses Not on filedocumented in this encounter Care Teams Drug And Alcohol Counselor Relationship Specialty Start Date End Date Jay Howell MD [address] [place] [phone] PCP - General Emergency Medicine 11/12/23 documented as of this encounter
--- OUTSIDE RECORDS SUMMARY | 2025-07-28 09:18 | XMS_ITS | Encounter Summary ---
Author Organization [employer] ([place], [place], [place]) Address [address] [place] [address] Care Team Providers Care Chief Orthoptist Name Role Phone Jay Howell MD Primary Care Provider [phone] Encounter Details Date Type Department Care Team (Late st Contact Info) Description 12/21/2018 Transcribed Document [facility] [place] [address] [place] [address] ProviderJessie MD [address] [place] [address] Social History Tobacco Use Types Packs/Day Years Used Date Smoking Tobacco: Never Assessed Comments Unknown Sex and Gender Information Value Date Recorded Sex Assigned at Not on file Legal Sex Female 7:30 PM CDT Gender Identity Not on file Sexual Orientation Not on file documented as of this encounter Miscellaneous Notes * Cerner Conversion Note - Jessie Yuen MD - 12/21/2018 10:31 AM CUFFING MACHINE OPERATOR Discharge Instructions Entered On: 12/21/2018 10:31 EST [...] now and restart on 12-24-18 AUSTEN WEAVER, [facility] - 12/21/2018 10:33 EST Electronically signed by [facility], [facility] Conversion Sign Painter Helper Cerner at 02/04/2023 1:57 PM CDT documented in this encounter Plan of Treatment Not on file documented as of this encounter Visit Diagnoses Not on filedocumented in this encounter Care Teams Chief Orthoptist Relationship Specialty Start Date End Date Jay Howell MD [address] [place] [phone] PCP - General Emergency Medicine 11/12/23 documented as of this encounter
--- OUTSIDE RECORDS SUMMARY | 2025-07-28 09:18 | XMS_ITS | Encounter Summary ---
Author Organization [employer] ([place], [place], [place]) Address [address] [place] [address] Care Team Providers Care Hand I Blocker Name Role Phone Jay Howell MD Primary Care Provider [phone] Encounter Details Date Type Department Care Team (Late st Contact Info) Description 09/01/[address] [facility] [place] Family Medicine [address] [place] [address] ProviderJessie MD [address] [place] [address] Social History Tobacco Use Types Packs/Day Years Used Date Smoking Tobacco: Never Assessed Comments Unknown Sex and Gender Information Value Date Recorded Sex Assigned at Not on file Legal Sex Female 7:30 PM CDT Gender Identity Not on file Sexual Orientation Not on file documented as of this encounter Miscellaneous Notes * [employer]ner Conversion Note - Jessie ProviderMD - 09/01/2020 1:18 PM WOOD PATTERN MAKER On Going Discharge Planning Entered On: 09/01/2020 13:19 EST Performed On: 09/01/2020 13:18 EST by KAVITA PELLETIER RN-Manager Mental HealthCandle Cutter Progress Note Discharge Arrangements : Patient Post-Acute Information Patient Name: SKYLER MONTOYA Gender: Female : 38 Age: 79 Years [place] Referral(s): Service: Organization: Business Address: Phone Number: [address], [address] Discharge Options Discussed with Patient [...] Attend Multidisciplinary Rounds? : Yes KAVITA PELLETIER RN-Manager Mental Health - 09/01/2020 13:18 EST Electronically signed by [facility], [facility] Conversion Javascript Web Developer Cerner at 02/04/2023 2:00 PM CDT documented in this encounter Plan of Treatment Not on file documented as of this encounter Visit Diagnoses Not on filedocumented in this encounter Care Teams Hand I Blocker Relationship Specialty Start Date End Date Jay Howell MD [address] [place] [phone] PCP - General Emergency Medicine 11/12/23 documented as of this encounter
--- OUTSIDE RECORDS SUMMARY | 2025-07-28 09:18 | XMS_ITS | Encounter Summary ---
Author Organization [email or web address] ([place], [place], [place], [place]) Address [address] [place] [address] Care Team Providers Care Airplane Charter Clerk Name Role Phone Jay Howell MD Primary Care Provider [phone] Encounter Details Date Type Department Care Team (Late st Contact Info) Description 09/01/2020 Transcribed Document [facility] [place] Family Medicine [address] [place] [address] ProviderJessie MD [address] [place] [address] Social History Tobacco Use Types Packs/Day Years Used Date Smoking Tobacco: Never Assessed Comments Unknown Sex and Gender Information Value Date Recorded Sex Assigned at Not on file Legal Sex Female 7:30 PM CDT Gender Identity Not on file Sexual Orientation Not on file documented as of this encounter Miscellaneous Notes * Cerner Conversion Note - Jessie Yuen MD - 09/01/2020 2:19 PM COCOA BEAN ROASTER HELPER Patient Education Materials Follows: Negative Pressure Wound [...] bag. ??? Soap and water, or hand director of patient financial services. ??? Wound cleanser or salt-water solution (saline). [...] and water are not available, use hand director of patient financial services. 3. Set up a clean station for [...] and water are not available, use hand director of patient financial services. Clean your wound ??? Wear gloves, protective [...] and water are not available, use hand director of patient financial services. Apply new dressing ??? Wear gloves, protective [...] and water are not available, use hand director of patient financial services. 8. Turn the pump back on. The sponge dressing should collapse. Do not change the settings on the machine without talking to a health care provider. 9. Replace the container in the pump that collects fluid if it is full. Replace the container per the hair worker's instructions or at least once a week, [...] clamps are open. ??? Do not use joon-tnv-krpejhc medicated or antiseptic creams, sprays, liquids, or [...] 12/25/2012 Document Revised: 01/25/2020 Document Reviewed: 12/21/2019 [employer] Patient Education ? 2019 [employer] Hematology Hematoma A hematoma is a [...] health care provider. General instructions ??? Take gbvq-mui-kdnefzm and prescription medicines only as told by [...] 05/17/2005 Document Revised: 03/08/2019 Document Reviewed: 03/08/2019 [employer] Patient Education ? 2020 [employer] Infectious Disease Cellulitis, Adult Cellulitis is [...] these instructions at home: Medicines ??? Take tiwb-suy-wrcqanr and prescription medicines only as told by [...] 03/21/2009 Document Revised: 02/22/2019 Document Reviewed: 02/22/2019 [employer] Patient Education ? 2020 [employer] Pharmacology What You Need to Know [...] other medicines or supplements? Many prescription and aswb-lzh-njmskmo medicines can interfere with warfarin. Talk with your health care provider or your pharmacist before starting or stopping any new medicines. This includes bzyz-ipn-qwsmxsb vitamins, dietary supplements, herbal medicines, and pain medicines. Your warfarin dosage may need to be adjusted. ??? Some common duyk-bwk-ncmgzag medicines that may increase the risk of [...] that you work with a diet and food and nutrition services supervisor (dietitian). ??? Vitamin K decreases the effect [...] cooked. ??? Collards, raw or cooked. ??? [place]er chard, raw or cooked. ??? Mustard greens, raw or cooked. ??? Turnip greens, raw or cooked. ??? Parsley, raw. ??? Broccoli, cooked. ??? Noodles, eggs, and spinach, enriched. ??? [employer] sprouts, raw or cooked. ??? Beet greens, [...] diet. ??? You start or stop any yifo-qsj-wtlxuwz medicine, prescription medicine, or dietary supplement. ??? [...] 10/03/2006 Document Revised: 05/16/2018 Document Reviewed: 12/29/2016 [employer] Patient Education ? 2020 [employer]. Electronically signed by Gayle Finnegan Conversion Assistant Executive Housekeeper Cerner at 02/04/2023 2:13 PM CDT documented in this encounter Plan of Treatment Not on file documented as of this encounter Visit Diagnoses Not on filedocumented in this encounter Care Teams Airplane Charter Clerk Relationship Specialty Start Date End Date Jay Howell MD [address] [place] [phone] PCP - General Emergency Medicine 11/12/23 documented as of this encounter
--- OUTSIDE RECORDS SUMMARY | 2025-07-28 09:18 | XMS_ITS | Encounter Summary ---
Author Organization [employer] ([place], [place], [place], [place]) Address [address] [place] [address] Care Team Providers Care Administrative Services Assistant Name Role Phone Jay Howell MD Primary Care Provider [phone] Encounter Details Date Type Department Care Team (Late st Contact Info) Description 09/01/2020 Transcribed Document [facility] Family Medicine [address] [place] [address] ProviderJessie MD [address] [place] [address] Social History Tobacco Use Types Packs/Day Years Used Date Smoking Tobacco: Never Assessed Comments Unknown Sex and Gender Information Value Date Recorded Sex Assigned at Not on file Legal Sex Female 7:30 PM CDT Gender Identity Not on file Sexual Orientation Not on file documented as of this encounter Miscellaneous Notes * Cerner Conversion Note - Jessie Yuen MD - 09/01/2020 9:57 AM AGING ROOM HAND TARA CHEN, [address] [address] Re: SKYLER MONTOYA Date of Visit: 08/25/2020 [...] is strictly prohibited. Sincerely, KAREN PUTNAM [address] [facility] [address] [place] [id number] The following document(s) were included in the letter: September 01, 2020 09:27:18 EST - (09/01/2020) Discharge Note Electronically signed by Gayle Finnegan Conversion Mainframe Software Developer Cerner at 02/04/2023 2:03 PM CDT documented in this encounter Plan of Treatment Not on file documented as of this encounter Visit Diagnoses Not on filedocumented in this encounter Care Teams Administrative Services Assistant Relationship Specialty Start Date End Date Jay Howell MD [address] [place] [phone] PCP - General Emergency Medicine 11/12/23 documented as of this encounter
--- OUTSIDE RECORDS SUMMARY | 2025-07-28 09:18 | XMS_ITS | Encounter Summary ---
Author Organization [employer] ([place], [place], [place], [place]) Address [address] [place] [address] Care Team Providers Care Director Software Quality Assurance Name Role Phone Jay Howell MD Primary Care Provider [phone] Encounter Details Date Type Department Care Team (Late st Contact Info) Description 12/20/2018 Transcribed Document [facility] [place] [address] [place] [address] ProviderJessie MD [address] [place] [address] Social History Tobacco Use Types Packs/Day Years Used Date Smoking Tobacco: Never Assessed Comments Unknown Sex and Gender Information Value Date Recorded Sex Assigned at Not on file Legal Sex Female 7:30 PM CDT Gender Identity Not on file Sexual Orientation Not on file documented as of this encounter Miscellaneous Notes * Cerner Conversion Note - Historical ProviderMD - 12/20/2018 3:20 PM ADMISSIONS CLERK DATE OF PROCEDURE: LEFT HEART CATHETERIZATION, GRAFT ANGIOGRAPHY, ILIAC ARTERY ANGIOGRAPHY, PERCUTANEOUS INTERVENTION REPORT INDICATION: Lifestyle limiting exertional angina. REFERRING PHYSICIAN: Dr. Adry Dumas and Dr. Avtar Moeller. PROCEDURE: Standard left heart catheterization. TECHNIQUE: A 5/6-Bengali sheath placed in the right femoral artery. Right iliac artery angiography was performed using a JR4 diagnostic catheter due to difficulty in advancing safety J-wire across the proximal right common iliac artery. Angiography revealed patent iliac artery with a kink proximally. There is no pressure gradient across the kink. The short 6-Bengali sheath was switched out for a 25 cm 6-Bengali Arrow sheath with the sheath tip into the abdominal aorta for angiography and percutaneous intervention. JL4, JR4 diagnostic catheters were used for selective angiography of the pit river vessels. JR4 diagnostic catheter was used for selective angiography of the bypass grafts. A 6-Bengali pigtail catheter was advanced in the left [...] additional 162 mg of aspirin in the fence laborer. She was given Aggrastat bolus. Patient received intracoronary nitroglycerin to optimize coronary vessel sizing. Wood Pacheco M.D. Dict: 12/20/2018 15:20:17 Trans: 12/20/2018 18:55:03 CC1: Wood Pacheco M.D. CC2: Dr. Adry Dumas CC3: Dr. Avtar Moeller documented in this encounter Plan of Treatment Not on file documented as of this encounter Visit Diagnoses Not on filedocumented in this encounter Care Teams Director Software Quality Assurance Relationship Specialty Start Date End Date Jay Howell MD [address] [place] [phone] PCP - General Emergency Medicine 11/12/23 documented as of this encounter
--- OUTSIDE RECORDS SUMMARY | 2025-07-28 09:18 | XMS_ITS | Encounter Summary ---
Author Organization [employer] ([place], [place], [place], [place]) Address [address] [place] [address] Care Team Providers Care Substation Operator Conversion Name Role Phone Jay Howlel MD Primary Care Provider [phone] Encounter Details Date Type Department Care Team (Late st Contact Info) Description 09/01/2020 Transcribed Document [facility] [place] Family Medicine [address] [place] [address] ProviderJessie MD [address] [place] [address] Social History Tobacco Use Types Packs/Day Years Used Date Smoking Tobacco: Never Assessed Comments Unknown Sex and Gender Information Value Date Recorded Sex Assigned at Not on file Legal Sex Female 7:30 PM CDT Gender Identity Not on file Sexual Orientation Not on file documented as of this encounter Miscellaneous Notes * [employer]ner Conversion Note - Jessie Yuen MD - 09/01/2020 10:55 AM LICENSING DIRECTOR Patient: SKYLER MONTOYA Age: 79 years Sex: [...] level of muscle per surgery *Operation RIGHT INTEGRITY ASSESSOR access - ultrasound guided Aortogram with LEFT lower extremity run-off LEFT PT angioplasty ([id number] Nanocross) LEFT peroneal angioplasty ([id number] Nanocross) RIGHT INTEGRITY ASSESSOR closure (Angioseal) LEFT leg debridement 09/01/20 probable [...] Results Found (Past 24 Hours) MICRO: ACC: [id number] ORDER: Culture Anaerobic DATE: 08/26/2020 13:56 SOURCE: Surgical Swab SITE: Leg Lower L Reports Final 08/31/2020 07:45 No Anaerobic growth Pre 08/28/2020 07:01 No Anaerobic growth Pre 08/27/2020 07:47 Culture in progress == ACC: [id number] ORDER: Culture Blood DATE: 08/25/2020 05:01 SOURCE: Blood SITE: Reports Final 08/30/2020 06:01 No growth at 5 days. Pre 08/29/2020 06:01 No growth at 4 days. Pre 08/28/2020 06:01 No growth at 3 days. Pre 08/27/2020 06:01 No growth at 2 days. Pre 08/26/2020 06:01 No growth at 1 day. Pre 08/25/2020 23:02 Culture less than 24 Hrs old == ACC: [id number] ORDER: Culture Blood DATE: 08/25/2020 05:01 SOURCE: Blood SITE: Reports Final 08/30/2020 06:01 No growth at 5 days. Pre 08/29/2020 06:02 No growth at 4 days. Pre 08/28/2020 06:01 No growth at 3 days. Pre 08/27/2020 06:01 No growth at 2 days. Pre 08/26/2020 06:01 No growth at 1 day. Pre 08/25/2020 23:02 Culture less than 24 Hrs old == ACC: [id number] ORDER: Culture Wound and Stain DATE: 08/26/2020 15:23 SOURCE: Surgical Swab SITE: Leg Lower L Reports Final 08/29/2020 08:29 No growth Pre 08/27/2020 07:14 No growth GS 08/26/2020 18:13 Few White Blood Cells No organisms seen. == ACC: [id number] ORDER: Culture Wound and Stain DATE: 08/25/2020 05:00 SOURCE: Wound SITE: Leg Lower L Reports Final 08/28/2020 08:57 No growth Pre 08/26/2020 06:23 No growth GS 08/25/2020 07:26 No organisms seen. Few White Blood Cells Rare epithelial cells == ACC: [id number] ORDER: Culture AFB and Stain DATE: 08/26/2020 13:56 SOURCE: Surgical Swab SITE: Leg Lower L Reports AFS 08/27/2020 13:07 No Acid Fast Bacilli seen == ACC: [id number] ORDER: Culture Fungus DATE: 08/26/2020 13:56 SOURCE: [...] discharge; f/u with me wed in clinic documented in this encounter Plan of Treatment Not on file documented as of this encounter Visit Diagnoses Not on filedocumented in this encounter Care Teams Substation Operator Conversion Relationship Specialty Start Date End Date Jay Howell MD [address] [place] [phone] PCP - General Emergency Medicine 11/12/23 documented as of this encounter
--- OUTSIDE RECORDS SUMMARY | 2025-07-28 09:18 | XMS_ITS | Encounter Summary ---
Author Organization [employer] ([place], [place], [place], [place]) Address [address] [place] [address] Care Team Providers Care Underwriting Support Manager Name Role Phone Jay Howell MD Primary Care Provider [phone] Encounter Details Date Type Department Care Team (Late st Contact Info) Description 12/21/2018 Transcribed Document [facility] [place] [address] ProviderJessie MD [address] [place] [address] Social History Tobacco Use Types Packs/Day Years Used Date Smoking Tobacco: Never Assessed Comments Unknown Sex and Gender Information Value Date Recorded Sex Assigned at Not on file Legal Sex Female 7:30 PM CDT Gender Identity Not on file Sexual Orientation Not on file documented as of this encounter Miscellaneous Notes * Cerner Conversion Note - Jessie Yuen MD - 12/21/2018 11:50 AM MATURITY CHECKER [address] , [place], [place] [id number] Patient Copy Patient Information: Name: SKYLER MONTOYA Current Date: 12/21/2018 11:50:40 : 1940 Patient Address: [address] [place] [phone] Patient Attending Physician: FREDY YAÑEZ MD-CAR Primary Care Provider: TARA CHEN (REF), -MED Primary Care Provider Discharge Diagnosis: CAD (coronary artery disease); DM (diabetes mellitus); Exertional angina; HLD (hyperlipidemia); HTN (hypertension); Hx of CABG; DANTE (obstructive sleep apnea); Paroxysmal A-fib Weight on Admission: 158 lb, 0 oz Comment: Follow-up Instructions: With: Address: When: WOO JOHNSTON [address], [place] [address] Business (1) In 1 month 01/21/2019 With: Address: When: [facility] [address], [address] [place], [place] [id number] Business (1) Within 2 to 5 weeks [...] What foods can I eat? GrainsBreads, including Thai, white, jie, wheat, raisin, rye, oatmeal, and Maori. Tortillas that are neither fried nor made with lard or trans fat. Low-fat rolls, including hotdog and hamburger buns and Turkmen muffins. Biscuits. Muffins. Waffles. Pancakes. Light popcorn. Whole-grain cereals. Flatbread. [place] toast. Pretzels. Breadsticks. Rusks. Low-fat snacks. Low-fat [...] cottage cheese. Whole-milk cheeses, including blue (fredo), [place] Arm[place], Brie, Nate, Tongan, Havarti, Greek, cheddar, Camembert, and [place]. Whole or 2% milk that is liquid, [...] that has suet, meat fat, or shortening. [place] butter, hydrogenated oils, palm oil, coconut oil, [...] 12/25/2012 Document Revised: 03/10/2017 Document Reviewed: 02/04/2015 [employer](BHI) Interactive Patient Education ? 2017 [employer](BHI) Inc. Groin Site Care Refer to this [...] Document Reviewed: 11/05/2011 ExitCare? Patient Information ?2013 WSO2. Angiogram An angiogram, also called angiography, is [...] including vitamins, herbs, eye drops, creams, and lnmy-lqd-phgahko medicines. ??? Any problems you or family [...] 03/06/2014 Elsevier Interactive Patient Education ? 2017 [employer](BHI) Inc. Medication Leaflets: valsartan (elin LILY foster) [...] valsartan; ?? if you are on a nqq-mzmz-wnvb; ?? if you are dehydrated; or ?? [...] may report side effects to FDA at 9-566-MVV-8097. What other drugs will affect valsartan? Tell [...] may interact with valsartan, including prescription and vhee-cbd-dmyiyne medicines, vitamins, and herbal products. Not all [...] to ensure that the information provided by Nexant. ('Multum') is accurate, up-to-date, and complete, but no guarantee is made to that effect. Drug information contained herein may be time sensitive. Go Dishum information has been compiled for use by healthcare practitioners and consumers in the [place] and therefore Go Dishum does not warrant that uses outside of the [place] are appropriate, unless specifically indicated otherwise. Trove's drug information does not endorse drugs, diagnose patients or recommend therapy. Trove's drug information is an informational resource designed [...] effective or appropriate for any given patient. [facility] does not assume any responsibility for any aspect of healthcare administered with the aid of information [facility] provides. The information contained herein is not intended to cover all possible uses, directions, precautions, warnings, drug interactions, allergic reactions, or adverse effects. If you have questions about the drugs you are taking, check with your doctor, nurse or pharmacist. Copyright 9926-9200 [facility] [employer]visor[employer]STRVCT. Version: 16.05. Revision Date: 09/08/2016. hydralazine (bob [...] may report side effects to FDA at 2-170-IET-8850. What other drugs will affect hydralazine? Tell your doctor about all your current medicines and any you start or stop using, especially: ? diazoxide (an injectable blood pressure medication); or ?? an MAO inhibitor--isocarboxazid, linezolid, methylene blue injection, phenelzine, rasagiline, selegiline, tranylcypromine, and others. This list is not complete. Other drugs may interact with hydralazine, including prescription and kiui-nuw-ibpswmn medicines, vitamins, and herbal products. Not all [...] to ensure that the information provided by Nexant. ('Multum') is accurate, up-to-date, and complete, but no guarantee is made to that effect. Drug information contained herein may be time sensitive. Trove information has been compiled for use by healthcare practitioners and consumers in the [place] and therefore Trove does not warrant that uses outside of the [place] are appropriate, unless specifically indicated otherwise. Trove's drug information does not endorse drugs, diagnose patients or recommend therapy. Picplums drug information is an informational resource designed [...] effective or appropriate for any given patient. Trove does not assume any responsibility for any aspect of healthcare administered with the aid of information Trove provides. The information contained herein is not intended to cover all possible uses, directions, precautions, warnings, drug interactions, allergic reactions, or adverse effects. If you have questions about the drugs you are taking, check with your doctor, nurse or pharmacist. Copyright 4283-8840 Nexant. Version: 5.01. Revision Date: 10/26/2017. amlodipine (am [...] may report side effects to FDA at 3-763-XJJ-0487. What other drugs will affect amlodipine? Tell your doctor about all your current medicines and any you start or stop using, especially: ? nitroglycerin; ?? simvastatin (Zocor, Simcor, Vytorin); or ?? any other heart or blood pressure medications. This list is not complete. Other drugs may interact with amlodipine, including prescription and jvcw-eyc-pwvqjnb medicines, vitamins, and herbal products. Not all [...] to ensure that the information provided by Nexant. ('Multum') is accurate, up-to-date, and complete, but no guarantee is made to that effect. Drug information contained herein may be time sensitive. Trove information has been compiled for use by healthcare practitioners and consumers in the [place] and therefore Trove does not warrant that uses outside of the [place] are appropriate, unless specifically indicated otherwise. Picplums drug information does not endorse drugs, diagnose patients or recommend therapy. Picplums drug information is an informational resource designed [...] effective or appropriate for any given patient. Trove does not assume any responsibility for any aspect of healthcare administered with the aid of information Trove provides. The information contained herein is not intended to cover all possible uses, directions, precautions, warnings, drug interactions, allergic reactions, or adverse effects. If you have questions about the drugs you are taking, check with your doctor, nurse or pharmacist. Copyright 2249-5421 Nexant. Version: 14.. Revision Date: 01/24/2017. clopidogrel (kloe [...] may report side effects to FDA at 0-800-TLE-6102. What other drugs will affect clopidogrel? Certain other medicines may increase your risk of bleeding, including aspirin. Avoid taking aspirin unless your doctor tells you to. Tell your doctor about all your other medicines, especially: ? any other medicines to treat or prevent blood clots; ?? a stomach acid correctional supervisor lieutenant such as omeprazole, Nexium, or Prilosec; ?? an antidepressant; ?? an opioid medication; ?? a blood thinner--warfarin, Coumadin, Jantoven; or ?? NSAIDs (nonsteroidal anti-inflammatory drugs)--ibuprofen (Advil, Motrin), naproxen (Aleve), celecoxib, diclofenac, indomethacin, meloxicam, and others. This list is not complete. Other drugs may affect clopidogrel, including prescription and ibgq-yak-xenargr medicines, vitamins, and herbal products. Not all [...] to ensure that the information provided by Nexant. ('Multum') is accurate, up-to-date, and complete, but no guarantee is made to that effect. Drug information contained herein may be time sensitive. Trove information has been compiled for use by healthcare practitioners and consumers in the [place] and therefore Trove does not warrant that uses outside of the [place] are appropriate, unless specifically indicated otherwise. Trove's drug information does not endorse drugs, diagnose patients or recommend therapy. Picplums drug information is an informational resource designed [...] effective or appropriate for any given patient. Trove does not assume any responsibility for any aspect of healthcare administered with the aid of information Trove provides. The information contained herein is not intended to cover all possible uses, directions, precautions, warnings, drug interactions, allergic reactions, or adverse effects. If you have questions about the drugs you are taking, check with your doctor, nurse or pharmacist. Copyright 0062-4145 Nexant. Version: 15.01. Revision Date: 08/07/2018. ranolazine (ra [...] following drugs: ? clarithromycin; ?? nefazodone; ?? [place]'s wort; ?? antifungal medicine--itraconazole, ketoconazole; ?? HIV [...] may report side effects to FDA at 3-462-ONI-9352. What other drugs will affect ranolazine? Many [...] interact with ranolazine. This includes prescription and psbt-rjq-cvsyvde medicines, vitamins, and herbal products. Give a [...] to ensure that the information provided by Nexant. ('Multum') is accurate, up-to-date, and complete, but no guarantee is made to that effect. Drug information contained herein may be time sensitive. Trove information has been compiled for use by healthcare practitioners and consumers in the [place] and therefore Trove does not warrant that uses outside of the [place] are appropriate, unless specifically indicated otherwise. Trove's drug information does not endorse drugs, diagnose patients or recommend therapy. Picplums drug information is an informational resource designed [...] effective or appropriate for any given patient. Trove does not assume any responsibility for any aspect of healthcare administered with the aid of information Trove provides. The information contained herein is not intended to cover all possible uses, directions, precautions, warnings, drug interactions, allergic reactions, or adverse effects. If you have questions about the drugs you are taking, check with your doctor, nurse or pharmacist. Copyright 8943-7080 Nexant. Version: 11.. Revision Date: 12/04/2015. CIGARETTE SMOKING: The facts are clear, cigarette smoking will shorten your life. Smoking can cause many illnesses along the way. As a healthcare provider, we recommend that you stop smoking. Assistance with quitting is available by contacting 3-880-EGAV-NOW. This is a free resource providing counseling, [...] Be sure to sign up for the [employer] patient portal, which gives you 09/05 access to your medical information ??? including these discharge instructions ??? using your computer, smartphone, or tablet. Just go to IntelliBatt to get started. Questions? Call . [facility] would like to thank you for allowing us to assist you with your healthcare needs. MICHELE Skaggs JUDY D, (or service liaison representative) have received the above patient education materials/instructions and have verbalized understanding: Patient Signature _ Date/Time Patient Technical Sales Manager Signature (if needed) Date/Time Clinician/Hospital Technical Sales Manager Signature (if needed) Date/Time Electronically signed by [facility], [facility] Conversion Director Business Integration Cerner at 02/04/2023 1:57 PM CDT documented in this encounter Plan of Treatment Not on file documented as of this encounter Visit Diagnoses Not on filedocumented in this encounter Care Teams Underwriting Support Manager Relationship Specialty Start Date End Date Jay Howell MD [address] [place] [phone] PCP - General Emergency Medicine 11/12/23 documented as of this encounter
--- OUTSIDE RECORDS SUMMARY | 2025-07-28 09:18 | XMS_ITS | Encounter Summary ---
Author Organization [employer] ([place], [place], [place], [place]) Address [address] [place] [address] Care Team Providers Care Cotton Program Technician Name Role Phone Jay Howell MD Primary Care Provider [phone] Encounter Details Date Type Department Care Team (Late st Contact Info) Description 08/29/2020 Transcribed Document [facility] [place] [address] ProviderJessie MD [address] [place] [address] Social History Tobacco Use Types Packs/Day Years Used Date Smoking Tobacco: Never Assessed Comments Unknown Sex and Gender Information Value Date Recorded Sex Assigned at Not on file Legal Sex Female 7:30 PM CDT Gender Identity Not on file Sexual Orientation Not on file documented as of this encounter Miscellaneous Notes * Cerner Conversion Note - Historical ProviderMD - 08/29/2020 1:32 PM TEAROOM HOST/HOSTESS Discharge Summary, PT Entered On: 08/29/2020 13:33 [...] - 08/29/2020 13:32 EST Electronically signed by [facility] Conversion Police Captain Precinct Cerner at 02/04/2023 2:09 PM CDT documented in this encounter Plan of Treatment Not on file documented as of this encounter Visit Diagnoses Not on filedocumented in this encounter Care Teams Cotton Program Technician Relationship Specialty Start Date End Date Jay Howell MD [address] [place] [phone] PCP - General Emergency Medicine 11/12/23 documented as of this encounter
--- OUTSIDE RECORDS SUMMARY | 2025-07-28 09:18 | XMS_ITS | Encounter Summary ---
Author Organization [employer] ([place], [place], [place], [place]) Address [address] [place] [address] Care Team Providers Care Supervisor Post Wave Name Role Phone Jay Howell MD Primary Care Provider [phone] Encounter Details Date Type Department Care Team (Late st Contact Info) Description 09/01/2020 Transcribed Document [facility] Family Medicine [address] [place] [address] ProviderJessie MD [address] [place] [address] Social History Tobacco Use Types Packs/Day Years Used Date Smoking Tobacco: Never Assessed Comments Unknown Sex and Gender Information Value Date Recorded Sex Assigned at Not on file Legal Sex Female 7:30 PM CDT Gender Identity Not on file Sexual Orientation Not on file documented as of this encounter Miscellaneous Notes * Cerner Conversion Note - Historical ProviderMD - 09/01/2020 2:22 PM INTERMISSION COORDINATOR Stroke/Warfarin Instructions Entered On: 09/01/2020 14:22 EST Performed On: 09/01/2020 14:22 EST by Kailee Velasquez RN Stroke/Warfarin Instructions Stroke/TIA Discharge Ins : N/A Warfarin Discharge Ins : N/A Kailee Velasquez RN - 09/01/2020 14:22 EST documented in this encounter Plan of Treatment Not on file documented as of this encounter Visit Diagnoses Not on filedocumented in this encounter Care Teams Supervisor Post Wave Relationship Specialty Start Date End Date Jay Howell MD [address] [place] [phone] PCP - General Emergency Medicine 11/12/23 documented as of this encounter
--- OUTSIDE RECORDS SUMMARY | 2025-07-28 09:18 | XMS_ITS | Encounter Summary ---
Author Organization [employer] ([place], [place], [place], [place]) Address [address] [place] [address] Care Team Providers Care Lab Specialist Name Role Phone Jay Howell MD Primary Care Provider [phone] Encounter Details Date Type Department Care Team (Late st Contact Info) Description 09/01/2020 Transcribed Document [facility] Family Medicine [address] [place] [address] ProviderJessie MD [address] [place], [place] [phone] Social History Tobacco Use Types Packs/Day Years Used Date Smoking Tobacco: Never Assessed Comments Unknown Sex and Gender Information Value Date Recorded Sex Assigned at Not on file Legal Sex Female 7:30 PM CDT Gender Identity Not on file Sexual Orientation Not on file documented as of this encounter Miscellaneous Notes * Cerner Conversion Note - Jessei Yuen MD - 09/01/2020 9:47 AM CONTRACTS PARALEGAL [address] , [place], [place] [phone] Patient Copy Patient Information: Name: SKYLER MONTOYA Current Date: 09/01/2020 09:47:45 : 1940 Patient Address: [address] [place] [phone] Patient Attending Physician: SARAH CONTEH MD Primary Care Provider: TARA CHEN (REF), -MED Primary Care Provider Discharge Diagnosis: Cellulitis of leg; Hematoma of left lower leg Weight on Admission: 152 lb, 0 oz Comment: Follow-up Instructions: With: Address: When: KAVITHA HIDALGO [address] [facility], [address] [place], [place] [phone] Business (1) In 2 days 09/03/2020 Comments: needs apt scheduled prior to DC With: Address: When: TARA CHEN [address] [place] [address] Business (1) Within 2 days Comments: needs INR check We have held your Aspirin per vascular surgeon, Dr. Verde. With: Address: When: KAELA ORTAKALI [facility], [address] [place] [address] Business (1) 12:30 PM Comments: F/u w/ FERNIE With: Address: When: KAELA VERDE [facility], [address] [place], [place] [phone] Business (1) 12:45 PM Comments: F/u W with Irina Troy PA-C Discharge Instructions: Immunizations Documented During Stay: No Immunizations Found Heart Failure Discharge Instructions (if any): Stroke Related Discharge Instructions (if any): Warfarin Related Discharge Instructions (if any): Final Medication List: [facility], [address] [facility] [address] [place], [place] [id number], [phone] amLODIPine (Norvasc 10 mg oral tablet) 1 [...] At Bedtime as needed for anxiety/sleep. acetaminophen-hydrocodone (Mosby 7.5 mg-325 mg oral tablet) 1 Tablet(s) [...] these instructions at home: Medicines ??? Take bsdo-cxh-uodcmsw and prescription medicines only as told by [...] 03/21/2009 Document Revised: 02/22/2019 Document Reviewed: 02/22/2019 [employer] Patient Education ? 2019 Guruji. What You Need to Know About Warfarin [...] other medicines or supplements? Many prescription and gizc-wto-qabznny medicines can interfere with warfarin. Talk with your health care provider or your pharmacist before starting or stopping any new medicines. This includes wxik-faa-tpfnvas vitamins, dietary supplements, herbal medicines, and pain medicines. Your warfarin dosage may need to be adjusted. ??? Some common bdyt-oyn-hipegyu medicines that may increase the risk of [...] you work with a diet and nutrition manager (dietitian). ??? Vitamin K decreases the effect [...] cooked. ??? Collards, raw or cooked. ??? Peruvian chard, raw or cooked. ??? Mustard greens, raw or cooked. ??? Turnip greens, raw or cooked. ??? Parsley, raw. ??? Broccoli, cooked. ??? Noodles, eggs, and spinach, enriched. ??? Hollytree sprouts, raw or cooked. ??? Beet greens, [...] diet. ??? You start or stop any nfnk-dst-rmlhnrk medicine, prescription medicine, or dietary supplement. ??? [...] Reviewed: 12/29/2016 Elsevier Patient Education ? 2020 [employer] Inc. Hematoma A hematoma is a collection [...] health care provider. General instructions ??? Take dufe-wzw-nmbbgkg and prescription medicines only as told by [...] 05/17/2005 Document Revised: 03/08/2019 Document Reviewed: 03/08/2019 [employer] Patient Education ? 2020 [employer] Inc. CIGARETTE SMOKING: The facts are clear, cigarette smoking will shorten your life. Smoking can cause many illnesses along the way. As a healthcare provider, we recommend that you stop smoking. Assistance with quitting is available by contacting 9-972-VJLC-NOW. This is a free resource providing counseling, [...] Be sure to sign up for the [facility] patient portal, which gives you 09/05 access to your medical information ??? including these discharge instructions ??? using your computer, smartphone, or tablet. Just go to Ecoviate to get started. Questions? Call . [facility] would like to thank you for allowing us to assist you with your healthcare needs. MICHELE Skaggs JUDY D, (or personal banking representative) have received the above patient education materials/instructions and have verbalized understanding: Patient Signature _ Date/Time Patient Law Writer Signature (if needed) Date/Time Clinician/Hospital Law Writer Signature (if needed) Date/Time Electronically signed by Interface, [facility] Conversion Installer Metal Flooring Cerner at 02/04/2023 2:01 PM CDT documented in this encounter Plan of Treatment Not on file documented as of this encounter Visit Diagnoses Not on filedocumented in this encounter Care Teams Lab Specialist Relationship Specialty Start Date End Date Jay Howell MD [address] [place] [phone] PCP - General Emergency Medicine 11/12/23 documented as of this encounter
--- OUTSIDE RECORDS SUMMARY | 2025-07-28 09:18 | XMS_ITS | Encounter Summary ---
Author Organization [employer] ([place], [place], [place], [place]) Address [address] [place] [address] Care Team Providers Care Efficiency Miner Blasting Name Role Phone Jay Howell MD Primary Care Provider [phone] Encounter Details Date Type Department Care Team (Late st Contact Info) Description 09/22/2020 Transcribed Document [facility] [place] Family Medicine [address] [place] [address] ProviderJessie MD [address] [place] [address] Social History Tobacco Use Types Packs/Day Years Used Date Smoking Tobacco: Never Assessed Comments Unknown Sex and Gender Information Value Date Recorded Sex Assigned at Not on file Legal Sex Female 7:30 PM CDT Gender Identity Not on file Sexual Orientation Not on file documented as of this encounter Miscellaneous Notes * Cerner Conversion Note - Historical ProviderMD - 09/22/2020 4:56 PM FORM STRIPPER Patient: SKYLER MONTOYA Age: 79 Years Sex: [...] present starting at the level of the DOG FOOD SHREDDER OPERATOR. Non significant, non-flow restricting plaque noted at common femoral artery. 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 There is a significant (50-75%) stenosis of the distal DOG FOOD SHREDDER OPERATOR. Non significant, non-flow restricting plaque noted at DPA. DOG FOOD SHREDDER OPERATOR & DPA non compressible for FERNIE. TBI: Non compressible. LEFT: Abnormal arterial runoff disease present starting at the level of the DOG FOOD SHREDDER OPERATOR. Non significant, non-flow restricting plaque noted at common femoral artery. There is a severe (>75%) stenosis of the distal DOG FOOD SHREDDER OPERATOR. DOG FOOD SHREDDER OPERATOR & DPA non compressible for FERNIE. TBI: Non compressible. Electronically signed by Gayle Finnegan Conversion Machine Bander And Cellophaner Helper Cerner at 02/04/2023 2:07 PM CDT documented in this encounter Plan of Treatment Not on file documented as of this encounter Visit Diagnoses Not on filedocumented in this encounter Care Teams Efficiency Miner Blasting Relationship Specialty Start Date End Date Jay Howell MD [address] [place] [phone] PCP - General Emergency Medicine 11/12/23 documented as of this encounter
--- OUTSIDE RECORDS SUMMARY | 2025-07-28 09:18 | XMS_ITS | Encounter Summary ---
Author Organization [employer] ([place], [place], [place], [place]) Address [address] [place] [address] Care Team Providers Care Assembler Dc Field Ring Name Role Phone Jay Howell MD Primary Care Provider [phone] Encounter Details Date Type Department Care Team (Late st Contact Info) Description 09/01/2020 Transcribed Document [facility] [place] [address] [place] [address] ProviderJessie MD [address] [place] [address] Social History Tobacco Use Types Packs/Day Years Used Date Smoking Tobacco: Never Assessed Comments Unknown Sex and Gender Information Value Date Recorded Sex Assigned at Not on file Legal Sex Female 7:30 PM CDT Gender Identity Not on file Sexual Orientation Not on file documented as of this encounter Miscellaneous Notes * Cerner Conversion Note - Jessie Yuen MD - 09/01/2020 9:16 AM AQUATIC BIOLOGIST Patient: SKYLER MONTOYA Age: 79 years Sex: Female : 1940 Associated Diagnoses: None Author: Cheng Jennings, Deputy Probation Officer Cert Ms. Montoya is 79 yo female [...] filedocumented in this encounter Care Teams Assembler Dc Field Ring Relationship Specialty Start Date End Date Jay Howell MD [address] [place] [phone] PCP - General Emergency Medicine 11/12/23 documented as of this encounter
--- OUTSIDE RECORDS SUMMARY | 2025-07-28 09:18 | XMS_ITS | Encounter Summary ---
Author Organization [employer] ([place], [place], [place], [place]) Address [address] [place] [address] Care Team Providers Care Medical Scientific Officer Name Role Phone Jay Howell MD Primary Care Provider [phone] Encounter Details Date Type Department Care Team (Late st Contact Info) Description 12/20/[address] [facility] [place] Family Medicine [address] [place] [address] ProviderJessie MD [address] [place] [address] Social History Tobacco Use Types Packs/Day Years Used Date Smoking Tobacco: Never Assessed Comments Unknown Sex and Gender Information Value Date Recorded Sex Assigned at Not on file Legal Sex Female 7:30 PM CDT Gender Identity Not on file Sexual Orientation Not on file documented as of this encounter Miscellaneous Notes * Cerner Conversion Note - Jessie ProviderMD - 12/20/2018 9:47 PM REGIONAL OTR COMPANY DRIVER Rapid Response Team Documentation Entered On: 12/20/2018 [...] Admission Diagnosis : 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 EKG shows no ST elevation. Cardiac PUBLIC SAFETY POLICE notified. elevated blood pressure as well. nitro ordered and given. chest pain subsided. Patient Condition at End of Event : No S/S of Acute Distress Patient Disposition Post Event : No change in location/level of care Rapid Response Medical Scientific Officer #1 : LO THEODORE RN BENGE, MELISSA V, RN - 12/20/2018 22:51 EST Rapid Response Systems Assessment Oxygen Therapy Mode : Nasal cannula Oxygen Flow Rate : 2 Liter/Min Cardiovascular Symptoms : Chest discomfort at rest Heart Rhythm : Regular Cardiac Rhythm : Normal sinus rhythm LO THEODORE RN - 12/20/2018 22:51 EST Electronically signed by [facility], [facility] Conversion Atomic Welder Cerner at 02/04/2023 2:10 PM CDT documented in this encounter Plan of Treatment Not on file documented as of this encounter Visit Diagnoses Not on filedocumented in this encounter Care Teams Medical Scientific Officer Relationship Specialty Start Date End Date Jay Howell MD [address] [place] [phone] PCP - General Emergency Medicine 11/12/23 documented as of this encounter
--- OUTSIDE RECORDS SUMMARY | 2025-07-28 09:18 | XMS_ITS | Encounter Summary ---
Author Organization [employer] ([place], [place], [place], [place]) Address [address] [place] [address] Care Team Providers Care Tank Refinisher Name Role Phone Jay Howell MD Primary Care Provider [phone] Encounter Details Date Type Department Care Team (Late st Contact Info) Description 08/30/2020 Transcribed Document [facility] [place] Family [place] [address] [place] [address] ProviderJessie MD [address] [place] [address] Social History Tobacco Use Types Packs/Day Years Used Date Smoking Tobacco: Never Assessed Comments Unknown Sex and Gender Information Value Date Recorded Sex Assigned at Not on file Legal Sex Female 7:30 PM CDT Gender Identity Not on file Sexual Orientation Not on file documented as of this encounter Miscellaneous Notes * Cerner Conversion Note - Jessie Yuen MD - 08/30/2020 9:36 AM CLAY DRY PRESS HELPER Patient: SKYLER MONTOYA Age: 79 years [...] for this consult, Miladys Lopez, KellD PGY-1 Nurse Researcher Pager #: [phone] Extension #: [phone] Electronically signed by [facility], [facility] Conversion Wheel Cutter Cerner at 02/04/2023 2:03 PM CDT documented in this encounter Plan of Treatment Not on file documented as of this encounter Visit Diagnoses Not on filedocumented in this encounter Care Teams Tank Refinisher Relationship Specialty Start Date End Date Jay Howell MD [address] [place] [phone] PCP - General Emergency Medicine 11/12/23 documented as of this encounter
--- OUTSIDE RECORDS SUMMARY | 2025-07-28 09:19 | XMS_ITS | Encounter Summary ---
Author Organization [employer] ([place], [place], [place], [place]) Address [address] [place] [address] Care Team Providers Care Shellfish Harvester Name Role Phone Jay Howell MD Primary Care Provider [phone] Encounter Details Date Type Department Care Team (Late st Contact Info) Description 07/18/2021 Transcribed Document [facility] [place] Family [place] [facility] [place] [address] ProviderJessie MD [address] [place], [place] [address] Social History Tobacco Use Types Packs/Day Years [...] 3 - Urgent Tracking Group : [facility] ED CHETAN BRASWELL RN-Resource - [...] 15:12:21 EDT) Problems(Active) Apnea, sleep (SNOMED CT :123314487 ) Name of Problem: Apnea, sleep ; Recorder: JUAN LUIS GIL RN; Confirmation: Confirmed ; Classification: Medical ; Code: [id number] ; Contributor System: PowerChart ; Last Updated: 11/12/2014 10:12 EST ; Life Cycle Date: 11/12/2014 ; Life Cycle Status: Active ; Vocabulary: SNOMED CT Arthritis (SNOMED CT :9110313 ) Name of Problem: Arthritis ; Recorder: KENYON CHAMBERS RN; Confirmation: Confirmed ; Classification: Medical ; Code: 4817063 ; Contributor System: PowerChart ; Last Updated: 04/10/2016 8:04 EDT ; Life Cycle Date: 08/13/2013 ; Life Cycle Status: Active ; Vocabulary: SNOMED CT Atrial fibrillation with RVR (SNOMED CT :5861611124 ) Name of Problem: Atrial fibrillation with RVR ; Recorder: SANG RICO APRN; Confirmation: Confirmed ; Classification: Medical ; Code: [id number] ; Contributor System: PowerChart ; Last Updated: 04/10/2016 8:05 EDT ; Life Cycle Date: 04/10/2016 ; Life Cycle Status: Active ; Responsible Provider: SANG RICO APRN; Vocabulary: SNOMED CT Blood clot (SNOMED CT :184455026 ) Name of Problem: Blood clot ; Recorder: KENYON CHAMBERS RN; Confirmation: Confirmed ; Classification: Patient Stated ; Code: 553307258 ; Contributor System: PowerChart ; Last Updated: [...] Vocabulary: Patient Care Chest pain (SNOMED CT :06931029 ) Name of Problem: Chest pain ; Recorder: SANG RICO APRN; Confirmation: Complaint of ; Classification: Medical ; Code: 40813324 ; Contributor System: PowerChart ; Last Updated: 04/10/2016 8:05 EDT ; Life Cycle Status: Active ; Responsible Provider: SANG RICO APRN; Vocabulary: SNOMED CT Chronic anticoagulation (SNOMED CT :134985087 ) Name of Problem: Chronic anticoagulation ; Recorder: SANG RICO APRN; Confirmation: Confirmed ; Classification: Medical ; Code: 439871607 ; Contributor System: LitehouseChart ; Last Updated: 04/10/2016 8:05 EDT ; Life Cycle Date: 04/10/2016 ; Life Cycle Status: Active ; Responsible Provider: SANG RICO APRN; Vocabulary: SNOMED CT Clotting disorder (SNOMED CT :045360920 ) Name of Problem: Clotting disorder ; Recorder: KENYON CHAMBERS RN; Confirmation: Confirmed ; Classification: Patient Stated ; Code: 094079240 ; Contributor System: PowerChart ; Last Updated: 03/28/2014 19:29 EDT ; Life Cycle Date: 08/13/2013 ; Life Cycle Status: Active ; Vocabulary: SNOMED CT COPD (SNOMED CT :46677734 ) Name of Problem: COPD ; Recorder: KENYON CHAMBERS RN; Confirmation: Confirmed ; Classification: Medical ; Code: 96716841 ; Contributor System: PowerChart ; Last Updated: 04/10/2016 8:03 EDT ; Life Cycle Date: 08/13/2013 ; Life Cycle Status: Active ; Vocabulary: SNOMED CT Coronary artery disease (SNOMED CT :6007149870 ) Name of Problem: Coronary artery disease ; Recorder: KENYON CHAMBERS RN; Confirmation: Confirmed ; Classification: Medical ; Code: 2620716939 ; Contributor System: LitehouseChart ; Last Updated: 04/10/2016 8:03 EDT ; Life Cycle Date: 08/13/2013 ; Life Cycle Status: Active ; Vocabulary: SNOMED CT Diabetes mellitus (SNOMED CT :218591356 ) Name of Problem: Diabetes mellitus ; Recorder: KENYON CHAMBERS RN; Confirmation: Confirmed ; Classification: Medical ; Code: 902201714 ; Contributor System: LitehouseChart ; Last Updated: 04/10/2016 8:04 EDT ; Life Cycle Date: 08/13/2013 ; Life Cycle Status: Active ; Vocabulary: SNOMED CT Emphysema (SNOMED CT :337971890 ) Name of Problem: Emphysema ; Recorder: JUAN LUIS GIL RN; Confirmation: Confirmed ; Classification: Medical ; Code: 447913944 ; Contributor System: PowerChart ; Last Updated: 11/12/2014 10:11 EST ; Life Cycle Date: 11/12/2014 ; Life Cycle Status: Active ; Vocabulary: SNOMED CT GERD - Gastro-esophageal reflux disease (SNOMED CT :6292350034 ) Name of Problem: GERD - Gastro-esophageal reflux disease ; Recorder: KENYON CHAMBERS RN; Confirmation: Confirmed ; Classification: Medical ; Code: 0227401202 ; Contributor System: PowerChart ; Last Updated: [...] Patient Care High blood pressure (SNOMED CT :93848064 ) Name of Problem: High blood pressure ; Recorder: KENYON CHAMBERS RN; Confirmation: Confirmed ; Classification: Medical ; Code: 52003895 ; Contributor System: PowerChart ; Last Updated: 04/10/2016 8:03 EDT ; Life Cycle Date: 08/13/2013 ; Life Cycle Status: Active ; Vocabulary: SNOMED CT History of obstructive sleep apnea (IMO :36590278 ) Name of Problem: History of obstructive sleep apnea ; Recorder: SYSTEM, SYSTEM; Confirmation: Confirmed ; Classification: Medical ; Code: 79572901 ; Last Updated: 08/25/2020 18:21 EST ; Life Cycle Date: 08/25/2020 ; Life Cycle Status: Active ; Vocabulary: IMO Hx of pulmonary embolus (SNOMED CT :329398418 ) Name of Problem: Hx of pulmonary embolus ; Recorder: SANG RICO APRN; Confirmation: Confirmed ; Classification: Medical ; Code: 160262037 ; Contributor System: PowerChart ; Last Updated: 04/10/2016 8:05 EDT ; Life Cycle Date: 04/10/2016 ; Life Cycle Status: Active ; Responsible Provider: SANG RICO APRN; Vocabulary: SNOMED CT Hyperlipidemia (SNOMED CT :64184444 ) Name of Problem: Hyperlipidemia ; Recorder: KENYON CHAMBERS RN; Confirmation: Confirmed ; Classification: Medical ; Code: 88065175 ; Contributor System: PowerChart ; Last Updated: 04/10/2016 8:03 EDT ; Life Cycle Date: 08/13/2013 ; Life Cycle Status: Active ; Vocabulary: SNOMED CT Multiple renal cysts (SNOMED CT :408459965 ) Name of Problem: Multiple renal cysts ; Recorder: KENYON CHAMBERS RN; Confirmation: Confirmed ; Classification: Medical ; Code: 887099928 ; Contributor System: LitehouseChart ; Last Updated: 04/10/2016 8:04 EDT ; Life Cycle Date: 08/13/2013 ; Life Cycle Status: Active ; Vocabulary: SNOMED CT Stented coronary artery (SNOMED CT :8445232654 ) Name of Problem: Stented coronary artery ; Recorder: KENYON CHAMBERS RN; Confirmation: Confirmed ; Classification: Medical ; Code: 7219401059 ; Contributor System: LitehouseChart ; Last Updated: 04/10/2016 8:03 EDT ; Life Cycle Date: 08/13/2013 ; Life Cycle Status: Active ; Vocabulary: SNOMED CT Diagnoses(Active) Chest pain Date: 07/18/2021 ; Diagnosis Type: Reason For Visit ; Confirmation: Complaint of ; Clinical Dx: Chest pain ; Classification: Medical ; Clinical Service: Emergency medicine ; Code: PNED ; Probability: 0 ; Diagnosis Code: [id number] ED Height and Weight Height Source : Stated Height Entry Format : Craig Height, Feet : 5 ft(Converted to: 152 cm, 60 Inch) Height, Inches : 3 Inch(Converted to: 0 ft 3 Inch, 7.62 cm) Clinical Height : 160.02 cm Weight Source, ED : Critical estimated dosing weight Weight Entry Format : Craig Weight, Pounds : 154 lb Clinical Dosing Weight : 70 kg Body Surface Area (BSA) : 1.73 m2 Body Mass Index : 27.3 kg/m2 (HI) [place] Body Weight (IBW) : 52.02 kg CHETAN [...] of the form. Electronically signed by Sivan [facility] Conversion Saw Man Cerner at 02/04/2023 2:06 PM CDT documented in this encounter Plan of Treatment Not on file documented as of this encounter Visit Diagnoses Not on filedocumented in this encounter Care Teams Shellfish Harvester Relationship Specialty Start Date End Date Jay Howell MD [address] [place] [phone] PCP - General Emergency Medicine 11/12/23 documented as of this encounter
--- OUTSIDE RECORDS SUMMARY | 2025-07-28 09:19 | XMS_ITS | Encounter Summary ---
Author Organization [facility] Address [address] [place] [id number] Care Team Providers Care Senior C Developer Name Role Phone Jay Howell MD Primary Care Provider Encounter Details Date Type Department Care Team (Late st Contact Info) Description 07/16/2025 Telephone [facility] [address] [place] [address] [place] [address] Social History Tobacco Use Types Packs/Day Years [...] to sleep or slept in a senior living (including now)? No 08/06/2024 CAGE ASSESSMENT Answer [...] drink first t kathleen in the morning (EYE-INTAKE NURSE) to steady your nerves or to get [...] as of this encounter Care Teams Senior C Developer Relationship Specialty Start Date End Date Jay Howell MD [address] [place], [place] [address] PCP - General 03/08/21 documented as of this encounter
--- OUTSIDE RECORDS SUMMARY | 2025-07-28 09:19 | XMS_ITS | Encounter Summary ---
Author Organization [employer] ([place], [place], [place], [place]) Address [address] [place] [address] Care Team Providers Care Customer Support Coordinator Name Role Phone Jay Howell MD Primary Care Provider [phone] Encounter Details Date Type Department Care Team (Late st Contact Info) Description 03/19/2021 Transcribed Document [facility] [place] Family [place] [address] ProviderJessie MD [address] [place] [phone] Social History Tobacco Use Types Packs/Day Years [...] EDT Electronically signed by Gayle Finnegan Conversion Post Tronic Machine Operator Cerner at 02/04/2023 2:09 PM CDT documented in this encounter Plan of Treatment Not on file documented as of this encounter Visit Diagnoses Not on filedocumented in this encounter Care Teams Customer Support Coordinator Relationship Specialty Start Date End Date Jay Howell MD [address] [place] [phone] PCP - General Emergency Medicine 11/12/23 documented as of this encounter
--- OUTSIDE RECORDS SUMMARY | 2025-07-28 09:19 | XMS_ITS | Encounter Summary ---
Author Organization [email or web address] ([place], [place], [place], [place]) Address [address] [place] [address] Care Team Providers Care Rotary Driller Helper Name Role Phone Jay Howell MD Primary Care Provider [phone] Encounter Details Date Type Department Care Team (Late st Contact Info) Description 08/27/2020 Transcribed Document [facility] [place] Family [place] [address] [place] [address] ProviderJessie MD [address] [place], [place] [address] Social History Tobacco Use Types Packs/Day Years Used Date Smoking Tobacco: Never Assessed Comments Unknown Sex and Gender Information Value Date Recorded Sex Assigned at Not on file Legal Sex Female 7:30 PM CDT Gender Identity Not on file Sexual Orientation Not on file documented as of this encounter Miscellaneous Notes * Cerner Conversion Note - Historical ProviderMD - 08/27/2020 3:14 PM PREMISES TECHNICIAN Evaluation, Physical Therapy Entered On: 08/29/2020 12:09 EST Performed On: 08/29/2020 10:38 EST by ERIC [place], PT General Information, PT Therapy Diagnosis, PT : assessment for need for skilled PTx --- NONE at this time Onset of Problem, PT : 08/27/2020 EST Co-treated by, PT : Other: OTx Student General Information Comment, PT : 79 yo female adm to [facility] 08/25 with L LE Hematoma and [...] ALTHEA ERIC, PT - 08/29/2020 13:14 EST [place] PT Charges PT Eval Low Complexity : 1 ALTHEA ERIC, PT - 08/29/2020 13:14 EST Electronically signed by Sivan, [facility] Conversion Assisted Living Manager Cerner at 02/04/2023 1:59 PM CDT documented in this encounter Plan of Treatment Not on file documented as of this encounter Visit Diagnoses Not on filedocumented in this encounter Care Teams Rotary Driller Helper Relationship Specialty Start Date End Date Jay Howell MD [address] [place] [phone] PCP - General Emergency Medicine 11/12/23 documented as of this encounter
--- OUTSIDE RECORDS SUMMARY | 2025-07-28 09:19 | XMS_ITS | Encounter Summary ---
Author Organization [employer] ([place], [place], [place], [place]) Address [address] [place] [address] Care Team Providers Care Stave Saw Operator Name Role Phone Jay Howell MD Primary Care Provider [phone] Encounter Details Date Type Department Care Team (Late st Contact Info) Description 03/19/2021 Transcribed Document [place] [facility] [place] [facility] [place] [address] ProviderJessie MD [address] [place] [phone] Social History Tobacco Use Types Packs/Day Years [...] 2. Calcification of the vertebral origins with [id number] stenosis. 3. Extensive vascular calcification. 4. Severe centrilobular emphysema. 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 We [...] 03/19/2021 06:06 EDT Electronically signed by Sivan [facility] Conversion Radiology Transcriptionist Cerner at 02/04/2023 2:09 PM CDT documented in this encounter Plan of Treatment Not on file documented as of this encounter Visit Diagnoses Not on filedocumented in this encounter Care Teams Stave Saw Operator Relationship Specialty Start Date End Date Jay Howell MD [address] [place] [phone] PCP - General Emergency Medicine 11/12/23 documented as of this encounter
--- OUTSIDE RECORDS SUMMARY | 2025-07-28 09:19 | XMS_ITS | Encounter Summary ---
Author Organization [employer] ([place], [place], [place], [place]) Address [address] [place] [address] Care Team Providers Care Custom Studio Coordinator Name Role Phone Jay Howell MD Primary Care Provider [phone] Encounter Details Date Type Department Care Team (Late st Contact Info) Description 08/28/2020 Transcribed Document [facility] [place] [address] [place] [address] ProviderJessie MD [address] [place] [address] Social History Tobacco Use Types Packs/Day Years Used Date Smoking Tobacco: Never Assessed Comments Unknown Sex and Gender Information Value Date Recorded Sex Assigned at Not on file Legal Sex Female 7:30 PM CDT Gender Identity Not on file Sexual Orientation Not on file documented as of this encounter Miscellaneous Notes * Cerner Conversion Note - Historical ProviderMD - 08/28/2020 10:17 AM GREEN BUILDING ENGINEER Attempt to Treat, OT Entered On: 08/28/2020 [...] 08/28/2020 14:59 EST Electronically signed by Sivan [facility] Conversion Finance Consultant Cerner at 02/04/2023 1:59 PM CDT documented in this encounter Plan of Treatment Not on file documented as of this encounter Visit Diagnoses Not on filedocumented in this encounter Care Teams Custom Studio Coordinator Relationship Specialty Start Date End Date Jay Howell MD [address] [place] [phone] PCP - General Emergency Medicine 11/12/23 documented as of this encounter
--- OUTSIDE RECORDS SUMMARY | 2025-07-28 09:19 | XMS_ITS | Encounter Summary ---
Author Organization [employer] ([place], [place], [place], [place]) Address [address] [place] [address] Care Team Providers Care Steam Shovel Runner Name Role Phone Jay Howell MD Primary Care Provider [phone] Encounter Details Date Type Department Care Team (Late st Contact Info) Description 08/27/2020 Transcribed Document [facility] [place] Family Medicine [address] [place] [address] ProviderJessie MD [address] [place] [address] Social History Tobacco Use Types Packs/Day Years Used Date Smoking Tobacco: Never Assessed Comments Unknown Sex and Gender Information Value Date Recorded Sex Assigned at Not on file Legal Sex Female 7:30 PM CDT Gender Identity Not on file Sexual Orientation Not on file documented as of this encounter Miscellaneous Notes * Cerner Conversion Note - Historical ProviderMD - 08/27/2020 3:14 PM MEDICAL CERTIFICATION SPECIALIST Evaluation, Occupational Therapy Entered On: 08/29/2020 13:30 [...] BOCANEGRA STUDENTOCCUPATIONAL THERAPIST - 08/29/2020 13:40 EST Specialty Trimmer Goals, OT Grooming LTG Grid Goal #1 [...] BOCANEGRA STUDENT-OCCUPATIONAL THERAPIST - 08/29/2020 13:40 EST [employer] OT Charges OT Eval Moderate Complexity : 1 ANAY BOCANEGRA STUDENT-OCCUPATIONAL THERAPIST - 08/29/2020 13:19 EST documented in this encounter Plan of Treatment Not on file documented as of this encounter Visit Diagnoses Not on filedocumented in this encounter Care Teams Steam Shovel Runner Relationship Specialty Start Date End Date Jay Howell MD [address] [place] [phone] PCP - General Emergency Medicine 11/12/23 documented as of this encounter
--- OUTSIDE RECORDS SUMMARY | 2025-07-28 09:19 | XMS_ITS | Encounter Summary ---
Author Organization [employer] ([place], [place], [place], [place]) Address [address] [place] [address] Care Team Providers Care District Ranger Name Role Phone Jay Howell MD Primary Care Provider [phone] Encounter Details Date Type Department Care Team (Late st Contact Info) Description 12/12/2018 Transcribed Document [facility] [place] Family Medicine [address] [place] [address] ProviderJessie MD [address] [place] [address] Social History Tobacco Use Types Packs/Day Years Used Date Smoking Tobacco: Never Assessed Comments Unknown Sex and Gender Information Value Date Recorded Sex Assigned at Not on file Legal Sex Female 7:30 PM CDT Gender Identity Not on file Sexual Orientation Not on file documented as of this encounter Miscellaneous Notes * Cerner Conversion Note - Historical ProviderMD - 12/12/2018 8:58 PM USER EXPERIENCE ARCHITECT ED Triage Entered On: 12/12/2018 21:20 EST Performed On: 12/12/2018 21:18 EST by LUCINDA FOFANA RN ED Triage Across the Room Triage Date/Time : 12/12/2018 21:18 EST Chief Complaint : pt c/o mscp x 2 hours rad to neck & L arm. reports seen bt card in [place] for same earlier this week, reports she needs a cath LUCINDA FOFANA RN - 12/12/2018 21:18 EST DCP GENERIC CODE Tracking Acuity : 2 - Emergent Tracking Group : [facility] ED LUCINDA FOFANA RN - 12/12/2018 [...] 21:20:38 EST) Problems(Active) Apnea, sleep (SNOMED CT :858200866 ) Name of Problem: Apnea, sleep ; Recorder: JUAN LUIS GIL RN; Confirmation: Confirmed ; Classification: Medical ; Code: [id number] ; Contributor System: PowerChart ; Last Updated: 11/12/2014 10:12 EST ; Life Cycle Date: 11/12/2014 ; Life Cycle Status: Active ; Vocabulary: SNOMED CT Arthritis (SNOMED CT :8061272 ) Name of Problem: Arthritis ; Recorder: KENYON CHAMBERS RN; Confirmation: Confirmed ; Classification: Medical ; Code: 5615990 ; Contributor System: PowerChart ; Last Updated: 04/10/2016 8:04 EDT ; Life Cycle Date: 08/13/2013 ; Life Cycle Status: Active ; Vocabulary: SNOMED CT Atrial fibrillation with RVR (SNOMED CT :2400694075 ) Name of Problem: Atrial fibrillation with RVR ; Recorder: SANG RICO APR; Confirmation: Confirmed ; Classification: Medical ; Code: 2327569310 ; Contributor System: PowerChart ; Last Updated: 04/10/2016 8:05 EDT ; Life Cycle Date: 04/10/2016 ; Life Cycle Status: Active ; Responsible Provider: SANG RICO APR; Vocabulary: SNOMED CT Blood clot (SNOMED CT :040175097 ) Name of Problem: Blood clot ; Recorder: KENYON CHAMBERS RN; Confirmation: Confirmed ; Classification: Patient Stated ; Code: 156352414 ; Contributor System: PowerChart ; Last Updated: [...] Vocabulary: Patient Care Chest pain (SNOMED CT :19235496 ) Name of Problem: Chest pain ; Recorder: SANG RICO APR; Confirmation: Complaint of ; Classification: Medical ; Code: 96906969 ; Contributor System: PowerChart ; Last Updated: 04/10/2016 8:05 EDT ; Life Cycle Status: Active ; Responsible Provider: SANG RICO APR; Vocabulary: SNOMED CT Chronic anticoagulation (SNOMED CT :807986848 ) Name of Problem: Chronic anticoagulation ; Recorder: SANG RICO APR; Confirmation: Confirmed ; Classification: Medical ; Code: 761768445 ; Contributor System: PowerChart ; Last Updated: 04/10/2016 8:05 EDT ; Life Cycle Date: 04/10/2016 ; Life Cycle Status: Active ; Responsible Provider: SANG RICO APR; Vocabulary: SNOMED CT Clotting disorder (SNOMED CT :959879844 ) Name of Problem: Clotting disorder ; Recorder: KENYON CHAMBERS RN; Confirmation: Confirmed ; Classification: Patient Stated ; Code: 426214967 ; Contributor System: PowerChart ; Last Updated: 03/28/2014 19:29 EDT ; Life Cycle Date: 08/13/2013 ; Life Cycle Status: Active ; Vocabulary: SNOMED CT COPD (SNOMED CT :34299708 ) Name of Problem: COPD ; Recorder: KENYON CHAMBERS RN; Confirmation: Confirmed ; Classification: Medical ; Code: 99493069 ; Contributor System: PowerChart ; Last Updated: 04/10/2016 8:03 EDT ; Life Cycle Date: 08/13/2013 ; Life Cycle Status: Active ; Vocabulary: SNOMED CT Coronary artery disease (SNOMED CT :0584874274 ) Name of Problem: Coronary artery disease ; Recorder: KENYON CHAMBERS RN; Confirmation: Confirmed ; Classification: Medical ; Code: 2493718026 ; Contributor System: PowerChart ; Last Updated: 04/10/2016 8:03 EDT ; Life Cycle Date: 08/13/2013 ; Life Cycle Status: Active ; Vocabulary: SNOMED CT Diabetes mellitus (SNOMED CT :350014708 ) Name of Problem: Diabetes mellitus ; Recorder: KENYON CHAMBERS RN; Confirmation: Confirmed ; Classification: Medical ; Code: 566259859 ; Contributor System: PowerChart ; Last Updated: 04/10/2016 8:04 EDT ; Life Cycle Date: 08/13/2013 ; Life Cycle Status: Active ; Vocabulary: SNOMED CT Emphysema (SNOMED CT :037362401 ) Name of Problem: Emphysema ; Recorder: JUAN LUIS GIL RN; Confirmation: Confirmed ; Classification: Medical ; Code: 572050087 ; Contributor System: PowerChart ; Last Updated: 11/12/2014 10:11 EST ; Life Cycle Date: 11/12/2014 ; Life Cycle Status: Active ; Vocabulary: SNOMED CT GERD - Gastro-esophageal reflux disease (SNOMED CT :9931678735 ) Name of Problem: GERD - Gastro-esophageal reflux disease ; Recorder: KENYON CHAMBERS RN; Confirmation: Confirmed ; Classification: Medical ; Code: 8203374640 ; Contributor System: PowerChart ; Last Updated: [...] Patient Care High blood pressure (SNOMED CT :66149967 ) Name of Problem: High blood pressure ; Recorder: KENYON CHAMBERS RN; Confirmation: Confirmed ; Classification: Medical ; Code: 79522472 ; Contributor System: RigUpChart ; Last Updated: 04/10/2016 8:03 EDT ; Life Cycle Date: 08/13/2013 ; Life Cycle Status: Active ; Vocabulary: SNOMED CT Hx of pulmonary embolus (SNOMED CT :034499189 ) Name of Problem: Hx of pulmonary embolus ; Recorder: SANG RICO APR; Confirmation: Confirmed ; Classification: Medical ; Code: 085310763 ; Contributor System: PowerChart ; Last Updated: 04/10/2016 8:05 EDT ; Life Cycle Date: 04/10/2016 ; Life Cycle Status: Active ; Responsible Provider: SANG RICO APR; Vocabulary: SNOMED CT Hyperlipidemia (SNOMED CT :44953040 ) Name of Problem: Hyperlipidemia ; Recorder: KENYON CHAMBERS RN; Confirmation: Confirmed ; Classification: Medical ; Code: 58945815 ; Contributor System: PowerChart ; Last Updated: 04/10/2016 8:03 EDT ; Life Cycle Date: 08/13/2013 ; Life Cycle Status: Active ; Vocabulary: SNOMED CT Multiple renal cysts (SNOMED CT :363241822 ) Name of Problem: Multiple renal cysts ; Recorder: KENYON CHAMBERS RN; Confirmation: Confirmed ; Classification: Medical ; Code: 819422487 ; Contributor System: PowerChart ; Last Updated: 04/10/2016 8:04 EDT ; Life Cycle Date: 08/13/2013 ; Life Cycle Status: Active ; Vocabulary: SNOMED CT Stented coronary artery (SNOMED CT :1105375110 ) Name of Problem: Stented coronary artery ; Recorder: KENYON CHAMBERS RN; Confirmation: Confirmed ; Classification: Medical ; Code: 2626328235 ; Contributor System: PowerChart ; Last Updated: 04/10/2016 8:03 EDT ; Life Cycle Date: 08/13/2013 ; Life Cycle Status: Active ; Vocabulary: SNOMED CT UTI - Urinary tract infection (SNOMED CT :9702294927 ) Name of Problem: UTI - Urinary tract infection ; Recorder: KENYON CHAMBERS RN; Confirmation: Confirmed ; Classification: Medical ; Code: 9173993191 ; Contributor System: PowerChart ; Last Updated: 04/10/2016 8:04 EDT ; Life Cycle Date: 08/13/2013 ; Life Cycle Status: Active ; Vocabulary: SNOMED CT Diagnoses(Active) Chest pain Date: 12/12/2018 ; Diagnosis Type: Reason For Visit ; Confirmation: Complaint of ; Clinical Dx: Chest pain ; Classification: Medical ; Clinical Service: Emergency medicine ; Code: PNED ; Probability: 0 ; Diagnosis Code: [id number] ED Height and Weight Height Source : Stated Height Entry Format : [place] Height, Feet : 5 ft(Converted to: 152 cm, 60 Inch) Height, Inches : 3 Inch(Converted to: 0 ft 3 Inch, 7.62 cm) Clinical Height : 160.02 cm Weight Source, ED : Standing scale Weight Entry Format : [place] Weight, Pounds : 161.7 lb Clinical Dosing Weight : 73.5 kg Body Surface Area (BSA) : 1.77 m2 Body Mass Index : 28.7 kg/m2 (HI) [place] Body Weight (IBW) : 52.02 kg LUCINDA FOFANA RN - 12/12/2018 21:18 EST Electronically signed by Sivan, [facility] Conversion Health Services Director Cerner at 02/04/2023 1:58 PM CDT documented in this encounter Plan of Treatment Not on file documented as of this encounter Visit Diagnoses Not on filedocumented in this encounter Care Teams District Ranger Relationship Specialty Start Date End Date Jay Howell MD [address] [place] [phone] PCP - General Emergency Medicine 11/12/23 documented as of this encounter
--- OUTSIDE RECORDS SUMMARY | 2025-07-28 09:19 | XMS_ITS | Encounter Summary ---
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 SHE CAN FILL OUT THE SHARON FORM AT HER APPT IF THEY NEED ANYTHING OTHER THAN WHAT WE CAN SEE. THANKS. * Telephone Encounter - Radha Prince RegSched Rep - 07/02/2025 10:43 AM EDT Caller: Miladis Montoya Relationship: Self Best call back number: [phone] What form or medical record are you requesting: MEDICAL RECORDS. Who is requesting this form or medical record from you: DR FLOR LÓPEZ WITH [facility] IN [place], [place] How would you like to receive the form or medical records (pick-up, mail, fax): FAX If fax, what is the fax number: [phone] Timeframe paperwork needed: [place]E - BEFORE APPOINTMENT ON 07.10.25 Additional notes: PATIENT HAS APPOINTMENT WITH [place] [facility] ON 07.10.25 AND NEEDS TO HAVE MEDICAL RECORDS FROM [facility] SENT OVER. HOWEVER, [facility] NEEDS A MEDICAL RECORDS REQUEST FORM FROM THE OFFICE BEFORE THEY ARE WILLING TO FAX THEM TO US. documented in this encounter Plan of Treatment Not on file documented as of this encounter Visit Diagnoses Not on filedocumented in this encounter Care Teams Dungeon Master Relationship Specialty Start Date End Date Jay Howell MD [address] [place] [address] PCP - General Emergency Medicine 04/28/23 documented as of this encounter
--- OUTSIDE RECORDS SUMMARY | 2025-07-28 09:19 | XMS_ITS | Encounter Summary ---
Author Organization [employer] ([place], [place], [place], [place]) Address [address] [place] [address] Care Team Providers Care Bulk Clerk Name Role Phone Jay Howell MD Primary Care Provider [phone] Encounter Details Date Type Department Care Team (Late st Contact Info) Description 08/28/2020 Transcribed Document [facility] [place] [address] [place] [address] ProviderJessie MD [address] [place] [address] Social History Tobacco Use Types Packs/Day Years Used Date Smoking Tobacco: Never Assessed Comments Unknown Sex and Gender Information Value Date Recorded Sex Assigned at Not on file Legal Sex Female 7:30 PM CDT Gender Identity Not on file Sexual Orientation Not on file documented as of this encounter Miscellaneous Notes * Cerner Conversion Note - Historical MD Alpa - 08/28/2020 9:30 AM COOK VACUUM KETTLE Installation Tech Inpatient Document Entered On: 08/28/2020 11:43 EST Performed On: 08/28/2020 11:40 EST by KARRIE FERNANDES Rn-Educator Diabetes Installation Tech Inpatient Document Reason for Installation Tech Visit : Physician order Endocrine/Metabolic History : [...] 08/28/2020 11:40 EST Electronically signed by Sivan [facility] Conversion Psychology Technician Cerner at 02/04/2023 2:21 PM CDT documented in this encounter Plan of Treatment Not on file documented as of this encounter Visit Diagnoses Not on filedocumented in this encounter Care Teams Bulk Clerk Relationship Specialty Start Date End Date Jay Howell MD [address] [place] [phone] PCP - General Emergency Medicine 11/12/23 documented as of this encounter
--- OUTSIDE RECORDS SUMMARY | 2025-07-28 09:19 | XMS_ITS | Encounter Summary ---
Author Organization [employer] ([place], [place], [place], [place]) Address [address] [place] [address] Care Team Providers Care Mental Health Practitioner Name Role Phone Jay Howell MD Primary Care Provider [phone] Encounter Details Date Type Department Care Team (Late st Contact Info) Description 08/28/2020 Transcribed Document [facility] [place] Family Medicine [address] [place] [address] ProviderJessie MD [address] [place] [address] Social History Tobacco Use Types Packs/Day Years Used Date Smoking Tobacco: Never Assessed Comments Unknown Sex and Gender Information Value Date Recorded Sex Assigned at Not on file Legal Sex Female 7:30 PM CDT Gender Identity Not on file Sexual Orientation Not on file documented as of this encounter Miscellaneous Notes * Cerner Conversion Note - Jessie Yuen MD - 08/28/2020 11:43 AM COMPUTER SCIENCE TEACHER Patient: SKYLER MONTOYA Age: 79 years Sex: Female : 1940 Associated Diagnoses: None Author: SLICK BRADLEY, [facility] Ms. Montoya is 79 yo female [...] Slick Bradley, Dana Electronically signed by Sivan [facility] Conversion Coffee Roaster Cerner at 02/04/2023 1:57 PM CDT documented in this encounter Plan of Treatment Not on file documented as of this encounter Visit Diagnoses Not on filedocumented in this encounter Care Teams Mental Health Practitioner Relationship Specialty Start Date End Date Jay Howell MD [address] [place] [phone] PCP - General Emergency Medicine 11/12/23 documented as of this encounter
--- OUTSIDE RECORDS SUMMARY | 2025-07-28 09:19 | XMS_ITS | Encounter Summary ---
Author Organization [employer] ([place], [place], [place], [place]) Address [address] [place] [address] Care Team Providers Care Cloth Covered Helmet Puller Name Role Phone Jay Howell MD Primary Care Provider [phone] Encounter Details Date Type Department Care Team (Late st Contact Info) Description 03/19/2021 Transcribed Document [facility] [place] Family Medicine [address] [place] [address] ProviderJessie MD [address] [place] [phone] Social History Tobacco Use Types Packs/Day Years [...] 2. Calcification of the vertebral origins with [id number] stenosis. 3. Extensive vascular calcification. 4. Severe [...] up with hand surgery next week, her block sealer in 2-4 weeks and neurologist 4-8 weeks. [...] Comer or An[facility]ell on March 23 or [facility] - Within 6 weeks Discharge Medications (14) [...] 03/17/21 10:56:00 EDT, Cardiac Diet, 60 gm carbs:7113-1800 george, Isolation: Standard Precautions, Instructions: Diabetic Diet Patient Discharge Summary Orders Discharge Follow Up Instructions: Follow Up Instructions: f/u Dr. Comer or Anabell ( Hand Surgery) on d/c. [phone] Activity: Discharge Activity: Activity as tolerated Diet: [...] filedocumented in this encounter Care Teams Cloth Covered Helmet Puller Relationship Specialty Start Date End Date Jay Howell MD [address] [place] [phone] PCP - General Emergency Medicine 11/12/23 documented as of this encounter
--- OUTSIDE RECORDS SUMMARY | 2025-07-28 09:19 | XMS_ITS | Encounter Summary ---
Author Organization [employer] ([place], [place], [place], [place]) Address [address] [place] [address] Care Team Providers Care Uniforms Sales Representative Name Role Phone Jay Howell MD Primary Care Provider [phone] Encounter Details Date Type Department Care Team (Late st Contact Info) Description 08/28/2020 Transcribed Document [facility] [place] Family Medicine [address] [place] [address] ProviderJessie MD [address] [place], [place] [address] Social History Tobacco Use Types Packs/Day Years Used Date Smoking Tobacco: Never Assessed Comments Unknown Sex and Gender Information Value Date Recorded Sex Assigned at Not on file Legal Sex Female 7:30 PM CDT Gender Identity Not on file Sexual Orientation Not on file documented as of this encounter Miscellaneous Notes * Cerner Conversion Note - Historical ProviderMD - 08/28/2020 9:22 AM AUTO ADJUDICATION SPECIALIST Patient: SKYLER MONTOYA Age: 79 Years Sex: [...] (High) 08/28/2020 07:35 EST Electronically signed by [facility], [facility] Conversion Glove Parts Inspector Cerner at 02/04/2023 2:12 PM CDT documented in this encounter Plan of Treatment Not on file documented as of this encounter Visit Diagnoses Not on filedocumented in this encounter Care Teams Uniforms Sales Representative Relationship Specialty Start Date End Date Jay Howell MD [address] [place] [phone] PCP - General Emergency Medicine 11/12/23 documented as of this encounter
--- OUTSIDE RECORDS SUMMARY | 2025-07-28 09:19 | XMS_ITS | Encounter Summary ---
Author Organization [employer] ([place], [place], [place], [place]) Address [address] [place] [address] Care Team Providers Care Extrusion Die Coordinator Name Role Phone Jay Howell MD Primary Care Provider [phone] Encounter Details Date Type Department Care Team (Late st Contact Info) Description 07/18/2021 Transcribed Document [facility] [place] Family Medicine [address] [place] [address] ProviderJessie MD [address] [place], [place] [address] Social History Tobacco Use Types Packs/Day Years [...] on filedocumented in this encounter Care Teams Extrusion Die Coordinator Relationship Specialty Start Date End Date Jay Howell MD [address] [place] [phone] PCP - General Emergency Medicine 11/12/23 documented as of this encounter
--- OUTSIDE RECORDS SUMMARY | 2025-07-28 09:19 | XMS_ITS | Encounter Summary ---
Author Organization [employer] ([place], [place], [place], [place]) Address [address] [place] [address] Care Team Providers Care Pit Furnace Operator Name Role Phone Jay Howell MD Primary Care Provider [phone] Encounter Details Date Type Department Care Team (Late st Contact Info) Description 07/18/2021 Transcribed Document [facility] [place] [address] [place] [address] ProviderJessie MD [address] [place] [phone] Social History Tobacco Use Types Packs/Day Years [...] on filedocumented in this encounter Care Teams Pit Furnace Operator Relationship Specialty Start Date End Date Jay Howell MD [address] [place] [phone] PCP - General Emergency Medicine 11/12/23 documented as of this encounter
--- OUTSIDE RECORDS SUMMARY | 2025-07-28 09:19 | XMS_ITS | Encounter Summary ---
Author Organization [employer] ([place], [place], [place], [place]) Address [address] [place] [address] Care Team Providers Care Survey Research Center Director Name Role Phone Jay Howell MD Primary Care Provider [phone] Encounter Details Date Type Department Care Team (Late st Contact Info) Description 03/19/2021 Transcribed Document [facility] [place] Family Medicine [address] [place] [address] ProviderJessie MD [address] [place] [address] Social History Tobacco Use Types Packs/Day Years [...] filedocumented in this encounter Care Teams Survey Research Center Director Relationship Specialty Start Date End Date Jay Howell MD [address] [place] [phone] PCP - General Emergency Medicine 11/12/23 documented as of this encounter
--- OUTSIDE RECORDS SUMMARY | 2025-07-28 09:19 | XMS_ITS | Encounter Summary ---
Author Organization [employer] ([place], [place], [place], [place]) Address [address] [place] [address] Care Team Providers Care Fur Weigher Name Role Phone Jay Howell MD Primary Care Provider [phone] Encounter Details Date Type Department Care Team (Late st Contact Info) Description 03/19/2021 Transcribed Document [facility] [place] Family Medicine [address] [place] [address] ProviderJessie MD [address] [place] [phone] Social History Tobacco Use Types Packs/Day Years [...] 03/19/2021 15:48 EDT by Krystina Giang V, Cyber Security Instructor Mmd Unit Teacher Final Discharge Planning Discharge Arrangements : Patient [...] : Yes Discharge To Care Management : Home/Residential/Residential or Self Care -01 Krystina Giang V, Cyber Security Instructor [facility] [place] 03/19/2021 15:48 EDT Final Narrative Note Final Narrative Note : DC home with spouse. Follow up with outpatient Physical therapy in home town. IM signed. Krystina Giang V Cyber Security Instructor [facility] - 03/19/2021 15:48 EDT Electronically signed by [facility], [facility] Conversion Hosiery Knitter Cerner at 02/04/2023 2:08 PM CDT documented in this encounter Plan of Treatment Not on file documented as of this encounter Visit Diagnoses Not on filedocumented in this encounter Care Teams Fur Weigher Relationship Specialty Start Date End Date Jay Howell MD [address] [place] [phone] PCP - General Emergency Medicine 11/12/23 documented as of this encounter
--- OUTSIDE RECORDS SUMMARY | 2025-07-28 09:19 | XMS_ITS | Encounter Summary ---
Author Organization [employer] ([place], [place], [place], [place]) Address [address] [place] [address] Care Team Providers Care Cream Dumper Name Role Phone Jay Howell MD Primary Care Provider [phone] Encounter Details Date Type Department Care Team (Late st Contact Info) Description 07/18/2021 Transcribed Document [facility] [place] [address] [place] [address] ProviderJessie MD [address] [place] [address] Social History Tobacco Use Types Packs/Day Years [...] 06/13/2020 8:52 EVA LAWS RN PCI w/ [place] stent to D1 Coronary artery bypass graft ([id number]) in 1992 at 52 Years. femur repair. Appendectomy (030025016). uterine suspension. Hysterectomy (892547799). back surgury. Cholecystectomy (65162839). Hip replacement (0199184545). cataract surgury.. Family history: Cardiomyopathy Child Stroke [...] EDT Height Source Stated Height Entry Format [place] Height/Length, MEXICAN (ft) 5 ft Height/Length MEXICAN 3 Inch CLINICALHEIGHT 160.02 cm Paulina Body Weight 52.02 kg Weight Source, ED Critical estimated dosing weight Weight Entry Format [place] Weight Serbian lb 154 lb CLINICALWEIGHT 70 kg Body [...] C-SSRS: ED Clinical Reconciliation: ED Isolation: ED staple side laster: Lipase Level: PT/INR Prothrombin Time: PTT: ProBNP: [...] normal IL & QRS intervals, EP Interp. laboratory monitor: Normal sinus rhythm. Results review: All [...] % 30.3 % Lymph # 1.46 x10(3)/uL [place] % 10.4 % HI [place] # 0.50 K/uL Eos % 0.0 % Eos # 0.00 x10(3)/uL Baso % 0.4 % Baso # 0.02 x10(3)/uL Slide Review No IG# 0.03 x10(3)/uL IG% 0.60 % PT 39.6 Second(s) HI INR 4.1 HI PTT 44.9 Second(s) HI . Radiology results: Radiology Results (Last 48 hours) [id number] -- 07/18/2021 15:00 CR Chest 1 Vw [...] of instructions. Notes: I certify that the MLP/PATIENT RELATIONS REPRESENTATIVE performed the services as delegated. . documented in this encounter Plan of Treatment Not on file documented as of this encounter Visit Diagnoses Not on filedocumented in this encounter Care Teams Cream Dumper Relationship Specialty Start Date End Date Jay Howell MD [address] [place] [phone] PCP - General Emergency Medicine 11/12/23 documented as of this encounter
--- OUTSIDE RECORDS SUMMARY | 2025-07-28 09:19 | XMS_ITS | Encounter Summary ---
Author Organization [employer] ([place], [place], [place], [place]) Address [address] [place] [address] Care Team Providers Care Internal Control Consultant Name Role Phone Jay Howell MD Primary Care Provider [phone] Encounter Details Date Type Department Care Team (Late st Contact Info) Description 08/27/2020 Transcribed Document [facility] [place] Family Medicine [address] [place] [address] ProviderJessie MD [address] [place] [address] Social History Tobacco Use Types Packs/Day Years Used Date Smoking Tobacco: Never Assessed Comments Unknown Sex and Gender Information Value Date Recorded Sex Assigned at Not on file Legal Sex Female 7:30 PM CDT Gender Identity Not on file Sexual Orientation Not on file documented as of this encounter Miscellaneous Notes * Cerner Conversion Note - Historical ProviderMD - 08/27/2020 2:40 PM KNITTING MACHINE FIXER HEAD WOCN Inpatient Documentation Entered On: 08/27/2020 14:42 [...] Past Medical History/Comorbidities : *Operation 08/26 RIGHT SUPERVISOR BOTTLE MACHINES access - ultrasound guided Aortogram with LEFT lower extremity run-off LEFT PT angioplasty (2.5-9q115tm Nanoc[employer]) LEFT peroneal angioplasty (2.5-7c071ay Nanocross) RIGHT SUPERVISOR BOTTLE MACHINES closure (Angioseal) LEFT leg debridement WOCN Assessment [...] Ulcer WOCN Wound Pressure Ulcer Documentation : Unqzwrcgi-Jntknd-Fhwp Abnormality: Leg Left Lower, Anterior on 08/27/2020 14:38 by Sujata Mckee Rn-Enterostomal I/W/A Present on Admission to Hospital: Yes I/W/A Type: Other: a/p debridement I/W/A Dressing Status: Moist I/W/A Dressing Activity: Assessed, Dressing changed I/W/A Wound Date of Dressing Change: :[id number]:0.911389:0:0 I/W/A Wound Bed Description: Full-thickness I/W/A Bed [...] Initial set-up application NPWT Inpatient Start Date: :[id number]:0.186200:0:0 NPWT Device Used: Renasys Type of Foam/Gauze Applied: Black Foam Number of Black Foam Gauze Applied: 1 Number of TRAC Pads Applied: 1 NPWT Pressure: Continuous NPWT Pressure Settin NPWT Canister Changed: Yes I/W/A Incision/Wound Healing: Initial WOCN Ostomy Documentation : No ostomy assessments reported. Sujata Mckee Rn-Enterostomal - 08/27/2020 14:40 EST Electronically signed by Sivan [facility] Conversion Advertising Traffic Manager Cerner at 02/04/2023 1:56 PM CDT documented in this encounter Plan of Treatment Not on file documented as of this encounter Visit Diagnoses Not on filedocumented in this encounter Care Teams Internal Control Consultant Relationship Specialty Start Date End Date Jay Howell MD [address] [place] [phone] PCP - General Emergency Medicine 11/12/23 documented as of this encounter
--- OUTSIDE RECORDS SUMMARY | 2025-07-28 09:19 | XMS_ITS | Encounter Summary ---
Author Organization [employer] ([place], [place], [place], [place]) Address [address] [place] [address] Care Team Providers Care Sewing Machine Operator Floorperson Name Role Phone Jay Howell MD Primary Care Provider [phone] Encounter Details Date Type Department Care Team (Late st Contact Info) Description 07/18/2021 Transcribed Document [facility] [place] [address] [place] [address] ProviderJessie MD [address] [place], [place] [id number] Social History Tobacco Use Types Packs/Day Years [...] Yuen MD - 07/18/2021 8:22 PM CD[place] [address] SKYLER MONTOYA :1940 Visit Time:07/18/2021 Your Visit [...] different. Where: [address] [place], [place] [address]- Business (1) Allergies Macrodantin morphine (rash, rash) [...] range between ( 0.0 and 7.0 ) [place] #: 0.50 K/uL -- Normal range between ( 0.16 and 1.00 ) Eos #: 0.00 x10(3)/uL -- Normal range between ( 0.00 and 0.80 ) [place] %: 10.4 % -- Normal range between [...] these instructions at home: Medicines ??? Take wraz-zws-nrknmzb and prescription medicines only as told by [...] provider. Document Revised: 04/05/2019 Document Reviewed: 04/05/2019 [employer] Patient Education ?? 2020 [employer]. Emergency Awareness and Preventative Care STROKE is [...] Assistance with quitting is available by contacting 2-339-RMSB-NOW. This is a free resource providing counseling, [...] was given the opportunity to ask questions. Patient/Jet Piercer Operator Name: Patient/Jet Piercer Operator Signature: Relationship to Patient: Clinician/Hospital Jet Piercer Operator Signature: Please Provide a Telephone Number Where You Can Be Reached: Is it Permissible To Leave a Message? Date: documented in this encounter Plan of Treatment Not on file documented as of this encounter Visit Diagnoses Not on filedocumented in this encounter Care Teams Sewing Machine Operator Floorperson Relationship Specialty Start Date End Date Jay Howell MD [address] [place] [phone] PCP - General Emergency Medicine 11/12/23 documented as of this encounter
--- OUTSIDE RECORDS SUMMARY | 2025-07-28 09:19 | XMS_ITS | Encounter Summary ---
Author Organization [employer] ([place], [place], [place], [place]) Address [address] [place] [address] Care Team Providers Care Finisher Machine Name Role Phone Jay Howell MD Primary Care Provider [phone] Encounter Details Date Type Department Care Team (Late st Contact Info) Description 08/28/2020 Transcribed Document [facility] [place] [address] [place] [address] ProviderJessie MD [address] [place], [place] [address] Social History Tobacco Use Types Packs/Day Years Used Date Smoking Tobacco: Never Assessed Comments Unknown Sex and Gender Information Value Date Recorded Sex Assigned at Not on file Legal Sex Female 7:30 PM CDT Gender Identity Not on file Sexual Orientation Not on file documented as of this encounter Miscellaneous Notes * Cerner Conversion Note - Historical ProviderMD - 08/28/2020 5:00 PM FAMILY SPECIALIST Chart Check - Review Order Profile Entered On: 08/28/2020 18:04 EST Performed On: 08/28/2020 17:00 EST by Jose L Jones RN Chart Check All Active Orders Reviewed : Yes Jose L Jones RN - 08/28/2020 18:04 EST Electronically signed by Sivan [facility] Conversion Child Protection Specialist Cerner at 02/04/2023 2:20 PM CDT documented in this encounter Plan of Treatment Not on file documented as of this encounter Visit Diagnoses Not on filedocumented in this encounter Care Teams Finisher Machine Relationship Specialty Start Date End Date Jay Howell MD [address] [place] [phone] PCP - General Emergency Medicine 11/12/23 documented as of this encounter
--- OUTSIDE RECORDS SUMMARY | 2025-07-28 09:19 | XMS_ITS | Encounter Summary ---
Author Organization [email or web address] ([place], [place], [place], [place]) Address [address] [place] [address] Care Team Providers Care Salesperson Parts Name Role Phone Jay Howell MD Primary Care Provider [phone] Encounter Details Date Type Department Care Team (Late st Contact Info) Description 07/18/2021 Transcribed Document [facility] [place] [address] ProviderJessie MD [address] [place], [place] [address] Social History Tobacco Use Types Packs/Day Years [...] EDT Electronically signed by Gayle Finnegan Conversion Rope Coiling Machine Operator Cerner at 02/04/2023 2:17 PM CDT documented in this encounter Plan of Treatment Not on file documented as of this encounter Visit Diagnoses Not on filedocumented in this encounter Care Teams Salesperson Parts Relationship Specialty Start Date End Date Jay Howell MD [address] [place] [phone] PCP - General Emergency Medicine 11/12/23 documented as of this encounter
--- OUTSIDE RECORDS SUMMARY | 2025-07-28 09:19 | XMS_ITS | Encounter Summary ---
Author Organization [employer] ([place], [place], [place], [place]) Address [address] [place] [address] Care Team Providers Care Strike Operations Officer Name Role Phone Jay Howell MD Primary Care Provider [phone] Encounter Details Date Type Department Care Team (Late st Contact Info) Description 03/19/2021 Transcribed Document [facility] [place] [facility] [place] [address] ProviderJessie MD [address] [place], [place] [address] Social History Tobacco Use Types Packs/Day Years Used Date Smoking Tobacco: Never Assessed Comments Unknown Sex and Gender Information Value Date Recorded Sex Assigned at Not on file Legal Sex Female 7:30 PM CDT Gender Identity Not on file Sexual Orientation Not on file documented as of this encounter Miscellaneous Notes * Cerner Conversion Note - Jessie ProviderMD - 03/19/2021 2:00 AM CDT Manager People Details Entered On: 03/19/2021 2:31 EDT Performed [...] 03/19/2021 2:31 EDT Electronically signed by Sivan [facility] Conversion Casing In Line Setter Cerner at 02/04/2023 2:11 PM CDT documented in this encounter Plan of Treatment Not on file documented as of this encounter Visit Diagnoses Not on filedocumented in this encounter Care Teams Strike Operations Officer Relationship Specialty Start Date End Date Jay Howell MD [address] [place] [phone] PCP - General Emergency Medicine 11/12/23 documented as of this encounter
--- OUTSIDE RECORDS SUMMARY | 2025-07-28 09:19 | XMS_ITS | Encounter Summary ---
Author Organization [employer] ([place], [place], [place], [place]) Address [address] [place] [address] Care Team Providers Care Mechanical Design Engineer Name Role Phone Jay Howell MD Primary Care Provider [phone] Encounter Details Date Type Department Care Team (Late st Contact Info) Description 08/28/2020 Transcribed Document [facility] [place] [address] [place] [address] ProviderJessie MD [address] [place] [address] Social History Tobacco Use Types Packs/Day Years Used Date Smoking Tobacco: Never Assessed Comments Unknown Sex and Gender Information Value Date Recorded Sex Assigned at Not on file Legal Sex Female 7:30 PM CDT Gender Identity Not on file Sexual Orientation Not on file documented as of this encounter Miscellaneous Notes * Cerner Conversion Note - Historical ProviderMD - 08/28/2020 10:16 AM IT PROGRAM MANAGER Attempt to Treat, PT Entered On: 08/28/2020 [...] schedule allows Notification : RN(Jose L)/PTx/OTx ERIC HO, PT - 08/28/2020 10:27 EST Electronically signed by [facility] Conversion Production Mechanic Cerner at 02/04/2023 2:14 PM CDT documented in this encounter Plan of Treatment Not on file documented as of this encounter Visit Diagnoses Not on filedocumented in this encounter Care Teams Mechanical Design Engineer Relationship Specialty Start Date End Date Jay Howell MD [address] [place] [phone] PCP - General Emergency Medicine 11/12/23 documented as of this encounter
--- OUTSIDE RECORDS SUMMARY | 2025-07-28 09:19 | XMS_ITS | Encounter Summary ---
Author Organization [facility] Address [address] [place] [phone] Care Team Providers Care Dental Practice Manager Name Role Phone Jay Howell MD Primary Care Provider [phone] Encounter Details Date Type Department Care Team (Late st Contact Info) Description 07/09/2025 Telephone [facility] [address], [address] [place] [address] [place] [address] Social History Tobacco Use Types Packs/Day Years [...] place to sleep or slept in a halfway (including now)? No 08/06/2024 CAGE ASSESSMENT Answer [...] drink first t kathleen in the morning (EYE-APPLIANCE ADJUSTER) to steady your nerves or to get [...] documented as of this encounter Care Teams Dental Practice Manager Relationship Specialty Start Date End Date Jay Howell MD [address] [place], [place] [address] PCP - General 03/08/21 documented as of this encounter
--- OUTSIDE RECORDS SUMMARY | 2025-07-28 09:19 | XMS_ITS | Encounter Summary ---
Author Organization [employer] ([place], [place], [place], [place]) Address [address] [place] [address] Care Team Providers Care Extension Clerk Name Role Phone Jay Howell MD Primary Care Provider [phone] Encounter Details Date Type Department Care Team (Late st Contact Info) Description 07/18/2021 Transcribed Document [facility] [place] [address] [place] [address] ProviderJessie MD [address] [place] [phone] Social History Tobacco Use Types Packs/Day Years [...] CDT Electronically signed by [facility] Conversion Skip Tracer Cerner at 02/04/2023 2:03 PM CDT documented in this encounter Plan of Treatment Not on file documented as of this encounter Visit Diagnoses Not on filedocumented in this encounter Care Teams Extension Clerk Relationship Specialty Start Date End Date Jay Howell MD [address] [place] [phone] PCP - General Emergency Medicine 11/12/23 documented as of this encounter
--- OUTSIDE RECORDS SUMMARY | 2025-07-28 09:19 | XMS_ITS | Clinical Summary ---
Author Organization [facility] [place] [address] Care Team Providers Care Lens Mold Setter Name Role Phone Jay Howell [...] contusion - Repeat CTH 0500 pending - [facility] elevated - Na goal 140-145 - Keppra [...] repeat falls Continue outpatient follow-up with established steam clothes press operator; consider closer follow up with continued weakness/repeat falls. 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 She has denied any chest pain. Her last heart catheterization was November 25, 2022 at [facility] in [place] showing: -last C 11/25/2022- A. CAD s/p [...] of chest/PE protocol. Patient was sent to [facility] radiology department for CT scan today. [...] Type Department Care Team Description 07/16/2025 Telephone [facility] Urology [address], [address] [place] [phone] Kimmie Cabrera 07/09/2025 Telephone [facility] Urology [address] [place] [phone] Kimmie Cabrera 07/02/2025 Telephone [facility] Urology [address], [address] [place] [phone] Returned Call 05/27/2025 Telephone [facility] [address], [address] [place] [phone] Mitraneurology, Physician, 05/13/2025 Telephone [facility] [address], [address] [place] [phone] Mitraneurology, Physician, from Last 3 Months Immunizations [...] place to sleep or slept in a [place] health care facility (including now)? No 08/06/2024 CAGE ASSESSMENT Answer [...] drink first t kathleen in the morning (EYE-PANEL MAKER) to steady your nerves or to get rid of a hangover? 0 03/20/2024 CAGE Questionnaire Score 0 024 Utilities Answer Date Recorded In the past 12 months has th [employer] gas, oil, or water company threatened [...] Scan 1940 [facility]-Medicare Annual Wellness (AWV) 1940 [facility]-/Child/Adol SDOH Screenings 1940 Diabetes: Dental Exam 12/23/1949 [facility]-Hepatitis A Vaccines (1 of 2 - Risk 2-dose series) 12/23/1958 [facility]-Zoster Vaccines (1 of 2) 12/23/1958 [facility]-RSV Vaccine: 60+ Years or (1 - 1-dose 75+ series) 12/23/2014 [facility]-Diabetes: Hemoglobin A1C 09/17/2024 03/20/2024, 01/20/2024 [facility]- SDOH Screenings 02/04/2025 [facility]-Adult SDOH Screenings 02/04/2025 08/06/2024 [facility]-Depression Screening 04/03/2025 04/03/2024 [id number]-ZYMRT-98 Vaccine ( - 2024- season) 2025 12/09/2021, [...] this topic Medical Devices Implanted Type Area Immigration Attorney Device Identifier Shelf Expiration Date Model / Serial / Lot Nail 10s Intertan 10mm X 36cm 130d Left - [id number] Implanted:Qty: 1 on 03/20/2024 by Haroldo Braden MD at [facility] Nail Left: Femur [id number] 08/04/2033 [id number] / / [id number] Nail Tibial [id number] - [id number] Implanted:Qty: 1 on 08/06/2024 by Haroldo Braden MD at [facility] Nail Right: Tibia [employer] ([employer])-[id number] 09/15/2033 [id number] / / [id number] Lag/Comp Screw Kit 90/85 - [id number] Implanted:Qty: 1 on 03/20/2024 by Haroldo Braden MD at [facility] Screw Left: Femur [employer]-[id number] 09/26/2033 [id number] / / [id number] Screw Trigen 5.0mm For Metanail 37.5mm - [id number] Implanted:Qty: 1 on 03/20/2024 by Haroldo Braden MD at [facility] Screw Left: Femur [id number] 08/19/2033 [id number] / / [id number] Screw Locking Adv T2 T2 D5xl60 - [id number] Implanted:Qty: 1 on 08/06/2024 by Haroldo Braden MD at [facility] Screw Right: Tibia [employer] [facility][id number] 05/16/2034 [id number] / / [id number] Screw Locking Adv T2 T2 D5xl50 - [id number] Implanted:Qty: 1 on 08/06/2024 by Haroldo Braden MD at [facility] Screw Right: [employer]ia [employer] ([facility][id number] 01/14/2034 [id number] / / [id number] Screw Locking T2 D5xl42.5 - [id number] Implanted:Qty: 1 on 08/06/2024 by Haroldo Braden MD at [facility] Screw Right: [employer]ia [employer] ([facility][id number] 05/16/2034 [id number] / / [id number] Screw Locking T2 D5x35 - [id number] Implanted:Qty: 1 on 08/06/2024 by Haroldo Braden MD at [facility] Screw Right: [employer] ([facility][id number] 05/16/2034 [id number] / / [id number] Procedures Procedure Name Priority Date/Time Associated Diagnosis [...] Adults <6.0% Children and Adolescents <7.5% Source: [place] [employer]. Standards of medical care in diabetes,2017. Diabetes Care.2017:40 (suppl 1):S1-S135. HbA1c assay performed by an ion-exchange chromatography method that is certified traceable to the DCCT. Gerhard Zazueta MD LAB BLOOD ORDERABLES Final Resu lt [facility] [address] [place] [address] from Last 3 Months or Most Recently Relevant to Health Maintenance Insurance MEDICARE Advance Directives Documents on File Type Date Recorded Patient Osteopathic Resident Expl anation Advance Directives and Livin g [...] Patient has decision-making capacity? Yes Care Teams Lens Mold Setter Relationship Specialty Start Date End Date Jay Howell MD [address] [place], [place] [address] PCP - General 03/08/21
--- OUTSIDE RECORDS SUMMARY | 2025-07-28 09:19 | XMS_ITS | Encounter Summary ---
Author Organization [employer] ([place], [place], [place], [place]) Address [address] [place] [address] Care Team Providers Care Rn Radiology Name Role Phone Jay Howell MD Primary Care Provider [phone] Encounter Details Date Type Department Care Team (Late st Contact Info) Description 08/27/[address] [facility] [place] [address] [place] [address] ProviderJessie MD [address] [place] [address] Social History Tobacco Use Types Packs/Day Years Used Date Smoking Tobacco: Never Assessed Comments Unknown Sex and Gender Information Value Date Recorded Sex Assigned at Not on file Legal Sex Female 7:30 PM CDT Gender Identity Not on file Sexual Orientation Not on file documented as of this encounter Miscellaneous Notes * Cerner Conversion Note - Jessie Yuen MD - 08/27/2020 5:54 PM METAL BALER Patient: SKYLER MONTOYA Age: 79 Years Sex: [...] multiple stent placements. The patient presented to [facility] ER after recent fall with hematoma required [...] Vitamins oral tablet, 1 Tab, Oral, Daily [place] 7.5 mg-325 mg oral tablet, 1 Tab, [...] 08:41 EST Electronically signed by [facility] Conversion Credit Compliance Officer Cerner at 02/04/2023 2:05 PM CDT documented in this encounter Plan of Treatment Not on file documented as of this encounter Visit Diagnoses Not on filedocumented in this encounter Care Teams Rn Radiology Relationship Specialty Start Date End Date Jay Howell MD [address] [place] [phone] PCP - General Emergency Medicine 11/12/23 documented as of this encounter
--- OUTSIDE RECORDS SUMMARY | 2025-07-28 09:19 | XMS_ITS | Encounter Summary ---
Author Organization [employer] ([place], [place], [place], [place]) Address [address] [place] [address] Care Team Providers Care Cornice Maker Name Role Phone Jay Howell MD Primary Care Provider [phone] Encounter Details Date Type Department Care Team (Late st Contact Info) Description 07/18/2021 Transcribed Document [facility] [place] [address] [place] [address] ProviderJessie MD [address] [place] [phone] Social History Tobacco Use Types Packs/Day Years [...] on filedocumented in this encounter Care Teams Cornice Maker Relationship Specialty Start Date End Date Jay Howell MD [address] [place] [phone] PCP - General Emergency Medicine 11/12/23 documented as of this encounter
--- OUTSIDE RECORDS SUMMARY | 2025-07-28 09:19 | XMS_ITS | Encounter Summary ---
Author Organization [employer] ([place], [place], [place], [place]) Address [address] [place] [address] Care Team Providers Care Non Licensed Nuclear Plant Operator Name Role Phone Jay Howell MD Primary Care Provider [phone] Encounter Details Date Type Department Care Team (Late st Contact Info) Description 08/27/2020 Transcribed Document [facility] [place] [address] [place] [address] ProviderJessie MD [address] [place], [place] [address] Social History Tobacco Use Types Packs/Day Years Used Date Smoking Tobacco: Never Assessed Comments Unknown Sex and Gender Information Value Date Recorded Sex Assigned at Not on file Legal Sex Female 7:30 PM CDT Gender Identity Not on file Sexual Orientation Not on file documented as of this encounter Miscellaneous Notes * Cerner Conversion Note - Historical ProviderMD - 08/27/2020 3:10 PM AIR AND HYDRONIC BALANCING TECHNICIAN Patient: SKYLER OMNTOYA Age: 79 Years Sex: Female : 1940 [...] (High) 08/27/2020 08:41 EST Electronically signed by [facility] Conversion Part Time Cerner at 02/04/2023 2:06 PM CDT documented in this encounter Plan of Treatment Not on file documented as of this encounter Visit Diagnoses Not on filedocumented in this encounter Care Teams Non Licensed Nuclear Plant Operator Relationship Specialty Start Date End Date Jay Howell MD [address] [place] [phone] PCP - General Emergency Medicine 11/12/23 documented as of this encounter
--- OUTSIDE RECORDS SUMMARY | 2025-07-28 09:19 | XMS_ITS | Encounter Summary ---
Author Organization [email or web address] ([place], [place], [place], [place]) Address [address] [place] [address] Care Team Providers Care Artificial Limb Maker Name Role Phone Jay Howell MD Primary Care Provider [phone] Encounter Details Date Type Department Care Team (Late st Contact Info) Description 03/19/2021 Transcribed Document [facility] [place] Medicine [facility] [place] [address] ProviderJessie MD [address] [place] [address] Social History Tobacco Use Types Packs/Day Years [...] 2. Calcification of the vertebral origins with koat-ja-ecjrvcon stenosis. 3. Extensive vascular calcification. 4. Severe [...] difficult. The CTA also shows bilateral proximal [employer] VICE PRINCIPAL stenoses. The differential could include one or [...] on filedocumented in this encounter Care Teams Artificial Limb Maker Relationship Specialty Start Date End Date Jay Howell MD [address] [place] [phone] PCP - General Emergency Medicine 11/12/23 documented as of this encounter
--- OUTSIDE RECORDS SUMMARY | 2025-07-28 09:19 | XMS_ITS | Encounter Summary ---
Author Organization [employer] ([place], [place], [place], [place]) Address [address] [place] [address] Care Team Providers Care Partner Manager Name Role Phone Jay Howell MD Primary Care Provider [phone] Encounter Details Date Type Department Care Team (Late st Contact Info) Description 08/28/[address] [facility] [place] Family Medicine [address] [place] [address] ProviderJessie MD [address] [place] [address] Social History Tobacco Use Types Packs/Day Years Used Date Smoking Tobacco: Never Assessed Comments Unknown Sex and Gender Information Value Date Recorded Sex Assigned at Not on file Legal Sex Female 7:30 PM CDT Gender Identity Not on file Sexual Orientation Not on file documented as of this encounter Miscellaneous Notes * Cerner Conversion Note - Jessie Yuen MD - 08/28/2020 3:33 PM COMPUTER SYSTEMS SECURITY ADMINISTRATOR On Going Discharge Planning Entered On: 08/28/2020 15:37 EST Performed On: 08/28/2020 15:33 EST by KAVITA PELLETIER RN-Sap Technical ArchitectHot Molder Progress Note Discharge Arrangements : Patient Post-Acute [...] Meeting Medical Necessity : Yes KAVITA PELLETIER RN-Sap Technical Architect - 08/28/2020 15:33 EST Narrative Progress Note Narrative Progress Note : Cx's still pending. IV Vanc/Dapto. Vasc s/o. Pt will need NPWT-CM will obtain prior to dc. List of MANUFACTURING OPERATIONS MANAGER's for [place] [employer] given to pt. She [...] past after her [facility] and went to [facility] prior to home with HH. She is agreeable to look at list of MANUFACTURING OPERATIONS MANAGER to make an informed decision based on quality and resource use information. Cx's are pending to determine need for IV abx at home. Likely dc in a few days. CM will continue to follow. KAVITA PELLETIER RN-Sap Technical Architect - 08/27/20 15:14:36 KAVITA PELLETIER RN-Sap Technical Architect - 08/28/2020 15:33 EST Electronically signed by Sivan [facility] Conversion Oncology Transplant Network Manager Cerner at 02/04/2023 2:13 PM CDT documented in this encounter Plan of Treatment Not on file documented as of this encounter Visit Diagnoses Not on filedocumented in this encounter Care Teams Partner Manager Relationship Specialty Start Date End Date Jay Howell MD [address] [place] [phone] PCP - General Emergency Medicine 11/12/23 documented as of this encounter
--- OUTSIDE RECORDS SUMMARY | 2025-07-28 09:19 | XMS_ITS | Encounter Summary ---
Author Organization [employer] ([place], [place], [place], [place]) Address [address] [place] [address] Care Team Providers Care Certified Medical Dosimetrist Name Role Phone Jay Howell MD Primary Care Provider [phone] Encounter Details Date Type Department Care Team (Late st Contact Info) Description 08/27/2020 Transcribed Document [facility] [place] [address] [place] [address] ProviderJessie MD [address] [place] [address] Social History Tobacco Use Types Packs/Day Years Used Date Smoking Tobacco: Never Assessed Comments Unknown Sex and Gender Information Value Date Recorded Sex Assigned at Not on file Legal Sex Female 7:30 PM CDT Gender Identity Not on file Sexual Orientation Not on file documented as of this encounter Miscellaneous Notes * Cerner Conversion Note - Jessie Yuen MD - 08/27/2020 9:53 AM REMOTE SENSING ENGINEER WOCN Inpatient Documentation Entered On: 09/01/2020 16:35 [...] Ulcer WOCN Wound Pressure Ulcer Documentation : Gabmqsawg-Hfwzyl-Yifr Abnormality: Leg Left Lower, Anterior on 09/01/2020 13:00 by HOLDEN HESS RN I/W/A Present on Admission to Hospital: No I/W/A Type: Hematoma I/W/A Dressing Status: Clean, Dry, Intact I/W/A Wound Date of Dressing Change: 1:[id number]:[id number]:0:0 I/W/A Wound Bed Description: Full-thickness, Granulating I/W/A [...] - 09/01/2020 16:32 EST Electronically signed by [facility] Conversion Table Inspector Cerner at 02/04/2023 2:18 PM CDT documented in this encounter Plan of Treatment Not on file documented as of this encounter Visit Diagnoses Not on filedocumented in this encounter Care Teams Certified Medical Dosimetrist Relationship Specialty Start Date End Date Jay Howell MD [address] [place] [phone] PCP - General Emergency Medicine 11/12/23 documented as of this encounter
--- OUTSIDE RECORDS SUMMARY | 2025-07-28 09:19 | XMS_ITS | Encounter Summary ---
Author Organization [employer] ([place], [place], [place], [place]) Address [address] [place] [address] Care Team Providers Care Feeder Operator Name Role Phone Jay Howell MD Primary Care Provider [phone] Encounter Details Date Type Department Care Team (Late st Contact Info) Description 03/19/2021 Transcribed Document [facility] [place] Family Medicine [address] [place] [address] ProviderJessie MD [address] [place], [place] [address] Social History Tobacco Use Types Packs/Day Years [...] EDT Electronically signed by Gayle Finnegan Conversion Telephone Directory Deliverer Cerner at 02/04/2023 2:10 PM CDT documented in this encounter Plan of Treatment Not on file documented as of this encounter Visit Diagnoses Not on filedocumented in this encounter Care Teams Feeder Operator Relationship Specialty Start Date End Date Jay Howell MD [address] [place] [phone] PCP - General Emergency Medicine 11/12/23 documented as of this encounter
--- OUTSIDE RECORDS SUMMARY | 2025-07-28 09:19 | XMS_ITS | Encounter Summary ---
Author Organization [employer] ([place], [place], [place], [place]) Address [address] [place] [address] Care Team Providers Care Timber Robber Name Role Phone Jay Howell MD Primary Care Provider [phone] Encounter Details Date Type Department Care Team (Late st Contact Info) Description 03/19/2021 Transcribed Document [facility] [place] Family Medicine [facility] [place] [address] ProviderJessie MD [address] [place], [place] [address] Social History Tobacco Use Types Packs/Day Years [...] of the form. Electronically signed by Sivan, [facility] Conversion Television Schedule Coordinator Cerner at 02/04/2023 2:13 PM CDT documented in this encounter Plan of Treatment Not on file documented as of this encounter Visit Diagnoses Not on filedocumented in this encounter Care Teams Timber Robber Relationship Specialty Start Date End Date Jay Howell MD [address] [place] [phone] PCP - General Emergency Medicine 11/12/23 documented as of this encounter
--- OUTSIDE RECORDS SUMMARY | 2025-07-28 09:19 | XMS_ITS | Encounter Summary ---
Author Organization [employer] ([place], [place], [place], [place]) Address [address] [place] [address] Care Team Providers Care Sausage Grinder Name Role Phone Jay Howell MD Primary Care Provider [phone] Encounter Details Date Type Department Care Team (Late st Contact Info) Description 08/27/2020 Transcribed Document [facility] [place] Family Medicine [address] [place] [address] ProviderJessie MD [address] [place] [address] Social History Tobacco Use Types Packs/Day Years Used Date Smoking Tobacco: Never Assessed Comments Unknown Sex and Gender Information Value Date Recorded Sex Assigned at Not on file Legal Sex Female 7:30 PM CDT Gender Identity Not on file Sexual Orientation Not on file documented as of this encounter Miscellaneous Notes * Cerner Conversion Note - Jessie Yuen MD - 08/27/2020 3:10 PM LEGAL MEDIATOR On Going Discharge Planning Entered On: 08/27/2020 15:14 EST Performed On: 08/27/2020 15:10 EST by KAVITA PELLETIER RN-China And Silverware SalespersonPattern Hand Progress Note Discharge Arrangements : Patient Post-Acute [...] Meeting Medical Necessity : Yes KAVITA PELLETIER RN-China And Silverware Salesperson - 08/27/2020 15:10 EST Narrative Progress Note [...] past after her [place] and went to [facility] prior to home with HH. She is agreeable to look at list of SUGGESTION CLERK to make an informed decision based on quality and resource use information. Cx's are pending to determine need for IV abx at home. Likely dc in a few days. CM will continue to follow. KAVITA PELLETIER RN-China And Silverware Salesperson - 08/27/2020 15:10 EST Electronically signed by Sivan [facility] Conversion Cloth Layer Cerner at 02/04/2023 2:13 PM CDT documented in this encounter Plan of Treatment Not on file documented as of this encounter Visit Diagnoses Not on filedocumented in this encounter Care Teams Sausage Grinder Relationship Specialty Start Date End Date Jay Howell MD [address] [place] [phone] PCP - General Emergency Medicine 11/12/23 documented as of this encounter
--- OUTSIDE RECORDS SUMMARY | 2025-07-28 09:19 | XMS_ITS | Encounter Summary ---
Author Organization [employer] ([place], [place], [place], [place]) Address [address] [place] [address] Care Team Providers Care Food Production Worker Name Role Phone Jay Hwoell MD Primary Care Provider [phone] Encounter Details Date Type Department Care Team (Late st Contact Info) Description 08/28/2020 Transcribed Document [facility] [place] Family Medicine [address] [place] [address] ProviderJessie MD [address] [place] [address] Social History Tobacco Use Types Packs/Day Years Used Date Smoking Tobacco: Never Assessed Comments Unknown Sex and Gender Information Value Date Recorded Sex Assigned at Not on file Legal Sex Female 7:30 PM CDT Gender Identity Not on file Sexual Orientation Not on file documented as of this encounter Miscellaneous Notes * Cerner Conversion Note - Jessie Yuen MD - 08/28/2020 10:32 AM TRAIN CREW MEMBER Patient: SKYLER MONTOYA Age: 79 years Sex: [...] level of muscle per surgery *Operation RIGHT EDUCATION COURSES SALES REPRESENTATIVE access - ultrasound guided Aortogram with LEFT lower extremity run-off LEFT PT angioplasty ([id number] Nanocross) LEFT peroneal angioplasty (2.5-3h132qm Nanocross) RIGHT EDUCATION COURSES SALES REPRESENTATIVE closure (Angioseal) LEFT leg debridement 08/28/20 seen [...] Level 8.8 mg/dL 08/27/2020 03:40 MICRO: ACC: [id number] ORDER: Culture Wound and Stain DATE: 08/25/2020 05:00 SOURCE: Wound SITE: Leg Lower L Reports Final 08/28/2020 08:57 No growth Pre 08/26/2020 06:23 No growth GS 08/25/2020 07:26 No organisms seen. Few White Blood Cells Rare epithelial cells == ACC: [id number] ORDER: Culture AFB and Stain DATE: 08/26/2020 13:56 SOURCE: Surgical Swab SITE: Leg Lower L Reports AFS 08/27/2020 13:07 No Acid Fast Bacilli seen == ACC: [id number] ORDER: Culture Anaerobic DATE: 08/26/2020 13:56 SOURCE: Surgical Swab SITE: Leg Lower L Reports Pre 08/28/2020 07:01 No Anaerobic growth Pre 08/27/2020 07:47 Culture in progress == ACC: [id number] ORDER: Culture Wound and Stain DATE: 08/26/2020 15:23 SOURCE: Surgical Swab SITE: Leg Lower L Reports Pre 08/27/2020 07:14 No growth GS 08/26/2020 18:13 Few White Blood Cells No organisms seen. == ACC: [id number] ORDER: Culture Fungus DATE: 08/26/2020 13:56 SOURCE: Surgical Swab SITE: Leg Lower L Reports SINDI 08/26/2020 16:09 No Fungal elements seen == ACC: [id number] ORDER: Culture Blood DATE: 08/25/2020 05:01 SOURCE: Blood SITE: Reports Pre 08/28/2020 06:01 No growth at 3 days. Pre 08/27/2020 06:01 No growth at 2 days. Pre 08/26/2020 06:01 No growth at 1 day. Pre 08/25/2020 23:02 Culture less than 24 Hrs old == ACC: [id number] ORDER: Culture Blood DATE: 08/25/2020 05:01 SOURCE: Blood SITE: Reports Pre 08/28/2020 06:01 No growth at 3 days. Pre 08/27/2020 06:01 No growth at 2 days. Pre 08/26/2020 06:01 No growth at 1 day. Pre 08/25/2020 23:02 Culture less than 24 Hrs old == Radiology Results (Last 48 hours) [id number] -- 08/25/2020 05:53 CT Abdomen WO W [...] them. Electronically signed by Gayle Finnegan Conversion Thoroughbred Horse Farm Manager Cerner at 02/04/2023 2:17 PM CDT documented in this encounter Plan of Treatment Not on file documented as of this encounter Visit Diagnoses Not on filedocumented in this encounter Care Teams Food Production Worker Relationship Specialty Start Date End Date Jay Howell MD [address] [place] [phone] PCP - General Emergency Medicine 11/12/23 documented as of this encounter
--- OUTSIDE RECORDS SUMMARY | 2025-07-28 09:19 | XMS_ITS | Encounter Summary ---
Author Organization [employer] ([place], [place], [place], [place]) Address [address] [place] [address] Care Team Providers Care Band Attacher Name Role Phone Jay Howell MD Primary Care Provider [phone] Encounter Details Date Type Department Care Team (Late st Contact Info) Description 08/27/2020 Transcribed Document [facility] [place] Family Medicine [address] [place] [address] ProviderJessie MD [address] [place] [address] Social History Tobacco Use Types Packs/Day Years Used Date Smoking Tobacco: Never Assessed Comments Unknown Sex and Gender Information Value Date Recorded Sex Assigned at Not on file Legal Sex Female 7:30 PM CDT Gender Identity Not on file Sexual Orientation Not on file documented as of this encounter Miscellaneous Notes * Cerner Conversion Note - Historical ProviderMD - 08/27/2020 3:14 PM ATTENDANCE CLERK Consult Phone Call Documentation Entered On: 08/27/2020 15:23 EST Performed On: 08/27/2020 15:14 EST by JOANN DELGADILLO Phone Call for Consults Consult Phone Call/Page Attempt : First call JOANN DELGADILLO - 08/27/2020 15:23 EST Electronically signed by Sivan [facility] Conversion Contractor Field Hauling Cerner at 02/04/2023 1:59 PM CDT documented in this encounter Plan of Treatment Not on file documented as of this encounter Visit Diagnoses Not on filedocumented in this encounter Care Teams Band Attacher Relationship Specialty Start Date End Date Jay Howell MD [address] [place] [phone] PCP - General Emergency Medicine 11/12/23 documented as of this encounter
--- OUTSIDE RECORDS SUMMARY | 2025-07-28 09:19 | XMS_ITS | Encounter Summary ---
Author Organization [employer] ([place], [place], [place], [place]) Address [address] [place] [address] Care Team Providers Care Plastics Repairer Name Role Phone Jay Howell MD Primary Care Provider [phone] Encounter Details Date Type Department Care Team (Late st Contact Info) Description 03/19/2021 Transcribed Document [facility] [place] [address] [place] [address] ProviderJessie MD [address] [place] [address] Social History Tobacco Use Types Packs/Day [...] Yuen MD - 03/19/2021 2:50 PM CDT [facility] [place] [address] SKYLER MONTOYA :1940 Visit Time:03/17/2021 Your Visit Summary Your Care Team Admitting Physician - MARIA ELENA DAVALOS MD-[facility] Attending Physician - SARAH CONTEH MD [...] or Anabell ( Hand Surgery) on d/c. [phone] Activity: Discharge Activity: Activity as tolerated Diet: Discharge Diet: Heart healthy diet Driving Restriction: Do Not Drive due to fainting episode until your doctor says you can Follow-Up Appointments Follow Up with ANDERSON CARRASCO MD When Within 3 to 5 days Comments for ortho eval for fracture wrist Where: [address] [place] [address]- Follow Up with WOO JOHNSTON When Within 2 to 4 weeks Where: [address] [place] [address] [place] [address]- Business (1) Follow Up with JEFFERSON MENDOZA When Within 6 weeks Comments Patient should call for a follow up appointment with [facility]. Where: [address] [place] [address]- Business (1) Medications What How Much When [...] activities are safe for you. ??? Take nmdy-xzq-sbufwab and prescription medicines only as told by [...] provider. Document Revised: 07/31/2018 Document Reviewed: 03/26/2017 [employer] Patient Education ?? 2020 [employer] Near-Syncope Near-syncope is when you suddenly [...] these instructions at home: Medicines ??? Take vtdd-zvb-ruzpibn and prescription medicines only as told by [...] Reviewed: 08/22/2019 Elsevier Patient Education ?? 2020 [employer]. Emergency Awareness and Preventative Care STROKE is [...] Assistance with quitting is available by contacting 1-831-KOHO-NOW. This is a free resource providing counseling, [...] range between ( 0.0 and 7.0 ) [place] #: 0.59 K/uL -- Normal range between ( 0.16 and 1.00 ) [place] #: 0.00 x10(3)/uL -- Normal range between ( 0.00 and 0.80 ) [place] %: 8.9 % -- Normal range between [...] /LPF Urine Bilirubin Dipstick: Negative Urine Specific [place]: 1.015 -- Normal range between ( 1.005 [...] was given the opportunity to ask questions. Patient/Diamond Sizer And Sorter Name: Patient/Diamond Sizer And Sorter Signature: Relationship to Patient: Clinician/Hospital Diamond Sizer And Sorter Signature: Date: Electronically signed by Sivan, [facility] Conversion Practical Nurse Cerner at 02/04/2023 2:18 PM CDT documented in this encounter Plan of Treatment Not on file documented as of this encounter Visit Diagnoses Not on filedocumented in this encounter Care Teams Plastics Repairer Relationship Specialty Start Date End Date Jay Howell MD [address] [place] [phone] PCP - General Emergency Medicine 11/12/23 documented as of this encounter
--- OUTSIDE RECORDS SUMMARY | 2025-07-28 09:19 | XMS_ITS | Encounter Summary ---
Author Organization [employer] ([place], [place], [place], [place]) Address [address] [place] [address] Care Team Providers Care Meat Dresser Name Role Phone Jay Howell MD Primary Care Provider [phone] Encounter Details Date Type Department Care Team (Late st Contact Info) Description 08/27/2020 Transcribed Document [facility] Family Medicine [address] [place] [address] ProviderJessie MD [address] [place] [address] Social History Tobacco Use Types Packs/Day Years Used Date Smoking Tobacco: Never Assessed Comments Unknown Sex and Gender Information Value Date Recorded Sex Assigned at Not on file Legal Sex Female 7:30 PM CDT Gender Identity Not on file Sexual Orientation Not on file documented as of this encounter Miscellaneous Notes * Cerner Conversion Note - Jessie Yuen MD - 08/27/2020 8:20 AM REEFER TRUCK DRIVER Patient: SKYLER MONTOYA Age: 79 years Sex: [...] 08/[address] Verde: *Operation RIGHT GROUP ACCOUNT DIRECTOR access - ultrasound guided Aortogram with LEFT lower extremity run-off LEFT PT angioplasty (2.5-3v707pr Nanocross) LEFT peroneal angioplasty (2.5-0q770sg Nanocross) RIGHT GROUP ACCOUNT DIRECTOR closure (Angioseal) LEFT leg debridement 08/27/20 seen [...] Level 8.8 mg/dL 08/27/2020 03:40 MICRO: ACC: [id number] ORDER: Culture Anaerobic DATE: 08/26/2020 13:56 SOURCE: Surgical Swab SITE: Leg Lower L Reports Pre 08/27/2020 07:47 Culture in progress == ACC: [id number] ORDER: Culture Wound and Stain DATE: 08/26/2020 15:23 SOURCE: Surgical Swab SITE: Leg Lower L Reports Pre 08/27/2020 07:14 No growth GS 08/26/2020 18:13 Few White Blood Cells No organisms seen. == ACC: [id number] ORDER: Culture Fungus DATE: 08/26/2020 13:56 SOURCE: Surgical Swab SITE: Leg Lower L Reports SINDI 08/26/2020 16:09 No Fungal elements seen == ACC: [id number] ORDER: Culture Wound and Stain DATE: 08/25/2020 05:00 SOURCE: Wound SITE: Leg Lower L Reports Pre 08/26/2020 06:23 No growth GS 08/25/2020 07:26 No organisms seen. Few White Blood Cells Rare epithelial cells == ACC: [id number] ORDER: Culture Blood DATE: 08/25/2020 05:01 SOURCE: Blood SITE: Reports Pre 08/27/2020 06:01 No growth at 2 days. Pre 08/26/2020 06:01 No growth at 1 day. Pre 08/25/2020 23:02 Culture less than 24 Hrs old == ACC: [id number] ORDER: Culture Blood DATE: 08/25/2020 05:01 SOURCE: Blood SITE: Reports Pre 08/27/2020 06:01 No growth at 2 days. Pre 08/26/2020 06:01 No growth at 1 day. Pre 08/25/2020 23:02 Culture less than 24 Hrs old == Radiology Results (Last 48 hours) [id number] -- 08/25/2020 05:53 MRI Spine Lumbar WO [...] on filedocumented in this encounter Care Teams Meat Dresser Relationship Specialty Start Date End Date Jay Howell MD [address] [place] [phone] PCP - General Emergency Medicine 11/12/23 documented as of this encounter
--- OUTSIDE RECORDS SUMMARY | 2025-07-28 09:19 | XMS_ITS | Encounter Summary ---
Author Organization [employer] ([place], [place], [place], [place]) Address [address] [place] [address] Care Team Providers Care Material Manager Name Role Phone Jay Howell MD Primary Care Provider [phone] Encounter Details Date Type Department Care Team (Late st Contact Info) Description 07/18/2021 Transcribed Document [facility] Family Medicine [facility] [place] [address] ProviderJessie MD [address] [place], [place] [id number] Social History Tobacco Use Types Packs/Day Years [...] Communication Barrier : None Primary Language : Montenegrin Any Spiritual/Cultural Needs or Requests : No [...] Rogerio Barr RN - 07/18/2021 15:20 EDT Electronically signed by Gayle Finnegan Conversion Computer Installation Engineer Cerner at 02/04/2023 1:59 PM CDT documented in this encounter Plan of Treatment Not on file documented as of this encounter Visit Diagnoses Not on filedocumented in this encounter Care Teams Material Manager Relationship Specialty Start Date End Date Jay Howell MD [address] [place] [phone] PCP - General Emergency Medicine 11/12/23 documented as of this encounter
--- OUTSIDE RECORDS SUMMARY | 2025-07-28 09:19 | XMS_ITS | Encounter Summary ---
Author Organization [employer] ([place], [place], [place], [place]) Address [address] [place] [address] Care Team Providers Care Senior Database Programmer Name Role Phone Jay Howell MD Primary Care Provider [phone] Encounter Details Date Type Department Care Team (Late st Contact Info) Description 08/28/2020 Transcribed Document [facility] Family Medicine [address] [place] [address] ProviderJessie MD [address] [place] [address] Social History Tobacco Use Types Packs/Day Years Used Date Smoking Tobacco: Never Assessed Comments Unknown Sex and Gender Information Value Date Recorded Sex Assigned at Not on file Legal Sex Female 7:30 PM CDT Gender Identity Not on file Sexual Orientation Not on file documented as of this encounter Miscellaneous Notes * Cerner Conversion Note - Jessie ProviderMD - 08/28/2020 1:08 PM COMMUNITY LIFE DIRECTOR Patient: SKYLER MONTOYA Age: 79 Years [...] distal ecchymosis. Palpable DP pulse, audible biphasic MIDDLE SCHOOL HISTORY TEACHER signal. Neuromotor intact. VTE Risk Total Score [...] LEFT PT occlusion - distal - 08/26/2020 ([facility];[place]) RIGHT COLOR SEPARATION PHOTOGRAPHER access - ultrasound guided Aortogram with LEFT lower extremity run-off LEFT PT angioplasty ([id number] Nanocross) LEFT peroneal angioplasty ([id number] [employer]ocross) RIGHT COLOR SEPARATION PHOTOGRAPHER closure (Angioseal) LEFT leg debridement - H&H, [...] for tomorrow's vac change. - Rx for [place] 5/325mg q4-6h prn pain #20 on chart. - Will need RLE angio with revascularization in near future. - F/u 1 wk w/ Dr. Verde in [facility] (09/08 at 1245) - [...] 24 Hours) Radiology Results (Last 48 hours) [id number] -- 08/25/2020 05:53 CT Abdomen WO W [...] nitrofurantoin (blisters, blisters) Electronically signed by Sivan [facility] Conversion Print Operator Cerner at 02/04/2023 1:58 PM CDT documented in this encounter Plan of Treatment Not on file documented as of this encounter Visit Diagnoses Not on filedocumented in this encounter Care Teams Senior Database Programmer Relationship Specialty Start Date End Date Jay Howell MD [address] [place] [phone] PCP - General Emergency Medicine 11/12/23 documented as of this encounter
--- OUTSIDE RECORDS SUMMARY | 2025-07-28 09:19 | XMS_ITS | Encounter Summary ---
Author Organization [facility] Address [address] [place] [address] Care Team Providers Care Furniture Packer Name Role Phone Jay Howell MD Primary Care Provider [phone] Reason for Visit * Reason Onset Date Comments DR. DUMAS - SCHEDULING REQUEST 07/02/2025 Encounter Details Date Type Department Care Team (Late st Contact Info) Description 07/02/2025 Telephone [facility] CARDIOLOG[facility] [address] [place] [phone] Judie Dumas MD [address] [place] [address] DR. 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 PATIENT WOULD LIKE TO BE SEEN [place] AND CAN SEND ANY RELEVANT RECORDS FROM CARE WHILE SHE WAS AWAY. documented in this encounter Plan of Treatment Not on file documented as of this encounter Visit Diagnoses Not on filedocumented in this encounter Care Teams Furniture Packer Relationship Specialty Start Date End Date Jay Howell MD [address] [place] [address] PCP - General Emergency Medicine 04/28/23 documented as of this encounter
--- OUTSIDE RECORDS SUMMARY | 2025-07-28 09:19 | XMS_ITS | Encounter Summary ---
Author Organization [employer] ([place], [place], [place], [place]) Address [address] [place] [address] Care Team Providers Care Planning Aide Name Role Phone Jay Howell MD Primary Care Provider [phone] Encounter Details Date Type Department Care Team (Late st Contact Info) Description 08/27/2020 Transcribed Document [facility] [place] Medicine [address] [place] [address] ProviderJessie MD [address] [place] [address] Social History Tobacco Use Types Packs/Day Years Used Date Smoking Tobacco: Never Assessed Comments Unknown Sex and Gender Information Value Date Recorded Sex Assigned at Not on file Legal Sex Female 7:30 PM CDT Gender Identity Not on file Sexual Orientation Not on file documented as of this encounter Miscellaneous Notes * Cerner Conversion Note - Historical ProviderMD - 08/27/2020 2:00 AM BRIM EDGE TRIMMER Customs Broker Details Entered On: 08/27/2020 1:36 EST Performed [...] 1:36 EST Electronically signed by Sivan [facility] Conversion Joggle Press Operator Cerner at 02/04/2023 2:19 PM CDT documented in this encounter Plan of Treatment Not on file documented as of this encounter Visit Diagnoses Not on filedocumented in this encounter Care Teams Planning Aide Relationship Specialty Start Date End Date Jay Howell MD [address] [place] [phone] PCP - General Emergency Medicine 11/12/23 documented as of this encounter
--- OUTSIDE RECORDS SUMMARY | 2025-07-28 09:19 | XMS_ITS | Encounter Summary ---
Author Organization [employer] ([place], [place], [place], [place]) Address [address] [place] [address] Care Team Providers Care Integration Solution Architect Name Role Phone Jay Howell MD Primary Care Provider [phone] Encounter Details Date Type Department Care Team (Late st Contact Info) Description 08/27/2020 Transcribed Document [facility] Family Medicine [address] [place] [address] ProviderJessie MD [address] [place], [place] [address] Social History Tobacco Use Types Packs/Day Years Used Date Smoking Tobacco: Never Assessed Comments Unknown Sex and Gender Information Value Date Recorded Sex Assigned at Not on file Legal Sex Female 7:30 PM CDT Gender Identity Not on file Sexual Orientation Not on file documented as of this encounter Miscellaneous Notes * Cerner Conversion Note - Historical ProviderMD - 08/27/2020 5:00 PM STRADDLE BUGGY OPERATOR Chart Check - Review Order Profile Entered On: 08/27/2020 19:43 EST Performed On: 08/27/2020 17:00 EST by JOAO ROSA RN Chart Check Powerplans Initiated/Discontinued as Appropriate : Yes All Active Orders Reviewed : Yes JOAO ROSA RN - 08/27/2020 19:43 EST Electronically signed by Sivan [facility] Conversion Spectrograph Operator Cerner at 02/04/2023 2:08 PM CDT documented in this encounter Plan of Treatment Not on file documented as of this encounter Visit Diagnoses Not on filedocumented in this encounter Care Teams Integration Solution Architect Relationship Specialty Start Date End Date Jay Howell MD [address] [place] [phone] PCP - General Emergency Medicine 11/12/23 documented as of this encounter
[2025-07-28 09:32] LABS: Microscopic, Urine URINE MICROSCOPIC (MICROSCOPIC)
[2025-07-28 11:14] LABS: Bilirubin,Urine Negative (Negative); Color,Urine YELLOW (Yellow); Glucose,Urine (UA) Negative (Negative); Ketones,Urine Negative (Negative); Leukocyte Esterase,Urine 2+ (Negative); PH,Urine 6.0 (5.0-8.5); Protein,Urine TRACE (Negative); Specific Gravity, Urine 1.020 (1.005-1.030); Urobilinogen,Urine 0.2 EU/dl (0.2)
[2025-07-28 11:23] LABS: Squamous Epithelial Cell,Urine Occasional #/hpf (0-5); WBC,Urine TNTC #/hpf (0-3)
[2025-07-28 11:24] LABS: Bacteria,Urine 4+ /lpf
== END 2025-07-28 23:59 | disposition home or self-care (01) ==
LOC: LAB.DROPOF 09:08
PROVIDERS: PCP Family Medicine; Visit Provider Family Medicine
DX: R30.0 Dysuria (principal)
CPT/HCPCS: 81001; 87086; 87088

== ENCOUNTER 2025-08-07 08:35 | Outpatient (CLI) | payer MEDICARE, SELFPAY ==
--- OUTSIDE RECORDS SUMMARY | 2025-02-05 08:00 | XMS_ITS | Encounter Summary ---
Author Organization [place] [address] Care Team Providers Care Supply Chain Procurement Manager Name Role Phone No Pcp, Per Patient Primary Care Provider Evelyne prabhakar Encounter Details Date Type Department Care Team (Latest Contact Info) Description 02/05/2025 8:00 AM EDT Hospital Encounter SE Referral Lab 1 [place] [address] Valentino Ugalde MD 47 [facility] [address] [place] [address] Encounter for general adult medical examination without abnormal findings Social History Tobacco Use Types Packs/Day Years Used Date Smoking Tobacco: Former Cigarettes Q uit: 1991 Passive Smoke Exposure: Past Smokeless Tobacco: Never Alcohol Use Standard Drinks/Week Comments Not Currently 0 (1 standard drink = 0.6 oz pur e alcohol) [facility] Utilities Answer Date Recorded In the past 12 months has [employer] electric, gas, oil, or water company threatened to shut off services in your home? No 06/23/2025 Overall Financial Resource Strain (CARDIA) Answe r Date Recorded How hard is it for you to pa y for the very basics like food, housing, medical care, and heating? Not very hard 06/23/2025 PHQ-2 Answer Date Recorded PHQ-2 Total Score 0 06/23/2025 [facility] [place] of Occupat ional Health - Occupational Stress [...] money to get more. Never true 06/23/2025 [facility] IP Transportation Answer D ate Recorded [...] 1:16 PM EDT Emiliano Jimenez RN * [place] Suicide Severity Rating Scale (Q shift for [...] EST Office Visit [facility] [address] [place] [address] [place] [phone] Vargas Wolf MD [address] [place] [address] [place] [address] Scheduled Orders Name Type Priority Associated [...] documented as of this encounter Care Teams Supply Chain Procurement Manager Relationship Specialty Start Date End Date No Pcp, Per Patient PCP - General 06/04/24 documented as of this encounter
--- OUTSIDE RECORDS SUMMARY | 2025-02-05 08:00 | XMS_ITS | Encounter Summary ---
Author Organization [place] [address] Care Team Providers Care Chair Name Role Phone No Pcp, Per Patient Primary Care Provider Evelyne prabhakar Encounter Details Date Type Department Care Team (Latest Contact Info) Description 02/05/2025 8:00 AM EDT Hospital Encounter SE Referral Lab 1 [place] [address] Valentino Ugalde MD 47 [facility] [address] [place] [address] Encounter for general adult medical examination without abnormal findings Social History Tobacco Use Types Packs/Day Years Used Date Smoking Tobacco: Former Cigarettes Q uit: 1991 Passive Smoke Exposure: Past Smokeless Tobacco: Never Alcohol Use Standard Drinks/Week Comments Not Currently 0 (1 standard drink = 0.6 oz pur e alcohol) [facility] Utilities Answer Date Recorded In the past 12 months has [employer] electric, gas, oil, or water company threatened to shut off services in your home? No 06/23/2025 Overall Financial Resource Strain (CARDIA) Answe r Date Recorded How hard is it for you to pa y for the very basics like food, housing, medical care, and heating? Not very hard 06/23/2025 PHQ-2 Answer Date Recorded PHQ-2 Total Score 0 06/23/2025 [facility] [place] of Occupat ional Health - Occupational [...] money to get more. Never true 06/23/2025 [facility] IP Transportation Answer D ate Recorded In [...] occasion? 0 04/30/2025 10:00 PM EDT Nayana aPtiño RN AUDIT-C to Determine Rows 4-10 0 [...] Author No Risk 06/23/2025 1:16 PM EDT Emiliaon Jimenez RN * [place] Suicide Severity Rating Scale (Q shift for [...] EST Office Visit [facility] [address] [place] [address] [place] [phone] Vargas Wolf MD [address] [place] [address] [place] [address] documented as of this encounter Results * (ABNORMAL) PREALBUMIN (02/12/2025 4:50 AM EDT) Prealbumin 8.9(L) .0 - 40.0 mg/dL 02/12/2025 7:15 AM EDT [facility] Blood VENOUS BLOOD / Unknown Venipuncture / Unknown 02/12/2025 4:50 AM EDT 02/12/2025 6:30 AM EDT us Valentino Ugalde MD CHEMISTRY ORDERABLES Final Resu lt [facility] 1 [facility] , [place] [address] documented in this encounter Visit Diagnoses Diagnosis Encounter for general adult medical examination without abnormal findings Routine general medical examination at a health care facility documented in this encounter Additional Health Concerns Infection Onset Date Last Indicated Resolved Time ESBL organism Comment:ESBL urine: 05/23, 06/1205/23/2025 06/12/2025 documented as of this encounter Care Teams Chair Relationship Specialty Start Date End Date No Pcp, Per Patient PCP - General 06/04/24 documented as of this encounter
--- OUTSIDE RECORDS SUMMARY | 2025-02-05 08:00 | XMS_ITS | Encounter Summary ---
Author Organization [place] [address] Care Team Providers Care Alley Worker Name Role Phone No Pcp, Per Patient Primary Care Provider Evelyne prabhakar Encounter Details Date Type Department Care Team (Latest Contact Info) Description 02/05/2025 8:00 AM EDT Hospital Encounter SE Referral Lab 1 [place] [address] Valentino Ugalde MD 47 [facility] [address] [place] [address] Encounter for general adult medical examination without abnormal findings Social History Tobacco Use Types Packs/Day Years Used Date Smoking Tobacco: Former Cigarettes Q uit: 1991 Passive Smoke Exposure: Past Smokeless Tobacco: Never Alcohol Use Standard Drinks/Week Comments Not Currently 0 (1 standard drink = 0.6 oz pur e alcohol) [facility] Utilities Answer Date Recorded In the past 12 months has [employer] electric, gas, oil, or water company threatened to shut off services in your home? No 06/23/2025 Overall Financial Resource Strain (CARDIA) Answe r Date Recorded How hard is it for you to pa y for the very basics like food, housing, medical care, and heating? Not very hard 06/23/2025 PHQ-2 Answer Date Recorded PHQ-2 Total Score 0 06/23/2025 [facility] [place] of Occupat ional Health - [...] to get more. Never true 06/23/2025 [facility] IP Transportation Answer D [...] 1:16 PM EDT Emiliano Jimenez RN * [place] Suicide Severity Rating Scale (Q shift for [...] 6) 0 06/23/2025 1:16 PM THERESET Denice Jimenez, MAHENDRA 6. Have you ever done anything, started to do anything, or prepared to do anything to end your life? 0 06/23/2025 1:16 PM EDT Bonifacio Jimenez RN documented as of this encounter Plan of Treatment Upcoming Encounters Date Type Department Care Team (Late st Contact Info) Description 08/19/2025 2:00 PM EST Office Visit [facility] [address] [place] [address] [place] [phone] Vargas Wolf MD [address] [place] [address] [place] [address] documented as of this encounter Results [...] recommended by the National Kidney Foundation - [place] Society of Nephrology Task Force. Blood VENOUS BLOOD / Unknown Venipuncture / Unknown 02/12/2025 4:50 AM EDT 02/12/2025 6:30 AM EDT us Valentino Ugalde MD CHEMISTRY ORDERABLES Final Resu lt [facility] [employer], [place] [address] [facility] , [address] [place] [id number] documented in this encounter Visit Diagnoses Diagnosis Encounter for general adult medical examination without abnormal findings Routine general medical examination at a health care facility documented in this encounter Additional Health Concerns Infection Onset Date Last Indicated Resolved Time ESBL organism Comment:ESBL urine: 05/23, 06/1205/23/2025 06/12/2025 documented as of this encounter Care Teams Alley Worker Relationship Specialty Start Date End Date No Pcp, Per Patient PCP - General 06/04/24 documented as of this encounter
--- OUTSIDE RECORDS SUMMARY | 2025-02-05 08:00 | XMS_ITS | Encounter Summary ---
Author Organization [place] [address] Care Team Providers Care Clay Carman Name Role Phone No Pcp, Per Patient Primary Care Provider Evelyne prabhakar Encounter Details Date Type Department Care Team (Latest Contact Info) Description 02/05/2025 8:00 AM EDT Hospital Encounter SE Referral Lab 1 [place] [address] Valentino Ugalde MD 47 [facility] [address] [place] [address] Encounter for general adult medical examination without abnormal findings Social History Tobacco Use Types Packs/Day Years Used Date Smoking Tobacco: Former Cigarettes Q uit: 1991 Passive Smoke Exposure: Past Smokeless Tobacco: Never Alcohol Use Standard Drinks/Week Comments Not Currently 0 (1 standard drink = 0.6 oz pur e alcohol) [facility] Utilities Answer Date Recorded In the past 12 months has [employer] electric, gas, oil, or water company threatened to shut off services in your home? No 06/23/2025 Overall Financial Resource Strain (CARDIA) Answe r Date Recorded How hard is it for you to pa y for the very basics like food, housing, medical care, and heating? Not very hard 06/23/2025 PHQ-2 Answer Date Recorded PHQ-2 Total Score 0 06/23/2025 [facility] [place] of Occupat ional Health - Occupational Stress [...] to get more. Never true 06/23/2025 [facility] IP Transportation Answer D ate [...] 1:16 PM EDT Emiliano Jimenez RN * [place] Suicide Severity Rating Scale (Q shift for [...] EST Office Visit [facility] [address] [place] [address] [place] [phone] Vargas Wolf MD [address] [place] [address] [place] [address] Scheduled Orders Name Type Priority Associated [...] documented as of this encounter Care Teams Clay Carman Relationship Specialty Start Date End Date No Pcp, Per Patient PCP - General 06/04/24 documented as of this encounter
--- OUTSIDE RECORDS SUMMARY | 2025-02-07 08:42 | XMS_ITS | Encounter Summary ---
Author Organization [place] [address] Care Team Providers Care Molder Shoulder Pad Name Role Phone No Pcp, Per Patient Primary Care Provider Evelyne prabhakar Encounter Details Date Type Department Care Team (Latest Contact Info) Description 02/07/2025 8:42 AM EDT Hospital Encounter [facility] Referral Lab 1 [place], [place] [phone] Encounter for general adult medical examination without abnormal findings Social History Tobacco Use Types Packs/Day Years Used Date Smoking Tobacco: Former Cigarettes Q uit: 1991 Passive Smoke Exposure: Past Smokeless Tobacco: Never Alcohol Use Standard Drinks/Week Comments Not Currently 0 (1 standard drink = 0.6 oz pur e alcohol) [facility] Utilities Answer Date Recorded In the past 12 months has [employer], gas, oil, or water [employer] threatened to shut off services in your home? No 06/23/2025 Overall Financial Resource Strain (CARDIA) Answe r Date Recorded How hard is it for you to pa y for the very basics like food, housing, medical care, and heating? Not very hard 06/23/2025 PHQ-2 Answer Date Recorded PHQ-2 Total Score 0 06/23/2025 [facility] [place] of Occupat ional Health - Occupational Stress [...] money to get more. Never true 06/23/2025 [facility] IP Transportation Answer D [...] 1:16 PM EDT Emiliano Jimenez RN * [place] Suicide Severity Rating Scale (Q shift for [...] EST Office Visit [facility] [address] [place] [address] [place] [phone] Vargas Wolf MD [address] [place] [address] [place] [address] Scheduled Orders Name Type Priority Associated [...] documented as of this encounter Care Teams Molder Shoulder Pad Relationship Specialty Start Date End Date No Pcp, Per Patient PCP - General 06/04/24 documented as of this encounter
--- OUTSIDE RECORDS SUMMARY | 2025-06-12 20:28 | XMS_ITS | Encounter Summary ---
Author Organization [place] [address] Care Team Providers Care Database Support Name Role Phone No Pcp, Per Patient Primary Care Provider Evelyne prabhakar Reason for Visit * Reason Comments Altered Mental Status Encounter Details Date Type Department Care Team (Late st Contact Info) Description 06/12/2025 8:28 PM EDT - 06/12/2025 11:17 PM EDT Emergency [facility] [address] [place] [address] Rhina Gooden, DO [address] [facility] [address] Acute UTI (Primary Dx) Discharge Disposition: Nursing Facility Social History Tobacco Use Types Packs/Day Years Used Date Smoking Tobacco: Former Cigarettes Q uit: 1991 Passive Smoke Exposure: Past Smokeless Tobacco: Never Alcohol Use Standard Drinks/Week Comments Not Currently 0 (1 standard drink = 0.6 oz pur e alcohol) [facility] Utilities Answer Date Recorded In the past 12 months has [employer], gas, oil, or water company threatened to shut off services in your home? No 05/01/2025 Overall Financial Resource Strain (CARDIA) Answe r Date Recorded How hard is it for you to pa y for the very basics like food, housing, medical care, and heating? Not hard at all 05/01/2025 PHQ-2 Answer Date Recorded PHQ-2 Total Score 0 05/01/2025 [facility] Occupat ional [facility] - Occupational Stress Questionnaire Answer [...] to get more. Never true 05/01/2025 [facility] IP Transportation Answer D ate Recorded In [...] 8:25 PM EDT Barb Cason RN * [place] Suicide Severity Rating Scale (Q shift for [...] * Urinary tract infection ??? Discharge instructions (Citizen Of [place]) documented in this encounter Medications at Time [...] Patch 06/11/2025 nalOXone (NARCAN) 4 mg/actuation Nasl [place], Non-Aerosol 0.1 mL by Nasal route as needed for Opioid Reversal. [place] the contents of one device (0.1mL) into [...] Departure Means Destination Comment s Nursing Facility [facility] documented in this encounter ED Notes * Gricelda Fernandes, MAHENDRA - 06/12/2025 11:13 PM EDT An After Visit Summary was printed, and reviewed with family. AVS and printed rx given to the [facility] team. [facility] present to take patient back to [facility]. * Renae Cason RN - 06/12/2025 10:57 PM EDT Report given to RN at [facility] * Rhina Gooden DO - 06/12/2025 8:22 [...] rehab today. She initially did not recognize Mcihelle and was extremely drowsy. Michelle reports that [...] HISTORY Past Medical History: Diagnosis Date A-fib ([facility]) Arthritis Blood circulation, collateral CAD (coronary artery disease) Cardiac dysrhythmia Carotid artery occlusion CHF (congestive heart failure) ([facility]) Diabetes mellitus ([facility]) not currently on meds,rehab discontued Difficult intravenous access possible use of iv therapy/ultrasound to help with venous access. RIVERA (dyspnea on exertion) Encounter for blood transfusion Fatty liver Glaucoma Heartburn Hyperlipidemia Hypertension Liver disease Mixed hyperlipidemia Peripheral vascular disease Renal disorder Renal insufficiency Shortness of breath Sleep apnea pt has cpap, but is not using. Stroke ([facility]) pt's states around 3 years [...] true Transportation Needs: No Transportation Needs (05/01/2025) [facility] IP Transportation In the past 12 months, has lack of reliable transportation kept you from medical appointments, meetings, work or from getting things needed for daily living?: No Physical Activity: Inactive (05/01/2025) Exercise Vital Sign Days of Exercise per Week: 0 days Minutes of Exercise per Session: 0 min Stress: No Stress Concern Present (05/01/2025) [place] Citizen [place] of Occupational Health - Occupational Stress Questionnaire Feeling of Stress : Not at all Received from [employer] ([place], [place], [place], [place]) Family and Community Support Intimate Partner Violence: Not At Risk (08/06/2024) Received from [facility] Humiliation, Afraid, Rape, and Kick questionnaire Fear of Current or Ex-Partner: No Emotionally Abused: No Physically Abused: No Sexually Abused: No Housing Stability: Low Risk (08/06/2024) Received from [facility] Housing Stability Vital Sign Unable [...] IR REVAS FEM POP ART UNILAT W CARPET SEWER 01/30/2025 IR REVAS FEM POP ART UNILAT W CARPET SEWER 01/30/2025 Vargas Wolf MD [facility] IR IR [...] hallux amputation; Surgeon: Dacia Mills DPM; Location: [facility]IN OR; Service: Podiatry CURRENT MEDICATIONS No [...] Rfl: 0 nalOXone (NARCAN) 4 mg/actuation Nasl [place], Non-Aerosol, 0.1 mL by Nasal route as needed for Opioid Reversal. [place] the contents of one device (0.1mL) into [...] 58.2 Imm Gran% 0.3 Lymph Percent 31.6 [place] Percent 9.6 Eos Percent 0.0 Baso Percent 0.3 Neut # 1.8 IMMGRAN# 0.0 Lymph # 1.0 (*) [place] # 0.3 Eos# 0.0 Baso # 0.0 [...] CULTURE. 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 UA and culture were ordered. UA demonstrated 4+ Leukocyte Esterase, >182 WBCs, 1+ Bacteria. Urine culture from 06/09 grew Klebsiella, E. coli and Proteus. Patient started on IV Rocephin for UTI. Patient is oriented and speaking with family members and medical team. She was informed of discharge plan and diagnosis of UTI. Patient discharged on Keflex and transported back to [facility] [place]. Patient was educated on importance of maintaining [...] edits as necessary. Rhina Gooden DO 06/12/25 [id number] documented in this encounter Plan of Treatment Upcoming Encounters Date Type Department Care Team (Late st Contact Info) Description 08/19/2025 2:00 PM EST Office Visit [facility] [address] [place] [address] [place] [phone] Vargas Wolf MD [address] [place] [id number] documented as of this encounter Procedures Procedure [...] - 51 mcmol/L 06/12/2025 9:50 PM EDT [facility] Blood VENOUS BLOOD / Unknown Venipuncture / Unknown 06/12/2025 9:22 PM EDT 06/12/2025 9:29 PM EDT Rhina Gooden DO CHEMISTRY ORDERABLES Final Res ult [facility] [address] [place] [address] * LACTIC ACID (06/12/2025 9:22 PM EDT) Lactic Acid 1.2 0.5 - 1.9 mmol/L 06/12/2025 9:50 PM EDT [facility] Blood VENOUS BLOOD / Unknown Venipuncture / Unknown 06/12/2025 9:22 PM EDT 06/12/2025 9:29 PM EDT us Rhina Gooden DO CHEMISTRY ORDERABLES Final Res ult Performing Organization Address City/[facility] [address]/ZIP Co de Phone Number [facility] [address] [place] [address] * (ABNORMAL) BLOOD GAS, VENOUS (06/12/2025 9:22 PM EDT) pH Venous 7.38 7.32 - 7.42 pH 06/12/2025 9:33 PM EDT [facility] pCO2 Venous 40(L) 41 - 51 mmHg 06/12/2025 9:33 PM EDT [facility] pO2 Venous 42(H) 25 - 40 mmHg 06/12/2025 9:33 PM EDT [facility] Comment:Interpret with cauti on. Not recommended to evaluate patient's oxygenation status. Base Excess Martín -1.3 mmol/L 9:33 PM EDT [facility] Hco3 Venous 23.7(L) 24.0 - 28.0 mmol/L 06/12/2025 9:33 PM EDT [facility] CO2 Total Martín 23(L) 25 - 29 mmol/L 06/12/2025 9:33 PM EDT [facility] O2 Sat. Venous 73.9(H) 40.0 - 70.0 % 06/12/2025 9:33 PM EDT [facility] Inspired O2 RA 06/12/2025 9:33 PM EDT [facility] Blood VENOUS BLOOD / Unknown Venipuncture / Unknown 06/12/2025 9:22 PM EDT 06/12/2025 9:29 PM EDT us Rhina Gooden DO CHEMISTRY ORDERABLES Final Res ult Performing Organization Address City/[facility] [address]/ZIP Co de Phone Number [facility] [address] [place] [address] * (ABNORMAL) COMPREHENSIVE METABOLIC PANEL (06/12/2025 9:22 PM EDT) Sodium 138 136 - 145 mmol/L 06/12/2025 9:50 [facility] Potassium 4.2 3.5 - 5.0 mmol/L 06/12/2025 9:50 PM [facility] Chloride 106 98 - 107 mmol/L 06/12/2025 9:50 PM [facility] Total CO2 23 22 - 29 mmol/L 06/12/2025 9:50 PM [facility] Anion Gap 9 7 - 16 mmol/L 06/12/2025 9:50 PM [facility] Calcium 9.5 8.8 - 10.4 mg/dL 06/12/2025 9:50 PM [facility] Glucose Lvl 126(H) 70 - 99 mg/dL 06/12/2025 9:50 PM [facility] BUN 25(H) 8 - 23 mg/dL 06/12/2025 9:50 PM [facility] Creatinine 0.95 0.51 - 1.30 mg/dL 06/12/2025 9:50 PM [facility] Albumin 3.6 3.2 - 4.6 gm/dL 06/12/2025 9:50 PM [facility] Total Protein 6.7 6.4 - 8.3 gm/dL 06/12/2025 9:50 PM [facility] Bili Total 0.9 0.2 - 1.3 mg/dL 06/12/2025 9:50 PM [facility] ALT 19 <=41 U/L 06/12/2025 9:50 PM [facility] AST 34 <=40 U/L 06/12/2025 9:50 PM [facility] Alk Phos 181(H) 36 - 123 U/L 06/12/2025 9:50 PM [facility] eGFR (CKD-EPIcr 2020) 58(L) >=60 mL/min/1.7 3 m2 06/12/2025 9:50 PM [facility] Comment:Estimated GFR was ca lculated using the CKD-EPIcr (2020) equation refit without race. The equation is recommended by the National Kidney Foundation - [place] [employer] Nephrology Task Force. Blood VENOUS BLOOD / Unknown Venipuncture / Unknown 06/12/2025 9:22 PM EDT 06/12/2025 9:29 PM EDT us Rhina Gooden DO CHEMISTRY ORDERABLES Final Res ult [facility] [address] [place], [place] [address] * (ABNORMAL) CBC WITH DIFF (06/12/2025 9:22 PM EDT) WBC 3.1(L) 3.7 - 10.3 x10(3)/mcL 06/12/2025 9:32 PM EDT [facility] RBC 2.30(L) 3.90 - 5.20 x10(6)/mcL 06/12/2025 9:32 PM EDT [facility] Hgb 8.4(L) 11.2 - 15.7 g/dL 06/12/2025 9:32 PM EDT [facility] Hct 24.7(L) 34.0 - 45.0 % 06/12/2025 9:32 PM EDT [facility] MCV 107.4(H) 80.0 - 100.0 fL 06/12/2025 9:32 PM EDT [facility] MCH 36.5(H) 26.0 - 34.0 pg 06/12/2025 9:32 PM EDT [facility] MCHC 34.0 30.7 - 35.5 g/dL 06/12/2025 9:32 PM EDT [facility] RDW 19.9(H) <=14.9 % 06/12/2025 9:32 PM EDT [facility] Platelet 103(L) 155 - 369 x10(3)/mcL 06/12/2025 9:32 PM EDT [facility] MPV 12.9(H) 8.8 - 12.5 fL 06/12/2025 9:32 PM EDT [facility] Neut Percent 58.2 % 06/12/2025 9:32 PM EDT [facility] Comment:Neutrophils equals s egs plus bands Imm Gran% 0.3 % 06/12/2025 9:32 PM EDT [facility] Comment:Automated count of m etamyelocytes, myelocytes and promyelocytes. Lymph Percent 31.6 % 06/12/2025 9:32 PM EDT [facility] [place] Percent 9.6 % 06/12/2025 9:32 PM EDT [facility] Eos Percent 0.0 % 06/12/2025 9:32 PM EDT [facility] Baso Percent 0.3 % 06/12/2025 9:32 PM EDT [facility] Neut # 1.8 1.6 - 6.1 x10(3)/[facility] 06/12/2025 9:32 PM EDT [facility] Comment:Neutrophils equals s egs plus bands IMMGRAN# 0.0 0.0 - 0.1 x10(3)/mcL 06/12/2025 9:32 PM EDT [facility] Comment:Automated count of m etamyelocytes, myelocytes and promyelocytes. An absolute IG <0.1 is reported as 0.0. Lymph # 1.0(L) 1.2 - 3.9 x10(3)/[facility] 06/12/2025 9:32 PM EDT [facility] [place] # 0.3 0.3 - 0.9 x10(3)/[facility] 06/12/2025 9:32 PM EDT [facility] Eos# 0.0 0.0 - 0.5 x10(3)/[facility] 06/12/2025 9:32 PM EDT [facility] Baso # 0.0 0.0 - 0.1 x10(3)/[facility] 06/12/2025 9:32 PM EDT [facility] Blood VENOUS BLOOD / Unknown Venipuncture / Unknown 06/12/2025 9:22 PM EDT 06/12/2025 9:29 PM EDT us Rhina Gooden DO HEMATOLOGY ORDERABLES Final Re sult [facility] [address] [place] [address] * (ABNORMAL) URINE CULTURE (NO STAIN) (06/12/2025 9:11 PM EDT) Culture Positive Growth(A) 06/15/2025 12:51 PM EDT [facility] Culture >100,000 CFU/mL Klebsiella pneumoniae SUSCEPTIB ILITY RESULT 06/15/2025 12:51 PM EDT [facility] Culture >100,000 CFU/mL Proteus mirabilis SUSCEPTIB ILITY RESULT 06/15/2025 12:51 PM EDT [facility] Comment: Confirmed positive for ESBL (extended spectrum [...] ORDERAB LES Final Result Performing Organization Address City/[facility] [address]/ZIP Co de Phone Number [facility] [place] [facility] [address] [facility] [address] [place] [phone] * EXTRA HUITRON URINE CX (06/12/2025 9:11 PM EDT) Urine STRUCTURE OF URINARY TRACT PROPER / Unknown 06/12/2025 9:11 PM EDT 06/12/2025 9:28 PM EDT us Rhina Gooden DO MICROBIOLOGY - GENERAL ORDERAB LES Final Result Performing Organization Address [facility] Co de Phone Number [facility] [address] [place] [address] * (ABNORMAL) URINALYSIS REFLEX (06/12/2025 9:11 PM EDT) UA Color Yellow 06/12/2025 9:37 PM EDT [facility] UA Appear Cloudy(A) Clear 06/12/2025 9:37 PM EDT [facility] UA Glucose Negative Negative mg/dL 06/12/2025 9:37 PM EDT [facility] UA Ketones Negative Negative mg/dL 06/12/2025 9:37 PM EDT [facility]A Blood Negative Negative 06/12/2025 9:37 PM EDT [facility] UA pH 6.0 5.0 - 8.0 pH 06/12/2025 9:37 PM EDT [facility] UA Protein Trace (10-20 mg/dL) Negative mg/dL 06/12/2025 9:37 PM EDT [facility]A Urobilinogen Normal <=1 mg/dL 9:37 PM EDT [facility] Bili Negative Negative 06/12/2025 9:37 PM EDT [facility] Nitrite Negative Negative 06/12/2025 9:37 PM EDT [facility]A Leuk Est 4+ (500 Ion/mcl)(A) Negative 06/12/2025 9:37 PM EDT [facility] UA Spec Grav 1.015 1.001 - 1.035 no units 06/12/2025 9:37 PM EDT [facility] Comment:Reference range helga d for random specimens only. UA WBC >182(H) 0 - 4 /HPF 06/12/2025 9:37 PM EDT [facility] UA RBC 1 0 - 3 /HPF 06/12/2025 9:37 PM EDT [facility] UA Squam Epi 4+ /LPF 06/12/2025 9:37 PM EDT [facility] UA Bacteria 1+(A) Negative /HPF 06/12/2025 9:37 PM EDT [facility] UA Trans Epi <1(H) <=0 /HPF 06/12/2025 9:37 PM EDT [facility] Urine STRUCTURE OF URINARY TRACT PROPER / Unknown 06/12/2025 9:11 PM EDT 06/12/2025 9:28 PM EDT Rhina Gooden DO URINE ORDERABLES Final Result [facility] [address] [place] [address] documented in this encounter Visit Diagnoses Diagnosis [...] documented as of this encounter Care Teams Database Support Relationship Specialty Start Date End Date No Pcp, Per Patient PCP - General 06/04/24 documented as of this encounter
--- OUTSIDE RECORDS SUMMARY | 2025-06-23 13:13 | XMS_ITS | Encounter Summary ---
Author Organization [place] [address] Care Team Providers Care College Administrator Name Role Phone No Pcp, Per Patient Primary Care Provider Evelyne prabhakar Reason for Visit * Reason Comments Atrial Fibrillation a fib rvr from [facility]. they report HR of 180, per squad HR 103. * Auth/Cert/Inpt (Routine) Specialty Diagnoses / Procedures Referred By Contac t Referred To Contact Diagnoses Atrial fibrillation with RVR (HCC) Paroxysmal atrial fibrillation (HCC) Referral ID Status Reason Start Date Expiration Date Visits Re quested Visits Authorized [id number] 1 1 Encounter Details Date Type Department Care Team (Latest Contact Info) Description 06/23/2025 1:13 PM EDT - 07/02/2025 10:57 AM EDT Hospital Encounter [facility] [address] [place] [address] Stephan Rodriguez MD [address] [place] [address] Duong Vitale MD [address] [place] [address] Atrial fibrillation with RVR (HCC) (Primary Dx); Acute pulmonary edema (HCC); Elevated troponin; Pleural effusion Discharge Disposition: Fdc Facility Social History Tobacco Use Types Packs/Day Years Used Date Smoking Tobacco: Former Cigarettes Q uit: 1991 Passive Smoke Exposure: Past Smokeless Tobacco: Never Alcohol Use Standard Drinks/Week Comments Not Currently 0 (1 standard drink = 0.6 oz pur e alcohol) [facility] Utilities Answer Date Recorded In [...] Date Recorded PHQ-2 Total Score 0 06/23/2025 [place] Occupat ional Health - Occupational Stress [...] money to get more. Never true 06/23/2025 [facility] IP Transportation [...] 1:16 PM EDT Emiliano Jimenez RN * [place] Suicide Severity Rating Scale (Q shift for [...] Horowitz MD - 07/02/2025 10:57 AM EDT [facility] Discharge Summary Patient Name: Skyler Bautista [...] 1 Patch, Transdermal, DAILY nalOXone 4 mg/actuation [place] [facility] Dose: 4 mg Qty: 1 Each Refills: 0 Commonly known as: NARCAN 4 mg, Nasal, PRN, [place] the contents of one device (0.1mL) into [...] Your Medications These medications were sent to [facility] [place] [address] [address] [facility] - [phone] [place] [address] fUROsemide 40 mg Tab gabapentin 300 mg Cap levETIRAcetam 750 mg Tab losartan 25 mg Tab metoprolol 25 mg Tab oxyCODONE 5 mg Tab Condition at Discharge: stable Disposition: SNF Follow-up: [facility] [address] [facility] [address] [place] [address] Call FOLLOW UP IN 2 WEEKS TO DISCUSS CATHETER, SOON IF YOU WOULD LIKE IT REMOED SOONER. [facility] [address] [address] Jacob Horowitz MD 07/02/2025 Time spent: More [...] Heart failure in adults ??? Discharge instructions (Kazakh) * Losartan (Kazakh) * Levetiracetam (Kazakh) * Metoprolol (Kazakh) documented in this encounter Medications at Time [...] Tablet 06/29/2025 nalOXone (NARCAN) 4 mg/actuation Nasl [place], Non-Aerosol 0.1 mL by Nasal route as needed for Opioid Reversal. [place] the contents of one device (0.1mL) into [...] Disposition Code Departure Means Destination Comment s Fdc Facility Car Other Facil mari Steen documented [...] Laboratory data and diagnostic testing reviewed 07/02/25. Jacbo Horowitz MD 07/02/2025 12:10 PM This note was generated using voice recognition technology. It has been reviewed by the undersigned, however, may still contain unintended errors * Chapin Meyers - 07/01/2025 6:25 PM EDT Images from the original note were not included. 07/01/25 1800 Reason for Visit Date of visit 07/01/25 Visited With Patient not available Visited By CPE Manager Enterprise Content Management Reason for Visit Hospitality visit;Spiritual, emotional or social support Patient Assessment Patient Christianity at Registration Sikhism Care Plan Plan for Follow-Up Hemmer Lockstitch(s) remains available as needed Chapin Meyers Hemmer Lockstitch, Pastoral and Spiritual Care For non-urgent requests, please place a Pastoral Care consult in [facility]. For all urgent matters, please send an urgent [facility] Secure Chat to the Pastoral Care group at your location. Between 11pm and 7am, please use On-Call Finder to send an [facility] Secure Chat to the on-call skiver sock linings. Pastoral Care office phone numbers: EDG/COV/GRT [phone], [place] [phone], FTT [phone], DBN [phone] * Kailee Mena BSW - 07/01/2025 3:43 PM EDT 07/01/25 1542 Discharge Planning Evaluation Actual Discharge Plan 9.15--SW FINAL NOTE. Patient is set for discharge to [facility] on Tuesday. Family to transport at 10 am. Nursing report number provided to staff. Patient admitted at [facility] loc. All parties updated and aware. No further needs noted. Final Note Post Acute Facility [facility] Post Acute Form Completed Yes Care Coordination [...] Comments #1 I'm leaving Others Present/Assisting Nicole MASTER CONTROL TECHNICIAN Therapy delay reason Patient refused * Manuel Frey RN - 07/01/2025 1:52 PM EDT Patient has been accepted to [facility] on Tuesday. nursing report number is [phone]. pharmacy has been changed.Family to provide transport at 10:00 am. please pass along to next shift. thanks! * Nicole Caicedo PTA - 07/01/2025 1:12 PM EDT 07/01/25 1125 PT Subjective Note Type Follow Up Treatment Attempt Patient Room/Unit TCU;4N PT Subjective Comments #1 pt refused to get up states leaving to [facility] in [place] attempted to redirect unsuccessfully. Therapy delay reason Patient declined * Kailee Mena BSW - 07/01/2025 10:54 AM EDT 07/01/25 1053 Ongoing Discharge Planning Evaluation Actual Discharge Plan 07.01-- UPDATE. SW left a few messages with [facility] admission coordinator to determine if patient is [...] injury Hold anticoagulation. Dispo: Discussed with RN, healthcare corporate account director. Awaiting facility in [place]. VTE Prophylaxis: Active Hospital Problems Diagnosis *Atrial [...] with RN. Awaiting placement for facility in [place]. VTE Prophylaxis: Active Hospital Problems Diagnosis *Atrial [...] does not want patient to go to [facility]. Looking for facility in [place]. VTE Prophylaxis: Active Hospital Problems Diagnosis *Atrial [...] does not want her to go to [place]. No nausea or vomiting. Objective: BP 140/90 [...] FAMILY WHO IS NOW DECLINING DISCHARGE TO [facility] AND WOULD LIKE TO HAVE [facility] EVALUATE FOR POTENTIAL ADMISSION. SW SPOKE WITH ТАТЬЯНА WITH ADMISSIONS [phone] WHO REQUESTED INFORMATION TO BE FAXED TO [phone] FOR REVIEW TO BE COMPLETED. FAMILY IS AWARE THATTHEY WILL NEED TO PROVIDE TRANSPORTATION TO FACILITY INSURANCE WILL NOT COVER THIS DISTANCE. CC WILL CONTACT FAMILY ONCE DECISION IS MADE FROM [facility]. SUJATA WITH [facility] AWARE OF [facility] CANCELLATION. TO FOLLOW. 06/28/25 6590 Discharge Planning Evaluation Actual Discharge Plan 06.28--NORA FINAL NOTE. Patient is set for discharge today. [facility] to provide transportation with supervisor opening and picking at 6:30. NORA updated nursing staff, family [...] Yes RN Notified of Plan Yes * Kmimie Schuler, YENY-RESEARCH SOFTWARE ENGINEER - 06/28/2025 10:28 AM EDT 06/28/25 0947 Speech Pathology Treatment Note Patient Seen Today? Yes Note Type Treatment/Progress Diet Recommendations Regular Solids;Thin Liquids Strategies/Maneuvers Upright positioning 90 degrees Medication administration With thin liquids Assistance/Supervision Independent RESEARCH SOFTWARE ENGINEER Recommendation No post discharge therapy recommended Hospital [...] transportation assistance. Scheduled with: KIRAN. Trip #: [id number] @ [phone] for 06-27-25 to [facility]. Patient and RN aware of tentative plan. 06/27/25 1521 Discharge Planning Evaluation Referral Type Transportation Transportation at Discharge Ambulance Transportation Options Private Pay Date Expected 06/27/25 Time Expected 1630 Transportation Location [facility] Transportation setup completed by [facility] Yes Post Acute Form Completed Yes * Dinorah Stubbs MSW - 06/27/2025 3:06 PM EDT 06/27/25 1505 Ongoing Discharge Planning Evaluation Discussed discharge plans with Patient/Family/Caregiver/Support Person Yes, Discussed with patient and caregiver/support person Discussed discharge plans with Care Team at [facility] Yes, with nurse in attendance;Yes, with doctor in attendance Discharge to SNF Actual Discharge Plan 06/27 NORA Final: Note per MD, pt is okay to d/c this date. NORA met pt at bedside and completed d/c round. Pt states her plan is to d/c to [facility] this date. Post Acute Placement consent form completed and placed in pt's chart. NORA notified pt's son, Egdar to notify of d/c plans. Pt states no needs or preferences. NORA contacted Sujata from [facility] and notified of d/c time and date. Nurse updated. MD stated pt is not medically ready for d/c. NORA notified family, [facility] and [facility] of change. Edgar states he will contact family members. SW following. Final Note Post Acute Facility [facility] Post Acute Form Completed Yes Care Coordination Discharge Ready? Yes Transportation at Discharge Ambulance Date Expected 06/28/25 Transportation Assign to [facility] Yes PASAR Completed Not Applicable Patient Aware and Agrees with DC Plan Yes Primary Caregiver/Legal Decision Maker aware and agree with Discharge Plan Yes Name of Family member notified Edgar Family Member Notified Relationship to Patient Legal Next of Kin Aware of Plan Yes RN Notified of Plan Yes * Marifer NicoleMIKE - 06/27/2025 11:48 AM EDT 06/27/25 1110 [...] EDT Heart & Vascular Progress Note PATIENT: [facility] Day 3 Cardiology following for: afib [...] hours have been reviewed Telemetry: afib controlled [id number] Stroke Risk Points: 9 Values used to [...] pleural effusions and dependent opacities - atelectasis -MASTER CONTROL TECHNICIAN lasix PRN -s/p IV diuresis - transition to PO lasix 40 mg -Continue lopressor 25 mg BID - can plan to change to Toprol prior to discharge -Start losartan 25 mg Coronary Artery Disease -Remote history of CABG 1992 and subsequent PCIs -MASTER CONTROL TECHNICIAN lipitor 40 mg, coreg 25 mg BID, ranexa 500 mg BID History of PE 2010 History Antiphospholipid Syndrome -No MASTER CONTROL TECHNICIAN AC with history of ICH Elevated Troponin -Troponin 92, 83 -EKG afib RVR -ECHO (06/24/2025) LVEF 45-50%. Mild MR. Severe TR. -No angina Type 2 Diabetes -A1c 5.3 Hypertension -MASTER CONTROL TECHNICIAN coreg 25 mg BID -Currently on lopressor 25 mg BID -Start losartan 25 mg Hyperlipidemia -MASTER CONTROL TECHNICIAN lipitor 40 mg Carotid Stenosis Peripheral Vascular Disease -s/p recent left AKA Plan: Doing well rates controlled, no bradycardia - continue lopressor 25 mg BID - would plan to change to Toprol at discharge with midrange EF Start losartan 25 mg Can plan to add additional GDMT as outpatient Further input from Dr Garner. Lianet Harris, PERFUME AND TOILET WATER MAKER, Heart and Vascular 06/27/2025 Disposition Perspective - [...] as of 05/24/2025, who was admitted from care home with rapid atrial fibrillation and acute hypoxic respiratory failure. ECG on admission w/ rapid atrial fibrillation, possible old anteroseptal PA Hs Trop 92-83 NT Pro BNP [address] [facility] 11/25/2022- 1. CAD s/p CABG 2 [...] Continue atorvastatin for CAD Sukh Garner DO, [facility] * David Lopez RPH - 06/27/2025 9:30 [...] & Critical Care Medicine * Miryam Guzman, PERFUME AND TOILET WATER MAKER - 06/26/2025 3:08 PM EDT Images from [...] presented to the ED on 06/[address] [facility] with findings of A fib RVR. She also was hypotensive and bradycardic. She was in the ICU and intubate for the past several days. Nildahas medically improved and is now extubated, alert [...] evaluation of the kidneys and bladder with textile machinery sales representative images and planning director notes sent to PACS for radiologist review. [...] before the facility discharge Admitting Diagnosis From [facility], dx Acute respiratory failure with hypoxia int/ext for one day, A-fib with tachybradycardia, seizure-like activity Past Med Hx L RAMIREZA 05/24/25 Precautions Therapy Precautions Yes Precaution Info Given Yes;Contact;To use call light to request assistance with all mobility Other precautions ESBL Home Living/Prior Function Level of Assistance Needs assistance with ADLs;Needs assistance with homemaking;Needs assistance with functional transfers (@ SNF) Fall History No falls in the last three months Additional Comments Has been at [facility] since Left AKA 05/24, plan is [...] Dominance Right Gross Grasp Functional Coordination Functional Nursery Technician Strength WFL Coord/Sensation Assessed Grossly Intact/Normal Perception [...] therapy recommended. Time In / Time Out [id number] IP OT Evaluation Minutes 8 IP OT [...] from IV formulation to acetaminophen 650 mg PO/MN every 4 hours PRN per protocol. Thanks! Roni Spicer PharmD * Denisa Armando RD,LD - 06/26/2025 2:[address] [facility] Nutrition Malnutrition Reassessment Evidence Supported Malnutrition [...] Status: Active nutrition diagnosis Nutrition Prescription: Kcals: 3512-9553 kcal (25-30 kcal/55.7 kg) Protein (g): 67-84 [...] Comment: OGT removed with extubation yesterday, passed RESEARCH SOFTWARE ENGINEER eval this am and oral diet ashley [...] Supplement Acceptance: drinks 2 strawberry Glucerna daily captain/check airman Tube Feeding?: No (d/c'd yesterday with extubation) Chewing Difficulty: No Swallowing Difficulty: No (RESEARCH SOFTWARE ENGINEER jayda completed) Energy Intake: Other (comment) (denies [...] Stool Occurrence: 1 Stool Appearance: Type 5 [place] Stool Chart Stool Color: Brown Stool Amount: Medium Biochemical Data/Medical Tests: Pertinent Labs: gluc 95, H/H 9.0/27.4, BNP 7743 Pertinent Medical Tests/Procedures: 05/24- intubated, OGT removed with extubation. 06/25-06/25 NGT Clinical Course: Clinical Course: Admitted from [place] d/t Afib w/AVR, CP w/elevated troponin, CHFand Acute Pulm edema-lasix prescribed, Anemia, Intubated 05/24 d/t unresponsiveness and seizure like activity. 06/25 extubated, RESEARCH SOFTWARE ENGINEER following-oral diet advanced * Cely Luna MSW - 06/26/2025 1:46 PM EDT 06/26/25 1343 Ongoing Discharge Planning Evaluation Completed by CC/SW Yes Caregiver Name Edgar Buitargo - son Caregiver Anticipated post-acute care needs Nursing Facility Discussed discharge plans with Care Team at [facility] Yes, with nurse in attendance Patient's goals for recovery Return to Prior Level of Functioning Repisodic List provided N/A - Resumption care. Patient active with post acute partner prior to admission Discharge to SNF Actual Discharge Plan 06/26/2025 SW(UPDATE): Pt admitted with atrial fibrillation with RVR, acute pulmonary edema, elevated troponin and pleural effusion. Pt was at [facility] for SNF prior to admission. A [...] findings. Right paranasal sinus disease. On p.o. [facility] Neurology consulted. Acute on chronic diastolic [...] may still contain unintended errors * Sukh Garner DO - 06/26/2025 10:22 AM EDT Heart [...] pleural effusions and dependent opacities - atelectasis -MASTER CONTROL TECHNICIAN lasix PRN -Currently on IV diuresis this admission -Volume status appears to be improving Coronary Artery Disease -Remote history of CABG and subsequent PCIs -MASTER CONTROL TECHNICIAN lipitor 40 mg, coreg 25 mg BID, ranexa 500 mg BID History of PE -No MASTER CONTROL TECHNICIAN AC with history of ICH Elevated Troponin -Troponin 92, 83 -EKG afib RVR -ECHO as above Type 2 Diabetes -A1c 5.3 Hypertension -MASTER CONTROL TECHNICIAN coreg 25 mg BID Hyperlipidemia -MASTER CONTROL TECHNICIAN lipitor 40 mg Peripheral Vascular Disease -s/p recent left AKA Plan: Seems to be tolerating po BB rates controlled 90's -2949 since admission -2250 overnight Cr remains stable BNP increased from previous 5011...7743 Possible need for ppm tachy/amber Further input from Dr Pascual Vela, PERFUME AND TOILET WATER MAKER, Heart and Vascular 06/26/2025 Disposition Perspective - [...] as of 05/24/2025, who was admitted from care home with rapid atrial fibrillation and acute hypoxic respiratory failure. A fib w/ RVR on admission, placed on dilt gtt, became bradycardic and hypotension, had subsequent PEA arrest, now s/p ETT and left IJ central line. ECG on admission w/ rapid atrial fibrillation, possible old anteroseptal PA Hs Trop 92-83 NT Pro BNP [address] [facility] 11/25/2022- 1. CAD s/p CABG 2 [...] atorvastatin. Sukh Garner DO, FACC * Isidro Clifford, RN - 06/26/2025 12:53 AM EDT Images [...] ICU Length of Stay: 2 days Plan: Apprentice Electrician monitoring Continue current diet order CLABSI Prevention [...] Plan Exist Discharge Planning Fall Protection Meds: MASTER CONTROL TECHNICIAN Meds Meds: Pharmacy Verified Mobility Patient Education [...] w/ water and ice chips - pending RESEARCH SOFTWARE ENGINEER consult and evaluation tomorrow * Jeannette Camarillo [...] the RN and the care they're receiving. TURRET LATHE SET UP OPERATOR notified and spoke with family. Charge nurse [...] Mechanical Ventilation Vent Mode: SPONT (switch by Pulkentrell ESCOBEDO an hour ago per nurse and MD) Set Rate: 16 br/min Vt Set: 400 PEEP: 8 cmH20 Plateau Pressure (Ppl): 22 [id number] Airway Size: 7.5 Lab Results Component Value [...] fUROsemide 40 mg Intravenous Daily Insulin Calculator (FEDERAL DISTRICT CLERK) - FSBS (Correction Only) Intake Input 1 [...] neurology follow up needed * Courtney Lloyd, SODIUM CHLORITE OPERATOR - 06/25/2025 11:32 AM EDT 06/25/25 1105 [...] Daily Oxygen Charge Initial Airway Care $ RC Airway Care Charge [...] findings. Right paranasal sinus disease. On p.o. [facility] Neurology consulted. Acute on chronic [...] AKA noelle in place. Neurological: Bilateral hand plaster molder strength 5/5 Skin: Skin is warm and [...] team members: 32 min * Sukh Garner, - 06/25/2025 7:[address] [facility] Follow Up Note Admit Date: 06/23/2025 Provider: Duong Vitale MD CC: Chief Complaint Patient presents with Atrial Fibrillation a fib rvr from [facility]. they report HR of 180, per squad [...] MISCELLANEOUS PRN Spencer Luna APRN Insulin Calculator (FEDERAL DISTRICT CLERK) - FSBS (Correction Only) Intake Input 1 [...] as of 05/24/2025, who was admitted from care home with rapid atrial fibrillation and acute hypoxic respiratory failure. A fib w/ RVR on admission, placed on dilt gtt, became bradycardic and hypotension, had subsequent PEA arrest, now s/p ETT and left IJ central line. ECG on admission w/ rapid atrial fibrillation, possible old anteroseptal PA Hs Trop 92-83 NT Pro BNP [address] [facility] 11/25/2022- 1. CAD s/p CABG 2 [...] overall guarded prognosis Signed: Sukh Garner DO, [facility] * Isidro Clifford, MAHENDRA - 06/25/2025 [...] 06/24/25 0815 06/24/25 1216 06/24/25 1619 06/24/25 17106/24/252006 GLU 229* -- -- -- -- -- [...] ICU Length of Stay: 1 days Plan: Apprentice Electrician monitoring CLABSI Prevention CHG Application: Completed (06/24/25 05) Central Line LDAs CVC Line Duration CVC [...] Plan Exist Discharge Planning Fall Protection Meds: MASTER CONTROL TECHNICIAN Meds Meds: Pharmacy Verified Mobility Patient Education [...] Vent -ICU -overnight events noted -discussed w asphalt tar and gravel roofer -Vent bundle NG feeds ---Nutrition following Atrial fibrillation with RVR (HCC) ICU -Cardizem drip stopped last PM before rapid response and resp arrest -Coreg ( HOLDING) -Cards eval pending -Recent Echo reviewed -NSR this AM History of pulmonary embolus (PE) No current AC -hx Sub Arachnoid bleed Hypertension associated with diabetes (HCC) Coreg HELD -Recent A1C 5.4 -NG feeds and FEDERAL DISTRICT CLERK for sugars now that in ICU Acute [...] Specimen: Blood, Venous Triglyceride 107 mg/dL 06/24/25 05 COMPREHENSIVE METABOLIC PANEL Collected: 06/24/25 05 Final [...] 172 Low mmHg TCO2 21 Low mmol/L 06/24/25533 CBC Collected: 06/24/25509 Final result Specimen: Blood, [...] RD,LD - 06/24/2025 9:[address] [facility] Nutrition Malnutrition Reassessment Evidence Supported Malnutrition [...] L-AKA Clinical Course: Clinical Course: Admitted from [place] d/t Afib w/AVR, CP w/elevated troponin, CHFand Acute Pulm edema-lasix prescribed, Anemia, Intubated 05/24 d/t unresponsiveness and seizure like activity * Eleuterio Renteria S, SODIUM CHLORITE OPERATOR - 06/24/2025 7:42 AM EDT 06/24/25 0742 [...] $Pt/Vent Assessment Service Code Completed Vent ID [id number] O2 Device Ventilator Vent Type (S)CMV+ Vent [...] - Brief Progress Note PERMANENT 06/24/2025 04:06 [facility] - ICU - 18 - F, SKYLER CAI Date of Service 06/24/2025 04:06 HPI/Events of Note [facility] Provider Assessment Note Ms. Bautista is an [...] sensitivity factor correctional insulin q.4 hours [facility] for any needs if bedside physician is [...] called and will be coming in from [place], [place] Belongings were charted and skin on [...] Dry, No erythema, No rash. Extremities: Left [id number] amputation with noelle at stump. Neurologic: Obtunded [...] person interview with family/friend (Identify) (Niece - Sahnnon Prince) Pt identified support person Family Who [...] Manual Patient's Living Arrangments Prior to Admission? [facility] Facility Name [facility] - SNF Support Systems Children;Family Members Is PCP listed on facesheet correct? No Who does patient report as PCP? Dr. Howell in [place], [place] Identified psychosocial/financial issues Assist with discharge arrangement for patients transferring to SNF's Follow Up Assigned To: Referral not needed concern identified and addressed by Sawdust Drier Anticipated post-acute care needs Nursing Facility ED [...] ED CC INITIAL: Met with patient and Niece (Shannon) at bedside in ED.Patient is being admitted with Atrial fibrillation with RVR, Acute pulmonary edema, Elevated troponin and Pleural effusion. GARCIA explained, signed and placed on chart. Patient currently at [facility] for SNF. Patient wishes to return at discharge to complete therapy. Resumption referral sent via [facility]. Mostly independent with ADLs. DME includes a MWC. PCP is Dr. Howell in [place], [place]. Pharmacy needsbeing met through [facility]. No issues with medication affordability. SDOH completed. No needs identified at this time. Anticipate Niece (Shannon) to transport at discharge. CC to follow. * Chio Garber, MAHENDRA - 06/23/2025 4:13 PM EDT 06/23/25 1612 [...] In the past 12 months has the [employer], gas, oil, or water [employer] threatened to shut off services in your [...] Do you speak a language other than Kazakh at home? No Do you want help [...] with Atrial Fibrillation a fib rvr from [facility]. they report HR of 180, per squad HR 103. History of Present Illness: Skyler Bautista is a 84 y.o. female admitted thru the ER after being sent by [facility] for increasing dyspnea and tachycardia. Found to have Afib w RVR by EMS and now on cardizem drip w sx improved.Also given Lasix for Pulm edema in ER. PT has had increasing SX for 3-4 days. Her heart rates were apparently in the 180s at the care home per care home. EMS states that her heart rates are [...] IR REVAS FEM POP ART UNILAT W MASTER CONTROL TECHNICIAN 01/30/2025 IR REVAS FEM POP ART UNILAT W MASTER CONTROL TECHNICIAN 01/30/2025 Vargas Wolf MD EDG IR IR [...] true Transportation Needs: No Transportation Needs (05/01/2025) [facility] IP Transportation In the past 12 months, has lack of reliable transportation kept you from medical appointments, meetings, work or from getting things needed for daily living?: No Physical Activity: Inactive (05/01/2025) Exercise Vital Sign Days of Exercise per Week: 0 days Minutes of Exercise per Session: 0 min Stress: No Stress Concern Present (05/01/2025) [employer] - Occupational Stress Questionnaire Feeling of Stress : Not at all Received from [facility] ([place], [place], [place], [place]) Family and Community Support Intimate Partner Violence: Not At Risk (08/06/2024) Received from [facility] Humiliation, Afraid, Rape, and Kick questionnaire Fear of Current or Ex-Partner: No Emotionally Abused: No Physically Abused: No Sexually Abused: No Housing Stability: Low Risk (08/06/2024) Received from [facility] Housing Stability Vital Sign Unable to [...] 06/23/25 1611 Final result Specimen: Blood, Venous kn-vEemuhawb-J 2HR 83 High ng/L hs-cTnT 2Hr Delta from Baseline -9 ng/L 06/23/25 1410 TROPONIN-T HIGH SENSITIVITY BASELINE W/ REFLEX Collected: 06/23/25 132 Final result Specimen: Blood, Venous rd-cXwobzbuk-Q 92 High ng/L 06/23/25 1358 BASIC METABOLIC [...] arch aneurysm. No pneumothorax. Small left and ebgvq-rx-mxjdwzpc right pleural effusions. Emphysema. Opacities dependently in [...] Interpretation by physician to follow. 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 06/26/2025 Skyler Bautista 1940 [id number] Reason for Consult: Urinary retention Requesting Physician: Duong Vitale MD History Obtained From: Patient, chart review HISTORY OF PRESENT ILLNESS: The patient is a 84 y.o. female with a PMHx of PAD, CHF, Afib, CKD, DM, admitted on 06/23/2025 to [facility] for AFIB with RVR. She is currently in ICU for AFIB with tachycardia, seizure like activity, acute on chronic HF. Urology has been consulted for Urinary Retention. Patient with elevated PVRs, has been straight cath for 850cc several times since admission. Indwelling garrido placed last night, 06/25/2025, by FANCY WIRE DRAWER. Of note, the patient was seen by [...] IR REVAS FEM POP ART UNILAT W MASTER CONTROL TECHNICIAN 01/30/2025 IR REVAS FEM POP ART UNILAT W MASTER CONTROL TECHNICIAN 01/30/2025 Vargas Wolf MD [facility] IR IR [...] has cpap, but is not using. Stroke ([facility]) pt's states around 3 years ago. [...] of pulmonary embolus (PE) Paroxysmal atrial fibrillation ([facility]) Type 2 diabetes mellitus, without long-term current use of insulin (HCC) Hypertension associated with diabetes ([facility]) No current facility-administered medications on file prior [...] Patch 0 nalOXone (NARCAN) 4 mg/actuation Nasl [place], Non-Aerosol 0.1 mL by Nasal route as needed for OpioidReversal. [place] the contents of one device (0.1mL) into [...] AM EDTAssociated Order(s): IP CONSULT TO MEDICAL SECURITY OPERATIONS CENTER OPERATOR Images from the original note were not included. PULMONARY / CRITICAL CARE CONSULT NOTE Spencer Dre Luna, PERFUME AND TOILET WATER MAKER 06/24/2025 Patient: Skyler Bautista 84 y.o. female Date of Admission: 06/23/2025 Admitting Provider: Duong Vitale MD CC: Chief Complaint Patient presents with Atrial Fibrillation a fib rvr from [facility]. they report HR of 180, per squad HR 103. Skyler Bautista is a(n)84 y.o. female is being evaluated following ICU admission for acute hypoxic respiratory failure, seizures and bradycardia. HPI: Ms. Bautista is an 84 year old female with a PMHx significant for A-fib, PE, HFpEF, subarachnoid hemorrhage, TBI, T2DM, CKD, PVD, and recent left AKA. She was at a care home after recent admission for AKA with complaints [...] amputation of the left foot; Surgeon: Dacia Milsl DPM; Location: [facility] MAIN OR; Service: Podiatry [...] IR REVAS FEM POP ART UNILAT W MASTER CONTROL TECHNICIAN 01/30/2025 IR REVAS FEM POP ART UNILAT W MASTER CONTROL TECHNICIAN 01/30/2025 Vargas Wolf MD [facility] IR IR [...] hallux amputation; Surgeon: Dacia Mills DPM; Location: [facility] MAIN OR; Service: Podiatry FH: No [...] true Transportation Needs: No Transportation Needs (06/23/2025) [facility] IP Transportation In the past 12 months, has lack of reliable transportation kept you from medical appointments, meetings, work or from getting things needed for daily living?: No Physical Activity: Inactive (06/23/2025) Exercise Vital Sign Days of Exercise per Week: 0 days Minutes of Exercise per Session: 0 min Stress: No Stress Concern Present (06/23/2025) [employer] - Occupational Stress Questionnaire Feeling of Stress : Not at all Social Connections: Low Risk (10/30/2023) Received from [facility] ([place], [place], [place], [place]) Family and Community Support Help with Day to Day Activities: Not on file Feeling Lonely or Isolated: Not on file Intimate Partner Violence: Not At Risk (08/06/2024) Received from [facility] Humiliation, Afraid, Rape, and Kick questionnaire Fear of Current or Ex-Partner: No Emotionally Abused: No Physically Abused: No Sexually Abused: No Housing Stability: Low Risk (08/06/2024) Received from [facility] Housing Stability Vital Sign Unable to [...] fUROsemide 40 mg Intravenous Daily Insulin Calculator (FEDERAL DISTRICT CLERK) - FSBS (Correction Only) Intake Input 1 [...] 0 Taking nalOXone (NARCAN) 4 mg/actuation Nasl [place], Non-Aerosol 0.1 mL by Nasal route as needed for OpioidReversal. 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 EK EKG [address] 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 No pneumothorax. Small left and ijcol-jk-bfyjvmuh right pleural effusions. Emphysema. Opacities dependently in [...] ordered Insulin Regimen: Q4H CCI Last BM: MASTER CONTROL TECHNICIAN Assessment Acute hypoxic respiratory failure Seizure Atrial [...] GI prophylaxis: Protonix CODE status: DNR Limited PERFUME AND TOILET WATER MAKER critical care time: 17 minutes Spencer Luna [...] assessment, and discussed the plan with the TURRET LATHE SET UP OPERATOR. Please see my note below for additional [...] and Critical Care Medicine * Sukh Garner, DO - 06/24/2025 10:18 AM EDTAssociated Order(s): IP [...] 06/23* forshortness of breath. She was at care home recovering from recent AKA and developed shortness of breath for four days MASTER CONTROL TECHNICIAN. In the ED she was noted to [...] years ago. Urinary incontinence Urinary tract infection MASTER CONTROL TECHNICIAN Medications: Prior to Admission medications Medication Sig [...] Montiel MD nalOXone (NARCAN) 4 mg/actuation Nasl [place], Non-Aerosol 0.1 mL by Nasal route as needed for OpioidReversal. [place] the contents of one device (0.1mL) into [...] 40 mg Intravenous BID Diuretic Insulin Calculator (FEDERAL DISTRICT CLERK) - FSBS (Correction Only) Intake Input 1 [...] IR REVAS FEM POP ART UNILAT W MASTER CONTROL TECHNICIAN 01/30/2025 IR REVAS FEM POP ART UNILAT W MASTER CONTROL TECHNICIAN 01/30/2025 Vargas Wolf MD [facility] IR IR [...] Active Problem List Diagnosis Coronary arteriosclerosis in [place] artery // Hx of CABG Closed nondisplaced [...] left foot Exostosis of toe Atherosclerosis of [place] artery of extremity Abscess of toe of [...] most recent cardiovascular imaging studies available in [facility] EMR were reviewed at time of consultation [...] pleural effusions and dependent opacities - atelectasis -MASTER CONTROL TECHNICIAN lasix PRN -Currently on IV diuresis this admission -Volume status appears to be improving - likely transition to PO tomorrow Coronary Artery Disease -Remote history of CABG and subsequent PCIs -MASTER CONTROL TECHNICIAN lipitor 40 mg, coreg 25 mg BID, ranexa 500 mg BID History of PE -No MASTER CONTROL TECHNICIAN AC with history of ICH Elevated Troponin -Troponin 92, 83 -EKG afib RVR -ECHO pending Type 2 Diabetes -A1c 5.3 Hypertension -MASTER CONTROL TECHNICIAN coreg 25 mg BID Hyperlipidemia -MASTER CONTROL TECHNICIAN lipitor 40 mg Peripheral Vascular Disease -s/p [...] as of 05/24/2025, who was admitted from care home with rapid atrial fibrillation and acute hypoxic respiratory failure. A fib w/ RVR on admission, placed on dilt gtt, became bradycardic and hypotension, had subsequent PEA arrest, now s/p ETT and left IJ central line. ECG on admission w/ rapid atrial fibrillation, possible old anteroseptal PA Hs Trop 92-83 NT Pro BNP [address] 11/25/2022- 1. CAD s/p CABG 2 [...] comorbidities, overall guarded prognosis. Sukh Garner DO, FACC documented in this encounter ED Notes * Bart Fallon - 06/23/2025 3:44 PM EDT Lab called and said patient's mint green top needs redrawn. * Bart Fallon - 06/23/2025 3:42 PM EDT Paged cardiology about consult on patient. * Stephan Rodriguez MD - 06/23/2025 1:13 PM EDT Chief Complaint Patient presents with Atrial Fibrillation a fib rvr from [facility]. they report HR of 180, per squad HR 103. This is an 84-year-old female with a history of atrial fibrillation, diabetes mellitus, hypertension, CHF, peripheral vascular disease who presents to the emergency department by squad from the care home for evaluation. The patient has been short of breath for the last 4 to 5 days. She states that it is better when they have placed her on oxygen, but she is not normally on oxygen. Her heart rates were apparently in the 180s at the care home per care home. EMS states that her heart rates are [...] Montiel MD nalOXone (NARCAN) 4 mg/actuation Nasl [place], Non-Aerosol 0.1 mL by Nasal route as needed for OpioidReversal. [place] the contents of one device (0.1mL) into one nostril upon signs of opioid overdose. Call 911. May repeat dose in other nostril if no response within 2-3 minutes. 02/04/25 Flaco Caban MD nortriptyline (PAMELOR) 10 mg Oral Capsule Take 1 Capsule by mouth nightly. 06/10/25 Trino oMntiel MD oxyCODONE (ROXICODONE) 5 mg Oral Tablet Take 1-2 Tablets by mouth every 4 hours as needed for AcutePain (R52). 06/10/25 Trino Motniel MD pantoprazole (PROTONIX) 40 mg Oral Tablet, [...] IR REVAS FEM POP ART UNILAT W MASTER CONTROL TECHNICIAN 01/30/2025 IR REVAS FEM POP ART UNILAT W MASTER CONTROL TECHNICIAN 01/30/2025 Vargas Wolf MD [facility] IR IR [...] present. Musculoskeletal: Comments: There is a left zhhag-mfk-vozc amputation. Skin: Findings: No erythema. Neurological: General: [...] arch aneurysm. No pneumothorax. Small left and hccni-ig-tookwhjy right pleural effusions. Emphysema. 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 History was obtained from the patient, EMS, the care home, and review of previous medical records. Differential [...] performed to rule out pulmonary embolism. 1417 za-eKdabpcnf-U(!): 92 Troponin elevated. This will be trended. [...] injury Hold anticoagulation. Dispo: Discussed with RN, healthcare corporate account director. Awaiting facility in [place]. * Utilization Review Notes - Dacia Peters RN - 06/27/2025 12:23 PM EDT CONT'D STAY REVIEW ON JOSELO 4NW TELEMETRY FOR Acute respiratory failure with hypoxia, RESP ARREST, AFIB WITH RVR + IP ORDER ON CHART ADMIT 06/23/25 OBS; INPATIENT 06/24/25 EXTUBATED 06/25/25 TELEMETRY, PT/LP-UGYZKXVRFO-PMAUEOFED-VASCULAR SURGERY FOLLOWING, INSULIN PROTOCOL, KEPPRA PO BID [...] * Plan of Care - Charlee Turner CCC-RESEARCH SOFTWARE ENGINEER - 06/26/2025 11:03 AM EDT Clinical Swallow [...] Today? Yes Note Type Evaluation Time In 08 Time Out 0855 Admitting Diagnosis Afib Speech Therapy Related Diagnosis R13.10 Dysphagia unspecified Date of onset 06/24/25 Pertinent and Past Medical History Afib RVR on admission from [facility] for rehab post AKA on Lleg [...] Goal none voiced Patient/Family Education Completed Yes RESEARCH SOFTWARE ENGINEER Recommendation No post discharge therapy recommended Frequency/Follow [...] through ED Atrial Fibrillation-a fib rvr from [facility]. they report HR of 180, per squad [...] EST Office Visit [facility] [address] [place] [address] [place] [id number] Vargas Wolf MD [address] [place] [id number] Pending Results Name Type Priority Associated [...] were not included. 06/26/2025 Skyler Bautista 1940 [id number] Reason for Consult: Urinary retention Requesting Physician: Duong Vitale MD History Obtained From: Patient, chart review HISTORY OF PRESENT ILLNESS: The patient is a 84 y.o. female with a PMHx of PAD, CHF, Afib,CKD, DM, admitted on 06/23/2025 to [facility] for AFIB with RVR. She iscurrently in ICU for AFIB with tachycardia, seizure like activity, acuteon chronic HF. Urology has been consulted for Urinary Retention. Patientwith elevated PVRs, has been straight cath for 850cc several times sinceadmission. Indwelling garrido placed last night, 06/25/2025, by FANCY WIRE DRAWERJessi Marcum, the patient was seen by our [...] IR REVAS FEM POP ART UNILAT W MASTER CONTROL TECHNICIAN 01/30/2025 IR REVAS FEM POP ART UNILAT W MASTER CONTROL TECHNICIAN 01/30/2025 Vargas Wolf MD [facility] IR IR [...] 12:16 PM EDT IP CONSULT TO MEDICAL SECURITY OPERATIONS CENTER OPERATOR Routine 06/24/2025 11:57 AM EDT Procedure Note - Spencer Luna APRN - 06/24/2025 11:46 AM EDTThis note is in progress. Images from the original note were not included. PULMONARY / CRITICAL CARE CONSULT NOTE Spencer Luna APRN 06/24/2025 Patient: Skyler Bautista 84 y.o. female Date of Admission: 06/23/2025 Admitting Provider: Duong Vitale MD CC: Chief Complaint Patient [facility] they report HR of 180, per squad HR 103. Skyler Bautista is a(n)84 y.o. female is being evaluated following ICUadmission for acute hypoxic respiratory failure, seizures andbradycardia. HPI: Ms. Bautista is an 84 year old female with a PMHx significant forA-fib, PE, HFpEF, subarachnoid hemorrhage, TBI, T2DM, CKD, PVD, and recentleft AKA. She was at a care home after recent admission for AKA withcomplaints of [...] with Afib with RVR and rate in tej735's. Trops: 92 -> 83, K: 4.5, creatinine: 0.84. [facility]. [facility] Card[facility]em [...] IR REVAS FEM POP ART UNILAT W MASTER CONTROL TECHNICIAN 01/30/2025 IR REVAS FEM POP ART UNILAT W MASTER CONTROL TECHNICIAN 01/30/2025 Vargas Wolf MD [facility] IR IR [...] foot hallux amputation; Surgeon: Dacia Mills DPM;Location: [facility] MAIN OR; Service: Podiatry FH: No [...] true Transportation Needs: No Transportation Needs (06/23/2025) [facility] IP Transportation In the past 12 months, has lack of reliable transportation kept you frommedical appointments, meetings, work or from getting things needed fordaily living?: No Physical Activity: Inactive (06/23/2025) Exercise Vital Sign Days of Exercise per Week: 0 days Minutes of Exercise per Session: 0 min Stress: No Stress Concern Present (06/23/2025) [employer] - Occupational StressQuestionnaire Feeling of Stress : Not at all Social Connections: Low Risk (10/30/2023) Received from [facility] ([place], [place], [place], [place]) Family and Community Support Help with Day to Day Activities: Not on file Feeling Lonely or Isolated: Not on file Intimate Partner Violence: Not At Risk (08/06/2024) Received from [facility] Humiliation, Afraid, Rape, and Kick questionnaire Fear of Current or Ex-Partner: No Emotionally Abused: No Physically Abused: No Sexually Abused: No Housing Stability: Low Risk (08/06/2024) Received from [facility] Housing Stability Vital Sign Unable to Pay [...] fUROsemide 40 mg Intravenous Daily Insulin Calculator (FEDERAL DISTRICT CLERK) - FSBS (Correction Only) Intake Input 1 [...] 0 Taking nalOXone (NARCAN) 4 mg/actuation Nasl [place], Non-Aerosol 0.1 mL by Nasalroute as needed for Opioid Reversal. [place] the contents of one device(0.1mL) into one [...] Date 06/24/25 0700 - 06/25/25 0659 Shift 7965-2809 6647-0181 8354-2494 24 Hour Total INTAKE I.V.(mL/kg/hr) 4.5 4.5 [...] 35 % Labs: [facility]G Recent Labs 06/24/25 02206/24/25 05 PH 7.38 7.45 PCO2 38 31* PO2 [...] EKG 12 LEAD Result Date: 06/24/2025 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 Nopneumothorax. Small left and savmx-iy-hawqdlkx right pleural effusions.Emphysema. Opacities dependently in the [...] ordered Insulin Regimen: Q4H CCI Last BM: MASTER CONTROL TECHNICIAN Assessment Acute hypoxic respiratory failure Seizure Atrial [...] GI prophylaxis: Protonix CODE status: DNR Limited PERFUME AND TOILET WATER MAKER critical care time: 17 minutes Spencer Luna [...] I am seeing in neurologic consultation at [facility] of Duong Vitale MD for [...] Patch 0 nalOXone (NARCAN) 4 mg/actuation Nasl [place], Non-Aerosol 0.1 mL by Nasalroute as needed for Opioid Reversal. [place] the contents of one device(0.1mL) into one [...] PM EDT Procedure Note - Pascual Sukh DO Destiney - 06/24/2025 10:18 AM EDTThis note is [...] 06/23* for shortness of breath.She was at care home recovering from recent AKA and developed shortnessof breath for four days MASTER CONTROL TECHNICIAN. In the ED she was noted to [...] years ago. Urinary incontinence Urinary tract infection MASTER CONTROL TECHNICIAN Medications: Prior to Admission medications Medication Sig [...] Montiel MD nalOXone (NARCAN) 4 mg/actuation Nasl [place], Non-Aerosol 0.1 mL by Nasalroute as needed for Opioid Reversal. [place] the contents of one device(0.1mL) into one [...] 40 mg Intravenous BID Diuretic Insulin Calculator (FEDERAL DISTRICT CLERK) - FSBS (Correction Only) Intake Input 1 [...] IR REVAS FEM POP ART UNILAT W MASTER CONTROL TECHNICIAN 01/30/2025 IR REVAS FEM POP ART UNILAT W MASTER CONTROL TECHNICIAN 01/30/2025 Vargas Wolf MD [facility] IR IR [...] Active Problem List Diagnosis Coronary arteriosclerosis in [place] artery // Hx of CABG Closed nondisplaced [...] left foot Exostosis of toe Atherosclerosis of [place] artery of extremity Abscess of toe of [...] most recent cardiovascular imaging studies available in [facility] EMR werereviewed at time of consultation Physical [...] Bilateral pleural effusions and dependent opacities -atelectasis -MASTER CONTROL TECHNICIAN lasix PRN -Currently on IV diuresis this admission -Volume status appears to be improving - likely transition to PO tomorrow Coronary Artery Disease -Remote history of CABG and subsequent PCIs -MASTER CONTROL TECHNICIAN lipitor 40 mg, coreg 25 mg BID, ranexa 500 mg BID History of PE -No MASTER CONTROL TECHNICIAN AC with history of ICH Elevated Troponin -Troponin 92, 83 -EKG afib RVR -ECHO pending Type 2 Diabetes -A1c 5.3 Hypertension -MASTER CONTROL TECHNICIAN coreg 25 mg BID Hyperlipidemia -MASTER CONTROL TECHNICIAN lipitor 40 mg Peripheral Vascular Disease -s/p recent left AKA Plan: Check ECHO Holding rate slowing medications Continue telemetry Reduce IV diuresis to daily - likely transition to PO tomorrow May need eventual EP consult for consideration of PPM Further input from Dr. Pascual Harris, PERFUME AND TOILET WATER MAKER [facility] V[facility] 06/24/2025 Disposition Perspective - [...] AKA as of 05/24/2025, who wasadmitted from care home with rapid atrial fibrillation and acutehypoxic respiratory failure. A fib w/ RVR on admission, placed on dilt gtt, became bradycardic andhypotension, had subsequent PEA arrest, now s/p ETT and left IJ centralline. ECG on admission w/ rapid atrial fibrillation, possible old anteroseptalMI Hs Trop 92-83 NT Pro BNP [address] [facility] 11/25/2022- 1. CAD s/p CABG 2 [...] GLUCOSE METER POC (07/02/2025 8:08 AM EDT) [facility] Glucose Meter POC 112(H) 70 - 100 mg/dL 07/02/2025 8:11 AM EDT [facility] Sample Type Capillary 07/02/2025 8:11 AM EDT [facility] Patient Status Non-Critical Patient 07/02/2025 8:11 AM EDT [facility] Blood BLOOD SPECIMEN / Unknown 07/02/2025 8:08 AM EDT 07/02/2025 8:11 AM EDT Duong Vitale MD POINT OF CARE TEST ORDERABLES Final Result Performing Organization Address City/[facility] Co de Phone Number [facility] [address] [place] [address] * (ABNORMAL) GLUCOSE METER POC (07/01/2025 8:19 PM EDT) Glucose Meter POC 123(H) 70 - 100 mg/dL 07/01/2025 8:20 PM EDT [facility] Sample Type Capillary 07/01/2025 8:20 PM EDT [facility] Patient Status Non-Critical Patient 07/01/2025 8:20 PM EDT [facility] Blood BLOOD SPECIMEN / Unknown 07/01/2025 8:19 PM EDT 07/01/2025 8:20 PM EDT Duong Vitale MD POINT OF CARE TEST ORDERABLES Final Result Performing Organization Address [facility] de Phone Number [facility] [address] [place] [address] * ECG AND WAVEFORMS - TELEMETRY (07/01/2025 7:05 PM EDT) ECG INTERPRET Sinus Arrythmia [facility] 07/01/2025 7:05 PM EDT Narrative [facility] - 07/01/2025 7:37 PM EDT ROUTINE/PAC/PVC/af MN 0.18 QRS 0.09 RR 0.58 QT 0.35 QTc 0.46 See Clinical Report link for waveform capture Unknown Provider POINT OF CARE CARDIOLOGY Final Result Performing Organization Address City/[facility] [place] Co de Phone Number [facility] [address] [place] [address] * (ABNORMAL) GLUCOSE METER POC (07/01/2025 5:28 PM EDT) Glucose Meter POC 122(H) 70 - 100 mg/dL 07/01/2025 5:30 PM EDT [facility] Sample Type Capillary 07/01/2025 5:30 PM EDT [facility] Patient Status Non-Critical Patient 07/01/2025 5:30 PM EDT [facility] Blood BLOOD SPECIMEN / Unknown 07/01/2025 5:28 PM EDT 07/01/2025 5:30 PM EDT Duong Vitale MD POINT OF CARE TEST ORDERABLES Final Result Performing Organization Address [facility] de Phone Number [facility] [address] [place] [address] * (ABNORMAL) GLUCOSE METER POC (07/01/2025 11:44 AM EDT) Glucose Meter POC 143(H) 70 - 100 mg/dL 07/01/2025 11:45 AM EDT [facility] Sample Type Capillary 07/01/2025 11:45 AM EDT [facility] Patient Status Non-Critical Patient 07/01/2025 11:45 AM EDT [facility] Blood BLOOD SPECIMEN / Unknown 07/01/2025 11:44 AM EDT 07/01/2025 11:45 AM EDT Duong Vitale MD POINT OF CARE TEST ORDERABLES Final Result Performing Organization Address City/[facility] de Phone Number [facility] [address] [place] [address] * (ABNORMAL) COMPREHENSIVE METABOLIC PANEL (07/01/2025 10:56 AM EDT) Sodium 138 136 - 145 mmol/L 07/01/2025 11:22 AM EDT [facility] Potassium 3.6 3.5 - 5.0 mmol/L 07/01/2025 11:22 AM EDT [facility] Chloride 104 98 - 107 mmol/L 07/01/2025 11:22 AM EDT [facility] Total CO2 22 22 - 29 mmol/L 07/01/2025 11:22 AM EDT [facility] Anion Gap 12 7 - 16 mmol/L 07/01/2025 11:22 AM EDT [facility] Calcium 8.9 8.8 - 10.4 mg/dL 07/01/2025 11:22 AM EDT [facility] Glucose Lvl 128(H) 70 - 99 mg/dL 07/01/2025 11:22 AM EDT [facility] BUN 25(H) 8 - 23 mg/dL 07/01/2025 11:22 AM EDT [facility] Creatinine 0.82 0.51 - 1.30 mg/dL 07/01/2025 11:22 AM EDT [facility] Albumin 3.7 3.2 - 4.6 gm/dL 07/01/2025 11:22 AM EDT [facility] Total Protein 7.1 6.4 - 8.3 gm/dL 07/01/2025 11:22 AM EDT [facility] Bili Total 0.6 0.2 - 1.3 mg/dL 07/01/2025 11:22 AM EDT [facility] ALT 18 <=41 U/L 07/01/2025 11:22 AM EDT [facility] AST 35 <=40 U/L 07/01/2025 11:22 AM EDT [facility] Alk Phos 151(H) 36 - 123 U/L 07/01[facility] eGFR (CKD-EPIcr 2020) 70 >=60 mL/min/1.7 3 m2 07/01/2025 11:22 AM EDT [facility] Comment:Estimated GFR was ca lculated using the CKD-EPIcr (2020) equation refit without race. The equation is recommended by the National Kid[employer] - [place] [employer] Neph[employer] Task Force. Blood VENOUS BLOOD / Unknown Venipuncture / Unknown 07/01/2025 10:56 AM EDT 07/01/2025 10:59 AM EDT us Jacob Horowitz MD CHEMISTRY ORDERABLES Final Resul t [facility] [address] [place] [address] * ECG AND WAVEFORMS - TELEMETRY (07/01/2025 7:07 AM EDT) ECG INTERPRET Atrial Fib [facility] 07/01/2025 7:07 AM EDT Narrative [facility] - 07/01/2025 7:32 AM EDT ROUTINE (AP) QRS 0.13 See Clinical Report link for waveform capture us Unknown Provider POINT OF CARE CARDIOLOGY Final Result Performing Organization Address [facility] de Phone Number [facility] [address] [place] [address] * (ABNORMAL) GLUCOSE METER POC (06/30/2025 9:11 PM EDT) Glucose Meter POC 149(H) 70 - 100 mg/dL 06/30/2025 9:12 PM EDT [facility] Sample Type Capillary 06/30/2025 9:12 PM EDT [facility] Patient Status Non-Critical Patient 06/30/2025 9:12 PM EDT [facility] Blood BLOOD SPECIMEN / Unknown 06/30/2025 9:11 PM EDT 06/30/2025 9:12 PM EDT us Duong Vitale MD POINT OF CARE TEST ORDERABLES Final Result Performing Organization Address City/[facility] Co de Phone Number [facility] [address] [place] [address] * ECG AND WAVEFORMS - TELEMETRY (06/30/2025 7:00 PM EDT) ECG INTERPRET Atrial Flutter [facility] 06/30/2025 7:00 PM EDT Narrative [facility] - 06/30/2025 7:57 PM EDT Routine 1900/PVC QRS 0.09 See Clinical Report link for waveform capture us Unknown Provider POINT OF CARE CARDIOLOGY Final Result Performing Organization Address City/[facility]/ZIP Co de Phone Number [facility] [address] [place] [phone] * (ABNORMAL) GLUCOSE METER POC (06/30/2025 4:26 PM EDT) Glucose Meter POC 145(H) 70 - 100 mg/dL 06/30/2025 4:27 PM EDT [facility] Sample Type Capillary 06/30/2025 4:27 PM EDT [facility] Patient Status Non-Critical Patient 06/30/2025 4:27 PM EDT [facility] Blood BLOOD SPECIMEN / Unknown 06/30/2025 4:26 PM EDT 06/30/2025 4:27 PM EDT Duong Vitale MD POINT OF CARE TEST ORDERABLES Final Result Performing Organization Address [facility] Co de Phone Number [facility] [address] [place] [address] * (ABNORMAL) GLUCOSE METER POC (06/30/2025 12:22 PM EDT) Glucose Meter POC 136(H) 70 - 100 mg/dL 06/30/2025 12:24 PM EDT [facility] Sample Type Capillary 06/30/2025 12:24 PM EDT [facility] Patient Status Non-Critical Patient 06/30/2025 12:24 PM EDT [facility] Blood BLOOD SPECIMEN / Unknown 06/30/2025 12:22 PM EDT 06/30/2025 12:24 PM EDT Duong Vitale MD POINT OF CARE TEST ORDERABLES Final Result Performing Organization Address [facility] Co de Phone Number [facility] [address] [place] [address] * (ABNORMAL) COMPREHENSIVE METABOLIC PANEL (06/30/2025 10:18 AM EDT) Sodium 140 136 - 145 mmol/L 06/30/2025 10:[facility] Potassium 3.7 3.5 - 5.0 mmol/L 06/30/2025 10:49 AM [facility] Chloride 105 98 - 107 mmol/L 06/30/2025 10:49 AM [facility] Total CO2 25 22 - 29 mmol/L 06/30/2025 10:49 AM [facility] Anion Gap 10 7 - 16 mmol/L 06/30/2025 10:49 AM [facility] Calcium 8.8 8.8 - 10.4 mg/dL 06/30/2025 10:49 AM [facility] Glucose Lvl 120(H) 70 - 99 mg/dL 06/30/2025 10:49 AM [facility] BUN 21 8 - 23 mg/dL 06/30/2025 10:49 AM [facility] Creatinine 0.83 0.51 - 1.30 mg/dL 06/30/2025 10:49 AM [facility] Albumin 3.6 3.2 - 4.6 gm/dL 06/30/2025 10:49 AM [facility] Total Protein 6.8 6.4 - 8.3 gm/dL 06/30/2025 10:49 AM [facility] Bili Total 0.5 0.2 - 1.3 mg/dL 06/30/2025 10:49 AM [facility] ALT 19 <=41 U/L 06/30/2025 10:49 AM [facility] AST 35 <=40 U/L 06/30/2025 10:49 AM [facility] Alk Phos 145(H) 36 - 123 U/L 06/30/2025 10:49 AM [facility] eGFR (CKD-EPIcr 2020) 69 >=60 mL/min/1.7 3 m2 06/30/2025 10:49 AM [facility] Comment:Estimated GFR was ca lculated using the CKD-EPIcr (2020) equation refit without race. The equation is recommended by the [employer] Kid[employer] - [place] [employer] Neph[employer] Task Force. Blood VENOUS BLOOD / Unknown Venipuncture / Unknown 06/30/2025 10:18 AM EDT 06/30/2025 10:23 AM EDT Jacob Horowitz MD CHEMISTRY ORDERABLES Final Resul t Performing Organization Address [facility] Co de Phone Number [facility] [address] [place] [address] * (ABNORMAL) GLUCOSE METER POC (06/30/2025 8:26 AM EDT) Glucose Meter POC 114(H) 70 - 100 mg/dL 06/30/2025 8:27 AM EDT [facility] Sample Type Capillary 06/30/2025 8:27 AM EDT [facility] Patient Status Non-Critical Patient 06/30/2025 8:27 AM EDT [facility] Blood BLOOD SPECIMEN / Unknown 06/30/2025 8:26 AM EDT 06/30/2025 8:27 AM EDT us Duong Vitale MD POINT OF CARE TEST ORDERABLES Final Result Performing Organization Address [facility] Co de Phone Number [facility] [address] [place] [address] * ECG AND WAVEFORMS - TELEMETRY (06/30/2025 7:03 AM EDT) ECG INTERPRET Atrial Fib [facility] Comment:with a pvc 06/30/2025 7:03 AM EDT Narrative [facility] - 06/30/2025 7:39 AM EDT ROUTINE W/ PVC (AP) QRS 0.10 See Clinical Report link for waveform capture us Unknown Provider POINT OF CARE CARDIOLOGY Final Result Performing Organization Address City/[facility] Co de Phone Number [facility] [address] [place] [address] * (ABNORMAL) GLUCOSE METER POC (06/29/2025 9:25 PM EDT) Glucose Meter POC 134(H) 70 - 100 mg/dL 06/29/2025 9:27 PM EDT [facility] Sample Type Capillary 06/29/2025 9:27 PM EDT [facility] Patient Status Non-Critical Patient 06/29/2025 9:27 PM EDT [facility] Blood BLOOD SPECIMEN / Unknown 06/29/2025 9:25 PM EDT 06/29/2025 9:27 PM EDT Duong Vitale MD POINT OF CARE TEST ORDERABLES Final Result [facility] [address] [place] [address] * ECG AND WAVEFORMS - TELEMETRY (06/29/2025 7:00 PM EDT) ECG INTERPRET Atrial Flutter [facility] 06/29/2025 7:00 PM EDT Narrative [facility] - 06/29/2025 9:49 PM EDT Routine 1900/Quadgem PVC/qj QRS 0.10 See Clinical Report link for waveform capture us Unknown Provider POINT OF CARE CARDIOLOGY Final Result [facility] [address] [place] [address] * (ABNORMAL) GLUCOSE METER POC (06/29/2025 5:50 PM EDT) Glucose Meter POC 185(H) 70 - 100 mg/dL 06/29/2025 5:52 PM EDT [facility] Sample Type Capillary 06/29/2025 5:52 PM EDT [facility] Patient Status Non-Critical Patient 06/29/2025 5:52 PM EDT [facility] Blood BLOOD SPECIMEN / Unknown 06/29/2025 5:50 PM EDT 06/29/2025 5:52 PM EDT Duong Vitale MD POINT OF CARE TEST ORDERABLES Final Result [facility] [address] [place] [phone] * (ABNORMAL) COMPREHENSIVE METABOLIC PANEL (06/29/2025 11:22 AM EDT) Sodium 139 136 - 145 mmol/L 06/29/2025 11:57 AM EDT [facility] Potassium 4.1 3.5 - 5.0 mmol/L 06/29/2025 11:57 AM EDT [facility] Chloride 106 98 - 107 mmol/L 06/29/2025 11:57 AM EDT [facility] Total CO2 21(L) 22 - 29 mmol/L 06/29/2025 11:57 AM EDT [facility] Anion Gap 12 7 - 16 mmol/L 06/29/2025 11:57 AM EDT [facility] Calcium 8.9 8.8 - 10.4 mg/dL 06/29/2025 11:57 AM EDT [facility] Glucose Lvl 140(H) 70 - 99 mg/dL 06/29/2025 11:57 AM EDT [facility] BUN 17 8 - 23 mg/dL 06/29/2025 11:57 AM EDT [facility] Creatinine 0.74 0.51 - 1.30 mg/dL 06/29/2025 11:57 AM EDT [facility] Albumin 3.7 3.2 - 4.6 gm/dL 06/29/2025 11:57 AM EDT [facility] Total Protein 7.1 6.4 - 8.3 gm/dL 06/29/2025 11:57 AM EDT [facility] Bili Total 0.6 0.2 - 1.3 mg/dL 06/29/2025 11:57 AM EDT [facility] ALT 16 <=41 U/L 06/29/2025 11:57 AM EDT [facility] AST 39 <=40 U/L 06/29/2025 11:57 AM EDT [facility] Alk Phos 143(H) 36 - 123 U/L 06/29/2025 11:57 AM EDT [facility] eGFR (CKD-EPIcr 2020) 79 >=60 mL/min/1.7 3 m2 06/29/2025 11:57 AM EDT [facility] Comment:Estimated GFR was ca lculated using the CKD-EPIcr (2020) equation refit without race. The equation is recommended by the [employer] Kid[employer] - [place] [employer] Neph[employer] Task Force. Blood VENOUS BLOOD / Unknown Venipuncture / Unknown 06/29/2025 11:22 AM EDT 06/29/2025 11:36 AM EDT us Jacob Horowitz MD CHEMISTRY ORDERABLES Final Resul t Performing Organization Address City/[facility]/ZIP Co de Phone Number [facility] [address] [place] [address] * (ABNORMAL) GLUCOSE METER POC (06/29/2025 10:28 AM EDT) Glucose Meter POC 113(H) 70 - 100 mg/dL 06/29/2025 10:29 AM EDT [facility] Sample Type Capillary 06/29/2025 10:29 AM EDT [facility] Patient Status Non-Critical Patient 06/29/2025 10:29 AM EDT [facility] Blood BLOOD SPECIMEN / Unknown 06/29/2025 10:28 AM EDT 06/29/2025 10:29 AM EDT us Duong Vitale MD POINT OF CARE TEST ORDERABLES Final Result Performing Organization Address City/[facility] Co de Phone Number [facility] [address] [place] [address] * ECG AND WAVEFORMS - TELEMETRY (06/29/2025 7:03 AM EDT) ECG INTERPRET Atrial Fib [facility] 06/29/2025 7:03 AM EDT Narrative [facility] - 06/29/2025 7:25 AM EDT ROUTINE-BB See Clinical Report link for waveform capture us Unknown Provider POINT OF CARE CARDIOLOGY Final Result Performing Organization Address [facility] Co de Phone Number [facility] [address] [place] [address] * ECG AND WAVEFORMS - TELEMETRY (06/29/2025 5:17 AM EDT) ECG INTERPRET Atrial Fib [facility] 06/29/2025 5:17 AM EDT Narrative [facility] - 06/29/2025 5:18 AM EDT ADMIT W/ PVCS (JM) QRS 0.06 See Clinical Report link for waveform capture us Unknown Provider POINT OF CARE CARDIOLOGY Final Result Performing Organization Address [facility] de Phone Number [facility] [address] [place] [address] * (ABNORMAL) GLUCOSE METER POC (06/28/2025 10:06 PM EDT) [facility] Glucose Meter POC 154(H) 70 - 100 mg/dL 06/28/2025 10:07 PM EDT [facility] Sample Type Capillary 06/28/2025 10:07 PM EDT [facility] Patient Status Non-Critical Patient 06/28/2025 10:07 PM EDT [facility] Blood BLOOD SPECIMEN / Unknown 06/28/2025 10:06 PM EDT 06/28/2025 10:07 PM EDT Duong Vitale MD POINT OF CARE TEST ORDERABLES Final Result Performing Organization Address City/[facility] Co de Phone Number [facility] [address] [place] [address] * ECG AND WAVEFORMS - TELEMETRY (06/28/2025 7:21 PM EDT) ECG INTERPRET Atrial Fib [facility] Comment:with PVC. 06/28/2025 7:21 PM EDT Narrative [facility] - 06/28/2025 7:23 PM EDT ROUTINE (JM) QRS 0.07 See Clinical Report link for waveform capture us Unknown Provider POINT OF CARE CARDIOLOGY Final Result Performing Organization Address City/[facility]/ZIP Co de Phone Number [facility] [address] [place] [address] * (ABNORMAL) GLUCOSE METER POC (06/28/2025 5:07 PM EDT) Glucose Meter POC 136(H) 70 - 100 mg/dL 06/28/2025 5:09 PM EDT [facility] Sample Type Capillary 06/28/2025 5:09 PM EDT [facility] Patient Status Non-Critical Patient 06/28/2025 5:09 PM EDT [facility] Blood BLOOD SPECIMEN / Unknown 06/28/2025 5:07 PM EDT 06/28/2025 5:09 PM EDT Duong Vitale MD POINT OF CARE TEST ORDERABLES Final Result Performing Organization Address [facility] Co de Phone Number [facility] [address] [place] [address] * (ABNORMAL) GLUCOSE METER POC (06/28/2025 12:03 PM EDT) Glucose Meter POC 179(H) 70 - 100 mg/dL 06/28/2025 12:05 PM EDT [facility] Sample Type Capillary 06/28/2025 12:05 PM EDT [facility] Patient Status Non-Critical Patient 06/28/2025 12:05 PM EDT [facility] Blood BLOOD SPECIMEN / Unknown 06/28/2025 12:03 PM EDT 06/28/2025 12:05 PM EDT Duong Vitale MD POINT OF CARE TEST ORDERABLES Final Result Performing Organization Address City/[facility]/ZIP Co de Phone Number [facility] [address] [place] [address] * (ABNORMAL) COMPREHENSIVE METABOLIC PANEL (06/28/2025 11:26 AM EDT) Sodium 139 136 - 145 mmol/L 06/28/2025 11:55 AM [facility] Potassium 4.0 3.5 - 5.0 mmol/L 06/28/2025 11:55 AM [facility] Chloride 106 98 - 107 mmol/L 06/28/2025 11:55 AM [facility] Total CO2 23 22 - 29 mmol/L 06/28/2025 11:55 AM [facility] Anion Gap 10 7 - 16 mmol/L 06/28/2025 11:55 AM [facility] Calcium 8.6(L) 8.8 - 10.4 mg/dL 06/28/2025 11:55 AM [facility] Glucose Lvl 161(H) 70 - 99 mg/dL 06/28/2025 11:55 AM [facility] BUN 15 8 - 23 mg/dL 06/28/2025 11:55 AM [facility] Creatinine 0.80 0.51 - 1.30 mg/dL 06/28/2025 11:55 AM [facility] Albumin 3.7 3.2 - 4.6 gm/dL 06/28/2025 11:55 AM [facility] Total Protein 6.8 6.4 - 8.3 gm/dL 06/28/2025 11:55 AM [facility] Bili Total 0.6 0.2 - 1.3 mg/dL 06/28/2025 11:55 AM [facility] ALT 16 <=41 U/L 06/28/2025 11:55 AM [facility] AST 32 <=40 U/L 06/28/2025 11:55 AM [facility] Alk Phos 143(H) 36 - 123 U/L 06/28/2025 11:55 AM [facility] eGFR (CKD-EPIcr 2020) 72 >=60 mL/min/1.7 3 m2 06/28/2025 11:55 AM [facility] Comment:Estimated GFR was ca lculated using the CKD-EPIcr (2020) equation refit without race. The equation is recommended by the [employer] - [place] [employer] Neph[employer] Task Force. Blood VENOUS BLOOD / Unknown Venipuncture / Unknown 06/28/2025 11:26 AM EDT 06/28/2025 11:30 AM EDT us Jacob Horowitz MD CHEMISTRY ORDERABLES Final Resul t Performing Organization Address City/[facility] Co de Phone Number [facility] [address] [place] [address] * PHOSPHORUS LEVEL (06/28/2025 11:26 AM EDT) Phosphorus 2.6 2.5 - 4.5 mg/dL 06/28/2025 11:55 AM EDT [facility] Blood VENOUS BLOOD / Unknown Venipuncture / Unknown 06/28/2025 11:26 AM EDT 06/28/2025 11:30 AM EDT us Jacob Horowitz MD CHEMISTRY ORDERABLES Final Resul t Performing Organization Address [facility] de Phone Number [facility] [address] [place] [address] * MAGNESIUM LEVEL (06/28/2025 11:26 AM EDT) Magnesium 1.8 1.6 - 2.4 mg/dL 06/28/2025 12:04 PM EDT [facility] Blood VENOUS BLOOD / Unknown Venipuncture / Unknown 06/28/2025 11:26 AM EDT 06/28/2025 11:30 AM EDT us Jacob Horowitz MD CHEMISTRY ORDERABLES Final Resul t Performing Organization Address City/[facility] de Phone Number [facility] [address] [place] [address] * (ABNORMAL) CBC WITH DIFF (06/28/2025 11:26 AM EDT) WBC 4.3 3.7 - 10.3 x10(3)/mcL 06/28/2025 11:33 AM EDT [facility] RBC 2.62(L) 3.90 - 5.20 x10(6)/mcL 06/28/2025 11:33 AM EDT [facility] Hgb 9.7(L) 11.2 - 15.7 g/dL 06/28/2025 11:33 AM EDT [facility] Hct 30.2(L) 34.0 - 45.0 % 06/28/2025 11:33 AM EDT [facility] MCV 115.3(H) 80.0 - 100.0 fL 06/28/2025 11:33 AM EDT [facility] MCH 37.0(H) 26.0 - 34.0 pg 06/28/2025 11:33 AM EDT [facility] MCHC 32.1 30.7 - 35.5 g/dL 06/28/2025 11:[facility] R[facility] 18.9(H) <=14.9 % 06/28/2025 11:33 AM EDT [facility] Platelet 86(L) 155 - 369 x10(3)/mcL 06/28/2025 11:[facility] MPV 11.8 8.8 - 12.5 fL 06/28/2025 11:[facility] Neut Percent 52.1 % 06/28/2025 11:33 AM [facility] Comment:Neutrophils equals s egs plus bands Imm Gran% 0.5 % 06/28/2025 11:33 AM [facility] Comment:Automated count of m etamyelocytes, myelocytes and promyelocytes. Lymph Percent 40.1 % 06/28/2025 11:33 AM EDT [facility] Coles Percent 6.6 % 06/28/2025 11:33 AM EDT [facility] Eos Percent 0.2 % 06/28/2025 11:33 [facility] Baso Percent 0.5 % 06/28/2025 11:33 [facility] Neut # 2.2 1.6 - 6.1 x10(3)/mcL 06/28/2025 11:33 AM EDT [facility] Comment:Neutrophils equals s egs plus bands IMMGRAN# 0.0 0.0 - 0.1 x10(3)/[facility] 06/28/2025 11:33 AM EDT [facility] Comment:Automated count of m etamyelocytes, myelocytes and promyelocytes. An absolute IG <0.1 is reported as 0.0. Lymph # 1.7 1.2 - 3.9 x10(3)/[facility] 06/28/2025 11:33 AM EDT [facility] Coles # 0.3 0.3 - 0.9 x10(3)/[facility] 06/28/2025 11:33 AM EDT [facility] Eos# 0.0 0.0 - 0.5 x10(3)/[facility] 06/28/2025 11:33 AM EDT [facility] Baso # 0.0 0.0 - 0.1 x10(3)/[facility] 06/28/2025 11:33 AM EDT [facility] Blood VENOUS BLOOD / Unknown Venipuncture / Unknown 06/28/2025 11:26 AM EDT 06/28/2025 11:30 AM EDT us Jacob Horowitz MD HEMATOLOGY ORDERABLES Final Resu lt [facility] [address] [id number] * (ABNORMAL) GLUCOSE METER POC (06/28/2025 8:20 AM EDT) [facility] Glucose Meter POC 104(H) 70 - 100 mg/dL 06/28/2025 8:21 AM EDT [facility] Sample Type Capillary 06/28/2025 8:21 AM EDT [facility] Patient Status Non-Critical Patient 06/28/2025 8:21 AM EDT [facility] Blood BLOOD SPECIMEN / Unknown 06/28/2025 8:20 AM EDT 06/28/2025 8:21 AM EDT us Duong Vitale MD POINT OF CARE TEST ORDERABLES Final Result Performing Organization Address City/[facility]/ZIP Co de Phone Number [facility] [address] [place] [address] * ECG AND WAVEFORMS - TELEMETRY (06/28/2025 7:00 AM EDT) ECG INTERPRET Atrial Fib [facility] 06/28/2025 7:00 AM EDT Narrative [facility] - 06/28/2025 7:40 AM EDT ECB - ROUTINE QRS 0.11 See Clinical Report link for waveform capture us Unknown Provider POINT OF CARE CARDIOLOGY Final Result Performing Organization Address [facility] Co de Phone Number [facility] [address] [place] [address] * (ABNORMAL) GLUCOSE METER POC (06/28/2025 12:13 AM EDT) Glucose Meter POC 133(H) 70 - 100 mg/dL 06/28/2025 12:14 AM EDT [facility] Sample Type Capillary 06/28/2025 12:14 AM EDT [facility] Patient Status Non-Critical Patient 06/28/2025 12:14 AM EDT [facility] Blood BLOOD SPECIMEN / Unknown 06/28/2025 12:13 AM EDT 06/28/2025 12:14 AM EDT us Duong Vitale MD POINT OF CARE TEST ORDERABLES Final Result Performing Organization Address City/[facility] Co de Phone Number [facility] [address] [place] [phone] * (ABNORMAL) GLUCOSE METER POC (06/27/2025 8:12 PM EDT) Glucose Meter POC 141(H) 70 - 100 mg/dL 06/27/2025 8:14 PM EDT [facility] Sample Type Capillary 06/27/2025 8:14 PM EDT [facility] Patient Status Non-Critical Patient 06/27/2025 8:14 PM EDT [facility] Blood BLOOD SPECIMEN / Unknown 06/27/2025 8:12 PM EDT 06/27/2025 8:14 PM EDT us Duong Vitale MD POINT OF CARE TEST ORDERABLES Final Result Performing Organization Address City/[facility]/ZIP Co de Phone Number [facility] [address] [place] [address] * ECG AND WAVEFORMS - TELEMETRY (06/27/2025 7:22 PM EDT) [facility] ECG INTERPRET Atrial Fib [facility] 06/27/2025 7:22 PM EDT Narrative [facility] - 06/27/2025 7:25 PM EDT ROUTINE/ PVCS (JM) QRS 0.08 See Clinical Report link for waveform capture us Unknown Provider POINT OF CARE CARDIOLOGY Final Result Performing Organization Address City/[facility] Co de Phone Number [facility] [address] [place] [address] * (ABNORMAL) GLUCOSE METER POC (06/27/2025 5:34 PM EDT) [facility] Glucose Meter POC 184(H) 70 - 100 mg/dL 06/27/2025 5:35 PM EDT [facility] Sample Type Capillary 06/27/2025 5:35 PM EDT [facility] Patient Status Non-Critical Patient 06/27/2025 5:35 PM EDT [facility] Blood BLOOD SPECIMEN / Unknown 06/27/2025 5:34 PM EDT 06/27/2025 5:35 PM EDT us Duong Vitale MD POINT OF CARE TEST ORDERABLES Final Result Performing Organization Address City/[facility]/ZIP Co de Phone Number [facility] [address] [place] [address] * (ABNORMAL) GLUCOSE METER POC (06/27/2025 11:48 AM EDT) Glucose Meter POC 119(H) 70 - 100 mg/dL 06/27/2025 11:49 AM EDT [facility] Sample Type Capillary 06/27/2025 11:49 AM EDT [facility] Patient Status Non-Critical Patient 06/27/2025 11:49 AM EDT [facility] Blood BLOOD SPECIMEN / Unknown 06/27/2025 11:48 AM EDT 06/27/2025 11:49 AM EDT us Duong Vitale MD POINT OF CARE TEST ORDERABLES Final Result Performing Organization Address [facility] de Phone Number [facility] [address] [place] [address] * (ABNORMAL) GLUCOSE METER POC (06/27/2025 9:02 AM EDT) Glucose Meter POC 121(H) 70 - 100 mg/dL 06/27/2025 9:04 AM EDT [facility] Sample Type Capillary 06/27/2025 9:04 AM EDT [facility] Patient Status Non-Critical Patient 06/27/2025 9:04 AM EDT [facility] Blood BLOOD SPECIMEN / Unknown 06/27/2025 9:02 AM EDT 06/27/2025 9:04 AM EDT us Duong Vitale MD POINT OF CARE TEST ORDERABLES Final Result Performing Organization Address City/[facility] de Phone Number [facility] [address] [place] [address] * EXTRA LAVENDER (06/27/2025 8:28 AM EDT) Blood VENOUS BLOOD / Unknown Venipuncture / Unknown 06/27/2025 8:28 AM EDT 06/27/2025 8:36 AM EDT us Duong Vitale MD HEMATOLOGY ORDERABLES Final R esult Performing Organization Address City/[facility] de Phone Number [facility] [address] [facility] [place] [address] * (ABNORMAL) BASIC METABOLIC PANEL (06/27/2025 8:28 AM EDT) Sodium 138 136 - 145 mmol/L 06/27/2025 8:56 AM EDT [facility] Potassium 4.1 3.5 - 5.0 mmol/L 06/27/2025 8:56 AM EDT [facility] Chloride 106 98 - 107 mmol/L 06/27/2025 8:56 AM EDT [facility] Total CO2 21(L) 22 - 29 mmol/L 06/27/2025 8:56 AM EDT [facility] Anion Gap 11 7 - 16 mmol/L 06/27/2025 8:56 AM EDT [facility] Calcium 8.3(L) 8.8 - 10.4 mg/dL 06/27/2025 8:56 AM EDT [facility] Glucose Lvl 112(H) 70 - 99 mg/dL 06/27/2025 8:56 AM EDT [facility] BUN 13 8 - 23 mg/dL 06/27/2025 8:56 AM EDT [facility] Creatinine 0.86 0.51 - 1.30 mg/dL 06/27/2025 8:56 AM EDT [facility] eGFR (CKD-EPIcr 2020) 66 >=60 mL/min/1.7 3 m2 06/27/2025 8:56 AM EDT [facility] Comment:Estimated GFR was ca lculated using the CKD-EPIcr (2020) equation refit without race. The equation is recommended by the [employer] - [place] [employer] Neph[employer] Task Force. Blood VENOUS BLOOD / Unknown Venipuncture / Unknown 06/27/2025 8:28 AM EDT 06/27/2025 8:35 AM EDT us Lianet aHrris PERFUME AND TOILET WATER MAKER CHEMISTRY ORDERABLES Fi nal Result [facility] [address] [place] [address] * ECG AND WAVEFORMS - TELEMETRY (06/27/2025 7:00 AM EDT) ECG INTERPRET Atrial Fib [facility] 06/27/2025 7:00 AM EDT Narrative [facility] - 06/27/2025 7:38 AM EDT ECB - ROUTINE QRS 0.12 See Clinical Report link for waveform capture us Unknown Provider POINT OF CARE CARDIOLOGY Final Result Performing Organization Address City/[facility]/ZIP Co de Phone Number [facility] [address] [place] [address] * (ABNORMAL) GLUCOSE METER POC (06/27/2025 5:39 AM EDT) Glucose Meter POC 105(H) 70 - 100 mg/dL 06/27/2025 5:41 AM EDT [facility] Sample Type Capillary 06/27/2025 5:41 AM EDT [facility] Patient Status Non-Critical Patient 06/27/2025 5:41 AM EDT [facility] Blood BLOOD SPECIMEN / Unknown 06/27/2025 5:39 AM EDT 06/27/2025 5:41 AM EDT us Duong Vitale MD POINT OF CARE TEST ORDERABLES Final Result Performing Organization Address City/[facility]/ZIP Co de Phone Number [facility] [address] [place] [address] * (ABNORMAL) GLUCOSE METER POC (06/27/2025 12:32 AM EDT) Glucose Meter POC 118(H) 70 - 100 mg/dL 06/27/2025 12:33 AM EDT [facility] Sample Type Capillary 06/27/2025 12:33 AM EDT [facility] Patient Status Non-Critical Patient 06/27/2025 12:33 AM EDT [facility] Blood BLOOD SPECIMEN / Unknown 06/27/2025 12:32 AM EDT 06/27/2025 12:33 AM EDT Duong Vitale MD POINT OF CARE TEST ORDERABLES Final Result Performing Organization Address [facility] Co de Phone Number [facility] [address] [place] [address] * (ABNORMAL) GLUCOSE METER POC (06/26/2025 8:15 PM EDT) Glucose Meter POC 137(H) 70 - 100 mg/dL 06/26/2025 8:17 PM EDT [facility] Sample Type Capillary 06/26/2025 8:17 PM EDT [facility] Patient Status Non-Critical Patient 06/26/2025 8:17 PM EDT [facility] Blood BLOOD SPECIMEN / Unknown 06/26/2025 8:15 PM EDT 06/26/2025 8:17 PM EDT Duong Vitale MD POINT OF CARE TEST ORDERABLES Final Result Performing Organization Address [facility] de Phone Number [facility] [address] [place] [address] * ECG AND WAVEFORMS - TELEMETRY (06/26/2025 7:52 PM EDT) ECG INTERPRET Atrial Fib [facility] 06/26/2025 7:52 PM EDT Narrative [facility] - 06/26/2025 7:54 PM EDT TW/ROUTINE QRS 0.10 See Clinical Report link for waveform capture us Unknown Provider POINT OF CARE CARDIOLOGY Final Result Performing Organization Address City/[facility] Co de Phone Number [facility] [address] [place] [address] * (ABNORMAL) GLUCOSE METER POC (06/26/2025 5:59 PM EDT) Glucose Meter POC 161(H) 70 - 100 mg/dL 06/26/2025 6:01 PM EDT [facility] Sample Type Capillary 06/26/2025 6:01 PM EDT [facility] Patient Status Non-Critical Patient 06/26/2025 6:01 PM EDT [facility] Blood BLOOD SPECIMEN / Unknown 06/26/2025 5:59 PM EDT 06/26/2025 6:01 PM EDT us Duong Vitale MD POINT OF CARE TEST ORDERABLES Final Result Performing Organization Address City/[facility]/ZIP Co de Phone Number [facility] [address] [place], [place] [id number] * ECG AND WAVEFORMS - TELEMETRY (06/26/2025 5:10 PM EDT) [facility] ECG INTERPRET Atrial Fib [facility] 06/26/2025 5:10 PM EDT Narrative [facility] - 06/26/2025 5:10 PM EDT See Clinical Report link for waveform capture us Unknown Provider POINT OF CARE CARDIOLOGY Final Result Performing Organization Address City/[facility] de Phone Number [facility] [address] [place], [place] [id number] * (ABNORMAL) CBC WITH DIFF (06/26/2025 2:27 PM EDT) [facility] WBC 4.1 3.7 - 10.3 x10(3)/mcL 06/26/2025 2:36 PM EDT [facility] RBC 2.51(L) 3.90 - 5.20 x10(6)/mcL 06/26/2025 2:36 PM EDT [facility] Hgb 9.3(L) 11.2 - 15.7 g/dL 06/26/2025 2:36 PM EDT [facility] Hct 27.7(L) 34.0 - 45.0 % 06/26/2025 2:36 PM EDT [facility] MCV 110.4(H) 80.0 - 100.0 fL 06/26/2025 2:36 PM EDT [facility] MCH 37.1(H) 26.0 - 34.0 pg 06/26/2025 2:36 PM EDT [facility] MCHC 33.6 30.7 - 35.5 g/dL 06/26/2025 2:36 PM EDT [facility] RDW 19.5(H) <=14.9 % 06/26/2025 2:36 PM EDT [facility] Platelet 94(L) 155 - 369 x10(3)/[facility] 06/26/2025 2:36 PM EDT [facility] MPV 12.1 8.8 - 12.5 fL 06/26/2025 2:36 PM EDT [facility] Neut Percent 58.8 % 06/26/2025 2:36 PM EDT [facility] Comment:Neutrophils equals s egs plus bands Imm Gran% 0.5 % 06/26/2025 2:36 PM EDT [facility] Comment:Automated count of m etamyelocytes, myelocytes and promyelocytes. Lymph Percent 32.9 % 06/26/2025 2:36 PM EDT [facility] Coles Percent 7.3 % 06/26/2025 2:36 PM EDT [facility] Eos Percent 0.0 % 06/26/2025 2:36 PM EDT [facility] Baso Percent 0.5 % 06/26/2025 2:36 PM EDT [facility] Neut # 2.4 1.6 - 6.1 x10(3)/[facility] 06/26/2025 2:36 PM EDT [facility] Comment:Neutrophils equals s egs plus bands IMMGRAN# 0.0 0.0 - 0.1 x10(3)/[facility] 06/26/2025 2:36 PM EDT [facility] Comment:Automated count of m etamyelocytes, myelocytes and promyelocytes. An absolute IG <0.1 is reported as 0.0. Lymph # 1.4 1.2 - 3.9 x10(3)/[facility] 06/26/2025 2:36 PM EDT [facility] Coles # 0.3 0.3 - 0.9 x10(3)/[facility] 06/26/2025 2:36 PM EDT [facility] Eos# 0.0 0.0 - 0.5 x10(3)/[facility] 06/26/2025 2:36 PM EDT [facility] Baso # 0.0 0.0 - 0.1 x10(3)/mcL 06/26/2025 2:36 PM EDT [facility] Blood VENOUS BLOOD / Unknown Venipuncture / Unknown 06/26/2025 2:27 PM EDT 06/26/2025 2:34 PM EDT us Jacob oHrowitz MD HEMATOLOGY ORDERABLES Final Resu lt Performing Organization Address City/[facility] Co de Phone Number [facility] [address] [place] [address] * POTASSIUM LEVEL (06/26/2025 2:27 PM EDT) Potassium 4.5 3.5 - 5.0 mmol/L 06/26/2025 2:46 PM EDT [facility] Blood VENOUS BLOOD / Unknown Venipuncture / Unknown 06/26/2025 2:27 PM EDT 06/26/2025 2:34 PM EDT us Jacob Horowitz MD CHEMISTRY ORDERABLES Final Resul t Performing Organization Address [facility] de Phone Number [facility] [address] [place] [address] * US RENAL AND BLADDER [...] evaluation of the kidneys and bladder with textile machinery sales representative images and planning director notes sent to PACS for radiologist review. [...] sonographic evaluation of the kidneys andbladder with textile machinery sales representative images and planning director notes sent to PACS forradiologist review. FINDINGS: [...] the ordering clinician. us Antoine Ferraro PA-C IM US ORDERABLES F inal Result * (ABNORMAL) GLUCOSE METER POC (06/26/2025 12:39 PM EDT) [facility] Glucose Meter POC 119(H) 70 - 100 mg/dL 06/26/2025 12:40 PM EDT [facility] Sample Type Capillary 06/26/2025 12:40 PM EDT [facility] Patient Status Non-Critical Patient 06/26/2025 12:40 PM EDT [facility] Blood BLOOD SPECIMEN / Unknown 06/26/2025 12:39 PM EDT 06/26/2025 12:40 PM EDT us Duong Vitale MD POINT OF CARE TEST ORDERABLES Final Result Performing Organization Address City/[facility]/ZIP Co de Phone Number [facility] [address] [place], [place] [id number] * ECG AND WAVEFORMS - TELEMETRY (06/26/2025 7:51 AM EDT) Pathologist [facility] ECG INTERPRET Atrial Fib [facility] 06/26/2025 7:51 AM EDT Narrative [facility] - 06/26/2025 7:51 AM EDT See Clinical Report link for waveform capture us Unknown Provider POINT OF CARE CARDIOLOGY Final Result Performing Organization Address [facility] de Phone Number [facility] [address] [place] [address] * (ABNORMAL) BASIC METABOLIC PANEL (06/26/2025 6:31 AM EDT) [facility] Sodium 138 136 - 145 mmol/L 06/26/2025 7:09 AM EDT [facility] Potassium 3.9 3.5 - 5.0 mmol/L 06/26/2025 7:09 AM EDT [facility] Chloride 106 98 - 107 mmol/L 06/26/2025 7:09 AM EDT [facility] Total CO2 22 22 - 29 mmol/L 06/26/2025 7:09 AM EDT [facility] Anion Gap 10 7 - 16 mmol/L 06/26/2025 7:09 AM EDT [facility] Calcium 8.3(L) 8.8 - 10.4 mg/dL 06/26/2025 7:09 AM EDT [facility] Glucose Lvl 95 70 - 99 mg/dL 06/26/2025 7:09 AM EDT [facility] BUN 13 8 - 23 mg/dL 06/26/2025 7:09 AM EDT [facility] Creatinine 0.87 0.51 - 1.30 mg/dL 06/26/2025 7:09 AM EDT [facility] eGFR (CKD-EPIcr 2020) 65 >=60 mL/min/1.7 3 m2 06/26/2025 7:09 AM EDT [facility] Comment:Estimated GFR was ca lculated using the CKD-EPIcr (2020) equation refit without race. The equation is recommended by the [employer] Kid[employer] - [place] [employer] Neph[employer] Task Force. Blood VENOUS BLOOD / Unknown Venipuncture / Unknown 06/26/2025 6:31 AM EDT 06/26/2025 6:37 AM EDT us Spencer Luna APRN CHEMISTRY ORDERABLES Fin al Result Performing Organization Address [facility] de Phone Number [facility] [address] [place] [address] * (ABNORMAL) NT PROBNP (06/26/2025 6:31 AM EDT) NT Pro-BNP 7,743(H) <=624 pg/mL 06/26/2025 7:09 AM EDT [facility] Blood VENOUS BLOOD / Unknown Venipuncture / Unknown 06/26/2025 6:31 AM EDT 06/26/2025 6:37 AM EDT Narrative [facility] - 06/26/2025 7:09 AM EDT [...] ORDERABLES Final Re sult Performing Organization Address [facility] de Phone Number [facility] [address] [place] [address] * (ABNORMAL) CBC (06/26/2025 6:31 AM EDT) WBC 4.6 3.7 - 10.3 x10(3)/[facility] 06/26/2025 6:42 AM EDT [facility] RBC 2.48(L) 3.90 - 5.20 x10(6)/[facility] 06/26/2025 6:42 AM EDT [facility] Hgb 9.0(L) 11.2 - 15.7 g/dL 06/26/2025 6:42 AM EDT [facility] Hct 27.4(L) 34.0 - 45.0 % 06/26/2025 6:42 AM EDT [facility] MCV 110.5(H) 80.0 - 100.0 fL 06/26/2025 6:42 AM EDT [facility] MCH 36.3(H) 26.0 - 34.0 pg 06/26/2025 6:42 AM EDT [facility] MCHC 32.8 30.7 - 35.5 g/dL 06/26/2025 6:42 AM EDT [facility] RDW 19.3(H) <=14.9 % 06/26/2025 6:42 AM EDT [facility] Platelet 87(L) 155 - 369 x10(3)/[facility] 06/26/2025 6:42 AM EDT [facility] MPV 12.9(H) 8.8 - 12.5 fL 06/26/2025 6:42 AM EDT [facility] Blood VENOUS BLOOD / Unknown Venipuncture / Unknown 06/26/2025 6:31 AM EDT 06/26/2025 6:37 AM EDT us Duong Vitale MD HEMATOLOGY ORDERABLES Final R esult [facility] [address] [place] [address] * GLUCOSE METER POC (06/26/2025 6:30 AM EDT) Pathologist [facility] Glucose Meter POC 92 70 - 100 mg/dL 06/26/2025 6:32 AM EDT [facility] Sample Type Capillary 06/26/2025 6:32 AM EDT [facility] Patient Status Non-Critical Patient 06/26/2025 6:32 AM EDT [facility] Blood BLOOD SPECIMEN / Unknown 06/26/2025 6:30 AM EDT 06/26/2025 6:32 AM EDT Duong Vitale MD POINT OF CARE TEST ORDERABLES Final Result Performing Organization Address City/[facility]/ZIP Co de Phone Number [facility] [address] [place] [address] * GLUCOSE METER POC (06/26/2025 12:14 AM EDT) Glucose Meter POC 91 70 - 100 mg/dL 06/26/2025 12:15 AM EDT [facility] Sample Type Capillary 06/26/2025 12:15 AM EDT [facility] Patient Status Non-Critical Patient 06/26/2025 12:15 AM EDT [facility] Blood BLOOD SPECIMEN / Unknown 06/26/2025 12:14 AM EDT 06/26/2025 12:15 AM EDT Duong Vitale MD POINT OF CARE TEST ORDERABLES Final Result Performing Organization Address [facility]/ZIP Co de Phone Number [facility] [address] [place] [address] * ECG AND WAVEFORMS - TELEMETRY (06/25/2025 7:20 PM EDT) ECG INTERPRET Atrial Fib [facility] 06/25/2025 7:20 PM EDT Narrative [facility] - 06/25/2025 7:20 PM EDT See Clinical Report link for waveform capture Unknown Provider POINT OF CARE CARDIOLOGY Final Result Performing Organization Address City/[facility]/ZIP Co de Phone Number [facility] [address] [place] [address] * GLUCOSE METER POC (06/25/2025 6:14 PM EDT) Glucose Meter POC 80 70 - 100 mg/dL 06/25/2025 6:16 PM EDT [facility] Sample Type Capillary 06/25/2025 6:16 PM EDT [facility] Patient Status Non-Critical Patient 06/25/2025 6:16 PM EDT [facility] Blood BLOOD SPECIMEN / Unknown 06/25/2025 6:14 PM EDT 06/25/2025 6:16 PM EDT us Duong Vitale MD POINT OF CARE TEST ORDERABLES Final Result Performing Organization Address [facility] de Phone Number [facility] [address] [place] [address] * POTASSIUM LEVEL (06/25/2025 4:44 PM EDT) [facility] Potassium 4.2 3.5 - 5.0 mmol/L 06/25/2025 5:03 PM EDT [facility] Blood VENOUS BLOOD / Unknown Venipuncture / Unknown 06/25/2025 4:44 PM EDT 06/25/2025 4:51 PM EDT us Gabby Heredia APRN CHEMISTRY ORDERABLES Final Resul t Performing Organization Address [facility] de Phone Number [facility] [address] [place] [address] * EEG ED/ICU REMOTE MONITORING (06/25/2025 3:28 [...] without any parasagittal coverage (rapid EEG - [employer]IntelliGeneScan device). Computer selected EEG is reviewed as well as background features and all clinically significant events. TECHNICAL SUMMARY: This is a 10 channel referential and bipolar EEG recorded in a digital format on the [employer]IntelliGeneScan device. This device is designed to detect [...] GLUCOSE METER POC (06/25/2025 12:30 PM EDT) [facility] Glucose Meter POC 102(H) 70 - 100 mg/dL 06/25/2025 12:32 PM EDT [facility] Sample Type Capillary 06/25/2025 12:32 PM EDT [facility] Patient Status Non-Critical Patient 06/25/2025 12:32 PM EDT [facility] Blood BLOOD SPECIMEN / Unknown 06/25/2025 12:30 PM EDT 06/25/2025 12:32 PM EDT Duong Vitale MD POINT OF CARE TEST ORDERABLES Final Result [facility] [address] [place] [address] * (ABNORMAL) BLOOD GAS, VENOUS (06/25/2025 10:58 AM EDT) pH Venous 7.42 7.32 - 7.42 pH 06/25/2025 11:14 AM EDT [facility] pCO2 Venous 37(L) 41 - 51 mmHg 06/25/2025 11:14 AM EDT [facility] pO2 Venous 50(H) 25 - 40 mmHg 06/25/2025 11:14 AM EDT [facility] Comment:Interpret with cauti on. Not recommended to evaluate patient's oxygenation status. Base Excess Martín 0.0 mmol/L 11:14 AM EDT [facility] Hco3 Venous 24.3 24.0 - 28.0 mmol/L 06/25/2025 11:14 AM EDT [facility] CO2 Total Martín 23(L) 25 - 29 mmol/L 06/25/2025 11:14 AM EDT [facility] O2 Sat. Venous 83.5(H) 40.0 - 70.0 % 06/25/2025 11:14 AM EDT [facility] Inspired O2 25 06/25/2025 11:14 AM EDT [facility] Blood VENOUS STRUCTURE / Unknown Line / Unknown 06/25/2025 10:58 AM EDT 06/25/2025 11:06 AM EDT us Gabby Heredia PERFUME AND TOILET WATER MAKER CHEMISTRY ORDERABLES Final Resul t [facility] [address] [place] [id number] * GLUCOSE METER POC (06/25/2025 8:20 AM EDT) Glucose Meter POC 98 70 - 100 mg/dL 06/25/2025 8:23 AM EDT [facility] Sample Type Arterial 06/25/2025 8:23 AM EDT [facility] Patient Status Non-Critical Patient 06/25/2025 8:23 AM EDT [facility] Blood BLOOD SPECIMEN / Unknown 06/25/2025 8:20 AM EDT 06/25/2025 8:23 AM EDT us Duong Vitale MD POINT OF CARE TEST ORDERABLES Final Result [facility] [address] [place] [address] * ECG AND WAVEFORMS - TELEMETRY (06/25/2025 7:40 AM EDT) Pathologist [facility] ECG INTERPRET Atrial Fib [facility] 06/25/2025 7:40 AM EDT Narrative [facility] - 06/25/2025 7:40 AM EDT See Clinical Report link for waveform capture us Unknown Provider POINT OF CARE CARDIOLOGY Final Result Performing Organization Address [facility] Co de Phone Number [facility] [address] [place] [address] * (ABNORMAL) BASIC METABOLIC PANEL (06/25/2025 6:31 AM EDT) [facility] Sodium 139 136 - 145 mmol/L 06/25/2025 7:09 AM EDT [facility] Potassium 3.4(L) 3.5 - 5.0 mmol/L 06/25/2025 7:09 AM EDT [facility] Chloride 106 98 - 107 mmol/L 06/25/2025 7:09 AM EDT [facility] Total CO2 21(L) 22 - 29 mmol/L 06/25/2025 7:09 AM EDT [facility] Anion Gap 12 7 - 16 mmol/L 06/25/2025 7:09 AM EDT [facility] Calcium 8.5(L) 8.8 - 10.4 mg/dL 06/25/2025 7:09 AM EDT [facility] Glucose Lvl 95 70 - 99 mg/dL 06/25/2025 7:09 AM EDT [facility] BUN 16 8 - 23 mg/dL 06/25/2025 7:09 AM EDT [facility] Creatinine 1.05 0.51 - 1.30 mg/dL 06/25/2025 7:09 AM EDT [facility] eGFR (CKD-EPIcr 2020) 52(L) >=60 mL/min/1.7 3 m2 06/25/2025 7:09 AM EDT [facility] Comment:Estimated GFR was ca lculated using the CKD-EPIcr (2020) equation refit without race. The equation is recommended by the [employer] - [place] [employer] Task Force. Blood VENOUS BLOOD / Unknown Venipuncture / Unknown 06/25/2025 6:31 AM EDT 06/25/2025 6:45 AM EDT Spencer Luna APRN CHEMISTRY ORDERABLES Fin al Result Performing Organization Address [facility] Co de Phone Number [facility] [address] [place] [address] * (ABNORMAL) NT PROBNP (06/25/2025 6:31 AM EDT) NT Pro-BNP 5,011(H) <=624 pg/mL 06/25/2025 7:09 AM EDT [facility] Blood VENOUS BLOOD / Unknown Venipuncture / Unknown 06/25/2025 6:31 AM EDT 06/25/2025 6:45 AM EDT Narrative [facility] - 06/25/2025 7:09 AM EDT [...] ORDERABLES Final Re sult Performing Organization Address [facility] Co de Phone Number [facility] [address] [place] [address] * (ABNORMAL) CBC (06/25/2025 6:31 AM EDT) WBC 4.2 3.7 - 10.3 x10(3)/mcL 06/25/2025 6:47 AM EDT [facility] RBC 2.12(L) 3.90 - 5.20 x10(6)/mcL 06/25/2025 6:47 AM EDT [facility] Hgb 7.9(L) 11.2 - 15.7 g/dL 06/25/2025 6:47 AM EDT [facility] Hct 23.5(L) 34.0 - 45.0 % 06/25/2025 6:47 AM EDT [facility] MCV 110.8(H) 80.0 - 100.0 fL 06/25/2025 6:47 AM EDT [facility] MCH 37.3(H) 26.0 - 34.0 pg 06/25/2025 6:47 AM EDT [facility] MCHC 33.6 30.7 - 35.5 g/dL 06/25/2025 6:47 AM EDT [facility] RDW 19.9(H) <=14.9 % 06/25/2025 6:47 AM EDT [facility] Platelet 63(L) 155 - 369 x10(3)/mcL 06/25/2025 6:47 AM EDT [facility] MPV 13.0(H) 8.8 - 12.5 fL 06/25/2025 6:47 AM EDT [facility] Blood VENOUS BLOOD / Unknown Venipuncture / Unknown 06/25/2025 6:31 AM EDT 06/25/2025 6:45 AM EDT us Duong Vitale MD HEMATOLOGY ORDERABLES Final R esult [facility] [address] [place] [address] * GLUCOSE METER POC (06/25/2025 6:24 AM EDT) [facility] Glucose Meter POC 96 70 - 100 mg/dL 06/25/2025 6:25 AM EDT [facility] Sample Type Capillary 06/25/2025 6:25 AM EDT [facility] Patient Status Non-Critical Patient 06/25/2025 6:25 AM EDT [facility] Blood BLOOD SPECIMEN / Unknown 06/25/2025 6:24 AM EDT 06/25/2025 6:25 AM EDT us Duong Vitale MD POINT OF CARE TEST ORDERABLES Final Result Performing Organization Address City/[facility]/ZIP Co de Phone Number [facility] [address] [place] [address] * GLUCOSE METER POC (06/25/2025 1:14 AM EDT) Glucose Meter POC 76 70 - 100 mg/dL 06/25/2025 1:16 AM EDT [facility] Sample Type Capillary 06/25/2025 1:16 AM EDT [facility] Patient Status Non-Critical Patient 06/25/2025 1:16 AM EDT [facility] Blood BLOOD SPECIMEN / Unknown 06/25/2025 1:14 AM EDT 06/25/2025 1:16 AM EDT us Duong Vitale MD POINT OF CARE TEST ORDERABLES Final Result Performing Organization Address [facility] de Phone Number [facility] [address] [place] [address] * GLUCOSE METER POC (06/24/2025 8:07 PM EDT) Glucose Meter POC 84 70 - 100 mg/dL 06/24/2025 8:09 PM EDT [facility] Sample Type Capillary 06/24/2025 8:09 PM EDT [facility] Patient Status Non-Critical Patient 06/24/2025 8:09 PM EDT [facility] Blood BLOOD SPECIMEN / Unknown 06/24/2025 8:07 PM EDT 06/24/2025 8:09 PM EDT us Duong Vitale MD POINT OF CARE TEST ORDERABLES Final Result [facility] [address] [place] [address] * ECG AND WAVEFORMS - TELEMETRY (06/24/2025 7:53 PM EDT) ECG INTERPRET Atrial Fib [facility] 06/24/2025 7:53 PM EDT Narrative [facility] - 06/24/2025 7:53 PM EDT See Clinical Report link for waveform capture us Unknown Provider POINT OF CARE CARDIOLOGY Final Result Performing Organization Address City/[facility]/ZIP Co de Phone Number [facility] [address] [place] [address] * (ABNORMAL) GLUCOSE METER POC (06/24/2025 5:10 PM EDT) Glucose Meter POC 129(H) 70 - 100 mg/dL 06/24/2025 5:11 PM EDT [facility] Sample Type Capillary 06/24/2025 5:11 PM EDT [facility] Patient Status Non-Critical Patient 06/24/2025 5:11 PM EDT [facility] Blood BLOOD SPECIMEN / Unknown 06/24/2025 5:10 PM EDT 06/24/2025 5:11 PM EDT us Duong Vitale MD POINT OF CARE TEST ORDERABLES Final Result Performing Organization Address City/[facility]/ZIP Co de Phone Number [facility] [address] [place] [address] * (ABNORMAL) GLUCOSE METER POC (06/24/2025 4:19 PM EDT) Glucose Meter POC 65(L) 70 - 100 mg/dL 06/24/2025 4:22 PM EDT [facility] Sample Type Capillary 06/24/2025 4:22 PM EDT [facility] Patient Status Non-Critical Patient 06/24/2025 4:22 PM EDT [facility] Blood BLOOD SPECIMEN / Unknown 06/24/2025 4:19 PM EDT 06/24/2025 4:22 PM EDT us Duong Vitale MD POINT OF CARE TEST ORDERABLES Final Result [facility] [address] [place] [place] [address] * CT HEAD WO [...] - 4.5 mg/dL 06/24/2025 12:57 PM EDT [facility] Blood VENOUS BLOOD / Unknown Venipuncture / Unknown 06/24/2025 12:25 PM EDT 06/24/2025 12:34 PM EDT Spencer Luna [employer] CHEMISTRY ORDERABLES Fin al Result Performing Organization Address [facility] de Phone Number [facility] [address] [place] [address] * (ABNORMAL) MAGNESIUM LEVEL (06/24/2025 12:25 PM EDT) Magnesium 3.0(H) 1.6 - 2.4 mg/dL 06/24/2025 12:57 PM EDT [facility] Blood VENOUS BLOOD / Unknown Venipuncture / Unknown 06/24/2025 12:25 PM EDT 06/24/2025 12:34 PM EDT Spencer Luna [employer] CHEMISTRY ORDERABLES Fin al Result Performing Organization Address [facility] de Phone Number [facility] [address] [place] [address] * (ABNORMAL) GLUCOSE METER POC (06/24/2025 12:16 PM EDT) Glucose Meter POC 112(H) 70 - 100 mg/dL 06/24/2025 12:18 PM EDT [facility] Sample Type Capillary 06/24/2025 12:18 PM EDT [facility] Patient Status Non-Critical Patient 06/24/2025 12:18 PM EDT [facility] Blood BLOOD SPECIMEN / Unknown 06/24/2025 12:16 PM EDT 06/24/2025 12:18 PM EDT Duong Vitale MD POINT OF CARE TEST ORDERABLES Final Result Performing Organization Address [facility] de Phone Number [facility] [address] [place] [address] * SCANNED EKG (06/24/2025 10:55 AM EDT) Anatomical Region Laterality Modality Other 06/24/2025 10:5 5 AM EDT us Unknown Provider IMG ECG ORDERABLES Final Result * (ABNORMAL) GLUCOSE METER POC (06/24/2025 8:15 AM EDT) Glucose Meter POC 236(H) 70 - 100 mg/dL 06/24/2025 8:17 AM EDT [facility] Sample Type Capillary 06/24/2025 8:17 AM EDT [facility] Patient Status Non-Critical Patient 06/24/2025 8:17 AM EDT [facility] Blood BLOOD SPECIMEN / Unknown 06/24/2025 8:15 AM EDT 06/24/2025 8:17 AM EDT us Duong Vitale MD POINT OF CARE TEST ORDERABLES Final Result Performing Organization Address City/State/[facility] Co de Phone Number [facility] [address] [place] [phone] * (ABNORMAL) BLOOD GAS ARTERIAL (06/24/2025 5:26 AM EDT) pH 7.45 7.35 - 7.45 pH 06/24/2025 5:39 AM EDT [facility] pCO2 31(L) 35 - 45 mmHg 06/24/2025 5:39 AM EDT [facility] pO2 86 80 - 100 mmHg 06/24/2025 5:39 AM EDT [facility] HCO3 21.8(L) 22.0 - 26.0 mmol/L 06/24/2025 5:39 AM EDT [facility] TCO2 21(L) 22 - 29 mmol/L 06/24/2025 5:39 AM EDT [facility] Base Excess -1.8 -2.0 - 3.0 mmol/L 06/24/2025 5:39 AM EDT [facility] O2 Sat 97.7 95.0 - 98.0 % 06/24/2025 5:39 AM EDT [facility] Inspired O2 50 06/24/2025 5:39 AM EDT [facility] P/F Ratio 172(L) 300 - 500 mmHg 06/24/2025 5:39 AM EDT [facility] Comment: P/F ratio alone cannot diagnose ARDS. However, the following scale may be used to help classify Adult Respiratory Distress Syndrome (ARDS) severity: 200-300: Mild ARDS 100-199: Moderate ARDS <100: Severe ARDS Blood ARTERIAL BLOOD / Unknown Arterial / Unknown 06/24/2025 5:26 AM EDT 06/24/2025 5:32 AM EDT John Rich MD CHEMISTRY ORDERABLES Final Resu lt Performing Organization Address City/[facility]/ZIP Co de Phone Number [facility] [address] [place] [address] * T4, FREE (THYROXINE) (06/24/2025 5:10 AM EDT) Free T4 0.98 0.80 - 1.80 ng/dL 06/24/2025 3:36 PM EDT [facility] [employer] Blood VENOUS BLOOD / Unknown Venipuncture / Unknown 06/24/2025 5:10 AM EDT 06/24/2025 5:32 AM EDT Narrative [facility] [employer] - 06/24/2025 3:36 PM EDT Ingestion of angie doses of biotin (>5 mg/day) taken within 8 hours of drawing blood sample can interfere with this immunoassay test. Lianet Harris APRN CHEMISTRY ORDERABLES Fi nal Result Performing Organization Address City/[facility]/ZIP Co de Phone Number [employer] [address] [facility] , [place] [address] * (ABNORMAL) TSH REFLEX TO FT4 (06/24/2025 5:10 AM EDT) TSH Reflex 10.400(H) 0.270 - 4.200 mcIU/mL 06/24/2025 2:51 PM EDT [facility] [employer] Blood VENOUS BLOOD / Unknown Venipuncture / Unknown 06/24/2025 5:10 AM EDT 06/24/2025 5:32 AM EDT Narrative [facility] [employer] - 06/24/2025 2:51 PM EDT Ingestion of angie doses of biotin (>5 mg/day) taken within 8 hours of drawing blood sample can interfere with this immunoassay test. Lianet Harris APRN CHEMISTRY ORDERABLES Fi nal Result Performing Organization Address [facility] de Phone Number [employer] [address] , [place] [address] * TRIGLYCERIDES (06/24/2025 5:10 AM EDT) Triglyceride 107 <150 mg/dL 06/24/2025 8:05 AM EDT [facility] [employer] Comment: < 150 Normal 150 - 199 Borderline High 200 - 499 High >= 500 Very High Blood VENOUS BLOOD / Unknown Venipuncture / Unknown 06/24/2025 5:10 AM EDT 06/24/2025 5:32 AM EDT Donnie Esqueda MD CHEMISTRY ORDERABLES Final Re sult Performing Organization Address [facility] de Phone Number [employer] [address] , [place] [address] * (ABNORMAL) NT PROBNP (06/24/2025 5:10 AM EDT) NT Pro-BNP 7,992(H) <=624 pg/mL 06/24/2025 5:53 AM EDT [facility] Blood VENOUS BLOOD / Unknown Venipuncture / Unknown 06/24/2025 5:10 AM EDT 06/24/2025 5:32 AM EDT Narrative [facility] - 06/24/2025 5:53 AM EDT An NT pro-BNP level less than 300 pg/mL in any patient, regardless of age, effectively rules out acute CHF with a 99% negative predictive value. Ingestion of angie doses of biotin (>5 mg/day) taken within 8 hours of drawing blood sample can interfere with this immunoassay test. us Duong Vitale MD CHEMISTRY ORDERABLES Final Re sult [facility] [address] [place] [address] * (ABNORMAL) COMPREHENSIVE METABOLIC PANEL (06/24/2025 5:10 AM EDT) Sodium 136 136 - 145 mmol/L 06/24/2025 5:53 AM EDT [facility] Potassium 4.1 3.5 - 5.0 mmol/L 06/24/2025 5:53 AM EDT [facility] Chloride 103 98 - 107 mmol/L 06/24/2025 5:53 AM EDT [facility] Total CO2 21(L) 22 - 29 mmol/L 06/24/2025 5:53 AM EDT [facility] Anion Gap 12 7 - 16 mmol/L 06/24/2025 5:53 AM EDT [facility] Calcium 8.5(L) 8.8 - 10.4 mg/dL 06/24/2025 5:53 AM EDT [facility] Glucose Lvl 229(H) 70 - 99 mg/dL 06/24/2025 5:53 AM EDT [facility] BUN 16 8 - 23 mg/dL 06/24/2025 5:53 AM EDT [facility] Creatinine 1.17 0.51 - 1.30 mg/dL 06/24/2025 5:53 AM EDT [facility] Albumin 3.6 3.2 - 4.6 gm/dL 06/24/2025 5:53 AM EDT [facility] Total Protein 6.5 6.4 - 8.3 gm/dL 06/24/2025 5:53 AM EDT [facility] Bili Total 0.6 0.2 - 1.3 mg/dL 06/24/2025 5:53 AM EDT [facility] ALT 17 <=41 U/L 06/24/2025 5:53 AM EDT [facility] AST 31 <=40 U/L 06/24/2025 5:53 AM EDT [facility] Alk Phos 149(H) 36 - 123 U/L 06/24/2025 5:53 AM EDT [facility] eGFR (CKD-EPIcr 2020) 46(L) >=60 mL/min/1.7 3 m2 06/24/2025 5:53 AM EDT [facility] Comment:Estimated GFR was ca lculated using the CKD-EPIcr (2020) equation refit without race. The equation is recommended by the [employer] - [place] [employer]ph[employer] Task Force. Blood VENOUS BLOOD / Unknown Venipuncture / Unknown 06/24/2025 5:10 AM EDT 06/24/2025 5:32 AM EDT us Duong Vitale MD CHEMISTRY ORDERABLES Final Re sult [facility] [address] [place] [address] * (ABNORMAL) CBC (06/24/2025 5:10 AM EDT) WBC 4.5 3.7 - 10.3 x10(3)/mcL 06/24/2025 5:34 AM EDT [facility] RBC 2.23(L) 3.90 - 5.20 x10(6)/mcL 06/24/2025 5:34 AM EDT [facility] Hgb 8.3(L) 11.2 - 15.7 g/dL 06/24/2025 5:34 AM EDT [facility] Hct 25.0(L) 34.0 - 45.0 % 06/24/2025 5:34 AM EDT [facility] MCV 112.1(H) 80.0 - 100.0 fL 06/24/2025 5:34 AM EDT [facility] MCH 37.2(H) 26.0 - 34.0 pg 06/24/2025 5:34 AM EDT [facility] MCHC 33.2 30.7 - 35.5 g/dL 06/24/2025 5:34 AM EDT [facility] RDW 20.0(H) <=14.9 % 06/24/2025 5:34 AM EDT [facility] Platelet 83(L) 155 - 369 x10(3)/mcL 06/24/2025 5:34 AM EDT [facility] MPV 12.8(H) 8.8 - 12.5 fL 06/24/2025 5:34 AM EDT [facility] Blood VENOUS BLOOD / Unknown Venipuncture / Unknown 06/24/2025 5:10 AM EDT 06/24/2025 5:32 AM EDT us uDong Vitale MD HEMATOLOGY ORDERABLES Final R esult Performing Organization Address City/[facility] Co de Phone Number [facility] [address] [place] [address] * (ABNORMAL) GLUCOSE METER POC (06/24/2025 5:05 AM EDT) [facility] Glucose Meter POC 208(H) 70 - 100 mg/dL 06/24/2025 5:07 AM EDT [facility] Sample Type Venous 06/24/2025 5:07 AM EDT [facility] Patient Status Critical Patient 06/24/2025 5:07 AM EDT [facility] Blood BLOOD SPECIMEN / Unknown 06/24/2025 5:05 AM EDT 06/24/2025 5:07 AM EDT us Duong Vitale MD POINT OF CARE TEST ORDERABLES Final Result Performing Organization Address [facility] de Phone Number [facility] [address] [place] [address] * XR CHEST AP PORTABLE (06/24/2025 4:17 [...] - 7.45 pH 06/24/2025 2:33 AM EDT [facility] pCO2 38 35 - 45 mmHg 06/24/2025 2:33 AM EDT [facility] pO2 56(L) 80 - 100 mmHg 06/24/2025 2:33 AM EDT [facility] HCO3 22.3 22.0 - 26.0 mmol/L 06/24/2025 2:33 AM EDT [facility] TCO2 21(L) 22 - 29 mmol/L 06/24/2025 2:33 AM EDT [facility] Base Excess -2.5(L) -2.0 - 3.0 mmol/L 06/24/2025 2:33 AM EDT [facility] O2 Sat 86.7(L) 95.0 - 98.0 % 06/24/2025 2:33 AM EDT [facility] Inspired O2 70 06/24/2025 2:33 AM EDT [facility] P/F Ratio 80(L) 300 - 500 mmHg 06/24/2025 2:33 AM EDT [facility] Comment: P/F ratio alone cannot diagnose ARDS. However, the following scale may be used to help classify Adult Respiratory Distress Syndrome (ARDS) severity: 200-300: Mild ARDS 100-199: Moderate ARDS <100: Severe ARDS Blood ARTERIAL BLOOD / Unknown Arterial / Unknown 06/24/2025 2:25 AM EDT 06/24/2025 2:29 AM EDT us Donnie Esqueda MD CHEMISTRY ORDERABLES Final Re sult [facility] [address] [place] [address] * XR CHEST AP PORTABLE (06/24/2025 12:59 [...] the ordering clinician. us Donnie Esqueda MD [facility] DIAGNOSTIC IMAGING ORDERA BLES Final Result * [...] office of the ordering clinician. us Donnie WILLAMS DI[facility]NO[facility] ORDERA BLES Final Result * EK EKG 12 LEAD (06/24/2025 12:05 AM EDT) Anatomical Region Laterality Modality Electrocardiogra phy 06/24/2025 7:30 AM EDT Impressions 06/24/2025 8:[address] 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 : 1940 Requested By: DONNIE ESQUEDA Order Number: [id number] Reading MD: Sukh Garner Measurements Intervals [place] Rate: 54 P: 0 MN: 0 QRS: 39 QRSD: 89 T: 0 [...] Room: [facility] Gender: Female Air Conditioning Installer Supervisor: Rzea : 1940 Requested By: DONNIE ESQUEDA Order Number: [id number] Reading MD: Sukh Garner Measurements Intervals [place] Rate: 54 P: 0 MN: 0 QRS: 39 QRSD: 89 T: 0 [...] - 100 mg/dL 06/24/2025 12:06 AM EDT [facility] Sample Type Venous 06/24/2025 12:06 AM EDT [facility] Patient Status Critical Patient 06/24/2025 12:06 AM EDT [facility] Blood BLOOD SPECIMEN / Unknown 06/24/2025 12:04 AM EDT 06/24/2025 12:06 AM EDT us Duong Vitale MD POINT OF CARE TEST ORDERABLES Final Result Performing Organization Address City/[facility]/ZIP Co de Phone Number [facility] [address] [place] [address] * ECG AND WAVEFORMS - TELEMETRY (06/23/2025 11:59 PM EDT) [facility] ECG INTERPRET Sinus Bradycardia [facility] 06/23/2025 11:5 9 PM EDT Narrative [facility] - 06/24/2025 12:04 AM EDT qj Pause 3.57 See Clinical Report link for waveform capture us Unknown Provider POINT OF CARE CARDIOLOGY Final Result Performing Organization Address [facility] Co de Phone Number [facility] [address] [place] [address] * ECG AND WAVEFORMS - TELEMETRY (06/23/2025 11:59 PM EDT) [facility] Signature ECG INTERPRET Sinus Bradycardia [facility] 06/23/2025 11:5 9 PM EDT Narrative [facility] - 06/24/2025 12:02 AM EDT qj Pause 3.57 See Clinical Report link for waveform capture us Unknown Provider POINT OF CARE CARDIOLOGY Final Result Performing Organization Address [facility] Co de Phone Number [facility] [address] [place] [address] * ECG AND WAVEFORMS - TELEMETRY (06/23/2025 11:59 PM EDT) ECG INTERPRET Atrial Fib [facility] 06/23/2025 11:5 9 PM EDT Narrative [facility] - 06/24/2025 12:00 AM EDT Afib/qj Pause 3.10 See Clinical Report link for waveform capture us Unknown Provider POINT OF CARE CARDIOLOGY Final Result Performing Organization Address [facility] Co de Phone Number [facility] [address] [place] [address] * ECG AND WAVEFORMS - TELEMETRY (06/23/2025 11:55 PM EDT) ECG INTERPRET Sinus Bradycardia [facility] 06/23/2025 11:5 5 PM EDT Narrative [facility] - 06/23/2025 11:56 PM EDT Pause 2.72 See Clinical Report link for waveform capture us Unknown Provider POINT OF CARE CARDIOLOGY Final Result Performing Organization Address [facility] de Phone Number [facility] [address] [place] [address] * ECG AND WAVEFORMS - TELEMETRY (06/23/2025 9:30 PM EDT) ECG INTERPRET Sinus Bradycardia [facility] 06/23/2025 9:30 PM EDT Narrative [facility] - 06/23/2025 9:34 PM EDT Pause 3.09 See Clinical Report link for waveform capture us Unknown Provider POINT OF CARE CARDIOLOGY Final Result Performing Organization Address [facility] de Phone Number [facility] [address] [place] [address] * ECG AND WAVEFORMS - TELEMETRY (06/23/2025 7:00 PM EDT) ECG INTERPRET Atrial Fib [facility] 06/23/2025 7:00 PM EDT Narrative [facility] - 06/23/2025 7:51 PM EDT Routine 1900/Frequent PVC/qj QRS 0.10 Pause 2.73 See Clinical Report link for waveform capture us Unknown Provider POINT OF CARE CARDIOLOGY Final Result Performing Organization Address City/[facility]/ZIP Co de Phone Number [facility] [address] [place] [address] * ECG AND WAVEFORMS - TELEMETRY (06/23/2025 6:53 PM EDT) ECG INTERPRET Sinus Bradycardia [facility] 06/23/2025 6:53 PM EDT Narrative [facility] - 06/23/2025 6:55 PM EDT -HB QRS 0.06 See Clinical Report link for waveform capture us Unknown Provider POINT OF CARE CARDIOLOGY Final Result Performing Organization Address [facility] Co de Phone Number [facility] [address] [place] [address] * EXTRA HUITRON URINE CX (06/23/2025 5:11 PM EDT) Urine STRUCTURE OF URINARY TRACT PROPER / Unknown 06/23/2025 5:11 PM EDT 06/23/2025 5:29 PM EDT us Duong Vitale MD MICROBIOLOGY - GENERAL ORDERA BLES Final Result Performing Organization Address [facility] Co de Phone Number [facility] [address] [place] [phone] * URINALYSIS REFLEX (06/23/2025 5:11 PM EDT) UA Color Yellow 06/23/2025 5:33 PM EDT [facility] UA Appear Clear Clear 06/23/2025 5:33 PM EDT [facility] UA Glucose Negative Negative mg/dL 06/23/2025 5:33 PM EDT [facility] UA Ketones Negative Negative mg/dL 06/23/2025 5:33 PM EDT [facility] UA Blood Negative Negative 06/23/2025 5:33 PM EDT [facility] UA pH 6.5 5.0 - 8.0 pH 06/23/2025 5:33 PM EDT [facility] UA Protein Negative Negative mg/dL 06/23/2025 5:33 PM EDT [facility] UA Urobilinogen Normal <=1 mg/dL 5:33 PM EDT [facility] UA Bili Negative Negative 06/23/2025 5:33 PM EDT [facility] UA Nitrite Negative Negative 06/23/2025 5:33 PM EDT [facility] UA Leuk Est Negative Negative 06/23/2025 5:33 PM EDT [facility] UA Spec Grav 1.011 1.001 - 1.035 no units 06/23/2025 5:33 PM EDT [facility] Comment:Reference range helga d for random specimens only. UA WBC 1 0 - 4 /HPF 06/23/2025 5:33 PM EDT [facility] UA RBC 1 0 - 3 /HPF 06/23/2025 5:33 PM EDT [facility] Urine STRUCTURE OF URINARY TRACT PROPER / Unknown 06/23/2025 5:11 PM EDT 06/23/2025 5:29 PM EDT us Duong Vitale MD URINE ORDERABLES Final Result Performing Organization Address City/[facility]/ZIP Co de Phone Number [facility] [address] [place], [place] [id number] * ECG AND WAVEFORMS - TELEMETRY (06/23/2025 4:41 PM EDT) ECG INTERPRET Sinus Arrythmia [facility] 06/23/2025 4:41 PM EDT Narrative [facility] - 06/23/2025 4:45 PM EDT BIGEMINY ADMIT -HB QRS 0.09 See Clinical Report link for waveform capture us Unknown Provider POINT OF CARE CARDIOLOGY Final Result Performing Organization Address City/[facility]/ZIP Co de Phone Number [facility] [address] [place], [place] [phone] * (ABNORMAL) TROPONIN-T HIGH SENSITIVITY 2HR (06/23/2025 4:11 PM EDT) [id number]-iLkohvrmm-E 2HR 83(H) <14 ng/L 06/23/2025 4:36 PM EDT [facility] hs-cTnT 2Hr Delta from Baseline -9 <4 ng/L 06/23/2025 4:36 PM EDT [facility] Blood VENOUS BLOOD / Unknown Venipuncture / Unknown 06/23/2025 4:11 PM EDT 06/23/2025 4:14 PM EDT Narrative [facility] - 06/23/2025 4:36 PM EDT Ingestion of angie doses of biotin (>5 mg/day) taken within 8 hours of drawing blood sample can interfere with this immunoassay test. us Stephan Rodriguez MD CHEMISTRY ORDERABLES Final R esult [facility] [address] [place] [address] * CT ANGIOGRAM PULMONARY W [...] arch aneurysm. No pneumothorax. Small left and dgcma-fh-sedzlyot right pleural effusions. Emphysema. Opacities dependently in [...] using Isovue 370 IVcontrast as recorded in [facility]. 2-D multiplanar reconstructions and 3-D MIP reconstructions reviewed. Dose 1 : CT DLP Total : 109.65 mGycm DLP Spiral Max : 96.21 mGycm Maximum CTDI Vol : 9.53 mGy FINDINGS: Adequate visualization of the pulmonary arteries to the segmental/subsegmental level. No acute pulmonary embolism. No aortic arch aneurysm. No pneumothorax. Small left and vwxbq-zc-ovsfbnmy right pleuraleffusions. Emphysema. Opacities dependently in the [...] 7,449(H) <=624 pg/mL 06/23/2025 1:58 PM EDT [facility] Blood VENOUS BLOOD / Unknown Venipuncture / Unknown 06/23/2025 1:28 PM EDT 06/23/2025 1:35 PM EDT Narrative [facility] - 06/23/2025 1:58 PM EDT [...] ORDERABLES Final R esult Performing Organization Address [facility] Co de Phone Number [facility] [address] [place] [address] * (ABNORMAL) PARTIAL THROMBOPLASTIN TIME (06/23/2025 1:28 PM EDT) PTT 37.0(H) 25.7 - 36.8 second(s) 06/23/2025 1:48 PM EDT [facility] Comment: Therapeutic range for unfractionated [...] HEMATOLOGY ORDERABLES Final Result Performing Organization Address [facility] de Phone Number [facility] [address] [place] [address] * (ABNORMAL) PT / INR (06/23/2025 1:28 PM EDT) PT 15.3(H) 10.5 - 13.6 second(s) 06/23/2025 1:48 PM EDT [facility] INR 1.32(H) 0.91 - 1.18 (ratio) 06/23/2025 1:48 PM EDT [facility] Comment: Level of Therapy Indications Target INR Range Standard Dose Treatment and prophylaxis of venous 2.0 - 3.0 thrombosis, pulmonary embolism High Dose High risk patients with mechanical 2.5 - 3.5 heart valves Blood VENOUS BLOOD / Unknown Venipuncture / Unknown 06/23/2025 1:28 PM EDT 06/23/2025 1:35 PM EDT Stephan Rodriguez MD HEMATOLOGY ORDERABLES Final Result Performing Organization Address [facility] Co de Phone Number [facility] [address] [place] [address] * (ABNORMAL) D-DIMER (06/23/2025 1:28 PM EDT) D-Dimer 1,389(H) <=500 ng/mL FEU 06/23/2025 1:48 PM EDT [facility] Comment:This is an automated latex [...] HEMATOLOGY ORDERABLES Final Result Performing Organization Address [facility] de Phone Number [facility] [address] [place] [address] * (ABNORMAL) TROPONIN-T HIGH SENSITIVITY BASELINE W/ REFLEX (06/23/2025 1:28 PM EDT) bh-vDfsmsqoo-I 92(H) <14 ng/L 06/23/2025 2:10 PM EDT [facility] Blood VENOUS BLOOD / Unknown Venipuncture / Unknown 06/23/2025 1:28 PM EDT 06/23/2025 1:35 PM EDT Narrative [facility] - 06/23/2025 2:10 PM EDT Ingestion of nagie doses of biotin (>5 mg/day) taken within 8 hours of drawing blood sample can interfere with this immunoassay test. Stephan Rodriguez MD CHEMISTRY ORDERABLES Final R esult Performing Organization Address City/[facility]/ZIP Co de Phone Number [facility] [address] [place] [address] * (ABNORMAL) BASIC METABOLIC PANEL (06/23/2025 1:28 PM EDT) Sodium 138 136 - 145 mmol/L 06/23/2025 1:58 PM EDT [facility] Potassium 4.5 3.5 - 5.0 mmol/L 06/23/2025 1:58 PM EDT [facility] Chloride 107 98 - 107 mmol/L 06/23/2025 1:58 PM EDT [facility] Total CO2 20(L) 22 - 29 mmol/L 06/23/2025 1:58 PM EDT [facility] Anion Gap 11 7 - 16 mmol/L 06/23/2025 1:58 PM EDT [facility] Calcium 9.1 8.8 - 10.4 mg/dL 06/23/2025 1:58 PM EDT [facility] Glucose Lvl 116(H) 70 - 99 mg/dL 06/23/2025 1:58 PM EDT [facility] BUN 10 8 - 23 mg/dL 06/23/2025 1:58 PM EDT [facility] Creatinine 0.84 0.51 - 1.30 mg/dL 06/23/2025 1:58 PM EDT [facility] eGFR (CKD-EPIcr 2020) 68 >=60 mL/min/1.7 3 m2 06/23/2025 1:58 PM EDT [facility] Comment:Estimated GFR was ca lculated using the CKD-EPIcr (2020) equation refit without race. The equation is recommended by the National Kid[employer] - [place] [employer] Neph[employer] Task Force. Blood VENOUS BLOOD / Unknown Venipuncture / Unknown 06/23/2025 1:28 PM EDT 06/23/2025 1:35 PM EDT Stephan Rodriguez MD CHEMISTRY ORDERABLES Final R esult Performing Organization Address City/[facility]/ZIP Co de Phone Number [facility] [address] [place] [address] * (ABNORMAL) CBC (06/23/2025 1:28 PM EDT) WBC 3.4(L) 3.7 - 10.3 x10(3)/mcL 06/23/2025 1:37 PM EDT [facility] RBC 2.72(L) 3.90 - 5.20 x10(6)/mcL 06/23/2025 1:37 PM EDT [facility] Hgb 10.2(L) 11.2 - 15.7 g/dL 06/23/2025 1:37 PM EDT [facility] Hct 30.1(L) 34.0 - 45.0 % 06/23/2025 1:37 PM EDT [facility] MCV 110.7(H) 80.0 - 100.0 fL 06/23/2025 1:37 PM EDT [facility] MCH 37.5(H) 26.0 - 34.0 pg 06/23/2025 1:37 PM EDT [facility] MCHC 33.9 30.7 - 35.5 g/dL 06/23/2025 1:37 PM EDT [facility] RDW 19.9(H) <=14.9 % 06/23/2025 1:37 PM EDT [facility] Platelet 84(L) 155 - 369 x10(3)/mcL 06/23/2025 1:37 PM EDT [facility] MPV 12.7(H) 8.8 - 12.5 fL 06/23/2025 1:37 PM EDT [facility] Blood VENOUS BLOOD / Unknown Venipuncture / Unknown 06/23/2025 1:28 PM EDT 06/23/2025 1:35 PM EDT us Stephan Rodriguez MD HEMATOLOGY ORDERABLES Final Result [facility] [address] [place] [address] * EK EKG 12 LEAD (06/23/2025 1:16 PM EDT) Anatomical Region Laterality Modality Electrocardiogra phy 06/23/2025 1:20 PM EDT Impressions 06/23/2025 7:[address] 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 Do not administer if NPO or on clear liquid diet. Not for IV use. Supplied by [facility] Given 06/26/2025 5:14 PM EDT 1 'box' GLUCERNA Therapeutic oral supplement 1 'box' 1 'box', Oral, 2 TIMES DAILY (NUTR), First dose on Tue06/26/25 at 2000, Until Discontinued, [place] Administer orally. Do not administer if NPO [...] by at least 3 hours. Insulin Calculator FEDERAL DISTRICT CLERK - DBN, [place], FTT, ICUs, and CVSICU [...] by at least 3 hours. Insulin Calculator FEDERAL DISTRICT CLERK - DBN, [place], FTT, ICUs, and CVSICU [...] by at least 3 hours. Insulin Calculator FEDERAL DISTRICT CLERK - DBN, [place], FTT, ICUs, and CVSICU [...] every 12 hours, in accordance with the activities aide's recommendation., Goal RASS Score: 0, -1, -2, [...] 101 (Given - Provider: Manuel Frey RN) 09 (Given - Provider: Manuel Frey RN) cyanocobalamin [...] 0911 (Given - Provider: Tamia Morrow RN) 101 [...] dose on Tue06/26/25 at 2000, Until Discontinued, [place] Administer orally. Do not administer if NPO [...] by at least 3 hours. Insulin Calculator FEDERAL DISTRICT CLERK - DBN, [place], FTT, ICUs, and CVSICU [...] RN)2100 (Non- Med Documentation - Provider: Radha Martinez, MAHENDRA) 0839 (Non- Med Documentation - Provider: Manuel [...] Martinez RN) 101 (Given - Provider: Manuel Frey, MAHENDRA)2100 (Given - Provider: Radha Martinez RN) 0946 [...] at 1315 1426 (Started - Provider: Manuel Frey, RN)1456 (Stopped - Provider: Manuel Frey, RN) metoprolol succinate (TOPROL-XL) XL tablet 25 [...] crush or chew 910 (Given - Provider: aTmia Morrow RN)2122 (Given - Provider: Radha Martinez RN) 1011 (Given - Provider: Manuel Frey RN)2100 (Given - Provider: Radha Martinez RN) 09 (Given - Provider: Manuel Frey RN) senna-docusate (SENOKOT-S) 8.6-50 mg per tablet 3 Tablet 3 Tablet, Oral, 2 TIMES DAILY, First dose on 07/01/25 at 1445, Until Discontinued 1425 (Given - Provider: Manuel Frey RN)2100 (Not Given - Provider: Radha Martinez RN - Reason: Contraindicated - Comment: pt has had mult BMs this evening) 09 (Given - Provider: Manuel Frey RN) sodium [...] Anxiety 0010 (Given - Provider: Candelario Cook RN)213 (Given - Provider: Radha Martinez, MAHENDRA) 2100 (Given - Provider: Radha [...] by at least 3 hours. Insulin Calculator FEDERAL DISTRICT CLERK - DBN, [place], FTT, ICUs, and CVSICU [...] 0-40 Units 2 06/25/2025 06/24/2025 Insulin Calculator (FEDERAL DISTRICT CLERK) - FSBS (Correction Only) Intake Input 3 [...] - Potassium 1 0 06/24/2025 Insulin Calculator (FEDERAL DISTRICT CLERK) - FSBS (Correction Only) Input 1 06/24/2025 [...] UROLOGY 1 06/25/2025 IP CONSULT TO [facility]ICAL SEC[facility]ITY [facility] OPERATOR 1 025 IP CONSULT TO NEUROLOGY 1 06/24/2025 IP CONSULT TO NUTRITION 1 06/24/2025 IP CONSULT TO CARDIOLOGY 1 06/23/2025 IP CONSULT TO VASCULAR SURGERY 1 06/23/2025 OT Count Last Ordered Date First Orde red Date IP CONSULT TO OCCUPATIONAL THERAPY 1 2024 PT Count Last Ordered Date First Orde red Date IP CONSULT TO PHYSICAL THERAPY 1 06/26/2025 RESEARCH SOFTWARE ENGINEER Count Last Ordered Date First Orde red [...] documented as of this encounter Care Teams College Administrator Relationship Specialty Start Date End Date No Pcp, Per Patient PCP - General 06/04/24 documented as of this encounter
--- OUTSIDE RECORDS SUMMARY | 2025-08-05 15:45 | XMS_ITS | Encounter Summary ---
Author Organization [place] [address] Care Team Providers Care Jammer Hooker Name Role Phone No Pcp, Per Patient Primary Care Provider Evelyne prabhakar Reason for Visit * Reason Comments Peripheral Arterial Disease (PAD) Encounter Details Date Type Department Care Team (Late st Contact Info) Description 08/05/2025 3:45 PM EDT Office Visit [facility]P Vascular Surg Edg 20 [facility] [address] [place] [address] Vargas Wolf MD [address] [place] [address] [phone] PAD (peripheral artery disease) (Primary Dx); Critical limb ischemia of left lower extremity (HCC) Social History Tobacco Use Types Packs/Day Years Used Date Smoking Tobacco: Former Cigarettes Q uit: 1991 Passive Smoke Exposure: Past Smokeless Tobacco: Never Alcohol Use Standard Drinks/Week Comments Not Currently 0 (1 standard drink = 0.6 oz pur e alcohol) [facility] Utilities Answer Date Recorded In the past 12 months has Head Held High, gas, oil, or water [employer] threatened to shut off services in your home? No 06/23/2025 Overall Financial Resource Strain (CARDIA) Answe r Date Recorded How hard is it for you to pa y for the very basics like food, housing, medical care, and heating? Not very hard 06/23/2025 PHQ-2 Answer Date Recorded PHQ-2 Total Score 0 06/23/2025 [facility] - Occupational Stress Questionnaire Answer Date [...] Never true 06/23/2025 [facility] IP Transportation Answer D ate Recorded [...] Left AKA 01/30/2025- Lt LE Angiogram with SIGNALS COLLECTION TECHNICIAN of peroneal and tibioperoneal trunk with 1.5 x 80 mm and 2 x 200 balloons. SIGNALS COLLECTION TECHNICIAN of the popliteal artery with 3.5 x 120 mm and 4 x 80 mm balloons. (Vargas Wolf MD) HPI Patients past medical, family and social histories were reviewed and updated. There are no changes except as noted. Past Medical History[1] Patient Active Problem List Diagnosis Date Noted Phantom pain after amputation of lower extremity ([facility]) 06/27/2025 Seizure ([facility]) 06/24/2025 Respiratory arrest ([facility]) 06/24/2025 Atrial fibrillation with slow ventricular response ([facility]) 06/24/2025 Atrial fibrillation with RVR ([facility]) 06/23/2025 Acute cystitis without hematuria 05/28/2025 Metabolic encephalopathy 05/27/2025 Acute respiratory failure with hypoxemia ([facility]) 05/26/2025 Acute pulmonary edema ([facility]) 05/26/2025 Hypotension 05/26/2025 Pancytopenia ([facility]) 05/21/2025 Palliative care by specialist 05/13/2025 Goals of care, counseling/discussion 05/13/2025 Wound dehiscence 05/01/2025 Status post amputation of left foot through metatarsal bone ([facility]) 03/23/2025 Complication of foot amputation stump ([facility]) 03/23/2025 Diabetic foot infection ([facility]) 03/23/2025 S/P transmetatarsal amputation of foot, left ([facility]) 03/23/2025 Gangrene ([facility]) 03/09/2025 Left foot pain 03/07/2025 Gangrene due to arterial insufficiency ([facility]) 03/07/2025 Critical limb ischemia of left lower extremity ([facility]) 01/30/2025 PVD (peripheral vascular disease) 01/29/2025 Chest pain 01/29/2025 Osteomyelitis of great toe ([facility]) 01/23/2025 Abscess of toe of left foot 01/20/2025 Cellulitis and abscess of toe of left foot 01/19/2025 Exostosis of toe 01/19/2025 Atherosclerosis of [place] artery of extremity 01/19/2025 Constipation 01/15/2025 Stage [...] of traumatic brain injury - hemorrhagic cerebral muvrfrvbt01/19/2024 Hx of subdural hemorrhage 06/04/2024 Macrocytosis 06/04/2024 [...] w/o infarct, bilateral 04/28/2023 Coronary arteriosclerosis in [place] artery // Hx of CABG 04/09/2016 Secondary open-angle glaucoma of right eye, severe stage 12/09/2015 Type 2 diabetes mellitus, without long-term current use of insulin (HCC) 12/09/2015 Mixed hyperlipidemia 09/30/2014 Hypertension associated with [...] DAILY nalOXone (NARCAN) 4 mg, Nasal, PRN, [place] the contents of one device (0.1mL) into [...] 01/30/2025 IR ANGIOGRAM EXTREMITY LEFT 01/30/2025 Vargas Wlof MD EDG IR IR ANGIOGRAM FEMORAL ARTERIO SHIFT 01/17/2025 IR ANGIOGRAM FEMORAL ARTERIO SHIFT 01/17/2025 Vargas Wolf MD [place] IR IR ANGIOGRAM FEMORAL ARTERIO SHIFT 05/10/2025 IR ANGIOGRAM FEMORAL ARTERIO SHIFT 05/10/2025 Vargas Wolf MD EDG IR IR REVAS FEM POP ART UNILAT W SIGNALS COLLECTION TECHNICIAN 01/30/2025 IR REVAS FEM POP ART UNILAT W SIGNALS COLLECTION TECHNICIAN 01/30/2025 Vargas Wolf MD EDG IR [...] EST Office Visit SEP Vascular Surg Edg [address] [place] [phone] Vargas Wolf MD [address] [place] [address] [phone] documented as of this encounter Visit Diagnoses [...] documented as of this encounter Care Teams Jammer Hooker Relationship Specialty Start Date End Date No Pcp, Per Patient PCP - General 06/04/24 documented as of this encounter
--- OUTSIDE RECORDS SUMMARY | 2025-08-07 08:38 | XMS_ITS | Encounter Summary ---
Author Organization [employer] ([place], [place], [place], [place]) Address [address] [place] [address] Care Team Providers Care Wheelchair Van Driver Name Role Phone Jay Howell MD Primary Care Provider [phone] Encounter Details Date Type Department Care Team (Late st Contact Info) Description 03/17/2021 Transcribed Document [facility] Family [place] [facility] [address] ProviderJessie MD [address] [place], [place] [address] Social History Tobacco Use Types Packs/Day Years [...] - 03/17/2021 12:33 EDT Electronically signed by [facility], [facility] Conversion Furniture Assembler And Installer Cerner at 02/04/2023 1:58 PM CDT documented in this encounter Plan of Treatment Not on file documented as of this encounter Visit Diagnoses Not on filedocumented in this encounter Care Teams Wheelchair Van Driver Relationship Specialty Start Date End Date Jay Howell MD [address] [place] [phone] PCP - General Emergency Medicine 11/12/23 documented as of this encounter
--- OUTSIDE RECORDS SUMMARY | 2025-08-07 08:38 | XMS_ITS | Clinical Summary ---
Author Organization [facility] Address [address] [place] [address], [address] [place] [address] Care Team Providers Care Metal Template Maker Name Role Phone Jay Howell MD Primary Care Provider [phone] Allergies Active Allergy Reactions Criticality Noted Date [...] patient's age to [place] [address] MEDICARE Care Teams Metal Template Maker Relationship Specialty Start Date End Date Jay Howell MD [facility] [phone] PCP - General Emergency Medicine 03/06/25
--- OUTSIDE RECORDS SUMMARY | 2025-08-07 08:38 | XMS_ITS | Encounter Summary ---
Author Organization [employer] ([place], [place], [place], [place]) Address [address] [place] [address] Care Team Providers Care Rn Ostomy Name Role Phone Jay Howell MD Primary Care Provider [phone] Encounter Details Date Type Department Care Team (Late st Contact Info) Description 03/17/2021 Transcribed Document [facility] Cardiology [address] [place], [place] [phone] Jorje Bení[place] [address] [place] [address] [address] [place] [address] Social History Tobacco Use Types Packs/Day Years [...] 1940 Associated Diagnoses: None Author: JORJE BENÍTEZ MD-[facility] Basic Information Anode Crew Supervisor: Dr. Adry Dumas Chief Complaint Syncope History of Present Illness The patient is an unfortunate 80-year-old female with a known history atherosclerotic cardiovascular disease???status post coronary artery bypass grafting as well as multiple PCI's most recently 2019, hypertension, dyslipidemia, paroxysmal/persistent atrial fibrillation on chronic warfarin, history of carotid disease, anxiety, diabetes mellitus type 2, COPD, and DVT/pulmonary embolism who presented to [facility] after suffering a several episode at [...] Vitamins oral tablet 1 Tab, Oral, Daily Cable 7.5 mg-325 mg oral tablet 1 Tab, [...] Bedtime Problem list: All Problems Arthritis / 4796788 / Confirmed Atrial fibrillation with RVR / 5738803571 / Confirmed Blood clot / 050201817 / Confirmed Cataract / Confirmed Chest pain / 69415697 / Complaint of Clotting disorder / 356893541 / Confirmed COPD / 86446193 / Confirmed Coronary artery disease / 1017052716 / Confirmed Diabetes mellitus / 191003686 / Confirmed GERD - Gastro-esophageal reflux disease / 7852346435 / Confirmed Glaucoma / Confirmed Chronic anticoagulation / 810668128 / Confirmed Hx of pulmonary embolus / 189318882 / Confirmed High blood pressure / 80262815 / Confirmed History of obstructive sleep apnea / 48798318 / Confirmed Hyperlipidemia / 67483761 / Confirmed Multiple renal cysts / 623134321 / Confirmed Emphysema / 191060972 / Confirmed Apnea, sleep / 849784530 / Confirmed Stented coronary artery / 1384132825 / Confirmed Resolved: UTI - Urinary tract infection / 6031533407 Canceled: History of obstructive sleep apnea / 78697345 Histories No education data available. Social & [...] History: Active Cataract Glaucoma Coronary artery disease (2524678387) Stented coronary artery (3470699180) High blood pressure (65898944) Hyperlipidemia (05514443) COPD (73608931) GERD - Gastro-esophageal reflux disease (3504089680) Multiple renal cysts (469521695) Arthritis (3438607) Diabetes mellitus (566260581) Emphysema (245836001) Apnea, sleep (232707567) Hx of pulmonary embolus (037954334) Chronic anticoagulation (853836627) Atrial fibrillation with RVR (3443667503) Resolved UTI - Urinary tract infection (1411008672): Resolved. Family History: Cardiomyopathy Child Stroke Brother Heart attack Brother Sister Leukemia Child Cancer Father Mother Sister Coronary heart disease Child Procedure history: Cardiac Stent on 12/20/2018 at 77 Years. Comments: 03/17/2021 9:03 EVA LAWS RN HARVINDER to LAD Cardiac Stent in 2010 at 70 Years. Cardiac Stent on 01/30/2008 at 67 Years. Comments: 06/13/2020 8:52 EVA LAWS RN PCI w/ [place] stent to D1 Coronary artery bypass graft (765278914) in 1992 at 52 Years. Appendectomy (861006154). back surgury. cataract surgury. Cholecystectomy (46150975). femur repair. Hip replacement (5452968378). Hysterectomy (132720602). uterine suspension. Physical Examination VS/Measurements Vitals Signs [...] (Current Encounter/Past 24 Hours) ProBNP 576 pg/mL MA 03/17/2021 04:45 Blood Gases (Current Encounter/Past 24 Hours) No Blood Gas Results Found (Past 24 Hours) Radiology Results (Last 48 hours) [id number] -- 03/16/2021 15:29 CR Hip Uni Comp [...] filedocumented in this encounter Care Teams Rn Ostomy Relationship Specialty Start Date End Date Jay Howell MD [address] [place] [phone] PCP - General Emergency Medicine 11/12/23 documented as of this encounter
--- OUTSIDE RECORDS SUMMARY | 2025-08-07 08:39 | XMS_ITS | Encounter Summary ---
Author Organization [employer] ([place], [place], [place], [place]) Address [address] [place] [address] Care Team Providers Care Medical Records Manager Name Role Phone Jay Howell MD Primary Care Provider [phone] Encounter Details Date Type Department Care Team (Late st Contact Info) Description 03/17/2021 Transcribed Document [facility] Family Medicine [facility] [place] [address] ProviderJessie MD [address] [place] [phone] Social History Tobacco Use Types Packs/Day Years [...] Lymph # 1.52 x10(3)/uL 03/16/2021 11:38 EDT Wolfe % 5.1 % 03/16/2021 11:38 EDT [place] # 0.50 K/uL 03/16/2021 11:38 EDT Eos [...] Appearance CLEAR2 03/16/2021 14:09 EDT Urine Specific [place] 1.015 03/17/2021 04:10 EDT Urine Specific [place] 1.014 03/16/2021 14:09 EDT Urine pH Dipstick [...] SARS-CoV-2 (COVID19 PCR) NEGATIVE2 03/16/2021 15:20 EDT Electronically signed by Gayle Finnegan Conversion Software Implementation Specialist Cerner at 02/04/2023 2:09 PM CDT documented in this encounter Plan of Treatment Not on file documented as of this encounter Visit Diagnoses Not on filedocumented in this encounter Care Teams Medical Records Manager Relationship Specialty Start Date End Date Jay Howell MD [address] [place] [phone] PCP - General Emergency Medicine 11/12/23 documented as of this encounter
--- OUTSIDE RECORDS SUMMARY | 2025-08-07 08:39 | XMS_ITS | Encounter Summary ---
Author Organization [employer] ([place], [place], [place], [place]) Address [address] [place] [address] Care Team Providers Care Grain Receiver Name Role Phone Jay Howell MD Primary Care Provider [phone] Encounter Details Date Type Department Care Team (Late st Contact Info) Description 03/16/[address] [facility] [place] [address] ProviderJessie MD [address] [place], [place] [address] Social History Tobacco Use Types Packs/Day Years [...] Ambulatory Legal Guardian : Spouse Support Person/Patient Aviation Maintenance Technician : Yes Support Person/Pt Rep Name : Willard Contact Password : Marvin Support Person/Pt Rep Contact Information : [phone] Want Family/Rep/Phys Notified of Admit : No [...] Obtained From : Patient Primary Language : German Preferred Communication Mode : Verbal Communication Barrier : None Fiber Analyst Needed : No VALERIA DOAN RN - [...] Level : 46 or > High Risk [place] Fall Interventions : Adequate lighting, Assistive devices [...] Source : Stated Height Entry Format : O'Brien Height, Feet : 5 ft(Converted to: 152 cm, 60 Inch) Height, Inches : 3 Inch(Converted to: 0 ft 3 Inch, 7.62 cm) Clinical Height : 160.02 cm Weight Source : Standing scale Weight Entry Format : O'Brien Clinical Dosing Weight : 71.82 kg Weight, Pounds : 158 lb Body Surface Area (BSA) : 1.75 m2 Body Mass Index : 28 kg/m2 (HI) [place] Body Weight : 52 kg VALERIA DOAN [...] VALERIA DOAN RN - 03/16/2021 18:52 EDT [place] Suicide Severity Rating Scale (C-SSRS) CSSRS Past [...] filedocumented in this encounter Care Teams Grain Receiver Relationship Specialty Start Date End Date Jay Howell MD [address] [place] [phone] PCP - General Emergency Medicine 11/12/23 documented as of this encounter
--- OUTSIDE RECORDS SUMMARY | 2025-08-07 08:39 | XMS_ITS | Encounter Summary ---
Author Organization [employer] ([place], [place], [place], [place]) Address [address] [place] [address] Care Team Providers Care Historic Interpreter Name Role Phone Jay Howell MD Primary Care Provider [phone] Encounter Details Date Type Department Care Team (Late st Contact Info) Description 08/25/2020 Transcribed Document [facility] Family Medicine [address] [place] [address] ProviderJessie MD [address] [place] [address] Social History Tobacco Use Types Packs/Day Years Used Date Smoking Tobacco: Never Assessed Comments Unknown Sex and Gender Information Value Date Recorded Sex Assigned at Not on file Legal Sex Female 7:30 PM CDT Gender Identity Not on file Sexual Orientation Not on file documented as of this encounter Miscellaneous Notes * Cerner Conversion Note - Jessie ProviderMD - 08/25/2020 4:33 AM BOND TRADER [place] Suicide Severity Rating Scale (C-SSRS) Entered On: 08/25/2020 5:10 EST Performed On: 08/25/2020 5:10 EST by Yajaira Magallon Rn [place] Suicide Severity Rating Scale (C-SSRS) CSSRS Past [...] on filedocumented in this encounter Care Teams Historic Interpreter Relationship Specialty Start Date End Date Jay Howell MD [address] [place] [phone] PCP - General Emergency Medicine 11/12/23 documented as of this encounter
--- OUTSIDE RECORDS SUMMARY | 2025-08-07 08:39 | XMS_ITS | Encounter Summary ---
Author Organization [employer] ([place], [place], [place], [place]) Address [address] [place] [address] Care Team Providers Care Chief Specialist Leed Name Role Phone Jay Howell MD Primary Care Provider [phone] Encounter Details Date Type Department Care Team (Late st Contact Info) Description 08/25/2020 Transcribed Document [facility] [place] Family Medicine [address] [place] [address] ProviderJessie MD [address] [place] [address] Social History Tobacco Use Types Packs/Day Years Used Date Smoking Tobacco: Never Assessed Comments Unknown Sex and Gender Information Value Date Recorded Sex Assigned at Not on file Legal Sex Female 7:30 PM CDT Gender Identity Not on file Sexual Orientation Not on file documented as of this encounter Miscellaneous Notes * Cerner Conversion Note - Jessie ProviderMD - 08/25/2020 4:33 AM TOBACCO SPRAYER ED Assessment Entered On: 08/25/2020 5:16 EST Performed On: 08/25/2020 5:12 EST by Yajaira Magallon, wellness program manager Quick Look Assessment Level of Consciousness : Alert, Awake Affect/Behavior : Appropriate, Calm, Cooperative Orientation : Oriented x 4 Skin Temperature : Warm Skin Description : Normal for ethnicity Yajaira Magallon Rn - 08/25/2020 5:12 EST ED General-Functional Assess Information Obtained From : Patient Preferred Communication Mode : Verbal Communication Barrier : None Primary Language : Emir[place] Any Spiritual/Cultural Needs or Requests : No [...] 08/25/2020 5:12 EST Electronically signed by Sivan, [facility] Conversion Tool And Die Maker Apprentice Cerner at 02/04/2023 2:02 PM CDT documented in this encounter Plan of Treatment Not on file documented as of this encounter Visit Diagnoses Not on filedocumented in this encounter Care Teams Chief Specialist Leed Relationship Specialty Start Date End Date Jay Howell MD [address] [place] [phone] PCP - General Emergency Medicine 11/12/23 documented as of this encounter
--- OUTSIDE RECORDS SUMMARY | 2025-08-07 08:39 | XMS_ITS | Encounter Summary ---
Author Organization [employer] ([place], [place], [place], [place]) Address [address] [place] [address] Care Team Providers Care Auger Mill Operator Name Role Phone Jay Howell MD Primary Care Provider [phone] Encounter Details Date Type Department Care Team (Late st Contact Info) Description 08/24/2020 Transcribed Document [facility] [place] Family Medicine [address] [place] [address] ProviderJessie MD [address] [place], [place] [address]201 Social History Tobacco Use Types Packs/Day Years Used Date Smoking Tobacco: Never Assessed Comments Unknown Sex and Gender Information Value Date Recorded Sex Assigned at Not on file Legal Sex Female 7:30 PM CDT Gender Identity Not on file Sexual Orientation Not on file documented as of this encounter Miscellaneous Notes * Cerner Conversion Note - Historical ProviderMD - 08/24/2020 7:06 PM TANK WAGON OPERATOR CR Ankle Min 3 Vws LT Ordered: [...] on filedocumented in this encounter Care Teams Auger Mill Operator Relationship Specialty Start Date End Date Jay Howell MD [address] [place] [phone] PCP - General Emergency Medicine 11/12/23 documented as of this encounter
--- OUTSIDE RECORDS SUMMARY | 2025-08-07 08:39 | XMS_ITS | Encounter Summary ---
Author Organization [employer] ([place], [place], [place], [place]) Address [address] [place] [address] Care Team Providers Care Mixed Livestock Farm Worker Name Role Phone Jay Howell MD Primary Care Provider [phone] Encounter Details Date Type Department Care Team (Late st Contact Info) Description 03/17/2021 Transcribed Document [facility] [place] [facility] [place] [address] ProviderJessie MD [address] [place], [place] [address]451 Social History Tobacco Use Types Packs/Day Years [...] 03/17/2021 17:25 EDT Electronically signed by Sivan [facility] Conversion Feeder/Folder Cerner at 02/04/2023 2:18 PM CDT documented in this encounter Plan of Treatment Not on file documented as of this encounter Visit Diagnoses Not on filedocumented in this encounter Care Teams Mixed Livestock Farm Worker Relationship Specialty Start Date End Date Jay Howell MD [address] [place] [phone] PCP - General Emergency Medicine 11/12/23 documented as of this encounter
--- OUTSIDE RECORDS SUMMARY | 2025-08-07 08:39 | XMS_ITS | Encounter Summary ---
Author Organization [employer] ([place], [place], [place], [place]) Address [address] [place] [address] Care Team Providers Care Resource Development Director Name Role Phone Jay Howell MD Primary Care Provider [phone] Encounter Details Date Type Department Care Team (Late st Contact Info) Description 03/17/2021 Transcribed Document [facility] [place] Family Medicine [facility] [place] [address] ProviderJessie MD [address] [place], [place] [phone] Social History Tobacco Use Types Packs/Day Years [...] 03/17/2021 15:21 EDT Electronically signed by Sivan [facility] Conversion Conditioning Room Worker Cerner at 02/04/2023 2:16 PM CDT documented in this encounter Plan of Treatment Not on file documented as of this encounter Visit Diagnoses Not on filedocumented in this encounter Care Teams Resource Development Director Relationship Specialty Start Date End Date Jay Howell MD [address] [place] [phone] PCP - General Emergency Medicine 11/12/23 documented as of this encounter
--- OUTSIDE RECORDS SUMMARY | 2025-08-07 08:39 | XMS_ITS | Encounter Summary ---
Author Organization [employer] ([place], [place], [place], [place]) Address [address] [place] [address] Care Team Providers Care Rn Chronic Name Role Phone Jay Howell MD Primary Care Provider [phone] Encounter Details Date Type Department Care Team (Late st Contact Info) Description 03/17/2021 Transcribed Document [facility] [place] [address] [place] [address] ProviderJessie MD [address] [place] [address] Social History Tobacco Use Types Packs/Day Years [...] pain. SOCIAL HISTORY: The patient lives in [place] with her . She has 3 children, 2 of whom are living. 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 She still drives and walks independently. FAMILY [...] are 0 to 1+. Coordination shows intact [id number] on the left and [id number]-be-[id number] on both sides. Gait was not tested. [...] her . I will follow with you. /[id number] Arron Clarke MD WSB/AQ / WSB / MODL /[id number] Electronically signed by Sivan [facility] Conversion Support Associate Cerner at 02/04/2023 2:15 PM CDT documented in this encounter Plan of Treatment Not on file documented as of this encounter Visit Diagnoses Not on filedocumented in this encounter Care Teams Rn Chronic Relationship Specialty Start Date End Date Jay Howell MD [address] [place] [phone] PCP - General Emergency Medicine 11/12/23 documented as of this encounter
--- OUTSIDE RECORDS SUMMARY | 2025-08-07 08:39 | XMS_ITS | Encounter Summary ---
Author Organization [employer] ([place], [place], [place], [place]) Address [address] [place] [address] Care Team Providers Care Woods Superintendent Name Role Phone Jay Howell MD Primary Care Provider [phone] Encounter Details Date Type Department Care Team (Late st Contact Info) Description 03/17/2021 Transcribed Document [facility] [place] [address] [place] [address] ProviderJessie MD [address] [place], [place] [address] Social History Tobacco Use Types Packs/Day Years [...] Tolerance, PT Activity Comment : Poor Hilton Saglado PHYSICAL THERAPIST NON-EXEMPT - 03/18/2021 12:18 EDT [...] PHYSICAL THERAPIST NON-EXEMPT - 03/18/2021 12:18 EDT [facility] Goals Mobility/Bed Mobility LTG PT Grid Goal #1 Activity : Bed mobility Assist : Independent, modified Date to Meet : 04/01/2021 EDT Goal Status : Intial Goal Hilton Salgdao PHYSICAL THERAPIST NON-EXEMPT - 03/18/2021 12:18 EDT [...] on filedocumented in this encounter Care Teams Woods Superintendent Relationship Specialty Start Date End Date Jay Howell MD [address] [place] [phone] PCP - General Emergency Medicine 11/12/23 documented as of this encounter
--- OUTSIDE RECORDS SUMMARY | 2025-08-07 08:39 | XMS_ITS | Encounter Summary ---
Author Organization [employer] ([place], [place], [place], [place]) Address [address] [place] [address] Care Team Providers Care Loan Secretary Name Role Phone Jay Howell MD Primary Care Provider [phone] Encounter Details Date Type Department Care Team (Late st Contact Info) Description 03/17/2021 Transcribed Document [facility] [place] Family [place] [facility] [place] [address] ProviderJessie MD [address] [place] [address] Social History Tobacco Use Types Packs/Day Years [...] filedocumented in this encounter Care Teams Loan Secretary Relationship Specialty Start Date End Date Jay Howell MD [address] [place] [phone] PCP - General Emergency Medicine 11/12/23 documented as of this encounter
--- OUTSIDE RECORDS SUMMARY | 2025-08-07 08:39 | XMS_ITS | Encounter Summary ---
Author Organization [employer] ([place], [place], [place], [place]) Address [address] [place] [address] Care Team Providers Care Fitness Services Manager Name Role Phone Jay Howell MD Primary Care Provider [phone] Encounter Details Date Type Department Care Team (Late st Contact Info) Description 03/17/2021 Transcribed Document [facility] [place] [facility] [place] [address] ProviderJessie MD [address] [place], [place] [address] Social History Tobacco Use Types Packs/Day Years [...] filedocumented in this encounter Care Teams Fitness Services Manager Relationship Specialty Start Date End Date Jay Howell MD [address] [place] [phone] PCP - General Emergency Medicine 11/12/23 documented as of this encounter
--- OUTSIDE RECORDS SUMMARY | 2025-08-07 08:39 | XMS_ITS | Encounter Summary ---
Author Organization [employer] ([place], [place], [place], [place]) Address [address] [place] [address] Care Team Providers Care Leno Sewer Name Role Phone Jay Howell MD Primary Care Provider [phone] Encounter Details Date Type Department Care Team (Late st Contact Info) Description 03/17/2021 Transcribed Document [facility] [facility] [place] [facility] [place] [address] ProviderJessie MD [address] [place], [place] [address] Social History Tobacco Use Types Packs/Day Years [...] the form. Electronically signed by Sivan, [facility] Conversion Service Supervisor Cerner at 02/04/2023 2:16 PM CDT documented in this encounter Plan of Treatment Not on file documented as of this encounter Visit Diagnoses Not on filedocumented in this encounter Care Teams Leno Sewer Relationship Specialty Start Date End Date Jay Howell MD [address] [place] [phone] PCP - General Emergency Medicine 11/12/23 documented as of this encounter
--- OUTSIDE RECORDS SUMMARY | 2025-08-07 08:39 | XMS_ITS | Encounter Summary ---
Author Organization [employer] ([place], [place], [place], [place]) Address [address] [place] [address] Care Team Providers Care Rn Orthopedic Name Role Phone Jay Howell MD Primary Care Provider [phone] Encounter Details Date Type Department Care Team (Late st Contact Info) Description 08/25/2020 Transcribed Document [facility] [place] Family Medicine [address] [place] [address] ProviderJessie MD [address] [place] [address] Social History Tobacco Use Types Packs/Day Years Used Date Smoking Tobacco: Never Assessed Comments Unknown Sex and Gender Information Value Date Recorded Sex Assigned at Not on file Legal Sex Female 7:30 PM CDT Gender Identity Not on file Sexual Orientation Not on file documented as of this encounter Miscellaneous Notes * Cerner Conversion Note - Historical MD Alpa - 08/25/2020 10:53 AM MANAGER TRAINING AND DEVELOPMENT DATE OF CONSULTATION: 08/25/2020 INFECTIOUS DISEASE CONSULTATION [...] team following as above. Discussed with them. /[id number] MD VANESSA Campa/AQ / VANESSA / MODL /[id number] CC: MD David Campa MD Electronically signed by [facility], [facility] Conversion Pet Caretaker Cerner at 02/04/2023 2:05 PM CDT documented in this encounter Plan of Treatment Not on file documented as of this encounter Visit Diagnoses Not on filedocumented in this encounter Care Teams Rn Orthopedic Relationship Specialty Start Date End Date Jay Howell MD [address] [place] [phone] PCP - General Emergency Medicine 11/12/23 documented as of this encounter
--- OUTSIDE RECORDS SUMMARY | 2025-08-07 08:39 | XMS_ITS | Encounter Summary ---
Author Organization [employer] ([place], [place], [place], [place]) Address [address] [place] [address] Care Team Providers Care Bilingual Legal Assistant Name Role Phone Jay Howell MD Primary Care Provider [phone] Encounter Details Date Type Department Care Team (Late st Contact Info) Description 03/16/2021 Transcribed Document [facility] [place] Family Medicine [address] [place] [address] ProviderJessie MD [address] [place], [place] [phone] Social History Tobacco Use Types Packs/Day Years [...] on filedocumented in this encounter Care Teams Bilingual Legal Assistant Relationship Specialty Start Date End Date Jay Howell MD [address] [place] [phone] PCP - General Emergency Medicine 11/12/23 documented as of this encounter
--- OUTSIDE RECORDS SUMMARY | 2025-08-07 08:39 | XMS_ITS | Encounter Summary ---
Author Organization [employer] ([place], [place], [place], [place]) Address [address] [place] [address] Care Team Providers Care Pt Skilled Name Role Phone Jay Howell MD Primary Care Provider [phone] Encounter Details Date Type Department Care Team (Late st Contact Info) Description 08/25/2020 Transcribed Document [facility] [place] [address] [place] [address] ProviderJessie MD [address] [place] [address] Social History Tobacco Use Types Packs/Day Years Used Date Smoking Tobacco: Never Assessed Comments Unknown Sex and Gender Information Value Date Recorded Sex Assigned at Not on file Legal Sex Female 7:30 PM CDT Gender Identity Not on file Sexual Orientation Not on file documented as of this encounter Miscellaneous Notes * Cerner Conversion Note - Jessie Yuen MD - 08/25/2020 5:05 AM OPTOMETRIC TECHNICIAN Patient: SKYLER MONTOYA Age: 79 years [...] 06/13/2020 8:52 EVA LAWS RN PCI w/ [place] stent to D1 Coronary artery bypass graft ([id number]) in 1992 at 52 Years. femur repair. Appendectomy ([id number]). uterine suspension. Hysterectomy ([id number]). back surgury. Cholecystectomy ([id number]). Hip replacement ([id number]). cataract surgury. . Family history: Cardiomyopathy Child [...] EST Height Source Stated Height Entry Format Posey Height/Length, UZBEK (ft) 5 ft Height/Length UZBEK 3 Inch CLINICALHEIGHT 160.02 cm [place] Body Weight 52.02 kg Weight Source, ED Critical estimated dosing weight Weight Entry Format Posey Weight Haitian lb 152 lb CLINICALWEIGHT 69.09 kg Body [...] Stain: Ordered ED Fall Risk Documented: ED camp dining room attendant: Normal Saline 1,000 mL: 75 mL/Hr, IntraVENous [...] Application, Topical, TID, 22 Gram, 0 Refill(s) [place] 7.5 mg-325 mg oral tablet: 1 [...] % 32.7 % Lymph # 1.98 x10(3)/uL [place] % 10.2 % HI [place] # 0.62 K/uL [place] % 0.0 % [...] on filedocumented in this encounter Care Teams Pt Skilled Relationship Specialty Start Date End Date Jay Howell MD [address] [place] [phone] PCP - General Emergency Medicine 11/12/23 documented as of this encounter
--- OUTSIDE RECORDS SUMMARY | 2025-08-07 08:39 | XMS_ITS | Encounter Summary ---
Author Organization [employer] ([place], [place], [place], [place]) Address [address] [place] [address] Care Team Providers Care Technical Producer Name Role Phone Jay Howell MD Primary Care Provider [phone] Encounter Details Date Type Department Care Team (Late st Contact Info) Description 03/16/2021 Transcribed Document [facility] [place] [facility] [place] [address] ProviderJessie MD [address] [place] [phone] Social History Tobacco Use Types Packs/Day Years [...] of the form. Electronically signed by Sivan [facility] Conversion Pest Controller Cerner at 02/06/2023 12:48 PM CDT documented in this encounter Plan of Treatment Not on file documented as of this encounter Visit Diagnoses Not on filedocumented in this encounter Care Teams Technical Producer Relationship Specialty Start Date End Date Jay Howell MD [address] [place] [phone] PCP - General Emergency Medicine 11/12/23 documented as of this encounter
--- OUTSIDE RECORDS SUMMARY | 2025-08-07 08:39 | XMS_ITS | Encounter Summary ---
Author Organization [employer] ([place], [place], [place], [place]) Address [address] [place] [address] Care Team Providers Care Motorized Squad Captain Name Role Phone Jay Howell MD Primary Care Provider [phone] Encounter Details Date Type Department Care Team (Late st Contact Info) Description 08/25/2020 Transcribed Document [facility] [place] [address] [place] [address] ProviderJessie MD [address] [place] [address] Social History Tobacco Use Types Packs/Day Years Used Date Smoking Tobacco: Never Assessed Comments Unknown Sex and Gender Information Value Date Recorded Sex Assigned at Not on file Legal Sex Female 7:30 PM CDT Gender Identity Not on file Sexual Orientation Not on file documented as of this encounter Miscellaneous Notes * Cerner Conversion Note - Jessie Yuen MD - 08/25/2020 7:11 AM BRIDGE SAW OPERATOR Pain Assessment Entered On: 08/26/2020 1:56 EST [...] form. Electronically signed by Gayle Finnegan Conversion Composition Stone Applicator Cerner at 02/06/2023 12:48 PM CDT documented in this encounter Plan of Treatment Not on file documented as of this encounter Visit Diagnoses Not on filedocumented in this encounter Care Teams Motorized Squad Captain Relationship Specialty Start Date End Date Jay Howell MD [address] [place] [phone] PCP - General Emergency Medicine 11/12/23 documented as of this encounter
--- OUTSIDE RECORDS SUMMARY | 2025-08-07 08:39 | XMS_ITS | Encounter Summary ---
Author Organization [employer] ([place], [place], [place], [place]) Address [address] [place] [address] Care Team Providers Care Supervisor Forming Department Name Role Phone Jay Howell MD Primary Care Provider [phone] Encounter Details Date Type Department Care Team (Late st Contact Info) Description 03/17/2021 Transcribed Document [facility] [place] [facility] [place] [address] ProviderJessie MD [address] [place] [phone] Social History Tobacco Use Types Packs/Day Years [...] 03/17/2021 14:49 EDT Electronically signed by Sivan [facility] Conversion Technical Sales Support Manager Cerner at 02/04/2023 2:21 PM CDT documented in this encounter Plan of Treatment Not on file documented as of this encounter Visit Diagnoses Not on filedocumented in this encounter Care Teams Supervisor Forming Department Relationship Specialty Start Date End Date Jay Howell MD [address] [place] [phone] PCP - General Emergency Medicine 11/12/23 documented as of this encounter
--- OUTSIDE RECORDS SUMMARY | 2025-08-07 08:39 | XMS_ITS | Encounter Summary ---
Author Organization [employer] ([place], [place], [place], [place]) Address [address] [place] [address] Care Team Providers Care Foreign Exchange Trader Name Role Phone Jay Howell MD Primary Care Provider [phone] Encounter Details Date Type Department Care Team (Late st Contact Info) Description 08/25/2020 Transcribed Document [facility] [place] Medicine [address] [place] [address] ProviderJessie MD [address] [place] [address] Social History Tobacco Use Types Packs/Day Years Used Date Smoking Tobacco: Never Assessed Comments Unknown Sex and Gender Information Value Date Recorded Sex Assigned at Not on file Legal Sex Female 7:30 PM CDT Gender Identity Not on file Sexual Orientation Not on file documented as of this encounter Miscellaneous Notes * Cerner Conversion Note - Jessie ProviderMD - 08/25/2020 4:33 AM DATA MANAGER ED Triage Entered On: 08/25/2020 4:45 EST [...] 3 - Urgent Tracking Group : [facility] ED Deisi Vasquez RN - 08/25/2020 [...] 04:45:44 EST) Problems(Active) Apnea, sleep (SNOMED CT :843452939 ) Name of Problem: Apnea, sleep ; Recorder: JUAN LUIS GIL RN; Confirmation: Confirmed ; Classification: Medical ; Code: 104440775 ; Contributor System: PowerChart ; Last Updated: 11/12/2014 10:12 EST ; Life Cycle Date: 11/12/2014 ; Life Cycle Status: Active ; Vocabulary: SNOMED CT Arthritis (SNOMED CT :6180273 ) Name of Problem: Arthritis ; Recorder: EKNYON CHAMBERS RN; Confirmation: Confirmed ; Classification: Medical ; Code: 2351599 ; Contributor System: PowerChart ; Last Updated: 04/10/2016 8:04 EDT ; Life Cycle Date: 08/13/2013 ; Life Cycle Status: Active ; Vocabulary: SNOMED CT Atrial fibrillation with RVR (SNOMED CT :5600763188 ) Name of Problem: Atrial fibrillation with RVR ; Recorder: SANG RICO APRN; Confirmation: Confirmed ; Classification: Medical ; Code: 7512730752 ; Contributor System: PowerChart ; Last Updated: 04/10/2016 8:05 EDT ; Life Cycle Date: 04/10/2016 ; Life Cycle Status: Active ; Responsible Provider: SANG RICO APRN; Vocabulary: SNOMED CT Blood clot (SNOMED CT :326958040 ) Name of Problem: Blood clot ; Recorder: KENYON CHAMBERS RN; Confirmation: Confirmed ; Classification: Patient Stated ; Code: 859888548 ; Contributor System: PowerChart ; Last Updated: [...] Vocabulary: Patient Care Chest pain (SNOMED CT :10502707 ) Name of Problem: Chest pain ; Recorder: SANG RICO APRN; Confirmation: Complaint of ; Classification: Medical ; Code: 50484518 ; Contributor System: TrendzoChart ; Last Updated: 04/10/2016 8:05 EDT ; Life Cycle Status: Active ; Responsible Provider: SANG RICO APRN; Vocabulary: SNOMED CT Chronic anticoagulation (SNOMED CT :925794910 ) Name of Problem: Chronic anticoagulation ; Recorder: SANG RICO APRN; Confirmation: Confirmed ; Classification: Medical ; Code: 221924157 ; Contributor System: PowerChart ; Last Updated: 04/10/2016 8:05 EDT ; Life Cycle Date: 04/10/2016 ; Life Cycle Status: Active ; Responsible Provider: SANG RICO APRN; Vocabulary: SNOMED CT Clotting disorder (SNOMED CT :359591285 ) Name of Problem: Clotting disorder ; Recorder: KENYON CHAMBERS RN; Confirmation: Confirmed ; Classification: Patient Stated ; Code: 923060087 ; Contributor System: TrendzoChart ; Last Updated: 03/28/2014 19:29 EDT ; Life Cycle Date: 08/13/2013 ; Life Cycle Status: Active ; Vocabulary: SNOMED CT COPD (SNOMED CT :68197868 ) Name of Problem: COPD ; Recorder: KENYON CHAMBERS RN; Confirmation: Confirmed ; Classification: Medical ; Code: 76846781 ; Contributor System: TrendzoChart ; Last Updated: 04/10/2016 8:03 EDT ; Life Cycle Date: 08/13/2013 ; Life Cycle Status: Active ; Vocabulary: SNOMED CT Coronary artery disease (SNOMED CT :6772237383 ) Name of Problem: Coronary artery disease ; Recorder: KENYON CHAMBERS RN; Confirmation: Confirmed ; Classification: Medical ; Code: 6255044192 ; Contributor System: TrendzoChart ; Last Updated: 04/10/2016 8:03 EDT ; Life Cycle Date: 08/13/2013 ; Life Cycle Status: Active ; Vocabulary: SNOMED CT Diabetes mellitus (SNOMED CT :868257328 ) Name of Problem: Diabetes mellitus ; Recorder: KENYON CHAMBERS RN; Confirmation: Confirmed ; Classification: Medical ; Code: 167103672 ; Contributor System: TrendzoChart ; Last Updated: 04/10/2016 8:04 EDT ; Life Cycle Date: 08/13/2013 ; Life Cycle Status: Active ; Vocabulary: SNOMED CT Emphysema (SNOMED CT :349922223 ) Name of Problem: Emphysema ; Recorder: JUAN LUIS GIL RN; Confirmation: Confirmed ; Classification: Medical ; Code: 442336628 ; Contributor System: PowerChart ; Last Updated: 11/12/2014 10:11 EST ; Life Cycle Date: 11/12/2014 ; Life Cycle Status: Active ; Vocabulary: SNOMED CT GERD - Gastro-esophageal reflux disease (SNOMED CT :0489575702 ) Name of Problem: GERD - Gastro-esophageal reflux disease ; Recorder: KENYON CHAMBERS RN; Confirmation: Confirmed ; Classification: Medical ; Code: 8276253919 ; Contributor System: PowerChart ; Last Updated: [...] Patient Care High blood pressure (SNOMED CT :98554491 ) Name of Problem: High blood pressure ; Recorder: KENYON CHAMBERS RN; Confirmation: Confirmed ; Classification: Medical ; Code: 09840222 ; Contributor System: PowerChart ; Last Updated: 04/10/2016 8:03 EDT ; Life Cycle Date: 08/13/2013 ; Life Cycle Status: Active ; Vocabulary: SNOMED CT History of obstructive sleep apnea (IMO :04262711 ) Name of Problem: History of obstructive sleep apnea ; Recorder: SYSTEM, SYSTEM; Confirmation: Confirmed ; Classification: Medical ; Code: 85025537 ; Last Updated: 12/20/2018 12:01 EST ; Life Cycle Date: 12/20/2018 ; Life Cycle Status: Active ; Vocabulary: IMO Hx of pulmonary embolus (SNOMED CT :147525150 ) Name of Problem: Hx of pulmonary embolus ; Recorder: SANG RICO APRN; Confirmation: Confirmed ; Classification: Medical ; Code: 746102215 ; Contributor System: PowerChart ; Last Updated: 04/10/2016 8:05 EDT ; Life Cycle Date: 04/10/2016 ; Life Cycle Status: Active ; Responsible Provider: SANG RICO APRN; Vocabulary: SNOMED CT Hyperlipidemia (SNOMED CT :20429105 ) Name of Problem: Hyperlipidemia ; Recorder: KENYON CHAMBERS RN; Confirmation: Confirmed ; Classification: Medical ; Code: 22519479 ; Contributor System: PowerChart ; Last Updated: 04/10/2016 8:03 EDT ; Life Cycle Date: 08/13/2013 ; Life Cycle Status: Active ; Vocabulary: SNOMED CT Multiple renal cysts (SNOMED CT :073000301 ) Name of Problem: Multiple renal cysts ; Recorder: KENYON CHAMBERS RN; Confirmation: Confirmed ; Classification: Medical ; Code: 862440453 ; Contributor System: PowerChart ; Last Updated: 04/10/2016 8:04 EDT ; Life Cycle Date: 08/13/2013 ; Life Cycle Status: Active ; Vocabulary: SNOMED CT Stented coronary artery (SNOMED CT :6183336315 ) Name of Problem: Stented coronary artery ; Recorder: KENYON CHAMBERS RN; Confirmation: Confirmed ; Classification: Medical ; Code: 9710814342 ; Contributor System: PowerChart ; Last Updated: 04/10/2016 8:03 EDT ; Life Cycle Date: 08/13/2013 ; Life Cycle Status: Active ; Vocabulary: SNOMED CT UTI - Urinary tract infection (SNOMED CT :8634530978 ) Name of Problem: UTI - Urinary tract infection ; Recorder: KENYON CHAMBERS RN; Confirmation: Confirmed ; Classification: Medical ; Code: 8784812389 ; Contributor System: PowerChart ; Last Updated: 04/10/2016 8:04 EDT ; Life Cycle Date: 08/13/2013 ; Life Cycle Status: Active ; Vocabulary: SNOMED CT Diagnoses(Active) Medical screening exam Date: 08/25/2020 ; Diagnosis Type: Reason For Visit ; Confirmation: Complaint of ; Clinical Dx: Medical screening exam ; Classification: Medical ; Clinical Service: Non-Specified ; Code: PNED ; Probability: 0 ; Diagnosis Code: [id number] ED Height and Weight Height Source : Stated Height Entry Format : [place] Height, Feet : 5 ft(Converted to: 152 cm, 60 Inch) Height, Inches : 3 Inch(Converted to: 0 ft 3 Inch, 7.62 cm) Clinical Height : 160.02 cm Weight Source, ED : Critical estimated dosing weight Weight Entry Format : [place] Weight, Pounds : 152 lb Clinical Dosing Weight : 69.09 kg Body Surface Area (BSA) : 1.72 m2 Body Mass Index : 27 kg/m2 (HI) [place] Body Weight (IBW) : 52.02 kg Deisi Vasquez RN - 08/25/2020 4:41 EST Electronically signed by [facility], [facility] Conversion Siding Applicator Cerner at 02/04/2023 1:59 PM CDT documented in this encounter Plan of Treatment Not on file documented as of this encounter Visit Diagnoses Not on filedocumented in this encounter Care Teams Foreign Exchange Trader Relationship Specialty Start Date End Date Jay Howell MD [address] [place] [phone] PCP - General Emergency Medicine 11/12/23 documented as of this encounter
--- OUTSIDE RECORDS SUMMARY | 2025-08-07 08:39 | XMS_ITS | Encounter Summary ---
Author Organization [employer] ([place], [place], [place], [place]) Address [address] [place] [address] Care Team Providers Care Senior Wind Turbine Technician Name Role Phone Jay Howell MD Primary Care Provider [phone] Encounter Details Date Type Department Care Team (Late st Contact Info) Description 03/17/2021 Transcribed Document [facility] [place] Family Medicine [facility], [facility] [place] [address] ProviderJessie MD [address] [place] [phone] Social History Tobacco Use Types Packs/Day Years [...] filedocumented in this encounter Care Teams Senior Wind Turbine Technician Relationship Specialty Start Date End Date Jay Howell MD [address] [place] [phone] PCP - General Emergency Medicine 11/12/23 documented as of this encounter
--- OUTSIDE RECORDS SUMMARY | 2025-08-07 08:39 | XMS_ITS | Encounter Summary ---
Author Organization [employer] ([place], [place], [place], [place]) Address [address] [place] [address] Care Team Providers Care User Experience Designer Name Role Phone Jay Howell MD Primary Care Provider [phone] Encounter Details Date Type Department Care Team (Late st Contact Info) Description 08/25/2020 Transcribed Document [facility] [place] Family Medicine [address] [place] [address] ProviderJessie MD [address] [place] [address] Social History Tobacco Use Types Packs/Day Years Used Date Smoking Tobacco: Never Assessed Comments Unknown Sex and Gender Information Value Date Recorded Sex Assigned at Not on file Legal Sex Female 7:30 PM CDT Gender Identity Not on file Sexual Orientation Not on file documented as of this encounter Miscellaneous Notes * Cerner Conversion Note - Historical MD Alpa - 08/25/2020 6:23 AM SENIOR DATA MINING ANALYST Patient: SKYLER MNOTOYA Age: 79 years Sex: Female : 1940 Associated Diagnoses: None Author: BETH DAVALOS MD-INT Basic Information ADMISSION HISTORY AND PHYSICAL DATE OF ADMISSION: Admit Date 08/25/2020 04:33 PRIMARY CARE PROVIDER: Primary Care Provider TAAR CHEN (REF), -MED Chief Complaint 1. left [...] multiple stent placements. The patient presented to [facility] ER after recent fall with hematoma required [...] Application, Topical, TID, 22 Gram, 0 Refill(s) [place] 7.5 mg-325 mg oral tablet: 1 Tab, [...] Problem list: Medical Arthritis / SNOMED CT 0267572 / Confirmed Atrial fibrillation with RVR / SNOMED CT 1734380178 / Confirmed Cataract / Patient Care / Confirmed Chest pain / SNOMED CT 52083804 / Complaint of COPD / SNOMED CT 53932547 / Confirmed Coronary artery disease / SNOMED CT 8662654685 / Confirmed Diabetes mellitus / SNOMED CT 355130911 / Confirmed GERD - Gastro-esophageal reflux disease / SNOMED CT 7423739950 / Confirmed Glaucoma / Patient Care / Confirmed Chronic anticoagulation / SNOMED CT 695798011 / Confirmed Hx of pulmonary embolus / SNOMED CT 765643934 / Confirmed High blood pressure / SNOMED CT 02301914 / Confirmed History of obstructive sleep apnea / IMO 29974556 / Confirmed Hyperlipidemia / SNOMED CT 00445102 / Confirmed Multiple renal cysts / SNOMED CT 175637765 / Confirmed Emphysema / SNOMED CT 956373291 / Confirmed Apnea, sleep / SNOMED CT 757243212 / Confirmed Stented coronary artery / SNOMED CT 1989793921 / Confirmed UTI - Urinary tract infection / SNOMED CT 0644604268 / Confirmed, Active Problems (21) Apnea, sleep [...] History: Active Cataract Glaucoma Coronary artery disease (8010653979) Stented coronary artery (7173828165) High blood pressure (56846260) Hyperlipidemia (39586271) COPD (11325016) GERD - Gastro-esophageal reflux disease (0353910184) Multiple renal cysts (735745501) UTI - Urinary tract infection (7548605135) Arthritis (6785365) Diabetes mellitus (280915350) Emphysema (802036207) Apnea, sleep (816361089) Hx of pulmonary embolus (010485508) Chronic anticoagulation (159809644) Atrial fibrillation with RVR (9607475117) Family History: Cardiomyopathy Child Stroke Brother Heart attack Brother Sister Leukemia Child Cancer Father Mother Sister Coronary heart disease Child , Significant for hypertension Procedure history: Cardiac Stent in 2010 at 70 Years. Cardiac Stent on 01/30/2008 at 67 Years. Comments: 06/13/2020 8:52 THERESET - EVA WESLEY RN PCI w/ [place] stent to D1 Coronary artery bypass graft (760870283) in 1992 at 52 Years. femur repair. Appendectomy (902536394). uterine suspension. Hysterectomy (666351275). back surgury. Cholecystectomy (42833202). Hip replacement (6374101368). cataract surgury. Social History Social & Psychosocial [...] filedocumented in this encounter Care Teams User Experience Designer Relationship Specialty Start Date End Date Jay Howell MD [address] [place] [phone] PCP - General Emergency Medicine 11/12/23 documented as of this encounter
--- OUTSIDE RECORDS SUMMARY | 2025-08-07 08:39 | XMS_ITS | Encounter Summary ---
Author Organization [employer] ([place], [place], [place], [place]) Address [address] [place] [address] Care Team Providers Care Consumer Analyst Name Role Phone Jay Howell MD Primary Care Provider [phone] Encounter Details Date Type Department Care Team (Late st Contact Info) Description 03/17/[address] [facility] [place] [facility] [place] [address] ProviderJessie MD [address] [place] [id number] Social History Tobacco Use Types Packs/Day Years Used Date Smoking Tobacco: Never Assessed Comments Unknown Sex and Gender Information Value Date Recorded Sex Assigned at Not on file Legal Sex Female 7:30 PM CDT Gender Identity Not on file Sexual Orientation Not on file documented as of this encounter Miscellaneous Notes * Cerner Conversion Note - Historical ProviderMD - 03/17/2021 2:00 AM CDT Room Attendant Details Entered On: 03/17/2021 3:32 EDT Performed [...] - 03/17/2021 3:32 EDT Electronically signed by [facility], [facility] Conversion Process Mold Technician Cerner at 02/04/2023 2:22 PM CDT documented in this encounter Plan of Treatment Not on file documented as of this encounter Visit Diagnoses Not on filedocumented in this encounter Care Teams Consumer Analyst Relationship Specialty Start Date End Date Jay Howell MD [address] [place] [phone] PCP - General Emergency Medicine 11/12/23 documented as of this encounter
--- OUTSIDE RECORDS SUMMARY | 2025-08-07 08:39 | XMS_ITS | Encounter Summary ---
Author Organization [employer] ([place], [place], [place], [place]) Address [address] [place] [address] Care Team Providers Care Jersey Knitter Name Role Phone Jay Howell MD Primary Care Provider [phone] Encounter Details Date Type Department Care Team (Late st Contact Info) Description 03/17/2021 Transcribed Document [facility] Radiology [address] [place] [address] Samantha Guzamn MD [facility] [place] [address] Social History Tobacco Use Types Packs/Day Years [...] Vitamins oral tablet, 1 Tab, Oral, Daily [place] 7.5 mg-325 mg oral tablet, 1 Tab, [...] Lymph # 1.52 x10(3)/uL 03/16/2021 11:38 EDT [place] % 5.1 % 03/16/2021 11:38 EDT [place] # 0.50 K/uL 03/16/2021 11:38 EDT Eos [...] Appearance CLEAR2 03/16/2021 14:09 EDT Urine Specific [place] 1.015 03/17/2021 04:10 EDT Urine Specific [place] 1.014 03/16/2021 14:09 EDT Urine pH Dipstick [...] [1] History and Physical; MARIA ELENA DAVALOS [facility] 03/16/2021 17:39 EDT [2] CR Wrist Min 3 Vws RT; Roni Guerra, Manager Estate 03/16/2021 12:13 EDT documented in this encounter Plan of Treatment Not on file documented as of this encounter Visit Diagnoses Not on filedocumented in this encounter Care Teams Jersey Knitter Relationship Specialty Start Date End Date Jay Howell MD [address] [place] [phone] PCP - General Emergency Medicine 11/12/23 documented as of this encounter
--- OUTSIDE RECORDS SUMMARY | 2025-08-07 08:39 | XMS_ITS | Encounter Summary ---
Author Organization [employer] ([place], [place], [place], [place]) Address [address] [place] [address] Care Team Providers Care Regasification Plant Operator Name Role Phone Jay Howell MD Primary Care Provider [phone] Encounter Details Date Type Department Care Team (Late st Contact Info) Description 03/17/2021 Transcribed Document [facility] [place] Family Medicine [address] [place] [address] ProviderJessie MD [address] [place] [address] Social History Tobacco Use Types Packs/Day Years [...] On: 03/17/2021 9:00 EDT by TASHI LIND [facility] Phone Call for Consults Consult, Additional Information : notified by physician TASHI LIND, [facility] - 03/18/2021 8:31 EDT documented in this encounter Plan of Treatment Not on file documented as of this encounter Visit Diagnoses Not on filedocumented in this encounter Care Teams Regasification Plant Operator Relationship Specialty Start Date End Date Jay Howell MD [address] [place] [phone] PCP - General Emergency Medicine 11/12/23 documented as of this encounter
--- OUTSIDE RECORDS SUMMARY | 2025-08-07 08:39 | XMS_ITS | Encounter Summary ---
Author Organization [employer] ([place], [place], [place], [place]) Address [address] [place] [address] Care Team Providers Care General Expeditor Name Role Phone Jay Howell MD Primary Care Provider [phone] Encounter Details Date Type Department Care Team (Late st Contact Info) Description 08/25/2020 Transcribed Document [facility] [place] Family Medicine [address] [place] [address] ProviderJessie MD [address] [place] [address] Social History Tobacco Use Types Packs/Day Years Used Date Smoking Tobacco: Never Assessed Comments Unknown Sex and Gender Information Value Date Recorded Sex Assigned at Not on file Legal Sex Female 7:30 PM CDT Gender Identity Not on file Sexual Orientation Not on file documented as of this encounter Miscellaneous Notes * Cerner Conversion Note - Jessie Yuen MD - 08/25/2020 5:02 AM CAUL PULLER Pain Assessment Entered On: 08/25/2020 5:48 EST [...] filedocumented in this encounter Care Teams General Expeditor Relationship Specialty Start Date End Date Jay Howell MD [address] [place] [phone] PCP - General Emergency Medicine 11/12/23 documented as of this encounter
--- OUTSIDE RECORDS SUMMARY | 2025-08-07 08:39 | XMS_ITS | Encounter Summary ---
Author Organization [employer] ([place], [place], [place], [place]) Address [address] [place] [address] Care Team Providers Care Marble Polisher Name Role Phone Jay Howell MD Primary Care Provider [phone] Encounter Details Date Type Department Care Team (Late st Contact Info) Description 03/16/2021 Transcribed Document [facility] [place] Family Medicine [address] [place] [address] ProviderJessie MD [address] [place] [phone] Social History Tobacco Use Types Packs/Day Years [...] ALLERGIES: Macrobid and morphine. HOME MEDICATIONS: 1. [place] as needed. 2. Xanax as needed. 3. [...] Chart was reviewed. Time spent, 60 minutes. /[id number] Yasser Zohary, MD YZ/AQ / YGonzalo / MODL CC: Dr. Avtar Moeller Electronically signed by [facility], [facility] Conversion Business Analysis Specialist Cerner at 02/04/2023 2:22 PM CDT documented in this encounter Plan of Treatment Not on file documented as of this encounter Visit Diagnoses Not on filedocumented in this encounter Care Teams Marble Polisher Relationship Specialty Start Date End Date Jay Howell MD [address] [place] [phone] PCP - General Emergency Medicine 11/12/23 documented as of this encounter
--- OUTSIDE RECORDS SUMMARY | 2025-08-07 08:40 | XMS_ITS | Encounter Summary ---
Author Organization [employer] ([place], [place], [place], [place]) Address [address] [place] [address] Care Team Providers Care It Applications Manager Name Role Phone Jay Howell MD Primary Care Provider [phone] Encounter Details Date Type Department Care Team (Late st Contact Info) Description 03/17/2021 Transcribed Document [facility] [place] [facility] [place] [address] ProviderJessie MD [address] [place] [phone] Social History Tobacco Use Types Packs/Day Years [...] filedocumented in this encounter Care Teams It Applications Manager Relationship Specialty Start Date End Date Jay Howell MD [address] [place] [phone] PCP - General Emergency Medicine 11/12/23 documented as of this encounter
--- OUTSIDE RECORDS SUMMARY | 2025-08-07 08:40 | XMS_ITS | Encounter Summary ---
Author Organization [employer] ([place], [place], [place], [place]) Address [address] [place] [address] Care Team Providers Care Staff Submarine Warfare Officer Name Role Phone Jay Howell MD Primary Care Provider [phone] Encounter Details Date Type Department Care Team (Late st Contact Info) Description 08/25/2020 Transcribed Document [facility] [place] Family Medicine [address] [place] [address] ProviderJessie MD [address] [place] [address] Social History Tobacco Use Types Packs/Day Years Used Date Smoking Tobacco: Never Assessed Comments Unknown Sex and Gender Information Value Date Recorded Sex Assigned at Not on file Legal Sex Female 7:30 PM CDT Gender Identity Not on file Sexual Orientation Not on file documented as of this encounter Miscellaneous Notes * Cerner Conversion Note - Historical ProviderMD - 08/25/2020 6:14 PM FAMILY DAY CARE PROVIDER Admission History, Adult Entered On: 08/25/2020 18:21 [...] Ambulatory Legal Guardian : Spouse Support Person/Patient Product Marketing Intern : Yes Support Person/Pt Rep Name : Willard Contact Password : Marvin Support Person/Pt Rep Contact Information : [phone] Want Family/Rep/Phys Notified of Admit : No [...] Obtained From : Patient Primary Language : Bahraini Preferred Communication Mode : Verbal Communication Barrier : None Asphalt Layer Needed : No ROMEO PADRON RN - 08/25/2020 18:14 EST Fall Risk Scales ABCs Fall Injury Risk Identification : Age, Bones, Coagulation ABC Fall Injury Risk : Moderate to high injury risk THOMAS Hx Falls Immediate/Within 3 Months : Yes Thomas Secondary Diagnosis : Yes THOMAS Use of Ambulatory Aid : None HTOMAS IV Therapy or IV Access : No Thomas Gait/Transferring : Weak Thomas Mental Status : Oriented to own ability Thomas Fall Risk Score : 50 THOMAS Fall Scale Risk Level : 46 or > High Risk [place] Fall Interventions : Adequate lighting, Assistive devices [...] Source : Stated Height Entry Format : [place] Height, Feet : 5 ft(Converted to: 152 cm, 60 Inch) Height, Inches : 3 Inch(Converted to: 0 ft 3 Inch, 7.62 cm) Clinical Height : 160.02 cm Weight Source : Bed scale Weight Entry Format : [place] Clinical Dosing Weight : 69.09 kg Weight, Pounds : 152 lb Body Surface Area (BSA) : 1.72 m2 Body Mass Index : 27 kg/m2 (HI) [place] Body Weight : 52 kg ROMEO PADRON [...] ROMEO PADRON RN - 08/25/2020 18:14 EST [place] Suicide Severity Rating Scale (C-SSRS) CSSRS Past [...] 08/25/2020 18:14 EST Electronically signed by Sivan [facility] Conversion Side Puller Cerner at 02/04/2023 2:14 PM CDT documented in this encounter Plan of Treatment Not on file documented as of this encounter Visit Diagnoses Not on filedocumented in this encounter Care Teams Staff Submarine Warfare Officer Relationship Specialty Start Date End Date Jay Howell MD [address] [place] [phone] PCP - General Emergency Medicine 11/12/23 documented as of this encounter
--- OUTSIDE RECORDS SUMMARY | 2025-08-07 08:40 | XMS_ITS | Encounter Summary ---
Author Organization [employer] ([place], [place], [place], [place]) Address [address] [place] [address] Care Team Providers Care Medical Receptionist Biller Name Role Phone Jay Howell MD Primary Care Provider [phone] Encounter Details Date Type Department Care Team (Late st Contact Info) Description 03/17/2021 Transcribed Document [facility] [place] [facility] [place] [address] ProviderJessie MD [address] [place], [place] [id number] Social History Tobacco Use Types Packs/Day Years [...] the form. Electronically signed by Sivan, [facility] Conversion Human Factors Scientist Cerner at 02/04/2023 2:00 PM CDT documented in this encounter Plan of Treatment Not on file documented as of this encounter Visit Diagnoses Not on filedocumented in this encounter Care Teams Medical Receptionist Biller Relationship Specialty Start Date End Date Jay Howell MD [address] [place] [phone] PCP - General Emergency Medicine 11/12/23 documented as of this encounter
--- OUTSIDE RECORDS SUMMARY | 2025-08-07 08:40 | XMS_ITS | Encounter Summary ---
Author Organization [employer] ([place], [place], [place]) Address [address] [place] [address] Care Team Providers Care Billing Services Manager Name Role Phone Jay Howell MD Primary Care Provider [phone] Encounter Details Date Type Department Care Team (Late st Contact Info) Description 03/18/2021 Transcribed Document [facility] Cardiology [address] [place], [place] [phone] Jorje Bení[place] [address] [place] [address] [address] [place] [address] Social History Tobacco Use Types Packs/Day Years [...] None Author: JORJE BENÍTEZ MD-CAR Basic Information Stratigrapher: Dr. Adry Dumas Subjective NAD Health Status [...] Vitamins oral tablet 1 Tab, Oral, Daily Vowin[place]el 7.5 mg-325 mg oral tablet 1 Tab, [...] (Current Encounter/Past 24 Hours) ProBNP 576 pg/mL RI 03/17/2021 04:45 Radiology Results (Last 48 hours) [id number] -- 03/17/2021 13:59 CR Hip Uni Comp [...] on filedocumented in this encounter Care Teams Billing Services Manager Relationship Specialty Start Date End Date Jay Howell MD [address] [place] [phone] PCP - General Emergency Medicine 11/12/23 documented as of this encounter
--- OUTSIDE RECORDS SUMMARY | 2025-08-07 08:40 | XMS_ITS | Encounter Summary ---
Author Organization [employer] ([place], [place], [place], [place]) Address [address] [place] [address] Care Team Providers Care Inventory Management Specialist Name Role Phone Jay Howell MD Primary Care Provider [phone] Encounter Details Date Type Department Care Team (Late st Contact Info) Description 08/25/2020 Transcribed Document [facility] [place] Family Medicine [address] [place] [address] ProviderJessie MD [address] [place] [address] Social History Tobacco Use Types Packs/Day Years Used Date Smoking Tobacco: Never Assessed Comments Unknown Sex and Gender Information Value Date Recorded Sex Assigned at Not on file Legal Sex Female 7:30 PM CDT Gender Identity Not on file Sexual Orientation Not on file documented as of this encounter Miscellaneous Notes * Cerner Conversion Note - Jessie Yuen MD - 08/25/2020 7:28 AM BICYCLE ASSEMBLER WOCN Inpatient Documentation Entered On: 08/25/2020 15:46 [...] 08/25/2020 15:46 EST Electronically signed by Sivan, [facility] Conversion Oracle Hyperion Consultant Cerner at 02/04/2023 2:08 PM CDT documented in this encounter Plan of Treatment Not on file documented as of this encounter Visit Diagnoses Not on filedocumented in this encounter Care Teams Inventory Management Specialist Relationship Specialty Start Date End Date Jay Howell MD [address] [place] [phone] PCP - General Emergency Medicine 11/12/23 documented as of this encounter
--- OUTSIDE RECORDS SUMMARY | 2025-08-07 08:40 | XMS_ITS | Encounter Summary ---
Author Organization [employer] ([place], [place], [place], [place]) Address [address] [place] [address] Care Team Providers Care Regional Sales Coordinator Name Role Phone Jay Howell MD Primary Care Provider [phone] Encounter Details Date Type Department Care Team (Late st Contact Info) Description 08/25/2020 Transcribed Document [facility] [place] [address] [place] [address] ProviderJessie MD [address] [place] [address] Social History Tobacco Use Types Packs/Day Years Used Date Smoking Tobacco: Never Assessed Comments Unknown Sex and Gender Information Value Date Recorded Sex Assigned at Not on file Legal Sex Female 7:30 PM CDT Gender Identity Not on file Sexual Orientation Not on file documented as of this encounter Miscellaneous Notes * Cerner Conversion Note - Jessie ProviderMD - 08/25/2020 5:06 PM PORTFOLIO ACCOUNTANT Meds to Bed Enrollment Entered On: 08/26/2020 [...] filedocumented in this encounter Care Teams Regional Sales Coordinator Relationship Specialty Start Date End Date Jay Howell MD [address] [place] [phone] PCP - General Emergency Medicine 11/12/23 documented as of this encounter
--- OUTSIDE RECORDS SUMMARY | 2025-08-07 08:40 | XMS_ITS | Encounter Summary ---
Author Organization [employer] ([place], [place], [place], [place]) Address [address] [place] [address] Care Team Providers Care Cashier And Salesperson Name Role Phone Jay Howell MD Primary Care Provider [phone] Encounter Details Date Type Department Care Team (Late st Contact Info) Description 08/25/2020 Transcribed Document [facility] [place] Family Medicine [address] [place] [address] ProviderJessie MD [address] [place] [address] Social History Tobacco Use Types Packs/Day Years Used Date Smoking Tobacco: Never Assessed Comments Unknown Sex and Gender Information Value Date Recorded Sex Assigned at Not on file Legal Sex Female 7:30 PM CDT Gender Identity Not on file Sexual Orientation Not on file documented as of this encounter Miscellaneous Notes * Cerner Conversion Note - Jessie Yuen MD - 08/25/2020 7:20 AM PAINTER RAILROAD CAR Patient: SKYLER MONTOYA Age: 79 years Sex: [...] Time Spent with Patient: [16 ] minutes Electronically signed by Gayle Finnegan Conversion Metal Fitters And Machinists Cerner at 02/04/2023 2:22 PM CDT documented in this encounter Plan of Treatment Not on file documented as of this encounter Visit Diagnoses Not on filedocumented in this encounter Care Teams Cashier And Salesperson Relationship Specialty Start Date End Date Jay Howell MD [address] [place] [phone] PCP - General Emergency Medicine 11/12/23 documented as of this encounter
--- OUTSIDE RECORDS SUMMARY | 2025-08-07 08:40 | XMS_ITS | Encounter Summary ---
Author Organization [employer] ([place], [place], [place], [place]) Address [address] [place] [address] Care Team Providers Care Project Hire Name Role Phone Jay Howell MD Primary Care Provider [phone] Encounter Details Date Type Department Care Team (Late st Contact Info) Description 08/25/2020 Transcribed Document [facility] [place] Family Medicine [address] [place] [address] ProviderJessie MD [address] [place] [address] Social History Tobacco Use Types Packs/Day Years Used Date Smoking Tobacco: Never Assessed Comments Unknown Sex and Gender Information Value Date Recorded Sex Assigned at Not on file Legal Sex Female 7:30 PM CDT Gender Identity Not on file Sexual Orientation Not on file documented as of this encounter Miscellaneous Notes * Cerner Conversion Note - Historical ProviderMD - 08/25/2020 4:33 AM MEDICAL SCIENTIST [place] Violence Assessment Entered On: 08/25/2020 5:10 EST Performed On: 08/25/2020 5:10 EST by Yajaira Magallon Rn Broset Violence Assessment Broset Violence Checklist of Symptoms : None Broset Violence Symptoms Subtotal : 0 Broset Violence Symptoms Indicator : Low risk (0) Yajaira Magallon Rn - 08/25/2020 5:10 EST Electronically signed by Sivan [facility] Conversion Farmer General Cerner at 02/04/2023 2:10 PM CDT documented in this encounter Plan of Treatment Not on file documented as of this encounter Visit Diagnoses Not on filedocumented in this encounter Care Teams Project Hire Relationship Specialty Start Date End Date Jay Howell MD [address] [place] [phone] PCP - General Emergency Medicine 11/12/23 documented as of this encounter
--- OUTSIDE RECORDS SUMMARY | 2025-08-07 08:40 | XMS_ITS | Encounter Summary ---
Author Organization [employer] ([place], [place], [place], [place]) Address [address] [place] [address] Care Team Providers Care Insurance Verifier Name Role Phone Jay Howell MD Primary Care Provider [phone] Encounter Details Date Type Department Care Team (Late st Contact Info) Description 03/17/2021 Transcribed Document [facility] Family Medicine [address] [place] [address] ProviderJessie MD [address] [place] [address] Social History Tobacco Use Types Packs/Day Years [...] filedocumented in this encounter Care Teams Insurance Verifier Relationship Specialty Start Date End Date Jay Howell MD [address] [place] [phone] PCP - General Emergency Medicine 11/12/23 documented as of this encounter
--- OUTSIDE RECORDS SUMMARY | 2025-08-07 08:40 | XMS_ITS | Encounter Summary ---
Author Organization [employer] ([place], [place], [place], [place]) Address [address] [place] [address] Care Team Providers Care Moccasin Sewer Name Role Phone Jay Howell MD Primary Care Provider [phone] Encounter Details Date Type Department Care Team (Late st Contact Info) Description 03/17/2021 Transcribed Document [facility] [place] Family Medicine [facility] [place] [address] ProviderJessie MD [address] [place] [address] Social History Tobacco Use Types Packs/Day Years [...] 03/17/2021 10:01 EDT by Krystina Giang V Clinical Registered Nurse Felipe Initial Assessment I Legal Guardian : No Krystina Giang V Clinical Registered Nurse Felipe - 03/17/2021 14:24 EDT Previously Documented Living Environment : No qualifying data available. Living Situation : Home Patient Lives With : Spouse Employment/Vocation : retired Emergency Contact #1 : Leonardo Emergency Contact #1 Emergency Contact #1 Relationship : Son Emergency Contact #2 : Christian Emergency Contact #2 Emergency Contact #2 Relationship : Son Rahta Social Kayla Khoury [facility] [place] - 03/17/2021 10:01 EDT Enter Doctors Name : Krystina Welsh Social Worker [facility] 03/17/2021 14:24 EDT Does Patient have PCP Listed? : Yes Medical Durable Power of Thread Separator Name : No Krystina Giang Social Worker [facility] [place] - 03/17/2021 10:01 EDT Initial Assessment II Sensory and Motor Deficits : Weakness Krystina Giang Social Worker [facility] 03/17/2021 10:01 EDT Current Home Treatments and Equipment : Bedside commode, CPAP, Shower chair, Walker, Wheelchair Krystina Giang Social Worker [facility] 03/17/2021 14:24 EDT Discharge Needs I Anticipated Discharge Date : 03/19/2021 EDT Anticipated Discharge To, CM : Home with home health Krystina Giang Social Worker [facility] - 03/17/2021 14:24 EDT Current Home Treatment/Equipment : Current Home Treatment/Equipment No qualifying data available. Documentation Status Complete : Yes Krystina Giang Social Worker [facility] 03/17/2021 10:01 EDT Discharge Needs II Professional Skilled Services : Professional Skilled Services No qualifying data available. Needs Assistance with Transportation : No Discharge Options Discussed with Patient : Discharge transportation, DME, Home Health, Short term rehabilitation Krystina Giang Social Worker [facility] 03/17/2021 10:01 EDT Narrative Note Narrative Note : HD#1, ELOS-not reported, RRS-Moderate, Boost- 80 yo female admitted for syncopal episide. She fell and hit her head and suffered a right wrist fracture. Cardiology, Neurology, Orthopedics consults noted. She lives with her spouse. Independent with ADLs prior to admission. DME-walker, shower chair, BSC, cpap thru [facility] in [place]. No home 02. HHS in the past out of [place]. Denies rehab stays. DCP-Home with spouse. Possible HHPT/OT CM to follow Krystina Giang Social Worker [facility] - 03/17/2021 14:24 EDT documented in this encounter Plan of Treatment Not on file documented as of this encounter Visit Diagnoses Not on filedocumented in this encounter Care Teams Moccasin Sewer Relationship Specialty Start Date End Date Jay Howell MD [address] [place] [phone] PCP - General Emergency Medicine 11/12/23 documented as of this encounter
--- OUTSIDE RECORDS SUMMARY | 2025-08-07 08:40 | XMS_ITS | Encounter Summary ---
Author Organization [employer] ([place], [place], [place], [place]) Address [address] [place] [address] Care Team Providers Care Hand Spring Repairer Name Role Phone Jay Howell MD Primary Care Provider [phone] Encounter Details Date Type Department Care Team (Late st Contact Info) Description 03/18/2021 Transcribed Document [facility] [place] [address] [place] [address] ProviderJessie MD [address] [place] [address] Social History Tobacco Use Types Packs/Day Years [...] filedocumented in this encounter Care Teams Hand Spring Repairer Relationship Specialty Start Date End Date Jay Howell MD [address] [place] [phone] PCP - General Emergency Medicine 11/12/23 documented as of this encounter
--- OUTSIDE RECORDS SUMMARY | 2025-08-07 08:40 | XMS_ITS | Encounter Summary ---
Author Organization [employer] ([place], [place], [place], [place]) Address [address] [place] [address] Care Team Providers Care Metallurgical Engineering Technician Name Role Phone Jay Howell MD Primary Care Provider [phone] Encounter Details Date Type Department Care Team (Late st Contact Info) Description 08/25/2020 Transcribed Document [facility] [place] Family Medicine [facility] [place] [address] ProviderJessie MD [address] [place] [address] Social History Tobacco Use Types Packs/Day Years Used Date Smoking Tobacco: Never Assessed Comments Unknown Sex and Gender Information Value Date Recorded Sex Assigned at Not on file Legal Sex Female 7:30 PM CDT Gender Identity Not on file Sexual Orientation Not on file documented as of this encounter Miscellaneous Notes * Cerner Conversion Note - Historical ProviderMD - 08/25/2020 10:42 AM EINSTEIN BROS BAGELS ASSISTANT MANAGER Patient: SKYLER MONTOYA Age: 79 years Sex: Female : 1940 Associated Diagnoses: None Author: KAVITHA HIDALGO MD-INF ID CONSULT DICTATED Electronically signed by Gayle Finnegan Conversion Software Maintenance Engineer Cerner at 02/04/2023 2:09 PM CDT documented in this encounter Plan of Treatment Not on file documented as of this encounter Visit Diagnoses Not on filedocumented in this encounter Care Teams Metallurgical Engineering Technician Relationship Specialty Start Date End Date Jay Howell MD [address] [place] [phone] PCP - General Emergency Medicine 11/12/23 documented as of this encounter
--- OUTSIDE RECORDS SUMMARY | 2025-08-07 08:40 | XMS_ITS | Encounter Summary ---
Author Organization [employer] ([place], [place], [place], [place]) Address [address] [place] [address] Care Team Providers Care Seamless Tube Roller Name Role Phone Jay Howell MD Primary Care Provider [phone] Encounter Details Date Type Department Care Team (Late st Contact Info) Description 08/25/2020 Transcribed Document [facility] [place] Family Medicine [address] [place] [address] ProviderJessie MD [address] [place] [address] Social History Tobacco Use Types Packs/Day Years Used Date Smoking Tobacco: Never Assessed Comments Unknown Sex and Gender Information Value Date Recorded Sex Assigned at Not on file Legal Sex Female 7:30 PM CDT Gender Identity Not on file Sexual Orientation Not on file documented as of this encounter Miscellaneous Notes * Cerner Conversion Note - Jessie Yuen MD - 08/25/2020 9:27 AM OPERATIONS AND INTELLIGENCE ASSISTANT Patient: SKYLER MONTOYA Age: 79 years [...] changes. Rx will follow, [place] PharmD,BCPS,BCCCP #[phone] Electronically signed by Sivan, [facility] Conversion Recorder Helper Seismograph Cerner at 02/04/2023 2:13 PM CDT documented in this encounter Plan of Treatment Not on file documented as of this encounter Visit Diagnoses Not on filedocumented in this encounter Care Teams Seamless Tube Roller Relationship Specialty Start Date End Date Jay Howell MD [address] [place] [phone] PCP - General Emergency Medicine 11/12/23 documented as of this encounter
--- OUTSIDE RECORDS SUMMARY | 2025-08-07 08:40 | XMS_ITS | Encounter Summary ---
Author Organization [employer] ([place], [place], [place], [place]) Address [address] [place] [address] Care Team Providers Care Photo Optics Technician Name Role Phone Jay Howell MD Primary Care Provider [phone] Encounter Details Date Type Department Care Team (Late st Contact Info) Description 08/25/2020 Transcribed Document [facility] [place] [address] [place] [address] ProviderJessie MD [address] [place] [address] Social History Tobacco Use Types Packs/Day Years Used Date Smoking Tobacco: Never Assessed Comments Unknown Sex and Gender Information Value Date Recorded Sex Assigned at Not on file Legal Sex Female 7:30 PM CDT Gender Identity Not on file Sexual Orientation Not on file documented as of this encounter Miscellaneous Notes * Cerner Conversion Note - Historical ProviderMD - 08/25/2020 1:02 PM BABY STROLLER RENTAL CLERK Patient: SKYLER MONTOYA Age: 79 years [...] Dr. Avtar Moeller Electronically signed by Sivan, [facility] Conversion Finance Manager Cerner at 02/04/2023 2:06 PM CDT documented in this encounter Plan of Treatment Not on file documented as of this encounter Visit Diagnoses Not on filedocumented in this encounter Care Teams Photo Optics Technician Relationship Specialty Start Date End Date Jay Howell MD [address] [place] [phone] PCP - General Emergency Medicine 11/12/23 documented as of this encounter
--- OUTSIDE RECORDS SUMMARY | 2025-08-07 08:40 | XMS_ITS | Encounter Summary ---
Author Organization [employer] ([place], [place], [place], [place]) Address [address] [place] [address] Care Team Providers Care Financial Services Assistant Name Role Phone Jay Howell MD Primary Care Provider [phone] Encounter Details Date Type Department Care Team (Late st Contact Info) Description 03/18/2021 Transcribed Document [facility] [place] Family Medicine [address] [place] [address] ProviderJessie MD [address] [place] [phone] Social History Tobacco Use Types Packs/Day Years [...] 03/18/2021 15:01 EDT by Krystina Giang V, Auto Glass Installer Meat Cutting Block Repairer Care Management Progress Note Discharge Arrangements : [...] Multidisciplinary Rounds? : Yes Krystina Giang V Auto Glass Installer [facility] - 03/18/2021 15:01 EDT Narrative Progress Note [...] to follow dc plan Krystina Giang V Auto Glass Installer [facility] - 03/18/2021 15:01 EDT Electronically signed by Sivan [facility] Conversion Funeral Home Location Manager Cerner at 02/04/2023 1:55 PM CDT documented in this encounter Plan of Treatment Not on file documented as of this encounter Visit Diagnoses Not on filedocumented in this encounter Care Teams Financial Services Assistant Relationship Specialty Start Date End Date Jay Howell MD [address] [place] [phone] PCP - General Emergency Medicine 11/12/23 documented as of this encounter
--- OUTSIDE RECORDS SUMMARY | 2025-08-07 08:40 | XMS_ITS | Encounter Summary ---
Author Organization [employer] ([place], [place], [place], [place]) Address [address] [place] [address] Care Team Providers Care Toys And Games Hand Finisher Name Role Phone Jay Howell MD Primary Care Provider [phone] Encounter Details Date Type Department Care Team (Late st Contact Info) Description 03/17/2021 Transcribed Document [facility] [place] Family Medicine [address] [place] [address] ProviderJessie MD [address] [place] [address] Social History Tobacco Use Types Packs/Day Years [...] Insurance 1 Health Plan: MEDICARE Policy Number: [id number] Authorization Number: Insurance 2 Health Plan: AARP N Policy Number: [id number] Authorization Number: Insurance Primary Name : MEDICARE Policy Number: [id number] Authorized Service Begin Date-Primary : 03/16/2021 EDT Historical Authorization Comments-Primary : No Authorization Comments Found MARILYNN RAMÍREZ, RN-Utilization Review - 03/17/2021 12:48 EDT documented in this encounter Plan of Treatment Not on file documented as of this encounter Visit Diagnoses Not on filedocumented in this encounter Care Teams Toys And Games Hand Finisher Relationship Specialty Start Date End Date Jay Howell MD [address] [place] [phone] PCP - General Emergency Medicine 11/12/23 documented as of this encounter
--- OUTSIDE RECORDS SUMMARY | 2025-08-07 08:40 | XMS_ITS | Encounter Summary ---
Author Organization [employer] ([place], [place], [place], [place]) Address [address] [place] [address] Care Team Providers Care Supervisor Pipelines Name Role Phone Jay Howell MD Primary Care Provider [phone] Encounter Details Date Type Department Care Team (Late st Contact Info) Description 03/18/2021 Transcribed Document [facility] [place] Family Medicine [address] [place] [address] ProviderJessie MD [address] [place] [id number] Social History Tobacco Use Types Packs/Day Years [...] 03/18/2021 13:27 EDT Electronically signed by Sivan [facility] Conversion Construction Cost Estimator Cerner at 02/04/2023 2:02 PM CDT documented in this encounter Plan of Treatment Not on file documented as of this encounter Visit Diagnoses Not on filedocumented in this encounter Care Teams Supervisor Pipelines Relationship Specialty Start Date End Date Jay Howell MD [address] [place] [phone] PCP - General Emergency Medicine 11/12/23 documented as of this encounter
--- OUTSIDE RECORDS SUMMARY | 2025-08-07 08:40 | XMS_ITS | Encounter Summary ---
Author Organization [employer] ([place], [place], [place], [place]) Address [address] [place] [address] Care Team Providers Care Manager Style Name Role Phone Jay Howell MD Primary Care Provider [phone] Encounter Details Date Type Department Care Team (Late st Contact Info) Description 08/25/[address] [facility] [place] [address] [place] [address] ProviderJessie MD [address] [place] [address] Social History Tobacco Use Types Packs/Day Years Used Date Smoking Tobacco: Never Assessed Comments Unknown Sex and Gender Information Value Date Recorded Sex Assigned at Not on file Legal Sex Female 7:30 PM CDT Gender Identity Not on file Sexual Orientation Not on file documented as of this encounter Miscellaneous Notes * Cerner Conversion Note - Jessie ProviderMD - 08/25/2020 8:09 AM SECURITY ENGINEER ED Event Note Entered On: 08/25/2020 8:11 EST Performed On: 08/25/2020 8:09 EST by TRACIE ACUNA RN ED Event Note ED Event Date/Time : 08/25/2020 8:09 EST ED Event Location : Assigned room ED Description of Event : Pt awake and was given Zosyn IV per order. Pt has to have a bed change to Tele. RTACIE ACUNA RN - 08/25/2020 8:09 EST Electronically signed by Sivan [facility] Conversion Scuba Diving Instructor Cerner at 02/04/2023 2:06 PM CDT documented in this encounter Plan of Treatment Not on file documented as of this encounter Visit Diagnoses Not on filedocumented in this encounter Care Teams Manager Style Relationship Specialty Start Date End Date Jay Howell MD [address] [place] [phone] PCP - General Emergency Medicine 11/12/23 documented as of this encounter
--- OUTSIDE RECORDS SUMMARY | 2025-08-07 08:41 | XMS_ITS | Encounter Summary ---
Author Organization [employer] ([place], [place], [place], [place]) Address [address] [place] [address] Care Team Providers Care Telephone Installer Name Role Phone Jay Howell MD Primary Care Provider [phone] Encounter Details Date Type Department Care Team (Late st Contact Info) Description 03/19/2021 Transcribed Document [facility] [place] Family Medicine [address] [place] [address] ProviderJessie MD [address] [place] [address] Social History Tobacco Use Types Packs/Day Years [...] KENDRA ROJAS, PT - 03/19/2021 17:49 EDT Licensed Mental Health Counselor Goals Mobility/Bed Mobility LTG PT Grid Goal [...] 03/19/2021 16:05 EDT Electronically signed by Sivan [facility] Conversion Global Engineering Manager Cerner at 02/04/2023 1:59 PM CDT documented in this encounter Plan of Treatment Not on file documented as of this encounter Visit Diagnoses Not on filedocumented in this encounter Care Teams Telephone Installer Relationship Specialty Start Date End Date Jay Howell MD [address] [place] [phone] PCP - General Emergency Medicine 11/12/23 documented as of this encounter
--- OUTSIDE RECORDS SUMMARY | 2025-08-07 08:41 | XMS_ITS | Encounter Summary ---
Author Organization [employer] ([place], [place], [place], [place]) Address [address] [place] [address] Care Team Providers Care Camera Repairman Name Role Phone Jay Howell MD Primary Care Provider [phone] Encounter Details Date Type Department Care Team (Late st Contact Info) Description 08/26/2020 Transcribed Document [facility] [place] Family Medicine [address] [place] [address] ProviderJessie MD [address] [place], [place] [address] Social History Tobacco Use Types Packs/Day Years Used Date Smoking Tobacco: Never Assessed Comments Unknown Sex and Gender Information Value Date Recorded Sex Assigned at Not on file Legal Sex Female 7:30 PM CDT Gender Identity Not on file Sexual Orientation Not on file documented as of this encounter Miscellaneous Notes * Cerner Conversion Note - Historical ProviderMD - 08/26/2020 11:38 AM THEATRE PROFESSOR Event Note Entered On: 08/26/2020 11:38 EST Performed On: 08/26/2020 11:38 EST by CARLTON GUTIERREZ Event Note Event Date/Time : 08/26/2020 11:15 EST Event Location : [place] Event Details : Other: Description of Event : 1115: [facility] PT 25 INR 2.4 CARLTON GUTIERREZ - 08/26/2020 11:38 EST Electronically signed by Sivan [facility] Conversion Level Vial Sealer Cerner at 02/04/2023 2:15 PM CDT documented in this encounter Plan of Treatment Not on file documented as of this encounter Visit Diagnoses Not on filedocumented in this encounter Care Teams Camera Repairman Relationship Specialty Start Date End Date Jay Howell MD [address] [place] [phone] PCP - General Emergency Medicine 11/12/23 documented as of this encounter
--- OUTSIDE RECORDS SUMMARY | 2025-08-07 08:41 | XMS_ITS | Encounter Summary ---
Author Organization [employer] ([place], [place], [place], [place]) Address [address] [place] [address] Care Team Providers Care Smasher Hand Name Role Phone Jay Howell MD Primary Care Provider [phone] Encounter Details Date Type Department Care Team (Late st Contact Info) Description 08/26/2020 Transcribed Document [facility] [place] [address] [place] [address] ProviderJessie MD [address] [place] [address] Social History Tobacco Use Types Packs/Day Years Used Date Smoking Tobacco: Never Assessed Comments Unknown Sex and Gender Information Value Date Recorded Sex Assigned at Not on file Legal Sex Female 7:30 PM CDT Gender Identity Not on file Sexual Orientation Not on file documented as of this encounter Miscellaneous Notes * Cerner Conversion Note - Historical ProviderMD - 08/26/2020 10:39 AM FLAT FOLDER UM Authorization Entered On: 08/26/2020 10:39 EST Performed On: 08/26/2020 10:39 EST by MARILYNN RAMÍREZ, RN-Utilization Review Primary Insurance Authorization Authorization and Policy Numbers : Insurance 1 Health Plan: MEDICARE Policy Number: [id number] Authorization Number: Insurance 2 Health Plan: AARP N Policy Number: [id number] Authorization Number: Insurance Primary Name : MEDICARE Policy Number: [id number] Authorized Service Begin Date-Primary : 08/25/2020 EST Historical Authorization Comments-Primary : No Authorization Comments Found MARILYNN RAMÍREZ, RN-Utilization Review - 08/26/2020 10:39 EST Electronically signed by Sivan [facility] Conversion Courseware Developer Cerner at 02/04/2023 2:22 PM CDT documented in this encounter Plan of Treatment Not on file documented as of this encounter Visit Diagnoses Not on filedocumented in this encounter Care Teams Smasher Hand Relationship Specialty Start Date End Date Jay Howell MD [address] [place] [phone] PCP - General Emergency Medicine 11/12/23 documented as of this encounter
--- OUTSIDE RECORDS SUMMARY | 2025-08-07 08:41 | XMS_ITS | Encounter Summary ---
Author Organization [employer] ([place], [place], [place], [place]) Address [address] [place] [address] Care Team Providers Care Driving School Instructor Name Role Phone Jay Howell MD Primary Care Provider [phone] Encounter Details Date Type Department Care Team (Late st Contact Info) Description 03/19/2021 Transcribed Document [facility] [place] [facility] [place] [address] ProviderJessie MD [address] [place], [place] [address] Social History Tobacco Use Types Packs/Day Years [...] of the form. Electronically signed by Sivan, [facility] Conversion Track Hoe Operator Cerner at 02/04/2023 2:02 PM CDT documented in this encounter Plan of Treatment Not on file documented as of this encounter Visit Diagnoses Not on filedocumented in this encounter Care Teams Driving School Instructor Relationship Specialty Start Date End Date Jay Howell MD [address] [place] [phone] PCP - General Emergency Medicine 11/12/23 documented as of this encounter
--- OUTSIDE RECORDS SUMMARY | 2025-08-07 08:41 | XMS_ITS | Encounter Summary ---
Author Organization [employer] ([place], [place], [place], [place]) Address [address] [place] [address] Care Team Providers Care Retort Furnace Operator Name Role Phone Jay Howell MD Primary Care Provider [phone] Encounter Details Date Type Department Care Team (Late st Contact Info) Description 08/26/2020 Transcribed Document [facility] [place] Family [place] [address] [place] [address] ProviderJessie MD [address] [place] [address] Social History Tobacco Use Types Packs/Day Years Used Date Smoking Tobacco: Never Assessed Comments Unknown Sex and Gender Information Value Date Recorded Sex Assigned at Not on file Legal Sex Female 7:30 PM CDT Gender Identity Not on file Sexual Orientation Not on file documented as of this encounter Miscellaneous Notes * Cerner Conversion Note - Historical ProviderMD - 08/26/2020 9:06 AM VICE PRESIDENT OF MARKETING Patient: SKYLER MONTOYA Age: 79 years Sex: Female : 1940 Associated Diagnoses: None Author: Cheng Jennings, Mangle Feeder Cert 79yo female with Left lower extremity [...] PharmD/MPH Candidate Kell OlsonD Electronically signed by [facility], [facility] Conversion Kiln Repairer Cerner at 02/04/2023 2:17 PM CDT documented in this encounter Plan of Treatment Not on file documented as of this encounter Visit Diagnoses Not on filedocumented in this encounter Care Teams Retort Furnace Operator Relationship Specialty Start Date End Date Jay Howell MD [address] [place] [phone] PCP - General Emergency Medicine 11/12/23 documented as of this encounter
--- OUTSIDE RECORDS SUMMARY | 2025-08-07 08:41 | XMS_ITS | Encounter Summary ---
Author Organization [employer] ([place], [place], [place], [place]) Address [address] [place] [address] Care Team Providers Care Feed Elevator Worker Name Role Phone Jay Howell MD Primary Care Provider [phone] Encounter Details Date Type Department Care Team (Late st Contact Info) Description 08/26/2020 Transcribed Document [facility] [place] Family Medicine [address] [place] [address] ProviderJessie MD [address] [place], [place] [address] Social History Tobacco Use Types Packs/Day Years Used Date Smoking Tobacco: Never Assessed Comments Unknown Sex and Gender Information Value Date Recorded Sex Assigned at Not on file Legal Sex Female 7:30 PM CDT Gender Identity Not on file Sexual Orientation Not on file documented as of this encounter Miscellaneous Notes * Cerner Conversion Note - Historical ProviderMD - 08/26/2020 2:41 PM [employer] Event Note Entered On: 08/26/2020 14:42 EST [...] - 08/26/2020 18:03 EST Electronically signed by [facility], [facility] Conversion Racquet Maker Cerner at 02/04/2023 2:15 PM CDT documented in this encounter Plan of Treatment Not on file documented as of this encounter Visit Diagnoses Not on filedocumented in this encounter Care Teams Feed Elevator Worker Relationship Specialty Start Date End Date Jay Howell MD [address] [place] [phone] PCP - General Emergency Medicine 11/12/23 documented as of this encounter
--- OUTSIDE RECORDS SUMMARY | 2025-08-07 08:41 | XMS_ITS | Encounter Summary ---
Author Organization [employer] ([place], [place], [place], [place]) Address [address] [place] [address] Care Team Providers Care Flight Security Specialist Name Role Phone Jay Howell MD Primary Care Provider [phone] Encounter Details Date Type Department Care Team (Late st Contact Info) Description 08/26/2020 Transcribed Document [facility] [place] Family Medicine [address] [place] [address] ProviderJessie MD [address] [place] [address] Social History Tobacco Use Types Packs/Day Years Used Date Smoking Tobacco: Never Assessed Comments Unknown Sex and Gender Information Value Date Recorded Sex Assigned at Not on file Legal Sex Female 7:30 PM CDT Gender Identity Not on file Sexual Orientation Not on file documented as of this encounter Miscellaneous Notes * Cerner Conversion Note - Historical ProviderMD - 08/26/2020 6:06 PM BYPRODUCTS EXTRACTOR Spiritual Care Short Form Entered On: 08/26/2020 18:06 EST Performed On: 08/26/2020 18:06 EST by JEREMIAH HULL General Information, Spiritual Care Spiritual Care Referred by : Nurse Reason for Visit : Referral/Consult Moravian Preference : Christianity JEREMIAH HULL - 08/26/2020 18:06 EST documented in this encounter Plan of Treatment Not on file documented as of this encounter Visit Diagnoses Not on filedocumented in this encounter Care Teams Flight Security Specialist Relationship Specialty Start Date End Date Jay Howell MD [address] [place] [phone] PCP - General Emergency Medicine 11/12/23 documented as of this encounter
--- OUTSIDE RECORDS SUMMARY | 2025-08-07 08:41 | XMS_ITS | Encounter Summary ---
Author Organization [employer] ([place], [place], [place], [place]) Address [address] [place] [address] Care Team Providers Care Doctor Assistant Name Role Phone Jay Howell MD Primary Care Provider [phone] Encounter Details Date Type Department Care Team (Late st Contact Info) Description 03/19/2021 Transcribed Document [facility] [place] [facility] [place] [address] ProviderJessie MD [address] [place], [place] [address] Social History Tobacco Use Types Packs/Day Years [...] these instructions at home: Medicines ??? Take fshc-[id number] and prescription medicines only as told by [...] provider. Document Revised: 01/25/2020 Document Reviewed: 08/22/2019 [employer] Patient Education ? 2019 [employer] Orthopedics Cast or Splint Care, Adult [...] activities are safe for you. ??? Take xcbm-ler-ljcipll and prescription medicines only as told by [...] provider. Document Revised: 07/31/2018 Document Reviewed: 03/26/2017 [employer] Patient Education ? 2020 [employer]. documented in this encounter Plan of Treatment Not on file documented as of this encounter Visit Diagnoses Not on filedocumented in this encounter Care Teams Doctor Assistant Relationship Specialty Start Date End Date Jay Howell MD [address] [place] [phone] PCP - General Emergency Medicine 11/12/23 documented as of this encounter
--- OUTSIDE RECORDS SUMMARY | 2025-08-07 08:41 | XMS_ITS | Encounter Summary ---
Author Organization [employer] ([place], [place], [place], [place]) Address [address] [place] [address] Care Team Providers Care Aviation Operations Specialist Name Role Phone Jay Howell MD Primary Care Provider [phone] Encounter Details Date Type Department Care Team (Late st Contact Info) Description 08/26/2020 Transcribed Document [facility] [place] Family Medicine [address] [place] [address] ProviderJessie MD [address] [place], [place] [address] Social History Tobacco Use Types Packs/Day Years Used Date Smoking Tobacco: Never Assessed Comments Unknown Sex and Gender Information Value Date Recorded Sex Assigned at Not on file Legal Sex Female 7:30 PM CDT Gender Identity Not on file Sexual Orientation Not on file documented as of this encounter Miscellaneous Notes * Cerner Conversion Note - Historical ProviderMD - 08/26/2020 1:15 PM HACKSAW INSPECTOR [facility] Main OR Preop Summary Primary Physician: KAELA HEBERT MD Finalized Date/Time: 08/26/20 13:59:45 Pt. Name: SKYLER MONTOYA.O.B./Sex: 1940 Female Med Rec #: [id number] Physician: BETH DAVALOS MD-INT Financial #: [id number] Pt. Type: I Room/Bed: [facility]/ Admit/Disch: 08/25/20 05:53:00 - Institution: [facility] PreOp Case Times Entry 1 In Preop 08/26/20 10:52:00 Ready for Holding n/a Room Patient Ready for 08/26/20 11:30:00 Surgery Patient Out of Preop 08/26/20 12:57:00 Patient Out of n/a Holding Room Last Modified By: CARLTON GUTIERREZ 08/26/20 13:59:44 [facility] PreOp Case Times Audit 08/26/20 13:59:44 Campus Aide: BEATRISFEVJ Modifier: [email or web address] <+> 1 Patient Out of Preop 08/26/20 11:36:02 Campus Aide: BEATRISFEVJ Modifier: [email or web address] <+> 1 Patient Ready for Surgery Finalized By: CARLTON GUTIERREZ Document Signatures Signed By: CARLTON GUTIERREZ 08/26/20 13:59 Electronically signed by Sivan [facility] Conversion Director Of Vocational Training Cerner at 02/04/2023 2:16 PM CDT documented in this encounter Plan of Treatment Not on file documented as of this encounter Visit Diagnoses Not on filedocumented in this encounter Care Teams Aviation Operations Specialist Relationship Specialty Start Date End Date Jay Howell MD [address] [place] [phone] PCP - General Emergency Medicine 11/12/23 documented as of this encounter
--- OUTSIDE RECORDS SUMMARY | 2025-08-07 08:42 | XMS_ITS | Referral Summary ---
Author Organization [employer] ([place], [place], [place], [place]) Address [address] [place] [address] Care Team Providers Care Silk Worker Name Role Phone Jay Howell MD [...] Date Kennedy rded Speak language other than Samoan at home Not on file 10/30/2023 Want [...] on file Insurance MEDICARE PART A B [facility] [id number] Advance Directives For more information, please contact: [phone] * Full Code (Latest Code Status on File) Date Activated Date Inactivated Comments 11/25/2022 10:41 AM 11/26/2022 5:33 PM * Full Code Date Activated Date Inactivated Comments 11/25/2022 8:11 AM 11/25/2022 10:41 AM -Attempt Resu scitation if person has no pulse and is not breathing. -If no pulse or not breathing attempt CPR/CODE. -Call Rapid Response if patient is in distress. Care Teams Silk Worker Relationship Specialty Start Date End Date Jay Howell MD [address] [place] [phone] PCP - General Emergency Medicine 11/12/23
--- OUTSIDE RECORDS SUMMARY | 2025-08-07 08:42 | XMS_ITS | Encounter Summary ---
Author Organization [employer] ([place], [place], [place], [place]) Address [address] [place] [address] Care Team Providers Care Feller Operator Name Role Phone Jay Howell MD Primary Care Provider [phone] Encounter Details Date Type Department Care Team (Late st Contact Info) Description 08/26/2020 Transcribed Document [facility] [place] Family Medicine [address] [place] [address] ProviderJessie MD [address] [place] [address] Social History Tobacco Use Types Packs/Day Years Used Date Smoking Tobacco: Never Assessed Comments Unknown Sex and Gender Information Value Date Recorded Sex Assigned at Not on file Legal Sex Female 7:30 PM CDT Gender Identity Not on file Sexual Orientation Not on file documented as of this encounter Miscellaneous Notes * Cerner Conversion Note - Jessie Yuen MD - 08/26/2020 8:24 AM EMAIL PRODUCTION CONSULTANT Patient: SKYLER MONTOYA Age: 79 years [...] Level 8.4 mg/dL 08/26/2020 04:23 MICRO: ACC: [id number] ORDER: Culture Wound and Stain DATE: 08/25/2020 05:00 SOURCE: Wound SITE: Leg Lower L Reports Pre 08/26/2020 06:23 No growth GS 08/25/2020 07:26 No organisms seen. Few White Blood Cells Rare epithelial cells == ACC: [id number] ORDER: Culture Blood DATE: 08/25/2020 05:01 SOURCE: Blood SITE: Reports Pre 08/26/2020 06:01 No growth at 1 day. Pre 08/25/2020 23:02 Culture less than 24 Hrs old == ACC: [id number] ORDER: Culture Blood DATE: 08/25/2020 05:01 SOURCE: Blood SITE: Reports Pre 08/26/2020 06:01 No growth at 1 day. Pre 08/25/2020 23:02 Culture less than 24 Hrs old == Radiology Results (Last 48 hours) [id number] -- 08/25/2020 05:53 CR Chest 1 Vw [...] above. Discussed with them. Electronically signed by [facility], [facility] Conversion Small Products I Assembler Cerner at 02/04/2023 2:09 PM CDT documented in this encounter Plan of Treatment Not on file documented as of this encounter Visit Diagnoses Not on filedocumented in this encounter Care Teams Feller Operator Relationship Specialty Start Date End Date Jay Howell MD [address] [place] [phone] PCP - General Emergency Medicine 11/12/23 documented as of this encounter
--- OUTSIDE RECORDS SUMMARY | 2025-08-07 08:42 | XMS_ITS | Encounter Summary ---
Author Organization [employer] ([place], [place], [place], [place]) Address [address] [place] [address] Care Team Providers Care Precision Machine Operator Name Role Phone Jay Howell MD Primary Care Provider [phone] Encounter Details Date Type Department Care Team (Late st Contact Info) Description 08/26/2020 Transcribed Document [facility] [place] [address] [place] [address] ProviderJessie MD [address] [place], [place] [address] Social History Tobacco Use Types Packs/Day Years Used Date Smoking Tobacco: Never Assessed Comments Unknown Sex and Gender Information Value Date Recorded Sex Assigned at Not on file Legal Sex Female 7:30 PM CDT Gender Identity Not on file Sexual Orientation Not on file documented as of this encounter Miscellaneous Notes * Cerner Conversion Note - Historical ProviderMD - 08/26/2020 1:15 PM FUSE CUP EXPANDER [facility] Main OR IntraOp Summary Primary Physician: KAELA HEBERT MD Finalized Date/Time: 08/28/20 09:26:05 Pt. Name: SKYLER MONTOYAO.B./Sex: 1940 Female Med Rec #: [id number] Physician: BETH DAVALOS MD-INT Financial #: [id number] Pt. Type: I Room/Bed: [facility]/ Admit/Disch: 08/25/20 05:53:00 - Institution: [facility] IntraOp Case Attendance Entry 1 Entry 2 Entry 3 Case Attendee KAELA HEBERT MD GRAFF, WAYNE B, MD-GABY INIGUEZ CRNA Role Performed Surgeon/Proceduralist, Anesthesiologist of MEDICAL INSURANCE CLERK/Nurse Ground Host/Hostess First Record Time In 08/26/20 13:00:00 08/26/20 [...] Medrano, Saray Linton ST Role Performed Student Applications Support Engineer, First Scrub, First Time In 08/26/20 13:00:00 [...] OTHER, ATTENDEE #3 Role Performed Scrub, First American History Teacher American History Teacher Time In 08/26/20 13:00:00 08/26/20 13:00:00 08/26/20 [...] 14:32:23 Entry 10 Case Attendee Jos Ledezma, Shake Table Operator Role Performed Scrub, First Time In 08/26/20 13:50:00 Time Out 08/26/20 14:23:00 Procedure Wound Debridement Lower Extremity(Left), Aortogram Abdominal with Runoff(Left), Angioplasty Percutaneous Transluminal(Left) Other Attendee Superficial Wound Closed By: Last Modified By: Radha Medrano RN 08/26/20 14:32:23 [facility] IntraOp Case Attendance Audit 08/26/20 14:32:23 Lead Tinner: AMAN Modifier: AMAN 1 <+> Time Out [...] with Runoff(Left), Angioplasty Percutaneous Transluminal(Left) 08/26/20 13:55:12 Lead Tinner: EANAPIER Modifier: EANAPIER 6 <+> Time Out 6 <*> Procedure Wound Debridement Lower Extremity(Left), Aortogram Abdominal with Runoff(Left), Angioplasty Percutaneous Transluminal(Left) 7 <+> Time Out 7 <*> Procedure Wound Debridement Lower Extremity(Left), Aortogram Abdominal with Runoff(Left), Angioplasty Percutaneous Transluminal(Left) <+> 10 Case Attendee <+> 10 Role Performed <+> 10 Time In <+> 10 Procedure 08/26/20 13:49:11 Lead Tinner: EANAPIER Modifier: EANAPIER 1 <*> Procedure Wound [...] Extremity(Left), Aortogram Abdominal with Runoff(Left) 08/26/20 13:47:56 Lead Tinner: EANAPIER Modifier: EANAPIER 1 <*> Procedure Wound [...] Procedure Wound Debridement Lower Extremity(Left) 08/26/20 13:38:05 Lead Tinner: EANAPIER Modifier: EANAPIER <+> 1 Time In [...] 9 <*> Procedure Wound Debridement Lower Extremity(Left) [facility] IntraOp Case Times Entry 1 Patient In Room Time 08/26/20 13:00:00 Out Room Time 08/26/20 14:23:00 Anesthesia Start Time 08/26/20 13:00:00 Stop Time 08/26/20 14:23:00 Surgery / Procedure Times Start Time 08/26/20 13:15:00 Stop Time 08/26/20 14:10:00 Last Modified By: Radha Medrano RN 08/26/20 14:22:56 [facility] IntraOp Case Times Audit 08/26/20 14:22:56 Lead Tinner: EANAPIER Modifier: EANAPIER <+> 1 Out Room Time <+> 1 Stop Time 08/26/20 14:14:55 Lead Tinner: EANAPIER Modifier: EANAPIER <+> 1 Stop Time [facility] IntraOp Cautery Entry 1 ESU Identification Cautery Type Monopolar ESU ID Number [id number] ID Type Hospital Number Cautery Settings Cut Setting 30 Coag Setting 30 ESU Grounding Pad Ground Pad Type Adult Grounding Pad Site Right Upper Abdomen Grounding Pad Radha Medrano RN Applied By Grounding Pad Site Warm, dry and intact Skin Condition Before Cautery Grounding Pad Site Unchanged Skin Condition After Cautery Last Modified By: Radha Medrano RN 08/26/20 13:46:51 [facility] IntraOp Communication Entry 1 Communication To Other Comment [facility] REPORT Communication By Radha Medrano RN Date and Time 08/26/20 14:17:00 Last Modified By: Radha Medrano RN 08/26/20 14:16:35 [facility] IntraOp Counts Verification Entry 1 Procedure Wound Debridement Lower Extremity(Left), Aortogram Abdominal with Runoff(Left), Angioplasty Percutaneous Transluminal(Left) Count Info Count Type Sponge, Sharps, Miscellaneous Counts Verification Baseline/pre-procedure Sequence Count Results Not Applicable Counts Performed By Count Performed By LUNA RIGGINS (Scrub) Count Performed By Radha Medrano RN (RN) Last Modified By: Radha Medrano RN 08/26/20 13:49:13 [facility] IntraOp Counts Verification Audit 08/26/20 13:49:13 Lead Tinner: EANAPIER Modifier: EANAPIER 1 <*> Procedure Wound Debridement Lower Extremity(Left), Aortogram Abdominal with Runoff(Left) 08/26/20 13:47:59 Lead Tinner: EANAPIER Modifier: EANAPIER 1 <*> Procedure Wound Debridement Lower Extremity(Left) [facility] IntraOp Counts Final Entry 1 Procedure Wound Debridement Lower Extremity(Left), Aortogram Abdominal with Runoff(Left), Angioplasty Percutaneous Transluminal(Left) Final Count Info Count Type Sponge, Sharps, Miscellaneous Counts Verification Skin Closure/end of Sequence procedure Count Results Correct, surgeon notified Counts Performed By Count Performed By Jos Ledezma Surgical (Scrub) Zipper Setter Chainstitch Count Performed By Radha Medrano RN (RN) Last Modified By: Radha Medrano RN 08/26/20 14:24:36 [facility] IntraOp Counts Final Audit 08/26/20 14:24:36 Lead Tinner: LOVELYPIOMAYRA Modifier: EANAPIER 1 <*> Procedure Wound Debridement Lower Extremity(Left), Aortogram Abdominal with Runoff(Left), Angioplasty Percutaneous Transluminal(Left) 1 <+> Count Results 1 <+> Count Performed By (Scrub) 1 <+> Count Performed By (RN) 08/26/20 13:49:14 Lead Tinner: LOVELYPIOMAYRA Modifier: EANAPIER 1 <*> Procedure Wound Debridement Lower Extremity(Left), Aortogram Abdominal with Runoff(Left) 08/26/20 13:48:01 Lead Tinner: LOVELYPIOMAYRA Modifier: EANAPIER 1 <*> Procedure Wound Debridement Lower Extremity(Left) [facility] IntraOp Cultures and Spec Summary Entry 1 Cultrures and Specimens Specimen Ordered: Yes Test(s) Culture(s)/Microbiology Requested/Final Disposition Last Modified By: Radha Medrano RN 08/26/20 13:56:41 General Comments: LEFT ANTERIOR LEG WOUND. [facility] IntraOp Departure from OR Entry 1 Integumentary Assessment Integumentary WDL Assessment WDL Transfer/Handoff Transfer to PACU Phase II Handoff Method Phone call Post-op Transport Stretcher/Gurney Via Patient Transport Radha Medrano RN Accompanied by Transfer/Handoff PT TRANSPORTED TO [facility], PT STABLE Last Modified By: Radha Medrano RN 08/26/20 14:24:24 General Comments: [id number] LALA RNBOX MACHINE OPERATOR [facility] IntraOp Dressing and Packing Entry 1 Type Dressing Wound Dressing Item Skin Closure Glue Applied By KAELA HEBERT MD Last Modified By: Radha Medrano RN 08/26/20 13:45:13 [facility] IntraOp Fire Risk Assessment Entry [...] Modified By: Radha Medrano RN 08/26/20 13:40:08 [facility] IntraOp General Case Consulting Senior Practice Director 1 Case Information OR OR 20 [facility] Case Level 1 Room Verified Yes Wound Class II - Clean-Contaminated Specialty SN Endovascular Anesthesia Type MAC ASA Class 4 Diagnosis Preop Diagnosis LEFT LEG WOUND Postop Same As Preop No Postop Diagnosis SEE MD NOTE Last Modified By: Radha Medrano RN 08/26/20 13:44:53 [facility] IntraOp Implant Log Entry 1 Type Implant (Synthetic) Implant Log Implant DEVICE CLSR ANGIO-SEAL Identification [facility] [id number] Description Implant Quantity 1 Implant Site RIGHT Implant [id number] Identification Lot Number Implant [facility] Med:Cardiac Surg Identification Park Worker Name: Implant [id number] Identification Catalog Number Implant Has an Yes Expiration Date Implant Expiration 06/16/21 Date Tissue Implant Last Modified By: Radha Medrano RN 08/26/20 14:23:44 [facility] IntraOp Intraoperative Assessment Entry 1 [...] Modified By: Radha Medrano RN 08/26/20 13:44:22 [facility] IntraOp Intraoperative Equipment Entry 1 Type Monitoring Equipment Intraop Monitoring Electrocardiogram Three lead placement (ECG) Electrode Placement Blood Pressure Non-Invasive BP Device Source Blood Pressure Arm, right upper Location Pulse Oximeter Hand, left Probe Site Antiembolic Devices Scopes Photo/Video Documentation Last Modified By: Radha Medrano RN 08/26/20 13:43:20 [facility] IntraOp Medication Admin Entry 1 Entry 2 Entry 3 Medication/Irrigant PRM-LB VISIPAQUE 320MG lidocaine 1% 10mg/1ml COMBO heparin in NS [id number] 50ml vial - [id number] flush 2000units/1000ml --[id number] Combo Med List Time Administered Route of Administration Dose Dose 320 2000 Unit of Measure mg units Volume Administered By KAELA HEBERT MD MENES, KEITH, MD MENES, KEITH, MD Procedure Irrigation Irrigant Volume In Irrigant Volume Out Last Modified By: Radha Medrano RN Napier, Elizabeth A, RN Napier, Elizabeth A, RN 08/26/20 13:42:30 08/26/20 13:42:30 08/26/20 13:42:30 [facility] IntraOp Patient Positioning Entry 1 [...] Modified By: Radha Medrano RN 08/26/20 13:49:13 [facility] IntraOp Patient Positioning Audit 08/26/20 13:49:13 Lead Tinner: EANAPIER Modifier: EANAPIER 1 <*> Procedure Wound Debridement Lower Extremity(Left), Aortogram Abdominal with Runoff(Left) 08/26/20 13:48:00 Lead Tinner: EANAPIER Modifier: EANAPIER 1 <*> Procedure Wound Debridement Lower Extremity(Left) [facility] IntraOp Sign In Entry 1 [...] Modified By: Radha Medrano RN 08/26/20 13:31:46 [facility] IntraOp Sign Out Entry 1 [...] Modified By: Radha Medrano RN 08/26/20 14:32:44 [facility] IntraOp Sign Out Audit 08/26/20 14:32:44 Lead Tinner: AMAN Modifier: AMAN 1 <*> Specimen Labeled Correctly N/A 1 <+> RN Sign Out Signature 1 <+> RN Sign Out Signature Date/Time [facility] IntraOp Skin Prep Entry 1 Procedure Wound Debridement Lower Extremity(Left), Aortogram Abdominal with Runoff(Left), Angioplasty Percutaneous Transluminal(Left) Prescribed N/A Pre-Surgical Prep Completed Prep Area BILATERAL GROINS, LEFT LOWER LEG Intraop Prep Prep Agents Chloraprep Prep by Radha Medrano RN Hair Removal Methods No hair removal performed Last Modified By: Radha Medrano RN 08/26/20 13:49:14 [facility] IntraOp Skin Prep Audit 08/26/20 13:49:14 Lead Tinner: AMAN Modifier: REGINANAPIER 1 <*> Procedure Wound Debridement Lower Extremity(Left), Aortogram Abdominal with Runoff(Left) 08/26/20 13:48:00 Lead Tinner: AMAN Modifier: LOVELYPIER 1 <*> Procedure Wound Debridement Lower Extremity(Left) [facility] IntraOp Surgical Procedures Entry 1 [...] RN 08/26/20 14:22:50 08/26/20 14:22:50 08/26/20 14:22:50 [facility] IntraOp Surgical Procedures Audit 08/26/20 14:22:50 Lead Tinner: AMAN Modifier: REGINANAPIER 1 <*> Procedure Wound Debridement Lower Extremity 1 <+> Stop <+> 2 Stop <+> 3 Stop 08/26/20 13:56:00 Lead Tinner: LOVELYPIOMAYRA Modifier: EANAPIER 1 <*> Procedure Wound Debridement Lower Extremity 1 <*> Additional Procedure Description (LT LOWER EXTREMTIY WOUND DEBRIDEMENT WITH WOUND VAC) 08/26/20 13:48:53 Lead Tinner: EANAPIER Modifier: EANAPIER <+> 3 Procedure <+> 3 Primary Procedure <+> 3 Modifiers <+> 3 Primary Surgeon <+> 3 Specialty <+> 3 Start <+> 3 Wound Class <+> 3 Anesthesia Type 08/26/20 13:47:52 Lead Tinner: EANAPIER Modifier: EANAPIER <+> 2 Procedure <+> 2 Primary Procedure <+> 2 Modifiers <+> 2 Primary Surgeon <+> 2 Specialty <+> 2 Start <+> 2 Wound Class <+> 2 Anesthesia Type 08/26/20 13:43:42 Lead Tinner: EANAPIER Modifier: EANAPIER 1 <*> Procedure Wound Debridement Lower Extremity 1 <+> Specialty 1 <*> Anesthesia Type General [facility] IntraOP Time Out Entry 1 [...] Modified By: Radha Medrano RN 08/26/20 13:49:14 [facility] IntraOP Time Out Audit 08/26/20 13:49:14 Lead Tinner: AMAN Modifier: EANAPIER 1 <*> Procedure to be Performed Wound Debridement Lower Extremity(Left), Aortogram Abdominal with Runoff(Left) 08/26/20 13:48:01 Lead Tinner: REGINANAPIER Modifier: EANAPIER 1 <*> Procedure to be Performed Wound Debridement Lower Extremity(Left) [facility] IntraOp X-Ray and Images Entry [...] WATTSDR Correct Billing Electronically signed by Sivan [facility] Conversion Fuse Cup Expander Cerner at 02/04/2023 2:03 PM CDT documented in this encounter Plan of Treatment Not on file documented as of this encounter Visit Diagnoses Not on filedocumented in this encounter Care Teams Precision Machine Operator Relationship Specialty Start Date End Date Jay Howell MD [address] [place] [phone] PCP - General Emergency Medicine 11/12/23 documented as of this encounter
--- OUTSIDE RECORDS SUMMARY | 2025-08-07 08:42 | XMS_ITS | Encounter Summary ---
Author Organization [employer] ([place], [place], [place], [place]) Address [address] [place] [address] Care Team Providers Care Recreation Teacher Name Role Phone Jay Howell MD Primary Care Provider [phone] Encounter Details Date Type Department Care Team (Late st Contact Info) Description 08/26/2020 Transcribed Document [facility] [place] [address] [place] [address] ProviderJessie MD [address] [place] [address] Social History Tobacco Use Types Packs/Day Years Used Date Smoking Tobacco: Never Assessed Comments Unknown Sex and Gender Information Value Date Recorded Sex Assigned at Not on file Legal Sex Female 7:30 PM CDT Gender Identity Not on file Sexual Orientation Not on file documented as of this encounter Miscellaneous Notes * Cerner Conversion Note - Historical ProviderMD - 08/26/2020 2:49 PM CASH ROOM CLERK Patient: SKYLER MONTOYA Age: 79 years [...] filedocumented in this encounter Care Teams Recreation Teacher Relationship Specialty Start Date End Date Jay Howell MD [address] [place] [phone] PCP - General Emergency Medicine 11/12/23 documented as of this encounter
--- OUTSIDE RECORDS SUMMARY | 2025-08-07 08:42 | XMS_ITS | Encounter Summary ---
Author Organization [employer] ([place], [place], [place], [place]) Address [address] [place] [address] Care Team Providers Care Medical Information Specialist Name Role Phone Jay Howell MD Primary Care Provider [phone] Encounter Details Date Type Department Care Team (Late st Contact Info) Description 03/18/2021 Transcribed Document [facility] [place] [facility] [place] [address] ProviderJessie MD [address] [place] [address] Social History Tobacco Use Types Packs/Day Years [...] Performed On: 03/18/2021 8:56 EDT by MARILYNN RAMÍRZE, RN-Utilization Review Primary Insurance Authorization Authorization and Policy Numbers : Insurance 1 Health Plan: MEDICARE Policy Number: [id number] Authorization Number: Insurance 2 Health Plan: AARP N Policy Number: [id number] Authorization Number: Insurance Primary Name : MEDICARE Policy Number: [id number] Authorized Service Begin Date-Primary : 03/16/2021 EDT Historical Authorization Comments-Primary : No Authorization Comments Found MARILYNN RAMÍREZ, RN-Utilization Review - 03/18/2021 8:56 EDT Electronically signed by Sivan [facility] Conversion Toll Test Desk Worker Cerner at 02/04/2023 2:20 PM CDT documented in this encounter Plan of Treatment Not on file documented as of this encounter Visit Diagnoses Not on filedocumented in this encounter Care Teams Medical Information Specialist Relationship Specialty Start Date End Date Jay Howell MD [address] [place] [phone] PCP - General Emergency Medicine 11/12/23 documented as of this encounter
--- OUTSIDE RECORDS SUMMARY | 2025-08-07 08:42 | XMS_ITS | Encounter Summary ---
Author Organization [employer] ([place], [place], [place], [place]) Address [address] [place] [address] Care Team Providers Care Clinical Pharmacy Technician Name Role Phone Jay Howell MD Primary Care Provider [phone] Encounter Details Date Type Department Care Team (Late st Contact Info) Description 08/26/2020 Transcribed Document [facility] [place] [address] [place] [address] ProviderJessie MD [address] [place], [place] [address] Social History Tobacco Use Types Packs/Day Years Used Date Smoking Tobacco: Never Assessed Comments Unknown Sex and Gender Information Value Date Recorded Sex Assigned at Not on file Legal Sex Female 7:30 PM CDT Gender Identity Not on file Sexual Orientation Not on file documented as of this encounter Miscellaneous Notes * Cerner Conversion Note - Historical ProviderMD - 08/26/2020 2:00 AM TESTS SUPERINTENDENT Ore Digger Details Entered On: 08/26/2020 2:00 EST Performed On: 08/26/2020 2:00 EST by Kervin Kulkarni RN Order Details Isolation Precautions Order Detail : Standard Precautions Order Detail : N/A IV Order Detail : 1 Oxygen Order Detail : 0 Lift/Transfer : Independent Room Service : Not Appropriate Patient Needs Meds Crushed/Liquid : No Kervin Kulkarni RN - 08/26/2020 1:56 EST Electronically signed by Sivan [facility] Conversion Rubber And Pounder Cerner at 02/04/2023 2:10 PM CDT documented in this encounter Plan of Treatment Not on file documented as of this encounter Visit Diagnoses Not on filedocumented in this encounter Care Teams Clinical Pharmacy Technician Relationship Specialty Start Date End Date Jay Howell MD [address] [place] [phone] PCP - General Emergency Medicine 11/12/23 documented as of this encounter
--- OUTSIDE RECORDS SUMMARY | 2025-08-07 08:42 | XMS_ITS | Encounter Summary ---
Author Organization [employer] ([place], [place], [place], [place]) Address [address] [place] [address] Care Team Providers Care Lab Associate Name Role Phone Jay Howell MD Primary Care Provider [phone] Encounter Details Date Type Department Care Team (Late st Contact Info) Description 03/18/2021 Transcribed Document [facility] [place] [facility] [place] [address] ProviderJessie MD [address] [place], [place] [address] Social History Tobacco Use Types Packs/Day Years Used Date Smoking Tobacco: Never Assessed Comments Unknown Sex and Gender Information Value Date Recorded Sex Assigned at Not on file Legal Sex Female 7:30 PM CDT Gender Identity Not on file Sexual Orientation Not on file documented as of this encounter Miscellaneous Notes * Cerner Conversion Note - Jessie ProviderMD - 03/18/2021 2:00 AM CDT Blow Molding Machine Tender Details Entered On: 03/18/2021 7:00 EDT Performed [...] 03/18/2021 7:00 EDT Electronically signed by Sivan [facility] Conversion Supervisor Tubing Cerner at 02/04/2023 2:06 PM CDT documented in this encounter Plan of Treatment Not on file documented as of this encounter Visit Diagnoses Not on filedocumented in this encounter Care Teams Lab Associate Relationship Specialty Start Date End Date Jay Howell MD [address] [place] [phone] PCP - General Emergency Medicine 11/12/23 documented as of this encounter
--- OUTSIDE RECORDS SUMMARY | 2025-08-07 08:42 | XMS_ITS | Encounter Summary ---
Author Organization [email or web address] ([place], [place], [place], [place]) Address [address] [place] [address] Care Team Providers Care Senior Report Developer Name Role Phone Jay Howell MD Primary Care Provider [phone] Encounter Details Date Type Department Care Team (Late st Contact Info) Description 03/18/2021 Transcribed Document [facility] [place] [facility] [place] [address] ProviderJessie MD [address] [place], [place] [phone] Social History Tobacco Use Types Packs/Day Years [...] Lymph # 1.66 x10(3)/uL 03/18/2021 05:19 EDT [place] % 11.4 % (High) 03/18/2021 05:19 EDT [place] # 0.75 K/uL 03/18/2021 05:19 EDT Eos [...] filedocumented in this encounter Care Teams Senior Report Developer Relationship Specialty Start Date End Date Jay Howell MD [address] [place] [phone] PCP - General Emergency Medicine 11/12/23 documented as of this encounter
--- OUTSIDE RECORDS SUMMARY | 2025-08-07 08:42 | XMS_ITS | Encounter Summary ---
Author Organization [employer] ([place], [place], [place], [place]) Address [address] [place] [address] Care Team Providers Care Commissioner Of Officials Name Role Phone Jay Howell MD Primary Care Provider [phone] Encounter Details Date Type Department Care Team (Late st Contact Info) Description 03/18/2021 Transcribed Document [facility] [place] [facility] [place] [address] ProviderJessie MD [address] [place], [place] [address] Social History Tobacco Use Types Packs/Day Years [...] in this encounter Care Teams Commissioner Of Officials Relationship Specialty Start Date End Date Jay Howell MD [address] [place] [phone] PCP - General Emergency Medicine 11/12/23 documented as of this encounter
--- OUTSIDE RECORDS SUMMARY | 2025-08-07 08:42 | XMS_ITS | Encounter Summary ---
Author Organization [employer] ([place], [place], [place], [place]) Address [address] [place] [address] Care Team Providers Care Screen Printing Loader Unloader Name Role Phone Jay Howell MD Primary Care Provider [phone] Encounter Details Date Type Department Care Team (Late st Contact Info) Description 08/26/2020 Transcribed Document [facility] [place] Family Medicine [address] [place] [address] ProviderJessie MD [address] [place] [address] Social History Tobacco Use Types Packs/Day Years Used Date Smoking Tobacco: Never Assessed Comments Unknown Sex and Gender Information Value Date Recorded Sex Assigned at Not on file Legal Sex Female 7:30 PM CDT Gender Identity Not on file Sexual Orientation Not on file documented as of this encounter Miscellaneous Notes * Cerner Conversion Note - Historical ProviderMD - 08/26/2020 2:23 PM OIL PIT ATTENDANT Patient: SKYLER MONTOYA Age: 79 Years Sex: [...] LEFT PT occlusion - distal *Operation RIGHT FIELD MARKETING SPECIALIST access - ultrasound guided Aortogram with LEFT lower extremity run-off LEFT PT angioplasty (2.5-1y797dq Nanocross) LEFT peroneal angioplasty (2.5-9f092cf Nanocross) RIGHT FIELD MARKETING SPECIALIST closure (Angioseal) LEFT leg debridement *Surgeon [...] and EIA are patent. The common femoral (FIELD MARKETING SPECIALIST) artery is patent dividing into the [...] The patient was placed supine on the production laborer table and the BILATERAL groins and LEFT leg were prepped and draped in usual sterile fashion. The patient was identified as SKYLER MONTOYA by the entire procedural team as per time out protocol. Next, local anesthetic was infiltrated into the groin region. The RIGHT FIELD MARKETING SPECIALIST was accessed in retrograde fashion under ultrasound guidance using micropuncture technique and a 5Fr sheath was installed. Next, an Omni flush catheter was advanced into the infrarenal aorta and an aortogram was obtained; see above. Next, the catheter and 035/260 glide advantage wire (GAW) were directed up-and-over into the LEFT FIELD MARKETING SPECIALIST and additional run-off views were obtained in station; see above. Next, the sheath was upsized to a 6Fr/45cm destination sheath which was positioned in the LEFT FIELD MARKETING SPECIALIST. The patient was then systemically heparinized. [...] 13:15:00 (08/26/20 13:48:53) Electronically signed by Sivan [facility] Conversion Injection Molding Supervisor Cerner at 02/04/2023 2:09 PM CDT documented in this encounter Plan of Treatment Not on file documented as of this encounter Visit Diagnoses Not on filedocumented in this encounter Care Teams Screen Printing Loader Unloader Relationship Specialty Start Date End Date Jay Howell MD [address] [place] [phone] PCP - General Emergency Medicine 11/12/23 documented as of this encounter
--- OUTSIDE RECORDS SUMMARY | 2025-08-07 08:42 | XMS_ITS | Encounter Summary ---
Author Organization [employer] ([place], [place], [place], [place]) Address [address] [place] [address] Care Team Providers Care Career Coordinator Name Role Phone Jay Howell MD Primary Care Provider [phone] Encounter Details Date Type Department Care Team (Late st Contact Info) Description 08/26/2020 Transcribed Document [facility] [place] Family Medicine [address] [place] [address] ProviderJessie MD [address] [place] [address] Social History Tobacco Use Types Packs/Day Years Used Date Smoking Tobacco: Never Assessed Comments Unknown Sex and Gender Information Value Date Recorded Sex Assigned at Not on file Legal Sex Female 7:30 PM CDT Gender Identity Not on file Sexual Orientation Not on file documented as of this encounter Miscellaneous Notes * Cerner Conversion Note - Historical ProviderMD - 08/26/2020 12:15 PM FERMENTATION ENGINEER Peripheral Nerve Block Entered On: 08/26/2020 12:27 [...] - 08/26/2020 12:25 EST Electronically signed by [facility], [facility] Conversion Concrete Floater Cerner at 02/04/2023 2:08 PM CDT documented in this encounter Plan of Treatment Not on file documented as of this encounter Visit Diagnoses Not on filedocumented in this encounter Care Teams Career Coordinator Relationship Specialty Start Date End Date Jay Howell MD [address] [place] [phone] PCP - General Emergency Medicine 11/12/23 documented as of this encounter
--- OUTSIDE RECORDS SUMMARY | 2025-08-07 08:42 | XMS_ITS | Encounter Summary ---
Author Organization [employer] ([place], [place], [place], [place]) Address [address] [place] [address] Care Team Providers Care Credit Relationship Manager Name Role Phone Jay Howell MD Primary Care Provider [phone] Encounter Details Date Type Department Care Team (Late st Contact Info) Description 03/18/2021 Transcribed Document [facility] [place] [facility] [place] [address] ProviderJessie MD [address] [place] [phone] Social History Tobacco Use Types Packs/Day Years [...] 03/18/2021 17:56 EDT Electronically signed by Sivan [facility] Conversion Ios Software Engineer Cerner at 02/04/2023 2:21 PM CDT documented in this encounter Plan of Treatment Not on file documented as of this encounter Visit Diagnoses Not on filedocumented in this encounter Care Teams Credit Relationship Manager Relationship Specialty Start Date End Date Jay Howell MD [address] [place] [phone] PCP - General Emergency Medicine 11/12/23 documented as of this encounter
--- OUTSIDE RECORDS SUMMARY | 2025-08-07 08:42 | XMS_ITS | Encounter Summary ---
Author Organization [employer] ([place], [place], [place], [place]) Address [address] [place] [address] Care Team Providers Care Off Track Betting Manager Name Role Phone Jay Howell MD Primary Care Provider [phone] Encounter Details Date Type Department Care Team (Late st Contact Info) Description 08/26/2020 Transcribed Document [facility] [place] [address] [place] [address] ProviderJessie MD [address] [place] [address] Social History Tobacco Use Types Packs/Day Years Used Date Smoking Tobacco: Never Assessed Comments Unknown Sex and Gender Information Value Date Recorded Sex Assigned at Not on file Legal Sex Female 7:30 PM CDT Gender Identity Not on file Sexual Orientation Not on file documented as of this encounter Miscellaneous Notes * Cerner Conversion Note - Historical ProviderMD - 08/26/2020 2:16 PM QUALITY CONTROL MICROBIOLOGIST Initial Discharge Planning Entered On: 08/26/2020 14:19 EST Performed On: 08/26/2020 14:16 EST by KAVITA PELLETIER RN-Tissue Recovery Technician Initial Assessment I Previously Documented Living [...] Listed? : Yes Medical Durable Power of Timber Skidder Name : No KAVITA PELLETIER RN-Tissue Recovery Technician - 08/26/2020 14:16 EST Initial Assessment II Sensory and Motor Deficits : Weakness Current Home Treatments and Equipment : CPAP, Walker KAVITA PELLETIER RN-Tissue Recovery Technician - 08/26/2020 14:16 EST Narrative Note Narrative [...] upon POC. CM will follow. KAVITA PELLETIER RN-Tissue Recovery Technician - 08/26/2020 14:16 EST documented in this encounter Plan of Treatment Not on file documented as of this encounter Visit Diagnoses Not on filedocumented in this encounter Care Teams Off Track Betting Manager Relationship Specialty Start Date End Date Jay Howell MD [address] [place] [phone] PCP - General Emergency Medicine 11/12/23 documented as of this encounter
--- OUTSIDE RECORDS SUMMARY | 2025-08-07 08:42 | XMS_ITS | Encounter Summary ---
Author Organization [employer] ([place], [place], [place], [place]) Address [address] [place] [address] Care Team Providers Care Investment Officer Name Role Phone Jay Howell MD Primary Care Provider [phone] Encounter Details Date Type Department Care Team (Late st Contact Info) Description 03/18/2021 Transcribed Document [facility] [place] [facility] [place] [address] ProviderJessie MD [address] [place] [phone] Social History Tobacco Use Types Packs/Day Years [...] by Sivan, [facility] Conversion Drainage Engineer Cerner at 02/04/2023 2:20 PM CDT documented in this encounter Plan of Treatment Not on file documented as of this encounter Visit Diagnoses Not on filedocumented in this encounter Care Teams Investment Officer Relationship Specialty Start Date End Date Jay Howell MD [address] [place] [phone] PCP - General Emergency Medicine 11/12/23 documented as of this encounter
--- OUTSIDE RECORDS SUMMARY | 2025-08-07 08:44 | XMS_ITS | Encounter Summary ---
Author Organization [employer] ([place], [place], [place], [place]) Address [address] [place] [address] Care Team Providers Care Digital Music Instructor Name Role Phone Jay Howell MD Primary Care Provider [phone] Encounter Details Date Type Department Care Team (Late st Contact Info) Description 03/16/2021 Transcribed Document [facility] [place] [address] [place] [address] ProviderJessie MD [address] [place], [place] [address]111 Social History Tobacco Use Types Packs/Day Years Used Date Smoking Tobacco: Never Assessed Comments Unknown Sex and Gender Information Value Date Recorded Sex Assigned at Not on file Legal Sex Female 7:30 PM CDT Gender Identity Not on file Sexual Orientation Not on file documented as of this encounter Miscellaneous Notes * Cerner Conversion Note - Jessie ProviderMD - 03/16/2021 11:24 AM CDT Mathews Suicide Severity Rating Scale (C-SSRS) Entered On: 03/16/2021 12:59 EDT Performed On: 03/16/2021 12:57 EDT by Viri Gonsales RN Mathews Suicide Severity Rating Scale (C-SSRS) CSSRS Past [...] filedocumented in this encounter Care Teams Digital Music Instructor Relationship Specialty Start Date End Date Jay Howell MD [address] [place] [phone] PCP - General Emergency Medicine 11/12/23 documented as of this encounter
--- OUTSIDE RECORDS SUMMARY | 2025-08-07 08:44 | XMS_ITS | Encounter Summary ---
Author Organization [employer] ([place], [place], [place], [place]) Address [address] [place] [address] Care Team Providers Care Hold Worker Name Role Phone Jay Howell MD Primary Care Provider [phone] Encounter Details Date Type Department Care Team (Late st Contact Info) Description 03/16/2021 Transcribed Document [facility] [place] [facility] [place] [address] ProviderJessie MD [address] [place], [place] [address] Social History Tobacco Use Types Packs/Day Years [...] Communication Barrier : None Primary Language : Salvadorean Any Spiritual/Cultural Needs or Requests : No [...] WDL : WDL with exceptions (Comment: Dizziness ANALYSIS OR RESEARCH SAFETY INSPECTOR, states that she passed out and the room was spinning [Viri Gonsales RN - 03/16/2021 12:57 EDT] ) Viri Gonsales RN - 03/16/2021 12:57 EDT Electronically signed by [facility], [facility] Conversion Model And Pattern Supervisor Cerner at 02/04/2023 2:07 PM CDT documented in this encounter Plan of Treatment Not on file documented as of this encounter Visit Diagnoses Not on filedocumented in this encounter Care Teams Hold Worker Relationship Specialty Start Date End Date Jay Howell MD [address] [place] [phone] PCP - General Emergency Medicine 11/12/23 documented as of this encounter
--- OUTSIDE RECORDS SUMMARY | 2025-08-07 08:44 | XMS_ITS | Encounter Summary ---
Author Organization [employer] ([place], [place], [place], [place]) Address [address] [place] [address] Care Team Providers Care Radiotelephone Operator Name Role Phone Jay Howell MD Primary Care Provider [phone] Encounter Details Date Type Department Care Team (Late st Contact Info) Description 03/16/2021 Transcribed Document [facility] [place] Family Medicine [facility], [facility] [place] [address] ProviderJessie MD [address] [place] [phone] Social History Tobacco Use Types Packs/Day Years [...] on filedocumented in this encounter Care Teams Radiotelephone Operator Relationship Specialty Start Date End Date Jay Howell MD [address] [place] [phone] PCP - General Emergency Medicine 11/12/23 documented as of this encounter
--- OUTSIDE RECORDS SUMMARY | 2025-08-07 08:44 | XMS_ITS | Encounter Summary ---
Author Organization [employer] ([place], [place], [place], [place]) Address [address] [place] [address] Care Team Providers Care Assembler Tester Name Role Phone Jay Howell MD Primary Care Provider [phone] Encounter Details Date Type Department Care Team (Late st Contact Info) Description 06/13/2020 Transcribed Document [facility] [place] Medicine [address] [place] [address] ProviderJessie MD [address] [place] [address] Social History Tobacco Use Types Packs/Day Years [...] filedocumented in this encounter Care Teams Assembler Tester Relationship Specialty Start Date End Date Sokan, Jay O, MD [address] [place] [phone] PCP - General Emergency Medicine 11/12/23 documented as of this encounter
--- OUTSIDE RECORDS SUMMARY | 2025-08-07 08:44 | XMS_ITS | Encounter Summary ---
Author Organization [employer] ([place], [place], [place], [place]) Address [address] [place] [address] Care Team Providers Care Pest Management Supervisor Name Role Phone Jay Howell MD Primary Care Provider [phone] Encounter Details Date Type Department Care Team (Late st Contact Info) Description 03/16/2021 Transcribed Document [facility] [place] Family Medicine [address] [place] [address] ProviderJessie MD [address] [place], [place] [address]241 Social History Tobacco Use Types Packs/Day Years [...] 03/16/2021 12:57 EDT Electronically signed by Sivan [facility] Conversion Plunger Scoop Operator Cerner at 02/04/2023 1:58 PM CDT documented in this encounter Plan of Treatment Not on file documented as of this encounter Visit Diagnoses Not on filedocumented in this encounter Care Teams Pest Management Supervisor Relationship Specialty Start Date End Date Jay Howell MD [address] [place] [phone] PCP - General Emergency Medicine 11/12/23 documented as of this encounter
--- OUTSIDE RECORDS SUMMARY | 2025-08-07 08:44 | XMS_ITS | Encounter Summary ---
Author Organization [employer] ([place], [place], [place], [place]) Address [address] [place] [address] Care Team Providers Care Rug Frame Mounter Name Role Phone Jay Howell MD Primary Care Provider [phone] Encounter Details Date Type Department Care Team (Late st Contact Info) Description 06/13/2020 Transcribed Document [facility] [place] Family Medicine [address] [place] [address] ProviderJessie MD [address] [place] [address] Social History Tobacco Use Types Packs/Day Years [...] MD-CAR Basic Information PCP: Avtar Moeller MD Cartridge Assembling Machine Adjuster: Stephania Garcia MD Chief Complaint Chest pain History of Present Illness 79 year old female with history of CAD s/p CABG (1992) and subsequent stents in 2007 [id number], Paroxysmal atrial fibrillation and prior PE on chronic Warfarin, HTN, HLD, Carotid stenosis, Seizure disorder, DATNE, COPD and DMII presents to the ER [...] mg tab 2 mg 1 Tab, Oral, [facility] 3 mg tab 3 mg 1 [...] History: Active Cataract Glaucoma Coronary artery disease (8896093631) Stented coronary artery (5776659482) High blood pressure (27119154) Hyperlipidemia (28609586) COPD (53933848) GERD - Gastro-esophageal reflux disease (7452290414) Multiple renal cysts (442468512) UTI - Urinary tract infection (6439180453) Arthritis (6154315) Diabetes mellitus (943284949) Emphysema (128368116) Apnea, sleep (247016096) Hx of pulmonary embolus (545509619) Chronic anticoagulation (373878601) Atrial fibrillation with RVR (4066174211) Family History: Cardiomyopathy Child Stroke Brother Heart attack Brother Sister Leukemia Child Cancer Father Mother Sister Coronary heart disease Child Procedure history: Cardiac Stent in 2010 at 70 Years. Coronary artery bypass graft (506920289) in 1992 at 52 Years. femur repair. Appendectomy (405063840). uterine suspension. Hysterectomy (634234406). back surgury. Cholecystectomy (01028054). Hip replacement (7814644607). cataract surgury. Physical Examination VS/Measurements Vitals Signs [...] of motion, Normal strength. Integumentary: Warm, Dry, [place]. Neurologic: Alert, Oriented. Psychiatric: Cooperative, Appropriate mood [...] 24 Hours) Radiology Results (Last 48 hours) [id number] -- 06/12/2020 23:54 CR Chest 1 Vw [...] <0.015 (JUN 13) <0.015 (JUN 12) . [facility] IMPRESSION: Angiographically, the patient has severe [...] filedocumented in this encounter Care Teams Rug Frame Mounter Relationship Specialty Start Date End Date Jay Howell MD [address] [place] [phone] PCP - General Emergency Medicine 11/12/23 documented as of this encounter
--- OUTSIDE RECORDS SUMMARY | 2025-08-07 08:44 | XMS_ITS | Encounter Summary ---
Author Organization [employer] ([place], [place], [place], [place]) Address [address] [place] [address] Care Team Providers Care Consumer Lender Name Role Phone Jay Howell MD Primary Care Provider [phone] Encounter Details Date Type Department Care Team (Late st Contact Info) Description 03/16/2021 Transcribed Document [facility] [place] [address] [place] [id number] ProviderJessie MD [address] [place] [phone] Social History Tobacco Use Types Packs/Day Years [...] EDT - EVA WESLEY RN PCI w/ [place] stent to D1 Coronary artery bypass graft (524756969) in 1992 at 52 Years. femur repair. Appendectomy (405542830). uterine suspension. Hysterectomy (962222883). back surgury. Cholecystectomy (34571886). Hip replacement (6779552065). cataract surgury.. Family history: Cardiomyopathy Child Stroke [...] EDT Height Source Stated Height Entry Format Greene Height/Length, ARMENIAN (ft) 5 ft Height/Length ARMENIAN 3 Inch CLINICALHEIGHT 160.02 cm [place] Body Weight 52.02 kg Weight Source, ED Critical estimated dosing weight Weight Entry Format Greene Weight Amharic lb 158 lb CLINICALWEIGHT 71.82 kg Body [...] Triage: ED C-SSRS: ED Clinical Reconciliation: ED placement officer: Lactic Acid Level with Reflex if Indicated: Lipase Level: Normal Saline Bolus: 500 mL, 500 mL/Hr, IV Piggyback, 1-Time PT/INR Prothrombin Time: PTT: Saline Lock Insert: Troponin I Ultra: Urinalysis UA Rflx Microscopic Cult if Ind: Zofran: 4 mg, IV Push, 1-Time. punch card operator: Normal sinus rhythm. Electrocardiogram: Time 03/16/2021 11:38:00, rate 59, normal sinus rhythm, No ST changes, no ectopy, normal SC & QRS intervals, EP Interp. Results review: All Results 03/16/2021 14:09 EDT Urine Type. U CleanCatch Urine Color Yellow Urine Appearance Clear Urine Specific [place] 1.014 Urine pH Dipstick 5.5 LOW Urine [...] 15.6 % LOW Lymph # 1.52 x10(3)/uL Dickson % 5.1 % Dickson # 0.50 K/uL Eos % 0.0 % Eos # 0.00 x10(3)/uL Baso % 0.3 % Baso # 0.03 x10(3)/uL Slide Review No IG# 0.06 x10(3)/uL HI IG% 0.60 % . Radiology results: Radiology Results (Last 48 hours) [id number] -- 03/16/2021 11:24 CR Hip Uni Comp [...] reviewed, interpreted, and dictated by Dr. Charlette Herrrea.Transcribed by Kitty Villarreal PA-C.I have personally viewed, [...] Care: Telemetry unit, Admitting: MARIA ELENA DAVALOS MD-[facility], Launch Orders Consults: Consult to Physician (Order): Start: 03/16/2021 15:29 EDT, Consult to: SAMANTHA PINA MD-[facility], For right wrist fracture, Parole Agent Notified by Physician, Group/Instructions: [facility] clinic ortho. Notes: I certify that the MLP/JEWELRY FINISHER performed the services as delegated. . Electronically signed by Sivan [facility] Conversion Milliner Helper Cerner at 02/04/2023 1:57 PM CDT documented in this encounter Plan of Treatment Not on file documented as of this encounter Visit Diagnoses Not on filedocumented in this encounter Care Teams Consumer Lender Relationship Specialty Start Date End Date Jay Howell MD [address] [place] [phone] PCP - General Emergency Medicine 11/12/23 documented as of this encounter
--- OUTSIDE RECORDS SUMMARY | 2025-08-07 08:44 | XMS_ITS | Encounter Summary ---
Author Organization [employer] ([place], [place], [place], [place]) Address [address] [place] [address] Care Team Providers Care Operations Analyst Name Role Phone Jay Howell MD Primary Care Provider [phone] Encounter Details Date Type Department Care Team (Late st Contact Info) Description 03/16/2021 Transcribed Document [facility] [place] Family Medicine [address] [place] [address] ProviderJessie MD [address] [place] [id number] Social History Tobacco Use Types Packs/Day Years [...] : 2 - Emergent Tracking Group : [facility] ED NICOLE CHEN RN - 03/16/2021 [...] 11:35:39 EDT) Problems(Active) Apnea, sleep (SNOMED CT :417340384 ) Name of Problem: Apnea, sleep ; Recorder: JUAN LUIS GIL RN; Confirmation: Confirmed ; Classification: Medical ; Code: [id number] ; Contributor System: PowerChart ; Last Updated: 11/12/2014 10:12 EST ; Life Cycle Date: 11/12/2014 ; Life Cycle Status: Active ; Vocabulary: SNOMED CT Arthritis (SNOMED CT :5866789 ) Name of Problem: Arthritis ; Recorder: KENYON CHAMBERS RN; Confirmation: Confirmed ; Classification: Medical ; Code: [id number] ; Contributor System: PowerChart ; Last Updated: 04/10/2016 8:04 EDT ; Life Cycle Date: 08/13/2013 ; Life Cycle Status: Active ; Vocabulary: SNOMED CT Atrial fibrillation with RVR (SNOMED CT :2983584883 ) Name of Problem: Atrial fibrillation with RVR ; Recorder: SANG RICO APRN; Confirmation: Confirmed ; Classification: Medical ; Code: [id number] ; Contributor System: PowerChart ; Last Updated: 04/10/2016 8:05 EDT ; Life Cycle Date: 04/10/2016 ; Life Cycle Status: Active ; Responsible Provider: SANG RICO APRN; Vocabulary: SNOMED CT Blood clot (SNOMED CT :970305394 ) Name of Problem: Blood clot ; Recorder: KENYON CHAMBERS RN; Confirmation: Confirmed ; Classification: Patient Stated ; Code: [id number] ; Contributor System: PowerChart ; Last Updated: [...] Vocabulary: Patient Care Chest pain (SNOMED CT :34724040 ) Name of Problem: Chest pain ; Recorder: SANG RICO APRN; Confirmation: Complaint of ; Classification: Medical ; Code: 21294022 ; Contributor System: PowerChart ; Last Updated: 04/10/2016 8:05 EDT ; Life Cycle Status: Active ; Responsible Provider: SANG RICO APRN; Vocabulary: SNOMED CT Chronic anticoagulation (SNOMED CT :329933090 ) Name of Problem: Chronic anticoagulation ; Recorder: SANG RICO APRN; Confirmation: Confirmed ; Classification: Medical ; Code: 725408364 ; Contributor System: ContattaChart ; Last Updated: 04/10/2016 8:05 EDT ; Life Cycle Date: 04/10/2016 ; Life Cycle Status: Active ; Responsible Provider: SANG RICO APRN; Vocabulary: SNOMED CT Clotting disorder (SNOMED CT :538245364 ) Name of Problem: Clotting disorder ; Recorder: KENYON CHAMBERS RN; Confirmation: Confirmed ; Classification: Patient Stated ; Code: 165554374 ; Contributor System: ContattaChart ; Last Updated: 03/28/2014 19:29 EDT ; Life Cycle Date: 08/13/2013 ; Life Cycle Status: Active ; Vocabulary: SNOMED CT COPD (SNOMED CT :89863153 ) Name of Problem: COPD ; Recorder: KENYON CHAMBERS RN; Confirmation: Confirmed ; Classification: Medical ; Code: 33671057 ; Contributor System: ContattaChart ; Last Updated: 04/10/2016 8:03 EDT ; Life Cycle Date: 08/13/2013 ; Life Cycle Status: Active ; Vocabulary: SNOMED CT Coronary artery disease (SNOMED CT :2155939825 ) Name of Problem: Coronary artery disease ; Recorder: KENYON CHAMBERS RN; Confirmation: Confirmed ; Classification: Medical ; Code: 6372496615 ; Contributor System: ContattaChart ; Last Updated: 04/10/2016 8:03 EDT ; Life Cycle Date: 08/13/2013 ; Life Cycle Status: Active ; Vocabulary: SNOMED CT Diabetes mellitus (SNOMED CT :155785261 ) Name of Problem: Diabetes mellitus ; Recorder: KENYON CHAMBERS RN; Confirmation: Confirmed ; Classification: Medical ; Code: 792796215 ; Contributor System: ContattaChart ; Last Updated: 04/10/2016 8:04 EDT ; Life Cycle Date: 08/13/2013 ; Life Cycle Status: Active ; Vocabulary: SNOMED CT Emphysema (SNOMED CT :507537827 ) Name of Problem: Emphysema ; Recorder: JUAN LUIS GIL RN; Confirmation: Confirmed ; Classification: Medical ; Code: 409080745 ; Contributor System: PowerChart ; Last Updated: 11/12/2014 10:11 EST ; Life Cycle Date: 11/12/2014 ; Life Cycle Status: Active ; Vocabulary: SNOMED CT GERD - Gastro-esophageal reflux disease (SNOMED CT :6744324539 ) Name of Problem: GERD - Gastro-esophageal reflux disease ; Recorder: KENYON CHAMBERS RN; Confirmation: Confirmed ; Classification: Medical ; Code: 1867736387 ; Contributor System: PowerChart ; Last Updated: [...] Patient Care High blood pressure (SNOMED CT :04655113 ) Name of Problem: High blood pressure ; Recorder: KENYON CHAMBERS RN; Confirmation: Confirmed ; Classification: Medical ; Code: 50746772 ; Contributor System: PowerChart ; Last Updated: 04/10/2016 8:03 EDT ; Life Cycle Date: 08/13/2013 ; Life Cycle Status: Active ; Vocabulary: SNOMED CT History of obstructive sleep apnea (IMO :13506510 ) Name of Problem: History of obstructive sleep apnea ; Recorder: SYSTEM, SYSTEM; Confirmation: Confirmed ; Classification: Medical ; Code: 56173176 ; Last Updated: 08/25/2020 18:21 EST ; Life Cycle Date: 08/25/2020 ; Life Cycle Status: Active ; Vocabulary: IMO Hx of pulmonary embolus (SNOMED CT :593239283 ) Name of Problem: Hx of pulmonary embolus ; Recorder: SANG RICO APRN; Confirmation: Confirmed ; Classification: Medical ; Code: 346659740 ; Contributor System: PowerChart ; Last Updated: 04/10/2016 8:05 EDT ; Life Cycle Date: 04/10/2016 ; Life Cycle Status: Active ; Responsible Provider: SANG RICO APRN; Vocabulary: SNOMED CT Hyperlipidemia (SNOMED CT :13997270 ) Name of Problem: Hyperlipidemia ; Recorder: KENYON CHAMBERS RN; Confirmation: Confirmed ; Classification: Medical ; Code: 34100444 ; Contributor System: ContattaChart ; Last Updated: 04/10/2016 8:03 EDT ; Life Cycle Date: 08/13/2013 ; Life Cycle Status: Active ; Vocabulary: SNOMED CT Multiple renal cysts (SNOMED CT :397609161 ) Name of Problem: Multiple renal cysts ; Recorder: KENYON CHAMBERS RN; Confirmation: Confirmed ; Classification: Medical ; Code: 897222925 ; Contributor System: ContattaChart ; Last Updated: 04/10/2016 8:04 EDT ; Life Cycle Date: 08/13/2013 ; Life Cycle Status: Active ; Vocabulary: SNOMED CT Stented coronary artery (SNOMED CT :4938703248 ) Name of Problem: Stented coronary artery ; Recorder: KENYON CHAMBERS RN; Confirmation: Confirmed ; Classification: Medical ; Code: 9464069051 ; Contributor System: ContattaChart ; Last Updated: 04/10/2016 8:03 EDT ; Life Cycle Date: 08/13/2013 ; Life Cycle Status: Active ; Vocabulary: SNOMED CT Diagnoses(Active) Syncope/Near syncope Date: 03/16/2021 ; Diagnosis Type: Reason For Visit ; Confirmation: Complaint of ; Clinical Dx: Syncope/Near syncope ; Classification: Medical ; Clinical Service: Emergency medicine ; Code: PNED ; Probability: 0 ; Diagnosis Code: [id number] ED Height and Weight Height Source : Stated Height Entry Format : [place] Height, Feet : 5 ft(Converted to: 152 cm, 60 Inch) Height, Inches : 3 Inch(Converted to: 0 ft 3 Inch, 7.62 cm) Clinical Height : 160.02 cm Weight Source, ED : Critical estimated dosing weight Weight Entry Format : [place] Weight, Pounds : 158 lb Clinical Dosing Weight : 71.82 kg Body Surface Area (BSA) : 1.75 m2 Body Mass Index : 28 kg/m2 (HI) [place] Body Weight (IBW) : 52.02 kg NICOLE CHEN RN - 03/16/2021 11:32 EDT documented in this encounter Plan of Treatment Not on file documented as of this encounter Visit Diagnoses Not on filedocumented in this encounter Care Teams Operations Analyst Relationship Specialty Start Date End Date Jay Howell MD [address] [place] [phone] PCP - General Emergency Medicine 11/12/23 documented as of this encounter
--- OUTSIDE RECORDS SUMMARY | 2025-08-07 08:44 | XMS_ITS | Encounter Summary ---
Author Organization [employer] ([place], [place], [place], [place]) Address [address] [place] [address] Care Team Providers Care Associate Chemist Name Role Phone Jay Howell MD Primary Care Provider [phone] Encounter Details Date Type Department Care Team (Late st Contact Info) Description 03/16/2021 Transcribed Document [facility] [place] Family Medicine [address] [place] [address] ProviderJessie MD [address] [place], [place] [phone] Social History Tobacco Use Types Packs/Day Years [...] X1 Electronically signed by Gayle Finnegan Conversion Uniforms Sales Representative Cerner at 02/04/2023 2:00 PM CDT documented in this encounter Plan of Treatment Not on file documented as of this encounter Visit Diagnoses Not on filedocumented in this encounter Care Teams Associate Chemist Relationship Specialty Start Date End Date Jay Howell MD [address] [place] [phone] PCP - General Emergency Medicine 11/12/23 documented as of this encounter
--- OUTSIDE RECORDS SUMMARY | 2025-08-07 08:45 | XMS_ITS | Encounter Summary ---
Author Organization [employer] ([place], [place], [place], [place]) Address [address] [place] [address] Care Team Providers Care Paper Control Clerk Name Role Phone Jay Howell MD Primary Care Provider [phone] Encounter Details Date Type Department Care Team (Late st Contact Info) Description 06/13/2020 Transcribed Document [facility] [place] [address] [place] [address] ProviderJessie MD [address] [place] [address] Social History Tobacco Use Types Packs/Day Years [...] Ms. Montoya reported she would call for wharfmaster if/when she decides to complete one FARHANA PATEL - 06/13/2020 12:16 EDT Electronically signed by Gayle Finnegan Conversion Landfill Gas Collection Operator Cerner at 02/04/2023 2:16 PM CDT documented in this encounter Plan of Treatment Not on file documented as of this encounter Visit Diagnoses Not on filedocumented in this encounter Care Teams Paper Control Clerk Relationship Specialty Start Date End Date Jay Howell MD [address] [place] [phone] PCP - General Emergency Medicine 11/12/23 documented as of this encounter
--- OUTSIDE RECORDS SUMMARY | 2025-08-07 08:45 | XMS_ITS | Encounter Summary ---
Author Organization [employer] ([place], [place], [place], [place]) Address [address] [place] [address] Care Team Providers Care Water Hydrant Installer Name Role Phone Jay Howell MD Primary Care Provider [phone] Encounter Details Date Type Department Care Team (Late st Contact Info) Description 12/21/2018 Transcribed Document [facility] [place] Family Medicine [address] [place] [address] ProviderJessie MD [address] [place] [address] Social History Tobacco Use Types Packs/Day Years Used Date Smoking Tobacco: Never Assessed Comments Unknown Sex and Gender Information Value Date Recorded Sex Assigned at Not on file Legal Sex Female 7:30 PM CDT Gender Identity Not on file Sexual Orientation Not on file documented as of this encounter Miscellaneous Notes * Cerner Conversion Note - Jessie Yuen MD - 12/21/2018 11:50 AM CASE MANAGEMENT ASSISTANT Patient Education Materials Follows: Groin Site [...] 11/05/2011 Document Revised: 12/25/2012 Document Reviewed: 11/05/2011 [employer]? Patient Information ?2014 ip.access. Cardiovascular Coronary Artery Disease, Female Coronary artery [...] can cause a heart attack (myocardial infarction, HI). CAD is a leading cause of for [...] 12/25/2012 Document Revised: 03/10/2017 Document Reviewed: 02/04/2015 [employer] Interactive Patient Education ? 2017 [employer]. Nutrition Heart-Healthy Eating Plan Introduction Heart-healthy meal [...] What foods can I eat? GrainsBreads, including Burkinan, white, jie, wheat, raisin, rye, oatmeal, and Belgian. Tortillas that are neither fried nor made with lard or trans fat. Low-fat rolls, including hotdog and hamburger buns and Uzbek muffins. Biscuits. Muffins. Waffles. Pancakes. Light popcorn. Whole-grain cereals. Flatbread. [place] toast. Pretzels. Breadsticks. Rusks. Low-fat snacks. Low-fat [...] cottage cheese. Whole-milk cheeses, including blue (fredo), Mellette Armand, Brie, Nate, Singaporean, Havarti, Cambodian, cheddar, Camembert, and [place]. Whole or 2% milk that is liquid, [...] that has suet, meat fat, or shortening. [place] butter, hydrogenated oils, palm oil, coconut oil, [...] including vitamins, herbs, eye drops, creams, and dlbk-azo-ftgletz medicines. ??? Any problems you or family [...] 03/06/2014 Elsevier Interactive Patient Education ? 2017 [employer] documented in this encounter Plan of Treatment Not on file documented as of this encounter Visit Diagnoses Not on filedocumented in this encounter Care Teams Water Hydrant Installer Relationship Specialty Start Date End Date Jay Howell MD [address] [place] [phone] PCP - General Emergency Medicine 11/12/23 documented as of this encounter
--- OUTSIDE RECORDS SUMMARY | 2025-08-07 08:45 | XMS_ITS | Encounter Summary ---
Author Organization [employer] ([place], [place], [place], [place]) Address [address] [place] [address] Care Team Providers Care Traffic Worker Name Role Phone Jay Howell MD Primary Care Provider [phone] Encounter Details Date Type Department Care Team (Late st Contact Info) Description 06/12/2020 Transcribed Document [facility] [place] Family Medicine [address] [place] [address] ProviderJessie MD [address] [place] [address] Social History Tobacco Use Types Packs/Day Years [...] Communication Barrier : None Primary Language : Algerian Any Spiritual/Cultural Needs or Requests : No [...] filedocumented in this encounter Care Teams Traffic Worker Relationship Specialty Start Date End Date Jay Howell MD [address] [place] [phone] PCP - General Emergency Medicine 11/12/23 documented as of this encounter
--- OUTSIDE RECORDS SUMMARY | 2025-08-07 08:45 | XMS_ITS | Encounter Summary ---
Author Organization [employer] ([place], [place], [place], [place]) Address [address] [place] [address] Care Team Providers Care Banquet Houseperson Name Role Phone Jay Howell MD Primary Care Provider [phone] Encounter Details Date Type Department Care Team (Late st Contact Info) Description 06/12/2020 Transcribed Document [facility] [place] [address] [place] [address] ProviderJessie MD [address] [place] [address] Social History Tobacco Use Types Packs/Day Years [...] Years. Coronary artery bypass graft (SNOMED CT 916589169) in 1992 at 52 Years. femur repair. Appendectomy (SNOMED CT 517218400). uterine suspension. Hysterectomy (SNOMED CT 029419192). back surgury. Cholecystectomy (SNOMED CT 80915906). Hip replacement (SNOMED CT 5705998634). cataract surgury., Reviewed as documented in chart. [...] EDT Height Source Stated Height Entry Format [place] Height/Length, [place] (ft) 5 ft Height/Length [place] 3 Inch CLINICALHEIGHT 160.02 cm [place] Body Weight 52.02 kg Weight Source, ED Critical estimated dosing weight Weight Entry Format [place] Weight Setswana lb 161 lb CLINICALWEIGHT 73.18 kg Body [...] normal MD & QRS intervals, EP Interp. Electrocardiogram: Time [...] % 34.6 % Lymph # 1.99 x10(3)/uL [place] % 10.6 % HI [place] # 0.61 K/uL [place] % 2.1 % [...] type: Telemetry unit, Admitting: MARIA ELENA DAVALOS MD-[facility] . Counseled: Patient, Family, Regarding diagnosis, Regarding diagnostic results, Regarding treatment plan, Patient indicated understanding of instructions. Notes: Patient presents with hypertensive urgency and chest pain. Initial EKG and troponin negative. Blood pressure decreased after IV hydralazine, labetalol, and transdermal Nitropaste. Discussed with Dr. Davalos, hospitalist, he accepts admission for further evaluation and care.. Electronically signed by [facility] Conversion Air Route Traffic Controller Cerner at 02/04/2023 2:16 PM CDT documented in this encounter Plan of Treatment Not on file documented as of this encounter Visit Diagnoses Not on filedocumented in this encounter Care Teams Banquet Houseperson Relationship Specialty Start Date End Date Jay Howell MD [address] [place] [phone] PCP - General Emergency Medicine 11/12/23 documented as of this encounter
--- OUTSIDE RECORDS SUMMARY | 2025-08-07 08:45 | XMS_ITS | Encounter Summary ---
Author Organization [employer] ([place], [place], [place], [place]) Address [address] [place] [address] Care Team Providers Care Budget And Policy Analyst Name Role Phone Jay Howell MD Primary Care Provider [phone] Encounter Details Date Type Department Care Team (Late st Contact Info) Description 12/21/2018 Transcribed Document [facility] [place] Family Medicine [facility] [place] [address] ProviderJessie MD [address] [place] [address] Social History Tobacco Use Types Packs/Day Years Used Date Smoking Tobacco: Never Assessed Comments Unknown Sex and Gender Information Value Date Recorded Sex Assigned at Not on file Legal Sex Female 7:30 PM CDT Gender Identity Not on file Sexual Orientation Not on file documented as of this encounter Miscellaneous Notes * Cerner Conversion Note - Jessie Yuen MD - 12/21/2018 11:47 AM AUDIOVISUAL TECH [address] , [place], [place] [id number] Patient Copy Patient Information: Name: SKYLER MONTOYA Current Date: 12/21/2018 11:47:13 : 1940 Patient Address: [address] [place] [id number] Patient Attending Physician: FREDY YAÑEZ MD-CAR Primary Care Provider: TARA CHEN (REF), -MED Primary Care Provider Discharge Diagnosis: CAD (coronary artery disease); DM (diabetes mellitus); Exertional angina; HLD (hyperlipidemia); HTN (hypertension); Hx of CABG; DANTE (obstructive sleep apnea); Paroxysmal A-fib Weight on Admission: 158 lb, 0 oz Comment: Follow-up Instructions: With: Address: When: [facility] [address], [place] [address] Business (1) In 1 month 01/21/2019 With: Address: When: [facility] [address], [address] [place], [place] [id number] Business (1) Within 2 to 5 weeks [...] What foods can I eat? GrainsBreads, including English, white, jie, wheat, raisin, rye, oatmeal, and Khmer. Tortillas that are neither fried nor made with lard or trans fat. Low-fat rolls, including hotdog and hamburger buns and Armenian muffins. Biscuits. Muffins. Waffles. Pancakes. Light popcorn. Whole-grain cereals. Flatbread. Bono toast. Pretzels. Breadsticks. Rusks. Low-fat snacks. Low-fat [...] cottage cheese. Whole-milk cheeses, including blue (fredo), [place] Armand, Brie, Nate, Dutch, Havarti, Bolivian, cheddar, Camembert, and [place]. Whole or 2% milk that is liquid, [...] that has suet, meat fat, or shortening. Krypton butter, hydrogenated oils, palm oil, coconut oil, [...] can cause a heart attack (myocardial infarction, [place]). CAD is a leading cause of for [...] 12/25/2012 Document Revised: 03/10/2017 Document Reviewed: 02/04/2015 [employer] Interactive Patient Education ? 2017 [employer]. Groin Site Care Refer to this [...] Document Reviewed: 11/05/2011 ExitCare? Patient Information ?2013 JCD. Angiogram An angiogram, also called angiography, is [...] including vitamins, herbs, eye drops, creams, and wklw-deo-voqiukw medicines. ??? Any problems you or family [...] 03/06/2014 Elsevier Interactive Patient Education ? 2017 [employer]. Medication Leaflets: valsartan (elin LILY foster) [...] valsartan; ?? if you are on a sdd-cyze-wdhp; ?? if you are dehydrated; or ?? [...] may report side effects to FDA at 9-609-MFK-2533. What other drugs will affect valsartan? Tell [...] may interact with valsartan, including prescription and oezw-mvj-ixhdmwc medicines, vitamins, and herbal products. Not all [...] to ensure that the information provided by [employer]. ('Multum') is accurate, up-to-date, and complete, but no guarantee is made to that effect. Drug information contained herein may be time sensitive. [employer] information has been compiled for use by healthcare practitioners and consumers in the [place] and therefore [employer] does not warrant that uses outside of the [place] are appropriate, unless specifically indicated otherwise. [employer] drug information does not endorse drugs, diagnose patients or recommend therapy. [employer] drug information is an informational resource designed [...] effective or appropriate for any given patient. [facility] does not assume any responsibility for any aspect of healthcare administered with the aid of information [facility] provides. The information contained herein is not intended to cover all possible uses, directions, precautions, warnings, drug interactions, allergic reactions, or adverse effects. If you have questions about the drugs you are taking, check with your doctor, nurse or pharmacist. Copyright 2211-8449 [facility]. Version: 16.05. Revision Date: 09/08/2016. hydralazine (bob [...] may report side effects to FDA at 0-793-CRK-9219. What other drugs will affect hydralazine? Tell your doctor about all your current medicines and any you start or stop using, especially: ? diazoxide (an injectable blood pressure medication); or ?? an MAO inhibitor--isocarboxazid, linezolid, methylene blue injection, phenelzine, rasagiline, selegiline, tranylcypromine, and others. This list is not complete. Other drugs may interact with hydralazine, including prescription and syxl-bdb-dsngwek medicines, vitamins, and herbal products. Not all [...] to ensure that the information provided by [employer]. ('Multum') is accurate, up-to-date, and complete, but no guarantee is made to that effect. Drug information contained herein may be time sensitive. [employer] information has been compiled for use by healthcare practitioners and consumers in the [place] and therefore [employer] does not warrant that uses outside of the [place] are appropriate, unless specifically indicated otherwise. [employer]'s drug information does not endorse drugs, diagnose patients or recommend therapy. [employer] drug information is an informational resource designed [...] effective or appropriate for any given patient. [employer] does not assume any responsibility for any aspect of healthcare administered with the aid of information [employer] provides. The information contained herein is not intended to cover all possible uses, directions, precautions, warnings, drug interactions, allergic reactions, or adverse effects. If you have questions about the drugs you are taking, check with your doctor, nurse or pharmacist. Copyright 1391-6290 [employer]. Version: 5.01. Revision Date: 10/26/2017. amlodipine (am [...] may report side effects to FDA at 9-970-YYZ-0567. What other drugs will affect amlodipine? Tell your doctor about all your current medicines and any you start or stop using, especially: ? nitroglycerin; ?? simvastatin (Zocor, Simcor, Vytorin); or ?? any other heart or blood pressure medications. This list is not complete. Other drugs may interact with amlodipine, including prescription and dani-njq-rkdroew medicines, vitamins, and herbal products. Not all [...] to ensure that the information provided by [employer]. ('Multum') is accurate, up-to-date, and complete, but no guarantee is made to that effect. Drug information contained herein may be time sensitive. [employer] information has been compiled for use by healthcare practitioners and consumers in the [place] and therefore [employer] does not warrant that uses outside of the [place] are appropriate, unless specifically indicated otherwise. [employer] drug information does not endorse drugs, diagnose patients or recommend therapy. [employer] drug information is an informational resource designed [...] effective or appropriate for any given patient. [employer] does not assume any responsibility for any aspect of healthcare administered with the aid of information [employer] provides. The information contained herein is not intended to cover all possible uses, directions, precautions, warnings, drug interactions, allergic reactions, or adverse effects. If you have questions about the drugs you are taking, check with your doctor, nurse or pharmacist. Copyright 1115-3594 [employer]. Version: 14.. Revision Date: 01/24/2017. clopidogrel (kloe [...] may report side effects to FDA at 1-208-GXM-8544. What other drugs will affect clopidogrel? Certain other medicines may increase your risk of bleeding, including aspirin. Avoid taking aspirin unless your doctor tells you to. Tell your doctor about all your other medicines, especially: ? any other medicines to treat or prevent blood clots; ?? a stomach acid patch press operator such as omeprazole, Nexium, or Prilosec; ?? an antidepressant; ?? an opioid medication; ?? a blood thinner--warfarin, Coumadin, Jantoven; or ?? NSAIDs (nonsteroidal anti-inflammatory drugs)--ibuprofen (Advil, Motrin), naproxen (Aleve), celecoxib, diclofenac, indomethacin, meloxicam, and others. This list is not complete. Other drugs may affect clopidogrel, including prescription and uewg-kgd-cxumbnz medicines, vitamins, and herbal products. Not all [...] to ensure that the information provided by [employer]. ('Multum') is accurate, up-to-date, and complete, but no guarantee is made to that effect. Drug information contained herein may be time sensitive. [employer] information has been compiled for use by healthcare practitioners and consumers in the [place] and therefore [employer] does not warrant that uses outside of the [place] are appropriate, unless specifically indicated otherwise. [employer]'s drug information does not endorse drugs, diagnose patients or recommend therapy. [employer] drug information is an informational resource designed [...] effective or appropriate for any given patient. [employer] does not assume any responsibility for any aspect of healthcare administered with the aid of information Kit[employer] provides. The information contained herein is not intended to cover all possible uses, directions, precautions, warnings, drug interactions, allergic reactions, or adverse effects. If you have questions about the drugs you are taking, check with your doctor, nurse or pharmacist. Copyright 9785-6840 [employer]. Version: 15.01. Revision Date: 08/07/2018. ranolazine (ra [...] following drugs: ? clarithromycin; ?? nefazodone; ?? Hemet's wort; ?? antifungal medicine--itraconazole, ketoconazole; ?? HIV [...] may report side effects to FDA at 8-541-GMB-6714. What other drugs will affect ranolazine? Many [...] interact with ranolazine. This includes prescription and lgrg-urj-rrexsea medicines, vitamins, and herbal products. Give a [...] to ensure that the information provided by [employer]. ('Multum') is accurate, up-to-date, and complete, but no guarantee is made to that effect. Drug information contained herein may be time sensitive. [employer] information has been compiled for use by healthcare practitioners and consumers in the [place] and therefore [employer] does not warrant that uses outside of the [place] are appropriate, unless specifically indicated otherwise. [employer]'s drug information does not endorse drugs, diagnose patients or recommend therapy. [employer] drug information is an informational resource designed [...] effective or appropriate for any given patient. [employer] does not assume any responsibility for any aspect of healthcare administered with the aid of information Kitani provides. The information contained herein is not intended to cover all possible uses, directions, precautions, warnings, drug interactions, allergic reactions, or adverse effects. If you have questions about the drugs you are taking, check with your doctor, nurse or pharmacist. Copyright 7229-3749 [employer]. Version: 11.. Revision Date: 12/04/2015. CIGARETTE SMOKING: The facts are clear, cigarette smoking will shorten your life. Smoking can cause many illnesses along the way. As a healthcare provider, we recommend that you stop smoking. Assistance with quitting is available by contacting 4-528-DZFN-NOW. This is a free resource providing counseling, [...] Be sure to sign up for the [employer] patient portal, which gives you 09/05 access to your medical information ??? including these discharge instructions ??? using your computer, smartphone, or tablet. Just go to [facility] to get started. Questions? Call . [facility] would like to thank you for allowing us to assist you with your healthcare needs. MICHELE Skaggs JUDY D, (or credit representative) have received the above patient education materials/instructions and have verbalized understanding: Patient Signature _ Date/Time Patient Fan Installer Signature (if needed) Date/Time Clinician/Hospital Fan Installer Signature (if needed) Date/Time Electronically signed by [facility], [facility] Conversion Personal Property Appraiser Cerner at 02/04/2023 2:20 PM CDT documented in this encounter Plan of Treatment Not on file documented as of this encounter Visit Diagnoses Not on filedocumented in this encounter Care Teams Budget And Policy Analyst Relationship Specialty Start Date End Date Jay Howell MD [address] [place] [phone] PCP - General Emergency Medicine 11/12/23 documented as of this encounter
--- OUTSIDE RECORDS SUMMARY | 2025-08-07 08:45 | XMS_ITS | Encounter Summary ---
Author Organization [employer] ([place], [place], [place], [place]) Address [address] [place] [address] Care Team Providers Care Fire Marshal Refinery Name Role Phone Jay Howell MD Primary Care Provider [phone] Encounter Details Date Type Department Care Team (Late st Contact Info) Description 06/13/2020 Transcribed Document [facility] [place] [address] [place] [address] ProviderJessie MD [address] [place] [address] Social History Tobacco Use Types Packs/Day Years [...] 06/13/2020 2:31 EDT Electronically signed by Sivan [facility] Conversion Youth Corrections Officer Cerner at 02/04/2023 2:19 PM CDT documented in this encounter Plan of Treatment Not on file documented as of this encounter Visit Diagnoses Not on filedocumented in this encounter Care Teams Fire Marshal Refinery Relationship Specialty Start Date End Date Jay Howell MD [address] [place] [phone] PCP - General Emergency Medicine 11/12/23 documented as of this encounter
--- OUTSIDE RECORDS SUMMARY | 2025-08-07 08:45 | XMS_ITS | Encounter Summary ---
Author Organization [employer] ([place], [place], [place], [place]) Address [address] [place] [address] Care Team Providers Care Tieing Machine Operator Name Role Phone Jay Howell MD Primary Care Provider [phone] Encounter Details Date Type Department Care Team (Late st Contact Info) Description 06/13/2020 Transcribed Document [facility] [place] Family Medicine [address] [place] [address] ProviderJessie MD [address] [place] [address] Social History Tobacco Use Types Packs/Day Years [...] Insurance 1 Health Plan: MEDICARE Policy Number: [id number] Authorization Number: Insurance 2 Health Plan: AARP N Policy Number: [id number] Authorization Number: Insurance Primary Name : MEDICARE Policy Number: [id number] Authorized Service Begin Date-Primary : 06/12/2020 EDT Historical Authorization Comments-Primary : No Authorization Comments Found MARILYNN RAMÍREZ, RN-Utilization Review - 06/13/2020 9:06 EDT Electronically signed by Sivan [facility] Conversion University Relations Vice President Cerner at 02/04/2023 2:21 PM CDT documented in this encounter Plan of Treatment Not on file documented as of this encounter Visit Diagnoses Not on filedocumented in this encounter Care Teams Tieing Machine Operator Relationship Specialty Start Date End Date Jay Howell MD [address] [place] [phone] PCP - General Emergency Medicine 11/12/23 documented as of this encounter
--- OUTSIDE RECORDS SUMMARY | 2025-08-07 08:45 | XMS_ITS | Encounter Summary ---
Author Organization [employer] ([place], [place], [place], [place]) Address [address] [place] [address] Care Team Providers Care Asparagus Buncher Name Role Phone Jay Howell MD Primary Care Provider [phone] Encounter Details Date Type Department Care Team (Late st Contact Info) Description 06/13/2020 Transcribed Document [facility] [place] [address] [place] [address] ProviderJessie MD [address] [place] [address] Social History Tobacco Use Types [...] Problem list: Medical Arthritis / SNOMED CT 8060928 / Confirmed Atrial fibrillation with RVR / SNOMED CT 4640265271 / Confirmed Cataract / Patient Care / Confirmed Chest pain / SNOMED CT 63036481 / Complaint of COPD / SNOMED CT 66034753 / Confirmed Coronary artery disease / SNOMED CT 0481046015 / Confirmed Diabetes mellitus / SNOMED CT 159815809 / Confirmed GERD - Gastro-esophageal reflux disease / SNOMED CT 2968271138 / Confirmed Glaucoma / Patient Care / Confirmed Chronic anticoagulation / SNOMED CT 845006937 / Confirmed Hx of pulmonary embolus / SNOMED CT 892847439 / Confirmed High blood pressure / SNOMED CT 07411893 / Confirmed History of obstructive sleep apnea / IMO 75600474 / Confirmed Hyperlipidemia / SNOMED CT 06434284 / Confirmed Multiple renal cysts / SNOMED CT 794803803 / Confirmed Emphysema / SNOMED CT 079346316 / Confirmed Apnea, sleep / SNOMED CT 811343893 / Confirmed Stented coronary artery / SNOMED CT 1986182695 / Confirmed UTI - Urinary tract infection / SNOMED CT 4550761739 / Confirmed, Active Problems (21) Apnea, sleep [...] and time 36mins Electronically signed by Interface, [facility] Conversion P 3 Armament/Ordnance Ima Technician Cerner at 02/04/2023 2:21 PM CDT documented in this encounter Plan of Treatment Not on file documented as of this encounter Visit Diagnoses Not on filedocumented in this encounter Care Teams Asparagus Buncher Relationship Specialty Start Date End Date Jay Howell MD [address] [place] [phone] PCP - General Emergency Medicine 11/12/23 documented as of this encounter
--- OUTSIDE RECORDS SUMMARY | 2025-08-07 08:45 | XMS_ITS | Encounter Summary ---
Author Organization [employer] ([place], [place], [place], [place]) Address [address] [place] [address] Care Team Providers Care Pin Game Machine Inspector Name Role Phone Jay Howell MD Primary Care Provider [phone] Encounter Details Date Type Department Care Team (Late st Contact Info) Description 06/12/2020 Transcribed Document [facility] [place] [address] [place] [address] ProviderJessie MD [address] [place] [address] Social History Tobacco Use Types Packs/Day Years Used Date Smoking Tobacco: Never Assessed Comments Unknown Sex and Gender Information Value Date Recorded Sex Assigned at Not on file Legal Sex Female 7:30 PM CDT Gender Identity Not on file Sexual Orientation Not on file documented as of this encounter Miscellaneous Notes * Cerner Conversion Note - Jessie ProviderMD - 06/12/2020 9:23 PM CDT [place] Suicide Severity Rating Scale (C-SSRS) Entered On: 06/12/2020 22:56 EDT Performed On: 06/12/2020 22:00 EDT by NICOLE BYERS RN [place] Suicide Severity Rating Scale (C-SSRS) CSSRS Past [...] filedocumented in this encounter Care Teams Pin Game Machine Inspector Relationship Specialty Start Date End Date Jay Howell MD [address] [place] [phone] PCP - General Emergency Medicine 11/12/23 documented as of this encounter
--- OUTSIDE RECORDS SUMMARY | 2025-08-07 08:45 | XMS_ITS | Encounter Summary ---
Author Organization [id number] ([place], [place], [place], [place]) Address [address] [place] [address] Care Team Providers Care Career Center Advisor Name Role Phone Jay Howell MD Primary Care Provider [phone] Encounter Details Date Type Department Care Team (Late st Contact Info) Description 06/13/2020 Transcribed Document [facility] [place] Family Medicine [address] [place] [address] ProviderJessie MD [address] [place] [address] Social History Tobacco Use Types Packs/Day Years [...] filedocumented in this encounter Care Teams Career Center Advisor Relationship Specialty Start Date End Date Jay Howell MD [address] [place] [phone] PCP - General Emergency Medicine 11/12/23 documented as of this encounter
--- OUTSIDE RECORDS SUMMARY | 2025-08-07 08:45 | XMS_ITS | Encounter Summary ---
Author Organization [employer] ([place], [place], [place], [place]) Address [address] [place] [address] Care Team Providers Care Utility Lineman Name Role Phone Jay Howell MD Primary Care Provider [phone] Encounter Details Date Type Department Care Team (Late st Contact Info) Description 06/12/2020 Transcribed Document [facility] [place] [address] [place] [address] ProviderJessie MD [address] [place] [address] Social History Tobacco Use Types Packs/Day Years [...] : 2 - Emergent Tracking Group : [facility] ED Roni Peralta RN - 06/12/2020 [...] 21:35:03 EDT) Problems(Active) Apnea, sleep (SNOMED CT :501810782 ) Name of Problem: Apnea, sleep ; Recorder: JUAN LUIS GIL RN; Confirmation: Confirmed ; Classification: Medical ; Code: [id number] ; Contributor System: PowerChart ; Last Updated: 11/12/2014 10:12 EST ; Life Cycle Date: 11/12/2014 ; Life Cycle Status: Active ; Vocabulary: SNOMED CT Arthritis (SNOMED CT :9952361 ) Name of Problem: Arthritis ; Recorder: KENYON CHAMBERS RN; Confirmation: Confirmed ; Classification: Medical ; Code: 2552765 ; Contributor System: PowerChart ; Last Updated: 04/10/2016 8:04 EDT ; Life Cycle Date: 08/13/2013 ; Life Cycle Status: Active ; Vocabulary: SNOMED CT Atrial fibrillation with RVR (SNOMED CT :7826543977 ) Name of Problem: Atrial fibrillation with RVR ; Recorder: SANG RICO APRN; Confirmation: Confirmed ; Classification: Medical ; Code: [id number] ; Contributor System: PowerChart ; Last Updated: 04/10/2016 8:05 EDT ; Life Cycle Date: 04/10/2016 ; Life Cycle Status: Active ; Responsible Provider: SANG RICO APRN; Vocabulary: SNOMED CT Blood clot (SNOMED CT :979567727 ) Name of Problem: Blood clot ; Recorder: KENYON CHAMBERS RN; Confirmation: Confirmed ; Classification: Patient Stated ; Code: 147051357 ; Contributor System: PowerChart ; Last Updated: [...] Vocabulary: Patient Care Chest pain (SNOMED CT :60648619 ) Name of Problem: Chest pain ; Recorder: SANG RICO APRN; Confirmation: Complaint of ; Classification: Medical ; Code: 55647549 ; Contributor System: PowerChart ; Last Updated: 04/10/2016 8:05 EDT ; Life Cycle Status: Active ; Responsible Provider: SANG RICO APRN; Vocabulary: SNOMED CT Chronic anticoagulation (SNOMED CT :986574849 ) Name of Problem: Chronic anticoagulation ; Recorder: SANG RICO APRN; Confirmation: Confirmed ; Classification: Medical ; Code: 538163846 ; Contributor System: PowerChart ; Last Updated: 04/10/2016 8:05 EDT ; Life Cycle Date: 04/10/2016 ; Life Cycle Status: Active ; Responsible Provider: SANG RICO APRN; Vocabulary: SNOMED CT Clotting disorder (SNOMED CT :976138700 ) Name of Problem: Clotting disorder ; Recorder: KENYON CHAMBERS RN; Confirmation: Confirmed ; Classification: Patient Stated ; Code: 547774540 ; Contributor System: PowerChart ; Last Updated: 03/28/2014 19:29 EDT ; Life Cycle Date: 08/13/2013 ; Life Cycle Status: Active ; Vocabulary: SNOMED CT COPD (SNOMED CT :51048220 ) Name of Problem: COPD ; Recorder: KENYON CHAMBERS RN; Confirmation: Confirmed ; Classification: Medical ; Code: 99419395 ; Contributor System: PowerChart ; Last Updated: 04/10/2016 8:03 EDT ; Life Cycle Date: 08/13/2013 ; Life Cycle Status: Active ; Vocabulary: SNOMED CT Coronary artery disease (SNOMED CT :6828573292 ) Name of Problem: Coronary artery disease ; Recorder: KENYON CHAMBERS RN; Confirmation: Confirmed ; Classification: Medical ; Code: 7531367832 ; Contributor System: PowerChart ; Last Updated: 04/10/2016 8:03 EDT ; Life Cycle Date: 08/13/2013 ; Life Cycle Status: Active ; Vocabulary: SNOMED CT Diabetes mellitus (SNOMED CT :132109634 ) Name of Problem: Diabetes mellitus ; Recorder: KENYON CHAMBERS RN; Confirmation: Confirmed ; Classification: Medical ; Code: 080826815 ; Contributor System: PowerChart ; Last Updated: 04/10/2016 8:04 EDT ; Life Cycle Date: 08/13/2013 ; Life Cycle Status: Active ; Vocabulary: SNOMED CT Emphysema (SNOMED CT :020525011 ) Name of Problem: Emphysema ; Recorder: JUAN LUIS GIL RN; Confirmation: Confirmed ; Classification: Medical ; Code: 271393379 ; Contributor System: PowerChart ; Last Updated: 11/12/2014 10:11 EST ; Life Cycle Date: 11/12/2014 ; Life Cycle Status: Active ; Vocabulary: SNOMED CT GERD - Gastro-esophageal reflux disease (SNOMED CT :1809757980 ) Name of Problem: GERD - Gastro-esophageal reflux disease ; Recorder: KENYON CHAMBERS RN; Confirmation: Confirmed ; Classification: Medical ; Code: 4152870276 ; Contributor System: PowerChart ; Last Updated: [...] Patient Care High blood pressure (SNOMED CT :19524779 ) Name of Problem: High blood pressure ; Recorder: KENYON CHAMBERS RN; Confirmation: Confirmed ; Classification: Medical ; Code: 35829194 ; Contributor System: PowerChart ; Last Updated: 04/10/2016 8:03 EDT ; Life Cycle Date: 08/13/2013 ; Life Cycle Status: Active ; Vocabulary: SNOMED CT History of obstructive sleep apnea (IMO :40862258 ) Name of Problem: History of obstructive sleep apnea ; Recorder: SYSTEM, SYSTEM; Confirmation: Confirmed ; Classification: Medical ; Code: 28387128 ; Last Updated: 12/20/2018 12:01 EST ; Life Cycle Date: 12/20/2018 ; Life Cycle Status: Active ; Vocabulary: IMO Hx of pulmonary embolus (SNOMED CT :463095330 ) Name of Problem: Hx of pulmonary embolus ; Recorder: SANG RICO APRN; Confirmation: Confirmed ; Classification: Medical ; Code: 989721496 ; Contributor System: PowerChart ; Last Updated: 04/10/2016 8:05 EDT ; Life Cycle Date: 04/10/2016 ; Life Cycle Status: Active ; Responsible Provider: SANG RICO APRN; Vocabulary: SNOMED CT Hyperlipidemia (SNOMED CT :32809804 ) Name of Problem: Hyperlipidemia ; Recorder: KENYON CHAMBERS RN; Confirmation: Confirmed ; Classification: Medical ; Code: 79076856 ; Contributor System: JumbasChart ; Last Updated: 04/10/2016 8:03 EDT ; Life Cycle Date: 08/13/2013 ; Life Cycle Status: Active ; Vocabulary: SNOMED CT Multiple renal cysts (SNOMED CT :212872397 ) Name of Problem: Multiple renal cysts ; Recorder: KENYON CHAMBERS RN; Confirmation: Confirmed ; Classification: Medical ; Code: 937636044 ; Contributor System: PowerChart ; Last Updated: 04/10/2016 8:04 EDT ; Life Cycle Date: 08/13/2013 ; Life Cycle Status: Active ; Vocabulary: SNOMED CT Stented coronary artery (SNOMED CT :5079669819 ) Name of Problem: Stented coronary artery ; Recorder: KENYON CHAMBERS RN; Confirmation: Confirmed ; Classification: Medical ; Code: 2454043335 ; Contributor System: PowerChart ; Last Updated: 04/10/2016 8:03 EDT ; Life Cycle Date: 08/13/2013 ; Life Cycle Status: Active ; Vocabulary: SNOMED CT UTI - Urinary tract infection (SNOMED CT :4568746943 ) Name of Problem: UTI - Urinary tract infection ; Recorder: KENYON CHAMBERS RN; Confirmation: Confirmed ; Classification: Medical ; Code: 7420844669 ; Contributor System: PowerChart ; Last Updated: 04/10/2016 8:04 EDT ; Life Cycle Date: 08/13/2013 ; Life Cycle Status: Active ; Vocabulary: SNOMED CT Diagnoses(Active) Chest pain Date: 06/12/2020 ; Diagnosis Type: Reason For Visit ; Confirmation: Complaint of ; Clinical Dx: Chest pain ; Classification: Medical ; Clinical Service: Emergency medicine ; Code: PNED ; Probability: 0 ; Diagnosis Code: [id number] ED Height and Weight Height Source : Stated Height Entry Format : [place] Height, Feet : 5 ft(Converted to: 152 cm, 60 Inch) Height, Inches : 3 Inch(Converted to: 0 ft 3 Inch, 7.62 cm) Clinical Height : 160.02 cm Weight Source, ED : Critical estimated dosing weight Weight Entry Format : [place] Weight, Pounds : 161 lb Clinical Dosing Weight : 73.18 kg Body Surface Area (BSA) : 1.77 m2 Body Mass Index : 28.6 kg/m2 (HI) [place] Body Weight (IBW) : 52.02 kg Roni Peralta RN - 06/12/2020 21:31 EDT documented in this encounter Plan of Treatment Not on file documented as of this encounter Visit Diagnoses Not on filedocumented in this encounter Care Teams Utility Lineman Relationship Specialty Start Date End Date Jay Howell MD [address] [place] [phone] PCP - General Emergency Medicine 11/12/23 documented as of this encounter
--- OUTSIDE RECORDS SUMMARY | 2025-08-07 08:45 | XMS_ITS | Encounter Summary ---
Author Organization [employer] ([place], [place], [place], [place]) Address [address] [place] [address] Care Team Providers Care Supervisor Park Workers Name Role Phone Jay Howell MD Primary Care Provider [phone] Encounter Details Date Type Department Care Team (Late st Contact Info) Description 06/13/2020 Transcribed Document [facility] [place] [address] [place] [address] ProviderJessie MD [address] [place] [address] Social History Tobacco Use Types Packs/Day Years [...] RAMÍREZ, RN-Utilization Review - 06/13/2020 15:38 EDT documented in this encounter Plan of Treatment Not on file documented as of this encounter Visit Diagnoses Not on filedocumented in this encounter Care Teams Supervisor Park Workers Relationship Specialty Start Date End Date Jay Howell MD [address] [place] [phone] PCP - General Emergency Medicine 11/12/23 documented as of this encounter
--- OUTSIDE RECORDS SUMMARY | 2025-08-07 08:45 | XMS_ITS | Encounter Summary ---
Author Organization [employer] ([place], [place], [place], [place]) Address [address] [place] [address] Care Team Providers Care Parts Sales Associate Name Role Phone Jay Howell MD Primary Care Provider [phone] Encounter Details Date Type Department Care Team (Late st Contact Info) Description 06/13/2020 Transcribed Document [facility] [place] [address] [place] [address] ProviderJessie MD [address] [place] [address] Social History Tobacco Use Types [...] in this encounter Care Teams Parts Sales Associate Relationship Specialty Start Date End Date Jay Howell MD [address] [place] [phone] PCP - General Emergency Medicine 11/12/23 documented as of this encounter
--- OUTSIDE RECORDS SUMMARY | 2025-08-07 08:45 | XMS_ITS | Encounter Summary ---
Author Organization [employer] ([place], [place], [place], [place]) Address [address] [place] [address] Care Team Providers Care Dessert Cup Machine Feeder Name Role Phone Jay Howell MD Primary Care Provider [phone] Encounter Details Date Type Department Care Team (Late st Contact Info) Description 06/13/2020 Transcribed Document [facility] [place] [address] [place] [address] ProviderJessie MD [address] [place] [address] Social History Tobacco Use Types Packs/Day Years [...] PharmD student Luis Manuel Briones PharmD, BCPS [phone] Electronically signed by [facility] Conversion Psychological Operations Officer Cerner at 02/04/2023 2:11 PM CDT documented in this encounter Plan of Treatment Not on file documented as of this encounter Visit Diagnoses Not on filedocumented in this encounter Care Teams Dessert Cup Machine Feeder Relationship Specialty Start Date End Date Jay Howell MD [address] [place] [phone] PCP - General Emergency Medicine 11/12/23 documented as of this encounter
--- OUTSIDE RECORDS SUMMARY | 2025-08-07 08:45 | XMS_ITS | Encounter Summary ---
Author Organization [employer] ([place], [place], [place], [place]) Address [address] [place] [address] Care Team Providers Care Retail Specialist Name Role Phone Jay Howell MD Primary Care Provider [phone] Encounter Details Date Type Department Care Team (Late st Contact Info) Description 06/13/2020 Transcribed Document [facility] [place] [address] [place] [address] ProviderJessie MD [address] [place] [address] Social History Tobacco Use Types Packs/Day Years [...] Tobacco Cues : Verbalizes understanding Activities to [place] With Smoking Urges : Verbalizes understanding Basic [...] filedocumented in this encounter Care Teams Retail Specialist Relationship Specialty Start Date End Date Jay Howell MD [address] [place] [phone] PCP - General Emergency Medicine 11/12/23 documented as of this encounter
--- OUTSIDE RECORDS SUMMARY | 2025-08-07 08:45 | XMS_ITS | Encounter Summary ---
Author Organization [employer] ([place], [place], [place], [place]) Address [address] [place] [address] Care Team Providers Care Fabrication Operator Name Role Phone Jay Howell MD Primary Care Provider [phone] Encounter Details Date Type Department Care Team (Late st Contact Info) Description 12/21/2018 Transcribed Document [facility] [place] [address] [place] [address] ProviderJessie MD [address] [place] [address] Social History Tobacco Use Types Packs/Day Years Used Date Smoking Tobacco: Never Assessed Comments Unknown Sex and Gender Information Value Date Recorded Sex Assigned at Not on file Legal Sex Female 7:30 PM CDT Gender Identity Not on file Sexual Orientation Not on file documented as of this encounter Miscellaneous Notes * Cerner Conversion Note - Jessie ProviderMD - 12/21/2018 11:46 AM [facility] GENER[facility] Nursing Discharge Summary Entered On: 12/21/2018 11:46 [...] - 12/21/2018 11:46 EST Electronically signed by [facility] Conversion Marine Mechanic Cerner at 02/04/2023 2:08 PM CDT documented in this encounter Plan of Treatment Not on file documented as of this encounter Visit Diagnoses Not on filedocumented in this encounter Care Teams Fabrication Operator Relationship Specialty Start Date End Date Jay Howell MD [address] [place] [phone] PCP - General Emergency Medicine 11/12/23 documented as of this encounter
--- OUTSIDE RECORDS SUMMARY | 2025-08-07 08:45 | XMS_ITS | Encounter Summary ---
Author Organization [employer] ([place], [place], [place], [place]) Address [address] [place] [address] Care Team Providers Care Web Application Dev Specialist Name Role Phone Jay Howell MD Primary Care Provider [phone] Encounter Details Date Type Department Care Team (Late st Contact Info) Description 06/13/2020 Transcribed Document [facility] [place] [address] [place] [address] ProviderJessie MD [address] [place] [address] Social History Tobacco Use Types Packs/Day Years [...] NICOLE BYERS RN - 06/13/2020 1:41 EDT Electronically signed by Gayle Finnegan Conversion Telecommunications Line Installer Cerner at 02/04/2023 2:14 PM CDT documented in this encounter Plan of Treatment Not on file documented as of this encounter Visit Diagnoses Not on filedocumented in this encounter Care Teams Web Application Dev Specialist Relationship Specialty Start Date End Date Jay Howell MD [address] [place] [phone] PCP - General Emergency Medicine 11/12/23 documented as of this encounter
--- OUTSIDE RECORDS SUMMARY | 2025-08-07 08:45 | XMS_ITS | Encounter Summary ---
Author Organization [employer] ([place], [place], [place], [place]) Address [address] [place] [address] Care Team Providers Care Travel Occupational Therapist Name Role Phone Jay Howell MD Primary Care Provider [phone] Encounter Details Date Type Department Care Team (Late st Contact Info) Description 06/13/2020 Transcribed Document [facility] [place] [address] [place] [address] ProviderJessie MD [address] [place] [address] Social History Tobacco Use Types Packs/Day Years [...] 06/13/2020 9:00 EDT by Joya Amaya [facility] Phone Call for Consults Consult Phone Call/Page Attempt : First call Consult Reason : chest pain Physician Requesting Consult : SMILEY ZAMORA MD Physician Requested for Consult : FREDY YAÑEZ MD-CAR Provider Service Notified Name : Cardiology Physician Covering for Consult : FREDY YAÑEZ MD-CAR Date and Time Call Returned : 06/13/2020 9:31 EDT Joya Amaya [facility] - 06/13/2020 10:00 EDT documented in this encounter Plan of Treatment Not on file documented as of this encounter Visit Diagnoses Not on filedocumented in this encounter Care Teams Travel Occupational Therapist Relationship Specialty Start Date End Date Jay Howell MD [address] [place] [phone] PCP - General Emergency Medicine 11/12/23 documented as of this encounter
--- OUTSIDE RECORDS SUMMARY | 2025-08-07 08:46 | XMS_ITS | Encounter Summary ---
Author Organization [employer] [place] [address] Care Team Providers Care Assistant Mechanic Name Role Phone No Pcp, Per Patient Primary Care Provider Evelyne prabhakar Reason for Visit * Reason Onset Date Comments Appointment Needed 06/28/2025 Encounter Details Date Type Department Care Team (Late st Contact Info) Description 06/28/2025 Telephone [facility] [address] [place] [address] Sukh Garner, DO [address], [place] [id number] Appointment Needed Social History Tobacco Use Types Packs/Day Years Used Date Smoking Tobacco: Former Cigarettes Q uit: 1991 Passive Smoke Exposure: Past Smokeless Tobacco: Never Alcohol Use Standard Drinks/Week Comments Not Currently 0 (1 standard drink = 0.6 oz pur e alcohol) [facility] Utilities Answer Date Recorded In the past 12 months has [employer] electric, gas, oil, or water company threatened to shut off services in your home? No 06/23/2025 Overall Financial Resource Strain (CARDIA) Answe r Date Recorded How hard is it for you to pa y for the very basics like food, housing, medical care, and heating? Not very hard 06/23/2025 PHQ-2 Answer Date Recorded PHQ-2 Total Score 0 06/23/2025 [facility] [place] [facility] Occupat ional [facility] - Occupational Stress [...] get more. Never true 06/23/2025 [facility] IP Transportation Answer D ate Recorded [...] book for HFU until August Appointment [facility]: [facility] Call back number: [phone] (sister, goes by Sarah) documented in this encounter Plan of Treatment Upcoming Encounters Date Type Department Care Team (Late st Contact Info) Description 08/19/2025 2:00 PM EST Office Visit [facility] [address] [place] [address] Drive [address] [place] [address] Vargas Wolf MD [address] [place] [phone] documented as of this encounter Visit Diagnoses Not on filedocumented in this encounter Additional Health Concerns Infection Onset Date Last Indicated Resolved Time ESBL organism Comment:ESBL urine: 05/23, 06/1205/23/2025 06/12/2025 Assessment Noted Time A fall risk assessment has been complete d for the patient 02/08/2025 11:32 AM EDT documented as of this encounter Care Teams Assistant Mechanic Relationship Specialty Start Date End Date No Pcp, Per Patient PCP - General 06/04/24 documented as of this encounter
--- OUTSIDE RECORDS SUMMARY | 2025-08-07 08:47 | XMS_ITS | Encounter Summary ---
Author Organization [employer] ([place], [place], [place], [place]) Address [address] [place] [address] Care Team Providers Care Various Exceptionalities Teacher Name Role Phone Jay Howell MD Primary Care Provider [phone] Encounter Details Date Type Department Care Team (Late st Contact Info) Description 06/13/2020 Transcribed Document [facility] [place] [address] [place] [address] Jessie Yuen MD [address] [place] [address] Social History Tobacco Use Types Packs/Day Years [...] Chart was reviewed. Time spent, 55 minutes. /[id number] MD MCKAY Priest/NABOR / MCKAY / BONILLAL CC: Dr. Avtar Moeller Electronically signed by [facility] Conversion Phlebotomy Support Tech Cerner at 02/04/2023 2:09 PM CDT documented in this encounter Plan of Treatment Not on file documented as of this encounter Visit Diagnoses Not on filedocumented in this encounter Care Teams Various Exceptionalities Teacher Relationship Specialty Start Date End Date Jay Howell MD [address] [place] [phone] PCP - General Emergency Medicine 11/12/23 documented as of this encounter
--- OUTSIDE RECORDS SUMMARY | 2025-08-07 08:47 | XMS_ITS | Clinical Summary ---
Author Organization [facility] Address [address] [place] [place] [address] Phone Care Team Providers Care Skeins Yarn Examiner Name Role Phone No Pcp, Per Patient Primary Care Provider Evelyne prabhakar Allergies Active Allergy Reactions Criticality Noted Date Comments Lidocaine Rash High 06/05/2024 Morphine Other (See Comments) 03/02/2024 Nitrofurantoin Rash High 03/02/2024 Medications acetaminophen (TYLENOL) 500 mg Oral Tablet Take 1,000 mg by mouth every 6 hours. 4 Active Calcium Carbonate (ANTACID ULTRA STRENGTH) 400 mg calcium (1,000 mg) Oral Tablet, Chewable Take 1,000 mg by mouth daily. 4 Active cyanocobalamin 1,000 mcg Oral Tablet Take 1,000 mcg by mouth daily. Active polyethylene glycol (GLYCOLAX, MIRALAX) 17 gram Oral Powder in Packet Take 17 g by mouth daily. 4 Active ranolazine (RANEXA) 500 mg Oral Tablet Sustained Release 12 hr Take 1,000 mg by mouth daily. 9 Active atorvastatin (LIPITOR) 40 mg Oral Tablet Take 40 mg by mouth nightly. Active nalOXone (NARCAN) 4 mg/actuation Nasl [place], Non-Aerosol 0.1 mL by Nasal route as needed for Opioid Reversal. [place] the contents of one device (0.1mL) into one nostril upon signs of opioid overdose. Call 911. May repeat dose in other nostril if no response within 2-3 minutes. 1 Each 5 Active pantoprazole (PROTONIX) 40 mg Oral Tablet, Delayed Release (E.C.) Take 1 Tablet by mouth 2 times daily. 60 Tablet 5 Active nortriptyline (PAMELOR) 10 mg Oral Capsule Take 1 Capsule by mouth nightly. 15 Capsule 5 Active latanoprost (XALATAN) 0.005 % Opht Drops Apply 1 Drop to eye nightly. 2.5 mL 5 Active lidocaine (ASPERCREME) 4 % Top Adhesive Patch, Medicated Place 1 Patch onto the skin daily. 15 Patch 5 Active dorzolamide-niels oloL (COSOPT) 22.3-6.8 mg/mL Opht Drops Place 1 Drop into both eyes nightly. instill 1 drop in both eyes at bedtime for glaucoma Active losartan (COZAAR) 25 mg Oral Tablet Take 1 Tablet by mouth daily for 30 days. 30 Tablet 5 Active fUROsemide (LASIX) 40 mg Oral Tablet Take 1 Tablet by mouth daily for 30 days. 30 Tablet 5 08/05/20 25 levETIRAcetam (KEPPRA) 750 mg Oral Tablet Take 1 Tablet by mouth 2 times daily for 30 days. 60 Tablet 5 07/28/20 25 metoprolol (LOPRESSOR) 25 mg Oral Tablet Take 1 Tablet by mouth 2 times daily for 30 days. 60 Tablet 5 07/28/20 25 Active Problems Problem Noted Date Diagnosed Date [...] (06/09/2025 11:10 AM EDT): - transferred to [facility] 05/26 with hypotension and hypoxia - pulm edema on cxr - echo with EF 55-60%, indeterminate diastolic function, pulm pressure 41 mmHg - diuresis Assessment & Plan (06/08/2025 11:33 AM EDT): - transferred to [facility] 05/26 with hypotension and hypoxia - pulm edema on cxr - echo with EF 55-60%, indeterminate diastolic function, pulm pressure 41 mmHg - diuresis Assessment & Plan (06/07/2025 12:27 PM EDT): - transferred to [facility] 05/26 with hypotension and hypoxia - pulm edema on cxr - echo with EF 55-60%, indeterminate diastolic function, pulm pressure 41 mmHg - diuresis Assessment & Plan (06/06/2025 3:47 PM EDT): - transferred to [facility] 05/26 with hypotension and hypoxia - pulm edema on cxr - echo with EF 55-60%, indeterminate diastolic function, pulm pressure 41 mmHg - diuresis Assessment & Plan (06/05/2025 12:46 PM EDT): - transferred to [facility] 8/10 with hypotension and hypoxia - pulm edema on cxr - echo with EF 55-60%, indeterminate diastolic function, pulm pressure 41 mmHg - diuresis Assessment & Plan (06/04/2025 1:59 PM EDT): - transferred to [facility] 8/10 with hypotension and hypoxia - pulm edema on cxr - echo with EF 55-60%, indeterminate diastolic function, pulm pressure 41 mmHg - diuresis Assessment & Plan (06/03/2025 7:21 AM EDT): - transferred to [facility] 8/ with hypotension and hypoxia - pulm edema on cxr - echo with EF 55-60%, indeterminate diastolic function, pulm pressure 41 mmHg - diurese as below Assessment & Plan (06/02/2025 9:53 AM EDT): - transferred to [facility] 8/ with hypotension and hypoxia - pulm edema on cxr - echo with EF 55-60%, indeterminate diastolic function, pulm pressure 41 mmHg - diurese as below Assessment & Plan (06/01/2025 9:51 AM EDT): - transferred to [facility] 8/ with hypotension and hypoxia - pulm edema on cxr - echo with EF 55-60%, indeterminate diastolic function, pulm pressure 41 mmHg - limited diuresis due to below - on RA now Assessment & Plan (05/31/2025 8:02 AM EDT): - transferred to [facility] 8/ with hypotension and hypoxia - pulm edema on cxr - echo with EF 55-60%, indeterminate diastolic function, pulm pressure 41 mmHg - limited diuresis due to below - remains on 2L now Assessment & Plan (05/30/2025 11:39 AM EDT): - transferred to [facility] 8/ with hypotension and hypoxia - [...] 12:27 PM EDT): - transferred to [facility] 8/10 with hypotension and hypoxia - pulm edema on cxr - echo with EF 55-60%, indeterminate diastolic function, pulm pressure 41 mmHg - diuresis Assessment & Plan (06/06/2025 3:47 PM EDT): - transferred to [facility] 8/10 [...] 7:21 AM EDT): - transferred to [facility] 8/ [...] 8:02 AM EDT): - transferred to [facility] 05/26 [...] pain remains an issue. No better with HUMAN DEVELOPMENT PROFESSOR. Will stop that and adjust prns Assessment [...] - vascular consulted - MRI L foot 7 with mild marrow edema of metatarsal distal stump margins without evidence of osteomyelitis - Angiogram performed, minimal blood flow past the knee, recommend AKA but pt declining -Pain control [facility]gonig [facility] Assessment & Plan (05/14/2025 2:51 PM [...] pain remains an issue. No better with HUMAN DEVELOPMENT PROFESSOR. Will stop that and adjust prns Assessment [...] - vascular consulted - MRI L foot 7 with mild [...] direction Exostosis of toe 01/19/2025 Atherosclerosis of [place] artery of extremity Constipation 01/15/2025 Assessment & [...] arterial studies 7/17 with significant PAD - INK MAKER stenosis Patent popliteal and TPT with severe stenosis Patent proximal DIRECTOR INTERNAL COMMUNICATIONS but occluded distally without reconstitution Patent DAREN with multifocal severe stenosis, occlusion at the level of the ankle and no distal reconstitution Significant small vessel disease in L foot Assessment & Plan (05/19/2025 11:25 AM EDT): History of angiogram 01/2025. - vascular consulted - arterial studies 7/17 with significant PAD - INK MAKER stenosis Patent popliteal and TPT with severe stenosis Patent proximal DIRECTOR INTERNAL COMMUNICATIONS but occluded distally without reconstitution Patent DAREN with multifocal severe stenosis, occlusion at the level of the ankle and no distal reconstitution Significant small vessel disease in L foot Assessment & Plan (05/18/2025 8:38 AM EDT): History of angiogram 01/2025. - vascular consulted - arterial studies 7/17 with significant PAD - INK MAKER stenosis Patent popliteal and TPT with severe stenosis Patent proximal DIRECTOR INTERNAL COMMUNICATIONS but occluded distally without reconstitution Patent DAREN with multifocal severe stenosis, occlusion at the level of the ankle and no distal reconstitution Significant small vessel disease in L foot Assessment & Plan (05/17/2025 9:16 AM EDT): History of angiogram 01/2025. - vascular consulted - arterial studies 7/17 with significant PAD - INK MAKER stenosis Patent popliteal and TPT with severe stenosis Patent proximal DIRECTOR INTERNAL COMMUNICATIONS but occluded distally without reconstitution Patent DAREN with multifocal severe stenosis, occlusion at the level of the ankle and no distal reconstitution Significant small vessel disease in L foot Assessment & Plan (05/16/2025 2:50 PM EDT): History of angiogram 01/2025. - vascular consulted - arterial studies 7/17 with significant PAD - INK MAKER stenosis Patent popliteal and TPT with severe stenosis Patent proximal DIRECTOR INTERNAL COMMUNICATIONS but occluded distally without reconstitution Patent DAREN with multifocal severe stenosis, occlusion at the level of the ankle and no distal reconstitution Significant small vessel disease in L foot Assessment & Plan (05/15/2025 2:22 PM EDT): History of angiogram 01/2025. - vascular consulted - arterial studies 7/17 with significant PAD - INK MAKER stenosis Patent popliteal and TPT with severe stenosis Patent proximal DIRECTOR INTERNAL COMMUNICATIONS but occluded distally without reconstitution Patent DAREN with multifocal severe stenosis, occlusion at the level of the ankle and no distal reconstitution Significant small vessel disease in L foot Assessment & Plan (05/14/2025 10:10 AM EDT): History of angiogram 01/2025. - vascular consulted - arterial studies 7/17 with significant PAD - INK MAKER stenosis Patent popliteal and TPT with severe stenosis Patent proximal DIRECTOR INTERNAL COMMUNICATIONS but occluded distally without reconstitution Patent DAREN with multifocal severe stenosis, occlusion at the level of the ankle and no distal reconstitution Significant small vessel disease in L foot Assessment & Plan (05/13/2025 9:08 AM EDT): History of angiogram 01/2025. - vascular consulted - arterial studies 7/17 with significant PAD - INK MAKER stenosis Patent popliteal and TPT with severe stenosis Patent proximal DIRECTOR INTERNAL COMMUNICATIONS but occluded distally without reconstitution Patent DAREN with multifocal severe stenosis, occlusion at the level of the ankle and no distal reconstitution Significant small vessel disease in L foot Assessment & Plan (05/12/2025 10:17 AM EDT): History of angiogram 01/2025. - vascular consulted - arterial studies 7/17 with significant PAD - INK MAKER stenosis Patent popliteal and TPT with severe stenosis Patent proximal DIRECTOR INTERNAL COMMUNICATIONS but occluded distally without reconstitution Patent DAREN with multifocal severe stenosis, occlusion at the level of the ankle and no distal reconstitution Significant small vessel disease in L foot Assessment & Plan (05/11/2025 11:59 AM EDT): History of angiogram 01/2025. - vascular consulted - arterial studies 7/17 with significant PAD - INK MAKER stenosis Patent popliteal and TPT with severe stenosis Patent proximal DIRECTOR INTERNAL COMMUNICATIONS but occluded distally without reconstitution Patent DAREN [...] April 10, undergoing now - continue lipitor Assessment & Plan [...] Plan (05/23/2025 11:46 AM EDT): - Echo 2024 normal EF. - Euvolemic on exam Assessment & Plan (05/22/2025 10:29 AM EDT): - Echo 2023 normal EF. - Euvolemic on exam Assessment & Plan (05/21/2025 1:15 PM EDT): - Echo 2023 normal EF. - Euvolemic on exam Assessment & Plan (05/20/2025 12:54 PM EDT): Echo 2023 normal EF. Euvolemic on exam - monitor I/O, daily weights - diuresis: DIRECTOR INTERNAL COMMUNICATIONS lasix on hold - DIRECTOR INTERNAL COMMUNICATIONS coreg -Stable 05/20/25 Assessment & Plan (05/19/2025 11:25 AM EDT): Echo 2023 normal EF. Euvolemic on exam - monitor I/O, daily weights - diuresis: DIRECTOR INTERNAL COMMUNICATIONS lasix on hold - DIRECTOR INTERNAL COMMUNICATIONS coreg -Stable 05/19/25 Assessment & Plan (05/18/2025 8:38 AM EDT): Echo 2023 normal EF. Euvolemic on exam - monitor I/O, daily weights - diuresis: DIRECTOR INTERNAL COMMUNICATIONS lasix on hold - DIRECTOR INTERNAL COMMUNICATIONS coreg -Stable 05/18/25 Assessment & Plan (05/17/2025 9:16 AM EDT): Echo 2023 normal EF. Euvolemic on exam - monitor I/O, daily weights - diuresis: DIRECTOR INTERNAL COMMUNICATIONS lasix on hold - DIRECTOR INTERNAL COMMUNICATIONS coreg -Stable 05/17/25 Assessment & Plan (05/16/2025 2:50 PM EDT): Echo 2023 normal EF. Euvolemic on exam - monitor I/O, daily weights - diuresis: DIRECTOR INTERNAL COMMUNICATIONS lasix on hold - DIRECTOR INTERNAL COMMUNICATIONS coreg -Stable 05/16/25 Assessment & Plan (05/15/2025 2:22 PM EDT): Echo 2023 normal EF. Euvolemic on exam - monitor I/O, daily weights - diuresis: DIRECTOR INTERNAL COMMUNICATIONS lasix on hold - DIRECTOR INTERNAL COMMUNICATIONS coreg -Stable 05/15/25 Assessment & Plan (05/14/2025 2:51 PM EDT): Echo 2023 normal EF. Euvolemic on exam - monitor I/O, daily weights - diuresis: DIRECTOR INTERNAL COMMUNICATIONS lasix on hold - DIRECTOR INTERNAL COMMUNICATIONS coreg -Stable 05/14/25 Assessment & Plan (05/13/2025 9:08 AM EDT): Echo 2023 normal EF. Euvolemic on exam - monitor I/O, daily weights - diuresis: DIRECTOR INTERNAL COMMUNICATIONS lasix on hold - DIRECTOR INTERNAL COMMUNICATIONS coreg Assessment & Plan (05/12/2025 10:17 AM EDT): Echo 2023 normal EF. Euvolemic on exam - monitor I/O, daily weights - diuresis: DIRECTOR INTERNAL COMMUNICATIONS lasix on hold - DIRECTOR INTERNAL COMMUNICATIONS coreg Assessment & Plan (05/11/2025 7:12 AM EDT): Echo 2023 normal EF. Euvolemic on exam - monitor I/O, daily weights - diuresis: DIRECTOR INTERNAL COMMUNICATIONS lasix on hold - DIRECTOR INTERNAL COMMUNICATIONS coreg Assessment & Plan (05/10/2025 1:54 PM EDT): Echo 2023 normal EF. Euvolemic on exam - monitor I/O, daily weights - diuresis: DIRECTOR INTERNAL COMMUNICATIONS lasix on hold - DIRECTOR INTERNAL COMMUNICATIONS coreg Assessment & Plan (05/09/2025 7:00 AM EDT): Echo 2023 normal EF. Euvolemic on exam - monitor I/O, daily weights - diuresis: DIRECTOR INTERNAL COMMUNICATIONS lasix on hold - DIRECTOR INTERNAL COMMUNICATIONS coreg Assessment & Plan (05/08/2025 6:56 AM EDT): Echo 2023 normal EF. Euvolemic on exam - monitor I/O, daily weights - diuresis: DIRECTOR INTERNAL COMMUNICATIONS lasix on hold - DIRECTOR INTERNAL COMMUNICATIONS coreg Assessment & Plan (05/07/2025 7:10 AM EDT): Echo 2023 normal EF. Euvolemic on exam - monitor I/O, daily weights - diuresis: DIRECTOR INTERNAL COMMUNICATIONS lasix on hold - DIRECTOR INTERNAL COMMUNICATIONS coreg Assessment & Plan (05/06/2025 9:31 AM EDT): Echo 2023 normal EF. Euvolemic on exam - monitor I/O, daily weights - diuresis: DIRECTOR INTERNAL COMMUNICATIONS lasix on hold - DIRECTOR INTERNAL COMMUNICATIONS coreg Assessment & Plan (05/05/2025 1:00 PM EDT): Echo 2023 normal EF. Euvolemic on exam - monitor I/O, daily weights - diuresis: DIRECTOR INTERNAL COMMUNICATIONS lasix on hold - DIRECTOR INTERNAL COMMUNICATIONS coreg Assessment & Plan (05/05/2025 12:57 PM EDT): Echo 2023 normal EF. Euvolemic on exam - monitor I/O, daily weights - diuresis: DIRECTOR INTERNAL COMMUNICATIONS lasix on hold - DIRECTOR INTERNAL COMMUNICATIONS coreg Assessment & Plan (05/03/2025 6:33 PM EDT): 2023 normal EF Compensated 05/03/2025 Assessment & Plan (05/02/2025 5:52 PM EDT): 2023 normal EF Compensated 05/02/2025 Assessment & Plan (05/01/2025 5:56 PM EDT): 2023 normal EF Compensated Assessment & Plan (04/30/2025 8:21 PM EDT): 2023 normal EF Compensated Assessment & Plan [...] Plan (01/15/2025 6:29 AM EDT): -- Lasix DIRECTOR INTERNAL COMMUNICATIONS. Continued -- appears compensated >> stable Assessment & Plan (01/15/2025 6:21 AM EDT): -- Lasix DIRECTOR INTERNAL COMMUNICATIONS. Continued -- appears compensated Assessment & Plan (01/15/2025 6:10 AM EDT): -- Lasix DIRECTOR INTERNAL COMMUNICATIONS. 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 Not on AC d/t hx of SAH - DIRECTOR INTERNAL COMMUNICATIONS coreg - cardiac monitoring -Rate controlled 05/20/25 Assessment & Plan (05/19/2025 11:25 AM EDT): Heart rate controlled. Not on AC d/t hx of SAH - DIRECTOR INTERNAL COMMUNICATIONS coreg - cardiac monitoring -Rate controlled 05/19/25 Assessment & Plan (05/18/2025 8:38 AM EDT): Heart rate controlled. Not on AC d/t hx of SAH - DIRECTOR INTERNAL COMMUNICATIONS coreg - cardiac monitoring -Rate controlled 05/18/25 Assessment & Plan (05/17/2025 9:16 AM EDT): Heart rate controlled. Not on AC d/t hx of SAH - DIRECTOR INTERNAL COMMUNICATIONS coreg - cardiac monitoring -Rate controlled 05/17/25 Assessment & Plan (05/16/2025 2:50 PM EDT): Heart rate controlled. Not on AC d/t hx of SAH - DIRECTOR INTERNAL COMMUNICATIONS coreg - cardiac monitoring -Rate controlled 05/16/25 Assessment & Plan (05/15/2025 2:22 PM EDT): Heart rate controlled. Not on AC d/t hx of SAH - DIRECTOR INTERNAL COMMUNICATIONS coreg - cardiac monitoring -Heart rate 94 Assessment & Plan (05/14/2025 10:10 AM EDT): Heart rate controlled. Not on AC d/t hx of SAH - DIRECTOR INTERNAL COMMUNICATIONS coreg - cardiac monitoring -Heart rate 94 Assessment & Plan (05/13/2025 1:41 PM EDT): Heart rate controlled. Not on AC d/t hx of SAH - DIRECTOR INTERNAL COMMUNICATIONS coreg - cardiac monitoring -Heart rate 94 Assessment & Plan (05/12/2025 10:17 AM EDT): Heart rate controlled. Not on AC d/t hx of SAH - DIRECTOR INTERNAL COMMUNICATIONS coreg - cardiac monitoring -Heart rate 83 Assessment & Plan (05/11/2025 11:59 AM EDT): Heart rate controlled. Not on AC d/t hx of SAH - DIRECTOR INTERNAL COMMUNICATIONS coreg - cardiac monitoring -Heart rate 98 Assessment & Plan (05/10/2025 1:54 PM EDT): Heart rate controlled. Not on AC d/t hx of SAH - DIRECTOR INTERNAL COMMUNICATIONS coreg - cardiac monitoring -Heart rate 83 Assessment & Plan (05/09/2025 10:25 AM EDT): Heart rate controlled. Not on AC d/t hx of SAH - DIRECTOR INTERNAL COMMUNICATIONS coreg - cardiac monitoring -Heart rate 75 Assessment & Plan (05/08/2025 1:05 PM EDT): Heart rate controlled. Not on AC d/t hx of SAH - DIRECTOR INTERNAL COMMUNICATIONS coreg - cardiac monitoring -Heart rate 80 Assessment & Plan (05/07/2025 2:02 PM EDT): Heart rate controlled. Not on AC d/t hx of SAH - DIRECTOR INTERNAL COMMUNICATIONS coreg - cardiac monitoring -Heart rate 81 Assessment & Plan (05/06/2025 9:31 AM EDT): Heart rate controlled. Not on AC d/t hx of SAH - DIRECTOR INTERNAL COMMUNICATIONS coreg - cardiac monitoring Assessment & Plan (05/05/2025 1:00 PM EDT): Heart rate controlled. Not on AC d/t hx of SAH - DIRECTOR INTERNAL COMMUNICATIONS coreg - cardiac monitoring Assessment & Plan (05/05/2025 12:57 PM EDT): Heart rate controlled. Not on AC d/t hx of SAH - DIRECTOR INTERNAL COMMUNICATIONS coreg - cardiac monitoring Assessment & Plan [...] (01/15/2025 6:29 AM EDT): -- Coreg, ASA DIRECTOR INTERNAL COMMUNICATIONS. Continued -- Not on anticoagulation due to his history of subarachnoid hemorrhage and fall risk -- In and out of atrial fibrillation. Assessment & Plan (01/15/2025 6:21 AM EDT): -- Coreg, ASA DIRECTOR INTERNAL COMMUNICATIONS. Continued -- Not on anticoagulation due to his history of subarachnoid hemorrhage and fall risk -- In and out of atrial fibrillation. Assessment & Plan (01/15/2025 6:10 AM EDT): -- Coreg, ASA DIRECTOR INTERNAL COMMUNICATIONS. Continued -- Not on anticoagulation due to his history of subarachnoid hemorrhage and fall risk -- In and out of atrial fibrillation. Assessment & Plan (01/12/2025 10:29 PM EDT): -- Coreg, ASA DIRECTOR INTERNAL COMMUNICATIONS Carotid stenosis, symptomatic w/o infarct, bilat eral 04/28/2023 Overview (01/12/2025): Last Assessment & Plan: Carotid duplex from 05/10/2023- bilateral carotid artery stenosis (50-69%). A referral to CT surgery was sent by Shannon Flor APRN at last office visit. She is scheduled to see Dr. Alcantara on 06/06/2023. Assessment & Plan (01/28/2025 9:59 AM EDT): -- ASA, Lipitor DIRECTOR INTERNAL COMMUNICATIONS. Continued. Following Assessment & Plan (01/27/2025 2:14 PM EDT): -- ASA, Lipitor DIRECTOR INTERNAL COMMUNICATIONS. Continued. Following Assessment & Plan (01/26/2025 12:09 PM EDT): -- ASA, Lipitor DIRECTOR INTERNAL COMMUNICATIONS. Continued. Following Assessment & Plan (01/25/2025 12:22 PM EDT): -- ASA, Lipitor DIRECTOR INTERNAL COMMUNICATIONS. Continued. Following Assessment & Plan (01/24/2025 9:38 AM EDT): -- ASA, Lipitor DIRECTOR INTERNAL COMMUNICATIONS. Continued. Following Assessment & Plan (01/23/2025 1:07 PM EDT): -- ASA, Lipitor DIRECTOR INTERNAL COMMUNICATIONS. Continued. Following Assessment & Plan (01/22/2025 10:03 AM EDT): -- ASA, Lipitor DIRECTOR INTERNAL COMMUNICATIONS. Continued. Following Assessment & Plan (01/21/2025 12:19 PM EDT): -- ASA, Lipitor DIRECTOR INTERNAL COMMUNICATIONS. Continued. Following Assessment & Plan (01/20/2025 2:21 PM EDT): -- ASA, Lipitor DIRECTOR INTERNAL COMMUNICATIONS. Continued. Following Assessment & Plan (01/19/2025 1:36 PM EDT): -- ASA, Lipitor DIRECTOR INTERNAL COMMUNICATIONS. Continued. Following Assessment & Plan (01/18/2025 1:04 PM EDT): -- ASA, Lipitor DIRECTOR INTERNAL COMMUNICATIONS. Continued. Following Assessment & Plan (01/17/2025 1:00 PM EDT): -- ASA, Lipitor DIRECTOR INTERNAL COMMUNICATIONS. Continued. Following Assessment & Plan (01/16/2025 9:59 AM EDT): -- ASA, Lipitor DIRECTOR INTERNAL COMMUNICATIONS. Continued. Following Assessment & Plan (01/15/2025 11:35 AM EDT): -- ASA, Lipitor DIRECTOR INTERNAL COMMUNICATIONS. Continued. Following Assessment & Plan (01/15/2025 6:29 AM EDT): -- ASA, Lipitor DIRECTOR INTERNAL COMMUNICATIONS. Continued Assessment & Plan (01/15/2025 6:21 AM EDT): -- ASA, Lipitor DIRECTOR INTERNAL COMMUNICATIONS Assessment & Plan (01/15/2025 6:10 AM EDT): -- ASA, Lipitor DIRECTOR INTERNAL COMMUNICATIONS Assessment & Plan (01/12/2025 10:29 PM EDT): -- ASA, Lipitor DIRECTOR INTERNAL COMMUNICATIONS Coronary arteriosclerosis in [place] artery // Hx of CABG 04/09/2016 Overview [...] AM EDT): -- Coreg, Lipitor, ASA, [place] DIRECTOR INTERNAL COMMUNICATIONS. Continued Assessment & Plan (01/15/2025 6:21 AM EDT): -- Coreg, Lipitor, ASA, [place] DIRECTOR INTERNAL COMMUNICATIONS. Continued Assessment & Plan (01/15/2025 6:10 AM EDT): -- Coreg, Lipitor, ASA, [place] DIRECTOR INTERNAL COMMUNICATIONS. Continued -- CP -- Cardiology consulted -- [...] PM EDT): -- Coreg, Lipitor, ASA, [place] DIRECTOR INTERNAL COMMUNICATIONS Secondary open-angle glaucoma of right eye, ileana re stage 12/09/2015 Type 2 diabetes mellitus, wi thout long-term current use of insulin 12/09/2015 Overview [...] PM EDT): Last A1c 4.8 in 03/2024. DIRECTOR INTERNAL COMMUNICATIONS meds include none. - hold off on FSBS, correctional algorithm - rpt A1c 5.3 - stable 05/20/25 Assessment & Plan (05/19/2025 3:11 PM EDT): Last A1c 4.8 in 03/2024. DIRECTOR INTERNAL COMMUNICATIONS meds include none. - hold off on FSBS, correctional algorithm - rpt A1c 5.3 - stable 05/19/25 Assessment & Plan (05/18/2025 8:38 AM EDT): Last A1c 4.8 in 03/2024. DIRECTOR INTERNAL COMMUNICATIONS meds include none. - hold off on FSBS, correctional algorithm - rpt A1c 5.3 Assessment & Plan (05/17/2025 9:16 AM EDT): Last A1c 4.8 in 03/2024. DIRECTOR INTERNAL COMMUNICATIONS meds include none. - hold off on FSBS, correctional algorithm - rpt A1c 5.3 Assessment & Plan (05/16/2025 2:50 PM EDT): Last A1c 4.8 in 03/2024. DIRECTOR INTERNAL COMMUNICATIONS meds include none. - hold off on FSBS, correctional algorithm - rpt A1c 5.3 Assessment & Plan (05/15/2025 2:22 PM EDT): Last A1c 4.8 in 03/2024. DIRECTOR INTERNAL COMMUNICATIONS meds include none. - hold off on FSBS, correctional algorithm - rpt A1c 5.3 Assessment & Plan (05/14/2025 10:10 AM EDT): Last A1c 4.8 in 03/2024. DIRECTOR INTERNAL COMMUNICATIONS meds include none. - hold off on FSBS, correctional algorithm - rpt A1c 5.3 Assessment & Plan (05/13/2025 9:08 AM EDT): Last A1c 4.8 in 03/2024. DIRECTOR INTERNAL COMMUNICATIONS meds include none. - hold off on FSBS, correctional algorithm - rpt A1c 5.3 Assessment & Plan (05/12/2025 10:17 AM EDT): Last A1c 4.8 in 03/2024. DIRECTOR INTERNAL COMMUNICATIONS meds include none. - hold off on FSBS, correctional algorithm - rpt A1c 5.3 Assessment & Plan (05/11/2025 7:12 AM EDT): Last A1c 4.8 in 03/2024. DIRECTOR INTERNAL COMMUNICATIONS meds include none. - hold off on FSBS, correctional algorithm - rpt A1c 5.3 Assessment & Plan (05/10/2025 1:54 PM EDT): Last A1c 4.8 in 03/2024. DIRECTOR INTERNAL COMMUNICATIONS meds include none. - hold off on FSBS, correctional algorithm - rpt A1c 5.3 Assessment & Plan (05/09/2025 7:00 AM EDT): Last A1c 4.8 in 03/2024. DIRECTOR INTERNAL COMMUNICATIONS meds include none. - hold off on FSBS, correctional algorithm - rpt A1c 5.3 Assessment & Plan (05/08/2025 6:56 AM EDT): Last A1c 4.8 in 03/2024. DIRECTOR INTERNAL COMMUNICATIONS meds include none. - hold off on FSBS, correctional algorithm - rpt A1c 5.3 Assessment & Plan (05/07/2025 7:10 AM EDT): Last A1c 4.8 in 03/2024. DIRECTOR INTERNAL COMMUNICATIONS meds include none. - hold off on FSBS, correctional algorithm - rpt A1c 5.3 Assessment & Plan (05/06/2025 9:31 AM EDT): Last A1c 4.8 in 03/2024. DIRECTOR INTERNAL COMMUNICATIONS meds include none. - hold off on FSBS, correctional algorithm - rpt A1c 5.3 Assessment & Plan (05/05/2025 1:00 PM EDT): Last A1c 4.8 in 03/2024. DIRECTOR INTERNAL COMMUNICATIONS meds include none. - hold off on FSBS, correctional algorithm - note metformin started - will stop given plans for angiogram this week - rpt A1c ordered Assessment & Plan (05/05/2025 12:57 PM EDT): Last A1c 4.8 in 03/2024. DIRECTOR INTERNAL COMMUNICATIONS meds include none. - hold off on FSBS, correctional algorithm - note metformin started - will stop given plans for angiogram this week - rpt A1c Assessment & Plan (05/03/2025 6:33 PM EDT): Cont sea captain metformin Refusing SSI Assessment & Plan (05/02/2025 5:52 PM EDT): Cont sea captain metformin Refusing SSI Assessment & Plan (05/01/2025 5:56 PM EDT): Cont sea captain metformin Refusing SSI Mixed hyperlipidemia 09/30/2014 Overview (06/04/2024): Outpatient management Outpatient management Assessment & Plan (01/28/2025 9:59 AM EDT): -- Lipitor DIRECTOR INTERNAL COMMUNICATIONS. Continued home meds Assessment & Plan (01/27/2025 2:14 PM EDT): -- Lipitor DIRECTOR INTERNAL COMMUNICATIONS. Continued home meds Assessment & Plan (01/26/2025 12:09 PM EDT): -- Lipitor DIRECTOR INTERNAL COMMUNICATIONS. Continued home meds Assessment & Plan (01/25/2025 12:22 PM EDT): -- Lipitor DIRECTOR INTERNAL COMMUNICATIONS. Continued home meds Assessment & Plan (01/24/2025 9:38 AM EDT): -- Lipitor DIRECTOR INTERNAL COMMUNICATIONS. Continued home meds Assessment & Plan (01/23/2025 1:07 PM EDT): -- Lipitor DIRECTOR INTERNAL COMMUNICATIONS. Continued home meds Assessment & Plan (01/22/2025 10:03 AM EDT): -- Lipitor DIRECTOR INTERNAL COMMUNICATIONS. Continued home meds Assessment & Plan (01/21/2025 12:19 PM EDT): -- Lipitor DIRECTOR INTERNAL COMMUNICATIONS. Continued home meds Assessment & Plan (01/20/2025 2:21 PM EDT): -- Lipitor DIRECTOR INTERNAL COMMUNICATIONS. Continued home meds Assessment & Plan (01/19/2025 1:36 PM EDT): -- Lipitor DIRECTOR INTERNAL COMMUNICATIONS. Continued home meds Assessment & Plan (01/18/2025 1:04 PM EDT): -- Lipitor DIRECTOR INTERNAL COMMUNICATIONS. Continued home meds Assessment & Plan (01/17/2025 1:00 PM EDT): -- Lipitor DIRECTOR INTERNAL COMMUNICATIONS. Continued home meds Assessment & Plan (01/16/2025 9:59 AM EDT): -- Lipitor DIRECTOR INTERNAL COMMUNICATIONS. Continued home meds Assessment & Plan (01/15/2025 11:35 AM EDT): -- Lipitor DIRECTOR INTERNAL COMMUNICATIONS. Continued home meds Assessment & Plan (01/15/2025 6:29 AM EDT): -- Lipitor DIRECTOR INTERNAL COMMUNICATIONS. Continued Assessment & Plan (01/15/2025 6:21 AM EDT): -- Lipitor DIRECTOR INTERNAL COMMUNICATIONS Assessment & Plan (01/15/2025 6:10 AM EDT): -- Lipitor DIRECTOR INTERNAL COMMUNICATIONS Assessment & Plan (01/12/2025 10:29 PM EDT): -- Lipitor DIRECTOR INTERNAL COMMUNICATIONS Hypertension associated with diabetes 09/30/2014 Overview (06/04/2024): [...] (05/20/2025 12:54 PM EDT): Well controlled. - DIRECTOR INTERNAL COMMUNICATIONS coreg - monitor and adjust as needed -BP stable 05/20/25 Assessment & Plan (05/19/2025 11:25 AM EDT): Well controlled. - DIRECTOR INTERNAL COMMUNICATIONS coreg - monitor and adjust as needed -BP stable 05/19/25 Assessment & Plan (05/18/2025 8:38 AM EDT): Well controlled. - DIRECTOR INTERNAL COMMUNICATIONS coreg - monitor and adjust as needed -BP stable 05/18/25 Assessment & Plan (05/17/2025 9:16 AM EDT): Well controlled. - DIRECTOR INTERNAL COMMUNICATIONS coreg - monitor and adjust as needed -BP stable 05/17/25 Assessment & Plan (05/16/2025 2:50 PM EDT): Well controlled. - DIRECTOR INTERNAL COMMUNICATIONS coreg - monitor and adjust as needed -BP stable 05/16/25 Assessment & Plan (05/15/2025 2:22 PM EDT): Well controlled. - DIRECTOR INTERNAL COMMUNICATIONS coreg - monitor and adjust as needed -BP stable 05/15/25 Assessment & Plan (05/14/2025 2:51 PM EDT): Well controlled. - DIRECTOR INTERNAL COMMUNICATIONS coreg - monitor and adjust as needed -BP stable 05/14/25 Assessment & Plan (05/13/2025 1:41 PM EDT): Well controlled. - DIRECTOR INTERNAL COMMUNICATIONS coreg - monitor and adjust as needed -Blood pressure 113/46 Assessment & Plan (05/12/2025 10:17 AM EDT): Well controlled. - DIRECTOR INTERNAL COMMUNICATIONS coreg - monitor and adjust as needed -Blood pressure 122/57 Assessment & Plan (05/11/2025 7:12 AM EDT): Well controlled. - DIRECTOR INTERNAL COMMUNICATIONS coreg - monitor and adjust as needed -Blood pressure 116/76 Assessment & Plan (05/10/2025 1:54 PM EDT): Well controlled. - DIRECTOR INTERNAL COMMUNICATIONS coreg - monitor and adjust as needed -Blood pressure 116/76 Assessment & Plan (05/09/2025 10:25 AM EDT): Well controlled. - DIRECTOR INTERNAL COMMUNICATIONS coreg - monitor and adjust as needed -Blood pressure 128/66 Assessment & Plan (05/08/2025 1:05 PM EDT): Well controlled. - DIRECTOR INTERNAL COMMUNICATIONS coreg - monitor and adjust as needed -Blood pressure 124/66 Assessment & Plan (05/07/2025 7:10 AM EDT): Well controlled. - DIRECTOR INTERNAL COMMUNICATIONS coreg - monitor and adjust as needed Assessment & Plan (05/06/2025 9:31 AM EDT): Well controlled. - DIRECTOR INTERNAL COMMUNICATIONS coreg - monitor and adjust as needed Assessment & Plan (05/05/2025 1:00 PM EDT): Well controlled. - DIRECTOR INTERNAL COMMUNICATIONS coreg - monitor and adjust as needed Assessment & Plan (05/05/2025 12:57 PM EDT): Well controlled. - DIRECTOR INTERNAL COMMUNICATIONS coreg - monitor and adjust as needed [...] Plan (01/20/2025 2:21 PM EDT): -- Coreg DIRECTOR INTERNAL COMMUNICATIONS. Continued -- In acceptable range. Stable. BP Readings from Last 1 Encounters: 01/20/25 109/62 Assessment & Plan (01/19/2025 1:36 PM EDT): -- Coreg DIRECTOR INTERNAL COMMUNICATIONS. Continued -- In acceptable range. Stable. BP Readings from Last 1 Encounters: 01/19/25 100/42 Assessment & Plan (01/18/2025 1:04 PM EDT): -- Coreg DIRECTOR INTERNAL COMMUNICATIONS. Continued -- In acceptable range. Stable. BP Readings from Last 1 Encounters: 01/18/25 106/41 Assessment & Plan (01/17/2025 1:00 PM EDT): -- Coreg DIRECTOR INTERNAL COMMUNICATIONS. Continued -- In acceptable range. Stable. BP Readings from Last 1 Encounters: 01/17/25 119/46 Assessment & Plan (01/16/2025 9:59 AM EDT): -- Coreg DIRECTOR INTERNAL COMMUNICATIONS. Continued -- In acceptable range. Stable. BP Readings from Last 1 Encounters: 01/16/25 144/54 Assessment & Plan (01/15/2025 11:35 AM EDT): -- Coreg DIRECTOR INTERNAL COMMUNICATIONS. Continued -- In acceptable range BP Readings from Last 1 Encounters: 01/15/25 125/54 Assessment & Plan (01/15/2025 6:29 AM EDT): -- Coreg DIRECTOR INTERNAL COMMUNICATIONS. Continued -- In acceptable range Assessment & Plan (01/15/2025 6:21 AM EDT): -- Coreg DIRECTOR INTERNAL COMMUNICATIONS -- In acceptable range Assessment & Plan (01/15/2025 6:10 AM EDT): -- Coreg DIRECTOR INTERNAL COMMUNICATIONS Assessment & Plan (01/12/2025 10:29 PM EDT): -- Coreg DIRECTOR INTERNAL COMMUNICATIONS Cervical disc disease 09/30/2014 Peripheral neuropathy 09/30/2014 Overview (01/12/2025): Continue outpatient management Resolved Problems Problem Noted Date Diagnosed Date Resolved Date Acute heart failure with pre served ejection fraction 06/02/2025 06/02/2025 Pleural effusion 06/04/2024 06/04/2024 Encounters Date Type Department Care Team Description 08/05/2025 3:45 PM EDT Office Visit [facility] [address] [place] [address] [address] [place] [address] Vargas Wolf MD PAD (peripheral artery disease) (Primary Dx); Critical limb ischemia of left lower extremity (HCC) 06/28/2025 Telephone [facility] [address] [place] [phone] Sukh Garner DO Appointment Needed 06/23/2025 1:13 PM EDT - 07/02/2025 10:57 AM EDT Hospital Encounter [facility] [address] [place], [place] [id number] Stephan Rodriguez MD Nienaber, Kirk A, MD Atrial fibrillation with RVR (HCC) (Primary Dx); Acute pulmonary edema (HCC); Elevated troponin; Pleural effusion Discharge Disposition: Senior Care Facility 06/12/2025 8:28 PM EDT - 06/12/2025 11:17 PM EDT Emergency [facility] [address] [place] [address] Rhina Gooden DO Acute UTI (Primary Dx) Discharge Disposition: Nursing Facility 05/24/2025 8:15 AM EDT - 05/24/2025 10:45 AM EDT [facility] [place] [address] Vargas Wolf MD LEG AMPUTATION ABOVE KNEE / REVISION ABOVE KNEE AMPUTATION 05/24/2025 8:07 AM EDT Anesthesia Event EDG [facility] [place] [address] Tano Justice DO Trog, Lynnsey, SLIP COVER SEAMSTRESS 05/24/2025 7:20 AM EDT Ancillary Procedure EDG SURGERY [facility] [place] [address] Donnie Kaur MD Adler, Jordan M, MD Connelly, Kevin D, MD 05/23/2025 3:01 AM EDT Anesthesia Event EDG 3C PULMONARY [facility] [address] [place] [address] Sheryl Horton, SLIP COVER SEAMSTRESS 05/21/2025 Orders Only [facility] [address] [place] [address] Drive [address] [place] [address] Mary Lombardi MA PAD (peripheral artery disease); Critical limb ischemia of left lower extremity (HCC) 05/10/2025 12:17 PM EDT Anesthesia Event EDG IR [facility] [address] [address] [place] [address] Manuel Noland MD Zehnder, Wende, SLIP COVER SEAMSTRESS 05/10/2025 11:32 AM EDT - 05/10/2025 11:59 PM EDT Hospital Encounter EDG [facility] [place] [address] Donnie Kaur MD Adler, Jordan M, MD Rodgers, Douglas A, MD Wright, Matthew Taylor, CRNA Rachovitsky, Harel N, MD Preop testing (Primary Dx); Anemia, unspecified type; PAD (peripheral artery disease); Critical limb ischemia of left lower extremity (HCC) Discharge Disposition: Home or Self Care 05/09/2025 3:01 AM EDT Anesthesia Event EDG 3C PULMONARY [place] [address] Sheryl Horton, SLIP COVER SEAMSTRESS 04/30/2025 4:07 PM EDT - 06/10/2025 4:06 PM EDT Hospital Encounter [facility] 5D [place] [place] [address] Donnie Kaur MD Adler, Jordan M, MD Connelly, Kevin D, MD Upadhayay, Trino, MD Wound dehiscence (Primary Dx); Typical atrial flutter (HCC); Left foot pain; PAD (peripheral artery disease); Critical limb ischemia of left lower extremity (HCC); Preop testing Discharge Disposition: Senior Care Facility from Last 3 Months Surgical History Surgery [...] IR REVAS FEM POP ART UNILAT W DIRECTOR INTERNAL COMMUNICATIONS 01/30/2025 IR REVAS FEM POP ART UNILAT W DIRECTOR INTERNAL COMMUNICATIONS 01/30/2025 Vargas Wolf MD EDG IR CARDIAC [...] IR ANGIOGRAM FEMORAL ARTERIO SHIFT 05/10/2025 Vargas Wlof MD EDG IR IR ABDOMINAL AORTOGRAM SERIALOGRAM [...] = 0.6 oz pur e alcohol) [facility] Utilities Answer Date Recorded In the past 12 months has e Ippies, gas, oil, or water [employer] threatened to shut off services in your home? No 06/23/2025 Overall Financial Resource Strain (CARDIA) Answe r Date Recorded How hard is it for you to pa y for the very basics like food, housing, medical care, and heating? Not very hard 06/23/2025 PHQ-2 Answer Date Recorded PHQ-2 Total Score 0 06/23/2025 [facility] of Occupat ional Health - Occupational Stress [...] get more. Never true 06/23/2025 [facility] IP Transportation Answer D ate [...] Pulse 126 08/05/2025 3:57 PM EDT Temperature 36.6 C (97.8 F) 07/02/2025 [...] EST Office Visit [facility] [address] [place] [address] [place] [phone] Vargas Wolf MD [address] [place] [address] [place] [address] Health Maintenance Due Date Last Done Comments [...] this topic Medical Devices Implanted Type Area Chronograph Operator Device Identifier Shelf Expiration Date Model / Serial / Lot Stent Omnilink Elite [id number] Otw Be Prmnt 0.035in Gw 6fr Stent-Omn ilink [facility] LAB:VASC DEV 01/14/2026 [id number] / / [id number] Stent Omnilink Elite [id number] Otw Be Prmnt 0.035in Gw 6fr Stent-Omn ilink [address] Mobile LAB:VASC DEV 01/14/2026 [id number] / / [id number] Mtrx Tiss 23ga Viaflow Hmn Plcnt Flw Premx Amb Temp Ndl 2cc - [id number] Implanted:Qty: 1 on 03/09/2025 by Dacia Mills DPM at [facility] Left: Foot Synapse Wireless GRP:Synapse Wireless TECH 11/10/2028 [id number] / [id number] / Procedures Procedure Name Priority Date/Time [...] were not included. 06/26/2025 Skyler Bautista [id number] Reason for Consult: Urinary retention Requesting Physician: Duong Vitale MD History Obtained From: Patient, chart review HISTORY OF PRESENT ILLNESS: The patient is a 84 y.o. female with a PMHx of PAD, CHF, Afib,CKD, DM, admitted on 06/23/2025 to [facility] for AFIB with RVR. She iscurrently in ICU for AFIB with tachycardia, seizure like activity, acuteon chronic HF. Urology has been consulted for Urinary Retention. Patientwith elevated PVRs, has been straight cath for 850cc several times sinceadmission. Indwelling silva placed last night, 06/25/2025, by ADVERTISEMENT COMPOSITOR. Jossue, the patient was seen by our group earlier this year for urinaryretention and refused a silva. The patient reports that she's had episodesof retention intermittently in the past. She did note some bladderpressure with retention. Denies recent pain with urination, GH. Last BMwas last night. UA 06/23/25 negative. No recent abdominal/pelvic imagingdone. Today, Cr 0.87. Currently, she reports tolerating silva. Per chart review, she was seen by [...] IR REVAS FEM POP ART UNILAT W DIRECTOR INTERNAL COMMUNICATIONS 01/30/2025 IR REVAS FEM POP ART UNILAT W DIRECTOR INTERNAL COMMUNICATIONS 01/30/2025 Vargas Wolf MD EDG IR IR [...] Abdomen - soft, nontender, nondistended Pelvic - silva in place draining clear yellow urine Back [...] noted onreview of home meds. Recommend keeping silva and doing outpatient VT in the office. DO NOTREMOVE SILVA before discussing with urology I spoke with [...] 12:16 PM EDT IP CONSULT TO MEDICAL INSIDE TECHNICAL SALES REPRESENTATIVE Routine 06/24/2025 11:57 AM EDT Procedure Note [...] with Atrial Fibrillation a fib rvr from [employer]. they report HR of 180, per squad HR 103. Skyler Bautista is a(n)84 y.o. female is being evaluated following ICUadmission for acute hypoxic respiratory failure, seizures andbradycardia. HPI: Ms. Bautista is an 84 year old female with a PMHx significant forA-fib, PE, HFpEF, subarachnoid hemorrhage, TBI, T2DM, CKD, PVD, and recentleft AKA. She was at a retirement after recent admission for AKA withcomplaints of [...] with Afib with RVR and rate in [id number]'s. Trops: 92 -> 83, K: 4.5, creatinine: 0.84. [facility]. She was continued on Cardizem [...] has cpap, but is not using. Stroke ([facility]) pt's states around 3 years ago. Urinary [...] IR REVAS FEM POP ART UNILAT W DIRECTOR INTERNAL COMMUNICATIONS 01/30/2025 IR REVAS FEM POP ART UNILAT W DIRECTOR INTERNAL COMMUNICATIONS 01/30/2025 Vargas Wolf MD EDG IR IR [...] foot hallux amputation; Surgeon: Dacia Mills DPM;Location: [facility]; Service: Podiatry FH: No family [...] true Transportation Needs: No Transportation Needs (06/23/2025) [facility] IP Transportation In the past 12 months, has lack of reliable transportation kept you frommedical appointments, meetings, work or from getting things needed fordaily living?: No Physical Activity: Inactive (06/23/2025) Exercise Vital Sign Days of Exercise per Week: 0 days Minutes of Exercise per Session: 0 min Stress: No Stress Concern Present (06/23/2025) [facility] of Occupational Health - Occupational StressQuestionnaire Feeling of Stress : Not at all Social Connections: Low Risk (10/30/2023) Received from [facility] ([place], [place], [place], [place]) Family and Community Support Help with Day to Day Activities: Not on file Feeling Lonely or Isolated: Not on file Intimate Partner Violence: Not At Risk (08/06/2024) Received from [facility] Humiliation, Afraid, Rape, and Kick questionnaire Fear of Current or Ex-Partner: No Emotionally Abused: No Physically Abused: No Sexually Abused: No Housing Stability: Low Risk (08/06/2024) Received from [facility] Housing Stability Vital Sign Unable to [...] fUROsemide 40 mg Intravenous Daily Insulin Calculator (ELECTRONIC FUNDS TRANSFER COORDINATOR) - FSBS (Correction Only) Intake Input 1 [...] 0 Taking nalOXone (NARCAN) 4 mg/actuation Nasl Polk, Non-Aerosol 0.1 mL by Nasalroute as needed for Opioid Reversal. Polk the contents of one device(0.1mL) into one [...] C), Max:97.5 F (36.4 C) Date 06/24/25 07 - 06/25/25 0659 Shift [id number] 6222-4656 8274-0366 24 Hour Total INTAKE I.V.(mL/kg/hr) 4.5 4.5 [...] % Labs: ABG Recent Labs 06/24/25 02206/24/25 0526 PH 7.38 7.45 PCO2 38 31* [...] EK EKG 12 LEAD Result Date: 06/24/2025 [facility] Date:2025-06-24 Pat Name: SKYLER BAUTISTA Department: DEPIDPatient ID: [id number] Room: [facility] Gender:Female Principal Accounts Clerk: Reza : [id number] By: DONNIE KINNEY Order Number: [id number] MD: Sukh GarnerMeasurements Intervals Deputy Rate:54 P: 0 [place]: 0QRS: 39 QRSD: 89 T:0 QT: 462 [...] Pat Name: SKYLER BAUTISTA Department: DEPIDPatient ID: [id number] Room: W428 Gender:Female Principal Accounts Clerk: Femi : [id number] By: STEPHAN Earl Order Number: [id number] MD: Jaycob Sandoval MeasurementsIntervals Deputy Rate: 139P: 0 [place]: 0QRS: 65 QRSD: 82 T: 26QT: 286 QTc: 436InterpretiveStatements ATRIAL FIBRILLATION WITH RAPID VENTRICULAR RESPONSE POSSIBLEANTEROSEPTAL MYOCARDIAL INFARCTION, PROBABLY OLD Electronically Signed [id number] 19:29:47 [address]T [address] ANGIOGRAM [...] aortic arch aneurysm. Nopneumothorax. Small left and [id number] right pleural effusions.Emphysema. Opacities dependently in the [...] PIV x2 Mechanical Ventilation: day # 1 Silva: day # N/A Nutrition: TF ordered Insulin Regimen: Q4H CCI Last BM: DIRECTOR INTERNAL COMMUNICATIONS Assessment Acute hypoxic respiratory failure Seizure Atrial [...] GI prophylaxis: Protonix CODE status: DNR Limited SLIP COVER SEAMSTRESS critical care time: 17 minutes Spencer Luna [...] Patch 0 nalOXone (NARCAN) 4 mg/actuation Nasl Polk, Non-Aerosol 0.1 mL by Nasalroute as needed for Opioid Reversal. Polk the contents of one device(0.1mL) into one [...] -- -- 129 25 97 % -- 09/07/25 1316 (!) 163/101 -- -- 121 16 [...] 3:41 PM EDT Procedure Note - Sukh Garner, DO - 06/24/2025 10:18 AM EDTThis note is in progress. Heart & Vascular Consult Note PATIENT: Skyler Bautista 0 PCP: No Pcp, Per Patient I would like to thank Duong Vitale MD for requesting me to see [facility] for cardiac consultation for bradycardia. History provided by: EMR, son History limited by: intubated and sedated History of Present Illness: Skyler Bautista is a 84 y.o. female with a past medical history included butnot limited to afib, PE, HFpEF, subarachnoid hemorrhage, TBI, T2DM, CKD,PVD, recent left AKA who was admitted on 06/23* for shortness of breath.She was at retirement recovering from recent AKA and developed shortnessof breath for four days DIRECTOR INTERNAL COMMUNICATIONS. In the ED she was noted to [...] years ago. Urinary incontinence Urinary tract infection DIRECTOR INTERNAL COMMUNICATIONS Medications: Prior to Admission medications Medication Sig [...] Montiel MD nalOXone (NARCAN) 4 mg/actuation Nasl Polk, Non-Aerosol 0.1 mL by Nasalroute as needed for Opioid Reversal. Polk the contents of one device(0.1mL) into one [...] 40 mg Intravenous BID Diuretic Insulin Calculator (ELECTRONIC FUNDS TRANSFER COORDINATOR) - FSBS (Correction Only) Intake Input 1 [...] IR REVAS FEM POP ART UNILAT W DIRECTOR INTERNAL COMMUNICATIONS 01/30/2025 IR REVAS FEM POP ART UNILAT W DIRECTOR INTERNAL COMMUNICATIONS 01/30/2025 Vargas Wolf MD EDG IR IR [...] List Diagnosis Coronary arteriosclerosis in [place] artery // Hx of CABG Closed nondisplaced [...] Exostosis of toe Atherosclerosis of [place] artery of extremity Abscess of toe of [...] most recent cardiovascular imaging studies available in [facility] EMR werereviewed at time of [...] Bilateral pleural effusions and dependent opacities -atelectasis -DIRECTOR INTERNAL COMMUNICATIONS lasix PRN -Currently on IV diuresis this admission -Volume status appears to be improving - likely transition to PO tomorrow Coronary Artery Disease -Remote history of CABG and subsequent PCIs -DIRECTOR INTERNAL COMMUNICATIONS lipitor 40 mg, coreg 25 mg BID, ranexa 500 mg BID History of PE -No DIRECTOR INTERNAL COMMUNICATIONS AC with history of ICH Elevated Troponin -Troponin 92, 83 -EKG afib RVR -ECHO pending Type 2 Diabetes -A1c 5.3 Hypertension -DIRECTOR INTERNAL COMMUNICATIONS coreg 25 mg BID Hyperlipidemia -DIRECTOR INTERNAL COMMUNICATIONS lipitor 40 mg Peripheral Vascular Disease -s/p [...] AKA as of 05/24/2025, who wasadmitted from retirement with rapid atrial fibrillation and acutehypoxic respiratory failure. A fib w/ RVR on admission, placed on dilt gtt, became bradycardic andhypotension, had subsequent PEA arrest, now s/p ETT and left IJ centralline. ECG on admission w/ rapid atrial fibrillation, possible old anteroseptalMI Hs Trop 92-83 NT Pro BNP [address] [facility] 11/25/2022- 1. CAD s/p CABG [...] multiple comorbidities, overall guarded prognosis. Sukh Garner, , FACC ADMIT Routine 06/23/2025 3:34 PM EDT [...] AIRWAY PLACEMENT Routine 05/24/2025 8:13 AM EDT [place] AMPUTATION THIGH THROUGH FEMUR ANY LEVEL 05/24/2025 [...] progress. Palliative Care Consult Note Consult Location: [facility] Length of Stay: 12 - chart review [...] helpful to explore this further with floor Management Department Chair.Support provided along with [facility] role. Patient reports [...] Wound Dehiscence Pt presents per ems [facility], toes amputated on left foot,here for [...] has cpap, but is not using. Stroke ([facility]) pt's states around 3 years ago. Urinary incontinence Urinary tract infection Active Hospital Problems: Active Hospital Problems Diagnosis *Diabetic foot infection (HCC) Wound dehiscence S/P transmetatarsal amputation of foot, left (HCC) Stage 3a chronic kidney disease (HCC) Anemia in other chronic diseases classified elsewhere PAD (peripheral artery disease) Chronic heart failure with preserved ejection fraction (HCC) Paroxysmal atrial fibrillation (HCC) Coronary arteriosclerosis in [place] artery // Hx of CABG Type 2 [...] true Transportation Needs: No Transportation Needs (05/01/2025) [facility] Transportation In the past 12 months, has lack of reliable transportation kept you frommedical appointments, meetings, work or from getting things needed fordaily living?: No Physical Activity: Inactive (05/01/2025) Exercise Vital Sign Days of Exercise per Week: 0 days Minutes of Exercise per Session: 0 min Stress: No Stress Concern Present (05/01/2025) [facility]ational [facility] - Occupational StressQuestionnaire Feeling of Stress : Not at all Social Connections: Low Risk (10/30/2023) Received from [employer] ([place], [place], [place], [place]) Family and Community Support Help with Day to Day Activities: Not on file Feeling Lonely or Isolated: Not on file Intimate Partner Violence: Not At Risk (08/06/2024) Received from [facility] Humiliation, Afraid, Rape, and Kick questionnaire Fear of Current or Ex-Partner: No Emotionally Abused: No Physically Abused: No Sexually Abused: No Housing Stability: Low Risk (08/06/2024) Received from [facility] Housing Stability Vital Sign Unable to [...] mg 300 mg Oral Nightly 300 mg at05/12/25 2255 glucagon (GLUCAGEN) injection 1 mg 1 [...] - TELEMETRY Routine 05/07/2025 7:03 AM EDT HEMOGLOBIN A1C Routine 05/03/2025 6:37 AM EDT from Last 3 Months or Most Recently Relevant to Health Maintenance Results * (ABNORMAL) GLUCOSE METER POC (07/02/2025 8:08 AM EDT) Only the most recent of72 resultswithin the time period is included. [facility] Glucose Meter POC 112(H) 70 - 100 mg/dL 07/02/2025 8:11 AM EDT [facility] Sample Type Capillary 07/02/2025 8:11 AM EDT [facility] Patient Status Non-Critical Patient 07/02/2025 8:11 AM EDT [facility] Blood BLOOD SPECIMEN / Unknown 07/02/2025 8:08 AM EDT 07/02/2025 8:11 AM EDT us Duong Vitale MD POINT OF CARE TEST ORDERABLES Final Result [facility] [address] [place] [address] * ECG AND WAVEFORMS - TELEMETRY (07/01/2025 7:05 PM EDT) Only the most recent of99 resultswithin the time period is included. ECG INTERPRET Sinus Arrythmia [facility] 07/01/2025 7:05 PM EDT Narrative [facility] - 07/01/2025 7:37 PM EDT ROUTINE/PAC/PVC/af [place] 0.18 QRS 0.09 RR 0.58 QT 0.35 QTc 0.46 See Clinical Report link for waveform capture us Unknown Provider POINT OF CARE CARDIOLOGY Final Result [facility] [address] [place], [place] [id number] * (ABNORMAL) COMPREHENSIVE METABOLIC PANEL (07/01/2025 10:56 AM EDT) Only the most recent of8 resultswithin the time period is included. Sodium 138 136 - 145 mmol/L 07/01/2025 11:22 AM EDT [facility] Potassium 3.6 3.5 - 5.0 mmol/L 07/01/2025 11:22 AM EDT [facility] Chloride 104 98 - 107 mmol/L 07/01/2025 11:22 AM EDT [facility] Total CO2 22 22 - 29 mmol/L 07/01/2025 11:22 AM EDT [facility] Anion Gap 12 7 - 16 mmol/L 07/01/2025 11:22 AM EDT [facility] Calcium 8.9 8.8 - 10.4 mg/dL 07/01/2025 11:22 AM EDT [facility] Glucose Lvl 128(H) 70 - 99 mg/dL 07/01/2025 11:22 AM EDT [facility] BUN 25(H) 8 - 23 mg/dL 07/01/2025 11:22 AM EDT [facility] Creatinine 0.82 0.51 - 1.30 mg/dL 07/01/2025 11:22 AM EDT [facility] Albumin 3.7 3.2 - 4.6 gm/dL 07/01/2025 11:22 AM EDT [facility] Total Protein 7.1 6.4 - 8.3 gm/dL 07/01/2025 11:22 AM EDT [facility] Bili Total 0.6 0.2 - 1.3 mg/dL 07/01/2025 11:22 AM EDT [facility] ALT 18 <=41 U/L 07/01/2025 11:22 AM EDT [facility] AST 35 <=40 U/L 07/01/2025 11:22 AM EDT [facility] Alk Phos 151(H) 36 - 123 U/L 07/01/2025 11:22 AM EDT [facility] eGFR (CKD-EPIcr 2020) 70 >=60 mL/min/1.7 3 m2 07/01/2025 11:22 AM EDT [facility] Comment:Estimated GFR was ca lculated using the CKD-EPIcr (2020) equation refit without race. The equation is recommended by the National Kidney [employer] - [place] [employer] of Nephrology Task Force. Blood VENOUS BLOOD / Unknown Venipuncture / Unknown 07/01/2025 10:56 AM EDT 07/01/2025 10:59 AM EDT us Jacob Horowitz MD CHEMISTRY ORDERABLES Final Resul t [facility] [address] [place] [address] * (ABNORMAL) CBC WITH DIFF (06/28/2025 11:26 AM EDT) Only the most recent of5 resultswithin the time period is included. WBC 4.3 3.7 - 10.3 x10(3)/mcL 06/28/2025 11:33 AM EDT [facility] RBC 2.62(L) 3.90 - 5.20 x10(6)/mcL 06/28/2025 11:33 AM EDT [facility] Hgb 9.7(L) 11.2 - 15.7 g/dL 06/28/2025 11:33 AM EDT [facility] Hct 30.2(L) 34.0 - 45.0 % 06/28/2025 11:33 AM EDT [facility] MCV 115.3(H) 80.0 - 100.0 fL 06/28/2025 11:33 AM EDT [facility] MCH 37.0(H) 26.0 - 34.0 pg 06/28/2025 11:33 AM EDT [facility] MCHC 32.1 30.7 - 35.5 g/dL 06/28/2025 11:[facility] RDW 18.9(H) <=14.9 % 06/28/2025 11:[facility] Platelet 86(L) 155 - 369 x10(3)/[facility] 06/28/2025 11:33 [facility] MPV 11.8 8.8 - 12.5 fL 06/28/2025 11:33 AM [facility] Neut Percent 52.1 % 06/28/2025 11:[facility] Comment:Neutrophils equals s egs plus bands Imm Gran% 0.5 % 06/28/2025 11:33 AM [facility] Comment:Automated count of m etamyelocytes, myelocytes and promyelocytes. Lymph Percent 40.1 % 06/28/2025 11:33 AM EDT [facility] [place]k Percent 6.6 % 06/28/2025 11:33 AM [facility] Eos Percent 0.2 % 06/28/2025 11:33 [facility] Baso Percent 0.5 % 06/28/2025 11:33 AM [facility] Neut # 2.2 1.6 - 6.1 x10(3)/[facility] 06/28/2025 11:33 AM [facility] Comment:Neutrophils equals s egs plus bands IMMGRAN# 0.0 0.0 - 0.1 x10(3)/[facility] 06/28/2025 11:33 AM [facility] Comment:Automated count of m etamyelocytes, myelocytes and promyelocytes. An absolute IG <0.1 is reported as 0.0. Lymph # 1.7 1.2 - 3.9 x10(3)/mcL 06/28/2025 11:33 AM EDT [facility] [place]k # 0.3 0.3 - 0.9 x10(3)/[facility] 06/28/2025 11:33 AM EDT [facility] Eos# 0.0 0.0 - 0.5 x10(3)/[facility] 06/28/2025 11:33 AM EDT [facility] Baso # 0.0 0.0 - 0.1 x10(3)/[facility] 06/28/2025 11:33 AM EDT [facility] Blood VENOUS BLOOD / Unknown Venipuncture / Unknown 06/28/2025 11:26 AM EDT 06/28/2025 11:30 AM EDT us Jacob Horowitz MD HEMATOLOGY ORDERABLES Final Resu lt Performing Organization Address City/[facility] Co de Phone Number [facility] [address] [place] [address] * PHOSPHORUS LEVEL (06/28/2025 11:26 AM EDT) Only the most recent of5 resultswithin the time period is included. Phosphorus 2.6 2.5 - 4.5 mg/dL 06/28/2025 11:55 AM EDT [facility] Blood VENOUS BLOOD / Unknown Venipuncture / Unknown 06/28/2025 11:26 AM EDT 06/28/2025 11:30 AM EDT us Jacob Horowitz MD CHEMISTRY ORDERABLES Final Resul t Performing Organization Address City/[facility] de Phone Number [facility] [address] [place] [address] * MAGNESIUM LEVEL (06/28/2025 11:26 AM EDT) Only the most recent of14 resultswithin the time period is included. Magnesium 1.8 1.6 - 2.4 mg/dL 06/28/2025 12:04 PM EDT [facility] Blood VENOUS BLOOD / Unknown Venipuncture / Unknown 06/28/2025 11:26 AM EDT 06/28/2025 11:30 AM EDT us Jacob Horowitz MD CHEMISTRY ORDERABLES Final Resul t [facility] [address] [place] [address] * EXTRA LAVENDER (06/27/2025 8:28 AM EDT) Blood VENOUS BLOOD / Unknown Venipuncture / Unknown 06/27/2025 8:28 AM EDT 06/27/2025 8:36 AM EDT us Duong Vitale MD HEMATOLOGY ORDERABLES Final R esult [facility] [address] [place] [address] * (ABNORMAL) BASIC METABOLIC PANEL (06/27/2025 8:28 AM EDT) Only the most recent of19 resultswithin the time period is included. Sodium 138 136 - 145 mmol/L 06/27/2025 8:56 AM EDT [facility] Potassium 4.1 3.5 - 5.0 mmol/L 06/27/2025 8:56 AM EDT [facility] Chloride 106 98 - 107 mmol/L 06/27/2025 8:56 AM EDT [facility] Total CO2 21(L) 22 - 29 mmol/L 06/27/2025 8:56 AM EDT [facility] Anion Gap 11 7 - 16 mmol/L 06/27/2025 8:56 AM EDT [facility] Calcium 8.3(L) 8.8 - 10.4 mg/dL 06/27/2025 8:56 AM EDT [facility] Glucose Lvl 112(H) 70 - 99 mg/dL 06/27/2025 8:56 AM EDT [facility] BUN 13 8 - 23 mg/dL 06/27/2025 8:56 AM EDT [facility] Creatinine 0.86 0.51 - 1.30 mg/dL 06/27/2025 8:56 AM EDT [facility] eGFR (CKD-EPIcr 2020) 66 >=60 mL/min/1.7 3 m2 06/27/2025 8:56 AM EDT [facility] Comment:Estimated GFR was ca lculated using the CKD-EPIcr (2020) equation refit without race. The equation is recommended by the National Kidney Foundation - [place] [employer] of Nephrology Task Force. Blood VENOUS BLOOD / Unknown Venipuncture / Unknown 06/27/2025 8:28 AM EDT 06/27/2025 8:35 AM EDT Lianet Harris APRN CHEMISTRY ORDERABLES Fi nal Result Performing Organization Address [facility] Co de Phone Number [facility] [address] [place] [address] * POTASSIUM LEVEL (06/26/2025 2:27 PM EDT) Only the most recent of2 resultswithin the time period is included. Potassium 4.5 3.5 - 5.0 mmol/L 06/26/2025 2:46 PM EDT [facility] Blood VENOUS BLOOD / Unknown Venipuncture / Unknown 06/26/2025 2:27 PM EDT 06/26/2025 2:34 PM EDT Jacob Horowitz MD CHEMISTRY ORDERABLES Final Resul t Performing Organization Address [facility] de Phone Number [facility] [address] [place] [address] * US RENAL AND BLADDER [...] evaluation of the kidneys and bladder with front desk representative images and lens inserter notes sent to PACS for radiologist review. FINDINGS: RIGHT: 10.5 x 4.6 x 4.9 cm. No hydronephrosis, solid-appearing mass, or shadowing stone. Exophytic cysts are present including a 4 x 3 x 3 cm cyst and a 1.8 x 1.7 x 1.6 cm cyst. LEFT: 10.5 x 4.7 x 3.7 cm. No hydronephrosis, solid-appearing mass, or shadowing stone. Multiple cysts are noted. PELVIS: Silva catheter decompresses the bladder.d Other: Ascites is noted within all quadrants, small. Procedure Note Farhad Noonan MD - 06/26/2025 US KIDNEYS AND BLADDER, 06/26/2025 12:44 PM CLINICAL HISTORY: -Acute urinary retention. COMPARISON: None. PROCEDURE COMMENTS: Routine sonographic evaluation of the kidneys andbladder with front desk representative images and lens inserter notes sent to PACS forradiologist review. FINDINGS: RIGHT: 10.5 x 4.6 x 4.9 cm. No hydronephrosis, solid-appearing mass,or shadowing stone. Exophytic cysts are present including a 4 x 3 x 3 cm cystand a 1.8 x 1.7 x 1.6 cm cyst. LEFT: 10.5 x 4.7 x 3.7 cm. No hydronephrosis, solid-appearing mass, or shadowing stone. Multiple cysts are noted. PELVIS: Silva catheter decompresses the bladder.d Other: Ascites is noted within all quadrants, small. IMPRESSION: No evidence of active obstructive uropathy or other acute finding. - Note: Radiology results need to be interpreted within a comprehensiveclinical context. If you have questions about the radiology report, please contactthe office of the ordering clinician. us Antoine Ferraro PA-C [facility] [place] ORDERABLES F inal Result * (ABNORMAL) CBC (06/26/2025 6:31 AM EDT) Only the most recent of27 resultswithin the time period is included. WBC 4.6 3.7 - 10.3 x10(3)/mcL 06/26/2025 6:42 AM EDT [facility] RBC 2.48(L) 3.90 - 5.20 x10(6)/mcL 06/26/2025 6:42 AM EDT [facility] Hgb 9.0(L) 11.2 - 15.7 g/dL 06/26/2025 6:42 AM EDT [facility] Hct 27.4(L) 34.0 - 45.0 % 06/26/2025 6:42 AM EDT [facility] MCV 110.5(H) 80.0 - 100.0 fL 06/26/2025 6:42 AM EDT [facility] MCH 36.3(H) 26.0 - 34.0 pg 06/26/2025 6:42 AM EDT [facility] MCHC 32.8 30.7 - 35.5 g/dL 06/26/2025 6:42 AM EDT [facility] RDW 19.3(H) <=14.9 % 06/26/2025 6:42 AM EDT [facility] Platelet 87(L) 155 - 369 x10(3)/[facility] 06/26/2025 6:42 AM EDT [facility] MPV 12.9(H) 8.8 - 12.5 fL 06/26/2025 6:42 AM EDT [facility] Blood VENOUS BLOOD / Unknown Venipuncture / Unknown 06/26/2025 6:31 AM EDT 06/26/2025 6:37 AM EDT us Duong Vitale MD HEMATOLOGY ORDERABLES Final R esult [facility] [address] [place] [address] * (ABNORMAL) NT PROBNP (06/26/2025 6:31 AM EDT) Only the most recent of4 resultswithin the time period is included. NT Pro-BNP 7,743(H) <=624 pg/mL 06/26/2025 7:09 AM EDT [facility] Blood VENOUS BLOOD / Unknown Venipuncture / Unknown 06/26/2025 6:31 AM EDT 06/26/2025 6:37 AM EDT Narrative [facility] - 06/26/2025 7:09 AM EDT An NT pro-BNP level less than 300 pg/mL in any patient, regardless of age, effectively rules out acute CHF with a 99% negative predictive value. Ingestion of angie doses of biotin (>5 mg/day) taken within 8 hours of drawing blood sample can interfere with this immunoassay test. us Duong Vitale MD CHEMISTRY ORDERABLES Final Re sult [facility] [address] [place] [address] * EEG ED/ICU REMOTE MONITORING (06/25/2025 3:28 PM EDT) Anatomical Region Laterality Modality Head Electroencephalo graphy Narrative 07/02/2025 12:13 PM EDT REFERRING MD: Dr. Kinney DATES OF STUDY: 06-24-2025 (00:50) through 06-24-2025 (04:01) REASON FOR EEG: Eval for evidence of electrographic seizure activity CURRENT MEDICATIONS: Not provided for this study DESCRIPTION OF PROCEDURE: This EEG was obtained using a 10 lead EEG system positioned circumferentially without any parasagittal coverage (rapid EEG - [employer] device). Computer selected EEG is reviewed as well as background features and all clinically significant events. TECHNICAL SUMMARY: This is a 10 channel referential and bipolar EEG recorded in a digital format on the [employer] device. This device is designed to detect [...] coverage. Reading MD: Clyde Barr MD Donnie Kinney MD IMG EEG ORDERABLES Final Resu lt * (ABNORMAL) BLOOD GAS, VENOUS (06/25/2025 10:58 AM EDT) Only the most recent of2 resultswithin the time period is included. pH Venous 7.42 7.32 - 7.42 pH 06/25/2025 11:14 AM EDT [facility] pCO2 Venous 37(L) 41 - 51 mmHg 06/25/2025 11:14 AM EDT [facility] pO2 Venous 50(H) 25 - 40 mmHg 06/25/2025 11:14 AM EDT [facility] Comment:Interpret with cauti on. Not recommended to evaluate patient's oxygenation status. Base Excess Martín 0.0 mmol/L 11:14 AM EDT [facility] Hco3 Venous 24.3 24.0 - 28.0 mmol/L 06/25/2025 11:14 AM EDT [facility] CO2 Total Martín 23(L) 25 - 29 mmol/L 06/25/2025 11:14 AM EDT [facility] O2 Sat. Venous 83.5(H) 40.0 - 70.0 % 06/25/2025 11:14 AM EDT [facility] Inspired O2 25 06/25/2025 11:14 AM EDT [facility] Blood VENOUS STRUCTURE / Unknown Line / Unknown 06/25/2025 10:58 AM EDT 06/25/2025 11:06 AM EDT Gabby Heredia SLIP COVER SEAMSTRESS CHEMISTRY ORDERABLES Final Resul t [facility] [address] [place] [address] * CT HEAD WO CONTRAST (06/24/2025 2:37 [...] contactthe office of the ordering clinician. us Rusty Sawyer MD IMG CT ORDERABLES Mita [...] Modality Other 06/24/2025 10:5 5 AM EDT Unknown Provider IMG ECG ORDERABLES Final Result * (ABNORMAL) BLOOD GAS ARTERIAL (06/24/2025 5:26 AM EDT) Only the most recent of3 resultswithin the time period is included. pH 7.45 7.35 - 7.45 pH 06/24/2025 5:39 AM EDT [facility] pCO2 31(L) 35 - 45 mmHg 06/24/2025 5:39 AM EDT [facility] pO2 86 80 - 100 mmHg 06/24/2025 5:39 AM EDT [facility] HCO3 21.8(L) 22.0 - 26.0 mmol/L 06/24/2025 5:39 AM EDT [facility] TCO2 21(L) 22 - 29 mmol/L 06/24/2025 5:39 AM EDT [facility] Base Excess -1.8 -2.0 - 3.0 mmol/L 06/24/2025 5:39 AM EDT [facility] O2 Sat 97.7 95.0 - 98.0 % 06/24/2025 5:39 AM EDT [facility] Inspired O2 50 06/24/2025 5:39 AM EDT [facility] P/F Ratio 172(L) 300 - 500 mmHg 06/24/2025 5:39 AM EDT [facility] Comment: P/F ratio alone cannot diagnose ARDS. However, the following scale may be used to help classify Adult Respiratory Distress Syndrome (ARDS) severity: 200-300: Mild ARDS 100-199: Moderate ARDS <100: Severe ARDS Blood ARTERIAL BLOOD / Unknown Arterial / Unknown 06/24/2025 5:26 AM EDT 06/24/2025 5:32 AM EDT us John Rich MD CHEMISTRY ORDERABLES Final Resu lt [facility] [address] [place], [place] [id number] * (ABNORMAL) TSH REFLEX TO FT4 (06/24/2025 5:10 AM EDT) TSH Reflex 10.400(H) 0.270 - 4.200 mcIU/mL 06/24/2025 2:51 PM EDT PREFERRED [facility] [place], [facility] Blood VENOUS BLOOD / Unknown Venipuncture / Unknown 06/24/2025 5:10 AM EDT 06/24/2025 5:32 AM EDT Narrative [facility] [employer] [employer] - 06/24/2025 2:51 PM EDT Ingestion of angie doses of biotin (>5 mg/day) taken within 8 hours of drawing blood sample can interfere with this immunoassay test. Lianet Harris APRN CHEMISTRY ORDERABLES Fi nal Result Performing Organization Address [facility] Co de Phone Number [facility] [address] , [place] [address] * TRIGLYCERIDES (06/24/2025 5:10 AM EDT) Triglyceride 107 <150 mg/dL 06/24/2025 8:05 AM EDT [facility] Comment: < 150 Normal 150 - 199 Borderline High 200 - 499 High >= 500 Very High Blood VENOUS BLOOD / Unknown Venipuncture / Unknown 06/24/2025 5:10 AM EDT 06/24/2025 5:32 AM EDT Donnie Kinney MD CHEMISTRY ORDERABLES Final Re sult Performing Organization Address [facility] de Phone Number [facility] [address] , [place] [address] * T4, FREE (THYROXINE) (06/24/2025 5:10 AM EDT) Free T4 0.98 0.80 - 1.80 ng/dL 06/24/2025 3:36 PM EDT [facility] Blood VENOUS BLOOD / Unknown Venipuncture / Unknown 06/24/2025 5:10 AM EDT 06/24/2025 5:32 AM EDT Narrative [facility] - 06/24/2025 3:36 PM EDT Ingestion of angie doses of biotin (>5 mg/day) taken within 8 hours of drawing blood sample can interfere with this immunoassay test. Lianet Harris APRN CHEMISTRY ORDERABLES Fi nal Result Performing Organization Address [facility] Co de Phone Number [facility] [address] , [place] [address] * XR CHEST AP PORTABLE (06/24/2025 4:17 AM EDT) Only the most recent of9 resultswithin the time period is included. Anatomical [...] 12:05 AM EDT) Only the most recent of4 resultswithin the time period is included. Anatomical Region Laterality Modality Electrocardiogra phy 06/24/2025 7:30 AM EDT Impressions 06/24/2025 8:[address] [facility] [facility] Test Date: 2025-06-24 Pat Name: [facility]ER [place] Department: DEPID Room: [facility] Gender: Female Principal Accounts Clerk: Reza : 1940 Requested By: DONNIE KINNEY Order Number: [id number] Reading MD: Sukh Garner Measurements Intervals Deputy Rate: 54 P: 0 [place]: 0 QRS: 39 QRSD: 89 T: 0 [...] Garner DO - 06/24/[address] [facility] Test Date: 2025-06-24 Pat Name: SKYLER [place] Department: DEPID Room: [facility] Gender: Female Principal Accounts Clerk: Reza : 1940 Requested By: DONNIE KINNEY Order Number: [id number] Reading MD: Sukh Garner Measurements Intervals Deputy Rate: 54 P: 0 [place]: 0 QRS: 39 QRSD: 89 T: 0 QT: 462 QTc: 438 Interpretive Statements ATRIAL FIBRILLATION WITH SLOW VENTRICULAR RESPONSE WITH ABERRANTCONDUCTION OR VENTRICULAR PREMATURE COMPLEXES LOW QRS VOLTAGE IN EXTREMITY LEADS [QRS DEFLECTION < 0.5 mV IN LIMBLEADS] NONSPECIFIC ST/T WAVE ABNORMALITY RATE HAS MARKEDLY DECREASED SINCE PRIOR Electronically Signed On 06-24-2025 08:09:24 EDT by Sukh Garner us Donnie Kinney MD IMG ECG ORDERABLES Final Resu lt * URINALYSIS REFLEX (06/23/2025 5:11 PM EDT) Only the most recent of6 resultswithin the time period is included. UA Color Yellow 06/23/2025 5:33 PM EDT [facility] UA Appear Clear Clear 06/23/2025 5:33 PM EDT [facility] UA Glucose Negative Negative mg/dL 06/23/2025 5:33 PM EDT [facility] UA Ketones Negative Negative mg/dL 06/23/2025 5:33 PM EDT [facility] UA Blood Negative Negative 06/23/2025 5:33 PM EDT [facility] UA pH 6.5 5.0 - 8.0 pH 06/23/2025 5:33 PM EDT [facility] UA Protein Negative Negative mg/dL 06/23/2025 5:33 PM EDT [facility] UA Urobilinogen Normal <=1 mg/dL 5:33 PM EDT [facility] UA Bili Negative Negative 06/23/2025 5:33 PM EDT [facility] UA Nitrite Negative Negative 06/23/2025 5:33 PM EDT [facility] UA Leuk Est Negative Negative 06/23/2025 5:33 PM EDT [facility] UA Spec Grav 1.011 1.001 - 1.035 no units 06/23/2025 5:33 PM EDT [facility] Comment:Reference range helga d for random specimens only. UA WBC 1 0 - 4 /HPF 06/23/2025 5:33 PM EDT [facility] UA RBC 1 0 - 3 /HPF 06/23/2025 5:33 PM EDT [facility] Urine STRUCTURE OF URINARY TRACT PROPER / Unknown 06/23/2025 5:11 PM EDT 06/23/2025 5:29 PM EDT us Duong Vitale MD URINE ORDERABLES Final Result [facility] [address] [place] [address] * EXTRA HUITRON URINE CX (06/23/2025 5:11 PM EDT) Only the most recent of6 resultswithin the time period is included. Urine STRUCTURE OF URINARY TRACT PROPER / Unknown 06/23/2025 5:11 PM EDT 06/23/2025 5:29 PM EDT us Duong Vitale MD MICROBIOLOGY - GENERAL ORDERA BLES Final Result Performing Organization Address [facility] Co de Phone Number [facility] [address] [place] [address] * (ABNORMAL) TROPONIN-T HIGH SENSITIVITY 2HR (06/23/2025 4:11 PM EDT) Only the most recent of3 resultswithin the time period is included. ka-cOopmeyvt-N 2HR 83(H) <14 ng/L 06/23/2025 4:36 PM EDT [facility] hs-cTnT 2Hr Delta from Baseline -9 <4 ng/L 06/23/2025 4:36 PM EDT [facility] Blood VENOUS BLOOD / Unknown Venipuncture / Unknown 06/23/2025 4:11 PM EDT 06/23/2025 4:14 PM EDT Narrative [facility] - 06/23/2025 4:36 PM EDT Ingestion of angie doses of biotin (>5 mg/day) taken within 8 hours of drawing blood sample can interfere with this immunoassay test. 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 Small left and yvame-vn-eowzwqih right pleural effusions. Emphysema. 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 Small left and mysoe-sr-scpihqde right pleuraleffusions. Emphysema. Opacities dependently in the [...] the ordering clinician. us Stephan Rodriguez MD IM CT ORDERABLES Final Resu lt * (ABNORMAL) TROPONIN-T HIGH SENSITIVITY BASELINE W/ REFLEX (06/23/2025 1:28 PM EDT) Only the most recent of3 resultswithin the time period is included. Pathologist [facility] wa-yGkrpyyxr-T 92(H) <14 ng/L 06/23/2025 2:10 PM EDT [facility] Blood VENOUS BLOOD / Unknown Venipuncture / Unknown 06/23/2025 1:28 PM EDT 06/23/2025 1:35 PM EDT Narrative [facility] - 06/23/2025 2:10 PM EDT Ingestion of angie doses of biotin (>5 mg/day) taken within 8 hours of drawing blood sample can interfere with this immunoassay test. Stephan Rodriguez MD CHEMISTRY ORDERABLES Final R esult Performing Organization Address [facility] de Phone Number [facility] [address] [place] [address] * (ABNORMAL) PARTIAL THROMBOPLASTIN TIME (06/23/2025 1:28 PM EDT) [facility] PTT 37.0(H) 25.7 - 36.8 second(s) 06/23/2025 1:48 PM EDT [facility] Comment: Therapeutic range for unfractionated heparin: 50.1 [...] HEMATOLOGY ORDERABLES Final Result Performing Organization Address [facility] Co de Phone Number [facility] [address] [place] [address] * (ABNORMAL) PT / INR (06/23/2025 1:28 PM EDT) Only the most recent of3 resultswithin the time period is included. Pathologist [facility] PT 15.3(H) 10.5 - 13.6 second(s) 06/23/2025 1:48 PM EDT [facility] INR 1.32(H) 0.91 - 1.18 (ratio) 06/23/2025 1:48 PM EDT [facility] Comment: Level of Therapy Indications Target INR Range Standard Dose Treatment and prophylaxis of venous 2.0 - 3.0 thrombosis, pulmonary embolism High Dose High risk patients with mechanical 2.5 - 3.5 heart valves Blood VENOUS BLOOD / Unknown Venipuncture / Unknown 06/23/2025 1:28 PM EDT 06/23/2025 1:35 PM EDT Stephan Rodriguez MD HEMATOLOGY ORDERABLES Final Result Performing Organization Address City/State/[facility] Co de Phone Number [facility] [address] [place] [address] * (ABNORMAL) D-DIMER (06/23/2025 1:28 PM EDT) [facility] D-Dimer 1,389(H) <=500 ng/mL FEU 06/23/2025 1:48 PM EDT [facility] Comment:This is an automated latex [...] Stephan Rodriguez MD HEMATOLOGY ORDERABLES Final Result [facility] [address] [facility] * CT CERVICAL SPINE WO CONTRAST (06/12/2025 [...] 9:22 PM EDT) Only the most recent of2 resultswithin the time period is included. Lactic Acid 1.2 0.5 - 1.9 mmol/L 06/12/2025 9:50 PM EDT [facility] Blood VENOUS BLOOD / Unknown Venipuncture / Unknown 06/12/2025 9:22 PM EDT 06/12/2025 9:29 PM EDT Rhina Gooden DO CHEMISTRY ORDERABLES Final Res ult Performing Organization Address [facility] Co de Phone Number [facility] [address] [place] [address] * AMMONIA LEVEL (06/12/2025 9:22 PM EDT) Ammonia 15 11 - 51 mcmol/L 06/12/2025 9:50 PM EDT [facility] Blood VENOUS BLOOD / Unknown Venipuncture / Unknown 06/12/2025 9:22 PM EDT 06/12/2025 9:29 PM EDT Rhina Gooden DO CHEMISTRY ORDERABLES Final Res ult Performing Organization Address [facility] de Phone Number [facility] [address] [place] [address] * (ABNORMAL) URINE CULTURE (NO STAIN) (06/12/2025 9:11 PM EDT) Only the most recent of4 resultswithin the time period is included. Culture Positive Growth(A) 06/15/2025 12:51 PM EDT [facility] Culture >100,000 CFU/mL Klebsiella pneumoniae SUSCEPTIB ILITY RESULT 06/15/2025 12:51 PM EDT [facility] Culture >100,000 CFU/mL Proteus mirabilis SUSCEPTIB ILITY RESULT 06/15/2025 12:51 PM EDT [facility] Comment: Confirmed positive for ESBL (extended [...] - GENERAL ORDERAB LES Final Result [facility] [address] [facility] , [place] [address] * SCANNED RHYTHM STRIPS (06/11/2025 1:28 PM [...] 06/04/2025 8:30 AM EDT [facility] Chloride 103 98 - 107 mmol/L [...] - 23 mg/dL 06/04/2025 8:30 AM EDT [facility] Creatinine 0.92 0.51 - 1.30 mg/dL 06/04/2025 8:30 AM EDT [facility] Albumin 3.1(L) 3.2 - 4.6 gm/dL 06/04/2025 8:30 AM EDT [facility] Phosphorus 3.7 2.5 - 4.5 mg/dL 06/04/2025 8:30 AM EDT [facility] eGFR (CKD-EPIcr 2020) 61 >=60 mL/min/1.7 3 m2 06/04/2025 8:30 AM EDT [facility] Comment:Estimated GFR was ca lculated using the CKD-EPIcr (2020) equation refit without race. The equation is recommended by the National Kid[employer] - [place] [employer] of Nephrology Task Force. Blood VENOUS BLOOD / Unknown Venipuncture / Unknown 06/04/2025 7:52 AM EDT 06/04/2025 7:57 AM EDT Stephen Pickard MD CHEMISTRY ORDERABLES Final R esult Performing Organization Address [facility] de Phone Number [facility] [address] [facility] , [place] [id number] * VANCOMYCIN LEVEL AUC1 (05/29/2025 5:55 AM EDT) [facility] Vancomycin AUC1 12.6 mcg/mL 6:54 AM EDT [facility] Blood VENOUS STRUCTURE / Unknown Line / Unknown 05/29/2025 5:55 AM EDT 05/29/2025 6:09 AM EDT Stephen Pickard MD CHEMISTRY ORDERABLES Final R esult Performing Organization Address [facility] Phone Number [facility] [address] [facility] , [place] [address] * (ABNORMAL) HEMOGLOBIN AND HEMATOCRIT (05/29/2025 12:48 AM EDT) Only the most recent of5 resultswithin the time period is included. [facility] Hgb 8.2(L) 11.2 - 15.7 g/dL 05/29/2025 12:53 AM EDT [facility] Hct 25.5(L) 34.0 - 45.0 % 05/29/2025 12:53 AM EDT [facility] Blood VENOUS BLOOD / Unknown Venipuncture / Unknown 05/29/2025 12:48 AM EDT 05/29/2025 12:48 AM EDT Michael Beltre MD HEMATOLOGY ORDERABLES Fin al Result Performing Organization Address [facility] de Phone Number [facility] [address] [facility] , [place] [address] * (ABNORMAL) HEMOGLOBIN (05/28/2025 2:51 PM EDT) Only the most recent of3 resultswithin the time period is included. [facility] Hgb 7.5(L) 11.2 - 15.7 g/dL 05/28/2025 4:08 PM EDT [facility] Blood VENOUS BLOOD / Unknown Venipuncture / Unknown 05/28/2025 2:51 PM EDT 05/28/2025 4:00 PM EDT Stephen Pickard MD HEMATOLOGY ORDERABLES Final Result Performing Organization Address [facility]/ZIP Co de Phone Number [facility] [address] [facility], [place] [address] * VANCOMYCIN LEVEL (05/27/2025 12:01 PM EDT) Pathologist [facility] Vanco Random 8.4 mcg/mL 05/27/2025 12:24 PM EDT [facility] Blood VENOUS BLOOD / Unknown Venipuncture / Unknown 05/27/2025 12:01 PM EDT 05/27/2025 12:12 PM EDT Luis Manuel Mays MD CHEMISTRY ORDERABLES Final Re sult Performing Organization Address [facility] Co [place] [address] * EC ECHOCARDIOGRAM COMPLETE W DOPPLER AND COLOR FLOW MAPPING (05/27/2025 9:27 AM EDT) [facility] LV DIASTOLIC PLAX 4.6 cm PYRAMIS Ejection [...] IMG ECHO ORDERABLES Final Res ult * CORTISOL 60 MINUTES (05/26/2025 7:36 PM EDT) Cortisol 60 Min 29.60 mcg/dL 8:26 PM EDT [facility] Blood VENOUS STRUCTURE / Unknown Venipuncture / Unknown 05/26/2025 7:36 PM EDT 05/26/2025 7:43 PM EDT Narrative [facility] - 05/26/2025 8:26 PM EDT Test performed using Homero Elecsys Cortisol II assay. Stimulated cortisol reference value not established by this laboratory. Stephen Pickard MD CHEMISTRY ORDERABLES Final R esult [facility] [address] [facility] , [place] [address] * CORTISOL 30 MINUTES (05/26/2025 7:05 PM EDT) Cortisol 30 Min 25.20 mcg/dL 8:03 PM EDT [facility] Blood VENOUS BLOOD / Unknown Venipuncture / Unknown 05/26/2025 7:05 PM EDT 05/26/2025 7:19 PM EDT Narrative [facility] - 05/26/2025 8:03 PM EDT Test performed using Hom[employer] Elecsys Cortisol II assay. Stimulated cortisol reference value not established by this laboratory. us Stephen Pickard MD CHEMISTRY ORDERABLES Final R esult Performing Organization Address [facility] de Phone Number [facility] [address] , [place] [address] * CORTISOL BASELINE (05/26/2025 6:49 PM EDT) Cortisol Baseline 11.20 mcg/dL 05/26/2025 7:39 PM EDT [facility] Blood VENOUS BLOOD / Unknown Venipuncture / Unknown 05/26/2025 6:49 PM EDT 05/26/2025 6:49 PM EDT [facility]ities [facility] - 05/26/2025 7:39 PM EDT AM: 4.82 [...] ORDERABLES Final R esult Performing Organization Address [facility] Co de Phone Number [facility] [address] , [place] [address] * (ABNORMAL) TROPONIN-T HIGH SENSITIVITY 6 HR (05/26/2025 6:26 PM EDT) sn-jDhokhjfg-N 6HR 59(H) <14 ng/L 05/26/2025 6:55 PM EDT [facility] hs-cTnT 6Hr Delta from Baseline -3 <12 ng/L 05/26/2025 6:55 PM EDT [facility] Blood VENOUS STRUCTURE / Unknown Venipuncture / Unknown 05/26/2025 6:26 PM EDT 05/26/2025 6:39 PM EDT Narrative [facility] - 05/26/2025 6:55 PM EDT Ingestion of angie doses of biotin (>5 mg/day) taken within 8 hours of drawing blood sample can interfere with this immunoassay test. us Stephen Pickard MD CHEMISTRY ORDERABLES Final R esult [place] [id number] * STAPHYLOCOCCUS AUREUS SCREEN (05/26/2025 4:24 PM EDT) Pathologist [facility] Staph aureus PCR Not Detected Not Detected 05/26/2025 6:20 PM EDT [facility] MRSA PCR Not Detected Not Detected 05/26/2025 6:20 PM EDT [facility] [place], [facility] Swab BOTH ANTERIOR NARES / Unknown 05/26/2025 4:24 PM EDT 05/26/2025 4:40 PM EDT Narrative [facility] - 05/26/2025 6:20 PM EDT Staphylococcus aureus target DNA sequence is not detected. This qualitative assay is intended for the detection of Staphylococcus aureus proprietary sequences for the staphylococcal protein A (spa) gene, the gene for methicillin resistance (mecA), and the staphylococcal cassette chromosome mec (SCCmec) inserted into the SA chromosomal attB site. This assay utilizes real time PCR on the [employer]enti[employer] GeneXpert Infinity, and its performance has been verified by the [facility]. A negative result does not [...] ORDERA BLES Final Result Performing Organization Address [facility] Co de Phone Number [facility] [address] , [place] [phone] * IONIZED CALCIUM - INPATIENT (05/26/2025 4:17 PM EDT) Pathologist [facility] Calcium Ionized 1.13 1.12 - 1.32 mmol/L 05/26/2025 4:29 PM EDT [facility] Blood VENOUS BLOOD / Unknown Venipuncture / Unknown 05/26/2025 4:17 PM EDT 05/26/2025 4:25 PM EDT us Luis Manuel Mays MD CHEMISTRY ORDERABLES Final Re sult Performing Organization Address [facility] de Phone Number [facility] [address] , [place] [phone] * BB HISTORY CHECK (05/26/2025 4:17 PM EDT) Only the most recent of2 resultswithin the time period is included. Pathologist [facility] BB HISTORY CHECK (1) Previous History OK 05/26/2025 11:40 PM EDT [facility] Blood VENOUS BLOOD / Unknown Venipuncture / Unknown 05/26/2025 4:17 PM EDT 05/26/2025 4:21 PM EDT Result Isabel Mays MD BLOOD BANK ORDERABLES Final R esult Performing Organization Address [facility] Co de Phone Number [facility] [address] [place] [address] * POTASSIUM WHOLE BLOOD (05/26/2025 4:17 PM EDT) K-WB 4.6 3.5 - 5.0 mEq/L 05/26/2025 4:29 PM EDT [facility] Blood VENOUS BLOOD / Unknown Venipuncture / Unknown 05/26/2025 4:17 PM EDT 05/26/2025 4:25 PM EDT us Luis Manuel Mays MD CHEMISTRY ORDERABLES Final Re sult [facility] [address] [facility] , [place] [address] * ABORH (05/26/2025 4:17 PM EDT) Only the most recent of2 resultswithin the time period is included. Pathologist [facility] ABORH Int A POS 05/26/2025 11:40 PM EDT [facility] Blood VENOUS BLOOD / Unknown Venipuncture / Unknown 05/26/2025 4:17 PM EDT 05/26/2025 4:21 PM EDT us Luis Manuel Mays MD BLOOD BANK ORDERABLES Final R esult Performing Organization Address [facility] Co de Phone Number [facility] [address] [place], [place] [id number] * FIBRINOGEN (05/26/2025 4:17 PM EDT) Only the most recent of2 resultswithin the time period is included. Pathologist [facility] Fibrinogen 312 196 - 444 mg/dL 05/26/2025 4:38 PM EDT [facility] Blood VENOUS BLOOD / Unknown Venipuncture / Unknown 05/26/2025 4:17 PM EDT 05/26/2025 4:21 PM EDT us Stephen Pickard MD HEMATOLOGY ORDERABLES Final Result Performing Organization Address City/[facility]/ZIP Co de Phone Number [facility] [address] [facility] , [place] [address] * RED BLOOD CELLS REQUEST (05/26/2025 4:17 PM EDT) Only the most recent of4 resultswithin the time period is included. [facility] Product Code [id number] [facility] Unit Number [id number] [facility] Crossmatch Interp Compatible [facility] Dispense Status RETURNED [facility] Blood Expiration Date [id number] [facility] ISBT 128 Type 6200 [facility] Blood Unit Volume 300 ml [facility] BA CODING SYSTEM [id number] [facility] Blood Type (Unit) A POS [facility] 05/26/2025 4:17 PM EDT 05/26/2025 4:21 PM EDT us Luis Manuel Mays MD BLOOD PRODUCT ORDERS Final Re sult Performing Organization Address City/[facility]/[place] [address] * ANTIBODY SCREEN IGG (05/26/2025 4:17 PM EDT) Only the most recent of2 resultswithin the time period is included. [facility] ABSC IgG Int Negative 05/26/2025 11:40 PM EDT [facility] Blood VENOUS BLOOD / Unknown Venipuncture / Unknown 05/26/2025 4:17 PM EDT 05/26/2025 4:21 PM EDT us Luis Manuel Mays MD BLOOD BANK ORDERABLES Final R esult Performing Organization Address City/[facility]/ZIP Co de Phone Number [address] [address] * (ABNORMAL) ADRENOCORTICOTROPIC HORMONE -REF LAB (05/26/2025 3:20 PM EDT) [facility] ACTH 3.3(L) 7.2 - 63.3 pg/mL 05/28/2025 7:58 PM EDT [facility] Comment: INTERPRETIVE INFORMATION: Adrenocorticotropic Hormone Reference interval based on samples collected between 7 a.m. and 10 a.m. No reference intervals established for p.m. collections. Pediatric reference values are the same as adults (Acta Paediatr Scand 1981;70:341-345). This assay measures intact ACTH 1-39; some types of synthetic ACTH and ACTH fragments are not detected by this assay. Performed By: [employer] [address] [place] [address] Conveyor Belt Operator: Gigi Cheney MD, PhD CLIA Number: [id number] Blood VENOUS BLOOD / Unknown Venipuncture / Unknown 05/26/2025 3:20 PM EDT 05/26/2025 3:23 PM EDT us Stephen Pickard MD CHEMISTRY ORDERABLES Final R esult [employer] [address] [place] [address] * CORTISOL (05/26/2025 2:11 PM EDT) [facility] Signature Cortisol 7.55 mcg/dL 05/26/2025 2:5 1 PM EDT [facility] Blood VENOUS BLOOD / Unknown Venipuncture / Unknown 05/26/2025 2:11 PM EDT 05/26/2025 2:15 PM EDT Narrative [facility] - 05/26/2025 2:51 PM EDT AM: 4.82 [...] ORDERABLES Final R esult Performing Organization Address [facility] de Phone Number [facility] [address] [facility] , [place] [address] * (ABNORMAL) HEPATIC FUNCTION PANEL (05/26/2025 2:11 [...] ORDERABLES Final Re sult Performing Organization Address City/[facility]/ZIP Co de Phone Number [facility] [address] [facility] , [place] [address] * PROCALCITONIN (05/26/2025 1:00 PM EDT) Pathologist [facility] Procalcitonin 0.08 <=0.49 ng/mL 05/26/2025 1:55 PM EDT [facility] Blood VENOUS BLOOD / Unknown Venipuncture / Unknown 05/26/2025 1:00 PM EDT 05/26/2025 1:18 PM EDT Narrative [facility] - 05/26/2025 1:55 PM EDT Procalcitonin <0.50 [...] ORDERABLES Final R esult Performing Organization Address [facility] Co de Phone Number [facility] [address] [place] [address] , [place] [address] * BLOOD CULTURE (NO STAIN) (05/26/2025 11:58 AM EDT) Only the most recent of2 resultswithin the time period is included. [facility] Culture Result No Growth at 120 hours. BLOOD CULTURE (NO STAIN) 05/31/2025 1:00 PM EDT [facility] Blood VENOUS BLOOD / Unknown Venipuncture / Unknown 05/26/2025 11:58 AM EDT 05/26/2025 12:03 PM EDT us Stephen Pickard MD MICROBIOLOGY - GENERAL ORDER CELESTE Final Result Performing Organization Address [facility] Co de Phone Number [facility] [address] [place] [address] , [place] [address] * TRANSFUSE RED BLOOD CELLS (05/24/2025 10:43 AM EDT) Only the most recent of2 resultswithin the time period is included. us Vargas Wolf MD NURSING TREATMENT ORDERABLE S - BLOOD ADMIN Edited Result - Final * PATHOLOGY TISSUE REQUEST (05/24/2025 8:41 AM EDT) CASE REPORT Surgical Pathology Case: [id number] Authorizing Provider: Vargas Wolf MD Collected: 05/24/2025 0841 Ordering Location: [facility] Received: 05/24/2025 1101 Pathologist: Addie Barakat MD Specimen: Leg, Left, Left Leg and knee 05/29/2025 3:42 PM EDT [facility] FINAL DIAGNOSIS Left leg and knee, [id number] amputation: - Ulcer and soft tissue necrosis at previous amputation site. - Atherosclerosis. - Focal areas of necrosis and acute inflammation consistent with acute osteomyelitis. - Skin and soft tissue margins are viable. - Bone margin is negative for acute osteomyelitis. 05/29/2025 3:42 PM EDT [facility] at 1542 EDT GROSS DESCRIPTION [...] soft tissue margins; Green - femoral vessels; Bradford - anterior tibial vessels; Black - posterior [...] diffusely calcified and up to 95% stenotic. Safe Technician sections are submitted as follows: A1: Bone marrow from margin, in a biopsy bag and following Decal Stat A2: Skin and soft tissue margin, perpendicularly sectioned A3: Lesion to underlying bone, following Decal Stat A4: Mid cross sections of vessels with stenotic and calcified areas, following Decal Stat Kesha Cerda MS, ABIGAIL (ASCP) 05/27/2025 05/29/2025 3:42 PM EDT [facility] MICROSCOPIC DESCRIPTION The microscopic examination may have been rendered in whole, or in part, by analyzing high-resolution digital images (whole slide images) on the [employer] Digital Pathology platform validated at [facility]. 05/29/2025 3:42 PM EDT [facility] EMBEDDED IMAGES 05/29/2025 3:42 PM EDT [facility] Tissue STRUCTURE OF LEFT LOWER LEG / Unknown 05/24/2025 8:41 AM EDT 05/24/2025 11:01 AM EDT us Vargas Wolf MD PATHOLOGY ORDERABLES Final Result Performing Organization Address [facility]/State/[facility] Co de Phone Number [facility] [address] [place] [address] [place] [address] * INTRAOP AIRWAY PLACEMENT (05/24/2025 8:13 AM EDT) Narrative [facility] - 05/24/2025 8:13 AM EDT Maite Luna CRNA 05/24/2025 8:18 AM Intraop Airway Placement: Date/Time: 05/24/2025 8:13 AM Induction type: IV Pre-Oxygenation: Reverse trendelenberg Mask ventilation: Easy mask ventilation Airway type: LMA Topical Anesthetic/Lubricant: Lubricant jelly Airway location: Oral Device size: 3 Placement verified: Auscultation, End tidal CO2 and Symmetric chest wall motion Condition: Atraumatic and Unchanged Insertion attempts: 1 Title: EMBROIDERY ASSISTANT us Tano Justice DO [place] ANESTHESIA Final Result Performing Organization Address [facility] de Phone Number [facility] [address] [place] [address] * Peripheral Block by Anesthesia (05/24/2025 7:53 AM EDT) Narrative [facility] - 05/24/2025 7:53 AM EDT Tano [...] ORDERABLES Final R esult Performing Organization Address [facility] de Phone Number [facility] [address] [place] [address] * US ANES GUIDANCE FOR NERVE BLOCK (05/24/2025 7:18 AM EDT) Narrative [facility] - 05/24/2025 7:18 AM EDT Ultrasound guided [...] 05/21/2025 7:57 AM EDT [facility] Transferrin 182(L) 200 - 360 mg/dL 05/21/2025 7:57 AM EDT [facility], [facility] Transferrin Saturation 16(L) 20 - 50 % 05/21/2025 7:57 AM EDT [facility], [facility] TIBC 255 250 - 400 mcg/dL 05/21/2025 7:57 AM EDT [facility] Blood VENOUS BLOOD / Unknown Venipuncture / Unknown 05/21/2025 7:18 AM EDT 05/21/2025 7:22 AM EDT Carlos Manuel Landaverde II, MD CHEMISTRY ORDERABLES Mita l Result Performing Organization Address [facility] Phone Number [facility], [address] , [address] [place] [phone] * VITAMIN B12/ FOLIC ACID (05/21/2025 7:18 AM EDT) Vitamin B12 806 232 - 1,245 pg/mL 05/21/2025 8:20 AM EDT [facility], [facility] Folate >16.00 >=4.80 ng/mL 05/21/2025 8:20 AM EDT [facility], [facility] Blood VENOUS BLOOD / Unknown Venipuncture / Unknown 05/21/2025 7:18 AM EDT 05/21/2025 7:22 AM EDT Narrative PREFERRED [facility], [facility] - 05/21/2025 8:20 AM EDT Ingestion of angie doses of biotin (>5 mg/day) taken within 8 hours of drawing blood sample can interfere with this immunoassay test. Carlos Manuel Landaverde II, MD CHEMISTRY ORDERABLES Mita l Result Performing Organization Address [facility] Co de Phone Number [facility], [address] , [place] [address] * PERIPHERAL SMEAR/PATH REVIEW (05/21/2025 7:18 AM [...] Sujata Benitez MD 05/22/2025 5:33 PM EDT [facility] Blood VENOUS BLOOD / Unknown Venipuncture / Unknown 05/21/2025 7:18 AM EDT 05/21/2025 7:22 AM EDT us Stephen Pickard MD HEMATOLOGY ORDERABLES Final Result Performing Organization Address City/State/[facility] Co de Phone Number [facility] [address] [place], [place] [id number] * XR ABDOMEN AP (05/19/2025 8:00 AM [...] aortogram. Selection of L SFA via R INK MAKER (3rd order) with left lower extremity angiogram. Selection of DIRECTOR INTERNAL COMMUNICATIONS with additional angiogram. Radiographic supervision and interpretation [...] TPT and peroneal artery, reconstitution of proximal DIRECTOR INTERNAL COMMUNICATIONS with mid and distal DIRECTOR INTERNAL COMMUNICATIONS with multifocal severe stenosis of proximal and mid DIRECTOR INTERNAL COMMUNICATIONS but occluded distally without reconstitution. Significant small [...] with severe stenosis, patent proximal and mid DIRECTOR INTERNAL COMMUNICATIONS with multifocal severe stenosis, patent peroneal artery Significant small vessel disease in L foot INDICATIONS: Skyler Bautista is a 84 y.o. female with PMHx significant for PAD s/p pelvic angiogram with bilateral NILAY stents s/p LLE angiogram with DIRECTOR INTERNAL COMMUNICATIONS of popliteal artery, TPT and peroneal artery [...] a hemostat. Under ultrasound guidance, the R INK MAKER was accessed using a micropuncture needle. X-ray [...] and catheter were used to select the DIRECTOR INTERNAL COMMUNICATIONS to better evaluate if it reconstituted distally. After the DIRECTOR INTERNAL COMMUNICATIONS was selected, an angiogram was obtained, which [...] procedure. SUMMARY: Significant small vessel disease. Occluded DIRECTOR INTERNAL COMMUNICATIONS and DAREN distally without reconstitution. RECOMMENDATIONS: Bed rest for 3 hours. Recommend proximal LLE amputation. Voice recognition technology was used to complete this note, and it may contain unintended errors despite the proposal manager writer's best efforts to proofread it. Please contact me with questions. TID: [id number] us Vargas Wolf MD IMG IR ORDERABLES [...] aortogram. Selection of L SFA via R INK MAKER (3rd order) with left lower extremity angiogram. Selection of DIRECTOR INTERNAL COMMUNICATIONS with additional angiogram. Radiographic supervision and interpretation [...] TPT and peroneal artery, reconstitution of proximal DIRECTOR INTERNAL COMMUNICATIONS with mid and distal DIRECTOR INTERNAL COMMUNICATIONS with multifocal severe stenosis of proximal and mid DIRECTOR INTERNAL COMMUNICATIONS but occluded distally without reconstitution. Significant small [...] with severe stenosis, patent proximal and mid DIRECTOR INTERNAL COMMUNICATIONS with multifocal severe stenosis, patent peroneal artery Significant small vessel disease in L foot INDICATIONS: Skyler Bautista is a 84 y.o. female with PMHx significant for PAD s/p pelvic angiogram with bilateral NILAY stents s/p LLE angiogram with DIRECTOR INTERNAL COMMUNICATIONS of popliteal artery, TPT and peroneal artery [...] a hemostat. Under ultrasound guidance, the R INK MAKER was accessed using a micropuncture needle. X-ray [...] an 11 cm 5 Fr sheath. Next, WARSTUFFson wire and Omniflush catheter were advanced to [...] and catheter were used to select the DIRECTOR INTERNAL COMMUNICATIONS to better evaluate if it reconstituted distally. After the DIRECTOR INTERNAL COMMUNICATIONS was selected, an angiogram was obtained, which [...] procedure. SUMMARY: Significant small vessel disease. Occluded DIRECTOR INTERNAL COMMUNICATIONS and DAREN distally without reconstitution. RECOMMENDATIONS: Bed rest for 3 hours. Recommend proximal LLE amputation. Voice recognition technology was used to complete this note, and it may contain unintended errors despite the proposal manager writer's best efforts to proofread it. Please contact me with questions. TID: [id number] us Vargas Wolf MD IMG IR ORDERABLES [...] aortogram. Selection of L SFA via R INK MAKER (3rd order) with left lower extremity angiogram. Selection of DIRECTOR INTERNAL COMMUNICATIONS with additional angiogram. Radiographic supervision and interpretation [...] TPT and peroneal artery, reconstitution of proximal DIRECTOR INTERNAL COMMUNICATIONS with mid and distal DIRECTOR INTERNAL COMMUNICATIONS with multifocal severe stenosis of proximal and mid DIRECTOR INTERNAL COMMUNICATIONS but occluded distally without reconstitution. Significant small [...] with severe stenosis, patent proximal and mid DIRECTOR INTERNAL COMMUNICATIONS with multifocal severe stenosis, patent peroneal artery Significant small vessel disease in L foot INDICATIONS: Skyler Bautista is a 84 y.o. female with PMHx significant for PAD s/p pelvic angiogram with bilateral NILAY stents s/p LLE angiogram with DIRECTOR INTERNAL COMMUNICATIONS of popliteal artery, TPT and peroneal artery [...] a hemostat. Under ultrasound guidance, the R INK MAKER was accessed using a micropuncture needle. X-ray [...] and catheter were used to select the DIRECTOR INTERNAL COMMUNICATIONS to better evaluate if it reconstituted distally. After the DIRECTOR INTERNAL COMMUNICATIONS was selected, an angiogram was obtained, which [...] procedure. SUMMARY: Significant small vessel disease. Occluded DIRECTOR INTERNAL COMMUNICATIONS and DAREN distally without reconstitution. RECOMMENDATIONS: Bed rest for 3 hours. Recommend proximal LLE amputation. Voice recognition technology was used to complete this note, and it may contain unintended errors despite the proposal manager writer's best efforts to proofread it. Please contact me with questions. TID: [id number] us Vargas Wolf MD IMG IR ORDERABLES Final Res ult * INTRAOP AIRWAY PLACEMENT (05/10/2025 12:26 PM EDT) Narrative [facility] - 05/10/2025 12:26 PM EDT Tatum [...] Unchanged and Atraumatic Insertion attempts: 1 Title: EMBROIDERY ASSISTANT us Manuel Noland MD [place] ANESTHESIA Edited Result - Final Performing Organization Address [facility] de Phone Number [facility] [address] [place] [address] * HEMOGLOBIN A1C (05/03/2025 6:37 AM EDT) Hgb A1C 5.3 4.2 - 5.6 % 05/05/2025 3:53 PM EDT [facility] Est. Avg Glucose 105 mg/dL 05/05/2025 3:53 PM EDT [facility] Blood VENOUS BLOOD / Unknown Venipuncture / Unknown 05/03/2025 6:37 AM EDT 05/03/2025 7:14 AM EDT Narrative [facility] - 05/05/2025 3:53 PM EDT REFERENCE RANGE: [...] ORDERABLES Final Resul t Performing Organization Address City/[facility]/ZIP Co de Phone Number [facility] [address] [place] [address], [place] [address] from Last 3 Months or Most Recently Relevant to Health Maintenance Additional Health Concerns Infection Onset Date Last Indicated ESBL organism Comment:ESBL urine: 05/23, 06/1205/23/2025 06/12/2025 [place] [address] Advance Directives For more information, please contact: [phone] * DNR (Latest Code Status on File) [...] 3:51 PM 05/27/2025 3:19 PM Care Teams Skeins Yarn Examiner Relationship Specialty Start Date End Date No Pcp, Per Patient PCP - General 06/04/24
--- OUTSIDE RECORDS SUMMARY | 2025-08-07 08:47 | XMS_ITS | Encounter Summary ---
Author Organization [employer] ([place], [place], [place], [place]) Address [address] [place] [address] Care Team Providers Care Digital Analyst Name Role Phone Jay Howell MD Primary Care Provider [phone] Encounter Details Date Type Department Care Team (Late st Contact Info) Description 06/13/2020 Transcribed Document [facility] Family Medicine [address] [place] [address] ProviderJessie MD [address] [place] [address] Social History Tobacco Use Types Packs/Day Years [...] 06/13/2020 6:12 EDT Electronically signed by Sivan [facility] [employer] Truck Driver Cerner at 02/04/2023 2:05 PM CDT documented in this encounter Plan of Treatment Not on file documented as of this encounter Visit Diagnoses Not on filedocumented in this encounter Care Teams Digital Analyst Relationship Specialty Start Date End Date Jay Howell MD [address] [place] [phone] PCP - General Emergency Medicine 11/12/23 documented as of this encounter
--- OUTSIDE RECORDS SUMMARY | 2025-08-07 08:47 | XMS_ITS | Encounter Summary ---
Author Organization [employer] ([place], [place], [place], [place]) Address [address] [place] [address] Care Team Providers Care Hospice Fellow Name Role Phone Jay Howell MD Primary Care Provider [phone] Encounter Details Date Type Department Care Team (Late st Contact Info) Description 06/13/2020 Transcribed Document [facility] Family Medicine [address] [place] [address] ProviderJessie MD [address] [place] [address] Social History Tobacco Use Types Packs/Day Years [...] Legal Guardian : Responsible adult Support Person/Patient Marketing Writer : Yes Support Person/Pt Rep Name : Willard Contact Password : Marvin Support Person/Pt Rep Contact Information : [phone] Want Family/Rep/Phys Notified of Admit : No [...] Obtained From : Patient Primary Language : Sinhala Preferred Communication Mode : Verbal Communication Barrier : None Electronics Tech Needed : No PALU GERBER RN - 06/13/2020 3:09 EDT Fall [...] Scale Risk Level : 25-45 Medium Risk Goodman Fall Interventions : Adequate lighting, Bed in [...] Source : Stated Height Entry Format : [place] Height, Feet : 5 ft(Converted to: 152 cm, 60 Inch) Height, Inches : 3 Inch(Converted to: 0 ft 3 Inch, 7.62 cm) Clinical Height : 160.02 cm Weight Source : Bed scale Weight Entry Format : [place] Clinical Dosing Weight : 75.32 kg Weight, Pounds : 165.7 lb Body Surface Area (BSA) : 1.79 m2 Body Mass Index : 29.4 kg/m2 (HI) Squires Body Weight : 52 kg PAUL GERBER [...] PAUL GERBER RN - 06/13/2020 3:09 EDT [place] Suicide Severity Rating Scale (C-SSRS) CSSRS Past [...] or Requests : Yes Zoroastrianism Preference : Buddhist Spiritual/Cult Concerns/Desires/Needs : Prayer Spiritual/Cultural Needs Comment [...] filedocumented in this encounter Care Teams Hospice Fellow Relationship Specialty Start Date End Date Jay Howell MD [address] [place] [phone] PCP - General Emergency Medicine 11/12/23 documented as of this encounter
--- OUTSIDE RECORDS SUMMARY | 2025-08-07 08:47 | XMS_ITS | Encounter Summary ---
Author Organization [employer] ([place], [place], [place], [place]) Address [address] [place] [address] Care Team Providers Care Prevention Specialist Name Role Phone Jay Howell MD Primary Care Provider [phone] Encounter Details Date Type Department Care Team (Late st Contact Info) Description 06/13/2020 Transcribed Document [facility] Family Medicine [address] [place] [address] ProviderJessie MD [address] [place] [address] Social History Tobacco Use Types Packs/Day Years [...] on RA. FSBS noted. Fall team and COSTUME SHOP COORDINATOR team notified but they were in another COSTUME SHOP COORDINATOR call. PT feels clammy and light headed [...] 06/13/2020 16:24 EDT Electronically signed by Sivan [facility] Conversion Photographic Processor Cerner at 02/04/2023 2:04 PM CDT documented in this encounter Plan of Treatment Not on file documented as of this encounter Visit Diagnoses Not on filedocumented in this encounter Care Teams Prevention Specialist Relationship Specialty Start Date End Date Jay Howell MD [address] [place] [phone] PCP - General Emergency Medicine 11/12/23 documented as of this encounter
--- OUTSIDE RECORDS SUMMARY | 2025-08-07 08:47 | XMS_ITS | Encounter Summary ---
Author Organization [employer] ([place], [place], [place], [place]) Address [address] [place] [address] Care Team Providers Care Automatic Nailing Machine Feeder Name Role Phone Jay Howell MD Primary Care Provider [phone] Encounter Details Date Type Department Care Team (Late st Contact Info) Description 06/13/2020 Transcribed Document [facility] [place] [place] Family Medicine [address] [place] [address] ProviderJessie MD [address] [place] [address] Social History Tobacco Use Types Packs/Day Years [...] filedocumented in this encounter Care Teams Automatic Nailing Machine Feeder Relationship Specialty Start Date End Date Jay Howell MD [address] [place] [phone] PCP - General Emergency Medicine 11/12/23 documented as of this encounter
--- OUTSIDE RECORDS SUMMARY | 2025-08-07 08:47 | XMS_ITS | Encounter Summary ---
Author Organization [employer] ([place], [place], [place], [place]) Address [address] [place] [address] Care Team Providers Care Erection Shop Supervisor Name Role Phone Jay Howell MD Primary Care Provider [phone] Encounter Details Date Type Department Care Team (Late st Contact Info) Description 06/13/2020 Transcribed Document [facility] Family Medicine [address] [place] [address] ProviderJessie MD [address] [place] [address] Social History Tobacco Use Types Packs/Day Years [...] Ministry Provided to : Patient, Family/Significant other Sikh Preference : Gnosticism FARHANA PATEL - 06/13/2020 12:13 EDT Interventions Advance Directive Information Provided : Yes Advance Directive Comment : Discussed Living Will; Ms. Montoya requested information only; Gave copy of Personal Choices booklet; Ms. Montoya reported she would call for lipcoat sprayer if/when she decides to complete one Emotional Support : Empathic/Engaged listening, Family/Significant other supported, Feelings expressed, Information provided Spiritual and Sikh : Spiritual/Sikh support provided Change, Adjustment and Loss : [...] 06/13/2020 12:13 EDT Electronically signed by Sivan [facility] Conversion Drill Runner Helper Cerner at 02/04/2023 2:00 PM CDT documented in this encounter Plan of Treatment Not on file documented as of this encounter Visit Diagnoses Not on filedocumented in this encounter Care Teams Erection Shop Supervisor Relationship Specialty Start Date End Date Jay Howell MD [address] [place] [phone] PCP - General Emergency Medicine 11/12/23 documented as of this encounter
--- OUTSIDE RECORDS SUMMARY | 2025-08-07 08:47 | XMS_ITS | Encounter Summary ---
Author Organization [employer] ([place], [place], [place], [place]) Address [address] [place] [address] Care Team Providers Care Auctioneer Automobile Name Role Phone Jay Howell MD Primary Care Provider [phone] Encounter Details Date Type Department Care Team (Late st Contact Info) Description 06/13/2020 Transcribed Document [facility] [facility] [place] [address] [place] [address] ProviderJessie MD [address] [place] [address] Social History Tobacco Use Types Packs/Day Years [...] On: 06/13/2020 13:24 EDT by JEFE SHELTON, Pattern Generator Operator-Oil Well Services Superintendent Initial Assessment I Previously Documented Living Environment [...] Listed? : Yes Medical Durable Power of Chicken Cutter Name : No JEFE SHELTON Pattern Generator Operator-Oil Well Services Superintendent - 06/13/2020 13:24 EDT Initial Assessment II Sensory and Motor Deficits : Weakness Current Home Treatments and Equipment : CPAP, Walker JEFE SHELTON Pattern Generator Operator-Oil Well Services Superintendent - 06/13/2020 13:24 EDT Discharge Needs I Anticipated Discharge To, CM : Home with home health Current Home Treatment/Equipment : Current Home Treatment/Equipment No qualifying data available. Post Acute/Home Treatments : None Documentation Status Complete : Yes JEFE SHELTON Social Worker-Oil Well Services Superintendent - 06/13/2020 13:24 EDT Discharge Needs II Professional Skilled Services : Professional Skilled Services No qualifying data available. Needs Assistance with Transportation : No Discharge Options Discussed with Patient : Acute rehabilitation, Discharge transportation, DME, Home Health, Short term rehabilitation JEFE SHELTON Pattern Generator Operator-Oil Well Services Superintendent - 06/13/2020 13:24 EDT Narrative Note Narrative Note : Patient is a low readmission risk of 38. Patient reported that she had HH in 2008 after a hip replacement. Patient stated that she has also been inpatient at [facility]. Patient reported that she is ADL independent but uses a walker when she walks around the park. Patient reported that she has transportation home. She denied having any discharge needs. Cm will continue to follow. JEFE SHELTON Pattern Generator Operator-Oil Well Services Superintendent - 06/13/2020 13:24 EDT documented in this encounter Plan of Treatment Not on file documented as of this encounter Visit Diagnoses Not on filedocumented in this encounter Care Teams Auctioneer Automobile Relationship Specialty Start Date End Date Jay Howell MD [address] [place] [phone] PCP - General Emergency Medicine 11/12/23 documented as of this encounter
--- OUTSIDE RECORDS SUMMARY | 2025-08-07 08:47 | XMS_ITS | Encounter Summary ---
Author Organization [employer] ([place], [place], [place], [place]) Address [address] [place] [address] Care Team Providers Care Neuropsychiatric Aide Name Role Phone Jay Howell MD Primary Care Provider [phone] Encounter Details Date Type Department Care Team (Late st Contact Info) Description 06/13/2020 Transcribed Document [facility] Family Medicine [address] [place] [address] ProviderJessie MD [address] [place] [address] Social History Tobacco Use Types Packs/Day Years [...] Tobacco Cues : Verbalizes understanding Activities to [place] With Smoking Urges : Verbalizes understanding Basic [...] on filedocumented in this encounter Care Teams Neuropsychiatric Aide Relationship Specialty Start Date End Date Jay Howell MD [address] [place] [phone] PCP - General Emergency Medicine 11/12/23 documented as of this encounter
--- OUTSIDE RECORDS SUMMARY | 2025-08-07 08:47 | XMS_ITS | Encounter Summary ---
Author Organization [employer] ([place], [place], [place], [place]) Address [address] [place] [address] Care Team Providers Care High School Counselor Name Role Phone Jay Howell MD Primary Care Provider [phone] Encounter Details Date Type Department Care Team (Late st Contact Info) Description 06/13/2020 Transcribed Document [facility] [place] [address] [place] [address] ProviderJessie MD [address] [place] [address] Social History Tobacco Use Types Packs/Day Years [...] in this encounter Care Teams High School Counselor Relationship Specialty Start Date End Date Jay Howell MD [address] [place] [phone] PCP - General Emergency Medicine 11/12/23 documented as of this encounter
--- OUTSIDE RECORDS SUMMARY | 2025-08-07 08:48 | XMS_ITS | Encounter Summary ---
Author Organization [employer] ([place], [place], [place], [place]) Address [address] [place] [address] Care Team Providers Care Replanting Machine Crewman Name Role Phone Jay Howell MD Primary Care Provider [phone] Encounter Details Date Type Department Care Team (Late st Contact Info) Description 08/23/[address] [facility] [place] Family Medicine [address] [place] [address] ProviderJessie MD [address] [place] [address] Social History Tobacco Use Types [...] Jessie Yuen MD - 08/23/2020 1:05 AM OCEANOGRAPHY PROFESSOR [address] [place], [place] [address] SKYLER MONTOYA :1940 Visit Time:08/22/2020 Your Visit [...] SWELLING Where: [address] [place] [address]- Business (1) Allergies Macrodantin morphine (rash, rash) nitrofurantoin (blisters, blisters) Immunizations This Visit No Immunizations Found Medications What How Much When Instructions Next Dose acetaminophen-hydrocodone ([place] 7.5 mg-325 mg oral tablet) 1 [...] range between ( 0.0 and 7.0 ) [place] #: 0.71 K/uL -- Normal range between ( 0.16 and 1.00 ) Eos #: 0.15 x10(3)/uL -- Normal range between ( 0.00 and 0.80 ) [place] %: 10.1 % -- Normal range between [...] these instructions at home: Medicines ??? Take nett-uax-iyetvro and prescription medicines only as told by [...] and water are not available, use hand furniture painter. ??? Change your dressing and packing as [...] 12/25/2012 Document Revised: 09/03/2019 Document Reviewed: 09/03/2019 [employer] Patient Education ?? 2020 [employer] Skin Abscess A skin abscess is [...] these instructions at home: Medicines ??? Take efvj-gci-jtccbqv and prescription medicines only as told by [...] and water are not available, use hand furniture painter. ??? Check your abscess every day for [...] 07/13/2006 Document Revised: 01/24/2020 Document Reviewed: 11/16/2018 [employer] Patient Education ?? 2020 [employer]. Emergency Awareness and Preventative Care STROKE is [...] Assistance with quitting is available by contacting 9-738-WEIY-NOW. This is a free resource providing counseling, [...] was given the opportunity to ask questions. Patient/Informatics Specialist Name: Patient/Informatics Specialist Signature: Relationship to Patient: Clinician/Hospital Informatics Specialist Signature: Please Provide a Telephone Number Where You Can Be Reached: Is it Permissible To Leave a Message? Date: documented in this encounter Plan of Treatment Not on file documented as of this encounter Visit Diagnoses Not on filedocumented in this encounter Care Teams Replanting Machine Crewman Relationship Specialty Start Date End Date Jay Howell MD [address] [place] [phone] PCP - General Emergency Medicine 11/12/23 documented as of this encounter
--- OUTSIDE RECORDS SUMMARY | 2025-08-07 08:48 | XMS_ITS | Encounter Summary ---
Author Organization [employer] ([place], [place], [place]) Address [address] [place] [address] Care Team Providers Care Benefits Technician Name Role Phone Jay Howell MD Primary Care Provider [phone] Encounter Details Date Type Department Care Team (Late st Contact Info) Description 06/14/2020 Transcribed Document [facility] [place] [address] [place] [address] ProviderJessie MD [address] [place] [address] Social History Tobacco Use Types [...] Yuen MD - 06/14/2020 2:41 PM CDT [facility] [place] [address] SKYLER MONTOYA :1940 Visit Time:06/13/2020 Your Visit Summary Your Care Team Admitting Physician - MARIA ELENA DAVALOS [facility] Attending Physician - MARIA ELENA [facility]OS [facility] Primary Care Physician - TARA CHEN [...] provider. This is important. Medicines ??? Take tcxm-dmx-mxknjwe and prescription medicines only as told by [...] 10/03/2006 Document Revised: 06/13/2019 Document Reviewed: 06/13/2019 [employer] Patient Education ?? 2020 [employer] Emergency Awareness and Preventative Care STROKE [...] Assistance with quitting is available by contacting 9-562-EQOQ-NOW. This is a free resource providing counseling, [...] range between ( 0.0 and 7.0 ) [place] #: 0.61 K/uL -- Normal range between ( 0.16 and 1.00 ) [place] #: 0.12 x10(3)/uL -- Normal range between ( 0.00 and 0.80 ) [place] %: 10.6 % -- Normal range between [...] was given the opportunity to ask questions. Patient/Press Hand Name: Patient/Press Hand Signature: Relationship to Patient: Clinician/Hospital Press Hand Signature: Date: documented in this encounter Plan of Treatment Not on file documented as of this encounter Visit Diagnoses Not on filedocumented in this encounter Care Teams Benefits Technician Relationship Specialty Start Date End Date Jay Howell MD [address] [place] [phone] PCP - General Emergency Medicine 11/12/23 documented as of this encounter
--- OUTSIDE RECORDS SUMMARY | 2025-08-07 08:48 | XMS_ITS | Encounter Summary ---
Author Organization [employer] ([place], [place], [place], [place]) Address [address] [place] [address] Care Team Providers Care Marketing Specialist Name Role Phone Jay Howell MD Primary Care Provider [phone] Encounter Details Date Type Department Care Team (Late st Contact Info) Description 06/14/2020 Transcribed Document [facility] [place] Family Medicine [address] [place] [address] ProviderJessie MD [address] [place] [address] Social History Tobacco Use Types Packs/Day Years [...] filedocumented in this encounter Care Teams Marketing Specialist Relationship Specialty Start Date End Date Jay Howell MD [address] [place] [phone] PCP - General Emergency Medicine 11/12/23 documented as of this encounter
--- OUTSIDE RECORDS SUMMARY | 2025-08-07 08:48 | XMS_ITS | Encounter Summary ---
Author Organization [employer] ([place], [place], [place], [place]) Address [address] [place] [address] Care Team Providers Care Community Relations Manager Name Role Phone Jay Howell MD Primary Care Provider [phone] Encounter Details Date Type Department Care Team (Late st Contact Info) Description 08/23/2020 Transcribed Document [facility] [place] [address] [place] [address] ProviderJessie MD [address] [place] [address] Social History Tobacco Use Types Packs/Day Years Used Date Smoking Tobacco: Never Assessed Comments Unknown Sex and Gender Information Value Date Recorded Sex Assigned at Not on file Legal Sex Female 7:30 PM CDT Gender Identity Not on file Sexual Orientation Not on file documented as of this encounter Miscellaneous Notes * [employer]ner Conversion Note - Jessie Yuen MD - 08/23/2020 1:35 AM REEL AND REWINDER OPERATOR ED Discharge Entered On: 08/23/2020 2:08 EST Performed On: 08/23/2020 1:35 EST by Oumou Augusitne RN Discharge Process Patient Disposition : Discharge [...] 08/23/2020 2:07 EST Electronically signed by Sivan, [facility] Conversion Medicare Sales Representative Cerner at 02/04/2023 2:21 PM CDT documented in this encounter Plan of Treatment Not on file documented as of this encounter Visit Diagnoses Not on filedocumented in this encounter Care Teams Community Relations Manager Relationship Specialty Start Date End Date Jay Howell MD [address] [place] [phone] PCP - General Emergency Medicine 11/12/23 documented as of this encounter
--- OUTSIDE RECORDS SUMMARY | 2025-08-07 08:48 | XMS_ITS | Encounter Summary ---
Author Organization [email or web address] ([place], [place], [place], [place]) Address [address] [place] [address] Care Team Providers Care Screw Machine Set Up Operator Tool Name Role Phone Jay Howell MD Primary Care Provider [phone] Encounter Details Date Type Department Care Team (Late st Contact Info) Description 06/14/2020 Transcribed Document [facility] [address] [place] [address] Cheyenne Flores MD [address] [place] [phone] Social History Tobacco Use Types Packs/Day [...] 06/13/20 16:23:00 EDT, Cardiac Diet, 60 gm carbs:[id number] george, Isolation: Standard Precautions Pending Labs Ordered PT/INR Prothrombin Time Specimen Type: Blood, Anticoagulant: Yes warfarin, AM Draw collect, 06/14/20 4:00:00 EDT, Daily, Lab Collect Electronically signed by Sivan [facility] Conversion Nutritional Services Cook Cerner at 02/04/2023 1:57 PM CDT documented in this encounter Plan of Treatment Not on file documented as of this encounter Visit Diagnoses Not on filedocumented in this encounter Care Teams Screw Machine Set Up Operator Tool Relationship Specialty Start Date End Date Jay Howell MD [address] [place] [phone] PCP - General Emergency Medicine 11/12/23 documented as of this encounter
--- OUTSIDE RECORDS SUMMARY | 2025-08-07 08:48 | XMS_ITS | Encounter Summary ---
Author Organization [employer] ([place], [place], [place], [place]) Address [address] [place] [address] Care Team Providers Care Associate Professor Of Geology Name Role Phone Jay Howell MD Primary Care Provider [phone] Encounter Details Date Type Department Care Team (Late st Contact Info) Description 08/22/2020 Transcribed Document [facility] [place] Family Medicine [address] [place] [address] ProviderJessie MD [address] [place] [address] Social History Tobacco Use Types Packs/Day Years Used Date Smoking Tobacco: Never Assessed Comments Unknown Sex and Gender Information Value Date Recorded Sex Assigned at Not on file Legal Sex Female 7:30 PM CDT Gender Identity Not on file Sexual Orientation Not on file documented as of this encounter Miscellaneous Notes * [employer]ner Conversion Note - Jessie ProviderMD - 08/22/2020 10:42 PM DEFECTIVE CIGARETTE SLITTER Pain Assessment Entered On: 08/23/2020 1:08 EST [...] filedocumented in this encounter Care Teams Associate Professor Of Geology Relationship Specialty Start Date End Date Jay Howell MD [address] [place] [phone] PCP - General Emergency Medicine 11/12/23 documented as of this encounter
--- OUTSIDE RECORDS SUMMARY | 2025-08-07 08:48 | XMS_ITS | Encounter Summary ---
Author Organization [employer] ([place], [place], [place], [place]) Address [address] [place] [address] Care Team Providers Care Infection Prevention Practitioner Name Role Phone Jay Howell MD Primary Care Provider [phone] Encounter Details Date Type Department Care Team (Late st Contact Info) Description 06/14/2020 Transcribed Document [facility] [place] [address] [place] [address] ProviderJessie MD [address] [place] [address] Social History Tobacco Use Types Packs/Day Years [...] : Yes Discharge To Care Management : Home/Residential/Shelter or Self Care -01 JENAE COREY CSW - 06/14/2020 8:53 EDT Final Narrative Note Final Narrative Note : Pt declined services. JENAE COREY CSW - 06/14/2020 8:53 EDT Electronically signed by [facility], [facility] Conversion Bricklayer Tender Cerner at 02/04/2023 2:06 PM CDT documented in this encounter Plan of Treatment Not on file documented as of this encounter Visit Diagnoses Not on filedocumented in this encounter Care Teams Infection Prevention Practitioner Relationship Specialty Start Date End Date Jay Howell MD [address] [place] [phone] PCP - General Emergency Medicine 11/12/23 documented as of this encounter
--- OUTSIDE RECORDS SUMMARY | 2025-08-07 08:48 | XMS_ITS | Encounter Summary ---
Author Organization [employer] ([place], [place], [place], [place]) Address [address] [place] [address] Care Team Providers Care Mountain Guide Name Role Phone Jay Howell MD Primary Care Provider [phone] Encounter Details Date Type Department Care Team (Late st Contact Info) Description 08/22/2020 Transcribed Document [facility] [place] Family Medicine [address] [place] [address] ProviderJessie MD [address] [place] [address] Social History Tobacco Use Types Packs/Day Years Used Date Smoking Tobacco: Never Assessed Comments Unknown Sex and Gender Information Value Date Recorded Sex Assigned at Not on file Legal Sex Female 7:30 PM CDT Gender Identity Not on file Sexual Orientation Not on file documented as of this encounter Miscellaneous Notes * Cerner Conversion Note - Historical MD Alpa - 08/22/2020 10:50 PM PROGRAM ELIGIBILITY SPECIALIST Patient: SKYLER MONTOYA Age: 79 years [...] 06/13/2020 8:52 EVA LAWS RN PCI w/ [place] stent to D1 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 femur repair. Appendectomy ([id number]). uterine suspension. Hysterectomy ([id number]). back surgury. Cholecystectomy ([id number]). Hip replacement ([id number]). cataract surgury.. Family history: Cardiomyopathy Child Stroke [...] EST Height Source Stated Height Entry Format [place] Height/Length, YEMENI (ft) 5 ft Height/Length YEMENI 3 Inch CLINICALHEIGHT 160.02 cm [place] Body Weight 52.02 kg Weight Source, ED Critical estimated dosing weight Weight Entry Format [place] Weight [place] lb 154 lb CLINICALWEIGHT 70 kg Body [...] % 33.0 % Lymph # 2.33 x10(3)/uL [place] % 10.1 % [place] # 0.71 K/uL Eos % 2.1 % Eos # 0.15 x10(3)/uL Baso % 0.4 % Baso # 0.03 x10(3)/uL Slide Review No IG# 0.04 x10(3)/uL IG% 0.60 % . Radiology results: Left tib/fib: no fx or dl Left ankle: no fx or dl. [facility] [id number] was reviewed. Last entry 07/30/20 for norco [...] Medical Plan Condition: Improved, Stable. Prescriptions: Prescription [facility]: [place] 7.5 mg-325 mg oral tablet (Prescribe): 1 Tab, Oral, Q6H, for 3 Day(s), PRN: as needed for pain, 12 Tab, 0 Refill(s) clindamycin 300 mg oral capsule (Prescribe): 1 Cap, Oral, QID, for 7 Day(s), 28 Cap, 0 Refill(s), Prescription [facility]: Bactroban 2% topical ointment (Prescribe): 1 [...] Home. Electronically signed by Sivan vernon Conversion Older Adult Social Work Specialist Cerner at 02/04/2023 2:07 PM CDT documented in this encounter Plan of Treatment Not on file documented as of this encounter Visit Diagnoses Not on filedocumented in this encounter Care Teams Mountain Guide Relationship Specialty Start Date End Date Jay Howell MD [address] [place] [phone] PCP - General Emergency Medicine 11/12/23 documented as of this encounter
--- OUTSIDE RECORDS SUMMARY | 2025-08-07 08:48 | XMS_ITS | Encounter Summary ---
Author Organization [employer] ([place], [place], [place], [place]) Address [address] [place] [address] Care Team Providers Care Jewelry Inspector Name Role Phone Jay Howell MD Primary Care Provider [phone] Encounter Details Date Type Department Care Team (Late st Contact Info) Description 08/23/2020 Transcribed Document [facility] [place] Family Medicine [address] [place] [address] ProviderJessie MD [address] [place] [address] Social History Tobacco Use Types Packs/Day Years Used Date Smoking Tobacco: Never Assessed Comments Unknown Sex and Gender Information Value Date Recorded Sex Assigned at Not on file Legal Sex Female 7:30 PM CDT Gender Identity Not on file Sexual Orientation Not on file documented as of this encounter Miscellaneous Notes * Cerner Conversion Note - Historical ProviderMD - 08/23/2020 1:04 AM DIGITAL MEDIA ASSOCIATE Electronically signed by [facility], [facility] Conversion Head Of Loss Prevention Cerner at 02/04/2023 1:59 PM CDT documented in this encounter Plan of Treatment Not on file documented as of this encounter Visit Diagnoses Not on filedocumented in this encounter Care Teams Jewelry Inspector Relationship Specialty Start Date End Date Jay Howell MD [address] [place] [phone] PCP - General Emergency Medicine 11/12/23 documented as of this encounter
--- OUTSIDE RECORDS SUMMARY | 2025-08-07 08:48 | XMS_ITS | Encounter Summary ---
Author Organization [employer] ([place], [place], [place], [place]) Address [address] [place] [address] Care Team Providers Care Motorcycle Maker Name Role Phone Jay Howell MD Primary Care Provider [phone] Encounter Details Date Type Department Care Team (Late st Contact Info) Description 06/14/2020 Transcribed Document [facility] [place] [address] [place] [address] ProviderJessie MD [address] [place] [address] Social History Tobacco Use Types Packs/Day Years [...] 06/14/2020 14:23 EDT Electronically signed by Sivan [facility] Conversion Carton Catcher Cerner at 02/04/2023 2:18 PM CDT documented in this encounter Plan of Treatment Not on file documented as of this encounter Visit Diagnoses Not on filedocumented in this encounter Care Teams Motorcycle Maker Relationship Specialty Start Date End Date Jay Howell MD [address] [place] [phone] PCP - General Emergency Medicine 11/12/23 documented as of this encounter
--- OUTSIDE RECORDS SUMMARY | 2025-08-07 08:48 | XMS_ITS | Encounter Summary ---
Author Organization [employer] ([place], [place], [place], [place]) Address [address] [place] [address] Care Team Providers Care Ec Teacher Name Role Phone Jay Howell MD Primary Care Provider [phone] Encounter Details Date Type Department Care Team (Late st Contact Info) Description 06/14/2020 Transcribed Document [facility] [place] Family Medicine [facility] [place] [address] ProviderJessie MD [address] [place] [address] Social History Tobacco Use Types Packs/Day Years [...] Diagnoses: None Author: FREDY YAÑEZ MD-CAR BASIC Billing Adjudicator: None Subjective NAD Health Status Allergies: Allergic [...] list: All Problems Arthritis / SNOMED CT 0501244 / Confirmed Atrial fibrillation with RVR / SNOMED CT 0120930558 / Confirmed Blood clot / SNOMED CT 257047034 / Confirmed Cataract / Patient Care / Confirmed Chest pain / SNOMED CT 94615442 / Complaint of Clotting disorder / SNOMED CT 698295944 / Confirmed COPD / SNOMED CT 05768134 / Confirmed Coronary artery disease / SNOMED CT 3873593650 / Confirmed Diabetes mellitus / SNOMED CT 891833503 / Confirmed GERD - Gastro-esophageal reflux disease / SNOMED CT 8589305466 / Confirmed Glaucoma / Patient Care / Confirmed Chronic anticoagulation / SNOMED CT 839254135 / Confirmed Hx of pulmonary embolus / SNOMED CT 940764413 / Confirmed High blood pressure / SNOMED CT 64806837 / Confirmed History of obstructive sleep apnea / IMO 30879357 / Confirmed Hyperlipidemia / SNOMED CT 05338295 / Confirmed Multiple renal cysts / SNOMED CT 635024472 / Confirmed Emphysema / SNOMED CT 488075037 / Confirmed Apnea, sleep / SNOMED CT 569470810 / Confirmed Stented coronary artery / SNOMED CT 2625257854 / Confirmed UTI - Urinary tract infection / SNOMED CT 2548666728 / Confirmed, Active Problems (21) Apnea, sleep [...] of motion, Normal strength. Integumentary: Warm, Dry, [place]. Neurologic: Alert, Oriented. Psychiatric: Cooperative, Appropriate mood & affect. Results Review JUN 14 05:28 136 105 7 / H 114 3.6 24 0.60 \ JUN 14 05:28 \ 12.0 / 5.2 177 / 35.2 \ Cardiac Markers (Current Encounter/Past 24 Hours) No Cardiac Marker Results Found (Past 24 Hours) Radiology Results (Last 48 hours) [id number] -- 06/13/2020 15:07 CR Chest 1 Vw [...] No change from prior. No acute process. [facility] IMPRESSION: Angiographically, the patient has severe [...] Dr. Garcia. Electronically signed by Sivan [facility] Conversion Fashion Editor Cerner at 02/04/2023 2:15 PM CDT documented in this encounter Plan of Treatment Not on file documented as of this encounter Visit Diagnoses Not on filedocumented in this encounter Care Teams Ec Teacher Relationship Specialty Start Date End Date Jay Howell MD [address] [place] [phone] PCP - General Emergency Medicine 11/12/23 documented as of this encounter
--- OUTSIDE RECORDS SUMMARY | 2025-08-07 08:48 | XMS_ITS | Encounter Summary ---
Author Organization [employer] ([place], [place], [place], [place]) Address [address] [place] [address] Care Team Providers Care Guideman Name Role Phone Jay Howell MD Primary Care Provider [phone] Encounter Details Date Type Department Care Team (Late st Contact Info) Description 06/14/2020 Transcribed Document [facility] Family Medicine [address] [place] [address] ProviderJessie MD [address] [place] [address] Social History Tobacco Use Types Packs/Day Years [...] 06/14/2020 6:24 EDT Electronically signed by Sivan [facility] Conversion Automatic I Threading Machine Feeder Cerner at 02/04/2023 2:11 PM CDT documented in this encounter Plan of Treatment Not on file documented as of this encounter Visit Diagnoses Not on filedocumented in this encounter Care Teams Guideman Relationship Specialty Start Date End Date Jay Howell MD [address] [place] [phone] PCP - General Emergency Medicine 11/12/23 documented as of this encounter
--- OUTSIDE RECORDS SUMMARY | 2025-08-07 08:48 | XMS_ITS | Encounter Summary ---
Author Organization [employer] ([place], [place], [place], [place]) Address [address] [place] [address] Care Team Providers Care Gate Guard Name Role Phone Jay Howell MD Primary Care Provider [phone] Encounter Details Date Type Department Care Team (Late st Contact Info) Description 08/22/2020 Transcribed Document [facility] [place] [address] [place] [address] ProviderJessie MD [address] [place] [address] Social History Tobacco Use Types Packs/Day Years Used Date Smoking Tobacco: Never Assessed Comments Unknown Sex and Gender Information Value Date Recorded Sex Assigned at Not on file Legal Sex Female 7:30 PM CDT Gender Identity Not on file Sexual Orientation Not on file documented as of this encounter Miscellaneous Notes * Cerner Conversion Note - Jessie Yuen MD - 08/22/2020 8:49 PM REAL ESTATE REPRESENTATIVE ED Triage Entered On: 08/22/2020 20:57 [...] : 3 - Urgent Tracking Group : [facility] ED LUCINDA FOFANA RN - 08/22/2020 20:52 [...] 20:57:39 EST) Problems(Active) Apnea, sleep (SNOMED CT :180518143 ) Name of Problem: Apnea, sleep ; Recorder: JUAN LUIS GIL RN; Confirmation: Confirmed ; Classification: Medical ; Code: [id number] ; Contributor System: PowerChart ; Last Updated: 11/12/2014 10:12 EST ; Life Cycle Date: 11/12/2014 ; Life Cycle Status: Active ; Vocabulary: SNOMED CT Arthritis (SNOMED CT :7889337 ) Name of Problem: Arthritis ; Recorder: KENYON CHAMBERS RN; Confirmation: Confirmed ; Classification: Medical ; Code: 7683154 ; Contributor System: PowerChart ; Last Updated: 04/10/2016 8:04 EDT ; Life Cycle Date: 08/13/2013 ; Life Cycle Status: Active ; Vocabulary: SNOMED CT Atrial fibrillation with RVR (SNOMED CT :6656070991 ) Name of Problem: Atrial fibrillation with RVR ; Recorder: SANG RICO APRN; Confirmation: Confirmed ; Classification: Medical ; Code: 1220669345 ; Contributor System: PowerChart ; Last Updated: 04/10/2016 8:05 EDT ; Life Cycle Date: 04/10/2016 ; Life Cycle Status: Active ; Responsible Provider: SANG RICO APRN; Vocabulary: SNOMED CT Blood clot (SNOMED CT :066867323 ) Name of Problem: Blood clot ; Recorder: KENYON CHAMBERS RN; Confirmation: Confirmed ; Classification: Patient Stated ; Code: [id number] ; Contributor System: PowerChart ; Last Updated: [...] Vocabulary: Patient Care Chest pain (SNOMED CT :14208303 ) Name of Problem: Chest pain ; Recorder: SANG RICO APRN; Confirmation: Complaint of ; Classification: Medical ; Code: 31908080 ; Contributor System: PowerChart ; Last Updated: 04/10/2016 8:05 EDT ; Life Cycle Status: Active ; Responsible Provider: SANG RICO APRN; Vocabulary: SNOMED CT Chronic anticoagulation (SNOMED CT :594136279 ) Name of Problem: Chronic anticoagulation ; Recorder: SANG RICO APRN; Confirmation: Confirmed ; Classification: Medical ; Code: 869667846 ; Contributor System: PowerChart ; Last Updated: 04/10/2016 8:05 EDT ; Life Cycle Date: 04/10/2016 ; Life Cycle Status: Active ; Responsible Provider: SANG RICO APRN; Vocabulary: SNOMED CT Clotting disorder (SNOMED CT :311181677 ) Name of Problem: Clotting disorder ; Recorder: KENYON CHAMBERS RN; Confirmation: Confirmed ; Classification: Patient Stated ; Code: 349256490 ; Contributor System: PowerChart ; Last Updated: 03/28/2014 19:29 EDT ; Life Cycle Date: 08/13/2013 ; Life Cycle Status: Active ; Vocabulary: SNOMED CT COPD (SNOMED CT :98392184 ) Name of Problem: COPD ; Recorder: KENYON CHAMBERS RN; Confirmation: Confirmed ; Classification: Medical ; Code: 55052988 ; Contributor System: Channel IntellectChart ; Last Updated: 04/10/2016 8:03 EDT ; Life Cycle Date: 08/13/2013 ; Life Cycle Status: Active ; Vocabulary: SNOMED CT Coronary artery disease (SNOMED CT :0222254414 ) Name of Problem: Coronary artery disease ; Recorder: KENYON CHAMBERS RN; Confirmation: Confirmed ; Classification: Medical ; Code: 2864151137 ; Contributor System: PowerChart ; Last Updated: 04/10/2016 8:03 EDT ; Life Cycle Date: 08/13/2013 ; Life Cycle Status: Active ; Vocabulary: SNOMED CT Diabetes mellitus (SNOMED CT :749631788 ) Name of Problem: Diabetes mellitus ; Recorder: KENYON CHAMBERS RN; Confirmation: Confirmed ; Classification: Medical ; Code: 681202435 ; Contributor System: PowerChart ; Last Updated: 04/10/2016 8:04 EDT ; Life Cycle Date: 08/13/2013 ; Life Cycle Status: Active ; Vocabulary: SNOMED CT Emphysema (SNOMED CT :105524033 ) Name of Problem: Emphysema ; Recorder: JUAN LUIS GIL RN; Confirmation: Confirmed ; Classification: Medical ; Code: 910249416 ; Contributor System: PowerChart ; Last Updated: 11/12/2014 10:11 EST ; Life Cycle Date: 11/12/2014 ; Life Cycle Status: Active ; Vocabulary: SNOMED CT GERD - Gastro-esophageal reflux disease (SNOMED CT :2233593439 ) Name of Problem: GERD - Gastro-esophageal reflux disease ; Recorder: KENYON CHAMBERS RN; Confirmation: Confirmed ; Classification: Medical ; Code: 3308192207 ; Contributor System: Channel IntellectChart ; Last Updated: 04/10/2016 8:03 EDT ; [...] Patient Care High blood pressure (SNOMED CT :53348345 ) Name of Problem: High blood pressure ; Recorder: KENYON CHAMBERS RN; Confirmation: Confirmed ; Classification: Medical ; Code: 65861933 ; Contributor System: PowerChart ; Last Updated: 04/10/2016 8:03 EDT ; Life Cycle Date: 08/13/2013 ; Life Cycle Status: Active ; Vocabulary: SNOMED CT History of obstructive sleep apnea (IMO :04153382 ) Name of Problem: History of obstructive sleep apnea ; Recorder: SYSTEM, SYSTEM; Confirmation: Confirmed ; Classification: Medical ; Code: 28875847 ; Last Updated: 12/20/2018 12:01 EST ; Life Cycle Date: 12/20/2018 ; Life Cycle Status: Active ; Vocabulary: IMO Hx of pulmonary embolus (SNOMED CT :216580702 ) Name of Problem: Hx of pulmonary embolus ; Recorder: SANG RICO APRN; Confirmation: Confirmed ; Classification: Medical ; Code: 245617704 ; Contributor System: Channel IntellectChart ; Last Updated: 04/10/2016 8:05 EDT ; Life Cycle Date: 04/10/2016 ; Life Cycle Status: Active ; Responsible Provider: SANG RICO APRN; Vocabulary: SNOMED CT Hyperlipidemia (SNOMED CT :14613990 ) Name of Problem: Hyperlipidemia ; Recorder: KENYON CHAMBERS RN; Confirmation: Confirmed ; Classification: Medical ; Code: 49366484 ; Contributor System: Channel IntellectChart ; Last Updated: 04/10/2016 8:03 EDT ; Life Cycle Date: 08/13/2013 ; Life Cycle Status: Active ; Vocabulary: SNOMED CT Multiple renal cysts (SNOMED CT :535706773 ) Name of Problem: Multiple renal cysts ; Recorder: KENYON CHAMBERS RN; Confirmation: Confirmed ; Classification: Medical ; Code: 931805675 ; Contributor System: Channel IntellectChart ; Last Updated: 04/10/2016 8:04 EDT ; Life Cycle Date: 08/13/2013 ; Life Cycle Status: Active ; Vocabulary: SNOMED CT Stented coronary artery (SNOMED CT :4974822292 ) Name of Problem: Stented coronary artery ; Recorder: KENYON CHAMBERS RN; Confirmation: Confirmed ; Classification: Medical ; Code: 2260598518 ; Contributor System: Channel IntellectChart ; Last Updated: 04/10/2016 8:03 EDT ; Life Cycle Date: 08/13/2013 ; Life Cycle Status: Active ; Vocabulary: SNOMED CT UTI - Urinary tract infection (SNOMED CT :0521500026 ) Name of Problem: UTI - Urinary tract infection ; Recorder: KENYON CHAMBERS RN; Confirmation: Confirmed ; Classification: Medical ; Code: 6283767556 ; Contributor System: Channel IntellectChart ; Last Updated: 04/10/2016 8:04 EDT ; Life Cycle Date: 08/13/2013 ; Life Cycle Status: Active ; Vocabulary: SNOMED CT Diagnoses(Active) Leg pain-swelling Date: 08/22/2020 ; Diagnosis Type: Reason For Visit ; Confirmation: Complaint of ; Clinical Dx: Leg pain-swelling ; Classification: Medical ; Clinical Service: Emergency medicine ; Code: PNED ; Probability: 0 ; Diagnosis Code: [id number] ED Height and Weight Height Source : Stated Height Entry Format : [place] Height, Feet : 5 ft(Converted to: 152 cm, 60 Inch) Height, Inches : 3 Inch(Converted to: 0 ft 3 Inch, 7.62 cm) Clinical Height : 160.02 cm Weight Source, ED : Critical estimated dosing weight Weight Entry Format : [place] Weight, Pounds : 154 lb Clinical Dosing Weight : 70 kg Body Surface Area (BSA) : 1.73 m2 Body Mass Index : 27.3 kg/m2 (HI) [place] Body Weight (IBW) : 52.02 kg LUCINDA FOFANA RN - 08/22/2020 20:52 EST Electronically signed by [facility], [facility] Conversion Coding Advisor Cerner at 02/04/2023 2:09 PM CDT documented in this encounter Plan of Treatment Not on file documented as of this encounter Visit Diagnoses Not on filedocumented in this encounter Care Teams Gate Guard Relationship Specialty Start Date End Date Jay Howell MD [address] [place] [phone] PCP - General Emergency Medicine 11/12/23 documented as of this encounter
--- OUTSIDE RECORDS SUMMARY | 2025-08-07 08:48 | XMS_ITS | Encounter Summary ---
Author Organization [employer] ([place], [place], [place], [place]) Address [address] [place] [address] Care Team Providers Care Decating Machine Operator Name Role Phone Jay Howell MD Primary Care Provider [phone] Encounter Details Date Type Department Care Team (Late st Contact Info) Description 06/14/2020 Transcribed Document [facility] [place] [address] [place] [address] ProviderJessie MD [address] [place] [address] Social History Tobacco Use Types Packs/Day Years Used Date Smoking Tobacco: Never Assessed Comments Unknown Sex and Gender Information Value Date Recorded Sex Assigned at Not on file Legal Sex Female 7:30 PM CDT Gender Identity Not on file Sexual Orientation Not on file documented as of this encounter Miscellaneous Notes * Cerner Conversion Note - Jessie ProviderMD - 06/14/2020 2:00 AM CDT Curve Saw Operator Details Entered On: 06/14/2020 2:51 EDT [...] PAUL GERBER RN - 06/14/2020 2:51 EDT Electronically signed by Gayle Finnegan Conversion [employer]els Product Development Manager Cerner at 02/04/2023 1:59 PM CDT documented in this encounter Plan of Treatment Not on file documented as of this encounter Visit Diagnoses Not on filedocumented in this encounter Care Teams Decating Machine Operator Relationship Specialty Start Date End Date Jay Howell MD [address] [place] [phone] PCP - General Emergency Medicine 11/12/23 documented as of this encounter
--- OUTSIDE RECORDS SUMMARY | 2025-08-07 08:49 | XMS_ITS | Encounter Summary ---
Author Organization [employer] ([place], [place], [place], [place]) Address [address] [place] [address] Care Team Providers Care Ice Skating Instructor Name Role Phone Jay Howell MD Primary Care Provider [phone] Encounter Details Date Type Department Care Team (Late st Contact Info) Description 03/03/2021 Transcribed Document [facility] [place] [facility] [place] [address] ProviderJessie MD [address] [place] [id number] Social History Tobacco Use Types Packs/Day Years Used Date Smoking Tobacco: Never Assessed Comments Unknown Sex and Gender Information Value Date Recorded Sex Assigned at Not on file Legal Sex Female 7:30 PM CDT Gender Identity Not on file Sexual Orientation Not on file documented as of this encounter Miscellaneous Notes * Cerner Conversion Note - eJssie ProviderMD - 03/03/2021 5:15 PM CDT ED [...] on filedocumented in this encounter Care Teams Ice Skating Instructor Relationship Specialty Start Date End Date Jay Howell MD [address] [place] [phone] PCP - General Emergency Medicine 11/12/23 documented as of this encounter
--- OUTSIDE RECORDS SUMMARY | 2025-08-07 08:49 | XMS_ITS | Encounter Summary ---
Author Organization [employer] ([place], [place], [place], [place]) Address [address] [place] [address] Care Team Providers Care Production Painter Name Role Phone Jay Howell MD Primary Care Provider [phone] Encounter Details Date Type Department Care Team (Late st Contact Info) Description 02/13/2021 Transcribed Document [facility] Medicine [address] [place] [address] ProviderJessie MD [address] [place], [place] [id number] Social History Tobacco Use Types Packs/Day Years [...] counseling. ??? Working with a diet and nutritional services cook (dietitian) to help create a food plan [...] for some people. General instructions ??? Take vslg-fjq-pilmehp and prescription medicines and supplements only as [...] provider. Document Revised: 09/26/2018 Document Reviewed: 09/26/2018 [employer] It Original Patient Education ? 2020 [employer]. Segura's Esophagus Segura's esophagus occurs when the [...] Tomatoes and foods made with tomatoes. ? Bovey or spicy foods. ? Chocolate and peppermint. ??? Do not drink alcohol. General instructions ??? Take orpb-axx-blborvv and prescription medicines only as told by [...] provider. Document Revised: 01/29/2019 Document Reviewed: 01/29/2019 [employer] It Original Patient Education ? 2020 [employer]. ESOPHAGOGASTRODUODENOSCOPY Care After Read the instructions outlined [...] eating solid foods. General instructions ??? Take pebp-zzf-xkoqpei and prescription medicines only as told by [...] provider. Document Revised: 01/01/2019 Document Reviewed: 01/23/2017 [employer] It Original Patient Education ? 2020 [employer] Inc. Gastritis, Adult Gastritis is inflammation of [...] medicines. These include steroids, antibiotics, and some inzb-jzu-oukbdis medicines, such as aspirin or ibuprofen. ??? [...] these instructions at home: Medicines ??? Take suvv-mhj-oitnstx and prescription medicines only as told by [...] Reviewed: 02/20/2019 Elsevier Patient Education ? 2020 [employer] It [employer] Inc. Colonoscopy, Adult A colonoscopy is a [...] including vitamins, herbs, eye drops, creams, and nlfd-tvq-lxboctm medicines. ??? Any problems you or family [...] tells you to take them. ??? Taking ishi-aig-nglbjrq medicines, vitamins, herbs, and supplements. General instructions [...] provider. Document Revised: 04/25/2020 Document Reviewed: 04/25/2020 [employer] It Original Patient Education ? 2020 [employer] Inc. Colon Polyps Polyps are tissue growths [...] provider. Document Revised: 01/18/2019 Document Reviewed: 01/18/2019 [employer] It Original Patient Education ? 2020 [employer]. documented in this encounter Plan of Treatment Not on file documented as of this encounter Visit Diagnoses Not on filedocumented in this encounter Care Teams Production Painter Relationship Specialty Start Date End Date Jay Howell MD [address] [place] [phone] PCP - General Emergency Medicine 11/12/23 documented as of this encounter
--- OUTSIDE RECORDS SUMMARY | 2025-08-07 08:49 | XMS_ITS | Encounter Summary ---
Author Organization [employer] ([place], [place], [place], [place]) Address [address] [place] [address] Care Team Providers Care Char House Supervisor Name Role Phone Jay Howell MD Primary Care Provider [phone] Encounter Details Date Type Department Care Team (Late st Contact Info) Description 06/19/2020 Transcribed Document [facility] [place] Medicine [address] [place] [address] ProviderJessie MD [address] [place] [address] Social History Tobacco Use Types Packs/Day Years [...] On: 06/19/2020 12:12 EDT by Sri Kruse, Refrigeration Repair Supervisor Patient Resource Center Provider Status : EST [...] at ED : Other Primary Language : Vincentian [facility] Resource [place] Comment : Patient needs follow ups with PCP and Cardiology. Appointment already scheduled with Gabriella Asencio. I called and scheduled appointment with Dr. Tara Moeller and called patient with appointment. Follow Up Needed : No Sri Kruse, Refrigeration Repair Supervisor - 06/19/2020 12:12 EDT Electronically signed by Sivan [facility] Conversion Pin Sorter And Bagger Cerner at 02/04/2023 2:15 PM CDT documented in this encounter Plan of Treatment Not on file documented as of this encounter Visit Diagnoses Not on filedocumented in this encounter Care Teams Char House Supervisor Relationship Specialty Start Date End Date Jay Howell MD [address] [place] [phone] PCP - General Emergency Medicine 11/12/23 documented as of this encounter
--- OUTSIDE RECORDS SUMMARY | 2025-08-07 08:49 | XMS_ITS | Encounter Summary ---
Author Organization [employer] ([place], [place], [place], [place]) Address [address] [place] [address] Care Team Providers Care Incoming Freight Clerk Name Role Phone Jay Howell MD Primary Care Provider [phone] Encounter Details Date Type Department Care Team (Late st Contact Info) Description 03/03/2021 Transcribed Document [facility] [place] [facility] [place] [address] ProviderJessie MD [address] [place] [address] Social History Tobacco Use Types [...] Jessie ProviderMD - 03/03/2021 5:09 PM CDT [facility] [place] [address] SKYLER MONTOYA :1940 Visit Time:03/03/2021 Your Visit [...] call you with a follow-up appointment Where: [address] [place] [address] [facility] (1) Allergies Macrodantin morphine (rash, rash) Immunizations This Visit No Immunizations Found Medications What How Much When Instructions Next Dose acetaminophen-hydrocodone ([place] 7.5 mg-325 mg oral tablet) 1 Tablet(s) Oral Every 6 Hours as needed for for pain Pickup at [place] [address] lidocaine topical (Lidoderm 5% topical film) 1 Patch(es) TransDermal Every Day Pickup at [place] [address] ALPRAZolam (Xanax 0.5 mg oral tablet) 1 [...] Information [facility] 712: [address] [place] [id number] [phone] The home medications listed are only as [...] that cause pain. General instructions ??? Take egkw-cpy-gpsnitg and prescription medicines only as told by [...] provider. Document Revised: 02/18/2020 Document Reviewed: 02/18/2020 [employer] Patient Education ?? 2020 [employer]. Emergency Awareness and Preventative Care STROKE is [...] Assistance with quitting is available by contacting 2-975-KHCI-NOW. This is a free resource providing counseling, [...] was given the opportunity to ask questions. Patient/Travel Guide Name: Patient/Travel Guide Signature: Relationship to Patient: Clinician/Hospital Travel Guide Signature: Please Provide a Telephone Number Where You Can Be Reached: Is it Permissible To Leave a Message? Date: Electronically signed by Sivan [facility] Conversion Sales Professional Cerner at 02/04/2023 1:58 PM CDT documented in this encounter Plan of Treatment Not on file documented as of this encounter Visit Diagnoses Not on filedocumented in this encounter Care Teams Incoming Freight Clerk Relationship Specialty Start Date End Date Jay Howell MD [address] [place] [phone] PCP - General Emergency Medicine 11/12/23 documented as of this encounter
--- OUTSIDE RECORDS SUMMARY | 2025-08-07 08:49 | XMS_ITS | Encounter Summary ---
Author Organization [employer] ([place], [place], [place], [place]) Address [address] [place] [address] Care Team Providers Care Bundle Cutter Name Role Phone Jay Howell MD Primary Care Provider [phone] Encounter Details Date Type Department Care Team (Late st Contact Info) Description 03/03/2021 Transcribed Document [facility] [place] Family Medicine [address] [place] [address] ProviderJessie MD [address] [place] [phone] Social History Tobacco Use Types Packs/Day Years [...] 03/03/2021 17:11 EDT Electronically signed by Sivan [facility] Conversion Director Of Database Marketing Cerner at 02/04/2023 2:10 PM CDT documented in this encounter Plan of Treatment Not on file documented as of this encounter Visit Diagnoses Not on filedocumented in this encounter Care Teams Bundle Cutter Relationship Specialty Start Date End Date Jay Howell MD [address] [place] [phone] PCP - General Emergency Medicine 11/12/23 documented as of this encounter
--- OUTSIDE RECORDS SUMMARY | 2025-08-07 08:49 | XMS_ITS | Encounter Summary ---
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 femur repair. Appendectomy (216363032). uterine suspension. Hysterectomy (473694263). back surgury. Cholecystectomy (81236955). Hip replacement ([id number]). cataract surgury.. Family history: Cardiomyopathy Child Stroke [...] EDT Height Source Stated Height Entry Format [place] Height/Length, UZBEK (ft) 5 ft Height/Length UZBEK 3 Inch CLINICALHEIGHT 160.02 cm [place] Body Weight 52.02 kg Weight Source, ED Critical estimated dosing weight Weight Entry Format [place] Weight [place] lb 154 lb CLINICALWEIGHT 70 kg Body [...] Radiology results: Radiology Results (Last 48 hours) [id number] -- 03/03/2021 15:59 CR Hip Uni Comp [...] 17:04 EDT, Discharge to: Home. Prescriptions: Prescription Finished Goods Planner Pharmacy: [place] 7.5 mg-325 mg oral tablet (Prescribe): 1 [...] on filedocumented in this encounter Care Teams Sporting Goods Sales Manager Relationship Specialty Start Date End Date Jay Howell MD [address] [place] [phone] PCP - General Emergency Medicine 11/12/23 documented as of this encounter
--- OUTSIDE RECORDS SUMMARY | 2025-08-07 08:49 | XMS_ITS | Encounter Summary ---
Author Organization [employer] ([place], [place], [place], [place]) Address [address] [place] [address] Care Team Providers Care Assistant Housekeeping Manager Name Role Phone Jay Howell MD Primary Care Provider [phone] Encounter Details Date Type Department Care Team (Late st Contact Info) Description 02/13/2021 Transcribed Document [facility] Family [facility] [place] [address] ProviderJessie MD [address] [place], [place] [id number] Social History Tobacco Use Types Packs/Day Years [...] Source : Stated Height Entry Format : [place] Height, Feet : 5 ft(Converted to: 152 cm, 60 Inch) Height, Inches : 4 Inch(Converted to: 0 ft 4 Inch, 10.16 cm) Clinical Height : 162.56 cm Weight Source : Standing scale Weight Entry Format : [place] Clinical Dosing Weight : 71.64 kg Weight, Pounds : 157.6 lb Body Surface Area (BSA) : 1.77 m2 Body Mass Index : 27.1 kg/m2 (HI) [place] Body Weight : 54 kg Ludivina Tompkins [...] test? : No Ludivina Tompkins RN-PATIENT CARE [facility] NON-EXEMPT - 02/13/2021 10:47 EDT Anesthesia/Transfusion History Family History of Anesthesia Reaction : Prior transfusion reaction Type of Transfusion Reaction : Hemolytic reaction Transfusion History : Prior anesthesia without reaction Family History of Anesthesia Reaction : None Ludivina Tompkins RN-PATIENT CARE [facility] NON-EXEMPT - 02/13/2021 10:47 EDT Functional Assessment Living Situation : Home Current Home Treatments : Blood glucose monitoring, CPAP Ludivina Tompkins RN-PATIENT CARE [facility] NON-EXEMPT - 02/13/2021 10:47 EDT [place] Suicide Severity Rating Scale (C-SSRS) CSSRS Past Month Wish to be : No CSSRS Past Month Suicidal Thoughts : No CSSRS Lifetime Suicide Behavior : No Suicide Severity Rating Score : 0 Suicide Severity Rating : No Additional Care Required at this time Ludivina Tompkins RN-PATIENT CARE [facility] NON-EXEMPT - 02/13/2021 10:47 EDT Psychosocial History Chronic/Terminal Illness w/Freq Visits : No Currently in Unsafe Situation : No Ludivina Tompkins RN-PATIENT CARE [facility] NON-EXEMPT - 02/13/2021 10:47 EDT Advance Directive Patient has Advance Directive *Q : No, patient refuses Advance Directive information Ludivina Tompkins RN-PATIENT CARE [facility] NON-EXEMPT - 02/13/2021 10:47 EDT General Info Preferred Name : ilsa Support Person/Patient Ruby On Rails Consultant : Yes Support Person/Pt Rep Name : Willard Contact Password : Marvin Support Person/Pt Rep Contact Information : [phone] Want Family/Rep/Phys Notified of Admit : No Emergency Contact #1 : Johnny Montoya Emergency Contact #1 Emergency Contact #1 Relationship : spouse Emergency Contact #2 : - Emergency Contact #2 Phone Number : - Emergency Contact #2 Relationship : - Primary Language : Guyanese Preferred Communication Mode : Verbal Communication Barrier : None Balance Sheet Analyst Needed : Ludivina Tong RN-PATIENT CARE BEDSIDE [...] Scale Risk Level : 25-45 Medium Risk [place] Fall Interventions : Adequate lighting, Bed in [...] EDT Electronically signed by Gayle Finnegan Conversion Equipment Operation Instructor Cerner at 02/04/2023 2:06 PM CDT documented in this encounter Plan of Treatment Not on file documented as of this encounter Visit Diagnoses Not on filedocumented in this encounter Care Teams Assistant Housekeeping Manager Relationship Specialty Start Date End Date Jay Howell MD [address] [place] [phone] PCP - General Emergency Medicine 11/12/23 documented as of this encounter
--- OUTSIDE RECORDS SUMMARY | 2025-08-07 08:49 | XMS_ITS | Encounter Summary ---
Author Organization [facility] Address [address] [place] [address] Care Team Providers Care Postmaster Name Role Phone Jay Howell MD Primary Care Provider [phone] Reason for Visit * Reason Onset Date Comments Returned Call 07/02/2025 Encounter Details Date Type Department Care Team (Late st Contact Info) Description 07/02/[address] [facility] Urology [address] [place] [address] Returned Call Social History Tobacco [...] drink first t kathleen in the morning (EYE-CLIENT SERVICES REPRESENTATIVE) to steady your nerves or to [...] Clinical Concern/Question Reason for Call: Sarah with [facility] in [place] called, saying that pt needs a STAT appt for a void trail. They have done 2 but she failed both of them. I explained we need a referral, but she is saying they cannot send us a referral or records until we send them a request for the referral and records. Their fax for medical records is [phone]. Please give her a call back. Thanks! Best contact number: Other: [phone] Optimal time of day to reach caller: ANYTIME Additional comments/information from caller: None Note: Please do not reply to this message. Follow-up communication and further actions as a result of this message need to be communicated with the patient directly, if the patient is not active onMyChart. If the patient is active on MyChart, they will receive notification of the communication/outcome via [employer]. documented in this encounter Plan of Treatment [...] documented as of this encounter Care Teams Postmaster Relationship Specialty Start Date End Date Jay Howell MD [address] [place], [place] [address] PCP - General 03/08/21 documented as of this encounter
--- OUTSIDE RECORDS SUMMARY | 2025-08-07 08:49 | XMS_ITS | Encounter Summary ---
Author Organization [facility] Address [address] [place] [address] Care Team Providers Care Laborer Powerhouse Name Role Phone Jay Howell MD Primary Care Provider Encounter Details Date Type Department Care Team (Late st Contact Info) Description 01/20/2024 Ophth Exam [facility] [address] [place] [address] Joselito Garza MD [address] [place] [address] Social History Tobacco Use Types [...] slept in a correction (including now)? No 01/23/2024 CAGE ASSESSMENT Answer [...] drink first t kathleen in the morning (EYE-REMNANT SORTER) to steady your nerves or to get rid of a hangover? 0 01/21/2024 CAGE Questionnaire Score 0 024 Utilities Answer Date Recorded In the past 12 months has th e [employer], gas, oil, or water company threatened to [...] documented as of this encounter Care Teams Laborer Powerhouse Relationship Specialty Start Date End Date Jay Howell MD [address] [place] [address] PCP - General 03/08/21 documented as of this encounter
--- OUTSIDE RECORDS SUMMARY | 2025-08-07 08:49 | XMS_ITS | Encounter Summary ---
Author Organization [employer] ([place], [place], [place], [place]) Address [address] [place] [address] Care Team Providers Care Data Processing Manager Name Role Phone Jay Howell MD Primary Care Provider [phone] Encounter Details Date Type Department Care Team (Late st Contact Info) Description 06/19/2020 Transcribed Document [facility] Family Medicine [address] [place] [address] ProviderJessie MD [address] [place] [address] Social History Tobacco Use Types Packs/Day Years [...] provider. This is important. Medicines ??? Take dvez-rym-idmfhjo and prescription medicines only as told by [...] 10/03/2006 Document Revised: 06/13/2019 Document Reviewed: 06/13/2019 [employer] Patient Education ? 2020 [employer]. documented in this encounter Plan of Treatment Not on file documented as of this encounter Visit Diagnoses Not on filedocumented in this encounter Care Teams Data Processing Manager Relationship Specialty Start Date End Date Jay Howell MD [address] [place] [phone] PCP - General Emergency Medicine 11/12/23 documented as of this encounter
--- OUTSIDE RECORDS SUMMARY | 2025-08-07 08:49 | XMS_ITS | Encounter Summary ---
Author Organization [employer] ([place], [place], [place], [place]) Address [address] [place] [address] Care Team Providers Care Manager Implementation Name Role Phone Jay Howell MD Primary Care Provider [phone] Encounter Details Date Type Department Care Team (Late st Contact Info) Description 03/04/2021 Transcribed Document [facility] [place] [address] [place] [address] ProviderJessie MD [address] [place] [address] Social History Tobacco Use Types Packs/Day Years [...] filedocumented in this encounter Care Teams Manager Implementation Relationship Specialty Start Date End Date Jay Howell MD [address] [place] [phone] PCP - General Emergency Medicine 11/12/23 documented as of this encounter
--- OUTSIDE RECORDS SUMMARY | 2025-08-07 08:49 | XMS_ITS | Encounter Summary ---
Author Organization [employer] ([place], [place], [place], [place]) Address [address] [place] [address] Care Team Providers Care Master Brewer Name Role Phone Jay Howell MD Primary Care Provider [phone] Encounter Details Date Type Department Care Team (Late st Contact Info) Description 02/13/2021 Transcribed Document [facility] [place] Family Medicine [facility] [place] [address] ProviderJessie MD [address] [place], [place] [address] Social History Tobacco Use Types Packs/Day Years [...] 11:50:00 (02/13/21 12:00:33) Electronically signed by Sivan [facility] Conversion Tugboat Engineer Cerner at 02/04/2023 2:14 PM CDT documented in this encounter Plan of Treatment Not on file documented as of this encounter Visit Diagnoses Not on filedocumented in this encounter Care Teams Master Brewer Relationship Specialty Start Date End Date Jay Howell MD [address] [place] [phone] PCP - General Emergency Medicine 11/12/23 documented as of this encounter
--- OUTSIDE RECORDS SUMMARY | 2025-08-07 08:49 | XMS_ITS | Encounter Summary ---
Author Organization [employer] ([place], [place], [place], [place]) Address [address] [place] [address] Care Team Providers Care Material Processor Name Role Phone Jay Howell MD Primary Care Provider [phone] Encounter Details Date Type Department Care Team (Late st Contact Info) Description 08/22/2020 Transcribed Document [facility] Family Medicine [address] [place] [address] ProviderJessie MD [address] [place] [address] Social History Tobacco Use Types Packs/Day Years Used Date Smoking Tobacco: Never Assessed Comments Unknown Sex and Gender Information Value Date Recorded Sex Assigned at Not on file Legal Sex Female 7:30 PM CDT Gender Identity Not on file Sexual Orientation Not on file documented as of this encounter Miscellaneous Notes * Cerner Conversion Note - Historical ProviderMD - 08/22/2020 8:49 PM COMMUNICATIONS COORDINATOR [place] Suicide Severity Rating Scale (C-SSRS) Entered On: 08/22/2020 23:10 EST Performed On: 08/22/2020 23:10 EST by Noy Miguel Paramedic [place] Suicide Severity Rating Scale (C-SSRS) CSSRS Past Month Wish to be : No CSSRS Past Month Suicidal Thoughts : No CSSRS Lifetime Suicide Behavior : No Suicide Severity Rating Score : 0 Suicide Severity Rating : No Additional Care Required at this time Thoughts of Harming/Killing Others : No Noy Miguel Paramedic - 08/22/2020 23:10 EST Electronically signed by Sivan, [facility] Conversion Dental Laboratory Technician Apprentice Cerner at 02/04/2023 2:06 PM CDT documented in this encounter Plan of Treatment Not on file documented as of this encounter Visit Diagnoses Not on filedocumented in this encounter Care Teams Material Processor Relationship Specialty Start Date End Date Jay Howell MD [address] [place] [phone] PCP - General Emergency Medicine 11/12/23 documented as of this encounter
--- OUTSIDE RECORDS SUMMARY | 2025-08-07 08:49 | XMS_ITS | Encounter Summary ---
Author Organization [employer] ([place], [place], [place], [place]) Address [address] [place] [address] Care Team Providers Care Rn Enterostomal Name Role Phone Jay Howell MD Primary Care Provider [phone] Encounter Details Date Type Department Care Team (Late st Contact Info) Description 03/03/2021 Transcribed Document [facility] [address] [place] [address] ProviderJessie MD [address] [place], [place] [address] Social History Tobacco Use Types Packs/Day Years [...] : Low risk (0) [place] Interventions : [place] precautions for safety used Marek San[place] Rn - 03/03/2021 16:24 EDT Electronically signed by Sivan [facility] Conversion Marble And Granite Polisher Cerner at 02/04/2023 2:12 PM CDT documented in this encounter Plan of Treatment Not on file documented as of this encounter Visit Diagnoses Not on filedocumented in this encounter Care Teams Rn Enterostomal Relationship Specialty Start Date End Date Jay Howell MD [address] [place] [phone] PCP - General Emergency Medicine 11/12/23 documented as of this encounter
--- OUTSIDE RECORDS SUMMARY | 2025-08-07 08:49 | XMS_ITS | Encounter Summary ---
Author Organization [employer] ([place], [place], [place], [place]) Address [address] [place] [address] Care Team Providers Care Solar Energy Technician Name Role Phone Jay Howell MD Primary Care Provider [phone] Encounter Details Date Type Department Care Team (Late st Contact Info) Description 03/03/2021 Transcribed Document [facility] Family Medicine [facility] [place] [address] ProviderJessie MD [address] [place], [place] [address] Social History Tobacco Use Types Packs/Day Years [...] - Non - Urgent Tracking Group : [facility] ED Viri Gonsales RN - 03/03/2021 [...] 16:07:23 EDT) Problems(Active) Apnea, sleep (SNOMED CT :191003110 ) Name of Problem: Apnea, sleep ; Recorder: JUAN LUIS GIL RN; Confirmation: Confirmed ; Classification: Medical ; Code: [id number] ; Contributor System: PowerChart ; Last Updated: 11/12/2014 10:12 EST ; Life Cycle Date: 11/12/2014 ; Life Cycle Status: Active ; Vocabulary: SNOMED CT Arthritis (SNOMED CT :6691573 ) Name of Problem: Arthritis ; Recorder: KENYON CHAMBERS RN; Confirmation: Confirmed ; Classification: Medical ; Code: 9292001 ; Contributor System: PowerChart ; Last Updated: 04/10/2016 8:04 EDT ; Life Cycle Date: 08/13/2013 ; Life Cycle Status: Active ; Vocabulary: SNOMED CT Atrial fibrillation with RVR (SNOMED CT :6797681155 ) Name of Problem: Atrial fibrillation with RVR ; Recorder: SANG RICO APRN; Confirmation: Confirmed ; Classification: Medical ; Code: 7996572246 ; Contributor System: PowerChart ; Last Updated: 04/10/2016 8:05 EDT ; Life Cycle Date: 04/10/2016 ; Life Cycle Status: Active ; Responsible Provider: SANG RICO APRN; Vocabulary: SNOMED CT Blood clot (SNOMED CT :721382163 ) Name of Problem: Blood clot ; Recorder: KENYON CHAMBERS RN; Confirmation: Confirmed ; Classification: Patient Stated ; Code: 494503709 ; Contributor System: PowerChart ; Last Updated: [...] Vocabulary: Patient Care Chest pain (SNOMED CT :02182629 ) Name of Problem: Chest pain ; Recorder: SANG RICO APRN; Confirmation: Complaint of ; Classification: Medical ; Code: 18467609 ; Contributor System: PowerChart ; Last Updated: 04/10/2016 8:05 EDT ; Life Cycle Status: Active ; Responsible Provider: SANG RICO APRN; Vocabulary: SNOMED CT Chronic anticoagulation (SNOMED CT :138708603 ) Name of Problem: Chronic anticoagulation ; Recorder: SANG RICO APRN; Confirmation: Confirmed ; Classification: Medical ; Code: 230864083 ; Contributor System: PowerChart ; Last Updated: 04/10/2016 8:05 EDT ; Life Cycle Date: 04/10/2016 ; Life Cycle Status: Active ; Responsible Provider: SANG RICO APRN; Vocabulary: SNOMED CT Clotting disorder (SNOMED CT :275600978 ) Name of Problem: Clotting disorder ; Recorder: KENYON CHAMBERS RN; Confirmation: Confirmed ; Classification: Patient Stated ; Code: 193721446 ; Contributor System: PowerChart ; Last Updated: 03/28/2014 19:29 EDT ; Life Cycle Date: 08/13/2013 ; Life Cycle Status: Active ; Vocabulary: SNOMED CT COPD (SNOMED CT :83618462 ) Name of Problem: COPD ; Recorder: KENYON CHAMBERS RN; Confirmation: Confirmed ; Classification: Medical ; Code: 17306584 ; Contributor System: PowerChart ; Last Updated: 04/10/2016 8:03 EDT ; Life Cycle Date: 08/13/2013 ; Life Cycle Status: Active ; Vocabulary: SNOMED CT Coronary artery disease (SNOMED CT :5861820349 ) Name of Problem: Coronary artery disease ; Recorder: KENYON CHAMBERS RN; Confirmation: Confirmed ; Classification: Medical ; Code: 9348802279 ; Contributor System: PowerChart ; Last Updated: 04/10/2016 8:03 EDT ; Life Cycle Date: 08/13/2013 ; Life Cycle Status: Active ; Vocabulary: SNOMED CT Diabetes mellitus (SNOMED CT :520695150 ) Name of Problem: Diabetes mellitus ; Recorder: KENYON CHAMBERS RN; Confirmation: Confirmed ; Classification: Medical ; Code: 515725944 ; Contributor System: PowerChart ; Last Updated: 04/10/2016 8:04 EDT ; Life Cycle Date: 08/13/2013 ; Life Cycle Status: Active ; Vocabulary: SNOMED CT Emphysema (SNOMED CT :435765728 ) Name of Problem: Emphysema ; Recorder: JUAN LUIS GIL RN; Confirmation: Confirmed ; Classification: Medical ; Code: 297749367 ; Contributor System: PowerChart ; Last Updated: 11/12/2014 10:11 EST ; Life Cycle Date: 11/12/2014 ; Life Cycle Status: Active ; Vocabulary: SNOMED CT GERD - Gastro-esophageal reflux disease (SNOMED CT :0625412085 ) Name of Problem: GERD - Gastro-esophageal reflux disease ; Recorder: KENYON CHAMBERS RN; Confirmation: Confirmed ; Classification: Medical ; Code: 6936635387 ; Contributor System: PowerChart ; Last Updated: [...] Patient Care High blood pressure (SNOMED CT :07623522 ) Name of Problem: High blood pressure ; Recorder: KENYON CHAMBERS RN; Confirmation: Confirmed ; Classification: Medical ; Code: 37957140 ; Contributor System: PowerChart ; Last Updated: 04/10/2016 8:03 EDT ; Life Cycle Date: 08/13/2013 ; Life Cycle Status: Active ; Vocabulary: SNOMED CT History of obstructive sleep apnea (IMO :71649476 ) Name of Problem: History of obstructive sleep apnea ; Recorder: SYSTEM, SYSTEM; Confirmation: Confirmed ; Classification: Medical ; Code: 92248712 ; Last Updated: 08/25/2020 18:21 EST ; Life Cycle Date: 08/25/2020 ; Life Cycle Status: Active ; Vocabulary: IMO Hx of pulmonary embolus (SNOMED CT :104005049 ) Name of Problem: Hx of pulmonary embolus ; Recorder: SANG RICO APRN; Confirmation: Confirmed ; Classification: Medical ; Code: 914236546 ; Contributor System: PowerChart ; Last Updated: 04/10/2016 8:05 EDT ; Life Cycle Date: 04/10/2016 ; Life Cycle Status: Active ; Responsible Provider: SANG RICO APRN; Vocabulary: SNOMED CT Hyperlipidemia (SNOMED CT :83745406 ) Name of Problem: Hyperlipidemia ; Recorder: KENYON CHAMBERS RN; Confirmation: Confirmed ; Classification: Medical ; Code: 04579971 ; Contributor System: [employer] ; Last Updated: 04/10/2016 8:03 EDT ; Life Cycle Date: 08/13/2013 ; Life Cycle Status: Active ; Vocabulary: SNOMED CT Multiple renal cysts (SNOMED CT :022312526 ) Name of Problem: Multiple renal cysts ; Recorder: KENYON CHAMBERS RN; Confirmation: Confirmed ; Classification: Medical ; Code: 909426818 ; Contributor System: [employer] ; Last Updated: 04/10/2016 8:04 EDT ; Life Cycle Date: 08/13/2013 ; Life Cycle Status: Active ; Vocabulary: SNOMED CT Stented coronary artery (SNOMED CT :3190804981 ) Name of Problem: Stented coronary artery ; Recorder: KENYON CHAMBERS RN; Confirmation: Confirmed ; Classification: Medical ; Code: 8338632946 ; Contributor System: [employer] ; Last Updated: 04/10/2016 8:03 EDT ; Life Cycle Date: 08/13/2013 ; Life Cycle Status: Active ; Vocabulary: SNOMED CT Diagnoses(Active) Hip pain-swelling Date: 03/03/2021 ; Diagnosis Type: Reason For Visit ; Confirmation: Complaint of ; Clinical Dx: Hip pain-swelling ; Classification: Medical ; Clinical Service: Emergency medicine ; Code: PNED ; Probability: 0 ; Diagnosis Code: [id number] ED Height and Weight Height Source : Stated Height Entry Format : [place] Height, Feet : 5 ft(Converted to: 152 cm, 60 Inch) Height, Inches : 3 Inch(Converted to: 0 ft 3 Inch, 7.62 cm) Clinical Height : 160.02 cm Weight Source, ED : Critical estimated dosing weight Weight Entry Format : [place] Weight, Pounds : 154 lb Clinical Dosing Weight : 70 kg Body Surface Area (BSA) : 1.73 m2 Body Mass Index : 27.3 kg/m2 (HI) [place] Body Weight (IBW) : 52.02 kg Viri Gonsales RN - 03/03/2021 16:04 EDT documented in this encounter Plan of Treatment Not on file documented as of this encounter Visit Diagnoses Not on filedocumented in this encounter Care Teams Solar Energy Technician Relationship Specialty Start Date End Date Jay Howell MD [address] [place] [phone] PCP - General Emergency Medicine 11/12/23 documented as of this encounter
--- OUTSIDE RECORDS SUMMARY | 2025-08-07 08:49 | XMS_ITS | Encounter Summary ---
Author Organization [employer] ([place], [place], [place], [place]) Address [address] [place] [address] Care Team Providers Care Casting And Pasting Supervisor Name Role Phone Jay Howell MD Primary Care Provider [phone] Encounter Details Date Type Department Care Team (Late st Contact Info) Description 03/03/2021 Transcribed Document [facility] [place] [address] [place] [address] ProviderJessie MD [address] [place] [id number] Social History Tobacco Use Types Packs/Day Years [...] Communication Barrier : None Primary Language : Occitan Any Spiritual/Cultural Needs or Requests : No [...] - 03/03/2021 16:24 EDT Electronically signed by [facility] Conversion Research Nutritionist Cerner at 02/04/2023 2:00 PM CDT documented in this encounter Plan of Treatment Not on file documented as of this encounter Visit Diagnoses Not on filedocumented in this encounter Care Teams Casting And Pasting Supervisor Relationship Specialty Start Date End Date Jay Howell MD [address] [place] [phone] PCP - General Emergency Medicine 11/12/23 documented as of this encounter
--- OUTSIDE RECORDS SUMMARY | 2025-08-07 08:49 | XMS_ITS | Encounter Summary ---
Author Organization [employer] ([place], [place], [place], [place]) Address [address] [place] [address] Care Team Providers Care Film Booker Name Role Phone Jya Howell MD Primary Care Provider [phone] Encounter Details Date Type Department Care Team (Late st Contact Info) Description 02/13/2021 Transcribed Document [facility] [place] [address] [place] [address] ProviderJessie MD [address] [place], [place] [address] Social History Tobacco Use Types Packs/Day Years Used Date Smoking Tobacco: Never Assessed Comments Unknown Sex and Gender Information Value Date Recorded Sex Assigned at Not on file Legal Sex Female 7:30 PM CDT Gender Identity Not on file Sexual Orientation Not on file documented as of this encounter Miscellaneous Notes * Cerner Conversion Note - Jessie ProviderMD - 02/13/2021 11:43 AM CDT [facility] Endo PACU Summary Primary Physician: FABY GRIMM MD Finalized Date/Time: 02/13/21 12:32:03 Pt. Name: SKYLER MONTOYAO.B./Sex: 1940 Female Med Rec #: [id number] Physician: FABY GRIMM MD Financial #: [id number] Pt. Type: O Room/Bed: END/ Admit/Disch: 02/13/21 09:44:00 - Institution: [facility] Endo PACU Case Times Entry 1 In PACU I 02/13/21 12:07:00 Ready for PACU 02/13/21 12:31:00 Discharge Discharge from PACU 02/13/21 12:31:00 I Last Modified By: Roselia Urbano, Rn 02/13/21 12:32:01 Finalized By: Roselia Urbano, Rn Document Signatures Signed By: Roselia Urbano Rn 02/13/21 12:32 Electronically signed by Sivan [facility] Conversion Circulation Representative Cerner at 02/04/2023 2:17 PM CDT documented in this encounter Plan of Treatment Not on file documented as of this encounter Visit Diagnoses Not on filedocumented in this encounter Care Teams Film Booker Relationship Specialty Start Date End Date Jay Howell MD [address] [place] [phone] PCP - General Emergency Medicine 11/12/23 documented as of this encounter
--- OUTSIDE RECORDS SUMMARY | 2025-08-07 08:49 | XMS_ITS | Encounter Summary ---
Author Organization [email or web address] ([place], [place], [place], [place]) Address [address] [place] [address] Care Team Providers Care Director Biologics Name Role Phone Jay Howell MD Primary Care Provider [phone] Encounter Details Date Type Department Care Team (Late st Contact Info) Description 02/13/2021 Transcribed Document [facility] Family Medicine [address] [place] [address] ProviderJessie MD [address] [place], [place] [id number] Social History Tobacco Use Types Packs/Day Years [...] Yuen MD - 02/13/2021 12:19 PM CDT [facility] [place] [address] SKYLER MONTOYA :1940 Visit Time:02/13/2021 What to do next Your Diagnosis Personal history of colonic polyps Unspecified abdominal pain Follow-Up Appointments Follow Up with FABY GRIMM MD When Only if needed Where: [address] [facility] [address] [place] [address]- Medications What How Much When Instructions Next [...] ??? Working with a diet and nutrition therapist (dietitian) to help create a food plan [...] for some people. General instructions ??? Take yhxz-iyw-ohnkraz and prescription medicines and supplements only as [...] provider. Document Revised: 09/26/2018 Document Reviewed: 09/26/2018 [employer] Patient Education ?? 2020 [employer] Segura's Esophagus Segura's esophagus occurs when [...] Tomatoes and foods made with tomatoes. ? [place] or spicy foods. ? Chocolate and peppermint. ??? Do not drink alcohol. General instructions ??? Take tdce-gxf-gfaewei and prescription medicines only as told by [...] provider. Document Revised: 01/29/2019 Document Reviewed: 01/29/2019 [employer] Patient Education ?? 2020 [employer] ESOPHAGOGASTRODUODENOSCOPY Care After Read the instructions [...] eating solid foods. General instructions ??? Take cvae-aof-zpetuea and prescription medicines only as told by [...] provider. Document Revised: 01/01/2019 Document Reviewed: 01/23/2017 [employer] Patient Education ?? 2020 [employer]. Gastritis, Adult Gastritis is inflammation of the [...] medicines. These include steroids, antibiotics, and some gxuh-tmc-yosdumy medicines, such as aspirin or ibuprofen. ??? [...] these instructions at home: Medicines ??? Take mxfn-eat-cadljfe and prescription medicines only as told by [...] Reviewed: 02/20/2019 Else[employer] Patient Education ?? 2020 [employer] Colonoscopy, Adult A colonoscopy is a [...] including vitamins, herbs, eye drops, creams, and ozmw-jfs-nnhruci medicines. ??? Any problems you or family [...] tells you to take them. ??? Taking vjto-cax-falsaxb medicines, vitamins, herbs, and supplements. General instructions [...] provider. Document Revised: 04/25/2020 Document Reviewed: 04/25/2020 [employer] Patient Education ?? 2020 [employer] Colon Polyps Polyps are tissue growths [...] provider. Document Revised: 01/18/2019 Document Reviewed: 01/18/2019 [employer] Patient Education ?? 2020 [employer]. Emergency Awareness and Preventative Care STROKE is [...] Assistance with quitting is available by contacting 1-381-TCFO-NOW. This is a free resource providing counseling, [...] was given the opportunity to ask questions. Patient/Certified Master Locksmith Name: Patient/Certified Master Locksmith Signature: Relationship to Patient: Clinician/Hospital Certified Master Locksmith Signature: Date: documented in this encounter Plan of Treatment Not on file documented as of this encounter Visit Diagnoses Not on filedocumented in this encounter Care Teams Director Biologics Relationship Specialty Start Date End Date Jay Howell MD [address] [place] [phone] PCP - General Emergency Medicine 11/12/23 documented as of this encounter
--- OUTSIDE RECORDS SUMMARY | 2025-08-07 08:49 | XMS_ITS | Encounter Summary ---
Author Organization [employer] ([place], [place], [place], [place]) Address [address] [place] [address] Care Team Providers Care Staffing Executive Name Role Phone Jay Howell MD Primary Care Provider [phone] Encounter Details Date Type Department Care Team (Late st Contact Info) Description 08/22/2020 Transcribed Document [facility] [place] [address] [place] [address] ProviderJessie MD [address] [place] [address] Social History Tobacco Use Types Packs/Day Years Used Date Smoking Tobacco: Never Assessed Comments Unknown Sex and Gender Information Value Date Recorded Sex Assigned at Not on file Legal Sex Female 7:30 PM CDT Gender Identity Not on file Sexual Orientation Not on file documented as of this encounter Miscellaneous Notes * Cerner Conversion Note - Jessie ProviderMD - 08/22/2020 8:49 PM LAND SURVEYING SURVEY WORKER ED Assessment Entered On: 08/23/2020 1:11 EST Performed On: 08/22/2020 21:11 EST by Oumou Augustine RN ED Quick Look Assessment Level of Consciousness : Alert Orientation : Oriented x 4 Oumou Augustine RN - 08/23/2020 1:08 EST ED General-Functional Assess Preferred Communication Mode : Verbal Communication Barrier : None Primary Language : Serbian Any Spiritual/Cultural Needs or Requests : No [...] 08/23/2020 1:08 EST Electronically signed by Sivan [facility] Conversion Rotary Helper Cerner at 02/04/2023 1:58 PM CDT documented in this encounter Plan of Treatment Not on file documented as of this encounter Visit Diagnoses Not on filedocumented in this encounter Care Teams Staffing Executive Relationship Specialty Start Date End Date Jay Howell MD [address] [place] [phone] PCP - General Emergency Medicine 11/12/23 documented as of this encounter
--- OUTSIDE RECORDS SUMMARY | 2025-08-07 08:49 | XMS_ITS | Encounter Summary ---
Author Organization [employer] ([place], [place], [place], [place]) Address [address] [place] [address] Care Team Providers Care Blanket Maker Name Role Phone Jay Howell MD Primary Care Provider [phone] Encounter Details Date Type Department Care Team (Late st Contact Info) Description 08/22/2020 Transcribed Document [facility] [place] [address] [place] [address] ProviderJessie MD [address] [place] [address] Social History Tobacco Use Types Packs/Day Years Used Date Smoking Tobacco: Never Assessed Comments Unknown Sex and Gender Information Value Date Recorded Sex Assigned at Not on file Legal Sex Female 7:30 PM CDT Gender Identity Not on file Sexual Orientation Not on file documented as of this encounter Miscellaneous Notes * Cerner Conversion Note - Historical ProviderMD - 08/22/2020 8:49 PM PRESSURISED CONTAINER FILLER Broset Violence Assessment Entered On: 08/22/2020 23:10 EST Performed On: 08/22/2020 23:10 EST by Noy Miguel Clinical Unit Educator Broset Violence Assessment Broset Violence Checklist of Symptoms : None Broset Violence Symptoms Subtotal : 0 Broset Violence Symptoms Indicator : Low risk (0) Noy Miguel Paramedic - 08/22/2020 23:10 EST Electronically signed by Sivan [facility] Conversion [employer] Dean Cerner at 02/04/2023 1:55 PM CDT documented in this encounter Plan of Treatment Not on file documented as of this encounter Visit Diagnoses Not on filedocumented in this encounter Care Teams Blanket Maker Relationship Specialty Start Date End Date Jay Howell MD [address] [place] [phone] PCP - General Emergency Medicine 11/12/23 documented as of this encounter
--- OUTSIDE RECORDS SUMMARY | 2025-08-07 08:49 | XMS_ITS | Clinical Summary ---
Author Organization [employer] [facility] Address [address] [place] [address] Care Team Providers Care Collection Supervisor Name Role Phone Jay Howell MD Primary Care Provider [phone] Allergies Active Allergy Reactions Criticality Noted Date Comments Morphine And Codeine Other (See Comments),Unknown - Low Severity,Unknown (See Comments) Low 2014 Listed per [facility] MAR. Nitrofurantoin Unknown - Low Severity [...] 03/23/2024 History of pulmonary embolus (PE) 03/14/2024 residential current use of anticoagulant Fatigue 03/14/2024 Atopic [...] of chest/PE protocol. Patient was sent to [facility] radiology department for CT scan today. [...] new referral to a cardiovascular surgeon at [facility]. She reports she has seen Dr. Mickey Alcantara in the past. Coronary artery disease invo lving coronary bypass graft of [place] heart without angina pectoris 04/28/2023 Assessment & Plan (09/30/2023 4:12 PM EST): She is on Statin, BB,CCB, ARB, ASA, Ranexa, and Warfarin. Continue current medication. Assessment & Plan (05/02/2023 5:03 PM EDT): She has a known history of coronary artery disease. She has denied any chest pain. Her last heart catheterization was November 25, 2022 at [facility] in [place] showing: -last [facility] 11/25/2022- A. CAD s/p CABG 2 [...] Type Department Care Team Description 07/02/2025 Telephone [facility] CARD[facility] [address] [place] [phone] Brenda Guerrier APRN JULIAN - MEDICAL RECORDS REQUEST 07/02/2025 Telephone [facility] [address] [place], [place] [phone] DR[address] 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
--- OUTSIDE RECORDS SUMMARY | 2025-08-07 08:49 | XMS_ITS | Encounter Summary ---
Author Organization [employer] ([place], [place], [place], [place]) Address [address] [place] [address] Care Team Providers Care Water Quality Assistant Name Role Phone Jay Howell MD Primary Care Provider [phone] Encounter Details Date Type Department Care Team (Late st Contact Info) Description 03/03/2021 Transcribed Document [facility] [place] [address] [place] [address] ProviderJessie MD [address] [place] [phone] Social History Tobacco Use Types Packs/Day Years [...] 03/03/2021 5:06 PM CDT Electronically signed by [facility] Conversion Hand Wrapper Operator Cerner at 02/04/2023 2:08 PM CDT documented in this encounter Plan of Treatment Not on file documented as of this encounter Visit Diagnoses Not on filedocumented in this encounter Care Teams Water Quality Assistant Relationship Specialty Start Date End Date Jay Howell MD [address] [place] [phone] PCP - General Emergency Medicine 11/12/23 documented as of this encounter
--- OUTSIDE RECORDS SUMMARY | 2025-08-07 08:49 | XMS_ITS | Encounter Summary ---
Author Organization [employer] ([place], [place], [place], [place]) Address [address] [place] [address] Care Team Providers Care Levelman Name Role Phone Jay Howell MD Primary Care Provider [phone] Encounter Details Date Type Department Care Team (Late st Contact Info) Description 03/03/2021 Transcribed Document [facility] Family Medicine [address] [place] [address] ProviderJessie MD [address] [place] [address] Social History Tobacco Use Types Packs/Day Years Used Date Smoking Tobacco: Never Assessed Comments Unknown Sex and Gender Information Value Date Recorded Sex Assigned at Not on file Legal Sex Female 7:30 PM CDT Gender Identity Not on file Sexual Orientation Not on file documented as of this encounter Miscellaneous Notes * Cerner Conversion Note - Historical ProviderMD - 03/03/2021 3:59 PM CDT [place] Suicide Severity Rating Scale (C-SSRS) Entered On: 03/03/2021 16:25 EDT Performed On: 03/03/2021 16:24 EDT by Marek Sanford Rn [place] Suicide Severity Rating Scale (C-SSRS) CSSRS Past [...] on filedocumented in this encounter Care Teams Levelman Relationship Specialty Start Date End Date Jay Howell MD [address] [place] [phone] PCP - General Emergency Medicine 11/12/23 documented as of this encounter
--- OUTSIDE RECORDS SUMMARY | 2025-08-07 08:50 | XMS_ITS | Encounter Summary ---
Author Organization [employer] ([place], [place], [place], [place]) Address [address] [place] [address] Care Team Providers Care Political Research Scientist Name Role Phone Jay Howell MD Primary Care Provider [phone] Encounter Details Date Type Department Care Team (Late st Contact Info) Description 12/20/2018 Transcribed Document [facility] [place] Medicine [address] [place] [address] ProviderJessie MD [address] [place] [address] Social History Tobacco Use Types Packs/Day Years Used Date Smoking Tobacco: Never Assessed Comments Unknown Sex and Gender Information Value Date Recorded Sex Assigned at Not on file Legal Sex Female 7:30 PM CDT Gender Identity Not on file Sexual Orientation Not on file documented as of this encounter Miscellaneous Notes * Cerner Conversion Note - Historical ProviderMD - 12/20/2018 7:39 PM WOOD ROOM HAND Admission History, Adult Entered On: 12/20/2018 19:41 [...] Info Preferred Name : ilsa Support Person/Patient Lath Tier : Deanna Support Person/Pt Rep Name : Willard Contact Password : Marvin Support Person/Pt Rep Contact Information : [phone] Want Family/Rep/Phys Notified of Admit : No Emergency Contact #1 : na Emergency Contact #1 Phone Number : na Emergency Contact #1 Relationship : na Emergency Contact #2 : na Emergency Contact #2 Phone Number : na Emergency Contact #2 Relationship : na Primary Language : Polish Preferred Communication Mode : Verbal Communication Barrier [...] Scale Risk Level : 25-45 Medium Risk Campbell Fall Interventions : Adequate lighting, Assistive devices [...] Source : Stated Height Entry Format : [place] Height, Feet : 5 ft(Converted to: 152 cm, 60 Inch) Height, Inches : 3 Inch(Converted to: 0 ft 3 Inch, 7.62 cm) Clinical Height : 160.02 cm Weight Source : Standing scale Weight Entry Format : [place] Clinical Dosing Weight : 71.82 kg Weight, Pounds : 158 lb Body Surface Area (BSA) : 1.75 m2 Body Mass Index : 28 kg/m2 (HI) [place] Body Weight : 52 kg An Ocampo [...] RN - 12/20/2018 19:39 EST Spiritual/Cultural Needs Hindu Preference : Holiness Spiritual/Cultural Needs Comment : joseph after surgery or major surgery An Ocampo RN - 12/20/2018 19:39 EST Valuables and Belongings Valuables and Belongings : Clothing, Personal devices Clothing : Common streetwear Clothing Disposition : Bedside Personal Device Disposition : Bedside Personal Devices : Dentures, partial plate An Ocampo RN - 12/20/2018 19:39 EST Electronically signed by [facility] Conversion Brake Operator Cerner at 02/04/2023 2:16 PM CDT documented in this encounter Plan of Treatment Not on file documented as of this encounter Visit Diagnoses Not on filedocumented in this encounter Care Teams Political Research Scientist Relationship Specialty Start Date End Date Jay Howell MD [address] [place] [phone] PCP - General Emergency Medicine 11/12/23 documented as of this encounter
--- OUTSIDE RECORDS SUMMARY | 2025-08-07 08:50 | XMS_ITS | Encounter Summary ---
Author Organization [employer] ([place], [place], [place], [place]) Address [address] [place] [address] Care Team Providers Care Charge Authorizer Name Role Phone Jay Howell MD Primary Care Provider [phone] Encounter Details Date Type Department Care Team (Late st Contact Info) Description 12/21/2018 Transcribed Document [facility] [place] Family [place] [facility] [address] ProviderJessie MD [address] [place] [address] Social History Tobacco Use Types Packs/Day Years Used Date Smoking Tobacco: Never Assessed Comments Unknown Sex and Gender Information Value Date Recorded Sex Assigned at Not on file Legal Sex Female 7:30 PM CDT Gender Identity Not on file Sexual Orientation Not on file documented as of this encounter Miscellaneous Notes * Cerner Conversion Note - Historical MD Alpa - 12/21/2018 7:18 AM DANCE CHOREOGRAPHER Patient: SKYLER MONTOYA Age: 77 years Sex: [...] of motion, Normal strength. Integumentary: Warm, Dry, [place]. Neurologic: Alert, Oriented. Psychiatric: Cooperative, Appropriate mood & affect. Results Review Telemetry DEC 21 04:17 140 110 10 / H 153 3.8 22 0.70 \ DEC 21 04:17 \ 11.5 / 7.2 L 150 / 35.7 \ [facility] 12/20/18; Dr. Fredy Pacheco TECHNIQUE: A 5/6-Korean sheath placed in the right femoral artery. Right iliac artery angiography was performed using a JR4 diagnostic catheter due to difficulty in advancing safety J-wire across the proximal right common iliac artery. Angiography revealed patent iliac artery with a kink proximally. There is no pressure gradient across the kink. The short 6-Korean sheath was switched out for a 25 cm 6-Korean Arrow sheath with the sheath tip into the abdominal aorta for angiography and percutaneous intervention. JL4, JR4 diagnostic catheters were used for selective angiography of the asa'carsarmiut vessels. JR4 diagnostic catheter was used for selective angiography of the bypass grafts. A 6-Korean pigtail catheter was advanced in the left [...] additional 162 mg of aspirin in the labor relations or personnel negotiator. She was given Aggrastat bolus. Patient received [...] on filedocumented in this encounter Care Teams Charge Authorizer Relationship Specialty Start Date End Date Jay Howell MD [address] [place] [phone] PCP - General Emergency Medicine 11/12/23 documented as of this encounter
--- OUTSIDE RECORDS SUMMARY | 2025-08-07 08:50 | XMS_ITS | Clinical Summary ---
Author Organization [facility] Address [address] [place] [address] Care Team Providers Care Bakery Worker Name Role Phone Unavailable Primary Care Provider [...] Visit Topic 12/23/1941 Pneumococcal Vaccine: 65+ Years (2 of 3 - PCV20 or PCV21) 07/26/2014 07/26/2013 DTaP/Tdap/Td Vaccines (2 - T d or [...]
--- OUTSIDE RECORDS SUMMARY | 2025-08-07 08:50 | XMS_ITS | Encounter Summary ---
Author Organization [employer] ([place], [place], [place], [place]) Address [address] [place] [address] Care Team Providers Care Mass Communications Instructor Name Role Phone Jay Howell MD Primary Care Provider [phone] Encounter Details Date Type Department Care Team (Late st Contact Info) Description 12/21/[address] [facility] [place] Family Medicine [address] [place] [address] ProviderJessie MD [address] [place] [address] Social History Tobacco Use Types Packs/Day Years Used Date Smoking Tobacco: Never Assessed Comments Unknown Sex and Gender Information Value Date Recorded Sex Assigned at Not on file Legal Sex Female 7:30 PM CDT Gender Identity Not on file Sexual Orientation Not on file documented as of this encounter Miscellaneous Notes * Cerner Conversion Note - Historical ProviderMD - 12/21/2018 9:20 AM PATIENT REPRESENTATIVE Spiritual Care Short Form Entered On: 12/21/2018 22:31 EST Performed On: 12/21/2018 9:20 EST by JAZZ PINA Chaplain-Non Cert General Information, Spiritual Care Spiritual Care Referred by : Gear Hobber initiated Reason for Visit : Initial Ministry Provided to : Patient Intervention/Comment/Summary Points : Visited conducted by Spiritual Surveyor Chain Helper shilo Velasquez Yarsani Preference : Holiness JAZZ PINA Chaplain-Magalis Del Castillo - 12/21/2018 22:31 EST documented in this encounter Plan of Treatment Not on file documented as of this encounter Visit Diagnoses Not on filedocumented in this encounter Care Teams Mass Communications Instructor Relationship Specialty Start Date End Date Jay Howell MD [address] [place] [phone] PCP - General Emergency Medicine 11/12/23 documented as of this encounter
--- OUTSIDE RECORDS SUMMARY | 2025-08-07 08:50 | XMS_ITS | Encounter Summary ---
Author Organization [employer] ([place], [place], [place], [place]) Address [address] [place] [address] Care Team Providers Care Demo Specialist Name Role Phone Jay Howell MD Primary Care Provider [phone] Encounter Details Date Type Department Care Team (Late st Contact Info) Description 12/21/2018 Transcribed Document [facility] [place] [facility] [place] [address] ProviderJessie MD [address] [place] [phone] Social History Tobacco Use Types Packs/Day Years Used Date Smoking Tobacco: Never Assessed Comments Unknown Sex and Gender Information Value Date Recorded Sex Assigned at Not on file Legal Sex Female 7:30 PM CDT Gender Identity Not on file Sexual Orientation Not on file documented as of this encounter Miscellaneous Notes * Cerner Conversion Note - Jessie ProviderMD - 12/21/2018 12:17 PM RESIDENT HALL DIRECTOR [address] , [place], [place] [id number] Patient Copy Patient Information: Name: SKYLER MONTOYA Current Date: 12/21/2018 12:17:17 : 1940 Patient Address: [address] [place] [id number] Patient Attending Physician: FREDY YAÑEZ MD-CAR Primary Care Provider: TARA CHEN (REF), -MED Primary Care Provider Discharge Diagnosis: CAD (coronary artery disease); DM (diabetes mellitus); Exertional angina; HLD (hyperlipidemia); HTN (hypertension); Hx of CABG; DANTE (obstructive sleep apnea); Paroxysmal A-fib Weight on Admission: 158 lb, 0 oz Comment: Follow-up Instructions: With: Address: When: [facility] [address], [place] [address] Business (1) In 1 month 01/21/2019 With: Address: When: [facility] [address], [address] [place], [place] [id number] Business (1) Within 2 to 5 weeks [...] What foods can I eat? GrainsBreads, including Bolivian, white, jie, wheat, raisin, rye, oatmeal, and Kinyarwanda. Tortillas that are neither fried nor made with lard or trans fat. Low-fat rolls, including hotdog and hamburger buns and Nigerien muffins. Biscuits. Muffins. Waffles. Pancakes. Light popcorn. [...] cottage cheese. Whole-milk cheeses, including blue (fredo), Irwin Armand, Brie, Nate, New Zealander, Havarti, Sao Tomean, cheddar, Camembert, and Gail. Whole or 2% milk that is liquid, [...] that has suet, meat fat, or shortening. Sumner butter, hydrogenated oils, palm oil, coconut oil, [...] can cause a heart attack (myocardial infarction, IA). CAD is a leading cause of for [...] 12/25/2012 Document Revised: 03/10/2017 Document Reviewed: 02/04/2015 [employer] Interactive Patient Education ? 2017 [employer] Groin Site Care Refer to this [...] Document Reviewed: 11/05/2011 ExitCare? Patient Information ?2013 [employer]. Angiogram An angiogram, also called angiography, is [...] including vitamins, herbs, eye drops, creams, and wrqa-hes-okxqhwh medicines. ??? Any problems you or family [...] 07/13/2006 Document Revised: 03/16/2017 Document Reviewed: 03/06/2014 [employer] Interactive Patient Education ? 2017 [employer]. Medication Leaflets: valsartan (elin BAUTISTA foster) Rivka [...] valsartan; ?? if you are on a mol-dbtp-vzjy; ?? if you are dehydrated; or ?? [...] may report side effects to FDA at 1-880-KIP-2597. What other drugs will affect valsartan? Tell [...] may interact with valsartan, including prescription and lkin-cpd-kcqckzl medicines, vitamins, and herbal products. Not all [...] to ensure that the information provided by [employer]. ('[employer]') is accurate, up-to-date, and complete, but no guarantee is made to that effect. Drug information contained herein may be time sensitive. [employer] information has been compiled for use by healthcare practitioners and consumers in the [place] and therefore [employer] does not warrant that uses outside of the [place] are appropriate, unless specifically indicated otherwise. [employer] drug information does not endorse drugs, diagnose patients or recommend therapy. Smart [employer]oon drug information is an informational resource designed [...] effective or appropriate for any given patient. [employer] does not assume any responsibility for any aspect of healthcare administered with the aid of information [employer] provides. The information contained herein is not intended to cover all possible uses, directions, precautions, warnings, drug interactions, allergic reactions, or adverse effects. If you have questions about the drugs you are taking, check with your doctor, nurse or pharmacist. Copyright 1977-2510 [employer]. Version: 16.05. Revision Date: 09/08/2016. hydralazine (bob [...] may report side effects to FDA at 5-852-NZS-5775. What other drugs will affect hydralazine? Tell your doctor about all your current medicines and any you start or stop using, especially: ? diazoxide (an injectable blood pressure medication); or ?? an MAO inhibitor--isocarboxazid, linezolid, methylene blue injection, phenelzine, rasagiline, selegiline, tranylcypromine, and others. This list is not complete. Other drugs may interact with hydralazine, including prescription and zhxf-btg-okvyugc medicines, vitamins, and herbal products. Not all [...] to ensure that the information provided by [employer]. ('[employer]') is accurate, up-to-date, and complete, but no guarantee is made to that effect. Drug information contained herein may be time sensitive. [employer] information has been compiled for use by healthcare practitioners and consumers in the [place] and therefore [employer] does not warrant that uses outside of the [place] are appropriate, unless specifically indicated otherwise. [employer]'s drug information does not endorse drugs, diagnose patients or recommend therapy. [employer] drug information is an informational resource designed [...] effective or appropriate for any given patient. [employer] does not assume any responsibility for any aspect of healthcare administered with the aid of information [employer] provides. The information contained herein is not intended to cover all possible uses, directions, precautions, warnings, drug interactions, allergic reactions, or adverse effects. If you have questions about the drugs you are taking, check with your doctor, nurse or pharmacist. Copyright 7910-0411 [employer]. Version: 5.01. Revision Date: 10/26/2017. [facility]lodipine (am CAS reyes) [facility] What is the most important [...] may report side effects to FDA at 6-576-NZV-7076. What other drugs will affect amlodipine? Tell your doctor about all your current medicines and any you start or stop using, especially: ? nitroglycerin; ?? simvastatin (Zocor, Simcor, Vytorin); or ?? any other heart or blood pressure medications. This list is not complete. Other drugs may interact with amlodipine, including prescription and yrqf-jie-puqjpyr medicines, vitamins, and herbal products. Not all [...] to ensure that the information provided by [employer]. ('[employer]') is accurate, up-to-date, and complete, but no guarantee is made to that effect. Drug information contained herein may be time sensitive. [employer] information has been compiled for use by healthcare practitioners and consumers in the [place] and therefore [employer] does not warrant that uses outside of the [place] are appropriate, unless specifically indicated otherwise. [employer] drug information does not endorse drugs, diagnose patients or recommend therapy. [employer] drug information is an informational resource designed [...] effective or appropriate for any given patient. [employer] does not assume any responsibility for any aspect of healthcare administered with the aid of information [employer] provides. The information contained herein is not intended to cover all possible uses, directions, precautions, warnings, drug interactions, allergic reactions, or adverse effects. If you have questions about the drugs you are taking, check with your doctor, nurse or pharmacist. Copyright 4581-2709 [employer]. Version: 14.01. Revision Date: 01/24/2017. clopidogrel (kloe [...] may report side effects to FDA at 7-567-MNB-4705. What other drugs will affect clopidogrel? Certain other medicines may increase your risk of bleeding, including aspirin. Avoid taking aspirin unless your doctor tells you to. Tell your doctor about all your other medicines, especially: ? any other medicines to treat or prevent blood clots; ?? a stomach acid bulldozer operator such as omeprazole, Nexium, or Prilosec; ?? an antidepressant; ?? an opioid medication; ?? a blood thinner--warfarin, Coumadin, Jantoven; or ?? NSAIDs (nonsteroidal anti-inflammatory drugs)--ibuprofen (Advil, Motrin), naproxen (Aleve), celecoxib, diclofenac, indomethacin, meloxicam, and others. This list is not complete. Other drugs may affect clopidogrel, including prescription and wyja-bxb-iwjxctc medicines, vitamins, and herbal products. Not all [...] to ensure that the information provided by [employer]. ('[employer]') is accurate, up-to-date, and complete, but no guarantee is made to that effect. Drug information contained herein may be time sensitive. [employer] information has been compiled for use by healthcare practitioners and consumers in the [place] and therefore [employer] does not warrant that uses outside of the [place] are appropriate, unless specifically indicated otherwise. [employer] drug information does not endorse drugs, diagnose patients or recommend therapy. [employer] drug information is an informational resource designed [...] effective or appropriate for any given patient. [employer] does not assume any responsibility for any aspect of healthcare administered with the aid of information [employer] provides. The information contained herein is not intended to cover all possible uses, directions, precautions, warnings, drug interactions, allergic reactions, or adverse effects. If you have questions about the drugs you are taking, check with your doctor, nurse or pharmacist. Copyright 9260-4761 [employer]. Version: 15.01. Revision Date: 08/07/2018. ranolazine (ra [...] may report side effects to FDA at 5-701-XSK-1714. What other drugs will affect ranolazine? Many [...] interact with ranolazine. This includes prescription and ufyu-xyo-tqgusbu medicines, vitamins, and herbal products. Give a [...] to ensure that the information provided by [employer]. ('[employer]') is accurate, up-to-date, and complete, but no guarantee is made to that effect. Drug information contained herein may be time sensitive. [employer] information has been compiled for use by healthcare practitioners and consumers in the [place] and therefore [employer] does not warrant that uses outside of the [place] are appropriate, unless specifically indicated otherwise. [employer]'s drug information does not endorse drugs, diagnose patients or recommend therapy. [employer] drug information is an informational resource designed [...] effective or appropriate for any given patient. [employer] does not assume any responsibility for any aspect of healthcare administered with the aid of information [employer] provides. The information contained herein is not intended to cover all possible uses, directions, precautions, warnings, drug interactions, allergic reactions, or adverse effects. If you have questions about the drugs you are taking, check with your doctor, nurse or pharmacist. Copyright 5535-4814 [employer]. Version: 11.. Revision Date: 12/04/2015. CIGARETTE SMOKING: The facts are clear, cigarette smoking will shorten your life. Smoking can cause many illnesses along the way. As a healthcare provider, we recommend that you stop smoking. Assistance with quitting is available by contacting 8-425-KHXH-NOW. This is a free resource providing counseling, [...] Be sure to sign up for the [employer] patient portal, which gives you 09/05 access to your medical information ??? including these discharge instructions ??? using your computer, smartphone, or tablet. Just go to [employer] to get started. Questions? Call . [facility] would like to thank you for allowing us to assist you with your healthcare needs. MICHELE Skaggs JUDY D, (or telephone claims representative) have received the above patient education materials/instructions and have verbalized understanding: Patient Signature _ Date/Time Patient Digital Content Coordinator Signature (if needed) Date/Time Clinician/Hospital Digital Content Coordinator Signature (if needed) Date/Time Electronically signed by Sivan, [facility] Conversion Incinerator Operator Cerner at 02/04/2023 2:01 PM CDT documented in this encounter Plan of Treatment Not on file documented as of this encounter Visit Diagnoses Not on filedocumented in this encounter Care Teams Demo Specialist Relationship Specialty Start Date End Date Jay Howell MD [address] [place] [phone] PCP - General Emergency Medicine 11/12/23 documented as of this encounter
--- OUTSIDE RECORDS SUMMARY | 2025-08-07 08:50 | XMS_ITS | Encounter Summary ---
Author Organization [employer] ([place], [place], [place], [place]) Address [address] [place] [address] Care Team Providers Care Sweep Press Operator Name Role Phone Jay Howell MD Primary Care Provider [phone] Encounter Details Date Type Department Care Team (Late st Contact Info) Description 12/21/2018 Transcribed Document [facility] [place] [facility] [place] [address] ProviderJessie MD [address] [place] [phone] Social History Tobacco Use Types Packs/Day Years Used Date Smoking Tobacco: Never Assessed Comments Unknown Sex and Gender Information Value Date Recorded Sex Assigned at Not on file Legal Sex Female 7:30 PM CDT Gender Identity Not on file Sexual Orientation Not on file documented as of this encounter Miscellaneous Notes * Cerner Conversion Note - Jessie Yuen MD - 12/21/2018 11:48 AM ORAL AND MAXILLOFACIAL PATHOLOGIST [address] , [place], [place] [id number] Patient Copy Patient Information: Name: SKYLER MONTOYA Current Date: 12/21/2018 11:48:11 : 1940 Patient Address: [address] [place] [id number] Patient Attending Physician: FREDY YAÑEZ MD-CAR Primary Care Provider: TARA CHEN (REF), -MED Primary Care Provider Discharge Diagnosis: CAD (coronary artery disease); DM (diabetes mellitus); Exertional angina; HLD (hyperlipidemia); HTN (hypertension); Hx of CABG; DANTE (obstructive sleep apnea); Paroxysmal A-fib Weight on Admission: 158 lb, 0 oz Comment: Follow-up Instructions: With: Address: When: [facility] [address], [place] [address] [place] [address] Business (1) In 1 month 01/21/2019 With: Address: When: [facility] [address], [address] [place], [place] [id number] Business (1) Within 2 to 5 weeks [...] What foods can I eat? GrainsBreads, including Kinyarwanda, white, jie, wheat, raisin, rye, oatmeal, and Occitan. Tortillas that are neither fried nor made with lard or trans fat. Low-fat rolls, including hotdog and hamburger buns and [place] Helen[place] muffins. Biscuits. Muffins. Waffles. Pancakes. Light popcorn. Whole-grain cereals. Flatbread. [place] toast. Pretzels. Breadsticks. Rusks. Low-fat snacks. Low-fat [...] cottage cheese. Whole-milk cheeses, including blue (fredo), Dillon Armand, Brie, Nate, Canadian, Havarti, Tongan, cheddar, Camembert, and [place]cyrus. Whole or 2% milk that is liquid, [...] that has suet, meat fat, or shortening. [place] butter, hydrogenated oils, palm oil, coconut oil, [...] can cause a heart attack (myocardial infarction, [place]). CAD is a leading cause of for [...] 12/25/2012 Document Revised: 03/10/2017 Document Reviewed: 02/04/2015 [employer] Interactive Patient Education ? 2017 [employer] Groin Site Care Refer to this [...] Document Reviewed: 11/05/2011 ExitCare? Patient Information ?2013 [employer]. Angiogram An angiogram, also called angiography, is [...] including vitamins, herbs, eye drops, creams, and huri-mjj-gypcluq medicines. ??? Any problems you or family [...] 03/06/2014 Elsevier Interactive Patient Education ? 2017 [employer] Medication Leaflets: valsartan (elin LILY foster) [...] valsartan; ?? if you are on a iso-knyn-bdbb; ?? if you are dehydrated; or ?? [...] may report side effects to FDA at 4-842-AHM-2068. What other drugs will affect valsartan? Tell [...] may interact with valsartan, including prescription and kidy-mgq-nvzxscq medicines, vitamins, and herbal products. Not all [...] to ensure that the information provided by [employer]. ('Multum') is accurate, up-to-date, and complete, but no guarantee is made to that effect. Drug information contained herein may be time sensitive. SignNowum information has been compiled for use by healthcare practitioners and consumers in the [place] and therefore [employer]Now[employer] does not warrant that uses outside of the [place] are appropriate, unless specifically indicated otherwise. HALKAR's drug information does not endorse drugs, diagnose patients or recommend therapy. HALKAR's drug information is an informational resource designed [...] effective or appropriate for any given patient. [facility] does not assume any responsibility for any aspect of healthcare administered with the aid of information [facility] provides. The information contained herein is not intended to cover all possible uses, directions, precautions, warnings, drug interactions, allergic reactions, or adverse effects. If you have questions about the drugs you are taking, check with your doctor, nurse or pharmacist. Copyright 5417-4473 [facility] [employer]. Version: 16.05. Revision Date: 09/08/2016. hydralazine (bob [...] may report side effects to FDA at 6-190-MJV-6520. What other drugs will affect hydralazine? Tell your doctor about all your current medicines and any you start or stop using, especially: ? diazoxide (an injectable blood pressure medication); or ?? an MAO inhibitor--isocarboxazid, linezolid, methylene blue injection, phenelzine, rasagiline, selegiline, tranylcypromine, and others. This list is not complete. Other drugs may interact with hydralazine, including prescription and edhd-qto-yxcfayy medicines, vitamins, and herbal products. Not all [...] to ensure that the information provided by [employer]. ('Multum') is accurate, up-to-date, and complete, but no guarantee is made to that effect. Drug information contained herein may be time sensitive. HALKAR information has been compiled for use by healthcare practitioners and consumers in the [place] and therefore [employer] does not warrant that uses outside of the [place] are appropriate, unless specifically indicated otherwise. HALK[employer]'s drug information does not endorse drugs, diagnose patients or recommend therapy. Codys drug information is an informational resource designed [...] effective or appropriate for any given patient. [employer] does not assume any responsibility for any aspect of healthcare administered with the aid of information [employer] provides. The information contained herein is not intended to cover all possible uses, directions, precautions, warnings, drug interactions, allergic reactions, or adverse effects. If you have questions about the drugs you are taking, check with your doctor, nurse or pharmacist. Copyright 7696-4401 [employer]. Version: 5.01. Revision Date: 10/26/2017. amlodipine (am [...] may report side effects to FDA at 4-392-FZD-9400. What other drugs will affect amlodipine? Tell your doctor about all your current medicines and any you start or stop using, especially: ? nitroglycerin; ?? simvastatin (Zocor, Simcor, Vytorin); or ?? any other heart or blood pressure medications. This list is not complete. Other drugs may interact with amlodipine, including prescription and yvrx-tvf-xsmtpii medicines, vitamins, and herbal products. Not all [...] to ensure that the information provided by [employer]. ('Multum') is accurate, up-to-date, and complete, but no guarantee is made to that effect. Drug information contained herein may be time sensitive. HALKAR information has been compiled for use by healthcare practitioners and consumers in the [place] and therefore HALKAR does not warrant that uses outside of the [place] are appropriate, unless specifically indicated otherwise. Codys drug information does not endorse drugs, diagnose patients or recommend therapy. Codys drug information is an informational resource designed [...] effective or appropriate for any given patient. [employer] does not assume any responsibility for any aspect of healthcare administered with the aid of information H[employer] provides. The information contained herein is not intended to cover all possible uses, directions, precautions, warnings, drug interactions, allergic reactions, or adverse effects. If you have questions about the drugs you are taking, check with your doctor, nurse or pharmacist. Copyright 6344-9785 [employer]. Version: 14.. Revision Date: 01/24/2017. clopidogrel (kloe [...] may report side effects to FDA at 6-567-DTO-5646. What other drugs will affect clopidogrel? Certain other medicines may increase your risk of bleeding, including aspirin. Avoid taking aspirin unless your doctor tells you to. Tell your doctor about all your other medicines, especially: ? any other medicines to treat or prevent blood clots; ?? a stomach acid email engineer such as omeprazole, Nexium, or Prilosec; ?? an antidepressant; ?? an opioid medication; ?? a blood thinner--warfarin, Coumadin, Jantoven; or ?? NSAIDs (nonsteroidal anti-inflammatory drugs)--ibuprofen (Advil, Motrin), naproxen (Aleve), celecoxib, diclofenac, indomethacin, meloxicam, and others. This list is not complete. Other drugs may affect clopidogrel, including prescription and qrpt-ejh-khzogvp medicines, vitamins, and herbal products. Not all [...] to ensure that the information provided by [employer]. ('Multum') is accurate, up-to-date, and complete, but no guarantee is made to that effect. Drug information contained herein may be time sensitive. HALKAR information has been compiled for use by healthcare practitioners and consumers in the [place] and therefore HALKAR does not warrant that uses outside of the [place] are appropriate, unless specifically indicated otherwise. HALKAR's drug information does not endorse drugs, diagnose patients or recommend therapy. Codys drug information is an informational resource designed [...] effective or appropriate for any given patient. [employer] does not assume any responsibility for any aspect of healthcare administered with the aid of information H[employer] provides. The information contained herein is not intended to cover all possible uses, directions, precautions, warnings, drug interactions, allergic reactions, or adverse effects. If you have questions about the drugs you are taking, check with your doctor, nurse or pharmacist. Copyright 0018-3811 [employer]. Version: 15.01. Revision Date: 08/07/2018. ranolazine (ra [...] following drugs: ? clarithromycin; ?? nefazodone; ?? Galena's wort; ?? antifungal medicine--itraconazole, ketoconazole; ?? HIV [...] may report side effects to FDA at 3-309-AWB-3004. What other drugs will affect ranolazine? Many [...] interact with ranolazine. This includes prescription and kepn-hzb-thojdtd medicines, vitamins, and herbal products. Give a [...] to ensure that the information provided by [employer]. ('Multum') is accurate, up-to-date, and complete, but no guarantee is made to that effect. Drug information contained herein may be time sensitive. HALKAR information has been compiled for use by healthcare practitioners and consumers in the [place] and therefore HALKAR does not warrant that uses outside of the [place] are appropriate, unless specifically indicated otherwise. HALKAR's drug information does not endorse drugs, diagnose patients or recommend therapy. Codys drug information is an informational resource designed [...] effective or appropriate for any given patient. [employer] does not assume any responsibility for any aspect of healthcare administered with the aid of information HALKAR provides. The information contained herein is not intended to cover all possible uses, directions, precautions, warnings, drug interactions, allergic reactions, or adverse effects. If you have questions about the drugs you are taking, check with your doctor, nurse or pharmacist. Copyright 6481-4230 [employer]. Version: 11.. Revision Date: 12/04/2015. CIGARETTE SMOKING: The facts are clear, cigarette smoking will shorten your life. Smoking can cause many illnesses along the way. As a healthcare provider, we recommend that you stop smoking. Assistance with quitting is available by contacting 0-159-CXUX-NOW. This is a free resource providing counseling, [...] Be sure to sign up for the [employer] patient portal, which gives you 09/05 access to your medical information ??? including these discharge instructions ??? using your computer, smartphone, or tablet. Just go to BandApp to get started. Questions? Call . [facility] would like to thank you for allowing us to assist you with your healthcare needs. MICHELE Skaggs JUDY D, (or public health representative) have received the above patient education materials/instructions and have verbalized understanding: Patient Signature _ Date/Time Patient Neurology Stroke Physician Signature (if needed) Date/Time Clinician/Hospital Neurology Stroke Physician Signature (if needed) Date/Time Electronically signed by [facility], [facility] Conversion Employee Benefits Insurance Agent Cerner at 02/04/2023 1:58 PM CDT documented in this encounter Plan of Treatment Not on file documented as of this encounter Visit Diagnoses Not on filedocumented in this encounter Care Teams Sweep Press Operator Relationship Specialty Start Date End Date Jay Howell MD [address] [place] [phone] PCP - General Emergency Medicine 11/12/23 documented as of this encounter
--- OUTSIDE RECORDS SUMMARY | 2025-08-07 08:50 | XMS_ITS | Encounter Summary ---
Author Organization [employer] ([place], [place], [place], [place]) Address [address] [place] [address] Care Team Providers Care Atomic Welder Name Role Phone Jay Howell MD Primary Care Provider [phone] Encounter Details Date Type Department Care Team (Late st Contact Info) Description 12/20/2018 Transcribed Document [facility] [place] [address] [place] [address] ProviderJessie MD [address] [place] [address] Social History Tobacco Use Types Packs/Day Years Used Date Smoking Tobacco: Never Assessed Comments Unknown Sex and Gender Information Value Date Recorded Sex Assigned at Not on file Legal Sex Female 7:30 PM CDT Gender Identity Not on file Sexual Orientation Not on file documented as of this encounter Miscellaneous Notes * Cerner Conversion Note - Historical ProviderMD - 12/20/2018 3:14 PM FILM MASKER Pain Assessment Entered On: 12/21/2018 4:53 EST [...] on filedocumented in this encounter Care Teams Atomic Welder Relationship Specialty Start Date End Date Jay Howell MD [address] [place] [phone] PCP - General Emergency Medicine 11/12/23 documented as of this encounter
--- OUTSIDE RECORDS SUMMARY | 2025-08-07 08:50 | XMS_ITS | Encounter Summary ---
Author Organization [employer] ([place], [place], [place], [place]) Address [address] [place] [address] Care Team Providers Care Activities Leader Name Role Phone Jay Howell MD Primary Care Provider [phone] Encounter Details Date Type Department Care Team (Late st Contact Info) Description 12/21/2018 Transcribed Document [facility] [place] [address] [place] [address] ProviderJessie MD [address] [place] [address] Social History Tobacco Use Types Packs/Day Years Used Date Smoking Tobacco: Never Assessed Comments Unknown Sex and Gender Information Value Date Recorded Sex Assigned at Not on file Legal Sex Female 7:30 PM CDT Gender Identity Not on file Sexual Orientation Not on file documented as of this encounter Miscellaneous Notes * Cerner Conversion Note - Jessie ProviderMD - 12/21/2018 9:33 AM CONTINUOUS PICKLING LINE PICKLER Care Management Assessment/Plan Entered On: 12/21/2018 9:34 EST Performed On: 12/21/2018 9:33 EST by ANISH BRAN RN Care Management Note Care Management Note Report : ANISH BRAN RN - 12/21/18 09:37:01 Discharging today ANISH BRAN RN - 12/21/2018 12:24 EST Care Management Note : Order for cardiac rehab to the program at [facility] - they will ocntact pt Documentation Status Complete : Yes ANISH BRAN RN - 12/21/2018 9:33 EST Discharge Planning Details Discharge Home : Home with spouse/significant other Discharge Placement Needs : Home Persons Assisting Patient at Home : Spouse Transportation Needs : Family/Friend ANISH BRAN RN - 12/21/2018 9:33 EST Final Discharge Disposition Note-CM Discharge To Care Management : Home/Residential/Skilled Nursing or Self Care -01 ANISH BRAN RN - 12/21/2018 9:33 EST Electronically signed by [facility], [facility] Conversion Waste Reduction Coordinator Cerner at 02/04/2023 2:07 PM CDT documented in this encounter Plan of Treatment Not on file documented as of this encounter Visit Diagnoses Not on filedocumented in this encounter Care Teams Activities Leader Relationship Specialty Start Date End Date Jay Howell MD [address] [place] [phone] PCP - General Emergency Medicine 11/12/23 documented as of this encounter
--- OUTSIDE RECORDS SUMMARY | 2025-08-07 08:50 | XMS_ITS | Encounter Summary ---
Author Organization [employer] ([place], [place], [place], [place]) Address [address] [place] [address] Care Team Providers Care Drill Runner Helper Name Role Phone Jay Howell MD Primary Care Provider [phone] Encounter Details Date Type Department Care Team (Late st Contact Info) Description 12/21/2018 Transcribed Document [facility] [place] Family Medicine [facility] [place] [address] ProviderJessie MD [address] [place] [id number] Social History Tobacco Use Types Packs/Day Years Used Date Smoking Tobacco: Never Assessed Comments Unknown Sex and Gender Information Value Date Recorded Sex Assigned at Not on file Legal Sex Female 7:30 PM CDT Gender Identity Not on file Sexual Orientation Not on file documented as of this encounter Miscellaneous Notes * Cerner Conversion Note - Jessie Yuen MD - 12/21/2018 11:50 AM BILLING ADMINISTRATOR [address] , [place], [place] [id number] Patient Copy Patient Information: Name: SKYLER MONTOYA Current Date: 12/21/2018 11:50:40 : 1940 Patient Address: [address] [place] [id number] Patient Attending Physician: FREDY YAÑEZ MD-CAR Primary Care Provider: TARA CHEN (REF), -MED Primary Care Provider Discharge Diagnosis: CAD (coronary artery disease); DM (diabetes mellitus); Exertional angina; HLD (hyperlipidemia); HTN (hypertension); Hx of CABG; DANTE (obstructive sleep apnea); Paroxysmal A-fib Weight on Admission: 158 lb, 0 oz Comment: Follow-up Instructions: With: Address: When: [facility] [address], [place] [address] [place] [address] Business (1) In 1 month 01/21/2019 With: Address: When: [facility] [address], [address] [place], [place] [id number] Business (1) Within 2 to 5 weeks [...] What foods can I eat? GrainsBreads, including Kazakh, white, jie, wheat, raisin, rye, oatmeal, and Indonesian. Tortillas that are neither fried nor made with lard or trans fat. Low-fat rolls, including hotdog and hamburger buns and Sri [place]ankan muffins. Biscuits. Muffins. Waffles. Pancakes. Light popcorn. Whole-grain cereals. Flatbread. Magnolia toast. Pretzels. Breadsticks. Rusks. Low-fat snacks. Low-fat [...] cottage cheese. Whole-milk cheeses, including blue (fredo), [place] Arm[place], Brie, Nate, Indian, Havarti, Cape Verdean, cheddar, Camembert, and Myrtle. Whole or 2% milk that is liquid, [...] that has suet, meat fat, or shortening. Terry butter, hydrogenated oils, palm oil, coconut oil, [...] can cause a heart attack (myocardial infarction, [place]). CAD is a leading cause of for [...] 12/25/2012 Document Revised: 03/10/2017 Document Reviewed: 02/04/2015 [employer] Patient Education ? 2017 [employer] Groin Site Care Refer to this [...] Document Reviewed: 11/05/2011 ExitCare? Patient Information ?2013 [employer]. Angiogram An angiogram, also called angiography, is [...] including vitamins, herbs, eye drops, creams, and ombi-gvl-haeuoct medicines. ??? Any problems you or family [...] 03/06/2014 Elsevier Interactive Patient Education ? 2017 [employer] Medication Leaflets: valsartan (elin LILY foster) [...] valsartan; ?? if you are on a mkd-tqyx-amxg; ?? if you are dehydrated; or ?? [...] may report side effects to FDA at 0-068-RIH-1494. What other drugs will affect valsartan? Tell [...] may interact with valsartan, including prescription and ilog-hkh-fvgomzs medicines, vitamins, and herbal products. Not all [...] to ensure that the information provided by [employer]. ('[employer]') is accurate, up-to-date, and complete, but no guarantee is made to that effect. Drug information contained herein may be time sensitive. [employer] information has been compiled for use by healthcare practitioners and consumers in the [place] and therefore [employer] does not warrant that uses outside of the [place] are appropriate, unless specifically indicated otherwise. [employer]'s drug information does not endorse drugs, diagnose patients or recommend therapy. [employer]'s drug information is an informational resource designed [...] effective or appropriate for any given patient. [facility] does not assume any responsibility for any aspect of healthcare administered with the aid of information [facility] provides. The information contained herein is not intended to cover all possible uses, directions, precautions, warnings, drug interactions, allergic reactions, or adverse effects. If you have questions about the drugs you are taking, check with your doctor, nurse or pharmacist. Copyright 2308-[address] [facility]. Version: 16.05. Revision Date: 09/08/2016. hydralazine (bob [...] may report side effects to FDA at 9-931-YZO-4679. What other drugs will affect hydralazine? Tell your doctor about all your current medicines and any you start or stop using, especially: ? diazoxide (an injectable blood pressure medication); or ?? an MAO inhibitor--isocarboxazid, linezolid, methylene blue injection, phenelzine, rasagiline, selegiline, tranylcypromine, and others. This list is not complete. Other drugs may interact with hydralazine, including prescription and edfy-ebr-ydbtoxr medicines, vitamins, and herbal products. Not all [...] to ensure that the information provided by [employer]') is accurate, up-to-date, and complete, but no guarantee is made to that effect. Drug information contained herein may be time sensitive. [employer] information has been compiled for use by healthcare practitioners and consumers in the [place] and therefore [employer] does not warrant that uses outside of the [place] are appropriate, unless specifically indicated otherwise. [employer]'s drug information does not endorse drugs, diagnose patients or recommend therapy. [employer] drug information is an informational resource designed [...] effective or appropriate for any given patient. [employer] does not assume any responsibility for any aspect of healthcare administered with the aid of information [employer] provides. The information contained herein is not intended to cover all possible uses, directions, precautions, warnings, drug interactions, allergic reactions, or adverse effects. If you have questions about the drugs you are taking, check with your doctor, nurse or pharmacist. Copyright 1387-4221 [employer]. Version: 5.01. Revision Date: 10/26/2017. amlodipine (am [...] may report side effects to FDA at 7-679-PMG-7733. What other drugs will affect amlodipine? Tell your doctor about all your current medicines and any you start or stop using, especially: ? nitroglycerin; ?? simvastatin (Zocor, Simcor, Vytorin); or ?? any other heart or blood pressure medications. This list is not complete. Other drugs may interact with amlodipine, including prescription and uxja-wde-nsedosv medicines, vitamins, and herbal products. Not all [...] to ensure that the information provided by [employer]') is accurate, up-to-date, and complete, but no guarantee is made to that effect. Drug information contained herein may be time sensitive. [employer] information has been compiled for use by healthcare practitioners and consumers in the [place] and therefore [employer] does not warrant that uses outside of the [place] are appropriate, unless specifically indicated otherwise. [employer] drug information does not endorse drugs, diagnose patients or recommend therapy. [employer] drug information is an informational resource designed [...] effective or appropriate for any given patient. [employer] does not assume any responsibility for any aspect of healthcare administered with the aid of information [employer] provides. The information contained herein is not intended to cover all possible uses, directions, precautions, warnings, drug interactions, allergic reactions, or adverse effects. If you have questions about the drugs you are taking, check with your doctor, nurse or pharmacist. Copyright 8520-1868 [employer]. Version: 14.. Revision Date: 01/24/2017. clopidogrel (kloe [...] may report side effects to FDA at 7-972-PKJ-1531. What other drugs will affect clopidogrel? Certain other medicines may increase your risk of bleeding, including aspirin. Avoid taking aspirin unless your doctor tells you to. Tell your doctor about all your other medicines, especially: ? any other medicines to treat or prevent blood clots; ?? a stomach acid negative assembler such as omeprazole, Nexium, or Prilosec; ?? an antidepressant; ?? an opioid medication; ?? a blood thinner--warfarin, Coumadin, Jantoven; or ?? NSAIDs (nonsteroidal anti-inflammatory drugs)--ibuprofen (Advil, Motrin), naproxen (Aleve), celecoxib, diclofenac, indomethacin, meloxicam, and others. This list is not complete. Other drugs may affect clopidogrel, including prescription and vxoa-pkj-dujqncb medicines, vitamins, and herbal products. Not all [...] to ensure that the information provided by [employer]') is accurate, up-to-date, and complete, but no guarantee is made to that effect. Drug information contained herein may be time sensitive. [employer] information has been compiled for use by healthcare practitioners and consumers in the [place] and therefore [employer] does not warrant that uses outside of the [place] are appropriate, unless specifically indicated otherwise. [employer]'s drug information does not endorse drugs, diagnose patients or recommend therapy. [employer] drug information is an informational resource designed [...] effective or appropriate for any given patient. [employer] does not assume any responsibility for any aspect of healthcare administered with the aid of information [employer] provides. The information contained herein is not intended to cover all possible uses, directions, precautions, warnings, drug interactions, allergic reactions, or adverse effects. If you have questions about the drugs you are taking, check with your doctor, nurse or pharmacist. Copyright 3358-6128 [employer]. Version: 15.01. Revision Date: 08/07/2018. ranolazine (ra [...] following drugs: ? clarithromycin; ?? nefazodone; ?? [place]'s wort; ?? antifungal medicine--itraconazole, ketoconazole; ?? HIV [...] may report side effects to FDA at 4-298-CON-6206. What other drugs will affect ranolazine? Many [...] interact with ranolazine. This includes prescription and feuy-emw-klmznbw medicines, vitamins, and herbal products. Give a [...] to ensure that the information provided by [employer]') is accurate, up-to-date, and complete, but no guarantee is made to that effect. Drug information contained herein may be time sensitive. [employer] information has been compiled for use by healthcare practitioners and consumers in the [place] and therefore [employer] does not warrant that uses outside of the [place] are appropriate, unless specifically indicated otherwise. [employer]'s drug information does not endorse drugs, diagnose patients or recommend therapy. [employer] drug information is an informational resource designed [...] effective or appropriate for any given patient. [employer] does not assume any responsibility for any aspect of healthcare administered with the aid of information [employer] provides. The information contained herein is not intended to cover all possible uses, directions, precautions, warnings, drug interactions, allergic reactions, or adverse effects. If you have questions about the drugs you are taking, check with your doctor, nurse or pharmacist. Copyright 0401-8244 [employer]. Version: 11.. Revision Date: 12/04/2015. CIGARETTE SMOKING: The facts are clear, cigarette smoking will shorten your life. Smoking can cause many illnesses along the way. As a healthcare provider, we recommend that you stop smoking. Assistance with quitting is available by contacting 3-878-DTPF-NOW. This is a free resource providing counseling, [...] Be sure to sign up for the [employer] patient portal, which gives you 09/05 access to your medical information ??? including these discharge instructions ??? using your computer, smartphone, or tablet. Just go to [employer] to get started. Questions? Call . [facility] would like to thank you for allowing us to assist you with your healthcare needs. MICHELE Skgags JUDY D, (or escrow representative) have received the above patient education materials/instructions and have verbalized understanding: Patient Signature _ Date/Time Patient Buckle Stringer Signature (if needed) Date/Time Clinician/Hospital Buckle Stringer Signature (if needed) Date/Time Electronically signed by [facility], [facility] Conversion Shore Worker Cerner at 02/04/2023 1:57 PM CDT documented in this encounter Plan of Treatment Not on file documented as of this encounter Visit Diagnoses Not on filedocumented in this encounter Care Teams Drill Runner Helper Relationship Specialty Start Date End Date Jay Howell MD [address] [place] [phone] PCP - General Emergency Medicine 11/12/23 documented as of this encounter
--- OUTSIDE RECORDS SUMMARY | 2025-08-07 08:50 | XMS_ITS | Encounter Summary ---
Author Organization [email or web address] ([place], [place], [place], [place]) Address [address] [place] [address] Care Team Providers Care Oil Burner Technician Name Role Phone Jay Howell MD Primary Care Provider [phone] Encounter Details Date Type Department Care Team (Late st Contact Info) Description 12/20/2018 Transcribed Document [facility] [place] Family Medicine [address] [place] [address] ProviderJessie MD [address] [place] [address] Social History Tobacco Use Types Packs/Day Years Used Date Smoking Tobacco: Never Assessed Comments Unknown Sex and Gender Information Value Date Recorded Sex Assigned at Not on file Legal Sex Female 7:30 PM CDT Gender Identity Not on file Sexual Orientation Not on file documented as of this encounter Miscellaneous Notes * Cerner Conversion Note - Jessie Yuen MD - 12/20/2018 8:00 AM MOBILE DEVICE DEVELOPER Patient: SKYLER MONTOYA Age: 77 years Sex: Female : 1940 Associated Diagnoses: None Author: FREDY PACHECO MD-CAR Basic Information PCP: Dr. Moeller Population Health Manager: Stephania Garcia MD Chief Complaint Pre-op clearance; shoulder surgery with [facility] Prieto Watters at [facility] Stress test 12/06/18; abnormal History of Present [...] All Problems Chest pain / SNOMED CT 88425294 / Complaint of Cataract / Patient Care / Confirmed Glaucoma / Patient Care / Confirmed Coronary artery disease / SNOMED CT 0267511448 / Confirmed Stented coronary artery / SNOMED CT 9898770828 / Confirmed High blood pressure / SNOMED CT 16045900 / Confirmed Hyperlipidemia / SNOMED CT 68680236 / Confirmed Clotting disorder / SNOMED CT 042925008 / Confirmed COPD / SNOMED CT 42827445 / Confirmed GERD - Gastro-esophageal reflux disease / SNOMED CT 9695741493 / Confirmed Multiple renal cysts / SNOMED CT 633234165 / Confirmed UTI - Urinary tract infection / SNOMED CT 5550946567 / Confirmed Arthritis / SNOMED CT 7202495 / Confirmed Diabetes mellitus / SNOMED CT 207973423 / Confirmed Blood clot / SNOMED CT 013591921 / Confirmed Emphysema / SNOMED CT 335545882 / Confirmed Apnea, sleep / SNOMED CT 431036514 / Confirmed Hx of pulmonary embolus / SNOMED CT 373311438 / Confirmed Chronic anticoagulation / SNOMED CT 812672556 / Confirmed Atrial fibrillation with RVR / SNOMED CT 6532079010 / Confirmed History of obstructive sleep apnea / IMO 70826127 / Confirmed Histories No education data available. [...] History: Active Cataract Glaucoma Coronary artery disease (9002801946) Stented coronary artery (5383658116) High blood pressure (34081259) Hyperlipidemia (53125814) COPD (17024931) GERD - Gastro-esophageal reflux disease (8615751360) Multiple renal cysts (371875441) UTI - Urinary tract infection (7120236065) Arthritis (8715539) Diabetes mellitus (711985208) Emphysema (236007796) Apnea, sleep (238062121) Hx of pulmonary embolus (132938058) Chronic anticoagulation (470351420) Atrial fibrillation with RVR (2874720054) Family History: Cardiomyopathy Child Stroke Brother Heart attack Brother Sister Leukemia Child Cancer Father Mother Sister Coronary heart disease Child Procedure history: femur repair. Appendectomy (247274378). uterine suspension. Hysterectomy (885836930). back surgury. Coronary artery bypass graft (300001112). Cholecystectomy (04863999). Hip replacement (6339030983). cataract surgury. Social History Social & Psychosocial [...] of motion, Normal strength. Integumentary: Warm, Dry, [place]. Neurologic: Alert, Oriented. Psychiatric: Cooperative. Review / [...] post cath. Electronically signed by Sivan, [facility] Conversion Electron Microscopist Cerner at 02/04/2023 2:21 PM CDT documented in this encounter Plan of Treatment Not on file documented as of this encounter Visit Diagnoses Not on filedocumented in this encounter Care Teams Oil Burner Technician Relationship Specialty Start Date End Date Jay Howell MD [address] [place] [phone] PCP - General Emergency Medicine 11/12/23 documented as of this encounter
--- OUTSIDE RECORDS SUMMARY | 2025-08-07 08:50 | XMS_ITS | Encounter Summary ---
Author Organization [employer] ([place], [place], [place], [place]) Address [address] [place] [address] Care Team Providers Care Gsa Coordinator Name Role Phone Jay Howell MD Primary Care Provider [phone] Encounter Details Date Type Department Care Team (Late st Contact Info) Description 02/13/2021 Transcribed Document [facility] [place] [address] [place] [address] ProviderJessie MD [address] [place], [place] [address] Social History Tobacco Use Types Packs/Day Years Used Date Smoking Tobacco: Never Assessed Comments Unknown Sex and Gender Information Value Date Recorded Sex Assigned at Not on file Legal Sex Female 7:30 PM CDT Gender Identity Not on file Sexual Orientation Not on file documented as of this encounter Miscellaneous Notes * Cerner Conversion Note - Historical ProviderMD - 02/13/2021 11:43 AM CDT [facility] Saji IntraOp Summary Primary Physician: FABY GRIMM MD Finalized Date/Time: 02/13/21 12:03:45 Pt. Name: SKYLER MONTOYAO.B./Sex: 1940 Female Med Rec #: [id number] Physician: FABY GRIMM MD Financial #: [id number] Pt. Type: O Room/Bed: END/ Admit/Disch: 02/13/21 09:44:00 - Institution: [facility] - Case Attendance Entry 1 Entry 2 Entry 3 Case Attendee FABY GRIMM MD MILLER, MELISSA A RN ELVIN HUNG Role Performed Surgeon/Proceduralist, Professor/Nurse Anesthetist, First Scrub, First First Time In 02/13/21 [...] SHANA M, STEPHANIE, Denisa Anderson Rn -ANS PHYSICAL THERAPY DIRECTOR-ANS Role Performed Anesthesiologist of PHYSICAL THERAPY DIRECTOR/Nurse Microbiology Lab Analyst Professor/Nurse Anesthetist, First Record Time In 02/13/21 11:35:00 02/13/21 [...] RN 02/13/21 12:00:47 02/13/21 12:00:47 02/13/21 12:00:47 [facility] Endo - Case Attendance Audit 02/13/21 12:00:47 Manager Investment: [id number] Modifier: [id number] 1 <+> Time Out 1 <*> Procedure [...] Biopsy, Colon Biopsy, Colon Polypectomy 02/13/21 12:00:36 Manager Investment: [id number] Modifier: [id number] 1 <*> Procedure Colonoscopy, Esophagogastroduodenoscopy, Esophageal Biopsy, Gastric Biopsy, Colon Biopsy 2 <*> Procedure Esophageal Biopsy, Gastric Biopsy, Colon Biopsy 3 <*> Procedure Esophageal Biopsy, Gastric Biopsy, Colon Biopsy 4 <*> Procedure Esophageal Biopsy, Gastric Biopsy, Colon Biopsy 5 <*> Procedure Esophageal Biopsy, Gastric Biopsy, Colon Biopsy 6 <*> Procedure Esophageal Biopsy, Gastric Biopsy, Colon Biopsy 02/13/21 11:58:05 Manager Investment: [id number] Modifier: [id number] 1 <*> Procedure Colonoscopy, Esophagogastroduodenoscopy <+> 2 Procedure <+> 3 Procedure <+> 4 Procedure <+> 5 Procedure <+> 6 Procedure 02/13/21 11:48:04 Manager Investment: [email or web address] Modifier: [id number] 1 <+> Time In 1 <*> Procedure Colonoscopy, Esophagogastroduodenoscopy <+> 2 Time In <+> 2 Time Out <+> 3 Time In <+> 4 Time In <+> 5 Time In <+> 6 Case Attendee <+> 6 Role Performed <+> 6 Time In 02/13/21 11:38:46 Manager Investment: [email or web address] Modifier: [email or web address] <+> 2 Case Attendee <+> 2 Role Performed <+> 3 Case Attendee <+> 3 Role Performed <+> 4 Case Attendee <+> 4 Role Performed <+> 5 Case Attendee <+> 5 Role Performed [facility] Endo - Case times Entry 1 Patient In Room Time 02/13/21 11:35:00 Out Room Time 02/13/21 12:02:00 Anesthesia Start Time 02/13/21 11:35:00 Stop Time 02/13/21 12:02:00 Surgery / Procedure Times Start Time 02/13/21 11:43:00 Stop Time 02/13/21 12:00:00 Last Modified By: Denisa Anderson RN 02/13/21 12:00:45 [facility] Endo - Case times Audit 02/13/21 12:00:45 Manager Investment: [id number] Modifier: [id number] <+> 1 Out Room Time <+> 1 Stop Time <+> 1 Stop Time 02/13/21 11:45:26 Manager Investment: [email or web address] Modifier: [id number] <+> 1 Start Time [facility] Endo - Cautery Entry 1 ESU Identification Cautery Type Monopolar ESU ID Number [id number] ID Type Hospital Number Cautery Settings Cut Setting 5 Coag Setting 25 ESU Grounding Pad Ground Pad Type Adult Grounding Pad Site Right thigh Grounding Pad ELVIN HUNG Applied By Grounding Pad Site Warm, dry and intact Skin Condition Before Cautery Grounding Pad Site Unchanged Skin Condition After Cautery Last Modified By: Denisa Anderson RN 02/13/21 12:03:44 [facility] Endo - Cautery Audit 02/13/21 12:03:44 Manager Investment: [id number] Modifier: [id number] <+> 1 ID Number [facility] Endo - Cultures and Spec Summary Entry 1 Cultrures and Specimens Specimen Ordered: Yes Test(s) Routine/Path-Lab Requested/Final Disposition Last Modified By: Denisa Anderson RN 02/13/21 11:59:20 [facility] Endo - Delays Entry 1 Delay Reason Other, No Delay Duration 0 Minute(s) Last Modified By: LO HOFF RN 02/13/21 11:38:59 [facility] Endo - Departure from OR Entry 1 Integumentary Assessment Integumentary WDL Assessment WDL Transfer/Handoff Transfer to PACU Phase I Handoff Method Bedside/Face to face Post-op Transport Stretcher/Gurney Via Patient Transport LO HOFF RN, Accompanied by TRENTON GONZALEZ APRN, PHYSICAL THERAPY DIRECTOR-ANS Last Modified By: LO HOFF RN 02/13/21 11:39:01 [facility] Endo - Endoscopy Details Entry 1 Abdomen Procedure Soft, Non-Tender Assessment Procedure Abdomen 02/13/21 11:39:00 Assessment D/T Radio Frequency Ablation Abdominal Pressure Last Modified By: LO HOFF RN 02/13/21 11:39:05 [facility] Endo - Fire Risk Assessment Entry 1 [...] Modified By: LO HOFF RN 02/13/21 11:39:08 [facility] Endo - General Case Meeting Facilitator 1 Case Information OR Endo 01 [facility] Case Level 1 Room Verified Yes Wound Class III - Contaminated Specialty Gastroenterology Anesthesia Type General ASA Class 4 Diagnosis Preop Diagnosis dyspepsia, change in bowel habits Postop Same As Preop No Postop Diagnosis chronic gastritis, alexis's esophagus, IBS, colon polyp Last Modified By: Denisa Anderson RN 02/13/21 12:02:28 [facility] Endo - General Case Data Audit 02/13/21 12:02:28 Manager Investment: [email or web address] Modifier: [id number] 1 <*> Postop Same As Preop Yes 1 <*> Postop Diagnosis dyspepsia, change in bowel habits [facility] Endo - Intraoperative Assessment Entry 1 Valid History / Yes Physical in Chart Preoperative Yes Checklist Reviewed/Evaluated Patient is Latex No Sensitive Level of WDL Consciousness (WDL = Alert, Oriented to Person, Place, and Time) Last Modified By: LO HOFF RN 02/13/21 11:39:33 [facility] Endo - Intraoperative Equipment Entry 1 Equipment Intraop Monitoring Electrocardiogram Three lead placement (ECG) Electrode Placement Blood Pressure Arm, left upper Location Pulse Oximeter Hand, right Probe Site Antiembolic Devices Scopes Flexible Endoscopes Gastroscope Used Scope Serial E, P Number/Identificatio n Number Photo/Video Documentation Photo Yes Video No Last Modified By: LO HOFF RN 02/13/21 11:39:46 [facility] Endo - Patient Positioning Entry 1 Procedure [...] Modified By: LO HOFF RN 02/13/21 11:39:48 [facility] Endo - Sign In Entry 1 Patient, Site, Yes Procedure Identified Surgical Consent Yes Confirmed Surgical Site N/A Marked by person performing procedure Airway Hypothermia Risk No Warming Measures No Taken Last Modified By: LO HOFF RN 02/13/21 11:39:54 [facility] Endo - Sign Out Entry 1 RN [...] Modified By: Denisa Anderson RN 02/13/21 12:01:16 [facility] Endo - Surgical Procedures Entry 1 Entry [...] RN 02/13/21 12:01:06 02/13/21 12:01:06 02/13/21 12:01:06 [facility] Endo - Surgical Procedures Audit 02/13/21 12:01:06 Manager Investment: [id number] Modifier: [id number] <+> 1 Stop <+> 3 Stop <+> 4 Stop <+> 5 Stop <+> 6 Stop 02/13/21 12:00:33 Manager Investment: [id number] Modifier: [id number] <+> 6 Procedure <+> 6 Primary Procedure <+> 6 Primary Surgeon <+> 6 Specialty <+> 6 Start <+> 6 Wound Class <+> 6 Anesthesia Type <+> 6 Additional Procedure Description <+> 6 Physician States Cecum Reached 02/13/21 11:58:01 Manager Investment: [email or web address] Modifier: [id number] 1 <*> Procedure Colonoscopy 1 <+> Start [...] Anesthesia Type <+> 5 Additional Procedure Description [facility] Endo - Time Out Entry 1 Procedure [...] RN 02/13/21 12:03 Electronically signed by Sivan [facility] Conversion Preparation Supervisor Canning Cerner at 02/04/2023 2:05 PM CDT documented in this encounter Plan of Treatment Not on file documented as of this encounter Visit Diagnoses Not on filedocumented in this encounter Care Teams Gsa Coordinator Relationship Specialty Start Date End Date Jay Howell MD [address] [place] [phone] PCP - General Emergency Medicine 11/12/23 documented as of this encounter
--- OUTSIDE RECORDS SUMMARY | 2025-08-07 08:50 | XMS_ITS | Encounter Summary ---
Author Organization [employer] ([place], [place], [place], [place]) Address [address] [place] [address] Care Team Providers Care Assembly Room Supervisor Name Role Phone Jay Howell MD Primary Care Provider [phone] Encounter Details Date Type Department Care Team (Late st Contact Info) Description 02/13/[address] [facility] [place] Medicine [address] [place] [address] ProviderJessie MD [address] [place], [place] [address] Social History Tobacco Use Types Packs/Day Years Used Date Smoking Tobacco: Never Assessed Comments Unknown Sex and Gender Information Value Date Recorded Sex Assigned at Not on file Legal Sex Female 7:30 PM CDT Gender Identity Not on file Sexual Orientation Not on file documented as of this encounter Miscellaneous Notes * Cerner Conversion Note - Historical ProviderMD - 02/13/2021 11:30 AM CDT [facility] Saji PreOp Summary Primary Physician: FABY GRIMM MD Finalized Date/Time: 02/13/21 11:03:33 Pt. Name: SKYLER MONTOYAO.B./Sex: 1940 Female Med Rec #: [id number] Physician: FABY GRIMM MD Financial #: [id number] Pt. Type: O Room/Bed: END/ Admit/Disch: 02/13/21 09:44:00 - Institution: [facility] Endo PreOp Case Times Entry 1 In [...] NON-EXEMPT 02/13/21 11:03 Electronically signed by Sivan [facility] Conversion Stiff Neck Loader Cerner at 02/04/2023 2:00 PM CDT documented in this encounter Plan of Treatment Not on file documented as of this encounter Visit Diagnoses Not on filedocumented in this encounter Care Teams Assembly Room Supervisor Relationship Specialty Start Date End Date Jay Howell MD [address] [place] [phone] PCP - General Emergency Medicine 11/12/23 documented as of this encounter
--- OUTSIDE RECORDS SUMMARY | 2025-08-07 08:50 | XMS_ITS | Encounter Summary ---
[facility] Organization [facility] Address [address] [place] [address] Care Team Providers Care Cement Finisher Name Role Phone Jay Howell MD Primary Care Provider [phone] Encounter Details Date Type Department Care Team (Late st Contact Info) Description 06/08/2012 Conversion Encounter [facility] HISTORICAL CONV [address] [place] [address] Interface, See Report Social History [...] Amado M.D. ' Kailey Ruff APRN [address] [facility], [address] [place] [address] [employer] NEW PATIENT EVALUATION SKYLER MONTOYA : 1940 [...] to Macrod[employer]in. SOCIAL HISTORY: She lives in [place] with her . She is accompanied today by her nuixkvzb-yj-yip who is also a patient of our practice. 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 She is not working now. She does [...] dryness and this is managed by an ceramic products sales engineer. She has the hematuria and pain with [...] repeat her anticardiolipin antibody since this can ticket dispenser changer time. If the anticardiolipin antibody is [...] about her diagnosis of pulmonary embolus at [facility] and any additional testing done [...] available. Tana Rivera M.D.* TRUNG/rxaldarlene Doc. ID [id number] Rev. #0 cc: Avtar Moeller M.D.* Dr. Etienne De La Paz Page 4 of 4 Page 1 of 4 Authenticated and Edited by TANA RIVERA M.D. On 06/09/12 3:24:05 PM * Interface, See Report - 06/08/2012 4:16 PM EDT Zurdo Schuler M.D. ' Tana Rivera M.D. ' Rosalio Marie M.D. ' STEPHANIE Quezada M.D. ' Heath Amado M.D. ' Kailey Ruff APRN [address] [place] [address], [place] [address] [place] [address] [employer] OFFICE NOTE SKYLER MONTOYA : 1940 DATE [...] medicines and I will try to get hospital social worker to give her some help with this. Also, I will speak to Dr. De La Paz about this and I have a call into his office. Tana Rivera M.D.* TRUNG/ruperto Doc. ID [id number] Rev. #0 cc: Etienne De La Paz Jr., M.D.* Avtar Moeller M.D.* Page 2 of 2 Page 1 of 2 Authenticated by TANA RIVERA M.D. On 07/07/2012 04:36:41 PM * Interface, See Report - 06/08/2012 4:16 PM EDT Zurdo Schuler M.D. ' Tana Rivera M.D. ' Rosalio Marie M.D. ' STEPHANIE Quezada M.D. ' Heath Amado M.D. ' Kailey Ruff APRN [address] [facility], [address] [place] [id number] [employer] OFFICE NOTE SKYLER MONTOYA : 1940 DATE [...] antibodies. Tana Rivera M.D.* RME/rxalw Doc. ID [id number] Rev. #0 cc: Avtar Moeller M.D.* Page 2 of 2 Page 1 of 2 Authenticated by TANA RIVERA M.D. On 08/15/2012 09:44:06 AM * Interface, See Report - 06/08/2012 4:16 PM EDT Zurdo Schuler M.D. ' Tana Rivera M.D. ' Rosalio Marie M.D. ' STEPHANIE Quezada M.D. ' David Calvillo M.D. ' Haeth Amado M.D. ' Kailey Ruff APRN [address] [place] [address] [place] [address] [employer] OFFICE NOTE SKYLER MONTOYA : 1940 DATE [...] develop. Tana Rivera M.D.* RMEmiliano/rxalw Doc. ID [id number] Rev. #0 cc: Avtar Moeller M.D.* Jorje Watters M.D.* SKYLER MONTOYA : 1940 DATE OF VISIT: 04/26/2013 Page 2 of 2 Page 1 of 2 DOCUMENT CODE :[facility]: PHYSICIAN CODE :[id number]: Authenticated by TANA RIVERA M.D. On 05/04/2013 10:54:04 AM * Interface, See Report - 06/08/2012 4:16 PM EDT Zurdo Schuler M.D. ' Tana Rivera M.D. ' Rosalio Marie M.D. ' STEPHANIE Quezada M.D. ' David Calvillo M.D. ' Heath Amado M.D. ' Kailey Ruff APRN [facility], [place] [address] [place] [address] [employer] [facility] [employer] OFFICE NOTE SKYLER MONTOYA : 1940 DATE [...] develop. Tana Rivera M.D.* RMEmiliano/rxalw Doc. ID [id number] Rev. #0 cc: Avtar Moeller M.D.* Etienne De La Paz Jr., M.D.* Jorje Watters M.D.* SKYLER MONTOYA : 1940 DATE OF VISIT: 07/12/2013 Page 2 of 2 Page 1 of 2 DOCUMENT CODE :[facility]: PHYSICIAN CODE :[id number]: Authenticated by TANA RIVERA M.D. On 07/16/2013 01:57:36 PM documented in this encounter Plan of Treatment Not on file documented as of this encounter Visit Diagnoses Not on filedocumented in this encounter Care Teams Cement Finisher Relationship Specialty Start Date End Date Jay Howell MD [address] [place] [address] PCP - General Emergency Medicine 04/28/23 documented as of this encounter
--- OUTSIDE RECORDS SUMMARY | 2025-08-07 08:50 | XMS_ITS | Encounter Summary ---
Author Organization [employer] ([place], [place], [place], [place]) Address [address] [place] [address] Care Team Providers Care Dumpster Operator Name Role Phone Jay Howell MD Primary Care Provider [phone] Encounter Details Date Type Department Care Team (Late st Contact Info) Description 12/21/2018 Transcribed Document [facility] [place] [address] [place] [address] ProviderJessie MD [address] [place] [address] Social History Tobacco Use Types Packs/Day Years Used Date Smoking Tobacco: Never Assessed Comments Unknown Sex and Gender Information Value Date Recorded Sex Assigned at Not on file Legal Sex Female 7:30 PM CDT Gender Identity Not on file Sexual Orientation Not on file documented as of this encounter Miscellaneous Notes * Cerner Conversion Note - Jessie Yuen MD - 12/21/2018 10:31 AM MANAGER [place] Discharge Instructions Entered On: 12/21/2018 10:31 EST [...] - 12/21/2018 10:33 EST Electronically signed by [facility], [facility] Conversion Facility Administrator Cerner at 02/04/2023 1:57 PM CDT documented in this encounter Plan of Treatment Not on file documented as of this encounter Visit Diagnoses Not on filedocumented in this encounter Care Teams Dumpster Operator Relationship Specialty Start Date End Date Jay Howell MD [address] [place] [phone] PCP - General Emergency Medicine 11/12/23 documented as of this encounter
--- OUTSIDE RECORDS SUMMARY | 2025-08-07 08:50 | XMS_ITS | Encounter Summary ---
Author Organization [employer] ([place], [place], [place], [place]) Address [address] [place] [address] Care Team Providers Care Assembly Manager Name Role Phone Jay Howell MD Primary Care Provider [phone] Encounter Details Date Type Department Care Team (Late st Contact Info) Description 12/20/2018 Transcribed Document [facility] [place] [address] [place] [address] ProviderJessie MD [address] [place] [address] Social History Tobacco Use Types Packs/Day Years Used Date Smoking Tobacco: Never Assessed Comments Unknown Sex and Gender Information Value Date Recorded Sex Assigned at Not on file Legal Sex Female 7:30 PM CDT Gender Identity Not on file Sexual Orientation Not on file documented as of this encounter Miscellaneous Notes * Cerner Conversion Note - Jessie ProviderMD - 12/20/2018 9:47 PM SOFTWARE IMPLEMENTATION PROJECT MANAGER Rapid Response Team Documentation Entered On: [...] Admission Diagnosis : 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 EKG shows no ST elevation. Cardiac START UP SPECIALIST notified. elevated blood pressure as well. nitro ordered and given. chest pain subsided. Patient Condition at End of Event : No S/S of Acute Distress Patient Disposition Post Event : No change in location/level of care Rapid Response Assembly Manager #1 : LO THEODORE RN BENGE, MELISSA V, RN - 12/20/2018 22:51 EST Rapid Response Systems Assessment Oxygen Therapy Mode : Nasal cannula Oxygen Flow Rate : 2 Liter/Min Cardiovascular Symptoms : Chest discomfort at rest Heart Rhythm : Regular Cardiac Rhythm : Normal sinus rhythm LO THEODORE RN - 12/20/2018 22:51 EST Electronically signed by [facility], [facility] Conversion Mitten Stitcher Cerner at 02/04/2023 2:10 PM CDT documented in this encounter Plan of Treatment Not on file documented as of this encounter Visit Diagnoses Not on filedocumented in this encounter Care Teams Assembly Manager Relationship Specialty Start Date End Date Jay Howell MD [address] [place] [phone] PCP - General Emergency Medicine 11/12/23 documented as of this encounter
--- OUTSIDE RECORDS SUMMARY | 2025-08-07 08:50 | XMS_ITS | Encounter Summary ---
Author Organization [employer] ([place], [place], [place], [place]) Address [address] [place] [address] Care Team Providers Care Machine Made Shoe Unit Worker Name Role Phone Jay Howell MD Primary Care Provider [phone] Encounter Details Date Type Department Care Team (Late st Contact Info) Description 10/13/2020 Transcribed Document [facility] [place] [address] [place] [address] ProviderJessie MD [address] [place] [address] Social History Tobacco Use Types Packs/Day Years Used Date Smoking Tobacco: Never Assessed Comments Unknown Sex and Gender Information Value Date Recorded Sex Assigned at Not on file Legal Sex Female 7:30 PM CDT Gender Identity Not on file Sexual Orientation Not on file documented as of this encounter Miscellaneous Notes * Cerner Conversion Note - Historical MD Alpa - 10/13/2020 6:59 PM MEDICAL CONCIERGE Patient: SKYLER MONTOYA Age: 79 Years Sex: [...] RTC prn Electronically signed by Sivan [facility] Conversion Fundraising Sale Representative Cerner at 02/04/2023 2:05 PM CDT documented in this encounter Plan of Treatment Not on file documented as of this encounter Visit Diagnoses Not on filedocumented in this encounter Care Teams Machine Made Shoe Unit Worker Relationship Specialty Start Date End Date Jay Howell MD [address] [place] [phone] PCP - General Emergency Medicine 11/12/23 documented as of this encounter
--- OUTSIDE RECORDS SUMMARY | 2025-08-07 08:51 | XMS_ITS | Encounter Summary ---
Author Organization [employer] ([place], [place], [place], [place]) Address [address] [place] [address] Care Team Providers Care Health And Social Care Teacher Name Role Phone Jay Howell MD Primary Care Provider [phone] Encounter Details Date Type Department Care Team (Late st Contact Info) Description 08/30/2020 Transcribed Document [facility] [place] [address] [place] [address] ProviderJessie MD [address] [place] [address] Social History Tobacco Use Types Packs/Day Years Used Date Smoking Tobacco: Never Assessed Comments Unknown Sex and Gender Information Value Date Recorded Sex Assigned at Not on file Legal Sex Female 7:30 PM CDT Gender Identity Not on file Sexual Orientation Not on file documented as of this encounter Miscellaneous Notes * Cerner Conversion Note - Jessie Yuen MD - 08/30/2020 8:14 AM RISK INVESTIGATOR Patient: SKYLER MONTOYA Age: 79 years Sex: [...] mg, 6 mL, 112 mL/Hr, IV Piggyback, [id number] DuoNeb 0.5 mg-2.5 mg/3 mL inhalation solution: [...] Tab, Oral, Daily, 30 Tab, 0 Refill(s) Sundance 7.5 mg-325 mg oral tablet: 1 Tab, [...] mL 300 mg 6 mL, IV Piggyback, T79RPgf dorzolamide 2% ophth soln 10 mL 1 [...] Confirmed Coronary artery disease / SNOMED CT 7747875039 / Confirmed Stented coronary artery / SNOMED CT 7159526543 / Confirmed High blood pressure / SNOMED CT 96714882 / Confirmed Hyperlipidemia / SNOMED CT 32402811 / Confirmed COPD / SNOMED CT 49739671 / Confirmed GERD - Gastro-esophageal reflux disease / SNOMED CT 1008743527 / Confirmed Multiple renal cysts / SNOMED CT 819943718 / Confirmed Arthritis / SNOMED CT 7180561 / Confirmed Diabetes mellitus / SNOMED CT 580454226 / Confirmed Emphysema / SNOMED CT 632560090 / Confirmed Apnea, sleep / SNOMED CT 196481447 / Confirmed Hx of pulmonary embolus / SNOMED CT 627487359 / Confirmed Chronic anticoagulation / SNOMED CT 754951028 / Confirmed Atrial fibrillation with RVR / SNOMED CT 1838882773 / Confirmed Chest pain / SNOMED CT 12529684 / Complaint of History of obstructive sleep apnea / IMO 65304696 / Confirmed, Active Problems (20) Apnea, sleep [...] days based on INR Electronically signed by [facility], [facility] Conversion Operations Research Director Cerner at 02/04/2023 2:10 PM CDT documented in this encounter Plan of Treatment Not on file documented as of this encounter Visit Diagnoses Not on filedocumented in this encounter Care Teams Health And Social Care Teacher Relationship Specialty Start Date End Date Jay Howell MD [address] [place] [phone] PCP - General Emergency Medicine 11/12/23 documented as of this encounter
--- OUTSIDE RECORDS SUMMARY | 2025-08-07 08:51 | XMS_ITS | Encounter Summary ---
Author Organization [employer] ([place], [place], [place], [place]) Address [address] [place] [address] Care Team Providers Care Production Broaching Machine Operator Name Role Phone Jay Howell MD Primary Care Provider [phone] Encounter Details Date Type Department Care Team (Late st Contact Info) Description 08/30/2020 Transcribed Document [facility] [place] Family Medicine [address] [place] [address] ProviderJessie MD [address] [place] [address] Social History Tobacco Use Types Packs/Day Years Used Date Smoking Tobacco: Never Assessed Comments Unknown Sex and Gender Information Value Date Recorded Sex Assigned at Not on file Legal Sex Female 7:30 PM CDT Gender Identity Not on file Sexual Orientation Not on file documented as of this encounter Miscellaneous Notes * Cerner Conversion Note - Jessie Yuen MD - 08/30/2020 10:43 AM OIL FIELD PUMPER Patient: SKYLER MONTOYA Age: 79 years Sex: [...] level of muscle per surgery *Operation RIGHT CHERRY GROWER access - ultrasound guided Aortogram with LEFT lower extremity run-off LEFT PT angioplasty ([id number] Nanocross) LEFT peroneal angioplasty (2.5-0r311rp Nanocross) RIGHT CHERRY GROWER closure (Angioseal) LEFT leg debridement 08/30/20 doing [...] Level 0.70 mg/dL 08/29/2020 02:04 Bun/Creatinine 22.9 [place] 08/29/2020 02:04 eGFR >60 mL/min/1.73m2 08/29/2020 02:04 eGFR NonAfrican >60 mL/min/1.73m2 08/29/2020 02:04 Bun/Creatinine 22.9 RI 08/29/2020 07:33 Sodium Level 138 mmol/L 08/29/2020 02:04 Potassium Level 3.8 mmol/L 08/30/2020 04:13 Chloride Level 108 mmol/L 08/29/2020 02:04 Carbon Dioxide Level 23 mmol/L 08/29/2020 02:04 Anion Gap 10 08/29/2020 02:04 Blood Urea Nitrogen 16 mg/dL 08/29/2020 02:04 Glucose Level 108 mg/dL RI 08/29/2020 02:04 Calcium Level 9.1 mg/dL 08/29/2020 02:04 MICRO: ACC: [id number] ORDER: Culture Blood DATE: 08/25/2020 05:01 SOURCE: Blood SITE: Reports Final 08/30/2020 06:01 No growth at 5 days. Pre 08/29/2020 06:01 No growth at 4 days. Pre 08/28/2020 06:01 No growth at 3 days. Pre 08/27/2020 06:01 No growth at 2 days. Pre 08/26/2020 06:01 No growth at 1 day. Pre 08/25/2020 23:02 Culture less than 24 Hrs old == ACC: [id number] ORDER: Culture Blood DATE: 08/25/2020 05:01 SOURCE: Blood SITE: Reports Final 08/30/2020 06:01 No growth at 5 days. Pre 08/29/2020 06:02 No growth at 4 days. Pre 08/28/2020 06:01 No growth at 3 days. Pre 08/27/2020 06:01 No growth at 2 days. Pre 08/26/2020 06:01 No growth at 1 day. Pre 08/25/2020 23:02 Culture less than 24 Hrs old == ACC: [id number] ORDER: Culture Wound and Stain DATE: 08/26/2020 15:23 SOURCE: Surgical Swab SITE: Leg Lower L Reports Final 08/29/2020 08:29 No growth Pre 08/27/2020 07:14 No growth GS 08/26/2020 18:13 Few White Blood Cells No organisms seen. == ACC: [id number] ORDER: Culture Wound and Stain DATE: 08/25/2020 05:00 SOURCE: Wound SITE: Leg Lower L Reports Final 08/28/2020 08:57 No growth Pre 08/26/2020 06:23 No growth GS 08/25/2020 07:26 No organisms seen. Few White Blood Cells Rare epithelial cells == ACC: [id number] ORDER: Culture AFB and Stain DATE: 08/26/2020 13:56 SOURCE: Surgical Swab SITE: Leg Lower L Reports AFS 08/27/2020 13:07 No Acid Fast Bacilli seen == ACC: [id number] ORDER: Culture Anaerobic DATE: 08/26/2020 13:56 SOURCE: Surgical Swab SITE: Leg Lower L Reports Pre 08/28/2020 07:01 No Anaerobic growth Pre 08/27/2020 07:47 Culture in progress == ACC: [id number] ORDER: Culture Fungus DATE: 08/26/2020 13:56 SOURCE: [...] filedocumented in this encounter Care Teams Production Broaching Machine Operator Relationship Specialty Start Date End Date Jay Howell MD [address] [place] [phone] PCP - General Emergency Medicine 11/12/23 documented as of this encounter
--- OUTSIDE RECORDS SUMMARY | 2025-08-07 08:51 | XMS_ITS | Encounter Summary ---
Author Organization [employer] ([place], [place], [place], [place]) Address [address] [address] Care Team Providers Care Bushel Girl Name Role Phone Jay Howell MD Primary Care Provider [phone] Encounter Details Date Type Department Care Team (Late st Contact Info) Description 12/20/2018 Transcribed Document [facility] [place] Family Medicine [address] [place] [address] ProviderJessie MD [address] [place] [address] Social History Tobacco Use Types Packs/Day Years Used Date Smoking Tobacco: Never Assessed Comments Unknown Sex and Gender Information Value Date Recorded Sex Assigned at Not on file Legal Sex Female 7:30 PM CDT Gender Identity Not on file Sexual Orientation Not on file documented as of this encounter Miscellaneous Notes * Cerner Conversion Note - Historical ProviderMD - 12/20/2018 12:01 PM MIDDLE SCHOOL FOOTBALL COACH Spiritual Care Assessment Entered On: 12/20/2018 13:37 EST Performed On: 12/20/2018 13:13 EST by ARTHUR HONEYCUTT General Information Initial Visit : Yes Referred by : Patient Referral Reason Comment : Advance directive Ministry Provided to : Patient, Family/Significant other Islam Preference : Protestant ARTHUR HONEYCUTT - 12/20/2018 13:35 EST Spiritual [...] supported, Feelings expressed, Information provided Spiritual and Islam : Spiritual/Islam support provided Change, Adjustment and Loss : Provided support for current loss/grief ARTHUR HONEYCUTT P - 12/20/2018 13:35 EST Electronically signed by [facility], [facility] Conversion Underground Mine Machinery Mechanic Cerner at 02/04/2023 2:01 PM CDT documented in this encounter Plan of Treatment Not on file documented as of this encounter Visit Diagnoses Not on filedocumented in this encounter Care Teams Bushel Girl Relationship Specialty Start Date End Date Jay Howell MD [address] [place] [phone] PCP - General Emergency Medicine 11/12/23 documented as of this encounter
--- OUTSIDE RECORDS SUMMARY | 2025-08-07 08:51 | XMS_ITS | Encounter Summary ---
Author Organization [employer] ([place], [place], [place], [place]) Address [address] [place] [address] Care Team Providers Care Master Sonar Technician Name Role Phone Jay Howell MD Primary Care Provider [phone] Encounter Details Date Type Department Care Team (Late st Contact Info) Description 08/29/2020 Transcribed Document [facility] [place] Family Medicine [facility] [place] [address] ProviderJessie MD [address] [place] [address] Social History Tobacco Use Types Packs/Day Years Used Date Smoking Tobacco: Never Assessed Comments Unknown Sex and Gender Information Value Date Recorded Sex Assigned at Not on file Legal Sex Female 7:30 PM CDT Gender Identity Not on file Sexual Orientation Not on file documented as of this encounter Miscellaneous Notes * Cerner Conversion Note - Jessie Yuen MD - 08/29/2020 2:44 PM BREASTFEEDING EDUCATOR Final Discharge Planning Entered On: 08/29/2020 14:44 EST Performed On: 08/29/2020 14:44 EST by KAVITA PELLETIER RN-Neck Band Operator Final Discharge Planning Discharge Arrangements : Patient Post-Acute Information Patient Name: SKYLER MONTOYA Gender: Female : [birth year] Age: 79 Years No Post-Acute Placement(s) Listed No Post-Acute Service(s) Listed No Curaspan Referral(s) Listed Patient Offered Choice/Affiliations Explained : Yes Important Medicare Message Reviewed With : Patient Important Medicare Message Reviewed D/T : 08/29/2020 9:00 EST KAVITA PELLETIER RN-Neck Band Operator - 08/29/2020 14:44 EST Electronically signed by Interface, [facility] Conversion Cardiovascular Invasive Specialist Cerner at 02/04/2023 1:55 PM CDT documented in this encounter Plan of Treatment Not on file documented as of this encounter Visit Diagnoses Not on filedocumented in this encounter Care Teams Master Sonar Technician Relationship Specialty Start Date End Date Jay Howell MD [address] [place] [phone] PCP - General Emergency Medicine 11/12/23 documented as of this encounter
--- OUTSIDE RECORDS SUMMARY | 2025-08-07 08:51 | XMS_ITS | Encounter Summary ---
Author Organization [employer] ([place], [place], [place], [place]) Address [address] [place] [address] Care Team Providers Care Service Team Leader Name Role Phone Jay Howell MD Primary Care Provider [phone] Encounter Details Date Type Department Care Team (Late st Contact Info) Description 12/14/2018 Transcribed Document [facility] [place] [address] [place] [address] ProviderJessie MD [address] [place], [place] [address] Social History Tobacco Use Types Packs/Day Years Used Date Smoking Tobacco: Never Assessed Comments Unknown Sex and Gender Information Value Date Recorded Sex Assigned at Not on file Legal Sex Female 7:30 PM CDT Gender Identity Not on file Sexual Orientation Not on file documented as of this encounter Miscellaneous Notes * Cerner Conversion Note - Historical ProviderMD - 12/14/2018 4:49 PM MURAL PAINTER CR Chest 2 Vws Ordered: 12/12/2018 Auth (Verified) Reason for Exam: cp 12/13/2018 11:39 12/14/2018 16:49 (LESTER PILLAI PA) Reviewed by Provider, No further action required X1 12/14/2018 16:47 (FLORENTIN CAMARGO) No further action required Electronically signed by Sivan [facility] Conversion Railroad Signal Technician Cerner at 02/04/2023 2:04 PM CDT documented in this encounter Plan of Treatment Not on file documented as of this encounter Visit Diagnoses Not on filedocumented in this encounter Care Teams Service Team Leader Relationship Specialty Start Date End Date Jay Howell MD [address] [place] [phone] PCP - General Emergency Medicine 11/12/23 documented as of this encounter
--- OUTSIDE RECORDS SUMMARY | 2025-08-07 08:51 | XMS_ITS | Encounter Summary ---
Author Organization [employer] ([place], [place], [place], [place]) Address [address] [place] [address] Care Team Providers Care Steward/Stewardess Club Car Name Role Phone Jay Howell MD Primary Care Provider [phone] Encounter Details Date Type Department Care Team (Late st Contact Info) Description 12/14/2018 Transcribed Document [facility] [place] [address] [place] [address] ProviderJessie MD [address] [place], [place] [address] Social History Tobacco Use Types Packs/Day Years Used Date Smoking Tobacco: Never Assessed Comments Unknown Sex and Gender Information Value Date Recorded Sex Assigned at Not on file Legal Sex Female 7:30 PM CDT Gender Identity Not on file Sexual Orientation Not on file documented as of this encounter Miscellaneous Notes * Cerner Conversion Note - Historical ProviderMD - 12/14/2018 4:47 PM MULTIMEDIA EDITOR CR Chest 2 Vws Ordered: 12/12/2018 Auth (Verified) Reason for Exam: cp 12/13/2018 11:39 12/14/2018 16:47 (FLORENTIN CAMARGO) No further action required documented in this encounter Plan of Treatment Not on file documented as of this encounter Visit Diagnoses Not on filedocumented in this encounter Care Teams Steward/Stewardess Club Car Relationship Specialty Start Date End Date Jay Howell MD [address] [place] [phone] PCP - General Emergency Medicine 11/12/23 documented as of this encounter
--- OUTSIDE RECORDS SUMMARY | 2025-08-07 08:51 | XMS_ITS | Clinical Summary ---
Author Organization [employer] ([place], [place], [place], [place]) Address [address] [place] [address] Care Team Providers Care Ammunition Officer Name Role Phone Jay Howell MD [...] Date Kennedy rded Speak language other than Panamanian at home Not on file 10/30/2023 Want [...] history exists Insurance MEDICARE PART [place] [address] [place] [address] [place] [id number] Advance Directives For more information, please contact: [phone] * Full Code (Latest Code Status on File) Date Activated Date Inactivated Comments 11/25/2022 10:41 AM 11/26/2022 5:33 PM * Full Code Date Activated Date Inactivated Comments 11/25/2022 8:11 AM 11/25/2022 10:41 AM -Attempt Resu scitation if person has no pulse and is not breathing. -If no pulse or not breathing attempt CPR/CODE. -Call Rapid Response if patient is in distress. Care Teams Ammunition Officer Relationship Specialty Start Date End Date Jay Howell MD [address] [place] [phone] PCP - General Emergency Medicine 11/12/23
--- OUTSIDE RECORDS SUMMARY | 2025-08-07 08:51 | XMS_ITS | Encounter Summary ---
Author Organization [employer] ([place], [place], [place], [place]) Address [address] [place] [address] Care Team Providers Care Clinical Researcher Name Role Phone Jay Howell MD Primary Care Provider [phone] Encounter Details Date Type Department Care Team (Late st Contact Info) Description 08/29/2020 Transcribed Document [facility] [place] Family Medicine [address] [place] [address] ProviderJessie MD [address] [place] [address] Social History Tobacco Use Types Packs/Day Years Used Date Smoking Tobacco: Never Assessed Comments Unknown Sex and Gender Information Value Date Recorded Sex Assigned at Not on file Legal Sex Female 7:30 PM CDT Gender Identity Not on file Sexual Orientation Not on file documented as of this encounter Miscellaneous Notes * Cerner Conversion Note - Jessie Yuen MD - 08/29/2020 8:24 AM NET TECHNICAL ARCHITECT Patient: SKYLER MONTOYA Age: 79 years Sex: Female : 1940 Associated Diagnoses: None Author: SLICK [facility], [facility] Ms. Montoya is 79 yo female admitted [...] filedocumented in this encounter Care Teams Clinical Researcher Relationship Specialty Start Date End Date Jay Howell MD [address] [place] [phone] PCP - General Emergency Medicine 11/12/23 documented as of this encounter
--- OUTSIDE RECORDS SUMMARY | 2025-08-07 08:51 | XMS_ITS | Encounter Summary ---
Author Organization [employer] ([place], [place], [place], [place]) Address [address] [place] [address] Care Team Providers Care Showplace Manager Name Role Phone Jay Howell MD Primary Care Provider [phone] Encounter Details Date Type Department Care Team (Late st Contact Info) Description 12/20/2018 Transcribed Document [facility] [place] [address] [place] [address] ProviderJessie MD [address] [place] [address] Social History Tobacco Use Types Packs/Day Years Used Date Smoking Tobacco: Never Assessed Comments Unknown Sex and Gender Information Value Date Recorded Sex Assigned at Not on file Legal Sex Female 7:30 PM CDT Gender Identity Not on file Sexual Orientation Not on file documented as of this encounter Miscellaneous Notes * Cerner Conversion Note - Historical ProviderMD - 12/20/2018 9:55 PM FORMULATION SCIENTIST Pain Assessment Entered On: 12/21/2018 4:53 EST [...] on filedocumented in this encounter Care Teams Showplace Manager Relationship Specialty Start Date End Date Jay Howell MD [address] [place] [phone] PCP - General Emergency Medicine 11/12/23 documented as of this encounter
--- OUTSIDE RECORDS SUMMARY | 2025-08-07 08:51 | XMS_ITS | Encounter Summary ---
Author Organization [employer] ([place], [place], [place], [place]) Address [address] [place] [address] Care Team Providers Care Door Serviceman Name Role Phone Jay Howell MD Primary Care Provider [phone] Encounter Details Date Type Department Care Team (Late st Contact Info) Description 12/20/2018 Transcribed Document [facility] [place] [address] [place] [address] ProviderJessie MD [address] [place] [address] Social History Tobacco Use Types Packs/Day Years Used Date Smoking Tobacco: Never Assessed Comments Unknown Sex and Gender Information Value Date Recorded Sex Assigned at Not on file Legal Sex Female 7:30 PM CDT Gender Identity Not on file Sexual Orientation Not on file documented as of this encounter Miscellaneous Notes * Cerner Conversion Note - Historical ProviderMD - 12/20/2018 12:01 PM RECRUITER COORDINATOR Care Management Assessment/Plan Entered On: 12/21/2018 9:37 [...] filedocumented in this encounter Care Teams Door Serviceman Relationship Specialty Start Date End Date Jay Howell MD [address] [place] [phone] PCP - General Emergency Medicine 11/12/23 documented as of this encounter
--- OUTSIDE RECORDS SUMMARY | 2025-08-07 08:51 | XMS_ITS | Encounter Summary ---
Author Organization [employer] ([place], [place], [place], [place]) Address [address] [place] [address] Care Team Providers Care Casing Puller Name Role Phone Jay Howell MD Primary Care Provider [phone] Encounter Details Date Type Department Care Team (Late st Contact Info) Description 08/29/2020 Transcribed Document [facility] [place] [address] [place] [address] ProviderJessie MD [address] [place] [address] Social History Tobacco Use Types Packs/Day Years Used Date Smoking Tobacco: Never Assessed Comments Unknown Sex and Gender Information Value Date Recorded Sex Assigned at Not on file Legal Sex Female 7:30 PM CDT Gender Identity Not on file Sexual Orientation Not on file documented as of this encounter Miscellaneous Notes * Cerner Conversion Note - Historical ProviderMD - 08/29/2020 1:02 PM SUPPLY CHAIN DESIGN MANAGER Patient: SKYLER MONTOYA Age: 79 years [...] level of muscle per surgery *Operation RIGHT PATTERN RULER access - ultrasound guided Aortogram with LEFT lower extremity run-off LEFT PT angioplasty (2.5-9x270zn Nanocross) LEFT peroneal angioplasty (2.5-0j336dm Nanocross) RIGHT PATTERN RULER closure (Angioseal) LEFT leg debridement 08/29/20 doing [...] Level 0.70 mg/dL 08/29/2020 02:04 Bun/Creatinine 22.9 [place] 08/29/2020 02:04 eGFR >60 mL/min/1.73m2 08/29/2020 02:04 eGFR NonAfrican >60 mL/min/1.73m2 08/29/2020 02:04 Bun/Creatinine 22.9 [place] 08/29/2020 07:33 Sodium Level 138 mmol/L 08/29/2020 02:04 Potassium Level 3.3 mmol/L LOW 08/29/2020 02:04 Chloride Level 108 mmol/L 08/29/2020 02:04 Carbon Dioxide Level 23 mmol/L 08/29/2020 02:04 Anion Gap 10 08/29/2020 02:04 Blood Urea Nitrogen 16 mg/dL 08/29/2020 02:04 Glucose Level 108 mg/dL [place] 08/29/2020 02:04 Calcium Level 9.1 mg/dL 08/29/2020 02:04 MICRO: ACC: [id number] ORDER: Culture Wound and Stain DATE: 08/26/2020 15:23 SOURCE: Surgical Swab SITE: Leg Lower L Reports Final 08/29/2020 08:29 No growth Pre 08/27/2020 07:14 No growth GS 08/26/2020 18:13 Few White Blood Cells No organisms seen. == ACC: [id number] ORDER: Culture Wound and Stain DATE: 08/25/2020 05:00 SOURCE: Wound SITE: Leg Lower L Reports Final 08/28/2020 08:57 No growth Pre 08/26/2020 06:23 No growth GS 08/25/2020 07:26 No organisms seen. Few White Blood Cells Rare epithelial cells == ACC: [id number] ORDER: Culture AFB and Stain DATE: 08/26/2020 13:56 SOURCE: Surgical Swab SITE: Leg Lower L Reports AFS 08/27/2020 13:07 No Acid Fast Bacilli seen == ACC: [id number] ORDER: Culture Anaerobic DATE: 08/26/2020 13:56 SOURCE: Surgical Swab SITE: Leg Lower L Reports Pre 08/28/2020 07:01 No Anaerobic growth Pre 08/27/2020 07:47 Culture in progress == ACC: [id number] ORDER: Culture Fungus DATE: 08/26/2020 13:56 SOURCE: Surgical Swab SITE: Leg Lower L Reports SINDI 08/26/2020 16:09 No Fungal elements seen == ACC: [id number] ORDER: Culture Blood DATE: 08/25/2020 05:01 SOURCE: Blood SITE: Reports Pre 08/29/2020 06:01 No growth at 4 days. Pre 08/28/2020 06:01 No growth at 3 days. Pre 08/27/2020 06:01 No growth at 2 days. Pre 08/26/2020 06:01 No growth at 1 day. Pre 08/25/2020 23:02 Culture less than 24 Hrs old == ACC: [id number] ORDER: Culture Blood DATE: 08/25/2020 05:01 SOURCE: Blood SITE: Reports Pre 08/29/2020 06:02 No growth at 4 days. Pre 08/28/2020 06:01 No growth at 3 days. Pre 08/27/2020 06:01 No growth at 2 days. Pre 08/26/2020 06:01 No growth at 1 day. Pre 08/25/2020 23:02 Culture less than 24 Hrs old == Radiology Results (Last 48 hours) [id number] -- 08/25/2020 05:53 CT Abdomen WO W [...] closely after discharge Electronically signed by Sivan, [facility] Conversion Elementary Esl Teacher Cerner at 02/04/2023 1:55 PM CDT documented in this encounter Plan of Treatment Not on file documented as of this encounter Visit Diagnoses Not on filedocumented in this encounter Care Teams Casing Puller Relationship Specialty Start Date End Date Jay Howell MD [address] [place] [phone] PCP - General Emergency Medicine 11/12/23 documented as of this encounter
--- OUTSIDE RECORDS SUMMARY | 2025-08-07 08:51 | XMS_ITS | Encounter Summary ---
Author Organization [employer] ([place], [place], [place], [place]) Address [address] [place] [address] Care Team Providers Care Turbine Mechanic Name Role Phone Jay Howell MD Primary Care Provider [phone] Encounter Details Date Type Department Care Team (Late st Contact Info) Description 08/29/2020 Transcribed Document [facility] [place] [address] [place] [address] ProviderJessie MD [address] [place] [address] Social History Tobacco Use Types Packs/Day Years Used Date Smoking Tobacco: Never Assessed Comments Unknown Sex and Gender Information Value Date Recorded Sex Assigned at Not on file Legal Sex Female 7:30 PM CDT Gender Identity Not on file Sexual Orientation Not on file documented as of this encounter Miscellaneous Notes * Cerner Conversion Note - Jessie ProviderMD - 08/29/2020 2:00 AM CASSANDRA CONSULTANT School Resource Officer Details Entered On: 08/29/2020 6:08 EST Performed [...] 08/29/2020 6:07 EST Electronically signed by Sivan [facility] Conversion Carbon Printer Cerner at 02/04/2023 1:58 PM CDT documented in this encounter Plan of Treatment Not on file documented as of this encounter Visit Diagnoses Not on filedocumented in this encounter Care Teams Turbine Mechanic Relationship Specialty Start Date End Date Jay Howell MD [address] [place] [phone] PCP - General Emergency Medicine 11/12/23 documented as of this encounter
--- OUTSIDE RECORDS SUMMARY | 2025-08-07 08:51 | XMS_ITS | Encounter Summary ---
Author Organization [employer] ([place], [place], [place], [place]) Address [address] [place] [address] Care Team Providers Care School Librarian Name Role Phone Jay Howell MD Primary Care Provider [phone] Encounter Details Date Type Department Care Team (Late st Contact Info) Description 12/20/2018 Transcribed Document [facility] [place] [address] [place] [address] ProviderJessie MD [address] [place] [address] Social History Tobacco Use Types Packs/Day Years Used Date Smoking Tobacco: Never Assessed Comments Unknown Sex and Gender Information Value Date Recorded Sex Assigned at Not on file Legal Sex Female 7:30 PM CDT Gender Identity Not on file Sexual Orientation Not on file documented as of this encounter Miscellaneous Notes * Cerner Conversion Note - Historical ProviderMD - 12/20/2018 11:57 AM INTERIOR ASSEMBLIES INSTALLER Pre Procedure Adult Entered On: 12/20/2018 12:01 EST Performed On: 12/20/2018 11:57 EST by VANCE BELTRAN RN Height and Weight, Clinical Dosing Height Source : Stated Height Entry Format : [place] Height, Feet : 5 ft(Converted to: 152 cm, 60 Inch) Height, Inches : 3 Inch(Converted to: 0 ft 3 Inch, 7.62 cm) Clinical Height : 160.02 cm Weight Source : Standing scale Weight Entry Format : [place] Clinical Dosing Weight : 71.82 kg Weight, Pounds : 158 lb Body Surface Area (BSA) : 1.75 m2 Body Mass Index : 28 kg/m2 ([place]) [place] Body Weight : 52 kg VANCE BELTRAN [...] Info Preferred Name : ilsa Support Person/Patient Lining Cementer : Deanna Support Person/Pt Rep Name : Willard Contact Password : Marvin Support Person/Pt Rep Contact Information : [phone] Want Family/Rep/Phys Notified of Admit : No [...] Scale Risk Level : 0-24 Low Risk [place] Fall Interventions : Bed in low position, Call device within reach, Non-slip footwear, Wheels locked VANCE BELTRAN RN - 12/20/2018 11:57 EST Valuables and Belongings Valuables and Belongings : Clothing Clothing : Common streetwear Clothing Disposition : Bedside VANCE BELTRAN RN - 12/20/2018 11:57 EST Electronically signed by Sivan [facility] Conversion Project Structural Engineer Cerner at 02/04/2023 2:07 PM CDT documented in this encounter Plan of Treatment Not on file documented as of this encounter Visit Diagnoses Not on filedocumented in this encounter Care Teams School Librarian Relationship Specialty Start Date End Date Jay Howell MD [address] [place] [phone] PCP - General Emergency Medicine 11/12/23 documented as of this encounter
--- OUTSIDE RECORDS SUMMARY | 2025-08-07 08:51 | XMS_ITS | Encounter Summary ---
Author Organization [employer] ([place], [place], [place], [place]) Address [address] [place] [address] Care Team Providers Care Hull Outfit Supervisor Name Role Phone Jay Howell MD Primary Care Provider [phone] Encounter Details Date Type Department Care Team (Late st Contact Info) Description 12/20/2018 Transcribed Document [facility] [place] [address] [place] [address] ProviderJessie MD [address] [place] [address] Social History Tobacco Use Types Packs/Day Years Used Date Smoking Tobacco: Never Assessed Comments Unknown Sex and Gender Information Value Date Recorded Sex Assigned at Not on file Legal Sex Female 7:30 PM CDT Gender Identity Not on file Sexual Orientation Not on file documented as of this encounter Miscellaneous Notes * Cerner Conversion Note - Historical ProviderMD - 12/20/2018 1:13 PM EXTRUSION DIE COORDINATOR Advance Directive Entered On: 12/20/2018 13:35 EST Performed On: 12/20/2018 13:13 EST by ARTHUR HONEYCUTT Advance Directive Patient has Advance Directive *Q : No, patient requests assist formulating Advance Directive Patient Given Information about AD : Yes Advance Directive Comment : Provided advance directive info. ARTHUR HONEYCUTT - 12/20/2018 13:35 EST Electronically signed by Sivan [facility] Conversion Automotive Electrician Helper Cerner at 02/04/2023 1:55 PM CDT documented in this encounter Plan of Treatment Not on file documented as of this encounter Visit Diagnoses Not on filedocumented in this encounter Care Teams Hull Outfit Supervisor Relationship Specialty Start Date End Date Jay Howell MD [address] [place] [phone] PCP - General Emergency Medicine 11/12/23 documented as of this encounter
--- OUTSIDE RECORDS SUMMARY | 2025-08-07 08:51 | XMS_ITS | Encounter Summary ---
Author Organization [employer] ([place], [place], [place], [place]) Address [address] [place] [address] Care Team Providers Care Construction Pit Worker Name Role Phone Jay Howell MD Primary Care Provider [phone] Encounter Details Date Type Department Care Team (Late st Contact Info) Description 12/20/2018 Transcribed Document [facility] [place] [address] [place] [address] ProviderJessie MD [address] [place] [address] Social History Tobacco Use Types Packs/Day Years Used Date Smoking Tobacco: Never Assessed Comments Unknown Sex and Gender Information Value Date Recorded Sex Assigned at Not on file Legal Sex Female 7:30 PM CDT Gender Identity Not on file Sexual Orientation Not on file documented as of this encounter Miscellaneous Notes * Cerner Conversion Note - Historical ProviderMD - 12/20/2018 3:20 PM WALLPAPER HANGER DATE OF PROCEDURE: LEFT HEART CATHETERIZATION, GRAFT ANGIOGRAPHY, ILIAC ARTERY ANGIOGRAPHY, PERCUTANEOUS INTERVENTION REPORT INDICATION: Lifestyle limiting exertional angina. REFERRING PHYSICIAN: Dr. Adry Dumas and Dr. Avtar Moeller. PROCEDURE: Standard left heart catheterization. TECHNIQUE: A 5/6-Khmer sheath placed in the right femoral artery. Right iliac artery angiography was performed using a JR4 diagnostic catheter due to difficulty in advancing safety J-wire across the proximal right common iliac artery. Angiography revealed patent iliac artery with a kink proximally. There is no pressure gradient across the kink. The short 6-Khmer sheath was switched out for a 25 cm 6-Khmer Arrow sheath with the sheath tip into the abdominal aorta for angiography and percutaneous intervention. JL4, JR4 diagnostic catheters were used for selective angiography of the nikolai vessels. JR4 diagnostic catheter was used for selective angiography of the bypass grafts. A 6-Khmer pigtail catheter was advanced in the left [...] additional 162 mg of aspirin in the woodworking shop laborer. She was given Aggrastat bolus. Patient received intracoronary nitroglycerin to optimize coronary vessel sizing. Wood Pacheco M.D. Dict: 12/20/2018 15:20:17 Trans: 12/20/2018 18:55:03 CC1: Wood Pacheco M.D. CC2: Dr. Adry Dumas CC3: Dr. Avtar Moeller documented in this encounter Plan of Treatment Not on file documented as of this encounter Visit Diagnoses Not on filedocumented in this encounter Care Teams Construction Pit Worker Relationship Specialty Start Date End Date Jay Howell MD [address] [place] [phone] PCP - General Emergency Medicine 11/12/23 documented as of this encounter
--- OUTSIDE RECORDS SUMMARY | 2025-08-07 08:51 | XMS_ITS | Encounter Summary ---
Author Organization [employer] ([place], [place], [place], [place]) Address [address] [place] [address] Care Team Providers Care Road Marker Name Role Phone Jay Howell MD Primary Care Provider [phone] Encounter Details Date Type Department Care Team (Late st Contact Info) Description 08/29/2020 Transcribed Document [facility] Family Medicine [address] [place] [address] ProviderJessie MD [address] [place] [address] Social History Tobacco Use Types Packs/Day Years Used Date Smoking Tobacco: Never Assessed Comments Unknown Sex and Gender Information Value Date Recorded Sex Assigned at Not on file Legal Sex Female 7:30 PM CDT Gender Identity Not on file Sexual Orientation Not on file documented as of this encounter Miscellaneous Notes * Cerner Conversion Note - Jessie Yuen MD - 08/29/2020 2:41 PM JEWEL HOLE ROUGH OPENER On Going Discharge Planning Entered On: 08/29/2020 14:44 EST Performed On: 08/29/2020 14:41 EST by KAVITA PELLETIER RN-Food Processing Plant ManagerSupport Team Member Progress Note Discharge Arrangements : Patient Post-Acute [...] Medical Necessity : Yes KAVITA PELLETIER RN-Food Processing Plant Manager - 08/29/2020 14:41 EST Narrative Progress Note Narrative Progress Note : No DC today--INR-1.5. Hep gtt started to bridge Coumadin. NPWT for home obtained from [facility] and has been delivered to pt's room. [...] will obtain prior to dc. List of BATTER MIXER HELPER's for [place] given to pt. She will choose and inform CM. Coumadin restarted today. CM will continue to follow. KAVITA PELLETIER RN-Food Processing Plant Manager - 08/28/20 15:37:20 Pt is s/p LLE [...] past after her SIM[facility] and went to [facility] prior to home with HH. She is agreeable to look at list of BATTER MIXER HELPER to make an informed decision based on quality and resource use information. Cx's are pending to determine need for IV abx at home. Likely dc in a few days. CM will continue to follow. KAVITA PELLETIER RN-Food Processing Plant Manager - 08/27/20 15:14:36 KAVITA PELLETIER RN-Food Processing Plant Manager - 08/29/2020 14:41 EST Electronically signed by Sivan [facility] Conversion Roller Die Cutting Machine Operator Cerner at 02/04/2023 2:06 PM CDT documented in this encounter Plan of Treatment Not on file documented as of this encounter Visit Diagnoses Not on filedocumented in this encounter Care Teams Road Marker Relationship Specialty Start Date End Date Jay Howell MD [address] [place] [phone] PCP - General Emergency Medicine 11/12/23 documented as of this encounter
--- OUTSIDE RECORDS SUMMARY | 2025-08-07 08:52 | XMS_ITS | Encounter Summary ---
Author Organization [employer] ([place], [place], [place], [place]) Address [address] [place] [address] Care Team Providers Care Specialist Physicians Name Role Phone Jay Howell MD Primary Care Provider [phone] Encounter Details Date Type Department Care Team (Late st Contact Info) Description 09/01/[address] [facility] [place] [address] [place] [address] ProviderJessie MD [address] [place] [address] Social History Tobacco Use Types [...] Jessie Yuen MD - 09/01/2020 2:22 PM FURNITURE REMOVALIST [facility] [place] [id number] SKYLER MONTOYA :1940 Visit Time:08/25/2020 Your Visit [...] next 5 days. NEW RX Provided. STOP [place] 7.5/325 mg tablets --- NEW RX Provided for 5/325 mg tablets --- Take one or the other - Do not take both. Discharge Activity: Discharge Activity: No heavy lifting over 10 lbs, Avoid Strenuous Activity Until: for 1 week Follow-Up Appointments Follow Up with KAELA VERDE When 09/29/2020 12:30 PM EST Comments F/u w/ FERNIE Where: [place] [address] [place] [phone]- Business (1) Follow Up with KAELA VERDE When 09/08/2020 12:45 PM EST Comments F/u [facility] with Irina Troy PA-C Where: [facility] [address] [place] [address]- Business (1) Follow Up with TARA CHEN When 09/05/2020 12:20 PM EST Comments needs INR check///We have held your Aspirin per vascular surgeon, Dr. Verde///Appointment has been made Where: [address] [phone]- Business (1) Follow Up with KAVITHA HIDALGO When 09/03/2020 02:30 PM EST Comments Appointment has been made Where: [address] [place] [address]- Business (1) Medications What How Much When Instructions Next Dose amoxicillin-clavulanate (amoxicillin-clavulanate 875 mg-125 mg oral tablet) 1 Tablet(s) Oral Every 12 hours Duration: 3 Day(s) Pickup at [facility] [place] Tuesday09/01/2020 9:00 PM clopidogrel (Plavix 75 mg oral tablet) 1 Tablet(s) Oral Every Day Pickup at [facility] [place] Tuesday09/02/2020 9:00 AM doxycycline (Vibramycin 100 mg oral capsule) 1 Capsule(s) Oral Two Times A Day Duration: 3 Day(s) Pickup at [facility] Tuesday09/01/2020 9:00 PM enoxaparin (Lovenox 80 mg/ 0.8 mL injectable solution) 70 Milligram(s) SubCutaneous Every 12 hours Duration: 5 Day(s) Pickup at [facility] [place] Tuesday09/01/2020 9:00 PM lactobacillus acidophilus (lactobacillus acidophilus oral tablet) 2 Tablet(s) Oral Every Day Duration: 28 Day(s) Pickup at [facility] Tuesday09/02/2020 9:00 AM terbinafine (terbinafine 250 mg oral tablet) 1 Tablet(s) Oral Every Day Duration: 6 weeks Pickup at [facility] [place] 09/02/2020 9:00 AM ALPRAZolam (Xanax 0.5 mg oral tablet) 1 Tablet(s) Oral At Bedtime as needed for for anxiety/sleep acetaminophen-hydrocodone ([place] 5 mg-325 mg oral tablet) 1 Tablet(s) Oral Every 4 Hours as needed for for pain NEW DOSE. New RX Provided. amLODIPine (Norvasc 10 mg oral tablet) 1 Tablet(s) Oral Every Day Pickup at [facility] [place] Tuesday09/02/2020 9:00 AM atorvastatin (atorvastatin 80 mg oral tablet) 1 Tablet(s) Oral At Bedtime Pickup at [facility] [place] Tuesday09/01/2020 9:00 PM carvedilol (carvedilol 6.25 mg oral tablet) 1 Tablet(s) Oral Three Times A Day Tuesday09/01/2020 4:00 PM dorzolamide ophthalmic (dorzolamide 2% ophthalmic solution) 1 Drop(s) Eye Right Two Times A Day Tuesday09/01/2020 9:00 PM hydrALAZINE (hydrALAZINE 100 mg oral tablet) 1 Tablet(s) Oral Two Times A Day NEW DOSE Pickup at [facility] Tuesday09/01/2020 9:00 PM warfarin (Coumadin 3 mg oral tablet) 1 Tablet(s) Oral Every Day Duration: 5 Day(s) NEW DOSE x the next 5 days. INR will be checked in 2 days. Pickup at [facility] Tuesday09/02/2020 9:00 AM losartan (losartan 100 [...] A Day Tuesday09/01/2020 9:00 PM Pharmacy Information [facility]: [address] [facility] [address] [place], [place] [id number] [phone] Take your medications faithfully. Do NOT skip [...] bag. ??? Soap and water, or hand university manager. ??? Wound cleanser or salt-water solution [...] and water are not available, use hand university manager. 3. Set up a clean station [...] and water are not available, use hand university manager. Clean your wound ??? Wear gloves, [...] and water are not available, use hand university manager. Apply new dressing ??? Wear gloves, [...] and water are not available, use hand university manager. 8. Turn the pump back on. The sponge dressing should collapse. Do not change the settings on the machine without talking to a health care provider. 9. Replace the container in the pump that collects fluid if it is full. Replace the container per the polishing machine operator helper's instructions or at least once a week, [...] clamps are open. ??? Do not use uekg-vad-lwoyudb medicated or antiseptic creams, sprays, liquids, or [...] 12/25/2012 Document Revised: 01/25/2020 Document Reviewed: 12/21/2019 [employer]Me Patient Education ?? 2020 [employer]. Cellulitis, Adult Cellulitis is a skin [...] these instructions at home: Medicines ??? Take phjg-eox-vpcxjmx and prescription medicines only as told by [...] 03/21/2009 Document Revised: 02/22/2019 Document Reviewed: 02/22/2019 [employer]Me Patient Education ?? 2020 [employer]. What You Need to Know About [...] other medicines or supplements? Many prescription and qxek-oxy-wfziulr medicines can interfere with warfarin. Talk with your health care provider or your pharmacist before starting or stopping any new medicines. This includes zjdh-pdi-jpstdqe vitamins, dietary supplements, herbal medicines, and pain medicines. Your warfarin dosage may need to be adjusted. ??? Some common nsns-myi-kzdgqhy medicines that may increase the risk of [...] that you work with a diet and public health nutritionist (dietitian). ??? Vitamin K decreases the effect [...] ??? Noodles, eggs, and spinach, enriched. ??? [place] sprouts, raw or cooked. ??? Beet greens, [...] diet. ??? You start or stop any qemm-nyw-bwjpfpu medicine, prescription medicine, or dietary supplement. ??? [...] Document Revised: 05/16/2018 Document Reviewed: 12/29/2016 [employer] Patient Education ?? 2020 [employer]. Hematoma A hematoma is a collection of [...] health care provider. General instructions ??? Take bqdd-jbl-lvtrdgc and prescription medicines only as told by [...] Assistance with quitting is available by contacting 6-632-YMBZ-NOW. This is a free resource providing counseling, support, and referral. Or you may contact your personal physician. [place] reQRdos Suicide Prevention Lifeline: The National Suicide Prevention [...] range between ( 0.0 and 7.0 ) [place] #: 0.64 K/uL -- Normal range between ( 0.16 and 1.00 ) [place] #: 0.11 x10(3)/uL -- Normal range between ( 0.00 and 0.80 ) [place] %: 10.7 % -- Normal range between [...] was given the opportunity to ask questions. Patient/Automatic Print Developer Name: Patient/Automatic Print Developer Signature: Relationship to Patient: Clinician/Hospital Automatic Print Developer Signature: Date: documented in this encounter Plan of Treatment Not on file documented as of this encounter Visit Diagnoses Not on filedocumented in this encounter Care Teams Specialist Physicians Relationship Specialty Start Date End Date Jay Howell MD [address] [place] [phone] PCP - General Emergency Medicine 11/12/23 documented as of this encounter
--- OUTSIDE RECORDS SUMMARY | 2025-08-07 08:52 | XMS_ITS | Encounter Summary ---
Author Organization [employer] ([place], [place], [place], [place]) Address [address] [place] [address] Care Team Providers Care Solar Thermal Installer Name Role Phone Jay Howell MD Primary Care Provider [phone] Encounter Details Date Type Department Care Team (Late st Contact Info) Description 08/31/2020 Transcribed Document [facility] [place] [address] [place] [address] ProviderJessie MD [address] [place] [address] Social History Tobacco Use Types Packs/Day Years Used Date Smoking Tobacco: Never Assessed Comments Unknown Sex and Gender Information Value Date Recorded Sex Assigned at Not on file Legal Sex Female 7:30 PM CDT Gender Identity Not on file Sexual Orientation Not on file documented as of this encounter Miscellaneous Notes * Cerner Conversion Note - Jessie Yuen MD - 08/31/2020 9:43 AM EARLY CHILDHOOD EDUCATION WORKER Patient: SKYLER MONTOYA Age: 79 years [...] mg, 6 mL, 112 mL/Hr, IV Piggyback, R41LYid DuoNeb 0.5 mg-2.5 mg/3 mL inhalation solution: [...] Tab, Oral, Daily, 30 Tab, 0 Refill(s) [place] 7.5 mg-325 mg oral tablet: 1 Tab, [...] mL 300 mg 6 mL, IV Piggyback, G13KJqf dorzolamide 2% ophth soln 10 mL 1 [...] Confirmed Coronary artery disease / SNOMED CT 9421083345 / Confirmed Stented coronary artery / SNOMED CT 1914409573 / Confirmed High blood pressure / SNOMED CT 81646270 / Confirmed Hyperlipidemia / SNOMED CT 47655795 / Confirmed COPD / SNOMED CT 31077688 / Confirmed GERD - Gastro-esophageal reflux disease / SNOMED CT 3128046377 / Confirmed Multiple renal cysts / SNOMED CT 960668895 / Confirmed Arthritis / SNOMED CT 5708632 / Confirmed Diabetes mellitus / SNOMED CT 039562525 / Confirmed Emphysema / SNOMED CT 037008058 / Confirmed Apnea, sleep / SNOMED CT 251525690 / Confirmed Hx of pulmonary embolus / SNOMED CT 691484665 / Confirmed Chronic anticoagulation / SNOMED CT 957388302 / Confirmed Atrial fibrillation with RVR / SNOMED CT 3723306652 / Confirmed Chest pain / SNOMED CT 51075431 / Complaint of History of obstructive sleep apnea / IMO 76530841 / Confirmed Resolved: UTI - Urinary tract infection / SNOMED CT 6063297178 Canceled: History of obstructive sleep apnea / IMO 14657821, Active Problems (20) Apnea, sleep Arthritis Atrial [...] based on INR Electronically signed by Sivan [facility] Conversion Small Engine Specialist Cerner at 02/04/2023 2:09 PM CDT documented in this encounter Plan of Treatment Not on file documented as of this encounter Visit Diagnoses Not on filedocumented in this encounter Care Teams Solar Thermal Installer Relationship Specialty Start Date End Date Jay Howell MD [address] [place] [phone] PCP - General Emergency Medicine 11/12/23 documented as of this encounter
--- OUTSIDE RECORDS SUMMARY | 2025-08-07 08:52 | XMS_ITS | Encounter Summary ---
Author Organization [employer] ([place], [place], [place], [place]) Address [address] [place] [address] Care Team Providers Care Office Electrician Name Role Phone Jay Howell MD Primary Care Provider [phone] Encounter Details Date Type Department Care Team (Late st Contact Info) Description 09/01/2020 Transcribed Document [facility] [place] [address] [place] [address] ProviderJessie MD [address] [place] [address] Social History Tobacco Use Types Packs/Day Years Used Date Smoking Tobacco: Never Assessed Comments Unknown Sex and Gender Information Value Date Recorded Sex Assigned at Not on file Legal Sex Female 7:30 PM CDT Gender Identity Not on file Sexual Orientation Not on file documented as of this encounter Miscellaneous Notes * Cerner Conversion Note - Jessie Yuen MD - 09/01/2020 9:16 AM CLOTH SECONDS SORTER Patient: SKYLER MONTOYA Age: 79 years Sex: Female : 1940 Associated Diagnoses: None Author: Cheng Jennings, Montessori Program Director Cert Ms. Montoya is 79 yo female [...] RPh Electronically signed by Gayle Finnegan Conversion Television Newscast Director Cerner at 02/04/2023 2:20 PM CDT documented in this encounter Plan of Treatment Not on file documented as of this encounter Visit Diagnoses Not on filedocumented in this encounter Care Teams Office Electrician Relationship Specialty Start Date End Date Jay Howell MD [address] [place] [phone] PCP - General Emergency Medicine 11/12/23 documented as of this encounter
--- OUTSIDE RECORDS SUMMARY | 2025-08-07 08:52 | XMS_ITS | Encounter Summary ---
Author Organization [employer] ([place], [place], [place], [place]) Address [address] [place] [address] Care Team Providers Care Assistant Professor Of Biochemistry Name Role Phone Jay Howell MD Primary Care Provider [phone] Encounter Details Date Type Department Care Team (Late st Contact Info) Description 09/08/2020 Transcribed Document [facility] [place] [address] [place] [address] ProviderJessie MD [address] [place] [address] Social History Tobacco Use Types Packs/Day Years Used Date Smoking Tobacco: Never Assessed Comments Unknown Sex and Gender Information Value Date Recorded Sex Assigned at Not on file Legal Sex Female 7:30 PM CDT Gender Identity Not on file Sexual Orientation Not on file documented as of this encounter Miscellaneous Notes * Cerner Conversion Note - Jessie Yuen MD - 09/08/2020 5:[address]ASSENGER FIRER Patient: SKYLER MONTOYA Age: 79 Years Sex: Female : 1940 Reason for Consultation LEFT LE wound History of Present Illness Ms. Montoya is an 79 year-old female who presents to the [facility] for f/u after recent hospitalization. She has [...] lower extremity run-off - LEFT PT angioplasty ([id number] [employer]) - LEFT peroneal angioplasty (2.5-5h486vk [employer]) - LEFT leg debridement Other: - [...] No labs to review Electronically signed by [facility] Conversion Teaching Aide Cerner at 02/04/2023 1:55 PM CDT documented in this encounter Plan of Treatment Not on file documented as of this encounter Visit Diagnoses Not on filedocumented in this encounter Care Teams Assistant Professor Of Biochemistry Relationship Specialty Start Date End Date Jay Howell MD [address] [place] [phone] PCP - General Emergency Medicine 11/12/23 documented as of this encounter
--- OUTSIDE RECORDS SUMMARY | 2025-08-07 08:52 | XMS_ITS | Encounter Summary ---
Author Organization [employer] ([place], [place], [place], [place]) Address [address] [place] [address] Care Team Providers Care Daytime Caregiver Name Role Phone Jay Howell MD Primary Care Provider [phone] Encounter Details Date Type Department Care Team (Late st Contact Info) Description 09/08/2020 Transcribed Document [facility] [place] Family Medicine Formerly [facility] [address] ProviderJessie MD [address] [place] [address] Social History Tobacco Use Types Packs/Day Years Used Date Smoking Tobacco: Never Assessed Comments Unknown Sex and Gender Information Value Date Recorded Sex Assigned at Not on file Legal Sex Female 7:30 PM CDT Gender Identity Not on file Sexual Orientation Not on file documented as of this encounter Miscellaneous Notes * Cerner Conversion Note - Jessie Yuen MD - 09/08/2020 5:27 PM GUM ROLLING MACHINE TENDER Patient: SKYLER MONTOYA Age: 79 Years Sex: [...] on filedocumented in this encounter Care Teams Daytime Caregiver Relationship Specialty Start Date End Date Jay Howell MD [address] [place] [phone] PCP - General Emergency Medicine 11/12/23 documented as of this encounter
--- OUTSIDE RECORDS SUMMARY | 2025-08-07 08:52 | XMS_ITS | Encounter Summary ---
Author Organization [employer] ([place], [place], [place], [place]) Address [address] [place] [address] Care Team Providers Care Rehab Manager Name Role Phone Jay Howell MD Primary Care Provider [phone] Encounter Details Date Type Department Care Team (Late st Contact Info) Description 09/22/2020 Transcribed Document [facility] [place] [address] [place] [address] ProviderJessie MD [address] [place] [address] Social History Tobacco Use Types Packs/Day Years Used Date Smoking Tobacco: Never Assessed Comments Unknown Sex and Gender Information Value Date Recorded Sex Assigned at Not on file Legal Sex Female 7:30 PM CDT Gender Identity Not on file Sexual Orientation Not on file documented as of this encounter Miscellaneous Notes * Cerner Conversion Note - Historical ProviderMD - 09/22/2020 4:56 PM DISSOLVER OPERATOR Patient: SKYLER MONTOYA Age: 79 Years [...] present starting at the level of the HOSPICE PATIENT CARE SECRETARY. Non significant, non-flow restricting plaque noted at common femoral artery. 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 There is a significant (50-75%) stenosis of the distal HOSPICE PATIENT CARE SECRETARY. Non significant, non-flow restricting plaque noted at DPA. HOSPICE PATIENT CARE SECRETARY & DPA non compressible for FERNIE. TBI: Non compressible. LEFT: Abnormal arterial runoff disease present starting at the level of the HOSPICE PATIENT CARE SECRETARY. Non significant, non-flow restricting plaque noted at common femoral artery. There is a severe (>75%) stenosis of the distal HOSPICE PATIENT CARE SECRETARY. HOSPICE PATIENT CARE SECRETARY & DPA non compressible for FERNIE. TBI: Non compressible. Electronically signed by Gayle Finnegan Conversion Power Equipment Technology Instructor Cerner at 02/04/2023 2:07 PM CDT documented in this encounter Plan of Treatment Not on file documented as of this encounter Visit Diagnoses Not on filedocumented in this encounter Care Teams Rehab Manager Relationship Specialty Start Date End Date Jay Howell MD [address] [place] [phone] PCP - General Emergency Medicine 11/12/23 documented as of this encounter
--- OUTSIDE RECORDS SUMMARY | 2025-08-07 08:52 | XMS_ITS | Encounter Summary ---
Author Organization [employer] ([place], [place], [place], [place]) Address [address] [place] [address] Care Team Providers Care Hypo Dipper Name Role Phone Jay Howell MD Primary Care Provider [phone] Encounter Details Date Type Department Care Team (Late st Contact Info) Description 09/04/2020 Transcribed Document [facility] [place] Family Medicine [address] [place] [address] ProviderJessie MD [address] [place] [address] Social History Tobacco Use Types Packs/Day Years Used Date Smoking Tobacco: Never Assessed Comments Unknown Sex and Gender Information Value Date Recorded Sex Assigned at Not on file Legal Sex Female 7:30 PM CDT Gender Identity Not on file Sexual Orientation Not on file documented as of this encounter Miscellaneous Notes * Cerner Conversion Note - Jessie Yuen MD - 09/04/2020 2:10 AM RESEARCH SOFTWARE ENGINEER ED Discharge Entered On: 09/04/2020 4:14 EST [...] 09/04/2020 4:14 EST Electronically signed by Sivan, [facility] Conversion Control Room Tender Cerner at 02/04/2023 2:10 PM CDT documented in this encounter Plan of Treatment Not on file documented as of this encounter Visit Diagnoses Not on filedocumented in this encounter Care Teams Hypo Dipper Relationship Specialty Start Date End Date Jay Howell MD [address] [place] [phone] PCP - General Emergency Medicine 11/12/23 documented as of this encounter
--- OUTSIDE RECORDS SUMMARY | 2025-08-07 08:52 | XMS_ITS | Encounter Summary ---
Author Organization [employer] ([place], [place], [place], [place]) Address [address] [place] [address] Care Team Providers Care Roadside Mechanic Name Role Phone Jay Howell MD Primary Care Provider [phone] Encounter Details Date Type Department Care Team (Late st Contact Info) Description 09/15/2020 Transcribed Document [facility] [place] Family Medicine [address] [place] [address] ProviderJessie MD [address] [place] [address] Social History Tobacco Use Types Packs/Day Years Used Date Smoking Tobacco: Never Assessed Comments Unknown Sex and Gender Information Value Date Recorded Sex Assigned at Not on file Legal Sex Female 7:30 PM CDT Gender Identity Not on file Sexual Orientation Not on file documented as of this encounter Miscellaneous Notes * Cerner Conversion Note - Jessie Yuen MD - 09/15/2020 4:06 PM MARKETING PROGRAM MANAGER Patient: SKYLER MONTOYA Age: 79 Years [...] present starting at the level of the RETAIL LOAN OFFICER. Non significant, non-flow restricting plaque noted at common femoral artery. 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 There is a significant (50-75%) stenosis of the distal RETAIL LOAN OFFICER. Non significant, non-flow restricting plaque noted at DPA. RETAIL LOAN OFFICER & DPA non compressible for FERNIE. TBI: Non compressible. LEFT: Abnormal arterial runoff disease present starting at the level of the RETAIL LOAN OFFICER. Non significant, non-flow restricting plaque noted at common femoral artery. There is a severe (>75%) stenosis of the distal RETAIL LOAN OFFICER. RETAIL LOAN OFFICER & DPA non compressible for FERNIE. TBI: Non compressible. Electronically signed by Sivan [facility] Conversion Infantry Weapons Officer Cerner at 02/04/2023 2:21 PM CDT documented in this encounter Plan of Treatment Not on file documented as of this encounter Visit Diagnoses Not on filedocumented in this encounter Care Teams Roadside Mechanic Relationship Specialty Start Date End Date Jay Howell MD [address] [place] [phone] PCP - General Emergency Medicine 11/12/23 documented as of this encounter
--- OUTSIDE RECORDS SUMMARY | 2025-08-07 08:52 | XMS_ITS | Encounter Summary ---
Author Organization [employer] ([place], [place], [place], [place]) Address [address] [place] [address] Care Team Providers Care Pond Worker Name Role Phone Jay Howell MD Primary Care Provider [phone] Encounter Details Date Type Department Care Team (Late st Contact Info) Description 08/29/2020 Transcribed Document [facility] Family Medicine [facility] [place] [address] ProviderJessie MD [address] [place] [address] Social History Tobacco Use Types Packs/Day Years Used Date Smoking Tobacco: Never Assessed Comments Unknown Sex and Gender Information Value Date Recorded Sex Assigned at Not on file Legal Sex Female 7:30 PM CDT Gender Identity Not on file Sexual Orientation Not on file documented as of this encounter Miscellaneous Notes * Cerner Conversion Note - Historical ProviderMD - 08/29/2020 1:32 PM MANAGER WOUND CARE Discharge Summary, PT Entered On: 08/29/2020 13:33 [...] - 08/29/2020 13:32 EST Electronically signed by [facility] Conversion Showroom Sales Assistant Cerner at 02/04/2023 2:09 PM CDT documented in this encounter Plan of Treatment Not on file documented as of this encounter Visit Diagnoses Not on filedocumented in this encounter Care Teams Pond Worker Relationship Specialty Start Date End Date Jay Howell MD [address] [place] [phone] PCP - General Emergency Medicine 11/12/23 documented as of this encounter
--- OUTSIDE RECORDS SUMMARY | 2025-08-07 08:52 | XMS_ITS | Encounter Summary ---
Author Organization [employer] ([place], [place], [place], [place]) Address [address] [place] [address] Care Team Providers Care Rn Telemetry Name Role Phone Jay Howell MD Primary Care Provider [phone] Encounter Details Date Type Department Care Team (Late st Contact Info) Description 09/29/2020 Transcribed Document [facility] [address] [place] [address] ProviderJessie MD [address] [place] [address] Social History Tobacco Use Types Packs/Day Years Used Date Smoking Tobacco: Never Assessed Comments Unknown Sex and Gender Information Value Date Recorded Sex Assigned at Not on file Legal Sex Female 7:30 PM CDT Gender Identity Not on file Sexual Orientation Not on file documented as of this encounter Miscellaneous Notes * Cerner Conversion Note - Historical ProviderMD - 09/29/2020 5:14 PM NETBACKUP ADMIN Patient: SKYLER MONTOYA Age: 79 Years Sex: [...] present starting at the level of the CABLE TENDER. Non significant, non-flow restricting plaque noted at common femoral artery. 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 There is a significant (50-75%) stenosis of the distal CABLE TENDER. Non significant, non-flow restricting plaque noted at DPA. CABLE TENDER & DPA non compressible for FERNIE. TBI: Non compressible. LEFT: Abnormal arterial runoff disease present starting at the level of the CABLE TENDER. Non significant, non-flow restricting plaque noted at common femoral artery. There is a severe (>75%) stenosis of the distal CABLE TENDER. CABLE TENDER & DPA non compressible for FERNIE. TBI: Non compressible. documented in this encounter Plan of Treatment Not on file documented as of this encounter Visit Diagnoses Not on filedocumented in this encounter Care Teams Rn Telemetry Relationship Specialty Start Date End Date Jay Howell MD [address] [place] [phone] PCP - General Emergency Medicine 11/12/23 documented as of this encounter
--- OUTSIDE RECORDS SUMMARY | 2025-08-07 08:52 | XMS_ITS | Encounter Summary ---
Author Organization [employer] ([place], [place], [place], [place]) Address [address] [place] [address] Care Team Providers Care Administrative Tech Name Role Phone Jay Howell MD Primary Care Provider [phone] Encounter Details Date Type Department Care Team (Late st Contact Info) Description 08/31/2020 Transcribed Document [facility] Family Medicine [address] [place] [address] ProviderJessie MD [address] [place] [address] Social History Tobacco Use Types Packs/Day Years Used Date Smoking Tobacco: Never Assessed Comments Unknown Sex and Gender Information Value Date Recorded Sex Assigned at Not on file Legal Sex Female 7:30 PM CDT Gender Identity Not on file Sexual Orientation Not on file documented as of this encounter Miscellaneous Notes * Cerner Conversion Note - Jessie Yuen MD - 08/31/2020 8:53 AM ARCHAEOLOGIST Patient: SKYLER MONTOYA Age: 79 years Sex: [...] for this consult, Miladys Lopez, KellD PGY-1 Csr Pager #: [phone] Extension #: [phone] Electronically signed by Sivan [facility] Conversion Gardening Manager Cerner at 02/04/2023 2:02 PM CDT documented in this encounter Plan of Treatment Not on file documented as of this encounter Visit Diagnoses Not on filedocumented in this encounter Care Teams Administrative Tech Relationship Specialty Start Date End Date Jay Howell MD [address] [place] [phone] PCP - General Emergency Medicine 11/12/23 documented as of this encounter
--- OUTSIDE RECORDS SUMMARY | 2025-08-07 08:52 | XMS_ITS | Encounter Summary ---
Author Organization [employer] ([place], [place], [place], [place]) Address [address] [place] [address] Care Team Providers Care Manager Technical Services Name Role Phone Jay Howell MD Primary Care Provider [phone] Encounter Details Date Type Department Care Team (Late st Contact Info) Description 08/29/2020 Transcribed Document [facility] [place] Family Medicine [address] [place] [address] ProviderJessie MD [address] [place], [place] [address] Social History Tobacco Use Types Packs/Day Years Used Date Smoking Tobacco: Never Assessed Comments Unknown Sex and Gender Information Value Date Recorded Sex Assigned at Not on file Legal Sex Female 7:30 PM CDT Gender Identity Not on file Sexual Orientation Not on file documented as of this encounter Miscellaneous Notes * Cerner Conversion Note - Jessie ProviderMD - 08/29/2020 1:45 PM DIRECTOR SHOPPER MARKETING RX Interventions Entered On: 08/29/2020 15:05 EST Performed On: 08/29/2020 15:03 EST by SLICK BRADLEY [facility] Clinical Interventions Clarify Drug Order : Yes SLICK BRADLEY RP - 08/29/2020 15:03 EST Clarify Drug Order Clarify Drug Order, Order : aprin gtt as bridge therapy. S/W Leti, wt 69kg (rounded to 70kg) NO bolus per attending. Start heparin gtt at 12.6ml/h Clarify Drug Order, Value : 0 Dollar Clarify Drug Order, Time : 10 Minute(s) SLICK BRADLEY, [facility] - 08/29/2020 15:03 EST Electronically signed by [facility], [facility] Conversion Erp Consultant Cerner at 02/04/2023 2:17 PM CDT documented in this encounter Plan of Treatment Not on file documented as of this encounter Visit Diagnoses Not on filedocumented in this encounter Care Teams Manager Technical Services Relationship Specialty Start Date End Date Jay Howell MD [address] [place] [phone] PCP - General Emergency Medicine 11/12/23 documented as of this encounter
--- OUTSIDE RECORDS SUMMARY | 2025-08-07 08:52 | XMS_ITS | Encounter Summary ---
Author Organization [employer] ([place], [place], [place], [place]) Address [address] [place] [address] Care Team Providers Care Financial Planner Name Role Phone Jay Howell MD Primary Care Provider [phone] Encounter Details Date Type Department Care Team (Late st Contact Info) Description 08/29/2020 Transcribed Document [facility] [place] Family Medicine [address] [place] [address] ProviderJessie MD [address] [place] [address] Social History Tobacco Use Types Packs/Day Years Used Date Smoking Tobacco: Never Assessed Comments Unknown Sex and Gender Information Value Date Recorded Sex Assigned at Not on file Legal Sex Female 7:30 PM CDT Gender Identity Not on file Sexual Orientation Not on file documented as of this encounter Miscellaneous Notes * Cerner Conversion Note - Jessie ProviderMD - 08/29/2020 2:50 PM ABE TEACHER WOCN Inpatient Documentation Entered On: 08/29/2020 14:52 [...] Ulcer WOCN Wound Pressure Ulcer Documentation : [id number] Abnormality: Leg Left Lower, Anterior on 08/29/2020 [...] filedocumented in this encounter Care Teams Financial Planner Relationship Specialty Start Date End Date Jay Howell MD [address] [place] [phone] PCP - General Emergency Medicine 11/12/23 documented as of this encounter
--- OUTSIDE RECORDS SUMMARY | 2025-08-07 08:52 | XMS_ITS | Encounter Summary ---
Author Organization [employer] ([place], [place], [place], [place]) Address [address] [place] [address] Care Team Providers Care Marketing Engineer Name Role Phone Jay Howell MD Primary Care Provider [phone] Encounter Details Date Type Department Care Team (Late st Contact Info) Description 08/30/2020 Transcribed Document [facility] [place] Family Medicine [address] [place] [address] ProviderJessie MD [address] [place] [address] Social History Tobacco Use Types Packs/Day Years Used Date Smoking Tobacco: Never Assessed Comments Unknown Sex and Gender Information Value Date Recorded Sex Assigned at Not on file Legal Sex Female 7:30 PM CDT Gender Identity Not on file Sexual Orientation Not on file documented as of this encounter Miscellaneous Notes * Cerner Conversion Note - Jessie Yuen MD - 08/30/2020 9:36 AM CITY AUDITOR Patient: SKYLER MONTOYA Age: 79 years Sex: [...] for this consult, Miladys Lopez, KellD PGY-1 Head Banquet Waitress Pager #: [phone] Extension #: [phone] Electronically signed by [facility], [facility] Conversion Color Corrector Cerner at 02/04/2023 2:03 PM CDT documented in this encounter Plan of Treatment Not on file documented as of this encounter Visit Diagnoses Not on filedocumented in this encounter Care Teams Marketing Engineer Relationship Specialty Start Date End Date Jay Howell MD [address] [place] [phone] PCP - General Emergency Medicine 11/12/23 documented as of this encounter
--- OUTSIDE RECORDS SUMMARY | 2025-08-07 08:52 | XMS_ITS | Encounter Summary ---
Author Organization [employer] ([place], [place], [place], [place]) Address [address] [place] [address] Care Team Providers Care Geoduck Diver Name Role Phone Jay Howell MD Primary Care Provider [phone] Encounter Details Date Type Department Care Team (Late st Contact Info) Description 08/31/[address] [facility] [place] [address] [place] [address] ProviderJessie MD [address] [place] [address] Social History Tobacco Use Types Packs/Day Years Used Date Smoking Tobacco: Never Assessed Comments Unknown Sex and Gender Information Value Date Recorded Sex Assigned at Not on file Legal Sex Female 7:30 PM CDT Gender Identity Not on file Sexual Orientation Not on file documented as of this encounter Miscellaneous Notes * Cerner Conversion Note - Jessie Yuen MD - 08/31/2020 10:44 AM HEALTH UNIT SUPERVISOR Patient: SKYLER MONTOYA Age: 79 years [...] level of muscle per surgery *Operation RIGHT CISCO CERTIFIED NETWORK PROFESSIONAL access - ultrasound guided Aortogram with LEFT lower extremity run-off LEFT PT angioplasty (2.5-2o155mr Nanocross) LEFT peroneal angioplasty (2.5-5b477qd Nanocross) RIGHT CISCO CERTIFIED NETWORK PROFESSIONAL closure (Angioseal) LEFT leg debridement 08/31/20 seen [...] Level 3.8 mmol/L 08/30/2020 04:13 MICRO: ACC: [id number] ORDER: Culture Anaerobic DATE: 08/26/2020 13:56 SOURCE: Surgical Swab SITE: Leg Lower L Reports Final 08/31/2020 07:45 No Anaerobic growth Pre 08/28/2020 07:01 No Anaerobic growth Pre 08/27/2020 07:47 Culture in progress == ACC: [id number] ORDER: Culture Blood DATE: 08/25/2020 05:01 SOURCE: Blood SITE: Reports Final 08/30/2020 06:01 No growth at 5 days. Pre 08/29/2020 06:01 No growth at 4 days. Pre 08/28/2020 06:01 No growth at 3 days. Pre 08/27/2020 06:01 No growth at 2 days. Pre 08/26/2020 06:01 No growth at 1 day. Pre 08/25/2020 23:02 Culture less than 24 Hrs old == ACC: [id number] ORDER: Culture Blood DATE: 08/25/2020 05:01 SOURCE: Blood SITE: Reports Final 08/30/2020 06:01 No growth at 5 days. Pre 08/29/2020 06:02 No growth at 4 days. Pre 08/28/2020 06:01 No growth at 3 days. Pre 08/27/2020 06:01 No growth at 2 days. Pre 08/26/2020 06:01 No growth at 1 day. Pre 08/25/2020 23:02 Culture less than 24 Hrs old == ACC: [id number] ORDER: Culture Wound and Stain DATE: 08/26/2020 15:23 SOURCE: Surgical Swab SITE: Leg Lower L Reports Final 08/29/2020 08:29 No growth Pre 08/27/2020 07:14 No growth GS 08/26/2020 18:13 Few White Blood Cells No organisms seen. == ACC: [id number] ORDER: Culture Wound and Stain DATE: 08/25/2020 05:00 SOURCE: Wound SITE: Leg Lower L Reports Final 08/28/2020 08:57 No growth Pre 08/26/2020 06:23 No growth GS 08/25/2020 07:26 No organisms seen. Few White Blood Cells Rare epithelial cells == ACC: [id number] ORDER: Culture AFB and Stain DATE: 08/26/2020 13:56 SOURCE: Surgical Swab SITE: Leg Lower L Reports AFS 08/27/2020 13:07 No Acid Fast Bacilli seen == ACC: [id number] ORDER: Culture Fungus DATE: 08/26/2020 13:56 SOURCE: [...] closely after discharge Electronically signed by Sivan [facility] Conversion Supervisor Transferring And Boxing Cerner at 02/04/2023 2:11 PM CDT documented in this encounter Plan of Treatment Not on file documented as of this encounter Visit Diagnoses Not on filedocumented in this encounter Care Teams Geoduck Diver Relationship Specialty Start Date End Date Jay Howell MD [address] [place] [phone] PCP - General Emergency Medicine 11/12/23 documented as of this encounter
--- OUTSIDE RECORDS SUMMARY | 2025-08-07 08:52 | XMS_ITS | Encounter Summary ---
Author Organization [employer] ([place], [place], [place], [place]) Address [address] [place] [address] Care Team Providers Care Territory Sales Professional Name Role Phone Jay Howell MD Primary Care Provider [phone] Encounter Details Date Type Department Care Team (Late st Contact Info) Description 09/01/2020 Transcribed Document [facility] [place] [address] [place] [address] ProviderJessie MD [address] [place] [address] Social History Tobacco Use Types Packs/Day Years Used Date Smoking Tobacco: Never Assessed Comments Unknown Sex and Gender Information Value Date Recorded Sex Assigned at Not on file Legal Sex Female 7:30 PM CDT Gender Identity Not on file Sexual Orientation Not on file documented as of this encounter Miscellaneous Notes * Cerner Conversion Note - Jessie ProviderMD - 09/01/2020 1:18 PM SUPERVISOR TRAVEL TRAILER On Going Discharge Planning Entered On: 09/01/2020 13:19 EST Performed On: 09/01/2020 13:18 EST by KAVITA PELLETIER RN-Mortgage Closing ClerkCarbonizer Tester Progress Note Discharge Arrangements : Patient Post-Acute Information Patient Name: SKYLER MONTOYA Gender: Female : 38 Age: 79 Years [place] Referral(s): Service: Organization: Business Address: Phone Number: [address], [address] Discharge Options Discussed with Patient [...] Attend Multidisciplinary Rounds? : Yes KAVITA PELLETIER RN-Mortgage Closing Clerk - 09/01/2020 13:18 EST Electronically signed by [facility], [facility] Conversion Police Pilot Cerner at 02/04/2023 2:00 PM CDT documented in this encounter Plan of Treatment Not on file documented as of this encounter Visit Diagnoses Not on filedocumented in this encounter Care Teams Territory Sales Professional Relationship Specialty Start Date End Date Jay Howell MD [address] [place] [phone] PCP - General Emergency Medicine 11/12/23 documented as of this encounter
--- OUTSIDE RECORDS SUMMARY | 2025-08-07 08:52 | XMS_ITS | Encounter Summary ---
Author Organization [employer] ([place], [place], [place], [place]) Address [address] [place] [address] Care Team Providers Care Vehicle Service Agent Name Role Phone Jay Howell MD Primary Care Provider [phone] Encounter Details Date Type Department Care Team (Late st Contact Info) Description 09/01/2020 Transcribed Document [facility] [place] Family Medicine [address] [place] [address] ProviderJessie MD [address] [place] [address] Social History Tobacco Use Types Packs/Day Years Used Date Smoking Tobacco: Never Assessed Comments Unknown Sex and Gender Information Value Date Recorded Sex Assigned at Not on file Legal Sex Female 7:30 PM CDT Gender Identity Not on file Sexual Orientation Not on file documented as of this encounter Miscellaneous Notes * Cerner Conversion Note - Jessie Yuen MD - 09/01/2020 10:55 AM PATIENT PLACEMENT COORDINATOR Patient: SKYLER MONTOYA Age: 79 years [...] level of muscle per surgery *Operation RIGHT CAST SHELL GRINDER access - ultrasound guided Aortogram with LEFT lower extremity run-off LEFT PT angioplasty ([id number] Nanocross) LEFT peroneal angioplasty (2.5-0q942pt Nanocross) RIGHT CAST SHELL GRINDER closure (Angioseal) LEFT leg debridement 09/01/20 probable [...] Results Found (Past 24 Hours) MICRO: ACC: [id number] ORDER: Culture Anaerobic DATE: 08/26/2020 13:56 SOURCE: Surgical Swab SITE: Leg Lower L Reports Final 08/31/2020 07:45 No Anaerobic growth Pre 08/28/2020 07:01 No Anaerobic growth Pre 08/27/2020 07:47 Culture in progress == ACC: [id number] ORDER: Culture Blood DATE: 08/25/2020 05:01 SOURCE: Blood SITE: Reports Final 08/30/2020 06:01 No growth at 5 days. Pre 08/29/2020 06:01 No growth at 4 days. Pre 08/28/2020 06:01 No growth at 3 days. Pre 08/27/2020 06:01 No growth at 2 days. Pre 08/26/2020 06:01 No growth at 1 day. Pre 08/25/2020 23:02 Culture less than 24 Hrs old == ACC: [id number] ORDER: Culture Blood DATE: 08/25/2020 05:01 SOURCE: Blood SITE: Reports Final 08/30/2020 06:01 No growth at 5 days. Pre 08/29/2020 06:02 No growth at 4 days. Pre 08/28/2020 06:01 No growth at 3 days. Pre 08/27/2020 06:01 No growth at 2 days. Pre 08/26/2020 06:01 No growth at 1 day. Pre 08/25/2020 23:02 Culture less than 24 Hrs old == ACC: [id number] ORDER: Culture Wound and Stain DATE: 08/26/2020 15:23 SOURCE: Surgical Swab SITE: Leg Lower L Reports Final 08/29/2020 08:29 No growth Pre 08/27/2020 07:14 No growth GS 08/26/2020 18:13 Few White Blood Cells No organisms seen. == ACC: [id number] ORDER: Culture Wound and Stain DATE: 08/25/2020 05:00 SOURCE: Wound SITE: Leg Lower L Reports Final 08/28/2020 08:57 No growth Pre 08/26/2020 06:23 No growth GS 08/25/2020 07:26 No organisms seen. Few White Blood Cells Rare epithelial cells == ACC: [id number] ORDER: Culture AFB and Stain DATE: 08/26/2020 13:56 SOURCE: Surgical Swab SITE: Leg Lower L Reports AFS 08/27/2020 13:07 No Acid Fast Bacilli seen == ACC: [id number] ORDER: Culture Fungus DATE: 08/26/2020 13:56 SOURCE: [...] wed in clinic Electronically signed by Sivan, [facility] Conversion Senior Java Web Developer Cerner at 02/04/2023 1:59 PM CDT documented in this encounter Plan of Treatment Not on file documented as of this encounter Visit Diagnoses Not on filedocumented in this encounter Care Teams Vehicle Service Agent Relationship Specialty Start Date End Date Jay Howell MD [address] [place] [phone] PCP - General Emergency Medicine 11/12/23 documented as of this encounter
--- OUTSIDE RECORDS SUMMARY | 2025-08-07 08:52 | XMS_ITS | Encounter Summary ---
Author Organization [employer] ([place], [place], [place], [place]) Address [address] [place] [address] Care Team Providers Care Family Services Coordinator Name Role Phone Jay Howell MD Primary Care Provider [phone] Encounter Details Date Type Department Care Team (Late st Contact Info) Description 09/04/2020 Transcribed Document [facility] [place] Family Medicine [address] [place] [address] ProviderJessie MD [address] [place] [address] Social History Tobacco Use Types Packs/Day Years Used Date Smoking Tobacco: Never Assessed Comments Unknown Sex and Gender Information Value Date Recorded Sex Assigned at Not on file Legal Sex Female 7:30 PM CDT Gender Identity Not on file Sexual Orientation Not on file documented as of this encounter Miscellaneous Notes * Cerner Conversion Note - Jessie ProviderMD - 09/04/2020 4:04 AM INSPECTOR SEMICONDUCTOR WAFER ED Triage Entered On: 09/04/2020 4:13 EST Performed On: 09/04/2020 1:51 EST by Chinyere Leonard RN ED Triage Across the Room Chief Complaint : see downtime triage form Triage Date/Time : 09/04/2020 1:51 EST Chinyere Leonard RN - 09/04/2020 4:12 EST DCP GENERIC CODE Tracking Acuity : 4 - Non - Urgent Tracking Group : [facility] ED Chinyere Leonard RN - 09/04/2020 4:12 EST Mode of Arrival : Ambulatory Transported to ED by : Private vehicle To Room Via : Ambulate Accompanied By : Spouse Height & Weight : Document ED Allergies : Document ED Reason for Visit : Document Tetanus Immunization : Less than 5 years Casing Mixer Needed : No Chinyere Leonard RN - [...] 04:13:26 EST) Problems(Active) Apnea, sleep (SNOMED CT :416144619 ) Name of Problem: Apnea, sleep ; Recorder: JUAN LUIS GIL RN; Confirmation: Confirmed ; Classification: Medical ; Code: 204951057 ; Contributor System: G-volution ; Last Updated: 11/12/2014 10:12 EST ; Life Cycle Date: 11/12/2014 ; Life Cycle Status: Active ; Vocabulary: SNOMED CT Arthritis (SNOMED CT :8728621 ) Name of Problem: Arthritis ; Recorder: KENYON CHAMBERS RN; Confirmation: Confirmed ; Classification: Medical ; Code: 6803729 ; Contributor System: PowerChart ; Last Updated: 04/10/2016 8:04 EDT ; Life Cycle Date: 08/13/2013 ; Life Cycle Status: Active ; Vocabulary: SNOMED CT Atrial fibrillation with RVR (SNOMED CT :0321001585 ) Name of Problem: Atrial fibrillation with RVR ; Recorder: SANG RICO APRN; Confirmation: Confirmed ; Classification: Medical ; Code: 3616341380 ; Contributor System: PowerChart ; Last Updated: 04/10/2016 8:05 EDT ; Life Cycle Date: 04/10/2016 ; Life Cycle Status: Active ; Responsible Provider: SANG RICO APRN; Vocabulary: SNOMED CT Blood clot (SNOMED CT :320423419 ) Name of Problem: Blood clot ; Recorder: KENYON CHAMBERS RN; Confirmation: Confirmed ; Classification: Patient Stated ; Code: 417478485 ; Contributor System: PowerChart ; Last Updated: [...] Vocabulary: Patient Care Chest pain (SNOMED CT :07000281 ) Name of Problem: Chest pain ; Recorder: SANG RICO APRN; Confirmation: Complaint of ; Classification: Medical ; Code: 91675932 ; Contributor System: PowerChart ; Last Updated: 04/10/2016 8:05 EDT ; Life Cycle Status: Active ; Responsible Provider: SANG RICO APRN; Vocabulary: SNOMED CT Chronic anticoagulation (SNOMED CT :337597141 ) Name of Problem: Chronic anticoagulation ; Recorder: SANG RICO APRN; Confirmation: Confirmed ; Classification: Medical ; Code: 935884038 ; Contributor System: PowerChart ; Last Updated: 04/10/2016 8:05 EDT ; Life Cycle Date: 04/10/2016 ; Life Cycle Status: Active ; Responsible Provider: SANG RICO APRN; Vocabulary: SNOMED CT Clotting disorder (SNOMED CT :181912883 ) Name of Problem: Clotting disorder ; Recorder: KENYON CHAMBERS RN; Confirmation: Confirmed ; Classification: Patient Stated ; Code: 122446213 ; Contributor System: PowerChart ; Last Updated: 03/28/2014 19:29 EDT ; Life Cycle Date: 08/13/2013 ; Life Cycle Status: Active ; Vocabulary: SNOMED CT COPD (SNOMED CT :31236384 ) Name of Problem: COPD ; Recorder: KENYON CHAMBERS RN; Confirmation: Confirmed ; Classification: Medical ; Code: 36197434 ; Contributor System: PowerChart ; Last Updated: 04/10/2016 8:03 EDT ; Life Cycle Date: 08/13/2013 ; Life Cycle Status: Active ; Vocabulary: SNOMED CT Coronary artery disease (SNOMED CT :8839356714 ) Name of Problem: Coronary artery disease ; Recorder: KENYON CHAMBERS RN; Confirmation: Confirmed ; Classification: Medical ; Code: 9520644449 ; Contributor System: PowerChart ; Last Updated: 04/10/2016 8:03 EDT ; Life Cycle Date: 08/13/2013 ; Life Cycle Status: Active ; Vocabulary: SNOMED CT Diabetes mellitus (SNOMED CT :635099970 ) Name of Problem: Diabetes mellitus ; Recorder: KENYON CHAMBERS RN; Confirmation: Confirmed ; Classification: Medical ; Code: 727742854 ; Contributor System: PowerChart ; Last Updated: 04/10/2016 8:04 EDT ; Life Cycle Date: 08/13/2013 ; Life Cycle Status: Active ; Vocabulary: SNOMED CT Emphysema (SNOMED CT :752728082 ) Name of Problem: Emphysema ; Recorder: JUAN LUIS GIL RN; Confirmation: Confirmed ; Classification: Medical ; Code: 593880829 ; Contributor System: PowerChart ; Last Updated: 11/12/2014 10:11 EST ; Life Cycle Date: 11/12/2014 ; Life Cycle Status: Active ; Vocabulary: SNOMED CT GERD - Gastro-esophageal reflux disease (SNOMED CT :6096502803 ) Name of Problem: GERD - Gastro-esophageal reflux disease ; Recorder: KENYON CHAMBERS RN; Confirmation: Confirmed ; Classification: Medical ; Code: 2771706551 ; Contributor System: PowerChart ; Last Updated: [...] Patient Care High blood pressure (SNOMED CT :41941221 ) Name of Problem: High blood pressure ; Recorder: KENYON CHAMBERS RN; Confirmation: Confirmed ; Classification: Medical ; Code: 53311815 ; Contributor System: PowerChart ; Last Updated: 04/10/2016 8:03 EDT ; Life Cycle Date: 08/13/2013 ; Life Cycle Status: Active ; Vocabulary: SNOMED CT History of obstructive sleep apnea (IMO :70836697 ) Name of Problem: History of obstructive sleep apnea ; Recorder: SYSTEM, SYSTEM; Confirmation: Confirmed ; Classification: Medical ; Code: 77597642 ; Last Updated: 08/25/2020 18:21 EST ; Life Cycle Date: 08/25/2020 ; Life Cycle Status: Active ; Vocabulary: IMO Hx of pulmonary embolus (SNOMED CT :149978870 ) Name of Problem: Hx of pulmonary embolus ; Recorder: SANG RICO APRN; Confirmation: Confirmed ; Classification: Medical ; Code: 022605607 ; Contributor System: PowerChart ; Last Updated: 04/10/2016 8:05 EDT ; Life Cycle Date: 04/10/2016 ; Life Cycle Status: Active ; Responsible Provider: SANG RICO APRN; Vocabulary: SNOMED CT Hyperlipidemia (SNOMED CT :40665272 ) Name of Problem: Hyperlipidemia ; Recorder: KENYON CHAMBERS RN; Confirmation: Confirmed ; Classification: Medical ; Code: 56250229 ; Contributor System: PowerChart ; Last Updated: 04/10/2016 8:03 EDT ; Life Cycle Date: 08/13/2013 ; Life Cycle Status: Active ; Vocabulary: SNOMED CT Multiple renal cysts (SNOMED CT :947904059 ) Name of Problem: Multiple renal cysts ; Recorder: KENYON CHAMBERS RN; Confirmation: Confirmed ; Classification: Medical ; Code: 161447770 ; Contributor System: G-volution ; Last Updated: 04/10/2016 8:04 EDT ; Life Cycle Date: 08/13/2013 ; Life Cycle Status: Active ; Vocabulary: SNOMED CT Stented coronary artery (SNOMED CT :0770396950 ) Name of Problem: Stented coronary artery ; Recorder: KENYON CHAMBERS RN; Confirmation: Confirmed ; Classification: Medical ; Code: 0845153610 ; Contributor System: G-volution ; Last Updated: 04/10/2016 8:03 EDT ; Life Cycle Date: 08/13/2013 ; Life Cycle Status: Active ; Vocabulary: SNOMED CT Diagnoses(Active) Wound drain evaluation Date: 09/04/2020 ; Diagnosis Type: Reason For Visit ; Confirmation: Complaint of ; Clinical Dx: Wound drain evaluation ; Classification: Medical ; Clinical Service: Non-Specified ; Code: PNED ; Probability: 0 ; Diagnosis Code: [id number] ED Height and Weight Height Source : Stated Height Entry Format : [place] Height, Feet : 5 ft(Converted to: 152 cm, 60 Inch) Height, Inches : 4 Inch(Converted to: 0 ft 4 Inch, 10.16 cm) Clinical Height : 162.56 cm Weight Source, ED : Critical estimated dosing weight Weight Entry Format : [place] Weight, Pounds : 152 lb Clinical Dosing Weight : 69.09 kg Body Surface Area (BSA) : 1.74 m2 Body Mass Index : 26.1 kg/m2 (HI) Pound Body Weight (IBW) : 54.3 kg Chinyere Leonard RN - 09/04/2020 4:12 EST documented in this encounter Plan of Treatment Not on file documented as of this encounter Visit Diagnoses Not on filedocumented in this encounter Care Teams Family Services Coordinator Relationship Specialty Start Date End Date Jay Howell MD [address] [place] [phone] PCP - General Emergency Medicine 11/12/23 documented as of this encounter
--- OUTSIDE RECORDS SUMMARY | 2025-08-07 08:52 | XMS_ITS | Encounter Summary ---
Author Organization [employer] ([place], [place], [place], [place]) Address [address] [place] [address] Care Team Providers Care Forestry Pilot Name Role Phone Jay Howell MD Primary Care Provider [phone] Encounter Details Date Type Department Care Team (Late st Contact Info) Description 08/29/2020 Transcribed Document [facility] [place] [address] [place] [address] ProviderJessie MD [address] [place], [place] [address] Social History Tobacco Use Types Packs/Day Years Used Date Smoking Tobacco: Never Assessed Comments Unknown Sex and Gender Information Value Date Recorded Sex Assigned at Not on file Legal Sex Female 7:30 PM CDT Gender Identity Not on file Sexual Orientation Not on file documented as of this encounter Miscellaneous Notes * Cerner Conversion Note - Historical ProviderMD - 08/29/2020 12:42 PM POULTRY FARM MANAGER Patient: SKYLER MONTOYA Age: 79 Years [...] 08/29/2020 01:38 EST Electronically signed by Sivan [facility] Conversion Gum Machine Filler Cerner at 02/04/2023 2:06 PM CDT documented in this encounter Plan of Treatment Not on file documented as of this encounter Visit Diagnoses Not on filedocumented in this encounter Care Teams Forestry Pilot Relationship Specialty Start Date End Date Jay Howell MD [address] [place] [phone] PCP - General Emergency Medicine 11/12/23 documented as of this encounter
--- OUTSIDE RECORDS SUMMARY | 2025-08-07 08:52 | XMS_ITS | Encounter Summary ---
Author Organization [employer] ([place], [place], [place], [place]) Address [address] [place] [address] Care Team Providers Care Telephone Lineworker Name Role Phone Jay Howell MD Primary Care Provider [phone] Encounter Details Date Type Department Care Team (Late st Contact Info) Description 09/01/2020 Transcribed Document [facility] [place] Family [place] [facility] [place] [address] ProviderJessie MD [address] [place], [place] [address] Social History Tobacco Use Types Packs/Day Years Used Date Smoking Tobacco: Never Assessed Comments Unknown Sex and Gender Information Value Date Recorded Sex Assigned at Not on file Legal Sex Female 7:30 PM CDT Gender Identity Not on file Sexual Orientation Not on file documented as of this encounter Miscellaneous Notes * Cerner Conversion Note - Historical MD Alpa - 09/01/2020 9:27 AM PUBLIC UTILITIES SALES REPRESENTATIVE Patient: SKYLER BAUTISTA Age: 79 Years Sex: [...] [1] Summary BILATERAL: Monophasic waveforms of the MOBILE APPLICATION ARCHITECT, & DPA . Unable to compress MOBILE APPLICATION ARCHITECT and DPA (>220 mmHg). Toe brachial index: Non-compressible [2] RIGHT: Abnormal arterial runoff disease present starting at the level of the MOBILE APPLICATION ARCHITECT. Non significant, non-flow restricting plaque noted at common femoral artery. 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 There is a significant (50-75%) stenosis of the distal MOBILE APPLICATION ARCHITECT. Non significant, non-flow restricting plaque noted at DPA. MOBILE APPLICATION ARCHITECT & DPA non compressible for FERNIE. TBI: Non compressible. LEFT: Abnormal arterial runoff disease present starting at the level of the MOBILE APPLICATION ARCHITECT. Non significant, non-flow restricting plaque noted at common femoral artery. There is a severe (>75%) stenosis of the distal MOBILE APPLICATION ARCHITECT. MOBILE APPLICATION ARCHITECT & DPA non compressible for FERNIE. TBI: [...] multiple stent placements. The patient presented to [facility] ER after recent fall with [...] this week. I had spoken to Dr. Moellre regarding her INR. With recent hematoma we [...] Vitamins oral tablet 1 Tab, Oral, Daily [place] 7.5 mg-325 mg oral tablet 1 Tab, [...] -- Start: 08/26/20 17:14:00 EST, 60 gm carbs:[id number] george, Isolation: Standard Precautions, Instructions: Diabetic Diet [...] Ankle Min 3 Vws LT; Shannon Marquez, Webbing Tacker 08/22/2020 21:21 EST [2] [facility]; ERMA ZHENG MD-AMALIA 08/25/2020 11:29 EST [3] [facility]; ERMA ZHENG MD-AMALIA 08/25/2020 11:40 EST [4] MRI Spine Lumbar WO; Leti Wakefield, MULTI MODALITY TECHNOLOGIST 08/25/2020 15:21 EST [5] CT Abdomen WO W; Gus Lopez, DRUM ATTENDANT 08/27/2020 18:06 EST [6] Admission History and Physical; BETH DAVALOS MD-INT 08/25/2020 06:23 EST Electronically signed by Gayle Finnegan Conversion Fourdrinier Machine Operator Cerner at 02/04/2023 2:21 PM CDT documented in this encounter Plan of Treatment Not on file documented as of this encounter Visit Diagnoses Not on filedocumented in this encounter Care Teams Telephone Lineworker Relationship Specialty Start Date End Date Jay Howell MD [address] [place] [phone] PCP - General Emergency Medicine 11/12/23 documented as of this encounter
--- OUTSIDE RECORDS SUMMARY | 2025-08-07 08:52 | XMS_ITS | Encounter Summary ---
Author Organization [employer] ([place], [place], [place], [place]) Address [address] [place] [address] Care Team Providers Care Organ Builder Name Role Phone Jay Howell MD Primary Care Provider [phone] Encounter Details Date Type Department Care Team (Late st Contact Info) Description 09/04/2020 Transcribed Document [facility] [place] Family Medicine [address] [place] [address] ProviderJessie MD [address] [place] [address] Social History Tobacco Use Types Packs/Day Years Used Date Smoking Tobacco: Never Assessed Comments Unknown Sex and Gender Information Value Date Recorded Sex Assigned at Not on file Legal Sex Female 7:30 PM CDT Gender Identity Not on file Sexual Orientation Not on file documented as of this encounter Miscellaneous Notes * Cerner Conversion Note - Historical ProviderMD - 09/04/2020 4:13 AM STICKER ON ED Event Note Entered On: 09/04/2020 4:13 EST Performed On: 09/04/2020 4:13 EST by Chinyere Leonard RN ED Event Note ED Event Date/Time : 09/04/2020 2:00 EST ED Description of Event : pt arrived during system downtime; view downtime form Chinyere Leonard RN - 09/04/2020 4:13 EST Electronically signed by Sivan [facility] Conversion Boom Crane Operator Cerner at 02/04/2023 2:13 PM CDT documented in this encounter Plan of Treatment Not on file documented as of this encounter Visit Diagnoses Not on filedocumented in this encounter Care Teams Organ Builder Relationship Specialty Start Date End Date Jay Howell MD [address] [place] [phone] PCP - General Emergency Medicine 11/12/23 documented as of this encounter
--- OUTSIDE RECORDS SUMMARY | 2025-08-07 08:53 | XMS_ITS | Encounter Summary ---
Author Organization [employer] ([place], [place], [place], [place]) Address [address] [place] [address] Care Team Providers Care Mussel Farmer Name Role Phone Jay Howell MD Primary Care Provider [phone] Encounter Details Date Type Department Care Team (Late st Contact Info) Description 12/12/2018 Transcribed Document [facility] [place] Family Medicine [address] [place] [address] ProviderJessie MD [address] [place] [address] Social History Tobacco Use Types Packs/Day Years Used Date Smoking Tobacco: Never Assessed Comments Unknown Sex and Gender Information Value Date Recorded Sex Assigned at Not on file Legal Sex Female 7:30 PM CDT Gender Identity Not on file Sexual Orientation Not on file documented as of this encounter Miscellaneous Notes * Cerner Conversion Note - Jessie ProviderMD - 12/12/2018 10:39 PM LACE ROLLER ED Discharge Entered On: 12/12/2018 22:40 EST [...] - 12/12/2018 22:39 EST Electronically signed by [facility], [facility] Conversion Appeals Examiner Cerner at 02/04/2023 2:15 PM CDT documented in this encounter Plan of Treatment Not on file documented as of this encounter Visit Diagnoses Not on filedocumented in this encounter Care Teams Mussel Farmer Relationship Specialty Start Date End Date Jay Howell MD [address] [place] [phone] PCP - General Emergency Medicine 11/12/23 documented as of this encounter
--- OUTSIDE RECORDS SUMMARY | 2025-08-07 08:53 | XMS_ITS | Encounter Summary ---
Author Organization [employer] ([place], [place], [place], [place]) Address [address] [place] [address] Care Team Providers Care Juice Packaging Machines Setter Name Role Phone Jay Howell MD Primary Care Provider [phone] Encounter Details Date Type Department Care Team (Late st Contact Info) Description 12/12/2018 Transcribed Document [facility] [place] [address] [place] [address] ProviderJessie MD [address] [place] [address] Social History Tobacco Use Types Packs/Day Years Used Date Smoking Tobacco: Never Assessed Comments Unknown Sex and Gender Information Value Date Recorded Sex Assigned at Not on file Legal Sex Female 7:30 PM CDT Gender Identity Not on file Sexual Orientation Not on file documented as of this encounter Miscellaneous Notes * Cerner Conversion Note - Jessie Yuen MD - 12/12/2018 8:58 PM CRATE LINER ED Assessment Entered On: 12/12/2018 21:53 EST [...] Communication Barrier : None Primary Language : Afghan Additional Emergency Contact #1 : Johnny Montoya Additional Contact #1 Phone Number : [phone] Additional Contact #1 Relationship : spouse Any [...] Rhythm : Regular Nail Bed Color : [place] Chest Pain : Yes Neck Vein Distention [...] 12/12/2018 21:49 EST Electronically signed by Interface, [facility] Conversion [employer] Special Education Teacher Cerner at 02/04/2023 2:13 PM CDT documented in this encounter Plan of Treatment Not on file documented as of this encounter Visit Diagnoses Not on filedocumented in this encounter Care Teams Juice Packaging Machines Setter Relationship Specialty Start Date End Date Jay Howell MD [address] [place] [phone] PCP - General Emergency Medicine 11/12/23 documented as of this encounter
--- OUTSIDE RECORDS SUMMARY | 2025-08-07 08:53 | XMS_ITS | Encounter Summary ---
Author Organization [employer] ([place], [place], [place], [place]) Address [address] [place] [address] Care Team Providers Care Curtain Stretcher Assembler Name Role Phone Jay Howell MD Primary Care Provider [phone] Encounter Details Date Type Department Care Team (Late st Contact Info) Description 12/12/2018 Transcribed Document [facility] [place] [address] [place] [address] ProviderJessie MD [address] [place], [place] [address] Social History Tobacco Use Types Packs/Day Years Used Date Smoking Tobacco: Never Assessed Comments Unknown Sex and Gender Information Value Date Recorded Sex Assigned at Not on file Legal Sex Female 7:30 PM CDT Gender Identity Not on file Sexual Orientation Not on file documented as of this encounter Miscellaneous Notes * Cerner Conversion Note - Jessie ProviderMD - 12/12/2018 10:41 PM COUNSELING SERVICES DIRECTOR [address] [place] [address] Patient Information Name: SKYLER MONTOYA [...] please contact the Patient Resource Center at [phone]. With: Address: When: Follow-up with your purchaser automotive parts in the morning. Return to the closest emergency department for any acute new concerns or recurrence of symptoms. Within in AM With: Address: When: TARA CHEN [address] [place] [address] [address] [place], [place] [address] [facility] (1) Within 2 to 3 [...] physical activity. It especially occurs in the mortgage manager hours. What are the causes? Atherosclerosis is [...] 10/03/2006 Document Revised: 03/16/2017 Document Reviewed: 02/04/2015 [employer] Interactive Patient Education ? 2017 [employer]. Allergies: Macrodantin; morphine; nitrofurantoin Medication Information: [...] range between ( 0.0 and 7.0 ) Ringgold #: 0.65 K/uL -- Normal range between ( 0.16 and 1.00 ) Eos #: 0.00 x10(3)/uL -- Normal range between ( 0.00 and 0.80 ) Ringgold %: 10.7 % -- Normal range between [...] verify that SKYLER MONTOYA was seen at [facility] Emergency Department on ,12/12/2018 22:41:24. [...] along the way. As a healthcare provider, [facility] recommends that you stop smoking. Assistance with quitting is available by contacting 3-895-FABY-NOW. This is a free resource providing counseling, [...] Electronic Communications Privacy Act 18 U.S.C. ???Sections 3136-8113,?? and contain information intended for the specified [...] Be sure to sign up for the [facility] patient portal, which gives you 09/05 access to your medical information ??? including these discharge instructions ??? using your computer, smartphone, or tablet. Just go to OnetoOnetext to get started. Questions? Call . Acknowledgment [...] Instructions: Emergency Physician: Electronically signed by Sivan, [facility] Conversion Band Singer Cerner at 02/04/2023 1:56 PM CDT documented in this encounter Plan of Treatment Not on file documented as of this encounter Visit Diagnoses Not on filedocumented in this encounter Care Teams Curtain Stretcher Assembler Relationship Specialty Start Date End Date Jay Howell MD [address] [place] [phone] PCP - General Emergency Medicine 11/12/23 documented as of this encounter
--- OUTSIDE RECORDS SUMMARY | 2025-08-07 08:53 | XMS_ITS | Encounter Summary ---
Author Organization [employer] ([place], [place], [place], [place]) Address [address] [place] [address] Care Team Providers Care Service Car Operator Name Role Phone Jay Howell MD Primary Care Provider [phone] Encounter Details Date Type Department Care Team (Late st Contact Info) Description 12/12/2018 Transcribed Document [facility] [place] Family Medicine [address] [place] [address] ProviderJessie MD [address] [place], [place] [address] Social History Tobacco Use Types Packs/Day Years Used Date Smoking Tobacco: Never Assessed Comments Unknown Sex and Gender Information Value Date Recorded Sex Assigned at Not on file Legal Sex Female 7:30 PM CDT Gender Identity Not on file Sexual Orientation Not on file documented as of this encounter Miscellaneous Notes * Cerner Conversion Note - Historical ProviderMD - 12/12/2018 10:20 PM EMBEDDED NURSE Electronically signed by [facility] Conversion Environmental Scientist Cerner at 02/04/2023 1:59 PM CDT documented in this encounter Plan of Treatment Not on file documented as of this encounter Visit Diagnoses Not on filedocumented in this encounter Care Teams Service Car Operator Relationship Specialty Start Date End Date Jay Howell MD [address] [place] [phone] PCP - General Emergency Medicine 11/12/23 documented as of this encounter
--- OUTSIDE RECORDS SUMMARY | 2025-08-07 08:53 | XMS_ITS | Encounter Summary ---
Author Organization [employer] ([place], [place], [place], [place]) Address [address] [place] [address] Care Team Providers Care Gang Miner Name Role Phone Jay Howell MD Primary Care Provider [phone] Encounter Details Date Type Department Care Team (Late st Contact Info) Description 09/01/2020 Transcribed Document [facility] [place] [address] [place] [address] ProviderJessie MD [address] [place] [address] Social History Tobacco Use Types Packs/Day Years Used Date Smoking Tobacco: Never Assessed Comments Unknown Sex and Gender Information Value Date Recorded Sex Assigned at Not on file Legal Sex Female 7:30 PM CDT Gender Identity Not on file Sexual Orientation Not on file documented as of this encounter Miscellaneous Notes * Cerner Conversion Note - Historical ProviderMD - 09/01/2020 2:22 PM DEPUTY SHERIFF Stroke/Warfarin Instructions Entered On: 09/01/2020 14:22 EST Performed On: 09/01/2020 14:22 EST by Kailee Velasquez RN Stroke/Warfarin Instructions Stroke/TIA Discharge Ins : N/A Warfarin Discharge Ins : N/A Kailee Velasquez RN - 09/01/2020 14:22 EST documented in this encounter Plan of Treatment Not on file documented as of this encounter Visit Diagnoses Not on filedocumented in this encounter Care Teams Gang Miner Relationship Specialty Start Date End Date Jay Howell MD [address] [place] [phone] PCP - General Emergency Medicine 11/12/23 documented as of this encounter
--- OUTSIDE RECORDS SUMMARY | 2025-08-07 08:53 | XMS_ITS | Encounter Summary ---
Author Organization [employer] ([place], [place], [place], [place]) Address [address] [place] [address] Care Team Providers Care Public Affairs Manager Name Role Phone Jay Howell MD Primary Care Provider [phone] Encounter Details Date Type Department Care Team (Late st Contact Info) Description 12/12/2018 Transcribed Document [facility] [place] Family Medicine [address] [place] [address] ProviderJessie MD [address] [place] [address] Social History Tobacco Use Types [...] - Historical ProviderMD - 12/12/2018 10:41 PM INFIRMARY ATTENDANT [address] [place], [place] [id number] PERSON INFORMATION Name SKYLER MONTOYA Age 77 Years 1940 Sex Female Language Icelandic PCP TARA CHEN (REF), -MED Marital Status Med Service Emergency Medicine Acct# Arrival 12/12/2018 20:58:00 Visit Reason Chest pain; CHEST PAIN FOR LAST 2HRS Acuity 2 - Emergent LOS 000 01:43 Depart Date: 02/26/19 10:41 PM Address: [place] [address] Comment: PROVIDER INFORMATION Provider Role Assigned Unassigned [...] please contact the Patient Resource Center at [phone]. With: Address: When: Follow-up with your foreclosure home inspector in the morning. Return to the closest emergency department for any acute new concerns or recurrence of symptoms. Within in AM With: Address: When: TARA CHEN [address] [facility] [place] [address] Business (1) Within 2 to 3 days Comment: documented in this encounter Plan of Treatment Not on file documented as of this encounter Visit Diagnoses Not on filedocumented in this encounter Care Teams Public Affairs Manager Relationship Specialty Start Date End Date Jay Howell MD [address] [facility] [place] [address] PCP - General Emergency Medicine 11/12/23 documented as of this encounter
--- OUTSIDE RECORDS SUMMARY | 2025-08-07 08:53 | XMS_ITS | Clinical Summary ---
Author Organization [facility] Address [address] [place] [address] Phone Care Team Providers Care Pediatric Dermatologist Name Role Phone Smita ESCOBEDO, Jorje Arceo [ ] Conditions or Problems Problem Name Problem Code Onset Date Status Entry Date Provider Comment Standard Description Annotate Contusion of left lower leg, subsequent encounter(s) S80.12xD (ICD-10-CM) Active Arlen Feng Contusion of left lower leg, subsequent encounter Cellulitis of LLE L03.116 (ICD-10-CM) Active Arlen Feng Cellulitis of left lower limb DM II with diabetic PVD 635813713 (SNOMED CT) Active Arlen Feng Peripheral vascular disease Benign Essential Hypertension 2476552 (SNOMED CT) Active Arlen Feng Benign essential hypertension Medications Medication Instructions Start Date Stop Date Generic Name [facility] Provider VALSARTAN 160 MG TABS 1 tablet po daily VALSARTAN 89238378988 Leti Dela Cruz ALPRAZOLAM 0.5 MG TABS Take one by mouth daily/PRN ALPRAZOLAM 07918655873 Lexi Nascimentodox VIBRAMYCIN 100 MG ORAL CAPSULE Take by mouth twice a day DOXYCYCLINE HYCLATE 10714982829 Lexi Gipson TERBINAFINE HCL 250 MG TABS Take one by mouth daily TERBINAFINE HCL 04314523699 Lexi Gipson RANEXA 1000 MG ORAL TABLET EXTENDED RELEASE 12 HOUR Take by mouth twice a day RANOLAZINE 29345499335 Lexi Gipson CLOPIDOGREL BISULFATE 75 MG TABS Take one by mouth daily CLOPIDOGREL BISULFATE 27605237838 Lexi Nascimentodox OMEPRAZOLE 40 MG CPDR Take one by mouth daily OMEPRAZOLE 69736472887 Lexi Nascimentodox NORVASC 10 MG TABS Take one by mouth daily AMLODIPINE BESYLATE 62745945175 Lexi Nascimentodox HYDROCODONE-ACET AMINOPHEN 7.5-325 MG TABS Q6H/PRN HYDROCODONE-ACET AMINOPHEN 98095556314 Lexi Nascimentodox DAILY MULTIVITAMIN CAPS Take one by mouth daily MULTIPLE VITAMINS-MINERAL S 20029021786 Lexi Nascimentodox METFORMIN HCL 500 MG TABS Take by mouth twice a day METFORMIN HCL 34199900535 Lexi Thorpex LOVENOX 60 MG/0.6ML SUBCUTANEOUS SOLUTION 70 mg, SubCutaneous, Q12H ENOXAPARIN SODIUM 72566039737 Lexi Nascimentodox LOSARTAN POTASSIUM 100 MG TABS Take one by mouth daily LOSARTAN POTASSIUM 11068245052 Lexi Nascimentodox ACIDOPHILUS LACTOBACILLUS CAPS Take two by mouth daily LACTOBACILLUS 28654060250 Lexi Gipson HYDRALAZINE HCL 50 MG TABS 2 Tab, Oral, BID HYDRALAZINE HCL 70936457408 Lexi Thorpex DORZOLAMIDE HCL 2 % SOLN 1 Drop, Eye Right, BID DORZOLAMIDE HCL 04246160218 Lexi Nascimentodox WARFARIN SODIUM 3 MG TABS Take one by mouth daily WARFARIN SODIUM 59845841638 Lexi Nascimentodox CARVEDILOL 6.25 MG TABS Take one by mouth 3 times daily, morning, afternoon and evening. CARVEDILOL 81561103171 Lexi Nascimentodox ATORVASTATIN CALCIUM 80 MG TABS Take one by mouth daily ATORVASTATIN CALCIUM 91226716341 Lexi Gipson AMOXICILLIN-POT CLAVULANATE 875-125 MG TABS Take by mouth twice a day AMOXICILLIN-POT CLAVULANATE 99866828966 Lexi Gipson Medications Administered No information available. [...]
--- OUTSIDE RECORDS SUMMARY | 2025-08-07 08:53 | XMS_ITS | Encounter Summary ---
Author Organization [employer] ([place], [place], [place], [place]) Address [address] [place] [address] Care Team Providers Care Tooth Cutter Name Role Phone Jay Howell MD Primary Care Provider [phone] Encounter Details Date Type Department Care Team (Late st Contact Info) Description 09/01/2020 Transcribed Document [facility] Family Medicine [address] [place] [address] ProviderJessie MD [address] [place] [address] Social History Tobacco Use Types Packs/Day Years Used Date Smoking Tobacco: Never Assessed Comments Unknown Sex and Gender Information Value Date Recorded Sex Assigned at Not on file Legal Sex Female 7:30 PM CDT Gender Identity Not on file Sexual Orientation Not on file documented as of this encounter Miscellaneous Notes * Cerner Conversion Note - Jessie Yuen MD - 09/01/2020 9:57 AM TANK CLEANER TARA CHEN, [address] [place] [address] Re: SKYLER MONTOYA Date of Visit: 08/25/2020 [...] is strictly prohibited. Sincerely, KAREN PUTNAM [address] [facility] [address] [place] [id number] The following document(s) were included in the letter: September 01, 2020 09:27:18 EST - (09/01/2020) Discharge Note documented in this encounter Plan of Treatment Not on file documented as of this encounter Visit Diagnoses Not on filedocumented in this encounter Care Teams Tooth Cutter Relationship Specialty Start Date End Date Jay Howell MD [address] [place] [phone] PCP - General Emergency Medicine 11/12/23 documented as of this encounter
--- OUTSIDE RECORDS SUMMARY | 2025-08-07 08:53 | XMS_ITS | Encounter Summary ---
Author Organization [employer] ([place], [place], [place], [place]) Address [address] [place] [address] Care Team Providers Care Manager Enterprise Content Management Name Role Phone Jay Howell MD Primary Care Provider [phone] Encounter Details Date Type Department Care Team (Late st Contact Info) Description 09/01/2020 Transcribed Document [facility] [place] Family Medicine [address] [place] [address] ProviderJessie MD [address] [place], [place] [address] Social History Tobacco Use Types Packs/Day Years Used Date Smoking Tobacco: Never Assessed Comments Unknown Sex and Gender Information Value Date Recorded Sex Assigned at Not on file Legal Sex Female 7:30 PM CDT Gender Identity Not on file Sexual Orientation Not on file documented as of this encounter Miscellaneous Notes * Cerner Conversion Note - Jessie Yuen MD - 09/01/2020 9:47 AM GROUND SUPPORT EQUIPMENT FITTER [address] , [place], [place] [address] Patient Copy Patient Information: Name: SKYLER MONTOYA Current Date: 09/01/2020 09:47:45 : 1940 Patient Address: [address] [place] [id number] Patient Attending Physician: SARAH CONTEH MD Primary Care Provider: TARA CHEN (REF), -MED Primary Care Provider Discharge Diagnosis: Cellulitis of leg; Hematoma of left lower leg Weight on Admission: 152 lb, 0 oz Comment: Follow-up Instructions: With: Address: When: KAVITHA HIDALGO [address] [facility], [address] [place], [place] [id number] Business (1) In 2 days 09/03/2020 Comments: needs apt scheduled prior to DC With: Address: When: TARA CHEN [address] [place] [address] Business (1) Within 2 days Comments: needs INR check We have held your Aspirin per vascular surgeon, Dr. Verde. With: Address: When: KAELA ORTAKALI [facility], [address] [place] [address] Business (1) 12:30 PM Comments: F/u w/ FERNIE With: Address: When: KAELA VERDE [facility], [address] [place], [place] [phone] Business (1) 12:45 PM Comments: F/u W with Irina Troy PA-C Discharge Instructions: Immunizations Documented During Stay: No Immunizations Found Heart Failure Discharge Instructions (if any): Stroke Related Discharge Instructions (if any): Warfarin Related Discharge Instructions (if any): Final Medication List: [facility], [address] [facility] [address] [place], [place] [id number], [phone] amLODIPine (Norvasc 10 mg oral tablet) 1 [...] At Bedtime as needed for anxiety/sleep. acetaminophen-hydrocodone (Risco 7.5 mg-325 mg oral tablet) 1 Tablet(s) [...] these instructions at home: Medicines ??? Take obaa-erl-ltlielr and prescription medicines only as told by [...] 03/21/2009 Document Revised: 02/22/2019 Document Reviewed: 02/22/2019 [employer] Patient Education ? 2019 [employer]. What You Need to Know About Warfarin [...] other medicines or supplements? Many prescription and syan-zaa-pejsyra medicines can interfere with warfarin. Talk with your health care provider or your pharmacist before starting or stopping any new medicines. This includes roto-jzj-zadside vitamins, dietary supplements, herbal medicines, and pain medicines. Your warfarin dosage may need to be adjusted. ??? Some common zqvm-jzs-aervqpx medicines that may increase the risk of [...] cooked. ??? Collards, raw or cooked. ??? Maldivian chard, raw or cooked. ??? Mustard greens, raw or cooked. ??? Turnip greens, raw or cooked. ??? Parsley, raw. ??? Broccoli, cooked. ??? Noodles, eggs, and spinach, enriched. ??? Mcclure sprouts, raw or cooked. ??? Beet greens, [...] diet. ??? You start or stop any spok-xgp-cirfgzj medicine, prescription medicine, or dietary supplement. ??? [...] Reviewed: 12/29/2016 Elsevier Patient Education ? 2020 [employer] Hematoma A hematoma is a collection [...] health care provider. General instructions ??? Take htpp-tmi-jnktteu and prescription medicines only as told by [...] 05/17/2005 Document Revised: 03/08/2019 Document Reviewed: 03/08/2019 [employer] Patient Education ? 2020 [employer] CIGARETTE SMOKING: The facts are clear, cigarette smoking will shorten your life. Smoking can cause many illnesses along the way. As a healthcare provider, we recommend that you stop smoking. Assistance with quitting is available by contacting 9-472-QEQU-NOW. This is a free resource providing counseling, [...] Be sure to sign up for the [facility] patient portal, which gives you 09/05 access to your medical information ??? including these discharge instructions ??? using your computer, smartphone, or tablet. Just go to Spotster to get started. Questions? Call . [facility] would like to thank you for allowing us to assist you with your healthcare needs. MICHELE Skaggs JUDY D, (or hvac sales representative) have received the above patient education materials/instructions and have verbalized understanding: Patient Signature _ Date/Time Patient Technical Support Professional Signature (if needed) Date/Time Clinician/Hospital Technical Support Professional Signature (if needed) Date/Time Electronically signed by Interface, [facility] Conversion Film Inspector Cerner at 02/04/2023 2:01 PM CDT documented in this encounter Plan of Treatment Not on file documented as of this encounter Visit Diagnoses Not on filedocumented in this encounter Care Teams Manager Enterprise Content Management Relationship Specialty Start Date End Date Jay Howell MD [address] [place] [phone] PCP - General Emergency Medicine 11/12/23 documented as of this encounter
--- OUTSIDE RECORDS SUMMARY | 2025-08-07 08:53 | XMS_ITS | Encounter Summary ---
Author Organization [employer] ([place], [place], [place], [place]) Address [address] [place] [address] Care Team Providers Care Dimpling Machine Operator Name Role Phone Jay Howell MD Primary Care Provider [phone] Encounter Details Date Type Department Care Team (Late st Contact Info) Description 09/01/2020 Transcribed Document [facility] [place] [address] [place] [address] ProviderJessie MD [address] [place] [address] Social History Tobacco Use Types Packs/Day Years Used Date Smoking Tobacco: Never Assessed Comments Unknown Sex and Gender Information Value Date Recorded Sex Assigned at Not on file Legal Sex Female 7:30 PM CDT Gender Identity Not on file Sexual Orientation Not on file documented as of this encounter Miscellaneous Notes * Cerner Conversion Note - Jessie Yuen MD - 09/01/2020 1:19 PM DRYWALL BOARDHANGER Final Discharge Planning Entered On: 09/01/2020 13:20 EST Performed On: 09/01/2020 13:19 EST by KAVITA PELLETIER RN-Director Marketing Final Discharge Planning Discharge Arrangements : Patient Post-Acute Information Patient Name: SKYLER MONTOYA Gender: Female : [birth year] Age: 79 Years [place] Referral(s): Service: Organization: Business Address: Phone Number: [address], [address] Patient Offered Choice/Affiliations Explained : [...] Services (Related/SOC within 3 days)- KAVITA PELLETIER RN-Director Marketing - 09/01/2020 13:19 EST Final Narrative Note Final Narrative Note : INR-1.4. Pt will dc home today on Lovenox to bridge Coumadin. Orders for HH to INR sent to [facility] and hui jauregui in intake and of pt's dc home today. F/u appts scheduled with PCP, Vasc, and ID. No other CM needs noted. KAVITA PELLETIER RN-Director Marketing - 09/01/2020 13:19 EST documented in this encounter Plan of Treatment Not on file documented as of this encounter Visit Diagnoses Not on filedocumented in this encounter Care Teams Dimpling Machine Operator Relationship Specialty Start Date End Date Jay Howell MD [address] [place] [phone] PCP - General Emergency Medicine 11/12/23 documented as of this encounter
--- OUTSIDE RECORDS SUMMARY | 2025-08-07 08:53 | XMS_ITS | Encounter Summary ---
Author Organization [employer] ([place], [place], [place], [place]) Address [address] [place] [address] Care Team Providers Care Cascade Operator Name Role Phone Jay Howell MD Primary Care Provider [phone] Encounter Details Date Type Department Care Team (Late st Contact Info) Description 12/12/2018 Transcribed Document [facility] [place] Family Medicine [address] [place] [address] ProviderJessie MD [address] [place] [address] Social History Tobacco Use Types Packs/Day Years Used Date Smoking Tobacco: Never Assessed Comments Unknown Sex and Gender Information Value Date Recorded Sex Assigned at Not on file Legal Sex Female 7:30 PM CDT Gender Identity Not on file Sexual Orientation Not on file documented as of this encounter Miscellaneous Notes * Cerner Conversion Note - Historical ProviderMD - 12/12/2018 8:58 PM NET DEVELOPER ARCHITECT ED Triage Entered On: 12/12/2018 21:20 EST Performed On: 12/12/2018 21:18 EST by LUCINDA FOFANA RN ED Triage Across the Room Triage Date/Time : 12/12/2018 21:18 EST Chief Complaint : pt c/o mscp x 2 hours rad to neck & L arm. reports seen bt card in [place] for same earlier this week, reports she needs a cath LUCINDA FOFANA RN - 12/12/2018 21:18 EST DCP GENERIC CODE Tracking Acuity : 2 - Emergent Tracking Group : [facility] ED LUCINDA FOFANA RN [...] 21:20:38 EST) Problems(Active) Apnea, sleep (SNOMED CT :764569250 ) Name of Problem: Apnea, sleep ; Recorder: JUAN LUIS GIL RN; Confirmation: Confirmed ; Classification: Medical ; Code: [id number] ; Contributor System: PowerChart ; Last Updated: 11/12/2014 10:12 EST ; Life Cycle Date: 11/12/2014 ; Life Cycle Status: Active ; Vocabulary: SNOMED CT Arthritis (SNOMED CT :2583637 ) Name of Problem: Arthritis ; Recorder: KENYON CHAMBERS RN; Confirmation: Confirmed ; Classification: Medical ; Code: 8774110 ; Contributor System: PowerChart ; Last Updated: 04/10/2016 8:04 EDT ; Life Cycle Date: 08/13/2013 ; Life Cycle Status: Active ; Vocabulary: SNOMED CT Atrial fibrillation with RVR (SNOMED CT :1989050158 ) Name of Problem: Atrial fibrillation with RVR ; Recorder: SANG RICO APR; Confirmation: Confirmed ; Classification: Medical ; Code: [id number] ; Contributor System: PowerChart ; Last Updated: 04/10/2016 8:05 EDT ; Life Cycle Date: 04/10/2016 ; Life Cycle Status: Active ; Responsible Provider: SANG RICO APR; Vocabulary: SNOMED CT Blood clot (SNOMED CT :651143100 ) Name of Problem: Blood clot ; Recorder: KENYON CHAMBERS RN; Confirmation: Confirmed ; Classification: Patient Stated ; Code: 230165166 ; Contributor System: PowerChart ; Last Updated: [...] Vocabulary: Patient Care Chest pain (SNOMED CT :41878082 ) Name of Problem: Chest pain ; Recorder: SANG RICO APR; Confirmation: Complaint of ; Classification: Medical ; Code: 08931139 ; Contributor System: PowerChart ; Last Updated: 04/10/2016 8:05 EDT ; Life Cycle Status: Active ; Responsible Provider: SANG RICO APR; Vocabulary: SNOMED CT Chronic anticoagulation (SNOMED CT :397858619 ) Name of Problem: Chronic anticoagulation ; Recorder: SANG RICO APR; Confirmation: Confirmed ; Classification: Medical ; Code: 367016235 ; Contributor System: PowerChart ; Last Updated: 04/10/2016 8:05 EDT ; Life Cycle Date: 04/10/2016 ; Life Cycle Status: Active ; Responsible Provider: SANG RICO APR; Vocabulary: SNOMED CT Clotting disorder (SNOMED CT :062698046 ) Name of Problem: Clotting disorder ; Recorder: KENYON CHAMBERS RN; Confirmation: Confirmed ; Classification: Patient Stated ; Code: 123914193 ; Contributor System: PowerChart ; Last Updated: 03/28/2014 19:29 EDT ; Life Cycle Date: 08/13/2013 ; Life Cycle Status: Active ; Vocabulary: SNOMED CT COPD (SNOMED CT :67293820 ) Name of Problem: COPD ; Recorder: KENYON CHAMBERS RN; Confirmation: Confirmed ; Classification: Medical ; Code: 05988906 ; Contributor System: PowerChart ; Last Updated: 04/10/2016 8:03 EDT ; Life Cycle Date: 08/13/2013 ; Life Cycle Status: Active ; Vocabulary: SNOMED CT Coronary artery disease (SNOMED CT :8349787161 ) Name of Problem: Coronary artery disease ; Recorder: KENYON CHAMBERS RN; Confirmation: Confirmed ; Classification: Medical ; Code: 0520779138 ; Contributor System: PowerChart ; Last Updated: 04/10/2016 8:03 EDT ; Life Cycle Date: 08/13/2013 ; Life Cycle Status: Active ; Vocabulary: SNOMED CT Diabetes mellitus (SNOMED CT :566518439 ) Name of Problem: Diabetes mellitus ; Recorder: KENYON CHAMBERS RN; Confirmation: Confirmed ; Classification: Medical ; Code: 967708946 ; Contributor System: PowerChart ; Last Updated: 04/10/2016 8:04 EDT ; Life Cycle Date: 08/13/2013 ; Life Cycle Status: Active ; Vocabulary: SNOMED CT Emphysema (SNOMED CT :181015736 ) Name of Problem: Emphysema ; Recorder: JUAN LUIS GIL RN; Confirmation: Confirmed ; Classification: Medical ; Code: 850604914 ; Contributor System: PowerChart ; Last Updated: 11/12/2014 10:11 EST ; Life Cycle Date: 11/12/2014 ; Life Cycle Status: Active ; Vocabulary: SNOMED CT GERD - Gastro-esophageal reflux disease (SNOMED CT :5088780230 ) Name of Problem: GERD - Gastro-esophageal reflux disease ; Recorder: KENYON CHAMBERS RN; Confirmation: Confirmed ; Classification: Medical ; Code: 4765190266 ; Contributor System: PowerChart ; Last Updated: [...] Patient Care High blood pressure (SNOMED CT :43287365 ) Name of Problem: High blood pressure ; Recorder: KENYON CHAMBERS RN; Confirmation: Confirmed ; Classification: Medical ; Code: 99783080 ; Contributor System: ZoondyChart ; Last Updated: 04/10/2016 8:03 EDT ; Life Cycle Date: 08/13/2013 ; Life Cycle Status: Active ; Vocabulary: SNOMED CT Hx of pulmonary embolus (SNOMED CT :653245622 ) Name of Problem: Hx of pulmonary embolus ; Recorder: SANG RICO APR; Confirmation: Confirmed ; Classification: Medical ; Code: 607700585 ; Contributor System: PowerChart ; Last Updated: 04/10/2016 8:05 EDT ; Life Cycle Date: 04/10/2016 ; Life Cycle Status: Active ; Responsible Provider: SANG RICO APR; Vocabulary: SNOMED CT Hyperlipidemia (SNOMED CT :34115772 ) Name of Problem: Hyperlipidemia ; Recorder: KENYON CHAMBERS RN; Confirmation: Confirmed ; Classification: Medical ; Code: 63248487 ; Contributor System: PowerChart ; Last Updated: 04/10/2016 8:03 EDT ; Life Cycle Date: 08/13/2013 ; Life Cycle Status: Active ; Vocabulary: SNOMED CT Multiple renal cysts (SNOMED CT :950060349 ) Name of Problem: Multiple renal cysts ; Recorder: KENYON CHAMBERS RN; Confirmation: Confirmed ; Classification: Medical ; Code: 996780987 ; Contributor System: PowerChart ; Last Updated: 04/10/2016 8:04 EDT ; Life Cycle Date: 08/13/2013 ; Life Cycle Status: Active ; Vocabulary: SNOMED CT Stented coronary artery (SNOMED CT :8381265162 ) Name of Problem: Stented coronary artery ; Recorder: KENYON CHAMBERS RN; Confirmation: Confirmed ; Classification: Medical ; Code: 5653999205 ; Contributor System: PowerChart ; Last Updated: 04/10/2016 8:03 EDT ; Life Cycle Date: 08/13/2013 ; Life Cycle Status: Active ; Vocabulary: SNOMED CT UTI - Urinary tract infection (SNOMED CT :7176612335 ) Name of Problem: UTI - Urinary tract infection ; Recorder: KENYON CHAMBERS RN; Confirmation: Confirmed ; Classification: Medical ; Code: 4541011217 ; Contributor System: PowerChart ; Last Updated: 04/10/2016 8:04 EDT ; Life Cycle Date: 08/13/2013 ; Life Cycle Status: Active ; Vocabulary: SNOMED CT Diagnoses(Active) Chest pain Date: 12/12/2018 ; Diagnosis Type: Reason For Visit ; Confirmation: Complaint of ; Clinical Dx: Chest pain ; Classification: Medical ; Clinical Service: Emergency medicine ; Code: PNED ; Probability: 0 ; Diagnosis Code: [id number] ED Height and Weight Height Source : Stated Height Entry Format : [place] Height, Feet : 5 ft(Converted to: 152 cm, 60 Inch) Height, Inches : 3 Inch(Converted to: 0 ft 3 Inch, 7.62 cm) Clinical Height : 160.02 cm Weight Source, ED : Standing scale Weight Entry Format : [place] Weight, Pounds : 161.7 lb Clinical Dosing Weight : 73.5 kg Body Surface Area (BSA) : 1.77 m2 Body Mass Index : 28.7 kg/m2 (HI) [place] Body Weight (IBW) : 52.02 kg LUCINDA FOFANA RN - 12/12/2018 21:18 EST Electronically signed by Sivan, [facility] Conversion Surgical Physician Assistant Cerner at 02/04/2023 1:58 PM CDT documented in this encounter Plan of Treatment Not on file documented as of this encounter Visit Diagnoses Not on filedocumented in this encounter Care Teams Cascade Operator Relationship Specialty Start Date End Date Jay Howell MD [address] [place] [phone] PCP - General Emergency Medicine 11/12/23 documented as of this encounter
--- OUTSIDE RECORDS SUMMARY | 2025-08-07 08:53 | XMS_ITS | Encounter Summary ---
Author Organization [employer] ([place], [place], [place], [place]) Address [address] [place] [address] Care Team Providers Care Electronics Engineering Professor Name Role Phone Jay Howell MD Primary Care Provider [phone] Encounter Details Date Type Department Care Team (Late st Contact Info) Description 09/01/2020 Transcribed Document [facility] [place] Family Medicine [address] [place] [address] ProviderJessie MD [address] [place] [address] Social History Tobacco Use Types Packs/Day [...] Jessie Yuen MD - 09/01/2020 2:[address] SUPERINTENDENT Patient Education Materials Follows: Negative Pressure Wound [...] bag. ??? Soap and water, or hand nurse assistant. ??? Wound cleanser or salt-water solution (saline). [...] and water are not available, use hand nurse assistant. 3. Set up a clean station for [...] and water are not available, use hand nurse assistant. Clean your wound ??? Wear gloves, protective [...] and water are not available, use hand nurse assistant. Apply new dressing ??? Wear gloves, protective [...] and water are not available, use hand nurse assistant. 8. Turn the pump back on. The sponge dressing should collapse. Do not change the settings on the machine without talking to a health care provider. 9. Replace the container in the pump that collects fluid if it is full. Replace the container per the sheep boner's instructions or at least once a week, [...] clamps are open. ??? Do not use nvxt-mgt-iqmhlnw medicated or antiseptic creams, sprays, liquids, or [...] 12/25/2012 Document Revised: 01/25/2020 Document Reviewed: 12/21/2019 [employer] Patient Education ? 2019 [employer] Hematology Hematoma A hematoma is a [...] health care provider. General instructions ??? Take eywd-mwc-ankqnyl and prescription medicines only as told by [...] 05/17/2005 Document Revised: 03/08/2019 Document Reviewed: 03/08/2019 [employer] Patient Education ? 2020 [employer] Infectious Disease Cellulitis, Adult Cellulitis is [...] these instructions at home: Medicines ??? Take lfat-bgg-nvdsmdv and prescription medicines only as told by [...] 03/21/2009 Document Revised: 02/22/2019 Document Reviewed: 02/22/2019 [employer] Patient Education ? 2020 [employer] Pharmacology What You Need to Know [...] other medicines or supplements? Many prescription and fesr-ebj-fuypcql medicines can interfere with warfarin. Talk with your health care provider or your pharmacist before starting or stopping any new medicines. This includes yeky-eqv-sbmppat vitamins, dietary supplements, herbal medicines, and pain medicines. Your warfarin dosage may need to be adjusted. ??? Some common lknt-ugg-sfxawzn medicines that may increase the risk of [...] that you work with a diet and activities specialist (dietitian). ??? Vitamin K decreases the [...] cooked. ??? Collards, raw or cooked. ??? Malaysian chard, raw or cooked. ??? Mustard greens, raw or cooked. ??? Turnip greens, raw or cooked. ??? Parsley, raw. ??? Broccoli, cooked. ??? Noodles, eggs, and spinach, enriched. ??? [place] sprouts, raw or cooked. ??? Beet greens, [...] diet. ??? You start or stop any uvsa-xbg-ghppeap medicine, prescription medicine, or dietary supplement. ??? [...] 10/03/2006 Document Revised: 05/16/2018 Document Reviewed: 12/29/2016 [employer] Patient Education ? 2020 [employer]. documented in this encounter Plan of Treatment Not on file documented as of this encounter Visit Diagnoses Not on filedocumented in this encounter Care Teams Electronics Engineering Professor Relationship Specialty Start Date End Date Jay Howell MD [address] [place] [phone] PCP - General Emergency Medicine 11/12/23 documented as of this encounter
--- OUTSIDE RECORDS SUMMARY | 2025-08-07 08:53 | XMS_ITS | Encounter Summary ---
Author Organization [employer] ([place], [place], [place], [place]) Address [address] [place] [address] Care Team Providers Care Account Services Representative Name Role Phone Jay Howell MD Primary Care Provider [phone] Encounter Details Date Type Department Care Team (Late st Contact Info) Description 12/12/2018 Transcribed Document [facility] [place] [address] [place] [address] ProviderJessie MD [address] [place] [address] Social History Tobacco Use Types Packs/Day Years Used Date Smoking Tobacco: Never Assessed Comments Unknown Sex and Gender Information Value Date Recorded Sex Assigned at Not on file Legal Sex Female 7:30 PM CDT Gender Identity Not on file Sexual Orientation Not on file documented as of this encounter Miscellaneous Notes * Cerner Conversion Note - Historical ProviderMD - 12/12/2018 9:44 PM SENIOR STAFF PSYCHOLOGIST Patient: SKYLER MONTOYA Age: 77 years Sex: [...] L arm. reports seen bt card in [place] for same earlier this week, reports she [...] and was advised to follow-up with her business services coordinator. She had labs done this morning, but [...] wants to go home and see her business services coordinator tomorrow. Review of Systems Additional review of [...] normal sinus rhythm, No ST changes, normal LA & QRS intervals, EP Interp. Results review: [...] % 36.4 % Lymph # 2.22 x10(3)/uL [place] % 10.7 % HI [place] # 0.65 K/uL Eos % 0.0 % [...] evaluation at any time. Advised follow-up with business services coordinator in the morning and return to the closest ER for any recurrence or worsening of symptoms.. Impression and Plan Diagnosis Chest pain - Discharge, Medical Plan Condition: Stable. Patient was given the following educational materials: Angina Pectoris. Follow up with: TARA CHEN Within 2 to 3 days; Follow-up with your business services coordinator in the morning. Return to the closest emergency department for any acute new concerns or recurrence of symptoms. Within in AM. Counseled: Patient, Family, Regarding diagnosis, Regarding diagnostic results, Regarding treatment plan, Patient indicated understanding of instructions. documented in this encounter Plan of Treatment Not on file documented as of this encounter Visit Diagnoses Not on filedocumented in this encounter Care Teams Account Services Representative Relationship Specialty Start Date End Date Jay Howell MD [address] [place] [phone] PCP - General Emergency Medicine 11/12/23 documented as of this encounter
[2025-08-07 08:54] LABS: Hematocrit 23.8 % (37.0-47.0); Hemoglobin 8.0 g/dL (12.2-16.2); Immature Granulocytes % 0.5 %; Mean Corpuscular HGB Conc 33.6 g/dL (31.8-35.4); Mean Corpuscular Hemoglobin 37.0 pg (27.0-31.2); Mean Corpuscular Volume 110.2 fl (81-99); Nucleated Red Blood Cells % 0 %; Platelet Count 60 K/mm3 (142-424); Red Blood Count 2.16 M/mm3 (4.20-5.40); Red Cell Distribution Width-SD 59.6 fL; White Blood Count 4.4 K/mm3 (4.8-10.8)
--- OUTSIDE RECORDS SUMMARY | 2025-08-07 08:54 | XMS_ITS | Encounter Summary ---
Author Organization [employer] ([place], [place], [place], [place]) Address [address] [place] [address] Care Team Providers Care Transportation Security Officer Name Role Phone Jay Howell MD Primary Care Provider [phone] Encounter Details Date Type Department Care Team (Late st Contact Info) Description 03/19/[address] [facility] [place] [facility] [place] [address] ProviderJessie MD [address] [place], [place] [address] Social History Tobacco Use Types Packs/Day Years [...] Pain Scale Used : 0-10 Scale Sarah Vviar Non Emp RN - 03/19/2021 2:29 EDT Pain Scale Intensity : 3 Sarah Vivar P, Non Emp RN - 03/19/2021 2:29 EDT Image 4 - Images currently included in the form version of this document have not been included in the text rendition version of the form. Electronically signed by Sivan, [facility] Conversion Director Energy Cerner at 02/04/2023 2:13 PM CDT documented in this encounter Plan of Treatment Not on file documented as of this encounter Visit Diagnoses Not on filedocumented in this encounter Care Teams Transportation Security Officer Relationship Specialty Start Date End Date Jay Howell MD [address] [place] [phone] PCP - General Emergency Medicine 11/12/23 documented as of this encounter
--- OUTSIDE RECORDS SUMMARY | 2025-08-07 08:54 | XMS_ITS | Encounter Summary ---
Author Organization [employer] ([place], [place], [place], [place]) Address [address] [place] [address] Care Team Providers Care Student Services Advisor Name Role Phone Jay Howell MD Primary Care Provider [phone] Encounter Details Date Type Department Care Team (Late st Contact Info) Description 03/19/2021 Transcribed Document [facility] [place] [address] [place] [address] ProviderJessie MD [address] [place] [address] Social History Tobacco Use Types Packs/Day [...] Yuen MD - 03/19/2021 2:50 PM CDT [facility] [place] [address] SKYLER MONTOYA :1940 Visit Time:03/17/2021 Your Visit Summary Your Care Team Admitting Physician - MARIA ELENA DAVALOS MD-[facility] Attending Physician - SARAH CONTEH MD [...] or [place] ( Hand Surgery) on d/c. [phone] Activity: Discharge Activity: Activity as tolerated Diet: Discharge Diet: Heart healthy diet Driving Restriction: Do Not Drive due to fainting episode until your doctor says you can Follow-Up Appointments Follow Up with ANDERSON CARRASCO MD When Within 3 to 5 days Comments for ortho eval for fracture wrist Where: [address] [place] [address]- Follow Up with WOO JOHNSTON When Within 2 to 4 weeks Where: [address] [place] [address] [place] [address]- Business (1) Follow Up with JEFFERSON MENDOZA When Within 6 weeks Comments Patient should call for a follow up appointment with [facility] Neurology. Where: [address] [place] [address]- Business (1) Medications What How Much When [...] activities are safe for you. ??? Take sxxu-mbz-poovgkv and prescription medicines only as told by [...] provider. Document Revised: 07/31/2018 Document Reviewed: 03/26/2017 [employer] Patient Education ?? 2020 [employer] Near-Syncope Near-syncope is when you suddenly [...] these instructions at home: Medicines ??? Take okhu-zqj-ngalqwc and prescription medicines only as told by [...] Reviewed: 08/22/2019 [employer] Patient Education ?? 2020 [employer]. Emergency Awareness and Preventative Care STROKE is [...] Assistance with quitting is available by contacting 3-216-HMZJ-NOW. This is a free resource providing counseling, [...] range between ( 0.0 and 7.0 ) [place] #: 0.59 K/uL -- Normal range between ( 0.16 and 1.00 ) Eos #: 0.00 x10(3)/uL -- Normal range between ( 0.00 and 0.80 ) [place] %: 8.9 % -- Normal range between [...] /LPF Urine Bilirubin Dipstick: Negative Urine Specific [place]: 1.015 -- Normal range between ( 1.005 [...] was given the opportunity to ask questions. Patient/Terra Cotta Mason Name: Patient/Terra Cotta Mason Signature: Relationship to Patient: Clinician/Hospital Terra Cotta Mason Signature: Date: Electronically signed by Sivan, [facility] Conversion Clinical Trials Nurse Cerner at 02/04/2023 2:18 PM CDT documented in this encounter Plan of Treatment Not on file documented as of this encounter Visit Diagnoses Not on filedocumented in this encounter Care Teams Student Services Advisor Relationship Specialty Start Date End Date Jay Howell MD [address] [place] [phone] PCP - General Emergency Medicine 11/12/23 documented as of this encounter
--- OUTSIDE RECORDS SUMMARY | 2025-08-07 08:54 | XMS_ITS | Encounter Summary ---
Author Organization [employer] ([place], [place], [place], [place]) Address [address] [place] [address] Care Team Providers Care Ammonia Nitrate Operator Name Role Phone Jay Howell MD Primary Care Provider [phone] Encounter Details Date Type Department Care Team (Late st Contact Info) Description 07/18/2021 Transcribed Document [facility] [place] [address] [place] [address] ProviderJessie MD [address] [place], [place] [address] Social History Tobacco Use Types Packs/Day Years [...] on filedocumented in this encounter Care Teams Ammonia Nitrate Operator Relationship Specialty Start Date End Date Jay Howell MD [address] [place] [phone] PCP - General Emergency Medicine 11/12/23 documented as of this encounter
--- OUTSIDE RECORDS SUMMARY | 2025-08-07 08:54 | XMS_ITS | Encounter Summary ---
Author Organization [id number] ([place], [place], [place], [place]) Address [address] [place] [address] Care Team Providers Care Captain Airline Pilot Name Role Phone Jay Howell MD Primary Care Provider [phone] Encounter Details Date Type Department Care Team (Late st Contact Info) Description 03/19/[address] [facility] [place] [facility] [place] [address] ProviderJessie MD [address] [place], [place] [address] Social History Tobacco Use Types Packs/Day Years Used Date Smoking Tobacco: Never Assessed Comments Unknown Sex and Gender Information Value Date Recorded Sex Assigned at Not on file Legal Sex Female 7:30 PM CDT Gender Identity Not on file Sexual Orientation Not on file documented as of this encounter Miscellaneous Notes * Cerner Conversion Note - Historical ProviderMD - 03/19/2021 2:00 AM CDT Inspector Brake Lining Details Entered On: 03/19/2021 2:31 EDT Performed [...] 03/19/2021 2:31 EDT Electronically signed by Sivan [facility] Conversion Mat Making Machine Tender Cerner at 02/04/2023 2:11 PM CDT documented in this encounter Plan of Treatment Not on file documented as of this encounter Visit Diagnoses Not on filedocumented in this encounter Care Teams Captain Airline Pilot Relationship Specialty Start Date End Date Jay Howell MD [address] [place] [phone] PCP - General Emergency Medicine 11/12/23 documented as of this encounter
--- OUTSIDE RECORDS SUMMARY | 2025-08-07 08:54 | XMS_ITS | Encounter Summary ---
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 femur repair. Appendectomy ([id number]). uterine suspension. Hysterectomy ([id number]). back surgury. Cholecystectomy ([id number]). Hip replacement ([id number]). cataract surgury.. Family history: Cardiomyopathy Child Stroke [...] EDT Height Source Stated Height Entry Format Inman Height/Length, SOMALI (ft) 5 ft Height/Length SOMALI 3 Inch CLINICALHEIGHT 160.02 cm [place] Body Weight 52.02 kg Weight Source, ED Critical estimated dosing weight Weight Entry Format Inman Weight Kiswahili lb 154 lb CLINICALWEIGHT 70 kg Body [...] C-SSRS: ED Clinical Reconciliation: ED Isolation: ED translator deaf: Lipase Level: PT/INR Prothrombin Time: PTT: ProBNP: Saline Lock Insert: Troponin I Ultra: Troponin I Ultra: aspirin: 324 mg, Chew, 1-Time iopamidol: 75 mL, IV Push, ADHOC. Electrocardiogram: Time 07/18/2021 15:21:00, rate 57, normal sinus rhythm, No ST changes, no ectopy, normal NC & QRS intervals, EP Interp. Electrocardiogram: Time 07/18/2021 19:13:00, rate 53, normal sinus rhythm, No ST changes, no ectopy, normal NC & QRS intervals, EP Interp. potline monitor: Normal sinus rhythm. Results review: All [...] % 30.3 % Lymph # 1.46 x10(3)/uL Nicholas % 10.4 % HI Nicholas # 0.50 K/uL Eos % 0.0 % Eos # 0.00 x10(3)/uL Baso % 0.4 % Baso # 0.02 x10(3)/uL Slide Review No IG# 0.03 x10(3)/uL IG% 0.60 % PT 39.6 Second(s) HI INR 4.1 HI PTT 44.9 Second(s) HI . Radiology results: Radiology Results (Last 48 hours) [id number] -- 07/18/2021 15:00 CR Chest 1 Vw [...] of instructions. Notes: I certify that the MLP/LINOLEUM TILE FLOOR LAYER performed the services as delegated. . documented in this encounter Plan of Treatment Not on file documented as of this encounter Visit Diagnoses Not on filedocumented in this encounter Care Teams Legal Billing Coordinator Relationship Specialty Start Date End Date Jay Howell MD [address] [place] [phone] PCP - General Emergency Medicine 11/12/23 documented as of this encounter
--- OUTSIDE RECORDS SUMMARY | 2025-08-07 08:54 | XMS_ITS | Encounter Summary ---
Author Organization [employer] ([place], [place], [place], [place]) Address [address] [place] [address] Care Team Providers Care Welding Foreman Name Role Phone Jay Howell MD Primary Care Provider [phone] Encounter Details Date Type Department Care Team (Late st Contact Info) Description 07/18/2021 Transcribed Document [facility] [place] Medicine [address] [place] [address] ProviderJessie MD [address] [place], [place] [phone] Social History Tobacco Use Types Packs/Day Years Used Date Smoking Tobacco: Never Assessed Comments Unknown Sex and Gender Information Value Date Recorded Sex Assigned at Not on file Legal Sex Female 7:30 PM CDT Gender Identity Not on file Sexual Orientation Not on file documented as of this encounter Miscellaneous Notes * Cerner Conversion Note - Jessie ProviderMD - 07/18/2021 8:22 PM CDT [facility] [place] [address] SKYLER MONTOYA :1940 Visit Time:07/18/2021 Your Visit [...] different. Where: [address] [place], [place] [phone]- Business (1) Allergies Macrodantin morphine (rash, rash) [...] range between ( 0.0 and 7.0 ) Mckean #: 0.50 K/uL -- Normal range between ( 0.16 and 1.00 ) Eos #: 0.00 x10(3)/uL -- Normal range between ( 0.00 and 0.80 ) Mckean %: 10.4 % -- Normal range between [...] these instructions at home: Medicines ??? Take qhmc-amv-fizgstl and prescription medicines only as told by [...] provider. Document Revised: 04/05/2019 Document Reviewed: 04/05/2019 [employer] Patient Education ?? 2020 [employer] Newsletter. Emergency Awareness and Preventative Care STROKE is [...] Assistance with quitting is available by contacting 4-641-VCCV-NOW. This is a free resource providing counseling, [...] was given the opportunity to ask questions. Patient/Plate Worker Helper Name: Patient/Plate Worker Helper Signature: Relationship to Patient: Clinician/Hospital Plate Worker Helper Signature: Please Provide a Telephone Number Where You Can Be Reached: Is it Permissible To Leave a Message? Date: Electronically signed by Gayle Finnegan Conversion Field Support Representative Wilmaner at 02/04/2023 2:01 PM CDT documented in this encounter Plan of Treatment Not on file documented as of this encounter Visit Diagnoses Not on filedocumented in this encounter Care Teams Welding Foreman Relationship Specialty Start Date End Date Jay Howell MD [address] [place] [phone] PCP - General Emergency Medicine 11/12/23 documented as of this encounter
--- OUTSIDE RECORDS SUMMARY | 2025-08-07 08:54 | XMS_ITS | Encounter Summary ---
Author Organization [employer] ([place], [place], [place], [place]) Address [address] [place] [address] Care Team Providers Care Metal Dealer Name Role Phone Jay Howell MD Primary Care Provider [phone] Encounter Details Date Type Department Care Team (Late st Contact Info) Description 07/18/2021 Transcribed Document [facility] Family Medicine [address] [place] [address] ProviderJessie MD [address] [place] [address] [phone] Social History Tobacco Use Types Packs/Day Years [...] filedocumented in this encounter Care Teams Metal Dealer Relationship Specialty Start Date End Date Jay Howell MD [address] [place] [phone] PCP - General Emergency Medicine 11/12/23 documented as of this encounter
--- OUTSIDE RECORDS SUMMARY | 2025-08-07 08:54 | XMS_ITS | Encounter Summary ---
Author Organization [employer] ([place], [place], [place], [place]) Address [address] [place] [address] Care Team Providers Care Core Worker Name Role Phone Jay Howell MD Primary Care Provider [phone] Encounter Details Date Type Department Care Team (Late st Contact Info) Description 03/19/2021 Transcribed Document [facility] [place] [address] [place] [address] ProviderJessie MD [address] [place] [address] Social History Tobacco Use Types Packs/Day Years [...] 2. Calcification of the vertebral origins with xzjq-hf-xlhacmim stenosis. 3. Extensive vascular calcification. 4. Severe [...] up with hand surgery next week, her medical malpractice paralegal in 2-4 weeks and neurologist 4-8 weeks. [...] [facility]er or [facility] on March 23 or [facility] - Within 6 weeks Discharge Medications [...] 03/17/21 10:56:00 EDT, Cardiac Diet, 60 gm carbs:[phone] george, Isolation: Standard Precautions, Instructions: Diabetic Diet Patient Discharge Summary Orders Discharge Follow Up Instructions: Follow Up Instructions: f/u Dr. Comer or Anabell ( Hand Surgery) on d/c. [phone] Activity: Discharge Activity: Activity as tolerated Diet: [...] on filedocumented in this encounter Care Teams Core Worker Relationship Specialty Start Date End Date Jay Howell MD [address] [place] [phone] PCP - General Emergency Medicine 11/12/23 documented as of this encounter
--- OUTSIDE RECORDS SUMMARY | 2025-08-07 08:54 | XMS_ITS | Encounter Summary ---
Author Organization [employer] ([place], [place], [place], [place]) Address [address] [place] [address] Care Team Providers Care Manager Energy Name Role Phone Jay Howell MD Primary Care Provider [phone] Encounter Details Date Type Department Care Team (Late st Contact Info) Description 03/19/2021 Transcribed Document [facility] [place] Family Medicine [address] [place] [address] ProviderJessie MD [address] [place] [address] Social History Tobacco Use Types Packs/Day Years [...] filedocumented in this encounter Care Teams Manager Energy Relationship Specialty Start Date End Date Jay Howell MD [address] [place] [phone] PCP - General Emergency Medicine 11/12/23 documented as of this encounter
--- OUTSIDE RECORDS SUMMARY | 2025-08-07 08:54 | XMS_ITS | Encounter Summary ---
Author Organization [employer] ([place], [place], [place], [place]) Address [address] [place] [address] Care Team Providers Care Wheel Lacer And Truer Name Role Phone Jay Howell MD Primary Care Provider [phone] Encounter Details Date Type Department Care Team (Late st Contact Info) Description 03/19/2021 Transcribed Document [facility] [place] [facility] [place] [address] ProviderJessie MD [address] [place], [place] [address] Social History Tobacco Use Types Packs/Day Years [...] 2. Calcification of the vertebral origins with cyxu-rj-uwybrobo stenosis. 3. Extensive vascular calcification. 4. Severe [...] difficult. The CTA also shows bilateral proximal ACCOUNT COLLECTOR stenoses. The differential could include one or [...] on filedocumented in this encounter Care Teams Wheel Lacer And Truer Relationship Specialty Start Date End Date Jay Howell MD [address] [place] [phone] PCP - General Emergency Medicine 11/12/23 documented as of this encounter
--- OUTSIDE RECORDS SUMMARY | 2025-08-07 08:54 | XMS_ITS | Encounter Summary ---
Author Organization [employer] ([place], [place], [place], [place]) Address [address] [place] [address] Care Team Providers Care International Marketing Coordinator Name Role Phone Jay Howell MD Primary Care Provider [phone] Encounter Details Date Type Department Care Team (Late st Contact Info) Description 03/19/2021 Transcribed Document [facility] [place] Family Medicine [address] [place] [address] ProviderJessie MD [address] [place], [place] [phone] Social History Tobacco Use Types Packs/Day Years [...] EDT Electronically signed by Gayle Finnegan Conversion Therapeutic Activities Services Worker Cerner at 02/04/2023 2:10 PM CDT documented in this encounter Plan of Treatment Not on file documented as of this encounter Visit Diagnoses Not on filedocumented in this encounter Care Teams International Marketing Coordinator Relationship Specialty Start Date End Date Jay Howell MD [address] [place] [phone] PCP - General Emergency Medicine 11/12/23 documented as of this encounter
--- OUTSIDE RECORDS SUMMARY | 2025-08-07 08:54 | XMS_ITS | Encounter Summary ---
Author Organization [employer] ([place], [place], [place], [place]) Address [address] [place] [address] Care Team Providers Care Vac Press Operator Name Role Phone Jay Howell MD Primary Care Provider [phone] Encounter Details Date Type Department Care Team (Late st Contact Info) Description 07/18/2021 Transcribed Document [facility] [place] [address] [place] [address] ProviderJessie MD [address] [place] [address] [phone] Social History Tobacco Use Types Packs/Day Years [...] X1 Electronically signed by Gayle Finnegan Conversion Power Plant Operator Apprentice Cerner at 02/04/2023 2:06 PM CDT documented in this encounter Plan of Treatment Not on file documented as of this encounter Visit Diagnoses Not on filedocumented in this encounter Care Teams Vac Press Operator Relationship Specialty Start Date End Date Jay Howell MD [address] [place] [phone] PCP - General Emergency Medicine 11/12/23 documented as of this encounter
--- OUTSIDE RECORDS SUMMARY | 2025-08-07 08:54 | XMS_ITS | Encounter Summary ---
Author Organization [employer] ([place], [place], [place], [place]) Address [address] [place] [address] Care Team Providers Care Sales Clerk Name Role Phone Jay Howell MD Primary Care Provider [phone] Encounter Details Date Type Department Care Team (Late st Contact Info) Description 07/18/2021 Transcribed Document [facility] [place] [facility] [place] [address] ProviderJessie MD [address] [place], [place] [phone] Social History Tobacco Use Types Packs/Day Years [...] 15:12:21 EDT) Problems(Active) Apnea, sleep (SNOMED CT :425018050 ) Name of Problem: Apnea, sleep ; Recorder: JUAN LUIS GIL RN; Confirmation: Confirmed ; Classification: Medical ; Code: 246103259 ; Contributor System: PowerChart ; Last Updated: 11/12/2014 10:12 EST ; Life Cycle Date: 11/12/2014 ; Life Cycle Status: Active ; Vocabulary: SNOMED CT Arthritis (SNOMED CT :0936456 ) Name of Problem: Arthritis ; Recorder: KENYON CHAMBERS RN; Confirmation: Confirmed ; Classification: Medical ; Code: 6042946 ; Contributor System: PowerChart ; Last Updated: 04/10/2016 8:04 EDT ; Life Cycle Date: 08/13/2013 ; Life Cycle Status: Active ; Vocabulary: SNOMED CT Atrial fibrillation with RVR (SNOMED CT :1418943642 ) Name of Problem: Atrial fibrillation with RVR ; Recorder: SANG RICO APRN; Confirmation: Confirmed ; Classification: Medical ; Code: 9345582849 ; Contributor System: PowerChart ; Last Updated: 04/10/2016 8:05 EDT ; Life Cycle Date: 04/10/2016 ; Life Cycle Status: Active ; Responsible Provider: SANG RICO APRN; Vocabulary: SNOMED CT Blood clot (SNOMED CT :386483257 ) Name of Problem: Blood clot ; Recorder: KENYON CHAMBERS RN; Confirmation: Confirmed ; Classification: Patient Stated ; Code: 675014023 ; Contributor System: PowerChart ; Last Updated: [...] Vocabulary: Patient Care Chest pain (SNOMED CT :36812957 ) Name of Problem: Chest pain ; Recorder: SANG RICO APRN; Confirmation: Complaint of ; Classification: Medical ; Code: 80099465 ; Contributor System: PowerChart ; Last Updated: 04/10/2016 8:05 EDT ; Life Cycle Status: Active ; Responsible Provider: SANG RICO APRN; Vocabulary: SNOMED CT Chronic anticoagulation (SNOMED CT :325541096 ) Name of Problem: Chronic anticoagulation ; Recorder: SANG RICO APRN; Confirmation: Confirmed ; Classification: Medical ; Code: 960555031 ; Contributor System: [employer] - [employer] ; Last Updated: 04/10/2016 8:05 EDT ; Life Cycle Date: 04/10/2016 ; Life Cycle Status: Active ; Responsible Provider: SANG RICO APRN; Vocabulary: SNOMED CT Clotting disorder (SNOMED CT :533447298 ) Name of Problem: Clotting disorder ; Recorder: KENYON CHAMBERS RN; Confirmation: Confirmed ; Classification: Patient Stated ; Code: 079107951 ; Contributor System: PowerChart ; Last Updated: 03/28/2014 19:29 EDT ; Life Cycle Date: 08/13/2013 ; Life Cycle Status: Active ; Vocabulary: SNOMED CT COPD (SNOMED CT :67386378 ) Name of Problem: COPD ; Recorder: KENYON CHAMBERS RN; Confirmation: Confirmed ; Classification: Medical ; Code: 94994832 ; Contributor System: PowerChart ; Last Updated: 04/10/2016 8:03 EDT ; Life Cycle Date: 08/13/2013 ; Life Cycle Status: Active ; Vocabulary: SNOMED CT Coronary artery disease (SNOMED CT :6898641719 ) Name of Problem: Coronary artery disease ; Recorder: KENYON CHAMBERS RN; Confirmation: Confirmed ; Classification: Medical ; Code: 3421417493 ; Contributor System: [employer] ; Last Updated: 04/10/2016 8:03 EDT ; Life Cycle Date: 08/13/2013 ; Life Cycle Status: Active ; Vocabulary: SNOMED CT Diabetes mellitus (SNOMED CT :820568135 ) Name of Problem: Diabetes mellitus ; Recorder: KENYON CHAMBERS RN; Confirmation: Confirmed ; Classification: Medical ; Code: 143489283 ; Contributor System: [employer] - [employer] ; Last Updated: 04/10/2016 8:04 EDT ; Life Cycle Date: 08/13/2013 ; Life Cycle Status: Active ; Vocabulary: SNOMED CT Emphysema (SNOMED CT :153855161 ) Name of Problem: Emphysema ; Recorder: JUAN LUIS GIL RN; Confirmation: Confirmed ; Classification: Medical ; Code: 439149578 ; Contributor System: PowerChart ; Last Updated: 11/12/2014 10:11 EST ; Life Cycle Date: 11/12/2014 ; Life Cycle Status: Active ; Vocabulary: SNOMED CT GERD - Gastro-esophageal reflux disease (SNOMED CT :9291876117 ) Name of Problem: GERD - Gastro-esophageal reflux disease ; Recorder: KENYON CHAMBERS RN; Confirmation: Confirmed ; Classification: Medical ; Code: 8540883009 ; Contributor System: PowerChart ; Last Updated: [...] Patient Care High blood pressure (SNOMED CT :45571084 ) Name of Problem: High blood pressure ; Recorder: KENYON CHAMBERS RN; Confirmation: Confirmed ; Classification: Medical ; Code: 36912229 ; Contributor System: PowerChart ; Last Updated: 04/10/2016 8:03 EDT ; Life Cycle Date: 08/13/2013 ; Life Cycle Status: Active ; Vocabulary: SNOMED CT History of obstructive sleep apnea (IMO :10081093 ) Name of Problem: History of obstructive sleep apnea ; Recorder: SYSTEM, SYSTEM; Confirmation: Confirmed ; Classification: Medical ; Code: 99922570 ; Last Updated: 08/25/2020 18:21 EST ; Life Cycle Date: 08/25/2020 ; Life Cycle Status: Active ; Vocabulary: IMO Hx of pulmonary embolus (SNOMED CT :579577954 ) Name of Problem: Hx of pulmonary embolus ; Recorder: SANG RICO APRN; Confirmation: Confirmed ; Classification: Medical ; Code: 613782366 ; Contributor System: PowerChart ; Last Updated: 04/10/2016 8:05 EDT ; Life Cycle Date: 04/10/2016 ; Life Cycle Status: Active ; Responsible Provider: SANG RICO APRN; Vocabulary: SNOMED CT Hyperlipidemia (SNOMED CT :80791134 ) Name of Problem: Hyperlipidemia ; Recorder: KENYON CHAMBERS RN; Confirmation: Confirmed ; Classification: Medical ; Code: 57751156 ; Contributor System: PowerChart ; Last Updated: 04/10/2016 8:03 EDT ; Life Cycle Date: 08/13/2013 ; Life Cycle Status: Active ; Vocabulary: SNOMED CT Multiple renal cysts (SNOMED CT :290635069 ) Name of Problem: Multiple renal cysts ; Recorder: KENYON CHAMBERS RN; Confirmation: Confirmed ; Classification: Medical ; Code: 949439384 ; Contributor System: [employer] ; Last Updated: 04/10/2016 8:04 EDT ; Life Cycle Date: 08/13/2013 ; Life Cycle Status: Active ; Vocabulary: SNOMED CT Stented coronary artery (SNOMED CT :8831727747 ) Name of Problem: Stented coronary artery ; Recorder: KENYON CHAMBERS RN; Confirmation: Confirmed ; Classification: Medical ; Code: 1791941088 ; Contributor System: [employer] ; Last Updated: 04/10/2016 8:03 EDT ; Life Cycle Date: 08/13/2013 ; Life Cycle Status: Active ; Vocabulary: SNOMED CT Diagnoses(Active) Chest pain Date: 07/18/2021 ; Diagnosis Type: Reason For Visit ; Confirmation: Complaint of ; Clinical Dx: Chest pain ; Classification: Medical ; Clinical Service: Emergency medicine ; Code: PNED ; Probability: 0 ; Diagnosis Code: [id number] ED Height and Weight Height Source : Stated Height Entry Format : Blanch Height, Feet : 5 ft(Converted to: 152 cm, 60 Inch) Height, Inches : 3 Inch(Converted to: 0 ft 3 Inch, 7.62 cm) Clinical Height : 160.02 cm Weight Source, ED : Critical estimated dosing weight Weight Entry Format : Blanch Weight, Pounds : 154 lb Clinical Dosing Weight : 70 kg Body Surface Area (BSA) : 1.73 m2 Body Mass Index : 27.3 kg/m2 (HI) Sharon Body Weight (IBW) : 52.02 kg CHETAN [...] of the form. Electronically signed by [facility] Conversion Vessel Manager Cerner at 02/04/2023 2:06 PM CDT documented in this encounter Plan of Treatment Not on file documented as of this encounter Visit Diagnoses Not on filedocumented in this encounter Care Teams Sales Clerk Relationship Specialty Start Date End Date Jay Howell MD [address] [place] [phone] PCP - General Emergency Medicine 11/12/23 documented as of this encounter
--- OUTSIDE RECORDS SUMMARY | 2025-08-07 08:54 | XMS_ITS | Encounter Summary ---
Author Organization [employer] ([place], [place], [place], [place]) Address [address] [place] [address] Care Team Providers Care Workers Compensation Legal Secretary Name Role Phone Jay Howell MD Primary Care Provider [phone] Encounter Details Date Type Department Care Team (Late st Contact Info) Description 07/18/2021 Transcribed Document [facility] [place] [facility] [place] [address] ProviderJessie MD [address] [place], [place] [phone] Social History Tobacco Use Types Packs/Day Years [...] on filedocumented in this encounter Care Teams Workers Compensation Legal Secretary Relationship Specialty Start Date End Date Jay Howell MD [address] [place] [phone] PCP - General Emergency Medicine 11/12/23 documented as of this encounter
--- OUTSIDE RECORDS SUMMARY | 2025-08-07 08:54 | XMS_ITS | Encounter Summary ---
Author Organization [employer] ([place], [place], [place], [place]) Address [address] [place] [address] Care Team Providers Care Inspector Final Assembly Conveyor Line Name Role Phone Jay Howell MD Primary Care Provider [phone] Encounter Details Date Type Department Care Team (Late st Contact Info) Description 07/18/2021 Transcribed Document [facility] [place] [address] [place] [address] ProviderJessie MD [address] [place] [address] [phone] Social History Tobacco Use Types Packs/Day Years [...] 07/18/2021 8:15 PM CDT Electronically signed by [facility] Conversion Beverage Manager Cerner at 02/04/2023 2:03 PM CDT documented in this encounter Plan of Treatment Not on file documented as of this encounter Visit Diagnoses Not on filedocumented in this encounter Care Teams Inspector Final Assembly Conveyor Line Relationship Specialty Start Date End Date Jay Howell MD [address] [place] [phone] PCP - General Emergency Medicine 11/12/23 documented as of this encounter
--- OUTSIDE RECORDS SUMMARY | 2025-08-07 08:54 | XMS_ITS | Encounter Summary ---
Author Organization [employer] ([place], [place], [place], [place]) Address [address] [place] [address] Care Team Providers Care Survey And Mapping Technician Name Role Phone Jay Howell MD Primary Care Provider [phone] Encounter Details Date Type Department Care Team (Late st Contact Info) Description 07/18/2021 Transcribed Document [facility] [place] [facility] [place] [address] ProviderJessie MD [address] [place], [place] 172141 Social History Tobacco Use Types Packs/Day Years [...] Barrier : None Primary Language : Senegalese Any Spiritual/Cultural Needs or Requests : No [...] filedocumented in this encounter Care Teams Survey And Mapping Technician Relationship Specialty Start Date End Date Jay Howell MD [address] [place] [phone] PCP - General Emergency Medicine 11/12/23 documented as of this encounter
--- OUTSIDE RECORDS SUMMARY | 2025-08-07 08:55 | XMS_ITS | Encounter Summary ---
Author Organization [employer] ([place], [place], [place], [place]) Address [address] [place] [address] Care Team Providers Care Guest Services Coordinator Name Role Phone Jay Howell MD Primary Care Provider [phone] Encounter Details Date Type Department Care Team (Late st Contact Info) Description 08/27/2020 Transcribed Document [facility] [place] [address] [place] [address] ProviderJessie MD [address] [place] [address] Social History Tobacco Use Types Packs/Day Years Used Date Smoking Tobacco: Never Assessed Comments Unknown Sex and Gender Information Value Date Recorded Sex Assigned at Not on file Legal Sex Female 7:30 PM CDT Gender Identity Not on file Sexual Orientation Not on file documented as of this encounter Miscellaneous Notes * Cerner Conversion Note - Jessie Yuen MD - 08/27/2020 9:53 AM GREASE AND TALLOW PUMPER WOCN Inpatient Documentation Entered On: 09/01/2020 16:35 [...] Ulcer WOCN Wound Pressure Ulcer Documentation : [id number]-Olpfqi-Sscm Abnormality: Leg Left Lower, Anterior on 09/01/2020 13:00 by HOLDEN HSES RN I/W/A Present on Admission to Hospital: No I/W/A Type: Hematoma I/W/A Dressing Status: Clean, Dry, Intact I/W/A Wound Date of Dressing Change: 1:[id number]:0.495742:0:0 I/W/A Wound Bed Description: Full-thickness, Granulating I/W/A [...] Documentation : No ostomy assessments reported. HOLDEN EHSS RN - 09/01/2020 16:32 EST Electronically signed by [facility] Conversion Distribution Superintendent Cerner at 02/04/2023 2:18 PM CDT documented in this encounter Plan of Treatment Not on file documented as of this encounter Visit Diagnoses Not on filedocumented in this encounter Care Teams Guest Services Coordinator Relationship Specialty Start Date End Date Jay Howell MD [address] [place] [phone] PCP - General Emergency Medicine 11/12/23 documented as of this encounter
--- OUTSIDE RECORDS SUMMARY | 2025-08-07 08:55 | XMS_ITS | Encounter Summary ---
Author Organization [employer] ([place], [place], [place], [place]) Address [address] [place] [address] Care Team Providers Care Shank Breaker Name Role Phone Jay Howell MD Primary Care Provider [phone] Encounter Details Date Type Department Care Team (Late st Contact Info) Description 08/27/2020 Transcribed Document [facility] [place] Family Medicine [address] [place] [address] ProviderJessie MD [address] [place] [address] Social History Tobacco Use Types Packs/Day Years Used Date Smoking Tobacco: Never Assessed Comments Unknown Sex and Gender Information Value Date Recorded Sex Assigned at Not on file Legal Sex Female 7:30 PM CDT Gender Identity Not on file Sexual Orientation Not on file documented as of this encounter Miscellaneous Notes * Cerner Conversion Note - Jessie Yuen MD - 08/27/2020 8:20 AM WAX PATTERN ASSEMBLER Patient: SKYLER MONTOYA Age: 79 years [...] 08/[address] Verde: *Operation RIGHT UNIX DEVELOPER access - ultrasound guided Aortogram with LEFT lower extremity run-off LEFT PT angioplasty (2.5-3l691cb Nanocross) LEFT peroneal angioplasty (2.5-5z699tu Nanocross) RIGHT UNIX DEVELOPER closure (Angioseal) LEFT leg debridement 08/27/20 seen [...] Level 8.8 mg/dL 08/27/2020 03:40 MICRO: ACC: [id number] ORDER: Culture Anaerobic DATE: 08/26/2020 13:56 SOURCE: Surgical Swab SITE: Leg Lower L Reports Pre 08/27/2020 07:47 Culture in progress == ACC: [id number] ORDER: Culture Wound and Stain DATE: 08/26/2020 15:23 SOURCE: Surgical Swab SITE: Leg Lower L Reports Pre 08/27/2020 07:14 No growth GS 08/26/2020 18:13 Few White Blood Cells No organisms seen. == ACC: [id number] ORDER: Culture Fungus DATE: 08/26/2020 13:56 SOURCE: Surgical Swab SITE: Leg Lower L Reports SINDI 08/26/2020 16:09 No Fungal elements seen == ACC: [id number] ORDER: Culture Wound and Stain DATE: 08/25/2020 05:00 SOURCE: Wound SITE: Leg Lower L Reports Pre 08/26/2020 06:23 No growth GS 08/25/2020 07:26 No organisms seen. Few White Blood Cells Rare epithelial cells == ACC: [id number] ORDER: Culture Blood DATE: 08/25/2020 05:01 SOURCE: Blood SITE: Reports Pre 08/27/2020 06:01 No growth at 2 days. Pre 08/26/2020 06:01 No growth at 1 day. Pre 08/25/2020 23:02 Culture less than 24 Hrs old == ACC: [id number] ORDER: Culture Blood DATE: 08/25/2020 05:01 SOURCE: Blood SITE: Reports Pre 08/27/2020 06:01 No growth at 2 days. Pre 08/26/2020 06:01 No growth at 1 day. Pre 08/25/2020 23:02 Culture less than 24 Hrs old == Radiology Results (Last 48 hours) [id number] -- 08/25/2020 05:53 MRI Spine Lumbar WO [...] on filedocumented in this encounter Care Teams Shank Breaker Relationship Specialty Start Date End Date Jay Howell MD [address] [place] [phone] PCP - General Emergency Medicine 11/12/23 documented as of this encounter
--- OUTSIDE RECORDS SUMMARY | 2025-08-07 08:55 | XMS_ITS | Encounter Summary ---
Author Organization [employer] ([place], [place], [place], [place]) Address [address] [place] [address] Care Team Providers Care Engineer Station Mainline Name Role Phone Jay Howell MD Primary Care Provider [phone] Encounter Details Date Type Department Care Team (Late st Contact Info) Description 08/28/2020 Transcribed Document [facility] [place] [address] [place] [address] ProviderJessie MD [address] [place] [address] Social History Tobacco Use Types Packs/Day Years Used Date Smoking Tobacco: Never Assessed Comments Unknown Sex and Gender Information Value Date Recorded Sex Assigned at Not on file Legal Sex Female 7:30 PM CDT Gender Identity Not on file Sexual Orientation Not on file documented as of this encounter Miscellaneous Notes * Cerner Conversion Note - Jessie Yuen MD - 08/28/2020 10:32 AM ANIMAL CHIROPRACTOR Patient: SKYLER MONTOYA Age: 79 years Sex: [...] level of muscle per surgery *Operation RIGHT LIMOUSINE RENTAL CLERK access - ultrasound guided Aortogram with LEFT lower extremity run-off LEFT PT angioplasty (2.5-7s790uf Nanocross) LEFT peroneal angioplasty (2.5-2e759rp Nanocross) RIGHT LIMOUSINE RENTAL CLERK closure (Angioseal) LEFT leg debridement 08/28/20 [...] Level 8.8 mg/dL 08/27/2020 03:40 MICRO: ACC: [id number] ORDER: Culture Wound and Stain DATE: 08/25/2020 05:00 SOURCE: Wound SITE: Leg Lower L Reports Final 08/28/2020 08:57 No growth Pre 08/26/2020 06:23 No growth GS 08/25/2020 07:26 No organisms seen. Few White Blood Cells Rare epithelial cells == ACC: [id number] ORDER: Culture AFB and Stain DATE: 08/26/2020 13:56 SOURCE: Surgical Swab SITE: Leg Lower L Reports AFS 08/27/2020 13:07 No Acid Fast Bacilli seen == ACC: [id number] ORDER: Culture Anaerobic DATE: 08/26/2020 13:56 SOURCE: Surgical Swab SITE: Leg Lower L Reports Pre 08/28/2020 07:01 No Anaerobic growth Pre 08/27/2020 07:47 Culture in progress == ACC: [id number] ORDER: Culture Wound and Stain DATE: 08/26/2020 15:23 SOURCE: Surgical Swab SITE: Leg Lower L Reports Pre 08/27/2020 07:14 No growth GS 08/26/2020 18:13 Few White Blood Cells No organisms seen. == ACC: [id number] ORDER: Culture Fungus DATE: 08/26/2020 13:56 SOURCE: Surgical Swab SITE: Leg Lower L Reports SINDI 08/26/2020 16:09 No Fungal elements seen == ACC: [id number] ORDER: Culture Blood DATE: 08/25/2020 05:01 SOURCE: Blood SITE: Reports Pre 08/28/2020 06:01 No growth at 3 days. Pre 08/27/2020 06:01 No growth at 2 days. Pre 08/26/2020 06:01 No growth at 1 day. Pre 08/25/2020 23:02 Culture less than 24 Hrs old == ACC: [id number] ORDER: Culture Blood DATE: 08/25/2020 05:01 SOURCE: Blood SITE: Reports Pre 08/28/2020 06:01 No growth at 3 days. Pre 08/27/2020 06:01 No growth at 2 days. Pre 08/26/2020 06:01 No growth at 1 day. Pre 08/25/2020 23:02 Culture less than 24 Hrs old == Radiology Results (Last 48 hours) [id number] -- 08/25/2020 05:53 CT Abdomen WO W [...] on filedocumented in this encounter Care Teams Engineer Station Mainline Relationship Specialty Start Date End Date Jay Howell MD [address] [place] [phone] PCP - General Emergency Medicine 11/12/23 documented as of this encounter
--- OUTSIDE RECORDS SUMMARY | 2025-08-07 08:55 | XMS_ITS | Encounter Summary ---
Author Organization [employer] ([place], [place], [place], [place]) Address [address] [place] [address] Care Team Providers Care Test And Research Reactor Operator Name Role Phone Jay Howell MD Primary Care Provider [phone] Encounter Details Date Type Department Care Team (Late st Contact Info) Description 08/27/2020 Transcribed Document [facility] [place] [address] [place] [address] ProviderJessie MD [address] [place], [place] [address] Social History Tobacco Use Types Packs/Day Years Used Date Smoking Tobacco: Never Assessed Comments Unknown Sex and Gender Information Value Date Recorded Sex Assigned at Not on file Legal Sex Female 7:30 PM CDT Gender Identity Not on file Sexual Orientation Not on file documented as of this encounter Miscellaneous Notes * Cerner Conversion Note - Historical ProviderMD - 08/27/2020 3:10 PM SILK SCREEN LAYOUT DRAFTER Patient: SKYLER MONTOYA Age: 79 Years Sex: [...] (High) 08/27/2020 08:41 EST Electronically signed by [facility] Conversion Sheet Folder Cerner at 02/04/2023 2:06 PM CDT documented in this encounter Plan of Treatment Not on file documented as of this encounter Visit Diagnoses Not on filedocumented in this encounter Care Teams Test And Research Reactor Operator Relationship Specialty Start Date End Date Jay Howell MD [address] [place] [phone] PCP - General Emergency Medicine 11/12/23 documented as of this encounter
--- OUTSIDE RECORDS SUMMARY | 2025-08-07 08:55 | XMS_ITS | Encounter Summary ---
Author Organization [employer] ([place], [place], [place], [place]) Address [address] [place] [address] Care Team Providers Care Continuous Improvement Engineer Name Role Phone Jay Howell MD Primary Care Provider [phone] Encounter Details Date Type Department Care Team (Late st Contact Info) Description 08/27/2020 Transcribed Document [facility] [place] Family Medicine [address] [place] [address] ProviderJessie MD [address] [place] [address] Social History Tobacco Use Types Packs/Day Years Used Date Smoking Tobacco: Never Assessed Comments Unknown Sex and Gender Information Value Date Recorded Sex Assigned at Not on file Legal Sex Female 7:30 PM CDT Gender Identity Not on file Sexual Orientation Not on file documented as of this encounter Miscellaneous Notes * Cerner Conversion Note - Historical ProviderMD - 08/27/2020 2:40 PM SUPERVISOR ENDLESS TRACK VEHICLE WOCN Inpatient Documentation Entered On: 08/27/2020 14:42 [...] Past Medical History/Comorbidities : *Operation 08/26 RIGHT SALES CORRESPONDENT access - ultrasound guided Aortogram with LEFT lower extremity run-off LEFT PT angioplasty (2.5-6g771lr Nanocross) LEFT peroneal angioplasty (2.5-0f460nz Nanocross) RIGHT SALES CORRESPONDENT closure (Angioseal) LEFT leg debridement WOCN Assessment [...] Ulcer WOCN Wound Pressure Ulcer Documentation : Ymfpxibol-Vutvnc-Jzii Abnormality: Leg Left Lower, Anterior on 08/27/2020 14:38 by Sujata Mckee Rn-Enterostomal I/W/A Present on Admission to Hospital: Yes I/W/A Type: Other: a/p debridement I/W/A Dressing Status: Moist I/W/A Dressing Activity: Assessed, Dressing changed I/W/A Wound Date of Dressing Change: :[id number]:0.059326:0:0 I/W/A Wound Bed Description: Full-thickness I/W/A Bed [...] Initial set-up application NPWT Inpatient Start Date: :[id number]:0.502580:0:0 NPWT Device Used: Renasys Type of Foam/Gauze Applied: Black Foam Number of Black Foam Gauze Applied: 1 Number of TRAC Pads Applied: 1 NPWT Pressure: Continuous NPWT Pressure Settin NPWT Canister Changed: Yes I/W/A Incision/Wound Healing: Initial WOCN Ostomy Documentation : No ostomy assessments reported. Sujata Mckee Rn-Enterostomal - 08/27/2020 14:40 EST Electronically signed by [facility] Conversion Central Service Technician Cerner at 02/04/2023 1:56 PM CDT documented in this encounter Plan of Treatment Not on file documented as of this encounter Visit Diagnoses Not on filedocumented in this encounter Care Teams Continuous Improvement Engineer Relationship Specialty Start Date End Date Jay Howell MD [address] [place] [phone] PCP - General Emergency Medicine 11/12/23 documented as of this encounter
--- OUTSIDE RECORDS SUMMARY | 2025-08-07 08:55 | XMS_ITS | Encounter Summary ---
Author Organization [employer] ([place], [place], [place], [place]) Address [address] [place] [address] Care Team Providers Care Optical Instrument Specialist Name Role Phone Jay Howell MD Primary Care Provider [phone] Encounter Details Date Type Department Care Team (Late st Contact Info) Description 08/28/2020 Transcribed Document [facility] [place] Family Medicine [address] [place] [address] ProviderJessie MD [address] [place] [address] Social History Tobacco Use Types Packs/Day Years Used Date Smoking Tobacco: Never Assessed Comments Unknown Sex and Gender Information Value Date Recorded Sex Assigned at Not on file Legal Sex Female 7:30 PM CDT Gender Identity Not on file Sexual Orientation Not on file documented as of this encounter Miscellaneous Notes * Cerner Conversion Note - Historical MD Alpa - 08/28/2020 9:30 AM RIGGER CHIEF Hands Hanger Inpatient Document Entered On: 08/28/2020 11:43 EST Performed On: 08/28/2020 11:40 EST by KARRIE FERNANDES Rn-Educator Diabetes Hands Hanger Inpatient Document Reason for Hands Hanger Visit : Physician order Endocrine/Metabolic History : [...] 08/28/2020 11:40 EST Electronically signed by Sivan [facility] Conversion Dough Puncher Cerner at 02/04/2023 2:21 PM CDT documented in this encounter Plan of Treatment Not on file documented as of this encounter Visit Diagnoses Not on filedocumented in this encounter Care Teams Optical Instrument Specialist Relationship Specialty Start Date End Date Jay Howell MD [address] [place] [phone] PCP - General Emergency Medicine 11/12/23 documented as of this encounter
--- OUTSIDE RECORDS SUMMARY | 2025-08-07 08:55 | XMS_ITS | Encounter Summary ---
Author Organization [employer] ([place], [place], [place], [place]) Address [address] [place] [address] Care Team Providers Care Miscellaneous Machine Operator Name Role Phone Jay Howell MD Primary Care Provider [phone] Encounter Details Date Type Department Care Team (Late st Contact Info) Description 03/19/2021 Transcribed Document [facility] [place] Family Medicine [facility] [place] [address] ProviderJessie MD [address] [place] [phone] Social History Tobacco Use Types Packs/Day Years [...] 2. 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 3. Extensive vascular calcification. 4. Severe centrilobular emphysema. 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 [...] 03/19/2021 06:06 EDT Electronically signed by Sivan [facility] Conversion Certified Professional Midwife Cerner at 02/04/2023 2:09 PM CDT documented in this encounter Plan of Treatment Not on file documented as of this encounter Visit Diagnoses Not on filedocumented in this encounter Care Teams Miscellaneous Machine Operator Relationship Specialty Start Date End Date Jay Howell MD [address] [place] [phone] PCP - General Emergency Medicine 11/12/23 documented as of this encounter
--- OUTSIDE RECORDS SUMMARY | 2025-08-07 08:55 | XMS_ITS | Encounter Summary ---
Author Organization [employer] ([place], [place], [place], [place]) Address [address] [place] [address] Care Team Providers Care Tree Planter Name Role Phone Jay Howell MD Primary Care Provider [phone] Encounter Details Date Type Department Care Team (Late st Contact Info) Description 08/27/2020 Transcribed Document [facility] [place] [address] [place] [address] ProviderJessie MD [address] [place] [address] Social History Tobacco Use Types Packs/Day Years Used Date Smoking Tobacco: Never Assessed Comments Unknown Sex and Gender Information Value Date Recorded Sex Assigned at Not on file Legal Sex Female 7:30 PM CDT Gender Identity Not on file Sexual Orientation Not on file documented as of this encounter Miscellaneous Notes * Cerner Conversion Note - Historical ProviderMD - 08/27/2020 3:14 PM SKIN DIVING TEACHER Evaluation, Occupational Therapy Entered On: 08/29/2020 13:30 [...] Occupational Therapy : Verbalizes understanding ANAY BOCANEGRA [facility] - 08/29/2020 13:19 EST Teaching/Learning [...] BOCANEGRA STUDENTOCCUPATIONAL THERAPIST - 08/29/2020 13:40 EST Lug Breaker And Wire Puller Goals, OT Grooming LTG Grid Goal #1 [...] BOCANEGRA STUDENT-OCCUPATIONAL THERAPIST - 08/29/2020 13:40 EST Violet OT Charges OT Eval Moderate Complexity : 1 ANAY BOCANEGRA STUDENT-OCCUPATIONAL THERAPIST - 08/29/2020 13:19 EST documented in this encounter Plan of Treatment Not on file documented as of this encounter Visit Diagnoses Not on filedocumented in this encounter Care Teams Tree Planter Relationship Specialty Start Date End Date Jay Howell MD [address] [place] [phone] PCP - General Emergency Medicine 11/12/23 documented as of this encounter
--- OUTSIDE RECORDS SUMMARY | 2025-08-07 08:55 | XMS_ITS | Encounter Summary ---
Author Organization [employer] ([place], [place], [place], [place]) Address [address] [place] [address] Care Team Providers Care Aoc Operations Intelligence Chief Name Role Phone Jay Howell MD Primary Care Provider [phone] Encounter Details Date Type Department Care Team (Late st Contact Info) Description 08/28/2020 Transcribed Document [facility] [place] Family Medicine [address] [place] [address] ProviderJessie MD [address] [place] [address] Social History Tobacco Use Types Packs/Day Years Used Date Smoking Tobacco: Never Assessed Comments Unknown Sex and Gender Information Value Date Recorded Sex Assigned at Not on file Legal Sex Female 7:30 PM CDT Gender Identity Not on file Sexual Orientation Not on file documented as of this encounter Miscellaneous Notes * [employer]ner Conversion Note - Historical ProviderMD - 08/28/2020 10:16 AM MAILROOM CLERK Attempt to Treat, PT Entered On: 08/28/2020 [...] 08/28/2020 10:27 [address] by [facility] Conversion Tile Setter Apprentice Cerner at 02/04/2023 2:14 PM CDT documented in this encounter Plan of Treatment Not on file documented as of this encounter Visit Diagnoses Not on filedocumented in this encounter Care Teams Aoc Operations Intelligence Chief Relationship Specialty Start Date End Date Jay Howell MD [address] [place] [phone] PCP - General Emergency Medicine 11/12/23 documented as of this encounter
--- OUTSIDE RECORDS SUMMARY | 2025-08-07 08:55 | XMS_ITS | Clinical Summary ---
Author Organization [facility] [place] [address] Care Team Providers Care Bottom Buffer Name Role Phone Jay Howell MD [...] contusion - Repeat CTH 0500 pending - [facility] elevated - Na goal 140-145 - [...] repeat falls Continue outpatient follow-up with established shearer operator; consider closer follow up with continued weakness/repeat falls. 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 She has denied any chest pain. Her last heart catheterization was November 25, 2022 at [facility] in [place] showing: -last C 11/25/2022- A. CAD s/p [...] of chest/PE protocol. Patient was sent to [facility] radiology department for CT scan today. - [...] Type Department Care Team Description 07/16/2025 Telephone [facility]rology [address], [address] [place] [phone] Kimmie Cabrera 07/09/2025 Telephone [facility] [address], [address] [place] [phone] Kimmie Cabrera 07/02/2025 Telephone [facility] [address], [address] [place] [phone] Returned Call 05/27/2025 Telephone [facility] [address], [address]st [place] [phone] Mitraneurology, Physician, 05/13/2025 Telephone [facility] [address], [address]st [place] [phone] Mitraneurology, Physician, from Last 3 Months Immunizations [...] place to sleep or slept in a fdc (including now)? No 08/06/2024 CAGE ASSESSMENT Answer [...] drink first t kathleen in the morning (EYE-PROCESS IMPROVEMENT ANALYST) to steady your nerves or to get rid of a hangover? 0 03/20/2024 CAGE Questionnaire Score 0 024 Utilities Answer Date Recorded In the past 12 months has th SupportLocal, gas, oil, or water company threatened to [...] Screenings 02/04/2025 08/06/2024 UKY-Depression Screening 04/03/2025 04/03/2024 [id number] Vaccine ( - 2024- season) 2025 12/09/2021, [...] this topic Medical Devices Implanted Type Area Copy Coordinator Device Identifier Shelf Expiration Date Model / Serial / Lot Nail 10s Intertan 10mm X 36cm 130d Left - [id number] Implanted:Qty: 1 on 03/20/2024 by Haroldo Braden MD at [facility] Nail Left: Femur [id number] 08/04/2033 [id number] / / [id number] Nail Tibial [id number] - [id number] Implanted:Qty: 1 on 08/06/2024 by Haroldo Braden MD at [facility] Nail Right: Tibia [facility] ([employer])-[id number] 09/15/2033 [id number] / / [id number] Lag/Comp Screw Kit 90/85 - [id number] Implanted:Qty: 1 on 03/20/2024 by Haroldo Braden MD at [facility] Screw Left: Femur [employer]-[id number] 09/26/2033 [id number] / / [id number] Screw Trigen 5.0mm For Metanail 37.5mm - [id number] Implanted:Qty: 1 on 03/20/2024 by Haroldo Braden MD at [facility] Screw Left: Femur [employer]-[id number] 08/19/2033 [id number] / / [id number] Screw Locking Adv T2 T2 D5xl60 - [id number] Implanted:Qty: 1 on 08/06/2024 by Haroldo Braden MD at [facility] Screw Right: Tibia [employer] [facility] ([facility][id number] 05/16/2034 [id number] / / [id number] Screw Locking Adv T2 T2 D5xl50 - [id number] Implanted:Qty: 1 on 08/06/2024 by Haroldo Braden MD at [facility] Screw Right: Tibia [facility] ([facility][id number] 01/14/2034 [id number] / / [id number] Screw Locking T2 D5xl42.5 - [id number] Implanted:Qty: 1 on 08/06/2024 by Haroldo Braden MD at [facility] Screw Right: Tibia [employer] ([facility][id number] 05/16/2034 [id number] / / [id number] Screw Locking T2 D5x35 - [id number] Implanted:Qty: 1 on 08/06/2024 by Haroldo Braden MD at [facility] Screw Right: [employer] ([facility][id number] 05/16/2034 [id number] / / [id number] Procedures Procedure Name Priority Date/Time Associated Diagnosis [...] Adults <6.0% Children and Adolescents <7.5% Source: [place] [employer]. Standards of medical care in diabetes,2017. Diabetes Care.2017:40 (suppl 1):S1-S135. HbA1c assay performed by an ion-exchange chromatography method that is certified traceable to the DCCT. Gerhard Zazueta MD LAB BLOOD ORDERABLES Final Resu lt [facility] [address] [place] [address] from Last 3 Months or Most Recently Relevant to Health Maintenance Insurance MEDICARE Advance Directives Documents on File Type Date Recorded Patient Rug Washer Expl anation Advance Directives and Livin g [...] Patient has decision-making capacity? Yes Care Teams Bottom Buffer Relationship Specialty Start Date End Date Jay Howell MD [address] [place], [place] [address] PCP - General 03/08/21
--- OUTSIDE RECORDS SUMMARY | 2025-08-07 08:55 | XMS_ITS | Encounter Summary ---
Author Organization [facility] Address [address] [place] [address] Care Team Providers Care Loan Processing Supervisor Name Role Phone Jay Howell MD Primary Care Provider [phone] Reason for Visit * Reason Onset Date Comments DR. DUMAS - SCHEDULING REQUEST 07/02/2025 Encounter Details Date Type Department Care Team (Late st Contact Info) Description 07/02/2025 Telephone [facility] CARDIOLOGY [address] [place] [phone] Judie Dumas MD [address] [place] [address] DR. 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. PATIENT WOULD LIKE TO BE SEEN PAULETTE AND CAN SEND ANY RELEVANT RECORDS FROM CARE WHILE SHE WAS AWAY. documented in this encounter Plan of Treatment Not on file documented as of this encounter Visit Diagnoses Not on filedocumented in this encounter Care Teams Loan Processing Supervisor Relationship Specialty Start Date End Date Jay Howell MD [address] [place] [address] PCP - General Emergency Medicine 04/28/23 documented as of this encounter
--- OUTSIDE RECORDS SUMMARY | 2025-08-07 08:55 | XMS_ITS | Encounter Summary ---
Author Organization [employer] ([place], [place], [place], [place]) Address [address] [place] [address] Care Team Providers Care Dermatologist And Dermatopathologist Name Role Phone Jay Howell MD Primary Care Provider [phone] Encounter Details Date Type Department Care Team (Late st Contact Info) Description 03/19/2021 Transcribed Document [facility] [place] [facility] [place] [address] ProviderJessie MD [address] [place] [address] Social History Tobacco Use Types Packs/Day Years [...] EDT Electronically signed by Gayle Finnegan Conversion Title Insurance Sales Representative Cerner at 02/04/2023 2:09 PM CDT documented in this encounter Plan of Treatment Not on file documented as of this encounter Visit Diagnoses Not on filedocumented in this encounter Care Teams Dermatologist And Dermatopathologist Relationship Specialty Start Date End Date Jay Howell MD [address] [place] [phone] PCP - General Emergency Medicine 11/12/23 documented as of this encounter
--- OUTSIDE RECORDS SUMMARY | 2025-08-07 08:55 | XMS_ITS | Encounter Summary ---
Author Organization [employer] ([place], [place], [place], [place]) Address [address] [place] [address] Care Team Providers Care Plate Mill Hand Name Role Phone Jay Howell MD Primary Care Provider [phone] Encounter Details Date Type Department Care Team (Late st Contact Info) Description 08/27/2020 Transcribed Document [facility] [place] [address] [place] [address] ProviderJessie MD [address] [place] [address] Social History Tobacco Use Types Packs/Day Years Used Date Smoking Tobacco: Never Assessed Comments Unknown Sex and Gender Information Value Date Recorded Sex Assigned at Not on file Legal Sex Female 7:30 PM CDT Gender Identity Not on file Sexual Orientation Not on file documented as of this encounter Miscellaneous Notes * Cerner Conversion Note - Jessie Yeun MD - 08/27/2020 3:10 PM TOP LIFT SCOURER On Going Discharge Planning Entered On: 08/27/2020 15:14 EST Performed On: 08/27/2020 15:10 EST by KAVITA PELLETIER RN-Hydrometeorology TeacherPeoplesoft Financials Consultant Progress Note Discharge Arrangements : Patient Post-Acute [...] Meeting Medical Necessity : Yes KAVITA PELLETIER RN-Hydrometeorology Teacher - 08/27/2020 15:10 EST Narrative Progress Note [...] past after her SIMONA and went to [facility] prior to home with HH. She is agreeable to look at list of APPLICATIONS ENGINEERING MANAGER to make an informed decision based on quality and resource use information. Cx's are pending to determine need for IV abx at home. Likely dc in a few days. CM will continue to follow. KAVITA PELLETIER RN-Hydrometeorology Teacher - 08/27/2020 15:10 EST Electronically signed by Sivan [facility] Conversion Plant Maintenance Engineer Cerner at 02/04/2023 2:13 PM CDT documented in this encounter Plan of Treatment Not on file documented as of this encounter Visit Diagnoses Not on filedocumented in this encounter Care Teams Plate Mill Hand Relationship Specialty Start Date End Date Jay Howell MD [address] [place] [phone] PCP - General Emergency Medicine 11/12/23 documented as of this encounter
--- OUTSIDE RECORDS SUMMARY | 2025-08-07 08:55 | XMS_ITS | Encounter Summary ---
Author Organization [employer] ([place], [place], [place], [place]) Address [address] [place] [address] Care Team Providers Care Investor Relations Analyst Name Role Phone Jay Howell MD Primary Care Provider [phone] Encounter Details Date Type Department Care Team (Late st Contact Info) Description 08/28/2020 Transcribed Document [facility] [place] [address] [place] [address] ProviderJessie MD [address] [place] [address] Social History Tobacco Use Types Packs/Day Years Used Date Smoking Tobacco: Never Assessed Comments Unknown Sex and Gender Information Value Date Recorded Sex Assigned at Not on file Legal Sex Female 7:30 PM CDT Gender Identity Not on file Sexual Orientation Not on file documented as of this encounter Miscellaneous Notes * Cerner Conversion Note - Jessie ProviderMD - 08/28/2020 1:08 PM FISH PROCESSING SUPERVISOR Patient: SKYLER MONTOYA Age: 79 Years [...] distal ecchymosis. Palpable DP pulse, audible biphasic TOOL TROUBLE SHOOTER signal. Neuromotor intact. VTE Risk Total Score [...] LEFT PT occlusion - distal - 08/26/2020 ([facility];[place]) RIGHT SORTING MACHINE ATTENDANT access - ultrasound guided Aortogram with LEFT lower extremity run-off LEFT PT angioplasty ([id number] [employer]) LEFT peroneal angioplasty (2.5-8l623qw [employer]) RIGHT SORTING MACHINE ATTENDANT closure (Angioseal) LEFT leg debridement - H&H, [...] for tomorrow's vac change. - Rx for Thornton 5/325mg q4-6h prn pain #20 on chart. - Will need RLE angio with revascularization in near future. - F/u 1 wk w/ Dr. Verde in [place] (09/08 at 1245) - F/u w/ Dr. [...] 24 Hours) Radiology Results (Last 48 hours) [id number] -- 08/25/2020 05:53 CT Abdomen WO W [...] nitrofurantoin (blisters, blisters) Electronically signed by Sivan [facility] Conversion Trauma Surgeon Cerner at 02/04/2023 1:58 PM CDT documented in this encounter Plan of Treatment Not on file documented as of this encounter Visit Diagnoses Not on filedocumented in this encounter Care Teams Investor Relations Analyst Relationship Specialty Start Date End Date Jay Howell MD [address] [place] [phone] PCP - General Emergency Medicine 11/12/23 documented as of this encounter
--- OUTSIDE RECORDS SUMMARY | 2025-08-07 08:55 | XMS_ITS | Encounter Summary ---
Author Organization [employer] ([place], [place], [place], [place]) Address [address] [place] [address] Care Team Providers Care Physical Medicine Physician Name Role Phone Jay Howell MD Primary Care Provider [phone] Encounter Details Date Type Department Care Team (Late st Contact Info) Description 08/28/2020 Transcribed Document [facility] [place] [address] [place] [address] ProviderJessie MD [address] [place] [address] Social History Tobacco Use Types Packs/Day Years Used Date Smoking Tobacco: Never Assessed Comments Unknown Sex and Gender Information Value Date Recorded Sex Assigned at Not on file Legal Sex Female 7:30 PM CDT Gender Identity Not on file Sexual Orientation Not on file documented as of this encounter Miscellaneous Notes * Cerner Conversion Note - Historical ProviderMD - 08/28/2020 10:17 AM BOAT DIESEL MOTOR MECHANIC Attempt to Treat, OT Entered On: 08/28/2020 [...] 08/28/2020 14:59 EST Electronically signed by Sivan [facility] Conversion Consignee Cerner at 02/04/2023 1:59 PM CDT documented in this encounter Plan of Treatment Not on file documented as of this encounter Visit Diagnoses Not on filedocumented in this encounter Care Teams Physical Medicine Physician Relationship Specialty Start Date End Date Jay Howell MD [address] [place] [phone] PCP - General Emergency Medicine 11/12/23 documented as of this encounter
--- OUTSIDE RECORDS SUMMARY | 2025-08-07 08:55 | XMS_ITS | Encounter Summary ---
Author Organization [facility] Address [address] [place] [id number] Care Team Providers Care Business Quality Assurance Analyst Name Role Phone Jay Howell MD Primary Care Provider Encounter Details Date Type Department Care Team (Late st Contact Info) Description 07/16/2025 Telephone [facility] [address] [place] [address] [place] [address] Social History Tobacco Use Types Packs/Day Years [...] place to sleep or slept in a mcfp (including now)? No 08/06/2024 CAGE ASSESSMENT Answer [...] drink first t kathleen in the morning (EYE-CHEMICAL MAKER) to steady your nerves or to [...] documented as of this encounter Care Teams Business Quality Assurance Analyst Relationship Specialty Start Date End Date Jay Howell MD [address] [place], [place] [address] PCP - General 03/08/21 documented as of this encounter
--- OUTSIDE RECORDS SUMMARY | 2025-08-07 08:55 | XMS_ITS | Encounter Summary ---
Author Organization [employer] ([place], [place], [place], [place]) Address [address] [place] [address] Care Team Providers Care Greeting Card Editor Name Role Phone Jay Howell MD Primary Care Provider [phone] Encounter Details Date Type Department Care Team (Late st Contact Info) Description 08/27/2020 Transcribed Document [facility] [place] [address] [place] [address] ProviderJessie MD [address] [place], [place] [address] Social History Tobacco Use Types Packs/Day Years Used Date Smoking Tobacco: Never Assessed Comments Unknown Sex and Gender Information Value Date Recorded Sex Assigned at Not on file Legal Sex Female 7:30 PM CDT Gender Identity Not on file Sexual Orientation Not on file documented as of this encounter Miscellaneous Notes * Cerner Conversion Note - Historical ProviderMD - 08/27/2020 3:14 PM PUMPING STATION SUPERVISOR Evaluation, Physical Therapy Entered On: 08/29/2020 12:09 EST Performed On: 08/29/2020 10:38 EST by ERIC OH, PT General Information, PT Therapy Diagnosis, PT : assessment for need for skilled PTx --- NONE at this time Onset of Problem, PT : 08/27/2020 EST Co-treated by, PT : Other: OTx Student General Information Comment, PT : 79 yo female adm to [facility] 08/25 with L LE Hematoma [...] Assessment : yes Attention Assessment : Present REIC OH PT - 08/29/2020 13:14 EST Edu [...] Treatment : EVAL ONLY DISCHARGE FROM PTx ERCI OH, PT - 08/29/2020 13:14 EST Pain [...] ALTHEA ERIC, PT - 08/29/2020 13:14 EST [facility] Charges PT Eval Low Complexity : 1 ALTHEA ERIC, PT - 08/29/2020 13:14 EST documented in this encounter Plan of Treatment Not on file documented as of this encounter Visit Diagnoses Not on filedocumented in this encounter Care Teams Greeting Card Editor Relationship Specialty Start Date End Date Jay Howell MD [address] [place] [phone] PCP - General Emergency Medicine 11/12/23 documented as of this encounter
--- OUTSIDE RECORDS SUMMARY | 2025-08-07 08:55 | XMS_ITS | Encounter Summary ---
Author Organization [employer] ([place], [place], [place], [place]) Address [address] [place] [address] Care Team Providers Care Curriculum And Instruction Specialist Name Role Phone Jay Howell MD Primary Care Provider [phone] Encounter Details Date Type Department Care Team (Late st Contact Info) Description 08/27/2020 Transcribed Document [facility] [place] Medicine [address] [place] [address] ProviderJessie MD [address] [place] [address] Social History Tobacco Use Types Packs/Day Years Used Date Smoking Tobacco: Never Assessed Comments Unknown Sex and Gender Information Value Date Recorded Sex Assigned at Not on file Legal Sex Female 7:30 PM CDT Gender Identity Not on file Sexual Orientation Not on file documented as of this encounter Miscellaneous Notes * Cerner Conversion Note - Jessie Yuen MD - 08/27/2020 5:54 PM DIRECTOR BUSINESS TRAVEL Patient: SKYLER MONTOYA Age: 79 Years Sex: [...] multiple stent placements. The patient presented to [facility] ER after recent fall with hematoma [...] Vitamins oral tablet, 1 Tab, Oral, Daily Corry 7.5 mg-325 mg oral tablet, 1 Tab, [...] 08/27/2020 08:41 EST Electronically signed by [facility] Conversion Ethnology Professor Cerner at 02/04/2023 2:05 PM CDT documented in this encounter Plan of Treatment Not on file documented as of this encounter Visit Diagnoses Not on filedocumented in this encounter Care Teams Curriculum And Instruction Specialist Relationship Specialty Start Date End Date Jay Howell MD [address] [place] [phone] PCP - General Emergency Medicine 11/12/23 documented as of this encounter
--- OUTSIDE RECORDS SUMMARY | 2025-08-07 08:55 | XMS_ITS | Encounter Summary ---
Author Organization [employer] ([place], [place], [place], [place]) Address [address] [place] [address] Care Team Providers Care Service Coordinator Elderly Facility Name Role Phone Jay Howell MD Primary Care Provider [phone] Encounter Details Date Type Department Care Team (Late st Contact Info) Description 08/27/2020 Transcribed Document [facility] [place] Family Medicine [address] [place] [address] ProviderJessie MD [address] [place] [address] Social History Tobacco Use Types Packs/Day Years Used Date Smoking Tobacco: Never Assessed Comments Unknown Sex and Gender Information Value Date Recorded Sex Assigned at Not on file Legal Sex Female 7:30 PM CDT Gender Identity Not on file Sexual Orientation Not on file documented as of this encounter Miscellaneous Notes * Cerner Conversion Note - Historical ProviderMD - 08/27/2020 3:14 PM STAMP CLASSIFIER Consult Phone Call Documentation Entered On: 08/27/2020 15:23 EST Performed On: 08/27/2020 15:14 EST by JOANN DELGADILLO Phone Call for Consults Consult Phone Call/Page Attempt : First call JOANN DELGADILLO - 08/27/2020 15:23 EST Electronically signed by Sivan [facility] Conversion Heel Cover Splitter Cerner at 02/04/2023 1:59 PM CDT documented in this encounter Plan of Treatment Not on file documented as of this encounter Visit Diagnoses Not on filedocumented in this encounter Care Teams Service Coordinator Elderly Facility Relationship Specialty Start Date End Date Jay Howell MD [address] [place] [phone] PCP - General Emergency Medicine 11/12/23 documented as of this encounter
--- OUTSIDE RECORDS SUMMARY | 2025-08-07 08:55 | XMS_ITS | Encounter Summary ---
Author Organization [employer] ([place], [place], [place], [place]) Address [address] [place] [address] Care Team Providers Care Marshmallow Machine Operator Name Role Phone Jay Howell MD Primary Care Provider [phone] Encounter Details Date Type Department Care Team (Late st Contact Info) Description 08/28/2020 Transcribed Document [facility] [place] [address] [place] [address] ProviderJessie MD [address] [place], [place] [address] Social History Tobacco Use Types Packs/Day Years Used Date Smoking Tobacco: Never Assessed Comments Unknown Sex and Gender Information Value Date Recorded Sex Assigned at Not on file Legal Sex Female 7:30 PM CDT Gender Identity Not on file Sexual Orientation Not on file documented as of this encounter Miscellaneous Notes * Cerner Conversion Note - Historical ProviderMD - 08/28/2020 5:00 PM [facility]IC [facility] Chart Check - Review Order Profile Entered On: 08/28/2020 18:04 EST Performed On: 08/28/2020 17:00 EST by Jose L Jones RN Chart Check All Active Orders Reviewed : Yes Jose L Jones RN - 08/28/2020 18:04 EST Electronically signed by Sivan [facility] Conversion Hand Plate Stacker Cerner at 02/04/2023 2:20 PM CDT documented in this encounter Plan of Treatment Not on file documented as of this encounter Visit Diagnoses Not on filedocumented in this encounter Care Teams Marshmallow Machine Operator Relationship Specialty Start Date End Date Jay Howell MD [address] [place] [phone] PCP - General Emergency Medicine 11/12/23 documented as of this encounter
--- OUTSIDE RECORDS SUMMARY | 2025-08-07 08:55 | XMS_ITS | Encounter Summary ---
Author Organization [employer] ([place], [place], [place], [place]) Address [address] [place] [address] Care Team Providers Care It Project Coordinator Name Role Phone Jay Howell MD Primary Care Provider [phone] Encounter Details Date Type Department Care Team (Late st Contact Info) Description 03/19/[address] [facility] [place] [address] [place] [address] ProviderJessie MD [address] [place] [address]291 Social History Tobacco Use Types Packs/Day [...] 03/19/2021 15:48 EDT by Krystina Giang V, Visual Designer Valance Cutter Final Discharge Planning Discharge Arrangements : Patient [...] : Yes Discharge To Care Management : Home/Residential/[facility] or Self Care -01 Krystina Giang V, Visual Designer [facility] [place] - 03/19/2021 15:48 EDT Final Narrative Note Final Narrative Note : DC home with spouse. Follow up with outpatient Physical therapy in home town. IM signed. Krystina Giang V Visual Designer [facility] - 03/19/2021 15:48 EDT Electronically signed by [facility], [facility] Conversion Dry Wall Finisher Cerner at 02/04/2023 2:08 PM CDT documented in this encounter Plan of Treatment Not on file documented as of this encounter Visit Diagnoses Not on filedocumented in this encounter Care Teams It Project Coordinator Relationship Specialty Start Date End Date Jay Howell MD [address] [place] [phone] PCP - General Emergency Medicine 11/12/23 documented as of this encounter
--- OUTSIDE RECORDS SUMMARY | 2025-08-07 08:55 | XMS_ITS | Encounter Summary ---
Author Organization [employer] ([place], [place], [place], [place]) Address [address] [place] [address] Care Team Providers Care Batch And Furnace Manager Name Role Phone Jay Howell MD Primary Care Provider [phone] Encounter Details Date Type Department Care Team (Late st Contact Info) Description 08/27/2020 Transcribed Document [facility] [place] [address] [place] [address] ProviderJessie MD [address] [place] [address] Social History Tobacco Use Types Packs/Day Years Used Date Smoking Tobacco: Never Assessed Comments Unknown Sex and Gender Information Value Date Recorded Sex Assigned at Not on file Legal Sex Female 7:30 PM CDT Gender Identity Not on file Sexual Orientation Not on file documented as of this encounter Miscellaneous Notes * Cerner Conversion Note - Historical ProviderMD - 08/27/2020 2:00 AM TUBE SORTER Station Repairer Details Entered On: 08/27/2020 1:36 EST Performed [...] Madhavi Reyes RN-RESOURCE - 08/27/2020 1:36 EST documented in this encounter Plan of Treatment Not on file documented as of this encounter Visit Diagnoses Not on filedocumented in this encounter Care Teams Batch And Furnace Manager Relationship Specialty Start Date End Date Jay Howell MD [address] [place] [phone] PCP - General Emergency Medicine 11/12/23 documented as of this encounter
--- OUTSIDE RECORDS SUMMARY | 2025-08-07 08:55 | XMS_ITS | Encounter Summary ---
Author Organization [facility] Address [address] [place] [address] Care Team Providers Care Wood Heel Back Liner Name Role Phone Jay Howell MD Primary Care Provider [phone] Reason for Visit * Reason Onset Date Comments ALICE - MEDICAL RECORDS REQUEST 07/02/2025 Encounter Details Date Type Department Care Team (Late st Contact Info) Description 07/02/2025 Telephone [facility] [address] [place] [address] Brenda Guerrier APRN [address] [place] [address] ALIEC - MEDICAL RECORDS REQUEST Social History Tobacco [...] 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 SHE CAN FILL OUT THE SHARON FORM AT HER APPT IF THEY NEED ANYTHING OTHER THAN WHAT WE CAN SEE. THANKS. * Telephone Encounter - Radha Prince RegSched Rep - 07/02/2025 10:43 AM EDT Caller: Miladis Montoya Relationship: Self Best call back number: [phone] What form or medical record are you requesting: MEDICAL RECORDS. Who is requesting this form or medical record from you: DR FLOR LÓPEZ WITH [facility] IN [place], [place] How would you like to receive the form or medical records (pick-up, mail, fax): FAX If fax, what is the fax number: [phone] Timeframe paperwork needed: PAULETTE - BEFORE APPOINTMENT ON 07.10.25 Additional notes: PATIENT HAS APPOINTMENT WITH [facility] ON 07.10.25 AND NEEDS TO HAVE MEDICAL RECORDS FROM [facility] SENT OVER. HOWEVER, [facility] NEEDS A MEDICAL RECORDS REQUEST FORM FROM THE OFFICE BEFORE THEY ARE WILLING TO FAX THEM TO US. documented in this encounter Plan of Treatment Not on file documented as of this encounter Visit Diagnoses Not on filedocumented in this encounter Care Teams Wood Heel Back Liner Relationship Specialty Start Date End Date Jay Howell MD [address] [place] [address] PCP - General Emergency Medicine 04/28/23 documented as of this encounter
--- OUTSIDE RECORDS SUMMARY | 2025-08-07 08:55 | XMS_ITS | Encounter Summary ---
Author Organization [employer] ([place], [place], [place], [place]) Address [address] [place] [address] Care Team Providers Care Vegetable Trimmer Name Role Phone Jay Howell MD Primary Care Provider [phone] Encounter Details Date Type Department Care Team (Late st Contact Info) Description 08/27/2020 Transcribed Document [facility] [place] [address] [place] [address] ProviderJessie MD [address] [place], [place] [address] Social History Tobacco Use Types Packs/Day Years Used Date Smoking Tobacco: Never Assessed Comments Unknown Sex and Gender Information Value Date Recorded Sex Assigned at Not on file Legal Sex Female 7:30 PM CDT Gender Identity Not on file Sexual Orientation Not on file documented as of this encounter Miscellaneous Notes * Cerner Conversion Note - Historical ProviderMD - 08/27/2020 5:00 PM SPACE SYSTEMS OPERATIONS CRAFTSMAN Chart Check - Review Order Profile Entered On: 08/27/2020 19:43 EST Performed On: 08/27/2020 17:00 EST by JOAO ROSA RN Chart Check Powerplans Initiated/Discontinued as Appropriate : Yes All Active Orders Reviewed : Yes JOAO ROSA RN - 08/27/2020 19:43 EST Electronically signed by Sivan [facility] Conversion Elementary Substitute Teacher Cerner at 02/04/2023 2:08 PM CDT documented in this encounter Plan of Treatment Not on file documented as of this encounter Visit Diagnoses Not on filedocumented in this encounter Care Teams Vegetable Trimmer Relationship Specialty Start Date End Date Jay Howell MD [address] [place] [phone] PCP - General Emergency Medicine 11/12/23 documented as of this encounter
--- OUTSIDE RECORDS SUMMARY | 2025-08-07 08:56 | XMS_ITS | Encounter Summary ---
Author Organization [employer] ([place], [place], [place], [place]) Address [address] [place] [address] Care Team Providers Care Computational Chemist Name Role Phone Jay Howell MD Primary Care Provider [phone] Encounter Details Date Type Department Care Team (Late st Contact Info) Description 08/28/2020 Transcribed Document [facility] [place] [address] [place] [address] ProviderJessie MD [address] [place], [place] [id number] Social History Tobacco Use Types Packs/Day Years Used Date Smoking Tobacco: Never Assessed Comments Unknown Sex and Gender Information Value Date Recorded Sex Assigned at Not on file Legal Sex Female 7:30 PM CDT Gender Identity Not on file Sexual Orientation Not on file documented as of this encounter Miscellaneous Notes * Cerner Conversion Note - Historical ProviderMD - 08/28/2020 9:22 AM EXTRUSION TECHNICIAN Patient: SKYLER MONTOYA Age: 79 Years [...] (High) 08/28/2020 07:35 EST Electronically signed by [facility] Conversion Interventional Physician Cerner at 02/04/2023 2:12 PM CDT documented in this encounter Plan of Treatment Not on file documented as of this encounter Visit Diagnoses Not on filedocumented in this encounter Care Teams Computational Chemist Relationship Specialty Start Date End Date Jay Howell MD [address] [place] [phone] PCP - General Emergency Medicine 11/12/23 documented as of this encounter
--- OUTSIDE RECORDS SUMMARY | 2025-08-07 08:56 | XMS_ITS | Encounter Summary ---
Author Organization [employer] ([place], [place], [place], [place]) Address [address] [place] [address] Care Team Providers Care Programmer Name Role Phone Jay Howell MD Primary Care Provider [phone] Encounter Details Date Type Department Care Team (Late st Contact Info) Description 08/28/2020 Transcribed Document [facility] [place] [address] [place] [address] ProviderJessie MD [address] [place] [address] Social History Tobacco Use Types Packs/Day Years Used Date Smoking Tobacco: Never Assessed Comments Unknown Sex and Gender Information Value Date Recorded Sex Assigned at Not on file Legal Sex Female 7:30 PM CDT Gender Identity Not on file Sexual Orientation Not on file documented as of this encounter Miscellaneous Notes * Cerner Conversion Note - Jessie Yuen MD - 08/28/2020 3:33 PM PORCELAIN ENAMEL INSTALLER On Going Discharge Planning Entered On: 08/28/2020 15:37 EST Performed On: 08/28/2020 15:33 EST by KAVITA PELLETIER RN-Green Promotions SpecialistBrand Coordinator Progress Note Discharge Arrangements : Patient Post-Acute [...] Meeting Medical Necessity : Yes KAVITA PELLETIER RN-Green Promotions Specialist - 08/28/2020 15:33 EST Narrative Progress Note Narrative Progress Note : Cx's still pending. IV Vanc/Dapto. Vasc s/o. Pt will need NPWT-CM will obtain prior to dc. List of BACKER UP's for [place] given to pt. She [...] past after her SIMONA and went to [facility] prior to home with HH. She is agreeable to look at list of BACKER UP to make an informed decision based on quality and resource use information. Cx's are pending to determine need for IV abx at home. Likely dc in a few days. CM will continue to follow. KAVITA PELLETIER RN-Green Promotions Specialist - 08/27/20 15:14:36 KAVITA PELLETIER RN-Green Promotions Specialist - 08/28/2020 15:33 EST Electronically signed by Sivan [facility] Conversion City Route Driver Cerner at 02/04/2023 2:13 PM CDT documented in this encounter Plan of Treatment Not on file documented as of this encounter Visit Diagnoses Not on filedocumented in this encounter Care Teams Programmer Relationship Specialty Start Date End Date Jay Howell MD [address] [place] [phone] PCP - General Emergency Medicine 11/12/23 documented as of this encounter
--- OUTSIDE RECORDS SUMMARY | 2025-08-07 08:56 | XMS_ITS | Encounter Summary ---
Author Organization [facility] Address [address] [place] [id number] Care Team Providers Care Cistern Room Working Supervisor Name Role Phone Jay Howell MD Primary Care Provider [phone] Encounter Details Date Type Department Care Team (Late st Contact Info) Description 07/09/2025 Telephone [facility] U[facility] [address] [place] [address] [place] [address] Social History Tobacco Use Types Packs/Day Years [...] place to sleep or slept in a nursing home (including now)? No 08/06/2024 CAGE ASSESSMENT [...] drink first t kathleen in the morning (EYE-HAND CROCHETER) to steady your nerves or to get [...] encounter Miscellaneous Notes * Telephone Encounter - Kmimie Cabrera - 07/09/2025 11:39 AM EDT Patient [...] documented as of this encounter Care Teams Cistern Room Working Supervisor Relationship Specialty Start Date End Date Jay Howell MD [address] [place], [place] [address] PCP - General 03/08/21 documented as of this encounter
--- OUTSIDE RECORDS SUMMARY | 2025-08-07 08:56 | XMS_ITS | Encounter Summary ---
Author Organization [employer] ([place], [place], [place], [place]) Address [address] [place] [address] Care Team Providers Care Music Director Name Role Phone Jay Howell MD Primary Care Provider [phone] Encounter Details Date Type Department Care Team (Late st Contact Info) Description 08/28/2020 Transcribed Document [facility] [place] Medicine [address] [place] [address] ProviderJessie MD [address] [place] [address] Social History Tobacco Use Types Packs/Day Years Used Date Smoking Tobacco: Never Assessed Comments Unknown Sex and Gender Information Value Date Recorded Sex Assigned at Not on file Legal Sex Female 7:30 PM CDT Gender Identity Not on file Sexual Orientation Not on file documented as of this encounter Miscellaneous Notes * Cerner Conversion Note - Jessie Yuen MD - 08/28/2020 11:43 AM DIGITAL PRODUCTION OPERATOR Patient: SKYLER MONTOYA Age: 79 years Sex: Female : 1940 Associated Diagnoses: None Author: SLICK BRADLEY, [facility] Ms. Montoya is 79 yo [...] Slick Bradley, Dana Electronically signed by Sivan [facility] Conversion Social Work Instructor Cerner at 02/04/2023 1:57 PM CDT documented in this encounter Plan of Treatment Not on file documented as of this encounter Visit Diagnoses Not on filedocumented in this encounter Care Teams Music Director Relationship Specialty Start Date End Date Jay Howell MD [address] [place] [phone] PCP - General Emergency Medicine 11/12/23 documented as of this encounter
== END 2025-08-07 23:59 | disposition home or self-care (01) ==
PROVIDERS: PCP Family Medicine; Visit Provider Family Medicine
DX: D64.9 Anemia, unspecified (principal)
CPT/HCPCS: 36415; 85025

== ENCOUNTER 2025-08-14 08:43 | Outpatient (CLI) | payer MEDICARE, SELFPAY ==
[2025-08-14 08:45] LABS: Microscopic, Urine URINE MICROSCOPIC (MICROSCOPIC)
[2025-08-14 09:03] LABS: Hematocrit 26.7 % (37.0-47.0); Hemoglobin 8.8 g/dL (12.2-16.2); Immature Granulocytes % 0.8 %; Mean Corpuscular HGB Conc 33.0 g/dL (31.8-35.4); Mean Corpuscular Hemoglobin 37.0 pg (27.0-31.2); Mean Corpuscular Volume 112.2 fl (81-99); Nucleated Red Blood Cells % 0 %; Platelet Count 89 K/mm3 (142-424); Red Blood Count 2.38 M/mm3 (4.20-5.40); Red Cell Distribution Width-SD 57.9 fL; White Blood Count 3.8 K/mm3 (4.8-10.8)
--- OUTSIDE RECORDS SUMMARY | 2025-08-14 09:14 | XMS_ITS | Clinical Summary ---
Author Organization [facility] Address [address] [place] [address], [address] [place] [address] Care Team Providers Care C Architect Name Role Phone Jay Howell MD Primary Care Provider [phone] Allergies Active Allergy Reactions Criticality Noted Date [...] patient's age to complete [place] [address] MEDICARE Care Teams C Architect Relationship Specialty Start Date End Date Jay Howell MD Clinic [place] [phone] PCP - General Emergency Medicine 03/06/25
[2025-08-14 11:25] LABS: Bilirubin,Urine Negative (Negative); Color,Urine YELLOW (Yellow); Glucose,Urine (UA) Negative (Negative); Ketones,Urine Negative (Negative); Leukocyte Esterase,Urine Negative (Negative); PH,Urine 6.0 (5.0-8.5); Protein,Urine Negative (Negative); Specific Gravity, Urine 1.010 (1.005-1.030); Urobilinogen,Urine 0.2 EU/dl (0.2)
[2025-08-14 12:10] LABS: Bacteria,Urine Trace /lpf; WBC,Urine Occasional #/hpf (0-3)
== END 2025-08-14 23:59 | disposition home or self-care (01) ==
PROVIDERS: PCP Family Medicine; Visit Provider Family Medicine
DX: D64.9 Anemia, unspecified (principal); Z87.440 Personal history of urinary (tract) infections
CPT/HCPCS: 36415; 81001; 85025; 87086

== ENCOUNTER 2025-08-16 08:59 | Outpatient (CLI) | payer MEDICARE, SELFPAY ==
--- OUTSIDE RECORDS SUMMARY | 2025-02-05 08:00 | XMS_ITS | Encounter Summary ---
Author Organization [place] [address] Care Team Providers Care Conveyancer Name Role Phone No Pcp, Per Patient Primary Care Provider Evelyne prabhakar Encounter Details Date Type Department Care Team (Latest Contact Info) Description 02/05/2025 8:00 AM EDT Hospital Encounter SE Referral Lab 1 [place] [phone] Valentino Ugalde MD 47 [facility] [address] [place] [address] Encounter for general adult medical examination without abnormal findings Social History Tobacco Use Types Packs/Day Years Used Date Smoking Tobacco: Former Cigarettes Q uit: 1991 Passive Smoke Exposure: Past Smokeless Tobacco: Never Alcohol Use Standard Drinks/Week Comments Not Currently 0 (1 standard drink = 0.6 oz pur e alcohol) [facility] Utilities Answer Date Recorded In the past 12 months has [employer] electric, gas, oil, or water company threatened to shut off services in your home? No 06/23/2025 Overall Financial Resource Strain (CARDIA) Answe r Date Recorded How hard is it for you to pa y for the very basics like food, housing, medical care, and heating? Not very hard 06/23/2025 PHQ-2 Answer Date Recorded PHQ-2 Total Score 0 06/23/2025 [facility] [place] of Occupat ional Health - Occupational [...] money to get more. Never true 06/23/2025 [facility] IP Transportation Answer D ate Recorded In [...] 1:16 PM EDT Emiliano Jimenez RN * [place] Suicide Severity Rating Scale (Q shift for [...] Care Team (Late st Contact Info) Description 08/19/2025 2:00 PM EST Office Visit [facility]P Vascular Surg Edg [address] [place] [address] [place] [address] Vargas Wolf MD [address] [place] [address] documented as of this encounter Results * (ABNORMAL) PREALBUMIN (02/12/2025 4:50 AM EDT) Prealbumin 8.9(L) 20.0 - 40.0 mg/dL 02/12/2025 7:15 AM EDT [facility] Blood VENOUS BLOOD / Unknown Venipuncture / Unknown 02/12/2025 4:50 AM EDT 02/12/2025 6:30 AM EDT us Valentino Ugalde MD CHEMISTRY ORDERABLES Final Resu lt [facility] [address] [facility] , [address] [place] [phone] documented in this encounter Visit Diagnoses Diagnosis Encounter for general adult medical examination without abnormal findings Routine general medical examination at a health care facility PAD (peripheral artery disease)- Primary Unspecified disorders of arteries and arterioles documented in this encounter Additional Health Concerns Infection Onset Date Last Indicated Resolved Time ESBL organism Comment:ESBL urine: 05/23, 06/1205/23/2025 06/12/2025 documented as of this encounter Care Teams Conveyancer Relationship Specialty Start Date End Date No Pcp, Per Patient PCP - General 06/04/24 documented as of this encounter
--- OUTSIDE RECORDS SUMMARY | 2025-02-05 08:00 | XMS_ITS | Encounter Summary ---
Author Organization [place] [address] Care Team Providers Care Passenger Car Cleaning Supervisor Name Role Phone No Pcp, Per Patient Primary Care Provider Evelyne prabhakar Encounter Details Date Type Department Care Team (Latest Contact Info) Description 02/05/2025 8:00 AM EDT Hospital Encounter SE Referral Lab 1 [place] [id number] Valentino Ugalde MD 47 [facility] [address] [place] [address] Encounter for general adult medical examination without abnormal findings Social History Tobacco Use Types Packs/Day Years Used Date Smoking Tobacco: Former Cigarettes Q uit: 1991 Passive Smoke Exposure: Past Smokeless Tobacco: Never Alcohol Use Standard Drinks/Week Comments Not Currently 0 (1 standard drink = 0.6 oz pur e alcohol) [facility] Utilities Answer Date Recorded In the past 12 months has [employer] electric, gas, oil, or water company threatened to shut off services in your home? No 06/23/2025 Overall Financial Resource Strain (CARDIA) Answe r Date Recorded How hard is it for you to pa y for the very basics like food, housing, medical care, and heating? Not very hard 06/23/2025 PHQ-2 Answer Date Recorded PHQ-2 Total Score 0 06/23/2025 [facility] [place] of Occupat ional Health - Occupational Stress [...] money to get more. Never true 06/23/2025 [facility] IP Transportation [...] 1:16 PM EDT Emiliano Jimenez RN * [place] Suicide Severity Rating Scale (Q shift for [...] EST Office Visit [facility] [address] [place] [address] [place] [phone] Vargas Wolf MD [address] [place] [address] documented as of this encounter Results [...] 6:52 AM EDT [facility] Barry Percent 12.7 % 02/12/2025 6:52 AM EDT [facility] Eos Percent 0.0 % 02/12/2025 6:52 AM EDT [facility] Baso Percent 0.6 % 02/12/2025 6:52 AM EDT [facility] Neut # 1.6 1.6 - 6.1 x10(3)/[facility] 02/12/2025 6:52 AM EDT [facility] [employer], [facility] Comment:Neutrophils equals s egs plus bands IMMGRAN# 0.0 0.0 - 0.1 x10(3)/[facility] 02/12/2025 6:52 AM EDT [facility] [employer], [facility] Comment:Automated count of m etamyelocytes, myelocytes and promyelocytes. An absolute IG <0.1 is reported as 0.0. Lymph # 1.3 1.2 - 3.9 x10(3)/[facility] 02/12/2025 6:52 AM EDT [facility] Barry # 0.4 0.3 - 0.9 x10(3)/[facility] 02/12/2025 6:52 AM EDT [facility] [employer], [facility] Eos# 0.0 0.0 - 0.5 x10(3)/[facility] 02/12/2025 6:52 AM EDT [facility] [employer], [facility] Baso # 0.0 0.0 - 0.1 x10(3)/[facility] 02/12/2025 6:52 AM EDT [facility] [employer], [facility] Blood VENOUS BLOOD / Unknown Venipuncture / Unknown 02/12/2025 4:50 AM EDT 02/12/2025 6:30 AM EDT us Valentino Ugalde MD HEMATOLOGY ORDERABLES Final Res ult [facility] [employer], [address] , [place] [address] documented in this encounter Visit Diagnoses Diagnosis [...] documented as of this encounter Care Teams Passenger Car Cleaning Supervisor Relationship Specialty Start Date End Date No Pcp, Per Patient PCP - General 06/04/24 documented as of this encounter
--- OUTSIDE RECORDS SUMMARY | 2025-02-05 08:00 | XMS_ITS | Encounter Summary ---
Author Organization [place] [address] Care Team Providers Care Regional Manager Name Role Phone No Pcp, Per Patient Primary Care Provider Evelyne prabhakar Encounter Details Date Type Department Care Team (Latest Contact Info) Description 02/05/2025 8:00 AM EDT Hospital Encounter SE Referral Lab 1 [place] [phone] Valentino Ugalde MD 47 [facility] [address] [place] [address] Encounter for general adult medical examination without abnormal findings Social History Tobacco Use Types Packs/Day Years Used Date Smoking Tobacco: Former Cigarettes Q uit: 1991 Passive Smoke Exposure: Past Smokeless Tobacco: Never Alcohol Use Standard Drinks/Week Comments Not Currently 0 (1 standard drink = 0.6 oz pur e alcohol) [facility] Utilities Answer Date Recorded In the past 12 months has [employer] electric, gas, oil, or water company threatened to shut off services in your home? No 06/23/2025 Overall Financial Resource Strain (CARDIA) Answe r Date Recorded How hard is it for you to pa y for the very basics like food, housing, medical care, and heating? Not very hard 06/23/2025 PHQ-2 Answer Date Recorded PHQ-2 Total Score 0 06/23/2025 [facility] [place] of Occupat ional Health - Occupational Stress [...] money to get more. Never true 06/23/2025 [facility] IP Transportation Answer D ate [...] 1:16 PM EDT Emiliano Jimenez RN * [place] Suicide Severity Rating Scale (Q shift for [...] EST Office Visit [facility] [address] [place] [address] [place] [phone] Vargas Wolf MD [address] [place] [address] documented as of this encounter Results * (ABNORMAL) COMPREHENSIVE METABOLIC PANEL (02/12/2025 4:50 AM EDT) [facility] Sodium 136 136 - 145 mmol/L 02/12/2025 [...] recommended by the National Kidney Foundation - [place] Society of Nephrology Task Force. Blood VENOUS BLOOD / Unknown Venipuncture / Unknown 02/12/2025 4:50 AM EDT 02/12/2025 6:30 AM EDT us Valentino Ugalde MD CHEMISTRY ORDERABLES Final Resu lt [facility] [employer] [employer] [address] [place] [address] , [place] [address] documented in this encounter Visit Diagnoses Diagnosis [...] documented as of this encounter Care Teams Regional Manager Relationship Specialty Start Date End Date No Pcp, Per Patient PCP - General 06/04/24 documented as of this encounter
--- OUTSIDE RECORDS SUMMARY | 2025-02-05 08:00 | XMS_ITS | Encounter Summary ---
Author Organization [place] [address] Care Team Providers Care Prefitter Name Role Phone No Pcp, Per Patient Primary Care Provider Evelyne prabhakar Encounter Details Date Type Department Care Team (Latest Contact Info) Description 02/05/2025 8:00 AM EDT Hospital Encounter SE Referral Lab 1 [place] [phone] Valentino Ugalde MD 47 [facility] [address] [place] [address] Encounter for general adult medical examination without abnormal findings Social History Tobacco Use Types Packs/Day Years Used Date Smoking Tobacco: Former Cigarettes Q uit: 1991 Passive Smoke Exposure: Past Smokeless Tobacco: Never Alcohol Use Standard Drinks/Week Comments Not Currently 0 (1 standard drink = 0.6 oz pur e alcohol) [facility] Utilities Answer Date Recorded In the past 12 months has [employer] electric, gas, oil, or water company threatened to shut off services in your home? No 06/23/2025 Overall Financial Resource Strain (CARDIA) Answe r Date Recorded How hard is it for you to pa y for the very basics like food, housing, medical care, and heating? Not very hard 06/23/2025 PHQ-2 Answer Date Recorded PHQ-2 Total Score 0 06/23/2025 [facility] [place] of Occupat ional Health - Occupational Stress [...] to get more. Never true 06/23/2025 [facility] IP Transportation Answer D ate Recorded In [...] 1:16 PM EDT Emiliano Jimenez RN * [place] Suicide Severity Rating Scale (Q shift for [...] EST Office Visit [facility] [address] [place] [address] [place] [phone] Vargas Wolf MD [address] [place] [address] Scheduled Orders Name Type Priority Associated [...] documented as of this encounter Care Teams Prefitter Relationship Specialty Start Date End Date No Pcp, Per Patient PCP - General 06/04/24 documented as of this encounter
--- OUTSIDE RECORDS SUMMARY | 2025-02-05 08:00 | XMS_ITS | Encounter Summary ---
Author Organization [place] [address] Care Team Providers Care Insurance Broker Name Role Phone No Pcp, Per Patient Primary Care Provider Evelyne prabhakar Encounter Details Date Type Department Care Team (Latest Contact Info) Description 02/05/2025 8:00 AM EDT Hospital Encounter SE Referral Lab 1 [place] [id number] Valentino Ugalde MD 47 [facility] [address] [place] [address] Encounter for general adult medical examination without abnormal findings Social History Tobacco Use Types Packs/Day Years Used Date Smoking Tobacco: Former Cigarettes Q uit: 1991 Passive Smoke Exposure: Past Smokeless Tobacco: Never Alcohol Use Standard Drinks/Week Comments Not Currently 0 (1 standard drink = 0.6 oz pur e alcohol) [facility] Utilities Answer Date Recorded In the past 12 months has [employer] electric, gas, oil, or water company threatened to shut off services in your home? No 06/23/2025 Overall Financial Resource Strain (CARDIA) Answe r Date Recorded How hard is it for you to pa y for the very basics like food, housing, medical care, and heating? Not very hard 06/23/2025 PHQ-2 Answer Date Recorded PHQ-2 Total Score 0 06/23/2025 [facility] [place] of Occupat ional Health - Occupational Stress [...] 06/23/2025 [facility] IP Transportation Answer D ate Recorded [...] containing alcohol? 0 04/30/2025 10:00 PM EDT Nroa Paez RN How many drinks containing alcohol [...] 1:16 PM EDT Emiliano Jimenez RN * [place] Suicide Severity Rating Scale (Q shift for [...] EST Office Visit [facility] [address] [place] [address] [place] [phone] Vargas Wolf MD [address] [place] [address] [place] [address] Scheduled Orders Name Type Priority Associated [...] documented as of this encounter Care Teams Insurance Broker Relationship Specialty Start Date End Date No Pcp, Per Patient PCP - General 06/04/24 documented as of this encounter
--- OUTSIDE RECORDS SUMMARY | 2025-02-07 08:42 | XMS_ITS | Encounter Summary ---
Author Organization [place] [address] Care Team Providers Care Powder Expert Name Role Phone No Pcp, Per Patient Primary Care Provider Evelyne prabhakar Encounter Details Date Type Department Care Team (Latest Contact Info) Description 02/07/2025 8:42 AM EDT Hospital Encounter [facility] Referral Lab 1 [place], [place] [phone] Encounter for general adult medical examination without abnormal findings Social History Tobacco Use Types Packs/Day Years Used Date Smoking Tobacco: Former Cigarettes Q uit: 1991 Passive Smoke Exposure: Past Smokeless Tobacco: Never Alcohol Use Standard Drinks/Week Comments Not Currently 0 (1 standard drink = 0.6 oz pur e alcohol) [facility] Utilities Answer Date Recorded In the past 12 months has [employer] electric, gas, oil, or water company threatened to shut off services in your home? No 06/23/2025 Overall Financial Resource Strain (CARDIA) Answe r Date Recorded How hard is it for you to pa y for the very basics like food, housing, medical care, and heating? Not very hard 06/23/2025 PHQ-2 Answer Date Recorded PHQ-2 Total Score 0 06/23/2025 [facility] [place] of Occupat ional Health - Occupational Stress [...] more. Never true 06/23/2025 [facility] IP Transportation Answer D ate Recorded [...] 1:16 PM EDT Emiliano Jimenez RN * [place] Suicide Severity Rating Scale (Q shift for [...] EST Office Visit [facility] [address] [place] [address] [place] [phone] Vargas Wolf MD [address] [place] [address] Scheduled Orders Name Type Priority Associated [...] documented as of this encounter Care Teams Powder Expert Relationship Specialty Start Date End Date No Pcp, Per Patient PCP - General 06/04/24 documented as of this encounter
--- OUTSIDE RECORDS SUMMARY | 2025-06-23 13:13 | XMS_ITS | Encounter Summary ---
Author Organization [place] [address] Care Team Providers Care Terminal Gauger Supervisor Name Role Phone No Pcp, Per Patient Primary Care Provider Evelyne prabhakar Reason for Visit * Reason Comments Atrial Fibrillation [facility] they report HR of 180, per squad HR 103. * Auth/Cert/Inpt (Routine) Specialty Diagnoses / Procedures Referred By Contac t Referred To Contact Diagnoses Atrial fibrillation with RVR (HCC) Paroxysmal atrial fibrillation (HCC) Referral ID Status Reason Start Date Expiration Date Visits Re quested Visits Authorized [id number] 1 Encounter Details Date Type Department Care Team (Latest Contact Info) Description 06/23/2025 1:13 PM EDT - 07/02/2025 10:57 AM EDT Hospital Encounter [facility] [address] [place] [address] Stephan Rodriguez MD [address] [place] [address] Duong Vitale MD [address] [place] [address] Atrial fibrillation with RVR (HCC) (Primary Dx); Acute pulmonary edema (HCC); Elevated troponin; Pleural effusion Discharge Disposition: [facility] Social History Tobacco Use Types Packs/Day Years Used Date Smoking Tobacco: Former Cigarettes Q uit: 1991 Passive Smoke Exposure: Past Smokeless Tobacco: Never Alcohol Use Standard Drinks/Week Comments Not Currently 0 (1 standard drink = 0.6 oz pur e alcohol) [facility] Utilities Answer Date Recorded In the [...] Date Recorded PHQ-2 Total Score 0 06/23/2025 [facility] - Occupational Stress Questionnaire Answer Date [...] get more. Never true 06/23/2025 [facility] IP Transportation Answer [...] Sign Reading Time Taken Comments Blood Pressure 152/80 07/02/2025 9:37 AM EDT Pulse 85 07/02/2025 9:37 AM EDT Temperature 36.6 C (97.8 F) 07/02/2025 9:37 AM EDT Respiratory Rate 18 07/02/2025 9:37 AM EDT Oxygen Saturation 100% 07/02/2025 9:37 AM EDT Inhaled Oxygen Concentration - - Weight 49 kg (108 lb 0.4 oz) 07/02/2025 2:10 AM EDT Height - - Body Mass Index 19.76 06/12/2025 8:24 PM EDT documented in this encounter Functional Status * Question Answer [...] 1:16 PM EDT Emiliano Jimenez RN * [place] Suicide Severity Rating Scale (Q shift for [...] Jimenez RN documented as of this encounter Discharge Summaries * Jacob Horowitz MD - 07/02/2025 10:57 AM EDT [facility] Discharge Summary Patient Name: Skyler Bautista : 1940 Admit Date: 06/23/2025 Discharge Date: Admitting Physician: Duong Vitale MD Discharging Physician: Jacob Horowitz MD Reason for Hospitalization: Active Hospital Problems 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) Seizure (HCC) Respiratory arrest (HCC) Atrial fibrillation with slow ventricular response (HCC) *Atrial fibrillation with RVR (HCC) Acute pulmonary edema (HCC) Anemia in other chronic diseases classified elsewhere Stage 3a chronic kidney disease (HCC) Chest pain, unspecified type // Elevated troponin Acute on chronic heart failure with preserved ejection fraction (HCC) Hx of subarachnoid hemorrhage // 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 Hospital course complicated with bradycardia, respiratory failure which required intubation and patient was on mechanical ventilation. There was a concern for seizure-like activity. Seen by cardiology pulmonologyand neurology. Placed on Keppra. Eventually extubated and respiratory status is stable. Dose of gabapentin increased for phantom limb pain. Patient is not a candidate for anticoagulation due to priorhistory of anemia and subarachnoid bleed. Evaluated by therapy and recommended rehab. Seen and exami janet today and stable for discharge. Labs and imaging follow-up needed: Pending Labs Order Current Status Collection Date and Time MAGNESIUM LEVEL In process 06/28/2025 11:26 AM ECG AND WAVEFORMS - TELEMETRY Preliminary result 06/23/2025 7:59 PM ECG AND WAVEFORMS - TELEMETRY Preliminary result 06/23/2025 8:25 PM ECG AND WAVEFORMS - TELEMETRY Preliminary result 06/23/2025 8:32 PM ECG AND WAVEFORMS - TELEMETRY Preliminary result 06/23/2025 8:38 PM ECG AND WAVEFORMS - TELEMETRY Preliminary result 06/23/2025 9:16 PM ECG AND WAVEFORMS - TELEMETRY Preliminary result 06/23/2025 11:57 PM Consultants: Treatment Team: Consulting Physician: Rusty Sawyer MD Discharge Exam: Vitals: 06/28/25 1140 BP: 118/63 Pulse: 79 Resp: 16 Temp: 97.8 ??F (36.6 ??C) SpO2: 100% See Progress Note Correct Full Discharge Med List: Medication List START taking these medications levETIRAcetam 750 mg Tab Dose: 750 mg Qty: 60 Tablet Refills: 0 Commonly known as: KEPPRA 750 mg, Oral, 2 TIMES DAILY losartan 25 mg Tab Dose: 25 mg Qty: 30 Tablet Refills: 0 Commonly known as: COZAAR 25 mg, Oral, DAILY metoprolol 25 mg Tab Dose: 25 mg Qty: 60 Tablet Refills: 0 Commonly known as: LOPRESSOR 25 mg, Oral, 2 TIMES DAILY CHANGE how you take these medications fUROsemide 40 mg Tab Dose: 40 mg Qty: 30 Tablet Refills: 0 Commonly known as: LASix 40 mg, Oral, DAILY What changed: when to take this reasons to take this CONTINUE taking these medications acetaminophen 500 mg Tab Dose: 1,000 mg Refills: 0 Commonly known as: TYLENOL ANTACID ULTRA STRENGTH 400 mg calcium (1,000 mg) Chew Dose: 1,000 mg Refills: 0 Generic drug: Calcium Carbonate atorvastatin 40 mg Tab Dose: 40 mg Refills: 0 Commonly known as: LIPITOR cyanocobalamin 1,000 mcg Tab Dose: 1,000 mcg Refills: 0 dorzolamide-timoloL 22.3-6.8 mg/mL Drop Dose: 1 Drop Refills: 0 Commonly known as: COSOPT latanoprost 0.005 % Drop Dose: 1 Drop Qty: 2.5 mL Refills: 0 Comment: Make sure original prescriber is OK with it. Commonly known as: XALATAN 1 Drop, Ophthalmic, NIGHTLY lidocaine 4 % Ptmd Dose: 1 Patch Qty: 15 Patch Refills: 0 Commonly known as: ASPERCREME 1 Patch, Transdermal, DAILY nalOXone 4 mg/actuation Twisp Dose: 4 mg Qty: 1 Each Refills: 0 Commonly known as: NARCAN 4 mg, Nasal, PRN, [place] the contents of one device (0.1mL) into one nostril upon signs of opioid overdose. Call 911. May repeat dose in other nostril if no response within 2-3 minutes. nortriptyline 10 mg Cap Dose: 10 mg Qty: 15 Capsule Refills: 0 Commonly known as: PAMELOR 10 mg, Oral, NIGHTLY pantoprazole 40 mg Tbec Dose: 40 mg Qty: 60 Tablet Refills: 0 Commonly known as: PROTONIX 40 mg, Oral, 2 TIMES DAILY polyethylene glycol 17 gram Pwpk Dose: 17 g Refills: 0 Commonly known as: GLYCOLAX, MIRALAX ranolazine 500 mg Tb12 Dose: 1,000 mg Refills: 0 Commonly known as: RANEXA STOP taking these medications ALPRAZolam 0.5 mg Tab Commonly known as: XanAX carvediloL 25 mg Tab Commonly known as: COREG ERTAPENEM INJ gabapentin 300 mg Cap Commonly known as: NEURONTIN oxyCODONE 5 mg Tab Commonly known as: ROXICODONE ASK your doctor about these medications gabapentin 300 mg Cap Dose: 300 mg Qty: 9 Capsule Refills: 0 Commonly known as: NEURONTIN 300 mg, Oral, 3 TIMES DAILY Ask about: Should I take this medication? oxyCODONE 5 mg Tab Dose: 5-10 mg Qty: 12 Tablet Refills: 0 Commonly known as: ROXICODONE 5-10 mg, Oral, EVERY 4 HOURS PRN Ask about: Should I take this medication? Notes to patient: Last Dose 07/02 at 0946 Where to Get Your Medications These medications were sent to [facility] [place] [address] [address] [facility] - [phone] [place] [id number] fUROsemide 40 mg Tab gabapentin 300 mg Cap levETIRAcetam 750 mg Tab losartan 25 mg Tab metoprolol 25 mg Tab oxyCODONE 5 mg Tab Condition at Discharge: stable Disposition: SNF Follow-up: [facility] [address] [place] [address] Call FOLLOW UP IN 2 WEEKS TO DISCUSS CATHETER, SOON IF YOU WOULD LIKE IT REMOED SOONER. [facility] [address] [id number] Jacob Horowitz MD 07/02/2025 Time spent: More than 30 minutes documented in this encounter Discharge Instructions * Discharge Instructions* Laury España RN - 07/02/2025 10:34 AM EDT * Discharge Instr - Diet* Denisa Armando RD, LD - 06/26/2025 2:02 PM EDT Continue a heart healthy diabetic diet with Glucerna between meals (2x/day) * Attachments The following attachments cannot be sent through Care Everywhere. * Heart failure in adults ??? Discharge instructions ([place]izen [place]) * Losartan ([place]) * Levetiracetam ([place]) * Metoprolol ([place]) documented in this encounter Medications at Time [...] Tablet Take 1,000 mcg by mouth daily. dorzolamide-brianna loL (COSOPT) 22.3-6.8 mg/mL Opht Drops Place 1 Drop into both eyes nightly. instill 1 drop in both eyes at bedtime for glaucoma latanoprost (XALATAN) 0.005 % Opht Drops Apply 1 Drop to eye nightly. 2.5 mL 06/10/2025 lidocaine (ASPERCREME) 4 % Top Adhesive Patch, Medicated Place 1 Patch onto the skin daily. 15 Patch 06/11/2025 losartan (COZAAR) 25 mg Oral Tablet Take 1 Tablet by mouth daily for 30 days. 30 Tablet 06/29/2025 nalOXone (NARCAN) 4 mg/actuation Nasl [place], Non-Aerosol 0.1 mL by Nasal route as needed for Opioid Reversal. [place] the contents of one device (0.1mL) into [...] Take 1,000 mg by mouth daily. 12/25/2018 fUROsemide (LASIX) 40 mg Oral Tablet Take 1 Tablet by mouth daily for 30 days. 30 Tablet 06/29/2025 08/05/2025 levETIRAcetam (KEPPRA) 750 mg Oral Tablet Take 1 Tablet by mouth 2 times daily for 30 days. 60 Tablet 06/28/2025 07/28/2025 metoprolol (LOPRESSOR) 25 mg Oral Tablet Take 1 Tablet by mouth 2 times daily for 30 days. 60 Tablet 06/28/2025 07/28/2025 documented as of this encounter Ordered Prescriptions Prescription Sig Dispense Quantity Refills Last Filled Start Date End Date losartan (COZAAR) 25 mg Oral Tablet Take 1 Tablet by mouth daily for 30 days. 30 Tablet 06/29/2025 oxyCODONE (ROXICODONE) 5 mg Oral Tablet Take 1-2 Tablets by mouth every 4 hours as needed for Acute Pain (R52) for up to 3 days. 12 Tablet 06/28/2025 5 metoprolol (LOPRESSOR) 25 mg Oral Tablet Take 1 Tablet by mouth 2 times daily for 30 days. 60 Tablet 06/28/2025 5 levETIRAcetam (KEPPRA) 750 mg Oral Tablet Take 1 Tablet by mouth 2 times daily for 30 days. 60 Tablet 06/28/2025 gabapentin (NEURONTIN) 300 mg Oral Capsule Take 1 Capsule by mouth 3 times daily for 3 days. 9 Capsule 06/28/2025 5 fUROsemide (LASIX) 40 mg Oral Tablet Take 1 Tablet by mouth daily for 30 days. 30 Tablet 06/29/2025 5 documented in this encounter Discharge Disposition Disposition Code Departure Means Destination Comment s [facility] Car Other Facil mari Guzmán documented in this encounter Progress Notes * Jacob Horowitz MD - 07/02/2025 7:59 AM EDT PROGRESS NOTE Assessment/Plan: Acute respiratory failure with hypoxia Resolved. On room air. Extubated. A-fib with tachybradycardia Resolved. Continue p.o. Toprol 25 mg daily No anticoagulation due to anemia, thrombocytopenia and history of subarachnoid bleed Cardiology signed off. Seizure-like activity Prior history of traumatic brain injury CT head with no acute findings. Right paranasal sinus disease. On p.o. Keppra Neurology consulted and signed off. 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 Continue p.o. gabapentin Caution with narcotics. On p.o. oxycodone. Acute on chronic diastolic heart failure Compensated. Last echo with normal LVEF, severe tricuspid regurgitation, RVSP 41 mmHg Continue p.o. Lasix 40 mg daily History of pulm embolism Not on anticoagulation due to subarachnoid bleed. Anemia Hemoglobin stable. Thrombocytopenia Platelet counts are improving. Type 2 diabetes mellitus Blood sugar stable. Continue sliding scale insulin. Constipation Had bowel movement. Continue bowel regimen. History of subarachnoid hemorrhage/traumatic brain injury Hold anticoagulation. Dispo: Okay to rehab. 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 Had bowel movement. Objective: BP 120/53 (BP Location: Left arm, Patient Position: Lying right side) Pulse 87 Temp 97.8 ??F (36.6 ??C) (Oral) Resp 16 Wt 108 lb 0.4 oz (49 kg) SpO2 93% BMI 19.76 kg/m?? I/O last 3 completed shifts: In: 930 [P.O.:930] Out: 925 [Urine:925] Weight: 108 lb 0.4 oz (49 kg) Constitutional: Alert and oriented to person, place, and time. No distress. Cardiovascular: Normal rate and regular rhythm. Exam reveals no friction rub. No murmur heard. Pulmonary/Chest: Effort normal and breath sounds normal. No respiratory distress. There are no wheezes. Abdominal: Soft. Bowel sounds are normal. No distension. There is no tenderness. There is no rebound and no guarding. Musculoskeletal: Left AKA stump with no tenderness Neurological: Grossly normal. Skin: Skin is warm and dry. No erythema. Labs: Laboratory data and diagnostic testing reviewed 07/02/25. Jacob Horowitz MD 07/02/2025 12:10 PM This note was generated using voice recognition technology. It has been reviewed by the undersigned, however, may still contain unintended errors * Chapin Meyers - 07/01/2025 6:25 PM EDT Images from the original note were not included. 07/01/25 1800 Reason for Visit Date of visit 07/01/25 Visited With Patient not available Visited By CPE Manager Retail Reason for Visit Hospitality visit;Spiritual, emotional or social support Patient Assessment Patient Mosque at Registration Yarsanism Care Plan Plan for Follow-Up Harness Preparer(s) remains available as needed Chapin Meyers Harness Preparer, Pastoral and Spiritual Care For non-urgent requests, please place a Pastoral Care consult in [facility]. For all urgent matters, please send an urgent [facility] Secure Chat to the Pastoral Care group at your location. Between 11pm and 7am, please use On-Call Finder to send an [facility] Secure Chat to the on-call grid casting machine operator helper. Pastoral Care office phone numbers: EDG/COV/GRT [phone], [place] [phone], FTT [phone], DBN [phone] * Kailee Mena BSW - 07/01/2025 3:43 PM EDT 07/01/25 1542 Discharge Planning Evaluation Actual Discharge Plan 9.15--SW FINAL NOTE. Patient is set for discharge to [facility] on Tuesday. Family to transport at 10 am. Nursing report number provided to staff. Patient admitted at [facility] loc. All parties updated and aware. No further needs noted. Final Note Post Acute Facility [facility] Post Acute Form Completed Yes Care Coordination Discharge Ready? Yes Transportation at Discharge Personal vehicle Date Expected 07/02/25 Confirmed Discharge Transportation Plan? Yes PASAR Completed Not Applicable Patient Aware and Agrees with DC Plan Yes Primary Caregiver/Legal Decision Maker aware and agree with Discharge Plan Yes Name of Family member notified adriana Family Member Notified Relationship to Patient Legal Next of Kin Does family and/or caregiver verbalize readiness, willingness, and ability to provide or support patient's self-management activities as appropriate? Yes, patient's primary caregiver reports no concerns regarding discharge plan MD Aware of Plan Yes RN Notified of Plan Yes * Lily Dinero OT - 07/01/2025 2:20 PM EDT 07/01/25 1420 OT Subjective Note Type Follow Up Treatment Attempt Patient Room/Unit 436 OT Subjective Comments #1 I'm leaving Others Present/Assisting Nicole INSIDE SALES RECRUITER Therapy delay reason Patient refused * Manuel Frey RN - 07/01/2025 1:52 PM EDT Patient has been accepted to [facility] on Tuesday. nursing report number is [phone]. pharmacy has been changed.Family to provide transport at 10:00 am. please pass along to next shift. thanks! * Nicole Caicedo PTA - 07/01/2025 1:12 PM EDT 07/01/25 1125 PT Subjective Note Type Follow Up Treatment Attempt Patient Room/Unit TCU;4N PT Subjective Comments #1 pt refused to get up states leaving to [facility] in [place] attempted to redirect unsuccessfully. Therapy delay reason Patient declined * Kailee Mena BSW - 07/01/2025 10:54 AM EDT 07/01/25 1053 Ongoing Discharge Planning Evaluation Actual Discharge Plan 07.01-- UPDATE. SW left a few messages with [facility] admission coordinator to determine if patient is able to admit to their facility today. To follow. * Jacob Horowitz MD - 07/01/2025 7:43 AM EDT PROGRESS NOTE Assessment/Plan: Acute respiratory failure with hypoxia Resolved. On room air. Extubated. A-fib with tachybradycardia Resolved. Continue p.o. Toprol 25 mg daily No anticoagulation due to anemia, thrombocytopenia and history of subarachnoid bleed Cardiology signed off. Seizure-like activity Prior history of traumatic brain injury CT head with no acute findings. Right paranasal sinus disease. On p.o. Kepp Neurology consulted and signed off. 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 Continue p.o. gabapentin Caution with narcotics. On p.o. oxycodone. Acute on chronic diastolic heart failure Compensated. Last echo with normal LVEF, severe tricuspid regurgitation, RVSP 41 mmHg Continue p.o. Lasix 40 mg daily Close monitoring of renal function. Creatinine today is 0.82. History of pulm embolism Not on anticoagulation due to subarachnoid bleed. Anemia Hemoglobin stable. Thrombocytopenia Platelet counts are improving. Type 2 diabetes mellitus Blood sugar stable. Continue sliding scale insulin. Constipation Give mag citrate. History of subarachnoid hemorrhage/traumatic brain injury Hold anticoagulation. Dispo: Discussed with RN, childbirth and infant care teacher. Awaiting facility in [place]. 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 No bowel movement for few days. Objective: BP 114/67 (BP Location: Left arm, Patient Position: Semi Fowlers) Pulse 80 Temp 97.2 ??F (36.2 ??C) (Axillary) Resp 14 Wt 110 lb 7.2 oz (50.1 kg) SpO2 97% BMI 20.20 kg/m?? I/O last 3 completed shifts: In: 237 [P.O.:237] Out: 980 [Urine:980] Weight: 110 lb 7.2 oz (50.1 kg) Constitutional: Alert and oriented to person, place, and time. No distress. Cardiovascular: Normal rate and regular rhythm. Exam reveals no friction rub. No murmur heard. Pulmonary/Chest: Effort normal and breath sounds normal. No respiratory distress. There are no wheezes. Abdominal: Soft. Bowel sounds are normal. No distension. There is no tenderness. There is no rebound and no guarding. Musculoskeletal: Left AKA stump Neurological: Grossly normal. Skin: Skin is warm and dry. No erythema. Labs: Laboratory data and diagnostic testing reviewed 07/01/25. Jacob Horowitz MD 07/01/2025 11:39 AM This note was generated using voice recognition technology. It has been reviewed by the undersigned, however, may still contain unintended errors * Jacob Horowitz MD - 06/30/2025 9:04 AM EDT PROGRESS NOTE Assessment/Plan: Acute respiratory failure with hypoxia Improved. Extubated on room air. A-fib with tachybradycardia Resolved. Continue p.o. Toprol 25 mg daily No anticoagulation due to anemia, thrombocytopenia and history of subarachnoid bleed Cardiology signed off. Seizure-like activity Prior history of traumatic brain injury CT head with no acute findings. Right paranasal sinus disease. On p.o. Camilo Neurology consulted and signed off. 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 Decrease dose of p.o. gabapentin to 200 mg 3 times daily. Continue p.o. oxycodone. Acute on chronic diastolic heart failure Compensated. Last echo with normal LVEF, severe tricuspid regurgitation, RVSP 41 mmHg Continue p.o. Lasix 40 mg daily. History of pulm embolism Not on anticoagulation due to subarachnoid bleed. Anemia Hemoglobin stable. Thrombocytopenia Platelet counts are improving. Type 2 diabetes mellitus Blood sugar stable. Continue sliding scale insulin. History of subarachnoid hemorrhage/traumatic brain injury Hold anticoagulation. Dispo: Continue current care. Discussed with RN. Awaiting placement for facility in [place]. 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 Reports pain in left above-knee stump is better controlled. Objective: BP 137/67 (BP Location: Right arm, Patient Position: Semi Fowlers) Pulse 78 Temp 97.3 ??F (36.3??C) (Oral) Resp 14 Wt 110 lb 10.7 oz (50.2 kg) SpO2 99% BMI 20.24 kg/m?? I/O last 3 completed shifts: In: - Out: 600 [Urine:600] Weight: 110 lb 10.7 oz (50.2 kg) Constitutional: Alert and oriented to person, place, and time. No distress. Cardiovascular: Normal rate and regular rhythm. Exam reveals no friction rub. No murmur heard. Pulmonary/Chest: Effort normal and breath sounds normal. No respiratory distress. There are no wheezes. Abdominal: Soft. Bowel sounds are normal. No distension. There is no tenderness. There is no rebound and no guarding. Musculoskeletal: Left AKA stump Neurological: Grossly normal. Skin: Skin is warm and dry. No erythema. Labs: Laboratory data and diagnostic testing reviewed 06/30/25. Jacob Horowitz MD 06/30/2025 3:33 PM This note was generated using voice recognition technology. It has been reviewed by the undersigned, however, may still contain unintended errors * Jacob Horowitz MD - 06/29/2025 9:01 AM EDT PROGRESS NOTE Assessment/Plan: Acute respiratory failure with hypoxia Improved. Extubated on room air. A-fib with tachybradycardia Resolved. No bradycardia. Switch p.o. metoprolol to p.o. metoprolol succinate 25 mg daily. No anticoagulation due to anemia, thrombocytopenia and history of subarachnoid bleed Cardiology consulted and signed off. Seizure-like activity Prior history of traumatic brain injury CT head with no acute findings. Right paranasal sinus disease. On p.o. Keppra Neurology consulted and signed off. 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 P.o. gabapentin. Dose of gabapentin increased. Continue p.o. oxycodone Acute on chronic diastolic heart failure Compensated. Last echo with normal LVEF, severe tricuspid regurgitation, RVSP 41 mmHg P.o. Lasix. History of pulm embolism Not on anticoagulation due to subarachnoid bleed. Anemia Hemoglobin stable. Thrombocytopenia Platelet counts are improving. Type 2 diabetes mellitus Blood sugar stable. Continue sliding scale insulin. History of subarachnoid hemorrhage/traumatic brain injury Hold anticoagulation. Dispo: Continue current care. Discussed with RN. Family does not want patient to go to [facility]. Looking for facility in [place]. 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 Had bowel movement. Family does not want her to go to [place]. No nausea or vomiting. Objective: BP 140/90 (BP Location: Left arm, Patient Position: Lying right side) Pulse 87 Temp 97.9 ??F (36.6 ??C) (Oral) Resp 16 Wt 109 lb 2 oz (49.5 kg) SpO2 100% BMI 19.96 kg/m?? I/O last 3 completed shifts: In: 237 [P.O.:237] Out: 1750 [Urine:1750] Weight: 109 lb 2 oz (49.5 kg) Constitutional: Alert and oriented to person, place, and time. No distress. Cardiovascular: Normal rate and regular rhythm. Exam reveals no friction rub. No murmur heard. Pulmonary/Chest: Effort normal and breath sounds normal. No respiratory distress. There are no wheezes. Abdominal: Soft. Bowel sounds are normal. No distension. There is no tenderness. There is no rebound and no guarding. Musculoskeletal: Left above-knee amputation. Neurological: Grossly normal. Skin: Skin is warm and dry. No erythema. Labs: Laboratory data and diagnostic testing reviewed 06/29/25. Jacob Horowitz MD 06/29/2025 3:10 PM This note was generated using voice recognition technology. It has been reviewed by the undersigned, however, may still contain unintended errors * Kailee Mena BSW - 06/28/2025 2:49 PM EDT 9.12--NORA ADD: SPOKE WITH FAMILY WHO IS NOW DECLINING DISCHARGE TO [facility] AND WOULD LIKE TO HAVE [facility] EVALUATE FOR POTENTIAL ADMISSION. NORA SPOKE WITH ТАТЬЯНА WITH ADMISSIONS [phone] WHO REQUESTED INFORMATION TO BE FAXED TO [phone] FOR REVIEW TO BE COMPLETED. FAMILY IS AWARE THATTHEY WILL NEED TO PROVIDE TRANSPORTATION TO FACILITY INSURANCE WILL NOT COVER THIS DISTANCE. CC WILL CONTACT FAMILY ONCE DECISION IS MADE FROM POONAM GUZMÁN. SUJATA WITH [facility] AWARE OF [facility] CANCELLATION. TO FOLLOW. 06/28/25 1448 Discharge Planning Evaluation Actual Discharge Plan 06.28-- FINAL NOTE. Patient is set for discharge today. [facility] to provide transportation with pecan picker at 6:30. updated nursing staff, family and Sujata with [facility]. No further needs noted. Final Note Referral to SEP Care Management (SEP patients only) N/A Transportation at Discharge Ambulance Date Expected 06/28/25 Transportation Location [facility] Confirmed Discharge Transportation Plan? Yes [facility] Completed Not Applicable Patient Aware and Agrees with DC Plan Yes Primary Caregiver/Legal Decision Maker aware and agree with Discharge Plan Yes Name of Family member notified adriana Does family and/or caregiver verbalize readiness, willingness, and ability to provide or support patient's self-management activities as appropriate? Not applicable. Patient not returning home at discharge MD Aware of Plan Yes RN Notified of Plan Yes * Kimmie Schuler CCC-SNOWBLOWER MECHANIC - 06/28/2025 10:28 AM EDT 06/28/25 0947 Speech Pathology Treatment Note Patient Seen Today? Yes Note Type Treatment/Progress Diet Recommendations Regular Solids;Thin Liquids Strategies/Maneuvers Upright positioning 90 degrees Medication administration With thin liquids Assistance/Supervision Independent SNOWBLOWER MECHANIC Recommendation No post discharge therapy recommended Hospital Course Admitted 06/23, RR 06/24 with seizure. intubated. Extubated 06/25. CSE 06/26 recommended regular with thin Recent Imaging Chest 06/24 CXR: Worsening pulmonary edema with enlarging pleural effusions Recent Imaging Head 06/24 HCT: 1. No acute intracranial abnormality. 2. Right paranasal sinus disease. Respiratory status Yes Room air Appears WFL Speech Therapy Personal Protective Equipment Gloves;Gown Pt/family/RN concerns Pt reports feeling tired today Subjective Agreeable to ST;Pleasant Clinical Swallow Eval Goals & Performance GOAL: Patient/caregiver will understand education regarding swallowing, diet recommendations and treatment with No cues;Verbal cues PERFORMANCE: Patient/caregiver understands education regarding swallowing, diet recommendations andtreatment with Minimal;Verbal cues;100% accuracy GOAL: Patient will tolerate recommended diet without observed clinical signs of aspiration Regular Solids;Thin liquids PERFORMANCE: Patient tolerated recommended diet without observed clinical signs of aspiration Did not demonstrate overt s/s of aspiration;Regular Solids;Thin liquids Assessment Assessment Goals met Pertinent Diagnosis Seizure Speech Therapy Related Diagnosis R13.10 Dysphagia unspecified Frequency/Follow up Discharge from Speech Therapy Time In 938 Time Out 950 Discharge Information Note to serve as discharge summary if no further treatment provided before being discharged from the hospital * Jacob Horowitz MD - 06/28/2025 7:50 AM EDT PROGRESS NOTE Assessment/Plan: Acute respiratory failure with hypoxia Improved. Extubated on room air. A-fib with tachybradycardia No bradycardia overnight. Heart rate well-controlled. Continue p.o. metoprolol 25 mg twice daily Cardiology consulted and signed off. No anticoagulation due to anemia, thrombocytopenia and history of subarachnoid bleed Seizure-like activity Prior history of traumatic brain injury CT head with no acute findings. Right paranasal sinus disease. On p.o. Keppra Neurology consulted and signed off. 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 P.o. gabapentin. Continue p.o. oxycodone Acute on chronic diastolic heart failure Compensated. Last echo with normal LVEF, severe tricuspid regurgitation, RVSP 41 mmHg P.o. Lasix. History of pulm embolism Not on anticoagulation due to subarachnoid bleed. Anemia Hemoglobin stable. Thrombocytopenia Platelet counts are improving. Type 2 diabetes mellitus Blood sugar stable. Continue sliding scale insulin. History of subarachnoid hemorrhage/traumatic brain injury Hold anticoagulation. Dispo: Okay to DC. 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 Had bowel movement. Objective: BP 133/66 (BP Location: Right arm, Patient Position: Semi Fowlers) Pulse 73 Temp 98.1 ??F (36.7??C) (Oral) Resp 16 Wt 111 lb 8.8 oz (50.6 kg) SpO2 100% BMI 20.40 kg/m?? I/O last 3 completed shifts: In: 477 [P.O.:477] Out: 1500 [Urine:1500] Weight: 111 lb 8.8 oz (50.6 kg) Constitutional: Alert and oriented to person, place, and time. No distress. Cardiovascular: Normal rate regular rhythm Pulmonary/Chest: Effort normal and breath sounds normal. No respiratory distress. There are no wheezes. Abdominal: Soft. Bowel sounds are normal. No distension. There is no tenderness. There is no rebound and no guarding. Musculoskeletal: Left above-knee amputation Neurological: Grossly normal. Skin: Skin is warm and dry. No erythema. Labs: Laboratory data and diagnostic testing reviewed 06/28/25. Jacob Horowitz MD 06/28/2025 6:08 PM This note was generated using voice recognition technology. It has been reviewed by the undersigned, however, may still contain unintended errors * Narda Mast, Clerical Staff - 06/27/2025 3:22 PM EDT Followed up with patient re: request for transportation assistance. Scheduled with: KIRAN. Trip #: [id number] @ [id number] for 06-27-25 to [facility]. Patient and RN aware of tentative plan. 06/27/25 1521 Discharge Planning Evaluation Referral Type Transportation Transportation at Discharge Ambulance Transportation Options Private Pay Date Expected 06/27/25 Time Expected 1630 Transportation Location [facility] Transportation setup completed by [facility] Yes Post Acute Form Completed Yes * Dinorah Stubbs MSW - 06/27/2025 3:06 PM EDT 06/27/25 1505 Ongoing Discharge Planning Evaluation Discussed discharge plans with Patient/Family/Caregiver/Support Person Yes, Discussed with patient and caregiver/support person Discussed discharge plans with Care Team at [facility] Yes, with nurse in attendance;Yes, with doctor in attendance Discharge to SNF Actual Discharge Plan 06/27 NORA Final: Note per MD, pt is okay to d/c this date. NORA met pt at bedside and completed d/c round. Pt states her plan is to d/c to [facility] this date. Post Acute Placement consent form completed and placed in pt's chart. NORA notified pt's son, Edgar to notify of d/c plans. Pt states no needs or preferences. NORA contacted Sujata from [facility] and notified of d/c time and date. Nurse updated. MD stated pt is not medically ready for d/c. NORA notified family, [facility] and [facility] of change. Edgar states he will contact family members. NORA following. Final Note Post Acute Facility [facility] Post Acute Form Completed Yes Care Coordination Discharge Ready? Yes Transportation at Discharge Ambulance Date Expected 06/28/25 Transportation Assign to [facility] Yes [facility] Completed Not Applicable Patient Aware and Agrees with DC Plan Yes Primary Caregiver/Legal Decision Maker aware and agree with Discharge Plan Yes Name of Family member notified Edgar Family Member Notified Relationship to Patient Legal Next of Kin Aware of Plan Yes RN Notified of Plan Yes * Nicole Caicedo PTA - 06/27/2025 11:48 AM EDT 06/27/25 1110 PT Subjective Note Type Follow Up Treatment Attempt Patient Room/Unit TCU;4N PT Subjective Comments #1 pt denied mobility due to pain states took pain med 1hr prev and does notwant to move. attempted unsuccessfully to redirect. Therapy delay reason Patient not feeling well Clinical Course spoke with nsg previous to mobility attempt. * Lily Dinero OT - 06/27/2025 11:33 AM EDT 06/27/25 1132 OT Subjective Note Type Follow Up Treatment Attempt Patient Room/Unit 436 OT Subjective Comments #1 Patient in bed, sleeping, reports too much pain. Asked when she received pain med, she stated over an hour ago, still does not want to participate in therapy. Unable to encourage, will return as schedule permits. Others Present/Assisting Nicole MCKEON Therapy delay reason Patient/family request therapist return at later time;Patient refused * Sukh Garner DO - 06/27/2025 9:42 AM EDT Heart & Vascular Progress Note PATIENT: [facility] Day 3 Cardiology following for: afib Subjective: HPI/Interval History Transferred out of ICU. No complaints. Resting in bed. Heart rates controlled. No bradycardia. Objective: Vitals: 06/27/25 0319 06/27/25 0324 06/27/25 0508 06/27/25 0803 BP: 139/72 150/85 BP Location: Right arm Right arm Patient Position: Lying right side Lying right side Pulse: 86 100 98 Resp: 18 17 Temp: 98 ??F (36.7 ??C) 98.1 ??F (36.7 ??C) TempSrc: Oral Oral SpO2: 99% 97% Weight: 108 lb 14.5 oz (49.4 kg) I/O 24 hours: Intake/Output Summary (Last 24 hours) at 06/27/2025 0942 Last data filed at 06/27/2025 0535 Gross per 24 hour Intake 559.62 ml Output 1450 ml Net -890.38 ml Physical Exam: Physical Exam Constitutional: Appearance: She is ill-appearing. Cardiovascular: Rate and Rhythm: Normal rate. Rhythm irregular. Pulses: Normal pulses. Pulmonary: Effort: Pulmonary effort is normal. Musculoskeletal: Left Lower Extremity: Left leg is amputated above knee. Skin: General: Skin is warm and dry. Capillary Refill: Capillary refill takes less than 2 seconds. Neurological: General: No focal deficit present. Mental Status: She is alert. Psychiatric: Mood and Affect: Mood normal. Medication: acetaminophen 1,000 mg Oral 3 times per day atorvastatin 40 mg Oral Nightly calcium carbonate 1,000 mg Oral Daily cyanocobalamin 1,000 mcg Oral Daily fUROsemide 40 mg Oral Daily gabapentin 300 mg Oral Daily GLUCERNA Therapeutic 1 'box' Oral BID Insulin Calculator - FSBS (Correction Only) Intake Input 1 Each MISCELLANEOUS 4 times per day And insulin aspart (NovoLOG) - Correction Factor PATIENT-SPECIFIC 0-40 Units Subcutaneous 4 times per day latanoprost 1 Drop Ophthalmic Nightly levETIRAcetam 750 mg Oral BID metoprolol 25 mg Oral BID mupirocin Nasal BID nortriptyline 10 mg Oral Nightly pantoprazole (PROTONIX) 40 mg Intravenous BID Or pantoprazole 40 mg Oral BID sodium chloride 0.9% 10 mL Intravenous 3 times per day Labs & Studies: All pertinent labs & radiologic studies for the past 24 hours have been reviewed Telemetry: afib controlled [id number] Stroke Risk Points: 9 Values used to calculate this score: Points Metrics 1 Has Congestive Heart Failure: Yes 1 Has Hypertension: Yes 2 Age: 84 1 Has Diabetes: Yes 2 Had Stroke: Yes Had TIA: No Had Thromboembolism: No 1 Has Vascular Disease: Yes 1 Clinically Relevant Sex: Female Assessment: Atrial Fibrillation Tachybrady Syndrome -Initially with afib RVR - started on diltiazem and coreg - became bradycardia requiring atropine and briefly on dopamine and epi gtt -ECHO (06/24/2025) LVEF 45-50%. Mild MR. Severe TR. -Telemetry -Tolerating lopressor 25 mg BID - can plan to change to Toprol with midrange EF Respiratory Arrest -Now intubated and sedated - now extubated on RA Seizure -Neurology consulted and signed off Chronic Kidney Disease -Renal function stable Acute on Chronic Heart Failure Preserved Ejection Fraction -ECHO (05/27/2025) LVEF 55-60%. Mild MR> LAE. RVSF. Severe TR. PASP 41 mmHg. Mild AI. Trivial pericardial effusion -ECHO (06/24/2025) LVEF 45-50%. Mild MR. Severe TR. -CTPA - no acute PE. Bilateral pleural effusions and dependent opacities - atelectasis -INSIDE SALES RECRUITER lasix PRN -s/p IV diuresis - transition to PO lasix 40 mg -Continue lopressor 25 mg BID - can plan to change to Toprol prior to discharge -Start losartan 25 mg Coronary Artery Disease -Remote history of CABG 1992 and subsequent PCIs -INSIDE SALES RECRUITER lipitor 40 mg, coreg 25 mg BID, ranexa 500 mg BID History of PE 2010 History Antiphospholipid Syndrome -No [employer]IDE SALES RECRUITER AC with history of ICH Elevated Troponin -Troponin 92, 83 -EKG afib RVR -ECHO (06/24/2025) LVEF 45-50%. Mild MR. Severe TR. -No angina Type 2 Diabetes -A1c 5.3 Hypertension -INSIDE SALES RECRUITER coreg 25 mg BID -Currently on lopressor 25 mg BID -Start losartan 25 mg Hyperlipidemia -INSIDE SALES RECRUITER lipitor 40 mg Carotid Stenosis Peripheral Vascular Disease -s/p recent left AKA Plan: Doing well rates controlled, no bradycardia - continue lopressor 25 mg BID - would plan to change to Toprol at discharge with midrange EF Start losartan 25 mg Can plan to add additional GDMT as outpatient Further input from Dr Garner. Lianet Harris, STEPHANIE, Heart and Vascular 06/27/2025 Disposition Perspective - Medically Ready for Discharge: Yes Timeframe for F/U: one week Cardiology Follow-up Provider Name: Pascual To be arranged: Patient to call office Medication Recommendation: see above Medication recommendation(s) as of date?: 06/27/25 ATTENDING PHYSICIAN NOTE/ATTESTATION: I have reviewed other provider notes as well as the patient's past and present medical problems, medications, allergies, family history, social history, laboratory and radiology studies. I have personally taken a detailed history and performed a detailed physical examination of this patient. A cardiology team advanced practitioner also participated in the patient's care and the above note reflects their findings. I have provided the majority of medical decision making as reflected below. My findings are below and may differ slightly from the assessment and plan of the advanced practitioner. Skyler Bautista is a 84 y.o. 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 ECG on admission w/ rapid atrial fibrillation, possible old anteroseptal MS Hs Trop 92-83 NT Pro BNP [facility] 11/25/2022- 1. 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 iFR of SVG to OM with results 0.98 Recommendations- Continue medical management and risk factor modification. Echo 05/2025: Normal LVEF, severe TR, RVSP 41 Nuclear MPI 12/2024: No ischemia, normal LVEF Chronic AF, possibly tachy/amber, had seizures once in MICU, may have been etiology for LOC/Bradycardia while on floor. 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 Continue atorvastatin for CAD Sukh Garner DO, FACC * David Lopez RPH - 06/27/2025 9:30 AM EDT Pharmacy Note: Route Optimization Patient is currently on Keppra 750 mg IV every 12 hours. The patient meets the criteria to convert to the oral equivalent as established by the IV to Oral/Enteral Switch procedure approved by the PTIC committee. Medication was changed from IV formulation to Keppra 750 mg PO every 12 hours per protocol. David Lopez RPH * Randolph Cervantes MD - 06/27/2025 9:01 AM EDT Pt transferred to the floors from ICU. No active pulmonary issues, we will sign off. Please call with questions. Randolph Cervantes Pulmonary * Jacob Horowitz MD - 06/27/2025 7:47 AM EDT PROGRESS NOTE Assessment/Plan: Acute respiratory failure with hypoxia Improved. Extubated on room air. A-fib with tachybradycardia Improved. Heart rate well-controlled. Rapid response was called other day and patient was given atropine and dopamine for bradycardia Continue p.o. metoprolol 25 mg twice daily. Dose increased. Monitor closely for bradycardia. Cardiology consulted. Seizure-like activity Prior history of traumatic brain injury CT head with no acute findings. Right paranasal sinus disease. On p.o. Camilo Neurology consulted. Phantom limb pain Status post left AKA. Increase p.o. gabapentin to 300 mg 3 times daily. Continue p.o. oxycodone Acute on chronic diastolic heart failure Nearly compensated. Last echo with normal LVEF, severe tricuspid regurgitation, RVSP 41 mmHg IV Lasix transition to p.o. Lasix 40 mg daily. History of pulm embolism Not on anticoagulation due to subarachnoid bleed. Anemia Hemoglobin stable. Thrombocytopenia Platelet counts are improving. Type 2 diabetes mellitus Blood sugar stable. Continue sliding scale insulin. History of subarachnoid hemorrhage/traumatic brain injury Hold anticoagulation. Nutrition Evaluated by speech therapy. Okay to start on diet recommended by speech therapy. Recommendations noted. Dispo: Encouraged to work with therapy. Physical therapy recommends moderate frequency moderate intensity rehab. 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 Left AKA stump hurts bad, feels toes are hurting and it is horrible. Only oxycodone helps. Objective: BP 139/72 (BP Location: Right arm, Patient Position: Lying right side) Pulse 100 Temp 98 ??F (36.7 ??C) (Oral) Resp 18 Wt 108 lb 14.5 oz (49.4 kg) SpO2 99% BMI 19.92 kg/m?? I/O last 3 completed shifts: In: 559.6 [P.O.:460; IV Piggyback:99.6] Out: 1450 [Urine:1450] Weight: 108 lb 14.5 oz (49.4 kg) Constitutional: Alert and oriented to person, place, and time. No distress. Cardiovascular: Normal rate and regular rhythm Pulmonary/Chest: Effort normal and breath sounds normal. No respiratory distress. There are no wheezes. Abdominal: Soft. Bowel sounds are normal. No distension. There is no tenderness. There is no rebound and no guarding. Musculoskeletal: Left above-knee amputation. Neurological: Grossly normal. Skin: Skin is warm and dry. No erythema. Labs: Laboratory data and diagnostic testing reviewed 06/27/25. Jacob Horowitz MD 06/27/2025 1:55 PM This note was generated using voice recognition technology. It has been reviewed by the undersigned, however, may still contain unintended errors * Oumou Fu RN - 06/26/2025 6:20 PM EDT Family and pt aware of pt transferring to Room 436. Belongings packed. CVC removed per Celsa MCCRAY. Ultrasound guided IV placed. Report given to nurse and put in for transporter. 1909 Wheeled out of ICU per bed with transporter without difficulty. * Randolph Cervantes MD - 06/26/2025 3:51 PM EDT Patient: Skyler Bautista Date of Admission: 06/23/2025 Admitting Provider: Duong Vitale MD Date of Consultation: 06/26/2025 PULMONARY CRITICAL CARE MEDICINE PROGRESS NOTE Follow up for: Respiratory failure Extubated yesterday, respiratory status stable and breathing comfortably on room air --- Supplemental O2 & NIV O2 Device: Room Air Mechanical Ventilation Lab Results Component Value Date PH 7.45 06/24/2025 PCO2 31 (L) 06/24/2025 PO2 86 06/24/2025 HCO3 21.8 (L) 06/24/2025 O2SAT 97.7 06/24/2025 INSPIREDO2 25 06/25/2025 PHYSICAL EXAMINATION BP 102/63 Pulse 86 Temp 99.3 ??F (37.4 ??C) (Garrido Probe) Resp 25 Wt 122 lb 12.7 oz (55.7 kg) SpO2 95% BMI 22.46 kg/m?? Temp (24hrs), Av.4 ??F (37.4 ??C), Min:99.1 ??F (37.3 ??C), Max:99.9 ??F (37.7 ??C) Intake/Output Summary (Last 24 hours) at 06/26/2025 1551 Last data filed at 06/26/2025 1441 Gross per 24 hour Intake 153.03 ml Output 1800 ml Net -1646.97 ml Constitutional: vitals as above; No distress, awake and alert Lungs: Clear LAB RESULTS Lab Results Component Value Date WBC 4.1 06/26/2025 HGB 9.3 (L) 06/26/2025 HCT 27.7 (L) 06/26/2025 PLT 94 (L) 06/26/2025 Lab Results Component Value Date NA 138 06/26/2025 K 4.5 06/26/2025 CL 106 06/26/2025 CO2 22 06/26/2025 BUN 13 06/26/2025 CREATININE 0.87 06/26/2025 PHOS 4.1 06/24/2025 GLU 95 06/26/2025 Recent Labs 06/24/25 0510 AST 31 ALT 17 ALKPHOS 149* No results found for this visit on 06/23/25 (from the past 2 weeks). MEDICAL THERAPY sodium chloride 0.9 % acetaminophen 1,000 mg Oral 3 times per day atorvastatin 40 mg Oral Nightly calcium carbonate 1,000 mg Oral Daily cyanocobalamin 1,000 mcg Oral Daily fUROsemide 40 mg Intravenous Daily gabapentin 300 mg Oral Daily GLUCERNA Therapeutic 1 'box' Oral 1 Time GLUCERNA Therapeutic 1 'box' Oral BID Insulin Calculator - FSBS (Correction Only) Intake Input 1 Each MISCELLANEOUS 4 times per day And insulin aspart (NovoLOG) - Correction Factor PATIENT-SPECIFIC 0-40 Units Subcutaneous 4 times per day latanoprost 1 Drop Ophthalmic Nightly levETIRAcetam (KEPPRA) IV (Orderable) 750 mg Intravenous 2 times per day metoprolol 12.5 mg Oral BID mupirocin Nasal BID nortriptyline 10 mg Oral Nightly pantoprazole (PROTONIX) 40 mg Intravenous BID Or pantoprazole 40 mg Oral BID polyethylene glycol 17 g Enteral BID sodium chloride 0.9% 10 mL Intravenous 3 times per day CARDIAC DIET Impression and Plan: Seizure activity Respiratory arrest, extubated yesterday Acute hypoxic respiratory failure A-fib with RVR and bradycardia CKD HFpEF, echo now with new reduction in ejection fraction Thrombocytopenia Plan: Respiratory status stable, breathing comfortably on room air Neurology following, on Keppra twice daily Cardiology following, on IV Lasix daily. Considering PPM placement Feeds: P.o. Prophylaxis: PPI, no heparin Ok to the floors [facility] * Miryam Guzman, [employer] SUPERVISOR - 06/26/2025 3:08 PM EDT Images from the original note were not included. Patient Name:Skyler Bautista : 1940 Admitting Diagnosis: Atrial fibrillation with RVR (HCC) INTERVAL HISTORY Patient seen and examined in ICU. She is now extubated and medically improved. She missed her post operative appointment in our office to remove the noelle from her L AKA that was performed by Dr. Wolf on 05/24. She presented to the ED on 06/23 from [facility] with findings of A fib RVR. She also was hypotensive and bradycardic. She was in the ICU and intubate for the past several days. Shehas medically improved and is now extubated, alert and oriented. She does however continue to have some tachycardic episodes. We were consulted for staple removal of her L AKA stump. MEDICAL HISTORY Scheduled Medications: ??? acetaminophen 1,000 mg Oral 3 times per day ??? atorvastatin 40 mg Oral Nightly ??? calcium carbonate 1,000 mg Oral Daily ??? cyanocobalamin 1,000 mcg Oral Daily ??? fUROsemide 40 mg Intravenous Daily ??? gabapentin 300 mg Oral Daily ??? GLUCERNA Therapeutic 1 'box' Oral 1 Time ??? GLUCERNA Therapeutic 1 'box' Oral BID ??? Insulin Calculator - FSBS (Correction Only) Intake Input 1 Each MISCELLANEOUS 4 times per day And ??? insulin aspart (NovoLOG) - Correction Factor PATIENT-SPECIFIC 0-40 Units Subcutaneous 4 times per day ??? latanoprost 1 Drop Ophthalmic Nightly ??? levETIRAcetam (KEPPRA) IV (Orderable) 750 mg Intravenous 2 times per day ??? metoprolol 12.5 mg Oral BID ??? mupirocin Nasal BID ??? nortriptyline 10 mg Oral Nightly ??? pantoprazole (PROTONIX) 40 mg Intravenous BID Or ??? pantoprazole 40 mg Oral BID ??? polyethylene glycol 17 g Enteral BID ??? sodium chloride 0.9% 10 mL Intravenous 3 times per day Allergy: Allergies Allergen Reactions ??? Lidocaine Rash ??? Nitrofurantoin Rash ??? Morphine Other (See Comments) Last Recorded Vital Signs: Temp: 99.4 ??F (37.4 ??C) Pulse: 90 BP: 102/63 Resp: (!) 31 SpO2: 95 % O2 Flow Rate (L/min): 2 lpm Intake/Output Summary (Last 24 hours) at 06/26/2025 1508 Last data filed at 06/26/2025 1441 Gross per 24 hour Intake 153.03 ml Output 1800 ml Net -1646.97 ml LABS AND RADIOLOGY Pertinent Labs: CBC: Recent Labs 06/26/25 1427 WBC 4.1 HGB 9.3* HCT 27.7* MCV 110.4* PLT 94* BMP: Recent Labs 06/26/25 0631 06/26/25 1427 NA 138 -- K 3.9 4.5 CL 106 -- CO2 22 -- BUN 13 -- CREATININE 0.87 -- CALCIUM 8.3* -- GLU 95 -- Coagulation: No results for input(s): APTT , PROTIME , INR in the last 72 hours. Imaging:US RENAL AND BLADDER Result Date: 06/26/2025 US KIDNEYS AND BLADDER, 06/26/2025 12:44 PM CLINICAL HISTORY: -Acute urinary retention. COMPARISON: None. PROCEDURE COMMENTS: Routine sonographic evaluation of the kidneys and bladder with operations support representative images and electric milkers installer notes sent to PACS for radiologist review. FINDINGS: RIGHT: 10.5 x 4.6 x 4.9 cm. No hydronephrosis, solid-appearing mass, or shadowing stone. Exophytic cysts are present including a 4 x 3 x 3 cm cyst and a 1.8 x 1.7 x 1.6 cm cyst. LEFT: 10.5 x 4.7 x 3.7 cm. No hydronephrosis, solid-appearing mass, or shadowing stone. Multiple cysts are noted. PELVIS: Garrido catheter decompresses the bladder.d Other: Ascites is noted within all quadrants, small. No evidence of active obstructive uropathy or other acute finding. - Note: Radiology results need to be interpreted within a comprehensive clinical context. If you have questions about the radiology report, please contact the office of the ordering clinician. PHYSICAL EXAMINATION Physical Exam: General: No acute distress. Resting in bed. Alert, oriented, pleasant. Head: NC/AT. Resp: Effort normal. Abdomen: soft, non-tender. Skin: warm, well perfused Vascular: MEDICAL DECISION MAKING Active Hospital Problems Diagnosis ??? *Atrial fibrillation with RVR (HCC) ??? Seizure (HCC) ??? Respiratory arrest (HCC) ??? Atrial fibrillation with slow ventricular response (HCC) ??? Acute pulmonary edema (HCC) ??? Anemia in other chronic diseases classified elsewhere ??? Stage 3a chronic kidney disease (HCC) ??? Chest pain, unspecified type // Elevated troponin ??? Acute on chronic heart failure with preserved ejection fraction (HCC) ??? 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 History of pulmonary embolus (PE) ??? Paroxysmal atrial fibrillation (HCC) ??? Type 2 diabetes mellitus, without long-term current use of insulin (HCC) ??? Hypertension associated with diabetes (HCC) Assessment: S/P L RAMIREZA 05/24 PAD A fib RVR Hypotension Acute respiratory failure (now extubated) Seizure like activity CHF Anemia DM II Plan: -I removed noelle from Sophie ZAPIEN at bedside. Patient tolerated well. Sophie ZAPIEN stump is stable and appearsto be healing well -Vascular surgery will sign off. She can follow up in our office after discharge Signed: Miryam Guzman APRN Vascular Surgery a 06/26/2025 3:08 PM Cosigned by Wood Collins MD at 06/26/2025 4:19 PM EDT Associated attestation - Wood Collins MD - 06/26/2025 4:19 PM EDT Seen & examined after staple removal No issues * Lily Dinero, OT - 06/26/2025 2:29 PM EDT 06/26/25 1422 OT Subjective Note Type Chart Review;Evaluation Patient Room/Unit ICU 16 OT Subjective Comments #1 Patient in chair after working with PT, agreeable to OT Discharge Information Evaluation to serve as discharge summary if no further treatment provided before the facility discharge Admitting Diagnosis From [facility], dx Acute respiratory failure with hypoxia int/ext for one day, A-fib with tachybradycardia, seizure-like activity Past Med Hx Sophie ZAPIEN 05/24/25 Precautions Therapy Precautions Yes Precaution Info Given Yes;Contact;To use call light to request assistance with all mobility Other precautions ESBL Home Living/Prior Function Level of Assistance Needs assistance with ADLs;Needs assistance with homemaking;Needs assistance with functional transfers (@ SNF) Fall History No falls in the last three months Additional Comments Has been at [facility] since Left AKA 05/24, plan is to stay there for a couple months per patient, to eventually obtain prosthetic. Usually lives alone and is IND prior to may. Cognition Orientation Intact Arousal Normal Affect/Ability to cope Impaired Affect/Ability to cope impairment Anxious Command Following Impaired Command following impairment Minimal Impairments: Needs up to 25% input/direction from therapist inorder to follow single step commands. Memory Intact Communication Intact Pain Screening PT/OT Patient Currently in Pain Yes Pain Rating Patient unable to rate pain Pain Location Leg Pain Orientation Left Pain Intervention(s) Emotional support;Distraction Observation Presentation Patient resting in bed Posture Left AKA Observation IV;Garrido catheter;Telemetry;Bed alarm;Central venous access;Continuous pulse ox Vitals 88 HR, 98% RA, BP 137/101 UE Assessment LUE Assessment X LUE Additional Comments RTC injury, shoulder flexion ~80* with pain, EL/WR WFL RUE Assessment WFL Hand Function Hand Dominance Right Gross Grasp Functional Coordination Functional 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 Strength WFL Coord/Sensation Assessed Grossly Intact/Normal Perception Perception Grossly intact/normal ADL Interventions Where Assessed Chair Feeding Assistance Set up;Independent Grooming Assistance Stand by;Oral care;Washing face UE Bathing Assistance (denied need, reports completing earlier) Toileting Garrido catheter Transfers Sit to Stand (assessed by PT minutes before) OT Gait Gait Non-ambulatory prior to admission Balance Sitting Balance 1+/5 supports self with >50% effort using UE, requires therapist assistance Vision OT Vision Comment denied new deficits Functional Status Score (FSS-ICU) Is the patient currently in ICU? Yes [...] Functional Percentage 63.03 AM PAC Daily Activity [facility] G Code Modifier CL Education Education To use call light to request assistance with all mobility;Patient/Family Education;Role of Therapy;Discharge planning;Safe and proper posture/positioning Patient Safety Patient left in chair with needs in reach;Chair/personal alarm activated Assessment Assessment Decreased ADL status;Decreased UE ROM;Decreased UE strength;Decreased Safe judgement during ADL;Decreased cognition;Decreased self-care transfers;Decreased high-level ADLs Prognosis Fair;With continued OT s/p acute discharge Rationale for Skilled Therapy Fall Risk;Balance Deficits;Not safe with independent transfers;Not safe ambulating independently;Requires physical assistance with ADLs Goals Patient and/or Family Goal return to SNF Goals Yes Goal Formulation With Patient Time for Goal Achievement/Duration of Treatment 3-5 sessions Additional Goals Additional Goals ADLs: Set up UB, Mod a LB Additionals Goals 2 ADL/functional transfers: formal assessment to follow Additional Goals 3 Bed mobility: formal assessment to follow Plan Treatment Interventions ADL retraining;Functional transfer training;UE strengthening/ROM;Cognitive reorientation;Patient/Family training;Equipment eval/education;Neuro muscular reeducation;Continued evaluation OT Frequency 1-5x/wk Recommendation OT Recommendation Moderate frequency, moderate intensity five days a week therapy recommended. Time In / Time Out 4337-9072 IP OT Evaluation Minutes 8 IP OT Individual Treatment Minutes 8 The total time spent caring for this patient included but was not limited to medical record review;hands-on treatment;communication and education with patient and/or family/caregiver;assessment of the patient's progress since the last session;clinical judgement necessary for treatment planning for next session * Roni Spicer PharmD - 06/26/2025 2:27 PM EDT Pharmacy Note: Route Optimization Patient is currently on acetaminophen 1000 mg IV every 6 hours PRN. The patient meets the criteria to convert to the oral equivalent as established by the IV to Oral/Enteral Switch procedure approvedby the PTIC committee. Medication was changed from IV formulation to acetaminophen 650 mg PO/TN every 4 hours PRN per protocol. Thanks! Roni Spicer PharmD * Denisa Armando RD,LD - 06/26/2025 2:02 PM EDT [facility] Nutrition Malnutrition Reassessment Evidence Supported Malnutrition Diagnosis: Moderate protein-calorie malnutrition In the context of: Chronic Illness Indicators: mild fat depletion, moderate muscle mass depletion, decreased functional status Nutrition Problem/Diagnosis: Nutrition Diagnosis Problem 1: Inadequate oral intake related to impaired respiratory function as evidenced by intake 0-25%, new medical diagnosis or change in existing diagnosis or condition. Status: Active nutrition diagnosis Nutrition Prescription: Kcals: 4475-9613 kcal (25-30 kcal/55.7 kg) Protein (g): 67-84 Protein needs based on: 1.2-1.5 g pro/55.7 kg Fluid (ml): defer to MD Other (comment): re-assessed 06/26 Plan/Interventions: Meals and Snacks: Cardiac (will monitor possible indication for carb controlled diet) Enteral Nutrition: d/c'd 06/25 Medical Food Supplements: Glucerna Therapeutic Medical Food/Supplement Freq: strawberry bid Vitamin and Mineral Supplements: Sodium, Chloride, Vitamin B12 (ICU Electrolyte Replacement protocol in place) Nutrition-Related Medication Management: Lipitor, Tums, Lasix, Novolog, Insulin calculator, Protonix Nutrition Education: Supplements, Oriented to Current Diet Order, Importance of nutrition to healing and recovery Collaboration And Referral Of Nutrition Care: Team meeting (ICU rounds) Nutrition Discharge Instructions: Continue a heart healthy diabetic diet with Glucerna between meals (2x/day) Skyler Bautista is a 84 y.o. female patient. Admit Diagnosis: Atrial fibrillation with RVR (HCC) [I48.91] Paroxysmal atrial fibrillation (HCC) [I48.0] Subjective: Subjective Comment: OGT removed with extubation yesterday, passed SNOWBLOWER MECHANIC eval this am and oral diet ashley advanced. Had 4 BM's since 5 pm yesterday-bowel regimen being held. Oriented to prescribed diet and option of oral nutrition supplements. Declined lunch but agreed to a strawberry Glucerna, takes at home. Anthropometric Measurements: Height: 5' 2 (157.5 cm) Weight: 122 lb 12.7 oz (55.7 kg) BMI (Calculated): 22.46 Other (Comment): Since admit wt has ranged from 122-126#, no edema is noted, lasix prescribed Food/Nutrition Related History: Dietary Orders Ordered Cardiac Diet DIET EFFECTIVE NOW 06/26/25 1306 GLUCERNA Therapeutic oral supplement 1 'box' Oral 1 Time GLUCERNA Therapeutic oral supplement 1 'box' Oral BID Food Insecurity Within the past 12 months, you worried that your food would run out before you got the money to buymore.: Never true Within the past 12 months, the food you bought just didn't last and you didn't have money to get more.: Never true % Avg Meals Consumed: (not yet established, jsut advanced) Supplement Acceptance: drinks 2 strawberry Glucerna daily district captain Tube Feeding?: No (d/c'd yesterday with extubation) Chewing Difficulty: No Swallowing Difficulty: No (SNOWBLOWER MECHANIC jayda completed) Energy Intake: Other (comment) (denies any changes, but per family is not a big eater) Nutrition Focused Physical Findings: Physical Exam?: Yes Subcutaneous Fat Loss--Orbital: Mild Subcutaneous Fat Loss--Buccal (Cheek): Mild Subcutaneous Fat Loss--Triceps: Moderate Subcutaneous Fat Loss--Thoracic/Lumbar: Unable to assess Muscle Loss--Temporalis : Moderate Muscle Loss--Clavicle Pectoralis/Trapezius: Mild Muscle Loss--Clavicle and Acromion (Shoulder): Mild Muscle Loss--Scapula: Unable to assess Muscle Loss--Interosseous: Moderate Muscle Loss--Patellar: Moderate Muscle Loss--Quadricep: Moderate Muscle Loss--Gastrocnemius (Calf): Moderate Functional Status: Suboptimal (some decline) (high fall risk, PT/OT consulted) LDAs- Active NG/OG/NJ,Wound,Pressure Injury,or Drain None I/O last 3 completed shifts: In: 815.3 [I.V.:53.1; NG/GT:575; IV Piggyback:187.3] Out: 2250 [Urine:2250] Edema: Abdomen: Abdominal/GI Abdomen Inspection: Soft Bowel Sounds (All Quadrants): Audible When was last BM? (Date): 06/25/25 Stool Assessment: Stool Occurrence: 1 Stool Appearance: Type 5 [place] Stool Chart Stool Color: Brown Stool Amount: Medium Biochemical Data/Medical Tests: Pertinent Labs: gluc 95, H/H 9.0/27.4, BNP 7743 Pertinent Medical Tests/Procedures: 05/24- intubated, OGT removed with extubation. 06/25-06/25 NGT Clinical Course: Clinical Course: Admitted from [facility] d/t Afib w/AVR, CP w/elevated troponin, CHFand Acute Pulm edema-lasix prescribed, Anemia, Intubated 05/24 d/t unresponsiveness and seizure like activity. 06/25 extubated, SNOWBLOWER MECHANIC following-oral diet advanced * Cely Luna MSW - 06/26/2025 1:46 PM EDT 06/26/25 1343 Ongoing Discharge Planning Evaluation Completed by CC/SW Yes Caregiver Name Edgar Buitrago - son Caregiver Anticipated post-acute care needs Nursing Facility Discussed discharge plans with Care Team at [facility] Yes, with nurse in attendance Patient's goals for recovery Return to Prior Level of Functioning Repisodic List provided N/A - Resumption care. Patient active with post acute partner prior to admission Discharge to SNF Actual Discharge Plan 06/26/2025 SW(UPDATE): Pt admitted with atrial fibrillation with RVR, acute pulmonary edema, elevated troponin and pleural effusion. Pt was at [facility] for SNF prior to admission. A proactive resumption referral was submitted and accepted. Updated PT notes recommend a return to SNF at discharge. Pharmacy and medical care provided by facility. Post Acute to be completed prior to discharge. Anticipate family transport. SW following in ICU * Becky Smith, PT - 06/26/2025 12:45 PM EDT 06/26/25 1236 PT Subjective Note Type Evaluation Patient Room/Unit ICU 16 PT Subjective Comments #1 pt agreeable and cooperative. Wanted to take a nap, but still willing to get up. Discharge Information Evaluation to serve as discharge summary if no further treatment provided before the facility discharge Admitting Diagnosis A-fib with RVR, enceph, L frontal hemorrhagic contusion, seizure, bradykinesia,hypotension Past Med Hx PMH includes Sophie ZAPIEN Clinical Course intubated 06/24-06/25 Pain Screening PT/OT Patient Currently in Pain Yes Additional Comments recent L AKWan in May Cognition Orientation Intact Arousal Normal Safety Awareness Impaired Safety Awareness Impairment Moderate Impairments: Needs 25-75% input/direction from therapist in order to identify safety issues and maintain safety. Affect/Ability to cope Normal Command Following Impaired Command following impairment Moderate Impairments: Needs 25-75% input/direction from therapist in order to follow multi-step commands. Memory Intact Communication Intact Precautions Therapy Precautions Yes Precaution Info Given Yes;Contact;To use call light to request assistance with all mobility Additional Comments ESBL Home Living/Prior Function Additional Comments pt lived alone prior to AKA; went to SNF; wants to go back to SNF, then get a prosthetic limb, then go back home. Coord/Sensation Assessed Grossly Intact/Normal Perception Perception Grossly intact/normal Observation Presentation Patient resting in bed Posture L RUPALI Observation Telemetry;Bed alarm;Garrido catheter;IV Vitals no signs of vital distress UE Assessment LUE Assessment WFL RUE Assessment WFL LE Assessment LLE Additional Comments L AKA RLE Additional Comments grossly 2/5 Bed Mobility Supine to Sit Moderate assistance Transfers Sit to Stand Moderate assistance;Maximum assistance;With raised bed height Stand to Sit Moderate assistance;Maximum assistance Bed to/from chair Moderate assistance;Maximum assistance Gait Gait Non-ambulatory prior to admission Functional Status Score (FSS-ICU) Rolling 2 Supine To Sit 2 Sitting At Edge Of Bed 4 Transfer From Sit To Stand 1 Ambulation 1 Cumulative Score 10 Is the patient currently in ICU? Yes PT/OT Mobility Documentation PT/OT Mobility Score 3 AM PAC: How much help from another [...] planning;Up with assistance only;Precautions Patient Safety Patient Safety Patient left in chair with needs in reach;Chair/personal alarm activated Assessment Assessment Decreased gait;Decreased functional mobility;Decreased balance;Decreased ADL status;Decreased RightLower Extremity strength;Decreased Left Lower Extremity strength;Decreased activity tolerance ;Decreased self-care transfers;Decreased high-level ADLs Prognosis Fair Rationale for Skilled Therapy Fall Risk;Balance Deficits;Not safe with independent transfers;Not safe ambulating independently Goals Patient and/or Family Goal to get well PT GOALS (Yes/No) Yes Add Goals Will Perform Supine To Sit With minimal assist;To improve functional mobility Will Transfer Bed/Chair With minimal assist;To improve functional mobility Goal Formulation With patient Time for Goal Achievement/Duration of Treatment 14 days Plan Treatment/Interventions Gait training;Bed mobility;Balance training;ADL retraining;Functional transfer training;Increase activity tolerance ;LE strengthening/ROM PT Frequency 3-5x/week Recommendation PT Recommendation Moderate frequency, moderate intensity five days a week therapy recommended. Time In / Time Out 1120/1138 IP PT Evaluation Minutes 9 IP PT Treatment Minutes 9 The total time spent caring for this patient included but was not limited to medical record review;hands-on treatment;communication and education with patient and/or family/caregiver;clinical judgement necessary for treatment planning for next session;communication with nursing and/or care coordinat ion/social work regarding patient status and discharge planning * Jacob Horowitz MD - 06/26/2025 10:53 AM EDT PROGRESS NOTE Assessment/Plan: Acute respiratory failure with hypoxia Improved. Extubated on room air. A-fib with tachybradycardia Tachycardic again today. Rapid response was called other day and patient was given atropine and dopamine for bradycardia Restarted on low-dose Lopressor. Can go up on the dose of beta-melinda if okay with cardiology. Monitor closely for bradycardia. Cardiology following. Seizure-like activity Prior history of traumatic brain injury CT head with no acute findings. Right paranasal sinus disease. On p.o. Camilo Neurology consulted. Acute on chronic diastolic heart failure NT proBNP is trending up. 7000 today. It was 5000 yesterday. Last echo with normal LVEF, severe tricuspid regurgitation, RVSP 41 mmHg On IV Lasix. Monitor renal function closely. Monitor electrolytes closely. History of pulm embolism Not on anticoagulation due to subarachnoid bleed. Anemia Hemoglobin stable. Thrombocytopenia Platelet counts are improving. Status post left above-knee amputation Type 2 diabetes mellitus Blood sugar stable. Continue sliding scale insulin. History of subarachnoid hemorrhage/traumatic brain injury Hold anticoagulation. Nutrition Evaluated by speech therapy. Okay to start on diet recommended by speech therapy. Recommendations noted. Chronic pain Caution with narcotics. On Roxicodone. Dispo: No objection to move to TCU if okay with others. 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 Denies chest pain or shortness of breath. On room air. Heart rate+++ Objective: BP 161/90 Pulse 98 Temp 99.1 ??F (37.3 ??C) Resp 19 Wt 122 lb 12.7 oz (55.7 kg) SpO2 97% BMI 22.46 kg/m?? I/O last 3 completed shifts: In: 815.3 [I.V.:53.1; NG/GT:575; IV Piggyback:187.3] Out: 2250 [Urine:2250] Weight: 122 lb 12.7 oz (55.7 kg) Constitutional: Alert and oriented to person, place, and time. No distress. Cardiovascular: Tachycardia, irregular rhythm Pulmonary/Chest: Effort normal and breath sounds normal. No respiratory distress. There are no wheezes. Abdominal: Soft no tenderness, no guarding or rigidity Musculoskeletal: No edema. Neurological: Grossly normal. Skin: Skin is warm and dry. No erythema. Labs: Laboratory data and diagnostic testing reviewed 06/26/25. Jacob Horowitz MD 06/26/2025 11:18 AM This note was generated using voice recognition technology. It has been reviewed by the undersigned, however, may still contain unintended errors * Sukh Garner, DO - 06/26/2025 10:22 AM EDT Heart & Vascular Progress Note PATIENT: Skyler Bautista 2 Cardiology following for: Afib Subjective: No new complaints noted overnight Objective: Vitals: 06/26/25 1000 BP: 161/90 Pulse: 98 Resp: 19 Temp: 99.1 ??F (37.3 ??C) SpO2: 97% I/O 24 hours: Intake/Output Summary (Last 24 hours) at 06/26/2025 1023 Last data filed at 06/26/2025 0634 Gross per 24 hour Intake 240.32 ml Output 2250 ml Net -2009.68 ml Physical Exam: Pt in no distress. Neck supple, 0 JVD Heart - S1, S2 , 0M/R/G. Lungs - diminished Chest wall - nontender Abd - soft, NT, +BS Extremities- 0 edema, +2 DP/PT/Radial pulses Neuro - Alert and oriented Mood and affect appropriate Medication: acetaminophen 1,000 mg Oral 3 times per day atorvastatin 40 mg Oral Nightly calcium carbonate 1,000 mg Oral Daily cyanocobalamin 1,000 mcg Oral Daily fUROsemide 40 mg Intravenous Daily gabapentin 300 mg Oral Daily Insulin Calculator - FSBS (Correction Only) Intake Input 1 Each MISCELLANEOUS 4 times per day And insulin aspart (NovoLOG) - Correction Factor PATIENT-SPECIFIC 0-40 Units Subcutaneous 4 times per day latanoprost 1 Drop Ophthalmic Nightly levETIRAcetam (KEPPRA) IV (Orderable) 750 mg Intravenous 2 times per day metoprolol 12.5 mg Oral BID mupirocin Nasal BID nortriptyline 10 mg Oral Nightly pantoprazole (PROTONIX) 40 mg Intravenous BID Or pantoprazole 40 mg Oral BID polyethylene glycol 17 g Enteral BID potassium chloride in water 20 mEq Intravenous Once Followed by potassium chloride in water 20 mEq Intravenous Once sodium chloride 0.9% 10 mL Intravenous 3 times per day sodium chloride 0.9 % Labs & Studies: All pertinent labs & radiologic studies for the past 24 hours have been reviewed Telemetry: Afib rates controlled Assessment: Atrial Fibrillation Tachybrady Syndrome -Initially with afib RVR - started on diltiazem and coreg - became bradycardia requiring atropine and briefly on dopamine and epi gtt -ECHO EF 45-50% slightly down from previous of 55-60% -Lopressor 12.5 seems to tolerate -Telemetry -May need eventual EP consult for consideration of PPM Respiratory Arrest -SP intubation now room air -Per ICU Seizure -Neurology consulted Chronic Kidney Disease -Renal function stable Acute on Chronic Heart Failure Preserved Ejection Fraction -ECHO (05/27/2025) LVEF 55-60%. Mild MR> LAE. RVSF. Severe TR. PASP 41 mmHg. Mild AI. Trivial pericardial effusion -CTPA - no acute PE. Bilateral pleural effusions and dependent opacities - atelectasis -INSIDE SALES RECRUITER lasix PRN -Currently on IV diuresis this admission -Volume status appears to be improving Coronary Artery Disease -Remote history of CABG and subsequent PCIs -INSIDE SALES RECRUITER lipitor 40 mg, coreg 25 mg BID, ranexa 500 mg BID History of PE -No INSIDE SALES RECRUITER AC with history of ICH Elevated Troponin -Troponin 92, 83 -EKG afib RVR -ECHO as above Type 2 Diabetes -A1c 5.3 Hypertension -INSIDE SALES RECRUITER coreg 25 mg BID Hyperlipidemia -INSIDE SALES RECRUITER lipitor 40 mg Peripheral Vascular Disease -s/p recent left AKA Plan: Seems to be tolerating po BB rates controlled 90's -2949 since admission -2250 overnight Cr remains stable BNP increased from previous 5011...7743 Possible need for ppm tachy/amber Further input from Dr Pascual Vela, [employer] SUPERVISOR, Heart and Vascular 06/26/2025 Disposition Perspective - Medically Ready for Discharge: No Anticipated Discharge: 1-2 days Discharge when / if: tbd ATTENDING PHYSICIAN NOTE/ATTESTATION: I have reviewed other provider notes as well as the patient's past and present medical problems, medications, allergies, family history, social history, laboratory and radiology studies. I have personally taken a detailed history and performed a detailed physical examination of this patient. A cardiology team advanced practitioner also participated in the patient's care and the above note reflects their findings. I have provided the majority of medical decision making as reflected below. My findings are below and may differ slightly from the assessment and plan of the advanced practitioner. Skyler Bautista is a 84 y.o. 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 A fib w/ RVR on admission, placed on dilt gtt, became bradycardic and hypotension, had subsequent PEA arrest, now s/p ETT and left IJ central line. ECG on admission w/ rapid atrial fibrillation, possible old anteroseptal MS Hs Trop 92-83 NT Pro BNP 7992 [facility] 11/25/2022- 1. 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 iFR of SVG to OM with results 0.98 Recommendations- Continue medical management and risk factor modification. Echo 05/2025: Normal LVEF, severe TR, RVSP 41 Nuclear MPI 12/2024: No ischemia, normal LVEF Chronic AF, possibly tachy/amber, had seizures once in MICU, may have been etiology for LOC/Bradycardia while on floor. On dopamine gtt briefly, now off dopamine No indication for PPM at this time. HR controlled, started lopressor 12.5 BID. Was on coreg 25 BID at home. No AC with ongoing anemia, thrombocytopenia and hx of SAH EF mildly decreased, 45-50%, severe TR Make lasix po, start 40mg po daily Type II myocardial demand injury, no ACS. Continue atorvastatin. Sukh Garner DO, FACC * Isidro Clifford RN - 06/26/2025 12:53 AM EDT Images from the original note were not included. Mini Rounding Note Ventilator Ventilator: No Airway LDAs None Blood Glucose Recent Labs 06/25/25 0631 06/25/25 0820 06/25/25 1230 06/25/25 1814 06/26/25 0014 GLU 95 -- -- -- -- FSBS -- 98 102* 80 91 Insulin Drip: No Basal Insulin Orders: no Prandial Insulin Orders: no Correctional Algorithm: Medium (CF 25) Plan: Continue current treatment plan - glucose controlled Nutrition Last 4 Weights 06/24/2025 0044 06/24/2025 0556 06/25/2025 0600 Weight: 126 lb 1.7 oz (57.2 kg) 122 lb 12.7 oz (55.7 kg) 122 lb 12.7 oz (55.7 kg) Net weight change in lbs since admission: 0 Diet Order: NPO DIET ICU Length of Stay: 2 days Plan: [employer] Director monitoring Continue current diet order CLABSI Prevention CHG Application: Completed (06/25/25 0800) Central Line LDAs CVC Line Duration CVC Triple Lumen 06/24/25 Left Internal jugular 2 days CVC Triple Lumen 06/24/25 Left Internal jugular-Line necessity (Daily): Specific medication (pressors, vesicants, chemo, prostacyclins) Appropriate to DC central line (use PIV instead)? Yes- contact provider to place order CAUTI Prevention Garrido Cath LDA Garrido Catheter Duration Urethral Catheter (Garrido) 06/25/25 1500 Temperature probe 1 day Ana Care/Garrido Care: Ana wipes (06/25/252049) Appropriate to DC garrido (alternatives: external catheter, urinal, etc)? Yes- initiate removal/voiding protocol Restraints Restraints: no Most Recent Restraint Order (From admission, onward) None Wound Care Srinivasan Score for the past 24 hrs: Srinivasan Scale Score 06/25/25 2000 (!) 13 06/25/25 0830 (!) 13 Prevention options initiated?: Yes Wound LDAs None Foam Border: (not recorded) Foam Border Applied/Changed Location: (not recorded) Plan: Continue current interventions Daily Updates Admission Admitted: 06/23/25 1533 Last Updated: 005 Overdue (9) ADL: Screening/Devices Advanced Directives Height/Weight Learning Assessment Nutrition Safety Screening: AUDIT/DAST Safety Screening: Fall History Sign consent: Partners in Care Spiritual Review: Values & Beliefs Completed (21) Allergies Arrival (Notification/Handbook) Srinivasan Scale Care Plan Exist Discharge Planning Fall Protection Meds: INSIDE SALES RECRUITER Meds Meds: Pharmacy Verified Mobility Patient Education topics started Safety Screening: Domestic Abuse Safety Screening: Suicide Risk Safety Screening: Violence Risk Assessment Sign consent: Medical Authorization Sign consent: Patient Belongings Skin Integrity on Admission Vaccine: Pneumonia Valuables Vitals Vitals: Pain Goal Vitals: Pain Scale Being Used * Gabby Heredia APRN - 06/25/2025 6:36 PM EDT Swallow Evaluation Pt tolerated small amount of applesauce with ice water without coughing or difficulty swallowing from my assessment. Assessment: - s/p extubation Plan: - Ok to give meds w/ water and ice chips - pending SNOWBLOWER MECHANIC consult and evaluation tomorrow * Jeannette Camarillo RN - 06/25/2025 3:55 PM EDT Family was talking to RN during garrido placement and became very upset when RN said that she didn't have an answer as to why the patient was retaining urine (even though she's been retaining for over a year and saw urology outpatient and declined the garrido placement that they recommended). Family was also angry that RN was unable to give the patient anything to eat or drink and stated that I was starving her . I educated that because the patient's voice is raspy, she failed the bedside swallow eval which then meant that I had to consult speech (speech had been consulted an hour or so prior tothis conversation). The family continued to ask when speech was going to come and I told them that I wasn't sure and that because it was later in the day that it was possible that they wouldn't be able to come and evaluate her until tomorrow, which made them very frustrated with the RN. Family thenstated that the pt was elderly, and in the hospital and that I am supposed to be making her feel better and the RN was refusing to help them. Family also stated that they would be calling management to complain about the RN and the care they're receiving. MIME ARTIST notified and spoke with family. Charge nurse also notified and briefed on the situation. * Randolph Cervantes MD - 06/25/2025 12:15 PM EDT Patient: Skyler Bautista Date of Admission: 06/23/2025 Admitting Provider: Duong Vitale MD Date of Consultation: 06/25/2025 PULMONARY CRITICAL CARE MEDICINE PROGRESS NOTE Follow up for: resp failure On Precedex drip this morning, lowered and started on SBT --- Supplemental O2 & NIV O2 Device: Nasal cannula O2 Flow Rate (L/min): 3 lpm FiO2 (%): 21 % Mechanical Ventilation Vent Mode: SPONT (switch by Pulm an hour ago per nurse and MD) Set Rate: 16 br/min Vt Set: 400 PEEP: 8 cmH20 Plateau Pressure (Ppl): 22 [id number] Airway Size: 7.5 Lab Results Component Value Date PH 7.45 06/24/2025 PCO2 31 (L) 06/24/2025 PO2 86 06/24/2025 HCO3 21.8 (L) 06/24/2025 O2SAT 97.7 06/24/2025 INSPIREDO2 25 06/25/2025 PHYSICAL EXAMINATION BP 141/64 Pulse 83 Temp 98.7 ??F (37.1 ??C) (Oral) Resp 19 Wt 122 lb 12.7 oz (55.7 kg) SpO2 98% BMI 22.46 kg/m?? Temp (24hrs), Av.5 ??F (36.9 ??C), Min:97.5 ??F (36.4 ??C), Max:99.4 ??F (37.4 ??C) Intake/Output Summary (Last 24 hours) at 06/25/2025 1215 Last data filed at 06/25/2025 0830 Gross per 24 hour Intake 757.94 ml Output 550 ml Net 207.94 ml Constitutional: vitals as above; Intubated Mildly sedated, but opens eyes and follows commands Lungs: Clear LAB RESULTS Lab Results Component Value Date WBC 4.2 06/25/2025 HGB 7.9 (L) 06/25/2025 HCT 23.5 (L) 06/25/2025 PLT 63 (L) 06/25/2025 Lab Results Component Value Date NA 139 06/25/2025 K 3.4 (L) 06/25/2025 CL 106 06/25/2025 CO2 21 (L) 06/25/2025 BUN 16 06/25/2025 CREATININE 1.05 06/25/2025 PHOS 4.1 06/24/2025 GLU 95 06/25/2025 Recent Labs 06/24/25 0510 AST 31 ALT 17 ALKPHOS 149* No results found for this visit on 06/23/25 (from the past 2 weeks). MEDICAL THERAPY sodium chloride 0.9 % dexMEDEtomidine 0.5 mcg/kg/hr (06/25/25 0906) fentaNYL (SUBLIMAZE) infusion orderable 0.5245 mcg/kg/hr (06/24/25 0735) propofol Stopped (06/24/25 1009) acetaminophen 1,000 mg Oral 3 times per day atorvastatin 40 mg Oral Nightly calcium carbonate 1,000 mg Oral Daily cyanocobalamin 1,000 mcg Oral Daily fUROsemide 40 mg Intravenous Daily Insulin Calculator (CONTINUOUS PICKLING LINE PICKLER) - FSBS (Correction Only) Intake Input 1 Each MISCELLANEOUS 6 times per day And insulin aspart (NovoLOG) - Correction Factor PATIENT-SPECIFIC 0-40 Units Subcutaneous 6 times per day latanoprost 1 Drop Ophthalmic Nightly levETIRAcetam (KEPPRA) IV (Orderable) 750 mg Intravenous 2 times per day LORazepam metoprolol 12.5 mg Oral BID mupirocin Nasal BID nortriptyline 10 mg Oral Nightly pantoprazole (PROTONIX) 40 mg Intravenous BID Or pantoprazole 40 mg Oral BID polyethylene glycol 17 g Enteral BID potassium chloride in water 10 mEq Intravenous Once sodium chloride 0.9% 10 mL Intravenous 3 times per day 60 GM CONSISTENT CARB, CARDIAC DIET Impression and Plan: Seizure activity Respiratory arrest (intubated) Acute hypoxic respiratory failure A-fib with RVR and bradycardia CKD HFpEF Thrombocytopenia Plan: Reviewed vent settings. Reduced sedation and placed on SBT, will get a blood gas and extubate if appropriate. Neurology following, started on Keppra 750 mg twice daily Echo with new reduction in ejection fraction. Continue IV Lasix daily Cardiology considering PPM once extubated. Feeds: Tube feeds Prophylaxis: PPI, no heparin D/w RN and RT D/w the son at the bedside CCM time (min): 34 Randolph Cervantes Pulmonary & Critical Care Medicine * Rusty Sawyer MD - 06/25/2025 12:12 PM EDT Neurology Progress Note Admit date: 06/23/2025 Admitting diagnosis: Atrial fibrillation with RVR (HCC) [I48.91] Paroxysmal atrial fibrillation (HCC) [I48.0] Today's date: 06/25/2025 Current length of stay: 1 day(s) Impression and Recommendations Skyler Bautista is a 84 y.o. female with a history of Afib, CAD, HF, HTN, HLD, PVD, CKD, DANTE, Stroke whom I am seeing in neurologic consultation at the request of Duong Vitale MD for evaluation of Seizure. Seizure History of Left fontal hemorrhagic contusion Encephalopathy She had a seizure immediately following a possible cardiac arrest in the setting of bradykinesia and hypotension. She has a history of left frontal contusion after a fall while on Warfarin, which likely lowers her threshold for seizure. Her seizure was provoked but with this old lesion it would be reasonable to treat with Keppra. HCT was stable. Her mental status has normalized, which is reassuring against significant anoxic injury. -Continue Keppra 750 mg BID indefinitely. -No further neurodiagnostics. Neurology will sign off at this time. Please do not hesitate to contact me if something changes. Thank you for involving me in the patient's care. Rusty Sawyer MD Neurology 12:12 PM 06/25/25 Interval History She has been alert and conversant today Physical Examination: Vitals: 06/25/25 1200 BP: 141/64 Pulse: 83 Resp: 19 Temp: SpO2: 98% Body mass index is 22.46 kg/m??. General Exam: Gen: Well developed, well nourished woman Neck: Supple Pulm: normal respirations CV: Normal rate and rhythm. MSK: No bruising, swelling, erythema. Sedation: none Neuro Exam: Mental Status: Awake, alert, asks for water, able to ask question about her care such as what is a seizure and expresses understanding, no aphasia. Cranial Reflexes: Pupils, Eye Movements: PERRL crosses midline, conjugate CN7: no obvious facial droop. Motor: Tone: normal tone throughout RUE: 4+/5 strength RLE: 4+/5 streng LUE: 4+/5 strength LLE: amputated above knee I have personally reviewed the following new results: -HCT no acute abnormality -Cr stable -CBC stable -ECHO with mildly reduced EF Prior pertinent results: -Cr nml -LFTs nml -CBC with anemia, megaloblastic Neurology Disposition- Will Sign off?: Yes (work up complete) Timeframe for follow-up?: No neurology follow up needed * Courtney Lloyd, PARACHUTE OFFICER - 06/25/2025 11:32 AM EDT 06/25/25 1105 Respiratory $ Assess charge row Completed Assessment Type Assess Only Pulse 79 Resp 19 Level of Consciousness Alert Respiratory Pattern Regular;Even Chest Assessment Chest expansion symmetrical Oxygen Therapy/SPO2 Oxygen in Use Yes O2 Device Nasal cannula O2 Flow Rate (L/min) 3 lpm SpO2 96 % Oxygen Daily Oxygen Charge Initial Airway Care $ Airway Care Charge Row 1 Type of Airway Care Extubate 06/25/25 1105 Respiratory $ Assess charge row Completed Assessment Type Assess Only Pulse 79 Resp 19 Level of Consciousness Alert Respiratory Pattern Regular;Even Chest Assessment Chest expansion symmetrical Oxygen Therapy/SPO2 Oxygen in Use Yes O2 Device Nasal cannula O2 Flow Rate (L/min) 3 lpm SpO2 96 % Oxygen Daily Oxygen Charge Initial Airway Care $ Airway Care Charge Row 1 Type of Airway Care Extubate * Jacob Horowitz MD - 06/25/2025 10:34 AM EDT Images from the original note were not included. PROGRESS NOTE Assessment/Plan: Acute respiratory failure with hypoxia Intubated, on mechanical ventilator. FiO2 21% with PEEP of 8. On Precedex infusion. Tolerating spontaneous breathing trial. Plan for extubation. Pulmonology following. A-fib with tachybradycardia Bradycardic prior to cardiac arrest. Received atropine and dopamine. Off dopamine infusion. Back on low-dose Lopressor. Need discussion for pacemaker. Cardiology following. Seizure-like activity In context of cardiac arrest. With prior history of traumatic brain injury. CT head with no acute findings. Right paranasal sinus disease. On p.o. Keppra Neurology consulted. Acute on chronic diastolic heart failure NT proBNP 5000. Last echo with normal LVEF, severe tricuspid regurgitation, RVSP 41 mmHg Potassium running low. Replace potassium before diuretics. IV Lasix 40 mg daily. Monitor renal function closely. History of pulm embolism Not on anticoagulation due to subarachnoid bleed. Anemia Hemoglobin slowly trickling down. Monitor H&H closely. Thrombocytopenia Platelet counts are slowly trending down. Status post left above-knee amputation Type 2 diabetes mellitus Sliding scale insulin. History of subarachnoid hemorrhage/traumatic brain injury Hold anticoagulation. Dispo: Discussed with ICU team. Critically ill. Discussed with son at bedside. VTE Prophylaxis: PHARM VTE PROPH NON-CANDIDATE Active Hospital Problems Diagnosis *Atrial fibrillation with RVR (HCC) Seizure (HCC) Respiratory arrest (HCC) Atrial fibrillation with slow ventricular response (HCC) Acute pulmonary edema (HCC) Anemia in other chronic diseases classified elsewhere Stage 3a chronic kidney disease (HCC) Chest pain, unspecified type // Elevated troponin Acute on chronic heart failure with preserved ejection fraction (HCC) Hx of subarachnoid hemorrhage // 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 History of pulmonary embolus (PE) Paroxysmal atrial fibrillation (HCC) Type 2 diabetes mellitus, without long-term current use of insulin (HCC) Hypertension associated with diabetes (HCC) Subjective: Seen today in ICU and examined. On ventilator. Following commands. On Precedex infusion. Tolerating SBT. Objective: BP 135/69 Pulse 85 Temp 98.7 ??F (37.1 ??C) (Oral) Resp 15 Wt 122 lb 12.7 oz (55.7 kg) SpO2 95% BMI 22.46 kg/m?? I/O last 3 completed shifts: In: 254 [I.V.:67.5; NG/GT:120; IV Piggyback:66.6] Out: 1050 [Urine:1050] Weight: 122 lb 12.7 oz (55.7 kg) Constitutional: On mechanical ventilator Cardiovascular: Normal rate irregular rhythm Pulmonary/Chest: Effort normal and breath sounds normal. No respiratory distress. There are no wheezes. Abdominal: Soft. Bowel sounds are normal. No distension. There is no tenderness. There is no rebound and no guarding. Musculoskeletal: Left AKA noelle in place. Neurological: Bilateral hand edge sawyer strength 5/5 Skin: Skin is warm and dry. No erythema. Labs: Laboratory data and diagnostic testing reviewed 06/25/25. Jacob Horowitz MD 06/25/2025 11:10 AM This note was generated using voice recognition technology. It has been reviewed by the undersigned, however, may still contain unintended errors Total critical care time spent taking care of this patient with life threatening and unstable organ(s) failure, including direct patient contact,review of data including imaging and labs, discussionswith the other team members: 32 min * Sukh Garner, DO - 06/25/2025 7:36 AM EDT [facility] Follow Up Note Admit Date: 06/23/2025 Provider: Duong Vitale MD CC: Chief Complaint Patient presents with Atrial Fibrillation a fib rvr from [employer]. they report HR of 180, per squad HR 103. Reason for Consult: AF Subjective Intubated, sedated but arousable and appropriate Medications Current Facility-Administered Medications Medication Dose Route Frequency Provider Last Rate Last Admin 0.9 % NaCl infusion Intravenous Continuous PRN Spencer Luna APRN acetaminophen (TYLENOL) tablet 650 mg 650 mg Oral Q4H PRN Spencer Luna APRN Or acetaminophen (TYLENOL) suppository 650 mg 650 mg Rectal Q4H PRN Spencer Luna APRN Or acetaminophen (OFIRMEV) infusion 1,000 mg 1,000 mg Intravenous Q6H PRN Spencer Luna APRN acetaminophen (TYLENOL) tablet 1,000 mg 1,000 mg Oral 3 times per day Duong Vitale MD 1,000 mgat 06/25/25 0632 atorvastatin (LIPITOR) tablet 40 mg 40 mg Oral Nightly Duong Vitale MD 40 mg at 06/24/25 2015 atropine injection 1 mg 1 mg Intravenous PRN Spencer Luna APRN calcium carbonate (TUMS) chewable tablet 1,000 mg 1,000 mg Oral Daily Duong Vitale MD 1,000 mgat 06/24/25 09 Carboxymethylcellulose Sodium (THERA TEARS) 1 % ophthalmic gel 1 Drop 1 Drop Both Eyes 6 times per day Donnie Esqueda MD 1 Drop at 06/25/25 0632 cyanocobalamin tablet 1,000 mcg 1,000 mcg Oral Daily Duong Vitale MD 1,000 mcg at 06/24/25 0902 dexmedeTOMIDine in 0.9 % NaCL (PRECEDEX) 400 mcg/100 mL (4 mcg/mL) infusion 0.1- 0.8 mcg/kg/hr Intravenous Titrated Rusty Bhat APRN 7 mL/hr at 06/25/25 0642 0.5 mcg/kg/hr at 06/25/25 0642 dextrose 50 % solution 25 mL 25 mL Intravenous PRN John Rich MD 25 mL at 06/24/25 1627 fentaNYL (SUBLIMAZE) 50 mcg/mL infusion 0.5-3 mcg/kg/hr Intravenous Titrated Donnie Esqueda MD 0.6 mL/hr at 06/24/25 0735 0.5245 mcg/kg/hr at 06/24/25 0735 fentaNYL (SUBLIMAZE) IV bolus from bag 25-50 mcg Intravenous Q1H PRN Donnie Esqueda MD fUROsemide (LASix) injection 40 mg 40 mg Intravenous Daily Lianet Harris APRN glucagon (GLUCAGEN) injection 1 mg 1 mg Intramuscular PRN John Rich MD And sterile water injection 1 mL 1 mL Injection PRN John Rich MD ICU Electrolyte Replacement - Calcium 1 Each MISCELLANEOUS PRN Spencer Luna APRN ICU Electrolyte Replacement - Magnesium 1 Each MISCELLANEOUS PRN Spencer Luna APRN ICU Electrolyte Replacement - Phosphate 1 Each MISCELLANEOUS PRN Spencer Luna APRN ICU Electrolyte Replacement - Potassium 1 Each MISCELLANEOUS PRN Spencer Luna APRN Insulin Calculator (CONTINUOUS PICKLING LINE PICKLER) - FSBS (Correction Only) Intake Input 1 Each MISCELLANEOUS 6 times per day Spencer Luna APRN And insulin aspart U-100 (NovoLOG) injection 0-40 Units 0-40 Units Subcutaneous 6 times per day Spencer Luan APRN 4 Units at 06/24/25 0901 latanoprost (XALATAN) 0.005 % ophthalmic solution 1 Drop 1 Drop Ophthalmic Nightly Duong Vitale MD 1 Drop at 06/24/25 225 levETIRAcetam (KEPPRA) injection 750 mg 750 mg Intravenous 2 times per day Rusty Sawyer MD 750 mg at 06/24/252039 LORazepam (ATIVAN) 2 mg/mL injection melatonin tablet 5-10 mg 5-10 mg Oral Nightly PRN Duong Vitale MD 5 mg at 06/23/252203 mupirocin (BACTROBAN) 2 % ointment Nasal BID Duong Vitale MD Given at 06/24/252014 nitroGLYCERIN (NITROSTAT) SL tablet 0.4 mg 0.4 mg Sublingual Q5 Min PRN Spencer Luna APRN nortriptyline (PAMELOR) capsule 10 mg 10 mg Oral Nightly Duong Vitale MD 10 mg at 06/24/252014 ondansetron (ZOFRAN) tablet 4 mg 4 mg Oral Q4H PRN Duong Vitale MD Or ondansetron (ZOFRAN) injection 4 mg 4 mg Intravenous Q4H PRN Duong Vitale MD pantoprazole (PROTONIX) 40 mg in sodium chloride 0.9% 10 mL injection 40 mg Intravenous BID Spencer Luna APRN 40 mg at 06/24/252015 Or pantoprazole (PROTONIX) tablet 40 mg 40 mg Oral BID Spencer Luna APRN polyethylene glycol (GLYCOLAX, MIRALAX) packet 17 g 17 g Enteral BID Donnie sEqueda MD 17 g at 06/24/252015 potassium bicarbonate (EFFER-K) 10 mEq disintegrating tablet 30 mEq 30 mEq Enteral *Q2H Duong Vitale MD propofol (DIPRIVAN) infusion 10 mg/mL 5-50 mcg/kg/min Intravenous Titrated Donnie Esqueda MD Stopped at 06/24/25 1009 ranolazine (RANEXA) SR tablet 1,000 mg 1,000 mg Oral Daily Duong Vitale MD 1,000 mg at 06/23/25 1730 senna (SENOKOT) tablet 1-2 Tablet 1-2 Tablet Oral Daily PRN Duong Vitale MD sodium chloride 0.9% IV line flush 20-50 mL 20-50 mL Intravenous PRN Duong Vitale MD sodium chloride 0.9% IV line flush 50 mL 50 mL Intravenous PRN Stephan Rodriguez MD sodium chloride 0.9% syringe 10 mL 10 mL Intravenous 3 times per day Duong Vitale MD 10 mL at 06/25/25 0641 sodium chloride 0.9% syringe 5 mL 5 mL Intravenous PRN Stephan Rodrgiuez MD sodium chloride 0.9% syringe Intravenous PRN Duong Vitale MD ROS Review of Systems Reason unable to perform ROS: Intubated. Objective Physical Exam Vitals: 06/25/25 0700 BP: 125/60 Pulse: 83 Resp: 16 Temp: SpO2: 96% @LASTWEIGHT1@ Body mass index is 22.46 kg/m??. Physical Exam Vitals and nursing note reviewed. Constitutional: Appearance: She is ill-appearing. HENT: Head: Normocephalic and atraumatic. Cardiovascular: Rate and Rhythm: Normal rate. Rhythm irregular. Pulses: Normal pulses. Heart sounds: Murmur (2/6 systolic murmur at RLSB) heard. No friction rub. No gallop. Pulmonary: Effort: Pulmonary effort is normal. Breath sounds: Normal breath sounds. No wheezing, rhonchi or rales. Abdominal: General: There is no distension. Palpations: Abdomen is soft. Musculoskeletal: General: No swelling. Right lower leg: No edema. Neurological: General: No focal deficit present. Mental Status: Mental status is at baseline. I/Os 24 HR Intake/Output Summary (Last 24 hours) at 06/25/2025 0736 Last data filed at 06/25/2025 0642 Gross per 24 hour Intake 182.94 ml Output 1050 ml Net -867.06 ml Labs and Imaging Clinical labs and imaging studies were independently reviewed and results were discussed with the patient. Lab Results Component Value Date HSCTNT 83 (H) 06/23/2025 Lab Results Component Value Date WBC 4.2 06/25/2025 HGB 7.9 (L) 06/25/2025 HCT 23.5 (L) 06/25/2025 MCV 110.8 (H) 06/25/2025 PLT 63 (L) 06/25/2025 CMP Lab Results Component Value Date GLU 95 06/25/2025 CALCIUM 8.5 (L) 06/25/2025 ALBUMIN 3.6 06/24/2025 PROT 6.5 06/24/2025 NA 139 06/25/2025 K 3.4 (L) 06/25/2025 CO2 21 (L) 06/25/2025 CL 106 06/25/2025 BUN 16 06/25/2025 CREATININE 1.05 06/25/2025 ALKPHOS 149 (H) 06/24/2025 ALT 17 06/24/2025 AST 31 06/24/2025 LABBILI 0.6 06/24/2025 Pertinent Studies Assessment/Plan Skyler Bautista is a 84 y.o. 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 A fib w/ RVR on admission, placed on dilt gtt, became bradycardic and hypotension, had subsequent PEA arrest, now s/p ETT and left IJ central line. ECG on admission w/ rapid atrial fibrillation, possible old anteroseptal MS Hs Trop 92-83 NT Pro BNP 7992 LHC 11/25/2022- 1. 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 iFR of SVG to OM with results 0.98 Recommendations- Continue medical management and risk factor modification. Echo 05/2025: Normal LVEF, severe TR, RVSP 41 Nuclear MPI 12/2024: No ischemia, normal LVEF Intubated on exam, FiO2 40% Heart with tachycardia, irregular rhythm, no murmurs Lungs with mechanical breath sounds, coarse throughout No edema, ext well perfused Chronic AF, possibly tachy/amber, had seizures once in MICU, may have been etiology for LOC/Bradycardia while on floor. On dopamine gtt briefly, now off dopamine HR controlled, currently not on any AV angela blocking agents, on coreg 25 BID at home. Will start low dose lopressor to see if HR tolerates. Will discuss PPM if indicated once extubated No AC with ongoing anemia, thrombocytopenia and hx of SAH Echo with mildly reduced LVEF, severe TR EF decreased compared to prior, CXR with congestion but clinically does not appear decompensated, no significant edema, on 25% FiO2 and low PEEP. Continue lasix 40mg IV daily Type II myocardial demand injury, no ACS. Continue atorvastatin. Advanced age, multiple comorbidities, overall guarded prognosis Signed: Sukh Garner DO, [facility] * Isidro Clifford, MAHENDRA - 06/25/2025 12:45 AM EDT Images from the original note were not included. Mini Rounding Note Ventilator Ventilator: Yes If intubated < 48 hours, was sputum collected? Yes Date/Time PEEP FiO2 (%) 06/25/25 0032 8 cmH20 25 % 06/24/25 1934 8 cmH20 25 % 06/24/25 1536 8 cmH20 25 % Plan: SAT: N/A: No sedation SBT: Plan for SBT today Airway LDAs Airway Duration Non-Surgical Airway ETT- Cuffed 1 day Blood Glucose Recent Labs 06/24/25 0510 06/24/25 0815 06/24/25 1216 06/24/25 1619 06/24/25 1710 06/24/252006 GLU 229* -- -- -- -- -- FSBS -- < > 112* 65* 129* 84 < > = values in this interval not displayed. Insulin Drip: No Basal Insulin Orders: no Prandial Insulin Orders: no Correctional Algorithm: Medium (CF 25) Plan: Continue current treatment plan - glucose controlled Nutrition Last 4 Weights 06/24/2025 0044 06/24/2025 0556 Weight: 126 lb 1.7 oz (57.2 kg) 122 lb 12.7 oz (55.7 kg) Net weight change in lbs since admission: Diet Order: 60 GM CONSISTENT CARB, CARDIAC DIET ICU Length of Stay: 1 days Plan: [employer] Director monitoring CLABSI Prevention CHG Application: Completed (06/24/25 0546) Central Line LDAs CVC Line Duration CVC Triple Lumen 06/24/25 Left Internal jugular 1 day CVC Triple Lumen 06/24/25 Left Internal jugular-Line necessity (Daily): Specific medication (pressors, vesicants, chemo, prostacyclins) Appropriate to DC central line (use PIV instead)? Yes- contact provider to place order CAUTI Prevention Garrido Cath LDA None Ana Care/Garrido Care: Ana wipes (06/24/25 1445) Appropriate to DC garrido (alternatives: external catheter, urinal, etc)? N/A (no garrido catheter) Restraints Restraints: no Most Recent Restraint Order (From admission, onward) None Wound Care Srinivasan Score for the past 24 hrs: Srinivasan Scale Score 06/24/25 1600 (!) 10 06/24/25 0845 (!) 8 06/24/25 0100 (!) 10 Prevention options initiated?: Yes Wound LDAs None Foam Border: (not recorded) Foam Border Applied/Changed Location: (not recorded) Plan: Continue current interventions Daily Updates Admission Admitted: 06/23/25 1533 Last Updated: 44 Overdue (9) ADL: Screening/Devices Advanced Directives Height/Weight Learning Assessment Nutrition Safety Screening: AUDIT/DAST Safety Screening: Fall History Sign consent: [facility] in [facility] Spiritual Review: Values & Beliefs Completed (20) Allergies Arrival (Notification/Handbook) Srinivasan Scale Care Plan Exist Discharge Planning Fall Protection Meds: 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 PROGRESS NOTE Admitted with: 06/23* Atrial fibrillation with RVR (HCC) EDOD: Not Ready for Discharge because: on Vent Assessment/Plan: Resp arrest -On Vent -ICU -overnight events noted -discussed w certified activities director -Vent bundle NG feeds ---Nutrition following Atrial fibrillation with RVR (HCC) ICU -Cardizem drip stopped last PM before rapid response and resp arrest -Coreg ( HOLDING) -Cards eval pending -Recent Echo reviewed -NSR this AM History of pulmonary embolus (PE) No current AC -hx Sub Arachnoid bleed Hypertension associated with diabetes (HCC) Coreg HELD -Recent A1C 5.4 -NG feeds and CONTINUOUS PICKLING LINE PICKLER for sugars now that in ICU Acute on chronic heart failure with preserved ejection fraction (HCC) Lasix IV 40 daily -Cards eval -Trend BNP -Follow electrolytes and renal fxn on lasix Hx of subarachnoid hemorrhage // 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 By history No current AC Chest pain, unspecified type // Elevated troponin Trend Troponin Cards to see -Ranexa held > Vent -Hx of CAD -Coreg held Type 2 diabetes mellitus, without long-term current use of insulin (HCC) Recent A1c 5.4 Stage 3a chronic kidney disease (HCC) Stable Anemia in other chronic diseases classified elsewhere Stable Acute pulmonary edema (HCC) Lasix given in ER > Continue daily -Recent Echo reviewed -Follow -Cards to see VTE Prophylaxis: PHARM VTE PROPH NON-CANDIDATE Active Hospital Problems Diagnosis *Atrial fibrillation with RVR (HCC) Seizure (HCC) Respiratory arrest (HCC) Atrial fibrillation with slow ventricular response (HCC) Acute pulmonary edema (HCC) Anemia in other chronic diseases classified elsewhere Stage 3a chronic kidney disease (HCC) Chest pain, unspecified type // Elevated troponin Acute on chronic heart failure with preserved ejection fraction (HCC) Hx of subarachnoid hemorrhage // 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 History of pulmonary embolus (PE) Paroxysmal atrial fibrillation (HCC) Type 2 diabetes mellitus, without long-term current use of insulin (HCC) Hypertension associated with diabetes (HCC) Subjective: Events overnight reviewed. Sedated and on vent this AM Objective: BP 125/62 Pulse 59 Temp 97.5 ??F (36.4 ??C) (Oral) Resp 16 Wt 122 lb 12.7 oz (55.7 kg) SpO2 98% BMI 22.46 kg/m?? I/O last 3 completed shifts: In: 531.1 [I.V.:108; IV Piggyback:423.1] Out: 1250 [Urine:1250] Weight: 122 lb 12.7 oz (55.7 kg) Constitutional: Ill appearing female - sedated on vent - comfortable No distress. Cardiovascular: Normal rate and regular rhythm. Exam reveals no friction rub. No murmur heard. Pulmonary/Chest: Effort normal and breath sounds normal. No respiratory distress. There are no wheezes. Abdominal: Soft. Bowel sounds are normal. No distension. There is no tenderness. There is no rebound and no guarding. Musculoskeletal: No edema. Neurological: RASS -3 Skin: Skin is warm and dry. No erythema. Labs: Laboratory data and diagnostic testing reviewed 06/24/25. TRIGLYCERIDES Collected: 06/24/25 05 Final result Specimen: Blood, Venous Triglyceride 107 mg/dL 06/24/25 0553 COMPREHENSIVE METABOLIC PANEL Collected: 06/24/25 05 Final result Specimen: Blood, Venous Sodium 136 mmol/L Creatinine 1.17 mg/dL Potassium 4.1 mmol/L Albumin 3.6 gm/dL Chloride 103 mmol/L Total Protein 6.5 gm/dL Total CO2 21 Low mmol/L Bili Total 0.6 mg/dL Anion Gap 12 mmol/L ALT 17 U/L Calcium 8.5 Low mg/dL AST 31 U/L Glucose Lvl 229 High mg/dL Alk Phos 149 High U/L BUN 16 mg/dL eGFR (CKD-EPIcr 2020) 46 Low mL/min/1.73 m2 06/24/25 0553 NT PROBNP Collected: 06/24/25 0510 Final result Specimen: Blood, Venous NT Pro-BNP 7,992 High pg/mL 06/24/25 0539 BLOOD GAS ARTERIAL Collected: 06/24/25 05 Final result Specimen: Blood, Arterial pH 7.45 pH Base Excess -1.8 mmol/L pCO2 31 Low mmHg O2 Sat 97.7 % pO2 86 mmHg Inspired O2 50 HCO3 21.8 Low mmol/L P/F Ratio 172 Low mmHg TCO2 21 Low mmol/L 06/24/2534 CBC Collected: 06/24/25509 Final result Specimen: Blood, Venous WBC 4.5 x10(3)/mcL MCH 37.2 High pg RBC 2.23 Low x10(6)/mcL MCHC 33.2 g/dL Hgb 8.3 Low g/dL RDW 20.0 High % Hct 25.0 Low % Platelet 83 Low x10(3)/mcL MCV 112.1 High fL MPV 12.8 High fL 06/24/25232 BLOOD GAS ARTERIAL Collected: 06/24/25224 Final result Specimen: Blood, Arterial pH 7.38 pH Base Excess -2.5 Low mmol/L pCO2 38 mmHg O2 Sat 86.7 Low % pO2 56 Low mmHg Inspired O2 70 HCO3 22.3 mmol/L P/F Ratio 80 Low mmHg TCO2 21 Low mmol/L Duong Vitale MD 06/24/2025 11:08 AM * Denisa Armando RD,LD - 06/24/2025 9:14 AM EDT [facility] Nutrition Malnutrition Reassessment Evidence Supported Malnutrition Diagnosis: No malnutrition identified Nutrition Problem/Diagnosis: Nutrition Diagnosis Problem 1: Inadequate oral intake related to impaired respiratory function as evidenced by NPO or clear liquid status due to medical condition, new medical diagnosis or change in existing diagnosis or condition. Status: New nutrition diagnosis Nutrition Prescription: Kcals: 994-1027 kcal (PSU w/55.7 kg) Protein (g): 67-111 Protein needs based on: 1.2-2.0 g pro/55.7 kg Fluid (ml): defer to MD Plan/Interventions: Meals and Snacks: 60 gm Carbohydrate Controlled, Cardiac, NPO (recommend NPO d/t intubation) Enteral Nutrition: Recommend NGTF-Vital High Protein @ 10 ml/hr, as tolerated advance by 10 ml q 6 hr to goal rate of Vital High Protein @ 45 ml/hr = 1170 kcal (1080TF +90Propofol), 94 g protein, 1087 ml free water (907TF + 180std flush). Will monitor TF indication and adjust recs as indicated Vitamin and Mineral Supplements: Sodium, Chloride, Vitamin B12 Nutrition-Related Medication Management: Lipitor, Tums, Lasix, Novolog, Insulin calculator, Fentanyl, Propofol @ 3.4 (90 kcal) Collaboration And Referral Of Nutrition Care: Team meeting (ICU rounds) Skyler Bautista is a 84 y.o. female patient. Admit Diagnosis: Atrial fibrillation with RVR (HCC) [I48.91] Paroxysmal atrial fibrillation (HCC) [I48.0] Reason For Assessment: NPO on vent in ICU Subjective: Subjective Comment: Pt was intubated in the early am. No pressors prescribed at this time Anthropometric Measurements: Height: 5' 2 (157.5 cm) Weight: 122 lb 12.7 oz (55.7 kg) BMI (Calculated): 22.46 Does Patient Have An Amputation?: Yes Percent Amputation: 10 % (AKA) Adjusted BMI: 24.8 Adjusted IBW +/- 10%: 99 lb (44.9 kg) (110# adjusted by 10%) Adjusted % IBW: 124 Weight History Intervals: 12 Month;6 Month;3 Month;1 Month 1 Month--Wt History (lb): 122 lb 6.4 oz (55.5 kg) (< 1 month 06/11/25) 1 Month--Wt Change (lb): 0 1 Month--% Wt Change: 0 % 3 Month--Wt History (lb): 137 lb (62.1 kg) (03/26/25 office visit, foot swelling was noted and seemshigher than norm. Suspect was a reported wt from admit 03/08 when lasix was prescribed and CHF was noted) 3 Month--Wt Change (lb): 14 3 Month--% Wt Change: 10.22 % 3 Month--Wt Gain or Loss: Loss 3 Month--Wt Loss Significance: Severe 6 Month--Wt History (lb): 125 lb 7.1 oz (56.9 kg) (01/10/25) 6 Month--Wt Change (lb): 2.6 6 Month--% Wt Change: 2.07 % 6 Month--Wt Gain or Loss: Loss 6 Month--Wt Loss Significance: Not significant 12 Month--Wt History (lb): 122 lb 14.4 oz (55.7 kg) (06/04/24) 12 Month--Wt Change (lb): 0 12 Month--% Wt Change: 0 % As noted above no significant unintential wt loss is noted. Food/Nutrition Related History: Dietary Orders Ordered 60 Gram Consistent Carbohydrate, Cardiac Diet DIET EFFECTIVE NOW 06/23/25 1540 Food Insecurity Within the past 12 months, you worried that your food would run out before you got the money to buymore.: Never true Within the past 12 months, the food you bought just didn't last and you didn't have money to get more.: Never true Supplement Acceptance: Annw glucerna on recent admit Tube Feeding?: No TPN?: No Food Allergies: NKFA Nutrition Focused Physical Findings: Functional Status: Bedridden (w/intubation) LDAs- Active NG/OG/NJ,Wound,Pressure Injury,or Drain Drain Duration External Urinary Catheter Female Purewick 1 day NG/OG Tube Center mouth <1 day I/O last 3 completed shifts: In: 531.1 [I.V.:108; IV Piggyback:423.1] Out: 1250 [Urine:1250] Edema: Abdomen: Abdominal/GI When was last BM? (Date): 06/22/25 Stool Assessment: Biochemical Data/Medical Tests: Pertinent Meds: Lipitor, Tums, Lasix, Novolog, Insulin calculator, Fentanyl, Propofol @ 3.4 (90 kcal) Vitamins/Mineral Supplements: B12, NaCl Pertinent Labs: gluc 229, H/H 8.3/25.0, Na+ 136, Ca+ 8.5 BNP 7992, 9/ trig 107 Pertinent Medical Tests/Procedures: 05/24 intubated, NGTplaced Pertinent Medical History: DM (05/03/25 a1c 5.4%) HTN, CHF, liver disease, HLD, stroke, CAD, CKD3, CABG, PE 05/24/25 L-AKA Clinical Course: Clinical Course: Admitted from [facility] d/t Afib w/AVR, CP w/elevated troponin, CHFand Acute Pulm edema-lasix prescribed, Anemia, Intubated 05/24 d/t unresponsiveness and seizure like activity * Eleuterio Renteria S, [employer] - 06/24/2025 7:42 AM EDT 06/24/25 0742 Ventilator Selection Ventilator Adult Non-Surgical Airway ETT- Cuffed Placement Date/Time: 06/24/25 0047 Placed By: Licensed provider Mask Ventilation: Ventilated by mask Technique: Video laryngoscope Airway Device: ETT- Cuffed Device Size: 7.5 mm Laryngoscope: McgrathBlade Size: 3 Location: Oral Grade View: ... Secured at (cm) 23 cm Measured From Lips Secured Location (Q2H) Left Secured By Commercial tube kline Site Condition Dry Cuff Pressure (cm H2O) 30 cm H2O Vent Oral Hygiene Oral suction with yankauer (Q2H) Artificial Airway Artificial Airway Type ETT Artificial Airway Size 7.5 Suction Catheter Size 14 Resuscitation device at bedside? Yes Trach box at bedside? No Ventilator Settings $Pt/Vent Assessment Service Code Completed Vent ID [id number] Device Ventilator Vent Type (S)CMV+ Vent Bundle Implemented Yes Vent Mode A/C Waveform Descending Vt Set 400 Set Rate 16 br/min FiO2 (%) 35 % Trigger flow L/min 5 liters/min Insp Time 0.9 Sec(s) Rise Time/P-ramp 70 % Plimit 30 % PEEP 8 cmH20 Humidity HME Ventilator Measurements SpO2 99 % Peak Airway Pressure 21 cmH20 Mean Airway Pressure 10 cmH20 Plateau Pressure (Ppl) 13 cmH20 Resp Rate Total 20 br/min Gissell TV 402 Total Ve 6.7 liters I:E 1:3.2 Cstat 37.5 cmH20 Total PEEP 8 cmH20 HOB>/= 30 Degrees Y Ventilator Alarms Alarms On Y High Rate 40 br/min Low Vte 200 mL High Vte 1200 mL Low Ve 3 L/min High Ve 20 L/min Low Ppeak 8 cmH2O High Ppeak 40 cmH2O Apnea Interval 20 sec(s) Respiratory Assessment $ Assess charge row Completed Assessment Type Assess Only Pulse 58 Resp 16 Level of Consciousness Intubated;Sedated Respiratory Pattern Regular Breath Sounds Breath Sounds Bilateral Diminished RC Airway Care $ RC Airway Care Charge Row 1 Type of Airway Care Suction Number of attempts 1 Airway Device ETT Suction Site Oral;ET Tube Suction catheter size 14 Secretion Amount None * John Rich MD - 06/24/2025 3:08 AM EDT [facility] Physician - Brief Progress Note PERMANENT 06/24/2025 04:06 [facility] - ICU - 18 - F, SKYLER CAI Date of Service 06/24/2025 04:06 HPI/Events of Note [facility] Provider Assessment Note Ms. Bautista is an 84-year-old female admitted to the ICU for management shock, presumed cardiogenic secondary to bradycardia complicated by a possible brief episode of pulseless electrical activity. She presented to the emergency department 06/23 for evaluation of atrial fibrillation and shortness of breath. Pertinent medical history: AFib, coronary artery disease, congestive heart failure, diabetes, hyperlipidemia, hypertension, peripheral vascular disease, unspecified renal insufficiency, strokes Most recent vital signs: Afebrile Pulse 67 Respiratory rate 21 Blood pressure 123/61 Pulse oximetry 99% on mechanical ventilation, FiO2 100% Pertinent labs: ABG 7.38/38/56/22 on 70% FiO2 NT proBNP at presentation 7449 Troponin elevated, downward trend earlier today. Metabolic panel yesterday morning with a bicarb of 20, anion gap 11 Creatinine near prior evaluations 0.84. D-dimer elevated INR 1.32 Glucose 116 Hemogram with multiple abnormalities. Thrombocytopenia. Leukopenia. No differential noted Macrocytic anemia, chronic Urinalysis unremarkable Most recent fingerstick glucose 143 Pertinent imaging: EKG: None available for review from this evening. Most recent in system at presentation reported atrial fibrillation with rapid ventricular response of 139 beats per minute. Possible anterior septal myocardial infarction. Altered progression across the precordial leads is noted Most recent echo May 2025 reports an EF of 55-60% with indeterminate diastolic function. Elevated estimated pulmonary artery systolic pressure. Severe tricuspid regurgitation. Mild right atrial enlargement Chest x-ray this evening after placement of endotracheal tube reports appropriate positioning. Otherwise notes coiling of the enteric tube in the esophagus. Pulmonary edema and pleural effusions are noted. CT angiography of the chest reports no evidence of acute pulmonary embolism, no pneumothorax. Bilateral pleural effusions and emphysema. Current interventions: ICU admission Intubation, mechanical ventilation Dopamine infusion for bradycardia Epinephrine infusion Pain/anxiety/delirium management propofol, fentanyl Additional assessment/intervention: Chart reviewed, case discussed In agreement with the use of vasopressors at this time however suspect that her bradycardia and cardiogenic shock is more likely attributed to the combination of beta blockers and calcium channel blockers administered to slow down her heart rate earlier this hospitalization. Management of the toxicity of these agents is best addressed physiologically by IV glucagon and calcium. Epinephrine and dopamine are appropriate however a few steps further down the pathway, but given her critical decompensation their uses still appropriate. Bolus 5 mg of glucagon now bolus 2 g of calcium gluconate If she responds well, we may discuss transitioning to an infusion of glucagon. If she does not, next steps include hyper insulin euglycemic therapy, and methylene blue. Best Practices: DVT prophylaxis: SCDs alone. Heparin on hold due to thrombocytopenia. If the thrombocytopenia is stable, it is usually appropriate to continue until platelets are less than 50 Peptic ulcer prophylaxis Protonix Low tidal volume ventilation: Currently set at 450 mL. 62 in female. Significant hypoxemia. Decreased tidal volume to 300. Permissive hypercapnia is reasonable however in the setting of her bradycardia and other instabilities, a slightly higher PH goal may be more appropriate. Aim for PH greater than 7.25. Sepsis best practices are not applicable Glycemic management: History diabetes. Add sensitivity factor correctional insulin q.4 hours Contact [facility] [email or web address] for any needs if bedside physician is not present. Critical care; 30 minutes total evaluation time Interventions Major-Arrhythmia - evaluation and management, Shock - evaluation and management * Sarah Head RN - 06/24/2025 1:09 AM EDT RR called on TCU Patient was found minimally responsive upon arrival Bradycardic Atropine given Transferred to ICU Upon arrival to ICU, patient appeared to be seizing. Ativan was given per MD order Pt was then intubated and placed on a ventilator Epi gtt was started per MD order for persistent bradycardia Son was called and will be coming in from [place], [place] Belongings were charted and skin on transfer completed * Donnie Esqueda MD - 06/24/2025 12:42 AM EDT Rapid response was called secondary to patient having bradycardia in the 40s and with hypotension with systolic blood pressure less than 70. Of note patient earlier on was in A-fib for RVR and was onCardizem drip. She had received melatonin. Her Cardizem drip was of before rapid response was called. In the course of the rapid response patient CODE STATUS was verified. Per nursing who talked to family patient's is a limited code with no chest compression but with everything else. Physical Examination Constitutional: Patient was staring into ceiling. HENT: Normocephalic, atraumatic. Eyes: No conjunctival injection. No scleral icterus. Neck: Trachea midline. Cardiovascular: Diminished heart sounds. Bradycardia. Thorax & Lungs: Diminished breath sounds. Abdomen: Bowel sounds normal, Soft, non tender Genitourinary: With purewick. Skin: Warm, Dry, No erythema, No rash. Extremities: Left avgqx-ddw-hoar amputation with noelle at stump. Neurologic: Obtunded Psychiatric: Obtunded Assessment and plan A-fib with slow ventricular response Respiratory arrest Seizures Patient received atropine 1 mg x 3. She remained bradycardic with hypotension. EKG interpreted by myself showed A-fib with slow ventricular response. Magnesium 4mg IV was ordered as last magnesium onfile was 1.5. The patient was transported to the intensive care unit. Immediately patient got to intensive care unit she began to seize. A 2 mg of Ativan was ordered. Patient seized breathing. She was Ambu bagged. Patient seems to have lost her pulse momentarily. She was PE on the monitor. Her pulse was later palpated. Patient was immediately intubated. She was started on epinephrine drip. Dopamine was ordered. Was placed propofol and fentanyl drip. Due to the immediate potential for life-threatening deterioration due to Afib with bradycardia, I spent a total of 110 minutes providing critical care. Time spent included time at the bedside with patient. Time reviewing charts. Time discussing case with nursing staff and ancillary stuff. This time is excluding time spent performing procedures. * Alyson Davey RN - 06/24/2025 12:34 AM EDT Called and spoke with son, Edgar, he informed that Pt is a DNR (no compressions) but is full medicalinterventions (ACLS meds, cardioversion, and intubation), other RN Sarah was present during call. Hesays he and other family are out of town, he was informed that Pt is now in the ICU. Son was informed of Pt's current status with bradycardia and low BP, informed that she received multiple doses of atropine. * Maritza Howard RN - 06/24/2025 12:00 AM EDT Patient noted to be bradycardic on monitor. Upon entering room, patient minimally responsive to painful stimuli. Vital signs assessed. Pt also hypotensive at 61/47. Rapid response initiated. Charge nurse at bedside. * Duong Vitale MD - 06/23/2025 4:38 PM EDTAssociated Problem(s): Atrial fibrillation with RVR (HCC) Admit TCU -Cardizem drip -Coreg -Cards eval -Recent Echo reviewed * Duong Vitale MD - 06/23/2025 4:38 PM EDTAssociated Problem(s): History of pulmonary embolus (PE) No current AC -hx Sub Arachnoid bleed * Duong Vitale MD - 06/23/2025 4:38 PM EDTAssociated Problem(s): Hypertension associated with diabetes (HCC) Coreg -Recent A1C 5.4 -DM diet but will not follow blood sugars * Duong Vitale MD - 06/23/2025 4:38 PM EDTAssociated Problem(s): Acute on chronic heart failure with preserved ejection fraction (HCC) Admit as above Lasix -Cards eval -Trend BNP -Follow electrolytes and renal fxn on lasix * Duong Vitale MD - 06/23/2025 4:38 PM EDTAssociated Problem(s): Hx of subarachnoid hemorrhage // 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 By history No current AC * Duong Vitale MD - 06/23/2025 4:38 PM EDTAssociated Problem(s): Chest pain, unspecified type // Elevated troponin Trend Troponin Cards to see -Ranexa -Hx of CAD -Coreg * Duong Vitale MD - 06/23/2025 4:38 PM EDTAssociated Problem(s): Type 2 diabetes mellitus, without long-term current use of insulin (HCC) Recent A1c 5.4 * Duong Vitale MD - 06/23/2025 4:38 PM EDTAssociated Problem(s): Stage 3a chronic kidney disease (HCC) Stable * Duong Vitale MD - 06/23/2025 4:38 PM EDTAssociated Problem(s): Anemia in other chronic diseases classified elsewhere Stable * Duong Vitale MD - 06/23/2025 4:38 PM EDTAssociated Problem(s): Acute pulmonary edema (HCC) Lasix given in ER > Continue q 12 hr -Trest A fib RVR -Recent Echo reviewed -Follow * Chio Garber RN - 06/23/2025 4:24 PM EDT 06/23/25 1613 ED Screening Medical Record Reviewed Yes Does patient meet high risk triggers? Age over 80;Is patient high risk of readmission on predictiveanalytic or RRS score;Multiple acute diagnosis;Exacerbation of chronic illness;More than 2 ER visits in 30 days Who you interviewed In person interview with patient;In person interview with family/friend (Identify) (Niece - Shannon Jones) Pt identified support person Family Who does pt identify as their caregiver/support person who will be their active partner in the dc planning process Pt identified caregiver/support person for dc planning process Caregiver Name Edgar Buitrago - son Caregiver Mental Status Alert and oriented Activities of Daily Living Prior to Admission Independent with ADLS;Independent with Homemaking;Needs assistance with mobility DME Used at Home Wheelchair Wheelchair type Manual Patient's Living Arrangments Prior to Admission? [facility] Care Facility Name [facility] Support Systems Children;Family Members Is PCP listed on facesheet correct? No Who does patient report as PCP? Dr. Howell in [place], [place] Identified psychosocial/financial issues Assist with discharge arrangement for patients transferring to SNF's Follow Up Assigned To: Referral not needed concern identified and addressed by T[employer] P[employer] Layer [employer]per Anticipated post-acute care needs Nursing Facility ED Screening Completed Initial screening complete, post-acute discharge planning evaluations needs identified, assessment to follow Observation Information Provided to Patient/Family Yes form signed OBS notice provided Patient provided verbal explanation of OBS status and opportunity to ask questions. Answered questions to best of ability;Patients' family provided verbal explanation of OBS status and opportunity to ask questions. Answered questions to best of ability APS/CPS Report Made No Repisodic List provided N/A - Resumption care. Patient active with post acute partner prior to admission Actual Discharge Plan 06/23/25 ED CC INITIAL: Met with patient and Rekha Redmond) at bedside in ED.Patient is being admitted with Atrial fibrillation with RVR, Acute pulmonary edema, Elevated troponin and Pleural effusion. GARCIA explained, signed and placed on chart. Patient currently at [facility] for SNF. Patient wishes to return at discharge to complete therapy. Resumption referral sent via [employer]. Mostly independent with ADLs. DME includes a MWC. PCP is Dr. Howell in [place], [place]. [facility]. No issues with medication affordability. SDOH completed. No needs identified at this time. Anticipate Niyane (Shannon) to transport at discharge. CC to follow. * Chio Garber RN - 06/23/2025 4:13 PM EDT 06/23/25 1612 SDOH Exclusion criteria SDOH screen exclusion criteria met No Living Situation What is your living situation today? I have a steady place to live Think about the place you live. Do you have problems with any of the following? None of the above Food Insecurity Within the past 12 months, you worried that your food would run out before you got the money to buymore. Never true Within the past 12 months, the food you bought just didn't last and you didn't have money to get more. Never true Transportation In the past 12 months, has lack of reliable transportation kept you from medical appointments, meetings, work or from getting things needed for daily living? No Utilities In the past 12 months has the [employer], gas, oil, or water [employer] threatened to shut off services in your home? No Safety How often does anyone, including family and friends, physically hurt you? 1 How often does anyone, including family and friends, insult or talk down to you? 1 How often does anyone, including family and friends, threaten you with harm? 1 How often does anyone, including family and friends, scream or curse at you? 1 Financial Resource Strain How hard is it for you to pay for the very basics like food, housing, medical care, and heating? Not very Employment Do you want help finding or keeping work or a job? I do not need or want help Family and Community Support If for any reason you need help with day-to-day activities such as bathing, preparing meals, shopping, managing finances, etc., do you get the help you need? I get all the help I need How often do you feel lonely or isolated from those around you? Never Education Do you speak a language other than [place] at home? No Do you want help with school or training? For example, starting or completing job training or getting a high school diploma, GED or equivalent. No Physical Activity On average, how many days per week do you engage in moderate to strenuous exercise (like a brisk walk)? 0 days On average, how many minutes do you engage in exercise at this level? 0 min Substance Use How many times in the past 12 months have you had 5 or more drinks in a day (males) or 4 or more drinks in a day (females)? One drink is 12 ounces of beer, 5 ounces of wine, or 1.5 ounces of 80-proofspirits Never How many times in the past 12 months have you used tobacco products (like cigarettes, cigars, snuff, chew, electronic cigarettes)? Never How many times in the past year have you used prescription drugs for non-medical reasons? Never How many times in the past year have you used illegal drugs? Never Over the last 2 weeks, how often have you been bothered by any of the following problems? Little interest or pleasure in doing things 0 Feeling down, depressed, or hopeless 0 PHQ-2 Total Score 0 If any questions above are blank did patient decline to complete PHQ-2 No Stress Do you feel stress - tense, restless, nervous, or anxious, or unable to sleep at night because yourmind is troubled all the time - these days? Not at all Disabilities Because of physical, mental or emotional condition, do you have serious difficulty concentrating, remembering or making decisions? (5 yrs. old or older) No Because of physical, mental or emotional condition, do you have difficulty doing errands alone suchas visiting a doctor's office or shopping? (15 yrs. old or older) No documented in this encounter H&P Notes * Duong Vitale MD - 06/23/2025 3:55 PM EDT Images from the original note were not included. History and Physical Name: Skyler Bautista : 1940 AGE: 84 y.o. PCP: No Pcp, Per Patient Admitting Physician: Duong Vitale MD Date of Admit: 06/23/2025 Chief Complaint: Chief Complaint Patient presents with Atrial Fibrillation a [facility]. they report HR of 180, per squad HR 103. History of Present Illness: Skyler Bautista is a 84 y.o. female admitted thru the ER after being sent by [facility] for increasing dyspnea and tachycardia. Found to have Afib w RVR by EMS and now on cardizem drip w sx improved.Also given Lasix for Pulm edema in ER. PT has had increasing SX for 3-4 days. Her heart [facility] EMS states that her heart rates are in t he 150s during transport. She has had no cough, fever, or chills. She has had some chest pain. It is described as a burning sensation. It has been fairly constant and present in the substernal region. She states it is 2 out of 10 in intensity currently. No exacerbating or relieving factors have been noted. Past Medical History: Diagnosis Date A-fib (HCC) [...] Knee Amputation; Surgeon: Vargas Wolf MD; Location: [facility] MAIN OR; Service: Vascular CARDIAC CATHETERIZATION CARDIAC [...] IR REVAS FEM POP ART 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 01/30/2025 IR REVAS FEM POP ART 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 01/30/2025 Vargas Wolf MD [facility] IR IR [...] Location: [facility] MAIN OR; Service: Podiatry Allergies Allergen Reactions Lidocaine Rash Nitrofurantoin Rash Morphine Other (See Comments) Social History Socioeconomic History Marital status: Spouse name: None Number of children: None Years of education: None Highest education level: None Tobacco Use Smoking status: Former Current packs/day: 0.00 Types: Cigarettes Quit date: 1991 Years since quittin.7 Passive exposure: Past Smokeless tobacco: Never Vaping [...] true Transportation Needs: No Transportation Needs (05/01/2025) [facility] IP Transportation In the past 12 months, has lack of reliable transportation kept you from medical appointments, meetings, work or from getting things needed for daily living?: No Physical Activity: Inactive (05/01/2025) Exercise Vital Sign Days of Exercise per Week: 0 days Minutes of Exercise per Session: 0 min Stress: No Stress Concern Present (05/01/2025) [employer] - Occupational Stress Questionnaire Feeling of Stress : Not at all Received from [employer] ([place], [place], [place], [place]) Family and Community Support Intimate Partner Violence: Not At Risk (08/06/2024) Received from [facility] Humiliation, Afraid, Rape, and Kick questionnaire Fear of Current or Ex-Partner: No Emotionally Abused: No Physically Abused: No Sexually Abused: No Housing Stability: Low Risk (08/06/2024) Received from [facility] Housing Stability Vital Sign Unable to Pay for Housing in the Last Year: No Number of Places Lived in the Last Year: 1 Unstable Housing in the Last Year: No No family history on file. (Not in a hospital admission) Review of Systems: The listed systems were reviewed and reveal the following in addition to any already discussed in the HPI: Constitutional: No fever, chills, or weight loss. Eyes: No visual disturbance. HENT: No headache, hearing loss, epistaxis, sore throat. Respiratory: No, cough, hemoptysis or pleuritic chest pain. Cardiovascular: No PND or orthopnea, Endocrine: No polyuria, polydypsia, or polyphagia. GI: No abdominal pain, nausea, vomiting, diarrhea, melena or hematochezia. : (+)dysuria, noBP 140/78 frequency, hesitancy, or hematuria Musculoskeletal: No myalgias or muscle weakness. Neurologic: No focal numbness or weakness. Skin: No edema, jaundice, or skin discoloration. Psychiatric: No depression, homicidal or suicidal ideation. Hematologic/Allergic: No history of blood clots, bleeding or easy bruising. OBJECTIVE: Physical Exam: Vitals: 06/23/25 1530 BP: Pulse: 83 Resp: 23 SpO2: 99% BP 140/78 Constitutional: No acute distress. Eyes: PERRL, conjunctiva normal. HENT: Atraumatic,mouth moist. Neck: normal range of motion, no tenderness, supple, no JVD. Respiratory: No respiratory distress, normal breath sounds, no rales, no wheezing. Cardiovascular: Normal rate, normal rhythm, no murmurs, no gallops, no rubs. Abdomen: Soft, nondistended, non tender,no rebound. Bowel sounds are present. Musculoskeletal: No edema, no tenderness, no deformities. Integument: Well hydrated, no rash, no jaundice. Neurologic: Alert, awake oriented x 3. No gross focal deficits noted. Psychiatric: Speech and behavior appropriate. Labs: Labs: CBC: Lab Results Component Value Date WBC 3.4 (L) 06/23/2025 RBC 2.72 (L) 06/23/2025 HGB 10.2 (L) 06/23/2025 HCT 30.1 (L) 06/23/2025 MCV 110.7 (H) 06/23/2025 MCHC 33.9 06/23/2025 PLT 84 (L) 06/23/2025 BMP: Lab Results Component Value Date NA 138 06/23/2025 K 4.5 06/23/2025 CL 107 06/23/2025 CO2 20 (L) 06/23/2025 BUN 10 06/23/2025 CREATININE 0.84 06/23/2025 CALCIUM 9.1 06/23/2025 GLU 116 (H) 06/23/2025 Coagulation: Lab Results Component Value Date INR 1.32 (H) 06/23/2025 TROPONIN-T HIGH SENSITIVITY 2HR Collected: 06/23/25 1611 Final result Specimen: Blood, Venous lg-qLjeisnzo-X 2HR 83 High ng/L hs-cTnT 2Hr Delta from Baseline -9 ng/L 06/23/25 1410 TROPONIN-T HIGH SENSITIVITY BASELINE W/ REFLEX Collected: 06/23/25 1328 Final result Specimen: Blood, Venous ko-nGqxznosg-H 92 High ng/L 06/23/25 1358 BASIC METABOLIC PANEL Collected: 06/23/25 1328 Final result Specimen: Blood, Venous Sodium 138 mmol/L Calcium 9.1 mg/dL Potassium 4.5 mmol/L Glucose Lvl 116 High mg/dL Chloride 107 mmol/L BUN 10 mg/dL Total CO2 20 Low mmol/L Creatinine 0.84 mg/dL Anion Gap 11 mmol/L eGFR (CKD-EPIcr 2020) 68 mL/min/1.73 m2 06/23/25 1358 NT PROBNP Collected: 06/23/25 1328 Final result Specimen: Blood, Venous NT Pro-BNP 7,449 High pg/mL 06/23/25 1348 D-DIMER Collected: 06/23/25 1328 Final result Specimen: Blood, Venous D-Dimer 1,389 High ng/mL FEU 06/23/25 1348 PT / INR Collected: 06/23/25 1328 Final result Specimen: Blood, Venous PT 15.3 High second(s) INR 1.32 High (ratio) 06/23/25 1348 PARTIAL THROMBOPLASTIN TIME Collected: 06/23/25 1328 Final result Specimen: Blood, Venous PTT 37.0 High second(s) Radiology: CT ANGIOGRAM PULMONARY W CONTRAST Result Date: 06/23/2025 CT PULMONARY ANGIOGRAM, 06/23/2025 2:57 PM CLINICAL HISTORY: -Short of breath, elevated D-dimer, atrial fibrillation. COMPARISON: None. TECHNIQUE: PE protocol CT angiogram of the chest using Isovue 370IV contrast as recorded in EPIC. 2-D multiplanar reconstructions and 3-D MIP reconstructions reviewed. Dose 1 : CT DLP Total : 109.65 mGycm DLP Spiral Max : 96.21 mGycm Maximum CTDI Vol : 9.53 mGy FINDINGS: Adequate visualization of the pulmonary arteries to the segmental/subsegmental level. No acute pulmonary embolism. No aortic arch aneurysm. No pneumothorax. Small left and mxcer-qy-zjadtcyk right pleural effusions. Emphysema. Opacities dependently in the lower lobes. Impression deformity along the superior endplate of L2 and inferior endplate of T6. Some sclerosis suggesting these are likely remote. Coronary artery calcification: Severe. No acute pulmonary embolism. Bilateral pleural effusions and dependent opacities which may represent atelectasis - Note: Radiology results need to be interpreted within a comprehensive clinical context. If you have questions about the radiology report, please contact the office of the ordering clinician. XR CHEST AP PORTABLE Result Date: 06/23/2025 XR CHEST AP PORTABLE, 06/23/2025 1:41 PM CLINICAL HISTORY: -sob COMPARISON: 06/09/2025. PROCEDURE COMMENTS: AP portable technique. FINDINGS: Support devices: No visible support devices. Heart and mediastinum: Borderline-enlarged likely related to hypoexpansion and portable technique. LUNGS: Patchy bilateral airspace opacities with vascular indistinctness and bilateral pleural effusions. No pneumothorax. Findings suggestive of pulmonary edema with bilateral pleural effusions. - Note: Radiology results need to be interpreted within a comprehensive clinical context. If you have questions about the radiology report, please contact the office of the ordering clinician. EK EKG 12 LEAD Result Date: 06/23/2025 NOTICE: Preliminary tracing available for review; Final Interpretation by physician to follow. 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 : 1940 Requested By: STEPHAN Earl Order Number: [id number] Reading MD: Measurements Intervals [place] Rate: 139 P: 0 TN: 0 QRS: 65 QRSD: 82 T: 26 QT: 286 QTc: 436 Interpretive Statements ATRIAL FIBRILLATION WITH RAPID VENTRICULAR RESPONSE SEPTAL MYOCARDIAL INFARCTION, PROBABLY OLD Assessment & Plan Atrial fibrillation with RVR (HCC) Admit TCU -Cardizem drip -Coreg -Cards eval -Recent Echo reviewed History of pulmonary embolus (PE) No current AC -hx Sub Arachnoid bleed Hypertension associated with diabetes (HCC) Coreg -Recent A1C 5.4 -DM diet but will not follow blood sugars Acute on chronic heart failure with preserved ejection fraction (HCC) Admit as above Lasix -Cards eval -Trend BNP -Follow electrolytes and renal fxn on lasix Hx of subarachnoid hemorrhage // 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 By history No current AC Chest pain, unspecified type // Elevated troponin Trend Troponin Cards to see -Ranexa -Hx of CAD -Coreg Type 2 diabetes mellitus, without long-term current use of insulin (HCC) Recent A1c 5.4 Stage 3a chronic kidney disease (HCC) Stable Anemia in other chronic diseases classified elsewhere Stable Acute pulmonary edema (HCC) Lasix given in ER > Continue q 12 hr -Trest A fib RVR -Recent Echo reviewed -Follow DVT prophylaxis Lovenox Duong Vitale MD 06/23/2025 3:55 PM Part of this note was dictated using voice recognition technology and may include unintended spelling errors. documented in this encounter Procedure Notes * Donnie Esqueda MD - 06/24/2025 3:27 AM EDT DATE OF PROCEDURE: 06/24/2025 NAME: Skyler Bautista : 1940 AGE: 84 y.o. CENTRAL LINE PLACEMENT Central Line Placement Procedure Note Indication: shock ( cardiogenic) Consent: Patient critically ill on the ventilator. Discussed with son verbally; and he agreed Procedure: Timeout was performed. The patient was positioned appropriately and the skin over the L subclavian vein was prepped with chlorhexidine. Local anesthesia was obtained by infiltration using 1% Lidocaine without epinephrine. A large bore needle was used to identify the vein. A guide wire was then inserted into the vein through the needle. A 9.5F introducer sheath was then inserted into the vessel over the guide wire using the Seldinger technique. All ports showed good, free flowing blood return and were flushed with saline solution. The catheter was then securely fastened to the skin with sutures and covered with a sterile dressing. A post procedure X-ray was ordered and is still pending at this time. The patient tolerated the procedure well. Complications: None Estimated blood loss 5ml Donnie Esqueda MD * Donnie Esqueda MD - 06/24/2025 1:09 AM EDT Endotracheal Intubation Procedure Note Indication for endotracheal intubation: respiratory failure Sedation: etomidate Paralytic: succinylcholine Lidocaine: no Atropine: no Equipment: Winn Mac . Et tube size 7.5 Length at the lip:23 Cricoid Pressure: no Number of attempts: 0 ETT location confirmed by by auscultation and ETCO2 monitor. CXR showed the ET tube in appropriate position. documented in this encounter Consult Notes * Antoine Woo PA-C - 06/26/2025 8:30 AM EDTAssociated Order(s): IP CONSULT TO UROLOGY Images from the original note were not included. 06/26/2025 Skyler Bautista 1940 [id number] Reason for Consult: Urinary retention Requesting Physician: Duong Vitale MD History Obtained From: Patient, chart review HISTORY OF PRESENT ILLNESS: The patient is a 84 y.o. female with a PMHx of PAD, CHF, Afib, CKD, DM, admitted on 06/23/2025 to [facility] for AFIB with RVR. She is currently in ICU for AFIB with tachycardia, seizure like activity, acute on chronic HF. Urology has been consulted for Urinary Retention. Patient with elevated PVRs, has been straight cath for 850cc several times since admission. Indwelling garrido placed last night, 06/25/2025, by MOTOR ELECTRICIAN. Of note, the patient was seen by our group earlier this year for urinary retention and refused a garrido. The patient reports that she's had episodes of retention intermittentlyin the past. She did note some bladder pressure with retention. Denies recent pain with urination, GH. Last BM was last night. UA 06/23/25 negative. No recent abdominal/pelvic imaging done. Today, Cr 0.87. Currently, she reports tolerating garrido. Per chart review, she was seen by Urology in 2021 for workup of GH, rUTIs, and UI. She underwentCTU and cysto which was negative for malignancy. She was started on topical estrogen at that time (not currently on her home med list). She is not currently on any OAB medications and none noted on review of home meds. Past Medical History: Diagnosis Date A-fib (HCC) [...] cpap, but is not using. Stroke ([facility]) pt's states around 3 years [...] IR REVAS FEM POP ART 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 01/30/2025 IR REVAS FEM POP ART 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 01/30/2025 Vargas Wolf MD [facility] IR IR [...] DPM; Location: [facility] MAIN OR; Service: Podiatry Medications: Scheduled Meds: acetaminophen 1,000 mg Oral 3 times per day atorvastatin 40 mg Oral Nightly calcium carbonate 1,000 mg Oral Daily cyanocobalamin 1,000 mcg Oral Daily fUROsemide 40 mg Intravenous Daily gabapentin 300 mg Oral Daily Insulin Calculator - FSBS (Correction Only) Intake Input 1 Each MISCELLANEOUS 4 times per day And insulin aspart (NovoLOG) - Correction Factor PATIENT-SPECIFIC 0-40 Units Subcutaneous 4 times per day latanoprost 1 Drop Ophthalmic Nightly levETIRAcetam (KEPPRA) IV (Orderable) 750 mg Intravenous 2 times per day metoprolol 12.5 mg Oral BID mupirocin Nasal BID nortriptyline 10 mg Oral Nightly pantoprazole (PROTONIX) 40 mg Intravenous BID Or pantoprazole 40 mg Oral BID polyethylene glycol 17 g Enteral BID potassium chloride in water 20 mEq Intravenous Once Followed by potassium chloride in water 20 mEq Intravenous Once sodium chloride 0.9% 10 mL Intravenous 3 times per day Continuous Infusions: sodium chloride 0.9 % PRN Meds:.sodium chloride 0.9 %, acetaminophen OR acetaminophen OR acetaminophen, atropine,dextrose, glucagon AND sterile water, ICU Electrolyte Replacement - Calcium, ICU Electrolyte Replacement - Magnesium, ICU Electrolyte Replacement - Phosphate, ICU Electrolyte Replacement - Potassium, melatonin, nitroGLYCERIN, ondansetron OR ondansetron, oxyCODONE, senna, sodium chloride 0.9%, sodium chloride 0.9%, sodium chloride 0.9%, sodium chloride 0.9%, traMADoL Allergies Allergen Reactions Lidocaine Rash Nitrofurantoin Rash Morphine Other (See Comments) Social reports that she quit smoking about 33 years ago. Her smoking use included cigarettes. She has beenexposed to tobacco smoke. She has never used smokeless tobacco. She reports that she does not currently use alcohol. She reports that she does not use drugs. No family history on file. REVIEW OF SYSTEMS: A comprehensive review of systems was negative except for: See HPI, except for the above noted system information in the History of presenting illness. VITALS: Vitals: 06/26/25 0600 06/26/25 0700 06/26/25 0800 06/26/25 0900 BP: 169/73 158/85 155/82 165/77 BP Location: Patient Position: Pulse: 94 97 93 97 Resp: 24 23 (!) 34 18 Temp: 99.3 ??F (37.4 ??C) 99.6 ??F (37.6 ??C) 99.6 ??F (37.6 ??C) 99.5 ??F (37.5 ??C) TempSrc: SpO2: 95% 95% 95% 97% Weight: 122 lb 12.7 oz (55.7 kg) Physical Examination: General appearance - alert, well appearing, and in no distress, oriented to person, place, and timeand well hydrated Ears - hearing grossly normal bilaterally Nose - normal and patent Mouth - mucous membranes moist Chest - breathing comfortably Abdomen - soft, nontender, nondistended Pelvic - garrido in place draining clear yellow urine Back exam - no CVA ttp DATA: CBC: Lab Results Component Value Date WBC 4.6 06/26/2025 RBC 2.48 (L) 06/26/2025 HGB 9.0 (L) 06/26/2025 HCT 27.4 (L) 06/26/2025 MCV 110.5 (H) 06/26/2025 MCHC 32.8 06/26/2025 RDW 19.3 (H) 06/26/2025 PLT 87 (L) 06/26/2025 MPV 12.9 (H) 06/26/2025 BMP: Lab Results Component Value Date NA 138 06/26/2025 K 3.9 06/26/2025 CL 106 06/26/2025 CO2 22 06/26/2025 BUN 13 06/26/2025 CREATININE 0.87 06/26/2025 CALCIUM 8.3 (L) 06/26/2025 GLU 95 06/26/2025 Lab Results Component Value Date SPECGRAV 1.011 06/23/2025 UAPROTEIN Negative 06/23/2025 BLOODU Negative 06/23/2025 NITRITE Negative 06/23/2025 LEUKOCYTESUR Negative 06/23/2025 WBCUA 1 06/23/2025 RBCUA 1 06/23/2025 No results found. 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 Acute of chronic HF - Currently on IV Lasix AFIB with RVR H/o GH and Alexus - Seen at Urology in 2021 for workup of GH, rUTIs, and UI. She underwent CTU andcysto which was negative for malignancy. She was started on topical estrogen at that time (not currently on her home med list). She is not currently on any OAB medications and [facility] Recommend keeping garrido and doing outpatient VT in the office. DO NOT REMOVE GARRIDO before discussing with urology I spoke with Son Edgar and he agrees with outpatient VT in the office. No additional plans, Urology signing off. Please call w/ questions or concerns. Thank you for asking me to see your patient. Antoine Ferraro PA-C 06/26/2025 9:04 AM Cosigned by Suzie Castro MD at 06/26/2025 2:12 PM EDT Associated attestation - Suzie Castro MD - 06/26/2025 2:12 PM EDT Agree with above plan. Garrido to remain in place while in-pt. She will follow up with us as outpt for a voiding trial. Family on board with plan. Call with concerns about garrido. Otherwise will sign off. Suzie Castro MD [facility] * Miryam Guzman APRN - 06/24/2025 2:11 PM EDTAssociated Order(s): IP CONSULT TO VASCULAR SURGERY Consult received for follow up and staple removal Sophie ZAPIEN. She is currently critically ill in ICU, intubated and sedated. Will assess Sophie ZAPIEN stump for staple removal once medically stable/improved. Please call with any additional questions or concerns. Miryam Guzman NP Vascular Surgery Cosigned by Vargas Wolf MD at 06/24/2025 7:23 PM EDT * Rusty Sawyer MD - 06/24/2025 12:52 PM EDTAssociated Order(s): IP CONSULT TO NEUROLOGY Neurology Consult Note Admit date: 06/23/2025 Admitting diagnosis: Atrial fibrillation with RVR ([facility]) [I48.91] Paroxysmal atrial fibrillation (HCC) [I48.0] Today's date: 06/24/2025 Current length of stay: 0 day(s) Impression and Recommendations Skyler Bautista is a 84 y.o. female with a history of Afib, CAD, HF, HTN, HLD, PVD, CKD, DANTE, Stroke whom I am seeing in neurologic consultation at the request of Duong Vitale MD for evaluation of Seizure. Seizure History of Left fontal hemorrhagic contusion Encephalopathy She had a seizure immediately following a possible cardiac arrest in the setting of bradykinesia and hypotension. She has a history of left frontal contusion after a fall while on Warfarin, which likely lowers her threshold for seizure. Her seizure was provoked but with this old lesion it would be reasonable to treat with Keppra. Her mental status is reduced. We should to HCT now and if not improved by tomorrow should to MRI. Her exam does not demonstrate a focal deficit. Recommendations: -HCT now -Start Keppra 750 mg BID Rusty Sawyer MD Neurology 12:52 PM 06/24/25 Thank you for allowing me to participate in the care of Skyler Bautista. Please do no hesitate to contact me with any further questions or concerns. HPI: This is a 84 y.o. female with a history of Afib, CAD, HF, HTN, HLD, PVD, CKD, DANTE, Stroke whomI am seeing in neurologic consultation at the request of Duong Vitale MD for evaluation of Seizure. She presented to the ED on 06/23 for SOB. She was found to be in Afib with RVR. She had hypotension and bradycardia overnight while on Cardizem drip. When being evaluated for the hypotension she had a period of unresponsiveness. Pulse may have been lost, PEA on monitor. She had a seizure in the ICU overnight. She received 2 mg of Ativan. She was intubated. In January 2024 she had a fall while on Warfarin. She had a left frontotemporal hemorrhagic contusionand small SDH. 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 Current Outpatient Medications on File Prior to Encounter Medication Sig Dispense Refill acetaminophen (TYLENOL) 500 mg Oral Tablet Take 1,000 mg by mouth every 6 hours. ALPRAZolam (XANAX) 0.5 mg Oral Tablet Take 0.5 mg by mouth nightly. give one tablet by mouth one time a day for anxiety disorder, unspecified Indications: anxious atorvastatin (LIPITOR) 40 mg Oral Tablet Take 40 mg by mouth nightly. Calcium Carbonate (ANTACID ULTRA STRENGTH) 400 mg calcium (1,000 mg) Oral Tablet, Chewable Take 1,000 mg by mouth daily. carvediloL (COREG) 25 mg Oral Tablet Take 1 Tablet by mouth 2 times daily (with meals). 60 Tablet 0 cyanocobalamin 1,000 mcg Oral Tablet Take 1,000 mcg by mouth daily. dorzolamide-timoloL (COSOPT) 22.3-6.8 mg/mL Opht Drops Place 1 Drop into both eyes nightly. instill1 drop in both eyes at bedtime for glaucoma ertapenem sodium (ERTAPENEM INJ) Inject 1 g into the muscle daily. Ertapenem sodium injection solution reconstituted 1gm, inject 1 gm intramuscularly one time a day for UTI for seven days fUROsemide (LASIX) 40 mg Oral Tablet Take 1 Tablet by mouth daily as needed for Other (edema, SOB).30 Tablet 0 gabapentin (NEURONTIN) 300 mg Oral Capsule Take 300 mg by mouth daily. Give 1 capsule by mouth one time a day for POLYNEUROPATHY latanoprost (XALATAN) 0.005 % Opht Drops Apply 1 Drop to eye nightly. 2.5 mL 0 lidocaine (ASPERCREME) 4 % Top Adhesive Patch, Medicated Place 1 Patch onto the skin daily. 15 Patch 0 nalOXone (NARCAN) 4 mg/actuation Nasl [place], Non-Aerosol 0.1 mL by Nasal route as needed for OpioidReversal. [place] the contents of one device (0.1mL) into one nostril upon signs of opioid overdose. Call 911. May repeat dose in other nostril if no response within 2-3 minutes. 1 Each 0 nortriptyline (PAMELOR) 10 mg Oral Capsule Take 1 Capsule by mouth nightly. 15 Capsule 0 oxyCODONE (ROXICODONE) 5 mg Oral Tablet Take 1-2 Tablets by mouth every 4 hours as needed for AcutePain (R52). 12 Tablet 0 pantoprazole (PROTONIX) 40 mg Oral Tablet, Delayed Release (E.C.) Take 1 Tablet by mouth 2 times daily. 60 Tablet 0 polyethylene glycol (GLYCOLAX, MIRALAX) 17 gram Oral Powder in Packet Take 17 g by mouth daily. ranolazine (RANEXA) 500 mg Oral Tablet Sustained Release 12 hr Take 1,000 mg by mouth daily. Allergies Allergen Reactions Lidocaine Rash Nitrofurantoin Rash Morphine Other (See Comments) Physical Examination: Patient Vitals for the past 24 hrs: BP Temp Temp src Pulse Resp SpO2 Weight 06/24/25 1200 128/75 -- -- 72 17 98 % -- 06/24/25 1125 -- -- -- 69 17 98 % -- 06/24/25 1100 125/62 -- -- 59 16 98 % -- 06/24/25 1000 90/50 -- -- 56 16 97 % -- 06/24/25 0900 111/56 -- -- 61 14 99 % -- 06/24/25 0845 97/46 -- -- 56 16 99 % -- 06/24/25 0800 99/45 -- -- 56 16 99 % -- 06/24/25 0742 103/50 -- -- 58 16 99 % -- 06/24/25 0700 93/49 -- -- 55 16 100 % -- 06/24/25 0600 118/60 -- -- 64 15 100 % -- 06/24/25 0556 -- -- -- -- -- -- 122 lb 12.7 oz (55.7 kg) 06/24/25 0500 108/61 97.5 ??F (36.4 ??C) Oral 62 20 99 % -- 06/24/25 0458 -- -- -- 60 20 100 % -- 06/24/25 0400 123/62 -- -- 64 20 100 % -- 06/24/25 0300 123/61 -- -- 67 21 99 % -- 06/24/25 0200 101/50 -- -- 64 20 100 % -- 06/24/25 0100 122/69 97.5 ??F (36.4 ??C) Oral 50 20 98 % -- 06/24/255 -- -- -- 50 20 100 % -- 06/24/25 0044 -- -- -- -- -- -- 126 lb 1.7 oz (57.2 kg) 06/24/25 0042 96/41 -- -- (!) 44 -- 98 % -- 06/24/25 0040 94/51 -- -- (!) 44 -- 96 % -- 06/24/25 0034 92/65 -- -- -- -- 100 % -- 06/24/25 0024 -- -- -- (!) 24 -- -- -- 06/24/25 0008 (!) 65/31 -- -- (!) 28 -- -- -- 06/24/25 0005 (!) 61/47 -- -- (!) 36 10 93 % -- 06/23/25 2300 (!) 82/34 -- -- 78 -- 95 % -- 06/23/25 2108 100/44 97.1 ??F (36.2 ??C) Oral 53 16 95 % -- 06/23/25 1710 -- -- -- 68 -- -- -- 06/23/25 1646 135/68 97.2 ??F (36.2 ??C) Axillary 54 14 91 % -- 06/23/25 1600 -- -- -- 82 14 92 % -- 06/23/25 1530 -- -- -- 83 23 99 % -- 06/23/25 1525 140/78 -- -- 79 14 99 % -- 06/23/25 1430 -- -- -- 77 14 96 % -- 06/23/25 1400 -- -- -- 74 14 95 % -- 06/23/25 1355 121/70 -- -- 86 24 93 % -- 06/23/25 1330 (!) 169/152 -- -- 129 25 97 % -- 06/23/25 1316 (!) 163/101 -- -- 121 16 98 % -- General Exam: Gen: Well developed, well nourished intubated womn. Neck: Supple Pulm: On vent. CV: Normal rate and rhythm. MSK: No bruising, swelling, erythema. Sedation: none Neuro Exam: Mental Status: Awake, eyes are open, regards me when I speak to her but requires frequent stimulation. Does not follow any command. Cranial Reflexes: Pupils, Eye Movements: pupils react to light but with evidence of lens surgery that produces mild anisocoria. She crosses midline to regard me. 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 PULMONARY / CRITICAL CARE CONSULT NOTE Spencer Luna APRN 06/24/2025 Patient: Skyler Bautista 84 y.o. female Date of Admission: 06/23/2025 Admitting Provider: Duong Vitale MD CC: Chief Complaint Patient presents with Atrial Fibrillation a fib rvr from [employer]. they report HR of 180, per squad HR 103. Skyler Bautista is a(n)84 y.o. female is being evaluated following ICU admission for acute hypoxic respiratory failure, seizures and bradycardia. HPI: Ms. Bautista is an 84 year old female with a PMHx significant for A-fib, PE, HFpEF, subarachnoid hemorrhage, TBI, T2DM, CKD, PVD, and recent left AKA. [facility] recent [facility] for AKA with complaints of shortness of breath for 4 days. HR was elevated to the 180's and she was brought to the ER. In the ER she was found to be in Afib with RVR. She was bolused with Cardizem and started on Cardizem gtt. She was also given Lasix IV. Work up in the ER included CTA pulmonary: No acute pulmonary embolism. Bilateral pleural effusionsand dependent opacities which may represent atelectasis. CXR: Findings suggestive of pulmonary edema with bilateral pleural effusions. EKG was consistent with Afib with RVR and rate in the 130's. Trops: 92 -> 83, K: 4.5, creatinine: 0.84. She was admitted to TCU for further management. She was continued on Cardizem gtt and was started on Coreg at night. Overnight on TCU a rapid was called due to bradycardia and hypotension. Reportedly with HR in the 20's. She was given atropine 1 mg x3. EKG showed Afib with slow ventricular response. There is question if she lost a pulse, but it was able to be palpated later. She seized on arrival to the ICU and was given 2 mg Ativan IV and intubated. She was started on Epinephrine gtt. She was given 5 mg Glucagon and 2 g calcium gluconate. This morning she is slightly responsive and opening eyes to voice. Not following commands. Epi gtt is off and she is coming off Propofol and Fentanyl gtt. PMH: Past Medical History: Diagnosis Date A-fib [...] years ago. Urinary incontinence Urinary tract infection PSH: Past Surgical History: Procedure Laterality Date ABDOMEN SURGERY ABOVE KNEE AMPUTATION Left 05/24/2025 Left Above Knee Amputation; Surgeon: Vargas Wolf MD; Location: [facility]IN OR; Service: Vascular CARDIAC CATHETERIZATION CARDIAC [...] IR REVAS FEM POP ART 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 01/30/2025 IR REVAS FEM POP ART 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 01/30/2025 Vargas Wolf MD [facility] IR IR [...] DPM; Location: [facility]; Service: Podiatry FH: No family history on file. SH: Social History Socioeconomic History Marital status: Spouse name: Not on file Number of children: Not on file Years of education: Not on file Highest education level: Not on file Occupational History Not on file Tobacco Use Smoking status: Former Current packs/day: 0.00 Types: Cigarettes Quit date: 1991 Years since quittin.7 Passive exposure: Past Smokeless tobacco: Never Vaping Use Vaping status: Never Used Substance and Sexual Activity Alcohol use: Not Currently Drug use: Never Sexual activity: Not Currently Partners: Male Other Topics Concern Not on file Social History Narrative Not on file Social Drivers of Health Financial Resource Strain: Low Risk (06/23/2025) Overall Financial Resource Strain (CARDIA) Difficulty of Paying Living Expenses: Not very hard Food Insecurity: No Food Insecurity (06/23/2025) Hunger Vital Sign Worried About Running Out of Food in the Last Year: Never true Ran Out of Food in the Last Year: Never true Transportation Needs: No Transportation Needs (06/23/2025) [facility] IP Transportation In the past 12 months, has lack of reliable transportation kept you from medical appointments, meetings, work or from getting things needed for daily living?: No Physical Activity: Inactive (06/23/2025) Exercise Vital Sign Days of Exercise per Week: 0 days Minutes of Exercise per Session: 0 min Stress: No Stress Concern Present (06/23/2025) [employer] - Occupational Stress Questionnaire Feeling of Stress : Not at all Social Connections: Low Risk (10/30/2023) Received from [employer] ([place], [place], [place], [place]) Family and Community Support Help with Day to Day Activities: Not on file Feeling Lonely or Isolated: Not on file Intimate Partner Violence: Not At Risk (08/06/2024) Received from Healthcare Humiliation, Afraid, Rape, and Kick questionnaire Fear of Current or Ex-Partner: No Emotionally Abused: No Physically Abused: No Sexually Abused: No Housing Stability: Low Risk (08/06/2024) Received from [facility] Housing Stability Vital Sign Unable to Pay for Housing in the Last Year: No Number of Places Lived in the Last Year: 1 Unstable Housing in the Last Year: No Allergies: Allergies Allergen Reactions Lidocaine Rash Nitrofurantoin Rash Morphine Other (See Comments) Medications: fentaNYL (SUBLIMAZE) infusion orderable 1 mcg/kg/hr (06/24/25700) propofol 10 mcg/kg/min (06/24/25700) acetaminophen 1,000 mg Oral 3 times per day atorvastatin 40 mg Oral Nightly calcium carbonate 1,000 mg Oral Daily ophthalmic gel (artificial tears) 1 Drop Both Eyes 6 times per day cyanocobalamin 1,000 mcg Oral Daily [START ON 06/25/2025] fUROsemide 40 mg Intravenous Daily Insulin Calculator (CONTINUOUS PICKLING LINE PICKLER) - FSBS (Correction Only) Intake Input 1 Each MISCELLANEOUS 6 times per day And insulin aspart (NovoLOG) - Correction Factor PATIENT-SPECIFIC 0-40 Units Subcutaneous 6 times per day latanoprost 1 Drop Ophthalmic Nightly LORazepam mupirocin Nasal BID nortriptyline 10 mg Oral Nightly pantoprazole (PROTONIX) 40 mg Intravenous BID Or pantoprazole 40 mg Oral BID polyethylene glycol 17 g Enteral BID ranolazine 1,000 mg Oral Daily sodium chloride 0.9% 10 mL Intravenous 3 times per day dextrose, fentaNYL, glucagon AND sterile water, LORazepam, melatonin, ondansetron OR ondansetron, senna, sodium chloride 0.9%, sodium chloride 0.9%, sodium chloride 0.9%, sodium chloride 0.9% Medications Prior to Admission Medication Sig Dispense Refill Last Dose/Taking acetaminophen (TYLENOL) 500 mg Oral Tablet Take 1,000 mg by mouth every 6 hours. Taking ALPRAZolam (XANAX) 0.5 mg Oral Tablet Take 0.5 mg by mouth nightly. give one tablet by mouth one time a day for anxiety disorder, unspecified Indications: anxious 06/22/2025 Bedtime atorvastatin (LIPITOR) 40 mg Oral Tablet Take 40 mg by mouth nightly. 06/22/2025 Calcium Carbonate (ANTACID ULTRA STRENGTH) 400 mg calcium (1,000 mg) Oral Tablet, Chewable Take 1,000 mg by mouth daily. 06/22/2025 carvediloL (COREG) 25 mg Oral Tablet Take 1 Tablet by mouth 2 times daily (with meals). 60 Tablet 06/22/2025 cyanocobalamin 1,000 mcg Oral Tablet Take 1,000 mcg by mouth daily. 06/22/2025 dorzolamide-timoloL (COSOPT) 22.3-6.8 mg/mL Opht Drops Place 1 Drop into both eyes nightly. instill1 drop in both eyes at bedtime for glaucoma 06/22/2025 Bedtime ertapenem sodium (ERTAPENEM INJ) Inject 1 g into the muscle daily. Ertapenem sodium injection solution reconstituted 1gm, inject 1 gm intramuscularly one time a day for UTI for seven days 06/22/2025 fUROsemide (LASIX) 40 mg Oral Tablet Take 1 Tablet by mouth daily as needed for Other (edema, SOB).30 Tablet 0 06/22/2025 gabapentin (NEURONTIN) 300 mg Oral Capsule Take 300 mg by mouth daily. Give 1 capsule by mouth one time a day for POLYNEUROPATHY 06/22/2025 latanoprost (XALATAN) 0.005 % Opht Drops Apply 1 Drop to eye nightly. 2.5 mL 0 Taking lidocaine (ASPERCREME) 4 % Top Adhesive Patch, Medicated Place 1 Patch onto the skin daily. 15 Patch 0 Taking nalOXone (NARCAN) 4 mg/actuation Nasl [place], Non-Aerosol 0.1 mL by Nasal route as needed for OpioidReversal. [place] the contents of one device (0.1mL) into one nostril upon signs of opioid overdose. Call 911. May repeat dose in other nostril if no response within 2-3 minutes. 1 Each 0 Taking nortriptyline (PAMELOR) 10 mg Oral Capsule Take 1 Capsule by mouth nightly. 15 Capsule 0 Taking oxyCODONE (ROXICODONE) 5 mg Oral Tablet Take 1-2 Tablets by mouth every 4 hours as needed for AcutePain (R52). 12 Tablet 0 Taking pantoprazole (PROTONIX) 40 mg Oral Tablet, Delayed Release (E.C.) Take 1 Tablet by mouth 2 times daily. 60 Tablet 0 06/22/2025 polyethylene glycol (GLYCOLAX, MIRALAX) 17 gram Oral Powder in Packet Take 17 g by mouth daily. 06/22/2025 ranolazine (RANEXA) 500 mg Oral Tablet Sustained Release 12 hr Take 1,000 mg by mouth daily. 06/22/2025 Morning ROS Unable to be assessed due to patient's current status. PHYSICAL EXAMINATION BP 125/62 Pulse 69 Temp 97.5 ??F (36.4 ??C) (Oral) Resp 17 Wt 122 lb 12.7 oz (55.7 kg) SpO2 98% BMI 22.46 kg/m?? Temp (24hrs), Av.3 ??F (36.3 ??C), Min:97.1 ??F (36.2 ??C), Max:97.5 ??F (36.4 ??C) Date 06/24/25 07 - 06/25/25 0659 Shift 2784-3482 8700-9414 5825-4347 24 Hour Total INTAKE I.V.(mL/kg/hr) 4.5 4.5 IV Piggyback 66.6 66.6 Shift Total(mL/kg) 71.1(1.3) 71.1(1.3) OUTPUT Shift Total(mL/kg) Weight (kg) 55.7 55.7 55.7 55.7 Body mass index is 22.46 kg/m??. Constitutional: Appears acutely ill. No distress. HEENT: Mouth/Throat: ETT Oropharynx is clear and moist. Eyes: Pupils are equal, round, and reactiveto light. Cardiovascular: Bradycardic, irregular rhythm and intact distal pulses. No murmur heard. Pulmonary/Chest: Effort normal. No respiratory distress. No wheezes. GI/Abdominal: Soft. Bowel sounds active, no distension or tenderness Genitourinary: Voids Extremities: No edema, LLE amputation without erythema or drainage Neurological: Intubated/Sedated, RASS -1, GCS: 9. Following commands BUE. Skin: Limited due to patient not being fully undressed. Skin is warm. No rash noted on exposed areas of skin. MECHANICAL VENTILATION (last filed) Vent Mode: A/C Set Rate: 16 br/min Vt Set: 400 PEEP: 8 cmH20 Peak Airway Pressure: 20 cmH20 Plateau Pressure (Ppl): 13 cmH20 Artificial Airway Size: 7.5 ETT SUPPLEMENTAL O2 & NIV (last filed) O2 Device: Ventilator O2 Flow Rate (L/min): 2 lpm FiO2 (%): 35 % Labs: ABG Recent Labs 06/24/25 0225 06/24/25 0526 PH 7.38 7.45 PCO2 38 31* PO2 56* 86 O2SAT 86.7* 97.7 INSPIREDO2 70 50 Electrolytes Lab Results Component Value Date NA 136 06/24/2025 K 4.1 06/24/2025 CL 103 06/24/2025 CO2 21 (L) 06/24/2025 BUN 16 06/24/2025 CREATININE 1.17 06/24/2025 Lab Results Component Value Date GLU 229 (H) 06/24/2025 CBC Lab Results Component Value Date WBC 4.5 06/24/2025 HGB 8.3 (L) 06/24/2025 HCT 25.0 (L) 06/24/2025 PLT 83 (L) 06/24/2025 INR 1.32 (H) 06/23/2025 PTT 37.0 (H) 06/23/2025 Other Labs Recent Labs 06/23/25 1328 06/24/25 0510 BNP 7,449* 7,992* ALT -- 17 AST -- 31 ALKPHOS -- 149* PROT -- 6.5 Antiobiotics (day): N/A Radiology: EK EKG 12 LEAD Result Date: 06/24/2025 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: Reza : 1940 Requested By: DONNIE ESQUEDA Order Number: [id number] Reading MD: Sukh Garner Measurements Intervals [place] Rate: 54 P: 0 TN: 0 QRS: 39 QRSD: 89 T: 0 QT: 462 QTc: 438 Interpretive Statements ATRIAL FIBRILLATION WITH SLOW VENTRICULAR RESPONSE WITH ABERRANT CONDUCTION OR VENTRICULAR PREMATURE COMPLEXES LOW QRS VOLTAGE IN EXTREMITY LEADS [QRS DEFLECTION < 0.5 mV IN LIMB LEADS] NONSPECIFIC ST/T WAVE ABNORMALITY RATE HAS MARKEDLY DECREASED SINCE PRIOR Electronically Signed On 06-24-2025 08:09:24 EDT by Sukh Garner XR CHEST AP PORTABLE Result Date: 06/24/2025 CLINICAL HISTORY: -CVC left IJ placement. COMPARISON: Earlier today. TECHNIQUE: XR CHEST AP PORTABLE on 06/24/2025 4:17 AM. FINDINGS: The tip and sidehole of the enteric tube are in the gastric body. The tip of the left jugular central line projects over the expected region of the lower SVC. There isno pneumothorax or additional change. Positioning of the lines and tubes as described without pneumothorax or change from earlier today Note: Radiology results need to be interpreted within a comprehensive clinical context. If you have questions about the radiology report, please contact the office of the ordering clinician. XR CHEST AP PORTABLE Result Date: 06/24/2025 CLINICAL HISTORY: -confirm ET tube placement. COMPARISON: Earlier today. TECHNIQUE: XR CHEST AP PORTABLE on 06/24/2025 12:59 AM. FINDINGS: The tip of the endotracheal tube is 4.8 cm above the nancy. The enteric tube is coiled in the upper esophagus and should be removed and replaced. There is no additional change. 1. Positioning of the endotracheal tube as described. 2. Malpositioned enteric tube which should beremoved and replaced Note: Radiology results need to be interpreted within a comprehensive clinicalcontext. If you have questions about the radiology report, please contact the office of the ordering clinician. XR CHEST AP PORTABLE Result Date: 06/24/2025 CLINICAL HISTORY: -pulmonary edema. COMPARISON: Yesterday. TECHNIQUE: XR CHEST AP PORTABLE on 06/24/2025 12:26 AM. FINDINGS: Pulmonary edema is worsening and there are enlarging pleural effusions without a pneumothorax. There is atelectasis at the lung bases. The heart is enlarged. Worsening pulmonary edema with enlarging pleural effusions Note: Radiology results need to be interpreted within a comprehensive clinical context. If you have questions about the radiology report, please contact the office of the ordering clinician. 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 COMPARISON: None. TECHNIQUE: PE protocol CT angiogram of the chest using Isovue 370IV contrast as recorded in EPIC. 2-D multiplanar reconstructions and 3-D MIP reconstructions reviewed. Dose 1 : CT DLP Total : 109.65 mGycm DLP Spiral Max : 96.21 mGycm Maximum CTDI Vol : 9.53 mGy FINDINGS: Adequate visualization of the pulmonary arteries to the segmental/subsegmental level. No acute pulmonary embolism. No aortic arch aneurysm. No pneumothorax. Small left and [id number] right pleural effusions. Emphysema. Opacities dependently in the lower lobes. Impression deformity along the superior endplate of L2 and inferior endplate of T6. Some sclerosis suggesting these are likely remote. Coronary artery calcification: Severe. No acute pulmonary embolism. Bilateral pleural effusions and dependent opacities which may represent atelectasis - Note: Radiology results need to be interpreted within a comprehensive clinical context. If you have questions about the radiology report, please contact the office of the ordering clinician. XR CHEST AP PORTABLE Result Date: 06/23/2025 XR CHEST AP PORTABLE, 06/23/2025 1:41 PM CLINICAL HISTORY: -sob COMPARISON: 06/09/2025. PROCEDURE COMMENTS: AP portable technique. FINDINGS: Support devices: No visible support devices. Heart and mediastinum: Borderline-enlarged likely related to hypoexpansion and portable technique. LUNGS: Patchy bilateral airspace opacities with vascular indistinctness and bilateral pleural effusions. No pneumothorax. Findings suggestive of pulmonary edema with bilateral pleural effusions. - Note: Radiology results need to be interpreted within a comprehensive clinical context. If you have questions about the radiology report, please contact the office of the ordering clinician. 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 HOB > 30 degrees, lung protective vent settings. Titrate FiO2 >/= 90%. Vent bundle/sedation ordered. Turn off Fentanyl and Propofol to assess mental status. Goal RASS 0,-1 Will hold off on SBT today Ceribell without seizure burden overnight. Neurology consulted. Will await their input for CT head vs MRI. Coreg held and Cardizem stopped. Cardiology consulted. Epi gtt off and HR improved now. Hypotension likely 2/2 sedation. Goal MAP >/= 65. Plan for Levophed if needed for MAP goal. Monitor I/O. Bladder scan Q4H. Hold AC due to history of subarachnoid hemorrhage. Goal blood glucose 140-180 mg/dL. Q4H CCI Monitor and replace electrolytes per ICU protocol. DVT prophylaxis: SCD's GI prophylaxis: Protonix CODE status: DNR Limited HAM[employer] SUPERVISOR critical care time: 17 minutes Spencer Luna APRN Cosigned by Randolph Cervantes MD at 06/24/2025 3:18 PM EDT Associated attestation - Randolph Cervantes MD - 06/24/2025 3:18 PM EDT Addendum: I saw the patient independently and obtained history, ROS, did a full physical exam and reviewed all the pertinent labs and imaging. I agree with the below findings and assessment, and discussed the plan with the MIME ARTIST. Please see my note below for additional input. S Vitals as above Exam: NGT+ Intubated, sedated but opens eyes Lungs: clear Seizure activity AFib with RVR and bradycardia Resp arrest? (Intubated) CKD HFpEF Plan: Reviewed vent settings, continue Reduce sedation to assess neuro status but no plans for SBTs today Neurology and Cardiology consulted Echocardiogram IV lasix daily D/W RN and RT D/w the son at the bedside Additional CCM time: 22 min Randolph Cervantes Pulmonary and Critical Care Medicine * GarnerSukh gilman DO [place] - 06/24/2025 10:18 AM EDTAssociated Order(s): IP CONSULT TO CARDIOLOGY Heart & Vascular Consult Note PATIENT: Skyler Bautista 0 PCP: No Pcp, Per Patient I would like to thank Duong Vitale MD for requesting me to see Skyler Bautista for cardiac consultation for bradycardia. History provided by: EMR, son History limited by: intubated and sedated History of Present Illness: Skyler Bautista is a 84 y.o. female with a past medical history included but not limited to afib, PE,HFpEF, subarachnoid hemorrhage, TBI, T2DM, CKD, PVD, recent left AKA who was admitted on 06/23* forshortness of breath. 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 In the ED she was noted to be in afib with RVR. Started on diltiazem bolus and gtt. CPTA negative for PE but demonstrated bilateral pleural effusions and dependent opacities which may represent atelectasis. Received IV diuresis. She was admitted to TCU for further management. RR called due to bradycardia and hypotension. Heart rate as low as 20s and she received atropine.EKG afib with SVR. Possible loss of pulse. Some concern for seizure activity. She was intubated andbriefly required dopamine and epi gtt. EKG ATRIAL FIBRILLATION WITH SLOW VENTRICULAR RESPONSE WITH ABERRANT CONDUCTION OR VENTRICULAR PREMATURE COMPLEXES LOW QRS VOLTAGE IN EXTREMITY LEADS [QRS DEFLECTION < 0.5 mV IN LIMB LEADS] NONSPECIFIC ST/T WAVE ABNORMALITY RATE HAS MARKEDLY DECREASED SINCE PRIOR Troponin: 92, 83 BNP: 7449 --> 7992 Echocardiogram: 05/27/2025 Conclusions * Left ventricular chamber dimension is [...] regurgitation. * There is trivial pericardial effusion. Stress: 01/11/2025 Conclusions * No significant reversible perfusion defect. * Normal left ventricular size. * Post stress left ventricular ejection fraction is normal, 63 %. * Abnormal septal motion likely due to history of CABG. * Transient Ischemic Dilation is normal. Family History- No family history on file. Social History- Social History Tobacco Use Smoking status: Former Current packs/day: 0.00 Types: Cigarettes Quit date: 1991 Years since quittin.7 Passive exposure: Past Smokeless tobacco: Never Substance Use Topics Alcohol use: Not Currently Review Of Systems: Review of Systems Unable to perform ROS: Intubated Past Medical History Past Medical History: Diagnosis Date A-fib [...] years ago. 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 03/23/24 Taking Provider, Historical ALPRAZolam (XANAX) 0.5 mg Oral Tablet Take 0.5 mg by mouth nightly. give one tablet by mouth one time a day for anxiety disorder, unspecified Indications: anxious 06/22/2025 Bedtime Provider, Historical atorvastatin (LIPITOR) 40 mg Oral Tablet Take 40 mg by mouth nightly. 06/22/2025 Provider, Historical Calcium Carbonate (ANTACID ULTRA STRENGTH) 400 mg calcium (1,000 mg) Oral Tablet, Chewable Take 1,000 mg by mouth daily. 03/23/24 06/22/2025 Provider, Historical carvediloL (COREG) 25 mg Oral Tablet Take 1 Tablet by mouth 2 times daily (with meals). 06/10/25 06/22/2025 Trino Montiel MD cyanocobalamin 1,000 mcg Oral Tablet Take 1,000 mcg by mouth daily. 06/22/2025 Provider, Historical dorzolamide-timoloL (COSOPT) 22.3-6.8 mg/mL Opht Drops Place 1 Drop into both eyes nightly. instill1 drop in both eyes at bedtime for glaucoma 06/22/2025 Bedtime Provider, Historical ertapenem sodium (ERTAPENEM INJ) Inject 1 g into the muscle daily. Ertapenem sodium injection solution reconstituted 1gm, inject 1 gm intramuscularly one time a day for UTI for seven days 06/18/25 06/25/25 06/22/2025 Provider, Historical fUROsemide (LASIX) 40 mg Oral Tablet Take 1 Tablet by mouth daily as needed for Other (edema, SOB).06/10/25 06/22/2025 Trino Montiel MD gabapentin (NEURONTIN) 300 mg Oral Capsule Take 300 mg by mouth daily. Give 1 capsule by mouth one time a day for POLYNEUROPATHY 06/11/25 06/22/2025 Provider, Historical latanoprost (XALATAN) 0.005 % Opht Drops Apply 1 Drop to eye nightly. 06/10/25 Taking Trino Montiel MD lidocaine (ASPERCREME) 4 % Top Adhesive Patch, Medicated Place 1 Patch onto the skin daily. 06/11/25Taking Trino Montiel MD nalOXone (NARCAN) 4 mg/actuation Nasl [place], Non-Aerosol 0.1 mL by Nasal route as needed for OpioidReversal. [place] the contents of one device (0.1mL) into one nostril upon signs of opioid overdose. Call 911. May repeat dose in other nostril if no response within 2-3 minutes. 02/04/25 Taking Flaco Caban MD nortriptyline (PAMELOR) 10 mg Oral Capsule Take 1 Capsule by mouth nightly. 06/10/25 Taking Trino Montiel MD oxyCODONE (ROXICODONE) 5 mg Oral Tablet Take 1-2 Tablets by mouth every 4 hours as needed for AcutePain (R52). 06/10/25 Taking Trino Montiel MD pantoprazole (PROTONIX) 40 mg Oral Tablet, Delayed Release (E.C.) Take 1 Tablet by mouth 2 times daily. 06/10/25 06/22/2025 Trino Montiel MD polyethylene glycol (GLYCOLAX, MIRALAX) 17 gram Oral Powder in Packet Take 17 g by mouth daily. 01/27/24 06/22/2025 Provider, Historical ranolazine (RANEXA) 500 mg Oral Tablet Sustained Release 12 hr Take 1,000 mg by mouth daily. 12/25/18 06/22/2025 Morning Provider, Historical Inpatient Medications: acetaminophen 1,000 mg Oral 3 times per day atorvastatin 40 mg Oral Nightly calcium carbonate 1,000 mg Oral Daily ophthalmic gel (artificial tears) 1 Drop Both Eyes 6 times per day cyanocobalamin 1,000 mcg Oral Daily fUROsemide 40 mg Intravenous BID Diuretic Insulin Calculator (CONTINUOUS PICKLING LINE PICKLER) - FSBS (Correction Only) Intake Input 1 Each MISCELLANEOUS 6 times per day And insulin aspart (NovoLOG) - Correction Factor PATIENT-SPECIFIC 0-40 Units Subcutaneous 6 times per day latanoprost 1 Drop Ophthalmic Nightly LORazepam mupirocin Nasal BID nortriptyline 10 mg Oral Nightly pantoprazole (PROTONIX) 40 mg Intravenous BID Or pantoprazole 40 mg Oral BID polyethylene glycol 17 g Enteral BID ranolazine 1,000 mg Oral Daily sodium chloride 0.9% 10 mL Intravenous 3 times per day fentaNYL (SUBLIMAZE) infusion orderable 1 mcg/kg/hr (06/24/25 07) propofol 10 mcg/kg/min (06/24/25 07) Past Surgical History Past Surgical History: Procedure Laterality Date ABDOMEN [...] IR REVAS FEM POP ART 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 01/30/2025 IR REVAS FEM POP ART 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 01/30/2025 Vargas Wolf MD [facility] IR IR [...] DPM; Location: [facility] MAIN OR; Service: Podiatry Allergy Allergies Allergen Reactions Lidocaine Rash Nitrofurantoin Rash Morphine Other (See Comments) Patient Active Problem List Diagnosis Coronary arteriosclerosis in [place] artery // Hx of CABG Closed nondisplaced intertrochanteric fracture of right femur with routine healing Fall History of pulmonary embolus (PE) Mixed hyperlipidemia Paroxysmal atrial fibrillation (HCC) Hypertension associated with diabetes (HCC) Acute on chronic heart failure with preserved ejection fraction (HCC) Hx of CABG Hx of subarachnoid hemorrhage // 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 Hx of subdural hemorrhage Macrocytosis Debility Hyperkalemia Gastroesophageal reflux disease without esophagitis Mood disorder Primary open angle glaucoma (POAG) of both eyes, severe stage Chest pain, unspecified type // Elevated troponin Great toe pain, left Left leg pain PAD (peripheral artery disease) Elevated troponin Shortness of breath Preoperative cardiovascular examination Carotid stenosis, symptomatic w/o infarct, bilateral Cervical disc disease Cervical spondylosis without myelopathy Diverticulosis Emphysema lung (HCC) Focal hemorrhagic contusion of cerebrum (HCC) Degenerative arthritis Irritable bowel syndrome DANTE (obstructive sleep apnea) Peripheral neuropathy Secondary open-angle glaucoma of right eye, severe stage Splenic lesion Steatosis of liver Temporal arteritis (HCC) Thrombocytopenia Type 2 diabetes mellitus, without long-term current use of insulin (HCC) Stage 3a chronic kidney disease (HCC) Hyponatremia Anemia in other chronic diseases classified elsewhere Constipation Cellulitis and abscess of toe of left foot Exostosis of toe Atherosclerosis of [place] artery of extremity Abscess of toe of left foot Osteomyelitis of great toe (HCC) PVD (peripheral vascular disease) Chest pain Critical limb ischemia of left lower extremity (HCC) Left foot pain Gangrene due to arterial insufficiency (HCC) Gangrene (HCC) 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) Complication of foot amputation stump (HCC) Diabetic foot infection (HCC) S/P transmetatarsal amputation of foot, left (HCC) Wound dehiscence Palliative care by specialist Goals of care, counseling/discussion Pancytopenia (HCC) Acute respiratory failure with hypoxemia (HCC) Acute pulmonary edema (HCC) Hypotension Metabolic encephalopathy Acute cystitis without hematuria Atrial fibrillation with RVR (HCC) Seizure (HCC) Respiratory arrest (HCC) Atrial fibrillation with slow ventricular response (HCC) BP 90/50 Pulse 56 Temp 97.5 ??F (36.4 ??C) (Oral) Resp 16 Wt 122 lb 12.7 oz (55.7 kg) SpO2 97% BMI 22.46 kg/m?? I/O 24 hours: Intake/Output Summary (Last 24 hours) at 06/24/2025 1018 Last data filed at 06/24/2025 0701 Gross per 24 hour Intake 602.16 ml Output 1250 ml Net -647.84 ml Diagnostic tests The most recent cardiovascular imaging studies available in [facility] EMR were reviewed at time of consultation Physical Exam: Physical Exam Constitutional: Appearance: She is ill-appearing. Interventions: She is sedated and intubated. Cardiovascular: Rate and Rhythm: Normal rate. Pulmonary: Effort: Pulmonary effort is normal. She is intubated. Abdominal: Palpations: Abdomen is soft. Musculoskeletal: Right lower leg: No edema. Left Lower Extremity: Left leg is amputated above knee. Skin: Capillary Refill: Capillary refill takes less than 2 seconds. Telemetry: AF Assessment: Active Hospital Problems Diagnosis *Atrial fibrillation with RVR (HCC) Seizure (HCC) Respiratory arrest (HCC) Atrial fibrillation with slow ventricular response (HCC) Acute pulmonary edema (HCC) Anemia in other chronic diseases classified elsewhere Stage 3a chronic kidney disease (HCC) Chest pain, unspecified type // Elevated troponin Acute on chronic heart failure with preserved ejection fraction (HCC) Hx of subarachnoid hemorrhage // 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 History of pulmonary embolus (PE) Paroxysmal atrial fibrillation (HCC) Type 2 diabetes mellitus, without long-term current use of insulin (HCC) Hypertension associated with diabetes (HCC) Atrial Fibrillation Tachybrady Syndrome -Initially with afib RVR - started on diltiazem and coreg - became bradycardia requiring atropine and briefly on dopamine and epi gtt -Check ECHO -Avoid rate slowing medications -Telemetry -May need eventual EP consult for consideration of PPM Respiratory Arrest -Now intubated and sedated -Per ICU Seizure -Neurology consulted Chronic Kidney Disease -Renal function stable Acute on Chronic Heart Failure Preserved Ejection Fraction -ECHO (05/27/2025) LVEF 55-60%. Mild MR> LAE. RVSF. Severe TR. PASP 41 mmHg. Mild AI. Trivial pericardial effusion -CTPA - no acute PE. Bilateral pleural effusions and dependent opacities - atelectasis -INSIDE SALES RECRUITER lasix PRN -Currently on IV diuresis this admission -Volume status appears to be improving - likely transition to PO tomorrow Coronary Artery Disease -Remote history of CABG and subsequent PCIs -INSIDE SALES RECRUITER lipitor 40 mg, coreg 25 mg BID, ranexa 500 mg BID History of PE -No INSIDE SALES RECRUITER AC with history of ICH Elevated Troponin -Troponin 92, 83 -EKG afib RVR -ECHO pending Type 2 Diabetes -A1c 5.3 Hypertension -INSIDE SALES RECRUITER coreg 25 mg BID Hyperlipidemia -INSIDE SALES RECRUITER lipitor 40 mg Peripheral Vascular Disease -s/p recent left AKA Plan: Check ECHO Holding rate slowing medications Continue telemetry Reduce IV diuresis to daily - likely transition to PO tomorrow May need eventual EP consult for consideration of PPM Further input from Dr. Pascual Harris, HAMMER SH[employer] SUPERVISOR Heart and Vascular 06/24/2025 Disposition Perspective - Medically Ready for Discharge: No Anticipated Discharge: 1-2 days Discharge when / if: pending course ATTENDING PHYSICIAN NOTE/ATTESTATION: I have reviewed other provider notes as well as the patient's past and present medical problems, medications, allergies, family history, social history, laboratory and radiology studies. I have personally taken a detailed history and performed a detailed physical examination of this patient. A cardiology team advanced practitioner also participated in the patient's care and the above note reflects their findings. I have provided the majority of medical decision making as reflected below. My findings are below and may differ slightly from the assessment and plan of the advanced practitioner. Skyler Bautista is a 84 y.o. 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 A fib w/ RVR on admission, placed on dilt gtt, became bradycardic and hypotension, had subsequent PEA arrest, now s/p ETT and left IJ central line. ECG on admission w/ rapid atrial fibrillation, possible old anteroseptal MS Hs Trop 92-83 NT Pro BNP 7[facility] 11/25/2022- 1. 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 iFR of SVG to OM with results 0.98 Recommendations- Continue medical management and risk factor modification. Echo 05/2025: Normal LVEF, severe TR, RVSP 41 Nuclear MPI 12/2024: No ischemia, normal LVEF Intubated on exam, FiO2 40% Heart with tachycardia, irregular rhythm, no murmurs Lungs with mechanical breath sounds, coarse throughout No edema, ext well perfused Chronic AF, possibly tachy/amber, had seizures once in MICU, may have been etiology for LOC/Bradycardia while on floor. On dopamine gtt briefly. Now off dopamine, HR normal. Will discuss PPM if indicated once extubated Hold AV angela blocking agents, tolerate mildly elevated rates. If needed can use amiodarone No AC with ongoing anemia and hx of SAH Echo with mildly reduced LVEF, drop from prior, volume status looks reasonable on exam however her CXR looks like pulmonary congestion Give lasix 40mg IV Type II myocardial demand injury, no ACS. Continue atorvastatin. Advanced age, multiple comorbidities, overall guarded prognosis. Sukh Garner DO, FAC documented in this encounter ED Notes * Bart Fallon - 06/23/2025 3:44 PM EDT Lab called and said patient's mint green top needs redrawn. * Bart Fallon - 06/23/2025 3:42 PM EDT Paged cardiology about consult on patient. * Stephan Rodriguez MD - 06/23/2025 1:13 PM EDT Chief Complaint Patient presents with Atrial Fibrillation a fib rvr from [facility]. they report HR of 180, per squad HR 103. This is an 84-year-old female with a history of atrial fibrillation, diabetes mellitus, hypertension, CHF, peripheral vascular disease who presents [facility] the emergency department [facility]. The patient has been short of breath for the last 4 to 5 days. She states that it is better when they have placed her on oxygen, but she is not normally on oxygen. Her heart rates were apparently in the 180s [facility] the [facility]. EMS states that her heart rates are in the 150s during transport. She has had no cough, fever, or chills. She has had some chest pain. It is described as a burning sensation. It has been fairly constant and present in the substernal region. She states it is 2 out of 10 in intensity currently. No exacerbating or relieving factorshave been noted. She states that she did have a left lower extremity amputation 3 weeks ago. Patient History Allergies Allergen Reactions Lidocaine Rash Nitrofurantoin Rash Morphine Other (See Comments) Home Medications: Prior to Admission medications Medication Sig Start Date End Date Last Dose Authorizing Provider acetaminophen (TYLENOL) 500 mg Oral Tablet Take 1,000 mg by mouth every 8 hours. 03/23/24 Provider, Historical atorvastatin (LIPITOR) 40 mg Oral Tablet Take 40 mg by mouth nightly. Provider, Historical Calcium Carbonate (ANTACID ULTRA STRENGTH) 400 mg calcium (1,000 mg) Oral Tablet, Chewable Take 1,000 mg by mouth daily. 03/23/24 Provider, Historical carvediloL (COREG) 25 mg Oral Tablet Take 1 Tablet by mouth 2 times daily (with meals). 06/10/25 Trino Montiel MD cyanocobalamin 1,000 mcg Oral Tablet Take 1,000 mcg by mouth daily. Provider, Historical fUROsemide (LASIX) 40 mg Oral Tablet Take 1 Tablet by mouth daily as needed for Other (edema, SOB).06/10/25 Trino Montiel MD latanoprost (XALATAN) 0.005 % Opht Drops Apply 1 Drop to eye nightly. 06/10/25 Trino Montiel MD lidocaine (ASPERCREME) 4 % Top Adhesive Patch, Medicated Place 1 Patch onto the skin daily. 06/11/25Trino Montiel MD nalOXone (NARCAN) 4 mg/actuation Nasl [place], Non-Aerosol 0.1 mL by Nasal route as needed for OpioidReversal. [place] the contents of one device (0.1mL) into one nostril upon signs of opioid overdose. Call 911. May repeat dose in other nostril if no response within 2-3 minutes. 02/04/25 Flaco Caban MD nortriptyline (PAMELOR) 10 mg Oral Capsule Take 1 Capsule by mouth nightly. 06/10/25 Trino Montiel MD oxyCODONE (ROXICODONE) 5 mg Oral Tablet Take 1-2 Tablets by mouth every 4 hours as needed for AcutePain (R52). 06/10/25 Trino Montiel MD pantoprazole (PROTONIX) 40 mg Oral Tablet, Delayed Release (E.C.) Take 1 Tablet by mouth 2 times daily. 06/10/25 Trino Montiel MD polyethylene glycol (GLYCOLAX, MIRALAX) 17 gram Oral Powder in Packet Take 17 g by mouth daily. 01/27/24 Provider, Historical ranolazine (RANEXA) 500 mg Oral Tablet Sustained Release 12 hr Take 1,000 mg by mouth daily. 12/25/18 Provider, Historical Past Medical History: Past Medical History: Diagnosis [...] years ago. Urinary incontinence Urinary tract infection Social History: reports that she quit smoking about 33 years ago. Her smoking use included cigarettes. She has been exposed to tobacco smoke. She has never used smokeless tobacco. She reports that she does not currently use alcohol. She reports that she is not currently sexually active and has had partner(s) who are male. She reports that she does not use drugs. E-Cigarettes (such as Vapes or Juul) E-Cigarette Use Never User Family History: No family history on file. Surgical History: Past Surgical History: Procedure Laterality Date ABDOMEN [...] amputation revision; Surgeon: Irineo Perez DPM; Location: [facility] MAIN OR; Service: Podiatry HYSTERECTOMY IR ABDOMINAL [...] IR REVAS FEM POP ART 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 01/30/2025 IR REVAS FEM POP ART 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 01/30/2025 Vargas Wolf MD [facility] IR IR [...] DPM; Location: [facility]; Service: Podiatry Review of Systems Review of Systems Constitutional: Negative for fever. Respiratory: Positive for shortness of breath. Negative for cough. Cardiovascular: Positive for chest pain. Gastrointestinal: Negative for vomiting. Neurological: Positive for weakness. Physical Exam Blood pressure (!) 163/101, pulse 121, resp. rate 16, SpO2 98%, not currently . Physical Exam Vitals and nursing note reviewed. Constitutional: General: She is not in acute distress. HENT: Mouth/Throat: Mouth: Mucous membranes are moist. Mucous membranes are pale. Cardiovascular: Rate and Rhythm: Tachycardia present. Rhythm irregular. Pulmonary: Effort: Pulmonary effort is normal. Breath sounds: Examination of the right-lower field reveals decreased breath sounds. Decreased breath sounds present. Musculoskeletal: Comments: There is a left [id number] amputation. Skin: Findings: No erythema. Neurological: General: No focal deficit present. Mental Status: She is alert. Procedures Radiology/EKG/Labs: EK EKG 12 LEAD ED Interpretation by Stephan Rodriguez MD (06/23 1325) Twelve-lead EKG interpretation Comparison: 05/28/2025 Interpretation: EKG shows atrial fibrillation with a rate of 139. Normal axis. Nonspecific ST-T wave changes seen by my reading. This is similar when compared with previous tracing. Stephan Rodriguez M.D. Results for orders placed or performed during the hospital encounter of 06/23/25 XR CHEST AP PORTABLE Narrative XR CHEST AP PORTABLE, 06/23/2025 1:41 PM CLINICAL HISTORY: -sob COMPARISON: 06/09/2025. PROCEDURE COMMENTS: AP portable technique. FINDINGS: Support devices: No visible support devices. Heart and mediastinum: Borderline-enlarged likely related to hypoexpansion and portable technique. LUNGS: Patchy bilateral airspace opacities with vascular indistinctness and bilateral pleural effusions. No pneumothorax. Impression Findings suggestive of pulmonary edema with bilateral pleural effusions. - Note: Radiology results need to be interpreted within a comprehensive clinical context. If you have questions about the radiology report, please contact the office of the ordering clinician. CT ANGIOGRAM PULMONARY W CONTRAST Narrative CT PULMONARY ANGIOGRAM, 06/23/2025 2:57 PM CLINICAL HISTORY: -Short of breath, elevated D-dimer, atrial fibrillation. COMPARISON: None. TECHNIQUE: PE protocol CT angiogram of the chest using Isovue 370 IV contrast as recorded in EPIC. 2-D multiplanar reconstructions and 3-D MIP reconstructions reviewed. Dose 1 : CT DLP Total : 109.65 mGycm DLP Spiral Max : 96.21 mGycm Maximum CTDI Vol : 9.53 mGy FINDINGS: Adequate visualization of the pulmonary arteries to the segmental/subsegmental level. No acute pulmonary embolism. No aortic arch aneurysm. No pneumothorax. Small left and rqgwe-kp-gqcfrzor right pleural effusions. Emphysema. Opacities dependently in the lower lobes. Impression deformity along the superior endplate of L2 and inferior endplate of T6. Some sclerosis suggesting these are likely remote. Coronary artery calcification: Severe. Impression No acute pulmonary embolism. Bilateral pleural effusions and dependent opacities which may represent atelectasis - Note: Radiology results need to be interpreted within a comprehensive clinical context. If you have questions about the radiology report, please contact the office of the ordering clinician. CBC Result Value Ref Range WBC 3.4 (L) 3.7 - 10.3 x10(3)/mcL RBC 2.72 (L) 3.90 - 5.20 x10(6)/mcL Hgb 10.2 (L) 11.2 - 15.7 g/dL Hct 30.1 (L) 34.0 - 45.0 % MCV 110.7 (H) 80.0 - 100.0 fL MCH 37.5 (H) 26.0 - 34.0 pg MCHC 33.9 30.7 - 35.5 g/dL RDW 19.9 (H) <=14.9 % Platelet 84 (L) 155 - 369 x10(3)/mcL MPV 12.7 (H) 8.8 - 12.5 fL BASIC METABOLIC PANEL Result Value Ref Range Sodium 138 136 - 145 mmol/L Potassium 4.5 3.5 - 5.0 mmol/L Chloride 107 98 - 107 mmol/L Total CO2 20 (L) 22 - 29 mmol/L Anion Gap 11 7 - 16 mmol/L Calcium 9.1 8.8 - 10.4 mg/dL Glucose Lvl 116 (H) 70 - 99 mg/dL BUN 10 8 - 23 mg/dL Creatinine 0.84 0.51 - 1.30 mg/dL eGFR (CKD-EPIcr 2020) 68 >=60 mL/min/1.73 m2 TROPONIN-T HIGH SENSITIVITY BASELINE W/ REFLEX Result Value Ref Range ey-gMmemfruj-V 92 (H) <14 ng/L Narrative Ingestion of angie doses of biotin (>5 mg/day) taken within 8 hours of drawing blood sample can interfere with this immunoassay test. D-DIMER Result Value Ref Range D-Dimer 1,389 (H) <=500 ng/mL FEU PT / INR Result Value Ref Range PT 15.3 (H) 10.5 - 13.6 second(s) INR 1.32 (H) 0.91 - 1.18 (ratio) PARTIAL THROMBOPLASTIN TIME Result Value Ref Range PTT 37.0 (H) 25.7 - 36.8 second(s) NT PROBNP Result Value Ref Range NT Pro-BNP 7,449 (H) <=624 pg/mL Narrative An NT pro-BNP level less than 300 pg/mL in any patient, regardless of age, effectively rules out acute CHF with a 99% negative predictive value. Ingestion of angie doses of biotin (>5 mg/day) taken within 8 hours of drawing blood sample can interfere with this immunoassay test. EK EKG 12 LEAD Narrative NOTICE: Preliminary tracing available for review; Final Interpretation by physician to follow. Impression [facility] Test Date: 2025-06-23 Pat Name: SKYLER BAUTISTA Department: [facility] Room: 03 Gender: Female Senior International Tax Manager: Femi : 1940 Requested By: STEPHAN Earl Order Number: [id number] Reading MD: Measurements Intervals [place] Rate: 139 P: 0 TN: 0 QRS: 65 QRSD: 82 T: 26 QT: 286 QTc: 436 Interpretive Statements ATRIAL FIBRILLATION WITH RAPID VENTRICULAR RESPONSE SEPTAL MYOCARDIAL INFARCTION, PROBABLY OLD ED Course: Appropriate laboratory and radiology studies reviewed ED Course as of 06/23/25 1533 Stephan Rodriguez's Documentation Sun Jun 23, 2025 1323 The patient was seen and examined. History was obtained from the patient, EMS, the [facility], and review of previous medical records. Differential diagnosis includes, but not limited to: A-fib with RVR, pulmonary edema, pulmonary embolism, pneumonia, ACS. Plan: EKG, chest x-ray, blood work will be obtained. 1328 EKG shows A-fib with RVR. She will be bolused with Cardizem, and started on a Cardizem drip for rate control. 1352 Heart rate now down into the 80s. She is feeling better. Chest x-ray does demonstrate pulmonary edema. Dose of IV Lasix has been ordered. 1404 NT Pro-BNP(!): 7,449 BNP is elevated which is consistent with pulmonary edema seen on chest x-ray. 1404 D-Dimer(!): 1,389 D-dimer elevated. CT angiogram chest to be performed to rule out pulmonary embolism. 1417 dr-eGdthyktk-G(!): 92 Troponin elevated. This will be trended. 1516 No evidence of pulmonary embolism on CT. patient does have bilateral pleural effusions. 1533 I have spoken with , who is covering for the hospitalist service. Patient will be admitted for further evaluation and treatment. ED Clinical Impression: 1. Atrial fibrillation with RVR (HCC) 2. Acute pulmonary edema (HCC) 3. Elevated troponin 4. Pleural effusion Critical Care time Total time critical care 38 minutes MDM Medical Decision Making Problems Addressed: Acute pulmonary edema (HCC): chronic illness or injury Atrial fibrillation with RVR (HCC): chronic illness or injury Elevated troponin: complicated acute illness or injury Pleural effusion: complicated acute illness or injury Amount and/or Complexity of Data Reviewed Labs: ordered. Decision-making details documented in ED Course. Radiology: ordered. Risk Prescription drug management. Decision regarding hospitalization. 84-year-old female who presents with shortness of breath. She is found to be in atrial fibrillationwith RVR. She is also found to be in pulmonary edema with pleural effusions. Patient's rate has come down in the emergency department. Diuresis has been initiated. She will be evaluated for further evaluation and treatment. Condition at Discharge/Transfer from Department: Stable This chart was completed using voice recognition technology and may contain unintended errors Stephan Rodriguez MD 06/23/25 1632 documented in this encounter Miscellaneous Notes * Utilization Review Notes - Adry Pro RN - 07/01/2025 12:11 PM EDT CONTINUED STAY REVIEW INPT STATUS SINCE 06/24 Acute respiratory failure with hypoxia Resolved. On room air. Extubated. A-fib with tachybradycardia Resolved. Continue p.o. Toprol 25 mg daily No anticoagulation due to anemia, thrombocytopenia and history of subarachnoid bleed Cardiology signed off. Seizure-like activity Prior history of traumatic brain injury CT head with no acute findings. Right paranasal sinus disease. On p.o. Camilo Neurology consulted and signed off. 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 Continue p.o. gabapentin Caution with narcotics. On p.o. oxycodone. Acute on chronic diastolic heart failure Compensated. Last echo with normal LVEF, severe tricuspid regurgitation, RVSP 41 mmHg Continue p.o. Lasix 40 mg daily Close monitoring of renal function. Creatinine today is 0.82. History of pulm embolism Not on anticoagulation due to subarachnoid bleed. Anemia Hemoglobin stable. Thrombocytopenia Platelet counts are improving. Type 2 diabetes mellitus Blood sugar stable. Continue sliding scale insulin. Constipation Give mag citrate. History of subarachnoid hemorrhage/traumatic brain injury Hold anticoagulation. Dispo: Discussed with RN, childbirth and infant care teacher. Awaiting facility in [place]. * Utilization Review Notes - Dacia Peters RN - 06/27/2025 12:23 PM EDT CONT'D STAY REVIEW ON [place] [facility] TELEMETRY FOR Acute respiratory failure with hypoxia, RESP ARREST, AFIB WITH RVR + IP ORDER ON CHART ADMIT 06/23/25 OBS; INPATIENT 06/24/25 EXTUBATED 06/25/25 TELEMETRY, PT/[id number]-VASCULAR SURGERY FOLLOWING, INSULIN PROTOCOL, KEPPRA PO BID PER PMD: Acute respiratory failure with hypoxia Improved. Extubated on room air. A-fib with tachybradycardia Tachycardic again today. Rapid response was called other day and patient was given atropine and dopamine for bradycardia Restarted on low-dose Lopressor. Can go up on the dose of beta-melinda if okay with cardiology. Monitor closely for bradycardia. Cardiology following. Seizure-like activity Prior history of traumatic brain injury CT head with no acute findings. Right paranasal sinus disease. On p.o. Keppra Neurology consulted. Acute on chronic diastolic heart failure NT proBNP is trending up. 7000 today. It was 5000 yesterday. Last echo with normal LVEF, severe tricuspid regurgitation, RVSP 41 mmHg On IV Lasix. Monitor renal function closely. Monitor electrolytes closely. History of pulm embolism Not on anticoagulation due to subarachnoid bleed. Anemia Hemoglobin stable. Thrombocytopenia Platelet counts are improving. Status post left above-knee amputation Type 2 diabetes mellitus Blood sugar stable. Continue sliding scale insulin. History of subarachnoid hemorrhage/traumatic brain injury Hold anticoagulation. Nutrition Evaluated by speech therapy. Okay to start on diet recommended by speech therapy. Recommendations noted. Chronic pain Caution with narcotics. On Roxicodone. D/C PLAN: SNF ON DISCHARGE; PENDING FURTHER ASSESSMENTS. * Plan of Care - Charlee Turner CCC-SNOWBLOWER MECHANIC - 06/26/2025 11:03 AM EDT Clinical Swallow Evaluation (CSE) Speech Pathology Clinical Swallow Evaluation completed. Pt intubated 06/24-06/25/25. Hx cerebellar CVA and recent Left AKA. She denied dysphagia hx with liquids, but endorsed swallowing larger pills whole with pudding at baseline, and avoiding some harder texture foods that are difficult for her to chew. Impression: Patient demonstrated clinically functional oropharyngeal swallow. Vocal quality was clear this morning, which pt recalling sore throat and vocal hoarseness from yesterday, now resolved and remained clear across speaking and PO trials. She was missing all molars, and missing her anterior upper teethsince a recent fall, affecting her ability to bite into foods and masticate harder textures. She cindi f-fed thin liquid by cup and straw, puree and hard solid. Oral containment and oral clearance was functional. She coordinated single and sequential swallows of thin liquid. She denied globus sensation across all trials. No overt aspiration symptoms were appreciated. Recommendations: Regular Solids, Thin Liquids Medication administration: smaller pills With thin liquids, larger pills whole with puree Assistance/Supervision: Independent Upright positioning [address] POC: 1-2x/wk Dysphagia management: monitor ongoing diet tolerance as PO diet is resumed with clinical reassessment vs formal swallow evaluation if indicated This note is to serve as discharge summary if no further Speech services are provided before being discharged from the hospital. 06/26/25 0853 Clinical Swallow Evaluation (CSE) Patient Seen Today? Yes Note Type Evaluation Time In 0841 Time Out 0855 Admitting Diagnosis Afib Speech Therapy Related Diagnosis R13.10 Dysphagia unspecified Date of onset 06/24/25 Pertinent and Past Medical History Afib RVR on admission from [facility] for rehab post AKA on Lleg 06/24: RR on TCU, moved to ICU and intubated, extubated 06/25 11am. PMH: cerebellar infarcts, Left frontal hemorrhagic contusion s/p fall Recent Imaging Chest 06/24 CXR: Worsening pulmonary edema with enlarging pleural effusions Recent Imaging Head 06/24 HCT: 1. No acute intracranial abnormality. 2. Right paranasal sinus disease. Speech Therapy Personal Protective Equipment Gloves;Gown Others Present/Assisting none Pain Scale 0-10 0 Assistive Devices None Behavior/Alertness Awake/Alert;Attentive;Cooperative Prior level of function Independent with ADLs Speech/Language No impairment noted/Appears WFL Patient Positioning Upright in bed Dentition Missing teeth Pertinent allergies None per chart review Current Diet NPO Diet prior to admit Regular;Thin Liquids Preferred Mode of Liquid Presentation Cup & Straw Previous MBS none in EPIC Previous FEES none in EPIC Baseline Vocal Quality Normal Volitional Cough Strong Secretion Managment WFL Oral And Cranial Nerve Assessment Oral Mucosa Moist, healthy CN V Trigeminal Intact facial sensation;Intact mandibular strength/ROM CN VII Facial Intact facial symmetry CN IX/X Glossopharyngeal/Vagus Intact velar elevation;Vocal quality WNL CN XII Hypoglossal Tongue protrudes midline Respiratory Respiratory status Yes Room air Appears WFL History of Intubation w/ this admit No Consistencies Assessed Consistencies Assessed Yes Ice Chips Presentation Assisted feeding;Spoon Oral WFL Pharyngeal WFL;No overt s/s of aspiration Thin Presentation Self fed;Fed by Clinician;Spoon;Cup;Straw;Single swallow;Sequential swallows Oral WFL Pharyngeal WFL;No overt s/s of aspiration Pureed PU4 Presentation Self Fed Oral WFL Pharyngeal WFL;No overt s/s of aspiration Regular Solid Presentation Self Fed Oral WFL Pharyngeal WFL;No overt s/s of aspiration Results/Recommendations Clincial Swallow Impression No overt s/s of aspiration noted at bedside;Swallow appears WNL/WFL Diet Recommendations Regular Solids;Thin Liquids Liquid Presentation Cup;Straw Strategies/Maneuvers Upright positioning 90 degrees Assistance/Supervision Independent Medication administration With thin liquids CSE Goals Clinical Swallow Eval Results discussed with Patient;Nursing Patient and/or Family Goal none voiced Patient/Family Education Completed Yes SNOWBLOWER MECHANIC Recommendation No post discharge therapy recommended Frequency/Follow up 1-2x/wk Treatment Interventions Dysphagia management Time for Goal Achievement/Duration of Treatment 1 week * RT Oxygen Plan of Care Note - Courtney Lloyd RRT - 06/25/2025 8:19 AM EDT Images from the original note were not included. June 25, 2025 Oxygen Therapy: Maintain Oxygen Sat greater than or equal to: O2 Device: Ventilator FiO2 (%): 25 % SpO2: 98 % Will continue to wean oxygen as tolerated to maintain titration goal. Courtney Lloyd RRT * RT Oxygen Plan of Care Note - Lauren Gannon RRT - 06/24/2025 8:00 PM EDT Images from the original note were not included. June 24, 2025 Oxygen Therapy: Maintain Oxygen Sat greater than or equal to: O2 Device: Ventilator FiO2 (%): 25 % SpO2: 98 % Will continue to wean oxygen as tolerated to maintain titration goal. Lauren Gannon RRT * Utilization Review Notes - Danielle Smith LPN - 06/24/2025 8:44 AM EDT 06/24 PT IN INTENISVE CARE UNIT WAS ADMITTED OBV, NOW CHANGED TO INPT ON 06/24 , 84-year-old female admitted to the ICU for management shock, presumed cardiogenic secondary to bradycardia complicated by a possible brief episode of pulseless electrical activity. She presented to the emergency department 06/23 for evaluation of atrial fibrillation and shortness of breath. NOW ON VENT, CENTAL LINE IN PLACE, Rapid response was called secondary to patient having bradycardia in the 40s and with hypotension with systolic blood pressure less than 70. Of note patient earlier on was in A-fib for RVR and was onCardizem drip. She had received melatonin. Her Cardizem drip was of before rapid response was called. EKG interpreted by myself showed A-fib with slow ventricular response. Magnesium 4mg IV was orderedas last magnesium on file was 1.5. The patient was transported to the intensive care unit. Immediately patient got to intensive care unit she began to seize. A 2 mg of Ativan was ordered. Patient seized breathing. She was Ambu bagged. Patient seems to have lost her pulse momentarily. She was PE on the monitor. Her pulse was later palpated. Patient was immediately intubated. She was started on epinephrine drip. Dopamine was ordered. Was placed propofol and fentanyl drip. * Utilization Review Notes - Darline Amador RN - 06/23/2025 4:19 PM EDT UM chart review. Pt admitted as Obs 06/23/25 through ED Atrial Fibrillation-a fib rvr from [employer]. they report HR of 180, per squad HR 103. Vitals: 06/23/25 1430 06/23/25 1525 06/23/25 1530 06/23/25 1600 BP: 140/78 Pulse: 77 79 83 82 Resp: 14 14 23 14 SpO2: 96% 99% 99% 92% WBC 3.4 (L) 06/23/2025 HGB 10.2 (L) 06/23/2025 HCT 30.1 (L) 06/23/2025 PLT 84 (L) INR 1.32 (H) (CARDIZEM) 1 mg/mL in sodium chloride 0.9 % 125 mL infusion Rate:10 mL/hr Dose: 10 mg/hr (LASix) injection 40 mg Home Med's as ordered documented in this encounter Plan of Treatment Upcoming Encounters Date Type Department Care Team (Late st Contact Info) Description 08/19/2025 2:00 PM EST Office Visit [facility] [address] [place] [address] [place] [phone] Vargas Wolf MD [address] [place], [place] [id number] Pending Results Name Type Priority Associated Diagnoses Date /Time ECG AND WAVEFORMS - TELEMETRY Point of Care Testing Routine 06/23/2025 7:59 PM EDT ECG AND WAVEFORMS - TELEMETRY Point of Care Testing Routine 06/23/2025 8:25 PM EDT ECG AND WAVEFORMS - TELEMETRY Point of Care Testing Routine 06/23/2025 8:32 PM EDT ECG AND WAVEFORMS - TELEMETRY Point of Care Testing Routine 06/23/2025 8:38 PM EDT ECG AND WAVEFORMS - TELEMETRY Point of Care Testing Routine 06/23/2025 9:16 PM EDT ECG AND WAVEFORMS - TELEMETRY Point of Care Testing Routine 06/23/2025 11:57 PM EDT ECG AND WAVEFORMS - TELEMETRY Point of Care Testing Routine 07/02/2025 7:19 AM EDT documented as of this encounter Procedures Procedure Name Priority Date/Time Associated Diagnosis Comments GLUCOSE METER POC Routine 07/02/2025 8:08 AM EDT ECG AND WAVEFORMS - TELEMETRY Routine 07/02/2025 7:19 AM EDT GLUCOSE METER POC Routine 07/01/2025 8:19 PM EDT ECG AND WAVEFORMS - TELEMETRY Routine 07/01/2025 7:05 PM EDT GLUCOSE METER POC Routine 07/01/2025 5:28 PM EDT GLUCOSE METER POC Routine 07/01/2025 11:44 AM EDT COMPREHENSIVE METABOLIC PANEL Timed 07/01/2025 10:56 AM EDT ECG AND WAVEFORMS - TELEMETRY Routine 07/01/2025 7:07 AM EDT GLUCOSE METER POC Routine 06/30/2025 9:11 PM EDT ECG AND WAVEFORMS - TELEMETRY Routine 06/30/2025 7:00 PM EDT GLUCOSE METER POC Routine 06/30/2025 4:26 PM EDT GLUCOSE METER POC Routine 06/30/2025 12:22 PM EDT COMPREHENSIVE METABOLIC PANEL Timed 06/30/2025 10:18 AM EDT GLUCOSE METER POC Routine 06/30/2025 8:26 AM EDT ECG AND WAVEFORMS - TELEMETRY Routine 06/30/2025 7:03 AM EDT GLUCOSE METER POC Routine 06/29/2025 9:25 PM EDT ECG AND WAVEFORMS - TELEMETRY Routine 06/29/2025 7:00 PM EDT GLUCOSE METER POC Routine 06/29/2025 5:50 PM EDT COMPREHENSIVE METABOLIC PANEL Timed 06/29/2025 11:22 AM EDT GLUCOSE METER POC Routine 06/29/2025 10:28 AM EDT ECG AND WAVEFORMS - TELEMETRY Routine 06/29/2025 7:03 AM EDT ECG AND WAVEFORMS - TELEMETRY Routine 06/29/2025 5:17 AM EDT GLUCOSE METER POC Routine 06/28/2025 10:06 PM EDT ECG AND WAVEFORMS - TELEMETRY Routine 06/28/2025 7:21 PM EDT GLUCOSE METER POC Routine 06/28/2025 5:07 PM EDT GLUCOSE METER POC Routine 06/28/2025 12:03 PM EDT CBC WITH DIFF Routine 06/28/2025 11:26 AM EDT PHOSPHORUS LEVEL Routine 06/28/2025 11:26 AM EDT MAGNESIUM LEVEL Routine 06/28/2025 11:26 AM EDT COMPREHENSIVE METABOLIC PANEL Timed 06/28/2025 11:26 AM EDT GLUCOSE METER POC Routine 06/28/2025 8:20 AM EDT ECG AND WAVEFORMS - TELEMETRY Routine 06/28/2025 7:00 AM EDT GLUCOSE METER POC Routine 06/28/2025 12:13 AM EDT GLUCOSE METER POC Routine 06/27/2025 8:12 PM EDT ECG AND WAVEFORMS - TELEMETRY Routine 06/27/2025 7:22 PM EDT GLUCOSE METER POC Routine 06/27/2025 5:34 PM EDT GLUCOSE METER POC Routine 06/27/2025 11:48 AM EDT GLUCOSE METER POC Routine 06/27/2025 9:02 AM EDT EXTRA TUBES PANEL Routine 06/27/2025 8:28 AM EDT EXTRA LAVENDER Routine 06/27/2025 8:28 AM EDT BASIC METABOLIC PANEL STAT 06/27/2025 8:28 AM EDT ECG AND WAVEFORMS - TELEMETRY Routine 06/27/2025 7:00 AM EDT GLUCOSE METER POC Routine 06/27/2025 5:39 AM EDT GLUCOSE METER POC Routine 06/27/2025 12:32 AM EDT GLUCOSE METER POC Routine 06/26/2025 8:15 PM EDT ECG AND WAVEFORMS - TELEMETRY Routine 06/26/2025 7:52 PM EDT GLUCOSE METER POC Routine 06/26/2025 5:59 PM EDT ECG AND WAVEFORMS - TELEMETRY Routine 06/26/2025 5:10 PM EDT CBC WITH DIFF Timed 06/26/2025 2:27 PM EDT POTASSIUM LEVEL Timed 06/26/2025 2:27 PM EDT US RENAL AND BLADDER PAULETTE 06/26/2025 12:44 PM EDT GLUCOSE METER POC Routine 06/26/2025 12:39 PM EDT ECG AND WAVEFORMS - TELEMETRY Routine 06/26/2025 7:51 AM EDT CBC Early AM 06/26/2025 6:31 AM EDT NT PROBNP Early AM 06/26/2025 6:31 AM EDT BASIC METABOLIC PANEL Early AM 06/26/2025 6:31 AM EDT GLUCOSE METER POC Routine 06/26/2025 6:30 AM EDT GLUCOSE METER POC Routine 06/26/2025 12:14 AM EDT IP CONSULT TO UROLOGY Routine 06/25/2025 7:58 PM EDT Procedure Note - Antoine Woo PA-C - 06/26/2025 8:30 AM EDTThis note is in progress. Images from the original note were not included. 06/26/2025 Skyler Bautista [id number] Reason for Consult: Urinary retention Requesting Physician: Duong Vitale MD History Obtained From: Patient, chart review HISTORY OF PRESENT ILLNESS: The patient is a 84 y.o. female with a PMHx of PAD, CHF, Afib,CKD, DM, admitted on 06/23/2025 to [facility] for AFIB with RVR. She iscurrently in ICU for AFIB with tachycardia, seizure like activity, acuteon chronic HF. Urology has been consulted for Urinary Retention. Patientwith elevated PVRs, has been straight cath for 850cc several times sinceadmission. Indwelling garrido placed last night, 06/25/2025, by MOTOR ELECTRICIANJessi Marcum, the patient was seen by our group earlier this year for urinaryretention and refused a garrido. The patient reports that she's had episodesof retention intermittently in the past. She did note some bladderpressure with retention. Denies recent pain with urination, GH. Last BMwas last night. UA 06/23/25 negative. No recent abdominal/pelvic imagingdone. Today, Cr 0.87. Currently, she reports tolerating garrido. Per chart review, she was seen by Urology in 2021 for workup of GH,rUTIs, and UI. She underwent CTU and cysto which was negative formalignancy. She was started on topical estrogen at that time (notcurrently on her home med list). She is not currently on any OABmedications and none noted on review of home meds. Past Medical History: Diagnosis Date A-fib (HCC) [...] Above Knee Amputation; Surgeon: Vargas Wolf MD; Location:[facility]; Service: Vascular CARDIAC CATHETERIZATION CARDIAC SURGERY CABG/stents FOOT SURGERY Left 03/09/2025 Transmetatarsal amputation of the left foot; Surgeon: Tony Mills DPM; Location: [facility]; Service: Podiatry FOOT SURGERY Left 03/17/2025 left transmetatarsal amputation revision; Surgeon: Irineo Perez DPM; Location: [facility]; Service: Podiatry HYSTERECTOMY IR ABDOMINAL AORTOGRAM SERIALOGRAM 05/10/2025 IR ABDOMINAL AORTOGRAM SERIALOGRAM 05/10/2025 Vargas Wolf MD [facility] IR ANGIOGRAM EXTREMITY LEFT 01/30/2025 IR ANGIOGRAM EXTREMITY LEFT 01/30/2025 Vargas Wolf MD [facility] IR IR ANGIOGRAM FEMORAL ARTERIO SHIFT 01/17/2025 IR ANGIOGRAM FEMORAL ARTERIO SHIFT 01/17/2025 Vargas Wolf MD [facility] IR ANGIOGRAM FEMORAL ARTERIO SHIFT 05/10/2025 IR ANGIOGRAM FEMORAL ARTERIO SHIFT 05/10/2025 Vargas Wolf MD [facility] IR REVAS FEM POP ART 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 01/30/2025 IR REVAS FEM POP ART 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 01/30/2025 Vargas Wolf MD [facility] IR ULTRASOUND GUIDED VASCULAR ACCESS 01/17/2025 IR ULTRASOUND GUIDED VASCULAR ACCESS 01/17/2025 Vargas Wolf MD FLOIR IR ULTRASOUND GUIDED VASCULAR ACCESS 01/30/2025 IR ULTRASOUND GUIDED VASCULAR ACCESS 01/30/2025 Vargas Wolf MD [facility] IR ULTRASOUND GUIDED VASCULAR ACCESS 05/10/2025 IR ULTRASOUND GUIDED VASCULAR ACCESS 05/10/2025 Vargas Wolf MD [facility] JOINT REPLACEMENT TOE SURGERY Left 01/31/2025 Left foot hallux amputation; Surgeon: Dacia Mills DPM;Location: [facility]; Service: Podiatry Medications: Scheduled Meds: acetaminophen 1,000 mg Oral 3 times per day atorvastatin 40 mg Oral Nightly calcium carbonate 1,000 mg Oral Daily cyanocobalamin 1,000 mcg Oral Daily fUROsemide 40 mg Intravenous Daily gabapentin 300 mg Oral Daily Insulin Calculator - FSBS (Correction Only) Intake Input 1 EachMISCELLANEOUS 4 times per day And insulin aspart (NovoLOG) - Correction Factor PATIENT-SPECIFIC 0-40 UnitsSubcutaneous 4 times per day latanoprost 1 Drop Ophthalmic Nightly levETIRAcetam (KEPPRA) IV (Orderable) 750 mg Intravenous 2 times per day metoprolol 12.5 mg Oral BID mupirocin Nasal BID nortriptyline 10 mg Oral Nightly pantoprazole (PROTONIX) 40 mg Intravenous BID Or pantoprazole 40 mg Oral BID polyethylene glycol 17 g Enteral BID potassium chloride in water 20 mEq Intravenous Once Followed by potassium chloride in water 20 mEq Intravenous Once sodium chloride 0.9% 10 mL Intravenous 3 times per day Continuous Infusions: sodium chloride 0.9 % PRN Meds:.sodium chloride 0.9 %, acetaminophen OR acetaminophen ORacetaminophen, atropine, dextrose, glucagon AND sterile water, ICUElectrolyte Replacement - Calcium, ICU Electrolyte Replacement -Magnesium, ICU Electrolyte Replacement - Phosphate, ICU ElectrolyteReplacement - Potassium, melatonin, nitroGLYCERIN, ondansetron ORondansetron, oxyCODONE, senna, sodium chloride 0.9%, sodium chloride 0.9%,sodium chloride 0.9%, sodium chloride 0.9%, traMADoL Allergies Allergen Reactions Lidocaine Rash Nitrofurantoin Rash Morphine Other (See Comments) Social reports that she quit smoking about 33 years ago. Her smoking useincluded cigarettes. She has been exposed to tobacco smoke. She has neverused smokeless tobacco. She reports that she does not currently usealcohol. She reports that she does not use drugs. No family history on file. REVIEW OF SYSTEMS: A comprehensive review of systems was negative except for: See HPI, exceptfor the above noted system information in the History of presentingillness. VITALS: Vitals: 06/26/25 0600 06/26/25 0700 06/26/25 0800 06/26/25 09 BP: 169/73 158/85 155/82 165/77 BP Location: Patient Position: Pulse: 94 97 93 97 Resp: 24 23 (!) 34 18 Temp: 99.3 F (37.4 C) 99.6 F (37.6 C) 99.6 F (37.6 C) 99.5 F (37.5 C) TempSrc: SpO2: 95% 95% 95% 97% Weight: 122 lb 12.7 oz (55.7 kg) Physical Examination: General appearance - alert, well appearing, and in no distress, orientedto person, place, and time and well hydrated Ears - hearing grossly normal bilaterally Nose - normal and patent Mouth - mucous membranes moist Chest - breathing comfortably Abdomen - soft, nontender, nondistended Pelvic - garrido in place draining clear yellow urine Back exam - no CVA ttp DATA: CBC: Lab Results Component Value Date WBC 4.6 06/26/2025 RBC 2.48 (L) 06/26/2025 HGB 9.0 (L) 06/26/2025 HCT 27.4 (L) 06/26/2025 MCV 110.5 (H) 06/26/2025 MCHC 32.8 06/26/2025 RDW 19.3 (H) 06/26/2025 PLT 87 (L) 06/26/2025 MPV 12.9 (H) 06/26/2025 BMP: Lab Results Component Value Date NA 138 06/26/2025 K 3.9 06/26/2025 CL 106 06/26/2025 CO2 22 06/26/2025 BUN 13 06/26/2025 CREATININE 0.87 06/26/2025 CALCIUM 8.3 (L) 06/26/2025 GLU 95 06/26/2025 Lab Results Component Value Date SPECGRAV 1.011 06/23/2025 UAPROTEIN Negative 06/23/2025 BLOODU Negative 06/23/2025 NITRITE Negative 06/23/2025 LEUKOCYTESUR Negative 06/23/2025 WBCUA 1 06/23/2025 RBCUA 1 06/23/2025 No results found. IMPRESSION/RECOMMENDATIONS: Active Hospital Problems Diagnosis *Atrial fibrillation with RVR (HCC) Seizure (HCC) Respiratory arrest (HCC) Atrial fibrillation with slow ventricular response (HCC) Acute pulmonary edema (HCC) Anemia in other chronic diseases classified elsewhere Stage 3a chronic kidney disease (HCC) Chest pain, unspecified type // Elevated troponin Acute on chronic heart failure with preserved ejection fraction (HCC) Hx of subarachnoid hemorrhage // history of traumatic brain injury -hemorrhagic cerebral contusion History of pulmonary embolus (PE) Paroxysmal atrial fibrillation (HCC) Type 2 diabetes mellitus, without long-term current use of insulin (HCC) Hypertension associated with diabetes (HCC) Urinary Retention -elevated PVRs, has been straight cath several times forup to 850cc. Acute of chronic HF - Currently on IV Lasix AFIB with RVR H/o GH and Alexus - Seen at Urology in 2021 for workup of GH, rUTIs,and UI. She underwent CTU and cysto which was negative for malignancy. Shewas started on topical estrogen at that time (not currently on her homemed list). She is not currently on any OAB medications and none noted onreview of home meds. Recommend keeping garrido and doing outpatient VT in the office. DO NOTREMOVE GARRIDO before discussing with urology I spoke with Son Edgar and he agrees with outpatient VT in the office. No additional plans, Urology signing off. Please call w/ questions orconcerns. Thank you for asking me to see your patient. Antoine Ferraro PA-C 06/26/2025 9:04 AM ECG AND WAVEFORMS - TELEMETRY Routine 06/25/2025 7:20 PM EDT GLUCOSE METER POC Routine 06/25/2025 6:14 PM EDT POTASSIUM LEVEL Timed 06/25/2025 4:44 PM EDT EEG ED/ICU REMOTE MONITORING Routine 06/25/2025 3:28 PM EDT GLUCOSE METER POC Routine 06/25/2025 12:30 PM EDT BLOOD GAS, VENOUS Timed 06/25/2025 10:58 AM EDT GLUCOSE METER POC Routine 06/25/2025 8:20 AM EDT ECG AND WAVEFORMS - TELEMETRY Routine 06/25/2025 7:40 AM EDT CBC Early AM 06/25/2025 6:31 AM EDT NT PROBNP Early AM 06/25/2025 6:31 AM EDT BASIC METABOLIC PANEL Early AM 06/25/2025 6:31 AM EDT GLUCOSE METER POC Routine 06/25/2025 6:24 AM EDT GLUCOSE METER POC Routine 06/25/2025 1:14 AM EDT GLUCOSE METER POC Routine 06/24/2025 8:07 PM EDT ECG AND WAVEFORMS - TELEMETRY Routine 06/24/2025 7:53 PM EDT GLUCOSE METER POC Routine 06/24/2025 5:10 PM EDT GLUCOSE METER POC Routine 06/24/2025 4:[address] HEAD WO CONTRAST PAULETTE 06/24/2025 2:37 PM EDT EC ECHOCARDIOGRAM LIMITED Routine 06/24/2025 12:32 PM EDT PHOSPHORUS LEVEL Routine 06/24/2025 12:25 PM EDT MAGNESIUM LEVEL Routine 06/24/2025 12:25 PM EDT GLUCOSE METER POC Routine 06/24/2025 12:16 PM EDT IP CONSULT TO MEDICAL RAILWAY SIGNALLING ENGINEER Routine 06/24/2025 11:57 AM EDT Procedure Note - LunaSpencer, HAMMER SHOP SUPERVISOR - 06/24/2025 11:46 AM EDTThis note is in progress. Images from the original note were not included. PULMONARY / CRITICAL CARE CONSULT NOTE Spencer Dre Luna, HAMMER SHOP SUPERVISOR 06/24/2025 Patient: Skyler Bautista 84 y.o. female Date of Admission: 06/23/2025 Admitting Provider: Duong Vitale MD CC: Chief Complaint Patient presents with Atrial Fibrillation a fib rvr from [employer]. they report HR of 180, per squad HR 103. Skyler Bautista is a(n)84 y.o. female is being evaluated following ICUadmission for acute hypoxic respiratory failure, seizures andbradycardia. HPI: Ms. Bautista is an 84 year old female with a PMHx significant forA-fib, PE, HFpEF, subarachnoid hemorrhage, TBI, T2DM, CKD, PVD, and recentleft AKA. [facility] for AKA withcomplaints of shortness of breath for 4 days. HR was elevated to the 180'sand she was brought to the ER. In the ER she was found to be in Afib withRVR. She was bolused with Cardizem and started on Cardizem gtt. She wasalso given Lasix IV. Work up in the ER included CTA pulmonary: No acute pulmonary embolism.Bilateral pleural effusions and dependent opacities which may representatelectasis. CXR: Findings suggestive of pulmonary edema with bilateralpleural effusions. EKG was consistent with Afib with RVR and rate in [id number]'s. Trops: 92 -> 83, K: 4.5, creatinine: 0.84. [facility]. [facility] was continued on Cardizem gtt and was startedon Coreg at night. Overnight on TCU a rapid was called due to bradycardia and hypotension.Reportedly with HR in the 20's. She was given atropine 1 mg x3. EKG showedAfib with slow ventricular response. There is question if she lost apulse, but it was able to be palpated later. She seized on arrival to theICU and was given 2 mg Ativan IV and intubated. She was started onEpinephrine gtt. She was given 5 mg Glucagon and 2 g calcium gluconate. This morning she is slightly responsive and opening eyes to voice. Notfollowing commands. Epi gtt is off and she is coming off Propofol andFentanyl gtt. PMH: Past Medical History: Diagnosis Date A-fib [...] years ago. Urinary incontinence Urinary tract infection PSH: Past Surgical History: Procedure Laterality Date ABDOMEN SURGERY ABOVE KNEE AMPUTATION Left 05/24/2025 Left Above Knee Amputation; Surgeon: Vargas Wolf MD; [facility]; Service: Vascular CARDIAC CATHETERIZATION CARDIAC SURGERY CABG/stents FOOT SURGERY Left 03/09/2025 Transmetatarsal amputation of the left foot; Surgeon: Tony Mills DPM; Location[facility]; Service: Podiatry FOOT SURGERY Left 03/17/2025 left transmetatarsal amputation revision; Surgeon: Irineo Perez DPM; Location: [facility]; Service: Podiatry HYSTERECTOMY IR ABDOMINAL AORTOGRAM SERIALOGRAM 05/10/2025 IR ABDOMINAL AORTOGRAM SERIALOGRAM 05/10/2025 Vargas Wolf MD [facility] IR ANGIOGRAM EXTREMITY LEFT 01/30/2025 IR ANGIOGRAM EXTREMITY LEFT 01/30/2025 Vargas Wolf MD [facility] IR ANGIOGRAM FEMORAL ARTERIO SHIFT 01/17/2025 IR ANGIOGRAM FEMORAL ARTERIO SHIFT 01/17/2025 Vargas Wolf MD [facility] IR ANGIOGRAM FEMORAL ARTERIO SHIFT 05/10/2025 IR ANGIOGRAM FEMORAL ARTERIO SHIFT 05/10/2025 Vargas Wolf MD [facility] IR REVAS FEM POP ART 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 01/30/2025 IR REVAS FEM POP ART 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 01/30/2025 Vargas Wolf MD [facility] IR ULTRASOUND GUIDED VASCULAR ACCESS 01/17/2025 IR ULTRASOUND GUIDED VASCULAR ACCESS 01/17/2025 Vargas Wolf MD [facility] IR ULTRASOUND GUIDED VASCULAR ACCESS 01/30/2025 IR ULTRASOUND GUIDED VASCULAR ACCESS 01/30/2025 Vargas Wolf MD [facility] IR ULTRASOUND GUIDED VASCULAR ACCESS 05/10/2025 IR ULTRASOUND GUIDED VASCULAR ACCESS 05/10/2025 Vargas Wolf MD [facility] JOINT REPLACEMENT TOE SURGERY Left 01/31/2025 Left foot hallux amputation; Surgeon: Dacia Mills DPM;Location: [facility]; Service: Podiatry FH: No family history on file. SH: Social History Socioeconomic History Marital status: Spouse name: Not on file Number of children: Not on file Years of education: Not on file Highest education level: Not on file Occupational History Not on file Tobacco Use Smoking status: Former Current packs/day: 0.00 Types: Cigarettes Quit date: 1991 Years since quittin.7 Passive exposure: Past Smokeless tobacco: Never Vaping Use Vaping status: Never Used Substance and Sexual Activity Alcohol use: Not Currently Drug use: Never Sexual activity: Not Currently Partners: Male Other Topics Concern Not on file Social History Narrative Not on file Social Drivers of Health Financial Resource Strain: Low Risk (06/23/2025) Overall Financial Resource Strain (CARDIA) Difficulty of Paying Living Expenses: Not very hard Food Insecurity: No Food Insecurity (06/23/2025) Hunger Vital Sign Worried About Running Out of Food in the Last Year: Never true Ran Out of Food in the Last Year: Never true Transportation Needs: No Transportation Needs (06/23/2025) [facility] Transportation In the past 12 months, has lack of reliable transportation kept you frommedical appointments, meetings, work or from getting things needed fordaily living?: No Physical Activity: Inactive (06/23/2025) Exercise Vital Sign Days of Exercise per Week: 0 days Minutes of Exercise per Session: 0 min Stress: No Stress Concern Present (06/23/2025) [employer] - Occupational StressQuestionnaire Feeling of Stress : Not at all Social Connections: Low Risk (10/30/2023) Received from [employer] ([place], [place], [place], [place]) Family and Community Support Help with Day to Day Activities: Not on file Feeling Lonely or Isolated: Not on file Intimate Partner Violence: Not At Risk (08/06/2024) Received from [facility] Humiliation, Afraid, Rape, and Kick questionnaire Fear of Current or Ex-Partner: No Emotionally Abused: No Physically Abused: No Sexually Abused: No Housing Stability: Low Risk (08/06/2024) Received from [facility] Housing Stability Vital Sign Unable to Pay for Housing in the Last Year: No Number of Places Lived in the Last Year: 1 Unstable Housing in the Last Year: No Allergies: Allergies Allergen Reactions Lidocaine Rash Nitrofurantoin Rash Morphine Other (See Comments) Medications: fentaNYL (SUBLIMAZE) infusion orderable 1 mcg/kg/hr (06/24/25700) propofol 10 mcg/kg/min (06/24/25700) acetaminophen 1,000 mg Oral 3 times per day atorvastatin 40 mg Oral Nightly calcium carbonate 1,000 mg Oral Daily ophthalmic gel (artificial tears) 1 Drop Both Eyes 6 times per day cyanocobalamin 1,000 mcg Oral Daily [START ON 06/25/2025] fUROsemide 40 mg Intravenous Daily Insulin Calculator (CONTINUOUS PICKLING LINE PICKLER) - FSBS (Correction Only) Intake Input 1 EachMISCELLANEOUS 6 times per day And insulin aspart (NovoLOG) - Correction Factor PATIENT-SPECIFIC 0-40 UnitsSubcutaneous 6 times per day latanoprost 1 Drop Ophthalmic Nightly LORazepam mupirocin Nasal BID nortriptyline 10 mg Oral Nightly pantoprazole (PROTONIX) 40 mg Intravenous BID Or pantoprazole 40 mg Oral BID polyethylene glycol 17 g Enteral BID ranolazine 1,000 mg Oral Daily sodium chloride 0.9% 10 mL Intravenous 3 times per day dextrose, fentaNYL, glucagon AND sterile water, LORazepam, melatonin,ondansetron OR ondansetron, senna, sodium chloride 0.9%, sodiumchloride 0.9%, sodium chloride 0.9%, sodium chloride 0.9% Medications Prior to Admission Medication Sig Dispense Refill Last Dose/Taking acetaminophen (TYLENOL) 500 mg Oral Tablet Take 1,000 mg by mouth every 6hours. Taking ALPRAZolam (XANAX) 0.5 mg Oral Tablet Take 0.5 mg by mouth nightly. giveone tablet by mouth one time a day for anxiety disorder, unspecifiedIndications: anxious 06/22/2025 Bedtime atorvastatin (LIPITOR) 40 mg Oral Tablet Take 40 mg by mouth nightly.06/22/2025 Calcium Carbonate (ANTACID ULTRA STRENGTH) 400 mg calcium (1,000 mg) OralTablet, Chewable Take 1,000 mg by mouth daily. 06/22/2025 carvediloL (COREG) 25 mg Oral Tablet Take 1 Tablet by mouth 2 times daily(with meals). 60 Tablet 0 06/22/2025 cyanocobalamin 1,000 mcg Oral Tablet Take 1,000 mcg by mouth daily.06/22/2025 dorzolamide-timoloL (COSOPT) 22.3-6.8 mg/mL Opht Drops Place 1 Drop intoboth eyes nightly. instill 1 drop in both eyes at bedtime for glaucoma06/22/2025 Bedtime ertapenem sodium (ERTAPENEM INJ) Inject 1 g into the muscle daily. Ertapenem sodium injection solution reconstituted 1gm, inject 1 gmintramuscularly one time a day for UTI for seven days 06/22/2025 fUROsemide (LASIX) 40 mg Oral Tablet Take 1 Tablet by mouth daily asneeded for Other (edema, SOB). 30 Tablet 0 06/22/2025 gabapentin (NEURONTIN) 300 mg Oral Capsule Take 300 mg by mouth daily.Give 1 capsule by mouth one time a day for POLYNEUROPATHY 06/22/2025 latanoprost (XALATAN) 0.005 % Opht Drops Apply 1 Drop to eye nightly. 2.5mL 0 Taking lidocaine (ASPERCREME) 4 % Top Adhesive Patch, Medicated Place 1 Patchonto the skin daily. 15 Patch 0 Taking nalOXone (NARCAN) 4 mg/actuation Nasl [place], Non-Aerosol 0.1 mL by Nasalroute as needed for Opioid Reversal. [place] the contents of one device(0.1mL) into one nostril upon signs of opioid overdose. Call 911. Mayrepeat dose in other nostril if no response within 2-3 minutes. 1 Each 0Taking nortriptyline (PAMELOR) 10 mg Oral Capsule Take 1 Capsule by mouthnightly. 15 Capsule 0 Taking oxyCODONE (ROXICODONE) 5 mg Oral Tablet Take 1-2 Tablets by mouth every 4hours as needed for Acute Pain (R52). 12 Tablet 0 Taking pantoprazole (PROTONIX) 40 mg Oral Tablet, Delayed Release (E.C.) Take 1Tablet by mouth 2 times daily. 60 Tablet 0 06/22/2025 polyethylene glycol (GLYCOLAX, MIRALAX) 17 gram Oral Powder in PacketTake 17 g by mouth daily. 06/22/2025 ranolazine (RANEXA) 500 mg Oral Tablet Sustained Release 12 hr Take 1,000mg by mouth daily. 06/22/2025 Morning ROS Unable to be assessed due to patient's current status. PHYSICAL EXAMINATION BP 125/62 Pulse 69 Temp 97.5 F (36.4 C) (Oral) Resp 17 Wt122 lb 12.7 oz (55.7 kg) SpO2 98% BMI 22.46 kg/m Temp (24hrs),Av.3 F (36.3 C), Min:97.1 F (36.2 C), Max:97.5 F (36.4 C) Date 06/24/25 0700 - 06/25/25 0659 Shift 2600-1912 8003-2405 9949-5386 24 Hour Total INTAKE I.V.(mL/kg/hr) 4.5 4.5 IV Piggyback 66.6 66.6 Shift Total(mL/kg) 71.1(1.3) 71.1(1.3) OUTPUT Shift Total(mL/kg) Weight (kg) 55.7 55.7 55.7 55.7 Body mass index is 22.46 kg/m . Constitutional: Appears acutely ill. No distress. HEENT: Mouth/Throat: ETT Oropharynx is clear and moist. Eyes: Pupils areequal, round, and reactive to light. Cardiovascular: Bradycardic, irregular rhythm and intact distal pulses. Nomurmur heard. Pulmonary/Chest: Effort normal. No respiratory distress. No wheezes. GI/Abdominal: Soft. Bowel sounds active, no distension or tenderness Genitourinary: Voids Extremities: No edema, LLE amputation without erythema or drainage Neurological: Intubated/Sedated, RASS -1, GCS: 9. Following commands BUE. Skin: Limited due to patient not being fully undressed. Skin is warm. Norash noted on exposed areas of skin. MECHANICAL VENTILATION (last filed) Vent Mode: A/C Set Rate: 16 br/min Vt Set: 400 PEEP: 8 cmH20 Peak Airway Pressure: 20 cmH20 Plateau Pressure (Ppl): 13 cmH20 Artificial Airway Size: 7.5 ETT SUPPLEMENTAL O2 & NIV (last filed) O2 Device: Ventilator O2 Flow Rate (L/min): 2 lpm FiO2 (%): 35 % Labs: ABG Recent Labs 06/24/2522406/24/25 0526 PH 7.38 7.45 PCO2 38 31* PO2 56* 86 O2SAT 86.7* 97.7 INSPIREDO2 70 50 Electrolytes Lab Results Component Value Date NA 136 06/24/2025 K 4.1 06/24/2025 CL 103 06/24/2025 CO2 21 (L) 06/24/2025 BUN 16 06/24/2025 CREATININE 1.17 06/24/2025 Lab Results Component Value Date GLU 229 (H) 06/24/2025 CBC Lab Results Component Value Date WBC 4.5 06/24/2025 HGB 8.3 (L) 06/24/2025 HCT 25.0 (L) 06/24/2025 PLT 83 (L) 06/24/2025 INR 1.32 (H) 06/23/2025 PTT 37.0 (H) 06/23/2025 Other Labs Recent Labs 06/23/25 1328 06/24/25 0510 BNP 7,449* 7,992* ALT -- 17 AST -- 31 ALKPHOS -- 149* PROT -- 6.5 Antiobiotics (day): N/A Radiology: EK EKG 12 LEAD Result Date: 06/24/2025 [facility] Date:2025-06-24 Pat Name: SKYLER BAUTISTA Department: DEPIDPatient ID: [id number] Room: [facility] Gender:Female Senior International Tax Manager: Reza : [id number] By: DONNIE BELLCIARATamy Order Number: [id number] MD: Sukh GarnerMeasurements Intervals [place] Rate:54 P: 0 TN: 0QRS: 39 QRSD: 89 T:0 QT: 462 QTc:438Interpretive Statements ATRIAL FIBRILLATION WITH SLOW VENTRICULAR RESPONSEWITH ABERRANT CONDUCTION OR VENTRICULAR PREMATURE COMPLEXES LOW QRSVOLTAGE IN EXTREMITY LEADS [QRS DEFLECTION < 0.5 mV IN LIMB LEADS]NONSPECIFIC ST/T WAVE ABNORMALITY RATE HAS MARKEDLY DECREASED SINCE PRIORElectronically Signed On 06-24-2025 08:09:24 EDT by Sukh Garner XR CHEST AP PORTABLE Result Date: 06/24/2025 CLINICAL HISTORY: -CVC left IJ placement. COMPARISON: Earlier today.TECHNIQUE: XR CHEST AP PORTABLE on 06/24/2025 4:17 AM. FINDINGS: The tip andsidehole of the enteric tube are in the gastric body. The tip of the leftjugular central line projects over the expected region of the lower SVC.There is no pneumothorax or additional change. Positioning of the lines and tubes as described without pneumothorax orchange from earlier today Note: Radiology results need to be interpretedwithin a comprehensive clinical context. If you have questions about theradiology report, please contact the office of the ordering clinician. XR CHEST AP PORTABLE Result Date: 06/24/2025 CLINICAL HISTORY: -confirm ET tube placement. COMPARISON: Earlier today.TECHNIQUE: XR CHEST AP PORTABLE on 06/24/2025 12:59 AM. FINDINGS: The tip ofthe endotracheal tube is 4.8 cm above the nancy. The enteric tube iscoiled in the upper esophagus and should be removed and replaced. There isno additional change. 1. Positioning of the endotracheal tube as described. 2. Malpositionedenteric tube which should be removed and replaced Note: Radiology resultsneed to be interpreted within a comprehensive clinical context. If youhave questions about the radiology report, please contact the office ofthe ordering clinician. XR CHEST AP PORTABLE Result Date: 06/24/2025 CLINICAL HISTORY: -pulmonary edema. COMPARISON: Yesterday. TECHNIQUE: XRCHEST AP PORTABLE on 06/24/2025 12:26 AM. FINDINGS: Pulmonary edema isworsening and there are enlarging pleural effusions without apneumothorax. There is atelectasis at the lung bases. The heart isenlarged. Worsening pulmonary edema with enlarging pleural effusions Note: Radiologyresults need to be interpreted within a comprehensive clinical context.If you have questions about the radiology report, please contact theoffice of the ordering clinician. EK EKG [address] [facility]:2025-[facility]-23 Pat Name: SKYLER BAUTISTA Department: DEPIDPatient ID: [id number] Room: W428 Gender:Female Senior International Tax Manager: Femi : [id number] By: STEPHAN Earl Order Number: [id number] MD: Jaycob Sandoval MeasurementsIntervals [place] Rate: 139P: 0 TN: 0QRS: 64 QRSD: 82 T: 26QT: 286 QTc: 436InterpretiveStatements ATRIAL FIBRILLATION WITH RAPID VENTRICULAR RESPONSE POSSIBLEANTEROSEPTAL MYOCARDIAL INFARCTION, PROBABLY OLD Electronically Signed [id number] 19:29:47 EDT by Jaycob Sandoval CT ANGIOGRAM PULMONARY W CONTRAST Result Date: 06/23/2025 CT PULMONARY ANGIOGRAM, 06/23/2025 2:57 PM CLINICAL HISTORY: -Short ofbreath, elevated D-dimer, atrial fibrillation. COMPARISON: None.TECHNIQUE: PE protocol CT angiogram of the chest using Isovue 370 IVcontrast as recorded in EPIC. 2-D multiplanar reconstructions and 3-D MIPreconstructions reviewed. Dose 1 : CT DLP Total : 109.65 mGycm DLP SpiralMax : 96.21 mGycm Maximum CTDI Vol : 9.53 mGy FINDINGS: Adequatevisualization of the pulmonary arteries to the segmental/subsegmentallevel. No acute pulmonary embolism. No aortic arch aneurysm. Nopneumothorax. Small left and [id number] right pleural effusions.Emphysema. Opacities dependently in the lower lobes. Impression deformityalong the superior endplate of L2 and inferior endplate of T6. Somesclerosis suggesting these are likely remote. Coronary arterycalcification: Severe. No acute pulmonary embolism. Bilateral pleural effusions and dependentopacities which may represent atelectasis - Note: Radiology results needto be interpreted within a comprehensive clinical context. If you havequestions about the radiology report, please contact the office of theordering clinician. XR CHEST AP PORTABLE Result Date: 06/23/2025 XR CHEST AP PORTABLE, 06/23/2025 1:41 PM CLINICAL HISTORY: -sobCOMPARISON: 06/09/2025. PROCEDURE COMMENTS: AP portable technique.FINDINGS: Support devices: No visible support devices. Heart andmediastinum: Borderline-enlarged likely related to hypoexpansion andportable technique. LUNGS: Patchy bilateral airspace opacities withvascular indistinctness and bilateral pleural effusions. No pneumothorax. Findings suggestive of pulmonary edema with bilateral pleural effusions. -Note: Radiology results need to be interpreted within a comprehensiveclinical context. If you have questions about the radiology report,please contact the office of the ordering clinician. 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 HOB > 30 degrees, lung protective ventsettings. Titrate FiO2 >/= 90%. Vent bundle/sedation ordered. Turn off Fentanyl and Propofol to assessmental status. Goal RASS 0,-1 Will hold off on SBT today Ceribell without seizure burden overnight. Neurology consulted. Will awaittheir input for CT head vs MRI. Coreg held and Cardizem stopped. Cardiology consulted. Epi gtt off and HRimproved now. Hypotension likely 2/2 sedation. Goal MAP >/= 65. Plan for Levophed ifneeded for MAP goal. Monitor I/O. Bladder scan Q4H. Hold AC due to history of subarachnoid hemorrhage. Goal blood glucose 140-180 mg/dL. Q4H CCI Monitor and replace electrolytes per ICU protocol. DVT prophylaxis: SCD's GI prophylaxis: Protonix CODE status: DNR Limited [employer] critical care time: 17 minutes Spencer Luna APRN SCANNED EKG 06/24/2025 10:55 AM EDT IP CONSULT TO NUTRITION Routine 06/24/2025 9:17 AM EDT ADMIT Routine 06/24/2025 8:40 AM EDT GLUCOSE METER POC Routine 06/24/2025 8:15 AM EDT BLOOD GAS ARTERIAL Routine 06/24/2025 5:26 AM EDT TSH REFLEX TO FT4 Add-On 06/24/2025 5:10 AM EDT CBC Early AM 06/24/2025 5:10 AM EDT TRIGLYCERIDES Routine 06/24/2025 5:10 AM EDT T4, FREE (THYROXINE) Routine 06/24/2025 5:10 AM EDT NT PROBNP Early AM 06/24/2025 5:10 AM EDT COMPREHENSIVE METABOLIC PANEL Early AM 06/24/2025 5:10 AM EDT GLUCOSE METER POC Routine 06/24/2025 5:05 AM EDT XR CHEST AP PORTABLE STAT 06/24/2025 4:17 AM EDT IP CONSULT TO NEUROLOGY Routine 06/24/2025 3:36 AM EDT Procedure Note - Rusty Sawyer MD - 06/24/2025 12:52 PM EDTThis note is in progress. Neurology Consult Note Admit date: 06/23/2025 Admitting diagnosis: Atrial fibrillation with RVR (HCC) [I48.91] Paroxysmal atrial fibrillation (HCC) [I48.0] Today's date: 06/24/2025 Current length of stay: 0 day(s) Impression and Recommendations Skyler Bautista is a 84 y.o. female with a history of Afib, CAD, HF, HTN,HLD, PVD, CKD, DANTE, Stroke whom I am seeing in neurologic consultation atthe request of Duong Vitale MD for evaluation of Seizure. Seizure History of Left fontal hemorrhagic contusion Encephalopathy She had a seizure immediately following a possible cardiac arrest in thesetting of bradykinesia and hypotension. She has a history of leftfrontal contusion after a fall while on Warfarin, which likely lowers herthreshold for seizure. Her seizure was provoked but with this old lesionit would be reasonable to treat with Keppra. Her mental status isreduced. We should to HCT now and if not improved by tomorrow should toMRI. Her exam does not demonstrate a focal deficit. Recommendations: -HCT now -Start Keppra 750 mg BID Rusty Sawyer MD Neurology 12:52 PM 06/24/25 Thank you for allowing me to participate in the care of Skyler Bautista.Please do no hesitate to contact me with any further questions orconcerns. HPI: This is a 84 y.o. female with a history of Afib, CAD, HF, HTN, HLD,PVD, CKD, DANTE, Stroke whom I am seeing in neurologic consultation at [facility] of Duong Vitale MD for evaluation of Seizure. She presented to the ED on 06/23 for SOB. She was found to be in Afib withRVR. She had hypotension and bradycardia overnight while on Cardizemdrip. When being evaluated for the hypotension she had a period ofunresponsiveness. Pulse may have been lost, PEA on monitor. She had aseizure in the ICU overnight. She received 2 mg of Ativan. She wasintubated. In January 2024 she had a fall while on Warfarin. She had a leftfrontotemporal hemorrhagic contusion and small SDH. Past Medical History: Diagnosis Date A-fib (HCC) [...] Urinary incontinence Urinary tract infection Active Hospital Problems Diagnosis *Atrial fibrillation with RVR (HCC) Seizure (HCC) Respiratory arrest (HCC) Atrial fibrillation with slow ventricular response (HCC) Acute pulmonary edema (HCC) Anemia in other chronic diseases classified elsewhere Stage 3a chronic kidney disease (HCC) Chest pain, unspecified type // Elevated troponin Acute on chronic heart failure with preserved ejection fraction (HCC) Hx of subarachnoid hemorrhage // history of traumatic brain injury -hemorrhagic cerebral contusion History of pulmonary embolus (PE) Paroxysmal atrial fibrillation (HCC) Type 2 diabetes mellitus, without long-term current use of insulin (HCC) Hypertension associated with diabetes (HCC) No current facility-administered medications on file prior to encounter. Current Outpatient Medications on File Prior to Encounter Medication Sig Dispense Refill acetaminophen (TYLENOL) 500 mg Oral Tablet Take 1,000 mg by mouth every 6hours. ALPRAZolam (XANAX) 0.5 mg Oral Tablet Take 0.5 mg by mouth nightly. giveone tablet by mouth one time a day for anxiety disorder, unspecifiedIndications: anxious atorvastatin (LIPITOR) 40 mg Oral Tablet Take 40 mg by mouth nightly. Calcium Carbonate (ANTACID ULTRA STRENGTH) 400 mg calcium (1,000 mg) OralTablet, Chewable Take 1,000 mg by mouth daily. carvediloL (COREG) 25 mg Oral Tablet Take 1 Tablet by mouth 2 times daily(with meals). 60 Tablet 0 cyanocobalamin 1,000 mcg Oral Tablet Take 1,000 mcg by mouth daily. dorzolamide-timoloL (COSOPT) 22.3-6.8 mg/mL Opht Drops Place 1 Drop intoboth eyes nightly. instill 1 drop in both eyes at bedtime for glaucoma ertapenem sodium (ERTAPENEM INJ) Inject 1 g into the muscle daily. Ertapenem sodium injection solution reconstituted 1gm, inject 1 gmintramuscularly one time a day for UTI for seven days fUROsemide (LASIX) 40 mg Oral Tablet Take 1 Tablet by mouth daily asneeded for Other (edema, SOB). 30 Tablet 0 gabapentin (NEURONTIN) 300 mg Oral Capsule Take 300 mg by mouth daily.Give 1 capsule by mouth one time a day for POLYNEUROPATHY latanoprost (XALATAN) 0.005 % Opht Drops Apply 1 Drop to eye nightly. 2.5mL 0 lidocaine (ASPERCREME) 4 % Top Adhesive Patch, Medicated Place 1 Patchonto the skin daily. 15 Patch 0 nalOXone (NARCAN) 4 mg/actuation Nasl [place], Non-Aerosol 0.1 mL by Nasalroute as needed for Opioid Reversal. [place] the contents of one device(0.1mL) into one nostril upon signs of opioid overdose. Call 911. Mayrepeat dose in other nostril if no response within 2-3 minutes. 1 Each 0 nortriptyline (PAMELOR) 10 mg Oral Capsule Take 1 Capsule by mouthnightly. 15 Capsule 0 oxyCODONE (ROXICODONE) 5 mg Oral Tablet Take 1-2 Tablets by mouth every 4hours as needed for Acute Pain (R52). 12 Tablet 0 pantoprazole (PROTONIX) 40 mg Oral Tablet, Delayed Release (E.C.) Take 1Tablet by mouth 2 times daily. 60 Tablet 0 polyethylene glycol (GLYCOLAX, MIRALAX) 17 gram Oral Powder in PacketTake 17 g by mouth daily. ranolazine (RANEXA) 500 mg Oral Tablet Sustained Release 12 hr Take 1,000mg by mouth daily. Allergies Allergen Reactions Lidocaine Rash Nitrofurantoin Rash Morphine Other (See Comments) Physical Examination: Patient Vitals for the past 24 hrs: BP Temp Temp src Pulse Resp SpO2 Weight 06/24/25 1200 128/75 -- -- 72 17 98 % -- 06/24/25 1125 -- -- -- 69 17 98 % -- 06/24/25 1100 125/62 -- -- 59 16 98 % -- 06/24/25 1000 90/50 -- -- 56 16 97 % -- 06/24/25 0900 111/56 -- -- 61 14 99 % -- 06/24/25 0845 97/46 -- -- 56 16 99 % -- 06/24/25 0800 99/45 -- -- 56 16 99 % -- 06/24/25 0742 103/50 -- -- 58 16 99 % -- 06/24/25 0700 93/49 -- -- 55 16 100 % -- 06/24/25 0600 118/60 -- -- 64 15 100 % -- 06/24/25 0556 -- -- -- -- -- -- 122 lb 12.7 oz (55.7 kg) 06/24/25 0500 108/61 97.5 F (36.4 C) Oral 62 20 99 % -- 06/24/25 0458 -- -- -- 60 20 100 % -- 06/24/25 0400 123/62 -- -- 64 20 100 % -- 06/24/25 0300 123/61 -- -- 67 21 99 % -- 06/24/25 0200 101/50 -- -- 64 20 100 % -- 06/24/25 0100 122/69 97.5 F (36.4 C) Oral 50 20 98 % -- 06/24/25 0045 -- -- -- 50 20 100 % -- 06/24/25 0044 -- -- -- -- -- -- 126 lb 1.7 oz (57.2 kg) 06/24/25 0042 96/41 -- -- (!) 44 -- 98 % -- 06/24/25 0040 94/51 -- -- (!) 44 -- 96 % -- 06/24/25 0034 92/65 -- -- -- -- 100 % -- 06/24/25 0024 -- -- -- (!) 24 -- -- -- 06/24/25 0008 (!) 65/31 -- -- (!) 28 -- -- -- 06/24/25 0005 (!) 61/47 -- -- (!) 36 10 93 % -- 06/23/25 2300 (!) 82/34 -- -- 78 -- 95 % -- 06/23/25 2108 100/44 97.1 F (36.2 C) Oral 53 16 95 % -- 06/23/25 1710 -- -- -- 68 -- -- -- 06/23/25 1646 135/68 97.2 F (36.2 C) Axillary 54 14 91 % -- 06/23/25 1600 -- -- -- 82 14 92 % -- 06/23/25 1530 -- -- -- 83 23 99 % -- 06/23/25 1525 140/78 -- -- 79 14 99 % -- 06/23/25 1430 -- -- -- 77 14 96 % -- 06/23/25 1400 -- -- -- 74 14 95 % -- 06/23/25 1355 121/70 -- -- 86 24 93 % -- 06/23/25 1330 (!) 169/152 -- -- 129 25 97 % -- 06/23/25 1316 (!) 163/101 -- -- 121 16 98 % -- General Exam: Gen: Well developed, well nourished intubated womn. Neck: Supple Pulm: On vent. CV: Normal rate and rhythm. MSK: No bruising, swelling, erythema. Sedation: none Neuro Exam: Mental Status: Awake, eyes are open, regards me when I speak to her but requires frequentstimulation. Does not follow any command. Cranial Reflexes: Pupils, Eye Movements: pupils react to light but with evidence of lenssurgery that produces mild anisocoria. She crosses midline to regardme. Motor: Tone: normal tone RUE: purposeful movements, did not give thumbs up to command RLE: purposeful movements, did not wiggle toes up to command LUE: purposeful movements, did not give thumbs up to command LLE: amputated Reflexes: 1+ throught, toe downgoing on right, left leg amputated I have personally reviewed the following pertinent results: -Cr nml -LFTs nml -CBC with anemia, megaloblastic BLOOD GAS ARTERIAL PAULETTE 06/24/2025 2:25 AM EDT XR CHEST AP PORTABLE STAT 06/24/2025 12:59 AM EDT XR CHEST AP PORTABLE STAT 06/24/2025 12:26 AM EDT EK EKG 12 LEAD STAT 06/24/2025 12:05 AM EDT GLUCOSE METER POC Routine 06/24/2025 12:04 AM EDT ECG AND WAVEFORMS - TELEMETRY Routine 06/23/2025 11:59 PM EDT ECG AND WAVEFORMS - TELEMETRY Routine 06/23/2025 11:59 PM EDT ECG AND WAVEFORMS - TELEMETRY Routine 06/23/2025 11:59 PM EDT ECG AND WAVEFORMS - TELEMETRY Routine 06/23/2025 11:57 PM EDT ECG AND WAVEFORMS - TELEMETRY Routine 06/23/2025 11:55 PM EDT ECG AND WAVEFORMS - TELEMETRY Routine 06/23/2025 9:30 PM EDT ECG AND WAVEFORMS - TELEMETRY Routine 06/23/2025 9:16 PM EDT ECG AND WAVEFORMS - TELEMETRY Routine 06/23/2025 8:38 PM EDT ECG AND WAVEFORMS - TELEMETRY Routine 06/23/2025 8:32 PM EDT ECG AND WAVEFORMS - TELEMETRY Routine 06/23/2025 8:25 PM EDT ECG AND WAVEFORMS - TELEMETRY Routine 06/23/2025 7:59 PM EDT ECG AND WAVEFORMS - TELEMETRY Routine 06/23/2025 7:00 PM EDT ECG AND WAVEFORMS - TELEMETRY Routine 06/23/2025 6:53 PM EDT URINALYSIS REFLEX Routine 06/23/2025 5:11 PM EDT UA W/REFLEX TO CULTURE Routine 06/23/2025 5:11 PM EDT EXTRA HUITRON URINE CX Routine 06/23/2025 5:11 PM EDT IP CONSULT TO VASCULAR SURGERY Routine 06/23/2025 4:52 PM EDT Procedure Note - Miryam Guzman APRN - 06/24/2025 2:11 PM EDTThis note is in progress. Consult received for follow up and staple removal Sophie ZAPIEN. She is currentlycritically ill in ICU, intubated and sedated. Will assess Sophie ZAPIEN stump forstaple removal once medically stable/improved. Please call with any additional questions or concerns. Miryam Guzman NP Vascular Surgery ECG AND WAVEFORMS - TELEMETRY Routine 06/23/2025 4:41 PM EDT TROPONIN-T HIGH SENSITIVITY 2HR Timed 06/23/2025 4:11 PM EDT IP CONSULT TO CARDIOLOGY Routine 06/23/2025 3:41 PM EDT Procedure Note - Sukh Garner DO - 06/24/2025 10:18 AM EDTThis note is in progress. Heart & Vascular Consult Note PATIENT: Skyler Bautista 0 PCP: No Pcp, Per Patient I would like to thank Duong Vitale MD for requesting me to see Randy for cardiac consultation for bradycardia. History provided by: EMR, son History limited by: intubated and sedated History of Present Illness: Skyler Bautista is a 84 y.o. 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 In the ED she was noted to be in afib withRVR. Started on diltiazem bolus and gtt. CPTA negative for PE butdemonstrated bilateral pleural effusions and dependent opacities which mayrepresent atelectasis. Received IV diuresis. She was admitted to TCU forfurther management. RR called due to bradycardia and hypotension. Heartrate as low as 20s and she received atropine. EKG afib with SVR. Possibleloss of pulse. Some concern for seizure activity. She was intubated andbriefly required dopamine and epi gtt. EKG ATRIAL FIBRILLATION WITH SLOW VENTRICULAR RESPONSE WITH ABERRANTCONDUCTION OR VENTRICULAR PREMATURE COMPLEXES LOW QRS VOLTAGE IN EXTREMITY LEADS [QRS DEFLECTION < 0.5 mV IN LIMBLEADS] NONSPECIFIC ST/T WAVE ABNORMALITY RATE HAS MARKEDLY DECREASED SINCE PRIOR Troponin: 92, 83 BNP: 7449 --> 7992 Echocardiogram: 05/27/2025 Conclusions * Left ventricular chamber dimension is [...] regurgitation. * There is trivial pericardial effusion. Stress: 01/11/2025 Conclusions * No significant reversible perfusion defect. * Normal left ventricular size. * Post stress left ventricular ejection fraction is normal, 63 %. * Abnormal septal motion likely due to history of CABG. * Transient Ischemic Dilation is normal. Family History- No family history on file. Social History- Social History Tobacco Use Smoking status: Former Current packs/day: 0.00 Types: Cigarettes Quit date: 1991 Years since quittin.7 Passive exposure: Past Smokeless tobacco: Never Substance Use Topics Alcohol use: Not Currently Review Of Systems: Review of Systems Unable to perform ROS: Intubated Past Medical History Past Medical History: Diagnosis Date A-fib [...] cpap, but is not using. Stroke ([facility]) pt's states around 3 years ago. 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 03/23/24 Taking Provider, Historical ALPRAZolam (XANAX) 0.5 mg Oral Tablet Take 0.5 mg by mouth nightly. giveone tablet by mouth one time a day for anxiety disorder, unspecifiedIndications: anxious 06/22/2025 Bedtime Provider, Historical atorvastatin (LIPITOR) 40 mg Oral Tablet Take 40 mg by mouth nightly.06/22/2025 Provider, Historical Calcium Carbonate (ANTACID ULTRA STRENGTH) 400 mg calcium (1,000 mg) OralTablet, Chewable Take 1,000 mg by mouth daily. 03/23/24 06/22/2025 Provider,Historical carvediloL (COREG) 25 mg Oral Tablet Take 1 Tablet by mouth 2 times daily(with meals). 06/10/25 06/22/2025 Trino Montiel MD cyanocobalamin 1,000 mcg Oral Tablet Take 1,000 mcg by mouth daily.06/22/2025 Provider, Historical dorzolamide-timoloL (COSOPT) 22.3-6.8 mg/mL Opht Drops Place 1 Drop intoboth eyes nightly. instill 1 drop in both eyes at bedtime for glaucoma06/22/2025 Bedtime Provider, Historical ertapenem sodium (ERTAPENEM INJ) Inject 1 g into the muscle daily. Ertapenem sodium injection solution reconstituted 1gm, inject 1 gmintramuscularly one time a day for UTI for seven days 06/18/25 Provider, Historical fUROsemide (LASIX) 40 mg Oral Tablet Take 1 Tablet by mouth daily asneeded for Other (edema, SOB). 06/10/25 06/22/2025 Trino Montiel MD gabapentin (NEURONTIN) 300 mg Oral Capsule Take 300 mg by mouth daily.Give 1 capsule by mouth one time a day for POLYNEUROPATHY Provider, Historical latanoprost (XALATAN) 0.005 % Opht Drops Apply 1 Drop to eye nightly.06/10/25 Taking Trino Montiel MD lidocaine (ASPERCREME) 4 % Top Adhesive Patch, Medicated Place 1 Patchonto the skin daily. 06/11/25 Taking Trino Montiel MD nalOXone (NARCAN) 4 mg/actuation Nasl [place], Non-Aerosol 0.1 mL by Nasalroute as needed for Opioid Reversal. [place] the contents of one device(0.1mL) into one nostril upon signs of opioid overdose. Call 911. Mayrepeat dose in other nostril if no response within 2-3 minutes. 02/04/25Taking Flaco Caban MD nortriptyline (PAMELOR) 10 mg Oral Capsule Take 1 Capsule by mouthnightly. 06/10/25 Taking Trino Montiel MD oxyCODONE (ROXICODONE) 5 mg Oral Tablet Take 1-2 Tablets by mouth every 4hours as needed for Acute Pain (R52). 06/10/25 Taking Trino Montiel MD pantoprazole (PROTONIX) 40 mg Oral Tablet, Delayed Release (E.C.) Take 1Tablet by mouth 2 times daily. 06/10/25 06/22/2025 Trino Montiel MD polyethylene glycol (GLYCOLAX, MIRALAX) 17 gram Oral Powder in Packet Take17 g by mouth daily. 01/27/24 06/22/2025 Provider, Historical ranolazine (RANEXA) 500 mg Oral Tablet Sustained Release 12 hr Take 1,000mg by mouth daily. 12/25/18 06/22/2025 Morning Provider, Historical Inpatient Medications: acetaminophen 1,000 mg Oral 3 times per day atorvastatin 40 mg Oral Nightly calcium carbonate 1,000 mg Oral Daily ophthalmic gel (artificial tears) 1 Drop Both Eyes 6 times per day cyanocobalamin 1,000 mcg Oral Daily fUROsemide 40 mg Intravenous BID Diuretic Insulin Calculator (CONTINUOUS PICKLING LINE PICKLER) - FSBS (Correction Only) Intake Input 1 EachMISCELLANEOUS 6 times per day And insulin aspart (NovoLOG) - Correction Factor PATIENT-SPECIFIC 0-40 UnitsSubcutaneous 6 times per day latanoprost 1 Drop Ophthalmic Nightly LORazepam mupirocin Nasal BID nortriptyline 10 mg Oral Nightly pantoprazole (PROTONIX) 40 mg Intravenous BID Or pantoprazole 40 mg Oral BID polyethylene glycol 17 g Enteral BID ranolazine 1,000 mg Oral Daily sodium chloride 0.9% 10 mL Intravenous 3 times per day fentaNYL (SUBLIMAZE) infusion orderable 1 mcg/kg/hr (06/24/25 0701) propofol 10 mcg/kg/min (06/24/25 0701) Past Surgical History Past Surgical History: Procedure Laterality Date ABDOMEN SURGERY ABOVE KNEE AMPUTATION Left 05/24/2025 Left Above Knee Amputation; Surgeon: Vargas Wolf MD; Location:[facility]; Service: Vascular CARDIAC CATHETERIZATION CARDIAC SURGERY CABG/stents FOOT SURGERY Left 03/09/2025 Transmetatarsal amputation of the left foot; Surgeon: Tony Mills DPM; Location: [facility]; Service: Podiatry FOOT SURGERY Left 03/17/2025 left transmetatarsal amputation revision; Surgeon: Irineo Perez DPM; Location: [facility]; Service: Podiatry HYSTERECTOMY IR ABDOMINAL AORTOGRAM SERIALOGRAM 05/10/2025 IR ABDOMINAL AORTOGRAM SERIALOGRAM 05/10/2025 Vargas Wolf MD [facility] IR ANGIOGRAM EXTREMITY LEFT 01/30/2025 IR ANGIOGRAM EXTREMITY LEFT 01/30/2025 Vargas Wolf MD [facility] IR ANGIOGRAM FEMORAL ARTERIO SHIFT 01/17/2025 IR ANGIOGRAM FEMORAL ARTERIO SHIFT 01/17/2025 Vargas Wolf MD [facility] IR ANGIOGRAM FEMORAL ARTERIO SHIFT 05/10/2025 IR ANGIOGRAM FEMORAL ARTERIO SHIFT 05/10/2025 Vargas Wolf MD [facility] IR REVAS FEM POP ART 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 01/30/2025 IR REVAS FEM POP ART 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 01/30/2025 Vargas Wolf MD [facility] IR ULTRASOUND GUIDED VASCULAR ACCESS 01/17/2025 IR ULTRASOUND GUIDED VASCULAR ACCESS 01/17/2025 Vargas Wolf MD [place] IR ULTRASOUND GUIDED VASCULAR ACCESS 01/30/2025 IR ULTRASOUND GUIDED VASCULAR ACCESS 01/30/2025 Vargas Wolf MD [facility] IR ULTRASOUND GUIDED VASCULAR ACCESS 05/10/2025 IR ULTRASOUND GUIDED VASCULAR ACCESS 05/10/2025 Vargas Wolf MD [facility] JOINT REPLACEMENT TOE SURGERY Left 01/31/2025 Left foot hallux amputation; Surgeon: Dacia Mills DPM;Location: [facility]; Service: Podiatry Allergy Allergies Allergen Reactions Lidocaine Rash Nitrofurantoin Rash Morphine Other (See Comments) Patient Active Problem List Diagnosis Coronary arteriosclerosis in [place] artery // Hx of CABG Closed nondisplaced intertrochanteric fracture of right femur withroutine healing Fall History of pulmonary embolus (PE) Mixed hyperlipidemia Paroxysmal atrial fibrillation (HCC) Hypertension associated with diabetes (HCC) Acute on chronic heart failure with preserved ejection fraction (HCC) Hx of CABG Hx of subarachnoid hemorrhage // history of traumatic brain injury -hemorrhagic cerebral contusion Hx of subdural hemorrhage Macrocytosis Debility Hyperkalemia Gastroesophageal reflux disease without esophagitis Mood disorder Primary open angle glaucoma (POAG) of both eyes, severe stage Chest pain, unspecified type // Elevated troponin Great toe pain, left Left leg pain PAD (peripheral artery disease) Elevated troponin Shortness of breath Preoperative cardiovascular examination Carotid stenosis, symptomatic w/o infarct, bilateral Cervical disc disease Cervical spondylosis without myelopathy Diverticulosis Emphysema lung (HCC) Focal hemorrhagic contusion of cerebrum (HCC) Degenerative arthritis Irritable bowel syndrome DANTE (obstructive sleep apnea) Peripheral neuropathy Secondary open-angle glaucoma of right eye, severe stage Splenic lesion Steatosis of liver Temporal arteritis (HCC) Thrombocytopenia Type 2 diabetes mellitus, without long-term current use of insulin (HCC) Stage 3a chronic kidney disease (HCC) Hyponatremia Anemia in other chronic diseases classified elsewhere Constipation Cellulitis and abscess of toe of left foot Exostosis of toe Atherosclerosis of [place] artery of extremity Abscess of toe of left foot Osteomyelitis of great toe (HCC) PVD (peripheral vascular disease) Chest pain Critical limb ischemia of left lower extremity (HCC) Left foot pain Gangrene due to arterial insufficiency (HCC) Gangrene (HCC) 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) Complication of foot amputation stump (HCC) Diabetic foot infection (HCC) S/P transmetatarsal amputation of foot, left (HCC) Wound dehiscence Palliative care by specialist Goals of care, counseling/discussion Pancytopenia (HCC) Acute respiratory failure with hypoxemia (HCC) Acute pulmonary edema (HCC) Hypotension Metabolic encephalopathy Acute cystitis without hematuria Atrial fibrillation with RVR (HCC) Seizure (HCC) Respiratory arrest (HCC) Atrial fibrillation with slow ventricular response (HCC) BP 90/50 Pulse 56 Temp 97.5 F (36.4 C) (Oral) Resp 16 Wt 122lb 12.7 oz (55.7 kg) SpO2 97% BMI 22.46 kg/m I/O 24 hours: Intake/Output Summary (Last 24 hours) at 06/24/2025 1018 Last data filed at 06/24/2025 0701 Gross per 24 hour Intake 602.16 ml Output 1250 ml Net -647.84 ml Diagnostic tests The most recent cardiovascular imaging studies available in [facility] EMR werereviewed at time of consultation Physical Exam: Physical Exam Constitutional: Appearance: She is ill-appearing. Interventions: She is sedated and intubated. Cardiovascular: Rate and Rhythm: Normal rate. Pulmonary: Effort: Pulmonary effort is normal. She is intubated. Abdominal: Palpations: Abdomen is soft. Musculoskeletal: Right lower leg: No edema. Left Lower Extremity: Left leg is amputated above knee. Skin: Capillary Refill: Capillary refill takes less than 2 seconds. Telemetry: AF Assessment: Active Hospital Problems Diagnosis *Atrial fibrillation with RVR (HCC) Seizure (HCC) Respiratory arrest (HCC) Atrial fibrillation with slow ventricular response (HCC) Acute pulmonary edema (HCC) Anemia in other chronic diseases classified elsewhere Stage 3a chronic kidney disease (HCC) Chest pain, unspecified type // Elevated troponin Acute on chronic heart failure with preserved ejection fraction (HCC) Hx of subarachnoid hemorrhage // history of traumatic brain injury -hemorrhagic cerebral contusion History of pulmonary embolus (PE) Paroxysmal atrial fibrillation (HCC) Type 2 diabetes mellitus, without long-term current use of insulin (HCC) Hypertension associated with diabetes (HCC) Atrial Fibrillation Tachybrady Syndrome -Initially with afib RVR - started on diltiazem and coreg - becamebradycardia requiring atropine and briefly on dopamine and epi gtt -Check ECHO -Avoid rate slowing medications -Telemetry -May need eventual EP consult for consideration of PPM Respiratory Arrest -Now intubated and sedated -Per ICU Seizure -Neurology consulted Chronic Kidney Disease -Renal function stable Acute on Chronic Heart Failure Preserved Ejection Fraction -ECHO (05/27/2025) LVEF 55-60%. Mild MR> LAE. RVSF. Severe TR. PASP 41mmHg. Mild AI. Trivial pericardial effusion -CTPA - no acute PE. Bilateral pleural effusions and dependent opacities -atelectasis -[employer] lasix PRN -Currently on IV diuresis this admission -Volume status appears to be improving - likely transition to PO tomorrow Coronary Artery Disease -Remote history of CABG and subsequent PCIs -[employer] lipitor 40 mg, coreg 25 mg BID, ranexa 500 mg BID History of PE -No [employer] AC with history of ICH Elevated Troponin -Troponin 92, 83 -EKG afib RVR -ECHO pending Type 2 Diabetes -A1c 5.3 Hypertension -[employer] coreg 25 mg BID Hyperlipidemia -[employer] lipitor 40 mg Peripheral Vascular Disease -s/p recent left AKA Plan: Check ECHO Holding rate slowing medications Continue telemetry Reduce IV diuresis to daily - likely transition to PO tomorrow May need eventual EP consult for consideration of PPM Further input from Dr. Pascual Harris, [employer] Heart and V[facility] 06/24/2025 Disposition Perspective - Medically Ready for Discharge: No Anticipated Discharge: 1-2 days Discharge when / if: pending course ATTENDING PHYSICIAN NOTE/ATTESTATION: I have reviewed other provider notes as well as the patient's past andpresent medical problems, medications, allergies, family history, socialhistory, laboratory and radiology studies. I have personally taken adetailed history and performed a detailed physical examination of thispatient. A cardiology team advanced practitioner also participated in thepatient's care and the above note reflects their findings. I have providedthe majority of medical decision making as reflected below. My findingsare below and may differ slightly from the assessment and plan of theadvanced practitioner. Skyler Bautista is a 84 y.o. 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 A fib w/ RVR on admission, placed on dilt gtt, became bradycardic andhypotension, had subsequent PEA arrest, now s/p ETT and left IJ centralline. ECG on admission w/ rapid atrial fibrillation, possible old anteroseptalMI Hs Trop 92-83 NT Pro BNP [address] [facility] 11/25/2022- 1. 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 iFR of SVG to OM with results 0.98 Recommendations- Continue medical management and risk factormodification. Echo 05/2025: Normal LVEF, severe TR, RVSP 41 Nuclear MPI 12/2024: No ischemia, normal LVEF Intubated on exam, FiO2 40% Heart with tachycardia, irregular rhythm, no murmurs Lungs with mechanical breath sounds, coarse throughout No edema, ext well perfused Chronic AF, possibly tachy/amber, had seizures once in MICU, may have beenetiology for LOC/Bradycardia while on floor. On dopamine gtt briefly. Now off dopamine, HR normal. Will discuss PPM if indicated once extubated Hold AV angela blocking agents, tolerate mildly elevated rates. If neededcan use amiodarone No AC with ongoing anemia and hx of SAH Echo with mildly reduced LVEF, drop from prior, volume status looksreasonable on exam however her CXR looks like pulmonary congestion Give lasix 40mg IV Type II myocardial demand injury, no ACS. Continue atorvastatin. Advanced age, multiple comorbidities, overall guarded prognosis. Sukh Garner, DO, FACC ADMIT Routine 06/23/2025 3:34 PM EDT ADMIT Routine 06/23/2025 3:[address] ANGIOGRAM PULMONARY W CONTRAST STAT 06/23/2025 2:57 PM EDT XR CHEST AP PORTABLE PAULETTE 06/23/2025 1:41 PM EDT TROPONIN-T HIGH SENSITIVITY BASELINE W/ REFLEX STAT 06/23/2025 1:28 PM EDT CBC STAT 06/23/2025 1:28 PM EDT PARTIAL THROMBOPLASTIN TIME STAT 06/23/2025 1:28 PM EDT PT / INR STAT 06/23/2025 1:28 PM EDT D-DIMER STAT 06/23/2025 1:28 PM EDT NT PROBNP STAT 06/23/2025 1:28 PM EDT BASIC METABOLIC PANEL STAT 06/23/2025 1:28 PM EDT EK EKG 12 LEAD STAT 06/23/2025 1:16 PM EDT documented in this encounter Results * (ABNORMAL) GLUCOSE METER POC (07/02/2025 8:08 AM EDT) [facility] Glucose Meter POC 112(H) 70 - 100 mg/dL 07/02/2025 8:11 AM EDT [facility] Sample Type Capillary 07/02/2025 8:11 AM EDT [facility] Patient Status Non-Critical Patient 07/02/2025 8:11 AM EDT [facility] Blood BLOOD SPECIMEN / Unknown 07/02/2025 8:08 AM EDT 07/02/2025 8:11 AM EDT Duong Vitale MD POINT OF CARE TEST ORDERABLES Final Result Performing Organization Address City/[facility] Co de Phone Number [facility] [address] [place] [address] * (ABNORMAL) GLUCOSE METER POC (07/01/2025 8:19 PM EDT) Glucose Meter POC 123(H) 70 - 100 mg/dL 07/01/2025 8:20 PM EDT [facility] Sample Type Capillary 07/01/2025 8:20 PM EDT [facility] Patient Status Non-Critical Patient 07/01/2025 8:20 PM EDT [facility] Blood BLOOD SPECIMEN / Unknown 07/01/2025 8:19 PM EDT 07/01/2025 8:20 PM EDT Duong Vitale MD POINT OF CARE TEST ORDERABLES Final Result Performing Organization Address [facility] de Phone Number [facility] [address] [place] [address] * ECG AND WAVEFORMS - TELEMETRY (07/01/2025 7:05 PM EDT) Pathologist [facility] ECG INTERPRET Sinus Arrythmia [facility] 07/01/2025 7:05 PM EDT Narrative [facility] - 07/01/2025 7:37 PM EDT ROUTINE/PAC/PVC/af TN 0.18 QRS 0.09 RR 0.58 QT 0.35 QTc 0.46 See Clinical Report link for waveform capture Unknown Provider POINT OF CARE CARDIOLOGY Final Result Performing Organization Address City/[facility] Co de Phone Number [facility] [address] [place], [place] [id number] * (ABNORMAL) GLUCOSE METER POC (07/01/2025 5:28 PM EDT) Glucose Meter POC 122(H) 70 - 100 mg/dL 07/01/2025 5:30 PM EDT [facility] Sample Type Capillary 07/01/2025 5:30 PM EDT [facility] Patient Status Non-Critical Patient 07/01/2025 5:30 PM EDT [facility] Blood BLOOD SPECIMEN / Unknown 07/01/2025 5:28 PM EDT 07/01/2025 5:30 PM EDT Duong Vitale MD POINT OF CARE TEST ORDERABLES Final Result Performing Organization Address [facility] de Phone Number [facility] [address] [place] [address] * (ABNORMAL) GLUCOSE METER POC (07/01/2025 11:44 AM EDT) Glucose Meter POC 143(H) 70 - 100 mg/dL 07/01/2025 11:45 AM EDT [facility] Sample Type Capillary 07/01/2025 11:45 AM EDT [facility] Patient Status Non-Critical Patient 07/01/2025 11:45 AM EDT [facility] Blood BLOOD SPECIMEN / Unknown 07/01/2025 11:44 AM EDT 07/01/2025 11:45 AM EDT Duong Vitale MD POINT OF CARE TEST ORDERABLES Final Result Performing Organization Address [facility] de Phone Number [facility] [address] [place] [address] * (ABNORMAL) COMPREHENSIVE METABOLIC PANEL (07/01/2025 10:56 AM EDT) Sodium 138 136 - 145 mmol/L 07/01/2025 11:22 AM EDT [facility] Potassium 3.6 3.5 - 5.0 mmol/L 07/01/2025 11:22 AM EDT [facility] Chloride 104 98 - 107 mmol/L 07/01/2025 11:22 AM EDT [facility] Total CO2 22 22 - 29 mmol/L 07/01/2025 11:22 AM EDT [facility] Anion Gap 12 7 - 16 mmol/L 07/01/2025 11:22 AM EDT [facility] Calcium 8.9 8.8 - 10.4 mg/dL 07/01/2025 11:22 AM EDT [facility] Glucose Lvl 128(H) 70 - 99 mg/dL 07/01/2025 11:22 AM EDT [facility] BUN 25(H) 8 - 23 mg/dL 07/01/2025 11:22 AM EDT [facility] Creatinine 0.82 0.51 - 1.30 mg/dL 07/01/2025 11:22 AM EDT [facility] Albumin 3.7 3.2 - 4.6 gm/dL 07/01/2025 11:22 AM EDT [facility] Total Protein 7.1 6.4 - 8.3 gm/dL 07/01/2025 11:22 AM EDT [facility] Bili Total 0.6 0.2 - 1.3 mg/dL 07/01/2025 11:22 AM EDT [facility] ALT 18 <=41 U/L 07/01/2025 11:22 AM EDT [facility] AST 35 <=40 U/L 07/01/2025 11:22 AM EDT [facility] Alk Phos 151(H) 36 - 123 U/L 07/01/2025 11:22 AM EDT [facility] eGFR (CKD-EPIcr 2020) 70 >=60 mL/min/1.7 3 m2 07/01/2025 11:22 AM EDT [facility] Comment:Estimated GFR was ca lculated using the CKD-EPIcr (2020) equation refit without race. The equation is recommended by the [employer] - [place] [employer]ph[employer] Task Force. Blood VENOUS BLOOD / Unknown Venipuncture / Unknown 07/01/2025 10:56 AM EDT 07/01/2025 10:59 AM EDT us Jacob Horowitz MD CHEMISTRY ORDERABLES Final Resul t [facility] [address] [place] [address] * ECG AND WAVEFORMS - TELEMETRY (07/01/2025 7:07 AM EDT) ECG INTERPRET Atrial Fib [facility] 07/01/2025 7:07 AM EDT Narrative [facility] - 07/01/2025 7:32 AM EDT ROUTINE (AP) QRS 0.13 See Clinical Report link for waveform capture us Unknown Provider POINT OF CARE CARDIOLOGY Final Result Performing Organization Address City/[facility]/ZIP Co de Phone Number [facility] [address] [place] [address] * (ABNORMAL) GLUCOSE METER POC (06/30/2025 9:11 PM EDT) Glucose Meter POC 149(H) 70 - 100 mg/dL 06/30/2025 9:12 PM EDT [facility] Sample Type Capillary 06/30/2025 9:12 PM EDT [facility] Patient Status Non-Critical Patient 06/30/2025 9:12 PM EDT [facility] Blood BLOOD SPECIMEN / Unknown 06/30/2025 9:11 PM EDT 06/30/2025 9:12 PM EDT us Duong Vitale MD POINT OF CARE TEST ORDERABLES Final Result Performing Organization Address City/[facility] de Phone Number [facility] [address] [place] [address] * ECG AND WAVEFORMS - TELEMETRY (06/30/2025 7:00 PM EDT) ECG INTERPRET Atrial Flutter [facility] 06/30/2025 7:00 PM EDT Narrative [facility] - 06/30/2025 7:57 PM EDT Routine 1900/PVC QRS 0.09 See Clinical Report link for waveform capture us Unknown Provider POINT OF CARE CARDIOLOGY Final Result Performing Organization Address City/[facility] Co de Phone Number [facility] [address] [place] [address] * (ABNORMAL) GLUCOSE METER POC (06/30/2025 4:26 PM EDT) Glucose Meter POC 145(H) 70 - 100 mg/dL 06/30/2025 4:27 PM EDT [facility] Sample Type Capillary 06/30/2025 4:27 PM EDT [facility] Patient Status Non-Critical Patient 06/30/2025 4:27 PM EDT [facility] Blood BLOOD SPECIMEN / Unknown 06/30/2025 4:26 PM EDT 06/30/2025 4:27 PM EDT Duong Vitale MD POINT OF CARE TEST ORDERABLES Final Result Performing Organization Address [facility] Co de Phone Number [facility] [address] [place] [address] * (ABNORMAL) GLUCOSE METER POC (06/30/2025 12:22 PM EDT) Glucose Meter POC 136(H) 70 - 100 mg/dL 06/30/2025 12:24 PM EDT [facility] Sample Type Capillary 06/30/2025 12:24 PM EDT [facility] Patient Status Non-Critical Patient 06/30/2025 12:24 PM EDT [facility] Blood BLOOD SPECIMEN / Unknown 06/30/2025 12:22 PM EDT 06/30/2025 12:24 PM EDT us Duong Vitale MD POINT OF CARE TEST ORDERABLES Final Result Performing Organization Address City/[facility]/ZIP Co de Phone Number [facility] [address] [place] [address] * (ABNORMAL) COMPREHENSIVE METABOLIC PANEL (06/30/2025 10:18 AM EDT) Sodium 140 136 - 145 mmol/L 06/30/2025 10:49 AM EDT [facility] Potassium 3.7 3.5 - 5.0 mmol/L 06/30/2025 10:49 AM EDT [facility] Chloride 105 98 - 107 mmol/L 06/30/2025 10:49 AM EDT [facility] Total CO2 25 22 - 29 mmol/L [facility]/30[facility]2025 [facility] Anion Gap 10 7 - 16 mmol/L 06/30/2025 10:49 AM EDT [facility] Calcium 8.8 8.8 - 10.4 mg/dL 06/30/2025 10:[facility] Glucose Lvl 120(H) 70 - 99 mg/dL 06/30/2025 10:49 [facility] BUN 21 8 - 23 mg/dL 06/30/2025 10:49 AM [facility] Creatinine 0.83 0.51 - 1.30 mg/dL 06/30/2025 10:49 AM [facility] Albumin 3.6 3.2 - 4.6 gm/dL 06/30/2025 10:49 [facility] Total Protein 6.8 6.4 - 8.3 gm/dL 06/30/2025 10:49 AM [facility] Bili Total 0.5 0.2 - 1.3 mg/dL 06/30/2025 10:49 AM [facility] ALT 19 <=41 U/L 06/30/2025 10:49 AM [facility] AST 35 <=40 U/L 06/30/2025 10:49 AM [facility] Alk Phos 145(H) 36 - 123 U/L 06/30/2025 10:49 AM [facility] eGFR (CKD-EPIcr 2020) 69 >=60 mL/min/1.7 3 m2 06/30/2025 10:49 AM [facility] Comment:Estimated GFR was ca lculated using the CKD-EPIcr (2020) equation refit without race. The equation is recommended by the [employer] - [place] [employer] Neph[employer] Task Force. Blood VENOUS BLOOD / Unknown Venipuncture / Unknown 06/30/2025 10:18 AM EDT 06/30/2025 10:23 AM EDT us Jacob Horowitz MD CHEMISTRY ORDERABLES Final Resul t Performing Organization Address [facility] Co de Phone Number [facility] [address] [place] [address] * (ABNORMAL) GLUCOSE METER POC (06/30/2025 8:26 AM EDT) Glucose Meter POC 114(H) 70 - 100 mg/dL 06/30/2025 8:27 AM EDT [facility] Sample Type Capillary 06/30/2025 8:27 AM EDT [facility] Patient Status Non-Critical Patient 06/30/2025 8:27 AM EDT [facility] Blood BLOOD SPECIMEN / Unknown 06/30/2025 8:26 AM EDT 06/30/2025 8:27 AM EDT us Duong Vitale MD POINT OF CARE TEST ORDERABLES Final Result Performing Organization Address [facility] de Phone Number [facility] [address] [place] [address] * ECG AND WAVEFORMS - TELEMETRY (06/30/2025 7:03 AM EDT) ECG INTERPRET Atrial Fib [facility] Comment:with a pvc 06/30/2025 7:03 AM EDT Narrative [facility] - 06/30/2025 7:39 AM EDT ROUTINE W/ PVC (AP) QRS 0.10 See Clinical Report link for waveform capture us Unknown Provider POINT OF CARE CARDIOLOGY Final Result Performing Organization Address City/[facility] Co de Phone Number [facility] [address] [place] [address] * (ABNORMAL) GLUCOSE METER POC (06/29/2025 9:25 PM EDT) Glucose Meter POC 134(H) 70 - 100 mg/dL 06/29/2025 9:27 PM EDT [facility] Sample Type Capillary 06/29/2025 9:27 PM EDT [facility] Patient Status Non-Critical Patient 06/29/2025 9:27 PM EDT [facility] Blood BLOOD SPECIMEN / Unknown 06/29/2025 9:25 PM EDT 06/29/2025 9:27 PM EDT Duong Vitale MD POINT OF CARE TEST ORDERABLES Final Result Performing Organization Address City/[facility]/ZIP Co de Phone Number [facility] [address] [place] [address] * ECG AND WAVEFORMS - TELEMETRY (06/29/2025 7:00 PM EDT) ECG INTERPRET Atrial Flutter [facility] 06/29/2025 7:00 PM EDT Narrative [facility] - 06/29/2025 9:49 PM EDT Routine 1900/Quadgem PVC/qj QRS 0.10 See Clinical Report link for waveform capture us Unknown Provider POINT OF CARE CARDIOLOGY Final Result Performing Organization Address [facility] Co de Phone Number [facility] [address] [place] [address] * (ABNORMAL) GLUCOSE METER POC (06/29/2025 5:50 PM EDT) Glucose Meter POC 185(H) 70 - 100 mg/dL 06/29/2025 5:52 PM EDT [facility] Sample Type Capillary 06/29/2025 5:52 PM EDT [facility] Patient Status Non-Critical Patient 06/29/2025 5:52 PM EDT [facility] Blood BLOOD SPECIMEN / Unknown 06/29/2025 5:50 PM EDT 06/29/2025 5:52 PM EDT Duong Vitale MD POINT OF CARE TEST ORDERABLES Final Result [facility] [address] [place], [place] [address] * (ABNORMAL) COMPREHENSIVE METABOLIC PANEL (06/29/2025 11:22 AM EDT) Sodium 139 136 - 145 mmol/L 06/29/2025 11:57 AM EDT [facility] Potassium 4.1 3.5 - 5.0 mmol/L 06/29/2025 11:57 AM EDT [facility] Chloride 106 98 - 107 mmol/L 06/29/2025 11:57 AM EDT [facility] Total CO2 21(L) 22 - 29 mmol/L 06/29/2025 11:57 AM EDT [facility] Anion Gap 12 7 - 16 mmol/L 06/29/2025 11:57 AM EDT [facility] Calcium 8.9 8.8 - 10.4 mg/dL 06/29/2025 11:57 AM EDT [facility] Glucose Lvl 140(H) 70 - 99 mg/dL 06/29/2025 11:57 AM EDT [facility] BUN 17 8 - 23 mg/dL 06/29/2025 11:57 AM EDT [facility] Creatinine 0.74 0.51 - 1.30 mg/dL 06/29/2025 11:57 AM EDT [facility] Albumin 3.7 3.2 - 4.6 gm/dL 06/29/2025 11:57 AM EDT [facility] Total Protein 7.1 6.4 - 8.3 gm/dL 06/29/2025 11:57 AM EDT [facility] Bili Total 0.6 0.2 - 1.3 mg/dL 06/29/2025 11:57 AM EDT [facility] ALT 16 <=41 U/L 06/29/2025 11:57 AM EDT [facility] AST 39 <=40 U/L 06/29/2025 11:57 AM EDT [facility] Alk Phos 143(H) 36 - 123 U/L 06/29/2025 11:57 AM EDT [facility] eGFR (CKD-EPIcr 2021) 79 >=60 mL/min/1.7 3 m2 06/29/2025 11:57 AM EDT [facility] Comment:Estimated GFR was ca lculated using the CKD-EPIcr (2020) equation refit without race. The equation is recommended by the [employer] - [place] [employer] Neph[employer] Task Force. Blood VENOUS BLOOD / Unknown Venipuncture / Unknown 06/29/2025 11:22 AM EDT 06/29/2025 11:36 AM EDT us Jacob Horowitz MD CHEMISTRY ORDERABLES Final Resul t Performing Organization Address [facility] de Phone Number [facility] [address] [place] [address] * (ABNORMAL) GLUCOSE METER POC (06/29/2025 10:28 AM EDT) Glucose Meter POC 113(H) 70 - 100 mg/dL 06/29/2025 10:29 AM EDT [facility] Sample Type Capillary 06/29/2025 10:29 AM EDT [facility] Patient Status Non-Critical Patient 06/29/2025 10:29 AM EDT [facility] Blood BLOOD SPECIMEN / Unknown 06/29/2025 10:28 AM EDT 06/29/2025 10:29 AM EDT us Duong Vitale MD POINT OF CARE TEST ORDERABLES Final Result Performing Organization Address [facility] de Phone Number [facility] [address] [place] [address] * ECG AND WAVEFORMS - TELEMETRY (06/29/2025 7:03 AM EDT) ECG INTERPRET Atrial Fib [facility] 06/29/2025 7:03 AM EDT Narrative [facility] - 06/29/2025 7:25 AM EDT ROUTINE-BB See Clinical Report link for waveform capture us Unknown Provider POINT OF CARE CARDIOLOGY Final Result Performing Organization Address [facility]/ZIP Co de Phone Number [facility] [address] [place] [address] * ECG AND WAVEFORMS - TELEMETRY (06/29/2025 5:17 AM EDT) ECG INTERPRET Atrial Fib [facility] 06/29/2025 5:17 AM EDT Narrative [facility] - 06/29/2025 5:18 AM EDT ADMIT W/ PVCS (JM) QRS 0.06 See Clinical Report link for waveform capture us Unknown Provider POINT OF CARE CARDIOLOGY Final Result Performing Organization Address [facility] Co de Phone Number [facility] [address] [place] [address] * (ABNORMAL) GLUCOSE METER POC (06/28/2025 10:06 PM EDT) [facility] Glucose Meter POC 154(H) 70 - 100 mg/dL 06/28/2025 10:07 PM EDT [facility] Sample Type Capillary 06/28/2025 10:07 PM EDT [facility] Patient Status Non-Critical Patient 06/28/2025 10:07 PM EDT [facility] Blood BLOOD SPECIMEN / Unknown 06/28/2025 10:06 PM EDT 06/28/2025 10:07 PM EDT us Duong Vitale MD POINT OF CARE TEST ORDERABLES Final Result Performing Organization Address City/[facility]/ZIP Co de Phone Number [facility] [address] [place] [address] * ECG AND WAVEFORMS - TELEMETRY (06/28/2025 7:21 PM EDT) ECG INTERPRET Atrial Fib [facility] Comment:with PVC. 06/28/2025 7:21 PM EDT Narrative [facility] - 06/28/2025 7:23 PM EDT ROUTINE (JM) QRS 0.07 See Clinical Report link for waveform capture us Unknown Provider POINT OF CARE CARDIOLOGY Final Result Performing Organization Address City/[facility]/ZIP Co de Phone Number [facility] [address] [place] [address] * (ABNORMAL) GLUCOSE METER POC (06/28/2025 5:07 PM EDT) Glucose Meter POC 136(H) 70 - 100 mg/dL 06/28/2025 5:09 PM EDT [facility] Sample Type Capillary 06/28/2025 5:09 PM EDT [facility] Patient Status Non-Critical Patient 06/28/2025 5:09 PM EDT [facility] Blood BLOOD SPECIMEN / Unknown 06/28/2025 5:07 PM EDT 06/28/2025 5:09 PM EDT us Duong Vitale MD POINT OF CARE TEST ORDERABLES Final Result Performing Organization Address [facility] Co de Phone Number [facility] [address] [place] [address] * (ABNORMAL) GLUCOSE METER POC (06/28/2025 12:03 PM EDT) Glucose Meter POC 179(H) 70 - 100 mg/dL 06/28/2025 12:05 PM EDT [facility] Sample Type Capillary 06/28/2025 12:05 PM EDT [facility] Patient Status Non-Critical Patient 06/28/2025 12:05 PM EDT [facility] Blood BLOOD SPECIMEN / Unknown 06/28/2025 12:03 PM EDT 06/28/2025 12:05 PM EDT Duong Vitale MD POINT OF CARE TEST ORDERABLES Final Result Performing Organization Address City/[facility]/ZIP Co de Phone Number [facility] [address] [place] [address] * (ABNORMAL) COMPREHENSIVE METABOLIC PANEL (06/28/2025 11:26 AM EDT) Sodium 139 136 - 145 mmol/L 06/28/2025 11:55 AM [facility] Potassium 4.0 3.5 - 5.0 mmol/L 06/28/2025 11:55 AM [facility] Chloride 106 98 - 107 mmol/L 06/28/2025 11:55 AM [facility] Total CO2 23 22 - 29 mmol/L 06/28/2025 11:55 AM [facility] Anion Gap 10 7 - 16 mmol/L 06/28/2025 11:55 AM [facility] Calcium 8.6(L) 8.8 - 10.4 mg/dL 06/28/2025 11:55 AM [facility] Glucose Lvl 161(H) 70 - 99 mg/dL 06/28/2025 11:55 AM [facility] BUN 15 8 - 23 mg/dL 06/28/2025 11:55 AM [facility] Creatinine 0.80 0.51 - 1.30 mg/dL 06/28/2025 11:55 AM [facility] Albumin 3.7 3.2 - 4.6 gm/dL 06/28/2025 11:55 AM [facility] Total Protein 6.8 6.4 - 8.3 gm/dL 06/28/2025 11:55 AM [facility] Bili Total 0.6 0.2 - 1.3 mg/dL 06/28/2025 11:55 AM [facility] ALT 16 <=41 U/L 06/28/2025 11:55 AM [facility] AST 32 <=40 U/L 06/28/2025 11:55 AM [facility] Alk Phos 143(H) 36 - 123 U/L 06/28/2025 11:55 AM [facility] eGFR (CKD-EPIcr 2020) 72 >=60 mL/min/1.7 3 m2 06/28/2025 11:55 AM [facility] Comment:Estimated GFR was ca lculated using the CKD-EPIcr (2020) equation refit without race. The equation is recommended by the [employer] - [place] [employer] [employer] Neph[employer] Task Force. Blood VENOUS BLOOD / Unknown Venipuncture / Unknown 06/28/2025 11:26 AM EDT 06/28/2025 11:30 AM EDT us Jacob Horowitz MD CHEMISTRY ORDERABLES Final Resul t Performing Organization Address [facility] Co de Phone Number [facility] [address] [place] [address] * PHOSPHORUS LEVEL (06/28/2025 11:26 AM EDT) Phosphorus 2.6 2.5 - 4.5 mg/dL 06/28/2025 11:55 AM EDT [facility] Blood VENOUS BLOOD / Unknown Venipuncture / Unknown 06/28/2025 11:26 AM EDT 06/28/2025 11:30 AM EDT us Jacob Horowitz MD CHEMISTRY ORDERABLES Final Resul t Performing Organization Address [facility] de Phone Number [facility] [address] [place] [address] * MAGNESIUM LEVEL (06/28/2025 11:26 AM EDT) Magnesium 1.8 1.6 - 2.4 mg/dL 06/28/2025 12:04 PM EDT [facility] Blood VENOUS BLOOD / Unknown Venipuncture / Unknown 06/28/2025 11:26 AM EDT 06/28/2025 11:30 AM EDT us Jacob Horowitz MD CHEMISTRY ORDERABLES Final Resul t Performing Organization Address City/[facility] de Phone Number [facility] [address] [place], [place] [id number] * (ABNORMAL) CBC WITH DIFF (06/28/2025 11:26 AM EDT) WBC 4.3 3.7 - 10.3 x10(3)/mcL 06/28/2025 11:33 AM EDT [facility] RBC 2.62(L) 3.90 - 5.20 x10(6)/mcL 06/28/2025 11:33 AM EDT [facility] Hgb 9.7(L) 11.2 - 15.7 g/dL 06/28/2025 11:33 AM EDT [facility] Hct 30.2(L) 34.0 - 45.0 % 06/28/2025 11:33 AM EDT [facility] MCV 115.3(H) 80.0 - 100.0 fL 06/28/2025 11:33 AM EDT [facility] MCH 37.0(H) 26.0 - 34.0 pg 06/28/2025 11:33 AM EDT [facility] MCHC 32.1 30.7 - 35.5 g/dL 06/28/2025 11:[facility] R[facility] 18.9(H) <=14.9 % 06/28/2025 11:33 AM EDT [facility] Platelet 86(L) 155 - 369 x10(3)/mcL 06/28/2025 11:33 AM EDT [facility] MPV 11.8 8.8 - 12.5 fL 06/28/2025 11:33 AM EDT [facility] Neut Percent 52.1 % 06/28/2025 11:33 AM EDT [facility] Comment:Neutrophils equals s egs plus bands Imm Gran% 0.5 % 06/28/2025 11:33 AM EDT [facility] Comment:Automated count of m etamyelocytes, myelocytes and promyelocytes. Lymph Percent 40.1 % 06/28/2025 11:33 AM EDT [facility] [place] Percent 6.6 % 06/28/2025 11:33 AM EDT [facility] Eos Percent 0.2 % 06/28/2025 11:33 AM EDT [facility] Baso Percent 0.5 % 06/28/2025 11:33 AM EDT [facility] Neut # 2.2 1.6 - 6.1 x10(3)/mcL 06/28/2025 11:33 AM EDT [facility] Comment:Neutrophils equals s egs plus bands IMMGRAN# 0.0 0.0 - 0.1 x10(3)/[facility] 06/28/2025 11:33 AM EDT [facility] Comment:Automated count of m etamyelocytes, myelocytes and promyelocytes. An absolute IG <0.1 is reported as 0.0. Lymph # 1.7 1.2 - 3.9 x10(3)/[facility] 06/28/2025 11:33 AM EDT [facility] [place] # 0.3 0.3 - 0.9 x10(3)/[facility] 06/28/2025 11:33 AM EDT [facility] Eos# 0.0 0.0 - 0.5 x10(3)/[facility] 06/28/2025 11:33 AM EDT [facility] Baso # 0.0 0.0 - 0.1 x10(3)/[facility] 06/28/2025 11:33 AM EDT [facility] Blood VENOUS BLOOD / Unknown Venipuncture / Unknown 06/28/2025 11:26 AM EDT 06/28/2025 11:30 AM EDT us Jacob Horowitz MD HEMATOLOGY ORDERABLES Final Resu lt Performing Organization Address City/State/[facility] Co de Phone Number [facility] [address] [place], [place] [id number] * (ABNORMAL) GLUCOSE METER POC (06/28/2025 8:20 AM EDT) [facility] Glucose Meter POC 104(H) 70 - 100 mg/dL 06/28/2025 8:21 AM EDT [facility] Sample Type Capillary 06/28/2025 8:21 AM EDT [facility] Patient Status Non-Critical Patient 06/28/2025 8:21 AM EDT [facility] Blood BLOOD SPECIMEN / Unknown 06/28/2025 8:20 AM EDT 06/28/2025 8:21 AM EDT us Duong Vitale MD POINT OF CARE TEST ORDERABLES Final Result Performing Organization Address City/[facility] Co de Phone Number [facility] [address] [place] [address] * ECG AND WAVEFORMS - TELEMETRY (06/28/2025 7:00 AM EDT) ECG INTERPRET Atrial Fib [facility] 06/28/2025 7:00 AM EDT Narrative [facility] - 06/28/2025 7:40 AM EDT ECB - ROUTINE QRS 0.11 See Clinical Report link for waveform capture us Unknown Provider POINT OF CARE CARDIOLOGY Final Result Performing Organization Address [facility] de Phone Number [facility] [address] [place] [address] * (ABNORMAL) GLUCOSE METER POC (06/28/2025 12:13 AM EDT) Glucose Meter POC 133(H) 70 - 100 mg/dL 06/28/2025 12:14 AM EDT [facility] Sample Type Capillary 06/28/2025 12:14 AM EDT [facility] Patient Status Non-Critical Patient 06/28/2025 12:14 AM EDT [facility] Blood BLOOD SPECIMEN / Unknown 06/28/2025 12:13 AM EDT 06/28/2025 12:14 AM EDT us Duong Vitale MD POINT OF CARE TEST ORDERABLES Final Result Performing Organization Address [facility] de Phone Number [facility] [address] [place] [address] * (ABNORMAL) GLUCOSE METER POC (06/27/2025 8:12 PM EDT) Glucose Meter POC 141(H) 70 - 100 mg/dL 06/27/2025 8:14 PM EDT [facility] Sample Type Capillary 06/27/2025 8:14 PM EDT [facility] Patient Status Non-Critical Patient 06/27/2025 8:14 PM EDT [facility] Blood BLOOD SPECIMEN / Unknown 06/27/2025 8:12 PM EDT 06/27/2025 8:14 PM EDT Duong Vitale MD POINT OF CARE TEST ORDERABLES Final Result Performing Organization Address City/[facility]/ZIP Co de Phone Number [facility] [address] [place] [address] * ECG AND WAVEFORMS - TELEMETRY (06/27/2025 7:22 PM EDT) ECG INTERPRET Atrial Fib [facility] 06/27/2025 7:22 PM EDT Narrative [facility] - 06/27/2025 7:25 PM EDT ROUTINE/ PVCS (JM) QRS 0.08 See Clinical Report link for waveform capture us Unknown Provider POINT OF CARE CARDIOLOGY Final Result Performing Organization Address [facility] Co de Phone Number [facility] [address] [place] [phone] * (ABNORMAL) GLUCOSE METER POC (06/27/2025 5:34 PM EDT) Glucose Meter POC 184(H) 70 - 100 mg/dL 06/27/2025 5:35 PM EDT [facility] Sample Type Capillary 06/27/2025 5:35 PM EDT [facility] Patient Status Non-Critical Patient 06/27/2025 5:35 PM EDT [facility] Blood BLOOD SPECIMEN / Unknown 06/27/2025 5:34 PM EDT 06/27/2025 5:35 PM EDT us Duong Vitale MD POINT OF CARE TEST ORDERABLES Final Result Performing Organization Address City/[facility]/ZIP Co de Phone Number [facility] [address] [place] [address] * (ABNORMAL) GLUCOSE METER POC (06/27/2025 11:48 AM EDT) Glucose Meter POC 119(H) 70 - 100 mg/dL 06/27/2025 11:49 AM EDT [facility] Sample Type Capillary 06/27/2025 11:49 AM EDT [facility] Patient Status Non-Critical Patient 06/27/2025 11:49 AM EDT [facility] Blood BLOOD SPECIMEN / Unknown 06/27/2025 11:48 AM EDT 06/27/2025 11:49 AM EDT us Duong Vitale MD POINT OF CARE TEST ORDERABLES Final Result Performing Organization Address [facility] de Phone Number [facility] [address] [place] [address] * (ABNORMAL) GLUCOSE METER POC (06/27/2025 9:02 AM EDT) [facility] Glucose Meter POC 121(H) 70 - 100 mg/dL 06/27/2025 9:04 AM EDT [facility] Sample Type Capillary 06/27/2025 9:04 AM EDT [facility] Patient Status Non-Critical Patient 06/27/2025 9:04 AM EDT [facility] Blood BLOOD SPECIMEN / Unknown 06/27/2025 9:02 AM EDT 06/27/2025 9:04 AM EDT us Duong Vitale MD POINT OF CARE TEST ORDERABLES Final Result Performing Organization Address [facility] de Phone Number [facility] [address] [place] [address] * EXTRA LAVENDER (06/27/2025 8:28 AM EDT) Blood VENOUS BLOOD / Unknown Venipuncture / Unknown 06/27/2025 8:28 AM EDT 06/27/2025 8:36 AM EDT us Duong Vitale MD HEMATOLOGY ORDERABLES Final R esult Performing Organization Address City/[facility]/ZIP Co de Phone Number [facility] [address] [place] [address] * (ABNORMAL) BASIC METABOLIC PANEL (06/27/2025 8:28 AM EDT) Sodium 138 136 - 145 mmol/L 06/27/2025 8:56 AM EDT [facility] Potassium 4.1 3.5 - 5.0 mmol/L 06/27/2025 8:56 AM EDT [facility] Chloride 106 98 - 107 mmol/L 06/27/2025 8:56 AM EDT [facility] Total CO2 21(L) 22 - 29 mmol/L 06/27/2025 8:56 AM EDT [facility] Anion Gap 11 7 - 16 mmol/L 06/27/2025 8:56 AM EDT [facility] Calcium 8.3(L) 8.8 - 10.4 mg/dL 06/27/2025 8:56 AM EDT [facility] Glucose Lvl 112(H) 70 - 99 mg/dL 06/27/2025 8:56 AM EDT [facility] BUN 13 8 - 23 mg/dL 06/27/2025 8:56 AM EDT [facility] Creatinine 0.86 0.51 - 1.30 mg/dL 06/27/2025 8:56 AM EDT [facility] eGFR (CKD-EPIcr 2020) 66 >=60 mL/min/1.7 3 m2 06/27/2025 8:56 AM EDT [facility] Comment:Estimated GFR was ca lculated using the CKD-EPIcr (2020) equation refit without race. The equation is recommended by the [employer] - [place] [employer] Neph[employer] Task Force. Blood VENOUS BLOOD / Unknown Venipuncture / Unknown 06/27/2025 8:28 AM EDT 06/27/2025 8:35 AM EDT us Lianet Harris [employer] SUPERVISOR CHEMISTRY ORDERABLES Fi nal Result [facility] [address] [place] [address] * ECG AND WAVEFORMS - TELEMETRY (06/27/2025 7:00 AM EDT) ECG INTERPRET Atrial Fib [facility] 06/27/2025 7:00 AM EDT Narrative [facility] - 06/27/2025 7:38 AM EDT ECB - ROUTINE QRS 0.12 See Clinical Report link for waveform capture us Unknown Provider POINT OF CARE CARDIOLOGY Final Result Performing Organization Address City/[facility]/ZIP Co de Phone Number [facility] [address] [place] [address] * (ABNORMAL) GLUCOSE METER POC (06/27/2025 5:39 AM EDT) Glucose Meter POC 105(H) 70 - 100 mg/dL 06/27/2025 5:41 AM EDT [facility] Sample Type Capillary 06/27/2025 5:41 AM EDT [facility] Patient Status Non-Critical Patient 06/27/2025 5:41 AM EDT [facility] Blood BLOOD SPECIMEN / Unknown 06/27/2025 5:39 AM EDT 06/27/2025 5:41 AM EDT Duong Vitale MD POINT OF CARE TEST ORDERABLES Final Result Performing Organization Address City/[facility]/ZIP Co de Phone Number [facility] [address] [place] [address] * (ABNORMAL) GLUCOSE METER POC (06/27/2025 12:32 AM EDT) [facility] Glucose Meter POC 118(H) 70 - 100 mg/dL 06/27/2025 12:33 AM EDT [facility] Sample Type Capillary 06/27/2025 12:33 AM EDT [facility] Patient Status Non-Critical Patient 06/27/2025 12:33 AM EDT [facility] Blood BLOOD SPECIMEN / Unknown 06/27/2025 12:32 AM EDT 06/27/2025 12:33 AM EDT Duong Vitale MD POINT OF CARE TEST ORDERABLES Final Result Performing Organization Address [facility] de Phone Number [facility] [address] [place] [address] * (ABNORMAL) GLUCOSE METER POC (06/26/2025 8:15 PM EDT) Glucose Meter POC 137(H) 70 - 100 mg/dL 06/26/2025 8:17 PM EDT [facility] Sample Type Capillary 06/26/2025 8:17 PM EDT [facility] Patient Status Non-Critical Patient 06/26/2025 8:17 PM EDT [facility] Blood BLOOD SPECIMEN / Unknown 06/26/2025 8:15 PM EDT 06/26/2025 8:17 PM EDT us Duong Vitale MD POINT OF CARE TEST ORDERABLES Final Result Performing Organization Address [facility] de Phone Number [facility] [address] [place] [address] * ECG AND WAVEFORMS - TELEMETRY (06/26/2025 7:52 PM EDT) ECG INTERPRET Atrial Fib [facility] 06/26/2025 7:52 PM EDT Narrative [facility] - 06/26/2025 7:54 PM EDT TW/ROUTINE QRS 0.10 See Clinical Report link for waveform capture us Unknown Provider POINT OF CARE CARDIOLOGY Final Result Performing Organization Address City/[facility] Co de Phone Number [facility] [address] [place] [address] * (ABNORMAL) GLUCOSE METER POC (06/26/2025 5:59 PM EDT) Glucose Meter POC 161(H) 70 - 100 mg/dL 06/26/2025 6:01 PM EDT [facility] Sample Type Capillary 06/26/2025 6:01 PM EDT [facility] Patient Status Non-Critical Patient 06/26/2025 6:01 PM EDT [facility] Blood BLOOD SPECIMEN / Unknown 06/26/2025 5:59 PM EDT 06/26/2025 6:01 PM EDT us Duong Vitale MD POINT OF CARE TEST ORDERABLES Final Result Performing Organization Address City/[facility]/ZIP Co de Phone Number [facility] [address] [place] [address] * ECG AND WAVEFORMS - TELEMETRY (06/26/2025 5:10 PM EDT) Pathologist [facility] ECG INTERPRET Atrial Fib [facility] 06/26/2025 5:10 PM EDT Narrative [facility] - 06/26/2025 5:10 PM EDT See Clinical Report link for waveform capture us Unknown Provider POINT OF CARE CARDIOLOGY Final Result Performing Organization Address City/[facility]/ZIP Co de Phone Number [facility] [address] [place] [phone] * (ABNORMAL) CBC WITH DIFF (06/26/2025 2:27 PM EDT) Pathologist [facility] WBC 4.1 3.7 - 10.3 x10(3)/mcL 06/26/2025 2:36 PM EDT [facility] RBC 2.51(L) 3.90 - 5.20 x10(6)/mcL 06/26/2025 2:36 PM EDT [facility] Hgb 9.3(L) 11.2 - 15.7 g/dL 06/26/2025 2:36 PM EDT [facility] Hct 27.7(L) 34.0 - 45.0 % 06/26/2025 2:36 PM EDT [facility] MCV 110.4(H) 80.0 - 100.0 fL 06/26/2025 2:36 PM EDT [facility] MCH 37.1(H) 26.0 - 34.0 pg 06/26/2025 2:36 PM EDT [facility] MCHC 33.6 30.7 - 35.5 g/dL 06/26/2025 2:36 PM EDT [facility] RDW 19.5(H) <=14.9 % 06/26/2025 2:36 PM EDT [facility] Platelet 94(L) 155 - 369 x10(3)/[facility] 06/26/2025 2:36 PM EDT [facility] MPV 12.1 8.8 - 12.5 fL 06/26/2025 2:36 PM EDT [facility] Neut Percent 58.8 % 06/26/2025 2:36 PM EDT [facility] Comment:Neutrophils equals s egs plus bands Imm Gran% 0.5 % 06/26/2025 2:36 PM EDT [facility] Comment:Automated count of m etamyelocytes, myelocytes and promyelocytes. Lymph Percent 32.9 % 06/26/2025 2:36 PM EDT [facility] [place] Percent 7.3 % 06/26/2025 2:36 PM EDT [facility] Eos Percent 0.0 % 06/26/2025 2:36 PM EDT [facility] Baso Percent 0.5 % 06/26/2025 2:36 PM EDT [facility] Neut # 2.4 1.6 - 6.1 x10(3)/[facility] 06/26/2025 2:36 PM EDT [facility] Comment:Neutrophils equals s egs plus bands IMMGRAN# 0.0 0.0 - 0.1 x10(3)/[facility] 06/26/2025 2:36 PM EDT [facility] Comment:Automated count of m etamyelocytes, myelocytes and promyelocytes. An absolute IG <0.1 is reported as 0.0. Lymph # 1.4 1.2 - 3.9 x10(3)/[facility] 06/26/2025 2:36 PM EDT [facility] [place] # 0.3 0.3 - 0.9 x10(3)/[facility] 06/26/2025 2:36 PM EDT [facility] Eos# 0.0 0.0 - 0.5 x10(3)/[facility] 06/26/2025 2:36 PM EDT [facility] Baso # 0.0 0.0 - 0.1 x10(3)/mcL 06/26/2025 2:36 PM EDT [facility] Blood VENOUS BLOOD / Unknown Venipuncture / Unknown 06/26/2025 2:27 PM EDT 06/26/2025 2:34 PM EDT us Jacob Horowitz MD HEMATOLOGY ORDERABLES Final Resu lt Performing Organization Address [facility] de Phone Number [facility] [address] [place] [address] * POTASSIUM LEVEL (06/26/2025 2:27 PM EDT) Potassium 4.5 3.5 - 5.0 mmol/L 06/26/2025 2:46 PM EDT [facility] Blood VENOUS BLOOD / Unknown Venipuncture / Unknown 06/26/2025 2:27 PM EDT 06/26/2025 2:34 PM EDT us Jacob Horowitz MD CHEMISTRY ORDERABLES Final Resul t Performing Organization Address [facility] de Phone Number [facility] [address] [place] [address] * US RENAL AND BLADDER (06/26/2025 12:44 PM EDT) Anatomical Region Laterality Modality Abdomen, Pelvis Ultrasound 06/26/2025 12:4 4 PM EDT Impressions 06/26/2025 1:09 PM EDT No evidence of active obstructive uropathy or other acute finding. - Note: Radiology results need to be interpreted within a comprehensive clinical context. If you have questions about the radiology report, please contact the office of the ordering clinician. Narrative 06/26/2025 1:09 PM EDT US KIDNEYS AND BLADDER, 06/26/2025 12:44 PM CLINICAL HISTORY: -Acute urinary retention. COMPARISON: None. PROCEDURE COMMENTS: Routine sonographic evaluation of the kidneys and bladder with operations support representative images and electric milkers installer notes sent to PACS for radiologist review. FINDINGS: RIGHT: 10.5 x 4.6 x 4.9 cm. No hydronephrosis, solid-appearing mass, or shadowing stone. Exophytic cysts are present including a 4 x 3 x 3 cm cyst and a 1.8 x 1.7 x 1.6 cm cyst. LEFT: 10.5 x 4.7 x 3.7 cm. No hydronephrosis, solid-appearing mass, or shadowing stone. Multiple cysts are noted. PELVIS: Garrido catheter decompresses the bladder.d Other: Ascites is noted within all quadrants, small. Procedure Note Farhad Noonan MD - 06/26/2025 US KIDNEYS AND BLADDER, 06/26/2025 12:44 PM CLINICAL HISTORY: -Acute urinary retention. COMPARISON: None. PROCEDURE COMMENTS: Routine sonographic evaluation of the kidneys andbladder with operations support representative images and electric milkers installer notes sent to PACS forradiologist review. FINDINGS: RIGHT: 10.5 x 4.6 x 4.9 cm. No hydronephrosis, solid-appearing mass,or shadowing stone. Exophytic cysts are present including a 4 x 3 x 3 cm cystand a 1.8 x 1.7 x 1.6 cm cyst. LEFT: 10.5 x 4.7 x 3.7 cm. No hydronephrosis, solid-appearing mass, or shadowing stone. Multiple cysts are noted. PELVIS: Garrido catheter decompresses the bladder.d Other: Ascites is noted within all quadrants, small. IMPRESSION: No evidence of active obstructive uropathy or other acute finding. - Note: Radiology results need to be interpreted within a comprehensiveclinical context. If you have questions about the radiology report, please contactthe office of the ordering clinician. us Antoine Ferraro PA-C [facility] US ORDERABLES F inal Result * (ABNORMAL) GLUCOSE METER POC (06/26/2025 12:39 PM EDT) [facility] Glucose Meter POC 119(H) 70 - 100 mg/dL 06/26/2025 12:40 PM EDT [facility] Sample Type Capillary 06/26/2025 12:40 PM EDT [facility] Patient Status Non-Critical Patient 06/26/2025 12:40 PM EDT [facility] Blood BLOOD SPECIMEN / Unknown 06/26/2025 12:39 PM EDT 06/26/2025 12:40 PM EDT us Duong Vitale MD POINT OF CARE TEST ORDERABLES Final Result Performing Organization Address City/[facility]/ZIP Co de Phone Number [facility] [address] [phone] * ECG AND WAVEFORMS - TELEMETRY (06/26/2025 7:51 AM EDT) ECG INTERPRET Atrial Fib [facility] 06/26/2025 7:51 AM EDT Narrative [facility] - 06/26/2025 7:51 AM EDT See Clinical Report link for waveform capture us Unknown Provider POINT OF CARE CARDIOLOGY Final Result Performing Organization Address [facility]/ZIP Co de Phone Number [facility] [address] [place] [address] * (ABNORMAL) BASIC METABOLIC PANEL (06/26/2025 6:31 AM EDT) [facility] Sodium 138 136 - 145 mmol/L 06/26/2025 7:09 AM EDT [facility] Potassium 3.9 3.5 - 5.0 mmol/L 06/26/2025 7:09 AM EDT [facility] Chloride 106 98 - 107 mmol/L 06/26/2025 7:09 AM EDT [facility] Total CO2 22 22 - 29 mmol/L 06/26/2025 7:09 AM EDT [facility] Anion Gap 10 7 - 16 mmol/L 06/26/2025 7:09 AM EDT [facility] Calcium 8.3(L) 8.8 - 10.4 mg/dL 06/26/2025 7:09 AM EDT [facility] Glucose Lvl 95 70 - 99 mg/dL 06/26/2025 7:09 AM EDT [facility] BUN 13 8 - 23 mg/dL 06/26/2025 7:09 AM EDT [facility] Creatinine 0.87 0.51 - 1.30 mg/dL 06/26/2025 7:09 AM EDT [facility] eGFR (CKD-EPIcr 2020) 65 >=60 mL/min/1.7 3 m2 06/26/2025 7:09 AM EDT [facility] Comment:Estimated GFR was ca lculated using the CKD-EPIcr (2020) equation refit without race. The equation is recommended by the [employer] - [place] [employer]ph[employer] Task Force. Blood VENOUS BLOOD / Unknown Venipuncture / Unknown 06/26/2025 6:31 AM EDT 06/26/2025 6:37 AM EDT Spencer Luna APRN CHEMISTRY ORDERABLES Fin al Result Performing Organization Address [facility] Co de Phone Number [facility] [address] [place] [address] * (ABNORMAL) NT PROBNP (06/26/2025 6:31 AM EDT) Pathologist [facility] NT Pro-BNP 7,743(H) <=624 pg/mL 06/26/2025 7:09 AM EDT [facility] Blood VENOUS BLOOD / Unknown Venipuncture / Unknown 06/26/2025 6:31 AM EDT 06/26/2025 6:37 AM EDT Narrative [facility] - 06/26/2025 7:09 AM EDT An NT pro-BNP level less than 300 pg/mL in any patient, regardless of age, effectively rules out acute CHF with a 99% negative predictive value. Ingestion of angie doses of biotin (>5 mg/day) taken within 8 hours of drawing blood sample can interfere with this immunoassay test. us Duong Vitale MD CHEMISTRY ORDERABLES Final Re sult Performing Organization Address [facility] Co de Phone Number [facility] [address] [place] [address] * (ABNORMAL) CBC (06/26/2025 6:31 AM EDT) WBC 4.6 3.7 - 10.3 x10(3)/[facility] 06/26/2025 6:42 AM EDT [facility] RBC 2.48(L) 3.90 - 5.20 x10(6)/[facility] 06/26/2025 6:42 AM EDT [facility] Hgb 9.0(L) 11.2 - 15.7 g/dL 06/26/2025 6:42 AM EDT [facility] Hct 27.4(L) 34.0 - 45.0 % 06/26/2025 6:42 AM EDT [facility] MCV 110.5(H) 80.0 - 100.0 fL 06/26/2025 6:42 AM EDT [facility] MCH 36.3(H) 26.0 - 34.0 pg 06/26/2025 6:42 AM EDT [facility] MCHC 32.8 30.7 - 35.5 g/dL 06/26/2025 6:42 AM EDT [facility] RDW 19.3(H) <=14.9 % 06/26/2025 6:42 AM EDT [facility] Platelet 87(L) 155 - 369 x10(3)/[facility] 06/26/2025 6:42 AM EDT [facility] MPV 12.9(H) 8.8 - 12.5 fL 06/26/2025 6:42 AM EDT [facility] Blood VENOUS BLOOD / Unknown Venipuncture / Unknown 06/26/2025 6:31 AM EDT 06/26/2025 6:37 AM EDT us Duong Vitale MD HEMATOLOGY ORDERABLES Final R esult [facility] [address] [place] [address] * GLUCOSE METER POC (06/26/2025 6:30 AM EDT) Glucose Meter POC 92 70 - 100 mg/dL 06/26/2025 6:32 AM EDT [facility] Sample Type Capillary 06/26/2025 6:32 AM EDT [facility] Patient Status Non-Critical Patient 06/26/2025 6:32 AM EDT [facility] Blood BLOOD SPECIMEN / Unknown 06/26/2025 6:30 AM EDT 06/26/2025 6:32 AM EDT Duong Vitale MD POINT OF CARE TEST ORDERABLES Final Result Performing Organization Address City/[facility] Co de Phone Number [facility] [address] [place] [address] * GLUCOSE METER POC (06/26/2025 12:14 AM EDT) Glucose Meter POC 91 70 - 100 mg/dL 06/26/2025 12:15 AM EDT [facility] Sample Type Capillary 06/26/2025 12:15 AM EDT [facility] Patient Status Non-Critical Patient 06/26/2025 12:15 AM EDT [facility] Blood BLOOD SPECIMEN / Unknown 06/26/2025 12:14 AM EDT 06/26/2025 12:15 AM EDT Duong Vitale MD POINT OF CARE TEST ORDERABLES Final Result Performing Organization Address [facility] de Phone Number [facility] [address] [place] [address] * ECG AND WAVEFORMS - TELEMETRY (06/25/2025 7:20 PM EDT) ECG INTERPRET Atrial Fib [facility] 06/25/2025 7:20 PM EDT Narrative [facility] - 06/25/2025 7:20 PM EDT See Clinical Report link for waveform capture Unknown Provider POINT OF CARE CARDIOLOGY Final Result Performing Organization Address City/[facility] Co de Phone Number [facility] [address] [place] [address] * GLUCOSE METER POC (06/25/2025 6:14 PM EDT) Glucose Meter POC 80 70 - 100 mg/dL 06/25/2025 6:16 PM EDT [facility] Sample Type Capillary 06/25/2025 6:16 PM EDT [facility] Patient Status Non-Critical Patient 06/25/2025 6:16 PM EDT [facility] Blood BLOOD SPECIMEN / Unknown 06/25/2025 6:14 PM EDT 06/25/2025 6:16 PM EDT us Duong Vitale MD POINT OF CARE TEST ORDERABLES Final Result Performing Organization Address [facility] Co de Phone Number [facility] [address] [place] [address] * POTASSIUM LEVEL (06/25/2025 4:44 PM EDT) [facility] Potassium 4.2 3.5 - 5.0 mmol/L 06/25/2025 5:03 PM EDT [facility] Blood VENOUS BLOOD / Unknown Venipuncture / Unknown 06/25/2025 4:44 PM EDT 06/25/2025 4:51 PM EDT us Gabby Heredia APRN CHEMISTRY ORDERABLES Final Resul t Performing Organization Address [facility] de Phone Number [facility] [address] [place] [address] * EEG ED/ICU REMOTE MONITORING (06/25/2025 3:28 PM EDT) Anatomical Region Laterality Modality Head Electroencephalo graphy Narrative 07/02/2025 12:13 PM EDT REFERRING MD: Dr. Esqueda DATES OF STUDY: 06-24-2025 (00:50) through 06-24-2025 (04:01) REASON FOR EEG: Eval for evidence of electrographic seizure activity CURRENT MEDICATIONS: Not provided for this study DESCRIPTION OF PROCEDURE: This EEG was obtained using a 10 lead EEG system positioned circumferentially without any parasagittal coverage (rapid EEG - [employer]ib[employer] device). Computer selected EEG is reviewed as well as background features and all clinically significant events. TECHNICAL SUMMARY: This is a 10 channel referential and bipolar EEG recorded in a digital format on the [employer] device. This device is designed to detect the presence or absence of ongoing seizure activity and is not to be utilized for localization purposes. While awake and maximally stimulated the background rhythm consisted of a well developed, well regulated moderate voltage activity in the 11 Hz frequency range, maximum over the posterior head regions and reactive to eye opening and closure. ~3.5 HOUR CONTINUOUS EEG INTERPRETATION: This prolonged EEG did not detect the presence of active electrographic seizure activity. The seizure burden did not rise to even the 10%ile. This EEG was performed on a device designed to detect the presence or absence of ongoing seizure activity. This study is not to be used for any other purposes. If a routine EEG would typically be ordered in this clinical scenario or further information is desired I would recommend placing an order for an EEG to be completed with the 10-20 international system for improved spatial resolution and parasagittal coverage. Reading MD: Clyde Barr MD Donnie Esqueda MD IMG EEG ORDERABLES Final Resu lt * (ABNORMAL) GLUCOSE METER POC (06/25/2025 12:30 PM EDT) [facility] Glucose Meter POC 102(H) 70 - 100 mg/dL 06/25/2025 12:32 PM EDT [facility] Sample Type Capillary 06/25/2025 12:32 PM EDT [facility] Patient Status Non-Critical Patient 06/25/2025 12:32 PM EDT [facility] Blood BLOOD SPECIMEN / Unknown 06/25/2025 12:30 PM EDT 06/25/2025 12:32 PM EDT Duong Vitale MD POINT OF CARE TEST ORDERABLES Final Result [facility] [address] [place], [place] [id number] * (ABNORMAL) BLOOD GAS, VENOUS (06/25/2025 10:58 AM EDT) pH Venous 7.42 7.32 - 7.42 pH 06/25/2025 11:14 AM EDT [facility] pCO2 Venous 37(L) 41 - 51 mmHg 06/25/2025 11:14 AM EDT [facility] pO2 Venous 50(H) 25 - 40 mmHg 06/25/2025 11:14 AM EDT [facility] Comment:Interpret with cauti on. Not recommended to evaluate patient's oxygenation status. Base Excess Martín 0.0 mmol/L 11:14 AM EDT [facility] Hco3 Venous 24.3 24.0 - 28.0 mmol/L 06/25/2025 11:14 AM EDT [facility] CO2 Total Martín 23(L) 25 - 29 mmol/L 06/25/2025 11:14 AM EDT [facility] O2 Sat. Venous 83.5(H) 40.0 - 70.0 % 06/25/2025 11:14 AM EDT [facility] Inspired O2 25 06/25/2025 11:14 AM EDT [facility] Blood VENOUS STRUCTURE / Unknown Line / Unknown 06/25/2025 10:58 AM EDT 06/25/2025 11:06 AM EDT us Gabby Heredia [employer] CHEMISTRY ORDERABLES Final Resul t [facility] [address] [place] [address] * GLUCOSE METER POC (06/25/2025 8:20 AM EDT) Glucose Meter POC 98 70 - 100 mg/dL 06/25/2025 8:23 AM EDT [facility] Sample Type Arterial 06/25/2025 8:23 AM EDT [facility] Patient Status Non-Critical Patient 06/25/2025 8:23 AM EDT [facility] Blood BLOOD SPECIMEN / Unknown 06/25/2025 8:20 AM EDT 06/25/2025 8:23 AM EDT us Duong Vitale MD POINT OF CARE TEST ORDERABLES Final Result [facility] [address] [phone] * ECG AND WAVEFORMS - TELEMETRY (06/25/2025 7:40 AM EDT) [facility] ECG INTERPRET Atrial Fib [facility] 06/25/2025 7:40 AM EDT Narrative [facility] - 06/25/2025 7:40 AM EDT See Clinical Report link for waveform capture us Unknown Provider POINT OF CARE CARDIOLOGY Final Result Performing Organization Address [facility] Co de Phone Number [facility] [address] [phone] * (ABNORMAL) BASIC METABOLIC PANEL (06/25/2025 6:31 AM EDT) [facility] Sodium 139 136 - 145 mmol/L 06/25/2025 7:09 AM EDT [facility] Potassium 3.4(L) 3.5 - 5.0 mmol/L 06/25/2025 7:09 AM EDT [facility] Chloride 106 98 - 107 mmol/L 06/25/2025 7:09 AM EDT [facility] Total CO2 21(L) 22 - 29 mmol/L 06/25/2025 7:09 AM EDT [facility] Anion Gap 12 7 - 16 mmol/L 06/25/2025 7:09 AM EDT [facility] Calcium 8.5(L) 8.8 - 10.4 mg/dL 06/25/2025 7:09 AM EDT [facility] Glucose Lvl 95 70 - 99 mg/dL 06/25/2025 7:09 AM EDT [facility] BUN 16 8 - 23 mg/dL 06/25/2025 7:09 AM EDT [facility] Creatinine 1.05 0.51 - 1.30 mg/dL 06/25/2025 7:09 AM EDT [facility] eGFR (CKD-EPIcr 2020) 52(L) >=60 mL/min/1.7 3 m2 06/25/2025 7:09 AM EDT [facility] Comment:Estimated GFR was ca lculated using the CKD-EPIcr (2020) equation refit without race. The equation is recommended by the [employer] - [place] [employer] Neph[employer] Task Force. Blood VENOUS BLOOD / Unknown Venipuncture / Unknown 06/25/2025 6:31 AM EDT 06/25/2025 6:45 AM EDT Spencer Luna APRN CHEMISTRY ORDERABLES Fin al Result Performing Organization Address [facility]/ZIP Co de Phone Number [facility] [address] [place] [address] * (ABNORMAL) NT PROBNP (06/25/2025 6:31 AM EDT) NT Pro-BNP 5,011(H) <=624 pg/mL 06/25/2025 7:09 AM EDT [facility] Blood VENOUS BLOOD / Unknown Venipuncture / Unknown 06/25/2025 6:31 AM EDT 06/25/2025 6:45 AM EDT Narrative [facility] - 06/25/2025 7:09 AM EDT An NT pro-BNP level less than 300 pg/mL in any patient, regardless of age, effectively rules out acute CHF with a 99% negative predictive value. Ingestion of angie doses of biotin (>5 mg/day) taken within 8 hours of drawing blood sample can interfere with this immunoassay test. us Duong Vitale MD CHEMISTRY ORDERABLES Final Re sult Performing Organization Address [facility]/ZIP Co de Phone Number [facility] [address] [place] [address] * (ABNORMAL) CBC (06/25/2025 6:31 AM EDT) WBC 4.2 3.7 - 10.3 x10(3)/mcL 06/25/2025 6:47 AM EDT [facility] RBC 2.12(L) 3.90 - 5.20 x10(6)/mcL 06/25/2025 6:47 AM EDT [facility] Hgb 7.9(L) 11.2 - 15.7 g/dL 06/25/2025 6:47 AM EDT [facility] Hct 23.5(L) 34.0 - 45.0 % 06/25/2025 6:47 AM EDT [facility] MCV 110.8(H) 80.0 - 100.0 fL 06/25/2025 6:47 AM EDT [facility] MCH 37.3(H) 26.0 - 34.0 pg 06/25/2025 6:47 AM EDT [facility] MCHC 33.6 30.7 - 35.5 g/dL 06/25/2025 6:47 AM EDT [facility] RDW 19.9(H) <=14.9 % 06/25/2025 6:47 AM EDT [facility] Platelet 63(L) 155 - 369 x10(3)/mcL 06/25/2025 6:47 AM EDT [facility] MPV 13.0(H) 8.8 - 12.5 fL 06/25/2025 6:47 AM EDT [facility] Blood VENOUS BLOOD / Unknown Venipuncture / Unknown 06/25/2025 6:31 AM EDT 06/25/2025 6:45 AM EDT us Duong Vitale MD HEMATOLOGY ORDERABLES Final R esult [facility] [address] [place], [place] [id number] * GLUCOSE METER POC (06/25/2025 6:24 AM EDT) [facility] Glucose Meter POC 96 70 - 100 mg/dL 06/25/2025 6:25 AM EDT [facility] Sample Type Capillary 06/25/2025 6:25 AM EDT [facility] Patient Status Non-Critical Patient 06/25/2025 6:25 AM EDT [facility] Blood BLOOD SPECIMEN / Unknown 06/25/2025 6:24 AM EDT 06/25/2025 6:25 AM EDT us Duong Vitale MD POINT OF CARE TEST ORDERABLES Final Result [facility] [address] [place] [address] * GLUCOSE METER POC (06/25/2025 1:14 AM EDT) Glucose Meter POC 76 70 - 100 mg/dL 06/25/2025 1:16 AM EDT [facility] Sample Type Capillary 06/25/2025 1:16 AM EDT [facility] Patient Status Non-Critical Patient 06/25/2025 1:16 AM EDT [facility] Blood BLOOD SPECIMEN / Unknown 06/25/2025 1:14 AM EDT 06/25/2025 1:16 AM EDT us Duong Vitale MD POINT OF CARE TEST ORDERABLES Final Result Performing Organization Address City/[facility]/ZIP Co de Phone Number [facility] [address] [place] [address] * GLUCOSE METER POC (06/24/2025 8:07 PM EDT) Glucose Meter POC 84 70 - 100 mg/dL 06/24/2025 8:09 PM EDT [facility] Sample Type Capillary 06/24/2025 8:09 PM EDT [facility] Patient Status Non-Critical Patient 06/24/2025 8:09 PM EDT [facility] Blood BLOOD SPECIMEN / Unknown 06/24/2025 8:07 PM EDT 06/24/2025 8:09 PM EDT us Duong Vitale MD POINT OF CARE TEST ORDERABLES Final Result Performing Organization Address City/[facility]/ZIP Co de Phone Number [facility] [address] [place] [address] * ECG AND WAVEFORMS - TELEMETRY (06/24/2025 7:53 PM EDT) ECG INTERPRET Atrial Fib [facility] 06/24/2025 7:53 PM EDT Narrative [facility] - 06/24/2025 7:53 PM EDT See Clinical Report link for waveform capture us Unknown Provider POINT OF CARE CARDIOLOGY Final Result Performing Organization Address City/[facility]/ZIP Co de Phone Number [facility] [address] [place] [address] * (ABNORMAL) GLUCOSE METER POC (06/24/2025 5:10 PM EDT) Glucose Meter POC 129(H) 70 - 100 mg/dL 06/24/2025 5:11 PM EDT [facility] Sample Type Capillary 06/24/2025 5:11 PM EDT [facility] Patient Status Non-Critical Patient 06/24/2025 5:11 PM EDT [facility] Blood BLOOD SPECIMEN / Unknown 06/24/2025 5:10 PM EDT 06/24/2025 5:11 PM EDT us Duong Vitale MD POINT OF CARE TEST ORDERABLES Final Result Performing Organization Address City/[facility]/ZIP Co de Phone Number [facility] [address] [place] [address] * (ABNORMAL) GLUCOSE METER POC (06/24/2025 4:19 PM EDT) Glucose Meter POC 65(L) 70 - 100 mg/dL 06/24/2025 4:22 PM EDT [facility] Sample Type Capillary 06/24/2025 4:22 PM EDT [facility] Patient Status Non-Critical Patient 06/24/2025 4:22 PM EDT [facility] Blood BLOOD SPECIMEN / Unknown 06/24/2025 4:19 PM EDT 06/24/2025 4:22 PM EDT us Duong Vitale MD POINT OF CARE TEST ORDERABLES Final Result [facility] [address] [place] [address] * CT HEAD WO CONTRAST (06/24/2025 2:37 PM EDT) Anatomical Region Laterality Modality Head Computed Tomogra phy 06/24/2025 2:37 PM EDT Impressions 06/24/2025 3:10 PM EDT 1. No acute intracranial abnormality. 2. Right paranasal sinus disease. - Note: Radiology results need to be interpreted within a comprehensive clinical context. If you have questions about the radiology report, please contact the office of the ordering clinician. Narrative 06/24/2025 3:[address] HEAD WO CONTRAST 06/24/2025 2:37 PM CLINICAL HISTORY: -Stroke. COMPARISON: 06/12/2025. PROCEDURE COMMENTS: Routine noncontrast head CT with multiplanar reconstructions. Dose 1 : CT DLP Total : 888.45 mGycm DLP Spiral Max : 886.23 mGycm Maximum CTDI Vol : 45.72 mGy FINDINGS: No evidence of acute stroke, mass, or hemorrhage. No fracture or extra-axial collection. Age-related changes noted, including atrophy and findings compatible with chronic small vessel disease, similar to the prior. 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 Included portions of the paranasal sinuses, mastoids, and orbits are notable for right paranasal sinus opacification. Procedure Note Reuben Lovell MD - 06/24/2025 CT HEAD WO CONTRAST 06/24/2025 2:37 PM CLINICAL HISTORY: -Stroke. COMPARISON: 06/12/2025. PROCEDURE COMMENTS: Routine noncontrast head CT with multiplanar reconstructions. Dose 1 : CT DLP Total : 888.45 mGycm DLP Spiral Max : 886.23 mGycm Maximum CTDI Vol : 45.72 mGy FINDINGS: No evidence of acute stroke, mass, or hemorrhage. No fracture orextra-axial collection. Age-related changes noted, including atrophy and findingscompatible with chronic small vessel disease, similar to the prior. 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 Included portions of the paranasal sinuses, mastoids, and orbits arenotable for right paranasal sinus opacification. IMPRESSION: 1. No acute intracranial abnormality. 2. Right paranasal sinus disease. - Note: Radiology results need to be interpreted within a comprehensiveclinical context. If you have questions about the radiology report, please contactthe office of the ordering clinician. Rusty Sawyer MD IMG CT ORDERABLES Mita l Result * EC ECHOCARDIOGRAM LIMITED (06/24/2025 12:32 PM EDT) AORTIC STENOSIS no PYRAMIS MITRAL REGURGITATION mild PYRAMIS Ejection Fraction 45-50% PYRAMIS LV DIASTOLIC PLAX 4.01 cm PYRAMIS Anatomical Region Laterality Modality Electrocardiogra phy 06/24/2025 11:5 0 AM EDT Impressions 06/24/2025 2:43 PM EDT Conclusions * Left ventricular function is mildly reduced with an estimated ejection fraction of 45-50%. * The left ventricular diastolic function is consistent with diastolic dysfunction and indeterminate left atrial pressure. * There is mild mitral valve regurgitation. * There is severe tricuspid valve regurgitation. Narrative Procedure Note Sukh Garner DO - 06/24/2025 IMPRESSION Conclusions * Left ventricular function is mildly reduced with an estimatedejection fraction of 45-50%. * The left ventricular diastolic function is consistent with diastolic dysfunction and indeterminate left atrial pressure. * There is mild mitral valve regurgitation. * There is severe tricuspid valve regurgitation. Sukh Garner DO IMG ECHO ORDERABLES Final Re sult * PHOSPHORUS LEVEL (06/24/2025 12:25 PM EDT) Phosphorus 4.1 2.5 - 4.5 mg/dL 06/24/2025 12:57 PM EDT [facility] Blood VENOUS BLOOD / Unknown Venipuncture / Unknown 06/24/2025 12:25 PM EDT 06/24/2025 12:34 PM EDT Spencer Luna [employer] CHEMISTRY ORDERABLES Fin al Result Performing Organization Address City/[facility] Co de Phone Number [facility] [address] [place] [address] * (ABNORMAL) MAGNESIUM LEVEL (06/24/2025 12:25 PM EDT) Magnesium 3.0(H) 1.6 - 2.4 mg/dL 06/24/2025 12:57 PM EDT [facility] Blood VENOUS BLOOD / Unknown Venipuncture / Unknown 06/24/2025 12:25 PM EDT 06/24/2025 12:34 PM EDT Spencer Luna [employer] CHEMISTRY ORDERABLES Fin al Result Performing Organization Address [facility] de Phone Number [facility] [address] [place] [address] * (ABNORMAL) GLUCOSE METER POC (06/24/2025 12:16 PM EDT) Glucose Meter POC 112(H) 70 - 100 mg/dL 06/24/2025 12:18 PM EDT [facility] Sample Type Capillary 06/24/2025 12:18 PM EDT [facility] Patient Status Non-Critical Patient 06/24/2025 12:18 PM EDT [facility] Blood BLOOD SPECIMEN / Unknown 06/24/2025 12:16 PM EDT 06/24/2025 12:18 PM EDT Duong Vitale MD POINT OF CARE TEST ORDERABLES Final Result Performing Organization Address [facility] Co de Phone Number [facility] [address] [place] [address] * SCANNED EKG (06/24/2025 10:55 AM EDT) Anatomical Region Laterality Modality Other 06/24/2025 10:5 5 AM EDT us Unknown Provider IMG ECG ORDERABLES Final Result * (ABNORMAL) GLUCOSE METER POC (06/24/2025 8:15 AM EDT) [facility] Glucose Meter POC 236(H) 70 - 100 mg/dL 06/24/2025 8:17 AM EDT [facility] Sample Type Capillary 06/24/2025 8:17 AM EDT [facility] Patient Status Non-Critical Patient 06/24/2025 8:17 AM EDT [facility] Blood BLOOD SPECIMEN / Unknown 06/24/2025 8:15 AM EDT 06/24/2025 8:17 AM EDT us Duong Vitale MD POINT OF CARE TEST ORDERABLES Final Result Performing Organization Address City/State/[facility] Co de Phone Number [facility] [address] [place] [phone] * (ABNORMAL) BLOOD GAS ARTERIAL (06/24/2025 5:26 AM EDT) pH 7.45 7.35 - 7.45 pH 06/24/2025 5:39 AM EDT [facility] pCO2 31(L) 35 - 45 mmHg 06/24/2025 5:39 AM EDT [facility] pO2 86 80 - 100 mmHg 06/24/2025 5:39 AM EDT [facility] HCO3 21.8(L) 22.0 - 26.0 mmol/L 06/24/2025 5:39 AM EDT [facility] TCO2 21(L) 22 - 29 mmol/L 06/24/2025 5:39 AM EDT [facility] Base Excess -1.8 -2.0 - 3.0 mmol/L 06/24/2025 5:39 AM EDT [facility] O2 Sat 97.7 95.0 - 98.0 % 06/24/2025 5:39 AM EDT [facility] Inspired O2 50 06/24/2025 5:39 AM EDT [facility] P/F Ratio 172(L) 300 - 500 mmHg 06/24/2025 5:39 AM EDT [facility] Comment: P/F ratio alone cannot diagnose ARDS. However, the following scale may be used to help classify Adult Respiratory Distress Syndrome (ARDS) severity: 200-300: Mild ARDS 100-199: Moderate ARDS <100: Severe ARDS Blood ARTERIAL BLOOD / Unknown Arterial / Unknown 06/24/2025 5:26 AM EDT 06/24/2025 5:32 AM EDT John Rich MD CHEMISTRY ORDERABLES Final Resu lt Performing Organization Address [facility] Co de Phone Number [facility] [address] [place] [address] * T4, FREE (THYROXINE) (06/24/2025 5:10 AM EDT) Free T4 0.98 0.80 - 1.80 ng/dL 06/24/2025 3:36 PM EDT [facility] Blood VENOUS BLOOD / Unknown Venipuncture / Unknown 06/24/2025 5:10 AM EDT 06/24/2025 5:32 AM EDT Narrative [facility] - 06/24/2025 3:36 PM EDT Ingestion of angie doses of biotin (>5 mg/day) taken within 8 hours of drawing blood sample can interfere with this immunoassay test. Lianet Harris APRN CHEMISTRY ORDERABLES Fi nal Result Performing Organization Address [facility] de Phone Number [facility] [address] [facility] , [place] [address] * (ABNORMAL) TSH REFLEX TO FT4 (06/24/2025 5:10 AM EDT) TSH Reflex 10.400(H) 0.270 - 4.200 mcIU/mL 06/24/2025 2:51 PM EDT [facility] Blood VENOUS BLOOD / Unknown Venipuncture / Unknown 06/24/2025 5:10 AM EDT 06/24/2025 5:[address] [facility] - 06/24/2025 2:51 PM EDT Ingestion of angie doses of biotin (>5 mg/day) taken within 8 hours of drawing blood sample can interfere with this immunoassay test. Lianet Harris APRN CHEMISTRY ORDERABLES Fi nal Result Performing Organization Address City/[facility]/ZIP Co de Phone Number [facility] [address] , [place] [address] * TRIGLYCERIDES (06/24/2025 5:10 AM EDT) Triglyceride 107 <150 mg/dL 06/24/2025 8:05 AM EDT [facility] Comment: < 150 Normal 150 - 199 Borderline High 200 - 499 High >= 500 Very High Blood VENOUS BLOOD / Unknown Venipuncture / Unknown 06/24/2025 5:10 AM EDT 06/24/2025 5:32 AM EDT Donnie Esqueda MD CHEMISTRY ORDERABLES Final Re sult Performing Organization Address [facility] Co de Phone Number [facility] [address] [place] [address] , [place] [address] * (ABNORMAL) NT PROBNP (06/24/2025 5:10 AM EDT) NT Pro-BNP 7,992(H) <=624 pg/mL 06/24/2025 5:53 AM EDT [facility] Blood VENOUS BLOOD / Unknown Venipuncture / Unknown 06/24/2025 5:10 AM EDT 06/24/2025 5:32 AM EDT Narrative [facility] - 06/24/2025 5:53 AM EDT An NT pro-BNP level less than 300 pg/mL in any patient, regardless of age, effectively rules out acute CHF with a 99% negative predictive value. Ingestion of angie doses of biotin (>5 mg/day) taken within 8 hours of drawing blood sample can interfere with this immunoassay test. us Duong Vitale MD CHEMISTRY ORDERABLES Final Re sult [facility] [address] [place] [address] * (ABNORMAL) COMPREHENSIVE METABOLIC PANEL (06/24/2025 5:10 AM EDT) Sodium 136 136 - 145 mmol/L 06/24/2025 5:53 AM EDT [facility] Potassium 4.1 3.5 - 5.0 mmol/L 06/24/2025 5:53 AM EDT [facility] Chloride 103 98 - 107 mmol/L 06/24/2025 5:53 AM EDT [facility] Total CO2 21(L) 22 - 29 mmol/L 06/24/2025 5:53 AM EDT [facility] Anion Gap 12 7 - 16 mmol/L 06/24/2025 5:53 AM EDT [facility] Calcium 8.5(L) 8.8 - 10.4 mg/dL 06/24/2025 5:53 AM EDT [facility] Glucose Lvl 229(H) 70 - 99 mg/dL 06/24/2025 5:53 AM EDT [facility] BUN 16 8 - 23 mg/dL 06/24/2025 5:53 AM EDT [facility] Creatinine 1.17 0.51 - 1.30 mg/dL 06/24/2025 5:53 AM EDT [facility] Albumin 3.6 3.2 - 4.6 gm/dL 06/24/2025 5:53 AM EDT [facility] Total Protein 6.5 6.4 - 8.3 gm/dL 06/24/2025 5:53 AM EDT [facility] Bili Total 0.6 0.2 - 1.3 mg/dL 06/24/2025 5:53 AM EDT [facility] ALT 17 <=41 U/L 06/24/2025 5:53 AM EDT [facility] AST 31 <=40 U/L 06/24/2025 5:53 AM EDT [facility] Alk Phos 149(H) 36 - 123 U/L 06/24/2025 5:53 AM EDT [facility] eGFR (CKD-EPIcr 2020) 46(L) >=60 mL/min/1.7 3 m2 06/24/2025 5:53 AM EDT [facility] Comment:Estimated GFR was ca lculated using the CKD-EPIcr (2020) equation refit without race. The equation is recommended by the [employer] - [employer]ph[employer] Task Force. Blood VENOUS BLOOD / Unknown Venipuncture / Unknown 06/24/2025 5:10 AM EDT 06/24/2025 5:32 AM EDT us Duong Vitale MD CHEMISTRY ORDERABLES Final Re sult [facility] [address] [place], [place] [id number] * (ABNORMAL) CBC (06/24/2025 5:10 AM EDT) WBC 4.5 3.7 - 10.3 x10(3)/mcL 06/24/2025 5:34 AM EDT [facility] RBC 2.23(L) 3.90 - 5.20 x10(6)/mcL 06/24/2025 5:34 AM EDT [facility] Hgb 8.3(L) 11.2 - 15.7 g/dL 06/24/2025 5:34 AM EDT [facility] Hct 25.0(L) 34.0 - 45.0 % 06/24/2025 5:34 AM EDT [facility] MCV 112.1(H) 80.0 - 100.0 fL 06/24/2025 5:34 AM EDT [facility] MCH 37.2(H) 26.0 - 34.0 pg 06/24/2025 5:34 AM EDT [facility] MCHC 33.2 30.7 - 35.5 g/dL 06/24/2025 5:34 AM EDT [facility] RDW 20.0(H) <=14.9 % 06/24/2025 5:34 AM EDT [facility] Platelet 83(L) 155 - 369 x10(3)/mcL 06/24/2025 5:34 AM EDT [facility] MPV 12.8(H) 8.8 - 12.5 fL 06/24/2025 5:34 AM EDT [facility] Blood VENOUS BLOOD / Unknown Venipuncture / Unknown 06/24/2025 5:10 AM EDT 06/24/2025 5:32 AM EDT us Duong Vitale MD HEMATOLOGY ORDERABLES Final R esult Performing Organization Address City/[facility] Co de Phone Number [facility] [address] [place] [address] * (ABNORMAL) GLUCOSE METER POC (06/24/2025 5:05 AM EDT) [facility] Glucose Meter POC 208(H) 70 - 100 mg/dL 06/24/2025 5:07 AM EDT [facility] Sample Type Venous 06/24/2025 5:07 AM EDT [facility] Patient Status Critical Patient 06/24/2025 5:07 AM EDT [facility] Blood BLOOD SPECIMEN / Unknown 06/24/2025 5:05 AM EDT 06/24/2025 5:07 AM EDT Duong Vitale MD POINT OF CARE TEST ORDERABLES Final Result Performing Organization Address [facility] Co de Phone Number [facility] [address] [place] [address] * XR CHEST AP PORTABLE (06/24/2025 4:17 AM EDT) Anatomical Region Laterality Modality Chest Radiographic Barbie ging 06/24/2025 4:17 AM EDT Impressions 06/24/2025 4:22 AM EDT Positioning of the lines and tubes as described without pneumothorax or change from earlier today Note: Radiology results need to be interpreted within a comprehensive clinical context. If you have questions about the radiology report, please contact the office of the ordering clinician. Narrative 06/24/2025 4:22 AM EDT CLINICAL HISTORY: -CVC left IJ placement. COMPARISON: Earlier today. TECHNIQUE: XR CHEST AP PORTABLE on 06/24/2025 4:17 AM. FINDINGS: The tip and sidehole of the enteric tube are in the gastric body. The tip of the left jugular central line projects over the expected region of the lower SVC. There is no pneumothorax or additional change. Procedure Note Zurdo England MD - 06/24/2025 CLINICAL HISTORY: -CVC left IJ placement. COMPARISON: Earlier today. TECHNIQUE: XR CHEST AP PORTABLE on 06/24/2025 4:17 AM. FINDINGS: The tip and sidehole of the enteric tube are in the gastricbody. The tip of the left jugular central line projects over the expected region ofthe lower SVC. There is no pneumothorax or additional change. IMPRESSION: Positioning of the lines and tubes as described without pneumothorax or change from earlier today Note: Radiology results need to be interpreted within a comprehensiveclinical context. If you have questions about the radiology report, please contactthe office of the ordering clinician. Duong Vitale MD IMG DIAGNOSTIC IMAGING ORDERA BLES Final Result * (ABNORMAL) BLOOD GAS ARTERIAL (06/24/2025 2:25 AM EDT) pH 7.38 7.35 - 7.45 pH 06/24/2025 2:33 AM EDT [facility] pCO2 38 35 - 45 mmHg 06/24/2025 2:33 AM EDT [facility] pO2 56(L) 80 - 100 mmHg 06/24/2025 2:33 AM EDT [facility] HCO3 22.3 22.0 - 26.0 mmol/L 06/24/2025 2:33 AM EDT [facility] TCO2 21(L) 22 - 29 mmol/L 06/24/2025 2:33 AM EDT [facility] Base Excess -2.5(L) -2.0 - 3.0 mmol/L 06/24/2025 2:33 AM EDT [facility] O2 Sat 86.7(L) 95.0 - 98.0 % 06/24/2025 2:33 AM EDT [facility] Inspired O2 70 06/24/2025 2:33 AM EDT [facility] P/F Ratio 80(L) 300 - 500 mmHg 06/24/2025 2:33 AM EDT [facility] Comment: P/F ratio alone cannot diagnose ARDS. However, the following scale may be used to help classify Adult Respiratory Distress Syndrome (ARDS) severity: 200-300: Mild ARDS 100-199: Moderate ARDS <100: Severe ARDS Blood ARTERIAL BLOOD / Unknown Arterial / Unknown 06/24/2025 2:25 AM EDT 06/24/2025 2:29 AM EDT us Donnie Esqueda MD CHEMISTRY ORDERABLES Final Re sult [facility] [address] [place], [place] [id number] * XR CHEST AP PORTABLE (06/24/2025 12:59 AM EDT) Anatomical Region Laterality Modality Chest Radiographic Barbie ging 06/24/2025 12:5 9 AM EDT Impressions 06/24/2025 1:01 AM EDT 1. Positioning of the endotracheal tube as described. 2. Malpositioned enteric tube which should be removed and replaced Note: Radiology results need to be interpreted within a comprehensive clinical context. If you have questions about the radiology report, please contact the office of the ordering clinician. Narrative 06/24/2025 1:01 AM EDT CLINICAL HISTORY: -confirm ET tube placement. COMPARISON: Earlier today. TECHNIQUE: XR CHEST AP PORTABLE on 06/24/2025 12:59 AM. FINDINGS: The tip of the endotracheal tube is 4.8 cm above the nancy. The enteric tube is coiled in the upper esophagus and should be removed and replaced. There is no additional change. Procedure Note Zurdo England MD - 06/24/2025 CLINICAL HISTORY: -confirm ET tube placement. COMPARISON: Earlier today. TECHNIQUE: XR CHEST AP PORTABLE on 06/24/2025 12:59 AM. FINDINGS: The tip of the endotracheal tube is 4.8 cm above the nancy.The enteric tube is coiled in the upper esophagus and should be removed and replaced. There is no additional change. IMPRESSION: 1. Positioning of the endotracheal tube as described. 2. Malpositioned enteric tube which should be removed and replaced Note: Radiology results need to be interpreted within a comprehensiveclinical context. If you have questions about the radiology report, please contactthe office of the ordering clinician. us Donnie Esqueda MD [facility] DIAGNOSTIC IMAGING ORDERA BLES Final Result * XR CHEST AP PORTABLE (06/24/2025 12:26 AM EDT) Anatomical Region Laterality Modality Chest Radiographic Barbie ging 06/24/2025 12:2 6 AM EDT Impressions 06/24/2025 12:31 AM EDT Worsening pulmonary edema with enlarging pleural effusions Note: Radiology results need to be interpreted within a comprehensive clinical context. If you have questions about the radiology report, please contact the office of the ordering clinician. Narrative 06/24/2025 12:31 AM EDT CLINICAL HISTORY: -pulmonary edema. COMPARISON: Yesterday. TECHNIQUE: XR CHEST AP PORTABLE on 06/24/2025 12:26 AM. FINDINGS: Pulmonary edema is worsening and there are enlarging pleural effusions without a pneumothorax. There is atelectasis at the lung bases. The heart is enlarged. Procedure Note Zurdo England MD - 06/24/2025 CLINICAL HISTORY: -pulmonary edema. COMPARISON: Yesterday. TECHNIQUE: XR CHEST AP PORTABLE on 06/24/2025 12:26 AM. FINDINGS: Pulmonary edema is worsening and there are enlarging pleuraleffusions without a pneumothorax. There is atelectasis at the lung bases. The heartis enlarged. IMPRESSION: Worsening pulmonary edema with enlarging pleural effusions Note: Radiology results need to be interpreted within a comprehensiveclinical context. If you have questions about the radiology report, please contactthe office of the ordering clinician. us Donnie Esqueda MD [facility] DIAGNOSTIC IMAGING ORDERA BLES Final Result * EK EKG 12 LEAD (06/24/2025 12:05 AM EDT) Anatomical Region Laterality Modality Electrocardiogra phy 06/24/2025 7:30 AM EDT Impressions 06/24/2025 8:[address] 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: Reza : 1940 Requested By: DONNIE ESQUEDA Order Number: [id number] Reading MD: Sukh Garner Measurements Intervals [place] Rate: 54 P: 0 TN: 0 QRS: 39 QRSD: 89 T: 0 QT: 462 QTc: 438 Interpretive Statements ATRIAL FIBRILLATION WITH SLOW VENTRICULAR RESPONSE WITH ABERRANTCONDUCTION OR VENTRICULAR PREMATURE COMPLEXES LOW QRS VOLTAGE IN EXTREMITY LEADS [QRS DEFLECTION < 0.5 mV IN LIMBLEADS] NONSPECIFIC ST/T WAVE ABNORMALITY RATE HAS MARKEDLY DECREASED SINCE PRIOR Electronically Signed On 06-24-2025 08:09:24 EDT by Sukh Garner us Donnie Esqueda MD IMG ECG ORDERABLES Final Resu lt * (ABNORMAL) GLUCOSE METER POC (06/24/2025 12:04 AM EDT) Glucose Meter POC 143(H) 70 - 100 mg/dL 06/24/2025 12:06 AM EDT [facility] Sample Type Venous 06/24/2025 12:06 AM EDT [facility] Patient Status Critical Patient 06/24/2025 12:06 AM EDT [facility] Blood BLOOD SPECIMEN / Unknown 06/24/2025 12:04 AM EDT 06/24/2025 12:06 AM EDT us Duong Vitale MD POINT OF CARE TEST ORDERABLES Final Result Performing Organization Address City/[facility]/ZIP Co de Phone Number [facility] [address] [phone] * ECG AND WAVEFORMS - TELEMETRY (06/23/2025 11:59 PM EDT) ECG INTERPRET Sinus Bradycardia [facility] 06/23/2025 11:5 9 PM EDT Narrative [facility] - 06/24/2025 12:04 AM EDT qj Pause 3.57 See Clinical Report link for waveform capture us Unknown Provider POINT OF CARE CARDIOLOGY Final Result Performing Organization Address [facility] Co de Phone Number [facility] [address] [place] [address] * ECG AND WAVEFORMS - TELEMETRY (06/23/2025 11:59 PM EDT) ECG INTERPRET Sinus Bradycardia [facility] 06/23/2025 11:5 9 PM EDT Narrative [facility] - 06/24/2025 12:02 AM EDT qj Pause 3.57 See Clinical Report link for waveform capture us Unknown Provider POINT OF CARE CARDIOLOGY Final Result Performing Organization Address [facility] Co de Phone Number [facility] [address] [place] [address] * ECG AND WAVEFORMS - TELEMETRY (06/23/2025 11:59 PM EDT) ECG INTERPRET Atrial Fib [facility] 06/23/2025 11:5 9 PM EDT Narrative [facility] - 06/24/2025 12:00 AM EDT Afib/qj Pause 3.10 See Clinical Report link for waveform capture us Unknown Provider POINT OF CARE CARDIOLOGY Final Result Performing Organization Address [facility] Co de Phone Number [facility] [address] [place] [address] * ECG AND WAVEFORMS - TELEMETRY (06/23/2025 11:55 PM EDT) ECG INTERPRET Sinus Bradycardia [facility] 06/23/2025 11:5 5 PM EDT Narrative [facility] - 06/23/2025 11:56 PM EDT Pause 2.72 See Clinical Report link for waveform capture us Unknown Provider POINT OF CARE CARDIOLOGY Final Result Performing Organization Address [facility] de Phone Number [facility] [address] [place] [address] * ECG AND WAVEFORMS - TELEMETRY (06/23/2025 9:30 PM EDT) ECG INTERPRET Sinus Bradycardia [facility] 06/23/2025 9:30 PM EDT Narrative [facility] - 06/23/2025 9:34 PM EDT Pause 3.09 See Clinical Report link for waveform capture us Unknown Provider POINT OF CARE CARDIOLOGY Final Result Performing Organization Address [facility] de Phone Number [facility] [address] [place] [address] * ECG AND WAVEFORMS - TELEMETRY (06/23/2025 7:00 PM EDT) ECG INTERPRET Atrial Fib [facility] 06/23/2025 7:00 PM EDT Narrative [facility] - 06/23/2025 7:51 PM EDT Routine 1900/Frequent PVC/qj QRS 0.10 Pause 2.73 See Clinical Report link for waveform capture us Unknown Provider POINT OF CARE CARDIOLOGY Final Result Performing Organization Address City/[facility] Co de Phone Number [facility] [address] [place] [address] * ECG AND WAVEFORMS - TELEMETRY (06/23/2025 6:53 PM EDT) ECG INTERPRET Sinus Bradycardia [facility] 06/23/2025 6:53 PM EDT Narrative [facility] - 06/23/2025 6:55 PM EDT -HB QRS 0.06 See Clinical Report link for waveform capture us Unknown Provider POINT OF CARE CARDIOLOGY Final Result Performing Organization Address [facility] de Phone Number [facility] [address] [place] [address] * EXTRA HUITRON URINE CX (06/23/2025 5:11 PM EDT) Urine STRUCTURE OF URINARY TRACT PROPER / Unknown 06/23/2025 5:11 PM EDT 06/23/2025 5:29 PM EDT us Duong Vitale MD MICROBIOLOGY - GENERAL ORDERA BLES Final Result Performing Organization Address City/[facility] Co de Phone Number [facility] [address] [phone] * URINALYSIS REFLEX (06/23/2025 5:11 PM EDT) UA Color Yellow 06/23/2025 5:33 PM EDT [facility] UA Appear Clear Clear 06/23/2025 5:33 PM EDT [facility] UA Glucose Negative Negative mg/dL 06/23/2025 5:33 PM EDT [facility] UA Ketones Negative Negative mg/dL 06/23/2025 5:33 PM EDT [facility] UA Blood Negative Negative 06/23/2025 5:33 PM EDT [facility] UA pH 6.5 5.0 - 8.0 pH 06/23/2025 5:33 PM EDT [facility] UA Protein Negative Negative mg/dL 06/23/2025 5:33 PM EDT [facility] UA Urobilinogen Normal <=1 mg/dL 5:33 PM EDT [facility] UA Bili Negative Negative 06/23/2025 5:33 PM EDT [facility] UA Nitrite Negative Negative 06/23/2025 5:33 PM EDT [facility] UA Leuk Est Negative Negative 06/23/2025 5:33 PM EDT [facility] UA Spec Grav 1.011 1.001 - 1.035 no units 06/23/2025 5:33 PM EDT [facility] Comment:Reference range helga d for random specimens only. UA WBC 1 0 - 4 /HPF 06/23/2025 5:33 PM EDT [facility] UA RBC 1 0 - 3 /HPF 06/23/2025 5:33 PM EDT [facility] Urine STRUCTURE OF URINARY TRACT PROPER / Unknown 06/23/2025 5:11 PM EDT 06/23/2025 5:29 PM EDT us Duong Vitale MD URINE ORDERABLES Final Result [facility] [address] [phone] * ECG AND WAVEFORMS - TELEMETRY (06/23/2025 4:41 PM EDT) ECG INTERPRET Sinus Arrythmia [facility] 06/23/2025 4:41 PM EDT Narrative [facility] - 06/23/2025 4:45 PM EDT BIGEMINY ADMIT -HB QRS 0.09 See Clinical Report link for waveform capture us Unknown Provider POINT OF CARE CARDIOLOGY Final Result [facility] [address] [place] [address] * (ABNORMAL) TROPONIN-T HIGH SENSITIVITY 2HR (06/23/2025 4:11 PM EDT) [id number] 2HR 83(H) <14 ng/L 06/23/2025 4:36 PM EDT [facility] hs-cTnT 2Hr Delta from Baseline -9 <4 ng/L 06/23/2025 4:36 PM EDT [facility] Blood VENOUS BLOOD / Unknown Venipuncture / Unknown 06/23/2025 4:11 PM EDT 06/23/2025 4:14 PM EDT Narrative [facility] - 06/23/2025 4:36 PM EDT Ingestion of angie doses of biotin (>5 mg/day) taken within 8 hours of drawing blood sample can interfere with this immunoassay test. us Stephan Rodriguez MD CHEMISTRY ORDERABLES Final R esult [facility] [address] [place] [address] * CT ANGIOGRAM PULMONARY W CONTRAST (06/23/2025 2:57 PM EDT) Anatomical Region Laterality Modality Chest Computed Tomogra phy 06/23/2025 2:57 PM EDT Impressions 06/23/2025 3:12 PM EDT No acute pulmonary embolism. Bilateral pleural effusions and dependent opacities which may represent atelectasis - Note: Radiology results need to be interpreted within a comprehensive clinical context. If you have questions about the radiology report, please contact the office of the ordering clinician. Narrative 06/23/2025 3:[address] PULMONARY ANGIOGRAM, 06/23/2025 2:57 PM CLINICAL HISTORY: -Short of breath, elevated D-dimer, atrial fibrillation. COMPARISON: None. TECHNIQUE: PE protocol CT angiogram of the chest using Isovue 370 IV contrast as recorded in EPIC. 2-D multiplanar reconstructions and 3-D MIP reconstructions reviewed. Dose 1 : CT DLP Total : 109.65 mGycm DLP Spiral Max : 96.21 mGycm Maximum CTDI Vol : 9.53 mGy FINDINGS: Adequate visualization of the pulmonary arteries to the segmental/subsegmental level. No acute pulmonary embolism. No aortic arch aneurysm. No pneumothorax. Small left and [id number] right pleural effusions. Emphysema. Opacities dependently in the lower lobes. Impression deformity along the superior endplate of L2 and inferior endplate of T6. Some sclerosis suggesting these are likely remote. Coronary artery calcification: Severe. Procedure Note Juliane Gore MD - 06/23/2025 CT PULMONARY ANGIOGRAM, 06/23/2025 2:57 PM CLINICAL HISTORY: -Short of breath, elevated D-dimer, atrialfibrillation. COMPARISON: None. TECHNIQUE: PE protocol CT angiogram of the chest using Isovue 370 IVcontrast as recorded in EPIC. 2-D multiplanar reconstructions and 3-D MIP reconstructions reviewed. Dose 1 : CT DLP Total : 109.65 mGycm DLP Spiral Max : 96.21 mGycm Maximum CTDI Vol : 9.53 mGy FINDINGS: Adequate visualization of the pulmonary arteries to the segmental/subsegmental level. No acute pulmonary embolism. No aortic arch aneurysm. No pneumothorax. Small left and [id number] right pleuraleffusions. Emphysema. Opacities dependently in the lower lobes. Impression deformity along the superior endplate of L2 and inferiorendplate of T6. Some sclerosis suggesting these are likely remote. Coronary artery calcification: Severe. IMPRESSION: No acute pulmonary embolism. Bilateral pleural effusions and dependent opacities which may represent atelectasis - Note: Radiology results need to be interpreted within a comprehensiveclinical context. If you have questions about the radiology report, please contactthe office of the ordering clinician. Stephan Rodriguez MD IMG CT ORDERABLES Final Resu lt * XR CHEST AP PORTABLE (06/23/2025 1:41 PM EDT) Anatomical Region Laterality Modality Chest Radiographic Barbie ging 06/23/2025 1:41 PM EDT Impressions 06/23/2025 1:46 PM EDT Findings suggestive of pulmonary edema with bilateral pleural effusions. - Note: Radiology results need to be interpreted within a comprehensive clinical context. If you have questions about the radiology report, please contact the office of the ordering clinician. Narrative 06/23/2025 1:46 PM EDT XR CHEST AP PORTABLE, 06/23/2025 1:41 PM CLINICAL HISTORY: -sob COMPARISON: 06/09/2025. PROCEDURE COMMENTS: AP portable technique. FINDINGS: Support devices: No visible support devices. Heart and mediastinum: Borderline-enlarged likely related to hypoexpansion and portable technique. LUNGS: Patchy bilateral airspace opacities with vascular indistinctness and bilateral pleural effusions. No pneumothorax. Procedure Note John Antonio MD - 06/23/2025 XR CHEST AP PORTABLE, 06/23/2025 1:41 PM CLINICAL HISTORY: -sob COMPARISON: 06/09/2025. PROCEDURE COMMENTS: AP portable technique. FINDINGS: Support devices: No visible support devices. Heart and mediastinum: Borderline-enlarged likely related to hypoexpansionand portable technique. LUNGS: Patchy bilateral airspace opacities with vascular indistinctnessand bilateral pleural effusions. No pneumothorax. IMPRESSION: Findings suggestive of pulmonary edema with bilateral pleural effusions. - Note: Radiology results need to be interpreted within a comprehensiveclinical context. If you have questions about the radiology report, please contactthe office of the ordering clinician. Stephan Rodriguez MD IMG DIAGNOSTIC IMAGING ORDER CELESTE Final Result * (ABNORMAL) NT PROBNP (06/23/2025 1:28 PM EDT) NT Pro-BNP 7,449(H) <=624 pg/mL 06/23/2025 1:58 PM EDT [facility] Blood VENOUS BLOOD / Unknown Venipuncture / Unknown 06/23/2025 1:28 PM EDT 06/23/2025 1:35 PM EDT Narrative [facility] - 06/23/2025 1:58 PM EDT An NT pro-BNP level less than 300 pg/mL in any patient, regardless of age, effectively rules out acute CHF with a 99% negative predictive value. Ingestion of angie doses of biotin (>5 mg/day) taken within 8 hours of drawing blood sample can interfere with this immunoassay test. Stephan Rodriguez MD CHEMISTRY ORDERABLES Final R esult [facility] [address] [place] [address] * (ABNORMAL) PARTIAL THROMBOPLASTIN TIME (06/23/2025 1:28 PM EDT) PTT 37.0(H) 25.7 - 36.8 second(s) 06/23/2025 1:48 PM EDT [facility] Comment: Therapeutic range for unfractionated heparin: 50.1 - 98.7 seconds Therapeutic range for direct thrombin inhibitors: Argatroban is 1.5 to 3 times the aPTT baseline. Lepirudin is 1.5 to 2 times the aPTT baseline. The aPTT should not exceed 100 seconds. The dosage of Argatroban should be decreased in patients with hepatic impairment. The dosage of Lepirudin should be decreased in renal insufficiency. Blood VENOUS BLOOD / Unknown Venipuncture / Unknown 06/23/2025 1:28 PM EDT 06/23/2025 1:35 PM EDT Stephan Rodriguez MD HEMATOLOGY ORDERABLES Final Result Performing Organization Address [facility]/State/[facility] Co de Phone Number [facility] [address] [place] [address] * (ABNORMAL) PT / INR (06/23/2025 1:28 PM EDT) Pathologist [facility] PT 15.3(H) 10.5 - 13.6 second(s) 06/23/2025 1:48 PM EDT [facility] INR 1.32(H) 0.91 - 1.18 (ratio) 06/23/2025 1:48 PM EDT [facility] Comment: Level of Therapy Indications Target INR Range Standard Dose Treatment and prophylaxis of venous 2.0 - 3.0 thrombosis, pulmonary embolism High Dose High risk patients with mechanical 2.5 - 3.5 heart valves Blood VENOUS BLOOD / Unknown Venipuncture / Unknown 06/23/2025 1:28 PM EDT 06/23/2025 1:35 PM EDT Stephan Rodriguez MD HEMATOLOGY ORDERABLES Final Result Performing Organization Address [facility] de Phone Number [facility] [address] [place] [address] * (ABNORMAL) D-DIMER (06/23/2025 1:28 PM EDT) D-Dimer 1,389(H) <=500 ng/mL FEU 06/23/2025 1:48 PM EDT [facility] Comment:This is an automated latex enhanced immunoassay for the quantitative determination of D-Dimer that may be used, in conjunction with a clinical pretest probability assessment, to exclude venous thromboembolism in patients suspected of deep venous thrombosis (DVT) and pulmonary embolism (PE). The cutoff for exclusion of DVT and PE is 500 ng/mL Fibrinogen Equivalent Units (FEU). Elevated D-Dimer levels may be associated with PE, DVT, disseminated intravascular coagulation, recent surgery, recent bleeding, , malignancy, and inflammation. Blood VENOUS BLOOD / Unknown Venipuncture / Unknown 06/23/2025 1:28 PM EDT 06/23/2025 1:35 PM EDT Stephan Rodriguez MD HEMATOLOGY ORDERABLES Final Result Performing Organization Address [facility] de Phone Number [facility] [address] [place] [address] * (ABNORMAL) TROPONIN-T HIGH SENSITIVITY BASELINE W/ REFLEX (06/23/2025 1:28 PM EDT) nd-dEvgtbupa-Z 92(H) <14 ng/L 06/23/2025 2:10 PM EDT [facility] Blood VENOUS BLOOD / Unknown Venipuncture / Unknown 06/23/2025 1:28 PM EDT 06/23/2025 1:35 PM EDT Narrative [facility] - 06/23/2025 2:10 PM EDT Ingestion of angie doses of biotin (>5 mg/day) taken within 8 hours of drawing blood sample can interfere with this immunoassay test. Stephan Rodriguez MD CHEMISTRY ORDERABLES Final R esult Performing Organization Address [facility]/ZIP Co de Phone Number [facility] [address] [phone] * (ABNORMAL) BASIC METABOLIC PANEL (06/23/2025 1:28 PM EDT) Sodium 138 136 - 145 mmol/L 06/23/2025 1:58 PM EDT [facility] Potassium 4.5 3.5 - 5.0 mmol/L 06/23/2025 1:58 PM EDT [facility] Chloride 107 98 - 107 mmol/L 06/23/2025 1:58 PM EDT [facility] Total CO2 20(L) 22 - 29 mmol/L 06/23/2025 1:58 PM EDT [facility] Anion Gap 11 7 - 16 mmol/L 06/23/2025 1:58 PM EDT [facility] Calcium 9.1 8.8 - 10.4 mg/dL 06/23/2025 1:58 PM EDT [facility] Glucose Lvl 116(H) 70 - 99 mg/dL 06/23/2025 1:58 PM EDT [facility] BUN 10 8 - 23 mg/dL 06/23/2025 1:58 PM EDT [facility] Creatinine 0.84 0.51 - 1.30 mg/dL 06/23/2025 1:58 PM EDT [facility] eGFR (CKD-EPIcr 2020) 68 >=60 mL/min/1.7 3 m2 06/23/2025 1:58 PM EDT [facility] Comment:Estimated GFR was ca lculated using the CKD-EPIcr (2020) equation refit without race. The equation is recommended by the [employer] - [employer]ph[employer] Task Force. Blood VENOUS BLOOD / Unknown Venipuncture / Unknown 06/23/2025 1:28 PM EDT 06/23/2025 1:35 PM EDT Stephan Rodriguez MD CHEMISTRY ORDERABLES Final R esult Performing Organization Address City/[facility]/ZIP Co de Phone Number [facility] [address] [place] [address] * (ABNORMAL) CBC (06/23/2025 1:28 PM EDT) WBC 3.4(L) 3.7 - 10.3 x10(3)/mcL 06/23/2025 1:37 PM EDT [facility] RBC 2.72(L) 3.90 - 5.20 x10(6)/mcL 06/23/2025 1:37 PM EDT [facility] Hgb 10.2(L) 11.2 - 15.7 g/dL 06/23/2025 1:37 PM EDT [facility] Hct 30.1(L) 34.0 - 45.0 % 06/23/2025 1:37 PM EDT [facility] MCV 110.7(H) 80.0 - 100.0 fL 06/23/2025 1:37 PM EDT [facility] MCH 37.5(H) 26.0 - 34.0 pg 06/23/2025 1:37 PM EDT [facility] MCHC 33.9 30.7 - 35.5 g/dL 06/23/2025 1:37 PM EDT [facility] RDW 19.9(H) <=14.9 % 06/23/2025 1:37 PM EDT [facility] Platelet 84(L) 155 - 369 x10(3)/mcL 06/23/2025 1:37 PM EDT [facility] MPV 12.7(H) 8.8 - 12.5 fL 06/23/2025 1:37 PM EDT [facility] Blood VENOUS BLOOD / Unknown Venipuncture / Unknown 06/23/2025 1:28 PM EDT 06/23/2025 1:35 PM EDT us Stephan Rodriguez MD HEMATOLOGY ORDERABLES Final Result [facility] [address] [place] [address] * EK EKG 12 LEAD (06/23/2025 1:16 PM EDT) Anatomical Region Laterality Modality Electrocardiogra phy 06/23/2025 1:20 PM EDT Impressions 06/23/2025 7:[address] 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, PROBABLY OLD Electronically Signed On 06-23-2025 19:29:47 EDT by Jaycob Sandoval us Stephan Rodriguez MD IMG ECG ORDERABLES Final Res ult documented in this encounter Visit Diagnoses Diagnosis Atrial fibrillation with RVR (HCC)- Primary Atrial fibrillation Atrial fibrillation with RVR (HCC) Atrial fibrillation Acute pulmonary edema (HCC) Acute edema of lung, unspecified Elevated troponin Other abnormal blood chemistry Pleural effusion Unspecified pleural effusion Acute on chronic heart failure with preserved ejection fraction (HCC) Acute pulmonary edema (HCC) Acute edema of lung, unspecified Anemia in other chronic diseases classified elsewhere Chest pain, unspecified type // Elevated troponin History of pulmonary embolus (PE) Personal history of pulmonary embolism Hx of subarachnoid hemorrhage // 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 Personal history of other diseases of circulatory system Hypertension associated with diabetes (HCC) Type II or unspecified type diabetes mellitus with other specified manifestations, not stated as uncontrolled Stage 3a chronic kidney disease (HCC) Type 2 diabetes mellitus, without long-term current use of insulin (HCC) Seizure (HCC) Other convulsions Respiratory arrest (HCC) Respiratory arrest Atrial fibrillation with slow ventricular response (HCC) Atrial fibrillation Paroxysmal atrial fibrillation (HCC) Atrial fibrillation 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) PAD (peripheral artery disease)- Primary Unspecified disorders of arteries and arterioles documented in this encounter Admitting Diagnoses Diagnosis Atrial fibrillation with RVR (HCC) Atrial fibrillation Paroxysmal atrial fibrillation (HCC) Atrial fibrillation documented in this encounter Administered Medications Inactive Administered Medications - up to 1 most recent administrations Medication Order MAR Action Action Date Dose Rate Site acetaminophen (OFIRMEV) infusion 1,000 mg 1,000 mg, Intravenous, EVERY 6 HOURS PRN, Starting on Tue06/24/25 at 1155, Until Tue06/26/25 at 1427, Pain, Fever, Temp greater than 102 F, Administer over 15 Minutes, Maximum adult dose of acetaminophen is 4000 mg from all sources in 24 hours. IV Started 06/25/2025 11:21 AM EDT 1,000 mg 400 mL/hr acetaminophen (TYLENOL) suppository 650 mg 650 mg, Rectal, EVERY 4 HOURS PRN, Starting on Tue06/24/25 at 1155, Until Tue07/02/25 at 1513, Pain, Fever, Temp greater than 102 F, Maximum adult dose of acetaminophen is 4000 mg from all sources in 24 hours. acetaminophen (TYLENOL) tablet 1,000 mg 1,000 mg, Oral, EVERY 8 HOURS SCHEDULED (3 times per day), First dose on Tue06/23/25 at 1545, Until Discontinued, Maximum adult dose of acetaminophen is 4000 mg from all sources in 24 hours. Given 06/26/2025 6:27 AM EDT 1,000 mg acetaminophen (TYLENOL) tablet 1,000 mg 1,000 mg, Oral, EVERY 8 HOURS SCHEDULED (3 times per day), First dose (after last reorder) on Tue06/26/25 at 1430, Until Discontinued, Maximum adult dose of acetaminophen is 4000 mg from all sources in 24 hours. Given 07/01/2025 9:01 PM EDT 1,000 mg acetaminophen (TYLENOL) tablet 650 mg 650 mg, Oral, EVERY 4 HOURS PRN, Starting on Tue06/24/25 at 1155, Until Tue07/02/25 at 1513, Pain, Fever, Temp greater than 102 F, Maximum adult dose of acetaminophen is 4000 mg from all sources in 24 hours. ALPRAZolam (XanAX) tablet 0.5 mg 0.5 mg, Oral, DAILY PRN, Starting on 06/29/25 at 2146, Until Tue07/02/25 at 1513, AnxietyIndications:an xiety Given 07/01/2025 9:01 PM EDT 0.5 mg atorvastatin (LIPITOR) tablet 40 mg 40 mg, Oral, NIGHTLY, First dose on Tue06/23/25 at 2100, Until Discontinued Given 07/01/2025 9:01 PM EDT 40 mg atropine injection 1 mg 1 mg, Intravenous, ONCE, 1 dose, On Tue06/24/25 at 0145 Given 06/24/2025 12:08 AM EDT 1 mg atropine injection INTRAPROCEDURE, Starting on Tue06/24/25 at 0016, Until Tue06/24/25 at 0023 Given 06/24/2025 12:23 AM EDT 1 mg calcium carbonate (TUMS) chewable tablet 1,000 mg 1,000 mg, Oral, DAILY, First dose on Tue06/23/25 at 1545, Until Discontinued, Max of 16 tablets per day. Given 07/02/2025 9:46 AM EDT 1,000 mg calcium gluconate in NaCl, iso-osm 1 gram/50 mL IVPB 1 g 1 g, Intravenous, ONCE, 1 dose, On Tue06/24/25 at 0400, Administer over 30 Minutes, Infuse 2 x calcium gluconate 1 gram IVPB for a total dose of 2 gram calcium gluconate. IV Started 06/24/2025 5:28 AM EDT 1 g 100 mL/hr calcium gluconate in NaCl, iso-osm 1 gram/50 mL IVPB 1 g 1 g, Intravenous, ONCE, 1 dose, On Tue06/24/25 at 0430, Administer over 30 Minutes, Infuse 2 x calcium gluconate 1 gram IVPB for a total dose of 2 gram calcium gluconate. IV Started 06/24/2025 6:02 AM EDT 1 g 100 mL/hr Carboxymethylcellulos e Sodium (THERA TEARS) 1 % ophthalmic gel 1 Drop 1 Drop, Both Eyes, EVERY 4 HOURS SCHEDULED (6 times per day), First dose on Tue06/24/25 at 0045, Until Discontinued, Critical Care Given 06/25/2025 8:40 AM EDT 1 Drop Both Eyes carvediloL (COREG) tablet 25 mg 25 mg, Oral, 2 TIMES DAILY WITH MEALS, First dose on Tue06/23/25 at 1800, Until Discontinued, Take with a meal. Given 06/23/2025 5:31 PM EDT 25 mg cyanocobalamin tablet 1,000 mcg 1,000 mcg, Oral, DAILY, First dose on Tue06/23/25 at 1545, Until Discontinued Given 07/02/2025 9:46 AM EDT 1,000 mcg dexmedeTOMIDine in 0.9 % NaCL (PRECEDEX) 400 mcg/100 mL (4 mcg/mL) infusion 0.1-0.8 mcg/kg/hr 55.7 kg (1.3925-11.14 mL/hr, rounded to 1.4-11.1 mL/hr), Intravenous, TITRATED, Starting on Tue06/24/25 at 2145, Until Tue06/26/25 at 0753, Initial rate: 0.4 mcg/kg/hr Titrate by 0.1 mcg/kg/hr every 15-30 minutes. If additional sedation is required within 15 minutes of titration, contact physician about starting additional medications, rather than increasing dexmedetomidine rate. May titrate up to a maximum of 0.8 mcg/kg/hr. May exceed recommended dosing (0.8 mcg/kg/hr) with physician order. Not to exceed maximum of 1.5 mcg/kg/hr. If persistent HR less than (<) 50 or SBP less than (<) 90, decrease infusion to half current dose. Stop medication if patient becomes hemodynamically unstable., Goal RASS Score: +1, 0, -1, Critical Care Rate/Dose Change 06/25/2025 4:03 PM EDT 0.1005 mcg/kg/hr 1.4 mL/hr dextrose 50 % solution 25 mL 25 mL, Intravenous, PRN, Starting on Tue06/24/25 at 0402, Until Tue07/02/25 at 1513, Low blood sugar, If FSBS less than 70 mg/dl and patient cannot take orally, Check FSBS every 15 minutes and repeat 25 mL of D50 IV push and notify physician if FSBS less than 70 mg/dL VESICANT , Insulin Calculator Given 06/24/2025 4:27 PM EDT 25 mL dilTIAZem (CARDIZEM) 1 mg/mL in sodium chloride 0.9 % 125 mL infusion 5 mg/hr (5 mL/hr), Intravenous, CONTINUOUS, Starting on Tue06/23/25 at 1330, Until Tue06/23/25 at 2140, Initial rate: 5 mg/hr Maximum dose: 15 mg/hr, Titrate to maintain: Do not titrate New Bag 06/23/2025 1:52 PM EDT 10 mg/hr 10 mL/hr dilTIAZem (CARDIZEM) bolus injection 20 mg 20 mg, Intravenous, ONCE, 1 dose, On Tue06/23/25 at 1330 Given 06/23/2025 1:48 PM EDT 20 mg DOPamine in D5W 400 mg/250 mL (1,600 mcg/mL) infusion 1-20 mcg/kg/min 57.2 kg (2.145-42.9 mL/hr, rounded to 2.1-42.9 mL/hr), Intravenous, TITRATED, Starting on Tue06/24/25 at 0100, Until Tue06/24/25 at 08, Initial rate: 2 mcg/kg/min Titrate by 1-5 mcg/kg/min every 1-15 min Maximum Dose: 50 mcg/kg/min VESICANT , Titrate to maintain: MAP greater than or equal to (>/=) 65 New Bag 06/24/2025 1:20 AM EDT 2 mcg/kg/min 4.3 mL/hr EPINEPHrine 4,000 mcg in 0.9 % NaCl (ADRENALINE) infusion 1-10 mcg/min (3.75-37.5 mL/hr, rounded to 3.8-37.5 mL/hr), Intravenous, TITRATED, Starting on Tue06/24/25 at 0215, Until Tue06/24/25 at 0826, Initial rate: 1 mcg/min Titrate by 1 mcg/min every 1-15 minutes Maximum dose: For rates greater than (>) 10 mcg/min, an alternate or additional vasopressor should be considered. VESICANT, Titrate to maintain: MAP greater than or equal to (>/=) 65 New Bag 06/24/2025 1:19 AM EDT 8 mcg/min 30 mL/hr EPINEPHrine 4,000 mcg in 0.9 % NaCl (ADRENALINE) infusion Intravenous, CONTINUOUS PRN, Starting on Tue06/24/25 at 0039, Until Tue06/24/25 at 0039, Critical Care New Bag 06/24/2025 12:39 AM EDT 5 mcg/min 18.8 mL/hr fentaNYL (SUBLIMAZE) 50 mcg/mL infusion 0.5-3 mcg/kg/hr 57.2 kg (0.572-3.432 mL/hr, rounded to 0.6-3.4 mL/hr), Intravenous, TITRATED, Starting on Tue06/24/25 at 0215, Until Tue06/26/25 at 0753, If paralytic not in use: Initial rate: 1 mcg/kg/hr Titrate by 0.5 mcg/kg/hr every 1 hour Contact provider for additional sedation orders if patient not adequately sedated at maximum dose of propofol (50 mcg/kg/min) and fentanyl (3 mcg/kg/hr) If paralytic in use: All patients receiving paralytic to have fentanyl at 3 mcg/kg/hr unless otherwise noted by provider. Initiate fentanyl at 3 mcg/kg/hr. Do not decrease without provider order. During SAT, adjust infusion according to SAT protocol. Maximum Dose: 10 mcg/kg/hr This infusion requires the use of portless tubing and an IV pole lock box. Open vent line prior to spiking vial., Goal RASS Score: 0, -1, -2, Critical Care Rate/Dose Change 06/24/2025 7:35 AM EDT 0.5245 mcg/kg/hr 0.6 mL/hr fUROsemide (LASix) injection 40 mg 40 mg, Intravenous, ONCE, 1 dose, On 06/23/25 at 1400, Give IV push at 20 to 40 mg/min. MAX ADMIN RATE = 40 mg/min Given 06/23/2025 2:11 PM EDT 40 mg fUROsemide (LASix) injection 40 mg 40 mg, Intravenous, TWICE DAILY DIURETIC, First dose (after last reorder) on Tue06/23/25 at 2000, Until Discontinued, Give IV push at 20 to 40 mg/min. MAX ADMIN RATE = 40 mg/min Given 06/24/2025 9:01 AM EDT 40 mg fUROsemide (LASix) injection 40 mg 40 mg, Intravenous, DAILY, First dose (after last modification) on Tue06/25/25 at 0900, Until Discontinued, Give IV push at 20 to 40 mg/min. MAX ADMIN RATE = 40 mg/min Given 06/26/2025 9:46 AM EDT 40 mg fUROsemide (LASix) tablet 40 mg 40 mg, Oral, DAILY, First dose on Tue06/27/25 at 0900, Until Discontinued Given 07/02/2025 9:46 AM EDT 40 mg gabapentin (NEURONTIN) capsule 200 mg 200 mg, Oral, 3 TIMES DAILY, First dose (after last modification) on Tue06/30/25 at 2100, Until Discontinued, Capsules may be opened and contents dissolved in water for administration Given 07/02/2025 9:46 AM EDT 200 mg gabapentin (NEURONTIN) capsule 300 mg 300 mg, Oral, DAILY, First dose on Tue06/26/25 at 0900, Until Discontinued, Capsules may be opened and contents dissolved in water for administration Given 06/27/2025 9:12 AM EDT 300 mg gabapentin (NEURONTIN) capsule 300 mg 300 mg, Oral, 2 TIMES DAILY, First dose (after last modification) on Tue06/27/25 at 1245, Until Discontinued, Capsules may be opened and contents dissolved in water for administration Given 06/27/2025 11:58 AM EDT 300 mg gabapentin (NEURONTIN) capsule 300 mg 300 mg, Oral, 3 TIMES DAILY, First dose (after last modification) on Tue06/27/25 at 2100, Until Discontinued, Capsules may be opened and contents dissolved in water for administration Given 06/30/2025 2:57 PM EDT 300 mg glucagon (GLUCAGEN) injection 1 mg 1 mg, Intramuscular, PRN, Starting on Tue06/24/25 at 0402, Until Tue07/02/25 at 1513, Low blood sugar, If FSBS less than 70 mg/dl, patient cannot take orally and without IV access, If patient is without IV access, give Glucagon 1 mg Intramuscularly, insert IV and call physician., Insulin Calculator glucagon (GLUCAGEN) injection 5 mg 5 mg, Intravenous, ONCE, 1 dose, On Tue06/24/25 at 0400 Given 06/24/2025 5:38 AM EDT 5 mg GLUCERNA Therapeutic oral supplement 1 'box' 1 'box', Oral, ONE TIME (NUTR), 1 dose, On Tue06/26/25 at 1500, [place] now please Administer orally. Do not administer if NPO or on clear liquid diet. Not for IV use. Supplied by [facility] Given 06/26/2025 5:14 PM EDT 1 'box' GLUCERNA Therapeutic oral supplement 1 'box' 1 'box', Oral, 2 TIMES DAILY (NUTR), First dose on Tue06/26/25 at 2000, Until Discontinued, [place] Administer orally. Do not administer if NPO or on clear liquid diet. Not for IV use. Supplied by [facility] Services Given 07/02/2025 8:00 AM EDT 1 'box' insulin aspart U-100 (NovoLOG) injection 0-40 Units 0-40 Units, Subcutaneous, EVERY 4 HOURS SCHEDULED (6 times per day), First dose on Tue06/24/25 at 0500, Until Discontinued, PO Diet: Obtain FSBS before patient begins eating. Administer this dose, which only provides correctional insulin, immediately after FSBS. If patient is NPO or declines meal tray, continue with calculated correction insulin dose. Tube Feeds and TPN: Obtain FSBS and administer this dose, which only provides correctional insulin, immediately after FSBS. Notify physician if FSBS less than 50 or greater than 350. Correction insulin doses must be by at least 3 hours. Insulin Calculator CONTINUOUS PICKLING LINE PICKLER - DBN, FLORINA, FTT, ICUs, and CVSICU Only Waste Sort Code = BLACK RCRA Hazardous Waste Container, Blood Glucose Target - Daytime (mg/dL): 140, Blood Glucose Target - Nighttime (mg/dL): 180, Hyperglycemic Correction Factor (Patient Specific, Sensitive): 79, Insulin Calculator Given 06/24/2025 5:35 AM EDT 1 Units Abdominal Tissue insulin aspart U-100 (NovoLOG) injection 0-40 Units 0-40 Units, Subcutaneous, EVERY 4 HOURS SCHEDULED (6 times per day), First dose (after last modification) on Tue06/24/25 at 0900, Until Discontinued, PO Diet: Obtain FSBS before patient begins eating. Administer this dose, which only provides correctional insulin, immediately after FSBS. If patient is NPO or declines meal tray, continue with calculated correction insulin dose. Tube Feeds and TPN: Obtain FSBS and administer this dose, which only provides correctional insulin, immediately after FSBS. Notify physician if FSBS less than 50 or greater than 350. Correction insulin doses must be by at least 3 hours. Insulin Calculator CONTINUOUS PICKLING LINE PICKLER - DBN, FLORINA, FTT, ICUs, and CVSICU Only Waste Sort Code = BLACK RCRA Hazardous Waste Container, Blood Glucose Target - Daytime (mg/dL): 140, Blood Glucose Target - Nighttime (mg/dL): 180, Hyperglycemic Correction Factor (Patient Specific, Sensitive): 25, Insulin Calculator Given 06/24/2025 9:01 AM EDT 4 Units Left Arm insulin aspart U-100 (NovoLOG) injection 0-40 Units 0-40 Units, Subcutaneous, 4 TIMES DAILY AT MEALTIME AND BEDTIME, First dose (after last modification) on Tue06/28/25 at 0800, Until Discontinued, PO Diet: Obtain FSBS before patient begins eating. Administer this dose, which only provides correctional insulin, immediately after FSBS. If patient is NPO or declines meal tray, continue with calculated correction insulin dose. Tube Feeds and TPN: Obtain FSBS and administer this dose, which only provides correctional insulin, immediately after FSBS. Notify physician if FSBS less than 50 or greater than 350. Correction insulin doses must be by at least 3 hours. Insulin Calculator CONTINUOUS PICKLING LINE PICKLER - DBN, FLORINA, FTT, ICUs, and CVSICU Only Waste Sort Code = BLACK RCRA Hazardous Waste Container, Blood Glucose Target - Daytime (mg/dL): 140, Blood Glucose Target - Nighttime (mg/dL): 180, Hyperglycemic Correction Factor (Patient Specific, Sensitive): 25, Insulin Calculator Given 06/29/2025 6:00 PM EDT 2 Units Abdominal Tissue Insulin Calculator - FSBS (Correction Only) Intake Input MISCELLANEOUS, 4 TIMES DAILY AT MEALTIME AND BEDTIME, First dose (after last modification) on Tue06/28/25 at 0800, Until Discontinued, Blood Glucose Target - Daytime (mg/dL): 140, Blood Glucose Target - Nighttime (mg/dL): 180, Hyperglycemic Correction Factor (Patient Specific, Sensitive): 25, Insulin Calculator iopamidoL (ISOVUE-370) 370 mg iodine /mL (76 %) injection (LOW) 75 mL 75 mL, Intravenous, ONCE PRN, 1 dose, Starting on Tue06/23/25 at 1456, Until Tue06/23/25 at 1457, Radiography/Imaging, Radiology Procedure, VESIC[facility] , CT (Contrasts) Given 06/23/2025 2:57 PM EDT 75 mL latanoprost (XALATAN) 0.005 % ophthalmic solution 1 Drop 1 Drop, Ophthalmic, NIGHTLY, First dose on Tue06/23/25 at 2100, Until Discontinued Given 07/01/2025 9:03 PM EDT 1 Drop Both Eyes levETIRAcetam (KEPPRA) injection 750 mg 750 mg, Intravenous, EVERY 12 HOURS SCHEDULED (2 times per day), First dose on Tue06/24/25 at 1430, Until Discontinued, Administer over 5 Minutes, Administer UNDILUTED product as IVP over 5 minutes Given 06/27/2025 9:19 AM EDT 750 mg levETIRAcetam (KEPPRA) tablet 750 mg 750 mg, Oral, 2 TIMES DAILY, First dose on Tue06/27/25 at 2100, Until Discontinued Given 07/02/2025 9:46 AM EDT 750 mg LORazepam (ATIVAN) 2 mg in sodium chloride 0.9% injection 2 mg, Intravenous, ONCE, 1 dose, On Tue06/24/25 at 0045, For IV administration, dilute with an equal volume of sodium chloride 0.9%. Administer at a rate not to exceed 2 mg/minute. Given 06/24/2025 1:14 AM EDT 2 mg losartan (COZAAR) tablet 25 mg 25 mg, Oral, DAILY, First dose on Tue06/27/25 at 1345, Until Discontinued Given 07/02/2025 9:46 AM EDT 25 mg magnesium citrate solution 296 mL 296 mL, Oral, ONCE, 1 dose, On Tue07/01/25 at 1315 Started 07/01/2025 2:26 PM EDT 296 mL magnesium sulfate in dextrose 5% infusion 1 g 1 g, Intravenous, at 200 mL/hr, ONCE, 1 dose, On Tue06/24/25 at 0030, Infuse 4 x Magnesium Sulfate 1 g IVPB for a total dose of 4 g Magnesium Sulfate IV Started 06/24/2025 2:02 AM EDT 1 g 200 mL/hr magnesium sulfate in dextrose 5% infusion 1 g 1 g, Intravenous, at 200 mL/hr, ONCE, 1 dose, On Tue06/24/25 at 0130, Infuse 4 x Magnesium Sulfate 1 g IVPB for a total dose of 4 g Magnesium Sulfate IV Started 06/24/2025 2:56 AM EDT 1 g 200 mL/hr magnesium sulfate in dextrose 5% infusion 1 g 1 g, Intravenous, at 200 mL/hr, ONCE, 1 dose, On Tue06/24/25 at 0200, Infuse 4 x Magnesium Sulfate 1 g IVPB for a total dose of 4 g Magnesium Sulfate IV Started 06/24/2025 3:51 AM EDT 1 g 200 mL/hr magnesium sulfate in dextrose 5% infusion 1 g 1 g, Intravenous, at 200 mL/hr, ONCE, 1 dose, On Tue06/24/25 at 0500, To complete original order to: Infuse 4 x Magnesium Sulfate 1 g IVPB for a total dose of 4 g Magnesium Sulfate Rate/Dose Verify 06/24/2025 6:02 AM EDT 200 mL/hr melatonin tablet 5-10 mg 5-10 mg, Oral, NIGHTLY PRN, Starting on 06/23/25 at 1540, Until Tue07/02/25 at 1513, Sleep, Begin with lowest dose unless otherwise directed. Reassess patient in 30 minutes. If necessary, remainder of dose may be given to patient. Given 06/23/2025 10:04 PM EDT 5 mg metoprolol (LOPRESSOR) tablet 12.5 mg 12.5 mg, Oral, 2 TIMES DAILY, First dose on Tue06/25/25 at 0900, Until Discontinued, Preferably taken with or immediately following meals. Take consistently with relation to food. Given 06/26/2025 8:07 PM EDT 12.5 mg metoprolol (LOPRESSOR) tablet 25 mg 25 mg, Oral, 2 TIMES DAILY, First dose (after last modification) on [place] 06/27/25 at 0930, Until Discontinued, Preferably taken with or immediately following meals. Take consistently with relation to food. Given During Downtime 06/29/2025 8:46 AM EDT 25 mg metoprolol succinate (TOPROL-XL) XL tablet 25 mg 25 mg, Oral, DAILY, First dose on Tue06/29/25 at 1800, Until Discontinued, May divide tablets in half; do not crush or chew. Given 07/02/2025 9:46 AM EDT 25 mg mupirocin (BACTROBAN) 2 % ointment Nasal, 2 TIMES DAILY, 10 doses, First dose on Tue06/24/25 at 0900, Last dose on Tue06/28/25 at 2100 Given 06/28/2025 9:02 PM EDT Both Nares nitroGLYCERIN (NITROSTAT) SL tablet 0.4 mg 0.4 mg, Sublingual, EVERY 5 MIN PRN, Starting on Tue06/24/25 at 1155, Until Tue07/02/25 at 1513, Chest pain, May give up to three (3) doses. Call MD after 3rd dose Administer for angina/chest pain prior to administration of analgesics for angina. nortriptyline (PAMELOR) capsule 10 mg 10 mg, Oral, NIGHTLY, First dose on Tue06/23/25 at 2100, Until Discontinued Given 07/01/2025 9:01 PM EDT 10 mg ondansetron (ZOFRAN) injection 4 mg 4 mg, Intravenous, EVERY 4 HOURS PRN, Starting on Tue06/23/25 at 1540, Until Tue07/02/25 at 1513, Nausea ondansetron (ZOFRAN) tablet 4 mg 4 mg, Oral, EVERY 4 HOURS PRN, Starting on Tue06/23/25 at 1540, Until Tue07/02/25 at 1513, Nausea Given 06/26/2025 9:44 AM EDT 4 mg oxyCODONE (ROXICODONE) immediate release tablet 5 mg 5 mg, Oral, ONCE, 1 dose, On Tue06/25/25 at 1830 Given 06/25/2025 8:17 PM EDT 5 mg oxyCODONE (ROXICODONE) immediate release tablet 5-10 mg 5-10 mg, Oral, EVERY 4 HOURS PRN, Starting on Tue06/23/25 at 1533, Until Tue06/24/25 at 0433, Pain Given 06/23/2025 5:38 PM EDT 10 mg oxyCODONE (ROXICODONE) immediate release tablet 5-10 mg 5-10 mg, Oral, EVERY 4 HOURS PRN, Starting on Tue06/26/25 at 0804, Until Tue07/02/25 at 1513, Pain Unrelieved by Oral Non-Opioid Therapy Given 07/02/2025 9:46 AM EDT 10 mg pantoprazole (PROTONIX) 40 mg in sodium chloride 0.9% 10 mL injection 40 mg, Intravenous, 2 TIMES DAILY, First dose on Tue06/24/25 at 0900, Until Discontinued, Administer IV Push if patient cannot swallow pantoprazole tablets Given 06/25/2025 8:18 PM EDT 40 mg pantoprazole (PROTONIX) tablet 40 mg 40 mg, Oral, 2 TIMES DAILY, First dose on Tue06/23/25 at 2100, Until Discontinued, Do not crush or chew Given 06/23/2025 9:16 PM EDT 40 mg pantoprazole (PROTONIX) tablet 40 mg 40 mg, Oral, 2 TIMES DAILY, First dose on Tue06/24/25 at 0900, Until Discontinued, Do not crush or chew Given 07/02/2025 9:46 AM EDT 40 mg polyethylene glycol (GLYCOLAX, MIRALAX) packet 17 g 17 g, Oral, 2 TIMES DAILY PRN, Starting on Tue06/23/25 at 1540, Until Tue06/24/25 at 0433, Constipation, If multiple oral PRN laxatives/stool softeners ordered, may give per patient preference. Given 06/23/2025 5:29 PM EDT 17 g polyethylene glycol (GLYCOLAX, MIRALAX) packet 17 g 17 g, Enteral, 2 TIMES DAILY, First dose on Tue06/24/25 at 0045, Until Discontinued, Mix in 8 oz of liquid. Hold for loose BM or BM in last 24 hours., Critical Care Given 06/25/2025 8:41 AM EDT 17 g potassium bicarbonate (EFFER-K) 10 mEq disintegrating tablet 30 mEq 30 mEq, Enteral, *EVERY 2 HOURS, 2 doses, First dose on Tue06/25/25 at 0900, Last dose on Tue06/25/25 at 1100, KCl 30 mEq ENTERAL Q2H x2 for a total of 60 mEq Prior to administration, completely dissolve tablet in 4 oz of cold water (if flavored) or juice of choice (if unflavored). Administer with food and instruct patient to sip tablet solution slowly over 5-10 min. Given 06/25/2025 8:40 AM EDT 30 mEq potassium chloride 10 mEq in 100 mL IVPB 10 mEq, Intravenous, ONCE, 1 dose, On Tue06/25/25 at 1300, Administer over 60 Minutes, Infuse 1 x KCl 10 mEq IVPB for a total dose of 10 mEq KCl [facility] Rate/Dose Verify (No Cosign) 06/25/2025 2:08 PM EDT 100 mL/hr potassium chloride in water 20 mEq/50 mL IVPB (CENTRAL LINE) 20 mEq 20 mEq, Intravenous, ONCE, 1 dose, On Tue06/26/25 at 0930, Administer over 60 Minutes, Infuse 2 x KCl 20 mEq IVPB for a total dose of 40 mEq KCl. Patient must be in a monitored bed and have a central line. [facility] IV Started 06/26/2025 9:56 AM EDT 20 mEq 50 mL/hr potassium chloride in water 20 mEq/50 mL IVPB (CENTRAL LINE) 20 mEq 20 mEq, Intravenous, ONCE, 1 dose, On Tue06/26/25 at 1030, Administer over 60 Minutes, Infuse 2 x KCl 20 mEq IVPB for a total dose of 40 mEq KCl. Patient must be in a monitored bed and have a central line. [facility] IV Started 06/26/2025 11:11 AM EDT 20 mEq 50 mL/hr propofol (DIPRIVAN) infusion 10 mg/mL 5-50 mcg/kg/min 57.2 kg (1.716-17.16 mL/hr, rounded to 1.7-17.2 mL/hr), Intravenous, TITRATED, Starting on Tue06/24/25 at 0215, Until Tue06/26/25 at 0753, Initial Rate: 10 mcg/kg/min Titrate by 5-10 mcg/kg/min every 10-15 minutes If paralytic in use: Minimum dose 30 mcg/kg/min. Do not decrease below 30 mcg/kg/min or below dose that was required to achieve RASS -5 (if higher than 30 mcg/kg/min) without provider order. During SAT, adjust infusion according to SAT protocol. Maximum Dose: 50 mcg/kg/min Do NOT administer Propofol if allergic to eggs, egg products, soybeans, or soy products. Mechanical Ventilation Required When Administered for Continuous Sedation. Replace tubing used to administer infusion every 12 hours, in accordance with the survey coordinator's recommendation., Goal RASS Score: 0, -1, -2, Critical Care Rate/Dose Change 06/24/2025 7:35 AM EDT 5 mcg/kg/min 1.7 mL/hr ranolazine (RANEXA) SR tablet 1,000 mg 1,000 mg, Oral, DAILY, First dose on Tue06/23/25 at 1545, Until Discontinued, Do Not Crush Given 06/23/2025 5:30 PM EDT 1,000 mg senna (SENOKOT) tablet 1-2 Tablet 1-2 Tablet, Oral, DAILY PRN, Starting on Tue06/23/25 at 1540, Until Tue07/02/25 at 1513, Constipation, Start with lowest dose and may give additional if needed. If multiple oral PRN laxatives/stool softeners ordered, may give per patient preference. Given 07/01/2025 10:12 AM EDT 1 Tablet senna-docusate (SENOKOT-S) 8.6-50 mg per tablet 3 Tablet 3 Tablet, Oral, 2 TIMES DAILY, First dose on Tue07/01/25 at 1445, Until Discontinued Given 07/02/2025 9:46 AM EDT 3 Tablets sodium chloride 0.9% IV line flush 20-50 mL 20-50 mL, Intravenous, at 150-600 mL/hr, PRN, Starting on Tue06/24/25 at 0527, Until Tue07/02/25 at 1513, Line Care, *Not to be used for red and blue lumen on dialysis catheters* Flush with a minimum of 20 mL after IVPB to insure complete administration of the dose. May use the saline infusion to back flush IVPB tubing as needed. sodium chloride 0.9% IV line flush 50 mL 50 mL, Intravenous, at 150-600 mL/hr, PRN, Starting on Tue06/23/25 at 1317, Until Tue07/02/25 at 1513, Line Care, Flush with a minimum of 20 mL after IVPB to insure complete administration of the dose. May use the saline infusion to back flush IVPB tubing as needed., Use this order to document priming and flushing IV line after medication administration. sodium chloride 0.9% syringe 10 mL 10 mL, Intravenous, EVERY 8 HOURS SCHEDULED (3 times per day), First dose on Tue06/24/25 at 0600, Until Discontinued, Saline locked lumens on central lines should be checked for blood return and flushed every 8 hours. Lumens with running IVF/drips should be checked for blood return and flushed whenever tubing is changed, a minimum of every 7 days. Given 07/01/2025 9:05 PM EDT 10 mL sodium chloride 0.9% syringe 5 mL 5 mL, Intravenous, PRN, Starting on Tue06/23/25 at 1317, Until Tue07/02/25 at 1513, Line Care, Flush with 5 mL saline pre/post IVP, and 5 mL prior to IVPB or blood product administration. Protocol for PERIPHERAL IV saline lock maintenance, flush with 3-5 mL saline syringe every 8 hours., Flush peripheral lines every 12 hours, central lines every 8 hours, and after IV medication sodium chloride 0.9% syringe Intravenous, ONCE PRN, 1 dose, Starting on Tue06/23/25 at 1456, Until Tue06/23/25 at 1456, Line Care, Flush peripheral lines every 12 hours, central lines every 8 hours, and after IV medication, CT (Contrasts) Given 06/23/2025 2:56 PM EDT sodium chloride 0.9% syringe Intravenous, PRN, Starting on Tue06/24/25 at 0527, Until Tue07/02/25 at 1513, Line Care, *Not to be used for red and blue lumen on dialysis catheters* Flush with 5-10 mL saline pre/post IVP, 10 mL prior to IVPB or blood product administration, and 20 mL post blood draws for CENTRAL lines. Given 06/26/2025 8:19 PM EDT 10 mL sterile water injection 1 mL 1 mL, Injection, PRN, Starting on Tue06/24/25 at 0402, Until Tue07/02/25 at 1513, Use for drug dilution, Use to dilute and administer glucagon injection, Insulin Calculator traMADoL (ULTRAM) tablet 50 mg 50 mg, Oral, EVERY 6 HOURS PRN, Starting on Tue06/25/25 at 1752, Until Tue06/26/25 at 1117, Pain, Headaches Given 06/26/2025 4:14 AM EDT 50 mg documented in this encounter Discontinued Medications Medication Sig Discontinue Reason Start Date End Da te oxyCODONE (ROXICODONE) 5 mg Oral Tablet Take 1-2 Tablets by mouth every 4 hours as needed for Acute Pain (R52). 06/10/2025 06/28/2025 carvediloL (COREG) 25 mg Oral Tablet Take 1 Tablet by mouth 2 times daily (with meals). Stop Taking at Discharge 06/10/2025 07/02/2025 fUROsemide (LASIX) 40 mg Oral Tablet Take 1 Tablet by mouth daily as needed for Other (edema, SOB). Stop Taking at Discharge 06/10/2025 07/02/2025 ertapenem sodium (ERTAPENEM INJ) Inject 1 g into the muscle daily. Ertapenem sodium injection solution reconstituted 1gm, inject 1 gm intramuscularly one time a day for UTI for seven days Stop Taking at Discharge 06/18/2025 07/02/2025 gabapentin (NEURONTIN) 300 mg Oral Capsule Take 300 mg by mouth daily. Give 1 capsule by mouth one time a day for POLYNEUROPATHY Stop Taking at Discharge 06/11/2025 07/02/2025 ALPRAZolam (XANAX) 0.5 mg Oral TabletIndications:a nxiety Take 0.5 mg by mouth nightly. give one tablet by mouth one time a day for anxiety disorder, unspecified Indications: anxious Stop Taking at Discharge 07/02/2025 documented as of this encounter Historical Medications * This list may reflect changes made after this encounter. dorzolamide-niels oloL (COSOPT) 22.3-6.8 mg/mL Opht Drops Place 1 Drop into both eyes nightly. instill 1 drop in both eyes at bedtime for glaucoma ALPRAZolam (XANAX) 0.5 mg Oral TabletIndicatio ns:anxiety Take 0.5 mg by mouth nightly. give one tablet by mouth one time a day for anxiety disorder, unspecified Indications: anxious 0 25 gabapentin (NEURONTIN) 300 mg Oral Capsule Take 300 mg by mouth daily. Give 1 capsule by mouth one time a day for POLYNEUROPATHY 06/11/2025 07/02/20 ertapenem sodium (ERTAPENEM INJ) Inject 1 g into the muscle daily. Ertapenem sodium injection solution reconstituted 1gm, inject 1 gm intramuscularly one time a day for UTI for seven days 06/18/2025 07/02/20 added in this encounter Active and Recently Administered Medications Times are shown in EDT. Scheduled Medication Order 06/30/2025 07/01/2025 07/02/2025 acetaminophen (TYLENOL) tablet 1,000 mg 1,000 mg, Oral, EVERY 8 HOURS SCHEDULED (3 times per day), First dose (after last reorder) on Tue06/26/25 at 1430, Until Discontinued, Maximum adult dose of acetaminophen is 4000 mg from all sources in 24 hours. 0600 (Not Given - Provider: Candelario Cook RN - Reason: Patient Declined)1457 (Given - Provider: Tamia Morrow RN)2122 (Given - Provider: Radha Martinez RN) 06 (Not Given - Provider: Radha Maritnez RN - Reason: Patient Declined)1426 (Given - Provider: Manuel Frey RN)2100 (Given - Provider: Radha Martinez RN) 06 (Not Given - Provider: Radha Martinez RN - Reason: Patient Declined) atorvastatin (LIPITOR) tablet 40 mg 40 mg, Oral, NIGHTLY, First dose on 06/23/25 at 2100, Until Discontinued 2122 (Given - Provider: Radha Martinez RN) 2100 (Given - Provider: Radha Martinez RN) calcium carbonate (TUMS) chewable tablet 1,000 mg 1,000 mg, Oral, DAILY, First dose on 06/23/25 at 1545, Until Discontinued, Max of 16 tablets per day. 09 (Given - Provider: Tamia Morrow RN) 101 (Given - Provider: Manuel Frey RN) 0946 (Given - Provider: Manuel Frey RN) cyanocobalamin tablet 1,000 mcg 1,000 mcg, Oral, DAILY, First dose on 06/23/25 at 1545, Until Discontinued 910 (Given - Provider: Tamia Morrow RN) 1011 (Given - Provider: Manuel Frey RN) 0946 (Given - Provider: Manuel Frey RN) fUROsemide (LASix) tablet 40 mg 40 mg, Oral, DAILY, First dose on Tue06/27/25 at 0900, Until Discontinued 0911 (Given - Provider: Tamia Morrow RN) 1012 (Given - Provider: Manuel Frey RN) 0946 (Given - Provider: Manuel Frey RN) gabapentin (NEURONTIN) capsule 200 mg 200 mg, Oral, 3 TIMES DAILY, First dose (after last modification) on Tue06/30/25 at 2100, Until Discontinued, Capsules may be opened and contents dissolved in water for administration 212 (Given - Provider: Radha Martinez RN) 101 (Given - Provider: Manuel Frey RN)142 (Given - Provider: Manuel Frey RN)210 (Given - Provider: Radha Martinez RN) 0946 (Given - Provider: Manuel Frey RN) gabapentin (NEURONTIN) capsule 300 mg (CANCELED) 300 mg, Oral, 3 TIMES DAILY, First dose (after last modification) on Arlene 06/27/25 at 2100, Until Discontinued, Capsules may be opened and contents dissolved in water for administration 09 (Given - Provider: Tamia Morrow RN)145 (Given - Provider: Tamia Morrow RN) GLUCERNA Therapeutic oral supplement 1 'box' 1 'box', Oral, 2 TIMES DAILY (NUTR), First dose on Tue06/26/25 at 2000, Until Discontinued, [place] Administer orally. Do not administer if NPO or on clear liquid diet. Not for IV use. Supplied by [facility] 0857 (Given - Provider: Tamia Morrow RN)1999 (Not Given - Provider: Radha Martinez RN - Reason: Other - Comment: at bedside, pt did not drink) 0800 (Not Given - Provider: Manuel Frey RN - Reason: Other - Comment: no food tray at this time)1999 (Not Given - Provider: Radha Martinez RN - Reason: Other - Comment: pt declines having drank glucerna) 0800 (Given - Provider: Manuel Frey RN) insulin aspart U-100 (NovoLOG) injection 0-40 Units(Linked Group 1) 0-40 Units, Subcutaneous, 4 TIMES DAILY AT MEALTIME AND BEDTIME, First dose (after last modification) on Tue06/28/25 at 0800, Until Discontinued, PO Diet: Obtain FSBS before patient begins eating. Administer this dose, which only provides correctional insulin, immediately after FSBS. If patient is NPO or declines meal tray, continue with calculated correction insulin dose. Tube Feeds and TPN: Obtain FSBS and administer this dose, which only provides correctional insulin, immediately after FSBS. Notify physician if FSBS less than 50 or greater than 350. Correction insulin doses must be by at least 3 hours. Insulin Calculator CONTINUOUS PICKLING LINE PICKLER - DBN, FLORINA, FTT, ICUs, and CVSICU Only Waste Sort Code = BLACK RCRA Hazardous Waste Container, Blood Glucose Target - Daytime (mg/dL): 140, Blood Glucose Target - Nighttime (mg/dL): 180, Hyperglycemic Correction Factor (Patient Specific, Sensitive): 25, Insulin Calculator 0858 (Not Given - Provider: Tamia Morrow RN - Reason: Order parameters not met)1258 (Not Given - Provider: Tamia Morrow RN - Reason: Order parameters not met)1737 (Not Given - Provider: Tamia Morrow RN - Reason: Order parameters not met)2100 (Not Given - Provider: Radha Martinez RN - Reason: Order parameters not met) 0800 (Not Given - Provider: Manuel Frey RN - Reason: Other - Comment: not ordering food at this time)1203 (Not Given - Provider: Manuel Frey RN - Reason: Order parameters not met)1749 (Not Given - Provider: Manuel Frey RN - Reason: Order parameters not met)2100 (Not Given - Provider: Radha Martinez RN - Reason: Order parameters not met) 0840 (Not Given - Provider: Manuel Frey RN - Reason: Order parameters not met) Insulin Calculator - FSBS (Correction Only) Intake Input(Linked Group 1) MISCELLANEOUS, 4 TIMES DAILY AT MEALTIME AND BEDTIME, First dose (after last modification) on Tue06/28/25 at 0800, Until Discontinued, Blood Glucose Target - Daytime (mg/dL): 140, Blood Glucose Target - Nighttime (mg/dL): 180, Hyperglycemic Correction Factor (Patient Specific, Sensitive): 25, Insulin Calculator 0800 (Non- Med Documentation - Provider: Tmaia Morrow RN)1200 (Non- Med Documentation - Provider: Tamia Morrow RN)1800 (Non- Med Documentation - Provider: Tamia Morrow RN)2100 (Non- Med Documentation - Provider: Radha Martinez RN) 1034 (Hold - Provider: Manuel Frey RN - Reason: Other - Comment: not ordering food at this time)1202 (Non- Med Documentation - Provider: Manuel Frey RN)1749 (Non- Med Documentation - Provider: Manuel Frey RN)2100 (Non- Med Documentation - Provider: Radha Martinez RN) 0839 (Non- Med Documentation - Provider: Manuel Frey RN) latanoprost (XALATAN) 0.005 % ophthalmic solution 1 Drop 1 Drop, Ophthalmic, NIGHTLY, First dose on Tue06/23/25 at 2100, Until Discontinued 2099 (Not Given - Provider: Radha Martinez RN - Reason: Patient Declined - Comment: pt states she uses them every other night) 2102 (Given - Provider: Radha Martinez, MAHENDRA) levETIRAcetam (KEPPRA) tablet 750 mg 750 mg, Oral, 2 TIMES DAILY, First dose on Tue06/27/25 at 2100, Until Discontinued 910 (Given - Provider: Tamia Morrow RN)2122 (Given - Provider: Radha Martinez RN) 101 (Given - Provider: Manuel Frey RN)2100 (Given - Provider: Radha Martinez RN) 0946 (Given - Provider: Manuel Frey RN) losartan (COZAAR) tablet 25 mg 25 mg, Oral, DAILY, First dose on Arlene 06/27/25 at 1345, Until Discontinued 910 (Given - Provider: Tamia Morrow RN) 101 (Given - Provider: Manuel Frey RN) 0946 (Given - Provider: Manuel Frey RN) magnesium citrate solution 296 mL (COMPLETED) 296 mL, Oral, ONCE, 1 dose, On 07/01/25 at 1315 1426 (Started - Provider: Manuel Frey RN)1456 (Stopped - Provider: Manuel Frey RN) metoprolol succinate (TOPROL-XL) XL tablet 25 mg 25 mg, Oral, DAILY, First dose on Tue06/29/25 at 1800, Until Discontinued, May divide tablets in half; do not crush or chew. 910 (Given - Provider: Tamia Morrow RN) 1011 (Given - Provider: Manuel Frey RN) 0946 (Given - Provider: Manuel Frey RN) nortriptyline (PAMELOR) capsule 10 mg 10 mg, Oral, NIGHTLY, First dose on Tue06/23/25 at 2100, Until Discontinued 2122 (Given - Provider: Radha Martinez RN) 2100 (Given - Provider: Radha Martinez RN) pantoprazole (PROTONIX) 40 mg in sodium chloride 0.9% 10 mL injection(Linked Group 2) 40 mg, Intravenous, 2 TIMES DAILY, First dose on 06/24/25 at 0900, Until Discontinued, Administer IV Push if patient cannot swallow pantoprazole tablets 910 (See Alternative - Provider: Tamia Morrow RN)2122 (See Alternative - Provider: Radha Martinez RN) 1011 (See Alternative - Provider: Manuel Frey RN)2100 (See Alternative - Provider: Radha Martinez RN) 0946 (See Alternative - Provider: Manuel Frey RN) pantoprazole (PROTONIX) tablet 40 mg(Linked Group 2) 40 mg, Oral, 2 TIMES DAILY, First dose on 06/24/25 at 0900, Until Discontinued, Do not crush or chew 910 (Given - Provider: Tamia Morrow RN)2122 (Given - Provider: Radha Martinez RN) 1011 (Given - Provider: Manuel Frey RN)2100 (Given - Provider: Radha Martinez RN) 0946 (Given - Provider: Manuel Frey RN) senna-docusate (SENOKOT-S) 8.6-50 mg per tablet 3 Tablet 3 Tablet, Oral, 2 TIMES DAILY, First dose on 07/01/25 at 1445, Until Discontinued 1425 (Given - Provider: Manuel Frey, RN)2099 (Not Given - Provider: Radha Martinez RN - Reason: Contraindicated - Comment: pt has had mult BMs this evening) 0946 (Given - Provider: Manuel Frey RN) sodium chloride 0.9% syringe 10 mL 10 mL, Intravenous, EVERY 8 HOURS SCHEDULED (3 times per day), First dose on Tue06/24/25 at 0600, Until Discontinued, Saline locked lumens on central lines should be checked for blood return and flushed every 8 hours. Lumens with running IVF/drips should be checked for blood return and flushed whenever tubing is changed, a minimum of every 7 days. 0600 (Not Given - Provider: Candelario Cook RN - Reason: Patient Declined)1502 (Given - Provider: Tamia Morrow RN)2126 (Given - Provider: Radha Martinez, MAHENDRA) 0600 (Not Given - Provider: Radha Martinez RN - Reason: Patient Declined)1428 (Given - Provider: Manuel Frey RN)2104 (Given - Provider: Radha Martinez RN) 0600 (Not Given - Provider: Radha Martinez RN - Reason: Patient Declined) PRN Medication Order 06/30/2025 07/01/2025 07/02/2025 acetaminophen (TYLENOL) suppository 650 mg(Linked Group 3) 650 mg, Rectal, EVERY 4 HOURS PRN, Starting on Tue06/24/25 at 1155, Until Tue07/02/25 at 1513, Pain, Fever, Temp greater than 102 F, Maximum adult dose of acetaminophen is 4000 mg from all sources in 24 hours. acetaminophen (TYLENOL) tablet 650 mg(Linked Group 3) 650 mg, Oral, EVERY 4 HOURS PRN, Starting on Tue06/24/25 at 1155, Until Tue07/02/25 at 1513, Pain, Fever, Temp greater than 102 F, Maximum adult dose of acetaminophen is 4000 mg from all sources in 24 hours. ALPRAZolam (XanAX) tablet 0.5 mg 0.5 mg, Oral, DAILY PRN, Starting on 06/29/25 at 2146, Until Tue07/02/25 at 1513, Anxiety 0010 (Given - Provider: Candelario Cook RN)2130 (Given - Provider: Radha Martinez RN) 2100 (Given - Provider: Radha Kammer, RN) dextrose 50 % solution 25 mL 25 mL, Intravenous, PRN, Starting on Tue06/24/25 at 0402, Until Tue07/02/25 at 1513, Low blood sugar, If FSBS less than 70 mg/dl and patient cannot take orally, Check FSBS every 15 minutes and repeat 25 mL of D50 IV push and notify physician if FSBS less than 70 mg/dL VESICANT , Insulin Calculator glucagon (GLUCAGEN) injection 1 mg(Linked Group 4) 1 mg, Intramuscular, PRN, Starting on Tue06/24/25 at 0402, Until Tue07/02/25 at 1513, Low blood sugar, If FSBS less than 70 mg/dl, patient cannot take orally and without IV access, If patient is without IV access, give Glucagon 1 mg Intramuscularly, insert IV and call physician., Insulin Calculator melatonin tablet 5-10 mg 5-10 mg, Oral, NIGHTLY PRN, Starting on Tue06/23/25 at 1540, Until Tue07/02/25 at 1513, Sleep, Begin with lowest dose unless otherwise directed. Reassess patient in 30 minutes. If necessary, remainder of dose may be given to patient. nitroGLYCERIN (NITROSTAT) SL tablet 0.4 mg 0.4 mg, Sublingual, EVERY 5 MIN PRN, Starting on Tue06/24/25 at 1155, Until Tue07/02/25 at 1513, Chest pain, May give up to three (3) doses. Call MD after 3rd dose Administer for angina/chest pain prior to administration of analgesics for angina. ondansetron (ZOFRAN) injection 4 mg(Linked Group 5) 4 mg, Intravenous, EVERY 4 HOURS PRN, Starting on Tue06/23/25 at 1540, Until Tue07/02/25 at 1513, Nausea ondansetron (ZOFRAN) tablet 4 mg(Linked Group 5) 4 mg, Oral, EVERY 4 HOURS PRN, Starting on Tue06/23/25 at 1540, Until Tue07/02/25 at 1513, Nausea oxyCODONE (ROXICODONE) immediate release tablet 5-10 mg 5-10 mg, Oral, EVERY 4 HOURS PRN, Starting on Tue06/26/25 at 0804, Until Tue07/02/25 at 1513, Pain Unrelieved by Oral Non-Opioid Therapy 0010 (Given - Provider: Candelario Cook, RN)1502 (Given - Provider: Tamia Morrow, RN)2122 (Given - Provider: Radha Martinez, RN) 1011 (Given - Provider: Manuel Frey, RN)2100 (Given - Provider: Radha Martinez, RN) 0946 (Given - Provider: Manuel Frey, RN) senna (SENOKOT) tablet 1-2 Tablet 1-2 Tablet, Oral, DAILY PRN, Starting on Tue06/23/25 at 1540, Until Tue07/02/25 at 1513, Constipation, Start with lowest dose and may give additional if needed. If multiple oral PRN laxatives/stool softeners ordered, may give per patient preference. 1012 (Given - Provider: Manuel Frey, RN) sodium chloride 0.9% IV line flush 20-50 mL 20-50 mL, Intravenous, at 150-600 mL/hr, PRN, Starting on Tue06/24/25 at 0527, Until Tue07/02/25 at 1513, Line Care, *Not to be used for red and blue lumen on dialysis catheters* Flush with a minimum of 20 mL after IVPB to insure complete administration of the dose. May use the saline infusion to back flush IVPB tubing as needed. sodium chloride 0.9% IV line flush 50 mL 50 mL, Intravenous, at 150-600 mL/hr, PRN, Starting on Tue06/23/25 at 1317, Until Tue07/02/25 at 1513, Line Care, Flush with a minimum of 20 mL after IVPB to insure complete administration of the dose. May use the saline infusion to back flush IVPB tubing as needed., Use this order to document priming and flushing IV line after medication administration. sodium chloride 0.9% syringe 5 mL 5 mL, Intravenous, PRN, Starting on Tue06/23/25 at 1317, Until Tue07/02/25 at 1513, Line Care, Flush with 5 mL saline pre/post IVP, and 5 mL prior to IVPB or blood product administration. Protocol for PERIPHERAL IV saline lock maintenance, flush with 3-5 mL saline syringe every 8 hours., Flush peripheral lines every 12 hours, central lines every 8 hours, and after IV medication sodium chloride 0.9% syringe Intravenous, PRN, Starting on Tue06/24/25 at 0527, Until Tue07/02/25 at 1513, Line Care, *Not to be used for red and blue lumen on dialysis catheters* Flush with 5-10 mL saline pre/post IVP, 10 mL prior to IVPB or blood product administration, and 20 mL post blood draws for CENTRAL lines. sterile water injection 1 mL(Linked Group 4) 1 mL, Injection, PRN, Starting on Tue06/24/25 at 0402, Until Tue07/02/25 at 1513, Use for drug dilution, Use to dilute and administer glucagon injection, Insulin Calculator Linked Groups Order Group 1: Insulin Calculator - FSBS (Correction Only) Intake InputJump to med MISCELLANEOUS, 4 TIMES DAILY AT MEALTIME AND BEDTIME, First dose (after last modification) on Tue06/28/25 at 0800, Until Discontinued, Blood Glucose Target - Daytime (mg/dL): 140, Blood Glucose Target - Nighttime (mg/dL): 180, Hyperglycemic Correction Factor (Patient Specific, Sensitive): 25, Insulin Calculator And insulin aspart U-100 (NovoLOG) injection 0-40 UnitsJump to med 0-40 Units, Subcutaneous, 4 TIMES DAILY AT MEALTIME AND BEDTIME, First dose (after last modification) on Tue06/28/25 at 0800, Until Discontinued, PO Diet: Obtain FSBS before patient begins eating. Administer this dose, which only provides correctional insulin, immediately after FSBS. If patient is NPO or declines meal tray, continue with calculated correction insulin dose. Tube Feeds and TPN: Obtain FSBS and administer this dose, which only provides correctional insulin, immediately after FSBS. Notify physician if FSBS less than 50 or greater than 350. Correction insulin doses must be by at least 3 hours. Insulin Calculator CONTINUOUS PICKLING LINE PICKLER - DBN, FLORINA, FTT, ICUs, and CVSICU Only Waste Sort Code = BL[employer] Hazardous Waste Container, Blood Glucose Target - Daytime (mg/dL): 140, Blood Glucose Target - Nighttime (mg/dL): 180, Hyperglycemic Correction Factor (Patient Specific, Sensitive): 25, Insulin Calculator Group 2: pantoprazole (PROTONIX) 40 mg in sodium chloride 0.9% 10 mL injectionJump to med 40 mg, Intravenous, 2 TIMES DAILY, First dose on Tue06/24/25 at 0900, Until Discontinued, Administer IV Push if patient cannot swallow pantoprazole tablets Or pantoprazole (PROTONIX) tablet 40 mgJump to med 40 mg, Oral, 2 TIMES DAILY, First dose on Tue06/24/25 at 0900, Until Discontinued, Do not crush or chew Group 3: acetaminophen (TYLENOL) tablet 650 mgJump to med 650 mg, Oral, EVERY 4 HOURS PRN, Starting on Tue06/24/25 at 1155, Until Tue07/02/25 at 1513, Pain, Fever, Temp greater than 102 F, Maximum adult dose of acetaminophen is 4000 mg from all sources in 24 hours. Or acetaminophen (TYLENOL) suppository 650 mgJump to med 650 mg, Rectal, EVERY 4 HOURS PRN, Starting on Tue06/24/25 at 1155, Until Tue07/02/25 at 1513, Pain, Fever, Temp greater than 102 F, Maximum adult dose of acetaminophen is 4000 mg from all sources in 24 hours. Or acetaminophen (OFIRMEV) infusion 1,000 mg (CANCELED) 1,000 mg, Intravenous, EVERY 6 HOURS PRN, Starting on Tue06/24/25 at 1155, Until Tue06/26/25 at 1427, Pain, Fever, Temp greater than 102 F, Administer over 15 Minutes, Maximum adult dose of acetaminophen is 4000 mg from all sources in 24 hours. Group 4: glucagon (GLUCAGEN) injection 1 mgJump to med 1 mg, Intramuscular, PRN, Starting on Tue06/24/25 at 0402, Until Tue07/02/25 at 1513, Low blood sugar, If FSBS less than 70 mg/dl, patient cannot take orally and without IV access, If patient is without IV access, give Glucagon 1 mg Intramuscularly, insert IV and call physician., Insulin Calculator And sterile water injection 1 mLJump to med 1 mL, Injection, PRN, Starting on Tue06/24/25 at 0402, Until Tue07/02/25 at 1513, Use for drug dilution, Use to dilute and administer glucagon injection, Insulin Calculator Group 5: ondansetron (ZOFRAN) tablet 4 mgJump to med 4 mg, Oral, EVERY 4 HOURS PRN, Starting on Tue06/23/25 at 1540, Until Tue07/02/25 at 1513, Nausea Or ondansetron (ZOFRAN) injection 4 mgJump to med 4 mg, Intravenous, EVERY 4 HOURS PRN, Starting on Tue06/23/25 at 1540, Until Tue07/02/25 at 1513, Nausea documented in this encounter Orders Medications Ordered That Rick ht Not Have Been Administered Count Last Ordered Date First Ordered Date Insulin Calculator - FSBS (C orrection Only) Intake Input 1 06/28/2025 insulin aspart U-100 (NovoLO G) injection 0-40 Units 2 06/25/2025 06/24/2025 Insulin Calculator (CONTINUOUS PICKLING LINE PICKLER) - FSBS (Correction Only) Intake Input 3 06/25/2025 0.9 % NaCl infusion 1 06/24/2025 acetaminophen (TYLENOL) suppository 650 mg 1 06/24/2025 acetaminophen (TYLENOL) tablet 650 mg 1 05/2025 atropine injection 1 mg 1 06/24/2025 dextrose 50 % solution 25 mL 1 06/24/2025 fentaNYL (SUBLIMAZE) IV bolus from bag 1 glucagon (GLUCAGEN) injection 1 mg 2 2024 ICU Electrolyte Replacement - Calcium 1 05/2025 ICU Electrolyte Replacement - Magnesium 1 0 06/24/2025 ICU Electrolyte Replacement - Phosphate 1 0 06/24/2025 ICU Electrolyte Replacement - Potassium 1 0 06/24/2025 Insulin Calculator (CONTINUOUS PICKLING LINE PICKLER) - FSBS (Correction Only) Input 1 06/24/2025 LORazepam (ATIVAN) 2 mg/mL injection 1 05/2025 LORazepam (ATIVAN) tablet 2 mg 1 06/24/2025 magnesium sulfate in dextros e 5% infusion 1 g 1 06/24/2025 mupirocin (BACTROBAN) 2 % ointment 1 2024 nitroGLYCERIN (NITROSTAT) SL tablet 0.4 mg 1 06/24/2025 sodium chloride 0.9% IV line flush 20-50 mL 1 06/24/2025 sterile water injection 1 mL 2 06/24/2025 sterile water injection 5 mL 1 06/24/2025 ondansetron (ZOFRAN) injection 4 mg 1 06/23 polyethylene glycol (GLYCOLA X, MIRALAX) packet 17 g 1 06/23/2025 sodium chloride 0.9% IV line flush 50 mL 1 06/23/2025 sodium chloride 0.9% syringe 5 mL 1 025 Nursing Count Last Ordered Date First Orde red Date EXTUBATE PATIENT 1 06/25/2025 PHARM VTE PROPH NON-CANDIDATE 1 06/23/2025 Consult Count Last Ordered Date First Orde red Date IP CONSULT TO UROLOGY 1 06/25/2025 IP CONSULT TO MEDICAL RAILWAY SIGNALLING ENGINEER 1 025 IP CONSULT TO NEUROLOGY 1 06/24/2025 IP CONSULT TO NUTRITION 1 06/24/2025 IP CONSULT TO CARDIOLOGY 1 06/23/2025 IP CONSULT TO VASCULAR SURGERY 1 06/23/2025 OT Count Last Ordered Date First Orde red Date IP CONSULT TO OCCUPATIONAL THERAPY 1 2024 PT Count Last Ordered Date First Orde red Date IP CONSULT TO PHYSICAL THERAPY 1 06/26/2025 SNOWBLOWER MECHANIC Count Last Ordered Date First Orde red Date IP CONSULT TO SPEECH THERAPY 1 06/25/2025 ONGOING SPEECH THERAPY PER PLAN OF CARE 1 0 06/25/2025 Admission Count Last Ordered Date First Orde red Date ADMIT 3 06/24/2025 06/23/2025 Transfer Count Last Ordered Date First Orde red Date TRANSFER PATIENT 2 06/26/2025 06/24/2025 Discharge Count Last Ordered Date First Orde red Date DISCHARGE PATIENT 1 07/02/2025 Restraints Count Last Ordered Date First Orde red Date NON-VIOLENT/NON-SELF DESTRUCTIVE RESTRAINT 1 06/24/2025 documented in this encounter Additional Health Concerns Infection Onset Date Last Indicated Resolved Time ESBL organism Comment:ESBL urine: 05/23, 06/1205/23/2025 06/12/2025 Assessment Noted Time A fall risk assessment has been complete d for the patient 02/08/2025 11:32 AM EDT documented as of this encounter Care Teams Terminal Gauger Supervisor Relationship Specialty Start Date End Date No Pcp, Per Patient PCP - General 06/04/24 documented as of this encounter
--- OUTSIDE RECORDS SUMMARY | 2025-08-05 15:45 | XMS_ITS | Encounter Summary ---
Author Organization [place] [address] Care Team Providers Care Tobacco Grower Name Role Phone No Pcp, Per Patient Primary Care Provider Evelyne prabhakar Reason for Visit * Reason Comments Peripheral Arterial Disease (PAD) Encounter Details Date Type Department Care Team (Late st Contact Info) Description 08/05/2025 3:45 PM EDT Office Visit SEP Vascular Surg Edg 20 [facility] [address] [place] [address] Vargas Wolf MD [address] [place] [address] [phone] PAD (peripheral artery disease) (Primary Dx); Critical limb ischemia of left lower extremity (HCC) Social History Tobacco Use Types Packs/Day Years Used Date Smoking Tobacco: Former Cigarettes Q uit: 1991 Passive Smoke Exposure: Past Smokeless Tobacco: Never Alcohol Use Standard Drinks/Week Comments Not Currently 0 (1 standard drink = 0.6 oz pur e alcohol) [facility] Utilities Answer Date Recorded In [...] Date Recorded PHQ-2 Total Score 0 06/23/2025 [facility] [place] [facility] - Occupational Stress [...] money to get more. Never true 06/23/2025 [facility] IP Transportation Answer D ate [...] Left AKA 01/30/2025- Lt LE Angiogram with DISPATCH LEAD of peroneal and tibioperoneal trunk with 1.5 x 80 mm and 2 x 200 balloons. DISPATCH LEAD of the popliteal artery with 3.5 x 120 mm and 4 x 80 mm balloons. (Vargas Wolf MD) HPI Patients past medical, family and social histories were reviewed and updated. There are no changes except as noted. Past Medical History[1] Patient Active Problem List Diagnosis Date Noted Phantom pain after amputation of lower extremity ([facility]) 06/27/2025 Seizure ([facility]) 06/24/2025 Respiratory arrest ([facility]) 06/24/2025 Atrial fibrillation with slow ventricular response ([facility]) 06/24/2025 Atrial fibrillation with RVR ([facility]) 06/23/2025 Acute cystitis without hematuria 05/28/2025 Metabolic encephalopathy 05/27/2025 Acute respiratory failure with hypoxemia ([facility]) 05/26/2025 Acute pulmonary edema ([facility]) 05/26/2025 Hypotension 05/26/2025 Pancytopenia ([facility]) 05/21/2025 Palliative care by specialist 05/13/2025 Goals of care, counseling/discussion 05/13/2025 Wound dehiscence 05/01/2025 Status post amputation of left foot through metatarsal bone ([facility]) 03/23/2025 Complication of foot amputation stump ([facility]) 03/23/2025 Diabetic foot infection ([facility]) 03/23/2025 S/P transmetatarsal amputation of foot, left ([facility]) 03/23/2025 Gangrene ([facility]) 03/09/2025 Left foot pain 03/07/2025 Gangrene due to arterial insufficiency ([facility]) 03/07/2025 Critical limb ischemia of left lower extremity ([facility]) 01/30/2025 PVD (peripheral vascular disease) 01/29/2025 Chest pain 01/29/2025 Osteomyelitis of great toe ([facility]) 01/23/2025 Abscess of toe of left foot 01/20/2025 Cellulitis and abscess of toe of left foot 01/19/2025 Exostosis of toe 01/19/2025 Atherosclerosis of [place] artery of extremity 01/19/2025 Constipation 01/15/2025 Stage [...] of traumatic brain injury - hemorrhagic cerebral xzogwozav92/19/2024 Hx of subdural hemorrhage 06/04/2024 Macrocytosis 06/04/2024 [...] w/o infarct, bilateral 04/28/2023 Coronary arteriosclerosis in [place] artery // Hx of CABG 04/09/2016 Secondary open-angle glaucoma of right eye, severe stage 12/09/2015 Type 2 diabetes mellitus, without long-term current use of insulin ([facility]) 12/09/2015 Mixed hyperlipidemia 09/30/2014 Hypertension associated with [...] DAILY nalOXone (NARCAN) 4 mg, Nasal, PRN, [place] the contents of one device (0.1mL) into [...] has cpap, but is not using. Stroke ([facility]) pt's states around 3 years [...] FEMORAL ARTERIO SHIFT 01/17/2025 Vargas Wolf MD [place] IR IR ANGIOGRAM FEMORAL ARTERIO SHIFT 05/10/2025 IR ANGIOGRAM FEMORAL ARTERIO SHIFT 05/10/2025 Vargas Wolf MD EDG IR IR REVAS FEM POP ART UNILAT W DISPATCH LEAD 01/30/2025 IR REVAS FEM POP ART UNILAT W DISPATCH LEAD 01/30/2025 Vargas Wolf MD EDG IR IR [...] EST Office Visit [facility] V[facility] Surg Edg [address] [place] [address] [place] [phone] Vargas Wolf MD [address] [place], [place] [phone] documented as of this encounter Visit Diagnoses Diagnosis PAD (peripheral artery disease)- Primary Unspecified disorders of arteries and arterioles Critical limb ischemia of left lower extremity (HCC) PAD (peripheral artery disease)- Primary Unspecified disorders of arteries and arterioles documented in this encounter Additional Health Concerns Infection Onset Date Last Indicated Resolved Time ESBL organism Comment:ESBL urine: 05/23, 06/1205/23/2025 06/12/2025 Assessment Noted Time A fall risk assessment has been complete d for the patient 02/08/2025 11:32 AM EDT documented as of this encounter Care Teams Tobacco Grower Relationship Specialty Start Date End Date No Pcp, Per Patient PCP - General 06/04/24 documented as of this encounter
[2025-08-16 09:01] LABS: Microscopic, Urine URINE MICROSCOPIC (MICROSCOPIC)
--- OUTSIDE RECORDS SUMMARY | 2025-08-16 09:05 | XMS_ITS | Encounter Summary ---
Author Organization [employer] ([place], [place], [place], [place]) Address [address] [place] [address] Care Team Providers Care Belt Maker Name Role Phone Jay Howell MD Primary Care Provider [phone] Encounter Details Date Type Department Care Team (Late st Contact Info) Description 03/16/[address] [facility] [place] [facility] [place] [address] ProviderJessie MD [address] [place] [id number] Social History Tobacco Use Types Packs/Day Years [...] of the form. Electronically signed by Sivan [facility] Conversion Crm Marketing Executive Cerner at 02/06/2023 12:48 PM CDT documented in this encounter Plan of Treatment Not on file documented as of this encounter Visit Diagnoses Not on filedocumented in this encounter Care Teams Belt Maker Relationship Specialty Start Date End Date Jay Howell MD [address] [place] [phone] PCP - General Emergency Medicine 11/12/23 documented as of this encounter
--- OUTSIDE RECORDS SUMMARY | 2025-08-16 09:05 | XMS_ITS | Encounter Summary ---
Author Organization [employer] ([place], [place], [place], [place]) Address [address] [place] [address] Care Team Providers Care Events Solutions Consultant Name Role Phone Jay Howell MD Primary Care Provider [phone] Encounter Details Date Type Department Care Team (Late st Contact Info) Description 03/16/2021 Transcribed Document [facility] [place] [address] [place] [address] ProviderJessie MD [address] [place], [place] [address] Social History Tobacco Use Types Packs/Day Years [...] on filedocumented in this encounter Care Teams Events Solutions Consultant Relationship Specialty Start Date End Date Jay Howell MD [address] [place] [phone] PCP - General Emergency Medicine 11/12/23 documented as of this encounter
--- OUTSIDE RECORDS SUMMARY | 2025-08-16 09:05 | XMS_ITS | Clinical Summary ---
Author Organization [facility] Address [address] [place] [address], [address] [place] [address] Care Team Providers Care Crematorium Operator Name Role Phone Jay Howell MD Primary Care Provider [phone] Allergies Active Allergy Reactions Criticality Noted Date [...] patient's age to complete [place] [address] MEDICARE Care Teams Crematorium Operator Relationship Specialty Start Date End Date Jay Howell MD Clinic [place] [phone] PCP - General Emergency Medicine 03/06/25
--- OUTSIDE RECORDS SUMMARY | 2025-08-16 09:05 | XMS_ITS | Encounter Summary ---
Author Organization [employer] ([place], [place], [place], [place]) Address [address] [place] [address] Care Team Providers Care Building Contractor Name Role Phone Jay Howell MD Primary Care Provider [phone] Encounter Details Date Type Department Care Team (Late st Contact Info) Description 03/16/2021 Transcribed Document [facility] [place] [facility] [place] [address] ProviderJessie MD [address] [place], [place] [address] Social History Tobacco Use Types Packs/Day Years [...] Ambulatory Legal Guardian : Spouse Support Person/Patient Correctional Case Manager : Yes Support Person/Pt Rep Name : Willard Contact Password : Marvin Support Person/Pt Rep Contact Information : [phone] Want Family/Rep/Phys Notified of Admit : No [...] Obtained From : Patient Primary Language : Greenlandic Preferred Communication Mode : Verbal Communication Barrier : None Graduate Fellow Needed : No VALERIA DOAN RN - [...] Level : 46 or > High Risk [place] Fall Interventions : Adequate lighting, Assistive devices [...] Source : Stated Height Entry Format : Waller Height, Feet : 5 ft(Converted to: 152 cm, 60 Inch) Height, Inches : 3 Inch(Converted to: 0 ft 3 Inch, 7.62 cm) Clinical Height : 160.02 cm Weight Source : Standing scale Weight Entry Format : Waller Clinical Dosing Weight : 71.82 kg Weight, Pounds : 158 lb Body Surface Area (BSA) : 1.75 m2 Body Mass Index : 28 kg/m2 (HI) [place] Body Weight : 52 kg VALERIA DOAN [...] VALERIA DOAN RN - 03/16/2021 18:52 EDT [place] Suicide Severity Rating Scale (C-SSRS) CSSRS Past [...] EDT Electronically signed by Gayle Finnegan Conversion Conditioning Yard Supervisor Cerner at 02/04/2023 2:07 PM CDT documented in this encounter Plan of Treatment Not on file documented as of this encounter Visit Diagnoses Not on filedocumented in this encounter Care Teams Building Contractor Relationship Specialty Start Date End Date Jay Howell MD [address] [place] [phone] PCP - General Emergency Medicine 11/12/23 documented as of this encounter
--- OUTSIDE RECORDS SUMMARY | 2025-08-16 09:05 | XMS_ITS | Encounter Summary ---
Author Organization [employer] ([place], [place], [place], [place]) Address [address] [place] [address] Care Team Providers Care Emergency Communications Dispatcher Name Role Phone Jay Howell MD Primary Care Provider [phone] Encounter Details Date Type Department Care Team (Late st Contact Info) Description 03/17/2021 Transcribed Document [facility] Cardiology [address] [place], [place] [phone] Jorje Bení[place] [address] [place] [address] [address] [place] [address] Social History Tobacco Use Types Packs/Day Years [...] 1940 Associated Diagnoses: None Author: JORJE BENÍTEZ MD-[facility] Basic Information Budget Director: Dr. Adry Dumas Chief Complaint Syncope History of Present Illness The patient is an unfortunate 80-year-old female with a known history atherosclerotic cardiovascular disease???status post coronary artery bypass grafting as well as multiple PCI's most recently 2019, hypertension, dyslipidemia, paroxysmal/persistent atrial fibrillation on chronic warfarin, history of carotid disease, anxiety, diabetes mellitus type 2, COPD, and DVT/pulmonary embolism who presented to [facility] after suffering a several episode [...] Vitamins oral tablet 1 Tab, Oral, Daily Morgan 7.5 mg-325 mg oral tablet 1 Tab, [...] Bedtime Problem list: All Problems Arthritis / 4529042 / Confirmed Atrial fibrillation with RVR / 2062428470 / Confirmed Blood clot / 091306678 / Confirmed Cataract / Confirmed Chest pain / 84664899 / Complaint of Clotting disorder / 621803278 / Confirmed COPD / 63607888 / Confirmed Coronary artery disease / 3357390428 / Confirmed Diabetes mellitus / 550903791 / Confirmed GERD - Gastro-esophageal reflux disease / 1783458299 / Confirmed Glaucoma / Confirmed Chronic anticoagulation / 402813562 / Confirmed Hx of pulmonary embolus / 084293382 / Confirmed High blood pressure / 52869964 / Confirmed History of obstructive sleep apnea / 04019350 / Confirmed Hyperlipidemia / 38086136 / Confirmed Multiple renal cysts / 530818995 / Confirmed Emphysema / 808263247 / Confirmed Apnea, sleep / 169911571 / Confirmed Stented coronary artery / 8739838016 / Confirmed Resolved: UTI - Urinary tract infection / 8866232700 Canceled: History of obstructive sleep apnea / 13161471 Histories No education data available. Social & [...] History: Active Cataract Glaucoma Coronary artery disease (5387112868) Stented coronary artery (5108945148) High blood pressure (19861815) Hyperlipidemia (05291994) COPD (85369357) GERD - Gastro-esophageal reflux disease (4295710355) Multiple renal cysts (151591314) Arthritis (6010934) Diabetes mellitus (281386198) Emphysema (249845776) Apnea, sleep (575865211) Hx of pulmonary embolus (171787006) Chronic anticoagulation (529233783) Atrial fibrillation with RVR (7443710371) Resolved UTI - Urinary tract infection (3883213620): Resolved. Family History: Cardiomyopathy Child Stroke Brother Heart attack Brother Sister Leukemia Child Cancer Father Mother Sister Coronary heart disease Child Procedure history: Cardiac Stent on 12/20/2018 at 77 Years. Comments: 03/17/2021 9:03 EVA LAWS RN HARVINDER to LAD Cardiac Stent in 2010 at 70 Years. Cardiac Stent on 01/30/2008 at 67 Years. Comments: 06/13/2020 8:52 EVA LAWS RN PCI w/ [place] stent to D1 Coronary artery bypass graft (193447846) in 1992 at 52 Years. Appendectomy (607665826). back surgury. cataract surgury. Cholecystectomy (62042897). femur repair. Hip replacement (9199192020). Hysterectomy (023268685). uterine suspension. Physical Examination VS/Measurements Vitals Signs [...] (Current Encounter/Past 24 Hours) ProBNP 576 pg/mL [place] 03/17/2021 04:45 Blood Gases (Current Encounter/Past 24 Hours) No Blood Gas Results Found (Past 24 Hours) Radiology Results (Last 48 hours) [id number] -- 03/16/2021 15:29 CR Hip Uni Comp [...] filedocumented in this encounter Care Teams Emergency Communications Dispatcher Relationship Specialty Start Date End Date Jay Howell MD [address] [place] [phone] PCP - General Emergency Medicine 11/12/23 documented as of this encounter
--- OUTSIDE RECORDS SUMMARY | 2025-08-16 09:05 | XMS_ITS | Encounter Summary ---
Author Organization [employer] ([place], [place], [place], [place]) Address [address] [place] [address] Care Team Providers Care Linux Developer Name Role Phone Jay Howell MD Primary Care Provider [phone] Encounter Details Date Type Department Care Team (Late st Contact Info) Description 03/16/2021 Transcribed Document [facility] [place] Family Medicine [address] [place] [address] ProviderJessie MD [address] [place] [address] 067781 Social History Tobacco Use Types Packs/Day Years [...] ALLERGIES: Macrobid and morphine. HOME MEDICATIONS: 1. [place] as needed. 2. Xanax as needed. 3. [...] Chart was reviewed. Time spent, 60 minutes. /[id number] Yasser Zohary, MD YZ/AQ / YGonzalo / MODL CC: Dr. Avtar Moeller Electronically signed by [facility], [facility] Conversion Shovel Oiler Cerner at 02/04/2023 2:22 PM CDT documented in this encounter Plan of Treatment Not on file documented as of this encounter Visit Diagnoses Not on filedocumented in this encounter Care Teams Linux Developer Relationship Specialty Start Date End Date Jay Howell MD [address] [place] [phone] PCP - General Emergency Medicine 11/12/23 documented as of this encounter
--- OUTSIDE RECORDS SUMMARY | 2025-08-16 09:05 | XMS_ITS | Encounter Summary ---
Author Organization [employer] ([place], [place], [place], [place]) Address [address] [place] [address] Care Team Providers Care Mold Tooler Name Role Phone Jay Howell MD Primary Care Provider [phone] Encounter Details Date Type Department Care Team (Late st Contact Info) Description 03/17/2021 Transcribed Document [facility] [place] Family Medicine [facility] [place] [address] ProviderJessie MD [address] [place], [place] [phone] Social History Tobacco Use Types Packs/Day Years [...] - 03/17/2021 12:33 EDT Electronically signed by [facility], [facility] Conversion Review Scheduling Coordinator Cerner at 02/04/2023 1:58 PM CDT documented in this encounter Plan of Treatment Not on file documented as of this encounter Visit Diagnoses Not on filedocumented in this encounter Care Teams Mold Tooler Relationship Specialty Start Date End Date Jay Howell MD [address] [place] [phone] PCP - General Emergency Medicine 11/12/23 documented as of this encounter
--- OUTSIDE RECORDS SUMMARY | 2025-08-16 09:06 | XMS_ITS | Encounter Summary ---
Author Organization [employer] ([place], [place], [place], [place]) Address [address] [place] [address] Care Team Providers Care Radiology Transporter Name Role Phone Jay Howell MD Primary Care Provider [phone] Encounter Details Date Type Department Care Team (Late st Contact Info) Description 08/25/2020 Transcribed Document [facility] [place] [address] [place] [address] ProviderJessie MD [address] [place] [address] Social History Tobacco Use Types Packs/Day Years Used Date Smoking Tobacco: Never Assessed Comments Unknown Sex and Gender Information Value Date Recorded Sex Assigned at Not on file Legal Sex Female 7:30 PM CDT Gender Identity Not on file Sexual Orientation Not on file documented as of this encounter Miscellaneous Notes * Cerner Conversion Note - Jessie ProviderMD - 08/25/2020 4:33 AM TERMINAL SUPERINTENDENT ED Assessment Entered On: 08/25/2020 5:16 EST Performed On: 08/25/2020 5:12 EST by Yajaira Magallon, cell builder Quick Look Assessment Level of Consciousness : [...] Yajaira Magallon Rn - 08/25/2020 5:12 EST documented in this encounter Plan of Treatment Not on file documented as of this encounter Visit Diagnoses Not on filedocumented in this encounter Care Teams Radiology Transporter Relationship Specialty Start Date End Date Jay Howell MD [address] [place] [phone] PCP - General Emergency Medicine 11/12/23 documented as of this encounter
--- OUTSIDE RECORDS SUMMARY | 2025-08-16 09:06 | XMS_ITS | Encounter Summary ---
Author Organization [employer] ([place], [place], [place], [place]) Address [address] [place] [address] Care Team Providers Care Aircraft Instrument Repairer Name Role Phone Jay Howell MD Primary Care Provider [phone] Encounter Details Date Type Department Care Team (Late st Contact Info) Description 03/17/2021 Transcribed Document [facility] Family Medicine [address] [place] [address] ProviderJessie MD [address] [place], [place] 331261 Social History Tobacco Use Types Packs/Day Years [...] on filedocumented in this encounter Care Teams Aircraft Instrument Repairer Relationship Specialty Start Date End Date Jay Howell MD [address] [place] [phone] PCP - General Emergency Medicine 11/12/23 documented as of this encounter
--- OUTSIDE RECORDS SUMMARY | 2025-08-16 09:06 | XMS_ITS | Encounter Summary ---
Author Organization [employer] ([place], [place], [place], [place]) Address [address] [place] [address] Care Team Providers Care Adoption Coordinator Name Role Phone Jay Howell MD Primary Care Provider [phone] Encounter Details Date Type Department Care Team (Late st Contact Info) Description 03/17/2021 Transcribed Document [facility] [place] [facility] [place] [address] ProviderJessie MD [address] [place], [place] [phone] Social History Tobacco Use Types Packs/Day Years [...] 03/17/2021 17:25 EDT Electronically signed by Sivan [facility] Conversion Supervisor Color Making Cerner at 02/04/2023 2:18 PM CDT documented in this encounter Plan of Treatment Not on file documented as of this encounter Visit Diagnoses Not on filedocumented in this encounter Care Teams Adoption Coordinator Relationship Specialty Start Date End Date Jay Howell MD [address] [place] [phone] PCP - General Emergency Medicine 11/12/23 documented as of this encounter
--- OUTSIDE RECORDS SUMMARY | 2025-08-16 09:06 | XMS_ITS | Encounter Summary ---
Author Organization [employer] ([place], [place], [place], [place]) Address [address] [place] [address] Care Team Providers Care Planer Chain Offbearer Name Role Phone Jay Howell MD Primary Care Provider [phone] Encounter Details Date Type Department Care Team (Late st Contact Info) Description 03/17/2021 Transcribed Document [facility] [place] Family Medicine [address] [place] [address] ProviderJessie MD [address] [place] [address] Social History Tobacco Use Types Packs/Day Years [...] pain. SOCIAL HISTORY: The patient lives in [place] with her . She has 3 children, 2 of whom are living. 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 She still drives and walks independently. [...] are 0 to 1+. Coordination shows intact dwrpft-im-vdrj on the left and dyit-sw-thwt on both sides. Gait was not tested. [...] her . I will follow with you. /[id number] Arron Clarke MD WSB/AQ / WSB / MODL /[id number] Electronically signed by Sivan [facility] Conversion District Wire Chief Cerner at 02/04/2023 2:15 PM CDT documented in this encounter Plan of Treatment Not on file documented as of this encounter Visit Diagnoses Not on filedocumented in this encounter Care Teams Planer Chain Offbearer Relationship Specialty Start Date End Date Jay Howell MD [address] [place] [phone] PCP - General Emergency Medicine 11/12/23 documented as of this encounter
--- OUTSIDE RECORDS SUMMARY | 2025-08-16 09:06 | XMS_ITS | Encounter Summary ---
Author Organization [employer] ([place], [place], [place], [place]) Address [address] [place] [address] Care Team Providers Care Medical Coordinator Pesticide Use Name Role Phone Jay Howell MD Primary Care Provider [phone] Encounter Details Date Type Department Care Team (Late st Contact Info) Description 08/25/2020 Transcribed Document [facility] [place] Family Medicine [address] [place] [address] ProviderJessie MD [address] [place] [address] Social History Tobacco Use Types Packs/Day Years Used Date Smoking Tobacco: Never Assessed Comments Unknown Sex and Gender Information Value Date Recorded Sex Assigned at Not on file Legal Sex Female 7:30 PM CDT Gender Identity Not on file Sexual Orientation Not on file documented as of this encounter Miscellaneous Notes * Cerner Conversion Note - Jessie ProviderMD - 08/25/2020 4:33 AM AIRLINE TICKET AGENT [place] Suicide Severity Rating Scale (C-SSRS) Entered On: 08/25/2020 5:10 EST Performed On: 08/25/2020 5:10 EST by Yajaira Magallon Rn [place] Suicide Severity Rating Scale (C-SSRS) CSSRS Past [...] filedocumented in this encounter Care Teams Medical Coordinator Pesticide Use Relationship Specialty Start Date End Date Jay Howell MD [address] [place] [phone] PCP - General Emergency Medicine 11/12/23 documented as of this encounter
--- OUTSIDE RECORDS SUMMARY | 2025-08-16 09:06 | XMS_ITS | Encounter Summary ---
Author Organization [employer] ([place], [place], [place], [place]) Address [address] [place] [address] Care Team Providers Care Head Of Design Name Role Phone Jay Howell MD Primary Care Provider [phone] Encounter Details Date Type Department Care Team (Late st Contact Info) Description 03/17/2021 Transcribed Document [facility] Radiology [address] [place] [address] Samantha Guzman MD [facility] [place] [address] Social History Tobacco Use Types Packs/Day Years [...] Vitamins oral tablet, 1 Tab, Oral, Daily [place] 7.5 mg-325 mg oral tablet, 1 Tab, [...] Lymph # 1.52 x10(3)/uL 03/16/2021 11:38 EDT [place] % 5.1 % 03/16/2021 11:38 EDT [place] # 0.50 K/uL 03/16/2021 11:38 EDT Eos [...] Appearance CLEAR2 03/16/2021 14:09 EDT Urine Specific [place] 1.015 03/17/2021 04:10 EDT Urine Specific [place] 1.014 03/16/2021 14:09 EDT Urine pH Dipstick [...] [1] History and Physical; MARIA ELENA DAVALOS [facility] 03/16/2021 17:39 EDT [2] CR Wrist Min 3 Vws RT; Roni Guerra, Performance Test Consultant 03/16/2021 12:13 EDT documented in this encounter Plan of Treatment Not on file documented as of this encounter Visit Diagnoses Not on filedocumented in this encounter Care Teams Head Of Design Relationship Specialty Start Date End Date Jay Howell MD [address] [place] [phone] PCP - General Emergency Medicine 11/12/23 documented as of this encounter
--- OUTSIDE RECORDS SUMMARY | 2025-08-16 09:06 | XMS_ITS | Encounter Summary ---
Author Organization [employer] ([place], [place], [place], [place]) Address [address] [place] [address] Care Team Providers Care Machine Gun Mechanic Name Role Phone Jay Howell MD Primary Care Provider [phone] Encounter Details Date Type Department Care Team (Late st Contact Info) Description 08/25/2020 Transcribed Document [facility] [place] Family Medicine [address] [place] [address] ProviderJessie MD [address] [place] [address] Social History Tobacco Use Types Packs/Day Years Used Date Smoking Tobacco: Never Assessed Comments Unknown Sex and Gender Information Value Date Recorded Sex Assigned at Not on file Legal Sex Female 7:30 PM CDT Gender Identity Not on file Sexual Orientation Not on file documented as of this encounter Miscellaneous Notes * Cerner Conversion Note - Historical MD Alpa - 08/25/2020 6:23 AM CHARGING OPERATOR Patient: SKYLER MONTOYA Age: 79 years [...] multiple stent placements. The patient presented to [facility] ER after recent fall with [...] Application, Topical, TID, 22 Gram, 0 Refill(s) [place] 7.5 mg-325 mg oral tablet: 1 Tab, [...] Problem list: Medical Arthritis / SNOMED CT 9345182 / Confirmed Atrial fibrillation with RVR / SNOMED CT 6780318497 / Confirmed Cataract / Patient Care / Confirmed Chest pain / SNOMED CT 94861906 / Complaint of COPD / SNOMED CT 08434303 / Confirmed Coronary artery disease / SNOMED CT 6857062194 / Confirmed Diabetes mellitus / SNOMED CT 158187806 / Confirmed GERD - Gastro-esophageal reflux disease / SNOMED CT 6858637092 / Confirmed Glaucoma / Patient Care / Confirmed Chronic anticoagulation / SNOMED CT 886721875 / Confirmed Hx of pulmonary embolus / SNOMED CT 458121337 / Confirmed High blood pressure / SNOMED CT 41609626 / Confirmed History of obstructive sleep apnea / IMO 41471457 / Confirmed Hyperlipidemia / SNOMED CT 73085084 / Confirmed Multiple renal cysts / SNOMED CT 068169892 / Confirmed Emphysema / SNOMED CT 532685679 / Confirmed Apnea, sleep / SNOMED CT 880325810 / Confirmed Stented coronary artery / SNOMED CT 6925971300 / Confirmed UTI - Urinary tract infection / SNOMED CT 9331360859 / Confirmed, Active Problems (21) Apnea, sleep [...] History: Active Cataract Glaucoma Coronary artery disease (3081243356) Stented coronary artery (5440892992) High blood pressure (35429891) Hyperlipidemia (82494739) COPD (56305510) GERD - Gastro-esophageal reflux disease (1443411867) Multiple renal cysts (254735747) UTI - Urinary tract infection (9517887018) Arthritis (1629468) Diabetes mellitus (950244688) Emphysema (524323804) Apnea, sleep (013901646) Hx of pulmonary embolus (704642082) Chronic anticoagulation (733850682) Atrial fibrillation with RVR (1657666234) Family History: Cardiomyopathy Child Stroke Brother Heart attack Brother Sister Leukemia Child Cancer Father Mother Sister Coronary heart disease Child , Significant for hypertension Procedure history: Cardiac Stent in 2010 at 70 Years. Cardiac Stent on 01/30/2008 at 67 Years. Comments: 06/13/2020 8:52 THERESET - EVA WESLEY RN PCI w/ Dresser stent to D1 Coronary artery bypass graft ([id number]) in 1992 at 52 Years. femur repair. Appendectomy (276377429). uterine suspension. Hysterectomy (079514550). back surgury. Cholecystectomy (08562486). Hip replacement (2109739522). cataract surgury. Social History Social & Psychosocial [...] filedocumented in this encounter Care Teams Machine Gun Mechanic Relationship Specialty Start Date End Date Jay Howell MD [address] [place] [phone] PCP - General Emergency Medicine 11/12/23 documented as of this encounter
--- OUTSIDE RECORDS SUMMARY | 2025-08-16 09:06 | XMS_ITS | Encounter Summary ---
Author Organization [employer] ([place], [place], [place], [place]) Address [address] [place] [address] Care Team Providers Care Film Laboratory Technician Name Role Phone Jay Howell MD Primary Care Provider [phone] Encounter Details Date Type Department Care Team (Late st Contact Info) Description 03/17/2021 Transcribed Document [facility] [place] [facility] [place] [address] ProviderJessie MD [address] [place] [phone] Social History Tobacco Use Types Packs/Day Years [...] CARE BEDSIDE NON-EXEMPT - 03/17/2021 6:46 EDT Electronically signed by Gayle Finnegan Conversion Dermatology Nurse Practitioner Cerner at 02/04/2023 2:18 PM CDT documented in this encounter Plan of Treatment Not on file documented as of this encounter Visit Diagnoses Not on filedocumented in this encounter Care Teams Film Laboratory Technician Relationship Specialty Start Date End Date Jay Howell MD [address] [place] [phone] PCP - General Emergency Medicine 11/12/23 documented as of this encounter
--- OUTSIDE RECORDS SUMMARY | 2025-08-16 09:06 | XMS_ITS | Encounter Summary ---
Author Organization [employer] ([place], [place], [place], [place]) Address [address] [place] [address] Care Team Providers Care Manager Continuous Improvement Name Role Phone Jay Howell MD Primary Care Provider [phone] Encounter Details Date Type Department Care Team (Late st Contact Info) Description 08/25/2020 Transcribed Document [facility] [place] [address] [place] [address] ProviderJessie MD [address] [place] [address] Social History Tobacco Use Types Packs/Day Years Used Date Smoking Tobacco: Never Assessed Comments Unknown Sex and Gender Information Value Date Recorded Sex Assigned at Not on file Legal Sex Female 7:30 PM CDT Gender Identity Not on file Sexual Orientation Not on file documented as of this encounter Miscellaneous Notes * Cerner Conversion Note - Jessie Yuen MD - 08/25/2020 5:02 AM PIG CASTING MACHINE OPERATOR Pain Assessment Entered On: 08/25/2020 5:48 EST [...] filedocumented in this encounter Care Teams Manager Continuous Improvement Relationship Specialty Start Date End Date Jay Howell MD [address] [place] [phone] PCP - General Emergency Medicine 11/12/23 documented as of this encounter
--- OUTSIDE RECORDS SUMMARY | 2025-08-16 09:06 | XMS_ITS | Encounter Summary ---
Author Organization [employer] ([place], [place], [place], [place]) Address [address] [place] [address] Care Team Providers Care Print Developer Name Role Phone Jay Howell MD Primary Care Provider [phone] Encounter Details Date Type Department Care Team (Late st Contact Info) Description 08/25/2020 Transcribed Document [facility] [place] [address] [place] [address] ProviderJessie MD [address] [place] [address] Social History Tobacco Use Types Packs/Day Years Used Date Smoking Tobacco: Never Assessed Comments Unknown Sex and Gender Information Value Date Recorded Sex Assigned at Not on file Legal Sex Female 7:30 PM CDT Gender Identity Not on file Sexual Orientation Not on file documented as of this encounter Miscellaneous Notes * Cerner Conversion Note - Historical MD Alpa - 08/25/2020 10:53 AM GROUNDS KEEPER DATE OF CONSULTATION: 08/25/2020 INFECTIOUS DISEASE CONSULTATION [...] team following as above. Discussed with them. /[id number] MD VANESSA Campa/AQ / VANESSA / MODL /[id number] CC: MD David Campa MD Electronically signed by [facility], [facility] Conversion Inclusion Teacher Cerner at 02/04/2023 2:05 PM CDT documented in this encounter Plan of Treatment Not on file documented as of this encounter Visit Diagnoses Not on filedocumented in this encounter Care Teams Print Developer Relationship Specialty Start Date End Date Jay Howell MD [address] [place] [phone] PCP - General Emergency Medicine 11/12/23 documented as of this encounter
--- OUTSIDE RECORDS SUMMARY | 2025-08-16 09:06 | XMS_ITS | Encounter Summary ---
Author Organization [employer] ([place], [place], [place], [place]) Address [address] [place] [address] Care Team Providers Care Excavating Machine Operator Name Role Phone Jay Howell MD Primary Care Provider [phone] Encounter Details Date Type Department Care Team (Late st Contact Info) Description 03/17/2021 Transcribed Document [facility] [place] [facility] [place] [address] ProviderJessie MD [address] [place] [phone] Social History Tobacco Use Types Packs/Day Years [...] BHARTI MAGAÑA MD-NEU - 03/17/2021 14:49 EDT documented in this encounter Plan of Treatment Not on file documented as of this encounter Visit Diagnoses Not on filedocumented in this encounter Care Teams Excavating Machine Operator Relationship Specialty Start Date End Date Jay Howell MD [address] [place] [phone] PCP - General Emergency Medicine 11/12/23 documented as of this encounter
--- OUTSIDE RECORDS SUMMARY | 2025-08-16 09:06 | XMS_ITS | Encounter Summary ---
Author Organization [employer] ([place], [place], [place], [place]) Address [address] [place] [address] Care Team Providers Care Gourmet Coffee Attendant Name Role Phone Jay Howell MD Primary Care Provider [phone] Encounter Details Date Type Department Care Team (Late st Contact Info) Description 03/17/2021 Transcribed Document [facility] [place] [facility] [place] [address] ProviderJessie MD [address] [place], [place] 9[address]161 Social History Tobacco Use Types Packs/Day Years [...] of the form. Electronically signed by Sivan, [facility] Conversion Musician Instrumental Cerner at 02/04/2023 2:16 PM CDT documented in this encounter Plan of Treatment Not on file documented as of this encounter Visit Diagnoses Not on filedocumented in this encounter Care Teams Gourmet Coffee Attendant Relationship Specialty Start Date End Date Jay Howell MD [address] [place] [phone] PCP - General Emergency Medicine 11/12/23 documented as of this encounter
--- OUTSIDE RECORDS SUMMARY | 2025-08-16 09:06 | XMS_ITS | Encounter Summary ---
Author Organization [employer] ([place], [place], [place], [place]) Address [address] [place] [address] Care Team Providers Care Engineer Steam Name Role Phone Jay Howell MD Primary Care Provider [phone] Encounter Details Date Type Department Care Team (Late st Contact Info) Description 03/17/2021 Transcribed Document [facility] [place] [address] [place] [address] ProviderJessie MD [address] [place] [address] Social History Tobacco Use Types Packs/Day Years [...] On: 03/17/2021 9:00 EDT by TASHI LIND [facility] Phone Call for Consults Consult, Additional Information : notified by physician TASHI LIND, [facility] - 03/18/2021 8:31 EDT documented in this encounter Plan of Treatment Not on file documented as of this encounter Visit Diagnoses Not on filedocumented in this encounter Care Teams Engineer Steam Relationship Specialty Start Date End Date Jay Howell MD [address] [place] [phone] PCP - General Emergency Medicine 11/12/23 documented as of this encounter
--- OUTSIDE RECORDS SUMMARY | 2025-08-16 09:06 | XMS_ITS | Encounter Summary ---
Author Organization [employer] ([place], [place], [place], [place]) Address [address] [place] [address] Care Team Providers Care Modeler Name Role Phone Jay Howell MD Primary Care Provider [phone] Encounter Details Date Type Department Care Team (Late st Contact Info) Description 08/24/2020 Transcribed Document [facility] [place] [address] [place] [address] ProviderJessie MD [address] [place], [place] 4848[address] Social History Tobacco Use Types Packs/Day Years Used Date Smoking Tobacco: Never Assessed Comments Unknown Sex and Gender Information Value Date Recorded Sex Assigned at Not on file Legal Sex Female 7:30 PM CDT Gender Identity Not on file Sexual Orientation Not on file documented as of this encounter Miscellaneous Notes * Cerner Conversion Note - Historical ProviderMD - 08/24/2020 7:06 PM RELIGIOUS EDUCATION COORDINATOR CR Ankle Min 3 Vws LT Ordered: [...] on filedocumented in this encounter Care Teams Modeler Relationship Specialty Start Date End Date Jay Howell MD [address] [place] [phone] PCP - General Emergency Medicine 11/12/23 documented as of this encounter
--- OUTSIDE RECORDS SUMMARY | 2025-08-16 09:06 | XMS_ITS | Encounter Summary ---
Author Organization [employer] ([place], [place], [place], [place]) Address [address] [place] [address] Care Team Providers Care Domestic Technician Name Role Phone Jay Howell MD Primary Care Provider [phone] Encounter Details Date Type Department Care Team (Late st Contact Info) Description 03/17/2021 Transcribed Document [facility] [place] [facility] [place] [address] ProviderJessie MD [address] [place], [place] [phone] Social History Tobacco Use Types Packs/Day Years [...] 03/17/2021 15:21 EDT Electronically signed by Sivan [facility] Conversion Educational Speech Language Clinician Cerner at 02/04/2023 2:16 PM CDT documented in this encounter Plan of Treatment Not on file documented as of this encounter Visit Diagnoses Not on filedocumented in this encounter Care Teams Domestic Technician Relationship Specialty Start Date End Date Jay Howell MD [address] [place] [phone] PCP - General Emergency Medicine 11/12/23 documented as of this encounter
--- OUTSIDE RECORDS SUMMARY | 2025-08-16 09:06 | XMS_ITS | Encounter Summary ---
Author Organization [employer] ([place], [place], [place], [place]) Address [address] [place] [address] Care Team Providers Care Track Liner Operator Name Role Phone Jay Howell MD Primary Care Provider [phone] Encounter Details Date Type Department Care Team (Late st Contact Info) Description 03/17/2021 Transcribed Document [facility] Family Medicine [facility] [place] [address] ProviderJessie MD [address] [place] [address] Social History Tobacco Use Types Packs/Day Years [...] filedocumented in this encounter Care Teams Track Liner Operator Relationship Specialty Start Date End Date Jay Howell MD [address] [place] [phone] PCP - General Emergency Medicine 11/12/23 documented as of this encounter
--- OUTSIDE RECORDS SUMMARY | 2025-08-16 09:06 | XMS_ITS | Encounter Summary ---
Author Organization [employer] ([place], [place], [place], [place]) Address [address] [place] [address] Care Team Providers Care Disease Intervention Specialist Name Role Phone Jay Howell MD Primary Care Provider [phone] Encounter Details Date Type Department Care Team (Late st Contact Info) Description 03/17/2021 Transcribed Document [facility] [place] Family [place] [facility] [place] [address] ProviderJessie MD [address] [place] [phone] Social History Tobacco Use Types Packs/Day Years Used Date Smoking Tobacco: Never Assessed Comments Unknown Sex and Gender Information Value Date Recorded Sex Assigned at Not on file Legal Sex Female 7:30 PM CDT Gender Identity Not on file Sexual Orientation Not on file documented as of this encounter Miscellaneous Notes * Cerner Conversion Note - Historical ProviderMD - 03/17/2021 2:00 AM CDT Tar Leveler Details Entered On: 03/17/2021 3:32 EDT Performed [...] - 03/17/2021 3:32 EDT Electronically signed by [facility], [facility] Conversion Cane Pusher Cerner at 02/04/2023 2:22 PM CDT documented in this encounter Plan of Treatment Not on file documented as of this encounter Visit Diagnoses Not on filedocumented in this encounter Care Teams Disease Intervention Specialist Relationship Specialty Start Date End Date Jay Howell MD [address] [place] [phone] PCP - General Emergency Medicine 11/12/23 documented as of this encounter
--- OUTSIDE RECORDS SUMMARY | 2025-08-16 09:06 | XMS_ITS | Encounter Summary ---
Author Organization [employer] ([place], [place], [place], [place]) Address [address] [place] [address] Care Team Providers Care Qual Research Manager Name Role Phone Jay Howell MD Primary Care Provider [phone] Encounter Details Date Type Department Care Team (Late st Contact Info) Description 08/25/2020 Transcribed Document [facility] [place] Family Medicine [address] [place] [address] ProviderJessie MD [address] [place] [address] Social History Tobacco Use Types Packs/Day Years Used Date Smoking Tobacco: Never Assessed Comments Unknown Sex and Gender Information Value Date Recorded Sex Assigned at Not on file Legal Sex Female 7:30 PM CDT Gender Identity Not on file Sexual Orientation Not on file documented as of this encounter Miscellaneous Notes * Cerner Conversion Note - Jessie Yuen MD - 08/25/2020 7:11 AM CLINICAL PSYCHOLOGIST Pain Assessment Entered On: 08/26/2020 1:56 EST [...] on filedocumented in this encounter Care Teams Qual Research Manager Relationship Specialty Start Date End Date Jay Howell MD [address] [place] [phone] PCP - General Emergency Medicine 11/12/23 documented as of this encounter
--- OUTSIDE RECORDS SUMMARY | 2025-08-16 09:06 | XMS_ITS | Encounter Summary ---
Author Organization [employer] ([place], [place], [place], [place]) Address [address] [place] [address] Care Team Providers Care Chemical Packager Name Role Phone Jay Howell MD Primary Care Provider [phone] Encounter Details Date Type Department Care Team (Late st Contact Info) Description 08/25/2020 Transcribed Document [facility] [place] [address] [place] [address] ProviderJessie MD [address] [place] [address] Social History Tobacco Use Types Packs/Day Years Used Date Smoking Tobacco: Never Assessed Comments Unknown Sex and Gender Information Value Date Recorded Sex Assigned at Not on file Legal Sex Female 7:30 PM CDT Gender Identity Not on file Sexual Orientation Not on file documented as of this encounter Miscellaneous Notes * Cerner Conversion Note - Jessie Yuen MD - 08/25/2020 5:05 AM JACK TAMP OPERATOR Patient: SKYLER MONTOYA Age: 79 years [...] 06/13/2020 8:52 EVA LAWS RN PCI w/ Marion stent to D1 Coronary artery bypass graft ([id number]) in 1992 at 52 Years. femur repair. Appendectomy ([id number]). uterine suspension. Hysterectomy (418951168). back surgury. Cholecystectomy (23975505). Hip replacement ([id number]). cataract surgury. . Family history: Cardiomyopathy Child [...] EST Height Source Stated Height Entry Format [place] Height/Length, WELSH (ft) 5 ft Height/Length WELSH 3 Inch CLINICALHEIGHT 160.02 cm [place] Body Weight 52.02 kg Weight Source, ED Critical estimated dosing weight Weight Entry Format [place] Weight [place] lb 152 lb CLINICALWEIGHT 69.09 kg Body [...] Stain: Ordered ED Fall Risk Documented: ED tea taster: Normal Saline 1,000 mL: 75 mL/Hr, IntraVENous [...] Application, Topical, TID, 22 Gram, 0 Refill(s) Harviell 7.5 mg-325 mg oral tablet: 1 Tab, [...] % 32.7 % Lymph # 1.98 x10(3)/uL Cedar % 10.2 % HI Cedar # 0.62 K/uL Eos % 0.0 % [...] DAVALOS MD-INT . Electronically signed by Sivan [facility] Conversion Rehanger Cerner at 02/04/2023 2:03 PM CDT documented in this encounter Plan of Treatment Not on file documented as of this encounter Visit Diagnoses Not on filedocumented in this encounter Care Teams Chemical Packager Relationship Specialty Start Date End Date Jay Howell MD [address] [place] [phone] PCP - General Emergency Medicine 11/12/23 documented as of this encounter
--- OUTSIDE RECORDS SUMMARY | 2025-08-16 09:06 | XMS_ITS | Encounter Summary ---
Author Organization [employer] ([place], [place], [place], [place]) Address [address] [place] [address] Care Team Providers Care Heating Unit Installer Name Role Phone Jay Howell MD Primary Care Provider [phone] Encounter Details Date Type Department Care Team (Late st Contact Info) Description 03/17/2021 Transcribed Document [facility] [place] [address] [place] [address] ProviderJessie MD [address] [place] [address] Social History Tobacco Use Types Packs/Day Years [...] Lymph # 1.52 x10(3)/uL 03/16/2021 11:38 EDT [place] % 5.1 % 03/16/2021 11:38 EDT [place] # 0.50 K/uL 03/16/2021 11:38 EDT Eos [...] Appearance CLEAR2 03/16/2021 14:09 EDT Urine Specific [place] 1.015 03/17/2021 04:10 EDT Urine Specific [place] 1.014 03/16/2021 14:09 EDT Urine pH Dipstick [...] EDT Electronically signed by Gayle Finnegan Conversion Electrode Cleaning Machine Operator Cerner at 02/04/2023 2:09 PM CDT documented in this encounter Plan of Treatment Not on file documented as of this encounter Visit Diagnoses Not on filedocumented in this encounter Care Teams Heating Unit Installer Relationship Specialty Start Date End Date Jay Howell MD [address] [place] [phone] PCP - General Emergency Medicine 11/12/23 documented as of this encounter
--- OUTSIDE RECORDS SUMMARY | 2025-08-16 09:06 | XMS_ITS | Encounter Summary ---
Author Organization [employer] ([place], [place], [place], [place]) Address [address] [place] [address] Care Team Providers Care Breaker Engineer Name Role Phone Jay Howell MD Primary Care Provider [phone] Encounter Details Date Type Department Care Team (Late st Contact Info) Description 03/17/2021 Transcribed Document [facility] [place] [address] [place] [address] ProviderJessie MD [address] [place] [address] Social History Tobacco Use Types Packs/Day Years [...] Insurance 1 Health Plan: MEDICARE Policy Number: [id number] Authorization Number: Insurance 2 Health Plan: A[employer] N Policy Number: [id number] Authorization Number: Insurance Primary Name : MEDICARE Policy Number: [id number] Authorized Service Begin Date-Primary : 03/16/2021 EDT Historical Authorization Comments-Primary : No Authorization Comments Found MARILYNN RAMÍREZ, RN-Utilization Review - 03/17/2021 12:48 EDT documented in this encounter Plan of Treatment Not on file documented as of this encounter Visit Diagnoses Not on filedocumented in this encounter Care Teams Breaker Engineer Relationship Specialty Start Date End Date Jay Howell MD [address] [place] [phone] PCP - General Emergency Medicine 11/12/23 documented as of this encounter
--- OUTSIDE RECORDS SUMMARY | 2025-08-16 09:06 | XMS_ITS | Encounter Summary ---
Author Organization [employer] ([place], [place], [place], [place]) Address [address] [place] [address] Care Team Providers Care Transverse Abdominal Muscle Nurse Name Role Phone Jay Howell MD Primary Care Provider [phone] Encounter Details Date Type Department Care Team (Late st Contact Info) Description 08/25/2020 Transcribed Document [facility] Family Medicine [address] [place] [address] ProviderJessie MD [address] [place] [address] Social History Tobacco Use Types Packs/Day Years Used Date Smoking Tobacco: Never Assessed Comments Unknown Sex and Gender Information Value Date Recorded Sex Assigned at Not on file Legal Sex Female 7:30 PM CDT Gender Identity Not on file Sexual Orientation Not on file documented as of this encounter Miscellaneous Notes * Cerner Conversion Note - Jessie Yuen MD - 08/25/2020 4:33 AM FENCE SUPERVISOR ED Triage Entered On: 08/25/2020 4:45 EST [...] : 3 - Urgent Tracking Group : [facility] ED Deisi Vasquez RN - 08/25/2020 [...] 04:45:44 EST) Problems(Active) Apnea, sleep (SNOMED CT :647224234 ) Name of Problem: Apnea, sleep ; Recorder: JUAN LUIS GIL RN; Confirmation: Confirmed ; Classification: Medical ; Code: [id number] ; Contributor System: PowerChart ; Last Updated: 11/12/2014 10:12 EST ; Life Cycle Date: 11/12/2014 ; Life Cycle Status: Active ; Vocabulary: SNOMED CT Arthritis (SNOMED CT :1342330 ) Name of Problem: Arthritis ; Recorder: KENYON CHAMBERS RN; Confirmation: Confirmed ; Classification: Medical ; Code: 1297823 ; Contributor System: PowerChart ; Last Updated: 04/10/2016 8:04 EDT ; Life Cycle Date: 08/13/2013 ; Life Cycle Status: Active ; Vocabulary: SNOMED CT Atrial fibrillation with RVR (SNOMED CT :4976424985 ) Name of Problem: Atrial fibrillation with RVR ; Recorder: SANG RICO APRN; Confirmation: Confirmed ; Classification: Medical ; Code: 6982906329 ; Contributor System: PowerChart ; Last Updated: 04/10/2016 8:05 EDT ; Life Cycle Date: 04/10/2016 ; Life Cycle Status: Active ; Responsible Provider: SANG RICO APRN; Vocabulary: SNOMED CT Blood clot (SNOMED CT :575796981 ) Name of Problem: Blood clot ; Recorder: KENYON CHAMBERS RN; Confirmation: Confirmed ; Classification: Patient Stated ; Code: 750175077 ; Contributor System: PowerChart ; Last Updated: [...] Vocabulary: Patient Care Chest pain (SNOMED CT :17580273 ) Name of Problem: Chest pain ; Recorder: SANG RICO APRN; Confirmation: Complaint of ; Classification: Medical ; Code: 06081750 ; Contributor System: Crimson RenewableChart ; Last Updated: 04/10/2016 8:05 EDT ; Life Cycle Status: Active ; Responsible Provider: SANG RICO APRN; Vocabulary: SNOMED CT Chronic anticoagulation (SNOMED CT :211017718 ) Name of Problem: Chronic anticoagulation ; Recorder: SANG RICO APRN; Confirmation: Confirmed ; Classification: Medical ; Code: 507611781 ; Contributor System: PowerChart ; Last Updated: 04/10/2016 8:05 EDT ; Life Cycle Date: 04/10/2016 ; Life Cycle Status: Active ; Responsible Provider: SANG RICO APRN; Vocabulary: SNOMED CT Clotting disorder (SNOMED CT :652965410 ) Name of Problem: Clotting disorder ; Recorder: KENYON CHAMBERS RN; Confirmation: Confirmed ; Classification: Patient Stated ; Code: 618319598 ; Contributor System: Crimson RenewableChart ; Last Updated: 03/28/2014 19:29 EDT ; Life Cycle Date: 08/13/2013 ; Life Cycle Status: Active ; Vocabulary: SNOMED CT COPD (SNOMED CT :91885308 ) Name of Problem: COPD ; Recorder: KENYON CHAMBERS RN; Confirmation: Confirmed ; Classification: Medical ; Code: 42429893 ; Contributor System: [employer]son RenewableChart ; Last Updated: 04/10/2016 8:03 EDT ; Life Cycle Date: 08/13/2013 ; Life Cycle Status: Active ; Vocabulary: SNOMED CT Coronary artery disease (SNOMED CT :6870266148 ) Name of Problem: Coronary artery disease ; Recorder: KENYON CHAMBERS RN; Confirmation: Confirmed ; Classification: Medical ; Code: 1536972710 ; Contributor System: [employer]son RenewableChart ; Last Updated: 04/10/2016 8:03 EDT ; Life Cycle Date: 08/13/2013 ; Life Cycle Status: Active ; Vocabulary: SNOMED CT Diabetes mellitus (SNOMED CT :734658970 ) Name of Problem: Diabetes mellitus ; Recorder: KENYON CHAMBERS RN; Confirmation: Confirmed ; Classification: Medical ; Code: 896023664 ; Contributor System: [employer]son RenewableChart ; Last Updated: 04/10/2016 8:04 EDT ; Life Cycle Date: 08/13/2013 ; Life Cycle Status: Active ; Vocabulary: SNOMED CT Emphysema (SNOMED CT :433846381 ) Name of Problem: Emphysema ; Recorder: JUAN LUIS GIL RN; Confirmation: Confirmed ; Classification: Medical ; Code: 720265654 ; Contributor System: PowerChart ; Last Updated: 11/12/2014 10:11 EST ; Life Cycle Date: 11/12/2014 ; Life Cycle Status: Active ; Vocabulary: SNOMED CT GERD - Gastro-esophageal reflux disease (SNOMED CT :4880991799 ) Name of Problem: GERD - Gastro-esophageal reflux disease ; Recorder: KENYON CHAMBERS RN; Confirmation: Confirmed ; Classification: Medical ; Code: 7099559088 ; Contributor System: PowerChart ; Last Updated: [...] Patient Care High blood pressure (SNOMED CT :81951170 ) Name of Problem: High blood pressure ; Recorder: KENYON CHAMBERS RN; Confirmation: Confirmed ; Classification: Medical ; Code: 22562450 ; Contributor System: PowerChart ; Last Updated: 04/10/2016 8:03 EDT ; Life Cycle Date: 08/13/2013 ; Life Cycle Status: Active ; Vocabulary: SNOMED CT History of obstructive sleep apnea (IMO :62973884 ) Name of Problem: History of obstructive sleep apnea ; Recorder: SYSTEM, SYSTEM; Confirmation: Confirmed ; Classification: Medical ; Code: 42780185 ; Last Updated: 12/20/2018 12:01 EST ; Life Cycle Date: 12/20/2018 ; Life Cycle Status: Active ; Vocabulary: IMO Hx of pulmonary embolus (SNOMED CT :192143304 ) Name of Problem: Hx of pulmonary embolus ; Recorder: SANG RICO APRN; Confirmation: Confirmed ; Classification: Medical ; Code: 545556788 ; Contributor System: PowerChart ; Last Updated: 04/10/2016 8:05 EDT ; Life Cycle Date: 04/10/2016 ; Life Cycle Status: Active ; Responsible Provider: SANG RICO APRN; Vocabulary: SNOMED CT Hyperlipidemia (SNOMED CT :65158418 ) Name of Problem: Hyperlipidemia ; Recorder: KENYON CHAMBERS RN; Confirmation: Confirmed ; Classification: Medical ; Code: 00405324 ; Contributor System: PowerChart ; Last Updated: 04/10/2016 8:03 EDT ; Life Cycle Date: 08/13/2013 ; Life Cycle Status: Active ; Vocabulary: SNOMED CT Multiple renal cysts (SNOMED CT :306342094 ) Name of Problem: Multiple renal cysts ; Recorder: KENYON CHAMBERS RN; Confirmation: Confirmed ; Classification: Medical ; Code: 031516240 ; Contributor System: PowerChart ; Last Updated: 04/10/2016 8:04 EDT ; Life Cycle Date: 08/13/2013 ; Life Cycle Status: Active ; Vocabulary: SNOMED CT Stented coronary artery (SNOMED CT :0331364364 ) Name of Problem: Stented coronary artery ; Recorder: KENYON CHAMBERS RN; Confirmation: Confirmed ; Classification: Medical ; Code: 9235753069 ; Contributor System: PowerChart ; Last Updated: 04/10/2016 8:03 EDT ; Life Cycle Date: 08/13/2013 ; Life Cycle Status: Active ; Vocabulary: SNOMED CT UTI - Urinary tract infection (SNOMED CT :1847941423 ) Name of Problem: UTI - Urinary tract infection ; Recorder: KENYON CHAMBERS RN; Confirmation: Confirmed ; Classification: Medical ; Code: 9672746698 ; Contributor System: PowerChart ; Last Updated: 04/10/2016 8:04 EDT ; Life Cycle Date: 08/13/2013 ; Life Cycle Status: Active ; Vocabulary: SNOMED CT Diagnoses(Active) Medical screening exam Date: 08/25/2020 ; Diagnosis Type: Reason For Visit ; Confirmation: Complaint of ; Clinical Dx: Medical screening exam ; Classification: Medical ; Clinical Service: Non-Specified ; Code: PNED ; Probability: 0 ; Diagnosis Code: [id number] ED Height and Weight Height Source : Stated Height Entry Format : [place] Height, Feet : 5 ft(Converted to: 152 cm, 60 Inch) Height, Inches : 3 Inch(Converted to: 0 ft 3 Inch, 7.62 cm) Clinical Height : 160.02 cm Weight Source, ED : Critical estimated dosing weight Weight Entry Format : [place] Weight, Pounds : 152 lb Clinical Dosing Weight : 69.09 kg Body Surface Area (BSA) : 1.72 m2 Body Mass Index : 27 kg/m2 (HI) Sentinel Body Weight (IBW) : 52.02 kg Deisi Vasquez RN - 08/25/2020 4:41 EST Electronically signed by [facility], [facility] Conversion Invasive Manager Cerner at 02/04/2023 1:59 PM CDT documented in this encounter Plan of Treatment Not on file documented as of this encounter Visit Diagnoses Not on filedocumented in this encounter Care Teams Transverse Abdominal Muscle Nurse Relationship Specialty Start Date End Date aJy Howell MD [address] [place] [phone] PCP - General Emergency Medicine 11/12/23 documented as of this encounter
--- OUTSIDE RECORDS SUMMARY | 2025-08-16 09:06 | XMS_ITS | Encounter Summary ---
Author Organization [employer] ([place], [place], [place], [place]) Address [address] [place] [address] Care Team Providers Care Data Capture Specialist Name Role Phone Jay Howell MD Primary Care Provider [phone] Encounter Details Date Type Department Care Team (Late st Contact Info) Description 03/17/2021 Transcribed Document [facility] [place] [address] ProviderJessie MD [address] [place], [place] [address] Social History Tobacco Use Types Packs/Day Years [...] filedocumented in this encounter Care Teams Data Capture Specialist Relationship Specialty Start Date End Date Jay Howell MD [address] [place] [phone] PCP - General Emergency Medicine 11/12/23 documented as of this encounter
--- OUTSIDE RECORDS SUMMARY | 2025-08-16 09:07 | XMS_ITS | Encounter Summary ---
Author Organization [employer] ([place], [place], [place], [place]) Address [address] [place] [address] Care Team Providers Care Education Program Specialist Name Role Phone Jay Howell MD Primary Care Provider [phone] Encounter Details Date Type Department Care Team (Late st Contact Info) Description 03/17/2021 Transcribed Document [facility] [place] [facility] [place] [address] ProviderJessie MD [address] [place], [place] [address] Social History Tobacco Use Types Packs/Day Years [...] of the form. Electronically signed by Sivan, [facility] Conversion Card Game Operator Cerner at 02/04/2023 2:00 PM CDT documented in this encounter Plan of Treatment Not on file documented as of this encounter Visit Diagnoses Not on filedocumented in this encounter Care Teams Education Program Specialist Relationship Specialty Start Date End Date Jay Howell MD [address] [place] [phone] PCP - General Emergency Medicine 11/12/23 documented as of this encounter
--- OUTSIDE RECORDS SUMMARY | 2025-08-16 09:07 | XMS_ITS | Encounter Summary ---
Author Organization [employer] ([place], [place], [place], [place]) Address [address] [place] [address] Care Team Providers Care Vessel Crew Member Name Role Phone Jay Howell MD Primary Care Provider [phone] Encounter Details Date Type Department Care Team (Late st Contact Info) Description 08/26/2020 Transcribed Document [facility] [place] Family Medicine [address] [place] [address] ProviderJessie MD [address] [place], [place] [address] Social History Tobacco Use Types Packs/Day Years Used Date Smoking Tobacco: Never Assessed Comments Unknown Sex and Gender Information Value Date Recorded Sex Assigned at Not on file Legal Sex Female 7:30 PM CDT Gender Identity Not on file Sexual Orientation Not on file documented as of this encounter Miscellaneous Notes * Cerner Conversion Note - Historical ProviderMD - 08/26/2020 1:15 PM JOB DEVELOPER [facility] Main OR Preop Summary Primary Physician: KAELA HEBERT MD Finalized Date/Time: 08/26/20 13:59:45 Pt. Name: SKYLER MONTOYA.O.B./Sex: 1940 Female Med Rec #: [id number] Physician: BETH DAVALOS MD-INT Financial #: [id number] Pt. Type: I [facility]/ Admit/Disch: 08/25/20 05:53:00 - Institution: [facility] PreOp Case Times Entry 1 In Preop 08/26/20 10:52:00 Ready for Holding n/a Room Patient Ready for 08/26/20 11:30:00 Surgery Patient Out of Preop 08/26/20 12:57:00 Patient Out of n/a Holding Room Last Modified By: CARLTON GUTIERREZ 08/26/20 13:59:44 [facility] PreOp Case Times Audit 08/26/20 13:59:44 Creel Hand: BEATRISFEVJ Modifier: GAHAFEVJ <+> 1 Patient Out of Preop 08/26/20 11:36:02 Creel Hand: BEATRISFEVJ Modifier: GAHAFEVJ <+> 1 Patient Ready for Surgery Finalized By: CARLTON GUTIERREZ Document Signatures Signed By: CARLTON GUTIERREZ 08/26/20 13:59 Electronically signed by Sivan [facility] Conversion Scale Balancer Cerner at 02/04/2023 2:16 PM CDT documented in this encounter Plan of Treatment Not on file documented as of this encounter Visit Diagnoses Not on filedocumented in this encounter Care Teams Vessel Crew Member Relationship Specialty Start Date End Date Jay Howell MD [address] [place] [phone] PCP - General Emergency Medicine 11/12/23 documented as of this encounter
--- OUTSIDE RECORDS SUMMARY | 2025-08-16 09:07 | XMS_ITS | Encounter Summary ---
Author Organization [employer] ([place], [place], [place], [place]) Address [address] [place] [address] Care Team Providers Care Egg Caser Name Role Phone Jay Howell MD Primary Care Provider [phone] Encounter Details Date Type Department Care Team (Late st Contact Info) Description 08/26/2020 Transcribed Document [facility] [place] Medicine [address] [place] [address] ProviderJessie MD [address] [place], [place] [address] Social History Tobacco Use Types Packs/Day Years Used Date Smoking Tobacco: Never Assessed Comments Unknown Sex and Gender Information Value Date Recorded Sex Assigned at Not on file Legal Sex Female 7:30 PM CDT Gender Identity Not on file Sexual Orientation Not on file documented as of this encounter Miscellaneous Notes * Cerner Conversion Note - Historical ProviderMD - 08/26/2020 2:41 PM SYSTEMS ANALYST DEVELOPER Event Note Entered On: 08/26/2020 14:42 EST [...] - 08/26/2020 18:03 EST Electronically signed by [facility], [facility] Conversion Broth Mixer Cerner at 02/04/2023 2:15 PM CDT documented in this encounter Plan of Treatment Not on file documented as of this encounter Visit Diagnoses Not on filedocumented in this encounter Care Teams Egg Caser Relationship Specialty Start Date End Date Jay Howell MD [address] [place] [phone] PCP - General Emergency Medicine 11/12/23 documented as of this encounter
--- OUTSIDE RECORDS SUMMARY | 2025-08-16 09:07 | XMS_ITS | Encounter Summary ---
Author Organization [employer] ([place], [place], [place], [place]) Address [address] [place] [address] Care Team Providers Care Clinical Appeals Auditor Name Role Phone Jay Howell MD Primary Care Provider [phone] Encounter Details Date Type Department Care Team (Late st Contact Info) Description 03/18/2021 Transcribed Document [facility] [place] [address] [place] [address] ProviderJessie MD [address] [place] [address] 164951 Social History Tobacco Use Types Packs/Day Years [...] filedocumented in this encounter Care Teams Clinical Appeals Auditor Relationship Specialty Start Date End Date Jay Howell MD [address] [place] [phone] PCP - General Emergency Medicine 11/12/23 documented as of this encounter
--- OUTSIDE RECORDS SUMMARY | 2025-08-16 09:07 | XMS_ITS | Encounter Summary ---
Author Organization [employer] ([place], [place], [place], [place]) Address [address] [place] [address] Care Team Providers Care Sample Maker Hand Name Role Phone Jay Howell MD Primary Care Provider [phone] Encounter Details Date Type Department Care Team (Late st Contact Info) Description 03/17/2021 Transcribed Document [facility] [place] [address] [place] [address] ProviderJessie MD [address] [place] [address] Social History Tobacco Use Types Packs/Day Years [...] on filedocumented in this encounter Care Teams Sample Maker Hand Relationship Specialty Start Date End Date Jay Howell MD [address] [place] [phone] PCP - General Emergency Medicine 11/12/23 documented as of this encounter
--- OUTSIDE RECORDS SUMMARY | 2025-08-16 09:07 | XMS_ITS | Encounter Summary ---
Author Organization [employer] ([place], [place], [place], [place]) Address [address] [place] [address] Care Team Providers Care Manufacturing Engineer Supervisor Name Role Phone Jay Howell MD Primary Care Provider [phone] Encounter Details Date Type Department Care Team (Late st Contact Info) Description 03/19/2021 Transcribed Document [facility] [place] [address] [place] [address] ProviderJessie MD [address] [place] [address] Social History Tobacco Use Types Packs/Day Years [...] KENDRA ROJAS, PT - 03/19/2021 17:49 EDT Musculoskeletal Physiotherapist Goals Mobility/Bed Mobility LTG PT Grid Goal [...] 03/19/2021 16:05 EDT Electronically signed by Sivan [facility] Conversion Mission Systems Engineer Cerner at 02/04/2023 1:59 PM CDT documented in this encounter Plan of Treatment Not on file documented as of this encounter Visit Diagnoses Not on filedocumented in this encounter Care Teams Manufacturing Engineer Supervisor Relationship Specialty Start Date End Date Jay Howell MD [address] [place] [phone] PCP - General Emergency Medicine 11/12/23 documented as of this encounter
--- OUTSIDE RECORDS SUMMARY | 2025-08-16 09:07 | XMS_ITS | Encounter Summary ---
Author Organization [employer] ([place], [place], [place], [place]) Address [address] [place] [address] Care Team Providers Care Math And Science Division Chair Name Role Phone Jay Howell MD Primary Care Provider [phone] Encounter Details Date Type Department Care Team (Late st Contact Info) Description 08/25/2020 Transcribed Document [facility] [place] [address] [place] [address] ProviderJessie MD [address] [place] [address] Social History Tobacco Use Types Packs/Day Years Used Date Smoking Tobacco: Never Assessed Comments Unknown Sex and Gender Information Value Date Recorded Sex Assigned at Not on file Legal Sex Female 7:30 PM CDT Gender Identity Not on file Sexual Orientation Not on file documented as of this encounter Miscellaneous Notes * Cerner Conversion Note - Jessie ProviderMD - 08/25/2020 5:06 PM WASHATERIA ATTENDANT Meds to Bed Enrollment Entered On: 08/26/2020 [...] on filedocumented in this encounter Care Teams Math And Science Division Chair Relationship Specialty Start Date End Date Jay Howell MD [address] [place] [phone] PCP - General Emergency Medicine 11/12/23 documented as of this encounter
--- OUTSIDE RECORDS SUMMARY | 2025-08-16 09:07 | XMS_ITS | Encounter Summary ---
Author Organization [employer] ([place], [place], [place], [place]) Address [address] [place] [address] Care Team Providers Care Stamping Die Maker Bench Name Role Phone Jay Howell MD Primary Care Provider [phone] Encounter Details Date Type Department Care Team (Late st Contact Info) Description 08/25/2020 Transcribed Document [facility] [place] [facility] [place] [address] ProviderJessie MD [address] [place] [address] Social History Tobacco Use Types Packs/Day Years Used Date Smoking Tobacco: Never Assessed Comments Unknown Sex and Gender Information Value Date Recorded Sex Assigned at Not on file Legal Sex Female 7:30 PM CDT Gender Identity Not on file Sexual Orientation Not on file documented as of this encounter Miscellaneous Notes * Cerner Conversion Note - Historical ProviderMD - 08/25/2020 10:42 AM PACKAGER HAND Patient: SKYLER MONTOYA Age: 79 years Sex: Female : 1940 Associated Diagnoses: None Author: KAVITHA HIDALGO MD-INF ID CONSULT DICTATED documented in this encounter Plan of Treatment Not on file documented as of this encounter Visit Diagnoses Not on filedocumented in this encounter Care Teams Stamping Die Maker Bench Relationship Specialty Start Date End Date Jay Howell MD [address] [place] [phone] PCP - General Emergency Medicine 11/12/23 documented as of this encounter
--- OUTSIDE RECORDS SUMMARY | 2025-08-16 09:07 | XMS_ITS | Encounter Summary ---
Author Organization [employer] ([place], [place], [place], [place]) Address [address] [place] [address] Care Team Providers Care Communications And Signals Supervisor Name Role Phone Jay Howell MD Primary Care Provider [phone] Encounter Details Date Type Department Care Team (Late st Contact Info) Description 08/25/2020 Transcribed Document [facility] [place] [address] [place] [address] ProviderJessie MD [address] [place] [address] Social History Tobacco Use Types Packs/Day Years Used Date Smoking Tobacco: Never Assessed Comments Unknown Sex and Gender Information Value Date Recorded Sex Assigned at Not on file Legal Sex Female 7:30 PM CDT Gender Identity Not on file Sexual Orientation Not on file documented as of this encounter Miscellaneous Notes * Cerner Conversion Note - Jessie ProviderMD - 08/25/2020 8:09 AM DEPUTY SHERIFF GENERALIST ED Event Note Entered On: 08/25/2020 8:11 [...] 08/25/2020 8:09 EST Electronically signed by Sivan [facility] Conversion Flexographic Press Plate Setter Cerner at 02/04/2023 2:06 PM CDT documented in this encounter Plan of Treatment Not on file documented as of this encounter Visit Diagnoses Not on filedocumented in this encounter Care Teams Communications And Signals Supervisor Relationship Specialty Start Date End Date Jay Howell MD [address] [place] [phone] PCP - General Emergency Medicine 11/12/23 documented as of this encounter
--- OUTSIDE RECORDS SUMMARY | 2025-08-16 09:07 | XMS_ITS | Encounter Summary ---
Author Organization [employer] ([place], [place], [place], [place]) Address [address] [place] [address] Care Team Providers Care Recyclable Materials Distributor Name Role Phone Jay Howell MD Primary Care Provider [phone] Encounter Details Date Type Department Care Team (Late st Contact Info) Description 03/18/2021 Transcribed Document [facility] [place] [address] [place] [address] ProviderJessie MD [address] [place] [address] 768241 Social History Tobacco Use Types Packs/Day Years [...] 03/18/2021 15:01 EDT by Krystina Giang V, Allocation Analyst Demolitionist Care Management Progress Note Discharge Arrangements : [...] Multidisciplinary Rounds? : Yes Krystina Giang V Allocation Analyst [facility] [place] 03/18/2021 15:01 EDT Narrative Progress Note [...] to follow dc plan Krystina Giang V Allocation Analyst [facility] [place] 03/18/2021 15:01 EDT Electronically signed by Sivan [facility] Conversion Sludge Mill Operator Cerner at 02/04/2023 1:55 PM CDT documented in this encounter Plan of Treatment Not on file documented as of this encounter Visit Diagnoses Not on filedocumented in this encounter Care Teams Recyclable Materials Distributor Relationship Specialty Start Date End Date Jay Howell MD [address] [place] [phone] PCP - General Emergency Medicine 11/12/23 documented as of this encounter
--- OUTSIDE RECORDS SUMMARY | 2025-08-16 09:07 | XMS_ITS | Encounter Summary ---
Author Organization [employer] ([place], [place], [place], [place]) Address [address] [place] [address] Care Team Providers Care Tray Checker Name Role Phone Jay Howell MD Primary Care Provider [phone] Encounter Details Date Type Department Care Team (Late st Contact Info) Description 08/25/2020 Transcribed Document [facility] [place] [address] [place] [address] ProviderJessie MD [address] [place] [address] Social History Tobacco Use Types Packs/Day Years Used Date Smoking Tobacco: Never Assessed Comments Unknown Sex and Gender Information Value Date Recorded Sex Assigned at Not on file Legal Sex Female 7:30 PM CDT Gender Identity Not on file Sexual Orientation Not on file documented as of this encounter Miscellaneous Notes * Cerner Conversion Note - Historical ProviderMD - 08/25/2020 1:02 PM E COMMERCE MANAGER Patient: SKYLER MONTOYA Age: 79 years [...] Dr. Avtar Moeller Electronically signed by Sivan, [facility] Conversion Evp Strategy Cerner at 02/04/2023 2:06 PM CDT documented in this encounter Plan of Treatment Not on file documented as of this encounter Visit Diagnoses Not on filedocumented in this encounter Care Teams Tray Checker Relationship Specialty Start Date End Date Jay Howell MD [address] [place] [phone] PCP - General Emergency Medicine 11/12/23 documented as of this encounter
--- OUTSIDE RECORDS SUMMARY | 2025-08-16 09:07 | XMS_ITS | Encounter Summary ---
Author Organization [employer] ([place], [place], [place], [place]) Address [address] [place] [address] Care Team Providers Care Agent Contract Clerk Name Role Phone Jay Howell MD Primary Care Provider [phone] Encounter Details Date Type Department Care Team (Late st Contact Info) Description 08/26/2020 Transcribed Document [facility] [place] [address] [place] [address] ProviderJessie MD [address] [place], [place] [address] Social History Tobacco Use Types Packs/Day Years Used Date Smoking Tobacco: Never Assessed Comments Unknown Sex and Gender Information Value Date Recorded Sex Assigned at Not on file Legal Sex Female 7:30 PM CDT Gender Identity Not on file Sexual Orientation Not on file documented as of this encounter Miscellaneous Notes * Cerner Conversion Note - Historical ProviderMD - 08/26/2020 11:38 AM COLLECTION SYSTEMS MODELER Event Note Entered On: 08/26/2020 11:38 EST Performed On: 08/26/2020 11:38 EST by CARLTON GUTIERREZ Event Note Event Date/Time : 08/26/2020 11:15 EST Event Location : [place] Event Details : Other: Description of Event : 1115: [facility] PT 25 INR 2.4 CARLTON GUTIERREZ - 08/26/2020 11:38 EST Electronically signed by Sivan [facility] Conversion Hand Trucker Cerner at 02/04/2023 2:15 PM CDT documented in this encounter Plan of Treatment Not on file documented as of this encounter Visit Diagnoses Not on filedocumented in this encounter Care Teams Agent Contract Clerk Relationship Specialty Start Date End Date Jay Howell MD [address] [place] [phone] PCP - General Emergency Medicine 11/12/23 documented as of this encounter
--- OUTSIDE RECORDS SUMMARY | 2025-08-16 09:07 | XMS_ITS | Encounter Summary ---
Author Organization [employer] ([place], [place], [place], [place]) Address [address] [place] [address] Care Team Providers Care Nurse Advisor Name Role Phone Jay Howell MD Primary Care Provider [phone] Encounter Details Date Type Department Care Team (Late st Contact Info) Description 08/26/2020 Transcribed Document [facility] [place] [address] [place] [address] ProviderJessie MD [address] [place] [address] Social History Tobacco Use Types Packs/Day Years Used Date Smoking Tobacco: Never Assessed Comments Unknown Sex and Gender Information Value Date Recorded Sex Assigned at Not on file Legal Sex Female 7:30 PM CDT Gender Identity Not on file Sexual Orientation Not on file documented as of this encounter Miscellaneous Notes * Cerner Conversion Note - Historical ProviderMD - 08/26/2020 6:06 PM ACCOUNTANT SUPERVISOR Spiritual Care Short Form Entered On: 08/26/2020 18:06 EST Performed On: 08/26/2020 18:06 EST by JEREMIAH HULL General Information, Spiritual Care Spiritual Care Referred by : Nurse Reason for Visit : Referral/Consult Rastafarian Preference : Oriental Orthodox JEREMIAH HULL - 08/26/2020 18:06 EST documented in this encounter Plan of Treatment Not on file documented as of this encounter Visit Diagnoses Not on filedocumented in this encounter Care Teams Nurse Advisor Relationship Specialty Start Date End Date Jay Howell MD [address] [place] [phone] PCP - General Emergency Medicine 11/12/23 documented as of this encounter
--- OUTSIDE RECORDS SUMMARY | 2025-08-16 09:07 | XMS_ITS | Encounter Summary ---
Author Organization [employer] ([place], [place], [place], [place]) Address [address] [place] [address] Care Team Providers Care Hospice Bereavement Coordinator Name Role Phone Jay Howell MD Primary Care Provider [phone] Encounter Details Date Type Department Care Team (Late st Contact Info) Description 08/25/2020 Transcribed Document [facility] [place] [address] [place] [address] ProviderJessie MD [address] [place] [address] Social History Tobacco Use Types Packs/Day Years Used Date Smoking Tobacco: Never Assessed Comments Unknown Sex and Gender Information Value Date Recorded Sex Assigned at Not on file Legal Sex Female 7:30 PM CDT Gender Identity Not on file Sexual Orientation Not on file documented as of this encounter Miscellaneous Notes * Cerner Conversion Note - Historical ProviderMD - 08/25/2020 4:33 AM FREIGHT AGENT Broset Violence Assessment Entered On: 08/25/2020 5:10 EST Performed On: 08/25/2020 5:10 EST by Yajaira Magallon Rn Broset Violence Assessment Broset Violence Checklist of Symptoms : None Broset Violence Symptoms Subtotal : 0 Broset Violence Symptoms Indicator : Low risk (0) Yajaira Magallon Rn - 08/25/2020 5:10 EST Electronically signed by Sivan [facility] Conversion Electrical Systems Drafter Cerner at 02/04/2023 2:10 PM CDT documented in this encounter Plan of Treatment Not on file documented as of this encounter Visit Diagnoses Not on filedocumented in this encounter Care Teams Hospice Bereavement Coordinator Relationship Specialty Start Date End Date Jay Howell MD [address] [place] [phone] PCP - General Emergency Medicine 11/12/23 documented as of this encounter
--- OUTSIDE RECORDS SUMMARY | 2025-08-16 09:07 | XMS_ITS | Encounter Summary ---
Author Organization [employer] ([place], [place], [place], [place]) Address [address] [place] [address] Care Team Providers Care Rn Progressive Care Name Role Phone Jay Howell MD Primary Care Provider [phone] Encounter Details Date Type Department Care Team (Late st Contact Info) Description 03/18/2021 Transcribed Document [facility] [place] [address] [place] [address] ProviderJessie MD [address] [place] [address] Social History Tobacco Use Types Packs/Day Years [...] filedocumented in this encounter Care Teams Rn Progressive Care Relationship Specialty Start Date End Date Jay Howell MD [address] [place] [phone] PCP - General Emergency Medicine 11/12/23 documented as of this encounter
--- OUTSIDE RECORDS SUMMARY | 2025-08-16 09:07 | XMS_ITS | Encounter Summary ---
Author Organization [employer] ([place], [place], [place], [place]) Address [address] [place] [address] Care Team Providers Care Sheriffs Name Role Phone Jay Howell MD Primary Care Provider [phone] Encounter Details Date Type Department Care Team (Late st Contact Info) Description 03/18/2021 Transcribed Document [facility] Cardiology [address] [place], [place] [phone] Jorje Bení[place] [address] [place] [address] [address] [place] [address] Social History Tobacco Use Types Packs/Day Years [...] None Author: JORJE BENÍTEZ MD-CAR Basic Information Furniture Mover Driver: Dr. Adry Dumas Subjective NAD Health Status [...] Vitamins oral tablet 1 Tab, Oral, Daily [place] 7.5 mg-325 mg oral tablet 1 Tab, [...] 03/17/2021 04:45 Radiology Results (Last 48 hours) [id number] -- 03/17/2021 13:59 CR Hip Uni Comp [...] dictated by Dr. Charlette Herrera.Transcribed by Kitty Villarrael PA-C.I have personally viewed, interpreted and dictated [...] on filedocumented in this encounter Care Teams Sheriffs Relationship Specialty Start Date End Date Jay Howell MD [address] [place] [phone] PCP - General Emergency Medicine 11/12/23 documented as of this encounter
--- OUTSIDE RECORDS SUMMARY | 2025-08-16 09:07 | XMS_ITS | Encounter Summary ---
Author Organization [employer] ([place], [place], [place], [place]) Address [address] [place] [address] Care Team Providers Care Acidizer Water Well Name Role Phone Jay Howell MD Primary Care Provider [phone] Encounter Details Date Type Department Care Team (Late st Contact Info) Description 08/25/2020 Transcribed Document [facility] [place] [address] [place] [address] ProviderJessie MD [address] [place] [address] Social History Tobacco Use Types Packs/Day Years Used Date Smoking Tobacco: Never Assessed Comments Unknown Sex and Gender Information Value Date Recorded Sex Assigned at Not on file Legal Sex Female 7:30 PM CDT Gender Identity Not on file Sexual Orientation Not on file documented as of this encounter Miscellaneous Notes * Cerner Conversion Note - Historical ProviderMD - 08/25/2020 6:14 PM FOOT SETTER Admission History, Adult Entered On: 08/25/2020 18:21 [...] Ambulatory Legal Guardian : Spouse Support Person/Patient Clinical Laboratory Manager : Yes Support Person/Pt Rep Name : Willard Contact Password : Marvin Support Person/Pt Rep Contact Information : [phone] Want Family/Rep/Phys Notified of Admit : No [...] Obtained From : Patient Primary Language : Moroccan Preferred Communication Mode : Verbal Communication Barrier : None Industrial Fabric Cutter Needed : No ROMEO PADRON RN - [...] Level : 46 or > High Risk [place] Fall Interventions : Adequate lighting, Assistive devices [...] 2. (Last Updated: 08/06/2014 13:58:58 EDT by DAIVDA ISAAC RN) Home/Environment: Lives with Spouse. Living situation: Home/Independent. (Last Updated: 12/14/2014 22:42:39 EST by BIPIN HOFF RN) Height and Weight, Clinical Dosing Height Source : Stated Height Entry Format : Mart Height, Feet : 5 ft(Converted to: 152 cm, 60 Inch) Height, Inches : 3 Inch(Converted to: 0 ft 3 Inch, 7.62 cm) Clinical Height : 160.02 cm Weight Source : Bed scale Weight Entry Format : Mart Clinical Dosing Weight : 69.09 kg Weight, Pounds : 152 lb Body Surface Area (BSA) : 1.72 m2 Body Mass Index : 27 kg/m2 (HI) Range Body Weight : 52 kg ROMEO PADRON [...] ROMEO PADRON RN - 08/25/2020 18:14 EST [place] Suicide Severity Rating Scale (C-SSRS) CSSRS Past [...] 08/25/2020 18:14 EST Electronically signed by Sivan [facility] Conversion Social And Political Studies Professor Cerner at 02/04/2023 2:14 PM CDT documented in this encounter Plan of Treatment Not on file documented as of this encounter Visit Diagnoses Not on filedocumented in this encounter Care Teams Acidizer Water Well Relationship Specialty Start Date End Date Jay Howell MD [address] [place] [phone] PCP - General Emergency Medicine 11/12/23 documented as of this encounter
--- OUTSIDE RECORDS SUMMARY | 2025-08-16 09:07 | XMS_ITS | Encounter Summary ---
Author Organization [employer] ([place], [place], [place], [place]) Address [address] [place] [address] Care Team Providers Care Gunner'S Mate Name Role Phone Jay Howell MD Primary Care Provider [phone] Encounter Details Date Type Department Care Team (Late st Contact Info) Description 08/25/2020 Transcribed Document [facility] [place] [address] [place] [address] ProviderJessie MD [address] [place] [address] Social History Tobacco Use Types Packs/Day Years Used Date Smoking Tobacco: Never Assessed Comments Unknown Sex and Gender Information Value Date Recorded Sex Assigned at Not on file Legal Sex Female 7:30 PM CDT Gender Identity Not on file Sexual Orientation Not on file documented as of this encounter Miscellaneous Notes * Cerner Conversion Note - Jessie Yuen MD - 08/25/2020 9:27 AM ACCESS DEVELOPER Patient: SKYLER MONTOYA Age: 79 years Sex: [...] changes. Rx will follow, [place] PharmD,BCPS,BCCCP #[phone] Electronically signed by Sivan, [facility] Conversion Gas Pumping Station Helper Cerner at 02/04/2023 2:13 PM CDT documented in this encounter Plan of Treatment Not on file documented as of this encounter Visit Diagnoses Not on filedocumented in this encounter Care Teams Gunner'S Mate Relationship Specialty Start Date End Date Jay Howell MD [address] [place] [phone] PCP - General Emergency Medicine 11/12/23 documented as of this encounter
--- OUTSIDE RECORDS SUMMARY | 2025-08-16 09:07 | XMS_ITS | Encounter Summary ---
Author Organization [employer] ([place], [place], [place], [place]) Address [address] [place] [address] Care Team Providers Care Oracle Soa Architect Name Role Phone Jay Howell MD Primary Care Provider [phone] Encounter Details Date Type Department Care Team (Late st Contact Info) Description 08/26/2020 Transcribed Document [facility] [place] [address] [place] [address] ProviderJessie MD [address] [place] [address] Social History Tobacco Use Types Packs/Day Years Used Date Smoking Tobacco: Never Assessed Comments Unknown Sex and Gender Information Value Date Recorded Sex Assigned at Not on file Legal Sex Female 7:30 PM CDT Gender Identity Not on file Sexual Orientation Not on file documented as of this encounter Miscellaneous Notes * Cerner Conversion Note - Historical ProviderMD - 08/26/2020 10:39 AM SPD TECH UM Authorization Entered On: 08/26/2020 10:39 EST Performed On: 08/26/2020 10:39 EST by MARILYNN RAMÍREZ, RN-Utilization Review Primary Insurance Authorization Authorization and Policy Numbers : Insurance 1 Health Plan: MEDICARE Policy Number: [id number] Authorization Number: Insurance 2 Health Plan: AARP N Policy Number: [id number] Authorization Number: Insurance Primary Name : MEDICARE Policy Number: [id number] Authorized Service Begin Date-Primary : 08/25/2020 EST Historical Authorization Comments-Primary : No Authorization Comments Found MARILYNN RAMÍREZ, RN-Utilization Review - 08/26/2020 10:39 EST Electronically signed by Sivan [facility] Conversion Waiter/Waitress Cerner at 02/04/2023 2:22 PM CDT documented in this encounter Plan of Treatment Not on file documented as of this encounter Visit Diagnoses Not on filedocumented in this encounter Care Teams Oracle Soa Architect Relationship Specialty Start Date End Date Jay Howell MD [address] [place] [phone] PCP - General Emergency Medicine 11/12/23 documented as of this encounter
--- OUTSIDE RECORDS SUMMARY | 2025-08-16 09:07 | XMS_ITS | Encounter Summary ---
Author Organization [employer] ([place], [place], [place], [place]) Address [address] [place] [address] Care Team Providers Care Syrup Mixer Assistant Name Role Phone Jay Howell MD Primary Care Provider [phone] Encounter Details Date Type Department Care Team (Late st Contact Info) Description 08/25/2020 Transcribed Document [facility] [place] Family Medicine [address] [place] [address] ProviderJessie MD [address] [place] [address] Social History Tobacco Use Types Packs/Day Years Used Date Smoking Tobacco: Never Assessed Comments Unknown Sex and Gender Information Value Date Recorded Sex Assigned at Not on file Legal Sex Female 7:30 PM CDT Gender Identity Not on file Sexual Orientation Not on file documented as of this encounter Miscellaneous Notes * Cerner Conversion Note - Jessie Yuen MD - 08/25/2020 7:28 AM SUPERVISOR FERTILIZER WOCN Inpatient Documentation Entered On: 08/25/2020 15:46 [...] 08/25/2020 15:46 EST Electronically signed by Sivan, [facility] Conversion Hogshead Cooper Cerner at 02/04/2023 2:08 PM CDT documented in this encounter Plan of Treatment Not on file documented as of this encounter Visit Diagnoses Not on filedocumented in this encounter Care Teams Syrup Mixer Assistant Relationship Specialty Start Date End Date Jay Howell MD [address] [place] [phone] PCP - General Emergency Medicine 11/12/23 documented as of this encounter
--- OUTSIDE RECORDS SUMMARY | 2025-08-16 09:07 | XMS_ITS | Encounter Summary ---
Author Organization [employer] ([place], [place], [place], [place]) Address [address] [place] [address] Care Team Providers Care Adult Family Home Program Manager Name Role Phone Jay Howell MD Primary Care Provider [phone] Encounter Details Date Type Department Care Team (Late st Contact Info) Description 03/17/2021 Transcribed Document [facility] [place] Family Medicine [facility] [place] [address] ProviderJessie MD [address] [place] [id number] Social History Tobacco Use Types Packs/Day Years [...] on filedocumented in this encounter Care Teams Adult Family Home Program Manager Relationship Specialty Start Date End Date Jay Howell MD [address] [place] [phone] PCP - General Emergency Medicine 11/12/23 documented as of this encounter
--- OUTSIDE RECORDS SUMMARY | 2025-08-16 09:07 | XMS_ITS | Encounter Summary ---
Author Organization [employer] ([place], [place], [place], [place]) Address [address] [place] [address] Care Team Providers Care Security Shift Manager Name Role Phone Jay Howell MD Primary Care Provider [phone] Encounter Details Date Type Department Care Team (Late st Contact Info) Description 03/19/2021 Transcribed Document [facility] [place] [facility] [place] [address] ProviderJessie MD [address] [place], [place] [address] Social History Tobacco Use Types Packs/Day Years [...] these instructions at home: Medicines ??? Take mqge-eqb-eemwepu and prescription medicines only as told by [...] provider. Document Revised: 01/25/2020 Document Reviewed: 08/22/2019 [employer] Patient Education ? 2019 [employer] Orthopedics Cast or Splint Care, Adult [...] activities are safe for you. ??? Take vodb-jzf-qvwctbs and prescription medicines only as told by [...] provider. Document Revised: 07/31/2018 Document Reviewed: 03/26/2017 [employer] Patient Education ? 2020 [employer]. documented in this encounter Plan of Treatment Not on file documented as of this encounter Visit Diagnoses Not on filedocumented in this encounter Care Teams Security Shift Manager Relationship Specialty Start Date End Date Jay Howell MD [address] [place] [phone] PCP - General Emergency Medicine 11/12/23 documented as of this encounter
--- OUTSIDE RECORDS SUMMARY | 2025-08-16 09:07 | XMS_ITS | Encounter Summary ---
Author Organization [employer] ([place], [place], [place], [place]) Address [address] [place] [address] Care Team Providers Care Terminal Supervisor Name Role Phone Jay Howell MD Primary Care Provider [phone] Encounter Details Date Type Department Care Team (Late st Contact Info) Description 08/25/2020 Transcribed Document [facility] [place] Family Medicine [address] [place] [address] ProviderJessie MD [address] [place] [address] Social History Tobacco Use Types Packs/Day Years Used Date Smoking Tobacco: Never Assessed Comments Unknown Sex and Gender Information Value Date Recorded Sex Assigned at Not on file Legal Sex Female 7:30 PM CDT Gender Identity Not on file Sexual Orientation Not on file documented as of this encounter Miscellaneous Notes * Cerner Conversion Note - Jessie Yuen MD - 08/25/2020 7:20 AM CREW MANAGER Patient: SKYLER MONTOYA Age: 79 years [...] multiple stent placements. The [facility] after recent fall with hematoma required [...] with her . She has a strong church treasure. She alex like to stay Full [...] on filedocumented in this encounter Care Teams Terminal Supervisor Relationship Specialty Start Date End Date Jay Howell MD [address] [place] [phone] PCP - General Emergency Medicine 11/12/23 documented as of this encounter
--- OUTSIDE RECORDS SUMMARY | 2025-08-16 09:07 | XMS_ITS | Encounter Summary ---
Author Organization [employer] ([place], [place], [place], [place]) Address [address] [place] [address] Care Team Providers Care Router Setter Name Role Phone Jay Howell MD Primary Care Provider [phone] Encounter Details Date Type Department Care Team (Late st Contact Info) Description 08/26/2020 Transcribed Document [facility] [place] Family Medicine [address] [place] [address] ProviderJessie MD [address] [place] [address] Social History Tobacco Use Types Packs/Day Years Used Date Smoking Tobacco: Never Assessed Comments Unknown Sex and Gender Information Value Date Recorded Sex Assigned at Not on file Legal Sex Female 7:30 PM CDT Gender Identity Not on file Sexual Orientation Not on file documented as of this encounter Miscellaneous Notes * Cerner Conversion Note - Historical ProviderMD - 08/26/2020 9:06 AM RETAIL SALES CLERK Patient: SKYLER MONTOYA Age: 79 years Sex: Female : 1940 Associated Diagnoses: None Author: Cheng Jennings, Tile Trimmer Cert 79yo female with Left lower extremity [...] PharmD/MPH Candidate Kell OlsonD Electronically signed by [facility] Conversion Contract Administrator Cerner at 02/04/2023 2:17 PM CDT documented in this encounter Plan of Treatment Not on file documented as of this encounter Visit Diagnoses Not on filedocumented in this encounter Care Teams Router Setter Relationship Specialty Start Date End Date Jay Howell MD [address] [place] [phone] PCP - General Emergency Medicine 11/12/23 documented as of this encounter
--- OUTSIDE RECORDS SUMMARY | 2025-08-16 09:07 | XMS_ITS | Encounter Summary ---
Author Organization [employer] ([place], [place], [place], [place]) Address [address] [place] [address] Care Team Providers Care Finisher Wallboard And Plasterboard Name Role Phone Jay Howell MD Primary Care Provider [phone] Encounter Details Date Type Department Care Team (Late st Contact Info) Description 08/26/2020 Transcribed Document [facility] [place] Family Medicine [address] [place] [address] ProviderJessie MD [address] [place] [address] Social History Tobacco Use Types Packs/Day Years Used Date Smoking Tobacco: Never Assessed Comments Unknown Sex and Gender Information Value Date Recorded Sex Assigned at Not on file Legal Sex Female 7:30 PM CDT Gender Identity Not on file Sexual Orientation Not on file documented as of this encounter Miscellaneous Notes * Cerner Conversion Note - Historical ProviderMD - 08/26/2020 2:16 PM BEHAVIOR SUPPORT SPECIALIST Initial Discharge Planning Entered On: 08/26/2020 14:19 EST Performed On: 08/26/2020 14:16 EST by KAVITA PELLETIER RN-Animal Treatment Investigator Initial Assessment I Previously Documented Living Environment [...] Listed? : Yes Medical Durable Power of Custom Motorcycle Painter Name : No KAVITA PELLETIER RN-Animal Treatment Investigator - 08/26/2020 14:16 EST Initial Assessment II Sensory and Motor Deficits : Weakness Current Home Treatments and Equipment : CPAP, Walker KAVITA PELLETIER RN-Animal Treatment Investigator - 08/26/2020 14:16 EST Narrative Note Narrative [...] upon POC. CM will follow. KAVITA PELLETIER RN-Animal Treatment Investigator - 08/26/2020 14:16 EST documented in this encounter Plan of Treatment Not on file documented as of this encounter Visit Diagnoses Not on filedocumented in this encounter Care Teams Finisher Wallboard And Plasterboard Relationship Specialty Start Date End Date Jay Howell MD [address] [place] [phone] PCP - General Emergency Medicine 11/12/23 documented as of this encounter
--- OUTSIDE RECORDS SUMMARY | 2025-08-16 09:07 | XMS_ITS | Encounter Summary ---
Author Organization [employer] ([place], [place], [place], [place]) Address [address] [place] [address] Care Team Providers Care Highballer Name Role Phone Jay Howell MD Primary Care Provider [phone] Encounter Details Date Type Department Care Team (Late st Contact Info) Description 03/19/2021 Transcribed Document [facility] [place] [address] ProviderJessie MD [address] [place], [place] [address] Social History Tobacco Use Types Packs/Day Years [...] on filedocumented in this encounter Care Teams Highballer Relationship Specialty Start Date End Date Jay Howell MD [address] [place] [phone] PCP - General Emergency Medicine 11/12/23 documented as of this encounter
--- OUTSIDE RECORDS SUMMARY | 2025-08-16 09:07 | XMS_ITS | Encounter Summary ---
Author Organization [employer] ([place], [place], [place], [place]) Address [address] [place] [address] Care Team Providers Care Back Office Medical Assistant Name Role Phone Jay Howell MD Primary Care Provider [phone] Encounter Details Date Type Department Care Team (Late st Contact Info) Description 03/17/2021 Transcribed Document [facility] [place] Family Medicine [facility] [place] [address] ProviderJessie MD [address] [place] [address] Social History Tobacco Use Types Packs/Day Years [...] 03/17/2021 10:01 EDT by Krystina Giang V Accounting Manager Controller Felipe Initial Assessment I Legal Guardian : No Krystina Giang V Accounting Manager Controller Felipe - 03/17/2021 14:24 EDT Previously Documented Living Environment : No qualifying data available. Living Situation : Home Patient Lives With : Spouse Employment/Vocation : retired Emergency Contact #1 : Leonardo Emergency Contact #1 Emergency Contact #1 Relationship : Son Emergency Contact #2 : Christian Emergency Contact #2 Emergency Contact #2 Relationship : Son Rahat Social Kayla Khoury [facility] - 03/17/2021 10:01 EDT Enter Doctors Name : Krystina Welsh Social Worker [facility] 03/17/2021 14:24 EDT Does Patient have PCP Listed? : Yes Medical Durable Power of Scraper Burrer Name : No Krystina Giang Social Worker [facility] - 03/17/2021 10:01 EDT Initial Assessment II Sensory and Motor Deficits : Weakness Krystina Giang Social Worker [facility] 03/17/2021 10:01 EDT Current Home Treatments and Equipment : Bedside commode, CPAP, Shower chair, Walker, Wheelchair Krystina Giang Social Worker [facility] 03/17/2021 14:24 EDT Discharge Needs I Anticipated Discharge Date : 03/19/2021 EDT Anticipated Discharge To, CM : Home with home health Krystina Giang Social Worker [facility] - 03/17/2021 14:24 EDT Current Home Treatment/Equipment : Current Home Treatment/Equipment No qualifying data available. Documentation Status Complete : Yes Krystina Giang Social Worker [facility] 03/17/2021 10:01 EDT Discharge Needs II Professional Skilled Services : Professional Skilled Services No qualifying data available. Needs Assistance with Transportation : No Discharge Options Discussed with Patient : Discharge transportation, DME, Home Health, Short term rehabilitation Krystina Giang Social Worker [facility] 03/17/2021 10:01 EDT Narrative Note Narrative Note : HD#1, ELOS-not reported, RRS-Moderate, Boost- 80 yo female admitted for syncopal episide. She fell and hit her head and suffered a right wrist fracture. Cardiology, Neurology, Orthopedics consults noted. She lives with her spouse. Independent with ADLs prior to admission. DME-walker, shower chair, BSC, cpap thru [facility] in [place]. No home 02. HHS in the past out of [place]. Denies rehab stays. DCP-Home with spouse. Possible HHPT/OT CM to follow Krystina Giang Social Worker [facility] - 03/17/2021 14:24 EDT Electronically signed by Sivan [facility] Conversion Tester [employer]ocket Engine Cerner at 02/04/2023 2:01 PM CDT documented in this encounter Plan of Treatment Not on file documented as of this encounter Visit Diagnoses Not on filedocumented in this encounter Care Teams Back Office Medical Assistant Relationship Specialty Start Date End Date Jay Howell MD [address] [place] [phone] PCP - General Emergency Medicine 11/12/23 documented as of this encounter
--- OUTSIDE RECORDS SUMMARY | 2025-08-16 09:08 | XMS_ITS | Encounter Summary ---
Author Organization [employer] ([place], [place], [place], [place]) Address [address] [place] [address] Care Team Providers Care Head Of Maintenance Name Role Phone Jay Howell MD Primary Care Provider [phone] Encounter Details Date Type Department Care Team (Late st Contact Info) Description 03/18/2021 Transcribed Document [facility] [place] [address] ProviderJessie MD [address] [place] [address] Social History Tobacco Use Types Packs/Day Years [...] Insurance 1 Health Plan: MEDICARE Policy Number: [id number] Authorization Number: Insurance 2 Health Plan: AARP N Policy Number: [id number] Authorization Number: Insurance Primary Name : MEDICARE Policy Number: [id number] Authorized Service Begin Date-Primary : 03/16/2021 EDT Historical Authorization Comments-Primary : No Authorization Comments Found MARILYNN RAMÍREZ, RN-Utilization Review - 03/18/2021 8:56 EDT Electronically signed by Sivan [facility] Conversion Jawbone Puller Cerner at 02/04/2023 2:20 PM CDT documented in this encounter Plan of Treatment Not on file documented as of this encounter Visit Diagnoses Not on filedocumented in this encounter Care Teams Head Of Maintenance Relationship Specialty Start Date End Date Jay Howell MD [address] [place] [phone] PCP - General Emergency Medicine 11/12/23 documented as of this encounter
--- OUTSIDE RECORDS SUMMARY | 2025-08-16 09:08 | XMS_ITS | Encounter Summary ---
Author Organization [email or web address] ([place], [place], [place], [place]) Address [address] [place] [address] Care Team Providers Care Gas Turbine Mechanic Name Role Phone Jay Howell MD Primary Care Provider [phone] Encounter Details Date Type Department Care Team (Late st Contact Info) Description 03/18/2021 Transcribed Document [facility] [place] [facility] [place] [address] ProviderJessie MD [address] [place] [id number] Social History Tobacco Use Types Packs/Day Years [...] of the form. Electronically signed by Sivan, [facility] Conversion Customer Servicer Cerner at 02/04/2023 2:20 PM CDT documented in this encounter Plan of Treatment Not on file documented as of this encounter Visit Diagnoses Not on filedocumented in this encounter Care Teams Gas Turbine Mechanic Relationship Specialty Start Date End Date Jay Howell MD [address] [place] [phone] PCP - General Emergency Medicine 11/12/23 documented as of this encounter
--- OUTSIDE RECORDS SUMMARY | 2025-08-16 09:08 | XMS_ITS | Encounter Summary ---
Author Organization [employer] ([place], [place], [place], [place]) Address [address] [place] [address] Care Team Providers Care Clinical Application Manager Name Role Phone Jay Howell MD Primary Care Provider [phone] Encounter Details Date Type Department Care Team (Late st Contact Info) Description 03/18/[address] [facility] [place] [facility] [place] [address] ProviderJessie MD [address] [place], [place] [address] Social History Tobacco Use Types Packs/Day Years [...] Lymph # 1.66 x10(3)/uL 03/18/2021 05:19 EDT [place] % 11.4 % (High) 03/18/2021 05:19 EDT [place] # 0.75 K/uL 03/18/2021 05:19 EDT Eos [...] VLDL Calculation 19.2 mg/dL 03/18/2021 05:19 EDT Electronically signed by Gayle Finnegan Conversion Grievance And Appeals Specialist Cerner at 02/04/2023 2:15 PM CDT documented in this encounter Plan of Treatment Not on file documented as of this encounter Visit Diagnoses Not on filedocumented in this encounter Care Teams Clinical Application Manager Relationship Specialty Start Date End Date Jay Howell MD [address] [place] [phone] PCP - General Emergency Medicine 11/12/23 documented as of this encounter
--- OUTSIDE RECORDS SUMMARY | 2025-08-16 09:08 | XMS_ITS | Encounter Summary ---
Author Organization [employer] ([place], [place], [place], [place]) Address [address] [place] [address] Care Team Providers Care Early Intervention School Psychologist Name Role Phone Jay Howell MD Primary Care Provider [phone] Encounter Details Date Type Department Care Team (Late st Contact Info) Description 08/26/2020 Transcribed Document [facility] [place] [address] [place] [address] ProviderJessie MD [address] [place] [address] Social History Tobacco Use Types Packs/Day Years Used Date Smoking Tobacco: Never Assessed Comments Unknown Sex and Gender Information Value Date Recorded Sex Assigned at Not on file Legal Sex Female 7:30 PM CDT Gender Identity Not on file Sexual Orientation Not on file documented as of this encounter Miscellaneous Notes * Cerner Conversion Note - Historical ProviderMD - 08/26/2020 12:15 PM STRAP BUCKLER Peripheral Nerve Block Entered On: 08/26/2020 12:27 [...] - 08/26/2020 12:25 EST Electronically signed by [facility] Conversion Specimen Accessioner Cerner at 02/04/2023 2:08 PM CDT documented in this encounter Plan of Treatment Not on file documented as of this encounter Visit Diagnoses Not on filedocumented in this encounter Care Teams Early Intervention School Psychologist Relationship Specialty Start Date End Date Jay Howell MD [address] [place] [phone] PCP - General Emergency Medicine 11/12/23 documented as of this encounter
--- OUTSIDE RECORDS SUMMARY | 2025-08-16 09:08 | XMS_ITS | Encounter Summary ---
Author Organization [employer] ([place], [place], [place], [place]) Address [address] [place] [address] Care Team Providers Care Chain Maker Name Role Phone Jay Howell MD Primary Care Provider [phone] Encounter Details Date Type Department Care Team (Late st Contact Info) Description 08/26/2020 Transcribed Document [facility] [place] [address] [place] [address] ProviderJessie MD [address] [place] [address] Social History Tobacco Use Types Packs/Day Years Used Date Smoking Tobacco: Never Assessed Comments Unknown Sex and Gender Information Value Date Recorded Sex Assigned at Not on file Legal Sex Female 7:30 PM CDT Gender Identity Not on file Sexual Orientation Not on file documented as of this encounter Miscellaneous Notes * Cerner Conversion Note - Historical ProviderMD - 08/26/2020 2:23 PM MANAGER COMMUNITY RELATIONS Patient: SKYLER MONTOYA Age: 79 Years Sex: [...] LEFT PT occlusion - distal *Operation RIGHT SUBSTATION OPERATOR HELPER access - ultrasound guided Aortogram with LEFT lower extremity run-off LEFT PT angioplasty (2.5-5r157cb Nanocross) LEFT peroneal angioplasty (2.5-5r612km Nanocross) RIGHT SUBSTATION OPERATOR HELPER closure (Angioseal) LEFT leg debridement *Surgeon Elie Verde MD Anesthesia MAC *Estimated Blood Loss Minimal *Findings By aortogram, the distal abdominal aorta is patent. On the RIGHT, the common iliac (NILAY), internal iliac (IIA) and external iliac (EIA) arteries are patent. Beyond this point, the vasculature was not specifically interrogated. On the LEFT, the NILAY, IIA and EIA are patent. The common femoral (SUBSTATION OPERATOR HELPER) artery is patent dividing into the profunda [...] The patient was placed supine on the geophysical laboratory chief table and the BILATERAL groins and LEFT leg were prepped and draped in usual sterile fashion. The patient was identified as SKYLER MONTOYA by the entire procedural team as per time out protocol. Next, local anesthetic was infiltrated into the groin region. The RIGHT SUBSTATION OPERATOR HELPER was accessed in retrograde fashion under ultrasound guidance using micropuncture technique and a 5Fr sheath was installed. Next, an Omni flush catheter was advanced into the infrarenal aorta and an aortogram was obtained; see above. Next, the catheter and 035/260 glide advantage wire (GAW) were directed up-and-over into the LEFT SUBSTATION OPERATOR HELPER and additional run-off views were obtained in station; see above. Next, the sheath was upsized to a 6Fr/45cm destination sheath which was positioned in the LEFT SUBSTATION OPERATOR HELPER. The patient was then systemically heparinized. Next, [...] 13:48:53) Electronically signed by Sivan [facility] Conversion Extension Course Coordinator Cerner at 02/04/2023 2:09 PM CDT documented in this encounter Plan of Treatment Not on file documented as of this encounter Visit Diagnoses Not on filedocumented in this encounter Care Teams Chain Maker Relationship Specialty Start Date End Date Jay Howell MD [address] [place] [phone] PCP - General Emergency Medicine 11/12/23 documented as of this encounter
--- OUTSIDE RECORDS SUMMARY | 2025-08-16 09:08 | XMS_ITS | Encounter Summary ---
Author Organization [employer] ([place], [place], [place], [place]) Address [address] [place] [address] Care Team Providers Care Chief Sales Officer Name Role Phone Jay Howell MD Primary Care Provider [phone] Encounter Details Date Type Department Care Team (Late st Contact Info) Description 08/26/2020 Transcribed Document [facility] [place] Family Medicine [address] [place] [address] ProviderJessie MD [address] [place] [address] Social History Tobacco Use Types Packs/Day Years Used Date Smoking Tobacco: Never Assessed Comments Unknown Sex and Gender Information Value Date Recorded Sex Assigned at Not on file Legal Sex Female 7:30 PM CDT Gender Identity Not on file Sexual Orientation Not on file documented as of this encounter Miscellaneous Notes * Cerner Conversion Note - Historical ProviderMD - 08/26/2020 2:49 PM PRESIDENT AND CHIEF OPERATING OFFICER Patient: SKYLER MONTOYA Age: 79 years [...] filedocumented in this encounter Care Teams Chief Sales Officer Relationship Specialty Start Date End Date Jay Howell MD [address] [place] [phone] PCP - General Emergency Medicine 11/12/23 documented as of this encounter
--- OUTSIDE RECORDS SUMMARY | 2025-08-16 09:08 | XMS_ITS | Encounter Summary ---
Author Organization [employer] ([place], [place], [place], [place]) Address [address] [place] [address] Care Team Providers Care Office Machine Servicer Apprentice Name Role Phone Jay Howell MD Primary Care Provider [phone] Encounter Details Date Type Department Care Team (Late st Contact Info) Description 08/26/2020 Transcribed Document [facility] [place] Family Medicine [address] [place] [address] ProviderJessie MD [address] [place] [address] Social History Tobacco Use Types Packs/Day Years Used Date Smoking Tobacco: Never Assessed Comments Unknown Sex and Gender Information Value Date Recorded Sex Assigned at Not on file Legal Sex Female 7:30 PM CDT Gender Identity Not on file Sexual Orientation Not on file documented as of this encounter Miscellaneous Notes * Cerner Conversion Note - Jessie Yuen MD - 08/26/2020 8:24 AM SOLAR THERMAL INSTALLER Patient: SKYLER MONTOYA Age: 79 years [...] Level 8.4 mg/dL 08/26/2020 04:23 MICRO: ACC: [id number] ORDER: Culture Wound and Stain DATE: 08/25/2020 05:00 SOURCE: Wound SITE: Leg Lower L Reports Pre 08/26/2020 06:23 No growth GS 08/25/2020 07:26 No organisms seen. Few White Blood Cells Rare epithelial cells == ACC: [id number] ORDER: Culture Blood DATE: 08/25/2020 05:01 SOURCE: Blood SITE: Reports Pre 08/26/2020 06:01 No growth at 1 day. Pre 08/25/2020 23:02 Culture less than 24 Hrs old == ACC: [id number] ORDER: Culture Blood DATE: 08/25/2020 05:01 SOURCE: Blood SITE: Reports Pre 08/26/2020 06:01 No growth at 1 day. Pre 08/25/2020 23:02 Culture less than 24 Hrs old == Radiology Results (Last 48 hours) [id number] -- 08/25/2020 05:53 CR Chest 1 Vw [...] above. Discussed with them. Electronically signed by [facility] Conversion Perfume Compounder Cerner at 02/04/2023 2:09 PM CDT documented in this encounter Plan of Treatment Not on file documented as of this encounter Visit Diagnoses Not on filedocumented in this encounter Care Teams Office Machine Servicer Apprentice Relationship Specialty Start Date End Date Jay Howell MD [address] [place] [phone] PCP - General Emergency Medicine 11/12/23 documented as of this encounter
--- OUTSIDE RECORDS SUMMARY | 2025-08-16 09:08 | XMS_ITS | Encounter Summary ---
Author Organization [employer] ([place], [place], [place], [place]) Address [address] [place] [address] Care Team Providers Care Motion Picture Set Worker Name Role Phone Jay Howell MD Primary Care Provider [phone] Encounter Details Date Type Department Care Team (Late st Contact Info) Description 03/18/2021 Transcribed Document [facility] [place] [facility] [place] [address] ProviderJessie MD [address] [place], [place] [phone] Social History Tobacco Use Types Packs/Day Years [...] on filedocumented in this encounter Care Teams Motion Picture Set Worker Relationship Specialty Start Date End Date Jay Howell MD [address] [place] [phone] PCP - General Emergency Medicine 11/12/23 documented as of this encounter
--- OUTSIDE RECORDS SUMMARY | 2025-08-16 09:08 | XMS_ITS | Encounter Summary ---
Author Organization [employer] ([place], [place], [place], [place]) Address [address] [place] [address] Care Team Providers Care Mannequin Decorator Name Role Phone Jay Howell MD Primary Care Provider [phone] Encounter Details Date Type Department Care Team (Late st Contact Info) Description 08/26/2020 Transcribed Document [facility] [place] Family Medicine [address] [place] [address] ProviderJessie MD [address] [place], [place] [address] Social History Tobacco Use Types Packs/Day Years Used Date Smoking Tobacco: Never Assessed Comments Unknown Sex and Gender Information Value Date Recorded Sex Assigned at Not on file Legal Sex Female 7:30 PM CDT Gender Identity Not on file Sexual Orientation Not on file documented as of this encounter Miscellaneous Notes * Cerner Conversion Note - Historical ProviderMD - 08/26/2020 2:00 AM ANIMAL CARE PROVIDER [employer] Lead Details Entered On: 08/26/2020 2:00 EST Performed On: 08/26/2020 2:00 EST by Kervin Kulkarni RN Order Details Isolation Precautions Order Detail : Standard Precautions Order Detail : N/A IV Order Detail : 1 Oxygen Order Detail : 0 Lift/Transfer : Independent Room Service : Not Appropriate Patient Needs Meds Crushed/Liquid : No Kervin Kulkarni RN - 08/26/2020 1:56 EST Electronically signed by Sivan [facility] Conversion Geophysical Manager Cerner at 02/04/2023 2:10 PM CDT documented in this encounter Plan of Treatment Not on file documented as of this encounter Visit Diagnoses Not on filedocumented in this encounter Care Teams Mannequin Decorator Relationship Specialty Start Date End Date Jay Howell MD [address] [place] [phone] PCP - General Emergency Medicine 11/12/23 documented as of this encounter
--- OUTSIDE RECORDS SUMMARY | 2025-08-16 09:08 | XMS_ITS | Encounter Summary ---
Author Organization [employer] ([place], [place], [place], [place]) Address [address] [place] [address] Care Team Providers Care Prep Cook Name Role Phone Jay Howell MD Primary Care Provider [phone] Encounter Details Date Type Department Care Team (Late st Contact Info) Description 03/18/2021 Transcribed Document [facility] [place] [facility] [place] [address] ProviderJessie MD [address] [place] [phone] Social History Tobacco Use Types Packs/Day Years [...] 03/18/2021 17:56 EDT Electronically signed by Sivan [facility] Conversion Health Information Management Director Cerner at 02/04/2023 2:21 PM CDT documented in this encounter Plan of Treatment Not on file documented as of this encounter Visit Diagnoses Not on filedocumented in this encounter Care Teams Prep Cook Relationship Specialty Start Date End Date Jay Howell MD [address] [place] [phone] PCP - General Emergency Medicine 11/12/23 documented as of this encounter
--- OUTSIDE RECORDS SUMMARY | 2025-08-16 09:08 | XMS_ITS | Encounter Summary ---
Author Organization [employer] ([place], [place], [place], [place]) Address [address] [place] [address] Care Team Providers Care Optical Store Manager Name Role Phone Jay Howell MD Primary Care Provider [phone] Encounter Details Date Type Department Care Team (Late st Contact Info) Description 03/18/2021 Transcribed Document [facility] [place] [facility] [address] ProviderJessie MD [address] [place], [place] [address] Social History Tobacco Use Types Packs/Day Years Used Date Smoking Tobacco: Never Assessed Comments Unknown Sex and Gender Information Value Date Recorded Sex Assigned at Not on file Legal Sex Female 7:30 PM CDT Gender Identity Not on file Sexual Orientation Not on file documented as of this encounter Miscellaneous Notes * Cerner Conversion Note - Jessie ProviderMD - 03/18/2021 2:00 AM CDT Sports Book Server Details Entered On: 03/18/2021 7:00 EDT Performed [...] 03/18/2021 7:00 EDT Electronically signed by Sivan [facility] Conversion Telephone Supervisor Cerner at 02/04/2023 2:06 PM CDT documented in this encounter Plan of Treatment Not on file documented as of this encounter Visit Diagnoses Not on filedocumented in this encounter Care Teams Optical Store Manager Relationship Specialty Start Date End Date Jay Howell MD [address] [place] [phone] PCP - General Emergency Medicine 11/12/23 documented as of this encounter
--- OUTSIDE RECORDS SUMMARY | 2025-08-16 09:08 | XMS_ITS | Encounter Summary ---
Author Organization [employer] ([place], [place], [place], [place]) Address [address] [place] [address] Care Team Providers Care Senior Treasury Consultant Name Role Phone Jay Howell MD Primary Care Provider [phone] Encounter Details Date Type Department Care Team (Late st Contact Info) Description 08/26/2020 Transcribed Document [place] Family Medicine [address] [place] [address] ProviderJessie MD [address] [place], [place] [phone] Social History Tobacco Use Types Packs/Day Years Used Date Smoking Tobacco: Never Assessed Comments Unknown Sex and Gender Information Value Date Recorded Sex Assigned at Not on file Legal Sex Female 7:30 PM CDT Gender Identity Not on file Sexual Orientation Not on file documented as of this encounter Miscellaneous Notes * Cerner Conversion Note - Historical ProviderMD - 08/26/2020 1:15 PM CHILDREN LIBRARIAN [facility] Main OR IntraOp Summary Primary Physician: KAELA HEBERT MD Finalized Date/Time: 08/28/20 09:26:05 Pt. Name: SKYLER MONOTYAO.B./Sex: 1940 Female Med Rec #: [id number] Physician: BETH DAVALOS MD-INT Financial #: [id number] Pt. Type: I Room/Bed: [facility]/ Admit/Disch: 08/25/20 05:53:00 - Institution: [facility] IntraOp Case Attendance Entry 1 Entry 2 Entry 3 Case Attendee KAELA HEBERT MD GRAFF, WAYNE B, MD-GABY INIGUEZ CRNA Role Performed Surgeon/Proceduralist, Anesthesiologist of JUNIOR PROGRAMMER ANALYST/Nurse Educational Aide First Record Time In 08/26/20 13:00:00 08/26/20 [...] Medrano, Saray Linton ST Role Performed Student Autistic Teacher, First Scrub, First Time In 08/26/20 13:00:00 [...] OTHER, ATTENDEE #3 Role Performed Scrub, First Laborer Road Laborer Road Time In 08/26/20 13:00:00 08/26/20 13:00:00 08/26/20 [...] 14:32:23 Entry 10 Case Attendee Jos Ledezma, Hr Advisor Role Performed Scrub, First Time In 08/26/20 13:50:00 Time Out 08/26/20 14:23:00 Procedure Wound Debridement Lower Extremity(Left), Aortogram Abdominal with Runoff(Left), Angioplasty Percutaneous Transluminal(Left) Other Attendee Superficial Wound Closed By: Last Modified By: Radha Medrano RN 08/26/20 14:32:23 [facility] IntraOp Case Attendance Audit 08/26/20 14:32:23 Pairer Inspector: AMAN Modifier: AMAN 1 <+> Time Out [...] with Runoff(Left), Angioplasty Percutaneous Transluminal(Left) 08/26/20 13:55:12 Pairer Inspector: EANAPIER Modifier: EANAPIER 6 <+> Time Out 6 <*> Procedure Wound Debridement Lower Extremity(Left), Aortogram Abdominal with Runoff(Left), Angioplasty Percutaneous Transluminal(Left) 7 <+> Time Out 7 <*> Procedure Wound Debridement Lower Extremity(Left), Aortogram Abdominal with Runoff(Left), Angioplasty Percutaneous Transluminal(Left) <+> 10 Case Attendee <+> 10 Role Performed <+> 10 Time In <+> 10 Procedure 08/26/20 13:49:11 Pairer Inspector: EANAPIER Modifier: EANAPIER 1 <*> Procedure Wound [...] Extremity(Left), Aortogram Abdominal with Runoff(Left) 08/26/20 13:47:56 Pairer Inspector: EANAPIER Modifier: EANAPIER 1 <*> Procedure Wound [...] Procedure Wound Debridement Lower Extremity(Left) 08/26/20 13:38:05 Pairer Inspector: EANAPIER Modifier: EANAPIER <+> 1 Time In [...] 9 <*> Procedure Wound Debridement Lower Extremity(Left) [facility] IntraOp Case Times Entry 1 Patient In Room Time 08/26/20 13:00:00 Out Room Time 08/26/20 14:23:00 Anesthesia Start Time 08/26/20 13:00:00 Stop Time 08/26/20 14:23:00 Surgery / Procedure Times Start Time 08/26/20 13:15:00 Stop Time 08/26/20 14:10:00 Last Modified By: Radha Medrano RN 08/26/20 14:22:56 [facility] IntraOp Case Times Audit 08/26/20 14:22:56 Pairer Inspector: EANAPIER Modifier: EANAPIER <+> 1 Out Room Time <+> 1 Stop Time 08/26/20 14:14:55 Pairer Inspector: EANAPIER Modifier: EANAPIER <+> 1 Stop Time [facility] IntraOp Cautery Entry 1 ESU Identification Cautery Type Monopolar ESU ID Number [id number] ID Type Hospital Number Cautery Settings Cut Setting 30 Coag Setting 30 ESU Grounding Pad Ground Pad Type Adult Grounding Pad Site Right Upper Abdomen Grounding Pad Radha Medrano RN Applied By Grounding Pad Site Warm, dry and intact Skin Condition Before Cautery Grounding Pad Site Unchanged Skin Condition After Cautery Last Modified By: Radha Medrano RN 08/26/20 13:46:51 [facility] IntraOp Communication Entry 1 Communication To Other Comment [facility] REPORT Communication By Radha Medrano RN Date and Time 08/26/20 14:17:00 Last Modified By: Radha Medrano RN 08/26/20 14:16:35 [facility] IntraOp Counts Verification Entry 1 Procedure Wound Debridement Lower Extremity(Left), Aortogram Abdominal with Runoff(Left), Angioplasty Percutaneous Transluminal(Left) Count Info Count Type Sponge, Sharps, Miscellaneous Counts Verification Baseline/pre-procedure Sequence Count Results Not Applicable Counts Performed By Count Performed By LUNA RIGGINS (Scrub) Count Performed By Radha Medrano RN (RN) Last Modified By: Radha Medrano RN 08/26/20 13:49:13 [facility] IntraOp Counts Verification Audit 08/26/20 13:49:13 Pairer Inspector: EANAPIER Modifier: EANAPIER 1 <*> Procedure Wound Debridement Lower Extremity(Left), Aortogram Abdominal with Runoff(Left) 08/26/20 13:47:59 Pairer Inspector: EANAPIER Modifier: EANAPIER 1 <*> Procedure Wound Debridement Lower Extremity(Left) [facility] IntraOp Counts Final Entry 1 Procedure Wound Debridement Lower Extremity(Left), Aortogram Abdominal with Runoff(Left), Angioplasty Percutaneous Transluminal(Left) Final Count Info Count Type Sponge, Sharps, Miscellaneous Counts Verification Skin Closure/end of Sequence procedure Count Results Correct, surgeon notified Counts Performed By Count Performed By Jos Ledezma Surgical (Scrub) Dry House Operator Count Performed By Radha Medrano RN (RN) Last Modified By: Radha Medrano RN 08/26/20 14:24:36 [facility] IntraOp Counts Final Audit 08/26/20 14:24:36 Pairer Inspector: LOVELYPIOMAYRA Modifier: EANAPIER 1 <*> Procedure Wound Debridement Lower Extremity(Left), Aortogram Abdominal with Runoff(Left), Angioplasty Percutaneous Transluminal(Left) 1 <+> Count Results 1 <+> Count Performed By (Scrub) 1 <+> Count Performed By (RN) 08/26/20 13:49:14 Pairer Inspector: LOVELYPIOMAYRA Modifier: EANAPIER 1 <*> Procedure Wound Debridement Lower Extremity(Left), Aortogram Abdominal with Runoff(Left) 08/26/20 13:48:01 Pairer Inspector: LOVELYPIOMAYRA Modifier: EANAPIER 1 <*> Procedure Wound Debridement Lower Extremity(Left) [facility] IntraOp Cultures and Spec Summary Entry 1 Cultrures and Specimens Specimen Ordered: Yes Test(s) Culture(s)/Microbiology Requested/Final Disposition Last Modified By: Radha Medrano RN 08/26/20 13:56:41 General Comments: LEFT ANTERIOR LEG WOUND. [facility] IntraOp Departure from OR Entry 1 Integumentary Assessment Integumentary WDL Assessment WDL Transfer/Handoff Transfer to PACU Phase II Handoff Method Phone call Post-op Transport Stretcher/Gurney Via Patient Transport Radha Medrano RN Accompanied by Transfer/Handoff PT TRANSPORTED TO [facility], PT STABLE Last Modified By: Radha Medrano RN 08/26/20 14:24:24 General Comments: [id number] LALA RNSIGN PAINTER HELPER [facility] IntraOp Dressing and Packing Entry 1 Type Dressing Wound Dressing Item Skin Closure Glue Applied By KAELA HEBERT MD Last Modified By: Radha Medrano RN 08/26/20 13:45:13 [facility] IntraOp Fire Risk Assessment Entry [...] Modified By: Radha Medrano RN 08/26/20 13:40:08 [facility] IntraOp General Case Real Estate Transaction Manager 1 Case Information OR OR 20 [facility] Case Level 1 Room Verified Yes Wound Class II - Clean-Contaminated Specialty SN Endovascular Anesthesia Type MAC ASA Class 4 Diagnosis Preop Diagnosis LEFT LEG WOUND Postop Same As Preop No Postop Diagnosis SEE MD NOTE Last Modified By: Radha Medrano RN 08/26/20 13:44:53 [facility] IntraOp Implant Log Entry 1 Type Implant (Synthetic) Implant Log Implant DEVICE CLSR ANGIO-SEAL Identification [facility] [id number] Description Implant Quantity 1 Implant Site RIGHT Implant [id number] Identification Lot Number Implant [facility] Med:Cardiac Surg Identification Purchasing Engineer Name: Implant [id number] Identification Catalog Number Implant Has an Yes Expiration Date Implant Expiration 06/16/21 Date Tissue Implant Last Modified By: Radha Medrano RN 08/26/20 14:23:44 [facility] IntraOp Intraoperative Assessment Entry 1 [...] Modified By: Radha Medrano RN 08/26/20 13:44:22 [facility] IntraOp Intraoperative Equipment Entry 1 Type Monitoring Equipment Intraop Monitoring Electrocardiogram Three lead placement (ECG) Electrode Placement Blood Pressure Non-Invasive BP Device Source Blood Pressure Arm, right upper Location Pulse Oximeter Hand, left Probe Site Antiembolic Devices Scopes Photo/Video Documentation Last Modified By: Radha Medrano RN 08/26/20 13:43:20 [facility] IntraOp Medication Admin Entry 1 Entry 2 Entry 3 Medication/Irrigant PRM-LB VISIPAQUE 320MG lidocaine 1% 10mg/1ml COMBO heparin in NS [id number] 50ml vial - [id number] flush 2000units/1000ml --[id number] Combo Med List Time Administered Route of Administration Dose Dose 320 2000 Unit of Measure mg units Volume Administered By KAELA HEBERT MD MENES, KEITH, MD MENES, KEITH, MD Procedure Irrigation Irrigant Volume In Irrigant Volume Out Last Modified By: Radha Medrano RN Napier, Elizabeth A, RN Napier, Elizabeth A, RN 08/26/20 13:42:30 08/26/20 13:42:30 08/26/20 13:42:30 [facility] IntraOp Patient Positioning Entry 1 [...] Modified By: Radha Medrano RN 08/26/20 13:49:13 [facility] IntraOp Patient Positioning Audit 08/26/20 13:49:13 Pairer Inspector: EANAPIER Modifier: EANAPIER 1 <*> Procedure Wound Debridement Lower Extremity(Left), Aortogram Abdominal with Runoff(Left) 08/26/20 13:48:00 Pairer Inspector: EANAPIER Modifier: EANAPIER 1 <*> Procedure Wound Debridement Lower Extremity(Left) [facility] IntraOp Sign In Entry 1 [...] Modified By: Radha Medrano RN 08/26/20 13:31:46 [facility] IntraOp Sign Out Entry 1 [...] Modified By: Radha Medrano RN 08/26/20 14:32:44 [facility] IntraOp Sign Out Audit 08/26/20 14:32:44 Pairer Inspector: AMAN Modifier: AMAN 1 <*> Specimen Labeled Correctly N/A 1 <+> RN Sign Out Signature 1 <+> RN Sign Out Signature Date/Time [facility] IntraOp Skin Prep Entry 1 Procedure Wound Debridement Lower Extremity(Left), Aortogram Abdominal with Runoff(Left), Angioplasty Percutaneous Transluminal(Left) Prescribed N/A Pre-Surgical Prep Completed Prep Area BILATERAL GROINS, LEFT LOWER LEG Intraop Prep Prep Agents Chloraprep Prep by Radha Medrano RN Hair Removal Methods No hair removal performed Last Modified By: Radha Medrano RN 08/26/20 13:49:14 [facility] IntraOp Skin Prep Audit 08/26/20 13:49:14 Pairer Inspector: AMAN Modifier: REGINANAPIER 1 <*> Procedure Wound Debridement Lower Extremity(Left), Aortogram Abdominal with Runoff(Left) 08/26/20 13:48:00 Pairer Inspector: AMAN Modifier: LOVELYPIER 1 <*> Procedure Wound Debridement Lower Extremity(Left) [facility] IntraOp Surgical Procedures Entry 1 [...] RN 08/26/20 14:22:50 08/26/20 14:22:50 08/26/20 14:22:50 [facility] IntraOp Surgical Procedures Audit 08/26/20 14:22:50 Pairer Inspector: AMAN Modifier: REGINANAPIER 1 <*> Procedure Wound Debridement Lower Extremity 1 <+> Stop <+> 2 Stop <+> 3 Stop 08/26/20 13:56:00 Pairer Inspector: LOVELYPIOMAYRA Modifier: EANAPIER 1 <*> Procedure Wound Debridement Lower Extremity 1 <*> Additional Procedure Description (LT LOWER EXTREMTIY WOUND DEBRIDEMENT WITH WOUND VAC) 08/26/20 13:48:53 Pairer Inspector: EANAPIER Modifier: EANAPIER <+> 3 Procedure <+> 3 Primary Procedure <+> 3 Modifiers <+> 3 Primary Surgeon <+> 3 Specialty <+> 3 Start <+> 3 Wound Class <+> 3 Anesthesia Type 08/26/20 13:47:52 Pairer Inspector: EANAPIER Modifier: EANAPIER <+> 2 Procedure <+> 2 Primary Procedure <+> 2 Modifiers <+> 2 Primary Surgeon <+> 2 Specialty <+> 2 Start <+> 2 Wound Class <+> 2 Anesthesia Type 08/26/20 13:43:42 Pairer Inspector: EANAPIER Modifier: EANAPIER 1 <*> Procedure Wound Debridement Lower Extremity 1 <+> Specialty 1 <*> Anesthesia Type General [facility] IntraOP Time Out Entry 1 [...] Modified By: Radha Medrano RN 08/26/20 13:49:14 [facility] IntraOP Time Out Audit 08/26/20 13:49:14 Pairer Inspector: AMAN Modifier: EANAPIER 1 <*> Procedure to be Performed Wound Debridement Lower Extremity(Left), Aortogram Abdominal with Runoff(Left) 08/26/20 13:48:01 Pairer Inspector: REGINANAPIER Modifier: EANAPIER 1 <*> Procedure to be Performed Wound Debridement Lower Extremity(Left) [facility] IntraOp X-Ray and Images Entry [...] WATTSDR Correct Billing Electronically signed by Sivan [facility] Conversion Ocular Care Technician Cerner at 02/04/2023 2:03 PM CDT documented in this encounter Plan of Treatment Not on file documented as of this encounter Visit Diagnoses Not on filedocumented in this encounter Care Teams Senior Treasury Consultant Relationship Specialty Start Date End Date Jay Howell MD [address] [place] [phone] PCP - General Emergency Medicine 11/12/23 documented as of this encounter
--- OUTSIDE RECORDS SUMMARY | 2025-08-16 09:10 | XMS_ITS | Encounter Summary ---
Author Organization [employer] ([place], [place], [place], [place]) Address [address] [place] [address] Care Team Providers Care Mail Caller Name Role Phone Jay Howell MD Primary Care Provider [phone] Encounter Details Date Type Department Care Team (Late st Contact Info) Description 03/16/2021 Transcribed Document [facility] Family Medicine [address] [place] [address] ProviderJessie MD [address] [place], [place] [address] Social History Tobacco Use Types Packs/Day Years [...] X1 Electronically signed by Gayle Finnegan Conversion Retail Coverage Merchandiser Cerner at 02/04/2023 2:00 PM CDT documented in this encounter Plan of Treatment Not on file documented as of this encounter Visit Diagnoses Not on filedocumented in this encounter Care Teams Mail Caller Relationship Specialty Start Date End Date Jay Howell MD [address] [place] [phone] PCP - General Emergency Medicine 11/12/23 documented as of this encounter
--- OUTSIDE RECORDS SUMMARY | 2025-08-16 09:10 | XMS_ITS | Encounter Summary ---
Author Organization [employer] ([place], [place], [place], [place]) Address [address] [place] [address] Care Team Providers Care Fuel Conversion Technician Name Role Phone Jay Howell MD Primary Care Provider [phone] Encounter Details Date Type Department Care Team (Late st Contact Info) Description 03/16/2021 Transcribed Document [facility] [place] Family Medicine [address] [place] [address] ProviderJessie MD [address] [place], [place] [phone] Social History Tobacco Use Types Packs/Day Years Used Date Smoking Tobacco: Never Assessed Comments Unknown Sex and Gender Information Value Date Recorded Sex Assigned at Not on file Legal Sex Female 7:30 PM CDT Gender Identity Not on file Sexual Orientation Not on file documented as of this encounter Miscellaneous Notes * Cerner Conversion Note - Jessie ProviderMD - 03/16/2021 11:24 AM CDT [place] Suicide Severity Rating Scale (C-SSRS) Entered On: 03/16/2021 12:59 EDT Performed On: 03/16/2021 12:57 EDT by Viri Gonsales RN [place] Suicide Severity Rating Scale (C-SSRS) CSSRS Past Month Wish to be : No CSSRS Past Month Suicidal Thoughts : No CSSRS Lifetime Suicide Behavior : No Suicide Severity Rating Score : 0 Suicide Severity Rating : No Additional Care Required at this time Viri Gonsales RN - 03/16/2021 12:57 EDT Electronically signed by Gayle Finnegan Conversion Radiation Oncology Therapist Cerner at 02/04/2023 2:01 PM CDT documented in this encounter Plan of Treatment Not on file documented as of this encounter Visit Diagnoses Not on filedocumented in this encounter Care Teams Fuel Conversion Technician Relationship Specialty Start Date End Date Jay Howell MD [address] [place] [phone] PCP - General Emergency Medicine 11/12/23 documented as of this encounter
--- OUTSIDE RECORDS SUMMARY | 2025-08-16 09:11 | XMS_ITS | Encounter Summary ---
Author Organization [employer] ([place], [place], [place], [place]) Address [address] [place] [address] Care Team Providers Care Roller Billet Mill Name Role Phone Jay Howell MD Primary Care Provider [phone] Encounter Details Date Type Department Care Team (Late st Contact Info) Description 06/12/2020 Transcribed Document [facility] [place] [address] [place] [address] ProviderJessie MD [address] [place] [address] Social History Tobacco Use Types Packs/Day Years Used Date Smoking Tobacco: Never Assessed Comments Unknown Sex and Gender Information Value Date Recorded Sex Assigned at Not on file Legal Sex Female 7:30 PM CDT Gender Identity Not on file Sexual Orientation Not on file documented as of this encounter Miscellaneous Notes * Cerner Conversion Note - Jessie ProviderMD - 06/12/2020 9:23 PM CDT [place] Suicide Severity Rating Scale (C-SSRS) Entered On: 06/12/2020 22:56 EDT Performed On: 06/12/2020 22:00 EDT by NICOLE BYERS RN [place] Suicide Severity Rating Scale (C-SSRS) CSSRS Past [...] on filedocumented in this encounter Care Teams Roller Billet Mill Relationship Specialty Start Date End Date Jay Howell MD [address] [place] [phone] PCP - General Emergency Medicine 11/12/23 documented as of this encounter
--- OUTSIDE RECORDS SUMMARY | 2025-08-16 09:11 | XMS_ITS | Encounter Summary ---
Author Organization [employer] ([place], [place], [place], [place]) Address [address] [place] [address] Care Team Providers Care Technology Lab Teacher Name Role Phone Jay Howell MD Primary Care Provider [phone] Encounter Details Date Type Department Care Team (Late st Contact Info) Description 03/16/2021 Transcribed Document [facility] [place] Family Medicine [facility] [place] [address] ProviderJessie MD [address] [place] [id number] Social History Tobacco Use Types Packs/Day Years [...] filedocumented in this encounter Care Teams Technology Lab Teacher Relationship Specialty Start Date End Date Jay Howell MD [address] [place] [phone] PCP - General Emergency Medicine 11/12/23 documented as of this encounter
--- OUTSIDE RECORDS SUMMARY | 2025-08-16 09:11 | XMS_ITS | Encounter Summary ---
Author Organization [employer] ([place], [place], [place], [place]) Address [address] [place] [address] Care Team Providers Care Parts Casting Machine Operator Name Role Phone Jay Howell MD Primary Care Provider [phone] Encounter Details Date Type Department Care Team (Late st Contact Info) Description 06/13/2020 Transcribed Document [facility] [place] Family Medicine [address] [place] [address] ProviderJessie MD [address] [place] [address] Social History Tobacco Use Types Packs/Day Years [...] filedocumented in this encounter Care Teams Parts Casting Machine Operator Relationship Specialty Start Date End Date Sokan, Jay O, MD [address] [place] [phone] PCP - General Emergency Medicine 11/12/23 documented as of this encounter
--- OUTSIDE RECORDS SUMMARY | 2025-08-16 09:11 | XMS_ITS | Encounter Summary ---
Author Organization [employer] ([place], [place], [place], [place]) Address [address] [place] [address] Care Team Providers Care Ethnoarchaeologist Name Role Phone Jay Howell MD Primary Care Provider [phone] Encounter Details Date Type Department Care Team (Late st Contact Info) Description 06/13/2020 Transcribed Document [facility] [place] Family Medicine [address] [place] [address] ProviderJessie MD [address] [place] [address] Social History Tobacco Use Types Packs/Day Years [...] EDT Electronically signed by Gayle Finnegan Conversion District Commercial Superintendent Cerner at 02/04/2023 1:55 PM CDT documented in this encounter Plan of Treatment Not on file documented as of this encounter Visit Diagnoses Not on filedocumented in this encounter Care Teams Ethnoarchaeologist Relationship Specialty Start Date End Date Jay Howell MD [address] [place] [phone] PCP - General Emergency Medicine 11/12/23 documented as of this encounter
--- OUTSIDE RECORDS SUMMARY | 2025-08-16 09:11 | XMS_ITS | Encounter Summary ---
Author Organization [employer] ([place], [place], [place], [place]) Address [address] [place] [address] Care Team Providers Care Hull Grinder Name Role Phone Jay Howlel MD Primary Care Provider [phone] Encounter Details Date Type Department Care Team (Late st Contact Info) Description 06/12/2020 Transcribed Document [facility] [place] [address] [place] [address] ProviderJessie MD [address] [place] [address] Social History Tobacco Use Types Packs/Day Years [...] Communication Barrier : None Primary Language : Tristanian Any Spiritual/Cultural Needs or Requests : No [...] filedocumented in this encounter Care Teams Hull Grinder Relationship Specialty Start Date End Date Jay Howell MD [address] [place] [phone] PCP - General Emergency Medicine 11/12/23 documented as of this encounter
--- OUTSIDE RECORDS SUMMARY | 2025-08-16 09:11 | XMS_ITS | Encounter Summary ---
Author Organization [employer] ([place], [place], [place], [place]) Address [address] [place] [address] Care Team Providers Care Polisher Hand Name Role Phone Jay Howell MD Primary Care Provider [phone] Encounter Details Date Type Department Care Team (Late st Contact Info) Description 06/12/2020 Transcribed Document [facility] [place] Family Medicine [address] [place] [address] ProviderJessie MD [address] [place] [address] Social History Tobacco Use Types Packs/Day Years [...] : 2 - Emergent Tracking Group : [facility] ED Roni Peralta RN - [...] 21:35:03 EDT) Problems(Active) Apnea, sleep (SNOMED CT :061502770 ) Name of Problem: Apnea, sleep ; Recorder: JUAN LUIS GIL RN; Confirmation: Confirmed ; Classification: Medical ; Code: 659212170 ; Contributor System: PowerChart ; Last Updated: 11/12/2014 10:12 EST ; Life Cycle Date: 11/12/2014 ; Life Cycle Status: Active ; Vocabulary: SNOMED CT Arthritis (SNOMED CT :1167321 ) Name of Problem: Arthritis ; Recorder: KENYON CHAMBERS RN; Confirmation: Confirmed ; Classification: Medical ; Code: 5062202 ; Contributor System: PowerChart ; Last Updated: 04/10/2016 8:04 EDT ; Life Cycle Date: 08/13/2013 ; Life Cycle Status: Active ; Vocabulary: SNOMED CT Atrial fibrillation with RVR (SNOMED CT :0483273381 ) Name of Problem: Atrial fibrillation with RVR ; Recorder: SANG RICO APRN; Confirmation: Confirmed ; Classification: Medical ; Code: 6080627241 ; Contributor System: PowerChart ; Last Updated: 04/10/2016 8:05 EDT ; Life Cycle Date: 04/10/2016 ; Life Cycle Status: Active ; Responsible Provider: SANG RICO APRN; Vocabulary: SNOMED CT Blood clot (SNOMED CT :480397201 ) Name of Problem: Blood clot ; Recorder: KENYON CHAMBERS RN; Confirmation: Confirmed ; Classification: Patient Stated ; Code: 812410351 ; Contributor System: PowerChart ; Last Updated: [...] Vocabulary: Patient Care Chest pain (SNOMED CT :64136182 ) Name of Problem: Chest pain ; Recorder: SANG RICO APRN; Confirmation: Complaint of ; Classification: Medical ; Code: 53791581 ; Contributor System: PowerChart ; Last Updated: 04/10/2016 8:05 EDT ; Life Cycle Status: Active ; Responsible Provider: SANG RICO APRN; Vocabulary: SNOMED CT Chronic anticoagulation (SNOMED CT :261720888 ) Name of Problem: Chronic anticoagulation ; Recorder: SANG RICO APRN; Confirmation: Confirmed ; Classification: Medical ; Code: 046851930 ; Contributor System: PowerChart ; Last Updated: 04/10/2016 8:05 EDT ; Life Cycle Date: 04/10/2016 ; Life Cycle Status: Active ; Responsible Provider: SANG RICO APRN; Vocabulary: SNOMED CT Clotting disorder (SNOMED CT :377760428 ) Name of Problem: Clotting disorder ; Recorder: KENYON CHAMBERS RN; Confirmation: Confirmed ; Classification: Patient Stated ; Code: 937107032 ; Contributor System: PowerChart ; Last Updated: 03/28/2014 19:29 EDT ; Life Cycle Date: 08/13/2013 ; Life Cycle Status: Active ; Vocabulary: SNOMED CT COPD (SNOMED CT :49270847 ) Name of Problem: COPD ; Recorder: KENYON CHAMBERS RN; Confirmation: Confirmed ; Classification: Medical ; Code: 62176871 ; Contributor System: PowerChart ; Last Updated: 04/10/2016 8:03 EDT ; Life Cycle Date: 08/13/2013 ; Life Cycle Status: Active ; Vocabulary: SNOMED CT Coronary artery disease (SNOMED CT :0149654410 ) Name of Problem: Coronary artery disease ; Recorder: KENYON CHAMBERS RN; Confirmation: Confirmed ; Classification: Medical ; Code: 2300940497 ; Contributor System: PowerChart ; Last Updated: 04/10/2016 8:03 EDT ; Life Cycle Date: 08/13/2013 ; Life Cycle Status: Active ; Vocabulary: SNOMED CT Diabetes mellitus (SNOMED CT :785748709 ) Name of Problem: Diabetes mellitus ; Recorder: KENYON CHAMBERS RN; Confirmation: Confirmed ; Classification: Medical ; Code: 809758218 ; Contributor System: PowerChart ; Last Updated: 04/10/2016 8:04 EDT ; Life Cycle Date: 08/13/2013 ; Life Cycle Status: Active ; Vocabulary: SNOMED CT Emphysema (SNOMED CT :150097939 ) Name of Problem: Emphysema ; Recorder: JUAN LUIS GIL RN; Confirmation: Confirmed ; Classification: Medical ; Code: 140734134 ; Contributor System: PowerChart ; Last Updated: 11/12/2014 10:11 EST ; Life Cycle Date: 11/12/2014 ; Life Cycle Status: Active ; Vocabulary: SNOMED CT GERD - Gastro-esophageal reflux disease (SNOMED CT :1000580583 ) Name of Problem: GERD - Gastro-esophageal reflux disease ; Recorder: KENYON CHAMBERS RN; Confirmation: Confirmed ; Classification: Medical ; Code: 6171757003 ; Contributor System: PowerChart ; Last Updated: [...] Patient Care High blood pressure (SNOMED CT :37353453 ) Name of Problem: High blood pressure ; Recorder: KENYON CHAMBERS RN; Confirmation: Confirmed ; Classification: Medical ; Code: 07569398 ; Contributor System: PowerChart ; Last Updated: 04/10/2016 8:03 EDT ; Life Cycle Date: 08/13/2013 ; Life Cycle Status: Active ; Vocabulary: SNOMED CT History of obstructive sleep apnea (IMO :57780073 ) Name of Problem: History of obstructive sleep apnea ; Recorder: SYSTEM, SYSTEM; Confirmation: Confirmed ; Classification: Medical ; Code: 73671325 ; Last Updated: 12/20/2018 12:01 EST ; Life Cycle Date: 12/20/2018 ; Life Cycle Status: Active ; Vocabulary: IMO Hx of pulmonary embolus (SNOMED CT :340964374 ) Name of Problem: Hx of pulmonary embolus ; Recorder: SANG RICO APRN; Confirmation: Confirmed ; Classification: Medical ; Code: 004006204 ; Contributor System: PowerChart ; Last Updated: 04/10/2016 8:05 EDT ; Life Cycle Date: 04/10/2016 ; Life Cycle Status: Active ; Responsible Provider: SANG RICO APRN; Vocabulary: SNOMED CT Hyperlipidemia (SNOMED CT :07446246 ) Name of Problem: Hyperlipidemia ; Recorder: KENYON CHAMBERS RN; Confirmation: Confirmed ; Classification: Medical ; Code: 09514997 ; Contributor System: [employer] ; Last Updated: 04/10/2016 8:03 EDT ; Life Cycle Date: 08/13/2013 ; Life Cycle Status: Active ; Vocabulary: SNOMED CT Multiple renal cysts (SNOMED CT :646924501 ) Name of Problem: Multiple renal cysts ; Recorder: KENYON CHAMBERS RN; Confirmation: Confirmed ; Classification: Medical ; Code: 557830862 ; Contributor System: PowerChart ; Last Updated: 04/10/2016 8:04 EDT ; Life Cycle Date: 08/13/2013 ; Life Cycle Status: Active ; Vocabulary: SNOMED CT Stented coronary artery (SNOMED CT :5211704365 ) Name of Problem: Stented coronary artery ; Recorder: KENYON CHAMBERS RN; Confirmation: Confirmed ; Classification: Medical ; Code: 3245611018 ; Contributor System: PowerChart ; Last Updated: 04/10/2016 8:03 EDT ; Life Cycle Date: 08/13/2013 ; Life Cycle Status: Active ; Vocabulary: SNOMED CT UTI - Urinary tract infection (SNOMED CT :5420504065 ) Name of Problem: UTI - Urinary tract infection ; Recorder: KENYON CHAMBERS RN; Confirmation: Confirmed ; Classification: Medical ; Code: 3760417594 ; Contributor System: PowerChart ; Last Updated: 04/10/2016 8:04 EDT ; Life Cycle Date: 08/13/2013 ; Life Cycle Status: Active ; Vocabulary: SNOMED CT Diagnoses(Active) Chest pain Date: 06/12/2020 ; Diagnosis Type: Reason For Visit ; Confirmation: Complaint of ; Clinical Dx: Chest pain ; Classification: Medical ; Clinical Service: Emergency medicine ; Code: PNED ; Probability: 0 ; Diagnosis Code: [id number] ED Height and Weight Height Source : Stated Height Entry Format : [place] Height, Feet : 5 ft(Converted to: 152 cm, 60 Inch) Height, Inches : 3 Inch(Converted to: 0 ft 3 Inch, 7.62 cm) Clinical Height : 160.02 cm Weight Source, ED : Critical estimated dosing weight Weight Entry Format : [place] Weight, Pounds : 161 lb Clinical Dosing Weight : 73.18 kg Body Surface Area (BSA) : 1.77 m2 Body Mass Index : 28.6 kg/m2 (HI) [place] Body Weight (IBW) : 52.02 kg Roni Peralta RN - 06/12/2020 21:31 EDT documented in this encounter Plan of Treatment Not on file documented as of this encounter Visit Diagnoses Not on filedocumented in this encounter Care Teams Polisher Hand Relationship Specialty Start Date End Date Jay Howell MD [address] [place] [phone] PCP - General Emergency Medicine 11/12/23 documented as of this encounter
--- OUTSIDE RECORDS SUMMARY | 2025-08-16 09:11 | XMS_ITS | Encounter Summary ---
Author Organization [employer] ([place], [place], [place], [place]) Address [address] [place] [address] Care Team Providers Care Cement Based Materials Pump Tender Name Role Phone Jay Howell MD Primary Care Provider [phone] Encounter Details Date Type Department Care Team (Late st Contact Info) Description 12/21/2018 Transcribed Document [facility] [place] [address] [place] [address] ProviderJessie MD [address] [place] [address] Social History Tobacco Use Types Packs/Day Years Used Date Smoking Tobacco: Never Assessed Comments Unknown Sex and Gender Information Value Date Recorded Sex Assigned at Not on file Legal Sex Female 7:30 PM CDT Gender Identity Not on file Sexual Orientation Not on file documented as of this encounter Miscellaneous Notes * Cerner Conversion Note - Jessie ProviderMD - 12/21/2018 11:46 AM SURVEY INSTRUMENT OPERATOR Nursing Discharge Summary Entered On: 12/21/2018 [...] Number of Prescriptions Given : 5 Dinora Viiera Rn - 12/21/2018 11:47 EST Patient Disposition, General : Discharge Discharge To : Home with ambulatory/outpatient follow-up Mode Of Departure, General Discharge : Private vehicle IV Discontinued : Yes Dinora Vieira Rn - 12/21/2018 11:46 EST Electronically signed by [facility], [facility] Conversion Rags Laborer Cerner at 02/04/2023 2:08 PM CDT documented in this encounter Plan of Treatment Not on file documented as of this encounter Visit Diagnoses Not on filedocumented in this encounter Care Teams Cement Based Materials Pump Tender Relationship Specialty Start Date End Date Jay Howell MD [address] [place] [phone] PCP - General Emergency Medicine 11/12/23 documented as of this encounter
--- OUTSIDE RECORDS SUMMARY | 2025-08-16 09:11 | XMS_ITS | Encounter Summary ---
Author Organization [employer] ([place], [place], [place], [place]) Address [address] [place] [address] Care Team Providers Care Automobile Carpets Molder Name Role Phone Jay Howell MD Primary Care Provider [phone] Encounter Details Date Type Department Care Team (Late st Contact Info) Description 06/13/2020 Transcribed Document [facility] [place] Family Medicine [address] [place] [address] ProviderJessie MD [address] [place] [address] Social History Tobacco Use Types Packs/Day Years [...] EDT Electronically signed by Gayle Finnegan Conversion Trimming Machine Set Up Operator Cerner at 02/04/2023 2:15 PM CDT documented in this encounter Plan of Treatment Not on file documented as of this encounter Visit Diagnoses Not on filedocumented in this encounter Care Teams Automobile Carpets Molder Relationship Specialty Start Date End Date Jay Howell MD [address] [place] [phone] PCP - General Emergency Medicine 11/12/23 documented as of this encounter
--- OUTSIDE RECORDS SUMMARY | 2025-08-16 09:11 | XMS_ITS | Encounter Summary ---
Author Organization [employer] ([place], [place], [place], [place]) Address [address] [place] [address] Care Team Providers Care Reviewer Sales Name Role Phone Jay Howell MD Primary Care Provider [phone] Encounter Details Date Type Department Care Team (Late st Contact Info) Description 06/13/2020 Transcribed Document [facility] [place] Family Medicine [address] [place] [address] ProviderJessie MD [address] [place] [address] Social History Tobacco Use Types Packs/Day Years [...] Insurance 1 Health Plan: MEDICARE Policy Number: [id number] Authorization Number: Insurance 2 Health Plan: AARP N Policy Number: [id number] Authorization Number: Insurance Primary Name : MEDICARE Policy Number: [id number] Authorized Service Begin Date-Primary : 06/12/2020 EDT Historical Authorization Comments-Primary : No Authorization Comments Found MARILYNN RAMÍREZ, RN-Utilization Review - 06/13/2020 9:06 EDT Electronically signed by Sivan [facility] Conversion Lithographic Camera Operator Cerner at 02/04/2023 2:21 PM CDT documented in this encounter Plan of Treatment Not on file documented as of this encounter Visit Diagnoses Not on filedocumented in this encounter Care Teams Reviewer Sales Relationship Specialty Start Date End Date Jay Howell MD [address] [place] [phone] PCP - General Emergency Medicine 11/12/23 documented as of this encounter
--- OUTSIDE RECORDS SUMMARY | 2025-08-16 09:11 | XMS_ITS | Encounter Summary ---
Author Organization [employer] ([place], [place], [place], [place]) Address [address] [place] [address] Care Team Providers Care Quill Winder Name Role Phone Jay Howell MD Primary Care Provider [phone] Encounter Details Date Type Department Care Team (Late st Contact Info) Description 06/13/2020 Transcribed Document [facility] [place] [address] [place] [address] ProviderJessie MD [address] [place] [address] Social History Tobacco Use Types Packs/Day Years [...] Tobacco Cues : Verbalizes understanding Activities to Burt With Smoking Urges : Verbalizes understanding Basic Information About Quitting : Verbalizes understanding Tobacco Use Increases Chance of Relapse : Verbalizes understanding Withdrawal Symptoms Peak After Quitting : Verbalizes understanding Addictive Nature of Tobacco : Verbalizes understanding PAUL GERBER RN - 06/13/2020 3:34 EDT Electronically signed by Gayle Finnegan Conversion Sales Representative Education Courses Cerner at 02/04/2023 2:21 PM CDT documented in this encounter Plan of Treatment Not on file documented as of this encounter Visit Diagnoses Not on filedocumented in this encounter Care Teams Quill Winder Relationship Specialty Start Date End Date Jay Howell MD [address] [place] [phone] PCP - General Emergency Medicine 11/12/23 documented as of this encounter
--- OUTSIDE RECORDS SUMMARY | 2025-08-16 09:11 | XMS_ITS | Encounter Summary ---
Author Organization [employer] ([place], [place], [place], [place]) Address [address] [place] [address] Care Team Providers Care Medical Resident Name Role Phone Jay Howell MD Primary Care Provider [phone] Encounter Details Date Type Department Care Team (Late st Contact Info) Description 06/12/2020 Transcribed Document [facility] [place] [address] [place] [address] ProviderJessie MD [address] [place] [address] Social History Tobacco Use Types Packs/Day Years [...] Years. Coronary artery bypass graft (SNOMED CT 123287036) in 1992 at 52 Years. femur repair. Appendectomy (SNOMED CT 411552198). uterine suspension. Hysterectomy (SNOMED CT 548282675). back surgury. Cholecystectomy (SNOMED CT 00126277). Hip replacement (SNOMED CT 5917696662). cataract surgury., Reviewed as documented in chart. [...] EDT Height Source Stated Height Entry Format [place] Height/Length, SAMMARINESE (ft) 5 ft Height/Length SAMMARINESE 3 Inch CLINICALHEIGHT 160.02 cm [place] Body Weight 52.02 kg Weight Source, ED Critical estimated dosing weight Weight Entry Format Rum[place] Weight Slovak lb 161 lb CLINICALWEIGHT 73.18 kg Body [...] rhythm, No ST changes, no ectopy, normal [place] & QRS intervals, EP Interp. Electrocardiogram: Time 06/13/2020 00:55:00, rate 67, normal sinus rhythm, No ST changes, no ectopy, normal [place] & QRS intervals, EP Interp. Results review: [...] % 34.6 % Lymph # 1.99 x10(3)/uL Mora % 10.6 % HI Mora # 0.61 K/uL Eos % 2.1 % [...] type: Telemetry unit, Admitting: MARIA ELENA DAVALOS [facility] . Counseled: Patient, Family, Regarding diagnosis, Regarding diagnostic results, Regarding treatment plan, Patient indicated understanding of instructions. Notes: Patient presents with hypertensive urgency and chest pain. Initial EKG and troponin negative. Blood pressure decreased after IV hydralazine, labetalol, and transdermal Nitropaste. Discussed with Dr. Davalos, hospitalist, he accepts admission for further evaluation and care.. Electronically signed by Sivan [facility] Conversion Dentistry Teacher Cerner at 02/04/2023 2:16 PM CDT documented in this encounter Plan of Treatment Not on file documented as of this encounter Visit Diagnoses Not on filedocumented in this encounter Care Teams Medical Resident Relationship Specialty Start Date End Date Jay Howell MD [address] [place] [phone] PCP - General Emergency Medicine 11/12/23 documented as of this encounter
--- OUTSIDE RECORDS SUMMARY | 2025-08-16 09:11 | XMS_ITS | Encounter Summary ---
Author Organization [employer] ([place], [place], [place], [place]) Address [address] [place] [address] Care Team Providers Care Stem Processing Machine Operator Name Role Phone Jay Howell MD Primary Care Provider [phone] Encounter Details Date Type Department Care Team (Late st Contact Info) Description 03/16/2021 Transcribed Document [facility] [place] [address] ProviderJessie MD [address] [place], [place] [address] Social History Tobacco Use Types Packs/Day Years [...] Communication Barrier : None Primary Language : Estonian Any Spiritual/Cultural Needs or Requests : No [...] WDL : WDL with exceptions (Comment: Dizziness INSPECTOR GLASS OR MIRROR, states that she passed out and the room was spinning [Viri Gonsales RN - 03/16/2021 12:57 EDT] ) Viri Gonsales RN - 03/16/2021 12:57 EDT Electronically signed by [facility], [facility] Conversion Mail Superintendent Cerner at 02/04/2023 2:07 PM CDT documented in this encounter Plan of Treatment Not on file documented as of this encounter Visit Diagnoses Not on filedocumented in this encounter Care Teams Stem Processing Machine Operator Relationship Specialty Start Date End Date Jay Howell MD [address] [place] [phone] PCP - General Emergency Medicine 11/12/23 documented as of this encounter
--- OUTSIDE RECORDS SUMMARY | 2025-08-16 09:11 | XMS_ITS | Encounter Summary ---
Author Organization [employer] ([place], [place], [place], [place]) Address [address] [place] [address] Care Team Providers Care Transit Mixer Driver Name Role Phone Jay Howell MD Primary Care Provider [phone] Encounter Details Date Type Department Care Team (Late st Contact Info) Description 06/13/2020 Transcribed Document [facility] [place] [address] [place] [address] ProviderJessie MD [address] [place] [address] Social History Tobacco Use Types Packs/Day Years [...] Problem list: Medical Arthritis / SNOMED CT 3143355 / Confirmed Atrial fibrillation with RVR / SNOMED CT 6790925361 / Confirmed Cataract / Patient Care / Confirmed Chest pain / SNOMED CT 19308440 / Complaint of COPD / SNOMED CT 13931432 / Confirmed Coronary artery disease / SNOMED CT 3825160259 / Confirmed Diabetes mellitus / SNOMED CT 627168105 / Confirmed GERD - Gastro-esophageal reflux disease / SNOMED CT 8337625071 / Confirmed Glaucoma / Patient Care / Confirmed Chronic anticoagulation / SNOMED CT 082237985 / Confirmed Hx of pulmonary embolus / SNOMED CT 650772725 / Confirmed High blood pressure / SNOMED CT 82799104 / Confirmed History of obstructive sleep apnea / IMO 97626078 / Confirmed Hyperlipidemia / SNOMED CT 60492618 / Confirmed Multiple renal cysts / SNOMED CT 754820553 / Confirmed Emphysema / SNOMED CT 592376499 / Confirmed Apnea, sleep / SNOMED CT 203894295 / Confirmed Stented coronary artery / SNOMED CT 3257913761 / Confirmed UTI - Urinary tract infection / SNOMED CT 7042837867 / Confirmed, Active Problems (21) Apnea, sleep [...] and time 36mins Electronically signed by Interface, [facility] Conversion Underwater Hunter Trapper Cerner at 02/04/2023 2:21 PM CDT documented in this encounter Plan of Treatment Not on file documented as of this encounter Visit Diagnoses Not on filedocumented in this encounter Care Teams Transit Mixer Driver Relationship Specialty Start Date End Date Jay Howell MD [address] [place] [phone] PCP - General Emergency Medicine 11/12/23 documented as of this encounter
--- OUTSIDE RECORDS SUMMARY | 2025-08-16 09:11 | XMS_ITS | Encounter Summary ---
Author Organization [employer] ([place], [place], [place], [place]) Address [address] [place] [address] Care Team Providers Care Mechanical System Technician Name Role Phone Jay Howell MD Primary Care Provider [phone] Encounter Details Date Type Department Care Team (Late st Contact Info) Description 12/21/2018 Transcribed Document [facility] [place] [address] [place] [address] ProviderJessie MD [address] [place] [address] Social History Tobacco Use Types Packs/Day Years Used Date Smoking Tobacco: Never Assessed Comments Unknown Sex and Gender Information Value Date Recorded Sex Assigned at Not on file Legal Sex Female 7:30 PM CDT Gender Identity Not on file Sexual Orientation Not on file documented as of this encounter Miscellaneous Notes * Cerner Conversion Note - Jessie Yuen MD - 12/21/2018 11:50 AM PROGRAMMING DEVELOPMENT PROJECT MANAGER Patient Education Materials Follows: Groin Site Care [...] 11/05/2011 Document Revised: 12/25/2012 Document Reviewed: 11/05/2011 [employer]ypioCare? Patient Information ?2014 [employer]. Cardiovascular Coronary Artery Disease, Female Coronary artery [...] can cause a heart attack (myocardial infarction, MS). CAD is a leading cause of for [...] 12/25/2012 Document Revised: 03/10/2017 Document Reviewed: 02/04/2015 [employer] Interactive Patient Education ? 2017 [employer]. Nutrition Heart-Healthy Eating Plan Introduction Heart-healthy meal [...] What foods can I eat? GrainsBreads, including Peruvian, white, jie, wheat, raisin, rye, oatmeal, and Namibian. Tortillas that are neither fried nor made with lard or trans fat. Low-fat rolls, including hotdog and hamburger buns and Georgian muffins. Biscuits. Muffins. Waffles. Pancakes. Light popcorn. Whole-grain cereals. Flatbread. [place] toast. Pretzels. Breadsticks. Rusks. Low-fat snacks. Low-fat [...] cottage cheese. Whole-milk cheeses, including blue (fredo), Mccormick Armand, Brie, Nate, Turkmen, Havarti, Citizen Of [place], cheddar, Camembert, and [place]. Whole or 2% milk that is liquid, [...] that has suet, meat fat, or shortening. [place]chales butter, hydrogenated oils, palm oil, coconut oil, [...] including vitamins, herbs, eye drops, creams, and xflu-nvf-bhpdmkw medicines. ??? Any problems you or family [...] 03/06/2014 Elsevier Interactive Patient Education ? 2017 [employer] documented in this encounter Plan of Treatment Not on file documented as of this encounter Visit Diagnoses Not on filedocumented in this encounter Care Teams Mechanical System Technician Relationship Specialty Start Date End Date Jay Howell MD [address] [place] [phone] PCP - General Emergency Medicine 11/12/23 documented as of this encounter
--- OUTSIDE RECORDS SUMMARY | 2025-08-16 09:11 | XMS_ITS | Encounter Summary ---
Author Organization [employer] ([place], [place], [place], [place]) Address [address] [place] [address] Care Team Providers Care Parcel Post Delivery Name Role Phone Jay Howell MD Primary Care Provider [phone] Encounter Details Date Type Department Care Team (Late st Contact Info) Description 03/16/2021 Transcribed Document [facility] [place] [address] [place] [address] ProviderJessie MD [address] [place], [place] [address] Social History Tobacco Use Types Packs/Day Years [...] 03/16/2021 12:57 EDT Electronically signed by Sivan [facility] Conversion Doctor Of Naprapathic Medicine Cerner at 02/04/2023 1:58 PM CDT documented in this encounter Plan of Treatment Not on file documented as of this encounter Visit Diagnoses Not on filedocumented in this encounter Care Teams Parcel Post Delivery Relationship Specialty Start Date End Date Jay Howell MD [address] [place] [phone] PCP - General Emergency Medicine 11/12/23 documented as of this encounter
--- OUTSIDE RECORDS SUMMARY | 2025-08-16 09:11 | XMS_ITS | Encounter Summary ---
Author Organization [employer] ([place], [place], [place], [place]) Address [address] [place] [address] Care Team Providers Care Clinical Nurse Reviewer Name Role Phone Jay Howell MD Primary Care Provider [phone] Encounter Details Date Type Department Care Team (Late st Contact Info) Description 06/13/2020 Transcribed Document [facility] [place] [address] [place] [address] ProviderJessie MD [address] [place] [address] Social History Tobacco Use Types Packs/Day Years [...] Ms. Montoya reported she would call for web communications specialist if/when she decides to complete one FARHANA PATEL - 06/13/2020 12:16 EDT documented in this encounter Plan of Treatment Not on file documented as of this encounter Visit Diagnoses Not on filedocumented in this encounter Care Teams Clinical Nurse Reviewer Relationship Specialty Start Date End Date Jay Howell MD [address] [place] [phone] PCP - General Emergency Medicine 11/12/23 documented as of this encounter
--- OUTSIDE RECORDS SUMMARY | 2025-08-16 09:11 | XMS_ITS | Encounter Summary ---
Author Organization [employer] ([place], [place], [place], [place]) Address [address] [place] [address] Care Team Providers Care Application Design Engineer Name Role Phone Jay Howell MD Primary Care Provider [phone] Encounter Details Date Type Department Care Team (Late st Contact Info) Description 03/16/2021 Transcribed Document [facility] [place] [address] [place] [address] ProviderJessie MD [address] [place] [address] Social History Tobacco Use Types Packs/Day Years [...] EDT - EVA WESLEY RN PCI w/ Tif[place] stent to D1 Coronary artery bypass graft (234830882) in 1992 at 52 Years. femur repair. Appendectomy (120816403). uterine suspension. Hysterectomy (325556038). back surgury. Cholecystectomy (86897258). Hip replacement (9222958950). cataract surgury.. Family history: Cardiomyopathy Child Stroke [...] EDT Height Source Stated Height Entry Format [place] Height/Length, NEPALI (ft) 5 ft Height/Length NEPALI 3 Inch CLINICALHEIGHT 160.02 cm [place] Body Weight 52.02 kg Weight Source, ED Critical estimated dosing weight Weight Entry Format [place] Weight Chinese lb 158 lb CLINICALWEIGHT 71.82 kg Body [...] Triage: ED C-SSRS: ED Clinical Reconciliation: ED client application support specialist: Lactic Acid Level with Reflex if Indicated: Lipase Level: Normal Saline Bolus: 500 mL, 500 mL/Hr, IV Piggyback, 1-Time PT/INR Prothrombin Time: PTT: Saline Lock Insert: Troponin I Ultra: Urinalysis UA Rflx Microscopic Cult if Ind: Zofran: 4 mg, IV Push, 1-Time. satellite project site monitor: Normal sinus rhythm. Electrocardiogram: Time 03/16/2021 11:38:00, rate 59, normal sinus rhythm, No ST changes, no ectopy, normal NE & QRS intervals, EP Interp. Results review: All Results 03/16/2021 14:09 EDT Urine Type. U CleanCatch Urine Color Yellow Urine Appearance Clear Urine Specific [place] 1.014 Urine pH Dipstick 5.5 LOW Urine [...] 15.6 % LOW Lymph # 1.52 x10(3)/uL [place] % 5.1 % [place] # 0.50 K/uL Eos % 0.0 % Eos # 0.00 x10(3)/uL Baso % 0.3 % Baso # 0.03 x10(3)/uL Slide Review No IG# 0.06 x10(3)/uL HI IG% 0.60 % . Radiology results: Radiology Results (Last 48 hours) [id number] -- 03/16/2021 11:24 CR Hip Uni Comp [...] Care: Telemetry unit, Admitting: MARIA ELENA DAVALOS MD-[facility], Launch Orders Consults: Consult to Physician (Order): Start: 03/16/2021 15:29 EDT, Consult to: SAMANTHA PINA MD-[facility], For right wrist fracture, Engineering Technologist Notified by Physician, Group/Instructions: [facility], [facility] clinic ortho. Notes: I certify that the MLP/TOOL TROUBLE SHOOTER performed the services as delegated. . Electronically signed by Sivan [facility] Conversion Excavating Supervisor Cerner at 02/04/2023 1:57 PM CDT documented in this encounter Plan of Treatment Not on file documented as of this encounter Visit Diagnoses Not on filedocumented in this encounter Care Teams Application Design Engineer Relationship Specialty Start Date End Date Jay Howell MD [address] [place] [phone] PCP - General Emergency Medicine 11/12/23 documented as of this encounter
--- OUTSIDE RECORDS SUMMARY | 2025-08-16 09:11 | XMS_ITS | Encounter Summary ---
Author Organization [employer] ([place], [place], [place], [place]) Address [address] [place] [address] Care Team Providers Care Parking Meter Mechanic Name Role Phone Jay Howell MD Primary Care Provider [phone] Encounter Details Date Type Department Care Team (Late st Contact Info) Description 03/16/2021 Transcribed Document [facility] [place] [address] [place] [address] ProviderJessie MD [address] [place] [phone] Social History Tobacco Use Types Packs/Day Years [...] Group : [facility] ED NICOLE CHEN RN - 03/16/2021 11:32 [...] 11:35:39 EDT) Problems(Active) Apnea, sleep (SNOMED CT :370058052 ) Name of Problem: Apnea, sleep ; Recorder: JUAN LUIS GIL RN; Confirmation: Confirmed ; Classification: Medical ; Code: 686511180 ; Contributor System: PowerChart ; Last Updated: 11/12/2014 10:12 EST ; Life Cycle Date: 11/12/2014 ; Life Cycle Status: Active ; Vocabulary: SNOMED CT Arthritis (SNOMED CT :6193039 ) Name of Problem: Arthritis ; Recorder: KENYON CHAMBERS RN; Confirmation: Confirmed ; Classification: Medical ; Code: 1418298 ; Contributor System: PowerChart ; Last Updated: 04/10/2016 8:04 EDT ; Life Cycle Date: 08/13/2013 ; Life Cycle Status: Active ; Vocabulary: SNOMED CT Atrial fibrillation with RVR (SNOMED CT :0746532908 ) Name of Problem: Atrial fibrillation with RVR ; Recorder: SANG RICO APRN; Confirmation: Confirmed ; Classification: Medical ; Code: 0933992687 ; Contributor System: PowerChart ; Last Updated: 04/10/2016 8:05 EDT ; Life Cycle Date: 04/10/2016 ; Life Cycle Status: Active ; Responsible Provider: SANG RICO APRN; Vocabulary: SNOMED CT Blood clot (SNOMED CT :618662824 ) Name of Problem: Blood clot ; Recorder: KENYON CHAMBERS RN; Confirmation: Confirmed ; Classification: Patient Stated ; Code: 872821305 ; Contributor System: PowerChart ; Last Updated: [...] Vocabulary: Patient Care Chest pain (SNOMED CT :24002968 ) Name of Problem: Chest pain ; Recorder: SANG RICO APRN; Confirmation: Complaint of ; Classification: Medical ; Code: 31683613 ; Contributor System: PowerChart ; Last Updated: 04/10/2016 8:05 EDT ; Life Cycle Status: Active ; Responsible Provider: SANG RICO APRN; Vocabulary: SNOMED CT Chronic anticoagulation (SNOMED CT :022506063 ) Name of Problem: Chronic anticoagulation ; Recorder: SANG RICO APRN; Confirmation: Confirmed ; Classification: Medical ; Code: 643750835 ; Contributor System: Nusym TechnologyChart ; Last Updated: 04/10/2016 8:05 EDT ; Life Cycle Date: 04/10/2016 ; Life Cycle Status: Active ; Responsible Provider: SANG RICO APRN; Vocabulary: SNOMED CT Clotting disorder (SNOMED CT :462329620 ) Name of Problem: Clotting disorder ; Recorder: KENYON CHAMBERS RN; Confirmation: Confirmed ; Classification: Patient Stated ; Code: 280599064 ; Contributor System: Nusym TechnologyChart ; Last Updated: 03/28/2014 19:29 EDT ; Life Cycle Date: 08/13/2013 ; Life Cycle Status: Active ; Vocabulary: SNOMED CT COPD (SNOMED CT :89855045 ) Name of Problem: COPD ; Recorder: KENYON CHAMBERS RN; Confirmation: Confirmed ; Classification: Medical ; Code: 26458580 ; Contributor System: N[employer]ym TechnologyChart ; Last Updated: 04/10/2016 8:03 EDT ; Life Cycle Date: 08/13/2013 ; Life Cycle Status: Active ; Vocabulary: SNOMED CT Coronary artery disease (SNOMED CT :4239713275 ) Name of Problem: Coronary artery disease ; Recorder: KENYON CHAMBERS RN; Confirmation: Confirmed ; Classification: Medical ; Code: 9814666458 ; Contributor System: N[employer]ym TechnologyChart ; Last Updated: 04/10/2016 8:03 EDT ; Life Cycle Date: 08/13/2013 ; Life Cycle Status: Active ; Vocabulary: SNOMED CT Diabetes mellitus (SNOMED CT :257878844 ) Name of Problem: Diabetes mellitus ; Recorder: KENYON CHAMBERS RN; Confirmation: Confirmed ; Classification: Medical ; Code: 924608909 ; Contributor System: N[employer]ym TechnologyChart ; Last Updated: 04/10/2016 8:04 EDT ; Life Cycle Date: 08/13/2013 ; Life Cycle Status: Active ; Vocabulary: SNOMED CT Emphysema (SNOMED CT :825989648 ) Name of Problem: Emphysema ; Recorder: JUAN LUIS GIL RN; Confirmation: Confirmed ; Classification: Medical ; Code: 468732286 ; Contributor System: PowerChart ; Last Updated: 11/12/2014 10:11 EST ; Life Cycle Date: 11/12/2014 ; Life Cycle Status: Active ; Vocabulary: SNOMED CT GERD - Gastro-esophageal reflux disease (SNOMED CT :0451094439 ) Name of Problem: GERD - Gastro-esophageal reflux disease ; Recorder: KENYON CHAMBERS RN; Confirmation: Confirmed ; Classification: Medical ; Code: 1315125846 ; Contributor System: PowerChart ; Last Updated: [...] Patient Care High blood pressure (SNOMED CT :96423095 ) Name of Problem: High blood pressure ; Recorder: KENYON CHAMBERS RN; Confirmation: Confirmed ; Classification: Medical ; Code: 08807822 ; Contributor System: PowerChart ; Last Updated: 04/10/2016 8:03 EDT ; Life Cycle Date: 08/13/2013 ; Life Cycle Status: Active ; Vocabulary: SNOMED CT History of obstructive sleep apnea (IMO :27136161 ) Name of Problem: History of obstructive sleep apnea ; Recorder: SYSTEM, SYSTEM; Confirmation: Confirmed ; Classification: Medical ; Code: 36432205 ; Last Updated: 08/25/2020 18:21 EST ; Life Cycle Date: 08/25/2020 ; Life Cycle Status: Active ; Vocabulary: IMO Hx of pulmonary embolus (SNOMED CT :011048913 ) Name of Problem: Hx of pulmonary embolus ; Recorder: SANG RICO APRN; Confirmation: Confirmed ; Classification: Medical ; Code: 265627675 ; Contributor System: PowerChart ; Last Updated: 04/10/2016 8:05 EDT ; Life Cycle Date: 04/10/2016 ; Life Cycle Status: Active ; Responsible Provider: SANG RICO APRN; Vocabulary: SNOMED CT Hyperlipidemia (SNOMED CT :30260877 ) Name of Problem: Hyperlipidemia ; Recorder: KENYON CHAMBERS RN; Confirmation: Confirmed ; Classification: Medical ; Code: 64960944 ; Contributor System: Nusym TechnologyChart ; Last Updated: 04/10/2016 8:03 EDT ; Life Cycle Date: 08/13/2013 ; Life Cycle Status: Active ; Vocabulary: SNOMED CT Multiple renal cysts (SNOMED CT :908103145 ) Name of Problem: Multiple renal cysts ; Recorder: KENYON CHAMBERS RN; Confirmation: Confirmed ; Classification: Medical ; Code: 454454427 ; Contributor System: N[employer] TechnologyChart ; Last Updated: 04/10/2016 8:04 EDT ; Life Cycle Date: 08/13/2013 ; Life Cycle Status: Active ; Vocabulary: SNOMED CT Stented coronary artery (SNOMED CT :9447532663 ) Name of Problem: Stented coronary artery ; Recorder: KENYON CHAMBERS RN; Confirmation: Confirmed ; Classification: Medical ; Code: 8919162824 ; Contributor System: N[employer] TechnologyChart ; Last Updated: 04/10/2016 8:03 EDT ; Life Cycle Date: 08/13/2013 ; Life Cycle Status: Active ; Vocabulary: SNOMED CT Diagnoses(Active) Syncope/Near syncope Date: 03/16/2021 ; Diagnosis Type: Reason For Visit ; Confirmation: Complaint of ; Clinical Dx: Syncope/Near syncope ; Classification: Medical ; Clinical Service: Emergency medicine ; Code: PNED ; Probability: 0 ; Diagnosis Code: [id number] ED Height and Weight Height Source : Stated Height Entry Format : [place] Height, Feet : 5 ft(Converted to: 152 cm, 60 Inch) Height, Inches : 3 Inch(Converted to: 0 ft 3 Inch, 7.62 cm) Clinical Height : 160.02 cm Weight Source, ED : Critical estimated dosing weight Weight Entry Format : [place] Weight, Pounds : 158 lb Clinical Dosing Weight : 71.82 kg Body Surface Area (BSA) : 1.75 m2 Body Mass Index : 28 kg/m2 ([place]) [place] Body Weight (IBW) : 52.02 kg NICOLE CHEN RN - 03/16/2021 11:32 EDT documented in this encounter Plan of Treatment Not on file documented as of this encounter Visit Diagnoses Not on filedocumented in this encounter Care Teams Parking Meter Mechanic Relationship Specialty Start Date End Date Jay Howell MD [address] [place] [phone] PCP - General Emergency Medicine 11/12/23 documented as of this encounter
--- OUTSIDE RECORDS SUMMARY | 2025-08-16 09:11 | XMS_ITS | Encounter Summary ---
Author Organization [employer] ([place], [place], [place], [place]) Address [address] [place] [address] Care Team Providers Care Online Marketing Director Name Role Phone Jay Hwoell MD Primary Care Provider [phone] Encounter Details Date Type Department Care Team (Late st Contact Info) Description 06/13/2020 Transcribed Document [facility] [place] [address] [place] [address] ProviderJessie MD [address] [place] [address] Social History Tobacco Use Types Packs/Day Years [...] MD-CAR Basic Information PCP: Avtar Moeller MD Psychological Aide: Stephania Garcia MD Chief Complaint Chest pain History of Present Illness 79 year old female with history of CAD s/p CABG (1992) and subsequent stents in 2007 [id number], Paroxysmal atrial fibrillation and prior PE on [...] mg tab 2 mg 1 Tab, Oral, Tu[facility]Re[facility] warfarin 3 mg tab 3 mg 1 [...] History: Active Cataract Glaucoma Coronary artery disease (1197567500) Stented coronary artery (1855434624) High blood pressure (02791141) Hyperlipidemia (05480710) COPD (63867586) GERD - Gastro-esophageal reflux disease (2833444977) Multiple renal cysts (002154399) UTI - Urinary tract infection (3420303106) Arthritis (1167021) Diabetes mellitus (639184442) Emphysema (876963817) Apnea, sleep (362559380) Hx of pulmonary embolus (903985902) Chronic anticoagulation (853097483) Atrial fibrillation with RVR (1565366685) Family History: Cardiomyopathy Child Stroke Brother Heart attack Brother Sister Leukemia Child Cancer Father Mother Sister Coronary heart disease Child Procedure history: Cardiac Stent in 2010 at 70 Years. Coronary artery bypass graft (031307458) in 1992 at 52 Years. femur repair. Appendectomy (764109272). uterine suspension. Hysterectomy (222961129). back surgury. Cholecystectomy (58414182). Hip replacement (3386458772). cataract surgury. Physical Examination VS/Measurements Vitals Signs [...] of motion, Normal strength. Integumentary: Warm, Dry, [place]. Neurologic: Alert, Oriented. Psychiatric: Cooperative, Appropriate mood [...] 24 Hours) Radiology Results (Last 48 hours) [id number] -- 06/12/2020 23:54 CR Chest 1 Vw [...] 13) <0.015 (JUN 12) . [facility] IMPRESSION: Angiographically, the patient has severe [...] on filedocumented in this encounter Care Teams Online Marketing Director Relationship Specialty Start Date End Date Jay Howell MD [address] [place] [phone] PCP - General Emergency Medicine 11/12/23 documented as of this encounter
--- OUTSIDE RECORDS SUMMARY | 2025-08-16 09:11 | XMS_ITS | Encounter Summary ---
Author Organization [employer] ([place], [place], [place], [place]) Address [address] [place] [address] Care Team Providers Care Computer Terminal Operator Name Role Phone Jay Howell MD Primary Care Provider [phone] Encounter Details Date Type Department Care Team (Late st Contact Info) Description 12/21/2018 Transcribed Document [facility] [place] [address] ProviderJessie MD [address] [place] [address] Social History Tobacco Use Types Packs/Day Years Used Date Smoking Tobacco: Never Assessed Comments Unknown Sex and Gender Information Value Date Recorded Sex Assigned at Not on file Legal Sex Female 7:30 PM CDT Gender Identity Not on file Sexual Orientation Not on file documented as of this encounter Miscellaneous Notes * Cerner Conversion Note - Jessie Yuen MD - 12/21/2018 11:47 AM COMMANDER POLICE RESERVES [address] , [place], [place] [id number] Patient Copy Patient Information: Name: SKYLER MONTOYA Current Date: 12/21/2018 11:47:13 : 1940 Patient Address: [address] [place] [id number] Patient Attending Physician: FREDY YAÑEZ MD-CAR Primary Care Provider: TARA CHEN (REF), -MED Primary Care Provider Discharge Diagnosis: CAD (coronary artery disease); DM (diabetes mellitus); Exertional angina; HLD (hyperlipidemia); HTN (hypertension); Hx of CABG; DANTE (obstructive sleep apnea); Paroxysmal A-fib Weight on Admission: 158 lb, 0 oz Comment: Follow-up Instructions: With: Address: When: [facility] [address], [place] [address] Business (1) In 1 month 01/21/2019 With: Address: When: [facility] [address], [address] [place], [place] [id number] Business (1) Within 2 to 5 weeks [...] What foods can I eat? GrainsBreads, including Faroese, white, jie, wheat, raisin, rye, oatmeal, and Polish. Tortillas that are neither fried nor made with lard or trans fat. Low-fat rolls, including hotdog and hamburger buns and Guinean muffins. Biscuits. Muffins. Waffles. Pancakes. Light popcorn. Whole-grain cereals. Flatbread. [place] toast. Pretzels. Breadsticks. Rusks. Low-fat snacks. [...] including blue (fredo), Burke Armand, Brie, Nate, Bulgarian, Havarti, Greek, cheddar, Camembert, and [place]. Whole or 2% milk that is liquid, [...] that has suet, meat fat, or shortening. [place] butter, hydrogenated oils, palm oil, coconut oil, [...] can cause a heart attack (myocardial infarction, [place]). CAD is a leading cause of for [...] 12/25/2012 Document Revised: 03/10/2017 Document Reviewed: 02/04/2015 News[employer]rape Interactive Patient Education ? 2017 [employer]. Groin Site Care Refer to this [...] Document Reviewed: 11/05/2011 ExitCare? Patient Information ?2013 [employer]. Angiogram An angiogram, also called angiography, is [...] including vitamins, herbs, eye drops, creams, and bjam-ygp-okplxlv medicines. ??? Any problems you or family [...] 03/06/2014 Elsevier Interactive Patient Education ? 2017 [employer]. Medication Leaflets: valsartan (elin LILY foster) [...] valsartan; ?? if you are on a wvl-wckm-zwka; ?? if you are dehydrated; or ?? [...] may report side effects to FDA at 9-948-QPN-5663. What other drugs will affect valsartan? Tell [...] may interact with valsartan, including prescription and fxwu-suj-rkekdse medicines, vitamins, and herbal products. Not all [...] to ensure that the information provided by BIXI. ('Multum') is accurate, up-to-date, and complete, but no guarantee is made to that effect. Drug information contained herein may be time sensitive. J Kumar [employer] information has been compiled for use by healthcare practitioners and consumers in the [place] and therefore [employer] Kumar [employer] does not warrant that uses outside of the [place] are appropriate, unless specifically indicated otherwise. [employer]'s drug information does not endorse drugs, diagnose patients or recommend therapy. [employer]'s drug information is an informational resource designed [...] effective or appropriate for any given patient. [facility] does not assume any responsibility for any aspect of healthcare administered with the aid of information [facility] provides. The information contained herein is not intended to cover all possible uses, directions, precautions, warnings, drug interactions, allergic reactions, or adverse effects. If you have questions about the drugs you are taking, check with your doctor, nurse or pharmacist. Copyright 1550-8050 [facility]. Version: 16.05. Revision Date: 09/08/2016. hydralazine (bob [...] may report side effects to FDA at 5-793-MUM-2550. What other drugs will affect hydralazine? Tell your doctor about all your current medicines and any you start or stop using, especially: ? diazoxide (an injectable blood pressure medication); or ?? an MAO inhibitor--isocarboxazid, linezolid, methylene blue injection, phenelzine, rasagiline, selegiline, tranylcypromine, and others. This list is not complete. Other drugs may interact with hydralazine, including prescription and kmvm-sqs-hwvqibp medicines, vitamins, and herbal products. Not all [...] to ensure that the information provided by [employer]IXI. ('Multum') is accurate, up-to-date, and complete, but no guarantee is made to that effect. Drug information contained herein may be time sensitive. [employer] information has been compiled for use by healthcare practitioners and consumers in the [place] and therefore [employer] does not warrant that uses outside of the [place] are appropriate, unless specifically indicated otherwise. [employer]'s drug information does not endorse drugs, diagnose patients or recommend therapy. [employer] drug information is an informational resource designed [...] effective or appropriate for any given patient. [employer] does not assume any responsibility for any aspect of healthcare administered with the aid of information [employer] provides. The information contained herein is not intended to cover all possible uses, directions, precautions, warnings, drug interactions, allergic reactions, or adverse effects. If you have questions about the drugs you are taking, check with your doctor, nurse or pharmacist. Copyright 1074-9056 BIXI. Version: 5.01. Revision Date: 10/26/2017. amlodipine (am [...] may report side effects to FDA at 9-857-ARV-5672. What other drugs will affect amlodipine? Tell your doctor about all your current medicines and any you start or stop using, especially: ? nitroglycerin; ?? simvastatin (Zocor, Simcor, Vytorin); or ?? any other heart or blood pressure medications. This list is not complete. Other drugs may interact with amlodipine, including prescription and fugg-qjp-afjsqyf medicines, vitamins, and herbal products. Not all [...] to ensure that the information provided by BIXI. ('Multum') is accurate, up-to-date, and complete, but no guarantee is made to that effect. Drug information contained herein may be time sensitive. [employer] information has been compiled for use by healthcare practitioners and consumers in the [place] and therefore [employer] does not warrant that uses outside of the [place] are appropriate, unless specifically indicated otherwise. [employer] drug information does not endorse drugs, diagnose patients or recommend therapy. [employer] drug information is an informational resource designed [...] effective or appropriate for any given patient. [employer] does not assume any responsibility for any aspect of healthcare administered with the aid of information [employer] provides. The information contained herein is not intended to cover all possible uses, directions, precautions, warnings, drug interactions, allergic reactions, or adverse effects. If you have questions about the drugs you are taking, check with your doctor, nurse or pharmacist. Copyright 2854-2845 BIXI. Version: 14.. Revision Date: 01/24/2017. clopidogrel (kloe [...] may report side effects to FDA at 2-743-TEH-2786. What other drugs will affect clopidogrel? Certain other medicines may increase your risk of bleeding, including aspirin. Avoid taking aspirin unless your doctor tells you to. Tell your doctor about all your other medicines, especially: ? any other medicines to treat or prevent blood clots; ?? a stomach acid bread room hand such as omeprazole, Nexium, or Prilosec; ?? an antidepressant; ?? an opioid medication; ?? a blood thinner--warfarin, Coumadin, Jantoven; or ?? NSAIDs (nonsteroidal anti-inflammatory drugs)--ibuprofen (Advil, Motrin), naproxen (Aleve), celecoxib, diclofenac, indomethacin, meloxicam, and others. This list is not complete. Other drugs may affect clopidogrel, including prescription and vsdk-vna-xzsimcy medicines, vitamins, and herbal products. Not all [...] to ensure that the information provided by BIXI. ('Multum') is accurate, up-to-date, and complete, but no guarantee is made to that effect. Drug information contained herein may be time sensitive. [employer] information has been compiled for use by healthcare practitioners and consumers in the [place] and therefore [employer] Stack does not warrant that uses outside of the [place] are appropriate, unless specifically indicated otherwise. [employer]'s drug information does not endorse drugs, diagnose patients or recommend therapy. [employer] drug information is an informational resource designed [...] effective or appropriate for any given patient. [employer] does not assume any responsibility for any aspect of healthcare administered with the aid of information [employer] provides. The information contained herein is not intended to cover all possible uses, directions, precautions, warnings, drug interactions, allergic reactions, or adverse effects. If you have questions about the drugs you are taking, check with your doctor, nurse or pharmacist. Copyright 7758-4000 BIXI. Version: 15.01. Revision Date: 08/07/2018. ranolazine (ra [...] following drugs: ? clarithromycin; ?? nefazodone; ?? [place]'s wort; ?? antifungal medicine--itraconazole, ketoconazole; ?? HIV [...] may report side effects to FDA at 4-588-GWQ-4102. What other drugs will affect ranolazine? Many [...] interact with ranolazine. This includes prescription and lipv-cgt-msdzkhj medicines, vitamins, and herbal products. Give a [...] to ensure that the information provided by BIXI. ('Multum') is accurate, up-to-date, and complete, but no guarantee is made to that effect. Drug information contained herein may be time sensitive. [employer] information has been compiled for use by healthcare practitioners and consumers in the [place] and therefore [employer] does not warrant that uses outside of the [place] are appropriate, unless specifically indicated otherwise. [employer]'s drug information does not endorse drugs, diagnose patients or recommend therapy. [employer] drug information is an informational resource designed [...] effective or appropriate for any given patient. [employer] does not assume any responsibility for any aspect of healthcare administered with the aid of information [employer] provides. The information contained herein is not intended to cover all possible uses, directions, precautions, warnings, drug interactions, allergic reactions, or adverse effects. If you have questions about the drugs you are taking, check with your doctor, nurse or pharmacist. Copyright 3912-6147 BIXI. Version: 11.. Revision Date: 12/04/2015. CIGARETTE SMOKING: The facts are clear, cigarette smoking will shorten your life. Smoking can cause many illnesses along the way. As a healthcare provider, we recommend that you stop smoking. Assistance with quitting is available by contacting 5-711-ZEAU-NOW. This is a free resource providing counseling, [...] Be sure to sign up for the [facility] patient portal, which gives you 09/05 access to your medical information ??? including these discharge instructions ??? using your computer, smartphone, or tablet. Just go to sourceasy to get started. Questions? Call . [facility] would like to thank you for allowing us to assist you with your healthcare needs. MICHELE Skaggs JUDY D, (or truck sales representative) have received the above patient education materials/instructions and have verbalized understanding: Patient Signature _ Date/Time Patient Accounting/Finance Tutor Signature (if needed) Date/Time Clinician/Hospital Accounting/Finance Tutor Signature (if needed) Date/Time Electronically signed by [facility] Conversion Biophysics Scientist Cerner at 02/04/2023 2:20 PM CDT documented in this encounter Plan of Treatment Not on file documented as of this encounter Visit Diagnoses Not on filedocumented in this encounter Care Teams Computer Terminal Operator Relationship Specialty Start Date End Date Jay Howell MD [address] [place] [phone] PCP - General Emergency Medicine 11/12/23 documented as of this encounter
--- OUTSIDE RECORDS SUMMARY | 2025-08-16 09:12 | XMS_ITS | Encounter Summary ---
Author Organization [employer] ([place], [place], [place], [place]) Address [address] [place] [address] Care Team Providers Care Laborer Sawmill Name Role Phone Jay Howell MD Primary Care Provider [phone] Encounter Details Date Type Department Care Team (Late st Contact Info) Description 06/13/2020 Transcribed Document [facility] [place] [address] [place] [address] ProviderJessie MD [address] [place] [address] Social History Tobacco Use Types Packs/Day Years [...] 15:38 EDT Electronically signed by Sivan [facility] Conversion Blocking Machine Tender Cerner at 02/04/2023 2:14 PM CDT documented in this encounter Plan of Treatment Not on file documented as of this encounter Visit Diagnoses Not on filedocumented in this encounter Care Teams Laborer Sawmill Relationship Specialty Start Date End Date Jay Howell MD [address] [place] [phone] PCP - General Emergency Medicine 11/12/23 documented as of this encounter
--- OUTSIDE RECORDS SUMMARY | 2025-08-16 09:12 | XMS_ITS | Encounter Summary ---
Author Organization [employer] ([place], [place], [place], [place]) Address [address] [place] [address] Care Team Providers Care Retail Banking Manager Name Role Phone Jay Howell MD Primary Care Provider [phone] Encounter Details Date Type Department Care Team (Late st Contact Info) Description 06/13/2020 Transcribed Document [facility] [place] [place] [address] [place] [address] ProviderJessie MD [address] [place] [address] Social History Tobacco Use Types Packs/Day Years [...] PharmD student Luis Manuel Briones PharmD, BCPS [phone] Electronically signed by [facility] Conversion Wood Heel Back Liner Cerner at 02/04/2023 2:11 PM CDT documented in this encounter Plan of Treatment Not on file documented as of this encounter Visit Diagnoses Not on filedocumented in this encounter Care Teams Retail Banking Manager Relationship Specialty Start Date End Date Jay Howell MD [address] [place] [phone] PCP - General Emergency Medicine 11/12/23 documented as of this encounter
--- OUTSIDE RECORDS SUMMARY | 2025-08-16 09:12 | XMS_ITS | Encounter Summary ---
Author Organization [place] [address] Care Team Providers Care Associate Technician Name Role Phone No Pcp, Per Patient Primary Care Provider Evelyne prabhakar Reason for Visit * Reason Onset Date Comments Appointment Needed 06/28/2025 Encounter Details Date Type Department Care Team (Late st Contact Info) Description 06/28/2025 Telephone [facility] [address] [place] [address] Sukh Garner R, DO [address] [place], [place] [id number] Appointment Needed Social History Tobacco Use Types Packs/Day Years Used Date Smoking Tobacco: Former Cigarettes Q uit: 1991 Passive Smoke Exposure: Past Smokeless Tobacco: Never Alcohol Use Standard Drinks/Week Comments Not Currently 0 (1 standard drink = 0.6 oz pur e alcohol) [facility] Utilities Answer Date Recorded In the past 12 months has [employer] electric, gas, oil, or water company threatened to shut off services in your home? No 06/23/2025 Overall Financial Resource Strain (CARDIA) Answe r Date Recorded How hard is it for you to pa y for the very basics like food, housing, medical care, and heating? Not very hard 06/23/2025 PHQ-2 Answer Date Recorded PHQ-2 Total Score 0 06/23/2025 [facility] [place] of Occupat ional Health - Occupational Stress [...] to get more. Never true 06/23/2025 [facility] IP Transportation Answer D ate Recorded [...] book for HFU until August Appointment location: [facility] Call back number: [phone] (sister, goes by Sarah) documented in this encounter Plan of Treatment Upcoming Encounters Date Type Department Care Team (Late st Contact Info) Description 08/19/2025 2:00 PM EST Office Visit [facility] [address] [place] [address] Drive [address] [place] [address] Vargas Wolf MD [address] [place] [address] [place] [address] documented as of this encounter Visit Diagnoses Not on filedocumented in this encounter Additional Health Concerns Infection Onset Date Last Indicated Resolved Time ESBL organism Comment:ESBL urine: 05/23, 06/1205/23/2025 06/12/2025 Assessment Noted Time A fall risk assessment has been complete d for the patient 02/08/2025 11:32 AM EDT documented as of this encounter Care Teams Associate Technician Relationship Specialty Start Date End Date No Pcp, Per Patient PCP - General 06/04/24 documented as of this encounter
--- OUTSIDE RECORDS SUMMARY | 2025-08-16 09:12 | XMS_ITS | Encounter Summary ---
Author Organization [employer] ([place], [place], [place], [place]) Address [address] [place] [address] Care Team Providers Care Liquor Stores And Agencies Supervisor Name Role Phone Jay Howell MD Primary Care Provider [phone] Encounter Details Date Type Department Care Team (Late st Contact Info) Description 06/13/2020 Transcribed Document [facility] [place] [address] [place] [address] ProviderJessie MD [address] [place] [address] Social History Tobacco Use Types Packs/Day Years [...] 06/13/2020 9:00 EDT by Joya Amaya [facility] Phone Call for Consults Consult Phone Call/Page Attempt : First call Consult Reason : chest pain Physician Requesting Consult : SMILEY ZAMORA MD Physician Requested for Consult : FREDY YAÑEZ MD-CAR Provider Service Notified Name : Cardiology Physician Covering for Consult : FREDY YAÑEZ MD-CAR Date and Time Call Returned : 06/13/2020 9:31 EDT Joya Amaya [facility] - 06/13/2020 10:00 EDT documented in this encounter Plan of Treatment Not on file documented as of this encounter Visit Diagnoses Not on filedocumented in this encounter Care Teams Liquor Stores And Agencies Supervisor Relationship Specialty Start Date End Date Jay Howell MD [address] [place] [phone] PCP - General Emergency Medicine 11/12/23 documented as of this encounter
--- OUTSIDE RECORDS SUMMARY | 2025-08-16 09:12 | XMS_ITS | Encounter Summary ---
Author Organization [employer] ([place], [place], [place], [place]) Address [address] [place] [address] Care Team Providers Care Cold Strip Roller Name Role Phone Jay Howell MD Primary Care Provider [phone] Encounter Details Date Type Department Care Team (Late st Contact Info) Description 06/13/2020 Transcribed Document [facility] [place] [address] [place] [address] ProviderJessie MD [address] [place] [address] Social History Tobacco Use Types Packs/Day Years [...] filedocumented in this encounter Care Teams Cold Strip Roller Relationship Specialty Start Date End Date Jay Howell MD [address] [place] [phone] PCP - General Emergency Medicine 11/12/23 documented as of this encounter
--- OUTSIDE RECORDS SUMMARY | 2025-08-16 09:12 | XMS_ITS | Encounter Summary ---
Author Organization [employer] ([place], [place], [place], [place]) Address [address] [place] [address] Care Team Providers Care Wastewater Treatment Plant Attendant Name Role Phone Jay Howell MD Primary Care Provider [phone] Encounter Details Date Type Department Care Team (Late st Contact Info) Description 06/13/2020 Transcribed Document [facility] [place] [address] [place] [address] ProviderJessie MD [address] [place] [address] Social History Tobacco Use Types Packs/Day Years [...] Electronically signed by Sivan [facility] Conversion Dental Assistant Instructor Cerner at 02/04/2023 2:19 PM CDT documented in this encounter Plan of Treatment Not on file documented as of this encounter Visit Diagnoses Not on filedocumented in this encounter Care Teams Wastewater Treatment Plant Attendant Relationship Specialty Start Date End Date Jay Howell MD [address] [place] [phone] PCP - General Emergency Medicine 11/12/23 documented as of this encounter
--- OUTSIDE RECORDS SUMMARY | 2025-08-16 09:14 | XMS_ITS | Encounter Summary ---
Author Organization [employer] ([place], [place], [place], [place]) Address [address] [place] [address] Care Team Providers Care Seater Assembler Name Role Phone Jay Howell MD Primary Care Provider [phone] Encounter Details Date Type Department Care Team (Late st Contact Info) Description 06/13/2020 Transcribed Document [facility] [place] [address] [place] [address] ProviderJessie MD [address] [place] [address] Social History Tobacco Use Types Packs/Day Years [...] on filedocumented in this encounter Care Teams Seater Assembler Relationship Specialty Start Date End Date Jay Howell MD [address] [place] [phone] PCP - General Emergency Medicine 11/12/23 documented as of this encounter
--- OUTSIDE RECORDS SUMMARY | 2025-08-16 09:14 | XMS_ITS | Encounter Summary ---
Author Organization [employer] ([place], [place], [place], [place]) Address [address] [place] [address] Care Team Providers Care Post Closer Name Role Phone Jay Howell MD Primary Care Provider [phone] Encounter Details Date Type Department Care Team (Late st Contact Info) Description 08/23/2020 Transcribed Document [facility] [place] [address] [place] [address] ProviderJessie MD [address] [place] [address] Social History Tobacco Use Types [...] Jessie Yuen MD - 08/23/2020 1:05 AM RESIDENTIAL MENTAL HEALTH WORKER [facility] [place], [place] [id number] SKYLER MONTOYA :1940 Visit Time:08/22/2020 Your Visit [...] SWELLING Where: [address] [place] [address]- Business (1) Allergies Macrodantin morphine (rash, rash) nitrofurantoin (blisters, blisters) Immunizations This Visit No Immunizations Found Medications What How Much When Instructions Next Dose acetaminophen-hydrocodone (Dimock 7.5 mg-325 mg oral tablet) 1 Tablet(s) [...] range between ( 0.0 and 7.0 ) [place] #: 0.71 K/uL -- Normal range between ( 0.16 and 1.00 ) Eos #: 0.15 x10(3)/uL -- Normal range between ( 0.00 and 0.80 ) [place] %: 10.1 % -- Normal range between [...] these instructions at home: Medicines ??? Take yddx-fmg-wbofwsr and prescription medicines only as told by [...] and water are not available, use hand solution analyst. ??? Change your dressing and packing as [...] 12/25/2012 Document Revised: 09/03/2019 Document Reviewed: 09/03/2019 [employer] Patient Education ?? 2020 [employer] Skin Abscess A skin abscess is [...] these instructions at home: Medicines ??? Take gkid-cio-gansskv and prescription medicines only as told by [...] and water are not available, use hand solution analyst. ??? Check your abscess every day for [...] 07/13/2006 Document Revised: 01/24/2020 Document Reviewed: 11/16/2018 [employer] Patient Education ?? 2020 [employer]. Emergency Awareness and Preventative Care STROKE is [...] Assistance with quitting is available by contacting 3-991-ZERU-NOW. This is a free resource providing counseling, [...] was given the opportunity to ask questions. Patient/Skiver Welt End Name: Patient/Skiver Welt End Signature: Relationship to Patient: Clinician/Hospital Skiver Welt End Signature: Please Provide a Telephone Number Where You Can Be Reached: Is it Permissible To Leave a Message? Date: documented in this encounter Plan of Treatment Not on file documented as of this encounter Visit Diagnoses Not on filedocumented in this encounter Care Teams Post Closer Relationship Specialty Start Date End Date Jay Howell MD [address] [place] [phone] PCP - General Emergency Medicine 11/12/23 documented as of this encounter
--- OUTSIDE RECORDS SUMMARY | 2025-08-16 09:14 | XMS_ITS | Encounter Summary ---
Author Organization [facility] Address [address] [place] [address] Care Team Providers Care Floral Merchandiser Name Role Phone Jay Howell MD Primary Care Provider Encounter Details Date Type Department Care Team (Late st Contact Info) Description 01/20/2024 Ophth Exam [facility] [address] [place] [address] Joselito Garza MD [address] [place] [address] Social History Tobacco Use Types [...] place to sleep or slept in a chcf (including now)? No 01/23/2024 CAGE ASSESSMENT Answer [...] drink first t kathleen in the morning (EYE-DELI/BAKERY ASSOCIATE) to steady your nerves or to get rid of a hangover? 0 01/21/2024 CAGE Questionnaire Score 0 024 Utilities Answer Date Recorded In the past 12 months has th e [employer], gas, oil, or water company threatened to [...] documented as of this encounter Care Teams Floral Merchandiser Relationship Specialty Start Date End Date Jay Howell MD [address] [place] [address] PCP - General 03/08/21 documented as of this encounter
--- OUTSIDE RECORDS SUMMARY | 2025-08-16 09:14 | XMS_ITS | Encounter Summary ---
Author Organization [employer] ([place], [place], [place], [place]) Address [address] [place] [address] Care Team Providers Care Director Of The Biophysics Facility Name Role Phone Jay Howell MD Primary Care Provider [phone] Encounter Details Date Type Department Care Team (Late st Contact Info) Description 06/14/2020 Transcribed Document [facility] [place] [address] [place] [address] ProviderJessie MD [address] [place] [address] Social History Tobacco Use Types Packs/Day Years [...] : Yes Discharge To Care Management : Home/Residential/Mcfp or Self Care -01 JENAE COREY CSW - 06/14/2020 8:53 EDT Final Narrative Note Final Narrative Note : Pt declined services. JENAE COREY CSW - 06/14/2020 8:53 EDT Electronically signed by [facility], [facility] Conversion Donor Center Technician Cerner at 02/04/2023 2:06 PM CDT documented in this encounter Plan of Treatment Not on file documented as of this encounter Visit Diagnoses Not on filedocumented in this encounter Care Teams Director Of The Biophysics Facility Relationship Specialty Start Date End Date Jay Howell MD [address] [place] [phone] PCP - General Emergency Medicine 11/12/23 documented as of this encounter
--- OUTSIDE RECORDS SUMMARY | 2025-08-16 09:14 | XMS_ITS | Encounter Summary ---
Author Organization [employer] ([place], [place], [place], [place]) Address [address] [place] [address] Care Team Providers Care Javascript Software Engineer Name Role Phone Jay Howell MD Primary Care Provider [phone] Encounter Details Date Type Department Care Team (Late st Contact Info) Description 06/13/2020 Transcribed Document [facility] [place] [address] [place] [address] ProviderJessie MD [address] [place] [address] Social History Tobacco Use Types Packs/Day Years [...] filedocumented in this encounter Care Teams Javascript Software Engineer Relationship Specialty Start Date End Date Jay Howell MD [address] [place] [phone] PCP - General Emergency Medicine 11/12/23 documented as of this encounter
--- OUTSIDE RECORDS SUMMARY | 2025-08-16 09:14 | XMS_ITS | Encounter Summary ---
Author Organization [facility] Address [address] [place] [address] Care Team Providers Care Test Borer Helper Name Role Phone Jay Howell MD Primary Care Provider [phone] Reason for Visit * Reason Onset Date Comments Returned Call 07/02/2025 Encounter Details Date Type Department Care Team (Late st Contact Info) Description 07/02/2025 Telephone [facility] [address] [place] [address] Returned Call Social History Tobacco [...] drink first t kathleen in the morning (EYE-PAINTER TUMBLING BARREL) to steady your nerves or to get [...] Clinical Concern/Question Reason for Call: Sarah with [facility] in [place] called, saying that pt needs a STAT appt for a void trail. They have done 2 but she failed both of them. I explained we need a referral, but she is saying they cannot send us a referral or records until we send them a request for the referral and records. Their fax for medical records is [phone]. Please give her a call back. Thanks! Best contact number: Other: [phone] Optimal time of day to reach caller: ANYTIME Additional comments/information from caller: None Note: Please do not reply to this message. Follow-up communication and further actions as a result of this message need to be communicated with the patient directly, if the patient is not active onMyChart. If the patient is active on MyChart, they will receive notification of the communication/outcome via FIGS. documented in this encounter Plan of Treatment [...] as of this encounter Care Teams Test Borer Helper Relationship Specialty Start Date End Date Jay Howell MD [address] [place], [place] [address] PCP - General 03/08/21 documented as of this encounter
--- OUTSIDE RECORDS SUMMARY | 2025-08-16 09:14 | XMS_ITS | Encounter Summary ---
Author Organization [employer] ([place], [place], [place], [place]) Address [address] [place] [address] Care Team Providers Care Rn Visiting Name Role Phone Jay Howell MD Primary Care Provider [phone] Encounter Details Date Type Department Care Team (Late st Contact Info) Description 08/22/2020 Transcribed Document [facility] Family Medicine [address] [place] [address] ProviderJessie MD [address] [place] [address] Social History Tobacco Use Types Packs/Day Years Used Date Smoking Tobacco: Never Assessed Comments Unknown Sex and Gender Information Value Date Recorded Sex Assigned at Not on file Legal Sex Female 7:30 PM CDT Gender Identity Not on file Sexual Orientation Not on file documented as of this encounter Miscellaneous Notes * Cerner Conversion Note - Jessie Yuen MD - 08/22/2020 8:49 PM NURSE WOUND CARE ED Triage Entered On: 08/22/2020 20:57 EST [...] : 3 - Urgent Tracking Group : [facility] ED LUCINDA FOFANA RN - 08/22/2020 [...] 20:57:39 EST) Problems(Active) Apnea, sleep (SNOMED CT :707103184 ) Name of Problem: Apnea, sleep ; Recorder: JUAN LUIS GIL RN; Confirmation: Confirmed ; Classification: Medical ; Code: [id number] ; Contributor System: PowerChart ; Last Updated: 11/12/2014 10:12 EST ; Life Cycle Date: 11/12/2014 ; Life Cycle Status: Active ; Vocabulary: SNOMED CT Arthritis (SNOMED CT :8168480 ) Name of Problem: Arthritis ; Recorder: KENYON CHAMBERS RN; Confirmation: Confirmed ; Classification: Medical ; Code: 9356303 ; Contributor System: PowerChart ; Last Updated: 04/10/2016 8:04 EDT ; Life Cycle Date: 08/13/2013 ; Life Cycle Status: Active ; Vocabulary: SNOMED CT Atrial fibrillation with RVR (SNOMED CT :1601471543 ) Name of Problem: Atrial fibrillation with RVR ; Recorder: SANG RICO APRN; Confirmation: Confirmed ; Classification: Medical ; Code: 8990504227 ; Contributor System: PowerChart ; Last Updated: 04/10/2016 8:05 EDT ; Life Cycle Date: 04/10/2016 ; Life Cycle Status: Active ; Responsible Provider: SANG RICO APRN; Vocabulary: SNOMED CT Blood clot (SNOMED CT :933657389 ) Name of Problem: Blood clot ; Recorder: KENYON CHAMBERS RN; Confirmation: Confirmed ; Classification: Patient Stated ; Code: 165929067 ; Contributor System: PowerChart ; Last Updated: [...] Vocabulary: Patient Care Chest pain (SNOMED CT :27886676 ) Name of Problem: Chest pain ; Recorder: SANG RICO APRN; Confirmation: Complaint of ; Classification: Medical ; Code: 20780229 ; Contributor System: PowerChart ; Last Updated: 04/10/2016 8:05 EDT ; Life Cycle Status: Active ; Responsible Provider: SANG RICO APRN; Vocabulary: SNOMED CT Chronic anticoagulation (SNOMED CT :091894901 ) Name of Problem: Chronic anticoagulation ; Recorder: SANG RICO APRN; Confirmation: Confirmed ; Classification: Medical ; Code: 728569909 ; Contributor System: PowerChart ; Last Updated: 04/10/2016 8:05 EDT ; Life Cycle Date: 04/10/2016 ; Life Cycle Status: Active ; Responsible Provider: SANG RICO APRN; Vocabulary: SNOMED CT Clotting disorder (SNOMED CT :246381418 ) Name of Problem: Clotting disorder ; Recorder: KENYON CHAMBERS RN; Confirmation: Confirmed ; Classification: Patient Stated ; Code: 154718554 ; Contributor System: PowerChart ; Last Updated: 03/28/2014 19:29 EDT ; Life Cycle Date: 08/13/2013 ; Life Cycle Status: Active ; Vocabulary: SNOMED CT COPD (SNOMED CT :07112156 ) Name of Problem: COPD ; Recorder: KENYON CHAMBERS RN; Confirmation: Confirmed ; Classification: Medical ; Code: 87829877 ; Contributor System: [employer] GroupChart ; Last Updated: 04/10/2016 8:03 EDT ; Life Cycle Date: 08/13/2013 ; Life Cycle Status: Active ; Vocabulary: SNOMED CT Coronary artery disease (SNOMED CT :5385643625 ) Name of Problem: Coronary artery disease ; Recorder: KENYON CHAMBERS RN; Confirmation: Confirmed ; Classification: Medical ; Code: 9482363872 ; Contributor System: PowerChart ; Last Updated: 04/10/2016 8:03 EDT ; Life Cycle Date: 08/13/2013 ; Life Cycle Status: Active ; Vocabulary: SNOMED CT Diabetes mellitus (SNOMED CT :002132541 ) Name of Problem: Diabetes mellitus ; Recorder: KENYON CHAMBERS RN; Confirmation: Confirmed ; Classification: Medical ; Code: 995141213 ; Contributor System: PowerChart ; Last Updated: 04/10/2016 8:04 EDT ; Life Cycle Date: 08/13/2013 ; Life Cycle Status: Active ; Vocabulary: SNOMED CT Emphysema (SNOMED CT :030630123 ) Name of Problem: Emphysema ; Recorder: JUAN LUIS GIL RN; Confirmation: Confirmed ; Classification: Medical ; Code: 505240492 ; Contributor System: PowerChart ; Last Updated: 11/12/2014 10:11 EST ; Life Cycle Date: 11/12/2014 ; Life Cycle Status: Active ; Vocabulary: SNOMED CT GERD - Gastro-esophageal reflux disease (SNOMED CT :8357243626 ) Name of Problem: GERD - Gastro-esophageal reflux disease ; Recorder: KENYON CHAMBERS RN; Confirmation: Confirmed ; Classification: Medical ; Code: 9029331337 ; Contributor System: [employer] ; Last Updated: 04/10/2016 8:03 EDT [...] Patient Care High blood pressure (SNOMED CT :44543536 ) Name of Problem: High blood pressure ; Recorder: KENYON CHAMBERS RN; Confirmation: Confirmed ; Classification: Medical ; Code: 68752861 ; Contributor System: PowerChart ; Last Updated: 04/10/2016 8:03 EDT ; Life Cycle Date: 08/13/2013 ; Life Cycle Status: Active ; Vocabulary: SNOMED CT History of obstructive sleep apnea (IMO :18419802 ) Name of Problem: History of obstructive sleep apnea ; Recorder: SYSTEM, SYSTEM; Confirmation: Confirmed ; Classification: Medical ; Code: 11481555 ; Last Updated: 12/20/2018 12:01 EST ; Life Cycle Date: 12/20/2018 ; Life Cycle Status: Active ; Vocabulary: IMO Hx of pulmonary embolus (SNOMED CT :125588834 ) Name of Problem: Hx of pulmonary embolus ; Recorder: SANG RICO APRN; Confirmation: Confirmed ; Classification: Medical ; Code: 282579814 ; Contributor System: [employer] ; Last Updated: 04/10/2016 8:05 EDT ; Life Cycle Date: 04/10/2016 ; Life Cycle Status: Active ; Responsible Provider: SANG RICO APRN; Vocabulary: SNOMED CT Hyperlipidemia (SNOMED CT :39214990 ) Name of Problem: Hyperlipidemia ; Recorder: KENYON CHAMBERS RN; Confirmation: Confirmed ; Classification: Medical ; Code: 24172508 ; Contributor System: [employer] ; Last Updated: 04/10/2016 8:03 EDT ; Life Cycle Date: 08/13/2013 ; Life Cycle Status: Active ; Vocabulary: SNOMED CT Multiple renal cysts (SNOMED CT :795086309 ) Name of Problem: Multiple renal cysts ; Recorder: KENYON CHAMBERS RN; Confirmation: Confirmed ; Classification: Medical ; Code: 038385983 ; Contributor System: [employer] ; Last Updated: 04/10/2016 8:04 EDT ; Life Cycle Date: 08/13/2013 ; Life Cycle Status: Active ; Vocabulary: SNOMED CT Stented coronary artery (SNOMED CT :6665574067 ) Name of Problem: Stented coronary artery ; Recorder: KENYON CHAMBERS RN; Confirmation: Confirmed ; Classification: Medical ; Code: 5065371509 ; Contributor System: [employer] ; Last Updated: 04/10/2016 8:03 EDT ; Life Cycle Date: 08/13/2013 ; Life Cycle Status: Active ; Vocabulary: SNOMED CT UTI - Urinary tract infection (SNOMED CT :8001479063 ) Name of Problem: UTI - Urinary tract infection ; Recorder: KENYON CHAMBERS RN; Confirmation: Confirmed ; Classification: Medical ; Code: 5418808967 ; Contributor System: [employer] ; Last Updated: 04/10/2016 8:04 EDT ; Life Cycle Date: 08/13/2013 ; Life Cycle Status: Active ; Vocabulary: SNOMED CT Diagnoses(Active) Leg pain-swelling Date: 08/22/2020 ; Diagnosis Type: Reason For Visit ; Confirmation: Complaint of ; Clinical Dx: Leg pain-swelling ; Classification: Medical ; Clinical Service: Emergency medicine ; Code: PNED ; Probability: 0 ; Diagnosis Code: [id number] ED Height and Weight Height Source : Stated Height Entry Format : [place] Height, Feet : 5 ft(Converted to: 152 cm, 60 Inch) Height, Inches : 3 Inch(Converted to: 0 ft 3 Inch, 7.62 cm) Clinical Height : 160.02 cm Weight Source, ED : Critical estimated dosing weight Weight Entry Format : [place] Weight, Pounds : 154 lb Clinical Dosing Weight : 70 kg Body Surface Area (BSA) : 1.73 m2 Body Mass Index : 27.3 kg/m2 (HI) [place] Body Weight (IBW) : 52.02 kg LUCINDA FOFANA RN - 08/22/2020 20:52 EST Electronically signed by [facility], [facility] Conversion Buckler And Lacer Cerner at 02/04/2023 2:09 PM CDT documented in this encounter Plan of Treatment Not on file documented as of this encounter Visit Diagnoses Not on filedocumented in this encounter Care Teams Rn Visiting Relationship Specialty Start Date End Date Jay Howell MD [address] [place] [phone] PCP - General Emergency Medicine 11/12/23 documented as of this encounter
--- OUTSIDE RECORDS SUMMARY | 2025-08-16 09:14 | XMS_ITS | Encounter Summary ---
Author Organization [employer] ([place], [place], [place], [place]) Address [address] [place] [address] Care Team Providers Care Systems Analyst Name Role Phone Jay Howell MD Primary Care Provider [phone] Encounter Details Date Type Department Care Team (Late st Contact Info) Description 08/23/2020 Transcribed Document [facility] [place] Family Medicine [address] [place] [address] ProviderJessie MD [address] [place] [address] Social History Tobacco Use Types Packs/Day Years Used Date Smoking Tobacco: Never Assessed Comments Unknown Sex and Gender Information Value Date Recorded Sex Assigned at Not on file Legal Sex Female 7:30 PM CDT Gender Identity Not on file Sexual Orientation Not on file documented as of this encounter Miscellaneous Notes * Cerner Conversion Note - Jessie Yuen MD - 08/23/2020 1:35 AM RECREATION SUPERVISOR ED Discharge Entered On: 08/23/2020 2:08 EST [...] 08/23/2020 2:07 EST Electronically signed by Sivan, [facility] Conversion Personal Financial Representative Cerner at 02/04/2023 2:21 PM CDT documented in this encounter Plan of Treatment Not on file documented as of this encounter Visit Diagnoses Not on filedocumented in this encounter Care Teams Systems Analyst Relationship Specialty Start Date End Date Jay Howell MD [address] [place] [phone] PCP - General Emergency Medicine 11/12/23 documented as of this encounter
--- OUTSIDE RECORDS SUMMARY | 2025-08-16 09:14 | XMS_ITS | Encounter Summary ---
Author Organization [email or web address] ([place], [place], [place], [place]) Address [address] [place] [address] Care Team Providers Care Associate Programmer Name Role Phone Jay Howell MD Primary Care Provider [phone] Encounter Details Date Type Department Care Team (Late st Contact Info) Description 08/23/2020 Transcribed Document [facility] [place] [address] [place] [address] ProviderJessie MD [address] [place] [address] Social History Tobacco Use Types Packs/Day Years Used Date Smoking Tobacco: Never Assessed Comments Unknown Sex and Gender Information Value Date Recorded Sex Assigned at Not on file Legal Sex Female 7:30 PM CDT Gender Identity Not on file Sexual Orientation Not on file documented as of this encounter Miscellaneous Notes * Cerner Conversion Note - Historical ProviderMD - 08/23/2020 1:04 AM LASER BEAM MACHINE OPERATOR Electronically signed by [facility], [facility] Conversion Food Order Delivery Runner Cerner at 02/04/2023 1:59 PM CDT documented in this encounter Plan of Treatment Not on file documented as of this encounter Visit Diagnoses Not on filedocumented in this encounter Care Teams Associate Programmer Relationship Specialty Start Date End Date Jay Howell MD [address] [place] [phone] PCP - General Emergency Medicine 11/12/23 documented as of this encounter
--- OUTSIDE RECORDS SUMMARY | 2025-08-16 09:14 | XMS_ITS | Encounter Summary ---
Author Organization [employer] ([place], [place], [place], [place]) Address [address] [place] [address] Care Team Providers Care Manager Urology Name Role Phone Jay Howell MD Primary Care Provider [phone] Encounter Details Date Type Department Care Team (Late st Contact Info) Description 08/22/2020 Transcribed Document [facility] [place] [address] [place] [address] ProviderJessie MD [address] [place] [address] Social History Tobacco Use Types Packs/Day Years Used Date Smoking Tobacco: Never Assessed Comments Unknown Sex and Gender Information Value Date Recorded Sex Assigned at Not on file Legal Sex Female 7:30 PM CDT Gender Identity Not on file Sexual Orientation Not on file documented as of this encounter Miscellaneous Notes * Cerner Conversion Note - Jessie ProviderMD - 08/22/2020 10:42 PM RETAIL PLANNER Pain Assessment Entered On: 08/23/2020 1:08 EST [...] filedocumented in this encounter Care Teams Manager Urology Relationship Specialty Start Date End Date Jay Howell MD [address] [place] [phone] PCP - General Emergency Medicine 11/12/23 documented as of this encounter
--- OUTSIDE RECORDS SUMMARY | 2025-08-16 09:14 | XMS_ITS | Encounter Summary ---
Author Organization [employer] ([place], [place], [place], [place]) Address [address] [place] [address] Care Team Providers Care Head Of Cytogenetics Name Role Phone Jay Howell MD Primary Care Provider [phone] Encounter Details Date Type Department Care Team (Late st Contact Info) Description 06/13/2020 Transcribed Document [facility] [place] [address] [place] [address] ProviderJessie MD [address] [place] [address] Social History Tobacco Use Types Packs/Day Years [...] 06/13/2020 6:12 EDT Electronically signed by [facility]ivan [facility] Conversion Conversion Worker Cerner at 02/04/2023 2:05 PM CDT documented in this encounter Plan of Treatment Not on file documented as of this encounter Visit Diagnoses Not on filedocumented in this encounter Care Teams Head Of Cytogenetics Relationship Specialty Start Date End Date Jay Howell MD [address] [place] [phone] PCP - General Emergency Medicine 11/12/23 documented as of this encounter
--- OUTSIDE RECORDS SUMMARY | 2025-08-16 09:14 | XMS_ITS | Encounter Summary ---
Author Organization [employer] ([place], [place], [place], [place]) Address [address] [place] [address] Care Team Providers Care Hydroelectric Machinery Mechanic Name Role Phone Jay Howell MD Primary Care Provider [phone] Encounter Details Date Type Department Care Team (Late st Contact Info) Description 06/13/2020 Transcribed Document [facility] Family Medicine [address] [place] [address] Jessie Yuen MD [address] [place] [address] Social History Tobacco Use Types Packs/Day Years [...] Chart was reviewed. Time spent, 55 minutes. /[id number] MD MCKAY Priest/NABOR / MCKAY / BONILLAL CC: Dr. Avtar Moeller Electronically signed by [facility], [facility] Conversion Maritime Guard Cerner at 02/04/2023 2:09 PM CDT documented in this encounter Plan of Treatment Not on file documented as of this encounter Visit Diagnoses Not on filedocumented in this encounter Care Teams Hydroelectric Machinery Mechanic Relationship Specialty Start Date End Date Jay Howell MD [address] [place] [phone] PCP - General Emergency Medicine 11/12/23 documented as of this encounter
--- OUTSIDE RECORDS SUMMARY | 2025-08-16 09:14 | XMS_ITS | Encounter Summary ---
Author Organization [employer] ([place], [place], [place]) Address [address] [place] [address] Care Team Providers Care Information Security Associate Name Role Phone Jay Howell MD Primary Care Provider [phone] Encounter Details Date Type Department Care Team (Late st Contact Info) Description 03/03/2021 Transcribed Document [facility] [place] Family [place] [facility] [place] [address] ProviderJessie MD [address] [place], [place] [id number] Social History Tobacco Use Types Packs/Day Years [...] - Non - Urgent Tracking Group : [facility] ED Viri Gonsales RN - 03/03/2021 [...] 16:07:23 EDT) Problems(Active) Apnea, sleep (SNOMED CT :381181561 ) Name of Problem: Apnea, sleep ; Recorder: JUAN LUIS GIL RN; Confirmation: Confirmed ; Classification: Medical ; Code: [id number] ; Contributor System: PowerChart ; Last Updated: 11/12/2014 10:12 EST ; Life Cycle Date: 11/12/2014 ; Life Cycle Status: Active ; Vocabulary: SNOMED CT Arthritis (SNOMED CT :6464394 ) Name of Problem: Arthritis ; Recorder: KENYON CHAMBERS RN; Confirmation: Confirmed ; Classification: Medical ; Code: [id number] ; Contributor System: PowerChart ; Last Updated: 04/10/2016 8:04 EDT ; Life Cycle Date: 08/13/2013 ; Life Cycle Status: Active ; Vocabulary: SNOMED CT Atrial fibrillation with RVR (SNOMED CT :6289404255 ) Name of Problem: Atrial fibrillation with RVR ; Recorder: SANG RICO APRN; Confirmation: Confirmed ; Classification: Medical ; Code: [id number] ; Contributor System: PowerChart ; Last Updated: 04/10/2016 8:05 EDT ; Life Cycle Date: 04/10/2016 ; Life Cycle Status: Active ; Responsible Provider: SANG RICO APRN; Vocabulary: SNOMED CT Blood clot (SNOMED CT :267654291 ) Name of Problem: Blood clot ; Recorder: KENYON CHAMBERS RN; Confirmation: Confirmed ; Classification: Patient Stated ; Code: [id number] ; Contributor System: PowerChart ; Last Updated: [...] Vocabulary: Patient Care Chest pain (SNOMED CT :88553858 ) Name of Problem: Chest pain ; Recorder: SANG RICO APRN; Confirmation: Complaint of ; Classification: Medical ; Code: 47774279 ; Contributor System: PowerChart ; Last Updated: 04/10/2016 8:05 EDT ; Life Cycle Status: Active ; Responsible Provider: SANG RICO APRN; Vocabulary: SNOMED CT Chronic anticoagulation (SNOMED CT :922434587 ) Name of Problem: Chronic anticoagulation ; Recorder: SANG RICO APRN; Confirmation: Confirmed ; Classification: Medical ; Code: 953600882 ; Contributor System: PowerChart ; Last Updated: 04/10/2016 8:05 EDT ; Life Cycle Date: 04/10/2016 ; Life Cycle Status: Active ; Responsible Provider: SANG RICO APRN; Vocabulary: SNOMED CT Clotting disorder (SNOMED CT :673129690 ) Name of Problem: Clotting disorder ; Recorder: KENYON CHAMBERS RN; Confirmation: Confirmed ; Classification: Patient Stated ; Code: 449193732 ; Contributor System: PowerChart ; Last Updated: 03/28/2014 19:29 EDT ; Life Cycle Date: 08/13/2013 ; Life Cycle Status: Active ; Vocabulary: SNOMED CT COPD (SNOMED CT :65864424 ) Name of Problem: COPD ; Recorder: KENYON CHAMBERS RN; Confirmation: Confirmed ; Classification: Medical ; Code: 03530618 ; Contributor System: PowerChart ; Last Updated: 04/10/2016 8:03 EDT ; Life Cycle Date: 08/13/2013 ; Life Cycle Status: Active ; Vocabulary: SNOMED CT Coronary artery disease (SNOMED CT :5142594837 ) Name of Problem: Coronary artery disease ; Recorder: KENYON CHAMBERS RN; Confirmation: Confirmed ; Classification: Medical ; Code: 1966670571 ; Contributor System: PowerChart ; Last Updated: 04/10/2016 8:03 EDT ; Life Cycle Date: 08/13/2013 ; Life Cycle Status: Active ; Vocabulary: SNOMED CT Diabetes mellitus (SNOMED CT :716794716 ) Name of Problem: Diabetes mellitus ; Recorder: KENYON CHAMBERS RN; Confirmation: Confirmed ; Classification: Medical ; Code: 838181280 ; Contributor System: PowerChart ; Last Updated: 04/10/2016 8:04 EDT ; Life Cycle Date: 08/13/2013 ; Life Cycle Status: Active ; Vocabulary: SNOMED CT Emphysema (SNOMED CT :107836953 ) Name of Problem: Emphysema ; Recorder: JUAN LUIS GIL RN; Confirmation: Confirmed ; Classification: Medical ; Code: 637926139 ; Contributor System: PowerChart ; Last Updated: 11/12/2014 10:11 EST ; Life Cycle Date: 11/12/2014 ; Life Cycle Status: Active ; Vocabulary: SNOMED CT GERD - Gastro-esophageal reflux disease (SNOMED CT :4932072076 ) Name of Problem: GERD - Gastro-esophageal reflux disease ; Recorder: KENYON CHAMBERS RN; Confirmation: Confirmed ; Classification: Medical ; Code: [id number] ; Contributor System: PowerChart ; Last Updated: [...] Patient Care High blood pressure (SNOMED CT :07195464 ) Name of Problem: High blood pressure ; Recorder: KENYON CHAMBERS RN; Confirmation: Confirmed ; Classification: Medical ; Code: 65604647 ; Contributor System: PowerChart ; Last Updated: 04/10/2016 8:03 EDT ; Life Cycle Date: 08/13/2013 ; Life Cycle Status: Active ; Vocabulary: SNOMED CT History of obstructive sleep apnea (IMO :03454095 ) Name of Problem: History of obstructive sleep apnea ; Recorder: SYSTEM, SYSTEM; Confirmation: Confirmed ; Classification: Medical ; Code: 35401094 ; Last Updated: 08/25/2020 18:21 EST ; Life Cycle Date: 08/25/2020 ; Life Cycle Status: Active ; Vocabulary: IMO Hx of pulmonary embolus (SNOMED CT :282989205 ) Name of Problem: Hx of pulmonary embolus ; Recorder: SANG RICO APRN; Confirmation: Confirmed ; Classification: Medical ; Code: 458357877 ; Contributor System: PowerChart ; Last Updated: 04/10/2016 8:05 EDT ; Life Cycle Date: 04/10/2016 ; Life Cycle Status: Active ; Responsible Provider: SANG RICO APRN; Vocabulary: SNOMED CT Hyperlipidemia (SNOMED CT :13005417 ) Name of Problem: Hyperlipidemia ; Recorder: KENYON CHAMBERS RN; Confirmation: Confirmed ; Classification: Medical ; Code: 48911693 ; Contributor System: PalmapChart ; Last Updated: 04/10/2016 8:03 EDT ; Life Cycle Date: 08/13/2013 ; Life Cycle Status: Active ; Vocabulary: SNOMED CT Multiple renal cysts (SNOMED CT :810410781 ) Name of Problem: Multiple renal cysts ; Recorder: KENYON CHAMBERS RN; Confirmation: Confirmed ; Classification: Medical ; Code: 202199177 ; Contributor System: PalmapChart ; Last Updated: 04/10/2016 8:04 EDT ; Life Cycle Date: 08/13/2013 ; Life Cycle Status: Active ; Vocabulary: SNOMED CT Stented coronary artery (SNOMED CT :8728967249 ) Name of Problem: Stented coronary artery ; Recorder: KENYON CHAMBERS RN; Confirmation: Confirmed ; Classification: Medical ; Code: 5719299096 ; Contributor System: PalmapChart ; Last Updated: 04/10/2016 8:03 EDT ; Life Cycle Date: 08/13/2013 ; Life Cycle Status: Active ; Vocabulary: SNOMED CT Diagnoses(Active) Hip pain-swelling Date: 03/03/2021 ; Diagnosis Type: Reason For Visit ; Confirmation: Complaint of ; Clinical Dx: Hip pain-swelling ; Classification: Medical ; Clinical Service: Emergency medicine ; Code: PNED ; Probability: 0 ; Diagnosis Code: [id number] ED Height and Weight Height Source : Stated Height Entry Format : [place] Height, Feet : 5 ft(Converted to: 152 cm, 60 Inch) Height, Inches : 3 Inch(Converted to: 0 ft 3 Inch, 7.62 cm) Clinical Height : 160.02 cm Weight Source, ED : Critical estimated dosing weight Weight Entry Format : [place] Weight, Pounds : 154 lb Clinical Dosing Weight : 70 kg Body Surface Area (BSA) : 1.73 m2 Body Mass Index : 27.3 kg/m2 (HI) [place] Body Weight (IBW) : 52.02 kg Viri Gonsales RN - 03/03/2021 16:04 EDT Electronically signed by Gayle Finnegan Conversion English Language Arts Teacher Cerner at 02/04/2023 2:20 PM CDT documented in this encounter Plan of Treatment Not on file documented as of this encounter Visit Diagnoses Not on filedocumented in this encounter Care Teams Information Security Associate Relationship Specialty Start Date End Date Jay Howell MD [address] [place] [phone] PCP - General Emergency Medicine 11/12/23 documented as of this encounter
--- OUTSIDE RECORDS SUMMARY | 2025-08-16 09:14 | XMS_ITS | Encounter Summary ---
Author Organization [employer] ([place], [place], [place], [place]) Address [address] [place] [address] Care Team Providers Care Curator Zoological Museum Name Role Phone Jay Howell MD Primary Care Provider [phone] Encounter Details Date Type Department Care Team (Late st Contact Info) Description 06/14/2020 Transcribed Document [facility] [place] Family Medicine [address] [place] [address] ProviderJessie MD [address] [place] [address] Social History Tobacco Use Types Packs/Day Years Used Date Smoking Tobacco: Never Assessed Comments Unknown Sex and Gender Information Value Date Recorded Sex Assigned at Not on file Legal Sex Female 7:30 PM CDT Gender Identity Not on file Sexual Orientation Not on file documented as of this encounter Miscellaneous Notes * Cerner Conversion Note - Jessie ProviderMD - 06/14/2020 2:00 AM CDT Valuer Details Entered On: 06/14/2020 2:51 EDT Performed [...] on filedocumented in this encounter Care Teams Curator Zoological Museum Relationship Specialty Start Date End Date Jay Howell MD [address] [place] [phone] PCP - General Emergency Medicine 11/12/23 documented as of this encounter
--- OUTSIDE RECORDS SUMMARY | 2025-08-16 09:14 | XMS_ITS | Encounter Summary ---
Author Organization [employer] ([place], [place], [place], [place]) Address [address] [place] [address] Care Team Providers Care Harbor Patrol Police Name Role Phone Jay Howell MD Primary Care Provider [phone] Encounter Details Date Type Department Care Team (Late st Contact Info) Description 06/14/2020 Transcribed Document [facility] [place] Family Medicine [address] [place] [address] ProviderJessie MD [address] [place] [address] Social History Tobacco Use Types Packs/Day Years [...] 06/14/2020 6:24 EDT Electronically signed by Sivan [facility] Conversion Cloth Printer Cerner at 02/04/2023 2:11 PM CDT documented in this encounter Plan of Treatment Not on file documented as of this encounter Visit Diagnoses Not on filedocumented in this encounter Care Teams [employer] Police Relationship Specialty Start Date End Date Jay Howell MD [address] [place] [phone] PCP - General Emergency Medicine 11/12/23 documented as of this encounter
--- OUTSIDE RECORDS SUMMARY | 2025-08-16 09:14 | XMS_ITS | Encounter Summary ---
Author Organization [employer] ([place], [place], [place], [place]) Address [address] [place] [address] Care Team Providers Care International Project Engineer Name Role Phone Jay Howell MD Primary Care Provider [phone] Encounter Details Date Type Department Care Team (Late st Contact Info) Description 06/19/2020 Transcribed Document [facility] [place] [address] [place] [address] ProviderJessie MD [address] [place] [address] Social History Tobacco Use Types Packs/Day Years [...] provider. This is important. Medicines ??? Take [id number] and prescription medicines only as told by [...] 10/03/2006 Document Revised: 06/13/2019 Document Reviewed: 06/13/2019 ReserveOut Patient Education ? 2020 [employer]. documented in this encounter Plan of Treatment Not on file documented as of this encounter Visit Diagnoses Not on filedocumented in this encounter Care Teams International Project Engineer Relationship Specialty Start Date End Date Jay Howell MD [address] [place] [phone] PCP - General Emergency Medicine 11/12/23 documented as of this encounter
--- OUTSIDE RECORDS SUMMARY | 2025-08-16 09:14 | XMS_ITS | Encounter Summary ---
Author Organization [employer] ([place], [place], [place], [place]) Address [address] [place] [address] Care Team Providers Care Pipefitter Name Role Phone Jay Howell MD Primary Care Provider [phone] Encounter Details Date Type Department Care Team (Late st Contact Info) Description 06/19/2020 Transcribed Document [facility] [place] Family Medicine [address] [place] [address] ProviderJessie MD [address] [place] [address] Social History Tobacco Use Types Packs/Day Years [...] On: 06/19/2020 12:12 EDT by Sri Kruse, Printed Circuit Board Pcb Draftsman [facility] Provider Status : EST [...] at ED : Other Primary Language : Surinamese [facility] [place] Comment : Patient needs follow ups with PCP and Cardiology. Appointment already scheduled with Gabriella Asencio. I called and scheduled appointment with Dr. Tara Moeller and called patient with appointment. Follow Up Needed : No Sri Kruse, Printed Circuit Board Pcb Draftsman - 06/19/2020 12:12 EDT Electronically signed by Sivan [facility] Conversion Special Programs Director Cerner at 02/04/2023 2:15 PM CDT documented in this encounter Plan of Treatment Not on file documented as of this encounter Visit Diagnoses Not on filedocumented in this encounter Care Teams Pipefitter Relationship Specialty Start Date End Date Jay Howell MD [address] [place] [phone] PCP - General Emergency Medicine 11/12/23 documented as of this encounter
--- OUTSIDE RECORDS SUMMARY | 2025-08-16 09:14 | XMS_ITS | Encounter Summary ---
Author Organization [employer] ([place], [place], [place], [place]) Address [address] [place] [address] Care Team Providers Care Acute Care Nurse Name Role Phone Jay Howell MD Primary Care Provider [phone] Encounter Details Date Type Department Care Team (Late st Contact Info) Description 03/03/2021 Transcribed Document [facility] Family Medicine [address] [place] [address] ProviderJessie MD [address] [place], [place] [address] Social History Tobacco Use Types Packs/Day Years [...] : Low risk (0) [place] Interventions : [place] precautions for safety used Marek Sanford Rn - 03/03/2021 16:24 EDT Electronically signed by Sivan [facility] Conversion Tool Trouble Shooter Cerner at 02/04/2023 2:12 PM CDT documented in this encounter Plan of Treatment Not on file documented as of this encounter Visit Diagnoses Not on filedocumented in this encounter Care Teams Acute Care Nurse Relationship Specialty Start Date End Date Jay Howell MD [address] [place] [phone] PCP - General Emergency Medicine 11/12/23 documented as of this encounter
--- OUTSIDE RECORDS SUMMARY | 2025-08-16 09:14 | XMS_ITS | Encounter Summary ---
Author Organization [employer] ([place], [place], [place], [place]) Address [address] [place] [address] Care Team Providers Care Manager Operations Name Role Phone Jay Howell MD Primary Care Provider [phone] Encounter Details Date Type Department Care Team (Late st Contact Info) Description 03/03/2021 Transcribed Document [facility] [address] [place] [address] ProviderJessie MD [address] [place] [id number] Social History Tobacco Use Types Packs/Day Years [...] 03/03/2021 5:06 PM CDT Electronically signed by [facility] Conversion Control Clerk Food And Beverage Cerner at 02/04/2023 2:08 PM CDT documented in this encounter Plan of Treatment Not on file documented as of this encounter Visit Diagnoses Not on filedocumented in this encounter Care Teams Manager Operations Relationship Specialty Start Date End Date Jay Howell MD [address] [place] [phone] PCP - General Emergency Medicine 11/12/23 documented as of this encounter
--- OUTSIDE RECORDS SUMMARY | 2025-08-16 09:14 | XMS_ITS | Encounter Summary ---
Author Organization [employer] ([place], [place], [place], [place]) Address [address] [place] [address] Care Team Providers Care Plumbing And Heating Contractor Name Role Phone Jay Howell MD Primary Care Provider [phone] Encounter Details Date Type Department Care Team (Late st Contact Info) Description 08/22/2020 Transcribed Document [facility] [address] [place] [address] ProviderJessie MD [address] [place] [address] Social History Tobacco Use Types Packs/Day Years Used Date Smoking Tobacco: Never Assessed Comments Unknown Sex and Gender Information Value Date Recorded Sex Assigned at Not on file Legal Sex Female 7:30 PM CDT Gender Identity Not on file Sexual Orientation Not on file documented as of this encounter Miscellaneous Notes * Cerner Conversion Note - Jessie ProviderMD - 08/22/2020 8:49 PM CUT TOBACCO BULKER ED Assessment Entered On: 08/23/2020 1:11 EST Performed On: 08/22/2020 21:11 EST by Oumou Augustine RN ED Quick Look Assessment Level of Consciousness : Alert Orientation : Oriented x 4 Oumou Augustine RN - 08/23/2020 1:08 EST ED General-Functional Assess Preferred Communication Mode : Verbal Communication Barrier : None Primary Language : Indonesian Any Spiritual/Cultural Needs or Requests : No [...] 08/23/2020 1:08 EST Electronically signed by Sivan [facility] Conversion Livestock Feeder Cerner at 02/04/2023 1:58 PM CDT documented in this encounter Plan of Treatment Not on file documented as of this encounter Visit Diagnoses Not on filedocumented in this encounter Care Teams Plumbing And Heating Contractor Relationship Specialty Start Date End Date Jay Howell MD [address] [place] [phone] PCP - General Emergency Medicine 11/12/23 documented as of this encounter
--- OUTSIDE RECORDS SUMMARY | 2025-08-16 09:14 | XMS_ITS | Encounter Summary ---
Author Organization [employer] ([place], [place], [place], [place]) Address [address] [place] [address] Care Team Providers Care Drum Cleaner Name Role Phone Jay Howell MD Primary Care Provider [phone] Encounter Details Date Type Department Care Team (Late st Contact Info) Description 06/14/2020 Transcribed Document [facility] [address] [place] [address] Cheyenne Flores MD [address] [place] [phone] Social History Tobacco Use Types Packs/Day [...] 06/13/20 16:23:00 EDT, Cardiac Diet, 60 gm carbs:[id number] george, Isolation: Standard Precautions Pending Labs Ordered PT/INR Prothrombin Time Specimen Type: Blood, Anticoagulant: Yes warfarin, AM Draw collect, 06/14/20 4:00:00 EDT, Daily, Lab Collect Electronically signed by Sivan [facility] Conversion Manager Printing Cerner at 02/04/2023 1:57 PM CDT documented in this encounter Plan of Treatment Not on file documented as of this encounter Visit Diagnoses Not on filedocumented in this encounter Care Teams Drum Cleaner Relationship Specialty Start Date End Date Jay Howell MD [address] [place] [phone] PCP - General Emergency Medicine 11/12/23 documented as of this encounter
--- OUTSIDE RECORDS SUMMARY | 2025-08-16 09:14 | XMS_ITS | Encounter Summary ---
Author Organization [email or web address] ([place], [place], [place], [place]) Address [address] [place] [address] Care Team Providers Care Robotics Specialist Name Role Phone Jay Howell MD Primary Care Provider [phone] Encounter Details Date Type Department Care Team (Late st Contact Info) Description 06/14/2020 Transcribed Document [facility] [place] [address] [place] [address] ProviderJessie MD [address] [place] [address] Social History Tobacco Use Types Packs/Day Years [...] on filedocumented in this encounter Care Teams Robotics Specialist Relationship Specialty Start Date End Date Jay Howell MD [address] [place] [phone] PCP - General Emergency Medicine 11/12/23 documented as of this encounter
--- OUTSIDE RECORDS SUMMARY | 2025-08-16 09:14 | XMS_ITS | Encounter Summary ---
Author Organization [employer] ([place], [place], [place], [place]) Address [address] [place] [address] Care Team Providers Care Last Code Striper Name Role Phone Jay Howell MD Primary Care Provider [phone] Encounter Details Date Type Department Care Team (Late st Contact Info) Description 06/13/2020 Transcribed Document [facility] [address] [place] [address] ProviderJessie MD [address] [place] [address] Social History Tobacco Use Types Packs/Day Years [...] Tobacco Cues : Verbalizes understanding Activities to [place] With Smoking Urges : Verbalizes understanding Basic [...] on filedocumented in this encounter Care Teams Last Code Striper Relationship Specialty Start Date End Date Jay Howell MD [address] [place] [phone] PCP - General Emergency Medicine 11/12/23 documented as of this encounter
--- OUTSIDE RECORDS SUMMARY | 2025-08-16 09:14 | XMS_ITS | Encounter Summary ---
Author Organization [employer] ([place], [place], [place], [place]) Address [address] [place] [address] Care Team Providers Care Client Services Account Manager Name Role Phone Jay Howell MD Primary Care Provider [phone] Encounter Details Date Type Department Care Team (Late st Contact Info) Description 06/13/2020 Transcribed Document [facility] [place] Family Medicine [address] [place] [address] ProviderJessie MD [address] [place] [address] Social History Tobacco Use Types Packs/Day Years [...] Ministry Provided to : Patient, Family/Significant other Mormon Preference : Baptism FARHANA PATEL - 06/13/2020 12:13 EDT Interventions Advance Directive Information Provided : Yes Advance Directive Comment : Discussed Living Will; Ms. Montoya requested information only; Gave copy of Personal Choices booklet; Ms. Montoya reported she would call for joint special operations if/when she decides to complete one Emotional Support : Empathic/Engaged listening, Family/Significant other supported, Feelings expressed, Information provided Spiritual and Mormon : Spiritual/Mormon support provided Change, Adjustment and Loss : [...] 06/13/2020 12:13 EDT Electronically signed by Sivan [facility] Conversion Novelty Worker Cerner at 02/04/2023 2:00 PM CDT documented in this encounter Plan of Treatment Not on file documented as of this encounter Visit Diagnoses Not on filedocumented in this encounter Care Teams Client Services Account Manager Relationship Specialty Start Date End Date Jay Howell MD [address] [place] [phone] PCP - General Emergency Medicine 11/12/23 documented as of this encounter
--- OUTSIDE RECORDS SUMMARY | 2025-08-16 09:14 | XMS_ITS | Encounter Summary ---
Author Organization [employer] ([place], [place], [place], [place]) Address [address] [place] [address] Care Team Providers Care Remote Sensing Analyst Name Role Phone Jay Howell MD Primary Care Provider [phone] Encounter Details Date Type Department Care Team (Late st Contact Info) Description 03/03/2021 Transcribed Document [facility] Family Medicine [address] [place] [address] ProviderJessie MD [address] [place] [address] Social History Tobacco Use Types Packs/Day Years Used Date Smoking Tobacco: Never Assessed Comments Unknown Sex and Gender Information Value Date Recorded Sex Assigned at Not on file Legal Sex Female 7:30 PM CDT Gender Identity Not on file Sexual Orientation Not on file documented as of this encounter Miscellaneous Notes * Cerner Conversion Note - Historical ProviderMD - 03/03/2021 3:59 PM CDT [place] Suicide Severity Rating Scale (C-SSRS) Entered On: 03/03/2021 16:25 EDT Performed On: 03/03/2021 16:24 EDT by Marek Sanford Rn [place] Suicide Severity Rating Scale (C-SSRS) CSSRS Past [...] on filedocumented in this encounter Care Teams Remote Sensing Analyst Relationship Specialty Start Date End Date Jay Howell MD [address] [place] [phone] PCP - General Emergency Medicine 11/12/23 documented as of this encounter
--- OUTSIDE RECORDS SUMMARY | 2025-08-16 09:14 | XMS_ITS | Encounter Summary ---
Author Organization [employer] ([place], [place], [place], [place]) Address [address] [place] [address] Care Team Providers Care Hospice Registered Nurse Name Role Phone Jay Howell MD Primary Care Provider [phone] Encounter Details Date Type Department Care Team (Late st Contact Info) Description 06/13/2020 Transcribed Document [facility] [place] Family Medicine [address] [place] [address] ProviderJessie MD [address] [place] [address] Social History Tobacco Use Types Packs/Day Years [...] on RA. FSBS noted. Fall team and RIVET STICKER team notified but they were in another RIVET STICKER call. PT feels clammy and light headed [...] 06/13/2020 16:24 EDT Electronically signed by Sivan [facility] Conversion Cotton Presser Cerner at 02/04/2023 2:04 PM CDT documented in this encounter Plan of Treatment Not on file documented as of this encounter Visit Diagnoses Not on filedocumented in this encounter Care Teams Hospice Registered Nurse Relationship Specialty Start Date End Date Jay Howell MD [address] [place] [phone] PCP - General Emergency Medicine 11/12/23 documented as of this encounter
--- OUTSIDE RECORDS SUMMARY | 2025-08-16 09:14 | XMS_ITS | Encounter Summary ---
Author Organization [employer] ([place], [place], [place], [place]) Address [address] [place] [address] Care Team Providers Care Telecommunications Support Name Role Phone Jay Howell MD Primary Care Provider [phone] Encounter Details Date Type Department Care Team (Late st Contact Info) Description 06/13/2020 Transcribed Document [facility] [place] Family Medicine [address] [place] [address] ProviderJessie MD [address] [place] [address] Social History Tobacco Use Types Packs/Day Years [...] On: 06/13/2020 13:24 EDT by JEFE SHELTON, Carburetor Specialist-Bilingual Recruiter Initial Assessment I Previously Documented Living Environment [...] Listed? : Yes Medical Durable Power of Shingle Carrier Name : No JEFE SHELTON Carburetor Specialist-Bilingual Recruiter - 06/13/2020 13:24 EDT Initial Assessment II Sensory and Motor Deficits : Weakness Current Home Treatments and Equipment : CPAP, Walker JEFE SHELTON Carburetor Specialist-Bilingual Recruiter - 06/13/2020 13:24 EDT Discharge Needs I Anticipated Discharge To, CM : Home with home health Current Home Treatment/Equipment : Current Home Treatment/Equipment No qualifying data available. Post Acute/Home Treatments : None Documentation Status Complete : Yes JEFE SHELTON Social Worker-Bilingual Recruiter - 06/13/2020 13:24 EDT Discharge Needs II Professional Skilled Services : Professional Skilled Services No qualifying data available. Needs Assistance with Transportation : No Discharge Options Discussed with Patient : Acute rehabilitation, Discharge transportation, DME, Home Health, Short term rehabilitation JEFE SHELTON Carburetor Specialist-Bilingual Recruiter - 06/13/2020 13:24 EDT Narrative Note Narrative Note : Patient is a low readmission risk of 38. Patient reported that she had HH in 2008 after a hip replacement. Patient stated that she has also been inpatient at [facility]. Patient reported that she is ADL independent but uses a walker when she walks around the park. Patient reported that she has transportation home. She denied having any discharge needs. Cm will continue to follow. JEFE SHELTON Carburetor Specialist-Bilingual Recruiter - 06/13/2020 13:24 EDT documented in this encounter Plan of Treatment Not on file documented as of this encounter Visit Diagnoses Not on filedocumented in this encounter Care Teams Telecommunications Support Relationship Specialty Start Date End Date Jay Howell MD [address] [place] [phone] PCP - General Emergency Medicine 11/12/23 documented as of this encounter
--- OUTSIDE RECORDS SUMMARY | 2025-08-16 09:14 | XMS_ITS | Encounter Summary ---
Author Organization [employer] ([place], [place], [place], [place]) Address [address] [place] [address] Care Team Providers Care Recreation Facility Manager Name Role Phone Jay Howell MD Primary Care Provider [phone] Encounter Details Date Type Department Care Team (Late st Contact Info) Description 06/14/2020 Transcribed Document [facility] [place] Family Medicine [facility] [place] [address] ProviderJessie MD [address] [place] [address] Social History Tobacco Use Types Packs/Day Years [...] Diagnoses: None Author: FREDY YAÑEZ MD-CAR BASIC Community Services Coordinator: None Subjective NAD Health Status Allergies: Allergic [...] list: All Problems Arthritis / SNOMED CT 3441819 / Confirmed Atrial fibrillation with RVR / SNOMED CT 3583073864 / Confirmed Blood clot / SNOMED CT 132098796 / Confirmed Cataract / Patient Care / Confirmed Chest pain / SNOMED CT 94978354 / Complaint of Clotting disorder / SNOMED CT 934252760 / Confirmed COPD / SNOMED CT 22138663 / Confirmed Coronary artery disease / SNOMED CT 1690298146 / Confirmed Diabetes mellitus / SNOMED CT 324181185 / Confirmed GERD - Gastro-esophageal reflux disease / SNOMED CT 6370714014 / Confirmed Glaucoma / Patient Care / Confirmed Chronic anticoagulation / SNOMED CT 085848875 / Confirmed Hx of pulmonary embolus / SNOMED CT 052095218 / Confirmed High blood pressure / SNOMED CT 51480477 / Confirmed History of obstructive sleep apnea / IMO 46706564 / Confirmed Hyperlipidemia / SNOMED CT 44721133 / Confirmed Multiple renal cysts / SNOMED CT 809814997 / Confirmed Emphysema / SNOMED CT 806140654 / Confirmed Apnea, sleep / SNOMED CT 392154564 / Confirmed Stented coronary artery / SNOMED CT 2625444217 / Confirmed UTI - Urinary tract infection / SNOMED CT 8222511528 / Confirmed, Active Problems (21) Apnea, sleep [...] of motion, Normal strength. Integumentary: Warm, Dry, [place]. Neurologic: Alert, Oriented. Psychiatric: Cooperative, Appropriate mood & affect. Results Review JUN 14 05:28 136 105 7 / H 114 3.6 24 0.60 \ JUN 14 05:28 \ 12.0 / 5.2 177 / 35.2 \ Cardiac Markers (Current Encounter/Past 24 Hours) No Cardiac Marker Results Found (Past 24 Hours) Radiology Results (Last 48 hours) [id number] -- 06/13/2020 15:07 CR Chest 1 Vw [...] no acuteprocess.Images reviewed, interpreted, and dictated by Patrcie Eaton MD CT Head WO (06/13/2020 09:58) [...] change from prior. No acute process. [facility] IMPRESSION: Angiographically, the patient has [...] Dr. Garcia. Electronically signed by Sivan [facility] Conversion Infection Control Specialist Cerner at 02/04/2023 2:15 PM CDT documented in this encounter Plan of Treatment Not on file documented as of this encounter Visit Diagnoses Not on filedocumented in this encounter Care Teams Recreation Facility Manager Relationship Specialty Start Date End Date Jay Howell MD [address] [place] [phone] PCP - General Emergency Medicine 11/12/23 documented as of this encounter
--- OUTSIDE RECORDS SUMMARY | 2025-08-16 09:14 | XMS_ITS | Encounter Summary ---
Author Organization [employer] ([place], [place], [place], [place]) Address [address] [place] [address] Care Team Providers Care Php Website Developer Name Role Phone Jay Howell MD Primary Care Provider [phone] Encounter Details Date Type Department Care Team (Late st Contact Info) Description 08/22/2020 Transcribed Document [facility] [place] Family Medicine [address] [place] [address] ProviderJsesie MD [address] [place] [address] Social History Tobacco Use Types Packs/Day Years Used Date Smoking Tobacco: Never Assessed Comments Unknown Sex and Gender Information Value Date Recorded Sex Assigned at Not on file Legal Sex Female 7:30 PM CDT Gender Identity Not on file Sexual Orientation Not on file documented as of this encounter Miscellaneous Notes * Cerner Conversion Note - Historical MD Alpa - 08/22/2020 10:50 PM FISHER HAND LINE Patient: SKYLER MONTOYA Age: 79 years Sex: [...] 06/13/2020 8:52 EVA LAWS RN PCI w/ [place] stent to D1 Coronary artery bypass graft ([id number]) in 1992 at 52 Years. femur repair. Appendectomy (411501950). uterine suspension. Hysterectomy (214387584). back surgury. Cholecystectomy (27053498). Hip replacement (0598291010). cataract surgury.. Family history: Cardiomyopathy Child Stroke [...] EST Height Source Stated Height Entry Format Dent Height/Length, [place] (ft) 5 ft Height/Length [place] 3 Inch CLINICALHEIGHT 160.02 cm [place] Body Weight 52.02 kg Weight Source, ED Critical estimated dosing weight Weight Entry Format Dent Weight Bulgarian lb 154 lb CLINICALWEIGHT 70 kg Body [...] % 33.0 % Lymph # 2.33 x10(3)/uL [place] % 10.1 % [place] # 0.71 K/uL Eos % 2.1 % Eos # 0.15 x10(3)/uL Baso % 0.4 % Baso # 0.03 x10(3)/uL Slide Review No IG# 0.04 x10(3)/uL IG% 0.60 % . Radiology results: Left tib/fib: no fx or dl Left ankle: no fx or dl. [facility] [id number] was reviewed. Last entry 07/30/20 for norco [...] Medical Plan Condition: Improved, Stable. Prescriptions: Prescription Clinical Nurse Reviewer Pharmacy: [facility] 7.5 mg-325 mg oral tablet (Prescribe): 1 Tab, Oral, Q6H, for 3 Day(s), PRN: as needed for pain, 12 Tab, 0 Refill(s) clindamycin 300 mg oral capsule (Prescribe): 1 Cap, Oral, QID, for 7 Day(s), 28 Cap, 0 Refill(s), Prescription Clinical Nurse Reviewer Pharmacy: Bactroban 2% topical ointment (Prescribe): 1 [...] filedocumented in this encounter Care Teams Php Website Developer Relationship Specialty Start Date End Date Jay Howell MD [address] [place] [phone] PCP - General Emergency Medicine 11/12/23 documented as of this encounter
--- OUTSIDE RECORDS SUMMARY | 2025-08-16 09:14 | XMS_ITS | Encounter Summary ---
Author Organization [employer] ([place], [place], [place], [place]) Address [address] [place] [address] Care Team Providers Care Wash Worker Name Role Phone Jay Howell MD Primary Care Provider [phone] Encounter Details Date Type Department Care Team (Late st Contact Info) Description 08/22/2020 Transcribed Document [facility] [place] [address] [place] [address] ProviderJessie MD [address] [place] [address] Social History Tobacco Use Types Packs/Day Years Used Date Smoking Tobacco: Never Assessed Comments Unknown Sex and Gender Information Value Date Recorded Sex Assigned at Not on file Legal Sex Female 7:30 PM CDT Gender Identity Not on file Sexual Orientation Not on file documented as of this encounter Miscellaneous Notes * Cerner Conversion Note - Historical ProviderMD - 08/22/2020 8:49 PM EMPLOYMENT INTERVIEWER Broset Violence Assessment Entered On: 08/22/2020 23:10 EST Performed On: 08/22/2020 23:10 EST by Noy Miguel Event Technician Broset Violence Assessment Broset Violence Checklist of Symptoms : None Broset Violence Symptoms Subtotal : 0 Broset Violence Symptoms Indicator : Low risk (0) Noy Miguel Paramedic - 08/22/2020 23:10 EST Electronically signed by Sivan [facility] Conversion Distance Education Director Cerner at 02/04/2023 1:55 PM CDT documented in this encounter Plan of Treatment Not on file documented as of this encounter Visit Diagnoses Not on filedocumented in this encounter Care Teams Wash Worker Relationship Specialty Start Date End Date Jay Howell MD [address] [place] [phone] PCP - General Emergency Medicine 11/12/23 documented as of this encounter
--- OUTSIDE RECORDS SUMMARY | 2025-08-16 09:14 | XMS_ITS | Encounter Summary ---
Author Organization [employer] ([place], [place], [place], [place]) Address [address] [place] [address] Care Team Providers Care Director Women Name Role Phone Jay Howell MD Primary Care Provider [phone] Encounter Details Date Type Department Care Team (Late st Contact Info) Description 03/03/2021 Transcribed Document [facility] [place] Family Medicine [address] [place] [address] ProviderJessie MD [address] [place] [phone] Social History Tobacco Use Types Packs/Day Years [...] 03/03/2021 17:11 EDT Electronically signed by Sivan [facility] Conversion Embossed Or Impressed Lettering Painter Cerner at 02/04/2023 2:10 PM CDT documented in this encounter Plan of Treatment Not on file documented as of this encounter Visit Diagnoses Not on filedocumented in this encounter Care Teams Director Women Relationship Specialty Start Date End Date Jay Howell MD [address] [place] [phone] PCP - General Emergency Medicine 11/12/23 documented as of this encounter
--- OUTSIDE RECORDS SUMMARY | 2025-08-16 09:14 | XMS_ITS | Clinical Summary ---
Author Organization [facility] Address [address] [place] [address] Phone Care Team Providers Care Division Officer [employer] Name Role Phone No Pcp, Per Patient [...] nightly. Active nalOXone (NARCAN) 4 mg/actuation Nasl [place], Non-Aerosol 0.1 mL by Nasal route as needed for Opioid Reversal. [place] the contents of one device (0.1mL) into [...] (06/10/2025 5:51 PM EDT): - transferred to [facility] 05/26 with hypotension and hypoxia - pulm edema on cxr - echo with EF 55-60%, indeterminate diastolic function, pulm pressure 41 mmHg - diuresis Assessment & Plan (06/09/2025 11:10 AM EDT): - transferred to [facility] 8 with hypotension and hypoxia - pulm edema on cxr - echo with EF 55-60%, indeterminate diastolic function, pulm pressure 41 mmHg - diuresis Assessment & Plan (06/08/2025 11:33 AM EDT): - transferred to [facility] 05/26 with hypotension and hypoxia - pulm edema on cxr - echo with EF 55-60%, indeterminate diastolic function, pulm pressure 41 mmHg - diuresis Assessment & Plan (06/07/2025 12:27 PM EDT): - transferred to [facility] 8 with hypotension and hypoxia - pulm edema on cxr - echo with EF 55-60%, indeterminate diastolic function, pulm pressure 41 mmHg - diuresis Assessment & Plan (06/06/2025 3:47 PM EDT): - transferred to [facility] 8 with hypotension and hypoxia - pulm edema [...] (06/04/2025 1:59 PM EDT): - transferred to [facility] 8/ with hypotension and hypoxia - pulm edema on cxr - echo with EF 55-60%, indeterminate diastolic function, pulm pressure 41 mmHg - diuresis Assessment & Plan (06/03/2025 7:21 AM EDT): - transferred to [facility] 8/ with hypotension and hypoxia - pulm edema on cxr - echo with EF 55-60%, indeterminate diastolic function, pulm pressure 41 mmHg - diurese as below Assessment & Plan (06/02/2025 9:53 AM EDT): - [facility] with hypotension and hypoxia - pulm edema on cxr - echo with EF 55-60%, indeterminate diastolic function, pulm pressure 41 mmHg - diurese as below Assessment & Plan (06/01/2025 9:51 AM EDT): - transferred to [facility] 8/ with hypotension and hypoxia - pulm edema on cxr - echo with EF 55-60%, indeterminate diastolic function, pulm pressure 41 mmHg - limited diuresis due to below - on RA now Assessment & Plan (05/31/2025 8:02 AM EDT): - transferred to [facility] 8/ with hypotension and hypoxia - pulm edema on cxr - echo with EF 55-60%, indeterminate diastolic function, pulm pressure 41 mmHg - limited diuresis due to below - remains on 2L now Assessment & Plan (05/30/2025 11:39 AM EDT): - transferred to [facility] 8/ with hypotension and hypoxia - pulm [...] (06/04/2025 1:59 PM EDT): - transferred to [facility] 8/ with hypotension and hypoxia - pulm edema on cxr - echo with EF 55-60%, indeterminate diastolic function, pulm pressure 41 mmHg - diuresis Assessment & Plan (06/03/2025 7:21 AM EDT): - transferred to [facility] 8/ with hypotension and hypoxia - pulm edema on cxr - echo with EF 55-60%, indeterminate diastolic function, pulm pressure 41 mmHg - diurese as below Assessment & Plan (06/02/2025 9:53 AM EDT): - transferred to [facility] 8/ with hypotension and hypoxia - pulm edema on cxr - echo with EF 55-60%, indeterminate diastolic function, pulm pressure 41 mmHg - diurese as below Assessment & Plan (06/01/2025 9:51 AM EDT): - transferred to [facility] 8/ with hypotension and hypoxia - pulm edema on cxr - echo with EF 55-60%, indeterminate diastolic function, pulm pressure 41 mmHg - limited diuresis due to below - on RA now Assessment & Plan (05/31/2025 8:02 AM EDT): - transferred to [facility] 8 with hypotension and hypoxia - pulm edema on cxr - echo with EF 55-60%, indeterminate diastolic function, pulm pressure 41 mmHg - limited diuresis due to below - remains on 2L now Assessment & Plan (05/30/2025 11:39 AM EDT): - transferred to [facility] 8 with hypotension and hypoxia - pulm edema [...] pain remains an issue. No better with WIRE STEWARD. Will stop that and adjust prns Assessment [...] pt declining -Pain [facility]gonig [facility] Assessment & Plan (05/14/2025 2:51 PM [...] pain remains an issue. No better with WIRE STEWARD. 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 - vascular consulted - arterial studies 7/17 with significant PAD - BARREL COOPER stenosis Patent popliteal and TPT with severe stenosis Patent proximal REPRODUCTION SPECIALIST but occluded distally without reconstitution Patent DAREN with multifocal severe stenosis, occlusion at the level of the ankle and no distal reconstitution Significant small vessel disease in L foot Assessment & Plan (05/18/2025 8:38 AM EDT): History of angiogram 01/2025. - vascular consulted - arterial studies 7/17 with significant PAD - BARREL COOPER stenosis Patent popliteal and TPT with severe stenosis Patent proximal REPRODUCTION SPECIALIST but occluded distally without reconstitution Patent DAREN with multifocal severe stenosis, occlusion at the level of the ankle and no distal reconstitution Significant small vessel disease in L foot Assessment & Plan (05/17/2025 9:16 AM EDT): History of angiogram 01/2025. - vascular consulted - arterial studies 7/17 with significant PAD - BARREL COOPER stenosis Patent popliteal and TPT with severe stenosis Patent proximal REPRODUCTION SPECIALIST but occluded distally without reconstitution Patent DAREN with multifocal severe stenosis, occlusion at the level of the ankle and no distal reconstitution Significant small vessel disease in L foot Assessment & Plan (05/16/2025 2:50 PM EDT): History of angiogram 01/2025. - vascular consulted - arterial studies 7/17 with significant PAD - BARREL COOPER stenosis Patent popliteal and TPT with severe stenosis Patent proximal REPRODUCTION SPECIALIST but occluded distally without reconstitution Patent DAREN with multifocal severe stenosis, occlusion at the level of the ankle and no distal reconstitution Significant small vessel disease in L foot Assessment & Plan (05/15/2025 2:22 PM EDT): History of angiogram 01/2025. - vascular consulted - arterial studies 7/17 with significant PAD - BARREL COOPER stenosis Patent popliteal and TPT with severe stenosis Patent proximal REPRODUCTION SPECIALIST but occluded distally without reconstitution Patent DAREN with multifocal severe stenosis, occlusion at the level of the ankle and no distal reconstitution Significant small vessel disease in L foot Assessment & Plan (05/14/2025 10:10 AM EDT): History of angiogram 01/2025. - vascular consulted - arterial studies 7/17 with significant PAD - BARREL COOPER stenosis Patent popliteal and TPT with severe stenosis Patent proximal REPRODUCTION SPECIALIST but occluded distally without reconstitution Patent DAREN with multifocal severe stenosis, occlusion at the level of the ankle and no distal reconstitution Significant small vessel disease in L foot Assessment & Plan (05/13/2025 9:08 AM EDT): History of angiogram 01/2025. - vascular consulted - arterial studies 7/17 with significant PAD - BARREL COOPER stenosis Patent popliteal and TPT with severe stenosis Patent proximal REPRODUCTION SPECIALIST but occluded distally without reconstitution Patent DAREN with multifocal severe stenosis, occlusion at the level of the ankle and no distal reconstitution Significant small vessel disease in L foot Assessment & Plan (05/12/2025 10:17 AM EDT): History of angiogram 01/2025. - vascular consulted - arterial studies 7/17 with significant PAD - BARREL COOPER stenosis Patent popliteal and TPT with severe stenosis Patent proximal REPRODUCTION SPECIALIST but occluded distally without reconstitution Patent DAREN with multifocal severe stenosis, occlusion at the level of the ankle and no distal reconstitution Significant small vessel disease in L foot Assessment & Plan (05/11/2025 11:59 AM EDT): History of angiogram 01/2025. - vascular consulted - arterial studies 7/17 with significant PAD - BARREL COOPER stenosis Patent popliteal and TPT with severe stenosis Patent proximal REPRODUCTION SPECIALIST but occluded distally without reconstitution Patent DAREN with multifocal severe stenosis, occlusion at the level of the ankle and no distal reconstitution Significant small vessel disease in L foot Assessment & Plan (05/10/2025 1:54 PM EDT): History of angiogram 01/2025. - vascular consulted - arterial studies 7/17 with significant PAD - plans for angiogram under anesthesia this week, Luis Enrique, April 10, undergoing now - continue lipitor [...] - monitor I/O, daily weights - diuresis: REPRODUCTION SPECIALIST lasix on hold - REPRODUCTION SPECIALIST coreg -Stable 05/20/25 Assessment & Plan (05/19/2025 11:25 AM EDT): Echo 2023 normal EF. Euvolemic on exam - monitor I/O, daily weights - diuresis: REPRODUCTION SPECIALIST lasix on hold - REPRODUCTION SPECIALIST coreg -Stable 05/19/25 Assessment & Plan (05/18/2025 8:38 AM EDT): Echo 2023 normal EF. Euvolemic on exam - monitor I/O, daily weights - diuresis: REPRODUCTION SPECIALIST lasix on hold - REPRODUCTION SPECIALIST coreg -Stable 05/18/25 Assessment & Plan (05/17/2025 9:16 AM EDT): Echo 2023 normal EF. Euvolemic on exam - monitor I/O, daily weights - diuresis: REPRODUCTION SPECIALIST lasix on hold - REPRODUCTION SPECIALIST coreg -Stable 05/17/25 Assessment & Plan (05/16/2025 2:50 PM EDT): Echo 2023 normal EF. Euvolemic on exam - monitor I/O, daily weights - diuresis: REPRODUCTION SPECIALIST lasix on hold - REPRODUCTION SPECIALIST coreg -Stable 05/16/25 Assessment & Plan (05/15/2025 2:22 PM EDT): Echo 2023 normal EF. Euvolemic on exam - monitor I/O, daily weights - diuresis: REPRODUCTION SPECIALIST lasix on hold - REPRODUCTION SPECIALIST coreg -Stable 05/15/25 Assessment & Plan (05/14/2025 2:51 PM EDT): Echo 2023 normal EF. Euvolemic on exam - monitor I/O, daily weights - diuresis: REPRODUCTION SPECIALIST lasix on hold - REPRODUCTION SPECIALIST coreg -Stable 05/14/25 Assessment & Plan (05/13/2025 9:08 AM EDT): Echo 2023 normal EF. Euvolemic on exam - monitor I/O, daily weights - diuresis: REPRODUCTION SPECIALIST lasix on hold - REPRODUCTION SPECIALIST coreg Assessment & Plan (05/12/2025 10:17 AM EDT): Echo 2023 normal EF. Euvolemic on exam - monitor I/O, daily weights - diuresis: REPRODUCTION SPECIALIST lasix on hold - REPRODUCTION SPECIALIST coreg Assessment & Plan (05/11/2025 7:12 AM EDT): Echo 2023 normal EF. Euvolemic on exam - monitor I/O, daily weights - diuresis: REPRODUCTION SPECIALIST lasix on hold - REPRODUCTION SPECIALIST coreg Assessment & Plan (05/10/2025 1:54 PM EDT): Echo 2023 normal EF. Euvolemic on exam - monitor I/O, daily weights - diuresis: REPRODUCTION SPECIALIST lasix on hold - REPRODUCTION SPECIALIST coreg Assessment & Plan (05/09/2025 7:00 AM EDT): Echo 2023 normal EF. Euvolemic on exam - monitor I/O, daily weights - diuresis: REPRODUCTION SPECIALIST lasix on hold - REPRODUCTION SPECIALIST coreg Assessment & Plan (05/08/2025 6:56 AM EDT): Echo 2023 normal EF. Euvolemic on exam - monitor I/O, daily weights - diuresis: REPRODUCTION SPECIALIST lasix on hold - REPRODUCTION SPECIALIST coreg Assessment & Plan (05/07/2025 7:10 AM EDT): Echo 2023 normal EF. Euvolemic on exam - monitor I/O, daily weights - diuresis: REPRODUCTION SPECIALIST lasix on hold - REPRODUCTION SPECIALIST coreg Assessment & Plan (05/06/2025 9:31 AM EDT): Echo 2023 normal EF. Euvolemic on exam - monitor I/O, daily weights - diuresis: REPRODUCTION SPECIALIST lasix on hold - REPRODUCTION SPECIALIST coreg Assessment & Plan (05/05/2025 1:00 PM EDT): Echo 2023 normal EF. Euvolemic on exam - monitor I/O, daily weights - diuresis: REPRODUCTION SPECIALIST lasix on hold - REPRODUCTION SPECIALIST coreg Assessment & Plan (05/05/2025 12:57 PM EDT): Echo 2023 normal EF. Euvolemic on exam - monitor I/O, daily weights - diuresis: REPRODUCTION SPECIALIST lasix on hold - REPRODUCTION SPECIALIST coreg Assessment & Plan (05/03/2025 6:33 PM [...] Plan (01/15/2025 6:29 AM EDT): -- Lasix REPRODUCTION SPECIALIST. Continued -- appears compensated >> stable Assessment & Plan (01/15/2025 6:21 AM EDT): -- Lasix REPRODUCTION SPECIALIST. Continued -- appears compensated Assessment & Plan (01/15/2025 6:10 AM EDT): -- Lasix REPRODUCTION SPECIALIST. 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 Not on AC d/t hx of SAH - REPRODUCTION SPECIALIST coreg - cardiac monitoring -Rate controlled 05/20/25 Assessment & Plan (05/19/2025 11:25 AM EDT): Heart rate controlled. Not on AC d/t hx of SAH - REPRODUCTION SPECIALIST coreg - cardiac monitoring -Rate controlled 05/19/25 Assessment & Plan (05/18/2025 8:38 AM EDT): Heart rate controlled. Not on AC d/t hx of SAH - REPRODUCTION SPECIALIST coreg - cardiac monitoring -Rate controlled 05/18/25 Assessment & Plan (05/17/2025 9:16 AM EDT): Heart rate controlled. Not on AC d/t hx of SAH - REPRODUCTION SPECIALIST coreg - cardiac monitoring -Rate controlled 05/17/25 Assessment & Plan (05/16/2025 2:50 PM EDT): Heart rate controlled. Not on AC d/t hx of SAH - REPRODUCTION SPECIALIST coreg - cardiac monitoring -Rate controlled 05/16/25 Assessment & Plan (05/15/2025 2:22 PM EDT): Heart rate controlled. Not on AC d/t hx of SAH - REPRODUCTION SPECIALIST coreg - cardiac monitoring -Heart rate 94 Assessment & Plan (05/14/2025 10:10 AM EDT): Heart rate controlled. Not on AC d/t hx of SAH - REPRODUCTION SPECIALIST coreg - cardiac monitoring -Heart rate 94 Assessment & Plan (05/13/2025 1:41 PM EDT): Heart rate controlled. Not on AC d/t hx of SAH - REPRODUCTION SPECIALIST coreg - cardiac monitoring -Heart rate 94 Assessment & Plan (05/12/2025 10:17 AM EDT): Heart rate controlled. Not on AC d/t hx of SAH - REPRODUCTION SPECIALIST coreg - cardiac monitoring -Heart rate 83 Assessment & Plan (05/11/2025 11:59 AM EDT): Heart rate controlled. Not on AC d/t hx of SAH - REPRODUCTION SPECIALIST coreg - cardiac monitoring -Heart rate 98 Assessment & Plan (05/10/2025 1:54 PM EDT): Heart rate controlled. Not on AC d/t hx of SAH - REPRODUCTION SPECIALIST coreg - cardiac monitoring -Heart rate 83 Assessment & Plan (05/09/2025 10:25 AM EDT): Heart rate controlled. Not on AC d/t hx of SAH - REPRODUCTION SPECIALIST coreg - cardiac monitoring -Heart rate 75 Assessment & Plan (05/08/2025 1:05 PM EDT): Heart rate controlled. Not on AC d/t hx of SAH - REPRODUCTION SPECIALIST coreg - cardiac monitoring -Heart rate 80 Assessment & Plan (05/07/2025 2:02 PM EDT): Heart rate controlled. Not on AC d/t hx of SAH - REPRODUCTION SPECIALIST coreg - cardiac monitoring -Heart rate 81 Assessment & Plan (05/06/2025 9:31 AM EDT): Heart rate controlled. Not on AC d/t hx of SAH - REPRODUCTION SPECIALIST coreg - cardiac monitoring Assessment & Plan (05/05/2025 1:00 PM EDT): Heart rate controlled. Not on AC d/t hx of SAH - REPRODUCTION SPECIALIST coreg - cardiac monitoring Assessment & Plan (05/05/2025 12:57 PM EDT): Heart rate controlled. Not on AC d/t hx of SAH - REPRODUCTION SPECIALIST coreg - cardiac monitoring Assessment & Plan [...] (01/15/2025 6:29 AM EDT): -- Coreg, ASA REPRODUCTION SPECIALIST. Continued -- Not on anticoagulation due to his history of subarachnoid hemorrhage and fall risk -- In and out of atrial fibrillation. Assessment & Plan (01/15/2025 6:21 AM EDT): -- Coreg, ASA REPRODUCTION SPECIALIST. Continued -- Not on anticoagulation due to his history of subarachnoid hemorrhage and fall risk -- In and out of atrial fibrillation. Assessment & Plan (01/15/2025 6:10 AM EDT): -- Coreg, ASA REPRODUCTION SPECIALIST. Continued -- Not on anticoagulation due to his history of subarachnoid hemorrhage and fall risk -- In and out of atrial fibrillation. Assessment & Plan (01/12/2025 10:29 PM EDT): -- Coreg, ASA REPRODUCTION SPECIALIST Carotid stenosis, symptomatic w/o infarct, bilat eral 04/28/2023 Overview (01/12/2025): Last Assessment & Plan: Carotid duplex from 05/10/2023- bilateral carotid artery stenosis (50-69%). A referral to CT surgery was sent by Shannon Flor APRN at last office visit. She is scheduled to see Dr. Alcantara on 06/06/2023. Assessment & Plan (01/28/2025 9:59 AM EDT): -- ASA, Lipitor REPRODUCTION SPECIALIST. Continued. Following Assessment & Plan (01/27/2025 2:14 PM EDT): -- ASA, Lipitor REPRODUCTION SPECIALIST. Continued. Following Assessment & Plan (01/26/2025 12:09 PM EDT): -- ASA, Lipitor REPRODUCTION SPECIALIST. Continued. Following Assessment & Plan (01/25/2025 12:22 PM EDT): -- ASA, Lipitor REPRODUCTION SPECIALIST. Continued. Following Assessment & Plan (01/24/2025 9:38 AM EDT): -- ASA, Lipitor REPRODUCTION SPECIALIST. Continued. Following Assessment & Plan (01/23/2025 1:07 PM EDT): -- ASA, Lipitor REPRODUCTION SPECIALIST. Continued. Following Assessment & Plan (01/22/2025 10:03 AM EDT): -- ASA, Lipitor REPRODUCTION SPECIALIST. Continued. Following Assessment & Plan (01/21/2025 12:19 PM EDT): -- ASA, Lipitor REPRODUCTION SPECIALIST. Continued. Following Assessment & Plan (01/20/2025 2:21 PM EDT): -- ASA, Lipitor REPRODUCTION SPECIALIST. Continued. Following Assessment & Plan (01/19/2025 1:36 PM EDT): -- ASA, Lipitor REPRODUCTION SPECIALIST. Continued. Following Assessment & Plan (01/18/2025 1:04 PM EDT): -- ASA, Lipitor REPRODUCTION SPECIALIST. Continued. Following Assessment & Plan (01/17/2025 1:00 PM EDT): -- ASA, Lipitor REPRODUCTION SPECIALIST. Continued. Following Assessment & Plan (01/16/2025 9:59 AM EDT): -- ASA, Lipitor REPRODUCTION SPECIALIST. Continued. Following Assessment & Plan (01/15/2025 11:35 AM EDT): -- ASA, Lipitor REPRODUCTION SPECIALIST. Continued. Following Assessment & Plan (01/15/2025 6:29 AM EDT): -- ASA, Lipitor REPRODUCTION SPECIALIST. Continued Assessment & Plan (01/15/2025 6:21 AM EDT): -- ASA, Lipitor REPRODUCTION SPECIALIST Assessment & Plan (01/15/2025 6:10 AM EDT): -- ASA, Lipitor REPRODUCTION SPECIALIST Assessment & Plan (01/12/2025 10:29 PM EDT): -- ASA, Lipitor REPRODUCTION SPECIALIST Coronary arteriosclerosis in [place] artery // Hx of CABG 04/09/2016 Overview [...] AM EDT): -- Coreg, Lipitor, ASA, [place] REPRODUCTION SPECIALIST. Continued Assessment & Plan (01/15/2025 6:21 AM EDT): -- Coreg, Lipitor, ASA, [place] REPRODUCTION SPECIALIST. Continued Assessment & Plan (01/15/2025 6:10 AM EDT): -- Coreg, Lipitor, ASA, [place] REPRODUCTION SPECIALIST. Continued -- CP -- Cardiology consulted -- [...] PM EDT): -- Coreg, Lipitor, ASA, [place] REPRODUCTION SPECIALIST Secondary open-angle glaucoma of right eye, ileana [...] PM EDT): Last A1c 4.8 in 03/2024. REPRODUCTION SPECIALIST meds include none. - hold off on FSBS, correctional algorithm - rpt A1c 5.3 - stable 05/20/25 Assessment & Plan (05/19/2025 3:11 PM EDT): Last A1c 4.8 in 03/2024. REPRODUCTION SPECIALIST meds include none. - hold off on FSBS, correctional algorithm - rpt A1c 5.3 - stable 05/19/25 Assessment & Plan (05/18/2025 8:38 AM EDT): Last A1c 4.8 in 03/2024. REPRODUCTION SPECIALIST meds include none. - hold off on FSBS, correctional algorithm - rpt A1c 5.3 Assessment & Plan (05/17/2025 9:16 AM EDT): Last A1c 4.8 in 03/2024. REPRODUCTION SPECIALIST meds include none. - hold off on FSBS, correctional algorithm - rpt A1c 5.3 Assessment & Plan (05/16/2025 2:50 PM EDT): Last A1c 4.8 in 03/2024. REPRODUCTION SPECIALIST meds include none. - hold off on FSBS, correctional algorithm - rpt A1c 5.3 Assessment & Plan (05/15/2025 2:22 PM EDT): Last A1c 4.8 in 03/2024. REPRODUCTION SPECIALIST meds include none. - hold off on FSBS, correctional algorithm - rpt A1c 5.3 Assessment & Plan (05/14/2025 10:10 AM EDT): Last A1c 4.8 in 03/2024. REPRODUCTION SPECIALIST meds include none. - hold off on FSBS, correctional algorithm - rpt A1c 5.3 Assessment & Plan (05/13/2025 9:08 AM EDT): Last A1c 4.8 in 03/2024. REPRODUCTION SPECIALIST meds include none. - hold off on FSBS, correctional algorithm - rpt A1c 5.3 Assessment & Plan (05/12/2025 10:17 AM EDT): Last A1c 4.8 in 03/2024. REPRODUCTION SPECIALIST meds include none. - hold off on FSBS, correctional algorithm - rpt A1c 5.3 Assessment & Plan (05/11/2025 7:12 AM EDT): Last A1c 4.8 in 03/2024. REPRODUCTION SPECIALIST meds include none. - hold off on FSBS, correctional algorithm - rpt A1c 5.3 Assessment & Plan (05/10/2025 1:54 PM EDT): Last A1c 4.8 in 03/2024. REPRODUCTION SPECIALIST meds include none. - hold off on FSBS, correctional algorithm - rpt A1c 5.3 Assessment & Plan (05/09/2025 7:00 AM EDT): Last A1c 4.8 in 03/2024. REPRODUCTION SPECIALIST meds include none. - hold off on FSBS, correctional algorithm - rpt A1c 5.3 Assessment & Plan (05/08/2025 6:56 AM EDT): Last A1c 4.8 in 03/2024. REPRODUCTION SPECIALIST meds include none. - hold off on FSBS, correctional algorithm - rpt A1c 5.3 Assessment & Plan (05/07/2025 7:10 AM EDT): Last A1c 4.8 in 03/2024. REPRODUCTION SPECIALIST meds include none. - hold off on FSBS, correctional algorithm - rpt A1c 5.3 Assessment & Plan (05/06/2025 9:31 AM EDT): Last A1c 4.8 in 03/2024. REPRODUCTION SPECIALIST meds include none. - hold off on FSBS, correctional algorithm - rpt A1c 5.3 Assessment & Plan (05/05/2025 1:00 PM EDT): Last A1c 4.8 in 03/2024. REPRODUCTION SPECIALIST meds include none. - hold off on FSBS, correctional algorithm - note metformin started - will stop given plans for angiogram this week - rpt A1c ordered Assessment & Plan (05/05/2025 12:57 PM EDT): Last A1c 4.8 in 03/2024. REPRODUCTION SPECIALIST meds include none. - hold off on FSBS, correctional algorithm - note metformin started - will stop given plans for angiogram this week - rpt A1c Assessment & Plan (05/03/2025 6:33 PM EDT): Cont pilot captain metformin Refusing SSI Assessment & Plan (05/02/2025 5:52 PM EDT): Cont pilot captain metformin Refusing SSI Assessment & Plan (05/01/2025 5:56 PM EDT): Cont pilot captain metformin Refusing SSI Mixed hyperlipidemia 09/30/2014 Overview (06/04/2024): Outpatient management Outpatient management Assessment & Plan (01/28/2025 9:59 AM EDT): -- Lipitor REPRODUCTION SPECIALIST. Continued home meds Assessment & Plan (01/27/2025 2:14 PM EDT): -- Lipitor REPRODUCTION SPECIALIST. Continued home meds Assessment & Plan (01/26/2025 12:09 PM EDT): -- Lipitor REPRODUCTION SPECIALIST. Continued home meds Assessment & Plan (01/25/2025 12:22 PM EDT): -- Lipitor REPRODUCTION SPECIALIST. Continued home meds Assessment & Plan (01/24/2025 9:38 AM EDT): -- Lipitor REPRODUCTION SPECIALIST. Continued home meds Assessment & Plan (01/23/2025 1:07 PM EDT): -- Lipitor REPRODUCTION SPECIALIST. Continued home meds Assessment & Plan (01/22/2025 10:03 AM EDT): -- Lipitor REPRODUCTION SPECIALIST. Continued home meds Assessment & Plan (01/21/2025 12:19 PM EDT): -- Lipitor REPRODUCTION SPECIALIST. Continued home meds Assessment & Plan (01/20/2025 2:21 PM EDT): -- Lipitor REPRODUCTION SPECIALIST. Continued home meds Assessment & Plan (01/19/2025 1:36 PM EDT): -- Lipitor REPRODUCTION SPECIALIST. Continued home meds Assessment & Plan (01/18/2025 1:04 PM EDT): -- Lipitor REPRODUCTION SPECIALIST. Continued home meds Assessment & Plan (01/17/2025 1:00 PM EDT): -- Lipitor REPRODUCTION SPECIALIST. Continued home meds Assessment & Plan (01/16/2025 9:59 AM EDT): -- Lipitor REPRODUCTION SPECIALIST. Continued home meds Assessment & Plan (01/15/2025 11:35 AM EDT): -- Lipitor REPRODUCTION SPECIALIST. Continued home meds Assessment & Plan (01/15/2025 6:29 AM EDT): -- Lipitor REPRODUCTION SPECIALIST. Continued Assessment & Plan (01/15/2025 6:21 AM EDT): -- Lipitor REPRODUCTION SPECIALIST Assessment & Plan (01/15/2025 6:10 AM EDT): -- Lipitor REPRODUCTION SPECIALIST Assessment & Plan (01/12/2025 10:29 PM EDT): -- Lipitor REPRODUCTION SPECIALIST Hypertension associated with diabetes 09/30/2014 Overview (06/04/2024): [...] (05/20/2025 12:54 PM EDT): Well controlled. - REPRODUCTION SPECIALIST coreg - monitor and adjust as needed -BP stable 05/20/25 Assessment & Plan (05/19/2025 11:25 AM EDT): Well controlled. - REPRODUCTION SPECIALIST coreg - monitor and adjust as needed -BP stable 05/19/25 Assessment & Plan (05/18/2025 8:38 AM EDT): Well controlled. - REPRODUCTION SPECIALIST coreg - monitor and adjust as needed -BP stable 05/18/25 Assessment & Plan (05/17/2025 9:16 AM EDT): Well controlled. - REPRODUCTION SPECIALIST coreg - monitor and adjust as needed -BP stable 05/17/25 Assessment & Plan (05/16/2025 2:50 PM EDT): Well controlled. - REPRODUCTION SPECIALIST coreg - monitor and adjust as needed -BP stable 05/16/25 Assessment & Plan (05/15/2025 2:22 PM EDT): Well controlled. - REPRODUCTION SPECIALIST coreg - monitor and adjust as needed -BP stable 05/15/25 Assessment & Plan (05/14/2025 2:51 PM EDT): Well controlled. - REPRODUCTION SPECIALIST coreg - monitor and adjust as needed -BP stable 05/14/25 Assessment & Plan (05/13/2025 1:41 PM EDT): Well controlled. - REPRODUCTION SPECIALIST coreg - monitor and adjust as needed -Blood pressure 113/46 Assessment & Plan (05/12/2025 10:17 AM EDT): Well controlled. - REPRODUCTION SPECIALIST coreg - monitor and adjust as needed -Blood pressure 122/57 Assessment & Plan (05/11/2025 7:12 AM EDT): Well controlled. - REPRODUCTION SPECIALIST coreg - monitor and adjust as needed -Blood pressure 116/76 Assessment & Plan (05/10/2025 1:54 PM EDT): Well controlled. - REPRODUCTION SPECIALIST coreg - monitor and adjust as needed -Blood pressure 116/76 Assessment & Plan (05/09/2025 10:25 AM EDT): Well controlled. - REPRODUCTION SPECIALIST coreg - monitor and adjust as needed -Blood pressure 128/66 Assessment & Plan (05/08/2025 1:05 PM EDT): Well controlled. - REPRODUCTION SPECIALIST coreg - monitor and adjust as needed -Blood pressure 124/66 Assessment & Plan (05/07/2025 7:10 AM EDT): Well controlled. - REPRODUCTION SPECIALIST coreg - monitor and adjust as needed Assessment & Plan (05/06/2025 9:31 AM EDT): Well controlled. - REPRODUCTION SPECIALIST coreg - monitor and adjust as needed Assessment & Plan (05/05/2025 1:00 PM EDT): Well controlled. - REPRODUCTION SPECIALIST coreg - monitor and adjust as needed Assessment & Plan (05/05/2025 12:57 PM EDT): Well controlled. - REPRODUCTION SPECIALIST coreg - monitor and adjust as needed [...] Plan (01/20/2025 2:21 PM EDT): -- Coreg REPRODUCTION SPECIALIST. Continued -- In acceptable range. Stable. BP Readings from Last 1 Encounters: 01/20/25 109/62 Assessment & Plan (01/19/2025 1:36 PM EDT): -- Coreg REPRODUCTION SPECIALIST. Continued -- In acceptable range. Stable. BP Readings from Last 1 Encounters: 01/19/25 100/42 Assessment & Plan (01/18/2025 1:04 PM EDT): -- Coreg REPRODUCTION SPECIALIST. Continued -- In acceptable range. Stable. BP Readings from Last 1 Encounters: 01/18/25 106/41 Assessment & Plan (01/17/2025 1:00 PM EDT): -- Coreg REPRODUCTION SPECIALIST. Continued -- In acceptable range. Stable. BP Readings from Last 1 Encounters: 01/17/25 119/46 Assessment & Plan (01/16/2025 9:59 AM EDT): -- Coreg REPRODUCTION SPECIALIST. Continued -- In acceptable range. Stable. BP Readings from Last 1 Encounters: 01/16/25 144/54 Assessment & Plan (01/15/2025 11:35 AM EDT): -- Coreg REPRODUCTION SPECIALIST. Continued -- In acceptable range BP Readings from Last 1 Encounters: 01/15/25 125/54 Assessment & Plan (01/15/2025 6:29 AM EDT): -- Coreg REPRODUCTION SPECIALIST. Continued -- In acceptable range Assessment & Plan (01/15/2025 6:21 AM EDT): -- Coreg REPRODUCTION SPECIALIST -- In acceptable range Assessment & Plan (01/15/2025 6:10 AM EDT): -- Coreg REPRODUCTION SPECIALIST Assessment & Plan (01/12/2025 10:29 PM EDT): -- Coreg REPRODUCTION SPECIALIST Cervical disc disease 09/30/2014 Peripheral neuropathy 09/30/2014 Overview (01/12/2025): Continue outpatient management Resolved Problems Problem Noted Date Diagnosed Date Resolved Date Acute heart failure with pre served ejection fraction 06/02/2025 06/02/2025 Pleural effusion 06/04/2024 06/04/2024 Encounters Date Type Department Care Team Description 08/05/2025 3:45 PM EDT Office Visit [facility] [address] [place] [address] Drive [address] [place] [address] Vargas Wolf MD PAD (peripheral artery disease) (Primary Dx); Critical limb ischemia of left lower extremity (HCC) 06/28/2025 Telephone [facility] [address] [place] [phone] Sukh Garner DO Appointment Needed 06/23/2025 1:13 PM EDT - 07/02/2025 10:57 AM EDT Hospital Encounter [facility] [address] [place] [address] Stephan Rodriguez MD Nienaber, Kirk A, MD Atrial fibrillation with RVR (HCC) (Primary Dx); Acute pulmonary edema (HCC); Elevated troponin; Pleural effusion Discharge Disposition: Jail Facility 06/12/2025 8:28 PM EDT - 06/12/2025 11:17 PM EDT Emergency [facility] [address] [place] [id number] Rhina Gooden DO Acute UTI (Primary Dx) Discharge Disposition: Nursing Facility 05/24/2025 8:15 AM EDT - 05/24/2025 10:45 AM EDT [facility] [place] [address] Vargas Wolf MD LEG AMPUTATION ABOVE KNEE / REVISION ABOVE KNEE AMPUTATION 05/24/2025 8:07 AM EDT Anesthesia Event [facility] [place] [address] Tano Justice DO Trog, Lynnsey, BUSINESS DATA ANALYST 05/24/2025 7:20 AM EDT Ancillary Procedure [facility] SURGERY [facility] [place] [address] Donnie Kaur MD Adler, Jordan M, MD Connelly, Kevin D, MD 05/23/2025 3:01 AM EDT Anesthesia Event [facility] 3C PULMONARY [facility] [place] [address] Sheryl Horton, BUSINESS DATA ANALYST 05/21/2025 Orders Only [facility] [address] [place] [address] Drive [address] [place] [address] Mary Lombardi MA PAD (peripheral artery disease); Critical limb ischemia of left lower extremity (HCC) 04/30/2025 4:07 PM EDT - 06/10/2025 4:06 PM EDT Hospital Encounter [facility] 5D TCU [facility] [place] [address] Donnie Kaur MD Adler, Jordan M, MD Connelly, Kevin D, MD Upadhayay, Niraj, MD Wound dehiscence (Primary Dx); Typical atrial flutter (HCC); Left foot pain; PAD (peripheral artery disease); Critical limb ischemia of left lower extremity (HCC); Preop testing Discharge Disposition: Jail Facility from Last 3 Months Surgical History [...] IR REVAS FEM POP ART UNILAT W REPRODUCTION SPECIALIST 01/30/2025 IR REVAS FEM POP ART UNILAT W REPRODUCTION SPECIALIST 01/30/2025 Vargas Wolf MD [facility] IR CARDIAC [...] Leg/Left Left Above Knee Amputation; Surgeon: Vargas oWlf MD; Location: [facility] MAIN OR; Service: Vascular [...] e alcohol) [facility] Utilities Answer Date Recorded In the past [...] Date Recorded PHQ-2 Total Score 0 06/23/2025 [facility] - [...] money to get more. Never true 06/23/2025 [facility] IP Transportation Answer D ate Recorded [...] EST Office Visit [facility] [address] [place] [address] Drive [address] [place] [address] Vargas Wolf MD [address] [place] [address] [place] [address] Health Maintenance Due Date Last Done [...] this topic Medical Devices Implanted Type Area Topper Press Operator Automatic Device Identifier Shelf Expiration Date Model / Serial / Lot Stent Omnilink Elite [id number] Otw Be Prmnt 0.035in Gw 6fr Stent-Omn ilink [facility]:VASC DEV 01/14/2026 [id number] / / [id number] Stent Omnilink Elite [id number] Otw Be Prmnt 0.035in Gw 6fr Stent-Omn ilink [facility]:VASC DEV 01/14/2026 [id number] / / [id number] Mtrx Tiss 23ga Viaflow Hmn Plcnt Flw Premx Amb Temp Ndl 2cc - [id number] Implanted:Qty: 1 on 03/09/2025 by Dacia Mills DPM at [facility] Left: Foot [employer] GRP:[employer] TECH 11/10/2028 [id number] / [id number] / Procedures Procedure Name Priority Date/Time [...] were not included. 06/26/2025 Skyler Bautista [id number] Reason for Consult: Urinary retention Requesting Physician: Duong Vitale MD History Obtained From: Patient, chart review HISTORY OF PRESENT ILLNESS: The patient is a 84 y.o. female with a PMHx of PAD, CHF, Afib,CKD, DM, admitted on 06/23/2025 to [facility] for AFIB with RVR. She iscurrently in ICU for AFIB with tachycardia, seizure like activity, acuteon chronic HF. Urology has been consulted for Urinary Retention. Patientwith elevated PVRs, has been straight cath for 850cc several times sinceadmission. Indwelling silva placed last night, 06/25/2025, by SLEEVE BOTTOM FELLER. Ofnote, the patient was seen by our group [...] IR REVAS FEM POP ART UNILAT W REPRODUCTION SPECIALIST 01/30/2025 IR REVAS FEM POP ART UNILAT W REPRODUCTION SPECIALIST 01/30/2025 Vargas Wolf MD [facility] IR [...] 12:16 PM EDT IP CONSULT TO MEDICAL LANDSCAPE PHOTOGRAPHER Routine 06/24/2025 11:57 AM EDT Procedure Note [...] with Atrial Fibrillation a fib rvr from [facility]. they report HR of 180, per squad HR 103. Skyler Bautista is a(n)84 y.o. female is being evaluated following ICUadmission for acute hypoxic respiratory failure, seizures andbradycardia. HPI: Ms. Bautista is an 84 year old female with a PMHx significant forA-fib, PE, HFpEF, subarachnoid hemorrhage, TBI, T2DM, CKD, PVD, and recentleft AKA. She was at a correction after recent admission for AKA withcomplaints of [...] with Afib with RVR and rate in xde302's. Trops: 92 -> 83, K: 4.5, creatinine: [...] IR REVAS FEM POP ART UNILAT W REPRODUCTION SPECIALIST 01/30/2025 IR REVAS FEM POP ART UNILAT W REPRODUCTION SPECIALIST 01/30/2025 Vargas Wolf MD [facility] IR [...] Mills DPM;Location: [facility] MAIN OR; Service: Podiatry FH: No [...] true Transportation Needs: No Transportation Needs (06/23/2025) [facility] IP Transportation In the past 12 months, has lack of reliable transportation kept you frommedical appointments, meetings, work or from getting things needed fordaily living?: No Physical Activity: Inactive (06/23/2025) Exercise Vital Sign Days of Exercise per Week: 0 days Minutes of Exercise per Session: 0 min Stress: No Stress Concern Present (06/23/2025) [facility] Occupational Health - Occupational StressQuestionnaire Feeling of Stress : Not at all Social Connections: Low Risk (10/30/2023) Received from [facility] ([place], [place], [place], [place]) Family and Community Support Help with Day to Day Activities: Not on file Feeling Lonely or Isolated: Not on file Intimate Partner Violence: Not At Risk (08/06/2024) Received from [facility] Humiliation, Afraid, Rape, and Kick questionnaire Fear of Current or Ex-Partner: No Emotionally Abused: No Physically Abused: No Sexually Abused: No Housing Stability: Low Risk (08/06/2024) Received from [facility] Housing Stability Vital Sign Unable to [...] fUROsemide 40 mg Intravenous Daily Insulin Calculator (GOVERNMENT SERVICE EXECUTIVE) - FSBS (Correction Only) Intake Input 1 [...] 0 Taking nalOXone (NARCAN) 4 mg/actuation Nasl [place], Non-Aerosol 0.1 mL by Nasalroute as needed for Opioid Reversal. [place] the contents of one device(0.1mL) into one [...] Date 06/24/25 0700 - 06/25/25 0659 Shift [id number] 24 Hour Total INTAKE I.V.(mL/kg/hr) 4.5 4.5 [...] (%): 35 % Labs: ABG Recent Labs 06/24/255 06/24/25 0526 PH 7.38 7.45 PCO2 38 [...] 12 LEAD Result Date: 06/24[facility] Pat Name: SKYLER BAUTISTA Department: DEPIDPatient ID: [id number] [facility] Gender:Female Net Applications Developer: Reza : [id number] By: DONNIE KINNEY Order Number: [id number] MD: Sukh GarnerMeasurements Intervals [place] Rate:54 P: 0 [place]: 0QRS: 39 QRSD: 89 T:0 QT: 462 [...] the ordering clinician. EK EKG 12 LEAD [facility] Date:2025-06-23 Pat Name: SKYLER NICOLEVAN Department: DEPIDPatient ID: [id number] Room: [facility] Gender:Female Net Applications Developer: [id number] : [id number] By: STEPHAN Earl Order Number: [id number] : Jaycob Sandoval MeasurementsIntervals [place] Rate: 139P: 0 [place]: 0QRS: 65 QRSD: 82 T: 26QT: 286 QTc: 436InterpretiveStatements ATRIAL FIBRILLATION WITH RAPID VENTRICULAR RESPONSE POSSIBLEANTEROSEPTAL MYOCARDIAL INFARCTION, PROBABLY OLD Electronically Signed [id number] 19:29:[address] ANGIOGRAM [...] aortic arch aneurysm. Nopneumothorax. Small left and [id number]-eb-kqdmoolg right pleural effusions.Emphysema. Opacities dependently in the [...] ordered Insulin Regimen: Q4H CCI Last BM: REPRODUCTION SPECIALIST Assessment Acute hypoxic respiratory failure Seizure Atrial [...] GI prophylaxis: Protonix CODE status: DNR Limited BUSINESS DATA ANALYST critical care time: 17 minutes Spencer Luna, BUSINESS DATA ANALYST SCANNED EKG 06/24/2025 10:55 AM EDT IP [...] I am seeing in neurologic consultation at therequest of Duong Vitale MD for evaluation of [...] Hospital Problems Diagnosis *Atrial fibrillation with RVR ([facility]) Seizure ([facility]) Respiratory arrest ([facility]) Atrial fibrillation with slow ventricular response (HCC) [...] insulin (HCC) Hypertension associated with diabetes ([facility]) No current facility-administered medications on [...] Patch 0 nalOXone (NARCAN) 4 mg/actuation Nasl [place], Non-Aerosol 0.1 mL by Nasalroute as needed for Opioid Reversal. [place] the contents of one device(0.1mL) into one [...] C) Oral 50 20 98 % -- 06/24/2544 -- -- -- 50 20 100 % -- 06/24/2543 -- -- -- -- -- -- 126 lb 1.7 oz (57.2 kg) 06/24/2541 96/41 -- -- (!) 44 -- 98 % -- 06/24/2539 94/51 -- -- (!) 44 -- 96 % -- 06/24/2533 92/65 -- -- -- -- 100 % -- 06/24/2523 -- -- -- (!) 24 -- -- -- 06/24/257 (!) 65/31 -- -- (!) 28 -- [...] for follow up and staple removal Sophie ZAIPEN. She is currentlycritically ill in ICU, intubated and sedated. Will assess L RUPALI stump forstaple removal once medically stable/improved. Please call with any additional questions or concerns. Miryam Guzman, RAIL CAR REPAIRMAN Vascular Surgery ECG AND WAVEFORMS - TELEMETRY [...] 06/23* for shortness of breath.She was at correction recovering from recent AKA and developed shortnessof breath for four days REPRODUCTION SPECIALIST. In the ED she was noted to [...] artery occlusion CHF (congestive heart failure) ([facility]) Diabetes mellitus (HCC) not currently [...] years ago. Urinary incontinence Urinary tract infection REPRODUCTION SPECIALIST Medications: Prior to Admission medications Medication Sig [...] Montiel MD nalOXone (NARCAN) 4 mg/actuation Nasl [place], Non-Aerosol 0.1 mL by Nasalroute as needed for Opioid Reversal. [place] the contents of one device(0.1mL) into one [...] 40 mg Intravenous BID Diuretic Insulin Calculator (GOVERNMENT SERVICE EXECUTIVE) - FSBS (Correction Only) Intake Input 1 [...] IR REVAS FEM POP ART UNILAT W REPRODUCTION SPECIALIST 01/30/2025 IR REVAS FEM POP ART UNILAT W REPRODUCTION SPECIALIST 01/30/2025 Vargas Wolf MD [facility] IR [...] Active Problem List Diagnosis Coronary arteriosclerosis in [place] artery // Hx of CABG Closed nondisplaced [...] left foot Exostosis of toe Atherosclerosis of [place] artery of extremity Abscess of toe of [...] most recent cardiovascular imaging studies available in [facility] EMR werereviewed at time of [...] Bilateral pleural effusions and dependent opacities -atelectasis -REPRODUCTION SPECIALIST lasix PRN -Currently on IV diuresis this admission -Volume status appears to be improving - likely transition to PO tomorrow Coronary Artery Disease -Remote history of CABG and subsequent PCIs -REPRODUCTION SPECIALIST lipitor 40 mg, coreg 25 mg BID, ranexa 500 mg BID History of PE -No REPRODUCTION SPECIALIST AC with history of ICH Elevated Troponin -Troponin 92, 83 -EKG afib RVR -ECHO pending Type 2 Diabetes -A1c 5.3 Hypertension -REPRODUCTION SPECIALIST coreg 25 mg BID Hyperlipidemia -REPRODUCTION SPECIALIST lipitor 40 mg Peripheral Vascular Disease -s/p recent left AKA Plan: Check ECHO Holding rate slowing medications Continue telemetry Reduce IV diuresis to daily - likely transition to PO tomorrow May need eventual EP consult for consideration of PPM Further input from Dr. Pascual Harris, BUSINESS DATA ANALYST Heart and Vascular 06/24/2025 Disposition Perspective - [...] AKA as of 05/24/2025, who wasadmitted from correction with rapid atrial fibrillation and acutehypoxic respiratory failure. A fib w/ RVR on admission, placed on dilt gtt, became bradycardic andhypotension, had subsequent PEA arrest, now s/p ETT and left IJ centralline. ECG on admission w/ rapid atrial fibrillation, possible old anteroseptalMI Hs Trop 92-83 NT Pro BNP [id number] [facility] 11/25/2022- 1. CAD s/p CABG 2 of [...] comorbidities, overall guarded prognosis. Sukh Garner, DO, [facility] ADMIT Routine 06/23/2025 3:34 PM EDT ADMIT [...] AIRWAY PLACEMENT Routine 05/24/2025 8:13 AM EDT [place] AMPUTATION THIGH THROUGH FEMUR ANY LEVEL 05/24/2025 [...] MAGNESIUM LEVEL Routine 05/16/2025 3:24 AM EDT HEMOGLOBIN A1C Routine 05/03/2025 6:37 AM EDT from Last 3 Months or Most Recently Relevant to Health Maintenance Results * (ABNORMAL) GLUCOSE METER POC (07/02/2025 8:08 AM EDT) Only the most recent of68 resultswithin the time period is included. [facility] Glucose Meter POC 112(H) 70 - 100 mg/dL 07/02/2025 8:11 AM EDT [facility] Sample Type Capillary 07/02/2025 8:11 AM EDT [facility] Patient Status Non-Critical Patient 07/02/2025 8:11 AM EDT [facility] Blood BLOOD SPECIMEN / Unknown 07/02/2025 8:08 AM EDT 07/02/2025 8:11 AM EDT Duong Vitale MD POINT OF CARE TEST ORDERABLES Final Result Performing Organization Address City/[facility] Co de Phone Number [facility] [address] [place], [place] [id number] * ECG AND WAVEFORMS - TELEMETRY (07/01/2025 7:05 PM EDT) Only the most recent of78 resultswithin the time period is included. Pathologist [facility] ECG INTERPRET Sinus Arrythmia [facility] 07/01/2025 7:05 PM EDT Narrative [facility] - 07/01/2025 7:37 PM EDT ROUTINE/PAC/PVC/af [place] 0.18 QRS 0.09 RR 0.58 QT 0.35 QTc 0.46 See Clinical Report link for waveform capture us Unknown Provider POINT OF CARE CARDIOLOGY Final Result Performing Organization Address [facility] Co de Phone Number [facility] [address] [place] [address] * (ABNORMAL) COMPREHENSIVE METABOLIC PANEL (07/01/2025 10:56 AM EDT) Only the most recent of8 resultswithin the time period is included. Sodium 138 136 - 145 mmol/L 07/01/2025 11:22 AM EDT [facility] Potassium 3.6 3.5 - 5.0 mmol/L 07/01/2025 11:22 AM EDT [facility] Chloride 104 98 - 107 mmol/L 07/01/2025 11:22 AM EDT [facility] Total CO2 22 22 - 29 mmol/L 07/01/2025 11:22 AM EDT [facility] Anion Gap 12 7 - 16 mmol/L 07/01/2025 11:22 AM EDT [facility] Calcium 8.9 8.8 - 10.4 mg/dL 07/01/2025 11:22 AM EDT [facility] Glucose Lvl 128(H) 70 - 99 mg/dL 07/01/2025 11:22 AM EDT [facility] BUN 25(H) 8 - 23 mg/dL 07/01/2025 11:22 AM EDT [facility] Creatinine 0.82 0.51 - 1.30 mg/dL 07/01/2025 11:22 AM EDT [facility] Albumin 3.7 3.2 - 4.6 gm/dL 07/01/2025 11:22 AM EDT [facility] Total Protein 7.1 6.4 - 8.3 gm/dL 07/01/2025 11:22 AM EDT [facility] Bili Total 0.6 0.2 - 1.3 mg/dL 07/01/2025 11:22 AM EDT [facility] ALT 18 <=41 U/L 07/01/2025 11:22 AM EDT [facility] AST 35 <=40 U/L 07/01/2025 11:22 AM EDT [facility] Alk Phos 151(H) 36 - 123 U/L 07/01/2025 11:22 AM EDT [facility] eGFR (CKD-EPIcr 2020) 70 >=60 mL/min/1.7 3 m2 07/01/2025 11:22 AM EDT [facility] Comment:Estimated GFR was ca lculated using the CKD-EPIcr (2020) equation refit without race. The equation is recommended by the National Kidney Foundation - [place] [employer] of Nephrology Task Force. Blood VENOUS BLOOD / Unknown Venipuncture / Unknown 07/01/2025 10:56 AM EDT 07/01/2025 10:59 AM EDT us Jacob Horowitz MD CHEMISTRY ORDERABLES Final Resul t [facility] [address] [place] [address] * (ABNORMAL) CBC WITH DIFF (06/28/2025 11:26 AM EDT) Only the most recent of4 resultswithin the time period is included. WBC 4.3 3.7 - 10.3 x10(3)/mcL 06/28/2025 11:33 AM EDT [facility] RBC 2.62(L) 3.90 - 5.20 x10(6)/mcL 06/28/2025 11:33 AM EDT [facility] Hgb 9.7(L) 11.2 - 15.7 g/dL 06/28/2025 11:33 AM EDT [facility] Hct 30.2(L) 34.0 - 45.0 % 06/28/2025 11:33 AM EDT [facility] MCV 115.3(H) 80.0 - 100.0 fL 06/28/2025 11:33 AM EDT [facility] MCH 37.0(H) 26.0 - 34.0 pg 06/28/2025 11:33 AM EDT [facility] MCHC 32.1 30.7 - 35.5 g/dL 06/28/2025 11:33 AM EDT [facility] RDW 18.9(H) <=14.9 % [facility]25 [facility] Platelet 86(L) 155 - 369 x10(3)/mcL 06/28/2025 11:33 AM EDT [facility] MPV 11.8 8.8 - 12.5 fL 06/28/2025 11:33 AM EDT [facility] Neut Percent 52.1 % 06/28/2025 11:33 AM EDT [facility] Comment:Neutrophils equals s egs plus bands Imm Gran% 0.5 % 06/28/2025 11:33 AM EDT [facility] Comment:Automated count of m etamyelocytes, myelocytes and promyelocytes. Lymph Percent 40.1 % 06/28/2025 11:33 AM EDT [facility] [place] Percent 6.6 % 06/28/2025 11:33 AM EDT [facility] Eos Percent 0.2 % 06/28/2025 11:33 AM EDT [facility] Baso Percent 0.5 % 06/28/2025 11:33 AM EDT [facility] Neut # 2.2 1.6 - 6.1 x10(3)/[facility] 06/28/2025 11:33 AM EDT [facility] Comment:Neutrophils equals s egs plus bands IMMGRAN# 0.0 0.0 - 0.1 x10(3)/[facility] 06/28/2025 11:33 AM EDT [facility] Comment:Automated count of m etamyelocytes, myelocytes and promyelocytes. An absolute IG <0.1 is reported as 0.0. Lymph # 1.7 1.2 - 3.9 x10(3)/[facility] 06/28/2025 11:33 AM EDT [facility] [place] # 0.3 0.3 - 0.9 x10(3)/[facility] 06/28/2025 11:33 AM EDT [facility] Eos# 0.0 0.0 - 0.5 x10(3)/[facility] 06/28/2025 11:33 AM EDT [facility] [facility] Baso # 0.0 0.0 - 0.1 x10(3)/[facility] 06/28/2025 11:33 AM EDT [facility] Blood VENOUS BLOOD / Unknown Venipuncture / Unknown 06/28/2025 11:26 AM EDT 06/28/2025 11:30 AM EDT us Jacob Horowitz MD HEMATOLOGY ORDERABLES Final Resu lt [facility] [address] [place] [address] * PHOSPHORUS LEVEL (06/28/2025 11:26 AM EDT) Only the most recent of5 resultswithin the time period is included. Phosphorus 2.6 2.5 - 4.5 mg/dL 06/28/2025 11:55 AM EDT [facility] Blood VENOUS BLOOD / Unknown Venipuncture / Unknown 06/28/2025 11:26 AM EDT 06/28/2025 11:30 AM EDT Jacob Horowitz MD CHEMISTRY ORDERABLES Final Resul t Performing Organization Address [facility] de Phone Number [facility] [address] [place] [address] * MAGNESIUM LEVEL (06/28/2025 11:26 AM EDT) Only the most recent of13 resultswithin the time period is included. Magnesium 1.8 1.6 - 2.4 mg/dL 06/28/2025 12:04 PM EDT [facility] Blood VENOUS BLOOD / Unknown Venipuncture / Unknown 06/28/2025 11:26 AM EDT 06/28/2025 11:30 AM EDT Jacob Horowitz MD CHEMISTRY ORDERABLES Final Resul t Performing Organization Address City/[facility] de Phone Number [facility] [address] [place] [address] * EXTRA LAVENDER (06/27/2025 8:28 AM EDT) Blood VENOUS BLOOD / Unknown Venipuncture / Unknown 06/27/2025 8:28 AM EDT 06/27/2025 8:36 AM EDT us Duong Vitale MD HEMATOLOGY ORDERABLES Final R esult Performing Organization Address City/[facility] de Phone Number [facility] [address] [place] [address] * (ABNORMAL) BASIC METABOLIC PANEL (06/27/2025 8:28 AM EDT) Only the most recent of16 resultswithin the time period is included. Sodium 138 136 - 145 mmol/L 06/27/2025 8:56 AM EDT [facility] Potassium 4.1 3.5 - 5.0 mmol/L 06/27/2025 8:56 AM EDT [facility] Chloride 106 98 - 107 mmol/L 06/27/2025 8:56 AM EDT [facility] Total CO2 21(L) 22 - 29 mmol/L 06/27/2025 8:56 AM EDT [facility] Anion Gap 11 7 - 16 mmol/L 06/27/2025 8:56 AM EDT [facility] Calcium 8.3(L) 8.8 - 10.4 mg/dL 06/27/2025 8:56 AM EDT [facility] Glucose Lvl 112(H) 70 - 99 mg/dL 06/27/2025 8:56 AM EDT [facility] BUN 13 8 - 23 mg/dL 06/27/2025 8:56 AM EDT [facility] Creatinine 0.86 0.51 - 1.30 mg/dL 06/27/2025 8:56 AM EDT [facility] eGFR (CKD-EPIcr 2020) 66 >=60 mL/min/1.7 3 m2 06/27/2025 8:56 AM EDT [facility] Comment:Estimated GFR was ca lculated using the CKD-EPIcr (2020) equation refit without race. The equation is recommended by the National Kid[employer] - [place] [employer] of Nephrology Task Force. Blood VENOUS BLOOD / Unknown Venipuncture / Unknown 06/27/2025 8:28 AM EDT 06/27/2025 8:35 AM EDT Lianet Harris BUSINESS DATA ANALYST CHEMISTRY ORDERABLES Fi nal Result [facility] [address] [place], [place] [id number] * POTASSIUM LEVEL (06/26/2025 2:27 PM EDT) Only the most recent of2 resultswithin the time period is included. Potassium 4.5 3.5 - 5.0 mmol/L 06/26/2025 2:46 PM EDT [facility] Blood VENOUS BLOOD / Unknown Venipuncture / Unknown 06/26/2025 2:27 PM EDT 06/26/2025 2:34 PM EDT us Jacob Horowitz MD CHEMISTRY ORDERABLES Final Resul t [facility] [address] [place] [id number] * US RENAL AND BLADDER (06/26/2025 12:44 [...] evaluation of the kidneys and bladder with pharmacy sales representative images and math interventionist notes sent to PACS for radiologist review. [...] sonographic evaluation of the kidneys andbladder with pharmacy sales representative images and math interventionist notes sent to PACS forradiologist review. FINDINGS: [...] 6:31 AM EDT) Only the most recent of24 resultswithin the time period is included. WBC 4.6 3.7 - 10.3 x10(3)/mcL 06/26/2025 6:42 AM EDT [facility] RBC 2.48(L) 3.90 - 5.20 x10(6)/mcL 06/26/2025 6:42 AM EDT [facility] Hgb 9.0(L) 11.2 - 15.7 g/dL 06/26/2025 6:42 AM EDT [facility] Hct 27.4(L) 34.0 - 45.0 % 06/26/2025 6:42 AM EDT [facility] MCV 110.5(H) 80.0 - 100.0 fL 06/26/2025 6:42 AM EDT [facility] MCH 36.3(H) 26.0 - 34.0 pg 06/26/2025 6:42 AM EDT [facility] MCHC 32.8 30.7 - 35.5 g/dL 06/26/2025 6:42 AM EDT [facility] RDW 19.3(H) <=14.9 % 06/26/2025 6:42 AM EDT [facility] Platelet 87(L) 155 - 369 x10(3)/mcL 06/26/2025 6:42 AM EDT [facility] MPV 12.9(H) 8.8 - 12.5 fL 06/26/2025 6:42 AM EDT [facility] Blood VENOUS BLOOD / Unknown Venipuncture / Unknown 06/26/2025 6:31 AM EDT 06/26/2025 6:37 AM EDT Duong Vitale MD HEMATOLOGY ORDERABLES Final R esult Performing Organization Address [facility] de Phone Number [facility] [address] [place] [place] [address] * (ABNORMAL) NT PROBNP (06/26/2025 6:31 AM EDT) Only the most recent of4 resultswithin the time period is included. NT Pro-BNP 7,743(H) <=624 pg/mL 06/26/2025 7:09 AM EDT [facility] Blood VENOUS BLOOD / Unknown Venipuncture / Unknown 06/26/2025 6:31 AM EDT 06/26/2025 6:37 AM EDT Narrative [facility] - 06/26/2025 7:09 AM EDT An [...] ORDERABLES Final Re sult Performing Organization Address [facility] de Phone Number [facility] [address] [place] [address] * EEG ED/ICU REMOTE MONITORING (06/25/2025 3:28 [...] without any parasagittal coverage (rapid EEG - MCH+ibOpGen device). Computer selected EEG is reviewed as well as background features and all clinically significant events. TECHNICAL SUMMARY: This is a 10 channel referential and bipolar EEG recorded in a digital format on the Youca.st device. This device is designed to detect [...] - 7.42 pH 06/25/2025 11:14 AM EDT [facility] pCO2 Venous 37(L) 41 - 51 mmHg 06/25/2025 11:14 AM EDT [facility] pO2 Venous 50(H) 25 - 40 mmHg 06/25/2025 11:14 AM EDT [facility] Comment:Interpret with cauti on. Not recommended to evaluate patient's oxygenation status. Base Excess Martín 0.0 mmol/L 09/09/202 5 11:14 AM EDT [facility] Hco3 Venous 24.3 24.0 - 28.0 mmol/L 06/25/2025 11:14 AM EDT [facility] CO2 Total Martín 23(L) 25 - 29 mmol/L 06/25/2025 11:14 AM EDT [facility] O2 Sat. Venous 83.5(H) 40.0 - 70.0 % 06/25/2025 11:14 AM EDT [facility] Inspired O2 25 06/25/2025 11:14 AM EDT [facility] Blood VENOUS STRUCTURE / Unknown Line / Unknown 06/25/2025 10:58 AM EDT 06/25/2025 11:06 AM EDT us Gabby Heredia BUSINESS DATA ANALYST CHEMISTRY ORDERABLES Final Resul t [facility] [address] [place], [place] [id number] * CT HEAD WO CONTRAST (06/24/2025 2:37 [...] of the ordering clinician. Rusty Sawyer MD IM CT ORDERABLES Mita l Result * EC [...] - 7.45 pH 06/24/2025 5:39 AM EDT [facility] pCO2 31(L) 35 - 45 mmHg 06/24/2025 5:39 AM EDT [facility] pO2 86 80 - 100 mmHg 06/24/2025 5:39 AM EDT [facility] HCO3 21.8(L) 22.0 - 26.0 mmol/L 06/24/2025 5:39 AM EDT [facility] TCO2 21(L) 22 - 29 mmol/L 06/24/2025 5:39 AM EDT [facility] Base Excess -1.8 -2.0 - 3.0 mmol/L 06/24/2025 5:39 AM EDT [facility] O2 Sat 97.7 95.0 - 98.0 % 06/24/2025 5:39 AM EDT [facility] Inspired O2 50 06/24/2025 5:39 AM EDT [facility] P/F Ratio 172(L) 300 - 500 mmHg 06/24/2025 5:39 AM EDT [facility] Comment: P/F ratio alone cannot diagnose ARDS. However, the following scale may be used to help classify Adult Respiratory Distress Syndrome (ARDS) severity: 200-300: Mild ARDS 100-199: Moderate ARDS <100: Severe ARDS Blood ARTERIAL BLOOD / Unknown Arterial / Unknown 06/24/2025 5:26 AM EDT 06/24/2025 5:32 AM EDT us John Rich MD CHEMISTRY ORDERABLES Final Resu lt Performing Organization Address [facility] Co de Phone Number [facility] [address] [place] [address] * (ABNORMAL) TSH REFLEX TO FT4 (06/24/2025 5:10 AM EDT) TSH Reflex 10.400(H) 0.270 - 4.200 mcIU/mL 06/24/2025 2:51 PM EDT [facility] Blood VENOUS BLOOD / Unknown Venipuncture / Unknown 06/24/2025 5:10 AM EDT 06/24/2025 5:32 AM EDT Narrative [facility] - 06/24/2025 2:51 PM EDT Ingestion of angie doses of biotin (>5 mg/day) taken within 8 hours of drawing blood sample can interfere with this immunoassay test. us Lianet Harris APRN CHEMISTRY ORDERABLES Fi nal Result Performing Organization Address [facility] de Phone Number [facility] [address] [place] [address] , [place] [address] * TRIGLYCERIDES (06/24/2025 5:10 AM EDT) Triglyceride 107 <150 mg/dL 06/24/2025 8:05 AM EDT [facility] Comment: < 150 Normal 150 - 199 Borderline High 200 - 499 High >= 500 Very High Blood VENOUS BLOOD / Unknown Venipuncture / Unknown 06/24/2025 5:10 AM EDT 06/24/2025 5:32 AM EDT us Donnie Kinney MD CHEMISTRY ORDERABLES Final Re sult Performing Organization Address City/[facility] Co de Phone Number [facility] [address] [facility] , [address] [place] [phone] * T4, FREE (THYROXINE) (06/24/2025 5:10 AM EDT) Free T4 0.98 0.80 - 1.80 ng/dL 06/24/2025 3:36 PM EDT [facility] Blood VENOUS BLOOD / Unknown Venipuncture / Unknown 06/24/2025 5:10 AM EDT 06/24/2025 5:32 AM EDT Narrative [facility] - 06/24/2025 3:36 PM EDT Ingestion of angie doses of biotin (>5 mg/day) taken within 8 hours of drawing blood sample can interfere with this immunoassay test. Lianet Harris BUSINESS DATA ANALYST CHEMISTRY ORDERABLES Fi nal Result [facility] [address] [facility] , [place] [address] * XR CHEST AP PORTABLE (06/24/2025 4:17 [...] AM EDT Impressions 06/24/2025 8:09 AM EDT [facility] [place] Test Date: 2025-06-24 Pat Name: [facility] Department: DEPID Room: [facility] Gender: Female Net Applications Developer: Reza : 1940 Requested By: DONNIE KINNEY Order Number: [id number] Reading MD: Sukh Garner Measurements Intervals [place] Rate: 54 P: 0 [place]: 0 QRS: 39 QRSD: 89 T: 0 QT: 462 QTc: 438 Interpretive Statements ATRIAL FIBRILLATION WITH SLOW VENTRICULAR RESPONSE WITH ABERRANT CONDUCTION OR VENTRICULAR PREMATURE COMPLEXES LOW QRS VOLTAGE IN EXTREMITY LEADS [QRS DEFLECTION < 0.5 mV IN LIMB LEADS] NONSPECIFIC ST/T WAVE ABNORMALITY RATE HAS MARKEDLY DECREASED SINCE PRIOR Electronically Signed On 06-24-2025 08:09:24 EDT by Sukh Garner Narrative Procedure Note Sukh Garner, DO - 06/24/[address] [facility] Test Date: 2025-06-24 Pat Name: [facility] Department: DEPID Room: [facility] Gender: Female Net Applications Developer: Reza : 1940 Requested By: DONNIE KINNEY Order Number: [id number] Reading MD: Sukh Garner Measurements Intervals [place] Rate: 54 P: 0 [place]: 0 QRS: 39 QRSD: 89 T: 0 [...] UA Color Yellow 06/23/2025 5:33 PM EDT [facility] UA Appear Clear Clear 06/23/2025 5:33 PM EDT [facility] UA Glucose Negative Negative mg/dL 06/23/2025 5:33 PM EDT [facility] UA Ketones Negative Negative mg/dL 06/23/2025 5:33 PM EDT [facility] UA Blood Negative Negative 06/23/2025 5:33 PM EDT [facility] UA pH 6.5 5.0 - 8.0 pH 06/23/2025 5:33 PM EDT [facility] UA Protein Negative Negative mg/dL 06/23/2025 5:33 PM EDT [facility] UA Urobilinogen Normal <=1 mg/dL 5:33 PM EDT [facility] UA Bili Negative Negative 06/23/2025 5:33 PM EDT [facility] UA Nitrite Negative Negative 06/23/2025 5:33 PM EDT [facility] UA Leuk Est Negative Negative 06/23/2025 5:33 PM EDT [facility] UA Spec Grav 1.011 1.001 - 1.035 no units 06/23/2025 5:33 PM EDT [facility] Comment:Reference range helga d for random specimens only. UA WBC 1 0 - 4 /HPF 06/23/2025 5:33 PM EDT [facility] UA RBC 1 0 - 3 /HPF 06/23/2025 5:33 PM EDT [facility] Urine STRUCTURE OF URINARY TRACT PROPER / Unknown 06/23/2025 5:11 PM EDT 06/23/2025 5:29 PM EDT Duong Vitale MD URINE ORDERABLES Final Result Performing Organization Address [facility] de Phone Number [facility] [address] [place] [address] * EXTRA HUITRON URINE CX (06/23/2025 5:11 PM EDT) Only the most recent of6 resultswithin the time period is included. Urine STRUCTURE OF URINARY TRACT PROPER / Unknown 06/23/2025 5:11 PM EDT 06/23/2025 5:29 PM EDT Duong Vitale MD MICROBIOLOGY - GENERAL ORDERA BLES Final Result Performing Organization Address [facility] de Phone Number [facility] [address] [place] [address] * (ABNORMAL) TROPONIN-T HIGH SENSITIVITY 2HR (06/23/2025 4:11 PM EDT) Only the most recent of3 resultswithin the time period is included. tt-pBegeudgd-R 2HR 83(H) <14 ng/L 06/23/2025 4:36 PM EDT [facility] hs-cTnT 2Hr Delta from Baseline -9 <4 ng/L 06/23/2025 4:36 PM EDT [facility] Blood VENOUS BLOOD / Unknown Venipuncture / Unknown 06/23/2025 4:11 PM EDT 06/23/2025 4:14 PM EDT Narrative [facility] - 06/23/2025 4:36 PM EDT Ingestion of angie doses of biotin (>5 mg/day) taken within 8 hours of drawing blood sample can interfere with this immunoassay test. us Stephan Rodriguez MD CHEMISTRY ORDERABLES Final R esult [facility] [address] [place] [address] * CT ANGIOGRAM PULMONARY W CONTRAST [...] Isovue 370 IV contrast as recorded in TxtFeedback. 2-D multiplanar reconstructions and 3-D MIP reconstructions reviewed. Dose 1 : CT DLP Total : 109.65 mGycm DLP Spiral Max : 96.21 mGycm Maximum CTDI Vol : 9.53 mGy FINDINGS: Adequate visualization of the pulmonary arteries to the segmental/subsegmental level. No acute pulmonary embolism. No aortic arch aneurysm. No pneumothorax. Small left and [id number] right pleural effusions. Emphysema. Opacities dependently in [...] using Isovue 370 IVcontrast as recorded in TxtFeedback. 2-D multiplanar reconstructions and 3-D MIP reconstructions reviewed. Dose 1 : CT DLP Total : 109.65 mGycm DLP Spiral Max : 96.21 mGycm Maximum CTDI Vol : 9.53 mGy FINDINGS: Adequate visualization of the pulmonary arteries to the segmental/subsegmental level. No acute pulmonary embolism. No aortic arch aneurysm. No pneumothorax. Small left and uhqsh-bx-zhbwtcnm right pleuraleffusions. Emphysema. Opacities dependently in the [...] time period is included. Pathologist [facility] mt-gYzrqjopw-T 92(H) <14 ng/L 06/23/2025 2:10 PM EDT [facility] Blood VENOUS BLOOD / Unknown Venipuncture / Unknown 06/23/2025 1:28 PM EDT 06/23/2025 1:35 PM EDT Narrative [facility] - 06/23/2025 2:10 PM EDT Ingestion of angie doses of biotin (>5 mg/day) taken within 8 hours of drawing blood sample can interfere with this immunoassay test. Stephan Rodriguez MD CHEMISTRY ORDERABLES Final R esult [facility] [address] [place] [address] * (ABNORMAL) PARTIAL THROMBOPLASTIN TIME (06/23/2025 1:28 PM EDT) Pathologist [facility] PTT 37.0(H) 25.7 - 36.8 second(s) 06/23/2025 1:48 PM EDT [facility] Comment: Therapeutic range for unfractionated heparin: [...] Final Result Performing Organization Address [facility] de Phone Number [facility] [address] [place] [address] * (ABNORMAL) PT / INR (06/23/2025 1:28 PM EDT) Only the most recent of3 resultswithin the time period is included. PT 15.3(H) 10.5 - 13.6 second(s) 06/23/2025 1:48 PM EDT [facility] INR 1.32(H) 0.91 - 1.18 (ratio) 06/23/2025 1:48 PM EDT [facility] Comment: Level of Therapy Indications Target INR Range Standard Dose Treatment and prophylaxis of venous 2.0 - 3.0 thrombosis, pulmonary embolism High Dose High risk patients with mechanical 2.5 - 3.5 heart valves Blood VENOUS BLOOD / Unknown Venipuncture / Unknown 06/23/2025 1:28 PM EDT 06/23/2025 1:35 PM EDT Stephan Rodriguez MD HEMATOLOGY ORDERABLES Final Result Performing Organization Address [facility] de Phone Number [facility] [address] [place] [address] * (ABNORMAL) D-DIMER (06/23/2025 1:28 PM EDT) D-Dimer 1,389(H) <=500 ng/mL FEU 06/23/2025 1:48 PM EDT [facility] Comment:This is an automated latex enhanced [...] HEMATOLOGY ORDERABLES Final Result Performing Organization Address City/State/[facility] Co de Phone Number [facility] [address] [place], [place] [id number] * CT CERVICAL SPINE WO CONTRAST (06/12/2025 [...] - 1.9 mmol/L 06/12/2025 9:50 PM EDT [facility] Blood VENOUS BLOOD / Unknown Venipuncture / Unknown 06/12/2025 9:22 PM EDT 06/12/2025 9:29 PM EDT Rhina Gooden DO CHEMISTRY ORDERABLES Final Res ult [facility] [address] [place] [id number] * AMMONIA LEVEL (06/12/2025 9:22 PM EDT) Pathologist [facility] Ammonia 15 11 - 51 mcmol/L 06/12/2025 9:50 PM EDT [facility] Blood VENOUS BLOOD / Unknown Venipuncture / Unknown 06/12/2025 9:22 PM EDT 06/12/2025 9:29 PM EDT us Rhina Gooden DO CHEMISTRY ORDERABLES Final Res ult [facility] [address] [place] [address] * (ABNORMAL) URINE CULTURE (NO STAIN) (06/12/2025 9:11 PM EDT) Only the most recent of4 resultswithin the time period is included. [facility] Culture Positive Growth(A) 06/15/2025 12:51 PM EDT [facility] Culture >100,000 CFU/mL Klebsiella pneumoniae SUSCEPTIB ILITY RESULT 06/15/2025 12:51 PM EDT [facility] Culture >100,000 CFU/mL Proteus mirabilis SUSCEPTIB ILITY RESULT 06/15/2025 12:51 PM EDT [facility] Comment: Confirmed positive for ESBL (extended spectrum [...] GENERAL ORDERAB LES Final Result [facility] [address] [facility] , [place] [address] * SCANNED RHYTHM STRIPS (06/11/2025 1:28 PM [...] - 1.30 mg/dL 06/04/2025 8:30 AM EDT [facility] Albumin 3.1(L) 3.2 - 4.6 gm/dL 06/04/2025 8:30 AM EDT [facility] Phosphorus 3.7 2.5 - 4.5 mg/dL 06/04/2025 8:30 AM EDT [facility] eGFR (CKD-EPIcr 2020) 61 >=60 mL/min/1.7 3 m2 06/04/2025 8:30 AM EDT [facility] Comment:Estimated GFR was ca lculated using the CKD-EPIcr (2020) equation refit without race. The equation is recommended by the National Kidney [employer] - [place] [employer] Nephrology Task Force. Blood VENOUS BLOOD / Unknown Venipuncture / Unknown 06/04/2025 7:52 AM EDT 06/04/2025 7:57 AM EDT us Stephen Pickard MD CHEMISTRY ORDERABLES Final R esult Performing Organization Address City/[facility]/ZIP Co de Phone Number [address] , [place] [address] * VANCOMYCIN LEVEL AUC1 (05/29/2025 5:55 AM EDT) [facility] Vancomycin AUC1 12.6 mcg/mL 6:54 AM EDT [facility] Blood VENOUS STRUCTURE / Unknown Line / Unknown 05/29/2025 5:55 AM EDT 05/29/2025 6:09 AM EDT us Stephen Pickard MD CHEMISTRY ORDERABLES Final [facility] Performing Organization Address City/[facility]/ZIP Co de Phone Number [facility] [address] [facility] , [place] [address] * (ABNORMAL) HEMOGLOBIN AND HEMATOCRIT (05/29/2025 12:48 AM EDT) Only the most recent of5 resultswithin the time period is included. Pathologist [facility] Hgb 8.2(L) 11.2 - 15.7 g/dL 05/29/2025 12:53 AM EDT [facility] [facility] Hct 25.5(L) 34.0 - 45.0 % 05/29/2025 12:53 AM EDT [facility] [employer] [facility] Blood VENOUS BLOOD / Unknown Venipuncture / Unknown 05/29/2025 12:48 AM EDT 05/29/2025 12:48 AM EDT Michael Beltre MD HEMATOLOGY ORDERABLES Fin al Result Performing Organization Address [facility] de Phone Number [facility] [employer] [facility] [address] [facility] , [address] [place] [id number] * (ABNORMAL) HEMOGLOBIN (05/28/2025 2:51 PM EDT) Only the most recent of3 resultswithin the time period is included. Hgb 7.5(L) 11.2 - 15.7 g/dL 05/28/2025 4:08 PM EDT [facility] [employer] [facility] Blood VENOUS BLOOD / Unknown Venipuncture / Unknown 05/28/2025 2:51 PM EDT 05/28/2025 4:00 PM EDT Stephen Pickard MD HEMATOLOGY ORDERABLES Final Result Performing Organization Address [facility] de Phone Number [facility] [employer] , [place] [address] * VANCOMYCIN LEVEL (05/27/2025 12:01 PM EDT) Vanco Random 8.4 mcg/mL 05/27/2025 12:24 PM EDT [facility] Blood VENOUS BLOOD / Unknown Venipuncture / Unknown 05/27/2025 12:01 PM EDT 05/27/2025 12:12 PM EDT Luis Manuel Mays MD CHEMISTRY ORDERABLES Final Re sult Performing Organization Address [facility]/ZIP Co de Phone Number [facility] [address] [place] [id number] * EC ECHOCARDIOGRAM COMPLETE W DOPPLER AND [...] 29.60 mcg/dL 8:26 PM EDT [facility] [employer] [facility] Blood VENOUS STRUCTURE / Unknown Venipuncture / Unknown 05/26/2025 7:36 PM EDT 05/26/2025 7:43 PM EDT Narrative [facility] [employer] [facility] - 05/26/2025 8:26 PM EDT Test performed using [employer] Elecsys Cortisol II assay. Stimulated cortisol reference value not established by this laboratory. us Stephen Pickard MD CHEMISTRY ORDERABLES Final R esult Performing Organization Address [facility] Co de Phone Number [facility] [employer] [address] , [place] [address] * CORTISOL 30 MINUTES (05/26/2025 7:05 PM EDT) Cortisol 30 Min 25.20 mcg/dL 8:03 PM EDT [facility] [employer] [facility] Blood VENOUS BLOOD / Unknown Venipuncture / Unknown 05/26/2025 7:05 PM EDT 05/26/2025 7:19 PM EDT Narrative [facility] [employer] [facility] - 05/26/2025 8:03 PM EDT Test performed using [employer] Cortisol II assay. Stimulated cortisol reference value not established by this laboratory. us Stephen Pickard MD CHEMISTRY ORDERABLES Final R esult Performing Organization Address [facility] Co de Phone Number [facility] [facility] [employer] [address] , [place] [address] * CORTISOL BASELINE (05/26/2025 6:49 PM EDT) Cortisol Baseline 11.20 mcg/dL 05/26/2025 7:39 PM EDT [facility] [employer] [facility] Blood VENOUS BLOOD / Unknown Venipuncture / Unknown 05/26/2025 6:49 PM EDT 05/26/2025 6:49 PM EDT Narrative [employer] [facility] - 05/26/2025 7:39 PM EDT AM: [...] Stephen Pickard MD CHEMISTRY ORDERABLES Final R [employer] Performing Organization Address [facility] Co de Phone Number [facility] [employer] [address], [place] [address] * (ABNORMAL) TROPONIN-T HIGH SENSITIVITY 6 HR (05/26/2025 6:26 PM EDT) [facility] sx-wGlgnecey-E 6HR 59(H) <14 ng/L 05/26/2025 6:55 PM EDT [facility] hs-cTnT 6Hr Delta from Baseline -3 <12 ng/L 05/26/2025 6:55 PM EDT [facility] Blood VENOUS STRUCTURE / Unknown Venipuncture / Unknown 05/26/2025 6:26 PM EDT 05/26/2025 6:39 PM EDT Narrative [facility] - 05/26/2025 6:55 PM EDT Ingestion of angie doses of biotin (>5 mg/day) taken within 8 hours of drawing blood sample can interfere with this immunoassay test. Stephen Pickard MD CHEMISTRY ORDERABLES Final [facility] Performing Organization Address [facility] Co de Phone Number [address] [address] * STAPHYLOCOCCUS AUREUS SCREEN (05/26/2025 4:24 PM EDT) Pathologist [facility] Staph aureus PCR Not Detected Not Detected 05/26/2025 6:20 PM EDT [facility] [employer], [facility] MRSA PCR Not Detected Not Detected 05/26/2025 6:20 PM EDT [facility] Swab BOTH ANTERIOR NARES / Unknown 05/26/2025 4:24 PM EDT 05/26/2025 4:40 PM EDT Narrative [facility] - 05/26/2025 6:20 PM [...] assay utilizes real time PCR on the [employer] GeneXpert Infinity, and its performance has been [...] has been developed and validated by the [facility] laboratory. Detailed methodology is available upon request. Luis Manuel Mays MD MICROBIOLOGY - GENERAL ORDERA BLES Final Result Performing Organization Address City/[facility]/ZIP Co de Phone Number [facility] [employer] , [place] [address] * IONIZED CALCIUM - INPATIENT (05/26/2025 4:17 PM EDT) Calcium Ionized 1.13 1.12 - 1.32 mmol/L 05/26/2025 4:29 PM EDT [facility] [employer], [facility] Blood VENOUS BLOOD / Unknown Venipuncture / Unknown 05/26/2025 4:17 PM EDT 05/26/2025 4:25 PM EDT Luis Manuel Mays MD CHEMISTRY ORDERABLES Final Re sult Performing Organization Address City/[facility]/ZIP Co de Phone Number [facility] [address] [place] [address] , [place] [address] * BB HISTORY CHECK (05/26/2025 4:17 PM EDT) Only the most recent of2 resultswithin the time period is included. [facility] BB HISTORY CHECK (1) Previous History OK 05/26/2025 11:40 PM EDT [facility] Blood VENOUS BLOOD / Unknown Venipuncture / Unknown 05/26/2025 4:17 PM EDT 05/26/2025 4:21 PM EDT us Luis Manuel Mays MD BLOOD BANK ORDERABLES Final R esult [facility] [address] [place] [address] * POTASSIUM WHOLE BLOOD (05/26/2025 4:17 PM EDT) [facility] K-WB 4.6 3.5 - 5.0 mEq/L 05/26/2025 4:29 PM EDT [facility] Blood VENOUS BLOOD / Unknown Venipuncture / Unknown 05/26/2025 4:17 PM EDT 05/26/2025 4:25 PM EDT us Luis Manuel Mays MD CHEMISTRY ORDERABLES Final Re sult [facility] [address] [place] [address] , [place] [address] * ABORH (05/26/2025 4:17 PM EDT) Only the most recent of2 resultswithin the time period is included. [facility] ABORH Int A POS 05/26/2025 11:40 PM EDT [facility] Blood VENOUS BLOOD / Unknown Venipuncture / Unknown 05/26/2025 4:17 PM EDT 05/26/2025 4:21 PM EDT us Luis Manuel Mays MD BLOOD BANK ORDERABLES Final R esult Performing Organization Address [facility] Co de Phone Number [facility] [address] [place] [address] * FIBRINOGEN (05/26/2025 4:17 PM EDT) Only the most recent of2 resultswithin the time period is included. Fibrinogen 312 196 - 444 mg/dL 05/26/2025 4:38 PM EDT [facility] [employer] [facility] Blood VENOUS BLOOD / Unknown Venipuncture / Unknown 05/26/2025 4:17 PM EDT 05/26/2025 4:21 PM EDT Stephen Pickard MD HEMATOLOGY ORDERABLES Final Result Performing Organization Address [facility] Co de Phone Number [facility] [employer] [address], [place] [address] * RED BLOOD CELLS REQUEST (05/26/2025 4:17 PM EDT) Only the most recent of4 resultswithin the time period is included. Product Code [id number] [facility] BLOOD BANK Unit Number [id number] [facility] Crossmatch Interp Compatible [facility] Dispense Status RETURNED [facility] Blood Expiration Date [id number] [facility] ISBT 128 [address] 6200 [facility] BLOOD [facility] Blood Unit Volume 300 ml [facility] BA CODING SYSTEM [id number] [facility] Blood Type (Unit) A POS [facility] 05/26/2025 4:17 PM EDT 05/26/2025 4:21 PM EDT Luis Manuel Mays MD BLOOD PRODUCT ORDERS Final Re sult Performing Organization Address [facility] Co de Phone Number [facility] B[facility]OD [place] [phone] * ANTIBODY SCREEN IGG (05/26/2025 4:17 PM EDT) Only the most recent of2 resultswithin the time period is included. ABSC IgG Int Negative 05/26/2025 11:40 PM EDT [facility] Blood VENOUS BLOOD / Unknown Venipuncture / Unknown 05/26/2025 4:17 PM EDT 05/26/2025 4:21 PM EDT us Luis Manuel Mays MD BLOOD BANK ORDERABLES Final R esult Performing Organization Address City/[facility]/ZIP Co de Phone Number [facility] [address] [place] [address] * (ABNORMAL) ADRENOCORTICOTROPIC HORMONE -REF LAB (05/26/2025 3:20 PM EDT) Pathologist [facility] ACTH 3.3(L) 7.2 - 63.3 pg/mL 05/28/2025 7:58 PM EDT [employer] , [employer] Comment: INTERPRETIVE INFORMATION: Adrenocorticotropic Hormone Reference interval based on samples collected between 7 a.m. and 10 a.m. No reference intervals established for p.m. collections. Pediatric reference values are the same as adults (Acta Paediatr Scand 1981;70:341-345). This assay measures intact ACTH 1-39; some types of synthetic ACTH and ACTH fragments are not detected by this assay. Performed By: [facility] [address] [place] [address] Aircraft Tool Maker: Gigi Cheney MD, PhD CLIA Number: [id number] Blood VENOUS BLOOD / Unknown Venipuncture / Unknown 05/26/2025 3:20 PM EDT 05/26/2025 3:23 PM EDT us Stephen Pickard MD CHEMISTRY ORDERABLES Final R esult Performing Organization Address City/[facility]/ZIP Co de Phone Number [facility] [address] [place], [place] [id number] * CORTISOL (05/26/2025 2:11 PM EDT) Cortisol 7.55 mcg/dL 05/26/2025 2:5 1 PM EDT [facility] [employer] [facility] Blood VENOUS BLOOD / Unknown Venipuncture / Unknown 05/26/2025 2:11 PM EDT 05/26/2025 2:15 PM EDT Narrative [facility] - 05/26/2025 2:51 PM [...] CHEMISTRY ORDERABLES Final R esult [facility] [address] [facility] , [place] [address] * (ABNORMAL) HEPATIC FUNCTION PANEL (05/26/2025 2:11 PM EDT) Total Protein 4.9(L) 6.4 - 8.3 gm/dL 05/26/2025 6:41 PM EDT [facility] [employer], [facility] Albumin 2.9(L) 3.2 - 4.6 gm/dL 05/26/2025 6:41 PM EDT [facility] [employer], [facility] Bili Direct 0.4(H) 0.0 - 0.3 mg/dL 05/26/2025 6:41 PM EDT [facility] [employer], [facility] Bili Total 0.8 0.2 - 1.3 mg/dL 05/26/2025 6:41 PM EDT [facility], [facility] AST 16 <=40 U/L 05/26/2025 6:41 PM EDT [facility] [employer], [facility] ALT 9 <=41 U/L 05/26/2025 6:41 PM EDT [facility] [employer], [facility] Alk Phos 103 36 - 123 U/L 05/26/2025 6:41 PM EDT [facility] Blood VENOUS BLOOD / Unknown Venipuncture / Unknown 05/26/2025 2:11 PM EDT 05/26/2025 2:15 PM EDT us Luis Manuel Mays MD CHEMISTRY ORDERABLES Final Re sult Performing Organization Address [facility] Co de Phone Number [facility] [address] [place] [address] , [place] [address] * PROCALCITONIN (05/26/2025 1:00 PM EDT) Procalcitonin 0.08 <=0.49 ng/mL 05/26/2025 1:55 PM EDT [facility] Blood VENOUS BLOOD / Unknown Venipuncture / Unknown 05/26/2025 1:00 PM EDT 05/26/2025 1:18 PM EDT Narrative [facility] - 05/26/2025 1:55 PM EDT Procalcitonin <0.50 [...] ORDERABLES Final R esult Performing Organization Address [facility] Co de Phone Number [facility] [address] [place] [address] , [place] [address] * BLOOD CULTURE (NO STAIN) (05/26/2025 11:58 AM EDT) Only the most recent of2 resultswithin the time period is included. Culture Result No Growth at 120 hours. BLOOD CULTURE (NO STAIN) 05/31/2025 1:00 PM EDT [employer] [employer] [facility] Blood VENOUS BLOOD / Unknown Venipuncture / Unknown 05/26/2025 11:58 AM EDT 05/26/2025 12:03 PM EDT us Stephen Pickard MD MICROBIOLOGY - GENERAL ORDER CELESTE Final Result [facility] [employer] [address] , [place] [address] * TRANSFUSE RED BLOOD CELLS (05/24/2025 10:43 AM EDT) Only the most recent of2 resultswithin the time period is included. us Vargas Wolf MD NURSING TREATMENT ORDERABLE S - BLOOD ADMIN Edited Result - Final * PATHOLOGY TISSUE REQUEST (05/24/2025 8:41 AM EDT) CASE REPORT Surgical Pathology Case: [id number] Authorizing Provider: Vargas Wolf MD Collected: 05/24/2025 0841 Ordering Location: [facility] Received: 05/24/2025 1101 Pathologist: Addie Barakat MD Specimen: Leg, Left, Left Leg and knee 05/29/2025 3:42 PM EDT [facility] FINAL DIAGNOSIS Left leg and knee, [id number] amputation: - Ulcer and soft tissue necrosis at previous amputation site. - Atherosclerosis. - Focal areas of necrosis and acute inflammation consistent with acute osteomyelitis. - Skin and soft tissue margins are viable. - Bone margin is negative for acute osteomyelitis. 05/29/2025 3:42 PM EDT [facility] at 1542 EDT GROSS DESCRIPTION A. [...] soft tissue margins; Green - femoral vessels; Saunders - anterior tibial vessels; Black - posterior [...] diffusely calcified and up to 95% stenotic. Truck Driver Rubbish Collector sections are submitted as follows: A1: Bone marrow from margin, in a biopsy bag and following Decal Stat A2: Skin and soft tissue margin, perpendicularly sectioned A3: Lesion to underlying bone, following Decal Stat A4: Mid cross sections of vessels with stenotic and calcified areas, following Decal Stat Kesha Cerda MS, ABIGAIL (ASC) 05/27/2025 05/29/2025 3:42 PM EDT [facility] MICROSCOPIC DESCRIPTION The microscopic examination may have been rendered in whole, or in part, by analyzing high-resolution digital images (whole slide images) on the [employer] Digital Pathology platform validated at [facility]. 05/29/2025 3:42 PM EDT [facility] EMBEDDED IMAGES 05/29/2025 3:42 PM EDT [facility] Tissue STRUCTURE OF LEFT LOWER LEG / Unknown 05/24/2025 8:41 AM EDT 05/24/2025 11:01 AM EDT us Vargas Wolf MD PATHOLOGY ORDERABLES Final Result Performing Organization Address City/State/[facility] de Phone Number [facility] [address] [place] [address] [address] * INTRAOP AIRWAY PLACEMENT (05/24/2025 8:13 AM EDT) Narrative [facility] - 05/24/2025 8:13 AM EDT Maite Luna CRNA 05/24/2025 8:18 AM Intraop Airway Placement: Date/Time: 05/24/2025 8:13 AM Induction type: IV Pre-Oxygenation: Reverse trendelenberg Mask ventilation: Easy mask ventilation Airway type: LMA Topical Anesthetic/Lubricant: Lubricant jelly Airway location: Oral Device size: 3 Placement verified: Auscultation, End tidal CO2 and Symmetric chest wall motion Condition: Atraumatic and Unchanged Insertion attempts: 1 Title: ARBORIST REPRESENTATIVE Tano Justice DO [place] ANESTHESIA Final Result Performing Organization Address [facility] de Phone Number [facility] [address] [place] [phone] * Peripheral Block by Anesthesia (05/24/2025 7:53 AM EDT) Narrative [facility] - 05/24/2025 7:53 AM EDT [...] Justice DO ANESTHESIA ORDERABLES Final R esult [facility] [address] [place] [address] * US ANES GUIDANCE FOR [...] 05/21/2025 7:57 AM EDT [facility] Transferrin Saturation 16(L) 20 - 50 % 05/21/2025 7:57 AM EDT [facility] TIBC 255 250 - 400 mcg/dL 05/21/2025 7:57 AM EDT [facility] Blood VENOUS BLOOD / Unknown Venipuncture / Unknown 05/21/2025 7:18 AM EDT 05/21/2025 7:22 AM EDT Carlos Manuel Landaverde II, MD CHEMISTRY ORDERABLES Mita l Result [facility] [address] [facility], [place] [address] * VITAMIN B12/ FOLIC ACID (05/21/2025 7:18 AM EDT) Vitamin B12 806 232 - 1,245 pg/mL 05/21/2025 8:20 AM EDT [facility] [facility] Folate >16.00 >=4.80 ng/mL 05/21/2025 8:20 AM EDT [facility] [facility] Blood VENOUS BLOOD / Unknown Venipuncture / Unknown 05/21/2025 7:18 AM EDT 05/21/2025 7:22 AM EDT Narrative [facility] [employer] [facility] - 05/21/2025 8:20 AM EDT Ingestion of angie doses of biotin (>5 mg/day) taken within 8 hours of drawing blood sample can interfere with this immunoassay test. us Carlos Manuel Landaverde II, MD CHEMISTRY ORDERABLES Mita l Result [facility] [facility] [address] [facility], [place] [address] * PERIPHERAL SMEAR/PATH REVIEW (05/21/2025 7:18 AM [...] Sujata Benitez MD 05/22/2025 5:33 PM EDT [facility] Blood VENOUS BLOOD / Unknown Venipuncture / Unknown 05/21/2025 7:18 AM EDT 05/21/2025 7:22 AM EDT Stephen Pickard MD HEMATOLOGY ORDERABLES Final Result [place] [address] * XR ABDOMEN AP (05/19/2025 8:00 AM [...] DIAGNOSTIC IMAGING OR DERABLES Final Result * HEMOGLOBIN A1C (05/03/2025 6:37 AM EDT) Hgb A1C 5.3 4.2 - 5.6 % 05/05/2025 3:53 PM EDT [facility] Est. Avg Glucose 105 mg/dL 05/05/2025 3:53 PM EDT [facility] Blood VENOUS BLOOD / Unknown Venipuncture / Unknown 05/03/2025 6:37 AM EDT 05/03/2025 7:14 AM EDT Narrative [facility] - 05/05/2025 3:53 PM EDT REFERENCE RANGE: Normal: 4.0-5.6% Pre-diabetes: 5.7-6.4% Provisional diagnosis of diabetes: >6.4% Hgb F>10% and anything which shortens red cell survival, such as hemolytic anemia, or unstable hemoglobin variants such as HbSS, HbSC, or HbCC, will lower the HbA1c value associated with a given level of glycemic control. us Geo Guallpa MD CHEMISTRY ORDERABLES Final Resul t [facility] [address] [facility], [place] [address] from Last 3 Months or Most Recently Relevant to Health Maintenance Additional Health Concerns Infection Onset Date Last Indicated ESBL organism Comment:ESBL urine: 05/23, 06/1205/23/2025 06/12/2025 Insurance MEDICARE [place] PART A AND B [facility] [place] PART A AND B [employer] [place] [employer] MEDICARE [place] PART A AND B Advance Directives For more information, please contact: [phone] * DNR (Latest Code Status on File) [...] 3:51 PM 05/27/2025 3:19 PM Care Teams Division Officer Weapons Department Relationship Specialty Start Date End Date No Pcp, Per Patient PCP - General 06/04/24
--- OUTSIDE RECORDS SUMMARY | 2025-08-16 09:14 | XMS_ITS | Encounter Summary ---
Author Organization [employer] ([place], [place], [place], [place]) Address [address] [place] [address] Care Team Providers Care Engine Maintenance Mechanic Name Role Phone Jay Howell MD Primary Care Provider [phone] Encounter Details Date Type Department Care Team (Late st Contact Info) Description 08/22/2020 Transcribed Document [facility] Family Medicine [address] [place] [address] ProviderJessie MD [address] [place] [address] Social History Tobacco Use Types Packs/Day Years Used Date Smoking Tobacco: Never Assessed Comments Unknown Sex and Gender Information Value Date Recorded Sex Assigned at Not on file Legal Sex Female 7:30 PM CDT Gender Identity Not on file Sexual Orientation Not on file documented as of this encounter Miscellaneous Notes * [employer]ner Conversion Note - Historical ProviderMD - 08/22/2020 8:49 PM MANAGER IT SECURITY [place] Suicide Severity Rating Scale (C-SSRS) Entered On: 08/22/2020 23:10 EST Performed On: 08/22/2020 23:10 EST by Noy Miguel Paramedic [place] Suicide Severity Rating Scale (C-SSRS) CSSRS Past Month Wish to be : No CSSRS Past Month Suicidal Thoughts : No CSSRS Lifetime Suicide Behavior : No Suicide Severity Rating Score : 0 Suicide Severity Rating : No Additional Care Required at this time Thoughts of Harming/Killing Others : No Noy Miguel Paramedic - 08/22/2020 23:10 EST Electronically signed by Sivan, [facility] Conversion Inventory Auditor Cerner at 02/04/2023 2:06 PM CDT documented in this encounter Plan of Treatment Not on file documented as of this encounter Visit Diagnoses Not on filedocumented in this encounter Care Teams Engine Maintenance Mechanic Relationship Specialty Start Date End Date Jay Howell MD [address] [place] [phone] PCP - General Emergency Medicine 11/12/23 documented as of this encounter
--- OUTSIDE RECORDS SUMMARY | 2025-08-16 09:14 | XMS_ITS | Encounter Summary ---
Author Organization [employer] ([place], [place], [place], [place]) Address [address] [place] [address] Care Team Providers Care Craniologist Name Role Phone Jay Howell MD Primary Care Provider [phone] Encounter Details Date Type Department Care Team (Late st Contact Info) Description 06/13/2020 Transcribed Document [facility] [place] [address] [place] [address] ProviderJessie MD [address] [place] [address] Social History Tobacco Use Types Packs/Day Years [...] Legal Guardian : Responsible adult Support Person/Patient Milling Planer Operator : Yes Support Person/Pt Rep Name : Willard Contact Password : Marvin Support Person/Pt Rep Contact Information : [phone] Want Family/Rep/Phys Notified of Admit : No [...] Obtained From : Patient Primary Language : Mohawk Preferred Communication Mode : Verbal Communication Barrier : None Gravel Wheeler Needed : No PAUL GERBER RN - [...] Scale Risk Level : 25-45 Medium Risk [place] Fall Interventions : Adequate lighting, Bed in [...] Source : Stated Height Entry Format : Ford Height, Feet : 5 ft(Converted to: 152 cm, 60 Inch) Height, Inches : 3 Inch(Converted to: 0 ft 3 Inch, 7.62 cm) Clinical Height : 160.02 cm Weight Source : Bed scale Weight Entry Format : Ford Clinical Dosing Weight : 75.32 kg Weight, Pounds : 165.7 lb Body Surface Area (BSA) : 1.79 m2 Body Mass Index : 29.4 kg/m2 (HI) Pimento Body Weight : 52 kg PAUL GERBER [...] PAUL GERBER RN - 06/13/2020 3:09 EDT [place] Suicide Severity Rating Scale (C-SSRS) CSSRS Past [...] Any Spiritual/Cultural Needs or Requests : Yes Moravian Preference : Mandaeism Spiritual/Cult Concerns/Desires/Needs : Prayer Spiritual/Cultural Needs Comment [...] on filedocumented in this encounter Care Teams Craniologist Relationship Specialty Start Date End Date Jay Howell MD [address] [place] [phone] PCP - General Emergency Medicine 11/12/23 documented as of this encounter
--- OUTSIDE RECORDS SUMMARY | 2025-08-16 09:14 | XMS_ITS | Encounter Summary ---
Author Organization [employer] ([place], [place], [place], [place]) Address [address] [place] [address] Care Team Providers Care Efficiency Expert Name Role Phone Jay Howell MD Primary Care Provider [phone] Encounter Details Date Type Department Care Team (Late st Contact Info) Description 06/14/2020 Transcribed Document [facility] [address] [place] [address] ProviderJessie MD [address] [place] [address] Social History Tobacco Use Types [...] Yuen MD - 06/14/2020 2:41 PM CDT [facility] [place] [address] SKYLER MONTOYA :1940 Visit Time:06/13/2020 Your Visit Summary Your Care Team Admitting Physician - MARIA ELENA DAVALOS MD-[facility] Attending Physician - MARIA ELENA DAVALOS MD-[facility] Primary Care Physician - TARA CHEN [...] provider. This is important. Medicines ??? Take ugud-laz-ehzshqy and prescription medicines only as told by [...] 10/03/2006 Document Revised: 06/13/2019 Document Reviewed: 06/13/2019 [employer] Patient Education ?? 2020 [employer] Emergency Awareness and Preventative Care STROKE [...] Assistance with quitting is available by contacting [phone]. This is a free resource providing counseling, [...] range between ( 0.0 and 7.0 ) Arroyo #: 0.61 K/uL -- Normal range between ( 0.16 and 1.00 ) Eos #: 0.12 x10(3)/uL -- Normal range between ( 0.00 and 0.80 ) Arroyo %: 10.6 % -- Normal range between [...] was given the opportunity to ask questions. Patient/Fleet Dispatch Manager Name: Patient/Fleet Dispatch Manager Signature: Relationship to Patient: Clinician/Hospital Fleet Dispatch Manager Signature: Date: documented in this encounter Plan of Treatment Not on file documented as of this encounter Visit Diagnoses Not on filedocumented in this encounter Care Teams Efficiency Expert Relationship Specialty Start Date End Date Jay Howell MD [address] [place] [phone] PCP - General Emergency Medicine 11/12/23 documented as of this encounter
--- OUTSIDE RECORDS SUMMARY | 2025-08-16 09:14 | XMS_ITS | Encounter Summary ---
Author Organization [employer] ([place], [place], [place], [place]) Address [address] [place] [address] Care Team Providers Care Orthotic/Prosthetic Clinician Name Role Phone Jay Howell MD Primary Care Provider [phone] Encounter Details Date Type Department Care Team (Late st Contact Info) Description 03/04/2021 Transcribed Document [facility] [place] [address] [place] [address] ProviderJessie MD [address] [place] [id number] Social History Tobacco Use Types Packs/Day Years [...] 03/04/2021 09:37 (ROBBY SANTAMARIA) Provider Review Required Electronically signed by Abel Finnegan Conversion Printed Circuit Board Pcb Designer Cerner at 02/04/2023 2:13 PM CDT documented in this encounter Plan of Treatment Not on file documented as of this encounter Visit Diagnoses Not on filedocumented in this encounter Care Teams Orthotic/Prosthetic Clinician Relationship Specialty Start Date End Date Jay Howell MD [address] [place] [phone] PCP - General Emergency Medicine 11/12/23 documented as of this encounter
--- OUTSIDE RECORDS SUMMARY | 2025-08-16 09:14 | XMS_ITS | Encounter Summary ---
Author Organization [employer] ([place], [place], [place], [place]) Address [address] [place] [address] Care Team Providers Care Blocking Machine Operator Second Name Role Phone Jay Howell MD Primary Care Provider [phone] Encounter Details Date Type Department Care Team (Late st Contact Info) Description 06/14/2020 Transcribed Document [facility] [place] [address] [place] [address] ProviderJessie MD [address] [place] [address] Social History Tobacco Use Types Packs/Day Years [...] EDT Number of Prescriptions Given : 3 JAOO NASSAR RN - 06/14/2020 14:57 EDT Teaching Method : Explanation, Printed materials Teaching Evaluation : Verbalizes understanding JOAO NASSAR RN - 06/14/2020 14:23 EDT Electronically signed by Sivan [facility] Conversion Trains Service Conductor Cerner at 02/04/2023 2:18 PM CDT documented in this encounter Plan of Treatment Not on file documented as of this encounter Visit Diagnoses Not on filedocumented in this encounter Care Teams Blocking Machine Operator Second Relationship Specialty Start Date End Date Jay Howell MD [address] [place] [phone] PCP - General Emergency Medicine 11/12/23 documented as of this encounter
--- OUTSIDE RECORDS SUMMARY | 2025-08-16 09:15 | XMS_ITS | Encounter Summary ---
Author Organization [employer] ([place], [place], [place], [place]) Address [address] [place] [address] Care Team Providers Care Motorboat Operator Name Role Phone Jay Howell MD Primary Care Provider [phone] Encounter Details Date Type Department Care Team (Late st Contact Info) Description 12/20/2018 Transcribed Document [facility] [place] [address] [place] [address] ProviderJessie MD [address] [place] [address] Social History Tobacco Use Types Packs/Day Years Used Date Smoking Tobacco: Never Assessed Comments Unknown Sex and Gender Information Value Date Recorded Sex Assigned at Not on file Legal Sex Female 7:30 PM CDT Gender Identity Not on file Sexual Orientation Not on file documented as of this encounter Miscellaneous Notes * Cerner Conversion Note - Jessie ProviderMD - 12/20/2018 9:47 PM GRAIN SAMPLER Rapid Response Team Documentation Entered On: 12/20/2018 [...] Admission Diagnosis : 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 EKG shows no ST elevation. Cardiac COKE STILL CLEANER notified. elevated blood pressure as well. nitro ordered and given. chest pain subsided. Patient Condition at End of Event : No S/S of Acute Distress Patient Disposition Post Event : No change in location/level of care Rapid Response Motorboat Operator #1 : LO THEODORE RN BENGE, MELISSA V, RN - 12/20/2018 22:51 EST Rapid Response Systems Assessment Oxygen Therapy Mode : Nasal cannula Oxygen Flow Rate : 2 Liter/Min Cardiovascular Symptoms : Chest discomfort at rest Heart Rhythm : Regular Cardiac Rhythm : Normal sinus rhythm LO THEODORE RN - 12/20/2018 22:51 EST Electronically signed by [facility] Conversion Crop Duster Helper Cerner at 02/04/2023 2:10 PM CDT documented in this encounter Plan of Treatment Not on file documented as of this encounter Visit Diagnoses Not on filedocumented in this encounter Care Teams Motorboat Operator Relationship Specialty Start Date End Date Jay Howell MD [address] [place] [phone] PCP - General Emergency Medicine 11/12/23 documented as of this encounter
--- OUTSIDE RECORDS SUMMARY | 2025-08-16 09:15 | XMS_ITS | Encounter Summary ---
Author Organization [employer] ([place], [place], [place], [place]) Address [address] [place] [address] Care Team Providers Care Shrub Planter Name Role Phone Jay Howell MD Primary Care Provider [phone] Encounter Details Date Type Department Care Team (Late st Contact Info) Description 03/03/2021 Transcribed Document [facility] [place] [facility] [address] ProviderJessie MD [address] [place] [address] Social History Tobacco Use Types [...] Jessie ProviderMD - 03/03/2021 5:09 PM CDT [facility] [place] [address] SKYLER MONTOYA :1940 Visit Time:03/03/2021 Your Visit [...] call you with a follow-up appointment Where: [address] [place] [address] [facility] (1) Allergies Macrodantin morphine (rash, rash) Immunizations This Visit No Immunizations Found Medications What How Much When Instructions Next Dose acetaminophen-hydrocodone (Phil Campbell 7.5 mg-325 mg oral tablet) 1 Tablet(s) Oral Every 6 Hours as needed for for pain Pickup at [place] [address] lidocaine topical (Lidoderm 5% topical film) 1 Patch(es) TransDermal Every Day Pickup at [place] [address] ALPRAZolam (Xanax 0.5 mg oral tablet) 1 [...] Information MART[facility]N MONGE 712: [address] [place] [id number] [phone] The home medications listed are only as [...] that cause pain. General instructions ??? Take [id number] and prescription medicines only as told by [...] provider. Document Revised: 02/18/2020 Document Reviewed: 02/18/2020 [employer] Patient Education ?? 2020 [employer]. Emergency Awareness and Preventative Care STROKE [...] Assistance with quitting is available by contacting 4-990-CGKT-NOW. This is a free resource providing counseling, [...] was given the opportunity to ask questions. Patient/Hatchery Supervisor Name: Patient/Hatchery Supervisor Signature: Relationship to Patient: Clinician/Hospital Hatchery Supervisor Signature: Please Provide a Telephone Number Where You Can Be Reached: Is it Permissible To Leave a Message? Date: Electronically signed by Sivan [facility] Conversion Vba Developer Cerner at 02/04/2023 1:58 PM CDT documented in this encounter Plan of Treatment Not on file documented as of this encounter Visit Diagnoses Not on filedocumented in this encounter Care Teams Shrub Planter Relationship Specialty Start Date End Date Jay Howell MD [address] [place] [phone] PCP - General Emergency Medicine 11/12/23 documented as of this encounter
--- OUTSIDE RECORDS SUMMARY | 2025-08-16 09:15 | XMS_ITS | Encounter Summary ---
Author Organization [employer] ([place], [place], [place], [place]) Address [address] [place] [address] Care Team Providers Care Print Room Worker Name Role Phone Jay Howell MD Primary Care Provider [phone] Encounter Details Date Type Department Care Team (Late st Contact Info) Description 03/03/2021 Transcribed Document [facility] [place] [address] [place] [address] ProviderJessie MD [address] [place] [address] Social History Tobacco Use Types Packs/Day Years [...] CHARLEE - EVA WESLEY RN PCI w/ [place] stent to D1 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 femur repair. Appendectomy ([id number]). uterine suspension. Hysterectomy ([id number]). back surgury. Cholecystectomy ([id number]). Hip replacement ([id number]). cataract surgury.. Family history: Cardiomyopathy Child Stroke [...] EDT Height Source Stated Height Entry Format [place] Height/Length, IRAQI (ft) 5 ft Height/Length IRAQI 3 Inch CLINICALHEIGHT 160.02 cm [place] Body Weight 52.02 kg Weight Source, ED Critical estimated dosing weight Weight Entry Format [place] Weight Danish lb 154 lb CLINICALWEIGHT 70 kg Body [...] Radiology results: Radiology Results (Last 48 hours) [id number] -- 03/03/2021 15:59 CR Hip Uni Comp [...] 17:04 EDT, Discharge to: Home. Prescriptions: Prescription Steelscope Operator Pharmacy: [facility] 7.5 mg-325 mg oral tablet (Prescribe): 1 [...] Date End Date Jay Howell MD [address] [place] [phone] PCP - General Emergency Medicine 11/12/23 documented as of this encounter
--- OUTSIDE RECORDS SUMMARY | 2025-08-16 09:15 | XMS_ITS | Encounter Summary ---
Author Organization [employer] ([place], [place], [place], [place]) Address [address] [place] [address] Care Team Providers Care Conciliation Court Judge Name Role Phone Jay Howell MD Primary Care Provider [phone] Encounter Details Date Type Department Care Team (Late st Contact Info) Description 02/13/2021 Transcribed Document [facility] [place] [facility] [place] [address] ProviderJessie MD [address] [place], [place] [phone] Social History Tobacco Use Types Packs/Day Years [...] 11:50:00 (02/13/21 12:00:33) Electronically signed by Sivan [facility] Conversion Supervisor Char House Cerner at 02/04/2023 2:14 PM CDT documented in this encounter Plan of Treatment Not on file documented as of this encounter Visit Diagnoses Not on filedocumented in this encounter Care Teams Conciliation Court Judge Relationship Specialty Start Date End Date Jay Howell MD [address] [place] [phone] PCP - General Emergency Medicine 11/12/23 documented as of this encounter
--- OUTSIDE RECORDS SUMMARY | 2025-08-16 09:15 | XMS_ITS | Encounter Summary ---
Author Organization [employer] ([place], [place], [place], [place]) Address [address] [place] [address] Care Team Providers Care Shoe Stitcher Odd Name Role Phone Jay Howell MD Primary Care Provider [phone] Encounter Details Date Type Department Care Team (Late st Contact Info) Description 03/03/2021 Transcribed Document [facility] [place] [address] [place] [address] ProviderJessie MD [address] [place] [phone] Social History Tobacco Use Types Packs/Day Years [...] Assessment, ED Genitourinary Assessment WDL : Marek eMderos Rn - 03/03/2021 16:24 EDT Musculoskeletal Musculoskeletal [...] - 03/03/2021 16:24 EDT Electronically signed by [facility] Conversion Resident Services Coordinator Cerner at 02/04/2023 2:00 PM CDT documented in this encounter Plan of Treatment Not on file documented as of this encounter Visit Diagnoses Not on filedocumented in this encounter Care Teams Shoe Stitcher Odd Relationship Specialty Start Date End Date Jay Howell MD [address] [place] [phone] PCP - General Emergency Medicine 11/12/23 documented as of this encounter
--- OUTSIDE RECORDS SUMMARY | 2025-08-16 09:15 | XMS_ITS | Encounter Summary ---
Author Organization [facility] ([place], [place], [place], [place]) Address [address] [place] [address] Care Team Providers Care Bridge Construction Inspector Name Role Phone Jay Howell MD Primary Care Provider [phone] Encounter Details Date Type Department Care Team (Late st Contact Info) Description 12/21/2018 Transcribed Document [facility] Family Medicine [facility] [place] [address] ProviderJessie MD [address] [place] [phone] Social History Tobacco Use Types Packs/Day Years Used Date Smoking Tobacco: Never Assessed Comments Unknown Sex and Gender Information Value Date Recorded Sex Assigned at Not on file Legal Sex Female 7:30 PM CDT Gender Identity Not on file Sexual Orientation Not on file documented as of this encounter Miscellaneous Notes * Cerner Conversion Note - Jessie Yuen MD - 12/21/2018 11:50 AM CARTRIDGE BELT PUNCHER [address] , [place], [place] [id number] Patient Copy Patient Information: Name: SKYLER MONTOYA Current Date: 12/21/2018 11:50:40 : 1940 Patient Address: [address] [place] [id number] Patient Attending Physician: FREDY YAÑEZ MD-CAR Primary Care Provider: TARA CHEN (REF), -MED Primary Care Provider Discharge Diagnosis: CAD (coronary artery disease); DM (diabetes mellitus); Exertional angina; HLD (hyperlipidemia); HTN (hypertension); Hx of CABG; DANTE (obstructive sleep apnea); Paroxysmal A-fib Weight on Admission: 158 lb, 0 oz Comment: Follow-up Instructions: With: Address: When: [facility] [address], [place] [address] Business (1) In 1 month 01/21/2019 With: Address: When: [facility] [address], [address] [place], [place] [id number] Business (1) Within 2 to 5 weeks [...] What foods can I eat? GrainsBreads, including Arabic, white, jie, wheat, raisin, rye, oatmeal, and Greek. Tortillas that are neither fried nor made with lard or trans fat. Low-fat rolls, including hotdog and hamburger buns and Marshallese muffins. Biscuits. Muffins. Waffles. Pancakes. Light popcorn. Whole-grain cereals. Flatbread. [place] toast. Pretzels. Breadsticks. Rusks. Low-fat snacks. Low-fat [...] cottage cheese. Whole-milk cheeses, including blue (fredo), Garden Armand, Brie, Nate, Togolese, Havarti, Cuban, cheddar, Camembert, and [place]. Whole or 2% milk that is liquid, [...] that has suet, meat fat, or shortening. [place] butter, hydrogenated oils, palm oil, coconut oil, [...] 12/25/2012 Document Revised: 03/10/2017 Document Reviewed: 02/04/2015 [employer] Interactive Patient Education ? 2017 [employer] Groin Site Care Refer to this [...] Document Reviewed: 11/05/2011 ExitCare? Patient Information ?2013 [employer]. Angiogram An angiogram, also called angiography, is [...] including vitamins, herbs, eye drops, creams, and jsmw-tco-ozicglz medicines. ??? Any problems you or family [...] 03/06/2014 Elsevier Interactive Patient Education ? 2017 [employer]. Medication Leaflets: valsartan (elin LILY foster) [...] valsartan; ?? if you are on a vma-omlh-qyys; ?? if you are dehydrated; or ?? [...] may report side effects to FDA at 6-012-MQF-4440. What other drugs will affect valsartan? Tell [...] may interact with valsartan, including prescription and yyee-kwv-yofbjfj medicines, vitamins, and herbal products. Not all [...] to ensure that the information provided by [employer]. ('[employer]') is accurate, up-to-date, and complete, but no guarantee is made to that effect. Drug information contained herein may be time sensitive. The [employer] information has been compiled for use by healthcare practitioners and consumers in the [place] and therefore [employer] does not warrant that uses outside of the [place] are appropriate, unless specifically indicated otherwise. [employer] drug information does not endorse drugs, diagnose patients or recommend therapy. [employer] drug information is an informational resource designed [...] effective or appropriate for any given patient. [facility] does not assume any responsibility for any aspect of healthcare administered with the aid of information [facility] provides. The information contained herein is not intended to cover all possible uses, directions, precautions, warnings, drug interactions, allergic reactions, or adverse effects. If you have questions about the drugs you are taking, check with your doctor, nurse or pharmacist. Copyright 3745-5572 [facility]. Version: 16.05. Revision Date: 09/08/2016. hydralazine (bob [...] may report side effects to FDA at 5-696-NBG-3264. What other drugs will affect hydralazine? Tell your doctor about all your current medicines and any you start or stop using, especially: ? diazoxide (an injectable blood pressure medication); or ?? an MAO inhibitor--isocarboxazid, linezolid, methylene blue injection, phenelzine, rasagiline, selegiline, tranylcypromine, and others. This list is not complete. Other drugs may interact with hydralazine, including prescription and tzot-inl-wfkboif medicines, vitamins, and herbal products. Not all [...] to ensure that the information provided by [employer]. [employer] is accurate, up-to-date, and complete, but no guarantee is made to that effect. Drug information contained herein may be time sensitive. [employer] information has been compiled for use by healthcare practitioners and consumers in the [place] and therefore [employer] does not warrant that uses outside of the [place] are appropriate, unless specifically indicated otherwise. [employer] drug information does not endorse drugs, diagnose patients or recommend therapy. [employer] drug information is an informational resource designed [...] effective or appropriate for any given patient. [employer] does not assume any responsibility for any aspect of healthcare administered with the aid of information [employer] provides. The information contained herein is not intended to cover all possible uses, directions, precautions, warnings, drug interactions, allergic reactions, or adverse effects. If you have questions about the drugs you are taking, check with your doctor, nurse or pharmacist. Copyright 3026-1568 [employer]. Version: 5.01. Revision Date: 10/26/2017. amlodipine [...] may report side effects to FDA at 7-528-QFS-9899. What other drugs will affect amlodipine? Tell your doctor about all your current medicines and any you start or stop using, especially: ? nitroglycerin; ?? simvastatin (Zocor, Simcor, Vytorin); or ?? any other heart or blood pressure medications. This list is not complete. Other drugs may interact with amlodipine, including prescription and pznn-bsn-okagxyq medicines, vitamins, and herbal products. Not all [...] to ensure that the information provided by [employer]. [employer]') is accurate, up-to-date, and complete, but no guarantee is made to that effect. Drug information contained herein may be time sensitive. [employer] information has been compiled for use by healthcare practitioners and consumers in the [place] and therefore [employer] does not warrant that uses outside of the [place] are appropriate, unless specifically indicated otherwise. [employer] drug information does not endorse drugs, diagnose patients or recommend therapy. [employer] drug information is an informational resource designed [...] effective or appropriate for any given patient. [employer] does not assume any responsibility for any aspect of healthcare administered with the aid of information [employer] provides. The information contained herein is not intended to cover all possible uses, directions, precautions, warnings, drug interactions, allergic reactions, or adverse effects. If you have questions about the drugs you are taking, check with your doctor, nurse or pharmacist. Copyright 9595-8730 [employer]. Version: 14.. Revision Date: 01/24/2017. clopidogrel [...] may report side effects to FDA at 1-949-FHB-7409. What other drugs will affect clopidogrel? Certain other medicines may increase your risk of bleeding, including aspirin. Avoid taking aspirin unless your doctor tells you to. Tell your doctor about all your other medicines, especially: ? any other medicines to treat or prevent blood clots; ?? a stomach acid bell hole digger such as omeprazole, Nexium, or Prilosec; ?? an antidepressant; ?? an opioid medication; ?? a blood thinner--warfarin, Coumadin, Jantoven; or ?? NSAIDs (nonsteroidal anti-inflammatory drugs)--ibuprofen (Advil, Motrin), naproxen (Aleve), celecoxib, diclofenac, indomethacin, meloxicam, and others. This list is not complete. Other drugs may affect clopidogrel, including prescription and bcfa-rzf-nqpghob medicines, vitamins, and herbal products. Not all [...] to ensure that the information provided by [employer] is accurate, up-to-date, and complete, but no guarantee is made to that effect. Drug information contained herein may be time sensitive. [employer] information has been compiled for use by healthcare practitioners and consumers in the [place] and therefore [employer] does not warrant that uses outside of the [place] are appropriate, unless specifically indicated otherwise. [employer] drug information does not endorse drugs, diagnose patients or recommend therapy. [employer] drug information is an informational resource designed [...] effective or appropriate for any given patient. [employer] does not assume any responsibility for any aspect of healthcare administered with the aid of information [employer] provides. The information contained herein is not intended to cover all possible uses, directions, precautions, warnings, drug interactions, allergic reactions, or adverse effects. If you have questions about the drugs you are taking, check with your doctor, nurse or pharmacist. Copyright 4459-0074 [employer]. Version: 15.01. Revision Date: 08/07/2018. ranolazine [...] following drugs: ? clarithromycin; ?? nefazodone; ?? Ephesus's wort; ?? antifungal medicine--itraconazole, ketoconazole; ?? HIV [...] may report side effects to FDA at 6-576-PVC-6482. What other drugs will affect ranolazine? Many [...] interact with ranolazine. This includes prescription and zfqx-ylv-bfpwhpz medicines, vitamins, and herbal products. Give a [...] to ensure that the information provided by [employer] is accurate, up-to-date, and complete, but no guarantee is made to that effect. Drug information contained herein may be time sensitive. [employer] information has been compiled for use by healthcare practitioners and consumers in the [place] and therefore [employer] does not warrant that uses outside of the [place] are appropriate, unless specifically indicated otherwise. [employer] drug information does not endorse drugs, diagnose patients or recommend therapy. [employer] drug information is an informational resource designed [...] effective or appropriate for any given patient. [employer] does not assume any responsibility for any aspect of healthcare administered with the aid of information [employer] provides. The information contained herein is not intended to cover all possible uses, directions, precautions, warnings, drug interactions, allergic reactions, or adverse effects. If you have questions about the drugs you are taking, check with your doctor, nurse or pharmacist. Copyright 5596-7533 [employer]. Version: 11.. Revision Date: 12/04/2015. CIGARETTE SMOKING: The facts are clear, cigarette smoking will shorten your life. Smoking can cause many illnesses along the way. As a healthcare provider, we recommend that you stop smoking. Assistance with quitting is available by contacting 2-468-WKLS-NOW. This is a free resource providing counseling, [...] Be sure to sign up for the [employer] patient portal, which gives you 09/05 access to your medical information ??? including these discharge instructions ??? using your computer, smartphone, or tablet. Just go to [facility] to get started. Questions? Call . [facility] would like to thank you for allowing us to assist you with your healthcare needs. MICHELE Skaggs JUDY D, (or open claims representative) have received the above patient education materials/instructions and have verbalized understanding: Patient Signature _ Date/Time Patient Circle Beveler Signature (if needed) Date/Time Clinician/Hospital Circle Beveler Signature (if needed) Date/Time Electronically signed by [facility], [facility] Conversion Casket Assembler Metal Cerner at 02/04/2023 1:57 PM CDT documented in this encounter Plan of Treatment Not on file documented as of this encounter Visit Diagnoses Not on filedocumented in this encounter Care Teams Bridge Construction Inspector Relationship Specialty Start Date End Date Jay Howell MD [address] [place] [phone] PCP - General Emergency Medicine 11/12/23 documented as of this encounter
--- OUTSIDE RECORDS SUMMARY | 2025-08-16 09:15 | XMS_ITS | Encounter Summary ---
Author Organization [employer] ([place], [place], [place], [place]) Address [address] [place] [address] Care Team Providers Care Disintegrator Name Role Phone Jay Howell MD Primary Care Provider [phone] Encounter Details Date Type Department Care Team (Late st Contact Info) Description 12/21/2018 Transcribed Document [facility] Family Medicine Replaced by [facility] [address] ProviderJessie MD [address] [place] [phone] Social History Tobacco Use Types Packs/Day Years Used Date Smoking Tobacco: Never Assessed Comments Unknown Sex and Gender Information Value Date Recorded Sex Assigned at Not on file Legal Sex Female 7:30 PM CDT Gender Identity Not on file Sexual Orientation Not on file documented as of this encounter Miscellaneous Notes * Cerner Conversion Note - Jessie ProviderMD - 12/21/2018 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 [address] , [place], [place] [id number] Patient Copy Patient Information: Name: SKYLER MONTOYA Current Date: 12/21/2018 12:17:17 : 1940 Patient Address: [address] [place] [phone] Patient Attending Physician: FREDY YAÑEZ MD-CAR Primary Care Provider: TARA CHEN (REF), -MED Primary Care Provider Discharge Diagnosis: CAD (coronary artery disease); DM (diabetes mellitus); Exertional angina; HLD (hyperlipidemia); HTN (hypertension); Hx of CABG; DANTE (obstructive sleep apnea); Paroxysmal A-fib Weight on Admission: 158 lb, 0 oz Comment: Follow-up Instructions: With: Address: When: [facility] [address], [place] [address] Business (1) In 1 month 01/21/2019 With: Address: When: [facility] [address], [address] [place], [place] [id number] Business (1) Within 2 to 5 weeks [...] What foods can I eat? GrainsBreads, including Danish, white, jie, wheat, raisin, rye, oatmeal, and Czech. Tortillas that are neither fried nor made with lard or trans fat. Low-fat rolls, including hotdog and hamburger buns and Turkish muffins. Biscuits. Muffins. Waffles. Pancakes. Light popcorn. [...] cottage cheese. Whole-milk cheeses, including blue (fredo), Maroa Armand, Brie, Nate, Australian, Havarti, Beninese, cheddar, Camembert, and Monkton. Whole or 2% milk that is liquid, [...] that has suet, meat fat, or shortening. Otis butter, hydrogenated oils, palm oil, coconut oil, [...] can cause a heart attack (myocardial infarction, [place]). CAD is a leading cause of for [...] 12/25/2012 Document Revised: 03/10/2017 Document Reviewed: 02/04/2015 [employer] Interactive Patient Education ? 2017 [employer]. Groin Site Care Refer to this [...] Document Reviewed: 11/05/2011 ExitCare? Patient Information ?2013 [employer]. Angiogram An angiogram, also called angiography, is [...] including vitamins, herbs, eye drops, creams, and qckp-hdj-xibbfan medicines. ??? Any problems you or family [...] 07/13/2006 Document Revised: 03/16/2017 Document Reviewed: 03/06/2014 [employer] Interactive Patient Education ? 2017 [employer]. Medication Leaflets: valsartan (elin BAUTISTA foster) Rivka [...] valsartan; ?? if you are on a bmy-obmd-jpzq; ?? if you are dehydrated; or ?? [...] may report side effects to FDA at 5-821-PWT-8111. What other drugs will affect valsartan? Tell [...] may interact with valsartan, including prescription and uclj-iyp-fvrfecu medicines, vitamins, and herbal products. Not all [...] to ensure that the information provided by [employer]. ('[employer]') is accurate, up-to-date, and complete, but no guarantee is made to that effect. Drug information contained herein may be time sensitive. [employer] information has been compiled for use by healthcare practitioners and consumers in the [place] and therefore [employer]istic does not warrant that uses outside of the [place] are appropriate, unless specifically indicated otherwise. [employer] drug information does not endorse drugs, diagnose patients or recommend therapy. [employer] drug information is an informational resource designed [...] effective or appropriate for any given patient. [employer] does not assume any responsibility for any aspect of healthcare administered with the aid of information Zimplistic provides. The information contained herein is not intended to cover all possible uses, directions, precautions, warnings, drug interactions, allergic reactions, or adverse effects. If you have questions about the drugs you are taking, check with your doctor, nurse or pharmacist. Copyright 5299-7859 [employer]. Version: 16.05. Revision Date: 09/08/2016. hydralazine (bob [...] may report side effects to FDA at 0-667-SUQ-7539. What other drugs will affect hydralazine? Tell your doctor about all your current medicines and any you start or stop using, especially: ? diazoxide (an injectable blood pressure medication); or ?? an MAO inhibitor--isocarboxazid, linezolid, methylene blue injection, phenelzine, rasagiline, selegiline, tranylcypromine, and others. This list is not complete. Other drugs may interact with hydralazine, including prescription and yxpt-sum-goslclp medicines, vitamins, and herbal products. Not all [...] to ensure that the information provided by [employer]. ('Multum') is accurate, up-to-date, and complete, but no guarantee is made to that effect. Drug information contained herein may be time sensitive. [employer] information has been compiled for use by healthcare practitioners and consumers in the [place] and therefore [employer]istic does not warrant that uses outside of the [place] are appropriate, unless specifically indicated otherwise. [employer]'s drug information does not endorse drugs, diagnose patients or recommend therapy. [employer] drug information is an informational resource designed [...] effective or appropriate for any given patient. [employer] does not assume any responsibility for any aspect of healthcare administered with the aid of information [employer]istic provides. The information contained herein is not intended to cover all possible uses, directions, precautions, warnings, drug interactions, allergic reactions, or adverse effects. If you have questions about the drugs you are taking, check with your doctor, nurse or pharmacist. Copyright 2549-2479 [employer]. Version: 5.01. Revision Date: 10/26/2017. amlodipine (am CAS reyes) [facility] What is the most important information [...] may report side effects to FDA at 1-034-RMR-3802. What other drugs will affect amlodipine? Tell your doctor about all your current medicines and any you start or stop using, especially: ? nitroglycerin; ?? simvastatin (Zocor, Simcor, Vytorin); or ?? any other heart or blood pressure medications. This list is not complete. Other drugs may interact with amlodipine, including prescription and eels-rft-rvkrxiw medicines, vitamins, and herbal products. Not all [...] to ensure that the information provided by [employer]. ('[employer]') is accurate, up-to-date, and complete, but no guarantee is made to that effect. Drug information contained herein may be time sensitive. [employer]istic information has been compiled for use by healthcare practitioners and consumers in the [place] and therefore [employer]istic does not warrant that uses outside of the [place] are appropriate, unless specifically indicated otherwise. [employer] drug information does not endorse drugs, diagnose patients or recommend therapy. [employer] drug information is an informational resource designed [...] effective or appropriate for any given patient. [employer] does not assume any responsibility for any aspect of healthcare administered with the aid of information Zimplistic provides. The information contained herein is not intended to cover all possible uses, directions, precautions, warnings, drug interactions, allergic reactions, or adverse effects. If you have questions about the drugs you are taking, check with your doctor, nurse or pharmacist. Copyright 2500-5566 [employer]. Version: 14.01. Revision Date: 01/24/2017. clopidogrel (kloe [...] may report side effects to FDA at 3-126-EST-9700. What other drugs will affect clopidogrel? Certain other medicines may increase your risk of bleeding, including aspirin. Avoid taking aspirin unless your doctor tells you to. Tell your doctor about all your other medicines, especially: ? any other medicines to treat or prevent blood clots; ?? a stomach acid upscale security officer such as omeprazole, Nexium, or Prilosec; ?? an antidepressant; ?? an opioid medication; ?? a blood thinner--warfarin, Coumadin, Jantoven; or ?? NSAIDs (nonsteroidal anti-inflammatory drugs)--ibuprofen (Advil, Motrin), naproxen (Aleve), celecoxib, diclofenac, indomethacin, meloxicam, and others. This list is not complete. Other drugs may affect clopidogrel, including prescription and tysa-nvt-yatsksi medicines, vitamins, and herbal products. Not all [...] to ensure that the information provided by [employer]. ('Multum') is accurate, up-to-date, and complete, but no guarantee is made to that effect. Drug information contained herein may be time sensitive. [employer]istic information has been compiled for use by healthcare practitioners and consumers in the [place] and therefore [employer]implistic does not warrant that uses outside of the [place] are appropriate, unless specifically indicated otherwise. [employer]uts drug information does not endorse drugs, diagnose patients or recommend therapy. [employer] drug information is an informational resource designed [...] effective or appropriate for any given patient. [employer] does not assume any responsibility for any aspect of healthcare administered with the aid of information Zimplistic provides. The information contained herein is not intended to cover all possible uses, directions, precautions, warnings, drug interactions, allergic reactions, or adverse effects. If you have questions about the drugs you are taking, check with your doctor, nurse or pharmacist. Copyright 4406-1828 [employer]Well[employer]. Version: 15.01. Revision Date: 08/07/2018. ranolazine (ra [...] may report side effects to FDA at 2-001-XUQ-9855. What other drugs will affect ranolazine? Many [...] interact with ranolazine. This includes prescription and qtdn-knq-wymjsfx medicines, vitamins, and herbal products. Give a [...] to ensure that the information provided by [employer]. ('Multum') is accurate, up-to-date, and complete, but no guarantee is made to that effect. Drug information contained herein may be time sensitive. Zimplistic information has been compiled for use by healthcare practitioners and consumers in the [place] and therefore [employer]implistic does not warrant that uses outside of the [place] are appropriate, unless specifically indicated otherwise. Zimplistic's drug information does not endorse drugs, diagnose patients or recommend therapy. [employer]uts drug information is an informational resource designed [...] effective or appropriate for any given patient. [employer] does not assume any responsibility for any aspect of healthcare administered with the aid of information Zimplistic provides. The information contained herein is not intended to cover all possible uses, directions, precautions, warnings, drug interactions, allergic reactions, or adverse effects. If you have questions about the drugs you are taking, check with your doctor, nurse or pharmacist. Copyright 5176-5627 [employer]Well.[employer]. Version: 11.. Revision Date: 12/04/2015. CIGARETTE SMOKING: The facts are clear, cigarette smoking will shorten your life. Smoking can cause many illnesses along the way. As a healthcare provider, we recommend that you stop smoking. Assistance with quitting is available by contacting 3-286-VSWI-NOW. This is a free resource providing counseling, [...] Be sure to sign up for the VoxFeed patient portal, which gives you 09/05 access to your medical information ??? including these discharge instructions ??? using your computer, smartphone, or tablet. Just go to [employer]Loft to get started. Questions? Call . [facility] would like to thank you for allowing us to assist you with your healthcare needs. MICHELE Skaggs JUDY D, (or warehouse representative) have received the above patient education materials/instructions and have verbalized understanding: Patient Signature _ Date/Time Patient Bindery Leadperson Signature (if needed) Date/Time Clinician/Hospital Bindery Leadperson Signature (if needed) Date/Time Electronically signed by Sivan, [facility] Conversion Senior Health Physics Technician Cerner at 02/04/2023 2:01 PM CDT documented in this encounter Plan of Treatment Not on file documented as of this encounter Visit Diagnoses Not on filedocumented in this encounter Care Teams Disintegrator Relationship Specialty Start Date End Date Jay Howell MD [address] [place] [phone] PCP - General Emergency Medicine 11/12/23 documented as of this encounter
--- OUTSIDE RECORDS SUMMARY | 2025-08-16 09:15 | XMS_ITS | Encounter Summary ---
Author Organization [employer] ([place], [place], [place], [place]) Address [address] [place] [address] Care Team Providers Care Access Analyst Name Role Phone Jay Howell MD Primary Care Provider [phone] Encounter Details Date Type Department Care Team (Late st Contact Info) Description 02/13/2021 Transcribed Document [facility] Family Medicine [address] [place] [address] ProviderJessie MD [address] [place], [place] [address] Social History Tobacco Use Types Packs/Day Years Used Date Smoking Tobacco: Never Assessed Comments Unknown Sex and Gender Information Value Date Recorded Sex Assigned at Not on file Legal Sex Female 7:30 PM CDT Gender Identity Not on file Sexual Orientation Not on file documented as of this encounter Miscellaneous Notes * Cerner Conversion Note - Historical ProviderMD - 02/13/2021 11:[address] [facility] Saji IntraOp Summary Primary Physician: FABY GRIMM MD Finalized Date/Time: 02/13/21 12:03:45 Pt. Name: SKYLER MONTOYAO.B./Sex: 1940 Female Med Rec #: [id number] Physician: FABY GRIMM MD Financial #: [id number] Pt. Type: O Room/Bed: END/ Admit/Disch: 02/13/21 09:44:00 - Institution: [facility] - Case Attendance Entry 1 Entry 2 Entry 3 Case Attendee FABY GRIMM MD MILLER, MELISSA A RN ELVIN HUNG Role Performed Surgeon/Proceduralist, Table Games Shift Manager, First Scrub, First First Time In 02/13/21 [...] M, STEPHANIE, Denisa Anderson Rn -ANS MANAGER ARMY-ANS Role Performed Anesthesiologist of MANAGER ARMY/Nurse Library Monitor Table Games Shift Manager, First Record Time In 02/13/21 11:35:00 02/13/21 [...] RN 02/13/21 12:00:47 02/13/21 12:00:47 02/13/21 12:00:47 [facility] Endo - Case Attendance Audit 02/13/21 12:00:47 Tactical Debriefer: [id number] Modifier: [id number] 1 <+> Time Out 1 <*> Procedure [...] Biopsy, Colon Biopsy, Colon Polypectomy 02/13/21 12:00:36 Tactical Debriefer: [id number] Modifier: [id number] 1 <*> Procedure Colonoscopy, Esophagogastroduodenoscopy, Esophageal Biopsy, Gastric Biopsy, Colon Biopsy 2 <*> Procedure Esophageal Biopsy, Gastric Biopsy, Colon Biopsy 3 <*> Procedure Esophageal Biopsy, Gastric Biopsy, Colon Biopsy 4 <*> Procedure Esophageal Biopsy, Gastric Biopsy, Colon Biopsy 5 <*> Procedure Esophageal Biopsy, Gastric Biopsy, Colon Biopsy 6 <*> Procedure Esophageal Biopsy, Gastric Biopsy, Colon Biopsy 02/13/21 11:58:05 Tactical Debriefer: [id number] Modifier: [id number] 1 <*> Procedure Colonoscopy, Esophagogastroduodenoscopy <+> 2 Procedure <+> 3 Procedure <+> 4 Procedure <+> 5 Procedure <+> 6 Procedure 02/13/21 11:48:04 Tactical Debriefer: [email or web address] Modifier: [id number] 1 <+> Time In 1 <*> Procedure Colonoscopy, Esophagogastroduodenoscopy <+> 2 Time In <+> 2 Time Out <+> 3 Time In <+> 4 Time In <+> 5 Time In <+> 6 Case Attendee <+> 6 Role Performed <+> 6 Time In 02/13/21 11:38:46 Tactical Debriefer: GIULIA Modifier: [email or web address] <+> 2 Case Attendee <+> 2 Role Performed <+> 3 Case Attendee <+> 3 Role Performed <+> 4 Case Attendee <+> 4 Role Performed <+> 5 Case Attendee <+> [address] [facility] Endo - Case times Entry 1 Patient In Room Time 02/13/21 11:35:00 Out Room Time 02/13/21 12:02:00 Anesthesia Start Time 02/13/21 11:35:00 Stop Time 02/13/21 12:02:00 Surgery / Procedure Times Start Time 02/13/21 11:43:00 Stop Time 02/13/21 12:00:00 Last Modified By: Denisa Anderson RN 02/13/21 12:00:45 [facility] Endo - Case times Audit 02/13/21 12:00:45 Tactical Debriefer: [id number] Modifier: [id number] <+> 1 Out Room Time <+> 1 Stop Time <+> 1 Stop Time 02/13/21 11:45:26 Tactical Debriefer: [email or web address] Modifier: [id number] <+> [address] [facility] Endo - Cautery Entry 1 ESU Identification Cautery Type Monopolar ESU ID Number [id number] ID Type Hospital Number Cautery Settings Cut Setting 5 Coag Setting 25 ESU Grounding Pad Ground Pad Type Adult Grounding Pad Site Right thigh Grounding Pad ELVIN HUNG Applied By Grounding Pad Site Warm, dry and intact Skin Condition Before Cautery Grounding Pad Site Unchanged Skin Condition After Cautery Last Modified By: Denisa Anderson RN 02/13/21 12:03:44 [facility] Endo - Cautery Audit 02/13/21 12:03:44 Tactical Debriefer: [id number] Modifier: [id number] <+> [address] [facility] Endo - Cultures and Spec Summary Entry 1 Cultrures and Specimens Specimen Ordered: Yes Test(s) Routine/Path-Lab Requested/Final Disposition Last Modified By: Denisa Anderson RN 02/13/21 11:59:20 [facility] Endo - Delays Entry 1 Delay Reason Other, No Delay Duration 0 Minute(s) Last Modified By: LO HOFF RN 02/13/21 11:38:59 [facility] Endo - Departure from OR Entry 1 Integumentary Assessment Integumentary WDL Assessment WDL Transfer/Handoff Transfer to PACU Phase I Handoff Method Bedside/Face to face Post-op Transport Stretcher/Gurney Via Patient Transport LO HOFF RN, Accompanied by TRENTON GONZALEZ APRN, MANAGER ARMY-ANS Last Modified By: LO HOFF RN 02/13/21 11:39:01 [facility] Endo - Endoscopy Details Entry 1 Abdomen Procedure Soft, Non-Tender Assessment Procedure Abdomen 02/13/21 11:39:00 Assessment D/T Radio Frequency Ablation Abdominal Pressure Last Modified By: LO HOFF RN 02/13/21 11:39:05 [facility] Endo - Fire Risk Assessment [...] Modified By: LO HOFF RN 02/13/21 11:39:08 [facility] Endo - General Case Parquet Floor Layer'S Helper 1 Case Information OR Endo 01 [facility] Case Level 1 Room Verified Yes Wound Class III - Contaminated Specialty Gastroenterology Anesthesia Type General ASA Class 4 Diagnosis Preop Diagnosis dyspepsia, change in bowel habits Postop Same As Preop No Postop Diagnosis chronic gastritis, alexis's esophagus, IBS, colon polyp Last Modified By: Denisa Anderson RN 02/13/21 12:02:28 [facility] Endo - General Case Data Audit 02/13/21 12:02:28 Tactical Debriefer: [email or web address] Modifier: [id number] 1 <*> Postop Same As Preop Yes 1 <*> Postop Diagnosis dyspepsia, change in bowel habits [facility] Endo - Intraoperative Assessment Entry 1 Valid History / Yes Physical in Chart Preoperative Yes Checklist Reviewed/Evaluated Patient is Latex No Sensitive Level of WDL Consciousness (WDL = Alert, Oriented to Person, Place, and Time) Last Modified By: LO HOFF RN 02/13/21 11:39:33 [facility] Endo - Intraoperative Equipment Entry 1 Equipment Intraop Monitoring Electrocardiogram Three lead placement (ECG) Electrode Placement Blood Pressure Arm, left upper Location Pulse Oximeter Hand, right Probe Site Antiembolic Devices Scopes Flexible Endoscopes Gastroscope Used Scope Serial E, P Number/Identificatio n Number Photo/Video Documentation Photo Yes Video No Last Modified By: LO HOFF RN 02/13/21 11:39:46 [facility] Endo - Patient Positioning Entry 1 Procedure Esophagogastroduodenosco py Body Position Lateral, right side up Left Arm Position Resting at side Right Arm Position Resting at side Left Leg Position Other Right Leg Position Other Position Comments Right leg over left leg, uncrossed Feet Uncrossed Yes Pressure Points Yes Checked Positioned By OL HOFF RN Position Verified Positioning Yes Verified by Surgeon Last Modified By: LO HOFF RN 02/13/21 11:39:48 [facility] Endo - Sign In Entry 1 Patient, Site, Yes Procedure Identified Surgical Consent Yes Confirmed Surgical Site N/A Marked by person performing procedure Airway Hypothermia Risk No Warming Measures No Taken Last Modified By: LO HOFF RN 02/13/21 11:39:54 [facility] Endo - Sign Out Entry [...] Modified By: Denisa Anderson RN 02/13/21 12:01:16 [facility] Endo - Surgical Procedures Entry [...] RN 02/13/21 12:01:06 02/13/21 12:01:06 02/13/21 12:01:06 [facility] Endo - Surgical Procedures Audit 02/13/21 12:01:06 Tactical Debriefer: [id number] Modifier: [id number] <+> 1 Stop <+> 3 Stop <+> 4 Stop <+> 5 Stop <+> 6 Stop 02/13/21 12:00:33 Tactical Debriefer: [id number] Modifier: [id number] <+> 6 Procedure <+> 6 Primary Procedure <+> 6 Primary Surgeon <+> 6 Specialty <+> 6 Start <+> 6 Wound Class <+> 6 Anesthesia Type <+> 6 Additional Procedure Description <+> 6 Physician States Cecum Reached 02/13/21 11:58:01 Tactical Debriefer: [email or web address] Modifier: [id number] 1 <*> Procedure Colonoscopy 1 <+> Start [...] Anesthesia Type <+> [address] [facility] Endo - Time Out Entry [...] on filedocumented in this encounter Care Teams Access Analyst Relationship Specialty Start Date End Date Jay Howell MD [address] [place] [phone] PCP - General Emergency Medicine 11/12/23 documented as of this encounter
--- OUTSIDE RECORDS SUMMARY | 2025-08-16 09:15 | XMS_ITS | Encounter Summary ---
Author Organization [employer] ([place], [place], [place], [place]) Address [address] [place] [address] Care Team Providers Care Technical Support Specialist Name Role Phone Jay Howell MD Primary Care Provider [phone] Encounter Details Date Type Department Care Team (Late st Contact Info) Description 02/13/2021 Transcribed Document [facility] [place] [facility] [place] [address] ProviderJessie MD [address] [place], [place] [id number] Social History Tobacco Use Types Packs/Day Years [...] Source : Stated Height Entry Format : Lyndon Height, Feet : 5 ft(Converted to: 152 cm, 60 Inch) Height, Inches : 4 Inch(Converted to: 0 ft 4 Inch, 10.16 cm) Clinical Height : 162.56 cm Weight Source : Standing scale Weight Entry Format : Lyndon Clinical Dosing Weight : 71.64 kg Weight, Pounds : 157.6 lb Body Surface Area (BSA) : 1.77 m2 Body Mass Index : 27.1 kg/m2 (HI) Clarks Body Weight : 54 kg Ludivina Tompkins [...] test? : No Ludivina Tompkins RN-PATIENT CARE [facility] - 02/13/2021 10:47 EDT Anesthesia/Transfusion History Family History of Anesthesia Reaction : Prior transfusion reaction Type of Transfusion Reaction : Hemolytic reaction Transfusion History : Prior anesthesia without reaction Family History of Anesthesia Reaction : None Ludivina Tompkins RN-PATIENT CARE [facility] - 02/13/2021 10:47 EDT Functional Assessment Living Situation : Home Current Home Treatments : Blood glucose monitoring, CPAP Ludivina Tompkins RN-PATIENT CARE [facility] - 02/13/2021 10:47 EDT [place] Suicide Severity Rating Scale (C-SSRS) CSSRS Past Month Wish to be : No CSSRS Past Month Suicidal Thoughts : No CSSRS Lifetime Suicide Behavior : No Suicide Severity Rating Score : 0 Suicide Severity Rating : No Additional Care Required at this time Ludivina Tompkins RN-PATIENT CARE [facility] - 02/13/2021 10:47 EDT Psychosocial History Chronic/Terminal Illness w/Freq Visits : No Currently in Unsafe Situation : No Ludivina Tompkins RN-PATIENT CARE [facility] - 02/13/2021 10:47 EDT Advance Directive Patient has Advance Directive *Q : No, patient refuses Advance Directive information Ludivina Tompkins RN-PATIENT CARE [facility] - 02/13/2021 10:47 EDT General Info Preferred Name : ilsa Support Person/Patient Sausage Cutter : Yes Support Person/Pt Rep Name : Willard Contact Password : Marvin Support Person/Pt Rep Contact Information : [phone] Want Family/Rep/Phys Notified of Admit : No Emergency Contact #1 : Johnny Montoya Emergency Contact #1 Emergency Contact #1 Relationship : spouse Emergency Contact #2 : - Emergency Contact #2 Phone Number : - Emergency Contact #2 Relationship : - Primary Language : Filipino Preferred Communication Mode : Verbal Communication Barrier : None Supervisor Cutting Department Needed : Ludivina Tong RN-PATIENT CARE BEDSIDE [...] Scale Risk Level : 25-45 Medium Risk [place] Fall Interventions : Adequate lighting, Bed in [...] EDT Electronically signed by Gayle Finnegan Conversion Furniture Lumber Production Worker Cerner at 02/04/2023 2:06 PM CDT documented in this encounter Plan of Treatment Not on file documented as of this encounter Visit Diagnoses Not on filedocumented in this encounter Care Teams Technical Support Specialist Relationship Specialty Start Date End Date Jay Howell MD [address] [place] [phone] PCP - General Emergency Medicine 11/12/23 documented as of this encounter
--- OUTSIDE RECORDS SUMMARY | 2025-08-16 09:15 | XMS_ITS | Encounter Summary ---
Author Organization [employer] ([place], [place], [place], [place]) Address [address] [place] [address] Care Team Providers Care Job Superintendent Name Role Phone Jay Howell MD Primary Care Provider [phone] Encounter Details Date Type Department Care Team (Late st Contact Info) Description 12/21/2018 Transcribed Document [facility] [place] Family Medicine [address] [place] [address] ProviderJessie MD [address] [place] [address] Social History Tobacco Use Types Packs/Day Years Used Date Smoking Tobacco: Never Assessed Comments Unknown Sex and Gender Information Value Date Recorded Sex Assigned at Not on file Legal Sex Female 7:30 PM CDT Gender Identity Not on file Sexual Orientation Not on file documented as of this encounter Miscellaneous Notes * Cerner Conversion Note - Historical ProviderMD - 12/21/2018 9:20 AM 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 Spiritual Care Short Form Entered On: 12/21/2018 22:31 EST Performed On: 12/21/2018 9:20 EST by JAZZ PINA Chaplain-Non Cert General Information, Spiritual Care Spiritual Care Referred by : Umbrella Tipper Hand initiated Reason for Visit : Initial Ministry Provided to : Patient Intervention/Comment/Summary Points : Visited conducted by Spiritual Supply Tech shilo Velasquez Religion Preference : Cheondoism JAZZ PINA Chaplain-Magalis Del Castillo - 12/21/2018 22:31 EST documented in this encounter Plan of Treatment Not on file documented as of this encounter Visit Diagnoses Not on filedocumented in this encounter Care Teams Job Superintendent Relationship Specialty Start Date End Date Jay Howell MD [address] [place] [phone] PCP - General Emergency Medicine 11/12/23 documented as of this encounter
--- OUTSIDE RECORDS SUMMARY | 2025-08-16 09:15 | XMS_ITS | Encounter Summary ---
Author Organization [employer] ([place], [place], [place], [place]) Address [address] [place] [address] Care Team Providers Care Pipe Changer Name Role Phone Jay Howell MD Primary Care Provider [phone] Encounter Details Date Type Department Care Team (Late st Contact Info) Description 12/21/2018 Transcribed Document [facility] [place] [address] [place] [address] ProviderJessie MD [address] [place] [address] Social History Tobacco Use Types Packs/Day Years Used Date Smoking Tobacco: Never Assessed Comments Unknown Sex and Gender Information Value Date Recorded Sex Assigned at Not on file Legal Sex Female 7:30 PM CDT Gender Identity Not on file Sexual Orientation Not on file documented as of this encounter Miscellaneous Notes * Cerner Conversion Note - Jessie ProviderMD - 12/21/2018 9:33 AM GAS CONTROLLER Care Management Assessment/Plan Entered On: 12/21/2018 9:34 EST Performed On: 12/21/2018 9:33 EST by ANISH BRAN RN Care Management Note Care Management Note Report : ANISH BRAN RN - 12/21/18 09:37:01 Discharging today ANISH BRAN RN - 12/21/2018 12:24 EST Care Management Note : Order for cardiac rehab to the program at [facility] - they will ocntact pt Documentation [...] - 12/21/2018 9:33 EST Electronically signed by [facility], [facility] Conversion Continuity Reader Cerner at 02/04/2023 2:07 PM CDT documented in this encounter Plan of Treatment Not on file documented as of this encounter Visit Diagnoses Not on filedocumented in this encounter Care Teams Pipe Changer Relationship Specialty Start Date End Date Jay Howell MD [address] [place] [phone] PCP - General Emergency Medicine 11/12/23 documented as of this encounter
--- OUTSIDE RECORDS SUMMARY | 2025-08-16 09:15 | XMS_ITS | Encounter Summary ---
Author Organization [employer] ([place], [place], [place], [place]) Address [address] [place] [address] Care Team Providers Care Top Waddy Name Role Phone Jay Howell MD Primary Care Provider [phone] Encounter Details Date Type Department Care Team (Late st Contact Info) Description 12/20/2018 Transcribed Document [facility] [place] Family Medicine [address] [place] [address] ProviderJessie MD [address] [place] [address] Social History Tobacco Use Types Packs/Day Years Used Date Smoking Tobacco: Never Assessed Comments Unknown Sex and Gender Information Value Date Recorded Sex Assigned at Not on file Legal Sex Female 7:30 PM CDT Gender Identity Not on file Sexual Orientation Not on file documented as of this encounter Miscellaneous Notes * Cerner Conversion Note - Jessie Yuen MD - 12/20/2018 8:00 AM SWAT TEAM MEMBER Patient: SKYLER MONTOYA Age: 77 years Sex: Female : 1940 Associated Diagnoses: None Author: FREDY PACHECO MD-CAR Basic Information PCP: Dr. Moeller Lode Miner: Stephania Garcia MD Chief Complaint Pre-op clearance; shoulder surgery with Dr. Prieto Watters at [facility] Stress test 12/06/18; abnormal History of [...] All Problems Chest pain / SNOMED CT 99586559 / Complaint of Cataract / Patient Care / Confirmed Glaucoma / Patient Care / Confirmed Coronary artery disease / SNOMED CT 8277633673 / Confirmed Stented coronary artery / SNOMED CT 3987908723 / Confirmed High blood pressure / SNOMED CT 35864882 / Confirmed Hyperlipidemia / SNOMED CT 15017166 / Confirmed Clotting disorder / SNOMED CT 506297271 / Confirmed COPD / SNOMED CT 77188725 / Confirmed GERD - Gastro-esophageal reflux disease / SNOMED CT 3044585662 / Confirmed Multiple renal cysts / SNOMED CT 823143236 / Confirmed UTI - Urinary tract infection / SNOMED CT 8438958301 / Confirmed Arthritis / SNOMED CT 6919221 / Confirmed Diabetes mellitus / SNOMED CT 468345150 / Confirmed Blood clot / SNOMED CT 332403583 / Confirmed Emphysema / SNOMED CT 431045950 / Confirmed Apnea, sleep / SNOMED CT 555536162 / Confirmed Hx of pulmonary embolus / SNOMED CT 825073736 / Confirmed Chronic anticoagulation / SNOMED CT 508766074 / Confirmed Atrial fibrillation with RVR / SNOMED CT 6786827453 / Confirmed History of obstructive sleep apnea / IMO [id number] / Confirmed Histories No education data available. [...] History: Active Cataract Glaucoma Coronary artery disease (6903538130) Stented coronary artery (2007511319) High blood pressure (31033567) Hyperlipidemia (11329515) COPD (83732498) GERD - Gastro-esophageal reflux disease (2049269107) Multiple renal cysts (364565826) UTI - Urinary tract infection (5612160634) Arthritis (5347414) Diabetes mellitus (060098276) Emphysema (981198428) Apnea, sleep (791315491) Hx of pulmonary embolus (398618604) Chronic anticoagulation (894957277) Atrial fibrillation with RVR (2858713364) Family History: Cardiomyopathy Child Stroke Brother Heart attack Brother Sister Leukemia Child Cancer Father Mother Sister Coronary heart disease Child Procedure history: femur repair. Appendectomy (395730927). uterine suspension. Hysterectomy (021585705). back surgury. Coronary artery bypass graft (517561693). Cholecystectomy (07249033). Hip replacement (1876242272). cataract surgury. Social History Social & Psychosocial [...] of motion, Normal strength. Integumentary: Warm, Dry, Landa. Neurologic: Alert, Oriented. Psychiatric: Cooperative. Review / [...] on filedocumented in this encounter Care Teams Top Waddy Relationship Specialty Start Date End Date Jay Howell MD [address] [place] [phone] PCP - General Emergency Medicine 11/12/23 documented as of this encounter
--- OUTSIDE RECORDS SUMMARY | 2025-08-16 09:15 | XMS_ITS | Encounter Summary ---
Author Organization [employer] ([place], [place], [place], [place]) Address [address] [place] [address] Care Team Providers Care Linen Supply Load Builder Name Role Phone Jay Howell MD Primary Care Provider [phone] Encounter Details Date Type Department Care Team (Late st Contact Info) Description 03/03/2021 Transcribed Document [facility] [place] [facility] [place] [address] ProviderJessie MD [address] [place] [phone] Social History Tobacco Use Types Packs/Day Years [...] on filedocumented in this encounter Care Teams Linen Supply Load Builder Relationship Specialty Start Date End Date Jay Howell MD [address] [place] [phone] PCP - General Emergency Medicine 11/12/23 documented as of this encounter
--- OUTSIDE RECORDS SUMMARY | 2025-08-16 09:15 | XMS_ITS | Encounter Summary ---
Author Organization [employer] ([place], [place], [place], [place]) Address [address] [place] [address] Care Team Providers Care Mortgage Loan Funder Name Role Phone Jay Howell MD Primary Care Provider [phone] Encounter Details Date Type Department Care Team (Late st Contact Info) Description 12/20/2018 Transcribed Document [facility] [place] Family Medicine [address] [place] [address] ProviderJessie MD [address] [place] [address] Social History Tobacco Use Types Packs/Day Years Used Date Smoking Tobacco: Never Assessed Comments Unknown Sex and Gender Information Value Date Recorded Sex Assigned at Not on file Legal Sex Female 7:30 PM CDT Gender Identity Not on file Sexual Orientation Not on file documented as of this encounter Miscellaneous Notes * Cerner Conversion Note - Historical ProviderMD - 12/20/2018 3:14 PM FIELD WORKER Pain Assessment Entered On: 12/21/2018 4:53 [...] form. Electronically signed by Gayle Finnegan Conversion Medical Insurance Claims Specialist Cerner at 02/04/2023 2:13 PM CDT documented in this encounter Plan of Treatment Not on file documented as of this encounter Visit Diagnoses Not on filedocumented in this encounter Care Teams Mortgage Loan Funder Relationship Specialty Start Date End Date Jay Howell MD [address] [place] [phone] PCP - General Emergency Medicine 11/12/23 documented as of this encounter
--- OUTSIDE RECORDS SUMMARY | 2025-08-16 09:15 | XMS_ITS | Encounter Summary ---
Author Organization [employer] ([place], [place], [place], [place]) Address [address] [place] [address] Care Team Providers Care Refinery Operator Helper Cracking Unit Name Role Phone Jay Howell MD Primary Care Provider [phone] Encounter Details Date Type Department Care Team (Late st Contact Info) Description 12/21/2018 Transcribed Document [facility] [place] [address] ProviderJessie MD [address] [place] [address] Social History Tobacco Use Types Packs/Day Years Used Date Smoking Tobacco: Never Assessed Comments Unknown Sex and Gender Information Value Date Recorded Sex Assigned at Not on file Legal Sex Female 7:30 PM CDT Gender Identity Not on file Sexual Orientation Not on file documented as of this encounter Miscellaneous Notes * Cerner Conversion Note - Jessie Yuen MD - 12/21/2018 11:48 AM FOLDER STITCHER OPERATOR [address] , [place], [place] [id number] Patient Copy Patient Information: Name: SKYLER MONTOYA Current Date: 12/21/2018 11:48:11 : 1940 Patient Address: [address] [place] [id number] Patient Attending Physician: FREDY YAÑEZ MD-CAR Primary Care Provider: TARA CHEN (REF), -MED Primary Care Provider Discharge Diagnosis: CAD (coronary artery disease); DM (diabetes mellitus); Exertional angina; HLD (hyperlipidemia); HTN (hypertension); Hx of CABG; DANTE (obstructive sleep apnea); Paroxysmal A-fib Weight on Admission: 158 lb, 0 oz Comment: Follow-up Instructions: With: Address: When: [facility] [address], [place] [address] Business (1) In 1 month 01/21/2019 With: Address: When: [facility] [address], [address] [place], [place] [id number] Business (1) Within 2 to 5 weeks [...] What foods can I eat? GrainsBreads, including Albanian, white, jie, wheat, raisin, rye, oatmeal, and Estonian. Tortillas that are neither fried nor made with lard or trans fat. Low-fat rolls, including hotdog and hamburger buns and Botswanan muffins. Biscuits. Muffins. Waffles. Pancakes. Light popcorn. Whole-grain cereals. Flatbread. [place] toast. Pretzels. Breadsticks. Rusks. Low-fat snacks. Low-fat [...] cottage cheese. Whole-milk cheeses, including blue (fredo), [place] Armand, Brie, Nate, Montenegrin, Havarti, Qatari, cheddar, Camembert, and [place]. Whole or 2% milk that is liquid, [...] that has suet, meat fat, or shortening. [place] butter, hydrogenated oils, palm oil, coconut oil, [...] can cause a heart attack (myocardial infarction, [place]). CAD is a leading cause of for [...] 12/25/2012 Document Revised: 03/10/2017 Document Reviewed: 02/04/2015 Runivermag Interactive Patient Education ? 2017 Runivermag Inc. Groin Site Care Refer to this [...] Document Reviewed: 11/05/2011 ExitCare? Patient Information ?2013 Intuitive User Interfaces. Angiogram An angiogram, also called angiography, is [...] including vitamins, herbs, eye drops, creams, and ihnt-fhz-gvmhqdn medicines. ??? Any problems you or family [...] 03/06/2014 Elsevier Interactive Patient Education ? 2017 Runivermag Inc. Medication Leaflets: valsartan (elin LILY foster) [...] valsartan; ?? if you are on a xos-utnn-egmv; ?? if you are dehydrated; or ?? [...] may report side effects to FDA at 9-330-FIU-0233. What other drugs will affect valsartan? Tell [...] may interact with valsartan, including prescription and huty-oqi-diyqenh medicines, vitamins, and herbal products. Not all [...] to ensure that the information provided by Newzstand. ('Multum') is accurate, up-to-date, and complete, but no guarantee is made to that effect. Drug information contained herein may be time sensitive. Interconnect Media Network Systemsum information has been compiled for use by healthcare practitioners and consumers in the [place] and therefore Interconnect Media Network Systemsum does not warrant that uses outside of the [place] are appropriate, unless specifically indicated otherwise. Knowledge Adventure's drug information does not endorse drugs, diagnose patients or recommend therapy. Knowledge Adventure's drug information is an informational resource designed [...] or appropriate for any given patient. [facility] does not assume any responsibility for any aspect of healthcare administered with the aid of information [facility] provides. The information contained herein is not intended to cover all possible uses, directions, precautions, warnings, drug interactions, allergic reactions, or adverse effects. If you have questions about the drugs you are taking, check with your doctor, nurse or pharmacist. Copyright 9363-5240 [facility] MeTallyfy. Version: 16.05. Revision Date: 09/08/2016. hydralazine (bob [...] may report side effects to FDA at 3-591-ZIB-0336. What other drugs will affect hydralazine? Tell your doctor about all your current medicines and any you start or stop using, especially: ? diazoxide (an injectable blood pressure medication); or ?? an MAO inhibitor--isocarboxazid, linezolid, methylene blue injection, phenelzine, rasagiline, selegiline, tranylcypromine, and others. This list is not complete. Other drugs may interact with hydralazine, including prescription and fygw-jvj-qyyvoru medicines, vitamins, and herbal products. Not all [...] to ensure that the information provided by Newzstand. ('Multum') is accurate, up-to-date, and complete, but no guarantee is made to that effect. Drug information contained herein may be time sensitive. Knowledge Adventure information has been compiled for use by healthcare practitioners and consumers in the [place] and therefore Knowledge Adventure does not warrant that uses outside of the [place] are appropriate, unless specifically indicated otherwise. Knowledge Adventure's drug information does not endorse drugs, diagnose patients or recommend therapy. Mapplass drug information is an informational resource designed [...] effective or appropriate for any given patient. [employer] does not assume any responsibility for any aspect of healthcare administered with the aid of information Knowledge Adventure provides. The information contained herein is not intended to cover all possible uses, directions, precautions, warnings, drug interactions, allergic reactions, or adverse effects. If you have questions about the drugs you are taking, check with your doctor, nurse or pharmacist. Copyright 3872-5601 Newzstand. Version: 5.01. Revision Date: 10/26/2017. amlodipine (am [...] may report side effects to FDA at 8-470-MPK-5581. What other drugs will affect amlodipine? Tell your doctor about all your current medicines and any you start or stop using, especially: ? nitroglycerin; ?? simvastatin (Zocor, Simcor, Vytorin); or ?? any other heart or blood pressure medications. This list is not complete. Other drugs may interact with amlodipine, including prescription and qyxu-acd-jpejceo medicines, vitamins, and herbal products. Not all [...] to ensure that the information provided by Newzstand. ('Multum') is accurate, up-to-date, and complete, but no guarantee is made to that effect. Drug information contained herein may be time sensitive. Knowledge Adventure information has been compiled for use by healthcare practitioners and consumers in the [place] and therefore Knowledge Adventure does not warrant that uses outside of the [place] are appropriate, unless specifically indicated otherwise. Mapplass drug information does not endorse drugs, diagnose patients or recommend therapy. Mapplass drug information is an informational resource designed [...] effective or appropriate for any given patient. [employer] does not assume any responsibility for any aspect of healthcare administered with the aid of information Knowledge Adventure provides. The information contained herein is not intended to cover all possible uses, directions, precautions, warnings, drug interactions, allergic reactions, or adverse effects. If you have questions about the drugs you are taking, check with your doctor, nurse or pharmacist. Copyright 7390-4321 Newzstand. Version: 14.. Revision Date: 01/24/2017. clopidogrel (kloe [...] may report side effects to FDA at 5-098-OFA-8170. What other drugs will affect clopidogrel? Certain other medicines may increase your risk of bleeding, including aspirin. Avoid taking aspirin unless your doctor tells you to. Tell your doctor about all your other medicines, especially: ? any other medicines to treat or prevent blood clots; ?? a stomach acid environmental engineering intern such as omeprazole, Nexium, or Prilosec; ?? an antidepressant; ?? an opioid medication; ?? a blood thinner--warfarin, Coumadin, Jantoven; or ?? NSAIDs (nonsteroidal anti-inflammatory drugs)--ibuprofen (Advil, Motrin), naproxen (Aleve), celecoxib, diclofenac, indomethacin, meloxicam, and others. This list is not complete. Other drugs may affect clopidogrel, including prescription and wcsz-pfp-gvhwxcd medicines, vitamins, and herbal products. Not all [...] to ensure that the information provided by Newzstand. ('Multum') is accurate, up-to-date, and complete, but no guarantee is made to that effect. Drug information contained herein may be time sensitive. Knowledge Adventure information has been compiled for use by healthcare practitioners and consumers in the [place] and therefore Knowledge Adventure does not warrant that uses outside of the [place] are appropriate, unless specifically indicated otherwise. Knowledge Adventure's drug information does not endorse drugs, diagnose patients or recommend therapy. Mapplass drug information is an informational resource designed [...] effective or appropriate for any given patient. Knowledge Adventure does not assume any responsibility for any aspect of healthcare administered with the aid of information Knowledge Adventure provides. The information contained herein is not intended to cover all possible uses, directions, precautions, warnings, drug interactions, allergic reactions, or adverse effects. If you have questions about the drugs you are taking, check with your doctor, nurse or pharmacist. Copyright 7396-6947 Newzstand. Version: 15.01. Revision Date: 08/07/2018. ranolazine (ra [...] following drugs: ? clarithromycin; ?? nefazodone; ?? [place]'s wort; ?? antifungal medicine--itraconazole, ketoconazole; ?? HIV [...] may report side effects to FDA at 9-474-WOT-2107. What other drugs will affect ranolazine? Many [...] interact with ranolazine. This includes prescription and dsgg-tfh-eybhzux medicines, vitamins, and herbal products. Give a [...] to ensure that the information provided by Newzstand. ('Multum') is accurate, up-to-date, and complete, but no guarantee is made to that effect. Drug information contained herein may be time sensitive. Knowledge Adventure information has been compiled for use by healthcare practitioners and consumers in the [place] and therefore Knowledge Adventure does not warrant that uses outside of the [place] are appropriate, unless specifically indicated otherwise. Knowledge Adventure's drug information does not endorse drugs, diagnose patients or recommend therapy. Mapplass drug information is an informational resource designed [...] effective or appropriate for any given patient. Knowledge Adventure does not assume any responsibility for any aspect of healthcare administered with the aid of information Knowledge Adventure provides. The information contained herein is not intended to cover all possible uses, directions, precautions, warnings, drug interactions, allergic reactions, or adverse effects. If you have questions about the drugs you are taking, check with your doctor, nurse or pharmacist. Copyright 6727-7331 Newzstand. Version: 11.. Revision Date: 12/04/2015. CIGARETTE SMOKING: The facts are clear, cigarette smoking will shorten your life. Smoking can cause many illnesses along the way. As a healthcare provider, we recommend that you stop smoking. Assistance with quitting is available by contacting 0-470-JUPR-NOW. This is a free resource providing counseling, [...] Be sure to sign up for the OneRoomRate.com patient portal, which gives you 09/05 access to your medical information ??? including these discharge instructions ??? using your computer, smartphone, or tablet. Just go to EyeSee360 to get started. Questions? Call . [facility] would like to thank you for allowing us to assist you with your healthcare needs. MICHELE Skaggs JUDY D, (or membership sales representative) have received the above patient education materials/instructions and have verbalized understanding: Patient Signature _ Date/Time Patient Interface Control Officer Signature (if needed) Date/Time Clinician/Hospital Interface Control Officer Signature (if needed) Date/Time Electronically signed by [employer], [facility] Conversion Bathhouse Keeper Cerner at 02/04/2023 1:58 PM CDT documented in this encounter Plan of Treatment Not on file documented as of this encounter Visit Diagnoses Not on filedocumented in this encounter Care Teams Refinery Operator Helper Cracking Unit Relationship Specialty Start Date End Date Jay Howell MD [address] [place] [phone] PCP - General Emergency Medicine 11/12/23 documented as of this encounter
--- OUTSIDE RECORDS SUMMARY | 2025-08-16 09:15 | XMS_ITS | Clinical Summary ---
Author Organization [employer] [facility] Address [address] [place] [address] Care Team Providers Care General Farm Hand Name Role Phone Jay Howell MD Primary Care Provider [phone] Allergies Active Allergy Reactions Criticality Noted Date Comments Morphine And Codeine Other (See Comments),Unknown - Low Severity,Unknown (See Comments) Low 2014 Listed per [facility] MAR. Nitrofurantoin Unknown - Low Severity [...] 03/23/2024 History of pulmonary embolus (PE) 03/14/2024 assisted current use of anticoagulant Fatigue 03/14/2024 Atopic [...] protocol. Patient was sent to [facility] radiology department for CT scan today. - [...] new referral to a cardiovascular surgeon at [facility]. She reports she has seen Dr. Mickey Alcantara in the past. Coronary artery disease invo lving coronary bypass graft of red cliff heart without angina pectoris 04/28/2023 Assessment & Plan (09/30/2023 4:12 PM EST): She is on Statin, BB,CCB, ARB, ASA, Ranexa, and Warfarin. Continue current medication. Assessment & Plan (05/02/2023 5:03 PM EDT): She has a known history of coronary artery disease. She has denied any chest pain. Her last heart catheterization was November 25, 2022 at [facility] in [place] showing: -last [facility] 11/25/2022- A. 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
--- OUTSIDE RECORDS SUMMARY | 2025-08-16 09:15 | XMS_ITS | Encounter Summary ---
Author Organization [employer] ([place], [place], [place], [place]) Address [address] [place] [address] Care Team Providers Care Flag Decorator Name Role Phone Jay Howell MD Primary Care Provider [phone] Encounter Details Date Type Department Care Team (Late st Contact Info) Description 02/13/2021 Transcribed Document [facility] [place] Family Medicine [address] [place] [address] ProviderJessie MD [address] [place], [place] [id number] Social History Tobacco Use Types Packs/Day Years Used Date Smoking Tobacco: Never Assessed Comments Unknown Sex and Gender Information Value Date Recorded Sex Assigned at Not on file Legal Sex Female 7:30 PM CDT Gender Identity Not on file Sexual Orientation Not on file documented as of this encounter Miscellaneous Notes * Cerner Conversion Note - Jessie ProviderMD - 02/13/2021 11:43 AM CDT [facility] Endo PACU Summary Primary Physician: FABY GRIMM MD Finalized Date/Time: 02/13/21 12:32:03 Pt. Name: SKYLER MONTOYAO.B./Sex: 1940 Female Med Rec #: [id number] Physician: FABY GRIMM MD Financial #: [id number] Pt. Type: O Room/Bed: END/ Admit/Disch: 02/13/21 09:44:00 - Institution: [facility] Endo PACU Case Times Entry 1 In PACU I 02/13/21 12:07:00 Ready for PACU 02/13/21 12:31:00 Discharge Discharge from PACU 02/13/21 12:31:00 I Last Modified By: Roselia Urbano, Rn 02/13/21 12:32:01 Finalized By: Roselia Urbano, Rn Document Signatures Signed By: Roselia Urbano Rn 02/13/21 12:32 Electronically signed by [facility] Conversion Director [employer] Cerner at 02/04/2023 2:17 PM CDT documented in this encounter Plan of Treatment Not on file documented as of this encounter Visit Diagnoses Not on filedocumented in this encounter Care Teams Flag Decorator Relationship Specialty Start Date End Date Jay Howell MD [address] [place] [phone] PCP - General Emergency Medicine 11/12/23 documented as of this encounter
--- OUTSIDE RECORDS SUMMARY | 2025-08-16 09:15 | XMS_ITS | Encounter Summary ---
Author Organization [employer] ([place], [place], [place], [place]) Address [address] [place] [address] Care Team Providers Care Cheesemaking Laborer Name Role Phone Jay Howell MD Primary Care Provider [phone] Encounter Details Date Type Department Care Team (Late st Contact Info) Description 12/21/2018 Transcribed Document [facility] [place] [address] [place] [address] ProviderJessie MD [address] [place] [address] Social History Tobacco Use Types Packs/Day Years Used Date Smoking Tobacco: Never Assessed Comments Unknown Sex and Gender Information Value Date Recorded Sex Assigned at Not on file Legal Sex Female 7:30 PM CDT Gender Identity Not on file Sexual Orientation Not on file documented as of this encounter Miscellaneous Notes * Cerner Conversion Note - Jessie Yuen MD - 12/21/2018 10:31 AM LOSS PREVENTION ANALYST Discharge Instructions Entered On: 12/21/2018 10:31 EST [...] now and restart on 12-24-18 AUSTEN WEAVER, [facility] - 12/21/2018 10:33 EST Electronically signed by [facility] Conversion Business Services Sales Representative Cerner at 02/04/2023 1:57 PM CDT documented in this encounter Plan of Treatment Not on file documented as of this encounter Visit Diagnoses Not on filedocumented in this encounter Care Teams Cheesemaking Laborer Relationship Specialty Start Date End Date Jay Howell MD [address] [place] [phone] PCP - General Emergency Medicine 11/12/23 documented as of this encounter
--- OUTSIDE RECORDS SUMMARY | 2025-08-16 09:15 | XMS_ITS | Encounter Summary ---
Author Organization [employer] ([place], [place], [place], [place]) Address [address] [address] Care Team Providers Care Mold Press Operator Name Role Phone Jay Howell MD Primary Care Provider [phone] Encounter Details Date Type Department Care Team (Late st Contact Info) Description 02/13/2021 Transcribed Document [facility] [place] [address] [place] [address] ProviderJessie MD [address] [place], [place] [phone] Social History Tobacco Use Types Packs/Day Years [...] counseling. ??? Working with a diet and public health specialist (dietitian) to help create a food [...] for some people. General instructions ??? Take rtef-rah-sctxxxl and prescription medicines and supplements only as [...] provider. Document Revised: 09/26/2018 Document Reviewed: 09/26/2018 MediConecta.com Patient Education ? 2020 DoesThatMakeSense.com. Segura's Esophagus Segura's esophagus occurs when the [...] Tomatoes and foods made with tomatoes. ? [place] or spicy foods. ? Chocolate and peppermint. ??? Do not drink alcohol. General instructions ??? Take dytd-mqg-npuntcs and prescription medicines only as told by [...] provider. Document Revised: 01/29/2019 Document Reviewed: 01/29/2019 MediConecta.com Patient Education ? 2020 DoesThatMakeSense.com. ESOPHAGOGASTRODUODENOSCOPY Care After Read the instructions outlined [...] eating solid foods. General instructions ??? Take foii-fza-umlnwzd and prescription medicines only as told by [...] provider. Document Revised: 01/01/2019 Document Reviewed: 01/23/2017 MediConecta.com Patient Education ? 2020 MediConecta.com Inc. Gastritis, Adult Gastritis is inflammation of [...] medicines. These include steroids, antibiotics, and some ylwk-gky-zwhbiva medicines, such as aspirin or ibuprofen. ??? [...] these instructions at home: Medicines ??? Take zkcg-yje-ekiaimb and prescription medicines only as told by [...] Reviewed: 02/20/2019 Elsevier Patient Education ? 2020 MediConecta.com Inc. Colonoscopy, Adult A colonoscopy is a [...] including vitamins, herbs, eye drops, creams, and zfes-bkb-zpbyhjk medicines. ??? Any problems you or family [...] tells you to take them. ??? Taking qafr-qsd-agwwyti medicines, vitamins, herbs, and supplements. General instructions [...] provider. Document Revised: 04/25/2020 Document Reviewed: 04/25/2020 MediConecta.com Patient Education ? 2020 MediConecta.com Inc. Colon Polyps Polyps are tissue growths [...] provider. Document Revised: 01/18/2019 Document Reviewed: 01/18/2019 MediConecta.com Patient Education ? 2020 DoesThatMakeSense.com. documented in this encounter Plan of Treatment Not on file documented as of this encounter Visit Diagnoses Not on filedocumented in this encounter Care Teams Mold Press Operator Relationship Specialty Start Date End Date Jay Howell MD [address] [place] [phone] PCP - General Emergency Medicine 11/12/23 documented as of this encounter
--- OUTSIDE RECORDS SUMMARY | 2025-08-16 09:15 | XMS_ITS | Encounter Summary ---
Author Organization [employer] ([place], [place], [place], [place]) Address [address] [place] [address] Care Team Providers Care Line Fixer Name Role Phone Jay Howell MD Primary Care Provider [phone] Encounter Details Date Type Department Care Team (Late st Contact Info) Description 02/13/2021 Transcribed Document [facility] [place] Family Medicine [address] [place] [address] ProviderJessie MD [address] [place], [place] [id number] Social History Tobacco Use Types Packs/Day Years [...] Yuen MD - 02/13/2021 12:19 PM CDT [facility] [place] [address] SKYLER MONTOYA :1940 Visit Time:02/13/2021 What to do next Your Diagnosis Personal history of colonic polyps Unspecified abdominal pain Follow-Up Appointments Follow Up with FABY GRIMM MD When Only if needed Where: [address] [facility] [address] [place] [address]- Medications What How Much When Instructions Next [...] counseling. ??? Working with a diet and sports nutritionist (dietitian) to help create a food plan [...] for some people. General instructions ??? Take gcjv-rle-poxsgbz and prescription medicines and supplements only as [...] provider. Document Revised: 09/26/2018 Document Reviewed: 09/26/2018 [employer] Patient Education ?? 2020 [employer] Segura's Esophagus Segura's esophagus occurs when [...] Tomatoes and foods made with tomatoes. ? [place] or spicy foods. ? Chocolate and peppermint. ??? Do not drink alcohol. General instructions ??? Take jckb-sgd-ewspzxf and prescription medicines only as told by [...] provider. Document Revised: 01/29/2019 Document Reviewed: 01/29/2019 [employer] Patient Education ?? 2020 [employer] ESOPHAGOGASTRODUODENOSCOPY Care After Read the instructions [...] eating solid foods. General instructions ??? Take txhe-aev-nnvztmk and prescription medicines only as told by [...] provider. Document Revised: 01/01/2019 Document Reviewed: 01/23/2017 [employer] Patient Education ?? 2020 [employer]. Gastritis, Adult Gastritis is inflammation of the [...] medicines. These include steroids, antibiotics, and some moyr-vmr-hhbyfie medicines, such as aspirin or ibuprofen. ??? [...] these instructions at home: Medicines ??? Take tcwc-rjn-uyzkpcx and prescription medicines only as told by [...] Reviewed: 02/20/2019 Else[employer] Patient Education ?? 2020 [employer] Colonoscopy, Adult A colonoscopy is a [...] including vitamins, herbs, eye drops, creams, and ksld-lpb-wchoipz medicines. ??? Any problems you or family [...] tells you to take them. ??? Taking tlek-jzu-xnksdmw medicines, vitamins, herbs, and supplements. General instructions [...] provider. Document Revised: 04/25/2020 Document Reviewed: 04/25/2020 [employer] Patient Education ?? 2020 [employer] Colon Polyps Polyps are tissue growths [...] provider. Document Revised: 01/18/2019 Document Reviewed: 01/18/2019 [employer] Patient Education ?? 2020 [employer]. Emergency Awareness and Preventative Care STROKE is [...] Assistance with quitting is available by contacting 9-261-HIDB-NOW. This is a free resource providing counseling, [...] was given the opportunity to ask questions. Patient/Fashion Marketer Name: Patient/Fashion Marketer Signature: Relationship to Patient: Clinician/Hospital Fashion Marketer Signature: Date: documented in this encounter Plan of Treatment Not on file documented as of this encounter Visit Diagnoses Not on filedocumented in this encounter Care Teams Line Fixer Relationship Specialty Start Date End Date Jay Howell MD [address] [place] [phone] PCP - General Emergency Medicine 11/12/23 documented as of this encounter
--- OUTSIDE RECORDS SUMMARY | 2025-08-16 09:15 | XMS_ITS | Encounter Summary ---
Author Organization [employer] ([place], [place], [place], [place]) Address [address] [place] [address] Care Team Providers Care Emergency Spill Response Technician Name Role Phone Jay Howell MD Primary Care Provider [phone] Encounter Details Date Type Department Care Team (Late st Contact Info) Description 02/13/2021 Transcribed Document [facility] [place] Family Medicine [address] [place] [address] ProviderJessie MD [address] [place], [place] [address] Social History Tobacco Use Types Packs/Day Years Used Date Smoking Tobacco: Never Assessed Comments Unknown Sex and Gender Information Value Date Recorded Sex Assigned at Not on file Legal Sex Female 7:30 PM CDT Gender Identity Not on file Sexual Orientation Not on file documented as of this encounter Miscellaneous Notes * Cerner Conversion Note - Historical ProviderMD - 02/13/2021 11:30 AM CDT [facility] Saji PreOp Summary Primary Physician: FABY GRIMM MD Finalized Date/Time: 02/13/21 11:03:33 Pt. Name: SKYLER MONTOYAO.B./Sex: 1940 Female Med Rec #: [id number] Physician: FABY GRIMM MD Financial #: [id number] Pt. Type: O Room/Bed: END/ Admit/Disch: 02/13/21 09:44:00 - Institution: [facility] Endo PreOp Case Times Entry 1 [...] NON-EXEMPT 02/13/21 11:03 Electronically signed by Sivan [facility] Conversion Will Call Clerk Cerner at 02/04/2023 2:00 PM CDT documented in this encounter Plan of Treatment Not on file documented as of this encounter Visit Diagnoses Not on filedocumented in this encounter Care Teams Emergency Spill Response Technician Relationship Specialty Start Date End Date Jay Howell MD [address] [place] [phone] PCP - General Emergency Medicine 11/12/23 documented as of this encounter
--- OUTSIDE RECORDS SUMMARY | 2025-08-16 09:15 | XMS_ITS | Encounter Summary ---
Author Organization [employer] ([place], [place], [place], [place]) Address [address] [place] [address] Care Team Providers Care Safety Pin Assembling Machine Operator Name Role Phone Jay Howell MD Primary Care Provider [phone] Encounter Details Date Type Department Care Team (Late st Contact Info) Description 12/20/2018 Transcribed Document [facility] [place] [address] [place] [address] ProviderJessie MD [address] [place] [address] Social History Tobacco Use Types Packs/Day Years Used Date Smoking Tobacco: Never Assessed Comments Unknown Sex and Gender Information Value Date Recorded Sex Assigned at Not on file Legal Sex Female 7:30 PM CDT Gender Identity Not on file Sexual Orientation Not on file documented as of this encounter Miscellaneous Notes * Cerner Conversion Note - Historical ProviderMD - 12/20/2018 7:39 PM NETWORK ACCOUNT MANAGER Admission History, Adult Entered On: 12/20/2018 [...] Info Preferred Name : ilsa Support Person/Patient Preschool Assistant Director : Deanna Support Person/Pt Rep Name : Willard Contact Password : Marvin Support Person/Pt Rep Contact Information : [id number] Want Family/Rep/Phys Notified of Admit : No Emergency Contact #1 : na Emergency Contact #1 Phone Number : na Emergency Contact #1 Relationship : na Emergency Contact #2 : na Emergency Contact #2 Phone Number : na Emergency Contact #2 Relationship : na Primary Language : Bulgarian Preferred Communication Mode : Verbal Communication Barrier [...] Scale Risk Level : 25-45 Medium Risk [place] Fall Interventions : Adequate lighting, Assistive devices [...] Source : Stated Height Entry Format : Wake Height, Feet : 5 ft(Converted to: 152 cm, 60 Inch) Height, Inches : 3 Inch(Converted to: 0 ft 3 Inch, 7.62 cm) Clinical Height : 160.02 cm Weight Source : Standing scale Weight Entry Format : Wake Clinical Dosing Weight : 71.82 kg Weight, Pounds : 158 lb Body Surface Area (BSA) : 1.75 m2 Body Mass Index : 28 kg/m2 (HI) [place] Body Weight : 52 kg An Ocampo [...] RN - 12/20/2018 19:39 EST Spiritual/Cultural Needs Caodaism Preference : Orthodoxy Spiritual/Cultural Needs Comment : joseph after surgery or major surgery An Ocampo RN - 12/20/2018 19:39 EST Valuables and Belongings Valuables and Belongings : Clothing, Personal devices Clothing : Common streetwear Clothing Disposition : Bedside Personal Device Disposition : Bedside Personal Devices : Dentures, partial plate An Ocampo RN - 12/20/2018 19:39 EST Electronically signed by [facility] Conversion Crystallographer Cerner at 02/04/2023 2:16 PM CDT documented in this encounter Plan of Treatment Not on file documented as of this encounter Visit Diagnoses Not on filedocumented in this encounter Care Teams Safety Pin Assembling Machine Operator Relationship Specialty Start Date End Date Jay Howell MD [address] [place] [phone] PCP - General Emergency Medicine 11/12/23 documented as of this encounter
--- OUTSIDE RECORDS SUMMARY | 2025-08-16 09:15 | XMS_ITS | Encounter Summary ---
Author Organization [employer] ([place], [place], [place], [place]) Address [address] [place] [address] Care Team Providers Care Director Pharmacology Name Role Phone Jay Howell MD Primary Care Provider [phone] Encounter Details Date Type Department Care Team (Late st Contact Info) Description 12/21/2018 Transcribed Document [facility] [place] [facility] [place] [address] ProviderJessie MD [address] [place] [address] Social History Tobacco Use Types Packs/Day Years Used Date Smoking Tobacco: Never Assessed Comments Unknown Sex and Gender Information Value Date Recorded Sex Assigned at Not on file Legal Sex Female 7:30 PM CDT Gender Identity Not on file Sexual Orientation Not on file documented as of this encounter Miscellaneous Notes * Cerner Conversion Note - Historical MD Alpa - 12/21/2018 7:18 AM INFORMATION ASSOC Patient: SKYLER MONTOYA Age: 77 years Sex: [...] of motion, Normal strength. Integumentary: Warm, Dry, [place]. Neurologic: Alert, Oriented. Psychiatric: Cooperative, Appropriate mood & affect. Results Review Telemetry DEC 21 04:17 140 110 10 / H 153 3.8 22 0.70 \ DEC 21 04:17 \ 11.5 / 7.2 L 150 / 35.7 \ [facility] 12/20/18; Dr. Fredy Pacheco TECHNIQUE: A 5/6-Telugu sheath placed in the right femoral artery. Right iliac artery angiography was performed using a JR4 diagnostic catheter due to difficulty in advancing safety J-wire across the proximal right common iliac artery. Angiography revealed patent iliac artery with a kink proximally. There is no pressure gradient across the kink. The short 6-Telugu sheath was switched out for a 25 cm 6-Telugu Arrow sheath with the sheath tip into the abdominal aorta for angiography and percutaneous intervention. JL4, JR4 diagnostic catheters were used for selective angiography of the kenaitze vessels. JR4 diagnostic catheter was used for selective angiography of the bypass grafts. A 6-Telugu pigtail catheter was advanced in the left [...] 162 mg of aspirin in the labor training manager. She was given Aggrastat bolus. Patient received [...] filedocumented in this encounter Care Teams Director Pharmacology Relationship Specialty Start Date End Date Jay Howell MD [address] [place] [phone] PCP - General Emergency Medicine 11/12/23 documented as of this encounter
--- OUTSIDE RECORDS SUMMARY | 2025-08-16 09:15 | XMS_ITS | Encounter Summary ---
Author Organization [facility] Address [address] [place] [address] Care Team Providers Care Linen Clerk Name Role Phone Jay Howell MD Primary Care Provider [phone] Encounter Details Date Type Department Care Team (Late st Contact Info) Description 06/08/2012 Conversion Encounter [facility] HISTORICAL CONV [address] [place] [address] Interface, See Report Social History [...] Amado M.D. ' Kailey Ruff APRN [address] [facility], [address] [place] [address] [employer] NEW PATIENT EVALUATION SKYLER MONTOYA : 1940 DATE OF VISIT: 06/08/2012 REFERRING PHYSICIAN: Dr. Avtar Moeller PROBLEMS: 1. History of pulmonary embolus. a. Pulmonary embolus diagnosed February 2011 at [facility]. b. Details incomplete. 2. Warfarin therapy. [...] was evidently diagnosed by CT angiogram at [facility]; I do not have records from [...] to Macrodantin. SOCIAL HISTORY: She lives in [place] with her . She is accompanied today by her gksmviuq-tc-igg who is also a patient of our practice. 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 She is not working now. She does [...] dryness and this is managed by an zipper slide attacher. She has the hematuria and pain with [...] repeat her anticardiolipin antibody since this can guide changer time. If the anticardiolipin antibody is [...] about her diagnosis of pulmonary embolus at [facility] and any additional testing done at [...] available. Tana Rivera M.D.* TRUNG/rxaldarlene Doc. ID [id number] Rev. #0 cc: Avtar Moeller M.D.* Dr. Etienne De La Paz Page 4 of 4 Page 1 of 4 Authenticated and Edited by TANA RIVERA M.D. On 06/09/12 3:24:05 PM * Interface, See Report - 06/08/2012 4:16 PM EDT Zurdo Schuler M.D. ' Tana Rivera M.D. ' Rosalio Marie M.D. ' STEPHANIE Quezada M.D. ' Heath Amado M.D. ' Kailey Ruff APRN [address] [place] [address], [place] [address] [place] [address] [employer] OFFICE NOTE SKYLER MONTOYA : 1940 DATE [...] and I will try to get social work therapist to give her some help with this. Also, I will speak to Dr. De La Paz about this and I have a call into his office. Tana Rivera M.D.* TRUNG/ruperto Doc. ID [id number] Rev. #0 cc: Etienne De La Paz Jr., M.D.* Avtar Moeller M.D.* Page 2 of 2 Page 1 of 2 Authenticated by TANA RIVERA M.D. On 07/07/2012 04:36:41 PM * Interface, See Report - 06/08/2012 4:16 PM EDT Zurdo Schuler M.D. ' Tana Rivera M.D. ' Rosalio Marie M.D. ' STEPHANIE Quezada M.D. ' Heath Amado M.D. ' Kailey Ruff APRN [address] [facility], [address] [place] [id number] [employer] OFFICE NOTE SKYLER MONTOYA : 1940 DATE [...] antibodies. Tana Rivera M.D.* RME/rxalw Doc. ID [id number] Rev. #0 cc: Avtar Moeller M.D.* Page 2 of 2 Page 1 of 2 Authenticated by TANA RIVERA M.D. On 08/15/2012 09:44:06 AM * Interface, See Report - 06/08/2012 4:16 PM EDT uZrdo Schuler M.D. ' Tana Rivera M.D. ' Rosalio Marie M.D. ' STEPHANIE Quezada M.D. ' David Calvillo M.D. ' Heath Amado M.D. ' Kailey Ruff APRN [address] [place] [address] [place] [address] [employer] OFFICE NOTE SKYLER MONTOYA : 1940 DATE [...] develop. Tana Rivera M.D.* RMEmiliano/rxalw Doc. ID [id number] Rev. #0 cc: Avtar Moeller M.D.* Jorje Watters M.D.* SKYLER MONTOYA : 1940 DATE OF VISIT: 04/26/2013 Page 2 of 2 Page 1 of 2 DOCUMENT CODE :[facility]: PHYSICIAN CODE :[id number]: Authenticated by TANA RIVERA M.D. On 05/04/2013 10:54:04 AM * Interface, See Report - 06/08/2012 4:16 PM EDT Zurdo Schuler M.D. ' Tana Rivera M.D. ' Rosalio Marie M.D. ' STEPHANIE Quezada M.D. ' David Calvillo M.D. ' Heath Amado M.D. ' Kailey Ruff APRN [facility], [place] [address] [place] [address] [facility] OFF[facility] NOTE SKYLER MONTOYA : 1940 DATE [...] develop. Tana Rivera M.D.* RMEmiliano/rxalw Doc. ID [id number] Rev. #0 cc: Avtar Moeller M.D.* Etienne De La Paz Jr., M.D.* Jorje Watters M.D.* SKYLER MONTOYA : 1940 DATE OF VISIT: 07/12/2013 Page 2 of 2 Page 1 of 2 DOCUMENT CODE :[facility]: PHYSICIAN CODE :[id number]: Authenticated by TANA RIVERA M.D. On 07/16/2013 01:57:36 PM documented in this encounter Plan of Treatment Not on file documented as of this encounter Visit Diagnoses Not on filedocumented in this encounter Care Teams Linen Clerk Relationship Specialty Start Date End Date Jay Howell MD [address] [place] [address] PCP - General Emergency Medicine 04/28/23 documented as of this encounter
--- OUTSIDE RECORDS SUMMARY | 2025-08-16 09:15 | XMS_ITS | Encounter Summary ---
Author Organization [employer] ([place], [place], [place], [place]) Address [address] [place] [address] Care Team Providers Care Ux Visual Designer Name Role Phone Jay Howell MD Primary Care Provider [phone] Encounter Details Date Type Department Care Team (Late st Contact Info) Description 10/13/2020 Transcribed Document [facility] [place] Family Medicine [address] [place] [address] ProviderJessie MD [address] [place] [address] Social History Tobacco Use Types Packs/Day Years Used Date Smoking Tobacco: Never Assessed Comments Unknown Sex and Gender Information Value Date Recorded Sex Assigned at Not on file Legal Sex Female 7:30 PM CDT Gender Identity Not on file Sexual Orientation Not on file documented as of this encounter Miscellaneous Notes * Cerner Conversion Note - Historical MD Alpa - 10/13/2020 6:59 PM INSTALLER INTERIOR ASSEMBLIES Patient: SKYLER MONTOYA Age: 79 Years Sex: [...] results RTC prn Electronically signed by Sivan [facility] Conversion Automotive Glass Mechanic Cerner at 02/04/2023 2:05 PM CDT documented in this encounter Plan of Treatment Not on file documented as of this encounter Visit Diagnoses Not on filedocumented in this encounter Care Teams Ux Visual Designer Relationship Specialty Start Date End Date Jay Howell MD [address] [place] [phone] PCP - General Emergency Medicine 11/12/23 documented as of this encounter
--- OUTSIDE RECORDS SUMMARY | 2025-08-16 09:15 | XMS_ITS | Encounter Summary ---
Author Organization [employer] ([place], [place], [place], [place]) Address [address] [place] [address] Care Team Providers Care Website/Blog Editor Name Role Phone Jay Howell MD Primary Care Provider [phone] Encounter Details Date Type Department Care Team (Late st Contact Info) Description 12/20/2018 Transcribed Document [facility] [place] Medicine [address] [place] [address] ProviderJessie MD [address] [place] [address] Social History Tobacco Use Types Packs/Day Years Used Date Smoking Tobacco: Never Assessed Comments Unknown Sex and Gender Information Value Date Recorded Sex Assigned at Not on file Legal Sex Female 7:30 PM CDT Gender Identity Not on file Sexual Orientation Not on file documented as of this encounter Miscellaneous Notes * Cerner Conversion Note - Historical ProviderMD - 12/20/2018 3:20 PM SPLUNK CONSULTANT DATE OF PROCEDURE: LEFT HEART CATHETERIZATION, GRAFT ANGIOGRAPHY, ILIAC ARTERY ANGIOGRAPHY, PERCUTANEOUS INTERVENTION REPORT INDICATION: Lifestyle limiting exertional angina. REFERRING PHYSICIAN: Dr. Adry Dumas and Dr. Avtar Moeller. PROCEDURE: Standard left heart catheterization. TECHNIQUE: A 5/6-Yakut sheath placed in the right femoral artery. Right iliac artery angiography was performed using a JR4 diagnostic catheter due to difficulty in advancing safety J-wire across the proximal right common iliac artery. Angiography revealed patent iliac artery with a kink proximally. There is no pressure gradient across the kink. The short 6-Yakut sheath was switched out for a 25 cm 6-Yakut Arrow sheath with the sheath tip into the abdominal aorta for angiography and percutaneous intervention. JL4, JR4 diagnostic catheters were used for selective angiography of the muscogee vessels. JR4 diagnostic catheter was used for selective angiography of the bypass grafts. A 6-Yakut pigtail catheter was advanced in the left [...] additional 162 mg of aspirin in the floating labor gang supervisor. She was given Aggrastat bolus. Patient received intracoronary nitroglycerin to optimize coronary vessel sizing. Wood Pacheco M.D. Dict: 12/20/2018 15:20:17 Trans: 12/20/2018 18:55:03 CC1: Wood Pacheco M.D. CC2: Dr. Adry Dumas CC3: Dr. Avtar Moeller documented in this encounter Plan of Treatment Not on file documented as of this encounter Visit Diagnoses Not on filedocumented in this encounter Care Teams Website/Blog Editor Relationship Specialty Start Date End Date Jay Howell MD [address] [place] [phone] PCP - General Emergency Medicine 11/12/23 documented as of this encounter
--- OUTSIDE RECORDS SUMMARY | 2025-08-16 09:15 | XMS_ITS | Encounter Summary ---
Author Organization [employer] ([place], [place], [place], [place]) Address [address] [place] [address] Care Team Providers Care Slubber Runner Name Role Phone Jay Howell MD Primary Care Provider [phone] Encounter Details Date Type Department Care Team (Late st Contact Info) Description 12/20/2018 Transcribed Document [facility] [place] Family Medicine [address] [place] [address] ProviderJessie MD [address] [place] [address] Social History Tobacco Use Types Packs/Day Years Used Date Smoking Tobacco: Never Assessed Comments Unknown Sex and Gender Information Value Date Recorded Sex Assigned at Not on file Legal Sex Female 7:30 PM CDT Gender Identity Not on file Sexual Orientation Not on file documented as of this encounter Miscellaneous Notes * Cerner Conversion Note - Historical ProviderMD - 12/20/2018 11:57 AM CARPET WINDER Pre Procedure Adult Entered On: 12/20/2018 12:01 EST Performed On: 12/20/2018 11:57 EST by VANCE BELTRAN RN Height and Weight, Clinical Dosing Height Source : Stated Height Entry Format : Douglas Height, Feet : 5 ft(Converted to: 152 cm, 60 Inch) Height, Inches : 3 Inch(Converted to: 0 ft 3 Inch, 7.62 cm) Clinical Height : 160.02 cm Weight Source : Standing scale Weight Entry Format : Douglas Clinical Dosing Weight : 71.82 kg Weight, Pounds : 158 lb Body Surface Area (BSA) : 1.75 m2 Body Mass Index : 28 kg/m2 (HI) [place] Body Weight : 52 kg VANCE BELTRAN [...] Info Preferred Name : ilsa Support Person/Patient Pomology Teacher : Deanna Support Person/Pt Rep Name : Willard Contact Password : Marvin Support Person/Pt Rep Contact Information : [phone] Want Family/Rep/Phys Notified of Admit : No Emergency Contact #1 : na Emergency Contact #1 Phone Number : yolis Emergency Contact #1 Relationship : na Emergency Contact #2 : na Emergency Contact #2 Phone Number : [place] Emergency Contact #2 Relationship : na Primary Language : Azeri Preferred Communication Mode : Verbal Communication Barrier [...] Scale Risk Level : 0-24 Low Risk [place] Fall Interventions : Bed in low position, Call device within reach, Non-slip footwear, Wheels locked VANCE BELTRAN RN - 12/20/2018 11:57 EST Valuables and Belongings Valuables and Belongings : Clothing Clothing : Common streetwear Clothing Disposition : Bedside VANCE BELTRAN RN - 12/20/2018 11:57 EST Electronically signed by Sivan [facility] Conversion Communication Signals Intelligence Cerner at 02/04/2023 2:07 PM CDT documented in this encounter Plan of Treatment Not on file documented as of this encounter Visit Diagnoses Not on filedocumented in this encounter Care Teams Slubber Runner Relationship Specialty Start Date End Date Jay Howell MD [address] [place] [phone] PCP - General Emergency Medicine 11/12/23 documented as of this encounter
--- OUTSIDE RECORDS SUMMARY | 2025-08-16 09:16 | XMS_ITS | Encounter Summary ---
Author Organization [employer] ([place], [place], [place], [place]) Address [address] [place] [address] Care Team Providers Care Travel Ticketing Reviewer Name Role Phone Jay Howell MD Primary Care Provider [phone] Encounter Details Date Type Department Care Team (Late st Contact Info) Description 08/29/2020 Transcribed Document [facility] [place] [address] [place] [address] ProviderJessie MD [address] [place] [address] Social History Tobacco Use Types Packs/Day Years Used Date Smoking Tobacco: Never Assessed Comments Unknown Sex and Gender Information Value Date Recorded Sex Assigned at Not on file Legal Sex Female 7:30 PM CDT Gender Identity Not on file Sexual Orientation Not on file documented as of this encounter Miscellaneous Notes * Cerner Conversion Note - Historical ProviderMD - 08/29/2020 1:02 PM SPEECH SCIENTIST Patient: SKYLER MONTOYA Age: 79 years Sex: [...] level of muscle per surgery *Operation RIGHT DERRICK OPERATOR access - ultrasound guided Aortogram with LEFT lower extremity run-off LEFT PT angioplasty (2.5-8m461jx Nanocross) LEFT peroneal angioplasty (2.5-5b210zf Nanocross) RIGHT DERRICK OPERATOR closure (Angioseal) LEFT leg debridement 08/29/20 doing [...] Level 0.70 mg/dL 08/29/2020 02:04 Bun/Creatinine 22.9 [place] 08/29/2020 02:04 eGFR >60 mL/min/1.73m2 08/29/2020 02:04 eGFR NonAfrican >60 mL/min/1.73m2 08/29/2020 02:04 Bun/Creatinine 22.9 [place] 08/29/2020 07:33 Sodium Level 138 mmol/L 08/29/2020 02:04 Potassium Level 3.3 mmol/L LOW 08/29/2020 02:04 Chloride Level 108 mmol/L 08/29/2020 02:04 Carbon Dioxide Level 23 mmol/L 08/29/2020 02:04 Anion Gap 10 08/29/2020 02:04 Blood Urea Nitrogen 16 mg/dL 08/29/2020 02:04 Glucose Level 108 mg/dL PA 08/29/2020 02:04 Calcium Level 9.1 mg/dL 08/29/2020 02:04 MICRO: ACC: [id number] ORDER: Culture Wound and Stain DATE: 08/26/2020 15:23 SOURCE: Surgical Swab SITE: Leg Lower L Reports Final 08/29/2020 08:29 No growth Pre 08/27/2020 07:14 No growth GS 08/26/2020 18:13 Few White Blood Cells No organisms seen. == ACC: [id number] ORDER: Culture Wound and Stain DATE: 08/25/2020 05:00 SOURCE: Wound SITE: Leg Lower L Reports Final 08/28/2020 08:57 No growth Pre 08/26/2020 06:23 No growth GS 08/25/2020 07:26 No organisms seen. Few White Blood Cells Rare epithelial cells == ACC: [id number] ORDER: Culture AFB and Stain DATE: 08/26/2020 13:56 SOURCE: Surgical Swab SITE: Leg Lower L Reports AFS 08/27/2020 13:07 No Acid Fast Bacilli seen == ACC: [id number] ORDER: Culture Anaerobic DATE: 08/26/2020 13:56 SOURCE: Surgical Swab SITE: Leg Lower L Reports Pre 08/28/2020 07:01 No Anaerobic growth Pre 08/27/2020 07:47 Culture in progress == ACC: [id number] ORDER: Culture Fungus DATE: 08/26/2020 13:56 SOURCE: Surgical Swab SITE: Leg Lower L Reports SINDI 08/26/2020 16:09 No Fungal elements seen == ACC: [id number] ORDER: Culture Blood DATE: 08/25/2020 05:01 SOURCE: Blood SITE: Reports Pre 08/29/2020 06:01 No growth at 4 days. Pre 08/28/2020 06:01 No growth at 3 days. Pre 08/27/2020 06:01 No growth at 2 days. Pre 08/26/2020 06:01 No growth at 1 day. Pre 08/25/2020 23:02 Culture less than 24 Hrs old == ACC: [id number] ORDER: Culture Blood DATE: 08/25/2020 05:01 SOURCE: Blood SITE: Reports Pre 08/29/2020 06:02 No growth at 4 days. Pre 08/28/2020 06:01 No growth at 3 days. Pre 08/27/2020 06:01 No growth at 2 days. Pre 08/26/2020 06:01 No growth at 1 day. Pre 08/25/2020 23:02 Culture less than 24 Hrs old == Radiology Results (Last 48 hours) [id number] -- 08/25/2020 05:53 CT Abdomen WO W [...] closely after discharge Electronically signed by Sivan, [facility] Conversion Coil Cleaner Cerner at 02/04/2023 1:55 PM CDT documented in this encounter Plan of Treatment Not on file documented as of this encounter Visit Diagnoses Not on filedocumented in this encounter Care Teams Travel Ticketing Reviewer Relationship Specialty Start Date End Date Jay Howell MD [address] [place] [phone] PCP - General Emergency Medicine 11/12/23 documented as of this encounter
--- OUTSIDE RECORDS SUMMARY | 2025-08-16 09:16 | XMS_ITS | Encounter Summary ---
Author Organization [employer] ([place], [place], [place], [place]) Address [address] [place] [address] Care Team Providers Care Teradata Solution Architect Name Role Phone Jay Howell MD Primary Care Provider [phone] Encounter Details Date Type Department Care Team (Late st Contact Info) Description 08/29/2020 Transcribed Document [facility] [place] Family Medicine [address] [place] [address] ProviderJessie MD [address] [place] [address] Social History Tobacco Use Types Packs/Day Years Used Date Smoking Tobacco: Never Assessed Comments Unknown Sex and Gender Information Value Date Recorded Sex Assigned at Not on file Legal Sex Female 7:30 PM CDT Gender Identity Not on file Sexual Orientation Not on file documented as of this encounter Miscellaneous Notes * Cerner Conversion Note - Jessie Yuen MD - 08/29/2020 8:24 AM MORTGAGE CONSULTANT Patient: SKYLER MONTOYA Age: 79 years Sex: Female : 1940 Associated Diagnoses: None Author: SLICK BRADLEY, [facility] Ms. Montoya is 79 yo female admitted [...] on filedocumented in this encounter Care Teams Teradata Solution Architect Relationship Specialty Start Date End Date Jay Howell MD [address] [place] [phone] PCP - General Emergency Medicine 11/12/23 documented as of this encounter
--- OUTSIDE RECORDS SUMMARY | 2025-08-16 09:16 | XMS_ITS | Encounter Summary ---
Author Organization [employer] ([place], [place], [place], [place]) Address [address] [place] [address] Care Team Providers Care Cash Van Salesperson Name Role Phone Jay Howell MD Primary Care Provider [phone] Encounter Details Date Type Department Care Team (Late st Contact Info) Description 08/29/2020 Transcribed Document [facility] [place] Family Medicine [facility] [place] [address] ProviderJessie MD [address] [place] [address] Social History Tobacco Use Types Packs/Day Years Used Date Smoking Tobacco: Never Assessed Comments Unknown Sex and Gender Information Value Date Recorded Sex Assigned at Not on file Legal Sex Female 7:30 PM CDT Gender Identity Not on file Sexual Orientation Not on file documented as of this encounter Miscellaneous Notes * Cerner Conversion Note - Historical ProviderMD - 08/29/2020 1:32 PM DIAL POLISHER Discharge Summary, PT Entered On: 08/29/2020 13:33 [...] - 08/29/2020 13:32 EST Electronically signed by [facility] Conversion Electric Furnace Operator Cerner at 02/04/2023 2:09 PM CDT documented in this encounter Plan of Treatment Not on file documented as of this encounter Visit Diagnoses Not on filedocumented in this encounter Care Teams Cash Van Salesperson Relationship Specialty Start Date End Date Jay Howell MD [address] [place] [phone] PCP - General Emergency Medicine 11/12/23 documented as of this encounter
--- OUTSIDE RECORDS SUMMARY | 2025-08-16 09:16 | XMS_ITS | Encounter Summary ---
Author Organization [employer] ([place], [place], [place], [place]) Address [address] [place] [address] Care Team Providers Care Medicaid Eligibility Specialist Name Role Phone Jay oHwell MD Primary Care Provider [phone] Encounter Details Date Type Department Care Team (Late st Contact Info) Description 12/20/2018 Transcribed Document [facility] [place] Family Medicine [address] [place] [address] ProviderJessie MD [address] [place] [address] Social History Tobacco Use Types Packs/Day Years Used Date Smoking Tobacco: Never Assessed Comments Unknown Sex and Gender Information Value Date Recorded Sex Assigned at Not on file Legal Sex Female 7:30 PM CDT Gender Identity Not on file Sexual Orientation Not on file documented as of this encounter Miscellaneous Notes * Cerner Conversion Note - Historical ProviderMD - 12/20/2018 9:55 PM APPLICATIONS ENGINEER Pain Assessment Entered On: 12/21/2018 4:53 EST [...] on filedocumented in this encounter Care Teams Medicaid Eligibility Specialist Relationship Specialty Start Date End Date Jay Howell MD [address] [place] [phone] PCP - General Emergency Medicine 11/12/23 documented as of this encounter
--- OUTSIDE RECORDS SUMMARY | 2025-08-16 09:16 | XMS_ITS | Encounter Summary ---
Author Organization [employer] ([place], [place], [place], [place]) Address [address] [place] [address] Care Team Providers Care Playback Operator Name Role Phone Jay Howell MD Primary Care Provider [phone] Encounter Details Date Type Department Care Team (Late st Contact Info) Description 08/29/2020 Transcribed Document [facility] [place] Family Medicine Counts include [address] beds [place] [facility] [place] [address] ProviderJessie MD [address] [place] [address] Social History Tobacco Use Types Packs/Day Years Used Date Smoking Tobacco: Never Assessed Comments Unknown Sex and Gender Information Value Date Recorded Sex Assigned at Not on file Legal Sex Female 7:30 PM CDT Gender Identity Not on file Sexual Orientation Not on file documented as of this encounter Miscellaneous Notes * Cerner Conversion Note - Jessie Yuen MD - 08/29/2020 2:44 PM ELECTRONICS RECYCLER Final Discharge Planning Entered On: 08/29/2020 14:44 EST Performed On: 08/29/2020 14:44 EST by KAVITA PELLETIER RN-Cras Final Discharge Planning Discharge Arrangements : Patient Post-Acute Information Patient Name: SKYLER MONTOYA Gender: Female : [birth year] Age: 79 Years No Post-Acute Placement(s) Listed No Post-Acute Service(s) Listed No Curaspan Referral(s) Listed Patient Offered Choice/Affiliations Explained : Yes Important Medicare Message Reviewed With : Patient Important Medicare Message Reviewed D/T : 08/29/2020 9:00 EST KAVITA PELLETIER RN-Cras - 08/29/2020 14:44 EST Electronically signed by Interface, [facility] Conversion Manager Progressive Care Cerner at 02/04/2023 1:55 PM CDT documented in this encounter Plan of Treatment Not on file documented as of this encounter Visit Diagnoses Not on filedocumented in this encounter Care Teams Playback Operator Relationship Specialty Start Date End Date Jay Howell MD [address] [place] [phone] PCP - General Emergency Medicine 11/12/23 documented as of this encounter
--- OUTSIDE RECORDS SUMMARY | 2025-08-16 09:16 | XMS_ITS | Encounter Summary ---
Author Organization [employer] ([place], [place], [place], [place]) Address [address] [place] [address] Care Team Providers Care Multilith Operator Name Role Phone Jay Howell MD Primary Care Provider [phone] Encounter Details Date Type Department Care Team (Late st Contact Info) Description 12/20/2018 Transcribed Document [facility] [place] Family Medicine [address] [place] [address] ProviderJessie MD [address] [place] [address] Social History Tobacco Use Types Packs/Day Years Used Date Smoking Tobacco: Never Assessed Comments Unknown Sex and Gender Information Value Date Recorded Sex Assigned at Not on file Legal Sex Female 7:30 PM CDT Gender Identity Not on file Sexual Orientation Not on file documented as of this encounter Miscellaneous Notes * Cerner Conversion Note - Historical ProviderMD - 12/20/2018 12:01 PM COMMUNITY CULTURAL DEVELOPMENT OFFICER Care Management Assessment/Plan Entered On: 12/21/2018 9:37 EST Performed On: 12/21/2018 9:36 EST by ANISH BRAN RN Care Management Note Care Management Note : Discharging today Documentation Status Complete : Yes ANISH RBAN RN - 12/21/2018 9:36 EST Electronically signed by Abel Finnegan Conversion Liquid Waste Treatment Plant Operator Cerner at 02/04/2023 1:57 PM CDT documented in this encounter Plan of Treatment Not on file documented as of this encounter Visit Diagnoses Not on filedocumented in this encounter Care Teams Multilith Operator Relationship Specialty Start Date End Date Jay Howell MD [address] [place] [phone] PCP - General Emergency Medicine 11/12/23 documented as of this encounter
--- OUTSIDE RECORDS SUMMARY | 2025-08-16 09:16 | XMS_ITS | Encounter Summary ---
Author Organization [employer] ([place], [place], [place], [place]) Address [address] [place] [address] Care Team Providers Care Senior Pricing Analyst Name Role Phone Jay Howell MD Primary Care Provider [phone] Encounter Details Date Type Department Care Team (Late st Contact Info) Description 08/30/2020 Transcribed Document [facility] [place] Family Medicine [address] [place] [address] ProviderJessie MD [address] [place] [address] Social History Tobacco Use Types Packs/Day Years Used Date Smoking Tobacco: Never Assessed Comments Unknown Sex and Gender Information Value Date Recorded Sex Assigned at Not on file Legal Sex Female 7:30 PM CDT Gender Identity Not on file Sexual Orientation Not on file documented as of this encounter Miscellaneous Notes * Cerner Conversion Note - Jessie Yuen MD - 08/30/2020 10:43 AM POWER BUILDER DEVELOPER Patient: SKYLER MONTOYA Age: 79 years [...] level of muscle per surgery *Operation RIGHT LINOLEUM FLOOR LAYER access - ultrasound guided Aortogram with LEFT lower extremity run-off LEFT PT angioplasty (2.5-0f666km Nanocross) LEFT peroneal angioplasty (2.5-6e832uw Nanocross) RIGHT LINOLEUM FLOOR LAYER closure (Angioseal) LEFT leg debridement 08/30/20 doing [...] Level 0.70 mg/dL 08/29/2020 02:04 Bun/Creatinine 22.9 [place] 08/29/2020 02:04 eGFR >60 mL/min/1.73m2 08/29/2020 02:04 eGFR NonAfrican >60 mL/min/1.73m2 08/29/2020 02:04 Bun/Creatinine 22.9 [place] 08/29/2020 07:33 Sodium Level 138 mmol/L 08/29/2020 02:04 Potassium Level 3.8 mmol/L 08/30/2020 04:13 Chloride Level 108 mmol/L 08/29/2020 02:04 Carbon Dioxide Level 23 mmol/L 08/29/2020 02:04 Anion Gap 10 08/29/2020 02:04 Blood Urea Nitrogen 16 mg/dL 08/29/2020 02:04 Glucose Level 108 mg/dL [place] 08/29/2020 02:04 Calcium Level 9.1 mg/dL 08/29/2020 02:04 MICRO: ACC: [id number] ORDER: Culture Blood DATE: 08/25/2020 05:01 SOURCE: Blood SITE: Reports Final 08/30/2020 06:01 No growth at 5 days. Pre 08/29/2020 06:01 No growth at 4 days. Pre 08/28/2020 06:01 No growth at 3 days. Pre 08/27/2020 06:01 No growth at 2 days. Pre 08/26/2020 06:01 No growth at 1 day. Pre 08/25/2020 23:02 Culture less than 24 Hrs old == ACC: [id number] ORDER: Culture Blood DATE: 08/25/2020 05:01 SOURCE: Blood SITE: Reports Final 08/30/2020 06:01 No growth at 5 days. Pre 08/29/2020 06:02 No growth at 4 days. Pre 08/28/2020 06:01 No growth at 3 days. Pre 08/27/2020 06:01 No growth at 2 days. Pre 08/26/2020 06:01 No growth at 1 day. Pre 08/25/2020 23:02 Culture less than 24 Hrs old == ACC: [id number] ORDER: Culture Wound and Stain DATE: 08/26/2020 15:23 SOURCE: Surgical Swab SITE: Leg Lower L Reports Final 08/29/2020 08:29 No growth Pre 08/27/2020 07:14 No growth GS 08/26/2020 18:13 Few White Blood Cells No organisms seen. == ACC: [id number] ORDER: Culture Wound and Stain DATE: 08/25/2020 05:00 SOURCE: Wound SITE: Leg Lower L Reports Final 08/28/2020 08:57 No growth Pre 08/26/2020 06:23 No growth GS 08/25/2020 07:26 No organisms seen. Few White Blood Cells Rare epithelial cells == ACC: [id number] ORDER: Culture AFB and Stain DATE: 08/26/2020 13:56 SOURCE: Surgical Swab SITE: Leg Lower L Reports AFS 08/27/2020 13:07 No Acid Fast Bacilli seen == ACC: [id number] ORDER: Culture Anaerobic DATE: 08/26/2020 13:56 SOURCE: Surgical Swab SITE: Leg Lower L Reports Pre 08/28/2020 07:01 No Anaerobic growth Pre 08/27/2020 07:47 Culture in progress == ACC: [id number] ORDER: Culture Fungus DATE: 08/26/2020 13:56 SOURCE: [...] filedocumented in this encounter Care Teams Senior Pricing Analyst Relationship Specialty Start Date End Date Jay Howell MD [address] [place] [phone] PCP - General Emergency Medicine 11/12/23 documented as of this encounter
--- OUTSIDE RECORDS SUMMARY | 2025-08-16 09:16 | XMS_ITS | Encounter Summary ---
Author Organization [employer] ([place], [place], [place], [place]) Address [address] [place] [address] Care Team Providers Care Life Science Teacher Name Role Phone Jay Howell MD Primary Care Provider [phone] Encounter Details Date Type Department Care Team (Late st Contact Info) Description 09/15/2020 Transcribed Document [facility] [place] Family Medicine [address] [place] [address] ProviderJessie MD [address] [place] [address] Social History Tobacco Use Types Packs/Day Years Used Date Smoking Tobacco: Never Assessed Comments Unknown Sex and Gender Information Value Date Recorded Sex Assigned at Not on file Legal Sex Female 7:30 PM CDT Gender Identity Not on file Sexual Orientation Not on file documented as of this encounter Miscellaneous Notes * Cerner Conversion Note - Jessie Yuen MD - 09/15/2020 4:06 PM BRAZER CRAWLER TORCH Patient: SKYLER MONTOYA Age: 79 Years Sex: [...] present starting at the level of the DOCK OPERATIONS SUPERVISOR. Non significant, non-flow restricting plaque noted at common femoral artery. 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 There is a significant (50-75%) stenosis of the distal DOCK OPERATIONS SUPERVISOR. Non significant, non-flow restricting plaque noted at DPA. DOCK OPERATIONS SUPERVISOR & DPA non compressible for FERNIE. TBI: Non compressible. LEFT: Abnormal arterial runoff disease present starting at the level of the DOCK OPERATIONS SUPERVISOR. Non significant, non-flow restricting plaque noted at common femoral artery. There is a severe (>75%) stenosis of the distal DOCK OPERATIONS SUPERVISOR. DOCK OPERATIONS SUPERVISOR & DPA non compressible for FERNIE. TBI: Non compressible. Electronically signed by Sivan [facility] Conversion Dope Dry House Operator Cerner at 02/04/2023 2:21 PM CDT documented in this encounter Plan of Treatment Not on file documented as of this encounter Visit Diagnoses Not on filedocumented in this encounter Care Teams Life Science Teacher Relationship Specialty Start Date End Date Jay Howell MD [address] [place] [phone] PCP - General Emergency Medicine 11/12/23 documented as of this encounter
--- OUTSIDE RECORDS SUMMARY | 2025-08-16 09:16 | XMS_ITS | Clinical Summary ---
Author Organization [employer] ([place], [place], [place], [place]) Address [address] [place] [address] Care Team Providers Care Mail Opener Name Role Phone Jay Howell MD [...] Date Kennedy rded Speak language other than Somali at home Not on file 10/30/2023 Want [...] history exists Insurance MEDICARE [place] [place] [address] [place] [id number] Advance Directives For more information, please contact: [phone] * Full Code (Latest Code Status on File) Date Activated Date Inactivated Comments 11/25/2022 10:41 AM 11/26/2022 5:33 PM * Full Code Date Activated Date Inactivated Comments 11/25/2022 8:11 AM 11/25/2022 10:41 AM -Attempt Resu scitation if person has no pulse and is not breathing. -If no pulse or not breathing attempt CPR/CODE. -Call Rapid Response if patient is in distress. Care Teams Mail Opener Relationship Specialty Start Date End Date Jay Howell MD [address] [place] [phone] PCP - General Emergency Medicine 11/12/23
--- OUTSIDE RECORDS SUMMARY | 2025-08-16 09:16 | XMS_ITS | Encounter Summary ---
Author Organization [employer] ([place], [place], [place], [place]) Address [address] [place] [address] Care Team Providers Care Comptometrist Name Role Phone Jay Howell MD Primary Care Provider [phone] Encounter Details Date Type Department Care Team (Late st Contact Info) Description 12/20/2018 Transcribed Document [facility] [place] Family Medicine [address] [place] [address] ProviderJessie MD [address] [place] [address] Social History Tobacco Use Types Packs/Day Years Used Date Smoking Tobacco: Never Assessed Comments Unknown Sex and Gender Information Value Date Recorded Sex Assigned at Not on file Legal Sex Female 7:30 PM CDT Gender Identity Not on file Sexual Orientation Not on file documented as of this encounter Miscellaneous Notes * Cerner Conversion Note - Historical ProviderMD - 12/20/2018 1:13 PM VOCATIONAL NURSING INSTRUCTOR Advance Directive Entered On: 12/20/2018 13:35 EST Performed On: 12/20/2018 13:13 EST by ARTHUR HONEYCUTT Advance Directive Patient has Advance Directive *Q : No, patient requests assist formulating Advance Directive Patient Given Information about AD : Yes Advance Directive Comment : Provided advance directive info. ARTHUR HONEYCUTT - 12/20/2018 13:35 EST Electronically signed by Sivan [facility] Conversion Emergency Medical Technician/Driver Cerner at 02/04/2023 1:55 PM CDT documented in this encounter Plan of Treatment Not on file documented as of this encounter Visit Diagnoses Not on filedocumented in this encounter Care Teams Comptometrist Relationship Specialty Start Date End Date Jay Howell MD [address] [place] [phone] PCP - General Emergency Medicine 11/12/23 documented as of this encounter
--- OUTSIDE RECORDS SUMMARY | 2025-08-16 09:16 | XMS_ITS | Encounter Summary ---
Author Organization [employer] ([place], [place], [place], [place]) Address [address] [place] [address] Care Team Providers Care Foreign Diplomat Name Role Phone Jay Howell MD Primary Care Provider [phone] Encounter Details Date Type Department Care Team (Late st Contact Info) Description 12/20/2018 Transcribed Document [facility] [place] [address] [place] [address] ProviderJessie MD [address] [place] [address] Social History Tobacco Use Types Packs/Day Years Used Date Smoking Tobacco: Never Assessed Comments Unknown Sex and Gender Information Value Date Recorded Sex Assigned at Not on file Legal Sex Female 7:30 PM CDT Gender Identity Not on file Sexual Orientation Not on file documented as of this encounter Miscellaneous Notes * Cerner Conversion Note - Historical ProviderMD - 12/20/2018 12:01 PM POLICE PATROL LIEUTENANT Spiritual Care Assessment Entered On: 12/20/2018 13:37 EST Performed On: 12/20/2018 13:13 EST by ARTHUR HONEYCUTT General Information Initial Visit : Yes Referred by : Patient Referral Reason Comment : Advance directive Ministry Provided to : Patient, Family/Significant other Episcopal Preference : Yazidi ARTHUR HONEYCUTT - 12/20/2018 13:35 EST Spiritual [...] supported, Feelings expressed, Information provided Spiritual and Episcopal : Spiritual/Episcopal support provided Change, Adjustment and Loss : Provided support for current loss/grief ARTHUR HONEYCUTT P - 12/20/2018 13:35 EST Electronically signed by [facility] Conversion Sports Editor Cerner at 02/04/2023 2:01 PM CDT documented in this encounter Plan of Treatment Not on file documented as of this encounter Visit Diagnoses Not on filedocumented in this encounter Care Teams Foreign Diplomat Relationship Specialty Start Date End Date Jay Howell MD [address] [place] [phone] PCP - General Emergency Medicine 11/12/23 documented as of this encounter
--- OUTSIDE RECORDS SUMMARY | 2025-08-16 09:16 | XMS_ITS | Encounter Summary ---
Author Organization [employer] ([place], [place], [place], [place]) Address [address] [place] [address] Care Team Providers Care Gusset Ripper Name Role Phone Jay Howell MD Primary Care Provider [phone] Encounter Details Date Type Department Care Team (Late st Contact Info) Description 08/30/2020 Transcribed Document [facility] [place] Family Medicine [address] [place] [address] ProviderJessie MD [address] [place] [address] Social History Tobacco Use Types Packs/Day Years Used Date Smoking Tobacco: Never Assessed Comments Unknown Sex and Gender Information Value Date Recorded Sex Assigned at Not on file Legal Sex Female 7:30 PM CDT Gender Identity Not on file Sexual Orientation Not on file documented as of this encounter Miscellaneous Notes * Cerner Conversion Note - Jessie Yuen MD - 08/30/2020 9:36 AM ASSISTED LIVING HOUSEKEEPER Patient: SKYLER MONTOYA Age: 79 years Sex: [...] for this consult, Miladys Lopez, KellD PGY-1 Cover Mat Machine Operator Pager #: [phone] Extension #: [phone] Electronically signed by [facility], [facility] Conversion Finance Director Cerner at 02/04/2023 2:03 PM CDT documented in this encounter Plan of Treatment Not on file documented as of this encounter Visit Diagnoses Not on filedocumented in this encounter Care Teams Gusset Ripper Relationship Specialty Start Date End Date Jay Howell MD [address] [place] [phone] PCP - General Emergency Medicine 11/12/23 documented as of this encounter
--- OUTSIDE RECORDS SUMMARY | 2025-08-16 09:16 | XMS_ITS | Encounter Summary ---
Author Organization [employer] ([place], [place], [place], [place]) Address [address] [place] [address] Care Team Providers Care Ovens Supervisor Name Role Phone Jay Howell MD Primary Care Provider [phone] Encounter Details Date Type Department Care Team (Late st Contact Info) Description 08/29/2020 Transcribed Document [facility] [place] [address] [place] [address] ProviderJessie MD [address] [place] [address] Social History Tobacco Use Types Packs/Day Years Used Date Smoking Tobacco: Never Assessed Comments Unknown Sex and Gender Information Value Date Recorded Sex Assigned at Not on file Legal Sex Female 7:30 PM CDT Gender Identity Not on file Sexual Orientation Not on file documented as of this encounter Miscellaneous Notes * Cerner Conversion Note - Jessie Yuen MD - 08/29/2020 2:41 PM LEVELER On Going Discharge Planning Entered On: 08/29/2020 14:44 EST Performed On: 08/29/2020 14:41 EST by KAVITA PELLETIER RN-Optometric TechnologistInsurance Claim Auditor Progress Note Discharge Arrangements : Patient [...] Meeting Medical Necessity : Yes KAVITA PELLETIER RN-Optometric Technologist - 08/29/2020 14:41 EST Narrative Progress Note Narrative Progress Note : No DC today--INR-1.5. Hep gtt started to bridge Coumadin. NPWT for home obtained from [employer] and has been delivered to pt's room. [...] will obtain prior to dc. List of CHEMIST WATER PURIFICATION's for [place] given to pt. She will choose and inform CM. Coumadin restarted today. CM will continue to follow. KAVITA PELLETIER RN-Optometric Technologist - 08/28/20 15:37:20 Pt is s/p LLE [...] past after her SIM[facility] and went to [facility] prior to home with HH. She is agreeable to look at list of CHEMIST WATER PURIFICATION to make an informed decision based on quality and resource use information. Cx's are pending to determine need for IV abx at home. Likely dc in a few days. CM will continue to follow. KAVITA PELLETIER RN-Optometric Technologist - 08/27/20 15:14:36 KAVITA PELLETIER RN-Optometric Technologist - 08/29/2020 14:41 EST Electronically signed by Sivan [facility] Conversion Nursing Agency Manager Cerner at 02/04/2023 2:06 PM CDT documented in this encounter Plan of Treatment Not on file documented as of this encounter Visit Diagnoses Not on filedocumented in this encounter Care Teams Ovens Supervisor Relationship Specialty Start Date End Date Jay Howell MD [address] [place] [phone] PCP - General Emergency Medicine 11/12/23 documented as of this encounter
--- OUTSIDE RECORDS SUMMARY | 2025-08-16 09:16 | XMS_ITS | Encounter Summary ---
Author Organization [employer] ([place], [place], [place], [place]) Address [address] [place] [address] Care Team Providers Care School Cafeteria Cook Head Name Role Phone Jay Howell MD Primary Care Provider [phone] Encounter Details Date Type Department Care Team (Late st Contact Info) Description 08/29/2020 Transcribed Document [facility] [place] [address] [place] [address] ProviderJessie MD [address] [place], [place] [address] Social History Tobacco Use Types Packs/Day Years Used Date Smoking Tobacco: Never Assessed Comments Unknown Sex and Gender Information Value Date Recorded Sex Assigned at Not on file Legal Sex Female 7:30 PM CDT Gender Identity Not on file Sexual Orientation Not on file documented as of this encounter Miscellaneous Notes * Cerner Conversion Note - Jessie ProviderMD - 08/29/2020 1:45 PM [facility] Interventions Entered On: 08/29/2020 15:05 EST Performed On: 08/29/2020 15:03 EST by SLICK BRADLEY [facility] Clinical Interventions Clarify Drug Order : Yes SLICK BRADLEY RP - 08/29/2020 15:03 EST Clarify Drug Order Clarify Drug Order, Order : aprin gtt as bridge therapy. S/W Leti, wt 69kg (rounded to 70kg) NO bolus per attending. Start heparin gtt at 12.6ml/h Clarify Drug Order, Value : 0 Dollar Clarify Drug Order, Time : 10 Minute(s) SLICK BRADLEY, [facility] - 08/29/2020 15:03 EST Electronically signed by [facility], [facility] Conversion Associate Professor Of Medicine Cerner at 02/04/2023 2:17 PM CDT documented in this encounter Plan of Treatment Not on file documented as of this encounter Visit Diagnoses Not on filedocumented in this encounter Care Teams School Cafeteria Cook Head Relationship Specialty Start Date End Date Jay Howell MD [address] [place] [phone] PCP - General Emergency Medicine 11/12/23 documented as of this encounter
--- OUTSIDE RECORDS SUMMARY | 2025-08-16 09:16 | XMS_ITS | Encounter Summary ---
Author Organization [employer] ([place], [place], [place], [place]) Address [address] [place] [address] Care Team Providers Care Rug Dyer Helper Name Role Phone Jay Howell MD Primary Care Provider [phone] Encounter Details Date Type Department Care Team (Late st Contact Info) Description 08/31/2020 Transcribed Document [facility] [place] [address] [place] [address] ProviderJessie MD [address] [place] [address] Social History Tobacco Use Types Packs/Day Years Used Date Smoking Tobacco: Never Assessed Comments Unknown Sex and Gender Information Value Date Recorded Sex Assigned at Not on file Legal Sex Female 7:30 PM CDT Gender Identity Not on file Sexual Orientation Not on file documented as of this encounter Miscellaneous Notes * Cerner Conversion Note - Jessie Yuen MD - 08/31/2020 9:43 AM WARRANTY ADMINISTRATOR Patient: SKYLER MONTOYA Age: 79 years Sex: [...] mg, 6 mL, 112 mL/Hr, IV Piggyback, [id number] 0.5 mg-2.5 mg/3 mL inhalation solution: [...] Tab, Oral, Daily, 30 Tab, 0 Refill(s) Holly 7.5 mg-325 mg oral tablet: 1 Tab, [...] mL 300 mg 6 mL, IV Piggyback, [id number] dorzolamide 2% ophth soln 10 mL 1 [...] Confirmed Coronary artery disease / SNOMED CT 9353661990 / Confirmed Stented coronary artery / SNOMED CT 0358472750 / Confirmed High blood pressure / SNOMED CT 17898534 / Confirmed Hyperlipidemia / SNOMED CT 75949181 / Confirmed COPD / SNOMED CT 11784915 / Confirmed GERD - Gastro-esophageal reflux disease / SNOMED CT 0680146393 / Confirmed Multiple renal cysts / SNOMED CT 380116759 / Confirmed Arthritis / SNOMED CT 6687300 / Confirmed Diabetes mellitus / SNOMED CT 552836551 / Confirmed Emphysema / SNOMED CT 363348527 / Confirmed Apnea, sleep / SNOMED CT 513130825 / Confirmed Hx of pulmonary embolus / SNOMED CT 961788380 / Confirmed Chronic anticoagulation / SNOMED CT 985147502 / Confirmed Atrial fibrillation with RVR / SNOMED CT 5771901709 / Confirmed Chest pain / SNOMED CT 50197244 / Complaint of History of obstructive sleep apnea / IMO 04978615 / Confirmed Resolved: UTI - Urinary tract infection / SNOMED CT 7166692077 Canceled: History of obstructive sleep apnea / IMO 06627618, Active Problems (20) Apnea, sleep Arthritis Atrial [...] based on INR Electronically signed by Sivan [facility] Conversion Chisel Mortiser Operator Cerner at 02/04/2023 2:09 PM CDT documented in this encounter Plan of Treatment Not on file documented as of this encounter Visit Diagnoses Not on filedocumented in this encounter Care Teams Rug Dyer Helper Relationship Specialty Start Date End Date Jay Howell MD [address] [place] [phone] PCP - General Emergency Medicine 11/12/23 documented as of this encounter
--- OUTSIDE RECORDS SUMMARY | 2025-08-16 09:16 | XMS_ITS | Encounter Summary ---
Author Organization [employer] ([place], [place], [place], [place]) Address [address] [place] [address] Care Team Providers Care Weaver Hand Loom Name Role Phone Jay Howell MD Primary Care Provider [phone] Encounter Details Date Type Department Care Team (Late st Contact Info) Description 12/14/2018 Transcribed Document [facility] [place] [address] [place] [address] ProviderJessie MD [address] [place], [place] [address] Social History Tobacco Use Types Packs/Day Years Used Date Smoking Tobacco: Never Assessed Comments Unknown Sex and Gender Information Value Date Recorded Sex Assigned at Not on file Legal Sex Female 7:30 PM CDT Gender Identity Not on file Sexual Orientation Not on file documented as of this encounter Miscellaneous Notes * Cerner Conversion Note - Jessie ProviderMD - 12/14/2018 4:47 PM BUDGET ANALYST CR Chest 2 Vws Ordered: 12/12/2018 Auth (Verified) Reason for Exam: cp 12/13/2018 11:39 12/14/2018 16:47 (FLORENTIN CAMARGO) No further action required documented in this encounter Plan of Treatment Not on file documented as of this encounter Visit Diagnoses Not on filedocumented in this encounter Care Teams Weaver Hand Loom Relationship Specialty Start Date End Date Jay Howell MD [address] [place] [phone] PCP - General Emergency Medicine 11/12/23 documented as of this encounter
--- OUTSIDE RECORDS SUMMARY | 2025-08-16 09:16 | XMS_ITS | Encounter Summary ---
Author Organization [employer] ([place], [place], [place], [place]) Address [address] [place] [address] Care Team Providers Care Field Professional Name Role Phone Jay Howell MD Primary Care Provider [phone] Encounter Details Date Type Department Care Team (Late st Contact Info) Description 09/01/2020 Transcribed Document [facility] [place] Family Medicine [address] [place] [address] ProviderJessie MD [address] [place] [address] Social History Tobacco Use Types Packs/Day Years Used Date Smoking Tobacco: Never Assessed Comments Unknown Sex and Gender Information Value Date Recorded Sex Assigned at Not on file Legal Sex Female 7:30 PM CDT Gender Identity Not on file Sexual Orientation Not on file documented as of this encounter Miscellaneous Notes * Cerner Conversion Note - Jessie Yuen MD - 09/01/2020 10:55 AM OPERATOR RECEPTIONIST Patient: SKYLER MONTOYA Age: 79 years Sex: [...] level of muscle per surgery *Operation RIGHT REGIONAL CONTROLLER access - ultrasound guided Aortogram with LEFT lower extremity run-off LEFT PT angioplasty (2.5-1a349jm Nan[employer]) LEFT peroneal angioplasty (2.5-2h372ip [employer]) RIGHT REGIONAL CONTROLLER closure (Angioseal) LEFT leg debridement 09/01/20 probable [...] Results Found (Past 24 Hours) MICRO: ACC: [id number] ORDER: Culture Anaerobic DATE: 08/26/2020 13:56 SOURCE: Surgical Swab SITE: Leg Lower L Reports Final 08/31/2020 07:45 No Anaerobic growth Pre 08/28/2020 07:01 No Anaerobic growth Pre 08/27/2020 07:47 Culture in progress == ACC: [id number] ORDER: Culture Blood DATE: 08/25/2020 05:01 SOURCE: Blood SITE: Reports Final 08/30/2020 06:01 No growth at 5 days. Pre 08/29/2020 06:01 No growth at 4 days. Pre 08/28/2020 06:01 No growth at 3 days. Pre 08/27/2020 06:01 No growth at 2 days. Pre 08/26/2020 06:01 No growth at 1 day. Pre 08/25/2020 23:02 Culture less than 24 Hrs old == ACC: [id number] ORDER: Culture Blood DATE: 08/25/2020 05:01 SOURCE: Blood SITE: Reports Final 08/30/2020 06:01 No growth at 5 days. Pre 08/29/2020 06:02 No growth at 4 days. Pre 08/28/2020 06:01 No growth at 3 days. Pre 08/27/2020 06:01 No growth at 2 days. Pre 08/26/2020 06:01 No growth at 1 day. Pre 08/25/2020 23:02 Culture less than 24 Hrs old == ACC: [id number] ORDER: Culture Wound and Stain DATE: 08/26/2020 15:23 SOURCE: Surgical Swab SITE: Leg Lower L Reports Final 08/29/2020 08:29 No growth Pre 08/27/2020 07:14 No growth GS 08/26/2020 18:13 Few White Blood Cells No organisms seen. == ACC: [id number] ORDER: Culture Wound and Stain DATE: 08/25/2020 05:00 SOURCE: Wound SITE: Leg Lower L Reports Final 08/28/2020 08:57 No growth Pre 08/26/2020 06:23 No growth GS 08/25/2020 07:26 No organisms seen. Few White Blood Cells Rare epithelial cells == ACC: [id number] ORDER: Culture AFB and Stain DATE: 08/26/2020 13:56 SOURCE: Surgical Swab SITE: Leg Lower L Reports AFS 08/27/2020 13:07 No Acid Fast Bacilli seen == ACC: [id number] ORDER: Culture Fungus DATE: 08/26/2020 13:56 SOURCE: [...] filedocumented in this encounter Care Teams Field Professional Relationship Specialty Start Date End Date Jay Howell MD [address] [place] [phone] PCP - General Emergency Medicine 11/12/23 documented as of this encounter
--- OUTSIDE RECORDS SUMMARY | 2025-08-16 09:16 | XMS_ITS | Encounter Summary ---
Author Organization [employer] ([place], [place], [place], [place]) Address [address] [place] [address] Care Team Providers Care Wildlife Forensic Geneticist Name Role Phone Jay Howell MD Primary Care Provider [phone] Encounter Details Date Type Department Care Team (Late st Contact Info) Description 08/31/2020 Transcribed Document [facility] [place] Family Medicine [address] [place] [address] ProviderJessie MD [address] [place] [address] Social History Tobacco Use Types [...] Jessie Yuen MD - 08/31/2020 8:53 AM SALES TRAINER Patient: SKYLER MONTOYA Age: 79 years Sex: Female : 1940 Associated Diagnoses: None Author: Mildays Lopez, Pharmacist-Resident Ms. Montoya is 79 yo [...] for this consult, Miladys Lopez, KellD PGY-1 Marketing Strategy Lead Pager #: [phone] Extension #: [phone] Electronically signed by Sivan [facility] Conversion Ring Stamper Cerner at 02/04/2023 2:02 PM CDT documented in this encounter Plan of Treatment Not on file documented as of this encounter Visit Diagnoses Not on filedocumented in this encounter Care Teams Wildlife Forensic Geneticist Relationship Specialty Start Date End Date Jay Howell MD [address] [place] [phone] PCP - General Emergency Medicine 11/12/23 documented as of this encounter
--- OUTSIDE RECORDS SUMMARY | 2025-08-16 09:16 | XMS_ITS | Encounter Summary ---
Author Organization [employer] ([place], [place], [place], [place]) Address [address] [place] [address] Care Team Providers Care Home Office Claim Specialist Name Role Phone Jay Howell MD Primary Care Provider [phone] Encounter Details Date Type Department Care Team (Late st Contact Info) Description 09/01/2020 Transcribed Document [facility] [place] [address] [place] [address] ProviderJessie MD [address] [place] [address] Social History Tobacco Use Types Packs/Day Years Used Date Smoking Tobacco: Never Assessed Comments Unknown Sex and Gender Information Value Date Recorded Sex Assigned at Not on file Legal Sex Female 7:30 PM CDT Gender Identity Not on file Sexual Orientation Not on file documented as of this encounter Miscellaneous Notes * Cerner Conversion Note - Jessie ProviderMD - 09/01/2020 1:18 PM RUCHING MACHINE OPERATOR On Going Discharge Planning Entered On: 09/01/2020 13:19 EST Performed On: 09/01/2020 13:18 EST by KAVITA PELLETIER RN-Stave InspectorRetail Mortgage Banker Progress Note Discharge Arrangements : Patient Post-Acute Information Patient Name: SKYLER MONTOYA Gender: Female : [birth year] Age: 79 Years [place] Referral(s): Service: Organization: Business Address: Phone Number: [address], [address] Discharge Options Discussed with Patient [...] Attend Multidisciplinary Rounds? : Yes KAVITA PELLETIER RN-Stave Inspector - 09/01/2020 13:18 EST Electronically signed by [facility], [facility] Conversion Call Center Supervisor Cerner at 02/04/2023 2:00 PM CDT documented in this encounter Plan of Treatment Not on file documented as of this encounter Visit Diagnoses Not on filedocumented in this encounter Care Teams Home Office Claim Specialist Relationship Specialty Start Date End Date Jay Howell MD [address] [place] [phone] PCP - General Emergency Medicine 11/12/23 documented as of this encounter
--- OUTSIDE RECORDS SUMMARY | 2025-08-16 09:16 | XMS_ITS | Encounter Summary ---
Author Organization [employer] ([place], [place], [place], [place]) Address [address] [place] [address] Care Team Providers Care Online Publisher Name Role Phone Jay Howell MD Primary Care Provider [phone] Encounter Details Date Type Department Care Team (Late st Contact Info) Description 12/14/2018 Transcribed Document [facility] [place] [address] [place] [address] ProviderJessie MD [address] [place], [place] [address] Social History Tobacco Use Types Packs/Day Years Used Date Smoking Tobacco: Never Assessed Comments Unknown Sex and Gender Information Value Date Recorded Sex Assigned at Not on file Legal Sex Female 7:30 PM CDT Gender Identity Not on file Sexual Orientation Not on file documented as of this encounter Miscellaneous Notes * Cerner Conversion Note - Historical ProviderMD - 12/14/2018 4:49 PM ELECTRON TUBE ASSEMBLER CR Chest 2 Vws Ordered: 12/12/2018 Auth (Verified) Reason for Exam: cp 12/13/2018 11:39 12/14/2018 16:49 (LESTER PILLAI PA) Reviewed by Provider, No further action required X1 12/14/2018 16:47 (FLORENTIN CAMARGO) No further action required Electronically signed by Sivan [facility] Conversion Fruit Thinner Machine Operator Cerner at 02/04/2023 2:04 PM CDT documented in this encounter Plan of Treatment Not on file documented as of this encounter Visit Diagnoses Not on filedocumented in this encounter Care Teams Online Publisher Relationship Specialty Start Date End Date Jay Howell MD [address] [place] [phone] PCP - General Emergency Medicine 11/12/23 documented as of this encounter
--- OUTSIDE RECORDS SUMMARY | 2025-08-16 09:16 | XMS_ITS | Encounter Summary ---
Author Organization [employer] ([place], [place], [place], [place]) Address [address] [place] [address] Care Team Providers Care Hotel Desk Clerk Name Role Phone Jay Howell MD Primary Care Provider [phone] Encounter Details Date Type Department Care Team (Late st Contact Info) Description 08/29/2020 Transcribed Document [facility] [place] [address] [place] [address] ProviderJessie MD [address] [place] [address] Social History Tobacco Use Types Packs/Day Years Used Date Smoking Tobacco: Never Assessed Comments Unknown Sex and Gender Information Value Date Recorded Sex Assigned at Not on file Legal Sex Female 7:30 PM CDT Gender Identity Not on file Sexual Orientation Not on file documented as of this encounter Miscellaneous Notes * Cerner Conversion Note - Jessie ProviderMD - 08/29/2020 2:50 PM LABORATORY APPARATUS GLASS BLOWER WOCN Inpatient Documentation Entered On: 08/29/2020 14:52 [...] Ulcer WOCN Wound Pressure Ulcer Documentation : [id number] Abnormality: Leg Left Lower, Anterior on 08/29/2020 [...] on filedocumented in this encounter Care Teams Hotel Desk Clerk Relationship Specialty Start Date End Date Jay Howell MD [address] [place] [phone] PCP - General Emergency Medicine 11/12/23 documented as of this encounter
--- OUTSIDE RECORDS SUMMARY | 2025-08-16 09:16 | XMS_ITS | Encounter Summary ---
Author Organization [employer] ([place], [place], [place], [place]) Address [address] [place] [address] Care Team Providers Care Electrician Substation Supervisor Name Role Phone Jay Howell MD Primary Care Provider [phone] Encounter Details Date Type Department Care Team (Late st Contact Info) Description 08/29/2020 Transcribed Document [facility] [place] Family [place] [address] [place] [address] ProviderJessie MD [address] [place] [address] Social History Tobacco Use Types Packs/Day Years Used Date Smoking Tobacco: Never Assessed Comments Unknown Sex and Gender Information Value Date Recorded Sex Assigned at Not on file Legal Sex Female 7:30 PM CDT Gender Identity Not on file Sexual Orientation Not on file documented as of this encounter Miscellaneous Notes * Cerner Conversion Note - Jessie ProviderMD - 08/29/2020 2:00 AM LEAD COATER Furnace Roaster Details Entered On: 08/29/2020 6:08 EST Performed [...] 08/29/2020 6:07 EST Electronically signed by Sivan [facility] Conversion Liberal Arts Teacher Cerner at 02/04/2023 1:58 PM CDT documented in this encounter Plan of Treatment Not on file documented as of this encounter Visit Diagnoses Not on filedocumented in this encounter Care Teams Electrician Substation Supervisor Relationship Specialty Start Date End Date Jay Howell MD [address] [place] [phone] PCP - General Emergency Medicine 11/12/23 documented as of this encounter
--- OUTSIDE RECORDS SUMMARY | 2025-08-16 09:16 | XMS_ITS | Encounter Summary ---
Author Organization [employer] ([place], [place], [place], [place]) Address [address] [place] [address] Care Team Providers Care Knotting Machine Operator Portable Name Role Phone Jay Howell MD Primary Care Provider [phone] Encounter Details Date Type Department Care Team (Late st Contact Info) Description 08/31/2020 Transcribed Document [facility] [place] [address] [place] [address] ProviderJessie MD [address] [place] [address] Social History Tobacco Use Types Packs/Day Years Used Date Smoking Tobacco: Never Assessed Comments Unknown Sex and Gender Information Value Date Recorded Sex Assigned at Not on file Legal Sex Female 7:30 PM CDT Gender Identity Not on file Sexual Orientation Not on file documented as of this encounter Miscellaneous Notes * Cerner Conversion Note - Jessie Yuen MD - 08/31/2020 10:44 AM TEST RACK OPERATOR Patient: SKYLER MONTOYA Age: 79 years [...] level of muscle per surgery *Operation RIGHT INTERNET SOURCER access - ultrasound guided Aortogram with LEFT lower extremity run-off LEFT PT angioplasty ([id number] Nanocross) LEFT peroneal angioplasty ([id number] Nanocross) RIGHT INTERNET SOURCER closure (Angioseal) LEFT leg debridement 08/31/20 seen [...] Level 3.8 mmol/L 08/30/2020 04:13 MICRO: ACC: [id number] ORDER: Culture Anaerobic DATE: 08/26/2020 13:56 SOURCE: Surgical Swab SITE: Leg Lower L Reports Final 08/31/2020 07:45 No Anaerobic growth Pre 08/28/2020 07:01 No Anaerobic growth Pre 08/27/2020 07:47 Culture in progress == ACC: [id number] ORDER: Culture Blood DATE: 08/25/2020 05:01 SOURCE: Blood SITE: Reports Final 08/30/2020 06:01 No growth at 5 days. Pre 08/29/2020 06:01 No growth at 4 days. Pre 08/28/2020 06:01 No growth at 3 days. Pre 08/27/2020 06:01 No growth at 2 days. Pre 08/26/2020 06:01 No growth at 1 day. Pre 08/25/2020 23:02 Culture less than 24 Hrs old == ACC: [id number] ORDER: Culture Blood DATE: 08/25/2020 05:01 SOURCE: Blood SITE: Reports Final 08/30/2020 06:01 No growth at 5 days. Pre 08/29/2020 06:02 No growth at 4 days. Pre 08/28/2020 06:01 No growth at 3 days. Pre 08/27/2020 06:01 No growth at 2 days. Pre 08/26/2020 06:01 No growth at 1 day. Pre 08/25/2020 23:02 Culture less than 24 Hrs old == ACC: [id number] ORDER: Culture Wound and Stain DATE: 08/26/2020 15:23 SOURCE: Surgical Swab SITE: Leg Lower L Reports Final 08/29/2020 08:29 No growth Pre 08/27/2020 07:14 No growth GS 08/26/2020 18:13 Few White Blood Cells No organisms seen. == ACC: [id number] ORDER: Culture Wound and Stain DATE: 08/25/2020 05:00 SOURCE: Wound SITE: Leg Lower L Reports Final 08/28/2020 08:57 No growth Pre 08/26/2020 06:23 No growth GS 08/25/2020 07:26 No organisms seen. Few White Blood Cells Rare epithelial cells == ACC: [id number] ORDER: Culture AFB and Stain DATE: 08/26/2020 13:56 SOURCE: Surgical Swab SITE: Leg Lower L Reports AFS 08/27/2020 13:07 No Acid Fast Bacilli seen == ACC: [id number] ORDER: Culture Fungus DATE: 08/26/2020 13:56 SOURCE: [...] closely after discharge Electronically signed by Sivan [facility] Conversion Dobie Man Cerner at 02/04/2023 2:11 PM CDT documented in this encounter Plan of Treatment Not on file documented as of this encounter Visit Diagnoses Not on filedocumented in this encounter Care Teams Knotting Machine Operator Portable Relationship Specialty Start Date End Date Jay Howell MD [address] [place] [phone] PCP - General Emergency Medicine 11/12/23 documented as of this encounter
--- OUTSIDE RECORDS SUMMARY | 2025-08-16 09:16 | XMS_ITS | Encounter Summary ---
Author Organization [employer] ([place], [place], [place], [place]) Address [address] [place] [address] Care Team Providers Care Furnace Tapper Name Role Phone Jay Howell MD Primary Care Provider [phone] Encounter Details Date Type Department Care Team (Late st Contact Info) Description 08/30/2020 Transcribed Document [facility] [place] [address] [place] [address] ProviderJessie MD [address] [place] [address] Social History Tobacco Use Types Packs/Day Years Used Date Smoking Tobacco: Never Assessed Comments Unknown Sex and Gender Information Value Date Recorded Sex Assigned at Not on file Legal Sex Female 7:30 PM CDT Gender Identity Not on file Sexual Orientation Not on file documented as of this encounter Miscellaneous Notes * Cerner Conversion Note - Jessie Yuen MD - 08/30/2020 8:14 AM COMMERCIAL ESCROW ASSISTANT Patient: SKYLER MONTOYA Age: 79 years [...] mg, 6 mL, 112 mL/Hr, IV Piggyback, T15WKpt DuoNeb 0.5 mg-2.5 mg/3 mL inhalation solution: [...] Tab, Oral, Daily, 30 Tab, 0 Refill(s) Arlee 7.5 mg-325 mg oral tablet: 1 Tab, [...] mL 300 mg 6 mL, IV Piggyback, M10IMhf dorzolamide 2% ophth soln 10 mL 1 [...] Confirmed Coronary artery disease / SNOMED CT 3602569369 / Confirmed Stented coronary artery / SNOMED CT 9660382662 / Confirmed High blood pressure / SNOMED CT 07593767 / Confirmed Hyperlipidemia / SNOMED CT 14627957 / Confirmed COPD / SNOMED CT 17502955 / Confirmed GERD - Gastro-esophageal reflux disease / SNOMED CT 4400388748 / Confirmed Multiple renal cysts / SNOMED CT 733622102 / Confirmed Arthritis / SNOMED CT 4305223 / Confirmed Diabetes mellitus / SNOMED CT 223905963 / Confirmed Emphysema / SNOMED CT 516401326 / Confirmed Apnea, sleep / SNOMED CT 897152948 / Confirmed Hx of pulmonary embolus / SNOMED CT 717896587 / Confirmed Chronic anticoagulation / SNOMED CT 882763585 / Confirmed Atrial fibrillation with RVR / SNOMED CT 5859448376 / Confirmed Chest pain / SNOMED CT 46973377 / Complaint of History of obstructive sleep apnea / IMO 66289835 / Confirmed, Active Problems (20) Apnea, sleep [...] days based on INR Electronically signed by [facility], [facility] Conversion Insolvency Practitioner Cerner at 02/04/2023 2:10 PM CDT documented in this encounter Plan of Treatment Not on file documented as of this encounter Visit Diagnoses Not on filedocumented in this encounter Care Teams Furnace Tapper Relationship Specialty Start Date End Date Jay Howell MD [address] [place] [phone] PCP - General Emergency Medicine 11/12/23 documented as of this encounter
--- OUTSIDE RECORDS SUMMARY | 2025-08-16 09:16 | XMS_ITS | Encounter Summary ---
Author Organization [employer] ([place], [place], [place], [place]) Address [address] [place] [address] Care Team Providers Care Public Relations Player Name Role Phone Jay Howell MD Primary Care Provider [phone] Encounter Details Date Type Department Care Team (Late st Contact Info) Description 09/01/2020 Transcribed Document [facility] [place] Medicine [address] [place] [address] ProviderJessie MD [address] [place] [address] Social History Tobacco Use Types [...] Jessie Yuen MD - 09/01/2020 2:[address] [facility] [place] [id number] SKYLER MONTOYA :1940 Visit Time:08/25/2020 Your Visit [...] next 5 days. NEW RX Provided. STOP Charlotte 7.5/325 mg tablets --- NEW RX Provided for 5/325 mg tablets --- Take one or the other - Do not take both. Discharge Activity: Discharge Activity: No heavy lifting over 10 lbs, Avoid Strenuous Activity Until: for 1 week Follow-Up Appointments Follow Up with KAELA VERDE When 09/29/2020 12:30 PM EST Comments F/u w/ FERNIE Where: [place] [address] [place] [phone]- Business (1) Follow Up with KAELA VERDE When 09/08/2020 12:45 PM EST Comments F/u [facility] with Irina Troy PA-C Where: [facility] [address] [place] [address]- Business (1) Follow Up with TARA CHEN When 09/05/2020 12:20 PM EST Comments needs INR check///We have held your Aspirin per vascular surgeon, Dr. Verde///Appointment has been made Where: [address] [phone]- Business (1) Follow Up with KAVITHA HIDALGO When 09/03/2020 02:30 PM EST Comments Appointment has been made Where: [address] [place] [address]- Business (1) Medications What How Much When Instructions Next Dose amoxicillin-clavulanate (amoxicillin-clavulanate 875 mg-125 mg oral tablet) 1 Tablet(s) Oral Every 12 hours Duration: 3 Day(s) Pickup at [facility] Tuesday09/01/2020 9:00 PM clopidogrel (Plavix 75 mg oral tablet) 1 Tablet(s) Oral Every Day Pickup at [facility] Tuesday09/02/2020 9:00 AM doxycycline (Vibramycin 100 mg oral capsule) 1 Capsule(s) Oral Two Times A Day Duration: 3 Day(s) Pickup at [facility] Tuesday09/01/2020 9:00 PM enoxaparin (Lovenox 80 mg/ 0.8 mL injectable solution) 70 Milligram(s) SubCutaneous Every 12 hours Duration: 5 Day(s) Pickup at [facility] [place] Tuesday09/01/2020 9:00 PM lactobacillus acidophilus (lactobacillus acidophilus oral tablet) 2 Tablet(s) Oral Every Day Duration: 28 Day(s) Pickup at [facility] Tuesday09/02/2020 9:00 AM terbinafine (terbinafine 250 mg oral tablet) 1 Tablet(s) Oral Every Day Duration: 6 weeks Pickup at [facility] [place] 09/02/2020 9:00 AM ALPRAZolam (Xanax 0.5 mg oral tablet) 1 Tablet(s) Oral At Bedtime as needed for for anxiety/sleep acetaminophen-hydrocodone (Charlotte 5 mg-325 mg oral tablet) 1 Tablet(s) Oral Every 4 Hours as needed for for pain NEW DOSE. New RX Provided. amLODIPine (Norvasc 10 mg oral tablet) 1 Tablet(s) Oral Every Day Pickup at [facility] Tuesday09/02/2020 9:00 AM atorvastatin (atorvastatin 80 mg oral tablet) 1 Tablet(s) Oral At Bedtime Pickup at [facility] Tuesday09/01/2020 9:00 PM carvedilol (carvedilol 6.25 mg oral tablet) 1 Tablet(s) Oral Three Times A Day Tuesday09/01/2020 4:00 PM dorzolamide ophthalmic (dorzolamide 2% ophthalmic solution) 1 Drop(s) Eye Right Two Times A Day Tuesday09/01/2020 9:00 PM hydrALAZINE (hydrALAZINE 100 mg oral tablet) 1 Tablet(s) Oral Two Times A Day NEW DOSE Pickup at [facility] Tuesday09/01/2020 9:00 PM warfarin (Coumadin 3 mg oral tablet) 1 Tablet(s) Oral Every Day Duration: 5 Day(s) NEW DOSE x the next 5 days. INR will be checked in 2 days. Pickup at [facility] Tuesday09/02/2020 9:00 AM losartan (losartan 100 [...] A Day Tuesday09/01/2020 9:00 PM Pharmacy Information [facility]: [address] [facility] [address] [place], [place] [id number] [phone] Take your medications faithfully. Do NOT skip [...] bag. ??? Soap and water, or hand hand wood sander. ??? Wound cleanser or salt-water solution (saline). [...] and water are not available, use hand hand wood sander. 3. Set up a clean station for [...] and water are not available, use hand hand wood sander. Clean your wound ??? Wear gloves, protective [...] and water are not available, use hand hand wood sander. Apply new dressing ??? Wear gloves, protective [...] and water are not available, use hand hand wood sander. 8. Turn the pump back on. The sponge dressing should collapse. Do not change the settings on the machine without talking to a health care provider. 9. Replace the container in the pump that collects fluid if it is full. Replace the container per the crane ladle person's instructions or at least once a week, [...] clamps are open. ??? Do not use ddad-wew-uciqbeq medicated or antiseptic creams, sprays, liquids, or [...] 12/25/2012 Document Revised: 01/25/2020 Document Reviewed: 12/21/2019 [employer] Patient Education ?? 2020 [employer]. Cellulitis, Adult Cellulitis is a skin [...] these instructions at home: Medicines ??? Take jifa-uhw-dnbqzpz and prescription medicines only as told by [...] 03/21/2009 Document Revised: 02/22/2019 Document Reviewed: 02/22/2019 [employer] Patient Education ?? 2020 [employer]. What You Need to Know About [...] other medicines or supplements? Many prescription and toom-zbo-ntlxbbn medicines can interfere with warfarin. Talk with your health care provider or your pharmacist before starting or stopping any new medicines. This includes eqyy-wjx-mouajny vitamins, dietary supplements, herbal medicines, and pain medicines. Your warfarin dosage may need to be adjusted. ??? Some common tqqp-cmf-ugnkrqn medicines that may increase the risk of [...] you work with a diet and nutrition and dietetics instructor (dietitian). ??? Vitamin K decreases the effect [...] cooked. ??? Collards, raw or cooked. ??? Micronesian chard, raw or cooked. ??? Mustard greens, raw or cooked. ??? Turnip greens, raw or cooked. ??? Parsley, raw. ??? Broccoli, cooked. ??? Noodles, eggs, and spinach, enriched. ??? [place] sprouts, raw or cooked. ??? Beet greens, [...] diet. ??? You start or stop any oshu-ulz-rcfvysk medicine, prescription medicine, or dietary supplement. ??? [...] 10/03/2006 Document Revised: 05/16/2018 Document Reviewed: 12/29/2016 [employer] Patient Education ?? 2020 [employer]. Hematoma A hematoma is a collection of [...] health care provider. General instructions ??? Take mrle-yji-yfkinen and prescription medicines only as told by [...] Assistance with quitting is available by contacting 4-476-FEGJ-NOW. This is a free resource providing counseling, support, and referral. Or you may contact your personal physician. [employer] Suicide Prevention Lifeline: The National Suicide Prevention [...] range between ( 0.0 and 7.0 ) [place] #: 0.64 K/uL -- Normal range between ( 0.16 and 1.00 ) Eos #: 0.11 x10(3)/uL -- Normal range between ( 0.00 and 0.80 ) [place] %: 10.7 % -- Normal range between [...] was given the opportunity to ask questions. Patient/Hide Dropper Name: Patient/Hide Dropper Signature: Relationship to Patient: Clinician/Hospital Hide Dropper Signature: Date: Electronically signed by Sivan, [facility] Conversion Fur Tinter Cerner at 02/04/2023 2:00 PM CDT documented in this encounter Plan of Treatment Not on file documented as of this encounter Visit Diagnoses Not on filedocumented in this encounter Care Teams Public Relations Player Relationship Specialty Start Date End Date Jay Howell MD [address] [place] [phone] PCP - General Emergency Medicine 11/12/23 documented as of this encounter
--- OUTSIDE RECORDS SUMMARY | 2025-08-16 09:16 | XMS_ITS | Encounter Summary ---
Author Organization [employer] ([place], [place], [place], [place]) Address [address] [place] [address] Care Team Providers Care Stockfeed Miller Name Role Phone Jay Howell MD Primary Care Provider [phone] Encounter Details Date Type Department Care Team (Late st Contact Info) Description 08/29/2020 Transcribed Document [facility] [place] [address] [place] [address] ProviderJessie MD [address] [place], [place] [address] Social History Tobacco Use Types Packs/Day Years Used Date Smoking Tobacco: Never Assessed Comments Unknown Sex and Gender Information Value Date Recorded Sex Assigned at Not on file Legal Sex Female 7:30 PM CDT Gender Identity Not on file Sexual Orientation Not on file documented as of this encounter Miscellaneous Notes * Cerner Conversion Note - Historical ProviderMD - 08/29/2020 12:42 PM LINEN CLERK Patient: SKYLER MONTOYA Age: 79 Years Sex: [...] 08/29/2020 01:38 EST Electronically signed by Sivan [facility] Conversion Cytopathologist Cerner at 02/04/2023 2:06 PM CDT documented in this encounter Plan of Treatment Not on file documented as of this encounter Visit Diagnoses Not on filedocumented in this encounter Care Teams Stockfeed Miller Relationship Specialty Start Date End Date Jay Howell MD [address] [place] [phone] PCP - General Emergency Medicine 11/12/23 documented as of this encounter
--- OUTSIDE RECORDS SUMMARY | 2025-08-16 09:16 | XMS_ITS | Encounter Summary ---
Author Organization [employer] ([place], [place], [place], [place]) Address [address] [place] [address] Care Team Providers Care Auto Body Mechanic Name Role Phone Jay Howell MD Primary Care Provider [phone] Encounter Details Date Type Department Care Team (Late st Contact Info) Description 09/08/2020 Transcribed Document [facility] [place] [address] ProviderJessie MD [address] [place] [address] Social History Tobacco Use Types Packs/Day Years Used Date Smoking Tobacco: Never Assessed Comments Unknown Sex and Gender Information Value Date Recorded Sex Assigned at Not on file Legal Sex Female 7:30 PM CDT Gender Identity Not on file Sexual Orientation Not on file documented as of this encounter Miscellaneous Notes * Cerner Conversion Note - eJssie Yuen MD - 09/08/2020 5:27 PM SECOND STEWARD Patient: SKYLER MONTOYA Age: 79 Years Sex: [...] on filedocumented in this encounter Care Teams Auto Body Mechanic Relationship Specialty Start Date End Date Jay Howell MD [address] [place] [phone] PCP - General Emergency Medicine 11/12/23 documented as of this encounter
--- OUTSIDE RECORDS SUMMARY | 2025-08-16 09:17 | XMS_ITS | Encounter Summary ---
Author Organization [employer] ([place], [place], [place], [place]) Address [address] [place] [address] Care Team Providers Care Cvt Tech Name Role Phone Jay Howell MD Primary Care Provider [phone] Encounter Details Date Type Department Care Team (Late st Contact Info) Description 12/12/2018 Transcribed Document [facility] [place] [address] [place] [address] ProviderJessie MD [address] [place] [address] Social History Tobacco Use Types Packs/Day Years Used Date Smoking Tobacco: Never Assessed Comments Unknown Sex and Gender Information Value Date Recorded Sex Assigned at Not on file Legal Sex Female 7:30 PM CDT Gender Identity Not on file Sexual Orientation Not on file documented as of this encounter Miscellaneous Notes * Cerner Conversion Note - Jessie ProviderMD - 12/12/2018 10:39 PM TRACTOR OPERATOR BATTERY ED Discharge Entered On: 12/12/2018 22:40 EST [...] - 12/12/2018 22:39 EST Electronically signed by [facility] Conversion Carpet Mechanic Cerner at 02/04/2023 2:15 PM CDT documented in this encounter Plan of Treatment Not on file documented as of this encounter Visit Diagnoses Not on filedocumented in this encounter Care Teams Cvt Tech Relationship Specialty Start Date End Date Jay Howell MD [address] [place] [phone] PCP - General Emergency Medicine 11/12/23 documented as of this encounter
--- OUTSIDE RECORDS SUMMARY | 2025-08-16 09:17 | XMS_ITS | Encounter Summary ---
Author Organization [employer] ([place], [place], [place], [place]) Address [address] [place] [address] Care Team Providers Care Director Biology Name Role Phone Jay Howell MD Primary Care Provider [phone] Encounter Details Date Type Department Care Team (Late st Contact Info) Description 09/01/2020 Transcribed Document [facility] [place] [facility] [place] [address] ProviderJessie MD [address] [place], [place] [address] Social History Tobacco Use Types Packs/Day Years Used Date Smoking Tobacco: Never Assessed Comments Unknown Sex and Gender Information Value Date Recorded Sex Assigned at Not on file Legal Sex Female 7:30 PM CDT Gender Identity Not on file Sexual Orientation Not on file documented as of this encounter Miscellaneous Notes * Cerner Conversion Note - Historical MD Alpa - 09/01/2020 9:27 AM EMAIL MARKETING ASSISTANT Patient: SKYLER BAUTISTA Age: 79 Years Sex: [...] [1] Summary BILATERAL: Monophasic waveforms of the STAFF PHARMACIST, & DPA . Unable to compress STAFF PHARMACIST and DPA (>220 mmHg). Toe brachial index: Non-compressible [2] RIGHT: Abnormal arterial runoff disease present starting at the level of the STAFF PHARMACIST. Non significant, non-flow restricting plaque noted at common femoral artery. 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 There is a significant (50-75%) stenosis of the distal STAFF PHARMACIST. Non significant, non-flow restricting plaque noted at DPA. STAFF PHARMACIST & DPA non compressible for FERNIE. TBI: Non compressible. LEFT: Abnormal arterial runoff disease present starting at the level of the STAFF PHARMACIST. Non significant, non-flow restricting plaque noted at common femoral artery. There is a severe (>75%) stenosis of the distal STAFF PHARMACIST. STAFF PHARMACIST & DPA non compressible for FERNIE. TBI: [...] multiple stent placements. The patient presented to [facility] ER after recent fall with hematoma [...] Vitamins oral tablet 1 Tab, Oral, Daily [place] 7.5 mg-325 mg oral tablet 1 Tab, [...] -- Start: 08/26/20 17:14:00 EST, 60 gm carbs:[id number] george, Isolation: Standard Precautions, Instructions: Diabetic Diet [...] Ankle Min 3 Vws LT; Shannon Marquez, Geological Manager 08/22/2020 21:21 EST [2] [facility]; ERMA ZHENG MD-AMALIA 08/25/2020 11:29 EST [3] [facility]; ERMA ZHENG MD-AMALIA 08/25/2020 11:40 EST [4] MRI Spine Lumbar WO; Leti Wakefield, MULTI MODALITY TECHNOLOGIST 08/25/2020 15:21 EST [5] CT Abdomen WO W; Gus Lopez, LEGAL ADVISER 08/27/2020 18:06 EST [6] Admission History and Physical; BETH DAVALOS MD-INT 08/25/2020 06:23 EST Electronically signed by Gayle Finnegan Conversion Bioinformatics Support Specialist Cerner at 02/04/2023 2:21 PM CDT documented in this encounter Plan of Treatment Not on file documented as of this encounter Visit Diagnoses Not on filedocumented in this encounter Care Teams Director Biology Relationship Specialty Start Date End Date Jay Howell MD [address] [place] [phone] PCP - General Emergency Medicine 11/12/23 documented as of this encounter
--- OUTSIDE RECORDS SUMMARY | 2025-08-16 09:17 | XMS_ITS | Encounter Summary ---
Author Organization [employer] ([place], [place], [place], [place]) Address [address] [place] [address] Care Team Providers Care Machine Printer Hose Name Role Phone Jay Howell MD Primary Care Provider [phone] Encounter Details Date Type Department Care Team (Late st Contact Info) Description 09/22/2020 Transcribed Document [facility] [place] [address] [place] [address] ProviderJessie MD [address] [place] [address] Social History Tobacco Use Types Packs/Day Years Used Date Smoking Tobacco: Never Assessed Comments Unknown Sex and Gender Information Value Date Recorded Sex Assigned at Not on file Legal Sex Female 7:30 PM CDT Gender Identity Not on file Sexual Orientation Not on file documented as of this encounter Miscellaneous Notes * Cerner Conversion Note - Historical ProviderMD - 09/22/2020 4:56 PM METAL MOLDER Patient: SKYLER MONTOYA Age: 79 Years Sex: [...] present starting at the level of the PORTFOLIO MANAGER. Non significant, non-flow restricting plaque noted at common femoral artery. 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 There is a significant (50-75%) stenosis of the distal PORTFOLIO MANAGER. Non significant, non-flow restricting plaque noted at DPA. PORTFOLIO MANAGER & DPA non compressible for FERNIE. TBI: Non compressible. LEFT: Abnormal arterial runoff disease present starting at the level of the PORTFOLIO MANAGER. Non significant, non-flow restricting plaque noted at common femoral artery. There is a severe (>75%) stenosis of the distal PORTFOLIO MANAGER. PORTFOLIO MANAGER & DPA non compressible for FERNIE. TBI: Non compressible. documented in this encounter Plan of Treatment Not on file documented as of this encounter Visit Diagnoses Not on filedocumented in this encounter Care Teams Machine Printer Hose Relationship Specialty Start Date End Date Jay Howell MD [address] [place] [phone] PCP - General Emergency Medicine 11/12/23 documented as of this encounter
--- OUTSIDE RECORDS SUMMARY | 2025-08-16 09:17 | XMS_ITS | Encounter Summary ---
Author Organization [employer] ([place], [place], [place], [place]) Address [address] [place] [address] Care Team Providers Care Plant Maintenance Supervisor Name Role Phone Jay Howell MD Primary Care Provider [phone] Encounter Details Date Type Department Care Team (Late st Contact Info) Description 09/04/2020 Transcribed Document [facility] [place] Family Medicine [address] [place] [address] ProviderJessie MD [address] [place] [address] Social History Tobacco Use Types Packs/Day Years Used Date Smoking Tobacco: Never Assessed Comments Unknown Sex and Gender Information Value Date Recorded Sex Assigned at Not on file Legal Sex Female 7:30 PM CDT Gender Identity Not on file Sexual Orientation Not on file documented as of this encounter Miscellaneous Notes * Cerner Conversion Note - Historical ProviderMD - 09/04/2020 4:13 AM MANAGEMENT SME ED Event Note Entered On: 09/04/2020 4:13 EST Performed On: 09/04/2020 4:13 EST by Chinyere Leonard RN ED Event Note ED Event Date/Time : 09/04/2020 2:00 EST ED Description of Event : pt arrived during system downtime; view downtime form Chinyere Leonard RN - 09/04/2020 4:13 EST Electronically signed by Sivan [facility] Conversion Potline Monitor Cerner at 02/04/2023 2:13 PM CDT documented in this encounter Plan of Treatment Not on file documented as of this encounter Visit Diagnoses Not on filedocumented in this encounter Care Teams Plant Maintenance Supervisor Relationship Specialty Start Date End Date Jay Howell MD [address] [place] [phone] PCP - General Emergency Medicine 11/12/23 documented as of this encounter
--- OUTSIDE RECORDS SUMMARY | 2025-08-16 09:17 | XMS_ITS | Encounter Summary ---
Author Organization [employer] ([place], [place], [place], [place]) Address [address] [place] [address] Care Team Providers Care Cafeteria Helper Name Role Phone Jay Howell MD Primary Care Provider [phone] Encounter Details Date Type Department Care Team (Late st Contact Info) Description 09/01/[address] [facility] [place] Family Medicine [address] [place] [address] ProviderJessie MD [address] [place] [address] Social History Tobacco Use Types Packs/Day Years Used Date Smoking Tobacco: Never Assessed Comments Unknown Sex and Gender Information Value Date Recorded Sex Assigned at Not on file Legal Sex Female 7:30 PM CDT Gender Identity Not on file Sexual Orientation Not on file documented as of this encounter Miscellaneous Notes * Cerner Conversion Note - Jessie Yuen MD - 09/01/2020 2:19 PM LANDSCAPE DRAFTER Patient Education Materials Follows: Negative Pressure Wound [...] bag. ??? Soap and water, or hand superintendent transmission. ??? Wound cleanser or salt-water solution (saline). [...] and water are not available, use hand superintendent transmission. 3. Set up a clean station for [...] and water are not available, use hand superintendent transmission. Clean your wound ??? Wear gloves, protective [...] and water are not available, use hand superintendent transmission. Apply new dressing ??? Wear gloves, protective [...] and water are not available, use hand superintendent transmission. 8. Turn the pump back on. The sponge dressing should collapse. Do not change the settings on the machine without talking to a health care provider. 9. Replace the container in the pump that collects fluid if it is full. Replace the container per the linen clerk's instructions or at least once a week, [...] clamps are open. ??? Do not use gezx-jbx-uwsnnnk medicated or antiseptic creams, sprays, liquids, or [...] 12/25/2012 Document Revised: 01/25/2020 Document Reviewed: 12/21/2019 [employer] Patient Education ? 2019 [employer] Inc. Hematology Hematoma A hematoma is a [...] health care provider. General instructions ??? Take zlvc-hqy-lelpnrq and prescription medicines only as told by [...] 05/17/2005 Document Revised: 03/08/2019 Document Reviewed: 03/08/2019 [employer] Patient Education ? 2020 [employer]. Infectious Disease Cellulitis, Adult Cellulitis is [...] these instructions at home: Medicines ??? Take ccsi-yep-xorlpgj and prescription medicines only as told by [...] 03/21/2009 Document Revised: 02/22/2019 Document Reviewed: 02/22/2019 [employer] Patient Education ? 2020 [employer]. Pharmacology What You Need to Know [...] other medicines or supplements? Many prescription and whji-spv-qdtgags medicines can interfere with warfarin. Talk with your health care provider or your pharmacist before starting or stopping any new medicines. This includes datc-vyt-ldkrgsj vitamins, dietary supplements, herbal medicines, and pain medicines. Your warfarin dosage may need to be adjusted. ??? Some common pnte-mlt-nkdxobz medicines that may increase the risk of [...] cooked. ??? Collards, raw or cooked. ??? Egyptian chard, raw or cooked. ??? Mustard greens, raw or cooked. ??? Turnip greens, raw or cooked. ??? Parsley, raw. ??? Broccoli, cooked. ??? Noodles, eggs, and spinach, enriched. ??? [place] sprouts, raw or cooked. ??? Beet greens, [...] diet. ??? You start or stop any ixih-uet-kpeglqb medicine, prescription medicine, or dietary supplement. ??? [...] 10/03/2006 Document Revised: 05/16/2018 Document Reviewed: 12/29/2016 [employer] Patient Education ? 2020 [employer]. Electronically signed by Gayle Finnegan Conversion Personal Financial Counselor Cerner at 02/04/2023 2:13 PM CDT documented in this encounter Plan of Treatment Not on file documented as of this encounter Visit Diagnoses Not on filedocumented in this encounter Care Teams Cafeteria Helper Relationship Specialty Start Date End Date Jay Howell MD [address] [place] [phone] PCP - General Emergency Medicine 11/12/23 documented as of this encounter
--- OUTSIDE RECORDS SUMMARY | 2025-08-16 09:17 | XMS_ITS | Encounter Summary ---
Author Organization [employer] ([place], [place], [place], [place]) Address [address] [place] [address] Care Team Providers Care Foundation Stage Teacher Name Role Phone Jay Howell MD Primary Care Provider [phone] Encounter Details Date Type Department Care Team (Late st Contact Info) Description 09/01/2020 Transcribed Document [facility] [address] [place] [address] ProviderJessie MD [address] [place] [address] Social History Tobacco Use Types Packs/Day Years Used Date Smoking Tobacco: Never Assessed Comments Unknown Sex and Gender Information Value Date Recorded Sex Assigned at Not on file Legal Sex Female 7:30 PM CDT Gender Identity Not on file Sexual Orientation Not on file documented as of this encounter Miscellaneous Notes * Cerner Conversion Note - Jessie Yuen MD - 09/01/2020 1:19 PM ROLL SHEETING CUTTER Final Discharge Planning Entered On: 09/01/2020 13:20 EST Performed On: 09/01/2020 13:19 EST by KAVITA PELLETIER RN-Machine Operations Supervisor Final Discharge Planning Discharge Arrangements : Patient Post-Acute Information Patient Name: SKYLER MONTOYA Gender: Female : [birth year] Age: 79 Years [place] Referral(s): Service: Organization: Business Address: Phone Number: [address], [phone] Patient Offered Choice/Affiliations Explained : [...] Services (Related/SOC within 3 days)- KAVITA PELLETIER RN-Machine Operations Supervisor - 09/01/2020 13:19 EST Final Narrative Note Final Narrative Note : INR-1.4. Pt will dc home today on Lovenox to bridge Coumadin. Orders for HH to INR sent to [facility] and hui jauregui in intake and of pt's dc home today. F/u appts scheduled with PCP, Vasc, and ID. No other CM needs noted. KAVITA PELLETIER RN-Machine Operations Supervisor - 09/01/2020 13:19 EST Electronically signed by Sivan, [facility] Conversion Termite Exterminator Cerner at 02/04/2023 2:17 PM CDT documented in this encounter Plan of Treatment Not on file documented as of this encounter Visit Diagnoses Not on filedocumented in this encounter Care Teams Foundation Stage Teacher Relationship Specialty Start Date End Date Jay Howell MD [address] [place] [phone] PCP - General Emergency Medicine 11/12/23 documented as of this encounter
--- OUTSIDE RECORDS SUMMARY | 2025-08-16 09:17 | XMS_ITS | Encounter Summary ---
Author Organization [employer] ([place], [place], [place], [place]) Address [address] [place] [address] Care Team Providers Care Health Care Analyst Name Role Phone Jay Howell MD Primary Care Provider [phone] Encounter Details Date Type Department Care Team (Late st Contact Info) Description 09/01/2020 Transcribed Document [facility] [place] [address] [place] [address] ProviderJessie MD [address] [place] [address] Social History Tobacco Use Types Packs/Day Years Used Date Smoking Tobacco: Never Assessed Comments Unknown Sex and Gender Information Value Date Recorded Sex Assigned at Not on file Legal Sex Female 7:30 PM CDT Gender Identity Not on file Sexual Orientation Not on file documented as of this encounter Miscellaneous Notes * Cerner Conversion Note - Historical ProviderMD - 09/01/2020 2:22 PM FOOD PREPARER Stroke/Warfarin Instructions Entered On: 09/01/2020 14:22 EST Performed On: 09/01/2020 14:22 EST by Kailee Velasquez RN Stroke/Warfarin Instructions Stroke/TIA Discharge Ins : N/A Warfarin Discharge Ins : N/A Kailee Vleasquez RN - 09/01/2020 14:22 EST documented in this encounter Plan of Treatment Not on file documented as of this encounter Visit Diagnoses Not on filedocumented in this encounter Care Teams Health Care Analyst Relationship Specialty Start Date End Date Jay Howell MD [address] [place] [phone] PCP - General Emergency Medicine 11/12/23 documented as of this encounter
--- OUTSIDE RECORDS SUMMARY | 2025-08-16 09:17 | XMS_ITS | Encounter Summary ---
Author Organization [employer] ([place], [place], [place], [place]) Address [address] [place] [address] Care Team Providers Care Air Force Pilot Name Role Phone Jay Howell MD Primary Care Provider [phone] Encounter Details Date Type Department Care Team (Late st Contact Info) Description 09/29/2020 Transcribed Document [facility] [place] Family Medicine [address] [place] [address] ProviderJessie MD [address] [place] [address] Social History Tobacco Use Types Packs/Day Years Used Date Smoking Tobacco: Never Assessed Comments Unknown Sex and Gender Information Value Date Recorded Sex Assigned at Not on file Legal Sex Female 7:30 PM CDT Gender Identity Not on file Sexual Orientation Not on file documented as of this encounter Miscellaneous Notes * Cerner Conversion Note - Historical ProviderMD - 09/29/2020 5:14 PM MOTION STUDY TECHNICIAN Patient: SKYLER MONTOYA Age: 79 Years [...] present starting at the level of the FOREST ECOLOGY PROFESSOR. Non significant, non-flow restricting plaque noted at common femoral artery. 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 There is a significant (50-75%) stenosis of the distal FOREST ECOLOGY PROFESSOR. Non significant, non-flow restricting plaque noted at DPA. FOREST ECOLOGY PROFESSOR & DPA non compressible for FERNIE. TBI: Non compressible. LEFT: Abnormal arterial runoff disease present starting at the level of the FOREST ECOLOGY PROFESSOR. Non significant, non-flow restricting plaque noted at common femoral artery. There is a severe (>75%) stenosis of the distal FOREST ECOLOGY PROFESSOR. FOREST ECOLOGY PROFESSOR & DPA non compressible for FERNIE. TBI: Non compressible. documented in this encounter Plan of Treatment Not on file documented as of this encounter Visit Diagnoses Not on filedocumented in this encounter Care Teams Air Force Pilot Relationship Specialty Start Date End Date Jay Howell MD [address] [place] [phone] PCP - General Emergency Medicine 11/12/23 documented as of this encounter
--- OUTSIDE RECORDS SUMMARY | 2025-08-16 09:17 | XMS_ITS | Encounter Summary ---
Author Organization [employer] ([place], [place], [place], [place]) Address [address] [place] [address] Care Team Providers Care Certified Green Building Engineer Name Role Phone Jay Howell MD Primary Care Provider [phone] Encounter Details Date Type Department Care Team (Late st Contact Info) Description 09/01/2020 Transcribed Document [facility] [place] Family Medicine [address] [place] [address] ProviderJessie MD [address] [place] [address] Social History Tobacco Use Types Packs/Day Years Used Date Smoking Tobacco: Never Assessed Comments Unknown Sex and Gender Information Value Date Recorded Sex Assigned at Not on file Legal Sex Female 7:30 PM CDT Gender Identity Not on file Sexual Orientation Not on file documented as of this encounter Miscellaneous Notes * Cerner Conversion Note - Jessie Yuen MD - 09/01/2020 9:16 AM ALUMNI RELATIONS OFFICER Patient: SKYLER MONTOYA Age: 79 years Sex: Female : 1940 Associated Diagnoses: None Author: Cheng Jennings, Idea Worker Cert Ms. Montoya is 79 yo female [...] filedocumented in this encounter Care Teams Certified Green Building Engineer Relationship Specialty Start Date End Date Jay Howell MD [address] [place] [phone] PCP - General Emergency Medicine 11/12/23 documented as of this encounter
--- OUTSIDE RECORDS SUMMARY | 2025-08-16 09:17 | XMS_ITS | Encounter Summary ---
Author Organization [employer] ([place], [place], [place], [place]) Address [address] [place] [address] Care Team Providers Care Chemical Laboratory Tester Name Role Phone Jay Howell MD Primary Care Provider [phone] Encounter Details Date Type Department Care Team (Late st Contact Info) Description 09/04/2020 Transcribed Document [facility] [place] [address] [place] [address] ProviderJessie MD [address] [place] [address] Social History Tobacco Use Types Packs/Day Years Used Date Smoking Tobacco: Never Assessed Comments Unknown Sex and Gender Information Value Date Recorded Sex Assigned at Not on file Legal Sex Female 7:30 PM CDT Gender Identity Not on file Sexual Orientation Not on file documented as of this encounter Miscellaneous Notes * Cerner Conversion Note - Jessie Yuen MD - 09/04/2020 2:10 AM HUMAN RESOURCES CONSULTANT ED Discharge Entered On: 09/04/2020 4:14 EST [...] 09/04/2020 4:14 EST Electronically signed by Sivan, [facility] Conversion Housekeeping Coordinator Cerner at 02/04/2023 2:10 PM CDT documented in this encounter Plan of Treatment Not on file documented as of this encounter Visit Diagnoses Not on filedocumented in this encounter Care Teams Chemical Laboratory Tester Relationship Specialty Start Date End Date Jay Howell MD [address] [place] [phone] PCP - General Emergency Medicine 11/12/23 documented as of this encounter
--- OUTSIDE RECORDS SUMMARY | 2025-08-16 09:17 | XMS_ITS | Encounter Summary ---
Author Organization [employer] ([place], [place], [place], [place]) Address [address] [place] [address] Care Team Providers Care Superintendent Refuse Disposal Name Role Phone Jay Howell MD Primary Care Provider [phone] Encounter Details Date Type Department Care Team (Late st Contact Info) Description 09/01/[address] [facility] [place] [address] [place] [address] ProviderJessie MD [address] [place] [address] Social History Tobacco Use Types Packs/Day Years Used Date Smoking Tobacco: Never Assessed Comments Unknown Sex and Gender Information Value Date Recorded Sex Assigned at Not on file Legal Sex Female 7:30 PM CDT Gender Identity Not on file Sexual Orientation Not on file documented as of this encounter Miscellaneous Notes * Cerner Conversion Note - Jessie Yuen MD - 09/01/2020 9:57 AM STATE DIRECTOR TARA CHEN, [address] [place] [address] Re: SKYLER MONTOYA Date of Visit: 08/25/2020 [...] is strictly prohibited. Sincerely, KAREN PUTNAM [address] [facility] [address] [place] [id number] The following document(s) were included in the letter: September 01, 2020 09:27:18 EST - (09/01/2020) Discharge Note documented in this encounter Plan of Treatment Not on file documented as of this encounter Visit Diagnoses Not on filedocumented in this encounter Care Teams Superintendent Refuse Disposal Relationship Specialty Start Date End Date Jay Howell MD [address] [place] [phone] PCP - General Emergency Medicine 11/12/23 documented as of this encounter
--- OUTSIDE RECORDS SUMMARY | 2025-08-16 09:17 | XMS_ITS | Encounter Summary ---
Author Organization [employer] ([place], [place], [place], [place]) Address [address] [place] [address] Care Team Providers Care Sales Operations Manager Name Role Phone Jay Howell MD Primary Care Provider [phone] Encounter Details Date Type Department Care Team (Late st Contact Info) Description 09/01/2020 Transcribed Document [facility] Family Medicine [address] [place] [address] ProviderJessie MD [address] [place], [place] [address] Social History Tobacco Use Types Packs/Day Years Used Date Smoking Tobacco: Never Assessed Comments Unknown Sex and Gender Information Value Date Recorded Sex Assigned at Not on file Legal Sex Female 7:30 PM CDT Gender Identity Not on file Sexual Orientation Not on file documented as of this encounter Miscellaneous Notes * Cerner Conversion Note - Jessie Yuen MD - 09/01/2020 9:47 AM FISH FROG OR OYSTER FARMER [address] , [place], [place] [id number] Patient Copy Patient Information: Name: SKYLER MONTOYA Current Date: 09/01/2020 09:47:45 : 1940 Patient Address: [address] [place] [phone] Patient Attending Physician: SARAH CONTEH MD Primary Care Provider: TARA CHEN (REF), -MED Primary Care Provider Discharge Diagnosis: Cellulitis of leg; Hematoma of left lower leg Weight on Admission: 152 lb, 0 oz Comment: Follow-up Instructions: With: Address: When: KAVITHA HIDALGO [address] [facility], [address] [place], [place] [id number] Business (1) In 2 days 09/03/2020 Comments: needs apt scheduled prior to DC With: Address: When: TARA CHEN [address] [place] [address] Business (1) Within 2 days Comments: needs INR check We have held your Aspirin per vascular surgeon, Dr. Verde. With: Address: When: KAELA ORTAKALI [facility], [address] [place] [address] Business (1) 12:30 PM Comments: F/u w/ FERNIE With: Address: When: KAELA VERDE [facility], [address] [place], [place] [phone] Business (1) 12:45 PM Comments: F/u W with Irina Troy PA-C Discharge Instructions: Immunizations Documented During Stay: No Immunizations Found Heart Failure Discharge Instructions (if any): Stroke Related Discharge Instructions (if any): Warfarin Related Discharge Instructions (if any): Final Medication List: [facility], [address] [facility] [address] [place], [place] [id number], [phone] amLODIPine (Norvasc 10 mg oral tablet) 1 [...] At Bedtime as needed for anxiety/sleep. acetaminophen-hydrocodone ([place] 7.5 mg-325 mg oral tablet) 1 Tablet(s) [...] these instructions at home: Medicines ??? Take bbcj-cfd-tvqvzpx and prescription medicines only as told by [...] 03/21/2009 Document Revised: 02/22/2019 Document Reviewed: 02/22/2019 [employer] Patient Education ? 2019 [employer]. What You Need to Know About Warfarin [...] other medicines or supplements? Many prescription and lnkx-leq-rknlyuz medicines can interfere with warfarin. Talk with your health care provider or your pharmacist before starting or stopping any new medicines. This includes glud-vkc-yglwinb vitamins, dietary supplements, herbal medicines, and pain medicines. Your warfarin dosage may need to be adjusted. ??? Some common gyoy-pub-dadesws medicines that may increase the risk of [...] you work with a diet and nutrition coordinator (dietitian). ??? Vitamin K decreases the effect [...] cooked. ??? Collards, raw or cooked. ??? [place] Timorese chard, raw or cooked. ??? Mustard greens, raw or cooked. ??? Turnip greens, raw or cooked. ??? Parsley, raw. ??? Broccoli, cooked. ??? Noodles, eggs, and spinach, enriched. ??? [place] sprouts, raw or cooked. ??? Beet greens, [...] diet. ??? You start or stop any hgwv-cad-eosgfzo medicine, prescription medicine, or dietary supplement. ??? [...] Reviewed: 12/29/2016 Elsevier Patient Education ? 2020 [employer] Inc. Hematoma A hematoma is a collection [...] health care provider. General instructions ??? Take zrcx-efd-ikpbmzn and prescription medicines only as told by [...] 05/17/2005 Document Revised: 03/08/2019 Document Reviewed: 03/08/2019 [employer] Patient Education ? 2020 [employer] Inc. CIGARETTE SMOKING: The facts are clear, cigarette smoking will shorten your life. Smoking can cause many illnesses along the way. As a healthcare provider, we recommend that you stop smoking. Assistance with quitting is available by contacting 1-973-CJFR-NOW. This is a free resource providing counseling, [...] Be sure to sign up for the [employer] patient portal, which gives you 09/05 access to your medical information ??? including these discharge instructions ??? using your computer, smartphone, or tablet. Just go to [employer]oup to get started. Questions? Call . [facility] would like to thank you for allowing us to assist you with your healthcare needs. MICHELE Skaggs JUDY D, (or car sales representative) have received the above patient education materials/instructions and have verbalized understanding: Patient Signature _ Date/Time Patient Wheelchair Van Operator First Responder Signature (if needed) Date/Time Clinician/Hospital Wheelchair Van Operator First Responder Signature (if needed) Date/Time Electronically signed by Interface, [facility] Conversion Die Stamping Press Operator Cerner at 02/04/2023 2:01 PM CDT documented in this encounter Plan of Treatment Not on file documented as of this encounter Visit Diagnoses Not on filedocumented in this encounter Care Teams Sales Operations Manager Relationship Specialty Start Date End Date Jay Howell MD [address] [place] [phone] PCP - General Emergency Medicine 11/12/23 documented as of this encounter
--- OUTSIDE RECORDS SUMMARY | 2025-08-16 09:17 | XMS_ITS | Encounter Summary ---
Author Organization [employer] ([place], [place], [place], [place]) Address [address] [place] [address] Care Team Providers Care Delivery Technician Name Role Phone Jay Howell MD Primary Care Provider [phone] Encounter Details Date Type Department Care Team (Late st Contact Info) Description 09/08/2020 Transcribed Document [facility] [place] [address] [place] [address] ProviderJessie MD [address] [place] [address] Social History Tobacco Use Types Packs/Day Years Used Date Smoking Tobacco: Never Assessed Comments Unknown Sex and Gender Information Value Date Recorded Sex Assigned at Not on file Legal Sex Female 7:30 PM CDT Gender Identity Not on file Sexual Orientation Not on file documented as of this encounter Miscellaneous Notes * Cerner Conversion Note - Jessie Yuen MD - 09/08/2020 5:17 PM ELECTRICAL CAD TECHNICIAN Patient: SKYLER MONTOYA Age: 79 Years Sex: Female : 1940 Reason for Consultation LEFT LE wound History of Present Illness Ms. Montoya is an 79 year-old female who presents to the [facility] for f/u after recent hospitalization. She has [...] CHEN (REF), -MED Attending Physician - VITA SWETE PA Admitting Physician - VITA SWEET PA Referring Physician - VITA SWEET PA Problem List/Past Medical History HTN HLD CAD A-FIB on Coumadin COPD DM GERD h/o sleep apnea h/o PE Procedure/Surgical History 08/26/2020 ([facility]; [facility]) - Aortogram with LEFT lower extremity run-off - LEFT PT angioplasty ([id number] [employer]) - LEFT peroneal angioplasty (2.5-4e509nm [employer]) - LEFT leg debridement Other: - [...] No labs to review Electronically signed by [facility] Conversion Sawsmith Cerner at 02/04/2023 1:55 PM CDT documented in this encounter Plan of Treatment Not on file documented as of this encounter Visit Diagnoses Not on filedocumented in this encounter Care Teams Delivery Technician Relationship Specialty Start Date End Date Jay Howell MD [address] [place] [phone] PCP - General Emergency Medicine 11/12/23 documented as of this encounter
--- OUTSIDE RECORDS SUMMARY | 2025-08-16 09:17 | XMS_ITS | Encounter Summary ---
Author Organization [employer] ([place], [place], [place], [place]) Address [address] [place] [address] Care Team Providers Care Inspector Optical Instrument Name Role Phone Jay Howell MD Primary Care Provider [phone] Encounter Details Date Type Department Care Team (Late st Contact Info) Description 09/04/2020 Transcribed Document [facility] [place] Family Medicine [address] [place] [address] ProviderJessie MD [address] [place] [address] Social History Tobacco Use Types Packs/Day Years Used Date Smoking Tobacco: Never Assessed Comments Unknown Sex and Gender Information Value Date Recorded Sex Assigned at Not on file Legal Sex Female 7:30 PM CDT Gender Identity Not on file Sexual Orientation Not on file documented as of this encounter Miscellaneous Notes * Cerner Conversion Note - Jessie ProviderMD - 09/04/2020 4:04 AM COMPUTATOR ED Triage Entered On: 09/04/2020 4:13 EST Performed On: 09/04/2020 1:51 EST by Chinyere Leonard RN ED Triage Across the Room Chief Complaint : see downtime triage form Triage Date/Time : 09/04/2020 1:51 EST Chinyere Leonard RN - 09/04/2020 4:12 EST DCP GENERIC CODE Tracking Acuity : 4 - Non - Urgent Tracking Group : [facility] ED Chinyere Leonard RN - 09/04/2020 4:12 EST Mode of Arrival : Ambulatory Transported to ED by : Private vehicle To Room Via : Ambulate Accompanied By : Spouse Height & Weight : Document ED Allergies : Document ED Reason for Visit : Document Tetanus Immunization : Less than 5 years Creative Resource Manager Needed : No Chinyere Leonard RN - [...] 04:13:26 EST) Problems(Active) Apnea, sleep (SNOMED CT :499246227 ) Name of Problem: Apnea, sleep ; Recorder: JUAN LUIS GIL RN; Confirmation: Confirmed ; Classification: Medical ; Code: 813818080 ; Contributor System: [email or web address] ; Last Updated: 11/12/2014 10:12 EST ; Life Cycle Date: 11/12/2014 ; Life Cycle Status: Active ; Vocabulary: SNOMED CT Arthritis (SNOMED CT :7820988 ) Name of Problem: Arthritis ; Recorder: KENYON CHAMBERS RN; Confirmation: Confirmed ; Classification: Medical ; Code: 2803216 ; Contributor System: PowerChart ; Last Updated: 04/10/2016 8:04 EDT ; Life Cycle Date: 08/13/2013 ; Life Cycle Status: Active ; Vocabulary: SNOMED CT Atrial fibrillation with RVR (SNOMED CT :6350734687 ) Name of Problem: Atrial fibrillation with RVR ; Recorder: SANG RICO APRN; Confirmation: Confirmed ; Classification: Medical ; Code: 5264260859 ; Contributor System: PowerChart ; Last Updated: 04/10/2016 8:05 EDT ; Life Cycle Date: 04/10/2016 ; Life Cycle Status: Active ; Responsible Provider: SANG RICO APRN; Vocabulary: SNOMED CT Blood clot (SNOMED CT :801405186 ) Name of Problem: Blood clot ; Recorder: KENYON CHAMBERS RN; Confirmation: Confirmed ; Classification: Patient Stated ; Code: 657851435 ; Contributor System: PowerChart ; Last Updated: [...] Vocabulary: Patient Care Chest pain (SNOMED CT :51018071 ) Name of Problem: Chest pain ; Recorder: SANG RICO APRN; Confirmation: Complaint of ; Classification: Medical ; Code: 96554520 ; Contributor System: PowerChart ; Last Updated: 04/10/2016 8:05 EDT ; Life Cycle Status: Active ; Responsible Provider: SANG RICO APRN; Vocabulary: SNOMED CT Chronic anticoagulation (SNOMED CT :454161436 ) Name of Problem: Chronic anticoagulation ; Recorder: SANG RICO APRN; Confirmation: Confirmed ; Classification: Medical ; Code: 001187413 ; Contributor System: PowerChart ; Last Updated: 04/10/2016 8:05 EDT ; Life Cycle Date: 04/10/2016 ; Life Cycle Status: Active ; Responsible Provider: SANG RICO APRN; Vocabulary: SNOMED CT Clotting disorder (SNOMED CT :639195762 ) Name of Problem: Clotting disorder ; Recorder: KENYON CHAMBERS RN; Confirmation: Confirmed ; Classification: Patient Stated ; Code: 324202674 ; Contributor System: PowerChart ; Last Updated: 03/28/2014 19:29 EDT ; Life Cycle Date: 08/13/2013 ; Life Cycle Status: Active ; Vocabulary: SNOMED CT COPD (SNOMED CT :01033919 ) Name of Problem: COPD ; Recorder: KENYON CHAMBERS RN; Confirmation: Confirmed ; Classification: Medical ; Code: 90914774 ; Contributor System: PowerChart ; Last Updated: 04/10/2016 8:03 EDT ; Life Cycle Date: 08/13/2013 ; Life Cycle Status: Active ; Vocabulary: SNOMED CT Coronary artery disease (SNOMED CT :1192701872 ) Name of Problem: Coronary artery disease ; Recorder: KENYON CHAMBERS RN; Confirmation: Confirmed ; Classification: Medical ; Code: 9249927702 ; Contributor System: PowerChart ; Last Updated: 04/10/2016 8:03 EDT ; Life Cycle Date: 08/13/2013 ; Life Cycle Status: Active ; Vocabulary: SNOMED CT Diabetes mellitus (SNOMED CT :071860759 ) Name of Problem: Diabetes mellitus ; Recorder: KENYON CHAMBERS RN; Confirmation: Confirmed ; Classification: Medical ; Code: 292291013 ; Contributor System: PowerChart ; Last Updated: 04/10/2016 8:04 EDT ; Life Cycle Date: 08/13/2013 ; Life Cycle Status: Active ; Vocabulary: SNOMED CT Emphysema (SNOMED CT :244086231 ) Name of Problem: Emphysema ; Recorder: JUAN LUIS GIL RN; Confirmation: Confirmed ; Classification: Medical ; Code: 979145118 ; Contributor System: PowerChart ; Last Updated: 11/12/2014 10:11 EST ; Life Cycle Date: 11/12/2014 ; Life Cycle Status: Active ; Vocabulary: SNOMED CT GERD - Gastro-esophageal reflux disease (SNOMED CT :2141502722 ) Name of Problem: GERD - Gastro-esophageal reflux disease ; Recorder: KENYON CHAMBERS RN; Confirmation: Confirmed ; Classification: Medical ; Code: 0131182835 ; Contributor System: PowerChart ; Last Updated: [...] Patient Care High blood pressure (SNOMED CT :79158168 ) Name of Problem: High blood pressure ; Recorder: KENYON CHAMBERS RN; Confirmation: Confirmed ; Classification: Medical ; Code: 25376458 ; Contributor System: PowerChart ; Last Updated: 04/10/2016 8:03 EDT ; Life Cycle Date: 08/13/2013 ; Life Cycle Status: Active ; Vocabulary: SNOMED CT History of obstructive sleep apnea (IMO :14044459 ) Name of Problem: History of obstructive sleep apnea ; Recorder: SYSTEM, SYSTEM; Confirmation: Confirmed ; Classification: Medical ; Code: 74738363 ; Last Updated: 08/25/2020 18:21 EST ; Life Cycle Date: 08/25/2020 ; Life Cycle Status: Active ; Vocabulary: IMO Hx of pulmonary embolus (SNOMED CT :308562186 ) Name of Problem: Hx of pulmonary embolus ; Recorder: SANG RICO APRN; Confirmation: Confirmed ; Classification: Medical ; Code: 099844743 ; Contributor System: PowerChart ; Last Updated: 04/10/2016 8:05 EDT ; Life Cycle Date: 04/10/2016 ; Life Cycle Status: Active ; Responsible Provider: SANG RICO APRN; Vocabulary: SNOMED CT Hyperlipidemia (SNOMED CT :34784998 ) Name of Problem: Hyperlipidemia ; Recorder: KENYON CHAMBERS RN; Confirmation: Confirmed ; Classification: Medical ; Code: 98862378 ; Contributor System: PowerChart ; Last Updated: 04/10/2016 8:03 EDT ; Life Cycle Date: 08/13/2013 ; Life Cycle Status: Active ; Vocabulary: SNOMED CT Multiple renal cysts (SNOMED CT :126004058 ) Name of Problem: Multiple renal cysts ; Recorder: KENYON CHAMBERS RN; Confirmation: Confirmed ; Classification: Medical ; Code: 387415279 ; Contributor System: [email or web address] ; Last Updated: 04/10/2016 8:04 EDT ; Life Cycle Date: 08/13/2013 ; Life Cycle Status: Active ; Vocabulary: SNOMED CT Stented coronary artery (SNOMED CT :5337925414 ) Name of Problem: Stented coronary artery ; Recorder: KENYON CHAMBERS RN; Confirmation: Confirmed ; Classification: Medical ; Code: 1830747108 ; Contributor System: [email or web address] ; Last Updated: 04/10/2016 8:03 EDT ; Life Cycle Date: 08/13/2013 ; Life Cycle Status: Active ; Vocabulary: SNOMED CT Diagnoses(Active) Wound drain evaluation Date: 09/04/2020 ; Diagnosis Type: Reason For Visit ; Confirmation: Complaint of ; Clinical Dx: Wound drain evaluation ; Classification: Medical ; Clinical Service: Non-Specified ; Code: PNED ; Probability: 0 ; Diagnosis Code: [id number] ED Height and Weight Height Source : Stated Height Entry Format : [place] Height, Feet : 5 ft(Converted to: 152 cm, 60 Inch) Height, Inches : 4 Inch(Converted to: 0 ft 4 Inch, 10.16 cm) Clinical Height : 162.56 cm Weight Source, ED : Critical estimated dosing weight Weight Entry Format : [place] Weight, Pounds : 152 lb Clinical Dosing Weight : 69.09 kg Body Surface Area (BSA) : 1.74 m2 Body Mass Index : 26.1 kg/m2 (HI) [place] Body Weight (IBW) : 54.3 kg Chinyere Leonard RN - 09/04/2020 4:12 EST documented in this encounter Plan of Treatment Not on file documented as of this encounter Visit Diagnoses Not on filedocumented in this encounter Care Teams Inspector Optical Instrument Relationship Specialty Start Date End Date Jay Howell MD [address] [place] [phone] PCP - General Emergency Medicine 11/12/23 documented as of this encounter
--- OUTSIDE RECORDS SUMMARY | 2025-08-16 09:18 | XMS_ITS | Encounter Summary ---
Author Organization [employer] ([place], [place], [place], [place]) Address [address] [place] [address] Care Team Providers Care Sub Acute Care Nurse Name Role Phone Jay Howell MD Primary Care Provider [phone] Encounter Details Date Type Department Care Team (Late st Contact Info) Description 12/12/2018 Transcribed Document [facility] [place] Medicine [address] [place] [address] ProviderJessie MD [address] [place] [address] Social History Tobacco Use Types Packs/Day Years Used Date Smoking Tobacco: Never Assessed Comments Unknown Sex and Gender Information Value Date Recorded Sex Assigned at Not on file Legal Sex Female 7:30 PM CDT Gender Identity Not on file Sexual Orientation Not on file documented as of this encounter Miscellaneous Notes * Cerner Conversion Note - Historical ProviderMD - 12/12/2018 9:44 PM APPLIANCE MECHANIC Patient: SKYLER MONTOYA Age: 77 years Sex: [...] L arm. reports seen bt card in [place] for same earlier this week, reports she [...] and was advised to follow-up with her cashier credit. She had labs done this morning, but [...] wants to go home and see her cashier credit tomorrow. Review of Systems Additional review of [...] normal sinus rhythm, No ST changes, normal TN & QRS intervals, EP Interp. Results review: [...] % 36.4 % Lymph # 2.22 x10(3)/uL [place] % 10.7 % HI [place] # 0.65 K/uL Eos % 0.0 % [...] evaluation at any time. Advised follow-up with cashier credit in the morning and return to the closest ER for any recurrence or worsening of symptoms.. Impression and Plan Diagnosis Chest pain - Discharge, Medical Plan Condition: Stable. Patient was given the following educational materials: Angina Pectoris. Follow up with: TARA CHEN Within 2 to 3 days; Follow-up with your cashier credit in the morning. Return to the closest emergency department for any acute new concerns or recurrence of symptoms. Within in AM. Counseled: Patient, Family, Regarding diagnosis, Regarding diagnostic results, Regarding treatment plan, Patient indicated understanding of instructions. Electronically signed by Gayle Finnegan Conversion Bookkeeping Machine Operator Cerner at 02/04/2023 2:02 PM CDT documented in this encounter Plan of Treatment Not on file documented as of this encounter Visit Diagnoses Not on filedocumented in this encounter Care Teams Sub Acute Care Nurse Relationship Specialty Start Date End Date Jay Howell MD [address] [place] [phone] PCP - General Emergency Medicine 11/12/23 documented as of this encounter
--- OUTSIDE RECORDS SUMMARY | 2025-08-16 09:18 | XMS_ITS | Encounter Summary ---
Author Organization [employer] ([place], [place], [place], [place]) Address [address] [place] [address] Care Team Providers Care Digital Performance Analyst Name Role Phone Jay Howell MD Primary Care Provider [phone] Encounter Details Date Type Department Care Team (Late st Contact Info) Description 03/19/2021 Transcribed Document [facility] [place] [facility] [place] [address] ProviderJessie MD [address] [place], [place] [address] Social History Tobacco Use Types Packs/Day Years [...] the form. Electronically signed by Sivan, [facility] Conversion Patient Care Technician Instructor Cerner at 02/04/2023 2:13 PM CDT documented in this encounter Plan of Treatment Not on file documented as of this encounter Visit Diagnoses Not on filedocumented in this encounter Care Teams Digital Performance Analyst Relationship Specialty Start Date End Date Jay Howell MD [address] [place] [phone] PCP - General Emergency Medicine 11/12/23 documented as of this encounter
--- OUTSIDE RECORDS SUMMARY | 2025-08-16 09:18 | XMS_ITS | Encounter Summary ---
Author Organization [employer] ([place], [place], [place], [place]) Address [address] [place] [address] Care Team Providers Care Mounting Machine Operator Name Role Phone Jay Howell MD Primary Care Provider [phone] Encounter Details Date Type Department Care Team (Late st Contact Info) Description 12/12/2018 Transcribed Document [facility] [place] Medicine [address] [place] [address] ProviderJessie MD [address] [place] [address] Social History Tobacco Use Types Packs/Day Years Used Date Smoking Tobacco: Never Assessed Comments Unknown Sex and Gender Information Value Date Recorded Sex Assigned at Not on file Legal Sex Female 7:30 PM CDT Gender Identity Not on file Sexual Orientation Not on file documented as of this encounter Miscellaneous Notes * Cerner Conversion Note - Historical ProviderMD - 12/12/2018 8:58 PM HEAVY FORGING MACHINE OPERATOR ED Triage Entered On: 12/12/2018 21:20 EST Performed On: 12/12/2018 21:18 EST by LUCINDA FOFANA RN ED Triage Across the Room Triage Date/Time : 12/12/2018 21:18 EST Chief Complaint : pt c/o mscp x 2 hours rad to neck & L arm. reports seen bt card in [place] for same earlier this week, reports she needs a cath LUCINDA FOFANA RN - 12/12/2018 21:18 EST DCP GENERIC CODE Tracking Acuity : 2 - Emergent Tracking Group : [facility] ED LUCINDA FOFANA RN - 12/12/2018 21:18 EST Mode of Arrival : Ambulatory Transported to ED by : Private vehicle To Room Via : Ambulate Accompanied By : Friend ED Vital Signs : Document Height & Weight : Document ED Allergies : Document ED Reason for Visit : Document Tetanus Immunization : Less than 5 years LUICNDA FOFANA RN - 12/12/2018 21:18 EST Infectious [...] 21:20:38 EST) Problems(Active) Apnea, sleep (SNOMED CT :538900437 ) Name of Problem: Apnea, sleep ; Recorder: JUAN LUIS GIL RN; Confirmation: Confirmed ; Classification: Medical ; Code: 688012761 ; Contributor System: PowerChart ; Last Updated: 11/12/2014 10:12 EST ; Life Cycle Date: 11/12/2014 ; Life Cycle Status: Active ; Vocabulary: SNOMED CT Arthritis (SNOMED CT :1854276 ) Name of Problem: Arthritis ; Recorder: KENYON CHAMBERS RN; Confirmation: Confirmed ; Classification: Medical ; Code: 7647238 ; Contributor System: PowerChart ; Last Updated: 04/10/2016 8:04 EDT ; Life Cycle Date: 08/13/2013 ; Life Cycle Status: Active ; Vocabulary: SNOMED CT Atrial fibrillation with RVR (SNOMED CT :6012154751 ) Name of Problem: Atrial fibrillation with RVR ; Recorder: SANG RICO APR; Confirmation: Confirmed ; Classification: Medical ; Code: 0049767341 ; Contributor System: PowerChart ; Last Updated: 04/10/2016 8:05 EDT ; Life Cycle Date: 04/10/2016 ; Life Cycle Status: Active ; Responsible Provider: SANG RICO APR; Vocabulary: SNOMED CT Blood clot (SNOMED CT :098792559 ) Name of Problem: Blood clot ; Recorder: KENYON CHAMBERS RN; Confirmation: Confirmed ; Classification: Patient Stated ; Code: 162595407 ; Contributor System: PowerChart ; Last Updated: [...] Vocabulary: Patient Care Chest pain (SNOMED CT :74428013 ) Name of Problem: Chest pain ; Recorder: SANG RICO APR; Confirmation: Complaint of ; Classification: Medical ; Code: 23469600 ; Contributor System: PowerChart ; Last Updated: 04/10/2016 8:05 EDT ; Life Cycle Status: Active ; Responsible Provider: SANG RICO APR; Vocabulary: SNOMED CT Chronic anticoagulation (SNOMED CT :890935735 ) Name of Problem: Chronic anticoagulation ; Recorder: SANG RICO APR; Confirmation: Confirmed ; Classification: Medical ; Code: 643099080 ; Contributor System: PowerChart ; Last Updated: 04/10/2016 8:05 EDT ; Life Cycle Date: 04/10/2016 ; Life Cycle Status: Active ; Responsible Provider: SANG RICO APR; Vocabulary: SNOMED CT Clotting disorder (SNOMED CT :604767091 ) Name of Problem: Clotting disorder ; Recorder: KENYON CHAMBERS RN; Confirmation: Confirmed ; Classification: Patient Stated ; Code: 944478600 ; Contributor System: PowerChart ; Last Updated: 03/28/2014 19:29 EDT ; Life Cycle Date: 08/13/2013 ; Life Cycle Status: Active ; Vocabulary: SNOMED CT COPD (SNOMED CT :98186772 ) Name of Problem: COPD ; Recorder: KENYON CHAMBERS RN; Confirmation: Confirmed ; Classification: Medical ; Code: 91611932 ; Contributor System: PowerChart ; Last Updated: 04/10/2016 8:03 EDT ; Life Cycle Date: 08/13/2013 ; Life Cycle Status: Active ; Vocabulary: SNOMED CT Coronary artery disease (SNOMED CT :2507623486 ) Name of Problem: Coronary artery disease ; Recorder: KENYON CHAMBERS RN; Confirmation: Confirmed ; Classification: Medical ; Code: 0050824013 ; Contributor System: PowerChart ; Last Updated: 04/10/2016 8:03 EDT ; Life Cycle Date: 08/13/2013 ; Life Cycle Status: Active ; Vocabulary: SNOMED CT Diabetes mellitus (SNOMED CT :402293560 ) Name of Problem: Diabetes mellitus ; Recorder: KENYON CHAMBERS RN; Confirmation: Confirmed ; Classification: Medical ; Code: 891350686 ; Contributor System: PowerChart ; Last Updated: 04/10/2016 8:04 EDT ; Life Cycle Date: 08/13/2013 ; Life Cycle Status: Active ; Vocabulary: SNOMED CT Emphysema (SNOMED CT :570398774 ) Name of Problem: Emphysema ; Recorder: JUAN LUIS GIL RN; Confirmation: Confirmed ; Classification: Medical ; Code: 470637870 ; Contributor System: PowerChart ; Last Updated: 11/12/2014 10:11 EST ; Life Cycle Date: 11/12/2014 ; Life Cycle Status: Active ; Vocabulary: SNOMED CT GERD - Gastro-esophageal reflux disease (SNOMED CT :4621835526 ) Name of Problem: GERD - Gastro-esophageal reflux disease ; Recorder: KENYON CHAMBERS RN; Confirmation: Confirmed ; Classification: Medical ; Code: 6870936271 ; Contributor System: PowerChart ; Last Updated: [...] Patient Care High blood pressure (SNOMED CT :23272823 ) Name of Problem: High blood pressure ; Recorder: KENYON CHAMBERS RN; Confirmation: Confirmed ; Classification: Medical ; Code: 30771642 ; Contributor System: [employer] Real KitchensChart ; Last Updated: 04/10/2016 8:03 EDT ; Life Cycle Date: 08/13/2013 ; Life Cycle Status: Active ; Vocabulary: SNOMED CT Hx of pulmonary embolus (SNOMED CT :041414157 ) Name of Problem: Hx of pulmonary embolus ; Recorder: SANG RICO APR; Confirmation: Confirmed ; Classification: Medical ; Code: 777636195 ; Contributor System: PowerChart ; Last Updated: 04/10/2016 8:05 EDT ; Life Cycle Date: 04/10/2016 ; Life Cycle Status: Active ; Responsible Provider: SANG RICO APR; Vocabulary: SNOMED CT Hyperlipidemia (SNOMED CT :90888358 ) Name of Problem: Hyperlipidemia ; Recorder: KENYON CHAMBERS RN; Confirmation: Confirmed ; Classification: Medical ; Code: 18186361 ; Contributor System: PowerChart ; Last Updated: 04/10/2016 8:03 EDT ; Life Cycle Date: 08/13/2013 ; Life Cycle Status: Active ; Vocabulary: SNOMED CT Multiple renal cysts (SNOMED CT :325416763 ) Name of Problem: Multiple renal cysts ; Recorder: KENYON CHAMBERS RN; Confirmation: Confirmed ; Classification: Medical ; Code: 559311362 ; Contributor System: PowerChart ; Last Updated: 04/10/2016 8:04 EDT ; Life Cycle Date: 08/13/2013 ; Life Cycle Status: Active ; Vocabulary: SNOMED CT Stented coronary artery (SNOMED CT :8983215985 ) Name of Problem: Stented coronary artery ; Recorder: KENYON CHAMBERS RN; Confirmation: Confirmed ; Classification: Medical ; Code: 1659941436 ; Contributor System: PowerChart ; Last Updated: 04/10/2016 8:03 EDT ; Life Cycle Date: 08/13/2013 ; Life Cycle Status: Active ; Vocabulary: SNOMED CT UTI - Urinary tract infection (SNOMED CT :5948144592 ) Name of Problem: UTI - Urinary tract infection ; Recorder: KENYON CHAMBERS RN; Confirmation: Confirmed ; Classification: Medical ; Code: 9173381757 ; Contributor System: PowerChart ; Last Updated: 04/10/2016 8:04 EDT ; Life Cycle Date: 08/13/2013 ; Life Cycle Status: Active ; Vocabulary: SNOMED CT Diagnoses(Active) Chest pain Date: 12/12/2018 ; Diagnosis Type: Reason For Visit ; Confirmation: Complaint of ; Clinical Dx: Chest pain ; Classification: Medical ; Clinical Service: Emergency medicine ; Code: PNED ; Probability: 0 ; Diagnosis Code: [id number] ED Height and Weight Height Source : Stated Height Entry Format : [place] Height, Feet : 5 ft(Converted to: 152 cm, 60 Inch) Height, Inches : 3 Inch(Converted to: 0 ft 3 Inch, 7.62 cm) Clinical Height : 160.02 cm Weight Source, ED : Standing scale Weight Entry Format : [place] Weight, Pounds : 161.7 lb Clinical Dosing Weight : 73.5 kg Body Surface Area (BSA) : 1.77 m2 Body Mass Index : 28.7 kg/m2 (HI) [place] Body Weight (IBW) : 52.02 kg LUCINDA FOFANA RN - 12/12/2018 21:18 EST Electronically signed by Sivan, [facility] Conversion Switch Operators Supervisor Cerner at 02/04/2023 1:58 PM CDT documented in this encounter Plan of Treatment Not on file documented as of this encounter Visit Diagnoses Not on filedocumented in this encounter Care Teams Mounting Machine Operator Relationship Specialty Start Date End Date Jay Howell MD [address] [place] [phone] PCP - General Emergency Medicine 11/12/23 documented as of this encounter
--- OUTSIDE RECORDS SUMMARY | 2025-08-16 09:18 | XMS_ITS | Encounter Summary ---
Author Organization [employer] ([place], [place], [place], [place]) Address [address] [place] [address] Care Team Providers Care Travel Information Center Supervisor Name Role Phone Jay Howell MD Primary Care Provider [phone] Encounter Details Date Type Department Care Team (Late st Contact Info) Description 07/18/2021 Transcribed Document [facility] [place] Family Medicine [address] [place] [address] ProviderJessie MD [address] [place] [phone] Social History Tobacco Use Types Packs/Day Years [...] filedocumented in this encounter Care Teams Travel Information Center Supervisor Relationship Specialty Start Date End Date Jay Howell MD [address] [place] [phone] PCP - General Emergency Medicine 11/12/23 documented as of this encounter
--- OUTSIDE RECORDS SUMMARY | 2025-08-16 09:18 | XMS_ITS | Encounter Summary ---
Author Organization [employer] ([place], [place], [place], [place]) Address [address] [place] [address] Care Team Providers Care Critical Care Unit Nurse Name Role Phone Jay Howell MD Primary Care Provider [phone] Encounter Details Date Type Department Care Team (Late st Contact Info) Description 12/12/2018 Transcribed Document [facility] [place] [address] [place] [address] ProviderJessie MD [address] [place] [address] Social History Tobacco Use Types [...] - Historical ProviderMD - 12/12/2018 10:41 PM CAMPAIGN MANAGEMENT SENIOR MANAGER [address] [place], [place] [id number] PERSON INFORMATION Name SKYLER MONTOYA Age 77 Years 1940 Sex Female Language Rwandan PCP TARA CHEN (REF), -MED Marital Status Med Service Emergency Medicine Acct# Arrival 12/12/2018 20:58:00 Visit Reason Chest pain; CHEST PAIN FOR LAST 2HRS Acuity 2 - Emergent LOS 000 01:43 Depart Date: 02/26/19 10:41 PM Address: [place] [address] Comment: PROVIDER INFORMATION Provider Role Assigned Unassigned [...] please contact the Patient Resource Center at [phone]. With: Address: When: Follow-up with your bracelet and brooch maker in the morning. Return to the closest [...] on filedocumented in this encounter Care Teams Critical Care Unit Nurse Relationship Specialty Start Date End Date Jay Howell MD [address] [place] [address] PCP - General Emergency Medicine 11/12/23 documented as of this encounter
--- OUTSIDE RECORDS SUMMARY | 2025-08-16 09:18 | XMS_ITS | Encounter Summary ---
Author Organization [employer] ([place], [place], [place], [place]) Address [address] [place] [address] Care Team Providers Care Tar Leveler Name Role Phone Jay Howell MD Primary Care Provider [phone] Encounter Details Date Type Department Care Team (Late st Contact Info) Description 03/19/2021 Transcribed Document [facility] [place] Family Medicine [facility] [place] [address] ProviderJessie MD [address] [place] [address] Social History Tobacco Use Types Packs/Day Years [...] 2. Calcification of the vertebral origins with zlni-lx-rmgbjipg stenosis. 3. Extensive vascular calcification. 4. Severe [...] difficult. The CTA also shows bilateral proximal BOSS MINER stenoses. The differential could include one or [...] filedocumented in this encounter Care Teams Tar Leveler Relationship Specialty Start Date End Date Jay Howell MD [address] [place] [phone] PCP - General Emergency Medicine 11/12/23 documented as of this encounter
--- OUTSIDE RECORDS SUMMARY | 2025-08-16 09:18 | XMS_ITS | Encounter Summary ---
Author Organization [employer] ([place], [place], [place], [place]) Address [address] [place] [address] Care Team Providers Care Crop Research Scientist Name Role Phone Jay Howell MD Primary Care Provider [phone] Encounter Details Date Type Department Care Team (Late st Contact Info) Description 03/19/2021 Transcribed Document [facility] [place] [address] [place] [address] ProviderJessie MD [address] [place], [place] [address] Social History Tobacco Use Types Packs/Day Years [...] on filedocumented in this encounter Care Teams Crop Research Scientist Relationship Specialty Start Date End Date Jay Howell MD [address] [place] [phone] PCP - General Emergency Medicine 11/12/23 documented as of this encounter
--- OUTSIDE RECORDS SUMMARY | 2025-08-16 09:18 | XMS_ITS | Encounter Summary ---
Author Organization [employer] ([place], [place], [place], [place]) Address [address] [place] [address] Care Team Providers Care Soda Fountain Clerk Name Role Phone Jay Howell MD Primary Care Provider [phone] Encounter Details Date Type Department Care Team (Late st Contact Info) Description 03/19/2021 Transcribed Document [facility] [place] [address] [place] [address] ProviderJessie MD [address] [place] [address] [phone] Social History Tobacco Use Types Packs/Day Years [...] 2. Calcification of the vertebral origins with kirt-eu-qwdsboeg stenosis. 3. Extensive vascular calcification. 4. Severe [...] up with hand surgery next week, her attendant honor bar in 2-4 weeks and neurologist 4-8 weeks. [...] Comer or Anabell on March 23 or [facility] - Within 6 weeks Discharge Medications [...] 03/17/21 10:56:00 EDT, Cardiac Diet, 60 gm carbs:[id number] george, Isolation: Standard Precautions, Instructions: Diabetic Diet Patient Discharge Summary Orders Discharge Follow Up Instructions: Follow Up Instructions: f/u Dr. Comer or Anabell ( Hand Surgery) on d/c. [phone] Activity: Discharge Activity: Activity as tolerated Diet: [...] on filedocumented in this encounter Care Teams Soda Fountain Clerk Relationship Specialty Start Date End Date Jay Howell MD [address] [place] [phone] PCP - General Emergency Medicine 11/12/23 documented as of this encounter
--- OUTSIDE RECORDS SUMMARY | 2025-08-16 09:18 | XMS_ITS | Encounter Summary ---
Author Organization [employer] ([place], [place], [place], [place]) Address [address] [place] [address] Care Team Providers Care Gripper Machine Operator Name Role Phone Jay Howell MD Primary Care Provider [phone] Encounter Details Date Type Department Care Team (Late st Contact Info) Description 03/19/2021 Transcribed Document [facility] [place] Medicine [address] [place] [address] ProviderJessie MD [address] [place] [address] Social History Tobacco Use Types Packs/Day Years [...] on filedocumented in this encounter Care Teams Gripper Machine Operator Relationship Specialty Start Date End Date Jay Howell MD [address] [place] [phone] PCP - General Emergency Medicine 11/12/23 documented as of this encounter
--- OUTSIDE RECORDS SUMMARY | 2025-08-16 09:18 | XMS_ITS | Clinical Summary ---
Author Organization [facility] Address [address] [place] [address] Phone Care Team Providers Care Non Destructive Testing Technician Name Role Phone Smita ESCOBEDO, Jorje Arceo [phone] [ ] Conditions or Problems Problem Name Problem Code Onset Date Status Entry Date Provider Comment Standard Description Annotate Contusion of left lower leg, subsequent encounter(s) S80.12xD (ICD-10-CM) Active Arlen Feng Contusion of left lower leg, subsequent encounter Cellulitis of LLE L03.116 (ICD-10-CM) Active Arlen Feng Cellulitis of left lower limb DM II with diabetic PVD 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 (SNOMED CT) Active Arlen Feng Peripheral vascular disease Benign Essential Hypertension 4861769 (SNOMED CT) Active Arlen Feng Benign essential hypertension Medications Medication Instructions Start Date Stop Date Generic Name [facility] Provider VALSARTAN 160 MG TABS 1 tablet po daily VALSARTAN 22747513846 Leti Dela Cruz ALPRAZOLAM 0.5 MG TABS Take one by mouth daily/PRN ALPRAZOLAM 78643381119 Lexi Nascimentodox VIBRAMYCIN 100 MG ORAL CAPSULE Take by mouth twice a day DOXYCYCLINE HYCLATE 76262227344 Lexi Gipson TERBINAFINE HCL 250 MG TABS Take one by mouth daily TERBINAFINE HCL 92826662139 Lexi Gipson RANEXA 1000 MG ORAL TABLET EXTENDED RELEASE 12 HOUR Take by mouth twice a day RANOLAZINE 36422647264 Lexi Gipson CLOPIDOGREL BISULFATE 75 MG TABS Take one by mouth daily CLOPIDOGREL BISULFATE 93645954057 Lexi Nascimentodox OMEPRAZOLE 40 MG CPDR Take one by mouth daily OMEPRAZOLE 26341598581 Lexi Nascimentodox NORVASC 10 MG TABS Take one by mouth daily AMLODIPINE BESYLATE 37105018401 Lexi Nascimentodox HYDROCODONE-ACET AMINOPHEN 7.5-325 MG TABS Q6H/PRN HYDROCODONE-ACET AMINOPHEN 04227385509 Lexi Nascimentodox DAILY MULTIVITAMIN CAPS Take one by mouth daily MULTIPLE VITAMINS-MINERAL S 68694396085 Lexi Nascimentodox METFORMIN HCL 500 MG TABS Take by mouth twice a day METFORMIN HCL 09097103913 Lexi Thorpex LOVENOX 60 MG/0.6ML SUBCUTANEOUS SOLUTION 70 mg, SubCutaneous, Q12H ENOXAPARIN SODIUM 12317707437 Lexi Nascimentodox LOSARTAN POTASSIUM 100 MG TABS Take one by mouth daily LOSARTAN POTASSIUM 57891366331 Lexi Nascimentodox ACIDOPHILUS LACTOBACILLUS CAPS Take two by mouth daily LACTOBACILLUS 79282103552 Lexi Gipson HYDRALAZINE HCL 50 MG TABS 2 Tab, Oral, BID HYDRALAZINE HCL 52958609594 Lexi Thorpex DORZOLAMIDE HCL 2 % SOLN 1 Drop, Eye Right, BID DORZOLAMIDE HCL 65779246292 Lexi Nascimentodox WARFARIN SODIUM 3 MG TABS Take one by mouth daily WARFARIN SODIUM 64725218723 Lexi Nascimentodox CARVEDILOL 6.25 MG TABS Take one by mouth 3 times daily, morning, afternoon and evening. CARVEDILOL 28074031926 Lexi Nascimentodox ATORVASTATIN CALCIUM 80 MG TABS Take one by mouth daily ATORVASTATIN CALCIUM 22599539649 Lexi Gipson AMOXICILLIN-POT CLAVULANATE 875-125 MG TABS Take by mouth twice a day AMOXICILLIN-POT CLAVULANATE 83755919602 Lexi Gipson Medications Administered No information available. [...]
--- OUTSIDE RECORDS SUMMARY | 2025-08-16 09:18 | XMS_ITS | Encounter Summary ---
Author Organization [employer] ([place], [place], [place], [place]) Address [address] [place] [address] Care Team Providers Care Hand Or Machine Paster Name Role Phone Jay Howell MD Primary Care Provider [phone] Encounter Details Date Type Department Care Team (Late st Contact Info) Description 07/18/2021 Transcribed Document [facility] [place] [facility] [place] [address] ProviderJessie MD [address] [place], [place] [address] Social History Tobacco Use Types Packs/Day Years [...] filedocumented in this encounter Care Teams Hand Or Machine Paster Relationship Specialty Start Date End Date Jay Howell MD [address] [place] [phone] PCP - General Emergency Medicine 11/12/23 documented as of this encounter
--- OUTSIDE RECORDS SUMMARY | 2025-08-16 09:18 | XMS_ITS | Encounter Summary ---
Author Organization [employer] ([place], [place], [place], [place]) Address [address] [place] [address] Care Team Providers Care Activity Manager Name Role Phone Jay Howell MD Primary Care Provider [phone] Encounter Details Date Type Department Care Team (Late st Contact Info) Description 03/19/2021 Transcribed Document [facility] Family Medicine [address] [place] [address] ProviderJessie MD [address] [place] [address] Social History Tobacco Use Types Packs/Day [...] Yuen MD - 03/19/2021 2:50 PM CDT [facility] [address] SKYLER MONTOYA :1940 Visit Time:03/17/2021 Your Visit Summary Your Care Team Admitting Physician - MARIA ELENA DAVALOS [facility] Attending Physician - SARAH CONTEH MD [...] or Anabell ( Hand Surgery) on d/c. [phone] Activity: Discharge Activity: Activity as tolerated Diet: Discharge Diet: Heart healthy diet Driving Restriction: Do Not Drive due to fainting episode until your doctor says you can Follow-Up Appointments Follow Up with ANDERSON CARRASCO MD When Within 3 to 5 days Comments for ortho eval for fracture wrist Where: [address] [place] [address]- Follow Up with WOO JOHNSTON When Within 2 to 4 weeks Where: [address] [place] [address] [place] [address]- Business (1) Follow Up with JEFFERSON MENDOZA When Within 6 weeks Comments Patient should call for a follow up appointment with [facility] Neurology. Where: [address] [place] [address]- Business (1) Medications What How Much When [...] activities are safe for you. ??? Take eiyb-urf-lrjocny and prescription medicines only as told by [...] provider. Document Revised: 07/31/2018 Document Reviewed: 03/26/2017 [employer] Patient Education ?? 2020 [employer]. Near-Syncope Near-syncope is when you suddenly [...] these instructions at home: Medicines ??? Take fzyu-rdl-qjjbumh and prescription medicines only as told by [...] Reviewed: 08/22/2019 Elsevier Patient Education ?? 2020 [employer]. Emergency Awareness and Preventative Care STROKE is [...] Assistance with quitting is available by contacting 4-152-HHJA-NOW. This is a free resource providing counseling, [...] range between ( 0.0 and 7.0 ) Harney #: 0.59 K/uL -- Normal range between ( 0.16 and 1.00 ) Eos #: 0.00 x10(3)/uL -- Normal range between ( 0.00 and 0.80 ) Harney %: 8.9 % -- Normal range between [...] /LPF Urine Bilirubin Dipstick: Negative Urine Specific [place]: 1.015 -- Normal range between ( 1.005 [...] was given the opportunity to ask questions. Patient/Pet Stylist Name: Patient/Pet Stylist Signature: Relationship to Patient: Clinician/Hospital Pet Stylist Signature: Date: Electronically signed by Sivan, [facility] Conversion Life Skills Coach Cerner at 02/04/2023 2:18 PM CDT documented in this encounter Plan of Treatment Not on file documented as of this encounter Visit Diagnoses Not on filedocumented in this encounter Care Teams Activity Manager Relationship Specialty Start Date End Date Jay Howell MD [address] [place] [phone] PCP - General Emergency Medicine 11/12/23 documented as of this encounter
--- OUTSIDE RECORDS SUMMARY | 2025-08-16 09:18 | XMS_ITS | Encounter Summary ---
Author Organization [employer] ([place], [place], [place], [place]) Address [address] [place] [address] Care Team Providers Care Colorer Name Role Phone Jay Howell MD Primary Care Provider [phone] Encounter Details Date Type Department Care Team (Late st Contact Info) Description 12/12/2018 Transcribed Document [facility] [place] [address] [place] [address] ProviderJessie MD [address] [place], [place] [address] Social History Tobacco Use Types Packs/Day Years Used Date Smoking Tobacco: Never Assessed Comments Unknown Sex and Gender Information Value Date Recorded Sex Assigned at Not on file Legal Sex Female 7:30 PM CDT Gender Identity Not on file Sexual Orientation Not on file documented as of this encounter Miscellaneous Notes * Cerner Conversion Note - Jessie ProviderMD - 12/12/2018 10:41 PM POULTRY FARMER MEAT [address] [place] [address] Patient Information Name: SKYLER MONTOYA [...] please contact the Patient Resource Center at [phone]. With: Address: When: Follow-up with your head athletic trainer in the morning. Return to the closest emergency department for any acute new concerns or recurrence of symptoms. Within in AM With: Address: When: TARA CHEN [address] [place] [address] DR HUTCHINSON, BEATRIZ [address] [facility] (1) Within 2 to 3 days [...] physical activity. It especially occurs in the doughnut fryer hours. What are the causes? Atherosclerosis is [...] 10/03/2006 Document Revised: 03/16/2017 Document Reviewed: 02/04/2015 [employer] Interactive Patient Education ? 2017 [employer] Allergies: Macrodantin; morphine; nitrofurantoin Medication Information: [...] range between ( 0.0 and 7.0 ) Ness #: 0.65 K/uL -- Normal range between ( 0.16 and 1.00 ) Eos #: 0.00 x10(3)/uL -- Normal range between ( 0.00 and 0.80 ) Ness %: 10.7 % -- Normal range between [...] verify that SKYLER MONTOYA was seen at [facility] Emergency Department on ,12/12/2018 22:41:24. This [...] along the way. As a healthcare provider, [facility] recommends that you stop smoking. Assistance with quitting is available by contacting 1-846-XXQJ-NOW. This is a free resource providing counseling, [...] Electronic Communications Privacy Act 18 U.S.C. ???Sections 2615-6969,?? and contain information intended for the specified [...] Be sure to sign up for the [facility] patient portal, which gives you 09/05 access to your medical information ??? including these discharge instructions ??? using your computer, smartphone, or tablet. Just go to [employer] to get started. Questions? Call . Acknowledgment [...] on filedocumented in this encounter Care Teams Colorer Relationship Specialty Start Date End Date Jay Howell MD [address] [place] [phone] PCP - General Emergency Medicine 11/12/23 documented as of this encounter
--- OUTSIDE RECORDS SUMMARY | 2025-08-16 09:18 | XMS_ITS | Encounter Summary ---
Author Organization [employer] ([place], [place], [place], [place]) Address [address] [place] [address] Care Team Providers Care Capacity Manager Name Role Phone Jay Howell MD Primary Care Provider [phone] Encounter Details Date Type Department Care Team (Late st Contact Info) Description 03/19/2021 Transcribed Document [facility] [place] [facility] [place] [address] ProviderJessie MD [address] [place], [place] [address] Social History Tobacco Use Types Packs/Day Years Used Date Smoking Tobacco: Never Assessed Comments Unknown Sex and Gender Information Value Date Recorded Sex Assigned at Not on file Legal Sex Female 7:30 PM CDT Gender Identity Not on file Sexual Orientation Not on file documented as of this encounter Miscellaneous Notes * Cerner Conversion Note - Historical ProviderMD - 03/19/2021 2:00 AM CDT Donor Processor Details Entered On: 03/19/2021 2:31 EDT Performed [...] 03/19/2021 2:31 EDT Electronically signed by Sivan [facility] Conversion Beverage Inspection Machine Tender Cerner at 02/04/2023 2:11 PM CDT documented in this encounter Plan of Treatment Not on file documented as of this encounter Visit Diagnoses Not on filedocumented in this encounter Care Teams Capacity Manager Relationship Specialty Start Date End Date Jay Howell MD [address] [place] [phone] PCP - General Emergency Medicine 11/12/23 documented as of this encounter
--- OUTSIDE RECORDS SUMMARY | 2025-08-16 09:18 | XMS_ITS | Encounter Summary ---
Author Organization [employer] ([place], [place], [place], [place]) Address [address] [place] [address] Care Team Providers Care Computer Art Instructor Name Role Phone Jay Howell MD Primary Care Provider [phone] Encounter Details Date Type Department Care Team (Late st Contact Info) Description 12/12/2018 Transcribed Document [facility] [place] [address] [place] [address] ProviderJessie MD [address] [place] [address] Social History Tobacco Use Types Packs/Day Years Used Date Smoking Tobacco: Never Assessed Comments Unknown Sex and Gender Information Value Date Recorded Sex Assigned at Not on file Legal Sex Female 7:30 PM CDT Gender Identity Not on file Sexual Orientation Not on file documented as of this encounter Miscellaneous Notes * Cerner Conversion Note - Jessie Yuen MD - 12/12/2018 8:58 PM MANAGER FOOD BEVERAGE ED Assessment Entered On: 12/12/2018 21:53 EST [...] Communication Barrier : None Primary Language : Icelandic Additional Emergency Contact #1 : Johnny Montoya Additional Contact #1 Phone Number : [phone] Additional Contact #1 Relationship : spouse Any [...] Rhythm : Regular Nail Bed Color : [place] Chest Pain : Yes Neck Vein Distention [...] Zurdo Liriano Rn-Resource - 12/12/2018 21:49 EST documented in this encounter Plan of Treatment Not on file documented as of this encounter Visit Diagnoses Not on filedocumented in this encounter Care Teams Computer Art Instructor Relationship Specialty Start Date End Date Jay Howell MD [address] [place] [phone] PCP - General Emergency Medicine 11/12/23 documented as of this encounter
--- OUTSIDE RECORDS SUMMARY | 2025-08-16 09:18 | XMS_ITS | Encounter Summary ---
Author Organization [employer] ([place], [place], [place], [place]) Address [address] [place] [address] Care Team Providers Care Parts Puller Name Role Phone Jay Howell MD Primary Care Provider [phone] Encounter Details Date Type Department Care Team (Late st Contact Info) Description 12/12/2018 Transcribed Document [facility] [place] Medicine [address] [place] [address] ProviderJessie MD [address] [place] [address] Social History Tobacco Use Types Packs/Day Years Used Date Smoking Tobacco: Never Assessed Comments Unknown Sex and Gender Information Value Date Recorded Sex Assigned at Not on file Legal Sex Female 7:30 PM CDT Gender Identity Not on file Sexual Orientation Not on file documented as of this encounter Miscellaneous Notes * Cerner Conversion Note - Historical ProviderMD - 12/12/2018 10:20 PM SUPERVISOR REFRACTORY PRODUCTS Electronically signed by [facility] Conversion Job Superintendent Cerner at 02/04/2023 1:59 PM CDT documented in this encounter Plan of Treatment Not on file documented as of this encounter Visit Diagnoses Not on filedocumented in this encounter Care Teams Parts Puller Relationship Specialty Start Date End Date Jay Howell MD [address] [place] [phone] PCP - General Emergency Medicine 11/12/23 documented as of this encounter
--- OUTSIDE RECORDS SUMMARY | 2025-08-16 09:19 | XMS_ITS | Encounter Summary ---
Author Organization [employer] ([place], [place], [place], [place]) Address [address] [place] [address] Care Team Providers Care Head Of Transport Logistics Name Role Phone Jay Howell MD Primary Care Provider [phone] Encounter Details Date Type Department Care Team (Late st Contact Info) Description 08/27/2020 Transcribed Document [facility] [place] [address] [place] [address] ProviderJessie MD [address] [place] [address] Social History Tobacco Use Types Packs/Day Years Used Date Smoking Tobacco: Never Assessed Comments Unknown Sex and Gender Information Value Date Recorded Sex Assigned at Not on file Legal Sex Female 7:30 PM CDT Gender Identity Not on file Sexual Orientation Not on file documented as of this encounter Miscellaneous Notes * Cerner Conversion Note - Jessie Yuen MD - 08/27/2020 8:20 AM CLINICAL APPEALS REVIEWER Patient: SKYLER MONTOYA Age: 79 years Sex: [...] 08/[address] Verde: *Operation RIGHT HEAVY TRUCK TECHNICIAN access - ultrasound guided Aortogram with LEFT lower extremity run-off LEFT PT angioplasty (2.5-6v125hd Nanocross) LEFT peroneal angioplasty (2.5-0p460rr Nanocross) RIGHT HEAVY TRUCK TECHNICIAN closure (Angioseal) LEFT leg debridement 08/27/20 seen [...] Level 8.8 mg/dL 08/27/2020 03:40 MICRO: ACC: [id number] ORDER: Culture Anaerobic DATE: 08/26/2020 13:56 SOURCE: Surgical Swab SITE: Leg Lower L Reports Pre 08/27/2020 07:47 Culture in progress == ACC: [id number] ORDER: Culture Wound and Stain DATE: 08/26/2020 15:23 SOURCE: Surgical Swab SITE: Leg Lower L Reports Pre 08/27/2020 07:14 No growth GS 08/26/2020 18:13 Few White Blood Cells No organisms seen. == ACC: [id number] ORDER: Culture Fungus DATE: 08/26/2020 13:56 SOURCE: Surgical Swab SITE: Leg Lower L Reports SINDI 08/26/2020 16:09 No Fungal elements seen == ACC: [id number] ORDER: Culture Wound and Stain DATE: 08/25/2020 05:00 SOURCE: Wound SITE: Leg Lower L Reports Pre 08/26/2020 06:23 No growth GS 08/25/2020 07:26 No organisms seen. Few White Blood Cells Rare epithelial cells == ACC: [id number] ORDER: Culture Blood DATE: 08/25/2020 05:01 SOURCE: Blood SITE: Reports Pre 08/27/2020 06:01 No growth at 2 days. Pre 08/26/2020 06:01 No growth at 1 day. Pre 08/25/2020 23:02 Culture less than 24 Hrs old == ACC: [id number] ORDER: Culture Blood DATE: 08/25/2020 05:01 SOURCE: Blood SITE: Reports Pre 08/27/2020 06:01 No growth at 2 days. Pre 08/26/2020 06:01 No growth at 1 day. Pre 08/25/2020 23:02 Culture less than 24 Hrs old == Radiology Results (Last 48 hours) [id number] -- 08/25/2020 05:53 MRI Spine Lumbar WO [...] in this encounter Care Teams Head Of Transport Logistics Relationship Specialty Start Date End Date Jay Howell MD [address] [place] [phone] PCP - General Emergency Medicine 11/12/23 documented as of this encounter
--- OUTSIDE RECORDS SUMMARY | 2025-08-16 09:19 | XMS_ITS | Encounter Summary ---
Author Organization [employer] ([place], [place], [place], [place]) Address [address] [place] [address] Care Team Providers Care Brim Cutter Name Role Phone Jay Howell MD Primary Care Provider [phone] Encounter Details Date Type Department Care Team (Late st Contact Info) Description 08/27/2020 Transcribed Document [facility] [place] [address] [place] [address] ProviderJessie MD [address] [place] [address] Social History Tobacco Use Types Packs/Day Years Used Date Smoking Tobacco: Never Assessed Comments Unknown Sex and Gender Information Value Date Recorded Sex Assigned at Not on file Legal Sex Female 7:30 PM CDT Gender Identity Not on file Sexual Orientation Not on file documented as of this encounter Miscellaneous Notes * Cerner Conversion Note - Historical ProviderMD - 08/27/2020 3:14 PM ASSET CARD CLERK Consult Phone Call Documentation Entered On: 08/27/2020 15:23 EST Performed On: 08/27/2020 15:14 EST by JOANN DELGADILLO Phone Call for Consults Consult Phone Call/Page Attempt : First call JOANN DELGADILLO - 08/27/2020 15:23 EST Electronically signed by Sivan [facility] Conversion Wireless Communications Engineer Cerner at 02/04/2023 1:59 PM CDT documented in this encounter Plan of Treatment Not on file documented as of this encounter Visit Diagnoses Not on filedocumented in this encounter Care Teams Brim Cutter Relationship Specialty Start Date End Date Jay Howell MD [address] [place] [phone] PCP - General Emergency Medicine 11/12/23 documented as of this encounter
--- OUTSIDE RECORDS SUMMARY | 2025-08-16 09:19 | XMS_ITS | Encounter Summary ---
Author Organization [employer] ([place], [place], [place], [place]) Address [address] [place] [address] Care Team Providers Care Proof Coins Inspector Name Role Phone Jay Howell MD Primary Care Provider [phone] Encounter Details Date Type Department Care Team (Late st Contact Info) Description 08/27/2020 Transcribed Document [facility] [place] [address] [place] [address] ProviderJessie MD [address] [place], [place] [phone] Social History Tobacco Use Types Packs/Day Years Used Date Smoking Tobacco: Never Assessed Comments Unknown Sex and Gender Information Value Date Recorded Sex Assigned at Not on file Legal Sex Female 7:30 PM CDT Gender Identity Not on file Sexual Orientation Not on file documented as of this encounter Miscellaneous Notes * Cerner Conversion Note - Historical ProviderMD - 08/27/2020 3:14 PM HEARING IMPAIRED TEACHER Evaluation, Physical Therapy Entered On: 08/29/2020 12:09 EST Performed On: 08/29/2020 10:38 EST by ERIC [place], PT General Information, PT Therapy Diagnosis, PT : assessment for need for skilled PTx --- NONE at this time Onset of Problem, PT : 08/27/2020 EST Co-treated by, PT : Other: OTx Student General Information Comment, PT : 79 yo female adm to [facility] 08/25 with L LE Hematoma and [...] ALTHEA ERIC, PT - 08/29/2020 13:14 EST [place] PT Charges PT Eval Low Complexity : 1 ALTHEA ERIC, PT - 08/29/2020 13:14 EST Electronically signed by Sivan, [facility] Conversion Tool Planner Cerner at 02/04/2023 1:59 PM CDT documented in this encounter Plan of Treatment Not on file documented as of this encounter Visit Diagnoses Not on filedocumented in this encounter Care Teams Proof Coins Inspector Relationship Specialty Start Date End Date Jay Howell MD [address] [place] [phone] PCP - General Emergency Medicine 11/12/23 documented as of this encounter
--- OUTSIDE RECORDS SUMMARY | 2025-08-16 09:19 | XMS_ITS | Encounter Summary ---
Author Organization [facility] Address [address] [place] [address] Care Team Providers Care Soap Grinder Name Role Phone Jay Howell MD Primary Care Provider [phone] Reason for Visit * Reason Onset Date Comments DR. DUMAS - SCHEDULING REQUEST 07/02/2025 Encounter Details Date Type Department Care Team (Late st Contact Info) Description 07/02/2025 Telephone [facility] C[facility] [address] [place] [phone] Judie Dumas MD [address] [place] [address] DR. 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 PATIENT WOULD LIKE TO BE SEEN [place] AND CAN SEND ANY RELEVANT RECORDS FROM CARE WHILE SHE WAS AWAY. documented in this encounter Plan of Treatment Not on file documented as of this encounter Visit Diagnoses Not on filedocumented in this encounter Care Teams Soap Grinder Relationship Specialty Start Date End Date Jay Howell MD [address] [place] [address] PCP - General Emergency Medicine 04/28/23 documented as of this encounter
--- OUTSIDE RECORDS SUMMARY | 2025-08-16 09:19 | XMS_ITS | Encounter Summary ---
Author Organization [employer] ([place], [place], [place], [place]) Address [address] [place] [address] Care Team Providers Care Stock Room Manager Name Role Phone Jay Howell MD Primary Care Provider [phone] Encounter Details Date Type Department Care Team (Late st Contact Info) Description 07/18/2021 Transcribed Document [facility] [place] [address] [place] [address] ProviderJessie MD [address] [place] [phone] Social History Tobacco Use Types Packs/Day Years [...] 06/13/2020 8:52 EVA LAWS RN PCI w/ [place] stent to D1 Coronary artery bypass graft (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 femur repair. Appendectomy ([id number]). uterine suspension. Hysterectomy (308973949). back surgury. Cholecystectomy (27877210). Hip replacement ([id number]). cataract surgury.. Family history: Cardiomyopathy Child Stroke [...] EDT Height Source Stated Height Entry Format Butler Height/Length, MAURITIAN (ft) 5 ft Height/Length MAURITIAN 3 Inch CLINICALHEIGHT 160.02 cm [place] Body Weight 52.02 kg Weight Source, ED Critical estimated dosing weight Weight Entry Format Butler Weight Uzbek lb 154 lb CLINICALWEIGHT 70 kg Body [...] C-SSRS: ED Clinical Reconciliation: ED Isolation: ED digital account coordinator: Lipase Level: PT/INR Prothrombin Time: PTT: ProBNP: Saline Lock Insert: Troponin I Ultra: Troponin I Ultra: aspirin: 324 mg, Chew, 1-Time iopamidol: 75 mL, IV Push, ADHOC. Electrocardiogram: Time 07/18/2021 15:21:00, rate 57, normal sinus rhythm, No ST changes, no ectopy, normal MN & QRS intervals, EP Interp. Electrocardiogram: Time 07/18/2021 19:13:00, rate 53, normal sinus rhythm, No ST changes, no ectopy, normal MN & QRS intervals, EP Interp. floor coverings installer: Normal sinus rhythm. Results review: All Results [...] % 30.3 % Lymph # 1.46 x10(3)/uL Prowers % 10.4 % HI Prowers # 0.50 K/uL Eos % 0.0 % Eos # 0.00 x10(3)/uL Baso % 0.4 % Baso # 0.02 x10(3)/uL Slide Review No IG# 0.03 x10(3)/uL IG% 0.60 % PT 39.6 Second(s) HI INR 4.1 HI PTT 44.9 Second(s) HI . Radiology results: Radiology Results (Last 48 hours) [id number] -- 07/18/2021 15:00 CR Chest 1 Vw [...] of instructions. Notes: I certify that the MLP/TYPESETTER APPRENTICE performed the services as delegated. . documented in this encounter Plan of Treatment Not on file documented as of this encounter Visit Diagnoses Not on filedocumented in this encounter Care Teams Stock Room Manager Relationship Specialty Start Date End Date Jay Howell MD [address] [place] [phone] PCP - General Emergency Medicine 11/12/23 documented as of this encounter
--- OUTSIDE RECORDS SUMMARY | 2025-08-16 09:19 | XMS_ITS | Encounter Summary ---
Author Organization [employer] ([place], [place], [place], [place]) Address [address] [place] [address] Care Team Providers Care Yarn Polishing Machine Operator Name Role Phone Jay Howell MD Primary Care Provider [phone] Encounter Details Date Type Department Care Team (Late st Contact Info) Description 07/18/[address] [facility] [place] Family Medicine [address] [place] [address] ProviderJessie MD [address] [place], [place] [phone] Social History Tobacco Use Types Packs/Day Years [...] Yuen MD - 07/18/2021 8:22 PM CDT [facility] [place] [place] [address] SKYLER MONTOYA :1940 Visit Time:07/18/2021 Your Visit [...] different. Where: [address] [place], [place] [address]- Business (1) Allergies Macrodantin morphine (rash, rash) [...] range between ( 0.0 and 7.0 ) Gillespie #: 0.50 K/uL -- Normal range between ( 0.16 and 1.00 ) Eos #: 0.00 x10(3)/uL -- Normal range between ( 0.00 and 0.80 ) Gillespie %: 10.4 % -- Normal range between [...] these instructions at home: Medicines ??? Take zzem-cto-orjnnqu and prescription medicines only as told by [...] provider. Document Revised: 04/05/2019 Document Reviewed: 04/05/2019 ElseTRAKLOK Patient Education ?? 2020 [employer]face. Emergency Awareness and Preventative Care STROKE is [...] Assistance with quitting is available by contacting 3-348-RHMZ-NOW. This is a free resource providing counseling, [...] was given the opportunity to ask questions. Patient/Bar Roller Name: Patient/Bar Roller Signature: Relationship to Patient: Clinician/Hospital Bar Roller Signature: Please Provide a Telephone Number Where You Can Be Reached: Is it Permissible To Leave a Message? Date: documented in this encounter Plan of Treatment Not on file documented as of this encounter Visit Diagnoses Not on filedocumented in this encounter Care Teams Yarn Polishing Machine Operator Relationship Specialty Start Date End Date Jay Howell MD [address] [place] [phone] PCP - General Emergency Medicine 11/12/23 documented as of this encounter
--- OUTSIDE RECORDS SUMMARY | 2025-08-16 09:19 | XMS_ITS | Encounter Summary ---
Author Organization [employer] ([place], [place], [place], [place]) Address [address] [place] [address] Care Team Providers Care Rendering Equipment Tender Name Role Phone Jay Howell MD Primary Care Provider [phone] Encounter Details Date Type Department Care Team (Late st Contact Info) Description 08/27/2020 Transcribed Document [facility] [place] [address] [place] [address] ProviderJessie MD [address] [place] [address] Social History Tobacco Use Types Packs/Day Years Used Date Smoking Tobacco: Never Assessed Comments Unknown Sex and Gender Information Value Date Recorded Sex Assigned at Not on file Legal Sex Female 7:30 PM CDT Gender Identity Not on file Sexual Orientation Not on file documented as of this encounter Miscellaneous Notes * Cerner Conversion Note - Jessie Yuen MD - 08/27/2020 9:53 AM NEIGHBORHOOD WORKER WOCN Inpatient Documentation Entered On: 09/01/2020 16:35 [...] Ulcer WOCN Wound Pressure Ulcer Documentation : [id number]-Czps Abnormality: Leg Left Lower, Anterior on 09/01/2020 13:00 by HOLDEN HESS RN I/W/A Present on Admission to Hospital: No I/W/A Type: Hematoma I/W/A Dressing Status: Clean, Dry, Intact I/W/A Wound Date of Dressing Change: 1:[id number]:0.615895:0:0 I/W/A Wound Bed Description: Full-thickness, Granulating I/W/A [...] - 09/01/2020 16:32 EST Electronically signed by [facility] Conversion Evp Managing Director Cerner at 02/04/2023 2:18 PM CDT documented in this encounter Plan of Treatment Not on file documented as of this encounter Visit Diagnoses Not on filedocumented in this encounter Care Teams Rendering Equipment Tender Relationship Specialty Start Date End Date Jay Howell MD [address] [place] [phone] PCP - General Emergency Medicine 11/12/23 documented as of this encounter
--- OUTSIDE RECORDS SUMMARY | 2025-08-16 09:19 | XMS_ITS | Encounter Summary ---
Author Organization [employer] ([place], [place], [place], [place]) Address [address] [place] [address] Care Team Providers Care Photograph Developer Name Role Phone Jay Howell MD Primary Care Provider [phone] Encounter Details Date Type Department Care Team (Late st Contact Info) Description 07/18/2021 Transcribed Document [facility] [place] Medicine [address] [place] [address] ProviderJessie MD [address] [place] [phone] Social History Tobacco Use Types Packs/Day Years [...] Reviewed by Provider, No further action required Electronically signed by Gayle Finnegan Conversion Senior Customer Service Representative Cerner at 02/04/2023 1:58 PM CDT documented in this encounter Plan of Treatment Not on file documented as of this encounter Visit Diagnoses Not on filedocumented in this encounter Care Teams Photograph Developer Relationship Specialty Start Date End Date Jay Howell MD [address] [place] [phone] PCP - General Emergency Medicine 11/12/23 documented as of this encounter
--- OUTSIDE RECORDS SUMMARY | 2025-08-16 09:19 | XMS_ITS | Encounter Summary ---
Author Organization [employer] ([place], [place], [place], [place]) Address [address] [place] [address] Care Team Providers Care Mechanical Oxidizer Name Role Phone Jay Howell MD Primary Care Provider [phone] Encounter Details Date Type Department Care Team (Late st Contact Info) Description 08/27/2020 Transcribed Document [facility] [place] [address] [place] [address] ProviderJessie MD [address] [place] [address] Social History Tobacco Use Types Packs/Day Years Used Date Smoking Tobacco: Never Assessed Comments Unknown Sex and Gender Information Value Date Recorded Sex Assigned at Not on file Legal Sex Female 7:30 PM CDT Gender Identity Not on file Sexual Orientation Not on file documented as of this encounter Miscellaneous Notes * Cerner Conversion Note - Historical ProviderMD - 08/27/2020 2:00 AM CLASSIFIED ADVERTISING SUPERVISOR Account Contact Associate Details Entered On: 08/27/2020 1:36 EST Performed [...] 08/27/2020 1:36 EST Electronically signed by Sivan [facility] Conversion Digital Marketing Program Manager Cerner at 02/04/2023 2:19 PM CDT documented in this encounter Plan of Treatment Not on file documented as of this encounter Visit Diagnoses Not on filedocumented in this encounter Care Teams Mechanical Oxidizer Relationship Specialty Start Date End Date Jay Howell MD [address] [place] [phone] PCP - General Emergency Medicine 11/12/23 documented as of this encounter
--- OUTSIDE RECORDS SUMMARY | 2025-08-16 09:19 | XMS_ITS | Encounter Summary ---
Author Organization [employer] ([place], [place], [place], [place]) Address [address] [place] [address] Care Team Providers Care Project Manager Finance Name Role Phone Jay Howell MD Primary Care Provider [phone] Encounter Details Date Type Department Care Team (Late st Contact Info) Description 07/18/2021 Transcribed Document [facility] [place] Family Medicine [address] [place] [address] ProviderJessie MD [address] [place] [phone] Social History Tobacco Use Types Packs/Day Years [...] 07/18/2021 8:15 PM CDT Electronically signed by [facility] Conversion Gardening Instructor Cerner at 02/04/2023 2:03 PM CDT documented in this encounter Plan of Treatment Not on file documented as of this encounter Visit Diagnoses Not on filedocumented in this encounter Care Teams Project Manager Finance Relationship Specialty Start Date End Date Jay Howell MD [address] [place] [phone] PCP - General Emergency Medicine 11/12/23 documented as of this encounter
--- OUTSIDE RECORDS SUMMARY | 2025-08-16 09:19 | XMS_ITS | Encounter Summary ---
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 SHE CAN FILL OUT THE SHARON FORM AT HER APPT IF THEY NEED ANYTHING OTHER THAN WHAT WE CAN SEE. THANKS. * Telephone Encounter - Radha Prince RegSched Rep - 07/02/2025 10:43 AM EDT Caller: Miladis Montoya Relationship: Self Best call back number: [phone] What form or medical record are you requesting: MEDICAL RECORDS. Who is requesting this form or medical record from you: DR FLOR LÓPEZ WITH [facility] IN [place], [place] How would you like to receive the form or medical records (pick-up, mail, fax): FAX If fax, what is the fax number: [phone] Timeframe paperwork needed: PAULETTE - BEFORE APPOINTMENT ON 07.10.25 Additional notes: PATIENT HAS APPOINTMENT WITH [facility] ON 07.10.25 AND NEEDS TO HAVE MEDICAL RECORDS FROM [facility] SENT OVER. HOWEVER, [facility] NEEDS A MEDICAL RECORDS REQUEST FORM FROM THE OFFICE BEFORE THEY ARE WILLING TO FAX THEM TO US. documented in this encounter Plan of Treatment Not on file documented as of this encounter Visit Diagnoses Not on filedocumented in this encounter Care Teams Cnc Set Up Operator Relationship Specialty Start Date End Date Jay Howell MD [address] [place] [address] PCP - General Emergency Medicine 04/28/23 documented as of this encounter
--- OUTSIDE RECORDS SUMMARY | 2025-08-16 09:19 | XMS_ITS | Encounter Summary ---
Author Organization [employer] ([place], [place], [place], [place]) Address [address] [place] [address] Care Team Providers Care Pickle Processor Name Role Phone Jay Howell MD Primary Care Provider [phone] Encounter Details Date Type Department Care Team (Late st Contact Info) Description 08/27/2020 Transcribed Document [facility] [place] Family Medicine [address] [place] [address] ProviderJessie MD [address] [place] [address] Social History Tobacco Use Types Packs/Day Years Used Date Smoking Tobacco: Never Assessed Comments Unknown Sex and Gender Information Value Date Recorded Sex Assigned at Not on file Legal Sex Female 7:30 PM CDT Gender Identity Not on file Sexual Orientation Not on file documented as of this encounter Miscellaneous Notes * Cerner Conversion Note - Historical ProviderMD - 08/27/2020 3:14 PM METAL STUD FRAMER Evaluation, Occupational Therapy Entered On: 08/29/2020 13:30 [...] Occupational Therapy : Verbalizes understanding ANAY BOCANEGRA [facility] - 08/29/2020 13:19 EST [...] BOCANEGRA STUDENTOCCUPATIONAL THERAPIST - 08/29/2020 13:40 EST Die Cutter Goals, OT Grooming LTG Grid Goal #1 [...] BOCANEGRA STUDENT-OCCUPATIONAL THERAPIST - 08/29/2020 13:40 EST [place] OT Charges OT Eval Moderate Complexity : 1 ANAY BOCANEGRA STUDENT-OCCUPATIONAL THERAPIST - 08/29/2020 13:19 EST documented in this encounter Plan of Treatment Not on file documented as of this encounter Visit Diagnoses Not on filedocumented in this encounter Care Teams Pickle Processor Relationship Specialty Start Date End Date Jay Howell MD [address] [place] [phone] PCP - General Emergency Medicine 11/12/23 documented as of this encounter
--- OUTSIDE RECORDS SUMMARY | 2025-08-16 09:19 | XMS_ITS | Encounter Summary ---
Author Organization [employer] ([place], [place], [place], [place]) Address [address] [place] [address] Care Team Providers Care Mix House Operator Name Role Phone Jay Howell MD Primary Care Provider [phone] Encounter Details Date Type Department Care Team (Late st Contact Info) Description 08/27/2020 Transcribed Document [facility] [place] [address] [place] [address] ProviderJessie MD [address] [place] [address] Social History Tobacco Use Types Packs/Day Years Used Date Smoking Tobacco: Never Assessed Comments Unknown Sex and Gender Information Value Date Recorded Sex Assigned at Not on file Legal Sex Female 7:30 PM CDT Gender Identity Not on file Sexual Orientation Not on file documented as of this encounter Miscellaneous Notes * Cerner Conversion Note - Jessie Yuen MD - 08/27/2020 3:10 PM DIRECTOR OUTCOMES On Going Discharge Planning Entered On: 08/27/2020 15:14 EST Performed On: 08/27/2020 15:10 EST by KAVITA PELLETIER RN-Taxi Truck DriverMachine Gunner Progress Note Discharge Arrangements : Patient Post-Acute [...] Meeting Medical Necessity : Yes KAVITA PELLETIER RN-Taxi Truck Driver - 08/27/2020 15:10 EST Narrative Progress Note [...] past after her SIMONA and went to [facility] prior to home with HH. She is agreeable to look at list of CUTTER HELPER to make an informed decision based on quality and resource use information. Cx's are pending to determine need for IV abx at home. Likely dc in a few days. CM will continue to follow. KAVITA PELLETIER RN-Taxi Truck Driver - 08/27/2020 15:10 EST Electronically signed by Sivan [facility] Conversion Medication Manager Cerner at 02/04/2023 2:13 PM CDT documented in this encounter Plan of Treatment Not on file documented as of this encounter Visit Diagnoses Not on filedocumented in this encounter Care Teams Mix House Operator Relationship Specialty Start Date End Date Jay Howell MD [address] [place] [phone] PCP - General Emergency Medicine 11/12/23 documented as of this encounter
--- OUTSIDE RECORDS SUMMARY | 2025-08-16 09:19 | XMS_ITS | Encounter Summary ---
Author Organization [employer] ([place], [place]) Address [address] [place] [address] Care Team Providers Care Plastics Fabricator Name Role Phone Jay Howell MD Primary Care Provider [phone] Encounter Details Date Type Department Care Team (Late st Contact Info) Description 07/18/2021 Transcribed Document [facility] [place] [facility] [place] [address] ProviderJessie MD [address] [place], [place] [address] Social History Tobacco Use Types Packs/Day Years [...] filedocumented in this encounter Care Teams Plastics Fabricator Relationship Specialty Start Date End Date Jay Howell MD [address] [place] [phone] PCP - General Emergency Medicine 11/12/23 documented as of this encounter
--- OUTSIDE RECORDS SUMMARY | 2025-08-16 09:19 | XMS_ITS | Encounter Summary ---
Author Organization [employer] ([place], [place]) Address [address] [place] [address] Care Team Providers Care Food Service Worker Hospital Name Role Phone Jay Howell MD Primary Care Provider [phone] Encounter Details Date Type Department Care Team (Late st Contact Info) Description 08/27/2020 Transcribed Document [facility] [place] [address] [place] [address] ProviderJessie MD [address] [place], [place] [address] Social History Tobacco Use Types Packs/Day Years Used Date Smoking Tobacco: Never Assessed Comments Unknown Sex and Gender Information Value Date Recorded Sex Assigned at Not on file Legal Sex Female 7:30 PM CDT Gender Identity Not on file Sexual Orientation Not on file documented as of this encounter Miscellaneous Notes * Cerner Conversion Note - Historical ProviderMD - 08/27/2020 5:00 PM DESIGN MAINTENANCE ENGINEER Chart Check - Review Order Profile Entered On: 08/27/2020 19:43 EST Performed On: 08/27/2020 17:00 EST by JOAO ROSA RN Chart Check Powerplans Initiated/Discontinued as Appropriate : Yes All Active Orders Reviewed : Yes JOAO ROSA RN - 08/27/2020 19:43 EST documented in this encounter Plan of Treatment Not on file documented as of this encounter Visit Diagnoses Not on filedocumented in this encounter Care Teams Food Service Worker Hospital Relationship Specialty Start Date End Date Jay Howell MD [address] [place] [phone] PCP - General Emergency Medicine 11/12/23 documented as of this encounter
--- OUTSIDE RECORDS SUMMARY | 2025-08-16 09:19 | XMS_ITS | Encounter Summary ---
Author Organization [employer] ([place], [place], [place], [place]) Address [address] [place] [address] Care Team Providers Care Clinical Training Coordinator Name Role Phone Jay Howell MD Primary Care Provider [phone] Encounter Details Date Type Department Care Team (Late st Contact Info) Description 07/18/2021 Transcribed Document [facility] [place] [facility] [place] [place] [address] ProviderJessie MD [address] [place], [place] [address] Social History Tobacco Use Types Packs/Day Years [...] : 3 - Urgent Tracking Group : [facility] ED CHETAN BRASWELL RN-Resource - 07/18/2021 [...] 15:12:21 EDT) Problems(Active) Apnea, sleep (SNOMED CT :546779612 ) Name of Problem: Apnea, sleep ; Recorder: JUAN LUIS GIL RN; Confirmation: Confirmed ; Classification: Medical ; Code: 190793470 ; Contributor System: PowerChart ; Last Updated: 11/12/2014 10:12 EST ; Life Cycle Date: 11/12/2014 ; Life Cycle Status: Active ; Vocabulary: SNOMED CT Arthritis (SNOMED CT :9382717 ) Name of Problem: Arthritis ; Recorder: KENYON CHAMBERS RN; Confirmation: Confirmed ; Classification: Medical ; Code: 6401796 ; Contributor System: PowerChart ; Last Updated: 04/10/2016 8:04 EDT ; Life Cycle Date: 08/13/2013 ; Life Cycle Status: Active ; Vocabulary: SNOMED CT Atrial fibrillation with RVR (SNOMED CT :3813811938 ) Name of Problem: Atrial fibrillation with RVR ; Recorder: SANG RICO APRN; Confirmation: Confirmed ; Classification: Medical ; Code: 8403087343 ; Contributor System: PowerChart ; Last Updated: 04/10/2016 8:05 EDT ; Life Cycle Date: 04/10/2016 ; Life Cycle Status: Active ; Responsible Provider: SANG RICO APRN; Vocabulary: SNOMED CT Blood clot (SNOMED CT :708240651 ) Name of Problem: Blood clot ; Recorder: KENYON CHAMBERS RN; Confirmation: Confirmed ; Classification: Patient Stated ; Code: 943371209 ; Contributor System: PowerChart ; Last Updated: [...] Vocabulary: Patient Care Chest pain (SNOMED CT :29435309 ) Name of Problem: Chest pain ; Recorder: SANG RICO APRN; Confirmation: Complaint of ; Classification: Medical ; Code: 63953529 ; Contributor System: PowerChart ; Last Updated: 04/10/2016 8:05 EDT ; Life Cycle Status: Active ; Responsible Provider: SANG RICO APRN; Vocabulary: SNOMED CT Chronic anticoagulation (SNOMED CT :517207541 ) Name of Problem: Chronic anticoagulation ; Recorder: SANG RICO APRN; Confirmation: Confirmed ; Classification: Medical ; Code: 044330462 ; Contributor System: [employer]ancers [employer]Chart ; Last Updated: 04/10/2016 8:05 EDT ; Life Cycle Date: 04/10/2016 ; Life Cycle Status: Active ; Responsible Provider: SANG RICO APRN; Vocabulary: SNOMED CT Clotting disorder (SNOMED CT :812874793 ) Name of Problem: Clotting disorder ; Recorder: KENYON CHAMBERS RN; Confirmation: Confirmed ; Classification: Patient Stated ; Code: 173371044 ; Contributor System: PowerChart ; Last Updated: 03/28/2014 19:29 EDT ; Life Cycle Date: 08/13/2013 ; Life Cycle Status: Active ; Vocabulary: SNOMED CT COPD (SNOMED CT :46957384 ) Name of Problem: COPD ; Recorder: KENYON CHAMBERS RN; Confirmation: Confirmed ; Classification: Medical ; Code: 83850191 ; Contributor System: PowerChart ; Last Updated: 04/10/2016 8:03 EDT ; Life Cycle Date: 08/13/2013 ; Life Cycle Status: Active ; Vocabulary: SNOMED CT Coronary artery disease (SNOMED CT :8183287003 ) Name of Problem: Coronary artery disease ; Recorder: KENYON CHAMBERS RN; Confirmation: Confirmed ; Classification: Medical ; Code: 1601239838 ; Contributor System: [employer]Chart ; Last Updated: 04/10/2016 8:03 EDT ; Life Cycle Date: 08/13/2013 ; Life Cycle Status: Active ; Vocabulary: SNOMED CT Diabetes mellitus (SNOMED CT :292328325 ) Name of Problem: Diabetes mellitus ; Recorder: KENYON CHAMBERS RN; Confirmation: Confirmed ; Classification: Medical ; Code: 905995189 ; Contributor System: [employer]Chart ; Last Updated: 04/10/2016 8:04 EDT ; Life Cycle Date: 08/13/2013 ; Life Cycle Status: Active ; Vocabulary: SNOMED CT Emphysema (SNOMED CT :321022711 ) Name of Problem: Emphysema ; Recorder: JUAN LUIS GIL RN; Confirmation: Confirmed ; Classification: Medical ; Code: 136372333 ; Contributor System: PowerChart ; Last Updated: 11/12/2014 10:11 EST ; Life Cycle Date: 11/12/2014 ; Life Cycle Status: Active ; Vocabulary: SNOMED CT GERD - Gastro-esophageal reflux disease (SNOMED CT :2564809760 ) Name of Problem: GERD - Gastro-esophageal reflux disease ; Recorder: KENYON CHAMBERS RN; Confirmation: Confirmed ; Classification: Medical ; Code: 6466776840 ; Contributor System: PowerChart ; Last Updated: [...] Patient Care High blood pressure (SNOMED CT :07700828 ) Name of Problem: High blood pressure ; Recorder: KENYON CHAMBERS RN; Confirmation: Confirmed ; Classification: Medical ; Code: 11426374 ; Contributor System: PowerChart ; Last Updated: 04/10/2016 8:03 EDT ; Life Cycle Date: 08/13/2013 ; Life Cycle Status: Active ; Vocabulary: SNOMED CT History of obstructive sleep apnea (IMO :05929710 ) Name of Problem: History of obstructive sleep apnea ; Recorder: SYSTEM, SYSTEM; Confirmation: Confirmed ; Classification: Medical ; Code: 76708162 ; Last Updated: 08/25/2020 18:21 EST ; Life Cycle Date: 08/25/2020 ; Life Cycle Status: Active ; Vocabulary: IMO Hx of pulmonary embolus (SNOMED CT :317087576 ) Name of Problem: Hx of pulmonary embolus ; Recorder: SANG RICO APRN; Confirmation: Confirmed ; Classification: Medical ; Code: 428641996 ; Contributor System: PowerChart ; Last Updated: 04/10/2016 8:05 EDT ; Life Cycle Date: 04/10/2016 ; Life Cycle Status: Active ; Responsible Provider: SANG RICO APRN; Vocabulary: SNOMED CT Hyperlipidemia (SNOMED CT :65367226 ) Name of Problem: Hyperlipidemia ; Recorder: KENYON CHAMBERS RN; Confirmation: Confirmed ; Classification: Medical ; Code: 13265034 ; Contributor System: PowerChart ; Last Updated: 04/10/2016 8:03 EDT ; Life Cycle Date: 08/13/2013 ; Life Cycle Status: Active ; Vocabulary: SNOMED CT Multiple renal cysts (SNOMED CT :158111106 ) Name of Problem: Multiple renal cysts ; Recorder: KENYON CHAMBERS RN; Confirmation: Confirmed ; Classification: Medical ; Code: 048576901 ; Contributor System: [employer]Chart ; Last Updated: 04/10/2016 8:04 EDT ; Life Cycle Date: 08/13/2013 ; Life Cycle Status: Active ; Vocabulary: SNOMED CT Stented coronary artery (SNOMED CT :7006617644 ) Name of Problem: Stented coronary artery ; Recorder: KENYON CHAMBERS RN; Confirmation: Confirmed ; Classification: Medical ; Code: 9381928343 ; Contributor System: [employer]Chart ; Last Updated: 04/10/2016 8:03 EDT ; Life Cycle Date: 08/13/2013 ; Life Cycle Status: Active ; Vocabulary: SNOMED CT Diagnoses(Active) Chest pain Date: 07/18/2021 ; Diagnosis Type: Reason For Visit ; Confirmation: Complaint of ; Clinical Dx: Chest pain ; Classification: Medical ; Clinical Service: Emergency medicine ; Code: PNED ; Probability: 0 ; Diagnosis Code: [id number] ED Height and Weight Height Source : Stated Height Entry Format : [place] Height, Feet : 5 ft(Converted to: 152 cm, 60 Inch) Height, Inches : 3 Inch(Converted to: 0 ft 3 Inch, 7.62 cm) Clinical Height : 160.02 cm Weight Source, ED : Critical estimated dosing weight Weight Entry Format : [place] Weight, Pounds : 154 lb Clinical Dosing Weight : 70 kg Body Surface Area (BSA) : 1.73 m2 Body Mass Index : 27.3 kg/m2 (HI) [place] Body Weight (IBW) : 52.02 kg CHETNA BRASWELL RN-Resource - 07/18/2021 15:10 EDT Pain [...] of the form. Electronically signed by Sivan [facility] Conversion Corporate Concierge Cerner at 02/04/2023 2:06 PM CDT documented in this encounter Plan of Treatment Not on file documented as of this encounter Visit Diagnoses Not on filedocumented in this encounter Care Teams Clinical Training Coordinator Relationship Specialty Start Date End Date Jay Howell MD [address] [place] [phone] PCP - General Emergency Medicine 11/12/23 documented as of this encounter
--- OUTSIDE RECORDS SUMMARY | 2025-08-16 09:19 | XMS_ITS | Clinical Summary ---
Author Organization [facility] [place] [address] Care Team Providers Care Protocol Manager Name Role Phone Jay Howell MD Primary Care Provider [phone] Allergies Active Allergy Reactions Criticality Noted Date [...] contusion - Repeat CTH 0500 pending - [facility] elevated - Na goal 140-145 - Keppra [...] falls Continue outpatient follow-up with established fitness director; consider closer follow up with continued weakness/repeat falls. EF 64% Secondary open-angle glaucoma of right eye, ileana re stage 12/09/2015 Primary hypertension 09/30/2014 Overview (01/24/2024): -Resume home medication when appropriate Coronary artery disease invo lving coronary bypass graft of [place] heart without angina pectoris 09/30/2014 Overview (01/24/2024): Last Assessment & Plan: She has a known history of coronary artery disease. She has denied any chest pain. Her last heart catheterization was November 25, 2022 at [facility] in [place] showing: -last C 11/25/2022- A. CAD s/p [...] of chest/PE protocol. Patient was sent to [facility] radiology department for CT scan today. [...] Type Department Care Team Description 07/16/2025 Telephone [facility] [address] [place] [address] Kimmie Cabrera 07/09/2025 Telephone [facility] [address] [place] [address] Kimmie Cabrera 07/02/2025 Telephone [facility] [address] [place] [address] Returned Call 05/27/2025 Telephone [facility] [address] [place] [address] [facility], Physician, from Last 3 Months Immunizations Immunization [...] place to sleep or slept in a mcc (including now)? No 08/06/2024 CAGE ASSESSMENT Answer [...] drink first t kathleen in the morning (EYE-RABBIT DRESSER) to steady your nerves or to get rid of a hangover? 0 03/20/2024 CAGE Questionnaire Score 0 024 Utilities Answer Date Recorded In the past 12 months has th e [employer], [employer], oil, or water [employer] threatened to shut off services in your [...] Scan 1940 [facility]-Medicare Annual Wellness (AWV) 1940 [facility]-/Child/Adol SDOH Screenings 1940 Diabetes: Dental Exam 12/23/1949 [facility]-Hepatitis A Vaccines (1 of 2 - Risk 2-dose series) 12/23/1958 [facility]-Zoster Vaccines (1 of 2) 12/23/1958 [facility]-RSV Vaccine: 60+ Years or (1 - 1-dose 75+ series) 12/23/2014 [facility]-Diabetes: Hemoglobin A1C 09/17/2024 03/20/2024, 01/20/2024 [facility]- SDOH Screenings 02/04/2025 [facility]-Adult SDOH Screenings 02/04/2025 08/06/2024 [facility]-Depression Screening 04/03/2025 04/03/2024 [facility]-ECACC-35 Vaccine ( season) 2025 12/09/2021, 02/17/2021, 01/27/2021 [...] this topic Medical Devices Implanted Type Area Office Support Assistant Device Identifier Shelf Expiration Date Model / Serial / Lot Nail 10s Intertan 10mm X 36cm 130d Left - [id number] Implanted:Qty: 1 on 03/20/2024 by Haroldo Braden MD at [facility] Nail Left: Femur [id number] 08/04/2033 [id number] / / [id number] Nail Tibial [id number] - [id number] Implanted:Qty: 1 on 08/06/2024 by Haroldo Braden MD at [facility] Nail Right: Tibia [employer] ([employer])-[id number] 09/15/2033 [id number] / / [id number] Lag/Comp Screw Kit 90/85 - [id number] Implanted:Qty: 1 on 03/20/2024 by Haroldo Braden MD at [facility] Screw Left: Femur [employer]-[id number] 09/26/2033 [id number] / / [id number] Screw Trigen 5.0mm For Metanail 37.5mm - [id number] Implanted:Qty: 1 on 03/20/2024 by Haroldo Braden MD at [facility] Screw Left: Femur [employer]-[id number] 08/19/2033 [id number] / / [id number] Screw Locking Adv T2 T2 D5xl60 - [id number] Implanted:Qty: 1 on 08/06/2024 by Haroldo Braden MD at [facility] Screw Right: Tibia [employer] ([facility])-[id number] 05/16/2034 [id number] / / [id number] Screw Locking Adv T2 T2 D5xl50 - [id number] Implanted:Qty: 1 on 08/06/2024 by Haroldo Braden MD at [facility] Screw Right: Tibia [employer] ([facility])-[id number] 01/14/2034 [id number] / / [id number] Screw Locking T2 D5xl42.5 - [id number] Implanted:Qty: 1 on 08/06/2024 by Haroldo Braden MD at [facility] Screw Right: Tibia [employer] ([employer])-[id number] 68 05/16/2034 [id number] / / [id number] Screw Locking T2 D5x35 - [id number] Implanted:Qty: 1 on 08/06/2024 by Haroldo Braden MD at [facility] Screw Right: Tibia [employer] ([facility])-[id number] 68 05/16/2034 [id number] / / [id number] Procedures Procedure Name Priority Date/Time Associated Diagnosis [...] Adults <6.0% Children and Adolescents <7.5% Source: [place] [employer]. Standards of medical care in diabetes,2017. Diabetes Care.2017:40 (suppl 1):S1-S135. HbA1c assay performed by an ion-exchange chromatography method that is certified traceable to the DCCT. Gerhard Zazueta MD LAB BLOOD ORDERABLES Final Resu lt [facility] [address] [place] [address] from Last 3 Months or Most Recently Relevant to Health Maintenance Insurance MEDICARE Advance Directives Documents on File Type Date Recorded Patient Scale Tester Expl anation Advance Directives and Livin g [...] Patient has decision-making capacity? Yes Care Teams Protocol Manager Relationship Specialty Start Date End Date Jay Howell MD [address] [place], [place] [address] PCP - General 03/08/21
--- OUTSIDE RECORDS SUMMARY | 2025-08-16 09:19 | XMS_ITS | Encounter Summary ---
Author Organization [employer] ([place], [place], [place], [place]) Address [address] [place] [address] Care Team Providers Care Knowledge Management Advisor Name Role Phone Jay Howell MD Primary Care Provider [phone] Encounter Details Date Type Department Care Team (Late st Contact Info) Description 07/18/2021 Transcribed Document [facility] [place] [address] [place] [address] ProviderJessie MD [address] [place], [place] [address] Social History Tobacco Use Types Packs/Day Years [...] EDT Electronically signed by Gayle Finnegan Conversion Sewing Department Supervisor Cerner at 02/04/2023 1:59 PM CDT documented in this encounter Plan of Treatment Not on file documented as of this encounter Visit Diagnoses Not on filedocumented in this encounter Care Teams Knowledge Management Advisor Relationship Specialty Start Date End Date Jay Howell MD [address] [place] [phone] PCP - General Emergency Medicine 11/12/23 documented as of this encounter
[2025-08-16 09:20] LABS: Bilirubin,Urine Negative (Negative); Color,Urine YELLOW (Yellow); Glucose,Urine (UA) Negative (Negative); Ketones,Urine Negative (Negative); Leukocyte Esterase,Urine TRACE (Negative); PH,Urine 6.0 (5.0-8.5); Protein,Urine Negative (Negative); Specific Gravity, Urine 1.020 (1.005-1.030); Urobilinogen,Urine 0.2 EU/dl (0.2)
--- OUTSIDE RECORDS SUMMARY | 2025-08-16 09:20 | XMS_ITS | Encounter Summary ---
Author Organization [email or web address] ([place], [place], [place], [place]) Address [address] [place] [address] Care Team Providers Care Apartment Maintenance Manager Name Role Phone Jay Howell MD Primary Care Provider [phone] Encounter Details Date Type Department Care Team (Late st Contact Info) Description 03/19/2021 Transcribed Document [facility] [place] [facility] [place] [address] ProviderJessie MD [address] [place] [phone] Social History Tobacco Use Types Packs/Day Years [...] 2. 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 3. Extensive vascular calcification. 4. Severe centrilobular emphysema. CARD: no immediate intervention needed f/u her torch brazer History of atrial fibrillation, rate controlled. We [...] 03/19/2021 06:06 EDT Electronically signed by Sivan [facility] Conversion Eligibility Clerk Cerner at 02/04/2023 2:09 PM CDT documented in this encounter Plan of Treatment Not on file documented as of this encounter Visit Diagnoses Not on filedocumented in this encounter Care Teams Apartment Maintenance Manager Relationship Specialty Start Date End Date Jay Howell MD [address] [place] [phone] PCP - General Emergency Medicine 11/12/23 documented as of this encounter
--- OUTSIDE RECORDS SUMMARY | 2025-08-16 09:20 | XMS_ITS | Encounter Summary ---
Author Organization [employer] ([place], [place], [place], [place]) Address [address] [place] [address] Care Team Providers Care Medical Billing Instructor Name Role Phone Jay Howell MD Primary Care Provider [phone] Encounter Details Date Type Department Care Team (Late st Contact Info) Description 08/27/2020 Transcribed Document [facility] [place] [address] [place] [address] ProviderJessie MD [address] [place], [place] [phone] Social History Tobacco Use Types Packs/Day Years Used Date Smoking Tobacco: Never Assessed Comments Unknown Sex and Gender Information Value Date Recorded Sex Assigned at Not on file Legal Sex Female 7:30 PM CDT Gender Identity Not on file Sexual Orientation Not on file documented as of this encounter Miscellaneous Notes * Cerner Conversion Note - Historical ProviderMD - 08/27/2020 3:10 PM GAS TORCH BRAZIER Patient: SKYLER MONTOYA Age: 79 Years Sex: [...] (High) 08/27/2020 08:41 EST Electronically signed by [facility] Conversion Mgmt Consultant Cerner at 02/04/2023 2:06 PM CDT documented in this encounter Plan of Treatment Not on file documented as of this encounter Visit Diagnoses Not on filedocumented in this encounter Care Teams Medical Billing Instructor Relationship Specialty Start Date End Date Jay Howell MD [address] [place] [phone] PCP - General Emergency Medicine 11/12/23 documented as of this encounter
--- OUTSIDE RECORDS SUMMARY | 2025-08-16 09:20 | XMS_ITS | Encounter Summary ---
Author Organization [employer] ([place], [place], [place], [place]) Address [address] [place] [address] Care Team Providers Care Wind Turbine Installer Name Role Phone Jay Howell MD Primary Care Provider [phone] Encounter Details Date Type Department Care Team (Late st Contact Info) Description 03/19/2021 Transcribed Document [facility] [place] [address] [place] [address] ProviderJessie MD [address] [place] [phone] Social History Tobacco Use Types Packs/Day Years [...] 03/19/2021 15:48 EDT by Krystina Giang V, Refrigeration Unit Repairer Software Database Architect Final Discharge Planning Discharge Arrangements : Patient [...] : Yes Discharge To Care Management : Home/Residential/Senior Living or Self Care -01 Krystina Giang V, Refrigeration Unit Repairer [facility] [place] 03/19/2021 15:48 EDT Final Narrative Note Final Narrative Note : DC home with spouse. Follow up with outpatient Physical therapy in home town. IM signed. Krystina Giang V Refrigeration Unit Repairer [facility] - 03/19/2021 15:48 EDT Electronically signed by [facility] Conversion Director Of People Cerner at 02/04/2023 2:08 PM CDT documented in this encounter Plan of Treatment Not on file documented as of this encounter Visit Diagnoses Not on filedocumented in this encounter Care Teams Wind Turbine Installer Relationship Specialty Start Date End Date Jay Howell MD [address] [place] [phone] PCP - General Emergency Medicine 11/12/23 documented as of this encounter
--- OUTSIDE RECORDS SUMMARY | 2025-08-16 09:20 | XMS_ITS | Encounter Summary ---
Author Organization [employer] ([place], [place], [place], [place]) Address [address] [place] [address] Care Team Providers Care Manager News Name Role Phone Jay Howell MD Primary Care Provider [phone] Encounter Details Date Type Department Care Team (Late st Contact Info) Description 08/27/2020 Transcribed Document [facility] [place] [address] [place] [address] ProviderJessie MD [address] [place] [address] Social History Tobacco Use Types Packs/Day Years Used Date Smoking Tobacco: Never Assessed Comments Unknown Sex and Gender Information Value Date Recorded Sex Assigned at Not on file Legal Sex Female 7:30 PM CDT Gender Identity Not on file Sexual Orientation Not on file documented as of this encounter Miscellaneous Notes * Cerner Conversion Note - Historical ProviderMD - 08/27/2020 2:40 PM RETOUCHER WOCN Inpatient Documentation Entered On: 08/27/2020 14:42 [...] Past Medical History/Comorbidities : *Operation 08/26 RIGHT GENERAL MAGISTRATE access - ultrasound guided Aortogram with LEFT lower extremity run-off LEFT PT angioplasty ([id number] Nanocross) LEFT peroneal angioplasty (2.5-1e880ap Nanocross) RIGHT GENERAL MAGISTRATE closure (Angioseal) LEFT leg debridement WOCN Assessment [...] Ulcer WOCN Wound Pressure Ulcer Documentation : Wreyknqka-Fupldl-Pjzo Abnormality: Leg Left Lower, Anterior on 08/27/2020 14:38 by Sujata Mckee Rn-Enterostomal I/W/A Present on Admission to Hospital: Yes I/W/A Type: Other: a/p debridement I/W/A Dressing Status: Moist I/W/A Dressing Activity: Assessed, Dressing changed I/W/A Wound Date of Dressing Change: :[id number]:[id number]:0 I/W/A Wound Bed Description: Full-thickness I/W/A Bed [...] Initial set-up application NPWT Inpatient Start Date: :[id number]:0 NPWT Device Used: Renasys Type of Foam/Gauze Applied: Black Foam Number of Black Foam Gauze Applied: 1 Number of TRAC Pads Applied: 1 NPWT Pressure: Continuous NPWT Pressure Settin NPWT Canister Changed: Yes I/W/A Incision/Wound Healing: Initial WOCN Ostomy Documentation : No ostomy assessments reported. Sujata Mckee Rn-Enterostomal - 08/27/2020 14:40 EST Electronically signed by Sivan [facility] Conversion Flight Manager Cerner at 02/04/2023 1:56 PM CDT documented in this encounter Plan of Treatment Not on file documented as of this encounter Visit Diagnoses Not on filedocumented in this encounter Care Teams Manager News Relationship Specialty Start Date End Date Jay Howell MD [address] [place] [phone] PCP - General Emergency Medicine 11/12/23 documented as of this encounter
--- OUTSIDE RECORDS SUMMARY | 2025-08-16 09:20 | XMS_ITS | Encounter Summary ---
Author Organization [employer] ([place], [place], [place], [place]) Address [address] [place] [address] Care Team Providers Care Laminator Name Role Phone Jay Howell MD Primary Care Provider [phone] Encounter Details Date Type Department Care Team (Late st Contact Info) Description 08/27/2020 Transcribed Document [facility] [place] [address] [place] [address] ProviderJessie MD [address] [place] [address] Social History Tobacco Use Types Packs/Day Years Used Date Smoking Tobacco: Never Assessed Comments Unknown Sex and Gender Information Value Date Recorded Sex Assigned at Not on file Legal Sex Female 7:30 PM CDT Gender Identity Not on file Sexual Orientation Not on file documented as of this encounter Miscellaneous Notes * Cerner Conversion Note - Jessie Yuen MD - 08/27/2020 5:54 PM GIFTED PROGRAM TEACHER Patient: SKYLER MONTOYA Age: 79 Years [...] multiple stent placements. The patient presented to [facility] ER after recent fall with [...] Vitamins oral tablet, 1 Tab, Oral, Daily [place] 7.5 mg-325 mg oral tablet, 1 Tab, [...] (High) 08/27/2020 08:41 EST Electronically signed by [facility], [facility] Conversion Shop Blacksmith Cerner at 02/04/2023 2:05 PM CDT documented in this encounter Plan of Treatment Not on file documented as of this encounter Visit Diagnoses Not on filedocumented in this encounter Care Teams Laminator Relationship Specialty Start Date End Date Jay Howell MD [address] [place] [phone] PCP - General Emergency Medicine 11/12/23 documented as of this encounter
--- OUTSIDE RECORDS SUMMARY | 2025-08-16 09:20 | XMS_ITS | Encounter Summary ---
Author Organization [employer] ([place], [place], [place], [place]) Address [address] [place] [address] Care Team Providers Care Mica Washer Gluer Name Role Phone Jay Howell MD Primary Care Provider [phone] Encounter Details Date Type Department Care Team (Late st Contact Info) Description 08/28/2020 Transcribed Document [facility] Medicine [address] [place] [address] ProviderJessie MD [address] [place], [place] [address] Social History Tobacco Use Types Packs/Day Years Used Date Smoking Tobacco: Never Assessed Comments Unknown Sex and Gender Information Value Date Recorded Sex Assigned at Not on file Legal Sex Female 7:30 PM CDT Gender Identity Not on file Sexual Orientation Not on file documented as of this encounter Miscellaneous Notes * Cerner Conversion Note - Historical ProviderMD - 08/28/2020 5:00 PM FOAM MACHINE OPERATOR Chart Check - Review Order Profile Entered On: 08/28/2020 18:04 EST Performed On: 08/28/2020 17:00 EST by Jose L Jones RN Chart Check All Active Orders Reviewed : Yes Jose L Jones RN - 08/28/2020 18:04 EST documented in this encounter Plan of Treatment Not on file documented as of this encounter Visit Diagnoses Not on filedocumented in this encounter Care Teams Mica Washer Gluer Relationship Specialty Start Date End Date Jay Howell MD [address] [place] [phone] PCP - General Emergency Medicine 11/12/23 documented as of this encounter
--- OUTSIDE RECORDS SUMMARY | 2025-08-16 09:20 | XMS_ITS | Encounter Summary ---
Author Organization [employer] ([place], [place], [place], [place]) Address [address] [place] [address] Care Team Providers Care Labor Service Representative Name Role Phone Jay Howell MD Primary Care Provider [phone] Encounter Details Date Type Department Care Team (Late st Contact Info) Description 03/19/2021 Transcribed Document [facility] [place] [facility] [place] [address] ProviderJessie MD [address] [place] [address] Social History Tobacco Use Types Packs/Day Years [...] on filedocumented in this encounter Care Teams Labor Service Representative Relationship Specialty Start Date End Date Jay Howell MD [address] [place] [phone] PCP - General Emergency Medicine 11/12/23 documented as of this encounter
--- OUTSIDE RECORDS SUMMARY | 2025-08-16 09:20 | XMS_ITS | Encounter Summary ---
Author Organization [employer] ([place], [place], [place], [place]) Address [address] [place] [address] Care Team Providers Care Staff Mechanical Engineer Name Role Phone Jay Howell MD Primary Care Provider [phone] Encounter Details Date Type Department Care Team (Late st Contact Info) Description 08/28/[address] [facility] [place] Family Medicine [address] [place] [address] ProviderJessie MD [address] [place] [address] Social History Tobacco Use Types Packs/Day Years Used Date Smoking Tobacco: Never Assessed Comments Unknown Sex and Gender Information Value Date Recorded Sex Assigned at Not on file Legal Sex Female 7:30 PM CDT Gender Identity Not on file Sexual Orientation Not on file documented as of this encounter Miscellaneous Notes * Cerner Conversion Note - Historical MD Alpa - 08/28/2020 9:30 AM BODY COMPONENT ENGINEER Venetian Blind Assembler Inpatient Document Entered On: 08/28/2020 11:43 EST Performed On: 08/28/2020 11:40 EST by KARRIE FERNANDES Rn-Educator Diabetes Venetian Blind Assembler Inpatient Document Reason for Venetian Blind Assembler Visit : Physician order Endocrine/Metabolic History : [...] Good Readiness to Learn : Demonstration KARRIE FERNANEDS, Rn-Educator Diabetes - 08/28/2020 11:40 EST Education, [...] 08/28/2020 11:40 EST Electronically signed by Sivan [facility] Conversion Faculty Neuropsychologist Cerner at 02/04/2023 2:21 PM CDT documented in this encounter Plan of Treatment Not on file documented as of this encounter Visit Diagnoses Not on filedocumented in this encounter Care Teams Staff Mechanical Engineer Relationship Specialty Start Date End Date Jay Howell MD [address] [place] [phone] PCP - General Emergency Medicine 11/12/23 documented as of this encounter
--- OUTSIDE RECORDS SUMMARY | 2025-08-16 09:21 | XMS_ITS | Encounter Summary ---
Author Organization [employer] ([place], [place], [place], [place]) Address [address] [place] [address] Care Team Providers Care Weathercaster Name Role Phone Jay Howell MD Primary Care Provider [phone] Encounter Details Date Type Department Care Team (Late st Contact Info) Description 08/28/2020 Transcribed Document [facility] [place] [address] [place] [address] ProviderJessie MD [address] [place], [place] [address] Social History Tobacco Use Types Packs/Day Years Used Date Smoking Tobacco: Never Assessed Comments Unknown Sex and Gender Information Value Date Recorded Sex Assigned at Not on file Legal Sex Female 7:30 PM CDT Gender Identity Not on file Sexual Orientation Not on file documented as of this encounter Miscellaneous Notes * Cerner Conversion Note - Historical ProviderMD - 08/28/2020 9:22 AM EXPORT CLERK Patient: SKYLER MONTOYA Age: 79 Years [...] (High) 08/28/2020 07:35 EST Electronically signed by [facility], [facility] Conversion Windsmith Cerner at 02/04/2023 2:12 PM CDT documented in this encounter Plan of Treatment Not on file documented as of this encounter Visit Diagnoses Not on filedocumented in this encounter Care Teams Weathercaster Relationship Specialty Start Date End Date Jay Howell MD [address] [place] [phone] PCP - General Emergency Medicine 11/12/23 documented as of this encounter
--- OUTSIDE RECORDS SUMMARY | 2025-08-16 09:21 | XMS_ITS | Encounter Summary ---
Author Organization [facility] Address [address] [place] [id number] Care Team Providers Care Otm Consultant Name Role Phone Jay Howell MD Primary Care Provider Encounter Details Date Type Department Care Team (Late st Contact Info) Description 07/16/2025 Telephone [facility] [address] [place] [address] [place] [address] Social History Tobacco Use Types Packs/Day Years [...] drink first t kathleen in the morning (EYE-WATCH ASSEMBLY INSTRUCTOR) to steady your nerves or to get [...] documented as of this encounter Care Teams Otm Consultant Relationship Specialty Start Date End Date Jay Howell MD [address] [place], [place] [address] PCP - General 03/08/21 documented as of this encounter
--- OUTSIDE RECORDS SUMMARY | 2025-08-16 09:21 | XMS_ITS | Encounter Summary ---
Author Organization [facility] Address [address] [place] [id number] Care Team Providers Care Emergency Medical Dispatcher Name Role Phone Jay Howell MD Primary Care Provider Encounter Details Date Type Department Care Team (Late st Contact Info) Description 07/09/2025 Telephone [facility] [address] [place] [address] [place] [address] Social History Tobacco Use Types Packs/Day Years [...] drink first t kathleen in the morning (EYE-GEAR MILLING MACHINE SET UP OPERATOR) to steady your nerves or to [...] documented as of this encounter Care Teams Emergency Medical Dispatcher Relationship Specialty Start Date End Date Jay Howell MD [address] [place], [place] [address] PCP - General 03/08/21 documented as of this encounter
--- OUTSIDE RECORDS SUMMARY | 2025-08-16 09:21 | XMS_ITS | Encounter Summary ---
Author Organization [employer] ([place], [place], [place], [place]) Address [address] [place] [address] Care Team Providers Care Education And Training Manager Name Role Phone Jay Howell MD Primary Care Provider [phone] Encounter Details Date Type Department Care Team (Late st Contact Info) Description 08/28/2020 Transcribed Document [facility] [place] [address] [place] [address] ProviderJessie MD [address] [place] [address] Social History Tobacco Use Types Packs/Day Years Used Date Smoking Tobacco: Never Assessed Comments Unknown Sex and Gender Information Value Date Recorded Sex Assigned at Not on file Legal Sex Female 7:30 PM CDT Gender Identity Not on file Sexual Orientation Not on file documented as of this encounter Miscellaneous Notes * Cerner Conversion Note - Jessie Yuen MD - 08/28/2020 10:32 AM MANAGER CLIENT SUPPORT Patient: SKYLER MONTOYA Age: 79 years Sex: [...] level of muscle per surgery *Operation RIGHT COMMUNICATIONS MARKETING INTERN access - ultrasound guided Aortogram with LEFT lower extremity run-off LEFT PT angioplasty (2.5-3u287xh Nanocross) LEFT peroneal angioplasty (2.5-1x649bq Nanocross) RIGHT COMMUNICATIONS MARKETING INTERN closure (Angioseal) LEFT leg debridement 08/28/20 seen [...] Level 8.8 mg/dL 08/27/2020 03:40 MICRO: ACC: [id number] ORDER: Culture Wound and Stain DATE: 08/25/2020 05:00 SOURCE: Wound SITE: Leg Lower L Reports Final 08/28/2020 08:57 No growth Pre 08/26/2020 06:23 No growth GS 08/25/2020 07:26 No organisms seen. Few White Blood Cells Rare epithelial cells == ACC: [id number] ORDER: Culture AFB and Stain DATE: 08/26/2020 13:56 SOURCE: Surgical Swab SITE: Leg Lower L Reports AFS 08/27/2020 13:07 No Acid Fast Bacilli seen == ACC: [id number] ORDER: Culture Anaerobic DATE: 08/26/2020 13:56 SOURCE: Surgical Swab SITE: Leg Lower L Reports Pre 08/28/2020 07:01 No Anaerobic growth Pre 08/27/2020 07:47 Culture in progress == ACC: [id number] ORDER: Culture Wound and Stain DATE: 08/26/2020 15:23 SOURCE: Surgical Swab SITE: Leg Lower L Reports Pre 08/27/2020 07:14 No growth GS 08/26/2020 18:13 Few White Blood Cells No organisms seen. == ACC: [id number] ORDER: Culture Fungus DATE: 08/26/2020 13:56 SOURCE: Surgical Swab SITE: Leg Lower L Reports SINDI 08/26/2020 16:09 No Fungal elements seen == ACC: [id number] ORDER: Culture Blood DATE: 08/25/2020 05:01 SOURCE: Blood SITE: Reports Pre 08/28/2020 06:01 No growth at 3 days. Pre 08/27/2020 06:01 No growth at 2 days. Pre 08/26/2020 06:01 No growth at 1 day. Pre 08/25/2020 23:02 Culture less than 24 Hrs old == ACC: [id number] ORDER: Culture Blood DATE: 08/25/2020 05:01 SOURCE: Blood SITE: Reports Pre 08/28/2020 06:01 No growth at 3 days. Pre 08/27/2020 06:01 No growth at 2 days. Pre 08/26/2020 06:01 No growth at 1 day. Pre 08/25/2020 23:02 Culture less than 24 Hrs old == Radiology Results (Last 48 hours) [id number] -- 08/25/2020 05:53 CT Abdomen WO W [...] filedocumented in this encounter Care Teams Education And Training Manager Relationship Specialty Start Date End Date Jay Howell MD [address] [place] [phone] PCP - General Emergency Medicine 11/12/23 documented as of this encounter
--- OUTSIDE RECORDS SUMMARY | 2025-08-16 09:21 | XMS_ITS | Encounter Summary ---
Author Organization [employer] ([place], [place], [place], [place]) Address [address] [place] [address] Care Team Providers Care Rumper Name Role Phone Jay Howell MD Primary Care Provider [phone] Encounter Details Date Type Department Care Team (Late st Contact Info) Description 08/28/2020 Transcribed Document [facility] [place] Family Medicine [address] [place] [address] ProviderJessie MD [address] [place] [address] Social History Tobacco Use Types Packs/Day Years Used Date Smoking Tobacco: Never Assessed Comments Unknown Sex and Gender Information Value Date Recorded Sex Assigned at Not on file Legal Sex Female 7:30 PM CDT Gender Identity Not on file Sexual Orientation Not on file documented as of this encounter Miscellaneous Notes * Cerner Conversion Note - Historical ProviderMD - 08/28/2020 10:17 AM GEOTECHNICIAN Attempt to Treat, OT Entered On: 08/28/2020 [...] ANGELA Bello OTR/Sophie - 08/28/2020 14:59 EST documented in this encounter Plan of Treatment Not on file documented as of this encounter Visit Diagnoses Not on filedocumented in this encounter Care Teams Rumper Relationship Specialty Start Date End Date Jay Howell MD [address] [place] [phone] PCP - General Emergency Medicine 11/12/23 documented as of this encounter
--- OUTSIDE RECORDS SUMMARY | 2025-08-16 09:21 | XMS_ITS | Encounter Summary ---
Author Organization [employer] ([place], [place], [place], [place]) Address [address] [place] [address] Care Team Providers Care Vision Impaired Teacher Name Role Phone Jay Howell MD Primary Care Provider [phone] Encounter Details Date Type Department Care Team (Late st Contact Info) Description 08/28/2020 Transcribed Document [facility] [place] [address] [place] [address] ProviderJessie MD [address] [place] [address] Social History Tobacco Use Types Packs/Day Years Used Date Smoking Tobacco: Never Assessed Comments Unknown Sex and Gender Information Value Date Recorded Sex Assigned at Not on file Legal Sex Female 7:30 PM CDT Gender Identity Not on file Sexual Orientation Not on file documented as of this encounter Miscellaneous Notes * Cerner Conversion Note - Historical ProviderMD - 08/28/2020 10:16 AM ALMOND PASTE MIXER Attempt to Treat, PT Entered On: 08/28/2020 [...] - 08/28/2020 10:27 EST Electronically signed by [facility], [facility] Conversion Computer Programming Supervisor Cerner at 02/04/2023 2:14 PM CDT documented in this encounter Plan of Treatment Not on file documented as of this encounter Visit Diagnoses Not on filedocumented in this encounter Care Teams Vision Impaired Teacher Relationship Specialty Start Date End Date Jay Howell MD [address] [place] [phone] PCP - General Emergency Medicine 11/12/23 documented as of this encounter
--- OUTSIDE RECORDS SUMMARY | 2025-08-16 09:21 | XMS_ITS | Encounter Summary ---
Author Organization [employer] ([place], [place], [place], [place]) Address [address] [place] [address] Care Team Providers Care Dredge Mate Name Role Phone Jay Howell MD Primary Care Provider [phone] Encounter Details Date Type Department Care Team (Late st Contact Info) Description 08/28/2020 Transcribed Document [facility] [place] [address] [place] [address] ProviderJessie MD [address] [place] [address] Social History Tobacco Use Types Packs/Day Years Used Date Smoking Tobacco: Never Assessed Comments Unknown Sex and Gender Information Value Date Recorded Sex Assigned at Not on file Legal Sex Female 7:30 PM CDT Gender Identity Not on file Sexual Orientation Not on file documented as of this encounter Miscellaneous Notes * Cerner Conversion Note - Jessie Yuen MD - 08/28/2020 11:43 AM 8TH GRADE MATHEMATICS TEACHER Patient: SKYLER MONTOYA Age: 79 years Sex: Female : 1940 Associated Diagnoses: None Author: SLICK BRADLEY, [facility] Ms. Montoya is 79 yo female admitted [...] Slick Bradley, Dana Electronically signed by Sivan [facility] Conversion Quality Control Industrial Engineer Cerner at 02/04/2023 1:57 PM CDT documented in this encounter Plan of Treatment Not on file documented as of this encounter Visit Diagnoses Not on filedocumented in this encounter Care Teams Dredge Mate Relationship Specialty Start Date End Date Jay Howell MD [address] [place] [phone] PCP - General Emergency Medicine 11/12/23 documented as of this encounter
--- OUTSIDE RECORDS SUMMARY | 2025-08-16 09:21 | XMS_ITS | Encounter Summary ---
Author Organization [employer] ([place], [place], [place], [place]) Address [address] [place] [address] Care Team Providers Care Corporate Scheduler Name Role Phone Jay Howell MD Primary Care Provider [phone] Encounter Details Date Type Department Care Team (Late st Contact Info) Description 08/28/2020 Transcribed Document [facility] [place] Family Medicine [address] [place] [address] ProviderJessie MD [address] [place] [address] Social History Tobacco Use Types Packs/Day Years Used Date Smoking Tobacco: Never Assessed Comments Unknown Sex and Gender Information Value Date Recorded Sex Assigned at Not on file Legal Sex Female 7:30 PM CDT Gender Identity Not on file Sexual Orientation Not on file documented as of this encounter Miscellaneous Notes * Cerner Conversion Note - Jessie Yuen MD - 08/28/2020 3:33 PM KINDER TEACHER On Going Discharge Planning Entered On: 08/28/2020 15:37 EST Performed On: 08/28/2020 15:33 EST by KAVITA PELLETIER RN-Clinical Documentation ClerkPulp Screen Operator Progress Note Discharge Arrangements : Patient [...] Meeting Medical Necessity : Yes KAVITA PELLETIER RN-Clinical Documentation Clerk - 08/28/2020 15:33 EST Narrative Progress Note Narrative Progress Note : Cx's still pending. IV Vanc/Dapto. Vasc s/o. Pt will need NPWT-CM will obtain prior to dc. List of DATA CONTROL CLERK's for [place] given to pt. She [...] past after her SIMONA and went to [facility] prior to home with HH. She is agreeable to look at list of DATA CONTROL CLERK to make an informed decision based on quality and resource use information. Cx's are pending to determine need for IV abx at home. Likely dc in a few days. CM will continue to follow. KAVITA PELLETIER RN-Clinical Documentation Clerk - 08/27/20 15:14:36 KAVITA PELLETIER RN-Clinical Documentation Clerk - 08/28/2020 15:33 EST Electronically signed by Sivan [facility] Conversion Book Store Associate Cerner at 02/04/2023 2:13 PM CDT documented in this encounter Plan of Treatment Not on file documented as of this encounter Visit Diagnoses Not on filedocumented in this encounter Care Teams Corporate Scheduler Relationship Specialty Start Date End Date Jay Howell MD [address] [place] [phone] PCP - General Emergency Medicine 11/12/23 documented as of this encounter
--- OUTSIDE RECORDS SUMMARY | 2025-08-16 09:21 | XMS_ITS | Encounter Summary ---
Author Organization [facility] ([place], [place], [place], [place]) Address [address] [place] [address] Care Team Providers Care Living Specialist Name Role Phone Jay Howell MD Primary Care Provider [phone] Encounter Details Date Type Department Care Team (Late st Contact Info) Description 08/28/2020 Transcribed Document [facility] Family Medicine [address] [place] [address] ProviderJessie MD [address] [place] [address] Social History Tobacco Use Types Packs/Day Years Used Date Smoking Tobacco: Never Assessed Comments Unknown Sex and Gender Information Value Date Recorded Sex Assigned at Not on file Legal Sex Female 7:30 PM CDT Gender Identity Not on file Sexual Orientation Not on file documented as of this encounter Miscellaneous Notes * Cerner Conversion Note - Jessie ProviderMD - 08/28/2020 1:08 PM KETTLE GIRL Patient: SKYLER MONTOYA Age: 79 Years Sex: [...] distal ecchymosis. Palpable DP pulse, audible biphasic WELDING SPECIALIST signal. Neuromotor intact. VTE Risk Total Score [...] LEFT PT occlusion - distal - 08/26/2020 ([facility];Mehreen) RIGHT MATHS TUTOR access - ultrasound guided Aortogram with LEFT lower extremity run-off LEFT PT angioplasty ([id number] Nanocross) LEFT peroneal angioplasty ([id number] Nanocross) RIGHT MATHS TUTOR closure (Angioseal) LEFT leg debridement - H&H, [...] for tomorrow's vac change. - Rx for [place] 5/325mg q4-6h prn pain #20 on chart. - Will need RLE angio with revascularization in near future. - F/u 1 wk w/ Dr. Verde in [facility] (09/08 at 1245) [...] 24 Hours) Radiology Results (Last 48 hours) [id number] -- 08/25/2020 05:53 CT Abdomen WO W [...] nitrofurantoin (blisters, blisters) Electronically signed by Sivan [facility] Conversion Sorter Laundry Articles Cerner at 02/04/2023 1:58 PM CDT documented in this encounter Plan of Treatment Not on file documented as of this encounter Visit Diagnoses Not on filedocumented in this encounter Care Teams Living Specialist Relationship Specialty Start Date End Date Jay Howell MD [address] [place] [id number] PCP - General Emergency Medicine 11/12/23 documented as of this encounter
[2025-08-16 09:29] LABS: Bacteria,Urine 1+ /lpf
== END 2025-08-16 23:59 | disposition home or self-care (01) ==
PROVIDERS: PCP Nurse Practitioner Family; Visit Provider Nurse Practitioner Family
DX: N39.0 Urinary tract infection, site not specified (principal)
CPT/HCPCS: 81001

== ENCOUNTER 2025-08-28 08:20 | Outpatient (CLI) | payer MEDICARE, SELFPAY ==
--- OUTSIDE RECORDS SUMMARY | 2025-02-05 07:00 | XMS_ITS | Encounter Summary ---
Author Organization [place] [address] Care Team Providers Care Public Improvement Inspector Name Role Phone No Pcp, Per Patient Primary Care Provider Evelyne prabhakar Encounter Details Date Type Department Care Team (Latest Contact Info) Description 02/05/2025 8:00 AM EDT Hospital Encounter SE Referral Lab 1 [place] [phone] Valentino Ugalde MD [address] [facility] [address] [place] [address] Encounter for general adult medical examination without abnormal findings Social History Tobacco Use Types Packs/Day Years Used Date Smoking Tobacco: Former Cigarettes Q uit: 1991 Passive Smoke Exposure: Past Smokeless Tobacco: Never Alcohol Use Standard Drinks/Week Comments Not Currently 0 (1 standard drink = 0.6 oz pur e alcohol) [facility] Utilities Answer Date Recorded In the past 12 months has [employer] electric, gas, oil, or water company threatened to shut off services in your home? No 06/23/2025 Overall Financial Resource Strain (CARDIA) Answe r Date Recorded How hard is it for you to pa y for the very basics like food, housing, medical care, and heating? Not very hard 06/23/2025 PHQ-2 Answer Date Recorded PHQ-2 Total Score 0 06/23/2025 [facility] [place] of Occupat ional Health - Occupational Stress [...] money to get more. Never true 06/23/2025 [facility] IP Transportation Answer D ate [...] as of this encounter Functional Status * Alcohol Screening Score Answer Date of Assessment Author 0 04/30/2025 10:00 PM EDT Nayana Ward RN * Drug Screening Score Answer Date of Assessment Author 0 04/30/2025 10:00 PM EDT Nayana Ward RN * Question Answer Date of Assessment Author How often do you have a drin k containing alcohol? 0 04/30/2025 10:00 PM EDT Nora Paez RN How many drinks containing alcohol do you have on a typical day when you are drinking? 0 04/30/2025 10:00 PM THERESET Nora Paez RN How often do you have six or more drinks on one occasion? 0 04/30/2025 10:00 PM EDT Nayana Patiño RN AUDIT-C to Determine Rows 4-10 0 04/30/2025 10:00 PM EDT Nayana Paez RN * Question Answer Date of Assessment Author [...] 4:12 PM EDT Sha Garber RN * Suicide Severity Rating Answer Date of Assessment Author No Risk 06/23/2025 1:16 PM EDT Emiliano Jimenez RN * [place] Suicide Severity Rating Scale (Q shift for moderate and high) Question Answer Date of Assessment Author 1. In the past month, have you wished you were or wished you could go to sleep and not wake up? 0 06/23/2025 1:16 PM EDT Denice Jimenez, MAHENDRA 2. In the past month, have you actually had any thoughts of killing yourself? (If no, skip to question 6) 0 06/23/2025 1:16 PM EDT Denice Jimenez, MAHENDRA 6. Have you ever done anything, started to do anything, or prepared to do anything to end your life? 0 06/23/2025 1:16 PM EDT Bonifacio Jimenez, MAHENDRA documented as of this encounter Plan of Treatment Upcoming Encounters Date Type Department Care Team (Late st Contact Info) Description 08/28/2025 12:00 PM [facility] Hospital Encounter EDG IR [facility] [address] Vargas Wolf MD [address] [facility] [place] [address] Buzz Hernandez CRNA [address] [facility] [address] [place] [address] documented as of this encounter Results * (ABNORMAL) COMPREHENSIVE METABOLIC PANEL (02/12/2025 4:50 AM EDT) Sodium 136 136 - 145 mmol/L 02/12/2025 7:12 AM EDT [facility] Potassium 4.4 3.5 - 5.0 mmol/L 02/12/2025 7:12 AM EDT [facility] Chloride 102 98 - 107 mmol/L 02/12/2025 7:12 AM EDT [facility] Total CO2 24 22 - 29 mmol/L 02/12/2025 7:12 AM EDT [facility] Anion Gap 10 7 - 16 mmol/L 02/12/2025 7:12 AM EDT [facility] Calcium 9.1 8.8 - 10.4 mg/dL 02/12/2025 7:12 AM EDT [facility] Glucose Lvl 101(H) 70 - 99 mg/dL 02/12/2025 7:12 AM EDT [facility] BUN 17 8 - 23 mg/dL 02/12/2025 7:12 AM EDT [facility] Creatinine 1.10 0.51 - 1.30 mg/dL 02/12/2025 7:12 AM EDT [facility] Albumin 3.4 3.2 - 4.6 gm/dL 02/12/2025 7:12 AM EDT [facility] Total Protein 6.2(L) 6.4 - 8.3 gm/dL 02/12/2025 7:12 AM EDT [facility] Bili Total 0.6 0.2 - 1.3 mg/dL 02/12/2025 7:12 AM EDT [facility] ALT 18 <=41 U/L 02/12/2025 7:12 AM EDT [facility] AST 25 <=40 U/L 02/12/2025 7:12 AM EDT [facility] Alk Phos 143(H) 36 - 123 U/L 02/12/2025 7:12 AM EDT [facility] eGFR (CKD-EPIcr 2020) 49(L) >=60 mL/min/1.7 3 m2 02/12/2025 7:12 AM EDT [facility] Comment:Estimated GFR was ca lculated using the CKD-EPIcr (2020) equation refit without race. The equation is recommended by the National Kidney Foundation - [place] [employer] of Nephrology Task Force. Blood VENOUS BLOOD / Unknown Venipuncture / Unknown 02/12/2025 4:50 AM EDT 02/12/2025 6:30 AM EDT us Valentino Ugalde MD CHEMISTRY ORDERABLES Final Resu lt [facility] [address] [facility] , [address] [place] [phone] documented in this encounter Visit Diagnoses Diagnosis Encounter for general adult medical examination without abnormal findings Routine general medical examination at a health care facility documented in this encounter Additional Health Concerns Infection Onset Date Last Indicated Resolved Time ESBL organism Comment:ESBL urine: 05/23, 06/1205/23/2025 06/12/2025 documented as of this encounter Care Teams Public Improvement Inspector Relationship Specialty Start Date End Date No Pcp, Per Patient PCP - General 06/04/24 documented as of this encounter
--- OUTSIDE RECORDS SUMMARY | 2025-02-05 07:00 | XMS_ITS | Encounter Summary ---
Author Organization [place] [address] Care Team Providers Care Department Store Manager Name Role Phone No Pcp, Per Patient Primary Care Provider Evelyne prabhakar Encounter Details Date Type Department Care Team (Latest Contact Info) Description 02/05/2025 8:00 AM EDT Hospital Encounter [facility] Referral Lab 1 [place] [phone] Valentino Ugalde MD [address] [facility] [address] [place] [address] Encounter for general adult medical examination without abnormal findings Social History Tobacco Use Types Packs/Day Years Used Date Smoking Tobacco: Former Cigarettes Q uit: 1991 Passive Smoke Exposure: Past Smokeless Tobacco: Never Alcohol Use Standard Drinks/Week Comments Not Currently 0 (1 standard drink = 0.6 oz pur e alcohol) [facility] Utilities Answer Date Recorded In the past 12 months has [employer] electric, gas, oil, or water company threatened to shut off services in your home? No 06/23/2025 Overall Financial Resource Strain (CARDIA) Answe r Date Recorded How hard is it for you to pa y for the very basics like food, housing, medical care, and heating? Not very hard 06/23/2025 PHQ-2 Answer Date Recorded PHQ-2 Total Score 0 06/23/2025 [facility] [place] of Occupat ional Health - Occupational Stress [...] money to get more. Never true 06/23/2025 [facility] IP Transportation Answer D ate Recorded In [...] 1:16 PM EDT Emiliano Jimenez RN * [place] Suicide Severity Rating Scale (Q shift for [...] st Contact Info) Description 08/28/2025 12:00 PM EST Hospital Encounter EDG IR One [facility] [place] [address] Vargas Wolf MD [address] [facility] [address] Buzz Hernandez CRNA [address] [facility] [address] [place] [address] Scheduled Orders Name Type Priority Associated Diagnoses Orde r Schedule CBC WITH DIFF Lab Routine Encounter for general adult medical examination without abnormal findings ONCE for 1 Occurrences starting 02/05/2025 until 03/12/2025 documented as of this encounter Visit Diagnoses Diagnosis Encounter for general adult medical examination without abnormal findings Routine general medical examination at a health care facility documented in this encounter Additional Health Concerns Infection Onset Date Last Indicated Resolved Time ESBL organism Comment:ESBL urine: 05/23, 06/1205/23/2025 06/12/2025 documented as of this encounter Care Teams Department Store Manager Relationship Specialty Start Date End Date No Pcp, Per Patient PCP - General 06/04/24 documented as of this encounter
--- OUTSIDE RECORDS SUMMARY | 2025-02-05 07:00 | XMS_ITS | Encounter Summary ---
Author Organization [place] [address] Care Team Providers Care Laundry Press Operator Name Role Phone No Pcp, Per Patient Primary Care Provider Evelyne prabhakar Encounter Details Date Type Department Care Team (Latest Contact Info) Description 02/05/2025 8:00 AM EDT Hospital Encounter [facility] Referral Lab 1 [place] [id number] Valentino Ugalde MD [address] [facility] [address] [place] [address] Encounter for general adult medical examination without abnormal findings Social History Tobacco Use Types Packs/Day Years Used Date Smoking Tobacco: Former Cigarettes Q uit: 1991 Passive Smoke Exposure: Past Smokeless Tobacco: Never Alcohol Use Standard Drinks/Week Comments Not Currently 0 (1 standard drink = 0.6 oz pur e alcohol) [facility] Utilities Answer Date Recorded In the past 12 months has [employer] electric, gas, oil, or water company threatened to shut off services in your home? No 06/23/2025 Overall Financial Resource Strain (CARDIA) Answe r Date Recorded How hard is it for you to pa y for the very basics like food, housing, medical care, and heating? Not very hard 06/23/2025 PHQ-2 Answer Date Recorded PHQ-2 Total Score 0 06/23/2025 [facility] [place] of Occupat ional Health - Occupational Stress [...] money to get more. Never true 06/23/2025 [facility] IP Transportation Answer D ate Recorded In [...] 1:16 PM EDT Emiliano Jimenez RN * [place] Suicide Severity Rating Scale (Q shift for [...] st Contact Info) Description 08/28/2025 12:00 PM [facility] Hospital Encounter EDG IR [place] [address] Vargas Wolf MD [address] [place] [address] Buzz Hernandez CRNA [address] [address] documented as of this encounter Results * (ABNORMAL) PREALBUMIN (02/12/2025 4:50 AM EDT) Prealbumin 8.9(L) 20.0 - 40.0 mg/dL 02/12/2025 7:15 AM EDT [facility] Blood VENOUS BLOOD / Unknown Venipuncture / Unknown 02/12/2025 4:50 AM EDT 02/12/2025 6:30 AM EDT us Valentino Ugalde MD CHEMISTRY ORDERABLES Final Resu lt [facility] 1 [facility] , [address] [address] [place] [address] documented in this encounter Visit Diagnoses Diagnosis Encounter for general adult medical examination without abnormal findings Routine general medical examination at a health care facility documented in this encounter Additional Health Concerns Infection Onset Date Last Indicated Resolved Time ESBL organism Comment:ESBL urine: 05/23, 06/1205/23/2025 06/12/2025 documented as of this encounter Care Teams Laundry Press Operator Relationship Specialty Start Date End Date No Pcp, Per Patient PCP - General 06/04/24 documented as of this encounter
--- OUTSIDE RECORDS SUMMARY | 2025-02-05 07:00 | XMS_ITS | Encounter Summary ---
Author Organization [place] [address] Care Team Providers Care Transverse Abdominal Muscle Nurse Name Role Phone No Pcp, Per Patient Primary Care Provider Evelyne prabhakar Encounter Details Date Type Department Care Team (Latest Contact Info) Description 02/05/2025 8:00 AM EDT Hospital Encounter SE Referral Lab 1 [place] [phone] Valentino Ugalde MD [address] [facility] [address] [place] [address] Encounter for general adult medical examination without abnormal findings Social History Tobacco Use Types Packs/Day Years Used Date Smoking Tobacco: Former Cigarettes Q uit: 1991 Passive Smoke Exposure: Past Smokeless Tobacco: Never Alcohol Use Standard Drinks/Week Comments Not Currently 0 (1 standard drink = 0.6 oz pur e alcohol) [facility] Utilities Answer Date Recorded In the past 12 months has [employer] electric, gas, oil, or water company threatened to shut off services in your home? No 06/23/2025 Overall Financial Resource Strain (CARDIA) Answe r Date Recorded How hard is it for you to pa y for the very basics like food, housing, medical care, and heating? Not very hard 06/23/2025 PHQ-2 Answer Date Recorded PHQ-2 Total Score 0 06/23/2025 [facility] [place] of Occupat ional Health - Occupational Stress [...] money to get more. Never true 06/23/2025 [facility] IP Transportation Answer D ate Recorded [...] hopeless 0 04/2025 4:12 PM EDT Chio Graber RN PHQ-2 Total Score 0 06/23/2025 4:12 [...] 1:16 PM EDT Emiliano Jimenez RN * [place] Suicide Severity Rating Scale (Q shift for [...] PM EST Hospital Encounter EDG IR One [facility] [place] [address] Vargas Wolf MD [address] [place] [address] Buzz Hernandez CRNA 340 [facility] [address] [place] [address] Scheduled Orders Name Type Priority [...] documented as of this encounter Care Teams Transverse Abdominal Muscle Nurse Relationship Specialty Start Date End Date No Pcp, Per Patient PCP - General 06/04/24 documented as of this encounter
--- OUTSIDE RECORDS SUMMARY | 2025-02-07 07:42 | XMS_ITS | Encounter Summary ---
Author Organization [place] [address] Care Team Providers Care Nurse Case Manager Name Role Phone No Pcp, Per Patient Primary Care Provider Evelyne prabhakar Encounter Details Date Type Department Care Team (Latest Contact Info) Description 02/07/2025 8:42 AM EDT Hospital Encounter [facility] Referral Lab 1 [place], [place] [id number] Encounter for general adult medical examination without abnormal findings Social History Tobacco Use Types Packs/Day Years Used Date Smoking Tobacco: Former Cigarettes Q uit: 1991 Passive Smoke Exposure: Past Smokeless Tobacco: Never Alcohol Use Standard Drinks/Week Comments Not Currently 0 (1 standard drink = 0.6 oz pur e alcohol) [facility] Utilities Answer Date Recorded In the past 12 months has [employer] electric, gas, oil, or water company threatened to shut off services in your home? No 06/23/2025 Overall Financial Resource Strain (CARDIA) Answe r Date Recorded How hard is it for you to pa y for the very basics like food, housing, medical care, and heating? Not very hard 06/23/2025 PHQ-2 Answer Date Recorded PHQ-2 Total Score 0 06/23/2025 [facility] of Occupat ional Health - Occupational Stress [...] money to get more. Never true 06/23/2025 [facility] IP Transportation Answer D ate [...] Determine Rows 4-10 0 04/30/2025 10:00 PM THERESET Nayana Paez RN * Question Answer Date [...] 1:16 PM EDT Emiliano Jimenez RN * [place] Suicide Severity Rating Scale (Q shift for [...] st Contact Info) Description 08/28/2025 12:00 PM [facility] Hospital Encounter EDG IR One [facility] [place] [address] Vargas Wolf MD [address] [place] [address] Buzz Hernandez CRNA [address] [facility] [address] [place] [address] Scheduled Orders Name Type Priority [...] documented as of this encounter Care Teams Nurse Case Manager Relationship Specialty Start Date End Date No Pcp, Per Patient PCP - General 06/04/24 documented as of this encounter
--- OUTSIDE RECORDS SUMMARY | 2025-08-05 14:45 | XMS_ITS | Encounter Summary ---
Author Organization [place] [address] Care Team Providers Care Financial Investment Adviser Name Role Phone No Pcp, Per Patient Primary Care Provider Evelyne prabhakar Reason for Visit * Reason Comments Peripheral Arterial Disease (PAD) Encounter Details Date Type Department Care Team (Late st Contact Info) Description 08/05/2025 3:45 PM EDT Office Visit [facility] [address] [facility] [address] [place] [address] Vargas Wolf MD [address] [place] [address] [phone] PAD (peripheral artery disease) (Primary Dx); Critical limb ischemia of left lower extremity (HCC) Social History Tobacco Use Types Packs/Day Years Used Date Smoking Tobacco: Former Cigarettes Q uit: 1991 Passive Smoke Exposure: Past Smokeless Tobacco: Never Alcohol Use Standard Drinks/Week Comments Not Currently 0 (1 standard drink = 0.6 oz pur e alcohol) [facility] Utilities Answer Date Recorded In [...] Date Recorded PHQ-2 Total Score 0 06/23/2025 [place] - Occupational Stress [...] money to get more. Never true 06/23/2025 [facility] IP Transportation Answer [...] Sign Reading Time Taken Comments Blood Pressure 110/70 08/05/2025 3:59 PM EDT Pulse 126 08/05/2025 3:57 PM EDT Temperature - - Respiratory Rate - - Oxygen Saturation - - Inhaled Oxygen Concentration - - Weight - - Height - - Body Mass Index - - documented in this encounter Progress Notes * Vargas Wolf MD - 08/05/2025 3:45 PM EDT Subjective: Ms. Montoya is here for a scheduled routine follow-up visit History of Present Illness The patient is a 84 y.o. female: Peripheral Arterial Disease Complains of pain in R toes. When I ask if she is having pain in her R foot, cannot give a clear answer. She does state that her toe pain improves when sitting on edge of bed but also it is exacerbated by bearing weight on it. Per family, she received gabapentin and oxycodone at rehab prior to transportation to clinic. Denies open wounds. Reports history of previous vascular procedures on legs. Unclear is she is still on ASA and statin as not on med rec anymore and patient unable to answer. Previous smoker 1991. Vascular Surgical History: 05/24/2025- Left AKA 01/30/2025- Lt LE Angiogram with MAIL CLERK of peroneal and tibioperoneal trunk with 1.5 x 80 mm and 2 x 200 balloons. MAIL CLERK of the popliteal artery with 3.5 x 120 mm and 4 x 80 mm balloons. (Vargas Wolf MD) HPI Patients past medical, family and social histories were reviewed and updated. There are no changes except as noted. Past Medical History[1] Patient Active Problem List Diagnosis Date Noted Phantom pain after amputation of lower extremity ([facility]) 06/27/2025 Seizure ([facility]) 06/24/2025 Respiratory arrest ([facility]) 06/24/2025 Atrial fibrillation with slow ventricular response ([facility]) 06/24/2025 Atrial fibrillation with RVR ([facility]) 06/23/2025 Acute cystitis without hematuria 05/28/2025 Metabolic encephalopathy 05/27/2025 Acute respiratory failure with hypoxemia ([facility]) 05/26/2025 Acute pulmonary edema ([facility]) 05/26/2025 Hypotension 05/26/2025 Pancytopenia ([facility]) 05/21/2025 Palliative care by specialist 05/13/2025 Goals of care, counseling/discussion 05/13/2025 Wound dehiscence 05/01/2025 Status post amputation of left foot through metatarsal bone ([facility]) 03/23/2025 Complication of foot amputation stump ([facility]) 03/23/2025 Diabetic foot infection ([facility]) 03/23/2025 S/P transmetatarsal amputation of foot, left ([facility]) 03/23/2025 Gangrene ([facility]) 03/09/2025 Left foot pain 03/07/2025 Gangrene due to arterial insufficiency ([facility]) 03/07/2025 Critical limb ischemia of left lower extremity ([facility]) 01/30/2025 PVD (peripheral vascular disease) 01/29/2025 Chest pain 01/29/2025 Osteomyelitis of great toe ([facility]) 01/23/2025 Abscess of toe of left foot 01/20/2025 Cellulitis and abscess of toe of left foot 01/19/2025 Exostosis of toe 01/19/2025 Atherosclerosis of tolowa dee-ni' artery of extremity 01/19/2025 Constipation 01/15/2025 Stage 3a chronic kidney disease (HCC) 01/12/2025 Hyponatremia 01/12/2025 Anemia in other chronic diseases classified elsewhere 01/12/2025 Great toe pain, left 01/11/2025 Left leg pain 01/11/2025 PAD (peripheral artery disease) 01/11/2025 Elevated troponin 01/11/2025 Shortness of breath 01/11/2025 Preoperative cardiovascular examination 01/11/2025 Chest pain, unspecified type // Elevated troponin 01/10/2025 Acute on chronic heart failure with preserved ejection fraction (HCC) 06/04/2024 Hx of CABG 06/04/2024 Hx of subarachnoid hemorrhage // history of traumatic brain injury - hemorrhagic cerebral [id number]/2024 Hx of subdural hemorrhage 06/04/2024 Macrocytosis 06/04/2024 Debility 06/04/2024 Hyperkalemia 06/04/2024 Gastroesophageal reflux disease without esophagitis 06/04/2024 Mood disorder 06/04/2024 Closed nondisplaced intertrochanteric fracture of right femur with routine healing 03/20/2024 History of pulmonary embolus (PE) 03/14/2024 Cervical spondylosis without myelopathy 03/14/2024 Irritable bowel syndrome 03/14/2024 DANTE (obstructive sleep apnea) 03/14/2024 Steatosis of liver 03/14/2024 Temporal arteritis (HCC) 03/14/2024 Fall 01/22/2024 Diverticulosis 01/22/2024 Emphysema lung (HCC) 01/22/2024 Degenerative arthritis 01/22/2024 Splenic lesion 01/22/2024 Thrombocytopenia 01/22/2024 Focal hemorrhagic contusion of cerebrum (HCC) 01/21/2024 Primary open angle glaucoma (POAG) of both eyes, severe stage 11/26/2023 Paroxysmal atrial fibrillation (HCC) 04/28/2023 Carotid stenosis, symptomatic w/o infarct, bilateral 04/28/2023 Coronary arteriosclerosis in tolowa dee-ni' artery // Hx of CABG 04/09/2016 Secondary open-angle glaucoma of right eye, severe stage 12/09/2015 Type 2 diabetes mellitus, without long-term current use of insulin ([facility]) 12/09/2015 Mixed hyperlipidemia 09/30/2014 Hypertension associated with diabetes (HCC) 09/30/2014 Cervical disc disease 09/30/2014 Peripheral neuropathy 09/30/2014 Surgical History[2] Family History[3] Social History Tobacco Use Smoking status: Former Current packs/day: 0.00 Types: Cigarettes Quit date: 1991 Years since quittin.8 Passive exposure: Past Smokeless tobacco: Never Substance Use Topics Alcohol use: Not Currently Current Outpatient Medications Medication Instructions acetaminophen (TYLENOL) 1,000 mg, *EVERY 6 HOURS atorvastatin (LIPITOR) 40 mg, NIGHTLY Calcium Carbonate (ANTACID ULTRA STRENGTH) 1,000 mg, DAILY cyanocobalamin 1,000 mcg, DAILY dorzolamide-timoloL (COSOPT) 22.3-6.8 mg/mL Opht Drops 1 Drop, NIGHTLY fUROsemide (LASIX) 40 mg, Oral, DAILY latanoprost (XALATAN) 0.005 % Opht Drops 1 Drop, Ophthalmic, NIGHTLY lidocaine (ASPERCREME) 4 % Top Adhesive Patch, Medicated 1 Patch, Transdermal, DAILY losartan (COZAAR) 25 mg, Oral, DAILY nalOXone (NARCAN) 4 mg, Nasal, PRN, [place] the contents of one device (0.1mL) into one nostril upon signs of opioid overdose. Call 911. May repeat dose in other nostril if no response within 2-3 minutes. nortriptyline (PAMELOR) 10 mg, Oral, NIGHTLY pantoprazole (PROTONIX) 40 mg, Oral, 2 TIMES DAILY polyethylene glycol (GLYCOLAX, MIRALAX) 17 g, DAILY ranolazine (RANEXA) 1,000 mg, DAILY Allergies[4] Review of Systems Constitutional: Positive for appetite change. Negative for chills, fatigue and fever. Respiratory: Negative for chest tightness and shortness of breath. Cardiovascular: Positive for leg swelling. Negative for chest pain and palpitations. Musculoskeletal: Negative for arthralgias and back pain. Skin: Positive for color change. Negative for wound. Neurological: Positive for numbness. Negative for weakness. Objective: Vitals: 08/05/25 1557 08/05/25 1559 BP: 130/80 110/70 BP Location: Right arm Left arm Pulse: 126 There is no height or weight on file to calculate BMI. Physical Exam Constitutional: General: She is not in acute distress. HENT: Head: Normocephalic and atraumatic. Mouth/Throat: Pharynx: Oropharynx is clear. Eyes: General: No scleral icterus. Cardiovascular: Rate and Rhythm: Normal rate. Pulses: Dorsalis pedis pulses are 0 on the right side. Posterior tibial pulses are 0 on the right side. Comments: well healed left AKA incision. Pulmonary: Effort: No respiratory distress. Neurological: General: No focal deficit present. Mental Status: She is oriented to person, place, and time. Assessment and Plan: Miladis was seen today for follow-up. Diagnoses and all orders for this visit: PAD (peripheral artery disease) Critical limb ischemia of left lower extremity (HCC) presents today in follow up for PAD. L AKA well healed. C/o pain in R toes. She is altered though and cannot answer questions for me to state she is or is not having R foot rest pain at this time. No wounds on R foot but does have dependent rubor. R FERNIE is .5. Discussed with family whois present and I will plan to see her again soon to determine if she should undergo a RLE angiogramat this time. Also will need to address whether patient is on antiplatelets still after recent hospitalization. I explained the criteria for more intervention on the right leg. All questions answered Note written by Edgar Spaulding MA acting as scribe for Vargas Wolf MD I have reviewed this note and it accurately reflects my work and decisions made during this visit. Signed: Vargas Wolf MD [1] Past Medical History: Diagnosis Date A-fib (HCC) [...] but is not using. Stroke ([facility]) pt's states around 3 years ago. Urinary incontinence Urinary tract infection [2] Past Surgical History: Procedure Laterality Date ABDOMEN [...] IR REVAS FEM POP ART UNILAT W MAIL CLERK 01/30/2025 IR REVAS FEM POP ART UNILAT W MAIL CLERK 01/30/2025 Vargas Wolf MD [facility] IR IR [...] DPM; Location: [facility] MAIN OR; Service: Podiatry [3] No family history on file. [4] Allergies Allergen Reactions Lidocaine Rash Nitrofurantoin Rash Morphine Other (See Comments) documented in this encounter Miscellaneous Notes * Patient Instructions - Edgar Spaulding MA - 08/05/2025 3:45 PM EDT If she develops worsening pain with walking or non-healing wounds on her legs or feet prior to her next appointment, she was instructed to call the office. documented in this encounter Plan of Treatment Upcoming Encounters Date Type Department Care Team (Late st Contact Info) Description 08/28/2025 12:00 PM [facility] Hospital Encounter [facility] [place] [address] Vargas Wolf MD [address] [place] [address] [place] [address] Buzz Hernandez CRNA [address] [facility] [address] [place] [address] documented as of this encounter Visit Diagnoses Diagnosis PAD (peripheral artery disease)- Primary Unspecified disorders of arteries and arterioles Critical limb ischemia of left lower extremity (HCC) documented in this encounter Additional Health Concerns Infection Onset Date Last Indicated Resolved Time ESBL organism Comment:ESBL urine: 05/23, 06/1205/23/2025 06/12/2025 Assessment Noted Time A fall risk assessment has been complete d for the patient 02/08/2025 11:32 AM EDT documented as of this encounter Care Teams Financial Investment Adviser Relationship Specialty Start Date End Date No Pcp, Per Patient PCP - General 06/04/24 documented as of this encounter
--- OUTSIDE RECORDS SUMMARY | 2025-08-19 14:00 | XMS_ITS | Encounter Summary ---
Author Organization [facility] [address] Care Team Providers Care Airframe Technical Officer Name Role Phone No Pcp, Per Patient Primary Care Provider Evelyne prabhakar Reason for Visit * Reason Comments Peripheral Arterial Disease (PAD) Encounter Details Date Type Department Care Team (Late st Contact Info) Description 08/19/2025 2:00 PM EST Office Visit [facility] V[facility] Surg Edg [address] [facility] [address] [place] [address] Vargas Wolf MD [address], [place] [id number] PAD (peripheral artery disease) (Primary Dx) Social History Tobacco Use Types Packs/Day Years Used Date Smoking Tobacco: Former Cigarettes Q uit: 1991 Passive Smoke Exposure: Past Smokeless Tobacco: Never Alcohol Use Standard Drinks/Week Comments Not Currently 0 (1 standard drink = 0.6 oz pur e alcohol) [facility] Utilities Answer Date Recorded In the past 12 months has [employer] electric, gas, oil, or water company threatened to shut off services in your home? No 06/23/2025 Overall Financial Resource Strain (CARDIA) Answe r Date Recorded How hard is it for you to pa y for the very basics like food, housing, medical care, and heating? Not very hard 06/23/2025 PHQ-2 Answer Date Recorded PHQ-2 Total Score 0 06/23/2025 [facility] [place] of Occupat ional Health - Occupational Stress [...] Never true 06/23/2025 [facility] IP Transportation Answer D ate Recorded [...] Sign Reading Time Taken Comments Blood Pressure 110/80 08/19/2025 1:50 PM EST Pulse 82 08/19/2025 1:48 PM EST Temperature - - Respiratory Rate - - Oxygen Saturation - - Inhaled Oxygen Concentration - - Weight 49 kg (108 lb) 08/19/2025 1:48 PM EST Height - - Body Mass Index 19.75 06/12/2025 8:24 PM EDT documented in this encounter Progress Notes * Vargas Wolf MD - 08/19/2025 2:00 PM EST Subjective: Ms. Montoya is here for a scheduled routine follow-up visit History of Present Illness The patient is a 84 y.o. female: Peripheral Arterial Disease Complains of RLE rest pain. Pain is primarily located in the right foot, more in her toes. Denies open wounds. Reports history of previous vascular procedures on legs. Takes ASA and statin daily. Previous smoker 1991. Vascular Surgical History: 05/24/2025- Left AKA 01/30/2025- Lt LE Angiogram with EMPLOYEE PLACEMENT SPECIALIST of peroneal and tibioperoneal trunk with 1.5 x 80 mm and 2 x 200 balloons. EMPLOYEE PLACEMENT SPECIALIST of the popliteal artery with 3.5 x 120 mm and 4 x 80 mm balloons. (Vargas Wolf MD) HPI Patients past medical, family and social histories were reviewed and updated. There are no changes except as noted. Past Medical History[1] Patient Active Problem List Diagnosis Date Noted Phantom pain after amputation of lower extremity ([facility]) 06/27/2025 Seizure ([facility]) 06/24/2025 Respiratory arrest ([facility]) 06/24/2025 Atrial fibrillation with slow ventricular response ([facility]) 06/24/2025 Atrial fibrillation with RVR ([facility]) 06/23/2025 Acute cystitis without hematuria 05/28/2025 Metabolic encephalopathy 05/27/2025 Acute respiratory failure with hypoxemia ([facility]) 05/26/2025 Acute pulmonary edema ([facility]) 05/26/2025 Hypotension 05/26/2025 Pancytopenia ([facility]) 05/21/2025 Palliative care by specialist 05/13/2025 Goals of care, counseling/discussion 05/13/2025 Wound dehiscence 05/01/2025 Status post amputation of left foot through metatarsal bone ([facility]) 03/23/2025 Complication of foot amputation stump ([facility]) 03/23/2025 Diabetic foot infection ([facility]) 03/23/2025 S/P transmetatarsal amputation of foot, left ([facility]) 03/23/2025 Gangrene ([facility]) 03/09/2025 Left foot pain 03/07/2025 Gangrene due to arterial insufficiency ([facility]) 03/07/2025 Critical limb ischemia of left lower extremity ([facility]) 01/30/2025 PVD (peripheral vascular disease) 01/29/2025 Chest pain 01/29/2025 Osteomyelitis of great toe ([facility]) 01/23/2025 Abscess of toe of left foot 01/20/2025 Cellulitis and abscess of toe of left foot 01/19/2025 Exostosis of toe 01/19/2025 Atherosclerosis of [place]re[place]ski artery of extremity 01/19/2025 Constipation 01/15/2025 Stage [...] of traumatic brain injury - hemorrhagic cerebral [id number]/2024 Hx of subdural hemorrhage 06/04/2024 Macrocytosis 06/04/2024 [...] 03/14/2024 Fall 01/22/2024 Diverticulosis 01/22/2024 Emphysema lung ([facility]) 01/22/2024 Degenerative arthritis 01/22/2024 Splenic lesion 01/22/2024 Thrombocytopenia 01/22/2024 Focal hemorrhagic contusion of cerebrum ([facility]) 01/21/2024 Primary open angle glaucoma (POAG) of both eyes, severe stage 11/26/2023 Paroxysmal atrial fibrillation (HCC) 04/28/2023 Carotid stenosis, symptomatic w/o infarct, bilateral 04/28/2023 Coronary arteriosclerosis in andreafski artery // Hx of CABG 04/09/2016 Secondary open-angle glaucoma of right eye, severe stage 12/09/2015 Type 2 diabetes mellitus, without long-term current use of insulin ([facility]) 12/09/2015 Mixed hyperlipidemia 09/30/2014 Hypertension associated with diabetes ([facility]) 09/30/2014 Cervical disc disease 09/30/2014 Peripheral neuropathy 09/30/2014 Surgical History[2] Family History[3] Social History Tobacco Use Smoking status: Former Current packs/day: 0.00 Types: Cigarettes Quit date: 1991 Years since quittin.8 Passive exposure: Past Smokeless tobacco: Never Substance Use Topics Alcohol use: Not Currently Current Outpatient Medications Medication Instructions acetaminophen (TYLENOL) 1,000 mg, *EVERY 6 HOURS aspirin 81 mg atorvastatin (LIPITOR) 40 mg, NIGHTLY Calcium Carbonate (ANTACID ULTRA STRENGTH) 1,000 mg, DAILY citalopram (CELEXA) 20 mg cyanocobalamin 1,000 mcg, DAILY dorzolamide-timoloL (COSOPT) 22.3-6.8 mg/mL Opht Drops 1 Drop, NIGHTLY latanoprost (XALATAN) 0.005 % Opht Drops 1 Drop, Ophthalmic, NIGHTLY lidocaine (ASPERCREME) 4 % Top Adhesive Patch, Medicated 1 Patch, Transdermal, DAILY losartan (COZAAR) 25 mg, Oral, DAILY nalOXone (NARCAN) 4 mg, Nasal, PRN, [place] the contents of one device (0.1mL) into one nostril upon signs of opioid overdose. Call 911. May repeat dose in other nostril if no response within 2-3 minutes. nortriptyline (PAMELOR) 10 mg, Oral, NIGHTLY pantoprazole (PROTONIX) 40 mg, Oral, 2 TIMES DAILY polyethylene glycol (GLYCOLAX, MIRALAX) 17 g, DAILY ranolazine (RANEXA) 1,000 mg, DAILY Allergies[4] Review of Systems Constitutional: Negative for appetite change, chills, fatigue and fever. Respiratory: Negative for chest tightness and shortness of breath. Cardiovascular: Positive for leg swelling. Negative for chest pain. Musculoskeletal: Negative for gait problem. Skin: Positive for color change. Negative for wound. All other systems reviewed and are negative. Objective: Vitals: 08/19/25 1348 08/19/25 1350 BP: 120/80 110/80 BP Location: Left arm Right arm Pulse: 82 Weight: 108 lb (49 kg) Body mass index is 19.75 kg/m??. Physical Exam Constitutional: General: She is not in acute distress. HENT: Head: Normocephalic and atraumatic. Mouth/Throat: Pharynx: Oropharynx is clear. Eyes: General: No scleral icterus. Cardiovascular: Rate and Rhythm: Normal rate. Pulses: Femoral pulses are 2+ on the right side and 2+ on the left side. Pulmonary: Effort: No respiratory distress. Musculoskeletal: Comments: L AKA Neurological: General: No focal deficit present. Mental Status: She is oriented to person, place, and time. Imaging: Peripheral Arterial Disease Imaging [place] LOWER EXTREMITY ARTERIAL DUPLEX COMPLETE [...] and unreliable secondary to calcified arterial andino. Assessment and Plan: Miladis was seen today for follow-up. Diagnoses and all orders for this visit: PAD (peripheral artery disease) presents today in follow up for PAD. She is s/p L AKA. C/o RLE rest pain. R FERNIE of .5.Rec RLE angiogram with possible intervention via L MANUFACTURING DIRECTOR access. Patient did not tolerate previous angiogram so will plan with anesthesia. Discussed risks (including but not limited to contrast induced nephropathy, access related complications, bleeding, thrombosis and embolization), benefits and alternatives were discussed with the patient. All questions were answered and informed consent was obtained. Regarding L AKA, ok for lymphedema therapist and prosthetic fitting. All questions answered Will call with angiogram details Note written by Edgar Spaulding MA acting [...] IR REVAS FEM POP ART UNILAT W EMPLOYEE PLACEMENT SPECIALIST 01/30/2025 IR REVAS FEM POP ART UNILAT W EMPLOYEE PLACEMENT SPECIALIST 01/30/2025 Vargas Wolf MD [facility] [...] Location: [facility] MAIN OR; Service: Podiatry [3] History reviewed. No pertinent family history. [4] Allergies Allergen Reactions Lidocaine Rash Nitrofurantoin Rash Morphine Other (See Comments) documented in this encounter Plan of Treatment Upcoming Encounters Date Type Department Care Team (Late st Contact Info) Description 08/28/2025 12:00 PM EST Hospital Encounter [facility] [address] [facility] [place] [address] Vargas Wolf MD [address] [place] [address] Buzz Hernandez CRNA [address] [facility] [address] [place] [address] documented as of this encounter Visit Diagnoses Diagnosis PAD (peripheral artery disease)- Primary Unspecified disorders of arteries and arterioles documented in this encounter Historical Medications * This list may reflect changes made after this encounter. Medication Sig Dispense Quantity Refills Last Filled Start D ate End Date citalopram (CELEXA) 20 mg Oral Tablet 20 mg. 05/19/2024 aspirin 81 mg Oral Tablet, Delayed Release (E.C.) 81 mg. 05/19/2024 added in this encounter Additional Health Concerns Infection Onset Date Last Indicated Resolved Time ESBL organism Comment:ESBL urine: 05/23, 06/1205/23/2025 06/12/2025 Assessment Noted Time A fall risk assessment has been complete d for the patient 02/08/2025 11:32 AM EDT documented as of this encounter Care Teams Airframe Technical Officer Relationship Specialty Start Date End Date No Pcp, Per Patient PCP - General 06/04/24 documented as of this encounter
[2025-08-28 08:22] LABS: Microscopic, Urine URINE MICROSCOPIC (MICROSCOPIC)
--- OUTSIDE RECORDS SUMMARY | 2025-08-28 08:22 | XMS_ITS | Clinical Summary ---
Author Organization [facility] Address [address] [place] [address] Phone Care Team Providers Care Purification Operator Helper Name Role Phone Smita ESCOBEDO, Jorje Arceo [phone] [ ] Conditions or Problems Problem Name Problem Code Onset Date Status Entry Date Provider Comment Standard Description Annotate Contusion of left lower leg, subsequent encounter(s) S80.12xD (ICD-10-CM) Active Arlen Feng Contusion of left lower leg, subsequent encounter Cellulitis of LLE L03.116 (ICD-10-CM) Active Arlen Feng Cellulitis of left lower limb DM II with diabetic PVD 610748833 (SNOMED CT) Active Arlen Feng Peripheral vascular disease Benign Essential Hypertension 1043740 (SNOMED CT) Active Arlen Feng Benign essential hypertension Medications Medication Instructions Start Date Stop Date Generic Name [facility] Provider VALSARTAN 160 MG TABS 1 tablet po daily VALSARTAN 80553998581 Leti Dela Cruz ALPRAZOLAM 0.5 MG TABS Take one by mouth daily/PRN ALPRAZOLAM 92243761013 Lexi Nascimentodox VIBRAMYCIN 100 MG ORAL CAPSULE Take by mouth twice a day DOXYCYCLINE HYCLATE 95757644514 Lexi Gipson TERBINAFINE HCL 250 MG TABS Take one by mouth daily TERBINAFINE HCL 49966714555 Lexi Gipson RANEXA 1000 MG ORAL TABLET EXTENDED RELEASE 12 HOUR Take by mouth twice a day RANOLAZINE 02736163818 Lexi Gipson CLOPIDOGREL BISULFATE 75 MG TABS Take one by mouth daily CLOPIDOGREL BISULFATE 18674313147 Lexi Nascimentodox OMEPRAZOLE 40 MG CPDR Take one by mouth daily OMEPRAZOLE 67795364143 Lexi Nascimentodox NORVASC 10 MG TABS Take one by mouth daily AMLODIPINE BESYLATE 06076185017 Lexi Nascimentodox HYDROCODONE-ACET AMINOPHEN 7.5-325 MG TABS Q6H/PRN HYDROCODONE-ACET AMINOPHEN 78711711860 Lexi Nascimentodox DAILY MULTIVITAMIN CAPS Take one by mouth daily MULTIPLE VITAMINS-MINERAL S 00790555734 Lexi Nascimentodox METFORMIN HCL 500 MG TABS Take by mouth twice a day METFORMIN HCL 74529005707 Lexi Thorpex LOVENOX 60 MG/0.6ML SUBCUTANEOUS SOLUTION 70 mg, SubCutaneous, Q12H ENOXAPARIN SODIUM 30403911550 Lexi Nascimentodox LOSARTAN POTASSIUM 100 MG TABS Take one by mouth daily LOSARTAN POTASSIUM 08005409587 Lexi Nascimentodox ACIDOPHILUS LACTOBACILLUS CAPS Take two by mouth daily LACTOBACILLUS 96486010996 Lexi Gipson HYDRALAZINE HCL 50 MG TABS 2 Tab, Oral, BID HYDRALAZINE HCL 80805201985 Lexi Thorpex DORZOLAMIDE HCL 2 % SOLN 1 Drop, Eye Right, BID DORZOLAMIDE HCL 15360105536 Lexi Nascimentodox WARFARIN SODIUM 3 MG TABS Take one by mouth daily WARFARIN SODIUM 69597300069 Lexi Nascimentodox CARVEDILOL 6.25 MG TABS Take one by mouth 3 times daily, morning, afternoon and evening. CARVEDILOL 72016298137 Lexi Nascimentodox ATORVASTATIN CALCIUM 80 MG TABS Take one by mouth daily ATORVASTATIN CALCIUM 92613733926 Lexi Gipson AMOXICILLIN-POT CLAVULANATE 875-125 MG TABS Take by mouth twice a day AMOXICILLIN-POT CLAVULANATE 35297671326 Lexi Gipson Medications Administered No information available. [...]
--- OUTSIDE RECORDS SUMMARY | 2025-08-28 08:23 | XMS_ITS | Clinical Summary ---
Author Organization [facility] Address [address] [place] [address], [address] [place] [address] Care Team Providers Care Power Systems Engineer Name Role Phone Jay Howell MD Primary Care Provider [phone] Allergies Active Allergy Reactions Criticality Noted Date [...] patient's age to complete [place] [address] MEDICARE Care Teams Power Systems Engineer Relationship Specialty Start Date End Date Jay Howell MD Clinic [place] [address] PCP - General Emergency Medicine 03/06/25
--- OUTSIDE RECORDS SUMMARY | 2025-08-28 08:25 | XMS_ITS | Clinical Summary ---
Author Organization [facility] [place] [address] Care Team Providers Care Civil Engineering Specialist Name Role Phone Jay Howell MD Primary Care Provider [phone] Allergies Active Allergy Reactions Criticality Noted Date [...] contusion - Repeat CTH 0500 pending - [facility] elevated - Na goal 140-145 [...] repeat falls Continue outpatient follow-up with established operations technician; consider closer follow up with continued weakness/repeat falls. 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 She has denied any chest pain. Her last heart catheterization was November 25, 2022 at [facility] in [place] showing: -last C 11/25/2022- A. CAD s/p [...] of chest/PE protocol. Patient was sent to [facility] radiology department for CT scan today. [...] Type Department Care Team Description 07/16/2025 Telephone [facility] Urology [address] [place] [address] Kimmie Cabrera 07/09/2025 Telephone [facility] Urology [address] [place] [address] Kimmie Cabrera 07/02/2025 Telephone [facility] Urolog [address], [facility] [place] [address] Returned Call from Last 3 Months Immunizations Immunization Administration [...] slept in a [facility] (including now)? No 08/06/2024 CAGE ASSESSMENT Answer [...] drink first t kathleen in the morning (EYE-PAPER BUNDLER) to steady your nerves or to get [...] Last Done Comments [facility]-Bone Density Scan 1940 [facility]-Medicare Annual Wellness (AWV) 1939 [facility]-Infant/Child/Adol SDOH Screenings 1940 Diabetes: Dental Exam 12/23/1949 [facility]- SDOH Screenings 12/23/1957 [facility]-Adult SDOH Screenings 12/23/1957 [facility]-Hepatitis A Vaccines (1 of 2 - Risk 2-dose series) 12/23/1958 [facility]-Zoster Vaccines (1 of 2) 12/23/1958 [facility]-RSV Vaccine: 60+ Years or (1 - 1-dose 75+ series) 12/23/2014 [facility]-Diabetes: Hemoglobin A1C 09/17/2024 03/20/2024, 01/20/2024 [facility]-Depression Screening 04/03/2025 04/03/2024 [facility]-[id number]-66 Vaccine ( season) 2025 12/09/2021, 02/17/2021, 01/27/2021 [...] this topic Medical Devices Implanted Type Area Cooling Tower Operator Device Identifier Shelf Expiration Date Model / Serial / Lot Nail 10s Intertan 10mm X 36cm 130d Left - [id number] Implanted:Qty: 1 on 03/20/2024 by Haroldo Braden MD at [facility] Nail Left: Femur [id number] 08/04/2033 [id number] / / [id number] Nail Tibial [id number] - [id number] Implanted:Qty: 1 on 08/06/2024 by Haroldo Braden MD at [facility] Nail Right: Tibia [employer] ([employer])-[id number] 09/15/2033 [id number] / / [id number] Lag/Comp Screw Kit 90/85 - [id number] Implanted:Qty: 1 on 03/20/2024 by Haroldo Braden MD at [facility] Screw Left: Femur [id number] 09/26/2033 [id number] / / [id number] Screw Trigen 5.0mm For Metanail 37.5mm - [id number] Implanted:Qty: 1 on 03/20/2024 by Haroldo Braden MD at [facility] Screw Left: Femur [id number] 08/19/2033 [id number] / / [id number] Screw Locking Adv T2 T2 D5xl60 - [id number] Implanted:Qty: 1 on 08/06/2024 by Haroldo Braden MD at [facility] Screw Right: Tibia [employer] ([facility][id number] 05/16/2034 [id number] / / [id number] Screw Locking Adv T2 T2 D5xl50 - [id number] Implanted:Qty: 1 on 08/06/2024 by Haroldo Braden MD at [facility] Screw Right: Tibia [employer] ([facility][id number] 01/14/2034 [id number] / / [id number] Screw Locking T2 D5xl42.5 - [id number] Implanted:Qty: 1 on 08/06/2024 by Haroldo Braden MD at [facility] Screw Right: Tibia [employer] ([facility][id number] 05/16/2034 [id number] / / [id number] Screw Locking T2 D5x35 - [id number] Implanted:Qty: 1 on 08/06/2024 by Haroldo Braden MD at [facility] Screw Right: Tibia [employer] ([facility])-[id number] 05/16/2034 [id number] / / [id number] Procedures Procedure Name Priority Date/Time Associated Diagnosis Comments HEMOGLOBIN A1C STAT Add-on 03/20/2024 12:53 AM EDT from Last 3 Months or Most Recently Relevant to Health Maintenance Results * Hemoglobin A1c (03/20/2024 12:53 AM EDT) Hemoglobin A1c 4.8 <5.7 % 03/20/2024 4:31 AM EDT [facility] Blood Venous blood specimen / Unknown [...] Adults <6.0% Children and Adolescents <7.5% Source: [place] [employer]. Standards of medical care in diabetes,2017. Diabetes Care.2017:40 (suppl 1):S1-S135. HbA1c assay performed by an ion-exchange chromatography method that is certified traceable to the DCCT. us Gerhard Zazueta MD LAB BLOOD ORDERABLES Final Resu lt [facility] [address] [place] [address] from Last 3 Months or Most Recently Relevant to Health Maintenance Insurance MEDICARE Advance Directives Documents on File Type Date Recorded Patient Pediatric Oncologist Expl anation Advance Directives and Livin g [...] Patient has decision-making capacity? Yes Care Teams Civil Engineering Specialist Relationship Specialty Start Date End Date Jay Howell MD [address] [place] [address] PCP - General 03/08/21
--- OUTSIDE RECORDS SUMMARY | 2025-08-28 08:28 | XMS_ITS | Encounter Summary ---
Author Organization [facility] Address [address] [place] [id number] Care Team Providers Care Heater Planer Operator Name Role Phone Jay Howell MD Primary Care Provider [phone] Encounter Details Date Type Department Care Team (Late st Contact Info) Description 07/16/2025 Telephone [facility] [address], [address] [place] [address] [place] [address] Social History Tobacco Use Types Packs/Day Years [...] in a senior care (including now)? No 08/06/2024 CAGE ASSESSMENT Answer [...] drink first t kathleen in the morning (EYE-CHAIN BUILDER LOOM CONTROL) to steady your nerves or to get [...] documented as of this encounter Care Teams Heater Planer Operator Relationship Specialty Start Date End Date Jay Howell MD [address] [place], [place] [address] PCP - General 03/08/21 documented as of this encounter
--- OUTSIDE RECORDS SUMMARY | 2025-08-28 08:28 | XMS_ITS | Encounter Summary ---
Author Organization [facility] Address [address] [place] [address] Care Team Providers Care Party Plan Sales Director Name Role Phone Jay Howell MD Primary Care Provider [phone] Reason for Visit * Reason Onset Date Comments DR. DUMAS - SCHEDULING REQUEST 07/02/2025 Encounter Details Date Type Department Care Team (Late st Contact Info) Description 07/02/[address] [facility] CARDIOLOGY [address] [place] [address] Judie Dumas MD [address] [place] [address] DR. 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 PATIENT WOULD LIKE TO BE SEEN PAULETTE AND CAN SEND ANY RELEVANT RECORDS FROM CARE WHILE SHE WAS AWAY. documented in this encounter Plan of Treatment Not on file documented as of this encounter Visit Diagnoses Not on filedocumented in this encounter Care Teams Party Plan Sales Director Relationship Specialty Start Date End Date Jay Howell MD [address] [place] [address] PCP - General Emergency Medicine 04/28/23 documented as of this encounter
--- OUTSIDE RECORDS SUMMARY | 2025-08-28 08:28 | XMS_ITS | Encounter Summary ---
Author Organization [facility] Address [address] [place] [address] Care Team Providers Care Test Engine Evaluator Name Role Phone Jay Howell MD Primary Care Provider Encounter Details Date Type Department Care Team (Late st Contact Info) Description 01/20/2024 Ophth Exam [facility] [address] [place] [address] Joselito Garza MD [address] [place] [address] Social History Tobacco Use Types [...] place to sleep or slept in a jail (including now)? No 01/23/2024 CAGE ASSESSMENT Answer [...] drink first t kathleen in the morning (EYE-GLASS DRILLER) to steady your nerves or to get rid of a hangover? 0 01/21/2024 CAGE Questionnaire Score 0 024 Utilities Answer Date Recorded In the past 12 months has th e [employer], gas, oil, or water company threatened to [...] as of this encounter Care Teams Test Engine Evaluator Relationship Specialty Start Date End Date Jay Howell MD [address] [place] [address] PCP - General 03/08/21 documented as of this encounter
--- OUTSIDE RECORDS SUMMARY | 2025-08-28 08:28 | XMS_ITS | Clinical Summary ---
Author Organization [facility] Address [address] [place] [address] Care Team Providers Care Coating Mixer Name Role Phone Jay Howell MD Primary Care Provider [phone] Allergies Active Allergy Reactions Criticality Noted Date Comments Morphine And Codeine Other (See Comments),Unknown - Low Severity,Unknown (See Comments) Low 2014 Listed per [facility] MAR. Nitrofurantoin Unknown - Low Severity [...] 03/23/2024 History of pulmonary embolus (PE) 03/14/2024 terminal block assembler current use of anticoagulant Fatigue 03/14/2024 Atopic [...] of chest/PE protocol. Patient was sent to [facility] radiology department for CT scan today. [...] new referral to a cardiovascular surgeon at [facility]. She reports she has seen Dr. Mickey Alcantara in the past. Coronary artery disease invo lving coronary bypass graft of inupiat heart without angina pectoris 04/28/2023 Assessment & Plan (09/30/2023 4:12 PM EST): She is on Statin, BB,CCB, ARB, ASA, Ranexa, and Warfarin. Continue current medication. Assessment & Plan (05/02/2023 5:03 PM EDT): She has a known history of coronary artery disease. She has denied any chest pain. Her last heart catheterization was November 25, 2022 at [facility] in [place] showing: -last [facility] 11/25/2022- A. 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
--- OUTSIDE RECORDS SUMMARY | 2025-08-28 08:28 | XMS_ITS | Encounter Summary ---
Author Organization [facility] Address [address] [place] [address] Care Team Providers Care Closed Circuit Screen Watcher Name Role Phone Jay Howell MD Primary Care Provider [phone] Reason for Visit * Reason Onset Date Comments Returned Call 07/02/2025 Encounter Details Date Type Department Care Team (Late st Contact Info) Description 07/02/2025 Telephone [facility] [address] [place] [address] Returned Call Social History Tobacco [...] drink first t kathleen in the morning (EYE-VP) to steady your nerves or to get [...] Clinical Concern/Question Reason for Call: Sarah with [facility] in [place] called, saying that pt needs a STAT appt for a void trail. They have done 2 but she failed both of them. I explained we need a referral, but she is saying they cannot send us a referral or records until we send them a request for the referral and records. Their fax for medical records is [phone]. Please give her a call back. Thanks! Best contact number: Other: [phone] Optimal time of day to reach caller: ANYTIME Additional comments/information from caller: None Note: Please do not reply to this message. Follow-up communication and further actions as a result of this message need to be communicated with the patient directly, if the patient is not active onMyChart. If the patient is active on MyChart, they will receive notification of the communication/outcome via [employer]. documented in this encounter Plan of Treatment [...] documented as of this encounter Care Teams Closed Circuit Screen Watcher Relationship Specialty Start Date End Date Jay Howell MD [address] [place], [place] [address] PCP - General 03/08/21 documented as of this encounter
--- OUTSIDE RECORDS SUMMARY | 2025-08-28 08:28 | XMS_ITS | Encounter Summary ---
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 SHE CAN FILL OUT THE SHARON FORM AT HER APPT IF THEY NEED ANYTHING OTHER THAN WHAT WE CAN SEE. THANKS. * Telephone Encounter - Radha Prince RegSched Rep - 07/02/2025 10:43 AM EDT Caller: Miladis Montoya Relationship: Self Best call back number: [phone] What form or medical record are you requesting: MEDICAL RECORDS. Who is requesting this form or medical record from you: DR FLOR LÓPEZ WITH [facility] [place], [place] How would you like to receive the form or medical records (pick-up, mail, fax): FAX If fax, what is the fax number: [phone] Timeframe paperwork needed: PAU[place]TTE - BEFORE APPOINTMENT ON 07.10.25 Additional notes: PATIENT HAS APPOINTMENT WITH [place] [facility] ON 07.10.25 AND NEEDS TO HAVE MEDICAL RECORDS FROM [facility] SENT OVER. HOWEVER, [facility] NEEDS A MEDICAL RECORDS REQUEST FORM FROM THE OFFICE BEFORE THEY ARE WILLING TO FAX THEM TO US. documented in this encounter Plan of Treatment Not on file documented as of this encounter Visit Diagnoses Not on filedocumented in this encounter Care Teams Vocal Music Teacher Relationship Specialty Start Date End Date Jay Howell MD [address] [place] [address] PCP - General Emergency Medicine 04/28/23 documented as of this encounter
--- OUTSIDE RECORDS SUMMARY | 2025-08-28 08:29 | XMS_ITS | Encounter Summary ---
Author Organization [facility] Address [address] [place] [id number] Care Team Providers Care Butadiene Convertor Operator Name Role Phone Jay Howell MD Primary Care Provider Encounter Details Date Type Department Care Team (Late st Contact Info) Description 07/09/2025 Telephone [place] [facility] [address] [place] [address] [place] [address] Social History Tobacco Use Types Packs/Day [...] slept in a jail (including now)? No 08/06/2024 CAGE ASSESSMENT Answer [...] drink first t kathleen in the morning (EYE-FABRIC COATING SUPERVISOR) to steady your nerves or to [...] documented as of this encounter Care Teams Butadiene Convertor Operator Relationship Specialty Start Date End Date Jay Howell MD [address] [place], [place] [address] PCP - General 03/08/21 documented as of this encounter
--- OUTSIDE RECORDS SUMMARY | 2025-08-28 08:29 | XMS_ITS | Encounter Summary ---
Author Organization [facility] Address [address] [place] [address] Care Team Providers Care Manager Chinese Name Role Phone Jay Howell MD Primary Care Provider [phone] Encounter Details Date Type Department Care Team (Late st Contact Info) Description 06/08/2012 Conversion Encounter [facility] HISTORICAL CONV [address] [place] [address] Interface, See Report Social History [...] Amado M.D. ' Kailey Ruff APRN [address] [facility], [address] [place] [address] [place] NEW PATIENT EVALUATION SKYLER MONTOYA : 1940 [...] to Macrodantin. SOCIAL HISTORY: She lives in [place] with her . She is accompanied today by her buhzsnoh-ex-kod who is also a patient of our practice. 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 She is not working now. She does [...] dryness and this is managed by an antenna machine operator. She has the hematuria and pain with [...] repeat her anticardiolipin antibody since this can private branch exchange installer time. If the anticardiolipin antibody is persistently [...] about her diagnosis of pulmonary embolus at [facility] and any additional testing done at that [...] available. Tana Rivera M.D.* TRUNG/rxaldarlene Doc. ID [id number] Rev. #0 cc: Avtar Moeller M.D.* Dr. Etienne De La Paz Page 4 of 4 Page 1 of 4 Authenticated and Edited by TANA RIVERA M.D. On 06/09/12 3:24:05 PM * Interface, See Report - 06/08/2012 4:16 PM EDT Zurdo Schuler M.D. ' Tana Rivera M.D. ' Rosalio Marie M.D. ' STEPHANIE Quezada M.D. ' Heath Amado M.D. ' Kailey Ruff APRN [address] [place] [address], [place] [address] [place] [address] [facility] OFFICE NOTE SKYLER MONTOYA : 1940 DATE [...] and I will try to get social welfare clerk to give her some help with this. Also, I will speak to Dr. De La Paz about this and I have a call into his office. Tana Rivera M.D.* TRUNG/ruperto Doc. ID [id number] Rev. #0 cc: Etienne De La Paz Jr., M.D.* Avtar Moeller M.D.* Page 2 of 2 Page 1 of 2 Authenticated by TANA RIVERA M.D. On 07/07/2012 04:36:41 PM * Interface, See Report - 06/08/2012 4:16 PM EDT Zurdo Schuler M.D. ' Tana Rivera M.D. ' Rosalio Marie M.D. ' STEPHANIE Quezada M.D. ' Heath Amado M.D. ' Kailey Ruff APRN [address] [facility], [address] [place] [id number] [place] OFFICE NOTE SKYLER MONTOYA : 1940 DATE [...] antibodies. Tana Rivera M.D.* RME/rxalw Doc. ID [id number] Rev. #0 cc: Avtar Moeller M.D.* Page 2 of 2 Page 1 of 2 Authenticated by TANA RIVERA M.D. On 08/15/2012 09:44:06 AM * Interface, See Report - 06/08/2012 4:16 PM EDT Zurdo Schuler M.D. ' Tana Rivera M.D. ' Rosalio Marie M.D. ' STEPHANIE Quezada M.D. ' David Calvillo M.D. ' Heath Amado M.D. ' Kailey Ruff APRN [address] [place] [address] [place] [address] [place] OFFICE NOTE SKYLER MONTOYA : 1940 DATE [...] develop. Tana Rivera M.D.* RMEmiliano/rxalw Doc. ID [id number] Rev. #0 cc: Avtar Moeller M.D.* Jorje Watters M.D.* SKYLER MONTOYA : 1940 DATE OF VISIT: 04/26/2013 Page 2 of 2 Page 1 of 2 DOCUMENT CODE :[facility]: PHYSICIAN CODE :[id number]: Authenticated by TANA RIVERA M.D. On 05/04/2013 10:54:04 AM * Interface, See Report - 06/08/2012 4:16 PM EDT Zurdo Schuler M.D. ' Tana Rivera M.D. ' Rosalio Marie M.D. ' STEPHANIE Quezada M.D. ' David Cavlillo M.D. ' Heath Amado M.D. ' Kailey Ruff APRN [facility] [facility], [place] [address] [place] [address] [facility] OFFICE NOTE SKYLER MONTOYA : 1940 DATE [...] develop. Tana Rivera M.D.* RMEmiliano/rxalw Doc. ID [id number] Rev. #0 cc: Avtar Moeller M.D.* Etienne De La Paz Jr., M.D.* Jorje Watters M.D.* SKYLER MONTOYA : 1940 DATE OF VISIT: 07/12/2013 Page 2 of 2 Page 1 of 2 DOCUMENT CODE :[facility]: PHYSICIAN CODE :[id number]: Authenticated by TANA RIVERA M.D. On 07/16/2013 01:57:36 PM documented in this encounter Plan of Treatment Not on file documented as of this encounter Visit Diagnoses Not on filedocumented in this encounter Care Teams Manager Chinese Relationship Specialty Start Date End Date Jay Howell MD [address] [place] [address] PCP - General Emergency Medicine 04/28/23 documented as of this encounter
--- OUTSIDE RECORDS SUMMARY | 2025-08-28 08:29 | XMS_ITS | Encounter Summary ---
Author Organization [facility] [place] [address] Care Team Providers Care Belly Dancer Name Role Phone No Pcp, Per Patient Primary Care Provider Evelyne prabhakar Reason for Referral * Interventional Radiology (Routine) - Pending Review Specialty Diagnoses / Procedures Referred By Contac t Referred To Contact Radiology Diagnoses PAD (peripheral artery disease) Critical limb ischemia of left lower extremity (HCC) Procedures IR ANGIOGRAM FEMORAL ARTERIO SHIFT Vargas Wolf MD [address] [place] [address] Phone: tel: fax: Referral ID Status Reason Start Date Expiration Date V isits Requested Visits Authorized [id number] Pending Review 08/21/2025 08/21/2026 1 1 Encounter Details Date Type Department Care Team (Late st Contact Info) Description 08/21/2025 Orders Only [facility] Surg Edg [address] [facility] [address] [place] [address] Mary Lombardi MA PAD (peripheral artery disease) (Primary Dx); Critical limb ischemia of left lower extremity (HCC) Social History Tobacco Use Types Packs/Day Years Used Date Smoking Tobacco: Former Cigarettes Q uit: 1991 Passive Smoke Exposure: Past Smokeless Tobacco: Never Alcohol Use Standard Drinks/Week Comments Not Currently 0 (1 standard drink = 0.6 oz pur e alcohol) [facility] Utilities Answer Date Recorded In the [...] Date Recorded PHQ-2 Total Score 0 06/23/2025 [facility] - Occupational [...] money to get more. Never true 06/23/2025 [facility] IP Transportation Answer D ate [...] PM EST Hospital Encounter EDG IR One [facility] [address] Vargas Wolf MD [address] [facility] [place] [address] Buzz Hernandez CRNA [address] [place] [address] Scheduled Orders Name Type Priority Associated Diagnoses Orde r Schedule IR ANGIOGRAM FEMORAL ARTERIO SHIFT Imaging Routine PAD (peripheral artery disease) Critical limb ischemia of left lower extremity (HCC) 1 Occurrences starting 08/21/2025 until 08/21/2026 documented as of this encounter Visit Diagnoses [...] documented as of this encounter Care Teams Belly Dancer Relationship Specialty Start Date End Date No Pcp, Per Patient PCP - General 06/04/24 documented as of this encounter
--- OUTSIDE RECORDS SUMMARY | 2025-08-28 08:29 | XMS_ITS | Encounter Summary ---
Author Organization [place] [address] Care Team Providers Care Manager Baby Name Role Phone No Pcp, Per Patient Primary Care Provider Evelyne prabhakar Reason for Visit * Reason Onset Date Comments Procedure 08/21/2025 Angiogram Detail s Encounter Details Date Type Department Care Team (Late st Contact Info) Description 08/21/2025 Telephone [facility] Surg Ed[facility] [address] [facility] [address] [place] [address] Mary Lombardi MA Procedure (Angiogram Details ) Social History Tobacco Use Types Packs/Day Years Used Date Smoking Tobacco: Former Cigarettes Q uit: 1991 Passive Smoke Exposure: Past Smokeless Tobacco: Never Alcohol Use Standard Drinks/Week Comments Not Currently 0 (1 standard drink = 0.6 oz pur e alcohol) [facility] Utilities Answer Date Recorded In the past 12 months has Cash Check Card, gas, oil, or water [employer] threatened to shut off services in your home? No 06/23/2025 Overall Financial Resource Strain (CARDIA) Answe r Date Recorded How hard is it for you to pa y for the very basics like food, housing, medical care, and heating? Not very hard 06/23/2025 PHQ-2 Answer Date Recorded PHQ-2 Total Score 0 06/23/2025 [facility]at [facility] - Occupational Stress [...] money to get more. Never true 06/23/2025 [facility] [...] encounter Miscellaneous Notes * Telephone Encounter - Mary Lombardi MA - 08/21/2025 3:18 PM EST Spoke with Makenzie at [place]. [phone]. Let her know I would be faxing Miladis's angiogram information to her at [phone]. She said she would call Miladis's son since we only have her as an emergency contact. He will be providing transport. Fax confirmation receipt rec'd. The following arrangements have been made for your Angiogram: Hospital: [facility] Date: 08/28/2025 Time: 12:00 PM Arrival Time: 10:30 AM You are to have nothing to eat or drink after midnight on 08/27/2025. You should report to zone 3A, outpatient entrance. You will need someone to drive you home following the procedure. No restrictions from a vascular standpoint. Continue aspirin as normal. All other medications can be taken with small sips of water the morning of your procedure per anesthesia's instructions. This is an estimated time for your procedure. Please realize sometimes procedures take longer than expected and you may have a short wait time prior to your procedure. Failure to arrive at your scheduled arrival time may result in cancellation of your procedure. documented in this encounter Plan of Treatment Upcoming Encounters Date Type Department Care Team (Late st Contact Info) Description 08/28/2025 12:00 PM EST Hospital Encounter EDG IR [facility] [place] [address] Vargas Wolf MD [address] [facility] [place] [address] Buzz Hernandez CRNA [address] [facility] [address] [place] [address] documented as of this encounter Visit Diagnoses Not on filedocumented in this encounter Additional Health Concerns Infection Onset Date Last Indicated Resolved Time ESBL organism Comment:ESBL urine: 05/23, 06/1205/23/2025 06/12/2025 Assessment Noted Time A fall risk assessment has been complete d for the patient 02/08/2025 11:32 AM EDT documented as of this encounter Care Teams Manager Baby Relationship Specialty Start Date End Date No Pcp, Per Patient PCP - General 06/04/24 documented as of this encounter
--- OUTSIDE RECORDS SUMMARY | 2025-08-28 08:29 | XMS_ITS | Clinical Summary ---
Author Organization [facility] Address [address] [place] [address] Care Team Providers Care Forge Heater Name Role Phone Unavailable Primary Care Provider [...]
[2025-08-28 08:37] LABS: Bilirubin,Urine Negative (Negative); Color,Urine YELLOW (Yellow); Glucose,Urine (UA) Negative (Negative); Ketones,Urine Negative (Negative); Leukocyte Esterase,Urine TRACE (Negative); PH,Urine 6.0 (5.0-8.5); Protein,Urine Negative (Negative); Specific Gravity, Urine 1.020 (1.005-1.030); Urobilinogen,Urine 0.2 EU/dl (0.2)
[2025-08-28 09:15] LABS: RBC,Urine Occasional #/hpf (0-3); Squamous Epithelial Cell,Urine Occasional #/hpf (0-5); WBC,Urine Occasional #/hpf (0-3)
--- OUTSIDE RECORDS SUMMARY | 2025-08-28 12:00 | XMS_ITS | Encounter Summary ---
Author Organization [place] [address] Care Team Providers Care Account Technician Name Role Phone No Pcp, Per Patient Primary Care Provider Evelyne prabhakar Reason for Visit * Interventional Radiology (Routine) - Pending Review Specialty Diagnoses / Procedures Referred By Luis t Referred To Contact Radiology Diagnoses PAD (peripheral artery disease) Critical limb ischemia of left lower extremity (HCC) Procedures IR ANGIOGRAM FEMORAL ARTERIO SHIFT Vargas Wolf MD [address] [place] [address] [place] [address] Phone: tel: fax: Referral ID Status Reason Start Date Expiration Date V isits Requested Visits Authorized [id number] Pending Review 08/21/2025 08/21/2026 1 1 Encounter Details Date Type Department Care Team (Late st Contact Info) Description 08/28/2025 12:00 PM EST Hospital Encounter EDG IR [facility] [place] [address] Vargas Wolf MD [address] [place] [address] [place] [address] Buzz Hernandez CRNA [address] [facility] [address] [place] [address] Social History Tobacco Use Types Packs/Day Years Used Date Smoking Tobacco: Former Cigarettes Q uit: 1991 Passive Smoke Exposure: Past Smokeless Tobacco: Never Alcohol Use Standard Drinks/Week Comments Not Currently 0 (1 standard drink = 0.6 oz pur e alcohol) [facility] Utilities Answer Date Recorded In the [...] Date Recorded PHQ-2 Total Score 0 06/23/2025 [facility] of Occupat ional Health - Occupational [...] money to get more. Never true 06/23/2025 [facility] IP Transportation Answer D ate Recorded In [...] documented as of this encounter Care Teams Account Technician Relationship Specialty Start Date End Date No Pcp, Per Patient PCP - General 06/04/24 documented as of this encounter
--- OUTSIDE RECORDS SUMMARY | 2025-08-28 23:59 | XMS_ITS | Encounter Summary ---
Author Organization [place] [address] Care Team Providers Care Curing Pickling Packer Name Role Phone No Pcp, Per Patient Primary Care Provider Evelyne prabhakar Encounter Details Date Type Department Care Team (Late st Contact Info) Description 08/28/2025 11:59 PM EST Anesthesia Event EDG IR [facility] [place] [address] Record, Felicia Thornton APRN [address] [place] [address] [place] [address] Anesthesia Record Procedure Summary Procedure Name Responsible Anesthesiologist Anesthesia Start Time Anesthesia Stop Time IR ANGIOGRAM FEMORAL ARTERIO SHIFT Events No events on file. Meds * [...] 0.6 oz pur e alcohol) [facility] Utilities Answer Date Recorded In [...] Date Recorded PHQ-2 Total Score 0 06/23/2025 [facility] [place] of Occupat ional Health - Occupational Stress [...] to get more. Never true 06/23/2025 [facility] IP Transportation Answer D ate Recorded [...] PM EST Hospital Encounter EDG IR [address] [facility] [place] [address] Vargas Wolf MD [address] [place] [address] Buzz Hernandez CRNA [address] [place] [address] documented as of this encounter Visit Diagnoses Not on filedocumented in this encounter Additional Health Concerns Infection Onset Date Last Indicated Resolved Time ESBL organism Comment:ESBL urine: 05/23, 06/1205/23/2025 06/12/2025 Assessment Noted Time A fall risk assessment has been complete d for the patient 02/08/2025 11:32 AM EDT documented as of this encounter Care Teams Curing Pickling Packer Relationship Specialty Start Date End Date No Pcp, Per Patient PCP - General 06/04/24 documented as of this encounter
== END 2025-08-28 23:59 | disposition home or self-care (01) ==
LOC: LAB.DROPOF 08:20
PROVIDERS: PCP Family Medicine; Visit Provider Family Medicine
DX: Z87.440 Personal history of urinary (tract) infections (principal)
CPT/HCPCS: 81001

== ENCOUNTER 2025-10-12 21:37 | Inpatient (IN) | payer MEDICARE, SELFPAY ==
--- OUTSIDE RECORDS SUMMARY | 2025-02-05 07:00 | XMS_ITS | Encounter Summary ---
Author Organization [place] [address] Care Team Providers Care Cardiothoracic Anesthesia Technician Name Role Phone No Pcp, Per Patient Primary Care Provider Evelyne prabhakar Encounter Details Date Type Department Care Team (Latest Contact Info) Description 02/05/2025 8:00 AM EDT Hospital Encounter [facility] Referral Lab [address] [place] [address] Valentino Ugalde MD [address] [place] [address] [address] [place] [address] Encounter for general adult medical examination without abnormal findings Social History Tobacco Use Types Packs/Day Years Used Date Smoking Tobacco: Former Cigarettes Q uit: 1991 Passive Smoke Exposure: Past Smokeless Tobacco: Never Alcohol Use Standard Drinks/Week Comments Not Currently 0 (1 standard drink = 0.6 oz pur e alcohol) [facility] Utilities Answer Date Recorded In the past 12 months has [employer], gas, oil, or water [email or web address] threatened to shut off services in your home? No 06/23/2025 Overall Financial Resource Strain (CARDIA) Answe r Date Recorded How hard is it for you to pa y for the very basics like food, housing, medical care, and heating? Not very hard 06/23/2025 PHQ-2 Answer Date Recorded PHQ-2 Total Score 0 06/23/2025 [facility] Occup[facility] - Occupational Stress Questionnaire Answer Date Recorded Do you feel stress - tense, restless, nervous, or anxious, or unable to sleep at night because your mind is troubled all the time - these days? Not at all 06/23/2025 Exercise Vital Sign Answer Date Recorde d On average, how many days pe r week do you engage in moderate to strenuous exercise (like a brisk walk)? 0 days 06/23/2025 On average, how many minutes do you engage in exercise at this level? 0 min 06/23/2025 Hunger Vital Sign Answer Date Recorded Within the past 12 months, y ou worried that your food would run out before you got the money to buy more. Never true 06/23/20 25 Within the past 12 months, t he food you bought just didn't last and you didn't have money to get more. Never true 06/23/2025 [facility] IP Transportation Answer D ate Recorded In the past 12 months, has l ack of reliable transportation kept you from medical appointments, meetings, work or from getting things needed for daily living? No 06/23/2025 Sexually Active Control Partners Comments Not Currently Male Comments No Sex and Gender Information Value Date Recorded Sex Assigned at Not on file Legal Sex Female 12:25 PM EDT Gender Identity Not on file Sexual Orientation Not on file documented as of this encounter Functional Status * Question Answer Date of Assessment Author Little interest or pleasure in doing things 0 06/23/2025 4:12 PM EDT Chio Garber R N Feeling down, depressed, or hopeless 0 04/2025 4:12 PM EDT Chio Garber RN PHQ-2 Total Score 0 06/23/2025 4:12 PM EDT Chio Garber RN * PHQ-9 Total Score Answer Date of Assessment Author 0 06/23/2025 4:12 PM EDT Sha Garber RN * PHQ-2 Total Score Answer Date of Assessment Author 0 06/23/2025 4:12 PM EDT Sha Garber RN documented as of this encounter Plan of Treatment Not on file documented as of this encounter Results * (ABNORMAL) COMPREHENSIVE METABOLIC PANEL (02/12/2025 4:50 AM EDT) Sodium 136 136 - 145 mmol/L 02/12/2025 7:12 AM EDT [facility] Potassium 4.4 3.5 - 5.0 mmol/L 02/12/2025 7:12 AM EDT [facility] Chloride 102 98 - 107 mmol/L 02/12/2025 7:12 AM EDT [facility] Total CO2 24 22 - 29 mmol/L 02/12/2025 7:12 AM EDT [facility] Anion Gap 10 7 - 16 mmol/L 02/12/2025 7:12 AM EDT [facility] Calcium 9.1 8.8 - 10.4 mg/dL 02/12/2025 7:12 AM EDT [facility] Glucose Lvl 101(H) 70 - 99 mg/dL 02/12/2025 7:12 AM EDT [facility] BUN 17 8 - 23 mg/dL 02/12/2025 7:12 AM EDT [facility] Creatinine 1.10 0.51 - 1.30 mg/dL 02/12/2025 7:12 AM EDT [facility] Albumin 3.4 3.2 - 4.6 gm/dL 02/12/2025 7:12 AM EDT [facility] Total Protein 6.2(L) 6.4 - 8.3 gm/dL 02/12/2025 7:12 AM EDT [facility] Bili Total 0.6 0.2 - 1.3 mg/dL 02/12/2025 7:12 AM EDT [facility] ALT 18 <=41 U/L 02/12/2025 7:12 AM EDT [facility] AST 25 <=40 U/L 02/12/2025 7:12 AM EDT [facility] Alk Phos 143(H) 36 - 123 U/L 02/12/2025 7:12 AM EDT [facility] eGFR (CKD-EPIcr 2020) 49(L) >=60 mL/min/1.7 3 m2 02/12/2025 7:12 AM EDT [facility] Comment:Estimated GFR was ca lculated using the CKD-EPIcr (2020) equation refit without race. The equation is recommended by the National Kidney Foundation - [place] [employer] of Nephrology Task Force. Blood VENOUS BLOOD / Unknown Venipuncture / Unknown 02/12/2025 4:50 AM EDT 02/12/2025 6:30 AM EDT us Valentino Ugalde MD CHEMISTRY ORDERABLES Final Resu lt [facility] [address] [facility] , [place] [address] documented in this encounter Visit Diagnoses Diagnosis Encounter for general adult medical examination without abnormal findings Routine general medical examination at a health care facility documented in this encounter Additional Health Concerns Infection Onset Date Last Indicated Resolved Time ESBL organism Comment:ESBL urine: 05/23, 06/1205/23/2025 06/12/2025 documented as of this encounter Care Teams Cardiothoracic Anesthesia Technician Relationship Specialty Start Date End Date No Pcp, Per Patient PCP - General 06/04/24 documented as of this encounter
--- OUTSIDE RECORDS SUMMARY | 2025-02-05 07:00 | XMS_ITS | Encounter Summary ---
Author Organization [place] [address] Care Team Providers Care Motor Assembler Name Role Phone No Pcp, Per Patient Primary Care Provider Evelyne prabhakar Encounter Details Date Type Department Care Team (Latest Contact Info) Description 02/05/2025 8:00 AM EDT Hospital Encounter [facility] Referral Lab 1 [place] [address] Valentino Ugalde MD [address] [place] [address] [address] [place] [address] Encounter for general adult medical examination without abnormal findings Social History Tobacco Use Types Packs/Day Years Used Date Smoking Tobacco: Former Cigarettes Q uit: 1991 Passive Smoke Exposure: Past Smokeless Tobacco: Never Alcohol Use Standard Drinks/Week Comments Not Currently 0 (1 standard drink = 0.6 oz pur e alcohol) [facility] Utilities Answer Date Recorded In the past 12 months has [employer], gas, oil, or water [employer] threatened to shut off services in your home? No 06/23/2025 Overall Financial Resource Strain (CARDIA) Answe r Date Recorded How hard is it for you to pa y for the very basics like food, housing, medical care, and heating? Not very hard 06/23/2025 PHQ-2 Answer Date Recorded PHQ-2 Total Score 0 06/23/2025 [facility] [place] of Occupat ional Health - Occupational Stress [...] money to get more. Never true 06/23/2025 [facility] IP Transportation Answer D ate Recorded In [...] as of this encounter Results * (ABNORMAL) CBC WITH DIFF (02/12/2025 4:50 AM EDT) WBC 3.3(L) 3.7 - 10.3 x10(3)/mcL 02/12/2025 6:52 AM EDT [facility] RBC 2.12(L) 3.90 - 5.20 x10(6)/mcL 02/12/2025 6:52 AM EDT [facility] Hgb 7.9(L) 11.2 - 15.7 g/dL 02/12/2025 6:52 AM EDT [facility] Hct 23.7(L) 34.0 - 45.0 % 02/12/2025 6:52 AM EDT [facility] MCV 111.8(H) 80.0 - 100.0 fL 02/12/2025 6:52 AM EDT [facility] MCH 37.3(H) 26.0 - 34.0 pg 02/12/2025 6:52 AM EDT [facility] MCHC 33.3 30.7 - 35.5 g/dL 02/12/2025 6:52 AM EDT [facility] RDW 13.0 <=14.9 % 02/12/2025 6:52 AM EDT [facility] Platelet 98(L) 155 - 369 x10(3)/mcL 02/12/2025 6:52 AM EDT [facility] MPV 12.3 8.8 - 12.5 fL 02/12/2025 6:52 AM EDT [facility] Neut Percent 47.9 % 02/12/2025 6:52 AM EDT [facility] Comment:Neutrophils equals s egs plus bands Imm Gran% 0.6 % 02/12/2025 6:52 AM EDT [facility] Comment:Automated count of m etamyelocytes, myelocytes and promyelocytes. Lymph Percent 38.2 % 02/12/2025 6:52 AM EDT [facility] [place] Percent 12.7 % 02/12/2025 6:52 AM EDT [facility] Eos Percent 0.0 % 02/12/2025 6:52 AM EDT [facility] Baso Percent 0.6 % 02/12/2025 6:52 AM EDT [facility] Neut # 1.6 1.6 - 6.1 x10(3)/mcL 02/12/2025 6:52 AM EDT [facility] Comment:Neutrophils equals s egs plus bands IMMGRAN# 0.0 0.0 - 0.1 x10(3)/mcL 02/12/2025 6:52 AM EDT [facility], [facility] Comment:Automated count of m etamyelocytes, myelocytes and promyelocytes. An absolute IG <0.1 is reported as 0.0. Lymph # 1.3 1.2 - 3.9 x10(3)/mcL 02/12/2025 6:52 AM EDT [facility] [place] # 0.4 0.3 - 0.9 x10(3)/[facility] 02/12/2025 6:52 AM EDT [facility] Eos# 0.0 0.0 - 0.5 x10(3)/[facility] 02/12/2025 6:52 AM EDT [facility] Baso # 0.0 0.0 - 0.1 x10(3)/[facility] 02/12/2025 6:52 AM EDT [facility], [employer] Blood VENOUS BLOOD / Unknown Venipuncture / Unknown 02/12/2025 4:50 AM EDT 02/12/2025 6:30 AM EDT us Valentino Ugalde MD HEMATOLOGY ORDERABLES Final Res ult [facility], [facility] [address] [facility] , [address] [place] [phone] documented in this encounter Visit Diagnoses Diagnosis Encounter for general adult medical examination without abnormal findings Routine general medical examination at a health care facility documented in this encounter Additional Health Concerns Infection Onset Date Last Indicated Resolved Time ESBL organism Comment:ESBL urine: 05/23, 06/1205/23/2025 06/12/2025 documented as of this encounter Care Teams Motor Assembler Relationship Specialty Start Date End Date No Pcp, Per Patient PCP - General 06/04/24 documented as of this encounter
--- OUTSIDE RECORDS SUMMARY | 2025-02-05 07:00 | XMS_ITS | Encounter Summary ---
Author Organization [place] [address] Care Team Providers Care Oncology Rep Name Role Phone No Pcp, Per Patient Primary Care Provider Evelyne prabhakar Encounter Details Date Type Department Care Team (Latest Contact Info) Description 02/05/2025 8:00 AM EDT Hospital Encounter [facility] Referral Lab 1 [place] [address] Valentino Ugalde MD [address] [place] [address] [address] [place] [address] Encounter for general adult medical examination without abnormal findings Social History Tobacco Use Types Packs/Day Years Used Date Smoking Tobacco: Former Cigarettes Q uit: 1991 Passive Smoke Exposure: Past Smokeless Tobacco: Never Alcohol Use Standard Drinks/Week Comments Not Currently 0 (1 standard drink = 0.6 oz pur e alcohol) [facility] Utilities Answer Date Recorded In the past 12 months has [employer], gas, oil, or water [employer] threatened to shut off services in your home? No 06/23/2025 Overall Financial Resource Strain (CARDIA) Answe r Date Recorded How hard is it for you to pa y for the very basics like food, housing, medical care, and heating? Not very hard 06/23/2025 PHQ-2 Answer Date Recorded PHQ-2 Total Score 0 06/23/2025 [facility] [place] of Occupat ional Health - Occupational Stress [...] money to get more. Never true 06/23/2025 [facility] IP Transportation Answer D ate Recorded In [...] 02/12/2025 7:12 AM EDT [facility] Potassium 4.4 3.5 - 5.0 mmol/L 02/12/2025 7:12 AM EDT [facility] Chloride 102 98 - 107 mmol/L 02/12/2025 7:12 AM EDT [facility] Total CO2 24 22 - 29 mmol/L 02/12/2025 7:12 AM EDT [facility] Anion Gap 10 7 - 16 mmol/L 02/12/2025 7:12 AM EDT [facility] Calcium 9.1 8.8 - 10.4 mg/dL 02/12/2025 7:12 AM EDT [facility] Glucose Lvl 101(H) 70 - 99 mg/dL 02/12/2025 7:12 AM EDT [facility] BUN 17 8 - 23 mg/dL 02/12/2025 7:12 AM EDT [facility] Creatinine 1.10 0.51 - 1.30 mg/dL 02/12/2025 7:12 AM EDT [facility] Albumin 3.4 3.2 - 4.6 gm/dL 02/12/2025 7:12 AM EDT [facility] Total Protein 6.2(L) 6.4 - 8.3 gm/dL 02/12/2025 7:12 AM EDT [facility] Bili Total 0.6 0.2 - 1.3 mg/dL 02/12/2025 7:12 AM EDT [facility] ALT 18 <=41 U/L 02/12/2025 7:12 AM EDT [facility] AST 25 <=40 U/L 02/12/2025 7:12 AM EDT [facility] Alk Phos 143(H) 36 - 123 U/L 02/12/2025 7:12 AM EDT [facility] eGFR (CKD-EPIcr 2020) 49(L) >=60 mL/min/1.7 3 m2 02/12/2025 7:12 AM EDT [facility] Comment:Estimated GFR was ca lculated using the CKD-EPIcr (2020) equation refit without race. The equation is recommended by the National Kidney Foundation - [place] Society of Nephrology Task Force. Blood VENOUS BLOOD / Unknown Venipuncture / Unknown 02/12/2025 4:50 AM EDT 02/12/2025 6:30 AM EDT us Valentino Ugalde MD CHEMISTRY ORDERABLES Final Resu lt [facility] [employer], [place] [address] [facility] , [place] [address] documented in this encounter Visit Diagnoses Diagnosis Encounter for general adult medical examination without abnormal findings Routine general medical examination at a health care facility documented in this encounter Additional Health Concerns Infection Onset Date Last Indicated Resolved Time ESBL organism Comment:ESBL urine: 05/23, 06/1205/23/2025 06/12/2025 documented as of this encounter Care Teams Oncology Rep Relationship Specialty Start Date End Date No Pcp, Per Patient PCP - General 06/04/24 documented as of this encounter
--- OUTSIDE RECORDS SUMMARY | 2025-02-05 07:00 | XMS_ITS | Encounter Summary ---
Author Organization [place] [address] Care Team Providers Care Postal Support Employee Name Role Phone No Pcp, Per Patient Primary Care Provider Evelyne prabhakar Encounter Details Date Type Department Care Team (Latest Contact Info) Description 02/05/2025 8:00 AM EDT Hospital Encounter [facility] Referral Lab 1 [place] [address] Valentino Ugalde MD [address] [place] [address] [address] [place] [address] Encounter for general adult medical examination without abnormal findings Social History Tobacco Use Types Packs/Day Years Used Date Smoking Tobacco: Former Cigarettes Q uit: 1991 Passive Smoke Exposure: Past Smokeless Tobacco: Never Alcohol Use Standard Drinks/Week Comments Not Currently 0 (1 standard drink = 0.6 oz pur e alcohol) [facility] Utilities Answer Date Recorded In the past 12 months has [employer], gas, oil, or water [employer] threatened to shut off services in your home? No 06/23/2025 Overall Financial Resource Strain (CARDIA) Answe r Date Recorded How hard is it for you to pa y for the very basics like food, housing, medical care, and heating? Not very hard 06/23/2025 PHQ-2 Answer Date Recorded PHQ-2 Total Score 0 06/23/2025 [facility] [place] of Occupat ional Health - Occupational Stress [...] money to get more. Never true 06/23/2025 [facility] IP Transportation Answer D ate Recorded In [...] 6:52 AM EDT [facility] [place] Percent 12.7 % 02/12/2025 6:52 AM EDT [...] x10(3)/mcL 02/12/2025 6:52 AM EDT [facility] [employer], [facility] Comment:Automated count of m etamyelocytes, myelocytes and promyelocytes. An absolute IG <0.1 is reported as 0.0. Lymph # 1.3 1.2 - 3.9 x10(3)/mcL 02/12/2025 6:52 AM EDT [facility] [place] # 0.4 0.3 - 0.9 x10(3)/[facility] 02/12/2025 6:52 AM EDT [facility] [employer] [facility] Eos# 0.0 0.0 - 0.5 x10(3)/[facility] 02/12/2025 6:52 AM EDT [facility] Baso # 0.0 0.0 - 0.1 x10(3)/[facility] 02/12/2025 6:52 AM EDT [facility] [employer], [employer] Blood VENOUS BLOOD / Unknown Venipuncture / Unknown 02/12/2025 4:50 AM EDT 02/12/2025 6:30 AM EDT us Valentino Ugalde MD HEMATOLOGY ORDERABLES Final Res ult [facility] [employer], [facility] [address] [facility] , [address] [place] [phone] documented in this encounter Visit Diagnoses Diagnosis Encounter for general adult medical examination without abnormal findings Routine general medical examination at a health care facility documented in this encounter Additional Health Concerns Infection Onset Date Last Indicated Resolved Time ESBL organism Comment:ESBL urine: 05/23, 06/1205/23/2025 06/12/2025 documented as of this encounter Care Teams Postal Support Employee Relationship Specialty Start Date End Date No Pcp, Per Patient PCP - General 06/04/24 documented as of this encounter
--- OUTSIDE RECORDS SUMMARY | 2025-02-05 07:00 | XMS_ITS | Encounter Summary ---
Author Organization [place] [address] Care Team Providers Care Coil Tester Name Role Phone No Pcp, Per Patient Primary Care Provider Evelyne prabhakar Encounter Details Date Type Department Care Team (Latest Contact Info) Description 02/05/2025 8:00 AM EDT Hospital Encounter [facility] Referral Lab 1 [place] [address] Valentino Ugalde MD [address] [place] [address] [address] [place] [address] Encounter for general adult medical examination without abnormal findings Social History Tobacco Use Types Packs/Day Years Used Date Smoking Tobacco: Former Cigarettes Q uit: 1991 Passive Smoke Exposure: Past Smokeless Tobacco: Never Alcohol Use Standard Drinks/Week Comments Not Currently 0 (1 standard drink = 0.6 oz pur e alcohol) [place] Utilities Answer Date Recorded In the past 12 months has [employer], gas, oil, or water [employer] threatened to shut off services in your home? No 06/23/2025 Overall Financial Resource Strain (CARDIA) Answe r Date Recorded How hard is it for you to pa y for the very basics like food, housing, medical care, and heating? Not very hard 06/23/2025 PHQ-2 Answer Date Recorded PHQ-2 Total Score 0 06/23/2025 [facility] [place] of Occupat ional Health - Occupational Stress [...] money to get more. Never true 06/23/2025 [facility] IP Transportation Answer D ate Recorded [...] as of this encounter Results * (ABNORMAL) PREALBUMIN (02/12/2025 4:50 AM EDT) Prealbumin 8.9(L) 20.0 - 40.0 mg/dL 02/12/2025 7:15 AM EDT [employer] Blood VENOUS BLOOD / Unknown Venipuncture / Unknown 02/12/2025 4:50 AM EDT 02/12/2025 6:30 AM EDT us Valentino Ugalde MD CHEMISTRY ORDERABLES Final Resu lt [facility] [employer] [address] [facility] , [place] [address] documented in this encounter Visit Diagnoses Diagnosis Encounter for general adult medical examination without abnormal findings Routine general medical examination at a health care facility documented in this encounter Additional Health Concerns Infection Onset Date Last Indicated Resolved Time ESBL organism Comment:ESBL urine: 05/23, 06/1205/23/2025 06/12/2025 documented as of this encounter Care Teams Coil Tester Relationship Specialty Start Date End Date No Pcp, Per Patient PCP - General 06/04/24 documented as of this encounter
--- OUTSIDE RECORDS SUMMARY | 2025-02-05 07:00 | XMS_ITS | Encounter Summary ---
Author Organization [place] [address] Care Team Providers Care Car And Yard Supervisor Name Role Phone No Pcp, Per Patient Primary Care Provider Evelyne prabhakar Encounter Details Date Type Department Care Team (Latest Contact Info) Description 02/05/2025 8:00 AM EDT Hospital Encounter [facility] Referral Lab 1 [place] [address] Valentino Ugalde MD [address] [place] [address] [address] [place] [address] Encounter for general adult medical examination without abnormal findings Social History Tobacco Use Types Packs/Day Years Used Date Smoking Tobacco: Former Cigarettes Q uit: 1991 Passive Smoke Exposure: Past Smokeless Tobacco: Never Alcohol Use Standard Drinks/Week Comments Not Currently 0 (1 standard drink = 0.6 oz pur e alcohol) [facility] Utilities Answer Date Recorded In the past 12 months has [employer], gas, oil, or water [employer] threatened to shut off services in your home? No 06/23/2025 Overall Financial Resource Strain (CARDIA) Answe r Date Recorded How hard is it for you to pa y for the very basics like food, housing, medical care, and heating? Not very hard 06/23/2025 PHQ-2 Answer Date Recorded PHQ-2 Total Score 0 06/23/[address] [facility] [place] of Occupat ional Health - Occupational Stress [...] money to get more. Never true 06/23/2025 [facility] IP Transportation Answer D ate Recorded In [...] as of this encounter Plan of Treatment Scheduled Orders Name Type Priority Associated Diagnoses Orde r Schedule PREALBUMIN Lab Routine Encounter for general adult medical [...] documented as of this encounter Care Teams Car And Yard Supervisor Relationship Specialty Start Date End Date No Pcp, Per Patient PCP - General 06/04/24 documented as of this encounter
--- OUTSIDE RECORDS SUMMARY | 2025-02-05 07:00 | XMS_ITS | Encounter Summary ---
Author Organization [place] [address] Care Team Providers Care Hose Handler Name Role Phone No Pcp, Per Patient Primary Care Provider Evelyne prabhakar Encounter Details Date Type Department Care Team (Latest Contact Info) Description 02/05/2025 8:00 AM EDT Hospital Encounter [facility] Referral Lab 1 [place] [address] Valentino Ugaled MD [address] [place] [address] [address] [place] [address] Encounter for general adult medical examination without abnormal findings Social History Tobacco Use Types Packs/Day Years Used Date Smoking Tobacco: Former Cigarettes Q uit: 1991 Passive Smoke Exposure: Past Smokeless Tobacco: Never Alcohol Use Standard Drinks/Week Comments Not Currently 0 (1 standard drink = 0.6 oz pur e alcohol) [facility] Utilities Answer Date Recorded In the past 12 months has [employer], gas, oil, or water [employer] threatened to shut off services in your home? No 06/23/2025 Overall Financial Resource Strain (CARDIA) Answe r Date Recorded How hard is it for you to pa y for the very basics like food, housing, medical care, and heating? Not very hard 06/23/2025 PHQ-2 Answer Date Recorded PHQ-2 Total Score 0 06/23/2025 [facility] [place] of Occupat ional Health - Occupational Stress [...] money to get more. Never true 06/23/2025 [facility] IP Transportation Answer D ate Recorded In [...] documented as of this encounter Care Teams Hose Handler Relationship Specialty Start Date End Date No Pcp, Per Patient PCP - General 06/04/24 documented as of this encounter
--- OUTSIDE RECORDS SUMMARY | 2025-02-05 07:00 | XMS_ITS | Encounter Summary ---
Author Organization [place] [address] Care Team Providers Care Manager Of Tax Name Role Phone No Pcp, Per Patient Primary Care Provider Evelyne prabhakar Encounter Details Date Type Department Care Team (Latest Contact Info) Description 02/05/2025 8:00 AM EDT Hospital Encounter [facility] Referral Lab 1 [place] [address] Valentino Ugalde MD [address] [place] [address] [address] [place] [address] Encounter for general adult medical examination without abnormal findings Social History Tobacco Use Types Packs/Day Years Used Date Smoking Tobacco: Former Cigarettes Q uit: 1991 Passive Smoke Exposure: Past Smokeless Tobacco: Never Alcohol Use Standard Drinks/Week Comments Not Currently 0 (1 standard drink = 0.6 oz pur e alcohol) [facility] Utilities Answer Date Recorded In the past 12 months has [employer], gas, oil, or water [employer] threatened to shut off services in your home? No 06/23/2025 Overall Financial Resource Strain (CARDIA) Answe r Date Recorded How hard is it for you to pa y for the very basics like food, housing, medical care, and heating? Not very hard 06/23/2025 PHQ-2 Answer Date Recorded PHQ-2 Total Score 0 06/23/2025 [facility] [place] of Occupat ional Health - Occupational Stress [...] Never true 06/23/2025 [facility] IP Transportation Answer D ate Recorded [...] documented as of this encounter Care Teams Manager Of Tax Relationship Specialty Start Date End Date No Pcp, Per Patient PCP - General 06/04/24 documented as of this encounter
--- OUTSIDE RECORDS SUMMARY | 2025-02-05 07:00 | XMS_ITS | Encounter Summary ---
Author Organization [place] [address] Care Team Providers Care Manager Food Beverage Name Role Phone No Pcp, Per Patient Primary Care Provider Evelyne prabhakar Encounter Details Date Type Department Care Team (Latest Contact Info) Description 02/05/2025 8:00 AM EDT Hospital Encounter [facility] Referral Lab 1 [place] [address] Valentino Ugalde MD [address] [place] [address] [address] [place] [address] Encounter for general adult medical examination without abnormal findings Social History Tobacco Use Types Packs/Day Years Used Date Smoking Tobacco: Former Cigarettes Q uit: 1991 Passive Smoke Exposure: Past Smokeless Tobacco: Never Alcohol Use Standard Drinks/Week Comments Not Currently 0 (1 standard drink = 0.6 oz pur e alcohol) [facility] Utilities Answer Date Recorded In the past 12 months has [employer], gas, oil, or water [employer] threatened to shut off services in your home? No 06/23/2025 Overall Financial Resource Strain (CARDIA) Answe r Date Recorded How hard is it for you to pa y for the very basics like food, housing, medical care, and heating? Not very hard 06/23/2025 PHQ-2 Answer Date Recorded PHQ-2 Total Score 0 06/23/2025 [facility] [place] of Occupat ional Health - Occupational Stress [...] money to get more. Never true 06/23/[address] [facility] IP Transportation Answer D ate Recorded [...] - 40.0 mg/dL 02/12/2025 7:15 AM EDT [facility] Blood VENOUS BLOOD / Unknown Venipuncture / Unknown 02/12/2025 4:50 AM EDT 02/12/2025 6:30 AM EDT us Valentino Ugalde MD CHEMISTRY ORDERABLES Final Resu lt [facility] [place] 1 [facility] , [place] [address] documented in this encounter Visit Diagnoses Diagnosis Encounter for general adult medical examination without abnormal findings Routine general medical examination at a health care facility documented in this encounter Additional Health Concerns Infection Onset Date Last Indicated Resolved Time ESBL organism Comment:ESBL urine: 05/23, 06/1205/23/2025 06/12/2025 documented as of this encounter Care Teams Manager Food Beverage Relationship Specialty Start Date End Date No Pcp, Per Patient PCP - General 06/04/24 documented as of this encounter
--- OUTSIDE RECORDS SUMMARY | 2025-02-05 07:00 | XMS_ITS | Encounter Summary ---
Author Organization [place] [address] Care Team Providers Care Clipper Automatic Name Role Phone No Pcp, Per Patient Primary Care Provider Evelyne prabhakar Encounter Details Date Type Department Care Team (Latest Contact Info) Description 02/05/2025 8:00 AM EDT Hospital Encounter [facility] Referral Lab 1 [place] [address] Valentino Ugalde MD [address] [place] [address] [address] [place] [address] Encounter for general adult medical examination without abnormal findings Social History Tobacco Use Types Packs/Day Years Used Date Smoking Tobacco: Former Cigarettes Q uit: 1991 Passive Smoke Exposure: Past Smokeless Tobacco: Never Alcohol Use Standard Drinks/Week Comments Not Currently 0 (1 standard drink = 0.6 oz pur e alcohol) [facility] Utilities Answer Date Recorded In the past 12 months has [employer], gas, oil, or water [employer] threatened to shut off services in your home? No 06/23/2025 Overall Financial Resource Strain (CARDIA) Answe r Date Recorded How hard is it for you to pa y for the very basics like food, housing, medical care, and heating? Not very hard 06/23/2025 PHQ-2 Answer Date Recorded PHQ-2 Total Score 0 06/23/2025 [facility] of Occupat ional Health - Occupational Stress [...] money to get more. Never true 06/23/2025 [facility] IP Transportation Answer D ate Recorded [...] documented as of this encounter Care Teams Clipper Automatic Relationship Specialty Start Date End Date No Pcp, Per Patient PCP - General 06/04/24 documented as of this encounter
--- OUTSIDE RECORDS SUMMARY | 2025-02-07 07:42 | XMS_ITS | Encounter Summary ---
Author Organization [place] [address] Care Team Providers Care Tiler'S Assistant Name Role Phone No Pcp, Per Patient Primary Care Provider Evelyne prabhakar Encounter Details Date Type Department Care Team (Latest Contact Info) Description 02/07/2025 8:42 AM EDT Hospital Encounter [facility] Referral Lab [address] [place] [address] Encounter for general adult medical examination without abnormal findings Social History Tobacco Use Types Packs/Day Years Used Date Smoking Tobacco: Former Cigarettes Q uit: 1991 Passive Smoke Exposure: Past Smokeless Tobacco: Never Alcohol Use Standard Drinks/Week Comments Not Currently 0 (1 standard drink = 0.6 oz pur e alcohol) [facility] Utilities Answer Date Recorded In the past 12 months has e electric, gas, oil, or water company threatened to shut off services in your home? No 06/23/2025 Overall Financial Resource Strain (CARDIA) Answe r Date Recorded How hard is it for you to pa y for the very basics like food, housing, medical care, and heating? Not very hard 06/23/2025 PHQ-2 Answer Date Recorded PHQ-2 Total Score 0 06/23/2025 [facility] [place] of Occupat ional Health - Occupational Stress [...] Never true 06/23/2025 [facility] IP Transportation Answer D ate Recorded [...] Type Priority Associated Diagnoses Orde r Schedule URINALYSIS Lab STAT Encounter for general adult medical examination without abnormal findings ONCE for 1 Occurrences starting 02/07/2025 until 03/14/2025 documented as of this encounter Visit Diagnoses Diagnosis Encounter for general adult medical examination without abnormal findings Routine general medical examination at a health care facility documented in this encounter Additional Health Concerns Infection Onset Date Last Indicated Resolved Time ESBL organism Comment:ESBL urine: 05/23, 06/1205/23/2025 06/12/2025 documented as of this encounter Care Teams Tiler'S Assistant Relationship Specialty Start Date End Date No Pcp, Per Patient PCP - General 06/04/24 documented as of this encounter
--- OUTSIDE RECORDS SUMMARY | 2025-02-07 07:42 | XMS_ITS | Encounter Summary ---
Author Organization [place] [address] Care Team Providers Care Geological Scout Name Role Phone No Pcp, Per Patient Primary Care Provider Evelyne prabhakar Encounter Details Date Type Department Care Team (Latest Contact Info) Description 02/07/2025 8:42 AM EDT Hospital Encounter [facility] Referral Lab 1 [place] [address] Encounter for general adult medical [...] Date Recorded PHQ-2 Total Score 0 06/23/2025 [facility] [place] of Occupat ional Health - Occupational Stress [...] money to get more. Never true 06/23/2025 [facility] IP Transportation Answer D ate Recorded [...] documented as of this encounter Care Teams Geological Scout Relationship Specialty Start Date End Date No Pcp, Per Patient PCP - General 06/04/24 documented as of this encounter
--- OUTSIDE RECORDS SUMMARY | 2025-08-19 14:00 | XMS_ITS | Encounter Summary ---
Author Organization [facility] [place] [address] Care Team Providers Care Lens Blank Gauger Name Role Phone No Pcp, Per Patient Primary Care Provider Evelyne prabhakar Reason for Visit * Reason Comments Peripheral Arterial Disease (PAD) Encounter Details Date Type Department Care Team (Late st Contact Info) Description 08/19/2025 2:00 PM EST Office Visit [facility] [address] [facility] [address] [place] [address] Vargas Wolf MD [address] [place] [address] PAD (peripheral artery disease) (Primary Dx) Social History Tobacco Use Types Packs/Day Years Used Date Smoking Tobacco: Former Cigarettes Q uit: 1991 Passive Smoke Exposure: Past Smokeless Tobacco: Never Alcohol Use Standard Drinks/Week Comments Not Currently 0 (1 standard drink = 0.6 oz pur e alcohol) [facility] Utilities Answer Date Recorded In the past 12 months has [employer], gas, oil, or water [employer] threatened to shut off services in your home? No 06/23/2025 Overall Financial Resource Strain (CARDIA) Answe r Date Recorded How hard is it for you to pa y for the very basics like food, housing, medical care, and heating? Not very hard 06/23/2025 PHQ-2 Answer Date Recorded PHQ-2 Total Score 0 06/23/2025 [facility] of Occupat ional Health - Occupational Stress [...] money to get more. Never true 06/23/2025 [facility] IP Transportation Answer D ate [...] Left AKA 01/30/2025- Lt LE Angiogram with BRAKE REPAIRER RAILROAD of peroneal and tibioperoneal trunk with 1.5 x 80 mm and 2 x 200 balloons. BRAKE REPAIRER RAILROAD of the popliteal artery with 3.5 x 120 mm and 4 x 80 mm balloons. (Vargas Wolf MD) HPI Patients past medical, family and social histories were reviewed and updated. There are no changes except as noted. Past Medical History[1] Patient Active Problem List Diagnosis Date Noted Phantom pain after amputation of lower extremity ([facility]) 06/27/2025 Seizure ([facility]) 06/24/2025 Respiratory arrest ([facility]) 06/24/2025 Atrial fibrillation with slow ventricular response ([facility]) 06/24/2025 Atrial fibrillation with RVR ([facility]) 06/23/2025 Acute cystitis without hematuria 05/28/2025 Metabolic encephalopathy 05/27/2025 Acute respiratory failure with hypoxemia ([facility]) 05/26/2025 Acute pulmonary edema ([facility]) 05/26/2025 Hypotension 05/26/2025 Pancytopenia ([facility]) 05/21/2025 Palliative care by specialist 05/13/2025 Goals of care, counseling/discussion 05/13/2025 Wound dehiscence 05/01/2025 Status post amputation of left foot through metatarsal bone ([facility]) 03/23/2025 Complication of foot amputation stump ([facility]) 03/23/2025 Diabetic foot infection ([facility]) 03/23/2025 S/P transmetatarsal amputation of foot, left ([facility]) 03/23/2025 Gangrene ([facility]) 03/09/2025 Left foot pain 03/07/2025 Gangrene due to arterial insufficiency ([facility]) 03/07/2025 Critical limb ischemia of left lower extremity ([facility]) 01/30/2025 PVD (peripheral vascular disease) 01/29/2025 Chest pain 01/29/2025 Osteomyelitis of great toe ([facility]) 01/23/2025 Abscess of toe of left foot 01/20/2025 Cellulitis and abscess of toe of left foot 01/19/2025 Exostosis of toe 01/19/2025 Atherosclerosis of [place] artery of extremity 01/19/2025 Constipation 01/15/2025 Stage [...] of traumatic brain injury - hemorrhagic cerebral [id number]/2024 Hx of subdural hemorrhage 06/04/2024 Macrocytosis 06/04/2024 Debility 06/04/2024 Hyperkalemia 06/04/2024 Gastroesophageal reflux disease without esophagitis 06/04/2024 Mood disorder 06/04/2024 Closed nondisplaced intertrochanteric fracture of right femur with routine healing 03/20/2024 History of pulmonary embolus (PE) 03/14/2024 Cervical spondylosis without myelopathy 03/14/2024 Irritable bowel syndrome 03/14/2024 DANTE (obstructive sleep apnea) 03/14/2024 Steatosis of liver 03/14/2024 Temporal arteritis ([facility]) 03/14/2024 Fall 01/22/2024 Diverticulosis 01/22/2024 Emphysema lung ([facility]) 01/22/2024 Degenerative arthritis 01/22/2024 Splenic lesion 01/22/2024 Thrombocytopenia 01/22/2024 Focal hemorrhagic contusion of cerebrum ([facility]) 01/21/2024 Primary open angle glaucoma (POAG) of both eyes, severe stage 11/26/2023 Paroxysmal atrial fibrillation (HCC) 04/28/2023 Carotid stenosis, symptomatic w/o infarct, bilateral 04/28/2023 Coronary arteriosclerosis in iroquois artery // Hx of CABG 04/09/2016 Secondary open-angle glaucoma of right eye, severe stage 12/09/2015 Type 2 diabetes mellitus, without long-term current use of insulin ([facility]) 12/09/2015 Mixed hyperlipidemia 09/30/2014 Hypertension associated with diabetes ([facility]) 09/30/2014 Cervical disc disease 09/30/2014 Peripheral neuropathy [...] DAILY nalOXone (NARCAN) 4 mg, Nasal, PRN, [place] the contents of one device (0.1mL) into [...] and time. Imaging: Peripheral Arterial Disease Imaging [place] LOWER EXTREMITY ARTERIAL DUPLEX COMPLETE Result [...] RLE angiogram with possible intervention via L ROLL LINE OPERATOR access. Patient did not tolerate previous angiogram so will plan with anesthesia. Discussed risks (including but not limited to contrast induced nephropathy, access related complications, bleeding, thrombosis and embolization), benefits and alternatives were discussed with the patient. All questions were answered and informed consent was obtained. Regarding L AKA, ok for cook pressure and prosthetic fitting. All questions answered Will [...] IR REVAS FEM POP ART UNILAT W BRAKE REPAIRER RAILROAD 01/30/2025 IR REVAS FEM POP ART UNILAT W BRAKE REPAIRER RAILROAD 01/30/2025 Vargas Wolf MD [facility] IR IR [...] documented as of this encounter Care Teams Lens Blank Gauger Relationship Specialty Start Date End Date No Pcp, Per Patient PCP - General 06/04/24 documented as of this encounter
--- OUTSIDE RECORDS SUMMARY | 2025-08-19 14:00 | XMS_ITS | Encounter Summary ---
Author Organization [place] [address] Care Team Providers Care Machine Fitter Name Role Phone No Pcp, Per Patient Primary Care Provider Evelyne prabhakar Reason for Visit * Reason Comments Peripheral Arterial Disease (PAD) Encounter Details Date Type Department Care Team (Late st Contact Info) Description 08/19/2025 2:00 PM EST Office Visit [facility] Vascular Surg Edg [address] [facility] [address] [place] [address] Vargas Wolf MD [address] [place] [address] PAD (peripheral artery disease) (Primary Dx) Social History Tobacco Use Types Packs/Day Years Used Date Smoking Tobacco: Former Cigarettes Q uit: 1991 Passive Smoke Exposure: Past Smokeless Tobacco: Never Alcohol Use Standard Drinks/Week Comments Not Currently 0 (1 standard drink = 0.6 oz pur e alcohol) [facility] Utilities Answer Date Recorded In the past 12 months has [employer], gas, oil, or water [employer] threatened to shut off services in your home? No 06/23/2025 Overall Financial Resource Strain (CARDIA) Answe r Date Recorded How hard is it for you to pa y for the very basics like food, housing, medical care, and heating? Not very hard 06/23/2025 PHQ-2 Answer Date Recorded PHQ-2 Total Score 0 06/23/2025 [facility] [place] of Occupat ional Health - Occupational Stress [...] true 06/23/2025 [facility] IP Transportation Answer D [...] Left AKA 01/30/2025- Lt LE Angiogram with GIS SCIENTIST of peroneal and tibioperoneal trunk with 1.5 x 80 mm and 2 x 200 balloons. GIS SCIENTIST of the popliteal artery with 3.5 x 120 mm and 4 x 80 mm balloons. (Vargas Wolf MD) HPI Patients past medical, family and social histories were reviewed and updated. There are no changes except as noted. Past Medical History[1] Patient Active Problem List Diagnosis Date Noted Phantom pain after amputation of lower extremity ([facility]) 06/27/2025 Seizure ([facility]) 06/24/2025 Respiratory arrest ([facility]) 06/24/2025 Atrial fibrillation with slow ventricular response ([facility]) 06/24/2025 Atrial fibrillation with RVR ([facility]) 06/23/2025 Acute cystitis without hematuria 05/28/2025 Metabolic encephalopathy 05/27/2025 Acute respiratory failure with hypoxemia ([facility]) 05/26/2025 Acute pulmonary edema ([facility]) 05/26/2025 Hypotension 05/26/2025 Pancytopenia ([facility]) 05/21/2025 Palliative care by specialist 05/13/2025 Goals of care, counseling/discussion 05/13/2025 Wound dehiscence 05/01/2025 Status post amputation of left foot through metatarsal bone ([facility]) 03/23/2025 Complication of foot amputation stump ([facility]) 03/23/2025 Diabetic foot infection ([facility]) 03/23/2025 S/P transmetatarsal amputation of foot, left ([facility]) 03/23/2025 Gangrene ([facility]) 03/09/2025 Left foot pain 03/07/2025 Gangrene due to arterial insufficiency ([facility]) 03/07/2025 Critical limb ischemia of left lower extremity ([facility]) 01/30/2025 PVD (peripheral vascular disease) 01/29/2025 Chest pain 01/29/2025 Osteomyelitis of great toe ([facility]) 01/23/2025 Abscess of toe of left foot 01/20/2025 Cellulitis and abscess of toe of left foot 01/19/2025 Exostosis of toe 01/19/2025 Atherosclerosis of [place]velock artery of extremity 01/19/2025 Constipation 01/15/2025 Stage [...] of traumatic brain injury - hemorrhagic cerebral pnfmvejtc41/19/2024 Hx of subdural hemorrhage 06/04/2024 Macrocytosis 06/04/2024 Debility 06/04/2024 Hyperkalemia 06/04/2024 Gastroesophageal reflux disease without esophagitis 06/04/2024 Mood disorder 06/04/2024 Closed nondisplaced intertrochanteric fracture of right femur with routine healing 03/20/2024 History of pulmonary embolus (PE) 03/14/2024 Cervical spondylosis without myelopathy 03/14/2024 Irritable bowel syndrome 03/14/2024 DANTE (obstructive sleep apnea) 03/14/2024 Steatosis of liver 03/14/2024 Temporal arteritis ([facility]) 03/14/2024 Fall 01/22/2024 Diverticulosis 01/22/2024 Emphysema lung ([facility]) 01/22/2024 Degenerative arthritis 01/22/2024 Splenic lesion 01/22/2024 Thrombocytopenia 01/22/2024 Focal hemorrhagic contusion of cerebrum ([facility]) 01/21/2024 Primary open angle glaucoma (POAG) of both eyes, severe stage 11/26/2023 Paroxysmal atrial fibrillation (HCC) 04/28/2023 Carotid stenosis, symptomatic w/o infarct, bilateral 04/28/2023 Coronary arteriosclerosis in lovelock artery // Hx of CABG 04/09/2016 Secondary open-angle glaucoma of right eye, severe stage 12/09/2015 Type 2 diabetes mellitus, without long-term current use of insulin ([facility]) 12/09/2015 Mixed hyperlipidemia 09/30/2014 Hypertension associated with diabetes ([facility]) 09/30/2014 Cervical disc disease 09/30/2014 Peripheral neuropathy [...] DAILY nalOXone (NARCAN) 4 mg, Nasal, PRN, [place] the contents of one device (0.1mL) into [...] and time. Imaging: Peripheral Arterial Disease Imaging SD US LOWER EXTREMITY ARTERIAL DUPLEX COMPLETE [...] RLE angiogram with possible intervention via L PHYSICIAN PRACTICE MANAGER access. Patient did not tolerate previous angiogram so will plan with anesthesia. Discussed risks (including but not limited to contrast induced nephropathy, access related complications, bleeding, thrombosis and embolization), benefits and alternatives were discussed with the patient. All questions were answered and informed consent was obtained. Regarding L AKA, ok for gas cutter and prosthetic fitting. All questions answered Will [...] IR REVAS FEM POP ART UNILAT W GIS SCIENTIST 01/30/2025 IR REVAS FEM POP ART UNILAT W GIS SCIENTIST 01/30/2025 Vargas Wolf MD EDG IR IR [...] documented as of this encounter Care Teams Machine Fitter Relationship Specialty Start Date End Date No Pcp, Per Patient PCP - General 06/04/24 documented as of this encounter
--- OUTSIDE RECORDS SUMMARY | 2025-08-28 10:06 | XMS_ITS | Encounter Summary ---
Author Organization [place] [address] Care Team Providers Care Independent Insurance Adjuster Name Role Phone No Pcp, Per Patient Primary Care Provider Evelyne prabhakar Reason for Referral * Interventional Radiology (Routine) - Pending Review Specialty Diagnoses / Procedures Referred By Contac t Referred To Contact Radiology Diagnoses PAD (peripheral artery disease) Procedures IR ULTRASOUND GUIDED VASCULAR ACCESS Vargas oWlf MD [address] [place] [address] Phone: tel: fax: Referral ID Status Reason Start Date Expiration Date V isits Requested Visits Authorized [id number] Pending Review 08/28/2025 08/28/2026 1 1 * Interventional Radiology (Routine) - Pending Review Specialty Diagnoses / Procedures Referred By Contac t Referred To Contact Radiology Diagnoses PAD (peripheral artery disease) Procedures IR REVAS FEM POP ART UNILAT W NUISANCE WILDLIFE CONTROL OPERATOR Vargas Wolf MD [address] [place] [id number] Phone: tel: fax: Referral ID Status Reason Start Date Expiration Date V isits Requested Visits Authorized [id number] Pending Review 08/28/2025 08/28/2026 1 1 * Interventional Radiology (Routine) - Pending Review Specialty Diagnoses / Procedures Referred By Contac t Referred To Contact Radiology Diagnoses PAD (peripheral artery disease) Procedures IR REVAS TIB PER ART UNILAT INIT VES W NUISANCE WILDLIFE CONTROL OPERATOR Vargas Wolf MD [address] [place] [address] Phone: tel: fax: Referral ID Status Reason Start Date Expiration Date V isits Requested Visits Authorized [id number] Pending Review 08/28/2025 08/28/2026 1 1 * Interventional Radiology (Routine) - Pending Review Specialty Diagnoses / Procedures Referred By Contac t Referred To Contact Radiology Diagnoses PAD (peripheral artery disease) Critical limb ischemia of left lower extremity (HCC) Procedures IR ABDOMINAL AORTOGRAM SERIALOGRAM Vargas Wolf MD [address] [place] [address] Phone: tel: fax: Referral ID Status Reason Start Date Expiration Date V isits Requested Visits Authorized [id number] Pending Review 08/28/2025 08/28/2026 1 1 * Interventional Radiology (Routine) - Pending Review Specialty Diagnoses / Procedures Referred By Contac t Referred To Contact Radiology Diagnoses PAD (peripheral artery disease) Critical limb ischemia of left lower extremity (HCC) Procedures IR ANGIOGRAM FEMORAL ARTERIO SHIFT Vargas Wolf MD [address] [place] [address] Phone: tel: fax: Referral ID Status Reason Start Date Expiration Date V isits Requested Visits Authorized [id number] Pending Review 08/21/2025 08/21/2026 1 1 Reason for Visit * Interventional Radiology (Routine) - Pending Review Specialty Diagnoses / Procedures Referred By Contac t Referred To Contact Radiology Diagnoses PAD (peripheral artery disease) Critical limb ischemia of left lower extremity (HCC) Procedures IR ANGIOGRAM FEMORAL ARTERIO SHIFT Vargas Wolf MD [address] [place] [address] Phone: tel: fax: Referral ID Status Reason Start Date Expiration Date V isits Requested Visits Authorized [id number] Pending Review 08/21/2025 08/21/2026 1 1 Encounter Details Date Type Department Care Team (Latest Contact Info) Description 08/28/2025 10:06 AM EST - 08/28/2025 11:59 PM [facility] Hospital Encounter EDG IR [facility] [place] [address] Vargas Wolf MD [address] [place] [address] Buzz Hernandez CRNA [address] [place] [address] Abdelrahman Gonsales MD [address] [place] [address] PAD (peripheral artery disease); Critical limb ischemia of left lower extremity (HCC) Discharge Disposition: Home or Self Care Social History Tobacco Use Types Packs/Day Years [...] Recorded PHQ-2 Total Score 0 06/23/2025 [facility] [place] of Occupat ional Health - Occupational Stress [...] [facility] IP Transportation Answer D ate [...] Sign Reading Time Taken Comments Blood Pressure 121/70 08/28/2025 5:49 PM EST Pulse 83 08/28/2025 5:49 PM EST Temperature 36.2 C (97.1 F) 08/28/2025 4:00 PM EST Respiratory Rate 17 08/28/2025 5:49 PM EST Oxygen Saturation 99% 08/28/2025 5:49 PM EST Inhaled Oxygen Concentration - - Weight 49 kg (108 lb) 08/28/2025 10:26 AM EST Height 157.5 cm (5' 2 ) 08/28/2025 10:26 AM EST Body Mass Index 19.75 08/28/2025 10:26 AM EST documented in this encounter Discharge Instructions * Discharge Instructions* Abdelrahman Gonsales MD - 08/28/2025 10:14 AM EST Images from the original note were not included. DISCHARGE INSTRUCTIONS ANGIOGRAM You had a peripheral angiogram. This is a test that allows the physician to look at your arteries. Please follow these instructions as you recover from this procedure. 1. Rest affected leg/arm as much as possible and limit use of stairs for 48 hours. No strenuous activity, such as yard work, house work or prolonged walking for 3 days. Do not lift anything greater than 10 pounds for 7 days. 2. You may resume your pre-procedure diet as tolerated. 3. You may remove dressing in AM and shower. Cleanse site gently with soap and water. Do not rub site. 4. Do not take a tub bath, get in a hot tub, or swim for the next 7 days. 5. There may be a lump, slight discomfort, bruising and redness at the puncture site. These symptoms will improve with time. If these symptoms worsen or continue for 10 days contact your surgeon. 6. If you experience bleeding from the puncture site, immediately lie flat, apply pressure to site.A small amount of blood on the dressing is okay. If bleeding cannot be stopped by applying pressure, have someone call 911. 7. It is important to take your medications as prescribed. If you are taking Metformin/Glucophage, you may start taking this medication in 48 hours. Contact [facility] [place] [place] Vascular Surgery (your surgeons) at [phone] if any of the following symptoms occur: Chills and/or fever over 101 degrees orally Severe pain Increasing pain or swelling in either leg Blood or fluid leaks from puncture site Shortness of breath Puncture site becomes red or swollen You experience loss of color, coldness or numbness in either leg You have chest pain The sedation medication you received today may not totally be eliminated from your body for at least 24 hours. You should not drive a car, operate machinery, make any important decisions or drink alcoholic beverages for the next 24 hours. You make take Tylenol if needed for discomfort, or other pain medications you have already been prescribed. A responsible adult should remain with the patient for the remainder of the day and night for patient's safety and protection. +++++++++++++++++++++++++++++++++++++++++++++++++++++++++++++++++++ [facility] Discharge Instructions - Following Anesthesia We appreciate the opportunity to care for you today! Here are a few reminders as you head home: A responsible adult, 18 years or older must be in attendance until tomorrow morning. Rest quietly today. May resume usual diet as tolerated or as directed by your surgeon. Do not drive or operate any machinery until tomorrow morning or as instructed. Do not make any legal or important decisions for the next 24 hours. Do not drink alcoholic beverages or take sleeping pills for 24 hours unless otherwise directed. If you received a nerve block for post-operative pain control, protect your blocked arm/leg. It is numb. Carefully pad your limb to prevent pressure sores and other injuries. Be careful with applyingcold/warm to the blocked limb. Numbness will alter the sensation of the limb and could damage your skin if you cannot correctly feel the temperature. If you have questions or concerns regarding your anesthesia experience, please call our office at . Get Well Soon! [facility] +++++++++++++++++++++++++++++++++++++++++++++++++++++++++++++++++++ documented in this encounter Medications at Time of Discharge acetaminophen (TYLENOL) 500 mg Oral Tablet Take 1,000 mg by mouth every 6 hours. 03/23/2024 aspirin 81 mg Oral Tablet, Delayed Release (E.C.) 81 mg. 05/19/2024 atorvastatin (LIPITOR) 40 mg Oral Tablet Take 40 mg by mouth nightly. Calcium Carbonate (ANTACID ULTRA STRENGTH) 400 mg calcium (1,000 mg) Oral Tablet, Chewable Take 1,000 mg by mouth daily. 03/23/2024 citalopram (CELEXA) 20 mg Oral Tablet 20 mg. 05/19/2024 cyanocobalamin 1,000 mcg Oral Tablet Take 1,000 mcg by mouth daily. dorzolamide-timol oL (COSOPT) 22.3-6.8 mg/mL Opht Drops Place 1 Drop into both eyes nightly. instill 1 drop in both eyes at bedtime for glaucoma fUROsemide (LASIX) 40 mg Oral TabletIndications :pulmonary edema due to chronic heart failure Take 40 mg by mouth every 12 hours. Indications: fluid in the lungs due to chronic heart failure gabapentin (NEURONTIN) 400 mg Oral Capsule Take by mouth 3 times daily. latanoprost (XALATAN) 0.005 % Opht Drops Apply 1 Drop to eye nightly. 2.5 mL 06/10/2025 lidocaine (ASPERCREME) 4 % Top Adhesive Patch, Medicated Place 1 Patch onto the skin daily. 15 Patch 06/11/2025 metoprolol (LOPRESSOR) 25 mg Oral Tablet Take 25 mg by mouth 2 times daily. nalOXone (NARCAN) 4 mg/actuation Nasl [place], Non-Aerosol 0.1 mL by Nasal route as needed for Opioid Reversal. [place] the contents of one device (0.1mL) into one nostril upon signs of opioid overdose. Call 911. May repeat dose in other nostril if no response within 2-3 minutes. 1 Each 02/04/2025 nortriptyline (PAMELOR) 10 mg Oral Capsule Take 1 Capsule by mouth nightly. 15 Capsule 06/10/2025 oxyCODONE (ROXICODONE) 5 mg Oral Tablet Take 5 mg by mouth every 8 hours as needed. pantoprazole (PROTONIX) 40 mg Oral Tablet, Delayed Release (E.C.) Take 1 Tablet by mouth 2 times daily. 60 Tablet 06/10/2025 polyethylene glycol (GLYCOLAX, MIRALAX) 17 gram Oral Powder in Packet Take 17 g by mouth daily. 01/27/2024 ranolazine (RANEXA) 500 mg Oral Tablet Sustained Release 12 hr Take 1,000 mg by mouth daily. 12/25/2018 documented as of this encounter Discharge Disposition Disposition Code Departure Means Destination Home or Self Care documented in this encounter Procedure Notes * Vargas Wolf MD - 08/28/2025 12:00 PM EST Images from the original note were not included. ANGIOGRAPHY REPORT PATIENT NAME: Miladis Montoya MR #: [id number] : 1940 DATE OF PROCEDURE: 08/28/2025 PREOPERATIVE DIAGNOSES: RLE critical limb ischemia with rest pain POSTOPERATIVE DIAGNOSES: Same PROCEDURE PERFORMED: 1. US guided access of the left common femoral artery 2. Abdominal aortogram. Right lower extremity angiogram. Radiographic supervision and interpretation 3. NUISANCE WILDLIFE CONTROL OPERATOR of SFA with 4 x 120 mm balloon 4. NUISANCE WILDLIFE CONTROL OPERATOR of DAREN with 2 x 60 mm and 2.5 x 120 mm balloons Mynx closure of 6 Fr arteriotomy SURGEON: Vargas Wolf MD ANESTHESIA: General anesthesia FLUOROSCOPY: Dose: 292 mGy, Time: 19.6 min CONTRAST: 67 ml ESTIMATED BLOOD LOSS: 5 mL SPECIMENS: None COMPLICATIONS: None FINDINGS: Access site was patent but significant disease in mid and distal STEAM TURBINE OPERATOR AORTA: Patent infrarenal aorta and bilateral renal arteries without flow- limiting stenosis RIGHT ILIAC ARTERIES: Widely patent common, internal and external iliac arteries. Widely patent CIAstent RIGHT FEMORAL ARTERIES: Patent common femoral artery with mild stenosis from calcific plaque. Patent profunda without flow-limiting stenosis. Patent superficial femoral artery. Proximal significant calcific plaque at ostium but brisk filling distal to it suggesting it is not flow-limiting. Alternative projection suggesting mild-mod stenosis of same lesion. Focal, severe stenosis of mid/distal SFA. RIGHT POPLITEAL ARTERY: patent popliteal artery with mild stenosis RIGHT TIBIAL ARTERIES: Patent anterior tibial artery with multifocal severe stenosis. Patent tibioperoneal trunk with severe stenosis at ostium. Occluded NUISANCE WILDLIFE CONTROL OPERATOR proximally for a few cm with reconstitution distally with multifocal severe stenosis and occlusion at the level of the ankle. Diminutive but patent peroneal artery with severe, multifocal stenosis LEFT ILIAC ARTERIES: Widely patent common and external iliac arteries. Widely patent NILAY stent. Patent internal iliac artery R FOOT: significant microvascular disease INDICATIONS: Miladis Montoya is a 84 y.o. female with PMHx significant for PAD s/p bilateral NILAY stenting s/p L AKA who presented with R foot rest pain. Patient had dependent rubor on exam with non-palpable pedal pulses. R FERNIE of .5. A RLE angiogram with possible intervention was advised. Risks (including bleeding, infection, injury to the [...] femoral head was marked with a hemostat. Ultrasound showed a patent vessel but there was significant disease in the mid and distal STEAM TURBINE OPERATOR, so decision was made to access the proximal STEAM TURBINE OPERATOR. Under ultrasound guidance, the L STEAM TURBINE OPERATOR was accessed using a micropuncture needle. X-ray confirmed appropriate position. Using ultrasound, the puncture site was visualizedand image was retained. The needle was exchanged [...] the contralateral external iliac artery and a right femoral angiogram was performed. See findings above. An angled glide catheter and a wire were then advanced into the SFA. The wire was removed and a selective right lower extremity angiogram was performed. See findings above.Based on the angiographic findings, the decision was made to perform an intervention. A weight based bolus of IV heparin was given and the sheath was exchanged over a guidewire for a long 6 Fr sheath which was advanced to the R STEAM TURBINE OPERATOR. Angiogram was obtained. A wire andcatheter were advanced into the popliteal artery. Angiogram confirmed intraluminal position. NUISANCE WILDLIFE CONTROL OPERATOR ofthe SFA was performed with a 4 x 120 mm balloon. Angiogram confirmed the focal, severe stenosis wassuccessfully treated without residual flow-limiting stenosis. A wire and catheter were advanced into the popliteal artery. Angiogram was obtained. A wire and catheter were used to select the anteriortibial artery. The wire and catheter were advanced into the mid DAREN. Angiogram confirmed intraluminal position. NUISANCE WILDLIFE CONTROL OPERATOR of the proximal DAREN was performed with a 2.5 x 120 mm balloon under fluoro. Angiogram revealed no residual flow-limiting stenosis. The wire and catheter were advanced into the distal DAREN. Angiogram confirmed intraluminal position. NUISANCE WILDLIFE CONTROL OPERATOR of the distal DAREN was performed with a 2 x 60 mmballoon. Angiogram revealed residual stenosis. NUISANCE WILDLIFE CONTROL OPERATOR of the distal DAREN was performed with a 2.5 x 120 mm balloon. Angiogram revealed brisk filling of DAREN, suggesting no residual flow-limiting stenosis.The long 6 Fr sheath was exchanged for a short 6 Fr sheath. 6 Fr Mynx closure device was then successfully deployed. Gentle manual pressure was held to assure hemostasis. Sterile dressing was appliedto the access site. The patient tolerated the procedure well with no immediate complications. I waspresent and scrubbed for the entire procedure. The patient was extubated then safely transferred tothe recovery area in stable condition after the procedure. SUMMARY: Successful treatment of SFA and DAREN RECOMMENDATIONS: Bed rest for 3 hours. Dc home Voice recognition technology was used to complete this note, and it may contain unintended errors despite the bond underwriter's best efforts to proofread it. Please contact me with questions. Signed: Vargas Wolf MD * Vargas Wolf MD - 08/28/2025 12:00 PM EST [facility] ENDOVASCULAR PROCEDURE NOTE Miladis Jan 08/28/25 PRE-OP DIAGNOSIS: RLE critical limb ischemia POST-OP DIAGNOSIS: Same PROCEDURE(S): L STEAM TURBINE OPERATOR ultrasound guided access Aortogram. RLE angigoram NUISANCE WILDLIFE CONTROL OPERATOR of SFA with 4 x 120 mm balloon NUISANCE WILDLIFE CONTROL OPERATOR of DAREN with 2 x 60 mm and 2.5 x 120 mm balloons Mynx closure of 6 Fr arteriotomy RADIATION: 292 mGy FLUORO: 19.6 min CONTRAST: 67 mL SURGEON: Vargas Wolf MD ANESTHESIA: Local, conscious sedation ESTIMATED BLOOD LOSS (mls): 5 mL FINDINGS: Severe R SFA stenosis Severe DAREN stenosis DISPOSITION/POST PROC COURSE: Flat for 2 hours, dc home documented in this encounter Miscellaneous Notes * Plan of Care - Sheela Horta RN - 08/28/2025 12:00 PM EST Problem: Potential for anxiety Description: RELATED TO: PROCEDURE Goal: Patient verbalizes an understanding of planned interventions and/or demonstrates signs of decreased anxiety. Outcome: Progressing Problem: Knowledge deficit Description: RELATED TO: PROCEDURE DISEASE PROCESS Goal: Patient/family will be knowledgeable about procedure and disease processes. Outcome: Progressing Problem: Saftey: Fall Risk Goal: Patient will be free from falls. Outcome: Progressing Problem: Potential for altered respiratory status. Goal: SpO2 readings will remain equal to or above pre-op SpO2. Outcome: Progressing Problem: Potential for bleeding, vascular complications, and/or contrast reaction. Goal: Patient will maintain adequate tissue perfusion and be free of contrast reaction. Outcome: Progressing Problem: Pain Management Description: RELATED TO: PROCEDURE Goal: The patient's stated pain goal will be reached and maintained. Outcome: Progressing Problem: Potential for injury due to altered level of consciousness and/or sensory deficit. Goal: Patient will remain free of injury. Outcome: Progressing Problem: Pain Management Description: Related to: Procedure Goal: The patient's stated pain goal will be reached and maintained. Outcome: Progressing Problem: Potential for altered respiratory status. Description: Related to: Sedation/Anesthesia Goal: Patient will remain free of respiratory complications. Outcome: Progressing Problem: Bleeding Description: Related to: Procedure Goal: Post-op dressing will remain clean and dry. Outcome: Progressing Goal: Patient will have no signs/symptoms of post-procedure bleeding. Outcome: Progressing Goal: Access site will be free of hematoma/bleeding. Outcome: Progressing Problem: Potential for post-op nausea/vomiting Description: Related to procedure Goal: Patient will be free of post-op nausea/vomiting or nausea/vomiting will be controlled. Outcome: Progressing Problem: Potential for altered tissue perfusion-contrast reaction/renal impairment Description: Related to: Contrast administration Goal: Patient will be free of contrast reaction and GFR will remain baseline. Outcome: Progressing Problem: Potential for alteration in skin integrity Goal: Skin integrity is maintained or improved Outcome: Progressing Problem: Alteration in circulation/neurovascular status Goal: Circulation/neurovascular status will be maintained. Outcome: Progressing Problem: Safety: Fall Risk Goal: Patient will be free from falls. Outcome: Progressing Problem: Thermoregulation Goal: Patient's temperature will be greater than 96.8F at discharge. Outcome: Progressing documented in this encounter Plan of Treatment Not on file documented as of this encounter Procedures Procedure Name Priority Date/Time Associated Diagnosis Comments GLUCOSE METER POC Routine 08/28/2025 3:2 1 PM EST IR REVAS TIB PER ART UNILAT INIT VES W NUISANCE WILDLIFE CONTROL OPERATOR Routine 08/28/2025 3:01 PM EST PAD (peripheral artery disease) IR REVAS FEM POP ART UNILAT W NUISANCE WILDLIFE CONTROL OPERATOR Routine 08/28/2025 3:01 PM EST PAD (peripheral artery disease) IR ULTRASOUND GUIDED VASCULAR ACCESS Routine 08/28/2025 3:01 PM EST PAD (peripheral artery disease) IR ANGIOGRAM FEMORAL ARTERIO SHIFT Routine 08/28/2025 3:01 PM EST PAD (peripheral artery disease) Critical limb ischemia of left lower extremity (HCC) IR ABDOMINAL AORTOGRAM SERIALOGRAM Routine 08/28/2025 3:01 PM EST PAD (peripheral artery disease) Critical limb ischemia of left lower extremity (HCC) BASIC METABOLIC PANEL STAT 08/28/2025 10:49 AM EST PAD (peripheral artery disease) Critical limb ischemia of left lower extremity (HCC) documented in this encounter Results * (ABNORMAL) GLUCOSE METER POC (08/28/2025 3:21 PM EST) [facility] Glucose Meter POC 120(H) 70 - 100 mg/dL 08/28/2025 3:23 PM EST [facility] Sample Type Capillary 08/28/2025 3:23 PM EST [facility] Patient Status Non-Critical Patient 08/28/2025 3:23 PM EST [facility] Blood BLOOD SPECIMEN / Unknown 08/28/2025 3:21 PM EST 08/28/2025 3:23 PM EST us Vargas Wolf MD POINT OF CARE TEST ORDERABL ES Final Result [facility] [address] [place], [place] [id number] * IR ULTRASOUND GUIDED VASCULAR ACCESS (08/28/2025 3:01 PM EST) Anatomical Region Laterality Modality Interventional R adiology Narrative 09/28/2025 12:06 PM EST DATE OF PROCEDURE: 08/28/2025 PREOPERATIVE DIAGNOSES: RLE critical limb ischemia with rest pain POSTOPERATIVE DIAGNOSES: Same PROCEDURE PERFORMED: 1. US guided access of the left common femoral artery 2. Abdominal aortogram. Right lower extremity angiogram. Radiographic supervision and interpretation 3. NUISANCE WILDLIFE CONTROL OPERATOR of SFA with 4 x 120 mm balloon 4. NUISANCE WILDLIFE CONTROL OPERATOR of DAREN with 2 x 60 mm and 2.5 x 120 mm balloons Mynx closure of 6 Fr arteriotomy SURGEON: Vargas Wolf MD ANESTHESIA: General anesthesia FLUOROSCOPY: Dose: 292 mGy, Time: 19.6 min CONTRAST: 67 ml ESTIMATED BLOOD LOSS: 5 mL SPECIMENS: None COMPLICATIONS: None FINDINGS: Access site was patent but significant disease in mid and distal STEAM TURBINE OPERATOR AORTA: Patent infrarenal aorta and bilateral renal arteries without flow-limiting stenosis RIGHT ILIAC ARTERIES: Widely patent common, internal and external iliac arteries. Widely patent NILAY stent RIGHT FEMORAL ARTERIES: Patent common femoral artery with mild stenosis from calcific plaque. Patent profunda without flow-limiting stenosis. Patent superficial femoral artery. Proximal significant calcific plaque at ostium but brisk filling distal to it suggesting it is not flow-limiting. Alternative projection suggesting mild-mod stenosis of same lesion. Focal, severe stenosis of mid/distal SFA. RIGHT POPLITEAL ARTERY: patent popliteal artery with mild stenosis RIGHT TIBIAL ARTERIES: Patent anterior tibial artery with multifocal severe stenosis. Patent tibioperoneal trunk with severe stenosis at ostium. Occluded NUISANCE WILDLIFE CONTROL OPERATOR proximally for a few cm with reconstitution distally with multifocal severe stenosis and occlusion at the level of the ankle. Diminutive but patent peroneal artery with severe, multifocal stenosis LEFT ILIAC ARTERIES: Widely patent common and external iliac arteries. Widely patent NILAY stent. Patent internal iliac artery R FOOT: significant microvascular disease INDICATIONS: Miladis Montoya is a 84 y.o. female with PMHx significant for PAD s/p bilateral NILAY stenting s/p L AKA who presented with R foot rest pain. Patient had dependent rubor on exam with non-palpable pedal pulses. R FERNIE of .5. A RLE angiogram with possible intervention was advised. Risks (including bleeding, infection, injury to the [...] femoral head was marked with a hemostat. Ultrasound showed a patent vessel but there was significant disease in the mid and distal STEAM TURBINE OPERATOR, so decision was made to access the proximal STEAM TURBINE OPERATOR. Under ultrasound guidance, the L STEAM TURBINE OPERATOR was accessed using a micropuncture needle. X-ray confirmed appropriate position. Using ultrasound, the puncture site was visualized and image [...] the contralateral external iliac artery and a right femoral angiogram was performed. See findings above. An angled glide catheter and a wire were then advanced into the SFA. The wire was removed and a selective right lower extremity angiogram was performed. See findings above. Based on the angiographic findings, the decision was made to perform an intervention. A weight based bolus of IV heparin was given and the sheath was exchanged over a guidewire for a long 6 Fr sheath which was advanced to the R STEAM TURBINE OPERATOR. Angiogram was obtained. A wire and catheter were advanced into the popliteal artery. Angiogram confirmed intraluminal position. NUISANCE WILDLIFE CONTROL OPERATOR of the SFA was performed with a 4 x 120 mm balloon. Angiogram confirmed the focal, severe stenosis was successfully treated without residual flow-limiting stenosis. A wire and catheter were advanced into the popliteal artery. Angiogram was obtained. A wire and catheter were used to select the anterior tibial artery. The wire and catheter were advanced into the mid DAREN. Angiogram confirmed intraluminal position. NUISANCE WILDLIFE CONTROL OPERATOR of the proximal DAREN was performed with a 2.5 x 120 mm balloon under fluoro. Angiogram revealed no residual flow-limiting stenosis. The wire and catheter were advanced into the distal DAREN. Angiogram confirmed intraluminal position. NUISANCE WILDLIFE CONTROL OPERATOR of the distal DAREN was performed with a 2 x 60 mm balloon. Angiogram revealed residual stenosis. NUISANCE WILDLIFE CONTROL OPERATOR of the distal DAREN was performed with a 2.5 x 120 mm balloon. Angiogram revealed brisk filling of DAREN, suggesting no residual flow-limiting stenosis. The long 6 Fr sheath was exchanged for a short 6 Fr sheath. 6 Fr Mynx closure device was then successfully deployed. Gentle manual pressure was held to assure hemostasis. Sterile dressing was applied to the access site. The patient tolerated the procedure well with no immediate complications. I was present and scrubbed for the entire procedure. The patient was extubated then safely transferred to the recovery area in stable condition after the procedure. SUMMARY: Successful treatment of SFA and DAREN RECOMMENDATIONS: Bed rest for 3 hours. [employer] Voice recognition technology was used to complete this note, and it may contain unintended errors despite the bond underwriter's best efforts to proofread it. Please contact me with questions. TID: [id number] us Vargas Wolf MD IMG IR ORDERABLES Final Res ult * IR REVAS FEM POP ART UNILAT W NUISANCE WILDLIFE CONTROL OPERATOR (08/28/2025 3:01 PM EST) Anatomical Region Laterality Modality Interventional R adiology Narrative 09/28/2025 12:06 PM EST DATE OF PROCEDURE: 08/28/2025 PREOPERATIVE DIAGNOSES: RLE critical limb ischemia with rest pain POSTOPERATIVE DIAGNOSES: Same PROCEDURE PERFORMED: 1. US guided access of the left common femoral artery 2. Abdominal aortogram. Right lower extremity angiogram. Radiographic supervision and interpretation 3. NUISANCE WILDLIFE CONTROL OPERATOR of SFA with 4 x 120 mm balloon 4. NUISANCE WILDLIFE CONTROL OPERATOR of DAREN with 2 x 60 mm and 2.5 x 120 mm balloons Mynx closure of 6 Fr arteriotomy SURGEON: Vargas Wolf MD ANESTHESIA: General anesthesia FLUOROSCOPY: Dose: 292 mGy, Time: 19.6 min CONTRAST: 67 ml ESTIMATED BLOOD LOSS: 5 mL SPECIMENS: None COMPLICATIONS: None FINDINGS: Access site was patent but significant disease in mid and distal STEAM TURBINE OPERATOR AORTA: Patent infrarenal aorta and bilateral renal arteries without flow-limiting stenosis RIGHT ILIAC ARTERIES: Widely patent common, internal and external iliac arteries. Widely patent NILAY stent RIGHT FEMORAL ARTERIES: Patent common femoral artery with mild stenosis from calcific plaque. Patent profunda without flow-limiting stenosis. Patent superficial femoral artery. Proximal significant calcific plaque at ostium but brisk filling distal to it suggesting it is not flow-limiting. Alternative projection suggesting mild-mod stenosis of same lesion. Focal, severe stenosis of mid/distal SFA. RIGHT POPLITEAL ARTERY: patent popliteal artery with mild stenosis RIGHT TIBIAL ARTERIES: Patent anterior tibial artery with multifocal severe stenosis. Patent tibioperoneal trunk with severe stenosis at ostium. Occluded NUISANCE WILDLIFE CONTROL OPERATOR proximally for a few cm with reconstitution distally with multifocal severe stenosis and occlusion at the level of the ankle. Diminutive but patent peroneal artery with severe, multifocal stenosis LEFT ILIAC ARTERIES: Widely patent common and external iliac arteries. Widely patent NILAY stent. Patent internal iliac artery R FOOT: significant microvascular disease INDICATIONS: Miladis Montoya is a 84 y.o. female with PMHx significant for PAD s/p bilateral NILAY stenting s/p L AKA who presented with R foot rest pain. Patient had dependent rubor on exam with non-palpable pedal pulses. R FERNIE of .5. A RLE angiogram with possible intervention was advised. Risks (including bleeding, infection, injury to the [...] femoral head was marked with a hemostat. Ultrasound showed a patent vessel but there was significant disease in the mid and distal STEAM TURBINE OPERATOR, so decision was made to access the proximal STEAM TURBINE OPERATOR. Under ultrasound guidance, the L STEAM TURBINE OPERATOR was accessed using a micropuncture needle. X-ray confirmed appropriate position. Using ultrasound, the puncture site was visualized and image [...] the contralateral external iliac artery and a right femoral angiogram was performed. See findings above. An angled glide catheter and a wire were then advanced into the SFA. The wire was removed and a selective right lower extremity angiogram was performed. See findings above. Based on the angiographic findings, the decision was made to perform an intervention. A weight based bolus of IV heparin was given and the sheath was exchanged over a guidewire for a long 6 Fr sheath which was advanced to the R STEAM TURBINE OPERATOR. Angiogram was obtained. A wire and catheter were advanced into the popliteal artery. Angiogram confirmed intraluminal position. NUISANCE WILDLIFE CONTROL OPERATOR of the SFA was performed with a 4 x 120 mm balloon. Angiogram confirmed the focal, severe stenosis was successfully treated without residual flow-limiting stenosis. A wire and catheter were advanced into the popliteal artery. Angiogram was obtained. A wire and catheter were used to select the anterior tibial artery. The wire and catheter were advanced into the mid DAREN. Angiogram confirmed intraluminal position. NUISANCE WILDLIFE CONTROL OPERATOR of the proximal DAREN was performed with a 2.5 x 120 mm balloon under fluoro. Angiogram revealed no residual flow-limiting stenosis. The wire and catheter were advanced into the distal DAREN. Angiogram confirmed intraluminal position. NUISANCE WILDLIFE CONTROL OPERATOR of the distal DAREN was performed with a 2 x 60 mm balloon. Angiogram revealed residual stenosis. NUISANCE WILDLIFE CONTROL OPERATOR of the distal DAREN was performed with a 2.5 x 120 mm balloon. Angiogram revealed brisk filling of DAREN, suggesting no residual flow-limiting stenosis. The long 6 Fr sheath was exchanged for a short 6 Fr sheath. 6 Fr Mynx closure device was then successfully deployed. Gentle manual pressure was held to assure hemostasis. Sterile dressing was applied to the access site. The patient tolerated the procedure well with no immediate complications. I was present and scrubbed for the entire procedure. The patient was extubated then safely transferred to the recovery area in stable condition after the procedure. SUMMARY: Successful treatment of SFA and DAREN RECOMMENDATIONS: Bed rest for 3 hours. [employer] Voice recognition technology was used to complete this note, and it may contain unintended errors despite the bond underwriter's best efforts to proofread it. Please contact me with questions. TID: [id number] us Vargas Wolf MD IMG IR ORDERABLES Final Res ult * IR REVAS TIB PER ART UNILAT INIT VES W NUISANCE WILDLIFE CONTROL OPERATOR (08/28/2025 3:01 PM EST) Anatomical Region Laterality Modality Interventional R adiology Narrative 09/28/2025 12:06 PM EST DATE OF PROCEDURE: 08/28/2025 PREOPERATIVE DIAGNOSES: RLE critical limb ischemia with rest pain POSTOPERATIVE DIAGNOSES: Same PROCEDURE PERFORMED: 1. US guided access of the left common femoral artery 2. Abdominal aortogram. Right lower extremity angiogram. Radiographic supervision and interpretation 3. NUISANCE WILDLIFE CONTROL OPERATOR of SFA with 4 x 120 mm balloon 4. NUISANCE WILDLIFE CONTROL OPERATOR of DAREN with 2 x 60 mm and 2.5 x 120 mm balloons Mynx closure of 6 Fr arteriotomy SURGEON: Vargas Wolf MD ANESTHESIA: General anesthesia FLUOROSCOPY: Dose: 292 mGy, Time: 19.6 min CONTRAST: 67 ml ESTIMATED BLOOD LOSS: 5 mL SPECIMENS: None COMPLICATIONS: None FINDINGS: Access site was patent but significant disease in mid and distal STEAM TURBINE OPERATOR AORTA: Patent infrarenal aorta and bilateral renal arteries without flow-limiting stenosis RIGHT ILIAC ARTERIES: Widely patent common, internal and external iliac arteries. Widely patent NILAY stent RIGHT FEMORAL ARTERIES: Patent common femoral artery with mild stenosis from calcific plaque. Patent profunda without flow-limiting stenosis. Patent superficial femoral artery. Proximal significant calcific plaque at ostium but brisk filling distal to it suggesting it is not flow-limiting. Alternative projection suggesting mild-mod stenosis of same lesion. Focal, severe stenosis of mid/distal SFA. RIGHT POPLITEAL ARTERY: patent popliteal artery with mild stenosis RIGHT TIBIAL ARTERIES: Patent anterior tibial artery with multifocal severe stenosis. Patent tibioperoneal trunk with severe stenosis at ostium. Occluded NUISANCE WILDLIFE CONTROL OPERATOR proximally for a few cm with reconstitution distally with multifocal severe stenosis and occlusion at the level of the ankle. Diminutive but patent peroneal artery with severe, multifocal stenosis LEFT ILIAC ARTERIES: Widely patent common and external iliac arteries. Widely patent NILAY stent. Patent internal iliac artery R FOOT: significant microvascular disease INDICATIONS: Miladis Montoya is a 84 y.o. female with PMHx significant for PAD s/p bilateral NILAY stenting s/p L AKA who presented with R foot rest pain. Patient had dependent rubor on exam with non-palpable pedal pulses. R FERNIE of .5. A RLE angiogram with possible intervention was advised. Risks (including bleeding, infection, injury to the [...] femoral head was marked with a hemostat. Ultrasound showed a patent vessel but there was significant disease in the mid and distal STEAM TURBINE OPERATOR, so decision was made to access the proximal STEAM TURBINE OPERATOR. Under ultrasound guidance, the L STEAM TURBINE OPERATOR was accessed using a micropuncture needle. X-ray confirmed appropriate position. Using ultrasound, the puncture site was visualized and image [...] the contralateral external iliac artery and a right femoral angiogram was performed. See findings above. An angled glide catheter and a wire were then advanced into the SFA. The wire was removed and a selective right lower extremity angiogram was performed. See findings above. Based on the angiographic findings, the decision was made to perform an intervention. A weight based bolus of IV heparin was given and the sheath was exchanged over a guidewire for a long 6 Fr sheath which was advanced to the R STEAM TURBINE OPERATOR. Angiogram was obtained. A wire and catheter were advanced into the popliteal artery. Angiogram confirmed intraluminal position. NUISANCE WILDLIFE CONTROL OPERATOR of the SFA was performed with a 4 x 120 mm balloon. Angiogram confirmed the focal, severe stenosis was successfully treated without residual flow-limiting stenosis. A wire and catheter were advanced into the popliteal artery. Angiogram was obtained. A wire and catheter were used to select the anterior tibial artery. The wire and catheter were advanced into the mid DAREN. Angiogram confirmed intraluminal position. NUISANCE WILDLIFE CONTROL OPERATOR of the proximal DAREN was performed with a 2.5 x 120 mm balloon under fluoro. Angiogram revealed no residual flow-limiting stenosis. The wire and catheter were advanced into the distal DAREN. Angiogram confirmed intraluminal position. NUISANCE WILDLIFE CONTROL OPERATOR of the distal DAREN was performed with a 2 x 60 mm balloon. Angiogram revealed residual stenosis. NUISANCE WILDLIFE CONTROL OPERATOR of the distal DAREN was performed with a 2.5 x 120 mm balloon. Angiogram revealed brisk filling of DAREN, suggesting no residual flow-limiting stenosis. The long 6 Fr sheath was exchanged for a short 6 Fr sheath. 6 Fr Mynx closure device was then successfully deployed. Gentle manual pressure was held to assure hemostasis. Sterile dressing was applied to the access site. The patient tolerated the procedure well with no immediate complications. I was present and scrubbed for the entire procedure. The patient was extubated then safely transferred to the recovery area in stable condition after the procedure. SUMMARY: Successful treatment of SFA and DAREN RECOMMENDATIONS: Bed rest for 3 hours. [employer] Voice recognition technology was used to complete this note, and it may contain unintended errors despite the bond underwriter's best efforts to proofread it. Please contact me with questions. TID: [id number] us Vargas Wolf MD IMG IR ORDERABLES Final Res ult * IR ABDOMINAL AORTOGRAM SERIALOGRAM (08/28/2025 3:01 PM EST) Anatomical Region Laterality Modality Interventional R adiology Narrative 09/28/2025 12:06 PM EST DATE OF PROCEDURE: 08/28/2025 PREOPERATIVE DIAGNOSES: RLE critical limb ischemia with rest pain POSTOPERATIVE DIAGNOSES: Same PROCEDURE PERFORMED: 1. US guided access of the left common femoral artery 2. Abdominal aortogram. Right lower extremity angiogram. Radiographic supervision and interpretation 3. NUISANCE WILDLIFE CONTROL OPERATOR of SFA with 4 x 120 mm balloon 4. NUISANCE WILDLIFE CONTROL OPERATOR of DAREN with 2 x 60 mm and 2.5 x 120 mm balloons Mynx closure of 6 Fr arteriotomy SURGEON: Vargas Wolf MD ANESTHESIA: General anesthesia FLUOROSCOPY: Dose: 292 mGy, Time: 19.6 min CONTRAST: 67 ml ESTIMATED BLOOD LOSS: 5 mL SPECIMENS: None COMPLICATIONS: None FINDINGS: Access site was patent but significant disease in mid and distal STEAM TURBINE OPERATOR AORTA: Patent infrarenal aorta and bilateral renal arteries without flow-limiting stenosis RIGHT ILIAC ARTERIES: Widely patent common, internal and external iliac arteries. Widely patent NILAY stent RIGHT FEMORAL ARTERIES: Patent common femoral artery with mild stenosis from calcific plaque. Patent profunda without flow-limiting stenosis. Patent superficial femoral artery. Proximal significant calcific plaque at ostium but brisk filling distal to it suggesting it is not flow-limiting. Alternative projection suggesting mild-mod stenosis of same lesion. Focal, severe stenosis of mid/distal SFA. RIGHT POPLITEAL ARTERY: patent popliteal artery with mild stenosis RIGHT TIBIAL ARTERIES: Patent anterior tibial artery with multifocal severe stenosis. Patent tibioperoneal trunk with severe stenosis at ostium. Occluded NUISANCE WILDLIFE CONTROL OPERATOR proximally for a few cm with reconstitution distally with multifocal severe stenosis and occlusion at the level of the ankle. Diminutive but patent peroneal artery with severe, multifocal stenosis LEFT ILIAC ARTERIES: Widely patent common and external iliac arteries. Widely patent NILAY stent. Patent internal iliac artery R FOOT: significant microvascular disease INDICATIONS: Miladis Montoya is a 84 y.o. female with PMHx significant for PAD s/p bilateral NILAY stenting s/p L AKA who presented with R foot rest pain. Patient had dependent rubor on exam with non-palpable pedal pulses. R FERNIE of .5. A RLE angiogram with possible intervention was advised. Risks (including bleeding, infection, injury to the [...] femoral head was marked with a hemostat. Ultrasound showed a patent vessel but there was significant disease in the mid and distal STEAM TURBINE OPERATOR, so decision was made to access the proximal STEAM TURBINE OPERATOR. Under ultrasound guidance, the L STEAM TURBINE OPERATOR was accessed using a micropuncture needle. X-ray confirmed appropriate position. Using ultrasound, the puncture site was visualized and image [...] the contralateral external iliac artery and a right femoral angiogram was performed. See findings above. An angled glide catheter and a wire were then advanced into the SFA. The wire was removed and a selective right lower extremity angiogram was performed. See findings above. Based on the angiographic findings, the decision was made to perform an intervention. A weight based bolus of IV heparin was given and the sheath was exchanged over a guidewire for a long 6 Fr sheath which was advanced to the R STEAM TURBINE OPERATOR. Angiogram was obtained. A wire and catheter were advanced into the popliteal artery. Angiogram confirmed intraluminal position. NUISANCE WILDLIFE CONTROL OPERATOR of the SFA was performed with a 4 x 120 mm balloon. Angiogram confirmed the focal, severe stenosis was successfully treated without residual flow-limiting stenosis. A wire and catheter were advanced into the popliteal artery. Angiogram was obtained. A wire and catheter were used to select the anterior tibial artery. The wire and catheter were advanced into the mid DAREN. Angiogram confirmed intraluminal position. NUISANCE WILDLIFE CONTROL OPERATOR of the proximal DAREN was performed with a 2.5 x 120 mm balloon under fluoro. Angiogram revealed no residual flow-limiting stenosis. The wire and catheter were advanced into the distal DAREN. Angiogram confirmed intraluminal position. NUISANCE WILDLIFE CONTROL OPERATOR of the distal DAREN was performed with a 2 x 60 mm balloon. Angiogram revealed residual stenosis. NUISANCE WILDLIFE CONTROL OPERATOR of the distal DAREN was performed with a 2.5 x 120 mm balloon. Angiogram revealed brisk filling of DAREN, suggesting no residual flow-limiting stenosis. The long 6 Fr sheath was exchanged for a short 6 Fr sheath. 6 Fr Mynx closure device was then successfully deployed. Gentle manual pressure was held to assure hemostasis. Sterile dressing was applied to the access site. The patient tolerated the procedure well with no immediate complications. I was present and scrubbed for the entire procedure. The patient was extubated then safely transferred to the recovery area in stable condition after the procedure. SUMMARY: Successful treatment of SFA and DAREN RECOMMENDATIONS: Bed rest for 3 hours. [employer] Voice recognition technology was used to complete this note, and it may contain unintended errors despite the bond underwriter's best efforts to proofread it. Please contact me with questions. TID: [id number] us Vargas Wolf MD G IR ORDERABLES Final Res ult * IR ANGIOGRAM FEMORAL ARTERIO SHIFT (08/28/2025 3:01 PM EST) Anatomical Region Laterality Modality Interventional R adiology Narrative 09/28/2025 12:06 PM EST DATE OF PROCEDURE: 08/28/2025 PREOPERATIVE DIAGNOSES: RLE critical limb ischemia with rest pain POSTOPERATIVE DIAGNOSES: Same PROCEDURE PERFORMED: 1. US guided access of the left common femoral artery 2. Abdominal aortogram. Right lower extremity angiogram. Radiographic supervision and interpretation 3. NUISANCE WILDLIFE CONTROL OPERATOR of SFA with 4 x 120 mm balloon 4. NUISANCE WILDLIFE CONTROL OPERATOR of DAREN with 2 x 60 mm and 2.5 x 120 mm balloons Mynx closure of 6 Fr arteriotomy SURGEON: Vargas Wolf MD ANESTHESIA: General anesthesia FLUOROSCOPY: Dose: 292 mGy, Time: 19.6 min CONTRAST: 67 ml ESTIMATED BLOOD LOSS: 5 mL SPECIMENS: None COMPLICATIONS: None FINDINGS: Access site was patent but significant disease in mid and distal STEAM TURBINE OPERATOR AORTA: Patent infrarenal aorta and bilateral renal arteries without flow-limiting stenosis RIGHT ILIAC ARTERIES: Widely patent common, internal and external iliac arteries. Widely patent NILAY stent RIGHT FEMORAL ARTERIES: Patent common femoral artery with mild stenosis from calcific plaque. Patent profunda without flow-limiting stenosis. Patent superficial femoral artery. Proximal significant calcific plaque at ostium but brisk filling distal to it suggesting it is not flow-limiting. Alternative projection suggesting mild-mod stenosis of same lesion. Focal, severe stenosis of mid/distal SFA. RIGHT POPLITEAL ARTERY: patent popliteal artery with mild stenosis RIGHT TIBIAL ARTERIES: Patent anterior tibial artery with multifocal severe stenosis. Patent tibioperoneal trunk with severe stenosis at ostium. Occluded NUISANCE WILDLIFE CONTROL OPERATOR proximally for a few cm with reconstitution distally with multifocal severe stenosis and occlusion at the level of the ankle. Diminutive but patent peroneal artery with severe, multifocal stenosis LEFT ILIAC ARTERIES: Widely patent common and external iliac arteries. Widely patent NILAY stent. Patent internal iliac artery R FOOT: significant microvascular disease INDICATIONS: Miladis Montoya is a 84 y.o. female with PMHx significant for PAD s/p bilateral NILAY stenting s/p L AKA who presented with R foot rest pain. Patient had dependent rubor on exam with non-palpable pedal pulses. R FERNIE of .5. A RLE angiogram with possible intervention was advised. Risks (including bleeding, infection, injury to the [...] femoral head was marked with a hemostat. Ultrasound showed a patent vessel but there was significant disease in the mid and distal STEAM TURBINE OPERATOR, so decision was made to access the proximal STEAM TURBINE OPERATOR. Under ultrasound guidance, the L STEAM TURBINE OPERATOR was accessed using a micropuncture needle. X-ray confirmed appropriate position. Using ultrasound, the puncture site was visualized and image [...] the contralateral external iliac artery and a right femoral angiogram was performed. See findings above. An angled glide catheter and a wire were then advanced into the SFA. The wire was removed and a selective right lower extremity angiogram was performed. See findings above. Based on the angiographic findings, the decision was made to perform an intervention. A weight based bolus of IV heparin was given and the sheath was exchanged over a guidewire for a long 6 Fr sheath which was advanced to the R STEAM TURBINE OPERATOR. Angiogram was obtained. A wire and catheter were advanced into the popliteal artery. Angiogram confirmed intraluminal position. NUISANCE WILDLIFE CONTROL OPERATOR of the SFA was performed with a 4 x 120 mm balloon. Angiogram confirmed the focal, severe stenosis was successfully treated without residual flow-limiting stenosis. A wire and catheter were advanced into the popliteal artery. Angiogram was obtained. A wire and catheter were used to select the anterior tibial artery. The wire and catheter were advanced into the mid DAREN. Angiogram confirmed intraluminal position. NUISANCE WILDLIFE CONTROL OPERATOR of the proximal DAREN was performed with a 2.5 x 120 mm balloon under fluoro. Angiogram revealed no residual flow-limiting stenosis. The wire and catheter were advanced into the distal DAREN. Angiogram confirmed intraluminal position. NUISANCE WILDLIFE CONTROL OPERATOR of the distal DAREN was performed with a 2 x 60 mm balloon. Angiogram revealed residual stenosis. NUISANCE WILDLIFE CONTROL OPERATOR of the distal DAREN was performed with a 2.5 x 120 mm balloon. Angiogram revealed brisk filling of DAREN, suggesting no residual flow-limiting stenosis. The long 6 Fr sheath was exchanged for a short 6 Fr sheath. 6 Fr Mynx closure device was then successfully deployed. Gentle manual pressure was held to assure hemostasis. Sterile dressing was applied to the access site. The patient tolerated the procedure well with no immediate complications. I was present and scrubbed for the entire procedure. The patient was extubated then safely transferred to the recovery area in stable condition after the procedure. SUMMARY: Successful treatment of SFA and DAREN RECOMMENDATIONS: Bed rest for 3 hours. [employer] Voice recognition technology was used to complete this note, and it may contain unintended errors despite the bond underwriter's best efforts to proofread it. Please contact me with questions. TID: [id number] us Vargas Wolf MD IMG IR ORDERABLES Final Res ult * (ABNORMAL) BASIC METABOLIC PANEL (08/28/2025 10:49 AM EST) Sodium 139 136 - 145 mmol/L 08/28/2025 11:15 AM EST [facility] Potassium 4.1 3.5 - 5.0 mmol/L 08/28/2025 11:15 AM EST [facility] Chloride 105 98 - 107 mmol/L 08/28/2025 11:15 AM EST [facility] Total CO2 24 22 - 29 mmol/L 08/28/2025 11:15 AM EST [facility] Anion Gap 10 7 - 16 mmol/L 08/28/2025 11:15 AM EST [facility] Calcium 9.1 8.8 - 10.4 mg/dL 08/28/2025 11:15 AM EST [facility] Glucose Lvl 121(H) 70 - 99 mg/dL 08/28/2025 11:15 AM EST [facility] BUN 28(H) 8 - 23 mg/dL 08/28/2025 11:15 AM EST [facility] Creatinine 0.95 0.51 - 1.30 mg/dL 08/28/2025 11:15 AM EST [facility] eGFR (CKD-EPIcr 2020) 58(L) >=60 mL/min/1.7 3 m2 08/28/2025 11:15 AM EST [facility] Comment:Estimated GFR was ca lculated using the CKD-EPIcr (2020) equation refit without race. The equation is recommended by the [employer] - [place] [employer] Task Force. Blood VENOUS BLOOD / Unknown Venipuncture / Unknown 08/28/2025 10:49 AM EST 08/28/2025 10:54 AM EST [facility] Vargas Wolf MD CHEMISTRY ORDERABLES Final Result [facility] [employer] [address] [facility] , [address] [place] [id number] documented in this encounter Visit Diagnoses Diagnosis PAD (peripheral artery disease) Unspecified disorders of arteries and arterioles Critical limb ischemia of left lower extremity (HCC) documented in this encounter Administered Medications Inactive Administered Medications - up to 1 most recent administrations Medication Order MAR Action Action Date Dose Rate Site 0.9 % NaCl infusion Intravenous, at 50 mL/hr, CONTINUOUS, Starting on Tue08/28/25 at 1015, Until Arlene 08/29/25 at 0419 IV Restarted 08/28/2025 12:48 PM EST fentaNYL (SUBLIMAZE) injection 25 mcg 25 mcg, Intravenous, EVERY 5 MIN PRN, Starting on Tue08/28/25 at 1453, Until Tue08/28/25 at 2252, Pain, For initial pain. Maximum dose not to exceed 100 mcg., PACU Given 08/28/2025 3:41 PM EST 25 mcg iopamidoL (ISOVUE-370) 370 mg iodine /mL (76 %) injection (LOW) 67 mL 67 mL, Intra-arterial, ONCE PRN, 1 dose, Starting on Tue08/28/25 at 1502, Until Tue08/28/25 at 1507, Radiography/Imaging, Radiology Procedure, VESICANT , IR (Contrasts) Given 08/28/2025 3:07 PM EST 67 mL documented in this encounter Historical Medications * This list may reflect changes made after this encounter. oxyCODONE (ROXICODONE) 5 mg Oral Tablet Take 5 mg by mouth every 8 hours as needed. metoprolol (LOPRESSOR) 25 mg Oral Tablet Take 25 mg by mouth 2 times daily. gabapentin (NEURONTIN) 400 mg Oral Capsule Take by mouth 3 times daily. fUROsemide (LASIX) 40 mg Oral TabletIndications :pulmonary edema due to chronic heart failure Take 40 mg by mouth every 12 hours. Indications: fluid in the lungs due to chronic heart failure added in this encounter Orders Medications Ordered That Rick ht Not Have Been Administered Count Last Ordered Date First Ordered Date acetaminophen (TYLENOL) tablet 1,000 mg 1 1 10/28/2024 droPERidol (INAPSINE) injection 0.625 mg 1 08/28/2025 HYDROmorphone (DILAUDID) injection 0.25 mg 1 08/28/2025 insulin aspart U-100 (NovoLO G) injection 1-5 Units 1 08/28/2025 ondansetron (ZOFRAN) injection 4 mg 1 08/28 ondansetron (ZOFRAN-ODT) dis integrating tablet 8 mg 1 08/28/2025 oxyCODONE (ROXICODONE) immed iate release tablet 5 mg 1 08/28/2025 Discharge Count Last Ordered Date First Orde red Date DISCHARGE PATIENT 1 08/28/2025 documented in this encounter Additional Health Concerns Infection Onset Date Last Indicated Resolved Time ESBL organism Comment:ESBL urine: 05/23, 06/1205/23/2025 06/12/2025 Assessment Noted Time A fall risk assessment has been complete d for the patient 02/08/2025 11:32 AM EDT documented as of this encounter Care Teams Independent Insurance Adjuster Relationship Specialty Start Date End Date No Pcp, Per Patient PCP - General 06/04/24 documented as of this encounter
--- OUTSIDE RECORDS SUMMARY | 2025-08-28 10:06 | XMS_ITS | Encounter Summary ---
Author Organization [place] [address] Care Team Providers Care Course Instructor Name Role Phone No Pcp, Per Patient Primary Care Provider Evelyne prabhakar Reason for Referral * Interventional Radiology (Routine) - Pending Review Specialty Diagnoses / Procedures Referred By Contac t Referred To Contact Radiology Diagnoses PAD (peripheral artery disease) Procedures IR ULTRASOUND GUIDED VASCULAR ACCESS Vargas Wolf MD [address] [place] [address] Phone: tel: fax: Referral ID Status Reason Start Date Expiration Date V isits Requested Visits Authorized [id number] Pending Review 08/28/2025 08/28/2026 1 1 * Interventional Radiology (Routine) - Pending Review Specialty Diagnoses / Procedures Referred By Contac t Referred To Contact Radiology Diagnoses PAD (peripheral artery disease) Procedures IR REVAS FEM POP ART UNILAT W ANIMAL RIDES MANAGER Vargas Wolf MD [address] [place] [id number] Phone: tel: fax: Referral ID Status Reason Start Date Expiration Date V isits Requested Visits Authorized [id number] Pending Review 08/28/2025 08/28/2026 1 1 * Interventional Radiology (Routine) - Pending Review Specialty Diagnoses / Procedures Referred By Contac t Referred To Contact Radiology Diagnoses PAD (peripheral artery disease) Procedures IR REVAS TIB PER ART UNILAT INIT VES W ANIMAL RIDES MANAGER Vargas Wolf MD [address] [place] [address] Phone: tel: fax: Referral ID Status Reason Start Date Expiration Date V isits Requested Visits Authorized [id number] Pending Review 08/28/2025 08/28/2026 1 1 * Interventional Radiology (Routine) - Pending Review Specialty Diagnoses / Procedures Referred By Contac t Referred To Contact Radiology Diagnoses PAD (peripheral artery disease) Critical limb ischemia of left lower extremity (HCC) Procedures IR ABDOMINAL AORTOGRAM SERIALOGRAM Vargas Wolf MD [address] [place] [address] Phone: tel: fax: Referral ID Status Reason Start Date Expiration Date V isits Requested Visits Authorized [id number] Pending Review 08/28/2025 08/28/2026 1 1 * Interventional Radiology (Routine) - Pending Review Specialty Diagnoses / Procedures Referred By Contac t Referred To Contact Radiology Diagnoses PAD (peripheral artery disease) Critical limb ischemia of left lower extremity (HCC) Procedures IR ANGIOGRAM FEMORAL ARTERIO SHIFT Vargas Wolf MD [address] [place] [address] Phone: tel: fax: Referral ID Status Reason Start Date Expiration Date V isits Requested Visits Authorized [id number] Pending Review 08/21/2025 08/21/2026 1 1 Reason for Visit * Interventional Radiology (Routine) - Pending Review Specialty Diagnoses / Procedures Referred By Contac t Referred To Contact Radiology Diagnoses PAD (peripheral artery disease) Critical limb ischemia of left lower extremity (HCC) Procedures IR ANGIOGRAM FEMORAL ARTERIO SHIFT Vargas Wolf MD [address] [place] [address] Phone: tel: fax: Referral ID Status Reason Start Date Expiration Date V isits Requested Visits Authorized [id number] Pending Review 08/21/2025 08/21/2026 1 1 Encounter Details Date Type Department Care Team (Latest Contact Info) Description 08/28/2025 10:06 AM EST - 08/28/2025 11:59 PM [facility] Hospital Encounter EDG IR [facility] [place] [address] Vargas Wolf MD [address] [place] [address] Buzz Hernandez CRNA [address] [place] [address] Abdelrahman Gonsales MD [address] [place] [address] PAD (peripheral artery disease); Critical limb ischemia of left lower extremity (HCC) Discharge Disposition: Home or Self Care Social History Tobacco Use Types Packs/Day Years Used Date Smoking Tobacco: Former Cigarettes Q uit: 1991 Passive Smoke Exposure: Past Smokeless Tobacco: Never Alcohol Use Standard Drinks/Week Comments Not Currently 0 (1 standard drink = 0.6 oz pur e alcohol) [facility] Utilities Answer Date Recorded In [...] Date Recorded PHQ-2 Total Score 0 06/23/2025 [facility] of Occupat ional Health - Occupational Stress [...] to get more. Never true 06/23/2025 [facility] HRSN [facility] IP Transportation Answer D ate Recorded In [...] taking this medication in 48 hours. Contact [facility] Vascular Surgery (your surgeons) at [phone] if any of the following symptoms occur: [...] night for patient's safety and protection. +++++++++++++++++++++++++++++++++++++++++++++++++++++++++++++++++++ [facility] Discharge Instructions - Following Anesthesia We appreciate [...] our office at . Get Well Soon! [place] [facility] +++++++++++++++++++++++++++++++++++++++++++++++++++++++++++++++++++ documented in this encounter Medications [...] times daily. nalOXone (NARCAN) 4 mg/actuation Nasl [place], Non-Aerosol 0.1 mL by Nasal route as needed for Opioid Reversal. [place] the contents of one device (0.1mL) into [...] REPORT PATIENT NAME: Miladis Montoya MR #: [id number] : 1940 DATE OF PROCEDURE: 08/28/2025 PREOPERATIVE DIAGNOSES: RLE critical limb ischemia with rest pain POSTOPERATIVE DIAGNOSES: Same PROCEDURE PERFORMED: 1. US guided access of the left common femoral artery 2. Abdominal aortogram. Right lower extremity angiogram. Radiographic supervision and interpretation 3. ANIMAL RIDES MANAGER of SFA with 4 x 120 mm balloon 4. ANIMAL RIDES MANAGER of DAREN with 2 x 60 mm and 2.5 x 120 mm balloons Mynx closure of 6 Fr arteriotomy SURGEON: Vargas Wolf MD ANESTHESIA: General anesthesia FLUOROSCOPY: Dose: 292 mGy, Time: 19.6 min CONTRAST: 67 ml ESTIMATED BLOOD LOSS: 5 mL SPECIMENS: None COMPLICATIONS: None FINDINGS: Access site was patent but significant disease in mid and distal CEMENT RUBBER AORTA: Patent infrarenal aorta and bilateral renal [...] trunk with severe stenosis at ostium. Occluded ANIMAL RIDES MANAGER proximally for a few cm with reconstitution [...] significant disease in the mid and distal CEMENT RUBBER, so decision was made to access the proximal CEMENT RUBBER. Under ultrasound guidance, the L CEMENT RUBBER was accessed using a micropuncture needle. X-ray [...] sheath which was advanced to the R CEMENT RUBBER. Angiogram was obtained. A wire andcatheter were advanced into the popliteal artery. Angiogram confirmed intraluminal position. ANIMAL RIDES MANAGER ofthe SFA was performed with a 4 x 120 mm balloon. Angiogram confirmed the focal, severe stenosis wassuccessfully treated without residual flow-limiting stenosis. A wire and catheter were advanced into the popliteal artery. Angiogram was obtained. A wire and catheter were used to select the anteriortibial artery. The wire and catheter were advanced into the mid DAREN. Angiogram confirmed intraluminal position. ANIMAL RIDES MANAGER of the proximal DAREN was performed with a 2.5 x 120 mm balloon under fluoro. Angiogram revealed no residual flow-limiting stenosis. The wire and catheter were advanced into the distal DAREN. Angiogram confirmed intraluminal position. ANIMAL RIDES MANAGER of the distal DAREN was performed with a 2 x 60 mmballoon. Angiogram revealed residual stenosis. ANIMAL RIDES MANAGER of the distal DAREN was performed with [...] it may contain unintended errors despite the commercial lines underwriter's best efforts to proofread it. Please contact me with questions. Signed: Vargas Wolf MD * Vargas Wolf MD - 08/28/2025 12:[address] [facility] ENDOVASCULAR PROCEDURE NOTE Miladis Jan 08/28/25 PRE-OP DIAGNOSIS: RLE critical limb ischemia POST-OP DIAGNOSIS: Same PROCEDURE(S): L CEMENT RUBBER ultrasound guided access Aortogram. RLE angigoram ANIMAL RIDES MANAGER of SFA with 4 x 120 mm balloon ANIMAL RIDES MANAGER of DAREN with 2 x 60 mm [...] TIB PER ART UNILAT INIT VES W ANIMAL RIDES MANAGER Routine 08/28/2025 3:01 PM EST PAD (peripheral artery disease) IR REVAS FEM POP ART UNILAT W ANIMAL RIDES MANAGER Routine 08/28/2025 3:01 PM EST PAD (peripheral [...] GLUCOSE METER POC (08/28/2025 3:21 PM EST) [facility] Glucose Meter POC 120(H) 70 - 100 mg/dL 08/28/2025 3:23 PM EST [facility] Sample Type Capillary 08/28/2025 3:23 PM EST [facility] Patient Status Non-Critical Patient 08/28/2025 3:23 PM EST [facility] Blood BLOOD SPECIMEN / Unknown 08/28/2025 3:21 PM EST 08/28/2025 3:23 PM EST us Vargas Wolf MD POINT OF CARE TEST ORDERABL ES Final Result [facility] [address] [place], [place] [id number] * IR ULTRASOUND GUIDED VASCULAR ACCESS (08/28/2025 3:01 PM EST) Anatomical Region Laterality Modality Interventional R adiology Narrative 09/28/2025 12:06 PM EST DATE OF PROCEDURE: 08/28/2025 PREOPERATIVE DIAGNOSES: RLE critical limb ischemia with rest pain POSTOPERATIVE DIAGNOSES: Same PROCEDURE PERFORMED: 1. US guided access of the left common femoral artery 2. Abdominal aortogram. Right lower extremity angiogram. Radiographic supervision and interpretation 3. ANIMAL RIDES MANAGER of SFA with 4 x 120 mm balloon 4. ANIMAL RIDES MANAGER of DAREN with 2 x 60 mm and 2.5 x 120 mm balloons Mynx closure of 6 Fr arteriotomy SURGEON: Vargas Wolf MD ANESTHESIA: General anesthesia FLUOROSCOPY: Dose: 292 mGy, Time: 19.6 min CONTRAST: 67 ml ESTIMATED BLOOD LOSS: 5 mL SPECIMENS: None COMPLICATIONS: None FINDINGS: Access site was patent but significant disease in mid and distal CEMENT RUBBER AORTA: Patent infrarenal aorta and bilateral renal [...] trunk with severe stenosis at ostium. Occluded ANIMAL RIDES MANAGER proximally for a few cm with reconstitution [...] significant disease in the mid and distal CEMENT RUBBER, so decision was made to access the proximal CEMENT RUBBER. Under ultrasound guidance, the L CEMENT RUBBER was accessed using a micropuncture needle. X-ray [...] sheath which was advanced to the R CEMENT RUBBER. Angiogram was obtained. A wire and catheter were advanced into the popliteal artery. Angiogram confirmed intraluminal position. ANIMAL RIDES MANAGER of the SFA was performed with a [...] the mid DAREN. Angiogram confirmed intraluminal position. ANIMAL RIDES MANAGER of the proximal DAREN was performed with a 2.5 x 120 mm balloon under fluoro. Angiogram revealed no residual flow-limiting stenosis. The wire and catheter were advanced into the distal DAREN. Angiogram confirmed intraluminal position. ANIMAL RIDES MANAGER of the distal DAREN was performed with a 2 x 60 mm balloon. Angiogram revealed residual stenosis. ANIMAL RIDES MANAGER of the distal DAREN was performed with [...] DAREN RECOMMENDATIONS: Bed rest for 3 hours. [employer] Voice recognition technology was used to complete this note, and it may contain unintended errors despite the commercial lines underwriter's best efforts to proofread it. Please contact me with questions. TID: [id number] us Vargas Wolf MD IMG IR ORDERABLES Final Res ult * IR REVAS FEM POP ART UNILAT W ANIMAL RIDES MANAGER (08/28/2025 3:01 PM EST) Anatomical Region Laterality Modality Interventional R adiology Narrative 09/28/2025 12:06 PM EST DATE OF PROCEDURE: 08/28/2025 PREOPERATIVE DIAGNOSES: RLE critical limb ischemia with rest pain POSTOPERATIVE DIAGNOSES: Same PROCEDURE PERFORMED: 1. US guided access of the left common femoral artery 2. Abdominal aortogram. Right lower extremity angiogram. Radiographic supervision and interpretation 3. ANIMAL RIDES MANAGER of SFA with 4 x 120 mm balloon 4. ANIMAL RIDES MANAGER of DAREN with 2 x 60 mm and 2.5 x 120 mm balloons Mynx closure of 6 Fr arteriotomy SURGEON: Vargas Wolf MD ANESTHESIA: General anesthesia FLUOROSCOPY: Dose: 292 mGy, Time: 19.6 min CONTRAST: 67 ml ESTIMATED BLOOD LOSS: 5 mL SPECIMENS: None COMPLICATIONS: None FINDINGS: Access site was patent but significant disease in mid and distal CEMENT RUBBER AORTA: Patent infrarenal aorta and bilateral renal [...] trunk with severe stenosis at ostium. Occluded ANIMAL RIDES MANAGER proximally for a few cm with reconstitution [...] significant disease in the mid and distal CEMENT RUBBER, so decision was made to access the proximal CEMENT RUBBER. Under ultrasound guidance, the L CEMENT RUBBER was accessed using a micropuncture needle. X-ray [...] sheath which was advanced to the R CEMENT RUBBER. Angiogram was obtained. A wire and catheter were advanced into the popliteal artery. Angiogram confirmed intraluminal position. ANIMAL RIDES MANAGER of the SFA was performed with a [...] the mid DAREN. Angiogram confirmed intraluminal position. ANIMAL RIDES MANAGER of the proximal DAREN was performed with a 2.5 x 120 mm balloon under fluoro. Angiogram revealed no residual flow-limiting stenosis. The wire and catheter were advanced into the distal DAREN. Angiogram confirmed intraluminal position. ANIMAL RIDES MANAGER of the distal DAREN was performed with a 2 x 60 mm balloon. Angiogram revealed residual stenosis. ANIMAL RIDES MANAGER of the distal DAREN was performed with [...] DAREN RECOMMENDATIONS: Bed rest for 3 hours. [employer] Voice recognition technology was used to complete this note, and it may contain unintended errors despite the commercial lines underwriter's best efforts to proofread it. Please contact me with questions. TID: [id number] us Vargas Wolf MD IMG IR ORDERABLES Final Res ult * IR REVAS TIB PER ART UNILAT INIT VES W ANIMAL RIDES MANAGER (08/28/2025 3:01 PM EST) Anatomical Region Laterality Modality Interventional R adiology Narrative 09/28/2025 12:06 PM EST DATE OF PROCEDURE: 08/28/2025 PREOPERATIVE DIAGNOSES: RLE critical limb ischemia with rest pain POSTOPERATIVE DIAGNOSES: Same PROCEDURE PERFORMED: 1. US guided access of the left common femoral artery 2. Abdominal aortogram. Right lower extremity angiogram. Radiographic supervision and interpretation 3. ANIMAL RIDES MANAGER of SFA with 4 x 120 mm balloon 4. ANIMAL RIDES MANAGER of DAREN with 2 x 60 mm and 2.5 x 120 mm balloons Mynx closure of 6 Fr arteriotomy SURGEON: Vargas Wolf MD ANESTHESIA: General anesthesia FLUOROSCOPY: Dose: 292 mGy, Time: 19.6 min CONTRAST: 67 ml ESTIMATED BLOOD LOSS: 5 mL SPECIMENS: None COMPLICATIONS: None FINDINGS: Access site was patent but significant disease in mid and distal CEMENT RUBBER AORTA: Patent infrarenal aorta and bilateral renal [...] trunk with severe stenosis at ostium. Occluded ANIMAL RIDES MANAGER proximally for a few cm with reconstitution [...] significant disease in the mid and distal CEMENT RUBBER, so decision was made to access the proximal CEMENT RUBBER. Under ultrasound guidance, the L CEMENT RUBBER was accessed using a micropuncture needle. X-ray [...] sheath which was advanced to the R CEMENT RUBBER. Angiogram was obtained. A wire and catheter were advanced into the popliteal artery. Angiogram confirmed intraluminal position. ANIMAL RIDES MANAGER of the SFA was performed with a [...] the mid DAREN. Angiogram confirmed intraluminal position. ANIMAL RIDES MANAGER of the proximal DAREN was performed with a 2.5 x 120 mm balloon under fluoro. Angiogram revealed no residual flow-limiting stenosis. The wire and catheter were advanced into the distal DAREN. Angiogram confirmed intraluminal position. ANIMAL RIDES MANAGER of the distal DAREN was performed with a 2 x 60 mm balloon. Angiogram revealed residual stenosis. ANIMAL RIDES MANAGER of the distal DAREN was performed with [...] DAREN RECOMMENDATIONS: Bed rest for 3 hours. [employer] Voice recognition technology was used to complete this note, and it may contain unintended errors despite the commercial lines underwriter's best efforts to proofread it. Please contact me with questions. TID: [id number] us Vargas Wolf MD IMG IR ORDERABLES [...] extremity angiogram. Radiographic supervision and interpretation 3. ANIMAL RIDES MANAGER of SFA with 4 x 120 mm balloon 4. ANIMAL RIDES MANAGER of DAREN with 2 x 60 mm and 2.5 x 120 mm balloons Mynx closure of 6 Fr arteriotomy SURGEON: Vargas Wolf MD ANESTHESIA: General anesthesia FLUOROSCOPY: Dose: 292 mGy, Time: 19.6 min CONTRAST: 67 ml ESTIMATED BLOOD LOSS: 5 mL SPECIMENS: None COMPLICATIONS: None FINDINGS: Access site was patent but significant disease in mid and distal CEMENT RUBBER AORTA: Patent infrarenal aorta and bilateral renal [...] trunk with severe stenosis at ostium. Occluded ANIMAL RIDES MANAGER proximally for a few cm with reconstitution [...] significant disease in the mid and distal CEMENT RUBBER, so decision was made to access the proximal CEMENT RUBBER. Under ultrasound guidance, the L CEMENT RUBBER was accessed using a micropuncture needle. X-ray [...] sheath which was advanced to the R CEMENT RUBBER. Angiogram was obtained. A wire and catheter were advanced into the popliteal artery. Angiogram confirmed intraluminal position. ANIMAL RIDES MANAGER of the SFA was performed with a [...] the mid DAREN. Angiogram confirmed intraluminal position. ANIMAL RIDES MANAGER of the proximal DAREN was performed with a 2.5 x 120 mm balloon under fluoro. Angiogram revealed no residual flow-limiting stenosis. The wire and catheter were advanced into the distal DAREN. Angiogram confirmed intraluminal position. ANIMAL RIDES MANAGER of the distal DAREN was performed with a 2 x 60 mm balloon. Angiogram revealed residual stenosis. ANIMAL RIDES MANAGER of the distal DAREN was performed with [...] DAREN RECOMMENDATIONS: Bed rest for 3 hours. [employer] Voice recognition technology was used to complete this note, and it may contain unintended errors despite the commercial lines underwriter's best efforts to proofread it. Please contact me with questions. TID: [id number] us Vargas Wolf MD G IR ORDERABLES [...] extremity angiogram. Radiographic supervision and interpretation 3. ANIMAL RIDES MANAGER of SFA with 4 x 120 mm balloon 4. ANIMAL RIDES MANAGER of DAREN with 2 x 60 mm and 2.5 x 120 mm balloons Mynx closure of 6 Fr arteriotomy SURGEON: Vargas Wolf MD ANESTHESIA: General anesthesia FLUOROSCOPY: Dose: 292 mGy, Time: 19.6 min CONTRAST: 67 ml ESTIMATED BLOOD LOSS: 5 mL SPECIMENS: None COMPLICATIONS: None FINDINGS: Access site was patent but significant disease in mid and distal CEMENT RUBBER AORTA: Patent infrarenal aorta and bilateral renal [...] trunk with severe stenosis at ostium. Occluded ANIMAL RIDES MANAGER proximally for a few cm with reconstitution [...] significant disease in the mid and distal CEMENT RUBBER, so decision was made to access the proximal CEMENT RUBBER. Under ultrasound guidance, the L CEMENT RUBBER was accessed using a micropuncture needle. X-ray [...] sheath which was advanced to the R CEMENT RUBBER. Angiogram was obtained. A wire and catheter were advanced into the popliteal artery. Angiogram confirmed intraluminal position. ANIMAL RIDES MANAGER of the SFA was performed with a [...] the mid DAREN. Angiogram confirmed intraluminal position. ANIMAL RIDES MANAGER of the proximal DAREN was performed with a 2.5 x 120 mm balloon under fluoro. Angiogram revealed no residual flow-limiting stenosis. The wire and catheter were advanced into the distal DAREN. Angiogram confirmed intraluminal position. ANIMAL RIDES MANAGER of the distal DAREN was performed with a 2 x 60 mm balloon. Angiogram revealed residual stenosis. ANIMAL RIDES MANAGER of the distal DAREN was performed with [...] DAREN RECOMMENDATIONS: Bed rest for 3 hours. [employer] Voice recognition technology was used to complete this note, and it may contain unintended errors despite the commercial lines underwriter's best efforts to proofread it. Please contact me with questions. TID: [id number] us Vargas Wolf MD IMG IR ORDERABLES [...] recommended by the [employer] - [place] [employer] of Nephrology Task Force. Blood VENOUS BLOOD / Unknown Venipuncture / Unknown 08/28/2025 10:49 AM EST 08/28/2025 10:54 AM EST us Vargas Wolf MD CHEMISTRY ORDERABLES Final Result [facility] , [address] [place] [phone] documented in this encounter Visit Diagnoses Diagnosis [...] documented as of this encounter Care Teams Course Instructor Relationship Specialty Start Date End Date No Pcp, Per Patient PCP - General 06/04/24 documented as of this encounter
--- OUTSIDE RECORDS SUMMARY | 2025-08-28 12:48 | XMS_ITS | Encounter Summary ---
Author Organization [place] [address] Care Team Providers Care Surface Mount Technology Operator Name Role Phone No Pcp, Per Patient Primary Care Provider Evelyne prabhakar Encounter Details Date Type Department Care Team (Late st Contact Info) Description 08/28/2025 12:48 PM EST Anesthesia Event EDG IR [facility] [place] [address] Ramón Dennison MD [address] [place] [address] [phone] Record, Felicia Thornton APRN [address] [place] [address] [phone] Anesthesia Record Procedure Summary Procedure Name Responsible Anesthesiologist Anesthesia Start Time Anesthesia Stop Time IR ANGIOGRAM FEMORAL ARTERIO SHIFT Ramón Dennison MD 08/28/25 1248 08/28/25 1521 Events Date Time Event Comment 08/28/2025 1139 1230 AN Equip Check 1248 An Start 1248 An Start Data 1248 Immediate Pre Anesthetic Ass es 1248 Pat in Room 1254 An Induction 1257 An Intubation 1301 Anesthesia Ready 1309 Time out 1311 Incision 1440 An Surgeon on Cuff 1455 Oral Airway Placed 1455 An Emergence 1459 An Extubation 1515 an stop data 1515 Patient Out Room 1521 An Stop 1521 Handoff I completed my SBAR handoff to [...] of understanding from the receiving PACU/ICU steam and power supervisor Meds Name Total propofol (DIPRIVAN) injection 80 mg rocuronium (ZEMURON) 10 mg/mL injection 40 mg dexamethasone (DECADRON) injection 4 mg/ mL 4 mg ondansetron (ZOFRAN) injection 4 mg /2 m L 4 mg sugammadex (BRIDION) 100 mg/mL injection 100 mg heparin (porcine) injection 5,000 units/ mL 4,000 Units 0.9 % NaCl infusion 600 mL * Agents Name O2 N2O Air Et Sevoflurane * Blood No blood administrations on file. Lines, Drains, and Airways Type Details Placement Removal Peripheral IV 08/28/25; 1053; 22; 1.75; Nexiva Diffusics; Right, Anterior; Forearm; B MAHENDRA Schuler VAT; 1; Ultrasound guided; 08/28/25; 1750; Therapy completed; No Complications, Dressing applied, Catheter intact 08/28/25 1053 by Radha Schuler RN 08/28/25 1750 by Cely Tenorio, MAHENDRA Airway Device: ETT- Uncuffe d; Size: 7 mm; Placement Date: 08/28/25; Placement Time: 1257 (created via procedure documentation); Removal Date: 08/28/25; Removal Time: 1459 08/28/25 1257 by Buzz Hernandez CRNA 08/28/25 1459 by Maria Del Rosario Pedro CRNA Arterial Sheath 08/28/25; 1320; 5 fr ; No; Dr. Wolf 08/28/25 1320 by Radha Hogan, MAHENDRA 08/28/25 1448 by Radha Hogan, MAHENDRA documented in this encounter Social History Tobacco Use Types Packs/Day Years Used Date Smoking Tobacco: Former Cigarettes Q uit: 1991 Passive Smoke Exposure: Past Smokeless Tobacco: Never Alcohol Use Standard Drinks/Week Comments Not Currently 0 (1 standard drink = 0.6 oz pur e alcohol) [facility] Utilities Answer Date Recorded In the past 12 months has [employer], [employer], or [employer] threatened to shut off services in your home? No 06/23/2025 Overall Financial Resource Strain (CARDIA) Answe r Date Recorded How hard is it for you to pa y for the very basics like food, housing, medical care, and heating? Not very hard 06/23/2025 PHQ-2 Answer Date Recorded PHQ-2 Total Score 0 06/23/2025 [facility] of Occupat ional [facility] - Occupational Stress Questionnaire Answer Date [...] money to get more. Never true 06/23/2025 [facility] IP Transportation Answer D ate Recorded [...] as of this encounter Procedure Notes * Buzz Hernandez CRNA - 08/28/2025 1:02 PM ESTAssociated Order(s): Intraop Airway Placement Intraop Airway Placement: Date/Time: 08/28/2025 12:57 PM Induction type: IV Mask size: Standard adult Pre-Oxygenation: Standard Mask ventilation: Easy mask ventilation Technique: Video laryngoscope Laryngoscope blade: Winn Blade size: 3 Grade view: I Airway type: ETT- uncuffed Topical Anesthetic/Lubricant: None Intubation assist devices: Stylet 14fr Airway location: Oral Device size: 7mm Secured at: 22 cm Secured by: Tape Measured from: Lips Placement verified: Auscultation, End tidal CO2 and Symmetric chest wall motion Condition: Unchanged and Atraumatic Insertion attempts: 1 Title: ELASTIC TAPE INSERTER documented in this encounter OR Notes * Anesthesia Postprocedure Evaluation - Ramón Dennison MD - 08/28/2025 4:12 PM EST Post-Anesthesia Evaluation Note Patient Name: Miladis Montoya Patient Date: August 28, 2025 Post-Anesthesia Evaluation Patient Location: PACU Post op vitals: stable Difficult airway: no Nausea controlled: yes Level of consciousness: awake Post anesthesia pain: adequate analgesia Airway patency: patent Respiratory status: room air Cardiovascular status: stable Hydration status: euvolemic Temperature: Normothermia Perioperative complications: NONE Vitals Value Taken Time BP 142/75 08/28/25 16:00 Resp 11 08/28/25 15:45 SpO2 98 % 08/28/25 15:45 Temp 36.2 ??C (97.1 ??F) 08/28/25 16:00 Pulse 83 08/28/25 15:45 * Anesthesia Preprocedure Evaluation - Abdelrahman Gonsales MD - 08/28/2025 11:34 AM EST Pre-Anesthesia Evaluation Note Patient Name: Miladis Montoya Sex: female Patient : 1940 Age: 84 y.o. Patient Date: August 28, 2025 Procedure(s): IR ANGIOGRAM FEMORAL ARTERIO SHIFT Anesthesia Evaluation Previous anesthesia. History of anesthetic [...] arrhythmia and PACs noted. No atrial fibrillation. [facility] 11/25/2022- 1. 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 iFR of SVG to OM with results 0.98 Recommendations- Continue medical management and risk factor modification (+)Exercise tolerance: poor Hypertension: well controlled Hyperlipidemia CAD/VT: CABG Angina (occasionally gets sharp chest pain, reports on/off for years; negative stress test 01/11/25): CHF: Arrhythmias (PAF): atrial fibrillation Peripheral arterial disease: Carotid Disease and Peripheral Stents Shortness of breath: RIVERA pulmonary hypertension: mild ECG reviewed Physical exam: Rhythm: regular Rate: normal Neuro/Psych Comments: Glaucoma Hx SDH/SAH 01/2024 (+) Cerebrovascular disease (~2021) Psychiatric history (Mood disorder): Peripheral neuropathy Cervical pain GI/Hepatic/Renal Comments: Diverticulosis (+)GERD/PUD: well controlled IBS UTI (H/O) Chronic kidney disease: III Endo/Other Comments: 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 Last clear liquid intake: The patient has not had clear liquids within the last 2 hours. Anesthesia Plan: general Induction: intravenous Monitors: STD PONV Risk Score: 3. Score of 3 or more is High Risk for PONV, combination antiemetic prophylaxis isindicated. Informed consent Anesthetic plan and risks discussed with: patient. Chart Reviewed and patient examined documented in this encounter Plan of Treatment Not on file documented as of this encounter Procedures Procedure Name Priority Date/Time Associated Diagnosis Comments INTRAOP AIRWAY PLACEMENT Routine 08/28/2025 12:57 PM EST documented in this encounter Results * INTRAOP AIRWAY PLACEMENT (08/28/2025 12:57 PM EST) Narrative [facility] - 08/28/2025 12:57 PM EST Buzz Hernandez CRNA 08/28/2025 1:03 PM Intraop Airway Placement: Date/Time: 08/28/2025 12:57 PM Induction type: IV Mask size: Standard adult Pre-Oxygenation: Standard Mask ventilation: Easy mask ventilation Technique: Video laryngoscope Laryngoscope blade: Winn Blade size: 3 Grade view: I Airway type: ETT- uncuffed Topical Anesthetic/Lubricant: None Intubation assist devices: Stylet 14fr Airway location: Oral Device size: 7mm Secured at: 22 cm Secured by: Tape Measured from: Lips Placement verified: Auscultation, End tidal CO2 and Symmetric chest wall motion Condition: Unchanged and Atraumatic Insertion attempts: 1 Title: ELASTIC TAPE INSERTER us Abdelrahman Gonsales MD [place] ANESTHESIA Final Result [facility] [address] [place] [address] documented in this encounter Visit Diagnoses Not on filedocumented in this encounter Administered Medications Inactive Administered Medications - up to 1 most recent administrations Medication Order MAR Action Action Date Dose Rate Site 0.9 % NaCl infusion Intravenous, at 50 mL/hr, CONTINUOUS, Starting on 08/28/25 at 1015, Until Arlene 08/29/25 at 0419 IV Restarted 08/28/2025 12:48 PM EST dexAMETHasone (DECADRON) injection Intravenous, PRN (Anesthesia), Starting on Tue08/28/25 at 1254, Until Tue08/28/25 at 1524, Anesthesia Intra-op Given 08/28/2025 12:54 PM EST 4 mg heparin (porcine) injection Intravenous, PRN (Anesthesia), Starting on Tue08/28/25 at 1338, Until Tue08/28/25 at 1524, Anesthesia Intra-op Given 08/28/2025 1:38 PM EST 4,000 Units ondansetron (ZOFRAN) injection Intravenous, PRN (Anesthesia), Starting on Tue08/28/25 at 1254, Until Tue08/28/25 at 1524, Anesthesia Intra-op Given 08/28/2025 12:54 PM EST 4 mg propofoL (DIPRIVAN) injection Intravenous, PRN (Anesthesia), Starting on Tue08/28/25 at 1254, Until Tue08/28/25 at 1524, Anesthesia Intra-op Given 08/28/2025 12:54 PM EST 80 mg rocuronium injection Intravenous, PRN (Anesthesia), Starting on Tue08/28/25 at 1254, Until Tue08/28/25 at 1524, Anesthesia Intra-op Given 08/28/2025 12:54 PM EST 40 mg sugammadex (BRIDION) injection Intravenous, PRN (Anesthesia), Starting on Tue08/28/25 at 1451, Until Tue08/28/25 at 1524, Anesthesia Intra-op Given 08/28/2025 2:51 PM EST 100 mg documented in this encounter Additional Health Concerns Infection Onset Date Last Indicated Resolved Time ESBL organism Comment:ESBL urine: 05/23, 06/1205/23/2025 06/12/2025 Assessment Noted Time A fall risk assessment has been complete d for the patient 02/08/2025 11:32 AM EDT documented as of this encounter Care Teams Surface Mount Technology Operator Relationship Specialty Start Date End Date No Pcp, Per Patient PCP - General 06/04/24 documented as of this encounter
--- OUTSIDE RECORDS SUMMARY | 2025-08-28 12:48 | XMS_ITS | Encounter Summary ---
Author Organization [place] [address] Care Team Providers Care Puller Out Name Role Phone No Pcp, Per Patient Primary Care Provider Evelyne prabhakar Encounter Details Date Type Department Care Team (Late st Contact Info) Description 08/28/2025 12:48 PM EST Anesthesia Event EDG IR [facility] [place] [address] Ramón Dennison MD [address] [place] [address] [phone] Record, Felicia Thornton APRN [address] [place] [address] [phone] Anesthesia Record Procedure Summary Procedure Name Responsible [...] acknowledgement of understanding from the receiving PACU/ICU forensics team director Meds Name Total propofol (DIPRIVAN) injection 80 [...] 08/28/25; 1320; 5 fr ; No; Dr. Wlof 08/28/25 1320 by Radha Hogan, MAHENDRA 08/28/25 1448 by Radha Hogan, MAHENDRA documented in this encounter Social History Tobacco Use Types Packs/Day Years Used Date Smoking Tobacco: Former Cigarettes Q uit: 1991 Passive Smoke Exposure: Past Smokeless Tobacco: Never Alcohol Use Standard Drinks/Week Comments Not Currently 0 (1 standard drink = 0.6 oz pur e alcohol) [facility] Utilities Answer Date Recorded In the past 12 months has [employer], [employer], or [employer] threatened to shut off services in your home? No 06/23/2025 Overall Financial Resource Strain (CARDIA) Answe r Date Recorded How hard is it for you to pa y for the very basics like food, housing, medical care, and heating? Not very hard 06/23/2025 PHQ-2 Answer Date Recorded PHQ-2 Total Score 0 06/23/2025 [facility] of Occupat ional [facility] - Occupational Stress Questionnaire Answer [...] money to get more. 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 No atrial fibrillation. [facility] 11/25/2022- 1. 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
--- OUTSIDE RECORDS SUMMARY | 2025-09-16 14:00 | XMS_ITS | Encounter Summary ---
Author Organization [facility] Address [address], [address] [place] [address] Care Team Providers Care Clothing Busheler Name Role Phone Jay Howell MD Primary Care Provider [phone] Reason for Referral * Other (Routine) - Open Specialty Diagnoses / Procedures Referred By Luis javed Referred To Contact Diagnoses Nontraumatic complete tear of left rotator cuff Procedures DRAIN/INJECT LARGE JOINT/BURSA Shagufta Cueva PA-C [address] [place] [address] [place] [id number] Phone: tel: fax: Referral ID Status Reason Start Date Expiration Date Visits Re quested Visits Authorized [id number] Open 09/16/2025 09/16/2026 1 1 Reason for Visit * Reason Comments Shoulder Pain FU Lt shoulder Encounter Details Date Type Department Care Team (Late st Contact Info) Description 09/16/2025 2:00 PM EST Office Visit [facility] [place], [address], [place] [id number] Shagufta Cueva PA-C [address] [place] [address] [place] [address] [phone] Nontraumatic complete tear of left rotator cuff (Primary Dx); S/P rotator cuff repair Social History Tobacco Use Types Packs/Day Years Used Date Smoking Tobacco: Never Smokeless Tobacco: Never Comments Unknown Sex and Gender Information Value Date Recorded Sex Assigned at Not on file Legal Sex Female 6:41 PM EDT Gender Identity Not on file Sexual Orientation Not on file documented as of this encounter Progress Notes * Shagufta Cueva PA-C - 09/20/2025 12:02 PM EST Images from the original note were not included. [facility] History and Physical Shoulder Pain Date: 09/20/2025 Name: Miladis Montoya Address: [address] [place] [address] : 1940 Age: 84 y.o. SSN: [id number] Reason for Visit: Shoulder Pain (FU Lt shoulder) HPI: Miladis Montoya is a 84 y.o. female who presents to our office today for follow up of the left shoulder pain. Patient was last seen on 04/25/25 for left shoulder pain and was diagnosed with a large rotator cuff tear and shoulder arthritis. She did get a corticosteroid injection at that time which was quite helpful for her. The patient reports that she is having increased discomfort in the shoulder and is hoping to get another injection. No notes on file Review of Systems: A 14 point review of systems available in the scanned medical record as documented by the patient and reviewed on 09/20/2025. The review is negative with the exception of those things mentioned in theHistory of Present Illness and Past Medical History. Past Medical History: Patient's medications, allergies, past medical, surgical, social and family histories were reviewedand updated as appropriate. Allergies: Allergies Allergen Reactions Nitrofurantoin Hives, Itching, Other (See Comments) and Rash Macrobid Physical Exam: There were no vitals filed for this visit. General: Miladis Montoya is a healthy and well appearing 84 y.o. female who is sitting comfortably inour office in no acute distress. Skin: There are no skin lesions, cellulitis, or extreme edema. The patient has warm and well-perfused Bilateral upper extremities with brisk capillary refill. Eyes: Extra-ocular muscles intact Mouth: Oral mucosa moist. No perioral lesions Pulm: Respirations unlabored and regular. Neuro: Alert and oriented x3 Left shoulder Exam: Inspection: No gross deformities, no signs of infection. Palpation: Tenderness to palpation over the shoulder is diffuse in nature. Active Range of Motion: Forward elevation of 40 with painful arc of motion, abduction of 40, external rotation with elbow at the side 15, internal rotation to the back is back pocket Passive Range of Motion: Deferred Strength: External rotation with resistance with elbow at the side 4/5, internal rotation with resistance with elbow at the side 4/5, Champagne toast testing 3/5, Jobes test 3/5 Special Tests: Positive bear hug. No Matias muscle deformity. Neurovascular: Sensation to light touch is intact, no motor deficits, palpable radial pulses 2+ Additional Examinations: Examination of the contralateral extremity does not show any tenderness, deformity or injury. Rangeof motion is unremarkable. There is no gross instability. There are no rashes, ulcerations or lesions. Strength and tone are normal. Radiographic: MRI L Shoulder 01/10/25 [facility] CONCLUSION: 1. Full-thickness, complete tear of the supraspinatus and infraspinatus tendons, retracted 2.6 cm medially. Moderate fatty atrophy of the supraspinatus and infraspinatus muscle bellies with grade 1 myotendinous junction strains. 2. Severe AC joint and glenohumeral joint osteoarthritis. 3. Severe glenohumeral osteoarthrosis. 4. 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 Question small osteochondral defect. Consider correlation with CT to evaluate for detached but nondisplaced OCD (see pacheco images). Assessment: Miladis Montoya is a 84 y.o. female with left shoulder massive rotator cuff tear and osteoarthritis. High risk for surgery due to recent osteomyelitis history s/p left foot TMA. Impression: Encounter Diagnoses Name Primary? Nontraumatic complete tear of left rotator cuff Yes S/P rotator cuff repair Office Procedures: Orders Placed This Encounter Procedures DRAIN/INJECT LARGE JOINT/BURSA Procedure Note: Risks and benefits of a corticosteroid injection were discussed with Miladis. 80 milligrams of Depo Medrol and 8 CC of 1% lidocaine were injected in the left subacromial space and glenohumeral joint following chlorhexidine prep. She tolerated the procedure well with no immediate adverse sequelae afterthe injection. Plan: We had a thorough discussion with Miladis Montoya regarding her treatment. She has responded quite well to the corticosteroid injection in the past and recommend repeating that today. The treatment at this point is a reverse shoulder arthroplasty, but cannot perform this until her TMA is healed and infection is cleared. She is able to get repeat injections as needed. Miladis Montoya will follow up in 12 weeks and/or as needed. She was in agreement with this plan and all questions were answered to her satisfaction. She was encouraged to call with any questions. 09/20/2025 12:04 PM Shagufta Cueva PA-C Orthopaedic Sports Medicine Physician Medicaid Analyst This dictation was performed with a verbal recognition program ([employer]) and it was checked for errors. It is possible that there are still dictated errors within this office note. If so, please bringany errors to my attention for an addendum. All efforts were made to ensure that this office note is accurate. documented in this encounter Plan of Treatment Upcoming Encounters Date Type Department Care Team (Late st Contact Info) Description 11/21/2025 4:00 PM EST Office Visit [facility], [place] [address] Luis Upton MD [address] [place] [address] F/U L SHOULDER documented as of this encounter Procedures Procedure Name Priority Date/Time Associated Diagnosis Comments DRAIN/INJECT LARGE JOINT/BURSA Routine 09/16/2025 2:29 PM EST Nontraumatic complete tear of left rotator cuff documented in this encounter Visit Diagnoses Diagnosis Nontraumatic complete tear of left rotator cuff- Primary S/P rotator cuff repair Other postprocedural status documented in this encounter Administered Medications Inactive Administered Medications - up to 3 most recent administrations Medication Order MAR Action Action Date Dose Rate Site lidocaine 1 % injection 8 mL 8 mL, Intra-artICUlar, ONCE, 1 dose, On Tue09/16/25 at 1445Indications:Nontraumatic complete tear of left rotator cuff Given 09/16/2025 2:30 PM EST 8 mLs methylPREDNISolone acetate (DEPO-MEDROL) injection 80 mg 80 mg, Intra-artICUlar, ONCE, 1 dose, On 09/16/25 at 1445Indications:Nontraumatic complete tear of left rotator cuff Given 09/16/2025 2:31 PM EST 80 mg documented in this encounter Care Teams Clothing Busheler Relationship Specialty Start Date End Date Jay Howell MD [address] [address] PCP - General Emergency Medicine 03/06/25 documented as of this encounter
--- OUTSIDE RECORDS SUMMARY | 2025-09-16 14:00 | XMS_ITS | Encounter Summary ---
Author Organization [facility] Address [address], [address] [place] [address] Care Team Providers Care Manager Audio Name Role Phone Jay Howell MD Primary Care Provider [phone] Reason for Referral * Other (Routine) - Open Specialty Diagnoses / Procedures Referred By Luis javed Referred To Contact Diagnoses Nontraumatic complete tear of left rotator cuff Procedures DRAIN/INJECT LARGE JOINT/BURSA Shagufta Cueva PA-C [address] [place] [address] [place] [id number] Phone: tel: fax: Referral ID Status Reason Start Date Expiration Date Visits Re quested Visits Authorized [id number] Open 09/16/2025 09/16/2026 1 1 Reason for Visit * Reason Comments Shoulder Pain FU Lt shoulder Encounter Details Date Type Department Care Team (Late st Contact Info) Description 09/16/2025 2:00 PM EST Office Visit [facility] [place], [address], [place] [id number] Shagufta Cueva PA-C [address] [place] [address] [place] [phone] Nontraumatic complete tear of left rotator cuff [...] from the original note were not included. [facility] History and Physical Shoulder Pain Date: 09/20/2025 Name: Miladis Montoya Address: [address] [place] [address] : 1940 Age: 84 y.o. SSN: [id number] [...] Shagufta Cueva PA-C Orthopaedic Sports Medicine Physician Cable Tender This dictation was performed with a verbal recognition program ([email or web address]) and it was checked for errors. It [...] Description 11/21/2025 4:00 PM EST Office Visit [facility], [place] [address] Luis Upton MD [address] [place] [address] F/U L SHOULDER documented as of this [...] mg documented in this encounter Care Teams Manager Audio Relationship Specialty Start Date End Date Jay Howell MD [address] [phone] PCP - General Emergency Medicine 03/06/25 documented as of this encounter
--- OUTSIDE RECORDS SUMMARY | 2025-09-30 17:24 | XMS_ITS | Encounter Summary ---
Author Organization [facility] Address [address] [place], [place] [id number] Care Team Providers Care Computational Mathematician Name Role Phone Jay Howell MD Primary Care Provider [phone] Reason for Referral * Consultation (Urgent) - Authorized Specialty Diagnoses / Procedures Referred By Contact Referred To Contact Vascular Surgery / Cardiothoracic Surgery Diagnoses PVD (peripheral vascular disease) Rusty Jurado MD [address] [place] [phone] Phone: tel: fax: [facility] Cardiothoracic [address], [address] [place] [address] Phone: tel:[phone] fax:[phone] Referral ID Status Reason Start Date Expiration Date Visits Requested Visits Authorized [id number] Authorized Specialty Services Required 04/02/2027 1 1 * Consultation (Routine) - Authorized Specialty Diagnoses / Procedures Referred By Contac t Referred To Contact Diagnoses PVD (peripheral vascular disease) Rusty Jurado MD [address] [place] [phone] Phone: tel: fax: Referral ID Status Reason Start Date Expiration Date V isits Requested Visits Authorized [id number] Authorized 10/01/2025 04/02/2027 1 1 Reason for Visit * Reason Comments Medical Evaluation Encounter Details Date Type Department Care Team ([facility] st Contact Info) Description 09/30/2025 5:24 PM EST - 10/01/2025 12:51 AM EST Emergency [facility] Emergency Department [address] [place] [phone] Jesse May MD [address] [place] [address] Rusty Jurado MD [address] [place] [address] PVD (peripheral vascular disease) (Primary Dx); Right lower lobe pulmonary nodule Discharge Disposition: Home or Self Care Social History Tobacco Use Types Packs/Day Years Used Date Smoking Tobacco: Former Cigarettes 36 1 956 - 1991 Passive Smoke Exposure: Past Smokeless [...] drink first 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) to steady your nerves or to get [...] AM EDT documented as of this encounter Last Filed Vital Signs Vital Sign Reading Time Taken Comments Blood Pressure 167/66 09/30/2025 11:00 PM EST Pulse 97 09/30/2025 11:00 PM EST Temperature 36.9 C (98.5 F) 09/30/2025 4:59 PM EST Respiratory Rate 18 09/30/2025 11:00 PM EST Oxygen Saturation 97% 09/30/2025 11:00 PM EST Inhaled Oxygen Concentration - - Weight 51.2 kg (112 lb 14 oz) 09/30/2025 5:55 PM EST Height 157.5 cm (5' 2 ) 09/30/2025 5:55 PM EST Body Mass Index 20.65 09/30/2025 5:55 PM EST documented in this encounter Functional Status * BMI (Calculated) Answer Date of Assessment Author 20.7 09/30/2025 5:55 PM Michael Bob RN * Percent Excess Weight Loss Answer Date of Assessment Author 0 09/30/2025 5:55 PM Michael Bob RN * Total Weight Change Percent Answer Date of Assessment Author 2222 09/30/2025 5:55 PM Michael Bob RN * Weight Change Since Preop Answer Date of Assessment Author 51.19 09/30/2025 5:55 PM Michael Bob RN * Initial Excess Weight Answer Date of Assessment Author -49.9 09/30/2025 5:55 PM Michael Bob RN * IBW in lbs (Bariatric) Answer Date of Assessment Author 110 09/30/2025 5:55 PM Michael Bob RN * Weight Change Since Last Visit Answer Date of Assessment Author 51.19 09/30/2025 5:55 PM Michael Bob RN * IBW in kg (Bariatric) Answer Date of Assessment Author 49.9 09/30/2025 5:55 PM Michael Bob RN * Percent of IBW Answer Date of Assessment Author 3,619.26 09/30/2025 5:55 PM Michael Bob RN * EBW (kg) Answer Date of Assessment Author 1,804.6 09/30/2025 5:55 PM Michael Bob RN * EBW (lbs) Answer Date of Assessment Author 1,799.14 09/30/2025 5:55 PM Michael Bob RN * Safety Interventions Question Answer Date of Assessment Author Safety Precautions/Falls Reduction fall reduction program maintained 09/30/2025 5:43 PM Noy Bob RN All Alarms none present 09/30/2025 5:43 PM Noy Bob RN * General Emergency Care CPG Interventions Question Answer Date of Assessment Author Coping Interventions questions answered;reassurance provided;care explained to patient/family prior to performing;safe, supportive environment facilitated;family presence facilitated 09/30/2025 5:43 PM Noy Bob RN General Care Management calm environment promoted;positioned for comfort 09/30/2025 5:43 PM Noy Bob RN * Acuity/Destination Question Answer Date of Assessment Author Patient Acuity 2 09/30/2025 5:06 PM Rogerio Mak RN * Weight Change 24 hrs Answer Date of Assessment Author -4.592 09/30/2025 5:55 PM Michael Bob RN * Vital Signs Question Answer Date of Assessment Author BP 167/66 09/30/2025 11:00 PM Tresa Le RN Temp 98.5 09/30/2025 4:59 PM Franko Bernstein RN Temp src Oral 09/30/2025 4:59 PM Franko Bernstein RN Pulse 97 09/30/2025 11:00 PM Tresa Le RN Resp 18 09/30/2025 11:00 PM Tresa Le RN BP Method Automatic 09/30/2025 8:42 PM Jesus Huff CNA MAP (mmHg) 103 09/30/2025 11:00 PM Tresa Le RN * Oxygen Therapy Question Answer Date of Assessment Author SpO2 97 09/30/2025 11:00 PM Tresa Le RN Patient Activity During SpO2 Measurement At rest 09/30/2025 8:42 PM Jesus Lopez CNA * RUE Neurovascular Assessment Question Answer Date of Assessment Author R Radial Pulse +2 09/30/2025 5:41 PM EST Hal obNoy, RN * LUE Neurovascular Assessment Question Answer Date of Assessment Author L Radial Pulse +2 09/30/2025 5:41 PM EST Hal obNoy, RN * RLE Neurovascular Assessment Question Answer Date of Assessment Author RLE Sensation Full sensation;Pain 09/30/2025 7:[address] Tresa Singh, RN RLE Capillary Refill 3-4 seconds 09/30/2025 7:[address] Tresa Singh, RN RLE Color Dusky 09/30/2025 7:27 PM EST Tresa Singh, RN RLE Temperature/Moisture Cold 09/30/2025 7:27 PM EST Tresa Singh, RN R Femoral Pulse +2 09/30/2025 7:27 PM EST Es esmeTresa, RN R Popliteal Pulse +2 09/30/2025 7:27 PM EST Tresa Singh, RN R Posterior Tibial Pulse Only detectable via Doppler 09/30/2025 7:27 PM EST Tresa Singh, RN R Pedal Pulse Absent 09/30/2025 7:27 PM EST Tresa De La Paz, RN RLE Movement Present 09/30/2025 7:27 PM EST Tresa Singh, RN * LLE Neurovascular Assessment Question Answer Date of Assessment Author L Femoral Pulse +2 09/30/2025 5:41 PM EST Noy Romero L, RN L Popliteal Pulse Unable to assess 09/30/2025 7:27 PM EST Tresa Singh, RN L Posterior Tibial Pulse Unable to assess 09/30/2025 7 :27 PM EST Tresa Singh, RN L Pedal Pulse Unable to assess 09/30/2025 7:27 PM EST Tresa Singh, RN * BSA (Calculated - sq m) Answer Date of Assessment Author 1.5 09/30/2025 5:55 PM EST Michael Gaitan RN * BMI (Calculated) Answer Date of Assessment Author 20.64 09/30/2025 5:55 PM EST Michael Gaitan, RN * Height and Weight Question Answer Date of Assessment Author Height 62 09/30/2025 5:55 PM Noy Bob RN Weight 1806.01 09/30/2025 5:55 PM Noy Bob RN * IBW/kg (Calculated) Male Answer Date of Assessment Author 54.6 09/30/2025 5:55 PM Michael Bob RN * IBW/kg (Calculated) Female Answer Date of Assessment Author 50.1 09/30/2025 5:55 PM Michael Bob RN * PAINAD (Pain Assessment in Advanced Dementia) Question Answer Date of Assessment Author Pain Management Interventions emotional support 09/30/2025 11:32 PM Tresa Chavis RN * Airway Question Answer Date of Assessment Author Airway (WDL) WDL 09/30/2025 5:40 PM Noy Bob RN * Breathing Question Answer Date of Assessment Author Breathing (WD) WDL 09/30/2025 5:40 PM Noy Bruner RN * Circulation Question Answer Date of Assessment Author Circulation (WD) X 09/30/2025 5:40 PM Noy Bob RN Capillary Refill Less than/equal to 2 seconds (All extremities) 09/30/2025 5:40 PM Noy Bob RN * Disability Question Answer Date of Assessment Author Disability (WDL) WDL 09/30/2025 5:40 PM Noy Aguirre RN * Restart Vitals Timer Answer Date of Assessment Author Yes 09/30/2025 11:00 PM Tamy Chavis RN * IBW/kg (Calculated) Answer Date of Assessment Author 50.1 09/30/2025 5:55 PM Michael Bob RN * Calculated C-SSRS Risk Score (Lifetime/Recent) Answer Date of Assessment Author No Risk Indicated 09/30/2025 5:40 PM Noy Bob RN * Annika Coma Scale Question Answer Date of Assessment Author Best Eye Response Spontaneous 09/30/2025 7:29 PM Tresa Chavis RN Best Verbal Response Oriented 09/30/2025 7:29 PM E Tresa Longoria RN Best Motor Response Follows commands 09/30/2025 7:29 P M Tresa Chavis RN Annika Coma Scale Score 15 09/30/2025 7:29 PM Tresa Chavis RN * EASI ?? (Elder Abuse Suspicion Index) Question Answer Date of Assessment Author Have you relied on people fo r any of the following: bathing, dressing, shopping, banking, or meals? 0 09/30/2025 5:43 PM Noy Bob RN Has anyone prevented you fro m getting food, clothes, medication, glasses, hearing aids, or medical care, or from being with people you wanted to be with? 0 09/30/2025 5:43 PM Noy Bob RN Have you been upset beacuse someone talked to you in a way that made you feel shamed or threatened? 0 09/30/2025 5:43 PM Noy Bob RN Has anyone tried to force yo u to sign papers or to use your money against your will? 0 09/30/2025 5:43 PM Noy Bob RN Has anyone made you afraid, touched you in ways that you did not want, or hurt you physically? 0 09/30/2025 5:43 PM Noy Lwory RN Elder abuse may be associate d with findings such as poor eye contact, withdrawn nature, malnourishment, hygiene issues, cuts, bruises, inappropriate clothing, or medication compliance issues. Did you notice any of these today?* 0 09/30/2025 5:43 PM Noy Torres RN EASI Total Score 0 09/30/2025 5:43 PM Noy Bob RN * Pulses Question Answer Date of Assessment Author Pulses L pedal;R pedal;R po sterior tibial;L posterior tibial;R popliteal;L popliteal;L femoral;R femoral 09/30/2025 5:41 PM Noy Bob RN * Learning Assessment Question Answer Date of Assessment Author Education Level High school 09/30/2025 5:44 PM Noy Bruner RN Factors that Impact Ability to Learn None 09/30/2025 5:44 PM Noy Bob RN Cultural Considerations None 09/30/2025 5:44 P M Noy Bob RN Judaism Considerations None 09/30/2025 5:44 PM Noy Bob RN * Abuse Screen Question Answer Date of Assessment Author Are you or have you been thr eatened or abused physically, emotionally, or sexually by a partner, spouse, or family member? No 09/30/2025 5:41 PM Noy Bob RN * KINDER 1 Fall Risk Factor Assessment Question Answer Date of Assessment Author Presented to ED because of fall 0 09/30/2025 5:40 PM Noy Bob RN Age > 70 1 09/30/2025 5:40 PM Noy Bob RN Intoxicated with alcohol or substance confusion 0 09/30/2025 5:40 PM Noy Bob RN Ambulates or transfers with assistive devices or assist 0 09/30/2025 5:40 PM Noy Bob RN Unable to ambulate or transfer 1 09/30/2025 5:40 PM Noy Bob RN Nursing judgement 1 09/30/2025 5:4 0 PM Noy Bob RN KINDER 1 Fall Risk Score 3 025 5:40 PM Noy Bob RN High Fall Risk Interventions for Scores 1 and above Fall risk bundle components in place as defined below;Non-skid socks on patient as appropriate;Call light within reach 09/30/2025 5:40 PM Noy Bob RN * Geriatric Triage Risk Screening Tool (TRST) Question Answer Date of Assessment Author TRST Assessment Total 0 09/30/2025 5:44 PM Noy Bob RN Cognitive impairment 0 09/30/2025 5:[address] Noy Gaitan RN Five or more medications 0 09/30/2025 5:44 PM Noy Bob RN Difficulty walking/ transfer ring, or recent falls 0 09/30/2025 5:44 PM Noy Bob RN ED use in the last 30 days o r hospitalization in previous 90 days 0 09/30/2025 5:44 PM Noy Aguirre RN Lives alone and/ or no caregiver 0 09/30/20 5:44 PM Noy Bob RN ED staff concerns 0 09/30/2025 5:44 PM Noy Bob RN * [place] Suicide Severity Rating Scale Question Answer Date of Assessment Author Is patient awake, alert, and able to answer questions appropriately? Yes 09/30/2025 5:40 PM Noy Bruner RN * Patient Belongings Placed in Locker Question Answer Date of Assessment Author Belongings at Bedside Retained by mya javed and/or family/legal strategic partnership representative who assumes responsibility 09/30/2025 5:44 PM Noy Bob RN * [place] Suicide Severity Rating Scale Question Answer Date of Assessment Author 1. Wish to be (Past 1 Month) No 025 5:40 PM Noy Bob RN 2. Non-Specific Active Suici alberto Thoughts (Past 1 Month) No 09/30/2025 5:40 PM Noy Bob RN 6. Suicidal Behavior (Lifetime) No 5:40 PM Noy Bob RN * Peripheral Vascular Question Answer Date of Assessment Author Peripheral Vascular (WDL) X 09/30/2025 7:27 PM Tresa Chavis RN * Weight in (lb) to have BMI = 25 Answer Date of Assessment Author 136.4 09/30/2025 5:55 PM Michael Bob RN * BMI (Calculated) Answer Date of Assessment Author 20.7 09/30/2025 5:55 PM Michael Bob RN * Percent Excess Weight Loss Answer Date of Assessment Author 0 09/30/2025 5:55 PM Michael Bob RN * Weight Change Since Preop Answer Date of Assessment Author 51.2 09/30/2025 5:55 PM Michael Bob RN * Initial Excess Weight Answer Date of Assessment Author -49.9 09/30/2025 5:55 PM Michael Bob RN * IBW in kg (Bariatric) Answer Date of Assessment Author 49.9 09/30/2025 5:55 PM Michael Bob RN * IBW in lb (Bariatric) Answer Date of Assessment Author 110 09/30/2025 5:55 PM Michael Bob, RN * Weight Change Since Last Visit Answer Date of Assessment Author 51.2 09/30/2025 5:55 PM Michael Bob, RN * Percent of IBW Answer Date of Assessment Author 102.61 09/30/2025 5:55 PM Michael Bob, RN * EBW (kg) Answer Date of Assessment Author 1.29 09/30/2025 5:55 PM Michael Bob, RN * EBW (lb) Answer Date of Assessment Author 2.88 09/30/2025 5:55 PM Michael Bob, RN * Difference in Weight Since Last Visit Answer Date of Assessment Author -4.59 09/30/2025 5:55 PM Michael Bob, RN * Temp (in Celsius) for [place] IV Answer Date of Assessment Author 36.9 09/30/2025 4:59 PM Flor Bernstein, RN * Pain Assessment Question Answer Date of Assessment Author Pain Location Leg 09/30/2025 11:32 PM Tresa Chavis RN Pain Orientation Left 09/30/2025 11:3 2 PM Tresa Chavis RN Pain Descriptors Throbbing 09/30/2025 11:3 2 PM Tresa Chavis RN Pain Frequency Constant/continuous 09/30/2025 8:28 PM Tresa Chavis RN Patient's Stated Pain Goal No pain 09/30/2025 11:32 PM Tresa Chavis RN Pain Type Acute pain 09/30/2025 11:32 PM Tresa Chavis RN Clinical Progression Not changed 09/30/2025 10:31 PM Tresa Chavis RN Pain Score 3 09/30/2025 11:32 PM Tresa Chavis RN Pain Assessment 0-10 (Adult DVPRS/Peds 0-10) 09/30/2025 11:32 PM Tresa Chavis RN * IBW/kg (Calculated) Answer Date of Assessment Author 50.1 09/30/2025 5:55 PM Michael Bob RN * Adult Low Range Vt 6mL/kg Answer Date of Assessment Author 300.6 09/30/2025 5:55 PM Michael Bob, RN * Adult Moderate Range Vt 8mL/kg Answer Date of Assessment Author 400.8 09/30/2025 5:55 PM Michael Bob, RN * Adult High Range Vt 10mL/kg Answer Date of Assessment Author 501 09/30/2025 5:55 PM Michael Bob RN * PVS Additional Assessments Answer Date of Assessment Author RLE 09/30/2025 7:27 PM Oscar Chavis ace, RN * Mini Nutritional Assessment/Screening (Adults 65 and Older) Question Answer Date of Assessment Author A. Has food intake declined over the past 3 months due to loss of appetite, digestive problems, chewing or swallowing difficulties? 2 09/30/2025 5:56 PM Noy Aguirre RN B. Weight loss during the 3 months 3 09/30/2025 5:56 PM Noy Bob RN C. Mobility 2 09/30/2025 5:56 PM Noy Bob RN D. Has suffered psychologica l stress or acute disease in the past 3 months? 2 09/30/2025 5:56 PM Noy Bob RN E. Neuropsychological problems 2 09/30/2025 5:56 PM Noy Bob RN * F1. MNA Body Mass Index (BMI) (Weight in kg)/(Height in m)2 Answer Date of Assessment Author 1 09/30/2025 5:56 PM Michael Bob RN * Mini Nutritional Screening Score Answer Date of Assessment Author 12 09/30/2025 5:56 PM Michael Bob RN * Annika Coma Scale Numeric Answer Date of Assessment Author 15 09/30/2025 7:29 PM Oscar Chavis ace, RN * Neurological Question Answer Date of Assessment Author Level of Consciousness Alert 09/30/2025 7:29 PM Tresa Chavis, RN L Pupil Reaction Brisk 09/30/2025 7:29 PM Tresa Samson RN L Pupil Size (mm) 3 09/30/2025 7:29 PM Tresa Chavis RN R Pupil Reaction Brisk 09/30/2025 7:29 PM Tresa Samson RN R Pupil Size (mm) 3 09/30/2025 7:29 PM Tresa Chavis RN Neuro Pertinent Negatives Alert and orie nted x 4;Speech clear 09/30/2025 7:29 PM Tresa Chavis RN R Pupil Shape Round 09/30/2025 7:29 PM Tresa Le RN L Pupil Shape Round 09/30/2025 7:29 PM Tresa Le RN Neuro ([facility]) WD 09/30/2025 7:29 PM Tresa Chavis RN * Gastrointestinal Question Answer Date of Assessment Author Gastrointestinal Pertinent Negatives Soft/nontender/nondis tended;Denies complaints 09/30/2025 7:30 PM Tresa Chavis RN Gastrointestinal ([facility]) WD 7:30 PM Tresa Chavis RN * Skin Color/Condition Question Answer Date of Assessment Author Skin Comments RLE cool to touch, dusky in color, +pain. skin remains intact. 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, skin remains intact, no errythema or swelling 09/30/2025 7:29 PM Tresa Chavis RN Skin Pertinent Negatives Intact;Warm;Dry 09/30/2025 7:29 PM Tresa Chavis, R N Skin Color/Condition ([facility]) X 09/30/2025 7:29 PM Tresa Chavis R N * Cardiac Question Answer Date of Assessment Author Cardiac Rhythm NSR 09/30/2025 7:29 PM Tresa Salazar RN Skin Color Appropriate for ethnicity 09/30/2025 7:29 PM Tresa Chavis RN Cardiac Pertinent Negatives Heart rate regular 09/30/2025 7:29 PM Tresa Chavis, R N Cardiac ([facility]) WDL 09/30/2025 7:29 PM Tresa Le RN * Respiratory Question Answer Date of Assessment Author Respiratory Pertinent Negatives Lungs clear to auscultation;Respir ations regular/unlabored;N o cough 09/30/2025 7:29 PM Tresa Chavis RN Respiratory (WDL) WDL 09/30/2025 7:29 PM Tresa Chavis RN * Musculoskeletal Question Answer Date of Assessment Author RLE Pain with movement;Weakness;Sen sation intact 09/30/2025 7:28 PM Tresa Chavis RN Musculoskeletal (WDL) X 09/30/2025 7:28 PM Tresa Chavis RN * Vitals Timer Question Answer Date of Assessment Author Update Vitals Alert Interval 240 09/30/2025 8 :42 PM Jesus Lopez CNA Restart Vitals Timer Yes 09/30/2025 4:59 PM E Franko Cohn RN Restart Vitals Timer Yes 09/30/2025 8:42 PM E Jesus Pastrana CNA * Hourly Rounding Question Answer Date of Assessment Author Activity Assistance One person assist 09/30/2025 11:32 PM Tresa Chavis RN Repositioned Turns self 09/30/2025 11:32 PM Tresa Chavis RN Head of Bed Elevated HOB 30 09/30/2025 11:32 PM Tresa Chavis RN Toileting Offered and refused 09/30/2025 1 1:32 PM Tresa Chavis RN Call Light Oriented to call light;Call light present and within reach 09/30/2025 11:32 PM Tresa Chavis RN Rest/ Sleep No problem identified;Resting 09/30/2025 11:32 PM Tresa Chavis RN Rest/ Sleep Enhancement Care clustered t o minimize awakenings 09/30/2025 11:32 PM Tresa Chavis RN Completed Hourly Rounding Yes 09/30/2025 11:32 PM Tresa Chavis RN Plan of Care Reviewed With Patient 09/30/2025 11:32 PM Tresa hCavis RN * Safety Interventions Question Answer Date of Assessment Author Safety Precautions/Falls Reduction fall reduction program maintained 09/30/2025 5:43 PM Noy Bob RN All Alarms none present 09/30/2025 5:43 PM Noy Bob RN * General Emergency Care CPG Interventions Question Answer Date of Assessment Author Coping Interventions questions answered;reassurance provided;care explained to patient/family prior to performing;safe, supportive environment facilitated;family presence facilitated 09/30/2025 5:43 PM Noy Bob RN General Care Management calm environment promoted;positioned for comfort 09/30/2025 5:43 PM Noy Bob RN * Vital Signs Question Answer Date of Assessment Author BP 167/66 09/30/2025 11:00 PM Tresa Le RN Temp 98.5 09/30/2025 4:59 PM Franko Bernstein RN Temp src Oral 09/30/2025 4:59 PM Franko Bernstein RN Pulse 97 09/30/2025 11:00 PM Tresa Le RN Resp 18 09/30/2025 11:00 PM Tresa Le RN BP Method Automatic 09/30/2025 8:42 PM Jesus Huff CNA MAP (mmHg) 103 09/30/2025 11:00 PM Tresa Le RN * Oxygen Therapy Question Answer Date of Assessment Author SpO2 97 09/30/2025 11:00 PM Tresa Le RN Patient Activity During SpO2 Measurement At rest 09/30/2025 8:42 PM Jesus Lopez CNA * RUEmiliano Neurovascular Assessment Question Answer Date of Assessment Author R Radial Pulse +2 09/30/2025 5:41 PM Noy Lowry RN * LUE Neurovascular Assessment Question Answer Date of Assessment Author L Radial Pulse +2 09/30/2025 5:41 PM Noy Lowry RN * RLE Neurovascular Assessment Question Answer Date of Assessment Author RLE Sensation Full sensation;Pain 09/30/2025 7:27 PM E Tresa Longoria RN RLEmiliano Capillary Refill 3-4 seconds 09/30/2025 7:27 PM E Tresa Longoria RN RLE Color Dusky 09/30/2025 7:27 PM Tresa Chavis RN RLE Temperature/Moisture Cold 09/30/2025 7:27 PM EST Singh, Tresa E, RN R Femoral Pulse +2 09/30/2025 7:27 PM EST Tresa Miranda, RN R Popliteal Pulse +2 09/30/2025 7:27 PM EST Tresa Singh, RN R Posterior Tibial Pulse Only detectable via Doppler 09/30/2025 7:27 PM EST Tresa Singh, RN R Pedal Pulse Absent 09/30/2025 7:27 PM EST Tresa De La Paz, RN RLE Movement Present 09/30/2025 7:27 PM EST Tresa Singh, RN * LLE Neurovascular Assessment Question Answer Date of Assessment Author L Femoral Pulse +2 09/30/2025 5:41 PM Noy Bruner, RN L Popliteal Pulse Unable to assess 09/30/2025 7:27 PM EST Tresa Singh, RN L Posterior Tibial Pulse Unable to assess 09/30/2025 7 :27 PM Tresa Chavis, RN L Pedal Pulse Unable to assess 09/30/2025 7:27 PM Tresa Chavis, RN * BSA (Calculated - sq m) Answer Date of Assessment Author 1.5 09/30/2025 5:55 PM Michael Bob RN * BMI (Calculated) Answer Date of Assessment Author 20.64 09/30/2025 5:55 PM Michael Bob RN * Height and Weight Question Answer Date of Assessment Author Height 62 09/30/2025 5:55 PM Noy Bob RN Weight 1806.01 09/30/2025 5:55 PM Noy Bob RN * PAINAD (Pain Assessment in Advanced Dementia) Question Answer Date of Assessment Author Pain Management Interventions emotional support 09/30/2025 11:32 PM Tresa Chavis RN * Circulation Question Answer Date of Assessment Author Capillary Refill Less than/equal to 2 seconds (All extremities) 09/30/2025 5:40 PM Noy Bob RN * Restart Vitals Timer Answer Date of Assessment Author Yes 09/30/2025 11:00 PM Tamy Chavis, RN * Calculated C-SSRS Risk Score (Lifetime/Recent) Answer Date of Assessment Author No Risk Indicated 09/30/2025 5:40 PM Noy Bob RN * Annika Coma Scale Question Answer Date of Assessment Author Best Eye Response Spontaneous 09/30/2025 7:29 PM Tresa Chavis RN Best Verbal Response Oriented 09/30/2025 7:29 PM Tresa Anderson RN Best Motor Response Follows commands 09/30/2025 7:29 P M Treas Chavis RN [place] Coma Scale Score 15 09/30/2025 7:29 PM Tresa Chavis RN * Pulses Question Answer Date of Assessment Author Pulses L pedal;R pedal;R po sterior tibial;L posterior tibial;R popliteal;L popliteal;L femoral;R femoral 09/30/2025 5:41 PM Noy Bob RN * Learning Assessment Question Answer Date of Assessment Author Education Level High school 09/30/2025 5:44 PM Noy Bruner RN Factors that Impact Ability to Learn None 09/30/2025 5:44 PM Noy Bob RN Cultural Considerations None 09/30/2025 5:44 P M Noy Bob RN Judaism Considerations None 09/30/2025 5:44 PM Noy Bob RN * SONDRA 1 Fall Risk Factor Assessment Question Answer Date of Assessment Author Presented to ED because of fall 0 09/30/2025 5:40 PM Noy Bob RN Age > 70 1 09/30/2025 5:40 PM Noy Bob RN Intoxicated with alcohol or substance confusion 0 09/30/2025 5:40 PM Noy Bob RN Ambulates or transfers with assistive devices or assist 0 09/30/2025 5:40 PM Noy Bob RN Unable to ambulate or transfer 1 09/30/2025 5:40 PM Noy Bob RN Nursing judgement 1 09/30/2025 5:4 0 PM Noy Bob RN KINDER 1 Fall Risk Score 3 025 5:40 PM Noy Bob RN High Fall Risk Interventions for Scores 1 and above Fall risk bundle components in place as defined below;Non-skid socks on patient as appropriate;Call light within reach 09/30/2025 5:40 PM Noy Bob RN * Patient Belongings Placed in Locker Question Answer Date of Assessment Author Belongings at Bedside Retained by mya javed and/or family/legal strategic partnership representative who assumes responsibility 09/30/2025 5:44 PM Noy Bob RN * [place] Suicide Severity Rating Scale Question Answer Date of Assessment Author 1. Wish to be (Past 1 Month) No 025 5:40 PM Noy Bob RN 2. Non-Specific Active Suici alberto Thoughts (Past 1 Month) No 09/30/2025 5:40 PM Noy Bob RN 6. Suicidal Behavior (Lifetime) No 5:40 PM Noy Bob RN * Weight in (lb) to have BMI = 25 Answer Date of Assessment Author 136.4 09/30/2025 5:55 PM Michael Bob RN * Pain Assessment Question Answer Date of Assessment Author Pain Location Leg 09/30/2025 11:32 PM Tresa Chavis RN Pain Orientation Left 09/30/2025 11:3 2 PM Tresa Chavis RN Pain Descriptors Throbbing 09/30/2025 11:3 2 PM Tresa Chavis RN Pain Frequency Constant/continuous 09/30/2025 8:28 PM Tresa Chvais RN Patient's Stated Pain Goal No pain 09/30/2025 11:32 PM Tresa Chavis RN Pain Type Acute pain 09/30/2025 11:32 PM Tresa Chavis RN Clinical Progression Not changed 09/30/2025 10:31 PM Tresa Chavis RN Pain Score 3 09/30/2025 11:32 PM Tresa Chavis RN Pain Assessment 0-10 (Adult DVPRS/Peds 0-10) 09/30/2025 11:32 PM Tresa Chavis RN * PVS Additional Assessments Answer Date of Assessment Author RLE 09/30/2025 7:27 PM Oscar Chavis ace, RN * Mini Nutritional Assessment/Screening (Adults 65 and Older) Question Answer Date of Assessment Author A. Has food intake declined over the past 3 months due to loss of appetite, digestive problems, chewing or swallowing difficulties? 2 09/30/2025 5:56 PM Noy Aguirre RN B. Weight loss during the 3 months 3 09/30/2025 5:56 PM Noy Bob RN C. Mobility 2 09/30/2025 5:56 PM Noy Bob RN D. Has suffered psychologica l stress or acute disease in the past 3 months? 2 09/30/2025 5:56 PM Noy Bob RN E. Neuropsychological problems 2 09/30/2025 5:56 PM Noy Bob RN * F1. MNA Body Mass Index (BMI) (Weight in kg)/(Height in m)2 Answer Date of Assessment Author 1 09/30/2025 5:56 PM Michael Bob RN * Mini Nutritional Screening Score Answer Date of Assessment Author 12 09/30/2025 5:56 PM Michael Bob RN * Neurological Question Answer Date of Assessment Author Level of Consciousness Alert 09/30/2025 7:29 PM Tresa Chavis, RN L Pupil Reaction Brisk 09/30/2025 7:29 PM EST Tresa Vickers, RN L Pupil Size (mm) 3 09/30/2025 7:29 PM Tresa Chavis, RN R Pupil Reaction Brisk 09/30/2025 7:29 PM EST Tresa Vickers, RN R Pupil Size (mm) 3 09/30/2025 7:29 PM Tresa Chavis, RN R Pupil Shape Round 09/30/2025 7:29 PM EST Tresa De La Paz, RN L Pupil Shape Round 09/30/2025 7:29 PM Tresa Le, RN * Cardiac Question Answer Date of Assessment Author Cardiac Rhythm NSR 09/30/2025 7:29 PM EST Tresa Mendoza RN Skin Color Appropriate for ethnicity 09/30/2025 7:29 PM Tresa Chavis, RN * Musculoskeletal Question Answer Date of Assessment Author RLE Pain with movement;Weakness;Sensation intact 09/30/2025 7:28 PM Tresa Chavis RN * Hourly Rounding Question Answer Date of Assessment Author Activity Assistance One person assist 09/30/2025 11:32 PM Tresa Chavis RN Repositioned Turns self 09/30/2025 11:32 PM Tresa Chavis RN Head of Bed Elevated HOB 30 09/30/2025 11:32 PM Tresa Chavis RN Toileting Offered and refused 09/30/2025 1 1:32 PM Tresa Chavis RN Call Light Oriented to call light;Call light present and within reach 09/30/2025 11:32 PM Tresa Chavis RN Rest/ Sleep No problem identified;Resting 09/30/2025 11:32 PM Tresa Chavis RN Rest/ Sleep Enhancement Care clustered t o minimize awakenings 09/30/2025 11:32 PM Tresa Chavis RN Completed Hourly Rounding Yes 09/30/2025 11:32 PM Tresa Chavis RN Plan of Care Reviewed With Patient 09/30/2025 11:32 PM Tresa Chavis RN documented as of this encounter Mental Status * BMI (Calculated) Answer Entry Date Author 20.7 09/30/2025 5:55 PM Michael Bob RN * Percent Excess Weight Loss Answer Entry Date Author 0 09/30/2025 5:55 PM Michael Bob RN * Total Weight Change Percent Answer Entry Date Author 22209/30/2025 5:55 PM Michael Bob RN * Weight Change Since Preop Answer Entry Date Author 51.19 09/30/2025 5:55 PM Michael Bob RN * Initial Excess Weight Answer Entry Date Author -49.9 09/30/2025 5:55 PM Michael Bob RN * IBW in lbs (Bariatric) Answer Entry Date Author 110 09/30/2025 5:55 PM Michael Bob RN * Weight Change Since Last Visit Answer Entry Date Author 51.19 09/30/2025 5:55 PM Michael Bob RN * IBW in kg (Bariatric) Answer Entry Date Author 49.9 09/30/2025 5:55 PM Michael Bob RN * Percent of IBW Answer Entry Date Author 3,619.26 09/30/2025 5:55 PM Michael Bob RN * EBW (kg) Answer Entry Date Author 1,804.6 09/30/2025 5:55 PM Michael Bob RN * EBW (lbs) Answer Entry Date Author 1,799.14 09/30/2025 5:55 PM Michael Bob RN * Safety Interventions Question Answer Entry Date Author Safety Precautions/Falls Reduction fall reduction program maintained 09/30/2025 5:43 PM Noy Bob RN All Alarms none present 09/30/2025 5:43 PM Noy Bob RN * General Emergency Care CPG Interventions Question Answer Entry Date Author Coping Interventions questions answered;reassurance provided;care explained to patient/family prior to performing;safe, supportive environment facilitated;family presence facilitated 09/30/2025 5:43 PM Noy Bob RN General Care Management calm environment promoted;positioned for comfort 09/30/2025 5:43 PM Noy Bob RN * Acuity/Destination Question Answer Entry Date Author Patient Acuity 2 09/30/2025 5:06 PM Rogerio Mak RN Triage Complete Triage complete 09/30/2025 5:06 PM Rogerio Farmer RN ED Destination Main 09/30/2025 5:06 PM Rogerio Mak RN * Weight Change 24 hrs Answer Entry Date Author -4.592 09/30/2025 5:55 PM Corine Bob RN * Vital Signs Question Answer Entry Date Author BP 167/66 09/30/2025 11:00 PM Tresa Le RN Temp 98.5 09/30/2025 4:59 PM Franko Bernstein RN Temp src Oral 09/30/2025 4:59 PM Franko Bernstein, RN Pulse 97 09/30/2025 11:00 PM Tresa Le RN Resp 18 09/30/2025 11:00 PM EST Tresa De La Paz, RN BP Method Automatic 09/30/2025 8:42 PM EST Jorge lta, Jesus R, SEPARATOR TENDER MAP (mmHg) 103 09/30/2025 11:00 PM EST Tresa De La Paz, RN * Oxygen Therapy Question Answer Entry Date Author SpO2 97 09/30/2025 11:00 PM Tresa Le, RN Patient Activity During SpO2 Measurement At rest 09/30/2025 8:42 PM EST Jesus Cason R, DIONISIO * RUE Neurovascular Assessment Question Answer Entry Date Author R Radial Pulse +2 09/30/2025 5:41 PM EST Noy Lowe, RN * LUE Neurovascular Assessment Question Answer Entry Date Author L Radial Pulse +2 09/30/2025 5:41 PM EST Noy Lowe, RN * RLE Neurovascular Assessment Question Answer Entry Date Author RLE Sensation Full sensation;Pain 09/30/2025 7 :27 PM EST Tresa Singh, RN RLE Capillary Refill 3-4 seconds 09/30/2025 7:27 PM EST Tresa Singh, RN RLE Color Dusky 09/30/2025 7:27 PM EST Tresa Singh, RN RLE Temperature/Moisture Cold 09/30/2025 7:27 PM EST Tresa Singh, RN R Femoral Pulse +2 09/30/2025 7:27 PM EST Tresa Singh, RN R Popliteal Pulse +2 09/30/2025 7:2 7 PM EST Tresa Singh, RN R Posterior Tibial Pulse Only detectable via Doppler 09/30/2025 7:27 PM EST Tresa Singh, RN R Pedal Pulse Absent 09/30/2025 7:27 PM EST Tresa Singh, RN RLE Movement Present 09/30/2025 7:27 PM EST Tresa Singh, RN * LLE Neurovascular Assessment Question Answer Entry Date Author L Femoral Pulse +2 09/30/2025 5:41 PM EST Noy Romero L, RN L Popliteal Pulse Unable to assess 09/30/2025 7:27 PM EST Tresa Singh, RN L Posterior Tibial Pulse Unable to assess 09/30/2025 7 :27 PM Tresa Chavis RN L Pedal Pulse Unable to assess 09/30/2025 7:27 PM Tresa Chavis RN * BSA (Calculated - sq m) Answer Entry Date Author 1.5 09/30/2025 5:55 PM Michael Bob RN * BMI (Calculated) Answer Entry Date Author 20.64 09/30/2025 5:55 PM Michael Bob RN * Height and Weight Question Answer Entry Date Author Height 62 09/30/2025 5:55 PM Noy Bob RN Weight 1806.01 09/30/2025 5:55 PM Noy Bob RN * IBW/kg (Calculated) Male Answer Entry Date Author 54.6 09/30/2025 5:55 PM Micheal Bob RN * IBW/kg (Calculated) Female Answer Entry Date Author 50.1 09/30/2025 5:55 PM Michael Bob RN * PAINAD (Pain Assessment in Advanced Dementia) Question Answer Entry Date Author Pain Management Interventions emotional support 09/30/2025 11:32 PM Tresa Chavis RN * Airway Question Answer Entry Date Author Airway (WDL) WDL 09/30/2025 5:40 PM Noy Bob RN * Breathing Question Answer Entry Date Author Breathing (WDL) WDL 09/30/2025 5:40 PM Noy Bruner RN * Circulation Question Answer Entry Date Author Circulation (WDL) X 09/30/2025 5:40 PM Noy Bob RN Capillary Refill Less than/equal to 2 seconds (All extremities) 09/30/2025 5:40 PM Noy Bob RN * Disability Question Answer Entry Date Author Disability (WDL) WDL 09/30/2025 5:40 PM Noy Aguirre RN * Restart Vitals Timer Answer Entry Date Author Yes 09/30/2025 11:00 PM Tamy Chavis RN * Injection Rate mL/s Answer Entry Date Author 4 09/30/2025 8:15 PM EST Eaton, Ca mron * IBW/kg (Calculated) Answer Entry Date Author 50.1 09/30/2025 5:55 PM Michael Bob RN * Calculated C-SSRS Risk Score (Lifetime/Recent) Answer Entry Date Author No Risk Indicated 09/30/2025 5:40 PM Noy Bob RN * [place] Coma Scale Question Answer Entry Date Author Best Eye Response Spontaneous 09/30/2025 7:29 PM Tresa Chavis RN Best Verbal Response Oriented 09/30/2025 7:29 PM Tresa Anderson RN Best Motor Response Follows commands 09/30/2025 7:29 P M Tresa Chavis RN Annika Coma Scale Score 15 09/30/2025 7:29 PM Tresa Chavis RN * Departure Condition Question Answer Entry Date Author Mobility at Departure Wheelchair 10/01/2025 12:50 AM Tresa Chavis RN Patient Teaching Follow-up care reviewed;Discharge instructions reviewed;Pain management discussed;Medications discussed;Patient verbalized understanding;Caregiver verbalized understanding 10/01/2025 12:50 AM Tresa Chavis RN Departure Mode With family or spouse 10/01/2025 12:50 AM Tresa Chavis RN * Restart Pain Assessment Timer Answer Entry Date Author Yes 09/30/2025 11:32 PM Tamy Chaivs RN * Pulses Question Answer Entry Date Author Pulses L pedal;R pedal;R po sterior tibial;L posterior tibial;R popliteal;L popliteal;L femoral;R femoral 09/30/2025 5:41 PM Noy Bob RN * KINDER 1 Fall Risk Factor Assessment Question Answer Entry Date Author Presented to ED because of fall 0 09/30/2025 5:40 PM Noy Bob RN Age > 70 1 09/30/2025 5:40 PM Noy Bob RN Intoxicated with alcohol or substance confusion 0 09/30/2025 5:40 PM Noy Bob RN Ambulates or transfers with assistive devices or assist 0 09/30/2025 5:40 PM Noy Bob RN Unable to ambulate or transfer 1 09/30/2025 5:40 PM Noy Bob RN Nursing judgement 1 09/30/2025 5:4 0 PM Noy Bob RN KINDER 1 Fall Risk Score 3 025 5:40 PM Noy Bob RN High Fall Risk Interventions for Scores 1 and above Fall risk bundle components in place as defined below;Non-skid socks on patient as appropriate;Call light within reach 09/30/2025 5:40 PM Noy Bob RN * Geriatric Triage Risk Screening Tool (TRST) Question Answer Entry Date Author TRST Assessment Total 0 09/30/2025 5:44 PM Noy Bob RN Cognitive impairment 0 09/30/2025 5:44 PM Noy Ugalde RN Five or more medications 0 09/30/2025 5:44 PM Noy Bob RN Difficulty walking/ transfer ring, or recent falls 0 09/30/2025 5:44 PM Noy Bob RN ED use in the last 30 days o r hospitalization in previous 90 days 0 09/30/2025 5:44 PM Noy Aguirre RN Lives alone and/ or no caregiver 0 09/30/20 25 5:44 PM Noy Bob RN ED staff concerns 0 09/30/2025 5:44 PM Noy Bob RN * [place] Suicide Severity Rating Scale Question Answer Entry Date Author Is patient awake, alert, and able to answer questions appropriately? Yes 09/30/2025 5:40 PM Noy Bruner RN * Patient Belongings Placed in Locker Question Answer Entry Date Author Belongings at Bedside Retained by mya javed and/or family/legal strategic partnership representative who assumes responsibility 09/30/2025 5:44 PM Noy Bob RN * [place] Suicide Severity Rating Scale Question Answer Entry Date Author 1. Wish to be (Past 1 Month) No 025 5:40 PM Noy Bob RN 2. Non-Specific Active Suici alberto Thoughts (Past 1 Month) No 09/30/2025 5:40 PM Noy Bob RN 6. Suicidal Behavior (Lifetime) No 5:40 PM Noy Bob RN * Peripheral Vascular Question Answer Entry Date Author Peripheral Vascular (WDL) X 09/30/2025 7:27 PM Tresa Chavis RN * Quick Updates Question Answer Entry Date Author Quick Updates - Free Text Pt refused discharge vital signs. GCS 15. 10/01/2025 12:50 AM Tresa Chavis RN * Weight in (lb) to have BMI = 25 Answer Entry Date Author 136.4 09/30/2025 5:55 PM Michael Bob RN * BMI (Calculated) Answer Entry Date Author 20.7 09/30/2025 5:55 PM Michael Bob RN * Percent Excess Weight Loss Answer Entry Date Author 0 09/30/2025 5:55 PM Michael Bob RN * Weight Change Since Preop Answer Entry Date Author 51.2 09/30/2025 5:55 PM Michael Bob, RN * Initial Excess Weight Answer Entry Date Author -49.9 09/30/2025 5:55 PM Michael Bob, RN * IBW in kg (Bariatric) Answer Entry Date Author 49.9 09/30/2025 5:55 PM Michael Bob RN * IBW in lb (Bariatric) Answer Entry Date Author 110 09/30/2025 5:55 PM Michael Bob RN * Weight Change Since Last Visit Answer Entry Date Author 51.2 09/30/2025 5:55 PM Michael Bob RN * Percent of IBW Answer Entry Date Author 102.61 09/30/2025 5:55 PM Michael Bob RN * EBW (kg) Answer Entry Date Author 1.29 09/30/2025 5:55 PM Michael Bob, RN * EBW (lb) Answer Entry Date Author 2.88 09/30/2025 5:55 PM Michael Bob RN * Difference in Weight Since Last Visit Answer Entry Date Author -4.59 09/30/2025 5:55 PM Michael Bob, RN * Temp (in Celsius) for [place] IV Answer Entry Date Author 36.9 09/30/2025 4:59 PM Flor Bernstein, RN * Pain Assessment Question Answer Entry Date Author Pain Location Leg 09/30/2025 11:32 PM Tresa Chavis RN Pain Orientation Left 09/30/2025 11:3 2 PM Tresa Chavis RN Pain Descriptors Throbbing 09/30/2025 11:3 2 PM Tresa Chavis RN Pain Frequency Constant/continuous 09/30/2025 8 :28 PM Tresa Chavis RN Patient's Stated Pain Goal No pain 09/30/2025 11:32 PM Tresa Chavis RN Pain Type Acute pain 09/30/2025 11:32 PM Tresa Chavis RN Clinical Progression Not changed 09/30/2025 10:31 PM Tresa Chavis RN Pain Score 3 09/30/2025 11:32 PM Tresa Chavis RN Pain Assessment 0-10 (Adult DVPRS/Pe ds 0-10) 09/30/2025 11:32 PM Tresa Chavis RN * IBW/kg (Calculated) Answer Entry Date Author 50.1 09/30/2025 5:55 PM Michael Bob RN * Adult Low Range Vt 6mL/kg Answer Entry Date Author 300.6 09/30/2025 5:55 PM Michael Bob, RN * Adult Moderate Range Vt 8mL/kg Answer Entry Date Author 400.8 09/30/2025 5:55 PM Michael Bob RN * Adult High Range Vt 10mL/kg Answer Entry Date Author 501 09/30/2025 5:55 PM Michael Bob, RN * PVS Additional Assessments Answer Entry Date Author RLE 09/30/2025 7:27 PM Oscar Chavis ace RN * Mini Nutritional Assessment/Screening (Adults 65 and Older) Question Answer Entry Date Author A. Has food intake declined over the past 3 months due to loss of appetite, digestive problems, chewing or swallowing difficulties? 2 09/30/2025 5:56 PM Noy Aguirre RN B. Weight loss during the la st 3 months 3 09/30/2025 5:56 PM Noy Bob RN C. Mobility 2 09/30/2025 5:56 PM Noy Bob RN D. Has suffered psychologica l stress or acute disease in the past 3 months? 2 09/30/2025 5:56 PM Noy Bob RN E. Neuropsychological problems 2 09/30/2025 5:56 PM Noy Bob RN * F1. MNA Body Mass Index (BMI) (Weight in kg)/(Height in m)2 Answer Entry Date Author 1 09/30/2025 5:56 PM Michael Bob RN * Mini Nutritional Screening Score Answer Entry Date Author 12 09/30/2025 5:56 PM Michael Bob RN * [place] Coma Scale Numeric Answer Entry Date Author 15 09/30/2025 7:29 PM Oscar Chavis ace, RN * Neurological Question Answer Entry Date Author Level of Consciousness Alert 7:29 PM Tresa Chavis, RN L Pupil Reaction Brisk 09/30/2025 7:29 PM Tresa Chavis, RN L Pupil Size (mm) 3 09/30/2025 7:2 9 PM Tresa Chavis, RN R Pupil Reaction Brisk 09/30/2025 7:29 PM Tresa Chavis, RN R Pupil Size (mm) 3 09/30/2025 7:2 9 PM Tresa Chavis, RN Neuro Pertinent Negatives Alert and orie nted x 4;Speech clear 09/30/2025 7:29 PM Tresa Chavis, RN R Pupil Shape Round 09/30/2025 7:29 PM Tresa Chavis, RN L Pupil Shape Round 09/30/2025 7:29 PM Tresa Chavis, RN Neuro (WDL) WDL 09/30/2025 7:29 PM Tresa Chavis, RN * Cardiac Question Answer Entry Date Author Cardiac Rhythm NSR 09/30/2025 7:29 PM EST Tresa Mendoza, RN Skin Color Appropriate for ethnicity 09/30/2025 7:29 PM Tresa Chavis, RN * Musculoskeletal Question Answer Entry Date Author RLE Pain with movement;Weakness;Sensa tion intact 09/30/2025 7:28 PM Tresa Chavis RN Musculoskeletal (WDL) X 09/30/2025 7:28 PM Tresa Chavis RN * Vitals Timer Question Answer Entry Date Author Update Vitals Alert Interval 240 09/30/2025 8 :42 PM Jesus Lopez CNA Restart Vitals Timer Yes 09/30/2025 4:59 PM E Franko Cohn RN Restart Vitals Timer Yes 09/30/2025 8:42 PM E Jesus Pastrana CNA * Hourly Rounding Question Answer Entry Date Author Activity Assistance One person assist 09/30/2025 11:32 PM Tresa Chavis RN Repositioned Turns self 09/30/2025 11:32 PM Tresa Chavis RN Head of Bed Elevated HOB 30 09/30/2025 11:32 PM Tresa Chavis RN Toileting Offered and refused 09/30/2025 1 1:32 PM Tresa Chavis RN Call Light Oriented to call light;Call light present and within reach 09/30/2025 11:32 PM Tresa Chavis RN Rest/ Sleep No problem identified;Resting 09/30/2025 11:32 PM Tresa Chavis RN Rest/ Sleep Enhancement Care clustered t o minimize awakenings 09/30/2025 11:32 PM Tresa Chavis RN Completed Hourly Rounding Yes 2024 11:32 PM Tresa Chavis RN Plan of Care Reviewed With Patient 09/30/2025 11:32 PM Tresa Chavis RN documented in this encounter Discharge Instructions * Discharge Instructions* Raven Gutierrez DO - 10/01/2025 12:26 AM EST You were seen in the ED for left lower extremity pain. You should follow up with vascular surgery. You are being discharge with a referral to Vascular Surgery at if you would like to establish care here with our team. You are being discharged with pain medication. Please take as prescribed. Please return to ED if your symptoms worsen, change in location, change in severity, new symptoms develop or if you become concerned for your health. documented in this encounter Medications at Time of Discharge acetaminophen (Tylenol) 500 MG tablet Take 2 tablets (1,000 mg) by mouth every 8 (eight) hours if needed for pain. 08/09/2024 ALPRAZolam (Xanax) 0.5 MG tablet Take 1 tablet (0.5 mg) by mouth at night if needed for anxiety or sleep. 3 tablet 08/09/2024 aspirin 81 MG EC tablet Take 1 tablet (81 mg) by mouth 1 (one) time each day. atorvastatin (Lipitor) 40 MG tablet Take 1 tablet (40 mg) by mouth every night. 08/09/2024 brimonidine 0.2 % OP ophthalmic solution Administer 1 drop into both eyes 2 (two) times a day. calcium carbonate (Tums Ultra) 1000 MG chewable tablet Chew 1 tablet (1,000 mg) 1 (one) time each day. 08/09/2024 carvedilol (Coreg) 6.25 MG tablet Take 1 tablet (6.25 mg) by mouth 2 (two) times a day with meals. cholecalciferol 25 MCG tablet Take 1,000 Units by mouth 1 (one) time each day. 08/09/2024 furosemide (Lasix) 40 MG tablet Take 1 tablet (40 mg) by mouth 1 (one) time each day in the morning. methocarbamol (Robaxin) 500 MG tablet Take 1 tablet (500 mg) by mouth 4 (four) times a day if needed for muscle spasms. 08/09/2024 Multiple Vitamins-Minerals (CENTRUM ADULTS PO) Take 1 tablet by mouth 1 (one) time each day in the morning. naloxone (Narcan) 4 mg/0.1 mL nasal spray 1. Give 1 spray in nostril for no/slow breathing or cannot wake after opioid use 2. Call 911 3. Repeat in other nostril if symptoms continue 08/09/2024 ondansetron ODT (Zofran-ODT) 4 MG disintegrating tablet Take 1 tablet (4 mg) by mouth every 6 (six) hours if needed for nausea or vomiting. 08/09/2024 oxyCODONE (Roxicodone) 10 MG immediate release tablet polyethylene glycol (Miralax) 17 g packet Take 17 g by mouth 2 (two) times a day. 08/09/2024 potassium chloride CR (Klor-Con M20) 20 MEQ ER tablet Take 1 tablet (20 mEq) by mouth 1 (one) time each day in the morning. Do not crush or chew. ranolazine (Ranexa) 1000 MG 12 hr tablet Take 1 tablet (1,000 mg) by mouth 1 (one) time each day in the morning. Do not crush, chew, or split. ranolazine (Ranexa) 500 MG 12 hr tablet Take 1 tablet (500 mg) by mouth every night. Do not crush, chew, or split. senna (Senokot) 8.6 MG tablet Take 2 tablets (17.2 mg) by mouth 2 (two) times a day. 08/09/2024 traMADol (Ultram) 50 MG tablet Take 1 tablet (50 mg) by mouth every 8 (eight) hours if needed for severe pain. 30 tablet 09/19/2024 oxyCODONE (Roxicodone) 5 MG immediate release tablet Take 1 tablet by mouth every 6 hours as needed (pain) for up to 3 days. 12 tablet 10/01/2025 documented as of this encounter Miscellaneous Notes * ED Provider Notes - Raven Gutierrez DO - 09/30/2025 4:55 PM EST Images from the original note were not included. - HPI Chief Complaint Patient presents with Medical Evaluation PIT NOTE Miladis Montoya is a 84 y.o. female who presents to the ED with medical evaluation. Pt c/o right lower extremity pain for several months that increased x3 weeks. Family states [place] [facility] [place] provider was concerned for blood flow and advised to present to ED. PSH left AKA. Pt endorses use of Oxycodone at home. Patient has no other complaints at this time. science interpreter used: No MAIN ED NOTE: Scocca, DO I took over care of this patient from [facility]. I agree with the history above. Additional history includes: Patient is an 84-year-old female with past medical history of AFib, anemia, CKD, heart failure witha preserved ejection fraction, history of subarachnoid hemorrhage, history of PE, type 2 diabetes, hypertension, PAD status post left AKA, seizures on keppra who presents to the ED with RLE pain. Patient states she has had worsening right lower extremity pain over the last several weeks. She describes it as similar to her prior pain in her left lower extremity prior to the amputation. She states it is mainly in her right great toe. She notices discoloration in her toes over the last few days. Denies any trauma. She takes aspirin but no over the blood thinner. Patient was reportedly not candidate for blood thinner given her prior history of subarachnoid hemorrhage and anemia. Patient History Past Medical History[1] Surgical History[2] Family History[3] Social History[4] Allergies: Allergies[5] Physical Exam ED Triage Vitals [09/30/25 1659] Temp Heart Rate Resp BP 36.9 ??C (98.5 ??F) 82 18 (!) 171/88 SpO2 Temp Source Heart Rate Source Patient Position 98 % Oral -- -- BP Location FiO2 (%) -- -- Physical Exam Vitals and nursing note reviewed. Constitutional: General: She is not in acute distress. HENT: Head: Normocephalic and atraumatic. Comments: No facial swelling Right Ear: External ear normal. Left Ear: External ear normal. Mouth/Throat: Mouth: Mucous membranes are moist. Pharynx: Oropharynx is clear. Cardiovascular: Rate and Rhythm: Normal rate and regular rhythm. Pulmonary: Effort: Pulmonary effort is normal. No respiratory distress. Breath sounds: Normal air entry. Comments: Speaking full sentences. Symmetric chest rise Abdominal: General: There is no distension. Musculoskeletal: General: No swelling, tenderness, deformity or signs of injury. Normal range of motion. Cervical back: Normal range of motion. Right lower leg: No edema. Left lower leg: No edema. Comments: Left AKA. Dopplerable PT signal in right lower extremity. Her digits are warm, Although her capillary refill is slightly delayed. She has a thickened toenails which is consistent with poor perfusion. Skin: General: Skin is warm and dry. Capillary Refill: Capillary refill takes 2 to 3 seconds. Neurological: Mental Status: She is alert. Mental status is at baseline. Comments: Awake Psychiatric: Behavior: Behavior normal. EASI ?? Total Score: 0 [place] Coma Scale Score: 15 Mini Nutritional Screening Score : 12 TRST Assessment Total: 0 ED Course & MDM Date/Time: 09/30/2025 3:55 AM Scribe Attestation: This note was dictated to me, Olena Suresh, acting as a scribe for Karen Sommers MD. Attending Attestation: The documentation was recorded by Olena Suresh acting as scribe in my presence at the time of the encounter and accurately reflects the service I personally performed. - Assessment: 84 y.o. female presents to ED with complaint of left lower extremity pain. On initial evaluation, patient is complaining of pain in right lower extremity. She is hemodynamically stable, afebrile, in no acute distress. Differential Diagnosis: PAD, PVD, DVT, arterial occlusion, among others. In order to fully explore the differential diagnosis the following treatments and tests were ordered: ED Medication Administration from 09/30/2025 1624 to 10/01/2025 0355 Date/Time Order Dose Route Action 09/30/2025 1755 EST oxyCODONE (Roxicodone) immediate release tablet 5 mg 5 mg Oral Given 09/30/20251924 EST morphine PF 4 mg 4 mg Intravenous Given 09/30/2025 192 EST ondansetron (Zofran) injection 4 mg 4 mg Intravenous Given 09/30/20252014 EST iohexol (OMNIPaque) 350 MG/ML injection 200 mL 150 mL Intravenous Given 10/01/2025 0030 EST morphine PF 4 mg 4 mg Intravenous Not Given All Other Orders Ordered Status Ordering Provider 10/01/25 0030 Ambulatory referral for Follow Up Care Ordered SCOCCA, RAVEN L 10/01/25 003 Discharge Ambulatory referral to Vascular Surgery Ordered SCOCCA, RAVEN L 09/30/252036 Potassium STAT Final result SCOCCA, RAVEN L 09/30/[address] Angio Abdomen Pelvis w Runoff Once Final result SCOCCA, RAVEN L 09/30/25 1908 Lactic acid, venous STAT Final result SCOCCA, RAVEN L 09/30/25 1716 Once Canceled KAREN SOMMERS 09/30/25 1716 Hepatitis C Antibody - ED Once Final result KAREN SOMMERS 09/30/25 171 ED Protocol - HIV 1/2 Antibody/Antigen Screen Once Final result KAREN SOMMERS 09/30/25 1716 ED HIV 1/2 Antibody/Antigen Screen w/Reflex to HIV 1/2 Differentiation PROCEDURE ONCE Final result KAREN SOMMERS 09/30/25 171 BMP STAT Final result KAREN SOMMERS 09/30/25 171 CBC w/diff STAT Final result KAREN SOMMERS 09/30/25 171 Once Canceled KAREN SOMMERS ED Course as of 10/01/25 0355 Mon Sep 30, 2025 2345 Patient wanting to leave prior to imaging completion, but decided to stay. CBC, BNP, lactate nonactionable. [CS] TuOct 01, 2025 0013 CTA demonstrates - No acute arterial abnormality. Redemonstration of the severe diffuse calcified and noncalcified atherosclerosis within the arteries of the right lower extremity within limits of the study as described above. Due to circumferential arterial calcification, evaluation of the right lower extremity is limited. There appears to be arterial contrast opacification in the right foot. There is total occlusion of the left superficial femoral artery at the stump of unknown clinical significance. There is a 16 mm suspicious right lower lobe nodule the major fissure. Recommend close follow-up imaging or PET/CT for further evaluation. Cirrhotic liver morphology. Compression deformity of the partially visualized T6 vertebral body with approximately 30% vertebral body height loss. Compression deformity of the superior endplate of L2 with approximately 40% vertebral body height loss. These are new from CT chest dated 08/02/2024. Old right rib fractures, though the right lateral ninth rib fracture is new from prior CT. Right transverse process of L3 fracture which is new from prior CT. No acute arterial abnormality. Redemonstration of the diffuse calcified and noncalcified atherosclerosis within the arteries of the right lower extremity within limits of the study as described above. [CS] 0350 I discussed with the patient her CT findings and advised that she follow up with her vascular surgery team given there does not appear to be any acute occlusion and she has contrast distally in her extremities and toes. She states that she would around her established with care here at as she is now living in [place] with her son. I provided a referral to vascular surgery here at . Additionally, provided a referral for PCP follow up. Patient has been agreement with the plan. I did provide some oxycodone for pain control as a bridge to her follow up appointment. Plan discussed with the patient patient agreeable to plan. All questions concerns were addressed. Return precautions we re discussed. [CS] ED Course User Index [CS] Raven Gutierrez DO Clinical Impressions as of 10/01/25 0355 PVD (peripheral vascular disease) Right lower lobe pulmonary nodule Social Determinates of Health Risks (including Economic Stability, Education and level of understanding, Healthcare access and quality and concerning social factors): None identified on this visit Ultimately, this patient was Was discharged Home (Discharge) The primary encounter diagnosis was PVD (peripheral vascular disease). A diagnosis of Right lower lobe pulmonary nodule was also pertinent to this visit. . Patient was counseled on the diagnoses. Discharge medications if any are listed below. Listed medications are thought be either curative for listed diagnoses or will help control ongoing symptoms. Patient is requested to follow up with Patient's Primary Care Provider and Vascular in order to obtain routine follow-up. Instructionson follow up as well as precautions to return to the ER provided verbally by the EM provider, as well as written in patients discharge education packet. ED Prescriptions Medication Sig Dispense Start Date End Date Auth. Provider oxyCODONE (Roxicodone) 5 MG immediate release tablet Take 1 tablet by mouth every 6 hours as needed(pain) for up to 3 days. 12 tablet 10/01/2025 10/04/2025 Raven Gutierrez DO Discharge Instructions You were seen in the ED for left lower extremity pain. You should follow up with vascular surgery. You are being discharge with a referral to Vascular Surgery at if you would like to establish care here with our team. You are being discharged with pain medication. Please take as prescribed. Please return to ED if your symptoms worsen, change in location, change in severity, new symptoms develop or if you become concerned for your health. Disposition Discharge AVS (Serbian Snapshot) - Printed 10/01/2025 Follow-Ups: Follow up with [facility] (Cardiothoracic Surgery) Discharge Orders Ambulatory referral for Follow Up Care Authorized Discharge Ambulatory referral to Vascular Surgery Authorized - Raven Gutierrez DO Resident 10/01/25 0351 [1] Past Medical History: Diagnosis Date Angina at rest (CMS/HCC) 04/11/2016 Arthralgia 09/30/2014 Asthenia 04/09/2016 Bruise of periocular tissue 04/25/2018 Conjunctival hemorrhage, unspecified eye Conjunctival hemorrhage Contusion of right eyelid and periocular area, sequela Bruise of periocular tissue, right, sequela Conversions - Other Headache Coronary artery disease Diabetes mellitus Difficulty voiding 02/19/2019 Dysuria 06/26/2015 Edema 09/30/2014 Feeling of incomplete bladder emptying 02/19/2019 Glaucoma secondary to other eye disorders, right eye, 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 This could likely be contributing to patient's symptoms of weakness, dizziness and palpitations. Magnesium oxide 400 mg twice daily was started at last office visit 1 month ago. She is here today to recheck magnesium level. - Order sent with patient to Open angle with borderline findings and low glaucoma risk in left eye 10/03/2020 Other malaise Malaise and fatigue Palpitations 04/28/2023 Last Assessment & Plan: Holter monitor from 04/28/2023 reveals a relatively benign monitor study. 3.8% PVC burden. Rare PVCs and rare nonsustained SVT. No atrial fibs relation noted. No life-threatening arrhythmias or pauses. BMP, magnesium and TSH labs reviewed. Magnesium was low at 1.0. - Magnesium oxide 400 mg twice daily. Pelvic floor dysfunction 02/19/2019 Personal history of diseases of the blood and blood-forming organs and certain disorders involving the immune mechanism History of antiphospholipid syndrome Personal history of other diseases of the circulatory system History of coronary atherosclerosis Personal history of other infectious and parasitic diseases History of herpes zoster Personal history of other specified conditions History of breast lump Personal history of pulmonary embolism History of pulmonary embolism Personal history of urinary calculi History of urinary stone Post-menopausal atrophic vaginitis 02/19/2019 Posterior capsular opacification of left eye, obscuring vision 11/06/2019 Seizure ([facility]) 02/19/2019 SOB (shortness of breath) 06/29/2023 Last Assessment & Plan: Acute onset of shortness of breath and left sided lung/rib pain that started 4 days ago. Patient feels like she may have a pulmonary embolism, the pain feels just like it did when she had a previous PE in 2010. She also has a history of antiphospholipid antibody syndrome and is on warfarin. - Stat CT of [place] Spondylosis 09/30/2014 Subconjunctival hemorrhage of right eye 01/20/2021 Unstable angina ([facility]) 04/10/2016 Urinary urgency 02/19/2019 [2] Past Surgical History: Procedure Laterality Date CARDIAC CATHETERIZATION N/A Cardiac Cath Procedure Summary from [facility] CATARACT EXTRACTION N/A Cataract Extraction from [facility] CATH STENT PLACEMENT/ CATH PLACEMENT OF STENT N/A Cath Placement Of Stent 1 from [facility] CHOLECYSTECTOMY N/A Cholecystectomy from [facility] CORONARY ARTERY BYPASS GRAFT N/A CABG from [facility] HIP SURGERY N/A Hip Surgery from [facility] HYSTERECTOMY N/A Hysterectomy from [facility] LASER TRABECULOPLASTY, ANTERIOR CHAMBER Bilateral 11/24/2023 OTHER SURGICAL HISTORY N/A Colonoscopy (Fiberoptic) from [facility] UTERINE SURGERY N/A Hysteropexy from [facility] [3] Family History Problem Relation Name Age of Onset Colon cancer Mother Cardiac disorder Brother Diabetes Sister Hypertension Brother Hypertension Son Other cancer Mother Other cancer Father Prostate cancer Father Ovarian cancer Sister [4] Tobacco Use Smoking status: Former Current packs/day: 0.00 Types: Cigarettes Start date: 1955 Quit date: 1991 Years since quittin.9 Passive exposure: Past Smokeless tobacco: Never Vaping Use Vaping status: Never Used Substance Use Topics Alcohol use: No Drug use: Never [5] Allergies Allergen Reactions Lidocaine Rash Nitrofurantoin Hives, Itching and Rash Macrobid Ravne Gutierrez DO Resident 10/01/25 0355 Cosigned by Jesse May MD at 10/04/2025 8:29 AM EST Associated attestation - Jesse May MD - 10/04/2025 8:29 AM EST I saw and evaluated the patient with the resident/fellow. I discussed the case with the resident/fellow and agree with the findings and plan as documented. * ED Triage Notes - Franko Matos RN - 09/30/2025 4:55 PM EST Pt presents with right foot pain and swelling, sent from OSH with concern for pulseless foot documented in this encounter Plan of Treatment Upcoming Encounters Date Type Department Care Team (Late st Contact Info) Description 10/24/2025 1:30 PM EST Appointment [facility] [address] [place] [address] 10/24/2025 2:20 PM EST Office Visit [facility] [address] [place] [address] Zaida Nichols MD [address] [facility] [address] [place] [address] Scheduled Referrals Name Type Priority Associated Diagnoses Order Schedule Ambulatory referral for Follow Up Care Outpatient Referral Routine PVD (peripheral vascular disease) 1 Occurrences starting 10/01/2025 until 04/04/2027 Discharge Ambulatory referral to Vascular Surgery Outpatient Referral Routine PVD (peripheral vascular disease) Expected: 10/01/2025 (Approximate), Expires: 04/04/2027 documented as of this encounter Procedures Procedure Name Priority Date/Time Associated Diagnosis Comments POTASSIUM, PLASMA STAT 09/30/2025 9:[address] ANGIO ABDOMEN PELVIS W RUNOFF STAT 09/30/2025 8:41 PM EST LACTATE, VENOUS STAT 09/30/2025 7:25 PM EST ED HIV 1/2 ANTIBODY/ANTIGEN SCREEN WITH REFLEX TO HIV I/II DIFFERENTIATION STAT 09/30/2025 5:24 PM EST ED PROTOCOL HIV 1/2 ANTIBODY/ANTIGEN SCREEN W/REFLEX TO HIV 1/2 ANTIBODY DIFFERENTIATION STAT 09/30/2025 5:24 PM EST HEPATITIS C ANTIBODY - ED W/REFLEX TO HCV QUANT PCR STAT 09/30/2025 5:24 PM EST CBC WITH AUTO DIFFERENTIAL STAT 09/30/2025 5:24 PM EST BASIC METABOLIC PANEL, PLASMA STAT 09/30/2025 5:24 PM EST documented in this encounter Results * Potassium (09/30/2025 9:03 PM EST) Potassium, Plasma 4.1 3.6 - 4.9 mmol/L 09/30/2025 9:54 PM EST [facility] Blood Venous blood specimen / Unknown Venipuncture / Unknown 09/30/2025 9:03 PM EST 09/30/2025 9:34 PM EST us Jesse May MD LAB BLOOD ORDERABLES Final Re sult [facility] [address] [place] [address] * CT Angio Abdomen Pelvis w Runoff (09/30/2025 8:41 PM EST) Anatomical Region Laterality Modality Pelvis and lower extremeties Bilateral Com puted Tomography Impressions 09/30/2025 11:55 PM EST No acute arterial abnormality. Redemonstration of the severe diffuse calcified and noncalcified atherosclerosis within the arteries of the right lower extremity within limits of the study as described above. Due to circumferential arterial calcification, evaluation of the right lower extremity is limited. There appears to be arterial contrast opacification in the right foot. There is total occlusion of the left superficial femoral artery at the stump of unknown clinical significance. There is a 16 mm suspicious right lower lobe nodule the major fissure. Recommend close follow-up imaging or PET/CT for further evaluation. Cirrhotic liver morphology. Compression deformity of the partially visualized T6 vertebral body with approximately 30% vertebral body height loss. Compression deformity of the superior endplate of L2 with approximately 40% vertebral body height loss. These are new from CT chest dated 08/02/2024. Old right rib fractures, though the right lateral ninth rib fracture is new from prior CT. Right transverse process of L3 fracture which is new from prior CT. No acute arterial abnormality. Redemonstration of the diffuse calcified and noncalcified atherosclerosis within the arteries of the right lower extremity within limits of the study as described above. CRITICAL RESULT: No. COMMUNICATION: Pulmonary and vascular findings were discussed via phone with Roni Zarco on 09/30/2025 11:50 PM by Farhad Ybarra MD with acknowledgment of the results. Preliminary report signed by Jake Barnett MD on 09/30/2025 10:40 PM By electronically signing this report, I, the attending physician, attest that I have personally reviewed the images/data for the above examination(s) and agree with the final edited report. Drafted by Jake Barnett MD on 09/30/2025 10:01 PM Final report signed by Farhad Ybarra MD on 09/30/2025 11:55 PM Narrative 09/30/2025 11:55 PM EST CLINICAL INDICATION: TAR TECHNIQUE: Imaging of the abdomen and lower extremities was performed, from lung bases through bilateral lower extremities, using spiral technique, following administration of IV contrast, Omnipaque 350, 100 mL according to the CTA with runoff. Reformatted images in the coronal, sagittal, and oblique planes were generated from the axial data set to facilitate diagnostic accuracy. In addition, 3D images were created and reviewed. Total DLP (Dose-Length Product): 1433.61 mGy.cm. Please note: The reported value represents the total of one or more individual components during the CT acquisition on this date and at this time, and as such, the same value may appear in more than one CT report depending on the interpreting/reporting physicians. COMPARISON: 08/02/24 CTs. FINDINGS: Abdomen: Lower chest: Moderate centrilobular emphysema. There is a 16 mm right lower lobe nodule the major fissure. Cardiomegaly. Coronary artery calcification. Hyperdense metallic material in the retrosternal space, prior sternotomy. Liver/Gallbladder/Biliary System: Cirrhotic liver morphology. Prior cholecystectomy. Post cholecystectomy ductal ectasia. Spleen: Unchanged simple cysts of the spleen. Pancreas: No acute findings. Adrenals: Thickening of the left adrenal gland. No adrenal nodule. Kidneys: Redemonstration of the numerous simple cysts of the bilateral kidneys. There is increased attenuation of a previously noted simple cyst on the superior pole of the left kidney, which may represent a hemorrhagic or proteinaceous cyst. No obstructive renal or ureteral calculi. No hydronephrosis. Bowel/Mesentery: The small bowel loops are not dilated. Diverticulosis without evidence of diverticulitis. The appendix is not definitively visualized. Lymph Nodes: No lymphadenopathy within the abdomen or pelvis. Fluid Survey: No free fluid in the abdomen. No free fluid in the pelvis. Pelvis: Distended bladder. Body Wall: Surgical clips within the medial right calf. Diffuse muscular atrophy. Bones: Right hip total arthroplasty. Intramedullary pat and screw fixation of the left hip. Left above knee amputation. Right tibial intramedullary pat and screw fixation of old tibial fracture. Old right fibular fracture. Compression deformity of the partially visualized T6 vertebral body with approximately 30% vertebral body height loss. Compression deformity of the superior endplate of L2 with approximately 40% vertebral body height loss. Intervertebral disc spacers again noted between L4-L5. Multilevel degenerative changes of the remainder of the spine. Laminectomy changes of L4. Old right rib fractures, though the right lateral ninth rib fracture 1is new from prior CT. Median sternotomy wires. Right transverse process of L3 fracture which is new from prior CT. Old superior pubic ramus fracture on the left. Vessels: Abdomen/pelvis: Severe multivessel coronary calcification. Contrast refluxed into the hepatic veins. Ectasia of the ascending aorta measuring 3.6 cm. There is severe aortoiliac and branch vessel calcifications. There is severe atherosclerotic the bilateral common iliac arteries, without severe stenosis. Bilateral external iliac artery stents are patent. Similar likely severe stenosis of the ostium of the celiac trunk and at least moderate stenosis SMA ostium severe calcification of the bilateral common iliac arteries. Lower Extremities: Right Lower Extremity: Right Common Iliac Artery: Severe calcification, otherwise patent right common iliac artery Right External Iliac Artery: Calcified and noncalcified plaque with moderate stenosis of the proximal external iliac artery Right Common Femoral Artery: Calcified and noncalcified plaque with moderate to severe stenosis. Right Deep Femoral Artery: Patent. Right Superficial Femoral Artery: Calcified and noncalcified plaque with at least mild stenosis. Right Popliteal Artery: Calcified and noncalcified plaque with at least moderate stenosis. Right anterior tibial artery, peroneal trunk, posterior tibial artery, peroneal artery discussion: Similar, limited evaluation secondary to circumferential calcification. There is contrast within the arteries of the foot. Left Lower Extremity: Left Common Iliac Artery: Circumferential calcification, otherwise patent. Left External Iliac Artery: Patent Left Common Femoral Artery: Calcified and noncalcified plaque with severe stenosis. Left Deep Femoral Artery: Patent proximally. Superficial femoral artery: Becomes totally occluded near the stump. Procedure Note Farhad Ybarra MD - 09/30/2025 CLINICAL INDICATION: TAR TECHNIQUE: Imaging of the abdomen and lower extremities was performed, from lungbases through bilateral lower extremities, using spiral technique,following administration of IV contrast, Omnipaque 350, 100 mL accordingto the CTA with runoff. Reformatted images in the coronal, sagittal, andoblique planes were generated from the axial data set to facilitatediagnostic accuracy. In addition, 3D images were created and reviewed. Total DLP (Dose-Length Product): 1433.61 mGy.cm. Please note: The reportedvalue represents the total of one or more individual components during theCT acquisition on this date and at this time, and as such, the same valuemay appear in more than one CT report depending on theinterpreting/reporting physicians. COMPARISON: 08/02/24 CTs. FINDINGS: Abdomen: Lower chest: Moderate centrilobular emphysema. There is a 16 mm rightlower lobe nodule the major fissure. Cardiomegaly. Coronary arterycalcification. Hyperdense metallic material in the retrosternal space,prior sternotomy. Liver/Gallbladder/Biliary System: Cirrhotic liver morphology. Priorcholecystectomy. Post cholecystectomy ductal ectasia. Spleen: Unchanged simple cysts of the spleen. Pancreas: No acute findings. Adrenals: Thickening of the left adrenal gland. No adrenal nodule. Kidneys: Redemonstration of the numerous simple cysts of the bilateralkidneys. There is increased attenuation of a previously noted simple cyston the superior pole of the left kidney, which may represent a hemorrhagicor proteinaceous cyst. No obstructive renal or ureteral calculi. Nohydronephrosis. Bowel/Mesentery: The small bowel loops are not dilated. Diverticulosiswithout evidence of diverticulitis. The appendix is not definitivelyvisualized. Lymph Nodes: No lymphadenopathy within the abdomen or pelvis. Fluid Survey: No free fluid in the abdomen. No free fluid in the pelvis. Pelvis: Distended bladder. Body Wall: Surgical clips within the medial right calf. Diffuse muscularatrophy. Bones: Right hip total arthroplasty. Intramedullary pat and screw fixationof the left hip. Left above knee amputation. Right tibial intramedullaryrod and screw fixation of old tibial fracture. Old right fibular fracture.Compression deformity of the partially visualized T6 vertebral body withapproximately 30% vertebral body height loss. Compression deformity of thesuperior endplate of L2 with approximately 40% vertebral body height loss.Intervertebral disc spacers again noted between L4- L5. Multileveldegenerative changes of the remainder of the spine. Laminectomy changes ofL4. Old right rib fractures, though the right lateral ninth rib [id number] new from prior CT. Median sternotomy wires. Right transverse process of L3 fracture which is new from prior CT. Oldsuperior pubic ramus fracture on the left. Vessels: Abdomen/pelvis: Severe multivessel coronary calcification. Contrastrefluxed into the hepatic veins. Ectasia of the ascending aorta measuring3.6 cm. There is severe aortoiliac and branch vessel calcifications. Thereis severe atherosclerotic the bilateral common iliac arteries, withoutsevere stenosis. Bilateral external iliac artery stents are patent.Similar likely severe stenosis of the ostium of the celiac trunk and atleast moderate stenosis SMA ostium severe calcification of the bilateralcommon iliac arteries. Lower Extremities: Right Lower Extremity: Right Common Iliac Artery: Severe calcification, otherwise patent rightcommon iliac artery Right External Iliac Artery: Calcified and noncalcified plaque withmoderate stenosis of the proximal external iliac artery Right Common Femoral Artery: Calcified and noncalcified plaque withmoderate to severe stenosis. Right Deep Femoral Artery: Patent. Right Superficial Femoral Artery: Calcified and noncalcified plaque withat least mild stenosis. Right Popliteal Artery: Calcified and noncalcified plaque with at leastmoderate stenosis. Right anterior tibial artery, peroneal trunk, posterior tibial artery,peroneal artery discussion: Similar, limited evaluation secondary tocircumferential calcification. There is contrast within the arteries ofthe foot. Left Lower Extremity: Left Common Iliac Artery: Circumferential calcification, otherwisepatent. Left External Iliac Artery: Patent Left Common Femoral Artery: Calcified and noncalcified plaque with severestenosis. Left Deep Femoral Artery: Patent proximally. Superficial femoral artery: Becomes totally occluded near the stump. IMPRESSION: No acute arterial abnormality. Redemonstration of the severe diffusecalcified and noncalcified atherosclerosis within the arteries of theright lower extremity within limits of the study as described above. Dueto circumferential arterial calcification, evaluation of the right lowerextremity is limited. There appears to be arterial contrast opacificationin the right foot. There is total occlusion of the left superficial femoral artery at thestump of unknown clinical significance. There is a 16 mm suspicious right lower lobe nodule the major fissure.Recommend close follow-up imaging or PET/CT for further evaluation. Cirrhotic liver morphology. Compression deformity of the partially visualized T6 vertebral body withapproximately 30% vertebral body height loss. Compression deformity of thesuperior endplate of L2 with approximately 40% vertebral body height loss.These are new from CT chest dated 08/02/2024. Old right rib fractures, though the right lateral ninth rib fracture isnew from prior CT. Right transverse process of L3 fracture which is new from prior CT. No acute arterial abnormality. Redemonstration of the diffuse calcifiedand noncalcified atherosclerosis within the arteries of the right lowerextremity within limits of the study as described above. CRITICAL RESULT: No. COMMUNICATION: Pulmonary and vascular findings were discussed via phone with Karl on 09/30/2025 11:50 PM by Farhad Ybarra MD with acknowledgment of theresults. Preliminary report signed by Jake Barnett MD on 09/30/2025 10:40PM By electronically signing this report, I, the attending physician, attestthat I have personally reviewed the images/data for the aboveexamination(s) and agree with the final edited report. Drafted by Jake Barnett MD on 09/30/2025 10:01 PM Final report signed by Farhad Ybarra MD on 09/30/2025 11:55 PM Result Isabel Mcbride MD IMG CT PROCEDURES Final Result * Lactic acid, venous (09/30/2025 7:25 PM EST) [facility] Lactate, Venous, Whole Blood 1.6 0.5 - 2.2 mmol/L LAB HEMATOLOGY METHOD 09/30/2025 7:32 PM EST [facility] Blood Venous blood specimen / Unknown Venipuncture / Unknown 09/30/2025 7:25 PM EST 09/30/2025 7:30 PM EST us Eldon Mcbride MD LAB BLOOD ORDERABLES Final Resul t Performing Organization Address [facility]/[place] [address] * ED HIV 1/2 Antibody/Antigen Screen w/Reflex to HIV 1/2 Differentiation (09/30/2025 5:24 PM EST) [facility] HIV 1 & 2 Antibody/Antigen Screen Non Reactive Non Reactive 09/30/2025 6:56 PM EST [facility] Comment:Screening for HIV 1 & 2 antibodies, and P24 antigen is NONREACTIVE. No confirmatory testing is required. Blood Venous blood specimen / Unknown Venipuncture / Unknown 09/30/2025 5:24 PM EST 09/30/2025 6:16 PM EST us Karen Sommers MD LAB BLOOD ORDERABLES Final Res ult [facility] [address] [place] [address] * Hepatitis C Antibody - ED (09/30/2025 5:24 PM EST) [facility] Hepatitis C Antibody Negative Negative 09/30/2025 6:56 PM EST [facility] Blood Venous blood specimen / Unknown Venipuncture / Unknown 09/30/2025 5:24 PM EST 09/30/2025 6:15 PM EST us Karen Sommers MD LAB BLOOD ORDERABLES Final Res ult [facility] [address] [place] [address] * (ABNORMAL) CBC w/diff (09/30/2025 5:24 PM EST) WBC Count 4.07 3.70 - 10.30 10*3/uL LAB HEMATOLOGY METHOD 09/30/2025 7:51 PM EST [facility] RBC Count 2.53(L) 3.90 - 5.20 10*6/uL LAB HEMATOLOGY METHOD 09/30/2025 7:51 PM EST [facility] HGB 9.9(L) 11.2 - 15.7 g/dL LAB HEMATOLOGY METHOD 09/30/2025 7:51 PM EST [facility] HCT 30.0(L) 34.0 - 45.0 % LAB HEMATOLOGY METHOD 09/30/2025 7:51 PM EST [facility] Platelet Count LAB HEMATOLOGY METHOD 09/30/2025 7:51 PM EST [facility] Comment:Platelet count not v alid due to clumping. Appears decreased. MCV 119(H) 79 - 98 fL LAB HEMATOLOGY METHOD 09/30/2025 7:51 PM EST [facility] MCH 39.1(H) 26.0 - 32.0 pg LAB HEMATOLOGY METHOD 09/30/2025 7:51 PM EST [facility] MCHC 33.0 30.7 - 35.5 g/dL LAB HEMATOLOGY METHOD 09/30/2025 7:51 PM EST [facility] RDW 15.9(H) 11.5 - 14.5 % LAB HEMATOLOGY METHOD 09/30/2025 7:51 PM EST [facility] MPV LAB HEMATOLOGY METHOD 09/30/2025 7:51 PM EST [facility] Comment:Not Measured Not Sandra sured nRBC 0.0 <=0.0 per 100 WBCs LAB HEMATOLOGY METHOD 09/30/2025 7:51 PM EST [facility] Differential Type Automated LAB HEMATOLOGY METHOD 09/30/2025 7:51 PM EST [facility] Neutrophils % 54 % LAB HEMATOLOGY METHOD 09/30/2025 7:51 PM EST [facility] Lymphocytes % 36 % LAB HEMATOLOGY METHOD 09/30/2025 7:51 PM EST [facility] Monocytes % 8 % LAB HEMATOLOGY METHOD 09/30/2025 7:51 PM EST [facility] Eosinophils % 0 % LAB HEMATOLOGY METHOD 09/30/2025 7:51 PM EST [facility] Basophils % 1 % LAB HEMATOLOGY METHOD 09/30/2025 7:51 PM EST [facility] Immature Granulocytes % 1 % LAB HEMATOLOGY METHOD 09/30/2025 7:51 PM EST [facility] Neutrophils Absolute 2.25 1.60 - 6.10 10*3/uL LAB HEMATOLOGY METHOD 09/30/2025 7:51 PM EST [facility] Lymphocytes Absolute 1.45 1.20 - 3.90 10*3/uL LAB HEMATOLOGY METHOD 09/30/2025 7:51 PM EST [facility] Monocytes Absolute 0.31 0.30 - 0.90 10*3/uL LAB HEMATOLOGY METHOD 09/30/2025 7:51 PM EST [facility] Eosinophils Absolute 0.01 0.00 - 0.50 10*3/uL LAB HEMATOLOGY METHOD 09/30/2025 7:51 PM EST [facility] Basophils Absolute 0.03 0.00 - 0.10 10*3/uL LAB HEMATOLOGY METHOD 09/30/2025 7:51 PM EST [facility] Immature Granulocytes Absolute 0.02 0.00 - 0.06 10*3/uL LAB HEMATOLOGY METHOD 09/30/2025 7:51 PM EST [facility] Blood Venous blood specimen / Unknown Venipuncture / Unknown 09/30/2025 5:24 PM EST 09/30/2025 5:39 PM EST Narrative [facility] - 09/30/2025 7:51 PM EST Therapeutic decision making should be based on absolute values, rather than percentages. us Karen Sommers MD LAB BLOOD ORDERABLES Final Res ult [facility] [address] [place] [address] * (ABNORMAL) BMP (09/30/2025 5:24 PM EST) Glucose, Plasma 199(H) 74 - 99 mg/dL 09/30/2025 6:45 PM EST [facility] BUN, Plasma 28(H) 8 - 23 mg/dL 09/30/2025 6:45 PM EST [facility] Creatinine, Plasma 0.84 0.60 - 1.10 mg/dL 09/30/2025 6:45 PM EST [facility] BUN/Creatinine Ratio 33 09/30/2025 6:45 PM EST [facility] Sodium, Plasma 138 136 - 145 mmol/L 09/30/2025 6:45 PM EST [facility] Potassium, Plasma 5.5(H) 3.6 - 4.9 mmol/L 09/30/2025 6:45 PM EST [facility] Comment:Hemolyzed - Potassiu m may be falsely elevated by approximately 0.8-1.7 mmol/L. Chloride, Plasma 103 97 - 107 mmol/L 09/30/2025 6:45 PM EST [facility] CO2, Plasma 22 22 - 29 mmol/L 09/30/2025 6:45 PM EST [facility] Anion Gap 13 6 - 16 mmol/L 09/30/2025 6:45 PM EST [facility] Total Calcium, Plasma 9.0 8.9 - 10.2 mg/dL 09/30/2025 6:45 PM EST [facility] eGFRcr 68.2 mL/min/1.7 3m*2 09/30/2025 6:45 PM EST [facility] Comment:Reported eGFRcr in m L/min/1.73m2 is based the CKD-EPI 2020 equation that does not use a race coefficient. Blood Venous blood specimen / Unknown Venipuncture / Unknown 09/30/2025 5:24 PM EST 09/30/2025 6:15 PM EST us Karen Sommers MD LAB BLOOD ORDERABLES Final Res ult [facility] [address] [place] [address] documented in this encounter Visit Diagnoses Diagnosis PVD (peripheral vascular disease)- Primary Unspecified peripheral vascular disease Right lower lobe pulmonary nodule documented in this encounter Administered Medications Inactive Administered Medications - up to 3 most recent administrations Medication Order MAR Action Action Date Dose Rate Site iohexol (OMNIPaque) 350 MG/ML injection 200 mL 200 mL, Intravenous, Once in imaging, 1 dose, Starting on Tue09/30/25 at 1809, Until Tue09/30/25 at 2015, Routine, Imaging Protocol Orders Given 09/30/2025 8:15 PM EST 150 mL morphine PF 4 mg 4 mg, Intravenous, Once, 1 dose, On Tue09/30/25 at 1915, STAT Given 09/30/2025 7:25 PM EST 4 mg ondansetron (Zofran) injection 4 mg 4 mg, Intravenous, Once, 1 dose, On Tue09/30/25 at 1915, STAT Given 09/30/2025 7:25 PM EST 4 mg oxyCODONE (Roxicodone) immediate release tablet 5 mg 5 mg, Oral, Once, 1 dose, On Tue09/30/25 at 1720, STAT Given 09/30/2025 5:55 PM EST 5 mg documented in this encounter Active and Recently Administered Medications Times are shown in EST. Scheduled Medication Order 09/29/2025 09/30/2025 10/01/2025 iohexol (OMNIPaque) 350 MG/ML injection 200 mL (COMPLETED) 200 mL, Intravenous, Once in imaging, 1 dose, Starting on Tue09/30/25 at 1809, Until Tue09/30/25 at 2015, Routine, Imaging Protocol Orders 2014 (Given - Provider: Seng Carver) morphine PF 4 mg (COMPLETED) 4 mg, Intravenous, Once, 1 dose, On Tue09/30/25 at 1915, STAT 1925 (Given - Provider: Tresa Singh RN) morphine PF 4 mg 4 mg, Intravenous, Once, 1 dose, On Tue10/01/25 at 0015, STAT 0030 (Not Given - Provider: Tresa Singh RN - Reason: Patient/Family/Represent ative Refused) ondansetron (Zofran) injection 4 mg (COMPLETED) 4 mg, Intravenous, Once, 1 dose, On Tue09/30/25 at 1915, STAT 1925 (Given - Provider: Tresa Singh RN) oxyCODONE (Roxicodone) immediate release tablet 5 mg (COMPLETED) 5 mg, Oral, Once, 1 dose, On Tue09/30/25 at 1720, STAT 1755 (Given - Provider: Noy Gaitan RN) documented in this encounter Additional Health Concerns Assessment Noted Time A fall risk assessment has been complete d for the patient 10/31/2024 9:56 AM EST A Body Mass Index follow-up plan has been documented for the patient 10/31/2024 10:09 AM EST documented as of this encounter Care Teams Computational Mathematician Relationship Specialty Start Date End Date Jay Howell MD [address] [place] [id number] PCP - General 03/08/21 10/06/25 documented as of this encounter
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
--- NOTE | 2025-10-12 21:49 | CT_ITS ---
PROCEDURE INFORMATION: Exam: CTA Chest With Contrast Exam date and time: 10/12/2025 10:11 PM Age: 84 years old Clinical indication: Other: AMS; Additional info: AMS, unresponsive TECHNIQUE: Imaging protocol: Computed tomographic angiography of the chest with contrast. Exam focused on the arteries. 3D rendering (Not supervised by radiologist): MIP and/or 3D reconstructed images were created by the technologist. Total images: 620 Radiation optimization: All CT scans at this facility use at least one of these dose optimization techniques: automated exposure control; mA and/or kV adjustment per patient size (includes targeted exams where dose is matched to clinical indication); or iterative reconstruction. Contrast material: ISOUVE 370; Contrast volume: 70 ml; Contrast route: INTRAVENOUS (IV); COMPARISON: CT ANGIO CHEST 02/24/2025 11:52 AM FINDINGS: Pulmonary arteries: Adequate contrast opacification of the pulmonary arteries. Enlarged main pulmonary artery implying pulmonary arterial hypertension. No acute pulmonary emboli. Aorta: Severely atherosclerotic thoracic aorta without aneurysm or dissection. Veins: Contrast reflux into the IVC and hepatic veins. Lungs: The trachea and main bronchi are patent. The lungs are poorly expanded. Bilateral dependent atelectasis. Moderate to severe upper lobe predominant centrilobular emphysema. No focal airspace consolidation. Cannot exclude mild bibasilar pulmonary interstitial edema. Pleural spaces: Trace bilateral pleural effusions. No pneumothorax. Heart: Mild cardiomegaly. No pericardial effusion. Coronary arteries: Extensive coronary artery calcifications. Mediastinal space: No mediastinal mass or hematoma. Lymph nodes: No pathologically enlarged mediastinal lymph nodes. Densely calcified right hilar lymph nodes compatible with remote granulomatous disease. Intraperitoneal space: Upper abdominal findings described separately. Bones/joints: Status post median sternotomy. Osteopenia. Moderate degenerative changes of the thoracic spine. Remote compression deformity of the T6 vertebral body. Remote superior endplate depression of the T11 vertebral body. Soft tissues: Unremarkable. IMPRESSION: 1. No acute pulmonary emboli. 2. Moderate to severe upper lobe predominant centrilobular emphysema. 3. Bilateral dependent atelectasis. Cannot exclude mild bibasilar pulmonary interstitial edema. 4. Trace bilateral pleural effusions. 5. Stable mild cardiomegaly. 6. Contrast reflux into the IVC and hepatic veins implying component of right heart failure.
--- NOTE | 2025-10-12 21:49 | CT_ITS ---
PROCEDURE INFORMATION: Exam: CT Abdomen And Pelvis With Contrast Exam date and time: 10/12/2025 10:11 PM Age: 84 years old Clinical indication: Other: AMS; Additional info: AMS, unresponsive TECHNIQUE: Imaging protocol: Computed tomography of the abdomen and pelvis with contrast. 3D rendering (Not supervised by radiologist): MIP and/or 3D reconstructed images were created by the technologist. Total images: 679 Radiation optimization: All CT scans at this facility use at least one of these dose optimization techniques: automated exposure control; mA and/or kV adjustment per patient size (includes targeted exams where dose is matched to clinical indication); or iterative reconstruction. Contrast material: ISOVUE; Contrast volume: 75 ml; Contrast route: IV; COMPARISON: CT ANGIO ABDOMEN PELVIS 02/24/2025 11:52 AM FINDINGS: Liver: Heterogeneous liver attenuation with lobulated contours. No discrete mass. Gallbladder and biliary ducts: Status post cholecystectomy. Mild biliary ductal ectasia in keeping with post cholecystectomy status. Pancreas: Pancreatic atrophy. No acute pancreatitis. Spleen: Multiple splenic hypodensity/cyst. No splenomegaly. Adrenal glands: Normal. No mass. Kidneys and ureters: Poorly enhancing midpole right renal cortex from renal infarct, vasculitis, or pyelonephritis. No hydronephrosis or perinephric fluid. Multiple bilateral renal cortical cysts. Stomach and bowel: Unremarkable stomach. Multiple duodenal diverticulum. No ileus or bowel obstruction. Unremarkable small bowel. Moderate colonic stool burden. Mild sigmoid colonic wall thickening. Sigmoid diverticulosis. Collapsed rectum. Appendix: No evidence of appendicitis. Intraperitoneal space: Unremarkable. No free air. No significant fluid collection. Vasculature: Severe atherosclerotic vascular disease. Nonaneurysmal abdominal aorta. Severe atherosclerotic stenosis origin of the celiac artery and proximal superior mesenteric artery without downstream occlusion. Two main right renal arteries, both showing high-grade stenosis. Lymph nodes: Unremarkable. No enlarged lymph nodes. Urinary bladder: Garrido catheter in the urinary bladder. Reproductive: Status post hysterectomy. No adnexal mass. Bones/joints: Osteopenia. Partial laminectomy changes at L4 and L5. Intervertebral disc spacer L4-L5. Remote compression deformity L2 vertebral body. Osteopenia. Intramedullary pat left femur. Remote left intratrochanteric hip fracture. Right total hip arthroplasty. Soft tissues: Tiny fat containing umbilical hernia. IMPRESSION: 1. Liver morphology concerning for cirrhosis. 2. Poorly enhancing midpole right renal cortex. Differential includes: Renal infarct, vasculitis, or pyelonephritis. 3. Sigmoid colonic wall thickening from incomplete distension versus early colitis. No complicating features. Underlying sigmoid diverticulosis. 4. Extensive atherosclerotic vascular disease. 5. Bilateral renal cysts. 6. Multiple splenic cyst. 7. Additional chronic and incidental findings. COMMENTS: Consistent with the [employer]'s Incidental Findings Committee white paper (J Am Lefty Radiol 2018): Any incidental renal lesion less than 1 cm or classified as too small to characterize, or any incidental cystic renal lesion characterized as simple-appearing, is likely benign. No follow-up imaging is recommended for these lesions per consensus recommendations based on imaging criteria.
--- NOTE | 2025-10-12 21:49 | CT_ITS ---
PROCEDURE INFORMATION: Exam: CTA Neck With Contrast Exam date and time: 10/12/2025 10:04 PM Age: 84 years old Clinical indication: Stroke-like symptoms; Altered mental status/memory loss; Additional info: AMS, unresponsiveness TECHNIQUE: Imaging protocol: Computed tomographic angiography of the neck with contrast. Exam focused on the cervical segments of the vasculature. 3D rendering (Not supervised by radiologist): MIP and/or 3D reconstructed images were created by the technologist. Radiation optimization: All CT scans at this facility use at least one of these dose optimization techniques: automated exposure control; mA and/or kV adjustment per patient size (includes targeted exams where dose is matched to clinical indication); or iterative reconstruction. Contrast material: ISOUVE 370; Contrast volume: 80 ml; Contrast route: INTRAVENOUS (IV); COMPARISON: CT ANGIO NECK 06/25/2024 3:02 PM FINDINGS: Right common carotid artery: No stenosis. No dissection or occlusion. Right internal carotid artery: Moderate calcified plaque with up to 57% stenosis. No dissection or occlusion. Right external carotid artery: No occlusion or stenosis of the origin. Left common carotid artery: No stenosis. No dissection or occlusion. Left internal carotid artery: Moderate calcified plaque without no significant stenosis of the extracranial segment. No dissection or occlusion. Sternotomy wires. Left external carotid artery: No occlusion or stenosis of the origin. Right vertebral artery: No stenosis. No dissection or occlusion. Left vertebral artery: No stenosis. No dissection or occlusion. Soft tissues: Fat stranding and subcutaneous emphysema along the right lower neck/supraclavicular soft tissues (series 3, images 53-60) may represent prior vascular access. Bones/joints: No acute fracture. Chronic appearing T6 vertebral body compression fracture. No significant spinal canal stenosis. Lungs: Centrilobular and paraseptal emphysema. Bilateral lower lobe dependent atelectasis. Pleural spaces: Trace bilateral pleural effusions. IMPRESSION: 1. Moderate calcified plaque with up to 57% stenosis in the proximal right internal carotid artery. 2. Otherwise no significant stenosis or occlusion. REFERENCES: NASCET CRITERIA. The degree of stenosis in the cervical segment of the internal carotid artery is based on NASCET criteria. Normal is no stenosis. Mild is less than 50% stenosis. Moderate is 50-69% stenosis. Severe is 70% to 99% stenosis. Total occlusion is no detectable patent lumen.
--- NOTE | 2025-10-12 21:49 | CT_ITS ---
PROCEDURE INFORMATION: Exam: CTA Head With Contrast, Arteriography Exam date and time: 10/12/2025 10:04 PM Age: 84 years old Clinical indication: Stroke-like symptoms; Altered mental status/memory loss; Additional info: AMS, unresponsive TECHNIQUE: Imaging protocol: Computed tomographic angiography of the head with contrast. Exam focused on the arteries. 3D rendering (Not supervised by radiologist): MIP and/or 3D reconstructed images were created by the technologist. Radiation optimization: All CT scans at this facility use at least one of these dose optimization techniques: automated exposure control; mA and/or kV adjustment per patient size (includes targeted exams where dose is matched to clinical indication); or iterative reconstruction. Contrast material: ISOUVE 370; Contrast volume: 80 ml; Contrast route: INTRAVENOUS (IV); COMPARISON: CT ANGIO HEAD 06/25/2024 3:02 PM FINDINGS: ANTERIOR CIRCULATION: Right internal carotid artery: Moderate calcified plaque with mild stenosis in the cavernous segment. No aneurysm. Right middle cerebral artery: No occlusion or significant stenosis. No aneurysm. Right anterior cerebral artery: No occlusion or significant stenosis. No aneurysm. Left internal carotid artery: Moderate calcified plaque with mild stenosis in the cavernous segment. No aneurysm. Left middle cerebral artery: No occlusion or significant stenosis. No aneurysm. Left anterior cerebral artery: No occlusion or significant stenosis. No aneurysm. POSTERIOR CIRCULATION: Right vertebral artery: No occlusion or significant stenosis. No aneurysm. Left vertebral artery: No occlusion or significant stenosis. No aneurysm. Basilar artery: No occlusion or significant stenosis. No aneurysm. Right posterior cerebral artery: No occlusion or significant stenosis. No aneurysm. Left posterior cerebral artery: No occlusion or significant stenosis. No aneurysm. 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 There is patchy hypoattenuation in the deep and subcortical white matter, likely representing chronic small vessel ischemic change. No mass effect. No hemorrhage. Cerebral ventricles: No ventriculomegaly. Bones/joints: Unremarkable. No acute fracture. Soft tissues: Unremarkable. IMPRESSION: 1. Moderate calcified plaque with mild stenosis in the cavernous segment of the bilateral ICAs with good distal flow. 2. No significant stenosis, occlusion, or aneurysm.
--- NOTE | 2025-10-12 21:49 | CT_ITS ---
PROCEDURE INFORMATION: Exam: CT Head Without Contrast Exam date and time: 10/12/2025 10:02 PM Age: 84 years old Clinical indication: Stroke-like symptoms; Altered mental status/memory loss; Additional info: AMS, unresponsive TECHNIQUE: Imaging protocol: Computed tomography of the head without contrast. Radiation optimization: All CT scans at this facility use at least one of these dose optimization techniques: automated exposure control; mA and/or kV adjustment per patient size (includes targeted exams where dose is matched to clinical indication); or iterative reconstruction. Other technique: STROKE PROTOCOL was implemented. COMPARISON: CT HEAD/BRAIN WO CON 02/24/2025 11:44 AM FINDINGS: Brain: Age-related parenchymal atrophy with enlargement of the CSF spaces. There is patchy hypoattenuation in the deep and subcortical white matter, likely representing chronic small vessel ischemic change. Focal encephalomalacia in the left frontal and right cerebellar lobe likely from remote infarcts. No mass effect. No hemorrhage. Cerebral ventricles: No ventriculomegaly. Paranasal sinuses: Visualized sinuses are unremarkable. No fluid levels. Mastoid air cells: Visualized mastoid air cells are well aerated. Bones: Unremarkable. No acute fracture. Soft tissues: Unremarkable. IMPRESSION: No acute intracranial abnormality. ASSESSMENT: ASPECTS ([place] Stroke Program Early CT Score) is 10.
--- OUTSIDE RECORDS SUMMARY | 2025-10-12 21:52 | XMS_ITS | Encounter Summary ---
Author Organization [employer] ([place], [place], [place], [place], [place]) Address [address] [place] [address] Care Team Providers Care Balance Wheel Arm Burnisher Name Role Phone Jay Howell MD Primary Care Provider [phone] Encounter Details Date Type Department Care Team (Late st Contact Info) Description 03/16/2021 Transcribed Document [facility] Family Medicine [address] [place] [address] ProviderJessie MD [address] [place] [address] [phone] Social History Tobacco Use Types Packs/Day Years Used Date Smoking Tobacco: Never Assessed Comments Unknown Sex and Gender Information Value Date Recorded Sex Assigned at Not on file Legal Sex Female 7:30 PM CDT Gender Identity Not on file Sexual Orientation Not on file documented as of this encounter Miscellaneous Notes * Cerner Conversion Note - Jessie Yuen MD - 03/16/2021 5:39 PM CDT DATE OF [...] ALLERGIES: Macrobid and morphine. HOME MEDICATIONS: 1. Evans as needed. 2. Xanax as needed. 3. [...] Chart was reviewed. Time spent, 60 minutes. /[id number] Yasser Zohary, MD YZ/AQ / MCKAY / MODL CC: Dr. Avtar Moeller Electronically signed by [facility], [facility] Conversion Visual Merchandising Coordinator Cerner at 02/04/2023 2:22 PM CDT documented in this encounter Plan of Treatment Not on file documented as of this encounter Visit Diagnoses Not on filedocumented in this encounter Care Teams Balance Wheel Arm Burnisher Relationship Specialty Start Date End Date Jay Howell MD [address] [place] [phone] PCP - General Emergency Medicine 11/12/23 documented as of this encounter
--- OUTSIDE RECORDS SUMMARY | 2025-10-12 21:52 | XMS_ITS | Encounter Summary ---
Author Organization [employer] ([place], [place], [place], [place], [place]) Address [address] [place] [address] Care Team Providers Care Plastic Tool Maker Name Role Phone Jay Howell MD Primary Care Provider [phone] Encounter Details Date Type Department Care Team (Late st Contact Info) Description 03/18/2021 Transcribed Document [facility] [place] Family Medicine [address] [place] [address] ProviderJessie MD [address] [place], [place] [phone] Social History Tobacco Use Types Packs/Day Years [...] filedocumented in this encounter Care Teams Plastic Tool Maker Relationship Specialty Start Date End Date Jay Howell MD [address] [place] [phone] PCP - General Emergency Medicine 11/12/23 documented as of this encounter
--- OUTSIDE RECORDS SUMMARY | 2025-10-12 21:52 | XMS_ITS | Encounter Summary ---
Author Organization [employer] ([place], [place], [place], [place], [place]) Address [address] [place] [address] Care Team Providers Care Banquet Manager Name Role Phone Jay Howell MD Primary Care Provider [phone] Encounter Details Date Type Department Care Team (Late st Contact Info) Description 03/17/2021 Transcribed Document [facility] Cardiology [address] [place], [place] [phone] Jorje Bení[place] [address] [place] [address] [address] [place] [address] Social History Tobacco Use Types Packs/Day Years [...] MD - 03/17/2021 10:01 AM EDT Patient: MILADIS MONTOYA Age: 80 years Sex: Female : 1940 Associated Diagnoses: None Author: JORJE BENÍTEZ MD-CAR Basic Information Jazz Musician: Dr. Adry Dumas Chief Complaint Syncope History of Present Illness The patient is an unfortunate 80-year-old female with a known history atherosclerotic cardiovascular disease???status post coronary artery bypass grafting as well as multiple PCI's most recently 2018, hypertension, dyslipidemia, paroxysmal/persistent atrial fibrillation on chronic warfarin, history of carotid disease, anxiety, diabetes mellitus type 2, COPD, and DVT/pulmonary embolism who presented to [facility] after suffering a several episode at home. [...] Vitamins oral tablet 1 Tab, Oral, Daily [place] 7.5 mg-325 mg oral tablet 1 Tab, [...] Bedtime Problem list: All Problems Arthritis / 1681882 / Confirmed Atrial fibrillation with RVR / 4572730670 / Confirmed Blood clot / 367345418 / Confirmed Cataract / Confirmed Chest pain / 17844810 / Complaint of Clotting disorder / 561025699 / Confirmed COPD / 05172830 / Confirmed Coronary artery disease / 2239525195 / Confirmed Diabetes mellitus / 186609643 / Confirmed GERD - Gastro-esophageal reflux disease / 8981279076 / Confirmed Glaucoma / Confirmed Chronic anticoagulation / 307219102 / Confirmed Hx of pulmonary embolus / 627289105 / Confirmed High blood pressure / 95045753 / Confirmed History of obstructive sleep apnea / 08077649 / Confirmed Hyperlipidemia / 00727098 / Confirmed Multiple renal cysts / 338621032 / Confirmed Emphysema / 406677020 / Confirmed Apnea, sleep / 757631653 / Confirmed Stented coronary artery / 5691296248 / Confirmed Resolved: UTI - Urinary tract infection / 5622464781 Canceled: History of obstructive sleep apnea / 56239617 Histories No education data available. Social & [...] History: Active Cataract Glaucoma Coronary artery disease (6247907512) Stented coronary artery (1638851623) High blood pressure (20435559) Hyperlipidemia (81587095) COPD (15211521) GERD - Gastro-esophageal reflux disease (4355560427) Multiple renal cysts (311333994) Arthritis (8128077) Diabetes mellitus (238260004) Emphysema (089478406) Apnea, sleep (641552320) Hx of pulmonary embolus (565698957) Chronic anticoagulation (817466194) Atrial fibrillation with RVR (6805502381) Resolved UTI - Urinary tract infection (2388551671): Resolved. Family History: Cardiomyopathy Child Stroke Brother Heart attack Brother Sister Leukemia Child Cancer Father Mother Sister Coronary heart disease Child Procedure history: Cardiac Stent on 12/20/2018 at 77 Years. Comments: 03/17/2021 9:03 EVA LAWS RN HARVINDER to LAD Cardiac Stent in 2010 at 70 Years. Cardiac Stent on 01/30/2008 at 67 Years. Comments: 06/13/2020 8:52 EVA LAWS RN PCI w/ [place] stent to D1 Coronary artery bypass graft (494696104) in 1992 at 52 Years. Appendectomy (130509548). back surgury. cataract surgury. Cholecystectomy (46252557). femur repair. Hip replacement (8918405998). Hysterectomy (941018378). uterine suspension. Physical Examination VS/Measurements Vitals Signs (last 24 hrs) Last Charted Minimum Maximum Temp 98.7 (MAR 17 06:26) 97.3 (MARCH 16:32) 98.7 (MAR 17 06:) Apical HR 82 (MAR 17 06:34) 82 [...] (Current Encounter/Past 24 Hours) ProBNP 576 pg/mL DE 03/17/2021 04:45 Blood Gases (Current Encounter/Past 24 Hours) No Blood Gas Results Found (Past 24 Hours) Radiology Results (Last 48 hours) [id number] -- 03/16/2021 15:29 CR Hip Uni Comp [...] filedocumented in this encounter Care Teams Banquet Manager Relationship Specialty Start Date End Date Jay Howell MD [address] [place] [phone] PCP - General Emergency Medicine 11/12/23 documented as of this encounter
--- OUTSIDE RECORDS SUMMARY | 2025-10-12 21:52 | XMS_ITS | Encounter Summary ---
Author Organization [employer] ([place], [place], [place], [place], [place]) Address [address] [place] [address] Care Team Providers Care Bobbin Disker Name Role Phone Jay Howell MD Primary Care Provider [phone] Encounter Details Date Type Department Care Team (Late st Contact Info) Description 03/17/2021 Transcribed Document [facility] [place] [address] [place] [address] ProviderJessie MD [address] [place], [place] 660821 Social History Tobacco Use Types Packs/Day Years [...] PHYSICAL THERAPIST NON-EXEMPT - 03/18/2021 12:18 EDT Snf Goals Mobility/Bed Mobility LTG PT Grid Goal [...] on filedocumented in this encounter Care Teams Bobbin Disker Relationship Specialty Start Date End Date Jay Howell MD [address] [place] [phone] PCP - General Emergency Medicine 11/12/23 documented as of this encounter
--- OUTSIDE RECORDS SUMMARY | 2025-10-12 21:52 | XMS_ITS | Encounter Summary ---
Author Organization [employer] ([place], [place], [place], [place], [place]) Address [address] [place] [address] Care Team Providers Care Mathematical Physicist Name Role Phone Jay Howell MD Primary Care Provider [phone] Encounter Details Date Type Department Care Team (Late st Contact Info) Description 03/17/2021 Transcribed Document [facility] Family Medicine [address] [place] [address] ProviderJessie MD [address] [place], [place] 173451 Social History Tobacco Use Types Packs/Day Years Used Date Smoking Tobacco: Never Assessed Comments Unknown Sex and Gender Information Value Date Recorded Sex Assigned at Not on file Legal Sex Female 7:30 PM CDT Gender Identity Not on file Sexual Orientation Not on file documented as of this encounter Miscellaneous Notes * Cerner Conversion Note - Jessie ProviderMD - 03/17/2021 2:00 AM CDT Fire Apparatus Sprinkler Inspector Details Entered On: 03/17/2021 3:32 EDT Performed [...] - 03/17/2021 3:32 EDT Electronically signed by Sivan, [facility] Conversion Nitric Acid Plant Operator Cerner at 02/04/2023 2:22 PM CDT documented in this encounter Plan of Treatment Not on file documented as of this encounter Visit Diagnoses Not on filedocumented in this encounter Care Teams Mathematical Physicist Relationship Specialty Start Date End Date Jay Howell MD [address] [place] [phone] PCP - General Emergency Medicine 11/12/23 documented as of this encounter
--- OUTSIDE RECORDS SUMMARY | 2025-10-12 21:52 | XMS_ITS | Encounter Summary ---
Author Organization [employer] ([place], [place], [place], [place], [place]) Address [address] [place] [address] Care Team Providers Care Nuclear Supervising Operator Name Role Phone Jay Howell MD Primary Care Provider [phone] Encounter Details Date Type Department Care Team (Late st Contact Info) Description 08/25/2020 Transcribed Document [facility] Family Medicine [address] [place] [address] ProviderJessie MD [address] [place] [address] Social History Tobacco Use Types Packs/Day Years Used Date Smoking Tobacco: Never Assessed Comments Unknown Sex and Gender Information Value Date Recorded Sex Assigned at Not on file Legal Sex Female 7:30 PM CDT Gender Identity Not on file Sexual Orientation Not on file documented as of this encounter Miscellaneous Notes * Cerner Conversion Note - Jessie Yuen MD - 08/25/2020 10:53 AM SURGICAL GARMENT ASSEMBLY SUPERVISOR DATE OF CONSULTATION: 08/25/2020 INFECTIOUS DISEASE [...] you for asking us to see Ms. Montyoa. I recommend the followin. Daptomycin IV. 2. [...] team following as above. Discussed with them. /[id number] MD VANESSA Campa/NABOR / VANESAS / MODL /[id number] CC: MD David Campa MD Electronically signed by [facility], [facility] Conversion Appointment Clerk Cerner at 02/04/2023 2:05 PM CDT documented in this encounter Plan of Treatment Not on file documented as of this encounter Visit Diagnoses Not on filedocumented in this encounter Care Teams Nuclear Supervising Operator Relationship Specialty Start Date End Date Jay Howell MD [address] [place] [phone] PCP - General Emergency Medicine 11/12/23 documented as of this encounter
--- OUTSIDE RECORDS SUMMARY | 2025-10-12 21:52 | XMS_ITS | Encounter Summary ---
Author Organization [employer] ([place], [place], [place], [place], [place]) Address [address] [place] [address] Care Team Providers Care Concrete Polisher Name Role Phone Jay Howell MD Primary Care Provider [phone] Encounter Details Date Type Department Care Team (Late st Contact Info) Description 03/17/2021 Transcribed Document [facility] Radiology [address] [place] [address] Samantha Guzman MD [facility] [place] [address] Social History Tobacco Use Types Packs/Day Years [...] Vitamins oral tablet, 1 Tab, Oral, Daily [place] 7.5 mg-325 mg oral tablet, 1 Tab, [...] Lymph # 1.52 x10(3)/uL 03/16/2021 11:38 EDT [place] % 5.1 % 03/16/2021 11:38 EDT [place] # 0.50 K/uL 03/16/2021 11:38 EDT Eos [...] Appearance CLEAR2 03/16/2021 14:09 EDT Urine Specific [place] 1.015 03/17/2021 04:10 EDT Urine Specific [place] 1.014 03/16/2021 14:09 EDT Urine pH Dipstick [...] [1] History and Physical; MARIA ELENA DAVALOS MD-[facility] 03/16/2021 17:39 EDT [2] CR Wrist Min 3 Vws RT; Roni Guerra, Big Data Admin 03/16/2021 12:13 EDT documented in this encounter Plan of Treatment Not on file documented as of this encounter Visit Diagnoses Not on filedocumented in this encounter Care Teams Concrete Polisher Relationship Specialty Start Date End Date Jay Howell MD [address] [place] [phone] PCP - General Emergency Medicine 11/12/23 documented as of this encounter
--- OUTSIDE RECORDS SUMMARY | 2025-10-12 21:52 | XMS_ITS | Encounter Summary ---
Author Organization [employer] ([place], [place], [place], [place], [place]) Address [address] [place] [address] Care Team Providers Care Sample Sawyer Name Role Phone Jay Howell MD Primary Care Provider [phone] Encounter Details Date Type Department Care Team (Late st Contact Info) Description 08/29/2020 Transcribed Document [facility] Family Medicine [address] [place] [address] ProviderJessie MD [address] [place] [address] [phone] Social History Tobacco Use Types Packs/Day Years Used Date Smoking Tobacco: Never Assessed Comments Unknown Sex and Gender Information Value Date Recorded Sex Assigned at Not on file Legal Sex Female 7:30 PM CDT Gender Identity Not on file Sexual Orientation Not on file documented as of this encounter Miscellaneous Notes * Cerner Conversion Note - Jessie ProviderMD - 08/29/2020 2:00 AM SEWING MACHINE REPAIRER HELPER Education Sales Consultant Details Entered On: 08/29/2020 6:08 EST Performed [...] Kervin Kulkarni RN - 08/29/2020 6:07 EST documented in this encounter Plan of Treatment Not on file documented as of this encounter Visit Diagnoses Not on filedocumented in this encounter Care Teams Sample Sawyer Relationship Specialty Start Date End Date Jay Howell MD [address] [place] [phone] PCP - General Emergency Medicine 11/12/23 documented as of this encounter
--- OUTSIDE RECORDS SUMMARY | 2025-10-12 21:52 | XMS_ITS | Encounter Summary ---
Author Organization [employer] ([place], [place], [place], [place], [place]) Address [address] [place] [address] Care Team Providers Care Exhauster Name Role Phone Jay Howell MD Primary Care Provider [phone] Encounter Details Date Type Department Care Team (Late st Contact Info) Description 03/16/2021 Transcribed Document [facility] Family Medicine [address] [place] [address] ProviderJessie MD [address] [place], [place] 2[address] Social History Tobacco Use Types Packs/Day Years Used Date Smoking Tobacco: Never Assessed Comments Unknown Sex and Gender Information Value Date Recorded Sex Assigned at Not on file Legal Sex Female 7:30 PM CDT Gender Identity Not on file Sexual Orientation Not on file documented as of this encounter Miscellaneous Notes * Cerner Conversion Note - Jessie ProviderMD - 03/16/2021 3:31 PM CDT Admission [...] Ambulatory Legal Guardian : Spouse Support Person/Patient Licensed Weigher : Yes Support Person/Pt Rep Name : Willard Contact Password : Marvin Support Person/Pt Rep Contact Information : [phone] Want Family/Rep/Phys Notified of Admit : No [...] Obtained From : Patient Primary Language : Nigerian Preferred Communication Mode : Verbal Communication Barrier : None Head Custodian Needed : No VALERIA DOAN RN - [...] Level : 46 or > High Risk Sproul Fall Interventions : Adequate lighting, Assistive devices [...] Source : Stated Height Entry Format : [place] Height, Feet : 5 ft(Converted to: 152 cm, 60 Inch) Height, Inches : 3 Inch(Converted to: 0 ft 3 Inch, 7.62 cm) Clinical Height : 160.02 cm Weight Source : Standing scale Weight Entry Format : [place] Clinical Dosing Weight : 71.82 kg Weight, Pounds : 158 lb Body Surface Area (BSA) : 1.75 m2 Body Mass Index : 28 kg/m2 (HI) [place] Body Weight : 52 kg VALERIA DOAN [...] VALERIA DOAN RN - 03/16/2021 18:52 EDT [place] Suicide Severity Rating Scale (C-SSRS) CSSRS Past [...] on filedocumented in this encounter Care Teams Exhauster Relationship Specialty Start Date End Date Jay Howell MD [address] [place] [phone] PCP - General Emergency Medicine 11/12/23 documented as of this encounter
--- OUTSIDE RECORDS SUMMARY | 2025-10-12 21:52 | XMS_ITS | Encounter Summary ---
Author Organization [employer] ([place], [place], [place], [place], [place]) Address [address] [place] [address] Care Team Providers Care Drive Thru Order Taker Name Role Phone Jay Howell MD Primary Care Provider [phone] Encounter Details Date Type Department Care Team (Late st Contact Info) Description 08/29/2020 Transcribed Document [facility] Family Medicine [address] [place] [address] ProviderJessie MD [address] [place] [phone] Social History Tobacco Use Types Packs/Day Years Used Date Smoking Tobacco: Never Assessed Comments Unknown Sex and Gender Information Value Date Recorded Sex Assigned at Not on file Legal Sex Female 7:30 PM CDT Gender Identity Not on file Sexual Orientation Not on file documented as of this encounter Miscellaneous Notes * Cerner Conversion Note - Jessie Yuen MD - 08/29/2020 2:44 PM BANK TELLER MACHINE MECHANIC Final Discharge Planning Entered On: 08/29/2020 14:44 EST Performed On: 08/29/2020 14:44 EST by KAVITA PELLETIER RN-Fish Technologist Final Discharge Planning Discharge Arrangements : Patient Post-Acute Information Patient Name: SKYLER MONTOYA Gender: Female : [birth year] Age: 79 Years No Post-Acute Placement(s) Listed No Post-Acute Service(s) Listed No [place] Referral(s) Listed Patient Offered Choice/Affiliations Explained : Yes Important Medicare Message Reviewed With : Patient Important Medicare Message Reviewed D/T : 08/29/2020 9:00 EST KAVITA PELLETIER RN-Fish Technologist - 08/29/2020 14:44 EST Electronically signed by Interface, [facility] Conversion Staff Toxicologist Cerner at 02/04/2023 1:55 PM CDT documented in this encounter Plan of Treatment Not on file documented as of this encounter Visit Diagnoses Not on filedocumented in this encounter Care Teams Drive Thru Order Taker Relationship Specialty Start Date End Date Jay Howell MD [address] [place] [phone] PCP - General Emergency Medicine 11/12/23 documented as of this encounter
--- OUTSIDE RECORDS SUMMARY | 2025-10-12 21:52 | XMS_ITS | Encounter Summary ---
Author Organization [employer] ([place], [place], [place], [place], [place]) Address [address] [place] [address] Care Team Providers Care Mortgage Loan Counselor Name Role Phone Jay Howell MD Primary Care Provider [phone] Encounter Details Date Type Department Care Team (Late st Contact Info) Description 03/17/2021 Transcribed Document [facility] Family Medicine [address] [place] [address] ProviderJessie MD [address] [place], [place] [address] Social History Tobacco Use Types Packs/Day Years Used Date Smoking Tobacco: Never Assessed Comments Unknown Sex and Gender Information Value Date Recorded Sex Assigned at Not on file Legal Sex Female 7:30 PM CDT Gender Identity Not on file Sexual Orientation Not on file documented as of this encounter Miscellaneous Notes * Cerner Conversion Note - Jessie ProviderMD - 03/17/2021 9:00 AM CDT Consult [...] in this encounter Care Teams Mortgage Loan Counselor Relationship Specialty Start Date End Date Jay Howell MD [address] [place] [phone] PCP - General Emergency Medicine 11/12/23 documented as of this encounter
--- OUTSIDE RECORDS SUMMARY | 2025-10-12 21:52 | XMS_ITS | Encounter Summary ---
Author Organization Identified ([place], [place], [place], [place], [place]) Address [address] [place] [address] Care Team Providers Care Solution Coordinator Name Role Phone Jay Howell MD Primary Care Provider [phone] Encounter Details Date Type Department Care Team (Late st Contact Info) Description 03/17/2021 Transcribed Document [facility] [place] [place] Family Medicine [address] [place] [address] ProviderJessie MD [address] [place] [address] [phone] Social History Tobacco Use Types Packs/Day Years [...] on filedocumented in this encounter Care Teams Solution Coordinator Relationship Specialty Start Date End Date Jay Howell MD [address] [place] [phone] PCP - General Emergency Medicine 11/12/23 documented as of this encounter
--- OUTSIDE RECORDS SUMMARY | 2025-10-12 21:52 | XMS_ITS | Encounter Summary ---
Author Organization [employer] ([place], [place], [place], [place], [place]) Address [address] [place] [address] Care Team Providers Care Cancer Program Director Name Role Phone Jay Howell MD Primary Care Provider [phone] Encounter Details Date Type Department Care Team (Late st Contact Info) Description 03/17/2021 Transcribed Document [facility] [place] Family Medicine [address] [place] [address] ProvidereJssie MD [address] [place], [place] 818121 Social History Tobacco Use Types Packs/Day Years Used Date Smoking Tobacco: Never Assessed Comments Unknown Sex and Gender Information Value Date Recorded Sex Assigned at Not on file Legal Sex Female 7:30 PM CDT Gender Identity Not on file Sexual Orientation Not on file documented as of this encounter Miscellaneous Notes * Cerner Conversion Note - Jessie ProviderMD - 03/17/2021 2:00 PM CDT Pain [...] 03/17/2021 17:25 EDT Electronically signed by Sivan [facility] Conversion Wet Washer Machine Cerner at 02/04/2023 2:10 PM CDT documented in this encounter Plan of Treatment Not on file documented as of this encounter Visit Diagnoses Not on filedocumented in this encounter Care Teams Cancer Program Director Relationship Specialty Start Date End Date Jay Howell MD [address] [place] [phone] PCP - General Emergency Medicine 11/12/23 documented as of this encounter
--- OUTSIDE RECORDS SUMMARY | 2025-10-12 21:52 | XMS_ITS | Encounter Summary ---
Author Organization [employer] ([place], [place], [place], [place], [place]) Address [address] [place] [address] Care Team Providers Care Chemical Lab Technician Name Role Phone Jay Howell MD Primary Care Provider [phone] Encounter Details Date Type Department Care Team (Late st Contact Info) Description 08/29/2020 Transcribed Document [facility] [place] Family Medicine [address] [place] [address] ProviderJessie MD [address] [place] [address] [phone] Social History Tobacco Use Types Packs/Day Years Used Date Smoking Tobacco: Never Assessed Comments Unknown Sex and Gender Information Value Date Recorded Sex Assigned at Not on file Legal Sex Female 7:30 PM CDT Gender Identity Not on file Sexual Orientation Not on file documented as of this encounter Miscellaneous Notes * Cerner Conversion Note - Jessie ProviderMD - 08/29/2020 2:50 PM ACTION FINISHER WOCN Inpatient Documentation Entered On: 08/29/2020 14:52 [...] Ulcer WOCN Wound Pressure Ulcer Documentation : [id number]-[id number]-Zrjs Abnormality: Leg Left Lower, Anterior on 08/29/2020 [...] HOLDEN HESS RN - 08/29/2020 14:50 EST Electronically signed by Abel Finnegan Conversion Plant And Maintenance Technician Cerner at 02/04/2023 2:10 PM CDT documented in this encounter Plan of Treatment Not on file documented as of this encounter Visit Diagnoses Not on filedocumented in this encounter Care Teams Chemical Lab Technician Relationship Specialty Start Date End Date Jay Howell MD [address] [place] [phone] PCP - General Emergency Medicine 11/12/23 documented as of this encounter
--- OUTSIDE RECORDS SUMMARY | 2025-10-12 21:52 | XMS_ITS | Encounter Summary ---
Author Organization [employer] ([place], [place], [place], [place], [place]) Address [address] [place] [address] Care Team Providers Care Binder And Box Builder Name Role Phone Jay Howell MD Primary Care Provider [phone] Encounter Details Date Type Department Care Team (Late st Contact Info) Description 08/30/2020 Transcribed Document [facility] [place] [address] [place] [address] ProviderJessie MD [address] [place] [address] Social History Tobacco Use Types Packs/Day Years Used Date Smoking Tobacco: Never Assessed Comments Unknown Sex and Gender Information Value Date Recorded Sex Assigned at Not on file Legal Sex Female 7:30 PM CDT Gender Identity Not on file Sexual Orientation Not on file documented as of this encounter Miscellaneous Notes * Cerner Conversion Note - Jessie Yuen MD - 08/30/2020 8:14 AM LAW FIRM PARTNER Patient: SKYLER MONTOYA Age: 79 years Sex: [...] mg, 6 mL, 112 mL/Hr, IV Piggyback, P50EQid DuoNeb 0.5 mg-2.5 mg/3 mL inhalation solution: [...] Tab, Oral, Daily, 30 Tab, 0 Refill(s) [place] 7.5 mg-325 mg oral tablet: 1 Tab, [...] mL 300 mg 6 mL, IV Piggyback, Y85EXyw dorzolamide 2% ophth soln 10 mL 1 [...] Confirmed Coronary artery disease / SNOMED CT 5321305655 / Confirmed Stented coronary artery / SNOMED CT 4235366532 / Confirmed High blood pressure / SNOMED CT 19463649 / Confirmed Hyperlipidemia / SNOMED CT 82435603 / Confirmed COPD / SNOMED CT 06555067 / Confirmed GERD - Gastro-esophageal reflux disease / SNOMED CT 1679738515 / Confirmed Multiple renal cysts / SNOMED CT 844366591 / Confirmed Arthritis / SNOMED CT 1281783 / Confirmed Diabetes mellitus / SNOMED CT 418269913 / Confirmed Emphysema / SNOMED CT 578934131 / Confirmed Apnea, sleep / SNOMED CT 965209409 / Confirmed Hx of pulmonary embolus / SNOMED CT 501284523 / Confirmed Chronic anticoagulation / SNOMED CT 759730984 / Confirmed Atrial fibrillation with RVR / SNOMED CT 7813639384 / Confirmed Chest pain / SNOMED CT 03195511 / Complaint of History of obstructive sleep apnea / IMO 27033129 / Confirmed, Active Problems (20) Apnea, sleep [...] 10) 9.1 (NOV 09) Lactic 1.8 (NOV 09) C 2.3 (NOV 09) C 2.1 (NOV 09) PT H 13.8 (NOV 14) H 15.6 (NOV 13) H 17.8 (NOV 12) H 23.1 (NOV 11) INR H 1.3 (NOV 14) H 1.5 (NOV 13) H 1.7 (NOV 12) H 2.2 (NOV 11) AST 29 (NOV 09) ALT 32 (NOV 09) ALK P 63 (AUG 25) T Bili [...] days based on INR Electronically signed by Sivan, [facility] Conversion School Bus Inspector Cerner at 02/04/2023 2:10 PM CDT documented in this encounter Plan of Treatment Not on file documented as of this encounter Visit Diagnoses Not on filedocumented in this encounter Care Teams Binder And Box Builder Relationship Specialty Start Date End Date Jay Howell MD [address] [place] [phone] PCP - General Emergency Medicine 11/12/23 documented as of this encounter
--- OUTSIDE RECORDS SUMMARY | 2025-10-12 21:52 | XMS_ITS | Encounter Summary ---
Author Organization [employer] ([place], [place], [place], [place], [place]) Address [address] [place] [address] Care Team Providers Care Tube Teller Name Role Phone Jay Howell MD Primary Care Provider [phone] Encounter Details Date Type Department Care Team (Late st Contact Info) Description 03/16/2021 Transcribed Document [facility] [place] [address] [place] [address] ProviderJessie MD [address] [place], [place] [phone] Social History Tobacco Use Types Packs/Day Years Used Date Smoking Tobacco: Never Assessed Comments Unknown Sex and Gender Information Value Date Recorded Sex Assigned at Not on file Legal Sex Female 7:30 PM CDT Gender Identity Not on file Sexual Orientation Not on file documented as of this encounter Miscellaneous Notes * Cerner Conversion Note - Jessie ProviderMD - 03/16/2021 6:14 PM CDT Meds [...] filedocumented in this encounter Care Teams Tube Teller Relationship Specialty Start Date End Date Jay Howell MD [address] [place] [phone] PCP - General Emergency Medicine 11/12/23 documented as of this encounter
--- OUTSIDE RECORDS SUMMARY | 2025-10-12 21:52 | XMS_ITS | Encounter Summary ---
Author Organization [employer] ([place], [place], [place], [place], [place]) Address [address] [place] [address] Care Team Providers Care Aircraft Cleaner Name Role Phone Jay Howell MD Primary Care Provider [phone] Encounter Details Date Type Department Care Team (Late st Contact Info) Description 03/17/2021 Transcribed Document [facility] [place] Family Medicine [address] [place] [address] ProviderJessie MD [address] [place], [place] 660741 Social History Tobacco Use Types Packs/Day Years [...] pain. SOCIAL HISTORY: The patient lives in [place] with her . She has 3 children, 2 of whom are living. 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 She still drives and walks independently. FAMILY [...] are 0 to 1+. Coordination shows intact bqiojf-nm-ovxz on the left and uuga-mc-mbtw on both sides. Gait was not tested. [...] her . I will follow with you. /[id number] Arron Clarke MD WSB/AQ / WSB / MODL /[id number] Electronically signed by Sivan [facility] Conversion Clinical Implementation Specialist Cerner at 02/04/2023 2:15 PM CDT documented in this encounter Plan of Treatment Not on file documented as of this encounter Visit Diagnoses Not on filedocumented in this encounter Care Teams Aircraft Cleaner Relationship Specialty Start Date End Date Jay Howell MD [address] [place] [phone] PCP - General Emergency Medicine 11/12/23 documented as of this encounter
--- OUTSIDE RECORDS SUMMARY | 2025-10-12 21:52 | XMS_ITS | Encounter Summary ---
Author Organization [employer] ([place], [place], [place], [place], [place]) Address [address] [place] [address] Care Team Providers Care Corduroy Cutting Supervisor Name Role Phone Jay Howell MD Primary Care Provider [phone] Encounter Details Date Type Department Care Team (Late st Contact Info) Description 03/17/2021 Transcribed Document [facility] [place] Family Medicine [address] [place] [address] ProviderJessie MD [address] [place], [place] [address]301 Social History Tobacco Use Types Packs/Day Years [...] - 03/17/2021 12:33 EDT Electronically signed by [facility], [facility] Conversion Television Newscast Director Cerner at 02/04/2023 1:58 PM CDT documented in this encounter Plan of Treatment Not on file documented as of this encounter Visit Diagnoses Not on filedocumented in this encounter Care Teams Corduroy Cutting Supervisor Relationship Specialty Start Date End Date Jay Howell MD [address] [place] [phone] PCP - General Emergency Medicine 11/12/23 documented as of this encounter
--- OUTSIDE RECORDS SUMMARY | 2025-10-12 21:52 | XMS_ITS | Encounter Summary ---
Author Organization [employer] ([place], [place], [place], [place], [place]) Address [address] [place] [address] Care Team Providers Care Double End Chucking Machine Operator Name Role Phone Jay Howell MD Primary Care Provider [phone] Encounter Details Date Type Department Care Team (Late st Contact Info) Description 08/25/2020 Transcribed Document [facility] [place] Family Medicine [address] [place] [address] ProviderJessie MD [address] [place] [address] [phone] Social History Tobacco Use Types Packs/Day Years Used Date Smoking Tobacco: Never Assessed Comments Unknown Sex and Gender Information Value Date Recorded Sex Assigned at Not on file Legal Sex Female 7:30 PM CDT Gender Identity Not on file Sexual Orientation Not on file documented as of this encounter Miscellaneous Notes * Cerner Conversion Note - Jessie ProviderMD - 08/25/2020 4:33 AM RECRUITER MANAGER ED Triage Entered On: 08/25/2020 4:45 [...] : 3 - Urgent Tracking Group : [facility] ED Deisi Vasquez RN - 08/25/2020 4:41 [...] Estimated Onset Date: Unspecified ; Created By: EKNYON CHAMBERS RN; Reaction Status: Active ; Category: [...] 04:45:44 EST) Problems(Active) Apnea, sleep (SNOMED CT :630524548 ) Name of Problem: Apnea, sleep ; Recorder: JUAN LUIS GIL RN; Confirmation: Confirmed ; Classification: Medical ; Code: [id number] ; Contributor System: PowerChart ; Last Updated: 11/12/2014 10:12 EST ; Life Cycle Date: 11/12/2014 ; Life Cycle Status: Active ; Vocabulary: SNOMED CT Arthritis (SNOMED CT :8370000 ) Name of Problem: Arthritis ; Recorder: KENYON CHAMBERS RN; Confirmation: Confirmed ; Classification: Medical ; Code: 4139616 ; Contributor System: PowerChart ; Last Updated: 04/10/2016 8:04 EDT ; Life Cycle Date: 08/13/2013 ; Life Cycle Status: Active ; Vocabulary: SNOMED CT Atrial fibrillation with RVR (SNOMED CT :8374176947 ) Name of Problem: Atrial fibrillation with RVR ; Recorder: SANG RICO APRN; Confirmation: Confirmed ; Classification: Medical ; Code: 3858700445 ; Contributor System: PowerChart ; Last Updated: 04/10/2016 8:05 EDT ; Life Cycle Date: 04/10/2016 ; Life Cycle Status: Active ; Responsible Provider: SANG RICO APRN; Vocabulary: SNOMED CT Blood clot (SNOMED CT :415796867 ) Name of Problem: Blood clot ; Recorder: KENYON CHAMBERS RN; Confirmation: Confirmed ; Classification: Patient Stated ; Code: 144334350 ; Contributor System: PowerChart ; Last Updated: [...] Vocabulary: Patient Care Chest pain (SNOMED CT :69185528 ) Name of Problem: Chest pain ; Recorder: SANG RICO APRN; Confirmation: Complaint of ; Classification: Medical ; Code: 44307699 ; Contributor System: PowerChart ; Last Updated: 04/10/2016 8:05 EDT ; Life Cycle Status: Active ; Responsible Provider: SANG RICO APRN; Vocabulary: SNOMED CT Chronic anticoagulation (SNOMED CT :333518363 ) Name of Problem: Chronic anticoagulation ; Recorder: SANG RICO APRN; Confirmation: Confirmed ; Classification: Medical ; Code: 092853673 ; Contributor System: PowerChart ; Last Updated: 04/10/2016 8:05 EDT ; Life Cycle Date: 04/10/2016 ; Life Cycle Status: Active ; Responsible Provider: SANG RICO APRN; Vocabulary: SNOMED CT Clotting disorder (SNOMED CT :890962230 ) Name of Problem: Clotting disorder ; Recorder: KENYON CHAMBERS RN; Confirmation: Confirmed ; Classification: Patient Stated ; Code: 496141928 ; Contributor System: PowerChart ; Last Updated: 03/28/2014 19:29 EDT ; Life Cycle Date: 08/13/2013 ; Life Cycle Status: Active ; Vocabulary: SNOMED CT COPD (SNOMED CT :56354231 ) Name of Problem: COPD ; Recorder: KENYON CHAMBERS RN; Confirmation: Confirmed ; Classification: Medical ; Code: 53576645 ; Contributor System: PowerChart ; Last Updated: 04/10/2016 8:03 EDT ; Life Cycle Date: 08/13/2013 ; Life Cycle Status: Active ; Vocabulary: SNOMED CT Coronary artery disease (SNOMED CT :0754469837 ) Name of Problem: Coronary artery disease ; Recorder: KENYON CHAMBERS RN; Confirmation: Confirmed ; Classification: Medical ; Code: 8527973244 ; Contributor System: PowerChart ; Last Updated: 04/10/2016 8:03 EDT ; Life Cycle Date: 08/13/2013 ; Life Cycle Status: Active ; Vocabulary: SNOMED CT Diabetes mellitus (SNOMED CT :179418115 ) Name of Problem: Diabetes mellitus ; Recorder: KENYON CHAMBERS RN; Confirmation: Confirmed ; Classification: Medical ; Code: 765003623 ; Contributor System: PowerChart ; Last Updated: 04/10/2016 8:04 EDT ; Life Cycle Date: 08/13/2013 ; Life Cycle Status: Active ; Vocabulary: SNOMED CT Emphysema (SNOMED CT :166221433 ) Name of Problem: Emphysema ; Recorder: JUAN LUIS GIL RN; Confirmation: Confirmed ; Classification: Medical ; Code: 862790836 ; Contributor System: PowerChart ; Last Updated: 11/12/2014 10:11 EST ; Life Cycle Date: 11/12/2014 ; Life Cycle Status: Active ; Vocabulary: SNOMED CT GERD - Gastro-esophageal reflux disease (SNOMED CT :4574492647 ) Name of Problem: GERD - Gastro-esophageal reflux disease ; Recorder: KENYON CHAMBERS RN; Confirmation: Confirmed ; Classification: Medical ; Code: 9084678013 ; Contributor System: PowerChart ; Last Updated: [...] Patient Care High blood pressure (SNOMED CT :85876341 ) Name of Problem: High blood pressure ; Recorder: KENYON CHAMBERS RN; Confirmation: Confirmed ; Classification: Medical ; Code: 58106434 ; Contributor System: PowerChart ; Last Updated: 04/10/2016 8:03 EDT ; Life Cycle Date: 08/13/2013 ; Life Cycle Status: Active ; Vocabulary: SNOMED CT History of obstructive sleep apnea (IMO :53608488 ) Name of Problem: History of obstructive sleep apnea ; Recorder: SYSTEM, SYSTEM; Confirmation: Confirmed ; Classification: Medical ; Code: 56581674 ; Last Updated: 12/20/2018 12:01 EST ; Life Cycle Date: 12/20/2018 ; Life Cycle Status: Active ; Vocabulary: IMO Hx of pulmonary embolus (SNOMED CT :754596598 ) Name of Problem: Hx of pulmonary embolus ; Recorder: SANG RICO APRN; Confirmation: Confirmed ; Classification: Medical ; Code: 360897649 ; Contributor System: PowerChart ; Last Updated: 04/10/2016 8:05 EDT ; Life Cycle Date: 04/10/2016 ; Life Cycle Status: Active ; Responsible Provider: SANG RICO APRN; Vocabulary: SNOMED CT Hyperlipidemia (SNOMED CT :26897892 ) Name of Problem: Hyperlipidemia ; Recorder: KENYON CHAMBERS RN; Confirmation: Confirmed ; Classification: Medical ; Code: 49348474 ; Contributor System: PowerChart ; Last Updated: 04/10/2016 8:03 EDT ; Life Cycle Date: 08/13/2013 ; Life Cycle Status: Active ; Vocabulary: SNOMED CT Multiple renal cysts (SNOMED CT :660288961 ) Name of Problem: Multiple renal cysts ; Recorder: KENYON CHAMBERS RN; Confirmation: Confirmed ; Classification: Medical ; Code: 506635346 ; Contributor System: PowerChart ; Last Updated: 04/10/2016 8:04 EDT ; Life Cycle Date: 08/13/2013 ; Life Cycle Status: Active ; Vocabulary: SNOMED CT Stented coronary artery (SNOMED CT :3462468350 ) Name of Problem: Stented coronary artery ; Recorder: KENYON CHAMBERS RN; Confirmation: Confirmed ; Classification: Medical ; Code: 2931846235 ; Contributor System: PowerChart ; Last Updated: 04/10/2016 8:03 EDT ; Life Cycle Date: 08/13/2013 ; Life Cycle Status: Active ; Vocabulary: SNOMED CT UTI - Urinary tract infection (SNOMED CT :6637131020 ) Name of Problem: UTI - Urinary tract infection ; Recorder: KENYON CHAMBERS RN; Confirmation: Confirmed ; Classification: Medical ; Code: 8613023008 ; Contributor System: PowerChart ; Last Updated: 04/10/2016 8:04 EDT ; Life Cycle Date: 08/13/2013 ; Life Cycle Status: Active ; Vocabulary: SNOMED CT Diagnoses(Active) Medical screening exam Date: 08/25/2020 ; Diagnosis Type: Reason For Visit ; Confirmation: Complaint of ; Clinical Dx: Medical screening exam ; Classification: Medical ; Clinical Service: Non-Specified ; Code: PNED ; Probability: 0 ; Diagnosis Code: [id number] ED Height and Weight Height Source : Stated Height Entry Format : [place] Height, Feet : 5 ft(Converted to: 152 cm, 60 Inch) Height, Inches : 3 Inch(Converted to: 0 ft 3 Inch, 7.62 cm) Clinical Height : 160.02 cm Weight Source, ED : Critical estimated dosing weight Weight Entry Format : [place] Weight, Pounds : 152 lb Clinical Dosing Weight : 69.09 kg Body Surface Area (BSA) : 1.72 m2 Body Mass Index : 27 kg/m2 (HI) [place] Body Weight (IBW) : 52.02 kg Deisi Vasquez RN - 08/25/2020 4:41 EST Electronically signed by [facility], [facility] Conversion Licensed Electrician Cerner at 02/04/2023 1:59 PM CDT documented in this encounter Plan of Treatment Not on file documented as of this encounter Visit Diagnoses Not on filedocumented in this encounter Care Teams Double End Chucking Machine Operator Relationship Specialty Start Date End Date Jay Howell MD [address] [place] [phone] PCP - General Emergency Medicine 11/12/23 documented as of this encounter
--- OUTSIDE RECORDS SUMMARY | 2025-10-12 21:52 | XMS_ITS | Encounter Summary ---
Author Organization [employer] ([place], [place], [place], [place], [place]) Address [address] [place] [address] Care Team Providers Care Team Leader Surgery Name Role Phone Jay Howell MD Primary Care Provider [phone] Encounter Details Date Type Department Care Team (Late st Contact Info) Description 03/16/2021 Transcribed Document [facility] [place] Family Medicine [address] [place] [address] ProviderJessie MD [address] [place], [place] [address] Social History Tobacco Use Types Packs/Day Years [...] of the form. Electronically signed by Sivan [facility] Conversion Education Coordinator Cerner at 02/06/2023 12:48 PM CDT documented in this encounter Plan of Treatment Not on file documented as of this encounter Visit Diagnoses Not on filedocumented in this encounter Care Teams Team Leader Surgery Relationship Specialty Start Date End Date Jay Howell MD [address] [place] [phone] PCP - General Emergency Medicine 11/12/23 documented as of this encounter
--- OUTSIDE RECORDS SUMMARY | 2025-10-12 21:52 | XMS_ITS | Encounter Summary ---
Author Organization [employer] ([place], [place], [place], [place], [place]) Address [address] [place] [address] Care Team Providers Care Waterproofing Supervisor Name Role Phone Jay Howell MD Primary Care Provider [phone] Encounter Details Date Type Department Care Team (Late st Contact Info) Description 08/29/2020 Transcribed Document [facility] [place] Family Medicine [address] [place] [address] ProviderJessie MD [address] [place] [address] [phone] Social History Tobacco Use Types Packs/Day Years Used Date Smoking Tobacco: Never Assessed Comments Unknown Sex and Gender Information Value Date Recorded Sex Assigned at Not on file Legal Sex Female 7:30 PM CDT Gender Identity Not on file Sexual Orientation Not on file documented as of this encounter Miscellaneous Notes * Cerner Conversion Note - Jessie Yuen MD - 08/29/2020 8:24 AM IRRIGATION LABORER Patient: SKYLER MONTOYA Age: 79 years Sex: [...] therapy, NO BOLUS. Thank You, Slick Bradley, Dana documented in this encounter Plan of Treatment Not on file documented as of this encounter Visit Diagnoses Not on filedocumented in this encounter Care Teams Waterproofing Supervisor Relationship Specialty Start Date End Date Jay Howell MD [address] [place] [phone] PCP - General Emergency Medicine 11/12/23 documented as of this encounter
--- OUTSIDE RECORDS SUMMARY | 2025-10-12 21:52 | XMS_ITS | Encounter Summary ---
Author Organization [employer] ([place], [place], [place], [place], [place]) Address [address] [place] [address] Care Team Providers Care Signals Collection Technician Name Role Phone Jay Howell MD Primary Care Provider [phone] Encounter Details Date Type Department Care Team (Late st Contact Info) Description 09/01/2020 Transcribed Document [facility] [place] [address] [place] [address] ProviderJessie MD [address] [place] [address] Social History Tobacco Use Types Packs/Day Years Used Date Smoking Tobacco: Never Assessed Comments Unknown Sex and Gender Information Value Date Recorded Sex Assigned at Not on file Legal Sex Female 7:30 PM CDT Gender Identity Not on file Sexual Orientation Not on file documented as of this encounter Miscellaneous Notes * Cerner Conversion Note - Jessie Yuen MD - 09/01/2020 10:55 AM MONITOR TECHNICIAN Patient: SKYLER MONTOYA Age: 79 years [...] level of muscle per surgery *Operation RIGHT SYNCHRONOUS MOTOR ASSEMBLER access - ultrasound guided Aortogram with LEFT lower extremity run-off LEFT PT angioplasty (2.5-7u375kq Nanocross) LEFT peroneal angioplasty (2.5-5e420js Nanocross) RIGHT SYNCHRONOUS MOTOR ASSEMBLER closure (Angioseal) LEFT leg debridement 09/01/20 probable [...] 04:39) MAP 89 (SEP 01 04:39) 72 (SEP 01 02:00) 89 (SEP 01 [...] Results Found (Past 24 Hours) MICRO: ACC: [id number] ORDER: Culture Anaerobic DATE: 08/26/2020 13:56 SOURCE: Surgical Swab SITE: Leg Lower L Reports Final 08/31/2020 07:45 No Anaerobic growth Pre 08/28/2020 07:01 No Anaerobic growth Pre 08/27/2020 07:47 Culture in progress == ACC: [id number] ORDER: Culture Blood DATE: 08/25/2020 05:01 SOURCE: Blood SITE: Reports Final 08/30/2020 06:01 No growth at 5 days. Pre 08/29/2020 06:01 No growth at 4 days. Pre 08/28/2020 06:01 No growth at 3 days. Pre 08/27/2020 06:01 No growth at 2 days. Pre 08/26/2020 06:01 No growth at 1 day. Pre 08/25/2020 23:02 Culture less than 24 Hrs old == ACC: [id number] ORDER: Culture Blood DATE: 08/25/2020 05:01 SOURCE: Blood SITE: Reports Final 08/30/2020 06:01 No growth at 5 days. Pre 08/29/2020 06:02 No growth at 4 days. Pre 08/28/2020 06:01 No growth at 3 days. Pre 08/27/2020 06:01 No growth at 2 days. Pre 08/26/2020 06:01 No growth at 1 day. Pre 08/25/2020 23:02 Culture less than 24 Hrs old == ACC: [id number] ORDER: Culture Wound and Stain DATE: 08/26/2020 15:23 SOURCE: Surgical Swab SITE: Leg Lower L Reports Final 08/29/2020 08:29 No growth Pre 08/27/2020 07:14 No growth GS 08/26/2020 18:13 Few White Blood Cells No organisms seen. == ACC: [id number] ORDER: Culture Wound and Stain DATE: 08/25/2020 05:00 SOURCE: Wound SITE: Leg Lower L Reports Final 08/28/2020 08:57 No growth Pre 08/26/2020 06:23 No growth GS 08/25/2020 07:26 No organisms seen. Few White Blood Cells Rare epithelial cells == ACC: [id number] ORDER: Culture AFB and Stain DATE: 08/26/2020 13:56 SOURCE: Surgical Swab SITE: Leg Lower L Reports AFS 08/27/2020 13:07 No Acid Fast Bacilli seen == ACC: [id number] ORDER: Culture Fungus DATE: 08/26/2020 13:56 SOURCE: [...] wed in clinic Electronically signed by Sivan, [facility] Conversion Bobbin Loose End Finder Cerner at 02/04/2023 1:59 PM CDT documented in this encounter Plan of Treatment Not on file documented as of this encounter Visit Diagnoses Not on filedocumented in this encounter Care Teams Signals Collection Technician Relationship Specialty Start Date End Date Jay Howell MD [address] [place] [phone] PCP - General Emergency Medicine 11/12/23 documented as of this encounter
--- OUTSIDE RECORDS SUMMARY | 2025-10-12 21:52 | XMS_ITS | Encounter Summary ---
Author Organization [employer] ([place], [place], [place], [place], [place]) Address [address] [place] [address] Care Team Providers Care Clean Out Driller Helper Name Role Phone Jay Howell MD Primary Care Provider [phone] Encounter Details Date Type Department Care Team (Late st Contact Info) Description 03/17/2021 Transcribed Document [facility] [place] Family Medicine [address] [place] [address] ProviderJessie MD [address] [place], [place] [phone] Social History Tobacco Use Types Packs/Day Years [...] 03/17/2021 17:25 EDT Electronically signed by Sivan [facility] Conversion Rug Shampooer Cerner at 02/04/2023 2:18 PM CDT documented in this encounter Plan of Treatment Not on file documented as of this encounter Visit Diagnoses Not on filedocumented in this encounter Care Teams Clean Out Driller Helper Relationship Specialty Start Date End Date Jay Howell MD [address] [place] [phone] PCP - General Emergency Medicine 11/12/23 documented as of this encounter
--- OUTSIDE RECORDS SUMMARY | 2025-10-12 21:52 | XMS_ITS | Encounter Summary ---
Author Organization [employer] ([place], [place], [place], [place], [place]) Address [address] [place] [address] Care Team Providers Care Research Intern Name Role Phone Jay Howell MD Primary Care Provider [phone] Encounter Details Date Type Department Care Team (Late st Contact Info) Description 08/25/2020 Transcribed Document [facility] [place] [address] [place] [address] ProviderJessie MD [address] [place], [place] [phone] Social History Tobacco Use Types Packs/Day Years Used Date Smoking Tobacco: Never Assessed Comments Unknown Sex and Gender Information Value Date Recorded Sex Assigned at Not on file Legal Sex Female 7:30 PM CDT Gender Identity Not on file Sexual Orientation Not on file documented as of this encounter Miscellaneous Notes * Cerner Conversion Note - Jessie ProviderMD - 08/25/2020 4:33 AM VENDOR SPECIALIST Pope Suicide Severity Rating Scale (C-SSRS) Entered On: 08/25/2020 5:10 EST Performed On: 08/25/2020 5:10 EST by Yajaira Magallon Rn Pope Suicide Severity Rating Scale (C-SSRS) CSSRS Past Month Wish to be : No CSSRS Past Month Suicidal Thoughts : No CSSRS Lifetime Suicide Behavior : No Suicide Severity Rating Score : 0 Suicide Severity Rating : No Additional Care Required at this time Yajaira Magallon Rn - 08/25/2020 5:10 EST Electronically signed by Sivan [facility] Conversion Cocoa Press Operator Cerner at 02/04/2023 1:59 PM CDT documented in this encounter Plan of Treatment Not on file documented as of this encounter Visit Diagnoses Not on filedocumented in this encounter Care Teams Research Intern Relationship Specialty Start Date End Date Jay Howell MD [address] [place] [phone] PCP - General Emergency Medicine 11/12/23 documented as of this encounter
--- OUTSIDE RECORDS SUMMARY | 2025-10-12 21:52 | XMS_ITS | Encounter Summary ---
Author Organization [employer] ([place], [place], [place], [place], [place]) Address [address] [place] [address] Care Team Providers Care Steel Fixer Name Role Phone Jay Howell MD Primary Care Provider [phone] Encounter Details Date Type Department Care Team (Late st Contact Info) Description 03/17/2021 Transcribed Document [facility] [place] [address] [place] [address] ProviderJessie MD [address] [place], [place] [phone] Social History Tobacco Use Types Packs/Day Years Used Date Smoking Tobacco: Never Assessed Comments Unknown Sex and Gender Information Value Date Recorded Sex Assigned at Not on file Legal Sex Female 7:30 PM CDT Gender Identity Not on file Sexual Orientation Not on file documented as of this encounter Miscellaneous Notes * Cerner Conversion Note - Jessie ProviderMD - 03/17/2021 12:00 PM CDT Pain [...] on filedocumented in this encounter Care Teams Steel Fixer Relationship Specialty Start Date End Date Jay Howell MD [address] [place] [phone] PCP - General Emergency Medicine 11/12/23 documented as of this encounter
--- OUTSIDE RECORDS SUMMARY | 2025-10-12 21:52 | XMS_ITS | Encounter Summary ---
Author Organization [employer] ([place], [place], [place], [place], [place]) Address [address] [place] [address] Care Team Providers Care Engrosser Name Role Phone Jay Howell MD Primary Care Provider [phone] Encounter Details Date Type Department Care Team (Late st Contact Info) Description 08/29/2020 Transcribed Document [facility] [place] [address] [place] [address] ProviderJessie MD [address] [place] [phone] Social History Tobacco Use Types Packs/Day Years Used Date Smoking Tobacco: Never Assessed Comments Unknown Sex and Gender Information Value Date Recorded Sex Assigned at Not on file Legal Sex Female 7:30 PM CDT Gender Identity Not on file Sexual Orientation Not on file documented as of this encounter Miscellaneous Notes * Cerner Conversion Note - Jessie ProviderMD - 08/29/2020 1:45 PM ENHANCED ENVIRONMENTAL OPERATOR RX Interventions Entered On: 08/29/2020 15:05 EST Performed On: 08/29/2020 15:03 EST by SLICK BRADLEY vernon Clinical Interventions Clarify Drug Order : Yes SLICK BRADLEY RPh - 08/29/2020 15:03 EST Clarify Drug Order Clarify Drug Order, Order : aprin gtt as bridge therapy. S/W Leti, wt 69kg (rounded to 70kg) NO bolus per attending. Start heparin gtt at 12.6ml/h Clarify Drug Order, Value : 0 Dollar Clarify Drug Order, Time : 10 Minute(s) SLICK BRADLEY, [facility] - 08/29/2020 15:03 EST Electronically signed by [facility], [facility] Conversion Deputy General Counsel Cerner at 02/04/2023 2:17 PM CDT documented in this encounter Plan of Treatment Not on file documented as of this encounter Visit Diagnoses Not on filedocumented in this encounter Care Teams Engrosser Relationship Specialty Start Date End Date Jay Howell MD [address] [place] [phone] PCP - General Emergency Medicine 11/12/23 documented as of this encounter
--- OUTSIDE RECORDS SUMMARY | 2025-10-12 21:52 | XMS_ITS | Encounter Summary ---
Author Organization [employer] ([place], [place], [place], [place], [place]) Address [address] [place] [address] Care Team Providers Care Painter Assistant Name Role Phone Jay Howell MD Primary Care Provider [phone] Encounter Details Date Type Department Care Team (Late st Contact Info) Description 08/30/2020 Transcribed Document [facility] [place] [address] [place] [address] ProviderJessie MD [address] [place] [address] Social History Tobacco Use Types Packs/Day Years Used Date Smoking Tobacco: Never Assessed Comments Unknown Sex and Gender Information Value Date Recorded Sex Assigned at Not on file Legal Sex Female 7:30 PM CDT Gender Identity Not on file Sexual Orientation Not on file documented as of this encounter Miscellaneous Notes * Cerner Conversion Note - Jessie Yuen MD - 08/30/2020 10:43 AM RN L AND D Patient: SKYLER MONTOYA Age: 79 years Sex: [...] level of muscle per surgery *Operation RIGHT VENDOR SPECIALIST access - ultrasound guided Aortogram with LEFT lower extremity run-off LEFT PT angioplasty (2.5-3u107mn Nanocross) LEFT peroneal angioplasty (2.5-5k526ia Nanocross) RIGHT VENDOR SPECIALIST closure (Angioseal) LEFT leg debridement 08/30/20 doing [...] Last Charted Minimum Maximum Temp 97.3 (AUG 30 10:) 97.3 (AUG 30:) 98.1 (AUG 30 02:00) Apical HR 76 (AUG 30 09:37) 68 (AUG 29 21:25) 76 (AUG 30 09:37) Mon HR 65 (AUG 30 10:) 65 (AUG 30 10:) 79 (AUG 30 [...] Level 0.70 mg/dL 08/29/2020 02:04 Bun/Creatinine 22.9 OH 08/29/2020 02:04 eGFR >60 mL/min/1.73m2 08/29/2020 02:04 eGFR NonAfrican >60 mL/min/1.73m2 08/29/2020 02:04 Bun/Creatinine 22.9 OH 08/29/2020 07:33 Sodium Level 138 mmol/L 08/29/2020 02:04 Potassium Level 3.8 mmol/L 08/30/2020 04:13 Chloride Level 108 mmol/L 08/29/2020 02:04 Carbon Dioxide Level 23 mmol/L 08/29/2020 02:04 Anion Gap 10 08/29/2020 02:04 Blood Urea Nitrogen 16 mg/dL 08/29/2020 02:04 Glucose Level 108 mg/dL OH 08/29/2020 02:04 Calcium Level 9.1 mg/dL 08/29/2020 02:04 MICRO: ACC: [id number] ORDER: Culture Blood DATE: 08/25/2020 05:01 SOURCE: Blood SITE: Reports Final 08/30/2020 06:01 No growth at 5 days. Pre 08/29/2020 06:01 No growth at 4 days. Pre 08/28/2020 06:01 No growth at 3 days. Pre 08/27/2020 06:01 No growth at 2 days. Pre 08/26/2020 06:01 No growth at 1 day. Pre 08/25/2020 23:02 Culture less than 24 Hrs old == ACC: [id number] ORDER: Culture Blood DATE: 08/25/2020 05:01 SOURCE: Blood SITE: Reports Final 08/30/2020 06:01 No growth at 5 days. Pre 08/29/2020 06:02 No growth at 4 days. Pre 08/28/2020 06:01 No growth at 3 days. Pre 08/27/2020 06:01 No growth at 2 days. Pre 08/26/2020 06:01 No growth at 1 day. Pre 08/25/2020 23:02 Culture less than 24 Hrs old == ACC: [id number] ORDER: Culture Wound and Stain DATE: 08/26/2020 15:23 SOURCE: Surgical Swab SITE: Leg Lower L Reports Final 08/29/2020 08:29 No growth Pre 08/27/2020 07:14 No growth GS 08/26/2020 18:13 Few White Blood Cells No organisms seen. == ACC: [id number] ORDER: Culture Wound and Stain DATE: 08/25/2020 05:00 SOURCE: Wound SITE: Leg Lower L Reports Final 08/28/2020 08:57 No growth Pre 08/26/2020 06:23 No growth GS 08/25/2020 07:26 No organisms seen. Few White Blood Cells Rare epithelial cells == ACC: [id number] ORDER: Culture AFB and Stain DATE: 08/26/2020 13:56 SOURCE: Surgical Swab SITE: Leg Lower L Reports AFS 08/27/2020 13:07 No Acid Fast Bacilli seen == ACC: [id number] ORDER: Culture Anaerobic DATE: 08/26/2020 13:56 SOURCE: Surgical Swab SITE: Leg Lower L Reports Pre 08/28/2020 07:01 No Anaerobic growth Pre 08/27/2020 07:47 Culture in progress == ACC: [id number] ORDER: Culture Fungus DATE: 08/26/2020 13:56 SOURCE: [...] filedocumented in this encounter Care Teams Painter Assistant Relationship Specialty Start Date End Date Jay Howell MD [address] [place] [phone] PCP - General Emergency Medicine 11/12/23 documented as of this encounter
--- OUTSIDE RECORDS SUMMARY | 2025-10-12 21:52 | XMS_ITS | Encounter Summary ---
Author Organization [employer] ([place], [place], [place], [place], [place]) Address [address] [place] [address] Care Team Providers Care Garment Sorter Name Role Phone Jay Howell MD Primary Care Provider [phone] Encounter Details Date Type Department Care Team (Late st Contact Info) Description 03/17/2021 Transcribed Document [facility] [place] [address] [place] [address] ProviderJessie MD [address] [place], [place] [phone] Social History Tobacco Use Types Packs/Day Years [...] 03/17/2021 10:01 EDT by Krystina Giang V Bed Machine Operator Felipe Initial Assessment I Legal Guardian : No Krystina Giang V Bed Machine Operator User Experience Designer - 03/17/2021 14:24 EDT Previously Documented Living Environment : No qualifying data available. Living Situation : Home Patient Lives With : Spouse Employment/Vocation : retired Emergency Contact #1 : Leonardo Emergency Contact #1 Emergency Contact #1 Relationship : Son Emergency Contact #2 : Christian Emergency Contact #2 Emergency Contact #2 Relationship : Son Giang, Social Kayla Khoury [facility] 03/17/2021 10:01 EDT Enter Doctors Name : Krystina Welsh Social Worker [facility] 03/17/2021 14:24 EDT Does Patient have PCP Listed? : Yes Medical Durable Power of Senior Shipping Clerk Name : No Krystina Giang Social Worker [facility] 03/17/2021 10:01 EDT Initial Assessment II Sensory and Motor Deficits : Weakness Krystina Giang Social Worker [facility] 03/17/2021 10:01 EDT Current Home Treatments and Equipment : Bedside commode, CPAP, Shower chair, Walker, Wheelchair Krystina iGang Social Worker [facility] 03/17/2021 14:24 EDT Discharge Needs I Anticipated Discharge Date : 03/19/2021 EDT Anticipated Discharge To, CM : Home with home health Krystina Giang Social Worker [facility] 03/17/2021 14:24 EDT Current Home Treatment/Equipment : Current Home Treatment/Equipment No qualifying data available. Documentation Status Complete : Yes Krystina Giang Social Worker [facility] 03/17/2021 10:01 EDT Discharge Needs II Professional Skilled Services : Professional Skilled Services No qualifying data available. Needs Assistance with Transportation : No Discharge Options Discussed with Patient : Discharge transportation, DME, Home Health, Short term rehabilitation Krystina Giang Social Worker [facility] 03/17/2021 10:01 EDT Narrative Note Narrative Note : HD#1, ELOS-not reported, RRS-Moderate, Boost- 80 yo female admitted for syncopal episide. She fell and hit her head and suffered a right wrist fracture. Cardiology, Neurology, Orthopedics consults noted. She lives with her spouse. Independent with ADLs prior to admission. DME-walker, shower chair, BSC, cpap thru [facility] in [place]. No home 02. HHS in the past out of [place]. Denies rehab stays. DCP-Home with spouse. Possible HHPT/OT CM to follow Krystina Giang Social Worker [facility] - 03/17/2021 14:24 EDT Electronically signed by Sivan, [facility] Conversion Juvenile Corrections Officer Cerner at 02/04/2023 2:01 PM CDT documented in this encounter Plan of Treatment Not on file documented as of this encounter Visit Diagnoses Not on filedocumented in this encounter Care Teams Garment Sorter Relationship Specialty Start Date End Date Jay Howell MD [address] [place] [phone] PCP - General Emergency Medicine 11/12/23 documented as of this encounter
--- OUTSIDE RECORDS SUMMARY | 2025-10-12 21:52 | XMS_ITS | Encounter Summary ---
Author Organization [employer] ([place], [place], [place], [place], [place]) Address [address] [place] [address] Care Team Providers Care Material Attendant Name Role Phone Jay Howell MD Primary Care Provider [phone] Encounter Details Date Type Department Care Team (Late st Contact Info) Description 08/25/2020 Transcribed Document [facility] [place] [address] [place] [address] ProviderJessie MD [address] [place] [phone] Social History Tobacco Use Types Packs/Day Years Used Date Smoking Tobacco: Never Assessed Comments Unknown Sex and Gender Information Value Date Recorded Sex Assigned at Not on file Legal Sex Female 7:30 PM CDT Gender Identity Not on file Sexual Orientation Not on file documented as of this encounter Miscellaneous Notes * Cerner Conversion Note - Jessie ProviderMD - 08/25/2020 5:02 AM HEARING THERAPY DIRECTOR Pain Assessment Entered On: 08/25/2020 5:48 [...] filedocumented in this encounter Care Teams Material Attendant Relationship Specialty Start Date End Date Jay Howell MD [address] [place] [phone] PCP - General Emergency Medicine 11/12/23 documented as of this encounter
--- OUTSIDE RECORDS SUMMARY | 2025-10-12 21:52 | XMS_ITS | Encounter Summary ---
Author Organization [employer] ([place], [place], [place], [place], [place]) Address [address] [place] [address] Care Team Providers Care Cisco Certified Network Associate Name Role Phone Jay Howell MD Primary Care Provider [phone] Encounter Details Date Type Department Care Team (Late st Contact Info) Description 08/29/2020 Transcribed Document [facility] [place] [address] [place] [address] ProviderJessie MD [address] [place] [address] [phone] Social History Tobacco Use Types Packs/Day Years Used Date Smoking Tobacco: Never Assessed Comments Unknown Sex and Gender Information Value Date Recorded Sex Assigned at Not on file Legal Sex Female 7:30 PM CDT Gender Identity Not on file Sexual Orientation Not on file documented as of this encounter Miscellaneous Notes * Cerner Conversion Note - Jessie ProviderMD - 08/29/2020 2:41 PM LAWYER REAL ESTATE On Going Discharge Planning Entered On: 08/29/2020 14:44 EST Performed On: 08/29/2020 14:41 EST by KAVITA PELLETIER RN-Basketballs And Footballs ReverserRadar Tester Progress Note Discharge Arrangements : Patient [...] Meeting Medical Necessity : Yes KAVITA PELLETIER RN-Basketballs And Footballs Reverser - 08/29/2020 14:41 EST Narrative Progress Note Narrative Progress Note : No DC today--INR-1.5. Hep gtt started to bridge Coumadin. NPWT for home obtained from [employer] and has been delivered to pt's room. [...] will obtain prior to dc. List of TOOL KEEPER's for [place] given to pt. She will choose and inform CM. Coumadin restarted today. CM will continue to follow. KAVITA PELLETIER RN-Basketballs And Footballs Reverser - 08/28/20 15:37:20 Pt is s/p LLE [...] past after her SIMONA and went to [facility] prior to home with HH. She is agreeable to look at list of TOOL KEEPER to make an informed decision based on quality and resource use information. Cx's are pending to determine need for IV abx at home. Likely dc in a few days. CM will continue to follow. KAVITA PELLETIER RN-Basketballs And Footballs Reverser - 08/27/20 15:14:36 KAVITA PELLETIER RN-Basketballs And Footballs Reverser - 08/29/2020 14:41 EST Electronically signed by Sivan [facility] Conversion Tool Chaser Cerner at 02/04/2023 2:06 PM CDT documented in this encounter Plan of Treatment Not on file documented as of this encounter Visit Diagnoses Not on filedocumented in this encounter Care Teams Cisco Certified Network Associate Relationship Specialty Start Date End Date Jay Howell MD [address] [place] [phone] PCP - General Emergency Medicine 11/12/23 documented as of this encounter
--- OUTSIDE RECORDS SUMMARY | 2025-10-12 21:52 | XMS_ITS | Encounter Summary ---
Author Organization [employer] ([place], [place], [place], [place], [place]) Address [address] [place] [address] Care Team Providers Care Dark Room Attendant Name Role Phone Jay Howell MD Primary Care Provider [phone] Encounter Details Date Type Department Care Team (Late st Contact Info) Description 08/29/2020 Transcribed Document [facility] [place] Family Medicine [address] [place] [address] ProviderJessie MD [address] [place] [address] Social History Tobacco Use Types Packs/Day Years Used Date Smoking Tobacco: Never Assessed Comments Unknown Sex and Gender Information Value Date Recorded Sex Assigned at Not on file Legal Sex Female 7:30 PM CDT Gender Identity Not on file Sexual Orientation Not on file documented as of this encounter Miscellaneous Notes * Cerner Conversion Note - Jessie Yuen MD - 08/29/2020 1:02 PM MONORAIL CAR OPERATOR Patient: SKYLER MONTOYA Age: 79 years [...] level of muscle per surgery *Operation RIGHT BUILDING SPECIALIST access - ultrasound guided Aortogram with LEFT lower extremity run-off LEFT PT angioplasty ([id number] Nanocross) LEFT peroneal angioplasty (2.5-7s514uz Nanocross) RIGHT BUILDING SPECIALIST closure (Angioseal) LEFT leg debridement 08/29/20 doing [...] 16 (AUG 29 05:57) SBP 140 (AUG 29 10:30) 140 (AUG 28 14:55) H 155 (AUG 29 00:41) DBP L 49 (AUG 29:30) L 46 (AUG 28 21:10) 61 (AUG 29 00:41) MAP 72 (AUG 29:) 71 (AUG 28 18:00) 83 (AUG 29 00:41) SpO2 98 (AUG 29:30) 96 (AUG 28:55) 98 (AUG 28 18:00) GENERAL: The patient [...] Level 0.70 mg/dL 08/29/2020 02:04 Bun/Creatinine 22.9 AL 08/29/2020 02:04 eGFR >60 mL/min/1.73m2 08/29/2020 02:04 eGFR NonAfrican >60 mL/min/1.73m2 08/29/2020 02:04 Bun/Creatinine 22.9 AL 08/29/2020 07:33 Sodium Level 138 mmol/L 08/29/2020 02:04 Potassium Level 3.3 mmol/L LOW 08/29/2020 02:04 Chloride Level 108 mmol/L 08/29/2020 02:04 Carbon Dioxide Level 23 mmol/L 08/29/2020 02:04 Anion Gap 10 08/29/2020 02:04 Blood Urea Nitrogen 16 mg/dL 08/29/2020 02:04 Glucose Level 108 mg/dL AL 08/29/2020 02:04 Calcium Level 9.1 mg/dL 08/29/2020 02:04 MICRO: ACC: [id number] ORDER: Culture Wound and Stain DATE: 08/26/2020 15:23 SOURCE: Surgical Swab SITE: Leg Lower L Reports Final 08/29/2020 08:29 No growth Pre 08/27/2020 07:14 No growth GS 08/26/2020 18:13 Few White Blood Cells No organisms seen. == ACC: [id number] ORDER: Culture Wound and Stain DATE: 08/25/2020 05:00 SOURCE: Wound SITE: Leg Lower L Reports Final 08/28/2020 08:57 No growth Pre 08/26/2020 06:23 No growth GS 08/25/2020 07:26 No organisms seen. Few White Blood Cells Rare epithelial cells == ACC: [id number] ORDER: Culture AFB and Stain DATE: 08/26/2020 13:56 SOURCE: Surgical Swab SITE: Leg Lower L Reports AFS 08/27/2020 13:07 No Acid Fast Bacilli seen == ACC: [id number] ORDER: Culture Anaerobic DATE: 08/26/2020 13:56 SOURCE: Surgical Swab SITE: Leg Lower L Reports Pre 08/28/2020 07:01 No Anaerobic growth Pre 08/27/2020 07:47 Culture in progress == ACC: [id number] ORDER: Culture Fungus DATE: 08/26/2020 13:56 SOURCE: Surgical Swab SITE: Leg Lower L Reports SINDI 08/26/2020 16:09 No Fungal elements seen == ACC: [id number] ORDER: Culture Blood DATE: 08/25/2020 05:01 SOURCE: Blood SITE: Reports Pre 08/29/2020 06:01 No growth at 4 days. Pre 08/28/2020 06:01 No growth at 3 days. Pre 08/27/2020 06:01 No growth at 2 days. Pre 08/26/2020 06:01 No growth at 1 day. Pre 08/25/2020 23:02 Culture less than 24 Hrs old == ACC: [id number] ORDER: Culture Blood DATE: 08/25/2020 05:01 SOURCE: Blood SITE: Reports Pre 08/29/2020 06:02 No growth at 4 days. Pre 08/28/2020 06:01 No growth at 3 days. Pre 08/27/2020 06:01 No growth at 2 days. Pre 08/26/2020 06:01 No growth at 1 day. Pre 08/25/2020 23:02 Culture less than 24 Hrs old == Radiology Results (Last 48 hours) [id number] -- 08/25/2020 05:53 CT Abdomen WO W [...] on filedocumented in this encounter Care Teams Dark Room Attendant Relationship Specialty Start Date End Date Jay Howell MD [address] [place] [phone] PCP - General Emergency Medicine 11/12/23 documented as of this encounter
--- OUTSIDE RECORDS SUMMARY | 2025-10-12 21:52 | XMS_ITS | Encounter Summary ---
Author Organization [employer] ([place], [place], [place], [place], [place]) Address [address] [place] [address] Care Team Providers Care Fabric Stretcher Name Role Phone Jay Howell MD Primary Care Provider [phone] Encounter Details Date Type Department Care Team (Late st Contact Info) Description 03/17/2021 Transcribed Document [facility] [place] Family Medicine [address] [place] [address] ProviderJessie MD [address] [place], [place] [address] Social History Tobacco Use Types Packs/Day Years [...] RAMÍREZ, RN-Utilization Review - 03/17/2021 15:21 EDT documented in this encounter Plan of Treatment Not on file documented as of this encounter Visit Diagnoses Not on filedocumented in this encounter Care Teams Fabric Stretcher Relationship Specialty Start Date End Date Jay Howell MD [address] [place] [phone] PCP - General Emergency Medicine 11/12/23 documented as of this encounter
--- OUTSIDE RECORDS SUMMARY | 2025-10-12 21:52 | XMS_ITS | Encounter Summary ---
Author Organization [employer] ([place], [place], [place], [place], [place]) Address [address] [place] [address] Care Team Providers Care Mosaic Floor Layer Name Role Phone Jay Howell MD Primary Care Provider [phone] Encounter Details Date Type Department Care Team (Late st Contact Info) Description 03/17/2021 Transcribed Document [facility] [place] [address] [place] [address] ProviderJessie MD [address] [place], [place] [address] Social History Tobacco Use Types Packs/Day Years Used Date Smoking Tobacco: Never Assessed Comments Unknown Sex and Gender Information Value Date Recorded Sex Assigned at Not on file Legal Sex Female 7:30 PM CDT Gender Identity Not on file Sexual Orientation Not on file documented as of this encounter Miscellaneous Notes * Cerner Conversion Note - Jessie ProviderMD - 03/17/2021 5:00 AM CDT Chart Check - Review Order Profile Entered On: 03/17/2021 6:46 EDT Performed On: 03/17/2021 5:00 EDT by Susan Marks RN-PATIENT CARE BEDSIDE NON-EXEMPT Chart Check Powerplans Initiated/Discontinued as Appropriate : Yes All Active Orders Reviewed : Yes Susan Marks RN-PATIENT CARE BEDSIDE NON-EXEMPT - 03/17/2021 6:46 EDT Electronically signed by Gayle Finnegan Conversion Custom Decorating Consultant Cerner at 02/04/2023 2:18 PM CDT documented in this encounter Plan of Treatment Not on file documented as of this encounter Visit Diagnoses Not on filedocumented in this encounter Care Teams Mosaic Floor Layer Relationship Specialty Start Date End Date Jay Howell MD [address] [place] [phone] PCP - General Emergency Medicine 11/12/23 documented as of this encounter
--- OUTSIDE RECORDS SUMMARY | 2025-10-12 21:52 | XMS_ITS | Encounter Summary ---
Author Organization [employer] ([place], [place], [place], [place], [place]) Address [address] [place] [address] Care Team Providers Care Technical Specialist Name Role Phone Jay Howell MD Primary Care Provider [phone] Encounter Details Date Type Department Care Team (Late st Contact Info) Description 03/17/2021 Transcribed Document [facility] [place] [address] [place] [address] ProviderJessie MD [address] [place], [place] [address] Social History Tobacco Use Types Packs/Day Years Used Date Smoking Tobacco: Never Assessed Comments Unknown Sex and Gender Information Value Date Recorded Sex Assigned at Not on file Legal Sex Female 7:30 PM CDT Gender Identity Not on file Sexual Orientation Not on file documented as of this encounter Miscellaneous Notes * Cerner Conversion Note - Jessie ProviderMD - 03/17/2021 12:48 PM CDT UM Authorization Entered On: 03/17/2021 12:49 EDT Performed On: 03/17/2021 12:48 EDT by MARILYNN RAMÍREZ, RN-Utilization Review Primary Insurance Authorization Authorization and Policy Numbers : Insurance 1 Health Plan: MEDICARE Policy Number: [id number] Authorization Number: Insurance 2 Health Plan: AARP N Policy Number: [id number] Authorization Number: Insurance Primary Name : MEDICARE Policy Number: [id number] Authorized Service Begin Date-Primary : 03/16/2021 EDT Historical Authorization Comments-Primary : No Authorization Comments Found MARILYNN RAMÍREZ, RN-Utilization Review - 03/17/2021 12:48 EDT Electronically signed by Sivan [facility] Conversion Network Systems Integrator Cerner at 02/04/2023 2:08 PM CDT documented in this encounter Plan of Treatment Not on file documented as of this encounter Visit Diagnoses Not on filedocumented in this encounter Care Teams Technical Specialist Relationship Specialty Start Date End Date Jay Howell MD [address] [place] [phone] PCP - General Emergency Medicine 11/12/23 documented as of this encounter
--- OUTSIDE RECORDS SUMMARY | 2025-10-12 21:52 | XMS_ITS | Encounter Summary ---
Author Organization [employer] ([place], [place], [place], [place], [place]) Address [address] [place] [address] Care Team Providers Care Sales Training Manager Name Role Phone Jay Howell MD Primary Care Provider [phone] Encounter Details Date Type Department Care Team (Late st Contact Info) Description 08/25/2020 Transcribed Document [facility] [place] [address] [place] [address] ProviderJessie MD [address] [place] [phone] Social History Tobacco Use Types Packs/Day Years Used Date Smoking Tobacco: Never Assessed Comments Unknown Sex and Gender Information Value Date Recorded Sex Assigned at Not on file Legal Sex Female 7:30 PM CDT Gender Identity Not on file Sexual Orientation Not on file documented as of this encounter Miscellaneous Notes * Cerner Conversion Note - Jessie ProviderMD - 08/25/2020 4:33 AM SMOKEHOUSE WORKER ED Assessment Entered On: 08/25/2020 5:16 EST Performed On: 08/25/2020 5:12 EST by Yajaira Magallon, optic fibre drawer Quick Look Assessment Level of Consciousness : Alert, Awake Affect/Behavior : Appropriate, Calm, Cooperative Orientation : Oriented x 4 Skin Temperature : Warm Skin Description : Normal for ethnicity Yajaira Magallon Rn - 08/25/2020 5:12 EST ED General-Functional Assess Information Obtained From : Patient Preferred Communication Mode : Verbal Communication Barrier : None Primary Language : Andorran Any Spiritual/Cultural Needs or Requests : No [...] - 08/25/2020 5:12 EST Electronically signed by [facility] Conversion Field Crop I Farmworker Cerner at 02/04/2023 2:02 PM CDT documented in this encounter Plan of Treatment Not on file documented as of this encounter Visit Diagnoses Not on filedocumented in this encounter Care Teams Sales Training Manager Relationship Specialty Start Date End Date Jay Howell MD [address] [place] [phone] PCP - General Emergency Medicine 11/12/23 documented as of this encounter
--- OUTSIDE RECORDS SUMMARY | 2025-10-12 21:52 | XMS_ITS | Encounter Summary ---
Author Organization [employer] ([place], [place], [place], [place], [place]) Address [address] [place] [address] Care Team Providers Care At Home Independent Call Center Agent Name Role Phone Jay Howell MD Primary Care Provider [phone] Encounter Details Date Type Department Care Team (Late st Contact Info) Description 08/25/2020 Transcribed Document [facility] Family Medicine [address] [place] [address] ProviderJessie MD [address] [place] [address] Social History Tobacco Use Types Packs/Day Years Used Date Smoking Tobacco: Never Assessed Comments Unknown Sex and Gender Information Value Date Recorded Sex Assigned at Not on file Legal Sex Female 7:30 PM CDT Gender Identity Not on file Sexual Orientation Not on file documented as of this encounter Miscellaneous Notes * Cerner Conversion Note - Jessie Yuen MD - 08/25/2020 7:11 AM GENERAL ASSISTANT Pain Assessment Entered On: 08/26/2020 1:56 EST [...] on filedocumented in this encounter Care Teams At Home Independent Call Center Agent Relationship Specialty Start Date End Date Jay Howell MD [address] [place] [phone] PCP - General Emergency Medicine 11/12/23 documented as of this encounter
--- OUTSIDE RECORDS SUMMARY | 2025-10-12 21:52 | XMS_ITS | Encounter Summary ---
Author Organization [employer] ([place], [place], [place], [place], [place]) Address [address] [place] [address] Care Team Providers Care Manager Study Name Role Phone Jay Howell MD Primary Care Provider [phone] Encounter Details Date Type Department Care Team (Late st Contact Info) Description 03/17/2021 Transcribed Document [facility] [place] [address] [place] [address] ProviderJessie MD [address] [place], [place] [address] Social History Tobacco Use Types Packs/Day Years Used Date Smoking Tobacco: Never Assessed Comments Unknown Sex and Gender Information Value Date Recorded Sex Assigned at Not on file Legal Sex Female 7:30 PM CDT Gender Identity Not on file Sexual Orientation Not on file documented as of this encounter Miscellaneous Notes * Cerner Conversion Note - Jessie ProviderMD - 03/17/2021 2:49 PM CDT Discharge Instructions Entered On: 03/17/2021 14:50 EDT Performed On: 03/17/2021 14:49 EDT by BHARTI MAGAÑA MD-NEU DC Instructions HWD Driving After Discharge : Do not drive, Other: No driving or operating heavy machinery until released by a physician. BHARTI MAGAÑA MD-NEU - 03/17/2021 14:49 EDT Electronically signed by Sivan [facility] Conversion Assessment Nurse Cerner at 02/04/2023 2:21 PM CDT documented in this encounter Plan of Treatment Not on file documented as of this encounter Visit Diagnoses Not on filedocumented in this encounter Care Teams Manager Study Relationship Specialty Start Date End Date Jay Howell MD [address] [place] [phone] PCP - General Emergency Medicine 11/12/23 documented as of this encounter
--- OUTSIDE RECORDS SUMMARY | 2025-10-12 21:52 | XMS_ITS | Clinical Summary ---
Author Organization [employer] ([place], [place], [place], [place], [place]) Address [address] [place] [address] Care Team Providers Care Brick Setter Name Role Phone Jay Howell MD [...] Date Kennedy rded Speak language other than Malagasy at home Not on file 10/30/2023 Want [...] history exists Insurance MEDICARE PART A B [facility] [place] [id number] Advance Directives For more information, please contact: [phone] * Full Code (Latest Code Status on File) Date Activated Date Inactivated Comments 11/25/2022 10:41 AM 11/26/2022 5:33 PM * Full Code Date Activated Date Inactivated Comments 11/25/2022 8:11 AM 11/25/2022 10:41 AM -Attempt Resu scitation if person has no pulse and is not breathing. -If no pulse or not breathing attempt CPR/CODE. -Call Rapid Response if patient is in distress. Care Teams Brick Setter Relationship Specialty Start Date End Date Jay Howell MD [address] [place] [phone] PCP - General Emergency Medicine 11/12/23
--- OUTSIDE RECORDS SUMMARY | 2025-10-12 21:52 | XMS_ITS | Encounter Summary ---
Author Organization [employer] ([place], [place], [place], [place], [place]) Address [address] [place] [address] Care Team Providers Care Emergency Crew Supervisor Name Role Phone Jay Howell MD Primary Care Provider [phone] Encounter Details Date Type Department Care Team (Late st Contact Info) Description 03/17/[address] [facility] [place] Family Medicine [address] [place] [address] ProviderJessie MD [address] [place], [place] [address] Social History Tobacco Use Types Packs/Day Years Used Date Smoking Tobacco: Never Assessed Comments Unknown Sex and Gender Information Value Date Recorded Sex Assigned at Not on file Legal Sex Female 7:30 PM CDT Gender Identity Not on file Sexual Orientation Not on file documented as of this encounter Miscellaneous Notes * Cerner Conversion Note - Jessie ProviderMD - 03/17/2021 11:35 AM CDT Pain [...] form. Electronically signed by Sivan [facility] Conversion Design Checker Cerner at 02/04/2023 2:02 PM CDT documented in this encounter Plan of Treatment Not on file documented as of this encounter Visit Diagnoses Not on filedocumented in this encounter Care Teams Emergency Crew Supervisor Relationship Specialty Start Date End Date Jay Howell MD [address] [place] [phone] PCP - General Emergency Medicine 11/12/23 documented as of this encounter
--- OUTSIDE RECORDS SUMMARY | 2025-10-12 21:52 | XMS_ITS | Encounter Summary ---
Author Organization [employer] ([place], [place], [place], [place], [place]) Address [address] [place] [address] Care Team Providers Care Flaker Operator Name Role Phone Jay Howell MD Primary Care Provider [phone] Encounter Details Date Type Department Care Team (Late st Contact Info) Description 08/25/2020 Transcribed Document [facility] [place] [address] [place] [address] ProviderJessie MD [address] [place] [id number] Social History Tobacco Use Types Packs/Day Years Used Date Smoking Tobacco: Never Assessed Comments Unknown Sex and Gender Information Value Date Recorded Sex Assigned at Not on file Legal Sex Female 7:30 PM CDT Gender Identity Not on file Sexual Orientation Not on file documented as of this encounter Miscellaneous Notes * Cerner Conversion Note - Jessie Yuen MD - 08/25/2020 6:23 AM RESISTANCE MACHINE WELDER SETTER Patient: SKYLER MONTOYA Age: 79 years Sex: [...] Application, Topical, TID, 22 Gram, 0 Refill(s) Traphill 7.5 mg-325 mg oral tablet: 1 Tab, [...] Problem list: Medical Arthritis / SNOMED CT 8915487 / Confirmed Atrial fibrillation with RVR / SNOMED CT 7563550036 / Confirmed Cataract / Patient Care / Confirmed Chest pain / SNOMED CT 47702832 / Complaint of COPD / SNOMED CT 86424229 / Confirmed Coronary artery disease / SNOMED CT 2147044311 / Confirmed Diabetes mellitus / SNOMED CT 994490212 / Confirmed GERD - Gastro-esophageal reflux disease / SNOMED CT 2057186712 / Confirmed Glaucoma / Patient Care / Confirmed Chronic anticoagulation / SNOMED CT 878186389 / Confirmed Hx of pulmonary embolus / SNOMED CT 388101370 / Confirmed High blood pressure / SNOMED CT 11474388 / Confirmed History of obstructive sleep apnea / IMO 41034743 / Confirmed Hyperlipidemia / SNOMED CT 67258751 / Confirmed Multiple renal cysts / SNOMED CT 308994699 / Confirmed Emphysema / SNOMED CT 794335366 / Confirmed Apnea, sleep / SNOMED CT 618385773 / Confirmed Stented coronary artery / SNOMED CT 5230463776 / Confirmed UTI - Urinary tract infection / SNOMED CT 9619995504 / Confirmed, Active Problems (21) Apnea, sleep [...] History: Active Cataract Glaucoma Coronary artery disease (6327093751) Stented coronary artery (1616646568) High blood pressure (84847641) Hyperlipidemia (56060968) COPD (29170005) GERD - Gastro-esophageal reflux disease (8018102136) Multiple renal cysts (220022837) UTI - Urinary tract infection (7810742360) Arthritis (2018588) Diabetes mellitus (209015721) Emphysema (138860084) Apnea, sleep (251050713) Hx of pulmonary embolus (268033149) Chronic anticoagulation (962944366) Atrial fibrillation with RVR (7887747603) Family History: Cardiomyopathy Child Stroke Brother Heart attack Brother Sister Leukemia Child Cancer Father Mother Sister Coronary heart disease Child , Significant for hypertension Procedure history: Cardiac Stent in 2010 at 70 Years. Cardiac Stent on 01/30/2008 at 67 Years. Comments: 06/13/2020 8:52 THERESET - EVA WESLEY RN PCI w/ [place] stent to D1 Coronary artery bypass graft (421236348) in 1992 at 52 Years. femur repair. Appendectomy (359515559). uterine suspension. Hysterectomy (658628385). back surgury. Cholecystectomy (25609186). Hip replacement (6265769967). cataract surgury. Social History Social & Psychosocial [...] 81 (AUG 25:) Resp Rate 17 (AUG 25:) 16 (AUG 25:) 18 (AUG 25:) SBP H 200 (AUG 25:) H 197 (AUG 25:) H 214 (AUG 25:) DBP 80 (AUG 25:07) 80 (AUG 25:07) H 133 (AUG 25:) MAP 115 (AUG [...] on filedocumented in this encounter Care Teams Flaker Operator Relationship Specialty Start Date End Date Jay Howell MD [address] [place] [phone] PCP - General Emergency Medicine 11/12/23 documented as of this encounter
--- OUTSIDE RECORDS SUMMARY | 2025-10-12 21:52 | XMS_ITS | Clinical Summary ---
Author Organization [facility] Address [address] [place] [address], [address] [place] [address] Care Team Providers Care Putty And Caulking Supervisor Name Role Phone Jay Howell MD Primary Care Provider Allergies Active Allergy Reactions Criticality Noted Date Comments Nitrofurantoin Hives,Itching,Other (See Comments),Rash Medium 06/14/2013 Macrobid Medications Hospital, Clinic, or Other Facility Administered Medication Ordered Dose Route Frequency Start Date End Date Status methylPREDNISolone acetate (DEPO-MEDROL) injection 80 mgIndications:Nontraumatic complete tear of left rotator cuff 80 mg IX ONCE 09/16/2025 09/16/2025 Ended lidocaine 1 % injection 8 mLIndications:Nontraumatic complete tear of left rotator cuff 8 mL IX ONCE 09/16/2025 09/16/2025 Ended Encounters Date Type Department Care Team Description 09/16/2025 2:00 PM EST Office Visit [facility] Orthopedic and Sports Medicine [address] [address] Shagufta Cueva PA-C Nontraumatic complete tear of left rotator cuff (Primary Dx); S/P rotator cuff repair from Last 3 Months Social History Tobacco [...] 04/25/2025 2:59 PM EDT Plan of Treatment Upcoming Encounters Date Type Department Care Team (Late st Contact Info) Description 11/21/2025 4:00 PM EST Office Visit [facility] [place], [place] [address] Luis Upton MD [address] [place] [address] F/U L SHOULDER Health Maintenance Due Date Last Done Comments [...] Nontraumatic complete tear of left rotator cuff from Last 3 Months Insurance MEDICARE Member Subscriber Plan / Payer ( fective 1996-Present) Name:Miladis Montoya Relation to Subscriber:Self Name:Miladis Montoya Payer ID:Not on file Group ID:Not on file Type:Not on file Address: [address] Care Teams Putty And Caulking Supervisor Relationship Specialty Start Date End Date Jay Howell MD [address] [phone] PCP - General Emergency Medicine 03/06/25
--- OUTSIDE RECORDS SUMMARY | 2025-10-12 21:52 | XMS_ITS | Encounter Summary ---
Author Organization [employer] ([place], [place], [place], [place], [place]) Address [address] [place] [address] Care Team Providers Care Motion Picture Equipment Machinist Name Role Phone Jay Howell MD Primary Care Provider [phone] Encounter Details Date Type Department Care Team (Late st Contact Info) Description 08/30/2020 Transcribed Document [facility] [place] Family Medicine [address] [place] [address] ProviderJessie MD [address] [place] [address] Social History Tobacco Use Types Packs/Day Years Used Date Smoking Tobacco: Never Assessed Comments Unknown Sex and Gender Information Value Date Recorded Sex Assigned at Not on file Legal Sex Female 7:30 PM CDT Gender Identity Not on file Sexual Orientation Not on file documented as of this encounter Miscellaneous Notes * Cerner Conversion Note - Jessie Yuen MD - 08/30/2020 9:36 AM GROUP WORK PROGRAM AIDE Patient: SKYLER MONTOYA Age: 79 years Sex: [...] for this consult, Miladys Lopez, KellD PGY-1 Supervisor Slashing Department Pager #: [phone] Extension #: [phone] Electronically signed by Sivan, [facility] Conversion Resistance Machine Welder Setter Cerner at 02/04/2023 2:03 PM CDT documented in this encounter Plan of Treatment Not on file documented as of this encounter Visit Diagnoses Not on filedocumented in this encounter Care Teams Motion Picture Equipment Machinist Relationship Specialty Start Date End Date Jay Howell MD [address] [place] [phone] PCP - General Emergency Medicine 1/27/24 documented as of this encounter
--- OUTSIDE RECORDS SUMMARY | 2025-10-12 21:52 | XMS_ITS | Encounter Summary ---
Author Organization [employer] ([place], [place], [place], [place], [place]) Address [address] [place] [address] Care Team Providers Care Seating Captain Name Role Phone Jay Howell MD Primary Care Provider [phone] Encounter Details Date Type Department Care Team (Late st Contact Info) Description 03/17/2021 Transcribed Document [facility] [place] [address] [place] [address] ProviderJessie MD [address] [place], [place] [address]111 Social History Tobacco Use Types Packs/Day Years [...] Performed On: 03/17/2021 9:00 EDT by TASHI LIND, [facility] Phone Call for Consults Consult, Additional Information : notified by physician TASHI LIND, [facility] - 03/18/2021 8:31 EDT documented in this encounter Plan of Treatment Not on file documented as of this encounter Visit Diagnoses Not on filedocumented in this encounter Care Teams Seating Captain Relationship Specialty Start Date End Date Jay Howell MD [address] [place] [phone] PCP - General Emergency Medicine 11/12/23 documented as of this encounter
--- OUTSIDE RECORDS SUMMARY | 2025-10-12 21:52 | XMS_ITS | Encounter Summary ---
Author Organization [employer] ([place], [place], [place], [place], [place]) Address [address] [place] [address] Care Team Providers Care Grade And Center Marker Name Role Phone Jay Howell MD Primary Care Provider [phone] Encounter Details Date Type Department Care Team (Late st Contact Info) Description 08/25/2020 Transcribed Document [facility] [place] Family Medicine [address] [place] [address] ProviderJessie MD [address] [place] [address] Social History Tobacco Use Types Packs/Day Years Used Date Smoking Tobacco: Never Assessed Comments Unknown Sex and Gender Information Value Date Recorded Sex Assigned at Not on file Legal Sex Female 7:30 PM CDT Gender Identity Not on file Sexual Orientation Not on file documented as of this encounter Miscellaneous Notes * Cerner Conversion Note - Jessie Yuen MD - 08/25/2020 5:05 AM INTAKE COUNSELOR Patient: SKYLER MONTOYA Age: 79 years Sex: [...] CHARLEE - EVA WESLEY RN PCI w/ Belt stent to D1 Coronary artery bypass graft ([id number]) in 1992 at 52 Years. femur repair. Appendectomy ([id number]). uterine suspension. Hysterectomy ([id number]). back surgury. Cholecystectomy ([id number]). Hip replacement ([id number]). cataract surgury. . Family history: Cardiomyopathy Child [...] EST Height Source Stated Height Entry Format [place] Height/Length, [place] (ft) 5 ft Height/Length [place] 3 Inch CLINICALHEIGHT 160.02 cm [place] Body Weight 52.02 kg Weight Source, ED Critical estimated dosing weight Weight Entry Format [place] Weight Togolese lb 152 lb CLINICALWEIGHT 69.09 kg Body [...] Stain: Ordered ED Fall Risk Documented: ED cream dipper: Normal Saline 1,000 mL: 75 mL/Hr, IntraVENous [...] Application, Topical, TID, 22 Gram, 0 Refill(s) [place] 7.5 mg-325 mg oral tablet: 1 Tab, [...] % 32.7 % Lymph # 1.98 x10(3)/uL [place] % 10.2 % HI [place] # 0.62 K/uL Eos % 0.0 % [...] . Electronically signed by Sivan [facility] Conversion Nitric Acid Concentrator Operator Cerner at 02/04/2023 2:03 PM CDT documented in this encounter Plan of Treatment Not on file documented as of this encounter Visit Diagnoses Not on filedocumented in this encounter Care Teams Grade And Center Marker Relationship Specialty Start Date End Date Jay Howell MD [address] [place] [phone] PCP - General Emergency Medicine 11/12/23 documented as of this encounter
--- OUTSIDE RECORDS SUMMARY | 2025-10-12 21:52 | XMS_ITS | Encounter Summary ---
Author Organization [employer] ([place], [place], [place], [place], [place]) Address [address] [place] [address] Care Team Providers Care Respiratory Physician Name Role Phone Jay Howell MD Primary Care Provider [phone] Encounter Details Date Type Department Care Team (Late st Contact Info) Description 08/29/2020 Transcribed Document [facility] [place] [address] [place] [address] ProviderJessie MD [address] [place] [address] [phone] Social History Tobacco Use Types Packs/Day Years Used Date Smoking Tobacco: Never Assessed Comments Unknown Sex and Gender Information Value Date Recorded Sex Assigned at Not on file Legal Sex Female 7:30 PM CDT Gender Identity Not on file Sexual Orientation Not on file documented as of this encounter Miscellaneous Notes * Cerner Conversion Note - Jessie ProviderMD - 08/29/2020 1:32 PM CHILD DEVELOPMENT INSTRUCTOR Discharge Summary, PT Entered On: 08/29/2020 13:33 EST Performed On: 08/29/2020 13:32 EST by ERIC OH PT Discharge Summary Discharge Summary Provider Notified [...] - 08/29/2020 13:32 EST Electronically signed by Interface, [facility] Conversion Geophysics Teacher Cerner at 02/04/2023 2:09 PM CDT documented in this encounter Plan of Treatment Not on file documented as of this encounter Visit Diagnoses Not on filedocumented in this encounter Care Teams Respiratory Physician Relationship Specialty Start Date End Date Jay Howell MD [address] [place] [phone] PCP - General Emergency Medicine 11/12/23 documented as of this encounter
--- OUTSIDE RECORDS SUMMARY | 2025-10-12 21:52 | XMS_ITS | Encounter Summary ---
Author Organization [employer] ([place], [place], [place], [place], [place]) Address [address] [place] [address] Care Team Providers Care Metal Fence Erector Name Role Phone Jay Howell MD Primary Care Provider [phone] Encounter Details Date Type Department Care Team (Late st Contact Info) Description 03/17/2021 Transcribed Document [facility] [place] Family Medicine [address] [place] [address] ProviderJessie MD [address] [place], [place] 269561 Social History Tobacco Use Types Packs/Day Years [...] Lymph # 1.52 x10(3)/uL 03/16/2021 11:38 EDT [place] % 5.1 % 03/16/2021 11:38 EDT [place] # 0.50 K/uL 03/16/2021 11:38 EDT Eos [...] Appearance CLEAR2 03/16/2021 14:09 EDT Urine Specific [place] 1.015 03/17/2021 04:10 EDT Urine Specific [place] 1.014 03/16/2021 14:09 EDT Urine pH Dipstick [...] filedocumented in this encounter Care Teams Metal Fence Erector Relationship Specialty Start Date End Date Jay Howell MD [address] [place] [phone] PCP - General Emergency Medicine 11/12/23 documented as of this encounter
--- OUTSIDE RECORDS SUMMARY | 2025-10-12 21:52 | XMS_ITS | Encounter Summary ---
Author Organization [employer] ([place], [place], [place], [place], [place]) Address [address] [place] [address] Care Team Providers Care Negative Notcher Name Role Phone Jay Howell MD Primary Care Provider [phone] Encounter Details Date Type Department Care Team (Late st Contact Info) Description 08/24/2020 Transcribed Document [facility] [place] Family Medicine [address] [place] [address] ProviderJessie MD [address] [place], [place] [phone] Social History Tobacco Use Types Packs/Day Years Used Date Smoking Tobacco: Never Assessed Comments Unknown Sex and Gender Information Value Date Recorded Sex Assigned at Not on file Legal Sex Female 7:30 PM CDT Gender Identity Not on file Sexual Orientation Not on file documented as of this encounter Miscellaneous Notes * Cerner Conversion Note - Historical ProviderMD - 08/24/2020 7:06 PM DESK LIEUTENANT CR Ankle Min 3 Vws LT Ordered: 08/22/2020 Auth (Verified) Reason for Exam: fall08/23/2020 11:53 CR Tibia Fibula 2 Vws LT Ordered: 08/22/2020 Auth (Verified) Reason for Exam: fall08/23/2020 11:53 08/24/2020 19:06 (TRACIE TORRES PA) Reviewed by Provider, No further action required X1 - no acute 08/23/2020 14:33 (ROBBY SANTAMARIA) Provider Review Required Electronically signed by Sivan [facility] Conversion Legal Billing Coordinator Cerner at 02/04/2023 2:10 PM CDT documented in this encounter Plan of Treatment Not on file documented as of this encounter Visit Diagnoses Not on filedocumented in this encounter Care Teams Negative Notcher Relationship Specialty Start Date End Date Jay Howell MD [address] [place] [phone] PCP - General Emergency Medicine 11/12/23 documented as of this encounter
--- OUTSIDE RECORDS SUMMARY | 2025-10-12 21:52 | XMS_ITS | Encounter Summary ---
Author Organization [employer] ([place], [place], [place], [place], [place]) Address [address] [place] [address] Care Team Providers Care Tassel Clipper Name Role Phone Jay Howell MD Primary Care Provider [phone] Encounter Details Date Type Department Care Team (Late st Contact Info) Description 08/29/2020 Transcribed Document [facility] [place] [address] [place] [address] ProviderJessie MD [address] [place] [address] Social History Tobacco Use Types Packs/Day Years Used Date Smoking Tobacco: Never Assessed Comments Unknown Sex and Gender Information Value Date Recorded Sex Assigned at Not on file Legal Sex Female 7:30 PM CDT Gender Identity Not on file Sexual Orientation Not on file documented as of this encounter Miscellaneous Notes * Cerner Conversion Note - Jessie ProviderMD - 08/29/2020 12:42 PM RN HEMODIALYSIS CHARGE Patient: SKYLER MONTOYA Age: 79 Years Sex: [...] EST INR 1.5 (High) 08/29/2020 01:38 EST documented in this encounter Plan of Treatment Not on file documented as of this encounter Visit Diagnoses Not on filedocumented in this encounter Care Teams Tassel Clipper Relationship Specialty Start Date End Date Jay Howell MD [address] [place] [phone] PCP - General Emergency Medicine 11/12/23 documented as of this encounter
--- OUTSIDE RECORDS SUMMARY | 2025-10-12 21:52 | XMS_ITS | Encounter Summary ---
Author Organization [employer] ([place], [place], [place], [place], [place]) Address [address] [place] [address] Care Team Providers Care Commercial Escrow Assistant Name Role Phone Jay Howell MD Primary Care Provider [phone] Encounter Details Date Type Department Care Team (Late st Contact Info) Description 03/17/2021 Transcribed Document [facility] [place] [address] [place] [address] ProviderJessie MD [address] [place], [place] [phone] Social History Tobacco Use Types Packs/Day Years Used Date Smoking Tobacco: Never Assessed Comments Unknown Sex and Gender Information Value Date Recorded Sex Assigned at Not on file Legal Sex Female 7:30 PM CDT Gender Identity Not on file Sexual Orientation Not on file documented as of this encounter Miscellaneous Notes * Cerner Conversion Note - Jessie ProviderMD - 03/17/2021 6:00 PM CDT Pain [...] of the form. Electronically signed by Sivan, [facility] Conversion High School Foreign Language Tutor Cerner at 02/04/2023 2:00 PM CDT documented in this encounter Plan of Treatment Not on file documented as of this encounter Visit Diagnoses Not on filedocumented in this encounter Care Teams Commercial Escrow Assistant Relationship Specialty Start Date End Date Jay Howell MD [address] [place] [phone] PCP - General Emergency Medicine 11/12/23 documented as of this encounter
--- OUTSIDE RECORDS SUMMARY | 2025-10-12 21:53 | XMS_ITS | Encounter Summary ---
Author Organization [employer] ([place], [place], [place], [place], [place]) Address [address] [place] [address] Care Team Providers Care Supply Chain Technician Name Role Phone Jay Howell MD Primary Care Provider [phone] Encounter Details Date Type Department Care Team (Late st Contact Info) Description 09/08/2020 Transcribed Document [facility] [place] Medicine [address] [place] [address] ProviderJessie MD [address] [place] [address]191 Social History Tobacco Use Types Packs/Day Years Used Date Smoking Tobacco: Never Assessed Comments Unknown Sex and Gender Information Value Date Recorded Sex Assigned at Not on file Legal Sex Female 7:30 PM CDT Gender Identity Not on file Sexual Orientation Not on file documented as of this encounter Miscellaneous Notes * Cerner Conversion Note - Jessie Yuen MD - 09/08/2020 5:27 PM BOTTLING ATTENDANT Patient: SKYLER MONTOYA Age: 79 Years [...] on filedocumented in this encounter Care Teams Supply Chain Technician Relationship Specialty Start Date End Date Jay Howell MD [address] [place] [phone] PCP - General Emergency Medicine 11/12/23 documented as of this encounter
--- OUTSIDE RECORDS SUMMARY | 2025-10-12 21:53 | XMS_ITS | Encounter Summary ---
Author Organization [email or web address] ([place], [place], [place], [place], [place]) Address [address] [place] [address] Care Team Providers Care Senior Research Consultant Name Role Phone Jay Howell MD Primary Care Provider [phone] Encounter Details Date Type Department Care Team (Late st Contact Info) Description 03/19/2021 Transcribed Document [facility] [place] Family Medicine [address] [place] [address] ProviderJessie MD [address] [place], [place] [phone] Social History Tobacco Use Types Packs/Day Years Used Date Smoking Tobacco: Never Assessed Comments Unknown Sex and Gender Information Value Date Recorded Sex Assigned at Not on file Legal Sex Female 7:30 PM CDT Gender Identity Not on file Sexual Orientation Not on file documented as of this encounter Miscellaneous Notes * Cerner Conversion Note - Jessie ProviderMD - 03/19/2021 2:23 PM CDT Patient [...] these instructions at home: Medicines ??? Take waga-cox-kuazoai and prescription medicines only as told by [...] provider. Document Revised: 01/25/2020 Document Reviewed: 08/22/2019 [employer] Patient Education ? 2019 [employer]. Orthopedics Cast or Splint Care, Adult Casts [...] activities are safe for you. ??? Take xptb-qkj-hlpyfop and prescription medicines only as told by [...] provider. Document Revised: 07/31/2018 Document Reviewed: 03/26/2017 [employer] Patient Education ? 2020 [employer]. Electronically signed by Gayle Finnegan Conversion Senior Business Intelligence Analyst Cerner at 02/04/2023 2:02 PM CDT documented in this encounter Plan of Treatment Not on file documented as of this encounter Visit Diagnoses Not on filedocumented in this encounter Care Teams Senior Research Consultant Relationship Specialty Start Date End Date Jay Howell MD [address] [place] [phone] PCP - General Emergency Medicine 11/12/23 documented as of this encounter
--- OUTSIDE RECORDS SUMMARY | 2025-10-12 21:53 | XMS_ITS | Encounter Summary ---
Author Organization [employer] ([place], [place], [place], [place], [place]) Address [address] [place] [address] Care Team Providers Care Surgical Territory Manager Name Role Phone Jay Howell MD Primary Care Provider [phone] Encounter Details Date Type Department Care Team (Late st Contact Info) Description 08/25/2020 Transcribed Document [facility] [place] [address] [place] [address] ProviderJessie MD [address] [place] [address] Social History Tobacco Use Types Packs/Day Years Used Date Smoking Tobacco: Never Assessed Comments Unknown Sex and Gender Information Value Date Recorded Sex Assigned at Not on file Legal Sex Female 7:30 PM CDT Gender Identity Not on file Sexual Orientation Not on file documented as of this encounter Miscellaneous Notes * Cerner Conversion Note - Jessie ProviderMD - 08/25/2020 6:14 PM CRITICAL CARE NURSE Admission History, Adult Entered On: 08/25/2020 18:21 [...] Ambulatory Legal Guardian : Spouse Support Person/Patient Configuration Management Architect : Yes Support Person/Pt Rep Name : [place] Contact Password : Marvin Support Person/Pt Rep Contact Information : [phone] Want Family/Rep/Phys Notified of Admit : No [...] Obtained From : Patient Primary Language : Egyptian Preferred Communication Mode : Verbal Communication Barrier : None Survey Technologist Needed : No ROMEO PADRON RN - [...] Level : 46 or > High Risk [place] Fall Interventions : Adequate lighting, Assistive devices [...] Source : Stated Height Entry Format : [place] Height, Feet : 5 ft(Converted to: 152 cm, 60 Inch) Height, Inches : 3 Inch(Converted to: 0 ft 3 Inch, 7.62 cm) Clinical Height : 160.02 cm Weight Source : Bed scale Weight Entry Format : [place] Clinical Dosing Weight : 69.09 kg Weight, Pounds : 152 lb Body Surface Area (BSA) : 1.72 m2 Body Mass Index : 27 kg/m2 (HI) [place] Body Weight : 52 kg ROMEO PADRON [...] Risk Level : Patient not at risk ROEMO PADRON RN - 08/25/2020 18:14 EST [place] Suicide Severity Rating Scale (C-SSRS) CSSRS Past [...] - 08/25/2020 18:14 EST Electronically signed by [facility] Conversion Manager Software Cerner at 02/04/2023 2:14 PM CDT documented in this encounter Plan of Treatment Not on file documented as of this encounter Visit Diagnoses Not on filedocumented in this encounter Care Teams Surgical Territory Manager Relationship Specialty Start Date End Date Jay Howell MD [address] [place] [phone] PCP - General Emergency Medicine 11/12/23 documented as of this encounter
--- OUTSIDE RECORDS SUMMARY | 2025-10-12 21:53 | XMS_ITS | Encounter Summary ---
Author Organization [employer] ([place], [place], [place], [place], [place]) Address [address] [place] [address] Care Team Providers Care Camp Maintenance Supervisor Name Role Phone Jay Howell MD Primary Care Provider [phone] Encounter Details Date Type Department Care Team (Late st Contact Info) Description 03/19/2021 Transcribed Document [facility] [place] [facility] [place] [address] [place] [address] ProviderJessie MD [address] [place], [place] [phone] Social History Tobacco Use Types Packs/Day Years Used Date Smoking Tobacco: Never Assessed Comments Unknown Sex and Gender Information Value Date Recorded Sex Assigned at Not on file Legal Sex Female 7:30 PM CDT Gender Identity Not on file Sexual Orientation Not on file documented as of this encounter Miscellaneous Notes * Cerner Conversion Note - Jessie ProviderMD - 03/19/2021 6:00 AM CDT Pain [...] of the form. Electronically signed by Sivan, [facility] Conversion Controller Instructor Cerner at 02/04/2023 2:02 PM CDT documented in this encounter Plan of Treatment Not on file documented as of this encounter Visit Diagnoses Not on filedocumented in this encounter Care Teams Camp Maintenance Supervisor Relationship Specialty Start Date End Date Jay Howell MD [address] [place] [phone] PCP - General Emergency Medicine 11/12/23 documented as of this encounter
--- OUTSIDE RECORDS SUMMARY | 2025-10-12 21:53 | XMS_ITS | Encounter Summary ---
Author Organization [employer] ([place], [place], [place], [place], [place]) Address [address] [place] [address] Care Team Providers Care Ciaio Lumite Injector Name Role Phone Jay Howell MD Primary Care Provider [phone] Encounter Details Date Type Department Care Team (Late st Contact Info) Description 09/01/2020 Transcribed Document [facility] [place] Medicine [address] [place] [address] ProviderJessie MD [address] [place] [address] Social History Tobacco Use Types Packs/Day [...] Jessie Yuen MD - 09/01/2020 9:16 AM CVICU RN Patient: SKYLER MONTOYA Age: 79 years Sex: Female : 1940 Associated Diagnoses: None Author: Cheng Jennings, Batch Dumper Cert Ms. Montoya is 79 yo female [...] 98.3 (AUG 31 12:11) Apical HR 78 (AUG 16 08:56) [...] 16 (NOV 13) 10 (NOV 11) 10 (AUG 26) 12 (AUG 25) Cr 0.70 (AUG 29) [...] closely with daily INR. 6. D/W Gia Brwon - planning to discharge on 3mg daily with Lovenox 70mg SQ bid bridge Thank you for this consult, Kip Eberwein, RPh Electronically signed by Interface, [facility] Conversion Tele Marketing Executive Cerner at 02/04/2023 2:20 PM CDT documented in this encounter Plan of Treatment Not on file documented as of this encounter Visit Diagnoses Not on filedocumented in this encounter Care Teams Ciaio Lumite Injector Relationship Specialty Start Date End Date Jay Howell MD [address] [place] [phone] PCP - General Emergency Medicine 11/12/23 documented as of this encounter
--- OUTSIDE RECORDS SUMMARY | 2025-10-12 21:53 | XMS_ITS | Encounter Summary ---
Author Organization [employer] ([place], [place], [place], [place], [place]) Address [address] [place] [address] Care Team Providers Care Insulation Batting Machine Operator Name Role Phone Jay Howell MD Primary Care Provider [phone] Encounter Details Date Type Department Care Team (Late st Contact Info) Description 08/25/2020 Transcribed Document [facility] [place] [address] [place] [address] ProviderJessie MD [address] [place] [phone] Social History Tobacco Use Types Packs/Day Years Used Date Smoking Tobacco: Never Assessed Comments Unknown Sex and Gender Information Value Date Recorded Sex Assigned at Not on file Legal Sex Female 7:30 PM CDT Gender Identity Not on file Sexual Orientation Not on file documented as of this encounter Miscellaneous Notes * Cerner Conversion Note - Jessie Yuen MD - 08/25/2020 9:27 AM POMOLOGIST Patient: SKYLER MONTOYA Age: 79 years Sex: Female : 1940 Associated Diagnoses: None Author: ELIAS MENDOZA, PharmD, BCPS 79yo female with Left lower [...] (AUG 25:03) 16 (AUG 25:41) 20 (AUG 25:03) SBP H 221 (AUG 25:03) H 197 (AUG 25 05:51) H 221 (AUG 25:03) DBP 90 (AUG 25:03) 80 (AUG 25:07) H 133 (AUG 25 05:51) MAP 115 (AUG 25:07) 115 (AUG 25:07) 158 (AUG 25 05:51) SpO2 97 (AUG 25:03) 95 (AUG 25:07) 97 (AUG 25:41) Labs: [...] will monitor for changes. Rx will follow, Kell PortilloD,BCPS,BCCCP #[phone] Electronically signed by Sivan, [facility] Conversion Hemming And Tacking Machine Operator Cerner at 02/04/2023 2:13 PM CDT documented in this encounter Plan of Treatment Not on file documented as of this encounter Visit Diagnoses Not on filedocumented in this encounter Care Teams Insulation Batting Machine Operator Relationship Specialty Start Date End Date Jay Howell MD [address] [place] [phone] PCP - General Emergency Medicine 11/12/23 documented as of this encounter
--- OUTSIDE RECORDS SUMMARY | 2025-10-12 21:53 | XMS_ITS | Encounter Summary ---
Author Organization [employer] ([place], [place], [place], [place], [place]) Address [address] [place] [address] Care Team Providers Care Ceramic Maker Demonstrator Name Role Phone Jay Howell MD Primary Care Provider [phone] Encounter Details Date Type Department Care Team (Late st Contact Info) Description 08/26/2020 Transcribed Document [facility] [place] Family Medicine [address] [place] [address] ProviderJessie MD [address] [place], [place] [phone] Social History Tobacco Use Types Packs/Day Years Used Date Smoking Tobacco: Never Assessed Comments Unknown Sex and Gender Information Value Date Recorded Sex Assigned at Not on file Legal Sex Female 7:30 PM CDT Gender Identity Not on file Sexual Orientation Not on file documented as of this encounter Miscellaneous Notes * Cerner Conversion Note - Jessie ProviderMD - 08/26/2020 10:39 AM WEB MARKETING ANALYST UM Authorization Entered On: 08/26/2020 10:39 EST Performed On: 08/26/2020 10:39 EST by MARILYNN RAMÍREZ, RN-Utilization Review Primary Insurance Authorization Authorization and Policy Numbers : Insurance 1 Health Plan: MEDICARE Policy Number: [id number] Authorization Number: Insurance 2 Health Plan: AARP N Policy Number: [id number] Authorization Number: Insurance Primary Name : MEDICARE Policy Number: [id number] Authorized Service Begin Date-Primary : 08/25/2020 EST Historical Authorization Comments-Primary : No Authorization Comments Found MARILYNN RAMÍREZ, RN-Utilization Review - 08/26/2020 10:39 EST Electronically signed by Sivan [facility] Conversion Hospital Administrator Cerner at 02/04/2023 2:22 PM CDT documented in this encounter Plan of Treatment Not on file documented as of this encounter Visit Diagnoses Not on filedocumented in this encounter Care Teams Ceramic Maker Demonstrator Relationship Specialty Start Date End Date Jay Howell MD [address] [place] [phone] PCP - General Emergency Medicine 11/12/23 documented as of this encounter
--- OUTSIDE RECORDS SUMMARY | 2025-10-12 21:53 | XMS_ITS | Encounter Summary ---
Author Organization [employer] ([place], [place], [place], [place], [place]) Address [address] [place] [address] Care Team Providers Care Maintenance Mechanic Elevators Name Role Phone Jay Howell MD Primary Care Provider [phone] Encounter Details Date Type Department Care Team (Late st Contact Info) Description 08/25/2020 Transcribed Document [facility] [place] [address] [place] [address] ProviderJessie MD [address] [place] [address] [phone] Social History Tobacco Use Types Packs/Day Years Used Date Smoking Tobacco: Never Assessed Comments Unknown Sex and Gender Information Value Date Recorded Sex Assigned at Not on file Legal Sex Female 7:30 PM CDT Gender Identity Not on file Sexual Orientation Not on file documented as of this encounter Miscellaneous Notes * Cerner Conversion Note - Jessie ProviderMD - 08/25/2020 5:06 PM PYTHON ENGINEER Meds to Bed Enrollment Entered On: 08/26/2020 7:23 EST Performed On: 08/25/2020 17:06 EST by Elias Menendez PHARMACY TECH LEAD Meds to Bed Enrollment Patient Enrollment Decision: : Yes/enroll in meds to bed program Elias Menendez PHARMACY TECH LEAD - 08/26/2020 7:23 EST Electronically signed by Gayle Finnegan Conversion Journeyman Sheet Metal Worker Cerner at 02/04/2023 2:13 PM CDT documented in this encounter Plan of Treatment Not on file documented as of this encounter Visit Diagnoses Not on filedocumented in this encounter Care Teams Maintenance Mechanic Elevators Relationship Specialty Start Date End Date Jay Howell MD [address] [place] [phone] PCP - General Emergency Medicine 11/12/23 documented as of this encounter
--- OUTSIDE RECORDS SUMMARY | 2025-10-12 21:53 | XMS_ITS | Encounter Summary ---
Author Organization [employer] ([place], [place], [place], [place], [place]) Address [address] [place] [address] Care Team Providers Care Rod And Tube Straightener Name Role Phone Jay Howell MD Primary Care Provider [phone] Encounter Details Date Type Department Care Team (Late st Contact Info) Description 08/31/2020 Transcribed Document [facility] [place] [address] [place] [address] ProviderJessie MD [address] [place] [phone] Social History Tobacco Use Types Packs/Day Years Used Date Smoking Tobacco: Never Assessed Comments Unknown Sex and Gender Information Value Date Recorded Sex Assigned at Not on file Legal Sex Female 7:30 PM CDT Gender Identity Not on file Sexual Orientation Not on file documented as of this encounter Miscellaneous Notes * Cerner Conversion Note - Jessie Yuen MD - 08/31/2020 9:43 AM SOLID WASTE LANDFILL TECHNICIAN Patient: SKYLER MONTOYA Age: 79 years [...] mg, 6 mL, 112 mL/Hr, IV Piggyback, [id number] DuoNeb 0.5 mg-2.5 mg/3 mL inhalation solution: [...] Tab, Oral, Daily, 30 Tab, 0 Refill(s) Red Jacket 7.5 mg-325 mg oral tablet: 1 Tab, [...] mL 300 mg 6 mL, IV Piggyback, [id number] dorzolamide 2% ophth soln 10 mL 1 [...] Confirmed Coronary artery disease / SNOMED CT 6179272235 / Confirmed Stented coronary artery / SNOMED CT 5756368094 / Confirmed High blood pressure / SNOMED CT 18419470 / Confirmed Hyperlipidemia / SNOMED CT 56249292 / Confirmed COPD / SNOMED CT 00356995 / Confirmed GERD - Gastro-esophageal reflux disease / SNOMED CT 8790256848 / Confirmed Multiple renal cysts / SNOMED CT 198407498 / Confirmed Arthritis / SNOMED CT 4079534 / Confirmed Diabetes mellitus / SNOMED CT 132665968 / Confirmed Emphysema / SNOMED CT 772376204 / Confirmed Apnea, sleep / SNOMED CT 360247430 / Confirmed Hx of pulmonary embolus / SNOMED CT 553243144 / Confirmed Chronic anticoagulation / SNOMED CT 489101928 / Confirmed Atrial fibrillation with RVR / SNOMED CT 1747023271 / Confirmed Chest pain / SNOMED CT 78228332 / Complaint of History of obstructive sleep apnea / IMO 35434160 / Confirmed Resolved: UTI - Urinary tract infection / SNOMED CT 8513728890 Canceled: History of obstructive sleep apnea / IMO 06653903, Active Problems (20) Apnea, sleep Arthritis Atrial [...] 6.2 (AUG 31) 4.9 (AUG 29) 4.5 (AUG 28) 5.1 (NOV ) HB L 10.8 (AUG 15) L 10.6 (AUG 29) L 10.5 (NOV 12) L 10.3 (NOV [...] 10) 12 (NOV 09) Cr 0.70 (AUG 13) 0.70 (NOV 11) 0.70 (NOV 10) 0.90 (NOV 09) Glu R H 108 (AUG 13) H 115 (NOV 11) H 109 (NOV 10) H 120 (NOV 09) Ca 9.1 (AUG 13) 8.8 (NOV 11) 8.4 (AUG 26) 9.1 (AUG 25) Lactic [...] based on INR Electronically signed by Sivan [facility] Conversion Wood Heel Back Liner Cerner at 02/04/2023 2:09 PM CDT documented in this encounter Plan of Treatment Not on file documented as of this encounter Visit Diagnoses Not on filedocumented in this encounter Care Teams Rod And Tube Straightener Relationship Specialty Start Date End Date Jay Howell MD [address] [place] [phone] PCP - General Emergency Medicine 11/12/23 documented as of this encounter
--- OUTSIDE RECORDS SUMMARY | 2025-10-12 21:53 | XMS_ITS | Encounter Summary ---
Author Organization [employer] ([place], [place], [place], [place], [place]) Address [address] [place] [address] Care Team Providers Care Stockbroker Name Role Phone Jay Howell MD Primary Care Provider [phone] Encounter Details Date Type Department Care Team (Late st Contact Info) Description 09/04/2020 Transcribed Document [facility] [place] [address] [place] [address] ProviderJessie MD [address] [place] [phone] Social History Tobacco Use Types Packs/Day Years Used Date Smoking Tobacco: Never Assessed Comments Unknown Sex and Gender Information Value Date Recorded Sex Assigned at Not on file Legal Sex Female 7:30 PM CDT Gender Identity Not on file Sexual Orientation Not on file documented as of this encounter Miscellaneous Notes * Cerner Conversion Note - Jessie Yuen MD - 09/04/2020 2:10 AM MAIL CARRIER AND CLERK ED Discharge Entered On: 09/04/2020 4:14 EST [...] 09/04/2020 4:14 EST Electronically signed by Sivan, [facility] Conversion Dental Office Manager Cerner at 02/04/2023 2:10 PM CDT documented in this encounter Plan of Treatment Not on file documented as of this encounter Visit Diagnoses Not on filedocumented in this encounter Care Teams Stockbroker Relationship Specialty Start Date End Date Jay Howell MD [address] [place] [phone] PCP - General Emergency Medicine 11/12/23 documented as of this encounter
--- OUTSIDE RECORDS SUMMARY | 2025-10-12 21:53 | XMS_ITS | Encounter Summary ---
Author Organization [employer] ([place], [place], [place], [place], [place]) Address [address] [place] [address] Care Team Providers Care Burn Table Operator Name Role Phone Jay Howell MD Primary Care Provider [phone] Encounter Details Date Type Department Care Team (Late st Contact Info) Description 08/26/2020 Transcribed Document [facility] [place] [address] [place] [address] ProviderJessie MD [address] [place], [place] [phone] Social History Tobacco Use Types Packs/Day Years Used Date Smoking Tobacco: Never Assessed Comments Unknown Sex and Gender Information Value Date Recorded Sex Assigned at Not on file Legal Sex Female 7:30 PM CDT Gender Identity Not on file Sexual Orientation Not on file documented as of this encounter Miscellaneous Notes * Cerner Conversion Note - Historical ProviderMD - 08/26/2020 2:23 PM BAIT PAINTER Patient: SKYLER MONTOYA Age: 79 Years Sex: Female : 1940 Indication for Surgery 79 year old lady, a patient of Dr. Avtar oMeller, admitted 08/25/20 with a LEFT anterior distal [...] LEFT PT occlusion - distal *Operation RIGHT BRAKE OPERATOR HELPER access - ultrasound guided Aortogram with LEFT lower extremity run-off LEFT PT angioplasty (2.5-2c352sv Nanocross) LEFT peroneal angioplasty (2.5-0o776wd Nanocross) RIGHT BRAKE OPERATOR HELPER closure (Angioseal) LEFT leg debridement [...] and EIA are patent. The common femoral (BRAKE OPERATOR HELPER) artery is patent dividing into [...] The patient was placed supine on the clinical genetics laboratory chief table and the BILATERAL groins and LEFT leg were prepped and draped in usual sterile fashion. The patient was identified as SKYLER MONTOYA by the entire procedural team as per time out protocol. Next, local anesthetic was infiltrated into the groin region. The RIGHT BRAKE OPERATOR HELPER was accessed in retrograde fashion under ultrasound guidance using micropuncture technique and a 5Fr sheath was installed. Next, an Omni flush catheter was advanced into the infrarenal aorta and an aortogram was obtained; see above. Next, the catheter and 035/260 glide advantage wire (GAW) were directed up-and-over into the LEFT BRAKE OPERATOR HELPER and additional run-off views were obtained in station; see above. Next, the sheath was upsized to a 6Fr/45cm destination sheath which was positioned in the LEFT BRAKE OPERATOR HELPER. The patient was then systemically [...] (08/26/20 13:48:53) Electronically signed by Sivan [facility] Conversion Transcription Typist Cerner at 02/04/2023 2:09 PM CDT documented in this encounter Plan of Treatment Not on file documented as of this encounter Visit Diagnoses Not on filedocumented in this encounter Care Teams Burn Table Operator Relationship Specialty Start Date End Date Jay Howell MD [address] [place] [phone] PCP - General Emergency Medicine 11/12/23 documented as of this encounter
--- OUTSIDE RECORDS SUMMARY | 2025-10-12 21:53 | XMS_ITS | Encounter Summary ---
Author Organization [employer] ([place], [place], [place], [place], [place]) Address [address] [place] [address] Care Team Providers Care Resort Desk Clerk Name Role Phone Jay Howell MD Primary Care Provider [phone] Encounter Details Date Type Department Care Team (Late st Contact Info) Description 03/18/2021 Transcribed Document [facility] [place] [address] [place] [address] ProviderJessie MD [address] [place], [place] [address] Social History Tobacco Use Types Packs/Day Years Used Date Smoking Tobacco: Never Assessed Comments Unknown Sex and Gender Information Value Date Recorded Sex Assigned at Not on file Legal Sex Female 7:30 PM CDT Gender Identity Not on file Sexual Orientation Not on file documented as of this encounter Miscellaneous Notes * Cerner Conversion Note - Jessie ProviderMD - 03/18/2021 12:00 PM CDT Pain Assessment Entered On: 03/18/2021 17:56 EDT Performed On: 03/18/2021 15:01 EDT by EVA RICHARDSON RN Intervention Information: oxyCODONE Performed by EVA RICHARDSON RN on 03/18/2021 14:01:00 EDT oxyCODONE,5mg Oral Pain Assessment Pain Scale Goal : 5 Pain Improved by Intervention : Yes EVA RICHARDSON RN - 03/18/2021 17:56 EDT documented in this encounter Plan of Treatment Not on file documented as of this encounter Visit Diagnoses Not on filedocumented in this encounter Care Teams Resort Desk Clerk Relationship Specialty Start Date End Date Jay Howell MD [address] [place] [phone] PCP - General Emergency Medicine 11/12/23 documented as of this encounter
--- OUTSIDE RECORDS SUMMARY | 2025-10-12 21:53 | XMS_ITS | Encounter Summary ---
Author Organization [employer] ([place], [place], [place], [place], [place]) Address [address] [place] [address] Care Team Providers Care Storage Brine Worker Name Role Phone Jay Howell MD Primary Care Provider [phone] Encounter Details Date Type Department Care Team (Late st Contact Info) Description 08/31/2020 Transcribed Document [facility] [place] Family Medicine [address] [place] [address] ProviderJessie MD [address] [place] [address] Social History Tobacco Use Types Packs/Day Years Used Date Smoking Tobacco: Never Assessed Comments Unknown Sex and Gender Information Value Date Recorded Sex Assigned at Not on file Legal Sex Female 7:30 PM CDT Gender Identity Not on file Sexual Orientation Not on file documented as of this encounter Miscellaneous Notes * Cerner Conversion Note - Jessie Yuen MD - 08/31/2020 10:44 AM PHOTOLETTERING MACHINE OPERATOR Patient: SKYLER MONTOYA Age: 79 [...] level of muscle per surgery *Operation RIGHT CARTRIDGE ASSEMBLING MACHINE ADJUSTER access - ultrasound guided Aortogram with LEFT lower extremity run-off LEFT PT angioplasty (2.5-3d410za Nanocross) LEFT peroneal angioplasty (2.5-7i823sl Nanocross) RIGHT CARTRIDGE ASSEMBLING MACHINE ADJUSTER closure (Angioseal) LEFT leg debridement 08/31/20 seen [...] 44 (AUG 31 01:38) L 54 (AUG 31:) MAP 79 (AUG 31 06:07) 69 (AUG 30:) 79 (AUG 31 06:07) SpO2 95 (AUG 31 06:07) 95 (AUG 30:06) 98 (AUG 30:) GENERAL: [...] Level 3.8 mmol/L 08/30/2020 04:13 MICRO: ACC: [id number] ORDER: Culture Anaerobic DATE: 08/26/2020 13:56 SOURCE: Surgical Swab SITE: Leg Lower L Reports Final 08/31/2020 07:45 No Anaerobic growth Pre 08/28/2020 07:01 No Anaerobic growth Pre 08/27/2020 07:47 Culture in progress == ACC: [id number] ORDER: Culture Blood DATE: 08/25/2020 05:01 SOURCE: Blood SITE: Reports Final 08/30/2020 06:01 No growth at 5 days. Pre 08/29/2020 06:01 No growth at 4 days. Pre 08/28/2020 06:01 No growth at 3 days. Pre 08/27/2020 06:01 No growth at 2 days. Pre 08/26/2020 06:01 No growth at 1 day. Pre 08/25/2020 23:02 Culture less than 24 Hrs old == ACC: [id number] ORDER: Culture Blood DATE: 08/25/2020 05:01 SOURCE: Blood SITE: Reports Final 08/30/2020 06:01 No growth at 5 days. Pre 08/29/2020 06:02 No growth at 4 days. Pre 08/28/2020 06:01 No growth at 3 days. Pre 08/27/2020 06:01 No growth at 2 days. Pre 08/26/2020 06:01 No growth at 1 day. Pre 08/25/2020 23:02 Culture less than 24 Hrs old == ACC: [id number] ORDER: Culture Wound and Stain DATE: 08/26/2020 15:23 SOURCE: Surgical Swab SITE: Leg Lower L Reports Final 08/29/2020 08:29 No growth Pre 08/27/2020 07:14 No growth GS 08/26/2020 18:13 Few White Blood Cells No organisms seen. == ACC: [id number] ORDER: Culture Wound and Stain DATE: 08/25/2020 05:00 SOURCE: Wound SITE: Leg Lower L Reports Final 08/28/2020 08:57 No growth Pre 08/26/2020 06:23 No growth GS 08/25/2020 07:26 No organisms seen. Few White Blood Cells Rare epithelial cells == ACC: [id number] ORDER: Culture AFB and Stain DATE: 08/26/2020 13:56 SOURCE: Surgical Swab SITE: Leg Lower L Reports AFS 08/27/2020 13:07 No Acid Fast Bacilli seen == ACC: [id number] ORDER: Culture Fungus DATE: 08/26/2020 13:56 SOURCE: [...] closely after discharge Electronically signed by Sivan [facility] Conversion Tobacco Grower Cerner at 02/04/2023 2:11 PM CDT documented in this encounter Plan of Treatment Not on file documented as of this encounter Visit Diagnoses Not on filedocumented in this encounter Care Teams Storage Brine Worker Relationship Specialty Start Date End Date Jay Howell MD [address] [place] [phone] PCP - General Emergency Medicine 11/12/23 documented as of this encounter
--- OUTSIDE RECORDS SUMMARY | 2025-10-12 21:53 | XMS_ITS | Encounter Summary ---
Author Organization [employer] ([place], [place], [place], [place], [place]) Address [address] [place] [address] Care Team Providers Care Stations Superintendent Name Role Phone Jay Howell MD Primary Care Provider [phone] Encounter Details Date Type Department Care Team (Late st Contact Info) Description 08/26/2020 Transcribed Document [facility] [place] [address] [place] [address] ProviderJessie MD [address] [place] [phone] Social History Tobacco Use Types Packs/Day Years Used Date Smoking Tobacco: Never Assessed Comments Unknown Sex and Gender Information Value Date Recorded Sex Assigned at Not on file Legal Sex Female 7:30 PM CDT Gender Identity Not on file Sexual Orientation Not on file documented as of this encounter Miscellaneous Notes * [employer]ner Conversion Note - Jessie ProviderMD - 08/26/2020 2:00 AM RN HEART Swimming Coach Details Entered On: 08/26/2020 2:00 EST Performed On: 08/26/2020 2:00 EST by Kervin Kulkarni RN Order Details Isolation Precautions Order Detail : Standard Precautions Order Detail : N/A IV Order Detail : 1 Oxygen Order Detail : 0 Lift/Transfer : Independent Room Service : Not Appropriate Patient Needs Meds Crushed/Liquid : No Kervin Kulkarni RN - 08/26/2020 1:56 EST Electronically signed by [facility] Conversion Milling Operator Cerner at 02/04/2023 2:10 PM CDT documented in this encounter Plan of Treatment Not on file documented as of this encounter Visit Diagnoses Not on filedocumented in this encounter Care Teams Stations Superintendent Relationship Specialty Start Date End Date Jay Howell MD [address] [place] [phone] PCP - General Emergency Medicine 11/12/23 documented as of this encounter
--- OUTSIDE RECORDS SUMMARY | 2025-10-12 21:53 | XMS_ITS | Encounter Summary ---
Author Organization [employer] ([place], [place], [place], [place], [place]) Address [address] [place] [address] Care Team Providers Care Wool Hat Sanding Machine Operator Name Role Phone Jay Howell MD Primary Care Provider [phone] Encounter Details Date Type Department Care Team (Late st Contact Info) Description 08/26/2020 Transcribed Document [facility] [place] [address] [place] [address] ProviderJessie MD [address] [place], [place] [phone] Social History Tobacco Use Types Packs/Day Years Used Date Smoking Tobacco: Never Assessed Comments Unknown Sex and Gender Information Value Date Recorded Sex Assigned at Not on file Legal Sex Female 7:30 PM CDT Gender Identity Not on file Sexual Orientation Not on file documented as of this encounter Miscellaneous Notes * Cerner Conversion Note - Jessie ProviderMD - 08/26/2020 1:15 PM IMPROVEMENT DIRECTOR [facility] Main OR IntraOp Summary Primary Physician: KAELA HEBERT MD Finalized Date/Time: 08/28/20 09:26:05 Pt. Name: SKYLER MONTOYAO.B./Sex: 1940 Female Med Rec #: [id number] Physician: BETH DAVALOS MD-INT Financial #: [id number] Pt. Type: I Room/Bed: [facility]/ Admit/Disch: 08/25/20 05:53:00 - Institution: [facility] IntraOp Case Attendance Entry 1 Entry 2 Entry 3 Case Attendee KAELA HEBERT MD GRAFF, WAYNE B, MD-ANS SWINFORD, ASHLEE, CRNA Role Performed Surgeon/Proceduralist, Anesthesiologist of WIRELESS FIELD TECHNICIAN/Nurse Automotive Manager First Record Time In 08/26/20 13:00:00 08/26/20 [...] Medrano, Saray Linton ST Role Performed Student Health And Safety Consultant, First Scrub, First Time In 08/26/20 13:00:00 [...] OTHER, ATTENDEE #3 Role Performed Scrub, First Tele Marketing Executive Tele Marketing Executive Time In 08/26/20 13:00:00 08/26/20 13:00:00 08/26/20 [...] By: Radha Medrano RN Napier, Elizabeth A, Radha Wright RN 08/26/20 14:32:23 08/26/20 14:32:23 08/26/20 14:32:23 Entry 10 Case Attendee Jos Ledezma, Doctor Of Osteopathy Role Performed Scrub, First Time In 08/26/20 13:50:00 Time Out 08/26/20 14:23:00 Procedure Wound Debridement Lower Extremity(Left), Aortogram Abdominal with Runoff(Left), Angioplasty Percutaneous Transluminal(Left) Other Attendee Superficial Wound Closed By: Last Modified By: Radha Medrano RN 08/26/20 14:32:23 [facility] IntraOp Case Attendance Audit 08/26/20 14:32:23 Senior Net Developer: AMAN Modifier: AMAN 1 <+> Time Out [...] with Runoff(Left), Angioplasty Percutaneous Transluminal(Left) 08/26/20 13:55:12 Senior Net Developer: EANAPIER Modifier: EANAPIER 6 <+> Time Out 6 <*> Procedure Wound Debridement Lower Extremity(Left), Aortogram Abdominal with Runoff(Left), Angioplasty Percutaneous Transluminal(Left) 7 <+> Time Out 7 <*> Procedure Wound Debridement Lower Extremity(Left), Aortogram Abdominal with Runoff(Left), Angioplasty Percutaneous Transluminal(Left) <+> 10 Case Attendee <+> 10 Role Performed <+> 10 Time In <+> 10 Procedure 08/26/20 13:49:11 Senior Net Developer: EANAPIER Modifier: EANAPIER 1 <*> Procedure Wound [...] Extremity(Left), Aortogram Abdominal with Runoff(Left) 08/26/20 13:47:56 Senior Net Developer: EANAPIER Modifier: EANAPIER 1 <*> Procedure Wound [...] Procedure Wound Debridement Lower Extremity(Left) 08/26/20 13:38:05 Senior Net Developer: EANAPIER Modifier: EANAPIER <+> 1 Time In [...] HOSPITAL IntraOp Case Times Audit 08/26/20 14:22:56 Senior Net Developer: EANAPIER Modifier: EANAPIER <+> 1 Out Room Time <+> 1 Stop Time 08/26/20 14:14:55 Senior Net Developer: EANAPIER Modifier: EANAPIER <+> 1 Stop Time [facility] IntraOp Cautery Entry 1 ESU Identification Cautery Type Monopolar ESU ID Number [id number] ID Type Hospital Number Cautery Settings Cut [...] HOSPITAL IntraOp Counts Verification Audit 08/26/20 13:49:13 Senior Net Developer: EANAPIER Modifier: EANAPIER 1 <*> Procedure Wound Debridement Lower Extremity(Left), Aortogram Abdominal with Runoff(Left) 08/26/20 13:47:59 Senior Net Developer: EANAPIER Modifier: EANAPIER 1 <*> Procedure Wound Debridement Lower Extremity(Left) [facility] IntraOp Counts Final Entry 1 Procedure Wound Debridement Lower Extremity(Left), Aortogram Abdominal with Runoff(Left), Angioplasty Percutaneous Transluminal(Left) Final Count Info Count Type Sponge, Sharps, Miscellaneous Counts Verification Skin Closure/end of Sequence procedure Count Results Correct, surgeon notified Counts Performed By Count Performed By Jos Ledezma, Surgical (Scrub) Face And Fill Packer Count Performed By Radha Medrano RN (RN) Last Modified By: Radha Medrano RN 08/26/20 14:24:36 [facility] IntraOp Counts Final Audit 08/26/20 14:24:36 Senior Net Developer: LOVELYPIOMAYRA Modifier: EANAPIER 1 <*> Procedure Wound Debridement Lower Extremity(Left), Aortogram Abdominal with Runoff(Left), Angioplasty Percutaneous Transluminal(Left) 1 <+> Count Results 1 <+> Count Performed By (Scrub) 1 <+> Count Performed By (RN) 08/26/20 13:49:14 Senior Net Developer: LOVELYPIOMAYRA Modifier: EANAPIER 1 <*> Procedure Wound Debridement Lower Extremity(Left), Aortogram Abdominal with Runoff(Left) 08/26/20 13:48:01 Senior Net Developer: LOVELYPIOMAYRA Modifier: EANAPIER 1 <*> Procedure Wound [...] RN Accompanied by Transfer/Handoff PT TRANSPORTED TO [facility], PT STABLE Last Modified By: Radha Medrano RN 08/26/20 14:24:24 General Comments: [id number] LALA GRAPHIC USER INTERFACE DESIGNER [facility] IntraOp Dressing and Packing Entry [...] 08/26/20 13:40:08 [facility] IntraOp General Case Head Of Academic Technology 1 Case Information OR OR [facility] [...] Implant Log Implant DEVICE CLSR ANGIO-SEAL Identification VIP [id number] Description Implant Quantity 1 Implant Site RIGHT Implant [id number] Identification Lot Number Implant St [facility] Med:Cardiac Surg Identification Sewing Line Baler Name: Implant [id number] Identification Catalog Number Implant Has an Yes [...] lidocaine 1% 10mg/1ml COMBO heparin in NS [id number] 50ml vial - [id number] flush 2000units/1000ml --[id number] Combo Med List Time Administered Route of [...] HOSPITAL IntraOp Patient Positioning Audit 08/26/20 13:49:13 Senior Net Developer: EANAPIER Modifier: EANAPIER 1 <*> Procedure Wound Debridement Lower Extremity(Left), Aortogram Abdominal with Runoff(Left) 08/26/20 13:48:00 Senior Net Developer: EANAPIER Modifier: EANAPIER 1 <*> Procedure Wound [...] HOSPITAL IntraOp Sign Out Audit 08/26/20 14:32:44 Senior Net Developer: AMAN Modifier: AMAN 1 <*> Specimen Labeled [...] HOSPITAL IntraOp Skin Prep Audit 08/26/20 13:49:14 Senior Net Developer: AMAN Modifier: LOVELYPIER 1 <*> Procedure Wound Debridement Lower Extremity(Left), Aortogram Abdominal with Runoff(Left) 08/26/20 13:48:00 Senior Net Developer: AMAN Modifier: AMAN 1 <*> Procedure Wound Debridement Lower Extremity(Left) [...] A, RN Napier, Elizabeth A, RN 08/26/20 14:22:50 08/26/20 14:22:50 08/26/20 14:22:50 [facility] IntraOp Surgical Procedures Audit 08/26/20 14:22:50 Senior Net Developer: AMAN Modifier: REGINANAPIER 1 <*> Procedure Wound Debridement Lower Extremity 1 <+> Stop <+> 2 Stop <+> 3 Stop 08/26/20 13:56:00 Senior Net Developer: LOVELYPIOMAYRA Modifier: REGINANAPIER 1 <*> Procedure Wound Debridement Lower Extremity 1 <*> Additional Procedure Description (LT LOWER EXTREMTIY WOUND DEBRIDEMENT WITH WOUND VAC) 08/26/20 13:48:53 Senior Net Developer: EANAPIER Modifier: EANAPIER <+> 3 Procedure <+> 3 Primary Procedure <+> 3 Modifiers <+> 3 Primary Surgeon <+> 3 Specialty <+> 3 Start <+> 3 Wound Class <+> 3 Anesthesia Type 08/26/20 13:47:52 Senior Net Developer: EANAPIER Modifier: EANAPIER <+> 2 Procedure <+> 2 Primary Procedure <+> 2 Modifiers <+> 2 Primary Surgeon <+> 2 Specialty <+> 2 Start <+> 2 Wound Class <+> 2 Anesthesia Type 08/26/20 13:43:42 Senior Net Developer: EANAPIER Modifier: EANAPIER 1 <*> Procedure Wound [...] HOSPITAL IntraOP Time Out Audit 08/26/20 13:49:14 Senior Net Developer: EANAPIER Modifier: EANAPIER 1 <*> Procedure to be Performed Wound Debridement Lower Extremity(Left), Aortogram Abdominal with Runoff(Left) 08/26/20 13:48:01 Senior Net Developer: EANAPIER Modifier: EANAPIER 1 <*> Procedure to be [...] WATTSDR Correct Billing Electronically signed by Sivan [facility] Conversion Skidder Operator Cerner at 02/04/2023 2:03 PM CDT documented in this encounter Plan of Treatment Not on file documented as of this encounter Visit Diagnoses Not on filedocumented in this encounter Care Teams Wool Hat Sanding Machine Operator Relationship Specialty Start Date End Date Jay Howell MD [address] [place] [phone] PCP - General Emergency Medicine 11/12/23 documented as of this encounter
--- OUTSIDE RECORDS SUMMARY | 2025-10-12 21:53 | XMS_ITS | Encounter Summary ---
Author Organization [employer] ([place], [place], [place], [place], [place]) Address [address] [place] [address] Care Team Providers Care Food Stand Manager Name Role Phone Jay Howell MD Primary Care Provider [phone] Encounter Details Date Type Department Care Team (Late st Contact Info) Description 03/19/2021 Transcribed Document [facility] [place] [address] [place] [address] ProviderJessie MD [address] [place], [place] [phone] Social History Tobacco Use Types Packs/Day Years [...] KENDRA ROJAS, PT - 03/19/2021 17:49 EDT Custodial Goals Mobility/Bed Mobility LTG PT Grid Goal [...] filedocumented in this encounter Care Teams Food Stand Manager Relationship Specialty Start Date End Date Jay Howell MD [address] [place] [phone] PCP - General Emergency Medicine 11/12/23 documented as of this encounter
--- OUTSIDE RECORDS SUMMARY | 2025-10-12 21:53 | XMS_ITS | Encounter Summary ---
Author Organization [employer] ([place], [place], [place], [place], [place]) Address [address] [place] [address] Care Team Providers Care Sheetmetal Trades Worker Name Role Phone Jay Howell MD Primary Care Provider [phone] Encounter Details Date Type Department Care Team (Late st Contact Info) Description 08/26/2020 Transcribed Document [facility] [place] [address] [place] [address] ProviderJessie MD [address] [place] [phone] Social History Tobacco Use Types Packs/Day Years Used Date Smoking Tobacco: Never Assessed Comments Unknown Sex and Gender Information Value Date Recorded Sex Assigned at Not on file Legal Sex Female 7:30 PM CDT Gender Identity Not on file Sexual Orientation Not on file documented as of this encounter Miscellaneous Notes * Cerner Conversion Note - Jessie ProviderMD - 08/26/2020 9:06 AM ADDICTION THERAPIST Patient: SKYLER MONTOYA Age: 79 years Sex: Female : 1940 Associated Diagnoses: None Author: Cheng Jennings, Ribbon Sweatband Operator Cert 79yo female with Left lower [...] 26) 6.0 (AUG 25) HB L 10.0 (NOV ) 12.0 (AUG 25) HCT L 30.5 (NOV ) 36.1 (NOV ) Plt L 140 (NOV ) 178 (NOV ) Na 138 (NOV ) 136 (NOV 09) K L 3.4 (AUG 26) 3.7 (AUG [...] continue to follow, Cheng Jennings, PharmD/MPH Candidate Felicia Perea, KellD Electronically signed by [facility] Conversion Civil Attorney Cerner at 02/04/2023 2:17 PM CDT documented in this encounter Plan of Treatment Not on file documented as of this encounter Visit Diagnoses Not on filedocumented in this encounter Care Teams Sheetmetal Trades Worker Relationship Specialty Start Date End Date Jay Howell MD [address] [place] [phone] PCP - General Emergency Medicine 11/12/23 documented as of this encounter
--- OUTSIDE RECORDS SUMMARY | 2025-10-12 21:53 | XMS_ITS | Encounter Summary ---
Author Organization [employer] ([place], [place], [place], [place], [place]) Address [address] [place] [address] Care Team Providers Care Web Mobile Designer Name Role Phone Jay Howell MD Primary Care Provider [phone] Encounter Details Date Type Department Care Team (Late st Contact Info) Description 09/04/2020 Transcribed Document [facility] [place] [address] [place] [address] ProviderJessie MD [address] [place] [address] [phone] Social History Tobacco Use Types Packs/Day Years Used Date Smoking Tobacco: Never Assessed Comments Unknown Sex and Gender Information Value Date Recorded Sex Assigned at Not on file Legal Sex Female 7:30 PM CDT Gender Identity Not on file Sexual Orientation Not on file documented as of this encounter Miscellaneous Notes * Cerner Conversion Note - Jessie ProviderMD - 09/04/2020 4:13 AM DIVERSIONAL THERAPIST'S ASSISTANT ED Event Note Entered On: 09/04/2020 4:13 EST Performed On: 09/04/2020 4:13 EST by Chinyere Leonard RN ED Event Note ED Event Date/Time : 09/04/2020 2:00 EST ED Description of Event : pt arrived during system downtime; view downtime form Chinyere Leonard RN - 09/04/2020 4:13 EST Electronically signed by Sivan [facility] Conversion Sharepoint Trainer Cerner at 02/04/2023 2:13 PM CDT documented in this encounter Plan of Treatment Not on file documented as of this encounter Visit Diagnoses Not on filedocumented in this encounter Care Teams Web Mobile Designer Relationship Specialty Start Date End Date Jay Howell MD [address] [place] [phone] PCP - General Emergency Medicine 11/12/23 documented as of this encounter
--- OUTSIDE RECORDS SUMMARY | 2025-10-12 21:53 | XMS_ITS | Encounter Summary ---
Author Organization [employer] ([place], [place], [place], [place], [place]) Address [address] [place] [address] Care Team Providers Care Reverse Logistics Analyst Name Role Phone Jay Howell MD Primary Care Provider [phone] Encounter Details Date Type Department Care Team (Late st Contact Info) Description 09/01/2020 Transcribed Document [facility] [place] [address] [place] [address] ProviderJessie MD [address] [place] [phone] Social History Tobacco Use Types Packs/Day Years Used Date Smoking Tobacco: Never Assessed Comments Unknown Sex and Gender Information Value Date Recorded Sex Assigned at Not on file Legal Sex Female 7:30 PM CDT Gender Identity Not on file Sexual Orientation Not on file documented as of this encounter Miscellaneous Notes * Cerner Conversion Note - Jessie ProviderMD - 09/01/2020 1:18 PM ELECTRONIC VIDEO GAMES SERVICER On Going Discharge Planning Entered On: 09/01/2020 13:19 EST Performed On: 09/01/2020 13:18 EST by KAVITA PELLETIER RN-Safety AideRoller Varnisher Progress Note Discharge Arrangements : Patient Post-Acute Information Patient Name: SKYLER MONTOYA Gender: Female : [birth year] Age: 79 Years [place] Referral(s): Service: Organization: Business Address: Phone Number: [address] [place], [address] Discharge Options Discussed with Patient : [...] Attend Multidisciplinary Rounds? : Yes KAVITA PELLETIER RN-Safety Aide - 09/01/2020 13:18 EST Electronically signed by [facility] Conversion Associate Software Development Engineer Cerner at 02/04/2023 2:00 PM CDT documented in this encounter Plan of Treatment Not on file documented as of this encounter Visit Diagnoses Not on filedocumented in this encounter Care Teams Reverse Logistics Analyst Relationship Specialty Start Date End Date Jay Howell MD [address] [place] [phone] PCP - General Emergency Medicine 11/12/23 documented as of this encounter
--- OUTSIDE RECORDS SUMMARY | 2025-10-12 21:53 | XMS_ITS | Encounter Summary ---
Author Organization [employer] ([place], [place], [place], [place], [place]) Address [address] [place] [address] Care Team Providers Care Window Shade Cutter Name Role Phone Jay Howell MD Primary Care Provider [phone] Encounter Details Date Type Department Care Team (Late st Contact Info) Description 08/25/2020 Transcribed Document [facility] [place] [address] [place] [address] ProviderJessie MD [address] [place] [phone] Social History Tobacco Use Types Packs/Day Years Used Date Smoking Tobacco: Never Assessed Comments Unknown Sex and Gender Information Value Date Recorded Sex Assigned at Not on file Legal Sex Female 7:30 PM CDT Gender Identity Not on file Sexual Orientation Not on file documented as of this encounter Miscellaneous Notes * Cerner Conversion Note - Jessie ProviderMD - 08/25/2020 10:42 AM WHITE KID BUFFER Patient: SKYLER MONTOYA Age: 79 years Sex: Female : 1940 Associated Diagnoses: None Author: KAVITHA HIDALGO MD-INF ID CONSULT DICTATED documented in this encounter Plan of Treatment Not on file documented as of this encounter Visit Diagnoses Not on filedocumented in this encounter Care Teams Window Shade Cutter Relationship Specialty Start Date End Date Jay Howell MD [address] [place] [phone] PCP - General Emergency Medicine 11/12/23 documented as of this encounter
--- OUTSIDE RECORDS SUMMARY | 2025-10-12 21:53 | XMS_ITS | Encounter Summary ---
Author Organization [employer] ([place], [place], [place], [place], [place]) Address [address] [place] [address] Care Team Providers Care Hotel Reservation Agent Name Role Phone Jay Howell MD Primary Care Provider [phone] Encounter Details Date Type Department Care Team (Late st Contact Info) Description 09/01/2020 Transcribed Document [facility] [place] [address] [place] [address] ProviderJessie MD [address] [place], [place] [phone] Social History Tobacco Use Types Packs/Day Years Used Date Smoking Tobacco: Never Assessed Comments Unknown Sex and Gender Information Value Date Recorded Sex Assigned at Not on file Legal Sex Female 7:30 PM CDT Gender Identity Not on file Sexual Orientation Not on file documented as of this encounter Miscellaneous Notes * Cerner Conversion Note - Jessie Yuen MD - 09/01/2020 9:57 AM HANDBELL CHOIR DIRECTOR TARA CHEN, [address] [place] [id number] Re: SKYLER MONTOYA Date of Visit: 08/25/2020 [...] is strictly prohibited. Sincerely, KAREN PUTNAM [address] [facility] [address] [place] [address] The following document(s) were included in the letter: September 01, 2020 09:27:18 EST - (09/01/2020) Discharge Note Electronically signed by Sivan [facility] Conversion Organizational Development Specialist Cerner at 02/04/2023 2:03 PM CDT documented in this encounter Plan of Treatment Not on file documented as of this encounter Visit Diagnoses Not on filedocumented in this encounter Care Teams Hotel Reservation Agent Relationship Specialty Start Date End Date Jay Howell MD [address] [place] [phone] PCP - General Emergency Medicine 11/12/23 documented as of this encounter
--- OUTSIDE RECORDS SUMMARY | 2025-10-12 21:53 | XMS_ITS | Encounter Summary ---
Author Organization [employer] ([place], [place], [place], [place], [place]) Address [address] [place] [address] Care Team Providers Care Shearer Operator Name Role Phone Jay Howell MD Primary Care Provider [phone] Encounter Details Date Type Department Care Team (Late st Contact Info) Description 09/04/2020 Transcribed Document [facility] [place] Family Medicine [address] [place] [address] ProviderJessie MD [address] [place] [address] [phone] Social History Tobacco Use Types Packs/Day Years Used Date Smoking Tobacco: Never Assessed Comments Unknown Sex and Gender Information Value Date Recorded Sex Assigned at Not on file Legal Sex Female 7:30 PM CDT Gender Identity Not on file Sexual Orientation Not on file documented as of this encounter Miscellaneous Notes * Cerner Conversion Note - Jessie ProviderMD - 09/04/2020 4:04 AM BENCH ASSEMBLER ED Triage Entered On: 09/04/2020 4:13 EST Performed On: 09/04/2020 1:51 EST by Chinyere Leonard RN ED Triage Across the Room Chief Complaint : see downtime triage form Triage Date/Time : 09/04/2020 1:51 EST Chinyere Leonard RN - 09/04/2020 4:12 EST DCP GENERIC CODE Tracking Acuity : 4 - Non - Urgent Tracking Group : [facility] ED Chinyere Leonard RN - 09/04/2020 4:12 EST Mode of Arrival : Ambulatory Transported to ED by : Private vehicle To Room Via : Ambulate Accompanied By : Spouse Height & Weight : Document ED Allergies : Document ED Reason for Visit : Document Tetanus Immunization : Less than 5 years Composition Teacher Needed : No Chinyere Leonard RN - [...] morphine ; Type: Allergy ; Updated By: CONTRIBUTORAUSTIN WILSON; Reviewed Date: 09/04/2020 4:13 EST nitrofurantoin Estimated Onset Date: Unspecified ; Reactions: blisters, blisters ; Created By: CONTRIBUTOR_SYSTEMAUSTIN; Reaction Status: Active ; Category: Drug ; Substance: nitrofurantoin ; Type: Allergy ; Updated By: CONTRIBUTORAUSTIN WILSON; Reviewed Date: 09/04/2020 4:13 EST Diagnosis Control ED (As Of: 09/04/2020 04:13:26 EST) Problems(Active) Apnea, sleep (SNOMED CT :434273987 ) Name of Problem: Apnea, sleep ; Recorder: JUAN LUIS GIL RN; Confirmation: Confirmed ; Classification: Medical ; Code: [id number] ; Contributor System: [employer] ; Last Updated: 11/12/2014 10:12 EST ; Life Cycle Date: 11/12/2014 ; Life Cycle Status: Active ; Vocabulary: SNOMED CT Arthritis (SNOMED CT :3359909 ) Name of Problem: Arthritis ; Recorder: KENYON CHAMBERS RN; Confirmation: Confirmed ; Classification: Medical ; Code: 8012582 ; Contributor System: [employer] ; Last Updated: 04/10/2016 8:04 EDT ; Life Cycle Date: 08/13/2013 ; Life Cycle Status: Active ; Vocabulary: SNOMED CT Atrial fibrillation with RVR (SNOMED CT :7611606009 ) Name of Problem: Atrial fibrillation with RVR ; Recorder: SANG RICO APRN; Confirmation: Confirmed ; Classification: Medical ; Code: 3175508060 ; Contributor System: [employer] ; Last Updated: 04/10/2016 8:05 EDT ; Life Cycle Date: 04/10/2016 ; Life Cycle Status: Active ; Responsible Provider: SANG RICO APRN; Vocabulary: SNOMED CT Blood clot (SNOMED CT :509414740 ) Name of Problem: Blood clot ; Recorder: KENYON CHAMBERS RN; Confirmation: Confirmed ; Classification: Patient Stated ; Code: 717277774 ; Contributor System: [employer] ; Last Updated: [...] Vocabulary: Patient Care Chest pain (SNOMED CT :31371747 ) Name of Problem: Chest pain ; Recorder: SANG RICO APRN; Confirmation: Complaint of ; Classification: Medical ; Code: 62137766 ; Contributor System: [employer] ; Last Updated: 04/10/2016 8:05 EDT ; Life Cycle Status: Active ; Responsible Provider: SANG RICO APRN; Vocabulary: SNOMED CT Chronic anticoagulation (SNOMED CT :726083469 ) Name of Problem: Chronic anticoagulation ; Recorder: SANG RICO APRN; Confirmation: Confirmed ; Classification: Medical ; Code: 608638996 ; Contributor System: [employer] ; Last Updated: 04/10/2016 8:05 EDT ; Life Cycle Date: 04/10/2016 ; Life Cycle Status: Active ; Responsible Provider: SANG RICO APRN; Vocabulary: SNOMED CT Clotting disorder (SNOMED CT :787068998 ) Name of Problem: Clotting disorder ; Recorder: KENYON CHAMBERS RN; Confirmation: Confirmed ; Classification: Patient Stated ; Code: 182918871 ; Contributor System: [employer] ; Last Updated: 03/28/2014 19:29 EDT ; Life Cycle Date: 08/13/2013 ; Life Cycle Status: Active ; Vocabulary: SNOMED CT COPD (SNOMED CT :41886942 ) Name of Problem: COPD ; Recorder: KENYON CHAMBERS RN; Confirmation: Confirmed ; Classification: Medical ; Code: 73056514 ; Contributor System: [employer] ; Last Updated: 04/10/2016 8:03 EDT ; Life Cycle Date: 08/13/2013 ; Life Cycle Status: Active ; Vocabulary: SNOMED CT Coronary artery disease (SNOMED CT :3784909048 ) Name of Problem: Coronary artery disease ; Recorder: KEYNON CHAMBERS RN; Confirmation: Confirmed ; Classification: Medical ; Code: 4638292805 ; Contributor System: [employer] ; Last Updated: 04/10/2016 8:03 EDT ; Life Cycle Date: 08/13/2013 ; Life Cycle Status: Active ; Vocabulary: SNOMED CT Diabetes mellitus (SNOMED CT :533618018 ) Name of Problem: Diabetes mellitus ; Recorder: KENYON CHAMBERS RN; Confirmation: Confirmed ; Classification: Medical ; Code: 606245811 ; Contributor System: PowerChart ; Last Updated: 04/10/2016 8:04 EDT ; Life Cycle Date: 08/13/2013 ; Life Cycle Status: Active ; Vocabulary: SNOMED CT Emphysema (SNOMED CT :068134942 ) Name of Problem: Emphysema ; Recorder: JUAN LUIS GIL RN; Confirmation: Confirmed ; Classification: Medical ; Code: 361999103 ; Contributor System: [employer] ; Last Updated: 11/12/2014 10:11 EST ; Life Cycle Date: 11/12/2014 ; Life Cycle Status: Active ; Vocabulary: SNOMED CT GERD - Gastro-esophageal reflux disease (SNOMED CT :8956013346 ) Name of Problem: GERD - Gastro-esophageal reflux disease ; Recorder: KENYON CHAMBERS RN; Confirmation: Confirmed ; Classification: Medical ; Code: 8444293012 ; Contributor System: PowerChart ; Last Updated: [...] Patient Care High blood pressure (SNOMED CT :49373438 ) Name of Problem: High blood pressure ; Recorder: KENYON CHAMBERS RN; Confirmation: Confirmed ; Classification: Medical ; Code: 97413533 ; Contributor System: [employer] ; Last Updated: 04/10/2016 8:03 EDT ; Life Cycle Date: 08/13/2013 ; Life Cycle Status: Active ; Vocabulary: SNOMED CT History of obstructive sleep apnea (IMO :65950846 ) Name of Problem: History of obstructive sleep apnea ; Recorder: SYSTEM, SYSTEM; Confirmation: Confirmed ; Classification: Medical ; Code: 83770575 ; Last Updated: 08/25/2020 18:21 EST ; Life Cycle Date: 08/25/2020 ; Life Cycle Status: Active ; Vocabulary: IMO Hx of pulmonary embolus (SNOMED CT :272858235 ) Name of Problem: Hx of pulmonary embolus ; Recorder: SANG RICO APRN; Confirmation: Confirmed ; Classification: Medical ; Code: 170844398 ; Contributor System: [employer] ; Last Updated: 04/10/2016 8:05 EDT ; Life Cycle Date: 04/10/2016 ; Life Cycle Status: Active ; Responsible Provider: SANG RICO APRN; Vocabulary: SNOMED CT Hyperlipidemia (SNOMED CT :71234614 ) Name of Problem: Hyperlipidemia ; Recorder: KENYON CHAMBERS RN; Confirmation: Confirmed ; Classification: Medical ; Code: 04479582 ; Contributor System: [employer] ; Last Updated: 04/10/2016 8:03 EDT ; Life Cycle Date: 08/13/2013 ; Life Cycle Status: Active ; Vocabulary: SNOMED CT Multiple renal cysts (SNOMED CT :101575816 ) Name of Problem: Multiple renal cysts ; Recorder: KENYON CHAMBERS RN; Confirmation: Confirmed ; Classification: Medical ; Code: 238658617 ; Contributor System: [employer] ; Last Updated: 04/10/2016 8:04 EDT ; Life Cycle Date: 08/13/2013 ; Life Cycle Status: Active ; Vocabulary: SNOMED CT Stented coronary artery (SNOMED CT :0864100504 ) Name of Problem: Stented coronary artery ; Recorder: KENYON CHAMBERS RN; Confirmation: Confirmed ; Classification: Medical ; Code: 4408193540 ; Contributor System: [employer] ; Last Updated: 04/10/2016 8:03 EDT ; Life Cycle Date: 08/13/2013 ; Life Cycle Status: Active ; Vocabulary: SNOMED CT Diagnoses(Active) Wound drain evaluation Date: 09/04/2020 ; Diagnosis Type: Reason For Visit ; Confirmation: Complaint of ; Clinical Dx: Wound drain evaluation ; Classification: Medical ; Clinical Service: Non-Specified ; Code: PNED ; Probability: 0 ; Diagnosis Code: [id number] ED Height and Weight Height Source : Stated Height Entry Format : [place] Height, Feet : 5 ft(Converted to: 152 cm, 60 Inch) Height, Inches : 4 Inch(Converted to: 0 ft 4 Inch, 10.16 cm) Clinical Height : 162.56 cm Weight Source, ED : Critical estimated dosing weight Weight Entry Format : [place] Weight, Pounds : 152 lb Clinical Dosing Weight : 69.09 kg Body Surface Area (BSA) : 1.74 m2 Body Mass Index : 26.1 kg/m2 (HI) [place] Body Weight (IBW) : 54.3 kg Chinyere Leonard RN - 09/04/2020 4:12 EST Electronically signed by Gayle Finnegan Conversion Special Education Classroom Aide Cerner at 02/04/2023 1:57 PM CDT documented in this encounter Plan of Treatment Not on file documented as of this encounter Visit Diagnoses Not on filedocumented in this encounter Care Teams Shearer Operator Relationship Specialty Start Date End Date Jay Howell MD [address] [place], [place] [phone] PCP - General Emergency Medicine 11/12/23 documented as of this encounter
--- OUTSIDE RECORDS SUMMARY | 2025-10-12 21:53 | XMS_ITS | Encounter Summary ---
Author Organization [employer] ([place], [place], [place], [place], [place]) Address [address] [place] [address] Care Team Providers Care Industrial Security Analyst Name Role Phone Jay Howell MD Primary Care Provider [phone] Encounter Details Date Type Department Care Team (Late st Contact Info) Description 08/31/2020 Transcribed Document [facility] Family Medicine [address] [place] [address] ProviderJessie MD [address] [place] [address] Social History Tobacco Use Types Packs/Day Years Used Date Smoking Tobacco: Never Assessed Comments Unknown Sex and Gender Information Value Date Recorded Sex Assigned at Not on file Legal Sex Female 7:30 PM CDT Gender Identity Not on file Sexual Orientation Not on file documented as of this encounter Miscellaneous Notes * Cerner Conversion Note - Jessie Yuen MD - 08/31/2020 8:53 AM FLAKE MILLER HELPER Patient: SKYLER MONTOYA Age: 79 years [...] for this consult, Miladys Lopez, KellD PGY-1 Production Cell Leader Pager #: [phone] Extension #: [phone] Electronically signed by [facility], [facility] Conversion Condenser Tube Tender Cerner at 02/04/2023 2:02 PM CDT documented in this encounter Plan of Treatment Not on file documented as of this encounter Visit Diagnoses Not on filedocumented in this encounter Care Teams Industrial Security Analyst Relationship Specialty Start Date End Date Jay Howell MD [address] [place] [phone] PCP - General Emergency Medicine 11/12/23 documented as of this encounter
--- OUTSIDE RECORDS SUMMARY | 2025-10-12 21:53 | XMS_ITS | Encounter Summary ---
Author Organization [employer] ([place], [place], [place], [place], [place]) Address [address] [place] [address] Care Team Providers Care New Home Sales Consultant Name Role Phone Jay Howell MD Primary Care Provider [phone] Encounter Details Date Type Department Care Team (Late st Contact Info) Description 09/08/2020 Transcribed Document [facility] Family Medicine [address] [place] [address] ProviderJessie MD [address] [place] [address] [phone] Social History Tobacco Use Types Packs/Day Years Used Date Smoking Tobacco: Never Assessed Comments Unknown Sex and Gender Information Value Date Recorded Sex Assigned at Not on file Legal Sex Female 7:30 PM CDT Gender Identity Not on file Sexual Orientation Not on file documented as of this encounter Miscellaneous Notes * Cerner Conversion Note - Jessie Yuen MD - 09/08/2020 5:17 PM SKIMMER Patient: SKYLER MONTOYA Age: 79 Years Sex: Female : 1940 Reason for Consultation LEFT LE wound History of Present Illness Ms. Montoya is an 79 year-old female who [facility] [place] for f/u after recent hospitalization. She has [...] lower extremity run-off - LEFT PT angioplasty (2.5-9n847ak [employer]) - LEFT peroneal angioplasty (2.5-6w109ox [employer]) - LEFT leg debridement Other: - [...] No labs to review Electronically signed by [facility] Conversion Licensed Mass Real Estate Appraiser Cerner at 02/04/2023 1:55 PM CDT documented in this encounter Plan of Treatment Not on file documented as of this encounter Visit Diagnoses Not on filedocumented in this encounter Care Teams New Home Sales Consultant Relationship Specialty Start Date End Date Jay Howell MD [address] [place] [phone] PCP - General Emergency Medicine 11/12/23 documented as of this encounter
--- OUTSIDE RECORDS SUMMARY | 2025-10-12 21:53 | XMS_ITS | Encounter Summary ---
Author Organization [employer] ([place], [place], [place], [place], [place]) Address [address] [place] [address] Care Team Providers Care Mold Yard Crane Operator Name Role Phone Jay Howell MD Primary Care Provider [phone] Encounter Details Date Type Department Care Team (Late st Contact Info) Description 03/18/2021 Transcribed Document [facility] Family Medicine [address] [place] [address] ProviderJessie MD [address] [place], [place] [phone] Social History Tobacco Use Types Packs/Day Years [...] 03/18/2021 15:01 EDT by Krystina Giang V, Jigger Crown Pouncing Machine Operator Uat Tester Care Management Progress Note Discharge Arrangements : [...] Multidisciplinary Rounds? : Yes Krystina Giang V Jigger Crown Pouncing Machine Operator [facility] - 03/18/2021 15:01 EDT Narrative Progress Note [...] to follow dc plan Krystina Giang V Jigger Crown Pouncing Machine Operator [facility] - 03/18/2021 15:01 EDT Electronically signed by Sivan [facility] Conversion Supervisory Investigative Specialist Cerner at 02/04/2023 1:55 PM CDT documented in this encounter Plan of Treatment Not on file documented as of this encounter Visit Diagnoses Not on filedocumented in this encounter Care Teams Mold Yard Crane Operator Relationship Specialty Start Date End Date Jay Howell MD [address] [place] [phone] PCP - General Emergency Medicine 11/12/23 documented as of this encounter
--- OUTSIDE RECORDS SUMMARY | 2025-10-12 21:53 | XMS_ITS | Encounter Summary ---
Author Organization [employer] ([place], [place], [place], [place], [place]) Address [address] [place] [address] Care Team Providers Care Edge Cutting Machine Operator Name Role Phone Jay Howell MD Primary Care Provider [phone] Encounter Details Date Type Department Care Team (Late st Contact Info) Description 08/25/2020 Transcribed Document [facility] Family Medicine [address] [place] [address] ProviderJessie MD [address] [place] [address] [phone] Social History Tobacco Use Types Packs/Day Years Used Date Smoking Tobacco: Never Assessed Comments Unknown Sex and Gender Information Value Date Recorded Sex Assigned at Not on file Legal Sex Female 7:30 PM CDT Gender Identity Not on file Sexual Orientation Not on file documented as of this encounter Miscellaneous Notes * Cerner Conversion Note - Jessie ProviderMD - 08/25/2020 4:33 AM TUBE ROOM CASHIER Broset Violence Assessment Entered On: 08/25/2020 5:10 EST Performed On: 08/25/2020 5:10 EST by Yajaira Magallon Rn Broset Violence Assessment Broset Violence Checklist of Symptoms : None Broset Violence Symptoms Subtotal : 0 Broset Violence Symptoms Indicator : Low risk (0) Yajaira Magallon Rn - 08/25/2020 5:10 EST Electronically signed by Sivan [facility] Conversion Social Media Editor Cerner at 02/04/2023 2:10 PM CDT documented in this encounter Plan of Treatment Not on file documented as of this encounter Visit Diagnoses Not on filedocumented in this encounter Care Teams Edge Cutting Machine Operator Relationship Specialty Start Date End Date Jay Howell MD [address] [place] [phone] PCP - General Emergency Medicine 11/12/23 documented as of this encounter
--- OUTSIDE RECORDS SUMMARY | 2025-10-12 21:53 | XMS_ITS | Encounter Summary ---
Author Organization [employer] ([place], [place], [place], [place], [place]) Address [address] [place] [address] Care Team Providers Care Business Improvement Manager Name Role Phone Jay Howell MD Primary Care Provider [phone] Encounter Details Date Type Department Care Team (Late st Contact Info) Description 08/26/2020 Transcribed Document [facility] [place] [address] [place] [address] ProviderJessie MD [address] [place] [address] [phone] Social History Tobacco Use Types Packs/Day Years Used Date Smoking Tobacco: Never Assessed Comments Unknown Sex and Gender Information Value Date Recorded Sex Assigned at Not on file Legal Sex Female 7:30 PM CDT Gender Identity Not on file Sexual Orientation Not on file documented as of this encounter Miscellaneous Notes * Cerner Conversion Note - Jessie ProviderMD - 08/26/2020 2:49 PM LINING MAKER HAND Patient: SKYLER MONTOYA Age: 79 years [...] filedocumented in this encounter Care Teams Business Improvement Manager Relationship Specialty Start Date End Date Jay Howell MD [address] [place] [phone] PCP - General Emergency Medicine 11/12/23 documented as of this encounter
--- OUTSIDE RECORDS SUMMARY | 2025-10-12 21:53 | XMS_ITS | Encounter Summary ---
Author Organization [employer] ([place], [place], [place], [place], [place]) Address [address] [place] [address] Care Team Providers Care Claim Professional Name Role Phone Jay Howell MD Primary Care Provider [phone] Encounter Details Date Type Department Care Team (Late st Contact Info) Description 08/26/2020 Transcribed Document [facility] Family Medicine [address] [place] [address] ProviderJessie MD [address] [place] [address] [phone] Social History Tobacco Use Types Packs/Day Years Used Date Smoking Tobacco: Never Assessed Comments Unknown Sex and Gender Information Value Date Recorded Sex Assigned at Not on file Legal Sex Female 7:30 PM CDT Gender Identity Not on file Sexual Orientation Not on file documented as of this encounter Miscellaneous Notes * Cerner Conversion Note - Historical ProviderMD - 08/26/2020 2:41 PM DIRECTOR APPAREL Event Note Entered On: 08/26/2020 14:42 EST [...] leg. Aware of bedrest restrictions. Accucheck 105. Daivd Vazquez RN 1615: C/o right lower abdominal [...] - 08/26/2020 18:03 EST Electronically signed by [facility], [facility] Conversion Service Advisor Cerner at 02/04/2023 2:15 PM CDT documented in this encounter Plan of Treatment Not on file documented as of this encounter Visit Diagnoses Not on filedocumented in this encounter Care Teams Claim Professional Relationship Specialty Start Date End Date Jay Howell MD [address] [place] [phone] PCP - General Emergency Medicine 11/12/23 documented as of this encounter
--- OUTSIDE RECORDS SUMMARY | 2025-10-12 21:53 | XMS_ITS | Encounter Summary ---
Author Organization [employer] ([place], [place], [place], [place], [place]) Address [address] [place] [address] Care Team Providers Care Logistics Support Name Role Phone Jay Howell MD Primary Care Provider [phone] Encounter Details Date Type Department Care Team (Late st Contact Info) Description 08/26/2020 Transcribed Document [facility] [place] [address] [place] [address] ProviderJessie MD [address] [place] [address] [phone] Social History Tobacco Use Types Packs/Day Years Used Date Smoking Tobacco: Never Assessed Comments Unknown Sex and Gender Information Value Date Recorded Sex Assigned at Not on file Legal Sex Female 7:30 PM CDT Gender Identity Not on file Sexual Orientation Not on file documented as of this encounter Miscellaneous Notes * Cerner Conversion Note - Historical ProviderMD - 08/26/2020 11:38 AM BOTANICAL TECHNICAL OFFICER Event Note Entered On: 08/26/2020 11:38 EST [...] Date End Date Jay Howell MD [address] [place] [phone] PCP - General Emergency Medicine 11/12/23 documented as of this encounter
--- OUTSIDE RECORDS SUMMARY | 2025-10-12 21:53 | XMS_ITS | Encounter Summary ---
Author Organization [employer] ([place], [place], [place], [place], [place]) Address [address] [place] [address] Care Team Providers Care Cutting Inspector Name Role Phone Jay Howell MD Primary Care Provider [phone] Encounter Details Date Type Department Care Team (Late st Contact Info) Description 08/26/2020 Transcribed Document [facility] Family Medicine [address] [place] [address] ProviderJessie MD [address] [place] [address] [phone] Social History Tobacco Use Types Packs/Day Years Used Date Smoking Tobacco: Never Assessed Comments Unknown Sex and Gender Information Value Date Recorded Sex Assigned at Not on file Legal Sex Female 7:30 PM CDT Gender Identity Not on file Sexual Orientation Not on file documented as of this encounter Miscellaneous Notes * Cerner Conversion Note - Jessie ProviderMD - 08/26/2020 6:06 PM INSOLE BEVELER Spiritual Care Short Form Entered On: 08/26/2020 18:06 EST Performed On: 08/26/2020 18:06 EST by JEREMIAH HULL General Information, Spiritual Care Spiritual Care Referred by : Nurse Reason for Visit : Referral/Consult Muslim Preference : Mandaeism JEREMIAH HULL - 08/26/2020 18:06 EST documented in this encounter Plan of Treatment Not on file documented as of this encounter Visit Diagnoses Not on filedocumented in this encounter Care Teams Cutting Inspector Relationship Specialty Start Date End Date Jay Howell MD [address] [place] [phone] PCP - General Emergency Medicine 11/12/23 documented as of this encounter
--- OUTSIDE RECORDS SUMMARY | 2025-10-12 21:53 | XMS_ITS | Encounter Summary ---
Author Organization [employer] ([place], [place], [place], [place], [place]) Address [address] [place] [address] Care Team Providers Care Heavy Truck Technician Name Role Phone Jay Howell MD Primary Care Provider [phone] Encounter Details Date Type Department Care Team (Late st Contact Info) Description 08/26/2020 Transcribed Document [facility] Family Medicine [address] [place] [address] ProviderJessie MD [address] [place], [place] [phone] Social History Tobacco Use Types Packs/Day Years Used Date Smoking Tobacco: Never Assessed Comments Unknown Sex and Gender Information Value Date Recorded Sex Assigned at Not on file Legal Sex Female 7:30 PM CDT Gender Identity Not on file Sexual Orientation Not on file documented as of this encounter Miscellaneous Notes * Cerner Conversion Note - Historical ProviderMD - 08/26/2020 12:15 PM CURRENCY COUNTER Peripheral Nerve Block Entered On: 08/26/2020 12:27 [...] 08/26/2020 12:25 EST Electronically signed by [facility], [facility] Conversion Machine Wedger Cerner at 02/04/2023 2:08 PM CDT documented in this encounter Plan of Treatment Not on file documented as of this encounter Visit Diagnoses Not on filedocumented in this encounter Care Teams Heavy Truck Technician Relationship Specialty Start Date End Date Jay Howell MD [address] [place] [phone] PCP - General Emergency Medicine 11/12/23 documented as of this encounter
--- OUTSIDE RECORDS SUMMARY | 2025-10-12 21:53 | XMS_ITS | Encounter Summary ---
Author Organization [employer] ([place], [place], [place], [place], [place]) Address [address] [place] [address] Care Team Providers Care Financial Assistance Advisor Name Role Phone Jay Howell MD Primary Care Provider [phone] Encounter Details Date Type Department Care Team (Late st Contact Info) Description 03/18/2021 Transcribed Document [facility] Family Medicine [address] [place] [address] ProviderJessie MD [address] [place], [place] [id number] Social History Tobacco Use Types Packs/Day Years [...] Insurance 1 Health Plan: MEDICARE Policy Number: [id number] Authorization Number: Insurance 2 Health Plan: AARP N Policy Number: [id number] Authorization Number: Insurance Primary Name : MEDICARE Policy Number: [id number] Authorized Service Begin Date-Primary : 03/16/2021 EDT Historical Authorization Comments-Primary : No Authorization Comments Found MARILYNN RAMÍREZ, RN-Utilization Review - 03/18/2021 8:56 EDT Electronically signed by Sivan [facility] Conversion Publication Specialist Cerner at 02/04/2023 2:20 PM CDT documented in this encounter Plan of Treatment Not on file documented as of this encounter Visit Diagnoses Not on filedocumented in this encounter Care Teams Financial Assistance Advisor Relationship Specialty Start Date End Date Jay Howell MD [address] [place] [phone] PCP - General Emergency Medicine 11/12/23 documented as of this encounter
--- OUTSIDE RECORDS SUMMARY | 2025-10-12 21:53 | XMS_ITS | Encounter Summary ---
Author Organization [employer] ([place], [place], [place], [place], [place]) Address [address] [place] [address] Care Team Providers Care Filter Assembler Name Role Phone Jay Howell MD Primary Care Provider [phone] Encounter Details Date Type Department Care Team (Late st Contact Info) Description 09/01/2020 Transcribed Document [facility] [place] Family Medicine [address] [place] [address] ProviderJessie MD [address] [place] [address] Social History Tobacco Use Types Packs/Day [...] Jessie Yuen MD - 09/01/2020 2:22 PM DRAWBENCH OPERATOR [facility] [place] [address] SKYLER MONTOYA :1940 Visit Time:08/25/2020 Your Visit Summary Your Care Team Admitting Physician - BETH DAAVLOS MD-INT Attending Physician - SARAH CONTEH MD [...] wound vac Community Services: [facility]-- ///after hours & weekends-- Medical Equipment for Home Use: ROTECH--wound vac STOP the following medications: STOP Aspirin STOP Clindamycin STOP Bactroban Ointment STOP Hydralazine 10 mg tablets ---- Dose increased and NEW RX Provided STOP Warfarin 2 mg tablets --- Dose changed to 3 mg daily x next 5 days. NEW RX Provided. STOP Reevesville 7.5/325 mg tablets --- NEW RX Provided for 5/325 mg tablets --- Take one or the other - Do not take both. Discharge Activity: Discharge Activity: No heavy lifting over 10 lbs, Avoid Strenuous Activity Until: for 1 week Follow-Up Appointments Follow Up with KAELA VERDE When 09/29/2020 12:30 PM EST Comments F/u w/ FERNIE Where: [facility] [address] [place] [phone]- Business (1) Follow Up with KAELA VERDE When 09/08/2020 12:45 PM EST Comments F/u [facility] with Irina Troy PA-C Where: [facility] [address] [place] [address]- Business (1) Follow Up with TARA CHEN When 09/05/2020 12:20 PM EST Comments needs INR check///We have held your Aspirin per vascular surgeon, Dr. Verde///Appointment has been made Where: [address] [place] [address]- Business (1) Follow Up with KAVITHA HIDALGO When 09/03/2020 02:30 PM EST Comments Appointment has been made Where: [address] [place] [address]- Business (1) Medications What How Much When Instructions Next Dose amoxicillin-clavulanate (amoxicillin-clavulanate 875 mg-125 mg oral tablet) 1 Tablet(s) Oral Every 12 hours Duration: 3 Day(s) Pickup at [facility] Tuesday09/01/2020 9:00 PM clopidogrel (Plavix 75 mg oral tablet) 1 Tablet(s) Oral Every Day Pickup at [facility] Tuesday09/02/2020 9:00 AM doxycycline (Vibramycin 100 mg oral capsule) 1 Capsule(s) Oral Two Times A Day Duration: 3 Day(s) Pickup at [facility] Tuesday09/01/2020 9:00 PM enoxaparin (Lovenox 80 mg/ 0.8 mL injectable solution) 70 Milligram(s) SubCutaneous Every 12 hours Duration: 5 Day(s) Pickup at [facility] Tuesday09/01/2020 9:00 PM lactobacillus acidophilus (lactobacillus acidophilus oral tablet) 2 Tablet(s) Oral Every Day Duration: 28 Day(s) Pickup at [facility] Tuesday09/02/2020 9:00 AM terbinafine (terbinafine 250 mg oral tablet) 1 Tablet(s) Oral Every Day Duration: 6 weeks Pickup at [facility] Tuesday09/02/2020 9:00 AM ALPRAZolam (Xanax 0.5 mg oral tablet) 1 Tablet(s) Oral At Bedtime as needed for for anxiety/sleep acetaminophen-hydrocodone (Reevesville 5 mg-325 mg oral tablet) 1 Tablet(s) Oral Every 4 Hours as needed for for pain NEW DOSE. New RX Provided. amLODIPine (Norvasc 10 mg oral tablet) 1 Tablet(s) Oral Every Day Pickup at [facility] Tuesday09/02/2020 9:00 AM atorvastatin (atorvastatin 80 mg oral tablet) 1 Tablet(s) Oral At Bedtime Pickup at [facility] Tuesday09/01/2020 9:00 PM carvedilol (carvedilol 6.25 mg oral tablet) 1 Tablet(s) Oral Three Times A Day Tuesday09/01/2020 4:00 PM dorzolamide ophthalmic (dorzolamide 2% ophthalmic solution) 1 Drop(s) Eye Right Two Times A Day Tuesday09/01/2020 9:00 PM hydrALAZINE (hydrALAZINE 100 mg oral tablet) 1 Tablet(s) Oral Two Times A Day NEW DOSE Pickup at [facility] Tuesday09/01/2020 9:00 PM warfarin (Coumadin 3 mg oral tablet) 1 Tablet(s) Oral Every Day Duration: 5 Day(s) NEW DOSE x the next 5 days. INR will be checked in 2 days. Pickup at [facility] Tuesday09/02/2020 9:00 AM losartan (losartan 100 mg [...] A Day Tuesday09/01/2020 9:00 PM Pharmacy Information [facility]: [address] [facility] [address] [place], [place] [id number] [phone] Take your medications faithfully. Do NOT skip [...] bag. ??? Soap and water, or hand warehouse representative. ??? Wound cleanser or salt-water solution (saline). [...] and water are not available, use hand warehouse representative. 3. Set up a clean station for [...] and water are not available, use hand warehouse representative. Clean your wound ??? Wear gloves, protective [...] and water are not available, use hand warehouse representative. Apply new dressing ??? Wear gloves, protective [...] and water are not available, use hand warehouse representative. 8. Turn the pump back on. The sponge dressing should collapse. Do not change the settings on the machine without talking to a health care provider. 9. Replace the container in the pump that collects fluid if it is full. Replace the container per the scouring machine operator's instructions or at least once a week, [...] clamps are open. ??? Do not use taga-eor-ngcrhky medicated or antiseptic creams, sprays, liquids, or [...] 12/25/2012 Document Revised: 01/25/2020 Document Reviewed: 12/21/2019 K[employer]Me Patient Education ?? 2020 [employer] Inc. Cellulitis, Adult Cellulitis is a skin [...] these instructions at home: Medicines ??? Take gljn-dal-dahgasg and prescription medicines only as told by [...] 03/21/2009 Document Revised: 02/22/2019 Document Reviewed: 02/22/2019 [employer]Me Patient Education ?? 2020 [employer]. What You Need to Know About [...] other medicines or supplements? Many prescription and fvpt-ibk-hjkmzsp medicines can interfere with warfarin. Talk with your health care provider or your pharmacist before starting or stopping any new medicines. This includes naou-fbg-pkxdzid vitamins, dietary supplements, herbal medicines, and pain medicines. Your warfarin dosage may need to be adjusted. ??? Some common kmcr-okr-gmvigaa medicines that may increase the risk of [...] that you work with a diet and clinical specialist medical device (dietitian). ??? Vitamin K decreases the effect [...] cooked. ??? Collards, raw or cooked. ??? Panamanian chard, raw or cooked. ??? Mustard greens, raw or cooked. ??? Turnip greens, raw or cooked. ??? Parsley, raw. ??? Broccoli, cooked. ??? Noodles, eggs, and spinach, enriched. ??? [place] sprouts, raw or cooked. ??? Beet greens, [...] diet. ??? You start or stop any cung-qvn-rskbxsw medicine, prescription medicine, or dietary supplement. ??? [...] 10/03/2006 Document Revised: 05/16/2018 Document Reviewed: 12/29/2016 [employer]Me Patient Education ?? 2020 [employer]. Hematoma A hematoma is a collection of [...] health care provider. General instructions ??? Take ojjr-hdj-oerymyd and prescription medicines only as told by [...] Assistance with quitting is available by contacting 6-748-LBLRNOW. This is a free resource providing counseling, support, and referral. Or you may contact your personal physician. Orlebar Brown Suicide Prevention Lifeline: The National Suicide Prevention [...] range between ( 0.0 and 7.0 ) Barnwell #: 0.64 K/uL -- Normal range between ( 0.16 and 1.00 ) Eos #: 0.11 x10(3)/uL -- Normal range between ( 0.00 and 0.80 ) Barnwell %: 10.7 % -- Normal range between [...] was given the opportunity to ask questions. Patient/Human Resources Director Name: Patient/Human Resources Director Signature: Relationship to Patient: Clinician/Hospital Human Resources Director Signature: Date: Electronically signed by Sivan, [facility] Conversion Human Resources Benefits Assistant Cerner at 02/04/2023 2:00 PM CDT documented in this encounter Plan of Treatment Not on file documented as of this encounter Visit Diagnoses Not on filedocumented in this encounter Care Teams Filter Assembler Relationship Specialty Start Date End Date Jay Howell MD [address] [place] [phone] PCP - General Emergency Medicine 11/12/23 documented as of this encounter
--- OUTSIDE RECORDS SUMMARY | 2025-10-12 21:53 | XMS_ITS | Encounter Summary ---
Author Organization [employer] ([place], [place], [place], [place], [place]) Address [address] [place] [address] Care Team Providers Care Studio Engineer Name Role Phone Jay Howell MD Primary Care Provider [phone] Encounter Details Date Type Department Care Team (Late st Contact Info) Description 09/29/2020 Transcribed Document [facility] [place] [address] [place] [address] ProviderJessie MD [address] [place] [address] Social History Tobacco Use Types Packs/Day Years Used Date Smoking Tobacco: Never Assessed Comments Unknown Sex and Gender Information Value Date Recorded Sex Assigned at Not on file Legal Sex Female 7:30 PM CDT Gender Identity Not on file Sexual Orientation Not on file documented as of this encounter Miscellaneous Notes * Cerner Conversion Note - Jessie Yuen MD - 09/29/2020 5:14 PM CLINICAL PRODUCT MANAGER Patient: SKYLER MONTOYA Age: 79 Years [...] present starting at the level of the OPERATIONS INTERN. Non significant, non-flow restricting plaque noted at common femoral artery. 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 There is a significant (50-75%) stenosis of the distal OPERATIONS INTERN. Non significant, non-flow restricting plaque noted at DPA. OPERATIONS INTERN & DPA non compressible for FERNIE. TBI: Non compressible. LEFT: Abnormal arterial runoff disease present starting at the level of the OPERATIONS INTERN. Non significant, non-flow restricting plaque noted at common femoral artery. There is a severe (>75%) stenosis of the distal OPERATIONS INTERN. OPERATIONS INTERN & DPA non compressible for FERNIE. TBI: Non compressible. documented in this encounter Plan of Treatment Not on file documented as of this encounter Visit Diagnoses Not on filedocumented in this encounter Care Teams Studio Engineer Relationship Specialty Start Date End Date Jay Howell MD [address] [place] [phone] PCP - General Emergency Medicine 11/12/23 documented as of this encounter
--- OUTSIDE RECORDS SUMMARY | 2025-10-12 21:53 | XMS_ITS | Encounter Summary ---
Author Organization [employer] ([place], [place], [place], [place], [place]) Address [address] [place] [address] Care Team Providers Care Test Examiner Name Role Phone Jay Howell MD Primary Care Provider [phone] Encounter Details Date Type Department Care Team (Late st Contact Info) Description 09/01/2020 Transcribed Document [facility] Family Medicine [address] [place] [address] ProviderJessie MD [address] [place] [address] Social History Tobacco Use Types Packs/Day [...] Jessie Yuen MD - 09/01/2020 9:47 AM PARQUETRY LAYER [address] , [place] [address] Patient Copy Patient Information: Name: SKYLER MONTOYA Rajat Current Date: 09/01/2020 09:47:45 : 1940 Patient Address: [address] [place] [phone] Patient Attending Physician: SARAH CONTEH MD Primary Care Provider: TARA CHEN (REF), -MED Primary Care Provider Discharge Diagnosis: Cellulitis of leg; Hematoma of left lower leg Weight on Admission: 152 lb, 0 oz Comment: Follow-up Instructions: With: Address: When: KAVITHA HIDALGO [address] [facility], [address] [place], [place] [phone] Business (1) In 2 days 09/03/2020 Comments: needs apt scheduled prior to DC With: Address: When: TARA CHEN [address] [place] [address] Business (1) Within 2 days Comments: needs INR check We have held your Aspirin per vascular surgeon, Dr. Verde. With: Address: When: KAELA ORTAKALI [facility], [address], [address] [place] [address] Business (1) 12:30 PM Comments: F/u w/ FERNIE With: Address: When: KAELA ORTAKALI [facility], [address], [address] [place] [address] Business (1) 12:45 PM Comments: F/u WC with Irina Troy PA-C Discharge Instructions: Immunizations Documented During Stay: No Immunizations Found Heart Failure Discharge Instructions (if any): Stroke Related Discharge Instructions (if any): Warfarin Related Discharge Instructions (if any): Final Medication List: [facility], [facility] [address] [facility] [address] [place], [place] [id number], [phone] amLODIPine (Norvasc 10 mg oral tablet) 1 [...] At Bedtime as needed for anxiety/sleep. acetaminophen-hydrocodone ([place] 7.5 mg-325 mg oral tablet) 1 Tablet(s) [...] these instructions at home: Medicines ??? Take khes-kyw-zoitftf and prescription medicines only as told by [...] 03/21/2009 Document Revised: 02/22/2019 Document Reviewed: 02/22/2019 [employer] Patient Education ? 2019 [employer]. What You Need to Know About Warfarin [...] other medicines or supplements? Many prescription and pbqc-qti-kzsygrl medicines can interfere with warfarin. Talk with your health care provider or your pharmacist before starting or stopping any new medicines. This includes mhtt-zbk-vktcqms vitamins, dietary supplements, herbal medicines, and pain medicines. Your warfarin dosage may need to be adjusted. ??? Some common wmak-hci-mezichp medicines that may increase the risk of [...] that you work with a diet and therapeutic recreation specialist (dietitian). ??? Vitamin K decreases the [...] cooked. ??? Collards, raw or cooked. ??? Slovak chard, raw or cooked. ??? Mustard greens, raw or cooked. ??? Turnip greens, raw or cooked. ??? Parsley, raw. ??? Broccoli, cooked. ??? Noodles, eggs, and spinach, enriched. ??? [place] sprouts, raw or cooked. ??? Beet greens, [...] diet. ??? You start or stop any wuxm-sgz-bdmgldc medicine, prescription medicine, or dietary supplement. ??? [...] Reviewed: 12/29/2016 Elsevier Patient Education ? 2020 [employer]. Hematoma A hematoma is a collection [...] health care provider. General instructions ??? Take spgy-uep-srxfrpo and prescription medicines only as told by [...] 05/17/2005 Document Revised: 03/08/2019 Document Reviewed: 03/08/2019 [employer] Patient Education ? 2020 [employer]. CIGARETTE SMOKING: The facts are clear, cigarette smoking will shorten your life. Smoking can cause many illnesses along the way. As a healthcare provider, we recommend that you stop smoking. Assistance with quitting is available by contacting 5-033-CSLY-NOW. This is a free resource providing counseling, [...] Be sure to sign up for the [employer] patient portal, which gives you 09/05 access to your medical information ??? including these discharge instructions ??? using your computer, smartphone, or tablet. Just go to [employer] to get started. Questions? Call . [facility] would like to thank you for allowing us to assist you with your healthcare needs. MICHELE Skaggs JUDY D, (or product representative) have received the above patient education materials/instructions and have verbalized understanding: Patient Signature _ Date/Time Patient Audio/Visual Operator Signature (if needed) Date/Time Clinician/Hospital Audio/Visual Operator Signature (if needed) Date/Time Electronically signed by Interface, [facility] Conversion All Source Intelligence Technician Cerner at 02/04/2023 2:01 PM CDT documented in this encounter Plan of Treatment Not on file documented as of this encounter Visit Diagnoses Not on filedocumented in this encounter Care Teams Test Examiner Relationship Specialty Start Date End Date Jay Howell MD [address] [place] [phone] PCP - General Emergency Medicine 11/12/23 documented as of this encounter
--- OUTSIDE RECORDS SUMMARY | 2025-10-12 21:53 | XMS_ITS | Encounter Summary ---
Author Organization [employer] ([place], [place], [place], [place], [place]) Address [address] [place] [address] Care Team Providers Care Fruit Bar Maker Name Role Phone Jay Howell MD Primary Care Provider [phone] Encounter Details Date Type Department Care Team (Late st Contact Info) Description 03/18/2021 Transcribed Document [facility] [place] [address] [place] [address] ProviderJessie MD [address] [place] [phone] Social History Tobacco Use Types Packs/Day Years [...] 03/18/2021 13:27 EDT Electronically signed by Sivan [facility] Conversion Boilermaker Ship Cerner at 02/04/2023 2:02 PM CDT documented in this encounter Plan of Treatment Not on file documented as of this encounter Visit Diagnoses Not on filedocumented in this encounter Care Teams Fruit Bar Maker Relationship Specialty Start Date End Date Jay Howell MD [address] [place] [phone] PCP - General Emergency Medicine 11/12/23 documented as of this encounter
--- OUTSIDE RECORDS SUMMARY | 2025-10-12 21:53 | XMS_ITS | Encounter Summary ---
Author Organization [employer] ([place], [place], [place], [place], [place]) Address [address] [place] [address] Care Team Providers Care Cable Supervisor Name Role Phone Jay Howell MD Primary Care Provider [phone] Encounter Details Date Type Department Care Team (Late st Contact Info) Description 08/26/2020 Transcribed Document [facility] [place] Family Medicine [address] [place] [address] ProviderJessie MD [address] [place] [address] Social History Tobacco Use Types Packs/Day Years Used Date Smoking Tobacco: Never Assessed Comments Unknown Sex and Gender Information Value Date Recorded Sex Assigned at Not on file Legal Sex Female 7:30 PM CDT Gender Identity Not on file Sexual Orientation Not on file documented as of this encounter Miscellaneous Notes * Cerner Conversion Note - Jessie Yuen MD - 08/26/2020 8:24 AM QUALITY ASSISTANT Patient: SKYLER MONTOYA Age: 79 years [...] SBP H 150 (AUG 26:) 134 (AUG 26:) H 213 (AUG 25:30) DBP 71 (AUG 26:) L 53 (AUG 26:) 87 (AUG 25:30) MAP 93 (AUG 26:) 73 (AUG 26:) 125 (AUG 25:30) SpO2 96 (AUG 26:) 94 (AUG 25:30) 98 (AUG 25:30) GENERAL: The patient is elderly, sleepy EYES: [...] Level 8.4 mg/dL 08/26/2020 04:23 MICRO: ACC: [id number] ORDER: Culture Wound and Stain DATE: 08/25/2020 05:00 SOURCE: Wound SITE: Leg Lower L Reports Pre 08/26/2020 06:23 No growth GS 08/25/2020 07:26 No organisms seen. Few White Blood Cells Rare epithelial cells == ACC: [id number] ORDER: Culture Blood DATE: 08/25/2020 05:01 SOURCE: Blood SITE: Reports Pre 08/26/2020 06:01 No growth at 1 day. Pre 08/25/2020 23:02 Culture less than 24 Hrs old == ACC: [id number] ORDER: Culture Blood DATE: 08/25/2020 05:01 SOURCE: Blood SITE: Reports Pre 08/26/2020 06:01 No growth at 1 day. Pre 08/25/2020 23:02 Culture less than 24 Hrs old == Radiology Results (Last 48 hours) [id number] -- 08/25/2020 05:53 CR Chest 1 Vw [...] above. Discussed with them. Electronically signed by [facility], [facility] Conversion Motor Installer Cerner at 02/04/2023 2:09 PM CDT documented in this encounter Plan of Treatment Not on file documented as of this encounter Visit Diagnoses Not on filedocumented in this encounter Care Teams Cable Supervisor Relationship Specialty Start Date End Date Jay Howell MD [address] [place] [phone] PCP - General Emergency Medicine 11/12/23 documented as of this encounter
--- OUTSIDE RECORDS SUMMARY | 2025-10-12 21:53 | XMS_ITS | Encounter Summary ---
Author Organization [employer] ([place], [place], [place], [place], [place]) Address [address] [place] [address] Care Team Providers Care Weight Reduction Specialist Name Role Phone Jay Howell MD Primary Care Provider [phone] Encounter Details Date Type Department Care Team (Late st Contact Info) Description 09/22/2020 Transcribed Document [facility] [place] [address] [place] [address] ProviderJessie MD [address] [place] [phone] Social History Tobacco Use Types Packs/Day Years Used Date Smoking Tobacco: Never Assessed Comments Unknown Sex and Gender Information Value Date Recorded Sex Assigned at Not on file Legal Sex Female 7:30 PM CDT Gender Identity Not on file Sexual Orientation Not on file documented as of this encounter Miscellaneous Notes * Cerner Conversion Note - Jessie ProviderMD - 09/22/2020 4:56 PM SAXOPHONE ASSEMBLER Patient: SKYLER MONTOYA Age: 79 Years [...] present starting at the level of the BULKING MACHINE OPERATOR. Non significant, non-flow restricting plaque noted at common femoral artery. 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 There is a significant (50-75%) stenosis of the distal BULKING MACHINE OPERATOR. Non significant, non-flow restricting plaque noted at DPA. BULKING MACHINE OPERATOR & DPA non compressible for FERNIE. TBI: Non compressible. LEFT: Abnormal arterial runoff disease present starting at the level of the BULKING MACHINE OPERATOR. Non significant, non-flow restricting plaque noted at common femoral artery. There is a severe (>75%) stenosis of the distal BULKING MACHINE OPERATOR. BULKING MACHINE OPERATOR & DPA non compressible for FERNIE. TBI: Non compressible. documented in this encounter Plan of Treatment Not on file documented as of this encounter Visit Diagnoses Not on filedocumented in this encounter Care Teams Weight Reduction Specialist Relationship Specialty Start Date End Date Jay Howell MD [address] [place] [phone] PCP - General Emergency Medicine 11/12/23 documented as of this encounter
--- OUTSIDE RECORDS SUMMARY | 2025-10-12 21:53 | XMS_ITS | Encounter Summary ---
Author Organization [employer] ([place], [place], [place], [place], [place]) Address [address] [place] [address] Care Team Providers Care Critical Care Nurse Name Role Phone Jay Howell MD Primary Care Provider [phone] Encounter Details Date Type Department Care Team (Late st Contact Info) Description 09/15/2020 Transcribed Document [facility] [place] [address] [place] [address] ProviderJessie MD [address] [place] [address] [phone] Social History Tobacco Use Types Packs/Day Years Used Date Smoking Tobacco: Never Assessed Comments Unknown Sex and Gender Information Value Date Recorded Sex Assigned at Not on file Legal Sex Female 7:30 PM CDT Gender Identity Not on file Sexual Orientation Not on file documented as of this encounter Miscellaneous Notes * Cerner Conversion Note - Jessie Yuen MD - 09/15/2020 4:06 PM DIRECTOR IMMUNOLOGY Patient: SKYLER MONTOYA Age: 79 Years Sex: [...] present starting at the level of the FX ARTIST. Non significant, non-flow restricting plaque noted at common femoral artery. 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 There is a significant (50-75%) stenosis of the distal FX ARTIST. Non significant, non-flow restricting plaque noted at DPA. FX ARTIST & DPA non compressible for FERNIE. TBI: Non compressible. LEFT: Abnormal arterial runoff disease present starting at the level of the FX ARTIST. Non significant, non-flow restricting plaque noted at common femoral artery. There is a severe (>75%) stenosis of the distal FX ARTIST. FX ARTIST & DPA non compressible for FERNIE. TBI: Non compressible. documented in this encounter Plan of Treatment Not on file documented as of this encounter Visit Diagnoses Not on filedocumented in this encounter Care Teams Critical Care Nurse Relationship Specialty Start Date End Date Jay Howell MD [address] [place] [phone] PCP - General Emergency Medicine 11/12/23 documented as of this encounter
--- OUTSIDE RECORDS SUMMARY | 2025-10-12 21:53 | XMS_ITS | Encounter Summary ---
Author Organization [employer] ([place], [place], [place], [place], [place]) Address [address] [place] [address] Care Team Providers Care Cutting Supervisor Name Role Phone Jay Howell MD Primary Care Provider [phone] Encounter Details Date Type Department Care Team (Late st Contact Info) Description 03/18/2021 Transcribed Document [facility] Cardiology [address] [place], [place] [phone] Jorje Benítez MD [address] [place] [address] [address] [place] [address] Social History Tobacco Use Types Packs/Day Years [...] MD - 03/18/2021 8:13 AM EDT Patient: MILADIS MONTOYA Age: 80 years Sex: Female : 1940 Associated Diagnoses: None Author: JORJE BENÍTEZ MD-CAR Basic Information Vice President Of Product Marketing: Dr. Adry Dumas Subjective NAD Health Status [...] Vitamins oral tablet 1 Tab, Oral, Daily [place] 7.5 mg-325 mg oral tablet 1 Tab, [...] 162 (MAR 18 05:10) H 159 (MAR 18:14) H 170 (MAR 17 07:37) DBP L 52 (MAR 18 05:10) L 49 (MAR 18:14) 63 (MAR 17 07:37) MAP 81 (MAR [...] (Current Encounter/Past 24 Hours) ProBNP 576 pg/mL [place] 03/17/2021 04:45 Radiology Results (Last 48 hours) [id number] -- 03/17/2021 13:59 CR Hip Uni Comp [...] filedocumented in this encounter Care Teams Cutting Supervisor Relationship Specialty Start Date End Date Jay Howell MD [address] [place] [phone] PCP - General Emergency Medicine 11/12/23 documented as of this encounter
--- OUTSIDE RECORDS SUMMARY | 2025-10-12 21:53 | XMS_ITS | Encounter Summary ---
Author Organization [employer] ([place], [place], [place], [place], [place]) Address [address] [place] [address] Care Team Providers Care Costume Shop Coordinator Name Role Phone Jay Howell MD Primary Care Provider [phone] Encounter Details Date Type Department Care Team (Late st Contact Info) Description 09/01/2020 Transcribed Document [facility] [place] [address] [place] [address] ProviderJessie MD [address] [place] [address] [phone] Social History Tobacco Use Types Packs/Day Years Used Date Smoking Tobacco: Never Assessed Comments Unknown Sex and Gender Information Value Date Recorded Sex Assigned at Not on file Legal Sex Female 7:30 PM CDT Gender Identity Not on file Sexual Orientation Not on file documented as of this encounter Miscellaneous Notes * Cerner Conversion Note - Jessie Yuen MD - 09/01/2020 1:19 PM PROFESSOR OF GRAPHIC DESIGN Final Discharge Planning Entered On: 09/01/2020 13:20 EST Performed On: 09/01/2020 13:19 EST by KAVITA PELLETIER RN-Archivist Military History Final Discharge Planning Discharge Arrangements : Patient Post-Acute Information Patient Name: SKYLER MONTOYA Gender: Female : [birth year] Age: 79 Years [place] Referral(s): Service: Organization: Business Address: Phone Number: [address], [address] Patient Offered Choice/Affiliations Explained : [...] : Home Health Services (Related/SOC within 3 days)-06 KAVITA PELLETIER RN-Archivist Military History - 09/01/2020 13:19 EST Final Narrative Note Final Narrative Note : INR-1.4. Pt will dc home today on Lovenox to bridge Coumadin. Orders for HH to INR sent to [facility] and hui jauregui in intake and of pt's dc home today. F/u appts scheduled with PCP, Vasc, and ID. No other CM needs noted. KAVITA PELLETIER RN-Archivist Military History - 09/01/2020 13:19 EST Electronically signed by Sivan, [facility] Conversion Computer Networking Instructor Cerner at 02/04/2023 2:17 PM CDT documented in this encounter Plan of Treatment Not on file documented as of this encounter Visit Diagnoses Not on filedocumented in this encounter Care Teams Costume Shop Coordinator Relationship Specialty Start Date End Date Jay Howell MD [address] [place] [phone] PCP - General Emergency Medicine 11/12/23 documented as of this encounter
--- OUTSIDE RECORDS SUMMARY | 2025-10-12 21:53 | XMS_ITS | Encounter Summary ---
Author Organization [employer] ([place], [place], [place], [place], [place]) Address [address] [place] [address] Care Team Providers Care Ror Engineer Name Role Phone Jay Howell MD Primary Care Provider [phone] Encounter Details Date Type Department Care Team (Late st Contact Info) Description 08/25/2020 Transcribed Document [facility] [place] Family Medicine [address] [place] [address] ProviderJessie MD [address] [place] [address] [phone] Social History Tobacco Use Types Packs/Day Years Used Date Smoking Tobacco: Never Assessed Comments Unknown Sex and Gender Information Value Date Recorded Sex Assigned at Not on file Legal Sex Female 7:30 PM CDT Gender Identity Not on file Sexual Orientation Not on file documented as of this encounter Miscellaneous Notes * Cerner Conversion Note - Jessie ProviderMD - 08/25/2020 8:09 AM INTERFACE ANALYST ED Event Note Entered On: 08/25/2020 8:11 EST Performed On: 08/25/2020 8:09 EST by TRACIE ACUNA RN ED Event Note ED Event Date/Time : 08/25/2020 8:09 EST ED Event Location : Assigned room ED Description of Event : Pt awake and was given Zosyn IV per order. Pt has to have a bed change to Tele. TRACIE ACUNA RN - 08/25/2020 8:09 EST documented in this encounter Plan of Treatment Not on file documented as of this encounter Visit Diagnoses Not on filedocumented in this encounter Care Teams Ror Engineer Relationship Specialty Start Date End Date Jay Howell MD [address] [place] [phone] PCP - General Emergency Medicine 11/12/23 documented as of this encounter
--- OUTSIDE RECORDS SUMMARY | 2025-10-12 21:53 | XMS_ITS | Encounter Summary ---
Author Organization [employer] ([place], [place], [place], [place], [place]) Address [address] [place] [address] Care Team Providers Care Intake Coordinator Name Role Phone Jay Howell MD Primary Care Provider [phone] Encounter Details Date Type Department Care Team (Late st Contact Info) Description 03/18/2021 Transcribed Document [facility] [place] [address] [place] [address] ProviderJessie MD [address] [place], [place] [address]131 Social History Tobacco Use Types Packs/Day Years Used Date Smoking Tobacco: Never Assessed Comments Unknown Sex and Gender Information Value Date Recorded Sex Assigned at Not on file Legal Sex Female 7:30 PM CDT Gender Identity Not on file Sexual Orientation Not on file documented as of this encounter Miscellaneous Notes * Cerner Conversion Note - Jessie ProviderMD - 03/18/2021 2:00 AM CDT Senior Property Accountant Details Entered On: 03/18/2021 7:00 EDT Performed [...] 03/18/2021 7:00 EDT Electronically signed by Sivan [facility] Conversion Community Aide Cerner at 02/04/2023 2:06 PM CDT documented in this encounter Plan of Treatment Not on file documented as of this encounter Visit Diagnoses Not on filedocumented in this encounter Care Teams Intake Coordinator Relationship Specialty Start Date End Date Jay Howell MD [address] [place] [phone] PCP - General Emergency Medicine 11/12/23 documented as of this encounter
--- OUTSIDE RECORDS SUMMARY | 2025-10-12 21:53 | XMS_ITS | Encounter Summary ---
Author Organization [employer] ([place], [place], [place], [place], [place]) Address [address] [place] [address] Care Team Providers Care Card Room Manager Name Role Phone Jay Howell MD Primary Care Provider [phone] Encounter Details Date Type Department Care Team (Late st Contact Info) Description 08/26/2020 Transcribed Document [facility] [place] Family Medicine [address] [place] [address] ProviderJessie MD [address] [place], [place] [phone] Social History Tobacco Use Types Packs/Day Years Used Date Smoking Tobacco: Never Assessed Comments Unknown Sex and Gender Information Value Date Recorded Sex Assigned at Not on file Legal Sex Female 7:30 PM CDT Gender Identity Not on file Sexual Orientation Not on file documented as of this encounter Miscellaneous Notes * Cerner Conversion Note - Jessie ProviderMD - 08/26/2020 2:16 PM TOURING PRODUCTION MANAGER Initial Discharge Planning Entered On: 08/26/2020 14:19 EST Performed On: 08/26/2020 14:16 EST by KAVITA PELLETIER RN-Machine Room Operator Initial Assessment I Previously Documented Living Environment : No qualifying data available. Living Situation : Home Patient Lives With : Spouse Employment/Vocation : retired Emergency Contact #1 : rodney pearsonlee Emergency Contact #1 Emergency Contact #1 Relationship : son Emergency Contact #2 : . Emergency Contact #2 Phone Number : . Emergency Contact #2 Relationship : . Enter Doctors Name : TARA CHEN (REF), -MED Does Patient have PCP Listed? : Yes Medical Durable Power of Online Publisher Name : No KAVITA PELLETIER RN-Machine Room Operator - 08/26/2020 14:16 EST Initial Assessment II Sensory and Motor Deficits : Weakness Current Home Treatments and Equipment : CPAP, Walker KAVITA PELLETIER RN-Machine Room Operator - 08/26/2020 14:16 EST Narrative Note [...] upon POC. CM will follow. KAVITA PELLETIER RN-Machine Room Operator - 08/26/2020 14:16 EST documented in this encounter Plan of Treatment Not on file documented as of this encounter Visit Diagnoses Not on filedocumented in this encounter Care Teams Card Room Manager Relationship Specialty Start Date End Date Jay Howell MD [address] [place] [phone] PCP - General Emergency Medicine 11/12/23 documented as of this encounter
--- OUTSIDE RECORDS SUMMARY | 2025-10-12 21:53 | XMS_ITS | Encounter Summary ---
Author Organization [employer] ([place], [place], [place], [place], [place]) Address [address] [place] [address] Care Team Providers Care Performance Manager Name Role Phone Jay Howell MD Primary Care Provider [phone] Encounter Details Date Type Department Care Team (Late st Contact Info) Description 03/18/2021 Transcribed Document [facility] [place] [address] [place] [address] ProviderJessie MD [address] [place], [place] [phone] Social History Tobacco Use Types Packs/Day Years [...] on filedocumented in this encounter Care Teams Performance Manager Relationship Specialty Start Date End Date Jay Howell MD [address] [place] [phone] PCP - General Emergency Medicine 11/12/23 documented as of this encounter
--- OUTSIDE RECORDS SUMMARY | 2025-10-12 21:53 | XMS_ITS | Encounter Summary ---
Author Organization [employer] ([place], [place], [place], [place], [place]) Address [address] [place] [address] Care Team Providers Care Criminal Investigator Customs Name Role Phone Jay Howell MD Primary Care Provider [phone] Encounter Details Date Type Department Care Team (Late st Contact Info) Description 08/25/2020 Transcribed Document [facility] [place] [address] [place] [address] ProviderJessie MD [address] [place] [phone] Social History Tobacco Use Types Packs/Day Years Used Date Smoking Tobacco: Never Assessed Comments Unknown Sex and Gender Information Value Date Recorded Sex Assigned at Not on file Legal Sex Female 7:30 PM CDT Gender Identity Not on file Sexual Orientation Not on file documented as of this encounter Miscellaneous Notes * Cerner Conversion Note - Jessie ProviderMD - 08/25/2020 1:02 PM MD OPHTHALMOLOGIST Patient: SKYLER MONTOYA Age: 79 years Sex: [...] Dr. Avtar Moeller Electronically signed by Sivan, [facility] Conversion Kickboxing Instructor Cerner at 02/04/2023 2:06 PM CDT documented in this encounter Plan of Treatment Not on file documented as of this encounter Visit Diagnoses Not on filedocumented in this encounter Care Teams Criminal Investigator Customs Relationship Specialty Start Date End Date Jay Howell MD [address] [place] [phone] PCP - General Emergency Medicine 11/12/23 documented as of this encounter
--- OUTSIDE RECORDS SUMMARY | 2025-10-12 21:53 | XMS_ITS | Encounter Summary ---
Author Organization [employer] ([place], [place], [place], [place], [place]) Address [address] [address] Care Team Providers Care Extruder Operator Vertical Name Role Phone Jay Howell MD Primary Care Provider [phone] Encounter Details Date Type Department Care Team (Late st Contact Info) Description 08/25/2020 Transcribed Document [facility] [place] Family Medicine [address] [place] [address] ProviderJessie MD [address] [place] [phone] Social History Tobacco Use Types Packs/Day Years Used Date Smoking Tobacco: Never Assessed Comments Unknown Sex and Gender Information Value Date Recorded Sex Assigned at Not on file Legal Sex Female 7:30 PM CDT Gender Identity Not on file Sexual Orientation Not on file documented as of this encounter Miscellaneous Notes * Cerner Conversion Note - Jessie Yuen MD - 08/25/2020 7:20 AM SILVERWARE CLEANER Patient: SKYLER MONTOYA Age: 79 years Sex: [...] multiple stent placements. The patient presented to [facility] ER after recent fall with hematoma required [...] with her . She has a strong christianity treasure. She alex like to stay Full [...] on filedocumented in this encounter Care Teams Extruder Operator Vertical Relationship Specialty Start Date End Date Jay Howell MD [address] [place] [phone] PCP - General Emergency Medicine 11/12/23 documented as of this encounter
--- OUTSIDE RECORDS SUMMARY | 2025-10-12 21:53 | XMS_ITS | Encounter Summary ---
Author Organization [employer] ([place], [place], [place], [place], [place]) Address [address] [place] [address] Care Team Providers Care Care Manager Name Role Phone Jay Howell MD Primary Care Provider [phone] Encounter Details Date Type Department Care Team (Late st Contact Info) Description 09/01/2020 Transcribed Document [facility] [place] Family Medicine [address] [place] [address] ProviderJessie MD [address] [place] [address] [phone] Social History Tobacco Use Types Packs/Day Years Used Date Smoking Tobacco: Never Assessed Comments Unknown Sex and Gender Information Value Date Recorded Sex Assigned at Not on file Legal Sex Female 7:30 PM CDT Gender Identity Not on file Sexual Orientation Not on file documented as of this encounter Miscellaneous Notes * Cerner Conversion Note - Jessie ProviderMD - 09/01/2020 9:27 AM PLASTIC AND RECONSTRUCTIVE SURGEON Patient: SKYLER BAUTISTA Age: 79 Years Sex: [...] [1] Summary BILATERAL: Monophasic waveforms of the IMPLEMENTATION SPECIALIST, & DPA . Unable to compress IMPLEMENTATION SPECIALIST and DPA (>220 mmHg). Toe brachial index: Non-compressible [2] RIGHT: Abnormal arterial runoff disease present starting at the level of the IMPLEMENTATION SPECIALIST. Non significant, non-flow restricting plaque noted at common femoral artery. 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 There is a significant (50-75%) stenosis of the distal IMPLEMENTATION SPECIALIST. Non significant, non-flow restricting plaque noted at DPA. IMPLEMENTATION SPECIALIST & DPA non compressible for FERNIE. TBI: Non compressible. LEFT: Abnormal arterial runoff disease present starting at the level of the IMPLEMENTATION SPECIALIST. Non significant, non-flow restricting plaque noted at common femoral artery. There is a severe (>75%) stenosis of the distal IMPLEMENTATION SPECIALIST. IMPLEMENTATION SPECIALIST & DPA non compressible for FERNIE. TBI: [...] multiple stent placements. The patient presented to [facility] ER after recent fall with hematoma [...] Vitamins oral tablet 1 Tab, Oral, Daily [place] 7.5 mg-325 mg oral tablet 1 Tab, [...] -- Start: 08/26/20 17:14:00 EST, 60 gm [id number]:[id number] george, Isolation: Standard Precautions, Instructions: Diabetic Diet [...] Ankle Min 3 Vws LT; Shannon Marquez, Air Quality Manager 08/22/2020 21:21 EST [2] [facility]; ERMA ZHENG MD-AMALIA 08/25/2020 11:29 EST [3] [facility]; ERMA ZHENG MD-AMALIA 08/25/2020 11:40 EST [4] MRI Spine Lumbar WO; Leti Wakefield, MULTI MODALITY TECHNOLOGIST 08/25/2020 15:21 EST [5] CT Abdomen WO W; Gus Lopez, SLEEVE SEPARATOR 08/27/2020 18:06 EST [6] Admission History and Physical; BETH DAVALOS MD-INT 08/25/2020 06:23 EST documented in this encounter Plan of Treatment Not on file documented as of this encounter Visit Diagnoses Not on filedocumented in this encounter Care Teams Care Manager Relationship Specialty Start Date End Date Jay Howell MD [address] [place] [phone] (work) PCP - General Emergency Medicine 11/12/23 documented as of this encounter
--- OUTSIDE RECORDS SUMMARY | 2025-10-12 21:53 | XMS_ITS | Encounter Summary ---
Author Organization [employer] ([place], [place], [place], [place], [place]) Address [address] [place] [address] Care Team Providers Care Dextrine Mixer Name Role Phone Jay Howell MD Primary Care Provider [phone] Encounter Details Date Type Department Care Team (Late st Contact Info) Description 08/25/2020 Transcribed Document [facility] [place] Family Medicine [address] [place] [address] ProviderJessie MD [address] [place] [address] Social History Tobacco Use Types Packs/Day Years Used Date Smoking Tobacco: Never Assessed Comments Unknown Sex and Gender Information Value Date Recorded Sex Assigned at Not on file Legal Sex Female 7:30 PM CDT Gender Identity Not on file Sexual Orientation Not on file documented as of this encounter Miscellaneous Notes * Cerner Conversion Note - Jessie Yuen MD - 08/25/2020 7:28 AM DIRECTOR MEDICARE SALES WOCN Inpatient Documentation Entered On: 08/25/2020 15:46 [...] - 08/25/2020 15:46 EST Electronically signed by Sivan [facility] Conversion Casting Cleaner Cerner at 02/04/2023 2:08 PM CDT documented in this encounter Plan of Treatment Not on file documented as of this encounter Visit Diagnoses Not on filedocumented in this encounter Care Teams Dextrine Mixer Relationship Specialty Start Date End Date Jay Howell MD [address] [place] [phone] PCP - General Emergency Medicine 11/12/23 documented as of this encounter
--- OUTSIDE RECORDS SUMMARY | 2025-10-12 21:53 | XMS_ITS | Encounter Summary ---
Author Organization [employer] ([place], [place], [place], [place], [place]) Address [address] [place] [address] Care Team Providers Care Product Sales Engineer Name Role Phone Jay Howell MD Primary Care Provider [phone] Encounter Details Date Type Department Care Team (Late st Contact Info) Description 08/26/2020 Transcribed Document [facility] [place] [address] [place] [address] ProviderJessie MD [address] [place], [place] [address] Social History Tobacco Use Types Packs/Day Years Used Date Smoking Tobacco: Never Assessed Comments Unknown Sex and Gender Information Value Date Recorded Sex Assigned at Not on file Legal Sex Female 7:30 PM CDT Gender Identity Not on file Sexual Orientation Not on file documented as of this encounter Miscellaneous Notes * Cerner Conversion Note - Jessie ProviderMD - 08/26/2020 1:15 PM UNDERWRITING SUPPORT MANAGER [facility] Main OR Preop Summary Primary Physician: KAELA HEBERT MD Finalized Date/Time: 08/26/20 13:59:45 Pt. Name: SKYLER MONTOYA.O.B./Sex: 1940 Female Med Rec #: [id number] Physician: BETH DAVALOS MD-INT Financial #: [id number] Pt. Type: I Room/Bed: [facility]/ Admit/Disch: 08/25/20 05:53:00 - Institution: [facility] PreOp Case Times Entry 1 In Preop 08/26/20 10:52:00 Ready for Holding n/a Room Patient Ready for 08/26/20 11:30:00 Surgery Patient Out of Preop 08/26/20 12:57:00 Patient Out of n/a Holding Room Last Modified By: CARLTON GUTIERREZ 08/26/20 13:59:44 [facility] PreOp Case Times Audit 08/26/20 13:59:44 Director Clinical Applications: BEATRISFEVJ Modifier: [email or web address] <+> 1 Patient Out of Preop 08/26/20 11:36:02 Director Clinical Applications: BEATRISFEVJ Modifier: [email or web address] <+> 1 Patient Ready for Surgery Finalized By: CARLTON GUTIERREZ Document Signatures Signed By: CARLTON GUTIERREZ 08/26/20 13:59 Electronically signed by Sivan [facility] Conversion Top Lift Nailer Cerner at 02/04/2023 2:16 PM CDT documented in this encounter Plan of Treatment Not on file documented as of this encounter Visit Diagnoses Not on filedocumented in this encounter Care Teams Product Sales Engineer Relationship Specialty Start Date End Date Jay Howell MD [address] [place] [phone] PCP - General Emergency Medicine 11/12/23 documented as of this encounter
--- OUTSIDE RECORDS SUMMARY | 2025-10-12 21:54 | XMS_ITS | Encounter Summary ---
Author Organization [employer] ([place], [place], [place], [place], [place]) Address [address] [place] [address] Care Team Providers Care Artist Color Separation Name Role Phone Jay Howell MD Primary Care Provider [phone] Encounter Details Date Type Department Care Team (Late st Contact Info) Description 03/18/2021 Transcribed Document [facility] [place] [address] [place] [address] ProviderJessie MD [address] [place], [place] [phone] Social History Tobacco Use Types Packs/Day Years Used Date Smoking Tobacco: Never Assessed Comments Unknown Sex and Gender Information Value Date Recorded Sex Assigned at Not on file Legal Sex Female 7:30 PM CDT Gender Identity Not on file Sexual Orientation Not on file documented as of this encounter Miscellaneous Notes * Cerner Conversion Note - Jessie ProviderMD - 03/18/2021 6:00 AM CDT Pain [...] Sivan, [facility] Conversion Environment Coordinator Cerner at 02/04/2023 2:20 PM CDT documented in this encounter Plan of Treatment Not on file documented as of this encounter Visit Diagnoses Not on filedocumented in this encounter Care Teams Artist Color Separation Relationship Specialty Start Date End Date Jay Howell MD [address] [place] [phone] PCP - General Emergency Medicine 11/12/23 documented as of this encounter
--- OUTSIDE RECORDS SUMMARY | 2025-10-12 21:54 | XMS_ITS | Encounter Summary ---
Author Organization [employer] ([place], [place], [place], [place], [place]) Address [address] [place] [address] Care Team Providers Care Axminster Weaver Name Role Phone Jay Howell MD Primary Care Provider [phone] Encounter Details Date Type Department Care Team (Late st Contact Info) Description 03/19/2021 Transcribed Document [facility] [place] [address] [place] [address] ProviderJessie MD [address] [place], [place] [id number] Social History Tobacco Use Types Packs/Day Years Used Date Smoking Tobacco: Never Assessed Comments Unknown Sex and Gender Information Value Date Recorded Sex Assigned at Not on file Legal Sex Female 7:30 PM CDT Gender Identity Not on file Sexual Orientation Not on file documented as of this encounter Miscellaneous Notes * Cerner Conversion Note - Jessie ProviderMD - 03/19/2021 2:00 AM CDT Utility Systems Repairer Operator Details Entered On: 03/19/2021 2:31 EDT Performed [...] 03/19/2021 2:31 EDT Electronically signed by Sivan [facility] Conversion Honing Job Setter Cerner at 02/04/2023 2:11 PM CDT documented in this encounter Plan of Treatment Not on file documented as of this encounter Visit Diagnoses Not on filedocumented in this encounter Care Teams Axminster Weaver Relationship Specialty Start Date End Date Jay Howell MD [address] [place] [phone] PCP - General Emergency Medicine 11/12/23 documented as of this encounter
--- OUTSIDE RECORDS SUMMARY | 2025-10-12 21:54 | XMS_ITS | Encounter Summary ---
Author Organization [employer] ([place], [place], [place], [place], [place]) Address [address] [place] [address] Care Team Providers Care Cooking Chef Name Role Phone Jay Howell MD Primary Care Provider [phone] Encounter Details Date Type Department Care Team (Late st Contact Info) Description 09/01/2020 Transcribed Document [facility] [place] Family Medicine [address] [place] [address] ProviderJessie MD [address] [place] [id number] Social History Tobacco Use Types Packs/Day Years Used Date Smoking Tobacco: Never Assessed Comments Unknown Sex and Gender Information Value Date Recorded Sex Assigned at Not on file Legal Sex Female 7:30 PM CDT Gender Identity Not on file Sexual Orientation Not on file documented as of this encounter Miscellaneous Notes * Cerner Conversion Note - Jessie ProviderMD - 09/01/2020 2:19 PM SMASHER Patient Education Materials Follows: Negative Pressure Wound [...] bag. ??? Soap and water, or hand hardness inspector. ??? Wound cleanser or salt-water solution (saline). [...] and water are not available, use hand hardness inspector. 3. Set up a clean station for [...] and water are not available, use hand hardness inspector. Clean your wound ??? Wear gloves, protective [...] and water are not available, use hand hardness inspector. Apply new dressing ??? Wear gloves, protective [...] and water are not available, use hand hardness inspector. 8. Turn the pump back on. The sponge dressing should collapse. Do not change the settings on the machine without talking to a health care provider. 9. Replace the container in the pump that collects fluid if it is full. Replace the container per the galvanizer zinc's instructions or at least once a week, [...] clamps are open. ??? Do not use rlix-ohu-nwtlqru medicated or antiseptic creams, sprays, liquids, or [...] 12/25/2012 Document Revised: 01/25/2020 Document Reviewed: 12/21/2019 [employer] Patient Education ? 2019 [employer] Hematology Hematoma A hematoma is a [...] health care provider. General instructions ??? Take adhy-epp-jecppen and prescription medicines only as told by [...] 05/17/2005 Document Revised: 03/08/2019 Document Reviewed: 03/08/2019 [employer] Patient Education ? 2020 [employer] Infectious Disease Cellulitis, Adult Cellulitis is [...] these instructions at home: Medicines ??? Take xfnc-swf-kzedhyk and prescription medicines only as told by [...] 03/21/2009 Document Revised: 02/22/2019 Document Reviewed: 02/22/2019 [employer] Patient Education ? 2019 [employer] Pharmacology What You Need to Know [...] other medicines or supplements? Many prescription and whnm-lak-nsnsrlr medicines can interfere with warfarin. Talk with your health care provider or your pharmacist before starting or stopping any new medicines. This includes uaps-eoh-tlefccg vitamins, dietary supplements, herbal medicines, and pain medicines. Your warfarin dosage may need to be adjusted. ??? Some common ajut-cfa-gikkzip medicines that may increase the risk of [...] you work with a diet and clinical nutrition manager (dietitian). ??? Vitamin K decreases [...] ??? Noodles, eggs, and spinach, enriched. ??? [place] sprouts, raw or cooked. ??? Beet greens, [...] diet. ??? You start or stop any uysi-oau-jkghpwp medicine, prescription medicine, or dietary supplement. ??? [...] 10/03/2006 Document Revised: 05/16/2018 Document Reviewed: 12/29/2016 [employer] Patient Education ? 2020 [employer]. documented in this encounter Plan of Treatment Not on file documented as of this encounter Visit Diagnoses Not on filedocumented in this encounter Care Teams Cooking Chef Relationship Specialty Start Date End Date Jay Howell MD [address] [place] [phone] PCP - General Emergency Medicine 11/12/23 documented as of this encounter
--- OUTSIDE RECORDS SUMMARY | 2025-10-12 21:54 | XMS_ITS | Clinical Summary ---
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 881143333 (SNOMED CT) Active Arlen Feng Peripheral vascular disease Benign Essential Hypertension 9618973 (SNOMED CT) Active Arlen Feng Benign essential hypertension Medications Medication Instructions Start Date Stop Date Generic Name [facility] Provider VALSARTAN 160 MG TABS 1 tablet po daily VALSARTAN 02842898846 Leti Dela Cruz ALPRAZOLAM 0.5 MG TABS Take one by mouth daily/PRN ALPRAZOLAM 49106399165 Lexi Nascimentodox VIBRAMYCIN 100 MG ORAL CAPSULE Take by mouth twice a day DOXYCYCLINE HYCLATE 14713844708 Lexi Gipson TERBINAFINE HCL 250 MG TABS Take one by mouth daily TERBINAFINE HCL 43691222915 Lexi Gipson RANEXA 1000 MG ORAL TABLET EXTENDED RELEASE 12 HOUR Take by mouth twice a day RANOLAZINE 64869215514 Lexi Gipson CLOPIDOGREL BISULFATE 75 MG TABS Take one by mouth daily CLOPIDOGREL BISULFATE 61500349618 Lexi Nascimentodox OMEPRAZOLE 40 MG CPDR Take one by mouth daily OMEPRAZOLE 57999511150 Lexi Nascimentodox NORVASC 10 MG TABS Take one by mouth daily AMLODIPINE BESYLATE 64142263333 Lexi Nascimentodox HYDROCODONE-ACET AMINOPHEN 7.5-325 MG TABS Q6H/PRN HYDROCODONE-ACET AMINOPHEN 12705077262 Lexi Nascimentodox DAILY MULTIVITAMIN CAPS Take one by mouth daily MULTIPLE VITAMINS-MINERAL S 05856885251 Lexi Nascimentodox METFORMIN HCL 500 MG TABS Take by mouth twice a day METFORMIN HCL 03393327467 Lexi Thorpex LOVENOX 60 MG/0.6ML SUBCUTANEOUS SOLUTION 70 mg, SubCutaneous, Q12H ENOXAPARIN SODIUM 12983345954 Lexi Nascimentodox LOSARTAN POTASSIUM 100 MG TABS Take one by mouth daily LOSARTAN POTASSIUM 89490298364 Lexi Nascimentodox ACIDOPHILUS LACTOBACILLUS CAPS Take two by mouth daily LACTOBACILLUS 45976979116 Lexi Gipson HYDRALAZINE HCL 50 MG TABS 2 Tab, Oral, BID HYDRALAZINE HCL 35730325530 Lexi Thorpex DORZOLAMIDE HCL 2 % SOLN 1 Drop, Eye Right, BID DORZOLAMIDE HCL 01057922119 Lexi Nascimentodox WARFARIN SODIUM 3 MG TABS Take one by mouth daily WARFARIN SODIUM 20975520184 Lexi Nascimentodox CARVEDILOL 6.25 MG TABS Take one by mouth 3 times daily, morning, afternoon and evening. CARVEDILOL 47828117210 Lexi Nascimentodox ATORVASTATIN CALCIUM 80 MG TABS Take one by mouth daily ATORVASTATIN CALCIUM 88073831859 Lexi Gipson AMOXICILLIN-POT CLAVULANATE 875-125 MG TABS Take by mouth twice a day AMOXICILLIN-POT CLAVULANATE 45427044815 Lexi Gipson Medications Administered No information available. [...]
--- OUTSIDE RECORDS SUMMARY | 2025-10-12 21:54 | XMS_ITS | Encounter Summary ---
Author Organization [employer] ([place], [place], [place], [place], [place]) Address [address] [address] Care Team Providers Care Manager Port Name Role Phone Jay Howell MD Primary Care Provider [phone] Encounter Details Date Type Department Care Team (Late st Contact Info) Description 03/19/2021 Transcribed Document [facility] [place] [address] [place] [address] ProviderJessie MD [address] [place], [place] [address] Social History Tobacco Use Types Packs/Day Years [...] 2. Calcification of the vertebral origins with uwbj-ez-abgwpnpx stenosis. 3. Extensive vascular calcification. 4. Severe [...] difficult. The CTA also shows bilateral proximal MACHINE PAN GREASER stenoses. The differential could include one or [...] filedocumented in this encounter Care Teams Manager Port Relationship Specialty Start Date End Date Jay Howell MD [address] [place] [phone] PCP - General Emergency Medicine 11/12/23 documented as of this encounter
--- OUTSIDE RECORDS SUMMARY | 2025-10-12 21:54 | XMS_ITS | Encounter Summary ---
Author Organization [employer] ([place], [place], [place], [place], [place]) Address [address] [place] [address] Care Team Providers Care Plating Equipment Tender Name Role Phone Jay Howell MD Primary Care Provider [phone] Encounter Details Date Type Department Care Team (Late st Contact Info) Description 12/12/2018 Transcribed Document [facility] [place] Family Medicine [address] [place] [address] ProviderJessie MD [address] [place] [address] Social History Tobacco Use Types Packs/Day Years Used Date Smoking Tobacco: Never Assessed Comments Unknown Sex and Gender Information Value Date Recorded Sex Assigned at Not on file Legal Sex Female 7:30 PM CDT Gender Identity Not on file Sexual Orientation Not on file documented as of this encounter Miscellaneous Notes * Cerner Conversion Note - Jessie ProviderMD - 12/12/2018 10:20 PM FITNESS COACH Electronically signed by [facility] Conversion Molder Machine Tender Cerner at 02/04/2023 1:59 PM CDT documented in this encounter Plan of Treatment Not on file documented as of this encounter Visit Diagnoses Not on filedocumented in this encounter Care Teams Plating Equipment Tender Relationship Specialty Start Date End Date Jay Howell MD [address] [place] [phone] PCP - General Emergency Medicine 11/12/23 documented as of this encounter
--- OUTSIDE RECORDS SUMMARY | 2025-10-12 21:54 | XMS_ITS | Encounter Summary ---
Author Organization [facility] ([place], [place], [place], [place], [place]) Address [address] [place] [address] Care Team Providers Care Retort Feeder Ground Bone Name Role Phone Jay Howell MD Primary Care Provider [phone] Encounter Details Date Type Department Care Team (Late st Contact Info) Description 03/19/2021 Transcribed Document [facility] [place] Family Medicine [address] [place] [address] ProviderJessie MD [address] [place], [place] [address] Social History Tobacco Use Types Packs/Day Years Used Date Smoking Tobacco: Never Assessed Comments Unknown Sex and Gender Information Value Date Recorded Sex Assigned at Not on file Legal Sex Female 7:30 PM CDT Gender Identity Not on file Sexual Orientation Not on file documented as of this encounter Miscellaneous Notes * Cerner Conversion Note - Jessie ProviderMD - 03/19/2021 12:00 AM CDT Pain [...] filedocumented in this encounter Care Teams Retort Feeder Ground Bone Relationship Specialty Start Date End Date Jay Howell MD [address] [place] [phone] PCP - General Emergency Medicine 11/12/23 documented as of this encounter
--- OUTSIDE RECORDS SUMMARY | 2025-10-12 21:54 | XMS_ITS | Encounter Summary ---
Author Organization [employer] ([place], [place], [place], [place], [place]) Address [address] [place] [address] Care Team Providers Care Network Support Name Role Phone Jay Howell MD Primary Care Provider [phone] Encounter Details Date Type Department Care Team (Late st Contact Info) Description 03/19/2021 Transcribed Document [facility] [place] Family Medicine [address] [place] [address] ProviderJessie MD [address] [place] [address] Social History Tobacco Use Types [...] Yuen MD - 03/19/2021 2:50 PM CDT [facility] [place] [id number] SKYLER MONTOYA :1940 Visit Time:03/17/2021 Your Visit Summary Your Care Team Admitting Physician - MARIA ELENA DAVALOS MD-[facility] Attending Physician - SARAH CONTEH MD Primary Care Physician - TARA CHEN (REF), -MED Referring Physician - PHY, SELF REFERRED Your Diagnosis Back strain Right wrist fracture Syncope, Syncope and collapse, Syncope and collapse Syncope/Near syncope Discharge Vitals Temperature 36.9 ??C Heart Rate (Monitored) 68 Blood Pressure 133/46 What to do next Instructions From Your Care Team Discharge Follow Up Instructions: Follow Up Instructions: f/u Dr. Carrasco or [facility] ( Hand Surgery) on d/c. [phone] Activity: Discharge Activity: Activity as tolerated Diet: Discharge Diet: Heart healthy diet Driving Restriction: Do Not Drive due to fainting episode until your doctor says you can Follow-Up Appointments Follow Up with ANDERSON CARRASCO MD When Within 3 to 5 days Comments for ortho eval for fracture wrist Where: [address] [place] [address]- Follow Up with WOO JOHNSTON When Within 2 to 4 weeks Where: [address] [place] [address] [place] [address]- Business (1) Follow Up with JEFFERSON MENDOZA When Within 6 weeks Comments Patient should call for a follow up appointment with [facility] Neurology. Where: [address] [place] [address]- Business (1) Medications What How Much When [...] activities are safe for you. ??? Take ncxw-ihb-cbtygab and prescription medicines only as told by [...] provider. Document Revised: 07/31/2018 Document Reviewed: 03/26/2017 [employer] Patient Education ?? 2020 [employer] Near-Syncope Near-syncope is when you suddenly [...] these instructions at home: Medicines ??? Take gzfv-rkq-uxtbvzc and prescription medicines only as told by [...] Reviewed: 08/22/2019 Elsevier Patient Education ?? 2020 [employer]. Emergency Awareness and Preventative Care STROKE is [...] Assistance with quitting is available by contacting 8-207-AABL-NOW. This is a free resource providing counseling, [...] range between ( 0.0 and 7.0 ) [place] #: 0.59 K/uL -- Normal range between ( 0.16 and 1.00 ) [place] #: 0.00 x10(3)/uL -- Normal range between ( 0.00 and 0.80 ) [place] %: 8.9 % -- Normal range between [...] /LPF Urine Bilirubin Dipstick: Negative Urine Specific Tracy: 1.015 -- Normal range between ( 1.005 [...] Duplex BILAT: VL Carotid Duplex BILAT Patient Name:MONTOYASKYLER STEPHEN I have received and understand this information and was given the opportunity to ask questions. Patient/Finisher Plate Name: Patient/Finisher Plate Signature: Relationship to Patient: Clinician/Hospital Finisher Plate Signature: Date: Electronically signed by Sivan, [facility] Conversion Pearl Hand Cerner at 02/04/2023 2:18 PM CDT documented in this encounter Plan of Treatment Not on file documented as of this encounter Visit Diagnoses Not on filedocumented in this encounter Care Teams Network Support Relationship Specialty Start Date End Date Jay Howell MD [address] [place] [phone] PCP - General Emergency Medicine 11/12/23 documented as of this encounter
--- OUTSIDE RECORDS SUMMARY | 2025-10-12 21:54 | XMS_ITS | Encounter Summary ---
Author Organization [employer] ([place], [place], [place], [place], [place]) Address [address] [place] [address] Care Team Providers Care Ergonomics Technician Name Role Phone Jay Howell MD Primary Care Provider [phone] Encounter Details Date Type Department Care Team (Late st Contact Info) Description 03/16/2021 Transcribed Document [facility] [place] Family Medicine [address] [place] [address] ProviderJessie MD [address] [place], [place] [address] Social History Tobacco Use Types Packs/Day Years [...] Communication Barrier : None Primary Language : Samoan Any Spiritual/Cultural Needs or Requests : No [...] 12:57 EDT Respiratory Respiratory Assessment WDL : Viri Nixon RN - 03/16/2021 12:57 EDT Gastrointestinal ED [...] WDL : WDL with exceptions (Comment: Dizziness BROADCAST TECHNICIAN, states that she passed out and the room was spinning [Viri Gonsales RN - 03/16/2021 12:57 EDT] ) Viri Gonsales RN - 03/16/2021 12:57 EDT Electronically signed by [facility] [place] [facility] Conversion Fudge Candy Maker Cerner at 02/04/2023 2:07 PM CDT documented in this encounter Plan of Treatment Not on file documented as of this encounter Visit Diagnoses Not on filedocumented in this encounter Care Teams Ergonomics Technician Relationship Specialty Start Date End Date Jay Howell MD [address] [place] [phone] PCP - General Emergency Medicine 11/12/23 documented as of this encounter
--- OUTSIDE RECORDS SUMMARY | 2025-10-12 21:54 | XMS_ITS | Encounter Summary ---
Author Organization [facility] Address [address] [place] [address] Care Team Providers Care Water Softener Service Supervisor Name Role Phone Unavailable Primary Care Provider Unavailabl e Reason for Visit * Reason Onset Date Comments HCN Clinical Concern/Question 10/07/2025 Encounter Details Date Type Department Care Team (Late st Contact Info) Description 10/07/2025 Telephone [facility] [address] [facility] 5th Floor [address] [place] [address] System, Provider Not In, [address] [place] [address] HCN Clinical Concern/Question Social History Tobacco Use Types Packs/Day Years [...] drink first t kathleen in the morning (EYE-SKI MOLDER) to steady your nerves or to get rid of a hangover? 0 03/20/2024 CAGE Questionnaire Score 0 024 Utilities Answer Date Recorded In the past 12 months has th e [employer], gas, oil, or water company threatened to [...] encounter Miscellaneous Notes * Telephone Encounter - GatitoCamryn Sophie - 10/07/2025 2:25 PM EST Clinical Concern/Question Reason for Call: Pt's son Edgar called back to schedule. Thanks! Best contact number: [phone] (mobile) Optimal time of day to reach caller: ANYTIME Additional comments/information from caller: None Note: Please do not reply to this message. Follow-up communication and further actions as a result of this message need to be communicated with the patient directly, if the patient is not active onMyChart. If the patient is active on MyChart, they will receive notification of the communication/outcome via [employer]. documented in this encounter Plan of Treatment Upcoming Encounters Date Type Department Care Team (Late st Contact Info) Description 10/24/2025 1:30 PM EST Appointment [facility] [address], [address] [place] [address] 10/24/2025 2:20 PM EST Office Visit [facility] [address] [facility] 5th Floor [address] [place] [address] Zaida Nichols MD [address] [facility] [address] [place] [address] documented as of this encounter Visit Diagnoses Not on filedocumented in this encounter Additional Health Concerns Assessment Noted Time A fall risk assessment has been complete d for the patient 10/31/2024 9:56 AM EST A Body Mass Index follow-up plan has been documented for the patient 10/31/2024 10:09 AM EST documented as of this encounter
--- OUTSIDE RECORDS SUMMARY | 2025-10-12 21:54 | XMS_ITS | Encounter Summary ---
Author Organization [employer] ([place], [place], [place], [place], [place]) Address [address] [place] [address] Care Team Providers Care Funnel Coater Name Role Phone Jay Howell MD Primary Care Provider [phone] Encounter Details Date Type Department Care Team (Late st Contact Info) Description 03/19/2021 Transcribed Document [facility] [place] Family Medicine [address] [place] [address] ProviderJessie MD [address] [place], [place] [address] Social History Tobacco Use Types Packs/Day Years Used Date Smoking Tobacco: Never Assessed Comments Unknown Sex and Gender Information Value Date Recorded Sex Assigned at Not on file Legal Sex Female 7:30 PM CDT Gender Identity Not on file Sexual Orientation Not on file documented as of this encounter Miscellaneous Notes * Cerner Conversion Note - Jessie ProviderMD - 03/19/2021 2:48 PM CDT Nursing [...] on filedocumented in this encounter Care Teams Funnel Coater Relationship Specialty Start Date End Date Jay Howell MD [address] [place] [phone] PCP - General Emergency Medicine 11/12/23 documented as of this encounter
--- OUTSIDE RECORDS SUMMARY | 2025-10-12 21:54 | XMS_ITS | Encounter Summary ---
Author Organization [employer] ([place], [place], [place], [place], [place]) Address [address] [place] [address] Care Team Providers Care Educational Advisor Name Role Phone Jay Howell MD Primary Care Provider [phone] Encounter Details Date Type Department Care Team (Late st Contact Info) Description 03/16/2021 Transcribed Document [facility] [place] Family Medicine [address] [place] [address] ProviderJessie MD [address] [place], [place] [address] Social History Tobacco Use Types Packs/Day Years Used Date Smoking Tobacco: Never Assessed Comments Unknown Sex and Gender Information Value Date Recorded Sex Assigned at Not on file Legal Sex Female 7:30 PM CDT Gender Identity Not on file Sexual Orientation Not on file documented as of this encounter Miscellaneous Notes * Cerner Conversion Note - Jessie ProviderMD - 03/16/2021 11:24 AM CDT [place] Suicide Severity Rating Scale (C-SSRS) Entered On: 03/16/2021 12:59 EDT Performed On: 03/16/2021 12:57 EDT by Viri Gonsales RN [place] Suicide Severity Rating Scale (C-SSRS) CSSRS Past [...] on filedocumented in this encounter Care Teams Educational Advisor Relationship Specialty Start Date End Date Jay Howell MD [address] [place] [phone] PCP - General Emergency Medicine 11/12/23 documented as of this encounter
--- OUTSIDE RECORDS SUMMARY | 2025-10-12 21:54 | XMS_ITS | Encounter Summary ---
Author Organization [employer] ([place], [place], [place], [place], [place]) Address [address] [place] [address] Care Team Providers Care Hotel Reservation Agent Name Role Phone Jay Howell MD Primary Care Provider [phone] Encounter Details Date Type Department Care Team (Late st Contact Info) Description 12/12/2018 Transcribed Document [facility] Family Medicine [address] [place] [address] ProviderJessie MD [address] [place] [address] [phone] Social History Tobacco Use Types Packs/Day Years Used Date Smoking Tobacco: Never Assessed Comments Unknown Sex and Gender Information Value Date Recorded Sex Assigned at Not on file Legal Sex Female 7:30 PM CDT Gender Identity Not on file Sexual Orientation Not on file documented as of this encounter Miscellaneous Notes * Cerner Conversion Note - Jessie ProviderMD - 12/12/2018 8:58 PM PBX INSTALLER ED Triage Entered On: 12/12/2018 21:20 EST Performed On: 12/12/2018 21:18 EST by LUCINDA FOFANA RN ED Triage Across the Room Triage Date/Time : 12/12/2018 21:18 EST Chief Complaint : pt c/o mscp x 2 hours rad to neck & L arm. reports seen bt card in [place] for same earlier this week, reports she needs a cath LUCINDA FOFANA RN - 12/12/2018 21:18 EST DCP GENERIC CODE Tracking Acuity : 2 - Emergent Tracking Group : [facility] ED LUCINDA FOFANA RN [...] 21:20:38 EST) Problems(Active) Apnea, sleep (SNOMED CT :193755319 ) Name of Problem: Apnea, sleep ; Recorder: JUAN LUIS GIL RN; Confirmation: Confirmed ; Classification: Medical ; Code: [id number] ; Contributor System: PowerChart ; Last Updated: 11/12/2014 10:12 EST ; Life Cycle Date: 11/12/2014 ; Life Cycle Status: Active ; Vocabulary: SNOMED CT Arthritis (SNOMED CT :9230021 ) Name of Problem: Arthritis ; Recorder: KENYON CHAMBERS RN; Confirmation: Confirmed ; Classification: Medical ; Code: 7240768 ; Contributor System: PowerChart ; Last Updated: 04/10/2016 8:04 EDT ; Life Cycle Date: 08/13/2013 ; Life Cycle Status: Active ; Vocabulary: SNOMED CT Atrial fibrillation with RVR (SNOMED CT :1407558162 ) Name of Problem: Atrial fibrillation with RVR ; Recorder: SANG RICO APR; Confirmation: Confirmed ; Classification: Medical ; Code: [id number] ; Contributor System: PowerChart ; Last Updated: 04/10/2016 8:05 EDT ; Life Cycle Date: 04/10/2016 ; Life Cycle Status: Active ; Responsible Provider: SANG RICO APR; Vocabulary: SNOMED CT Blood clot (SNOMED CT :503590573 ) Name of Problem: Blood clot ; Recorder: KENYON CHAMBERS RN; Confirmation: Confirmed ; Classification: Patient Stated ; Code: 493059270 ; Contributor System: PowerChart ; Last Updated: [...] Vocabulary: Patient Care Chest pain (SNOMED CT :96338777 ) Name of Problem: Chest pain ; Recorder: SANG RICO APR; Confirmation: Complaint of ; Classification: Medical ; Code: 21919020 ; Contributor System: PowerChart ; Last Updated: 04/10/2016 8:05 EDT ; Life Cycle Status: Active ; Responsible Provider: SANG RICO APR; Vocabulary: SNOMED CT Chronic anticoagulation (SNOMED CT :920778186 ) Name of Problem: Chronic anticoagulation ; Recorder: SANG RICO APR; Confirmation: Confirmed ; Classification: Medical ; Code: 064232703 ; Contributor System: PowerChart ; Last Updated: 04/10/2016 8:05 EDT ; Life Cycle Date: 04/10/2016 ; Life Cycle Status: Active ; Responsible Provider: SANG RICO APR; Vocabulary: SNOMED CT Clotting disorder (SNOMED CT :324280921 ) Name of Problem: Clotting disorder ; Recorder: KENYON CHAMBERS RN; Confirmation: Confirmed ; Classification: Patient Stated ; Code: 600501444 ; Contributor System: PowerChart ; Last Updated: 03/28/2014 19:29 EDT ; Life Cycle Date: 08/13/2013 ; Life Cycle Status: Active ; Vocabulary: SNOMED CT COPD (SNOMED CT :26863291 ) Name of Problem: COPD ; Recorder: KENYON CHAMBERS RN; Confirmation: Confirmed ; Classification: Medical ; Code: 86795528 ; Contributor System: PowerChart ; Last Updated: 04/10/2016 8:03 EDT ; Life Cycle Date: 08/13/2013 ; Life Cycle Status: Active ; Vocabulary: SNOMED CT Coronary artery disease (SNOMED CT :7242443001 ) Name of Problem: Coronary artery disease ; Recorder: KENYON CHAMBERS RN; Confirmation: Confirmed ; Classification: Medical ; Code: 3805812890 ; Contributor System: PowerChart ; Last Updated: 04/10/2016 8:03 EDT ; Life Cycle Date: 08/13/2013 ; Life Cycle Status: Active ; Vocabulary: SNOMED CT Diabetes mellitus (SNOMED CT :891856265 ) Name of Problem: Diabetes mellitus ; Recorder: KENYON CHAMBERS RN; Confirmation: Confirmed ; Classification: Medical ; Code: 293927384 ; Contributor System: PowerChart ; Last Updated: 04/10/2016 8:04 EDT ; Life Cycle Date: 08/13/2013 ; Life Cycle Status: Active ; Vocabulary: SNOMED CT Emphysema (SNOMED CT :762941955 ) Name of Problem: Emphysema ; Recorder: JUAN LUIS GIL RN; Confirmation: Confirmed ; Classification: Medical ; Code: 194482696 ; Contributor System: OodriveChart ; Last Updated: 11/12/2014 10:11 EST ; Life Cycle Date: 11/12/2014 ; Life Cycle Status: Active ; Vocabulary: SNOMED CT GERD - Gastro-esophageal reflux disease (SNOMED CT :8823541211 ) Name of Problem: GERD - Gastro-esophageal reflux disease ; Recorder: KENYON CHAMBERS RN; Confirmation: Confirmed ; Classification: Medical ; Code: 2594955400 ; Contributor System: PowerChart ; Last Updated: [...] Patient Care High blood pressure (SNOMED CT :51856067 ) Name of Problem: High blood pressure ; Recorder: KENYON CHAMBERS RN; Confirmation: Confirmed ; Classification: Medical ; Code: 36127386 ; Contributor System: OodriveChart ; Last Updated: 04/10/2016 8:03 EDT ; Life Cycle Date: 08/13/2013 ; Life Cycle Status: Active ; Vocabulary: SNOMED CT Hx of pulmonary embolus (SNOMED CT :323098267 ) Name of Problem: Hx of pulmonary embolus ; Recorder: SANG RICO APR; Confirmation: Confirmed ; Classification: Medical ; Code: 930065445 ; Contributor System: PowerChart ; Last Updated: 04/10/2016 8:05 EDT ; Life Cycle Date: 04/10/2016 ; Life Cycle Status: Active ; Responsible Provider: SANG RICO APR; Vocabulary: SNOMED CT Hyperlipidemia (SNOMED CT :21045410 ) Name of Problem: Hyperlipidemia ; Recorder: KENYON CHAMBERS RN; Confirmation: Confirmed ; Classification: Medical ; Code: 64135355 ; Contributor System: PowerChart ; Last Updated: 04/10/2016 8:03 EDT ; Life Cycle Date: 08/13/2013 ; Life Cycle Status: Active ; Vocabulary: SNOMED CT Multiple renal cysts (SNOMED CT :449792836 ) Name of Problem: Multiple renal cysts ; Recorder: KENYON CHAMBERS RN; Confirmation: Confirmed ; Classification: Medical ; Code: 361522994 ; Contributor System: OodriveChart ; Last Updated: 04/10/2016 8:04 EDT ; Life Cycle Date: 08/13/2013 ; Life Cycle Status: Active ; Vocabulary: SNOMED CT Stented coronary artery (SNOMED CT :0052277175 ) Name of Problem: Stented coronary artery ; Recorder: KENYON CHAMBERS RN; Confirmation: Confirmed ; Classification: Medical ; Code: 6608525727 ; Contributor System: OodriveChart ; Last Updated: 04/10/2016 8:03 EDT ; Life Cycle Date: 08/13/2013 ; Life Cycle Status: Active ; Vocabulary: SNOMED CT UTI - Urinary tract infection (SNOMED CT :2099529232 ) Name of Problem: UTI - Urinary tract infection ; Recorder: KENYON CHAMBERS RN; Confirmation: Confirmed ; Classification: Medical ; Code: 7297674770 ; Contributor System: [employer] Innov[employer] ; Last Updated: 04/10/2016 8:04 EDT ; Life Cycle Date: 08/13/2013 ; Life Cycle Status: Active ; Vocabulary: SNOMED CT Diagnoses(Active) Chest pain Date: 12/12/2018 ; Diagnosis Type: Reason For Visit ; Confirmation: Complaint of ; Clinical Dx: Chest pain ; Classification: Medical ; Clinical Service: Emergency medicine ; Code: PNED ; Probability: 0 ; Diagnosis Code: [id number] ED Height and Weight Height Source : Stated Height Entry Format : [place] Height, Feet : 5 ft(Converted to: 152 cm, 60 Inch) Height, Inches : 3 Inch(Converted to: 0 ft 3 Inch, 7.62 cm) Clinical Height : 160.02 cm Weight Source, ED : Standing scale Weight Entry Format : [place] Weight, Pounds : 161.7 lb Clinical Dosing Weight : 73.5 kg Body Surface Area (BSA) : 1.77 m2 Body Mass Index : 28.7 kg/m2 (HI) [place] Body Weight (IBW) : 52.02 kg LUCINDA FOFANA RN - 12/12/2018 21:18 EST documented in this encounter Plan of Treatment Not on file documented as of this encounter Visit Diagnoses Not on filedocumented in this encounter Care Teams Hotel Reservation Agent Relationship Specialty Start Date End Date Jay Howell MD [address] [place] [phone] PCP - General Emergency Medicine 11/12/23 documented as of this encounter
--- OUTSIDE RECORDS SUMMARY | 2025-10-12 21:54 | XMS_ITS | Encounter Summary ---
Author Organization [facility] Address [address] [place] [address] Care Team Providers Care Health And Wellness Sales Consultant Name Role Phone Jay Howell MD Primary Care Provider [phone] Encounter Details Date Type Department Care Team (Latest Contact Info) Description 09/30/2025 Travel Social History Tobacco Use Types Packs/Day Years Used Date Smoking Tobacco: Former Cigarettes 36 1 956 - 1992 Passive Smoke Exposure: Past Smokeless [...] drink first t kathleen in the morning (EYE-REMOTE MORTGAGE UNDERWRITER) to steady your nerves or to get rid of a hangover? 0 03/20/2024 CAGE Questionnaire Score 0 024 Utilities Answer Date Recorded In the past 12 months has th e [employer], gas, oil, or water company threatened to shut off services in your home? No 08/06/2024 Comments No Sex and Gender Information Value Date Recorded Sex Assigned at Female 03/08/2024 4:53 AM EDT Legal Sex Female 8:23 PM EDT Gender Identity Female 03/08/2024 4:53 AM EDT Sexual Orientation Straight 03/08/2024 4: 53 AM EDT documented as of this encounter Functional Status * Communicable Disease Screening Question Answer Date of Assessment Author Have you been in contact with someone who was sick? No / Unsure 09/30/2025 5:44 PM Jarrod Bob RN Do you have any of the following new or worsening symptoms? None of these 09/30/2025 5:44 PM Noy Bob RN * Travel Screening Question Answer Date of Assessment Author Have you traveled [place] or domestically in the last month? No 09/30/2025 5:44 PM Noy Bruner RN documented as of this encounter Mental Status * Communicable Disease Screening Question Answer Entry Date Author Have you been in contact with someone who was sick? No / Unsure 09/30/2025 5:44 PM Jarrod Bob RN Do you have any of the following new or worsening symptoms? None of these 09/30/2025 5:44 PM Noy Bob RN * Travel Screening Question Answer Entry Date Author Have you traveled [place] or domestically in the last month? No 09/30/2025 5:44 PM Noy Bruner RN documented in this encounter Plan of Treatment Upcoming Encounters Date Type Department Care Team (Late st Contact Info) Description 10/24/2025 1:30 PM EST Appointment [facility] Vascular Lab [address] [place] [address] 10/24/2025 2:20 PM EST Office Visit [facility] [address] [place] [address] Zaida Nichols MD [address] [id number] [place] [address] documented as of this encounter Visit Diagnoses Not on filedocumented in this encounter Additional Health Concerns Assessment Noted Time A fall risk assessment has been complete d for the patient 10/31/2024 9:56 AM EST A Body Mass Index follow-up plan has been documented for the patient 10/31/2024 10:09 AM EST documented as of this encounter Care Teams Health And Wellness Sales Consultant Relationship Specialty Start Date End Date Jay Howell MD [address] [place], [place] [address] PCP - General 03/08/21 10/06/25 documented as of this encounter
--- OUTSIDE RECORDS SUMMARY | 2025-10-12 21:54 | XMS_ITS | Encounter Summary ---
Author Organization [employer] ([place], [place], [place], [place], [place]) Address [address] [place] [address] Care Team Providers Care Desktop Publishing Operator Name Role Phone Jay Howell MD Primary Care Provider [phone] Encounter Details Date Type Department Care Team (Late st Contact Info) Description 03/19/2021 Transcribed Document [facility] [place] [address] [place] [address] ProviderJessie MD [address] [place] [id number] Social History Tobacco Use Types Packs/Day Years [...] 2. 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 3. Extensive vascular calcification. 4. Severe [...] up with hand surgery next week, her digester in 2-4 weeks and neurologist 4-8 weeks. [...] Comer or Anabell on March 23 or [facility] - Within 6 weeks Discharge Medications (14) [...] Physicians EMA BUSTILLOS MD-NEU (Neurology) - syncope BHARTI CLARKE MD-NEU Dr [facility] Current Diet Order Diet, Adult - Ordered -- Start: 03/17/21 10:56:00 EDT, Cardiac Diet, 60 gm carbs:[id number] george, Isolation: Standard Precautions, Instructions: Diabetic Diet Patient Discharge Summary Orders Discharge Follow Up Instructions: Follow Up Instructions: f/u Dr. Comer or Anabell ( Hand Surgery) on d/c. [phone] Activity: Discharge Activity: Activity as tolerated Diet: [...] on filedocumented in this encounter Care Teams Desktop Publishing Operator Relationship Specialty Start Date End Date Jay Howell MD [address] [place] [phone] PCP - General Emergency Medicine 11/12/23 documented as of this encounter
--- OUTSIDE RECORDS SUMMARY | 2025-10-12 21:54 | XMS_ITS | Encounter Summary ---
Author Organization [employer] ([place], [place], [place], [place], [place]) Address [address] [place] [address] Care Team Providers Care Internal Medicine Specialist Name Role Phone Jay Howell MD Primary Care Provider [phone] Encounter Details Date Type Department Care Team (Late st Contact Info) Description 12/12/2018 Transcribed Document [facility] [place] [address] [place] [address] ProviderJessie MD [address] [place] [address] Social History Tobacco Use Types Packs/Day Years Used Date Smoking Tobacco: Never Assessed Comments Unknown Sex and Gender Information Value Date Recorded Sex Assigned at Not on file Legal Sex Female 7:30 PM CDT Gender Identity Not on file Sexual Orientation Not on file documented as of this encounter Miscellaneous Notes * Cerner Conversion Note - Jessie Yuen MD - 12/12/2018 10:41 PM MANAGER PROGRAM [address] [place], [place] [id number] Patient Information Name: SKYLER MONTOYA Age: 77 [...] please contact the Patient Resource Center at [phone]. With: Address: When: Follow-up with your deck engine operator in the morning. Return to the closest emergency department for any acute new concerns or recurrence of symptoms. Within in AM With: Address: When: TARA CHEN [address] [place] [address] [address] [place], [place] [address] [facility] (1) Within 2 to 3 days [...] physical activity. It especially occurs in the morning news anchor hours. What are the causes? Atherosclerosis is [...] 10/03/2006 Document Revised: 03/16/2017 Document Reviewed: 02/04/2015 [employer] Interactive Patient Education ? 2017 [employer] Allergies: Macrodantin; morphine; nitrofurantoin Medication Information: [...] range between ( 0.0 and 7.0 ) [place] #: 0.65 K/uL -- Normal range between ( 0.16 and 1.00 ) Eos #: 0.00 x10(3)/uL -- Normal range between ( 0.00 and 0.80 ) [place] %: 10.7 % -- Normal range between [...] verify that SKYLER MONTOYA was seen at [facility] on ,12/12/2018 22:41:24. This is [...] along the way. As a healthcare provider, [facility] recommends that you stop smoking. Assistance with quitting is available by contacting 5-708-YTVW-NOW. This is a free resource providing counseling, [...] Electronic Communications Privacy Act 18 U.S.C. ???Sections 2307-1398,?? and contain information intended for the specified [...] computer, smartphone, or tablet. Just go to [employer] to get started. Questions? Call . Acknowledgment [...] Instructions: Emergency Physician: Electronically signed by Sivan, [facility] Conversion Compressor Station Chief Engineer Cerner at 02/04/2023 1:56 PM CDT documented in this encounter Plan of Treatment Not on file documented as of this encounter Visit Diagnoses Not on filedocumented in this encounter Care Teams Internal Medicine Specialist Relationship Specialty Start Date End Date Jay Howell MD [address] [place] [phone] PCP - General Emergency Medicine 11/12/23 documented as of this encounter
--- OUTSIDE RECORDS SUMMARY | 2025-10-12 21:54 | XMS_ITS | Encounter Summary ---
Author Organization [employer] ([place], [place], [place], [place], [place]) Address [address] [place] [address] Care Team Providers Care Program Facilitator Name Role Phone Jay Howell MD Primary Care Provider [phone] Encounter Details Date Type Department Care Team (Late st Contact Info) Description 12/12/2018 Transcribed Document [facility] Family Medicine [address] [place] [address] ProviderJessie MD [address] [place] [address] Social History Tobacco Use Types Packs/Day Years Used Date Smoking Tobacco: Never Assessed Comments Unknown Sex and Gender Information Value Date Recorded Sex Assigned at Not on file Legal Sex Female 7:30 PM CDT Gender Identity Not on file Sexual Orientation Not on file documented as of this encounter Miscellaneous Notes * Cerner Conversion Note - Jessie Yuen MD - 12/12/2018 8:58 PM BODY SHOP FLOORPERSON ED Assessment Entered On: 12/12/2018 21:53 EST [...] Communication Barrier : None Primary Language : Sudanese Additional Emergency Contact #1 : Johnny Montoya Additional Contact #1 Phone Number : [phone] Additional Contact #1 Relationship : spouse Any [...] Rhythm : Regular Nail Bed Color : [place] Chest Pain : Yes Neck Vein Distention [...] - 12/12/2018 21:49 EST Electronically signed by [facility], [facility] Conversion Airline Transport Pilot Cerner at 02/04/2023 2:13 PM CDT documented in this encounter Plan of Treatment Not on file documented as of this encounter Visit Diagnoses Not on filedocumented in this encounter Care Teams Program Facilitator Relationship Specialty Start Date End Date Jay Howell MD [address] [place] [phone] PCP - General Emergency Medicine 11/12/23 documented as of this encounter
--- OUTSIDE RECORDS SUMMARY | 2025-10-12 21:54 | XMS_ITS | Encounter Summary ---
Author Organization [employer] ([place], [place], [place], [place], [place]) Address [address] [place] [address] Care Team Providers Care Hangar Attendant Name Role Phone Jay Howell MD Primary Care Provider [phone] Encounter Details Date Type Department Care Team (Late st Contact Info) Description 12/12/2018 Transcribed Document [facility] [place] [address] [place] [address] ProviderJessie MD [address] [place] [address] Social History Tobacco Use Types Packs/Day Years Used Date Smoking Tobacco: Never Assessed Comments Unknown Sex and Gender Information Value Date Recorded Sex Assigned at Not on file Legal Sex Female 7:30 PM CDT Gender Identity Not on file Sexual Orientation Not on file documented as of this encounter Miscellaneous Notes * Cerner Conversion Note - Jessie ProviderMD - 12/12/2018 10:41 PM SAMPLE PREPARATION SUPERVISOR [address] [place] [phone] PERSON INFORMATION Name REGI MONTOYAY Hillary Age 77 Years 1940 Sex Female Language Bahraini PCP TARA CHEN (REF), -MED Marital Status Med Service Emergency Medicine Acct# Arrival 12/12/2018 20:58:00 Visit Reason Chest pain; CHEST PAIN FOR LAST 2HRS Acuity 2 - Emergent LOS 000 01:43 Depart Date: 12/12/18 10:41 PM Address: [place] [address] Comment: PROVIDER INFORMATION Provider Role Assigned Unassigned [...] please contact the Patient Resource Center at [phone]. With: Address: When: Follow-up with your executive secretary in the morning. Return to the closest emergency department for any acute new concerns or recurrence of symptoms. Within in AM With: Address: When: TARA CHEN [address] [facility] [place] [address] Business (1) Within 2 to 3 days Comment: Electronically signed by Gayle Finnegan Conversion Farmworker [employer] Wil[employer]er at 02/04/2023 2:11 PM CDT documented in this encounter Plan of Treatment Not on file documented as of this encounter Visit Diagnoses Not on filedocumented in this encounter Care Teams Hangar Attendant Relationship Specialty Start Date End Date Jay Howell MD [address] [place] [phone] PCP - General Emergency Medicine 11/12/23 documented as of this encounter
--- OUTSIDE RECORDS SUMMARY | 2025-10-12 21:54 | XMS_ITS | Encounter Summary ---
Author Organization [employer] ([place], [place], [place], [place], [place]) Address [address] [place] [address] Care Team Providers Care Gas Booster Engineer Name Role Phone Jay Howell MD Primary Care Provider [phone] Encounter Details Date Type Department Care Team (Late st Contact Info) Description 03/16/2021 Transcribed Document [facility] Family Medicine [address] [place] [address] ProviderJessie MD [address] [place], [place] [address] Social History Tobacco Use Types Packs/Day Years Used Date Smoking Tobacco: Never Assessed Comments Unknown Sex and Gender Information Value Date Recorded Sex Assigned at Not on file Legal Sex Female 7:30 PM CDT Gender Identity Not on file Sexual Orientation Not on file documented as of this encounter Miscellaneous Notes * Cerner Conversion Note - Jessie ProviderMD - 03/16/2021 11:24 AM CDT [place] [...] filedocumented in this encounter Care Teams Gas Booster Engineer Relationship Specialty Start Date End Date Jay Howell MD [address] [place] [phone] PCP - General Emergency Medicine 11/12/23 documented as of this encounter
--- OUTSIDE RECORDS SUMMARY | 2025-10-12 21:54 | XMS_ITS | Encounter Summary ---
Author Organization [facility] ([place], [place], [place], [place], [place]) Address [address] [place] [address] Care Team Providers Care Composition Siding Worker Name Role Phone Jay Howell MD Primary Care Provider [phone] Encounter Details Date Type Department Care Team (Late st Contact Info) Description 07/18/2021 Transcribed Document [facility] [place] [address] [place] [address] ProviderJessie MD [address] [place], [place] [address] Social History Tobacco Use Types Packs/Day Years [...] on filedocumented in this encounter Care Teams Composition Siding Worker Relationship Specialty Start Date End Date Jay Howell MD [address] [place] [phone] PCP - General Emergency Medicine 11/12/23 documented as of this encounter
--- OUTSIDE RECORDS SUMMARY | 2025-10-12 21:54 | XMS_ITS | Encounter Summary ---
Author Organization [employer] ([place], [place], [place], [place], [place]) Address [address] [place] [address] Care Team Providers Care Belt Maker Name Role Phone Jay Howell MD Primary Care Provider [phone] Encounter Details Date Type Department Care Team (Late st Contact Info) Description 03/16/2021 Transcribed Document [facility] [place] Family Medicine [address] [place] [address] ProviderJessie MD [address] [place], [place] [address] Social History Tobacco Use Types Packs/Day Years Used Date Smoking Tobacco: Never Assessed Comments Unknown Sex and Gender Information Value Date Recorded Sex Assigned at Not on file Legal Sex Female 7:30 PM CDT Gender Identity Not on file Sexual Orientation Not on file documented as of this encounter Miscellaneous Notes * Cerner Conversion Note - Jessie ProviderMD - 03/16/2021 12:04 PM CDT Patient: [...] EDT - EVA WESLEY RN PCI w/ [place] stent to D1 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 femur repair. Appendectomy (449181661). uterine suspension. Hysterectomy (226698008). back surgury. Cholecystectomy (60427166). Hip replacement ([id number]). cataract surgury.. Family history: Cardiomyopathy Child Stroke [...] EDT Height Source Stated Height Entry Format Snyder Height/Length, [place] (ft) 5 ft Height/Length [place] 3 Inch CLINICALHEIGHT 160.02 cm [place] Body Weight 52.02 kg Weight Source, ED Critical estimated dosing weight Weight Entry Format Snyder Weight Croatian lb 158 lb CLINICALWEIGHT 71.82 kg Body [...] Triage: ED C-SSRS: ED Clinical Reconciliation: ED chemical project engineer: Lactic Acid Level with Reflex if Indicated: Lipase Level: Normal Saline Bolus: 500 mL, 500 mL/Hr, IV Piggyback, 1-Time PT/INR Prothrombin Time: PTT: Saline Lock Insert: Troponin I Ultra: Urinalysis UA Rflx Microscopic Cult if Ind: Zofran: 4 mg, IV Push, 1-Time. bus driver/monitor: Normal sinus rhythm. Electrocardiogram: Time 03/16/2021 11:38:00, rate 59, normal sinus rhythm, No ST changes, no ectopy, normal [place] & QRS intervals, EP Interp. Results review: All Results 03/16/2021 14:09 EDT Urine Type. U CleanCatch Urine Color Yellow Urine Appearance Clear Urine Specific [place] 1.014 Urine pH Dipstick 5.5 LOW Urine [...] 15.6 % LOW Lymph # 1.52 x10(3)/uL [place] % 5.1 % [place] # 0.50 K/uL Eos % 0.0 % Eos # 0.00 x10(3)/uL Baso % 0.3 % Baso # 0.03 x10(3)/uL Slide Review No IG# 0.06 x10(3)/uL HI IG% 0.60 % . Radiology results: Radiology Results (Last 48 hours) [id number] -- 03/16/2021 11:24 CR Hip Uni Comp [...] Care: Telemetry unit, Admitting: MARIA ELENA DAVALOS [facility], Launch Orders Consults: Consult to Physician (Order): Start: 03/16/2021 15:29 EDT, Consult to: SAMANTHA PINA MD-[facility], For right wrist fracture, Manager Relationship Notified by Physician, Group/Instructions: [facility]. Notes: I certify that the MLP/HOSTEL MANAGER performed the services as delegated. . documented in this encounter Plan of Treatment Not on file documented as of this encounter Visit Diagnoses Not on filedocumented in this encounter Care Teams Belt Maker Relationship Specialty Start Date End Date Jay Howell MD [address] [place] [phone] PCP - General Emergency Medicine 11/12/23 documented as of this encounter
--- OUTSIDE RECORDS SUMMARY | 2025-10-12 21:54 | XMS_ITS | Referral Summary ---
Author Organization [email or web address] ([place], [place], [place], [place], [place]) Address [address] [place] [address] Care Team Providers Care Director Of Field Sales Name Role Phone Jay Howell MD [...] Date Kennedy rded Speak language other than Macedonian at home Not on file 10/30/2023 Want [...] on file Insurance MEDICARE PART A B [facility] Advance Directives For more information, please contact: [phone] * Full Code (Latest Code Status on File) Date Activated Date Inactivated Comments 11/25/2022 10:41 AM 11/26/2022 5:33 PM * Full Code Date Activated Date Inactivated Comments 11/25/2022 8:11 AM 11/25/2022 10:41 AM -Attempt Resu scitation if person has no pulse and is not breathing. -If no pulse or not breathing attempt CPR/CODE. -Call Rapid Response if patient is in distress. Care Teams Director Of Field Sales Relationship Specialty Start Date End Date Jay Howell MD [address] [place] [phone] PCP - General Emergency Medicine 11/12/23
--- OUTSIDE RECORDS SUMMARY | 2025-10-12 21:54 | XMS_ITS | Encounter Summary ---
Author Organization [employer] ([place], [place], [place], [place], [place]) Address [address] [place] [address] Care Team Providers Care Plastic Extruding Machine Operator Name Role Phone Jay Howell MD Primary Care Provider [phone] Encounter Details Date Type Department Care Team (Late st Contact Info) Description 03/18/2021 Transcribed Document [facility] [place] Family Medicine [address] [place] [address] ProviderJessie MD [address] [place], [place] [address] Social History Tobacco Use Types Packs/Day [...] Lymph # 1.66 x10(3)/uL 03/18/2021 05:19 EDT [place] % 11.4 % (High) 03/18/2021 05:19 EDT [place] # 0.75 K/uL 03/18/2021 05:19 EDT Eos [...] EDT Electronically signed by Gayle Finnegan Conversion Journeyman Electrician Pv Installer Cerner at 02/04/2023 2:15 PM CDT documented in this encounter Plan of Treatment Not on file documented as of this encounter Visit Diagnoses Not on filedocumented in this encounter Care Teams Plastic Extruding Machine Operator Relationship Specialty Start Date End Date Jay Howell MD [address] [place] [phone] PCP - General Emergency Medicine 11/12/23 documented as of this encounter
--- OUTSIDE RECORDS SUMMARY | 2025-10-12 21:54 | XMS_ITS | Encounter Summary ---
Author Organization [employer] ([place], [place], [place], [place], [place]) Address [address] [place] [address] Care Team Providers Care Academic Services Professional Name Role Phone Jya Howell MD Primary Care Provider [phone] Encounter Details Date Type Department Care Team (Late st Contact Info) Description 03/16/2021 Transcribed Document [facility] [place] [address] [place] [address] ProviderJessie MD [address] [place], [place] [address] Social History Tobacco Use Types Packs/Day Years Used Date Smoking Tobacco: Never Assessed Comments Unknown Sex and Gender Information Value Date Recorded Sex Assigned at Not on file Legal Sex Female 7:30 PM CDT Gender Identity Not on file Sexual Orientation Not on file documented as of this encounter Miscellaneous Notes * Cerner Conversion Note - Jessie ProviderMD - 03/16/2021 2:05 PM CDT CR [...] on filedocumented in this encounter Care Teams Academic Services Professional Relationship Specialty Start Date End Date Jay Howell MD [address] [place] [phone] PCP - General Emergency Medicine 11/12/23 documented as of this encounter
--- OUTSIDE RECORDS SUMMARY | 2025-10-12 21:54 | XMS_ITS | Encounter Summary ---
Author Organization [employer] ([place], [place], [place], [place], [place]) Address [address] [place] [address] Care Team Providers Care Corporate Event Planner Name Role Phone Jay Howell MD Primary Care Provider [phone] Encounter Details Date Type Department Care Team (Late st Contact Info) Description 03/16/[address] [facility] [place] Family [place] [address] [place] [address] ProviderJessie MD [address] [place], [place] [address] Social History Tobacco Use Types Packs/Day Years [...] : 2 - Emergent Tracking Group : [facility] ED NICOLE CHEN RN - 03/16/2021 11:32 [...] 11:35:39 EDT) Problems(Active) Apnea, sleep (SNOMED CT :504036641 ) Name of Problem: Apnea, sleep ; Recorder: JUAN LUIS GIL RN; Confirmation: Confirmed ; Classification: Medical ; Code: 412570361 ; Contributor System: PowerChart ; Last Updated: 11/12/2014 10:12 EST ; Life Cycle Date: 11/12/2014 ; Life Cycle Status: Active ; Vocabulary: SNOMED CT Arthritis (SNOMED CT :9844450 ) Name of Problem: Arthritis ; Recorder: KENYON CHAMBERS RN; Confirmation: Confirmed ; Classification: Medical ; Code: 9316935 ; Contributor System: PowerChart ; Last Updated: 04/10/2016 8:04 EDT ; Life Cycle Date: 08/13/2013 ; Life Cycle Status: Active ; Vocabulary: SNOMED CT Atrial fibrillation with RVR (SNOMED CT :4210816671 ) Name of Problem: Atrial fibrillation with RVR ; Recorder: SANG RICO APRN; Confirmation: Confirmed ; Classification: Medical ; Code: 7529732289 ; Contributor System: PowerChart ; Last Updated: 04/10/2016 8:05 EDT ; Life Cycle Date: 04/10/2016 ; Life Cycle Status: Active ; Responsible Provider: SANG RICO APRN; Vocabulary: SNOMED CT Blood clot (SNOMED CT :484324950 ) Name of Problem: Blood clot ; Recorder: KENYON CHAMBERS RN; Confirmation: Confirmed ; Classification: Patient Stated ; Code: 463610484 ; Contributor System: PowerChart ; Last Updated: [...] Vocabulary: Patient Care Chest pain (SNOMED CT :80169331 ) Name of Problem: Chest pain ; Recorder: SANG RICO APRN; Confirmation: Complaint of ; Classification: Medical ; Code: 44720943 ; Contributor System: PowerChart ; Last Updated: 04/10/2016 8:05 EDT ; Life Cycle Status: Active ; Responsible Provider: SANG RICO APRN; Vocabulary: SNOMED CT Chronic anticoagulation (SNOMED CT :259587041 ) Name of Problem: Chronic anticoagulation ; Recorder: SANG RICO APRN; Confirmation: Confirmed ; Classification: Medical ; Code: 862210821 ; Contributor System: [employer] ; Last Updated: 04/10/2016 8:05 EDT ; Life Cycle Date: 04/10/2016 ; Life Cycle Status: Active ; Responsible Provider: SANG RICO APRN; Vocabulary: SNOMED CT Clotting disorder (SNOMED CT :584389592 ) Name of Problem: Clotting disorder ; Recorder: KENYON CHAMBERS RN; Confirmation: Confirmed ; Classification: Patient Stated ; Code: 157558393 ; Contributor System: PowerChart ; Last Updated: 03/28/2014 19:29 EDT ; Life Cycle Date: 08/13/2013 ; Life Cycle Status: Active ; Vocabulary: SNOMED CT COPD (SNOMED CT :27910875 ) Name of Problem: COPD ; Recorder: KENYON CHAMBERS RN; Confirmation: Confirmed ; Classification: Medical ; Code: 56850059 ; Contributor System: DtimeChart ; Last Updated: 04/10/2016 8:03 EDT ; Life Cycle Date: 08/13/2013 ; Life Cycle Status: Active ; Vocabulary: SNOMED CT Coronary artery disease (SNOMED CT :9955597651 ) Name of Problem: Coronary artery disease ; Recorder: KENYON CHAMBERS RN; Confirmation: Confirmed ; Classification: Medical ; Code: 1064909882 ; Contributor System: DtimeChart ; Last Updated: 04/10/2016 8:03 EDT ; Life Cycle Date: 08/13/2013 ; Life Cycle Status: Active ; Vocabulary: SNOMED CT Diabetes mellitus (SNOMED CT :193768081 ) Name of Problem: Diabetes mellitus ; Recorder: KENYON CHAMBERS RN; Confirmation: Confirmed ; Classification: Medical ; Code: 670707306 ; Contributor System: DtimeChart ; Last Updated: 04/10/2016 8:04 EDT ; Life Cycle Date: 08/13/2013 ; Life Cycle Status: Active ; Vocabulary: SNOMED CT Emphysema (SNOMED CT :671914911 ) Name of Problem: Emphysema ; Recorder: JUAN LUIS GIL RN; Confirmation: Confirmed ; Classification: Medical ; Code: 542461515 ; Contributor System: PowerChart ; Last Updated: 11/12/2014 10:11 EST ; Life Cycle Date: 11/12/2014 ; Life Cycle Status: Active ; Vocabulary: SNOMED CT GERD - Gastro-esophageal reflux disease (SNOMED CT :5960797385 ) Name of Problem: GERD - Gastro-esophageal reflux disease ; Recorder: KENYON CHAMBERS RN; Confirmation: Confirmed ; Classification: Medical ; Code: 5930210294 ; Contributor System: PowerChart ; Last Updated: [...] Patient Care High blood pressure (SNOMED CT :86398839 ) Name of Problem: High blood pressure ; Recorder: KENYON CHAMBERS RN; Confirmation: Confirmed ; Classification: Medical ; Code: 47550222 ; Contributor System: PowerChart ; Last Updated: 04/10/2016 8:03 EDT ; Life Cycle Date: 08/13/2013 ; Life Cycle Status: Active ; Vocabulary: SNOMED CT History of obstructive sleep apnea (IMO :32147989 ) Name of Problem: History of obstructive sleep apnea ; Recorder: SYSTEM, SYSTEM; Confirmation: Confirmed ; Classification: Medical ; Code: 03487076 ; Last Updated: 08/25/2020 18:21 EST ; Life Cycle Date: 08/25/2020 ; Life Cycle Status: Active ; Vocabulary: IMO Hx of pulmonary embolus (SNOMED CT :395138852 ) Name of Problem: Hx of pulmonary embolus ; Recorder: SANG RICO APRN; Confirmation: Confirmed ; Classification: Medical ; Code: 978851484 ; Contributor System: PowerChart ; Last Updated: 04/10/2016 8:05 EDT ; Life Cycle Date: 04/10/2016 ; Life Cycle Status: Active ; Responsible Provider: SANG RICO APRN; Vocabulary: SNOMED CT Hyperlipidemia (SNOMED CT :35632766 ) Name of Problem: Hyperlipidemia ; Recorder: KENYON CHAMBERS RN; Confirmation: Confirmed ; Classification: Medical ; Code: 37555227 ; Contributor System: DtimeChart ; Last Updated: 04/10/2016 8:03 EDT ; Life Cycle Date: 08/13/2013 ; Life Cycle Status: Active ; Vocabulary: SNOMED CT Multiple renal cysts (SNOMED CT :172718773 ) Name of Problem: Multiple renal cysts ; Recorder: KENYON CHAMBERS RN; Confirmation: Confirmed ; Classification: Medical ; Code: 283674174 ; Contributor System: DtimeChart ; Last Updated: 04/10/2016 8:04 EDT ; Life Cycle Date: 08/13/2013 ; Life Cycle Status: Active ; Vocabulary: SNOMED CT Stented coronary artery (SNOMED CT :5270890669 ) Name of Problem: Stented coronary artery ; Recorder: KENYON CHAMBERS RN; Confirmation: Confirmed ; Classification: Medical ; Code: 9986945222 ; Contributor System: DtimeChart ; Last Updated: 04/10/2016 8:03 EDT ; Life Cycle Date: 08/13/2013 ; Life Cycle Status: Active ; Vocabulary: SNOMED CT Diagnoses(Active) Syncope/Near syncope Date: 03/16/2021 ; Diagnosis Type: Reason For Visit ; Confirmation: Complaint of ; Clinical Dx: Syncope/Near syncope ; Classification: Medical ; Clinical Service: Emergency medicine ; Code: PNED ; Probability: 0 ; Diagnosis Code: [id number] ED Height and Weight Height Source : Stated Height Entry Format : [place] Height, Feet : 5 ft(Converted to: 152 cm, 60 Inch) Height, Inches : 3 Inch(Converted to: 0 ft 3 Inch, 7.62 cm) Clinical Height : 160.02 cm Weight Source, ED : Critical estimated dosing weight Weight Entry Format : [place] Weight, Pounds : 158 lb Clinical Dosing Weight : 71.82 kg Body Surface Area (BSA) : 1.75 m2 Body Mass Index : 28 kg/m2 (HI) [place] Body Weight (IBW) : 52.02 kg NICOLE CHEN RN - 03/16/2021 11:32 EDT Electronically signed by Sivan [facility] Conversion Itinerant Teacher Assistant Cerner at 02/04/2023 2:06 PM CDT documented in this encounter Plan of Treatment Not on file documented as of this encounter Visit Diagnoses Not on filedocumented in this encounter Care Teams Corporate Event Planner Relationship Specialty Start Date End Date Jay Howell MD [address] [place] [phone] PCP - General Emergency Medicine 11/12/23 documented as of this encounter
--- OUTSIDE RECORDS SUMMARY | 2025-10-12 21:54 | XMS_ITS | Encounter Summary ---
Author Organization [employer] ([place], [place], [place], [place], [place]) Address [address] [place] [address] Care Team Providers Care Hired Worker Name Role Phone Jay Howell MD Primary Care Provider [phone] Encounter Details Date Type Department Care Team (Late st Contact Info) Description 12/12/2018 Transcribed Document [facility] [place] Family Medicine [address] [place] [address] ProviderJessie MD [address] [place] [phone] Social History Tobacco Use Types Packs/Day Years Used Date Smoking Tobacco: Never Assessed Comments Unknown Sex and Gender Information Value Date Recorded Sex Assigned at Not on file Legal Sex Female 7:30 PM CDT Gender Identity Not on file Sexual Orientation Not on file documented as of this encounter Miscellaneous Notes * Cerner Conversion Note - Jessie Yuen MD - 12/12/2018 10:39 PM RAIL OPERATIONS CONTROLLER ED Discharge Entered On: 12/12/2018 22:40 EST [...] : Form signed Provider Notified Name : AGNIE TEIXEIRA MD Provider Notified Time : 12/12/2018 22:40 EST Dasha Flores, RN - 12/12/2018 22:39 EST Electronically signed by [facility], [facility] Conversion Life Teacher Cerner at 02/04/2023 2:15 PM CDT documented in this encounter Plan of Treatment Not on file documented as of this encounter Visit Diagnoses Not on filedocumented in this encounter Care Teams Hired Worker Relationship Specialty Start Date End Date Jay Howell MD [address] [place] [phone] PCP - General Emergency Medicine 11/12/23 documented as of this encounter
--- OUTSIDE RECORDS SUMMARY | 2025-10-12 21:54 | XMS_ITS | Encounter Summary ---
Author Organization [employer] ([place], [place], [place], [place], [place]) Address [address] [place] [address] Care Team Providers Care Transformer Tester Name Role Phone Jay Howell MD Primary Care Provider [phone] Encounter Details Date Type Department Care Team (Late st Contact Info) Description 03/19/2021 Transcribed Document [facility] [place] [address] [place] [address] ProviderJessie MD [address] [place], [place] [address] Social History Tobacco Use Types Packs/Day Years [...] - 03/19/2021 14:23 EDT Electronically signed by Sivan [facility] Conversion Sea Kayaking Guide Cerner at 02/04/2023 2:10 PM CDT documented in this encounter Plan of Treatment Not on file documented as of this encounter Visit Diagnoses Not on filedocumented in this encounter Care Teams Transformer Tester Relationship Specialty Start Date End Date Jay Howell MD [address] [place] [phone] PCP - General Emergency Medicine 11/12/23 documented as of this encounter
--- OUTSIDE RECORDS SUMMARY | 2025-10-12 21:54 | XMS_ITS | Encounter Summary ---
Author Organization [employer] ([place], [place], [place], [place], [place]) Address [address] [place] [address] Care Team Providers Care Axminster Weaver Name Role Phone Jay Howell MD Primary Care Provider [phone] Encounter Details Date Type Department Care Team (Late st Contact Info) Description 03/16/2021 Transcribed Document [facility] [place] [address] [place] [address] ProviderJessie MD [address] [place], [place] [address] Social History Tobacco Use Types Packs/Day Years [...] Date End Date Jay Howell MD [address] [place] [phone] PCP - General Emergency Medicine 11/12/23 documented as of this encounter
--- OUTSIDE RECORDS SUMMARY | 2025-10-12 21:54 | XMS_ITS | Encounter Summary ---
Author Organization [employer] ([place], [place], [place], [place], [place]) Address [address] [place] [address] Care Team Providers Care Supervisor Gear Repair Name Role Phone Jay Howell MD Primary Care Provider [phone] Encounter Details Date Type Department Care Team (Late st Contact Info) Description 12/12/2018 Transcribed Document [facility] [place] [address] [place] [address] ProviderJessie MD [address] [place] [phone] Social History Tobacco Use Types Packs/Day Years Used Date Smoking Tobacco: Never Assessed Comments Unknown Sex and Gender Information Value Date Recorded Sex Assigned at Not on file Legal Sex Female 7:30 PM CDT Gender Identity Not on file Sexual Orientation Not on file documented as of this encounter Miscellaneous Notes * Cerner Conversion Note - Jessie Yuen MD - 12/12/2018 9:44 PM ACTIVITIES AIDE Patient: SKYLER MONTOYA Age: 77 years Sex: [...] L arm. reports seen bt card in [place] for same earlier this week, reports she [...] and was advised to follow-up with her acquisition consultant. She had labs done this morning, but [...] wants to go home and see her acquisition consultant tomorrow. Review of Systems Additional review of [...] normal sinus rhythm, No ST changes, normal [place] & QRS intervals, EP Interp. Results review: [...] % 36.4 % Lymph # 2.22 x10(3)/uL [place] % 10.7 % HI [place] # 0.65 K/uL Eos % 0.0 % [...] evaluation at any time. Advised follow-up with acquisition consultant in the morning and return to the closest ER for any recurrence or worsening of symptoms.. Impression and Plan Diagnosis Chest pain - Discharge, Medical Plan Condition: Stable. Patient was given the following educational materials: Angina Pectoris. Follow up with: [facility] Within 2 to 3 days; Follow-up with your acquisition consultant in the morning. Return to the closest emergency department for any acute new concerns or recurrence of symptoms. Within in AM. Counseled: Patient, Family, Regarding diagnosis, Regarding diagnostic results, Regarding treatment plan, Patient indicated understanding of instructions. documented in this encounter Plan of Treatment Not on file documented as of this encounter Visit Diagnoses Not on filedocumented in this encounter Care Teams Supervisor Gear Repair Relationship Specialty Start Date End Date Jay Howell MD [address] [place] [phone] PCP - General Emergency Medicine 11/12/23 documented as of this encounter
--- OUTSIDE RECORDS SUMMARY | 2025-10-12 21:54 | XMS_ITS | Encounter Summary ---
Author Organization [employer] ([place], [place], [place], [place], [place]) Address [address] [place] [address] Care Team Providers Care Instructor Bus Trolley And Taxi Name Role Phone Jay Howell MD Primary Care Provider [phone] Encounter Details Date Type Department Care Team (Late st Contact Info) Description 09/01/2020 Transcribed Document [facility] [place] [address] [place] [address] ProviderJessie MD [address] [place] [phone] Social History Tobacco Use Types Packs/Day Years Used Date Smoking Tobacco: Never Assessed Comments Unknown Sex and Gender Information Value Date Recorded Sex Assigned at Not on file Legal Sex Female 7:30 PM CDT Gender Identity Not on file Sexual Orientation Not on file documented as of this encounter Miscellaneous Notes * Cerner Conversion Note - Historical ProviderMD - 09/01/2020 2:22 PM BEAM DYER OPERATOR Stroke/Warfarin Instructions Entered On: 09/01/2020 14:22 EST Performed On: 09/01/2020 14:22 EST by Kailee Velasquez RN Stroke/Warfarin Instructions Stroke/TIA Discharge Ins : N/A Warfarin Discharge Ins : N/A Kailee Velasquez RN - 09/01/2020 14:22 EST documented in this encounter Plan of Treatment Not on file documented as of this encounter Visit Diagnoses Not on filedocumented in this encounter Care Teams Instructor Bus Trolley And Taxi Relationship Specialty Start Date End Date Jay Howell MD [address] [place] [phone] PCP - General Emergency Medicine 11/12/23 documented as of this encounter
--- OUTSIDE RECORDS SUMMARY | 2025-10-12 21:55 | XMS_ITS | Encounter Summary ---
Author Organization [employer] ([place], [place], [place], [place], [place]) Address [address] [place] [address] Care Team Providers Care Nursing Project Coordinator Name Role Phone Jay Howell MD Primary Care Provider [phone] Encounter Details Date Type Department Care Team (Late st Contact Info) Description 06/12/2020 Transcribed Document [facility] [place] [address] [place] [address] ProviderJessie MD [address] [place] [phone] Social History Tobacco Use Types Packs/Day Years [...] Communication Barrier : None Primary Language : Cuban Any Spiritual/Cultural Needs or Requests : No [...] on filedocumented in this encounter Care Teams Nursing Project Coordinator Relationship Specialty Start Date End Date Jay Howell MD [address] [place] [phone] PCP - General Emergency Medicine 11/12/23 documented as of this encounter
--- OUTSIDE RECORDS SUMMARY | 2025-10-12 21:55 | XMS_ITS | Encounter Summary ---
Author Organization [employer] ([place], [place], [place], [place], [place]) Address [address] [place] [address] Care Team Providers Care Medical Equipment Sales Name Role Phone Jay Howell MD Primary Care Provider [phone] Encounter Details Date Type Department Care Team (Late st Contact Info) Description 06/13/2020 Transcribed Document [facility] [place] Family Medicine [address] [place] [address] ProviderJessie MD [address] [place] [address] Social History Tobacco Use Types Packs/Day Years Used Date Smoking Tobacco: Never Assessed Comments Unknown Sex and Gender Information Value Date Recorded Sex Assigned at Not on file Legal Sex Female 7:30 PM CDT Gender Identity Not on file Sexual Orientation Not on file documented as of this encounter Miscellaneous Notes * Cerner Conversion Note - Jessie Yuen MD - 06/13/2020 9:06 AM CDT UM Authorization Entered On: 06/13/2020 9:06 EDT Performed On: 06/13/2020 9:06 EDT by MARILYNN RAMÍREZ, RN-Utilization Review Primary Insurance Authorization Authorization and Policy Numbers : Insurance 1 Health Plan: MEDICARE Policy Number: [id number] Authorization Number: Insurance 2 Health Plan: AARP N Policy Number: [id number] Authorization Number: Insurance Primary Name : MEDICARE Policy Number: [id number] Authorized Service Begin Date-Primary : 06/12/2020 EDT Historical Authorization Comments-Primary : No Authorization Comments Found MARILYNN RAMÍREZ, RN-Utilization Review - 06/13/2020 9:06 EDT documented in this encounter Plan of Treatment Not on file documented as of this encounter Visit Diagnoses Not on filedocumented in this encounter Care Teams Medical Equipment Sales Relationship Specialty Start Date End Date Jay Howell MD [address] [place] [phone] PCP - General Emergency Medicine 11/12/23 documented as of this encounter
--- OUTSIDE RECORDS SUMMARY | 2025-10-12 21:55 | XMS_ITS | Encounter Summary ---
Author Organization [employer] ([place], [place], [place], [place], [place]) Address [address] [place] [address] Care Team Providers Care Bit Gatherer Name Role Phone Jay Howell MD Primary Care Provider [phone] Encounter Details Date Type Department Care Team (Late st Contact Info) Description 06/13/2020 Transcribed Document [facility] [place] Family Medicine [address] [place] [address] ProviderJessie MD [address] [place] [address]651 Social History Tobacco Use Types Packs/Day Years Used Date Smoking Tobacco: Never Assessed Comments Unknown Sex and Gender Information Value Date Recorded Sex Assigned at Not on file Legal Sex Female 7:30 PM CDT Gender Identity Not on file Sexual Orientation Not on file documented as of this encounter Miscellaneous Notes * Cerner Conversion Note - Jessie ProviderMD - 06/13/2020 9:18 AM CDT Patient: [...] Problem list: Medical Arthritis / SNOMED CT 4164873 / Confirmed Atrial fibrillation with RVR / SNOMED CT 0033467760 / Confirmed Cataract / Patient Care / Confirmed Chest pain / SNOMED CT 82468734 / Complaint of COPD / SNOMED CT 25337066 / Confirmed Coronary artery disease / SNOMED CT 4521455256 / Confirmed Diabetes mellitus / SNOMED CT 119777099 / Confirmed GERD - Gastro-esophageal reflux disease / SNOMED CT 1130060170 / Confirmed Glaucoma / Patient Care / Confirmed Chronic anticoagulation / SNOMED CT 040100992 / Confirmed Hx of pulmonary embolus / SNOMED CT 184098891 / Confirmed High blood pressure / SNOMED CT 24098767 / Confirmed History of obstructive sleep apnea / IMO 56313411 / Confirmed Hyperlipidemia / SNOMED CT 16719460 / Confirmed Multiple renal cysts / SNOMED CT 023718377 / Confirmed Emphysema / SNOMED CT 883314465 / Confirmed Apnea, sleep / SNOMED CT 604297300 / Confirmed Stented coronary artery / SNOMED CT 5188465625 / Confirmed UTI - Urinary tract infection / SNOMED CT 6744851626 / Confirmed, Active Problems (21) Apnea, sleep [...] and time 36mins Electronically signed by Interface, [facility] Conversion Post Tronic Machine Operator Cerner at 02/04/2023 2:21 PM CDT documented in this encounter Plan of Treatment Not on file documented as of this encounter Visit Diagnoses Not on filedocumented in this encounter Care Teams Bit Gatherer Relationship Specialty Start Date End Date Jay Howell MD [address] [place] [phone] PCP - General Emergency Medicine 11/12/23 documented as of this encounter
--- OUTSIDE RECORDS SUMMARY | 2025-10-12 21:55 | XMS_ITS | Encounter Summary ---
Author Organization [employer] ([place], [place], [place], [place], [place]) Address [address] [place] [address] Care Team Providers Care Riding Teacher Name Role Phone Jay Howell MD Primary Care Provider [phone] Encounter Details Date Type Department Care Team (Late st Contact Info) Description 06/13/2020 Transcribed Document [facility] [place] Family Medicine [address] [place] [address] ProviderJessie MD [address] [place] [address] [phone] Social History Tobacco Use Types Packs/Day Years Used Date Smoking Tobacco: Never Assessed Comments Unknown Sex and Gender Information Value Date Recorded Sex Assigned at Not on file Legal Sex Female 7:30 PM CDT Gender Identity Not on file Sexual Orientation Not on file documented as of this encounter Miscellaneous Notes * Cerner Conversion Note - Jessie Yuen MD - 06/13/2020 2:31 AM CDT ED Event Note Entered On: 06/13/2020 2:31 EDT Performed On: 06/13/2020 2:31 EDT by NICOLE BYERS RN ED Event Note ED Event Date/Time : 06/13/2020 2:31 EDT ED Description of Event : handoff report to MAHENDRA Berman. pt ready to be transported to floor. NICOLE BYERS RN - 06/13/2020 2:31 EDT documented in this encounter Plan of Treatment Not on file documented as of this encounter Visit Diagnoses Not on filedocumented in this encounter Care Teams Riding Teacher Relationship Specialty Start Date End Date Jay Howell MD [address] [place] [phone] PCP - General Emergency Medicine 11/12/23 documented as of this encounter
--- OUTSIDE RECORDS SUMMARY | 2025-10-12 21:55 | XMS_ITS | Encounter Summary ---
Author Organization [employer] ([place], [place], [place], [place], [place]) Address [address] [place] [address] Care Team Providers Care Pattern Room Attendant Name Role Phone Jay Howell MD Primary Care Provider [phone] Encounter Details Date Type Department Care Team (Late st Contact Info) Description 06/13/2020 Transcribed Document [facility] [place] [address] [place] [address] ProviderJessie MD [address] [place] [address] Social History Tobacco Use Types Packs/Day Years [...] on filedocumented in this encounter Care Teams Pattern Room Attendant Relationship Specialty Start Date End Date Jay Howell MD [address] [place] [phone] PCP - General Emergency Medicine 11/12/23 documented as of this encounter
--- OUTSIDE RECORDS SUMMARY | 2025-10-12 21:55 | XMS_ITS | Encounter Summary ---
Author Organization [employer] ([place], [place], [place], [place], [place]) Address [address] [place] [address] Care Team Providers Care Supervisor Char House Name Role Phone Jay Howell MD Primary Care Provider [phone] Encounter Details Date Type Department Care Team (Late st Contact Info) Description 06/13/2020 Transcribed Document [facility] [place] [address] [place] [address] ProviderJessie MD [address] [place] [address] Social History Tobacco Use Types Packs/Day Years [...] PharmD student Luis Manuel Briones PharmD, BCPS [phone] Electronically signed by Sivan [facility] Conversion Ticket Taker Ferryboat Cerner at 02/04/2023 2:11 PM CDT documented in this encounter Plan of Treatment Not on file documented as of this encounter Visit Diagnoses Not on filedocumented in this encounter Care Teams Supervisor Char House Relationship Specialty Start Date End Date Jay Howell MD [address] [place] [phone] PCP - General Emergency Medicine 11/12/23 documented as of this encounter
--- OUTSIDE RECORDS SUMMARY | 2025-10-12 21:55 | XMS_ITS | Encounter Summary ---
Author Organization [employer] ([place], [place], [place], [place], [place]) Address [address] [place] [address] Care Team Providers Care Director Of Physical Therapy Name Role Phone Jay Howell MD Primary Care Provider [phone] Encounter Details Date Type Department Care Team (Late st Contact Info) Description 06/12/2020 Transcribed Document [facility] [place] Family Medicine [address] [place] [address] ProviderJessie MD [address] [place], [place] [phone] Social History Tobacco Use Types Packs/Day [...] Jessie ProviderMD - 06/12/2020 9:23 PM CDT [place] Suicide Severity Rating Scale (C-SSRS) Entered On: 06/12/2020 22:56 EDT Performed On: 06/12/2020 22:00 EDT by NICOLE BYERS RN [place] Suicide Severity Rating Scale (C-SSRS) CSSRS Past Month Wish to be : No CSSRS Past Month Suicidal Thoughts : No CSSRS Lifetime Suicide Behavior : No Suicide Severity Rating Score : 0 Suicide Severity Rating : No Additional Care Required at this time NICOLE BYERS RN - 06/12/2020 22:47 EDT Electronically signed by Gayle Finnegan Conversion Psychologist Military Personnel Cerner at 02/04/2023 2:01 PM CDT documented in this encounter Plan of Treatment Not on file documented as of this encounter Visit Diagnoses Not on filedocumented in this encounter Care Teams Director Of Physical Therapy Relationship Specialty Start Date End Date Jay Howell MD [address] [place] [phone] PCP - General Emergency Medicine 11/12/23 documented as of this encounter
--- OUTSIDE RECORDS SUMMARY | 2025-10-12 21:55 | XMS_ITS | Encounter Summary ---
Author Organization [employer] ([place], [place], [place], [place], [place]) Address [address] [place] [address] Care Team Providers Care Fire Boat Engineer Name Role Phone Jay Howell MD Primary Care Provider [phone] Encounter Details Date Type Department Care Team (Late st Contact Info) Description 06/13/2020 Transcribed Document [facility] [place] [address] [place] [address] ProviderJessie MD [address] [place], [place] [phone] Social History Tobacco Use Types Packs/Day Years Used Date Smoking Tobacco: Never Assessed Comments Unknown Sex and Gender Information Value Date Recorded Sex Assigned at Not on file Legal Sex Female 7:30 PM CDT Gender Identity Not on file Sexual Orientation Not on file documented as of this encounter Miscellaneous Notes * Cerner Conversion Note - Jessie ProviderMD - 06/13/2020 3:38 PM CDT GARCIA/IMM Entered On: 06/13/2020 15:38 EDT Performed On: 06/13/2020 15:38 EDT by MARILYNN RAMÍREZ, RN-Utilization Review GARCIA/IMM Important Medicare Message Reviewed With : Patient Important Medicare Message Reviewed D/T : 06/13/2020 15:16 EDT MARILYNN RAMÍREZ, RN-Utilization Review - 06/13/2020 15:38 EDT Electronically signed by Sivan [facility] Conversion Manufacturing Team Member [employer] at 02/04/2023 2:14 PM CDT documented in this encounter Plan of Treatment Not on file documented as of this encounter Visit Diagnoses Not on filedocumented in this encounter Care Teams Fire Boat Engineer Relationship Specialty Start Date End Date Jay Howell MD [address] [place] [phone] PCP - General Emergency Medicine 11/12/23 documented as of this encounter
--- OUTSIDE RECORDS SUMMARY | 2025-10-12 21:55 | XMS_ITS | Encounter Summary ---
Author Organization [employer] ([place], [place], [place], [place], [place]) Address [address] [place] [address] Care Team Providers Care Physical Therapy Resident Name Role Phone Jay Howell MD Primary Care Provider [phone] Encounter Details Date Type Department Care Team (Late st Contact Info) Description 07/18/2021 Transcribed Document [facility] [place] [address] [place] [address] ProviderJessie MD [address] [place], [place] [address]85[address] Social History Tobacco Use Types Packs/Day Years [...] - Urgent Tracking Group : [facility] ED CHETAN BRASWELL RN-Resource - 07/18/2021 15:10 [...] 15:12:21 EDT) Problems(Active) Apnea, sleep (SNOMED CT :641794949 ) Name of Problem: Apnea, sleep ; Recorder: JUAN LUIS GIL RN; Confirmation: Confirmed ; Classification: Medical ; Code: [id number] ; Contributor System: PowerChart ; Last Updated: 11/12/2014 10:12 EST ; Life Cycle Date: 11/12/2014 ; Life Cycle Status: Active ; Vocabulary: SNOMED CT Arthritis (SNOMED CT :9457361 ) Name of Problem: Arthritis ; Recorder: KENYON CHAMBERS RN; Confirmation: Confirmed ; Classification: Medical ; Code: 6090786 ; Contributor System: PowerChart ; Last Updated: 04/10/2016 8:04 EDT ; Life Cycle Date: 08/13/2013 ; Life Cycle Status: Active ; Vocabulary: SNOMED CT Atrial fibrillation with RVR (SNOMED CT :4028559331 ) Name of Problem: Atrial fibrillation with RVR ; Recorder: SANG RICO APRN; Confirmation: Confirmed ; Classification: Medical ; Code: 5027728574 ; Contributor System: PowerChart ; Last Updated: 04/10/2016 8:05 EDT ; Life Cycle Date: 04/10/2016 ; Life Cycle Status: Active ; Responsible Provider: SANG RICO APRN; Vocabulary: SNOMED CT Blood clot (SNOMED CT :978413056 ) Name of Problem: Blood clot ; Recorder: KENYON CHAMBERS RN; Confirmation: Confirmed ; Classification: Patient Stated ; Code: 135937471 ; Contributor System: PowerChart ; Last Updated: [...] Vocabulary: Patient Care Chest pain (SNOMED CT :78149347 ) Name of Problem: Chest pain ; Recorder: SANG RICO APRN; Confirmation: Complaint of ; Classification: Medical ; Code: 56383232 ; Contributor System: PowerChart ; Last Updated: 04/10/2016 8:05 EDT ; Life Cycle Status: Active ; Responsible Provider: SANG RICO APRN; Vocabulary: SNOMED CT Chronic anticoagulation (SNOMED CT :436326338 ) Name of Problem: Chronic anticoagulation ; Recorder: SANG RICO APRN; Confirmation: Confirmed ; Classification: Medical ; Code: 381631535 ; Contributor System: [employer] NetworksChart ; Last Updated: 04/10/2016 8:05 EDT ; Life Cycle Date: 04/10/2016 ; Life Cycle Status: Active ; Responsible Provider: SANG RICO APRN; Vocabulary: SNOMED CT Clotting disorder (SNOMED CT :676315921 ) Name of Problem: Clotting disorder ; Recorder: KENYON CHAMBERS RN; Confirmation: Confirmed ; Classification: Patient Stated ; Code: 389339462 ; Contributor System: PowerChart ; Last Updated: 03/28/2014 19:29 EDT ; Life Cycle Date: 08/13/2013 ; Life Cycle Status: Active ; Vocabulary: SNOMED CT COPD (SNOMED CT :69563525 ) Name of Problem: COPD ; Recorder: KENYON CHAMBERS RN; Confirmation: Confirmed ; Classification: Medical ; Code: 46948252 ; Contributor System: [employer]Chart ; Last Updated: 04/10/2016 8:03 EDT ; Life Cycle Date: 08/13/2013 ; Life Cycle Status: Active ; Vocabulary: SNOMED CT Coronary artery disease (SNOMED CT :1731149554 ) Name of Problem: Coronary artery disease ; Recorder: KENYON CHAMBERS RN; Confirmation: Confirmed ; Classification: Medical ; Code: 4136958484 ; Contributor System: [employer]Chart ; Last Updated: 04/10/2016 8:03 EDT ; Life Cycle Date: 08/13/2013 ; Life Cycle Status: Active ; Vocabulary: SNOMED CT Diabetes mellitus (SNOMED CT :647436030 ) Name of Problem: Diabetes mellitus ; Recorder: KENYON CHAMBERS RN; Confirmation: Confirmed ; Classification: Medical ; Code: 288511835 ; Contributor System: [employer]Chart ; Last Updated: 04/10/2016 8:04 EDT ; Life Cycle Date: 08/13/2013 ; Life Cycle Status: Active ; Vocabulary: SNOMED CT Emphysema (SNOMED CT :178751255 ) Name of Problem: Emphysema ; Recorder: JUAN LUIS GIL RN; Confirmation: Confirmed ; Classification: Medical ; Code: 790482596 ; Contributor System: PowerChart ; Last Updated: 11/12/2014 10:11 EST ; Life Cycle Date: 11/12/2014 ; Life Cycle Status: Active ; Vocabulary: SNOMED CT GERD - Gastro-esophageal reflux disease (SNOMED CT :9331756628 ) Name of Problem: GERD - Gastro-esophageal reflux disease ; Recorder: KENYON CHAMBERS RN; Confirmation: Confirmed ; Classification: Medical ; Code: 8899228361 ; Contributor System: PowerChart ; Last Updated: [...] Patient Care High blood pressure (SNOMED CT :11704840 ) Name of Problem: High blood pressure ; Recorder: KENYON CHAMBERS RN; Confirmation: Confirmed ; Classification: Medical ; Code: 90691164 ; Contributor System: PowerChart ; Last Updated: 04/10/2016 8:03 EDT ; Life Cycle Date: 08/13/2013 ; Life Cycle Status: Active ; Vocabulary: SNOMED CT History of obstructive sleep apnea (IMO :70774415 ) Name of Problem: History of obstructive sleep apnea ; Recorder: SYSTEM, SYSTEM; Confirmation: Confirmed ; Classification: Medical ; Code: 95455499 ; Last Updated: 08/25/2020 18:21 EST ; Life Cycle Date: 08/25/2020 ; Life Cycle Status: Active ; Vocabulary: IMO Hx of pulmonary embolus (SNOMED CT :427241059 ) Name of Problem: Hx of pulmonary embolus ; Recorder: SANG RICO APRN; Confirmation: Confirmed ; Classification: Medical ; Code: 833020330 ; Contributor System: PowerChart ; Last Updated: 04/10/2016 8:05 EDT ; Life Cycle Date: 04/10/2016 ; Life Cycle Status: Active ; Responsible Provider: SANG RICO APRN; Vocabulary: SNOMED CT Hyperlipidemia (SNOMED CT :39315949 ) Name of Problem: Hyperlipidemia ; Recorder: KENYON CHAMBERS RN; Confirmation: Confirmed ; Classification: Medical ; Code: 91551614 ; Contributor System: PowerChart ; Last Updated: 04/10/2016 8:03 EDT ; Life Cycle Date: 08/13/2013 ; Life Cycle Status: Active ; Vocabulary: SNOMED CT Multiple renal cysts (SNOMED CT :352654906 ) Name of Problem: Multiple renal cysts ; Recorder: KENYON CHAMBERS RN; Confirmation: Confirmed ; Classification: Medical ; Code: 890893036 ; Contributor System: PowerChart ; Last Updated: 04/10/2016 8:04 EDT ; Life Cycle Date: 08/13/2013 ; Life Cycle Status: Active ; Vocabulary: SNOMED CT Stented coronary artery (SNOMED CT :6366955291 ) Name of Problem: Stented coronary artery ; Recorder: KENYON CHAMBERS RN; Confirmation: Confirmed ; Classification: Medical ; Code: 5178723342 ; Contributor System: PowerChart ; Last Updated: 04/10/2016 8:03 EDT ; Life Cycle Date: 08/13/2013 ; Life Cycle Status: Active ; Vocabulary: SNOMED CT Diagnoses(Active) Chest pain Date: 07/18/2021 ; Diagnosis Type: Reason For Visit ; Confirmation: Complaint of ; Clinical Dx: Chest pain ; Classification: Medical ; Clinical Service: Emergency medicine ; Code: PNED ; Probability: 0 ; Diagnosis Code: [id number] ED Height and Weight Height Source : Stated Height Entry Format : [place] Height, Feet : 5 ft(Converted to: 152 cm, 60 Inch) Height, Inches : 3 Inch(Converted to: 0 ft 3 Inch, 7.62 cm) Clinical Height : 160.02 cm Weight Source, ED : Critical estimated dosing weight Weight Entry Format : [place] Weight, Pounds : 154 lb Clinical Dosing Weight : 70 kg Body Surface Area (BSA) : 1.73 m2 Body Mass Index : 27.3 kg/m2 (HI) [place] Body Weight (IBW) : 52.02 kg CHETAN BRASWELL RN-Resource - 07/18/2021 15:10 EDT Pain Assessment Pain Assessment : Initial assessment Pain Scale Used : 0-10 Scale Location : Chest BRASWELL, CHETAN C, RN-Resource - 07/18/2021 15:10 EDT Pain Scale Intensity : 6 CHETAN BRASWELL RN-Resource - 07/18/2021 15:10 EDT Image 4 - Images currently included in the form version of this document have not been included in the text rendition version of the form. Electronically signed by Sivan, [facility] Conversion Purchasing Officer Cerner at 02/04/2023 2:06 PM CDT documented in this encounter Plan of Treatment Not on file documented as of this encounter Visit Diagnoses Not on filedocumented in this encounter Care Teams Physical Therapy Resident Relationship Specialty Start Date End Date Jay Howell MD [address] [place] [phone] PCP - General Emergency Medicine 11/12/23 documented as of this encounter
--- OUTSIDE RECORDS SUMMARY | 2025-10-12 21:55 | XMS_ITS | Encounter Summary ---
Author Organization [employer] ([place], [place], [place], [place], [place]) Address [address] [place] [address] Care Team Providers Care Biology Tutor Name Role Phone Jay Howell MD Primary Care Provider [phone] Encounter Details Date Type Department Care Team (Late st Contact Info) Description 06/13/2020 Transcribed Document [facility] [place] [address] [place] [address] ProviderJessie MD [address] [place] [address] Social History Tobacco Use Types Packs/Day Years [...] MD-CAR Basic Information PCP: Avtar Moeller MD Supervisor In Circuit Testing: Stephania Garcia MD Chief Complaint Chest pain History of Present Illness 79 year old female with history of CAD s/p CABG (1992) and subsequent stents in 2007 [id number], Paroxysmal atrial fibrillation and prior PE on [...] 2 mg 1 Tab, [facility] mg tab 3 [...] History: Active Cataract Glaucoma Coronary artery disease (4226627733) Stented coronary artery (5424104363) High blood pressure (92915910) Hyperlipidemia (45331325) COPD (28490491) GERD - Gastro-esophageal reflux disease (0035974318) Multiple renal cysts (003634105) UTI - Urinary tract infection (9638577493) Arthritis (8919389) Diabetes mellitus (914052136) Emphysema (997255364) Apnea, sleep (406185504) Hx of pulmonary embolus (210767431) Chronic anticoagulation (277852002) Atrial fibrillation with RVR (5477510360) Family History: Cardiomyopathy Child Stroke Brother Heart attack Brother Sister Leukemia Child Cancer Father Mother Sister Coronary heart disease Child Procedure history: Cardiac Stent in 2010 at 70 Years. Coronary artery bypass graft (525520810) in 1992 at 52 Years. femur repair. Appendectomy (184655345). uterine suspension. Hysterectomy (120382143). back surgury. Cholecystectomy (43372234). Hip replacement (3216598086). cataract surgury. Physical Examination VS/Measurements Vitals Signs [...] of motion, Normal strength. Integumentary: Warm, Dry, [place]. Neurologic: Alert, Oriented. Psychiatric: Cooperative, Appropriate mood [...] 24 Hours) Radiology Results (Last 48 hours) [id number] -- 06/12/2020 23:54 CR Chest 1 Vw [...] <0.015 (JUN 13) <0.015 (JUN 12) . [facility] IMPRESSION: Angiographically, the patient has severe three-vessel [...] w/ Dr. Garcia. Electronically signed by Sivan [facility] Conversion Soda Flaker Cerner at 02/04/2023 1:58 PM CDT documented in this encounter Plan of Treatment Not on file documented as of this encounter Visit Diagnoses Not on filedocumented in this encounter Care Teams Biology Tutor Relationship Specialty Start Date End Date Jay Howell MD [address] [place] [phone] PCP - General Emergency Medicine 11/12/23 documented as of this encounter
--- OUTSIDE RECORDS SUMMARY | 2025-10-12 21:55 | XMS_ITS | Encounter Summary ---
Author Organization [employer] ([place], [place], [place], [place], [place]) Address [address] [place] [address] Care Team Providers Care Crusher Screen Repairer Name Role Phone Jay Howell MD Primary Care Provider [phone] Encounter Details Date Type Department Care Team (Late st Contact Info) Description 07/18/2021 Transcribed Document [facility] [place] [address] [place] [address] ProviderJessie MD [address] [place], [place] [phone] Social History Tobacco Use Types Packs/Day Years [...] Communication Barrier : None Primary Language : Burundian Any Spiritual/Cultural Needs or Requests : No [...] Home/Independent. (Last Updated: 12/14/2014 22:42:39 EST by BIPNI HOFF RN) Cardiovascular ASMT, ED Cardiovascular Assessment [...] on filedocumented in this encounter Care Teams Crusher Screen Repairer Relationship Specialty Start Date End Date Jay Howell MD [address] [place] [phone] PCP - General Emergency Medicine 11/12/23 documented as of this encounter
--- OUTSIDE RECORDS SUMMARY | 2025-10-12 21:55 | XMS_ITS | Encounter Summary ---
Author Organization [email or web address] ([place], [place], [place], [place], [place]) Address [address] [place] [address] Care Team Providers Care Strategic Intelligence Officer Name Role Phone Jay Howell MD Primary Care Provider [phone] Encounter Details Date Type Department Care Team (Late st Contact Info) Description 07/18/2021 Transcribed Document [facility] [place] [address] [place] [address] ProviderJessie MD [address] [place], [place] [id number] Social History Tobacco Use Types Packs/Day Years [...] - 07/18/2021 15:20 EDT Electronically signed by Abel Finnegan Conversion Customer Support Professional Cerner at 02/04/2023 1:59 PM CDT documented in this encounter Plan of Treatment Not on file documented as of this encounter Visit Diagnoses Not on filedocumented in this encounter Care Teams Strategic Intelligence Officer Relationship Specialty Start Date End Date Jay Howell MD [address] [place] [phone] PCP - General Emergency Medicine 11/12/23 documented as of this encounter
--- OUTSIDE RECORDS SUMMARY | 2025-10-12 21:55 | XMS_ITS | Encounter Summary ---
Author Organization [employer] ([place], [place], [place], [place], [place]) Address [address] [place] [address] Care Team Providers Care Customs Entry Clerk Name Role Phone Jay Howell MD Primary Care Provider [phone] Encounter Details Date Type Department Care Team (Late st Contact Info) Description 06/12/2020 Transcribed Document [facility] [place] [address] [place] [address] ProviderJessie MD [address] [place] [address] Social History Tobacco Use Types Packs/Day Years Used Date Smoking Tobacco: Never Assessed Comments Unknown Sex and Gender Information Value Date Recorded Sex Assigned at Not on file Legal Sex Female 7:30 PM CDT Gender Identity Not on file Sexual Orientation Not on file documented as of this encounter Miscellaneous Notes * Cerner Conversion Note - Jessie Yuen MD - 06/12/2020 9:45 PM CDT Patient: SKYLER [...] Years. Coronary artery bypass graft (SNOMED CT 617228726) in 1992 at 52 Years. femur repair. Appendectomy (SNOMED CT 377142051). uterine suspension. Hysterectomy (SNOMED CT 796798034). back surgury. Cholecystectomy (SNOMED CT 77368000). Hip replacement (SNOMED CT 5890244683). cataract surgury., Reviewed as documented in chart. [...] EDT Height Source Stated Height Entry Format Gregory Height/Length, SOUTH KOREAN (ft) 5 ft Height/Length [place]OU[place]ORE[place] 3 Inch CLINICALHEIGHT 160.02 cm Morton Body Weight 52.02 kg Weight Source, ED Critical estimated dosing weight Weight Entry Format Gregory Weight Gibraltarian lb 161 lb CLINICALWEIGHT 73.18 kg Body [...] rhythm, No ST changes, no ectopy, normal UT & QRS intervals, EP Interp. Electrocardiogram: Time 06/13/2020 00:55:00, rate 67, normal sinus rhythm, No ST changes, no ectopy, normal UT & QRS intervals, EP Interp. Results review: [...] % 34.6 % Lymph # 1.99 x10(3)/uL [place] % 10.6 % HI [place] # 0.61 K/uL Eos % 2.1 % [...] type: Telemetry unit, Admitting: [facility] ELE[facility]OS [facility] . Counseled: Patient, Family, Regarding diagnosis, Regarding diagnostic results, Regarding treatment plan, Patient indicated understanding of instructions. Notes: Patient presents with hypertensive urgency and chest pain. Initial EKG and troponin negative. Blood pressure decreased after IV hydralazine, labetalol, and transdermal Nitropaste. Discussed with Dr. Davalos, hospitalist, he accepts admission for further evaluation and care.. Electronically signed by Sivan, [facility] Conversion Crossbar Frame Wirer Cerner at 02/04/2023 2:16 PM CDT documented in this encounter Plan of Treatment Not on file documented as of this encounter Visit Diagnoses Not on filedocumented in this encounter Care Teams Customs Entry Clerk Relationship Specialty Start Date End Date Jay Howell MD [address] [place] [phone] PCP - General Emergency Medicine 11/12/23 documented as of this encounter
--- OUTSIDE RECORDS SUMMARY | 2025-10-12 21:55 | XMS_ITS | Encounter Summary ---
Author Organization [employer] ([place], [place], [place], [place], [place]) Address [address] [place] [address] Care Team Providers Care Pipeline Technician Name Role Phone Jay Howell MD Primary Care Provider [phone] Encounter Details Date Type Department Care Team (Late st Contact Info) Description 07/18/2021 Transcribed Document [facility] [place] [address] [place] [address] ProviderJessie MD [address] [place], [place] [address] Social History Tobacco Use Types Packs/Day Years [...] 06/13/2020 8:52 EVA LAWS RN PCI w/ [place] stent to D1 Coronary artery bypass graft (540486381) in 1992 at 52 Years. femur repair. Appendectomy (509853901). uterine suspension. Hysterectomy (347562511). back surgury. Cholecystectomy (71263565). Hip replacement (6303657388). cataract surgury.. Family history: Cardiomyopathy Child Stroke [...] EDT Height Source Stated Height Entry Format Lucas Height/Length, BRAZILIAN (ft) 5 ft Height/Length BRAZILIAN 3 Inch CLINICALHEIGHT 160.02 cm [place] Body Weight 52.02 kg Weight Source, ED Critical estimated dosing weight Weight Entry Format Lucas Weight Cape Verdean lb 154 lb CLINICALWEIGHT 70 kg Body [...] C-SSRS: ED Clinical Reconciliation: ED Isolation: ED aquacultural worker supervisor: Lipase Level: PT/INR Prothrombin Time: PTT: ProBNP: Saline Lock Insert: Troponin I Ultra: Troponin I Ultra: aspirin: 324 mg, Chew, 1-Time iopamidol: 75 mL, IV Push, ADHOC. Electrocardiogram: Time 07/18/2021 15:21:00, rate 57, normal sinus rhythm, No ST changes, no ectopy, normal AR & QRS intervals, EP Interp. Electrocardiogram: Time 07/18/2021 19:13:00, rate 53, normal sinus rhythm, No ST changes, no ectopy, normal AR & QRS intervals, EP Interp. monitor worker: Normal sinus rhythm. Results review: All Results [...] % 30.3 % Lymph # 1.46 x10(3)/uL [place] % 10.4 % HI [place] # 0.50 K/uL Eos % 0.0 % Eos # 0.00 x10(3)/uL Baso % 0.4 % Baso # 0.02 x10(3)/uL Slide Review No IG# 0.03 x10(3)/uL IG% 0.60 % PT 39.6 Second(s) HI INR 4.1 HI PTT 44.9 Second(s) HI . Radiology results: Radiology Results (Last 48 hours) [id number] -- 07/18/2021 15:00 CR Chest 1 Vw [...] of instructions. Notes: I certify that the MLP/SELLING SPECIALIST performed the services as delegated. . documented in this encounter Plan of Treatment Not on file documented as of this encounter Visit Diagnoses Not on filedocumented in this encounter Care Teams Pipeline Technician Relationship Specialty Start Date End Date Sokan, Jay O, MD [address] [place] [phone] PCP - General Emergency Medicine 11/12/23 documented as of this encounter
--- OUTSIDE RECORDS SUMMARY | 2025-10-12 21:55 | XMS_ITS | Clinical Summary ---
Author Organization [facility] Address [address] [place] [address] Care Team Providers Care Performance Test Engineer Name Role Phone Unavailable Primary Care Provider Unavailabl e Allergies Active Allergy Reactions Criticality Noted Date [...] severe pain. 30 tablet 09/19/20 24 Active oxyCODONE (Roxicodone) 5 MG immediate release tablet Take 1 tablet by mouth every 6 hours as needed (pain) for up to 3 days. 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 She has denied any chest pain. Her last heart catheterization was November 25, 2022 at [facility] in [place] showing: -last C 11/25/2022- A. CAD s/p [...] of chest/PE protocol. Patient was sent to [facility] radiology department for CT scan today. - Check stat D-dimer. Low magnesium level 05/17/2023 09/23/2023 01/22/20 24 Overview (09/23/2023): Last Assessment & Plan: Labs [...] Encounters Date Type Department Care Team Description 10/07/2025 Telephone [facility] [address] [place] [address] System, Provider Not In, MD JAY Clinical Concern/Question 09/30/2025 5:24 PM EST - 10/01/2025 12:51 AM EST Emergency [facility] A Emergency Department [address] [place] [address] Jesse May MD Belcher, Christopher N, MD PVD (peripheral vascular disease) (Primary Dx); Right lower lobe pulmonary nodule Discharge Disposition: Home or Self Care 09/30/2025 Travel 07/16/2025 Telephone [facility] Urology [address] [place] [address] Kimmie Cabrera from Last 3 Months Immunizations Immunization Administration [...] place to sleep or slept in a snf (including now)? No 08/06/2024 CAGE ASSESSMENT Answer [...] drink first t kathleen in the morning (EYE-TRANSMISSION ASSEMBLER) to steady your nerves or to get [...] Mass Index 20.65 09/30/2025 5:55 PM EST Plan of Treatment Upcoming Encounters Date Type Department Care Team (Late st Contact Info) Description 10/24/2025 1:30 PM EST Appointment [facility] Vascular Lab [address] [place] [address] 10/24/2025 2:20 PM EST Office Visit [facility] [address] [place] [address] Zaida Nichols MD [address] [place] [address] Health Maintenance Due Date Last Done Comments [...] 09/17/2024 03/20/2024, 01/20/2024 [facility]-Depression Screening 04/03/2025 04/03/2024 AED-DGRBA-72 Vaccine (2024- season) 2025 12/09/2021, 02/17/2021, 01/27/2021 [facility]-Influenza Vaccine (#1) 06/17/202507/06, 07/06/2021, 06/30/2020, Additional history exists [facility]-DTaP,Tdap,and Td Vaccines (2 - Td or Tdap) 01/19/2034 01/20/2024, 07/26/2011, 07/07/2005 [facility]-Pneumococcal Vaccine: 50+ Years Completed 09/22/2017, 07/26/2013, 07/23/2010, Additional history exists HPV Vaccines (No Doses Required) Completed [facility]-HIB Vaccines Aged Out No longer e ligible based on patient's age to complete this topic [facility]-IPV Vaccines Aged Out No longer e ligible based on patient's age to complete this topic [facility]-Rotavirus Vaccines Aged Out No lo nger eligible based on patient's age to complete this topic Medical Devices Implanted Type Area Lead Investigator Device Identifier Shelf Expiration Date Model / Serial / Lot Nail 10s Intertan 10mm X 36cm 130d Left - [id number] Implanted:Qty: 1 on 03/20/2024 by Haroldo Braden MD at [facility] Nail Left: Femur [employer]-[id number] 08/04/2033 [id number] / / [id number] Nail Tibial [id number] - [id number] Implanted:Qty: 1 on 08/06/2024 by Haroldo Braden MD at [facility] Nail Right: Tibia [employer] ([facility])-[id number] 09/15/2033 [id number] / / [id number] Lag/Comp Screw Kit 90/85 - [id number] Implanted:Qty: 1 on 03/20/2024 by Haroldo Braden MD at [facility] Screw Left: Femur [employer]-[id number] 09/26/2033 [id number] / / [id number] Screw Trigen 5.0mm For Metanail 37.5mm - [id number] Implanted:Qty: 1 on 03/20/2024 by Haroldo Braden MD at [facility] Screw Left: Femur [employer]-[id number] 08/19/2033 [id number] / / [id number] Screw Locking Adv T2 T2 D5xl60 - [id number] Implanted:Qty: 1 on 08/06/2024 by Haroldo Braden MD at [facility] Screw Right: Tibia [employer] ([facility][id number] 05/16/2034 [id number] / / [id number] Screw Locking Adv T2 T2 D5xl50 - [id number] Implanted:Qty: 1 on 08/06/2024 by Haroldo Braden MD at [facility] Screw Right: [employer] ([facility][id number] 01/14/2034 [id number] / / [id number] Screw Locking T2 D5xl42.5 - [id number] Implanted:Qty: 1 on 08/06/2024 by Haroldo Braden MD at [facility] Screw Right: [employer] ([facility])-[id number] 05/16/2034 [id number] / / [id number] Screw Locking T2 D5x35 - [id number] Implanted:Qty: 1 on 08/06/2024 by Haroldo Braden MD at [facility] Screw Right: Tibia [employer] ([facility][id number] 05/16/2034 [id number] / / [id number] Procedures Procedure Name Priority Date/Time Associated Diagnosis [...] PANEL, PLASMA STAT 09/30/2025 5:24 PM EST HEMOGLOBIN A1C STAT Add-on 03/20/2024 12:53 AM EDT from Last 3 Months or Most Recently Relevant to Health Maintenance Results * Potassium (09/30/2025 9:03 PM EST) Potassium, Plasma 4.1 3.6 - 4.9 mmol/L 09/30/2025 9:[address] [facility] Blood Venous blood specimen / Unknown Venipuncture / Unknown 09/30/2025 9:03 PM EST 09/30/2025 9:34 PM EST us Jesse May MD LAB BLOOD ORDERABLES Final Re sult [facility] [address] [place] [address] * CT Angio Abdomen Pelvis w Runoff [...] fractures, though the right lateral ninth rib [id number] new from prior CT. Median sternotomy wires. [...] Farhad Ybarra MD on 09/30/2025 11:55 PM us Eldon Mcbride MD IMG CT PROCEDURES Final Result * Lactic acid, venous (09/30/2025 7:25 PM EST) [facility] Lactate, Venous, Whole Blood 1.6 0.5 - 2.2 mmol/L LAB HEMATOLOGY METHOD 09/30/2025 7:[address] [facility] Blood Venous blood specimen / Unknown Venipuncture / Unknown 09/30/2025 7:25 PM EST 09/30/2025 7:30 PM EST us Eldon Mcbride MD LAB BLOOD ORDERABLES Final Resul t [facility] [address] [place] [address] * ED HIV 1/2 Antibody/Antigen Screen w/Reflex to HIV 1/2 Differentiation (09/30/2025 5:24 PM EST) [facility] HIV 1 & 2 Antibody/Antigen Screen Non Reactive Non Reactive 09/30/2025 6:[address] [facility] Comment:Screening for HIV 1 & 2 antibodies, and P24 antigen is NONREACTIVE. No confirmatory testing is required. Blood Venous blood specimen / Unknown Venipuncture / Unknown 09/30/2025 5:24 PM EST 09/30/2025 6:16 PM EST us Jovanni Gonsales MD LAB BLOOD ORDERABLES Final Res ult Performing Organization Address City/[facility]/ZIP Co de Phone Number [facility] [address] [place] [address] * Hepatitis C Antibody - ED (09/30/2025 5:24 PM EST) Hepatitis C Antibody Negative Negative 09/30/2025 6:[address] [facility] Blood Venous blood specimen / Unknown Venipuncture / Unknown 09/30/2025 5:24 PM EST 09/30/2025 6:15 PM EST us Jovanni Gonsales MD LAB BLOOD ORDERABLES Final Res ult Performing Organization Address [facility] Co de Phone Number [facility] [address] [place] [address] * (ABNORMAL) CBC w/diff (09/30/2025 5:24 PM EST) Pathologist [facility] WBC Count 4.07 3.70 - 10.30 10*3/uL LAB HEMATOLOGY METHOD 09/30/2025 7:[address] [facility] RBC Count 2.53(L) 3.90 - 5.20 10*6/uL LAB HEMATOLOGY METHOD 09/30/2025 7:[address] [facility] HGB 9.9(L) 11.2 - 15.7 g/dL LAB HEMATOLOGY METHOD 09/30/2025 7:[address] [facility] HCT 30.0(L) 34.0 - 45.0 % LAB HEMATOLOGY METHOD 09/30/2025 7:[address] [facility] Platelet Count LAB HEMATOLOGY METHOD 09/30/2025 7:[address] [facility] Comment:Platelet count not v alid due to clumping. Appears decreased. MCV 119(H) 79 - 98 fL LAB HEMATOLOGY METHOD 09/30/2025 7:[address] [facility] MCH 39.1(H) 26.0 - 32.0 pg LAB HEMATOLOGY METHOD 09/30/2025 7:51 PM [facility] MCHC 33.0 30.7 - 35.5 g/dL LAB HEMATOLOGY METHOD 09/30/2025 7:51 PM [facility] RDW 15.9(H) 11.5 - 14.5 % LAB HEMATOLOGY METHOD 09/30/2025 7:51 PM [facility] MPV LAB HEMATOLOGY METHOD 09/30/2025 7:51 PM [facility] Comment:Not Measured Not Sandra sured nRBC 0.0 <=0.0 per 100 WBCs LAB HEMATOLOGY METHOD 09/30/2025 7:51 PM [facility] Differential Type Automated LAB HEMATOLOGY METHOD 09/30/2025 7:51 PM [facility] Neutrophils % 54 % LAB HEMATOLOGY METHOD 09/30/2025 7:51 PM [facility] Lymphocytes % 36 % LAB HEMATOLOGY METHOD 09/30/2025 7:51 PM [facility] Monocytes % 8 % LAB HEMATOLOGY METHOD 09/30/2025 7:51 PM [facility] Eosinophils % 0 % LAB HEMATOLOGY METHOD 09/30/2025 7:51 PM [facility] Basophils % 1 % LAB HEMATOLOGY METHOD 09/30/2025 7:51 PM [facility] Immature Granulocytes % 1 % LAB HEMATOLOGY METHOD 09/30/2025 7:51 PM [facility] Neutrophils Absolute 2.25 1.60 - 6.10 10*3/uL LAB HEMATOLOGY METHOD 09/30/2025 7:51 PM [facility] Lymphocytes Absolute 1.45 1.20 - 3.90 10*3/uL LAB HEMATOLOGY METHOD 09/30/2025 7:51 PM [facility] Monocytes Absolute 0.31 0.30 - 0.90 10*3/uL LAB HEMATOLOGY METHOD 09/30/2025 7:51 PM [facility] Eosinophils Absolute 0.01 0.00 - 0.50 10*3/uL LAB HEMATOLOGY METHOD 09/30/2025 7:51 PM [facility] Basophils Absolute 0.03 0.00 - 0.10 10*3/uL LAB HEMATOLOGY METHOD 09/30/2025 7:51 PM [facility] Immature Granulocytes Absolute 0.02 0.00 - 0.06 10*3/uL LAB HEMATOLOGY METHOD 09/30/2025 7:[address] [facility] Blood Venous blood specimen / Unknown Venipuncture / Unknown 09/30/2025 5:24 PM EST 09/30/2025 5:[address] [facility] - 09/30/2025 7:51 PM EST Therapeutic decision making should be based on absolute values, rather than percentages. us Jovanni Gonsales MD LAB BLOOD ORDERABLES Final Res ult [facility] [address] [place] [address] * (ABNORMAL) BMP (09/30/2025 5:24 PM EST) Glucose, Plasma 199(H) 74 - 99 mg/dL 09/30/2025 6:[address] [facility] BUN, Plasma 28(H) 8 - 23 mg/dL 09/30/2025 6:[address] [facility] Creatinine, Plasma 0.84 0.60 - 1.10 mg/dL 09/30/2025 6:[address] [facility] BUN/Creatinine Ratio 33 09/30/2025 6:[address] [facility] Sodium, Plasma 138 136 - 145 mmol/L 09/30/2025 6:[address] [facility] Potassium, Plasma 5.5(H) 3.6 - 4.9 mmol/L 09/30/2025 6:[address] [facility] Comment:Hemolyzed - Potassiu m may be falsely elevated by approximately 0.8-1.7 mmol/L. Chloride, Plasma 103 97 - 107 mmol/L 09/30/2025 6:[address] [facility] CO2, Plasma 22 22 - 29 mmol/L 09/30/2025 6:[address] [facility] Anion Gap 13 6 - 16 mmol/L 09/30/2025 6:[address] [facility] Total Calcium, Plasma 9.0 8.9 - 10.2 mg/dL 09/30/2025 6:[address] [facility] eGFRcr 68.2 mL/min/1.7 3m*2 09/30/2025 6:[address] [facility] Comment:Reported eGFRcr in m L/min/1.73m2 is based the CKD-EPI 2020 equation that does not use a race coefficient. Blood Venous blood specimen / Unknown Venipuncture / Unknown 09/30/2025 5:24 PM EST 09/30/2025 6:15 PM EST us Jovanni Gonsales MD LAB BLOOD ORDERABLES Final Res ult Performing Organization Address City/[facility] Co de Phone Number [facility] [address] [place] [address] * Hemoglobin A1c (03/20/2024 12:53 AM EDT) Hemoglobin A1c 4.8 <5.7 % 03/20/2024 4:31 AM EDT [facility] Blood Venous blood specimen / Unknown Venipuncture / Unknown 03/20/2024 12:53 AM EDT 03/20/2024 12:57 AM EDT Narrative [facility] - 03/20/2024 4:31 AM EDT HA1C Interpretive Data: Diagnosis of Diabetes: Diabetic > or = 6.5% Pre-diabetic 5.7 to 6.4% Non-diabetic < or = 5.6% Glycemic Targets for Type I and Type II Diabetics: Non- Adults <7.0% Adults <6.0% Children and Adolescents <7.5% Source: [place] [employer]. Standards of medical care in diabetes,2017. Diabetes Care.2017:40 (suppl 1):S1-S135. HbA1c assay performed by an ion-exchange chromatography method that is certified traceable to the DCCT. us Gerhard Zazueta MD LAB BLOOD ORDERABLES Final Resu lt Performing Organization Address [facility] Co de Phone Number [facility] [address] [place] [address] from Last 3 Months or Most Recently Relevant to Health Maintenance Insurance MEDICARE Advance Directives Documents on File Type Date Recorded Patient Housekeeping Department Worker Expl anation Advance Directives and Livin g [...]
--- OUTSIDE RECORDS SUMMARY | 2025-10-12 21:55 | XMS_ITS | Encounter Summary ---
Author Organization [employer] ([place], [place], [place], [place], [place]) Address [address] [place] [address] Care Team Providers Care Delivery Man Name Role Phone Jay Howell MD Primary Care Provider [phone] Encounter Details Date Type Department Care Team (Late st Contact Info) Description 06/12/2020 Transcribed Document [facility] [place] Family Medicine [address] [place] [address] ProviderJessie MD [address] [place] [address] [phone] Social History Tobacco Use Types Packs/Day Years [...] MD - 06/12/2020 9:23 PM CDT ED Triage [...] : 2 - Emergent Tracking Group : [facility] ED Roni Peralta RN - 06/12/2020 [...] morphine ; Type: Allergy ; Updated By: UASTIN Nuñez; Reviewed Date: 06/12/2020 21:32 EDT nitrofurantoin Estimated Onset Date: Unspecified ; Reactions: blisters, blisters ; Created By: AUSTIN Nuñez; Reaction Status: Active ; Category: Drug ; Substance: nitrofurantoin ; Type: Allergy ; Updated By: AUSTIN Nuñez; Reviewed Date: 06/12/2020 21:32 EDT Diagnosis Control ED (As Of: 06/12/2020 21:35:03 EDT) Problems(Active) Apnea, sleep (SNOMED CT :628027170 ) Name of Problem: Apnea, sleep ; Recorder: JUAN LUIS GIL RN; Confirmation: Confirmed ; Classification: Medical ; Code: [id number] ; Contributor System: PowerChart ; Last Updated: 11/12/2014 10:12 EST ; Life Cycle Date: 11/12/2014 ; Life Cycle Status: Active ; Vocabulary: SNOMED CT Arthritis (SNOMED CT :2927392 ) Name of Problem: Arthritis ; Recorder: KENYON CHAMBERS RN; Confirmation: Confirmed ; Classification: Medical ; Code: [id number] ; Contributor System: PowerChart ; Last Updated: 04/10/2016 8:04 EDT ; Life Cycle Date: 08/13/2013 ; Life Cycle Status: Active ; Vocabulary: SNOMED CT Atrial fibrillation with RVR (SNOMED CT :8907592235 ) Name of Problem: Atrial fibrillation with RVR ; Recorder: SANG RICO APRN; Confirmation: Confirmed ; Classification: Medical ; Code: [id number] ; Contributor System: PowerChart ; Last Updated: 04/10/2016 8:05 EDT ; Life Cycle Date: 04/10/2016 ; Life Cycle Status: Active ; Responsible Provider: SANG RICO APRN; Vocabulary: SNOMED CT Blood clot (SNOMED CT :557136863 ) Name of Problem: Blood clot ; Recorder: KENYON CHAMBERS RN; Confirmation: Confirmed ; Classification: Patient Stated ; Code: [id number] ; Contributor System: PowerChart ; Last Updated: [...] Vocabulary: Patient Care Chest pain (SNOMED CT :20002348 ) Name of Problem: Chest pain ; Recorder: SANG RICO APRN; Confirmation: Complaint of ; Classification: Medical ; Code: 94949203 ; Contributor System: PowerChart ; Last Updated: 04/10/2016 8:05 EDT ; Life Cycle Status: Active ; Responsible Provider: SANG RICO APRN; Vocabulary: SNOMED CT Chronic anticoagulation (SNOMED CT :619773602 ) Name of Problem: Chronic anticoagulation ; Recorder: SANG RICO APRN; Confirmation: Confirmed ; Classification: Medical ; Code: 537871772 ; Contributor System: PowerChart ; Last Updated: 04/10/2016 8:05 EDT ; Life Cycle Date: 04/10/2016 ; Life Cycle Status: Active ; Responsible Provider: SANG RICO APRN; Vocabulary: SNOMED CT Clotting disorder (SNOMED CT :223400049 ) Name of Problem: Clotting disorder ; Recorder: KENYON CHAMBERS RN; Confirmation: Confirmed ; Classification: Patient Stated ; Code: 332509386 ; Contributor System: PowerChart ; Last Updated: 03/28/2014 19:29 EDT ; Life Cycle Date: 08/13/2013 ; Life Cycle Status: Active ; Vocabulary: SNOMED CT COPD (SNOMED CT :25249201 ) Name of Problem: COPD ; Recorder: KENYON CHAMBERS RN; Confirmation: Confirmed ; Classification: Medical ; Code: 87303679 ; Contributor System: PowerChart ; Last Updated: 04/10/2016 8:03 EDT ; Life Cycle Date: 08/13/2013 ; Life Cycle Status: Active ; Vocabulary: SNOMED CT Coronary artery disease (SNOMED CT :6795076286 ) Name of Problem: Coronary artery disease ; Recorder: KENYON CHAMBERS RN; Confirmation: Confirmed ; Classification: Medical ; Code: 9215045341 ; Contributor System: PowerChart ; Last Updated: 04/10/2016 8:03 EDT ; Life Cycle Date: 08/13/2013 ; Life Cycle Status: Active ; Vocabulary: SNOMED CT Diabetes mellitus (SNOMED CT :834015931 ) Name of Problem: Diabetes mellitus ; Recorder: KENYON CHAMBERS RN; Confirmation: Confirmed ; Classification: Medical ; Code: 000406208 ; Contributor System: PowerChart ; Last Updated: 04/10/2016 8:04 EDT ; Life Cycle Date: 08/13/2013 ; Life Cycle Status: Active ; Vocabulary: SNOMED CT Emphysema (SNOMED CT :075444330 ) Name of Problem: Emphysema ; Recorder: JUAN LUIS GIL RN; Confirmation: Confirmed ; Classification: Medical ; Code: 446895129 ; Contributor System: PowerChart ; Last Updated: 11/12/2014 10:11 EST ; Life Cycle Date: 11/12/2014 ; Life Cycle Status: Active ; Vocabulary: SNOMED CT GERD - Gastro-esophageal reflux disease (SNOMED CT :3566628468 ) Name of Problem: GERD - Gastro-esophageal reflux disease ; Recorder: KENYON CHAMBERS RN; Confirmation: Confirmed ; Classification: Medical ; Code: 8484902326 ; Contributor System: PowerChart ; Last Updated: [...] Patient Care High blood pressure (SNOMED CT :89410819 ) Name of Problem: High blood pressure ; Recorder: KENYON CHAMBERS RN; Confirmation: Confirmed ; Classification: Medical ; Code: 42423798 ; Contributor System: PowerChart ; Last Updated: 04/10/2016 8:03 EDT ; Life Cycle Date: 08/13/2013 ; Life Cycle Status: Active ; Vocabulary: SNOMED CT History of obstructive sleep apnea (IMO :43294368 ) Name of Problem: History of obstructive sleep apnea ; Recorder: SYSTEM, SYSTEM; Confirmation: Confirmed ; Classification: Medical ; Code: 91722820 ; Last Updated: 12/20/2018 12:01 EST ; Life Cycle Date: 12/20/2018 ; Life Cycle Status: Active ; Vocabulary: IMO Hx of pulmonary embolus (SNOMED CT :728378149 ) Name of Problem: Hx of pulmonary embolus ; Recorder: SANG RICO APRN; Confirmation: Confirmed ; Classification: Medical ; Code: 252731831 ; Contributor System: PowerChart ; Last Updated: 04/10/2016 8:05 EDT ; Life Cycle Date: 04/10/2016 ; Life Cycle Status: Active ; Responsible Provider: SANG RICO APRN; Vocabulary: SNOMED CT Hyperlipidemia (SNOMED CT :56092943 ) Name of Problem: Hyperlipidemia ; Recorder: KENYON CHAMBERS RN; Confirmation: Confirmed ; Classification: Medical ; Code: 83857576 ; Contributor System: UpplicationChart ; Last Updated: 04/10/2016 8:03 EDT ; Life Cycle Date: 08/13/2013 ; Life Cycle Status: Active ; Vocabulary: SNOMED CT Multiple renal cysts (SNOMED CT :788258622 ) Name of Problem: Multiple renal cysts ; Recorder: KENYON CHAMBERS RN; Confirmation: Confirmed ; Classification: Medical ; Code: 545785493 ; Contributor System: UpplicationChart ; Last Updated: 04/10/2016 8:04 EDT ; Life Cycle Date: 08/13/2013 ; Life Cycle Status: Active ; Vocabulary: SNOMED CT Stented coronary artery (SNOMED CT :1233390394 ) Name of Problem: Stented coronary artery ; Recorder: KENYON CHAMBERS RN; Confirmation: Confirmed ; Classification: Medical ; Code: 0034572532 ; Contributor System: PowerChart ; Last Updated: 04/10/2016 8:03 EDT ; Life Cycle Date: 08/13/2013 ; Life Cycle Status: Active ; Vocabulary: SNOMED CT UTI - Urinary tract infection (SNOMED CT :2724619014 ) Name of Problem: UTI - Urinary tract infection ; Recorder: KENYON CHAMBERS RN; Confirmation: Confirmed ; Classification: Medical ; Code: 4614401791 ; Contributor System: PowerChart ; Last Updated: 04/10/2016 8:04 EDT ; Life Cycle Date: 08/13/2013 ; Life Cycle Status: Active ; Vocabulary: SNOMED CT Diagnoses(Active) Chest pain Date: 06/12/2020 ; Diagnosis Type: Reason For Visit ; Confirmation: Complaint of ; Clinical Dx: Chest pain ; Classification: Medical ; Clinical Service: Emergency medicine ; Code: PNED ; Probability: 0 ; Diagnosis Code: [id number] ED Height and Weight Height Source : Stated Height Entry Format : [place] Height, Feet : 5 ft(Converted to: 152 cm, 60 Inch) Height, Inches : 3 Inch(Converted to: 0 ft 3 Inch, 7.62 cm) Clinical Height : 160.02 cm Weight Source, ED : Critical estimated dosing weight Weight Entry Format : [place] Weight, Pounds : 161 lb Clinical Dosing Weight : 73.18 kg Body Surface Area (BSA) : 1.77 m2 Body Mass Index : 28.6 kg/m2 (HI) [place] Body Weight (IBW) : 52.02 kg Roni Peralta RN - 06/12/2020 21:31 EDT Electronically signed by Sivan [facility] Conversion [employer] at 02/04/2023 2:18 PM CDT documented in this encounter Plan of Treatment Not on file documented as of this encounter Visit Diagnoses Not on filedocumented in this encounter Care Teams Delivery Man Relationship Specialty Start Date End Date Jay Howell MD [address] [place] [phone] PCP - General Emergency Medicine 11/12/23 documented as of this encounter
--- OUTSIDE RECORDS SUMMARY | 2025-10-12 21:55 | XMS_ITS | Encounter Summary ---
Author Organization [employer] ([place], [place], [place], [place], [place]) Address [address] [place] [address] Care Team Providers Care Revenue Cycle Analyst Name Role Phone Jay Howell MD Primary Care Provider [phone] Encounter Details Date Type Department Care Team (Late st Contact Info) Description 12/21/2018 Transcribed Document [facility] [place] Family Medicine [address] [place] [address] ProviderJessie MD [address] [place] [address] [phone] Social History Tobacco Use Types Packs/Day Years Used Date Smoking Tobacco: Never Assessed Comments Unknown Sex and Gender Information Value Date Recorded Sex Assigned at Not on file Legal Sex Female 7:30 PM CDT Gender Identity Not on file Sexual Orientation Not on file documented as of this encounter Miscellaneous Notes * [employer]ner Conversion Note - Jessie Yuen MD - 12/21/2018 11:50 AM 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 Patient Information ?2014 [employer]. Cardiovascular Coronary Artery Disease, Female Coronary artery [...] 12/25/2012 Document Revised: 03/10/2017 Document Reviewed: 02/04/2015 Blurb Interactive Patient Education ? 2017 [employer]. Nutrition Heart-Healthy Eating Plan Introduction Heart-healthy meal [...] white, jie, wheat, raisin, rye, oatmeal, and Sao T[place]an. Tortillas that are neither fried nor made with lard or trans fat. Low-fat rolls, including hotdog and hamburger buns and Singaporean muffins. Biscuits. Muffins. Waffles. Pancakes. Light popcorn. Whole-grain cereals. Flatbread. [place] toast. Pretzels. Breadsticks. Rusks. Low-fat snacks. Low-fat [...] cottage cheese. Whole-milk cheeses, including blue (fredo), Porter Armand, Brie, Nate, Kuwaiti, Havarti, Irish, cheddar, Camembert, and Vonore. Whole or 2% milk that is liquid, [...] that has suet, meat fat, or shortening. [place] butter, hydrogenated oils, palm oil, coconut oil, [...] including vitamins, herbs, eye drops, creams, and cypo-isf-iokdkdr medicines. ??? Any problems you or family [...] 07/13/2006 Document Revised: 03/16/2017 Document Reviewed: 03/06/2014 Blurb Interactive Patient Education ? 2017 [employer]. documented in this encounter Plan of Treatment Not on file documented as of this encounter Visit Diagnoses Not on filedocumented in this encounter Care Teams Revenue Cycle Analyst Relationship Specialty Start Date End Date Jay Howell MD [address] [place] [phone] PCP - General Emergency Medicine 11/12/23 documented as of this encounter
--- OUTSIDE RECORDS SUMMARY | 2025-10-12 21:55 | XMS_ITS | Encounter Summary ---
Author Organization [employer] ([place], [place], [place], [place], [place]) Address [address] [place] [address] Care Team Providers Care Smudger Name Role Phone Jay Howell MD Primary Care Provider [phone] Encounter Details Date Type Department Care Team (Late st Contact Info) Description 06/13/2020 Transcribed Document [facility] [place] [address] [place] [address] ProviderJessie MD [address] [place] [address] Social History Tobacco Use Types Packs/Day Years [...] Tobacco Cues : Verbalizes understanding Activities to Graham With Smoking Urges : Verbalizes understanding Basic [...] on filedocumented in this encounter Care Teams Smudger Relationship Specialty Start Date End Date Jay Howell MD [address] [place] [phone] PCP - General Emergency Medicine 11/12/23 documented as of this encounter
--- OUTSIDE RECORDS SUMMARY | 2025-10-12 21:55 | XMS_ITS | Encounter Summary ---
Author Organization [employer] ([place], [place], [place], [place], [place]) Address [address] [place] [address] Care Team Providers Care Shook Machine Operator Name Role Phone Jay Howell MD Primary Care Provider [phone] Encounter Details Date Type Department Care Team (Late st Contact Info) Description 07/18/2021 Transcribed Document [facility] [place] Family Medicine [address] [place] [address] ProviderJessie MD [address] [place], [place] [phone] Social History Tobacco Use Types Packs/Day Years [...] on filedocumented in this encounter Care Teams Shook Machine Operator Relationship Specialty Start Date End Date Jay Howell MD [address] [place] [phone] PCP - General Emergency Medicine 11/12/23 documented as of this encounter
--- OUTSIDE RECORDS SUMMARY | 2025-10-12 21:55 | XMS_ITS | Encounter Summary ---
Author Organization [employer] ([place], [place], [place], [place], [place]) Address [address] [place] [address] Care Team Providers Care Circus Supervisor Name Role Phone Jay Howell MD Primary Care Provider [phone] Encounter Details Date Type Department Care Team (Late st Contact Info) Description 06/13/2020 Transcribed Document [facility] [place] Family Medicine [address] [place] [address] ProviderJessie MD [address] [place], [place] [phone] Social History Tobacco Use Types Packs/Day Years [...] - 06/13/2020 1:41 EDT Electronically signed by Sivan [facility] Conversion [employer]ner at 02/04/2023 2:14 PM CDT documented in this encounter Plan of Treatment Not on file documented as of this encounter Visit Diagnoses Not on filedocumented in this encounter Care Teams Circus Supervisor Relationship Specialty Start Date End Date Jay Howell MD [address] [place] [phone] PCP - General Emergency Medicine 11/12/23 documented as of this encounter
--- OUTSIDE RECORDS SUMMARY | 2025-10-12 21:55 | XMS_ITS | Encounter Summary ---
Author Organization [employer] ([place], [place], [place], [place], [place]) Address [address] [place] [address] Care Team Providers Care Legal Service Specialist Name Role Phone Jay Howell MD Primary Care Provider [phone] Encounter Details Date Type Department Care Team (Late st Contact Info) Description 12/21/2018 Transcribed Document [facility] [place] [address] [place] [address] ProviderJessie MD [address] [place] [address] Social History Tobacco Use Types Packs/Day Years Used Date Smoking Tobacco: Never Assessed Comments Unknown Sex and Gender Information Value Date Recorded Sex Assigned at Not on file Legal Sex Female 7:30 PM CDT Gender Identity Not on file Sexual Orientation Not on file documented as of this encounter Miscellaneous Notes * [employer]ner Conversion Note - Jessie ProviderMD - 12/21/2018 11:46 AM 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
--- OUTSIDE RECORDS SUMMARY | 2025-10-12 21:55 | XMS_ITS | Encounter Summary ---
Author Organization [employer] ([place], [place], [place], [place], [place]) Address [address] [place] [address] Care Team Providers Care Robotic Welder Name Role Phone Jay Howell MD Primary Care Provider [phone] Encounter Details Date Type Department Care Team (Late st Contact Info) Description 06/13/2020 Transcribed Document [facility] [place] [address] [place] [address] ProviderJessie MD [address] [place] [address] [phone] Social History Tobacco Use Types Packs/Day Years Used Date Smoking Tobacco: Never Assessed Comments Unknown Sex and Gender Information Value Date Recorded Sex Assigned at Not on file Legal Sex Female 7:30 PM CDT Gender Identity Not on file Sexual Orientation Not on file documented as of this encounter Miscellaneous Notes * [employer]ner Conversion Note - Jessie ProviderMD - 06/13/2020 3:18 AM CDT Provider Notification Entered On: 06/13/2020 3:34 EDT Performed On: 06/13/2020 3:18 EDT by PAUL GERBER RN Provider Notification Provider Notified of : Patient Arrival PAUL GERBER RN - 06/13/2020 3:34 EDT documented in this encounter Plan of Treatment Not on file documented as of this encounter Visit Diagnoses Not on filedocumented in this encounter Care Teams Robotic Welder Relationship Specialty Start Date End Date Jay Howell MD [address] [place] [phone] PCP - General Emergency Medicine 11/12/23 documented as of this encounter
--- OUTSIDE RECORDS SUMMARY | 2025-10-12 21:55 | XMS_ITS | Encounter Summary ---
Author Organization [email or web address] ([place], [place], [place], [place], [place]) Address [address] [place] [address] Care Team Providers Care Teacher Tutor Name Role Phone Jay Howell MD Primary Care Provider [phone] Encounter Details Date Type Department Care Team (Late st Contact Info) Description 07/18/2021 Transcribed Document [facility] [place] [address] [place] [address] ProviderJessie MD [address] [place], [place] 508241 Social History Tobacco Use Types Packs/Day Years [...] : Patient Prescriptions Given to Patient : Rogerio Walker RN - 07/18/2021 20:32 EDT Electronically signed by Sivan [facility] Conversion [employer] Install[employer]ner at 02/04/2023 2:17 PM CDT documented in this encounter Plan of Treatment Not on file documented as of this encounter Visit Diagnoses Not on filedocumented in this encounter Care Teams Teacher Tutor Relationship Specialty Start Date End Date Jay Howell MD [address] [place] [phone] PCP - General Emergency Medicine 11/12/23 documented as of this encounter
--- OUTSIDE RECORDS SUMMARY | 2025-10-12 21:55 | XMS_ITS | Encounter Summary ---
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 [address] , [place] [address] Patient Copy Patient Information: Name: SKYLER MONTOYA Current Date: 12/21/2018 11:47:13 : 1940 Patient Address: [address] [place] [id number] Patient Attending Physician: FREDY YAÑEZ MD-CAR Primary Care Provider: TARA CHEN (REF), -MED Primary Care Provider Discharge Diagnosis: CAD (coronary artery disease); DM (diabetes mellitus); Exertional angina; HLD (hyperlipidemia); HTN (hypertension); Hx of CABG; DANTE (obstructive sleep apnea); Paroxysmal A-fib Weight on Admission: 158 lb, 0 oz Comment: Follow-up Instructions: With: Address: When: [facility] [address], [place] [address] Business (1) In 1 month 01/21/2019 With: Address: When: [facility] [address], [address] [place], [place] [id number] Business (1) Within 2 to 5 weeks [...] What foods can I eat? GrainsBreads, including Croatian, white, jie, wheat, raisin, rye, oatmeal, and Djiboutian. Tortillas that are neither fried nor made with lard or trans fat. Low-fat rolls, including hotdog and hamburger buns and Montenegrin muffins. Biscuits. Muffins. Waffles. Pancakes. Light popcorn. Whole-grain cereals. Flatbread. Brighton toast. Pretzels. Breadsticks. Rusks. Low-fat snacks. Low-fat [...] cottage cheese. Whole-milk cheeses, including blue (fredo), Traill Armand, Brie, Nate, Greek, Havarti, Tanzanian, cheddar, Camembert, and Blue Diamond. Whole or 2% milk that is liquid, [...] that has suet, meat fat, or shortening. Sarepta butter, hydrogenated oils, palm oil, coconut oil, [...] 12/25/2012 Document Revised: 03/10/2017 Document Reviewed: 02/04/2015 [employer] Interactive Patient Education ? 2017 [employer]. Groin Site Care Refer to this [...] Document Reviewed: 11/05/2011 ExitCare? Patient Information ?2013 DriftToIt. Angiogram An angiogram, also called angiography, is [...] including vitamins, herbs, eye drops, creams, and mkwu-ypu-vpgfhbq medicines. ??? Any problems you or family [...] 03/06/2014 Elsevier Interactive Patient Education ? 2017 ElseLogrado, Inc. Inc. Medication Leaflets: valsartan (elin LILY foster) [...] valsartan; ?? if you are on a sqx-olnt-twhu; ?? if you are dehydrated; or ?? [...] may report side effects to FDA at 6-588-PSQ-5169. What other drugs will affect valsartan? Tell [...] may interact with valsartan, including prescription and ftdf-djv-cqytskq medicines, vitamins, and herbal products. Not all [...] to ensure that the information provided by Peecho. ('Multum') is accurate, up-to-date, and complete, but no guarantee is made to that effect. Drug information contained herein may be time sensitive. Swapsee information has been compiled for use by healthcare practitioners and consumers in the [place] and therefore [employer] does not warrant that uses outside of the [place] are appropriate, unless specifically indicated otherwise. Swapsee's drug information does not endorse drugs, diagnose patients or recommend therapy. Swapsee's drug information is an informational resource designed [...] with your doctor, nurse or pharmacist. Copyright 7853-5618 [employer]Relayware. Version: 16.05. Revision Date: 09/08/2016. hydralazine (bbo pleitez) Apresoline What is the most important [...] may report side effects to FDA at 7-614-DBP-0890. What other drugs will affect hydralazine? Tell your doctor about all your current medicines and any you start or stop using, especially: ? diazoxide (an injectable blood pressure medication); or ?? an MAO inhibitor--isocarboxazid, linezolid, methylene blue injection, phenelzine, rasagiline, selegiline, tranylcypromine, and others. This list is not complete. Other drugs may interact with hydralazine, including prescription and oeje-ndh-ffditky medicines, vitamins, and herbal products. Not all [...] to ensure that the information provided by Pee[employer]. ('Multum') is accurate, up-to-date, and complete, but no guarantee is made to that effect. Drug information contained herein may be time sensitive. Swapsee information has been compiled for use by healthcare practitioners and consumers in the [place] and therefore [employer] does not warrant that uses outside of the [place] are appropriate, unless specifically indicated otherwise. Swapsee's drug information does not endorse drugs, diagnose patients or recommend therapy. Tus reQRdoss drug information is an informational resource designed [...] effective or appropriate for any given patient. Swapsee does not assume any responsibility for any aspect of healthcare administered with the aid of information Swapsee provides. The information contained herein is not intended to cover all possible uses, directions, precautions, warnings, drug interactions, allergic reactions, or adverse effects. If you have questions about the drugs you are taking, check with your doctor, nurse or pharmacist. Copyright 0247-0686 Peecho. Version: 5.01. Revision Date: 10/26/2017. amlodipine (am CAS Sunshine What is the most important information I [...] may report side effects to FDA at 7-500-CCO-4817. What other drugs will affect amlodipine? Tell your doctor about all your current medicines and any you start or stop using, especially: ? nitroglycerin; ?? simvastatin (Zocor, Simcor, Vytorin); or ?? any other heart or blood pressure medications. This list is not complete. Other drugs may interact with amlodipine, including prescription and rldw-jlq-nbamumr medicines, vitamins, and herbal products. Not all [...] to ensure that the information provided by Peecho. ('Multum') is accurate, up-to-date, and complete, but no guarantee is made to that effect. Drug information contained herein may be time sensitive. Swapsee information has been compiled for use by healthcare practitioners and consumers in the [place] and therefore [employer]see does not warrant that uses outside of the [place] are appropriate, unless specifically indicated otherwise. Tus reQRdoss drug information does not endorse drugs, diagnose patients or recommend therapy. Tus reQRdoss drug information is an informational resource designed [...] effective or appropriate for any given patient. Swapsee does not assume any responsibility for any aspect of healthcare administered with the aid of information Swapsee provides. The information contained herein is not intended to cover all possible uses, directions, precautions, warnings, drug interactions, allergic reactions, or adverse effects. If you have questions about the drugs you are taking, check with your doctor, nurse or pharmacist. Copyright 8511-8710 Peecho. Version: 14.01. Revision Date: 01/24/2017. clopidogrel (kloe [...] may report side effects to FDA at 4-411-ITD-0613. What other drugs will affect clopidogrel? Certain other medicines may increase your risk of bleeding, including aspirin. Avoid taking aspirin unless your doctor tells you to. Tell your doctor about all your other medicines, especially: ? any other medicines to treat or prevent blood clots; ?? a stomach acid field contact person such as omeprazole, Nexium, or Prilosec; ?? an antidepressant; ?? an opioid medication; ?? a blood thinner--warfarin, Coumadin, Jantoven; or ?? NSAIDs (nonsteroidal anti-inflammatory drugs)--ibuprofen (Advil, Motrin), naproxen (Aleve), celecoxib, diclofenac, indomethacin, meloxicam, and others. This list is not complete. Other drugs may affect clopidogrel, including prescription and eore-hdn-ccnfsvm medicines, vitamins, and herbal products. Not all [...] to ensure that the information provided by Pee[employer]. ('Multum') is accurate, up-to-date, and complete, but no guarantee is made to that effect. Drug information contained herein may be time sensitive. Swapsee information has been compiled for use by healthcare practitioners and consumers in the [place] and therefore Swapsee does not warrant that uses outside of the [place] are appropriate, unless specifically indicated otherwise. Tus reQRdoss drug information does not endorse drugs, diagnose patients or recommend therapy. Tus reQRdoss drug information is an informational resource designed [...] effective or appropriate for any given patient. Swapsee does not assume any responsibility for any aspect of healthcare administered with the aid of information Swapsee provides. The information contained herein is not intended to cover all possible uses, directions, precautions, warnings, drug interactions, allergic reactions, or adverse effects. If you have questions about the drugs you are taking, check with your doctor, nurse or pharmacist. Copyright 5974-7791 Peecho. Version: 15.. Revision Date: 08/07/2018. ranolazine (ra FAUSTO justin) [...] may report side effects to FDA at 7-638-KUS-4750. What other drugs will affect ranolazine? Many [...] interact with ranolazine. This includes prescription and wsxb-oiq-vrxuywc medicines, vitamins, and herbal products. Give a [...] to ensure that the information provided by Peecho. ('Multum') is accurate, up-to-date, and complete, but no guarantee is made to that effect. Drug information contained herein may be time sensitive. Swapsee information has been compiled for use by healthcare practitioners and consumers in the [place] and therefore Swapsee does not warrant that uses outside of the [place] are appropriate, unless specifically indicated otherwise. Tus reQRdoss drug information does not endorse drugs, diagnose patients or recommend therapy. Tus reQRdoss drug information is an informational resource designed [...] effective or appropriate for any given patient. Swapsee does not assume any responsibility for any aspect of healthcare administered with the aid of information Swapsee provides. The information contained herein is not intended to cover all possible uses, directions, precautions, warnings, drug interactions, allergic reactions, or adverse effects. If you have questions about the drugs you are taking, check with your doctor, nurse or pharmacist. Copyright 8470-2976 Peecho. Version: .. Revision Date: 12/04/2015. CIGARETTE SMOKING: The facts are clear, cigarette smoking will shorten your life. Smoking can cause many illnesses along the way. As a healthcare provider, we recommend that you stop smoking. Assistance with quitting is available by contacting 0-695-CUFV-NOW. This is a free resource providing counseling, [...] Be sure to sign up for the [email or web address] patient portal, which gives you 09/05 access to your medical information ??? including these discharge instructions ??? using your computer, smartphone, or tablet. Just go to Network Intelligence to get started. Questions? Call . [facility] would like to thank you for allowing us to assist you with your healthcare needs. MICHELE Skaggs JUDY D, (or claim representative) have received the above patient education materials/instructions and have verbalized understanding: Patient Signature _ Date/Time Patient Optical Element Coater Signature (if needed) Date/Time Clinician/Hospital Optical Element Coater Signature (if needed) Date/Time Electronically signed by Sivan, [facility] Conversion College Physics Instructor Cerner at 02/04/2023 2:20 PM CDT documented in this encounter Plan of Treatment Not on file documented as of this encounter Visit Diagnoses Not on filedocumented in this encounter Care Teams Rope Cutter Relationship Specialty Start Date End Date Jay Howell MD [address] [place] [phone] PCP - General Emergency Medicine 11/12/23 documented as of this encounter
--- OUTSIDE RECORDS SUMMARY | 2025-10-12 21:55 | XMS_ITS | Encounter Summary ---
Author Organization [employer] ([place], [place], [place], [place], [place]) Address [address] [place] [address] Care Team Providers Care Fishing Vessel Operator Name Role Phone Jay Howell MD Primary Care Provider [phone] Encounter Details Date Type Department Care Team (Late st Contact Info) Description 06/13/2020 Transcribed Document [facility] [place] [address] [place] [address] ProviderJessie MD [address] [place] [address] Social History Tobacco Use Types Packs/Day Years [...] 06/13/2020 9:00 EDT by Joya Amaya [facility] Phone Call for Consults Consult Phone Call/Page Attempt : First call Consult Reason : chest pain Physician Requesting Consult : SMILEY ZAMORA MD Physician Requested for Consult : FREDY YAÑEZ MD-FLORA Provider Service Notified Name : Cardiology Physician Covering for Consult : FREDY YAÑEZ MD-FLORA Date and Time Call Returned : 06/13/2020 9:31 EDT Joya Amaya [facility] - 06/13/2020 10:00 EDT Electronically signed by Gayle Finnegan Conversion Paper Coating Machine Operator Cerner at 02/04/2023 2:20 PM CDT documented in this encounter Plan of Treatment Not on file documented as of this encounter Visit Diagnoses Not on filedocumented in this encounter Care Teams Fishing Vessel Operator Relationship Specialty Start Date End Date Jay Howell MD [address] [place] [phone] PCP - General Emergency Medicine 11/12/23 documented as of this encounter
--- OUTSIDE RECORDS SUMMARY | 2025-10-12 21:55 | XMS_ITS | Encounter Summary ---
Author Organization [employer] ([place], [place], [place], [place], [place]) Address [address] [place] [address] Care Team Providers Care Finisher Plate Name Role Phone Jay Howell MD Primary Care Provider [phone] Encounter Details Date Type Department Care Team (Late st Contact Info) Description 07/18/2021 Transcribed Document [facility] [place] [address] [place] [address] ProviderJessie MD [address] [place], [place] [phone] Social History Tobacco Use Types Packs/Day Years Used Date Smoking Tobacco: Never Assessed Comments Unknown Sex and Gender Information Value Date Recorded Sex Assigned at Not on file Legal Sex Female 7:30 PM CDT Gender Identity Not on file Sexual Orientation Not on file documented as of this encounter Miscellaneous Notes * Cerner Conversion Note - Jessie ProviderMD - 07/18/2021 8:15 PM CDT Electronically signed by [facility] Conversion Impact Hammer Operator Cerner at 02/04/2023 2:03 PM CDT documented in this encounter Plan of Treatment Not on file documented as of this encounter Visit Diagnoses Not on filedocumented in this encounter Care Teams Finisher Plate Relationship Specialty Start Date End Date Jay Howell MD [address] [place] [phone] PCP - General Emergency Medicine 11/12/23 documented as of this encounter
--- OUTSIDE RECORDS SUMMARY | 2025-10-12 21:55 | XMS_ITS | Encounter Summary ---
Author Organization [employer] ([place], [place], [place], [place], [place]) Address [address] [place] [address] Care Team Providers Care Mitten Stitcher Name Role Phone Jay Howell MD Primary Care Provider [phone] Encounter Details Date Type Department Care Team (Late st Contact Info) Description 07/18/2021 Transcribed Document [facility] [place] [address] [place] [address] ProviderJessie MD [address] [place] [address] Social History Tobacco Use Types [...] Yuen MD - 07/18/2021 8:22 PM CDT [facility] [place], [place] [id number] SKYLER MONTOYA :1940 Visit Time:07/18/2021 Your Visit [...] symptoms worse or different. Where: [address] [phone] (1) Allergies Macrodantin morphine (rash, rash) [...] range between ( 0.0 and 7.0 ) [place] #: 0.50 K/uL -- Normal range between ( 0.16 and 1.00 ) Eos #: 0.00 x10(3)/uL -- Normal range between ( 0.00 and 0.80 ) [place] %: 10.4 % -- Normal range between [...] these instructions at home: Medicines ??? Take hoic-bbn-wkthvdg and prescription medicines only as told by [...] provider. Document Revised: 04/05/2019 Document Reviewed: 04/05/2019 ElseEmpire Genomics Patient Education ?? 2020 [employer]. Emergency Awareness and Preventative Care STROKE is [...] Assistance with quitting is available by contacting 4-200-BLPM-NOW. This is a free resource providing counseling, [...] emergency, radiology, or pathology physicians. Patient Name:MONTOYASKYLER Rajat I have received this information and was given the opportunity to ask questions. Patient/Drum Sander Offbearer Name: Patient/Drum Sander Offbearer Signature: Relationship to Patient: Clinician/Hospital Drum Sander Offbearer Signature: Please Provide a Telephone Number Where You Can Be Reached: Is it Permissible To Leave a Message? Date: documented in this encounter Plan of Treatment Not on file documented as of this encounter Visit Diagnoses Not on filedocumented in this encounter Care Teams Mitten Stitcher Relationship Specialty Start Date End Date Jay Howell MD [address] [place] [phone] PCP - General Emergency Medicine 11/12/23 documented as of this encounter
--- OUTSIDE RECORDS SUMMARY | 2025-10-12 21:55 | XMS_ITS | Data Portability ---
Author Organization BEATRIZ JUANITA Benitez STRATFORD CLOSED Address [address] [facility] [address] [place] [address] Care Team Providers Care Doctor Of Naprapathy Name Role Phone KEVIN RIBERA Primary Care [...] sensitivity. Renal ultrasound to evaluate renal cysts. [email or web address] Not available 06/21/2022 15:32:33 Plan of Treatment Reminders Order Date Submit Date Provider Last Modified By Organization Details Last Modified Time Details Appointments None recorded. Lab culture, urine 2021 022 [facility], [facility], [place], [address], 13:37:11 urinalysis panel, auto 2021 022 [email or web address] [facility] [place] [facility], [address] , [address], [place], [address], 15:32:26 Referral None recorded. Procedures None recorded. Surgeries None recorded. Imaging US, retroperito neum, limited - BILATERAL RENAL US W/O BLADDER CALL SKYLER BAUTISTA AT NO AUTHORIZATI ON REQUIRED. 2021 022 [facility] Centralized Scheduling, [address] , [place], [address], 09:04:59 XR, wrist, 2 view - patient in room 5 2020 021 DBA_BACKF [place]_ 07 Not available 03:33:26 Medication Orders None recorded. Patient TargetsNo targets recorded. Patient Instructions Encounter Date Encounter Id Patient Instructions Last Modified By Organization Details Last Modified Time 06/10/2022 [id number] learning about healthy weight [email or web address] Not available 06/21/2022 15:32:34 Reason for Referral [...] tivit y in progr ess. 06/13 See [place] [facility] Resul t(s) Below ISOLA CAPRI AND SENSI TIVIT Y RESUL TS [place] [facility] 01 Strep . agala ctiae (Grou p B) [place] [facility] 02 Esche manish a coli __ [place] [facility] ORG# 01 ORG# 02 ANTIB IOTIC [...] R Vanco mycin 0.5 S Not Available [facility] [place], [address], 06/13/2022 13:37:11 06/10/20 22 06/10/2022 urina lysis panel , auto Unknown Analyte Clean Catch Not Available [facility] [place] With [address], [place], [address], 06/10/2022 18:27:47 06/10/20 22 06/10/2022 urina lysis panel , auto Unknown Analyte Yellow Not Available [facility] [place] With [address], [place], [address], 06/10/2022 18:27:47 06/10/20 22 06/10/2022 urina lysis panel , auto Unknown Analyte Clear Not Available [facility] With [address] Gisele Delacruz, [place], [address], 06/10/2022 18:27:47 06/10/20 22 06/10/2022 urina lysis panel , auto Unknown Analyte 1.025 Not Available [facility] With [address] Gisele Delacruz, [place], [address], 06/10/2022 18:27:47 06/10/20 22 06/10/2022 urina lysis panel , auto Unknown Analyte 1.003- 1.035 Not Available [facility] With [address] Gisele Delacruz, [place], [address], 06/10/2022 18:27:47 06/10/20 22 06/10/2022 urina lysis panel , auto Unknown Analyte 5.0 Not Available [facility] With [address] Gisele Delacruz, [place], [address], 06/10/2022 18:27:47 06/10/20 22 06/10/2022 urina lysis panel , auto Unknown Analyte 5.0-8. 0 Not Available [facility] With [address], [place], [address], 06/10/2022 18:27:47 06/10/20 22 06/10/2022 urina lysis panel , auto Unknown Analyte 75 Ion/ul (+) Not Available [facility] With [address], [place], [address], 06/10/2022 18:27:47 06/10/20 22 06/10/2022 urina lysis panel , auto Unknown Analyte Negati ve Not Available [facility] With [address], [place], [address], 06/10/2022 18:27:47 06/10/20 22 06/10/2022 urina lysis panel , auto Unknown Analyte Negati ve Not Available [facility] With [address] Gisele Delacruz, [place], [address], 06/10/2022 18:27:47 06/10/20 22 06/10/2022 urina lysis panel , auto Unknown Analyte Negati ve Not Available [facility] With [address] Gisele Delacruz, [place], [address], 06/10/2022 18:27:47 06/10/20 22 06/10/2022 urina lysis panel , auto Unknown Analyte 30 mg/dl (+) Not Available [facility] With [address] Gisele Delacruz, [place], [address], 06/10/2022 18:27:47 06/10/20 22 06/10/2022 urina lysis panel , auto Unknown Analyte Negati ve Not Available [facility] With [address], [place], [address], 06/10/2022 18:27:47 06/10/20 22 06/10/2022 urina lysis panel , auto Unknown Analyte Normal Not Available [facility] With [address] Gisele Delacruz, [place], [address], 06/10/2022 18:27:47 06/10/20 22 06/10/2022 urina lysis panel , auto Unknown Analyte Normal Not Available [facility] With [address] Gisele Delacruz, [place], [address], 06/10/2022 18:27:47 06/10/20 22 06/10/2022 urina lysis panel , auto Unknown Analyte 15 mg/dl (Sm) Not Available [facility] With [address] Jaquez F, [place], [address], 06/10/2022 18:27:47 06/10/20 22 06/10/2022 urina lysis panel , auto Unknown Analyte Negati ve Not Available [facility] [place] With [address] Gisele Delacruz, [place], [address], 06/10/2022 18:27:47 06/10/20 22 06/10/2022 urina lysis panel , auto Unknown Analyte 1 mg/dl Not Available [facility] With [address] Gisele Delacruz, [place], [address], 06/10/2022 18:27:47 06/10/20 22 06/10/2022 urina lysis panel , auto Unknown Analyte Normal 1 mg/dl Not Available [facility] With [address], [place], [address], 06/10/2022 18:27:47 06/10/20 22 06/10/2022 urina lysis panel , auto Unknown Analyte 1 mg/dl (+) Not Available [facility] With [address], [place], [address], 06/10/2022 18:27:47 06/10/20 22 06/10/2022 urina lysis panel , auto Unknown Analyte Negati ve Not Available [facility] [place] With [address], [place], [address], 06/10/2022 18:27:47 06/10/20 22 06/10/2022 urina lysis panel , auto Unknown Analyte Negati ve Not Available [facility] [place] With [address], [place], [address], 06/10/2022 18:27:47 06/10/20 22 06/10/2022 urina lysis panel , auto Unknown Analyte Negati ve Not Available [facility] [place] [facility] [address], [place], [address], 06/10/2022 18:27:47 03/24/20 21 03/24/2021 [facility] [address] [place] [address] Patiyang t Name: SKYLER javed : [birth year] [...] moser MD on 03/24/20 1:59 PM DBA_BACKFIL_ [facility] [place] [address] , [place], [address], 04/22/2022 03:33:26 03/24/20 21 03/24/2021 XR, wrist , 2 view [facility] [address] [place] [address] Patiyang t Name: SKYLER javed : [birth year] [...] moser MD on 03/24/20 3:47 PM DBA_BACKFIL_07 [facility] [place] [address] , [place], [address], 04/22/2022 03:33:26 03/31/20 21 03/31/2021 XR, wrist , 2 view [place] [facility] [address] [place] [address] Patiyang t Name: SKYLER FRANKS Patiyang javed [...] Matt moser MD on 1:41 PM DBA_BACKFIL [facility] [address] , [place], [address], 04/22/2022 03:33:26 04/10/2004/09/2021 XR, wrist , 2 view [facility] [address] [place] [address] Patien t Name: SKYLER javed : [birth year] [...] Matt moser MD on 8:23 AM DBA_BACKFIL [facility] [place] [address] , [place], [address], 04/22/2022 03:33:26 04/30/2004/30/2021 XR, wrist , 2 view [facility] [address] [place] [address] Patiyang javed Name: SKYLER javed : [birth year] [...] Matt moser MD on 1:22 PM DBA_BACKFIL_ [facility] [place] [address] , [place], [address], 04/22/2022 03:33:26 05/28/20 21 05/28/2021 XR, wrist , 2 view [place] [facility] [address] [place] [address] Liban javed Name: SKYLER javed : [birth year] [...] moser MD on 021 1:34 PM DBA_BACKFIL_ [facility] [place] [address] , [place], [address], 04/22/2022 03:33:28 06/15/20 22 06/15/2022 US, retro perit oneum , limit ed No observ ation record ed. [email or web address] [facility] (Radiology) [address] [place] [address] , [place], [address], 07/05/2022 12:06:03 Result Notes Documentation Provider Name and Address Organization Details Recorded Time Xr, Wrist, 2 View : [facility] [address] [place] [address] Patient Name: SKYLER BAUTISTA Patient : 1940 [...] styloid. Interpreted By: Donovan Spivey MD ENY BEDOLAL PA-C [address] [place], [address], [facility] 03/31/2021 14:12:15 Xr, Wrist, 2 [facility] [address] [place] [address] Patient Name: SKYLER BAUTISTA Patient : 1940 [...] Donovan Spivey MD ENY BEDOLLA PA-C [address] [place], [address], [facility] 04/10/2021 08:34:27 Xr, Wrist, 2 [facility] : [facility] [address] [place] [address] Patient Name: SKYLER BAUTISTA Patient : 1940 [...] Donovan Spivey MD ENY BEDOLLA PA-C [address] [place], [address], [facility] 04/30/2021 13:56:36 Xr, Wrist, 2 View : [facility] [place] [address] [place] [address] Patient Name: SKYLER BAUTISTA Patient : 1940 [...] Donovan Spivey MD ENY BEDOLLA PA-C [address] [facility], [address], [facility] 05/28/2021 14:15:54 Problems Name Problem SNOMED Code Status Onset Date Resolution Date Notes Provider Name and Address Organization Details Recorded Time Low back pain 859639375 Active 2014 From Automated Load;Prov ider: Ron, Libby;St atus: Active Not Available [facility] 6 09:10:38 Dysuria 93370437 Active 2014 From Automated Load;Prov ider: Libby Velasquez;St atus: Active Not Available [facility] 6 09:10:38 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 From Automated Load;Prov ider: Libby Velasquez;St atus: Active Not Available [facility] 6 09:10:38 Asthenia 54652924 Active 2015 From Automated Load;Prov ider: Leonardo Mccormack;S tatus: Active Not Available [facility] 6 09:10:38 Headache 30571461 Active 2015 From Automated Load;Prov ider: Leonardo Mccormack;S tatus: Active Not Available [facility] 6 09:10:38 Coronary arteriosc lerosis in [place] artery 86675285726 07 Active 2015 From Automated Load;Prov ider: Leonardo Mccormack;S tatus: Active Not Available [facility] 6 09:10:38 Chest pain 13340937 Active 2015 From Automated Load;Prov ider: Ha Hagan;Sta tus: Active Not Available [facility] 6 09:10:38 Type 2 diabetes mellitus without complicat ion 129703783 Active 2015 From Automated Load;Prov ider: Ha Hagan;Sta tus: Active Not Available [facility] 6 09:10:38 Progressi ve angina 283858770 Active 2015 From Automated Load;Prov ider: Ha Hagan;Sta tus: Active Not Available [facility] 6 09:10:38 Hypertens john disorder 43178529 Active 2015 From Automated Load;Prov ider: Ha Hagan;Sta tus: Active Not Available [facility] 6 09:10:39 Problem Notes None recorded. Procedures Surgical History Date Name Laterality Status Provider Name and Address Organization Details Recorded Time [facility] 09/15/2017 17:15:27 [facility]ole[facility] 09/15/2017 17:15:30 Heart Surgery completed [facility] 09/15/2017 17:15:37 Total hip arthroplasty [facility] 09/15/2017 17:15:51 Imaging Results None recorded. Procedure Notes None recorded. Medical Equipment None Reported. Allergies Allergen ID Allergen Name Allergen Category Reaction Reaction Severity Criticality Documentation Date Start Date Code Code System Note Provider Name and Address Organization Details Recorded Time 719153 morphine sulfate medicatio n Not available Not available Not available 09/10/20162014 34515 RxNorm Comme nt: Creat ed By: Ric Khanna hari Date: 2014 2:07: 08 PM; Not Available Count includes the [facility] 6 02:59:47 598204 Macrobid medicatio n Not available Not available Not available 09/10/20162012 45932 1 RxNorm Comme nt: Creat ed By: Michelle Khanna hari Date: 2012 1:16: 18 PM; Not Available Count includes the [facility] 6 04:55:10 Medications Name Sig Start [...] Updated DateTime 03/31/2021 160.02 cm 27.3 kg/m2 64004.22 g Celsa Andrewston [facility] 03/31/2021 13:36:09 Date Recorded Body height Body mass index (BMI) Body weight Provider Name and Address Organization Details Last Updated DateTime 04/09/2021 160.02 cm 27.1 kg/m2 49626.63 g Brenda Torres [facility] 04/09/2021 14:48:35 Date Recorded Body height Body mass index (BMI) Body weight Provider Name and Address Organization Details Last Updated DateTime 04/30/2021 160.02 cm 27.1 kg/m2 76282.63 g Celsa Mtz [facility] 04/30/2021 13:24:03 Date Recorded Body height Body mass index (BMI) Body weight Provider Name and Address Organization Details Last Updated DateTime 05/28/2021 160.02 cm 27.1 kg/m2 00536.63 g Celsa Rod [facility] 05/28/2021 13:24:49 Date Recorded Body height Body mass index (BMI) Body weight Provider Name and Address Organization Details Last Updated DateTime 06/10/2022 160.02 cm 27.1 kg/m2 04195.63 jana Salgado [facility] 06/10/2022 18:27:02 Social History Question Answer Notes LastModified by Organizat ion Details LastModified Time Tobacco Smoking Status Never Smoker Moo Davalos [facility] 09/15/2017 17:15:15 Marital Status petra Informatio n [...] Clot N Liver Disease N Heart Attack ([place]) N Included as Review of Systems Y Hypertension Y Asthma N Kidney Disease Y Gynecological HistoryNo gynecological history recorded. Obstetrics History GPAL:G 0 P 0 0 0 0 Past Encounters Encounter ID Performer Location Encounter Start Date Encounter Closed Date Diagnosis/Indication Diagnosis SNOMED-CT Code Diagnosis ICD10 Code Diagnosis IMO Codes Diagnosis Note [id number] LIBBY VELASQUEZ MD [facility] [address] [place] [address] ,[place] [address] 09/15/2017 14:34:03 09/21/2017 12:06:33 Recurrent urinary tract infection 067394434 N39.0 Cystic dis ease of kidney 281235330 Q61.9 [id number] LIBBY VELASQUEZ MD [facility] [address] [address] 07/12/2019 14:05:14 08/07/2019 14:32:40 Urinary tract infectious disease 95426591 N39.0 Cyst of kidney 631229991 N28.1 [id number] LIBBY VELASQUEZ MD [facility] [address] ,[place] [address] 02/05/2021 15:05:46 02/06/2021 15:50:44 Recurrent urinary tract infection 557111371 N39.0 Multiple renal cysts 253 658396 N28.1 [id number] MARLENY BEDOLLA PA-C [facility] [address] [place] [address] 03/24/2021 13:16:15 03/24/2021 14:18:29 Closed fracture of distal end of right radius 3406918418 3424872 S52.501A DOI: 03/16/21 - mildly displaced distal radius fracture and displaced ulnar styloid fracture [id number] MARLENY BEDOLLA PA-C [facility] [address] [place] [address] 03/31/2021 13:30:25 03/31/2021 13:55:49 Closed fracture of distal end of right radius 4636481173 0448050 S52.501A DOI: 03/16/21 - mildly displaced distal radius fracture and displaced ulnar styloid fracture [id number] MARLENY BEDOLLA PA-C [facility] [address] [place] [address] 04/09/2021 14:15:17 04/09/2021 15:16:39 Closed fracture of distal end of right radius 0954092442 4188250 S52.501A DOI: 03/16/21 - mildly displaced distal radius fracture and displaced ulnar styloid fracture [id number] MARLENY BEDOLLA PA-C [facility] [address] [place] [address] 04/30/2021 13:02:15 04/30/2021 13:54:16 Closed fracture of distal end of right radius 0249431042 3618228 S52.501A DOI: 03/16/21 - mildly displaced distal radius fracture and displaced ulnar styloid fracture [id number] MARLENY BEDOLLA PA-C [facility] [address] [place] [address] 05/28/2021 13:19:59 05/28/2021 14:27:20 Closed fracture of distal end of right radius 7934578925 5861302 S52.501A DOI: 03/16/21 - mildly displaced distal radius fracture and displaced ulnar styloid fracture [id number] LIBBY VELASQUEZ MD [facility] [address] [place] [address],[place] [address] 06/10/2022 15:14:25 06/23/2022 11:14:33 Urinary tract infectious disease 37051485 N39.0 Cyst of kidney 039523889 N28.1 Health Concerns Section Related Observation LastModified by Organization Detai ls LastModified Time None Recorded Concern Status LastModified by Organization Details LastModified Time None Recorded Advance Directives Directive None Recorded Payers Insurance Date Sequence Insurance Name Policy Number Policy Rosen Covered Member ID Rosen Member ID Guarantor Name 01/15/2025 2 [employer] (MEDICARE SUPPLEMENT) Skyler Earl Jan [id number] Skyler Earl Jan 01/15/2025 1 [place] Skyler Ocampolivan [id number] Skyler Earl Jan Notes Date Note [...] No Currently employed?: Retired MARLENY BEDOLLA PA-C [address] [place] [address], [phone], [facility] 04/01/2021 13:35:20 04/09/2021 text/html Patient returns today for fracture alignment recheck. She denies pain. Primary Care Physician: Dr. Moeller Hand dominance: Right Location: Right Wrist Pain level: 0 /10 Date of injury:03/16/21 Previous upper extremity surgery? No Currently employed?: Retired MARLENY BEDOLLA PA-C [address] [place] [address], [address], [facility] 04/14/2021 08:42:55 04/30/2021 text/html Patient returns today for fracture recheck. She reports continued compliance with casting restrictions and denies pain at this time. Primary Care Physician: Dr Moeller Hand dominance: Right Location: Right Wrist Pain level: 0 /10 Date of injury: 03/16/2021 Duration: 6 week(s) Recent Surgery: No Previous upper extremity surgery? No Currently employed?: Retired MARLENY BEDOLLA PA-C [address] [place] [address], [address], [facility] 05/05/2021 13:57:51 05/28/2021 text/html Patient returns today for fracture recheck. She denies pain and is pleased with significant improvement in function. Primary Care Physician: Dr Moeller Hand dominance: Right Location: Right Wrist Pain level: 0 /10 Date of injury: 03/16/2021 Duration: 10 week(s) Recent Surgery: No Previous upper extremity surgery? No Currently employed?: Retired MARLNEY BEDOLLA PA-C [address] [place] [address], [address], [facility] 05/28/2021 14:17:52 06/10/2022 text/html 81-year-old female in the office for follow-up evaluation of recurrent urinary infections. She has history of renal cystic disease. She has bilateral back pain, left equal to right. She voids 2-3 times daily with nocturia up to 3 times nightly. She denies hesitancy. She has occasional dysuria.She has been seeing Dr. Macdonald at urology. LIBBY VELASQUEZ MD [address] [place] [address] [place], [address], [place] [facility] 06/21/2022 15:38:34 OBGyn Episode No OBEpisode recorded.
--- OUTSIDE RECORDS SUMMARY | 2025-10-12 21:55 | XMS_ITS | Encounter Summary ---
Author Organization [employer] ([place], [place], [place], [place], [place]) Address [address] [place] [address] Care Team Providers Care Medical Technicians Name Role Phone Jay oHwell MD Primary Care Provider [phone] Encounter Details Date Type Department Care Team (Late st Contact Info) Description 06/13/2020 Transcribed Document [facility] Family Medicine [address] [place] [address] ProviderJessie MD [address] [place] [address]101 Social History Tobacco Use Types Packs/Day Years Used Date Smoking Tobacco: Never Assessed Comments Unknown Sex and Gender Information Value Date Recorded Sex Assigned at Not on file Legal Sex Female 7:30 PM CDT Gender Identity Not on file Sexual Orientation Not on file documented as of this encounter Miscellaneous Notes * Cerner Conversion Note - Jessie ProviderMD - 06/13/2020 10:21 AM CDT Advance [...] Ms. Montoya reported she would call for software engineering specialist if/when she decides to complete one FARHANA PATEL - 06/13/2020 12:16 EDT documented in this encounter Plan of Treatment Not on file documented as of this encounter Visit Diagnoses Not on filedocumented in this encounter Care Teams Medical Technicians Relationship Specialty Start Date End Date Jay Howell MD [address] [place] [phone] PCP - General Emergency Medicine 11/12/23 documented as of this encounter
--- OUTSIDE RECORDS SUMMARY | 2025-10-12 21:55 | XMS_ITS | Encounter Summary ---
Author Organization [employer] ([place], [place], [place], [place], [place]) Address [address] [place] [address] Care Team Providers Care National Business Director Name Role Phone Jay Howell MD Primary Care Provider [phone] Encounter Details Date Type Department Care Team (Late st Contact Info) Description 06/13/2020 Transcribed Document [facility] Family Medicine [address] [place] [address] ProviderJessie MD [address] [place], [place] [id number] Social History Tobacco Use Types Packs/Day Years Used Date Smoking Tobacco: Never Assessed Comments Unknown Sex and Gender Information Value Date Recorded Sex Assigned at Not on file Legal Sex Female 7:30 PM CDT Gender Identity Not on file Sexual Orientation Not on file documented as of this encounter Miscellaneous Notes * Cerner Conversion Note - Jessie ProviderMD - 06/13/2020 5:00 PM CDT Chart [...] on filedocumented in this encounter Care Teams National Business Director Relationship Specialty Start Date End Date Jay Howell MD [address] [place] [phone] PCP - General Emergency Medicine 11/12/23 documented as of this encounter
[2025-10-12 21:56] LABS: Hematocrit 27.7 % (37.0-47.0); Hemoglobin 9.2 g/dL (12.2-16.2); Immature Granulocytes % 0.3 %; Mean Corpuscular HGB Conc 33.2 g/dL (31.8-35.4); Mean Corpuscular Hemoglobin 39.1 pg (27.0-31.2); Mean Corpuscular Volume 117.9 fl (81-99); Nucleated Red Blood Cells % 0 %; Platelet Count 104 K/mm3 (142-424); Red Blood Count 2.35 M/mm3 (4.20-5.40); Red Cell Distribution Width-SD 62.5 fL; White Blood Count 3.8 K/mm3 (4.8-10.8)
--- OUTSIDE RECORDS SUMMARY | 2025-10-12 21:56 | XMS_ITS | Encounter Summary ---
Author Organization [employer] ([place], [place], [place], [place], [place]) Address [address] [place] [address] Care Team Providers Care Junior Accountant Bookkeeper Name Role Phone Jay Howell MD Primary Care Provider [phone] Encounter Details Date Type Department Care Team (Late st Contact Info) Description 08/23/2020 Transcribed Document [facility] [place] [address] [place] [address] ProviderJessie MD [address] [place] [phone] Social History Tobacco Use Types Packs/Day Years Used Date Smoking Tobacco: Never Assessed Comments Unknown Sex and Gender Information Value Date Recorded Sex Assigned at Not on file Legal Sex Female 7:30 PM CDT Gender Identity Not on file Sexual Orientation Not on file documented as of this encounter Miscellaneous Notes * Cerner Conversion Note - Jessie Yuen MD - 08/23/2020 1:35 AM ASSISTANT FOOD SERVICE DIRECTOR ED Discharge Entered On: 08/23/2020 2:08 EST [...] - 08/23/2020 2:07 EST Electronically signed by Sivan [facility] Conversion Permastone Installer Cerner at 02/04/2023 2:21 PM CDT documented in this encounter Plan of Treatment Not on file documented as of this encounter Visit Diagnoses Not on filedocumented in this encounter Care Teams Junior Accountant Bookkeeper Relationship Specialty Start Date End Date Jay Howell MD [address] [place] [phone] PCP - General Emergency Medicine 11/12/23 documented as of this encounter
--- OUTSIDE RECORDS SUMMARY | 2025-10-12 21:56 | XMS_ITS | Encounter Summary ---
Author Organization [employer] ([place], [place], [place], [place], [place]) Address [address] [place] [address] Care Team Providers Care Report Programmer Name Role Phone Jay Howell MD Primary Care Provider [phone] Encounter Details Date Type Department Care Team (Late st Contact Info) Description 06/14/2020 Transcribed Document [facility] [place] [address] [place] [address] ProviderJessie MD [address] [place], [place] [address] Social History Tobacco Use Types Packs/Day Years Used Date Smoking Tobacco: Never Assessed Comments Unknown Sex and Gender Information Value Date Recorded Sex Assigned at Not on file Legal Sex Female 7:30 PM CDT Gender Identity Not on file Sexual Orientation Not on file documented as of this encounter Miscellaneous Notes * Cerner Conversion Note - Jessie ProviderMD - 06/14/2020 2:15 PM CDT Stroke/Warfarin [...] on filedocumented in this encounter Care Teams Report Programmer Relationship Specialty Start Date End Date Jay Howell MD [address] [place] [phone] PCP - General Emergency Medicine 11/12/23 documented as of this encounter
--- OUTSIDE RECORDS SUMMARY | 2025-10-12 21:56 | XMS_ITS | Encounter Summary ---
Author Organization [employer] ([place], [place], [place], [place], [place]) Address [address] [place] [address] Care Team Providers Care Usability Architect Name Role Phone Jay Howell MD Primary Care Provider [phone] Encounter Details Date Type Department Care Team (Late st Contact Info) Description 08/27/[address] [facility] [place] [address] [place] [address] ProviderJessie MD [address] [place] [address] Social History Tobacco Use Types Packs/Day Years Used Date Smoking Tobacco: Never Assessed Comments Unknown Sex and Gender Information Value Date Recorded Sex Assigned at Not on file Legal Sex Female 7:30 PM CDT Gender Identity Not on file Sexual Orientation Not on file documented as of this encounter Miscellaneous Notes * Cerner Conversion Note - Jessie Yuen MD - 08/27/2020 8:20 AM PROCESSING MGR Patient: SKYLER MONTOYA Age: 79 years [...] 08/[address] Verde: *Operation RIGHT WOMENS VOLLEYBALL COACH access - ultrasound guided Aortogram with LEFT lower extremity run-off LEFT PT angioplasty (2.5-7z698nb Nanocross) LEFT peroneal angioplasty (2.5-6k453kl Nanocross) RIGHT WOMENS VOLLEYBALL COACH closure (Angioseal) LEFT leg debridement 08/27/20 seen [...] Level 8.8 mg/dL 08/27/2020 03:40 MICRO: ACC: [id number] ORDER: Culture Anaerobic DATE: 08/26/2020 13:56 SOURCE: Surgical Swab SITE: Leg Lower L Reports Pre 08/27/2020 07:47 Culture in progress == ACC: [id number] ORDER: Culture Wound and Stain DATE: 08/26/2020 15:23 SOURCE: Surgical Swab SITE: Leg Lower L Reports Pre 08/27/2020 07:14 No growth GS 08/26/2020 18:13 Few White Blood Cells No organisms seen. == ACC: [id number] ORDER: Culture Fungus DATE: 08/26/2020 13:56 SOURCE: Surgical Swab SITE: Leg Lower L Reports SINDI 08/26/2020 16:09 No Fungal elements seen == ACC: [id number] ORDER: Culture Wound and Stain DATE: 08/25/2020 05:00 SOURCE: Wound SITE: Leg Lower L Reports Pre 08/26/2020 06:23 No growth GS 08/25/2020 07:26 No organisms seen. Few White Blood Cells Rare epithelial cells == ACC: [id number] ORDER: Culture Blood DATE: 08/25/2020 05:01 SOURCE: Blood SITE: Reports Pre 08/27/2020 06:01 No growth at 2 days. Pre 08/26/2020 06:01 No growth at 1 day. Pre 08/25/2020 23:02 Culture less than 24 Hrs old == ACC: [id number] ORDER: Culture Blood DATE: 08/25/2020 05:01 SOURCE: Blood SITE: Reports Pre 08/27/2020 06:01 No growth at 2 days. Pre 08/26/2020 06:01 No growth at 1 day. Pre 08/25/2020 23:02 Culture less than 24 Hrs old == Radiology Results (Last 48 hours) [id number] -- 08/25/2020 05:53 MRI Spine Lumbar WO [...] on filedocumented in this encounter Care Teams Usability Architect Relationship Specialty Start Date End Date Jay Howell MD [address] [place] [phone] PCP - General Emergency Medicine 11/12/23 documented as of this encounter
--- OUTSIDE RECORDS SUMMARY | 2025-10-12 21:56 | XMS_ITS | Encounter Summary ---
Author Organization [employer] ([place], [place], [place], [place], [place]) Address [address] [place] [address] Care Team Providers Care Foxer Name Role Phone Jay Howell MD Primary Care Provider [phone] Encounter Details Date Type Department Care Team (Late st Contact Info) Description 06/13/2020 Transcribed Document [facility] [place] [address] [place] [address] ProviderJessie MD [address] [place] [address] Social History Tobacco Use Types Packs/Day Years [...] Ministry Provided to : Patient, Family/Significant other Uatsdin Preference : [employer]ism FARHANA PATEL - 06/13/2020 12:13 EDT Interventions Advance Directive Information Provided : Yes Advance Directive Comment : Discussed Living Will; Ms. Montoya requested information only; Gave copy of Personal Choices booklet; Ms. Montoya reported she would call for mobile equipment servicer if/when she decides to complete one Emotional Support : Empathic/Engaged listening, Family/Significant other supported, Feelings expressed, Information provided Spiritual and Uatsdin : Spiritual/Uatsdin support provided Change, Adjustment and Loss : [...] - 06/13/2020 12:13 EDT Electronically signed by [facility] Conversion Transitional Studies Instructor Cerner at 02/04/2023 2:00 PM CDT documented in this encounter Plan of Treatment Not on file documented as of this encounter Visit Diagnoses Not on filedocumented in this encounter Care Teams Foxer Relationship Specialty Start Date End Date Jay Howell MD [address] [place] [phone] PCP - General Emergency Medicine 11/12/23 documented as of this encounter
--- OUTSIDE RECORDS SUMMARY | 2025-10-12 21:56 | XMS_ITS | Encounter Summary ---
Author Organization [employer] ([place], [place], [place], [place], [place]) Address [address] [place] [address] Care Team Providers Care Can Reforming Machine Operator Name Role Phone Jay Howell MD Primary Care Provider [phone] Encounter Details Date Type Department Care Team (Late st Contact Info) Description 08/23/2020 Transcribed Document [facility] [place] [address] [place] [address] ProviderJessie MD [address] [place] [address] Social History Tobacco Use Types [...] Jessie Yuen MD - 08/23/2020 1:05 AM FAMILY MEDICINE CHAIR [facility] [place] [address] SKYLER MONTOYA :1940 Visit Time:08/22/2020 Your Visit [...] REDNESS, SWELLING Where: [address] [place], [place] [address]- Business (1) Allergies Macrodantin morphine (rash, rash) nitrofurantoin (blisters, blisters) Immunizations This Visit No Immunizations Found Medications What How Much When Instructions Next Dose acetaminophen-hydrocodone ([place] 7.5 mg-325 mg oral tablet) 1 Tablet(s) [...] range between ( 0.0 and 7.0 ) [place] #: 0.71 K/uL -- Normal range between ( 0.16 and 1.00 ) Eos #: 0.15 x10(3)/uL -- Normal range between ( 0.00 and 0.80 ) [place] %: 10.1 % -- Normal range between [...] these instructions at home: Medicines ??? Take nrxk-rmb-xaxedho and prescription medicines only as told by [...] and water are not available, use hand museum tour guide. ??? Change your dressing and packing as [...] 12/25/2012 Document Revised: 09/03/2019 Document Reviewed: 09/03/2019 CrossReader Patient Education ?? 2020 [employer]. Skin Abscess A skin abscess is an [...] these instructions at home: Medicines ??? Take nssv-htc-dimsjyb and prescription medicines only as told by [...] and water are not available, use hand museum tour guide. ??? Check your abscess every day for [...] 07/13/2006 Document Revised: 01/24/2020 Document Reviewed: 11/16/2018 ElseNet[employer] Patient Education ?? 2020 [employer]. Emergency Awareness and Preventative Care STROKE is [...] Assistance with quitting is available by contacting 0-819-LZRK-NOW. This is a free resource providing counseling, [...] was given the opportunity to ask questions. Patient/Secondary Teacher Name: Patient/Secondary Teacher Signature: Relationship to Patient: Clinician/Hospital Secondary Teacher Signature: Please Provide a Telephone Number Where You Can Be Reached: Is it Permissible To Leave a Message? Date: documented in this encounter Plan of Treatment Not on file documented as of this encounter Visit Diagnoses Not on filedocumented in this encounter Care Teams Can Reforming Machine Operator Relationship Specialty Start Date End Date Jay Howell MD [address] [place] [phone] PCP - General Emergency Medicine 11/12/23 documented as of this encounter
--- OUTSIDE RECORDS SUMMARY | 2025-10-12 21:56 | XMS_ITS | Encounter Summary ---
Author Organization [employer] ([place], [place], [place], [place], [place]) Address [address] [place] [address] Care Team Providers Care Power Ballast Machine Operator Name Role Phone Jay Howell MD Primary Care Provider [phone] Encounter Details Date Type Department Care Team (Late st Contact Info) Description 03/03/2021 Transcribed Document [facility] [place] [address] [place] [address] ProviderJessie MD [address] [place], [place] [address]131 Social History Tobacco Use Types Packs/Day Years [...] Urgent Tracking Group : [facility] ED Viri Gonsales RN - 03/03/2021 16:04 [...] 16:07:23 EDT) Problems(Active) Apnea, sleep (SNOMED CT :898259725 ) Name of Problem: Apnea, sleep ; Recorder: JUAN LUIS GIL RN; Confirmation: Confirmed ; Classification: Medical ; Code: 928278171 ; Contributor System: PowerChart ; Last Updated: 11/12/2014 10:12 EST ; Life Cycle Date: 11/12/2014 ; Life Cycle Status: Active ; Vocabulary: SNOMED CT Arthritis (SNOMED CT :3613292 ) Name of Problem: Arthritis ; Recorder: KENYON CHAMBERS RN; Confirmation: Confirmed ; Classification: Medical ; Code: 5694862 ; Contributor System: PowerChart ; Last Updated: 04/10/2016 8:04 EDT ; Life Cycle Date: 08/13/2013 ; Life Cycle Status: Active ; Vocabulary: SNOMED CT Atrial fibrillation with RVR (SNOMED CT :3623122432 ) Name of Problem: Atrial fibrillation with RVR ; Recorder: SANG RICO APRN; Confirmation: Confirmed ; Classification: Medical ; Code: 7833814770 ; Contributor System: PowerChart ; Last Updated: 04/10/2016 8:05 EDT ; Life Cycle Date: 04/10/2016 ; Life Cycle Status: Active ; Responsible Provider: SANG RICO APRN; Vocabulary: SNOMED CT Blood clot (SNOMED CT :807416571 ) Name of Problem: Blood clot ; Recorder: KENYON CHAMBERS RN; Confirmation: Confirmed ; Classification: Patient Stated ; Code: 164134900 ; Contributor System: PowerChart ; Last Updated: [...] Vocabulary: Patient Care Chest pain (SNOMED CT :84753896 ) Name of Problem: Chest pain ; Recorder: SANG RICO APRN; Confirmation: Complaint of ; Classification: Medical ; Code: 37906997 ; Contributor System: PowerChart ; Last Updated: 04/10/2016 8:05 EDT ; Life Cycle Status: Active ; Responsible Provider: SANG RICO APRN; Vocabulary: SNOMED CT Chronic anticoagulation (SNOMED CT :765824374 ) Name of Problem: Chronic anticoagulation ; Recorder: SANG RICO APRN; Confirmation: Confirmed ; Classification: Medical ; Code: 925049450 ; Contributor System: PowerChart ; Last Updated: 04/10/2016 8:05 EDT ; Life Cycle Date: 04/10/2016 ; Life Cycle Status: Active ; Responsible Provider: SANG RICO APRN; Vocabulary: SNOMED CT Clotting disorder (SNOMED CT :272641938 ) Name of Problem: Clotting disorder ; Recorder: KENYON CHAMBERS RN; Confirmation: Confirmed ; Classification: Patient Stated ; Code: 682143989 ; Contributor System: PowerChart ; Last Updated: 03/28/2014 19:29 EDT ; Life Cycle Date: 08/13/2013 ; Life Cycle Status: Active ; Vocabulary: SNOMED CT COPD (SNOMED CT :83974458 ) Name of Problem: COPD ; Recorder: KENYON CHAMBERS RN; Confirmation: Confirmed ; Classification: Medical ; Code: 34422079 ; Contributor System: PowerChart ; Last Updated: 04/10/2016 8:03 EDT ; Life Cycle Date: 08/13/2013 ; Life Cycle Status: Active ; Vocabulary: SNOMED CT Coronary artery disease (SNOMED CT :9671644376 ) Name of Problem: Coronary artery disease ; Recorder: KENYON CHAMBERS RN; Confirmation: Confirmed ; Classification: Medical ; Code: 8736134457 ; Contributor System: PowerChart ; Last Updated: 04/10/2016 8:03 EDT ; Life Cycle Date: 08/13/2013 ; Life Cycle Status: Active ; Vocabulary: SNOMED CT Diabetes mellitus (SNOMED CT :173350759 ) Name of Problem: Diabetes mellitus ; Recorder: KENYON CHAMBERS RN; Confirmation: Confirmed ; Classification: Medical ; Code: 019292424 ; Contributor System: PowerChart ; Last Updated: 04/10/2016 8:04 EDT ; Life Cycle Date: 08/13/2013 ; Life Cycle Status: Active ; Vocabulary: SNOMED CT Emphysema (SNOMED CT :369710839 ) Name of Problem: Emphysema ; Recorder: JUAN LUIS GIL RN; Confirmation: Confirmed ; Classification: Medical ; Code: 134536520 ; Contributor System: PowerChart ; Last Updated: 11/12/2014 10:11 EST ; Life Cycle Date: 11/12/2014 ; Life Cycle Status: Active ; Vocabulary: SNOMED CT GERD - Gastro-esophageal reflux disease (SNOMED CT :3571200609 ) Name of Problem: GERD - Gastro-esophageal reflux disease ; Recorder: KENYON CHAMBERS RN; Confirmation: Confirmed ; Classification: Medical ; Code: 2695883606 ; Contributor System: PowerChart ; Last Updated: 04/10/2016 8:03 EDT ; Life Cycle Date: 08/13/2013 ; Life Cycle Status: Active ; Vocabulary: SNOMED CT Glaucoma (Patient Care : ) Name of Problem: Glaucoma ; Recorder: KENYON CHAMEBRS RN; Confirmation: Confirmed ; Classification: Medical ; Contributor System: PowerChart ; Last Updated: 04/10/2016 8:03 EDT ; Life Cycle Date: 08/13/2013 ; Life Cycle Status: Active ; Vocabulary: Patient Care High blood pressure (SNOMED CT :10028590 ) Name of Problem: High blood pressure ; Recorder: KENYON CHAMBERS RN; Confirmation: Confirmed ; Classification: Medical ; Code: 86850050 ; Contributor System: PowerChart ; Last Updated: 04/10/2016 8:03 EDT ; Life Cycle Date: 08/13/2013 ; Life Cycle Status: Active ; Vocabulary: SNOMED CT History of obstructive sleep apnea (IMO :01323082 ) Name of Problem: History of obstructive sleep apnea ; Recorder: SYSTEM, SYSTEM; Confirmation: Confirmed ; Classification: Medical ; Code: 60440059 ; Last Updated: 08/25/2020 18:21 EST ; Life Cycle Date: 08/25/2020 ; Life Cycle Status: Active ; Vocabulary: IMO Hx of pulmonary embolus (SNOMED CT :052056205 ) Name of Problem: Hx of pulmonary embolus ; Recorder: SANG RICO APRN; Confirmation: Confirmed ; Classification: Medical ; Code: 476033495 ; Contributor System: PowerChart ; Last Updated: 04/10/2016 8:05 EDT ; Life Cycle Date: 04/10/2016 ; Life Cycle Status: Active ; Responsible Provider: SANG RICO APRN; Vocabulary: SNOMED CT Hyperlipidemia (SNOMED CT :95560231 ) Name of Problem: Hyperlipidemia ; Recorder: KENYON CHAMBERS RN; Confirmation: Confirmed ; Classification: Medical ; Code: 41414838 ; Contributor System: Circular EnergyChart ; Last Updated: 04/10/2016 8:03 EDT ; Life Cycle Date: 08/13/2013 ; Life Cycle Status: Active ; Vocabulary: SNOMED CT Multiple renal cysts (SNOMED CT :146142251 ) Name of Problem: Multiple renal cysts ; Recorder: KENYON CHAMBERS RN; Confirmation: Confirmed ; Classification: Medical ; Code: 121288354 ; Contributor System: Circular EnergyChart ; Last Updated: 04/10/2016 8:04 EDT ; Life Cycle Date: 08/13/2013 ; Life Cycle Status: Active ; Vocabulary: SNOMED CT Stented coronary artery (SNOMED CT :4542213534 ) Name of Problem: Stented coronary artery ; Recorder: KENYON CHAMBERS RN; Confirmation: Confirmed ; Classification: Medical ; Code: 7274004768 ; Contributor System: Circular EnergyChart ; Last Updated: 04/10/2016 8:03 EDT ; Life Cycle Date: 08/13/2013 ; Life Cycle Status: Active ; Vocabulary: SNOMED CT Diagnoses(Active) Hip pain-swelling Date: 03/03/2021 ; Diagnosis Type: Reason For Visit ; Confirmation: Complaint of ; Clinical Dx: Hip pain-swelling ; Classification: Medical ; Clinical Service: Emergency medicine ; Code: PNED ; Probability: 0 ; Diagnosis Code: [id number] ED Height and Weight Height Source : Stated Height Entry Format : [place] Height, Feet : 5 ft(Converted to: 152 cm, 60 Inch) Height, Inches : 3 Inch(Converted to: 0 ft 3 Inch, 7.62 cm) Clinical Height : 160.02 cm Weight Source, ED : Critical estimated dosing weight Weight Entry Format : [place] Weight, Pounds : 154 lb Clinical Dosing Weight : 70 kg Body Surface Area (BSA) : 1.73 m2 Body Mass Index : 27.3 kg/m2 (HI) [place] Body Weight (IBW) : 52.02 kg Viri Gonsales RN - 03/03/2021 16:04 EDT documented in this encounter Plan of Treatment Not on file documented as of this encounter Visit Diagnoses Not on filedocumented in this encounter Care Teams Power Ballast Machine Operator Relationship Specialty Start Date End Date Jay Howell MD [address] [place] [phone] PCP - General Emergency Medicine 11/12/23 documented as of this encounter
--- OUTSIDE RECORDS SUMMARY | 2025-10-12 21:56 | XMS_ITS | Encounter Summary ---
Author Organization [employer] ([place], [place], [place], [place], [place]) Address [address] [place] [address] Care Team Providers Care Facilities Administrator Name Role Phone Jay Howell MD Primary Care Provider [phone] Encounter Details Date Type Department Care Team (Late st Contact Info) Description 08/27/2020 Transcribed Document [facility] [place] Family Medicine [address] [place] [address] ProviderJessie MD [address] [place] [id number] Social History Tobacco Use Types Packs/Day Years Used Date Smoking Tobacco: Never Assessed Comments Unknown Sex and Gender Information Value Date Recorded Sex Assigned at Not on file Legal Sex Female 7:30 PM CDT Gender Identity Not on file Sexual Orientation Not on file documented as of this encounter Miscellaneous Notes * Cerner Conversion Note - Jessie ProviderMD - 08/27/2020 5:00 PM CUSTOMER RETENTION SPECIALIST Chart Check - Review Order Profile Entered On: 08/27/2020 19:43 EST Performed On: 08/27/2020 17:00 EST by JOAO ROSA RN Chart Check Powerplans Initiated/Discontinued as Appropriate : Yes All Active Orders Reviewed : Yes JOAO ROSA RN - 08/27/2020 19:43 EST Electronically signed by Sivan [facility] Conversion Cabinet Abrasive Sandblaster Cerner at 02/04/2023 2:08 PM CDT documented in this encounter Plan of Treatment Not on file documented as of this encounter Visit Diagnoses Not on filedocumented in this encounter Care Teams Facilities Administrator Relationship Specialty Start Date End Date Jay Howell MD [address] [place] [phone] PCP - General Emergency Medicine 11/12/23 documented as of this encounter
--- OUTSIDE RECORDS SUMMARY | 2025-10-12 21:56 | XMS_ITS | Encounter Summary ---
Author Organization [employer] ([place], [place], [place], [place], [place]) Address [address] [place] [address] Care Team Providers Care Dye Room Helper Name Role Phone Jay Howell MD Primary Care Provider [phone] Encounter Details Date Type Department Care Team (Late st Contact Info) Description 06/13/2020 Transcribed Document [facility] [place] Medicine [address] [place] [address] ProviderJessie MD [address] [place], [place] [address] Social History Tobacco Use Types Packs/Day Years Used Date Smoking Tobacco: Never Assessed Comments Unknown Sex and Gender Information Value Date Recorded Sex Assigned at Not on file Legal Sex Female 7:30 PM CDT Gender Identity Not on file Sexual Orientation Not on file documented as of this encounter Miscellaneous Notes * Cerner Conversion Note - Jessie ProviderMD - 06/13/2020 5:00 AM CDT Chart Check - Review Order Profile Entered On: 06/13/2020 6:12 EDT Performed On: 06/13/2020 5:00 EDT by PAUL GERBER RN Chart Check Powerplans Initiated/Discontinued as Appropriate : Yes All Active Orders Reviewed : Yes PAUL GERBER RN - 06/13/2020 6:12 EDT Electronically signed by Sivan [facility] Conversion Software Engineer Intern Cerner at 02/04/2023 2:05 PM CDT documented in this encounter Plan of Treatment Not on file documented as of this encounter Visit Diagnoses Not on filedocumented in this encounter Care Teams Dye Room Helper Relationship Specialty Start Date End Date Jay Howell MD [address] [place] [phone] PCP - General Emergency Medicine 11/12/23 documented as of this encounter
--- OUTSIDE RECORDS SUMMARY | 2025-10-12 21:56 | XMS_ITS | Encounter Summary ---
Author Organization [employer] ([place], [place], [place], [place], [place]) Address [address] [place] [address] Care Team Providers Care Director Of Officiating Name Role Phone Jay Howell MD Primary Care Provider [phone] Encounter Details Date Type Department Care Team (Late st Contact Info) Description 08/22/2020 Transcribed Document [facility] [place] Family Medicine [address] [place] [address] ProviderJessie MD [address] [place], [place] [address] Social History Tobacco Use Types Packs/Day Years Used Date Smoking Tobacco: Never Assessed Comments Unknown Sex and Gender Information Value Date Recorded Sex Assigned at Not on file Legal Sex Female 7:30 PM CDT Gender Identity Not on file Sexual Orientation Not on file documented as of this encounter Miscellaneous Notes * Cerner Conversion Note - Jessie ProviderMD - 08/22/2020 8:49 PM FARM MANAGEMENT TEACHER ED Assessment Entered On: 08/23/2020 1:11 EST [...] EST Integumentary Assessment Integumentary Assessment WDL : WDSophie with exceptions Integumentary Assessment Comment : pt with hematoma on left lower leg, red swollen, PMS intact with movement limited r/t pain Oumou Augustine RN - 08/23/2020 1:08 EST documented in this encounter Plan of Treatment Not on file documented as of this encounter Visit Diagnoses Not on filedocumented in this encounter Care Teams Director Of Officiating Relationship Specialty Start Date End Date Jay Howell MD [address] [place] [phone] PCP - General Emergency Medicine 11/12/23 documented as of this encounter
--- OUTSIDE RECORDS SUMMARY | 2025-10-12 21:56 | XMS_ITS | Encounter Summary ---
Author Organization [employer] ([place], [place], [place], [place], [place]) Address [address] [place] [address] Care Team Providers Care Telecommunications Specialist Name Role Phone Jay Howell MD Primary Care Provider [phone] Encounter Details Date Type Department Care Team (Late st Contact Info) Description 08/27/2020 Transcribed Document [facility] [place] [address] [place] [address] ProviderJessie MD [address] [place] [address] [phone] Social History Tobacco Use Types Packs/Day Years Used Date Smoking Tobacco: Never Assessed Comments Unknown Sex and Gender Information Value Date Recorded Sex Assigned at Not on file Legal Sex Female 7:30 PM CDT Gender Identity Not on file Sexual Orientation Not on file documented as of this encounter Miscellaneous Notes * Cerner Conversion Note - Jessie ProviderMD - 08/27/2020 3:14 PM PASSENGER SERVICE SUPERVISOR Evaluation, Occupational Therapy Entered On: 08/29/2020 13:30 [...] BOCANEGRA, STUDENT-OCCUPATIONAL THERAPIST - 08/29/2020 13:19 EST Self [...] Occupational Therapy : Verbalizes understanding ANAY BOCANEGRA STUDENTOCCUPATIONAL THERAPIST - 08/29/2020 13:19 EST Teaching/Learning Assessment Barriers To Learning : None evident Individuals Taught : Patient Readiness to Learn : Cooperative Baseline Knowledge of Topic : Limited ANAY BOCANEGRA STUDENT-OCCUPATIONAL THERAPIST - 08/29/2020 13:19 EST Readiness to Learn : Explanation ANAY BOCANEGRA STUDENT-OCCUPATIONAL THERAPIST - 08/29/2020 13:40 EST Indication Assessment, OT Occupational Therapy Not Indicated : At prior level of function Occupational Therapy Indicated : No ANAY BOCANEGRA STUDENTOCCUPATIONAL THERAPIST - 08/29/2020 13:40 EST Plan of Care, OT Reason OT Treatment/Plan Not Established : Pt at PLOF OT Tx Plan/Goals Established w Patient : No ANAY BOCANEGRA STUDENTOCCUPATIONAL THERAPIST - 08/29/2020 13:40 EST Penitentiary Goals, OT Grooming LTG Grid Goal #1 Activity : Assist : Date to Meet : Goal Status : Initial goal Comment : ANGELA DIAZ OTR/Sophie - 08/29/2020 15:27 EST Dressing, Lower Body LTG Grid Goal #1 Activity : Assist : Date to Meet : Goal Status : ANGELA DIAZ OTR/L - 08/29/2020 15:27 EST Toilet Transfer LTG Grid Goal #1 Activity : Assist : Date to Meet : Goal Status : ANGELA DIAZ OTR/L - 08/29/2020 15:27 EST Bed Mobility/ Bed [...] BOCANEGRA STUDENT-OCCUPATIONAL THERAPIST - 08/29/2020 13:40 EST Sarah Ann OT Charges OT Eval Moderate Complexity : 1 ANAY BOCANEGRA STUDENT-OCCUPATIONAL THERAPIST - 08/29/2020 13:19 EST documented in this encounter Plan of Treatment Not on file documented as of this encounter Visit Diagnoses Not on filedocumented in this encounter Care Teams Telecommunications Specialist Relationship Specialty Start Date End Date Jay Howell MD [address] [place] [phone] PCP - General Emergency Medicine 11/12/23 documented as of this encounter
--- OUTSIDE RECORDS SUMMARY | 2025-10-12 21:56 | XMS_ITS | Encounter Summary ---
Author Organization [employer] ([place], [place], [place], [place], [place]) Address [address] [place] [address] Care Team Providers Care Superintendent House Name Role Phone Jay Howell MD Primary Care Provider [phone] Encounter Details Date Type Department Care Team (Late st Contact Info) Description 06/13/2020 Transcribed Document [facility] [place] [address] [place] [address] ProviderJessie MD [address] [place] [address] Social History Tobacco Use Types Packs/Day Years [...] Legal Guardian : Responsible adult Support Person/Patient Mine Engineering Superintendent : Yes Support Person/Pt Rep Name : Willard Contact Password : Marvin Support Person/Pt Rep Contact Information : [phone] Want Family/Rep/Phys Notified of Admit : No [...] Obtained From : Patient Primary Language : Mexican Preferred Communication Mode : Verbal Communication Barrier : None Health Psychologist Needed : No PAUL GERBER RN - [...] Scale Risk Level : 25-45 Medium Risk [place] Fall Interventions : Adequate lighting, Bed in [...] Source : Stated Height Entry Format : Carter Height, Feet : 5 ft(Converted to: 152 cm, 60 Inch) Height, Inches : 3 Inch(Converted to: 0 ft 3 Inch, 7.62 cm) Clinical Height : 160.02 cm Weight Source : Bed scale Weight Entry Format : Carter Clinical Dosing Weight : 75.32 kg Weight, Pounds : 165.7 lb Body Surface Area (BSA) : 1.79 m2 Body Mass Index : 29.4 kg/m2 (HI) [place] Body Weight : 52 kg PAUL GERBER [...] PAUL GERBER RN - 06/13/2020 3:09 EDT [place] Suicide Severity Rating Scale (C-SSRS) CSSRS Past [...] Any Spiritual/Cultural Needs or Requests : Yes Voodoo Preference : Uatsdin Spiritual/Cult Concerns/Desires/Needs : Prayer Spiritual/Cultural Needs Comment [...] filedocumented in this encounter Care Teams Superintendent House Relationship Specialty Start Date End Date Jay Howell MD [address] [place] [phone] PCP - General Emergency Medicine 11/12/23 documented as of this encounter
--- OUTSIDE RECORDS SUMMARY | 2025-10-12 21:56 | XMS_ITS | Encounter Summary ---
Author Organization [employer] ([place], [place], [place], [place], [place]) Address [address] [place] [address] Care Team Providers Care Checkroom Attendant Name Role Phone Jay Howell MD Primary Care Provider [phone] Encounter Details Date Type Department Care Team (Late st Contact Info) Description 06/19/2020 Transcribed Document [facility] [place] Family Medicine [address] [place] [address] ProviderJessie MD [address] [place] [address] Social History Tobacco Use Types Packs/Day Years [...] On: 06/19/2020 12:12 EDT by Sri Kruse, Final Installer Inspector Patient Resource Center Provider Status : EST [...] at ED : Other Primary Language : Ethiopian Patient Resource Center Comment : Patient needs follow ups with PCP and Cardiology. Appointment already scheduled with Gabriella Asencio. I called and scheduled appointment with Dr. Tara Moeller and called patient with appointment. Follow Up Needed : No Sri Kruse, Final Installer Inspector - 06/19/2020 12:12 EDT Electronically signed by Sivan [facility] Conversion Autocad Draftsman Cerner at 02/04/2023 2:15 PM CDT documented in this encounter Plan of Treatment Not on file documented as of this encounter Visit Diagnoses Not on filedocumented in this encounter Care Teams Checkroom Attendant Relationship Specialty Start Date End Date Jay Howell MD [address] [place] [phone] PCP - General Emergency Medicine 11/12/23 documented as of this encounter
--- OUTSIDE RECORDS SUMMARY | 2025-10-12 21:56 | XMS_ITS | Encounter Summary ---
Author Organization [employer] ([place], [place], [place], [place], [place]) Address [address] [place] [address] Care Team Providers Care Manager Internet Name Role Phone Jay Howell MD Primary Care Provider [phone] Encounter Details Date Type Department Care Team (Late st Contact Info) Description 06/14/2020 Transcribed Document [facility] [place] [address] [place] [address] ProviderJessie MD [address] [place] [address] [phone] Social History Tobacco Use Types Packs/Day Years [...] : Yes Discharge To Care Management : Home/Residential/Fci or Self Care - JENAE COREY CSW - 06/14/2020 8:53 EDT Final Narrative Note Final Narrative Note : Pt declined services. JENAE COREY CSW - 06/14/2020 8:53 EDT Electronically signed by Sivan, [facility] Conversion Registered Route Associate Cerner at 02/04/2023 2:06 PM CDT documented in this encounter Plan of Treatment Not on file documented as of this encounter Visit Diagnoses Not on filedocumented in this encounter Care Teams Manager Internet Relationship Specialty Start Date End Date Jay Howell MD [address] [place] [phone] PCP - General Emergency Medicine 11/12/23 documented as of this encounter
--- OUTSIDE RECORDS SUMMARY | 2025-10-12 21:56 | XMS_ITS | Encounter Summary ---
Author Organization [employer] ([place], [place], [place], [place], [place]) Address [address] [place] [address] Care Team Providers Care Accountant Certified Public Name Role Phone Jay Howell MD Primary Care Provider [phone] Encounter Details Date Type Department Care Team (Late st Contact Info) Description 06/13/2020 Transcribed Document [facility] [place] [address] [place] [address] ProviderJessie MD [address] [place] [address] [phone] Social History Tobacco Use Types Packs/Day Years [...] on filedocumented in this encounter Care Teams Accountant Certified Public Relationship Specialty Start Date End Date Jay Howell MD [address] [place] [phone] PCP - General Emergency Medicine 11/12/23 documented as of this encounter
--- OUTSIDE RECORDS SUMMARY | 2025-10-12 21:56 | XMS_ITS | Encounter Summary ---
Author Organization [employer] ([place], [place], [place], [place], [place]) Address [address] [place] [address] Care Team Providers Care Carpet Winder Name Role Phone Jay Howell MD Primary Care Provider [phone] Encounter Details Date Type Department Care Team (Late st Contact Info) Description 06/13/2020 Transcribed Document [facility] Family Medicine [address] [place] [address] ProviderJessie MD [address] [place] [address] Social History Tobacco Use Types Packs/Day Years [...] On: 06/13/2020 13:24 EDT by JEFE SHELTON, Slab Tripper-Senior Research Fellow Initial Assessment I Previously Documented Living Environment [...] Listed? : Yes Medical Durable Power of Tire And Tube Repairer Name : No JEFE SHELTON Slab Tripper-Senior Research Fellow - 06/13/2020 13:24 EDT Initial Assessment II Sensory and Motor Deficits : Weakness Current Home Treatments and Equipment : CPAP, Walker JEFE SHELTON Slab Tripper-Senior Research Fellow - 06/13/2020 13:24 EDT Discharge Needs I Anticipated Discharge To, CM : Home with home health Current Home Treatment/Equipment : Current Home Treatment/Equipment No qualifying data available. Post Acute/Home Treatments : None Documentation Status Complete : Yes JEFE SHELTON Social Worker-Senior Research Fellow - 06/13/2020 13:24 EDT Discharge Needs II Professional Skilled Services : Professional Skilled Services No qualifying data available. Needs Assistance with Transportation : No Discharge Options Discussed with Patient : Acute rehabilitation, Discharge transportation, DME, Home Health, Short term rehabilitation JEFE SHELTON Slab Tripper-Senior Research Fellow - 06/13/2020 13:24 EDT Narrative Note Narrative Note : Patient is a low readmission risk of 38. Patient reported that she had HH in 2008 after a hip replacement. Patient stated that she has also been inpatient at [facility]. Patient reported that she is ADL independent but uses a walker when she walks around the park. Patient reported that she has transportation home. She denied having any discharge needs. Cm will continue to follow. JEFE SHELTON Slab Tripper-Senior Research Fellow - 06/13/2020 13:24 EDT documented in this encounter Plan of Treatment Not on file documented as of this encounter Visit Diagnoses Not on filedocumented in this encounter Care Teams Carpet Winder Relationship Specialty Start Date End Date Jay Howell MD [address] [place] [phone] PCP - General Emergency Medicine 11/12/23 documented as of this encounter
--- OUTSIDE RECORDS SUMMARY | 2025-10-12 21:56 | XMS_ITS | Encounter Summary ---
Author Organization [employer] ([place], [place], [place], [place], [place]) Address [address] [place] [address] Care Team Providers Care Saturation Equipment Operator Name Role Phone Jay Howell MD Primary Care Provider [phone] Encounter Details Date Type Department Care Team (Late st Contact Info) Description 08/22/2020 Transcribed Document [facility] [place] Medicine [address] [place] [address] ProviderJessie MD [address] [place] [address] Social History Tobacco Use Types Packs/Day Years Used Date Smoking Tobacco: Never Assessed Comments Unknown Sex and Gender Information Value Date Recorded Sex Assigned at Not on file Legal Sex Female 7:30 PM CDT Gender Identity Not on file Sexual Orientation Not on file documented as of this encounter Miscellaneous Notes * Cerner Conversion Note - Jessie ProviderMD - 08/22/2020 8:49 PM ARC WELDER [place] Suicide Severity Rating Scale (C-SSRS) Entered On: 08/22/2020 23:10 EST Performed On: 08/22/2020 23:10 EST by Noy Miguel Paramedic [place] Suicide Severity Rating Scale (C-SSRS) CSSRS Past [...] by Sivan, [facility] Conversion Test Evaluator Cerner at 02/04/2023 2:06 PM CDT documented in this encounter Plan of Treatment Not on file documented as of this encounter Visit Diagnoses Not on filedocumented in this encounter Care Teams Saturation Equipment Operator Relationship Specialty Start Date End Date Jya Howell MD [address] [place] [phone] PCP - General Emergency Medicine 11/12/23 documented as of this encounter
--- OUTSIDE RECORDS SUMMARY | 2025-10-12 21:56 | XMS_ITS | Encounter Summary ---
Author Organization [employer] ([place], [place], [place], [place], [place]) Address [address] [place] [address] Care Team Providers Care Phosphatic Fertilizer Supervisor Name Role Phone Jay Howell MD Primary Care Provider [phone] Encounter Details Date Type Department Care Team (Late st Contact Info) Description 06/14/2020 Transcribed Document [facility] Radiology [address] [place] [address] Cheyenne Flores MD [address] [place] [phone] Social History Tobacco Use Types Packs/Day [...] 06/13/20 16:23:00 EDT, Cardiac Diet, 60 gm carbs:[id number] george, Isolation: Standard Precautions Pending Labs Ordered PT/INR Prothrombin Time Specimen Type: Blood, Anticoagulant: Yes warfarin, AM Draw collect, 06/14/20 4:00:00 EDT, Daily, Lab Collect documented in this encounter Plan of Treatment Not on file documented as of this encounter Visit Diagnoses Not on filedocumented in this encounter Care Teams Phosphatic Fertilizer Supervisor Relationship Specialty Start Date End Date Jay Howell MD [address] [place] [phone] PCP - General Emergency Medicine 11/12/23 documented as of this encounter
--- OUTSIDE RECORDS SUMMARY | 2025-10-12 21:56 | XMS_ITS | Encounter Summary ---
Author Organization [employer] ([place], [place], [place], [place], [place]) Address [address] [place] [address] Care Team Providers Care Mica Layer Name Role Phone Jay Howell MD Primary Care Provider [phone] Encounter Details Date Type Department Care Team (Late st Contact Info) Description 06/14/2020 Transcribed Document [facility] [place] [address] [place] [address] ProviderJessie MD [address] [place] [address] Social History Tobacco Use Types Packs/Day Years [...] Diagnoses: None Author: FREDY YAÑEZ MD-CAR BASIC Mold Preparer: None Subjective NAD Health Status Allergies: Allergic [...] tablet 2 mg = 1 Tab, Oral, TuTFrSaSu dorzolamide 2% ophthalmic solution 1 Drop, Eye [...] list: All Problems Arthritis / SNOMED CT 0065804 / Confirmed Atrial fibrillation with RVR / SNOMED CT 2252548128 / Confirmed Blood clot / SNOMED CT 786865965 / Confirmed Cataract / Patient Care / Confirmed Chest pain / SNOMED CT 20386081 / Complaint of Clotting disorder / SNOMED CT 873161254 / Confirmed COPD / SNOMED CT 85309469 / Confirmed Coronary artery disease / SNOMED CT 5129604221 / Confirmed Diabetes mellitus / SNOMED CT 059226036 / Confirmed GERD - Gastro-esophageal reflux disease / SNOMED CT 3071363548 / Confirmed Glaucoma / Patient Care / Confirmed Chronic anticoagulation / SNOMED CT 465504594 / Confirmed Hx of pulmonary embolus / SNOMED CT 257568041 / Confirmed High blood pressure / SNOMED CT 91414235 / Confirmed History of obstructive sleep apnea / IMO 61985546 / Confirmed Hyperlipidemia / SNOMED CT 48482338 / Confirmed Multiple renal cysts / SNOMED CT 877856435 / Confirmed Emphysema / SNOMED CT 961934780 / Confirmed Apnea, sleep / SNOMED CT 777937761 / Confirmed Stented coronary artery / SNOMED CT 2876296272 / Confirmed UTI - Urinary tract infection / SNOMED CT 7747757026 / Confirmed, Active Problems (21) Apnea, sleep [...] of motion, Normal strength. Integumentary: Warm, Dry, [place]. Neurologic: Alert, Oriented. Psychiatric: Cooperative, Appropriate mood & affect. Results Review JUN 14 05:28 136 105 7 / H 114 3.6 24 0.60 \ JUN 14 05:28 \ 12.0 / 5.2 177 / 35.2 \ Cardiac Markers (Current Encounter/Past 24 Hours) No Cardiac Marker Results Found (Past 24 Hours) Radiology Results (Last 48 hours) [id number] -- 06/13/2020 15:07 CR Chest 1 Vw [...] changes by EKG HARVINDER to LAD -2018. Echo-valves OK, EF 55% in 2019 CAD [...] filedocumented in this encounter Care Teams Mica Layer Relationship Specialty Start Date End Date Jay Howell MD [address] [place] [phone] PCP - General Emergency Medicine 11/12/23 documented as of this encounter
--- OUTSIDE RECORDS SUMMARY | 2025-10-12 21:56 | XMS_ITS | Encounter Summary ---
Author Organization [employer] ([place], [place], [place], [place], [place]) Address [address] [place] [address] Care Team Providers Care Creative Manager Name Role Phone Jay Howell MD Primary Care Provider [phone] Encounter Details Date Type Department Care Team (Late st Contact Info) Description 06/14/2020 Transcribed Document [facility] [place] Medicine [address] [place] [address] ProviderJessie MD [address] [place], [place] [phone] Social History Tobacco Use Types Packs/Day Years Used Date Smoking Tobacco: Never Assessed Comments Unknown Sex and Gender Information Value Date Recorded Sex Assigned at Not on file Legal Sex Female 7:30 PM CDT Gender Identity Not on file Sexual Orientation Not on file documented as of this encounter Miscellaneous Notes * Cerner Conversion Note - Jessie ProviderMD - 06/14/2020 5:00 AM CDT Chart Check - Review Order Profile Entered On: 06/14/2020 6:24 EDT Performed On: 06/14/2020 5:00 EDT by PAUL GERBER RN Chart Check Powerplans Initiated/Discontinued as Appropriate : Yes All Active Orders Reviewed : Yes PAUL GERBER RN - 06/14/2020 6:24 EDT Electronically signed by Sivan [facility] Conversion Medical Laboratory Technologist Cerner at 02/04/2023 2:11 PM CDT documented in this encounter Plan of Treatment Not on file documented as of this encounter Visit Diagnoses Not on filedocumented in this encounter Care Teams Creative Manager Relationship Specialty Start Date End Date Jay Howell MD [address] [place] [phone] PCP - General Emergency Medicine 11/12/23 documented as of this encounter
--- OUTSIDE RECORDS SUMMARY | 2025-10-12 21:56 | XMS_ITS | Encounter Summary ---
Author Organization [employer] ([place], [place], [place], [place], [place]) Address [address] [place] [address] Care Team Providers Care Jet Aircraft Servicer Name Role Phone Jay Howell MD Primary Care Provider [phone] Encounter Details Date Type Department Care Team (Late st Contact Info) Description 06/14/2020 Transcribed Document [facility] [place] [address] [place] [address] ProviderJessie MD [address] [place] [address] [phone] Social History Tobacco Use Types Packs/Day Years Used Date Smoking Tobacco: Never Assessed Comments Unknown Sex and Gender Information Value Date Recorded Sex Assigned at Not on file Legal Sex Female 7:30 PM CDT Gender Identity Not on file Sexual Orientation Not on file documented as of this encounter Miscellaneous Notes * Cerner Conversion Note - Jessie ProviderMD - 06/14/2020 2:00 AM CDT Assistant Finance Director Details Entered On: 06/14/2020 2:51 EDT Performed [...] on filedocumented in this encounter Care Teams Jet Aircraft Servicer Relationship Specialty Start Date End Date Jay Howell MD [address] [place] [phone] PCP - General Emergency Medicine 11/12/23 documented as of this encounter
--- OUTSIDE RECORDS SUMMARY | 2025-10-12 21:56 | XMS_ITS | Encounter Summary ---
Author Organization [employer] ([place], [place], [place], [place], [place]) Address [address] [place] [address] Care Team Providers Care Eye Care Professional Name Role Phone Jay Howell MD Primary Care Provider [phone] Encounter Details Date Type Department Care Team (Late st Contact Info) Description 03/03/2021 Transcribed Document [facility] [place] Medicine [address] [place] [address] ProviderJessie MD [address] [place], [place] 096691 Social History Tobacco Use Types Packs/Day Years Used Date Smoking Tobacco: Never Assessed Comments Unknown Sex and Gender Information Value Date Recorded Sex Assigned at Not on file Legal Sex Female 7:30 PM CDT Gender Identity Not on file Sexual Orientation Not on file documented as of this encounter Miscellaneous Notes * Cerner Conversion Note - Jessie ProviderMD - 03/03/2021 3:59 PM CDT [place] Suicide Severity Rating Scale (C-SSRS) Entered On: 03/03/2021 16:25 EDT Performed On: 03/03/2021 16:24 EDT by Marek Sanford Rn [place] Suicide Severity Rating Scale (C-SSRS) CSSRS Past Month Wish to be : No CSSRS Past Month Suicidal Thoughts : No CSSRS Lifetime Suicide Behavior : No Suicide Severity Rating Score : 0 Suicide Severity Rating : No Additional Care Required at this time Marek Sanford Rn - 03/03/2021 16:24 EDT Electronically signed by Sivan [facility] Conversion [employer] Clerk Cerner at 02/04/2023 2:10 PM CDT documented in this encounter Plan of Treatment Not on file documented as of this encounter Visit Diagnoses Not on filedocumented in this encounter Care Teams Eye Care Professional Relationship Specialty Start Date End Date Jay Howell MD [address] [place] [phone] PCP - General Emergency Medicine 11/12/23 documented as of this encounter
--- OUTSIDE RECORDS SUMMARY | 2025-10-12 21:56 | XMS_ITS | Encounter Summary ---
Author Organization [employer] ([place], [place], [place], [place], [place]) Address [address] [place] [address] Care Team Providers Care Furniture Designer Name Role Phone Jay Howell MD Primary Care Provider [phone] Encounter Details Date Type Department Care Team (Late st Contact Info) Description 08/22/2020 Transcribed Document [facility] [place] [address] [place] [address] ProviderJessie MD [address] [place] [address] [phone] Social History Tobacco Use Types Packs/Day Years Used Date Smoking Tobacco: Never Assessed Comments Unknown Sex and Gender Information Value Date Recorded Sex Assigned at Not on file Legal Sex Female 7:30 PM CDT Gender Identity Not on file Sexual Orientation Not on file documented as of this encounter Miscellaneous Notes * Cerner Conversion Note - Jessie Yuen MD - 08/22/2020 10:50 PM PET FOOD DEBONER Patient: SKYLER MONTOYA Age: 79 years Sex: Female : 1940 Associated Diagnoses: Abscess of left leg Author: LO HALE MD-EMR Basic Information Additional information: Chief Complaint from Nursing Triage Note : Chief Complaint 08/22/2020 20:52 EST Chief Complaint c/o LLE pain/ swelling. felll last week, [facility]. 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 femur repair. Appendectomy ([id number]). uterine suspension. Hysterectomy ([id number]). back surgury. Cholecystectomy ([id number]). Hip replacement ([id number]). cataract surgury.. Family history: Cardiomyopathy Child Stroke [...] EST Height Source Stated Height Entry Format Anderson Height/Length, GERMAN (ft) 5 ft Height/Length GERMAN 3 Inch CLINICALHEIGHT 160.02 cm [place] Body Weight 52.02 kg Weight Source, ED Critical estimated dosing weight Weight Entry Format Anderson Weight Mexican lb 154 lb CLINICALWEIGHT 70 kg Body [...] % 33.0 % Lymph # 2.33 x10(3)/uL [place] % 10.1 % [place] # 0.71 K/uL Eos % 2.1 % Eos # 0.15 x10(3)/uL Baso % 0.4 % Baso # 0.03 x10(3)/uL Slide Review No IG# 0.04 x10(3)/uL IG% 0.60 % . Radiology results: Left tib/fib: no fx or dl Left ankle: no fx or dl. [facility] [id number] was reviewed. Last entry 07/30/20 for norco [...] Medical Plan Condition: Improved, Stable. Prescriptions: Prescription [facility]: [facility] 7.5 mg-325 mg oral tablet (Prescribe): 1 Tab, Oral, Q6H, for 3 Day(s), PRN: as needed for pain, 12 Tab, 0 Refill(s) clindamycin 300 mg oral capsule (Prescribe): 1 Cap, Oral, QID, for 7 Day(s), 28 Cap, 0 Refill(s), Prescription [facility]: [facility] 2% topical ointment (Prescribe): 1 [...] filedocumented in this encounter Care Teams Furniture Designer Relationship Specialty Start Date End Date Jay Howell MD [address] [place] [phone] PCP - General Emergency Medicine 11/12/23 documented as of this encounter
--- OUTSIDE RECORDS SUMMARY | 2025-10-12 21:56 | XMS_ITS | Encounter Summary ---
Author Organization [employer] ([place], [place], [place], [place], [place]) Address [address] [place] [address] Care Team Providers Care Chore Worker Name Role Phone Jay Howell MD Primary Care Provider [phone] Encounter Details Date Type Department Care Team (Late st Contact Info) Description 06/14/2020 Transcribed Document [facility] [place] [address] [place] [address] ProviderJessie MD [address] [place] [address] Social History Tobacco Use Types Packs/Day [...] Yuen MD - 06/14/2020 2:41 PM CDT [facility] [place] [address] SKYLER MONTOYA :1940 Visit Time:06/13/2020 Your Visit Summary Your Care Team Admitting Physician - MARIA ELENA DAVALOS MD-[facility] Attending Physician - MARIA ELENA DAVALOS MD-[facility] Primary Care Physician - TARA CHEN [...] provider. This is important. Medicines ??? Take cahp-mdg-ikdfavu and prescription medicines only as told by [...] 10/03/2006 Document Revised: 06/13/2019 Document Reviewed: 06/13/2019 [employer] Patient Education ?? 2020 [employer] Emergency Awareness and Preventative Care STROKE [...] Assistance with quitting is available by contacting 3-323-NBSR-NOW. This is a free resource providing counseling, [...] range between ( 0.0 and 7.0 ) [place] #: 0.61 K/uL -- Normal range between ( 0.16 and 1.00 ) Eos #: 0.12 x10(3)/uL -- Normal range between ( 0.00 and 0.80 ) [place] %: 10.6 % -- Normal range between [...] was given the opportunity to ask questions. Patient/Desulfurizer Hand Name: Patient/Desulfurizer Hand Signature: Relationship to Patient: Clinician/Hospital Desulfurizer Hand Signature: Date: Electronically signed by Gayle Finnegan Conversion Category Development Analyst Cerner at 02/04/2023 2:05 PM CDT documented in this encounter Plan of Treatment Not on file documented as of this encounter Visit Diagnoses Not on filedocumented in this encounter Care Teams Chore Worker Relationship Specialty Start Date End Date Jay Howell MD [address] [place] [phone] PCP - General Emergency Medicine 11/12/23 documented as of this encounter
--- OUTSIDE RECORDS SUMMARY | 2025-10-12 21:56 | XMS_ITS | Encounter Summary ---
Author Organization [employer] ([place], [place], [place], [place], [place]) Address [address] [place] [address] Care Team Providers Care Clinical Writer Name Role Phone [place] Howell MD Primary Care Provider [phone] Encounter Details Date Type Department Care Team (Late st Contact Info) Description 06/14/2020 Transcribed Document [facility] [place] [address] [place] [address] ProviderJessie MD [address] [place] [address] [phone] Social History Tobacco Use Types Packs/Day Years Used Date Smoking Tobacco: Never Assessed Comments Unknown Sex and Gender Information Value Date Recorded Sex Assigned at Not on file Legal Sex Female 7:30 PM CDT Gender Identity Not on file Sexual Orientation Not on file documented as of this encounter Miscellaneous Notes * Cerner Conversion Note - Jessie Yuen MD - 06/14/2020 2:23 PM CDT Nursing Discharge [...] 06/14/2020 14:23 EDT Electronically signed by Sivan [facility] Conversion Material Man Cerner at 02/04/2023 2:18 PM CDT documented in this encounter Plan of Treatment Not on file documented as of this encounter Visit Diagnoses Not on filedocumented in this encounter Care Teams Clinical Writer Relationship Specialty Start Date End Date [place] Howell MD [address] [place] [phone] PCP - General Emergency Medicine 11/12/23 documented as of this encounter
--- OUTSIDE RECORDS SUMMARY | 2025-10-12 21:56 | XMS_ITS | Encounter Summary ---
Author Organization [employer] ([place], [place], [place], [place], [place]) Address [address] [place] [address] Care Team Providers Care Filler Feeder Name Role Phone [place] Howell MD Primary Care Provider [phone] Encounter Details Date Type Department Care Team (Late st Contact Info) Description 08/22/2020 Transcribed Document [facility] [place] [address] [place] [address] ProviderJessie MD [address] [place] [address] [phone] Social History Tobacco Use Types Packs/Day Years Used Date Smoking Tobacco: Never Assessed Comments Unknown Sex and Gender Information Value Date Recorded Sex Assigned at Not on file Legal Sex Female 7:30 PM CDT Gender Identity Not on file Sexual Orientation Not on file documented as of this encounter Miscellaneous Notes * Cerner Conversion Note - Jessie ProviderMD - 08/22/2020 10:42 PM PMO CONSULTANT Pain Assessment Entered On: 08/23/2020 1:08 [...] on filedocumented in this encounter Care Teams Filler Feeder Relationship Specialty Start Date End Date [place] Howell MD [address] [place] [phone] PCP - General Emergency Medicine 11/12/23 documented as of this encounter
--- OUTSIDE RECORDS SUMMARY | 2025-10-12 21:56 | XMS_ITS | Encounter Summary ---
Author Organization [employer] ([place], [place], [place], [place], [place]) Address [address] [place] [address] Care Team Providers Care Nephrology Social Worker Name Role Phone [place] Howell MD Primary Care Provider [phone] Encounter Details Date Type Department Care Team (Late st Contact Info) Description 06/13/2020 Transcribed Document [facility] [place] [address] [place] [address] ProviderJessie MD [address] [place] [address] [phone] Social History Tobacco Use Types Packs/Day Years [...] on filedocumented in this encounter Care Teams Nephrology Social Worker Relationship Specialty Start Date End Date [place] Howell MD [address] [place] [phone] PCP - General Emergency Medicine 11/12/23 documented as of this encounter
--- OUTSIDE RECORDS SUMMARY | 2025-10-12 21:56 | XMS_ITS | Encounter Summary ---
Author Organization [employer] ([place], [place], [place], [place], [place]) Address [address] [place] [address] Care Team Providers Care Deicer Repairer Name Role Phone [place] Howell MD Primary Care Provider [phone] Encounter Details Date Type Department Care Team (Late st Contact Info) Description 03/03/2021 Transcribed Document [facility] [place] [address] [place] [address] ProviderJessie MD [address] [place], [place] [phone] Social History Tobacco Use Types Packs/Day Years Used Date Smoking Tobacco: Never Assessed Comments Unknown Sex and Gender Information Value Date Recorded Sex Assigned at Not on file Legal Sex Female 7:30 PM CDT Gender Identity Not on file Sexual Orientation Not on file documented as of this encounter Miscellaneous Notes * Cerner Conversion Note - Jessie ProviderMD - 03/03/2021 3:59 PM CDT Bro[place] Violence Assessment Entered On: 03/03/2021 16:25 EDT Performed On: 03/03/2021 16:24 EDT by Marek Sanford Rn Broset Violence Assessment Broset Violence Checklist of Symptoms : None Broset Violence Symptoms Subtotal : 0 Broset Violence Symptoms Indicator : Low risk (0) Broset Interventions : [place] precautions for safety used Marek Sanford Rn - 03/03/2021 16:24 EDT Electronically signed by Sivan [facility] Conversion Carpenter'S Assistant Cerner at 02/04/2023 2:12 PM CDT documented in this encounter Plan of Treatment Not on file documented as of this encounter Visit Diagnoses Not on filedocumented in this encounter Care Teams Deicer Repairer Relationship Specialty Start Date End Date [place] Howell MD [address] [place] [phone] PCP - General Emergency Medicine 11/12/23 documented as of this encounter
--- OUTSIDE RECORDS SUMMARY | 2025-10-12 21:56 | XMS_ITS | Encounter Summary ---
Author Organization [employer] ([place], [place], [place], [place], [place]) Address [address] [place] [address] Care Team Providers Care Multifocal Lens Assembler Name Role Phone [place] Howell MD Primary Care Provider [phone] Encounter Details Date Type Department Care Team (Late st Contact Info) Description 08/27/2020 Transcribed Document [facility] Family Medicine [address] [place] [address] ProviderJessie MD [address] [place] [address] [phone] Social History Tobacco Use Types Packs/Day Years Used Date Smoking Tobacco: Never Assessed Comments Unknown Sex and Gender Information Value Date Recorded Sex Assigned at Not on file Legal Sex Female 7:30 PM CDT Gender Identity Not on file Sexual Orientation Not on file documented as of this encounter Miscellaneous Notes * Cerner Conversion Note - Jessie Yuen MD - 08/27/2020 3:10 PM STEAM SHOVEL OPERATOR On Going Discharge Planning Entered On: 08/27/2020 15:14 EST Performed On: 08/27/2020 15:10 EST by KAVITA PELLETIER RN-Drone PilotClinical Nurse Specialist Progress Note Discharge Arrangements : Patient Post-Acute [...] Meeting Medical Necessity : Yes KAVITA PELLETIER RN-Drone Pilot - 08/27/2020 15:10 EST Narrative Progress Note [...] her SIMONA and went to [facility] prior to home with HH. She is agreeable to look at list of PEDIATRICS PHYSICIAN to make an informed decision based on quality and resource use information. Cx's are pending to determine need for IV abx at home. Likely dc in a few days. CM will continue to follow. KAVITA PELLETIER RN-Drone Pilot - 08/27/2020 15:10 EST Electronically signed by Sivan [facility] Conversion Brain Wave Technician Cerner at 02/04/2023 2:13 PM CDT documented in this encounter Plan of Treatment Not on file documented as of this encounter Visit Diagnoses Not on filedocumented in this encounter Care Teams Multifocal Lens Assembler Relationship Specialty Start Date End Date [place] Howell MD [address] [place] [phone] PCP - General Emergency Medicine 11/12/23 documented as of this encounter
--- OUTSIDE RECORDS SUMMARY | 2025-10-12 21:56 | XMS_ITS | Encounter Summary ---
Author Organization [employer] ([place], [place], [place], [place], [place]) Address [address] [place] [address] Care Team Providers Care Chief Of Hospital Medicine Name Role Phone [place] Howell MD Primary Care Provider [phone] Encounter Details Date Type Department Care Team (Late st Contact Info) Description 08/27/2020 Transcribed Document [facility] [place] [address] [place] [address] ProviderJessie MD [address] [place] [address] Social History Tobacco Use Types Packs/Day Years Used Date Smoking Tobacco: Never Assessed Comments Unknown Sex and Gender Information Value Date Recorded Sex Assigned at Not on file Legal Sex Female 7:30 PM CDT Gender Identity Not on file Sexual Orientation Not on file documented as of this encounter Miscellaneous Notes * Cerner Conversion Note - Jessie Yuen MD - 08/27/2020 9:53 AM GLAZIER SUPERVISOR WOCN Inpatient Documentation Entered On: 09/01/2020 16:35 [...] Ulcer WOCN Wound Pressure Ulcer Documentation : [id number]-Jvxdle-Ecft Abnormality: Leg Left Lower, Anterior on 09/01/2020 13:00 by HOLDEN HESS RN I/W/A Present on Admission to Hospital: No I/W/A Type: Hematoma I/W/A Dressing Status: Clean, Dry, Intact I/W/A Wound Date of Dressing Change: [id number]:0 I/W/A Wound Bed Description: Full-thickness, Granulating I/W/A [...] - 09/01/2020 16:32 EST Electronically signed by Sivan [facility] Conversion Woodwork Salvage Inspector Cerner at 02/04/2023 2:18 PM CDT documented in this encounter Plan of Treatment Not on file documented as of this encounter Visit Diagnoses Not on filedocumented in this encounter Care Teams Chief Of Hospital Medicine Relationship Specialty Start Date End Date Jay Howell MD [address] [place] [phone] PCP - General Emergency Medicine 11/12/23 documented as of this encounter
--- OUTSIDE RECORDS SUMMARY | 2025-10-12 21:56 | XMS_ITS | Encounter Summary ---
Author Organization [facility] ([place], [place], [place], [place], [place]) Address [address] [place] [address] Care Team Providers Care Neurology Stroke Physician Name Role Phone [place] Howell MD Primary Care Provider [phone] Encounter Details Date Type Department Care Team (Late st Contact Info) Description 06/13/2020 Transcribed Document [facility] [place] [address] [place] [phone] ProviderJessie MD [address] [place] [address] Social History Tobacco Use Types Packs/Day Years [...] Tobacco Cues : Verbalizes understanding Activities to [place] With Smoking Urges : Verbalizes understanding Basic [...] on filedocumented in this encounter Care Teams Neurology Stroke Physician Relationship Specialty Start Date End Date [place] Howell MD [address] [place] [phone] PCP - General Emergency Medicine 11/12/23 documented as of this encounter
--- OUTSIDE RECORDS SUMMARY | 2025-10-12 21:56 | XMS_ITS | Encounter Summary ---
Author Organization [employer] ([place], [place], [place], [place], [place]) Address [address] [place] [address] Care Team Providers Care Roll Wrapper Name Role Phone Jay Howell MD Primary Care Provider [phone] Encounter Details Date Type Department Care Team (Late st Contact Info) Description 08/22/2020 Transcribed Document [facility] [place] [address] [place] [address] ProviderJessie MD [address] [place] [address] [phone] Social History Tobacco Use Types Packs/Day Years Used Date Smoking Tobacco: Never Assessed Comments Unknown Sex and Gender Information Value Date Recorded Sex Assigned at Not on file Legal Sex Female 7:30 PM CDT Gender Identity Not on file Sexual Orientation Not on file documented as of this encounter Miscellaneous Notes * Cerner Conversion Note - Jessie Yuen MD - 08/22/2020 8:49 PM ENTRY LEVEL MANAGEMENT ED Triage Entered On: 08/22/2020 20:57 EST [...] : 3 - Urgent Tracking Group : [facility] [...] ; Reactions: rash, rash ; Created By: ContributorAUSTIN frost; Reaction Status: Active ; Category: Drug ; Substance: morphine ; Type: Allergy ; Updated By: AUSTIN Nuñez; Reviewed Date: 08/22/2020 20:53 EST nitrofurantoin Estimated Onset Date: Unspecified ; Reactions: blisters, blisters ; Created By: AUSTIN Nuñez; Reaction Status: Active ; Category: Drug ; Substance: nitrofurantoin ; Type: Allergy ; Updated By: Contributor_system, HIST_FELIX; Reviewed Date: 08/22/2020 20:53 EST Diagnosis Control ED (As Of: 08/22/2020 20:57:39 EST) Problems(Active) Apnea, sleep (SNOMED CT :306514864 ) Name of Problem: Apnea, sleep ; Recorder: JUAN LUIS GIL RN; Confirmation: Confirmed ; Classification: Medical ; Code: [id number] ; Contributor System: PowerChart ; Last Updated: 11/12/2014 10:12 EST ; Life Cycle Date: 11/12/2014 ; Life Cycle Status: Active ; Vocabulary: SNOMED CT Arthritis (SNOMED CT :4786223 ) Name of Problem: Arthritis ; Recorder: KENYON CHAMBERS RN; Confirmation: Confirmed ; Classification: Medical ; Code: [id number] ; Contributor System: PowerChart ; Last Updated: 04/10/2016 8:04 EDT ; Life Cycle Date: 08/13/2013 ; Life Cycle Status: Active ; Vocabulary: SNOMED CT Atrial fibrillation with RVR (SNOMED CT :9587853290 ) Name of Problem: Atrial fibrillation with RVR ; Recorder: SANG RICO APRN; Confirmation: Confirmed ; Classification: Medical ; Code: [id number] ; Contributor System: PowerChart ; Last Updated: 04/10/2016 8:05 EDT ; Life Cycle Date: 04/10/2016 ; Life Cycle Status: Active ; Responsible Provider: SANG RICO APRN; Vocabulary: SNOMED CT Blood clot (SNOMED CT :887371674 ) Name of Problem: Blood clot ; Recorder: KENYON CHAMBERS RN; Confirmation: Confirmed ; Classification: Patient Stated ; Code: 153196835 ; Contributor System: PowerChart ; Last Updated: [...] Vocabulary: Patient Care Chest pain (SNOMED CT :20407223 ) Name of Problem: Chest pain ; Recorder: SANG RICO APRN; Confirmation: Complaint of ; Classification: Medical ; Code: 35477887 ; Contributor System: PowerChart ; Last Updated: 04/10/2016 8:05 EDT ; Life Cycle Status: Active ; Responsible Provider: SANG RICO APRN; Vocabulary: SNOMED CT Chronic anticoagulation (SNOMED CT :459162978 ) Name of Problem: Chronic anticoagulation ; Recorder: SANG RICO APRN; Confirmation: Confirmed ; Classification: Medical ; Code: 264542575 ; Contributor System: PowerChart ; Last Updated: 04/10/2016 8:05 EDT ; Life Cycle Date: 04/10/2016 ; Life Cycle Status: Active ; Responsible Provider: SANG RICO APRN; Vocabulary: SNOMED CT Clotting disorder (SNOMED CT :541603697 ) Name of Problem: Clotting disorder ; Recorder: KENYON CHAMBERS RN; Confirmation: Confirmed ; Classification: Patient Stated ; Code: 219163786 ; Contributor System: PowerChart ; Last Updated: 03/28/2014 19:29 EDT ; Life Cycle Date: 08/13/2013 ; Life Cycle Status: Active ; Vocabulary: SNOMED CT COPD (SNOMED CT :69755773 ) Name of Problem: COPD ; Recorder: KENYON CHAMBERS RN; Confirmation: Confirmed ; Classification: Medical ; Code: 15241161 ; Contributor System: MobissimoChart ; Last Updated: 04/10/2016 8:03 EDT ; Life Cycle Date: 08/13/2013 ; Life Cycle Status: Active ; Vocabulary: SNOMED CT Coronary artery disease (SNOMED CT :1212326592 ) Name of Problem: Coronary artery disease ; Recorder: KENYON CHAMBERS RN; Confirmation: Confirmed ; Classification: Medical ; Code: 9035764996 ; Contributor System: PowerChart ; Last Updated: 04/10/2016 8:03 EDT ; Life Cycle Date: 08/13/2013 ; Life Cycle Status: Active ; Vocabulary: SNOMED CT Diabetes mellitus (SNOMED CT :850081419 ) Name of Problem: Diabetes mellitus ; Recorder: KENYON CHAMBERS RN; Confirmation: Confirmed ; Classification: Medical ; Code: 619383065 ; Contributor System: PowerChart ; Last Updated: 04/10/2016 8:04 EDT ; Life Cycle Date: 08/13/2013 ; Life Cycle Status: Active ; Vocabulary: SNOMED CT Emphysema (SNOMED CT :084096503 ) Name of Problem: Emphysema ; Recorder: JUAN LUIS GIL RN; Confirmation: Confirmed ; Classification: Medical ; Code: 316257018 ; Contributor System: PowerChart ; Last Updated: 11/12/2014 10:11 EST ; Life Cycle Date: 11/12/2014 ; Life Cycle Status: Active ; Vocabulary: SNOMED CT GERD - Gastro-esophageal reflux disease (SNOMED CT :0744142617 ) Name of Problem: GERD - Gastro-esophageal reflux disease ; Recorder: KENYON CHAMBERS RN; Confirmation: Confirmed ; Classification: Medical ; Code: 6450780773 ; Contributor System: PowerChart ; Last Updated: [...] Patient Care High blood pressure (SNOMED CT :68645290 ) Name of Problem: High blood pressure ; Recorder: KENYON CHAMBERS RN; Confirmation: Confirmed ; Classification: Medical ; Code: 43996195 ; Contributor System: PowerChart ; Last Updated: 04/10/2016 8:03 EDT ; Life Cycle Date: 08/13/2013 ; Life Cycle Status: Active ; Vocabulary: SNOMED CT History of obstructive sleep apnea (IMO :53402606 ) Name of Problem: History of obstructive sleep apnea ; Recorder: SYSTEM, SYSTEM; Confirmation: Confirmed ; Classification: Medical ; Code: 91341951 ; Last Updated: 12/20/2018 12:01 EST ; Life Cycle Date: 12/20/2018 ; Life Cycle Status: Active ; Vocabulary: IMO Hx of pulmonary embolus (SNOMED CT :016841056 ) Name of Problem: Hx of pulmonary embolus ; Recorder: SANG RICO APRN; Confirmation: Confirmed ; Classification: Medical ; Code: 301368362 ; Contributor System: PowerChart ; Last Updated: 04/10/2016 8:05 EDT ; Life Cycle Date: 04/10/2016 ; Life Cycle Status: Active ; Responsible Provider: SANG RICO APRN; Vocabulary: SNOMED CT Hyperlipidemia (SNOMED CT :93840093 ) Name of Problem: Hyperlipidemia ; Recorder: KENYON CHAMBERS RN; Confirmation: Confirmed ; Classification: Medical ; Code: 05864230 ; Contributor System: MobissimoChart ; Last Updated: 04/10/2016 8:03 EDT ; Life Cycle Date: 08/13/2013 ; Life Cycle Status: Active ; Vocabulary: SNOMED CT Multiple renal cysts (SNOMED CT :070445337 ) Name of Problem: Multiple renal cysts ; Recorder: KENYON CHAMBERS RN; Confirmation: Confirmed ; Classification: Medical ; Code: 974893896 ; Contributor System: MobissimoChart ; Last Updated: 04/10/2016 8:04 EDT ; Life Cycle Date: 08/13/2013 ; Life Cycle Status: Active ; Vocabulary: SNOMED CT Stented coronary artery (SNOMED CT :1026467759 ) Name of Problem: Stented coronary artery ; Recorder: KENYON CHAMBERS RN; Confirmation: Confirmed ; Classification: Medical ; Code: 9159864247 ; Contributor System: MobissimoChart ; Last Updated: 04/10/2016 8:03 EDT ; Life Cycle Date: 08/13/2013 ; Life Cycle Status: Active ; Vocabulary: SNOMED CT UTI - Urinary tract infection (SNOMED CT :1850755647 ) Name of Problem: UTI - Urinary tract infection ; Recorder: KENYON CHAMBERS RN; Confirmation: Confirmed ; Classification: Medical ; Code: 7021568718 ; Contributor System: MobissimoChart ; Last Updated: 04/10/2016 8:04 EDT ; Life Cycle Date: 08/13/2013 ; Life Cycle Status: Active ; Vocabulary: SNOMED CT Diagnoses(Active) Leg pain-swelling Date: 08/22/2020 ; Diagnosis Type: Reason For Visit ; Confirmation: Complaint of ; Clinical Dx: Leg pain-swelling ; Classification: Medical ; Clinical Service: Emergency medicine ; Code: PNED ; Probability: 0 ; Diagnosis Code: [id number] ED Height and Weight Height Source : Stated Height Entry Format : [place] Height, Feet : 5 ft(Converted to: 152 cm, 60 Inch) Height, Inches : 3 Inch(Converted to: 0 ft 3 Inch, 7.62 cm) Clinical Height : 160.02 cm Weight Source, ED : Critical estimated dosing weight Weight Entry Format : [place] Weight, Pounds : 154 lb Clinical Dosing Weight : 70 kg Body Surface Area (BSA) : 1.73 m2 Body Mass Index : 27.3 kg/m2 (HI) [place] Body Weight (IBW) : 52.02 kg LUCINDA FOFANA RN - 08/22/2020 20:52 EST Electronically signed by [facility], [facility] Conversion Orthopedic Rn Cerner at 02/04/2023 2:09 PM CDT documented in this encounter Plan of Treatment Not on file documented as of this encounter Visit Diagnoses Not on filedocumented in this encounter Care Teams Roll Wrapper Relationship Specialty Start Date End Date Jay Howell MD [address] [place] [phone] PCP - General Emergency Medicine 11/12/23 documented as of this encounter
--- OUTSIDE RECORDS SUMMARY | 2025-10-12 21:56 | XMS_ITS | Encounter Summary ---
Author Organization [employer] ([place], [place], [place], [place], [place]) Address [address] [place] [address] Care Team Providers Care Repair Cameraman Name Role Phone Jay Howell MD Primary Care Provider [phone] Encounter Details Date Type Department Care Team (Late st Contact Info) Description 06/13/2020 Transcribed Document [facility] [place] [address] [place] [phone] Jessie Yune MD [address] [place] [phone] Social History Tobacco Use Types Packs/Day Years [...] Chart was reviewed. Time spent, 55 minutes. /[id number] MD MCKAY Priest/NABOR / MCKAY / BONILLAL CC: Dr. Avtar Moeller Electronically signed by [facility], [facility] Conversion Vehicle Technician Cerner at 02/04/2023 2:09 PM CDT documented in this encounter Plan of Treatment Not on file documented as of this encounter Visit Diagnoses Not on filedocumented in this encounter Care Teams Repair Cameraman Relationship Specialty Start Date End Date Jay Howell MD [address] [place] [phone] PCP - General Emergency Medicine 11/12/23 documented as of this encounter
--- OUTSIDE RECORDS SUMMARY | 2025-10-12 21:56 | XMS_ITS | Encounter Summary ---
Author Organization [employer] ([place], [place], [place], [place], [place]) Address [address] [place] [address] Care Team Providers Care Broth Mixer Name Role Phone Jay Howell MD Primary Care Provider [phone] Encounter Details Date Type Department Care Team (Late st Contact Info) Description 08/22/2020 Transcribed Document [facility] [place] [address] [place] [address] ProviderJessie MD [address] [place] [address] [phone] Social History Tobacco Use Types Packs/Day Years Used Date Smoking Tobacco: Never Assessed Comments Unknown Sex and Gender Information Value Date Recorded Sex Assigned at Not on file Legal Sex Female 7:30 PM CDT Gender Identity Not on file Sexual Orientation Not on file documented as of this encounter Miscellaneous Notes * Cerner Conversion Note - Jessie ProviderMD - 08/22/2020 8:49 PM ABRASIVE MIXER Broset Violence Assessment Entered On: 08/22/2020 23:10 EST Performed On: 08/22/2020 23:10 EST by Noy Miguel Reports Analyst Broset Violence Assessment Broset Violence Checklist of Symptoms : None Broset Violence Symptoms Subtotal : 0 Broset Violence Symptoms Indicator : Low risk (0) Noy Miguel Paramedic - 08/22/2020 23:10 EST Electronically signed by [facility] Conversion Plate Developer Cerner at 02/04/2023 1:55 PM CDT documented in this encounter Plan of Treatment Not on file documented as of this encounter Visit Diagnoses Not on filedocumented in this encounter Care Teams Broth Mixer Relationship Specialty Start Date End Date Jay Howell MD [address] [place] [phone] PCP - General Emergency Medicine 11/12/23 documented as of this encounter
--- OUTSIDE RECORDS SUMMARY | 2025-10-12 21:56 | XMS_ITS | Encounter Summary ---
Author Organization [employer] ([place], [place], [place], [place], [place]) Address [address] [place] [address] Care Team Providers Care Law Librarian Name Role Phone Jay Howell MD Primary Care Provider [phone] Encounter Details Date Type Department Care Team (Late st Contact Info) Description 03/04/2021 Transcribed Document [facility] [place] [address] [place] [address] ProviderJessie MD [address] [place] [address] Social History Tobacco Use Types [...] on filedocumented in this encounter Care Teams Law Librarian Relationship Specialty Start Date End Date Jay Howell MD [address] [place] [phone] PCP - General Emergency Medicine 11/12/23 documented as of this encounter
--- OUTSIDE RECORDS SUMMARY | 2025-10-12 21:56 | XMS_ITS | Encounter Summary ---
Author Organization [employer] ([place], [place], [place], [place], [place]) Address [address] [place] [address] Care Team Providers Care Pile Driver Operator Barge Mounted Name Role Phone Jay Howell MD Primary Care Provider [phone] Encounter Details Date Type Department Care Team (Late st Contact Info) Description 03/03/2021 Transcribed Document [facility] [place] [address] [place] [address] ProviderJessie MD [address] [place] [address] [phone] Social History Tobacco Use Types Packs/Day Years [...] 03/03/2021 5:06 PM CDT Electronically signed by [facility] Conversion Geotechnical Engineer Cerner at 02/04/2023 2:08 PM CDT documented in this encounter Plan of Treatment Not on file documented as of this encounter Visit Diagnoses Not on filedocumented in this encounter Care Teams Pile Driver Operator Barge Mounted Relationship Specialty Start Date End Date Jay Howell MD [address] [place] [phone] PCP - General Emergency Medicine 11/12/23 documented as of this encounter
--- OUTSIDE RECORDS SUMMARY | 2025-10-12 21:56 | XMS_ITS | Clinical Summary ---
Author Organization 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 03/23/2024 Active Calcium Carbonate (ANTACID ULTRA STRENGTH) 400 mg calcium (1,000 mg) Oral Tablet, Chewable Take 1,000 mg by mouth daily. 03/23/2024 Active cyanocobalamin 1,000 mcg Oral Tablet Take 1,000 mcg by mouth daily. Active polyethylene glycol (GLYCOLAX, MIRALAX) 17 gram Oral Powder in Packet Take 17 g by mouth daily. 01/27/2024 Active ranolazine (RANEXA) 500 mg Oral Tablet Sustained Release 12 hr Take 1,000 mg by mouth daily. 12/25/2018 Active atorvastatin (LIPITOR) 40 mg Oral Tablet Take 40 mg by mouth nightly. Active nalOXone (NARCAN) 4 mg/actuation Nasl [place], Non-Aerosol 0.1 mL by Nasal route as needed for Opioid Reversal. [place] the contents of one device (0.1mL) into one nostril upon signs of opioid overdose. Call 911. May repeat dose in other nostril if no response within 2-3 minutes. 1 Each 02/04/2025 Active pantoprazole (PROTONIX) 40 mg Oral Tablet, Delayed Release (E.C.) Take 1 Tablet by mouth 2 times daily. 60 Tablet 06/10/2025 Active nortriptyline (PAMELOR) 10 mg Oral Capsule Take 1 Capsule by mouth nightly. 15 Capsule 06/10/2025 Active latanoprost (XALATAN) 0.005 % Opht Drops Apply 1 Drop to eye nightly. 2.5 mL 06/10/2025 Active lidocaine (ASPERCREME) 4 % Top Adhesive Patch, Medicated Place 1 Patch onto the skin daily. 15 Patch 06/11/2025 Active dorzolamide-niels oloL (COSOPT) 22.3-6.8 mg/mL Opht Drops Place 1 Drop into both eyes nightly. instill 1 drop in both eyes at bedtime for glaucoma Active losartan (COZAAR) 25 mg Oral Tablet Take 1 Tablet by mouth daily for 30 days. 30 Tablet 06/29/2025 Active aspirin 81 mg Oral Tablet, Delayed Release (E.C.) 81 mg. 05/19/2024 Active citalopram (CELEXA) 20 mg Oral Tablet 20 mg. 05/19/2024 Active fUROsemide (LASIX) 40 mg Oral TabletIndicatio ns:pulmonary edema due to chronic heart failure Take 40 mg by mouth every 12 hours. Indications: fluid in the lungs due to chronic heart failure Active gabapentin (NEURONTIN) 400 mg Oral Capsule Take by mouth 3 times daily. Active metoprolol (LOPRESSOR) 25 mg Oral Tablet Take 25 mg by mouth 2 times daily. Active oxyCODONE (ROXICODONE) 5 mg Oral Tablet Take 5 mg by mouth every 8 hours as needed. Active Active Problems Problem Noted Date Diagnosed [...] (06/10/2025 5:51 PM EDT): - transferred to [facility] 05/26 with hypotension and hypoxia - pulm edema on cxr - echo with EF 55-60%, indeterminate diastolic function, pulm pressure 41 mmHg - diuresis Assessment & Plan (06/09/2025 11:10 AM EDT): - transferred to [facility] 05/26 with hypotension and hypoxia - pulm edema on cxr - echo with EF 55-60%, indeterminate diastolic function, pulm pressure 41 mmHg - diuresis Assessment & Plan (06/08/2025 11:33 AM EDT): - transferred to [facility] 05/26 with hypotension and hypoxia - pulm edema on cxr - echo with EF 55-60%, indeterminate diastolic function, pulm pressure 41 mmHg - diuresis Assessment & Plan (06/07/2025 12:27 PM EDT): - transferred to [facility] 05/26 with hypotension and hypoxia - pulm edema on cxr - echo with EF 55-60%, indeterminate diastolic function, pulm pressure 41 mmHg - diuresis Assessment & Plan (06/06/2025 3:47 PM EDT): - transferred to [facility] 05/26 with hypotension and hypoxia - pulm edema on cxr - echo with EF 55-60%, indeterminate diastolic function, pulm pressure 41 mmHg - diuresis Assessment & Plan (06/05/2025 12:46 PM EDT): - transferred to [facility] 8/ with hypotension and hypoxia - pulm edema on cxr - echo with EF 55-60%, indeterminate diastolic function, pulm pressure 41 mmHg - diuresis Assessment & Plan (06/04/2025 1:59 PM EDT): - transferred to [facility] 8/ with hypotension and hypoxia [...] (06/02/2025 9:53 AM EDT): - transferred to [facility] 8/ with hypotension and hypoxia - pulm edema on cxr - echo with EF 55-60%, indeterminate diastolic function, pulm pressure 41 mmHg - diurese as below Assessment & Plan (06/01/2025 9:51 AM EDT): - transferred to [facility] 8/ with hypotension and hypoxia - pulm edema on cxr - echo with EF 55-60%, indeterminate diastolic function, pulm pressure 41 mmHg - limited diuresis due to below - on RA now Assessment & Plan (05/31/2025 8:02 AM EDT): - transferred to [facility] 8/ with hypotension and hypoxia - pulm edema on cxr - echo with EF 55-60%, indeterminate diastolic function, pulm pressure 41 mmHg - limited diuresis due to below - remains on 2L now Assessment & Plan (05/30/2025 11:39 AM EDT): - transferred to [facility] 8/ with hypotension and hypoxia [...] (06/10/2025 5:51 PM EDT): - transferred to [facility] 05/26 with hypotension and hypoxia [...] 9:53 AM EDT): - transferred to [facility] 8/ with hypotension and hypoxia - pulm edema on cxr - echo with EF 55-60%, indeterminate diastolic function, pulm pressure 41 mmHg - diurese as below Assessment & Plan (06/01/2025 9:51 AM EDT): - transferred to [facility] 8/ [...] pain remains an issue. No better with SASH FINISHER. Will stop that and adjust prns Assessment [...] pain remains an issue. No better with SASH FINISHER. Will stop that and adjust prns Assessment [...] direction Exostosis of toe 01/19/2025 Atherosclerosis of [place] artery of extremity Constipation 01/15/2025 Assessment & [...] arterial studies 7/17 with significant PAD - SALAD BAR CLERK stenosis Patent popliteal and TPT with severe stenosis Patent proximal REPAIRER TYPEWRITER but occluded distally without reconstitution Patent DAREN with multifocal severe stenosis, occlusion at the level of the ankle and no distal reconstitution Significant small vessel disease in L foot Assessment & Plan (05/19/2025 11:25 AM EDT): History of angiogram 01/2025. - vascular consulted - arterial studies 7/17 with significant PAD - SALAD BAR CLERK stenosis Patent popliteal and TPT with severe stenosis Patent proximal REPAIRER TYPEWRITER but occluded distally without reconstitution Patent DAREN with multifocal severe stenosis, occlusion at the level of the ankle and no distal reconstitution Significant small vessel disease in L foot Assessment & Plan (05/18/2025 8:38 AM EDT): History of angiogram 01/2025. - vascular consulted - arterial studies 7/17 with significant PAD - SALAD BAR CLERK stenosis Patent popliteal and TPT with severe stenosis Patent proximal REPAIRER TYPEWRITER but occluded distally without reconstitution Patent DAREN with multifocal severe stenosis, occlusion at the level of the ankle and no distal reconstitution Significant small vessel disease in L foot Assessment & Plan (05/17/2025 9:16 AM EDT): History of angiogram 01/2025. - vascular consulted - arterial studies 7/17 with significant PAD - SALAD BAR CLERK stenosis Patent popliteal and TPT with severe stenosis Patent proximal REPAIRER TYPEWRITER but occluded distally without reconstitution Patent DAREN with multifocal severe stenosis, occlusion at the level of the ankle and no distal reconstitution Significant small vessel disease in L foot Assessment & Plan (05/16/2025 2:50 PM EDT): History of angiogram 01/2025. - vascular consulted - arterial studies 7/17 with significant PAD - SALAD BAR CLERK stenosis Patent popliteal and TPT with severe stenosis Patent proximal REPAIRER TYPEWRITER but occluded distally without reconstitution Patent DAREN with multifocal severe stenosis, occlusion at the level of the ankle and no distal reconstitution Significant small vessel disease in L foot Assessment & Plan (05/15/2025 2:22 PM EDT): History of angiogram 01/2025. - vascular consulted - arterial studies 7/17 with significant PAD - SALAD BAR CLERK stenosis Patent popliteal and TPT with severe stenosis Patent proximal REPAIRER TYPEWRITER but occluded distally without reconstitution Patent DAREN with multifocal severe stenosis, occlusion at the level of the ankle and no distal reconstitution Significant small vessel disease in L foot Assessment & Plan (05/14/2025 10:10 AM EDT): History of angiogram 01/2025. - vascular consulted - arterial studies 7/17 with significant PAD - SALAD BAR CLERK stenosis Patent popliteal and TPT with severe stenosis Patent proximal REPAIRER TYPEWRITER but occluded distally without reconstitution Patent DAREN with multifocal severe stenosis, occlusion at the level of the ankle and no distal reconstitution Significant small vessel disease in L foot Assessment & Plan (05/13/2025 9:08 AM EDT): History of angiogram 01/2025. - vascular consulted - arterial studies 7/17 with significant PAD - SALAD BAR CLERK stenosis Patent popliteal and TPT with severe stenosis Patent proximal REPAIRER TYPEWRITER but occluded distally without reconstitution Patent DAREN with multifocal severe stenosis, occlusion at the level of the ankle and no distal reconstitution Significant small vessel disease in L foot Assessment & Plan (05/12/2025 10:17 AM EDT): History of angiogram 01/2025. - vascular consulted - arterial studies 7/17 with significant PAD - SALAD BAR CLERK stenosis Patent popliteal and TPT with severe stenosis Patent proximal REPAIRER TYPEWRITER but occluded distally without reconstitution Patent DAREN with multifocal severe stenosis, occlusion at the level of the ankle and no distal reconstitution Significant small vessel disease in L foot Assessment & Plan (05/11/2025 11:59 AM EDT): History of angiogram 01/2025. - vascular consulted - arterial studies 7/17 with significant PAD - SALAD BAR CLERK stenosis Patent popliteal and TPT with severe stenosis Patent proximal REPAIRER TYPEWRITER but occluded distally without reconstitution Patent DAREN [...] & Plan (05/20/2025 12:54 PM EDT): Echo 4 normal EF. Euvolemic on exam - monitor I/O, daily weights - diuresis: REPAIRER TYPEWRITER lasix on hold - REPAIRER TYPEWRITER coreg -Stable 05/20/25 Assessment & Plan (05/19/2025 11:25 AM EDT): Echo 2023 normal EF. Euvolemic on exam - monitor I/O, daily weights - diuresis: REPAIRER TYPEWRITER lasix on hold - REPAIRER TYPEWRITER coreg -Stable 05/19/25 Assessment & Plan (05/18/2025 8:38 AM EDT): Echo 2023 normal EF. Euvolemic on exam - monitor I/O, daily weights - diuresis: REPAIRER TYPEWRITER lasix on hold - REPAIRER TYPEWRITER coreg -Stable 05/18/25 Assessment & Plan (05/17/2025 9:16 AM EDT): Echo 2023 normal EF. Euvolemic on exam - monitor I/O, daily weights - diuresis: REPAIRER TYPEWRITER lasix on hold - REPAIRER TYPEWRITER coreg -Stable 05/17/25 Assessment & Plan (05/16/2025 2:50 PM EDT): Echo 2023 normal EF. Euvolemic on exam - monitor I/O, daily weights - diuresis: REPAIRER TYPEWRITER lasix on hold - REPAIRER TYPEWRITER coreg -Stable 05/16/25 Assessment & Plan (05/15/2025 2:22 PM EDT): Echo 2023 normal EF. Euvolemic on exam - monitor I/O, daily weights - diuresis: REPAIRER TYPEWRITER lasix on hold - REPAIRER TYPEWRITER coreg -Stable 05/15/25 Assessment & Plan (05/14/2025 2:51 PM EDT): Echo 2023 normal EF. Euvolemic on exam - monitor I/O, daily weights - diuresis: REPAIRER TYPEWRITER lasix on hold - REPAIRER TYPEWRITER coreg -Stable 05/14/25 Assessment & Plan (05/13/2025 9:08 AM EDT): Echo 2023 normal EF. Euvolemic on exam - monitor I/O, daily weights - diuresis: REPAIRER TYPEWRITER lasix on hold - REPAIRER TYPEWRITER coreg Assessment & Plan (05/12/2025 10:17 AM EDT): Echo 2023 normal EF. Euvolemic on exam - monitor I/O, daily weights - diuresis: REPAIRER TYPEWRITER lasix on hold - REPAIRER TYPEWRITER coreg Assessment & Plan (05/11/2025 7:12 AM EDT): Echo 2023 normal EF. Euvolemic on exam - monitor I/O, daily weights - diuresis: REPAIRER TYPEWRITER lasix on hold - REPAIRER TYPEWRITER coreg Assessment & Plan (05/10/2025 1:54 PM EDT): Echo 2023 normal EF. Euvolemic on exam - monitor I/O, daily weights - diuresis: REPAIRER TYPEWRITER lasix on hold - REPAIRER TYPEWRITER coreg Assessment & Plan (05/09/2025 7:00 AM EDT): Echo 2023 normal EF. Euvolemic on exam - monitor I/O, daily weights - diuresis: REPAIRER TYPEWRITER lasix on hold - REPAIRER TYPEWRITER coreg Assessment & Plan (05/08/2025 6:56 AM EDT): Echo 2023 normal EF. Euvolemic on exam - monitor I/O, daily weights - diuresis: REPAIRER TYPEWRITER lasix on hold - REPAIRER TYPEWRITER coreg Assessment & Plan (05/07/2025 7:10 AM EDT): Echo 2023 normal EF. Euvolemic on exam - monitor I/O, daily weights - diuresis: REPAIRER TYPEWRITER lasix on hold - REPAIRER TYPEWRITER coreg Assessment & Plan (05/06/2025 9:31 AM EDT): Echo 2023 normal EF. Euvolemic on exam - monitor I/O, daily weights - diuresis: REPAIRER TYPEWRITER lasix on hold - REPAIRER TYPEWRITER coreg Assessment & Plan (05/05/2025 1:00 PM EDT): Echo 2023 normal EF. Euvolemic on exam - monitor I/O, daily weights - diuresis: REPAIRER TYPEWRITER lasix on hold - REPAIRER TYPEWRITER coreg Assessment & Plan (05/05/2025 12:57 PM EDT): Echo 2023 normal EF. Euvolemic on exam - monitor I/O, daily weights - diuresis: REPAIRER TYPEWRITER lasix on hold - REPAIRER TYPEWRITER coreg Assessment & Plan (05/03/2025 6:33 PM [...] Plan (01/15/2025 6:29 AM EDT): -- Lasix REPAIRER TYPEWRITER. Continued -- appears compensated >> stable Assessment & Plan (01/15/2025 6:21 AM EDT): -- Lasix REPAIRER TYPEWRITER. Continued -- appears compensated Assessment & Plan (01/15/2025 6:10 AM EDT): -- Lasix REPAIRER TYPEWRITER. 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 Not on AC d/t hx of SAH - REPAIRER TYPEWRITER coreg - cardiac monitoring -Rate controlled 05/20/25 Assessment & Plan (05/19/2025 11:25 AM EDT): Heart rate controlled. Not on AC d/t hx of SAH - REPAIRER TYPEWRITER coreg - cardiac monitoring -Rate controlled 05/19/25 Assessment & Plan (05/18/2025 8:38 AM EDT): Heart rate controlled. Not on AC d/t hx of SAH - REPAIRER TYPEWRITER coreg - cardiac monitoring -Rate controlled 05/18/25 Assessment & Plan (05/17/2025 9:16 AM EDT): Heart rate controlled. Not on AC d/t hx of SAH - REPAIRER TYPEWRITER coreg - cardiac monitoring -Rate controlled 05/17/25 Assessment & Plan (05/16/2025 2:50 PM EDT): Heart rate controlled. Not on AC d/t hx of SAH - REPAIRER TYPEWRITER coreg - cardiac monitoring -Rate controlled 05/16/25 Assessment & Plan (05/15/2025 2:22 PM EDT): Heart rate controlled. Not on AC d/t hx of SAH - REPAIRER TYPEWRITER coreg - cardiac monitoring -Heart rate 94 Assessment & Plan (05/14/2025 10:10 AM EDT): Heart rate controlled. Not on AC d/t hx of SAH - REPAIRER TYPEWRITER coreg - cardiac monitoring -Heart rate 94 Assessment & Plan (05/13/2025 1:41 PM EDT): Heart rate controlled. Not on AC d/t hx of SAH - REPAIRER TYPEWRITER coreg - cardiac monitoring -Heart rate 94 Assessment & Plan (05/12/2025 10:17 AM EDT): Heart rate controlled. Not on AC d/t hx of SAH - REPAIRER TYPEWRITER coreg - cardiac monitoring -Heart rate 83 Assessment & Plan (05/11/2025 11:59 AM EDT): Heart rate controlled. Not on AC d/t hx of SAH - REPAIRER TYPEWRITER coreg - cardiac monitoring -Heart rate 98 Assessment & Plan (05/10/2025 1:54 PM EDT): Heart rate controlled. Not on AC d/t hx of SAH - REPAIRER TYPEWRITER coreg - cardiac monitoring -Heart rate 83 Assessment & Plan (05/09/2025 10:25 AM EDT): Heart rate controlled. Not on AC d/t hx of SAH - REPAIRER TYPEWRITER coreg - cardiac monitoring -Heart rate 75 Assessment & Plan (05/08/2025 1:05 PM EDT): Heart rate controlled. Not on AC d/t hx of SAH - REPAIRER TYPEWRITER coreg - cardiac monitoring -Heart rate 80 Assessment & Plan (05/07/2025 2:02 PM EDT): Heart rate controlled. Not on AC d/t hx of SAH - REPAIRER TYPEWRITER coreg - cardiac monitoring -Heart rate 81 Assessment & Plan (05/06/2025 9:31 AM EDT): Heart rate controlled. Not on AC d/t hx of SAH - REPAIRER TYPEWRITER coreg - cardiac monitoring Assessment & Plan (05/05/2025 1:00 PM EDT): Heart rate controlled. Not on AC d/t hx of SAH - REPAIRER TYPEWRITER coreg - cardiac monitoring Assessment & Plan (05/05/2025 12:57 PM EDT): Heart rate controlled. Not on AC d/t hx of SAH - REPAIRER TYPEWRITER coreg - cardiac monitoring Assessment & Plan [...] (01/15/2025 6:29 AM EDT): -- Coreg, ASA REPAIRER TYPEWRITER. Continued -- Not on anticoagulation due to his history of subarachnoid hemorrhage and fall risk -- In and out of atrial fibrillation. Assessment & Plan (01/15/2025 6:21 AM EDT): -- Coreg, ASA REPAIRER TYPEWRITER. Continued -- Not on anticoagulation due to his history of subarachnoid hemorrhage and fall risk -- In and out of atrial fibrillation. Assessment & Plan (01/15/2025 6:10 AM EDT): -- Coreg, ASA REPAIRER TYPEWRITER. Continued -- Not on anticoagulation due to his history of subarachnoid hemorrhage and fall risk -- In and out of atrial fibrillation. Assessment & Plan (01/12/2025 10:29 PM EDT): -- Coreg, ASA REPAIRER TYPEWRITER Carotid stenosis, symptomatic w/o infarct, bilat eral 04/28/2023 Overview (01/12/2025): Last Assessment & Plan: Carotid duplex from 05/10/2023- bilateral carotid artery stenosis (50-69%). A referral to CT surgery was sent by Shannon Flor APRN at last office visit. She is scheduled to see Dr. Alcantara on 06/06/2023. Assessment & Plan (01/28/2025 9:59 AM EDT): -- ASA, Lipitor REPAIRER TYPEWRITER. Continued. Following Assessment & Plan (01/27/2025 2:14 PM EDT): -- ASA, Lipitor REPAIRER TYPEWRITER. Continued. Following Assessment & Plan (01/26/2025 12:09 PM EDT): -- ASA, Lipitor REPAIRER TYPEWRITER. Continued. Following Assessment & Plan (01/25/2025 12:22 PM EDT): -- ASA, Lipitor REPAIRER TYPEWRITER. Continued. Following Assessment & Plan (01/24/2025 9:38 AM EDT): -- ASA, Lipitor REPAIRER TYPEWRITER. Continued. Following Assessment & Plan (01/23/2025 1:07 PM EDT): -- ASA, Lipitor REPAIRER TYPEWRITER. Continued. Following Assessment & Plan (01/22/2025 10:03 AM EDT): -- ASA, Lipitor REPAIRER TYPEWRITER. Continued. Following Assessment & Plan (01/21/2025 12:19 PM EDT): -- ASA, Lipitor REPAIRER TYPEWRITER. Continued. Following Assessment & Plan (01/20/2025 2:21 PM EDT): -- ASA, Lipitor REPAIRER TYPEWRITER. Continued. Following Assessment & Plan (01/19/2025 1:36 PM EDT): -- ASA, Lipitor REPAIRER TYPEWRITER. Continued. Following Assessment & Plan (01/18/2025 1:04 PM EDT): -- ASA, Lipitor REPAIRER TYPEWRITER. Continued. Following Assessment & Plan (01/17/2025 1:00 PM EDT): -- ASA, Lipitor REPAIRER TYPEWRITER. Continued. Following Assessment & Plan (01/16/2025 9:59 AM EDT): -- ASA, Lipitor REPAIRER TYPEWRITER. Continued. Following Assessment & Plan (01/15/2025 11:35 AM EDT): -- ASA, Lipitor REPAIRER TYPEWRITER. Continued. Following Assessment & Plan (01/15/2025 6:29 AM EDT): -- ASA, Lipitor REPAIRER TYPEWRITER. Continued Assessment & Plan (01/15/2025 6:21 AM EDT): -- ASA, Lipitor REPAIRER TYPEWRITER Assessment & Plan (01/15/2025 6:10 AM EDT): -- ASA, Lipitor REPAIRER TYPEWRITER Assessment & Plan (01/12/2025 10:29 PM EDT): -- ASA, Lipitor REPAIRER TYPEWRITER Coronary arteriosclerosis in [place] artery // Hx of CABG 04/09/2016 Overview [...] AM EDT): -- Coreg, Lipitor, ASA, [place] REPAIRER TYPEWRITER. Continued Assessment & Plan (01/15/2025 6:21 AM EDT): -- Coreg, Lipitor, ASA, [place] REPAIRER TYPEWRITER. Continued Assessment & Plan (01/15/2025 6:10 AM EDT): -- Coreg, Lipitor, ASA, [place] REPAIRER TYPEWRITER. Continued -- CP -- Cardiology consulted -- [...] PM EDT): -- Coreg, Lipitor, ASA, [place] REPAIRER TYPEWRITER Secondary open-angle glaucoma of right eye, ileana [...] PM EDT): Last A1c 4.8 in 03/2024. REPAIRER TYPEWRITER meds include none. - hold off on FSBS, correctional algorithm - rpt A1c 5.3 - stable 05/20/25 Assessment & Plan (05/19/2025 3:11 PM EDT): Last A1c 4.8 in 03/2024. REPAIRER TYPEWRITER meds include none. - hold off on FSBS, correctional algorithm - rpt A1c 5.3 - stable 05/19/25 Assessment & Plan (05/18/2025 8:38 AM EDT): Last A1c 4.8 in 03/2024. REPAIRER TYPEWRITER meds include none. - hold off on FSBS, correctional algorithm - rpt A1c 5.3 Assessment & Plan (05/17/2025 9:16 AM EDT): Last A1c 4.8 in 03/2024. REPAIRER TYPEWRITER meds include none. - hold off on FSBS, correctional algorithm - rpt A1c 5.3 Assessment & Plan (05/16/2025 2:50 PM EDT): Last A1c 4.8 in 03/2024. REPAIRER TYPEWRITER meds include none. - hold off on FSBS, correctional algorithm - rpt A1c 5.3 Assessment & Plan (05/15/2025 2:22 PM EDT): Last A1c 4.8 in 03/2024. REPAIRER TYPEWRITER meds include none. - hold off on FSBS, correctional algorithm - rpt A1c 5.3 Assessment & Plan (05/14/2025 10:10 AM EDT): Last A1c 4.8 in 03/2024. REPAIRER TYPEWRITER meds include none. - hold off on FSBS, correctional algorithm - rpt A1c 5.3 Assessment & Plan (05/13/2025 9:08 AM EDT): Last A1c 4.8 in 03/2024. REPAIRER TYPEWRITER meds include none. - hold off on FSBS, correctional algorithm - rpt A1c 5.3 Assessment & Plan (05/12/2025 10:17 AM EDT): Last A1c 4.8 in 03/2024. REPAIRER TYPEWRITER meds include none. - hold off on FSBS, correctional algorithm - rpt A1c 5.3 Assessment & Plan (05/11/2025 7:12 AM EDT): Last A1c 4.8 in 03/2024. REPAIRER TYPEWRITER meds include none. - hold off on FSBS, correctional algorithm - rpt A1c 5.3 Assessment & Plan (05/10/2025 1:54 PM EDT): Last A1c 4.8 in 03/2024. REPAIRER TYPEWRITER meds include none. - hold off on FSBS, correctional algorithm - rpt A1c 5.3 Assessment & Plan (05/09/2025 7:00 AM EDT): Last A1c 4.8 in 03/2024. REPAIRER TYPEWRITER meds include none. - hold off on FSBS, correctional algorithm - rpt A1c 5.3 Assessment & Plan (05/08/2025 6:56 AM EDT): Last A1c 4.8 in 03/2024. REPAIRER TYPEWRITER meds include none. - hold off on FSBS, correctional algorithm - rpt A1c 5.3 Assessment & Plan (05/07/2025 7:10 AM EDT): Last A1c 4.8 in 03/2024. REPAIRER TYPEWRITER meds include none. - hold off on FSBS, correctional algorithm - rpt A1c 5.3 Assessment & Plan (05/06/2025 9:31 AM EDT): Last A1c 4.8 in 03/2024. REPAIRER TYPEWRITER meds include none. - hold off on FSBS, correctional algorithm - rpt A1c 5.3 Assessment & Plan (05/05/2025 1:00 PM EDT): Last A1c 4.8 in 03/2024. REPAIRER TYPEWRITER meds include none. - hold off on FSBS, correctional algorithm - note metformin started - will stop given plans for angiogram this week - rpt A1c ordered Assessment & Plan (05/05/2025 12:57 PM EDT): Last A1c 4.8 in 03/2024. REPAIRER TYPEWRITER meds include none. - hold off on [...] Plan (01/28/2025 9:59 AM EDT): -- Lipitor REPAIRER TYPEWRITER. Continued home meds Assessment & Plan (01/27/2025 2:14 PM EDT): -- Lipitor REPAIRER TYPEWRITER. Continued home meds Assessment & Plan (01/26/2025 12:09 PM EDT): -- Lipitor REPAIRER TYPEWRITER. Continued home meds Assessment & Plan (01/25/2025 12:22 PM EDT): -- Lipitor REPAIRER TYPEWRITER. Continued home meds Assessment & Plan (01/24/2025 9:38 AM EDT): -- Lipitor REPAIRER TYPEWRITER. Continued home meds Assessment & Plan (01/23/2025 1:07 PM EDT): -- Lipitor REPAIRER TYPEWRITER. Continued home meds Assessment & Plan (01/22/2025 10:03 AM EDT): -- Lipitor REPAIRER TYPEWRITER. Continued home meds Assessment & Plan (01/21/2025 12:19 PM EDT): -- Lipitor REPAIRER TYPEWRITER. Continued home meds Assessment & Plan (01/20/2025 2:21 PM EDT): -- Lipitor REPAIRER TYPEWRITER. Continued home meds Assessment & Plan (01/19/2025 1:36 PM EDT): -- Lipitor REPAIRER TYPEWRITER. Continued home meds Assessment & Plan (01/18/2025 1:04 PM EDT): -- Lipitor REPAIRER TYPEWRITER. Continued home meds Assessment & Plan (01/17/2025 1:00 PM EDT): -- Lipitor REPAIRER TYPEWRITER. Continued home meds Assessment & Plan (01/16/2025 9:59 AM EDT): -- Lipitor REPAIRER TYPEWRITER. Continued home meds Assessment & Plan (01/15/2025 11:35 AM EDT): -- Lipitor REPAIRER TYPEWRITER. Continued home meds Assessment & Plan (01/15/2025 6:29 AM EDT): -- Lipitor REPAIRER TYPEWRITER. Continued Assessment & Plan (01/15/2025 6:21 AM EDT): -- Lipitor REPAIRER TYPEWRITER Assessment & Plan (01/15/2025 6:10 AM EDT): -- Lipitor REPAIRER TYPEWRITER Assessment & Plan (01/12/2025 10:29 PM EDT): -- Lipitor REPAIRER TYPEWRITER Hypertension associated with diabetes 09/30/2014 Overview (06/04/2024): [...] (05/20/2025 12:54 PM EDT): Well controlled. - REPAIRER TYPEWRITER coreg - monitor and adjust as needed -BP stable 05/20/25 Assessment & Plan (05/19/2025 11:25 AM EDT): Well controlled. - REPAIRER TYPEWRITER coreg - monitor and adjust as needed -BP stable 05/19/25 Assessment & Plan (05/18/2025 8:38 AM EDT): Well controlled. - REPAIRER TYPEWRITER coreg - monitor and adjust as needed -BP stable 05/18/25 Assessment & Plan (05/17/2025 9:16 AM EDT): Well controlled. - REPAIRER TYPEWRITER coreg - monitor and adjust as needed -BP stable 05/17/25 Assessment & Plan (05/16/2025 2:50 PM EDT): Well controlled. - REPAIRER TYPEWRITER coreg - monitor and adjust as needed -BP stable 05/16/25 Assessment & Plan (05/15/2025 2:22 PM EDT): Well controlled. - REPAIRER TYPEWRITER coreg - monitor and adjust as needed -BP stable 05/15/25 Assessment & Plan (05/14/2025 2:51 PM EDT): Well controlled. - REPAIRER TYPEWRITER coreg - monitor and adjust as needed -BP stable 05/14/25 Assessment & Plan (05/13/2025 1:41 PM EDT): Well controlled. - REPAIRER TYPEWRITER coreg - monitor and adjust as needed -Blood pressure 113/46 Assessment & Plan (05/12/2025 10:17 AM EDT): Well controlled. - REPAIRER TYPEWRITER coreg - monitor and adjust as needed -Blood pressure 122/57 Assessment & Plan (05/11/2025 7:12 AM EDT): Well controlled. - REPAIRER TYPEWRITER coreg - monitor and adjust as needed -Blood pressure 116/76 Assessment & Plan (05/10/2025 1:54 PM EDT): Well controlled. - REPAIRER TYPEWRITER coreg - monitor and adjust as needed -Blood pressure 116/76 Assessment & Plan (05/09/2025 10:25 AM EDT): Well controlled. - REPAIRER TYPEWRITER coreg - monitor and adjust as needed -Blood pressure 128/66 Assessment & Plan (05/08/2025 1:05 PM EDT): Well controlled. - REPAIRER TYPEWRITER coreg - monitor and adjust as needed -Blood pressure 124/66 Assessment & Plan (05/07/2025 7:10 AM EDT): Well controlled. - REPAIRER TYPEWRITER coreg - monitor and adjust as needed Assessment & Plan (05/06/2025 9:31 AM EDT): Well controlled. - REPAIRER TYPEWRITER coreg - monitor and adjust as needed Assessment & Plan (05/05/2025 1:00 PM EDT): Well controlled. - REPAIRER TYPEWRITER coreg - monitor and adjust as needed Assessment & Plan (05/05/2025 12:57 PM EDT): Well controlled. - REPAIRER TYPEWRITER coreg - monitor and adjust as needed [...] Plan (01/20/2025 2:21 PM EDT): -- Coreg REPAIRER TYPEWRITER. Continued -- In acceptable range. Stable. BP Readings from Last 1 Encounters: 01/20/25 109/62 Assessment & Plan (01/19/2025 1:36 PM EDT): -- Coreg REPAIRER TYPEWRITER. Continued -- In acceptable range. Stable. BP Readings from Last 1 Encounters: 01/19/25 100/42 Assessment & Plan (01/18/2025 1:04 PM EDT): -- Coreg REPAIRER TYPEWRITER. Continued -- In acceptable range. Stable. BP Readings from Last 1 Encounters: 01/18/25 106/41 Assessment & Plan (01/17/2025 1:00 PM EDT): -- Coreg REPAIRER TYPEWRITER. Continued -- In acceptable range. Stable. BP Readings from Last 1 Encounters: 01/17/25 119/46 Assessment & Plan (01/16/2025 9:59 AM EDT): -- Coreg REPAIRER TYPEWRITER. Continued -- In acceptable range. Stable. BP Readings from Last 1 Encounters: 01/16/25 144/54 Assessment & Plan (01/15/2025 11:35 AM EDT): -- Coreg REPAIRER TYPEWRITER. Continued -- In acceptable range BP Readings from Last 1 Encounters: 01/15/25 125/54 Assessment & Plan (01/15/2025 6:29 AM EDT): -- Coreg REPAIRER TYPEWRITER. Continued -- In acceptable range Assessment & Plan (01/15/2025 6:21 AM EDT): -- Coreg REPAIRER TYPEWRITER -- In acceptable range Assessment & Plan (01/15/2025 6:10 AM EDT): -- Coreg REPAIRER TYPEWRITER Assessment & Plan (01/12/2025 10:29 PM EDT): -- Coreg REPAIRER TYPEWRITER Cervical disc disease 09/30/2014 Peripheral neuropathy 09/30/2014 Overview (01/12/2025): Continue outpatient management Resolved Problems Problem Noted Date Diagnosed Date Resolved Date Acute heart failure with pre served ejection fraction 06/02/2025 06/02/2025 Pleural effusion 06/04/2024 06/04/2024 Encounters Date Type Department Care Team Description 08/28/2025 12:48 PM EST Anesthesia Event [facility] [place] [address] Ramón Dennison MD Record, Felicia M, IN HOME BABY SITTER 08/28/2025 10:06 AM EST - 08/28/2025 11:59 PM EST Hospital Encounter [facility] [place] [address] Vargas Wolf MD Cooney, Sean, CRNA Adkins, Braxton, MD PAD (peripheral artery disease); Critical limb ischemia of left lower extremity (HCC) Discharge Disposition: Home or Self Care 08/21/2025 Telephone [facility] [address] [place] [address] [place] [phone] Mary Lombardi MA Procedure (Angiogram Details ) 08/21/2025 Orders Only [facility] [address] [place] [address] [place] [phone] Mary Lombardi MA PAD (peripheral artery disease) (Primary Dx); Critical limb ischemia of left lower extremity (HCC) 08/19/2025 2:00 PM EST Office Visit [facility] [address] [place] [address] [place] [phone] Vargas Wolf MD PAD (peripheral artery disease) (Primary Dx) 08/05/2025 3:45 PM EDT Office Visit [facility] [address] [place] [phone] Vargas Wolf MD PAD (peripheral artery disease) (Primary Dx); Critical limb ischemia of left lower extremity (HCC) from Last 3 Months Surgical History Surgery [...] IR REVAS FEM POP ART UNILAT W REPAIRER TYPEWRITER 01/30/2025 IR REVAS FEM POP ART UNILAT W REPAIRER TYPEWRITER 01/30/2025 Vargas Wolf MD [facility] CARDIAC [...] MD; Location: [facility]IN [facility]; Service: Vascular IR ANGIOGRAM FEMORAL ARTERIO SHIFT 08/28/2025 IR ANGIOGRAM FEMORAL ARTERIO SHIFT 08/28/2025 Vargas Wolf MD [facility] IR ABDOMINAL AORTOGRAM SERIALOGRAM 08/28/2025 IR ABDOMINAL AORTOGRAM SERIALOGRAM 08/28/2025 Vargas Wolf MD [facility] IR REVAS FEM POP ART UNILAT W REPAIRER TYPEWRITER 08/28/2025 IR REVAS FEM POP ART UNILAT W REPAIRER TYPEWRITER 08/28/2025 Vargas Wolf MD [facility] IR ULTRASOUND GUIDED VASCULA R ACCESS 08/28/2025 IR ULTRASOUND GUIDED VASCULAR ACCESS 08/28/2025 Vargas Wolf MD [facility] IR Medical History Medical History Date Comments A-fib [...] 0.6 oz pur e alcohol) [facility] Utilities Answer Date Recorded In [...] Score 0 06/23/2025 [facility] [place] [facility] Occupat ional Health - Occupational Stress [...] to get more. Never true 06/23/2025 [facility] [...] Mass Index 19.75 08/28/2025 10:26 AM EST Plan of Treatment Health Maintenance [...] Lipids 06/24/2026 06/24/2025, 03/09/2024 Kidney Health: eGFR 08/28/2026 08/28/2025, 07/01/2025, 06/30/2025, Additional history exists DTaP/TDaP/Td (2 - Td or Tdap) 01/19/2034 01/20/2024, 07/26/2011, 07/07/2005 Pneumococcal Vaccine 50+ Completed 017, 07/26/2013, 07/23/2010, Additional history exists Hepatitis B Vaccine Aged Out No longe r eligible based on patient's age to complete this topic Meningococcal B Vaccine Aged Out No l onger eligible based on patient's age to complete this topic Medical Devices Implanted Type Area Lavatory Attendant Device Identifier Shelf Expiration Date Model / Serial / Lot Stent Omnilink Elite [id number] Otw Be Prmnt 0.035in Gw 6fr Stent-Omn ilink [facility]:VASC DEV 01/14/2026 [id number] / / [id number] Stent Omnilink Elite [id number] Otw Be Prmnt 0.035in Gw 6fr Stent-Omn ilink [employer] LAB:VASC DEV 01/14/2026 [id number] / / [id number] Mtrx Tiss 23ga Viaflow Hmn Plcnt Flw Premx Amb Temp Ndl 2cc - [id number] Implanted:Qty: 1 on 03/09/2025 by Dacia Mills DPM at [facility] Left: [facility] [employer] GRP:[id number] TECH 11/10/2028 [id number] / [id number] / Procedures Procedure Name Priority Date/Time Associated Diagnosis Comments GLUCOSE METER POC Routine 08/28/2025 3:2 1 PM EST IR ULTRASOUND GUIDED VASCULAR ACCESS Routine 08/28/2025 3:01 PM EST PAD (peripheral artery disease) IR REVAS FEM POP ART UNILAT W REPAIRER TYPEWRITER Routine 08/28/2025 3:01 PM EST PAD (peripheral artery disease) IR REVAS TIB PER ART UNILAT INIT VES W REPAIRER TYPEWRITER Routine 08/28/2025 3:01 PM EST PAD (peripheral artery disease) IR ABDOMINAL AORTOGRAM SERIALOGRAM Routine 08/28/2025 3:01 PM EST PAD (peripheral artery disease) Critical limb ischemia of left lower extremity (HCC) IR ANGIOGRAM FEMORAL ARTERIO SHIFT Routine 08/28/2025 3:01 PM EST PAD (peripheral artery disease) Critical limb ischemia of left lower extremity (HCC) INTRAOP AIRWAY PLACEMENT Routine 08/28/2025 12:57 PM EST BASIC METABOLIC PANEL STAT 08/28/2025 10:49 AM EST PAD (peripheral artery disease) Critical limb ischemia of left lower extremity (HCC) TRIGLYCERIDES Routine 06/24/2025 5:10 AM EDT HEMOGLOBIN A1C Routine 05/03/2025 6:37 AM EDT from Last 3 Months or Most Recently Relevant to Health Maintenance Results * (ABNORMAL) GLUCOSE METER POC (08/28/2025 3:21 PM EST) [facility] Glucose Meter POC 120(H) 70 - 100 mg/dL 08/28/2025 3:23 PM EST [facility] Sample Type Capillary 08/28/2025 3:23 PM EST [facility] Patient Status Non-Critical Patient 08/28/2025 3:23 PM EST [facility] Blood BLOOD SPECIMEN / Unknown 08/28/2025 3:21 PM EST 08/28/2025 3:23 PM EST us Vargas Wolf MD POINT OF CARE TEST ORDERABL ES Final Result [facility] [address] [address] * IR REVAS TIB PER ART UNILAT INIT VES W REPAIRER TYPEWRITER (08/28/2025 3:01 PM EST) Anatomical Region Laterality Modality Interventional R adiology Narrative 09/28/2025 12:06 PM EST DATE OF PROCEDURE: 08/28/2025 PREOPERATIVE DIAGNOSES: RLE critical limb ischemia with rest pain POSTOPERATIVE DIAGNOSES: Same PROCEDURE PERFORMED: 1. US guided access of the left common femoral artery 2. Abdominal aortogram. Right lower extremity angiogram. Radiographic supervision and interpretation 3. REPAIRER TYPEWRITER of SFA with 4 x 120 mm balloon 4. REPAIRER TYPEWRITER of DAREN with 2 x 60 mm and 2.5 x 120 mm balloons Mynx closure of 6 Fr arteriotomy SURGEON: Vargas Wolf MD ANESTHESIA: General anesthesia FLUOROSCOPY: Dose: 292 mGy, Time: 19.6 min CONTRAST: 67 ml ESTIMATED BLOOD LOSS: 5 mL SPECIMENS: None COMPLICATIONS: None FINDINGS: Access site was patent but significant disease in mid and distal SALAD BAR CLERK AORTA: Patent infrarenal aorta and bilateral renal [...] trunk with severe stenosis at ostium. Occluded REPAIRER TYPEWRITER proximally for a few cm with reconstitution [...] significant disease in the mid and distal SALAD BAR CLERK, so decision was made to access the proximal SALAD BAR CLERK. Under ultrasound guidance, the L SALAD BAR CLERK was accessed using a micropuncture needle. X-ray [...] sheath which was advanced to the R SALAD BAR CLERK. Angiogram was obtained. A wire and catheter were advanced into the popliteal artery. Angiogram confirmed intraluminal position. REPAIRER TYPEWRITER of the SFA was performed with a [...] the mid DAREN. Angiogram confirmed intraluminal position. REPAIRER TYPEWRITER of the proximal DAREN was performed with a 2.5 x 120 mm balloon under fluoro. Angiogram revealed no residual flow-limiting stenosis. The wire and catheter were advanced into the distal DAREN. Angiogram confirmed intraluminal position. REPAIRER TYPEWRITER of the distal DAREN was performed with a 2 x 60 mm balloon. Angiogram revealed residual stenosis. REPAIRER TYPEWRITER of the distal DAREN was performed with [...] DAREN RECOMMENDATIONS: Bed rest for 3 hours. [email or web address] Voice recognition technology was used to complete this note, and it may contain unintended errors despite the tech writer's best efforts to proofread it. Please contact me with questions. TID: [id number] us Vargas Wolf MD IMG IR ORDERABLES Final Res ult * IR REVAS FEM POP ART UNILAT W REPAIRER TYPEWRITER (08/28/2025 3:01 PM EST) Anatomical Region Laterality Modality Interventional R adiology Narrative 09/28/2025 12:06 PM EST DATE OF PROCEDURE: 08/28/2025 PREOPERATIVE DIAGNOSES: RLE critical limb ischemia with rest pain POSTOPERATIVE DIAGNOSES: Same PROCEDURE PERFORMED: 1. US guided access of the left common femoral artery 2. Abdominal aortogram. Right lower extremity angiogram. Radiographic supervision and interpretation 3. REPAIRER TYPEWRITER of SFA with 4 x 120 mm balloon 4. REPAIRER TYPEWRITER of DAREN with 2 x 60 mm and 2.5 x 120 mm balloons Mynx closure of 6 Fr arteriotomy SURGEON: Vargas Wolf MD ANESTHESIA: General anesthesia FLUOROSCOPY: Dose: 292 mGy, Time: 19.6 min CONTRAST: 67 ml ESTIMATED BLOOD LOSS: 5 mL SPECIMENS: None COMPLICATIONS: None FINDINGS: Access site was patent but significant disease in mid and distal SALAD BAR CLERK AORTA: Patent infrarenal aorta and bilateral renal [...] trunk with severe stenosis at ostium. Occluded REPAIRER TYPEWRITER proximally for a few cm with reconstitution [...] significant disease in the mid and distal SALAD BAR CLERK, so decision was made to access the proximal SALAD BAR CLERK. Under ultrasound guidance, the L SALAD BAR CLERK was accessed using a micropuncture needle. X-ray [...] sheath which was advanced to the R SALAD BAR CLERK. Angiogram was obtained. A wire and catheter were advanced into the popliteal artery. Angiogram confirmed intraluminal position. REPAIRER TYPEWRITER of the SFA was performed with a [...] the mid DAREN. Angiogram confirmed intraluminal position. REPAIRER TYPEWRITER of the proximal DAREN was performed with a 2.5 x 120 mm balloon under fluoro. Angiogram revealed no residual flow-limiting stenosis. The wire and catheter were advanced into the distal DAREN. Angiogram confirmed intraluminal position. REPAIRER TYPEWRITER of the distal DAREN was performed with a 2 x 60 mm balloon. Angiogram revealed residual stenosis. REPAIRER TYPEWRITER of the distal DAREN was performed with [...] DAREN RECOMMENDATIONS: Bed rest for 3 hours. [email or web address] Voice recognition technology was used to complete this note, and it may contain unintended errors despite the tech writer's best efforts to proofread it. Please contact me with questions. TID: [id number] us Vargas Wolf MD IMG IR ORDERABLES Final Res ult * IR ULTRASOUND GUIDED VASCULAR ACCESS (08/28/2025 3:01 PM EST) Anatomical Region Laterality Modality Interventional R adiology Narrative 09/28/2025 12:06 PM EST DATE OF PROCEDURE: 08/28/2025 PREOPERATIVE DIAGNOSES: RLE critical limb ischemia with rest pain POSTOPERATIVE DIAGNOSES: Same PROCEDURE PERFORMED: 1. US guided access of the left common femoral artery 2. Abdominal aortogram. Right lower extremity angiogram. Radiographic supervision and interpretation 3. REPAIRER TYPEWRITER of SFA with 4 x 120 mm balloon 4. REPAIRER TYPEWRITER of DAREN with 2 x 60 mm and 2.5 x 120 mm balloons Mynx closure of 6 Fr arteriotomy SURGEON: Vargas Wolf MD ANESTHESIA: General anesthesia FLUOROSCOPY: Dose: 292 mGy, Time: 19.6 min CONTRAST: 67 ml ESTIMATED BLOOD LOSS: 5 mL SPECIMENS: None COMPLICATIONS: None FINDINGS: Access site was patent but significant disease in mid and distal SALAD BAR CLERK AORTA: Patent infrarenal aorta and bilateral renal [...] trunk with severe stenosis at ostium. Occluded REPAIRER TYPEWRITER proximally for a few cm with reconstitution [...] significant disease in the mid and distal SALAD BAR CLERK, so decision was made to access the proximal SALAD BAR CLERK. Under ultrasound guidance, the L SALAD BAR CLERK was accessed using a micropuncture needle. X-ray [...] sheath which was advanced to the R SALAD BAR CLERK. Angiogram was obtained. A wire and catheter were advanced into the popliteal artery. Angiogram confirmed intraluminal position. REPAIRER TYPEWRITER of the SFA was performed with a [...] the mid DAREN. Angiogram confirmed intraluminal position. REPAIRER TYPEWRITER of the proximal DAREN was performed with a 2.5 x 120 mm balloon under fluoro. Angiogram revealed no residual flow-limiting stenosis. The wire and catheter were advanced into the distal DAREN. Angiogram confirmed intraluminal position. REPAIRER TYPEWRITER of the distal DAREN was performed with a 2 x 60 mm balloon. Angiogram revealed residual stenosis. REPAIRER TYPEWRITER of the distal DAREN was performed with [...] DAREN RECOMMENDATIONS: Bed rest for 3 hours. [email or web address] Voice recognition technology was used to complete this note, and it may contain unintended errors despite the tech writer's best efforts to proofread it. Please contact me with questions. TID: [id number] us Vargas Wolf MD IMG IR ORDERABLES [...] extremity angiogram. Radiographic supervision and interpretation 3. REPAIRER TYPEWRITER of SFA with 4 x 120 mm balloon 4. REPAIRER TYPEWRITER of DAREN with 2 x 60 mm and 2.5 x 120 mm balloons Mynx closure of 6 Fr arteriotomy SURGEON: Vargas Wolf MD ANESTHESIA: General anesthesia FLUOROSCOPY: Dose: 292 mGy, Time: 19.6 min CONTRAST: 67 ml ESTIMATED BLOOD LOSS: 5 mL SPECIMENS: None COMPLICATIONS: None FINDINGS: Access site was patent but significant disease in mid and distal SALAD BAR CLERK AORTA: Patent infrarenal aorta and bilateral renal [...] trunk with severe stenosis at ostium. Occluded REPAIRER TYPEWRITER proximally for a few cm with reconstitution [...] significant disease in the mid and distal SALAD BAR CLERK, so decision was made to access the proximal SALAD BAR CLERK. Under ultrasound guidance, the L SALAD BAR CLERK was accessed using a micropuncture needle. X-ray [...] sheath which was advanced to the R SALAD BAR CLERK. Angiogram was obtained. A wire and catheter were advanced into the popliteal artery. Angiogram confirmed intraluminal position. REPAIRER TYPEWRITER of the SFA was performed with a [...] the mid DAREN. Angiogram confirmed intraluminal position. REPAIRER TYPEWRITER of the proximal DAREN was performed with a 2.5 x 120 mm balloon under fluoro. Angiogram revealed no residual flow-limiting stenosis. The wire and catheter were advanced into the distal DAREN. Angiogram confirmed intraluminal position. REPAIRER TYPEWRITER of the distal DAREN was performed with a 2 x 60 mm balloon. Angiogram revealed residual stenosis. REPAIRER TYPEWRITER of the distal DAREN was performed with [...] it may contain unintended errors despite the tech writer's best efforts to proofread it. Please contact me with questions. TID: [id number] us Vargas Wolf MD IMG IR ORDERABLES [...] extremity angiogram. Radiographic supervision and interpretation 3. REPAIRER TYPEWRITER of SFA with 4 x 120 mm balloon 4. REPAIRER TYPEWRITER of DAREN with 2 x 60 mm and 2.5 x 120 mm balloons Mynx closure of 6 Fr arteriotomy SURGEON: Vargas Wolf MD ANESTHESIA: General anesthesia FLUOROSCOPY: Dose: 292 mGy, Time: 19.6 min CONTRAST: 67 ml ESTIMATED BLOOD LOSS: 5 mL SPECIMENS: None COMPLICATIONS: None FINDINGS: Access site was patent but significant disease in mid and distal SALAD BAR CLERK AORTA: Patent infrarenal aorta and bilateral renal [...] trunk with severe stenosis at ostium. Occluded REPAIRER TYPEWRITER proximally for a few cm with reconstitution [...] significant disease in the mid and distal SALAD BAR CLERK, so decision was made to access the proximal SALAD BAR CLERK. Under ultrasound guidance, the L SALAD BAR CLERK was accessed using a micropuncture needle. X-ray [...] sheath which was advanced to the R SALAD BAR CLERK. Angiogram was obtained. A wire and catheter were advanced into the popliteal artery. Angiogram confirmed intraluminal position. REPAIRER TYPEWRITER of the SFA was performed with a [...] the mid DAREN. Angiogram confirmed intraluminal position. REPAIRER TYPEWRITER of the proximal DAREN was performed with a 2.5 x 120 mm balloon under fluoro. Angiogram revealed no residual flow-limiting stenosis. The wire and catheter were advanced into the distal DAREN. Angiogram confirmed intraluminal position. REPAIRER TYPEWRITER of the distal DAREN was performed with a 2 x 60 mm balloon. Angiogram revealed residual stenosis. REPAIRER TYPEWRITER of the distal DAREN was performed with [...] DAREN RECOMMENDATIONS: Bed rest for 3 hours. [email or web address] Voice recognition technology was used to complete this note, and it may contain unintended errors despite the tech writer's best efforts to proofread it. Please contact me with questions. TID: [id number] us Vargas Wolf MD [facility] IR ORDERABLES Final Res ult * INTRAOP AIRWAY PLACEMENT (08/28/2025 12:57 PM EST) Narrative [facility] - 08/28/2025 12:57 PM EST [...] Unchanged and Atraumatic Insertion attempts: 1 Title: VICE PRESIDENT RESEARCH us Abdelrahman Gonsales MD MT ANESTHESIA Final Result [facility] [address] [id number] * (ABNORMAL) BASIC METABOLIC PANEL (08/28/2025 10:49 [...] recommended by the National Kidney Foundation - [place] [employer] of Nephrology Task Force. Blood VENOUS BLOOD / Unknown Venipuncture / Unknown 08/28/2025 10:49 AM EST 08/28/2025 10:54 AM EST us Vargas Wolf MD CHEMISTRY ORDERABLES Final Result Performing Organization Address City/[facility]/ZIP Co de Phone Number [facility] [address], [place] [address] * TRIGLYCERIDES (06/24/2025 5:10 AM EDT) Pathologist [facility] Triglyceride 107 <150 mg/dL 06/24/2025 8:05 AM EDT [facility] Comment: < 150 Normal 150 - 199 Borderline High 200 - 499 High >= 500 Very High Blood VENOUS BLOOD / Unknown Venipuncture / Unknown 06/24/2025 5:10 AM EDT 06/24/2025 5:32 AM EDT us Donnie Esqueda MD CHEMISTRY ORDERABLES Final Re sult Performing Organization Address City/[facility]/ZIP Co de Phone Number [facility] [address] [facility] [address] , [place] [address] * HEMOGLOBIN A1C (05/03/2025 6:37 AM EDT) Pathologist [facility] Hgb A1C 5.3 4.2 - 5.6 % 05/05/2025 3:53 PM EDT [facility] Est. Avg Glucose 105 mg/dL 05/05/2025 3:53 PM EDT [facility] Blood VENOUS BLOOD / Unknown Venipuncture / Unknown 05/03/2025 6:37 AM EDT 05/03/2025 7:14 AM EDT Narrative [facility] - 05/05/2025 3:53 PM EDT REFERENCE RANGE: Normal: 4.0-5.6% Pre-diabetes: 5.7-6.4% Provisional diagnosis of diabetes: >6.4% Hgb F>10% and anything which shortens red cell survival, such as hemolytic anemia, or unstable hemoglobin variants such as HbSS, HbSC, or HbCC, will lower the HbA1c value associated with a given level of glycemic control. 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
--- OUTSIDE RECORDS SUMMARY | 2025-10-12 21:56 | XMS_ITS | Encounter Summary ---
Author Organization [employer] ([place], [place], [place], [place], [place]) Address [address] [place] [address] Care Team Providers Care Cheese Maker Name Role Phone Jay Howell MD Primary Care Provider [phone] Encounter Details Date Type Department Care Team (Late st Contact Info) Description 08/27/2020 Transcribed Document [facility] [place] [facility] [place] [address] [place] [address] ProviderJessie MD [address] [place] [address] [phone] Social History Tobacco Use Types Packs/Day Years Used Date Smoking Tobacco: Never Assessed Comments Unknown Sex and Gender Information Value Date Recorded Sex Assigned at Not on file Legal Sex Female 7:30 PM CDT Gender Identity Not on file Sexual Orientation Not on file documented as of this encounter Miscellaneous Notes * Cerner Conversion Note - Jessie ProviderMD - 08/27/2020 2:00 AM LOAN EXPEDITOR Sharebroker Details Entered On: 08/27/2020 1:36 EST Performed [...] on filedocumented in this encounter Care Teams Cheese Maker Relationship Specialty Start Date End Date Jay Howell MD [address] [place] [phone] PCP - General Emergency Medicine 11/12/23 documented as of this encounter
--- OUTSIDE RECORDS SUMMARY | 2025-10-12 21:56 | XMS_ITS | Encounter Summary ---
Author Organization [employer] ([place], [place], [place], [place], [place]) Address [address] [place] [address] Care Team Providers Care Fire Prevention Captain Name Role Phone Jay Howell MD Primary Care Provider [phone] Encounter Details Date Type Department Care Team (Late st Contact Info) Description 08/23/2020 Transcribed Document [facility] [place] [address] [place] [address] ProviderJessie MD [address] [place] [phone] Social History Tobacco Use Types Packs/Day Years Used Date Smoking Tobacco: Never Assessed Comments Unknown Sex and Gender Information Value Date Recorded Sex Assigned at Not on file Legal Sex Female 7:30 PM CDT Gender Identity Not on file Sexual Orientation Not on file documented as of this encounter Miscellaneous Notes * Cerner Conversion Note - Jessie ProviderMD - 08/23/2020 1:04 AM RN INTERNATIONAL Electronically signed by [facility] Conversion Chemical Laboratory Chief Cerner at 02/04/2023 1:59 PM CDT documented in this encounter Plan of Treatment Not on file documented as of this encounter Visit Diagnoses Not on filedocumented in this encounter Care Teams Fire Prevention Captain Relationship Specialty Start Date End Date Jay Howell MD [address] [place] [phone] PCP - General Emergency Medicine 11/12/23 documented as of this encounter
--- OUTSIDE RECORDS SUMMARY | 2025-10-12 21:56 | XMS_ITS | Encounter Summary ---
Author Organization [employer] ([place], [place], [place], [place], [place]) Address [address] [place] [address] Care Team Providers Care Salesperson Men'S Hats Name Role Phone Jay Howell MD Primary Care Provider [phone] Encounter Details Date Type Department Care Team (Late st Contact Info) Description 06/13/2020 Transcribed Document [facility] [place] Family Medicine [address] [place] [address] ProviderJessie MD [address] [place], [place] [phone] Social History Tobacco Use Types Packs/Day Years Used Date Smoking Tobacco: Never Assessed Comments Unknown Sex and Gender Information Value Date Recorded Sex Assigned at Not on file Legal Sex Female 7:30 PM CDT Gender Identity Not on file Sexual Orientation Not on file documented as of this encounter Miscellaneous Notes * Cerner Conversion Note - Jessie ProviderMD - 06/13/2020 4:20 PM CDT Event [...] on RA. FSBS noted. Fall team and STEVEDORING SUPERVISOR team notified but they were in another STEVEDORING SUPERVISOR call. PT feels clammy and light [...] - 06/13/2020 16:24 EDT Electronically signed by [facility] Conversion Apricot Packer Cerner at 02/04/2023 2:04 PM CDT documented in this encounter Plan of Treatment Not on file documented as of this encounter Visit Diagnoses Not on filedocumented in this encounter Care Teams Salesperson Men'S Hats Relationship Specialty Start Date End Date Jay Howell MD [address] [place] [phone] PCP - General Emergency Medicine 11/12/23 documented as of this encounter
--- OUTSIDE RECORDS SUMMARY | 2025-10-12 21:56 | XMS_ITS | Encounter Summary ---
Author Organization [employer] ([place], [place], [place], [place], [place]) Address [address] [place] [address] Care Team Providers Care Machine Pan Greaser Name Role Phone Jay Howell MD Primary Care Provider [phone] Encounter Details Date Type Department Care Team (Late st Contact Info) Description 06/19/2020 Transcribed Document [facility] [place] [address] [place] [address] ProviderJessie MD [address] [place] [address] Social History Tobacco Use Types Packs/Day Years [...] provider. This is important. Medicines ??? Take okbs-bam-ftwsnbp and prescription medicines only as told by [...] 10/03/2006 Document Revised: 06/13/2019 Document Reviewed: 06/13/2019 [employer] Patient Education ? 2020 [employer]. documented in this encounter Plan of Treatment Not on file documented as of this encounter Visit Diagnoses Not on filedocumented in this encounter Care Teams Machine Pan Greaser Relationship Specialty Start Date End Date Jay Howell MD [address] [place] [phone] PCP - General Emergency Medicine 11/12/23 documented as of this encounter
--- NOTE | 2025-10-12 21:57 | [facility].EDGENADL ---
Discharge Plan Disposition Patient Disposition: Admitted Prescriptions Prescriptions: No Action calcium carbonate [Calcium Antacid] 400 mg calcium (1,000 mg) tablet,chewable 400 mg PO DAILY acetaminophen 500 mg tablet 500 mg PO Q6H atorvastatin [Lipitor] 40 mg tablet 40 mg PO QHS Qty: 30 0RF aspirin 81 mg tablet 81 mg PO DAILY Qty: 30 0RF cyanocobalamin (vitamin B-12) 1,000 mcg tablet 1,000 mcg PO DAILY Qty: 30 0RF gabapentin 400 mg capsule 400 mg PO TID Qty: 90 0RF latanoprost [Xalatan] 0.005 % drops 1 drp Eye-Both HS Qty: 2.5 0RF losartan 25 mg tablet 25 mg PO DAILY Qty: 30 0RF metoprolol tartrate 25 mg tablet 25 mg PO BID Qty: 60 0RF nortriptyline [Pamelor] 10 mg capsule 10 mg PO QHS Qty: 30 0RF pantoprazole [Protonix] 40 mg tablet,delayed release (DR/EC) 40 mg PO BID Qty: 60 0RF polyethylene glycol 3350 [Miralax] 17 gram/dose powder 17 g PO DAILY Qty: 119 0RF ranolazine 1,000 mg tablet extended release 12 hr 1,000 mg PO DAILY Qty: 30 0RF furosemide [Lasix] 40 mg tablet 40 mg PO DAILY Qty: 30 0RF oxycodone 5 mg tablet 5 mg PO TID Qty: 90 0RF dorzolamide 2 % drops 1 drp ophthalmic (eye) .ahs Qty: 10 2RF Referrals Follow up/Referrals: Isidro Calderon MD [Primary Care Provider, Family Practice] - See instructions Clinical Impressions Clinical Impression: AMS (altered mental status), Seizure-like activity Instructions Patient Instructions: DI for Altered Mental Status Print Language Print Language: Belarusian Discharge ED Provider: Chapin Smiley General Adult HPI <Chapin Smiley MD - Last Filed: 10/12/25 23:49> General Chief complaint: Altered Mental Status Stated complaint: incoherent,jerky, out of it, Time Seen by Provider: 10/12/25 21:48 History of Present Illness HPI narrative: Miladis Montoya is an 84-year-old female with a past medical history of CABG, peripheral artery disease, A-fib RVR, hypertension, hyperlipidemia, diabetes mellitus, sleep apnea, who presents to the emergency department with family POV for concern for decreased responsiveness. Patient's son is at the bedside and provides details. He states that her last known normal was around 230 today. They state that patient after dinner and approximately 815 started become less responsive. Said that she is normally alert and answering questions appropriately. They state that on the way over to the ER, she stopped responding. They state that she had a full body shaking that happened when she has taken gabapentin in the past and states that she last took it this morning. She they note that she is prescribed oxycodone but do not know if she has been taking that. They state that throughout the day today, she has been increasingly getting more lethargic and less responsive. Son is at the bedside states that they have had multiple conversations and that she wants to be DNR/DNI. Related Data Home Medications ?Medication ?Instructions ?Recorded ?Confirmed acetaminophen 500 mg tablet 500 mg PO Q6H 08/18/25 08/18/25 calcium carbonate (Calcium Antacid) 400 mg PO DAILY 08/18/25 08/18/25 Previous Rx's ?Medication ?Instructions ?Recorded aspirin 81 mg tablet 81 mg PO DAILY #30 tabs 08/30/25 atorvastatin 40 mg tablet (Lipitor) 40 mg PO QHS #30 tabs 08/30/25 cyanocobalamin (vitamin B-12) 1,000 mcg PO DAILY #30 tabs 08/30/25 1,000 mcg tablet dorzolamide 2 % eye drops 1 drp ophthalmic (eye) .ahs #10 mL 08/30/25 furosemide 40 mg tablet (Lasix) 40 mg PO DAILY #30 tabs 08/30/25 gabapentin 400 mg capsule 400 mg PO TID #90 caps 08/30/25 latanoprost 0.005 % eye drops 1 drp Eye-Both HS #2.5 mL 08/30/25 (Xalatan) losartan 25 mg tablet 25 mg PO DAILY #30 tabs 08/30/25 metoprolol tartrate 25 mg tablet 25 mg PO BID #60 tabs 08/30/25 nortriptyline 10 mg capsule 10 mg PO QHS #30 caps 08/30/25 (Pamelor) oxycodone 5 mg tablet 5 mg PO TID pain #90 tabs 08/30/25 pantoprazole 40 mg tablet,delayed 40 mg PO BID #60 tabs 08/30/25 release (Protonix) polyethylene glycol 3350 17 17 g PO DAILY #119 grams 08/30/25 gram/dose oral powder (Miralax) ranolazine 1,000 mg 1,000 mg PO DAILY #30 tabs 08/30/25 tablet,extended release,12 hr Allergies Allergy/AdvReac Type Severity Reaction Status Date / Time nitrofurantoin (From Allergy Intermediate Rash Verified 08/18/25 20:18 Macrodantin) morphine Allergy Unknown Unknown Verified 08/18/25 20:18 allergy reaction [facility] <Chapin Smiley MD - Last Filed: 10/12/25 23:49> [facility] Disclaimer: The information contained in this section may have been updated after the patient was seen, as this information can be updated by other users. Medical History Fall Acute exacerbation of CHF (congestive heart failure) Acute hypokalemia Minor head injury Frequent falls Hypomagnesemia Stasis ulcer of right lower extremity CHF exacerbation Closed right fibular fracture Closed tibial fracture Macrocytic anemia Peripheral vascular disease Diabetes mellitus GERD (gastroesophageal reflux disease) Chronic kidney disease (CKD) stage G2/A3, mildly decreased glomerular filtration rate (GFR) between 60-89 mL/min/1.73 square meter and albuminuria creatinine ratio greater than 300 mg/g Urinary retention Hyperlipidemia Hypertension Acute UTI Seizure Acquired absence of left leg above knee Atrial fibrillation with RVR CHF (congestive heart failure) PAD (peripheral artery disease) Anemia CHI (closed head injury) Sleep apnea A-fib Emphysema lung Surgical History Hx of CABG Social History Smoking Status: Unknown if ever smoked smoking status stop date: 1991 alcohol intake: never substance use type: denies use current occupational status: retired Travel in the last 8 weeks?: None housing: [facility] marital status: Have you lived/traveled outside [place] in past 30 days?: No Contact w/someone who lives/traveled outside US past 30 days?: No Exposure to someone with infectious disease in past 14 days?: No Do you have a fever (greater than 100.4 F or 38 C)?: No Have you tested positive for COVID-19?: No Exposed to someone with COVID-19 in past 14 days?: No Do you have a sore throat?: No Do you have a cough?: No Do you have any weakness?: No Do you have any diarrhea?: No Are you experiencing any unusual bleeding?: No Do you have any muscle aches/pain?: No Do you have any abdominal pain?: No Are you experiencing loss of taste or smell?: No Other Medical History Have you received the Flu Vaccine for this season: No Have you received the Pneumonia Vaccine: Yes <Chapin Smiley MD - Last Filed: 10/12/25 23:49> ROS Obtained: Yes Systems reviewed as appropriate & no additional complaints except as documented Physical Exam <Chapin Smiley MD - Last Filed: 10/12/25 23:49> General General appearance: obtunded Comment: Unresponsive Head Head exam: atraumatic Eye Eye exam: Present normal appearance and PERRL (Pupils 3 mm and sluggish bilaterally) ENT ENT exam: Present normal external ear exam Chest Chest inspection: Present symmetric chest wall rise Respiratory Respiratory exam: Present normal lung sounds bilaterally and respiratory distress (Intermittent spontaneous breaths); Absent wheezes or stridor Cardiovascular Cardiovascular exam: Present regular rate and normal rhythm Abdominal Exam Abdominal exam: Present soft; Absent distention, tenderness, guarding or rigidity Extremities Exam Extremities exam: Present other (S/p left AKA) Back Exam Back exam: Present normal inspection Neurological Exam Neurological exam: Present other (GCS of 3, obtunded) Skin Skin exam: Present warm, dry and other (Pale) Medical Decision Making <Chapin Smiley MD - Last Filed: 10/12/25 23:49> Medical Records Screening: Per USPSTF and CDC recommendations, given the prevalence of disease in our region, it is our hospital?s policy to screen for HIV and viral Hepatitis for all patients aged 18 and over and those with ongoing risk factors. [place] Inquiry Pt receiving controlled substance: No Vital Signs: 10/12/25 22:14 10/12/25 22:24 Temperature 98.7 F 98.8 F Temperature Source Oral Oral Pulse Rate 74 Pulse Rate [Left] 73 Respiratory Rate 12 12 Blood Pressure 107/68 L Blood Pressure [Right Arm] 85/53 L Blood Pressure Mean [Right Arm] 63 02 Sat by Pulse Oximetry 95 98 Oxygen Delivery Method Room Air Room Air Lab Data Lab Results 10/12/25 21:40: Salicylates < 1.0 L, Acetaminophen < 10 L 10/12/25 21:58: Urine Color Yellow, Urine Appearance Clear, Urine pH 5.5, Ur Specific [place] 1.010, Urine Protein Negative, Urine Glucose (UA) Negative, Urine Ketones Negative, Urine Blood Negative, Urine Nitrate Negative, Urine Bilirubin Negative, Urine Urobilinogen 0.2, Ur Leukocyte Esterase Negative, Urine RBC Occasional, Urine WBC Occasional, Ur Squamous Epith Cells Occasional, Urine Bacteria None, Hyaline Casts 3-5 10/12/25 22:00: Urine Opiates Screen Negative, Urine Methadone Screen Negative, Ur Barbituates Screen Negative, Ur Phencyclidine Scrn Negative, Ur Amphetamines Screen Negative, U Benzodiazepines Scrn Negative, Urine Cocaine Screen Negative, U Marijuana (THC) Screen Positive H 10/12/25 22:53: VBG pH 7.38, VBG pCO2 40.0, VBG pO2 109.5 H, VBG HCO3 22.9 L, VBG Total CO2 24.1, VBG O2 Saturation 97.8 H, VBG Base Excess -2.3, VBG Lactic Acid 2.1 H 10/12/25 23:00: Blood Type A Positive, Antibody Screen Negative 10/12/25 : WBC 3.8 L, RBC 2.35 L, Hgb 9.2 L, Hct 27.7 L, MCV 117.9 H, MCH 39.1 H, MCHC 33.2, RDW 14.4, Plt Count 104 L, MPV 12.9 H, Neut % (Auto) 45.6, Lymph % (Auto) 45.6, [place] % (Auto) 8.0, Eos % (Auto) 0.0 L, Baso % (Auto) 0.5, Neut # (Auto) 1.7 L, Lymph # (Auto) 1.7, [place] # (Auto) 0.3, Eos # (Auto) 0.0, Baso # (Auto) 0.0, PT 12.4, INR 1.13 H, APTT 25.6, Sodium 135 L, Potassium 4.8, Chloride 105, Carbon Dioxide 23, Anion Gap 11.8, BUN 28 H, Creatinine 1.20 H, Estimated GFR 43 L, Est GFR ( Amer) 52 L, Glucose 122 H, Calcium 8.5, Phosphorus 3.7, Magnesium 1.7, Total Bilirubin 1.0, AST 46 H, ALT 23, Alkaline Phosphatase 125, Troponin I 0.03, C-Reactive Protein 1.4, NT-Pro-B Natriuret Pep 5350 H, Total Protein 7.7, Albumin 3.8, Globulin 3.9 H, Albumin/Globulin Ratio 1.0 L, Lipase 56 10/12/25 Unknown 10/12/25 Unknown Orders (Tests/Meds): ED MEDICATIONS Generic Name Dose Route Start Last Admin Trade Name Freq PRN Reason Stop Dose Admin Sodium Chloride 10 ml 10/12/25 22:10 10/12/25 22:11 Sodium Chloride 0.9% 10ml Syr (Rad Only) IV 11/11/25 22:09 10 ml NEEDED PRN Administration Maintain IV Site Discontinued Medications Generic Name Dose Route Start Last Admin Trade Name Freq PRN Reason Stop Dose Admin Lactated Ringer's 1,000 mls @ 999 mls/hr 10/12/25 21:58 10/13/25 00:34 Lactated Ringer's 1000 Ml Bag IV 10/12/25 22:58 Infused .Q1H1M ONE Infusion Levetiracetam 2,000 mg/ Sodium 120 mls @ 240 mls/hr 10/12/25 23:01 10/12/25 23:40 Chloride IV 10/12/25 23:02 Infused ONCE ONE Infusion Iopamidol 150 ml 10/12/25 22:10 10/12/25 22:11 Iopamidol-370 (76%);100ml Bottle IV 10/12/25 22:11 150 ml ONCE ONE Administration Sodium Chloride 100 ml 10/12/25 22:10 10/12/25 22:11 0.9 % Sodium Chloride 50 Ml Vial IV 10/12/25 22:11 100 ml ONCE ONE Administration ORDERS Category Date Time Status Type and Screen Stat BBK 10/12/25 23:[address] abdomen pelvis w con Stat Cat Scan 10/12/25 21:[address] angio chest PE protocol Stat Cat Scan 10/12/25 21:[address] angio head Stat Cat Scan 10/12/25 21:[address] angio neck Stat Cat Scan 10/12/25 21:[address] head/brain wo con Stat Cat Scan 10/12/25 21:49 Completed Acetaminophen Stat Lab 10/12/25 21:40 Completed BNP [NT Pro Brain Natriuretic Pep.] Stat Lab 10/12/25 Completed CBC w/Auto Diff [Complete Blood Count Auto Diff] Stat Lab 10/12/25 Completed CMP [Comprehensive Metabolic Panel] Stat Lab 10/12/25 Completed CRP [C-Reactive Protein] Stat Lab 10/12/25 Completed Lipase Stat Lab 10/12/25 Completed Magnesium Stat Lab 10/12/25 Completed PT INR [Prothrombin Time INR] Stat Lab 10/12/25 Completed PTT [Activated Partial Thrombo Time] Stat Lab 10/12/25 Completed Phosphorous Stat Lab 10/12/25 Completed Salicylate Stat Lab 10/12/25 21:40 Completed Troponin I Q3H Lab 10/13/25 01:00 Ordered Troponin I Q3H Lab 10/13/25 04:00 Ordered Troponin I Stat Lab 10/12/25 Completed UA [Urinalysis and Microscopic] Stat Lab 10/12/25 21:58 Completed UDS [Drug Screen,Urine] Stat Lab 10/12/25 22:00 Completed VBG [Venous Blood Gas] Stat RT 10/12/25 22:53 Completed Medical Decision Narrative: Miladis Montoya is an 84-year-old female with a past medical history of CABG, peripheral artery disease, A-fib RVR, hypertension, hyperlipidemia, diabetes mellitus, sleep apnea, who presents to the emergency department with family POV for concern for decreased responsiveness. Patient's son is at the bedside and provides details. He states that her last known normal was around 230 today. They state that patient after dinner and approximately 815 started become less responsive. Said that she is normally alert and answering questions appropriately. They state that on the way over to the ER, she stopped responding. They state that she had a full body shaking that happened when she has taken gabapentin in the past and states that she last took it this morning. She they note that she is prescribed oxycodone but do not know if she has been taking that. They state that throughout the day today, she has been increasingly getting more lethargic and less responsive. Son is at the bedside states that they have had multiple conversations and that she wants to be DNR/DNI. On arrival, patient is hypotensive, heart rate within normal limits, currently getting bag valve mask ventilation to assist with respirations. Oxygen saturation 98%. Afebrile. Patient came through the lobby in a wheelchair and was completely unresponsive. She was lifted from the wheelchair to the stretcher. She has a GCS of 3 at this time. Breath sounds present bilaterally, however breath sounds are intermittent and often agonal. Breathing was assisted with [id number] ventilation and nasopharyngeal airway. She appears pale. Pupils are 3 and reactive bilaterally but sluggish. She is status post left AKA. Due to concern for impending respiratory failure, plan was to intubate the patient, however, patient's son arrived, who states that he is her next of kin and states that they have had multiple conversations and she expressed clearly that she would not want to be intubated and is a DNR. He states that patient's spouse of approximately a year ago and that there is another son but he is not involved in their care. Given this, we will avoid intubation at this time. Patient does have a pulse currently. Patient was made a stroke alert at this time but differential includes stroke, seizure, metabolic encephalopathy, urinary tract infection, pneumonia, electrolyte derangement, hypercapnic respiratory failure, among others. The most morbid conditions were considered and workup was based on these. Patient was administered 2 mg of IV Narcan with no significant response. An additional 2 mg of Narcan was given. At this time, she is making incomprehensible sounds but no significant change in clinical status. CT imaging was interpreted by me personally. I do not appreciate any large vessel occlusion or intracranial hemorrhage. Patient has moderate calcified plaque with up to 57% stenosis of the proximal right internal carotid artery. No other significant stenosis or occlusion. Moderate calcified plaque with mild stenosis in the cavernous segment of the bilateral ICAs with good distal flow. No significant stenosis occlusion or aneurysm. No acute pulmonary emboli. Emphysematous present on CT chest. Atelectasis present in bilateral lung bases. Trace bilateral pleural effusions. Liver morphology concerning for cirrhosis. Poorly enhancing midpole right renal cortex and per radiology, differential includes renal infarct, vasculitis or pyelonephritis but no evidence of pyelonephritis/UTI on patient's urine studies. Possible early colitis as well. Patient's laboratory studies show leukopenia with white cell count of 3.8, hemoglobin 9.2, however this is her baseline. Platelets chronically low near baseline at 104. Coagulation studies with mildly elevated INR 1.13, however patient is not on any anticoagulation per her medication list. VBG shows normal pH of 7.38, pCO2 normal at 40, mild elevated lactate of 2.1. Bicarb mildly low at 22.9. Mildly low sodium of 135 and potassium of 4.8. Mildly elevated creatinine 1.2 and BUN of 28, however this appears to be close to her baseline. Mildly elevated AST of 46 but liver enzymes otherwise unremarkable nonactionable. Initial troponin 0.03. NT proBNP 5350, consistent with patient's known history of heart failure. Lipase normal at 56. Urinalysis without blood or evidence of infection. Salicylates negative, acetaminophen negative. UDS positive for THC but otherwise negative. Son states that she does take CBD Gummies and has been doing this for some time. On reassessment, patient is now alert and interacting appropriately. I did discuss with son and he states that she does have a remote history of seizure, stated that she had a seizure approximately 1 year ago but is not on any medication for it. He describes on the way here that she had full body convulsions and was unresponsive I do feel that patient may have had a seizure that resulted in a postictal state but is now improving. I discussed patient's case with stroke navigation team at [facility] who put me in contact with Dr. Campos with the neurology team who agreed that patient could have had a seizure and would like the patient transferred for further management and workup. I then discussed patient's case with Dr. Steward who accepted the patient for admission at approximately 2338 to a telemetry bed. Patient is on the wait list at this time. Patient's care transferred to oncoming physician, Dr. Mares, pending transfer versus admission for observation until bed becomes available at [facility]. <Sandeep Mares MD - Last Filed: 10/13/25 00:40> Vital Signs: 10/12/25 22:14 10/12/25 22:24 Temperature 98.7 F 98.8 F Temperature Source Oral Oral Pulse Rate 74 Pulse Rate [Left] 73 Respiratory Rate 12 12 Blood Pressure 107/68 L Blood Pressure [Right Arm] 85/53 L Blood Pressure Mean [Right Arm] 63 02 Sat by Pulse Oximetry 95 98 Oxygen Delivery Method Room Air Room Air Lab Data Lab Results 12/27/25 21:40: Salicylates < 1.0 L, Acetaminophen < 10 L 10/12/25 21:58: Urine Color Yellow, Urine Appearance Clear, Urine pH 5.5, Ur Specific [place] 1.010, Urine Protein Negative, Urine Glucose (UA) Negative, Urine Ketones Negative, Urine Blood Negative, Urine Nitrate Negative, Urine Bilirubin Negative, Urine Urobilinogen 0.2, Ur Leukocyte Esterase Negative, Urine RBC Occasional, Urine WBC Occasional, Ur Squamous Epith Cells Occasional, Urine Bacteria None, Hyaline Casts 3-5 10/12/25 22:00: Urine Opiates Screen Negative, Urine Methadone Screen Negative, Ur Barbituates Screen Negative, Ur Phencyclidine Scrn Negative, Ur Amphetamines Screen Negative, U Benzodiazepines Scrn Negative, Urine Cocaine Screen Negative, U Marijuana (THC) Screen Positive H 10/12/25 22:53: VBG pH 7.38, VBG pCO2 40.0, VBG pO2 109.5 H, VBG HCO3 22.9 L, VBG Total CO2 24.1, VBG O2 Saturation 97.8 H, VBG Base Excess -2.3, VBG Lactic Acid 2.1 H 10/12/25 23:00: Blood Type A Positive, Antibody Screen Negative 10/12/25 : WBC 3.8 L, RBC 2.35 L, Hgb 9.2 L, Hct 27.7 L, MCV 117.9 H, MCH 39.1 H, MCHC 33.2, RDW 14.4, Plt Count 104 L, MPV 12.9 H, Neut % (Auto) 45.6, Lymph % (Auto) 45.6, [place] % (Auto) 8.0, Eos % (Auto) 0.0 L, Baso % (Auto) 0.5, Neut # (Auto) 1.7 L, Lymph # (Auto) 1.7, [place] # (Auto) 0.3, Eos # (Auto) 0.0, Baso # (Auto) 0.0, PT 12.4, INR 1.13 H, APTT 25.6, Sodium 135 L, Potassium 4.8, Chloride 105, Carbon Dioxide 23, Anion Gap 11.8, BUN 28 H, Creatinine 1.20 H, Estimated GFR 43 L, Est GFR ( Amer) 52 L, Glucose 122 H, Calcium 8.5, Phosphorus 3.7, Magnesium 1.7, Total Bilirubin 1.0, AST 46 H, ALT 23, Alkaline Phosphatase 125, Troponin I 0.03, C-Reactive Protein 1.4, NT-Pro-B Natriuret Pep 5350 H, Total Protein 7.7, Albumin 3.8, Globulin 3.9 H, Albumin/Globulin Ratio 1.0 L, Lipase 56 Orders (Tests/Meds): ED MEDICATIONS Generic Name Dose Route Start Last Admin Trade Name Freq PRN Reason Stop Dose Admin Sodium Chloride 10 ml 10/12/25 22:10 10/12/25 22:11 Sodium Chloride 0.9% 10ml Syr (Rad Only) IV 11/11/25 22:09 10 ml NEEDED PRN Administration Maintain IV Site Discontinued Medications Generic Name Dose Route Start Last Admin Trade Name Freanali PRN Reason Stop Dose Admin Lactated Ringer's 1,000 mls @ 999 mls/hr 10/12/25 21:58 10/13/25 00:34 Lactated Ringer's 1000 Ml Bag IV 10/12/25 22:58 Infused .Q1H1M ONE Infusion Levetiracetam 2,000 mg/ Sodium 120 mls @ 240 mls/hr 10/12/25 23:01 10/12/25 23:40 Chloride IV 10/12/25 23:02 Infused ONCE ONE Infusion Iopamidol 150 ml 10/12/25 22:10 10/12/25 22:11 Iopamidol-370 (76%);100ml Bottle IV 10/12/25 22:11 150 ml ONCE ONE Administration Sodium Chloride 100 ml 10/12/25 22:10 10/12/25 22:11 0.9 % Sodium Chloride 50 Ml Vial IV 10/12/25 22:11 100 ml ONCE ONE Administration ORDERS Category Date Time Status Type and Screen Stat BBK 10/12/25 23:[address] abdomen pelvis w con Stat Cat Scan 10/12/25 21:[address] angio chest PE protocol Stat Cat Scan 10/12/25 21:[address] angio head Stat Cat Scan 10/12/25 21:[address] angio neck Stat Cat Scan 10/12/25 21:[address] head/brain wo con Stat Cat Scan 10/12/25 21:49 Completed Acetaminophen Stat Lab 10/12/25 21:40 Completed BNP [NT Pro Brain Natriuretic Pep.] Stat Lab 10/12/25 Completed CBC w/Auto Diff [Complete Blood Count Auto Diff] Stat Lab 10/12/25 Completed CMP [Comprehensive Metabolic Panel] Stat Lab 10/12/25 Completed CRP [C-Reactive Protein] Stat Lab 10/12/25 Completed Lipase Stat Lab 10/12/25 Completed Magnesium Stat Lab 10/12/25 Completed PT INR [Prothrombin Time INR] Stat Lab 10/12/25 Completed PTT [Activated Partial Thrombo Time] Stat Lab 10/12/25 Completed Phosphorous Stat Lab 10/12/25 Completed Salicylate Stat Lab 10/12/25 21:40 Completed Troponin I Q3H Lab 10/13/25 01:00 Ordered Troponin I Q3H Lab 10/13/25 04:00 Ordered Troponin I Stat Lab 10/12/25 Completed UA [Urinalysis and Microscopic] Stat Lab 10/12/25 21:58 Completed UDS [Drug Screen,Urine] Stat Lab 10/12/25 22:00 Completed VBG [Venous Blood Gas] Stat RT 10/12/25 22:53 Completed Medical Decision Narrative: Miladis Montoya is an 84-year-old female with a past medical history of CABG, peripheral artery disease, A-fib RVR, hypertension, hyperlipidemia, diabetes mellitus, sleep apnea, who presents to the emergency department with family POV for concern for decreased responsiveness. Patient's son is at the bedside and provides details. He states that her last known normal was around 230 today. They state that patient after dinner and approximately 815 started become less responsive. Said that she is normally alert and answering questions appropriately. They state that on the way over to the ER, she stopped responding. They state that she had a full body shaking that happened when she has taken gabapentin in the past and states that she last took it this morning. She they note that she is prescribed oxycodone but do not know if she has been taking that. They state that throughout the day today, she has been increasingly getting more lethargic and less responsive. Son is at the bedside states that they have had multiple conversations and that she wants to be DNR/DNI. On arrival, patient is hypotensive, heart rate within normal limits, currently getting bag valve mask ventilation to assist with respirations. Oxygen saturation 98%. Afebrile. Patient came through the lobby in a wheelchair and was completely unresponsive. She was lifted from the wheelchair to the stretcher. She has a GCS of 3 at this time. Breath sounds present bilaterally, however breath sounds are intermittent and often agonal. Breathing was assisted with [id number] ventilation and nasopharyngeal airway. She appears pale. Pupils are 3 and reactive bilaterally but sluggish. She is status post left AKA. Due to concern for impending respiratory failure, plan was to intubate the patient, however, patient's son arrived, who states that he is her next of kin and states that they have had multiple conversations and she expressed clearly that she would not want to be intubated and is a DNR. He states that patient's spouse of approximately a year ago and that there is another son but he is not involved in their care. Given this, we will avoid intubation at this time. Patient does have a pulse currently. Patient was made a stroke alert at this time but differential includes stroke, seizure, metabolic encephalopathy, urinary tract infection, pneumonia, electrolyte derangement, hypercapnic respiratory failure, among others. The most morbid conditions were considered and workup was based on these. Patient was administered 2 mg of IV Narcan with no significant response. An additional 2 mg of Narcan was given. At this time, she is making incomprehensible sounds but no significant change in clinical status. CT imaging was interpreted by me personally. I do not appreciate any large vessel occlusion or intracranial hemorrhage. Patient has moderate calcified plaque with up to 57% stenosis of the proximal right internal carotid artery. No other significant stenosis or occlusion. Moderate calcified plaque with mild stenosis in the cavernous segment of the bilateral ICAs with good distal flow. No significant stenosis occlusion or aneurysm. No acute pulmonary emboli. Emphysematous present on CT chest. Atelectasis present in bilateral lung bases. Trace bilateral pleural effusions. Liver morphology concerning for cirrhosis. Poorly enhancing midpole right renal cortex and per radiology, differential includes renal infarct, vasculitis or pyelonephritis but no evidence of pyelonephritis/UTI on patient's urine studies. Possible early colitis as well. Patient's laboratory studies show leukopenia with white cell count of 3.8, hemoglobin 9.2, however this is her baseline. Platelets chronically low near baseline at 104. Coagulation studies with mildly elevated INR 1.13, however patient is not on any anticoagulation per her medication list. VBG shows normal pH of 7.38, pCO2 normal at 40, mild elevated lactate of 2.1. Bicarb mildly low at 22.9. Mildly low sodium of 135 and potassium of 4.8. Mildly elevated creatinine 1.2 and BUN of 28, however this appears to be close to her baseline. Mildly elevated AST of 46 but liver enzymes otherwise unremarkable nonactionable. Initial troponin 0.03. NT proBNP 5350, consistent with patient's known history of heart failure. Lipase normal at 56. Urinalysis without blood or evidence of infection. Salicylates negative, acetaminophen negative. UDS positive for THC but otherwise negative. Son states that she does take CBD Gummies and has been doing this for some time. On reassessment, patient is now alert and interacting appropriately. I did discuss with son and he states that she does have a remote history of seizure, stated that she had a seizure approximately 1 year ago but is not on any medication for it. He describes on the way here that she had full body convulsions and was unresponsive I do feel that patient may have had a seizure that resulted in a postictal state but is now improving. I discussed patient's case with stroke navigation team at [facility] who put me in contact with Dr. Campos with the neurology team who agreed that patient could have had a seizure and would like the patient transferred for further management and workup. I then discussed patient's case with Dr. Steward who accepted the patient for admission at approximately 2338 to a telemetry bed. Patient is on the wait list at this time. Patient's care transferred to oncoming physician, Dr. Mares, pending transfer versus admission for observation until bed becomes available at [facility]. Mares: Upon my assumption of care patient is stable, resting comfortably, her mentation has normalized. Alert and interacting appropriately. High suspicion that the patient was postictal and may have had some subclinical seizure activity as well while in the ER. Patient is excepted to [facility] as documented above. We reached out to [facility] and they report that there are multiple people on the wait list ahead of her and that she will not have a bed until after morning discharges. Therefore I believe the patient requires admission to this facility for continued management until bed becomes available. I reached out to the hospitalist, Dr. Sky, and spoke with him by phone. We reviewed this case and he graciously accepted the patient for admission. Patient was admitted in stable condition. Critical Care <Chapin Smiley MD - Last Filed: 10/12/25 23:49> Critical Care Time Critical Care Time: Yes Attestation: On 10/12/25, the high probability of a clinically significant, sudden or life threatening deterioration of the following system(s) required my full and direct attention, intervention and personal management. The time I documented below is in addition to time spent performing reported procedures but includes the following listed in this critical care notation. Total Time Total Critical Care Time: 45
--- OUTSIDE RECORDS SUMMARY | 2025-10-12 21:57 | XMS_ITS | Encounter Summary ---
Author Organization [employer] ([place], [place], [place], [place], [place]) Address [address] [place] [address] Care Team Providers Care Plowing Gardens Name Role Phone Jay Howell MD Primary Care Provider [phone] Encounter Details Date Type Department Care Team (Late st Contact Info) Description 08/28/2020 Transcribed Document [facility] [place] [address] [place] [address] ProviderJessie MD [address] [place] [address] Social History Tobacco Use Types Packs/Day Years Used Date Smoking Tobacco: Never Assessed Comments Unknown Sex and Gender Information Value Date Recorded Sex Assigned at Not on file Legal Sex Female 7:30 PM CDT Gender Identity Not on file Sexual Orientation Not on file documented as of this encounter Miscellaneous Notes * Cerner Conversion Note - Jessie Yuen MD - 08/28/2020 9:30 AM IMPREGNATOR AND DRIER Space Control Supervisor Inpatient Document Entered On: 08/28/2020 11:43 EST Performed On: 08/28/2020 11:40 EST by KARRIE FERNANDES, Rn-Educator Diabetes Space Control Supervisor Inpatient Document Reason for Space Control Supervisor Visit : Physician order Endocrine/Metabolic History : [...] Patient denies needs to for education. KARRIE FERNANDES Rn-Educator Diabetes - 08/28/2020 11:40 EST Teaching/Learning [...] understanding (Comment: A1c at 6.4% [KARRIE FERNANDES Rn-Educator Diabetes - 08/28/2020 11:40 EST] ) Oral Agents : Verbalizes understanding KARRIE FERNANDES Rn-Eductheresa Diabetes - 08/28/2020 11:40 EST Diabetes Teaching Follow-up Plan : Patient/Caregiver declines education KARRIE FERNANDES Rn-Eductheresa Diabetes - 08/28/2020 11:40 EST Electronically signed by [facility] Conversion Exec. Creative Director Cerner at 02/04/2023 2:21 PM CDT documented in this encounter Plan of Treatment Not on file documented as of this encounter Visit Diagnoses Not on filedocumented in this encounter Care Teams Plowing Gardens Relationship Specialty Start Date End Date Jay Howell MD [address] [place] [phone] PCP - General Emergency Medicine 11/12/23 documented as of this encounter
--- OUTSIDE RECORDS SUMMARY | 2025-10-12 21:57 | XMS_ITS | Encounter Summary ---
Author Organization [employer] ([place], [place], [place], [place], [place]) Address [address] [place] [address] Care Team Providers Care Lens Molding Equipment Operator Name Role Phone Jay Howell MD Primary Care Provider [phone] Encounter Details Date Type Department Care Team (Late st Contact Info) Description 02/13/2021 Transcribed Document [facility] [place] [address] [place] [address] ProviderJessie MD [address] [place], [place] [phone] Social History Tobacco Use Types Packs/Day Years Used Date Smoking Tobacco: Never Assessed Comments Unknown Sex and Gender Information Value Date Recorded Sex Assigned at Not on file Legal Sex Female 7:30 PM CDT Gender Identity Not on file Sexual Orientation Not on file documented as of this encounter Miscellaneous Notes * Cerner Conversion Note - Jessie ProviderMD - 02/13/2021 11:43 AM CDT [facility] Endo IntraOp Summary Primary Physician: FABY GRIMM MD Finalized Date/Time: 02/13/21 12:03:45 Pt. Name: SKYLER MONTOYA.O.B./Sex: 1940 Female Med Rec #: [id number] Physician: FABY GRIMM MD Financial #: [id number] Pt. Type: O Room/Bed: END/ Admit/Disch: 02/13/21 09:44:00 - Institution: [facility] Endo - Case Attendance Entry 1 Entry 2 Entry 3 Case Attendee FABY GRIMM MD MILLER, MELISSA A RN ELVIN HUNG Role Performed Surgeon/Proceduralist, Grind Operator, First Scrub, First First Time In [...] SHANA M, STEPHANIE, Denisa Anderson Rn -ANS SPUD GRADER-ANS Role Performed Anesthesiologist of SPUD GRADER/Nurse Medical Records Supervisor Grind Operator, First Record Time In 02/13/21 11:35:00 [...] Endo - Case Attendance Audit 02/13/21 12:00:47 Supervisor Mattress And Boxsprings: [id number] Modifier: [id number] <+> Time Out 1 <*> Procedure [...] Biopsy, Colon Biopsy, Colon Polypectomy 02/13/21 12:00:36 Supervisor Mattress And Boxsprings: [id number] Modifier: [id number] 1 <*> Procedure Colonoscopy, Esophagogastroduodenoscopy, Esophageal Biopsy, Gastric Biopsy, Colon Biopsy 2 <*> Procedure Esophageal Biopsy, Gastric Biopsy, Colon Biopsy 3 <*> Procedure Esophageal Biopsy, Gastric Biopsy, Colon Biopsy 4 <*> Procedure Esophageal Biopsy, Gastric Biopsy, Colon Biopsy 5 <*> Procedure Esophageal Biopsy, Gastric Biopsy, Colon Biopsy 6 <*> Procedure Esophageal Biopsy, Gastric Biopsy, Colon Biopsy 02/13/21 11:58:05 Supervisor Mattress And Boxsprings: [id number] Modifier: [id number] 1 <*> Procedure Colonoscopy, Esophagogastroduodenoscopy <+> 2 Procedure <+> 3 Procedure <+> 4 Procedure <+> 5 Procedure <+> 6 Procedure 02/13/21 11:48:04 Supervisor Mattress And Boxsprings: [email or web address] Modifier: [id number] 1 <+> Time In 1 <*> Procedure Colonoscopy, Esophagogastroduodenoscopy <+> 2 Time In <+> 2 Time Out <+> 3 Time In <+> 4 Time In <+> 5 Time In <+> 6 Case Attendee <+> 6 Role Performed <+> 6 Time In 02/13/21 11:38:46 Supervisor Mattress And Boxsprings: GIULIA Modifier: [email or web address] <+> 2 Case Attendee [...] Endo - Case times Audit 02/13/21 12:00:45 Supervisor Mattress And Boxsprings: [id number] Modifier: [id number] <+> 1 Out Room Time <+> 1 Stop Time <+> 1 Stop Time 02/13/21 11:45:26 Supervisor Mattress And Boxsprings: [email or web address] Modifier: [id number] <+> 1 Start Time [facility] Endo - Cautery Entry 1 ESU Identification Cautery Type Monopolar ESU ID Number [id number] ID Type Hospital Number Cautery Settings Cut [...] HOSPITAL Endo - Cautery Audit 02/13/21 12:03:44 Supervisor Mattress And Boxsprings: [id number] Modifier: [id number] <+> 1 ID Number [facility] [...] LO HOFF RN, Accompanied by TRENTON GONZALEZ SHAPER MACHINE HAND, SPUD GRADER-ANS Last Modified By: LO HOFF RN 02/13/21 [...] [facility] Endo - General Case Insulation Sprayer 1 Case Information OR Endo 01 [facility] [...] - General Case Data Audit 02/13/21 12:02:28 Supervisor Mattress And Boxsprings: [email or web address] Modifier: [id number] <*> Postop Same As Preop Yes [...] Endo - Surgical Procedures Audit 02/13/21 12:01:06 Supervisor Mattress And Boxsprings: [id number] Modifier: [id number] <+> 1 Stop <+> 3 Stop <+> 4 Stop <+> 5 Stop <+> 6 Stop 02/13/21 12:00:33 Supervisor Mattress And Boxsprings: [id number] Modifier: [id number] <+> 6 Procedure <+> 6 Primary Procedure <+> 6 Primary Surgeon <+> 6 Specialty <+> 6 Start <+> 6 Wound Class <+> 6 Anesthesia Type <+> 6 Additional Procedure Description <+> 6 Physician States Cecum Reached 02/13/21 11:58:01 Supervisor Mattress And Boxsprings: [email or web address] Modifier: [id number] 1 <*> Procedure Colonoscopy 1 <+> Start [...] RN 02/13/21 12:03 Electronically signed by [facility] Conversion Cruller Maker Cerner at 02/04/2023 2:05 PM CDT documented in this encounter Plan of Treatment Not on file documented as of this encounter Visit Diagnoses Not on filedocumented in this encounter Care Teams Lens Molding Equipment Operator Relationship Specialty Start Date End Date Jay Howell MD [address] [place] [phone] PCP - General Emergency Medicine 11/12/23 documented as of this encounter
--- OUTSIDE RECORDS SUMMARY | 2025-10-12 21:57 | XMS_ITS | Encounter Summary ---
Author Organization [employer] ([place], [place], [place], [place], [place]) Address [address] [place] [address] Care Team Providers Care Comb Fixer Name Role Phone Jay Howell MD Primary Care Provider [phone] Encounter Details Date Type Department Care Team (Late st Contact Info) Description 03/03/2021 Transcribed Document [facility] [place] Family Medicine [address] [place] [address] ProviderJessie MD [address] [place], [place] [address] Social History Tobacco Use Types Packs/Day Years [...] on filedocumented in this encounter Care Teams Comb Fixer Relationship Specialty Start Date End Date Jay Howell MD [address] [place] [phone] PCP - General Emergency Medicine 11/12/23 documented as of this encounter
--- OUTSIDE RECORDS SUMMARY | 2025-10-12 21:57 | XMS_ITS | Encounter Summary ---
Author Organization [employer] ([place], [place], [place], [place], [place]) Address [address] [place] [address] Care Team Providers Care Sales Mgr Name Role Phone Jay Howell MD Primary Care Provider [phone] Encounter Details Date Type Department Care Team (Late st Contact Info) Description 08/27/2020 Transcribed Document [facility] [place] Family Medicine [address] [place] [address] ProviderJessie MD [address] [place] [phone] Social History Tobacco Use Types Packs/Day Years Used Date Smoking Tobacco: Never Assessed Comments Unknown Sex and Gender Information Value Date Recorded Sex Assigned at Not on file Legal Sex Female 7:30 PM CDT Gender Identity Not on file Sexual Orientation Not on file documented as of this encounter Miscellaneous Notes * Cerner Conversion Note - Historical ProviderMD - 08/27/2020 3:14 PM TERRAZZO LABORER Evaluation, Physical Therapy Entered On: 08/29/2020 12:09 EST Performed On: 08/29/2020 10:38 EST by ERIC OH, PT General Information, PT Therapy Diagnosis, PT : assessment for need for skilled PTx --- NONE at this time Onset of Problem, PT : 08/27/2020 EST Co-treated by, PT : Other: OTx Student General Information Comment, PT : 79 yo female adm to [facility] 08/25 with L LE Hematoma and [...] : Assistive Devices No Devices Recorded ERIC OH, PT - 08/29/2020 12:09 EST General Status [...] Stairs : No Ramp : No ERIC OH, PT - 08/29/2020 13:14 EST Prior Level [...] : yes Attention Assessment : Present ERIC OH, PT - 08/29/2020 13:14 EST Edu Topics [...] Location : Leg, left Onset : Constant ERIC OH, PT - 08/29/2020 13:14 EST Image 1 - Images currently included in the form version of this document have not been included in the text rendition version of the form. Anticipated Discharge Needs, OT/PT Anticipated Discharge to : Home, with family care Anticipated Home Equipment : None Recommend Continued Therapy at Discharge : No ERIC OH, PT - 08/29/2020 13:14 EST [place] PT Charges PT Eval Low Complexity : 1 ERIC OH, PT - 08/29/2020 13:14 EST Electronically signed by [facility] Conversion Nurse Sane Cerner at 02/04/2023 1:59 PM CDT documented in this encounter Plan of Treatment Not on file documented as of this encounter Visit Diagnoses Not on filedocumented in this encounter Care Teams Sales Mgr Relationship Specialty Start Date End Date Jay Howell MD [address] [place] [phone] PCP - General Emergency Medicine 11/12/23 documented as of this encounter
--- OUTSIDE RECORDS SUMMARY | 2025-10-12 21:57 | XMS_ITS | Encounter Summary ---
Author Organization [employer] ([place], [place], [place], [place], [place]) Address [address] [place] [address] Care Team Providers Care Corporate Executive Name Role Phone Jay Howell MD Primary Care Provider [phone] Encounter Details Date Type Department Care Team (Late st Contact Info) Description 03/03/2021 Transcribed Document [facility] [place] [address] [place] [address] ProviderJessie MD [address] [place], [place] [address] Social History Tobacco Use Types Packs/Day Years [...] : None Primary Language : Citizen Of [place] Any Spiritual/Cultural Needs or Requests : No [...] RN) EENT Assessment EENT Assessment WDL : WDMarek Carranza Rn - 03/03/2021 16:24 EDT Cardiovascular ASMT, [...] EDT Gastrointestinal ED Gastrointestinal Assessment WDL : Marek Mederos Rn - 03/03/2021 16:24 EDT Genitourinary Assessment, ED Genitourinary Assessment WDL : Marek Mederos Rn - 03/03/2021 16:24 EDT Musculoskeletal Musculoskeletal Assessment WDL : LALO with exceptions Musculoskeletal Assessment Comment : L hip Marek Sanford Rn - 03/03/2021 16:24 EDT Integumentary Assessment Integumentary Assessment WDL : Marek Mederos Rn - 03/03/2021 16:24 EDT Neurologic ASMT, ED Neurologic Assessment WDL : WDL Neurological Symptoms : None Level of Consciousness : Alert, Awake Affect/Behavior : Appropriate Speech : Clear Orientation : Oriented x 4 Pupils Equal, Round, Reactive to Light : Yes Marek Sanford Rn - 03/03/2021 16:24 EDT Electronically signed by [facility] Conversion Electrical Logger Cerner at 02/04/2023 2:00 PM CDT documented in this encounter Plan of Treatment Not on file documented as of this encounter Visit Diagnoses Not on filedocumented in this encounter Care Teams Corporate Executive Relationship Specialty Start Date End Date Jay Howell MD [address] [place] [phone] PCP - General Emergency Medicine 11/12/23 documented as of this encounter
--- OUTSIDE RECORDS SUMMARY | 2025-10-12 21:57 | XMS_ITS | Clinical Summary ---
Author Organization [facility] Address [address] [place] [address] Care Team Providers Care Smoke Jumper Name Role Phone Jay Howell MD Primary Care Provider [phone] Allergies Active Allergy Reactions Criticality Noted Date Comments Morphine And Codeine Other (See Comments),Unknown - Low Severity,Unknown (See Comments) Low 2014 Listed per [facility] MAR. Nitrofurantoin Unknown - Low Severity [...] 03/23/2024 History of pulmonary embolus (PE) 03/14/2024 ocean transportation intermediary current use of anticoagulant Fatigue 03/14/2024 Atopic [...] of chest/PE protocol. Patient was sent to [facility] radiology department for CT scan today. [...] new referral to a cardiovascular surgeon at [facility]. She reports she has seen Dr. Mickey Alcantara in the past. Coronary artery disease invo lving coronary bypass graft of algaaciq heart without angina pectoris 04/28/2023 Assessment & Plan (09/30/2023 4:12 PM EST): She is on Statin, BB,CCB, ARB, ASA, Ranexa, and Warfarin. Continue current medication. Assessment & Plan (05/02/2023 5:03 PM EDT): She has a known history of coronary artery disease. She has denied any chest pain. Her last heart catheterization was November 25, 2022 at [facility] in [place] showing: -last [facility] 11/25/2022- A. 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 Not on file Not on file Not [...] , 06/30/2020, Additional history exists COVID-19 Vaccine (2024-2 6 season) 2025 12/09/2021, 02/17/2021, 01/27/2021 HEMOGLOBIN A1C 11/03/2025 05/03/2025, 06/0 01/2024, 03/20/2024, Additional history exists TDAP/TD VACCINES (2 - Td or Tdap) 01/19/2034 01/20/2024, 07/26/2011, 07/07/2005 Pneumococcal Vaccine 50+ Completed 017, 07/26/2013, 07/23/2010, Additional history exists Insurance MEDICARE A & B Care Teams Smoke Jumper Relationship Specialty Start Date End Date Jay Hoewll MD [address] [place] [phone] PCP - General Emergency Medicine 04/28/23
--- OUTSIDE RECORDS SUMMARY | 2025-10-12 21:57 | XMS_ITS | Encounter Summary ---
Author Organization [employer] ([place], [place], [place], [place], [place]) Address [address] [place] [address] Care Team Providers Care Obstetrics Specialist Name Role Phone Jay Howell MD Primary Care Provider [phone] Encounter Details Date Type Department Care Team (Late st Contact Info) Description 03/19/2021 Transcribed Document [facility] [place] [address] [place] [address] ProviderJessie MD [address] [place], [place] [phone] Social History Tobacco Use Types Packs/Day Years Used Date Smoking Tobacco: Never Assessed Comments Unknown Sex and Gender Information Value Date Recorded Sex Assigned at Not on file Legal Sex Female 7:30 PM CDT Gender Identity Not on file Sexual Orientation Not on file documented as of this encounter Miscellaneous Notes * Cerner Conversion Note - Jessie ProviderMD - 03/19/2021 8:36 AM CDT Patient: [...] 2. Calcification of the vertebral origins with usdp-sv-eahmqsvy stenosis. 3. Extensive vascular calcification. 4. Severe centrilobular emphysema. CARD: no immediate intervention needed f/u her rehab nurse History of atrial fibrillation, rate controlled. We [...] (High) 03/19/2021 06:06 EDT Electronically signed by Sivan, [facility] Conversion Health And Safety Specialist Cerner at 02/04/2023 2:09 PM CDT documented in this encounter Plan of Treatment Not on file documented as of this encounter Visit Diagnoses Not on filedocumented in this encounter Care Teams Obstetrics Specialist Relationship Specialty Start Date End Date Jay Howell MD [address] [place] [phone] PCP - General Emergency Medicine 11/12/23 documented as of this encounter
--- OUTSIDE RECORDS SUMMARY | 2025-10-12 21:57 | XMS_ITS | Encounter Summary ---
Author Organization [employer] ([place], [place], [place], [place], [place]) Address [address] [place] [address] Care Team Providers Care Christmas Tree Farm Worker Name Role Phone Jay Howell MD Primary Care Provider [phone] Encounter Details Date Type Department Care Team (Late st Contact Info) Description 08/27/2020 Transcribed Document [facility] [place] Family Medicine [address] [place] [address] ProviderJessie MD [address] [place] [address] [phone] Social History Tobacco Use Types Packs/Day Years Used Date Smoking Tobacco: Never Assessed Comments Unknown Sex and Gender Information Value Date Recorded Sex Assigned at Not on file Legal Sex Female 7:30 PM CDT Gender Identity Not on file Sexual Orientation Not on file documented as of this encounter Miscellaneous Notes * Cerner Conversion Note - Jessie ProviderMD - 08/27/2020 2:40 PM CORPORATE PLANNING MANAGER WOCN Inpatient Documentation Entered On: 08/27/2020 14:42 [...] Past Medical History/Comorbidities : *Operation 08/26 RIGHT ASSISTANT PROFESSOR OF PSYCHOLOGY access - ultrasound guided Aortogram with LEFT lower extremity run-off LEFT PT angioplasty (2.5-8n814sb Nanocross) LEFT peroneal angioplasty (2.5-8z681zk Nanocross) RIGHT ASSISTANT PROFESSOR OF PSYCHOLOGY closure (Angioseal) LEFT leg debridement WOCN Assessment [...] Ulcer WOCN Wound Pressure Ulcer Documentation : Isjdgsdsu-Dxfcfg-Nrqt Abnormality: Leg Left Lower, Anterior on 08/27/2020 14:38 by Sujata Mckee Rn-Enterostomal I/W/A Present on Admission to Hospital: Yes I/W/A Type: Other: a/p debridement I/W/A Dressing Status: Moist I/W/A Dressing Activity: Assessed, Dressing changed I/W/A Wound Date of Dressing Change: :[id number]:0.472927:0:0 I/W/A Wound Bed Description: Full-thickness I/W/A Bed [...] Initial set-up application NPWT Inpatient Start Date: 1:[id number]:0.519694:0:0 NPWT Device Used: Renasys Type of Foam/Gauze Applied: Black Foam Number of Black Foam Gauze Applied: 1 Number of TRAC Pads Applied: 1 NPWT Pressure: Continuous NPWT Pressure Settin NPWT Canister Changed: Yes I/W/A Incision/Wound Healing: Initial WOCN Ostomy Documentation : No ostomy assessments reported. Sujata Mckee Rn-Enterostomal - 08/27/2020 14:40 EST Electronically signed by [facility] Conversion Waiter/Waitress Buffet Cerner at 02/04/2023 1:56 PM CDT documented in this encounter Plan of Treatment Not on file documented as of this encounter Visit Diagnoses Not on filedocumented in this encounter Care Teams Christmas Tree Farm Worker Relationship Specialty Start Date End Date Jay Howell MD [address] [place] [phone] PCP - General Emergency Medicine 11/12/23 documented as of this encounter
--- OUTSIDE RECORDS SUMMARY | 2025-10-12 21:57 | XMS_ITS | Encounter Summary ---
Author Organization [employer] ([place], [place], [place], [place], [place]) Address [address] [place] [address] Care Team Providers Care Billet Straightener Name Role Phone Jay Howell MD Primary Care Provider [phone] Encounter Details Date Type Department Care Team (Late st Contact Info) Description 03/03/2021 Transcribed Document [facility] [place] [facility] [address] [place] [address] ProviderJessie MD [address] [place] [address] Social History Tobacco Use Types [...] Jessie ProviderMD - 03/03/2021 5:09 PM CDT [facility] [place], [place] [id number] SKYLER MONTOYA :1940 Visit Time:03/03/2021 Your Visit [...] call you with a follow-up appointment Where: [address] [place] [address] [facility] (1) Allergies Macrodantin morphine (rash, rash) Immunizations This Visit No Immunizations Found Medications What How Much When Instructions Next Dose acetaminophen-hydrocodone ([place] 7.5 mg-325 mg oral tablet) 1 Tablet(s) Oral Every 6 Hours as needed for for pain Pickup at [place] [address] lidocaine topical (Lidoderm 5% topical film) 1 Patch(es) TransDermal Every Day Pickup at [place] [address] ALPRAZolam (Xanax 0.5 mg oral tablet) 1 [...] MARTÍN MONGE 712: [address] [place] [phone] The home medications listed are only as [...] that cause pain. General instructions ??? Take btlf-pyn-ccxpwiu and prescription medicines only as told by [...] provider. Document Revised: 02/18/2020 Document Reviewed: 02/18/2020 [employer] Patient Education ?? 2020 [employer]. Emergency Awareness and Preventative Care STROKE is [...] Assistance with quitting is available by contacting 6-050-PYIU-NOW. This is a free resource providing counseling, [...] was given the opportunity to ask questions. Patient/Animal Nursery Worker Name: Patient/Animal Nursery Worker Signature: Relationship to Patient: Clinician/Hospital Animal Nursery Worker Signature: Please Provide a Telephone Number Where You Can Be Reached: Is it Permissible To Leave a Message? Date: Electronically signed by Sivan, [facility] Conversion Long Haul Truck Driver Cerner at 02/04/2023 1:58 PM CDT documented in this encounter Plan of Treatment Not on file documented as of this encounter Visit Diagnoses Not on filedocumented in this encounter Care Teams Billet Straightener Relationship Specialty Start Date End Date Jay Howell MD [address] [place] [phone] PCP - General Emergency Medicine 11/12/23 documented as of this encounter
--- OUTSIDE RECORDS SUMMARY | 2025-10-12 21:57 | XMS_ITS | Encounter Summary ---
Author Organization [employer] ([place], [place], [place], [place], [place]) Address [address] [place] [address] Care Team Providers Care Director Machine Name Role Phone Jay Howell MD Primary Care Provider [phone] Encounter Details Date Type Department Care Team (Late st Contact Info) Description 08/28/2020 Transcribed Document [facility] Family Medicine [address] [place] [address] ProviderJessie MD [address] [place] [address] [phone] Social History Tobacco Use Types Packs/Day Years Used Date Smoking Tobacco: Never Assessed Comments Unknown Sex and Gender Information Value Date Recorded Sex Assigned at Not on file Legal Sex Female 7:30 PM CDT Gender Identity Not on file Sexual Orientation Not on file documented as of this encounter Miscellaneous Notes * Cerner Conversion Note - Jessie Yuen MD - 08/28/2020 3:33 PM ENVIRONMENTAL ANALYST On Going Discharge Planning Entered On: 08/28/2020 15:37 EST Performed On: 08/28/2020 15:33 EST by KAVITA PELLETIER RN-Dielectric Embossing Machine OperatorShip Engines Operating Engineer Progress Note Discharge Arrangements : Patient Post-Acute [...] Meeting Medical Necessity : Yes KAVITA PELLETIER RN-Dielectric Embossing Machine Operator - 08/28/2020 15:33 EST Narrative Progress Note Narrative Progress Note : Cx's still pending. IV Vanc/Dapto. Vasc s/o. Pt will need NPWT-CM will obtain prior to dc. List of VEGETABLE LOADER MACHINE OPERATOR's for [place] given to pt. She [...] past after her SIMONA and went to [facility] prior to home with HH. She is agreeable to look at list of VEGETABLE LOADER MACHINE OPERATOR to make an informed decision based on quality and resource use information. Cx's are pending to determine need for IV abx at home. Likely dc in a few days. CM will continue to follow. KAVITA PELLETIER RN-Dielectric Embossing Machine Operator - 08/27/20 15:14:36 KAVITA PELLETIER RN-Dielectric Embossing Machine Operator - 08/28/2020 15:33 EST Electronically signed by Sivan [facility] Conversion Irs Agent Cerner at 02/04/2023 2:13 PM CDT documented in this encounter Plan of Treatment Not on file documented as of this encounter Visit Diagnoses Not on filedocumented in this encounter Care Teams Director Machine Relationship Specialty Start Date End Date Jay Howell MD [address] [place] [phone] PCP - General Emergency Medicine 11/12/23 documented as of this encounter
--- OUTSIDE RECORDS SUMMARY | 2025-10-12 21:57 | XMS_ITS | Encounter Summary ---
Author Organization [employer] ([place], [place], [place], [place], [place]) Address [address] [place] [address] Care Team Providers Care Iron Miner Blasting Name Role Phone Jay Howell MD Primary Care Provider [phone] Encounter Details Date Type Department Care Team (Late st Contact Info) Description 08/28/2020 Transcribed Document [facility] [place] [address] [place] [address] ProviderJessie MD [address] [place] [address] [phone] Social History Tobacco Use Types Packs/Day Years Used Date Smoking Tobacco: Never Assessed Comments Unknown Sex and Gender Information Value Date Recorded Sex Assigned at Not on file Legal Sex Female 7:30 PM CDT Gender Identity Not on file Sexual Orientation Not on file documented as of this encounter Miscellaneous Notes * Cerner Conversion Note - Jessie ProviderMD - 08/28/2020 1:08 PM CUSTOMER ACCOUNT MANAGER Patient: SKYLER MONTOYA Age: 79 Years [...] distal ecchymosis. Palpable DP pulse, audible biphasic VIDEOTAPE OPERATOR signal. Neuromotor intact. VTE Risk Total Score [...] LEFT PT occlusion - distal - 08/26/2020 ([facility];[place]) RIGHT ASSISTANT WINEMAKER access - ultrasound guided Aortogram with LEFT lower extremity run-off LEFT PT angioplasty (2.5-0x048ud Nanocross) LEFT peroneal angioplasty (2.5-2l493az Nanocross) RIGHT ASSISTANT WINEMAKER closure (Angioseal) LEFT leg debridement - H&H, [...] for tomorrow's vac change. - Rx for [place] 5/325mg q4-6h prn pain #20 on chart. - Will need RLE angio with revascularization in near future. - F/u 1 wk w/ Dr. Ver[place] [facility] (09/08 at 1245) - F/u w/ Dr. [...] 24 Hours) Radiology Results (Last 48 hours) [id number] -- 08/25/2020 05:53 CT Abdomen WO W [...] rash) nitrofurantoin (blisters, blisters) Electronically signed by [facility] Conversion Commercial Intern Cerner at 02/04/2023 1:58 PM CDT documented in this encounter Plan of Treatment Not on file documented as of this encounter Visit Diagnoses Not on filedocumented in this encounter Care Teams Iron Miner Blasting Relationship Specialty Start Date End Date Jay Howell MD [address] [place] [phone] PCP - General Emergency Medicine 11/12/23 documented as of this encounter
--- OUTSIDE RECORDS SUMMARY | 2025-10-12 21:57 | XMS_ITS | Encounter Summary ---
Author Organization [employer] ([place], [place], [place], [place], [place]) Address [address] [place] [address] Care Team Providers Care Credit Front Office Developer Name Role Phone Jay Howell MD Primary Care Provider [phone] Encounter Details Date Type Department Care Team (Late st Contact Info) Description 03/19/2021 Transcribed Document [facility] [place] [address] [place] [address] ProviderJessie MD [address] [place], [place] 401351 Social History Tobacco Use Types Packs/Day Years Used Date Smoking Tobacco: Never Assessed Comments Unknown Sex and Gender Information Value Date Recorded Sex Assigned at Not on file Legal Sex Female 7:30 PM CDT Gender Identity Not on file Sexual Orientation Not on file documented as of this encounter Miscellaneous Notes * Cerner Conversion Note - Jessie ProviderMD - 03/19/2021 2:23 PM CDT Nursing [...] filedocumented in this encounter Care Teams Credit Front Office Developer Relationship Specialty Start Date End Date Jay Howell MD [address] [place] [phone] PCP - General Emergency Medicine 11/12/23 documented as of this encounter
--- OUTSIDE RECORDS SUMMARY | 2025-10-12 21:57 | XMS_ITS | Encounter Summary ---
Author Organization [place] [address] Care Team Providers Care Smelter Operator Name Role Phone No Pcp, Per Patient Primary Care Provider Evelyne prabhakar Reason for Visit * Reason Onset Date Comments Procedure 08/21/2025 Angiogram Detail s Encounter Details Date Type Department Care Team ([facility] Contact Info) Description 08/21/2025 Telephone SEP Vascular Surg Edg [address] [facility] [address] [place] [address] Mary Lombardi MA Procedure (Angiogram Details ) Social History Tobacco Use Types Packs/Day Years Used Date Smoking Tobacco: Former Cigarettes Q uit: 1991 Passive Smoke Exposure: Past Smokeless Tobacco: Never Alcohol Use Standard Drinks/Week Comments Not Currently 0 (1 standard drink = 0.6 oz pur e alcohol) [facility] Utilities Answer Date Recorded In the past 12 months has [employer], gas, oil, or water [employer] threatened to shut off services in your home? No 06/23/2025 Overall Financial Resource Strain (CARDIA) Answe r Date Recorded How hard is it for you to pa y for the very basics like food, housing, medical care, and heating? Not very hard 06/23/2025 PHQ-2 Answer Date Recorded PHQ-2 Total Score 0 06/23/2025 [facility] [place] of Occupat ional Health - Occupational Stress [...] money to get more. Never true 06/23/2025 [facility] IP [...] 3:18 PM EST Spoke with Makenzie at [place]. [phone]. Let her know I would be faxing Miladis's angiogram information to her at [phone]. She said she would call Miladis's son since we only have her as an emergency contact. He will be providing transport. Fax confirmation receipt rec'd. The following arrangements have been made for your Angiogram: Hospital: [facility] Date: 08/28/2025 Time: 12:00 PM Arrival [...] documented as of this encounter Care Teams Smelter Operator Relationship Specialty Start Date End Date No Pcp, Per Patient PCP - General 06/04/24 documented as of this encounter
--- OUTSIDE RECORDS SUMMARY | 2025-10-12 21:57 | XMS_ITS | Encounter Summary ---
Author Organization [employer] ([place], [place], [place], [place], [place]) Address [address] [place] [address] Care Team Providers Care Food And Beverage Assistant Manager Name Role Phone Jay Howell MD Primary Care Provider [phone] Encounter Details Date Type Department Care Team (Late st Contact Info) Description 12/21/2018 Transcribed Document [facility] [place] [address] [place] [address] ProviderJessie MD [address] [place] [address] Social History Tobacco Use Types Packs/Day Years Used Date Smoking Tobacco: Never Assessed Comments Unknown Sex and Gender Information Value Date Recorded Sex Assigned at Not on file Legal Sex Female 7:30 PM CDT Gender Identity Not on file Sexual Orientation Not on file documented as of this encounter Miscellaneous Notes * Cerner Conversion Note - Jessie Yuen MD - 12/21/2018 7:18 AM PICKERS MATERIAL HANDLERS Patient: SKYLER MONTOYA Age: 77 years Sex: [...] of motion, Normal strength. Integumentary: Warm, Dry, [place]. Neurologic: Alert, Oriented. Psychiatric: Cooperative, Appropriate mood & affect. Results Review Telemetry DEC 21 04:17 140 110 10 / H 153 3.8 22 0.70 \ DEC 21 04:17 \ 11.5 / 7.2 L 150 / 35.7 \ [facility] 12/20/18; Dr. Fredy Pacheco TECHNIQUE: A 5/6-Serbian sheath placed in the right femoral artery. Right iliac artery angiography was performed using a JR4 diagnostic catheter due to difficulty in advancing safety J-wire across the proximal right common iliac artery. Angiography revealed patent iliac artery with a kink proximally. There is no pressure gradient across the kink. The short 6-Serbian sheath was switched out for a 25 cm 6-Serbian Arrow sheath with the sheath tip into the abdominal aorta for angiography and percutaneous intervention. JL4, JR4 diagnostic catheters were used for selective angiography of the [place]ungnak vessels. JR4 diagnostic catheter was used for selective angiography of the bypass grafts. A 6-Serbian pigtail catheter was advanced in the left [...] additional 162 mg of aspirin in the cath laboratory technician. She was given Aggrastat bolus. Patient received [...] this encounter Care Teams Food And Beverage Assistant Manager Relationship Specialty Start Date End Date Jay Howell MD [address] [place] [phone] PCP - General Emergency Medicine 11/12/23 documented as of this encounter
--- OUTSIDE RECORDS SUMMARY | 2025-10-12 21:57 | XMS_ITS | Clinical Summary ---
Author Organization [facility] Address [address] [place] [address] Care Team Providers Care Gelatin Powder Mixer Name Role Phone Unavailable Primary Care Provider [...]
--- OUTSIDE RECORDS SUMMARY | 2025-10-12 21:57 | XMS_ITS | Encounter Summary ---
Author Organization [employer] ([place], [place], [place], [place], [place]) Address [address] [place] [address] Care Team Providers Care Screw Eye Assembler Name Role Phone Jay Howell MD Primary Care Provider [phone] Encounter Details Date Type Department Care Team (Late st Contact Info) Description 08/28/2020 Transcribed Document [facility] [place] [address] [place] [address] ProviderJessie MD [address] [place] [address] [phone] Social History Tobacco Use Types Packs/Day Years Used Date Smoking Tobacco: Never Assessed Comments Unknown Sex and Gender Information Value Date Recorded Sex Assigned at Not on file Legal Sex Female 7:30 PM CDT Gender Identity Not on file Sexual Orientation Not on file documented as of this encounter Miscellaneous Notes * Cerner Conversion Note - Jessie ProviderMD - 08/28/2020 5:00 PM NUISANCE WILDLIFE SPECIALIST Chart Check - Review Order Profile Entered On: 08/28/2020 18:04 EST Performed On: 08/28/2020 17:00 EST by Jose L Jones RN Chart Check All Active Orders Reviewed : Yes Jose L Jones RN - 08/28/2020 18:04 EST Electronically signed by Sivan [facility] Conversion Manager Talent Management Cerner at 02/04/2023 2:20 PM CDT documented in this encounter Plan of Treatment Not on file documented as of this encounter Visit Diagnoses Not on filedocumented in this encounter Care Teams Screw Eye Assembler Relationship Specialty Start Date End Date Jay Howell MD [address] [place] [phone] PCP - General Emergency Medicine 11/12/23 documented as of this encounter
--- OUTSIDE RECORDS SUMMARY | 2025-10-12 21:57 | XMS_ITS | Encounter Summary ---
Author Organization [employer] ([place], [place], [place], [place], [place]) Address [address] [place] [address] Care Team Providers Care Security Clerk Name Role Phone Jay Howell MD Primary Care Provider [phone] Encounter Details Date Type Department Care Team (Late st Contact Info) Description 02/13/2021 Transcribed Document [facility] [place] [address] [place] [address] ProviderJessie MD [address] [place], [place] [phone] Social History Tobacco Use Types Packs/Day Years Used Date Smoking Tobacco: Never Assessed Comments Unknown Sex and Gender Information Value Date Recorded Sex Assigned at Not on file Legal Sex Female 7:30 PM CDT Gender Identity Not on file Sexual Orientation Not on file documented as of this encounter Miscellaneous Notes * Cerner Conversion Note - Jessie ProviderMD - 02/13/2021 11:30 AM CDT [facility] Endo PreOp Summary Primary Physician: FABY GRIMM MD Finalized Date/Time: 02/13/21 11:03:33 Pt. Name: SKYLER MONTOYA.O.B./Sex: 1940 Female Med Rec #: [id number] Physician: FABY GRIMM MD Financial #: [id number] Pt. Type: O Room/Bed: END/ Admit/Disch: 02/13/21 09:44:00 - Institution: [facility] Endo PreOp Case Times Entry 1 In [...] 02/13/21 11:03 Electronically signed by Sivan [facility] Conversion Chief Controller Station Cerner at 02/04/2023 2:00 PM CDT documented in this encounter Plan of Treatment Not on file documented as of this encounter Visit Diagnoses Not on filedocumented in this encounter Care Teams Security Clerk Relationship Specialty Start Date End Date Jay Howell MD [address] [place] [phone] PCP - General Emergency Medicine 11/12/23 documented as of this encounter
--- OUTSIDE RECORDS SUMMARY | 2025-10-12 21:57 | XMS_ITS | Encounter Summary ---
Author Organization [employer] ([place], [place], [place], [place], [place]) Address [address] [place] [address] Care Team Providers Care Press Operator Heavy Duty Name Role Phone Jay Howell MD Primary Care Provider [phone] Encounter Details Date Type Department Care Team (Late st Contact Info) Description 08/28/[address] [facility] Family Medicine [address] [place] [address] ProviderJessie MD [address] [place] [address] Social History Tobacco Use Types Packs/Day Years Used Date Smoking Tobacco: Never Assessed Comments Unknown Sex and Gender Information Value Date Recorded Sex Assigned at Not on file Legal Sex Female 7:30 PM CDT Gender Identity Not on file Sexual Orientation Not on file documented as of this encounter Miscellaneous Notes * Cerner Conversion Note - Jessie Yuen MD - 08/28/2020 10:32 AM STATION INSPECTOR Patient: SKYLER MONTOYA Age: 79 years [...] level of muscle per surgery *Operation RIGHT SOAP TENDER access - ultrasound guided Aortogram with LEFT lower extremity run-off LEFT PT angioplasty (2.5-0j038yx Nanocross) LEFT peroneal angioplasty (2.5-7x790iy Nanocross) RIGHT SOAP TENDER closure (Angioseal) LEFT leg debridement 08/28/20 seen [...] Level 8.8 mg/dL 08/27/2020 03:40 MICRO: ACC: [id number] ORDER: Culture Wound and Stain DATE: 08/25/2020 05:00 SOURCE: Wound SITE: Leg Lower L Reports Final 08/28/2020 08:57 No growth Pre 08/26/2020 06:23 No growth GS 08/25/2020 07:26 No organisms seen. Few White Blood Cells Rare epithelial cells == ACC: [id number] ORDER: Culture AFB and Stain DATE: 08/26/2020 13:56 SOURCE: Surgical Swab SITE: Leg Lower L Reports AFS 08/27/2020 13:07 No Acid Fast Bacilli seen == ACC: [id number] ORDER: Culture Anaerobic DATE: 08/26/2020 13:56 SOURCE: Surgical Swab SITE: Leg Lower L Reports Pre 08/28/2020 07:01 No Anaerobic growth Pre 08/27/2020 07:47 Culture in progress == ACC: [id number] ORDER: Culture Wound and Stain DATE: 08/26/2020 15:23 SOURCE: Surgical Swab SITE: Leg Lower L Reports Pre 08/27/2020 07:14 No growth GS 08/26/2020 18:13 Few White Blood Cells No organisms seen. == ACC: [id number] ORDER: Culture Fungus DATE: 08/26/2020 13:56 SOURCE: Surgical Swab SITE: Leg Lower L Reports SINDI 08/26/2020 16:09 No Fungal elements seen == ACC: [id number] ORDER: Culture Blood DATE: 08/25/2020 05:01 SOURCE: Blood SITE: Reports Pre 08/28/2020 06:01 No growth at 3 days. Pre 08/27/2020 06:01 No growth at 2 days. Pre 08/26/2020 06:01 No growth at 1 day. Pre 08/25/2020 23:02 Culture less than 24 Hrs old == ACC: [id number] ORDER: Culture Blood DATE: 08/25/2020 05:01 SOURCE: Blood SITE: Reports Pre 08/28/2020 06:01 No growth at 3 days. Pre 08/27/2020 06:01 No growth at 2 days. Pre 08/26/2020 06:01 No growth at 1 day. Pre 08/25/2020 23:02 Culture less than 24 Hrs old == Radiology Results (Last 48 hours) [id number] -- 08/25/2020 05:53 CT Abdomen WO W [...] filedocumented in this encounter Care Teams Press Operator Heavy Duty Relationship Specialty Start Date End Date Jay Howell MD [address] [place] [phone] PCP - General Emergency Medicine 11/12/23 documented as of this encounter
--- OUTSIDE RECORDS SUMMARY | 2025-10-12 21:57 | XMS_ITS | Encounter Summary ---
Author Organization [employer] ([place], [place], [place], [place], [place]) Address [address] [place] [address] Care Team Providers Care Dietary Clerk Name Role Phone Jay Howell MD Primary Care Provider [phone] Encounter Details Date Type Department Care Team (Late st Contact Info) Description 03/03/2021 Transcribed Document [facility] [place] Family Medicine [address] [place] [address] ProviderJessie MD [address] [place], [place] [phone] Social History Tobacco Use Types Packs/Day Years [...] Opportunity For Questions Given : Patient Marek Sanford, Rn - 03/03/2021 17:11 EDT Electronically signed by Sivan [facility] Conversion Bed Placement Coordinator Cerner at 02/04/2023 2:10 PM CDT documented in this encounter Plan of Treatment Not on file documented as of this encounter Visit Diagnoses Not on filedocumented in this encounter Care Teams Dietary Clerk Relationship Specialty Start Date End Date Jay Howell MD [address] [place] [phone] PCP - General Emergency Medicine 11/12/23 documented as of this encounter
--- OUTSIDE RECORDS SUMMARY | 2025-10-12 21:57 | XMS_ITS | Encounter Summary ---
Author Organization [employer] ([place], [place], [place], [place], [place]) Address [address] [place] [address] Care Team Providers Care Molten Iron Pourer Name Role Phone Jay Howell MD Primary Care Provider [phone] Encounter Details Date Type Department Care Team (Late st Contact Info) Description 02/13/2021 Transcribed Document [facility] [place] Family Medicine [address] [place] [address] ProviderJessie MD [address] [place], [place] [phone] Social History Tobacco Use Types Packs/Day Years Used Date Smoking Tobacco: Never Assessed Comments Unknown Sex and Gender Information Value Date Recorded Sex Assigned at Not on file Legal Sex Female 7:30 PM CDT Gender Identity Not on file Sexual Orientation Not on file documented as of this encounter Miscellaneous Notes * Cerner Conversion Note - Jessie ProviderMD - 02/13/2021 12:19 PM CDT Patient Education [...] ??? Working with a diet and nutrition services manager (dietitian) to help create a food plan [...] for some people. General instructions ??? Take vufr-huq-kqsexew and prescription medicines and supplements only as [...] provider. Document Revised: 09/26/2018 Document Reviewed: 09/26/2018 [employer] Patient Education ? 2020 [employer]. Segura's Esophagus Segura's esophagus occurs when the [...] Tomatoes and foods made with tomatoes. ? Pitkin or spicy foods. ? Chocolate and peppermint. ??? Do not drink alcohol. General instructions ??? Take lrnq-bic-zclxypz and prescription medicines only as told by [...] provider. Document Revised: 01/29/2019 Document Reviewed: 01/29/2019 [employer] Patient Education ? 2020 [employer] Vaccines. ESOPHAGOGASTRODUODENOSCOPY Care After Read the instructions outlined [...] eating solid foods. General instructions ??? Take omii-xzf-zwtfzzd and prescription medicines only as told by [...] provider. Document Revised: 01/01/2019 Document Reviewed: 01/23/2017 [employer] Patient Education ? 2020 [employer] Gastritis, Adult Gastritis is inflammation of [...] medicines. These include steroids, antibiotics, and some nxyr-pzt-vygkmux medicines, such as aspirin or ibuprofen. ??? [...] these instructions at home: Medicines ??? Take tuxl-axe-ziwxyxd and prescription medicines only as told by [...] provider. Document Revised: 02/20/2019 Document Reviewed: 02/20/2019 [employer] Patient Education ? 2020 [employer] Colonoscopy, Adult A colonoscopy is a [...] including vitamins, herbs, eye drops, creams, and voau-kms-celfrkp medicines. ??? Any problems you or family [...] tells you to take them. ??? Taking qeqn-lqk-vrrwers medicines, vitamins, herbs, and supplements. General instructions [...] provider. Document Revised: 04/25/2020 Document Reviewed: 04/25/2020 [employer] Patient Education ? 2020 [employer] Colon Polyps Polyps are tissue growths [...] provider. Document Revised: 01/18/2019 Document Reviewed: 01/18/2019 [employer] Patient Education ? 2020 [employer] Vaccines. documented in this encounter Plan of Treatment Not on file documented as of this encounter Visit Diagnoses Not on filedocumented in this encounter Care Teams Molten Iron Pourer Relationship Specialty Start Date End Date Jay Howell MD [address] [place] [phone] PCP - General Emergency Medicine 11/12/23 documented as of this encounter
--- OUTSIDE RECORDS SUMMARY | 2025-10-12 21:57 | XMS_ITS | Encounter Summary ---
Author Organization [employer] ([place], [place], [place], [place], [place]) Address [address] [place] [address] Care Team Providers Care Controlled Area Checker Name Role Phone Jay Howell MD Primary Care Provider [phone] Encounter Details Date Type Department Care Team (Late st Contact Info) Description 10/13/2020 Transcribed Document [facility] [place] Family Medicine [address] [place] [address] ProviderJessie MD [address] [place] [phone] Social History Tobacco Use Types Packs/Day Years Used Date Smoking Tobacco: Never Assessed Comments Unknown Sex and Gender Information Value Date Recorded Sex Assigned at Not on file Legal Sex Female 7:30 PM CDT Gender Identity Not on file Sexual Orientation Not on file documented as of this encounter Miscellaneous Notes * Cerner Conversion Note - Jessie Yuen MD - 10/13/2020 6:59 PM CONSTRUCTION EQUIPMENT TECHNICIAN Patient: SKYLER MONTOYA Age: 79 Years [...] results RTC prn Electronically signed by Sivan [facility] Conversion Scale Adjuster Cerner at 02/04/2023 2:05 PM CDT documented in this encounter Plan of Treatment Not on file documented as of this encounter Visit Diagnoses Not on filedocumented in this encounter Care Teams Controlled Area Checker Relationship Specialty Start Date End Date Jay Howell MD [address] [place] [phone] PCP - General Emergency Medicine 11/12/23 documented as of this encounter
--- OUTSIDE RECORDS SUMMARY | 2025-10-12 21:57 | XMS_ITS | Encounter Summary ---
Author Organization [employer] ([place], [place], [place], [place], [place]) Address [address] [place] [address] Care Team Providers Care Burner Tender Name Role Phone Jay Howell MD Primary Care Provider [phone] Encounter Details Date Type Department Care Team (Late st Contact Info) Description 02/13/2021 Transcribed Document [facility] [place] [place] Family Medicine [address] [place] [address] ProviderJessie MD [address] [place], [place] [address]661 Social History Tobacco Use Types Packs/Day Years Used Date Smoking Tobacco: Never Assessed Comments Unknown Sex and Gender Information Value Date Recorded Sex Assigned at Not on file Legal Sex Female 7:30 PM CDT Gender Identity Not on file Sexual Orientation Not on file documented as of this encounter Miscellaneous Notes * Cerner Conversion Note - Jessie ProviderMD - 02/13/2021 10:47 AM CDT Pre Procedure Adult Entered On: 02/13/2021 10:50 EDT Performed On: 02/13/2021 10:47 EDT by Ludivina Tompkins RN-PATIENT CARE BEDSIDE NON-EXEMPT Height and Weight, Clinical Dosing Height Source : Stated Height Entry Format : [place] Height, Feet : 5 ft(Converted to: 152 cm, 60 Inch) Height, Inches : 4 Inch(Converted to: 0 ft 4 Inch, 10.16 cm) Clinical Height : 162.56 cm Weight Source : Standing scale Weight Entry Format : [place] Clinical Dosing Weight : 71.64 kg Weight, Pounds : 157.6 lb Body Surface Area (BSA) : 1.77 m2 Body Mass Index : 27.1 kg/m2 (HI) Girard Body Weight : 54 kg Ludivina Tompkins [...] test? : No Ludivina Tompkins RN-PATIENT CARE [facility] NON-EXEMPT - 02/13/2021 10:47 EDT Anesthesia/Transfusion History Family History of Anesthesia Reaction : Prior transfusion reaction Type of Transfusion Reaction : Hemolytic reaction Transfusion History : Prior anesthesia without reaction Family History of Anesthesia Reaction : None Ludivina Tompkins RN-PATIENT CARE [facility] NON-EXEMPT - 02/13/2021 10:47 EDT Functional Assessment Living Situation : Home Current Home Treatments : Blood glucose monitoring, CPAP Ludivina Tompkins RN-PATIENT CARE [facility] NON-EXEMPT - 02/13/2021 10:47 EDT [place] Suicide Severity Rating Scale (C-SSRS) CSSRS Past Month Wish to be : No CSSRS Past Month Suicidal Thoughts : No CSSRS Lifetime Suicide Behavior : No Suicide Severity Rating Score : 0 Suicide Severity Rating : No Additional Care Required at this time Ludivina Tompkins RN-PATIENT CARE [facility] NON-EXEMPT - 02/13/2021 10:47 EDT Psychosocial History Chronic/Terminal Illness w/Freq Visits : No Currently in Unsafe Situation : No Ludivina Tompkins RN-PATIENT CARE [facility] NON-EXEMPT - 02/13/2021 10:47 EDT Advance Directive Patient has Advance Directive *Q : No, patient refuses Advance Directive information Ludivina Tompkins RN-PATIENT CARE [facility] NON-EXEMPT - 02/13/2021 10:47 EDT General Info Preferred Name : ilsa Support Person/Patient Plastic Cutter : Yes Support Person/Pt Rep Name : Willard Contact Password : Marvin Support Person/Pt Rep Contact Information : [phone] Want Family/Rep/Phys Notified of Admit : No Emergency Contact #1 : Johnny Montoya Emergency Contact #1 Emergency Contact #1 Relationship : spouse Emergency Contact #2 : - Emergency Contact #2 Phone Number : - Emergency Contact #2 Relationship : - Primary Language : Sudanese Preferred Communication Mode : Verbal Communication Barrier : None Theater Teacher Needed : No Turner, Ludivina, RN-PATIENT CARE BEDSIDE NON-EXEMPT - 02/13/2021 10:47 [...] Scale Risk Level : 25-45 Medium Risk Nebo Fall Interventions : Adequate lighting, Bed in [...] on filedocumented in this encounter Care Teams Burner Tender Relationship Specialty Start Date End Date Jay Howell MD [address] [place] [phone] PCP - General Emergency Medicine 11/12/23 documented as of this encounter
--- OUTSIDE RECORDS SUMMARY | 2025-10-12 21:57 | XMS_ITS | Encounter Summary ---
Author Organization [employer] ([place], [place], [place], [place], [place]) Address [address] [place] [address] Care Team Providers Care Firing Pin Gauger Name Role Phone Jay Howell MD Primary Care Provider [phone] Encounter Details Date Type Department Care Team (Late st Contact Info) Description 02/13/2021 Transcribed Document [facility] [place] [address] [place] [address] ProviderJessie MD [address] [place], [place] [phone] Social History Tobacco Use Types Packs/Day Years Used Date Smoking Tobacco: Never Assessed Comments Unknown Sex and Gender Information Value Date Recorded Sex Assigned at Not on file Legal Sex Female 7:30 PM CDT Gender Identity Not on file Sexual Orientation Not on file documented as of this encounter Miscellaneous Notes * Cerner Conversion Note - Jessie ProviderMD - 02/13/2021 11:43 AM CDT [facility] PACU Summary Primary Physician: FABY GRIMM MD Finalized Date/Time: 02/13/21 12:32:03 Pt. Name: SKYLER MONTOYA.O.B./Sex: 1940 Female Med Rec #: [id number] Physician: FABY GRIMM MD Financial #: [id number] Pt. Type: O Room/Bed: END/ Admit/Disch: 02/13/21 09:44:00 - Institution: [facility] Endo PACU Case Times Entry 1 In [...] on filedocumented in this encounter Care Teams Firing Pin Gauger Relationship Specialty Start Date End Date Jay Howell MD [address] [place] [phone] PCP - General Emergency Medicine 11/12/23 documented as of this encounter
--- OUTSIDE RECORDS SUMMARY | 2025-10-12 21:57 | XMS_ITS | Encounter Summary ---
Author Organization [place] [address] Care Team Providers Care Wildlife Biostation Research Ecologist Name Role Phone No Pcp, Per Patient Primary Care Provider Evelyne prabhakar Reason for Referral * Interventional Radiology (Routine) - Pending Review Specialty Diagnoses / Procedures Referred By Contac t Referred To Contact Radiology Diagnoses PAD (peripheral artery disease) Critical limb ischemia of left lower extremity (HCC) Procedures IR ANGIOGRAM FEMORAL ARTERIO SHIFT Vargas Wolf MD [address] [place] [address] Phone: tel: fax: Referral ID Status Reason Start Date Expiration Date V isits Requested Visits Authorized [id number] Pending Review 08/21/2025 08/21/2026 1 1 Encounter Details Date Type Department Care Team (Late st Contact Info) Description 08/21/2025 Orders Only SEP Vascular Surg Edg [address] [facility] [address] [place] [address] Mary Lombardi MA PAD (peripheral [...] Recorded In the past 12 months has [employer], or [employer] threatened to shut off services in your home? No 06/23/2025 Overall Financial Resource Strain (CARDIA) Answe r Date Recorded How hard is it for you to pa y for the very basics like food, housing, medical care, and heating? Not very hard 06/23/2025 PHQ-2 Answer Date Recorded PHQ-2 Total Score 0 06/23/2025 [facility] - Occupational Stress Questionnaire Answer [...] more. Never true 06/23/2025 [facility] IP Transportation Answer D ate [...] documented as of this encounter Results * IR ANGIOGRAM FEMORAL ARTERIO SHIFT (08/28/2025 3:01 PM EST) Anatomical Region Laterality Modality Interventional R adiology Narrative 09/28/2025 12:06 PM EST DATE OF PROCEDURE: 08/28/2025 PREOPERATIVE DIAGNOSES: RLE critical limb ischemia with rest pain POSTOPERATIVE DIAGNOSES: Same PROCEDURE PERFORMED: 1. US guided access of the left common femoral artery 2. Abdominal aortogram. Right lower extremity angiogram. Radiographic supervision and interpretation 3. BLAST FURNACE OPERATOR of SFA with 4 x 120 mm balloon 4. BLAST FURNACE OPERATOR of DAREN with 2 x 60 mm and 2.5 x 120 mm balloons Mynx closure of 6 Fr arteriotomy SURGEON: Vargas Wolf MD ANESTHESIA: General anesthesia FLUOROSCOPY: Dose: 292 mGy, Time: 19.6 min CONTRAST: 67 ml ESTIMATED BLOOD LOSS: 5 mL SPECIMENS: None COMPLICATIONS: None FINDINGS: Access site was patent but significant disease in mid and distal EXPEDITER AORTA: Patent infrarenal aorta and bilateral renal [...] trunk with severe stenosis at ostium. Occluded BLAST FURNACE OPERATOR proximally for a few cm with [...] significant disease in the mid and distal EXPEDITER, so decision was made to access the proximal EXPEDITER. Under ultrasound guidance, the L EXPEDITER was accessed using a micropuncture needle. X-ray [...] sheath which was advanced to the R EXPEDITER. Angiogram was obtained. A wire and catheter were advanced into the popliteal artery. Angiogram confirmed intraluminal position. BLAST FURNACE OPERATOR of the SFA was performed with [...] the mid DAREN. Angiogram confirmed intraluminal position. BLAST FURNACE OPERATOR of the proximal DAREN was performed with a 2.5 x 120 mm balloon under fluoro. Angiogram revealed no residual flow-limiting stenosis. The wire and catheter were advanced into the distal DAREN. Angiogram confirmed intraluminal position. BLAST FURNACE OPERATOR of the distal DAREN was performed with a 2 x 60 mm balloon. Angiogram revealed residual stenosis. BLAST FURNACE OPERATOR of the distal DAREN was performed [...] DAREN RECOMMENDATIONS: Bed rest for 3 hours. [employer] Voice recognition technology was used to complete this note, and it may contain unintended errors despite the show card writer's best efforts to proofread it. Please contact me with questions. TID: [id number] us Vargas Wolf MD IMG IR ORDERABLES Final Res ult documented in this [...] documented as of this encounter Care Teams Wildlife Biostation Research Ecologist Relationship Specialty Start Date End Date No Pcp, Per Patient PCP - General 06/04/24 documented as of this encounter
--- OUTSIDE RECORDS SUMMARY | 2025-10-12 21:57 | XMS_ITS | Encounter Summary ---
Author Organization [employer] ([place], [place], [place], [place], [place]) Address [address] [place] [address] Care Team Providers Care Leather Fitter Name Role Phone Jay Howell MD Primary Care Provider [phone] Encounter Details Date Type Department Care Team (Late st Contact Info) Description 02/13/2021 Transcribed Document [facility] [place] [address] [place] [address] ProviderJessie MD [address] [place], [place] [address]681 Social History Tobacco Use Types Packs/Day Years [...] filedocumented in this encounter Care Teams Leather Fitter Relationship Specialty Start Date End Date Jay Howell MD [address] [place] [phone] PCP - General Emergency Medicine 11/12/23 documented as of this encounter
--- OUTSIDE RECORDS SUMMARY | 2025-10-12 21:57 | XMS_ITS | Encounter Summary ---
Author Organization [employer] ([place], [place], [place], [place], [place]) Address [address] [place] [address] Care Team Providers Care Men'S Designer Name Role Phone Jay Howell MD Primary Care Provider [phone] Encounter Details Date Type Department Care Team (Late st Contact Info) Description 08/27/2020 Transcribed Document [facility] [place] Family Medicine [address] [place] [address] ProviderJessie MD [address] [place] [phone] Social History Tobacco Use Types Packs/Day Years Used Date Smoking Tobacco: Never Assessed Comments Unknown Sex and Gender Information Value Date Recorded Sex Assigned at Not on file Legal Sex Female 7:30 PM CDT Gender Identity Not on file Sexual Orientation Not on file documented as of this encounter Miscellaneous Notes * Cerner Conversion Note - Historical ProviderMD - 08/27/2020 3:14 PM HOSPITAL TECHNICIAN Consult Phone Call Documentation Entered On: 08/27/2020 15:23 EST Performed On: 08/27/2020 15:14 EST by JOANN DELGADILLO Phone Call for Consults Consult Phone Call/Page Attempt : First call JOANN DELGADILLO - 08/27/2020 15:23 EST Electronically signed by Gayle Finnegan Conversion Principal Administrative Clerk Cerner at 02/04/2023 1:59 PM CDT documented in this encounter Plan of Treatment Not on file documented as of this encounter Visit Diagnoses Not on filedocumented in this encounter Care Teams Men'S Designer Relationship Specialty Start Date End Date Jay Howell MD [address] [place] [phone] PCP - General Emergency Medicine 11/12/23 documented as of this encounter
--- OUTSIDE RECORDS SUMMARY | 2025-10-12 21:57 | XMS_ITS | Encounter Summary ---
Author Organization [employer] ([place], [place], [place], [place], [place]) Address [address] [place] [address] Care Team Providers Care Roughing Mill Operator Name Role Phone Jay Howell MD Primary Care Provider [phone] Encounter Details Date Type Department Care Team (Late st Contact Info) Description 08/28/2020 Transcribed Document [facility] [place] Family Medicine [address] [place] [address] ProviderJessie MD [address] [place] [phone] Social History Tobacco Use Types Packs/Day Years Used Date Smoking Tobacco: Never Assessed Comments Unknown Sex and Gender Information Value Date Recorded Sex Assigned at Not on file Legal Sex Female 7:30 PM CDT Gender Identity Not on file Sexual Orientation Not on file documented as of this encounter Miscellaneous Notes * Cerner Conversion Note - Historical ProviderMD - 08/28/2020 10:16 AM VIDEOTAPE RECORDING ENGINEER Attempt to Treat, PT Entered On: 08/28/2020 [...] schedule allows Notification : RN(Jose L)/PTx/OTx ERIC [place] PT - 08/28/2020 10:27 EST Electronically signed by Sivan [facility] Conversion Logistics System Engineer Cerner at 02/04/2023 2:14 PM CDT documented in this encounter Plan of Treatment Not on file documented as of this encounter Visit Diagnoses Not on filedocumented in this encounter Care Teams Roughing Mill Operator Relationship Specialty Start Date End Date Jay Howell MD [address] [place] [phone] PCP - General Emergency Medicine 11/12/23 documented as of this encounter
--- OUTSIDE RECORDS SUMMARY | 2025-10-12 21:57 | XMS_ITS | Encounter Summary ---
Author Organization [employer] ([place], [place], [place], [place], [place]) Address [address] [place] [address] Care Team Providers Care Pigeon Fancier Name Role Phone Jay Howell MD Primary Care Provider [phone] Encounter Details Date Type Department Care Team (Late st Contact Info) Description 03/19/2021 Transcribed Document [facility] [place] Family Medicine [address] [place] [address] ProviderJessie MD [address] [place], [place] [phone] Social History Tobacco Use Types Packs/Day Years Used Date Smoking Tobacco: Never Assessed Comments Unknown Sex and Gender Information Value Date Recorded Sex Assigned at Not on file Legal Sex Female 7:30 PM CDT Gender Identity Not on file Sexual Orientation Not on file documented as of this encounter Miscellaneous Notes * Cerner Conversion Note - Jessie ProviderMD - 03/19/2021 3:48 PM CDT Final Discharge Planning Entered On: 03/19/2021 15:50 EDT Performed On: 03/19/2021 15:48 EDT by Krystina Giang V, Buffet Manager Sheet Music Salesperson Final Discharge Planning Discharge Arrangements : Patient [...] : Yes Discharge To Care Management : Home/Residential/Retirement or Self Care -01 Krystina Giang V Buffet Manager [facility] - 03/19/2021 15:48 EDT Final Narrative Note Final Narrative Note : DC home with spouse. Follow up with outpatient Physical therapy in home town. IM signed. Krystina Giang V Buffet Manager [facility] - 03/19/2021 15:48 EDT Electronically signed by Sivan [facility] Conversion Financial Associate Cerner at 02/04/2023 2:08 PM CDT documented in this encounter Plan of Treatment Not on file documented as of this encounter Visit Diagnoses Not on filedocumented in this encounter Care Teams Pigeon Fancier Relationship Specialty Start Date End Date Jay Howell MD [address] [place] [phone] PCP - General Emergency Medicine 11/12/23 documented as of this encounter
--- OUTSIDE RECORDS SUMMARY | 2025-10-12 21:57 | XMS_ITS | Encounter Summary ---
Author Organization [facility] Address [address] [place] [address] Care Team Providers Care Bereavement Program Coordinator Name Role Phone Jay Howell MD Primary Care Provider [phone] Encounter Details Date Type Department Care Team (Late st Contact Info) Description 06/08/2012 Conversion Encounter [facility] HISTORICAL CONV [address] [place] [address] Interface, See Report Social History [...] Amado M.D. ' Kailey Ruff APRN [address] [facility], [address] [place] [address] [email or web address] NEW PATIENT EVALUATION SKYLER MONTOYA : 1940 DATE OF VISIT: 06/08/2012 REFERRING PHYSICIAN: Dr. Avtar Moeller PROBLEMS: 1. History of pulmonary embolus. a. Pulmonary embolus diagnosed February 2011 at [facility]. b. Details incomplete. 2. Warfarin therapy. [...] was evidently diagnosed by CT angiogram at [facility]; I do not have records from [...] to Macrodantin. SOCIAL HISTORY: She lives in [place] with her . She is accompanied today by her tkqcenxh-mw-slj who is also a patient of our practice. 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 She is not working now. She does [...] dryness and this is managed by an superintendent pier. She has the hematuria and pain with [...] repeat her anticardiolipin antibody since this can exchange consultant time. If the anticardiolipin antibody is persistently [...] about her diagnosis of pulmonary embolus at [facility] and any additional testing done at that [...] available. Tana Rivera M.D.* TRUNG/rxaldarlene Doc. ID [id number] Rev. #0 cc: Avtar Moeller M.D.* Dr. Etienne De La Paz Page 4 of 4 Page 1 of 4 Authenticated and Edited by TANA RIVERA M.D. On 06/09/12 3:24:05 PM * Interface, See Report - 06/08/2012 4:16 PM EDT Zurdo Schuler M.D. ' Tana Rivera M.D. ' Rosalio Marie M.D. ' STEPHANIE Quezada M.D. ' Heath Amado M.D. ' Kailey Ruff APRN [address] [place] [address], [place] [address] [place] [address] [email or web address] OFFICE NOTE SKYLER MONTOYA : 1940 DATE [...] medicines and I will try to get geriatric social work professor to give her some help with this. Also, I will speak to Dr. De La Paz about this and I have a call into his office. Tana Rivera M.D.* TRUNG/ruperto Doc. ID [id number] Rev. #0 cc: Etienne De La Paz Jr., M.D.* Avtar Moeller M.D.* Page 2 of 2 Page 1 of 2 Authenticated by TANA RIVERA M.D. On 07/07/2012 04:36:41 PM * Interface, See Report - 06/08/2012 4:16 PM EDT Zurdo Schuler M.D. ' Tana Rivera M.D. ' Rosalio Marie M.D. ' STEPHANIE Quezada M.D. ' Heath Amado M.D. ' Kailey Ruff APRN [address] [facility], [address] [place] [id number] [email or web address] OFFICE NOTE SKYLER MONTOYA : 1940 DATE [...] antibodies. Tana Rivera M.D.* RME/rxalw Doc. ID [id number] Rev. #0 cc: Avtar Moeller M.D.* Page 2 of 2 Page 1 of 2 Authenticated by TANA RIVERA M.D. On 08/15/2012 09:44:06 AM * Interface, See Report - 06/08/2012 4:16 PM EDT Zurdo Schuler M.D. ' Tana Rivera M.D. ' Rosalio Marie M.D. ' STEPHANIE Quezada M.D. ' David Calvillo M.D. ' Heath Amado M.D. ' Kailey Ruff APRN [address] [place] [address] [place] [address] [email or web address] OFFICE NOTE SKYLER MONTOYA : 1940 DATE [...] develop. Tana Rivera M.D.* RMEmiliano/rxalw Doc. ID [id number] Rev. #0 cc: Avtar Moeller M.D.* Jorje Watters M.D.* SKYLER MONTOYA : 1940 DATE OF VISIT: 04/26/2013 Page 2 of 2 Page 1 of 2 DOCUMENT CODE :[facility]: PHYSICIAN CODE :[id number]: Authenticated by TANA RIVERA M.D. On 05/04/2013 10:54:04 AM * Interface, See Report - 06/08/2012 4:16 PM EDT Zurdo Schuler M.D. ' Tana Rivera M.D. ' Rosalio Marie M.D. ' STEPHANIE Quezada M.D. ' David Calvillo M.D. ' Heath Amado M.D. ' Kailey Ruff APRN [facility], [place] [address] [place] [address] [employer] [facility] [employer] OFFICE NOTE SKYLER MONTOYA : 1940 [...] develop. Tana Rivera M.D.* RMEmiliano/rxalw Doc. ID [id number] Rev. #0 cc: Avtar Moeller M.D.* Etienne De La Paz Jr., M.D.* Jorje Watters M.D.* SKYLER MONTOYA : 1940 DATE OF VISIT: 07/12/2013 Page 2 of 2 Page 1 of 2 DOCUMENT CODE :[facility]: PHYSICIAN CODE :[id number]: Authenticated by TANA RIVERA M.D. On 07/16/2013 01:57:36 PM documented in this encounter Plan of Treatment Not on file documented as of this encounter Visit Diagnoses Not on filedocumented in this encounter Care Teams Bereavement Program Coordinator Relationship Specialty Start Date End Date Jay Howell MD [address] [place] [address] PCP - General Emergency Medicine 04/28/23 documented as of this encounter
--- OUTSIDE RECORDS SUMMARY | 2025-10-12 21:57 | XMS_ITS | Encounter Summary ---
Author Organization [email or web address] ([place], [place], [place], [place], [place]) Address [address] [place] [address] Care Team Providers Care Psychology Lecturer Name Role Phone Jay Howell MD Primary Care Provider [phone] Encounter Details Date Type Department Care Team (Late st Contact Info) Description 08/28/2020 Transcribed Document [facility] Family Medicine [address] [place] [address] ProviderJessie MD [address] [place] [address] [id number] Social History Tobacco Use Types Packs/Day Years Used Date Smoking Tobacco: Never Assessed Comments Unknown Sex and Gender Information Value Date Recorded Sex Assigned at Not on file Legal Sex Female 7:30 PM CDT Gender Identity Not on file Sexual Orientation Not on file documented as of this encounter Miscellaneous Notes * Cerner Conversion Note - Historical ProviderMD - 08/28/2020 10:17 AM PERFORMANCE SPECIALIST Attempt to Treat, OT Entered On: 08/28/2020 [...] 08/28/2020 14:59 EST Electronically signed by [facility] Conversion Fresh Food Manager Cerner at 02/04/2023 1:59 PM CDT documented in this encounter Plan of Treatment Not on file documented as of this encounter Visit Diagnoses Not on filedocumented in this encounter Care Teams Psychology Lecturer Relationship Specialty Start Date End Date Jay Howell MD [address] [place] [phone] PCP - General Emergency Medicine 11/12/23 documented as of this encounter
--- OUTSIDE RECORDS SUMMARY | 2025-10-12 21:57 | XMS_ITS | Encounter Summary ---
Author Organization [employer] ([place], [place], [place], [place], [place]) Address [address] [place] [address] Care Team Providers Care Nurses Superintendent Name Role Phone Jay Howell MD Primary Care Provider [phone] Encounter Details Date Type Department Care Team (Late st Contact Info) Description 03/03/2021 Transcribed Document [facility] [place] [address] [place] [address] ProviderJessie MD [address] [place] [phone] Social History Tobacco Use Types Packs/Day Years Used Date Smoking Tobacco: Never Assessed Comments Unknown Sex and Gender Information Value Date Recorded Sex Assigned at Not on file Legal Sex Female 7:30 PM CDT Gender Identity Not on file Sexual Orientation Not on file documented as of this encounter Miscellaneous Notes * Cerner Conversion Note - Jessie ProviderMD - 03/03/2021 4:14 PM CDT Patient: [...] CHARLEE - EVA WESLEY RN PCI w/ [place] stent to D1 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 femur repair. Appendectomy ([id number]). uterine suspension. Hysterectomy ([id number]). back surgury. Cholecystectomy ([id number]). Hip replacement ([id number]). cataract surgury.. Family history: Cardiomyopathy Child Stroke [...] EDT Height Source Stated Height Entry Format [place] Height/Length, SENEGALESE (ft) 5 ft Height/Length SENEGALESE 3 Inch CLINICALHEIGHT 160.02 cm [place] Body Weight 52.02 kg Weight Source, ED Critical estimated dosing weight Weight Entry Format [place] Weight Georgian lb 154 lb CLINICALWEIGHT 70 kg Body [...] Radiology results: Radiology Results (Last 48 hours) [id number] -- 03/03/2021 15:59 CR Hip Uni Comp [...] Dr. Charlette Herrera.Transcribed by Gerhard Bhatia PA-C, RJessiTJessi (N), Tea Thornton T.I have personally viewed, interpreted and [...] 17:04 EDT, Discharge to: Home. Prescriptions: Prescription Manager [facility]: [place] 7.5 mg-325 mg oral tablet (Prescribe): 1 [...] on filedocumented in this encounter Care Teams Nurses Superintendent Relationship Specialty Start Date End Date Jay Howell MD [address] [place] [phone] PCP - General Emergency Medicine 11/12/23 documented as of this encounter
--- OUTSIDE RECORDS SUMMARY | 2025-10-12 21:57 | XMS_ITS | Encounter Summary ---
Author Organization [facility] Address [address] [place] [address] Care Team Providers Care Adjunct Professor Name Role Phone Jay Howell MD Primary Care Provider [phone] Encounter Details Date Type Department Care Team (Late st Contact Info) Description 01/20/[address] [facility] [address] [place] [address] Joselito Garza MD [address] [place] [address] Social History Tobacco Use Types [...] in a group home (including now)? No 01/23/2024 CAGE ASSESSMENT [...] drink first t kathleen in the morning (EYE-HISTOLOGY TECHNICIAN) to steady your nerves or to get rid of a hangover? 0 01/21/2024 CAGE Questionnaire Score 0 024 Utilities Answer Date Recorded In the past 12 months has th e PaperG, gas, oil, or water company threatened to [...] Info) Description 10/24/2025 1:30 PM EST Appointment [facility] [address] [place] [address] 10/24/2025 2:20 PM EST Office Visit [facility] [address] [place] [address] Zaida Nichols MD [address] [facility] [address] [place] [address] documented as of this encounter Visit Diagnoses Not on filedocumented in this encounter Additional Health Concerns Assessment Noted Time A fall risk assessment has been complete d for the patient 12/20/2023 2:07 PM EST A Body Mass Index follow-up plan has been documented for the patient 01/26/2024 12:51 PM EDT documented as of this encounter Care Teams Adjunct Professor Relationship Specialty Start Date End Date Jay Howell MD [address] [place] [address] PCP - General 03/08/21 10/06/25 documented as of this encounter
--- OUTSIDE RECORDS SUMMARY | 2025-10-12 21:57 | XMS_ITS | Encounter Summary ---
Author Organization [employer] ([place], [place], [place], [place], [place]) Address [address] [place] [address] Care Team Providers Care Division Head Name Role Phone Jay Howell MD Primary Care Provider [phone] Encounter Details Date Type Department Care Team (Late st Contact Info) Description 08/27/2020 Transcribed Document [facility] [place] Family Medicine [address] [place] [address] ProviderJessie MD [address] [place] [address] [phone] Social History Tobacco Use Types Packs/Day Years Used Date Smoking Tobacco: Never Assessed Comments Unknown Sex and Gender Information Value Date Recorded Sex Assigned at Not on file Legal Sex Female 7:30 PM CDT Gender Identity Not on file Sexual Orientation Not on file documented as of this encounter Miscellaneous Notes * Cerner Conversion Note - Jessie Yuen MD - 08/27/2020 5:54 PM WEBSPHERE DEVELOPER Patient: SKYLER MONTOYA Age: 79 Years [...] multiple stent placements. The patient presented to [facility] ER after recent fall with hematoma [...] Vitamins oral tablet, 1 Tab, Oral, Daily [place] 7.5 mg-325 mg oral tablet, 1 Tab, [...] (High) 08/27/2020 08:41 EST Electronically signed by [facility] Conversion Apiculture Teacher Cerner at 02/04/2023 2:05 PM CDT documented in this encounter Plan of Treatment Not on file documented as of this encounter Visit Diagnoses Not on filedocumented in this encounter Care Teams Division Head Relationship Specialty Start Date End Date Jay Howell MD [address] [place] [phone] PCP - General Emergency Medicine 11/12/23 documented as of this encounter
--- OUTSIDE RECORDS SUMMARY | 2025-10-12 21:57 | XMS_ITS | Encounter Summary ---
Author Organization [employer] ([place], [place], [place], [place], [place]) Address [address] [place] [address] Care Team Providers Care Surgical Endoscopist Name Role Phone Jay oHwell MD Primary Care Provider [phone] Encounter Details Date Type Department Care Team (Late st Contact Info) Description 02/13/2021 Transcribed Document [facility] [place] [place] Family Medicine [address] [place] [address] ProviderJessie MD [address] [place] [address] Social History Tobacco Use Types [...] Yuen MD - 02/13/2021 12:19 PM CDT [facility] [place] [address] SKYLER MONTOYA :1940 Visit Time:02/13/2021 What to do next Your Diagnosis Personal history of colonic polyps Unspecified abdominal pain Follow-Up Appointments Follow Up with FABY GRIMM MD When Only if needed Where: [address] [facility] [address] [place] [address]- Medications What How Much When Instructions Next [...] for some people. General instructions ??? Take ewmt-xup-nfgqqnh and prescription medicines and supplements only as [...] provider. Document Revised: 09/26/2018 Document Reviewed: 09/26/2018 [email or web address] Patient Education ?? 2020 [employer] Segura's Esophagus Segura's esophagus occurs when [...] Tomatoes and foods made with tomatoes. ? [place] or spicy foods. ? Chocolate and peppermint. ??? Do not drink alcohol. General instructions ??? Take txdv-rbj-noifolx and prescription medicines only as told by [...] provider. Document Revised: 01/29/2019 Document Reviewed: 01/29/2019 [email or web address] Patient Education ?? 2020 [employer] ESOPHAGOGASTRODUODENOSCOPY Care After Read the instructions [...] eating solid foods. General instructions ??? Take nxvn-ubo-lcruzel and prescription medicines only as told by [...] provider. Document Revised: 01/01/2019 Document Reviewed: 01/23/2017 [employer] Patient Education ?? 2020 [employer] Gastritis, Adult Gastritis is inflammation of [...] medicines. These include steroids, antibiotics, and some bqih-sbh-uehcvjn medicines, such as aspirin or ibuprofen. ??? [...] these instructions at home: Medicines ??? Take fonb-jpc-rbnkqzv and prescription medicines only as told by [...] Reviewed: 02/20/2019 Elsevier Patient Education ?? 2020 [employer] Colonoscopy, Adult A colonoscopy is a [...] including vitamins, herbs, eye drops, creams, and aioq-ijj-oiqgqxo medicines. ??? Any problems you or family [...] tells you to take them. ??? Taking zldk-lib-iitmenr medicines, vitamins, herbs, and supplements. General instructions [...] provider. Document Revised: 04/25/2020 Document Reviewed: 04/25/2020 [employer] Patient Education ?? 2020 [employer] Colon Polyps Polyps are tissue growths [...] provider. Document Revised: 01/18/2019 Document Reviewed: 01/18/2019 [employer] Patient Education ?? 2019 [employer]. Emergency Awareness and Preventative Care STROKE is [...] Assistance with quitting is available by contacting 3-596-BUZW-NOW. This is a free resource providing counseling, [...] was given the opportunity to ask questions. Patient/Governor Assembler Name: Patient/Governor Assembler Signature: Relationship to Patient: Clinician/Hospital Governor Assembler Signature: Date: Electronically signed by Abel Finnegan Conversion Hybrid Powertrain Development Engineer Cerner at 02/04/2023 2:16 PM CDT documented in this encounter Plan of Treatment Not on file documented as of this encounter Visit Diagnoses Not on filedocumented in this encounter Care Teams Surgical Endoscopist Relationship Specialty Start Date End Date Jay Howell MD [address] [place] [phone] PCP - General Emergency Medicine 11/12/23 documented as of this encounter
--- OUTSIDE RECORDS SUMMARY | 2025-10-12 21:57 | XMS_ITS | Encounter Summary ---
Author Organization [employer] ([place], [place], [place], [place], [place]) Address [address] [place] [address] Care Team Providers Care Hot Knife Cutter Name Role Phone Jay Howell MD Primary Care Provider [phone] Encounter Details Date Type Department Care Team (Late st Contact Info) Description 08/28/2020 Transcribed Document [facility] [place] [address] [place] [address] ProviderJessie MD [address] [place] [phone] Social History Tobacco Use Types Packs/Day Years Used Date Smoking Tobacco: Never Assessed Comments Unknown Sex and Gender Information Value Date Recorded Sex Assigned at Not on file Legal Sex Female 7:30 PM CDT Gender Identity Not on file Sexual Orientation Not on file documented as of this encounter Miscellaneous Notes * Cerner Conversion Note - Jessie Yuen MD - 08/28/2020 11:43 AM ICU MANAGER Patient: SKYLER MONTOYA Age: 79 years Sex: Female : 1940 Associated Diagnoses: None Author: SLICK BRADLEY, [facility] Ms. Montoya is 79 yo female [...] several days. Thank You, Slick Bradley, Dana documented in this encounter Plan of Treatment Not on file documented as of this encounter Visit Diagnoses Not on filedocumented in this encounter Care Teams Hot Knife Cutter Relationship Specialty Start Date End Date Jay Howell MD [address] [place] [phone] PCP - General Emergency Medicine 11/12/23 documented as of this encounter
--- OUTSIDE RECORDS SUMMARY | 2025-10-12 21:57 | XMS_ITS | Encounter Summary ---
Author Organization [employer] ([place], [place], [place], [place], [place]) Address [address] [place] [address] Care Team Providers Care Real Estate Professional Name Role Phone Jay Howell MD Primary Care Provider [phone] Encounter Details Date Type Department Care Team (Late st Contact Info) Description 08/27/2020 Transcribed Document [facility] [place] Family Medicine [address] [place] [address] ProviderJessie MD [address] [place] [phone] Social History Tobacco Use Types Packs/Day Years Used Date Smoking Tobacco: Never Assessed Comments Unknown Sex and Gender Information Value Date Recorded Sex Assigned at Not on file Legal Sex Female 7:30 PM CDT Gender Identity Not on file Sexual Orientation Not on file documented as of this encounter Miscellaneous Notes * Cerner Conversion Note - Historical ProviderMD - 08/27/2020 3:10 PM OBJECT ORIENTED DEVELOPER Patient: SKYLER MONTOYA Age: 79 Years [...] of multiple back surgeries ( 1979, 1997--Dr. Low) -radiculopathy new since fall, no saddle paraesthesia/numbness/tingling/incontinence [...] (High) 08/27/2020 08:41 EST Electronically signed by [facility], [facility] Conversion Hospital Unit Coordinator Cerner at 02/04/2023 2:06 PM CDT documented in this encounter Plan of Treatment Not on file documented as of this encounter Visit Diagnoses Not on filedocumented in this encounter Care Teams Real Estate Professional Relationship Specialty Start Date End Date Jay Howell MD [address] [place] [phone] PCP - General Emergency Medicine 11/12/23 documented as of this encounter
--- OUTSIDE RECORDS SUMMARY | 2025-10-12 21:57 | XMS_ITS | Encounter Summary ---
Author Organization [employer] ([place], [place], [place], [place], [place]) Address [address] [place] [address] Care Team Providers Care Ocean Freight Agent Name Role Phone Jay Howell MD Primary Care Provider [phone] Encounter Details Date Type Department Care Team (Late st Contact Info) Description 08/28/2020 Transcribed Document [facility] [place] [address] [place] [address] ProviderJessie MD [address] [place] [phone] Social History Tobacco Use Types Packs/Day Years Used Date Smoking Tobacco: Never Assessed Comments Unknown Sex and Gender Information Value Date Recorded Sex Assigned at Not on file Legal Sex Female 7:30 PM CDT Gender Identity Not on file Sexual Orientation Not on file documented as of this encounter Miscellaneous Notes * Cerner Conversion Note - Historical ProviderMD - 08/28/2020 9:22 AM CONVEYOR OPERATOR Patient: SKYLER MONTOYA Age: 79 Years [...] (High) 08/28/2020 07:35 EST Electronically signed by [facility], [facility] Conversion Knife Operator Cerner at 02/04/2023 2:12 PM CDT documented in this encounter Plan of Treatment Not on file documented as of this encounter Visit Diagnoses Not on filedocumented in this encounter Care Teams Ocean Freight Agent Relationship Specialty Start Date End Date aJy Howell MD [address] [place] [phone] PCP - General Emergency Medicine 11/12/23 documented as of this encounter
--- OUTSIDE RECORDS SUMMARY | 2025-10-12 21:58 | XMS_ITS | Encounter Summary ---
Author Organization [employer] ([place], [place], [place], [place], [place]) Address [address] [place] [address] Care Team Providers Care Radioactive Waste Disposal Dispatcher Name Role Phone Jay Howell MD Primary Care Provider [phone] Encounter Details Date Type Department Care Team (Late st Contact Info) Description 12/21/2018 Transcribed Document [facility] Family Medicine [address] [place] [address] ProviderJessie MD [address] [place] [address] Social History Tobacco Use Types Packs/Day Years Used Date Smoking Tobacco: Never Assessed Comments Unknown Sex and Gender Information Value Date Recorded Sex Assigned at Not on file Legal Sex Female 7:30 PM CDT Gender Identity Not on file Sexual Orientation Not on file documented as of this encounter Miscellaneous Notes * Cerner Conversion Note - Jessie ProviderMD - 12/21/2018 11:48 AM [employer] [address] , [place] [address] Patient Copy Patient Information: Name: SKYLER MONTOYA Current Date: 12/21/2018 11:48:11 : 1940 Patient Address: [address] [place] [id number] Patient Attending Physician: RFEDY YAÑEZ MD-CAR Primary Care Provider: TARA CHEN (REF), -MED Primary Care Provider Discharge Diagnosis: CAD (coronary artery disease); DM (diabetes mellitus); Exertional angina; HLD (hyperlipidemia); HTN (hypertension); Hx of CABG; DANTE (obstructive sleep apnea); Paroxysmal A-fib Weight on Admission: 158 lb, 0 oz Comment: Follow-up Instructions: With: Address: When: [facility] [address], [place] [address] Business (1) In 1 month 01/21/2019 With: Address: When: [facility] [address], [address] [place], [place] [id number] Business (1) Within 2 to 5 weeks [...] What foods can I eat? GrainsBreads, including Romansh, white, jie, wheat, raisin, rye, oatmeal, and Ivorian. Tortillas that are neither fried nor made with lard or trans fat. Low-fat rolls, including hotdog and hamburger buns and Andorran muffins. Biscuits. Muffins. Waffles. Pancakes. Light popcorn. Whole-grain cereals. Flatbread. [place] toast. Pretzels. Breadsticks. Rusks. Low-fat snacks. Low-fat [...] cottage cheese. Whole-milk cheeses, including blue (fredo), Laurel Armand, Brie, Nate, Maldivian, Havarti, Bangladeshi, cheddar, Camembert, and Dietrich. Whole or 2% milk that is liquid, [...] that has suet, meat fat, or shortening. [place] butter, hydrogenated oils, palm oil, coconut oil, [...] can cause a heart attack (myocardial infarction, MA). CAD is a leading cause of for [...] 12/25/2012 Document Revised: 03/10/2017 Document Reviewed: 02/04/2015 Kinetic Interactive Patient Education ? 2017 [employer] Inc. Groin Site Care Refer to this [...] Document Reviewed: 11/05/2011 ExitCare? Patient Information ?2013 SendTask. Angiogram An angiogram, also called angiography, is [...] including vitamins, herbs, eye drops, creams, and xxbj-uya-yswtufs medicines. ??? Any problems you or family [...] 03/06/2014 Elsevier Interactive Patient Education ? 2017 [employer]on[employer] Inc. Medication Leaflets: valsartan (elin LILY foster) [...] valsartan; ?? if you are on a paa-bpfq-sgmv; ?? if you are dehydrated; or ?? [...] may report side effects to FDA at 3-421-ZXK-0249. What other drugs will affect valsartan? Tell [...] may interact with valsartan, including prescription and yxgi-alu-rbjphuz medicines, vitamins, and herbal products. Not all [...] to ensure that the information provided by [employer]. ('Multum') is accurate, up-to-date, and complete, but no guarantee is made to that effect. Drug information contained herein may be time sensitive. [employer] information has been compiled for use by healthcare practitioners and consumers in the [place] and therefore [employer] does not warrant that uses outside of the [place] are appropriate, unless specifically indicated otherwise. [employer]'s drug information does not endorse drugs, diagnose patients or recommend therapy. [employer]'s drug information is an informational resource designed [...] effective or appropriate for any given patient. [facility] does not assume any responsibility for any aspect of healthcare administered with the aid of information [facility] provides. The information contained herein is not intended to cover all possible uses, directions, precautions, warnings, drug interactions, allergic reactions, or adverse effects. If you have questions about the drugs you are taking, check with your doctor, nurse or pharmacist. Copyright 9833-2724 [facility]. Version: 16.05. Revision Date: 09/08/2016. hydralazine (bob [...] may report side effects to FDA at 8-846-MQM-2032. What other drugs will affect hydralazine? Tell your doctor about all your current medicines and any you start or stop using, especially: ? diazoxide (an injectable blood pressure medication); or ?? an MAO inhibitor--isocarboxazid, linezolid, methylene blue injection, phenelzine, rasagiline, selegiline, tranylcypromine, and others. This list is not complete. Other drugs may interact with hydralazine, including prescription and omdj-xtk-ayuwwbg medicines, vitamins, and herbal products. Not all [...] to ensure that the information provided by [employer]. ('Multum') is accurate, up-to-date, and complete, but no guarantee is made to that effect. Drug information contained herein may be time sensitive. [employer] information has been compiled for use by healthcare practitioners and consumers in the [place] and therefore [employer] does not warrant that uses outside of the [place] are appropriate, unless specifically indicated otherwise. [employer]'s drug information does not endorse drugs, diagnose patients or recommend therapy. [employer] drug information is an informational resource designed [...] effective or appropriate for any given patient. [employer] does not assume any responsibility for any aspect of healthcare administered with the aid of information [employer] provides. The information contained herein is not intended to cover all possible uses, directions, precautions, warnings, drug interactions, allergic reactions, or adverse effects. If you have questions about the drugs you are taking, check with your doctor, nurse or pharmacist. Copyright 7853-1836 [employer]. Version: 5.01. Revision Date: 10/26/2017. amlodipine (am [...] may report side effects to FDA at 9-328-GXA-5244. What other drugs will affect amlodipine? Tell your doctor about all your current medicines and any you start or stop using, especially: ? nitroglycerin; ?? simvastatin (Zocor, Simcor, Vytorin); or ?? any other heart or blood pressure medications. This list is not complete. Other drugs may interact with amlodipine, including prescription and mpul-sve-uiyqafi medicines, vitamins, and herbal products. Not all [...] to ensure that the information provided by [employer]. ('Multum') is accurate, up-to-date, and complete, but no guarantee is made to that effect. Drug information contained herein may be time sensitive. [employer] information has been compiled for use by healthcare practitioners and consumers in the [place] and therefore [employer] does not warrant that uses outside of the [place] are appropriate, unless specifically indicated otherwise. [employer] drug information does not endorse drugs, diagnose patients or recommend therapy. [employer] drug information is an informational resource designed [...] effective or appropriate for any given patient. [employer] does not assume any responsibility for any aspect of healthcare administered with the aid of information [employer] provides. The information contained herein is not intended to cover all possible uses, directions, precautions, warnings, drug interactions, allergic reactions, or adverse effects. If you have questions about the drugs you are taking, check with your doctor, nurse or pharmacist. Copyright 1784-7935 [employer]. Version: 14.01. Revision Date: 01/24/2017. clopidogrel (kloe [...] may report side effects to FDA at 1-180-VYF-6716. What other drugs will affect clopidogrel? Certain other medicines may increase your risk of bleeding, including aspirin. Avoid taking aspirin unless your doctor tells you to. Tell your doctor about all your other medicines, especially: ? any other medicines to treat or prevent blood clots; ?? a stomach acid collar sewer such as omeprazole, Nexium, or Prilosec; ?? an antidepressant; ?? an opioid medication; ?? a blood thinner--warfarin, Coumadin, Jantoven; or ?? NSAIDs (nonsteroidal anti-inflammatory drugs)--ibuprofen (Advil, Motrin), naproxen (Aleve), celecoxib, diclofenac, indomethacin, meloxicam, and others. This list is not complete. Other drugs may affect clopidogrel, including prescription and ftvm-jct-gjhokpe medicines, vitamins, and herbal products. Not all [...] to ensure that the information provided by [employer]. ('Multum') is accurate, up-to-date, and complete, but no guarantee is made to that effect. Drug information contained herein may be time sensitive. [employer] information has been compiled for use by healthcare practitioners and consumers in the [place] and therefore [employer] does not warrant that uses outside of the [place] are appropriate, unless specifically indicated otherwise. [employer] drug information does not endorse drugs, diagnose patients or recommend therapy. [employer] drug information is an informational resource designed [...] effective or appropriate for any given patient. [employer] does not assume any responsibility for any aspect of healthcare administered with the aid of information [employer] provides. The information contained herein is not intended to cover all possible uses, directions, precautions, warnings, drug interactions, allergic reactions, or adverse effects. If you have questions about the drugs you are taking, check with your doctor, nurse or pharmacist. Copyright 1789-7763 [employer]. Version: 15.. Revision Date: 08/07/2018. ranolazine (ra [...] may report side effects to FDA at 5-918-DGV-6099. What other drugs will affect ranolazine? Many [...] interact with ranolazine. This includes prescription and ngxa-rxo-irjzmgh medicines, vitamins, and herbal products. Give a [...] to ensure that the information provided by [employer]. ('Multum') is accurate, up-to-date, and complete, but no guarantee is made to that effect. Drug information contained herein may be time sensitive. [employer] information has been compiled for use by healthcare practitioners and consumers in the [place] and therefore [employer] does not warrant that uses outside of the [place] are appropriate, unless specifically indicated otherwise. [employer] drug information does not endorse drugs, diagnose patients or recommend therapy. [employer] drug information is an informational resource designed [...] effective or appropriate for any given patient. [employer] does not assume any responsibility for any aspect of healthcare administered with the aid of information [employer] provides. The information contained herein is not intended to cover all possible uses, directions, precautions, warnings, drug interactions, allergic reactions, or adverse effects. If you have questions about the drugs you are taking, check with your doctor, nurse or pharmacist. Copyright 9022-3719 [employer]. Version: .. Revision Date: 12/04/2015. CIGARETTE SMOKING: The facts are clear, cigarette smoking will shorten your life. Smoking can cause many illnesses along the way. As a healthcare provider, we recommend that you stop smoking. Assistance with quitting is available by contacting 5-938-HHYT-NOW. This is a free resource providing counseling, [...] Be sure to sign up for the [facility] patient portal, which gives you 09/05 access to your medical information ??? including these discharge instructions ??? using your computer, smartphone, or tablet. Just go to ZPower to get started. Questions? Call . [facility] would like to thank you for allowing us to assist you with your healthcare needs. MICHELE Skaggs JUDY D, (or insurance verification representative) have received the above patient education materials/instructions and have verbalized understanding: Patient Signature _ Date/Time Patient Wireless Team Member Signature (if needed) Date/Time Clinician/Hospital Wireless Team Member Signature (if needed) Date/Time Electronically signed by Sivan, [facility] Conversion Lokie Engineer Cerner at 02/04/2023 1:58 PM CDT documented in this encounter Plan of Treatment Not on file documented as of this encounter Visit Diagnoses Not on filedocumented in this encounter Care Teams Radioactive Waste Disposal Dispatcher Relationship Specialty Start Date End Date Jay Howell MD [address] [place] [phone] PCP - General Emergency Medicine 11/12/23 documented as of this encounter
--- OUTSIDE RECORDS SUMMARY | 2025-10-12 21:58 | XMS_ITS | Encounter Summary ---
Author Organization [employer] ([place], [place], [place], [place], [place]) Address [address] [place] [address] Care Team Providers Care Retail Banking Manager Name Role Phone Jay Howell MD Primary Care Provider [phone] Encounter Details Date Type Department Care Team (Late st Contact Info) Description 12/20/2018 Transcribed Document [facility] [place] Family Medicine [address] [place] [address] ProviderJessie MD [address] [place] [address] [id number] Social History Tobacco Use Types Packs/Day Years Used Date Smoking Tobacco: Never Assessed Comments Unknown Sex and Gender Information Value Date Recorded Sex Assigned at Not on file Legal Sex Female 7:30 PM CDT Gender Identity Not on file Sexual Orientation Not on file documented as of this encounter Miscellaneous Notes * Cerner Conversion Note - Historical ProviderMD - 12/20/2018 1:13 PM EMPLOYEE ADVISER Advance Directive Entered On: 12/20/2018 13:35 EST Performed On: 12/20/2018 13:13 EST by ARTHUR HONEYCUTT Advance Directive Patient has Advance Directive *Q : No, patient requests assist formulating Advance Directive Patient Given Information about AD : Yes Advance Directive Comment : Provided advance directive info. ARTHUR HONEYCUTT - 12/20/2018 13:35 EST Electronically signed by Sivan [facility] Conversion Procurement Professional Logistics Cerner at 02/04/2023 1:55 PM CDT documented in this encounter Plan of Treatment Not on file documented as of this encounter Visit Diagnoses Not on filedocumented in this encounter Care Teams Retail Banking Manager Relationship Specialty Start Date End Date Jay Howell MD [address] [place] [phone] PCP - General Emergency Medicine 11/12/23 documented as of this encounter
--- OUTSIDE RECORDS SUMMARY | 2025-10-12 21:58 | XMS_ITS | Encounter Summary ---
Author Organization [facility] ([place], [place], [place], [place], [place]) Address [address] [place] [address] Care Team Providers Care Boxing Promoter Name Role Phone Jay Howell MD Primary Care Provider [phone] Encounter Details Date Type Department Care Team (Late st Contact Info) Description 12/20/2018 Transcribed Document [facility] [place] Family Medicine [address] [place] [address] ProviderJessie MD [address] [place] [id number] Social History Tobacco Use Types Packs/Day Years Used Date Smoking Tobacco: Never Assessed Comments Unknown Sex and Gender Information Value Date Recorded Sex Assigned at Not on file Legal Sex Female 7:30 PM CDT Gender Identity Not on file Sexual Orientation Not on file documented as of this encounter Miscellaneous Notes * Cerner Conversion Note - Jessie ProviderMD - 12/20/2018 7:39 PM BEAUTY SHOP MANAGER Admission History, Adult Entered On: 12/20/2018 [...] Info Preferred Name : ilsa Support Person/Patient Cleat Maker : Deanna Support Person/Pt Rep Name : Willard Contact Password : Marvin Support Person/Pt Rep Contact Information : [phone] Want Family/Rep/Phys Notified of Admit : No Emergency Contact #1 : na Emergency Contact #1 Phone Number : na Emergency Contact #1 Relationship : na Emergency Contact #2 : na Emergency Contact #2 Phone Number : na Emergency Contact #2 Relationship : na Primary Language : [place] Islander Preferred Communication Mode : Verbal Communication Barrier [...] Scale Risk Level : 25-45 Medium Risk [place] Fall Interventions : Adequate lighting, Assistive devices [...] (Last Updated: 08/13/2013 09:59:59 EDT by KENYON CHAMBERS, MAHENDRA) Substance Abuse: Drug Use Hx: No. (Last Updated: 08/13/2013 09:59:59 EDT by KENYON CHAMBERS RN) Nutrition/Health: Caffeine intake amount: 2. (Last Updated: 08/06/2014 13:58:58 EDT by DAVIDA ISAAC RN) Home/Environment: Lives with Spouse. Living situation: Home/Independent. (Last Updated: 12/14/2014 22:42:39 EST by BIPIN HOFF RN) Height and Weight, Clinical Dosing Height Source : Stated Height Entry Format : [place] Height, Feet : 5 ft(Converted to: 152 cm, 60 Inch) Height, Inches : 3 Inch(Converted to: 0 ft 3 Inch, 7.62 cm) Clinical Height : 160.02 cm Weight Source : Standing scale Weight Entry Format : [place] Clinical Dosing Weight : 71.82 kg Weight, Pounds : 158 lb Body Surface Area (BSA) : 1.75 m2 Body Mass Index : 28 kg/m2 (HI) [place] Body Weight : 52 kg An Ocampo [...] RN - 12/20/2018 19:39 EST Spiritual/Cultural Needs Religion Preference : [employer]aritan Spiritual/Cultural Needs Comment : joseph after surgery or major surgery An Ocampo RN - 12/20/2018 19:39 EST Valuables and Belongings Valuables and Belongings : Clothing, Personal devices Clothing : Common streetwear Clothing Disposition : Bedside Personal Device Disposition : Bedside Personal Devices : Dentures, partial plate An Ocampo RN - 12/20/2018 19:39 EST Electronically signed by [facility] Conversion Patternmaker Plastics Cerner at 02/04/2023 2:16 PM CDT documented in this encounter Plan of Treatment Not on file documented as of this encounter Visit Diagnoses Not on filedocumented in this encounter Care Teams Boxing Promoter Relationship Specialty Start Date End Date Jay Howell MD [address] [place] [phone] PCP - General Emergency Medicine 11/12/23 documented as of this encounter
--- OUTSIDE RECORDS SUMMARY | 2025-10-12 21:58 | XMS_ITS | Encounter Summary ---
Author Organization [employer] ([place], [place], [place], [place], [place]) Address [address] [place] [address] Care Team Providers Care Highwall Drill Operator Name Role Phone Jay Howell MD Primary Care Provider [phone] Encounter Details Date Type Department Care Team (Late st Contact Info) Description 12/20/2018 Transcribed Document [facility] [place] Family Medicine [address] [place] [address] ProviderJessie MD [address] [place] [address] Social History Tobacco Use Types Packs/Day Years Used Date Smoking Tobacco: Never Assessed Comments Unknown Sex and Gender Information Value Date Recorded Sex Assigned at Not on file Legal Sex Female 7:30 PM CDT Gender Identity Not on file Sexual Orientation Not on file documented as of this encounter Miscellaneous Notes * Cerner Conversion Note - Jessie ProviderMD - 12/20/2018 12:01 PM FELT CEMENTER Spiritual Care Assessment Entered On: 12/20/2018 13:37 EST Performed On: 12/20/2018 13:13 EST by ARTHUR HONEYCUTT General Information Initial Visit : Yes Referred by : Patient Referral Reason Comment : Advance directive Ministry Provided to : Patient, Family/Significant other Jew Preference : Christian ARTHUR HONEYCUTT - 12/20/2018 13:35 EST Spiritual [...] supported, Feelings expressed, Information provided Spiritual and Jew : Spiritual/Jew support provided Change, Adjustment and Loss : Provided support for current loss/grief ARTHUR HONEYCUTT P - 12/20/2018 13:35 EST Electronically signed by [facility], [facility] Conversion Knitter Operator Cerner at 02/04/2023 2:01 PM CDT documented in this encounter Plan of Treatment Not on file documented as of this encounter Visit Diagnoses Not on filedocumented in this encounter Care Teams Highwall Drill Operator Relationship Specialty Start Date End Date Jay Howell MD [address] [place] [phone] PCP - General Emergency Medicine 11/12/23 documented as of this encounter
--- OUTSIDE RECORDS SUMMARY | 2025-10-12 21:58 | XMS_ITS | Encounter Summary ---
Author Organization [employer] ([place], [place], [place], [place], [place]) Address [address] [place] [address] Care Team Providers Care Electroformer Name Role Phone Jay Howell MD Primary Care Provider [phone] Encounter Details Date Type Department Care Team (Late st Contact Info) Description 12/14/2018 Transcribed Document [facility] [place] [address] [place] [address] ProviderJessie MD [address] [place] [address] [phone] Social History Tobacco Use Types Packs/Day Years Used Date Smoking Tobacco: Never Assessed Comments Unknown Sex and Gender Information Value Date Recorded Sex Assigned at Not on file Legal Sex Female 7:30 PM CDT Gender Identity Not on file Sexual Orientation Not on file documented as of this encounter Miscellaneous Notes * Cerner Conversion Note - Jessie ProviderMD - 12/14/2018 4:47 PM BUTTER LIQUEFIER CR Chest 2 Vws Ordered: 12/12/2018 Auth (Verified) Reason for Exam: cp 12/13/2018 11:39 12/14/2018 16:47 (FLORENTIN CAMARGO) No further action required documented in this encounter Plan of Treatment Not on file documented as of this encounter Visit Diagnoses Not on filedocumented in this encounter Care Teams Electroformer Relationship Specialty Start Date End Date Jay Howell MD [address] [place] [phone] PCP - General Emergency Medicine 11/12/23 documented as of this encounter
--- OUTSIDE RECORDS SUMMARY | 2025-10-12 21:58 | XMS_ITS | Encounter Summary ---
Author Organization [facility] ([place], [place], [place], [place], [place]) Address [address] [place] [address] Care Team Providers Care Steel Finisher Name Role Phone Jay Howell MD Primary Care Provider [phone] Encounter Details Date Type Department Care Team (Late st Contact Info) Description 12/14/2018 Transcribed Document [facility] [place] [address] [place] [address] ProviderJessie MD [address] [place] [address] Social History Tobacco Use Types Packs/Day Years Used Date Smoking Tobacco: Never Assessed Comments Unknown Sex and Gender Information Value Date Recorded Sex Assigned at Not on file Legal Sex Female 7:30 PM CDT Gender Identity Not on file Sexual Orientation Not on file documented as of this encounter Miscellaneous Notes * Cerner Conversion Note - Historical ProviderMD - 12/14/2018 4:49 PM APPLICATION DEVELOPMENT LIAISON CR Chest 2 Vws Ordered: 12/12/2018 Auth (Verified) Reason for Exam: cp 12/13/2018 11:39 12/14/2018 16:49 (LESTER PILLAI PA) Reviewed by Provider, No further action required X1 12/14/2018 16:47 (FLORENTIN CAMARGO) No further action required Electronically signed by Sivan [facility] Conversion Drilling Inspector Cerner at 02/04/2023 2:04 PM CDT documented in this encounter Plan of Treatment Not on file documented as of this encounter Visit Diagnoses Not on filedocumented in this encounter Care Teams Steel Finisher Relationship Specialty Start Date End Date Jay Howell MD [address] [place] [phone] PCP - General Emergency Medicine 11/12/23 documented as of this encounter
--- OUTSIDE RECORDS SUMMARY | 2025-10-12 21:58 | XMS_ITS | Encounter Summary ---
Author Organization [facility] ([place], [place], [place], [place], [place]) Address [address] [place] [address] Care Team Providers Care Sales Representative Health Insurance Name Role Phone Jay Howell MD Primary Care Provider [phone] Encounter Details Date Type Department Care Team (Late st Contact Info) Description 12/21/[address] [facility] [place] Family Medicine [address] [place] [address] ProviderJessie MD [address] [place] [address] Social History Tobacco Use Types Packs/Day [...] Jessie Yuen MD - 12/21/2018 11:50 AM HOEING ROW BOSS [address] , [place] [address] Patient Copy Patient Information: Name: SKYLER MONTOYA Current Date: 12/21/2018 11:50:40 : 1940 Patient Address: [address] [place] [phone] Patient Attending Physician: FREDY YAÑEZ MD-CAR Primary Care Provider: TARA CHEN (REF), -MED Primary Care Provider Discharge Diagnosis: CAD (coronary artery disease); DM (diabetes mellitus); Exertional angina; HLD (hyperlipidemia); HTN (hypertension); Hx of CABG; DANTE (obstructive sleep apnea); Paroxysmal A-fib Weight on Admission: 158 lb, 0 oz Comment: Follow-up Instructions: With: Address: When: [facility] [address], [place] [address] Business (1) In 1 month 01/21/2019 With: Address: When: [facility] [address], [address] [place], [place] [address] Business (1) Within 2 to 5 weeks [...] What foods can I eat? GrainsBreads, including Serbian, white, jie, wheat, raisin, rye, oatmeal, and Welsh. Tortillas that are neither fried nor made with lard or trans fat. Low-fat rolls, including hotdog and hamburger buns and Cayman Islander muffins. Biscuits. Muffins. Waffles. Pancakes. Light popcorn. Whole-grain cereals. Flatbread. [place] toast. Pretzels. Breadsticks. Rusks. Low-fat snacks. Low-fat [...] including blue (fredo), [place], Brie, Nate, Trinidadian, Havarti, Burkinan, cheddar, Camembert, and Trinity. Whole or 2% milk that is liquid, [...] that has suet, meat fat, or shortening. Lena butter, hydrogenated oils, palm oil, coconut oil, [...] can cause a heart attack (myocardial infarction, [place]). CAD is a leading cause of for [...] 12/25/2012 Document Revised: 03/10/2017 Document Reviewed: 02/04/2015 Pipit Interactive Interactive Patient Education ? 2017 [employer] Inc. Groin Site Care Refer to this [...] Document Reviewed: 11/05/2011 ExitCare? Patient Information ?2013 [employer]. Angiogram An angiogram, also called angiography, is [...] including vitamins, herbs, eye drops, creams, and oacz-ewo-pjspolu medicines. ??? Any problems you or family [...] 03/06/2014 Elsevier Interactive Patient Education ? 2017 [employer]. Medication Leaflets: valsartan (elin LILY foster) [...] valsartan; ?? if you are on a tyu-pidf-lxcm; ?? if you are dehydrated; or ?? [...] may report side effects to FDA at 5-086-HHP-2444. What other drugs will affect valsartan? Tell [...] may interact with valsartan, including prescription and vshf-pqb-bzfisry medicines, vitamins, and herbal products. Not all [...] to ensure that the information provided by [employer] ('[employer]') is accurate, up-to-date, and complete, but no guarantee is made to that effect. Drug information contained herein may be time sensitive. [employer] information has been compiled for use by healthcare practitioners and consumers in the [place] and therefore [employer] does not warrant that uses outside of the [place] are appropriate, unless specifically indicated otherwise. [employer]'s drug information does not endorse drugs, diagnose patients or recommend therapy. [employer]'s drug information is an informational resource designed [...] effective or appropriate for any given patient. [facility] does not assume any responsibility for any aspect of healthcare administered with the aid of information [facility] provides. The information contained herein is not intended to cover all possible uses, directions, precautions, warnings, drug interactions, allergic reactions, or adverse effects. If you have questions about the drugs you are taking, check with your doctor, nurse or pharmacist. Copyright 2438-1061 [facility]. Version: 16.05. Revision Date: 09/08/2016. hydralazine (bob [...] may report side effects to FDA at 4-144-QUE-3544. What other drugs will affect hydralazine? Tell your doctor about all your current medicines and any you start or stop using, especially: ? diazoxide (an injectable blood pressure medication); or ?? an MAO inhibitor--isocarboxazid, linezolid, methylene blue injection, phenelzine, rasagiline, selegiline, tranylcypromine, and others. This list is not complete. Other drugs may interact with hydralazine, including prescription and zrbx-rgv-nxbpysk medicines, vitamins, and herbal products. Not all [...] to ensure that the information provided by [employer]') is accurate, up-to-date, and complete, but no guarantee is made to that effect. Drug information contained herein may be time sensitive. [employer] information has been compiled for use by healthcare practitioners and consumers in the [place] and therefore [employer] does not warrant that uses outside of the [place] are appropriate, unless specifically indicated otherwise. [employer]'s drug information does not endorse drugs, diagnose patients or recommend therapy. [employer] drug information is an informational resource designed [...] effective or appropriate for any given patient. [employer] does not assume any responsibility for any aspect of healthcare administered with the aid of information [employer] provides. The information contained herein is not intended to cover all possible uses, directions, precautions, warnings, drug interactions, allergic reactions, or adverse effects. If you have questions about the drugs you are taking, check with your doctor, nurse or pharmacist. Copyright 3582-3450 [employer]. Version: 5.01. Revision Date: 10/26/2017. amlodipine (am [...] may report side effects to FDA at 8-323-SBJ-9065. What other drugs will affect amlodipine? Tell your doctor about all your current medicines and any you start or stop using, especially: ? nitroglycerin; ?? simvastatin (Zocor, Simcor, Vytorin); or ?? any other heart or blood pressure medications. This list is not complete. Other drugs may interact with amlodipine, including prescription and yajp-fba-jchwibe medicines, vitamins, and herbal products. Not all [...] to ensure that the information provided by [employer]') is accurate, up-to-date, and complete, but no guarantee is made to that effect. Drug information contained herein may be time sensitive. [employer] information has been compiled for use by healthcare practitioners and consumers in the [place] and therefore [employer] does not warrant that uses outside of the [place] are appropriate, unless specifically indicated otherwise. [employer] drug information does not endorse drugs, diagnose patients or recommend therapy. [employer] drug information is an informational resource designed [...] effective or appropriate for any given patient. [employer] does not assume any responsibility for any aspect of healthcare administered with the aid of information [employer] provides. The information contained herein is not intended to cover all possible uses, directions, precautions, warnings, drug interactions, allergic reactions, or adverse effects. If you have questions about the drugs you are taking, check with your doctor, nurse or pharmacist. Copyright 5483-4434 [employer]. Version: 14.01. Revision Date: 01/24/2017. clopidogrel (kloe [...] may report side effects to FDA at 5-975-YZV-0794. What other drugs will affect clopidogrel? Certain other medicines may increase your risk of bleeding, including aspirin. Avoid taking aspirin unless your doctor tells you to. Tell your doctor about all your other medicines, especially: ? any other medicines to treat or prevent blood clots; ?? a stomach acid entry level financial analyst such as omeprazole, Nexium, or Prilosec; ?? an antidepressant; ?? an opioid medication; ?? a blood thinner--warfarin, Coumadin, Jantoven; or ?? NSAIDs (nonsteroidal anti-inflammatory drugs)--ibuprofen (Advil, Motrin), naproxen (Aleve), celecoxib, diclofenac, indomethacin, meloxicam, and others. This list is not complete. Other drugs may affect clopidogrel, including prescription and gnkn-wiz-auufjju medicines, vitamins, and herbal products. Not all [...] to ensure that the information provided by [employer]') is accurate, up-to-date, and complete, but no guarantee is made to that effect. Drug information contained herein may be time sensitive. [employer] information has been compiled for use by healthcare practitioners and consumers in the [place] and therefore [employer] does not warrant that uses outside of the [place] are appropriate, unless specifically indicated otherwise. [employer] drug information does not endorse drugs, diagnose patients or recommend therapy. [employer] drug information is an informational resource designed [...] effective or appropriate for any given patient. [employer] does not assume any responsibility for any aspect of healthcare administered with the aid of information [employer] provides. The information contained herein is not intended to cover all possible uses, directions, precautions, warnings, drug interactions, allergic reactions, or adverse effects. If you have questions about the drugs you are taking, check with your doctor, nurse or pharmacist. Copyright 5709-8079 [employer]. Version: 15.. Revision Date: 08/07/2018. ranolazine (ra [...] may report side effects to FDA at 0-026-NIA-1740. What other drugs will affect ranolazine? Many [...] interact with ranolazine. This includes prescription and hvww-ljz-fhkavna medicines, vitamins, and herbal products. Give a [...] to ensure that the information provided by [employer] ('[employer]') is accurate, up-to-date, and complete, but no guarantee is made to that effect. Drug information contained herein may be time sensitive. [employer] information has been compiled for use by healthcare practitioners and consumers in the [place] and therefore [employer] does not warrant that uses outside of the [place] are appropriate, unless specifically indicated otherwise. [employer] drug information does not endorse drugs, diagnose patients or recommend therapy. [employer] drug information is an informational resource designed [...] effective or appropriate for any given patient. [employer] does not assume any responsibility for any aspect of healthcare administered with the aid of information [employer] provides. The information contained herein is not intended to cover all possible uses, directions, precautions, warnings, drug interactions, allergic reactions, or adverse effects. If you have questions about the drugs you are taking, check with your doctor, nurse or pharmacist. Copyright 1512-6854 [employer]. Version: .. Revision Date: 12/04/2015. CIGARETTE SMOKING: The facts are clear, cigarette smoking will shorten your life. Smoking can cause many illnesses along the way. As a healthcare provider, we recommend that you stop smoking. Assistance with quitting is available by contacting 1-707-MSQP-NOW. This is a free resource providing counseling, [...] Be sure to sign up for the [facility] patient portal, which gives you 09/05 access to your medical information ??? including these discharge instructions ??? using your computer, smartphone, or tablet. Just go to [employer] to get started. Questions? Call . [facility] would like to thank you for allowing us to assist you with your healthcare needs. MICHELE Skaggs JUDY D, (or sales representative health insurance) have received the above patient education materials/instructions and have verbalized understanding: Patient Signature _ Date/Time Patient Insulation Extruder Operator Signature (if needed) Date/Time Clinician/Hospital Insulation Extruder Operator Signature (if needed) Date/Time Electronically signed by Sivan, [facility] Conversion Commercial Lending Assistant Cerner at 02/04/2023 1:57 PM CDT documented in this encounter Plan of Treatment Not on file documented as of this encounter Visit Diagnoses Not on filedocumented in this encounter Care Teams Sales Representative Health Insurance Relationship Specialty Start Date End Date Jay Howell MD [address] [place] [phone] PCP - General Emergency Medicine 11/12/23 documented as of this encounter
--- OUTSIDE RECORDS SUMMARY | 2025-10-12 21:58 | XMS_ITS | Encounter Summary ---
Author Organization [employer] ([place], [place], [place], [place], [place]) Address [address] [place] [address] Care Team Providers Care Hospice Care Sales Consultant Name Role Phone Jay Howell MD Primary Care Provider [phone] Encounter Details Date Type Department Care Team (Late st Contact Info) Description 12/20/2018 Transcribed Document [facility] [place] [address] [place] [address] ProviderJessie MD [address] [place] [address] [phone] Social History Tobacco Use Types Packs/Day Years Used Date Smoking Tobacco: Never Assessed Comments Unknown Sex and Gender Information Value Date Recorded Sex Assigned at Not on file Legal Sex Female 7:30 PM CDT Gender Identity Not on file Sexual Orientation Not on file documented as of this encounter Miscellaneous Notes * Cerner Conversion Note - Jessie ProviderMD - 12/20/2018 3:14 PM TAILOR GARMENT FITTER Pain Assessment Entered On: 12/21/2018 4:53 EST [...] filedocumented in this encounter Care Teams Hospice Care Sales Consultant Relationship Specialty Start Date End Date Jay Howell MD [address] [place] [phone] PCP - General Emergency Medicine 11/12/23 documented as of this encounter
--- OUTSIDE RECORDS SUMMARY | 2025-10-12 21:58 | XMS_ITS | Encounter Summary ---
Author Organization [employer] ([place], [place], [place], [place], [place]) Address [address] [place] [address] Care Team Providers Care Vice President Of Compliance Name Role Phone Jay Howell MD Primary Care Provider [phone] Encounter Details Date Type Department Care Team (Late st Contact Info) Description 12/21/2018 Transcribed Document [facility] [place] Family Medicine [address] [place] [address] ProviderJessie MD [address] [place] [address] Social History Tobacco Use Types Packs/Day Years Used Date Smoking Tobacco: Never Assessed Comments Unknown Sex and Gender Information Value Date Recorded Sex Assigned at Not on file Legal Sex Female 7:30 PM CDT Gender Identity Not on file Sexual Orientation Not on file documented as of this encounter Miscellaneous Notes * Cerner Conversion Note - Jessie Yuen MD - 12/21/2018 10:31 AM COREMAKER BENCH Discharge Instructions Entered On: 12/21/2018 10:31 EST [...] now and restart on 12-24-18 AUSTEN WEAVER, [facility] - 12/21/2018 10:33 EST Electronically signed by [facility], [facility] Conversion Long Winder Tender Cerner at 02/04/2023 1:57 PM CDT documented in this encounter Plan of Treatment Not on file documented as of this encounter Visit Diagnoses Not on filedocumented in this encounter Care Teams Vice President Of Compliance Relationship Specialty Start Date End Date Jay Howell MD [address] [place] [phone] PCP - General Emergency Medicine 11/12/23 documented as of this encounter
--- OUTSIDE RECORDS SUMMARY | 2025-10-12 21:58 | XMS_ITS | Encounter Summary ---
Author Organization [employer] ([place], [place], [place], [place], [place]) Address [address] [place] [address] Care Team Providers Care Dog Obedience Instructor Name Role Phone Jay Howell MD Primary Care Provider [phone] Encounter Details Date Type Department Care Team (Late st Contact Info) Description 12/21/2018 Transcribed Document [facility] [place] Family Medicine [address] [place] [address] ProviderJessie MD [address] [place] [address] Social History Tobacco Use Types Packs/Day Years Used Date Smoking Tobacco: Never Assessed Comments Unknown Sex and Gender Information Value Date Recorded Sex Assigned at Not on file Legal Sex Female 7:30 PM CDT Gender Identity Not on file Sexual Orientation Not on file documented as of this encounter Miscellaneous Notes * Cerner Conversion Note - Jessie ProviderMD - 12/21/2018 9:20 AM SHREDDER TENDER Spiritual Care Short Form Entered On: 12/21/2018 22:31 EST Performed On: 12/21/2018 9:20 EST by JAZZ PINA Chaplain-Non Cert General Information, Spiritual Care Spiritual Care Referred by : Relay Shop Tester initiated Reason for Visit : Initial Ministry Provided to : Patient Intervention/Comment/Summary Points : Visited conducted by Spiritual Slat Basket Maker Helper volunteer Akosua Velasquez Denominational Preference : Spiritism JAZZ PINA Chaplain-Magalis Del Castillo - 12/21/2018 22:31 EST documented in this encounter Plan of Treatment Not on file documented as of this encounter Visit Diagnoses Not on filedocumented in this encounter Care Teams Dog Obedience Instructor Relationship Specialty Start Date End Date Jay Howell MD [address] [place] [phone] PCP - General Emergency Medicine 11/12/23 documented as of this encounter
--- OUTSIDE RECORDS SUMMARY | 2025-10-12 21:58 | XMS_ITS | Encounter Summary ---
Author Organization [employer] ([place], [place], [place], [place], [place]) Address [address] [place] [address] Care Team Providers Care Pot Washer Name Role Phone Jay Howell MD Primary Care Provider [phone] Encounter Details Date Type Department Care Team (Late st Contact Info) Description 12/20/2018 Transcribed Document [facility] [place] [address] [place] [address] ProviderJessie MD [address] [place] [address] Social History Tobacco Use Types Packs/Day Years Used Date Smoking Tobacco: Never Assessed Comments Unknown Sex and Gender Information Value Date Recorded Sex Assigned at Not on file Legal Sex Female 7:30 PM CDT Gender Identity Not on file Sexual Orientation Not on file documented as of this encounter Miscellaneous Notes * Cerner Conversion Note - Jessie Yuen MD - 12/20/2018 3:20 PM SCALEMAKER DATE OF PROCEDURE: LEFT HEART CATHETERIZATION, GRAFT ANGIOGRAPHY, ILIAC ARTERY ANGIOGRAPHY, PERCUTANEOUS INTERVENTION REPORT INDICATION: Lifestyle limiting exertional angina. REFERRING PHYSICIAN: Dr. Adry Dumas and Dr. Avtar Moeller. PROCEDURE: Standard left heart catheterization. TECHNIQUE: A 5/6-Nigerian sheath placed in the right femoral artery. Right iliac artery angiography was performed using a JR4 diagnostic catheter due to difficulty in advancing safety J-wire across the proximal right common iliac artery. Angiography revealed patent iliac artery with a kink proximally. There is no pressure gradient across the kink. The short 6-Nigerian sheath was switched out for a 25 cm 6-Nigerian Arrow sheath with the sheath tip into the abdominal aorta for angiography and percutaneous intervention. JL4, JR4 diagnostic catheters were used for selective angiography of the [place] vessels. JR4 diagnostic catheter was used for selective angiography of the bypass grafts. A 6-Nigerian pigtail catheter was advanced in the left [...] additional 162 mg of aspirin in the lab scientist. She was given Aggrastat bolus. Patient received intracoronary nitroglycerin to optimize coronary vessel sizing. Wood Pacheco M.D. Dict: 12/20/2018 15:20:17 Trans: 12/20/2018 18:55:03 CC1: Wood Pacheco M.D. CC2: Dr. Adry Dumas CC3: Dr. Avtar Moeller documented in this encounter Plan of Treatment Not on file documented as of this encounter Visit Diagnoses Not on filedocumented in this encounter Care Teams Pot Washer Relationship Specialty Start Date End Date Jay Howell MD [address] [place] [phone] PCP - General Emergency Medicine 11/12/23 documented as of this encounter
--- OUTSIDE RECORDS SUMMARY | 2025-10-12 21:58 | XMS_ITS | Encounter Summary ---
Author Organization [employer] ([place], [place], [place], [place], [place]) Address [address] [place] [address] Care Team Providers Care Small Craft Operator Name Role Phone Jay Howell MD Primary Care Provider [phone] Encounter Details Date Type Department Care Team (Late st Contact Info) Description 12/21/2018 Transcribed Document [facility] [place] [address] [place] [address] ProviderJessie MD [address] [place] [address] [phone] Social History Tobacco Use Types Packs/Day Years Used Date Smoking Tobacco: Never Assessed Comments Unknown Sex and Gender Information Value Date Recorded Sex Assigned at Not on file Legal Sex Female 7:30 PM CDT Gender Identity Not on file Sexual Orientation Not on file documented as of this encounter Miscellaneous Notes * Cerner Conversion Note - Jessie ProviderMD - 12/21/2018 9:33 AM MAINFRAME SYSTEMS ADMINISTRATOR Care Management Assessment/Plan Entered On: 12/21/2018 9:34 EST Performed On: 12/21/2018 9:33 EST by ANISH BRAN RN Care Management Note Care Management Note Report : ANISH BRAN RN - 12/21/18 09:37:01 Discharging today ANISH BRAN RN - 12/21/2018 12:24 EST Care Management Note : Order for cardiac rehab to the program at [facility] - they will ocntact pt Documentation Status Complete : Yes ANISH BRAN RN - 12/21/2018 9:33 EST Discharge Planning Details Discharge Home : Home with spouse/significant other Discharge Placement Needs : Home Persons Assisting Patient at Home : Spouse Transportation Needs : Family/Friend ANISH BRAN RN - 12/21/2018 9:33 EST Final Discharge Disposition Note-CM Discharge To Care Management : Home/Residential/Shelter or Self Care -01 ANISH BRAN RN - 12/21/2018 9:33 EST Electronically signed by [facility] Conversion High Lighter Cerner at 02/04/2023 2:07 PM CDT documented in this encounter Plan of Treatment Not on file documented as of this encounter Visit Diagnoses Not on filedocumented in this encounter Care Teams Small Craft Operator Relationship Specialty Start Date End Date Jay Howell MD [address] [place] [phone] PCP - General Emergency Medicine 11/12/23 documented as of this encounter
--- OUTSIDE RECORDS SUMMARY | 2025-10-12 21:58 | XMS_ITS | Encounter Summary ---
Author Organization [employer] ([place], [place], [place], [place], [place]) Address [address] [place] [address] Care Team Providers Care Member Of Congress Name Role Phone Jay Howell MD Primary Care Provider [phone] Encounter Details Date Type Department Care Team (Late st Contact Info) Description 12/20/2018 Transcribed Document [facility] [place] [address] [place] [address] ProviderJessie MD [address] [place] [address] Social History Tobacco Use Types Packs/Day Years Used Date Smoking Tobacco: Never Assessed Comments Unknown Sex and Gender Information Value Date Recorded Sex Assigned at Not on file Legal Sex Female 7:30 PM CDT Gender Identity Not on file Sexual Orientation Not on file documented as of this encounter Miscellaneous Notes * Cerner Conversion Note - Jessie Yuen MD - 12/20/2018 8:00 AM HEAD OF ETHICS AND COMPLIANCE Patient: SKYLER MONTOYA Age: 77 years Sex: Female : 1940 Associated Diagnoses: None Author: FREDY PACHECO MD-CAR Basic Information PCP: Dr. Moeller Mattress Maker: Stephania Garcia MD Chief Complaint Pre-op clearance; shoulder surgery with Dr. Prieto Watters at [facility] Stress test 12/06/18; abnormal History of [...] All Problems Chest pain / SNOMED CT 11108283 / Complaint of Cataract / Patient Care / Confirmed Glaucoma / Patient Care / Confirmed Coronary artery disease / SNOMED CT 9926547538 / Confirmed Stented coronary artery / SNOMED CT 4522608304 / Confirmed High blood pressure / SNOMED CT 68303755 / Confirmed Hyperlipidemia / SNOMED CT 58389687 / Confirmed Clotting disorder / SNOMED CT 066723044 / Confirmed COPD / SNOMED CT 87108012 / Confirmed GERD - Gastro-esophageal reflux disease / SNOMED CT 2023974761 / Confirmed Multiple renal cysts / SNOMED CT 373794418 / Confirmed UTI - Urinary tract infection / SNOMED CT 2493098299 / Confirmed Arthritis / SNOMED CT 7823081 / Confirmed Diabetes mellitus / SNOMED CT 624579651 / Confirmed Blood clot / SNOMED CT 297458296 / Confirmed Emphysema / SNOMED CT 180972386 / Confirmed Apnea, sleep / SNOMED CT 406204496 / Confirmed Hx of pulmonary embolus / SNOMED CT 528976375 / Confirmed Chronic anticoagulation / SNOMED CT 662536357 / Confirmed Atrial fibrillation with RVR / SNOMED CT 0824040511 / Confirmed History of obstructive sleep apnea / IMO 71873743 / Confirmed Histories No education data available. [...] History: Active Cataract Glaucoma Coronary artery disease (0271103427) Stented coronary artery (8233661257) High blood pressure (73343455) Hyperlipidemia (86908759) COPD (96172426) GERD - Gastro-esophageal reflux disease (9993506850) Multiple renal cysts (039976338) UTI - Urinary tract infection (4251438489) Arthritis (1212879) Diabetes mellitus (636816416) Emphysema (135242881) Apnea, sleep (898296306) Hx of pulmonary embolus (849530586) Chronic anticoagulation (377465991) Atrial fibrillation with RVR (0377618471) Family History: Cardiomyopathy Child Stroke Brother Heart attack Brother Sister Leukemia Child Cancer Father Mother Sister Coronary heart disease Child Procedure history: femur repair. Appendectomy (571068198). uterine suspension. Hysterectomy (974928163). back surgury. Coronary artery bypass graft (365567193). Cholecystectomy (46705072). Hip replacement (1421477539). cataract surgury. Social History Social & Psychosocial [...] of motion, Normal strength. Integumentary: Warm, Dry, [place]. Neurologic: Alert, Oriented. Psychiatric: Cooperative. Review / [...] days post cath. Electronically signed by Sivan, [facility] Conversion Quality Project Manager Cerner at 02/04/2023 2:21 PM CDT documented in this encounter Plan of Treatment Not on file documented as of this encounter Visit Diagnoses Not on filedocumented in this encounter Care Teams Member Of Congress Relationship Specialty Start Date End Date Jay Howell MD [address] [place] [phone] PCP - General Emergency Medicine 11/12/23 documented as of this encounter
--- OUTSIDE RECORDS SUMMARY | 2025-10-12 21:58 | XMS_ITS | Encounter Summary ---
Author Organization [employer] ([place], [place], [place], [place], [place]) Address [address] [place] [address] Care Team Providers Care Handle Sander Operator Name Role Phone Jay Howell MD Primary Care Provider [phone] Encounter Details Date Type Department Care Team (Late st Contact Info) Description 12/20/2018 Transcribed Document [facility] [place] Family Medicine [address] [place] [address] ProviderJessie MD [address] [place] [address] [phone] Social History Tobacco Use Types Packs/Day Years Used Date Smoking Tobacco: Never Assessed Comments Unknown Sex and Gender Information Value Date Recorded Sex Assigned at Not on file Legal Sex Female 7:30 PM CDT Gender Identity Not on file Sexual Orientation Not on file documented as of this encounter Miscellaneous Notes * Cerner Conversion Note - Jessie ProviderMD - 12/20/2018 12:01 PM MONUMENT INSTALLER Care Management Assessment/Plan Entered On: 12/21/2018 9:37 EST Performed On: 12/21/2018 9:36 EST by ANISH BRAN RN Care Management Note Care Management Note : Discharging today Documentation Status Complete : Yes ANISH BRAN RN - 12/21/2018 9:36 EST Electronically signed by Sivan [facility] Conversion Security Guard Cerner at 02/04/2023 1:57 PM CDT documented in this encounter Plan of Treatment Not on file documented as of this encounter Visit Diagnoses Not on filedocumented in this encounter Care Teams Handle Sander Operator Relationship Specialty Start Date End Date Jay Howell MD [address] [place] [phone] PCP - General Emergency Medicine 11/12/23 documented as of this encounter
--- OUTSIDE RECORDS SUMMARY | 2025-10-12 21:58 | XMS_ITS | Encounter Summary ---
Author Organization [employer] ([place], [place], [place], [place], [place]) Address [address] [place] [address] Care Team Providers Care Accounts Payable Manager Name Role Phone Jay Howell MD Primary Care Provider [phone] Encounter Details Date Type Department Care Team (Late st Contact Info) Description 12/20/[address] [facility] [place] Family Medicine [address] [place] [address] ProviderJessie MD [address] [place] [address] [phone] Social History Tobacco Use Types Packs/Day Years Used Date Smoking Tobacco: Never Assessed Comments Unknown Sex and Gender Information Value Date Recorded Sex Assigned at Not on file Legal Sex Female 7:30 PM CDT Gender Identity Not on file Sexual Orientation Not on file documented as of this encounter Miscellaneous Notes * Cerner Conversion Note - Jessie ProviderMD - 12/20/2018 11:57 AM VEHICLE ASSEMBLER Pre Procedure Adult Entered On: 12/20/2018 12:01 EST Performed On: 12/20/2018 11:57 EST by VANCE BELTRAN RN Height and Weight, Clinical Dosing Height Source : Stated Height Entry Format : [place] Height, Feet : 5 ft(Converted to: 152 cm, 60 Inch) Height, Inches : 3 Inch(Converted to: 0 ft 3 Inch, 7.62 cm) Clinical Height : 160.02 cm Weight Source : Standing scale Weight Entry Format : [place] Clinical Dosing Weight : 71.82 kg Weight, Pounds : 158 lb Body Surface Area (BSA) : 1.75 m2 Body Mass Index : 28 kg/m2 (HI) [place] Body Weight : 52 kg VANCE BELTRAN RN - 12/20/2018 11:57 EST Health Histories Smoking Status : Smoker, current status unknown Smokeless Tobacco Status : Former smokeless tobacco user, quit more than 30 days ago Desires Tobacco Cessation Medication : No Reason for No Tobacco Cessation Medication : Refuses FDA approved medications VANCE BETLRAN RN - 12/20/2018 11:57 EST Social History (As Of: 12/20/2018 12:01:50 EST) Tobacco: Smoking Status Former smoker. Comments: 11/23/2016 13:03 - DAVIDA ISAAC RN: quite 1994 (Last Updated: 11/23/2016 13:03:39 EST by DAVIDA ISAAC RN) Alcohol: Use in Last 12 Months: No. (Last Updated: 08/13/2013 09:59:59 EDT by EKNYON CHAMBERS RN) Substance Abuse: Drug Use Hx: [...] Info Preferred Name : ilsa Support Person/Patient Crane Ladle Person : Deanna Support Person/Pt Rep Name : Willard Contact Password : Marvin Support Person/Pt Rep Contact Information : [phone] Want Family/Rep/Phys Notified of Admit : No Emergency Contact #1 : na Emergency Contact #1 Phone Number : [place] Emergency Contact #1 Relationship : na Emergency Contact #2 : na Emergency Contact #2 Phone Number : [place] Emergency Contact #2 Relationship : na Primary Language : Malaysian Preferred Communication Mode : Verbal Communication Barrier [...] Scale Risk Level : 0-24 Low Risk [place] Fall Interventions : Bed in low position, Call device within reach, Non-slip footwear, Wheels locked VANCE BELTRAN RN - 12/20/2018 11:57 EST Valuables and Belongings Valuables and Belongings : Clothing Clothing : Common streetwear Clothing Disposition : Bedside VANCE BELTRAN RN - 12/20/2018 11:57 EST Electronically signed by Sivan, [facility] Conversion Warehouse Sorter Cerner at 02/04/2023 2:07 PM CDT documented in this encounter Plan of Treatment Not on file documented as of this encounter Visit Diagnoses Not on filedocumented in this encounter Care Teams Accounts Payable Manager Relationship Specialty Start Date End Date Jay Howell MD [address] [place] [phone] PCP - General Emergency Medicine 11/12/23 documented as of this encounter
--- OUTSIDE RECORDS SUMMARY | 2025-10-12 21:58 | XMS_ITS | Encounter Summary ---
Author Organization [employer] ([place], [place], [place], [place], [place]) Address [address] [place] [address] Care Team Providers Care Commercial Fisherman Name Role Phone Jay Howell MD Primary Care Provider [phone] Encounter Details Date Type Department Care Team (Late st Contact Info) Description 12/20/2018 Transcribed Document [facility] [place] [address] [place] [address] ProviderJessie MD [address] [place] [address] [phone] Social History Tobacco Use Types Packs/Day Years Used Date Smoking Tobacco: Never Assessed Comments Unknown Sex and Gender Information Value Date Recorded Sex Assigned at Not on file Legal Sex Female 7:30 PM CDT Gender Identity Not on file Sexual Orientation Not on file documented as of this encounter Miscellaneous Notes * Cerner Conversion Note - Jessie ProviderMD - 12/20/2018 9:47 PM SALES SUPPORT ASSISTANT Rapid Response Team Documentation Entered On: 12/20/2018 [...] Admission Diagnosis : Atherosclerotic heart disease of [place] coronary artery with other forms of angina pectoris Atherosclerotic heart disease of knik coronary artery with other forms of angina [...] . EKG shows no ST elevation. Cardiac CRATE TIER notified. elevated blood pressure as well. nitro ordered and given. chest pain subsided. Patient Condition at End of Event : No S/S of Acute Distress Patient Disposition Post Event : No change in location/level of care Rapid Response Commercial Fisherman #1 : LO THEODORE RN BENGE, MELISSA V, RN - 12/20/2018 22:51 EST Rapid Response Systems Assessment Oxygen Therapy Mode : Nasal cannula Oxygen Flow Rate : 2 Liter/Min Cardiovascular Symptoms : Chest discomfort at rest Heart Rhythm : Regular Cardiac Rhythm : Normal sinus rhythm LO THEODORE RN - 12/20/2018 22:51 EST Electronically signed by [facility], [facility] Conversion Bakeshop Cleaner Cerner at 02/04/2023 2:10 PM CDT documented in this encounter Plan of Treatment Not on file documented as of this encounter Visit Diagnoses Not on filedocumented in this encounter Care Teams Commercial Fisherman Relationship Specialty Start Date End Date Jay Howell MD [address] [place] [phone] PCP - General Emergency Medicine 11/12/23 documented as of this encounter
--- OUTSIDE RECORDS SUMMARY | 2025-10-12 21:58 | XMS_ITS | Encounter Summary ---
Author Organization [employer] ([place], [place], [place], [place], [place]) Address [address] [place] [address] Care Team Providers Care Business Support Coordinator Name Role Phone Jay Howell MD Primary Care Provider [phone] Encounter Details Date Type Department Care Team (Late st Contact Info) Description 12/20/2018 Transcribed Document [facility] [place] [address] [place] [address] ProviderJessie MD [address] [place] [address] [phone] Social History Tobacco Use Types Packs/Day Years Used Date Smoking Tobacco: Never Assessed Comments Unknown Sex and Gender Information Value Date Recorded Sex Assigned at Not on file Legal Sex Female 7:30 PM CDT Gender Identity Not on file Sexual Orientation Not on file documented as of this encounter Miscellaneous Notes * Cerner Conversion Note - Jessie ProviderMD - 12/20/2018 9:55 PM ACCOUNT MANAGEMENT SPECIALIST Pain Assessment Entered On: 12/21/2018 4:53 [...] filedocumented in this encounter Care Teams Business Support Coordinator Relationship Specialty Start Date End Date Jay Howell MD [address] [place] [phone] PCP - General Emergency Medicine 11/12/23 documented as of this encounter
--- OUTSIDE RECORDS SUMMARY | 2025-10-12 21:58 | XMS_ITS | Encounter Summary ---
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 Name Role Phone Jay Howell MD Primary Care Provider [phone] Encounter Details Date Type Department Care Team (Late st Contact Info) Description 12/21/2018 Transcribed Document [facility] Family Medicine [address] [place] [id number] ProviderJessie MD [address] [place] [id number] Social History Tobacco Use Types Packs/Day Years Used Date Smoking Tobacco: Never Assessed Comments Unknown Sex and Gender Information Value Date Recorded Sex Assigned at Not on file Legal Sex Female 7:30 PM CDT Gender Identity Not on file Sexual Orientation Not on file documented as of this encounter Miscellaneous Notes * Cerner Conversion Note - Jessie ProviderMD - 12/21/2018 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[address] , [place] [address] Patient Copy Patient Information: Name: SKYLER MONTOYA Current Date: 12/21/2018 12:17:17 : 1940 Patient Address: [address] [place] [id number] Patient Attending Physician: FREDY YAÑEZ MD-CAR Primary Care Provider: TARA CHEN (REF), -MED Primary Care Provider Discharge Diagnosis: CAD (coronary artery disease); DM (diabetes mellitus); Exertional angina; HLD (hyperlipidemia); HTN (hypertension); Hx of CABG; DANTE (obstructive sleep apnea); Paroxysmal A-fib Weight on Admission: 158 lb, 0 oz Comment: Follow-up Instructions: With: Address: When: WOO FELICIAEmiliano [address], [place] [address] Business (1) In 1 month 01/21/2019 With: Address: When: [facility] [address], [address] [place], [place] [id number] Business (1) Within 2 to 5 weeks [...] What foods can I eat? GrainsBreads, including Greenlandic, white, jie, wheat, raisin, rye, oatmeal, and Norwegian. Tortillas that are neither fried nor made with lard or trans fat. Low-fat rolls, including hotdog and hamburger buns and Ukrainian muffins. Biscuits. Muffins. Waffles. Pancakes. Light popcorn. [...] cottage cheese. Whole-milk cheeses, including blue (fredo), Charlotte Armand, Brie, Nate, Estonian, Havarti, Citizen Of [place], cheddar, Camembert, and Rye. Whole or 2% milk that is liquid, [...] that has suet, meat fat, or shortening. Monarch butter, hydrogenated oils, palm oil, coconut oil, [...] can cause a heart attack (myocardial infarction, [place]). CAD is a leading cause of for [...] 12/25/2012 Document Revised: 03/10/2017 Document Reviewed: 02/04/2015 Markit Interactive Patient Education ? 2017 [employer] Inc. Groin Site Care Refer to this [...] 11/05/2011 Document Revised: 12/25/2012 Document Reviewed: 11/05/2011 [facility] Patient Information ?2013 [employer]. Angiogram An angiogram, also called angiography, is [...] including vitamins, herbs, eye drops, creams, and pvbw-lny-kdnhuzw medicines. ??? Any problems you or family [...] 07/13/2006 Document Revised: 03/16/2017 Document Reviewed: 03/06/2014 Markit Interactive Patient Education ? 2017 [employer]. Medication Leaflets: valsartan (elin BAUTISTA foster) Rivka [...] valsartan; ?? if you are on a fvd-utmh-vvaw; ?? if you are dehydrated; or ?? [...] may report side effects to FDA at 0-209-LEW-9161. What other drugs will affect valsartan? Tell [...] may interact with valsartan, including prescription and dcbm-sfa-uiaksea medicines, vitamins, and herbal products. Not all [...] to ensure that the information provided by [employer]. ('Multum') is accurate, up-to-date, and complete, but no guarantee is made to that effect. Drug information contained herein may be time sensitive. Talkable information has been compiled for use by healthcare practitioners and consumers in the [place] and therefore Talkable does not warrant that uses outside of the [place] are appropriate, unless specifically indicated otherwise. Pirate Pays drug information does not endorse drugs, diagnose patients or recommend therapy. Startups drug information is an informational resource designed [...] effective or appropriate for any given patient. Talkable does not assume any responsibility for any aspect of healthcare administered with the aid of information Talkable provides. The information contained herein is not intended to cover all possible uses, directions, precautions, warnings, drug interactions, allergic reactions, or adverse effects. If you have questions about the drugs you are taking, check with your doctor, nurse or pharmacist. Copyright 6033-7713 Alinto. Version: 16.05. Revision Date: 09/08/2016. hydralazine (bob [...] may report side effects to FDA at 9-113-GYN-6622. What other drugs will affect hydralazine? Tell your doctor about all your current medicines and any you start or stop using, especially: ? diazoxide (an injectable blood pressure medication); or ?? an MAO inhibitor--isocarboxazid, linezolid, methylene blue injection, phenelzine, rasagiline, selegiline, tranylcypromine, and others. This list is not complete. Other drugs may interact with hydralazine, including prescription and zlsn-phs-tfpmgaa medicines, vitamins, and herbal products. Not all [...] to ensure that the information provided by Alinto. ('Multum') is accurate, up-to-date, and complete, but no guarantee is made to that effect. Drug information contained herein may be time sensitive. Talkable information has been compiled for use by healthcare practitioners and consumers in the [place] and therefore Talkable does not warrant that uses outside of the [place] are appropriate, unless specifically indicated otherwise. Talkable's drug information does not endorse drugs, diagnose patients or recommend therapy. Pirate Pays drug information is an informational resource designed [...] effective or appropriate for any given patient. Talkable does not assume any responsibility for any aspect of healthcare administered with the aid of information Talkable provides. The information contained herein is not intended to cover all possible uses, directions, precautions, warnings, drug interactions, allergic reactions, or adverse effects. If you have questions about the drugs you are taking, check with your doctor, nurse or pharmacist. Copyright 3845-7628 Alinto. Version: 5.01. Revision Date: 10/26/2017. amlodipine (am [facility] What is the most important information [...] may report side effects to FDA at 4-865-DSR-9089. What other drugs will affect amlodipine? Tell your doctor about all your current medicines and any you start or stop using, especially: ? nitroglycerin; ?? simvastatin (Zocor, Simcor, Vytorin); or ?? any other heart or blood pressure medications. This list is not complete. Other drugs may interact with amlodipine, including prescription and swwt-fml-zysiqnb medicines, vitamins, and herbal products. Not all [...] to ensure that the information provided by Alinto. ('Multum') is accurate, up-to-date, and complete, but no guarantee is made to that effect. Drug information contained herein may be time sensitive. Talkable information has been compiled for use by healthcare practitioners and consumers in the [place] and therefore Talkable does not warrant that uses outside of the [place] are appropriate, unless specifically indicated otherwise. Pirate Pays drug information does not endorse drugs, diagnose patients or recommend therapy. [employer] Pays drug information is an informational resource designed [...] effective or appropriate for any given patient. Talkable does not assume any responsibility for any aspect of healthcare administered with the aid of information Talkable provides. The information contained herein is not intended to cover all possible uses, directions, precautions, warnings, drug interactions, allergic reactions, or adverse effects. If you have questions about the drugs you are taking, check with your doctor, nurse or pharmacist. Copyright 4545-6066 Alinto. Version: 14.01. Revision Date: 01/24/2017. clopidogrel (kloe [...] may report side effects to FDA at 4-480-TQK-9287. What other drugs will affect clopidogrel? Certain other medicines may increase your risk of bleeding, including aspirin. Avoid taking aspirin unless your doctor tells you to. Tell your doctor about all your other medicines, especially: ? any other medicines to treat or prevent blood clots; ?? a stomach acid hostage negotiator such as omeprazole, Nexium, or Prilosec; ?? an antidepressant; ?? an opioid medication; ?? a blood thinner--warfarin, Coumadin, Jantoven; or ?? NSAIDs (nonsteroidal anti-inflammatory drugs)--ibuprofen (Advil, Motrin), naproxen (Aleve), celecoxib, diclofenac, indomethacin, meloxicam, and others. This list is not complete. Other drugs may affect clopidogrel, including prescription and pmtq-ucf-hjmhsxc medicines, vitamins, and herbal products. Not all [...] to ensure that the information provided by Alinto. ('Multum') is accurate, up-to-date, and complete, but no guarantee is made to that effect. Drug information contained herein may be time sensitive. Talkable information has been compiled for use by healthcare practitioners and consumers in the [place] and therefore Talkable does not warrant that uses outside of the [place] are appropriate, unless specifically indicated otherwise. Pirate Pays drug information does not endorse drugs, diagnose patients or recommend therapy. Pirate Pays drug information is an informational resource designed [...] effective or appropriate for any given patient. Talkable does not assume any responsibility for any aspect of healthcare administered with the aid of information Talkable provides. The information contained herein is not intended to cover all possible uses, directions, precautions, warnings, drug interactions, allergic reactions, or adverse effects. If you have questions about the drugs you are taking, check with your doctor, nurse or pharmacist. Copyright 4287-9339 Alinto. Version: 15.01. Revision Date: 08/07/2018. ranolazine (ra [...] following drugs: ? clarithromycin; ?? nefazodone; ?? Mccoll's wort; ?? antifungal medicine--itraconazole, ketoconazole; ?? HIV [...] may report side effects to FDA at 5-513-TPD-4259. What other drugs will affect ranolazine? Many [...] interact with ranolazine. This includes prescription and tiyo-ybv-logqgzz medicines, vitamins, and herbal products. Give a [...] to ensure that the information provided by Alinto. ('Multum') is accurate, up-to-date, and complete, but no guarantee is made to that effect. Drug information contained herein may be time sensitive. Talkable information has been compiled for use by healthcare practitioners and consumers in the [place] and therefore Talkable does not warrant that uses outside of the [place] are appropriate, unless specifically indicated otherwise. Talkable's drug information does not endorse drugs, diagnose patients or recommend therapy. Pirate Pays drug information is an informational resource designed [...] effective or appropriate for any given patient. Talkable does not assume any responsibility for any aspect of healthcare administered with the aid of information Talkable provides. The information contained herein is not intended to cover all possible uses, directions, precautions, warnings, drug interactions, allergic reactions, or adverse effects. If you have questions about the drugs you are taking, check with your doctor, nurse or pharmacist. Copyright 3530-4359 Alinto. Version: 11.. Revision Date: 12/04/2015. CIGARETTE SMOKING: The facts are clear, cigarette smoking will shorten your life. Smoking can cause many illnesses along the way. As a healthcare provider, we recommend that you stop smoking. Assistance with quitting is available by contacting 7-419-RTLG-NOW. This is a free resource providing counseling, [...] Be sure to sign up for the [employer] patient portal, which gives you 09/05 access to your medical information ??? including these discharge instructions ??? using your computer, smartphone, or tablet. Just go to [employer] to get started. Questions? Call . [facility] would like to thank you for allowing us to assist you with your healthcare needs. MICHELE Skaggs JUDY D, (or customer development representative) have received the above patient education materials/instructions and have verbalized understanding: Patient Signature _ Date/Time Patient Welt Edge Rounder Signature (if needed) Date/Time Clinician/Hospital Welt Edge Rounder Signature (if needed) Date/Time Electronically signed by Sivan, [facility] Conversion Manager Field Sales Wilmaner at 02/04/2023 2:01 PM CDT documented in this encounter Plan of Treatment Not on file documented as of this encounter Visit Diagnoses Not on filedocumented in this encounter Care Teams Mail Processing Machine Operator Relationship Specialty Start Date End Date Jay Howell MD [address] [place] [phone] PCP - General Emergency Medicine 11/12/23 documented as of this encounter
[2025-10-12 22:04] LABS: Microscopic, Urine URINE MICROSCOPIC (MICROSCOPIC)
[2025-10-12 22:05] LABS: Activated Partial Thrombo Time 25.6 seconds (22.8-30.6); INR 1.13 (0.9-1.1); Prothrombin Time 12.4 seconds (10.1-12.5)
[2025-10-12] MEDS: IOPAMIDOL-370 (76%);100ML BOTTLE 150 ML IV (22:11)
[2025-10-12] MEDS: SODIUM CHLORIDE 0.9% 10ML SYR (RAD ONLY) 10 ML IV (22:11)
[2025-10-12] MEDS: 0.9 % SODIUM CHLORIDE 50 ML VIAL 100 ML IV (22:11)
[2025-10-12 22:12] LABS: Alanine Aminotransferase 23 U/L (12-78); Albumin Level 3.8 g/dl (3.5-5.0); Albumin/Globulin Ratio 1.0 (1.1-1.8); Alkaline Phosphatase 125 U/L (38-126); Anion Gap 11.8 mEq/L (5-15); Aspartate Amino Transferase 46 U/L (14-36); Bilirubin,Total 1.0 mg/dl (0.2-1.3); Blood Urea Nitrogen 28 mg/dl (7-17); Calcium 8.5 mg/dl (8.4-10.2); Carbon Dioxide 23 mmol/L (22.0-30.0); Chloride 105 mmol/L (98-107); Creatinine,Serum 1.20 mg/dl (0.52-1.04); Estimated Glomerular Filt Rate 43 ml/min (>60); GFR (African American) 52 ML/MIN (>60); Globulin 3.9 g/dL (1.3-3.2); Glucose 122 mg/dl (74-100); Magnesium 1.7 mg/dl (1.6-2.3); Potassium 4.8 mmoL/L (3.5-5.1); Sodium 135 mmol/L (136-145); Total Protein,Serum 7.7 g/dl (6.3-8.2)
[2025-10-12 22:13] LABS: Lipase 56 U/L (23-300); Phosphorous 3.7 mg/dl (2.5-4.5)
[2025-10-12 22:14] VITALS: BP 85/53; PULSE 73; RESP 12; TEMP 37.1; O2SAT 95; BMI 19.2
[2025-10-12 22:16] LABS: Bilirubin,Urine Negative (Negative); Color,Urine YELLOW (Yellow); Glucose,Urine (UA) Negative (Negative); Ketones,Urine Negative (Negative); Leukocyte Esterase,Urine Negative (Negative); PH,Urine 5.5 (5.0-8.5); Protein,Urine Negative (Negative); Specific Gravity, Urine 1.010 (1.005-1.030); Urobilinogen,Urine 0.2 EU/dl (0.2)
[2025-10-12 22:18] LABS: C-Reactive Protein 1.4 mg/L (0-4)
[2025-10-12] MEDS: LACTATED RINGERS 1000ML 1,000 ML 999 ML IV (22:23)
[2025-10-12 22:24] VITALS: BP 107/68; PULSE 74; RESP 12; TEMP 37.1; O2SAT 98
[2025-10-12 22:26] LABS: NT Pro Brain Natriuretic Pep. 5350 pg/mL (0-450); Troponin I 0.03 ng/ml (0.00-0.034)
[2025-10-12 22:29] LABS: Barbiturates Screen,Urine Negative ng/ml (<200)
[2025-10-12 22:30] LABS: Amphetamine/Metha Screen,Urine Negative ng/ml (<1000); Benzodiazepines Screen,Urine Negative ng/ml (<200)
[2025-10-12 22:32] LABS: Methadone Screen,Urine Negative ng/ml (<300)
[2025-10-12 22:33] LABS: Opiate Screen,Urine Negative ng/ml (<300); Phencyclidine Screen,Urine Negative ng/ml (<25)
[2025-10-12 22:39] LABS: RBC,Urine Occasional #/hpf (0-3); Squamous Epithelial Cell,Urine Occasional #/hpf (0-5); WBC,Urine Occasional #/hpf (0-3)
--- NOTE | 2025-10-12 22:40 | ECG_ITS ---
APPROVED REPORT Exam: Resting ECG HR:70 bpm ECG Measurements Heart Rate 70 AXES QRSd 100 QRS -19 QT 450 T 51 QTc 471 Conclusion ATRIAL FLUTTER/TACHYCARDIA PROLONGED QT INTERVAL ABNORMAL ECG No STEMI Electronically signed by : NIHARIKA SILVA, 10/13/2025 07:12:46
[2025-10-12 23:02] LABS: Acetaminophen < 10 ug/ml (10-30); Salicylate < 1.0 mg/dL (2.0-20.0)
[2025-10-12 23:04] LABS: VBG HCO3 22.9 mmol/L (23-30); VBG PCO2 40.0 mmol/L (35-51); VBG PH 7.38 mmol/L (7.31-7.41); VBG PO2 109.5 mmol/L (28-40)
[2025-10-12 23:06] LABS: Lactate Venous 2.1 mmol/L (0.4-2.0)
[2025-10-12] MEDS: levETIRAcetam 2,000 MG in 0.9 % SODIUM CHLORIDE 100 ML 240 MG IV (23:10)
[2025-10-13] VITALS (8 sets, daily range): BP systolic 91–128; BP diastolic 40–68; PULSE 66–93; RESP 17–18; TEMP 36.1–36.6; O2SAT 95–97; BMI 17.6
--- NOTE | 2025-10-13 00:45 | EXP.HP ---
History of Present Illness *Admission Date: 10/13/25 *Reason for visit:: seizures *History of present illness: Miladis Montoya is an 84-year-old female with a past medical history of CABG, peripheral artery disease, A-fib RVR, hypertension, hyperlipidemia, diabetes mellitus, sleep apnea, who presents to the emergency department for decreased responsiveness. last known normal was around 230 today. approximately 815 started become less responsive. Said that she is normally alert and answering questions appropriately. They state that on the way over to the ER, she stopped responding. They state that she had a full body shaking that happened when she has taken gabapentin in the past and states that she last took it this morning. She they note that she is prescribed oxycodone but do not know if she has been taking that. They state that throughout the day today, she has been increasingly getting more lethargic and less responsive. In ED GCS of 3 at this time. Due to concern for impending respiratory failure, plan was to intubate the patient, however, patient's son arrived, who states that he is her next of kin and states that they have had multiple conversations and she expressed clearly that she would not want to be intubated and is a DNR. Reportedly began becoming more alert and conversant over time. She is currently AAO and normal mentation Plan is to transfer to [facility] for further management of new onset seizures. Accepted and on waitlist. Will transfer once beds available At this time no further complaints or issues [facility] Disclaimer: The information contained in this section may have been updated after the patient was seen, as this information can be updated by other users. Medical History Fall Acute exacerbation of CHF (congestive heart failure) Acute hypokalemia Minor head injury Frequent falls Hypomagnesemia Stasis ulcer of right lower extremity CHF exacerbation Closed right fibular fracture Closed tibial fracture Macrocytic anemia Peripheral vascular disease Diabetes mellitus GERD (gastroesophageal reflux disease) Chronic kidney disease (CKD) stage G2/A3, mildly decreased glomerular filtration rate (GFR) between 60-89 mL/min/1.73 square meter and albuminuria creatinine ratio greater than 300 mg/g Urinary retention Hyperlipidemia Hypertension Acute UTI Seizure Acquired absence of left leg above knee Atrial fibrillation with RVR CHF (congestive heart failure) PAD (peripheral artery disease) Anemia CHI (closed head injury) Sleep apnea A-fib Emphysema lung Surgical History Hx of CABG Social History Smoking Status: Unknown if ever smoked smoking status stop date: 1991 alcohol intake: never substance use type: denies use current occupational status: retired Travel in the last 8 weeks?: None housing: prison marital status: Have you lived/traveled outside US in past 30 days?: No Contact w/someone who lives/traveled outside US past 30 days?: No Exposure to someone with infectious disease in past 14 days?: No Do you have a fever (greater than 100.4 F or 38 C)?: No Have you tested positive for COVID-19?: No Exposed to someone with COVID-19 in past 14 days?: No Do you have a sore throat?: No Do you have a cough?: No Do you have any weakness?: No Do you have any diarrhea?: No Are you experiencing any unusual bleeding?: No Do you have any muscle aches/pain?: No Do you have any abdominal pain?: No Are you experiencing loss of taste or smell?: No Other Medical History Have you received the Flu Vaccine for this season: No Have you received the Pneumonia Vaccine: Yes Review of Systems Review of Systems Review of systems:: pertinent systems reviewed and negative unless documented below Constitutional Constitutional: Reports system reviewed and no additional complaints, except as documented Eyes Eyes: Reports system reviewed and no additional complaints, except as documented *Cardiovascular Cardiovascular: Reports system reviewed and no additional complaints, except as documented *Respiratory Respiratory: Reports system reviewed and no additional complaints, except as documented *Gastrointestinal Gastrointestinal: Reports system reviewed and no additional complaints, except as documented *Genitourinary Genitourinary: Reports system reviewed and no additional complaints, except as documented *Musculoskeletal Musculoskeletal: Reports system reviewed and no additional complaints, except as documented *Neurologic Neurologic: Reports system reviewed and no additional complaints, except as documented Meds Home Medications and Allergies Home Medications ?Medication ?Instructions ?Recorded ?Confirmed ?Type acetaminophen 500 mg tablet 500 mg PO Q6H 08/18/25 08/18/25 History calcium carbonate (Calcium Antacid) 400 mg PO DAILY 08/18/25 08/18/25 History aspirin 81 mg tablet 81 mg PO DAILY #30 tabs 08/30/25 Rx atorvastatin 40 mg tablet (Lipitor) 40 mg PO QHS #30 tabs 08/30/25 Rx cyanocobalamin (vitamin B-12) 1,000 mcg PO DAILY #30 tabs 08/30/25 Rx 1,000 mcg tablet dorzolamide 2 % eye drops 1 drp ophthalmic (eye) .ahs #10 mL 08/30/25 Rx furosemide 40 mg tablet (Lasix) 40 mg PO DAILY #30 tabs 08/30/25 Rx gabapentin 400 mg capsule 400 mg PO TID #90 caps 08/30/25 Rx latanoprost 0.005 % eye drops 1 drp Eye-Both HS #2.5 mL 08/30/25 Rx (Xalatan) losartan 25 mg tablet 25 mg PO DAILY #30 tabs 08/30/25 Rx metoprolol tartrate 25 mg tablet 25 mg PO BID #60 tabs 08/30/25 Rx nortriptyline 10 mg capsule 10 mg PO QHS #30 caps 08/30/25 Rx (Pamelor) oxycodone 5 mg tablet 5 mg PO TID pain #90 tabs 08/30/25 Rx pantoprazole 40 mg tablet,delayed 40 mg PO BID #60 tabs 08/30/25 Rx release (Protonix) polyethylene glycol 3350 17 17 g PO DAILY #119 grams 08/30/25 Rx gram/dose oral powder (Miralax) ranolazine 1,000 mg 1,000 mg PO DAILY #30 tabs 08/30/25 Rx tablet,extended release,12 hr New Prescriptions to Start Prescriptions: Allergies Allergy/AdvReac Type Severity Reaction Status Date / Time nitrofurantoin (From Allergy Intermediate Rash Verified 08/18/25 20:18 Macrodantin) morphine Allergy Unknown Unknown Verified 08/18/25 20:18 allergy reaction Exam Data for Last 24 hours Vital signs and Labs for Last 24 Hours: Temp Pulse Resp BP Pulse Ox O2 Del Method 98.8 F 74 12 107/68 L 98 Room Air 10/12/25 22:24 10/12/25 22:24 10/12/25 22:24 10/12/25 22:24 10/12/25 22:24 10/12/25 22:24 Laboratory Results - last 24 hr 10/12/25 21:40: Salicylates < 1.0 L, Acetaminophen < 10 L 10/12/25 21:58: Urine Color Yellow, Urine Appearance Clear, Urine pH 5.5, Ur Specific [place] 1.010, Urine Protein Negative, Urine Glucose (UA) Negative, Urine Ketones Negative, Urine Blood Negative, Urine Nitrate Negative, Urine Bilirubin Negative, Urine Urobilinogen 0.2, Ur Leukocyte Esterase Negative, Urine RBC Occasional, Urine WBC Occasional, Ur Squamous Epith Cells Occasional, Urine Bacteria None, Hyaline Casts 3-5 10/12/25 22:00: Urine Opiates Screen Negative, Urine Methadone Screen Negative, Ur Barbituates Screen Negative, Ur Phencyclidine Scrn Negative, Ur Amphetamines Screen Negative, U Benzodiazepines Scrn Negative, Urine Cocaine Screen Negative, U Marijuana (THC) Screen Positive H 10/12/25 22:53: VBG pH 7.38, VBG pCO2 40.0, VBG pO2 109.5 H, VBG HCO3 22.9 L, VBG Total CO2 24.1, VBG O2 Saturation 97.8 H, VBG Base Excess -2.3, VBG Lactic Acid 2.1 H 10/12/25 23:00: Blood Type A Positive, Antibody Screen Negative 10/12/25 : WBC 3.8 L, RBC 2.35 L, Hgb 9.2 L, Hct 27.7 L, MCV 117.9 H, MCH 39.1 H, MCHC 33.2, RDW 14.4, Plt Count 104 L, MPV 12.9 H, Neut % (Auto) 45.6, Lymph % (Auto) 45.6, [place] % (Auto) 8.0, Eos % (Auto) 0.0 L, Baso % (Auto) 0.5, Neut # (Auto) 1.7 L, Lymph # (Auto) 1.7, [place] # (Auto) 0.3, Eos # (Auto) 0.0, Baso # (Auto) 0.0, PT 12.4, INR 1.13 H, APTT 25.6, Sodium 135 L, Potassium 4.8, Chloride 105, Carbon Dioxide 23, Anion Gap 11.8, BUN 28 H, Creatinine 1.20 H, Estimated GFR 43 L, Est GFR ( Amer) 52 L, Glucose 122 H, Calcium 8.5, Phosphorus 3.7, Magnesium 1.7, Total Bilirubin 1.0, AST 46 H, ALT 23, Alkaline Phosphatase 125, Troponin I 0.03, C-Reactive Protein 1.4, NT-Pro-B Natriuret Pep 5350 H, Total Protein 7.7, Albumin 3.8, Globulin 3.9 H, Albumin/Globulin Ratio 1.0 L, Lipase 56 I & O for Last 24 hours: Intake & Output 10/10/25 10/11/25 10/12/25 10/13/25 23:59 23:59 23:59 23:59 Intake Total 120 / 120 1000 / 1000 Balance 120 / 120 1000 / 1000 Weight 58.967 kg Constitutional Constitutional: no acute distress *Routine HEENT Exam Head: Present normocephalic Eye: Present EOMI and PERRL ENT: Present mucous membranes moist *Routine Neck Exam Neck: Present supple; Absent lymphadenopathy *Routine Respiratory Exam Respiratory: Present CTA bilaterally *Routine Cardiovascular Exam Cardiovascular: Present RRR *Routine Abdominal Exam Abdominal: Present soft and normoactive bowel sounds; Absent tenderness *Routine Rectal Exam Rectal:: deferred *Routine Genitalia Exam Genitalia:: deferred *Routine Extremities Exam Extremities: Absent cyanosis, clubbing or edema *Routine Skin Exam Skin: Present warm; Absent rash *Routine Neurological Exam Neurological: Present alert and oriented X3 Assessment and Plan *Assessment and plan (1) Seizure-like activity: Status: Acute Category: Medical Code(s): R29.818 - Other symptoms and signs involving the nervous system (2) AMS (altered mental status): Status: Acute Category: Medical Code(s): R41.82 - Altered mental status, unspecified Plan New onset seizures - accepted at [facility] for neuro eval - admit for monitoring until transfer - keppra load in ED - tele, pulse ox - seizure precautions - supportive management
[2025-10-13 03:06] LABS: Reflex Lactic Add Lactic Reflex
[2025-10-13 05:33] LABS: Hematocrit 24.7 % (37.0-47.0); Hemoglobin 8.3 g/dL (12.2-16.2); Immature Granulocytes % 0.6 %; Mean Corpuscular HGB Conc 33.6 g/dL (31.8-35.4); Mean Corpuscular Hemoglobin 39.2 pg (27.0-31.2); Mean Corpuscular Volume 116.5 fl (81-99); Nucleated Red Blood Cells % 0 %; Platelet Count 65 K/mm3 (142-424); Red Blood Count 2.12 M/mm3 (4.20-5.40); Red Cell Distribution Width-SD 61.5 fL; White Blood Count 3.2 K/mm3 (4.8-10.8)
[2025-10-13 05:34] LABS: Lactic Acid Follow Up (RFLX 1) 1.4 mmol/L (0.7-2.1)
[2025-10-13 05:35] LABS: Albumin Level 3.3 g/dl (3.5-5.0); Chloride 104 mmol/L (98-107); Potassium 4.5 mmoL/L (3.5-5.1); Sodium 134 mmol/L (136-145)
[2025-10-13 05:37] LABS: Alanine Aminotransferase 22 U/L (12-78); Anion Gap 10.5 mEq/L (5-15); Aspartate Amino Transferase 29 U/L (14-36); Blood Urea Nitrogen 27 mg/dl (7-17); Carbon Dioxide 24 mmol/L (22.0-30.0); Creatinine Clearance Estimated 29 mL/min (50-200); Creatinine,Serum 1.20 mg/dl (0.52-1.04); Estimated Glomerular Filt Rate 43 ml/min (>60); GFR (African American) 52 ML/MIN (>60)
[2025-10-13 05:38] LABS: Albumin/Globulin Ratio 0.9 (1.1-1.8); Alkaline Phosphatase 118 U/L (38-126); Bilirubin,Total 0.4 mg/dl (0.2-1.3); Calcium 8.9 mg/dl (8.4-10.2); Globulin 3.5 g/dL (1.3-3.2); Glucose 129 mg/dl (74-100); Magnesium 1.9 mg/dl (1.6-2.3); Phosphorous 4.0 mg/dl (2.5-4.5); Total Protein,Serum 6.8 g/dl (6.3-8.2)
--- NOTE | 2025-10-13 06:09 | PC.NURSE ---
Spoke with Pearl at [facility] transfer center. States that patient is still on the wait list for tele bad at facility and once bed becomes available, they will call with bed assignment.
[2025-10-13 06:32] LABS: Troponin I 0.02 ng/ml (0.00-0.034)
[2025-10-13] MEDS: PIPERCILLIN/TAZO 3.375 GM in 0.9 % SODIUM CHLORIDE 50 ML IV (08:55)
[2025-10-13] MEDS: levETIRAcetam 500 MG in 0.9 % SODIUM CHLORIDE 100 ML 210 MG IV ×2 (08:56→20:41)
[2025-10-13 09:52] LABS: Adenovirus,PCR Not Detected (NotDetected); Chlamydophila Pneumoniae, PCR Not Detected (NotDetected); Coronavirus 19, PCR Not Detected (NotDetected); Coronovirus HKU1,PCR Not Detected (NotDetected); Influenza A, PCR Not Detected (NotDetected); Influenza AH1, 2009 Not Detected (NotDetected); Influenza AH1, PCR Not Detected (NotDetected); Influenza AH3,PCR Not Detected (NotDetected); Influenza B, PCR Not Detected (NotDetected); Mycoplasma Pneumoniae, PCR Not Detected (NotDetected); Parainfluenza 1, PCR Not Detected (NotDetected); Parainfluenza 2, PCR Not Detected (NotDetected); Parainfluenza 3, PCR Not Detected (NotDetected); Parainfluenza 4, PCR Not Detected (NotDetected)
[2025-10-13] MEDS: FUROSEMIDE 40MG/4ML VIAL 40 MG IV (11:22)
[2025-10-13] MEDS: POLYETHYLENE GLYCOL 3350 17 GM PACKET PO (11:22)
--- OUTSIDE RECORDS SUMMARY | 2025-10-13 13:26 | XMS_ITS | Encounter Summary ---
Author Organization [employer] ([place], [place], [place], [place], [place]) Address [address] [place] [address] Care Team Providers Care Salesperson Automobiles Name Role Phone Jay Howell MD Primary Care Provider [phone] Encounter Details Date Type Department Care Team (Late st Contact Info) Description 08/29/2020 Transcribed Document [facility] Family Medicine [address] [place] [address] ProviderJessie MD [address] [place] [address] Social History Tobacco Use Types Packs/Day Years Used Date Smoking Tobacco: Never Assessed Comments Unknown Sex and Gender Information Value Date Recorded Sex Assigned at Not on file Legal Sex Female 7:30 PM CDT Gender Identity Not on file Sexual Orientation Not on file documented as of this encounter Miscellaneous Notes * Cerner Conversion Note - Jessie Yuen MD - 08/29/2020 1:02 PM INVESTMENT OFFICER Patient: SKYLER MONTOYA Age: 79 years [...] level of muscle per surgery *Operation RIGHT CONTRACTING ANALYST access - ultrasound guided Aortogram with LEFT lower extremity run-off LEFT PT angioplasty ([id number] Nanocross) LEFT peroneal angioplasty (2.5-3p344nb Nanocross) RIGHT CONTRACTING ANALYST closure (Angioseal) LEFT leg debridement 08/29/20 doing [...] Level 0.70 mg/dL 08/29/2020 02:04 Bun/Creatinine 22.9 DC 08/29/2020 02:04 eGFR >60 mL/min/1.73m2 08/29/2020 02:04 eGFR NonAfrican >60 mL/min/1.73m2 08/29/2020 02:04 Bun/Creatinine 22.9 DC 08/29/2020 07:33 Sodium Level 138 mmol/L 08/29/2020 02:04 Potassium Level 3.3 mmol/L LOW 08/29/2020 02:04 Chloride Level 108 mmol/L 08/29/2020 02:04 Carbon Dioxide Level 23 mmol/L 08/29/2020 02:04 Anion Gap 10 08/29/2020 02:04 Blood Urea Nitrogen 16 mg/dL 08/29/2020 02:04 Glucose Level 108 mg/dL DC 08/29/2020 02:04 Calcium Level 9.1 mg/dL 08/29/2020 02:04 MICRO: ACC: [id number] ORDER: Culture Wound and Stain DATE: 08/26/2020 15:23 SOURCE: Surgical Swab SITE: Leg Lower L Reports Final 08/29/2020 08:29 No growth Pre 08/27/2020 07:14 No growth GS 08/26/2020 18:13 Few White Blood Cells No organisms seen. == ACC: [id number] ORDER: Culture Wound and Stain DATE: 08/25/2020 05:00 SOURCE: Wound SITE: Leg Lower L Reports Final 08/28/2020 08:57 No growth Pre 08/26/2020 06:23 No growth GS 08/25/2020 07:26 No organisms seen. Few White Blood Cells Rare epithelial cells == ACC: [id number] ORDER: Culture AFB and Stain DATE: 08/26/2020 13:56 SOURCE: Surgical Swab SITE: Leg Lower L Reports AFS 08/27/2020 13:07 No Acid Fast Bacilli seen == ACC: [id number] ORDER: Culture Anaerobic DATE: 08/26/2020 13:56 SOURCE: Surgical Swab SITE: Leg Lower L Reports Pre 08/28/2020 07:01 No Anaerobic growth Pre 08/27/2020 07:47 Culture in progress == ACC: [id number] ORDER: Culture Fungus DATE: 08/26/2020 13:56 SOURCE: Surgical Swab SITE: Leg Lower L Reports SINDI 08/26/2020 16:09 No Fungal elements seen == ACC: [id number] ORDER: Culture Blood DATE: 08/25/2020 05:01 SOURCE: Blood SITE: Reports Pre 08/29/2020 06:01 No growth at 4 days. Pre 08/28/2020 06:01 No growth at 3 days. Pre 08/27/2020 06:01 No growth at 2 days. Pre 08/26/2020 06:01 No growth at 1 day. Pre 08/25/2020 23:02 Culture less than 24 Hrs old == ACC: [id number] ORDER: Culture Blood DATE: 08/25/2020 05:01 SOURCE: Blood SITE: Reports Pre 08/29/2020 06:02 No growth at 4 days. Pre 08/28/2020 06:01 No growth at 3 days. Pre 08/27/2020 06:01 No growth at 2 days. Pre 08/26/2020 06:01 No growth at 1 day. Pre 08/25/2020 23:02 Culture less than 24 Hrs old == Radiology Results (Last 48 hours) [id number] -- 08/25/2020 05:53 CT Abdomen WO W [...] discharge Electronically signed by Gayle Finnegan Conversion Motors And Generators Inspector Cerner at 02/04/2023 1:55 PM CDT documented in this encounter Plan of Treatment Not on file documented as of this encounter Visit Diagnoses Not on filedocumented in this encounter Care Teams Salesperson Automobiles Relationship Specialty Start Date End Date Jay Howell MD [address] [place] [phone] PCP - General Emergency Medicine 11/12/23 documented as of this encounter
--- OUTSIDE RECORDS SUMMARY | 2025-10-13 13:26 | XMS_ITS | Encounter Summary ---
Author Organization [employer] ([place], [place], [place], [place], [place]) Address [address] [place] [address] Care Team Providers Care Line Cook Name Role Phone Jay Howell MD Primary Care Provider [phone] Encounter Details Date Type Department Care Team (Late st Contact Info) Description 03/16/2021 Transcribed Document [facility] Family Medicine [address] [place] [address] ProviderJessie MD [address] [place] [address] [phone] Social History Tobacco Use Types Packs/Day Years [...] ALLERGIES: Macrobid and morphine. HOME MEDICATIONS: 1. [place] as needed. 2. Xanax as needed. 3. [...] Chart was reviewed. Time spent, 60 minutes. /[id number] Yasser Zohary, MD YZ/AQ / MCKAY / MODL CC: Dr. Avtar Moeller Electronically signed by [facility], [facility] Conversion Dyslexia Teacher Cerner at 02/04/2023 2:22 PM CDT documented in this encounter Plan of Treatment Not on file documented as of this encounter Visit Diagnoses Not on filedocumented in this encounter Care Teams Line Cook Relationship Specialty Start Date End Date Jay Howell MD [address] [place] [phone] PCP - General Emergency Medicine 11/12/23 documented as of this encounter"
--- OUTSIDE RECORDS SUMMARY | 2025-10-13 13:26 | XMS_ITS | Encounter Summary ---
Author Organization [employer] ([place], [place], [place], [place], [place]) Address [address] [place] [address] Care Team Providers Care Supervisor Machining Name Role Phone Jay Howell MD Primary Care Provider [phone] Encounter Details Date Type Department Care Team (Late st Contact Info) Description 03/16/2021 Transcribed Document [facility] Family Medicine [address] [place] [address] ProviderJessie MD [address] [place], [place] [phone] Social History Tobacco Use Types Packs/Day Years [...] signed by Sivan [facility] Conversion Internet Specialist Cerner at 02/06/2023 12:48 PM CDT documented in this encounter Plan of Treatment Not on file documented as of this encounter Visit Diagnoses Not on filedocumented in this encounter Care Teams Supervisor Machining Relationship Specialty Start Date End Date Jay Howell MD [address] [place] [phone] PCP - General Emergency Medicine 11/12/23 documented as of this encounter
--- OUTSIDE RECORDS SUMMARY | 2025-10-13 13:26 | XMS_ITS | Encounter Summary ---
Author Organization [employer] ([place], [place], [place], [place], [place]) Address [address] [place] [address] Care Team Providers Care Mica Machine Operator Name Role Phone Jay Howell MD Primary Care Provider [phone] Encounter Details Date Type Department Care Team (Late st Contact Info) Description 03/16/2021 Transcribed Document [facility] Family Medicine [address] [place] [address] ProviderJessie MD [address] [place], [place] [phone] Social History Tobacco Use Types Packs/Day Years [...] Ambulatory Legal Guardian : Spouse Support Person/Patient Claims Representative : Yes Support Person/Pt Rep Name : Willard Contact Password : Marvin Support Person/Pt Rep Contact Information : [phone] Want Family/Rep/Phys Notified of Admit : No [...] Obtained From : Patient Primary Language : Algerian Preferred Communication Mode : Verbal Communication Barrier : None Newspaper Vendor Needed : No VALERIA DOAN RN - [...] Level : 46 or > High Risk [place] Fall Interventions : Adequate lighting, Assistive devices [...] Source : Stated Height Entry Format : [place] Height, Feet : 5 ft(Converted to: 152 cm, 60 Inch) Height, Inches : 3 Inch(Converted to: 0 ft 3 Inch, 7.62 cm) Clinical Height : 160.02 cm Weight Source : Standing scale Weight Entry Format : [place] Clinical Dosing Weight : 71.82 kg Weight, Pounds : 158 lb Body Surface Area (BSA) : 1.75 m2 Body Mass Index : 28 kg/m2 (HI) Saffell Body Weight : 52 kg VALERIA DOAN [...] pox/Shingles, Measles, Mumps Tuberculosis Symptoms : None AVLERIA DOAN RN - 03/16/2021 18:52 EDT Influenza [...] VALERIA DOAN RN - 03/16/2021 18:52 EDT [place] Suicide Severity Rating Scale (C-SSRS) CSSRS Past [...] filedocumented in this encounter Care Teams Mica Machine Operator Relationship Specialty Start Date End Date Jay Howell MD [address] [place] [phone] PCP - General Emergency Medicine 11/12/23 documented as of this encounter
--- OUTSIDE RECORDS SUMMARY | 2025-10-13 13:26 | XMS_ITS | Encounter Summary ---
Author Organization [employer] ([place], [place], [place], [place], [place]) Address [address] [place] [address] Care Team Providers Care Train Braker Name Role Phone Jay Howell MD Primary Care Provider [phone] Encounter Details Date Type Department Care Team (Late st Contact Info) Description 08/29/2020 Transcribed Document [facility] [place] [address] [place] [address] ProviderJessie MD [address] [place] [address] [phone] Social History Tobacco Use Types Packs/Day Years Used Date Smoking Tobacco: Never Assessed Comments Unknown Sex and Gender Information Value Date Recorded Sex Assigned at Not on file Legal Sex Female 7:30 PM CDT Gender Identity Not on file Sexual Orientation Not on file documented as of this encounter Miscellaneous Notes * Cerner Conversion Note - Jessie Yuen MD - 08/29/2020 8:24 AM HEMATOLOGY SPECIALIST Patient: SKYLER MONTOYA Age: 79 years Sex: Female : 1940 Associated Diagnoses: None Author: SLICK BRADLEY, [facility] Ms. Montoya is 79 yo female admitted [...] on filedocumented in this encounter Care Teams Train Braker Relationship Specialty Start Date End Date Jay Howell MD [address] [place] [phone] PCP - General Emergency Medicine 11/12/23 documented as of this encounter
--- OUTSIDE RECORDS SUMMARY | 2025-10-13 13:26 | XMS_ITS | Encounter Summary ---
Author Organization [employer] ([place], [place], [place], [place], [place]) Address [address] [place] [address] Care Team Providers Care Rim Fire Priming Tool Setter Name Role Phone Jay Howell MD Primary Care Provider [phone] Encounter Details Date Type Department Care Team (Late st Contact Info) Description 08/25/2020 Transcribed Document [facility] Family Medicine [address] [place] [address] ProviderJessie MD [address] [place] [address] [phone] Social History Tobacco Use Types Packs/Day Years Used Date Smoking Tobacco: Never Assessed Comments Unknown Sex and Gender Information Value Date Recorded Sex Assigned at Not on file Legal Sex Female 7:30 PM CDT Gender Identity Not on file Sexual Orientation Not on file documented as of this encounter Miscellaneous Notes * Cerner Conversion Note - Jessie ProviderMD - 08/25/2020 4:33 AM PLATE SHEAR OPERATOR ED Assessment Entered On: 08/25/2020 5:16 EST Performed On: 08/25/2020 5:12 EST by Yajaira Magallon, stamp mounter Quick Look Assessment Level of Consciousness : Alert, Awake Affect/Behavior : Appropriate, Calm, Cooperative Orientation : Oriented x 4 Skin Temperature : Warm Skin Description : Normal for ethnicity Yajaira Magallon Rn - 08/25/2020 5:12 EST ED General-Functional Assess Information Obtained From : Patient Preferred Communication Mode : Verbal Communication Barrier : None Primary Language : Malawian Any Spiritual/Cultural Needs or Requests : No [...] Rn - 08/25/2020 5:12 EST] ) Yajaira Magallno Rn - 08/25/2020 5:12 EST Respiratory Respiratory [...] ED Neurologic Assessment WDL : WDL Yajaira aMgallon Rn - 08/25/2020 5:12 EST Electronically signed by [facility], [facility] Conversion Director Of Scientific Research Cerner at 02/04/2023 2:02 PM CDT documented in this encounter Plan of Treatment Not on file documented as of this encounter Visit Diagnoses Not on filedocumented in this encounter Care Teams Rim Fire Priming Tool Setter Relationship Specialty Start Date End Date Jay Howell MD [address] [place] [phone] PCP - General Emergency Medicine 11/12/23 documented as of this encounter
--- OUTSIDE RECORDS SUMMARY | 2025-10-13 13:26 | XMS_ITS | Encounter Summary ---
Author Organization [employer] ([place], [place], [place], [place], [place]) Address [address] [place] [address] Care Team Providers Care Bilingual Elementary School Teacher Name Role Phone Jay Howell MD Primary Care Provider [phone] Encounter Details Date Type Department Care Team (Late st Contact Info) Description 08/29/[address] [facility] Family Medicine [address] [place] [address] ProviderJessie MD [address] [place] [address] [phone] Social History Tobacco Use Types Packs/Day Years Used Date Smoking Tobacco: Never Assessed Comments Unknown Sex and Gender Information Value Date Recorded Sex Assigned at Not on file Legal Sex Female 7:30 PM CDT Gender Identity Not on file Sexual Orientation Not on file documented as of this encounter Miscellaneous Notes * Cerner Conversion Note - Jessie ProviderMD - 08/29/2020 2:00 AM ECONOMIC ANALYSIS DIRECTOR Senior Genetic Counselor Details Entered On: 08/29/2020 6:08 EST Performed [...] 08/29/2020 6:07 EST Electronically signed by Sivan [facility] Conversion Casino Worker Cerner at 02/04/2023 1:58 PM CDT documented in this encounter Plan of Treatment Not on file documented as of this encounter Visit Diagnoses Not on filedocumented in this encounter Care Teams Bilingual Elementary School Teacher Relationship Specialty Start Date End Date Jay Howell MD [address] [place] [phone] PCP - General Emergency Medicine 11/12/23 documented as of this encounter
--- OUTSIDE RECORDS SUMMARY | 2025-10-13 13:26 | XMS_ITS | Encounter Summary ---
Author Organization [employer] ([place], [place], [place], [place], [place]) Address [address] [place] [address] Care Team Providers Care Engagement Lead Name Role Phone Jay Howell MD Primary Care Provider [phone] Encounter Details Date Type Department Care Team (Late st Contact Info) Description 08/30/2020 Transcribed Document [facility] [place] [address] [place] [address] ProviderJessie MD [address] [place] [address] Social History Tobacco Use Types Packs/Day Years Used Date Smoking Tobacco: Never Assessed Comments Unknown Sex and Gender Information Value Date Recorded Sex Assigned at Not on file Legal Sex Female 7:30 PM CDT Gender Identity Not on file Sexual Orientation Not on file documented as of this encounter Miscellaneous Notes * Cerner Conversion Note - Jessie Yuen MD - 08/30/2020 8:14 AM SURGICAL SERVICES TECH Patient: SKYLER MONTOYA Age: 79 years Sex: [...] mg, 6 mL, 112 mL/Hr, IV Piggyback, [id number] DuoNeb 0.5 mg-2.5 mg/3 mL inhalation solution: [...] Tab, Oral, Daily, 30 Tab, 0 Refill(s) [place] 7.5 mg-325 mg oral tablet: 1 Tab, [...] mL 300 mg 6 mL, IV Piggyback, G37IExt dorzolamide 2% ophth soln 10 mL 1 [...] Confirmed Coronary artery disease / SNOMED CT 3014106382 / Confirmed Stented coronary artery / SNOMED CT 0504795161 / Confirmed High blood pressure / SNOMED CT 13188126 / Confirmed Hyperlipidemia / SNOMED CT 98902869 / Confirmed COPD / SNOMED CT 54513836 / Confirmed GERD - Gastro-esophageal reflux disease / SNOMED CT 5076083252 / Confirmed Multiple renal cysts / SNOMED CT 599292668 / Confirmed Arthritis / SNOMED CT 9307164 / Confirmed Diabetes mellitus / SNOMED CT 312865398 / Confirmed Emphysema / SNOMED CT 107253871 / Confirmed Apnea, sleep / SNOMED CT 028722030 / Confirmed Hx of pulmonary embolus / SNOMED CT 295959236 / Confirmed Chronic anticoagulation / SNOMED CT 059536849 / Confirmed Atrial fibrillation with RVR / SNOMED CT 3189261310 / Confirmed Chest pain / SNOMED CT 31462820 / Complaint of History of obstructive sleep apnea / IMO 32143462 / Confirmed, Active Problems (20) Apnea, sleep [...] based on INR Electronically signed by Sivan, [facility] Conversion Civil Rights Investigator Cerner at 02/04/2023 2:10 PM CDT documented in this encounter Plan of Treatment Not on file documented as of this encounter Visit Diagnoses Not on filedocumented in this encounter Care Teams Engagement Lead Relationship Specialty Start Date End Date Jay Howell MD [address] [place] [phone] PCP - General Emergency Medicine 11/12/23 documented as of this encounter
--- OUTSIDE RECORDS SUMMARY | 2025-10-13 13:26 | XMS_ITS | Encounter Summary ---
Author Organization [employer] ([place], [place], [place], [place], [place]) Address [address] [place] [address] Care Team Providers Care Transportation Services Representative Name Role Phone Jay Howell MD Primary Care Provider [phone] Encounter Details Date Type Department Care Team (Late st Contact Info) Description 08/29/2020 Transcribed Document [facility] [address] [place] [address] ProviderJessie MD [address] [place] [address] [phone] Social History Tobacco Use Types Packs/Day Years Used Date Smoking Tobacco: Never Assessed Comments Unknown Sex and Gender Information Value Date Recorded Sex Assigned at Not on file Legal Sex Female 7:30 PM CDT Gender Identity Not on file Sexual Orientation Not on file documented as of this encounter Miscellaneous Notes * Cerner Conversion Note - Jessie ProviderMD - 08/29/2020 2:41 PM PLATING TECHNICIAN On Going Discharge Planning Entered On: 08/29/2020 14:44 EST Performed On: 08/29/2020 14:41 EST by KAVITA PELLETIER RN-Senior Net Software DeveloperMedical Records Director Progress Note Discharge Arrangements : Patient Post-Acute [...] Meeting Medical Necessity : Yes KAVITA PELLETIER RN-Senior Net Software Developer - 08/29/2020 14:41 EST Narrative Progress Note Narrative Progress Note : No DC today--INR-1.5. Hep gtt started to bridge Coumadin. NPWT for home obtained from [employer] and has been delivered to pt's room. [...] will obtain prior to dc. List of COMMUNITY HEALTH OUTREACH WORKER's for [place] given to pt. She will choose and inform CM. Coumadin restarted today. CM will continue to follow. KAVITA PELLETIER RN-Senior Net Software Developer - 08/28/20 15:37:20 Pt is s/p LLE [...] past after her [facility] and went to [facility] prior to home with HH. She is agreeable to look at list of COMMUNITY HEALTH OUTREACH WORKER to make an informed decision based on quality and resource use information. Cx's are pending to determine need for IV abx at home. Likely dc in a few days. CM will continue to follow. KAVITA PELLETIER RN-Senior Net Software Developer - 08/27/20 15:14:36 KAVITA PELLETIER RN-Senior Net Software Developer - 08/29/2020 14:41 EST Electronically signed by Sivan [facility] Conversion Aircraft Maintenance Supervisor Cerner at 02/04/2023 2:06 PM CDT documented in this encounter Plan of Treatment Not on file documented as of this encounter Visit Diagnoses Not on filedocumented in this encounter Care Teams Transportation Services Representative Relationship Specialty Start Date End Date Jay Howell MD [address] [place] [phone] PCP - General Emergency Medicine 11/12/23 documented as of this encounter
--- OUTSIDE RECORDS SUMMARY | 2025-10-13 13:26 | XMS_ITS | Encounter Summary ---
Author Organization [employer] ([place], [place], [place], [place], [place]) Address [address] [place] [address] Care Team Providers Care Vocational Services Specialist Name Role Phone Jay Howell MD Primary Care Provider [phone] Encounter Details Date Type Department Care Team (Late st Contact Info) Description 08/25/2020 Transcribed Document [facility] [place] [address] [place] [address] ProviderJessie MD [address] [place] [address] 289471 Social History Tobacco Use Types Packs/Day Years Used Date Smoking Tobacco: Never Assessed Comments Unknown Sex and Gender Information Value Date Recorded Sex Assigned at Not on file Legal Sex Female 7:30 PM CDT Gender Identity Not on file Sexual Orientation Not on file documented as of this encounter Miscellaneous Notes * Cerner Conversion Note - Jessie ProviderMD - 08/25/2020 5:02 AM JUNK REMOVAL SPECIALIST Pain Assessment Entered On: 08/25/2020 5:48 EST [...] on filedocumented in this encounter Care Teams Vocational Services Specialist Relationship Specialty Start Date End Date Jay Howell MD [address] [place] [phone] PCP - General Emergency Medicine 11/12/23 documented as of this encounter
--- OUTSIDE RECORDS SUMMARY | 2025-10-13 13:26 | XMS_ITS | Clinical Summary ---
Author Organization [facility] Address [address] [place] [address], [address] [place] [address] Care Team Providers Care Rib Builder Name Role Phone Jay Howell MD [...] Description 09/16/2025 2:00 PM EST Office Visit [facility] Orthopedic [facility] Sports Medicine [address] [address] Shagufta Cueva PA-C Nontraumatic complete tear of [...] Description 11/21/2025 4:00 PM EST Office Visit [facility] Orthopaedic [place], [place] [address] Luis Upton MD [address] [place] [address] F/U L SHOULDER Health Maintenance Due Date [...] ID:Not on file Type:Not on file Address: [address] Care Teams Rib Builder Relationship Specialty Start Date End Date Jay Howell MD [address] [phone] PCP - General Emergency Medicine 03/06/25
--- OUTSIDE RECORDS SUMMARY | 2025-10-13 13:26 | XMS_ITS | Encounter Summary ---
Author Organization [employer] ([place], [place], [place], [place], [place]) Address [address] [place] [address] Care Team Providers Care Broker Agricultural Produce Name Role Phone Jay Howell MD Primary Care Provider [phone] Encounter Details Date Type Department Care Team (Late st Contact Info) Description 03/17/2021 Transcribed Document [facility] [place] Family Medicine [address] [place] [address] ProviderJessie MD [address] [place], [place] [phone] Social History Tobacco Use Types Packs/Day Years [...] on filedocumented in this encounter Care Teams Broker Agricultural Produce Relationship Specialty Start Date End Date Jay Howell MD [address] [place] [phone] PCP - General Emergency Medicine 11/12/23 documented as of this encounter
--- OUTSIDE RECORDS SUMMARY | 2025-10-13 13:26 | XMS_ITS | Encounter Summary ---
Author Organization [employer] ([place], [place], [place], [place], [place]) Address [address] [place] [address] Care Team Providers Care Supervisor Paper Coating Name Role Phone Jay Howell MD Primary Care Provider [phone] Encounter Details Date Type Department Care Team (Late st Contact Info) Description 03/17/2021 Transcribed Document [facility] [place] Family Medicine [address] [place] [address] ProviderJessie MD [address] [place], [place] 118511 Social History Tobacco Use Types Packs/Day Years [...] - 03/17/2021 12:33 EDT Electronically signed by [facility], [facility] Conversion Rn Home Health Cerner at 02/04/2023 1:58 PM CDT documented in this encounter Plan of Treatment Not on file documented as of this encounter Visit Diagnoses Not on filedocumented in this encounter Care Teams Supervisor Paper Coating Relationship Specialty Start Date End Date Jay Howell MD [address] [place] [phone] PCP - General Emergency Medicine 11/12/23 documented as of this encounter
--- OUTSIDE RECORDS SUMMARY | 2025-10-13 13:26 | XMS_ITS | Encounter Summary ---
Author Organization [employer] ([place], [place], [place], [place], [place]) Address [address] [place] [address] Care Team Providers Care Slot Floor Attendant Name Role Phone Jay Howell MD Primary Care Provider [phone] Encounter Details Date Type Department Care Team (Late st Contact Info) Description 08/25/2020 Transcribed Document [facility] [place] [address] [place] [address] ProviderJessie MD [address] [place] [address] [phone] Social History Tobacco Use Types Packs/Day Years Used Date Smoking Tobacco: Never Assessed Comments Unknown Sex and Gender Information Value Date Recorded Sex Assigned at Not on file Legal Sex Female 7:30 PM CDT Gender Identity Not on file Sexual Orientation Not on file documented as of this encounter Miscellaneous Notes * Cerner Conversion Note - Jessie ProviderMD - 08/25/2020 4:33 AM EMISSIONS TECHNICIAN ED Triage Entered On: 08/25/2020 4:45 [...] 04:45:44 EST) Problems(Active) Apnea, sleep (SNOMED CT :009512872 ) Name of Problem: Apnea, sleep ; Recorder: JUAN LUIS GIL RN; Confirmation: Confirmed ; Classification: Medical ; Code: 568264986 ; Contributor System: PowerChart ; Last Updated: 11/12/2014 10:12 EST ; Life Cycle Date: 11/12/2014 ; Life Cycle Status: Active ; Vocabulary: SNOMED CT Arthritis (SNOMED CT :9773049 ) Name of Problem: Arthritis ; Recorder: KENYON CHAMBERS RN; Confirmation: Confirmed ; Classification: Medical ; Code: 5820344 ; Contributor System: PowerChart ; Last Updated: 04/10/2016 8:04 EDT ; Life Cycle Date: 08/13/2013 ; Life Cycle Status: Active ; Vocabulary: SNOMED CT Atrial fibrillation with RVR (SNOMED CT :7643282331 ) Name of Problem: Atrial fibrillation with RVR ; Recorder: SANG RICO APRN; Confirmation: Confirmed ; Classification: Medical ; Code: 2831809177 ; Contributor System: PowerChart ; Last Updated: 04/10/2016 8:05 EDT ; Life Cycle Date: 04/10/2016 ; Life Cycle Status: Active ; Responsible Provider: SANG RICO APRN; Vocabulary: SNOMED CT Blood clot (SNOMED CT :983509728 ) Name of Problem: Blood clot ; Recorder: KENYON CHAMBERS RN; Confirmation: Confirmed ; Classification: Patient Stated ; Code: 196355832 ; Contributor System: PowerChart ; Last Updated: [...] Vocabulary: Patient Care Chest pain (SNOMED CT :06091347 ) Name of Problem: Chest pain ; Recorder: SANG RICO APRN; Confirmation: Complaint of ; Classification: Medical ; Code: 01914928 ; Contributor System: PowerChart ; Last Updated: 04/10/2016 8:05 EDT ; Life Cycle Status: Active ; Responsible Provider: SANG RICO APRN; Vocabulary: SNOMED CT Chronic anticoagulation (SNOMED CT :315895897 ) Name of Problem: Chronic anticoagulation ; Recorder: SANG RICO APRN; Confirmation: Confirmed ; Classification: Medical ; Code: 798131092 ; Contributor System: PowerChart ; Last Updated: 04/10/2016 8:05 EDT ; Life Cycle Date: 04/10/2016 ; Life Cycle Status: Active ; Responsible Provider: SANG RICO APRN; Vocabulary: SNOMED CT Clotting disorder (SNOMED CT :985751671 ) Name of Problem: Clotting disorder ; Recorder: KENYON CHAMBERS RN; Confirmation: Confirmed ; Classification: Patient Stated ; Code: 091824104 ; Contributor System: PowerChart ; Last Updated: 03/28/2014 19:29 EDT ; Life Cycle Date: 08/13/2013 ; Life Cycle Status: Active ; Vocabulary: SNOMED CT COPD (SNOMED CT :42608234 ) Name of Problem: COPD ; Recorder: KENYON CHAMBERS RN; Confirmation: Confirmed ; Classification: Medical ; Code: 32598000 ; Contributor System: PowerChart ; Last Updated: 04/10/2016 8:03 EDT ; Life Cycle Date: 08/13/2013 ; Life Cycle Status: Active ; Vocabulary: SNOMED CT Coronary artery disease (SNOMED CT :5947244023 ) Name of Problem: Coronary artery disease ; Recorder: KENYON CHAMBERS RN; Confirmation: Confirmed ; Classification: Medical ; Code: 9650788776 ; Contributor System: PowerChart ; Last Updated: 04/10/2016 8:03 EDT ; Life Cycle Date: 08/13/2013 ; Life Cycle Status: Active ; Vocabulary: SNOMED CT Diabetes mellitus (SNOMED CT :718803378 ) Name of Problem: Diabetes mellitus ; Recorder: KENYON CHAMBERS RN; Confirmation: Confirmed ; Classification: Medical ; Code: 131434521 ; Contributor System: PowerChart ; Last Updated: 04/10/2016 8:04 EDT ; Life Cycle Date: 08/13/2013 ; Life Cycle Status: Active ; Vocabulary: SNOMED CT Emphysema (SNOMED CT :742108163 ) Name of Problem: Emphysema ; Recorder: JUAN LUIS GIL RN; Confirmation: Confirmed ; Classification: Medical ; Code: 905685986 ; Contributor System: PowerChart ; Last Updated: 11/12/2014 10:11 EST ; Life Cycle Date: 11/12/2014 ; Life Cycle Status: Active ; Vocabulary: SNOMED CT GERD - Gastro-esophageal reflux disease (SNOMED CT :3747620851 ) Name of Problem: GERD - Gastro-esophageal reflux disease ; Recorder: KENYON CHAMBERS RN; Confirmation: Confirmed ; Classification: Medical ; Code: 7847294830 ; Contributor System: PowerChart ; Last Updated: [...] Patient Care High blood pressure (SNOMED CT :11255681 ) Name of Problem: High blood pressure ; Recorder: KENYON CHAMBERS RN; Confirmation: Confirmed ; Classification: Medical ; Code: 12417028 ; Contributor System: PowerChart ; Last Updated: 04/10/2016 8:03 EDT ; Life Cycle Date: 08/13/2013 ; Life Cycle Status: Active ; Vocabulary: SNOMED CT History of obstructive sleep apnea (IMO :82100447 ) Name of Problem: History of obstructive sleep apnea ; Recorder: SYSTEM, SYSTEM; Confirmation: Confirmed ; Classification: Medical ; Code: 91929179 ; Last Updated: 12/20/2018 12:01 EST ; Life Cycle Date: 12/20/2018 ; Life Cycle Status: Active ; Vocabulary: IMO Hx of pulmonary embolus (SNOMED CT :593091312 ) Name of Problem: Hx of pulmonary embolus ; Recorder: SANG RICO APRN; Confirmation: Confirmed ; Classification: Medical ; Code: 970597750 ; Contributor System: PowerChart ; Last Updated: 04/10/2016 8:05 EDT ; Life Cycle Date: 04/10/2016 ; Life Cycle Status: Active ; Responsible Provider: SANG RIOC APRN; Vocabulary: SNOMED CT Hyperlipidemia (SNOMED CT :58453307 ) Name of Problem: Hyperlipidemia ; Recorder: KENYON CHAMBERS RN; Confirmation: Confirmed ; Classification: Medical ; Code: 58290500 ; Contributor System: PowerChart ; Last Updated: 04/10/2016 8:03 EDT ; Life Cycle Date: 08/13/2013 ; Life Cycle Status: Active ; Vocabulary: SNOMED CT Multiple renal cysts (SNOMED CT :917488404 ) Name of Problem: Multiple renal cysts ; Recorder: KENYON CHAMBERS RN; Confirmation: Confirmed ; Classification: Medical ; Code: 895594244 ; Contributor System: PowerChart ; Last Updated: 04/10/2016 8:04 EDT ; Life Cycle Date: 08/13/2013 ; Life Cycle Status: Active ; Vocabulary: SNOMED CT Stented coronary artery (SNOMED CT :7731225562 ) Name of Problem: Stented coronary artery ; Recorder: KENYON CHAMBERS RN; Confirmation: Confirmed ; Classification: Medical ; Code: 8433162563 ; Contributor System: PowerChart ; Last Updated: 04/10/2016 8:03 EDT ; Life Cycle Date: 08/13/2013 ; Life Cycle Status: Active ; Vocabulary: SNOMED CT UTI - Urinary tract infection (SNOMED CT :7926808311 ) Name of Problem: UTI - Urinary tract infection ; Recorder: KENYON CHAMBERS RN; Confirmation: Confirmed ; Classification: Medical ; Code: 3126938977 ; Contributor System: PowerChart ; Last Updated: 04/10/2016 8:04 EDT ; Life Cycle Date: 08/13/2013 ; Life Cycle Status: Active ; Vocabulary: SNOMED CT Diagnoses(Active) Medical screening exam Date: 08/25/2020 ; Diagnosis Type: Reason For Visit ; Confirmation: Complaint of ; Clinical Dx: Medical screening exam ; Classification: Medical ; Clinical Service: Non-Specified ; Code: PNED ; Probability: 0 ; Diagnosis Code: [id number] ED Height and Weight Height Source : Stated Height Entry Format : [place] Height, Feet : 5 ft(Converted to: 152 cm, 60 Inch) Height, Inches : 3 Inch(Converted to: 0 ft 3 Inch, 7.62 cm) Clinical Height : 160.02 cm Weight Source, ED : Critical estimated dosing weight Weight Entry Format : [place] Weight, Pounds : 152 lb Clinical Dosing Weight : 69.09 kg Body Surface Area (BSA) : 1.72 m2 Body Mass Index : 27 kg/m2 (HI) Benedict Body Weight (IBW) : 52.02 kg Deisi Vasquez RN - 08/25/2020 4:41 EST Electronically signed by [facility], [facility] Conversion Network Security Engineer Cerner at 02/04/2023 1:59 PM CDT documented in this encounter Plan of Treatment Not on file documented as of this encounter Visit Diagnoses Not on filedocumented in this encounter Care Teams Slot Floor Attendant Relationship Specialty Start Date End Date Jay Howell MD [address] [place] [phone] PCP - General Emergency Medicine 11/12/23 documented as of this encounter
--- OUTSIDE RECORDS SUMMARY | 2025-10-13 13:26 | XMS_ITS | Encounter Summary ---
Author Organization [employer] ([place], [place], [place], [place], [place]) Address [address] [place] [address] Care Team Providers Care Associate Dean Of Women Name Role Phone Jay Howell MD Primary Care Provider [phone] Encounter Details Date Type Department Care Team (Late st Contact Info) Description 08/25/2020 Transcribed Document [facility] [place] [address] [place] [address] ProviderJessie MD [address] [place], [place] 5[address]371 Social History Tobacco Use Types Packs/Day Years Used Date Smoking Tobacco: Never Assessed Comments Unknown Sex and Gender Information Value Date Recorded Sex Assigned at Not on file Legal Sex Female 7:30 PM CDT Gender Identity Not on file Sexual Orientation Not on file documented as of this encounter Miscellaneous Notes * Cerner Conversion Note - Jessie ProviderMD - 08/25/2020 4:33 AM MODEL AND MOLD MAKER [place] Suicide Severity Rating Scale (C-SSRS) Entered On: 08/25/2020 5:10 EST Performed On: 08/25/2020 5:10 EST by Yajaira Magallon Rn [place] Suicide Severity Rating Scale (C-SSRS) CSSRS Past Month Wish to be : No CSSRS Past Month Suicidal Thoughts : No CSSRS Lifetime Suicide Behavior : No Suicide Severity Rating Score : 0 Suicide Severity Rating : No Additional Care Required at this time Yajaira Magallon Rn - 08/25/2020 5:10 EST Electronically signed by [facility] Conversion Rug Cutter Helper Cerner at 02/04/2023 1:59 PM CDT documented in this encounter Plan of Treatment Not on file documented as of this encounter Visit Diagnoses Not on filedocumented in this encounter Care Teams Associate Dean Of Women Relationship Specialty Start Date End Date Jay Howell MD [address] [place] [phone] PCP - General Emergency Medicine 11/12/23 documented as of this encounter
--- OUTSIDE RECORDS SUMMARY | 2025-10-13 13:26 | XMS_ITS | Encounter Summary ---
Author Organization [employer] ([place], [place], [place], [place], [place]) Address [address] [place] [address] Care Team Providers Care Crusher And Blender Operator Name Role Phone Jay Howell MD Primary Care Provider [phone] Encounter Details Date Type Department Care Team (Late st Contact Info) Description 08/30/2020 Transcribed Document [facility] [place] [address] [place] [address] ProviderJessie MD [address] [place] [address] Social History Tobacco Use Types Packs/Day Years Used Date Smoking Tobacco: Never Assessed Comments Unknown Sex and Gender Information Value Date Recorded Sex Assigned at Not on file Legal Sex Female 7:30 PM CDT Gender Identity Not on file Sexual Orientation Not on file documented as of this encounter Miscellaneous Notes * Cerner Conversion Note - Jessie Yuen MD - 08/30/2020 10:43 AM ARMORED CABLE MACHINE OPERATOR Patient: SKYLER MONTOYA Age: 79 [...] level of muscle per surgery *Operation RIGHT SHUTTLE FITTING SUPERVISOR access - ultrasound guided Aortogram with LEFT lower extremity run-off LEFT PT angioplasty (2.5-7l651kf [employer]) LEFT peroneal angioplasty (2.5-6e221gb [employer]) RIGHT SHUTTLE FITTING SUPERVISOR closure (Angioseal) LEFT leg debridement 08/30/20 doing [...] Level 0.70 mg/dL 08/29/2020 02:04 Bun/Creatinine 22.9 NJ 08/29/2020 02:04 eGFR >60 mL/min/1.73m2 08/29/2020 02:04 eGFR NonAfrican >60 mL/min/1.73m2 08/29/2020 02:04 Bun/Creatinine 22.9 NJ 08/29/2020 07:33 Sodium Level 138 mmol/L 08/29/2020 02:04 Potassium Level 3.8 mmol/L 08/30/2020 04:13 Chloride Level 108 mmol/L 08/29/2020 02:04 Carbon Dioxide Level 23 mmol/L 08/29/2020 02:04 Anion Gap 10 08/29/2020 02:04 Blood Urea Nitrogen 16 mg/dL 08/29/2020 02:04 Glucose Level 108 mg/dL NJ 08/29/2020 02:04 Calcium Level 9.1 mg/dL 08/29/2020 02:04 MICRO: ACC: [id number] ORDER: Culture Blood DATE: 08/25/2020 05:01 SOURCE: Blood SITE: Reports Final 08/30/2020 06:01 No growth at 5 days. Pre 08/29/2020 06:01 No growth at 4 days. Pre 08/28/2020 06:01 No growth at 3 days. Pre 08/27/2020 06:01 No growth at 2 days. Pre 08/26/2020 06:01 No growth at 1 day. Pre 08/25/2020 23:02 Culture less than 24 Hrs old == ACC: [id number] ORDER: Culture Blood DATE: 08/25/2020 05:01 SOURCE: Blood SITE: Reports Final 08/30/2020 06:01 No growth at 5 days. Pre 08/29/2020 06:02 No growth at 4 days. Pre 08/28/2020 06:01 No growth at 3 days. Pre 08/27/2020 06:01 No growth at 2 days. Pre 08/26/2020 06:01 No growth at 1 day. Pre 08/25/2020 23:02 Culture less than 24 Hrs old == ACC: [id number] ORDER: Culture Wound and Stain DATE: 08/26/2020 15:23 SOURCE: Surgical Swab SITE: Leg Lower L Reports Final 08/29/2020 08:29 No growth Pre 08/27/2020 07:14 No growth GS 08/26/2020 18:13 Few White Blood Cells No organisms seen. == ACC: [id number] ORDER: Culture Wound and Stain DATE: 08/25/2020 05:00 SOURCE: Wound SITE: Leg Lower L Reports Final 08/28/2020 08:57 No growth Pre 08/26/2020 06:23 No growth GS 08/25/2020 07:26 No organisms seen. Few White Blood Cells Rare epithelial cells == ACC: [id number] ORDER: Culture AFB and Stain DATE: 08/26/2020 13:56 SOURCE: Surgical Swab SITE: Leg Lower L Reports AFS 08/27/2020 13:07 No Acid Fast Bacilli seen == ACC: [id number] ORDER: Culture Anaerobic DATE: 08/26/2020 13:56 SOURCE: Surgical Swab SITE: Leg Lower L Reports Pre 08/28/2020 07:01 No Anaerobic growth Pre 08/27/2020 07:47 Culture in progress == ACC: [id number] ORDER: Culture Fungus DATE: 08/26/2020 13:56 SOURCE: [...] filedocumented in this encounter Care Teams Crusher And Blender Operator Relationship Specialty Start Date End Date Jay Howell MD [address] [place] [phone] PCP - General Emergency Medicine 11/12/23 documented as of this encounter
--- OUTSIDE RECORDS SUMMARY | 2025-10-13 13:26 | XMS_ITS | Clinical Summary ---
Author Organization [employer] ([place], [place], [place], [place], [place]) Address [address] [place] [address] Care Team Providers Care Hand Sander Name Role Phone Jay Howell MD Primary [...] Date Kennedy rded Speak language other than Ethiopian at home Not on file 10/30/2023 Want [...] history exists Insurance MEDICARE PART A B [facility] [place] [id number] Advance Directives For more information, please contact: [phone] * Full Code (Latest Code Status on File) Date Activated Date Inactivated Comments 11/25/2022 10:41 AM 11/26/2022 5:33 PM * Full Code Date Activated Date Inactivated Comments 11/25/2022 8:11 AM 11/25/2022 10:41 AM -Attempt Resu scitation if person has no pulse and is not breathing. -If no pulse or not breathing attempt CPR/CODE. -Call Rapid Response if patient is in distress. Care Teams Hand Sander Relationship Specialty Start Date End Date Jay Howell MD [address] [place] [phone] PCP - General Emergency Medicine 11/12/23
--- OUTSIDE RECORDS SUMMARY | 2025-10-13 13:26 | XMS_ITS | Encounter Summary ---
Author Organization [employer] ([place], [place], [place], [place], [place]) Address [address] [place] [address] Care Team Providers Care Certified Emergency Vehicle Technician Name Role Phone Jay Howell MD Primary Care Provider [phone] Encounter Details Date Type Department Care Team (Late st Contact Info) Description 08/25/2020 Transcribed Document [facility] [place] Family Medicine [address] [place] [address] ProviderJessie MD [address] [place] [address] Social History Tobacco Use Types Packs/Day Years Used Date Smoking Tobacco: Never Assessed Comments Unknown Sex and Gender Information Value Date Recorded Sex Assigned at Not on file Legal Sex Female 7:30 PM CDT Gender Identity Not on file Sexual Orientation Not on file documented as of this encounter Miscellaneous Notes * Cerner Conversion Note - Jessie Yuen MD - 08/25/2020 7:11 AM SVP MONETIZATION Pain Assessment Entered On: 08/26/2020 1:56 EST [...] filedocumented in this encounter Care Teams Certified Emergency Vehicle Technician Relationship Specialty Start Date End Date Jay Howell MD [address] [place] [phone] PCP - General Emergency Medicine 11/12/23 documented as of this encounter
--- OUTSIDE RECORDS SUMMARY | 2025-10-13 13:26 | XMS_ITS | Encounter Summary ---
Author Organization [employer] ([place], [place], [place], [place], [place]) Address [address] [place] [address] Care Team Providers Care Supervisor Electronic Coils Name Role Phone Jay Howell MD Primary Care Provider [phone] Encounter Details Date Type Department Care Team (Late st Contact Info) Description 08/25/2020 Transcribed Document [facility] [place] [address] [place] [address] ProviderJessie MD [address] [place] [address] Social History Tobacco Use Types Packs/Day Years Used Date Smoking Tobacco: Never Assessed Comments Unknown Sex and Gender Information Value Date Recorded Sex Assigned at Not on file Legal Sex Female 7:30 PM CDT Gender Identity Not on file Sexual Orientation Not on file documented as of this encounter Miscellaneous Notes * Cerner Conversion Note - Jessie Yuen MD - 08/25/2020 5:05 AM SPEECH LANGUAGE PATHOLOGIST ASSISTANT Patient: SKYLER MONTOYA Age: 79 years [...] CHARLEE - EVA WESLEY RN PCI w/ [place] stent to D1 Coronary artery bypass graft ([id number]) in 1992 at 52 Years. femur repair. Appendectomy (171850954). uterine suspension. Hysterectomy (917061210). back surgury. Cholecystectomy (18342295). Hip replacement ([id number]). cataract surgury. . Family history: Cardiomyopathy Child [...] EST Height Source Stated Height Entry Format [place] Height/Length, SOUTH KOREAN (ft) 5 ft Height/Length [place]ORE[place] 3 Inch CLINICALHEIGHT 160.02 cm [place] Body Weight 52.02 kg Weight Source, ED Critical estimated dosing weight Weight Entry Format [place] Weight Swedish lb 152 lb CLINICALWEIGHT 69.09 kg Body [...] Stain: Ordered ED Fall Risk Documented: ED biochemistry technician: Normal Saline 1,000 mL: 75 mL/Hr, IntraVENous [...] Application, Topical, TID, 22 Gram, 0 Refill(s) [place] 7.5 mg-325 mg oral tablet: 1 Tab, [...] % 32.7 % Lymph # 1.98 x10(3)/uL [place] % 10.2 % HI Jennings # 0.62 K/uL Eos % 0.0 % [...] DAVALOS MD-INT . Electronically signed by Sivan [facility] Conversion Mechanical Integrity Specialist Cerner at 02/04/2023 2:03 PM CDT documented in this encounter Plan of Treatment Not on file documented as of this encounter Visit Diagnoses Not on filedocumented in this encounter Care Teams Supervisor Electronic Coils Relationship Specialty Start Date End Date Jay Howell MD [address] [place] [phone] PCP - General Emergency Medicine 11/12/23 documented as of this encounter
--- OUTSIDE RECORDS SUMMARY | 2025-10-13 13:26 | XMS_ITS | Encounter Summary ---
Author Organization [employer] ([place], [place], [place], [place], [place]) Address [address] [place] [address] Care Team Providers Care Graduate Advisor Name Role Phone Jay Howell MD Primary Care Provider [phone] Encounter Details Date Type Department Care Team (Late st Contact Info) Description 08/29/2020 Transcribed Document [facility] [place] [address] [place] [address] ProviderJessie MD [address] [place] [address] [phone] Social History Tobacco Use Types Packs/Day Years Used Date Smoking Tobacco: Never Assessed Comments Unknown Sex and Gender Information Value Date Recorded Sex Assigned at Not on file Legal Sex Female 7:30 PM CDT Gender Identity Not on file Sexual Orientation Not on file documented as of this encounter Miscellaneous Notes * Cerner Conversion Note - Jessie Yuen MD - 08/29/2020 2:44 PM RUBBER GOODS CUTTER FINISHER Final Discharge Planning Entered On: 08/29/2020 14:44 EST Performed On: 08/29/2020 14:44 EST by KAVITA PELLETIER RN-Machine Sprayer Final Discharge Planning Discharge Arrangements : Patient Post-Acute Information Patient Name: SKYLER MONTOYA Gender: Female : 38 Age: 79 Years No Post-Acute Placement(s) Listed No Post-Acute Service(s) Listed No [place] Referral(s) Listed Patient Offered Choice/Affiliations Explained : Yes Important Medicare Message Reviewed With : Patient Important Medicare Message Reviewed D/T : 08/29/2020 9:00 EST KAVITA PELLETIER RN-Machine Sprayer - 08/29/2020 14:44 EST Electronically signed by Interface, [facility] Conversion Luggage Liner Cerner at 02/04/2023 1:55 PM CDT documented in this encounter Plan of Treatment Not on file documented as of this encounter Visit Diagnoses Not on filedocumented in this encounter Care Teams Graduate Advisor Relationship Specialty Start Date End Date Jay Howell MD [address] [place] [phone] PCP - General Emergency Medicine 11/12/23 documented as of this encounter
--- OUTSIDE RECORDS SUMMARY | 2025-10-13 13:26 | XMS_ITS | Encounter Summary ---
Author Organization [employer] ([place], [place], [place], [place], [place]) Address [address] [place] [address] Care Team Providers Care Header Dock Name Role Phone Jay Howell MD Primary Care Provider [phone] Encounter Details Date Type Department Care Team (Late st Contact Info) Description 03/17/2021 Transcribed Document [facility] [place] [address] [place] [address] ProviderJessie MD [address] [place], [place] [phone] Social History Tobacco Use Types Packs/Day Years [...] on filedocumented in this encounter Care Teams Header Dock Relationship Specialty Start Date End Date Jay Howell MD [address] [place] [phone] PCP - General Emergency Medicine 11/12/23 documented as of this encounter
--- OUTSIDE RECORDS SUMMARY | 2025-10-13 13:26 | XMS_ITS | Encounter Summary ---
Author Organization [employer] ([place], [place], [place], [place], [place]) Address [address] [place] [address] Care Team Providers Care Sports Complex Attendant Name Role Phone Jay Howell MD Primary Care Provider [phone] Encounter Details Date Type Department Care Team (Late st Contact Info) Description 08/25/2020 Transcribed Document [facility] [place] Family Medicine [address] [place] [address] ProviderJessie MD [address] [place] [address] Social History Tobacco Use Types Packs/Day Years Used Date Smoking Tobacco: Never Assessed Comments Unknown Sex and Gender Information Value Date Recorded Sex Assigned at Not on file Legal Sex Female 7:30 PM CDT Gender Identity Not on file Sexual Orientation Not on file documented as of this encounter Miscellaneous Notes * Cerner Conversion Note - Jessie Yuen MD - 08/25/2020 10:53 AM ACTUARIAL SCIENCE PROFESSOR DATE OF CONSULTATION: 08/25/2020 INFECTIOUS DISEASE CONSULTATION [...] team following as above. Discussed with them. /[id number] MD VANESSA Campa/NABOR / VANESSA / MODL /[id number] CC: MD David Campa MD Electronically signed by [facility], [facility] Conversion Brim Ironer Hand Cerner at 02/04/2023 2:05 PM CDT documented in this encounter Plan of Treatment Not on file documented as of this encounter Visit Diagnoses Not on filedocumented in this encounter Care Teams Sports Complex Attendant Relationship Specialty Start Date End Date Jay Howell MD [address] [place] [phone] PCP - General Emergency Medicine 11/12/23 documented as of this encounter
--- OUTSIDE RECORDS SUMMARY | 2025-10-13 13:26 | XMS_ITS | Encounter Summary ---
Author Organization [facility] ([place], [place], [place], [place], [place]) Address [address] [place] [address] Care Team Providers Care Dedicated Regional Driver Name Role Phone Jay Howell MD Primary Care Provider [phone] Encounter Details Date Type Department Care Team (Late st Contact Info) Description 03/16/2021 Transcribed Document [facility] [place] [address] [place] [address] ProviderJessie MD [address] [place], [place] [address] Social History Tobacco Use Types Packs/Day Years [...] on filedocumented in this encounter Care Teams Dedicated Regional Driver Relationship Specialty Start Date End Date Jay Howell MD [address] [place] [phone] PCP - General Emergency Medicine 11/12/23 documented as of this encounter
--- OUTSIDE RECORDS SUMMARY | 2025-10-13 13:26 | XMS_ITS | Encounter Summary ---
Author Organization [employer] ([place], [place], [place], [place], [place]) Address [address] [place] [address] Care Team Providers Care Healthcare Social Worker Name Role Phone Jay Howell MD Primary Care Provider [phone] Encounter Details Date Type Department Care Team (Late st Contact Info) Description 03/17/2021 Transcribed Document [facility] Cardiology [address] [place], [place] [phone] Jorje Bení[place] [address] [place] [address] [address] [place] [address] Social History Tobacco Use Types Packs/Day Years [...] None Author: JORJE BENÍTEZ MD-CAR Basic Information Instructor Dramatic Arts: Dr. Adry Dumas Chief Complaint Syncope History of Present Illness The patient is an unfortunate 80-year-old female with a known history atherosclerotic cardiovascular disease???status post coronary artery bypass grafting as well as multiple PCI's most recently 2018, hypertension, dyslipidemia, paroxysmal/persistent atrial fibrillation on chronic warfarin, history of carotid disease, anxiety, diabetes mellitus type 2, COPD, and DVT/pulmonary embolism who presented to [facility] after suffering a several episode [...] Vitamins oral tablet 1 Tab, Oral, Daily Abrams 7.5 mg-325 mg oral tablet 1 Tab, [...] Bedtime Problem list: All Problems Arthritis / 9585715 / Confirmed Atrial fibrillation with RVR / 0942852381 / Confirmed Blood clot / 409626802 / Confirmed Cataract / Confirmed Chest pain / 06539407 / Complaint of Clotting disorder / 533610994 / Confirmed COPD / 28765899 / Confirmed Coronary artery disease / 1610051332 / Confirmed Diabetes mellitus / 645202953 / Confirmed GERD - Gastro-esophageal reflux disease / 2508255677 / Confirmed Glaucoma / Confirmed Chronic anticoagulation / 894770181 / Confirmed Hx of pulmonary embolus / 592318090 / Confirmed High blood pressure / 18142159 / Confirmed History of obstructive sleep apnea / 66292284 / Confirmed Hyperlipidemia / 87984897 / Confirmed Multiple renal cysts / 140011722 / Confirmed Emphysema / 084354220 / Confirmed Apnea, sleep / 965101159 / Confirmed Stented coronary artery / 4038673174 / Confirmed Resolved: UTI - Urinary tract infection / 6602512537 Canceled: History of obstructive sleep apnea / 50919134 Histories No education data available. Social & [...] History: Active Cataract Glaucoma Coronary artery disease (4364359423) Stented coronary artery (0400393899) High blood pressure (32914404) Hyperlipidemia (76497427) COPD (84694971) GERD - Gastro-esophageal reflux disease (8676551150) Multiple renal cysts (184020072) Arthritis (5394026) Diabetes mellitus (677538286) Emphysema (452568599) Apnea, sleep (171295277) Hx of pulmonary embolus (337242262) Chronic anticoagulation (240983377) Atrial fibrillation with RVR (8613411059) Resolved UTI - Urinary tract infection (7764198418): Resolved. Family History: Cardiomyopathy Child Stroke Brother Heart attack Brother Sister Leukemia Child Cancer Father Mother Sister Coronary heart disease Child Procedure history: Cardiac Stent on 12/20/2018 at 77 Years. Comments: 03/17/2021 9:03 EVA LAWS RN HARVINDER to LAD Cardiac Stent in 2010 at 70 Years. Cardiac Stent on 01/30/2008 at 67 Years. Comments: 06/13/2020 8:52 EVA LAWS RN PCI w/ [place] stent to D1 Coronary artery bypass graft (464615558) in 1992 at 52 Years. Appendectomy (167423986). back surgury. cataract surgury. Cholecystectomy (68045746). femur repair. Hip replacement (2660251203). Hysterectomy (356550205). uterine suspension. Physical Examination VS/Measurements Vitals Signs [...] (Current Encounter/Past 24 Hours) ProBNP 576 pg/mL CO 03/17/2021 04:45 Blood Gases (Current Encounter/Past 24 Hours) No Blood Gas Results Found (Past 24 Hours) Radiology Results (Last 48 hours) [id number] -- 03/16/2021 15:29 CR Hip Uni Comp [...] on filedocumented in this encounter Care Teams Healthcare Social Worker Relationship Specialty Start Date End Date Jay Howell MD [address] [place] [phone] PCP - General Emergency Medicine 11/12/23 documented as of this encounter
--- OUTSIDE RECORDS SUMMARY | 2025-10-13 13:27 | XMS_ITS | Encounter Summary ---
Author Organization [employer] ([place], [place], [place], [place], [place]) Address [address] [place] [address] Care Team Providers Care Patient Resource Specialist Name Role Phone Jay Howell MD Primary Care Provider [phone] Encounter Details Date Type Department Care Team (Late st Contact Info) Description 08/26/[address] [facility] [place] [address] [place] [address] ProviderJessie MD [address] [place] [phone] Social History Tobacco Use Types Packs/Day Years Used Date Smoking Tobacco: Never Assessed Comments Unknown Sex and Gender Information Value Date Recorded Sex Assigned at Not on file Legal Sex Female 7:30 PM CDT Gender Identity Not on file Sexual Orientation Not on file documented as of this encounter Miscellaneous Notes * Cerner Conversion Note - Jessie ProviderMD - 08/26/2020 9:06 AM QUALITY LEAD Patient: SKYLER MONTOYA Age: 79 years Sex: Female : 1940 Associated Diagnoses: None Author: Cheng Jennings, Acetylene Torch Solderer Cert 79yo female with Left lower extremity [...] Candidate Felicia Perea, KellD Electronically signed by [facility], [facility] Conversion Fashion Buyer Cerner at 02/04/2023 2:17 PM CDT documented in this encounter Plan of Treatment Not on file documented as of this encounter Visit Diagnoses Not on filedocumented in this encounter Care Teams Patient Resource Specialist Relationship Specialty Start Date End Date Jay Howell MD [address] [place] [phone] PCP - General Emergency Medicine 11/12/23 documented as of this encounter
--- OUTSIDE RECORDS SUMMARY | 2025-10-13 13:27 | XMS_ITS | Encounter Summary ---
Author Organization [employer] ([place], [place], [place], [place], [place]) Address [address] [place] [address] Care Team Providers Care Head Tennis Coach Name Role Phone Jay Howell MD Primary Care Provider [phone] Encounter Details Date Type Department Care Team (Late st Contact Info) Description 08/24/2020 Transcribed Document [facility] [place] Family Medicine [address] [place] [address] ProviderJessie MD [address] [place], [place] [phone] Social History Tobacco Use Types Packs/Day Years Used Date Smoking Tobacco: Never Assessed Comments Unknown Sex and Gender Information Value Date Recorded Sex Assigned at Not on file Legal Sex Female 7:30 PM CDT Gender Identity Not on file Sexual Orientation Not on file documented as of this encounter Miscellaneous Notes * Cerner Conversion Note - Historical ProviderMD - 08/24/2020 7:06 PM SUPERVISOR PHOSPHORIC ACID CR Ankle Min 3 Vws LT Ordered: 08/22/2020 Auth (Verified) Reason for Exam: fall08/23/2020 11:53 CR Tibia Fibula 2 Vws LT Ordered: 08/22/2020 Auth (Verified) Reason for Exam: fall08/23/2020 11:53 08/24/2020 19:06 (TRACIE TORRES PA) Reviewed by Provider, No further action required X1 - no acute 08/23/2020 14:33 (ROBBY SANTAMARIA) Provider Review Required Electronically signed by Sivan [facility] Conversion Shiftman Cerner at 02/04/2023 2:10 PM CDT documented in this encounter Plan of Treatment Not on file documented as of this encounter Visit Diagnoses Not on filedocumented in this encounter Care Teams Head Tennis Coach Relationship Specialty Start Date End Date Jay Howell MD [address] [place] [phone] PCP - General Emergency Medicine 11/12/23 documented as of this encounter
--- OUTSIDE RECORDS SUMMARY | 2025-10-13 13:27 | XMS_ITS | Encounter Summary ---
Author Organization [employer] ([place], [place], [place], [place], [place]) Address [address] [place] [address] Care Team Providers Care Wire Sawyer Name Role Phone Jay Howell MD Primary Care Provider [phone] Encounter Details Date Type Department Care Team (Late st Contact Info) Description 03/17/2021 Transcribed Document [facility] [place] [address] [place] [address] ProviderJessie MD [address] [place], [place] [address] Social History Tobacco Use Types Packs/Day Years [...] filedocumented in this encounter Care Teams Wire Sawyer Relationship Specialty Start Date End Date Jay Howell MD [address] [place] [phone] PCP - General Emergency Medicine 11/12/23 documented as of this encounter
--- OUTSIDE RECORDS SUMMARY | 2025-10-13 13:27 | XMS_ITS | Encounter Summary ---
Author Organization [employer] ([place], [place], [place], [place], [place]) Address [address] [place] [address] Care Team Providers Care Systems Developer Name Role Phone Jay Howell MD Primary Care Provider [phone] Encounter Details Date Type Department Care Team (Late st Contact Info) Description 08/25/2020 Transcribed Document [facility] [place] [address] [place] [address] ProviderJessie MD [address] [place] [phone] Social History Tobacco Use Types Packs/Day Years Used Date Smoking Tobacco: Never Assessed Comments Unknown Sex and Gender Information Value Date Recorded Sex Assigned at Not on file Legal Sex Female 7:30 PM CDT Gender Identity Not on file Sexual Orientation Not on file documented as of this encounter Miscellaneous Notes * Cerner Conversion Note - Jessie Yuen MD - 08/25/2020 9:27 AM CREATIVE PROJECT MANAGER Patient: SKYLER MONTOYA Age: 79 years [...] for changes. Rx will follow, Kell PortilloD,BCPS,BCCCP #[phone] documented in this encounter Plan of Treatment Not on file documented as of this encounter Visit Diagnoses Not on filedocumented in this encounter Care Teams Systems Developer Relationship Specialty Start Date End Date Jay Howell MD [address] [place] [phone] PCP - General Emergency Medicine 11/12/23 documented as of this encounter
--- OUTSIDE RECORDS SUMMARY | 2025-10-13 13:27 | XMS_ITS | Encounter Summary ---
Author Organization [employer] ([place], [place], [place], [place], [place]) Address [address] [place] [address] Care Team Providers Care Tire Sorter Name Role Phone Jay Howell MD Primary Care Provider [phone] Encounter Details Date Type Department Care Team (Late st Contact Info) Description 03/17/2021 Transcribed Document [facility] [place] [address] [place] [address] ProviderJessie MD [address] [place], [place] [address] Social History Tobacco Use Types Packs/Day Years [...] on filedocumented in this encounter Care Teams Tire Sorter Relationship Specialty Start Date End Date Jay Howell MD [address] [place] [phone] PCP - General Emergency Medicine 11/12/23 documented as of this encounter
--- OUTSIDE RECORDS SUMMARY | 2025-10-13 13:27 | XMS_ITS | Encounter Summary ---
Author Organization [employer] ([place], [place], [place], [place], [place]) Address [address] [place] [address] Care Team Providers Care Goat Herder Name Role Phone Jay Howell MD Primary Care Provider [phone] Encounter Details Date Type Department Care Team (Late st Contact Info) Description 03/17/2021 Transcribed Document [facility] [place] [address] [place] [address] ProviderJessie MD [address] [place], [place] [phone] Social History Tobacco Use Types Packs/Day Years [...] 17:25 EDT Electronically signed by Sivan [facility] Conversion Public Health Nurse Cerner at 02/04/2023 2:10 PM CDT documented in this encounter Plan of Treatment Not on file documented as of this encounter Visit Diagnoses Not on filedocumented in this encounter Care Teams Goat Herder Relationship Specialty Start Date End Date Jay Howell MD [address] [place] [phone] PCP - General Emergency Medicine 11/12/23 documented as of this encounter
--- OUTSIDE RECORDS SUMMARY | 2025-10-13 13:27 | XMS_ITS | Encounter Summary ---
Author Organization [employer] ([place], [place], [place], [place], [place]) Address [address] [place] [address] Care Team Providers Care Autism Specialist Name Role Phone Jay Howell MD Primary Care Provider [phone] Encounter Details Date Type Department Care Team (Late st Contact Info) Description 03/19/2021 Transcribed Document [facility] [place] Medicine [address] [place] [address] ProviderJessie MD [address] [place], [place] [address] Social History Tobacco Use Types Packs/Day Years [...] of the form. Electronically signed by Sivan, [facility] Conversion Handkerchief Sample Clerk Cerner at 02/04/2023 2:02 PM CDT documented in this encounter Plan of Treatment Not on file documented as of this encounter Visit Diagnoses Not on filedocumented in this encounter Care Teams Autism Specialist Relationship Specialty Start Date End Date Jay Howell MD [address] [place] [phone] PCP - General Emergency Medicine 11/12/23 documented as of this encounter
--- OUTSIDE RECORDS SUMMARY | 2025-10-13 13:27 | XMS_ITS | Encounter Summary ---
Author Organization [employer] ([place], [place], [place], [place], [place]) Address [address] [place] [address] Care Team Providers Care Silver Chaser Name Role Phone Jay Howell MD Primary Care Provider [phone] Encounter Details Date Type Department Care Team (Late st Contact Info) Description 09/08/2020 Transcribed Document [facility] [place] [address] [place] [address] ProviderJessie MD [address] [place] [address] Social History Tobacco Use Types Packs/Day Years Used Date Smoking Tobacco: Never Assessed Comments Unknown Sex and Gender Information Value Date Recorded Sex Assigned at Not on file Legal Sex Female 7:30 PM CDT Gender Identity Not on file Sexual Orientation Not on file documented as of this encounter Miscellaneous Notes * Cerner Conversion Note - Jessie Yuen MD - 09/08/2020 5:27 PM PATIENT REGISTRAR Patient: SKYLER MONTOYA Age: 79 Years Sex: [...] on filedocumented in this encounter Care Teams Silver Chaser Relationship Specialty Start Date End Date Jay Howell MD [address] [place] [phone] PCP - General Emergency Medicine 11/12/23 documented as of this encounter
--- OUTSIDE RECORDS SUMMARY | 2025-10-13 13:27 | XMS_ITS | Encounter Summary ---
Author Organization [employer] ([place], [place], [place], [place], [place]) Address [address] [address] Care Team Providers Care Occ Ther Name Role Phone Jay Howell MD Primary Care Provider [phone] Encounter Details Date Type Department Care Team (Late st Contact Info) Description 08/26/2020 Transcribed Document [facility] [place] [address] [place] [address] ProviderJessie MD [address] [place] [phone] Social History Tobacco Use Types Packs/Day Years Used Date Smoking Tobacco: Never Assessed Comments Unknown Sex and Gender Information Value Date Recorded Sex Assigned at Not on file Legal Sex Female 7:30 PM CDT Gender Identity Not on file Sexual Orientation Not on file documented as of this encounter Miscellaneous Notes * Cerner Conversion Note - Jessie ProviderMD - 08/26/2020 6:06 PM HOTEL DIRECTOR Spiritual Care Short Form Entered On: 08/26/2020 18:06 EST Performed On: 08/26/2020 18:06 EST by JEREMIAH HULL General Information, Spiritual Care Spiritual Care Referred by : Nurse Reason for Visit : Referral/Consult Hoahaoism Preference : Quaker JEREMIAH HULL - 08/26/2020 18:06 EST documented in this encounter Plan of Treatment Not on file documented as of this encounter Visit Diagnoses Not on filedocumented in this encounter Care Teams Occ Ther Relationship Specialty Start Date End Date Jay Howell MD [address] [place] [phone] PCP - General Emergency Medicine 11/12/23 documented as of this encounter
--- OUTSIDE RECORDS SUMMARY | 2025-10-13 13:27 | XMS_ITS | Encounter Summary ---
Author Organization [employer] ([place], [place], [place], [place], [place]) Address [address] [place] [address] Care Team Providers Care Elevator Examiner And Adjuster Name Role Phone Jay Howell MD Primary Care Provider [phone] Encounter Details Date Type Department Care Team (Late st Contact Info) Description 08/25/2020 Transcribed Document [facility] [place] [address] [place] [address] ProviderJessie MD [address] [place] [phone] Social History Tobacco Use Types Packs/Day Years Used Date Smoking Tobacco: Never Assessed Comments Unknown Sex and Gender Information Value Date Recorded Sex Assigned at Not on file Legal Sex Female 7:30 PM CDT Gender Identity Not on file Sexual Orientation Not on file documented as of this encounter Miscellaneous Notes * Cerner Conversion Note - Jessie ProviderMD - 08/25/2020 10:42 AM GAMING INVESTIGATOR Patient: SKYLER MONTOYA Age: 79 years Sex: Female : 1940 Associated Diagnoses: None Author: KAVITHA HIDALGO MD-INF ID CONSULT DICTATED Electronically signed by Abel Finnegan Conversion Roll Forming Machine Set Up Mechanic Cerner at 02/04/2023 2:09 PM CDT documented in this encounter Plan of Treatment Not on file documented as of this encounter Visit Diagnoses Not on filedocumented in this encounter Care Teams Elevator Examiner And Adjuster Relationship Specialty Start Date End Date Jay Howell MD [address] [place] [phone] PCP - General Emergency Medicine 11/12/23 documented as of this encounter
--- OUTSIDE RECORDS SUMMARY | 2025-10-13 13:27 | XMS_ITS | Encounter Summary ---
Author Organization [employer] ([place], [place], [place], [place], [place]) Address [address] [place] [address] Care Team Providers Care Filament Welder Name Role Phone Jay Howell MD Primary Care Provider [phone] Encounter Details Date Type Department Care Team (Late st Contact Info) Description 08/26/2020 Transcribed Document [facility] [place] [address] [place] [address] ProviderJessie MD [address] [place], [place] [address] Social History Tobacco Use Types Packs/Day Years Used Date Smoking Tobacco: Never Assessed Comments Unknown Sex and Gender Information Value Date Recorded Sex Assigned at Not on file Legal Sex Female 7:30 PM CDT Gender Identity Not on file Sexual Orientation Not on file documented as of this encounter Miscellaneous Notes * Cerner Conversion Note - Jessie ProviderMD - 08/26/2020 10:39 AM CAN SOLDERER UM Authorization Entered On: 08/26/2020 10:39 EST Performed On: 08/26/2020 10:39 EST by MARILYNN RAMÍREZ, RN-Utilization Review Primary Insurance Authorization Authorization and Policy Numbers : Insurance 1 Health Plan: MEDICARE Policy Number: [id number] Authorization Number: Insurance 2 Health Plan: AARP N Policy Number: [id number] Authorization Number: Insurance Primary Name : MEDICARE Policy Number: [id number] Authorized Service Begin Date-Primary : 08/25/2020 EST Historical Authorization Comments-Primary : No Authorization Comments Found MARILYNN RAMÍREZ, RN-Utilization Review - 08/26/2020 10:39 EST Electronically signed by Sivan [facility] Conversion Pool Attendant Cerner at 02/04/2023 2:22 PM CDT documented in this encounter Plan of Treatment Not on file documented as of this encounter Visit Diagnoses Not on filedocumented in this encounter Care Teams Filament Welder Relationship Specialty Start Date End Date Jay Howell MD [address] [place] [phone] PCP - General Emergency Medicine 11/12/23 documented as of this encounter
--- OUTSIDE RECORDS SUMMARY | 2025-10-13 13:27 | XMS_ITS | Encounter Summary ---
Author Organization [employer] ([place], [place], [place], [place], [place]) Address [address] [place] [address] Care Team Providers Care Preschool Program Director Name Role Phone Jay Howell MD Primary Care Provider [phone] Encounter Details Date Type Department Care Team (Late st Contact Info) Description 08/31/2020 Transcribed Document [facility] [place] [address] [place] [address] ProviderJessie MD [address] [place] [address] Social History Tobacco Use Types Packs/Day Years Used Date Smoking Tobacco: Never Assessed Comments Unknown Sex and Gender Information Value Date Recorded Sex Assigned at Not on file Legal Sex Female 7:30 PM CDT Gender Identity Not on file Sexual Orientation Not on file documented as of this encounter Miscellaneous Notes * Cerner Conversion Note - Jessie Yuen MD - 08/31/2020 9:43 AM HVAC TECHNICIAN Patient: SKYLER MONTOYA Age: 79 years [...] mg, 6 mL, 112 mL/Hr, IV Piggyback, [id number] DuoNeb 0.5 mg-2.5 mg/3 mL inhalation solution: [...] Tab, Oral, Daily, 30 Tab, 0 Refill(s) [place] 7.5 mg-325 mg oral tablet: 1 Tab, [...] mL 300 mg 6 mL, IV Piggyback, D33LBfo dorzolamide 2% ophth soln 10 mL 1 [...] Confirmed Coronary artery disease / SNOMED CT 0208071384 / Confirmed Stented coronary artery / SNOMED CT 1542030003 / Confirmed High blood pressure / SNOMED CT 16273344 / Confirmed Hyperlipidemia / SNOMED CT 33724812 / Confirmed COPD / SNOMED CT 66508323 / Confirmed GERD - Gastro-esophageal reflux disease / SNOMED CT 9021833446 / Confirmed Multiple renal cysts / SNOMED CT 117210824 / Confirmed Arthritis / SNOMED CT 5782640 / Confirmed Diabetes mellitus / SNOMED CT 500228941 / Confirmed Emphysema / SNOMED CT 730031585 / Confirmed Apnea, sleep / SNOMED CT 899769319 / Confirmed Hx of pulmonary embolus / SNOMED CT 680332307 / Confirmed Chronic anticoagulation / SNOMED CT 246553640 / Confirmed Atrial fibrillation with RVR / SNOMED CT 8914861123 / Confirmed Chest pain / SNOMED CT 80315322 / Complaint of History of obstructive sleep apnea / IMO 28450633 / Confirmed Resolved: UTI - Urinary tract infection / SNOMED CT 2987875060 Canceled: History of obstructive sleep apnea / IMO 36921355, Active Problems (20) Apnea, sleep Arthritis Atrial [...] on filedocumented in this encounter Care Teams Preschool Program Director Relationship Specialty Start Date End Date Jay Howell MD [address] [place] [phone] PCP - General Emergency Medicine 11/12/23 documented as of this encounter
--- OUTSIDE RECORDS SUMMARY | 2025-10-13 13:27 | XMS_ITS | Encounter Summary ---
Author Organization [employer] ([place], [place], [place], [place], [place]) Address [address] [place] [address] Care Team Providers Care Net Programmer Analyst Name Role Phone Jay Howell MD Primary Care Provider [phone] Encounter Details Date Type Department Care Team (Late st Contact Info) Description 08/25/2020 Transcribed Document [facility] [place] [address] [place] [address] ProviderJessie MD [address] [place] [address] [phone] Social History Tobacco Use Types Packs/Day Years Used Date Smoking Tobacco: Never Assessed Comments Unknown Sex and Gender Information Value Date Recorded Sex Assigned at Not on file Legal Sex Female 7:30 PM CDT Gender Identity Not on file Sexual Orientation Not on file documented as of this encounter Miscellaneous Notes * Cerner Conversion Note - Jessie ProviderMD - 08/25/2020 6:14 PM CARD DEALER Admission History, Adult Entered On: 08/25/2020 18:21 [...] Ambulatory Legal Guardian : Spouse Support Person/Patient Chip Mixer : Yes Support Person/Pt Rep Name : Willard Contact Password : Marvin Support Person/Pt Rep Contact Information : [phone] Want Family/Rep/Phys Notified of Admit : No [...] Obtained From : Patient Primary Language : Scottish Preferred Communication Mode : Verbal Communication Barrier : None Tailer Out Needed : No ROMEO PADRON RN - [...] Level : 46 or > High Risk [place] Fall Interventions : Adequate lighting, Assistive devices [...] Source : Stated Height Entry Format : [place] Height, Feet : 5 ft(Converted to: 152 cm, 60 Inch) Height, Inches : 3 Inch(Converted to: 0 ft 3 Inch, 7.62 cm) Clinical Height : 160.02 cm Weight Source : Bed scale Weight Entry Format : [place] Clinical Dosing Weight : 69.09 kg Weight, Pounds : 152 lb Body Surface Area (BSA) : 1.72 m2 Body Mass Index : 27 kg/m2 (HI) [place] Body Weight : 52 kg ROMEO PADRON [...] ROMEO PADRON RN - 08/25/2020 18:14 EST [place] Suicide Severity Rating Scale (C-SSRS) CSSRS Past [...] - 08/25/2020 18:14 EST Electronically signed by [facility] Conversion Mine Car Dispatcher Cerner at 02/04/2023 2:14 PM CDT documented in this encounter Plan of Treatment Not on file documented as of this encounter Visit Diagnoses Not on filedocumented in this encounter Care Teams Net Programmer Analyst Relationship Specialty Start Date End Date Jay Howell MD [address] [place] [phone] PCP - General Emergency Medicine 11/12/23 documented as of this encounter
--- OUTSIDE RECORDS SUMMARY | 2025-10-13 13:27 | XMS_ITS | Encounter Summary ---
Author Organization [employer] ([place], [place], [place], [place], [place]) Address [address] [place] [address] Care Team Providers Care Devops Architect Name Role Phone Jay Howell MD Primary Care Provider [phone] Encounter Details Date Type Department Care Team (Late st Contact Info) Description 09/15/2020 Transcribed Document [facility] [place] Family Medicine [address] [place] [address] ProviderJessie MD [address] [place] [address] [phone] Social History Tobacco Use Types Packs/Day Years Used Date Smoking Tobacco: Never Assessed Comments Unknown Sex and Gender Information Value Date Recorded Sex Assigned at Not on file Legal Sex Female 7:30 PM CDT Gender Identity Not on file Sexual Orientation Not on file documented as of this encounter Miscellaneous Notes * Cerner Conversion Note - Jessie Yuen MD - 09/15/2020 4:06 PM OFFAL ICER POULTRY Patient: SKYLER MONTOYA Age: 79 Years Sex: [...] present starting at the level of the FRUIT RAISER. Non significant, non-flow restricting plaque noted at common femoral artery. 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 There is a significant (50-75%) stenosis of the distal FRUIT RAISER. Non significant, non-flow restricting plaque noted at DPA. FRUIT RAISER & DPA non compressible for FERNIE. TBI: Non compressible. LEFT: Abnormal arterial runoff disease present starting at the level of the FRUIT RAISER. Non significant, non-flow restricting plaque noted at common femoral artery. There is a severe (>75%) stenosis of the distal FRUIT RAISER. FRUIT RAISER & DPA non compressible for FERNIE. TBI: Non compressible. Electronically signed by Gayle Finnegan Conversion Commercial Real Estate Paralegal Cerner at 02/04/2023 2:21 PM CDT documented in this encounter Plan of Treatment Not on file documented as of this encounter Visit Diagnoses Not on filedocumented in this encounter Care Teams Devops Architect Relationship Specialty Start Date End Date Jay Howell MD [address] [place] [phone] PCP - General Emergency Medicine 11/12/23 documented as of this encounter
--- OUTSIDE RECORDS SUMMARY | 2025-10-13 13:27 | XMS_ITS | Encounter Summary ---
Author Organization [employer] ([place], [place], [place], [place], [place]) Address [address] [place] [address] Care Team Providers Care Land Acquisition Manager Name Role Phone Jay Howell MD Primary Care Provider [phone] Encounter Details Date Type Department Care Team (Late st Contact Info) Description 08/29/2020 Transcribed Document [facility] Family Medicine [address] [place] [address] ProviderJessie MD [address] [place] [address] [phone] Social History Tobacco Use Types Packs/Day Years Used Date Smoking Tobacco: Never Assessed Comments Unknown Sex and Gender Information Value Date Recorded Sex Assigned at Not on file Legal Sex Female 7:30 PM CDT Gender Identity Not on file Sexual Orientation Not on file documented as of this encounter Miscellaneous Notes * Cerner Conversion Note - Jessie ProviderMD - 08/29/2020 1:32 PM GROUND CONTROL APPROACH TECHNICIAN Discharge Summary, PT Entered On: 08/29/2020 13:33 [...] 08/29/2020 13:32 EST Electronically signed by Interface, [facility] Conversion Laborer Beam House Cerner at 02/04/2023 2:09 PM CDT documented in this encounter Plan of Treatment Not on file documented as of this encounter Visit Diagnoses Not on filedocumented in this encounter Care Teams Land Acquisition Manager Relationship Specialty Start Date End Date Jay Howell MD [address] [place] [phone] PCP - General Emergency Medicine 11/12/23 documented as of this encounter
--- OUTSIDE RECORDS SUMMARY | 2025-10-13 13:27 | XMS_ITS | Encounter Summary ---
Author Organization [employer] ([place], [place], [place], [place], [place]) Address [address] [place] [address] Care Team Providers Care Desk Reporter Name Role Phone Jay Howell MD Primary Care Provider [phone] Encounter Details Date Type Department Care Team (Late st Contact Info) Description 03/17/2021 Transcribed Document [facility] [place] [address] [place] [address] ProviderJessie MD [address] [place], [place] [phone] Social History Tobacco Use Types Packs/Day Years [...] On: 03/17/2021 9:00 EDT by TASHI LIND, [facility] Phone Call for Consults Consult, Additional Information : notified by physician TASHI LIND, [facility] - 03/18/2021 8:31 EDT Electronically signed by Gayle Finnegan Conversion Optics Manufacturing Technician Cerner at 02/04/2023 2:06 PM CDT documented in this encounter Plan of Treatment Not on file documented as of this encounter Visit Diagnoses Not on filedocumented in this encounter Care Teams Desk Reporter Relationship Specialty Start Date End Date Jay Howell MD [address] [place] [phone] PCP - General Emergency Medicine 11/12/23 documented as of this encounter
--- OUTSIDE RECORDS SUMMARY | 2025-10-13 13:27 | XMS_ITS | Encounter Summary ---
Author Organization [employer] ([place], [place], [place], [place], [place]) Address [address] [place] [address] Care Team Providers Care Cable Engineer Name Role Phone Jay Howell MD Primary Care Provider [phone] Encounter Details Date Type Department Care Team (Late st Contact Info) Description 09/04/2020 Transcribed Document [facility] [place] Medicine [address] [place] [address] ProviderJessie MD [address] [place] [address] [phone] Social History Tobacco Use Types Packs/Day Years Used Date Smoking Tobacco: Never Assessed Comments Unknown Sex and Gender Information Value Date Recorded Sex Assigned at Not on file Legal Sex Female 7:30 PM CDT Gender Identity Not on file Sexual Orientation Not on file documented as of this encounter Miscellaneous Notes * Cerner Conversion Note - Jessie Yuen MD - 09/04/2020 2:10 AM WEATHER STRIPPER ED Discharge Entered On: 09/04/2020 4:14 EST [...] EST Electronically signed by Sivan, [facility] Conversion Motorman/Woman Cerner at 02/04/2023 2:10 PM CDT documented in this encounter Plan of Treatment Not on file documented as of this encounter Visit Diagnoses Not on filedocumented in this encounter Care Teams Cable Engineer Relationship Specialty Start Date End Date Jay Howell MD [address] [place] [phone] PCP - General Emergency Medicine 11/12/23 documented as of this encounter
--- OUTSIDE RECORDS SUMMARY | 2025-10-13 13:27 | XMS_ITS | Encounter Summary ---
Author Organization [employer] ([place], [place], [place], [place], [place]) Address [address] [place] [address] Care Team Providers Care Passenger Screener Name Role Phone Jay Howell MD Primary Care Provider [phone] Encounter Details Date Type Department Care Team (Late st Contact Info) Description 03/17/2021 Transcribed Document [facility] Family Medicine [address] [place] [address] ProviderJessie MD [address] [place], [place] [phone] Social History Tobacco Use Types Packs/Day Years Used Date Smoking Tobacco: Never Assessed Comments Unknown Sex and Gender Information Value Date Recorded Sex Assigned at Not on file Legal Sex Female 7:30 PM CDT Gender Identity Not on file Sexual Orientation Not on file documented as of this encounter Miscellaneous Notes * Cerner Conversion Note - Jesise ProviderMD - 03/17/2021 12:48 PM CDT UM Authorization Entered On: 03/17/2021 12:49 EDT Performed On: 03/17/2021 12:48 EDT by MARILYNN RAMÍREZ, RN-Utilization Review Primary Insurance Authorization Authorization and Policy Numbers : Insurance 1 Health Plan: MEDICARE Policy Number: [id number] Authorization Number: Insurance 2 Health Plan: AARP N Policy Number: [id number] Authorization Number: Insurance Primary Name : MEDICARE Policy Number: [id number] Authorized Service Begin Date-Primary : 03/16/2021 EDT Historical Authorization Comments-Primary : No Authorization Comments Found MARILYNN RAMÍREZ, RN-Utilization Review - 03/17/2021 12:48 EDT Electronically signed by Sivan [facility] Conversion Music Therapy Specialist Cerner at 02/04/2023 2:08 PM CDT documented in this encounter Plan of Treatment Not on file documented as of this encounter Visit Diagnoses Not on filedocumented in this encounter Care Teams Passenger Screener Relationship Specialty Start Date End Date Jay Howell MD [address] [place] [phone] PCP - General Emergency Medicine 11/12/23 documented as of this encounter
--- OUTSIDE RECORDS SUMMARY | 2025-10-13 13:27 | XMS_ITS | Encounter Summary ---
Author Organization [employer] ([place], [place], [place], [place], [place]) Address [address] [place] [address] Care Team Providers Care Cardiovascular Specialist Name Role Phone Jay Howell MD Primary Care Provider [phone] Encounter Details Date Type Department Care Team (Late st Contact Info) Description 09/04/2020 Transcribed Document [facility] [place] [address] [place] [address] ProviderJessie MD [address] [place] [address] [phone] Social History Tobacco Use Types Packs/Day Years Used Date Smoking Tobacco: Never Assessed Comments Unknown Sex and Gender Information Value Date Recorded Sex Assigned at Not on file Legal Sex Female 7:30 PM CDT Gender Identity Not on file Sexual Orientation Not on file documented as of this encounter Miscellaneous Notes * Cerner Conversion Note - Jessie ProviderMD - 09/04/2020 4:13 AM COMPLIANCE ANALYST ED Event Note Entered On: 09/04/2020 4:13 EST Performed On: 09/04/2020 4:13 EST by Chinyere Leonard RN ED Event Note ED Event Date/Time : 09/04/2020 2:00 EST ED Description of Event : pt arrived during system downtime; view downtime form Chinyere Leonard RN - 09/04/2020 4:13 EST Electronically signed by Sivan [facility] Conversion Ammunition Storage Superintendent Cerner at 02/04/2023 2:13 PM CDT documented in this encounter Plan of Treatment Not on file documented as of this encounter Visit Diagnoses Not on filedocumented in this encounter Care Teams Cardiovascular Specialist Relationship Specialty Start Date End Date Jay Howell MD [address] [place] [phone] PCP - General Emergency Medicine 11/12/23 documented as of this encounter
--- OUTSIDE RECORDS SUMMARY | 2025-10-13 13:27 | XMS_ITS | Encounter Summary ---
Author Organization [employer] ([place], [place], [place], [place], [place]) Address [address] [place] [address] Care Team Providers Care Regional Climate Change Analyst Name Role Phone Jay Howell MD Primary Care Provider [phone] Encounter Details Date Type Department Care Team (Late st Contact Info) Description 03/17/2021 Transcribed Document [facility] [place] [address] [place] [address] ProviderJessie MD [address] [place] [address] [phone] Social History Tobacco Use Types Packs/Day Years [...] filedocumented in this encounter Care Teams Regional Climate Change Analyst Relationship Specialty Start Date End Date Jay Howell MD [address] [place] [phone] PCP - General Emergency Medicine 11/12/23 documented as of this encounter
--- OUTSIDE RECORDS SUMMARY | 2025-10-13 13:27 | XMS_ITS | Encounter Summary ---
Author Organization [employer] ([place], [place], [place], [place], [place]) Address [address] [place] [address] Care Team Providers Care Gas Operator Name Role Phone Jay Howell MD Primary Care Provider [phone] Encounter Details Date Type Department Care Team (Late st Contact Info) Description 09/01/2020 Transcribed Document [facility] [place] [address] [place] [address] ProviderJessie MD [address] [place] [address] Social History Tobacco Use Types Packs/Day [...] Jessie Yuen MD - 09/01/2020 2:22 PM CELLULAR EQUIPMENT INSTALLER [facility] [place] [address] SKYLER MONTOYA :1940 Visit Time:08/25/2020 Your Visit Summary Your Care Team Admitting Physician - BETH DAVLAOS MD-INT Attending Physician - SARAH CONTEH MD [...] wound vac Community Services: [facility] ///after hours & weekends-- Medical Equipment for Home Use: ROTECH--wound vac STOP the following medications: STOP Aspirin STOP Clindamycin STOP Bactroban Ointment STOP Hydralazine 10 mg tablets ---- Dose increased and NEW RX Provided STOP Warfarin 2 mg tablets --- Dose changed to 3 mg daily x next 5 days. NEW RX Provided. STOP [place] 7.5/325 mg tablets --- NEW RX Provided for 5/325 mg tablets --- Take one or the other - Do not take both. Discharge Activity: Discharge Activity: No heavy lifting over 10 lbs, Avoid Strenuous Activity Until: for 1 week Follow-Up Appointments Follow Up with KAELA VERDE When 09/29/2020 12:30 PM EST Comments F/u w/ FERNIE Where: [facility] [address] [place] [phone]- Business (1) Follow Up with KAELA VERDE When 09/08/2020 12:45 PM EST Comments F/u [facility] with Irina Troy PA-C Where: [facility] [address] [place] [address]- Business (1) Follow Up with TARA CHEN When 09/05/2020 12:20 PM EST Comments needs INR check///We have held your Aspirin per vascular surgeon, Dr. Verde///Appointment has been made Where: [address] [place] [address]- Business (1) Follow Up with KAVITHA HIDALGO When 09/03/2020 02:30 PM EST Comments Appointment has been made Where: [address] [place] [address]- Business (1) Medications What How Much When Instructions Next Dose amoxicillin-clavulanate (amoxicillin-clavulanate 875 mg-125 mg oral tablet) 1 Tablet(s) Oral Every 12 hours Duration: 3 Day(s) Pickup at [facility] [place] Tuesday09/01/2020 9:00 PM clopidogrel (Plavix 75 mg oral tablet) 1 Tablet(s) Oral Every Day Pickup at [facility] [place] Tuesday09/02/2020 9:00 AM doxycycline (Vibramycin 100 mg oral capsule) 1 Capsule(s) Oral Two Times A Day Duration: 3 Day(s) Pickup at [facility] Tuesday09/01/2020 9:00 PM enoxaparin (Lovenox 80 mg/ 0.8 mL injectable solution) 70 Milligram(s) SubCutaneous Every 12 hours Duration: 5 Day(s) Pickup at [facility] [place] Tuesday09/01/2020 9:00 PM lactobacillus acidophilus (lactobacillus acidophilus oral tablet) 2 Tablet(s) Oral Every Day Duration: 28 Day(s) Pickup at [facility] Tuesday09/02/2020 9:00 AM terbinafine (terbinafine 250 mg oral tablet) 1 Tablet(s) Oral Every Day Duration: 6 weeks Pickup at [facility] Tuesday09/02/2020 9:00 AM ALPRAZolam (Xanax 0.5 mg oral tablet) 1 Tablet(s) Oral At Bedtime as needed for for anxiety/sleep acetaminophen-hydrocodone ([place] 5 mg-325 mg oral tablet) 1 Tablet(s) Oral Every 4 Hours as needed for for pain NEW DOSE. New RX Provided. amLODIPine (Norvasc 10 mg oral tablet) 1 Tablet(s) Oral Every Day Pickup at [facility] [place] Tuesday09/02/2020 9:00 AM atorvastatin (atorvastatin 80 mg oral tablet) 1 Tablet(s) Oral At Bedtime Pickup at [facility] [place] Tuesday09/01/2020 9:00 PM carvedilol (carvedilol 6.25 mg [...] A Day Tuesday09/01/2020 9:00 PM Pharmacy Information [facility] [place]: [address] [facility] [address] [place], [place] [phone] Take your medications faithfully. Do NOT skip [...] bag. ??? Soap and water, or hand inner layer scrubber tender. ??? Wound cleanser or salt-water solution (saline). [...] and water are not available, use hand inner layer scrubber tender. 3. Set up a clean station for [...] and water are not available, use hand inner layer scrubber tender. Clean your wound ??? Wear gloves, protective [...] and water are not available, use hand inner layer scrubber tender. Apply new dressing ??? Wear gloves, protective [...] and water are not available, use hand inner layer scrubber tender. 8. Turn the pump back on. The sponge dressing should collapse. Do not change the settings on the machine without talking to a health care provider. 9. Replace the container in the pump that collects fluid if it is full. Replace the container per the book coverer's instructions or at least once a week, [...] clamps are open. ??? Do not use qpcf-fau-tuxymbe medicated or antiseptic creams, sprays, liquids, or [...] 12/25/2012 Document Revised: 01/25/2020 Document Reviewed: 12/21/2019 [employer] Patient Education ?? 2020 [employer] Cellulitis, Adult Cellulitis is a skin [...] these instructions at home: Medicines ??? Take jckv-dcw-nzjuxku and prescription medicines only as told by [...] 03/21/2009 Document Revised: 02/22/2019 Document Reviewed: 02/22/2019 [employer] Patient Education ?? 2020 [employer] What You Need to Know About [...] other medicines or supplements? Many prescription and dzqy-unl-sivpumr medicines can interfere with warfarin. Talk with your health care provider or your pharmacist before starting or stopping any new medicines. This includes ivzp-qhv-xxzquas vitamins, dietary supplements, herbal medicines, and pain medicines. Your warfarin dosage may need to be adjusted. ??? Some common yxcz-bqv-srqvtgm medicines that may increase the risk of [...] that you work with a diet and senior quality methods specialist (dietitian). ??? Vitamin K decreases the [...] ??? Noodles, eggs, and spinach, enriched. ??? Mcdaniels sprouts, raw or cooked. ??? Beet greens, [...] diet. ??? You start or stop any lnni-vyd-uthdaqn medicine, prescription medicine, or dietary supplement. ??? [...] 10/03/2006 Document Revised: 05/16/2018 Document Reviewed: 12/29/2016 [employer] Patient Education ?? 2020 [employer]. Hematoma A hematoma is a collection of [...] health care provider. General instructions ??? Take hkxk-tms-xxlpnww and prescription medicines only as told by [...] Assistance with quitting is available by contacting 8-280-XCUGNOW. This is a free resource providing counseling, support, and referral. Or you may contact your personal physician. Drip In Suicide Prevention Lifeline: The National Suicide Prevention [...] ( 0.0 and 7.0 ) Camp #: 0.64 K/uL -- Normal range between ( 0.16 and 1.00 ) Eos #: 0.11 x10(3)/uL -- Normal range between ( 0.00 and 0.80 ) Camp %: 10.7 % -- Normal range between [...] was given the opportunity to ask questions. Patient/Redye Hand Name: Patient/Redye Hand Signature: Relationship to Patient: Clinician/Hospital Redye Hand Signature: Date: Electronically signed by Sivan, [facility] Conversion Culture Media Laboratory Assistant Cerner at 02/04/2023 2:00 PM CDT documented in this encounter Plan of Treatment Not on file documented as of this encounter Visit Diagnoses Not on filedocumented in this encounter Care Teams Gas Operator Relationship Specialty Start Date End Date Jay Howell MD [address] [place] [phone] PCP - General Emergency Medicine 11/12/23 documented as of this encounter
--- OUTSIDE RECORDS SUMMARY | 2025-10-13 13:27 | XMS_ITS | Encounter Summary ---
Author Organization [employer] ([place], [place], [place], [place], [place]) Address [address] [place] [address] Care Team Providers Care Glue Cook Name Role Phone Jay Howell MD Primary Care Provider [phone] Encounter Details Date Type Department Care Team (Late st Contact Info) Description 03/17/2021 Transcribed Document [facility] [place] Family Medicine [address] [place] [address] ProviderJessie MD [address] [place], [place] [phone] Social History Tobacco Use Types Packs/Day Years [...] the form. Electronically signed by Sivan, [facility] Conversion Clerk Supervisor Cerner at 02/04/2023 2:16 PM CDT documented in this encounter Plan of Treatment Not on file documented as of this encounter Visit Diagnoses Not on filedocumented in this encounter Care Teams Glue Cook Relationship Specialty Start Date End Date Jay Howell MD [address] [place] [phone] PCP - General Emergency Medicine 11/12/23 documented as of this encounter
--- OUTSIDE RECORDS SUMMARY | 2025-10-13 13:27 | XMS_ITS | Encounter Summary ---
Author Organization [employer] ([place], [place], [place], [place], [place]) Address [address] [place] [address] Care Team Providers Care Rn Chronic Name Role Phone Jay Howell MD Primary Care Provider [phone] Encounter Details Date Type Department Care Team (Late st Contact Info) Description 03/18/2021 Transcribed Document [facility] Family Medicine [address] [place] [address] ProviderJessie MD [address] [place] [phone] Social History Tobacco Use Types Packs/Day Years [...] 03/18/2021 13:27 EDT Electronically signed by Sivan [facility] Conversion Patient Resource Specialist Cerner at 02/04/2023 2:02 PM CDT documented in this encounter Plan of Treatment Not on file documented as of this encounter Visit Diagnoses Not on filedocumented in this encounter Care Teams Rn Chronic Relationship Specialty Start Date End Date Jay Howell MD [address] [place] [phone] PCP - General Emergency Medicine 11/12/23 documented as of this encounter
--- OUTSIDE RECORDS SUMMARY | 2025-10-13 13:27 | XMS_ITS | Encounter Summary ---
Author Organization [employer] ([place], [place], [place], [place], [place]) Address [address] [place] [address] Care Team Providers Care Fly Worker Name Role Phone Jay Howell MD Primary Care Provider [phone] Encounter Details Date Type Department Care Team (Late st Contact Info) Description 09/29/2020 Transcribed Document [facility] [place] Family Medicine [address] [place] [address] ProviderJessie MD [address] [place] [address] Social History Tobacco Use Types Packs/Day Years Used Date Smoking Tobacco: Never Assessed Comments Unknown Sex and Gender Information Value Date Recorded Sex Assigned at Not on file Legal Sex Female 7:30 PM CDT Gender Identity Not on file Sexual Orientation Not on file documented as of this encounter Miscellaneous Notes * Cerner Conversion Note - Jessie Yuen MD - 09/29/2020 5:14 PM HEEL SEAT LASTER Patient: SKYLER MONTOYA Age: 79 Years Sex: [...] starting at the level of the SUPERVISOR DIAGNOSTIC. Non significant, non-flow restricting plaque noted at common femoral artery. 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 There is a significant (50-75%) stenosis of the distal SUPERVISOR DIAGNOSTIC. Non significant, non-flow restricting plaque noted at DPA. SUPERVISOR DIAGNOSTIC & DPA non compressible for FERNIE. TBI: Non compressible. LEFT: Abnormal arterial runoff disease present starting at the level of the SUPERVISOR DIAGNOSTIC. Non significant, non-flow restricting plaque noted at common femoral artery. There is a severe (>75%) stenosis of the distal SUPERVISOR DIAGNOSTIC. SUPERVISOR DIAGNOSTIC & DPA non compressible for FERNIE. TBI: Non compressible. documented in this encounter Plan of Treatment Not on file documented as of this encounter Visit Diagnoses Not on filedocumented in this encounter Care Teams Fly Worker Relationship Specialty Start Date End Date Jay Howell MD [address] [place] [phone] PCP - General Emergency Medicine 11/12/23 documented as of this encounter
--- OUTSIDE RECORDS SUMMARY | 2025-10-13 13:27 | XMS_ITS | Encounter Summary ---
Author Organization [employer] ([place], [place], [place], [place], [place]) Address [address] [place] [address] Care Team Providers Care Electric Accounting Machine Operator Name Role Phone Jay Howell MD Primary Care Provider [phone] Encounter Details Date Type Department Care Team (Late st Contact Info) Description 03/17/2021 Transcribed Document [facility] [place] Family Medicine [address] [place] [address] ProviderJessie MD [address] [place], [place] [address] Social History Tobacco Use Types Packs/Day Years [...] of the form. Electronically signed by Sivan [facility] Conversion Cellulose Insulation Helper Cerner at 02/04/2023 2:02 PM CDT documented in this encounter Plan of Treatment Not on file documented as of this encounter Visit Diagnoses Not on filedocumented in this encounter Care Teams Electric Accounting Machine Operator Relationship Specialty Start Date End Date Jay Howell MD [address] [place] [phone] PCP - General Emergency Medicine 11/12/23 documented as of this encounter
--- OUTSIDE RECORDS SUMMARY | 2025-10-13 13:27 | XMS_ITS | Encounter Summary ---
Author Organization [employer] ([place], [place], [place], [place], [place]) Address [address] [place] [address] Care Team Providers Care Nurse Infection Control Name Role Phone Jay Howell MD Primary Care Provider [phone] Encounter Details Date Type Department Care Team (Late st Contact Info) Description 03/17/2021 Transcribed Document [facility] [place] Family Medicine [address] [place] [address] ProviderJessie MD [address] [place], [place] [phone] Social History Tobacco Use Types Packs/Day Years Used Date Smoking Tobacco: Never Assessed Comments Unknown Sex and Gender Information Value Date Recorded Sex Assigned at Not on file Legal Sex Female 7:30 PM CDT Gender Identity Not on file Sexual Orientation Not on file documented as of this encounter Miscellaneous Notes * Cerner Conversion Note - Jessie ProviderMD - 03/17/2021 2:00 AM CDT Size Roller Operator Details Entered On: 03/17/2021 3:32 EDT Performed [...] 03/17/2021 3:32 EDT Electronically signed by Sivan, [facility] Conversion Loan Secretary Cerner at 02/04/2023 2:22 PM CDT documented in this encounter Plan of Treatment Not on file documented as of this encounter Visit Diagnoses Not on filedocumented in this encounter Care Teams Nurse Infection Control Relationship Specialty Start Date End Date Jay Howell MD [address] [place] [phone] PCP - General Emergency Medicine 11/12/23 documented as of this encounter
--- OUTSIDE RECORDS SUMMARY | 2025-10-13 13:27 | XMS_ITS | Encounter Summary ---
Author Organization [employer] ([place], [place], [place], [place], [place]) Address [address] [place] [address] Care Team Providers Care Scrap Preparer Name Role Phone Jay Howell MD Primary Care Provider [phone] Encounter Details Date Type Department Care Team (Late st Contact Info) Description 03/18/2021 Transcribed Document [facility] [place] [address] [place] [address] ProviderJessie MD [address] [place], [place] [address] Social History Tobacco Use Types Packs/Day Years [...] filedocumented in this encounter Care Teams Scrap Preparer Relationship Specialty Start Date End Date Jay Howell MD [address] [place] [phone] PCP - General Emergency Medicine 11/12/23 documented as of this encounter
--- OUTSIDE RECORDS SUMMARY | 2025-10-13 13:27 | XMS_ITS | Encounter Summary ---
Author Organization [employer] ([place], [place], [place], [place], [place]) Address [address] [place] [address] Care Team Providers Care Record Center Coordinator Name Role Phone Jay Howell MD Primary Care Provider [phone] Encounter Details Date Type Department Care Team (Late st Contact Info) Description 09/01/2020 Transcribed Document [facility] [place] Family Medicine [address] [place] [address] ProviderJessie MD [address] [place] [address] Social History Tobacco Use Types Packs/Day Years Used Date Smoking Tobacco: Never Assessed Comments Unknown Sex and Gender Information Value Date Recorded Sex Assigned at Not on file Legal Sex Female 7:30 PM CDT Gender Identity Not on file Sexual Orientation Not on file documented as of this encounter Miscellaneous Notes * Cerner Conversion Note - Jessie Yuen MD - 09/01/2020 10:55 AM DINKER Patient: SKYLER MONTOYA Age: 79 years Sex: [...] level of muscle per surgery *Operation RIGHT MANAGEMENT PLANNER access - ultrasound guided Aortogram with LEFT lower extremity run-off LEFT PT angioplasty ([id number] Nanocross) LEFT peroneal angioplasty ([id number] Nanocross) RIGHT MANAGEMENT PLANNER closure (Angioseal) LEFT leg debridement 09/01/20 probable [...] Results Found (Past 24 Hours) MICRO: ACC: [id number] ORDER: Culture Anaerobic DATE: 08/26/2020 13:56 SOURCE: Surgical Swab SITE: Leg Lower L Reports Final 08/31/2020 07:45 No Anaerobic growth Pre 08/28/2020 07:01 No Anaerobic growth Pre 08/27/2020 07:47 Culture in progress == ACC: [id number] ORDER: Culture Blood DATE: 08/25/2020 05:01 SOURCE: Blood SITE: Reports Final 08/30/2020 06:01 No growth at 5 days. Pre 08/29/2020 06:01 No growth at 4 days. Pre 08/28/2020 06:01 No growth at 3 days. Pre 08/27/2020 06:01 No growth at 2 days. Pre 08/26/2020 06:01 No growth at 1 day. Pre 08/25/2020 23:02 Culture less than 24 Hrs old == ACC: [id number] ORDER: Culture Blood DATE: 08/25/2020 05:01 SOURCE: Blood SITE: Reports Final 08/30/2020 06:01 No growth at 5 days. Pre 08/29/2020 06:02 No growth at 4 days. Pre 08/28/2020 06:01 No growth at 3 days. Pre 08/27/2020 06:01 No growth at 2 days. Pre 08/26/2020 06:01 No growth at 1 day. Pre 08/25/2020 23:02 Culture less than 24 Hrs old == ACC: [id number] ORDER: Culture Wound and Stain DATE: 08/26/2020 15:23 SOURCE: Surgical Swab SITE: Leg Lower L Reports Final 08/29/2020 08:29 No growth Pre 08/27/2020 07:14 No growth GS 08/26/2020 18:13 Few White Blood Cells No organisms seen. == ACC: [id number] ORDER: Culture Wound and Stain DATE: 08/25/2020 05:00 SOURCE: Wound SITE: Leg Lower L Reports Final 08/28/2020 08:57 No growth Pre 08/26/2020 06:23 No growth GS 08/25/2020 07:26 No organisms seen. Few White Blood Cells Rare epithelial cells == ACC: [id number] ORDER: Culture AFB and Stain DATE: 08/26/2020 13:56 SOURCE: Surgical Swab SITE: Leg Lower L Reports AFS 08/27/2020 13:07 No Acid Fast Bacilli seen == ACC: [id number] ORDER: Culture Fungus DATE: 08/26/2020 13:56 SOURCE: [...] wed in clinic Electronically signed by Sivan, [facility] Conversion Editing Intern Cerner at 02/04/2023 1:59 PM CDT documented in this encounter Plan of Treatment Not on file documented as of this encounter Visit Diagnoses Not on filedocumented in this encounter Care Teams Record Center Coordinator Relationship Specialty Start Date End Date Jay Howell MD [address] [place] [phone] PCP - General Emergency Medicine 11/12/23 documented as of this encounter
--- OUTSIDE RECORDS SUMMARY | 2025-10-13 13:27 | XMS_ITS | Encounter Summary ---
Author Organization [email or web address] ([place], [place], [place], [place], [place]) Address [address] [place] [address] Care Team Providers Care Furnace Combustion Analyst Name Role Phone Jay Howell MD Primary Care Provider [phone] Encounter Details Date Type Department Care Team (Late st Contact Info) Description 03/17/2021 Transcribed Document [facility] [place] Family Medicine [address] [place] [address] ProviderJessie MD [address] [place], [place] [address] Social History Tobacco Use Types Packs/Day Years [...] 03/17/2021 10:01 EDT by Krystina Giang V Instructor [employer] Felipe Initial Assessment I Legal Guardian : No Krystina Giang V Instructor [employer] Casino Surveillance Officer - 03/17/2021 14:24 EDT Previously Documented Living Environment : No qualifying data available. Living Situation : Home Patient Lives With : Spouse Employment/Vocation : retired Emergency Contact #1 : Leonardo Emergency Contact #1 Emergency Contact #1 Relationship : Son Emergency Contact #2 : Christian Emergency Contact #2 Emergency Contact #2 Relationship : Son Giang, Social Kayla Khoury [facility] 03/17/2021 10:01 EDT Enter Doctors Name : Krystina Welsh Social Worker [facility] 03/17/2021 14:24 EDT Does Patient have PCP Listed? : Yes Medical Durable Power of Resource Specialist Teacher Name : No Krystina Giang Social Worker [facility] 03/17/2021 10:01 EDT Initial Assessment II Sensory and Motor Deficits : Weakness Krystina Giang Social Worker [facility] 03/17/2021 10:01 EDT Current Home Treatments and Equipment : Bedside commode, CPAP, Shower chair, Walker, Wheelchair Krystina Giang Social Worker [facility] 03/17/2021 14:24 EDT Discharge Needs I Anticipated Discharge Date : 03/19/2021 EDT Anticipated Discharge To, CM : Home with home health Krystina Giang Social Worker [facility] 03/17/2021 14:24 EDT Current Home Treatment/Equipment : Current Home Treatment/Equipment No qualifying data available. Documentation Status Complete : Yes Krystina Giang Social Worker [facility] 03/17/2021 10:01 EDT Discharge Needs II Professional Skilled Services : Professional Skilled Services No qualifying data available. Needs Assistance with Transportation : No Discharge Options Discussed with Patient : Discharge transportation, DME, Home Health, Short term rehabilitation Krystina Giang Social Worker [facility] 03/17/2021 10:01 EDT Narrative Note Narrative Note : HD#1, ELOS-not reported, RRS-Moderate, Boost- 80 yo female admitted for syncopal episide. She fell and hit her head and suffered a right wrist fracture. Cardiology, Neurology, Orthopedics consults noted. She lives with her spouse. Independent with ADLs prior to admission. DME-walker, shower chair, BSC, cpap thru [facility] in [place]. No home 02. HHS in the past out of [place]. Denies rehab stays. DCP-Home with spouse. Possible HHPT/OT CM to follow Krystina Giang Social Worker [facility] - 03/17/2021 14:24 EDT Electronically signed by Sivan, [facility] Conversion Scheduler Conveyor Cerner at 02/04/2023 2:01 PM CDT documented in this encounter Plan of Treatment Not on file documented as of this encounter Visit Diagnoses Not on filedocumented in this encounter Care Teams Furnace Combustion Analyst Relationship Specialty Start Date End Date Jay Howell MD [address] [place] [phone] PCP - General Emergency Medicine 11/12/23 documented as of this encounter
--- OUTSIDE RECORDS SUMMARY | 2025-10-13 13:27 | XMS_ITS | Encounter Summary ---
Author Organization [employer] ([place], [place], [place], [place], [place]) Address [address] [place] [address] Care Team Providers Care Wholesale Agronomist Name Role Phone Jay Howell MD Primary Care Provider [phone] Encounter Details Date Type Department Care Team (Late st Contact Info) Description 09/22/2020 Transcribed Document [facility] [place] [address] [place] [address] ProviderJessie MD [address] [place] [phone] Social History Tobacco Use Types Packs/Day Years Used Date Smoking Tobacco: Never Assessed Comments Unknown Sex and Gender Information Value Date Recorded Sex Assigned at Not on file Legal Sex Female 7:30 PM CDT Gender Identity Not on file Sexual Orientation Not on file documented as of this encounter Miscellaneous Notes * Cerner Conversion Note - Jessie ProviderMD - 09/22/2020 4:56 PM BLOOD DONOR UNIT ASSISTANT Patient: SKYLER MONTOYA Age: 79 Years Sex: [...] present starting at the level of the PREPARATOR. Non significant, non-flow restricting plaque noted at common femoral artery. 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 There is a significant (50-75%) stenosis of the distal PREPARATOR. Non significant, non-flow restricting plaque noted at DPA. PREPARATOR & DPA non compressible for FERNIE. TBI: Non compressible. LEFT: Abnormal arterial runoff disease present starting at the level of the PREPARATOR. Non significant, non-flow restricting plaque noted at common femoral artery. There is a severe (>75%) stenosis of the distal PREPARATOR. PREPARATOR & DPA non compressible for FERNIE. TBI: Non compressible. documented in this encounter Plan of Treatment Not on file documented as of this encounter Visit Diagnoses Not on filedocumented in this encounter Care Teams Wholesale Agronomist Relationship Specialty Start Date End Date Jay Howell MD [address] [place] [phone] PCP - General Emergency Medicine 11/12/23 documented as of this encounter
--- OUTSIDE RECORDS SUMMARY | 2025-10-13 13:27 | XMS_ITS | Encounter Summary ---
Author Organization [employer] ([place], [place], [place], [place], [place]) Address [address] [place] [address] Care Team Providers Care Bin Worker Name Role Phone Jay Howell MD Primary Care Provider [phone] Encounter Details Date Type Department Care Team (Late st Contact Info) Description 03/17/2021 Transcribed Document [facility] Radiology [address] [place] [address] Samantha Guzman MD [facility] [place] [place] [address] Social History Tobacco Use Types Packs/Day Years [...] ortho)- right wrist fracture Consulting Physician - FRDEY YAÑEZ MD-CAR (Cardiology)- syncope Consulting Physician - [...] Vitamins oral tablet, 1 Tab, Oral, Daily [place] 7.5 mg-325 mg oral tablet, 1 Tab, [...] Lymph # 1.52 x10(3)/uL 03/16/2021 11:38 EDT Rice % 5.1 % 03/16/2021 11:38 EDT Rice # 0.50 K/uL 03/16/2021 11:38 EDT Eos [...] Appearance CLEAR2 03/16/2021 14:09 EDT Urine Specific Maynard 1.015 03/17/2021 04:10 EDT Urine Specific [place]nard 1.014 03/16/2021 14:09 EDT Urine pH Dipstick [...] [1] History and Physical; MARIA ELENA DAVALOS MD-[facility] 03/16/2021 17:39 EDT [2] CR Wrist Min 3 Vws RT; Roni Guerra, Vat Cleaner 03/16/2021 12:13 EDT documented in this encounter Plan of Treatment Not on file documented as of this encounter Visit Diagnoses Not on filedocumented in this encounter Care Teams Bin Worker Relationship Specialty Start Date End Date Jay Howell MD [address] [place] [phone] PCP - General Emergency Medicine 11/12/23 documented as of this encounter
--- OUTSIDE RECORDS SUMMARY | 2025-10-13 13:27 | XMS_ITS | Encounter Summary ---
Author Organization [employer] ([place], [place], [place], [place], [place]) Address [address] [place] [address] Care Team Providers Care Customer Data Technician Name Role Phone Jay Howell MD Primary Care Provider [phone] Encounter Details Date Type Department Care Team (Late st Contact Info) Description 08/29/2020 Transcribed Document [facility] [place] [address] [place] [address] ProviderJessie MD [address] [place] [phone] Social History Tobacco Use Types Packs/Day Years Used Date Smoking Tobacco: Never Assessed Comments Unknown Sex and Gender Information Value Date Recorded Sex Assigned at Not on file Legal Sex Female 7:30 PM CDT Gender Identity Not on file Sexual Orientation Not on file documented as of this encounter Miscellaneous Notes * Cerner Conversion Note - Jessie ProviderMD - 08/29/2020 12:42 PM PE MANAGER Patient: SKYLER MONTOYA Age: 79 Years [...] (High) 08/29/2020 01:38 EST Electronically signed by Gayle Finnegan Conversion Tunnel Elastic Operator Zigzag Cerner at 02/04/2023 2:06 PM CDT documented in this encounter Plan of Treatment Not on file documented as of this encounter Visit Diagnoses Not on filedocumented in this encounter Care Teams Customer Data Technician Relationship Specialty Start Date End Date Jay Howell MD [address] [place] [phone] PCP - General Emergency Medicine 11/12/23 documented as of this encounter
--- OUTSIDE RECORDS SUMMARY | 2025-10-13 13:27 | XMS_ITS | Encounter Summary ---
Author Organization [employer] ([place], [place], [place], [place], [place]) Address [address] [place] [address] Care Team Providers Care Gym Attendant Name Role Phone Jay Howell MD Primary Care Provider [phone] Encounter Details Date Type Department Care Team (Late st Contact Info) Description 08/25/2020 Transcribed Document [facility] [place] Family Medicine [address] [place] [address] ProviderJessie MD [address] [place] [address] Social History Tobacco Use Types Packs/Day Years Used Date Smoking Tobacco: Never Assessed Comments Unknown Sex and Gender Information Value Date Recorded Sex Assigned at Not on file Legal Sex Female 7:30 PM CDT Gender Identity Not on file Sexual Orientation Not on file documented as of this encounter Miscellaneous Notes * Cerner Conversion Note - Jessie Yuen MD - 08/25/2020 6:23 AM STENOTYPE MACHINE OPERATOR Patient: SKYLER MONTOYA Age: 79 [...] multiple stent placements. The patient presented to [facility] ER after recent fall with hematoma [...] Application, Topical, TID, 22 Gram, 0 Refill(s) [place] 7.5 mg-325 mg oral tablet: 1 Tab, [...] Problem list: Medical Arthritis / SNOMED CT 3665460 / Confirmed Atrial fibrillation with RVR / SNOMED CT 2965956596 / Confirmed Cataract / Patient Care / Confirmed Chest pain / SNOMED CT 98356708 / Complaint of COPD / SNOMED CT 85302216 / Confirmed Coronary artery disease / SNOMED CT 3202189445 / Confirmed Diabetes mellitus / SNOMED CT 683593962 / Confirmed GERD - Gastro-esophageal reflux disease / SNOMED CT 4909385164 / Confirmed Glaucoma / Patient Care / Confirmed Chronic anticoagulation / SNOMED CT 313208514 / Confirmed Hx of pulmonary embolus / SNOMED CT 784879123 / Confirmed High blood pressure / SNOMED CT 02916091 / Confirmed History of obstructive sleep apnea / IMO 99982395 / Confirmed Hyperlipidemia / SNOMED CT 23255747 / Confirmed Multiple renal cysts / SNOMED CT 945680792 / Confirmed Emphysema / SNOMED CT 877545630 / Confirmed Apnea, sleep / SNOMED CT 945166006 / Confirmed Stented coronary artery / SNOMED CT 3505281384 / Confirmed UTI - Urinary tract infection / SNOMED CT 3361793712 / Confirmed, Active Problems (21) Apnea, sleep [...] History: Active Cataract Glaucoma Coronary artery disease (5836552166) Stented coronary artery (1449970124) High blood pressure (27780071) Hyperlipidemia (67326191) COPD (42082018) GERD - Gastro-esophageal reflux disease (1710244292) Multiple renal cysts (365745938) UTI - Urinary tract infection (4967546092) Arthritis (1433901) Diabetes mellitus (997346290) Emphysema (983927382) Apnea, sleep (175697374) Hx of pulmonary embolus (812047320) Chronic anticoagulation (864895687) Atrial fibrillation with RVR (2211382626) Family History: Cardiomyopathy Child Stroke Brother Heart attack Brother Sister Leukemia Child Cancer Father Mother Sister Coronary heart disease Child , Significant for hypertension Procedure history: Cardiac Stent in 2010 at 70 Years. Cardiac Stent on 01/30/2008 at 67 Years. Comments: 06/13/2020 8:52 THERESET - EVA WESLEY RN PCI w/ [place] stent to D1 Coronary artery bypass graft ([id number]) in 1992 at 52 Years. femur repair. Appendectomy (317007922). uterine suspension. Hysterectomy (951165768). back surgury. Cholecystectomy (14449257). Hip replacement (6794629847). cataract surgury. Social History Social & Psychosocial [...] TIME SPENT : 45 minutes in evaluation Electronically signed by Gayle Finnegan Conversion Gasoline Power Shovel Operator Cerner at 02/04/2023 1:57 PM CDT documented in this encounter Plan of Treatment Not on file documented as of this encounter Visit Diagnoses Not on filedocumented in this encounter Care Teams Gym Attendant Relationship Specialty Start Date End Date Jay Howell MD [address] [place] [phone] PCP - General Emergency Medicine 11/12/23 documented as of this encounter
--- OUTSIDE RECORDS SUMMARY | 2025-10-13 13:27 | XMS_ITS | Encounter Summary ---
Author Organization [employer] ([place], [place], [place], [place], [place]) Address [address] [place] [address] Care Team Providers Care Barrel Cooper Name Role Phone Jay Howell MD Primary Care Provider [phone] Encounter Details Date Type Department Care Team (Late st Contact Info) Description 08/29/2020 Transcribed Document [facility] [place] [address] [place] [address] ProviderJessie MD [address] [place] [phone] Social History Tobacco Use Types Packs/Day Years Used Date Smoking Tobacco: Never Assessed Comments Unknown Sex and Gender Information Value Date Recorded Sex Assigned at Not on file Legal Sex Female 7:30 PM CDT Gender Identity Not on file Sexual Orientation Not on file documented as of this encounter Miscellaneous Notes * Cerner Conversion Note - Jessie ProviderMD - 08/29/2020 1:45 PM JUNIOR SYSTEMS ANALYST RX Interventions Entered On: 08/29/2020 15:05 EST [...] Order, Time : 10 Minute(s) SLICK BRADLEY, [facility] - 08/29/2020 15:03 EST Electronically signed by [facility] Conversion Dial Brusher Cerner at 02/04/2023 2:17 PM CDT documented in this encounter Plan of Treatment Not on file documented as of this encounter Visit Diagnoses Not on filedocumented in this encounter Care Teams Barrel Cooper Relationship Specialty Start Date End Date Jay Howell MD [address] [place] [phone] PCP - General Emergency Medicine 11/12/23 documented as of this encounter
--- OUTSIDE RECORDS SUMMARY | 2025-10-13 13:27 | XMS_ITS | Encounter Summary ---
Author Organization [employer] ([place], [place], [place], [place], [place]) Address [address] [place] [address] Care Team Providers Care Instant Potato Processor Name Role Phone Jay Howell MD Primary Care Provider [phone] Encounter Details Date Type Department Care Team (Late st Contact Info) Description 08/31/2020 Transcribed Document [facility] [place] Medicine [address] [place] [address] ProviderJessie MD [address] [place] [address] Social History Tobacco Use Types Packs/Day Years Used Date Smoking Tobacco: Never Assessed Comments Unknown Sex and Gender Information Value Date Recorded Sex Assigned at Not on file Legal Sex Female 7:30 PM CDT Gender Identity Not on file Sexual Orientation Not on file documented as of this encounter Miscellaneous Notes * Cerner Conversion Note - Jessie Yuen MD - 08/31/2020 8:[address] SECURITY Patient: SKYLER MONTOYA Age: 79 years Sex: [...] for this consult, Miladys Lopez, KellD PGY-1 Advanced Practice Registered Nurse Pager #: [phone] Extension #: [phone] Electronically signed by [facility], [facility] Conversion Pulpit Operator Cerner at 02/04/2023 2:02 PM CDT documented in this encounter Plan of Treatment Not on file documented as of this encounter Visit Diagnoses Not on filedocumented in this encounter Care Teams Instant Potato Processor Relationship Specialty Start Date End Date Jay Howell MD [address] [place] [phone] PCP - General Emergency Medicine 11/12/23 documented as of this encounter
--- OUTSIDE RECORDS SUMMARY | 2025-10-13 13:27 | XMS_ITS | Encounter Summary ---
Author Organization [employer] ([place], [place], [place], [place], [place]) Address [address] [place] [address] Care Team Providers Care Rug Layer Name Role Phone Jay Howell MD Primary Care Provider [phone] Encounter Details Date Type Department Care Team (Late st Contact Info) Description 09/01/2020 Transcribed Document [facility] [place] [address] [place] [address] ProviderJessie MD [address] [place] [address] [phone] Social History Tobacco Use Types Packs/Day Years Used Date Smoking Tobacco: Never Assessed Comments Unknown Sex and Gender Information Value Date Recorded Sex Assigned at Not on file Legal Sex Female 7:30 PM CDT Gender Identity Not on file Sexual Orientation Not on file documented as of this encounter Miscellaneous Notes * Cerner Conversion Note - Jessie ProviderMD - 09/01/2020 1:18 PM RADIOLOGY TECH On Going Discharge Planning Entered On: 09/01/2020 13:19 EST Performed On: 09/01/2020 13:18 EST by KAVITA PELLETIER RN-Ammunition Storage SuperintendentRn Post Partum Progress Note Discharge Arrangements : Patient Post-Acute Information Patient Name: SKYLER MONTOYA Gender: Female : [birth year] Age: 79 Years [place] Referral(s): Service: Organization: Business Address: Phone Number: [address] [place], [address] Discharge Options Discussed with [...] Attend Multidisciplinary Rounds? : Yes KAVITA PELLETIER RN-Ammunition Storage Superintendent - 09/01/2020 13:18 EST Electronically signed by [facility], [facility] Conversion Flame Channeler Cerner at 02/04/2023 2:00 PM CDT documented in this encounter Plan of Treatment Not on file documented as of this encounter Visit Diagnoses Not on filedocumented in this encounter Care Teams Rug Layer Relationship Specialty Start Date End Date Jay Howell MD [address] [place] [phone] PCP - General Emergency Medicine 11/12/23 documented as of this encounter
--- OUTSIDE RECORDS SUMMARY | 2025-10-13 13:27 | XMS_ITS | Encounter Summary ---
Author Organization [employer] ([place], [place], [place], [place], [place]) Address [address] [place] [address] Care Team Providers Care Director Sales Support Name Role Phone Jay Howell MD Primary Care Provider [phone] Encounter Details Date Type Department Care Team (Late st Contact Info) Description 09/08/2020 Transcribed Document [facility] [place] [address] [place] [address] ProviderJessie MD [address] [place] [address] [phone] Social History Tobacco Use Types Packs/Day Years Used Date Smoking Tobacco: Never Assessed Comments Unknown Sex and Gender Information Value Date Recorded Sex Assigned at Not on file Legal Sex Female 7:30 PM CDT Gender Identity Not on file Sexual Orientation Not on file documented as of this encounter Miscellaneous Notes * Cerner Conversion Note - Jessie Yuen MD - 09/08/2020 5:17 PM EMERGENCY CARE TECH Patient: SKYLER MONTOYA Age: 79 Years Sex: Female : 1940 Reason for Consultation LEFT LE wound History of Present Illness Ms. Montoya is an 79 year-old female who [facility] for [facility]/u after recent hospitalization. She has [...] Provider Information Primary Care Physician - TARA CEHN (REF), -MED Attending Physician - VITA SWEET PA Admitting Physician - VITA SWEET PA Referring Physician - VITA SWEET PA Problem List/Past Medical History HTN HLD CAD A-FIB on Coumadin COPD DM GERD h/o sleep apnea h/o PE Procedure/Surgical History 08/26/2020 (Mehreen; GENESIS) - Aortogram with LEFT lower extremity run-off - LEFT PT angioplasty (2.5-1y163bj Nanocross) - LEFT peroneal angioplasty (2.5-3x820uf Nanocross) - LEFT leg debridement Other: - [...] No labs to review Electronically signed by [facility] Conversion Aluminum Sheet Cutter Cerner at 02/04/2023 1:55 PM CDT documented in this encounter Plan of Treatment Not on file documented as of this encounter Visit Diagnoses Not on filedocumented in this encounter Care Teams Director Sales Support Relationship Specialty Start Date End Date Jay Howell MD [address] [place] [phone] PCP - General Emergency Medicine 11/12/23 documented as of this encounter
--- OUTSIDE RECORDS SUMMARY | 2025-10-13 13:27 | XMS_ITS | Encounter Summary ---
Author Organization [employer] ([place], [place], [place], [place], [place]) Address [address] [place] [address] Care Team Providers Care Labor Arbitrator Name Role Phone Jay Howell MD Primary Care Provider [phone] Encounter Details Date Type Department Care Team (Late st Contact Info) Description 08/30/2020 Transcribed Document [facility] [place] [address] [place] [address] ProviderJessie MD [address] [place] [address] Social History Tobacco Use Types Packs/Day Years Used Date Smoking Tobacco: Never Assessed Comments Unknown Sex and Gender Information Value Date Recorded Sex Assigned at Not on file Legal Sex Female 7:30 PM CDT Gender Identity Not on file Sexual Orientation Not on file documented as of this encounter Miscellaneous Notes * Cerner Conversion Note - Jessie Yuen MD - 08/30/2020 9:36 AM BULL FIDDLE PLAYER Patient: SKYLER MONTOYA Age: 79 years Sex: [...] [place] office goal INR/PT, 2.5-3.[address] Moleler) Monitor for S&S of bleeding, H&H stable over last several days. Heparin gtt started per attending as bridge therapy, NO BOLUS. Thank you for this consult, Miladys Lopez, KellD PGY-1 Supervisor Quality Control Pager #: [phone] Extension #: [phone] Electronically signed by Sivan, [facility] Conversion Condenser Operator Cerner at 02/04/2023 2:03 PM CDT documented in this encounter Plan of Treatment Not on file documented as of this encounter Visit Diagnoses Not on filedocumented in this encounter Care Teams Labor Arbitrator Relationship Specialty Start Date End Date Jay Howell MD [address] [place] [phone] PCP - General Emergency Medicine 1/27/24 documented as of this encounter
--- OUTSIDE RECORDS SUMMARY | 2025-10-13 13:27 | XMS_ITS | Encounter Summary ---
Author Organization [employer] ([place], [place], [place], [place], [place]) Address [address] [place] [address] Care Team Providers Care Press Tool Maker Name Role Phone Jay Howell MD Primary Care Provider [phone] Encounter Details Date Type Department Care Team (Late st Contact Info) Description 08/26/2020 Transcribed Document [facility] [place] [address] [place] [address] ProviderJessie MD [address] [place] [address] [phone] Social History Tobacco Use Types Packs/Day Years Used Date Smoking Tobacco: Never Assessed Comments Unknown Sex and Gender Information Value Date Recorded Sex Assigned at Not on file Legal Sex Female 7:30 PM CDT Gender Identity Not on file Sexual Orientation Not on file documented as of this encounter Miscellaneous Notes * Cerner Conversion Note - Historical ProviderMD - 08/26/2020 11:38 AM DESIGNER AND PATTERNMAKER Event Note Entered On: 08/26/2020 11:38 EST Performed On: 08/26/2020 11:38 EST by CARLTON GUTIERREZ Event Note Event Date/Time : 08/26/2020 11:15 EST Event Location : [place] Event Details : Other: Description of Event : 1115: [facility] PT 25 INR 2.4 CARLTON GUTIERREZ - 08/26/2020 11:38 EST Electronically signed by Sivan [facility] Conversion Materials Development Engineer Cerner at 02/04/2023 2:15 PM CDT documented in this encounter Plan of Treatment Not on file documented as of this encounter Visit Diagnoses Not on filedocumented in this encounter Care Teams Press Tool Maker Relationship Specialty Start Date End Date Jay Howell MD [address] [place] [phone] PCP - General Emergency Medicine 11/12/23 documented as of this encounter
--- OUTSIDE RECORDS SUMMARY | 2025-10-13 13:27 | XMS_ITS | Encounter Summary ---
Author Organization [employer] ([place], [place], [place], [place], [place]) Address [address] [place] [address] Care Team Providers Care Geology Scientist Name Role Phone Jay Howell MD Primary Care Provider [phone] Encounter Details Date Type Department Care Team (Late st Contact Info) Description 03/19/2021 Transcribed Document [facility] [place] [address] [place] [address] ProviderJessie MD [address] [place], [place] [phone] Social History Tobacco Use Types Packs/Day Years [...] these instructions at home: Medicines ??? Take pfsk-lnu-bzihxbm and prescription medicines only as told by [...] provider. Document Revised: 01/25/2020 Document Reviewed: 08/22/2019 [employer] Patient Education ? 2019 [employer]. Orthopedics Cast or Splint Care, Adult Casts [...] activities are safe for you. ??? Take kbye-mph-kwiskau and prescription medicines only as told by [...] provider. Document Revised: 07/31/2018 Document Reviewed: 03/26/2017 [employer] Patient Education ? 2020 [employer]. documented in this encounter Plan of Treatment Not on file documented as of this encounter Visit Diagnoses Not on filedocumented in this encounter Care Teams Geology Scientist Relationship Specialty Start Date End Date Jay Howell MD [address] [place] [phone] PCP - General Emergency Medicine 11/12/23 documented as of this encounter
--- OUTSIDE RECORDS SUMMARY | 2025-10-13 13:27 | XMS_ITS | Encounter Summary ---
Author Organization [employer] ([place], [place], [place], [place], [place]) Address [address] [place] [address] Care Team Providers Care Excelsior Cutter Name Role Phone Jay Howell MD Primary Care Provider [phone] Encounter Details Date Type Department Care Team (Late st Contact Info) Description 08/25/2020 Transcribed Document [facility] [place] Family Medicine [address] [place] [address] ProviderJessie MD [address] [place] [address] [phone] Social History Tobacco Use Types Packs/Day Years Used Date Smoking Tobacco: Never Assessed Comments Unknown Sex and Gender Information Value Date Recorded Sex Assigned at Not on file Legal Sex Female 7:30 PM CDT Gender Identity Not on file Sexual Orientation Not on file documented as of this encounter Miscellaneous Notes * Cerner Conversion Note - Jessie ProviderMD - 08/25/2020 5:06 PM COMMUNITY RECREATION PROGRAMMER Meds to Bed Enrollment Entered On: 08/26/2020 [...] on filedocumented in this encounter Care Teams Excelsior Cutter Relationship Specialty Start Date End Date Jay Howell MD [address] [place] [phone] PCP - General Emergency Medicine 11/12/23 documented as of this encounter
--- OUTSIDE RECORDS SUMMARY | 2025-10-13 13:27 | XMS_ITS | Encounter Summary ---
Author Organization [employer] ([place], [place], [place], [place], [place]) Address [address] [place] [address] Care Team Providers Care Second Facing Baster Name Role Phone Jay Howell MD Primary Care Provider [phone] Encounter Details Date Type Department Care Team (Late st Contact Info) Description 08/29/2020 Transcribed Document [facility] [place] [address] [place] [address] ProviderJessie MD [address] [place] [address] [phone] Social History Tobacco Use Types Packs/Day Years Used Date Smoking Tobacco: Never Assessed Comments Unknown Sex and Gender Information Value Date Recorded Sex Assigned at Not on file Legal Sex Female 7:30 PM CDT Gender Identity Not on file Sexual Orientation Not on file documented as of this encounter Miscellaneous Notes * Cerner Conversion Note - Jessie ProviderMD - 08/29/2020 2:50 PM COMMERCIAL AIRPLANE PILOT WOCN Inpatient Documentation Entered On: 08/29/2020 14:52 [...] Ulcer WOCN Wound Pressure Ulcer Documentation : Pqrgzckog-Oeiznp-Afql Abnormality: Leg Left Lower, Anterior on 08/29/2020 [...] on filedocumented in this encounter Care Teams Second Facing Baster Relationship Specialty Start Date End Date Jay Howell MD [address] [place] [phone] PCP - General Emergency Medicine 11/12/23 documented as of this encounter
--- OUTSIDE RECORDS SUMMARY | 2025-10-13 13:27 | XMS_ITS | Encounter Summary ---
Author Organization [employer] ([place], [place], [place], [place], [place]) Address [address] [place] [address] Care Team Providers Care Space Engineer Name Role Phone Jay Howell MD Primary Care Provider [phone] Encounter Details Date Type Department Care Team (Late st Contact Info) Description 03/19/2021 Transcribed Document [facility] [place] Family Medicine [address] [place] [address] ProviderJessie MD [address] [place], [place] 214351 Social History Tobacco Use Types Packs/Day Years [...] on filedocumented in this encounter Care Teams Space Engineer Relationship Specialty Start Date End Date Jay Howell MD [address] [place] [phone] PCP - General Emergency Medicine 11/12/23 documented as of this encounter
--- OUTSIDE RECORDS SUMMARY | 2025-10-13 13:27 | XMS_ITS | Encounter Summary ---
Author Organization [employer] ([place], [place], [place], [place], [place]) Address [address] [place] [address] Care Team Providers Care Fire Extinguisher Inspector Name Role Phone Jay Howell MD Primary Care Provider [phone] Encounter Details Date Type Department Care Team (Late st Contact Info) Description 08/31/2020 Transcribed Document [facility] [place] [address] [place] [address] ProviderJessie MD [address] [place] [address] Social History Tobacco Use Types Packs/Day Years Used Date Smoking Tobacco: Never Assessed Comments Unknown Sex and Gender Information Value Date Recorded Sex Assigned at Not on file Legal Sex Female 7:30 PM CDT Gender Identity Not on file Sexual Orientation Not on file documented as of this encounter Miscellaneous Notes * Cerner Conversion Note - Jessie Yuen MD - 08/31/2020 10:44 AM MOTOR VEHICLES SUPERVISOR Patient: SKYLER MONTOYA Age: 79 years [...] level of muscle per surgery *Operation RIGHT HEDDLER access - ultrasound guided Aortogram with LEFT lower extremity run-off LEFT PT angioplasty (2.5-9j844af Nanocross) LEFT peroneal angioplasty (2.5-7m039nf Nanocross) RIGHT HEDDLER closure (Angioseal) LEFT leg debridement 08/31/20 seen [...] Level 3.8 mmol/L 08/30/2020 04:13 MICRO: ACC: [id number] ORDER: Culture Anaerobic DATE: 08/26/2020 13:56 SOURCE: Surgical Swab SITE: Leg Lower L Reports Final 08/31/2020 07:45 No Anaerobic growth Pre 08/28/2020 07:01 No Anaerobic growth Pre 08/27/2020 07:47 Culture in progress == ACC: [id number] ORDER: Culture Blood DATE: 08/25/2020 05:01 SOURCE: Blood SITE: Reports Final 08/30/2020 06:01 No growth at 5 days. Pre 08/29/2020 06:01 No growth at 4 days. Pre 08/28/2020 06:01 No growth at 3 days. Pre 08/27/2020 06:01 No growth at 2 days. Pre 08/26/2020 06:01 No growth at 1 day. Pre 08/25/2020 23:02 Culture less than 24 Hrs old == ACC: [id number] ORDER: Culture Blood DATE: 08/25/2020 05:01 SOURCE: Blood SITE: Reports Final 08/30/2020 06:01 No growth at 5 days. Pre 08/29/2020 06:02 No growth at 4 days. Pre 08/28/2020 06:01 No growth at 3 days. Pre 08/27/2020 06:01 No growth at 2 days. Pre 08/26/2020 06:01 No growth at 1 day. Pre 08/25/2020 23:02 Culture less than 24 Hrs old == ACC: [id number] ORDER: Culture Wound and Stain DATE: 08/26/2020 15:23 SOURCE: Surgical Swab SITE: Leg Lower L Reports Final 08/29/2020 08:29 No growth Pre 08/27/2020 07:14 No growth GS 08/26/2020 18:13 Few White Blood Cells No organisms seen. == ACC: [id number] ORDER: Culture Wound and Stain DATE: 08/25/2020 05:00 SOURCE: Wound SITE: Leg Lower L Reports Final 08/28/2020 08:57 No growth Pre 08/26/2020 06:23 No growth GS 08/25/2020 07:26 No organisms seen. Few White Blood Cells Rare epithelial cells == ACC: [id number] ORDER: Culture AFB and Stain DATE: 08/26/2020 13:56 SOURCE: Surgical Swab SITE: Leg Lower L Reports AFS 08/27/2020 13:07 No Acid Fast Bacilli seen == ACC: [id number] ORDER: Culture Fungus DATE: 08/26/2020 13:56 SOURCE: [...] filedocumented in this encounter Care Teams Fire Extinguisher Inspector Relationship Specialty Start Date End Date Jay Howell MD [address] [place] [phone] PCP - General Emergency Medicine 11/12/23 documented as of this encounter
--- OUTSIDE RECORDS SUMMARY | 2025-10-13 13:27 | XMS_ITS | Encounter Summary ---
Author Organization [employer] ([place], [place], [place], [place], [place]) Address [address] [place] [address] Care Team Providers Care Medical Pathologist Name Role Phone Jay Howell MD Primary Care Provider [phone] Encounter Details Date Type Department Care Team (Late st Contact Info) Description 03/18/2021 Transcribed Document [facility] Cardiology [address] [place], [place] [phone] Jorje Benítez MD [address] [place] [address] [address] [place] [address] Social History Tobacco Use Types Packs/Day Years [...] None Author: JORJE BENÍTEZ MD-CAR Basic Information Operations Support Representative: Dr. Adry [place] Subjective NAD Health Status [...] Vitamins oral tablet 1 Tab, Oral, Daily [place] 7.5 mg-325 mg oral tablet 1 Tab, [...] 03/17/2021 04:45 Radiology Results (Last 48 hours) [id number] -- 03/17/2021 13:59 CR Hip Uni Comp [...] filedocumented in this encounter Care Teams Medical Pathologist Relationship Specialty Start Date End Date Jay Howell MD [address] [place] [phone] PCP - General Emergency Medicine 11/12/23 documented as of this encounter
--- OUTSIDE RECORDS SUMMARY | 2025-10-13 13:27 | XMS_ITS | Encounter Summary ---
Author Organization [employer] ([place], [place], [place], [place], [place]) Address [address] [place] [address] Care Team Providers Care Salesperson Burial Needs Name Role Phone Jay Howell MD Primary Care Provider [phone] Encounter Details Date Type Department Care Team (Late st Contact Info) Description 03/17/2021 Transcribed Document [facility] [place] [address] [place] [address] ProviderJessie MD [address] [place], [place] [address]641 Social History Tobacco Use Types Packs/Day Years [...] the form. Electronically signed by Sivan, [facility] Conversion Clinical Science Liaison Cerner at 02/04/2023 2:00 PM CDT documented in this encounter Plan of Treatment Not on file documented as of this encounter Visit Diagnoses Not on filedocumented in this encounter Care Teams Salesperson Burial Needs Relationship Specialty Start Date End Date Jay Howell MD [address] [place] [phone] PCP - General Emergency Medicine 11/12/23 documented as of this encounter
--- OUTSIDE RECORDS SUMMARY | 2025-10-13 13:27 | XMS_ITS | Encounter Summary ---
Author Organization [employer] ([place], [place], [place], [place], [place]) Address [address] [place] [address] Care Team Providers Care Instrument Specialist Name Role Phone Jay Howell MD Primary Care Provider [phone] Encounter Details Date Type Department Care Team (Late st Contact Info) Description 08/25/2020 Transcribed Document [facility] [place] Family Medicine [address] [place] [address] ProviderJessie MD [address] [place] [address] [phone] Social History Tobacco Use Types Packs/Day Years Used Date Smoking Tobacco: Never Assessed Comments Unknown Sex and Gender Information Value Date Recorded Sex Assigned at Not on file Legal Sex Female 7:30 PM CDT Gender Identity Not on file Sexual Orientation Not on file documented as of this encounter Miscellaneous Notes * Cerner Conversion Note - Jessie Yuen MD - 08/25/2020 7:20 AM GHOST WRITER Patient: SKYLER MONTOYA Age: 79 years [...] multiple stent placements. The patient presented to [facility] ER after recent fall with hematoma [...] with her . She has a strong rastafari treasure. She alex like to stay Full [...] on filedocumented in this encounter Care Teams Instrument Specialist Relationship Specialty Start Date End Date Jay Howell MD [address] [place] [phone] PCP - General Emergency Medicine 11/12/23 documented as of this encounter
--- OUTSIDE RECORDS SUMMARY | 2025-10-13 13:27 | XMS_ITS | Encounter Summary ---
Author Organization [employer] ([place], [place], [place], [place], [place]) Address [address] [place] [address] Care Team Providers Care Institutional Nutrition Consultant Name Role Phone Jay Howell MD Primary Care Provider [phone] Encounter Details Date Type Department Care Team (Late st Contact Info) Description 03/18/2021 Transcribed Document [facility] [place] Family Medicine [address] [place] [address] ProviderJessie MD [address] [place], [place] [address]301 Social History Tobacco Use Types Packs/Day Years [...] 03/18/2021 15:01 EDT by Krystina Giang V, Rail Walker Statistical Developer Care Management Progress Note Discharge Arrangements : [...] Multidisciplinary Rounds? : Yes Krystina Giang V Rail Walker [facility] [place] - 03/18/2021 15:01 EDT [...] to follow dc plan Krystina Giang V Rail Walker [facility] [place] - 03/18/2021 15:01 EDT Electronically signed by Sivan [facility] Conversion Job Printer Cerner at 02/04/2023 1:55 PM CDT documented in this encounter Plan of Treatment Not on file documented as of this encounter Visit Diagnoses Not on filedocumented in this encounter Care Teams Institutional Nutrition Consultant Relationship Specialty Start Date End Date Jay Howell MD [address] [place] [phone] PCP - General Emergency Medicine 11/12/23 documented as of this encounter
--- OUTSIDE RECORDS SUMMARY | 2025-10-13 13:27 | XMS_ITS | Encounter Summary ---
Author Organization [employer] ([place], [place], [place], [place], [place]) Address [address] [place] [address] Care Team Providers Care Hand Embroiderer Name Role Phone Jay Howell MD Primary Care Provider [phone] Encounter Details Date Type Department Care Team (Late st Contact Info) Description 03/17/2021 Transcribed Document [facility] [place] [address] [place] [address] ProviderJessie MD [address] [place], [place] [address]641 Social History Tobacco Use Types Packs/Day Years [...] Lymph # 1.52 x10(3)/uL 03/16/2021 11:38 EDT [place] % 5.1 % 03/16/2021 11:38 EDT [place] # 0.50 K/uL 03/16/2021 11:38 EDT Eos [...] Appearance CLEAR2 03/16/2021 14:09 EDT Urine Specific [place] 1.015 03/17/2021 04:10 EDT Urine Specific [place] 1.014 03/16/2021 14:09 EDT Urine pH Dipstick [...] filedocumented in this encounter Care Teams Hand Embroiderer Relationship Specialty Start Date End Date Jay Howell MD [address] [place] [phone] PCP - General Emergency Medicine 11/12/23 documented as of this encounter
--- OUTSIDE RECORDS SUMMARY | 2025-10-13 13:27 | XMS_ITS | Encounter Summary ---
Author Organization [employer] ([place], [place], [place], [place], [place]) Address [address] [place] [address] Care Team Providers Care Acid Mixer Name Role Phone Jay Howlel MD Primary Care Provider [phone] Encounter Details Date Type Department Care Team (Late st Contact Info) Description 08/25/2020 Transcribed Document [facility] [place] [address] [place] [address] ProviderJessie MD [address] [place] [phone] Social History Tobacco Use Types Packs/Day Years Used Date Smoking Tobacco: Never Assessed Comments Unknown Sex and Gender Information Value Date Recorded Sex Assigned at Not on file Legal Sex Female 7:30 PM CDT Gender Identity Not on file Sexual Orientation Not on file documented as of this encounter Miscellaneous Notes * Cerner Conversion Note - Jessie ProviderMD - 08/25/2020 8:09 AM BROKERAGE MANAGER ED Event Note Entered On: 08/25/2020 [...] 08/25/2020 8:09 EST Electronically signed by Sivan [facility] Conversion Slat Basket Maker Helper Cerner at 02/04/2023 2:06 PM CDT documented in this encounter Plan of Treatment Not on file documented as of this encounter Visit Diagnoses Not on filedocumented in this encounter Care Teams Acid Mixer Relationship Specialty Start Date End Date Jay Howell MD [address] [place] [phone] PCP - General Emergency Medicine 11/12/23 documented as of this encounter
--- OUTSIDE RECORDS SUMMARY | 2025-10-13 13:27 | XMS_ITS | Encounter Summary ---
Author Organization [employer] ([place], [place], [place], [place], [place]) Address [address] [place] [address] Care Team Providers Care Smoke Jumper Name Role Phone Jay Howell MD Primary Care Provider [phone] Encounter Details Date Type Department Care Team (Late st Contact Info) Description 08/25/2020 Transcribed Document [facility] [place] [address] [place] [address] ProviderJessie MD [address] [place] [address] Social History Tobacco Use Types Packs/Day Years Used Date Smoking Tobacco: Never Assessed Comments Unknown Sex and Gender Information Value Date Recorded Sex Assigned at Not on file Legal Sex Female 7:30 PM CDT Gender Identity Not on file Sexual Orientation Not on file documented as of this encounter Miscellaneous Notes * Cerner Conversion Note - Jessie Yuen MD - 08/25/2020 7:28 AM ACCOUNTS RECEIVABLE ASSOCIATE [facility] Inpatient Documentation Entered On: 08/25/2020 15:46 [...] 08/25/2020 15:46 EST Electronically signed by Sivan [facility] Conversion Special Agent In Charge Cerner at 02/04/2023 2:08 PM CDT documented in this encounter Plan of Treatment Not on file documented as of this encounter Visit Diagnoses Not on filedocumented in this encounter Care Teams Smoke Jumper Relationship Specialty Start Date End Date Jay Howell MD [address] [place] [phone] PCP - General Emergency Medicine 11/12/23 documented as of this encounter
--- OUTSIDE RECORDS SUMMARY | 2025-10-13 13:27 | XMS_ITS | Encounter Summary ---
Author Organization [employer] ([place], [place], [place], [place], [place]) Address [address] [place] [address] Care Team Providers Care Hostess Name Role Phone Jay Howell MD Primary Care Provider [phone] Encounter Details Date Type Department Care Team (Late st Contact Info) Description 08/25/2020 Transcribed Document [facility] [place] [address] [place] [address] ProviderJessie MD [address] [place] [address] [phone] Social History Tobacco Use Types Packs/Day Years Used Date Smoking Tobacco: Never Assessed Comments Unknown Sex and Gender Information Value Date Recorded Sex Assigned at Not on file Legal Sex Female 7:30 PM CDT Gender Identity Not on file Sexual Orientation Not on file documented as of this encounter Miscellaneous Notes * Cerner Conversion Note - Jessie ProviderMD - 08/25/2020 1:02 PM GENERATION ENGINEERING TECHNOLOGIST Patient: SKYLER MONTOYA Age: 79 years Sex: [...] Dr. Avtar Moeller Electronically signed by Sivan, [facility] Conversion Director Sales Cerner at 02/04/2023 2:06 PM CDT documented in this encounter Plan of Treatment Not on file documented as of this encounter Visit Diagnoses Not on filedocumented in this encounter Care Teams Hostess Relationship Specialty Start Date End Date Jay Howell MD [address] [place] [phone] PCP - General Emergency Medicine 11/12/23 documented as of this encounter
--- OUTSIDE RECORDS SUMMARY | 2025-10-13 13:27 | XMS_ITS | Encounter Summary ---
Author Organization [employer] ([place], [place], [place], [place], [place]) Address [address] [place] [address] Care Team Providers Care Sheet Finisher Name Role Phone Jay Howell MD Primary Care Provider [phone] Encounter Details Date Type Department Care Team (Late st Contact Info) Description 03/17/2021 Transcribed Document [facility] [place] [address] [place] [address] ProviderJessie MD [address] [place], [place] [phone] Social History Tobacco Use Types Packs/Day Years [...] on filedocumented in this encounter Care Teams Sheet Finisher Relationship Specialty Start Date End Date Jay Howell MD [address] [place] [phone] PCP - General Emergency Medicine 11/12/23 documented as of this encounter
--- OUTSIDE RECORDS SUMMARY | 2025-10-13 13:27 | XMS_ITS | Encounter Summary ---
Author Organization [employer] ([place], [place], [place], [place], [place]) Address [address] [place] [address] Care Team Providers Care Deportation Examiner Name Role Phone Jay Howell MD Primary Care Provider [phone] Encounter Details Date Type Department Care Team (Late st Contact Info) Description 03/17/2021 Transcribed Document [facility] [place] [address] [place] [address] ProviderJessie MD [address] [place], [place] 409661 Social History Tobacco Use Types Packs/Day Years [...] pain. SOCIAL HISTORY: The patient lives in [place] with her . She has 3 children, 2 of whom are living. 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 She still drives and walks independently. FAMILY [...] are 0 to 1+. Coordination shows intact [id number] on the left and [id number] on both sides. Gait was not tested. [...] her . I will follow with you. /[id number] Arron Clarke MD WSB/AQ / WSB / MODL /[id number] Electronically signed by Sivan [facility] Conversion Surgical Lead Cerner at 02/04/2023 2:15 PM CDT documented in this encounter Plan of Treatment Not on file documented as of this encounter Visit Diagnoses Not on filedocumented in this encounter Care Teams Deportation Examiner Relationship Specialty Start Date End Date Jay Howell MD [address] [place] [phone] PCP - General Emergency Medicine 11/12/23 documented as of this encounter
--- OUTSIDE RECORDS SUMMARY | 2025-10-13 13:27 | XMS_ITS | Encounter Summary ---
Author Organization [employer] ([place], [place], [place], [place], [place]) Address [address] [place] [address] Care Team Providers Care Protective Signal Superintendent Name Role Phone Jay Howell MD Primary Care Provider [phone] Encounter Details Date Type Department Care Team (Late st Contact Info) Description 03/17/2021 Transcribed Document [facility] [place] Medicine [address] [place] [address] ProviderJessie MD [address] [place], [place] [phone] Social History Tobacco Use Types Packs/Day Years [...] PHYSICAL THERAPIST NON-EXEMPT - 03/18/2021 12:18 EDT Intermediate Goals Mobility/Bed Mobility LTG PT Grid Goal [...] in this encounter Care Teams Protective Signal Superintendent Relationship Specialty Start Date End Date Jay Howell MD [address] [place] [phone] PCP - General Emergency Medicine 11/12/23 documented as of this encounter
--- OUTSIDE RECORDS SUMMARY | 2025-10-13 13:27 | XMS_ITS | Encounter Summary ---
Author Organization [employer] ([place], [place], [place], [place], [place]) Address [address] [place] [address] Care Team Providers Care Credit Collections Rep Name Role Phone Jay Howell MD Primary Care Provider [phone] Encounter Details Date Type Department Care Team (Late st Contact Info) Description 08/25/2020 Transcribed Document [facility] [place] [address] [place] [address] ProviderJessie MD [address] [place] [phone] Social History Tobacco Use Types Packs/Day Years Used Date Smoking Tobacco: Never Assessed Comments Unknown Sex and Gender Information Value Date Recorded Sex Assigned at Not on file Legal Sex Female 7:30 PM CDT Gender Identity Not on file Sexual Orientation Not on file documented as of this encounter Miscellaneous Notes * Cerner Conversion Note - Jessie ProviderMD - 08/25/2020 4:33 AM CUTTER TENDER Broset Violence Assessment Entered On: 08/25/2020 5:10 EST Performed On: 08/25/2020 5:10 EST by Yajaira Magallon Rn Broset Violence Assessment Broset Violence Checklist of Symptoms : None Broset Violence Symptoms Subtotal : 0 Broset Violence Symptoms Indicator : Low risk (0) Yajaira Magallon Rn - 08/25/2020 5:10 EST Electronically signed by Sivan [facility] Conversion Rawhide Trimmer Cerner at 02/04/2023 2:10 PM CDT documented in this encounter Plan of Treatment Not on file documented as of this encounter Visit Diagnoses Not on filedocumented in this encounter Care Teams Credit Collections Rep Relationship Specialty Start Date End Date Jay Howell MD [address] [place] [phone] PCP - General Emergency Medicine 11/12/23 documented as of this encounter
--- OUTSIDE RECORDS SUMMARY | 2025-10-13 13:28 | XMS_ITS | Encounter Summary ---
Author Organization [employer] ([place], [place], [place], [place], [place]) Address [address] [place] [address] Care Team Providers Care Filler Room Attendant Name Role Phone Jay Howell MD Primary Care Provider [phone] Encounter Details Date Type Department Care Team (Late st Contact Info) Description 08/26/2020 Transcribed Document [facility] [place] [address] [place] [address] ProviderJessie MD [address] [place] [phone] Social History Tobacco Use Types Packs/Day Years Used Date Smoking Tobacco: Never Assessed Comments Unknown Sex and Gender Information Value Date Recorded Sex Assigned at Not on file Legal Sex Female 7:30 PM CDT Gender Identity Not on file Sexual Orientation Not on file documented as of this encounter Miscellaneous Notes * Cerner Conversion Note - Jessie ProviderMD - 08/26/2020 2:00 AM BANK COMPLIANCE OFFICER [facility] Details Entered On: 08/26/2020 2:00 EST Performed On: 08/26/2020 2:00 EST by Kervin Kulkarni RN Order Details Isolation Precautions Order Detail : Standard Precautions Order Detail : N/A IV Order Detail : 1 Oxygen Order Detail : 0 Lift/Transfer : Independent Room Service : Not Appropriate Patient Needs Meds Crushed/Liquid : No Kervin Kulkarni RN - 08/26/2020 1:56 EST Electronically signed by [facility] Conversion Forest Fire Prevention Specialist Cerner at 02/04/2023 2:10 PM CDT documented in this encounter Plan of Treatment Not on file documented as of this encounter Visit Diagnoses Not on filedocumented in this encounter Care Teams Filler Room Attendant Relationship Specialty Start Date End Date Jay Howell MD [address] [place] [phone] PCP - General Emergency Medicine 11/12/23 documented as of this encounter
--- OUTSIDE RECORDS SUMMARY | 2025-10-13 13:28 | XMS_ITS | Encounter Summary ---
Author Organization [employer] ([place], [place], [place], [place], [place]) Address [address] [place] [address] Care Team Providers Care Failure Analysis Engineer Name Role Phone Jay Howell MD Primary Care Provider [phone] Encounter Details Date Type Department Care Team (Late st Contact Info) Description 08/26/2020 Transcribed Document [facility] [place] [address] [place] [address] ProviderJessie MD [address] [place], [place] [phone] Social History Tobacco Use Types Packs/Day Years Used Date Smoking Tobacco: Never Assessed Comments Unknown Sex and Gender Information Value Date Recorded Sex Assigned at Not on file Legal Sex Female 7:30 PM CDT Gender Identity Not on file Sexual Orientation Not on file documented as of this encounter Miscellaneous Notes * Cerner Conversion Note - Jessie ProviderMD - 08/26/2020 2:16 PM DINING ROOM HOSTESS Initial Discharge Planning Entered On: 08/26/2020 14:19 EST Performed On: 08/26/2020 14:16 EST by KAVITA PELLETIER RN-Wet Roaster Initial Assessment I Previously Documented Living Environment [...] Listed? : Yes Medical Durable Power of Medical Reimbursement Specialist Name : No KAVITA PELLETIER RN-Wet Roaster - 08/26/2020 14:16 EST Initial Assessment II Sensory and Motor Deficits : Weakness Current Home Treatments and Equipment : CPAP, Walker KAVITA PELLETIER RN-Wet Roaster - 08/26/2020 14:16 EST Narrative Note Narrative [...] upon POC. CM will follow. KAVITA PELLETIER RN-Wet Roaster - 08/26/2020 14:16 EST documented in this encounter Plan of Treatment Not on file documented as of this encounter Visit Diagnoses Not on filedocumented in this encounter Care Teams Failure Analysis Engineer Relationship Specialty Start Date End Date Jay Howell MD [address] [place] [phone] PCP - General Emergency Medicine 11/12/23 documented as of this encounter
--- OUTSIDE RECORDS SUMMARY | 2025-10-13 13:28 | XMS_ITS | Encounter Summary ---
Author Organization [employer] ([place], [place], [place], [place], [place]) Address [address] [place] [address] Care Team Providers Care Commercial Production Editor Name Role Phone Jay Howell MD Primary Care Provider [phone] Encounter Details Date Type Department Care Team (Late st Contact Info) Description 03/18/2021 Transcribed Document [facility] [place] Family [place] [address] [place] [address] ProviderJessie MD [address] [place], [place] 234691 Social History Tobacco Use Types Packs/Day Years [...] Lymph # 1.66 x10(3)/uL 03/18/2021 05:19 EDT [place] % 11.4 % (High) 03/18/2021 05:19 EDT [place] # 0.75 K/uL 03/18/2021 05:19 EDT Eos [...] filedocumented in this encounter Care Teams Commercial Production Editor Relationship Specialty Start Date End Date Jay Howell MD [address] [place] [phone] PCP - General Emergency Medicine 11/12/23 documented as of this encounter
--- OUTSIDE RECORDS SUMMARY | 2025-10-13 13:28 | XMS_ITS | Encounter Summary ---
Author Organization [employer] ([place], [place], [place], [place], [place]) Address [address] [place] [address] Care Team Providers Care Cisco Certified Internetwork Expert Name Role Phone Jay Howell MD Primary Care Provider [phone] Encounter Details Date Type Department Care Team (Late st Contact Info) Description 09/01/2020 Transcribed Document [facility] [place] [address] [place] [address] ProviderJessie MD [address] [place] [address] Social History Tobacco Use Types Packs/Day [...] Jessie Yuen MD - 09/01/2020 9:16 AM CHAINSAW MECHANIC Patient: SYKLER MONTOYA Age: 79 years Sex: Female : 1940 Associated Diagnoses: None Author: Cheng Jennings, Materials Planner Cert Ms. Montoya is 79 yo female [...] closely with daily INR. 6. D/W Gia Brown - planning to discharge on 3mg daily with Lovenox 70mg SQ bid bridge Thank you for this consult, Kip Eberwein, RPh Electronically signed by Interface, [facility] Conversion Bundle Tier And Labeler Cerner at 02/04/2023 2:20 PM CDT documented in this encounter Plan of Treatment Not on file documented as of this encounter Visit Diagnoses Not on filedocumented in this encounter Care Teams [employer] Certified Internetwork Expert Relationship Specialty Start Date End Date Jay Howell MD [address] [place] [phone] PCP - General Emergency Medicine 11/12/23 documented as of this encounter
--- OUTSIDE RECORDS SUMMARY | 2025-10-13 13:28 | XMS_ITS | Encounter Summary ---
Author Organization [employer] ([place], [place], [place], [place], [place]) Address [address] [place] [address] Care Team Providers Care Cycling Instructor Name Role Phone Jay Howell MD Primary Care Provider [phone] Encounter Details Date Type Department Care Team (Late st Contact Info) Description 09/01/[address] [facility] [place] [address] [place] [address] ProviderJessie MD [address] [place] [phone] Social History Tobacco Use Types Packs/Day Years Used Date Smoking Tobacco: Never Assessed Comments Unknown Sex and Gender Information Value Date Recorded Sex Assigned at Not on file Legal Sex Female 7:30 PM CDT Gender Identity Not on file Sexual Orientation Not on file documented as of this encounter Miscellaneous Notes * Cerner Conversion Note - Historical ProviderMD - 09/01/2020 2:22 PM HORTICULTURAL SERVICES SUPERVISOR Stroke/Warfarin Instructions Entered On: 09/01/2020 14:22 EST Performed On: 09/01/2020 14:22 EST by Kailee Velasquez RN Stroke/Warfarin Instructions Stroke/TIA Discharge Ins : N/A Warfarin Discharge Ins : N/A Kailee Velasquez RN - 09/01/2020 14:22 EST documented in this encounter Plan of Treatment Not on file documented as of this encounter Visit Diagnoses Not on filedocumented in this encounter Care Teams Cycling Instructor Relationship Specialty Start Date End Date Jay Howell MD [address] [place] [phone] PCP - General Emergency Medicine 11/12/23 documented as of this encounter
--- OUTSIDE RECORDS SUMMARY | 2025-10-13 13:28 | XMS_ITS | Encounter Summary ---
Author Organization [employer] ([place], [place], [place], [place], [place]) Address [address] [place] [address] Care Team Providers Care Tool Analyst Name Role Phone Jay Howell MD Primary Care Provider [phone] Encounter Details Date Type Department Care Team (Late st Contact Info) Description 03/18/2021 Transcribed Document [facility] [place] [address] [place] [address] ProviderJessie MD [address] [place], [place] [phone] Social History Tobacco Use Types Packs/Day Years [...] signed by Sivan, [facility] Conversion Chef Passenger Vessel Cerner at 02/04/2023 2:20 PM CDT documented in this encounter Plan of Treatment Not on file documented as of this encounter Visit Diagnoses Not on filedocumented in this encounter Care Teams Tool Analyst Relationship Specialty Start Date End Date Jay Howell MD [address] [place] [phone] PCP - General Emergency Medicine 11/12/23 documented as of this encounter
--- OUTSIDE RECORDS SUMMARY | 2025-10-13 13:28 | XMS_ITS | Encounter Summary ---
Author Organization [employer] ([place], [place], [place], [place], [place]) Address [address] [place] [address] Care Team Providers Care Release And Technical Records Clerk Name Role Phone Jay Howell MD Primary Care Provider [phone] Encounter Details Date Type Department Care Team (Late st Contact Info) Description 09/01/2020 Transcribed Document [facility] [place] Family Medicine [address] [place] [address] ProviderJessie MD [address] [place] [address] [phone] Social History Tobacco Use Types Packs/Day Years Used Date Smoking Tobacco: Never Assessed Comments Unknown Sex and Gender Information Value Date Recorded Sex Assigned at Not on file Legal Sex Female 7:30 PM CDT Gender Identity Not on file Sexual Orientation Not on file documented as of this encounter Miscellaneous Notes * Cerner Conversion Note - Jessie ProviderMD - 09/01/2020 2:19 PM STAFF ANTISUBMARINE OFFICER Patient Education Materials Follows: Negative Pressure Wound [...] bag. ??? Soap and water, or hand knuckle bender. ??? Wound cleanser or salt-water solution (saline). [...] and water are not available, use hand knuckle bender. 3. Set up a clean station for [...] and water are not available, use hand knuckle bender. Clean your wound ??? Wear gloves, protective [...] and water are not available, use hand knuckle bender. Apply new dressing ??? Wear gloves, protective [...] and water are not available, use hand knuckle bender. 8. Turn the pump back on. The sponge dressing should collapse. Do not change the settings on the machine without talking to a health care provider. 9. Replace the container in the pump that collects fluid if it is full. Replace the container per the curing finisher's instructions or at least once a week, [...] clamps are open. ??? Do not use ghhw-ouw-xrqdrrv medicated or antiseptic creams, sprays, liquids, or [...] 12/25/2012 Document Revised: 01/25/2020 Document Reviewed: 12/21/2019 [facility] Patient Education ? 2019 [facility] Hematology Hematoma A hematoma is a [...] health care provider. General instructions ??? Take aqyl-dqu-wetksgc and prescription medicines only as told by [...] 05/17/2005 Document Revised: 03/08/2019 Document Reviewed: 03/08/2019 [facility] Patient Education ? 2020 [facility] Infectious Disease Cellulitis, Adult Cellulitis is [...] these instructions at home: Medicines ??? Take yfbs-zcr-nzqtdjr and prescription medicines only as told by [...] 03/21/2009 Document Revised: 02/22/2019 Document Reviewed: 02/22/2019 [facility] Patient Education ? 2019 [facility] Pharmacology What You Need to Know [...] other medicines or supplements? Many prescription and djan-yii-nkuvamb medicines can interfere with warfarin. Talk with your health care provider or your pharmacist before starting or stopping any new medicines. This includes emxg-jar-ndoqleh vitamins, dietary supplements, herbal medicines, and pain medicines. Your warfarin dosage may need to be adjusted. ??? Some common pwbv-zqh-kyaqphb medicines that may increase the risk of [...] that you work with a diet and medical coding specialist (dietitian). ??? Vitamin K decreases the [...] cooked. ??? Collards, raw or cooked. ??? [place] Islander chard, raw or cooked. ??? Mustard greens, raw or cooked. ??? Turnip greens, raw or cooked. ??? Parsley, raw. ??? Broccoli, cooked. ??? Noodles, eggs, and spinach, enriched. ??? [place] sprouts, raw or cooked. ??? Beet greens, [...] diet. ??? You start or stop any wtgr-gyy-dqjgucy medicine, prescription medicine, or dietary supplement. ??? [...] 10/03/2006 Document Revised: 05/16/2018 Document Reviewed: 12/29/2016 [facility] Patient Education ? 2020 [employer]. documented in this encounter Plan of Treatment Not on file documented as of this encounter Visit Diagnoses Not on filedocumented in this encounter Care Teams Release And Technical Records Clerk Relationship Specialty Start Date End Date Jay Howell MD [address] [place] [phone] PCP - General Emergency Medicine 11/12/23 documented as of this encounter
--- OUTSIDE RECORDS SUMMARY | 2025-10-13 13:28 | XMS_ITS | Encounter Summary ---
Author Organization [email or web address] ([place], [place], [place], [place], [place]) Address [address] [place] [address] Care Team Providers Care Office Aide Name Role Phone Jay Howell MD Primary Care Provider [phone] Encounter Details Date Type Department Care Team (Late st Contact Info) Description 09/01/2020 Transcribed Document [facility] [place] Family Medicine [address] [place] [address] ProviderJessie MD [address] [place] [address] [phone] Social History Tobacco Use Types Packs/Day Years Used Date Smoking Tobacco: Never Assessed Comments Unknown Sex and Gender Information Value Date Recorded Sex Assigned at Not on file Legal Sex Female 7:30 PM CDT Gender Identity Not on file Sexual Orientation Not on file documented as of this encounter Miscellaneous Notes * Cerner Conversion Note - Jessie Yuen MD - 09/01/2020 9:27 AM POINT OF CARE TECHNICIAN Patient: SKYLER BAUTISTA Age: 79 Years Sex: [...] [1] Summary BILATERAL: Monophasic waveforms of the COMPENSATION ADVISOR, & DPA . Unable to compress COMPENSATION ADVISOR and DPA (>220 mmHg). Toe brachial index: Non-compressible [2] RIGHT: Abnormal arterial runoff disease present starting at the level of the COMPENSATION ADVISOR. Non significant, non-flow restricting plaque noted at common femoral artery. 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 There is a significant (50-75%) stenosis of the distal COMPENSATION ADVISOR. Non significant, non-flow restricting plaque noted at DPA. COMPENSATION ADVISOR & DPA non compressible for FERNIE. TBI: Non compressible. LEFT: Abnormal arterial runoff disease present starting at the level of the COMPENSATION ADVISOR. Non significant, non-flow restricting plaque noted at common femoral artery. There is a severe (>75%) stenosis of the distal COMPENSATION ADVISOR. COMPENSATION ADVISOR & DPA non compressible for FERNIE. TBI: [...] multiple stent placements. The patient presented to [facility] ER after recent fall with hematoma [...] Vitamins oral tablet 1 Tab, Oral, Daily [place] 7.5 mg-325 mg oral tablet 1 Tab, [...] -- Start: 08/26/20 17:14:00 EST, 60 gm carbs:[id number] george, Isolation: Standard Precautions, Instructions: Diabetic Diet [...] Ankle Min 3 Vws LT; Shannon Marquez, Lumber Inspector 08/22/2020 21:21 EST [2] [facility]; ERMA ZHENG MD-AMALIA 08/25/2020 11:29 EST [3] [facility]; ERMA ZHENG MD-AMALIA 08/25/2020 11:40 EST [4] MRI Spine Lumbar WO; Leti Wakefield, MULTI MODALITY TECHNOLOGIST 08/25/2020 15:21 EST [5] CT Abdomen WO W; Gus Lopez, CAREER DEVELOPMENT MANAGER 08/27/2020 18:06 EST [6] Admission History and Physical; BETH DAVALOS MD-INT 08/25/2020 06:23 EST documented in this encounter Plan of Treatment Not on file documented as of this encounter Visit Diagnoses Not on filedocumented in this encounter Care Teams Office Aide Relationship Specialty Start Date End Date Jay Howell MD [address] [place] [phone] (work) PCP - General Emergency Medicine 11/12/23 documented as of this encounter
--- OUTSIDE RECORDS SUMMARY | 2025-10-13 13:28 | XMS_ITS | Encounter Summary ---
Author Organization [employer] ([place], [place], [place], [place], [place]) Address [address] [place] [address] Care Team Providers Care Community Relations Manager Name Role Phone Jay Howell MD Primary Care Provider [phone] Encounter Details Date Type Department Care Team (Late st Contact Info) Description 08/26/2020 Transcribed Document [facility] [place] [address] [place] [address] ProviderJessie MD [address] [place] [address] Social History Tobacco Use Types Packs/Day Years Used Date Smoking Tobacco: Never Assessed Comments Unknown Sex and Gender Information Value Date Recorded Sex Assigned at Not on file Legal Sex Female 7:30 PM CDT Gender Identity Not on file Sexual Orientation Not on file documented as of this encounter Miscellaneous Notes * Cerner Conversion Note - Jessie Yuen MD - 08/26/2020 8:24 AM SERVICE ORDER CLERK Patient: SKYLER MONTOYA Age: 79 years [...] Level 8.4 mg/dL 08/26/2020 04:23 MICRO: ACC: [id number] ORDER: Culture Wound and Stain DATE: 08/25/2020 05:00 SOURCE: Wound SITE: Leg Lower L Reports Pre 08/26/2020 06:23 No growth GS 08/25/2020 07:26 No organisms seen. Few White Blood Cells Rare epithelial cells == ACC: [id number] ORDER: Culture Blood DATE: 08/25/2020 05:01 SOURCE: Blood SITE: Reports Pre 08/26/2020 06:01 No growth at 1 day. Pre 08/25/2020 23:02 Culture less than 24 Hrs old == ACC: [id number] ORDER: Culture Blood DATE: 08/25/2020 05:01 SOURCE: Blood SITE: Reports Pre 08/26/2020 06:01 No growth at 1 day. Pre 08/25/2020 23:02 Culture less than 24 Hrs old == Radiology Results (Last 48 hours) [id number] -- 08/25/2020 05:53 CR Chest 1 Vw [...] above. Discussed with them. Electronically signed by [facility], [facility] Conversion Payment Collector Cerner at 02/04/2023 2:09 PM CDT documented in this encounter Plan of Treatment Not on file documented as of this encounter Visit Diagnoses Not on filedocumented in this encounter Care Teams Community Relations Manager Relationship Specialty Start Date End Date Jay Howell MD [address] [place] [phone] PCP - General Emergency Medicine 11/12/23 documented as of this encounter
--- OUTSIDE RECORDS SUMMARY | 2025-10-13 13:28 | XMS_ITS | Encounter Summary ---
Author Organization [employer] ([place], [place], [place], [place], [place]) Address [address] [place] [address] Care Team Providers Care Printing Estimator Name Role Phone Jay Howell MD Primary Care Provider Encounter Details Date Type Department Care Team (Late st Contact Info) Description 12/12/2018 Transcribed Document [facility] [place] [address] [place] [address] ProviderJessie MD [address] [place] [address] [phone] Social History Tobacco Use Types Packs/Day Years Used Date Smoking Tobacco: Never Assessed Comments Unknown Sex and Gender Information Value Date Recorded Sex Assigned at Not on file Legal Sex Female 7:30 PM CDT Gender Identity Not on file Sexual Orientation Not on file documented as of this encounter Miscellaneous Notes * Cerner Conversion Note - Jessie ProviderMD - 12/12/2018 8:58 PM SENIOR SPEECH PATHOLOGIST ED Triage Entered On: 12/12/2018 21:20 EST Performed On: 12/12/2018 21:18 EST by LUCINDA FOFANA RN ED Triage Across the Room Triage Date/Time : 12/12/2018 21:18 EST Chief Complaint : pt c/o mscp x 2 hours rad to neck & L arm. reports seen bt card in [place] for same earlier this week, reports she [...] 21:20:38 EST) Problems(Active) Apnea, sleep (SNOMED CT :563068101 ) Name of Problem: Apnea, sleep ; Recorder: JUAN LUIS GIL RN; Confirmation: Confirmed ; Classification: Medical ; Code: 466269297 ; Contributor System: PowerChart ; Last Updated: 11/12/2014 10:12 EST ; Life Cycle Date: 11/12/2014 ; Life Cycle Status: Active ; Vocabulary: SNOMED CT Arthritis (SNOMED CT :7054973 ) Name of Problem: Arthritis ; Recorder: KENYON CHAMBERS RN; Confirmation: Confirmed ; Classification: Medical ; Code: 5505564 ; Contributor System: PowerChart ; Last Updated: 04/10/2016 8:04 EDT ; Life Cycle Date: 08/13/2013 ; Life Cycle Status: Active ; Vocabulary: SNOMED CT Atrial fibrillation with RVR (SNOMED CT :2414104475 ) Name of Problem: Atrial fibrillation with RVR ; Recorder: SANG RICO APR; Confirmation: Confirmed ; Classification: Medical ; Code: [id number] ; Contributor System: PowerChart ; Last Updated: 04/10/2016 8:05 EDT ; Life Cycle Date: 04/10/2016 ; Life Cycle Status: Active ; Responsible Provider: SANG RICO APR; Vocabulary: SNOMED CT Blood clot (SNOMED CT :912802763 ) Name of Problem: Blood clot ; Recorder: KENYON CHAMBERS RN; Confirmation: Confirmed ; Classification: Patient Stated ; Code: 839602603 ; Contributor System: PowerChart ; Last Updated: [...] Vocabulary: Patient Care Chest pain (SNOMED CT :75327730 ) Name of Problem: Chest pain ; Recorder: SANG RICO APR; Confirmation: Complaint of ; Classification: Medical ; Code: 85503525 ; Contributor System: PowerChart ; Last Updated: 04/10/2016 8:05 EDT ; Life Cycle Status: Active ; Responsible Provider: SANG RICO APR; Vocabulary: SNOMED CT Chronic anticoagulation (SNOMED CT :023843168 ) Name of Problem: Chronic anticoagulation ; Recorder: SANG RICO APR; Confirmation: Confirmed ; Classification: Medical ; Code: 641478054 ; Contributor System: PowerChart ; Last Updated: 04/10/2016 8:05 EDT ; Life Cycle Date: 04/10/2016 ; Life Cycle Status: Active ; Responsible Provider: SANG RICO APR; Vocabulary: SNOMED CT Clotting disorder (SNOMED CT :268633986 ) Name of Problem: Clotting disorder ; Recorder: KENYON CHAMBERS RN; Confirmation: Confirmed ; Classification: Patient Stated ; Code: 709403277 ; Contributor System: PowerChart ; Last Updated: 03/28/2014 19:29 EDT ; Life Cycle Date: 08/13/2013 ; Life Cycle Status: Active ; Vocabulary: SNOMED CT COPD (SNOMED CT :96407762 ) Name of Problem: COPD ; Recorder: KENYON CHAMBERS RN; Confirmation: Confirmed ; Classification: Medical ; Code: 03534587 ; Contributor System: PowerChart ; Last Updated: 04/10/2016 8:03 EDT ; Life Cycle Date: 08/13/2013 ; Life Cycle Status: Active ; Vocabulary: SNOMED CT Coronary artery disease (SNOMED CT :5511913689 ) Name of Problem: Coronary artery disease ; Recorder: KENYON CHAMBERS RN; Confirmation: Confirmed ; Classification: Medical ; Code: 7183797281 ; Contributor System: PowerChart ; Last Updated: 04/10/2016 8:03 EDT ; Life Cycle Date: 08/13/2013 ; Life Cycle Status: Active ; Vocabulary: SNOMED CT Diabetes mellitus (SNOMED CT :014981571 ) Name of Problem: Diabetes mellitus ; Recorder: KENYON CHAMBERS RN; Confirmation: Confirmed ; Classification: Medical ; Code: 252211866 ; Contributor System: PowerChart ; Last Updated: 04/10/2016 8:04 EDT ; Life Cycle Date: 08/13/2013 ; Life Cycle Status: Active ; Vocabulary: SNOMED CT Emphysema (SNOMED CT :292989818 ) Name of Problem: Emphysema ; Recorder: JUAN LUIS GIL RN; Confirmation: Confirmed ; Classification: Medical ; Code: 982215456 ; Contributor System: My [employer] DatabaseChart ; Last Updated: 11/12/2014 10:11 EST ; Life Cycle Date: 11/12/2014 ; Life Cycle Status: Active ; Vocabulary: SNOMED CT GERD - Gastro-esophageal reflux disease (SNOMED CT :1380138448 ) Name of Problem: GERD - Gastro-esophageal reflux disease ; Recorder: KENYON CHAMBERS RN; Confirmation: Confirmed ; Classification: Medical ; Code: 0377543577 ; Contributor System: PowerChart ; Last Updated: [...] Patient Care High blood pressure (SNOMED CT :16742872 ) Name of Problem: High blood pressure ; Recorder: KENYON CHAMBERS RN; Confirmation: Confirmed ; Classification: Medical ; Code: 98459778 ; Contributor System: [employer] DatabaseChart ; Last Updated: 04/10/2016 8:03 EDT ; Life Cycle Date: 08/13/2013 ; Life Cycle Status: Active ; Vocabulary: SNOMED CT Hx of pulmonary embolus (SNOMED CT :923933234 ) Name of Problem: Hx of pulmonary embolus ; Recorder: SANG RICO APR; Confirmation: Confirmed ; Classification: Medical ; Code: 854402899 ; Contributor System: PowerChart ; Last Updated: 04/10/2016 8:05 EDT ; Life Cycle Date: 04/10/2016 ; Life Cycle Status: Active ; Responsible Provider: SANG RICO APR; Vocabulary: SNOMED CT Hyperlipidemia (SNOMED CT :20550712 ) Name of Problem: Hyperlipidemia ; Recorder: KENYON CHAMBERS RN; Confirmation: Confirmed ; Classification: Medical ; Code: 11219740 ; Contributor System: PowerChart ; Last Updated: 04/10/2016 8:03 EDT ; Life Cycle Date: 08/13/2013 ; Life Cycle Status: Active ; Vocabulary: SNOMED CT Multiple renal cysts (SNOMED CT :506704484 ) Name of Problem: Multiple renal cysts ; Recorder: KENYON CHAMBERS RN; Confirmation: Confirmed ; Classification: Medical ; Code: 723084981 ; Contributor System: [employer] DatabaseChart ; Last Updated: 04/10/2016 8:04 EDT ; Life Cycle Date: 08/13/2013 ; Life Cycle Status: Active ; Vocabulary: SNOMED CT Stented coronary artery (SNOMED CT :7166603994 ) Name of Problem: Stented coronary artery ; Recorder: KENYON CHAMBERS RN; Confirmation: Confirmed ; Classification: Medical ; Code: 6331544039 ; Contributor System: [employer]Chart ; Last Updated: 04/10/2016 8:03 EDT ; Life Cycle Date: 08/13/2013 ; Life Cycle Status: Active ; Vocabulary: SNOMED CT UTI - Urinary tract infection (SNOMED CT :4693913227 ) Name of Problem: UTI - Urinary tract infection ; Recorder: KENYON CHAMBERS RN; Confirmation: Confirmed ; Classification: Medical ; Code: 8675673034 ; Contributor System: [employer] ; Last Updated: 04/10/2016 8:04 EDT ; Life Cycle Date: 08/13/2013 ; Life Cycle Status: Active ; Vocabulary: SNOMED CT Diagnoses(Active) Chest pain Date: 12/12/2018 ; Diagnosis Type: Reason For Visit ; Confirmation: Complaint of ; Clinical Dx: Chest pain ; Classification: Medical ; Clinical Service: Emergency medicine ; Code: PNED ; Probability: 0 ; Diagnosis Code: [id number] ED Height and Weight Height Source : Stated Height Entry Format : [place] Height, Feet : 5 ft(Converted to: 152 cm, 60 Inch) Height, Inches : 3 Inch(Converted to: 0 ft 3 Inch, 7.62 cm) Clinical Height : 160.02 cm Weight Source, ED : Standing scale Weight Entry Format : [place] Weight, Pounds : 161.7 lb Clinical Dosing Weight : 73.5 kg Body Surface Area (BSA) : 1.77 m2 Body Mass Index : 28.7 kg/m2 (HI) [place] Body Weight (IBW) : 52.02 kg LUCINDA FOFANA RN - 12/12/2018 21:18 EST documented in this encounter Plan of Treatment Not on file documented as of this encounter Visit Diagnoses Not on filedocumented in this encounter Care Teams Printing Estimator Relationship Specialty Start Date End Date Jay Howell MD [address] [place] [phone] PCP - General Emergency Medicine 11/12/23 documented as of this encounter
--- OUTSIDE RECORDS SUMMARY | 2025-10-13 13:28 | XMS_ITS | Encounter Summary ---
Author Organization [employer] ([place], [place], [place], [place], [place]) Address [address] [place] [address] Care Team Providers Care Owner Operator Tanker Truck Driver Name Role Phone Jay Howell MD Primary Care Provider [phone] Encounter Details Date Type Department Care Team (Late st Contact Info) Description 03/18/2021 Transcribed Document [facility] [place] [address] [place] [address] ProviderJessie MD [address] [place], [place] [phone] Social History Tobacco Use Types Packs/Day Years [...] on filedocumented in this encounter Care Teams Owner Operator Tanker Truck Driver Relationship Specialty Start Date End Date Jay Howell MD [address] [place] [phone] PCP - General Emergency Medicine 11/12/23 documented as of this encounter
--- OUTSIDE RECORDS SUMMARY | 2025-10-13 13:28 | XMS_ITS | Encounter Summary ---
Author Organization [employer] ([place], [place], [place], [place], [place]) Address [address] [place] [address] Care Team Providers Care Geological Aide Name Role Phone Jay Howell MD Primary Care Provider [phone] Encounter Details Date Type Department Care Team (Late st Contact Info) Description 12/12/2018 Transcribed Document [facility] [place] [address] [place] [address] ProviderJessie MD [address] [place] [address] [phone] Social History Tobacco Use Types Packs/Day Years Used Date Smoking Tobacco: Never Assessed Comments Unknown Sex and Gender Information Value Date Recorded Sex Assigned at Not on file Legal Sex Female 7:30 PM CDT Gender Identity Not on file Sexual Orientation Not on file documented as of this encounter Miscellaneous Notes * Cerner Conversion Note - Jessie Yuen MD - 12/12/2018 8:58 PM RETAIL ACCOUNT MANAGER ED Assessment Entered On: 12/12/2018 21:53 EST Performed On: 12/12/2018 21:49 EST by uZrdo Liriano Rn-Resource ED Quick Look Assessment Level of Consciousness : Alert, Awake Affect/Behavior : Appropriate, Calm, Cooperative Orientation : Oriented x 4 Skin Temperature : Warm Zurdo Liriano Rn-Resource - 12/12/2018 21:49 EST ED General-Functional Assess Information Obtained From : Patient Preferred Communication Mode : Verbal Communication Barrier : None Primary Language : Croatian Additional Emergency Contact #1 : Johnny Montoya Additional Contact #1 Phone Number : [phone] Additional Contact #1 Relationship : spouse Any [...] Home/Independent. (Last Updated: 12/14/2014 22:42:39 EST by BPIIN HOFF RN) Cardiovascular ASMT, ED Cardiovascular Assessment WDL : WDL with exceptions Cardiovascular Symptoms : Chest discomfort at rest Heart Rhythm : Regular Nail Bed Color : [place] Chest Pain : Yes Neck Vein Distention [...] - 12/12/2018 21:49 EST Electronically signed by [facility], [facility] Conversion Youtuber Cerner at 02/04/2023 2:13 PM CDT documented in this encounter Plan of Treatment Not on file documented as of this encounter Visit Diagnoses Not on filedocumented in this encounter Care Teams Geological Aide Relationship Specialty Start Date End Date Jay Howell MD [address] [place] [phone] PCP - General Emergency Medicine 11/12/23 documented as of this encounter
--- OUTSIDE RECORDS SUMMARY | 2025-10-13 13:28 | XMS_ITS | Encounter Summary ---
Author Organization [employer] ([place], [place], [place], [place], [place]) Address [address] [place] [address] Care Team Providers Care Cart Driver Name Role Phone Jay Howell MD Primary Care Provider [phone] Encounter Details Date Type Department Care Team (Late st Contact Info) Description 12/12/2018 Transcribed Document [facility] [place] [address] [place] [address] ProviderJessie MD [address] [place] [address] [phone] Social History Tobacco Use Types Packs/Day Years Used Date Smoking Tobacco: Never Assessed Comments Unknown Sex and Gender Information Value Date Recorded Sex Assigned at Not on file Legal Sex Female 7:30 PM CDT Gender Identity Not on file Sexual Orientation Not on file documented as of this encounter Miscellaneous Notes * Cerner Conversion Note - Jessie Yuen MD - 12/12/2018 10:39 PM BULLET ASSEMBLY PRESS OPERATOR ED Discharge Entered On: 12/12/2018 22:40 EST [...] - 12/12/2018 22:39 EST Electronically signed by [facility], [facility] Conversion Metalizing Machine Operator Automatic Cerner at 02/04/2023 2:15 PM CDT documented in this encounter Plan of Treatment Not on file documented as of this encounter Visit Diagnoses Not on filedocumented in this encounter Care Teams Cart Driver Relationship Specialty Start Date End Date Jay Howell MD [address] [place] [phone] PCP - General Emergency Medicine 11/12/23 documented as of this encounter
--- OUTSIDE RECORDS SUMMARY | 2025-10-13 13:28 | XMS_ITS | Encounter Summary ---
Author Organization [employer] ([place], [place], [place], [place], [place]) Address [address] [place] [address] Care Team Providers Care Pressure Sealer And Tester Name Role Phone Jay Howell MD Primary Care Provider [phone] Encounter Details Date Type Department Care Team (Late st Contact Info) Description 12/12/2018 Transcribed Document [facility] [place] Family Medicine [address] [place] [address] ProviderJessie MD [address] [place] [address] Social History Tobacco Use Types Packs/Day [...] Jessie Yuen MD - 12/12/2018 10:41 PM BLUEPRINT MACHINE OPERATOR [address] [place], [place] [id number] Patient Information Name: SKYLER MONTOYA Age: 77 [...] please contact the Patient Resource Center at [phone]. With: Address: When: Follow-up with your digital media analyst in the morning. Return to the closest emergency department for any acute new concerns or recurrence of symptoms. Within in AM With: Address: When: TARA CHEN [address] [place] [address] DR HUTCHINSON, BEATRIZ [address] [facility] (1) Within 2 to 3 [...] physical activity. It especially occurs in the speech therapist early intervention hours. What are the causes? Atherosclerosis is [...] 10/03/2006 Document Revised: 03/16/2017 Document Reviewed: 02/04/2015 [employer] Interactive Patient Education ? 2017 [employer] Allergies: Macrodantin; morphine; nitrofurantoin Medication Information: [...] range between ( 0.0 and 7.0 ) Burt #: 0.65 K/uL -- Normal range between ( 0.16 and 1.00 ) Eos #: 0.00 x10(3)/uL -- Normal range between ( 0.00 and 0.80 ) Burt %: 10.7 % -- Normal range between [...] verify that SKYLER MONTOYA was seen at [facility] Emergency Department on ,12/12/2018 22:41:24. [...] along the way. As a healthcare provider, [facility] recommends that you stop smoking. Assistance with quitting is available by contacting 9-118-WKXT-NOW. This is a free resource providing counseling, [...] Electronic Communications Privacy Act 18 U.S.C. ???Sections 8483-1826,?? and contain information intended for the specified [...] Be sure to sign up for the [facility] patient portal, which gives you 09/05 access to your medical information ??? including these discharge instructions ??? using your computer, smartphone, or tablet. Just go to [employer] to get started. Questions? Call . Acknowledgment [...] Instructions: Emergency Physician: Electronically signed by Sivan, [facility] Conversion Mask Design Engineer Cerner at 02/04/2023 1:56 PM CDT documented in this encounter Plan of Treatment Not on file documented as of this encounter Visit Diagnoses Not on filedocumented in this encounter Care Teams Pressure Sealer And Tester Relationship Specialty Start Date End Date Jay Howell MD [address] [place] [phone] PCP - General Emergency Medicine 11/12/23 documented as of this encounter
--- OUTSIDE RECORDS SUMMARY | 2025-10-13 13:28 | XMS_ITS | Encounter Summary ---
Author Organization [employer] ([place], [place], [place], [place], [place]) Address [address] [place] [address] Care Team Providers Care Captain Airline Pilot Name Role Phone Jay Howell MD Primary Care Provider [phone] Encounter Details Date Type Department Care Team (Late st Contact Info) Description 03/18/2021 Transcribed Document [facility] [place] [address] [place] [address] ProviderJessie MD [address] [place], [place] [id number] Social History Tobacco Use Types Packs/Day Years [...] Date End Date Jay Howell MD [address] [place] [phone] PCP - General Emergency Medicine 11/12/23 documented as of this encounter
--- OUTSIDE RECORDS SUMMARY | 2025-10-13 13:28 | XMS_ITS | Encounter Summary ---
Author Organization [employer] ([place], [place], [place], [place], [place]) Address [address] [place] [address] Care Team Providers Care Cotton Broker Name Role Phone Jay Howell MD Primary Care Provider [phone] Encounter Details Date Type Department Care Team (Late st Contact Info) Description 03/18/2021 Transcribed Document [facility] [place] [address] [place] [address] ProviderJessie MD [address] [place], [place] [address] Social History Tobacco Use Types Packs/Day Years Used Date Smoking Tobacco: Never Assessed Comments Unknown Sex and Gender Information Value Date Recorded Sex Assigned at Not on file Legal Sex Female 7:30 PM CDT Gender Identity Not on file Sexual Orientation Not on file documented as of this encounter Miscellaneous Notes * Cerner Conversion Note - Jessie ProviderMD - 03/18/2021 2:00 AM CDT Coin Machine Servicer Repairer Details Entered On: 03/18/2021 7:00 EDT Performed [...] 03/18/2021 7:00 EDT Electronically signed by Sivan [facility] Conversion Card Reader Cerner at 02/04/2023 2:06 PM CDT documented in this encounter Plan of Treatment Not on file documented as of this encounter Visit Diagnoses Not on filedocumented in this encounter Care Teams Cotton Broker Relationship Specialty Start Date End Date Jay Howell MD [address] [place] [phone] PCP - General Emergency Medicine 11/12/23 documented as of this encounter
--- OUTSIDE RECORDS SUMMARY | 2025-10-13 13:28 | XMS_ITS | Encounter Summary ---
Author Organization [employer] ([place], [place], [place], [place], [place]) Address [address] [place] [address] Care Team Providers Care Card Reader Name Role Phone Jay Howell MD Primary Care Provider [phone] Encounter Details Date Type Department Care Team (Late st Contact Info) Description 09/04/2020 Transcribed Document [facility] [place] [address] [place] [address] ProviderJesise MD [address] [place] [phone] Social History Tobacco Use Types Packs/Day Years Used Date Smoking Tobacco: Never Assessed Comments Unknown Sex and Gender Information Value Date Recorded Sex Assigned at Not on file Legal Sex Female 7:30 PM CDT Gender Identity Not on file Sexual Orientation Not on file documented as of this encounter Miscellaneous Notes * Cerner Conversion Note - Jessie ProviderMD - 09/04/2020 4:04 AM 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 Entered On: 09/04/2020 4:13 EST Performed On: 09/04/2020 1:51 EST by Chinyere Leonard RN ED Triage Across the Room Chief Complaint : see downtime triage form Triage Date/Time : 09/04/2020 1:51 EST Chinyere Leonard RN - 09/04/2020 4:12 EST DCP GENERIC CODE Tracking Acuity : 4 - Non - Urgent Tracking Group : [facility] ED Chinyere Leonard RN - 09/04/2020 4:12 EST Mode of Arrival : Ambulatory Transported to ED by : Private vehicle To Room Via : Ambulate Accompanied By : Spouse Height & Weight : Document ED Allergies : Document ED Reason for Visit : Document Tetanus Immunization : Less than 5 years 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 Needed : No Chinyere Leonard RN - [...] 04:13:26 EST) Problems(Active) Apnea, sleep (SNOMED CT :044202782 ) Name of Problem: Apnea, sleep ; Recorder: JUAN LUIS GIL RN; Confirmation: Confirmed ; Classification: Medical ; Code: 584500103 ; Contributor System: Spacecom ; Last Updated: 11/12/2014 10:12 EST ; Life Cycle Date: 11/12/2014 ; Life Cycle Status: Active ; Vocabulary: SNOMED CT Arthritis (SNOMED CT :5582285 ) Name of Problem: Arthritis ; Recorder: KENYON CHAMBERS RN; Confirmation: Confirmed ; Classification: Medical ; Code: 0561932 ; Contributor System: PowerChart ; Last Updated: 04/10/2016 8:04 EDT ; Life Cycle Date: 08/13/2013 ; Life Cycle Status: Active ; Vocabulary: SNOMED CT Atrial fibrillation with RVR (SNOMED CT :5019026461 ) Name of Problem: Atrial fibrillation with RVR ; Recorder: SANG RICO APRN; Confirmation: Confirmed ; Classification: Medical ; Code: 2647704680 ; Contributor System: PowerChart ; Last Updated: 04/10/2016 8:05 EDT ; Life Cycle Date: 04/10/2016 ; Life Cycle Status: Active ; Responsible Provider: SANG RICO APRN; Vocabulary: SNOMED CT Blood clot (SNOMED CT :217713957 ) Name of Problem: Blood clot ; Recorder: KENYON CHAMBERS RN; Confirmation: Confirmed ; Classification: Patient Stated ; Code: 923603451 ; Contributor System: PowerChart ; Last Updated: [...] Vocabulary: Patient Care Chest pain (SNOMED CT :13119329 ) Name of Problem: Chest pain ; Recorder: SANG RICO APRN; Confirmation: Complaint of ; Classification: Medical ; Code: 25527733 ; Contributor System: PowerChart ; Last Updated: 04/10/2016 8:05 EDT ; Life Cycle Status: Active ; Responsible Provider: SANG RICO APRN; Vocabulary: SNOMED CT Chronic anticoagulation (SNOMED CT :965848847 ) Name of Problem: Chronic anticoagulation ; Recorder: SANG RICO APRN; Confirmation: Confirmed ; Classification: Medical ; Code: 446553397 ; Contributor System: PowerChart ; Last Updated: 04/10/2016 8:05 EDT ; Life Cycle Date: 04/10/2016 ; Life Cycle Status: Active ; Responsible Provider: SANG RICO APRN; Vocabulary: SNOMED CT Clotting disorder (SNOMED CT :597874526 ) Name of Problem: Clotting disorder ; Recorder: KENYON CHAMBERS RN; Confirmation: Confirmed ; Classification: Patient Stated ; Code: 498632103 ; Contributor System: PowerChart ; Last Updated: 03/28/2014 19:29 EDT ; Life Cycle Date: 08/13/2013 ; Life Cycle Status: Active ; Vocabulary: SNOMED CT COPD (SNOMED CT :94321314 ) Name of Problem: COPD ; Recorder: KENYON CHAMBERS RN; Confirmation: Confirmed ; Classification: Medical ; Code: 71055345 ; Contributor System: GoWorkaBitChart ; Last Updated: 04/10/2016 8:03 EDT ; Life Cycle Date: 08/13/2013 ; Life Cycle Status: Active ; Vocabulary: SNOMED CT Coronary artery disease (SNOMED CT :7629462634 ) Name of Problem: Coronary artery disease ; Recorder: KENYON CHAMBERS RN; Confirmation: Confirmed ; Classification: Medical ; Code: 0656902598 ; Contributor System: PowerChart ; Last Updated: 04/10/2016 8:03 EDT ; Life Cycle Date: 08/13/2013 ; Life Cycle Status: Active ; Vocabulary: SNOMED CT Diabetes mellitus (SNOMED CT :733287224 ) Name of Problem: Diabetes mellitus ; Recorder: KENYON CHAMBERS RN; Confirmation: Confirmed ; Classification: Medical ; Code: 530353851 ; Contributor System: PowerChart ; Last Updated: 04/10/2016 8:04 EDT ; Life Cycle Date: 08/13/2013 ; Life Cycle Status: Active ; Vocabulary: SNOMED CT Emphysema (SNOMED CT :654975269 ) Name of Problem: Emphysema ; Recorder: JUAN LUIS GIL RN; Confirmation: Confirmed ; Classification: Medical ; Code: 181006184 ; Contributor System: PowerChart ; Last Updated: 11/12/2014 10:11 EST ; Life Cycle Date: 11/12/2014 ; Life Cycle Status: Active ; Vocabulary: SNOMED CT GERD - Gastro-esophageal reflux disease (SNOMED CT :2846221594 ) Name of Problem: GERD - Gastro-esophageal reflux disease ; Recorder: KENYON CHAMBERS RN; Confirmation: Confirmed ; Classification: Medical ; Code: 7544009721 ; Contributor System: PowerChart ; Last Updated: [...] Patient Care High blood pressure (SNOMED CT :32978900 ) Name of Problem: High blood pressure ; Recorder: KENYON CHAMBERS RN; Confirmation: Confirmed ; Classification: Medical ; Code: 57922487 ; Contributor System: PowerChart ; Last Updated: 04/10/2016 8:03 EDT ; Life Cycle Date: 08/13/2013 ; Life Cycle Status: Active ; Vocabulary: SNOMED CT History of obstructive sleep apnea (IMO :00972171 ) Name of Problem: History of obstructive sleep apnea ; Recorder: SYSTEM, SYSTEM; Confirmation: Confirmed ; Classification: Medical ; Code: 99336239 ; Last Updated: 08/25/2020 18:21 EST ; Life Cycle Date: 08/25/2020 ; Life Cycle Status: Active ; Vocabulary: IMO Hx of pulmonary embolus (SNOMED CT :885547075 ) Name of Problem: Hx of pulmonary embolus ; Recorder: SANG RICO APRN; Confirmation: Confirmed ; Classification: Medical ; Code: 815880320 ; Contributor System: PowerChart ; Last Updated: 04/10/2016 8:05 EDT ; Life Cycle Date: 04/10/2016 ; Life Cycle Status: Active ; Responsible Provider: SANG RICO APRN; Vocabulary: SNOMED CT Hyperlipidemia (SNOMED CT :60489591 ) Name of Problem: Hyperlipidemia ; Recorder: KENYON CHAMBERS RN; Confirmation: Confirmed ; Classification: Medical ; Code: 53311246 ; Contributor System: PowerChart ; Last Updated: 04/10/2016 8:03 EDT ; Life Cycle Date: 08/13/2013 ; Life Cycle Status: Active ; Vocabulary: SNOMED CT Multiple renal cysts (SNOMED CT :085180858 ) Name of Problem: Multiple renal cysts ; Recorder: KENYON CHAMBERS RN; Confirmation: Confirmed ; Classification: Medical ; Code: 943266230 ; Contributor System: Spacecom ; Last Updated: 04/10/2016 8:04 EDT ; Life Cycle Date: 08/13/2013 ; Life Cycle Status: Active ; Vocabulary: SNOMED CT Stented coronary artery (SNOMED CT :2932793555 ) Name of Problem: Stented coronary artery ; Recorder: KENYON CHAMBERS RN; Confirmation: Confirmed ; Classification: Medical ; Code: 8486901572 ; Contributor System: Spacecom ; Last Updated: 04/10/2016 8:03 EDT ; Life Cycle Date: 08/13/2013 ; Life Cycle Status: Active ; Vocabulary: SNOMED CT Diagnoses(Active) Wound drain evaluation Date: 09/04/2020 ; Diagnosis Type: Reason For Visit ; Confirmation: Complaint of ; Clinical Dx: Wound drain evaluation ; Classification: Medical ; Clinical Service: Non-Specified ; Code: PNED ; Probability: 0 ; Diagnosis Code: [id number] ED Height and Weight Height Source : Stated Height Entry Format : [place] Height, Feet : 5 ft(Converted to: 152 cm, 60 Inch) Height, Inches : 4 Inch(Converted to: 0 ft 4 Inch, 10.16 cm) Clinical Height : 162.56 cm Weight Source, ED : Critical estimated dosing weight Weight Entry Format : [place] Weight, Pounds : 152 lb Clinical Dosing Weight : 69.09 kg Body Surface Area (BSA) : 1.74 m2 Body Mass Index : 26.1 kg/m2 (HI) Beecher Body Weight (IBW) : 54.3 kg Chinyere Leonard RN - 09/04/2020 4:12 EST documented in this encounter Plan of Treatment Not on file documented as of this encounter Visit Diagnoses Not on filedocumented in this encounter Care Teams Card Reader Relationship Specialty Start Date End Date Jay Howell MD [address] [place], [place] [phone] PCP - General Emergency Medicine 11/12/23 documented as of this encounter
--- OUTSIDE RECORDS SUMMARY | 2025-10-13 13:28 | XMS_ITS | Encounter Summary ---
Author Organization [employer] ([place], [place], [place], [place], [place]) Address [address] [place] [address] Care Team Providers Care Towboat Captain Name Role Phone Jay Howell MD Primary Care Provider [phone] Encounter Details Date Type Department Care Team (Late st Contact Info) Description 08/26/2020 Transcribed Document [facility] [place] [address] [place] [address] ProviderJessie MD [address] [place] [id number] Social History Tobacco Use Types Packs/Day Years Used Date Smoking Tobacco: Never Assessed Comments Unknown Sex and Gender Information Value Date Recorded Sex Assigned at Not on file Legal Sex Female 7:30 PM CDT Gender Identity Not on file Sexual Orientation Not on file documented as of this encounter Miscellaneous Notes * Cerner Conversion Note - Historical ProviderMD - 08/26/2020 2:41 PM 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 Conversion Angle Furnaceman Cerner at 02/04/2023 2:15 PM CDT documented in this encounter Plan of Treatment Not on file documented as of this encounter Visit Diagnoses Not on filedocumented in this encounter Care Teams Towboat Captain Relationship Specialty Start Date End Date Jay Howell MD [address] [place] [phone] PCP - General Emergency Medicine 11/12/23 documented as of this encounter
--- OUTSIDE RECORDS SUMMARY | 2025-10-13 13:28 | XMS_ITS | Encounter Summary ---
Author Organization [facility] Address [address] [place] [address] Care Team Providers Care Salesperson Jewelry Name Role Phone Unavailable Primary Care Provider Unavailabl e Reason for Visit * Reason Onset Date Comments HCN Clinical Concern/Question 10/07/2025 Encounter Details Date Type Department Care Team (Late st Contact Info) Description 10/07/2025 [facility]phone [facility] [address] [facility] 5th Floor [address] [place] [address] System, Provider Not In, [address] [place] [address] HCN Clinical Concern/Question Social History Tobacco Use [...] drink first t kathleen in the morning (EYE-FILM COATER) to steady your nerves or to get rid of a hangover? 0 03/20/2024 CAGE Questionnaire Score 0 024 Utilities Answer Date Recorded In the past 12 months has th e [employer], gas, oil, or water company threatened to [...] back to schedule. Thanks! Best contact number: [phone] (mobile) Optimal time of day to reach caller: ANYTIME Additional comments/information from caller: None Note: Please do not reply to this message. Follow-up communication and further actions as a result of this message need to be communicated with the patient directly, if the patient is not active onMyChart. If the patient is active on MyChart, they will receive notification of the communication/outcome via [employer]. documented in this encounter Plan of Treatment Upcoming Encounters Date Type Department Care Team (Late st Contact Info) Description 10/24/2025 1:30 PM EST Appointment [facility] [address] [place] [address] 10/24/2025 2:20 PM EST Office Visit [facility] [address] [facility] [address] [place] [address] Zaida Nichols MD [address] [facility] [address] [place] [address] documented as of this encounter Visit Diagnoses Not on filedocumented in this encounter Additional Health Concerns Assessment Noted Time A fall risk assessment has been complete d for the patient 10/31/2024 9:56 AM EST A Body Mass Index follow-up plan has been documented for the patient 10/31/2024 10:09 AM EST documented as of this encounter
--- OUTSIDE RECORDS SUMMARY | 2025-10-13 13:28 | XMS_ITS | Encounter Summary ---
Author Organization [employer] ([place], [place], [place], [place], [place]) Address [address] [place] [address] Care Team Providers Care Over The Horizon Targeting Supervisor Name Role Phone Jay Howell MD Primary Care Provider [phone] Encounter Details Date Type Department Care Team (Late st Contact Info) Description 08/26/2020 Transcribed Document [facility] [place] [address] [place] [address] ProviderJessie MD [address] [place], [place] [address] Social History Tobacco Use Types Packs/Day Years Used Date Smoking Tobacco: Never Assessed Comments Unknown Sex and Gender Information Value Date Recorded Sex Assigned at Not on file Legal Sex Female 7:30 PM CDT Gender Identity Not on file Sexual Orientation Not on file documented as of this encounter Miscellaneous Notes * Cerner Conversion Note - Jessie ProviderMD - 08/26/2020 1:15 PM OUTPATIENT COORDINATOR [facility] Main OR IntraOp Summary Primary Physician: KAELA HEBERT MD Finalized Date/Time: 08/28/20 09:26:05 Pt. Name: SKYLER MONTOYAO.B./Sex: 1940 Female Med Rec #: [id number] Physician: BETH DAVALOS MD-INT Financial #: [id number] Pt. Type: I Room/Bed: [facility]/ Admit/Disch: 08/25/20 05:53:00 - Institution: [facility] IntraOp Case Attendance Entry 1 Entry 2 Entry 3 Case Attendee KAELA HEBERT MD GRAFF, WAYNE B, MD-ANS SWINFORD, ASHLEE, CRNA Role Performed Surgeon/Proceduralist, Anesthesiologist of OPS MANAGER/Nurse Vocational Horticulture Instructor First Record Time In 08/26/20 13:00:00 08/26/20 [...] Medrano, Saray Linton ST Role Performed Student Outside Production Inspector, First Scrub, First Time In 08/26/20 13:00:00 [...] OTHER, ATTENDEE #3 Role Performed Scrub, First Dredge Pipeman Dredge Pipeman Time In 08/26/20 13:00:00 08/26/20 13:00:00 08/26/20 [...] 14:32:23 Entry 10 Case Attendee Jos Ledezma, Punch Molder Role Performed Scrub, First Time In 08/26/20 13:50:00 Time Out 08/26/20 14:23:00 Procedure Wound Debridement Lower Extremity(Left), Aortogram Abdominal with Runoff(Left), Angioplasty Percutaneous Transluminal(Left) Other Attendee Superficial Wound Closed By: Last Modified By: Radha Medrano RN 08/26/20 14:32:23 [facility] IntraOp Case Attendance Audit 08/26/20 14:32:23 Continuous Improvement Specialist: AMAN Modifier: AMAN 1 <+> Time [...] with Runoff(Left), Angioplasty Percutaneous Transluminal(Left) 08/26/20 13:55:12 Continuous Improvement Specialist: EANAPIER Modifier: EANAPIER 6 <+> Time Out 6 <*> Procedure Wound Debridement Lower Extremity(Left), Aortogram Abdominal with Runoff(Left), Angioplasty Percutaneous Transluminal(Left) 7 <+> Time Out 7 <*> Procedure Wound Debridement Lower Extremity(Left), Aortogram Abdominal with Runoff(Left), Angioplasty Percutaneous Transluminal(Left) <+> 10 Case Attendee <+> 10 Role Performed <+> 10 Time In <+> 10 Procedure 08/26/20 13:49:11 Continuous Improvement Specialist: EANAPIER Modifier: EANAPIER 1 <*> Procedure [...] Extremity(Left), Aortogram Abdominal with Runoff(Left) 08/26/20 13:47:56 Continuous Improvement Specialist: EANAPIER Modifier: EANAPIER 1 <*> Procedure [...] Procedure Wound Debridement Lower Extremity(Left) 08/26/20 13:38:05 Continuous Improvement Specialist: EANAPIER Modifier: EANAPIER <+> 1 Time [...] 9 <*> Procedure Wound Debridement Lower Extremity(Left) [facility] IntraOp Case Times Entry 1 Patient In Room Time 08/26/20 13:00:00 Out Room Time 08/26/20 14:23:00 Anesthesia Start Time 08/26/20 13:00:00 Stop Time 08/26/20 14:23:00 Surgery / Procedure Times Start Time 08/26/20 13:15:00 Stop Time 08/26/20 14:10:00 Last Modified By: Radha Medrano RN 08/26/20 14:22:56 [facility] IntraOp Case Times Audit 08/26/20 14:22:56 Continuous Improvement Specialist: EANAPIER Modifier: EANAPIER <+> 1 Out Room Time <+> 1 Stop Time 08/26/20 14:14:55 Continuous Improvement Specialist: EANAPIER Modifier: EANAPIER <+> 1 Stop Time [facility] IntraOp Cautery Entry 1 ESU Identification Cautery Type Monopolar ESU ID Number [id number] ID Type Hospital Number Cautery Settings Cut Setting 30 Coag Setting 30 ESU Grounding Pad Ground Pad Type Adult Grounding Pad Site Right Upper Abdomen Grounding Pad Radha Medrano RN Applied By Grounding Pad Site Warm, dry and intact Skin Condition Before Cautery Grounding Pad Site Unchanged Skin Condition After Cautery Last Modified By: Radha Medrano RN 08/26/20 13:46:51 [facility] IntraOp Communication Entry 1 Communication To Other Comment [facility] REPORT Communication By Radha Medrano RN Date and Time 08/26/20 14:17:00 Last Modified By: Radha Medrano RN 08/26/20 14:16:35 [facility] IntraOp Counts Verification Entry 1 Procedure Wound Debridement Lower Extremity(Left), Aortogram Abdominal with Runoff(Left), Angioplasty Percutaneous Transluminal(Left) Count Info Count Type Sponge, Sharps, Miscellaneous Counts Verification Baseline/pre-procedure Sequence Count Results Not Applicable Counts Performed By Count Performed By LUNA RIGGINS (Scrub) Count Performed By Radha Medrano RN (RN) Last Modified By: Radha Medrano RN 08/26/20 13:49:13 [facility] IntraOp Counts Verification Audit 08/26/20 13:49:13 Continuous Improvement Specialist: EANAPIER Modifier: EANAPIER 1 <*> Procedure Wound Debridement Lower Extremity(Left), Aortogram Abdominal with Runoff(Left) 08/26/20 13:47:59 Continuous Improvement Specialist: EANAPIER Modifier: EANAPIER 1 <*> Procedure Wound Debridement Lower Extremity(Left) [facility] IntraOp Counts Final Entry 1 Procedure Wound Debridement Lower Extremity(Left), Aortogram Abdominal with Runoff(Left), Angioplasty Percutaneous Transluminal(Left) Final Count Info Count Type Sponge, Sharps, Miscellaneous Counts Verification Skin Closure/end of Sequence procedure Count Results Correct, surgeon notified Counts Performed By Count Performed By Jos Ledezma, Surgical (Scrub) Hand Crown Pouncer Count Performed By Radha Medrano RN (RN) Last Modified By: Radha Medrano RN 08/26/20 14:24:36 [facility] IntraOp Counts Final Audit 08/26/20 14:24:36 Continuous Improvement Specialist: LOVELYPIOMAYRA Modifier: EANAPIER 1 <*> Procedure Wound Debridement Lower Extremity(Left), Aortogram Abdominal with Runoff(Left), Angioplasty Percutaneous Transluminal(Left) 1 <+> Count Results 1 <+> Count Performed By (Scrub) 1 <+> Count Performed By (RN) 08/26/20 13:49:14 Continuous Improvement Specialist: LOVELYPIOMAYRA Modifier: EANAPIER 1 <*> Procedure Wound Debridement Lower Extremity(Left), Aortogram Abdominal with Runoff(Left) 08/26/20 13:48:01 Continuous Improvement Specialist: LOVELYPIOMAYRA Modifier: EANAPIER 1 <*> Procedure Wound Debridement Lower Extremity(Left) [facility] IntraOp Cultures and Spec Summary Entry 1 Cultrures and Specimens Specimen Ordered: Yes Test(s) Culture(s)/Microbiology Requested/Final Disposition Last Modified By: Radha Medrano RN 08/26/20 13:56:41 General Comments: LEFT ANTERIOR LEG WOUND. [facility] IntraOp Departure from OR Entry 1 Integumentary Assessment Integumentary WDL Assessment WDL Transfer/Handoff Transfer to PACU Phase II Handoff Method Phone call Post-op Transport Stretcher/Gurney Via Patient Transport Radha Medrano RN Accompanied by Transfer/Handoff PT TRANSPORTED TO [facility], PT STABLE Last Modified By: Radha Medrano RN 08/26/20 14:24:24 General Comments: [id number] LALA PHOTOENGRAVING PROOFER APPRENTICE [facility] IntraOp Dressing and Packing Entry 1 Type Dressing Wound Dressing Item Skin Closure Glue Applied By KAELA HEBERT MD Last Modified By: Radha Medrano RN 08/26/20 13:45:13 [facility] IntraOp Fire Risk Assessment Entry 1 Fire [...] Modified By: Radha Medrano RN 08/26/20 13:40:08 [facility] IntraOp General Case Small Arms Artillery Repairer 1 Case Information OR OR 20 [facility] Case Level 1 Room Verified Yes Wound Class II - Clean-Contaminated Specialty SN Endovascular Anesthesia Type MAC ASA Class 4 Diagnosis Preop Diagnosis LEFT LEG WOUND Postop Same As Preop No Postop Diagnosis SEE MD NOTE Last Modified By: Radha Medrano RN 08/26/20 13:44:53 [facility] IntraOp Implant Log Entry 1 Type Implant (Synthetic) Implant Log Implant DEVICE CLSR ANGIO-SEAL Identification [id number] Description Implant Quantity 1 Implant Site RIGHT Implant [id number] Identification Lot Number Implant St [facility]zad Med:Cardiac Surg Identification Rn Cvicu Name: Implant [id number] Identification Catalog Number Implant Has an Yes Expiration Date Implant Expiration 06/16/21 Date Tissue Implant Last Modified By: Radha Medrano RN 08/26/20 14:23:44 [facility] IntraOp Intraoperative Assessment Entry 1 Handoff Method [...] Modified By: Radha Medrano RN 08/26/20 13:44:22 [facility] IntraOp Intraoperative Equipment Entry 1 Type Monitoring Equipment Intraop Monitoring Electrocardiogram Three lead placement (ECG) Electrode Placement Blood Pressure Non-Invasive BP Device Source Blood Pressure Arm, right upper Location Pulse Oximeter Hand, left Probe Site Antiembolic Devices Scopes Photo/Video Documentation Last Modified By: Radha Medrano RN 08/26/20 13:43:20 [facility] IntraOp Medication Admin Entry 1 Entry 2 Entry 3 Medication/Irrigant PRM-LB VISIPAQUE 320MG lidocaine 1% 10mg/1ml COMBO heparin in NS [id number] 50ml vial - [id number] flush 2000units/1000ml --[id number] Combo Med List Time Administered Route of Administration Dose Dose 320 2000 Unit of Measure mg units Volume Administered By KAELA HEBERT MD MENES, KEITH, MD MENES, KEITH, MD Procedure Irrigation Irrigant Volume In Irrigant Volume Out Last Modified By: Radha Medrano RN Napier, Elizabeth A, RN Napier, Elizabeth A, RN 08/26/20 13:42:30 08/26/20 13:42:30 08/26/20 13:42:30 [facility] IntraOp Patient Positioning Entry 1 Procedure Wound [...] Modified By: Radha Medrano RN 08/26/20 13:49:13 [facility] IntraOp Patient Positioning Audit 08/26/20 13:49:13 Continuous Improvement Specialist: EANAPIER Modifier: EANAPIER 1 <*> Procedure Wound Debridement Lower Extremity(Left), Aortogram Abdominal with Runoff(Left) 08/26/20 13:48:00 Continuous Improvement Specialist: EANAPIER Modifier: EANAPIER 1 <*> Procedure Wound Debridement Lower Extremity(Left) [facility] IntraOp Sign In Entry 1 Patient, Site, [...] Modified By: Radha Medrano RN 08/26/20 13:31:46 [facility] IntraOp Sign Out Entry 1 RN Confirmation [...] Modified By: Radha Medrano RN 08/26/20 14:32:44 [facility] IntraOp Sign Out Audit 08/26/20 14:32:44 Continuous Improvement Specialist: AMAN Modifier: AMAN 1 <*> Specimen Labeled Correctly N/A 1 <+> RN Sign Out Signature 1 <+> RN Sign Out Signature Date/Time [facility] IntraOp Skin Prep Entry 1 Procedure Wound Debridement Lower Extremity(Left), Aortogram Abdominal with Runoff(Left), Angioplasty Percutaneous Transluminal(Left) Prescribed N/A Pre-Surgical Prep Completed Prep Area BILATERAL GROINS, LEFT LOWER LEG Intraop Prep Prep Agents Chloraprep Prep by Radha Medrano RN Hair Removal Methods No hair removal performed Last Modified By: Radha Medrano RN 08/26/20 13:49:14 [facility] IntraOp Skin Prep Audit 08/26/20 13:49:14 Continuous Improvement Specialist: AMAN Modifier: LOVELYPIER 1 <*> Procedure Wound Debridement Lower Extremity(Left), Aortogram Abdominal with Runoff(Left) 08/26/20 13:48:00 Continuous Improvement Specialist: AMAN Modifier: AMAN 1 <*> Procedure Wound Debridement Lower Extremity(Left) [facility] IntraOp Surgical Procedures Entry 1 Entry 2 [...] Clean-Contaminated II - Clean-Contaminated Last Modified By: Rdaha Medrano RN Napier, Elizabeth A, RN Napier, Elizabeth A, RN 08/26/20 14:22:50 08/26/20 14:22:50 08/26/20 14:22:50 [facility] IntraOp Surgical Procedures Audit 08/26/20 14:22:50 Continuous Improvement Specialist: AMAN Modifier: REGINANAPIER 1 <*> Procedure Wound Debridement Lower Extremity 1 <+> Stop <+> 2 Stop <+> 3 Stop 08/26/20 13:56:00 Continuous Improvement Specialist: LOVELYPIOMAYRA Modifier: REGINANAPIER 1 <*> Procedure Wound Debridement Lower Extremity 1 <*> Additional Procedure Description (LT LOWER EXTREMTIY WOUND DEBRIDEMENT WITH WOUND VAC) 08/26/20 13:48:53 Continuous Improvement Specialist: EANAPIER Modifier: EANAPIER <+> 3 Procedure <+> 3 Primary Procedure <+> 3 Modifiers <+> 3 Primary Surgeon <+> 3 Specialty <+> 3 Start <+> 3 Wound Class <+> 3 Anesthesia Type 08/26/20 13:47:52 Continuous Improvement Specialist: EANAPIER Modifier: EANAPIER <+> 2 Procedure <+> 2 Primary Procedure <+> 2 Modifiers <+> 2 Primary Surgeon <+> 2 Specialty <+> 2 Start <+> 2 Wound Class <+> 2 Anesthesia Type 08/26/20 13:43:42 Continuous Improvement Specialist: EANAPIER Modifier: EANAPIER 1 <*> Procedure Wound Debridement Lower Extremity 1 <+> Specialty 1 <*> Anesthesia Type General [facility] IntraOP Time Out Entry 1 Procedure to [...] Modified By: Radha Medrano RN 08/26/20 13:49:14 [facility] IntraOP Time Out Audit 08/26/20 13:49:14 Continuous Improvement Specialist: EANAPIER Modifier: EANAPIER 1 <*> Procedure to be Performed Wound Debridement Lower Extremity(Left), Aortogram Abdominal with Runoff(Left) 08/26/20 13:48:01 Continuous Improvement Specialist: EANAPIER Modifier: EANAPIER 1 <*> Procedure to be Performed Wound Debridement Lower Extremity(Left) [facility] IntraOp X-Ray and Images Entry 1 X-Ray/Imaging [...] for Unfinalizing 08/28/20 09:23 WATTSDR Correct Billing documented in this encounter Plan of Treatment Not on file documented as of this encounter Visit Diagnoses Not on filedocumented in this encounter Care Teams Over The Horizon Targeting Supervisor Relationship Specialty Start Date End Date Jay Howell MD [address] [place] [phone] PCP - General Emergency Medicine 11/12/23 documented as of this encounter
--- OUTSIDE RECORDS SUMMARY | 2025-10-13 13:28 | XMS_ITS | Encounter Summary ---
Author Organization [employer] ([place], [place], [place], [place], [place]) Address [address] [place] [address] Care Team Providers Care Nut Grader Name Role Phone Jay Howell MD Primary Care Provider [phone] Encounter Details Date Type Department Care Team (Late st Contact Info) Description 03/18/2021 Transcribed Document [facility] [place] [address] [place] [address] ProviderJessie MD [address] [place], [place] [phone] Social History Tobacco Use Types Packs/Day Years [...] Insurance 1 Health Plan: MEDICARE Policy Number: [id number] Authorization Number: Insurance 2 Health Plan: AARP N Policy Number: [id number] Authorization Number: Insurance Primary Name : MEDICARE Policy Number: [id number] Authorized Service Begin Date-Primary : 03/16/2021 EDT Historical Authorization Comments-Primary : No Authorization Comments Found MARILYNN RAMÍREZ, RN-Utilization Review - 03/18/2021 8:56 EDT Electronically signed by Sivan [facility] Conversion Printing Machine Mechanic Cerner at 02/04/2023 2:20 PM CDT documented in this encounter Plan of Treatment Not on file documented as of this encounter Visit Diagnoses Not on filedocumented in this encounter Care Teams Nut Grader Relationship Specialty Start Date End Date Jay Howell MD [address] [place] [phone] PCP - General Emergency Medicine 11/12/23 documented as of this encounter
--- OUTSIDE RECORDS SUMMARY | 2025-10-13 13:28 | XMS_ITS | Encounter Summary ---
Author Organization [employer] ([place], [place], [place], [place], [place]) Address [address] [place] [address] Care Team Providers Care Operations Associate Name Role Phone Jay Howell MD Primary Care Provider [phone] Encounter Details Date Type Department Care Team (Late st Contact Info) Description 09/01/2020 Transcribed Document [facility] [place] [address] [place] [address] ProviderJessie MD [address] [place] [address] Social History Tobacco Use Types Packs/Day [...] Jessie Yuen MD - 09/01/2020 9:47 AM PHARMACY RESIDENT [address] , [place] [address] Patient Copy Patient Information: Name: SKYLER MONTOYA Rajat Current Date: 09/01/2020 09:47:45 : 1940 Patient Address: [address] [place] [phone] Patient Attending Physician: SARAH CONTEH MD Primary Care Provider: TARA CHEN (REF), -MED Primary Care Provider Discharge Diagnosis: Cellulitis of leg; Hematoma of left lower leg Weight on Admission: 152 lb, 0 oz Comment: Follow-up Instructions: With: Address: When: KAVITHA HIDALGO [address], [address] [place], [place] [id number] Business (1) In 2 days 09/03/2020 Comments: needs apt scheduled prior to DC With: Address: When: TARA CHEN [address] [place] [address] Business (1) Within 2 days Comments: needs INR check We have held your Aspirin per vascular surgeon, Dr. Verde. With: Address: When: KAELA ORTAKALI [facility], [address], [address] [place] [address] Business (1) 12:30 PM Comments: F/u w/ FERNIE With: Address: When: KAELA ORTAKALI [facility], [address], [address] [place] [address] Business (1) 12:45 PM Comments: F/u WC with Irina Troy PA-C Discharge Instructions: Immunizations Documented During Stay: No Immunizations Found Heart Failure Discharge Instructions (if any): Stroke Related Discharge Instructions (if any): Warfarin Related Discharge Instructions (if any): Final Medication List: [facility], [facility] [address] [facility] [address] [place], [place] [id number], [phone] amLODIPine (Norvasc 10 mg oral tablet) 1 [...] At Bedtime as needed for anxiety/sleep. acetaminophen-hydrocodone ([place] 7.5 mg-325 mg oral tablet) 1 Tablet(s) [...] these instructions at home: Medicines ??? Take zsmu-tpd-sbvijug and prescription medicines only as told by [...] 03/21/2009 Document Revised: 02/22/2019 Document Reviewed: 02/22/2019 [employer] Patient Education ? 2019 [employer]. What You Need to Know About Warfarin [...] other medicines or supplements? Many prescription and lrzo-mfi-axagjle medicines can interfere with warfarin. Talk with your health care provider or your pharmacist before starting or stopping any new medicines. This includes ypty-rzk-nhuvoto vitamins, dietary supplements, herbal medicines, and pain medicines. Your warfarin dosage may need to be adjusted. ??? Some common awcz-bjn-oajtpgl medicines that may increase the risk of [...] that you work with a diet and instructional technology specialist (dietitian). ??? Vitamin K decreases the [...] cooked. ??? Collards, raw or cooked. ??? Guatemalan chard, raw or cooked. ??? Mustard greens, raw or cooked. ??? Turnip greens, raw or cooked. ??? Parsley, raw. ??? Broccoli, cooked. ??? Noodles, eggs, and spinach, enriched. ??? Sodus sprouts, raw or cooked. ??? Beet greens, [...] diet. ??? You start or stop any hmrb-oge-nylwebu medicine, prescription medicine, or dietary supplement. ??? [...] Reviewed: 12/29/2016 Elsevier Patient Education ? 2020 [employer] Hematoma A hematoma is a collection [...] health care provider. General instructions ??? Take wosp-wln-jxzkljr and prescription medicines only as told by [...] 05/17/2005 Document Revised: 03/08/2019 Document Reviewed: 03/08/2019 [employer] Patient Education ? 2020 [employer] CIGARETTE SMOKING: The facts are clear, cigarette smoking will shorten your life. Smoking can cause many illnesses along the way. As a healthcare provider, we recommend that you stop smoking. Assistance with quitting is available by contacting 6-649-OWWP-NOW. This is a free resource providing counseling, [...] Be sure to sign up for the [employer] patient portal, which gives you 09/05 access to your medical information ??? including these discharge instructions ??? using your computer, smartphone, or tablet. Just go to [employer] to get started. Questions? Call . [facility] would like to thank you for allowing us to assist you with your healthcare needs. MICHELE Skaggs JUDY D, (or branch customer service representative) have received the above patient education materials/instructions and have verbalized understanding: Patient Signature _ Date/Time Patient Burr Grinder Signature (if needed) Date/Time Clinician/Hospital Burr Grinder Signature (if needed) Date/Time documented in this encounter Plan of Treatment Not on file documented as of this encounter Visit Diagnoses Not on filedocumented in this encounter Care Teams Operations Associate Relationship Specialty Start Date End Date Jay Howell MD [address] [place] [phone] PCP - General Emergency Medicine 11/12/23 documented as of this encounter
--- OUTSIDE RECORDS SUMMARY | 2025-10-13 13:28 | XMS_ITS | Encounter Summary ---
Author Organization [employer] ([place], [place], [place], [place], [place]) Address [address] [place] [address] Care Team Providers Care Junior Web Developer Name Role Phone Jay Howell MD Primary Care Provider [phone] Encounter Details Date Type Department Care Team (Late st Contact Info) Description 08/26/2020 Transcribed Document [facility] [place] [address] [place] [address] ProviderJessie MD [address] [place] [phone] Social History Tobacco Use Types Packs/Day Years Used Date Smoking Tobacco: Never Assessed Comments Unknown Sex and Gender Information Value Date Recorded Sex Assigned at Not on file Legal Sex Female 7:30 PM CDT Gender Identity Not on file Sexual Orientation Not on file documented as of this encounter Miscellaneous Notes * Cerner Conversion Note - Jessie ProviderMD - 08/26/2020 2:49 PM COOK VACUUM KETTLE Patient: SKYLER MONTOYA Age: 79 years Sex: [...] filedocumented in this encounter Care Teams Junior Web Developer Relationship Specialty Start Date End Date aJy Howell MD [address] [place] [phone] PCP - General Emergency Medicine 11/12/23 documented as of this encounter
--- OUTSIDE RECORDS SUMMARY | 2025-10-13 13:28 | XMS_ITS | Encounter Summary ---
Author Organization [employer] ([place], [place], [place], [place], [place]) Address [address] [place] [address] Care Team Providers Care Shredder Tender Name Role Phone Jay Howell MD Primary Care Provider [phone] Encounter Details Date Type Department Care Team (Late st Contact Info) Description 12/12/2018 Transcribed Document [facility] Family Medicine [address] [place] [address] ProviderJessie MD [address] [place] [address] Social History Tobacco Use Types Packs/Day Years Used Date Smoking Tobacco: Never Assessed Comments Unknown Sex and Gender Information Value Date Recorded Sex Assigned at Not on file Legal Sex Female 7:30 PM CDT Gender Identity Not on file Sexual Orientation Not on file documented as of this encounter Miscellaneous Notes * Cerner Conversion Note - Jessie ProviderMD - 12/12/2018 10:41 PM TOPOLOGY TEACHER [address] [place] [id number] PERSON INFORMATION Name REGI MONTOYAY Hillary Age 77 Years 1940 Sex Female Language Nicaraguan PCP TARA CHEN (REF), -MED Marital Status Med Service Emergency Medicine Acct# Arrival 12/12/2018 20:58:00 Visit Reason Chest pain; CHEST PAIN FOR LAST 2HRS Acuity 2 - Emergent LOS 000 01:43 Depart Date: 12/12/18 10:41 PM Address: [place] [address] Comment: PROVIDER INFORMATION Provider Role Assigned Unassigned [...] please contact the Patient Resource Center at [phone]. With: Address: When: Follow-up with your occupational therapist's assistant in the morning. Return to the closest emergency department for any acute new concerns or recurrence of symptoms. Within in AM With: Address: When: TARA CHEN [address] [place] [address] Business (1) Within 2 to 3 days Comment: documented in this encounter Plan of Treatment Not on file documented as of this encounter Visit Diagnoses Not on filedocumented in this encounter Care Teams Shredder Tender Relationship Specialty Start Date End Date Jay Howell MD [address] [place] [address] PCP - General Emergency Medicine 11/12/23 documented as of this encounter
--- OUTSIDE RECORDS SUMMARY | 2025-10-13 13:28 | XMS_ITS | Encounter Summary ---
Author Organization [employer] ([place], [place], [place], [place], [place]) Address [address] [place] [address] Care Team Providers Care Viscosity Tester Name Role Phone Jay Howell MD Primary Care Provider [phone] Encounter Details Date Type Department Care Team (Late st Contact Info) Description 08/26/2020 Transcribed Document [facility] [place] [address] [place] [address] ProviderJessie MD [address] [place], [place] [address] Social History Tobacco Use Types Packs/Day Years Used Date Smoking Tobacco: Never Assessed Comments Unknown Sex and Gender Information Value Date Recorded Sex Assigned at Not on file Legal Sex Female 7:30 PM CDT Gender Identity Not on file Sexual Orientation Not on file documented as of this encounter Miscellaneous Notes * Cerner Conversion Note - Jessie ProviderMD - 08/26/2020 1:15 PM [facility] Main OR Preop Summary Primary Physician: KAELA HEBERT MD Finalized Date/Time: 08/26/20 13:59:45 Pt. Name: SKYLER MONTOYA.O.B./Sex: 1940 Female Med Rec #: [id number] Physician: BETH DAVALOS MD-INT Financial #: [id number] Pt. Type: I Room/Bed: [facility]/ Admit/Disch: 08/25/20 05:53:00 - Institution: [facility] PreOp Case Times Entry 1 In Preop 08/26/20 10:52:00 Ready for Holding n/a Room Patient Ready for 08/26/20 11:30:00 Surgery Patient Out of Preop 08/26/20 12:57:00 Patient Out of n/a Holding Room Last Modified By: CARLTON GUTIERREZ 08/26/20 13:59:44 [facility] PreOp Case Times Audit 08/26/20 13:59:44 Heavy Duty Mechanic: BEATRISFEVJ Modifier: GAHAFEVJ <+> 1 Patient Out of Preop 08/26/20 11:36:02 Heavy Duty Mechanic: BEATRISFEVJ Modifier: GAHAFEVJ <+> 1 Patient Ready for Surgery Finalized By: CARLTON GUTIERREZ Document Signatures Signed By: CARLTON GUTIERREZ 08/26/20 13:59 Electronically signed by Sivan [facility] Conversion Contracts Paralegal Cerner at 02/04/2023 2:16 PM CDT documented in this encounter Plan of Treatment Not on file documented as of this encounter Visit Diagnoses Not on filedocumented in this encounter Care Teams Viscosity Tester Relationship Specialty Start Date End Date Jay Howell MD [address] [place] [phone] PCP - General Emergency Medicine 11/12/23 documented as of this encounter
--- OUTSIDE RECORDS SUMMARY | 2025-10-13 13:28 | XMS_ITS | Encounter Summary ---
Author Organization [employer] ([place], [place], [place], [place], [place]) Address [address] [place] [address] Care Team Providers Care Multiple Tube Winding Machine Operator Name Role Phone Jay Howell MD Primary Care Provider [phone] Encounter Details Date Type Department Care Team (Late st Contact Info) Description 08/26/2020 Transcribed Document [facility] [address] [place] [address] ProviderJessie MD [address] [place], [place] [address] Social History Tobacco Use Types Packs/Day Years Used Date Smoking Tobacco: Never Assessed Comments Unknown Sex and Gender Information Value Date Recorded Sex Assigned at Not on file Legal Sex Female 7:30 PM CDT Gender Identity Not on file Sexual Orientation Not on file documented as of this encounter Miscellaneous Notes * Cerner Conversion Note - Historical ProviderMD - 08/26/2020 2:23 PM CASING MIXER Patient: SKYLER MONTOYA Age: 79 Years Sex: [...] LEFT PT occlusion - distal *Operation RIGHT DAIRY GRAZER access - ultrasound guided Aortogram with LEFT lower extremity run-off LEFT PT angioplasty (2.5-0u837id Nan[employer]) LEFT peroneal angioplasty (2.5-5u117fz Nanocross) RIGHT DAIRY GRAZER closure (Angioseal) LEFT leg debridement *Surgeon Elie Verde MD Anesthesia MAC *Estimated Blood Loss Minimal *Findings By aortogram, the distal abdominal aorta is patent. On the RIGHT, the common iliac (NILAY), internal iliac (IIA) and external iliac (EIA) arteries are patent. Beyond this point, the vasculature was not specifically interrogated. On the LEFT, the NILAY, IIA and EIA are patent. The common femoral (DAIRY GRAZER) artery is patent dividing into the profunda [...] The patient was placed supine on the laboratory analyst table and the BILATERAL groins and LEFT leg were prepped and draped in usual sterile fashion. The patient was identified as SKYLER MONTOYA by the entire procedural team as per time out protocol. Next, local anesthetic was infiltrated into the groin region. The RIGHT DAIRY GRAZER was accessed in retrograde fashion under ultrasound guidance using micropuncture technique and a 5Fr sheath was installed. Next, an Omni flush catheter was advanced into the infrarenal aorta and an aortogram was obtained; see above. Next, the catheter and 035/260 glide advantage wire (GAW) were directed up-and-over into the LEFT DAIRY GRAZER and additional run-off views were obtained in station; see above. Next, the sheath was upsized to a 6Fr/45cm destination sheath which was positioned in the LEFT DAIRY GRAZER. The patient was then systemically heparinized. Next, [...] 13:15:00 (08/26/20 13:48:53) Electronically signed by Sivan [facility] Conversion Chauffeur [employer] Limousine Cerner at 02/04/2023 2:09 PM CDT documented in this encounter Plan of Treatment Not on file documented as of this encounter Visit Diagnoses Not on filedocumented in this encounter Care Teams Multiple Tube Winding Machine Operator Relationship Specialty Start Date End Date Jay Howell MD [address] [place] [phone] PCP - General Emergency Medicine 11/12/23 documented as of this encounter
--- OUTSIDE RECORDS SUMMARY | 2025-10-13 13:28 | XMS_ITS | Encounter Summary ---
Author Organization [employer] ([place], [place], [place], [place], [place]) Address [address] [place] [address] Care Team Providers Care Coal Cutting Machine Operator Name Role Phone Jay Howell MD Primary Care Provider [phone] Encounter Details Date Type Department Care Team (Late st Contact Info) Description 09/01/2020 Transcribed Document [facility] Family Medicine [address] [place] [address] ProviderJessie MD [address] [place], [place] [address] Social History Tobacco Use Types Packs/Day Years Used Date Smoking Tobacco: Never Assessed Comments Unknown Sex and Gender Information Value Date Recorded Sex Assigned at Not on file Legal Sex Female 7:30 PM CDT Gender Identity Not on file Sexual Orientation Not on file documented as of this encounter Miscellaneous Notes * Cerner Conversion Note - Jessie Yuen MD - 09/01/2020 9:57 AM SENIOR PROGRAM ANALYST TARA CHEN, [address] [place] [address] Re: SKYLER MONTOYA Date of Visit: 08/25/2020 [...] is strictly prohibited. Sincerely, KAREN PUTNAM [address] [facility] [address] [place] [address] The following document(s) were included in the letter: September 01, 2020 09:27:18 EST - (09/01/2020) Discharge Note Electronically signed by Sivan [facility] Conversion Link Trainer Operator Cerner at 02/04/2023 2:03 PM CDT documented in this encounter Plan of Treatment Not on file documented as of this encounter Visit Diagnoses Not on filedocumented in this encounter Care Teams Coal Cutting Machine Operator Relationship Specialty Start Date End Date Jay Howell MD [address] [place] [phone] PCP - General Emergency Medicine 11/12/23 documented as of this encounter
--- OUTSIDE RECORDS SUMMARY | 2025-10-13 13:28 | XMS_ITS | Encounter Summary ---
Author Organization [employer] ([place], [place], [place], [place], [place]) Address [address] [place] [address] Care Team Providers Care Cardboard Cutter Name Role Phone Jay Howell MD Primary Care Provider [phone] Encounter Details Date Type Department Care Team (Late st Contact Info) Description 12/12/2018 Transcribed Document [facility] [place] [address] [place] [address] ProviderJessie MD [address] [place] [phone] Social History Tobacco Use Types Packs/Day Years Used Date Smoking Tobacco: Never Assessed Comments Unknown Sex and Gender Information Value Date Recorded Sex Assigned at Not on file Legal Sex Female 7:30 PM CDT Gender Identity Not on file Sexual Orientation Not on file documented as of this encounter Miscellaneous Notes * Cerner Conversion Note - Jessie ProviderMD - 12/12/2018 10:20 PM NON DESTRUCTIVE TESTER Electronically signed by [facility] Conversion Sales And Events Coordinator Cerner at 02/04/2023 1:59 PM CDT documented in this encounter Plan of Treatment Not on file documented as of this encounter Visit Diagnoses Not on filedocumented in this encounter Care Teams Cardboard Cutter Relationship Specialty Start Date End Date Jay Howell MD [address] [place] [phone] PCP - General Emergency Medicine 11/12/23 documented as of this encounter
--- OUTSIDE RECORDS SUMMARY | 2025-10-13 13:28 | XMS_ITS | Encounter Summary ---
Author Organization [employer] ([place], [place], [place], [place], [place]) Address [address] [place] [address] Care Team Providers Care Patient Intake Coordinator Name Role Phone Jay Howell MD Primary Care Provider [phone] Encounter Details Date Type Department Care Team (Late st Contact Info) Description 12/12/2018 Transcribed Document [facility] Family Medicine [address] [place] [address] ProviderJessie MD [address] [place] [address] Social History Tobacco Use Types Packs/Day Years Used Date Smoking Tobacco: Never Assessed Comments Unknown Sex and Gender Information Value Date Recorded Sex Assigned at Not on file Legal Sex Female 7:30 PM CDT Gender Identity Not on file Sexual Orientation Not on file documented as of this encounter Miscellaneous Notes * Cerner Conversion Note - Jessie Yuen MD - 12/12/2018 9:44 PM RFID ANALYST Patient: SKYLER MONTOYA Age: 77 years [...] L arm. reports seen bt card in [place] for same earlier this week, reports she [...] and was advised to follow-up with her telecommunications clerk. She had labs done this morning, but [...] wants to go home and see her telecommunications clerk tomorrow. Review of Systems Additional review of [...] normal sinus rhythm, No ST changes, normal IN & QRS intervals, EP Interp. Results review: [...] % 36.4 % Lymph # 2.22 x10(3)/uL [place] % 10.7 % HI [place] # 0.65 K/uL Eos % 0.0 % [...] evaluation at any time. Advised follow-up with telecommunications clerk in the morning and return to the closest ER for any recurrence or worsening of symptoms.. Impression and Plan Diagnosis Chest pain - Discharge, Medical Plan Condition: Stable. Patient was given the following educational materials: Angina Pectoris. Follow up with: TARA CHEN Within 2 to 3 days; Follow-up with your telecommunications clerk in the morning. Return to the closest emergency department for any acute new concerns or recurrence of symptoms. Within in AM. Counseled: Patient, Family, Regarding diagnosis, Regarding diagnostic results, Regarding treatment plan, Patient indicated understanding of instructions. documented in this encounter Plan of Treatment Not on file documented as of this encounter Visit Diagnoses Not on filedocumented in this encounter Care Teams Patient Intake Coordinator Relationship Specialty Start Date End Date Jay Howell MD [address] [place] [phone] PCP - General Emergency Medicine 11/12/23 documented as of this encounter
--- OUTSIDE RECORDS SUMMARY | 2025-10-13 13:28 | XMS_ITS | Encounter Summary ---
Author Organization [employer] ([place], [place], [place], [place], [place]) Address [address] [place] [address] Care Team Providers Care Cq Developer Name Role Phone Jay Howell MD Primary Care Provider [phone] Encounter Details Date Type Department Care Team (Late st Contact Info) Description 09/01/2020 Transcribed Document [facility] [place] [address] [place] [address] ProviderJessie MD [address] [place] [id number] Social History Tobacco Use Types Packs/Day Years Used Date Smoking Tobacco: Never Assessed Comments Unknown Sex and Gender Information Value Date Recorded Sex Assigned at Not on file Legal Sex Female 7:30 PM CDT Gender Identity Not on file Sexual Orientation Not on file documented as of this encounter Miscellaneous Notes * [employer]ner Conversion Note - Jessie Yuen MD - 09/01/2020 1:19 PM MECHANICAL RELIABILITY ENGINEER Final Discharge Planning Entered On: 09/01/2020 13:20 EST Performed On: 09/01/2020 13:19 EST by KAVITA PELLETIER RN-Benefits Coordinator Final Discharge Planning Discharge Arrangements : Patient Post-Acute Information Patient Name: SKYLER MONTOYA Gender: Female : [birth year] Age: 79 Years [place] Referral(s): Service: Organization: Business Address: Phone Number: [address], [address] Patient Offered Choice/Affiliations Explained : [...] Services (Related/SOC within 3 days)-06 KAVITA PELLETIER RN-Benefits Coordinator - 09/01/2020 13:19 EST Final Narrative Note Final Narrative Note : INR-1.4. Pt will dc home today on Lovenox to bridge Coumadin. Orders for HH to INR sent to [facility] and hui jauregui in intake and of pt's dc home today. F/u appts scheduled with PCP, Vasc, and ID. No other CM needs noted. KAVITA PELLETIER RN-Benefits Coordinator - 09/01/2020 13:19 EST Electronically signed by Sivan, [facility] Conversion Locomotive Firer/Fireman Cerner at 02/04/2023 2:17 PM CDT documented in this encounter Plan of Treatment Not on file documented as of this encounter Visit Diagnoses Not on filedocumented in this encounter Care Teams Cq Developer Relationship Specialty Start Date End Date Jay Howell MD [address] [place] [phone] PCP - General Emergency Medicine 11/12/23 documented as of this encounter
--- OUTSIDE RECORDS SUMMARY | 2025-10-13 13:28 | XMS_ITS | Encounter Summary ---
Author Organization [employer] ([place], [place], [place], [place], [place]) Address [address] [place] [address] Care Team Providers Care Electronic Equipment Repairer Name Role Phone Jay Howell MD Primary Care Provider [phone] Encounter Details Date Type Department Care Team (Late st Contact Info) Description 08/26/2020 Transcribed Document [facility] Family Medicine [address] [place] [address] ProviderJessie MD [address] [place], [place] [id number] Social History Tobacco Use Types Packs/Day Years Used Date Smoking Tobacco: Never Assessed Comments Unknown Sex and Gender Information Value Date Recorded Sex Assigned at Not on file Legal Sex Female 7:30 PM CDT Gender Identity Not on file Sexual Orientation Not on file documented as of this encounter Miscellaneous Notes * [employer]ner Conversion Note - Jessie ProviderMD - 08/26/2020 12:15 PM HYDRAULIC ROCK DRILL OPERATOR Peripheral Nerve Block Entered On: 08/26/2020 12:27 [...] - 08/26/2020 12:25 EST Electronically signed by [facility], [facility] Conversion Enlisted Advisor Cerner at 02/04/2023 2:08 PM CDT documented in this encounter Plan of Treatment Not on file documented as of this encounter Visit Diagnoses Not on filedocumented in this encounter Care Teams Electronic Equipment Repairer Relationship Specialty Start Date End Date Jay Howell MD [address] [place] [phone] PCP - General Emergency Medicine 11/12/23 documented as of this encounter
--- OUTSIDE RECORDS SUMMARY | 2025-10-13 13:28 | XMS_ITS | Clinical Summary ---
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 (SNOMED CT) Active Arlen Feng Peripheral vascular disease Benign Essential Hypertension 1205670 (SNOMED CT) Active Arlen Feng Benign essential hypertension Medications Medication Instructions Start Date Stop Date Generic Name [facility] Provider VALSARTAN 160 MG TABS 1 tablet po daily VALSARTAN 75863130709 Leti Dela Cruz ALPRAZOLAM 0.5 MG TABS Take one by mouth daily/PRN ALPRAZOLAM 93819284422 Lexi Nascimentodox VIBRAMYCIN 100 MG ORAL CAPSULE Take by mouth twice a day DOXYCYCLINE HYCLATE 54293269914 Lexi Gipson TERBINAFINE HCL 250 MG TABS Take one by mouth daily TERBINAFINE HCL 33795799895 Lexi Gipson RANEXA 1000 MG ORAL TABLET EXTENDED RELEASE 12 HOUR Take by mouth twice a day RANOLAZINE 02414220491 Lexi Gpison CLOPIDOGREL BISULFATE 75 MG TABS Take one by mouth daily CLOPIDOGREL BISULFATE 78198090877 Lexi Nascimentodox OMEPRAZOLE 40 MG CPDR Take one by mouth daily OMEPRAZOLE 26842829041 Lexi Nascimentodox NORVASC 10 MG TABS Take one by mouth daily AMLODIPINE BESYLATE 07874553165 Lexi Nascimentodox HYDROCODONE-ACET AMINOPHEN 7.5-325 MG TABS Q6H/PRN HYDROCODONE-ACET AMINOPHEN 79161522073 Lexi Nascimentodox DAILY MULTIVITAMIN CAPS Take one by mouth daily MULTIPLE VITAMINS-MINERAL S 48959649606 Lexi Nascimentodox METFORMIN HCL 500 MG TABS Take by mouth twice a day METFORMIN HCL 62148248004 Lexi Thorpex LOVENOX 60 MG/0.6ML SUBCUTANEOUS SOLUTION 70 mg, SubCutaneous, Q12H ENOXAPARIN SODIUM 97206626791 Lexi Nascimentodox LOSARTAN POTASSIUM 100 MG TABS Take one by mouth daily LOSARTAN POTASSIUM 73580491172 Lexi Nascimentodox ACIDOPHILUS LACTOBACILLUS CAPS Take two by mouth daily LACTOBACILLUS 45499218228 Lexi Gipson HYDRALAZINE HCL 50 MG TABS 2 Tab, Oral, BID HYDRALAZINE HCL 76229538043 Lexi Thorpex DORZOLAMIDE HCL 2 % SOLN 1 Drop, Eye Right, BID DORZOLAMIDE HCL 42589244065 Lexi [employer] WARFARIN SODIUM 3 MG TABS Take one by mouth daily WARFARIN SODIUM 21544523561 Lexi Nascimentodox CARVEDILOL 6.25 MG TABS Take one by mouth 3 times daily, morning, afternoon and evening. CARVEDILOL 03585842305 Lexi [employer]odox ATORVASTATIN CALCIUM 80 MG TABS Take one by mouth daily ATORVASTATIN CALCIUM 36869250720 Lexi Gipson AMOXICILLIN-POT CLAVULANATE 875-125 MG TABS Take by mouth twice a day AMOXICILLIN-POT CLAVULANATE 17739798565 Lexi Gipson Medications Administered No information available. [...]
--- OUTSIDE RECORDS SUMMARY | 2025-10-13 13:29 | XMS_ITS | Encounter Summary ---
Author Organization [employer] ([place], [place], [place], [place], [place]) Address [address] [place] [address] Care Team Providers Care Behavioral Assistant Name Role Phone Jay Howell MD Primary Care Provider [phone] Encounter Details Date Type Department Care Team (Late st Contact Info) Description 06/12/[address] [facility] [place] Family Medicine [address] [place] [address] ProviderJessie MD [address] [place] [address] [phone] Social History Tobacco Use Types Packs/Day Years [...] : 2 - Emergent Tracking Group : [facility] ED Roni Peralta RN - 06/12/2020 21:31 [...] 21:35:03 EDT) Problems(Active) Apnea, sleep (SNOMED CT :996451863 ) Name of Problem: Apnea, sleep ; Recorder: JUAN LUIS GIL RN; Confirmation: Confirmed ; Classification: Medical ; Code: [id number] ; Contributor System: PowerChart ; Last Updated: 11/12/2014 10:12 EST ; Life Cycle Date: 11/12/2014 ; Life Cycle Status: Active ; Vocabulary: SNOMED CT Arthritis (SNOMED CT :0417319 ) Name of Problem: Arthritis ; Recorder: KENYON CHAMBERS RN; Confirmation: Confirmed ; Classification: Medical ; Code: 9212756 ; Contributor System: PowerChart ; Last Updated: 04/10/2016 8:04 EDT ; Life Cycle Date: 08/13/2013 ; Life Cycle Status: Active ; Vocabulary: SNOMED CT Atrial fibrillation with RVR (SNOMED CT :5674884976 ) Name of Problem: Atrial fibrillation with RVR ; Recorder: SANG RICO APRN; Confirmation: Confirmed ; Classification: Medical ; Code: 7331862868 ; Contributor System: PowerChart ; Last Updated: 04/10/2016 8:05 EDT ; Life Cycle Date: 04/10/2016 ; Life Cycle Status: Active ; Responsible Provider: SANG RICO APRN; Vocabulary: SNOMED CT Blood clot (SNOMED CT :500367331 ) Name of Problem: Blood clot ; Recorder: KENYON CHAMBERS RN; Confirmation: Confirmed ; Classification: Patient Stated ; Code: 339180111 ; Contributor System: PowerChart ; Last Updated: [...] Vocabulary: Patient Care Chest pain (SNOMED CT :36240188 ) Name of Problem: Chest pain ; Recorder: SANG RICO APRN; Confirmation: Complaint of ; Classification: Medical ; Code: 31601828 ; Contributor System: PowerChart ; Last Updated: 04/10/2016 8:05 EDT ; Life Cycle Status: Active ; Responsible Provider: SANG RICO APRN; Vocabulary: SNOMED CT Chronic anticoagulation (SNOMED CT :732806141 ) Name of Problem: Chronic anticoagulation ; Recorder: SANG RICO APRN; Confirmation: Confirmed ; Classification: Medical ; Code: 364096951 ; Contributor System: PowerChart ; Last Updated: 04/10/2016 8:05 EDT ; Life Cycle Date: 04/10/2016 ; Life Cycle Status: Active ; Responsible Provider: SANG RICO APRN; Vocabulary: SNOMED CT Clotting disorder (SNOMED CT :649565270 ) Name of Problem: Clotting disorder ; Recorder: KENYON CHAMBERS RN; Confirmation: Confirmed ; Classification: Patient Stated ; Code: 579905592 ; Contributor System: PowerChart ; Last Updated: 03/28/2014 19:29 EDT ; Life Cycle Date: 08/13/2013 ; Life Cycle Status: Active ; Vocabulary: SNOMED CT COPD (SNOMED CT :80589589 ) Name of Problem: COPD ; Recorder: KENYON CHAMBERS RN; Confirmation: Confirmed ; Classification: Medical ; Code: 73538432 ; Contributor System: PowerChart ; Last Updated: 04/10/2016 8:03 EDT ; Life Cycle Date: 08/13/2013 ; Life Cycle Status: Active ; Vocabulary: SNOMED CT Coronary artery disease (SNOMED CT :9570673929 ) Name of Problem: Coronary artery disease ; Recorder: KENYON CHAMBERS RN; Confirmation: Confirmed ; Classification: Medical ; Code: 3700505163 ; Contributor System: PowerChart ; Last Updated: 04/10/2016 8:03 EDT ; Life Cycle Date: 08/13/2013 ; Life Cycle Status: Active ; Vocabulary: SNOMED CT Diabetes mellitus (SNOMED CT :564496883 ) Name of Problem: Diabetes mellitus ; Recorder: KENYON CHAMBERS RN; Confirmation: Confirmed ; Classification: Medical ; Code: 318156244 ; Contributor System: PowerChart ; Last Updated: 04/10/2016 8:04 EDT ; Life Cycle Date: 08/13/2013 ; Life Cycle Status: Active ; Vocabulary: SNOMED CT Emphysema (SNOMED CT :191126467 ) Name of Problem: Emphysema ; Recorder: JUAN LUIS GIL RN; Confirmation: Confirmed ; Classification: Medical ; Code: 838438881 ; Contributor System: PowerChart ; Last Updated: 11/12/2014 10:11 EST ; Life Cycle Date: 11/12/2014 ; Life Cycle Status: Active ; Vocabulary: SNOMED CT GERD - Gastro-esophageal reflux disease (SNOMED CT :9867273395 ) Name of Problem: GERD - Gastro-esophageal reflux disease ; Recorder: KENYON CHAMBERS RN; Confirmation: Confirmed ; Classification: Medical ; Code: 9691046192 ; Contributor System: PowerChart ; Last Updated: [...] Patient Care High blood pressure (SNOMED CT :30011910 ) Name of Problem: High blood pressure ; Recorder: KENYON CHAMBERS RN; Confirmation: Confirmed ; Classification: Medical ; Code: 12526684 ; Contributor System: PowerChart ; Last Updated: 04/10/2016 8:03 EDT ; Life Cycle Date: 08/13/2013 ; Life Cycle Status: Active ; Vocabulary: SNOMED CT History of obstructive sleep apnea (IMO :83482015 ) Name of Problem: History of obstructive sleep apnea ; Recorder: SYSTEM, SYSTEM; Confirmation: Confirmed ; Classification: Medical ; Code: 69429841 ; Last Updated: 12/20/2018 12:01 EST ; Life Cycle Date: 12/20/2018 ; Life Cycle Status: Active ; Vocabulary: IMO Hx of pulmonary embolus (SNOMED CT :454284680 ) Name of Problem: Hx of pulmonary embolus ; Recorder: SANG RICO APRN; Confirmation: Confirmed ; Classification: Medical ; Code: 080347812 ; Contributor System: PowerChart ; Last Updated: 04/10/2016 8:05 EDT ; Life Cycle Date: 04/10/2016 ; Life Cycle Status: Active ; Responsible Provider: SANG RICO APRN; Vocabulary: SNOMED CT Hyperlipidemia (SNOMED CT :73948872 ) Name of Problem: Hyperlipidemia ; Recorder: KENYON CHAMBERS RN; Confirmation: Confirmed ; Classification: Medical ; Code: 29549226 ; Contributor System: MagikflixChart ; Last Updated: 04/10/2016 8:03 EDT ; Life Cycle Date: 08/13/2013 ; Life Cycle Status: Active ; Vocabulary: SNOMED CT Multiple renal cysts (SNOMED CT :257798039 ) Name of Problem: Multiple renal cysts ; Recorder: KENYON CHAMBERS RN; Confirmation: Confirmed ; Classification: Medical ; Code: 434576526 ; Contributor System: MagikflixChart ; Last Updated: 04/10/2016 8:04 EDT ; Life Cycle Date: 08/13/2013 ; Life Cycle Status: Active ; Vocabulary: SNOMED CT Stented coronary artery (SNOMED CT :1126604485 ) Name of Problem: Stented coronary artery ; Recorder: KENYON CHAMBERS RN; Confirmation: Confirmed ; Classification: Medical ; Code: 4755633500 ; Contributor System: PowerChart ; Last Updated: 04/10/2016 8:03 EDT ; Life Cycle Date: 08/13/2013 ; Life Cycle Status: Active ; Vocabulary: SNOMED CT UTI - Urinary tract infection (SNOMED CT :6051354840 ) Name of Problem: UTI - Urinary tract infection ; Recorder: KENYON CHAMBERS RN; Confirmation: Confirmed ; Classification: Medical ; Code: 7989531280 ; Contributor System: PowerChart ; Last Updated: 04/10/2016 8:04 EDT ; Life Cycle Date: 08/13/2013 ; Life Cycle Status: Active ; Vocabulary: SNOMED CT Diagnoses(Active) Chest pain Date: 06/12/2020 ; Diagnosis Type: Reason For Visit ; Confirmation: Complaint of ; Clinical Dx: Chest pain ; Classification: Medical ; Clinical Service: Emergency medicine ; Code: PNED ; Probability: 0 ; Diagnosis Code: [id number] ED Height and Weight Height Source : Stated Height Entry Format : [place] Height, Feet : 5 ft(Converted to: 152 cm, 60 Inch) Height, Inches : 3 Inch(Converted to: 0 ft 3 Inch, 7.62 cm) Clinical Height : 160.02 cm Weight Source, ED : Critical estimated dosing weight Weight Entry Format : [place] Weight, Pounds : 161 lb Clinical Dosing Weight : 73.18 kg Body Surface Area (BSA) : 1.77 m2 Body Mass Index : 28.6 kg/m2 (HI) [place] Body Weight (IBW) : 52.02 kg Roin Peralta RN - 06/12/2020 21:31 EDT Electronically signed by Sivan [facility] Conversion Resource Protection Specialist Cerner at 02/04/2023 2:18 PM CDT documented in this encounter Plan of Treatment Not on file documented as of this encounter Visit Diagnoses Not on filedocumented in this encounter Care Teams Behavioral Assistant Relationship Specialty Start Date End Date Jay Howell MD [address] [place] [phone] PCP - General Emergency Medicine 11/12/23 documented as of this encounter
--- OUTSIDE RECORDS SUMMARY | 2025-10-13 13:29 | XMS_ITS | Encounter Summary ---
Author Organization [employer] ([place], [place], [place], [place], [place]) Address [address] [place] [address] Care Team Providers Care Hydroponics Worker Name Role Phone Jay Howell MD Primary Care Provider [phone] Encounter Details Date Type Department Care Team (Late st Contact Info) Description 03/19/2021 Transcribed Document [facility] [place] [address] [place] [address] ProviderJessie MD [address] [place], [place] [address]131 Social History Tobacco Use Types Packs/Day Years [...] 2. Calcification of the vertebral origins with vokp-cm-junwqtwl stenosis. 3. Extensive vascular calcification. 4. Severe [...] difficult. The CTA also shows bilateral proximal AUTOMOTIVE TIRE TESTER stenoses. The differential could include one or [...] on filedocumented in this encounter Care Teams Hydroponics Worker Relationship Specialty Start Date End Date Jay Howell MD [address] [place] [phone] PCP - General Emergency Medicine 11/12/23 documented as of this encounter
--- OUTSIDE RECORDS SUMMARY | 2025-10-13 13:29 | XMS_ITS | Encounter Summary ---
Author Organization [employer] ([place], [place], [place], [place], [place]) Address [address] [place] [address] Care Team Providers Care Aegis Console Operator Track Name Role Phone Jay Howell MD Primary Care Provider [phone] Encounter Details Date Type Department Care Team (Late st Contact Info) Description 07/18/2021 Transcribed Document [facility] Family Medicine [address] [place] [address] ProviderJessie MD [address] [place], [place] [phone] Social History Tobacco Use Types Packs/Day Years [...] 07/18/2021 20:32 EDT Electronically signed by Sivan [facility] Conversion Public Information Director Cerner at 02/04/2023 2:17 PM CDT documented in this encounter Plan of Treatment Not on file documented as of this encounter Visit Diagnoses Not on filedocumented in this encounter Care Teams Aegis Console Operator Track Relationship Specialty Start Date End Date Jay Howell MD [address] [place] [phone] PCP - General Emergency Medicine 11/12/23 documented as of this encounter
--- OUTSIDE RECORDS SUMMARY | 2025-10-13 13:29 | XMS_ITS | Referral Summary ---
Author Organization [employer] ([place], [place], [place], [place], [place]) Address [address] [place] [address] Care Team Providers Care Offset Label Rewinder Name Role Phone Jay Howell MD Primary Care Provider [phone] Allergies Active Allergy Reactions Criticality Noted Date [...] Date Kennedy rded Speak language other than Taiwanese at home Not on file 10/30/2023 Want [...] on file Insurance MEDICARE PART A B [facility] Advance Directives For more information, please contact: [phone] * Full Code (Latest Code Status on File) Date Activated Date Inactivated Comments 11/25/2022 10:41 AM 11/26/2022 5:33 PM * Full Code Date Activated Date Inactivated Comments 11/25/2022 8:11 AM 11/25/2022 10:41 AM -Attempt Resu scitation if person has no pulse and is not breathing. -If no pulse or not breathing attempt CPR/CODE. -Call Rapid Response if patient is in distress. Care Teams Offset Label Rewinder Relationship Specialty Start Date End Date Jay Howell MD [address] [place] [phone] PCP - General Emergency Medicine 11/12/23
--- OUTSIDE RECORDS SUMMARY | 2025-10-13 13:29 | XMS_ITS | Encounter Summary ---
Author Organization [employer] ([place], [place], [place], [place], [place]) Address [address] [place] [address] Care Team Providers Care Electric Motor Mechanic Name Role Phone Jay Howell MD Primary Care Provider [phone] Encounter Details Date Type Department Care Team (Late st Contact Info) Description 03/19/2021 Transcribed Document [facility] [place] [address] [place] [address] ProviderJessie MD [address] [place] [address] [phone] Social History Tobacco Use Types Packs/Day Years [...] 2. Calcification of the vertebral origins with ksdh-kl-etldfsiq stenosis. 3. Extensive vascular calcification. 4. Severe [...] up with hand surgery next week, her waterproofer in 2-4 weeks and neurologist 4-8 weeks. [...] [facility]er or [facility]ell on March 23 or [facility] - Within 6 weeks Discharge Medications (14) [...] 03/17/21 10:56:00 EDT, Cardiac Diet, 60 gm carbs:[id number] george, Isolation: Standard Precautions, Instructions: Diabetic Diet Patient Discharge Summary Orders Discharge Follow Up Instructions: Follow Up Instructions: f/u Dr. Comer or Anabell ( Hand Surgery) on d/c. [phone] Activity: Discharge Activity: Activity as tolerated Diet: [...] filedocumented in this encounter Care Teams Electric Motor Mechanic Relationship Specialty Start Date End Date Jay Howell MD [address] [place] [phone] PCP - General Emergency Medicine 11/12/23 documented as of this encounter
--- OUTSIDE RECORDS SUMMARY | 2025-10-13 13:29 | XMS_ITS | Encounter Summary ---
Author Organization [employer] ([place], [place], [place], [place], [place]) Address [address] [place] [address] Care Team Providers Care Interior Mechanic Name Role Phone Jay Howell MD Primary Care Provider [phone] Encounter Details Date Type Department Care Team (Late st Contact Info) Description 03/16/2021 Transcribed Document [facility] [place] [address] [place] [address] ProviderJessie MD [address] [place], [place] [address]22[address] Social History Tobacco Use Types Packs/Day Years Used Date Smoking Tobacco: Never Assessed Comments Unknown Sex and Gender Information Value Date Recorded Sex Assigned at Not on file Legal Sex Female 7:30 PM CDT Gender Identity Not on file Sexual Orientation Not on file documented as of this encounter Miscellaneous Notes * [employer] Conversion Note - Jessie ProviderMD - 03/16/2021 11:24 AM CDT [place] Suicide Severity Rating Scale (C-SSRS) Entered On: 03/16/2021 12:59 EDT Performed On: 03/16/2021 12:57 EDT by Viri Gonsales RN [place] Suicide Severity Rating Scale (C-SSRS) CSSRS Past [...] on filedocumented in this encounter Care Teams Interior Mechanic Relationship Specialty Start Date End Date Jay Howell MD [address] [place] [phone] PCP - General Emergency Medicine 11/12/23 documented as of this encounter
--- OUTSIDE RECORDS SUMMARY | 2025-10-13 13:29 | XMS_ITS | Encounter Summary ---
Author Organization [employer] ([place], [place], [place], [place], [place]) Address [address] [place] [place] [address] Care Team Providers Care Powertrain Control Systems Engineer Name Role Phone Jay Howell MD Primary Care Provider [phone] Encounter Details Date Type Department Care Team (Late st Contact Info) Description 06/12/2020 Transcribed Document [facility] [place] [address] [place] [address] ProviderJessie MD [address] [place] [address] Social History Tobacco Use Types Packs/Day Years [...] Years. Coronary artery bypass graft (SNOMED CT 989936512) in 1992 at 52 Years. femur repair. Appendectomy (SNOMED CT 242703811). uterine suspension. Hysterectomy (SNOMED CT 849879032). back surgury. Cholecystectomy (SNOMED CT 62670473). Hip replacement (SNOMED CT 8171997133). cataract surgury., Reviewed as documented in chart. [...] EDT Height Source Stated Height Entry Format [place] Height/Length, DJIBOUTIAN (ft) 5 ft Height/Length DJIBOUTIAN 3 Inch CLINICALHEIGHT 160.02 cm [place] Body Weight 52.02 kg Weight Source, ED Critical estimated dosing weight Weight Entry Format [place] Weight Panamanian lb 161 lb CLINICALWEIGHT 73.18 kg Body [...] % 34.6 % Lymph # 1.99 x10(3)/uL [place] % 10.6 % HI [place] # 0.61 K/uL Eos % 2.1 % [...] type: Telemetry unit, Admitting: MARIA ELENA DAVALOS MD-[facility] . Counseled: Patient, Family, Regarding diagnosis, Regarding diagnostic results, Regarding treatment plan, Patient indicated understanding of instructions. Notes: Patient presents with hypertensive urgency and chest pain. Initial EKG and troponin negative. Blood pressure decreased after IV hydralazine, labetalol, and transdermal Nitropaste. Discussed with Dr. Davalos, hospitalist, he accepts admission for further evaluation and care.. Electronically signed by Sivan, [facility] Conversion Visual Merchandising Specialist Cerner at 02/04/2023 2:16 PM CDT documented in this encounter Plan of Treatment Not on file documented as of this encounter Visit Diagnoses Not on filedocumented in this encounter Care Teams Powertrain Control Systems Engineer Relationship Specialty Start Date End Date Jay Howell MD [address] [place] [phone] PCP - General Emergency Medicine 11/12/23 documented as of this encounter
--- OUTSIDE RECORDS SUMMARY | 2025-10-13 13:29 | XMS_ITS | Encounter Summary ---
Author Organization [employer] ([place], [place], [place], [place], [place]) Address [address] [place] [address] Care Team Providers Care Facility Designer Name Role Phone Jay Howell MD Primary Care Provider [phone] Encounter Details Date Type Department Care Team (Late st Contact Info) Description 06/12/2020 Transcribed Document [facility] [place] [address] [place] [address] ProviderJessie MD [address] [place], [place] 7715[address] Social History Tobacco Use Types Packs/Day Years Used Date Smoking Tobacco: Never Assessed Comments Unknown Sex and Gender Information Value Date Recorded Sex Assigned at Not on file Legal Sex Female 7:30 PM CDT Gender Identity Not on file Sexual Orientation Not on file documented as of this encounter Miscellaneous Notes * [employer]ner Conversion Note - Jessie ProviderMD - 06/12/2020 9:23 PM CDT [place] Suicide Severity Rating Scale (C-SSRS) Entered On: 06/12/2020 22:56 EDT Performed On: 06/12/2020 22:00 EDT by NICOLE BYERS RN [place] Suicide Severity Rating Scale (C-SSRS) CSSRS Past [...] on filedocumented in this encounter Care Teams Facility Designer Relationship Specialty Start Date End Date Jay Howell MD [address] [place] [phone] PCP - General Emergency Medicine 11/12/23 documented as of this encounter
--- OUTSIDE RECORDS SUMMARY | 2025-10-13 13:29 | XMS_ITS | Encounter Summary ---
Author Organization [employer] ([place], [place], [place], [place], [place]) Address [address] [place] [address] Care Team Providers Care Library Science Instructor Name Role Phone Jay Howell MD Primary Care Provider [phone] Encounter Details Date Type Department Care Team (Late st Contact Info) Description 03/16/2021 Transcribed Document [facility] [place] [address] [place] [address] ProviderJessie MD [address] [place], [place] [address] Social History Tobacco Use Types Packs/Day Years [...] EDT - EVA WESLEY RN PCI w/ Comfort stent to D1 Coronary artery bypass graft (943318771) in 1992 at 52 Years. femur repair. Appendectomy (004808851). uterine suspension. Hysterectomy (291765812). back surgury. Cholecystectomy (31978164). Hip replacement (7946170413). cataract surgury.. Family history: Cardiomyopathy Child Stroke [...] EDT Height Source Stated Height Entry Format [place] Height/Length, GREENLAND[place] (ft) 5 ft Height/Length GREEN[place] 3 Inch CLINICALHEIGHT 160.02 cm [place] Body Weight 52.02 kg Weight Source, ED Critical estimated dosing weight Weight Entry Format [place] Weight Jordanian lb 158 lb CLINICALWEIGHT 71.82 kg Body [...] Triage: ED C-SSRS: ED Clinical Reconciliation: ED smasher hand: Lactic Acid Level with Reflex if Indicated: Lipase Level: Normal Saline Bolus: 500 mL, 500 mL/Hr, IV Piggyback, 1-Time PT/INR Prothrombin Time: PTT: Saline Lock Insert: Troponin I Ultra: Urinalysis UA Rflx Microscopic Cult if Ind: Zofran: 4 mg, IV Push, 1-Time. rehab director occupational therapist: Normal sinus rhythm. Electrocardiogram: Time 03/16/2021 11:38:00, rate 59, normal sinus rhythm, No ST changes, no ectopy, normal HI & QRS intervals, EP Interp. Results review: All Results 03/16/2021 14:09 EDT Urine Type. U CleanCatch Urine Color Yellow Urine Appearance Clear Urine Specific [place] 1.014 Urine pH Dipstick 5.5 LOW Urine [...] 15.6 % LOW Lymph # 1.52 x10(3)/uL [place] % 5.1 % [place] # 0.50 K/uL Eos % 0.0 % Eos # 0.00 x10(3)/uL Baso % 0.3 % Baso # 0.03 x10(3)/uL Slide Review No IG# 0.06 x10(3)/uL HI IG% 0.60 % . Radiology results: Radiology Results (Last 48 hours) [id number] -- 03/16/2021 11:24 CR Hip Uni Comp [...] Care: Telemetry unit, Admitting: MARIA ELENA DAVALOS MD-[facility], Launch Orders Consults: Consult to Physician (Order): Start: 03/16/2021 15:29 EDT, Consult to: SAMANTHA PINA MD-[facility], For right wrist fracture, Ergonomics Engineer Notified by Physician, Group/Instructions: [facility] clinic ortho. Notes: I certify that the MLP/PACKING LINE OPERATOR performed the services as delegated. . documented in this encounter Plan of Treatment Not on file documented as of this encounter Visit Diagnoses Not on filedocumented in this encounter Care Teams Library Science Instructor Relationship Specialty Start Date End Date Jay Howell MD [address] [place] [phone] PCP - General Emergency Medicine 11/12/23 documented as of this encounter
--- OUTSIDE RECORDS SUMMARY | 2025-10-13 13:29 | XMS_ITS | Encounter Summary ---
Author Organization [employer] ([place], [place], [place], [place], [place]) Address [address] [place] [address] Care Team Providers Care Fire Claims Adjuster Name Role Phone Jay Howell MD Primary Care Provider [phone] Encounter Details Date Type Department Care Team (Late st Contact Info) Description 12/21/2018 Transcribed Document [facility] [place] [address] [place] [address] ProviderJessie MD [address] [place] [address] Social History Tobacco Use Types Packs/Day [...] Jessie Yuen MD - 12/21/2018 11:47 AM PATIENT SERVICE REP [address] , [place] [address] Patient Copy Patient Information: Name: SKYLER MONTOYA Current Date: 12/21/2018 11:47:13 : 1940 Patient Address: [address] [place] [id number] Patient Attending Physician: FREDY YAÑEZ MD-CAR Primary Care Provider: TARA CHEN (REF), -MED Primary Care Provider Discharge Diagnosis: CAD (coronary artery disease); DM (diabetes mellitus); Exertional angina; HLD (hyperlipidemia); HTN (hypertension); Hx of CABG; DANTE (obstructive sleep apnea); Paroxysmal A-fib Weight on Admission: 158 lb, 0 oz Comment: Follow-up Instructions: With: Address: When: [facility] [address], [place] [address] Business (1) In 1 month 01/21/2019 With: Address: When: [facility] [address], [address] [place], [place] [address] Business (1) Within 2 to 5 weeks [...] white, jie, wheat, raisin, rye, oatmeal, and Botswanan. Tortillas that are neither fried nor made with lard or trans fat. Low-fat rolls, including hotdog and hamburger buns and Turkish muffins. Biscuits. Muffins. Waffles. Pancakes. Light popcorn. Whole-grain cereals. Flatbread. Ronceverte toast. Pretzels. Breadsticks. Rusks. Low-fat snacks. Low-fat [...] cottage cheese. Whole-milk cheeses, including blue (fredo), Dawes Armand, Brie, Nate, Trinidadian, Havarti, Cook Islander, cheddar, Camembert, and Oneida. Whole or 2% milk that is liquid, [...] that has suet, meat fat, or shortening. Union butter, hydrogenated oils, palm oil, coconut oil, [...] can cause a heart attack (myocardial infarction, AR). CAD is a leading cause of for [...] 12/25/2012 Document Revised: 03/10/2017 Document Reviewed: 02/04/2015 [employer] Interactive Patient Education ? 2017 [employer]. Groin Site Care Refer to this [...] Document Reviewed: 11/05/2011 ExitCare? Patient Information ?2013 One2start. Angiogram An angiogram, also called angiography, is [...] including vitamins, herbs, eye drops, creams, and awty-hmf-ylcmyqm medicines. ??? Any problems you or family [...] 03/06/2014 Elsevier Interactive Patient Education ? 2017 [employer] Inc. Medication Leaflets: valsartan (elin LILY foster) [...] valsartan; ?? if you are on a iit-bddt-hdor; ?? if you are dehydrated; or ?? [...] may report side effects to FDA at 5-831-ADR-9821. What other drugs will affect valsartan? Tell [...] may interact with valsartan, including prescription and stmo-llp-eleeodx medicines, vitamins, and herbal products. Not all [...] to ensure that the information provided by YOUnite. ('Multum') is accurate, up-to-date, and complete, but no guarantee is made to that effect. Drug information contained herein may be time sensitive. RocketOn information has been compiled for use by healthcare practitioners and consumers in the [place] and therefore NovImmuneum does not warrant that uses outside of the [place] are appropriate, unless specifically indicated otherwise. RocketOn's drug information does not endorse drugs, diagnose patients or recommend therapy. RocketOn's drug information is an informational resource designed [...] with your doctor, nurse or pharmacist. Copyright 5116-3317 [facility] Reklaim. Version: 16.05. Revision Date: 09/08/2016. hydralazine (bob [...] may report side effects to FDA at 7-672-RQA-2979. What other drugs will affect hydralazine? Tell your doctor about all your current medicines and any you start or stop using, especially: ? diazoxide (an injectable blood pressure medication); or ?? an MAO inhibitor--isocarboxazid, linezolid, methylene blue injection, phenelzine, rasagiline, selegiline, tranylcypromine, and others. This list is not complete. Other drugs may interact with hydralazine, including prescription and bvkc-pgu-tujuwqp medicines, vitamins, and herbal products. Not all [...] to ensure that the information provided by YOUnite. ('Multum') is accurate, up-to-date, and complete, but no guarantee is made to that effect. Drug information contained herein may be time sensitive. RocketOn information has been compiled for use by healthcare practitioners and consumers in the [place] and therefore RocketOn does not warrant that uses outside of the [place] are appropriate, unless specifically indicated otherwise. RocketOn's drug information does not endorse drugs, diagnose patients or recommend therapy. UNXs drug information is an informational resource designed [...] effective or appropriate for any given patient. RocketOn does not assume any responsibility for any aspect of healthcare administered with the aid of information RocketOn provides. The information contained herein is not intended to cover all possible uses, directions, precautions, warnings, drug interactions, allergic reactions, or adverse effects. If you have questions about the drugs you are taking, check with your doctor, nurse or pharmacist. Copyright 3737-1400 YOUnite. Version: 5.01. Revision Date: 10/26/2017. amlodipine (am [...] may report side effects to FDA at 9-186-ACF-8325. What other drugs will affect amlodipine? Tell your doctor about all your current medicines and any you start or stop using, especially: ? nitroglycerin; ?? simvastatin (Zocor, Simcor, Vytorin); or ?? any other heart or blood pressure medications. This list is not complete. Other drugs may interact with amlodipine, including prescription and jwdk-zty-wykjcsf medicines, vitamins, and herbal products. Not all [...] to ensure that the information provided by YOUnite. ('Multum') is accurate, up-to-date, and complete, but no guarantee is made to that effect. Drug information contained herein may be time sensitive. RocketOn information has been compiled for use by healthcare practitioners and consumers in the [place] and therefore RocketOn does not warrant that uses outside of the [place] are appropriate, unless specifically indicated otherwise. UNXs drug information does not endorse drugs, diagnose patients or recommend therapy. UNXs drug information is an informational resource designed [...] effective or appropriate for any given patient. RocketOn does not assume any responsibility for any aspect of healthcare administered with the aid of information RocketOn provides. The information contained herein is not intended to cover all possible uses, directions, precautions, warnings, drug interactions, allergic reactions, or adverse effects. If you have questions about the drugs you are taking, check with your doctor, nurse or pharmacist. Copyright 2429-3158 YOUnite. Version: 14.01. Revision Date: 01/24/2017. clopidogrel (kloe [...] may report side effects to FDA at 9-572-ZIF-4192. What other drugs will affect clopidogrel? Certain other medicines may increase your risk of bleeding, including aspirin. Avoid taking aspirin unless your doctor tells you to. Tell your doctor about all your other medicines, especially: ? any other medicines to treat or prevent blood clots; ?? a stomach acid hot shot such as omeprazole, Nexium, or Prilosec; ?? an antidepressant; ?? an opioid medication; ?? a blood thinner--warfarin, Coumadin, Jantoven; or ?? NSAIDs (nonsteroidal anti-inflammatory drugs)--ibuprofen (Advil, Motrin), naproxen (Aleve), celecoxib, diclofenac, indomethacin, meloxicam, and others. This list is not complete. Other drugs may affect clopidogrel, including prescription and yjdu-smo-sysfgid medicines, vitamins, and herbal products. Not all [...] to ensure that the information provided by YOUnite. ('Multum') is accurate, up-to-date, and complete, but no guarantee is made to that effect. Drug information contained herein may be time sensitive. RocketOn information has been compiled for use by healthcare practitioners and consumers in the [place] and therefore RocketOn does not warrant that uses outside of the [place] are appropriate, unless specifically indicated otherwise. UNXs drug information does not endorse drugs, diagnose patients or recommend therapy. UNXs drug information is an informational resource designed [...] effective or appropriate for any given patient. RocketOn does not assume any responsibility for any aspect of healthcare administered with the aid of information RocketOn provides. The information contained herein is not intended to cover all possible uses, directions, precautions, warnings, drug interactions, allergic reactions, or adverse effects. If you have questions about the drugs you are taking, check with your doctor, nurse or pharmacist. Copyright 6503-7062 YOUnite. Version: 15.. Revision Date: 08/07/2018. ranolazine (ra [...] may report side effects to FDA at 7-551-PLZ-4837. What other drugs will affect ranolazine? Many [...] interact with ranolazine. This includes prescription and mfkx-fxz-dcnbkqk medicines, vitamins, and herbal products. Give a [...] to ensure that the information provided by YOUnite. ('Multum') is accurate, up-to-date, and complete, but no guarantee is made to that effect. Drug information contained herein may be time sensitive. RocketOn information has been compiled for use by healthcare practitioners and consumers in the [place] and therefore RocketOn does not warrant that uses outside of the [place] are appropriate, unless specifically indicated otherwise. UNXs drug information does not endorse drugs, diagnose patients or recommend therapy. UNXs drug information is an informational resource designed [...] effective or appropriate for any given patient. RocketOn does not assume any responsibility for any aspect of healthcare administered with the aid of information RocketOn provides. The information contained herein is not intended to cover all possible uses, directions, precautions, warnings, drug interactions, allergic reactions, or adverse effects. If you have questions about the drugs you are taking, check with your doctor, nurse or pharmacist. Copyright 3596-2592 YOUnite. Version: .. Revision Date: 12/04/2015. CIGARETTE SMOKING: The facts are clear, cigarette smoking will shorten your life. Smoking can cause many illnesses along the way. As a healthcare provider, we recommend that you stop smoking. Assistance with quitting is available by contacting 0-810-LXQB-NOW. This is a free resource providing counseling, [...] Be sure to sign up for the [facility] patient portal, which gives you 09/05 access to your medical information ??? including these discharge instructions ??? using your computer, smartphone, or tablet. Just go to [employer] to get started. Questions? Call . [facility] would like to thank you for allowing us to assist you with your healthcare needs. MICHELE Skaggs JUDY D, (or retail service representative) have received the above patient education materials/instructions and have verbalized understanding: Patient Signature _ Date/Time Patient Art Gallery Internship Signature (if needed) Date/Time Clinician/Hospital Art Gallery Internship Signature (if needed) Date/Time Electronically signed by Sivan, [facility] Conversion Birdcage Assembler Cerner at 02/04/2023 2:20 PM CDT documented in this encounter Plan of Treatment Not on file documented as of this encounter Visit Diagnoses Not on filedocumented in this encounter Care Teams Fire Claims Adjuster Relationship Specialty Start Date End Date Jay Howell MD [address] [place] [phone] PCP - General Emergency Medicine 11/12/23 documented as of this encounter
--- OUTSIDE RECORDS SUMMARY | 2025-10-13 13:29 | XMS_ITS | Encounter Summary ---
Author Organization [facility] Address [address] [place] [address] Care Team Providers Care Meat Passer Name Role Phone Jay Howell MD Primary Care Provider [phone] Encounter Details Date Type Department Care Team [...] drink first t kathleen in the morning (EYE-PROP AND SCENERY MAKER) to steady your nerves or to get rid of a hangover? 0 03/20/2024 CAGE Questionnaire Score 0 024 Utilities Answer Date Recorded In the past 12 months has th e [employer], gas, oil, or water company threatened to [...] Info) Description 10/24/2025 1:30 PM EST Appointment [facility] [address] [place] [address] 10/24/2025 2:20 PM EST Office Visit [facility] [address] [place] [address] Zaida Nichols MD [address] [place] [address] documented as of this encounter Visit Diagnoses Not on filedocumented in this encounter Additional Health Concerns Assessment Noted Time A fall risk assessment has been complete d for the patient 10/31/2024 9:56 AM EST A Body Mass Index follow-up plan has been documented for the patient 10/31/2024 10:09 AM EST documented as of this encounter Care Teams Meat Passer Relationship Specialty Start Date End Date Jay Howell MD [address] [place], [place] [address] PCP - General 03/08/21 10/06/25 documented as of this encounter
--- OUTSIDE RECORDS SUMMARY | 2025-10-13 13:29 | XMS_ITS | Encounter Summary ---
Author Organization [employer] ([place], [place], [place], [place], [place]) Address [address] [place] [address] Care Team Providers Care Valve Repairer Reclamation Name Role Phone Jay Howell MD Primary Care Provider [phone] Encounter Details Date Type Department Care Team (Late st Contact Info) Description 06/13/2020 Transcribed Document [facility] [place] [address] [place] [address] ProviderJessie MD [address] [place] [id number] Social History Tobacco Use Types Packs/Day Years [...] EDT Electronically signed by Gayle Finnegan Conversion Career Placement Services Counselor Cerner at 02/04/2023 1:59 PM CDT documented in this encounter Plan of Treatment Not on file documented as of this encounter Visit Diagnoses Not on filedocumented in this encounter Care Teams Valve Repairer Reclamation Relationship Specialty Start Date End Date Jay Howell MD [address] [place] [phone] PCP - General Emergency Medicine 11/12/23 documented as of this encounter
--- OUTSIDE RECORDS SUMMARY | 2025-10-13 13:29 | XMS_ITS | Encounter Summary ---
Author Organization [employer] ([place], [place], [place], [place], [place]) Address [address] [place] [address] Care Team Providers Care Children'S Ministries Director Name Role Phone Jay Howell MD Primary Care Provider [phone] Encounter Details Date Type Department Care Team (Late st Contact Info) Description 06/13/2020 Transcribed Document [facility] [place] [address] [place] [address] ProviderJessie MD [address] [place] [address] Social History Tobacco Use Types Packs/Day Years [...] MD-CAR Basic Information PCP: Avtar Moeller MD Production Planner Scheduler: Stephania Garcia MD Chief Complaint Chest pain History of Present Illness 79 year old female with history of CAD s/p CABG (1992) and subsequent stents in 2007 [id number], Paroxysmal atrial fibrillation and prior PE on [...] mg tab 2 mg 1 Tab, [facility] mg tab 3 [...] History: Active Cataract Glaucoma Coronary artery disease (8626939717) Stented coronary artery (1118970753) High blood pressure (08306714) Hyperlipidemia (43153304) COPD (76826466) GERD - Gastro-esophageal reflux disease (5850305535) Multiple renal cysts (425022829) UTI - Urinary tract infection (2668290039) Arthritis (5618111) Diabetes mellitus (887945108) Emphysema (098279012) Apnea, sleep (949712160) Hx of pulmonary embolus (501214181) Chronic anticoagulation (286393620) Atrial fibrillation with RVR (3435134751) Family History: Cardiomyopathy Child Stroke Brother Heart attack Brother Sister Leukemia Child Cancer Father Mother Sister Coronary heart disease Child Procedure history: Cardiac Stent in 2010 at 70 Years. Coronary artery bypass graft (539281874) in 1992 at 52 Years. femur repair. Appendectomy (482769086). uterine suspension. Hysterectomy (385275403). back surgury. Cholecystectomy (23359368). Hip replacement (3931478394). cataract surgury. Physical Examination VS/Measurements Vitals Signs [...] of motion, Normal strength. Integumentary: Warm, Dry, [place]. Neurologic: Alert, Oriented. Psychiatric: Cooperative, Appropriate mood [...] 24 Hours) Radiology Results (Last 48 hours) [id number] -- 06/12/2020 23:54 CR Chest 1 Vw [...] <0.015 (JUN 13) <0.015 (JUN 12) . [facility] IMPRESSION: Angiographically, the patient [...] Dr. Garcia. Electronically signed by Sivan [facility] Conversion Nursing Education Consultant Cerner at 02/04/2023 1:58 PM CDT documented in this encounter Plan of Treatment Not on file documented as of this encounter Visit Diagnoses Not on filedocumented in this encounter Care Teams Children'S Ministries Director Relationship Specialty Start Date End Date Jay Howell MD [address] [place] [phone] PCP - General Emergency Medicine 11/12/23 documented as of this encounter
--- OUTSIDE RECORDS SUMMARY | 2025-10-13 13:29 | XMS_ITS | Encounter Summary ---
Author Organization [employer] ([place], [place], [place], [place], [place]) Address [address] [place] [address] Care Team Providers Care Pattern Hanger Name Role Phone Jay Howell MD Primary Care Provider [phone] Encounter Details Date Type Department Care Team (Late st Contact Info) Description 03/16/2021 Transcribed Document [facility] [place] [address] [place] [address] ProviderJessie MD [address] [place], [place] [address] Social History Tobacco Use Types Packs/Day Years [...] Communication Barrier : None Primary Language : Solomon Islander Any Spiritual/Cultural Needs or Requests : [...] WDL : WDL with exceptions (Comment: Dizziness INDEPENDENT LIVING ADVISOR, states that she passed out and the room was spinning [Viri Gonsales RN - 03/16/2021 12:57 EDT] ) Viri Gonsales RN - 03/16/2021 12:57 EDT Electronically signed by [facility] Conversion Project Manager Cerner at 02/04/2023 2:07 PM CDT documented in this encounter Plan of Treatment Not on file documented as of this encounter Visit Diagnoses Not on filedocumented in this encounter Care Teams Pattern Hanger Relationship Specialty Start Date End Date Jay Howell MD [address] [place] [phone] PCP - General Emergency Medicine 11/12/23 documented as of this encounter
--- OUTSIDE RECORDS SUMMARY | 2025-10-13 13:29 | XMS_ITS | Encounter Summary ---
Author Organization [employer] ([place], [place], [place], [place], [place]) Address [address] [place] [address] Care Team Providers Care Information Developer Name Role Phone Jay Howell MD Primary Care Provider [phone] Encounter Details Date Type Department Care Team (Late st Contact Info) Description 07/18/2021 Transcribed Document [facility] [place] [place] Medicine [address] [place] [address] ProviderJessie MD [address] [place], [place] [address] Social History Tobacco Use Types Packs/Day Years [...] Communication Barrier : None Primary Language : Guatemalan Any Spiritual/Cultural Needs or Requests : No [...] EDT Electronically signed by Gayle Finnegan Conversion Community Development Director Cerner at 02/04/2023 1:59 PM CDT documented in this encounter Plan of Treatment Not on file documented as of this encounter Visit Diagnoses Not on filedocumented in this encounter Care Teams Information Developer Relationship Specialty Start Date End Date Jay Howell MD [address] [place] [phone] PCP - General Emergency Medicine 11/12/23 documented as of this encounter
--- OUTSIDE RECORDS SUMMARY | 2025-10-13 13:29 | XMS_ITS | Encounter Summary ---
Author Organization [employer] ([place], [place], [place], [place], [place]) Address [address] [place] [address] Care Team Providers Care Cloth Shrinking Supervisor Name Role Phone Jay Howell MD Primary Care Provider [phone] Encounter Details Date Type Department Care Team (Late st Contact Info) Description 03/19/2021 Transcribed Document [facility] [place] [address] [place] [address] ProviderJessie MD [address] [place] [address] Social History Tobacco Use Types [...] Yuen MD - 03/19/2021 2:50 PM CDT [facility] [place] [id number] SKYLER MONTOYA :1940 Visit Time:03/17/2021 Your Visit Summary Your Care Team Admitting Physician - MARIA ELENA DAVALOS MD-[facility] Attending Physician - SARAH CONTEH MD [...] or Anabell ( Hand Surgery) on d/c. [phone] Activity: Discharge Activity: Activity as tolerated Diet: Discharge Diet: Heart healthy diet Driving Restriction: Do Not Drive due to fainting episode until your doctor says you can Follow-Up Appointments Follow Up with ANDERSON CARRASCO MD When Within 3 to 5 days Comments for ortho eval for fracture wrist Where: [address] [place] [address]- Follow Up with [facility] When Within 2 to 4 weeks Where: [address] [place] [address] [place] [address]- Business (1) Follow Up with JEFFERSON MENDOZA When Within 6 weeks Comments Patient should call for a follow up appointment with [facility] Neurology. Where: [address] [place] [address] [place] [address]- Business (1) Medications What How Much When [...] activities are safe for you. ??? Take waus-eol-paqiiqt and prescription medicines only as told by [...] provider. Document Revised: 07/31/2018 Document Reviewed: 03/26/2017 Pinterest Patient Education ?? 2020 Pinterest Inc. Near-Syncope Near-syncope is when you suddenly [...] these instructions at home: Medicines ??? Take swxx-seo-kdtbpyi and prescription medicines only as told by [...] Reviewed: 08/22/2019 Elsevier Patient Education ?? 2020 Teamer.net. Emergency Awareness and Preventative Care STROKE is [...] Assistance with quitting is available by contacting 2-869-REUF-NOW. This is a free resource providing counseling, [...] range between ( 0.0 and 7.0 ) [place] #: 0.59 K/uL -- Normal range between ( 0.16 and 1.00 ) Eos #: 0.00 x10(3)/uL -- Normal range between ( 0.00 and 0.80 ) [place] %: 8.9 % -- Normal range between [...] /LPF Urine Bilirubin Dipstick: Negative Urine Specific [place]: 1.015 -- Normal range between ( 1.005 [...] was given the opportunity to ask questions. Patient/Senior Sous Chef Name: Patient/Senior Sous Chef Signature: Relationship to Patient: Clinician/Hospital Senior Sous Chef Signature: Date: Electronically signed by Sivan, [facility] Conversion Hydraulic Assembler Cerner at 02/04/2023 2:18 PM CDT documented in this encounter Plan of Treatment Not on file documented as of this encounter Visit Diagnoses Not on filedocumented in this encounter Care Teams Cloth Shrinking Supervisor Relationship Specialty Start Date End Date Jay Howell MD [address] [place] [phone] PCP - General Emergency Medicine 11/12/23 documented as of this encounter
--- OUTSIDE RECORDS SUMMARY | 2025-10-13 13:29 | XMS_ITS | Encounter Summary ---
Author Organization [employer] ([place], [place], [place], [place], [place]) Address [address] [place] [address] Care Team Providers Care Operator Weapon Locating Radar Name Role Phone Jay Howell MD Primary Care Provider [phone] Encounter Details Date Type Department Care Team (Late st Contact Info) Description 07/18/[address] [facility] [place] Family Medicine [address] [place] [address] ProviderJessie MD [address] [place], [place] [address] Social History Tobacco Use Types Packs/Day Years [...] on filedocumented in this encounter Care Teams Operator Weapon Locating Radar Relationship Specialty Start Date End Date Jay Howell MD [address] [place] [phone] PCP - General Emergency Medicine 11/12/23 documented as of this encounter
--- OUTSIDE RECORDS SUMMARY | 2025-10-13 13:29 | XMS_ITS | Encounter Summary ---
Author Organization [employer] ([place], [place], [place], [place], [place]) Address [address] [place] [address] Care Team Providers Care Racking Technician Name Role Phone Jay Howell MD Primary Care Provider [phone] Encounter Details Date Type Department Care Team (Late st Contact Info) Description 06/12/2020 Transcribed Document [facility] [place] Family Medicine [address] [place] [address] ProviderJessie MD [address] [place] [phone] Social History Tobacco Use Types Packs/Day Years [...] on filedocumented in this encounter Care Teams Racking Technician Relationship Specialty Start Date End Date Jay Howell MD [address] [place] [phone] PCP - General Emergency Medicine 11/12/23 documented as of this encounter
--- OUTSIDE RECORDS SUMMARY | 2025-10-13 13:29 | XMS_ITS | Encounter Summary ---
Author Organization [employer] ([place], [place], [place], [place], [place]) Address [address] [place] [address] Care Team Providers Care Doughnut Glazier Name Role Phone Jay Howell MD Primary Care Provider [phone] Encounter Details Date Type Department Care Team (Late st Contact Info) Description 03/19/2021 Transcribed Document [facility] [place] Family Medicine [address] [place] [address] ProviderJessie MD [address] [place], [place] 1446[address] Social History Tobacco Use Types Packs/Day Years Used Date Smoking Tobacco: Never Assessed Comments Unknown Sex and Gender Information Value Date Recorded Sex Assigned at Not on file Legal Sex Female 7:30 PM CDT Gender Identity Not on file Sexual Orientation Not on file documented as of this encounter Miscellaneous Notes * Cerner Conversion Note - Jessie ProviderMD - 03/19/2021 2:00 AM CDT Salesperson Burial Plots Details Entered On: 03/19/2021 2:31 EDT Performed [...] 03/19/2021 2:31 EDT Electronically signed by Sivan [facility] Conversion Ambulatory Analyst Cerner at 02/04/2023 2:11 PM CDT documented in this encounter Plan of Treatment Not on file documented as of this encounter Visit Diagnoses Not on filedocumented in this encounter Care Teams Doughnut Glazier Relationship Specialty Start Date End Date Jay Howell MD [address] [place] [phone] PCP - General Emergency Medicine 11/12/23 documented as of this encounter
--- OUTSIDE RECORDS SUMMARY | 2025-10-13 13:29 | XMS_ITS | Encounter Summary ---
Author Organization [email or web address] ([place], [place], [place], [place], [place]) Address [address] [place] [address] Care Team Providers Care Senior Shipping Clerk Name Role Phone Jay Howell MD Primary Care Provider [phone] Encounter Details Date Type Department Care Team (Late st Contact Info) Description 12/21/2018 Transcribed Document [facility] [place] [address] [place] [address] ProviderJessie MD [address] [place] [address] Social History Tobacco Use Types Packs/Day Years Used Date Smoking Tobacco: Never Assessed Comments Unknown Sex and Gender Information Value Date Recorded Sex Assigned at Not on file Legal Sex Female 7:30 PM CDT Gender Identity Not on file Sexual Orientation Not on file documented as of this encounter Miscellaneous Notes * Cerner Conversion Note - Jessie ProviderMD - 12/21/2018 11:46 AM ONCOLOGY PHYSICIAN ASSISTANT Nursing Discharge Summary Entered On: 12/21/2018 11:46 [...] - 12/21/2018 11:46 EST Electronically signed by [facility] Conversion Surgery Teacher Cerner at 02/04/2023 2:08 PM CDT documented in this encounter Plan of Treatment Not on file documented as of this encounter Visit Diagnoses Not on filedocumented in this encounter Care Teams Senior Shipping Clerk Relationship Specialty Start Date End Date Jay Howell MD [address] [place] [phone] PCP - General Emergency Medicine 11/12/23 documented as of this encounter
--- OUTSIDE RECORDS SUMMARY | 2025-10-13 13:29 | XMS_ITS | Encounter Summary ---
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 femur repair. Appendectomy (442610017). uterine suspension. Hysterectomy (994981530). back surgury. Cholecystectomy (98584969). Hip replacement (6503286319). cataract surgury.. Family history: Cardiomyopathy Child Stroke [...] EDT Height Source Stated Height Entry Format [place] Height/Length, [facility] (ft) 5 ft Height/Length [facility] 3 Inch CLINICALHEIGHT 160.02 cm [place] Body Weight 52.02 kg Weight Source, ED Critical estimated dosing weight Weight Entry Format [place] Weight [place] lb 154 lb CLINICALWEIGHT 70 kg Body [...] C-SSRS: ED Clinical Reconciliation: ED Isolation: ED steel turner: Lipase Level: PT/INR Prothrombin Time: PTT: ProBNP: Saline Lock Insert: Troponin I Ultra: Troponin I Ultra: aspirin: 324 mg, Chew, 1-Time iopamidol: 75 mL, IV Push, ADHOC. Electrocardiogram: Time 07/18/2021 15:21:00, rate 57, normal sinus rhythm, No ST changes, no ectopy, normal [place] & QRS intervals, EP Interp. Electrocardiogram: Time 07/18/2021 19:13:00, rate 53, normal sinus rhythm, No ST changes, no ectopy, normal [place] & QRS intervals, EP Interp. cardiac monitor: Normal sinus rhythm. Results review: All [...] % 30.3 % Lymph # 1.46 x10(3)/uL [place] % 10.4 % HI [place] # 0.50 K/uL Eos % 0.0 % Eos # 0.00 x10(3)/uL Baso % 0.4 % Baso # 0.02 x10(3)/uL Slide Review No IG# 0.03 x10(3)/uL IG% 0.60 % PT 39.6 Second(s) HI INR 4.1 HI PTT 44.9 Second(s) HI . Radiology results: Radiology Results (Last 48 hours) [id number] -- 07/18/2021 15:00 CR Chest 1 Vw [...] of instructions. Notes: I certify that the MLP/CEMENT PRODUCTION PLANT OPERATOR performed the services as delegated. . documented in this encounter Plan of Treatment Not on file documented as of this encounter Visit Diagnoses Not on filedocumented in this encounter Care Teams Senior Infrastructure Architect Relationship Specialty Start Date End Date Sokan, Jay O, MD [address] [place] [phone] PCP - General Emergency Medicine 11/12/23 documented as of this encounter
--- OUTSIDE RECORDS SUMMARY | 2025-10-13 13:29 | XMS_ITS | Encounter Summary ---
Author Organization [employer] ([place], [place], [place], [place], [place]) Address [address] [place] [address] Care Team Providers Care Human Relations Teacher Name Role Phone Jay Howell MD Primary Care Provider [phone] Encounter Details Date Type Department Care Team (Late st Contact Info) Description 03/16/2021 Transcribed Document [facility] [place] [address] [place] [address] ProviderJessie MD [address] [place], [place] [address] Social History Tobacco Use Types Packs/Day Years [...] on filedocumented in this encounter Care Teams Human Relations Teacher Relationship Specialty Start Date End Date Jay Howell MD [address] [place] [phone] PCP - General Emergency Medicine 11/12/23 documented as of this encounter
--- OUTSIDE RECORDS SUMMARY | 2025-10-13 13:29 | XMS_ITS | Encounter Summary ---
Author Organization [employer] ([place], [place], [place], [place], [place]) Address [address] [place] [address] Care Team Providers Care Music Copyist Name Role Phone Jay Howell MD Primary Care Provider [phone] Encounter Details Date Type Department Care Team (Late st Contact Info) Description 07/18/2021 Transcribed Document [facility] [place] Family Medicine [address] [place] [address] ProviderJessie MD [address] [place], [place] [address] Social History Tobacco Use Types Packs/Day Years [...] : 3 - Urgent Tracking Group : [facility] ED CHETAN BRASWELL RN-Resource - 07/18/2021 [...] 15:12:21 EDT) Problems(Active) Apnea, sleep (SNOMED CT :864946531 ) Name of Problem: Apnea, sleep ; Recorder: UJAN LUIS GIL RN; Confirmation: Confirmed ; Classification: Medical ; Code: [id number] ; Contributor System: PowerChart ; Last Updated: 11/12/2014 10:12 EST ; Life Cycle Date: 11/12/2014 ; Life Cycle Status: Active ; Vocabulary: SNOMED CT Arthritis (SNOMED CT :5802220 ) Name of Problem: Arthritis ; Recorder: KENYON CHAMBERS RN; Confirmation: Confirmed ; Classification: Medical ; Code: 7738308 ; Contributor System: PowerChart ; Last Updated: 04/10/2016 8:04 EDT ; Life Cycle Date: 08/13/2013 ; Life Cycle Status: Active ; Vocabulary: SNOMED CT Atrial fibrillation with RVR (SNOMED CT :6240671662 ) Name of Problem: Atrial fibrillation with RVR ; Recorder: SANG RICO APRN; Confirmation: Confirmed ; Classification: Medical ; Code: [id number] ; Contributor System: PowerChart ; Last Updated: 04/10/2016 8:05 EDT ; Life Cycle Date: 04/10/2016 ; Life Cycle Status: Active ; Responsible Provider: SANG RICO APRN; Vocabulary: SNOMED CT Blood clot (SNOMED CT :554445168 ) Name of Problem: Blood clot ; Recorder: KENYON CHAMBERS RN; Confirmation: Confirmed ; Classification: Patient Stated ; Code: 984983761 ; Contributor System: PowerChart ; Last Updated: [...] Vocabulary: Patient Care Chest pain (SNOMED CT :22491315 ) Name of Problem: Chest pain ; Recorder: SANG RICO APRN; Confirmation: Complaint of ; Classification: Medical ; Code: 60318286 ; Contributor System: PowerChart ; Last Updated: 04/10/2016 8:05 EDT ; Life Cycle Status: Active ; Responsible Provider: SANG RICO APRN; Vocabulary: SNOMED CT Chronic anticoagulation (SNOMED CT :557265578 ) Name of Problem: Chronic anticoagulation ; Recorder: SANG RICO APRN; Confirmation: Confirmed ; Classification: Medical ; Code: 071440281 ; Contributor System: [employer]CarChart ; Last Updated: 04/10/2016 8:05 EDT ; Life Cycle Date: 04/10/2016 ; Life Cycle Status: Active ; Responsible Provider: SANG RICO APRN; Vocabulary: SNOMED CT Clotting disorder (SNOMED CT :132034183 ) Name of Problem: Clotting disorder ; Recorder: KENYON CHAMBERS RN; Confirmation: Confirmed ; Classification: Patient Stated ; Code: 477220138 ; Contributor System: PowerChart ; Last Updated: 03/28/2014 19:29 EDT ; Life Cycle Date: 08/13/2013 ; Life Cycle Status: Active ; Vocabulary: SNOMED CT COPD (SNOMED CT :04088661 ) Name of Problem: COPD ; Recorder: KENYON CHAMBERS RN; Confirmation: Confirmed ; Classification: Medical ; Code: 98481466 ; Contributor System: WhipCarChart ; Last Updated: 04/10/2016 8:03 EDT ; Life Cycle Date: 08/13/2013 ; Life Cycle Status: Active ; Vocabulary: SNOMED CT Coronary artery disease (SNOMED CT :4105473041 ) Name of Problem: Coronary artery disease ; Recorder: KENYON CHAMBERS RN; Confirmation: Confirmed ; Classification: Medical ; Code: 5148183433 ; Contributor System: WhipCarChart ; Last Updated: 04/10/2016 8:03 EDT ; Life Cycle Date: 08/13/2013 ; Life Cycle Status: Active ; Vocabulary: SNOMED CT Diabetes mellitus (SNOMED CT :849442957 ) Name of Problem: Diabetes mellitus ; Recorder: KENYON CHAMBERS RN; Confirmation: Confirmed ; Classification: Medical ; Code: 682706125 ; Contributor System: WhipCarChart ; Last Updated: 04/10/2016 8:04 EDT ; Life Cycle Date: 08/13/2013 ; Life Cycle Status: Active ; Vocabulary: SNOMED CT Emphysema (SNOMED CT :123327645 ) Name of Problem: Emphysema ; Recorder: JUAN LUIS GIL RN; Confirmation: Confirmed ; Classification: Medical ; Code: 054860877 ; Contributor System: PowerChart ; Last Updated: 11/12/2014 10:11 EST ; Life Cycle Date: 11/12/2014 ; Life Cycle Status: Active ; Vocabulary: SNOMED CT GERD - Gastro-esophageal reflux disease (SNOMED CT :4393155559 ) Name of Problem: GERD - Gastro-esophageal reflux disease ; Recorder: KENYON CHAMBERS RN; Confirmation: Confirmed ; Classification: Medical ; Code: 3423664473 ; Contributor System: PowerChart ; Last Updated: [...] Patient Care High blood pressure (SNOMED CT :85915438 ) Name of Problem: High blood pressure ; Recorder: KENYON CHAMBERS RN; Confirmation: Confirmed ; Classification: Medical ; Code: 29562745 ; Contributor System: PowerChart ; Last Updated: 04/10/2016 8:03 EDT ; Life Cycle Date: 08/13/2013 ; Life Cycle Status: Active ; Vocabulary: SNOMED CT History of obstructive sleep apnea (IMO :68791307 ) Name of Problem: History of obstructive sleep apnea ; Recorder: SYSTEM, SYSTEM; Confirmation: Confirmed ; Classification: Medical ; Code: 73953142 ; Last Updated: 08/25/2020 18:21 EST ; Life Cycle Date: 08/25/2020 ; Life Cycle Status: Active ; Vocabulary: IMO Hx of pulmonary embolus (SNOMED CT :822373064 ) Name of Problem: Hx of pulmonary embolus ; Recorder: SANG RICO APRN; Confirmation: Confirmed ; Classification: Medical ; Code: 268857774 ; Contributor System: PowerChart ; Last Updated: 04/10/2016 8:05 EDT ; Life Cycle Date: 04/10/2016 ; Life Cycle Status: Active ; Responsible Provider: SANG RICO APRN; Vocabulary: SNOMED CT Hyperlipidemia (SNOMED CT :64342091 ) Name of Problem: Hyperlipidemia ; Recorder: KENYON CHAMBERS RN; Confirmation: Confirmed ; Classification: Medical ; Code: 88183856 ; Contributor System: PowerChart ; Last Updated: 04/10/2016 8:03 EDT ; Life Cycle Date: 08/13/2013 ; Life Cycle Status: Active ; Vocabulary: SNOMED CT Multiple renal cysts (SNOMED CT :539342666 ) Name of Problem: Multiple renal cysts ; Recorder: KENYON CHAMBERS RN; Confirmation: Confirmed ; Classification: Medical ; Code: 979155883 ; Contributor System: PowerChart ; Last Updated: 04/10/2016 8:04 EDT ; Life Cycle Date: 08/13/2013 ; Life Cycle Status: Active ; Vocabulary: SNOMED CT Stented coronary artery (SNOMED CT :8242854621 ) Name of Problem: Stented coronary artery ; Recorder: KENYON CHAMBERS RN; Confirmation: Confirmed ; Classification: Medical ; Code: 5204533475 ; Contributor System: PowerChart ; Last Updated: 04/10/2016 8:03 EDT ; Life Cycle Date: 08/13/2013 ; Life Cycle Status: Active ; Vocabulary: SNOMED CT Diagnoses(Active) Chest pain Date: 07/18/2021 ; Diagnosis Type: Reason For Visit ; Confirmation: Complaint of ; Clinical Dx: Chest pain ; Classification: Medical ; Clinical Service: Emergency medicine ; Code: PNED ; Probability: 0 ; Diagnosis Code: [id number] ED Height and Weight Height Source : Stated Height Entry Format : [place] Height, Feet : 5 ft(Converted to: 152 cm, 60 Inch) Height, Inches : 3 Inch(Converted to: 0 ft 3 Inch, 7.62 cm) Clinical Height : 160.02 cm Weight Source, ED : Critical estimated dosing weight Weight Entry Format : [place] Weight, Pounds : 154 lb Clinical Dosing Weight : 70 kg Body Surface Area (BSA) : 1.73 m2 Body Mass Index : 27.3 kg/m2 (HI) [place] Body Weight (IBW) : 52.02 kg CHETAN [...] of the form. Electronically signed by Sivan, [facility] Conversion Continuous Improvement Director Cerner at 02/04/2023 2:06 PM CDT documented in this encounter Plan of Treatment Not on file documented as of this encounter Visit Diagnoses Not on filedocumented in this encounter Care Teams Music Copyist Relationship Specialty Start Date End Date Jay Howell MD [address] [place] [phone] PCP - General Emergency Medicine 11/12/23 documented as of this encounter
--- OUTSIDE RECORDS SUMMARY | 2025-10-13 13:29 | XMS_ITS | Encounter Summary ---
Author Organization [employer] ([place], [place], [place], [place], [place]) Address [address] [place] [address] Care Team Providers Care Family Practitioner Name Role Phone Jay Howell MD Primary Care Provider [phone] Encounter Details Date Type Department Care Team (Late st Contact Info) Description 03/19/2021 Transcribed Document [facility] [place] [address] [place] [address] ProviderJessie MD [address] [place], [place] [address] Social History Tobacco Use Types Packs/Day Years [...] of the form. Electronically signed by Sivan, [facility] Conversion Pesticide Chemist Cerner at 02/04/2023 2:13 PM CDT documented in this encounter Plan of Treatment Not on file documented as of this encounter Visit Diagnoses Not on filedocumented in this encounter Care Teams Family Practitioner Relationship Specialty Start Date End Date Jay Howell MD [address] [place] [phone] PCP - General Emergency Medicine 11/12/23 documented as of this encounter
--- OUTSIDE RECORDS SUMMARY | 2025-10-13 13:29 | XMS_ITS | Encounter Summary ---
Author Organization [employer] ([place], [place], [place], [place], [place]) Address [address] [place] [address] Care Team Providers Care Event Decorator Name Role Phone Jay Howell MD Primary Care Provider [phone] Encounter Details Date Type Department Care Team (Late st Contact Info) Description 03/19/2021 Transcribed Document [facility] [place] Family Medicine [address] [place] [address] ProviderJessie MD [address] [place], [place] [address] Social History Tobacco Use Types Packs/Day Years [...] filedocumented in this encounter Care Teams Event Decorator Relationship Specialty Start Date End Date Jay Howell MD [address] [place] [phone] PCP - General Emergency Medicine 11/12/23 documented as of this encounter
--- OUTSIDE RECORDS SUMMARY | 2025-10-13 13:29 | XMS_ITS | Encounter Summary ---
Author Organization [employer] ([place], [place], [place], [place], [place]) Address [address] [place] [address] Care Team Providers Care Weatherization Administrator Name Role Phone Jay Howell MD Primary Care Provider [phone] Encounter Details Date Type Department Care Team (Late st Contact Info) Description 03/19/2021 Transcribed Document [facility] Family Medicine [address] [place] [address] ProviderJessie MD [address] [place], [place] [address] Social History Tobacco Use Types Packs/Day Years [...] 03/19/2021 14:23 EDT Electronically signed by Sivan [facility] Conversion Rv Repairer Cerner at 02/04/2023 2:10 PM CDT documented in this encounter Plan of Treatment Not on file documented as of this encounter Visit Diagnoses Not on filedocumented in this encounter Care Teams Weatherization Administrator Relationship Specialty Start Date End Date Jay Howell MD [address] [place] [phone] PCP - General Emergency Medicine 11/12/23 documented as of this encounter
--- OUTSIDE RECORDS SUMMARY | 2025-10-13 13:29 | XMS_ITS | Encounter Summary ---
Author Organization [employer] ([place], [place], [place], [place], [place]) Address [address] [place] [address] Care Team Providers Care Flask Carrier Name Role Phone Jay Howell MD Primary Care Provider [phone] Encounter Details Date Type Department Care Team (Late st Contact Info) Description 07/18/2021 Transcribed Document [facility] [place] [address] [place] [address] ProviderJessie MD [address] [place] [address] Social History Tobacco Use Types [...] Yuen MD - 07/18/2021 8:22 PM CDT [facility] [place], [place] [id number] SKYLER MONTOYA :1940 Visit Time:07/18/2021 Your Visit [...] or different. Where: [address] [id number] (1) Allergies Macrodantin morphine (rash, rash) [...] range between ( 0.0 and 7.0 ) [place] #: 0.50 K/uL -- Normal range between ( 0.16 and 1.00 ) Eos #: 0.00 x10(3)/uL -- Normal range between ( 0.00 and 0.80 ) [place] %: 10.4 % -- Normal range between [...] these instructions at home: Medicines ??? Take [id number] and prescription medicines only as told by [...] provider. Document Revised: 04/05/2019 Document Reviewed: 04/05/2019 [employer] Patient Education ?? 2020 [employer]. Emergency Awareness and Preventative Care STROKE is [...] Assistance with quitting is available by contacting 7-642-CGKX-NOW. This is a free resource providing counseling, [...] was given the opportunity to ask questions. Patient/Security Engineer Name: Patient/Security Engineer Signature: Relationship to Patient: Clinician/Hospital Security Engineer Signature: Please Provide a Telephone Number Where You Can Be Reached: Is it Permissible To Leave a Message? Date: documented in this encounter Plan of Treatment Not on file documented as of this encounter Visit Diagnoses Not on filedocumented in this encounter Care Teams Flask Carrier Relationship Specialty Start Date End Date Jay Howell MD [address] [place] [phone] PCP - General Emergency Medicine 11/12/23 documented as of this encounter
--- OUTSIDE RECORDS SUMMARY | 2025-10-13 13:29 | XMS_ITS | Encounter Summary ---
Author Organization [employer] ([place], [place], [place], [place], [place]) Address [address] [place] [address] Care Team Providers Care Bottom Hoop Driver Name Role Phone Jay Howell MD Primary Care Provider [phone] Encounter Details Date Type Department Care Team (Late st Contact Info) Description 07/18/2021 Transcribed Document [facility] [place] [facility] [place] [address] [place] [address] ProviderJessie MD [address] [place], [place] [address] Social History Tobacco Use Types Packs/Day Years [...] on filedocumented in this encounter Care Teams Bottom Hoop Driver Relationship Specialty Start Date End Date Jay Howell MD [address] [place] [phone] PCP - General Emergency Medicine 11/12/23 documented as of this encounter
--- OUTSIDE RECORDS SUMMARY | 2025-10-13 13:29 | XMS_ITS | Encounter Summary ---
Author Organization [employer] ([place], [place], [place], [place], [place]) Address [address] [place] [address] Care Team Providers Care Assistant Passenger Locomotive Engineer Name Role Phone Jay Howell MD Primary Care Provider [phone] Encounter Details Date Type Department Care Team (Late st Contact Info) Description 06/13/2020 Transcribed Document [facility] [place] Family [place] [address] [place] [address] ProviderJessie MD [address] [place], [place] [id number] Social History Tobacco Use Types Packs/Day Years [...] filedocumented in this encounter Care Teams Assistant Passenger Locomotive Engineer Relationship Specialty Start Date End Date Jay Howell MD [address] [place] [phone] PCP - General Emergency Medicine 11/12/23 documented as of this encounter
--- OUTSIDE RECORDS SUMMARY | 2025-10-13 13:29 | XMS_ITS | Encounter Summary ---
Author Organization [employer] ([place], [place], [place], [place], [place]) Address [address] [place] [address] Care Team Providers Care Communication Equipment Mechanic Name Role Phone Jay Howell MD Primary Care Provider [phone] Encounter Details Date Type Department Care Team (Late st Contact Info) Description 03/16/2021 Transcribed Document [facility] [place] Family Medicine [address] [place] [address] ProviderJessie MD [address] [place], [place] [address] Social History Tobacco Use Types Packs/Day Years [...] : 2 - Emergent Tracking Group : [facility] ED NICOLE CHEN RN [...] 11:35:39 EDT) Problems(Active) Apnea, sleep (SNOMED CT :039227770 ) Name of Problem: Apnea, sleep ; Recorder: JUAN LUIS GIL RN; Confirmation: Confirmed ; Classification: Medical ; Code: [id number] ; Contributor System: PowerChart ; Last Updated: 11/12/2014 10:12 EST ; Life Cycle Date: 11/12/2014 ; Life Cycle Status: Active ; Vocabulary: SNOMED CT Arthritis (SNOMED CT :3770110 ) Name of Problem: Arthritis ; Recorder: KENYON CHAMBERS RN; Confirmation: Confirmed ; Classification: Medical ; Code: 2334700 ; Contributor System: PowerChart ; Last Updated: 04/10/2016 8:04 EDT ; Life Cycle Date: 08/13/2013 ; Life Cycle Status: Active ; Vocabulary: SNOMED CT Atrial fibrillation with RVR (SNOMED CT :4360758685 ) Name of Problem: Atrial fibrillation with RVR ; Recorder: SANG RICO APRN; Confirmation: Confirmed ; Classification: Medical ; Code: [id number] ; Contributor System: PowerChart ; Last Updated: 04/10/2016 8:05 EDT ; Life Cycle Date: 04/10/2016 ; Life Cycle Status: Active ; Responsible Provider: SANG RICO APRN; Vocabulary: SNOMED CT Blood clot (SNOMED CT :363373582 ) Name of Problem: Blood clot ; Recorder: KENYON CHAMBERS RN; Confirmation: Confirmed ; Classification: Patient Stated ; Code: [id number] ; Contributor System: PowerChart ; Last Updated: [...] Vocabulary: Patient Care Chest pain (SNOMED CT :52825718 ) Name of Problem: Chest pain ; Recorder: SANG RICO APRN; Confirmation: Complaint of ; Classification: Medical ; Code: 26045117 ; Contributor System: PowerChart ; Last Updated: 04/10/2016 8:05 EDT ; Life Cycle Status: Active ; Responsible Provider: SANG RICO APRN; Vocabulary: SNOMED CT Chronic anticoagulation (SNOMED CT :222654227 ) Name of Problem: Chronic anticoagulation ; Recorder: SANG RICO APRN; Confirmation: Confirmed ; Classification: Medical ; Code: 907368193 ; Contributor System: [employer] ; Last Updated: 04/10/2016 8:05 EDT ; Life Cycle Date: 04/10/2016 ; Life Cycle Status: Active ; Responsible Provider: SANG RICO APRN; Vocabulary: SNOMED CT Clotting disorder (SNOMED CT :480342899 ) Name of Problem: Clotting disorder ; Recorder: KENYON CHAMBERS RN; Confirmation: Confirmed ; Classification: Patient Stated ; Code: 465299828 ; Contributor System: PowerChart ; Last Updated: 03/28/2014 19:29 EDT ; Life Cycle Date: 08/13/2013 ; Life Cycle Status: Active ; Vocabulary: SNOMED CT COPD (SNOMED CT :85849737 ) Name of Problem: COPD ; Recorder: KENYON CHAMBERS RN; Confirmation: Confirmed ; Classification: Medical ; Code: 39782973 ; Contributor System: PressBaby[employer] ; Last Updated: 04/10/2016 8:03 EDT ; Life Cycle Date: 08/13/2013 ; Life Cycle Status: Active ; Vocabulary: SNOMED CT Coronary artery disease (SNOMED CT :0764137068 ) Name of Problem: Coronary artery disease ; Recorder: KENYON CHAMBERS RN; Confirmation: Confirmed ; Classification: Medical ; Code: 5161569597 ; Contributor System: [employer] ; Last Updated: 04/10/2016 8:03 EDT ; Life Cycle Date: 08/13/2013 ; Life Cycle Status: Active ; Vocabulary: SNOMED CT Diabetes mellitus (SNOMED CT :657001200 ) Name of Problem: Diabetes mellitus ; Recorder: KENYON CHAMBERS RN; Confirmation: Confirmed ; Classification: Medical ; Code: 870940203 ; Contributor System: [employer]Baby[employer] ; Last Updated: 04/10/2016 8:04 EDT ; Life Cycle Date: 08/13/2013 ; Life Cycle Status: Active ; Vocabulary: SNOMED CT Emphysema (SNOMED CT :280946997 ) Name of Problem: Emphysema ; Recorder: JUAN LUIS GIL RN; Confirmation: Confirmed ; Classification: Medical ; Code: 810015737 ; Contributor System: PowerChart ; Last Updated: 11/12/2014 10:11 EST ; Life Cycle Date: 11/12/2014 ; Life Cycle Status: Active ; Vocabulary: SNOMED CT GERD - Gastro-esophageal reflux disease (SNOMED CT :3351251714 ) Name of Problem: GERD - Gastro-esophageal reflux disease ; Recorder: KENYON CHAMBERS RN; Confirmation: Confirmed ; Classification: Medical ; Code: [id number] ; Contributor System: PowerChart ; Last Updated: [...] Patient Care High blood pressure (SNOMED CT :67992112 ) Name of Problem: High blood pressure ; Recorder: KENYON CHAMBERS RN; Confirmation: Confirmed ; Classification: Medical ; Code: 00388871 ; Contributor System: PowerChart ; Last Updated: 04/10/2016 8:03 EDT ; Life Cycle Date: 08/13/2013 ; Life Cycle Status: Active ; Vocabulary: SNOMED CT History of obstructive sleep apnea (IMO :10924600 ) Name of Problem: History of obstructive sleep apnea ; Recorder: SYSTEM, SYSTEM; Confirmation: Confirmed ; Classification: Medical ; Code: 37338690 ; Last Updated: 08/25/2020 18:21 EST ; Life Cycle Date: 08/25/2020 ; Life Cycle Status: Active ; Vocabulary: IMO Hx of pulmonary embolus (SNOMED CT :201376997 ) Name of Problem: Hx of pulmonary embolus ; Recorder: SANG RICO APRN; Confirmation: Confirmed ; Classification: Medical ; Code: 299244480 ; Contributor System: PowerChart ; Last Updated: 04/10/2016 8:05 EDT ; Life Cycle Date: 04/10/2016 ; Life Cycle Status: Active ; Responsible Provider: SANG RICO APRN; Vocabulary: SNOMED CT Hyperlipidemia (SNOMED CT :47756027 ) Name of Problem: Hyperlipidemia ; Recorder: KENYON CHAMBERS RN; Confirmation: Confirmed ; Classification: Medical ; Code: 80827828 ; Contributor System: [employer]Baby[employer] ; Last Updated: 04/10/2016 8:03 EDT ; Life Cycle Date: 08/13/2013 ; Life Cycle Status: Active ; Vocabulary: SNOMED CT Multiple renal cysts (SNOMED CT :875316759 ) Name of Problem: Multiple renal cysts ; Recorder: KENYON CHAMBERS RN; Confirmation: Confirmed ; Classification: Medical ; Code: 930528368 ; Contributor System: [employer]Baby[employer] ; Last Updated: 04/10/2016 8:04 EDT ; Life Cycle Date: 08/13/2013 ; Life Cycle Status: Active ; Vocabulary: SNOMED CT Stented coronary artery (SNOMED CT :8705688691 ) Name of Problem: Stented coronary artery ; Recorder: KENYON CHAMBERS RN; Confirmation: Confirmed ; Classification: Medical ; Code: 6234537486 ; Contributor System: PressBabyChart ; Last Updated: 04/10/2016 8:03 EDT ; Life Cycle Date: 08/13/2013 ; Life Cycle Status: Active ; Vocabulary: SNOMED CT Diagnoses(Active) Syncope/Near syncope Date: 03/16/2021 ; Diagnosis Type: Reason For Visit ; Confirmation: Complaint of ; Clinical Dx: Syncope/Near syncope ; Classification: Medical ; Clinical Service: Emergency medicine ; Code: PNED ; Probability: 0 ; Diagnosis Code: [id number] ED Height and Weight Height Source : Stated Height Entry Format : [place] Height, Feet : 5 ft(Converted to: 152 cm, 60 Inch) Height, Inches : 3 Inch(Converted to: 0 ft 3 Inch, 7.62 cm) Clinical Height : 160.02 cm Weight Source, ED : Critical estimated dosing weight Weight Entry Format : [place] Weight, Pounds : 158 lb Clinical Dosing Weight : 71.82 kg Body Surface Area (BSA) : 1.75 m2 Body Mass Index : 28 kg/m2 (HI) [place] Body Weight (IBW) : 52.02 kg NICOLE CHEN RN - 03/16/2021 11:32 EDT Electronically signed by Sivan [facility] Conversion Head Up Operator Cerner at 02/04/2023 2:06 PM CDT documented in this encounter Plan of Treatment Not on file documented as of this encounter Visit Diagnoses Not on filedocumented in this encounter Care Teams Communication Equipment Mechanic Relationship Specialty Start Date End Date Jay Howell MD [address] [place] [phone] PCP - General Emergency Medicine 11/12/23 documented as of this encounter
--- OUTSIDE RECORDS SUMMARY | 2025-10-13 13:29 | XMS_ITS | Encounter Summary ---
Author Organization [employer] ([place], [place], [place], [place], [place]) Address [address] [place] [address] Care Team Providers Care Poultry Scientist Name Role Phone Jay Howell MD Primary Care Provider [phone] Encounter Details Date Type Department Care Team (Late st Contact Info) Description 07/18/2021 Transcribed Document [facility] [place] Family Medicine [address] [place] [address] ProviderJessie MD [address] [place], [place] [address] Social History Tobacco Use Types Packs/Day Years [...] EDT Electronically signed by Abel Finnegan Conversion Medicare Insurance Specialist Cerner at 02/04/2023 1:59 PM CDT documented in this encounter Plan of Treatment Not on file documented as of this encounter Visit Diagnoses Not on filedocumented in this encounter Care Teams Poultry Scientist Relationship Specialty Start Date End Date Jay Howell MD [address] [place] [phone] PCP - General Emergency Medicine 11/12/23 documented as of this encounter
--- OUTSIDE RECORDS SUMMARY | 2025-10-13 13:29 | XMS_ITS | Encounter Summary ---
Author Organization [employer] ([place], [place], [place], [place], [place]) Address [address] [place] [address] Care Team Providers Care Rabbler Name Role Phone Jay Howell MD Primary Care Provider [phone] Encounter Details Date Type Department Care Team (Late st Contact Info) Description 12/21/2018 Transcribed Document [facility] [place] Family Medicine [address] [place] [address] ProviderJessie MD [address] [place] [phone] Social History Tobacco Use Types Packs/Day Years Used Date Smoking Tobacco: Never Assessed Comments Unknown Sex and Gender Information Value Date Recorded Sex Assigned at Not on file Legal Sex Female 7:30 PM CDT Gender Identity Not on file Sexual Orientation Not on file documented as of this encounter Miscellaneous Notes * Cerner Conversion Note - Jessie Yuen MD - 12/21/2018 11:50 AM ROLL COATING MACHINE OPERATOR Patient Education Materials Follows: Groin Site Care [...] 11/05/2011 Document Revised: 12/25/2012 Document Reviewed: 11/05/2011 [employer] Corporation[employer]? Patient Information ?2014 MyClasses. Cardiovascular Coronary Artery Disease, Female Coronary artery [...] can cause a heart attack (myocardial infarction, [place]). CAD is a leading cause of for [...] 12/25/2012 Document Revised: 03/10/2017 Document Reviewed: 02/04/2015 Smartesting Interactive Patient Education ? 2017 Gogo. Nutrition Heart-Healthy Eating Plan Introduction Heart-healthy meal [...] What foods can I eat? GrainsBreads, including Surinamese, white, jie, wheat, raisin, rye, oatmeal, and Jamaican. Tortillas that are neither fried nor made with lard or trans fat. Low-fat rolls, including hotdog and hamburger buns and Angolan muffins. Biscuits. Muffins. Waffles. Pancakes. Light popcorn. Whole-grain cereals. Flatbread. Bushnell toast. Pretzels. Breadsticks. Rusks. Low-fat snacks. Low-fat [...] cottage cheese. Whole-milk cheeses, including blue (fredo), [place] Armand, Brie, Nate, Tristanian, Havarti, Tongan, cheddar, Camembert, and [place]. Whole or 2% milk that is liquid, [...] that has suet, meat fat, or shortening. Ryde butter, hydrogenated oils, palm oil, coconut oil, [...] including vitamins, herbs, eye drops, creams, and stej-pfa-hmshpkl medicines. ??? Any problems you or family [...] 07/13/2006 Document Revised: 03/16/2017 Document Reviewed: 03/06/2014 Smartesting Interactive Patient Education ? 2017 Gogo. Electronically signed by Gayle Finnegan Conversion Leadership Development Consultant Cerner at 02/04/2023 2:14 PM CDT documented in this encounter Plan of Treatment Not on file documented as of this encounter Visit Diagnoses Not on filedocumented in this encounter Care Teams Rabbler Relationship Specialty Start Date End Date Jay Howell MD [address] [place] [phone] PCP - General Emergency Medicine 11/12/23 documented as of this encounter
--- OUTSIDE RECORDS SUMMARY | 2025-10-13 13:29 | XMS_ITS | Encounter Summary ---
Author Organization [employer] ([place], [place], [place], [place], [place]) Address [address] [place] [address] Care Team Providers Care Access Liaison Name Role Phone Jay Howell MD Primary Care Provider [phone] Encounter Details Date Type Department Care Team (Late st Contact Info) Description 07/18/2021 Transcribed Document [facility] [place] Medicine [address] [place] [address] ProviderJessie MD [address] [place], [place] [phone] Social History Tobacco Use Types Packs/Day Years [...] 07/18/2021 8:15 PM CDT Electronically signed by [facility] Conversion Android Ios Developer Cerner at 02/04/2023 2:03 PM CDT documented in this encounter Plan of Treatment Not on file documented as of this encounter Visit Diagnoses Not on filedocumented in this encounter Care Teams Access Liaison Relationship Specialty Start Date End Date Jay Howell MD [address] [place] [phone] PCP - General Emergency Medicine 11/12/23 documented as of this encounter
--- OUTSIDE RECORDS SUMMARY | 2025-10-13 13:29 | XMS_ITS | Encounter Summary ---
Author Organization [email or web address] ([place], [place], [place], [place], [place]) Address [address] [place] [address] Care Team Providers Care Kennel Aide Name Role Phone Jay Howell MD Primary Care Provider [phone] Encounter Details Date Type Department Care Team (Late st Contact Info) Description 03/16/2021 Transcribed Document [facility] [place] Family Medicine [address] [place] [address] ProviderJessie MD [address] [place], [place] [address] Social History Tobacco Use Types Packs/Day Years [...] on filedocumented in this encounter Care Teams Kennel Aide Relationship Specialty Start Date End Date Jay Howell MD [address] [place] [phone] PCP - General Emergency Medicine 11/12/23 documented as of this encounter
--- OUTSIDE RECORDS SUMMARY | 2025-10-13 13:29 | XMS_ITS | Encounter Summary ---
Author Organization [employer] ([place], [place], [place], [place], [place]) Address [address] [place] [address] Care Team Providers Care Quality Tester Name Role Phone Jay Howell MD Primary Care Provider [phone] Encounter Details Date Type Department Care Team (Late st Contact Info) Description 03/16/2021 Transcribed Document [facility] [place] Family Medicine [address] [place] [address] ProviderJessie MD [address] [place], [place] [phone] Social History Tobacco Use Types Packs/Day Years [...] 03/16/2021 12:57 EDT Electronically signed by Sivan [facility] Conversion Rigger Helper Cerner at 02/04/2023 1:58 PM CDT documented in this encounter Plan of Treatment Not on file documented as of this encounter Visit Diagnoses Not on filedocumented in this encounter Care Teams Quality Tester Relationship Specialty Start Date End Date Jay Howell MD [address] [place] [phone] PCP - General Emergency Medicine 11/12/23 documented as of this encounter
--- OUTSIDE RECORDS SUMMARY | 2025-10-13 13:30 | XMS_ITS | Encounter Summary ---
Author Organization [employer] ([place], [place], [place], [place], [place]) Address [address] [place] [address] Care Team Providers Care Refuse Driver Name Role Phone Jay Howell MD Primary Care Provider [phone] Encounter Details Date Type Department Care Team (Late st Contact Info) Description 06/13/2020 Transcribed Document [facility] [place] Family Medicine [address] [place] [address] ProviderJessie MD [address] [place] [phone] Social History Tobacco Use Types Packs/Day Years [...] NASSAR RN Intervention Information: acetaminophen Performed by JAOO NASSAR RN on 06/13/2020 11:27:00 EDT acetaminophen,650mg Oral,Other (See Comment) Pain Assessment Pain Assessment : Follow-up assessment JOAO NASSAR RN - 06/13/2020 17:11 EDT Electronically signed by Sivan [facility] Conversion Fish Liver Sorter Cerner at 02/04/2023 1:59 PM CDT documented in this encounter Plan of Treatment Not on file documented as of this encounter Visit Diagnoses Not on filedocumented in this encounter Care Teams Refuse Driver Relationship Specialty Start Date End Date Jay Howell MD [address] [place] [phone] PCP - General Emergency Medicine 11/12/23 documented as of this encounter
--- OUTSIDE RECORDS SUMMARY | 2025-10-13 13:30 | XMS_ITS | Encounter Summary ---
Author Organization [employer] ([place], [place], [place], [place], [place]) Address [address] [place] [address] Care Team Providers Care Produce Wrapper Name Role Phone Jay Howell MD Primary Care Provider [phone] Encounter Details Date Type Department Care Team (Late st Contact Info) Description 06/14/2020 Transcribed Document [facility] [place] Family Medicine [address] [place] [address] ProviderJessie MD [address] [place] [address] Social History Tobacco Use Types Packs/Day Years [...] Diagnoses: None Author: FREDY YAÑEZ MD-CAR BASIC Cargo And Container Inspector: None Subjective NAD Health Status Allergies: Allergic [...] list: All Problems Arthritis / SNOMED CT 7692049 / Confirmed Atrial fibrillation with RVR / SNOMED CT 4769957586 / Confirmed Blood clot / SNOMED CT 097638933 / Confirmed Cataract / Patient Care / Confirmed Chest pain / SNOMED CT 10318026 / Complaint of Clotting disorder / SNOMED CT 533278006 / Confirmed COPD / SNOMED CT 19910397 / Confirmed Coronary artery disease / SNOMED CT 3533752935 / Confirmed Diabetes mellitus / SNOMED CT 431177005 / Confirmed GERD - Gastro-esophageal reflux disease / SNOMED CT 8137790459 / Confirmed Glaucoma / Patient Care / Confirmed Chronic anticoagulation / SNOMED CT 770972221 / Confirmed Hx of pulmonary embolus / SNOMED CT 043965599 / Confirmed High blood pressure / SNOMED CT 93832706 / Confirmed History of obstructive sleep apnea / IMO 76948112 / Confirmed Hyperlipidemia / SNOMED CT 82529212 / Confirmed Multiple renal cysts / SNOMED CT 454978858 / Confirmed Emphysema / SNOMED CT 950700905 / Confirmed Apnea, sleep / SNOMED CT 120081889 / Confirmed Stented coronary artery / SNOMED CT 8177373221 / Confirmed UTI - Urinary tract infection / SNOMED CT 1231067592 / Confirmed, Active Problems (21) Apnea, sleep [...] of motion, Normal strength. Integumentary: Warm, Dry, [place]. Neurologic: Alert, Oriented. Psychiatric: Cooperative, Appropriate mood & affect. Results Review JUN 14 05:28 136 105 7 / H 114 3.6 24 0.60 \ JUN 14 05:28 \ 12.0 / 5.2 177 / 35.2 \ Cardiac Markers (Current Encounter/Past 24 Hours) No Cardiac Marker Results Found (Past 24 Hours) Radiology Results (Last 48 hours) [id number] -- 06/13/2020 15:07 CR Chest 1 Vw [...] No change from prior. No acute process. [facility] IMPRESSION: Angiographically, the patient has [...] on filedocumented in this encounter Care Teams Produce Wrapper Relationship Specialty Start Date End Date Jay Howell MD [address] [place] [phone] PCP - General Emergency Medicine 11/12/23 documented as of this encounter
--- OUTSIDE RECORDS SUMMARY | 2025-10-13 13:30 | XMS_ITS | Encounter Summary ---
Author Organization [employer] ([place], [place], [place], [place], [place]) Address [address] [place] [address] Care Team Providers Care Manager Multicultural Name Role Phone Jay Howell MD Primary Care Provider [phone] Encounter Details Date Type Department Care Team (Late st Contact Info) Description 06/14/2020 Transcribed Document [facility] [place] Family Medicine [address] [place] [address] ProviderJessie MD [address] [place], [place] [address] Social History Tobacco Use Types Packs/Day Years [...] filedocumented in this encounter Care Teams Manager Multicultural Relationship Specialty Start Date End Date Jay Howell MD [address] [place] [phone] PCP - General Emergency Medicine 11/12/23 documented as of this encounter
--- OUTSIDE RECORDS SUMMARY | 2025-10-13 13:30 | XMS_ITS | Encounter Summary ---
Author Organization [employer] ([place], [place], [place], [place], [place]) Address [address] [place] [address] Care Team Providers Care Jewelry Sorter Name Role Phone Jay Howell MD Primary Care Provider [phone] Encounter Details Date Type Department Care Team (Late st Contact Info) Description 06/13/2020 Transcribed Document [facility] [place] [address] [place] [address] ProviderJessie MD [address] [place] [phone] Social History Tobacco Use Types Packs/Day Years [...] Ms. Montoya reported she would call for clinical assistant if/when she decides to complete one FARHANA PATEL - 06/13/2020 12:16 EDT Electronically signed by Gayle Finnegan Conversion Comprehensive Ophthalmologist Cerner at 02/04/2023 2:16 PM CDT documented in this encounter Plan of Treatment Not on file documented as of this encounter Visit Diagnoses Not on filedocumented in this encounter Care Teams Jewelry Sorter Relationship Specialty Start Date End Date Jay Howell MD [address] [place] [phone] PCP - General Emergency Medicine 11/12/23 documented as of this encounter
--- OUTSIDE RECORDS SUMMARY | 2025-10-13 13:30 | XMS_ITS | Encounter Summary ---
Author Organization [employer] ([place], [place], [place], [place], [place]) Address [address] [place] [address] Care Team Providers Care Nut Feeder Name Role Phone Jay Howell MD Primary Care Provider [phone] Encounter Details Date Type Department Care Team (Late st Contact Info) Description 06/13/2020 Transcribed Document [facility] [place] Family Medicine [address] [place] [address] ProviderJessie MD [address] [place] [address] Social History Tobacco Use Types Packs/Day Years [...] 06/13/2020 9:00 EDT by Joya Amaya [facility] Phone Call for Consults Consult Phone Call/Page Attempt : First call Consult Reason : chest pain Physician Requesting Consult : SMILEY ZAMORA MD Physician Requested for Consult : FREDY YAÑEZ MD-FLORA Provider Service Notified Name : Cardiology Physician Covering for Consult : FREDY YAÑEZ MD-FLORA Date and Time Call Returned : 06/13/2020 9:31 EDT Joya Amaya [facility] - 06/13/2020 10:00 EDT documented in this encounter Plan of Treatment Not on file documented as of this encounter Visit Diagnoses Not on filedocumented in this encounter Care Teams Nut Feeder Relationship Specialty Start Date End Date aJy Howell MD [address] [place] [phone] PCP - General Emergency Medicine 11/12/23 documented as of this encounter
--- OUTSIDE RECORDS SUMMARY | 2025-10-13 13:30 | XMS_ITS | Encounter Summary ---
Author Organization [employer] ([place], [place], [place], [place], [place]) Address [address] [place] [address] Care Team Providers Care Living Specialist Name Role Phone Jay Howell MD Primary Care Provider [phone] Encounter Details Date Type Department Care Team (Late st Contact Info) Description 06/13/2020 Transcribed Document [facility] [place] Family Medicine [address] [place] [address] ProviderJessie MD [address] [place] [phone] Social History Tobacco Use Types Packs/Day Years [...] Date End Date Jay Howell MD [address] [place] [phone] PCP - General Emergency Medicine 11/12/23 documented as of this encounter
--- OUTSIDE RECORDS SUMMARY | 2025-10-13 13:30 | XMS_ITS | Clinical Summary ---
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 She has denied any chest pain. Her last heart catheterization was November 25, 2022 at [facility] in [place] showing: -last C 11/25/2022- A. CAD s/p [...] of chest/PE protocol. Patient was sent to [facility] radiology department for CT [...] Type Department Care Team Description 10/07/2025 Telephone [facility] [address] [facility] 5th Floor [address], [address] [place] [address] System, Provider Not In, MD JAY Clinical Concern/Question 09/30/2025 5:24 PM EST - 10/01/2025 12:51 AM EST Emergency PAV A Emergency Department [address] [place] [address] Jesse May MD Belcher, Christopher N, MD PVD (peripheral vascular disease) (Primary Dx); Right lower lobe pulmonary nodule Discharge Disposition: Home or Self Care 09/30/2025 Travel 07/16/2025 Telephone [facility] [address] [place] [address] Kimmie Cabrera from Last 3 [...] place to sleep or slept in a assisted (including now)? No 08/06/2024 CAGE ASSESSMENT Answer [...] drink first t kathleen in the morning (EYE-POULTRY SLAUGHTERER) to steady your nerves or to get [...] Info) Description 10/24/2025 1:30 PM EST Appointment [facility] [address] [facility] 5th Floor [address], [address] [place] [address] 10/24/2025 2:20 PM EST Office Visit [facility] [address] [facility] 5th [address], [address] [place] [address] Zaida Nichols MD [address] [facility] [address] [place] [address] Health Maintenance Due Date Last [...] 09/17/2024 03/20/2024, 01/20/2024 [facility]Y-Depression Screening 04/03/2025 04/03/2024 [id number] Vaccine (2024- season) 2025 12/09/2021, 02/17/2021, 01/27/2021 [...] this topic Medical Devices Implanted Type Area Indirect Fire Infantryman Device Identifier Shelf Expiration Date Model / Serial / Lot Nail 10s Intertan 10mm X 36cm 130d Left - [id number] Implanted:Qty: 1 on 03/20/2024 by Haroldo Braden MD at [facility] Nail Left: Femur [id number] 08/04/2033 [id number] / / [id number] Nail Tibial [id number] - [id number] Implanted:Qty: 1 on 08/06/2024 by Haroldo Braden MD at [facility] Nail Right: Tibia [employer] ([facility])-[id number] 09/15/2033 [id number] / / [id number] Lag/Comp Screw Kit 90/85 - [id number] Implanted:Qty: 1 on 03/20/2024 by Haroldo Braden MD at [facility] Screw Left: Femur [employer]-[id number] 09/26/2033 [id number] / / [id number] Screw Trigen 5.0mm For Metanail 37.5mm - [id number] Implanted:Qty: 1 on 03/20/2024 by Haroldo Braden MD at [facility] Screw Left: Femur [employer]-[id number] 08/19/2033 [id number] / / [id number] Screw Locking Adv T2 T2 D5xl60 - [id number] Implanted:Qty: 1 on 08/06/2024 by Haroldo Braden MD at [facility] Screw Right: Tibia [employer] ([facility][id number] 05/16/2034 [id number] / / [id number] Screw Locking Adv T2 T2 D5xl50 - [id number] Implanted:Qty: 1 on 08/06/2024 by Haroldo Braden MD at [facility] Screw Right: [employer] ([facility][id number] 01/14/2034 [id number] / / [id number] Screw Locking T2 D5xl42.5 - [id number] Implanted:Qty: 1 on 08/06/2024 by Haroldo Braden MD at [facility] Screw Right: Tibia [employer] ([facility])-[id number] 05/16/2034 [id number] / / [id number] Screw Locking T2 D5x35 - [id number] Implanted:Qty: 1 on 08/06/2024 by Haroldo Braden MD at [facility] Screw Right: Tibia [employer] ([facility][id number] 05/16/2034 [id number] / / [id number] Procedures Procedure Name Priority Date/Time Associated Diagnosis [...] - 4.9 mmol/L 09/30/2025 9:54 PM EST [facility] Blood Venous blood specimen / Unknown Venipuncture / Unknown 09/30/2025 9:03 PM EST 09/30/2025 9:34 PM EST us Jesse May MD LAB BLOOD ORDERABLES Final Re sult [facility] [address] [place] [address] * CT Angio Abdomen Pelvis w Runoff [...] vascular findings were discussed via phone with Roin Zarco on 09/30/2025 11:50 PM by Farhad [...] fractures, though the right lateral ninth rib [id number] new from prior CT. Median sternotomy wires. [...] Lactic acid, venous (09/30/2025 7:25 PM EST) [facility] Lactate, Venous, Whole Blood 1.6 0.5 - 2.2 mmol/L LAB HEMATOLOGY METHOD 09/30/2025 7:32 PM EST [facility] Blood Venous blood specimen / Unknown Venipuncture / Unknown 09/30/2025 7:25 PM EST 09/30/2025 7:30 PM EST us Eldon Mcbride MD LAB BLOOD ORDERABLES Final Resul t [facility] [address] [place] [address] * ED HIV 1/2 Antibody/Antigen Screen w/Reflex to HIV 1/2 Differentiation (09/30/2025 5:24 PM EST) [facility] HIV 1 & 2 Antibody/Antigen Screen Non Reactive Non Reactive 09/30/2025 6:56 PM EST [facility] Comment:Screening for HIV 1 & 2 antibodies, and P24 antigen is NONREACTIVE. No confirmatory testing is required. Blood Venous blood specimen / Unknown Venipuncture / Unknown 09/30/2025 5:24 PM EST 09/30/2025 6:16 PM EST us Jovanni Gonsales MD LAB BLOOD ORDERABLES Final Res ult Performing Organization Address City/[facility]/ZIP Co de Phone Number [facility] [address] [place] [address] * Hepatitis C Antibody - ED (09/30/2025 5:24 PM EST) Hepatitis C Antibody Negative Negative 09/30/2025 6:56 PM EST [facility] Blood Venous blood specimen / Unknown Venipuncture / Unknown 09/30/2025 5:24 PM EST 09/30/2025 6:15 PM EST us Jovanni Gonsales MD LAB BLOOD ORDERABLES Final Res ult Performing Organization Address [facility] Co de Phone Number [facility] [address] [place] [address] * (ABNORMAL) CBC w/diff (09/30/2025 5:24 PM EST) Pathologist [facility] WBC Count 4.07 3.70 - 10.30 10*3/uL LAB HEMATOLOGY METHOD 09/30/2025 7:51 PM EST [facility] RBC Count 2.53(L) 3.90 - 5.20 10*6/uL LAB HEMATOLOGY METHOD 09/30/2025 7:51 PM EST [facility] HGB 9.9(L) 11.2 - 15.7 g/dL LAB HEMATOLOGY METHOD 09/30/2025 7:51 PM EST [facility] HCT 30.0(L) 34.0 - 45.0 % LAB HEMATOLOGY METHOD 09/30/2025 7:51 PM EST [facility] Platelet Count LAB HEMATOLOGY METHOD 09/30/2025 7:51 PM EST [facility] Comment:Platelet count not v alid due to clumping. Appears decreased. MCV 119(H) 79 - 98 fL LAB HEMATOLOGY METHOD 09/30/2025 7:51 PM EST [facility] MCH 39.1(H) 26.0 - 32.0 pg LAB HEMATOLOGY METHOD 09/30/2025 7:51 PM [facility] MCHC 33.0 30.7 - 35.5 g/dL LAB HEMATOLOGY METHOD 09/30/2025 7:51 PM [facility] RDW 15.9(H) 11.5 - 14.5 % LAB HEMATOLOGY METHOD 09/30/2025 7:51 PM [facility] MPV LAB HEMATOLOGY METHOD 09/30/2025 7:51 PM [facility] Comment:Not Measured Not Sandra sured nRBC 0.0 <=0.0 per 100 WBCs LAB HEMATOLOGY METHOD 09/30/2025 7:51 PM [facility] Differential Type Automated LAB HEMATOLOGY METHOD 09/30/2025 7:51 PM [facility] Neutrophils % 54 % LAB HEMATOLOGY METHOD 09/30/2025 7:51 PM [facility] Lymphocytes % 36 % LAB HEMATOLOGY METHOD 09/30/2025 7:51 PM [facility] Monocytes % 8 % LAB HEMATOLOGY METHOD 09/30/2025 7:51 PM [facility] Eosinophils % 0 % LAB HEMATOLOGY METHOD 09/30/2025 7:51 PM [facility] Basophils % 1 % LAB HEMATOLOGY METHOD 09/30/2025 7:51 PM [facility] Immature Granulocytes % 1 % LAB HEMATOLOGY METHOD 09/30/2025 7:51 PM [facility] Neutrophils Absolute 2.25 1.60 - 6.10 10*3/uL LAB HEMATOLOGY METHOD 09/30/2025 7:51 PM [facility] Lymphocytes Absolute 1.45 1.20 - 3.90 10*3/uL LAB HEMATOLOGY METHOD 09/30/2025 7:51 PM [facility] Monocytes Absolute 0.31 0.30 - 0.90 10*3/uL LAB HEMATOLOGY METHOD 09/30/2025 7:51 PM [facility] Eosinophils Absolute 0.01 0.00 - 0.50 10*3/uL LAB HEMATOLOGY METHOD 09/30/2025 7:51 PM [facility] Basophils Absolute 0.03 0.00 - 0.10 10*3/uL LAB HEMATOLOGY METHOD 09/30/2025 7:51 PM [facility] Immature Granulocytes Absolute 0.02 0.00 - 0.06 10*3/uL LAB HEMATOLOGY METHOD 09/30/2025 7:51 PM EST [facility] Blood Venous blood specimen / Unknown Venipuncture / Unknown 09/30/2025 5:24 PM EST 09/30/2025 5:39 PM EST Narrative [facility] - 09/30/2025 7:51 PM EST Therapeutic decision making should be based on absolute values, rather than percentages. us Jovanni Gonsales MD LAB BLOOD ORDERABLES Final Res ult [facility] [address] [place] [address] * (ABNORMAL) BMP (09/30/2025 5:24 PM EST) Glucose, Plasma 199(H) 74 - 99 mg/dL 09/30/2025 6:45 PM EST [facility] BUN, Plasma 28(H) 8 - 23 mg/dL 09/30/2025 6:45 PM EST [facility] Creatinine, Plasma 0.84 0.60 - 1.10 mg/dL 09/30/2025 6:45 PM EST [facility] BUN/Creatinine Ratio 33 09/30/2025 6:45 PM EST [facility] Sodium, Plasma 138 136 - 145 mmol/L 09/30/2025 6:45 PM EST [facility] Potassium, Plasma 5.5(H) 3.6 - 4.9 mmol/L 09/30/2025 6:45 PM EST [facility] Comment:Hemolyzed - Potassiu m may be falsely elevated by approximately 0.8-1.7 mmol/L. Chloride, Plasma 103 97 - 107 mmol/L 09/30/2025 6:45 PM EST [facility] CO2, Plasma 22 22 - 29 mmol/L 09/30/2025 6:45 PM EST [facility] Anion Gap 13 6 - 16 mmol/L 09/30/2025 6:45 PM EST [facility] Total Calcium, Plasma 9.0 8.9 - 10.2 mg/dL 09/30/2025 6:45 PM EST [facility] eGFRcr 68.2 mL/min/1.7 3m*2 09/30/2025 6:45 PM EST [facility] Comment:Reported eGFRcr in m L/min/1.73m2 is based the CKD-EPI 2020 equation that does not use a race coefficient. Blood Venous blood specimen / Unknown Venipuncture / Unknown 09/30/2025 5:24 PM EST 09/30/2025 6:15 PM EST us Jovanni Gonsales MD LAB BLOOD ORDERABLES Final Res ult Performing Organization Address City/[facility] Co de Phone Number [facility] [address] [place] [address] * Hemoglobin A1c (03/20/2024 12:53 AM EDT) Hemoglobin A1c 4.8 <5.7 % 03/20/2024 4:31 AM EDT [facility] Blood Venous blood specimen / Unknown Venipuncture / Unknown 03/20/2024 12:53 AM EDT 03/20/2024 12:57 AM EDT Narrative [facility] - 03/20/2024 4:31 AM EDT HA1C Interpretive Data: Diagnosis of Diabetes: Diabetic > or = 6.5% Pre-diabetic 5.7 to 6.4% Non-diabetic < or = 5.6% Glycemic Targets for Type I and Type II Diabetics: Non- Adults <7.0% Adults <6.0% Children and Adolescents <7.5% Source: [place] [employer]. Standards of medical care in diabetes,2017. Diabetes Care.2017:40 (suppl 1):S1-S135. HbA1c assay performed by an ion-exchange chromatography method that is certified traceable to the DCCT. us Gerhard Zazueta MD LAB BLOOD ORDERABLES Final Resu lt Performing Organization Address [facility] Co de Phone Number [facility] [address] [place] [address] from Last 3 Months or Most Recently Relevant to Health Maintenance Insurance MEDICARE Advance Directives Documents on File Type Date Recorded Patient Stock Feeder Expl anation Advance Directives and Livin g [...]
--- OUTSIDE RECORDS SUMMARY | 2025-10-13 13:30 | XMS_ITS | Encounter Summary ---
Author Organization [employer] ([place], [place], [place], [place]) Address [address] [place] [address] Care Team Providers Care Welding Machine Operator Name Role Phone Jay Howell MD Primary Care Provider [phone] Encounter Details Date Type Department Care Team (Late st Contact Info) Description 06/13/2020 Transcribed Document [facility] [place] [address] [place] [address] ProviderJessie MD [address] [place] [address] Social History Tobacco Use Types Packs/Day Years [...] Tobacco Cues : Verbalizes understanding Activities to [place] With Smoking Urges : Verbalizes understanding Basic [...] filedocumented in this encounter Care Teams Welding Machine Operator Relationship Specialty Start Date End Date Jay Howell MD [address] [place] [phone] PCP - General Emergency Medicine 11/12/23 documented as of this encounter
--- OUTSIDE RECORDS SUMMARY | 2025-10-13 13:30 | XMS_ITS | Encounter Summary ---
Author Organization [employer] ([place], [place], [place]) Address [address] [place] [address] Care Team Providers Care Store Manager Name Role Phone Jay Howell MD Primary Care Provider [phone] Encounter Details Date Type Department Care Team (Late st Contact Info) Description 06/13/2020 Transcribed Document [facility] Family Medicine [address] [place] [address] ProviderJessie MD [address] [place], [place] [address] Social History Tobacco Use Types Packs/Day Years [...] 06/13/2020 6:12 EDT Electronically signed by Sivan [facility] Conversion [address] Clerk Cerner at 02/04/2023 2:05 PM CDT documented in this encounter Plan of Treatment Not on file documented as of this encounter Visit Diagnoses Not on filedocumented in this encounter Care Teams Store Manager Relationship Specialty Start Date End Date Jay Howell MD [address] [place] [phone] PCP - General Emergency Medicine 11/12/23 documented as of this encounter
--- OUTSIDE RECORDS SUMMARY | 2025-10-13 13:30 | XMS_ITS | Encounter Summary ---
Author Organization [employer] ([place], [place], [place], [place]) Address [address] [place] [address] Care Team Providers Care Pe Teacher Name Role Phone Jay Howell MD Primary Care Provider [phone] Encounter Details Date Type Department Care Team (Late st Contact Info) Description 06/13/2020 Transcribed Document [facility] Family Medicine [address] [place] [address] ProviderJessie MD [address] [place], [place] [address] Social History Tobacco Use Types Packs/Day Years [...] on RA. FSBS noted. Fall team and DIGITAL SALES PLANNER team notified but they were in another DIGITAL SALES PLANNER call. PT feels clammy and light headed [...] - 06/13/2020 16:24 EDT Electronically signed by [facility] Conversion Pulverizer Cerner at 02/04/2023 2:04 PM CDT documented in this encounter Plan of Treatment Not on file documented as of this encounter Visit Diagnoses Not on filedocumented in this encounter Care Teams Pe Teacher Relationship Specialty Start Date End Date Jay Howell MD [address] [place] [phone] PCP - General Emergency Medicine 11/12/23 documented as of this encounter
--- OUTSIDE RECORDS SUMMARY | 2025-10-13 13:30 | XMS_ITS | Encounter Summary ---
Author Organization [employer] ([place], [place], [place]) Address [address] [place] [address] Care Team Providers Care [address] Cleaning Equipment Operator Name Role Phone Jay Howell MD Primary Care Provider [phone] Encounter Details Date Type Department Care Team (Late st Contact Info) Description 06/13/2020 Transcribed Document [facility] [place] Family Medicine [address] [place] [address] ProviderJessie MD [address] [place] [phone] Social History Tobacco Use Types Packs/Day Years [...] Ministry Provided to : Patient, Family/Significant other Restoration Preference : Gnosticist FARHANA PATEL - 06/13/2020 12:13 EDT Interventions Advance Directive Information Provided : Yes Advance Directive Comment : Discussed Living Will; Ms. Montoya requested information only; Gave copy of Personal Choices booklet; Ms. Montoya reported she would call for pacu rn if/when she decides to complete one Emotional Support : Empathic/Engaged listening, Family/Significant other supported, Feelings expressed, Information provided Spiritual and Restoration : Spiritual/Restoration support provided Change, Adjustment and Loss : [...] - 06/13/2020 12:13 EDT Electronically signed by [facility] Conversion Thermostat Mechanic Cerner at 02/04/2023 2:00 PM CDT documented in this encounter Plan of Treatment Not on file documented as of this encounter Visit Diagnoses Not on filedocumented in this encounter Care Teams Street Cleaning Equipment Operator Relationship Specialty Start Date End Date Jay Howell MD [address] [place] [phone] PCP - General Emergency Medicine 11/12/23 documented as of this encounter
--- OUTSIDE RECORDS SUMMARY | 2025-10-13 13:30 | XMS_ITS | Encounter Summary ---
Author Organization [employer] ([place], [place], [place], [place]) Address [address] [place] [address] Care Team Providers Care Settlement Processor Name Role Phone Jay Howell MD Primary Care Provider [phone] Encounter Details Date Type Department Care Team (Late st Contact Info) Description 06/13/2020 Transcribed Document [facility] Family Medicine [address] [place] [address] ProviderJessie MD [address] [place] [phone] Social History Tobacco Use Types Packs/Day Years [...] on filedocumented in this encounter Care Teams Settlement Processor Relationship Specialty Start Date End Date Jay Howell MD [address] [place] [phone] PCP - General Emergency Medicine 11/12/23 documented as of this encounter
--- OUTSIDE RECORDS SUMMARY | 2025-10-13 13:30 | XMS_ITS | Encounter Summary ---
Author Organization [employer] ([place], [place], [place]) Address [address] [place] [address] Care Team Providers Care Road Grader Name Role Phone Jay Howell MD Primary Care Provider [phone] Encounter Details Date Type Department Care Team (Late st Contact Info) Description 06/13/2020 Transcribed Document [facility] [place] [address] [place] [address] ProviderJessie MD [address] [place] [phone] Social History Tobacco Use Types Packs/Day Years [...] filedocumented in this encounter Care Teams Road Grader Relationship Specialty Start Date End Date Jay Howell MD [address] [place] [phone] PCP - General Emergency Medicine 11/12/23 documented as of this encounter
--- OUTSIDE RECORDS SUMMARY | 2025-10-13 13:30 | XMS_ITS | Encounter Summary ---
Author Organization [employer] ([place], [place], [place], [place]) Address [address] [place] [address] Care Team Providers Care Industrial Welder Name Role Phone Jay Hoewll MD Primary Care Provider [phone] Encounter Details Date Type Department Care Team (Late st Contact Info) Description 06/13/2020 Transcribed Document [facility] [place] Family Medicine [address] [place] [address] ProviderJessie MD [address] [place] [phone] Social History Tobacco Use Types Packs/Day Years [...] Problem list: Medical Arthritis / SNOMED CT 5391451 / Confirmed Atrial fibrillation with RVR / SNOMED CT 3290295992 / Confirmed Cataract / Patient Care / Confirmed Chest pain / SNOMED CT 03255783 / Complaint of COPD / SNOMED CT 01364109 / Confirmed Coronary artery disease / SNOMED CT 1518965758 / Confirmed Diabetes mellitus / SNOMED CT 020851726 / Confirmed GERD - Gastro-esophageal reflux disease / SNOMED CT 9545734234 / Confirmed Glaucoma / Patient Care / Confirmed Chronic anticoagulation / SNOMED CT 340099649 / Confirmed Hx of pulmonary embolus / SNOMED CT 333112248 / Confirmed High blood pressure / SNOMED CT 47798733 / Confirmed History of obstructive sleep apnea / IMO [id number] / Confirmed Hyperlipidemia / SNOMED CT 62461445 / Confirmed Multiple renal cysts / SNOMED CT 522522713 / Confirmed Emphysema / SNOMED CT 421693325 / Confirmed Apnea, sleep / SNOMED CT 262720042 / Confirmed Stented coronary artery / SNOMED CT 1950114301 / Confirmed UTI - Urinary tract infection / SNOMED CT 7513356785 / Confirmed, Active Problems (21) Apnea, sleep [...] and time 36mins Electronically signed by Interface, [facility] Conversion Chlorination Operator Cerner at 02/04/2023 2:21 PM CDT documented in this encounter Plan of Treatment Not on file documented as of this encounter Visit Diagnoses Not on filedocumented in this encounter Care Teams Industrial Welder Relationship Specialty Start Date End Date Jay Howell MD [address] [place] [phone] PCP - General Emergency Medicine 11/12/23 documented as of this encounter
--- OUTSIDE RECORDS SUMMARY | 2025-10-13 13:30 | XMS_ITS | Encounter Summary ---
Author Organization [employer] ([place], [place], [place], [place]) Address [address] [place] [address] Care Team Providers Care Medical Sales Representative Name Role Phone Jay Howell MD Primary Care Provider [phone] Encounter Details Date Type Department Care Team (Late st Contact Info) Description 06/13/2020 Transcribed Document [facility] [place] Family Medicine [address] [place] [address] ProviderJessie MD [address] [place] [address] Social History Tobacco Use Types Packs/Day Years [...] Tobacco Cues : Verbalizes understanding Activities to [place] With Smoking Urges : Verbalizes understanding Basic [...] filedocumented in this encounter Care Teams Medical Sales Representative Relationship Specialty Start Date End Date Jay Howell MD [address] [place] [phone] PCP - General Emergency Medicine 11/12/23 documented as of this encounter
--- OUTSIDE RECORDS SUMMARY | 2025-10-13 13:30 | XMS_ITS | Encounter Summary ---
Author Organization [employer] ([place], [place], [place], [place], [place]) Address [address] [place] [address] Care Team Providers Care Breeder Service Technician Name Role Phone Jay Howell MD Primary Care Provider [phone] Encounter Details Date Type Department Care Team (Late st Contact Info) Description 06/13/2020 Transcribed Document [facility] [place] [facility] [address] [place] [id number] ProviderJessie MD [address] [place] [phone] Social History Tobacco Use Types Packs/Day Years [...] Insurance 1 Health Plan: MEDICARE Policy Number: [id number] Authorization Number: Insurance 2 Health Plan: [employer] N Policy Number: [id number] Authorization Number: Insurance Primary Name : MEDICARE Policy Number: [id number] Authorized Service Begin Date-Primary : 06/12/2020 EDT Historical Authorization Comments-Primary : No Authorization Comments Found MARILYNN RAMÍREZ, RN-Utilization Review - 06/13/2020 9:06 EDT documented in this encounter Plan of Treatment Not on file documented as of this encounter Visit Diagnoses Not on filedocumented in this encounter Care Teams Breeder Service Technician Relationship Specialty Start Date End Date Jay Howell MD [address] [place] [phone] PCP - General Emergency Medicine 11/12/23 documented as of this encounter
--- OUTSIDE RECORDS SUMMARY | 2025-10-13 13:30 | XMS_ITS | Clinical Summary ---
Author Organization 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 Active nalOXone (NARCAN) 4 mg/actuation Nasl Holly, Non-Aerosol 0.1 mL by Nasal route as needed for Opioid Reversal. Holly the contents of one device (0.1mL) into [...] (06/10/2025 5:51 PM EDT): - transferred to [facility] 05/26 with hypotension and hypoxia - pulm edema on cxr - echo with EF 55-60%, indeterminate diastolic function, pulm pressure 41 mmHg - diuresis Assessment & Plan (06/09/2025 11:10 AM EDT): - transferred to [facility] 05/26 with hypotension and hypoxia - pulm edema on cxr - echo with EF 55-60%, indeterminate diastolic function, pulm pressure 41 mmHg - diuresis Assessment & Plan (06/08/2025 11:33 AM EDT): - transferred to [facility] 05/26 with hypotension and hypoxia - pulm edema on cxr - echo with EF 55-60%, indeterminate diastolic function, pulm pressure 41 mmHg - diuresis Assessment & Plan (06/07/2025 12:27 PM EDT): - transferred to [facility] 05/26 with hypotension and hypoxia - pulm edema on cxr - echo with EF 55-60%, indeterminate diastolic function, pulm pressure 41 mmHg - diuresis Assessment & Plan (06/06/2025 3:47 PM EDT): - transferred to [facility] 05/26 with hypotension and hypoxia - pulm edema on cxr - echo with EF 55-60%, indeterminate diastolic function, pulm pressure 41 mmHg - diuresis Assessment & Plan (06/05/2025 12:46 PM EDT): - transferred to [facility] 8/ with hypotension and hypoxia - pulm edema on cxr - echo with EF 55-60%, indeterminate diastolic function, pulm pressure 41 mmHg - diuresis Assessment & Plan (06/04/2025 1:59 PM EDT): - transferred to [facility] 8/ with hypotension and hypoxia - [...] (06/02/2025 9:53 AM EDT): - transferred to [facility] 8/ with hypotension and hypoxia - pulm edema on cxr - echo with EF 55-60%, indeterminate diastolic function, pulm pressure 41 mmHg - diurese as below Assessment & Plan (06/01/2025 9:51 AM EDT): - transferred to [facility] 8/ with hypotension and hypoxia - pulm edema on cxr - echo with EF 55-60%, indeterminate diastolic function, pulm pressure 41 mmHg - limited diuresis due to below - on RA now Assessment & Plan (05/31/2025 8:02 AM EDT): - transferred to [facility] 8/ with hypotension and hypoxia - pulm edema on cxr - echo with EF 55-60%, indeterminate diastolic function, pulm pressure 41 mmHg - limited diuresis due to below - remains on 2L now Assessment & Plan (05/30/2025 11:39 AM EDT): - transferred to [facility] 8/ with hypotension and hypoxia - [...] (06/10/2025 5:51 PM EDT): - transferred to [facility] 05/26 with hypotension and hypoxia - [...] pain remains an issue. No better with ACADEMIC ADVISING DIRECTOR. Will stop that and adjust prns [...] pain remains an issue. No better with ACADEMIC ADVISING DIRECTOR. 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 - vascular consulted - arterial studies 7/17 with significant PAD - NURSE INFORMATICS EDUCATOR stenosis Patent popliteal and TPT with severe stenosis Patent proximal JIG AND FIXTURE REPAIRER but occluded distally without reconstitution Patent DAREN with multifocal severe stenosis, occlusion at the level of the ankle and no distal reconstitution Significant small vessel disease in L foot Assessment & Plan (05/17/2025 9:16 AM EDT): History of angiogram 01/2025. - vascular consulted - arterial studies 7/17 with significant PAD - NURSE INFORMATICS EDUCATOR stenosis Patent popliteal and TPT with severe stenosis Patent proximal JIG AND FIXTURE REPAIRER but occluded distally without reconstitution Patent DAREN with multifocal severe stenosis, occlusion at the level of the ankle and no distal reconstitution Significant small vessel disease in L foot Assessment & Plan (05/16/2025 2:50 PM EDT): History of angiogram 01/2025. - vascular consulted - arterial studies 7/17 with significant PAD - NURSE INFORMATICS EDUCATOR stenosis Patent popliteal and TPT with severe stenosis Patent proximal JIG AND FIXTURE REPAIRER but occluded distally without reconstitution Patent DAREN with multifocal severe stenosis, occlusion at the level of the ankle and no distal reconstitution Significant small vessel disease in L foot Assessment & Plan (05/15/2025 2:22 PM EDT): History of angiogram 01/2025. - vascular consulted - arterial studies 7/17 with significant PAD - NURSE INFORMATICS EDUCATOR stenosis Patent popliteal and TPT with severe stenosis Patent proximal JIG AND FIXTURE REPAIRER but occluded distally without reconstitution Patent DAREN with multifocal severe stenosis, occlusion at the level of the ankle and no distal reconstitution Significant small vessel disease in L foot Assessment & Plan (05/14/2025 10:10 AM EDT): History of angiogram 01/2025. - vascular consulted - arterial studies 7/17 with significant PAD - NURSE INFORMATICS EDUCATOR stenosis Patent popliteal and TPT with severe stenosis Patent proximal JIG AND FIXTURE REPAIRER but occluded distally without reconstitution Patent DAREN with multifocal severe stenosis, occlusion at the level of the ankle and no distal reconstitution Significant small vessel disease in L foot Assessment & Plan (05/13/2025 9:08 AM EDT): History of angiogram 01/2025. - vascular consulted - arterial studies 7/17 with significant PAD - NURSE INFORMATICS EDUCATOR stenosis Patent popliteal and TPT with severe stenosis Patent proximal JIG AND FIXTURE REPAIRER but occluded distally without reconstitution Patent DAREN with multifocal severe stenosis, occlusion at the level of the ankle and no distal reconstitution Significant small vessel disease in L foot Assessment & Plan (05/12/2025 10:17 AM EDT): History of angiogram 01/2025. - vascular consulted - arterial studies 7/17 with significant PAD - NURSE INFORMATICS EDUCATOR stenosis Patent popliteal and TPT with severe stenosis Patent proximal JIG AND FIXTURE REPAIRER but occluded distally without reconstitution Patent DAREN with multifocal severe stenosis, occlusion at the level of the ankle and no distal reconstitution Significant small vessel disease in L foot Assessment & Plan (05/11/2025 11:59 AM EDT): History of angiogram 01/2025. 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 -- [...] - monitor I/O, daily weights - diuresis: JIG AND FIXTURE REPAIRER lasix on hold - JIG AND FIXTURE REPAIRER coreg -Stable 05/20/25 Assessment & Plan (05/19/2025 11:25 AM EDT): Echo 2023 normal EF. Euvolemic on exam - monitor I/O, daily weights - diuresis: JIG AND FIXTURE REPAIRER lasix on hold - JIG AND FIXTURE REPAIRER coreg -Stable 05/19/25 Assessment & Plan (05/18/2025 8:38 AM EDT): Echo 2023 normal EF. Euvolemic on exam - monitor I/O, daily weights - diuresis: JIG AND FIXTURE REPAIRER lasix on hold - JIG AND FIXTURE REPAIRER coreg -Stable 05/18/25 Assessment & Plan (05/17/2025 9:16 AM EDT): Echo 2023 normal EF. Euvolemic on exam - monitor I/O, daily weights - diuresis: JIG AND FIXTURE REPAIRER lasix on hold - JIG AND FIXTURE REPAIRER coreg -Stable 05/17/25 Assessment & Plan (05/16/2025 2:50 PM EDT): Echo 2023 normal EF. Euvolemic on exam - monitor I/O, daily weights - diuresis: JIG AND FIXTURE REPAIRER lasix on hold - JIG AND FIXTURE REPAIRER coreg -Stable 05/16/25 Assessment & Plan (05/15/2025 2:22 PM EDT): Echo 2023 normal EF. Euvolemic on exam - monitor I/O, daily weights - diuresis: JIG AND FIXTURE REPAIRER lasix on hold - JIG AND FIXTURE REPAIRER coreg -Stable 05/15/25 Assessment & Plan (05/14/2025 2:51 PM EDT): Echo 2023 normal EF. Euvolemic on exam - monitor I/O, daily weights - diuresis: JIG AND FIXTURE REPAIRER lasix on hold - JIG AND FIXTURE REPAIRER coreg -Stable 05/14/25 Assessment & Plan (05/13/2025 9:08 AM EDT): Echo 2023 normal EF. Euvolemic on exam - monitor I/O, daily weights - diuresis: JIG AND FIXTURE REPAIRER lasix on hold - JIG AND FIXTURE REPAIRER coreg Assessment & Plan (05/12/2025 10:17 AM EDT): Echo 2023 normal EF. Euvolemic on exam - monitor I/O, daily weights - diuresis: JIG AND FIXTURE REPAIRER lasix on hold - JIG AND FIXTURE REPAIRER coreg Assessment & Plan (05/11/2025 7:12 AM EDT): Echo 2023 normal EF. Euvolemic on exam - monitor I/O, daily weights - diuresis: JIG AND FIXTURE REPAIRER lasix on hold - JIG AND FIXTURE REPAIRER coreg Assessment & Plan (05/10/2025 1:54 PM EDT): Echo 2023 normal EF. Euvolemic on exam - monitor I/O, daily weights - diuresis: JIG AND FIXTURE REPAIRER lasix on hold - JIG AND FIXTURE REPAIRER coreg Assessment & Plan (05/09/2025 7:00 AM EDT): Echo 2023 normal EF. Euvolemic on exam - monitor I/O, daily weights - diuresis: JIG AND FIXTURE REPAIRER lasix on hold - JIG AND FIXTURE REPAIRER coreg Assessment & Plan (05/08/2025 6:56 AM EDT): Echo 2023 normal EF. Euvolemic on exam - monitor I/O, daily weights - diuresis: JIG AND FIXTURE REPAIRER lasix on hold - JIG AND FIXTURE REPAIRER coreg Assessment & Plan (05/07/2025 7:10 AM EDT): Echo 2023 normal EF. Euvolemic on exam - monitor I/O, daily weights - diuresis: JIG AND FIXTURE REPAIRER lasix on hold - JIG AND FIXTURE REPAIRER coreg Assessment & Plan (05/06/2025 9:31 AM EDT): Echo 2023 normal EF. Euvolemic on exam - monitor I/O, daily weights - diuresis: JIG AND FIXTURE REPAIRER lasix on hold - JIG AND FIXTURE REPAIRER coreg Assessment & Plan (05/05/2025 1:00 PM EDT): Echo 2023 normal EF. Euvolemic on exam - monitor I/O, daily weights - diuresis: JIG AND FIXTURE REPAIRER lasix on hold - JIG AND FIXTURE REPAIRER coreg Assessment & Plan (05/05/2025 12:57 PM EDT): Echo 2023 normal EF. Euvolemic on exam - monitor I/O, daily weights - diuresis: JIG AND FIXTURE REPAIRER lasix on hold - JIG AND FIXTURE REPAIRER coreg Assessment & Plan (05/03/2025 6:33 PM [...] Plan (01/15/2025 6:29 AM EDT): -- Lasix JIG AND FIXTURE REPAIRER. Continued -- appears compensated >> stable Assessment & Plan (01/15/2025 6:21 AM EDT): -- Lasix JIG AND FIXTURE REPAIRER. Continued -- appears compensated Assessment & Plan (01/15/2025 6:10 AM EDT): -- Lasix JIG AND FIXTURE REPAIRER. 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 Not on AC d/t hx of SAH - JIG AND FIXTURE REPAIRER coreg - cardiac monitoring -Rate controlled 05/20/25 Assessment & Plan (05/19/2025 11:25 AM EDT): Heart rate controlled. Not on AC d/t hx of SAH - JIG AND FIXTURE REPAIRER coreg - cardiac monitoring -Rate controlled 05/19/25 Assessment & Plan (05/18/2025 8:38 AM EDT): Heart rate controlled. Not on AC d/t hx of SAH - JIG AND FIXTURE REPAIRER coreg - cardiac monitoring -Rate controlled 05/18/25 Assessment & Plan (05/17/2025 9:16 AM EDT): Heart rate controlled. Not on AC d/t hx of SAH - JIG AND FIXTURE REPAIRER coreg - cardiac monitoring -Rate controlled 05/17/25 Assessment & Plan (05/16/2025 2:50 PM EDT): Heart rate controlled. Not on AC d/t hx of SAH - JIG AND FIXTURE REPAIRER coreg - cardiac monitoring -Rate controlled 05/16/25 Assessment & Plan (05/15/2025 2:22 PM EDT): Heart rate controlled. Not on AC d/t hx of SAH - JIG AND FIXTURE REPAIRER coreg - cardiac monitoring -Heart rate 94 Assessment & Plan (05/14/2025 10:10 AM EDT): Heart rate controlled. Not on AC d/t hx of SAH - JIG AND FIXTURE REPAIRER coreg - cardiac monitoring -Heart rate 94 Assessment & Plan (05/13/2025 1:41 PM EDT): Heart rate controlled. Not on AC d/t hx of SAH - JIG AND FIXTURE REPAIRER coreg - cardiac monitoring -Heart rate 94 Assessment & Plan (05/12/2025 10:17 AM EDT): Heart rate controlled. Not on AC d/t hx of SAH - JIG AND FIXTURE REPAIRER coreg - cardiac monitoring -Heart rate 83 Assessment & Plan (05/11/2025 11:59 AM EDT): Heart rate controlled. Not on AC d/t hx of SAH - JIG AND FIXTURE REPAIRER coreg - cardiac monitoring -Heart rate 98 Assessment & Plan (05/10/2025 1:54 PM EDT): Heart rate controlled. Not on AC d/t hx of SAH - JIG AND FIXTURE REPAIRER coreg - cardiac monitoring -Heart rate 83 Assessment & Plan (05/09/2025 10:25 AM EDT): Heart rate controlled. Not on AC d/t hx of SAH - JIG AND FIXTURE REPAIRER coreg - cardiac monitoring -Heart rate 75 Assessment & Plan (05/08/2025 1:05 PM EDT): Heart rate controlled. Not on AC d/t hx of SAH - JIG AND FIXTURE REPAIRER coreg - cardiac monitoring -Heart rate 80 Assessment & Plan (05/07/2025 2:02 PM EDT): Heart rate controlled. Not on AC d/t hx of SAH - JIG AND FIXTURE REPAIRER coreg - cardiac monitoring -Heart rate 81 Assessment & Plan (05/06/2025 9:31 AM EDT): Heart rate controlled. Not on AC d/t hx of SAH - JIG AND FIXTURE REPAIRER coreg - cardiac monitoring Assessment & Plan (05/05/2025 1:00 PM EDT): Heart rate controlled. Not on AC d/t hx of SAH - JIG AND FIXTURE REPAIRER coreg - cardiac monitoring Assessment & Plan (05/05/2025 12:57 PM EDT): Heart rate controlled. Not on AC d/t hx of SAH - JIG AND FIXTURE REPAIRER coreg - cardiac monitoring Assessment & Plan [...] (01/15/2025 6:29 AM EDT): -- Coreg, ASA JIG AND FIXTURE REPAIRER. Continued -- Not on anticoagulation due to his history of subarachnoid hemorrhage and fall risk -- In and out of atrial fibrillation. Assessment & Plan (01/15/2025 6:21 AM EDT): -- Coreg, ASA JIG AND FIXTURE REPAIRER. Continued -- Not on anticoagulation due to his history of subarachnoid hemorrhage and fall risk -- In and out of atrial fibrillation. Assessment & Plan (01/15/2025 6:10 AM EDT): -- Coreg, ASA JIG AND FIXTURE REPAIRER. Continued -- Not on anticoagulation due to his history of subarachnoid hemorrhage and fall risk -- In and out of atrial fibrillation. Assessment & Plan (01/12/2025 10:29 PM EDT): -- Coreg, ASA JIG AND FIXTURE REPAIRER Carotid stenosis, symptomatic w/o infarct, bilat eral 04/28/2023 Overview (01/12/2025): Last Assessment & Plan: Carotid duplex from 05/10/2023- bilateral carotid artery stenosis (50-69%). A referral to CT surgery was sent by Shannon Flor APRN at last office visit. She is scheduled to see Dr. Alcantara on 06/06/2023. Assessment & Plan (01/28/2025 9:59 AM EDT): -- ASA, Lipitor JIG AND FIXTURE REPAIRER. Continued. Following Assessment & Plan (01/27/2025 2:14 PM EDT): -- ASA, Lipitor JIG AND FIXTURE REPAIRER. Continued. Following Assessment & Plan (01/26/2025 12:09 PM EDT): -- ASA, Lipitor JIG AND FIXTURE REPAIRER. Continued. Following Assessment & Plan (01/25/2025 12:22 PM EDT): -- ASA, Lipitor JIG AND FIXTURE REPAIRER. Continued. Following Assessment & Plan (01/24/2025 9:38 AM EDT): -- ASA, Lipitor JIG AND FIXTURE REPAIRER. Continued. Following Assessment & Plan (01/23/2025 1:07 PM EDT): -- ASA, Lipitor JIG AND FIXTURE REPAIRER. Continued. Following Assessment & Plan (01/22/2025 10:03 AM EDT): -- ASA, Lipitor JIG AND FIXTURE REPAIRER. Continued. Following Assessment & Plan (01/21/2025 12:19 PM EDT): -- ASA, Lipitor JIG AND FIXTURE REPAIRER. Continued. Following Assessment & Plan (01/20/2025 2:21 PM EDT): -- ASA, Lipitor JIG AND FIXTURE REPAIRER. Continued. Following Assessment & Plan (01/19/2025 1:36 PM EDT): -- ASA, Lipitor JIG AND FIXTURE REPAIRER. Continued. Following Assessment & Plan (01/18/2025 1:04 PM EDT): -- ASA, Lipitor JIG AND FIXTURE REPAIRER. Continued. Following Assessment & Plan (01/17/2025 1:00 PM EDT): -- ASA, Lipitor JIG AND FIXTURE REPAIRER. Continued. Following Assessment & Plan (01/16/2025 9:59 AM EDT): -- ASA, Lipitor JIG AND FIXTURE REPAIRER. Continued. Following Assessment & Plan (01/15/2025 11:35 AM EDT): -- ASA, Lipitor JIG AND FIXTURE REPAIRER. Continued. Following Assessment & Plan (01/15/2025 6:29 AM EDT): -- ASA, Lipitor JIG AND FIXTURE REPAIRER. 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 Continued Assessment & Plan (01/15/2025 6:21 AM EDT): -- Coreg, Lipitor, ASA, [place] JIG AND FIXTURE REPAIRER. Continued Assessment & Plan (01/15/2025 6:10 AM EDT): -- Coreg, Lipitor, ASA, [place] JIG AND FIXTURE REPAIRER. Continued -- CP -- Cardiology consulted -- [...] PM EDT): -- Coreg, Lipitor, ASA, [place] JIG AND FIXTURE REPAIRER Secondary open-angle glaucoma of right eye, ileana [...] PM EDT): Last A1c 4.8 in 03/2024. JIG AND FIXTURE REPAIRER meds include none. - hold off on FSBS, correctional algorithm - rpt A1c 5.3 - stable 05/20/25 Assessment & Plan (05/19/2025 3:11 PM EDT): Last A1c 4.8 in 03/2024. JIG AND FIXTURE REPAIRER meds include none. - hold off on FSBS, correctional algorithm - rpt A1c 5.3 - stable 05/19/25 Assessment & Plan (05/18/2025 8:38 AM EDT): Last A1c 4.8 in 03/2024. JIG AND FIXTURE REPAIRER meds include none. - hold off on FSBS, correctional algorithm - rpt A1c 5.3 Assessment & Plan (05/17/2025 9:16 AM EDT): Last A1c 4.8 in 03/2024. JIG AND FIXTURE REPAIRER meds include none. - hold off on FSBS, correctional algorithm - rpt A1c 5.3 Assessment & Plan (05/16/2025 2:50 PM EDT): Last A1c 4.8 in 03/2024. JIG AND FIXTURE REPAIRER meds include none. - hold off on FSBS, correctional algorithm - rpt A1c 5.3 Assessment & Plan (05/15/2025 2:22 PM EDT): Last A1c 4.8 in 03/2024. JIG AND FIXTURE REPAIRER meds include none. - hold off on FSBS, correctional algorithm - rpt A1c 5.3 Assessment & Plan (05/14/2025 10:10 AM EDT): Last A1c 4.8 in 03/2024. JIG AND FIXTURE REPAIRER meds include none. - hold off on FSBS, correctional algorithm - rpt A1c 5.3 Assessment & Plan (05/13/2025 9:08 AM EDT): Last A1c 4.8 in 03/2024. JIG AND FIXTURE REPAIRER meds include none. - hold off on FSBS, correctional algorithm - rpt A1c 5.3 Assessment & Plan (05/12/2025 10:17 AM EDT): Last A1c 4.8 in 03/2024. JIG AND FIXTURE REPAIRER meds include none. - hold off on FSBS, correctional algorithm - rpt A1c 5.3 Assessment & Plan (05/11/2025 7:12 AM EDT): Last A1c 4.8 in 03/2024. JIG AND FIXTURE REPAIRER meds include none. - hold off on FSBS, correctional algorithm - rpt A1c 5.3 Assessment & Plan (05/10/2025 1:54 PM EDT): Last A1c 4.8 in 03/2024. JIG AND FIXTURE REPAIRER meds include none. - hold off on FSBS, correctional algorithm - rpt A1c 5.3 Assessment & Plan (05/09/2025 7:00 AM EDT): Last A1c 4.8 in 03/2024. JIG AND FIXTURE REPAIRER meds include none. - hold off on FSBS, correctional algorithm - rpt A1c 5.3 Assessment & Plan (05/08/2025 6:56 AM EDT): Last A1c 4.8 in 03/2024. JIG AND FIXTURE REPAIRER meds include none. - hold off on FSBS, correctional algorithm - rpt A1c 5.3 Assessment & Plan (05/07/2025 7:10 AM EDT): Last A1c 4.8 in 03/2024. JIG AND FIXTURE REPAIRER meds include none. - hold off on FSBS, correctional algorithm - rpt A1c 5.3 Assessment & Plan (05/06/2025 9:31 AM EDT): Last A1c 4.8 in 03/2024. JIG AND FIXTURE REPAIRER meds include none. - hold off on FSBS, correctional algorithm - rpt A1c 5.3 Assessment & Plan (05/05/2025 1:00 PM EDT): Last A1c 4.8 in 03/2024. JIG AND FIXTURE REPAIRER meds include none. - hold off on FSBS, correctional algorithm - note metformin started - will stop given plans for angiogram this week - rpt A1c ordered Assessment & Plan (05/05/2025 12:57 PM EDT): Last A1c 4.8 in 03/2024. JIG AND FIXTURE REPAIRER meds include none. 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 Continued home meds Assessment & Plan (01/27/2025 2:14 PM EDT): -- Lipitor JIG AND FIXTURE REPAIRER. Continued home meds Assessment & Plan (01/26/2025 12:09 PM EDT): -- Lipitor JIG AND FIXTURE REPAIRER. Continued home meds Assessment & Plan (01/25/2025 12:22 PM EDT): -- Lipitor JIG AND FIXTURE REPAIRER. Continued home meds Assessment & Plan (01/24/2025 9:38 AM EDT): -- Lipitor JIG AND FIXTURE REPAIRER. Continued home meds Assessment & Plan (01/23/2025 1:07 PM EDT): -- Lipitor JIG AND FIXTURE REPAIRER. Continued home meds Assessment & Plan (01/22/2025 10:03 AM EDT): -- Lipitor JIG AND FIXTURE REPAIRER. Continued home meds Assessment & Plan (01/21/2025 12:19 PM EDT): -- Lipitor JIG AND FIXTURE REPAIRER. Continued home meds Assessment & Plan (01/20/2025 2:21 PM EDT): -- Lipitor JIG AND FIXTURE REPAIRER. Continued home meds Assessment & Plan (01/19/2025 1:36 PM EDT): -- Lipitor JIG AND FIXTURE REPAIRER. Continued home meds Assessment & Plan (01/18/2025 1:04 PM EDT): -- Lipitor JIG AND FIXTURE REPAIRER. Continued home meds Assessment & Plan (01/17/2025 1:00 PM EDT): -- Lipitor JIG AND FIXTURE REPAIRER. Continued home meds Assessment & Plan (01/16/2025 9:59 AM EDT): -- Lipitor JIG AND FIXTURE REPAIRER. Continued home meds Assessment & Plan (01/15/2025 11:35 AM EDT): -- Lipitor JIG AND FIXTURE REPAIRER. Continued home meds Assessment & Plan (01/15/2025 6:29 AM EDT): -- Lipitor JIG AND FIXTURE REPAIRER. Continued Assessment & Plan (01/15/2025 6:21 AM EDT): -- Lipitor JIG AND FIXTURE REPAIRER Assessment & Plan (01/15/2025 6:10 AM EDT): -- Lipitor JIG AND FIXTURE REPAIRER Assessment & Plan (01/12/2025 10:29 PM EDT): -- Lipitor JIG AND FIXTURE REPAIRER Hypertension associated with diabetes 09/30/2014 Overview (06/04/2024): [...] (05/20/2025 12:54 PM EDT): Well controlled. - JIG AND FIXTURE REPAIRER coreg - monitor and adjust as needed -BP stable 05/20/25 Assessment & Plan (05/19/2025 11:25 AM EDT): Well controlled. - JIG AND FIXTURE REPAIRER coreg - monitor and adjust as needed -BP stable 05/19/25 Assessment & Plan (05/18/2025 8:38 AM EDT): Well controlled. - JIG AND FIXTURE REPAIRER coreg - monitor and adjust as needed -BP stable 05/18/25 Assessment & Plan (05/17/2025 9:16 AM EDT): Well controlled. - JIG AND FIXTURE REPAIRER coreg - monitor and adjust as needed -BP stable 05/17/25 Assessment & Plan (05/16/2025 2:50 PM EDT): Well controlled. - JIG AND FIXTURE REPAIRER coreg - monitor and adjust as needed -BP stable 05/16/25 Assessment & Plan (05/15/2025 2:22 PM EDT): Well controlled. - JIG AND FIXTURE REPAIRER coreg - monitor and adjust as needed -BP stable 05/15/25 Assessment & Plan (05/14/2025 2:51 PM EDT): Well controlled. - JIG AND FIXTURE REPAIRER coreg - monitor and adjust as needed -BP stable 05/14/25 Assessment & Plan (05/13/2025 1:41 PM EDT): Well controlled. - JIG AND FIXTURE REPAIRER coreg - monitor and adjust as needed -Blood pressure 113/46 Assessment & Plan (05/12/2025 10:17 AM EDT): Well controlled. - JIG AND FIXTURE REPAIRER coreg - monitor and adjust as needed -Blood pressure 122/57 Assessment & Plan (05/11/2025 7:12 AM EDT): Well controlled. - JIG AND FIXTURE REPAIRER coreg - monitor and adjust as needed -Blood pressure 116/76 Assessment & Plan (05/10/2025 1:54 PM EDT): Well controlled. - JIG AND FIXTURE REPAIRER coreg - monitor and adjust as needed -Blood pressure 116/76 Assessment & Plan (05/09/2025 10:25 AM EDT): Well controlled. - JIG AND FIXTURE REPAIRER coreg - monitor and adjust as needed -Blood pressure 128/66 Assessment & Plan (05/08/2025 1:05 PM EDT): Well controlled. - JIG AND FIXTURE REPAIRER coreg - monitor and adjust as needed -Blood pressure 124/66 Assessment & Plan (05/07/2025 7:10 AM EDT): Well controlled. - JIG AND FIXTURE REPAIRER coreg - monitor and adjust as needed Assessment & Plan (05/06/2025 9:31 AM EDT): Well controlled. - JIG AND FIXTURE REPAIRER coreg - monitor and adjust as needed Assessment & Plan (05/05/2025 1:00 PM EDT): Well controlled. - JIG AND FIXTURE REPAIRER coreg - monitor and adjust as needed Assessment & Plan (05/05/2025 12:57 PM EDT): Well controlled. - JIG AND FIXTURE REPAIRER coreg - monitor and adjust as needed [...] Plan (01/20/2025 2:21 PM EDT): -- Coreg JIG AND FIXTURE REPAIRER. Continued -- In acceptable range. Stable. BP Readings from Last 1 Encounters: 01/20/25 109/62 Assessment & Plan (01/19/2025 1:36 PM EDT): -- Coreg JIG AND FIXTURE REPAIRER. Continued -- In acceptable range. Stable. BP Readings from Last 1 Encounters: 01/19/25 100/42 Assessment & Plan (01/18/2025 1:04 PM EDT): -- Coreg JIG AND FIXTURE REPAIRER. Continued -- In acceptable range. Stable. BP Readings from Last 1 Encounters: 01/18/25 106/41 Assessment & Plan (01/17/2025 1:00 PM EDT): -- Coreg JIG AND FIXTURE REPAIRER. Continued -- In acceptable range. Stable. BP Readings from Last 1 Encounters: 01/17/25 119/46 Assessment & Plan (01/16/2025 9:59 AM EDT): -- Coreg JIG AND FIXTURE REPAIRER. Continued -- In acceptable range. Stable. BP Readings from Last 1 Encounters: 01/16/25 144/54 Assessment & Plan (01/15/2025 11:35 AM EDT): -- Coreg JIG AND FIXTURE REPAIRER. Continued -- In acceptable range BP Readings from Last 1 Encounters: 01/15/25 125/54 Assessment & Plan (01/15/2025 6:29 AM EDT): -- Coreg JIG AND FIXTURE REPAIRER. 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 [address] Ramón Dennison MD Record, Felicia M, [employer] AGENCY PRINCIPAL 08/28/2025 10:06 AM EST - 08/28/2025 11:59 PM EST Hospital Encounter [facility] [place] [address] Vargas Wolf MD Cooney, Sean, CRNA Adkins, Braxton, MD PAD (peripheral artery disease); Critical limb ischemia of left lower extremity (HCC) Discharge Disposition: Home or Self Care 08/21/2025 Telephone [facility] [address] [place] [address] [place] [phone] Mary Lombardi MA Procedure (Angiogram Details ) 08/21/2025 Orders Only [facility] [address] [place] [address] [place] [phone] Mary Lombardi MA PAD (peripheral artery disease) (Primary Dx); Critical limb ischemia of left lower extremity (HCC) 08/19/2025 2:00 PM EST Office Visit [facility] [address] [place] [address] [place] [phone] Vargas Wolf MD PAD (peripheral artery disease) (Primary Dx) 08/05/2025 3:45 PM EDT Office Visit [facility] [address] [place] [phone] Vargas Wolf MD PAD (peripheral artery [...] IR REVAS FEM POP ART UNILAT W JIG AND FIXTURE REPAIRER 01/30/2025 IR REVAS FEM POP ART UNILAT W JIG AND FIXTURE REPAIRER 01/30/2025 Vargas Wolf MD [facility] IR CARDIAC [...] IR REVAS FEM POP ART UNILAT W JIG AND FIXTURE REPAIRER 08/28/2025 IR REVAS FEM POP ART UNILAT W JIG AND FIXTURE REPAIRER 08/28/2025 Vargas Wolf MD [facility] IR IR [...] drink = 0.6 oz pur e alcohol) [facility] Utilities Answer Date Recorded In the past [...] Date Recorded PHQ-2 Total Score 0 06/23/2025 [facility] [place] of Occupat ional Health - Occupational Stress [...] more. Never true [facility]23[facility]20[facility] IP Transportation Answer D [...] this topic Medical Devices Implanted Type Area Systems Software Developer Device Identifier Shelf Expiration Date Model / Serial / Lot Stent Omnilink Elite [id number] Otw Be Prmnt 0.035in Gw 6fr Stent-Omn ilink [facility]:VASC DEV 01/14/2026 [id number] / / [id number] Stent Omnilink Elite [id number] Otw Be Prmnt 0.035in Gw 6fr Stent-Omn ilink [employer] LAB:VASC DEV 01/14/2026 [id number] / / [id number] Mtrx Tiss 23ga Viaflow Hmn Plcnt Flw Premx Amb Temp Ndl 2cc - [id number] Implanted:Qty: 1 on 03/09/2025 by Dacia Mills DPM at [facility] Left: [facility] [employer] GRP:[employer] TECH 11/10/2028 [id number] / [id number] / Procedures Procedure Name Priority Date/Time Associated Diagnosis Comments GLUCOSE METER POC Routine 08/28/2025 3:2 1 PM EST IR ULTRASOUND GUIDED VASCULAR ACCESS Routine 08/28/2025 3:01 PM EST PAD (peripheral artery disease) IR REVAS FEM POP ART UNILAT W JIG AND FIXTURE REPAIRER Routine 08/28/2025 3:01 PM EST PAD (peripheral artery disease) IR REVAS TIB PER ART UNILAT INIT VES W JIG AND FIXTURE REPAIRER Routine 08/28/2025 3:01 PM EST PAD (peripheral [...] GLUCOSE METER POC (08/28/2025 3:21 PM EST) [facility] Glucose Meter POC 120(H) 70 - 100 mg/dL 08/28/2025 3:23 PM EST [facility] Sample Type Capillary 08/28/2025 3:23 PM EST [facility] Patient Status Non-Critical Patient 08/28/2025 3:23 PM EST [facility] Blood BLOOD SPECIMEN / Unknown 08/28/2025 3:21 PM EST 08/28/2025 3:23 PM EST us Vargas Wolf MD POINT OF CARE TEST ORDERABL ES Final Result [facility] [address] [address] * IR REVAS TIB PER ART UNILAT INIT VES W JIG AND FIXTURE REPAIRER (08/28/2025 3:01 PM EST) Anatomical Region Laterality Modality Interventional R adiology Narrative 09/28/2025 12:06 PM EST DATE OF PROCEDURE: 08/28/2025 PREOPERATIVE DIAGNOSES: RLE critical limb ischemia with rest pain POSTOPERATIVE DIAGNOSES: Same PROCEDURE PERFORMED: 1. US guided access of the left common femoral artery 2. Abdominal aortogram. Right lower extremity angiogram. Radiographic supervision and interpretation 3. JIG AND FIXTURE REPAIRER of SFA with 4 x 120 mm balloon 4. JIG AND FIXTURE REPAIRER of DAREN with 2 x 60 mm and 2.5 x 120 mm balloons Mynx closure of 6 Fr arteriotomy SURGEON: Vargas Wolf MD ANESTHESIA: General anesthesia FLUOROSCOPY: Dose: 292 mGy, Time: 19.6 min CONTRAST: 67 ml ESTIMATED BLOOD LOSS: 5 mL SPECIMENS: None COMPLICATIONS: None FINDINGS: Access site was patent but significant disease in mid and distal NURSE INFORMATICS EDUCATOR AORTA: Patent infrarenal aorta and bilateral renal [...] trunk with severe stenosis at ostium. Occluded JIG AND FIXTURE REPAIRER proximally for a few cm with reconstitution [...] significant disease in the mid and distal NURSE INFORMATICS EDUCATOR, so decision was made to access the proximal NURSE INFORMATICS EDUCATOR. Under ultrasound guidance, the L NURSE INFORMATICS EDUCATOR was accessed using a micropuncture needle. X-ray [...] sheath which was advanced to the R NURSE INFORMATICS EDUCATOR. Angiogram was obtained. A wire and catheter were advanced into the popliteal artery. Angiogram confirmed intraluminal position. JIG AND FIXTURE REPAIRER of the SFA was performed with a [...] the mid DAREN. Angiogram confirmed intraluminal position. JIG AND FIXTURE REPAIRER of the proximal DAREN was performed with a 2.5 x 120 mm balloon under fluoro. Angiogram revealed no residual flow-limiting stenosis. The wire and catheter were advanced into the distal DAREN. Angiogram confirmed intraluminal position. JIG AND FIXTURE REPAIRER of the distal DAREN was performed with a 2 x 60 mm balloon. Angiogram revealed residual stenosis. JIG AND FIXTURE REPAIRER of the distal DAREN was performed with [...] DAREN RECOMMENDATIONS: Bed rest for 3 hours. [employer] Voice recognition technology was used to complete this note, and it may contain unintended errors despite the mortgage or loan underwriter's best efforts to proofread it. Please contact me with questions. TID: [id number] us Vargas Wolf MD IMG IR ORDERABLES Final Res ult * IR REVAS FEM POP ART UNILAT W JIG AND FIXTURE REPAIRER (08/28/2025 3:01 PM EST) Anatomical Region Laterality Modality Interventional R adiology Narrative 09/28/2025 12:06 PM EST DATE OF PROCEDURE: 08/28/2025 PREOPERATIVE DIAGNOSES: RLE critical limb ischemia with rest pain POSTOPERATIVE DIAGNOSES: Same PROCEDURE PERFORMED: 1. US guided access of the left common femoral artery 2. Abdominal aortogram. Right lower extremity angiogram. Radiographic supervision and interpretation 3. JIG AND FIXTURE REPAIRER of SFA with 4 x 120 mm balloon 4. JIG AND FIXTURE REPAIRER of DAREN with 2 x 60 mm and 2.5 x 120 mm balloons Mynx closure of 6 Fr arteriotomy SURGEON: Vargas Wolf MD ANESTHESIA: General anesthesia FLUOROSCOPY: Dose: 292 mGy, Time: 19.6 min CONTRAST: 67 ml ESTIMATED BLOOD LOSS: 5 mL SPECIMENS: None COMPLICATIONS: None FINDINGS: Access site was patent but significant disease in mid and distal NURSE INFORMATICS EDUCATOR AORTA: Patent infrarenal aorta and bilateral renal [...] trunk with severe stenosis at ostium. Occluded JIG AND FIXTURE REPAIRER proximally for a few cm with reconstitution [...] significant disease in the mid and distal NURSE INFORMATICS EDUCATOR, so decision was made to access the proximal NURSE INFORMATICS EDUCATOR. Under ultrasound guidance, the L NURSE INFORMATICS EDUCATOR was accessed using a micropuncture needle. X-ray [...] sheath which was advanced to the R NURSE INFORMATICS EDUCATOR. Angiogram was obtained. A wire and catheter were advanced into the popliteal artery. Angiogram confirmed intraluminal position. JIG AND FIXTURE REPAIRER of the SFA was performed with a [...] the mid DAREN. Angiogram confirmed intraluminal position. JIG AND FIXTURE REPAIRER of the proximal DAREN was performed with a 2.5 x 120 mm balloon under fluoro. Angiogram revealed no residual flow-limiting stenosis. The wire and catheter were advanced into the distal DAREN. Angiogram confirmed intraluminal position. JIG AND FIXTURE REPAIRER of the distal DAREN was performed with a 2 x 60 mm balloon. Angiogram revealed residual stenosis. JIG AND FIXTURE REPAIRER of the distal DAREN was performed with [...] DAREN RECOMMENDATIONS: Bed rest for 3 hours. [employer] Voice recognition technology was used to complete this note, and it may contain unintended errors despite the mortgage or loan underwriter's best efforts to proofread it. Please contact me with questions. TID: [id number] us Vargas Wolf MD IMG IR ORDERABLES [...] extremity angiogram. Radiographic supervision and interpretation 3. JIG AND FIXTURE REPAIRER of SFA with 4 x 120 mm balloon 4. JIG AND FIXTURE REPAIRER of DAREN with 2 x 60 mm and 2.5 x 120 mm balloons Mynx closure of 6 Fr arteriotomy SURGEON: Vargas Wolf MD ANESTHESIA: General anesthesia FLUOROSCOPY: Dose: 292 mGy, Time: 19.6 min CONTRAST: 67 ml ESTIMATED BLOOD LOSS: 5 mL SPECIMENS: None COMPLICATIONS: None FINDINGS: Access site was patent but significant disease in mid and distal NURSE INFORMATICS EDUCATOR AORTA: Patent infrarenal aorta and bilateral renal [...] trunk with severe stenosis at ostium. Occluded JIG AND FIXTURE REPAIRER proximally for a few cm with reconstitution [...] significant disease in the mid and distal NURSE INFORMATICS EDUCATOR, so decision was made to access the proximal NURSE INFORMATICS EDUCATOR. Under ultrasound guidance, the L NURSE INFORMATICS EDUCATOR was accessed using a micropuncture needle. X-ray [...] sheath which was advanced to the R NURSE INFORMATICS EDUCATOR. Angiogram was obtained. A wire and catheter were advanced into the popliteal artery. Angiogram confirmed intraluminal position. JIG AND FIXTURE REPAIRER of the SFA was performed with a [...] the mid DAREN. Angiogram confirmed intraluminal position. JIG AND FIXTURE REPAIRER of the proximal DAREN was performed with a 2.5 x 120 mm balloon under fluoro. Angiogram revealed no residual flow-limiting stenosis. The wire and catheter were advanced into the distal DAREN. Angiogram confirmed intraluminal position. JIG AND FIXTURE REPAIRER of the distal DAREN was performed with a 2 x 60 mm balloon. Angiogram revealed residual stenosis. JIG AND FIXTURE REPAIRER of the distal DAREN was performed with [...] DAREN RECOMMENDATIONS: Bed rest for 3 hours. [employer] Voice recognition technology was used to complete this note, and it may contain unintended errors despite the mortgage or loan underwriter's best efforts to proofread it. Please contact me with questions. TID: [id number] us Vargas Wolf MD IMG IR ORDERABLES [...] extremity angiogram. Radiographic supervision and interpretation 3. JIG AND FIXTURE REPAIRER of SFA with 4 x 120 mm balloon 4. JIG AND FIXTURE REPAIRER of DAREN with 2 x 60 mm and 2.5 x 120 mm balloons Mynx closure of 6 Fr arteriotomy SURGEON: Vargas Wolf MD ANESTHESIA: General anesthesia FLUOROSCOPY: Dose: 292 mGy, Time: 19.6 min CONTRAST: 67 ml ESTIMATED BLOOD LOSS: 5 mL SPECIMENS: None COMPLICATIONS: None FINDINGS: Access site was patent but significant disease in mid and distal NURSE INFORMATICS EDUCATOR AORTA: Patent infrarenal aorta and bilateral renal [...] trunk with severe stenosis at ostium. Occluded JIG AND FIXTURE REPAIRER proximally for a few cm with reconstitution [...] significant disease in the mid and distal NURSE INFORMATICS EDUCATOR, so decision was made to access the proximal NURSE INFORMATICS EDUCATOR. Under ultrasound guidance, the L NURSE INFORMATICS EDUCATOR was accessed using a micropuncture needle. X-ray [...] sheath which was advanced to the R NURSE INFORMATICS EDUCATOR. Angiogram was obtained. A wire and catheter were advanced into the popliteal artery. Angiogram confirmed intraluminal position. JIG AND FIXTURE REPAIRER of the SFA was performed with a [...] the mid DAREN. Angiogram confirmed intraluminal position. JIG AND FIXTURE REPAIRER of the proximal DAREN was performed with a 2.5 x 120 mm balloon under fluoro. Angiogram revealed no residual flow-limiting stenosis. The wire and catheter were advanced into the distal DAREN. Angiogram confirmed intraluminal position. JIG AND FIXTURE REPAIRER of the distal DAREN was performed with a 2 x 60 mm balloon. Angiogram revealed residual stenosis. JIG AND FIXTURE REPAIRER of the distal DAREN was performed with [...] may contain unintended errors despite the mortgage or loan underwriter's best efforts to proofread it. Please contact me with questions. TID: [id number] us Vargas Wolf MD IMG IR ORDERABLES [...] extremity angiogram. Radiographic supervision and interpretation 3. JIG AND FIXTURE REPAIRER of SFA with 4 x 120 mm balloon 4. JIG AND FIXTURE REPAIRER of DAREN with 2 x 60 mm and 2.5 x 120 mm balloons Mynx closure of 6 Fr arteriotomy SURGEON: Vargas Wolf MD ANESTHESIA: General anesthesia FLUOROSCOPY: Dose: 292 mGy, Time: 19.6 min CONTRAST: 67 ml ESTIMATED BLOOD LOSS: 5 mL SPECIMENS: None COMPLICATIONS: None FINDINGS: Access site was patent but significant disease in mid and distal NURSE INFORMATICS EDUCATOR AORTA: Patent infrarenal aorta and bilateral renal [...] trunk with severe stenosis at ostium. Occluded JIG AND FIXTURE REPAIRER proximally for a few cm with reconstitution [...] significant disease in the mid and distal NURSE INFORMATICS EDUCATOR, so decision was made to access the proximal NURSE INFORMATICS EDUCATOR. Under ultrasound guidance, the L NURSE INFORMATICS EDUCATOR was accessed using a micropuncture needle. X-ray [...] sheath which was advanced to the R NURSE INFORMATICS EDUCATOR. Angiogram was obtained. A wire and catheter were advanced into the popliteal artery. Angiogram confirmed intraluminal position. JIG AND FIXTURE REPAIRER of the SFA was performed with a [...] the mid DAREN. Angiogram confirmed intraluminal position. JIG AND FIXTURE REPAIRER of the proximal DAREN was performed with a 2.5 x 120 mm balloon under fluoro. Angiogram revealed no residual flow-limiting stenosis. The wire and catheter were advanced into the distal DAREN. Angiogram confirmed intraluminal position. JIG AND FIXTURE REPAIRER of the distal DAREN was performed with a 2 x 60 mm balloon. Angiogram revealed residual stenosis. JIG AND FIXTURE REPAIRER of the distal DAREN was performed with [...] DAREN RECOMMENDATIONS: Bed rest for 3 hours. [employer] Voice recognition technology was used to complete this note, and it may contain unintended errors despite the mortgage or loan underwriter's best efforts to proofread it. Please contact me with questions. TID: [id number] us Vargas Wolf MD [facility] IR ORDERABLES Final Res ult * INTRAOP AIRWAY PLACEMENT (08/28/2025 12:57 PM EST) Narrative [facility] - 08/28/2025 12:57 PM [...] Unchanged and Atraumatic Insertion attempts: 1 Title: DATA CENTER CONSULTANT us Abdelrahman Gonsales MD [place] ANESTHESIA Final Result [facility] [address] [id number] * (ABNORMAL) BASIC METABOLIC PANEL (08/28/2025 10:49 [...] CHEMISTRY ORDERABLES Final Result Performing Organization Address City/[facility]/ZIP Co de Phone Number [facility] [address], [place] [address] * TRIGLYCERIDES (06/24/2025 5:10 AM EDT) Pathologist [facility] Triglyceride 107 <150 mg/dL 06/24/2025 8:05 AM EDT [facility] Comment: < 150 Normal 150 - 199 Borderline High 200 - 499 High >= 500 Very High Blood VENOUS BLOOD / Unknown Venipuncture / Unknown 06/24/2025 5:10 AM EDT 06/24/2025 5:32 AM EDT us Donnie Esqueda MD CHEMISTRY ORDERABLES Final Re sult Performing Organization Address City/[facility]/ZIP Co de Phone Number [facility] [address] [facility] , [place] [address] * HEMOGLOBIN A1C (05/03/2025 6:37 AM EDT) Pathologist [facility] Hgb A1C 5.3 4.2 - 5.6 % 05/05/2025 3:53 PM EDT [facility] Est. Avg Glucose 105 mg/dL 05/05/2025 3:53 PM EDT [facility] Blood VENOUS BLOOD / Unknown Venipuncture / Unknown 05/03/2025 6:37 AM EDT 05/03/2025 7:14 AM EDT Narrative [facility] - 05/05/2025 3:53 PM EDT REFERENCE RANGE: Normal: 4.0-5.6% Pre-diabetes: 5.7-6.4% Provisional diagnosis of diabetes: >6.4% Hgb F>10% and anything which shortens red cell survival, such as hemolytic anemia, or unstable hemoglobin variants such as HbSS, HbSC, or HbCC, will lower the HbA1c value associated with a given level of glycemic control. Geo Guallpa MD CHEMISTRY ORDERABLES Final Resul t Performing Organization Address City/[facility]/ZIP Co de Phone Number [facility] [address] [facility] , [place] [address] from Last 3 Months or Most Recently Relevant to Health Maintenance Additional Health Concerns Infection Onset Date Last Indicated ESBL organism Comment:ESBL urine: 05/23, 06/1205/23/2025 06/12/2025 Insurance [place] [address] [place] Advance Directives For more information, please contact: [phone] * DNR (Latest Code Status on File) [...] 3:51 PM 05/27/2025 3:19 PM Care Teams Rail Car Repairer Relationship Specialty Start Date End Date No Pcp, Per Patient PCP - General 06/04/24
--- OUTSIDE RECORDS SUMMARY | 2025-10-13 13:30 | XMS_ITS | Encounter Summary ---
Author Organization [employer] ([place], [place], [place], [place], [place]) Address [address] [place] [address] Care Team Providers Care Yard Labor Supervisor Name Role Phone Jay Howell MD Primary Care Provider [phone] Encounter Details Date Type Department Care Team (Late st Contact Info) Description 06/13/2020 Transcribed Document [facility] Family Medicine [address] [place] [phone] ProviderJessie MD [address] [place] [phone] Social History Tobacco Use Types Packs/Day Years [...] PharmD student Luis Manuel Briones PharmD, BCPS [phone] documented in this encounter Plan of Treatment Not on file documented as of this encounter Visit Diagnoses Not on filedocumented in this encounter Care Teams Yard [facility] Supervisor Relationship Specialty Start Date End Date Jay Howell MD [address] [place] [phone] PCP - General Emergency Medicine 11/12/23 documented as of this encounter
--- OUTSIDE RECORDS SUMMARY | 2025-10-13 13:30 | XMS_ITS | Encounter Summary ---
Author Organization [employer] ([place], [place], [place], [place], [place]) Address [address] [place] [address] Care Team Providers Care Health Inspector Food Name Role Phone Jya Howell MD Primary Care Provider [phone] Encounter Details Date Type Department Care Team (Late st Contact Info) Description 06/13/2020 Transcribed Document [facility] [place] Family Medicine [address] [place] [address] ProviderJessie MD [address] [place] [address] Social History Tobacco Use Types Packs/Day Years [...] On: 06/13/2020 13:24 EDT by JEFE SHELTON, Jacquard Loom Carpet Weaver-Bioanalyst Initial Assessment I Previously Documented Living Environment [...] Listed? : Yes Medical Durable Power of Leasing Representative Name : No JEFE SHELTON Jacquard Loom Carpet Weaver-Bioanalyst - 06/13/2020 13:24 EDT Initial Assessment II Sensory and Motor Deficits : Weakness Current Home Treatments and Equipment : CPAP, Walker JEFE SHELTON Jacquard Loom Carpet Weaver-Bioanalyst - 06/13/2020 13:24 EDT Discharge Needs I Anticipated Discharge To, CM : Home with home health Current Home Treatment/Equipment : Current Home Treatment/Equipment No qualifying data available. Post Acute/Home Treatments : None Documentation Status Complete : Yes JEFE SHELTON Social Worker-Bioanalyst - 06/13/2020 13:24 EDT Discharge Needs II Professional Skilled Services : Professional Skilled Services No qualifying data available. Needs Assistance with Transportation : No Discharge Options Discussed with Patient : Acute rehabilitation, Discharge transportation, DME, Home Health, Short term rehabilitation JEFE SHELTON Jacquard Loom Carpet Weaver-Bioanalyst - 06/13/2020 13:24 EDT Narrative Note Narrative Note : Patient is a low readmission risk of 38. Patient reported that she had HH in 2008 after a hip replacement. Patient stated that she has also been inpatient at [facility]. Patient reported that she is ADL independent but uses a walker when she walks around the park. Patient reported that she has transportation home. She denied having any discharge needs. Cm will continue to follow. JEFE SHELTON Jacquard Loom Carpet Weaver-Bioanalyst - 06/13/2020 13:24 EDT documented in this encounter Plan of Treatment Not on file documented as of this encounter Visit Diagnoses Not on filedocumented in this encounter Care Teams Health Inspector Food Relationship Specialty Start Date End Date Jay Howell MD [address] [place] [phone] PCP - General Emergency Medicine 11/12/23 documented as of this encounter
--- OUTSIDE RECORDS SUMMARY | 2025-10-13 13:30 | XMS_ITS | Encounter Summary ---
Author Organization [employer] ([place], [place], [place], [place], [place]) Address [address] [place] [address] Care Team Providers Care Sports Lawyer Name Role Phone Jay Howell MD Primary Care Provider [phone] Encounter Details Date Type Department Care Team (Late st Contact Info) Description 06/13/2020 Transcribed Document [facility] Family Medicine [address] [place] [address] ProviderJessie MD [address] [place] [address] Social History Tobacco Use Types Packs/Day Years [...] Legal Guardian : Responsible adult Support Person/Patient Shaker Screen Operator : Yes Support Person/Pt Rep Name : Willard Contact Password : Marvin Support Person/Pt Rep Contact Information : [phone] Want Family/Rep/Phys Notified of Admit : No [...] Obtained From : Patient Primary Language : Gabonese Preferred Communication Mode : Verbal Communication Barrier : None Veneer Press Operator Needed : No PAUL GERBER RN [...] Scale Risk Level : 25-45 Medium Risk [place] Fall Interventions : Adequate lighting, Bed [...] Source : Stated Height Entry Format : [place] Height, Feet : 5 ft(Converted to: 152 cm, 60 Inch) Height, Inches : 3 Inch(Converted to: 0 ft 3 Inch, 7.62 cm) Clinical Height : 160.02 cm Weight Source : Bed scale Weight Entry Format : [place] Clinical Dosing Weight : 75.32 kg Weight, Pounds : 165.7 lb Body Surface Area (BSA) : 1.79 m2 Body Mass Index : 29.4 kg/m2 (HI) [place] Body Weight : 52 kg PAUL GERBER [...] PAUL GERBER RN - 06/13/2020 3:09 EDT [place] Suicide Severity Rating Scale (C-SSRS) CSSRS Past [...] Any Spiritual/Cultural Needs or Requests : Yes Taoist Preference : Latter-Day Spiritual/Cult Concerns/Desires/Needs : Prayer Spiritual/Cultural Needs Comment [...] filedocumented in this encounter Care Teams Sports Lawyer Relationship Specialty Start Date End Date Jay Howell MD [address] [place] [phone] PCP - General Emergency Medicine 11/12/23 documented as of this encounter
--- OUTSIDE RECORDS SUMMARY | 2025-10-13 13:30 | XMS_ITS | Encounter Summary ---
Author Organization [employer] ([place], [place], [place], [place], [place]) Address [address] [place] [address] Care Team Providers Care Sanitary Landfill Supervisor Name Role Phone Jay Howell MD Primary Care Provider [phone] Encounter Details Date Type Department Care Team (Late st Contact Info) Description 06/13/2020 Transcribed Document [facility] [place] Family Medicine [address] [place] [address] ProviderJessie MD [address] [place], [place] [phone] Social History Tobacco Use Types Packs/Day Years [...] 06/13/2020 15:38 EDT Electronically signed by Sivan [facility] Conversion Bank Consultant Cerpola at 02/04/2023 2:14 PM CDT documented in this encounter Plan of Treatment Not on file documented as of this encounter Visit Diagnoses Not on filedocumented in this encounter Care Teams Sanitary Landfill Supervisor Relationship Specialty Start Date End Date Jay Howell MD [address] [place] [phone] PCP - General Emergency Medicine 11/12/23 documented as of this encounter
--- OUTSIDE RECORDS SUMMARY | 2025-10-13 13:30 | XMS_ITS | Encounter Summary ---
Author Organization [employer] ([place], [place], [place], [place], [place]) Address [address] [place] [address] Care Team Providers Care Dial Mounter Name Role Phone Jay Howell MD Primary Care Provider [phone] Encounter Details Date Type Department Care Team (Late st Contact Info) Description 06/13/2020 Transcribed Document [facility] [place] Family Medicine [address] [place] [address] ProviderJessie MD [address] [place], [place] [address] Social History Tobacco Use Types Packs/Day Years [...] 06/13/2020 1:41 EDT Electronically signed by Sivan [facility] Conversion Special Delivery Mail Carrier Cerner at 02/04/2023 2:14 PM CDT documented in this encounter Plan of Treatment Not on file documented as of this encounter Visit Diagnoses Not on filedocumented in this encounter Care Teams Dial Mounter Relationship Specialty Start Date End Date Jay Howell MD [address] [place] [phone] PCP - General Emergency Medicine 11/12/23 documented as of this encounter
--- OUTSIDE RECORDS SUMMARY | 2025-10-13 13:30 | XMS_ITS | Encounter Summary ---
Author Organization [employer] ([place], [place], [place], [place], [place]) Address [address] [place] [address] Care Team Providers Care Supervisor Framing Mill Name Role Phone Jay Howell MD Primary Care Provider [phone] Encounter Details Date Type Department Care Team (Late st Contact Info) Description 06/13/2020 Transcribed Document [facility] [place] Family Medicine [address] [place] [address] Jessie Yuen MD [address] [place] [address] Social History Tobacco Use Types Packs/Day Years [...] Chart was reviewed. Time spent, 55 minutes. /[id number] MD MCKAY Priest/NABOR / MCKAY / BONILLAL CC: Dr. Avtar Moeller Electronically signed by [facility] Conversion Enterprise Resource Planner Cerner at 02/04/2023 2:09 PM CDT documented in this encounter Plan of Treatment Not on file documented as of this encounter Visit Diagnoses Not on filedocumented in this encounter Care Teams Supervisor Framing Mill Relationship Specialty Start Date End Date Jay Howell MD [address] [place] [phone] PCP - General Emergency Medicine 11/12/23 documented as of this encounter
--- OUTSIDE RECORDS SUMMARY | 2025-10-13 13:31 | XMS_ITS | Encounter Summary ---
Author Organization [employer] ([place], [place], [place], [place], [place]) Address [address] [place] [address] Care Team Providers Care Supervisor Public Message Service Name Role Phone Jay Howell MD Primary Care Provider [phone] Encounter Details Date Type Department Care Team (Late st Contact Info) Description 02/13/2021 Transcribed Document [facility] [place] [address] [place] [address] ProviderJessie MD [address] [place] [address] Social History Tobacco Use Types [...] Yuen MD - 02/13/2021 12:19 PM CDT [facility] [address] SKYLER MONTOYA :1940 Visit Time:02/13/2021 What to do next Your Diagnosis Personal history of colonic polyps Unspecified abdominal pain Follow-Up Appointments Follow Up with FABY GRIMM MD When Only if needed Where: [address] [facility] [address] [place] [address]- Medications What How Much When Instructions Next [...] counseling. ??? Working with a diet and beverage specialist (dietitian) to help create a food [...] for some people. General instructions ??? Take xsrh-mui-obysugs and prescription medicines and supplements only as [...] provider. Document Revised: 09/26/2018 Document Reviewed: 09/26/2018 [employer]ium Patient Education ?? 2020 [employer] Segura's Esophagus Segura's esophagus occurs when [...] Tomatoes and foods made with tomatoes. ? [employer] or spicy foods. ? Chocolate and peppermint. ??? Do not drink alcohol. General instructions ??? Take ikbc-srq-iqzjjql and prescription medicines only as told by [...] provider. Document Revised: 01/29/2019 Document Reviewed: 01/29/2019 [employer] Patient Education ?? 2020 [employer] ESOPHAGOGASTRODUODENOSCOPY Care After Read the instructions [...] eating solid foods. General instructions ??? Take dkys-dxy-ywrwcsx and prescription medicines only as told by [...] provider. Document Revised: 01/01/2019 Document Reviewed: 01/23/2017 [employer] Patient Education ?? 2020 [employer] Gastritis, Adult Gastritis is inflammation of [...] medicines. These include steroids, antibiotics, and some cpec-lgm-nlliyrz medicines, such as aspirin or ibuprofen. ??? [...] these instructions at home: Medicines ??? Take qqgh-cln-mqdvlop and prescription medicines only as told by [...] Reviewed: 02/20/2019 Elsevier Patient Education ?? 2020 [employer]. Colonoscopy, Adult A colonoscopy is a [...] including vitamins, herbs, eye drops, creams, and fsfe-ktq-noxomue medicines. ??? Any problems you or family [...] tells you to take them. ??? Taking yvhi-vfr-cchpfus medicines, vitamins, herbs, and supplements. General instructions [...] provider. Document Revised: 04/25/2020 Document Reviewed: 04/25/2020 [employer] Patient Education ?? 2020 [employer] Colon Polyps Polyps are tissue growths [...] Reviewed: 01/18/2019 [employer] Patient Education ?? 2019 [employer]. Emergency Awareness and Preventative Care STROKE is [...] Assistance with quitting is available by contacting 4-461-GNRN-NOW. This is a free resource providing counseling, [...] was given the opportunity to ask questions. Patient/Deckhand Engineer Name: Patient/Deckhand Engineer Signature: Relationship to Patient: Clinician/Hospital Deckhand Engineer Signature: Date: documented in this encounter Plan of Treatment Not on file documented as of this encounter Visit Diagnoses Not on filedocumented in this encounter Care Teams Supervisor Public Message Service Relationship Specialty Start Date End Date Jay Howell MD [address] [place] [phone] PCP - General Emergency Medicine 11/12/23 documented as of this encounter
--- OUTSIDE RECORDS SUMMARY | 2025-10-13 13:31 | XMS_ITS | Encounter Summary ---
Author Organization [employer] ([place], [place], [place], [place], [place]) Address [address] [place] [address] Care Team Providers Care Veterinary Laboratory Technician Name Role Phone Jay Howell MD Primary Care Provider [phone] Encounter Details Date Type Department Care Team (Late st Contact Info) Description 06/14/2020 Transcribed Document [facility] [place] Family Medicine [address] [place] [address] ProviderJessie MD [address] [place] [address] [phone] Social History Tobacco Use Types Packs/Day Years [...] 06/14/2020 14:23 EDT Electronically signed by Sivan [facility] Conversion Diesel Retrofit Designer Cerner at 02/04/2023 2:18 PM CDT documented in this encounter Plan of Treatment Not on file documented as of this encounter Visit Diagnoses Not on filedocumented in this encounter Care Teams Veterinary Laboratory Technician Relationship Specialty Start Date End Date Jay Howell MD [address] [place] [phone] PCP - General Emergency Medicine 11/12/23 documented as of this encounter
--- OUTSIDE RECORDS SUMMARY | 2025-10-13 13:31 | XMS_ITS | Encounter Summary ---
Author Organization [employer] ([place], [place], [place], [place], [place]) Address [address] [place] [address] Care Team Providers Care Resistance Welder Name Role Phone Jay Howell MD Primary Care Provider [phone] Encounter Details Date Type Department Care Team (Late st Contact Info) Description 08/23/2020 Transcribed Document [facility] [address] [place] [address] ProviderJessie MD [address] [place] [address] Social History Tobacco Use Types Packs/Day Years Used Date Smoking Tobacco: Never Assessed Comments Unknown Sex and Gender Information Value Date Recorded Sex Assigned at Not on file Legal Sex Female 7:30 PM CDT Gender Identity Not on file Sexual Orientation Not on file documented as of this encounter Miscellaneous Notes * Cerner Conversion Note - Jessie ProviderMD - 08/23/2020 1:04 AM PREP MANAGER Electronically signed by [facility] Conversion Solid Tire Finisher Cerner at 02/04/2023 1:59 PM CDT documented in this encounter Plan of Treatment Not on file documented as of this encounter Visit Diagnoses Not on filedocumented in this encounter Care Teams Resistance Welder Relationship Specialty Start Date End Date Jay Howell MD [address] [place] [phone] PCP - General Emergency Medicine 11/12/23 documented as of this encounter
--- OUTSIDE RECORDS SUMMARY | 2025-10-13 13:31 | XMS_ITS | Encounter Summary ---
Author Organization [employer] ([place], [place], [place], [place], [place]) Address [address] [place] [address] Care Team Providers Care Plating Technician Name Role Phone Jay Howell MD Primary Care Provider [phone] Encounter Details Date Type Department Care Team (Late st Contact Info) Description 02/13/2021 Transcribed Document [facility] [place] Family Medicine [address] [place] [address] ProviderJessie MD [address] [place], [place] [phone] Social History Tobacco Use Types Packs/Day Years Used Date Smoking Tobacco: Never Assessed Comments Unknown Sex and Gender Information Value Date Recorded Sex Assigned at Not on file Legal Sex Female 7:30 PM CDT Gender Identity Not on file Sexual Orientation Not on file documented as of this encounter Miscellaneous Notes * Cerner Conversion Note - Jessie ProviderMD - 02/13/2021 11:43 AM CDT [facility] Endo IntraOp Summary Primary Physician: FABY GRIMM MD Finalized Date/Time: 02/13/21 12:03:45 Pt. Name: SKYLER MONTOYA.O.B./Sex: 1940 Female Med Rec #: [id number] Physician: FABY GRIMM MD Financial #: [id number] Pt. Type: O Room/Bed: END/ Admit/Disch: 02/13/21 09:44:00 - Institution: [facility] Endo - Case Attendance Entry 1 Entry 2 Entry 3 Case Attendee FABY GRIMM MD MILLER, MELISSA A RN ELVIN HUNG Role Performed Surgeon/Proceduralist, Swimming Professor, First Scrub, First First Time In 02/13/21 [...] SHANA M, STEPHANIE, Denisa Anderson Rn -ANS FAMILY DEVELOPMENT EXTENSION SPECIALIST-ANS Role Performed Anesthesiologist of FAMILY DEVELOPMENT EXTENSION SPECIALIST/Nurse Rescue Instructor Swimming Professor, First Record Time In 02/13/21 11:35:00 02/13/21 [...] RN 02/13/21 12:00:47 02/13/21 12:00:47 02/13/21 12:00:47 [facility] Endo - Case Attendance Audit 02/13/21 12:00:47 Pearl Restorer: [id number] Modifier: [id number] 1 <+> Time Out 1 <*> Procedure [...] Biopsy, Colon Biopsy, Colon Polypectomy 02/13/21 12:00:36 Pearl Restorer: [id number] Modifier: [id number] 1 <*> Procedure Colonoscopy, Esophagogastroduodenoscopy, Esophageal Biopsy, Gastric Biopsy, Colon Biopsy 2 <*> Procedure Esophageal Biopsy, Gastric Biopsy, Colon Biopsy 3 <*> Procedure Esophageal Biopsy, Gastric Biopsy, Colon Biopsy 4 <*> Procedure Esophageal Biopsy, Gastric Biopsy, Colon Biopsy 5 <*> Procedure Esophageal Biopsy, Gastric Biopsy, Colon Biopsy 6 <*> Procedure Esophageal Biopsy, Gastric Biopsy, Colon Biopsy 02/13/21 11:58:05 Pearl Restorer: [id number] Modifier: [id number] 1 <*> Procedure Colonoscopy, Esophagogastroduodenoscopy <+> 2 Procedure <+> 3 Procedure <+> 4 Procedure <+> 5 Procedure <+> 6 Procedure 02/13/21 11:48:04 Pearl Restorer: [email or web address] Modifier: [id number] 1 <+> Time In 1 <*> Procedure Colonoscopy, Esophagogastroduodenoscopy <+> 2 Time In <+> 2 Time Out <+> 3 Time In <+> 4 Time In <+> 5 Time In <+> 6 Case Attendee <+> 6 Role Performed <+> 6 Time In 02/13/21 11:38:46 Pearl Restorer: [email or web address] Modifier: [email or web address] <+> 2 Case Attendee <+> 2 Role Performed <+> 3 Case Attendee <+> 3 Role Performed <+> 4 Case Attendee <+> 4 Role Performed <+> 5 Case Attendee <+> 5 Role Performed [facility] Endo - Case times Entry 1 Patient In Room Time 02/13/21 11:35:00 Out Room Time 02/13/21 12:02:00 Anesthesia Start Time 02/13/21 11:35:00 Stop Time 02/13/21 12:02:00 Surgery / Procedure Times Start Time 02/13/21 11:43:00 Stop Time 02/13/21 12:00:00 Last Modified By: Denisa Anderson RN 02/13/21 12:00:45 [facility] Endo - Case times Audit 02/13/21 12:00:45 Pearl Restorer: [id number] Modifier: [id number] <+> 1 Out Room Time <+> 1 Stop Time <+> 1 Stop Time 02/13/21 11:45:26 Pearl Restorer: [email or web address] Modifier: [id number] <+> 1 Start Time [facility] Endo - Cautery Entry 1 ESU Identification Cautery Type Monopolar ESU ID Number [id number] ID Type Hospital Number Cautery Settings Cut Setting 5 Coag Setting 25 ESU Grounding Pad Ground Pad Type Adult Grounding Pad Site Right thigh Grounding Pad ELVIN HUNG Applied By Grounding Pad Site Warm, dry and intact Skin Condition Before Cautery Grounding Pad Site Unchanged Skin Condition After Cautery Last Modified By: Denisa Anderson RN 02/13/21 12:03:44 [facility] Endo - Cautery Audit 02/13/21 12:03:44 Pearl Restorer: [id number] Modifier: [id number] <+> 1 ID Number [facility] Endo - Cultures and Spec Summary Entry 1 Cultrures and Specimens Specimen Ordered: Yes Test(s) Routine/Path-Lab Requested/Final Disposition Last Modified By: Denisa Anderson RN 02/13/21 11:59:20 [facility] Endo - Delays Entry 1 Delay Reason Other, No Delay Duration 0 Minute(s) Last Modified By: LO HOFF RN 02/13/21 11:38:59 [facility] Endo - Departure from OR Entry 1 Integumentary Assessment Integumentary WDL Assessment WDL Transfer/Handoff Transfer to PACU Phase I Handoff Method Bedside/Face to face Post-op Transport Stretcher/Gurney Via Patient Transport LO HOFF RN, Accompanied by TRENTON GONZALEZ MOHEL, FAMILY DEVELOPMENT EXTENSION SPECIALIST-ANS Last Modified By: LO HOFF RN 02/13/21 11:39:01 [facility] Endo - Endoscopy Details Entry 1 Abdomen Procedure Soft, Non-Tender Assessment Procedure Abdomen 02/13/21 11:39:00 Assessment D/T Radio Frequency Ablation Abdominal Pressure Last Modified By: LO HOFF RN 02/13/21 11:39:05 [facility] Endo - Fire Risk Assessment [...] Modified By: LO HOFF RN 02/13/21 11:39:08 [facility] Endo - General Case Feeder Loader 1 Case Information OR Endo 01 [facility] Case Level 1 Room Verified Yes Wound Class III - Contaminated Specialty Gastroenterology Anesthesia Type General ASA Class 4 Diagnosis Preop Diagnosis dyspepsia, change in bowel habits Postop Same As Preop No Postop Diagnosis chronic gastritis, alexis's esophagus, IBS, colon polyp Last Modified By: Denisa Anderson RN 02/13/21 12:02:28 [facility] Endo - General Case Data Audit 02/13/21 12:02:28 Pearl Restorer: [email or web address] Modifier: [id number] 1 <*> Postop Same As Preop Yes 1 <*> Postop Diagnosis dyspepsia, change in bowel habits [facility] Endo - Intraoperative Assessment Entry 1 Valid History / Yes Physical in Chart Preoperative Yes Checklist Reviewed/Evaluated Patient is Latex No Sensitive Level of WDL Consciousness (WDL = Alert, Oriented to Person, Place, and Time) Last Modified By: LO HOFF RN 02/13/21 11:39:33 [facility] Endo - Intraoperative Equipment Entry 1 Equipment Intraop Monitoring Electrocardiogram Three lead placement (ECG) Electrode Placement Blood Pressure Arm, left upper Location Pulse Oximeter Hand, right Probe Site Antiembolic Devices Scopes Flexible Endoscopes Gastroscope Used Scope Serial E, P Number/Identificatio n Number Photo/Video Documentation Photo Yes Video No Last Modified By: LO HOFF RN 02/13/21 11:39:46 [facility] Endo - Patient Positioning Entry [...] Modified By: LO HOFF RN 02/13/21 11:39:48 [facility] Endo - Sign In Entry 1 Patient, Site, Yes Procedure Identified Surgical Consent Yes Confirmed Surgical Site N/A Marked by person performing procedure Airway Hypothermia Risk No Warming Measures No Taken Last Modified By: LO HOFF RN 02/13/21 11:39:54 [facility] Endo - Sign Out Entry [...] Modified By: Denisa Anderson RN 02/13/21 12:01:16 [facility] Endo - Surgical Procedures Entry [...] RN 02/13/21 12:01:06 02/13/21 12:01:06 02/13/21 12:01:06 [facility] Endo - Surgical Procedures Audit 02/13/21 12:01:06 Pearl Restorer: [id number] Modifier: [id number] <+> 1 Stop <+> 3 Stop <+> 4 Stop <+> 5 Stop <+> 6 Stop 02/13/21 12:00:33 Pearl Restorer: [id number] Modifier: [id number] <+> 6 Procedure <+> 6 Primary Procedure <+> 6 Primary Surgeon <+> 6 Specialty <+> 6 Start <+> 6 Wound Class <+> 6 Anesthesia Type <+> 6 Additional Procedure Description <+> 6 Physician States Cecum Reached 02/13/21 11:58:01 Pearl Restorer: [email or web address] Modifier: [id number] 1 <*> Procedure Colonoscopy 1 <+> Start [...] Anesthesia Type <+> 5 Additional Procedure Description [facility] Endo - Time Out Entry [...] 02/13/21 12:03 Electronically signed by Sivan [facility] Conversion Refinisher Cerner at 02/04/2023 2:05 PM CDT documented in this encounter Plan of Treatment Not on file documented as of this encounter Visit Diagnoses Not on filedocumented in this encounter Care Teams Plating Technician Relationship Specialty Start Date End Date Jay Howell MD [address] [place] [phone] PCP - General Emergency Medicine 11/12/23 documented as of this encounter
--- OUTSIDE RECORDS SUMMARY | 2025-10-13 13:31 | XMS_ITS | Encounter Summary ---
Author Organization [employer] ([place], [place], [place], [place], [place]) Address [address] [place] [address] Care Team Providers Care Machine Farmworker Name Role Phone Jay Howell MD Primary Care Provider [phone] Encounter Details Date Type Department Care Team (Late st Contact Info) Description 06/14/2020 Transcribed Document [facility] Radiology [address] [place] [address] Cheyenne Flores MD [address] [place] [phone] Social History Tobacco Use Types Packs/Day [...] 06/13/20 16:23:00 EDT, Cardiac Diet, 60 gm carbs:[id number] george, Isolation: Standard Precautions Pending Labs Ordered PT/INR Prothrombin Time Specimen Type: Blood, Anticoagulant: Yes warfarin, AM Draw collect, 06/14/20 4:00:00 EDT, Daily, Lab Collect documented in this encounter Plan of Treatment Not on file documented as of this encounter Visit Diagnoses Not on filedocumented in this encounter Care Teams Machine Farmworker Relationship Specialty Start Date End Date Jay Howell MD [address] [place] [phone] PCP - General Emergency Medicine 11/12/23 documented as of this encounter
--- OUTSIDE RECORDS SUMMARY | 2025-10-13 13:31 | XMS_ITS | Encounter Summary ---
Author Organization [employer] ([place], [place], [place], [place], [place]) Address [address] [place] [address] Care Team Providers Care Cashier Greeter Name Role Phone Jay Howell MD Primary Care Provider [phone] Encounter Details Date Type Department Care Team (Late st Contact Info) Description 08/27/2020 Transcribed Document [facility] [place] [address] [place] [address] ProviderJessie MD [address] [place] [phone] Social History Tobacco Use Types Packs/Day Years Used Date Smoking Tobacco: Never Assessed Comments Unknown Sex and Gender Information Value Date Recorded Sex Assigned at Not on file Legal Sex Female 7:30 PM CDT Gender Identity Not on file Sexual Orientation Not on file documented as of this encounter Miscellaneous Notes * Cerner Conversion Note - Jessie ProviderMD - 08/27/2020 2:00 AM CLOTH BOLT BANDER Fire Warden Details Entered On: 08/27/2020 1:36 EST Performed [...] - 08/27/2020 1:36 EST Electronically signed by Abel Finnegan Conversion Application Support Technician Cerner at 02/04/2023 2:19 PM CDT documented in this encounter Plan of Treatment Not on file documented as of this encounter Visit Diagnoses Not on filedocumented in this encounter Care Teams Cashier Greeter Relationship Specialty Start Date End Date Jay Howell MD [address] [place] [phone] PCP - General Emergency Medicine 11/12/23 documented as of this encounter
--- OUTSIDE RECORDS SUMMARY | 2025-10-13 13:31 | XMS_ITS | Encounter Summary ---
Author Organization [employer] ([place], [place], [place], [place], [place]) Address [address] [place] [address] Care Team Providers Care Yarn Sorter Name Role Phone Jay Howell MD Primary Care Provider [phone] Encounter Details Date Type Department Care Team (Late st Contact Info) Description 08/22/2020 Transcribed Document [facility] [place] Family Medicine [address] [place] [address] ProviderJessie MD [address] [place] [phone] Social History Tobacco Use Types Packs/Day Years Used Date Smoking Tobacco: Never Assessed Comments Unknown Sex and Gender Information Value Date Recorded Sex Assigned at Not on file Legal Sex Female 7:30 PM CDT Gender Identity Not on file Sexual Orientation Not on file documented as of this encounter Miscellaneous Notes * Cerner Conversion Note - Jessie ProviderMD - 08/22/2020 8:49 PM ORDER PICKER/ASSEMBLER Broset Violence Assessment Entered On: 08/22/2020 23:10 EST Performed On: 08/22/2020 23:10 EST by Noy Miguel Civil Structural Engineer Broset Violence Assessment Broset Violence Checklist of Symptoms : None Broset Violence Symptoms Subtotal : 0 Broset Violence Symptoms Indicator : Low risk (0) Noy Miguel Paramedic - 08/22/2020 23:10 EST Electronically signed by Sivan [facility] Conversion Weighter Cerner at 02/04/2023 1:55 PM CDT documented in this encounter Plan of Treatment Not on file documented as of this encounter Visit Diagnoses Not on filedocumented in this encounter Care Teams Yarn Sorter Relationship Specialty Start Date End Date Jay Howell MD [address] [place] [phone] PCP - General Emergency Medicine 11/12/23 documented as of this encounter
--- OUTSIDE RECORDS SUMMARY | 2025-10-13 13:31 | XMS_ITS | Encounter Summary ---
Author Organization [employer] ([place], [place], [place], [place], [place]) Address [address] [place] [address] Care Team Providers Care General Neurologist Name Role Phone Jay Howell MD Primary Care Provider [phone] Encounter Details Date Type Department Care Team (Late st Contact Info) Description 03/19/2021 Transcribed Document [facility] [place] Family Medicine [address] [place] [address] ProviderJessie MD [address] [place], [place] [address] Social History Tobacco Use Types Packs/Day Years [...] 03/19/2021 15:48 EDT by Krystina Giang V, Hvac Operations Technician Spring Upholsterer Final Discharge Planning Discharge Arrangements : Patient [...] Management : Home/Residential/[facility] or Self Care -01 Krystina Giang V Hvac Operations Technician [facility] [place] - 03/19/2021 15:48 EDT Final Narrative Note Final Narrative Note : DC home with spouse. Follow up with outpatient Physical therapy in home town. IM signed. Krystina Giang V Hvac Operations Technician [facility] [place] - 03/19/2021 15:48 EDT Electronically signed by Sivan [facility] Conversion Railroad Supervisor Of Engines Cerner at 02/04/2023 2:08 PM CDT documented in this encounter Plan of Treatment Not on file documented as of this encounter Visit Diagnoses Not on filedocumented in this encounter Care Teams General Neurologist Relationship Specialty Start Date End Date Jay Howell MD [address] [place] [phone] PCP - General Emergency Medicine 11/12/23 documented as of this encounter
--- OUTSIDE RECORDS SUMMARY | 2025-10-13 13:31 | XMS_ITS | Encounter Summary ---
Author Organization [employer] ([place], [place], [place], [place], [place]) Address [address] [place] [address] Care Team Providers Care Cripple Cutter Name Role Phone Jay Howell MD Primary Care Provider [phone] Encounter Details Date Type Department Care Team (Late st Contact Info) Description 03/03/2021 Transcribed Document [facility] [place] Family Medicine [address] [place] [address] ProviderJessie MD [address] [place] [address] Social History Tobacco Use Types [...] Jessie ProviderMD - 03/03/2021 5:09 PM CDT [facility] [place], [place] [id number] SKYLER MONTOYA :1940 Visit Time:03/03/2021 Your Visit [...] call you with a follow-up appointment Where: [address] [place] [address] [facility] (1) Allergies Macrodantin morphine (rash, rash) Immunizations This Visit No Immunizations Found Medications What How Much When Instructions Next Dose acetaminophen-hydrocodone (Eads 7.5 mg-325 mg oral tablet) 1 Tablet(s) Oral Every 6 Hours as needed for for pain Pickup at [place] [address] lidocaine topical (Lidoderm 5% topical film) 1 Patch(es) TransDermal Every Day Pickup at [place] [address] ALPRAZolam (Xanax 0.5 mg oral tablet) 1 [...] Information MART[address]N MONGE 712: [address] [place] [id number] [phone] The home medications listed are only as [...] that cause pain. General instructions ??? Take hzqv-xwr-naedydg and prescription medicines only as told by [...] provider. Document Revised: 02/18/2020 Document Reviewed: 02/18/2020 [employer] Patient Education ?? 2020 [employer]. Emergency Awareness and Preventative Care STROKE is [...] Assistance with quitting is available by contacting 6-637-EBHR-NOW. This is a free resource providing counseling, [...] was given the opportunity to ask questions. Patient/Underground Mine Superintendent Name: Patient/Underground Mine Superintendent Signature: Relationship to Patient: Clinician/Hospital Underground Mine Superintendent Signature: Please Provide a Telephone Number Where You Can Be Reached: Is it Permissible To Leave a Message? Date: Electronically signed by Sivan, [facility] Conversion Furnace Maintenance Cerner at 02/04/2023 1:58 PM CDT documented in this encounter Plan of Treatment Not on file documented as of this encounter Visit Diagnoses Not on filedocumented in this encounter Care Teams Cripple Cutter Relationship Specialty Start Date End Date Jay Howell MD [address] [place] [phone] PCP - General Emergency Medicine 11/12/23 documented as of this encounter
--- OUTSIDE RECORDS SUMMARY | 2025-10-13 13:31 | XMS_ITS | Encounter Summary ---
Author Organization [employer] ([place], [place], [place], [place], [place]) Address [address] [place] [address] Care Team Providers Care Asbestos Cloth Inspector Name Role Phone Jay Howell MD Primary Care Provider [phone] Encounter Details Date Type Department Care Team (Late st Contact Info) Description 03/03/2021 Transcribed Document [facility] [place] [address] [place] [address] ProviderJessie MD [address] [place], [place] [address] Social History Tobacco Use Types Packs/Day Years [...] : Low risk (0) Broset Interventions : Icard precautions for safety used Marek Sanford Rn - 03/03/2021 16:24 EDT Electronically signed by Sivan [facility] Conversion Mine Exploration Engineer Cerner at 02/04/2023 2:12 PM CDT documented in this encounter Plan of Treatment Not on file documented as of this encounter Visit Diagnoses Not on filedocumented in this encounter Care Teams Asbestos Cloth Inspector Relationship Specialty Start Date End Date Jay Howell MD [address] [place] [phone] PCP - General Emergency Medicine 11/12/23 documented as of this encounter
--- OUTSIDE RECORDS SUMMARY | 2025-10-13 13:31 | XMS_ITS | Encounter Summary ---
Author Organization [employer] ([place], [place], [place], [place], [place]) Address [address] [place] [address] Care Team Providers Care Special Warfare Boat Operator Name Role Phone Jay Howell MD Primary Care Provider [phone] Encounter Details Date Type Department Care Team (Late st Contact Info) Description 08/22/2020 Transcribed Document [facility] [place] Family Medicine [address] [place] [address] ProviderJessie MD [address] [place] [address] Social History Tobacco Use Types Packs/Day Years Used Date Smoking Tobacco: Never Assessed Comments Unknown Sex and Gender Information Value Date Recorded Sex Assigned at Not on file Legal Sex Female 7:30 PM CDT Gender Identity Not on file Sexual Orientation Not on file documented as of this encounter Miscellaneous Notes * Cerner Conversion Note - Jessie ProviderMD - 08/22/2020 8:49 PM BONE CHAR OPERATOR [place] Suicide Severity Rating Scale (C-SSRS) Entered On: 08/22/2020 23:10 EST Performed On: 08/22/2020 23:10 EST by Noy Miguel Paramedic [place] Suicide Severity Rating Scale (C-SSRS) CSSRS Past Month Wish to be : No CSSRS Past Month Suicidal Thoughts : No CSSRS Lifetime Suicide Behavior : No Suicide Severity Rating Score : 0 Suicide Severity Rating : No Additional Care Required at this time Thoughts of Harming/Killing Others : No Noy Miguel Paramedic - 08/22/2020 23:10 EST Electronically signed by Sivan, [facility] Conversion Rn Cardiac Cerner at 02/04/2023 2:06 PM CDT documented in this encounter Plan of Treatment Not on file documented as of this encounter Visit Diagnoses Not on filedocumented in this encounter Care Teams Special Warfare Boat Operator Relationship Specialty Start Date End Date Jay Howell MD [address] [place] [phone] PCP - General Emergency Medicine 11/12/23 documented as of this encounter
--- OUTSIDE RECORDS SUMMARY | 2025-10-13 13:31 | XMS_ITS | Encounter Summary ---
Author Organization [employer] ([place], [place], [place], [place], [place]) Address [address] [place] [address] Care Team Providers Care Baby Sitter Name Role Phone Jay Howell MD Primary Care Provider [phone] Encounter Details Date Type Department Care Team (Late st Contact Info) Description 08/22/2020 Transcribed Document [facility] [place] [address] [place] [address] ProviderJessie MD [address] [place], [place] [address] Social History Tobacco Use Types Packs/Day Years Used Date Smoking Tobacco: Never Assessed Comments Unknown Sex and Gender Information Value Date Recorded Sex Assigned at Not on file Legal Sex Female 7:30 PM CDT Gender Identity Not on file Sexual Orientation Not on file documented as of this encounter Miscellaneous Notes * Cerner Conversion Note - Jessie ProviderMD - 08/22/2020 8:49 PM LAUNDERER HAND ED Assessment Entered On: 08/23/2020 1:11 EST [...] on filedocumented in this encounter Care Teams Baby Sitter Relationship Specialty Start Date End Date Jay Howell MD [address] [place] [phone] PCP - General Emergency Medicine 11/12/23 documented as of this encounter
--- OUTSIDE RECORDS SUMMARY | 2025-10-13 13:31 | XMS_ITS | Encounter Summary ---
Author Organization [employer] ([place], [place], [place], [place], [place]) Address [address] [place] [address] Care Team Providers Care Associate Director Of Sales Name Role Phone Jay Howell MD Primary Care Provider [phone] Encounter Details Date Type Department Care Team (Late st Contact Info) Description 08/27/2020 Transcribed Document [facility] [place] Family Medicine [address] [place] [address] ProviderJessie MD [address] [place] [phone] Social History Tobacco Use Types Packs/Day Years Used Date Smoking Tobacco: Never Assessed Comments Unknown Sex and Gender Information Value Date Recorded Sex Assigned at Not on file Legal Sex Female 7:30 PM CDT Gender Identity Not on file Sexual Orientation Not on file documented as of this encounter Miscellaneous Notes * Cerner Conversion Note - Jessie ProviderMD - 08/27/2020 2:40 PM STATE FIRE MARSHAL WOCN Inpatient Documentation Entered On: 08/27/2020 14:42 [...] Past Medical History/Comorbidities : *Operation 08/26 RIGHT PAPER ROLL MACHINE OPERATOR access - ultrasound guided Aortogram with LEFT lower extremity run-off LEFT PT angioplasty (2.5-7r998gp Nanocross) LEFT peroneal angioplasty (2.5-1p582pz Nanocross) RIGHT PAPER ROLL MACHINE OPERATOR closure (Angioseal) LEFT leg debridement [...] Ulcer WOCN Wound Pressure Ulcer Documentation : Kltxyhjqv-Jpxdou-Mgog Abnormality: Leg Left Lower, Anterior on 08/27/2020 14:38 by Sujata Mckee Rn-Enterostomal I/W/A Present on Admission to Hospital: Yes I/W/A Type: Other: a/p debridement I/W/A Dressing Status: Moist I/W/A Dressing Activity: Assessed, Dressing changed I/W/A Wound Date of Dressing Change: :[id number]:0.906702:0:0 I/W/A Wound Bed Description: Full-thickness I/W/A Bed [...] Initial set-up application NPWT Inpatient Start Date: 1:[id number]:0.757503:0:0 NPWT Device Used: Renasys Type of Foam/Gauze Applied: Black Foam Number of Black Foam Gauze Applied: 1 Number of TRAC Pads Applied: 1 NPWT Pressure: Continuous NPWT Pressure Settin NPWT Canister Changed: Yes I/W/A Incision/Wound Healing: Initial WOCN Ostomy Documentation : No ostomy assessments reported. Sujata Mckee Rn-Enterostomal - 08/27/2020 14:40 EST Electronically signed by [facility] Conversion Drafter Electrical Cerner at 02/04/2023 1:56 PM CDT documented in this encounter Plan of Treatment Not on file documented as of this encounter Visit Diagnoses Not on filedocumented in this encounter Care Teams Associate Director Of Sales Relationship Specialty Start Date End Date Jay Howell MD [address] [place] [phone] PCP - General Emergency Medicine 11/12/23 documented as of this encounter
--- OUTSIDE RECORDS SUMMARY | 2025-10-13 13:31 | XMS_ITS | Encounter Summary ---
Author Organization [employer] ([place], [place], [place], [place], [place]) Address [address] [place] [address] Care Team Providers Care Freight Brakeman Name Role Phone Jay Howell MD Primary Care Provider [phone] Encounter Details Date Type Department Care Team (Late st Contact Info) Description 08/27/2020 Transcribed Document [facility] [place] Family Medicine [address] [place] [address] ProviderJessie MD [address] [place] [address] Social History Tobacco Use Types Packs/Day Years Used Date Smoking Tobacco: Never Assessed Comments Unknown Sex and Gender Information Value Date Recorded Sex Assigned at Not on file Legal Sex Female 7:30 PM CDT Gender Identity Not on file Sexual Orientation Not on file documented as of this encounter Miscellaneous Notes * Cerner Conversion Note - Jessie Yuen MD - 08/27/2020 8:20 AM JAVA WEB USER INTERFACE DEVELOPER Patient: SKYLER MONTOYA Age: 79 years [...] 08/[address] Verde: *Operation RIGHT BUSHWALKING GUIDE access - ultrasound guided Aortogram with LEFT lower extremity run-off LEFT PT angioplasty (2.5-0m408mx Nanocross) LEFT peroneal angioplasty (2.5-8d115pz Nanocross) RIGHT BUSHWALKING GUIDE closure (Angioseal) LEFT leg debridement 08/27/20 seen [...] Level 8.8 mg/dL 08/27/2020 03:40 MICRO: ACC: [id number] ORDER: Culture Anaerobic DATE: 08/26/2020 13:56 SOURCE: Surgical Swab SITE: Leg Lower L Reports Pre 08/27/2020 07:47 Culture in progress == ACC: [id number] ORDER: Culture Wound and Stain DATE: 08/26/2020 15:23 SOURCE: Surgical Swab SITE: Leg Lower L Reports Pre 08/27/2020 07:14 No growth GS 08/26/2020 18:13 Few White Blood Cells No organisms seen. == ACC: [id number] ORDER: Culture Fungus DATE: 08/26/2020 13:56 SOURCE: Surgical Swab SITE: Leg Lower L Reports SINDI 08/26/2020 16:09 No Fungal elements seen == ACC: [id number] ORDER: Culture Wound and Stain DATE: 08/25/2020 05:00 SOURCE: Wound SITE: Leg Lower L Reports Pre 08/26/2020 06:23 No growth GS 08/25/2020 07:26 No organisms seen. Few White Blood Cells Rare epithelial cells == ACC: [id number] ORDER: Culture Blood DATE: 08/25/2020 05:01 SOURCE: Blood SITE: Reports Pre 08/27/2020 06:01 No growth at 2 days. Pre 08/26/2020 06:01 No growth at 1 day. Pre 08/25/2020 23:02 Culture less than 24 Hrs old == ACC: [id number] ORDER: Culture Blood DATE: 08/25/2020 05:01 SOURCE: Blood SITE: Reports Pre 08/27/2020 06:01 No growth at 2 days. Pre 08/26/2020 06:01 No growth at 1 day. Pre 08/25/2020 23:02 Culture less than 24 Hrs old == Radiology Results (Last 48 hours) [id number] -- 08/25/2020 05:53 MRI Spine Lumbar WO [...] filedocumented in this encounter Care Teams Freight Brakeman Relationship Specialty Start Date End Date Jay Howell MD [address] [place] [phone] PCP - General Emergency Medicine 11/12/23 documented as of this encounter
--- OUTSIDE RECORDS SUMMARY | 2025-10-13 13:31 | XMS_ITS | Encounter Summary ---
Author Organization [employer] ([place], [place], [place], [place], [place]) Address [address] [place] [address] Care Team Providers Care Small Engine Trainer Name Role Phone Jay Howell MD Primary Care Provider [phone] Encounter Details Date Type Department Care Team (Late st Contact Info) Description 02/13/2021 Transcribed Document [facility] Family Medicine [address] [place] [address] ProviderJessie MD [address] [place], [place] [address] Social History Tobacco Use Types Packs/Day Years [...] ??? Working with a diet and nutrition representative (dietitian) to help create a food plan [...] for some people. General instructions ??? Take jrod-lgb-dlucowi and prescription medicines and supplements only as [...] provider. Document Revised: 09/26/2018 Document Reviewed: 09/26/2018 [employer] Patient Education ? 2020 [employer]. Segura's Esophagus Segura's esophagus occurs when the [...] Tomatoes and foods made with tomatoes. ? Mark or spicy foods. ? Chocolate and peppermint. ??? Do not drink alcohol. General instructions ??? Take pgkd-kic-rfnuyvs and prescription medicines only as told by [...] provider. Document Revised: 01/29/2019 Document Reviewed: 01/29/2019 [employer] Patient Education ? 2020 [employer]. ESOPHAGOGASTRODUODENOSCOPY Care After Read the instructions outlined [...] eating solid foods. General instructions ??? Take maek-iqg-xvaynsx and prescription medicines only as told by [...] provider. Document Revised: 01/01/2019 Document Reviewed: 01/23/2017 [employer] Patient Education ? 2020 [employer] Gastritis, Adult Gastritis is inflammation of [...] medicines. These include steroids, antibiotics, and some tnej-xrh-uybepsp medicines, such as aspirin or ibuprofen. ??? [...] these instructions at home: Medicines ??? Take xptp-ymw-egkyrng and prescription medicines only as told by [...] provider. Document Revised: 02/20/2019 Document Reviewed: 02/20/2019 [employer] Patient Education ? 2020 [employer] Colonoscopy, Adult A colonoscopy is a [...] including vitamins, herbs, eye drops, creams, and hrev-bfr-ziorxkv medicines. ??? Any problems you or family [...] tells you to take them. ??? Taking riaa-nok-kfboqwl medicines, vitamins, herbs, and supplements. General instructions [...] provider. Document Revised: 04/25/2020 Document Reviewed: 04/25/2020 [employer] Patient Education ? 2020 [employer] Colon Polyps Polyps are tissue growths [...] provider. Document Revised: 01/18/2019 Document Reviewed: 01/18/2019 [employer] Patient Education ? 2020 [employer]. documented in this encounter Plan of Treatment Not on file documented as of this encounter Visit Diagnoses Not on filedocumented in this encounter Care Teams Small Engine Trainer Relationship Specialty Start Date End Date Jay Howell MD [address] [place] [phone] PCP - General Emergency Medicine 11/12/23 documented as of this encounter
--- OUTSIDE RECORDS SUMMARY | 2025-10-13 13:31 | XMS_ITS | Encounter Summary ---
Author Organization [employer] ([place], [place], [place], [place], [place]) Address [address] [place] [address] Care Team Providers Care Roller Gold Leaf Name Role Phone Jay Howell MD Primary Care Provider [phone] Encounter Details Date Type Department Care Team (Late st Contact Info) Description 08/22/2020 Transcribed Document [facility] [place] Family Medicine [address] [place] [address] ProviderJessie MD [address] [place] [address] [phone] Social History Tobacco Use Types Packs/Day Years Used Date Smoking Tobacco: Never Assessed Comments Unknown Sex and Gender Information Value Date Recorded Sex Assigned at Not on file Legal Sex Female 7:30 PM CDT Gender Identity Not on file Sexual Orientation Not on file documented as of this encounter Miscellaneous Notes * Cerner Conversion Note - Jessie Yuen MD - 08/22/2020 8:49 PM BLUING OVEN TENDER ED Triage Entered On: 08/22/2020 20:57 EST [...] : 3 - Urgent Tracking Group : [facility] ED LUCINDA FOFANA RN - 08/22/2020 [...] 20:57:39 EST) Problems(Active) Apnea, sleep (SNOMED CT :562418973 ) Name of Problem: Apnea, sleep ; Recorder: JUAN LUIS GIL RN; Confirmation: Confirmed ; Classification: Medical ; Code: [id number] ; Contributor System: PowerChart ; Last Updated: 11/12/2014 10:12 EST ; Life Cycle Date: 11/12/2014 ; Life Cycle Status: Active ; Vocabulary: SNOMED CT Arthritis (SNOMED CT :5277316 ) Name of Problem: Arthritis ; Recorder: KENYON CHAMBERS RN; Confirmation: Confirmed ; Classification: Medical ; Code: [id number] ; Contributor System: PowerChart ; Last Updated: 04/10/2016 8:04 EDT ; Life Cycle Date: 08/13/2013 ; Life Cycle Status: Active ; Vocabulary: SNOMED CT Atrial fibrillation with RVR (SNOMED CT :1415337392 ) Name of Problem: Atrial fibrillation with RVR ; Recorder: SANG RICO APRN; Confirmation: Confirmed ; Classification: Medical ; Code: [id number] ; Contributor System: PowerChart ; Last Updated: 04/10/2016 8:05 EDT ; Life Cycle Date: 04/10/2016 ; Life Cycle Status: Active ; Responsible Provider: SANG RICO APRN; Vocabulary: SNOMED CT Blood clot (SNOMED CT :630667139 ) Name of Problem: Blood clot ; Recorder: KENYON CHAMBERS RN; Confirmation: Confirmed ; Classification: Patient Stated ; Code: [id number] ; Contributor System: PowerChart ; Last Updated: [...] Vocabulary: Patient Care Chest pain (SNOMED CT :87847352 ) Name of Problem: Chest pain ; Recorder: SANG RICO APRN; Confirmation: Complaint of ; Classification: Medical ; Code: 16149127 ; Contributor System: PowerChart ; Last Updated: 04/10/2016 8:05 EDT ; Life Cycle Status: Active ; Responsible Provider: SANG RICO APRN; Vocabulary: SNOMED CT Chronic anticoagulation (SNOMED CT :281104401 ) Name of Problem: Chronic anticoagulation ; Recorder: SANG RICO APRN; Confirmation: Confirmed ; Classification: Medical ; Code: 753872563 ; Contributor System: PowerChart ; Last Updated: 04/10/2016 8:05 EDT ; Life Cycle Date: 04/10/2016 ; Life Cycle Status: Active ; Responsible Provider: SANG RICO APRN; Vocabulary: SNOMED CT Clotting disorder (SNOMED CT :085011520 ) Name of Problem: Clotting disorder ; Recorder: KENYON CHAMBERS RN; Confirmation: Confirmed ; Classification: Patient Stated ; Code: 374882862 ; Contributor System: PowerChart ; Last Updated: 03/28/2014 19:29 EDT ; Life Cycle Date: 08/13/2013 ; Life Cycle Status: Active ; Vocabulary: SNOMED CT COPD (SNOMED CT :82044149 ) Name of Problem: COPD ; Recorder: KENYON CHAMBERS RN; Confirmation: Confirmed ; Classification: Medical ; Code: 45684847 ; Contributor System: HopperChart ; Last Updated: 04/10/2016 8:03 EDT ; Life Cycle Date: 08/13/2013 ; Life Cycle Status: Active ; Vocabulary: SNOMED CT Coronary artery disease (SNOMED CT :2899027770 ) Name of Problem: Coronary artery disease ; Recorder: KENYON CHAMBERS RN; Confirmation: Confirmed ; Classification: Medical ; Code: 1347985940 ; Contributor System: PowerChart ; Last Updated: 04/10/2016 8:03 EDT ; Life Cycle Date: 08/13/2013 ; Life Cycle Status: Active ; Vocabulary: SNOMED CT Diabetes mellitus (SNOMED CT :347272491 ) Name of Problem: Diabetes mellitus ; Recorder: KENYON CHAMBERS RN; Confirmation: Confirmed ; Classification: Medical ; Code: 308372645 ; Contributor System: PowerChart ; Last Updated: 04/10/2016 8:04 EDT ; Life Cycle Date: 08/13/2013 ; Life Cycle Status: Active ; Vocabulary: SNOMED CT Emphysema (SNOMED CT :086451215 ) Name of Problem: Emphysema ; Recorder: JUAN LUIS GIL RN; Confirmation: Confirmed ; Classification: Medical ; Code: 710135472 ; Contributor System: PowerChart ; Last Updated: 11/12/2014 10:11 EST ; Life Cycle Date: 11/12/2014 ; Life Cycle Status: Active ; Vocabulary: SNOMED CT GERD - Gastro-esophageal reflux disease (SNOMED CT :4735301587 ) Name of Problem: GERD - Gastro-esophageal reflux disease ; Recorder: KENYON CHAMBERS RN; Confirmation: Confirmed ; Classification: Medical ; Code: 8314265116 ; Contributor System: PowerChart ; Last Updated: [...] Patient Care High blood pressure (SNOMED CT :27796862 ) Name of Problem: High blood pressure ; Recorder: KENYON CHAMBERS RN; Confirmation: Confirmed ; Classification: Medical ; Code: 81965299 ; Contributor System: PowerChart ; Last Updated: 04/10/2016 8:03 EDT ; Life Cycle Date: 08/13/2013 ; Life Cycle Status: Active ; Vocabulary: SNOMED CT History of obstructive sleep apnea (IMO :70253825 ) Name of Problem: History of obstructive sleep apnea ; Recorder: SYSTEM, SYSTEM; Confirmation: Confirmed ; Classification: Medical ; Code: 06608672 ; Last Updated: 12/20/2018 12:01 EST ; Life Cycle Date: 12/20/2018 ; Life Cycle Status: Active ; Vocabulary: IMO Hx of pulmonary embolus (SNOMED CT :301299233 ) Name of Problem: Hx of pulmonary embolus ; Recorder: SANG RICO APRN; Confirmation: Confirmed ; Classification: Medical ; Code: 222658946 ; Contributor System: PowerChart ; Last Updated: 04/10/2016 8:05 EDT ; Life Cycle Date: 04/10/2016 ; Life Cycle Status: Active ; Responsible Provider: SANG RICO APRN; Vocabulary: SNOMED CT Hyperlipidemia (SNOMED CT :88810822 ) Name of Problem: Hyperlipidemia ; Recorder: KENYON CHAMBERS RN; Confirmation: Confirmed ; Classification: Medical ; Code: 94857982 ; Contributor System: HopperChart ; Last Updated: 04/10/2016 8:03 EDT ; Life Cycle Date: 08/13/2013 ; Life Cycle Status: Active ; Vocabulary: SNOMED CT Multiple renal cysts (SNOMED CT :590119902 ) Name of Problem: Multiple renal cysts ; Recorder: KENYON CHAMBERS RN; Confirmation: Confirmed ; Classification: Medical ; Code: 361452160 ; Contributor System: HopperChart ; Last Updated: 04/10/2016 8:04 EDT ; Life Cycle Date: 08/13/2013 ; Life Cycle Status: Active ; Vocabulary: SNOMED CT Stented coronary artery (SNOMED CT :6523925045 ) Name of Problem: Stented coronary artery ; Recorder: KENYON CHAMBERS RN; Confirmation: Confirmed ; Classification: Medical ; Code: 1763828863 ; Contributor System: HopperChart ; Last Updated: 04/10/2016 8:03 EDT ; Life Cycle Date: 08/13/2013 ; Life Cycle Status: Active ; Vocabulary: SNOMED CT UTI - Urinary tract infection (SNOMED CT :8626696647 ) Name of Problem: UTI - Urinary tract infection ; Recorder: KENYON CHAMBERS RN; Confirmation: Confirmed ; Classification: Medical ; Code: 6643304693 ; Contributor System: HopperChart ; Last Updated: 04/10/2016 8:04 EDT ; Life Cycle Date: 08/13/2013 ; Life Cycle Status: Active ; Vocabulary: SNOMED CT Diagnoses(Active) Leg pain-swelling Date: 08/22/2020 ; Diagnosis Type: Reason For Visit ; Confirmation: Complaint of ; Clinical Dx: Leg pain-swelling ; Classification: Medical ; Clinical Service: Emergency medicine ; Code: PNED ; Probability: 0 ; Diagnosis Code: [id number] ED Height and Weight Height Source : Stated Height Entry Format : [place] Height, Feet : 5 ft(Converted to: 152 cm, 60 Inch) Height, Inches : 3 Inch(Converted to: 0 ft 3 Inch, 7.62 cm) Clinical Height : 160.02 cm Weight Source, ED : Critical estimated dosing weight Weight Entry Format : [place] Weight, Pounds : 154 lb Clinical Dosing Weight : 70 kg Body Surface Area (BSA) : 1.73 m2 Body Mass Index : 27.3 kg/m2 (HI) [place] Body Weight (IBW) : 52.02 kg LUCINDA FOFANA RN - 08/22/2020 20:52 EST Electronically signed by [facility], [facility] Conversion Cold Molding Press Operator Cerner at 02/04/2023 2:09 PM CDT documented in this encounter Plan of Treatment Not on file documented as of this encounter Visit Diagnoses Not on filedocumented in this encounter Care Teams Roller Gold Leaf Relationship Specialty Start Date End Date Jay Howell MD [address] [place] [phone] PCP - General Emergency Medicine 11/12/23 documented as of this encounter
--- OUTSIDE RECORDS SUMMARY | 2025-10-13 13:31 | XMS_ITS | Encounter Summary ---
Author Organization [employer] ([place], [place], [place], [place], [place]) Address [address] [place] [address] Care Team Providers Care Instructional Media Services Technician Name Role Phone Jay Howell MD Primary Care Provider [phone] Encounter Details Date Type Department Care Team (Late st Contact Info) Description 08/27/2020 Transcribed Document [facility] [place] [address] [place] [address] ProviderJessie MD [address] [place] [phone] Social History Tobacco Use Types Packs/Day Years Used Date Smoking Tobacco: Never Assessed Comments Unknown Sex and Gender Information Value Date Recorded Sex Assigned at Not on file Legal Sex Female 7:30 PM CDT Gender Identity Not on file Sexual Orientation Not on file documented as of this encounter Miscellaneous Notes * Cerner Conversion Note - Historical ProviderMD - 08/27/2020 3:10 PM DUMPER BAILER OPERATOR Patient: SKYLER MONTOYA Age: 79 Years [...] (High) 08/27/2020 08:41 EST Electronically signed by [facility], [facility] Conversion Dairy Laboratory Technician Cerner at 02/04/2023 2:06 PM CDT documented in this encounter Plan of Treatment Not on file documented as of this encounter Visit Diagnoses Not on filedocumented in this encounter Care Teams Instructional Media Services Technician Relationship Specialty Start Date End Date Jay Howell MD [address] [place] [phone] PCP - General Emergency Medicine 11/12/23 documented as of this encounter
--- OUTSIDE RECORDS SUMMARY | 2025-10-13 13:31 | XMS_ITS | Encounter Summary ---
Author Organization [employer] ([place], [place], [place], [place], [place]) Address [address] [place] [address] Care Team Providers Care Gear Grinding Machine Operator Name Role Phone Jay Howell MD Primary Care Provider [phone] Encounter Details Date Type Department Care Team (Late st Contact Info) Description 08/27/2020 Transcribed Document [facility] [place] [address] [place] [address] ProviderJessie MD [address] [place] [address] [phone] Social History Tobacco Use Types Packs/Day Years Used Date Smoking Tobacco: Never Assessed Comments Unknown Sex and Gender Information Value Date Recorded Sex Assigned at Not on file Legal Sex Female 7:30 PM CDT Gender Identity Not on file Sexual Orientation Not on file documented as of this encounter Miscellaneous Notes * Cerner Conversion Note - Historical ProviderMD - 08/27/2020 3:14 PM PRINCIPAL PLANNER Consult Phone Call Documentation Entered On: 08/27/2020 15:23 EST Performed On: 08/27/2020 15:14 EST by JOANN DELGADILLO Phone Call for Consults Consult Phone Call/Page Attempt : First call JOANN DELGADILLO - 08/27/2020 15:23 EST documented in this encounter Plan of Treatment Not on file documented as of this encounter Visit Diagnoses Not on filedocumented in this encounter Care Teams Gear Grinding Machine Operator Relationship Specialty Start Date End Date Jay Howell MD [address] [place] [phone] PCP - General Emergency Medicine 11/12/23 documented as of this encounter
--- OUTSIDE RECORDS SUMMARY | 2025-10-13 13:31 | XMS_ITS | Encounter Summary ---
Author Organization [employer] ([place], [place], [place], [place], [place]) Address [address] [place] [address] Care Team Providers Care Turn Out Name Role Phone Jay Howell MD Primary Care Provider [phone] Encounter Details Date Type Department Care Team (Late st Contact Info) Description 08/27/2020 Transcribed Document [facility] [place] Family Medicine [address] [place] [address] ProviderJessie MD [address] [place] [address] Social History Tobacco Use Types Packs/Day Years Used Date Smoking Tobacco: Never Assessed Comments Unknown Sex and Gender Information Value Date Recorded Sex Assigned at Not on file Legal Sex Female 7:30 PM CDT Gender Identity Not on file Sexual Orientation Not on file documented as of this encounter Miscellaneous Notes * Cerner Conversion Note - Jessie Yuen MD - 08/27/2020 9:53 AM EPIC AMBULATORY ANALYSTS WOCN Inpatient Documentation Entered On: 09/01/2020 16:35 [...] Ulcer WOCN Wound Pressure Ulcer Documentation : [id number] Abnormality: Leg Left Lower, Anterior on 09/01/2020 13:00 by HOLDEN HESS RN I/W/A Present on Admission to Hospital: No I/W/A Type: Hematoma I/W/A Dressing Status: Clean, Dry, Intact I/W/A Wound Date of Dressing Change: 1:[id number]:0.039900:0:0 I/W/A Wound Bed Description: Full-thickness, Granulating I/W/A [...] 09/01/2020 16:32 EST Electronically signed by Sivan [facility] Conversion Impregnator And Drier Helper Cerner at 02/04/2023 2:18 PM CDT documented in this encounter Plan of Treatment Not on file documented as of this encounter Visit Diagnoses Not on filedocumented in this encounter Care Teams Turn Out Relationship Specialty Start Date End Date Jay Howell MD [address] [place] [phone] PCP - General Emergency Medicine 11/12/23 documented as of this encounter
--- OUTSIDE RECORDS SUMMARY | 2025-10-13 13:31 | XMS_ITS | Encounter Summary ---
Author Organization [employer] ([place], [place], [place], [place], [place]) Address [address] [place] [address] Care Team Providers Care Flat Sheet Maker Name Role Phone Jay Howell MD Primary Care Provider [phone] Encounter Details Date Type Department Care Team (Late st Contact Info) Description 06/14/2020 Transcribed Document [facility] [place] Family Medicine [address] [place] [address] ProviderJessie MD [address] [place] [address] [phone] Social History Tobacco Use Types Packs/Day Years [...] : Yes Discharge To Care Management : Home/Residential/Skilled Nursing or Self Care - JENAE COREY CSW - 06/14/2020 8:53 EDT Final Narrative Note Final Narrative Note : Pt declined services. JENAE COREY CSW - 06/14/2020 8:53 EDT documented in this encounter Plan of Treatment Not on file documented as of this encounter Visit Diagnoses Not on filedocumented in this encounter Care Teams Flat Sheet Maker Relationship Specialty Start Date End Date Jay Howell MD [address] [place] [phone] PCP - General Emergency Medicine 11/12/23 documented as of this encounter
--- OUTSIDE RECORDS SUMMARY | 2025-10-13 13:31 | XMS_ITS | Encounter Summary ---
Author Organization [facility] Address [address] [place] [address] Care Team Providers Care Director Of Critical Care Name Role Phone Jay Howell MD Primary Care Provider [phone] Encounter Details Date Type Department Care Team (Late st Contact Info) Description 01/20/[address] [facility] [address] [place] [address] Joselito Garza MD [address] [place] [address] Social History Tobacco Use Types [...] drink first t kathleen in the morning (EYE-CERTIFIED MEETING PROFESSIONAL) to steady your nerves or to get rid of a hangover? 0 01/21/2024 CAGE Questionnaire Score 0 024 Utilities Answer Date Recorded In the past 12 months has th e [employer], gas, oil, or water company threatened to [...] [facility] [address] [place] [address] 10/24/2025 2:20 PM EST Office Visit [facility] [address] [place] [address] Zaida Nichols MD [address] [facility] [address] [place] [address] documented as of this encounter Visit Diagnoses Not on filedocumented in this encounter Additional Health Concerns Assessment Noted Time A fall risk assessment has been complete d for the patient 12/20/2023 2:07 PM EST A Body Mass Index follow-up plan has been documented for the patient 01/26/2024 12:51 PM EDT documented as of this encounter Care Teams Director Of Critical Care Relationship Specialty Start Date End Date Jay Howell MD [address] [place] [address] PCP - General 03/08/21 10/06/25 documented as of this encounter
--- OUTSIDE RECORDS SUMMARY | 2025-10-13 13:31 | XMS_ITS | Encounter Summary ---
Author Organization [employer] ([place], [place], [place], [place], [place]) Address [address] [place] [address] Care Team Providers Care Marble Mechanic Helper Name Role Phone Jay Howell MD Primary Care Provider [phone] Encounter Details Date Type Department Care Team (Late st Contact Info) Description 06/14/2020 Transcribed Document [facility] [place] [address] [place] [address] ProviderJessie MD [address] [place] [address] [phone] Social History Tobacco Use Types Packs/Day Years Used Date Smoking Tobacco: Never Assessed Comments Unknown Sex and Gender Information Value Date Recorded Sex Assigned at Not on file Legal Sex Female 7:30 PM CDT Gender Identity Not on file Sexual Orientation Not on file documented as of this encounter Miscellaneous Notes * Cerner Conversion Note - Jessie ProviderMD - 06/14/2020 2:00 AM CDT Brake Repairer Bus Details Entered On: 06/14/2020 2:51 EDT Performed [...] filedocumented in this encounter Care Teams Marble Mechanic Helper Relationship Specialty Start Date End Date aJy Howell MD [address] [place] [phone] PCP - General Emergency Medicine 11/12/23 documented as of this encounter
--- OUTSIDE RECORDS SUMMARY | 2025-10-13 13:31 | XMS_ITS | Encounter Summary ---
Author Organization [employer] ([place], [place], [place], [place], [place]) Address [address] [place] [address] Care Team Providers Care City Bailiff Name Role Phone Jay Howell MD Primary Care Provider [phone] Encounter Details Date Type Department Care Team (Late st Contact Info) Description 02/13/2021 Transcribed Document [facility] [place] [address] [place] [address] ProviderJessie MD [address] [place], [place] [phone] Social History Tobacco Use Types Packs/Day Years [...] Source : Stated Height Entry Format : [place] Height, Feet : 5 ft(Converted to: 152 cm, 60 Inch) Height, Inches : 4 Inch(Converted to: 0 ft 4 Inch, 10.16 cm) Clinical Height : 162.56 cm Weight Source : Standing scale Weight Entry Format : [place] Clinical Dosing Weight : 71.64 kg Weight, Pounds : 157.6 lb Body Surface Area (BSA) : 1.77 m2 Body Mass Index : 27.1 kg/m2 (HI) [place] Body Weight : 54 kg Ludivina Tompkins [...] test? : No Ludivina Tompkins RN-PATIENT CARE [facility] NON-EXEMPT - 02/13/2021 10:47 EDT Anesthesia/Transfusion History Family History of Anesthesia Reaction : Prior transfusion reaction Type of Transfusion Reaction : Hemolytic reaction Transfusion History : Prior anesthesia without reaction Family History of Anesthesia Reaction : None Ludivina Tompkins RN-PATIENT CARE [facility] NON-EXEMPT - 02/13/2021 10:47 EDT Functional Assessment Living Situation : Home Current Home Treatments : Blood glucose monitoring, CPAP Ludivina Tompkins RN-PATIENT CARE [facility] NON-EXEMPT - 02/13/2021 10:47 EDT [place] Suicide Severity Rating Scale (C-SSRS) CSSRS Past Month Wish to be : No CSSRS Past Month Suicidal Thoughts : No CSSRS Lifetime Suicide Behavior : No Suicide Severity Rating Score : 0 Suicide Severity Rating : No Additional Care Required at this time Ludivina Tompkins RN-PATIENT CARE [facility] NON-EXEMPT - 02/13/2021 10:47 EDT Psychosocial History Chronic/Terminal Illness w/Freq Visits : No Currently in Unsafe Situation : No Ludivina Tompkins RN-PATIENT CARE [facility] NON-EXEMPT - 02/13/2021 10:47 EDT Advance Directive Patient has Advance Directive *Q : No, patient refuses Advance Directive information Ludivina Tompkins RN-PATIENT CARE [facility] NON-EXEMPT - 02/13/2021 10:47 EDT General Info Preferred Name : ilsa Support Person/Patient Veneer Puller : Yes Support Person/Pt Rep Name : Willard Contact Password : Marvin Support Person/Pt Rep Contact Information : [phone] Want Family/Rep/Phys Notified of Admit : No Emergency Contact #1 : Johnny Montoya Emergency Contact #1 Emergency Contact #1 Relationship : spouse Emergency Contact #2 : - Emergency Contact #2 Phone Number : - Emergency Contact #2 Relationship : - Primary Language : Sao Tomean Preferred Communication Mode : Verbal Communication Barrier : None Millwork Estimator Needed : No Turner, Ludivina, RN-PATIENT CARE [...] Scale Risk Level : 25-45 Medium Risk Logan Fall Interventions : Adequate lighting, Bed in [...] EDT Electronically signed by Gayle Finnegan Conversion Soft Work Wrapper Layer And Examiner Cerner at 02/04/2023 2:06 PM CDT documented in this encounter Plan of Treatment Not on file documented as of this encounter Visit Diagnoses Not on filedocumented in this encounter Care Teams City Bailiff Relationship Specialty Start Date End Date Jay Howell MD [address] [place] [phone] PCP - General Emergency Medicine 11/12/23 documented as of this encounter
--- OUTSIDE RECORDS SUMMARY | 2025-10-13 13:31 | XMS_ITS | Encounter Summary ---
Author Organization [employer] ([place], [place], [place], [place], [place]) Address [address] [place] [address] Care Team Providers Care Log Clerk Name Role Phone Jay Howell MD Primary Care Provider [phone] Encounter Details Date Type Department Care Team (Late st Contact Info) Description 08/27/2020 Transcribed Document [facility] [place] [address] [place] [address] ProviderJessie MD [address] [place] [address] [phone] Social History Tobacco Use Types Packs/Day Years Used Date Smoking Tobacco: Never Assessed Comments Unknown Sex and Gender Information Value Date Recorded Sex Assigned at Not on file Legal Sex Female 7:30 PM CDT Gender Identity Not on file Sexual Orientation Not on file documented as of this encounter Miscellaneous Notes * Cerner Conversion Note - Jessie ProviderMD - 08/27/2020 5:00 PM YARN WRAPPER Chart Check - Review Order Profile Entered On: 08/27/2020 19:43 EST Performed On: 08/27/2020 17:00 EST by JOAO ROSA RN Chart Check Powerplans Initiated/Discontinued as Appropriate : Yes All Active Orders Reviewed : Yes JOAO ROSA RN - 08/27/2020 19:43 EST Electronically signed by Sivan [facility] Conversion Master Cook Cerner at 02/04/2023 2:08 PM CDT documented in this encounter Plan of Treatment Not on file documented as of this encounter Visit Diagnoses Not on filedocumented in this encounter Care Teams Log Clerk Relationship Specialty Start Date End Date Jay Howell MD [address] [place] [phone] PCP - General Emergency Medicine 11/12/23 documented as of this encounter
--- OUTSIDE RECORDS SUMMARY | 2025-10-13 13:31 | XMS_ITS | Encounter Summary ---
Author Organization [employer] ([place], [place], [place], [place], [place]) Address [address] [place] [address] Care Team Providers Care Garment Cutter Name Role Phone Jay [place] MD Primary Care Provider [phone] Encounter Details Date Type Department Care Team (Late st Contact Info) Description 08/27/[address] [facility] [place] Family Medicine [address] [place] [address] ProviderJessie MD [address] [place] [address] [phone] Social History Tobacco Use Types Packs/Day Years Used Date Smoking Tobacco: Never Assessed Comments Unknown Sex and Gender Information Value Date Recorded Sex Assigned at Not on file Legal Sex Female 7:30 PM CDT Gender Identity Not on file Sexual Orientation Not on file documented as of this encounter Miscellaneous Notes * Cerner Conversion Note - Jessie Yuen MD - 08/27/2020 5:54 PM APPLICATION ARCHITECT Patient: SKYLER MONTOYA Age: 79 Years [...] multiple stent placements. The patient presented to [facility] ER after recent fall with hematoma required [...] KAVITHA HIDALGO MD-INF Consulting Physician - ERMA ZEHNG MD-AMALIA Consulting Physician - PRINCESS العلي MD-ANS [...] Vitamins oral tablet, 1 Tab, Oral, Daily Canyon 7.5 mg-325 mg oral tablet, 1 Tab, [...] (High) 08/27/2020 08:41 EST Electronically signed by [facility], [facility] Conversion Case Aide Cerner at 02/04/2023 2:05 PM CDT documented in this encounter Plan of Treatment Not on file documented as of this encounter Visit Diagnoses Not on filedocumented in this encounter Care Teams Garment Cutter Relationship Specialty Start Date End Date Jay [place] MD [address] [place] [phone] PCP - General Emergency Medicine 11/12/23 documented as of this encounter
--- OUTSIDE RECORDS SUMMARY | 2025-10-13 13:31 | XMS_ITS | Encounter Summary ---
Author Organization [employer] ([place], [place], [place], [place], [place]) Address [address] [place] [address] Care Team Providers Care Hospital Intern Name Role Phone Jay [place] MD Primary Care Provider [phone] Encounter Details Date Type Department Care Team (Late st Contact Info) Description 03/03/2021 Transcribed Document [facility] [place] Family Medicine [address] [place] [address] ProviderJessie MD [address] [place], [place] [phone] Social History Tobacco Use Types Packs/Day Years [...] 17:11 EDT Electronically signed by Sivan [facility] Conversion Fly Tier Cerner at 02/04/2023 2:10 PM CDT documented in this encounter Plan of Treatment Not on file documented as of this encounter Visit Diagnoses Not on filedocumented in this encounter Care Teams Hospital Intern Relationship Specialty Start Date End Date Jay [place] MD [address] [place] [phone] PCP - General Emergency Medicine 11/12/23 documented as of this encounter
--- OUTSIDE RECORDS SUMMARY | 2025-10-13 13:31 | XMS_ITS | Encounter Summary ---
Author Organization [employer] ([place], [place], [place], [place], [place]) Address [address] [place] [address] Care Team Providers Care Sound Effects Technician Name Role Phone Jay [place] MD Primary Care Provider [phone] Encounter Details Date Type Department Care Team (Late st Contact Info) Description 08/27/2020 Transcribed Document [facility] [place] Family Medicine [address] [place] [address] ProviderJessie MD [address] [place] [address] [phone] Social History Tobacco Use Types Packs/Day Years Used Date Smoking Tobacco: Never Assessed Comments Unknown Sex and Gender Information Value Date Recorded Sex Assigned at Not on file Legal Sex Female 7:30 PM CDT Gender Identity Not on file Sexual Orientation Not on file documented as of this encounter Miscellaneous Notes * Cerner Conversion Note - Historical ProviderMD - 08/27/2020 3:14 PM FRAME BUILDER Evaluation, Physical Therapy Entered On: 08/29/2020 12:09 EST Performed On: 08/29/2020 10:38 EST by ERIC OH, PT General Information, PT Therapy Diagnosis, PT : assessment for need for skilled PTx --- NONE at this time Onset of Problem, PT : 08/27/2020 EST Co-treated by, PT : Other: OTx Student General Information Comment, PT : 79 yo female adm to [facility] 08/25 with L LE Hematoma and Cellulitis [...] ERIC OH, PT - 08/29/2020 13:14 EST [place] PT Charges PT Eval Low Complexity : 1 ERIC OH, PT - 08/29/2020 13:14 EST Electronically signed by [facility], [facility] Conversion Billing Machine Operator Cerner at 02/04/2023 1:59 PM CDT documented in this encounter Plan of Treatment Not on file documented as of this encounter Visit Diagnoses Not on filedocumented in this encounter Care Teams Sound Effects Technician Relationship Specialty Start Date End Date Jay [place]ell MD [address] [place] [phone] PCP - General Emergency Medicine 11/12/23 documented as of this encounter
--- OUTSIDE RECORDS SUMMARY | 2025-10-13 13:31 | XMS_ITS | Encounter Summary ---
Author Organization [employer] (Inspect [employer] ([place], [place], [place], [place], [place]) Address [address] [place] [address] Care Team Providers Care Time Motion Analyst Name Role Phone Jay [place] MD Primary Care Provider [phone] Encounter Details Date Type Department Care Team (Late st Contact Info) Description 06/19/2020 Transcribed Document [facility] [address] [place] [address] ProviderJessie MD [address] [place] [address] Social History Tobacco Use Types Packs/Day Years [...] On: 06/19/2020 12:12 EDT by Sri Kruse, Energy Analyst Patient Resource Center Provider Status : EST [...] at ED : Other Primary Language : Indian Patient Resource Center Comment : Patient needs follow ups with PCP and Cardiology. Appointment already scheduled with Gabriella Asencio. I called and scheduled appointment with Dr. Tara Moeller and called patient with appointment. Follow Up Needed : No Sri Kruse, Energy Analyst - 06/19/2020 12:12 EDT Electronically signed by Sivan [facility] Conversion White Metal Caster Cerner at 02/04/2023 2:15 PM CDT documented in this encounter Plan of Treatment Not on file documented as of this encounter Visit Diagnoses Not on filedocumented in this encounter Care Teams Time Motion Analyst Relationship Specialty Start Date End Date Jay [place] MD [address] [place] [phone] PCP - General Emergency Medicine 11/12/23 documented as of this encounter
--- OUTSIDE RECORDS SUMMARY | 2025-10-13 13:31 | XMS_ITS | Encounter Summary ---
Author Organization [employer] ([place], [place], [place], [place], [place]) Address [address] [place] [address] Care Team Providers Care Box Toe Buffer Name Role Phone Jay [place] MD Primary Care Provider [phone] Encounter Details Date Type Department Care Team (Late st Contact Info) Description 08/27/2020 Transcribed Document [facility] [place] [address] [place] [address] ProviderJessie MD [address] [place] [address] [phone] Social History Tobacco Use Types Packs/Day Years Used Date Smoking Tobacco: Never Assessed Comments Unknown Sex and Gender Information Value Date Recorded Sex Assigned at Not on file Legal Sex Female 7:30 PM CDT Gender Identity Not on file Sexual Orientation Not on file documented as of this encounter Miscellaneous Notes * Cerner Conversion Note - Jessie ProviderMD - 08/27/2020 3:14 PM PRIVATE BRANCH EXCHANGE INSTALLER Evaluation, Occupational Therapy Entered On: 08/29/2020 13:30 [...] BOCANEGRA STUDENTOCCUPATIONAL THERAPIST - 08/29/2020 13:40 EST Long-Term Goals, OT Grooming LTG Grid Goal #1 [...] BOCANEGRA STUDENT-OCCUPATIONAL THERAPIST - 08/29/2020 13:40 EST [place] OT Charges OT Eval Moderate Complexity : 1 ANAY BOCANEGRA STUDENT-OCCUPATIONAL THERAPIST - 08/29/2020 13:19 EST documented in this encounter Plan of Treatment Not on file documented as of this encounter Visit Diagnoses Not on filedocumented in this encounter Care Teams Box Toe Buffer Relationship Specialty Start Date End Date Jay [place]ell MD [address] [place] [phone] PCP - General Emergency Medicine 11/12/23 documented as of this encounter
--- OUTSIDE RECORDS SUMMARY | 2025-10-13 13:31 | XMS_ITS | Encounter Summary ---
Author Organization [employer] ([place], [place], [place], [place], [place]) Address [address] [place] [address] Care Team Providers Care Title I Math Tutor Name Role Phone Jay [place] MD Primary Care Provider [phone] Encounter Details Date Type Department Care Team (Late st Contact Info) Description 03/03/2021 Transcribed Document [facility] [place] [address] [place] [address] ProviderJessie MD [address] [place], [place] [phone] Social History Tobacco Use Types Packs/Day Years Used Date Smoking Tobacco: Never Assessed Comments Unknown Sex and Gender Information Value Date Recorded Sex Assigned at Not on file Legal Sex Female 7:30 PM CDT Gender Identity Not on file Sexual Orientation Not on file documented as of this encounter Miscellaneous Notes * Cerner Conversion Note - Jessie ProviderMD - 03/03/2021 3:59 PM CDT [place] Suicide Severity Rating Scale (C-SSRS) Entered On: 03/03/2021 16:25 EDT Performed On: 03/03/2021 16:24 EDT by Marek Sanford Rn [place] Suicide Severity Rating Scale (C-SSRS) CSSRS Past Month Wish to be : No CSSRS Past Month Suicidal Thoughts : No CSSRS Lifetime Suicide Behavior : No Suicide Severity Rating Score : 0 Suicide Severity Rating : No Additional Care Required at this time Marek Sanford Rn - 03/03/2021 16:24 EDT Electronically signed by Sivan [facility] Conversion Cosmetic Sales Consultant Cerner at 02/04/2023 2:10 PM CDT documented in this encounter Plan of Treatment Not on file documented as of this encounter Visit Diagnoses Not on filedocumented in this encounter Care Teams Title I Math Tutor Relationship Specialty Start Date End Date Jay [place]ell MD [address] [place] [phone] PCP - General Emergency Medicine 11/12/23 documented as of this encounter
--- OUTSIDE RECORDS SUMMARY | 2025-10-13 13:31 | XMS_ITS | Encounter Summary ---
Author Organization [employer] ([place], [place], [place], [place], [place]) Address [address] [place] [address] Care Team Providers Care Digital Print Operator Name Role Phone Jay [place] MD Primary Care Provider [phone] Encounter Details Date Type Department Care Team (Late st Contact Info) Description 08/27/2020 Transcribed Document [facility] Medicine [address] [place] [address] ProviderJessie MD [address] [place] [address] [phone] Social History Tobacco Use Types Packs/Day Years Used Date Smoking Tobacco: Never Assessed Comments Unknown Sex and Gender Information Value Date Recorded Sex Assigned at Not on file Legal Sex Female 7:30 PM CDT Gender Identity Not on file Sexual Orientation Not on file documented as of this encounter Miscellaneous Notes * Cerner Conversion Note - Jessie Yuen MD - 08/27/2020 3:10 PM ETIOLOGY TEACHER On Going Discharge Planning Entered On: 08/27/2020 15:14 EST Performed On: 08/27/2020 15:10 EST by KAVITA PELLETIER RN-Fabricating Machine OperatorSurgical Assistant Certified Progress Note Discharge Arrangements : Patient Post-Acute [...] Meeting Medical Necessity : Yes KAVITA PELLETIER RN-Fabricating Machine Operator - 08/27/2020 15:10 EST Narrative Progress Note [...] past after her SIMONA and went to [facility] prior to home with HH. She is agreeable to look at list of NUCLEAR TECHNOLOGIST to make an informed decision based on quality and resource use information. Cx's are pending to determine need for IV abx at home. Likely dc in a few days. CM will continue to follow. KAVITA PELLETIER RN-Fabricating Machine Operator - 08/27/2020 15:10 EST Electronically signed by Sivan [facility] Conversion Desk Pens Assembler Cerner at 02/04/2023 2:13 PM CDT documented in this encounter Plan of Treatment Not on file documented as of this encounter Visit Diagnoses Not on filedocumented in this encounter Care Teams Digital Print Operator Relationship Specialty Start Date End Date Jay Howell MD [address] [place] [phone] PCP - General Emergency Medicine 11/12/23 documented as of this encounter
--- OUTSIDE RECORDS SUMMARY | 2025-10-13 13:31 | XMS_ITS | Encounter Summary ---
Author Organization [employer] ([place], [place], [place], [place], [place]) Address [address] [place] [address] Care Team Providers Care Forest Management Professor Name Role Phone Jay Howell MD Primary Care Provider [phone] Encounter Details Date Type Department Care Team (Late st Contact Info) Description 03/19/2021 Transcribed Document [facility] [address] [place] [address] ProviderJessie MD [address] [place], [place] 559791 Social History Tobacco Use Types Packs/Day Years [...] 2. 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 3. Extensive vascular calcification. 4. Severe centrilobular emphysema. 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 [...] 03/19/2021 06:06 EDT Electronically signed by Sivan, [facility] Conversion Activities Therapist Cerner at 02/04/2023 2:09 PM CDT documented in this encounter Plan of Treatment Not on file documented as of this encounter Visit Diagnoses Not on filedocumented in this encounter Care Teams Forest Management Professor Relationship Specialty Start Date End Date Jay Howell MD [address] [place] [phone] PCP - General Emergency Medicine 11/12/23 documented as of this encounter
--- OUTSIDE RECORDS SUMMARY | 2025-10-13 13:31 | XMS_ITS | Encounter Summary ---
Author Organization [employer] ([place], [place], [place], [place], [place]) Address [address] [place] [address] Care Team Providers Care Morgue Keeper Name Role Phone Jay [place] MD Primary Care Provider [phone] Encounter Details Date Type Department Care Team (Late st Contact Info) Description 08/22/2020 Transcribed Document [facility] [address] [place] [address] ProviderJessie MD [address] [place] [address] [phone] Social History Tobacco Use Types Packs/Day Years Used Date Smoking Tobacco: Never Assessed Comments Unknown Sex and Gender Information Value Date Recorded Sex Assigned at Not on file Legal Sex Female 7:30 PM CDT Gender Identity Not on file Sexual Orientation Not on file documented as of this encounter Miscellaneous Notes * Cerner Conversion Note - Jessie Yuen MD - 08/22/2020 10:50 PM BEAN PICKER Patient: SKYLER MONTOYA Age: 79 years Sex: Female : 1940 Associated Diagnoses: Abscess of left leg Author: LO HALE MD-EMR Basic Information Additional information: Chief Complaint from Nursing Triage Note : Chief Complaint 08/22/2020 20:52 EST Chief Complaint c/o LLE pain/ swelling. felll last week[facility]. 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 femur repair. Appendectomy ([id number]). uterine suspension. Hysterectomy ([id number]). back surgury. Cholecystectomy ([id number]). Hip replacement ([id number]). cataract surgury.. Family history: Cardiomyopathy Child Stroke [...] EST Height Source Stated Height Entry Format Payne Height/Length, GIBRALTARIAN (ft) 5 ft Height/Length GIBRALT[place]IAN 3 Inch CLINICALHEIGHT 160.02 cm Herrick Body Weight 52.02 kg Weight Source, ED Critical estimated dosing weight Weight Entry Format Payne Weight Northern Irish lb 154 lb CLINICALWEIGHT 70 kg Body [...] % 33.0 % Lymph # 2.33 x10(3)/uL Morris % 10.1 % HI Morris # 0.71 K/uL Eos % 2.1 % Eos # 0.15 x10(3)/uL Baso % 0.4 % Baso # 0.03 x10(3)/uL Slide Review No IG# 0.04 x10(3)/uL IG% 0.60 % . Radiology results: Left tib/fib: no fx or dl Left ankle: no fx or dl. Banner [id number] was reviewed. Last entry 07/30/20 for norco [...] Medical Plan Condition: Improved, Stable. Prescriptions: Prescription Site Inspector Pharmacy: [facility] 7.5 mg-325 mg oral tablet (Prescribe): 1 Tab, Oral, Q6H, for 3 Day(s), PRN: as needed for pain, 12 Tab, 0 Refill(s) clindamycin 300 mg oral capsule (Prescribe): 1 Cap, Oral, QID, for 7 Day(s), 28 Cap, 0 Refill(s), Prescription Site Inspector Pharmacy: Bactroban 2% topical ointment (Prescribe): 1 [...] on filedocumented in this encounter Care Teams Morgue Keeper Relationship Specialty Start Date End Date Jay [place]ell MD [address] [place] [phone] PCP - General Emergency Medicine 11/12/23 documented as of this encounter
--- OUTSIDE RECORDS SUMMARY | 2025-10-13 13:31 | XMS_ITS | Encounter Summary ---
Author Organization [employer] ([place], [place], [place], [place], [place]) Address [address] [place] [address] Care Team Providers Care Occupational Safety Specialist Name Role Phone Jay Howell MD Primary Care Provider [phone] Encounter Details Date Type Department Care Team (Late st Contact Info) Description 06/19/2020 Transcribed Document [facility] Medicine [address] [place] [address] ProviderJessie MD [address] [place], [place] [phone] Social History Tobacco Use Types Packs/Day Years [...] provider. This is important. Medicines ??? Take fjor-uwf-rmetnic and prescription medicines only as told by [...] 10/03/2006 Document Revised: 06/13/2019 Document Reviewed: 06/13/2019 [employer] Patient Education ? 2020 [employer]. documented in this encounter Plan of Treatment Not on file documented as of this encounter Visit Diagnoses Not on filedocumented in this encounter Care Teams Occupational Safety Specialist Relationship Specialty Start Date End Date Jay [place] MD [address] [place] [phone] PCP - General Emergency Medicine 11/12/23 documented as of this encounter
--- OUTSIDE RECORDS SUMMARY | 2025-10-13 13:31 | XMS_ITS | Encounter Summary ---
Author Organization [employer] ([place], [place], [place], [place], [place]) Address [address] [place] [address] Care Team Providers Care Buffet Manager Name Role Phone Jay [place] MD Primary Care Provider [phone] Encounter Details Date Type Department Care Team (Late st Contact Info) Description 03/04/2021 Transcribed Document [facility] [place] Family Medicine [address] [place] [address] ProviderJessie MD [address] [place], [place] [...] on filedocumented in this encounter Care Teams Buffet Manager Relationship Specialty Start Date End Date Jay [place]ell MD [address] [place] [phone] PCP - General Emergency Medicine 11/12/23 documented as of this encounter
--- OUTSIDE RECORDS SUMMARY | 2025-10-13 13:31 | XMS_ITS | Encounter Summary ---
Author Organization [employer] ([place], [place], [place], [place], [place]) Address [address] [place] [address] Care Team Providers Care Coke Loader Name Role Phone Jay Howell MD Primary Care Provider [phone] Encounter Details Date Type Department Care Team (Late st Contact Info) Description 03/03/2021 Transcribed Document [facility] [place] [address] [place] [address] ProviderJessie MD [address] [place] [address] [phone] Social History Tobacco Use Types Packs/Day Years [...] 03/03/2021 5:06 PM CDT Electronically signed by [facility] Conversion Count Room Clerk Cerner at 02/04/2023 2:08 PM CDT documented in this encounter Plan of Treatment Not on file documented as of this encounter Visit Diagnoses Not on filedocumented in this encounter Care Teams Coke Loader Relationship Specialty Start Date End Date Jay [place] MD [address] [place] [phone] PCP - General Emergency Medicine 11/12/23 documented as of this encounter
--- OUTSIDE RECORDS SUMMARY | 2025-10-13 13:31 | XMS_ITS | Encounter Summary ---
Author Organization [employer] ([place], [place], [place], [place], [place]) Address [address] [place] [address] Care Team Providers Care Ball Ender Name Role Phone Jay [place] MD Primary Care Provider [phone] Encounter Details Date Type Department Care Team (Late st Contact Info) Description 02/13/2021 Transcribed Document [facility] [place] Medicine [address] [place] [address] ProviderJessie MD [address] [place], [place] 595201 Social History Tobacco Use Types Packs/Day Years [...] 02/13/21 11:50:00 (02/13/21 12:00:33) Electronically signed by Abel Finnegan Conversion Cad Application Support Specialist Cerner at 02/04/2023 2:14 PM CDT documented in this encounter Plan of Treatment Not on file documented as of this encounter Visit Diagnoses Not on filedocumented in this encounter Care Teams Ball Ender Relationship Specialty Start Date End Date Jay [place] MD [address] [place] [phone] PCP - General Emergency Medicine 11/12/23 documented as of this encounter
--- OUTSIDE RECORDS SUMMARY | 2025-10-13 13:31 | XMS_ITS | Encounter Summary ---
Author Organization [employer] ([place], [place], [place], [place], [place]) Address [address] [place] [address] Care Team Providers Care Director Of Physical Education Name Role Phone Jay [place] MD Primary Care Provider [phone] Encounter Details Date Type Department Care Team (Late st Contact Info) Description 08/23/[address] [facility] [place] Family Medicine [address] [place] [address] ProviderJessie MD [address] [place] [address] Social History Tobacco Use Types [...] Jessie Yuen MD - 08/23/2020 1:05 AM DIRECTOR OF NURSES REGISTRY [facility] [place] [address] SKYLER MONTOYA :1940 Visit Time:08/22/2020 Your Visit [...] [place] Where: [address] [place], [place] [phone] (1) Allergies Macrodantin morphine (rash, rash) nitrofurantoin (blisters, blisters) Immunizations This Visit No Immunizations Found Medications What How Much When Instructions Next Dose acetaminophen-hydrocodone (Jessup 7.5 mg-325 mg oral tablet) 1 Tablet(s) [...] range between ( 0.0 and 7.0 ) Cook #: 0.71 K/uL -- Normal range between ( 0.16 and 1.00 ) Eos #: 0.15 x10(3)/uL -- Normal range between ( 0.00 and 0.80 ) Cook %: 10.1 % -- Normal range between [...] these instructions at home: Medicines ??? Take nptu-yea-pizltyb and prescription medicines only as told by [...] and water are not available, use hand contract engineer. ??? Change your dressing and packing as [...] 12/25/2012 Document Revised: 09/03/2019 Document Reviewed: 09/03/2019 [employer] Patient Education ?? 2020 [employer]. Skin Abscess A skin abscess is an [...] these instructions at home: Medicines ??? Take qnrq-ujj-iqjoxjl and prescription medicines only as told by [...] and water are not available, use hand contract engineer. ??? Check your abscess every day for [...] 07/13/2006 Document Revised: 01/24/2020 Document Reviewed: 11/16/2018 [employer] Patient Education ?? 2020 [employer]Tags. Emergency Awareness and Preventative Care STROKE is [...] Assistance with quitting is available by contacting 4-554-WLBY-NOW. This is a free resource providing counseling, [...] was given the opportunity to ask questions. Patient/Dictating Machine Transcriber Name: Patient/Dictating Machine Transcriber Signature: Relationship to Patient: Clinician/Hospital Dictating Machine Transcriber Signature: Please Provide a Telephone Number Where You Can Be Reached: Is it Permissible To Leave a Message? Date: Electronically signed by Gayle Finnegan Conversion [employer] Workflow Consultant Cerner at 02/04/2023 1:56 PM CDT documented in this encounter Plan of Treatment Not on file documented as of this encounter Visit Diagnoses Not on filedocumented in this encounter Care Teams Director Of Physical Education Relationship Specialty Start Date End Date Jay [place] MD [address] [place] [phone] PCP - General Emergency Medicine 11/12/23 documented as of this encounter
--- OUTSIDE RECORDS SUMMARY | 2025-10-13 13:31 | XMS_ITS | Encounter Summary ---
Author Organization [employer] ([place], [place], [place], [place], [place]) Address [address] [place] [address] Care Team Providers Care Scrap Materials Buyer Name Role Phone Jay Howell MD Primary Care Provider [phone] Encounter Details Date Type Department Care Team (Late st Contact Info) Description 02/13/2021 Transcribed Document [facility] [place] Medicine [address] [place] [address] ProviderJessie MD [address] [place], [place] [address]881 Social History Tobacco Use Types Packs/Day Years Used Date Smoking Tobacco: Never Assessed Comments Unknown Sex and Gender Information Value Date Recorded Sex Assigned at Not on file Legal Sex Female 7:30 PM CDT Gender Identity Not on file Sexual Orientation Not on file documented as of this encounter Miscellaneous Notes * Cerner Conversion Note - Jessie ProviderMD - 02/13/2021 11:43 AM CDT [facility] Endo PACU Summary Primary Physician: FABY GRIMM MD Finalized Date/Time: 02/13/21 12:32:03 Pt. Name: SKYLER MONTOYA.O.B./Sex: 1940 Female Med Rec #: [id number] Physician: FABY GRIMM MD Financial #: [id number] Pt. Type: O Room/Bed: END/ Admit/Disch: 02/13/21 09:44:00 - Institution: [facility] Endo PACU Case Times Entry 1 In [...] filedocumented in this encounter Care Teams Scrap Materials Buyer Relationship Specialty Start Date End Date Jay Howell MD [address] [place] [phone] PCP - General Emergency Medicine 11/12/23 documented as of this encounter
--- OUTSIDE RECORDS SUMMARY | 2025-10-13 13:31 | XMS_ITS | Encounter Summary ---
Author Organization [employer] ([place], [place], [place], [place], [place]) Address [address] [place] [address] Care Team Providers Care Flotation Tender Name Role Phone Jay Howell MD Primary Care Provider [phone] Encounter Details Date Type Department Care Team (Late st Contact Info) Description 08/22/2020 Transcribed Document [facility] [place] Family Medicine [address] [place] [address] ProviderJessie MD [address] [place] [phone] Social History Tobacco Use Types Packs/Day Years Used Date Smoking Tobacco: Never Assessed Comments Unknown Sex and Gender Information Value Date Recorded Sex Assigned at Not on file Legal Sex Female 7:30 PM CDT Gender Identity Not on file Sexual Orientation Not on file documented as of this encounter Miscellaneous Notes * Cerner Conversion Note - Jessie ProviderMD - 08/22/2020 10:42 PM FINANCE ADMIN Pain Assessment Entered On: 08/23/2020 1:08 EST [...] on filedocumented in this encounter Care Teams Flotation Tender Relationship Specialty Start Date End Date Jay Howell MD [address] [place] [phone] PCP - General Emergency Medicine 11/12/23 documented as of this encounter
--- OUTSIDE RECORDS SUMMARY | 2025-10-13 13:31 | XMS_ITS | Encounter Summary ---
Author Organization [employer] ([place], [place], [place], [place], [place]) Address [address] [place] [address] Care Team Providers Care Wrecker Operator Name Role Phone Jya Howell MD Primary Care Provider [phone] Encounter Details Date Type Department Care Team (Late st Contact Info) Description 06/14/2020 Transcribed Document [facility] [place] Family Medicine [address] [place] [address] ProviderJessie MD [address] [place] [address] Social History Tobacco Use Types [...] Yuen MD - 06/14/2020 2:41 PM CDT [facility] [place] [address] SKYLER MONTOYA :1940 Visit Time:06/13/2020 Your Visit Summary Your Care Team Admitting Physician - MARIA ELENA DAVALOS MD-[facility] Attending Physician - MARIA ELENA DAVALOS MD-[facility] Primary Care Physician - TARA CHEN [...] provider. This is important. Medicines ??? Take crjx-ozc-sjcnmyg and prescription medicines only as told by [...] 10/03/2006 Document Revised: 06/13/2019 Document Reviewed: 06/13/2019 [employer] Patient Education ?? 2020 [employer] Emergency Awareness and Preventative Care STROKE [...] Assistance with quitting is available by contacting 1-042-CICX-NOW. This is a free resource providing counseling, [...] range between ( 0.0 and 7.0 ) [place] #: 0.61 K/uL -- Normal range between ( 0.16 and 1.00 ) [place] #: 0.12 x10(3)/uL -- Normal range between ( 0.00 and 0.80 ) [place] %: 10.6 % -- Normal range between [...] was given the opportunity to ask questions. Patient/Etl Lead Name: Patient/Etl Lead Signature: Relationship to Patient: Clinician/Hospital Etl Lead Signature: Date: Electronically signed by Gayle Finnegan Conversion Automotive Diagnostic Technician Cerner at 02/04/2023 2:05 PM CDT documented in this encounter Plan of Treatment Not on file documented as of this encounter Visit Diagnoses Not on filedocumented in this encounter Care Teams Wrecker Operator Relationship Specialty Start Date End Date Jay Howell MD [address] [place] [phone] PCP - General Emergency Medicine 11/12/23 documented as of this encounter
--- OUTSIDE RECORDS SUMMARY | 2025-10-13 13:31 | XMS_ITS | Encounter Summary ---
Author Organization [employer] ([place], [place], [place], [place], [place]) Address [address] [place] [address] Care Team Providers Care Passenger Car Cleaning Supervisor Name Role Phone Jay Howell MD Primary Care Provider [phone] Encounter Details Date Type Department Care Team (Late st Contact Info) Description 03/03/2021 Transcribed Document [facility] [place] [place] [address] [place] [address] ProviderJessie MD [address] [place], [place] [address]881 Social History Tobacco Use Types Packs/Day Years [...] filedocumented in this encounter Care Teams Passenger Car Cleaning Supervisor Relationship Specialty Start Date End Date Jay Howell MD [address] [place] [phone] PCP - General Emergency Medicine 11/12/23 documented as of this encounter
--- OUTSIDE RECORDS SUMMARY | 2025-10-13 13:31 | XMS_ITS | Clinical Summary ---
Author Organization [employer] [facility] Address [address] [place] [address] Care Team Providers Care Corrugator Name Role Phone Jay Howell MD Primary Care Provider [phone] Allergies Active Allergy Reactions Criticality Noted Date Comments Morphine And Codeine Other (See Comments),Unknown - Low Severity,Unknown (See Comments) Low 2014 Listed per [facility] MAR. 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 Patient was sent to [facility] radiology department for CT scan today. [...] new referral to a cardiovascular surgeon at [facility]. She reports she has seen Dr. Mickey Alcantara in the past. Coronary artery disease invo lving coronary bypass graft of [place] heart without angina pectoris 04/28/2023 Assessment & Plan (09/30/2023 4:12 PM EST): She is on Statin, BB,CCB, ARB, ASA, Ranexa, and Warfarin. Continue current medication. Assessment & Plan (05/02/2023 5:03 PM EDT): She has a known history of coronary artery disease. She has denied any chest pain. Her last heart catheterization was November 25, 2022 at [facility] [place] showing: -last [facility] 11/25/2022- A. 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
--- OUTSIDE RECORDS SUMMARY | 2025-10-13 13:31 | XMS_ITS | Encounter Summary ---
Author Organization [employer] ([place], [place], [place], [place], [place]) Address [address] [place] [address] Care Team Providers Care Field Radio Technician Name Role Phone Jay Howell MD Primary Care Provider [phone] Encounter Details Date Type Department Care Team (Late st Contact Info) Description 10/13/2020 Transcribed Document [facility] Family Medicine [address] [place] [address] ProviderJessie MD [address] [place] [phone] Social History Tobacco Use Types Packs/Day Years Used Date Smoking Tobacco: Never Assessed Comments Unknown Sex and Gender Information Value Date Recorded Sex Assigned at Not on file Legal Sex Female 7:30 PM CDT Gender Identity Not on file Sexual Orientation Not on file documented as of this encounter Miscellaneous Notes * Cerner Conversion Note - Jessie Yuen MD - 10/13/2020 6:59 PM NET LEAD DEVELOPER Patient: SKYLER MONTOYA Age: 79 Years [...] results RTC prn Electronically signed by Sivan [facility] Conversion Barrel Rifler Button Cerner at 02/04/2023 2:05 PM CDT documented in this encounter Plan of Treatment Not on file documented as of this encounter Visit Diagnoses Not on filedocumented in this encounter Care Teams Field Radio Technician Relationship Specialty Start Date End Date Jay Howell MD [address] [place] [phone] PCP - General Emergency Medicine 11/12/23 documented as of this encounter
--- OUTSIDE RECORDS SUMMARY | 2025-10-13 13:31 | XMS_ITS | Encounter Summary ---
Author Organization [employer] ([place], [place], [place], [place], [place]) Address [address] [place] [address] Care Team Providers Care Grocery Team Member Name Role Phone Jay Howell MD Primary Care Provider [phone] Encounter Details Date Type Department Care Team (Late st Contact Info) Description 03/03/2021 Transcribed Document [facility] [place] [address] [place] [address] ProviderJessie MD [address] [place] [phone] Social History Tobacco Use Types Packs/Day Years [...] CHARLEE - EVA WESLEY RN PCI w/ [place] stent to D1 Coronary artery bypass graft (313754832) in 1992 at 52 Years. femur repair. Appendectomy (960421840). uterine suspension. Hysterectomy (115005965). back surgury. Cholecystectomy (65841762). Hip replacement ([id number]). cataract surgury.. Family history: Cardiomyopathy Child Stroke [...] EDT Height Source Stated Height Entry Format [place] Height/Length, MOZAMBICAN (ft) 5 ft Height/Length MOZAMB[place] 3 Inch CLINICALHEIGHT 160.02 cm [place] Body Weight 52.02 kg Weight Source, ED Critical estimated dosing weight Weight Entry Format [place] Weight [place] lb 154 lb CLINICALWEIGHT 70 kg Body [...] Radiology results: Radiology Results (Last 48 hours) [id number] -- 03/03/2021 15:59 CR Hip Uni Comp [...] 17:04 EDT, Discharge to: Home. Prescriptions: Prescription Replenishment Buyer Pharmacy: [facility] 7.5 mg-325 mg oral tablet (Prescribe): 1 [...] filedocumented in this encounter Care Teams Grocery Team Member Relationship Specialty Start Date End Date Jay Howell MD [address] [place] [phone] PCP - General Emergency Medicine 11/12/23 documented as of this encounter
--- OUTSIDE RECORDS SUMMARY | 2025-10-13 13:31 | XMS_ITS | Encounter Summary ---
Author Organization [employer] ([place], [place], [place], [place], [place]) Address [address] [place] [address] Care Team Providers Care Ceramic Painter Name Role Phone Jay Howell MD Primary Care Provider [phone] Encounter Details Date Type Department Care Team (Late st Contact Info) Description 06/14/2020 Transcribed Document [facility] [place] Family Medicine [address] [place] [address] ProviderJessie MD [address] [place], [place] [phone] Social History Tobacco Use Types Packs/Day Years [...] PAUL GERBER RN - 06/14/2020 6:24 EDT documented in this encounter Plan of Treatment Not on file documented as of this encounter Visit Diagnoses Not on filedocumented in this encounter Care Teams Ceramic Painter Relationship Specialty Start Date End Date Jay Howell MD [address] [place] [phone] PCP - General Emergency Medicine 11/12/23 documented as of this encounter
--- OUTSIDE RECORDS SUMMARY | 2025-10-13 13:31 | XMS_ITS | Encounter Summary ---
Author Organization [employer] ([place], [place], [place], [place], [place]) Address [address] [place] [address] Care Team Providers Care Closing Supervisor Name Role Phone Jay Howell MD Primary Care Provider [phone] Encounter Details Date Type Department Care Team (Late st Contact Info) Description 03/03/2021 Transcribed Document [facility] [place] Family Medicine [address] [place] [address] ProviderJessie MD [address] [place], [place] [phone] Social History Tobacco Use Types Packs/Day Years [...] Communication Barrier : None Primary Language : Filipino Any Spiritual/Cultural Needs or Requests : No [...] 16:24 EDT Electronically signed by [facility] Conversion Bondactor Machine Operator Cerner at 02/04/2023 2:00 PM CDT documented in this encounter Plan of Treatment Not on file documented as of this encounter Visit Diagnoses Not on filedocumented in this encounter Care Teams Closing Supervisor Relationship Specialty Start Date End Date Jay Howell MD [address] [place] [phone] PCP - General Emergency Medicine 11/12/23 documented as of this encounter
--- OUTSIDE RECORDS SUMMARY | 2025-10-13 13:31 | XMS_ITS | Encounter Summary ---
Author Organization [employer] ([place], [place], [place], [place], [place]) Address [address] [place] [address] Care Team Providers Care Animal Control Supervisor Name Role Phone Jay Howell MD Primary Care Provider [phone] Encounter Details Date Type Department Care Team (Late st Contact Info) Description 08/23/2020 Transcribed Document [facility] [place] Family Medicine [address] [place] [address] ProviderJessie MD [address] [place] [phone] Social History Tobacco Use Types Packs/Day Years Used Date Smoking Tobacco: Never Assessed Comments Unknown Sex and Gender Information Value Date Recorded Sex Assigned at Not on file Legal Sex Female 7:30 PM CDT Gender Identity Not on file Sexual Orientation Not on file documented as of this encounter Miscellaneous Notes * Cerner Conversion Note - Jessie Yuen MD - 08/23/2020 1:35 AM EMERGENCY MEDICAL TECH ED Discharge Entered On: 08/23/2020 2:08 EST [...] 08/23/2020 2:07 EST Electronically signed by Sivan [facility] Conversion Presales Consultant Cerner at 02/04/2023 2:21 PM CDT documented in this encounter Plan of Treatment Not on file documented as of this encounter Visit Diagnoses Not on filedocumented in this encounter Care Teams Animal Control Supervisor Relationship Specialty Start Date End Date Jay Howell MD [address] [place] [phone] PCP - General Emergency Medicine 11/12/23 documented as of this encounter
--- OUTSIDE RECORDS SUMMARY | 2025-10-13 13:31 | XMS_ITS | Encounter Summary ---
Author Organization [employer] ([place], [place], [place], [place], [place]) Address [address] [place] [address] Care Team Providers Care Oracle Software Engineer Name Role Phone Jay Howell MD Primary Care Provider [phone] Encounter Details Date Type Department Care Team (Late st Contact Info) Description 03/03/2021 Transcribed Document [facility] Family Medicine [address] [place] [address] ProviderJessie MD [address] [place], [place] [address]611 Social History Tobacco Use Types Packs/Day Years [...] - Non - Urgent Tracking Group : [facility] ED Viri Gonsales RN - 03/03/2021 [...] 16:07:23 EDT) Problems(Active) Apnea, sleep (SNOMED CT :109227369 ) Name of Problem: Apnea, sleep ; Recorder: UJAN LUIS GIL RN; Confirmation: Confirmed ; Classification: Medical ; Code: [id number] ; Contributor System: PowerChart ; Last Updated: 11/12/2014 10:12 EST ; Life Cycle Date: 11/12/2014 ; Life Cycle Status: Active ; Vocabulary: SNOMED CT Arthritis (SNOMED CT :6193545 ) Name of Problem: Arthritis ; Recorder: KENYON CHAMBERS RN; Confirmation: Confirmed ; Classification: Medical ; Code: [id number] ; Contributor System: PowerChart ; Last Updated: 04/10/2016 8:04 EDT ; Life Cycle Date: 08/13/2013 ; Life Cycle Status: Active ; Vocabulary: SNOMED CT Atrial fibrillation with RVR (SNOMED CT :3646053798 ) Name of Problem: Atrial fibrillation with RVR ; Recorder: SANG RICO APRN; Confirmation: Confirmed ; Classification: Medical ; Code: [id number] ; Contributor System: PowerChart ; Last Updated: 04/10/2016 8:05 EDT ; Life Cycle Date: 04/10/2016 ; Life Cycle Status: Active ; Responsible Provider: SANG RICO APRN; Vocabulary: SNOMED CT Blood clot (SNOMED CT :992132164 ) Name of Problem: Blood clot ; Recorder: KENYON CHAMBERS RN; Confirmation: Confirmed ; Classification: Patient Stated ; Code: [id number] ; Contributor System: PowerChart ; Last Updated: [...] Vocabulary: Patient Care Chest pain (SNOMED CT :11187278 ) Name of Problem: Chest pain ; Recorder: SANG RICO APRN; Confirmation: Complaint of ; Classification: Medical ; Code: 22159933 ; Contributor System: PowerChart ; Last Updated: 04/10/2016 8:05 EDT ; Life Cycle Status: Active ; Responsible Provider: SANG RICO APRN; Vocabulary: SNOMED CT Chronic anticoagulation (SNOMED CT :519014640 ) Name of Problem: Chronic anticoagulation ; Recorder: SANG RICO APRN; Confirmation: Confirmed ; Classification: Medical ; Code: 415863622 ; Contributor System: PowerChart ; Last Updated: 04/10/2016 8:05 EDT ; Life Cycle Date: 04/10/2016 ; Life Cycle Status: Active ; Responsible Provider: SANG RICO APRN; Vocabulary: SNOMED CT Clotting disorder (SNOMED CT :144662588 ) Name of Problem: Clotting disorder ; Recorder: KENYON CHAMBERS RN; Confirmation: Confirmed ; Classification: Patient Stated ; Code: 541625338 ; Contributor System: PowerChart ; Last Updated: 03/28/2014 19:29 EDT ; Life Cycle Date: 08/13/2013 ; Life Cycle Status: Active ; Vocabulary: SNOMED CT COPD (SNOMED CT :98802035 ) Name of Problem: COPD ; Recorder: KENYON CHAMBERS RN; Confirmation: Confirmed ; Classification: Medical ; Code: 34625026 ; Contributor System: PowerChart ; Last Updated: 04/10/2016 8:03 EDT ; Life Cycle Date: 08/13/2013 ; Life Cycle Status: Active ; Vocabulary: SNOMED CT Coronary artery disease (SNOMED CT :5569413368 ) Name of Problem: Coronary artery disease ; Recorder: KENYON CHAMBERS RN; Confirmation: Confirmed ; Classification: Medical ; Code: 9130121792 ; Contributor System: PowerChart ; Last Updated: 04/10/2016 8:03 EDT ; Life Cycle Date: 08/13/2013 ; Life Cycle Status: Active ; Vocabulary: SNOMED CT Diabetes mellitus (SNOMED CT :299412179 ) Name of Problem: Diabetes mellitus ; Recorder: KENYON CHAMBERS RN; Confirmation: Confirmed ; Classification: Medical ; Code: 577130129 ; Contributor System: PowerChart ; Last Updated: 04/10/2016 8:04 EDT ; Life Cycle Date: 08/13/2013 ; Life Cycle Status: Active ; Vocabulary: SNOMED CT Emphysema (SNOMED CT :876638217 ) Name of Problem: Emphysema ; Recorder: JUAN LUIS GIL RN; Confirmation: Confirmed ; Classification: Medical ; Code: 459845491 ; Contributor System: PowerChart ; Last Updated: 11/12/2014 10:11 EST ; Life Cycle Date: 11/12/2014 ; Life Cycle Status: Active ; Vocabulary: SNOMED CT GERD - Gastro-esophageal reflux disease (SNOMED CT :9110941565 ) Name of Problem: GERD - Gastro-esophageal reflux disease ; Recorder: KENYON CHAMBERS RN; Confirmation: Confirmed ; Classification: Medical ; Code: [id number] ; Contributor System: PowerChart ; Last Updated: [...] Patient Care High blood pressure (SNOMED CT :05010479 ) Name of Problem: High blood pressure ; Recorder: KENYON CHAMBERS RN; Confirmation: Confirmed ; Classification: Medical ; Code: 42947047 ; Contributor System: PowerChart ; Last Updated: 04/10/2016 8:03 EDT ; Life Cycle Date: 08/13/2013 ; Life Cycle Status: Active ; Vocabulary: SNOMED CT History of obstructive sleep apnea (IMO :56423006 ) Name of Problem: History of obstructive sleep apnea ; Recorder: SYSTEM, SYSTEM; Confirmation: Confirmed ; Classification: Medical ; Code: 14463110 ; Last Updated: 08/25/2020 18:21 EST ; Life Cycle Date: 08/25/2020 ; Life Cycle Status: Active ; Vocabulary: IMO Hx of pulmonary embolus (SNOMED CT :141598860 ) Name of Problem: Hx of pulmonary embolus ; Recorder: SANG RICO APRN; Confirmation: Confirmed ; Classification: Medical ; Code: 626386087 ; Contributor System: PowerChart ; Last Updated: 04/10/2016 8:05 EDT ; Life Cycle Date: 04/10/2016 ; Life Cycle Status: Active ; Responsible Provider: SANG RICO APRN; Vocabulary: SNOMED CT Hyperlipidemia (SNOMED CT :96187982 ) Name of Problem: Hyperlipidemia ; Recorder: KENYON CHAMBERS RN; Confirmation: Confirmed ; Classification: Medical ; Code: 57985789 ; Contributor System: ReesioChart ; Last Updated: 04/10/2016 8:03 EDT ; Life Cycle Date: 08/13/2013 ; Life Cycle Status: Active ; Vocabulary: SNOMED CT Multiple renal cysts (SNOMED CT :539556801 ) Name of Problem: Multiple renal cysts ; Recorder: KENYON CHAMBERS RN; Confirmation: Confirmed ; Classification: Medical ; Code: 589227370 ; Contributor System: ReesioChart ; Last Updated: 04/10/2016 8:04 EDT ; Life Cycle Date: 08/13/2013 ; Life Cycle Status: Active ; Vocabulary: SNOMED CT Stented coronary artery (SNOMED CT :0566351250 ) Name of Problem: Stented coronary artery ; Recorder: KENYON CHAMBERS RN; Confirmation: Confirmed ; Classification: Medical ; Code: 2394574384 ; Contributor System: ReesioChart ; Last Updated: 04/10/2016 8:03 EDT ; Life Cycle Date: 08/13/2013 ; Life Cycle Status: Active ; Vocabulary: SNOMED CT Diagnoses(Active) Hip pain-swelling Date: 03/03/2021 ; Diagnosis Type: Reason For Visit ; Confirmation: Complaint of ; Clinical Dx: Hip pain-swelling ; Classification: Medical ; Clinical Service: Emergency medicine ; Code: PNED ; Probability: 0 ; Diagnosis Code: [id number] ED Height and Weight Height Source : Stated Height Entry Format : [place] Height, Feet : 5 ft(Converted to: 152 cm, 60 Inch) Height, Inches : 3 Inch(Converted to: 0 ft 3 Inch, 7.62 cm) Clinical Height : 160.02 cm Weight Source, ED : Critical estimated dosing weight Weight Entry Format : [place] Weight, Pounds : 154 lb Clinical Dosing Weight : 70 kg Body Surface Area (BSA) : 1.73 m2 Body Mass Index : 27.3 kg/m2 (HI) [address] Body Weight (IBW) : 52.02 kg Viri Gonsales RN - 03/03/2021 16:04 EDT Electronically signed by Gayle Finnegan Conversion Administrative Program Specialist Cerner at 02/04/2023 2:20 PM CDT documented in this encounter Plan of Treatment Not on file documented as of this encounter Visit Diagnoses Not on filedocumented in this encounter Care Teams Oracle Software Engineer Relationship Specialty Start Date End Date Jay Howell MD [address] [place] [phone] PCP - General Emergency Medicine 11/12/23 documented as of this encounter
--- OUTSIDE RECORDS SUMMARY | 2025-10-13 13:31 | XMS_ITS | Encounter Summary ---
Author Organization [employer] ([place], [place], [place], [place], [place]) Address [address] [place] [address] Care Team Providers Care Per Diem Registered Nurse Name Role Phone Jay Howell MD Primary Care Provider [phone] Encounter Details Date Type Department Care Team (Late st Contact Info) Description 02/13/2021 Transcribed Document [facility] [place] Family Medicine [address] [place] [address] ProviderJessie MD [address] [place], [place] [phone] Social History Tobacco Use Types Packs/Day Years Used Date Smoking Tobacco: Never Assessed Comments Unknown Sex and Gender Information Value Date Recorded Sex Assigned at Not on file Legal Sex Female 7:30 PM CDT Gender Identity Not on file Sexual Orientation Not on file documented as of this encounter Miscellaneous Notes * Cerner Conversion Note - Jessie ProviderMD - 02/13/2021 11:30 AM CDT [facility] Endo PreOp Summary Primary Physician: FABY GRIMM MD Finalized Date/Time: 02/13/21 11:03:33 Pt. Name: SKYLER MONTOYA.O.B./Sex: 1940 Female Med Rec #: [id number] Physician: FABY GRIMM MD Financial #: [id number] Pt. Type: O Room/Bed: END/ Admit/Disch: 02/13/21 09:44:00 - Institution: [facility] Endo PreOp Case Times Entry [...] NON-EXEMPT 02/13/21 11:03 Electronically signed by Sivan [facility] Conversion Hog Slaughterer Cerner at 02/04/2023 2:00 PM CDT documented in this encounter Plan of Treatment Not on file documented as of this encounter Visit Diagnoses Not on filedocumented in this encounter Care Teams Per Diem Registered Nurse Relationship Specialty Start Date End Date Jay Howell MD [address] [place] [phone] PCP - General Emergency Medicine 11/12/23 documented as of this encounter
--- OUTSIDE RECORDS SUMMARY | 2025-10-13 13:32 | XMS_ITS | Encounter Summary ---
Author Organization [employer] ([place], [place], [place], [place], [place]) Address [address] [place] [address] Care Team Providers Care Shop Lead Name Role Phone Jay Howell MD Primary Care Provider [phone] Encounter Details Date Type Department Care Team (Late st Contact Info) Description 12/20/2018 Transcribed Document [facility] [place] Family Medicine [address] [place] [address] ProviderJessie MD [address] [place] [phone] Social History Tobacco Use Types Packs/Day Years Used Date Smoking Tobacco: Never Assessed Comments Unknown Sex and Gender Information Value Date Recorded Sex Assigned at Not on file Legal Sex Female 7:30 PM CDT Gender Identity Not on file Sexual Orientation Not on file documented as of this encounter Miscellaneous Notes * Cerner Conversion Note - Jessie ProviderMD - 12/20/2018 7:39 PM MANAGER MAC Admission History, Adult Entered On: 12/20/2018 19:41 [...] Info Preferred Name : ilsa Support Person/Patient Assisted Living Administrator : Deanna Support Person/Pt Rep Name : Willard Contact Password : Marvin Support Person/Pt Rep Contact Information : [phone] Want Family/Rep/Phys Notified of Admit : No Emergency Contact #1 : na Emergency Contact #1 Phone Number : na Emergency Contact #1 Relationship : na Emergency Contact #2 : na Emergency Contact #2 Phone Number : na Emergency Contact #2 Relationship : na Primary Language : Micronesian Preferred Communication Mode : Verbal Communication Barrier [...] Scale Risk Level : 25-45 Medium Risk [place] Fall Interventions : Adequate lighting, Assistive devices [...] Source : Stated Height Entry Format : [place] Height, Feet : 5 ft(Converted to: 152 cm, 60 Inch) Height, Inches : 3 Inch(Converted to: 0 ft 3 Inch, 7.62 cm) Clinical Height : 160.02 cm Weight Source : Standing scale Weight Entry Format : [place] Clinical Dosing Weight : 71.82 kg Weight, Pounds : 158 lb Body Surface Area (BSA) : 1.75 m2 Body Mass Index : 28 kg/m2 (HI) Kopperl Body Weight : 52 kg An Ocampo [...] RN - 12/20/2018 19:39 EST Spiritual/Cultural Needs Mandaeism Preference : Hoahaoism Spiritual/Cultural Needs Comment : joseph after surgery or major surgery An Ocampo RN - 12/20/2018 19:39 EST Valuables and Belongings Valuables and Belongings : Clothing, Personal devices Clothing : Common streetwear Clothing Disposition : Bedside Personal Device Disposition : Bedside Personal Devices : Dentures, partial plate An Ocampo RN - 12/20/2018 19:39 EST Electronically signed by [facility] Conversion Director Of The Biophysics Facility Cerner at 02/04/2023 2:16 PM CDT documented in this encounter Plan of Treatment Not on file documented as of this encounter Visit Diagnoses Not on filedocumented in this encounter Care Teams Shop Lead Relationship Specialty Start Date End Date Jay Howell MD [address] [place] [phone] PCP - General Emergency Medicine 11/12/23 documented as of this encounter
--- OUTSIDE RECORDS SUMMARY | 2025-10-13 13:32 | XMS_ITS | Encounter Summary ---
Author Organization [employer] ([place], [place], [place], [place], [place]) Address [address] [place] [address] Care Team Providers Care Vault Teller Name Role Phone Jay Howell MD Primary Care Provider [phone] Encounter Details Date Type Department Care Team (Late st Contact Info) Description 08/28/2020 Transcribed Document [facility] [place] Family Medicine [address] [place] [address] ProviderJessie MD [address] [place] [phone] Social History Tobacco Use Types Packs/Day Years Used Date Smoking Tobacco: Never Assessed Comments Unknown Sex and Gender Information Value Date Recorded Sex Assigned at Not on file Legal Sex Female 7:30 PM CDT Gender Identity Not on file Sexual Orientation Not on file documented as of this encounter Miscellaneous Notes * Cerner Conversion Note - Jessie ProviderMD - 08/28/2020 5:00 PM FARM TRACTOR OPERATOR Chart Check - Review Order Profile Entered On: 08/28/2020 18:04 EST Performed On: 08/28/2020 17:00 EST by Jose L Jones RN Chart Check All Active Orders Reviewed : Yes Jose L Jones RN - 08/28/2020 18:04 EST Electronically signed by Sivan [facility] Conversion Pediatric Physical Therapist Cerner at 02/04/2023 2:20 PM CDT documented in this encounter Plan of Treatment Not on file documented as of this encounter Visit Diagnoses Not on filedocumented in this encounter Care Teams Vault Teller Relationship Specialty Start Date End Date Jay Howell MD [address] [place] [phone] PCP - General Emergency Medicine 11/12/23 documented as of this encounter
--- OUTSIDE RECORDS SUMMARY | 2025-10-13 13:32 | XMS_ITS | Encounter Summary ---
Author Organization [employer] ([place], [place], [place], [place], [place]) Address [address] [place] [address] Care Team Providers Care Washer Carcass Name Role Phone Jay Howell MD Primary Care Provider [phone] Encounter Details Date Type Department Care Team (Late st Contact Info) Description 12/20/2018 Transcribed Document [facility] [place] Family Medicine [address] [place] [address] ProviderJessie MD [address] [place] [address] Social History Tobacco Use Types Packs/Day Years [...] Yuen MD - 12/20/2018 8:00 AM METAL ENGRAVER Patient: SKYLER MONTOYA Age: 77 years Sex: Female : 1940 Associated Diagnoses: None Author: FREDY PACHECO MD-CAR Basic Information PCP: Dr. Moeller Drug Safety Assistant: Stephania Garcia MD Chief Complaint Pre-op clearance; shoulder surgery with Dr. Prieto Watters at [facility] Stress test 12/06/18; abnormal History [...] All Problems Chest pain / SNOMED CT 50516757 / Complaint of Cataract / Patient Care / Confirmed Glaucoma / Patient Care / Confirmed Coronary artery disease / SNOMED CT 5230176289 / Confirmed Stented coronary artery / SNOMED CT 6362430465 / Confirmed High blood pressure / SNOMED CT 58583120 / Confirmed Hyperlipidemia / SNOMED CT 18697987 / Confirmed Clotting disorder / SNOMED CT 602670543 / Confirmed COPD / SNOMED CT 24859303 / Confirmed GERD - Gastro-esophageal reflux disease / SNOMED CT 7132531450 / Confirmed Multiple renal cysts / SNOMED CT 589134445 / Confirmed UTI - Urinary tract infection / SNOMED CT 8835889208 / Confirmed Arthritis / SNOMED CT 7923006 / Confirmed Diabetes mellitus / SNOMED CT 733943952 / Confirmed Blood clot / SNOMED CT 436712018 / Confirmed Emphysema / SNOMED CT 412151016 / Confirmed Apnea, sleep / SNOMED CT 484361674 / Confirmed Hx of pulmonary embolus / SNOMED CT 813300211 / Confirmed Chronic anticoagulation / SNOMED CT 391044822 / Confirmed Atrial fibrillation with RVR / SNOMED CT 6897604946 / Confirmed History of obstructive sleep apnea / IMO 04890870 / Confirmed Histories No education data available. [...] History: Active Cataract Glaucoma Coronary artery disease (5452545095) Stented coronary artery (2462418276) High blood pressure (04299059) Hyperlipidemia (14999476) COPD (58380059) GERD - Gastro-esophageal reflux disease (9996677178) Multiple renal cysts (111697684) UTI - Urinary tract infection (4204660981) Arthritis (1800406) Diabetes mellitus (157316441) Emphysema (576532179) Apnea, sleep (730688149) Hx of pulmonary embolus (476266580) Chronic anticoagulation (351588353) Atrial fibrillation with RVR (1636515732) Family History: Cardiomyopathy Child Stroke Brother Heart attack Brother Sister Leukemia Child Cancer Father Mother Sister Coronary heart disease Child Procedure history: femur repair. Appendectomy (672962869). uterine suspension. Hysterectomy (194092321). back surgury. Coronary artery bypass graft (390117517). Cholecystectomy (74458922). Hip replacement (6144992375). cataract surgury. Social History Social & Psychosocial [...] of motion, Normal strength. Integumentary: Warm, Dry, [place]. Neurologic: Alert, Oriented. Psychiatric: Cooperative. Review / [...] days post cath. Electronically signed by Sivan, [facility] Conversion Cylinder Valve Repairer Cerner at 02/04/2023 2:21 PM CDT documented in this encounter Plan of Treatment Not on file documented as of this encounter Visit Diagnoses Not on filedocumented in this encounter Care Teams Washer Carcass Relationship Specialty Start Date End Date Jay Howell MD [address] [place] [phone] PCP - General Emergency Medicine 11/12/23 documented as of this encounter
--- OUTSIDE RECORDS SUMMARY | 2025-10-13 13:32 | XMS_ITS | Encounter Summary ---
Author Organization [employer] ([place], [place], [place], [place], [place]) Address [address] [place] [address] Care Team Providers Care Bsa/Aml Compliance Officer Name Role Phone Jay Howell MD Primary Care Provider [phone] Encounter Details Date Type Department Care Team (Late st Contact Info) Description 03/19/2021 Transcribed Document [facility] [place] [address] [place] [address] ProviderJessie MD [address] [place], [place] [phone] Social History Tobacco Use Types Packs/Day Years [...] 03/19/2021 14:23 EDT Electronically signed by Sivan [facility] Conversion Manager English Cerner at 02/04/2023 2:09 PM CDT documented in this encounter Plan of Treatment Not on file documented as of this encounter Visit Diagnoses Not on filedocumented in this encounter Care Teams Bsa/Aml Compliance Officer Relationship Specialty Start Date End Date Jay Howell MD [address] [place] [phone] PCP - General Emergency Medicine 11/12/23 documented as of this encounter
--- OUTSIDE RECORDS SUMMARY | 2025-10-13 13:32 | XMS_ITS | Encounter Summary ---
Author Organization [employer] ([place], [place], [place], [place], [place]) Address [address] [place] [address] Care Team Providers Care Central Processing Technician Name Role Phone Jay Howell MD Primary Care Provider [phone] Encounter Details Date Type Department Care Team (Late st Contact Info) Description 08/28/2020 Transcribed Document [facility] [place] Family Medicine [address] [place] [address] ProviderJessie MD [address] [place] [address] [phone] Social History Tobacco Use Types Packs/Day Years Used Date Smoking Tobacco: Never Assessed Comments Unknown Sex and Gender Information Value Date Recorded Sex Assigned at Not on file Legal Sex Female 7:30 PM CDT Gender Identity Not on file Sexual Orientation Not on file documented as of this encounter Miscellaneous Notes * Cerner Conversion Note - Jessie ProviderMD - 08/28/2020 1:08 PM TARGET AIRCRAFT CONTROLLER Patient: SKYLER MONTOYA Age: 79 Years Sex: [...] distal ecchymosis. Palpable DP pulse, audible biphasic HOTEL DIRECTOR signal. Neuromotor intact. VTE Risk Total Score [...] PT occlusion - distal - 08/26/2020 ([facility];[place]) RIGHT SOFT TILE SETTER access - ultrasound guided Aortogram with LEFT lower extremity run-off LEFT PT angioplasty (2.5-2j463vl [employer]) LEFT peroneal angioplasty (2.5-6k931hw [employer]) RIGHT SOFT TILE SETTER closure (Angioseal) LEFT leg debridement - H&H, [...] for tomorrow's vac change. - Rx for [place] 5/325mg q4-6h prn pain #20 on chart. - Will need RLE angio with revascularization in near future. - F/[place] 1 wk w/ [place] [facility] [place]45[place] - [...] 24 Hours) Radiology Results (Last 48 hours) [id number] -- 08/25/2020 05:53 CT Abdomen WO W [...] rash) nitrofurantoin (blisters, blisters) Electronically signed by [facility] Conversion Movie Star Cerner at 02/04/2023 1:58 PM CDT documented in this encounter Plan of Treatment Not on file documented as of this encounter Visit Diagnoses Not on filedocumented in this encounter Care Teams Central Processing Technician Relationship Specialty Start Date End Date Jay Howell MD [address] [place] [phone] PCP - General Emergency Medicine 11/12/23 documented as of this encounter
--- OUTSIDE RECORDS SUMMARY | 2025-10-13 13:32 | XMS_ITS | Encounter Summary ---
Author Organization [employer] ([place], [place], [place], [place], [place]) Address [address] [place] [place] [address] Care Team Providers Care Television News Photographer Name Role Phone Jay Howell MD Primary Care Provider [phone] Encounter Details Date Type Department Care Team (Late st Contact Info) Description 12/21/2018 Transcribed Document [facility] [place] [address] [place] [address] ProviderJessie MD [address] [place] [address] Social History Tobacco Use Types Packs/Day Years Used Date Smoking Tobacco: Never Assessed Comments Unknown Sex and Gender Information Value Date Recorded Sex Assigned at Not on file Legal Sex Female 7:30 PM CDT Gender Identity Not on file Sexual Orientation Not on file documented as of this encounter Miscellaneous Notes * Cerner Conversion Note - Jessie ProviderMD - 12/21/2018 9:20 AM WEB INTERFACE DEVELOPER Spiritual Care Short Form Entered On: 12/21/2018 22:31 EST Performed On: 12/21/2018 9:20 EST by JAZZ PINA Chaplain-Non Cert General Information, Spiritual Care Spiritual Care Referred by : Nocturnist initiated Reason for Visit : Initial Ministry Provided to : Patient Intervention/Comment/Summary Points : Visited conducted by Spiritual Manager Fiber volunteer Akosua Velasquez Confucianism Preference : Gnosticism JAZZ PINA Chaplain-Magalis Del Castillo - 12/21/2018 22:31 EST documented in this encounter Plan of Treatment Not on file documented as of this encounter Visit Diagnoses Not on filedocumented in this encounter Care Teams Television News Photographer Relationship Specialty Start Date End Date Jay Howell MD [address] [place] [phone] PCP - General Emergency Medicine 11/12/23 documented as of this encounter
--- OUTSIDE RECORDS SUMMARY | 2025-10-13 13:32 | XMS_ITS | Encounter Summary ---
Author Organization [facility] Address [address] [place] [address] Care Team Providers Care Photography And Prints Curator Name Role Phone Jay Howell MD Primary Care Provider [phone] Encounter Details Date Type Department Care Team (Late st Contact Info) Description 06/08/2012 Conversion Encounter [facility] HISTORICAL CONV [address] [place] [address] Interface, See Report Social History [...] Amado M.D. ' Kailey Ruff APRN [address], [address] [place] [address] [employer] NEW PATIENT EVALUATION SKYLER MONTOYA : 1940 DATE OF VISIT: 06/08/2012 REFERRING PHYSICIAN: Dr. Avtar Moeller PROBLEMS: 1. History of pulmonary embolus. a. Pulmonary embolus diagnosed February 2011 at [facility]. b. Details incomplete. 2. Warfarin therapy. [...] was evidently diagnosed by CT angiogram at [facility]; I do not have records from [...] to Macrodantin. SOCIAL HISTORY: She lives in [place] with her . She is accompanied today by her jsrfldce-ta-htl who is also a patient of our practice. 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 She is not working now. She does [...] dryness and this is managed by an forensic audit expert. She has the hematuria and pain with [...] repeat her anticardiolipin antibody since this can foreign exchange dealer time. If the anticardiolipin antibody is persistently [...] about her diagnosis of pulmonary embolus at [facility] and any additional testing done [...] available. Tana Rivera M.D.* TRUNG/rxaldarlene Doc. ID [id number] Rev. #0 cc: Avtar Moeller M.D.* Dr. Etienne De La Paz Page 4 of 4 Page 1 of 4 Authenticated and Edited by TANA RIVERA M.D. On 06/09/12 3:24:05 PM * Interface, See Report - 06/08/2012 4:16 PM EDT Zurdo Schuler M.D. ' Tana Rivera M.D. ' Rosalio Marie M.D. ' STEPHANIE Quezada M.D. ' Heath Amado M.D. ' Kailey Ruff APRN [address] [place] [address], [place] [address] [place] [address] [employer] OFFICE NOTE SKYLER MONTOYA : 1940 DATE [...] medicines and I will try to get psychotherapist social worker to give her some help with this. Also, I will speak to Dr. De La Paz about this and I have a call into his office. Tana Rivera M.D.* TRUNG/ruperto Doc. ID [id number] Rev. #0 cc: Etienne De La Paz Jr., M.D.* Avtar Moeller M.D.* Page 2 of 2 Page 1 of 2 Authenticated by TANA RIVERA M.D. On 07/07/2012 04:36:41 PM * Interface, See Report - 06/08/2012 4:16 PM EDT Zurdo Schuler M.D. ' Tana Rivera M.D. ' Rosalio Marie M.D. ' STEPHANIE Quezada M.D. ' Heath Amado M.D. ' Kailey Ruff APRN [address], [address] [place] [id number] [employer] OFFICE NOTE SKYLER MONTOYA : 1940 DATE [...] antibodies. Tana Rivera M.D.* RME/rxalw Doc. ID [id number] Rev. #0 cc: Avtar Moeller M.D.* Page 2 of 2 Page 1 of 2 Authenticated by TANA RIVERA M.D. On 08/15/2012 09:44:06 AM * Interface, See Report - 06/08/2012 4:16 PM EDT Zurdo Scuhler M.D. ' Tana Rivera M.D. ' Rosalio Marie M.D. ' STEPHANIE Quezada M.D. ' David Calvillo M.D. ' Heath Amado M.D. ' Kailey Ruff APRN [address] [place] [address] [place] [address] [employer] OFFICE NOTE SKYLER MONTOYA : 1940 DATE [...] develop. Tana Rivera M.D.* RMEmiliano/rxalw Doc. ID [id number] Rev. #0 cc: Avtar Moeller M.D.* Jorje Watters M.D.* SKYLER MONTOYA : 1940 DATE OF VISIT: 04/26/2013 Page 2 of 2 Page 1 of 2 DOCUMENT CODE :[facility]: PHYSICIAN CODE :66635: Authenticated by TANA RIVERA M.D. On 05/04/2013 10:54:04 AM * Interface, See Report - 06/08/2012 4:16 PM EDT Zurdo Schuler M.D. ' Tana Rivera M.D. ' Rosalio Marie M.D. ' STEPHANIE Quezada M.D. ' David Calvillo M.D. ' Heath Amado M.D. ' Kailey Ruff APRN [facility], [place] [address] [place] [address] [facility] OFFICE NOTE SKYLER MONTOYA : 1940 DATE [...] develop. Tana Rivera M.D.* RMEmiliano/rxalw Doc. ID [id number] Rev. #0 cc: Avtar Moeller M.D.* Etienne De La Paz Jr., M.D.* Jorje Watters M.D.* SKYLER MONTOYA : 1940 DATE OF VISIT: 07/12/2013 Page 2 of 2 Page 1 of 2 DOCUMENT CODE :[facility]: PHYSICIAN CODE :96162: Authenticated by TANA RIVERA M.D. On 07/16/2013 01:57:36 PM documented in this encounter Plan of Treatment Not on file documented as of this encounter Visit Diagnoses Not on filedocumented in this encounter Care Teams Photography And Prints Curator Relationship Specialty Start Date End Date Jay Howell MD [address] [place] [address] PCP - General Emergency Medicine 04/28/23 documented as of this encounter
--- OUTSIDE RECORDS SUMMARY | 2025-10-13 13:32 | XMS_ITS | Encounter Summary ---
Author Organization [employer] ([place], [place], [place], [place], [place]) Address [address] [place] [address] Care Team Providers Care Computer Recycling Worker Name Role Phone Jay Howell MD Primary Care Provider [phone] Encounter Details Date Type Department Care Team (Late st Contact Info) Description 08/28/2020 Transcribed Document [facility] [place] [address] [place] [address] ProviderJessie MD [address] [place] [address] Social History Tobacco Use Types Packs/Day Years Used Date Smoking Tobacco: Never Assessed Comments Unknown Sex and Gender Information Value Date Recorded Sex Assigned at Not on file Legal Sex Female 7:30 PM CDT Gender Identity Not on file Sexual Orientation Not on file documented as of this encounter Miscellaneous Notes * Cerner Conversion Note - Jessie Yuen MD - 08/28/2020 9:30 AM COMPONENTS ENGINEER Vehicle Assembly Inspector Inpatient Document Entered On: 08/28/2020 11:43 EST Performed On: 08/28/2020 11:40 EST by KARRIE FERNANDES, Rn-Educator Diabetes Vehicle Assembly Inspector Inpatient Document Reason for Vehicle Assembly Inspector Visit : Physician order Endocrine/Metabolic History : [...] 08/28/2020 11:40 EST Electronically signed by Sivan [facility] Conversion Mat Puncher Cerner at 02/04/2023 2:21 PM CDT documented in this encounter Plan of Treatment Not on file documented as of this encounter Visit Diagnoses Not on filedocumented in this encounter Care Teams Computer Recycling Worker Relationship Specialty Start Date End Date Jay Howell MD [address] [place] [phone] PCP - General Emergency Medicine 11/12/23 documented as of this encounter
--- OUTSIDE RECORDS SUMMARY | 2025-10-13 13:32 | XMS_ITS | Encounter Summary ---
Author Organization [employer] ([place], [place], [place], [place], [place]) Address [address] [place] [address] Care Team Providers Care Insurance Business Analyst Name Role Phone Jay Howell MD Primary Care Provider [phone] Encounter Details Date Type Department Care Team (Late st Contact Info) Description 12/20/2018 Transcribed Document [facility] [place] [facility] [place] [address] [place] [address] ProviderJessie MD [address] [place] [address] Social History Tobacco Use Types Packs/Day Years Used Date Smoking Tobacco: Never Assessed Comments Unknown Sex and Gender Information Value Date Recorded Sex Assigned at Not on file Legal Sex Female 7:30 PM CDT Gender Identity Not on file Sexual Orientation Not on file documented as of this encounter Miscellaneous Notes * Cerner Conversion Note - Jessie ProviderMD - 12/20/2018 12:01 PM AGRICULTURE INSTRUCTOR Spiritual Care Assessment Entered On: 12/20/2018 13:37 EST Performed On: 12/20/2018 13:13 EST by ARTHUR HONEYCUTT General Information Initial Visit : Yes Referred by : Patient Referral Reason Comment : Advance directive Ministry Provided to : Patient, Family/Significant other Scientology Preference : Gnosticist ARTHUR HONEYCUTT - 12/20/2018 13:35 EST Spiritual [...] supported, Feelings expressed, Information provided Spiritual and Scientology : Spiritual/Scientology support provided Change, Adjustment and Loss : Provided support for current loss/grief ARTHUR HONEYCUTT P - 12/20/2018 13:35 EST Electronically signed by [facility], [facility] Conversion Religious Assistant Cerner at 02/04/2023 2:01 PM CDT documented in this encounter Plan of Treatment Not on file documented as of this encounter Visit Diagnoses Not on filedocumented in this encounter Care Teams Insurance Business Analyst Relationship Specialty Start Date End Date Jay Howell MD [address] [place] [phone] PCP - General Emergency Medicine 11/12/23 documented as of this encounter
--- OUTSIDE RECORDS SUMMARY | 2025-10-13 13:32 | XMS_ITS | Encounter Summary ---
Author Organization [employer] ([place], [place], [place], [place], [place]) Address [address] [place] [address] Care Team Providers Care Client Specialist Name Role Phone Jay Howell MD Primary Care Provider [phone] Encounter Details Date Type Department Care Team (Late st Contact Info) Description 12/20/2018 Transcribed Document [facility] [place] Family Medicine [address] [place] [address] ProviderJessie MD [address] [place] [address] [phone] Social History Tobacco Use Types Packs/Day Years Used Date Smoking Tobacco: Never Assessed Comments Unknown Sex and Gender Information Value Date Recorded Sex Assigned at Not on file Legal Sex Female 7:30 PM CDT Gender Identity Not on file Sexual Orientation Not on file documented as of this encounter Miscellaneous Notes * Cerner Conversion Note - Jessie ProviderMD - 12/20/2018 12:01 PM HL7 DEVELOPER Care Management Assessment/Plan Entered On: 12/21/2018 9:37 EST Performed On: 12/21/2018 9:36 EST by ANISH BRAN RN Care Management Note Care Management Note : Discharging today Documentation Status Complete : Yes ANISH BRAN RN - 12/21/2018 9:36 EST Electronically signed by Sivan [facility] Conversion Payroll And Benefits Assistant Cerner at 02/04/2023 1:57 PM CDT documented in this encounter Plan of Treatment Not on file documented as of this encounter Visit Diagnoses Not on filedocumented in this encounter Care Teams Client Specialist Relationship Specialty Start Date End Date Jay Howell MD [address] [place] [phone] PCP - General Emergency Medicine 11/12/23 documented as of this encounter
--- OUTSIDE RECORDS SUMMARY | 2025-10-13 13:32 | XMS_ITS | Encounter Summary ---
Author Organization [employer] ([place], [place], [place], [place], [place]) Address [address] [place] [address] Care Team Providers Care Digital Asset Coordinator Name Role Phone Jay Howell MD Primary Care Provider [phone] Encounter Details Date Type Department Care Team (Late st Contact Info) Description 12/14/2018 Transcribed Document [facility] Family Medicine [address] [place] [address] ProviderJessie MD [address] [place] [address] Social History Tobacco Use Types Packs/Day Years Used Date Smoking Tobacco: Never Assessed Comments Unknown Sex and Gender Information Value Date Recorded Sex Assigned at Not on file Legal Sex Female 7:30 PM CDT Gender Identity Not on file Sexual Orientation Not on file documented as of this encounter Miscellaneous Notes * Cerner Conversion Note - Historical ProviderMD - 12/14/2018 4:49 PM MAINSPRING TORQUE TESTER CR Chest 2 Vws Ordered: 12/12/2018 Auth (Verified) Reason for Exam: cp 12/13/2018 11:39 12/14/2018 16:49 (LESTER PILLAI PA) Reviewed by Provider, No further action required X1 12/14/2018 16:47 (FLORENTIN CAMARGO) No further action required Electronically signed by Sivan [facility] Conversion Mechanical Systems Engineer Cerner at 02/04/2023 2:04 PM CDT documented in this encounter Plan of Treatment Not on file documented as of this encounter Visit Diagnoses Not on filedocumented in this encounter Care Teams Digital Asset Coordinator Relationship Specialty Start Date End Date Jay Howell MD [address] [place] [phone] PCP - General Emergency Medicine 11/12/23 documented as of this encounter
--- OUTSIDE RECORDS SUMMARY | 2025-10-13 13:32 | XMS_ITS | Encounter Summary ---
Author Organization [place] [address] Care Team Providers Care Apprentice Name Role Phone No Pcp, Per Patient Primary Care Provider Evelyne prabhakar Reason for Referral * Interventional Radiology (Routine) - Pending Review Specialty Diagnoses / Procedures Referred By Contac t Referred To Contact Radiology Diagnoses PAD (peripheral artery disease) Critical limb ischemia of left lower extremity (HCC) Procedures IR ANGIOGRAM FEMORAL ARTERIO SHIFT Vargas Wolf MD [address] [place] [address] Phone: tel: fax: Referral ID Status Reason Start Date Expiration Date V isits Requested Visits Authorized [id number] Pending Review 08/21/2025 08/21/2026 1 1 Encounter Details Date Type Department Care Team (Late st Contact Info) Description 08/21/2025 Orders Only SE[facility] Vascular Surg Edg [address] [place] [address] Mary Lombardi MA PAD (peripheral artery disease) (Primary Dx); Critical limb ischemia of left lower extremity (HCC) Social History Tobacco Use Types Packs/Day Years Used Date Smoking Tobacco: Former Cigarettes Q uit: 1991 Passive Smoke Exposure: Past Smokeless Tobacco: Never Alcohol Use Standard Drinks/Week Comments Not Currently 0 (1 standard drink = 0.6 oz pur e alcohol) [facility] Utilities Answer Date Recorded In the past 12 months has [employer], [employer], or [employer] threatened to shut off services in your home? No 06/23/2025 Overall Financial Resource Strain (CARDIA) Answe r Date Recorded How hard is it for you to pa y for the very basics like food, housing, medical care, and heating? Not very hard 06/23/2025 PHQ-2 Answer Date Recorded PHQ-2 Total Score 0 06/23/2025 [facility] - Occupational Stress Questionnaire Answer Date [...] more. Never true 06/23/2025 [facility] Answer D ate Recorded [...] extremity angiogram. Radiographic supervision and interpretation 3. PORCELAIN ENAMEL SPRAYER of SFA with 4 x 120 mm balloon 4. PORCELAIN ENAMEL SPRAYER of DAREN with 2 x 60 mm and 2.5 x 120 mm balloons Mynx closure of 6 Fr arteriotomy SURGEON: Vargas Wolf MD ANESTHESIA: General anesthesia FLUOROSCOPY: Dose: 292 mGy, Time: 19.6 min CONTRAST: 67 ml ESTIMATED BLOOD LOSS: 5 mL SPECIMENS: None COMPLICATIONS: None FINDINGS: Access site was patent but significant disease in mid and distal TELEPHONE QUOTATION CLERK AORTA: Patent infrarenal aorta and bilateral [...] trunk with severe stenosis at ostium. Occluded PORCELAIN ENAMEL SPRAYER proximally for a few cm with reconstitution [...] significant disease in the mid and distal TELEPHONE QUOTATION CLERK, so decision was made to access the proximal TELEPHONE QUOTATION CLERK. Under ultrasound guidance, the L TELEPHONE QUOTATION CLERK was accessed using a micropuncture needle. [...] sheath which was advanced to the R TELEPHONE QUOTATION CLERK. Angiogram was obtained. A wire and catheter were advanced into the popliteal artery. Angiogram confirmed intraluminal position. PORCELAIN ENAMEL SPRAYER of the SFA was performed with a [...] the mid DAREN. Angiogram confirmed intraluminal position. PORCELAIN ENAMEL SPRAYER of the proximal DAREN was performed with a 2.5 x 120 mm balloon under fluoro. Angiogram revealed no residual flow-limiting stenosis. The wire and catheter were advanced into the distal DAREN. Angiogram confirmed intraluminal position. PORCELAIN ENAMEL SPRAYER of the distal DAREN was performed with a 2 x 60 mm balloon. Angiogram revealed residual stenosis. PORCELAIN ENAMEL SPRAYER of the distal DAREN was performed with [...] DAREN RECOMMENDATIONS: Bed rest for 3 hours. [employer] Voice recognition technology was used to complete this note, and it may contain unintended errors despite the service writer advisor's best efforts to proofread it. Please contact me with questions. TID: [id number] us Vargas Wolf MD IMG IR ORDERABLES [...] documented as of this encounter Care Teams Apprentice Relationship Specialty Start Date End Date No Pcp, Per Patient PCP - General 06/04/24 documented as of this encounter
--- OUTSIDE RECORDS SUMMARY | 2025-10-13 13:32 | XMS_ITS | Encounter Summary ---
Author Organization [employer] ([place], [place], [place], [place], [place]) Address [address] [place] [address] Care Team Providers Care Butter Grader Name Role Phone Jay Howell MD Primary Care Provider [phone] Encounter Details Date Type Department Care Team (Late st Contact Info) Description 08/28/2020 Transcribed Document [facility] [place] Medicine [address] [place] [address] ProviderJessie MD [address] [place] [address] [phone] Social History Tobacco Use Types Packs/Day Years Used Date Smoking Tobacco: Never Assessed Comments Unknown Sex and Gender Information Value Date Recorded Sex Assigned at Not on file Legal Sex Female 7:30 PM CDT Gender Identity Not on file Sexual Orientation Not on file documented as of this encounter Miscellaneous Notes * Cerner Conversion Note - Historical ProviderMD - 08/28/2020 10:17 AM GUARD SUPERVISOR Attempt to Treat, OT Entered On: 08/28/2020 [...] 08/28/2020 14:59 EST Electronically signed by Sivan [facility] Conversion Manager Of Loss Prevention Operations Cerner at 02/04/2023 1:59 PM CDT documented in this encounter Plan of Treatment Not on file documented as of this encounter Visit Diagnoses Not on filedocumented in this encounter Care Teams Butter Grader Relationship Specialty Start Date End Date Jay Howell MD [address] [place] [phone] PCP - General Emergency Medicine 11/12/23 documented as of this encounter
--- OUTSIDE RECORDS SUMMARY | 2025-10-13 13:32 | XMS_ITS | Encounter Summary ---
Author Organization [employer] ([place], [place], [place], [place], [place]) Address [address] [place] [address] Care Team Providers Care Streaming Media Specialist Name Role Phone Jay Howell MD Primary Care Provider [phone] Encounter Details Date Type Department Care Team (Late st Contact Info) Description 12/21/2018 Transcribed Document [facility] [place] Medicine [address] [place] [address] ProviderJessie MD [address] [place] [address] Social History Tobacco Use Types Packs/Day Years Used Date Smoking Tobacco: Never Assessed Comments Unknown Sex and Gender Information Value Date Recorded Sex Assigned at Not on file Legal Sex Female 7:30 PM CDT Gender Identity Not on file Sexual Orientation Not on file documented as of this encounter Miscellaneous Notes * Cerner Conversion Note - Jessie Yuen MD - 12/21/2018 10:31 AM WHISKEY FILTERER Discharge Instructions Entered On: 12/21/2018 10:31 EST Performed On: 12/21/2018 10:31 EST by AUSTEN WEAVER, JMASHID DC Instructions HWD Stroke/TIA Discharge Ins : [...] now and restart on 12-24-18 AUSTEN WEAVER, [facility] - 12/21/2018 10:33 EST Electronically signed by [facility], [facility] Conversion Warehouse Assembly Worker Cerner at 02/04/2023 1:57 PM CDT documented in this encounter Plan of Treatment Not on file documented as of this encounter Visit Diagnoses Not on filedocumented in this encounter Care Teams Streaming Media Specialist Relationship Specialty Start Date End Date Jay Howell MD [address] [place] [phone] PCP - General Emergency Medicine 11/12/23 documented as of this encounter
--- OUTSIDE RECORDS SUMMARY | 2025-10-13 13:32 | XMS_ITS | Encounter Summary ---
Author Organization [employer] ([place], [place], [place], [place], [place]) Address [address] [place] [address] Care Team Providers Care Padding Gluer Name Role Phone Jay Howell MD Primary Care Provider [phone] Encounter Details Date Type Department Care Team (Late st Contact Info) Description 08/28/2020 Transcribed Document [facility] [place] Family Medicine [address] [place] [address] ProviderJessie MD [address] [place] [address] [phone] Social History Tobacco Use Types Packs/Day Years Used Date Smoking Tobacco: Never Assessed Comments Unknown Sex and Gender Information Value Date Recorded Sex Assigned at Not on file Legal Sex Female 7:30 PM CDT Gender Identity Not on file Sexual Orientation Not on file documented as of this encounter Miscellaneous Notes * Cerner Conversion Note - Historical ProviderMD - 08/28/2020 9:22 AM CREW SUPERVISOR Patient: SKYLER MONTOYA Age: 79 Years [...] (High) 08/28/2020 07:35 EST Electronically signed by [facility], [facility] Conversion Printing Supervisor Cerner at 02/04/2023 2:12 PM CDT documented in this encounter Plan of Treatment Not on file documented as of this encounter Visit Diagnoses Not on filedocumented in this encounter Care Teams Padding Gluer Relationship Specialty Start Date End Date Jay Howell MD [address] [place] [phone] PCP - General Emergency Medicine 11/12/23 documented as of this encounter
--- OUTSIDE RECORDS SUMMARY | 2025-10-13 13:32 | XMS_ITS | Encounter Summary ---
Author Organization [employer] ([place], [place], [place], [place], [place]) Address [address] [place] [address] Care Team Providers Care Insurance Adviser Name Role Phone Jay Howell MD Primary Care Provider [phone] Encounter Details Date Type Department Care Team (Late st Contact Info) Description 12/20/2018 Transcribed Document [facility] [place] [address] [place] [address] ProviderJessie MD [address] [place] [address] [phone] Social History Tobacco Use Types Packs/Day Years Used Date Smoking Tobacco: Never Assessed Comments Unknown Sex and Gender Information Value Date Recorded Sex Assigned at Not on file Legal Sex Female 7:30 PM CDT Gender Identity Not on file Sexual Orientation Not on file documented as of this encounter Miscellaneous Notes * Cerner Conversion Note - Historical ProviderMD - 12/20/2018 1:13 PM BEACH ATTENDANT Advance Directive Entered On: 12/20/2018 13:35 EST Performed On: 12/20/2018 13:13 EST by ARTHUR HONYECUTT Advance Directive Patient has Advance Directive *Q : No, patient requests assist formulating Advance Directive Patient Given Information about AD : Yes Advance Directive Comment : Provided advance directive info. ARTHUR HONEYCUTT - 12/20/2018 13:35 EST Electronically signed by Sivan [facility] Conversion Fund Accountant Cerner at 02/04/2023 1:55 PM CDT documented in this encounter Plan of Treatment Not on file documented as of this encounter Visit Diagnoses Not on filedocumented in this encounter Care Teams Insurance Adviser Relationship Specialty Start Date End Date Jay Howell MD [address] [place] [phone] PCP - General Emergency Medicine 11/12/23 documented as of this encounter
--- OUTSIDE RECORDS SUMMARY | 2025-10-13 13:32 | XMS_ITS | Encounter Summary ---
Author Organization [employer] ([place], [place], [place], [place], [place]) Address [address] [place] [address] Care Team Providers Care Leather Production Artisan Name Role Phone Jay Howell MD Primary Care Provider [phone] Encounter Details Date Type Department Care Team (Late st Contact Info) Description 12/14/2018 Transcribed Document [facility] [place] Medicine [address] [place] [address] ProviderJessie MD [address] [place] [address] [phone] Social History Tobacco Use Types Packs/Day Years Used Date Smoking Tobacco: Never Assessed Comments Unknown Sex and Gender Information Value Date Recorded Sex Assigned at Not on file Legal Sex Female 7:30 PM CDT Gender Identity Not on file Sexual Orientation Not on file documented as of this encounter Miscellaneous Notes * Cerner Conversion Note - Jessie ProviderMD - 12/14/2018 4:47 PM CHENILLE MACHINE OPERATOR CR Chest 2 Vws Ordered: 12/12/2018 Auth (Verified) Reason for Exam: cp 12/13/2018 11:39 12/14/2018 16:47 (FLORENTIN CAMARGO) No further action required documented in this encounter Plan of Treatment Not on file documented as of this encounter Visit Diagnoses Not on filedocumented in this encounter Care Teams Leather Production Artisan Relationship Specialty Start Date End Date Jay Howell MD [address] [place] [phone] PCP - General Emergency Medicine 11/12/23 documented as of this encounter
--- OUTSIDE RECORDS SUMMARY | 2025-10-13 13:32 | XMS_ITS | Encounter Summary ---
Author Organization [employer] ([place], [place], [place], [place], [place]) Address [address] [place] [address] Care Team Providers Care Huc Name Role Phone Jay Howell MD Primary Care Provider [phone] Encounter Details Date Type Department Care Team (Late st Contact Info) Description 12/20/2018 Transcribed Document [facility] [place] [address] [place] [address] ProviderJessie MD [address] [place] [address] [phone] Social History Tobacco Use Types Packs/Day Years Used Date Smoking Tobacco: Never Assessed Comments Unknown Sex and Gender Information Value Date Recorded Sex Assigned at Not on file Legal Sex Female 7:30 PM CDT Gender Identity Not on file Sexual Orientation Not on file documented as of this encounter Miscellaneous Notes * Cerner Conversion Note - Jessie ProviderMD - 12/20/2018 9:47 PM DENTAL ASSISTANT Rapid Response Team Documentation Entered On: [...] Admission Diagnosis : 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 Cardiac PUBLIC WORKS MANAGER notified. elevated blood pressure as well. nitro ordered and given. chest pain subsided. Patient Condition at End of Event : No S/S of Acute Distress Patient Disposition Post Event : No change in location/level of care Rapid Response Huc #1 : LO THEODORE RN BENGE, MELISSA V, RN - 12/20/2018 22:51 EST Rapid Response Systems Assessment Oxygen Therapy Mode : Nasal cannula Oxygen Flow Rate : 2 Liter/Min Cardiovascular Symptoms : Chest discomfort at rest Heart Rhythm : Regular Cardiac Rhythm : Normal sinus rhythm LO THEODORE RN - 12/20/2018 22:51 EST Electronically signed by [facility], [facility] Conversion Shale Processing Technician Cerner at 02/04/2023 2:10 PM CDT documented in this encounter Plan of Treatment Not on file documented as of this encounter Visit Diagnoses Not on filedocumented in this encounter Care Teams Huc Relationship Specialty Start Date End Date Jay Howell MD [address] [place] [phone] PCP - General Emergency Medicine 11/12/23 documented as of this encounter
--- OUTSIDE RECORDS SUMMARY | 2025-10-13 13:32 | XMS_ITS | Encounter Summary ---
Author Organization [employer] ([place], [place], [place], [place], [place]) Address [address] [place] [address] Care Team Providers Care Medical Social Worker Name Role Phone Jay Howell MD Primary Care Provider [phone] Encounter Details Date Type Department Care Team (Late st Contact Info) Description 12/21/2018 Transcribed Document [facility] [place] [facility] [address] [place] [address] ProviderJessie MD [address] [place] [address] Social History Tobacco Use Types Packs/Day Years Used Date Smoking Tobacco: Never Assessed Comments Unknown Sex and Gender Information Value Date Recorded Sex Assigned at Not on file Legal Sex Female 7:30 PM CDT Gender Identity Not on file Sexual Orientation Not on file documented as of this encounter Miscellaneous Notes * Cerner Conversion Note - Jessie ProviderMD - 12/21/2018 12:17 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 [address] , [place] [address] Patient Copy Patient Information: Name: SKYLER MONTOYA Current Date: 12/21/2018 12:17:17 : 1940 Patient Address: [address] [place] [phone] Patient Attending Physician: FREDY YAÑEZ MD-CAR Primary Care Provider: TARA CHEN (REF), -MED Primary Care Provider Discharge Diagnosis: CAD (coronary artery disease); DM (diabetes mellitus); Exertional angina; HLD (hyperlipidemia); HTN (hypertension); Hx of CABG; DANTE (obstructive sleep apnea); Paroxysmal A-fib Weight on Admission: 158 lb, 0 oz Comment: Follow-up Instructions: With: Address: When: WOO FELICIAEmil[facility] [address], [place] [address] Business (1) In 1 month 01/21/2019 With: Address: When: [facility] [address], [address] [place], [place] [id number] Business (1) Within 2 to 5 weeks [...] What foods can I eat? GrainsBreads, including Tajik, white, jie, wheat, raisin, rye, oatmeal, and Cook Islander. Tortillas that are neither fried nor made with lard or trans fat. Low-fat rolls, including hotdog and hamburger buns and Dutch muffins. Biscuits. Muffins. Waffles. Pancakes. Light popcorn. [...] cottage cheese. Whole-milk cheeses, including blue (fredo), [place], Brie, Nate, Georgian, Havarti, East Timorese, cheddar, Camembert, and [place]lake. Whole or 2% milk that is liquid, [...] that has suet, meat fat, or shortening. [place] butter, hydrogenated oils, palm oil, coconut oil, [...] 12/25/2012 Document Revised: 03/10/2017 Document Reviewed: 02/04/2015 [employer] Interactive Patient Education ? 2017 [employer] Groin Site Care Refer to this [...] 11/05/2011 Document Revised: 12/25/2012 Document Reviewed: 11/05/2011 [facility] Patient Information ?2013 [employer]. Angiogram An angiogram, also called angiography, is [...] including vitamins, herbs, eye drops, creams, and rrqh-soh-tlmpjjv medicines. ??? Any problems you or family [...] 07/13/2006 Document Revised: 03/16/2017 Document Reviewed: 03/06/2014 [employer] Interactive Patient Education ? 2017 [employer]. Medication Leaflets: valsartan (elin BAUTISTA foster) Rivka [...] valsartan; ?? if you are on a ivb-ygho-bxlz; ?? if you are dehydrated; or ?? [...] may report side effects to FDA at 3-937-XNQ-1347. What other drugs will affect valsartan? Tell [...] may interact with valsartan, including prescription and xlsb-qns-zevvgfh medicines, vitamins, and herbal products. Not all [...] to ensure that the information provided by [employer]. ('[employer]') is accurate, up-to-date, and complete, but no guarantee is made to that effect. Drug information contained herein may be time sensitive. [employer] information has been compiled for use by healthcare practitioners and consumers in the [place] and therefore [employer] does not warrant that uses outside of the [place] are appropriate, unless specifically indicated otherwise. Andre Phillipes drug information does not endorse drugs, diagnose patients or recommend therapy. [employer] drug information is an informational resource designed [...] effective or appropriate for any given patient. [employer] does not assume any responsibility for any aspect of healthcare administered with the aid of information [employer] provides. The information contained herein is not intended to cover all possible uses, directions, precautions, warnings, drug interactions, allergic reactions, or adverse effects. If you have questions about the drugs you are taking, check with your doctor, nurse or pharmacist. Copyright 8388-8122 [employer]. Version: 16.05. Revision Date: 09/08/2016. hydralazine (bob [...] may report side effects to FDA at 7-696-SFU-7301. What other drugs will affect hydralazine? Tell your doctor about all your current medicines and any you start or stop using, especially: ? diazoxide (an injectable blood pressure medication); or ?? an MAO inhibitor--isocarboxazid, linezolid, methylene blue injection, phenelzine, rasagiline, selegiline, tranylcypromine, and others. This list is not complete. Other drugs may interact with hydralazine, including prescription and zrnk-pbp-eyrcbof medicines, vitamins, and herbal products. Not all [...] to ensure that the information provided by [employer]. ('[employer]') is accurate, up-to-date, and complete, but no guarantee is made to that effect. Drug information contained herein may be time sensitive. [employer] information has been compiled for use by healthcare practitioners and consumers in the [place] and therefore [employer] does not warrant that uses outside of the [place] are appropriate, unless specifically indicated otherwise. [employer]'s drug information does not endorse drugs, diagnose patients or recommend therapy. Andre Phillipes drug information is an informational resource designed [...] effective or appropriate for any given patient. [employer] does not assume any responsibility for any aspect of healthcare administered with the aid of information [employer] provides. The information contained herein is not intended to cover all possible uses, directions, precautions, warnings, drug interactions, allergic reactions, or adverse effects. If you have questions about the drugs you are taking, check with your doctor, nurse or pharmacist. Copyright 8873-1587 [employer]. Version: 5.01. Revision Date: 10/26/2017. amlodipine (am [facility] What is the most important [...] may report side effects to FDA at 7-566-GFC-9544. What other drugs will affect amlodipine? Tell your doctor about all your current medicines and any you start or stop using, especially: ? nitroglycerin; ?? simvastatin (Zocor, Simcor, Vytorin); or ?? any other heart or blood pressure medications. This list is not complete. Other drugs may interact with amlodipine, including prescription and mqmz-vaw-ytdetxq medicines, vitamins, and herbal products. Not all [...] to ensure that the information provided by [employer]. ('[employer]') is accurate, up-to-date, and complete, but no guarantee is made to that effect. Drug information contained herein may be time sensitive. [employer] information has been compiled for use by healthcare practitioners and consumers in the [place] and therefore [employer] does not warrant that uses outside of the [place] are appropriate, unless specifically indicated otherwise. Andre Phillipes drug information does not endorse drugs, diagnose patients or recommend therapy. Andre Phillipes drug information is an informational resource designed [...] effective or appropriate for any given patient. [employer] does not assume any responsibility for any aspect of healthcare administered with the aid of information [employer] provides. The information contained herein is not intended to cover all possible uses, directions, precautions, warnings, drug interactions, allergic reactions, or adverse effects. If you have questions about the drugs you are taking, check with your doctor, nurse or pharmacist. Copyright 6579-6707 [employer]. Version: 14.01. Revision Date: 01/24/2017. clopidogrel (kloe [...] may report side effects to FDA at 3-809-JZD-2627. What other drugs will affect clopidogrel? Certain other medicines may increase your risk of bleeding, including aspirin. Avoid taking aspirin unless your doctor tells you to. Tell your doctor about all your other medicines, especially: ? any other medicines to treat or prevent blood clots; ?? a stomach acid power transformer assembler such as omeprazole, Nexium, or Prilosec; ?? an antidepressant; ?? an opioid medication; ?? a blood thinner--warfarin, Coumadin, Jantoven; or ?? NSAIDs (nonsteroidal anti-inflammatory drugs)--ibuprofen (Advil, Motrin), naproxen (Aleve), celecoxib, diclofenac, indomethacin, meloxicam, and others. This list is not complete. Other drugs may affect clopidogrel, including prescription and mtft-bdf-ewihxmg medicines, vitamins, and herbal products. Not all [...] to ensure that the information provided by [employer]. ('[employer]') is accurate, up-to-date, and complete, but no guarantee is made to that effect. Drug information contained herein may be time sensitive. [employer] information has been compiled for use by healthcare practitioners and consumers in the [place] and therefore [employer] does not warrant that uses outside of the [place] are appropriate, unless specifically indicated otherwise. Andre Phillipes drug information does not endorse drugs, diagnose patients or recommend therapy. Andre Phillipes drug information is an informational resource designed [...] effective or appropriate for any given patient. [employer] does not assume any responsibility for any aspect of healthcare administered with the aid of information [employer] provides. The information contained herein is not intended to cover all possible uses, directions, precautions, warnings, drug interactions, allergic reactions, or adverse effects. If you have questions about the drugs you are taking, check with your doctor, nurse or pharmacist. Copyright 5365-4123 [employer]. Version: 15.01. Revision Date: 08/07/2018. ranolazine (ra [...] following drugs: ? clarithromycin; ?? nefazodone; ?? [place]'s wort; ?? antifungal medicine--itraconazole, ketoconazole; ?? HIV [...] may report side effects to FDA at 8-642-DZJ-3951. What other drugs will affect ranolazine? Many [...] interact with ranolazine. This includes prescription and vhpn-blh-lcjrtgy medicines, vitamins, and herbal products. Give a [...] to ensure that the information provided by [employer]. ('[employer]') is accurate, up-to-date, and complete, but no guarantee is made to that effect. Drug information contained herein may be time sensitive. [employer] information has been compiled for use by healthcare practitioners and consumers in the [place] and therefore [employer] does not warrant that uses outside of the [place] are appropriate, unless specifically indicated otherwise. [employer]'s drug information does not endorse drugs, diagnose patients or recommend therapy. Andre Phillipes drug information is an informational resource designed [...] effective or appropriate for any given patient. [employer] does not assume any responsibility for any aspect of healthcare administered with the aid of information [employer] provides. The information contained herein is not intended to cover all possible uses, directions, precautions, warnings, drug interactions, allergic reactions, or adverse effects. If you have questions about the drugs you are taking, check with your doctor, nurse or pharmacist. Copyright 6606-5885 [employer]. Version: 11.. Revision Date: 12/04/2015. CIGARETTE SMOKING: The facts are clear, cigarette smoking will shorten your life. Smoking can cause many illnesses along the way. As a healthcare provider, we recommend that you stop smoking. Assistance with quitting is available by contacting 8-221-ZXUJ-NOW. This is a free resource providing counseling, [...] Be sure to sign up for the [employer] patient portal, which gives you 09/05 access to your medical information ??? including these discharge instructions ??? using your computer, smartphone, or tablet. Just go to [employer] to get started. Questions? Call . [facility] would like to thank you for allowing us to assist you with your healthcare needs. MICHELE Skaggs JUDY D, (or sales representative consultant) have received the above patient education materials/instructions and have verbalized understanding: Patient Signature _ Date/Time Patient Drafter Tool Design Signature (if needed) Date/Time Clinician/Hospital Drafter Tool Design Signature (if needed) Date/Time Electronically signed by Sivan, [facility] Conversion Rehabilitation Clerk Wilmaner at 02/04/2023 2:01 PM CDT documented in this encounter Plan of Treatment Not on file documented as of this encounter Visit Diagnoses Not on filedocumented in this encounter Care Teams Medical Social Worker Relationship Specialty Start Date End Date Jay Howell MD [address] [place] [phone] PCP - General Emergency Medicine 11/12/23 documented as of this encounter
--- OUTSIDE RECORDS SUMMARY | 2025-10-13 13:32 | XMS_ITS | Encounter Summary ---
Author Organization [employer] ([place], [place], [place], [place], [place]) Address [address] [place] [address] Care Team Providers Care Public Information Relations Manager Name Role Phone Jay Howell MD Primary Care Provider [phone] Encounter Details Date Type Department Care Team (Late st Contact Info) Description 08/28/[address] 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 Patient: SKYLER MONTOYA Age: 79 years [...] level of muscle per surgery *Operation RIGHT MACHINE JOINER CEMENTER access - ultrasound guided Aortogram with LEFT lower extremity run-off LEFT PT angioplasty ([id number] Nanocross) LEFT peroneal angioplasty ([id number] Nanocross) RIGHT MACHINE JOINER CEMENTER closure (Angioseal) LEFT leg debridement 08/28/20 seen [...] Level 8.8 mg/dL 08/27/2020 03:40 MICRO: ACC: [id number] ORDER: Culture Wound and Stain DATE: 08/25/2020 05:00 SOURCE: Wound SITE: Leg Lower L Reports Final 08/28/2020 08:57 No growth Pre 08/26/2020 06:23 No growth GS 08/25/2020 07:26 No organisms seen. Few White Blood Cells Rare epithelial cells == ACC: [id number] ORDER: Culture AFB and Stain DATE: 08/26/2020 13:56 SOURCE: Surgical Swab SITE: Leg Lower L Reports AFS 08/27/2020 13:07 No Acid Fast Bacilli seen == ACC: [id number] ORDER: Culture Anaerobic DATE: 08/26/2020 13:56 SOURCE: Surgical Swab SITE: Leg Lower L Reports Pre 08/28/2020 07:01 No Anaerobic growth Pre 08/27/2020 07:47 Culture in progress == ACC: [id number] ORDER: Culture Wound and Stain DATE: 08/26/2020 15:23 SOURCE: Surgical Swab SITE: Leg Lower L Reports Pre 08/27/2020 07:14 No growth GS 08/26/2020 18:13 Few White Blood Cells No organisms seen. == ACC: [id number] ORDER: Culture Fungus DATE: 08/26/2020 13:56 SOURCE: Surgical Swab SITE: Leg Lower L Reports SINDI 08/26/2020 16:09 No Fungal elements seen == ACC: [id number] ORDER: Culture Blood DATE: 08/25/2020 05:01 SOURCE: Blood SITE: Reports Pre 08/28/2020 06:01 No growth at 3 days. Pre 08/27/2020 06:01 No growth at 2 days. Pre 08/26/2020 06:01 No growth at 1 day. Pre 08/25/2020 23:02 Culture less than 24 Hrs old == ACC: [id number] ORDER: Culture Blood DATE: 08/25/2020 05:01 SOURCE: Blood SITE: Reports Pre 08/28/2020 06:01 No growth at 3 days. Pre 08/27/2020 06:01 No growth at 2 days. Pre 08/26/2020 06:01 No growth at 1 day. Pre 08/25/2020 23:02 Culture less than 24 Hrs old == Radiology Results (Last 48 hours) [id number] -- 08/25/2020 05:53 CT Abdomen WO W [...] in this encounter Care Teams Public Information Relations Manager Relationship Specialty Start Date End Date Jay Howell MD [address] [place] [phone] PCP - General Emergency Medicine 11/12/23 documented as of this encounter
--- OUTSIDE RECORDS SUMMARY | 2025-10-13 13:32 | XMS_ITS | Encounter Summary ---
Author Organization [employer] ([place], [place], [place], [place], [place]) Address [address] [place] [address] Care Team Providers Care Fisher Clam Name Role Phone Jay Howell MD Primary Care Provider [phone] Encounter Details Date Type Department Care Team (Late st Contact Info) Description 12/21/2018 Transcribed Document [facility] [place] Family Medicine [address] [place] [address] ProviderJessie MD [address] [place] [address] Social History Tobacco Use Types Packs/Day Years Used Date Smoking Tobacco: Never Assessed Comments Unknown Sex and Gender Information Value Date Recorded Sex Assigned at Not on file Legal Sex Female 7:30 PM CDT Gender Identity Not on file Sexual Orientation Not on file documented as of this encounter Miscellaneous Notes * Cerner Conversion Note - Jessie ProviderMD - 12/21/2018 11:50 AM 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 [address] , [place] [address] Patient Copy Patient Information: Name: SKYLER MONTOYA Current Date: 12/21/2018 11:50:40 : 1940 Patient Address: [address] [place] [id number] Patient Attending Physician: FREDY YAÑEZ MD-CAR Primary Care Provider: TARA CHEN (REF), -MED Primary Care Provider Discharge Diagnosis: CAD (coronary artery disease); DM (diabetes mellitus); Exertional angina; HLD (hyperlipidemia); HTN (hypertension); Hx of CABG; DANTE (obstructive sleep apnea); Paroxysmal A-fib Weight on Admission: 158 lb, 0 oz Comment: Follow-up Instructions: With: Address: When: [facility] [address], [place] [address] Business (1) In 1 month 01/21/2019 With: Address: When: [facility] [address], [address] [place], [place] [id number] Business (1) Within 2 to 5 weeks [...] What foods can I eat? GrainsBreads, including Sinhala, white, jie, wheat, raisin, rye, oatmeal, and Solomon Islander. Tortillas that are neither fried nor made with lard or trans fat. Low-fat rolls, including hotdog and hamburger buns and [place] Citizen muffins. Biscuits. Muffins. Waffles. Pancakes. Light popcorn. Whole-grain cereals. Flatbread. [place] toast. Pretzels. Breadsticks. Rusks. Low-fat snacks. Low-fat [...] cottage cheese. Whole-milk cheeses, including blue (fredo), [place] Armand, Brie, Nate, Jamaican, Havarti, Jamaican, cheddar, Camembert, and Hensley. Whole or 2% milk that is liquid, [...] has suet, meat fat, or shortening. [place] butter, hydrogenated oils, palm oil, coconut oil, [...] can cause a heart attack (myocardial infarction, CT). CAD is a leading cause of for [...] 12/25/2012 Document Revised: 03/10/2017 Document Reviewed: 02/04/2015 Ornis Interactive Patient Education ? 2017 [employer]. Groin Site Care Refer to this [...] Document Reviewed: 11/05/2011 ExitCare? Patient Information ?2013 [place]. Angiogram An angiogram, also called angiography, is [...] including vitamins, herbs, eye drops, creams, and kmda-esu-iljxrcc medicines. ??? Any problems you or family [...] 03/06/2014 Elsevier Interactive Patient Education ? 2017 [employer]Amplitude Inc. Medication Leaflets: valsartan (elin LILY foster) [...] valsartan; ?? if you are on a ivk-govm-pbmd; ?? if you are dehydrated; or ?? [...] may report side effects to FDA at 0-264-GAT-5269. What other drugs will affect valsartan? Tell [...] may interact with valsartan, including prescription and dmmt-akj-xcsjpky medicines, vitamins, and herbal products. Not all [...] to ensure that the information provided by ItsMyURLs. ('Multum') is accurate, up-to-date, and complete, but no guarantee is made to that effect. Drug information contained herein may be time sensitive. Spime information has been compiled for use by healthcare practitioners and consumers in the [place] and therefore Well Doneum does not warrant that uses outside of the [place] are appropriate, unless specifically indicated otherwise. Spime's drug information does not endorse drugs, diagnose patients or recommend therapy. Spime's drug information is an informational resource designed [...] appropriate for any given patient. [facility] does not assume any responsibility for any aspect of healthcare administered with the aid of information [facility] provides. The information contained herein is not intended to cover all possible uses, directions, precautions, warnings, drug interactions, allergic reactions, or adverse effects. If you have questions about the drugs you are taking, check with your doctor, nurse or pharmacist. Copyright 9695-4807 [facility]. Version: 16.05. Revision Date: 09/08/2016. hydralazine (bob [...] may report side effects to FDA at 3-556-BTV-4646. What other drugs will affect hydralazine? Tell your doctor about all your current medicines and any you start or stop using, especially: ? diazoxide (an injectable blood pressure medication); or ?? an MAO inhibitor--isocarboxazid, linezolid, methylene blue injection, phenelzine, rasagiline, selegiline, tranylcypromine, and others. This list is not complete. Other drugs may interact with hydralazine, including prescription and kmre-vxc-euyvcbg medicines, vitamins, and herbal products. Not all [...] to ensure that the information provided by ItsMyURLs. ('Multum') is accurate, up-to-date, and complete, but no guarantee is made to that effect. Drug information contained herein may be time sensitive. Spime information has been compiled for use by healthcare practitioners and consumers in the [place] and therefore Spime does not warrant that uses outside of the [place] are appropriate, unless specifically indicated otherwise. Spime's drug information does not endorse drugs, diagnose patients or recommend therapy. CIDCOs drug information is an informational resource designed [...] effective or appropriate for any given patient. Spime does not assume any responsibility for any aspect of healthcare administered with the aid of information Spime provides. The information contained herein is not intended to cover all possible uses, directions, precautions, warnings, drug interactions, allergic reactions, or adverse effects. If you have questions about the drugs you are taking, check with your doctor, nurse or pharmacist. Copyright 8782-2862 ItsMyURLs. Version: 5.01. Revision Date: 10/26/2017. amlodipine (am [...] may report side effects to FDA at 7-713-ZDM-1136. What other drugs will affect amlodipine? Tell your doctor about all your current medicines and any you start or stop using, especially: ? nitroglycerin; ?? simvastatin (Zocor, Simcor, Vytorin); or ?? any other heart or blood pressure medications. This list is not complete. Other drugs may interact with amlodipine, including prescription and taov-dby-kblxbvd medicines, vitamins, and herbal products. Not all [...] to ensure that the information provided by ItsMyURLs. ('Multum') is accurate, up-to-date, and complete, but no guarantee is made to that effect. Drug information contained herein may be time sensitive. Spime information has been compiled for use by healthcare practitioners and consumers in the [place] and therefore Spime does not warrant that uses outside of the [place] are appropriate, unless specifically indicated otherwise. CIDCOs drug information does not endorse drugs, diagnose patients or recommend therapy. CIDCOs drug information is an informational resource designed [...] effective or appropriate for any given patient. Spime does not assume any responsibility for any aspect of healthcare administered with the aid of information Spime provides. The information contained herein is not intended to cover all possible uses, directions, precautions, warnings, drug interactions, allergic reactions, or adverse effects. If you have questions about the drugs you are taking, check with your doctor, nurse or pharmacist. Copyright 4096-0965 ItsMyURLs. Version: 14.01. Revision Date: 01/24/2017. clopidogrel (kloe [...] may report side effects to FDA at 5-298-JZP-2918. What other drugs will affect clopidogrel? Certain other medicines may increase your risk of bleeding, including aspirin. Avoid taking aspirin unless your doctor tells you to. Tell your doctor about all your other medicines, especially: ? any other medicines to treat or prevent blood clots; ?? a stomach acid carbon plant grinder such as omeprazole, Nexium, or Prilosec; ?? an antidepressant; ?? an opioid medication; ?? a blood thinner--warfarin, Coumadin, Jantoven; or ?? NSAIDs (nonsteroidal anti-inflammatory drugs)--ibuprofen (Advil, Motrin), naproxen (Aleve), celecoxib, diclofenac, indomethacin, meloxicam, and others. This list is not complete. Other drugs may affect clopidogrel, including prescription and rlud-fhi-khtjjdb medicines, vitamins, and herbal products. Not all [...] to ensure that the information provided by ItsMyURLs. ('Multum') is accurate, up-to-date, and complete, but no guarantee is made to that effect. Drug information contained herein may be time sensitive. Spime information has been compiled for use by healthcare practitioners and consumers in the [place] and therefore Spime does not warrant that uses outside of the [place] are appropriate, unless specifically indicated otherwise. CIDCOs drug information does not endorse drugs, diagnose patients or recommend therapy. CIDCOs drug information is an informational resource designed [...] effective or appropriate for any given patient. Spime does not assume any responsibility for any aspect of healthcare administered with the aid of information Spime provides. The information contained herein is not intended to cover all possible uses, directions, precautions, warnings, drug interactions, allergic reactions, or adverse effects. If you have questions about the drugs you are taking, check with your doctor, nurse or pharmacist. Copyright 9554-4746 ItsMyURLs. Version: 15.. Revision Date: 08/07/2018. ranolazine (ra [...] may report side effects to FDA at 4-290-PEA-9541. What other drugs will affect ranolazine? Many [...] interact with ranolazine. This includes prescription and hxmp-vfg-rstzuzj medicines, vitamins, and herbal products. Give a [...] to ensure that the information provided by ItsMyURLs. ('Multum') is accurate, up-to-date, and complete, but no guarantee is made to that effect. Drug information contained herein may be time sensitive. Spime information has been compiled for use by healthcare practitioners and consumers in the [place] and therefore Spime does not warrant that uses outside of the [place] are appropriate, unless specifically indicated otherwise. CIDCOs drug information does not endorse drugs, diagnose patients or recommend therapy. CIDCOs drug information is an informational resource designed [...] effective or appropriate for any given patient. Spime does not assume any responsibility for any aspect of healthcare administered with the aid of information Spime provides. The information contained herein is not intended to cover all possible uses, directions, precautions, warnings, drug interactions, allergic reactions, or adverse effects. If you have questions about the drugs you are taking, check with your doctor, nurse or pharmacist. Copyright 3946-5760 ItsMyURLs. Version: .. Revision Date: 12/04/2015. CIGARETTE SMOKING: The facts are clear, cigarette smoking will shorten your life. Smoking can cause many illnesses along the way. As a healthcare provider, we recommend that you stop smoking. Assistance with quitting is available by contacting 4-283-VEPV-NOW. This is a free resource providing counseling, [...] Be sure to sign up for the [facility] patient portal, which gives you 09/05 access to your medical information ??? including these discharge instructions ??? using your computer, smartphone, or tablet. Just go to [employer] to get started. Questions? Call . [facility] would like to thank you for allowing us to assist you with your healthcare needs. MICHELE Skaggs JUDY D, (or sales and marketing representative) have received the above patient education materials/instructions and have verbalized understanding: Patient Signature _ Date/Time Patient Potato Bucker Signature (if needed) Date/Time Clinician/Hospital Potato Bucker Signature (if needed) Date/Time Electronically signed by Sivan, [facility] Conversion Business Controller Cerner at 02/04/2023 1:57 PM CDT documented in this encounter Plan of Treatment Not on file documented as of this encounter Visit Diagnoses Not on filedocumented in this encounter Care Teams Fisher Clam Relationship Specialty Start Date End Date Jay Howell MD [address] [place] [phone] PCP - General Emergency Medicine 11/12/23 documented as of this encounter
--- OUTSIDE RECORDS SUMMARY | 2025-10-13 13:32 | XMS_ITS | Encounter Summary ---
Author Organization [employer] ([place], [place], [place], [place], [place]) Address [address] [place] [address] Care Team Providers Care Executive Director Of Marketing Name Role Phone Jay Howell MD Primary Care Provider [phone] Encounter Details Date Type Department Care Team (Late st Contact Info) Description 12/21/2018 Transcribed Document [facility] [place] Family Medicine [address] [place] [address] ProviderJessie MD [address] [place] [address] Social History Tobacco Use Types Packs/Day Years Used Date Smoking Tobacco: Never Assessed Comments Unknown Sex and Gender Information Value Date Recorded Sex Assigned at Not on file Legal Sex Female 7:30 PM CDT Gender Identity Not on file Sexual Orientation Not on file documented as of this encounter Miscellaneous Notes * Cerner Conversion Note - Jessie Yuen MD - 12/21/2018 7:18 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 Integumentary: Warm, Dry, Bruning. Neurologic: Alert, Oriented. Psychiatric: Cooperative, Appropriate mood & affect. Results Review Telemetry DEC 21 04:17 140 110 10 / H 153 3.8 22 0.70 \ DEC 21 04:17 \ 11.5 / 7.2 L 150 / 35.7 \ [facility] 12/20/18; Dr. Fredy Pacheco TECHNIQUE: A 5/6-Irish sheath placed in the right femoral artery. Right iliac artery angiography was performed using a JR4 diagnostic catheter due to difficulty in advancing safety J-wire across the proximal right common iliac artery. Angiography revealed patent iliac artery with a kink proximally. There is no pressure gradient across the kink. The short 6-Irish sheath was switched out for a 25 cm 6-Irish Arrow sheath with the sheath tip into the abdominal aorta for angiography and percutaneous intervention. JL4, JR4 diagnostic catheters were used for selective angiography of the afognak vessels. JR4 diagnostic catheter was used for selective angiography of the bypass grafts. A 6-Irish pigtail catheter was advanced in the left [...] 162 mg of aspirin in the labor representative. She was given Aggrastat bolus. Patient received [...] filedocumented in this encounter Care Teams Executive Director Of Marketing Relationship Specialty Start Date End Date Jay Howell MD [address] [place] [phone] PCP - General Emergency Medicine 11/12/23 documented as of this encounter
--- OUTSIDE RECORDS SUMMARY | 2025-10-13 13:32 | XMS_ITS | Encounter Summary ---
Author Organization [employer] ([place], [place], [place], [place], [place]) Address [address] [place] [address] Care Team Providers Care Head Bellhop Captain Name Role Phone Jay Howell MD Primary Care Provider [phone] Encounter Details Date Type Department Care Team (Late st Contact Info) Description 12/20/2018 Transcribed Document [facility] [place] Family Medicine [address] [place] [address] ProviderJessie MD [address] [place] [phone] Social History Tobacco Use Types Packs/Day Years Used Date Smoking Tobacco: Never Assessed Comments Unknown Sex and Gender Information Value Date Recorded Sex Assigned at Not on file Legal Sex Female 7:30 PM CDT Gender Identity Not on file Sexual Orientation Not on file documented as of this encounter Miscellaneous Notes * Cerner Conversion Note - Jessie ProviderMD - 12/20/2018 9:55 PM ENROLLMENT NURSE Pain Assessment Entered On: 12/21/2018 4:53 EST [...] filedocumented in this encounter Care Teams Head Bellhop Captain Relationship Specialty Start Date End Date Jay Howell MD [address] [place] [phone] PCP - General Emergency Medicine 11/12/23 documented as of this encounter
--- OUTSIDE RECORDS SUMMARY | 2025-10-13 13:32 | XMS_ITS | Encounter Summary ---
Author Organization [employer] ([place], [place], [place], [place], [place]) Address [address] [place] [address] Care Team Providers Care Syrup Blender Name Role Phone Jay Howell MD Primary Care Provider [phone] Encounter Details Date Type Department Care Team (Late st Contact Info) Description 12/20/2018 Transcribed Document [facility] [place] [address] [place] [address] ProviderJessie MD [address] [place] [phone] Social History Tobacco Use Types Packs/Day Years Used Date Smoking Tobacco: Never Assessed Comments Unknown Sex and Gender Information Value Date Recorded Sex Assigned at Not on file Legal Sex Female 7:30 PM CDT Gender Identity Not on file Sexual Orientation Not on file documented as of this encounter Miscellaneous Notes * Cerner Conversion Note - Jessie ProviderMD - 12/20/2018 3:14 PM HEAD WORKER Pain Assessment Entered On: 12/21/2018 4:53 [...] form. Electronically signed by Gayle Finnegan Conversion Optical Instrument Specialist Cerner at 02/04/2023 2:13 PM CDT documented in this encounter Plan of Treatment Not on file documented as of this encounter Visit Diagnoses Not on filedocumented in this encounter Care Teams Syrup Blender Relationship Specialty Start Date End Date Jay Howell MD [address] [place] [phone] PCP - General Emergency Medicine 11/12/23 documented as of this encounter
--- OUTSIDE RECORDS SUMMARY | 2025-10-13 13:32 | XMS_ITS | Encounter Summary ---
Author Organization [place] [address] Care Team Providers Care Waste Oil Pumper Name Role Phone No Pcp, Per Patient Primary Care Provider Evelyne prabhakar Reason for Visit * Reason Onset Date Comments Procedure 08/21/2025 Angiogram Detail s Encounter Details Date Type Department Care Team ([facility] Contact Info) Description 08/21/2025 Telephone SEP Vascular Surg Edg [address] [facility] [address] [place] [address] Mary Lombardi MA Procedure (Angiogram Details ) Social History Tobacco Use Types Packs/Day Years Used Date Smoking Tobacco: Former Cigarettes Q uit: 1991 Passive Smoke Exposure: Past Smokeless Tobacco: Never Alcohol Use Standard Drinks/Week Comments Not Currently 0 (1 standard drink = 0.6 oz pur e alcohol) [facility] Utilities Answer Date Recorded In the past 12 months has [employer], gas, oil, or water [employer] threatened to shut off services in your home? No 06/23/2025 Overall Financial Resource Strain (CARDIA) Answe r Date Recorded How hard is it for you to pa y for the very basics like food, housing, medical care, and heating? Not very hard 06/23/2025 PHQ-2 Answer Date Recorded PHQ-2 Total Score 0 06/23/2025 [facility] [place] of Occupat ional Health - Occupational Stress [...] [facility] IP Transportation Answer D ate [...] 3:18 PM EST Spoke with Makenzie at [place]. [phone]. Let her know I would be faxing Miladis's angiogram information to her at [phone]. She said she would call iMladis's son since we only have her as an emergency contact. He will be providing transport. Fax confirmation receipt rec'd. The following arrangements have been made for your Angiogram: Hospital: [facility] Date: 08/28/2025 Time: 12:00 PM Arrival Time: [...] documented as of this encounter Care Teams Waste Oil Pumper Relationship Specialty Start Date End Date No Pcp, Per Patient PCP - General 06/04/24 documented as of this encounter
--- OUTSIDE RECORDS SUMMARY | 2025-10-13 13:32 | XMS_ITS | Encounter Summary ---
Author Organization [employer] ([place], [place], [place], [place], [place]) Address [address] [place] [address] Care Team Providers Care Pipe Fitter Name Role Phone Jay Howell MD Primary Care Provider [phone] Encounter Details Date Type Department Care Team (Late st Contact Info) Description 08/28/2020 Transcribed Document [facility] [place] Family Medicine [address] [place] [address] ProviderJessie MD [address] [place] [address] [phone] Social History Tobacco Use Types Packs/Day Years Used Date Smoking Tobacco: Never Assessed Comments Unknown Sex and Gender Information Value Date Recorded Sex Assigned at Not on file Legal Sex Female 7:30 PM CDT Gender Identity Not on file Sexual Orientation Not on file documented as of this encounter Miscellaneous Notes * Cerner Conversion Note - Historical ProviderMD - 08/28/2020 10:16 AM DELIVERY AND MAIL SORTER Attempt to Treat, PT Entered On: 08/28/2020 [...] 08/28/2020 10:27 EST Electronically signed by Sivan [facility] Conversion Raw Stock Machine Feeder Cerner at 02/04/2023 2:14 PM CDT documented in this encounter Plan of Treatment Not on file documented as of this encounter Visit Diagnoses Not on filedocumented in this encounter Care Teams Pipe Fitter Relationship Specialty Start Date End Date Jay Howell MD [address] [place] [phone] PCP - General Emergency Medicine 11/12/23 documented as of this encounter
--- OUTSIDE RECORDS SUMMARY | 2025-10-13 13:32 | XMS_ITS | Encounter Summary ---
Author Organization [employer] ([place], [place], [place], [place], [place]) Address [address] [place] [address] Care Team Providers Care Ribbon Inker Name Role Phone Jay Howell MD Primary Care Provider [phone] Encounter Details Date Type Department Care Team (Late st Contact Info) Description 12/21/2018 Transcribed Document [facility] [place] Family Medicine [address] [place] [address] ProviderJessie MD [address] [place] [address] Social History Tobacco Use Types Packs/Day Years Used Date Smoking Tobacco: Never Assessed Comments Unknown Sex and Gender Information Value Date Recorded Sex Assigned at Not on file Legal Sex Female 7:30 PM CDT Gender Identity Not on file Sexual Orientation Not on file documented as of this encounter Miscellaneous Notes * Cerner Conversion Note - Jessie ProviderMD - 12/21/2018 11:48 AM BACKUP OPERATOR [address] , [place] [address] Patient Copy Patient Information: Name: SKYLER MONTOYA Current Date: 12/21/2018 11:48:11 : 1940 Patient Address: [address] [place] [phone] Patient Attending Physician: FREDY YAÑEZ MD-CAR Primary Care Provider: TARA CHEN (REF), -MED Primary Care Provider Discharge Diagnosis: CAD (coronary artery disease); DM (diabetes mellitus); Exertional angina; HLD (hyperlipidemia); HTN (hypertension); Hx of CABG; DANTE (obstructive sleep apnea); Paroxysmal A-fib Weight on Admission: 158 lb, 0 oz Comment: Follow-up Instructions: With: Address: When: [facility] [address], [place] [address] Business (1) In 1 month 01/21/2019 With: Address: When: [facility] [address], [address] [place], [place] [id number] Business (1) Within 2 to 5 weeks [...] What foods can I eat? GrainsBreads, including Turkmen, white, jie, wheat, raisin, rye, oatmeal, and Cuban. Tortillas that are neither fried nor made with lard or trans fat. Low-fat rolls, including hotdog and hamburger buns and Solomon Islander muffins. Biscuits. Muffins. Waffles. Pancakes. Light popcorn. Whole-grain cereals. Flatbread. [place] toast. Pretzels. Breadsticks. Rusks. Low-fat snacks. Low-fat [...] cottage cheese. Whole-milk cheeses, including blue (fredo), [place] Armand, Brie, Nate, Armenian, Havarti, Argentine, cheddar, Camembert, and [place]. Whole or 2% milk that is liquid, [...] that has suet, meat fat, or shortening. Valle[place]os butter, hydrogenated oils, palm oil, coconut oil, [...] can cause a heart attack (myocardial infarction, [place]). CAD is a leading cause of for [...] 12/25/2012 Document Revised: 03/10/2017 Document Reviewed: 02/04/2015 [employer] Interactive Patient Education ? 2017 [employer] Groin Site Care Refer to this [...] Document Reviewed: 11/05/2011 ExitCare? Patient Information ?2013 [employer]. Angiogram An angiogram, also called angiography, is [...] including vitamins, herbs, eye drops, creams, and gshy-fqa-wsnyqjd medicines. ??? Any problems you or family [...] 03/06/2014 Elsevier Interactive Patient Education ? 2017 [employer] Medication Leaflets: valsartan (elin LILY foster) [...] valsartan; ?? if you are on a ohm-qshu-gskd; ?? if you are dehydrated; or ?? [...] may report side effects to FDA at 2-563-HCZ-1253. What other drugs will affect valsartan? Tell [...] may interact with valsartan, including prescription and marj-cgt-qfardsa medicines, vitamins, and herbal products. Not all [...] to ensure that the information provided by [employer]. ('[employer]') is accurate, up-to-date, and complete, but no guarantee is made to that effect. Drug information contained herein may be time sensitive. [employer] information has been compiled for use by healthcare practitioners and consumers in the [place] and therefore [employer] does not warrant that uses outside of the [place] are appropriate, unless specifically indicated otherwise. [employer]'s drug information does not endorse drugs, diagnose patients or recommend therapy. [employer]'s drug information is an informational resource designed [...] effective or appropriate for any given patient. [facility] does not assume any responsibility for any aspect of healthcare administered with the aid of information [facility] provides. The information contained herein is not intended to cover all possible uses, directions, precautions, warnings, drug interactions, allergic reactions, or adverse effects. If you have questions about the drugs you are taking, check with your doctor, nurse or pharmacist. Copyright 2955-9273 [facility]. Version: 16.05. Revision Date: 09/08/2016. hydralazine (bob [...] may report side effects to FDA at 4-667-PPG-7994. What other drugs will affect hydralazine? Tell your doctor about all your current medicines and any you start or stop using, especially: ? diazoxide (an injectable blood pressure medication); or ?? an MAO inhibitor--isocarboxazid, linezolid, methylene blue injection, phenelzine, rasagiline, selegiline, tranylcypromine, and others. This list is not complete. Other drugs may interact with hydralazine, including prescription and iyrg-iui-sleezup medicines, vitamins, and herbal products. Not all [...] to ensure that the information provided by [employer]. ('[employer]') is accurate, up-to-date, and complete, but no guarantee is made to that effect. Drug information contained herein may be time sensitive. [employer] information has been compiled for use by healthcare practitioners and consumers in the [place] and therefore [employer] does not warrant that uses outside of the [place] are appropriate, unless specifically indicated otherwise. [employer]'s drug information does not endorse drugs, diagnose patients or recommend therapy. [employer] drug information is an informational resource designed [...] effective or appropriate for any given patient. [employer] does not assume any responsibility for any aspect of healthcare administered with the aid of information [employer] provides. The information contained herein is not intended to cover all possible uses, directions, precautions, warnings, drug interactions, allergic reactions, or adverse effects. If you have questions about the drugs you are taking, check with your doctor, nurse or pharmacist. Copyright 2704-1481 [employer]. Version: 5.01. Revision Date: 10/26/2017. amlodipine (am [...] may report side effects to FDA at 2-761-MAK-2073. What other drugs will affect amlodipine? Tell your doctor about all your current medicines and any you start or stop using, especially: ? nitroglycerin; ?? simvastatin (Zocor, Simcor, Vytorin); or ?? any other heart or blood pressure medications. This list is not complete. Other drugs may interact with amlodipine, including prescription and jsog-rud-zbngmru medicines, vitamins, and herbal products. Not all [...] to ensure that the information provided by [employer]. ('[employer]') is accurate, up-to-date, and complete, but no guarantee is made to that effect. Drug information contained herein may be time sensitive. [employer] information has been compiled for use by healthcare practitioners and consumers in the [place] and therefore [employer] does not warrant that uses outside of the [place] are appropriate, unless specifically indicated otherwise. [employer] drug information does not endorse drugs, diagnose patients or recommend therapy. [employer] drug information is an informational resource designed [...] effective or appropriate for any given patient. [employer] does not assume any responsibility for any aspect of healthcare administered with the aid of information [employer] provides. The information contained herein is not intended to cover all possible uses, directions, precautions, warnings, drug interactions, allergic reactions, or adverse effects. If you have questions about the drugs you are taking, check with your doctor, nurse or pharmacist. Copyright 3021-2587 [employer]. Version: 14.01. Revision Date: 01/24/2017. clopidogrel (kloe [...] may report side effects to FDA at 3-909-AVG-0454. What other drugs will affect clopidogrel? Certain other medicines may increase your risk of bleeding, including aspirin. Avoid taking aspirin unless your doctor tells you to. Tell your doctor about all your other medicines, especially: ? any other medicines to treat or prevent blood clots; ?? a stomach acid gambling supervisor such as omeprazole, Nexium, or Prilosec; ?? an antidepressant; ?? an opioid medication; ?? a blood thinner--warfarin, Coumadin, Jantoven; or ?? NSAIDs (nonsteroidal anti-inflammatory drugs)--ibuprofen (Advil, Motrin), naproxen (Aleve), celecoxib, diclofenac, indomethacin, meloxicam, and others. This list is not complete. Other drugs may affect clopidogrel, including prescription and pfwr-rhv-lmmmlpw medicines, vitamins, and herbal products. Not all [...] to ensure that the information provided by [employer]. ('[employer]') is accurate, up-to-date, and complete, but no guarantee is made to that effect. Drug information contained herein may be time sensitive. [employer] information has been compiled for use by healthcare practitioners and consumers in the [place] and therefore [employer] does not warrant that uses outside of the [place] are appropriate, unless specifically indicated otherwise. [employer] drug information does not endorse drugs, diagnose patients or recommend therapy. [employer] drug information is an informational resource designed [...] effective or appropriate for any given patient. [employer] does not assume any responsibility for any aspect of healthcare administered with the aid of information [employer] provides. The information contained herein is not intended to cover all possible uses, directions, precautions, warnings, drug interactions, allergic reactions, or adverse effects. If you have questions about the drugs you are taking, check with your doctor, nurse or pharmacist. Copyright 1125-2729 [employer]. Version: 15.. Revision Date: 08/07/2018. ranolazine (ra [...] may report side effects to FDA at 2-975-JWY-7213. What other drugs will affect ranolazine? Many [...] interact with ranolazine. This includes prescription and zpqy-jlu-yifayue medicines, vitamins, and herbal products. Give a [...] to ensure that the information provided by [employer]. ('[employer]') is accurate, up-to-date, and complete, but no guarantee is made to that effect. Drug information contained herein may be time sensitive. [employer] information has been compiled for use by healthcare practitioners and consumers in the [place] and therefore [employer] does not warrant that uses outside of the [place] are appropriate, unless specifically indicated otherwise. [employer] drug information does not endorse drugs, diagnose patients or recommend therapy. [employer] drug information is an informational resource designed [...] effective or appropriate for any given patient. [employer] does not assume any responsibility for any aspect of healthcare administered with the aid of information [employer] provides. The information contained herein is not intended to cover all possible uses, directions, precautions, warnings, drug interactions, allergic reactions, or adverse effects. If you have questions about the drugs you are taking, check with your doctor, nurse or pharmacist. Copyright 9112-0247 [employer]. Version: .. Revision Date: 12/04/2015. CIGARETTE SMOKING: The facts are clear, cigarette smoking will shorten your life. Smoking can cause many illnesses along the way. As a healthcare provider, we recommend that you stop smoking. Assistance with quitting is available by contacting 1-246-XFNU-NOW. This is a free resource providing counseling, [...] Be sure to sign up for the [employer] patient portal, which gives you 09/05 access to your medical information ??? including these discharge instructions ??? using your computer, smartphone, or tablet. Just go to [employer] to get started. Questions? Call . [facility] would like to thank you for allowing us to assist you with your healthcare needs. MICHELE Skaggs JUDY D, (or strategic partnership representative) have received the above patient education materials/instructions and have verbalized understanding: Patient Signature _ Date/Time Patient Log Driver Signature (if needed) Date/Time Clinician/Hospital Log Driver Signature (if needed) Date/Time Electronically signed by Sivan, [facility] Conversion Oil Well Services Dispatcher Cerner at 02/04/2023 1:58 PM CDT documented in this encounter Plan of Treatment Not on file documented as of this encounter Visit Diagnoses Not on filedocumented in this encounter Care Teams Ribbon Inker Relationship Specialty Start Date End Date Jay Howell MD [address] [place] [phone] PCP - General Emergency Medicine 11/12/23 documented as of this encounter
--- OUTSIDE RECORDS SUMMARY | 2025-10-13 13:32 | XMS_ITS | Encounter Summary ---
Author Organization [employer] ([place], [place], [place], [place], [place]) Address [address] [place] [address] Care Team Providers Care Adjunct Nursing Faculty Name Role Phone Jay Howell MD Primary Care Provider [phone] Encounter Details Date Type Department Care Team (Late st Contact Info) Description 12/20/2018 Transcribed Document [facility] [place] [address] [place] [address] ProviderJessie MD [address] [place] [address] Social History Tobacco Use Types Packs/Day Years Used Date Smoking Tobacco: Never Assessed Comments Unknown Sex and Gender Information Value Date Recorded Sex Assigned at Not on file Legal Sex Female 7:30 PM CDT Gender Identity Not on file Sexual Orientation Not on file documented as of this encounter Miscellaneous Notes * Cerner Conversion Note - Jessie Yuen MD - 12/20/2018 3:20 PM MARINE DESIGNER DATE OF PROCEDURE: LEFT HEART CATHETERIZATION, GRAFT ANGIOGRAPHY, ILIAC ARTERY ANGIOGRAPHY, PERCUTANEOUS INTERVENTION REPORT INDICATION: Lifestyle limiting exertional angina. REFERRING PHYSICIAN: Dr. Adry Dumas and Dr. Avtar Moeller. PROCEDURE: Standard left heart catheterization. TECHNIQUE: A 5/6-Norwegian sheath placed in the right femoral artery. Right iliac artery angiography was performed using a JR4 diagnostic catheter due to difficulty in advancing safety J-wire across the proximal right common iliac artery. Angiography revealed patent iliac artery with a kink proximally. There is no pressure gradient across the kink. The short 6-Norwegian sheath was switched out for a 25 cm 6-Norwegian Arrow sheath with the sheath tip into the abdominal aorta for angiography and percutaneous intervention. JL4, JR4 diagnostic catheters were used for selective angiography of the makah vessels. JR4 diagnostic catheter was used for selective angiography of the bypass grafts. A 6-Norwegian pigtail catheter was advanced in the left [...] additional 162 mg of aspirin in the micro lab analyst. She was given Aggrastat bolus. Patient received intracoronary nitroglycerin to optimize coronary vessel sizing. Wood Pcaheco M.D. Dict: 12/20/2018 15:20:17 Trans: 12/20/2018 18:55:03 CC1: Wood Pacheco M.D. CC2: Dr. Adry Dumas CC3: Dr. Avtar Moeller documented in this encounter Plan of Treatment Not on file documented as of this encounter Visit Diagnoses Not on filedocumented in this encounter Care Teams Adjunct Nursing Faculty Relationship Specialty Start Date End Date Jay Howell MD [address] [place] [phone] PCP - General Emergency Medicine 11/12/23 documented as of this encounter
--- OUTSIDE RECORDS SUMMARY | 2025-10-13 13:32 | XMS_ITS | Encounter Summary ---
Author Organization [employer] ([place], [place], [place], [place], [place]) Address [address] [place] [address] Care Team Providers Care Hide Examiner Name Role Phone Jay Howell MD Primary Care Provider [phone] Encounter Details Date Type Department Care Team (Late st Contact Info) Description 12/20/2018 Transcribed Document [facility] [place] Family Medicine [address] [place] [address] ProviderJessie MD [address] [place] [phone] Social History Tobacco Use Types Packs/Day Years Used Date Smoking Tobacco: Never Assessed Comments Unknown Sex and Gender Information Value Date Recorded Sex Assigned at Not on file Legal Sex Female 7:30 PM CDT Gender Identity Not on file Sexual Orientation Not on file documented as of this encounter Miscellaneous Notes * Cerner Conversion Note - Jessie ProviderMD - 12/20/2018 11:57 AM MANAGER INTELLIGENCE Pre Procedure Adult Entered On: 12/20/2018 12:01 EST Performed On: 12/20/2018 11:57 EST by VANCE BELTRAN RN Height and Weight, Clinical Dosing Height Source : Stated Height Entry Format : [facility] Height, Feet : 5 ft(Converted to: 152 cm, 60 Inch) Height, Inches : 3 Inch(Converted to: 0 ft 3 Inch, 7.62 cm) Clinical Height : 160.02 cm Weight Source : Standing scale Weight Entry Format : [facility] Clinical Dosing Weight : 71.82 kg Weight, Pounds : 158 lb Body Surface Area (BSA) : 1.75 m2 Body Mass Index : 28 kg/m2 (HI) [place] Body Weight : 52 kg VANCE BELTRAN [...] Info Preferred Name : ilsa Support Person/Patient Diabetes Territory Manager : Deanna Support Person/Pt Rep Name : Willard Contact Password : Marvin Support Person/Pt Rep Contact Information : [phone] Want Family/Rep/Phys Notified of Admit : No Emergency Contact #1 : na Emergency Contact #1 Phone Number : [place] Emergency Contact #1 Relationship : na Emergency Contact #2 : na Emergency Contact #2 Phone Number : [place] Emergency Contact #2 Relationship : na Primary Language : Bahraini Preferred Communication Mode [...] Scale Risk Level : 0-24 Low Risk [place] Fall Interventions : Bed in low position, Call device within reach, Non-slip footwear, Wheels locked VANCE BELTRAN RN - 12/20/2018 11:57 EST Valuables and Belongings Valuables and Belongings : Clothing Clothing : Common streetwear Clothing Disposition : Bedside VANCE BELTRAN RN - 12/20/2018 11:57 EST Electronically signed by Sivan, [facility] Conversion Lead Principal Technical Architect Cerner at 02/04/2023 2:07 PM CDT documented in this encounter Plan of Treatment Not on file documented as of this encounter Visit Diagnoses Not on filedocumented in this encounter Care Teams Hide Examiner Relationship Specialty Start Date End Date Jay Howell MD [address] [place] [phone] PCP - General Emergency Medicine 11/12/23 documented as of this encounter
--- OUTSIDE RECORDS SUMMARY | 2025-10-13 13:32 | XMS_ITS | Encounter Summary ---
Author Organization [employer] ([place], [place], [place], [place], [place]) Address [address] [place] [address] Care Team Providers Care Sew Out Operator Name Role Phone Jay Howell MD Primary Care Provider [phone] Encounter Details Date Type Department Care Team (Late st Contact Info) Description 08/28/2020 Transcribed Document [facility] [place] Family Medicine [address] [place] [address] ProviderJessie MD [address] [place] [address] [phone] Social History Tobacco Use Types Packs/Day Years Used Date Smoking Tobacco: Never Assessed Comments Unknown Sex and Gender Information Value Date Recorded Sex Assigned at Not on file Legal Sex Female 7:30 PM CDT Gender Identity Not on file Sexual Orientation Not on file documented as of this encounter Miscellaneous Notes * Cerner Conversion Note - Jessie Yuen MD - 08/28/2020 11:43 AM SOURCER Patient: SKYLER MONTOYA Age: 79 years Sex: Female : 1940 Associated Diagnoses: None Author: SLICK BRADLEY, [facility] Ms. Montoya is 79 yo female [...] on filedocumented in this encounter Care Teams Sew Out Operator Relationship Specialty Start Date End Date Jay Howell MD [address] [place] [phone] PCP - General Emergency Medicine 11/12/23 documented as of this encounter
--- OUTSIDE RECORDS SUMMARY | 2025-10-13 13:32 | XMS_ITS | Encounter Summary ---
Author Organization [employer] ([place], [place], [place], [place], [place]) Address [address] [place] [address] Care Team Providers Care Carpenter Inspector Name Role Phone Jay Howell MD Primary Care Provider [phone] Encounter Details Date Type Department Care Team (Late st Contact Info) Description 12/21/2018 Transcribed Document [facility] [place] [address] [place] [address] ProviderJessie MD [address] [place] [phone] Social History Tobacco Use Types Packs/Day Years Used Date Smoking Tobacco: Never Assessed Comments Unknown Sex and Gender Information Value Date Recorded Sex Assigned at Not on file Legal Sex Female 7:30 PM CDT Gender Identity Not on file Sexual Orientation Not on file documented as of this encounter Miscellaneous Notes * [employer]ner Conversion Note - Jessie ProviderMD - 12/21/2018 9:33 AM RADIO MECHANIC HELPER Care Management Assessment/Plan Entered On: 12/21/2018 9:34 EST Performed On: 12/21/2018 9:33 EST by ANISH BRAN RN Care Management Note Care Management Note Report : ANISH BRAN RN - 12/21/18 09:37:01 Discharging today ANISH BRAN RN - 12/21/2018 12:24 EST Care Management Note : Order for cardiac rehab to the program at [facility] - they will ocntact pt Documentation Status Complete : Yes ANSIH BRAN RN - 12/21/2018 9:33 EST Discharge Planning Details Discharge Home : Home with spouse/significant other Discharge Placement Needs : Home Persons Assisting Patient at Home : Spouse Transportation Needs : Family/Friend ANISH BRAN RN - 12/21/2018 9:33 EST Final Discharge Disposition Note-CM Discharge To Care Management : Home/Residential/Prison or Self Care -01 ANISH BRAN RN - 12/21/2018 9:33 EST Electronically signed by [facility] Conversion Janitorial Tech Cerner at 02/04/2023 2:07 PM CDT documented in this encounter Plan of Treatment Not on file documented as of this encounter Visit Diagnoses Not on filedocumented in this encounter Care Teams Carpenter Inspector Relationship Specialty Start Date End Date Jay Howell MD [address] [place] [phone] PCP - General Emergency Medicine 11/12/23 documented as of this encounter
--- OUTSIDE RECORDS SUMMARY | 2025-10-13 13:32 | XMS_ITS | Encounter Summary ---
Author Organization [employer] ([place], [place], [place], [place], [place]) Address [address] [place] [address] Care Team Providers Care President [employer] Name Role Phone Jay Howell MD Primary Care Provider [phone] Encounter Details Date Type Department Care Team (Late st Contact Info) Description 08/28/2020 Transcribed Document [facility] Family Medicine [address] [place] [id number] ProviderJessie MD [address] [place] [address] [id number] Social History Tobacco Use Types Packs/Day Years Used Date Smoking Tobacco: Never Assessed Comments Unknown Sex and Gender Information Value Date Recorded Sex Assigned at Not on file Legal Sex Female 7:30 PM CDT Gender Identity Not on file Sexual Orientation Not on file documented as of this encounter Miscellaneous Notes * [employer]ner Conversion Note - Jessie Yuen MD - 08/28/2020 3:33 PM DIRECTOR DERMATOLOGY On Going Discharge Planning Entered On: 08/28/2020 15:37 EST Performed On: 08/28/2020 15:33 EST by KAVITA PELLETIER RN-Accounting Machine OperatorManager Plumbing Progress Note Discharge Arrangements : Patient Post-Acute [...] Meeting Medical Necessity : Yes KAVITA PELLETIER RN-Accounting Machine Operator - 08/28/2020 15:33 EST Narrative Progress Note Narrative Progress Note : Cx's still pending. IV Vanc/Dapto. Vasc s/o. Pt will need NPWT-CM will obtain prior to dc. List of SMALL KICK PRESS OPERATOR's for [place] given to pt. [...] is agreeable to look at list of SMALL KICK PRESS OPERATOR to make an informed decision based on quality and resource use information. Cx's are pending to determine need for IV abx at home. Likely dc in a few days. CM will continue to follow. KAVITA PELLETIER RN-Accounting Machine Operator - 08/27/20 15:14:36 KAVITA PELLETIER RN-Accounting Machine Operator - 08/28/2020 15:33 EST Electronically signed by Sivan [facility] Conversion Administrative Office Specialist Cerner at 02/04/2023 2:13 PM CDT documented in this encounter Plan of Treatment Not on file documented as of this encounter Visit Diagnoses Not on filedocumented in this encounter Care Teams President [employer] Relationship Specialty Start Date End Date Jay Howell MD [address] [place] [id number] PCP - General Emergency Medicine 11/12/23 documented as of this encounter
--- NOTE | 2025-10-13 14:19 | HMH.PHAAMS2 ---
- Antimicrobial Stewardship Review culture & sensitivity review Stewardship interventions: culture & sensitivity review (NO CX OBTAINED)
[2025-10-13 14:26] LABS: Hematocrit 26.8 % (37.0-47.0); Hemoglobin 8.9 g/dL (12.2-16.2)
--- NOTE | 2025-10-13 14:58 | P.CONPHA_ITS ---
Pharmacy Intervention Comments: MEDICATION RECONCILIATION COMPLETED ON PATIENT USING AUTUMN REPORT AND [facility] REPORT FROM LAST MONTH. -SHELL MCGARRY, GEOVANNID
--- NOTE | 2025-10-13 14:58 | HMH.PHAINT1 ---
Pharmacy Intervention Comments: MEDICATION RECONCILIATION COMPLETED ON PATIENT USING AUTUMN REPORT AND CUSTODIAL REPORT FROM LAST MONTH. -SHELL MCGARRY, GEOVANNID
[2025-10-13] MEDS: HYDROCODONE/APAP 5/325 MG TABLET 1 TAB PO (16:44)
[2025-10-14] VITALS: BP 137/70; PULSE 89; RESP 16; TEMP 36.9; O2SAT 94
[2025-10-14] MEDS: PIPERCILLIN/TAZO 3.375 GM in 0.9 % SODIUM CHLORIDE 50 ML IV ×2 (00:10→08:32)
[2025-10-14] MEDS: HYDROCODONE/APAP 5/325 MG TABLET 1 TAB PO ×2 (00:15→15:07)
--- NOTE | 2025-10-14 00:30 | PC.NURSE ---
PT IS RESTING IN BED. ALERT AND ORIENTED X3. MEDICATED PER MAR FOR DISCOMFORT. LUNG SOUNDS CLEAR. ABDOMEN SOFT/NON TENDER WITH ACTIVE BOWEL SOUNDS. WILL CONTINUE TO MONITOR.
[2025-10-14 04:00] VITALS: BP 118/90; PULSE 86; RESP 16; TEMP 36.5; O2SAT 93; BMI 17.6
[2025-10-14 06:43] LABS: Hematocrit 26.8 % (37.0-47.0); Hemoglobin 9.0 g/dL (12.2-16.2); Immature Granulocytes % 0.6 %; Mean Corpuscular HGB Conc 33.6 g/dL (31.8-35.4); Mean Corpuscular Hemoglobin 38.1 pg (27.0-31.2); Mean Corpuscular Volume 113.6 fl (81-99); Nucleated Red Blood Cells % 0 %; Platelet Count 78 K/mm3 (142-424); Red Blood Count 2.36 M/mm3 (4.20-5.40); Red Cell Distribution Width-SD 57.7 fL; White Blood Count 3.6 K/mm3 (4.8-10.8)
[2025-10-14 06:54] LABS: Albumin Level 3.5 g/dl (3.5-5.0); Chloride 104 mmol/L (98-107); Potassium 3.8 mmoL/L (3.5-5.1); Sodium 136 mmol/L (136-145)
[2025-10-14 06:57] LABS: Alanine Aminotransferase 21 U/L (12-78); Albumin/Globulin Ratio 1.0 (1.1-1.8); Alkaline Phosphatase 129 U/L (38-126); Anion Gap 10.8 mEq/L (5-15); Aspartate Amino Transferase 33 U/L (14-36); Bilirubin,Total 0.9 mg/dl (0.2-1.3); Blood Urea Nitrogen 26 mg/dl (7-17); Calcium 8.9 mg/dl (8.4-10.2); Carbon Dioxide 25 mmol/L (22.0-30.0); Creatinine Clearance Estimated 25 mL/min (50-200); Creatinine,Serum 1.40 mg/dl (0.52-1.04); Estimated Glomerular Filt Rate 36 ml/min (>60); GFR (African American) 43 ML/MIN (>60); Globulin 3.5 g/dL (1.3-3.2); Glucose 90 mg/dl (74-100); Total Protein,Serum 7.0 g/dl (6.3-8.2)
[2025-10-14 06:58] LABS: Magnesium 1.9 mg/dl (1.6-2.3)
[2025-10-14 08:00] VITALS: BP 138/68; PULSE 88; RESP 17; TEMP 36.6; O2SAT 94
[2025-10-14] MEDS: FUROSEMIDE 40MG/4ML VIAL 40 MG IV (08:33)
--- NOTE | 2025-10-14 09:12 | HMH.PHAAMS2 ---
- Antimicrobial Stewardship Review culture & sensitivity review Stewardship interventions: culture & sensitivity review, reviewed - no change Comments: NO CULTURES, PATIENT ON ZOSYN FOR SUSPECTED COLITIS.
[2025-10-14] MEDS: levETIRAcetam 500 MG in 0.9 % SODIUM CHLORIDE 100 ML 210 MG IV ×2 (09:23→21:13)
[2025-10-14] MEDS: POLYETHYLENE GLYCOL 3350 17 GM PACKET PO (09:23)
[2025-10-14 11:53] VITALS: BP 131/62; PULSE 82; RESP 16; TEMP 36.6; O2SAT 98
--- NOTE | 2025-10-14 13:10 | HMH.PTEV ---
Physical Therapy Evaluation Rehab PT IP Evaluation Start: 10/13/25 12:49 Freq: ONCE Status: Active Protocol: Document 10/14/25 13:04 ELINA (Rec: 10/14/25 13:08 ELINA [id number]) Subjective/History History History Per H&P: *History of present illness: Miladis Montoya is an 84-year-old female with a past medical history of CABG, peripheral artery disease, A- fib RVR, hypertension, hyperlipidemia, diabetes mellitus, sleep apnea, who presents to the emergency department for decreased responsiveness. last known normal was around 230 today. approximately 815 started become less responsive. Said that she is normally alert and answering questions appropriately. They state that on the way over to the ER, she stopped responding. They state that she had a full body shaking that happened when she has taken gabapentin in the past and states that she last took it this morning. She they note that she is prescribed oxycodone but do not know if she has been taking that. They state that throughout the day today, she has been increasingly getting more lethargic and less responsive . In ED GCS of 3 at this time. Due to concern for impending respiratory failure, plan was to intubate the patient, however, patient's son arrived, who states that he is her next of kin and states that they have had multiple conversations and she expressed clearly that she would not want to be intubated and is a DNR. Reportedly began becoming more alert and conversant over time. She is currently AAO and normal mentation Plan is to transfer to [facility] for further management of new onset seizures. Accepted and on waitlist. Will transfer once beds available Subjective Subjective Where is my bed? Pt is a questionable historian. Pt reports she lives alone in a home with 1 OREN. Pt has a Left AKA. Pt reports she uses a RW for IND ambulation. Pt then recalled that she uses a w/c now and is IND with transfers. Pt reports she plans to drive once given a prosthetic. Pt reports her son sometimes stay with her. [facility] How much help from another person do you currently need... Turning from your A little back to your side while in a flat bed without using bedrails? Moving from lying on A little back to sitting on the side of a flat bed without using bedrails? Moving to and from a A lot bed to a chair ( including a wheelchair)? Standing up from a A lot chair using your arms? (e.g., wheelchair, bedside chair) Walking in hospital Total room? Climbing 3-5 steps Total with a railing? Mobility Score 12 Mobility Level [facility] Mobility 4 Move to chair/commode Mobility Calculator Rehab PT IP Eval Objective Appearance Patient Behavior Cooperative,Confused Patient Orientation Person Difficulty following mild instructions Speech Pattern Clear Ambulation Patient Able to No Ambulate Balance Ability to Arise Able, uses arms to help Sitting Balance Leans or slides in chair Standing Balance Unsteady Transfers Bed Transfer Ability Moderate x 1 (50% assist) Rehab PT IP prob,goals,plan Problems Date of Evaluation: 10/14/25 PT IP Problems Bed Mobility,Transfers,Gait,Balance,Self care,Safety Rehab Potential Rehab Potential Good Plan PT Intervention Plan Bed Mobility,Transfers,Gait,Balance,Self care,Safety, Therapeutic Exercise Other Intervention 1-2 times Plan PT Plan Frequency Daily Duration LOS Discharge Goals Bed Transfer Ability Supervision/Stand by Sit to Stand Chair Moderate x 1 (50% assist) Transfer Ability Discharge Plan PT Discharge Plan Initial PT evaluation performed. Pt presents below her baseline in functional mobility and strength. Pt most appropriate for inpatient rehabilitation placement to maximize safety with mobility and decrease caregiver burden. Pt would benefit from skilled PT while at [facility] to address deficits and prevent further functional decline . Eval Complexity Eval Charge Codes 63744 - Moderate Complexity PHYSICIAN CERTIFICATION: I certify the specified therapy services for Miladis Montoya are required, authorized, and reviewed every 30 days.
[2025-10-14] MEDS: PIPERACILLIN/TAZO 2.25 GM in 0.9 % SODIUM CHLORIDE 50 ML IV ×2 (14:06→20:25)
--- NOTE | 2025-10-14 14:07 | P.PN_ITS ---
Subjective *Date: 10/14/25 *Time: 14:14 Interval history: Alert and oriented this morning. Working with therapy. Therapy recommends placement, patient adamant against it. No nausea or vomiting. Encouraged to get up to bedside chair for meals. Stable on room air Medical Exam Vital signs and Labs for Last 24 Hours: Vital Signs Temp Pulse Pulse Resp BP Pulse Ox O2 Del Method 10/14/25 13:00 Room Air 10/14/25 11:53 97.8 F 82 16 131/62 98 Room Air 10/14/25 11:00 Room Air 10/14/25 09:00 Room Air 10/14/25 08:00 Room Air 10/14/25 08:00 97.9 F 88 17 138/68 94 L Room Air 10/14/25 06:15 Room Air 10/14/25 04:40 Room Air 10/14/25 04:00 97.7 F 86 16 118/90 93 L Room Air 10/14/25 02:37 Room Air 10/14/25 00:50 Room Air 10/14/25 00:00 98.4 F 89 16 137/70 94 L Room Air 10/13/25 23:00 Room Air 10/13/25 20:39 Room Air 10/13/25 20:00 Room Air 10/13/25 20:00 97.8 F 93 H 18 91/43 L 95 Room Air 10/13/25 18:51 Room Air 10/13/25 17:00 Room Air 10/13/25 16:00 84 10/13/25 15:00 Room Air Intake and Output 10/13/25 10/14/25 10/14/25 23:59 07:59 15:59 Intake Total 105 / 1260 50 / 445 395 / 445 Output Total 200 / 2245 800 / 1750 950 / 1750 Balance -95 / -985 -750 / -1305 -555 / -1305 Intake: Intake, Oral Amount 240 / 240 Intake, Total IV Amount 105 / 1260 50 / 205 155 / 205 Pipercillin/Tazo 3.375 gm In 0. 50 / 100 50 / 100 9 % Sodium Chloride 50 ml @ 100 mls/hr IV Q8H RUBY Rx#:[id number] levETIRAcetam 500 mg In 0.9 % 105 / 210 105 / 105 Sodium Chloride 100 ml @ 210 mls/hr IV Q12H RUBY Rx#:[id number] Output: Output, Urine Amount 2014 950 / 950 Output, Urine Amount (Catheter) 100 / 230 800 / 800 [place] 100 / 230 800 / 800 Other: Number of Voids 0 Number of Unmeasured Voids 0 0 Weight 54.159 kg Patient Weight 10/14/25 23:59 Weight 54.159 kg Laboratory Results - last 24 hr 10/13/25 14:10: Hgb 8.9 L, Hct 26.8 L 10/14/25 06:23: WBC 3.6 L, RBC 2.36 L, Hgb 9.0 L, Hct 26.8 L, MCV 113.6 H, MCH 38.1 H, MCHC 33.6, RDW 14.1, Plt Count 78 L, MPV 13.0 H, Neut % (Auto) 68.6, Lymph % (Auto) 25.3, [place] % (Auto) 5.2, Eos % (Auto) 0.0 L, Baso % (Auto) 0.3, Neut # (Auto) 2.5, Lymph # (Auto) 0.9, [place] # (Auto) 0.2, Eos # (Auto) 0.0, Baso # (Auto) 0.0, Sodium 136, Potassium 3.8, Chloride 104, Carbon Dioxide 25, Anion Gap 10.8, BUN 26 H, Creatinine 1.40 H, Estimated Creat Clear 25, Estimated GFR 36 L, Est GFR ( Amer) 43 L, Glucose 90, Calcium 8.9, Magnesium 1.9, Total Bilirubin 0.9, AST 33, ALT 21, Alkaline Phosphatase 129 H, Total Protein 7.0, Albumin 3.5, Globulin 3.5 H, Albumin/Globulin Ratio 1.0 L I & O for Labs for Last 24 Hours: Intake & Output 10/11/25 10/12/25 10/13/25 10/14/25 23:59 23:59 23:59 23:59 Intake Total 120 / 120 1260 / 1260 445 / 445 Output Total 2245 / 2245 1750 / 1750 Balance 120 / 120 -985 / -985 -1305 / -1305 Weight 58.967 kg 54.159 kg 54.159 kg Constitutional: Present no acute distress, thin, chronically ill appearing and cooperative Respiratory: Present normal respiratory effort; Absent respiratory distress, rhonchi, stridor or wheezes Cardiac: Present Reg Rate and Rhythm GI: Present normal bowel sounds; Absent tenderness Extremities: Present full ROM Comment:: left AKA Skin: Present intact; Absent erythema Neuro: Present Grossly Intact, alert, awake, oriented x 3 and moves all extremities Assessment and Plan *Assessment and plan (1) Seizure-like activity: Status: Acute Category: Medical Code(s): R29.818 - Other symptoms and signs involving the nervous system (2) AMS (altered mental status): Status: Acute Category: Medical Code(s): R41.82 - Altered mental status, unspecified (3) Diabetes mellitus: Status: Acute Category: Medical Code(s): E11.9 - Type 2 diabetes mellitus without complications (4) Peripheral vascular disease: Status: Acute Category: Medical Code(s): I73.9 - Peripheral vascular disease, unspecified (5) Hypertension: Status: Acute Category: Medical Code(s): I10 - Essential (primary) hypertension Plan Jan is an 84-year-old female with history of CABG, left BKA, hypertension, neuropathy. Presented with concern for seizure-like activity. Has had no further episodes since admission. Initially placed on waitlist with [facility]. Is back to baseline mentation. Evaluated by therapy, recommend placement. Patient has no desire to go to placement at this time. Case management assisting with dispo planning. Continues to require inpatient management. Problems addressed as follows: Seizure-like activity Encephalopathy - Suspect toxic encephalopathy given positive UDS for THC along with home medications include gabapentin and oxycodone. - Initiated on Keppra, continue 500 mg twice daily - Plan for outpatient neurology follow-up - Caution with polypharmacy. - Patient states she aches all over, concern for mild withdrawal symptoms from h er opiates and gabapentin. Resume gabapentin at reduced dose of 200 mg 3 times a day. Hydrocodone 5 every 6 hours as needed for moderate to severe pain; monitor for toxicity - White count low at 3.6, hemoglobin 9. Platelets 78. Anticoagulation contraindicated. Repeat CBC, CMP, magnesium ordered for the morning. Continue metoprolol to tartrate 12.5 mg twice daily Continue ranolazine at 1000 mg daily Continue aspirin 81 mg daily Holding losartan as patient was hypotensive on arrival Continue nortriptyline 10 mg nightly Resume latanoprost eyedrops nightly and dorzolamide eyedrops nightly DNR/DNI Regular diet
--- NOTE | 2025-10-14 14:15 | SW/DCPLANNER ---
Addendum entered by Celsa Marquez 10/15/25 12:14: Patient's son at bedside for discussion regarding discharge planning. Patient is not willing to go to placement and prefers to return home and resume home health services (agency unknown). Per son patient has all equipment needed at home but would like for an aide w/ home health to assist w/ bathing. Son is agreeable to discharge home w/ patient. CM will find out home health agency and look into agency providing gis engineer to assist w/ bathing. Per MD patient will discharge home today. Addendum entered by Celsa Marquez 10/15/25 10:50: Patient continues to refuse placement. I did reach out to patient's son (Leonardo) and he will be at bedside shortly to have a conversation w/ MD zuleyka and myself. CM will continue to follow up. Original Note: I spoke w/ patient this afternoon regarding plans once medically stable for discharge. PT evaluated patient and recommended SNF level of care. Patient stated that she resides at home alone and son her son checks on her every other day. Patient stated that she has been to several other facilities in the past and is NOT interested in placement at this time. Patient and I had a lengthy discussion regarding the need for short term therapy and she continues to refuse. CM will continue to follow up w/ this patient. Discharge date is unknown at this time.
[2025-10-14 16:00] VITALS: BP 139/84; PULSE 67; RESP 17; TEMP 36.7; O2SAT 97
--- NOTE | 2025-10-14 16:25 | PC.NURSE ---
Patient drowsy and confused to place, time and situation intermittently. On room air. VSS. Up with 2 with pivot to chair and BSC. Voiding adequately. Hydrocodone for complaint of phantom pain. Antibiotics infused per orders for suspected colitis. Keppra administered per orders for suspected seizure. Patient needed lots of encouragement to get into chair. States she just wants to sleep. Son updated on POC x 2 today. States she has been increasingly forgetful over the last few months. Possible discharge home with family support.
[2025-10-14 20:00] VITALS: BP 164/93; PULSE 93; RESP 18; TEMP 36.4; O2SAT 98
[2025-10-14] MEDS: GABAPENTIN 100MG CAPSULE 200 MG PO (20:24)
[2025-10-14] MEDS: METOPROLOL TARTRATE 25MG TABLET 12.5 MG PO (20:25)
[2025-10-14] MEDS: PANTOPRAZOLE 40MG TABLET 40 MG PO (20:25)
[2025-10-14] MEDS: DORZOLAMIDE 2% OP (20:26)
[2025-10-14] MEDS: LATANOPROST 0.005% OPTH SOLN 2.5ML OP (20:27)
[2025-10-15] VITALS: BP 137/63; PULSE 76; RESP 16; TEMP 36.5; O2SAT 97
[2025-10-15] MEDS: PIPERACILLIN/TAZO 2.25 GM in 0.9 % SODIUM CHLORIDE 50 ML IV ×2 (01:08→08:10)
[2025-10-15 04:00] VITALS: BP 157/74; PULSE 83; RESP 16; TEMP 36.4; O2SAT 100; BMI 16.9
--- NOTE | 2025-10-15 05:10 | PC.NURSE ---
Pt has remained alert to person place and time. She has tolerated room air. Receiving IV abx. Seizure precautions in place. No complaints at this time, bed alarm in place.
[2025-10-15 06:13] LABS: Hematocrit 28.3 % (37.0-47.0); Hemoglobin 9.7 g/dL (12.2-16.2); Immature Granulocytes % 0.3 %; Mean Corpuscular HGB Conc 34.3 g/dL (31.8-35.4); Mean Corpuscular Hemoglobin 39.1 pg (27.0-31.2); Mean Corpuscular Volume 114.1 fl (81-99); Nucleated Red Blood Cells % 0 %; Platelet Count 89 K/mm3 (142-424); Red Blood Count 2.48 M/mm3 (4.20-5.40); Red Cell Distribution Width-SD 57.7 fL; White Blood Count 3.2 K/mm3 (4.8-10.8)
[2025-10-15 06:27] LABS: Albumin Level 3.8 g/dl (3.5-5.0); Chloride 104 mmol/L (98-107)
[2025-10-15 06:28] LABS: Potassium 3.4 mmoL/L (3.5-5.1); Sodium 137 mmol/L (136-145)
[2025-10-15 06:30] LABS: Alanine Aminotransferase 20 U/L (12-78); Alkaline Phosphatase 131 U/L (38-126); Anion Gap 11.4 mEq/L (5-15); Aspartate Amino Transferase 36 U/L (14-36); Bilirubin,Total 1.0 mg/dl (0.2-1.3); Blood Urea Nitrogen 27 mg/dl (7-17); Carbon Dioxide 25 mmol/L (22.0-30.0); Creatinine Clearance Estimated 24 mL/min (50-200); Creatinine,Serum 1.40 mg/dl (0.52-1.04); Estimated Glomerular Filt Rate 36 ml/min (>60); GFR (African American) 43 ML/MIN (>60)
[2025-10-15 06:31] LABS: Albumin/Globulin Ratio 1.0 (1.1-1.8); Calcium 8.9 mg/dl (8.4-10.2); Globulin 3.8 g/dL (1.3-3.2); Glucose 90 mg/dl (74-100); Magnesium 2.1 mg/dl (1.6-2.3); Total Protein,Serum 7.6 g/dl (6.3-8.2)
[2025-10-15 08:00] VITALS: BP 119/61; PULSE 100; RESP 15; TEMP 36.5; O2SAT 97
[2025-10-15] MEDS: FUROSEMIDE 40MG/4ML VIAL 40 MG IV (08:11)
[2025-10-15] MEDS: POLYETHYLENE GLYCOL 3350 17 GM PACKET PO (08:11)
[2025-10-15] MEDS: RANOLAZINE 500MG ER TABLET 1000 MG PO (08:12)
[2025-10-15] MEDS: GABAPENTIN 100MG CAPSULE 200 MG PO (08:15)
[2025-10-15] MEDS: ASPIRIN EC 81MG TABLET 81 MG PO (08:16)
[2025-10-15] MEDS: PANTOPRAZOLE 40MG TABLET 40 MG PO (08:16)
--- NOTE | 2025-10-15 08:47 | HMH.PHAAMS2 ---
- Antimicrobial Stewardship Review culture & sensitivity review Stewardship interventions: culture & sensitivity review (CURRENTLY RECEIVING ZOSYN, WBC 3.2K TODAY, AFEBRILE, NO CX COLLECTED CURRENTLY.)
[2025-10-15] MEDS: METOPROLOL TARTRATE 25MG TABLET 12.5 MG PO (09:13)
[2025-10-15] MEDS: levETIRAcetam 500 MG in 0.9 % SODIUM CHLORIDE 100 ML 210 MG IV (09:13)
[2025-10-15 11:27] VITALS: BP 111/68; PULSE 88; RESP 16; TEMP 36.6; O2SAT 96
--- NOTE | 2025-10-15 12:06 | EXP.DC.SUM ---
General Admission date:: 10/13/25 Discharge date: 10/15/25 HPI HPI HPI: Miladis Montoya is an 84-year-old female with a past medical history of CABG, peripheral artery disease, A-fib RVR, hypertension, hyperlipidemia, diabetes mellitus, sleep apnea, who presents to the emergency department for decreased responsiveness. last known normal was around 230 today. approximately 815 started become less responsive. Said that she is normally alert and answering questions appropriately. They state that on the way over to the ER, she stopped responding. They state that she had a full body shaking that happened when she has taken gabapentin in the past and states that she last took it this morning. She they note that she is prescribed oxycodone but do not know if she has been taking that. They state that throughout the day today, she has been increasingly getting more lethargic and less responsive. In ED GCS of 3 at this time. Due to concern for impending respiratory failure, plan was to intubate the patient, however, patient's son arrived, who states that he is her next of kin and states that they have had multiple conversations and she expressed clearly that she would not want to be intubated and is a DNR. Reportedly began becoming more alert and conversant over time. She is currently AAO and normal mentation Plan is to transfer to [facility] for further management of new onset seizures. Accepted and on waitlist. Will transfer once beds available At this time no further complaints or issues Hospital Course Hospital Course Hospital Course: Jan is an 84-year-old female with history of CABG, left BKA, hypertension, neuropathy. Presented with concern for seizure-like activity. Has had no further episodes since admission. Initially placed on waitlist with [facility]. Is back to baseline mentation. Evaluated by therapy, recommend placement. Patient has no desire to go to placement at this time. Was also empirically treated with antibiotics due to concern for possible infection. Cultures returned back negative. Patient stable to discharge home with family. Minor changes made to medications. Recommend further management as an outpatient. Problems addressed as follows: Seizure-like activity Encephalopathy, consistent with toxic - Findings most consistent with toxic encephalopathy given positive UDS for THC along with home medications include gabapentin and oxycodone. Initiated on Keppra due to seizure-like activity. No further activity during admission however. Recommend continuing Keppra 500 mg twice daily for now with outpatient follow-up and further management by PCP. Consider referral to neurology. Concern patient's symptoms most likely secondary to polypharmacy. Resumed her medications at reduced dose. Recommend reevaluating dosage in the outpatient setting and titrating down as tolerated. - Labs stable on day of discharge. Low white count consistent with patient's history per chart review. Therapy worked with her during admission. She was able to transfer from the bed to a wheelchair and then from wheelchair potty chair on her own which is what she does at home currently. Adamant about going home. Continue metoprolol tartrate at reduced dose 12.5 mg twice daily Continue ranolazine at 1000 mg daily Continue aspirin 81 mg daily Holding losartan as patient was hypotensive on arrival Continue nortriptyline 10 mg nightly Resume latanoprost eyedrops nightly and dorzolamide eyedrops nightly Total time spent on discharge 32 minutes in counseling, documentation, chart review, and direct care with patient. Exam Data for Last 24 hours Vital signs and Labs for Last 24 Hours: Temp Pulse Resp BP Pulse Ox O2 Del Method 97.9 F 88 16 111/68 96 Room Air 10/15/25 11:27 10/15/25 11:27 10/15/25 11:27 10/15/25 11:27 10/15/25 11:27 10/15/25 11:27 Laboratory Results - last 24 hr 10/15/25 05:53: WBC 3.2 L, RBC 2.48 L, Hgb 9.7 L, Hct 28.3 L, MCV 114.1 H, MCH 39.1 H, MCHC 34.3, RDW 13.7, Plt Count 89 L, MPV 12.9 H, Neut % (Auto) 59.8, Lymph % (Auto) 32.4, [place] % (Auto) 6.9, Eos % (Auto) 0.3, Baso % (Auto) 0.3, Neut # (Auto) 1.9, Lymph # (Auto) 1.0, [place] # (Auto) 0.2, Eos # (Auto) 0.0, Baso # (Auto) 0.0, Sodium 137, Potassium 3.4 L, Chloride 104, Carbon Dioxide 25, Anion Gap 11.4, BUN 27 H, Creatinine 1.40 H, Estimated Creat Clear 24, Estimated GFR 36 L, Est GFR ( Amer) 43 L, Glucose 90, Calcium 8.9, Magnesium 2.1 D, Total Bilirubin 1.0, AST 36, ALT 20, Alkaline Phosphatase 131 H, Total Protein 7.6, Albumin 3.8, Globulin 3.8 H, Albumin/Globulin Ratio 1.0 L I & O for Last 24 hours: Intake & Output 10/12/25 10/13/25 10/14/25 10/15/25 23:59 23:59 23:59 23:59 Intake Total 120 / 120 1260 / 1260 1210 / 1360 305 / 305 Output Total 2245 / 2245 2650 / 2650 350 / 350 Balance 120 / 120 -985 / -985 -1440 / -1290 -45 / -45 Weight 58.967 kg 54.159 kg 54.159 kg 51.891 kg Constitutional Constitutional: no acute distress, thin, chronically ill appearing and cooperative *Routine HEENT Exam Head: Present normocephalic Eye: Present EOMI and PERRL ENT: Present mucous membranes moist *Routine Neck Exam Neck: Present supple; Absent lymphadenopathy *Routine Respiratory Exam Respiratory: Present crackles (Faint in lower lung [place]) and normal respiratory effort; Absent rhonchi or wheezes *Routine Cardiovascular Exam Cardiovascular: Present irregularly irregular Comments: Rate controlled *Routine Abdominal Exam Abdominal: Present soft and normoactive bowel sounds; Absent tenderness *Routine Rectal Exam Patient deferred: visual exam *Routine Exam Patient deferred: external exam *Routine Extremities Exam Extremities: Absent cyanosis, clubbing or edema Comments: Left AKA *Routine Skin Exam Skin: Present intact, warm and wounds (Right lower extremity); Absent rash *Routine Neurological Exam Neurological: Present alert, oriented X3 and moving all extremities; Absent altered mental status Results Data Completed and Pending Labs on day of discharge: Labs from last 24 hours 10/15/25 05:53 WBC 3.2 L RBC 2.48 L Hgb 9.7 L Hct 28.3 L MCV 114.1 H MCH 39.1 H MCHC 34.3 RDW 13.7 Plt Count 89 L MPV 12.9 H Neut % (Auto) 59.8 Lymph % (Auto) 32.4 [place] % (Auto) 6.9 Eos % (Auto) 0.3 Baso % (Auto) 0.3 Neut # (Auto) 1.9 Lymph # (Auto) 1.0 [place] # (Auto) 0.2 Eos # (Auto) 0.0 Baso # (Auto) 0.0 Sodium 137 Potassium 3.4 L Chloride 104 Carbon Dioxide 25 Anion Gap 11.4 BUN 27 H Creatinine 1.40 H Estimated Creat Clear 24 Estimated GFR 36 L Est GFR ( Amer) 43 L Glucose 90 Calcium 8.9 Magnesium 2.1 D Total Bilirubin 1.0 AST 36 ALT 20 Alkaline Phosphatase 131 H Total Protein 7.6 Albumin 3.8 Globulin 3.8 H Albumin/Globulin Ratio 1.0 L DS: Diagnosis Discharge Diagnosis (1) Seizure-like activity: Status: Acute Code(s): R29.818 - Other symptoms and signs involving the nervous system (2) AMS (altered mental status): Status: Acute Code(s): R41.82 - Altered mental status, unspecified (3) Diabetes mellitus: Status: Acute Code(s): E11.9 - Type 2 diabetes mellitus without complications (4) Peripheral vascular disease: Status: Acute Code(s): I73.9 - Peripheral vascular disease, unspecified (5) Hypertension: Status: Acute Code(s): I10 - Essential (primary) hypertension (6) Toxic encephalopathy: Status: Acute Code(s): G92.9 - Unspecified toxic encephalopathy Problem details: present on admission Meds Home Medications and Allergies Home Medications ?Medication ?Instructions ?Recorded ?Confirmed ?Type acetaminophen 500 mg tablet 500 mg PO Q6HP PRN Mild Pain 08/18/25 10/13/25 History (Scale Score 1-4) aspirin 81 mg tablet 81 mg PO DAILY #30 tabs 08/30/25 10/13/25 Rx cyanocobalamin (vitamin B-12) 1,000 mcg PO DAILY #30 tabs 08/30/25 10/13/25 Rx 1,000 mcg tablet furosemide 40 mg tablet (Lasix) 40 mg PO DAILY #30 tabs 08/30/25 10/13/25 Rx gabapentin 400 mg capsule 400 mg PO TID #90 caps 08/30/25 10/13/25 Rx latanoprost 0.005 % eye drops 1 drp Eye-Both HS #2.5 mL 08/30/25 10/13/25 Rx (Xalatan) losartan 25 mg tablet 25 mg PO DAILY #30 tabs 08/30/25 10/13/25 Rx Held on 10/15/25. Instructions: Pending follow-up with primary care and reevaluation of blood pressure pantoprazole 40 mg tablet,delayed 40 mg PO BID #60 tabs 08/30/25 10/13/25 Rx release (Protonix) ranolazine 1,000 mg 1,000 mg PO DAILY #30 tabs 08/30/25 10/13/25 Rx tablet,extended release,12 hr atorvastatin 40 mg tablet (Lipitor) 40 mg PO HS 10/13/25 10/13/25 History dorzolamide 2 % eye drops 1 drp ophthalmic (eye) HS 10/13/25 10/13/25 History nortriptyline 10 mg capsule 10 mg PO HS 10/13/25 10/13/25 History (Pamelor) oxycodone 5 mg tablet 5 mg PO TID 10/13/25 10/13/25 History levetiracetam 500 mg tablet 500 mg PO BID #60 tabs 10/15/25 Rx metoprolol tartrate 25 mg tablet 12.5 mg (1/2 x 25 mg) PO BID #60 10/15/25 10/13/25 Rx tabs New Prescriptions to Start Prescriptions: levetiracetam Kervin Jimenez Allergies Allergy/AdvReac Type Severity Reaction Status Date / Time nitrofurantoin (From Allergy Intermediate Rash Verified 08/18/25 20:18 Macrodantin) morphine Allergy Unknown Unknown Verified 08/18/25 20:18 allergy reaction Discharge Plan Disposition Patient Disposition: Home Health Service Condition: Fair Discharge Order Discharge Orders: Discharge Order (Routine); Ordered 10/15/25 Ordered By: Krevin Jimenez Follow up Plan Follow up with: Isidro Calderon MD [Primary Care Provider, Family Practice] - 10/25/25 1:00 pm Prescriptions/Medication Reconciliation: New levetiracetam 500 mg tablet 500 mg PO BID Qty: 60 0RF Continued acetaminophen 500 mg tablet 500 mg PO Q6HP PRN (Reason: Mild Pain (Scale Score 1-4)) aspirin 81 mg tablet 81 mg PO DAILY Qty: 30 0RF cyanocobalamin (vitamin B-12) 1,000 mcg tablet 1,000 mcg PO DAILY Qty: 30 0RF gabapentin 400 mg capsule 400 mg PO TID Qty: 90 0RF latanoprost [Xalatan] 0.005 % drops 1 drp Eye-Both HS Qty: 2.5 0RF pantoprazole [Protonix] 40 mg tablet,delayed release (DR/EC) 40 mg PO BID Qty: 60 0RF ranolazine 1,000 mg tablet extended release 12 hr 1,000 mg PO DAILY Qty: 30 0RF furosemide [Lasix] 40 mg tablet 40 mg PO DAILY Qty: 30 0RF atorvastatin [Lipitor] 40 mg tablet 40 mg PO HS nortriptyline [Pamelor] 10 mg capsule 10 mg PO HS dorzolamide 2 % drops 1 drp ophthalmic (eye) HS oxycodone 5 mg tablet 5 mg PO TID Changed metoprolol tartrate 25 mg tablet 12.5 mg PO BID Qty: 60 0RF Held losartan 25 mg tablet 25 mg PO DAILY Qty: 30 0RF Hold Instructions: Pending follow-up with primary care and reevaluation of blood pressure Problem Reconciliation Problems Reviewed?: Yes Patient Discharge Instructions ACTIVITY: Continue current activity DIET: continue same diet Patient Instructions: DI for Seizure (Not Epilepsy/Seizure Disorder), DI for Altered Mental Status Print Language: Grenadian Providers Primary Care Provider: Isidro Calderon Admit Provider: Zurdo Romo Attending Provider: Zurdo Romo
--- NOTE | 2025-10-15 12:13 | SW/DCPLANNER ---
Patient is already established with [facility]. Sylvie Jaime
--- NOTE | 2025-10-16 10:28 | SW/DCPLANNER ---
Spoke with patient's son on the phone. Patient's son stated that she is doing very well. Patient's son stated that he is aware of his moms upcoming appointments. Patient's son stated that he was able to get his moms medicine picked up. Patient's son stated that he has no concerns or questions at this time. Sylvie Jaime
--- OUTSIDE RECORDS SUMMARY | 2025-11-01 19:00 | XMS_ITS | Clinical Summary ---
Author Organization Unknown Care Team Providers Care Apprentice Lineman Third Step Name Role Phone VAN HAND M[employer]ICAN FOOD MAKER, NAY Unavailable Unavailable LACI RN, TOPHER Unavailable Unavailable OLIVIER SEWER BUILDER, ALEA Unavailable Unavailable KALPANA OT, WILLIAM Unavailable Unavailable JANIS PT, KING Unavailable Unavailable JUDITH LAUNDRY TECH, JOE Unavailable Unavailabl e LAWRENCE MANAGER DEMAND/PLEITEZ, MARIEA Unavailable Unavail able Payers Payer Name Policy Type Policy Number Effective Date Expira tion Date MEDICARE.[facility]ONTE.[facility] [id number] Problems Condition Name Condition Details Condition Category Status Onset Date Resolution Date Last Treatment Date Treating Clinician Comments CARDIAC ARRHYTHMIA, UNSPECIFIED Active 2024-10 00:00: 00 HYP HRT AND CHR KDNY DIS W HRT FAIL AND STG 1-4/UNSP CHR KDNY Active 2024-10 00:00: 00 HEART FAILURE, UNSPECIFIED Active 2024-10 00:00: 00 TYPE 2 DIABETES MELLITUS W DIABETIC CHRONIC KIDNEY DISEASE Active 2024-10 00:00: 00 CHRONIC KIDNEY DISEASE, STAGE 3A Active 2024-10 00:00: 00 ANEMIA IN CHRONIC KIDNEY DISEASE Active 2024-10 00:00: 00 TYPE 2 DIABETES W DIABETIC PERIPHERAL ANGIOPATH W/O GANGRENE Active 2024-10 00:00: 00 TYPE 2 DIABETES MELLITUS WITH DIABETIC POLYNEUROPAT HY Active 2024-10 00:00: 00 ATHSCL HEART DISEASE OF [place] CORONARY ARTERY W/O ANG PCTRS Active 2024-10 00:00: 00 CHRONIC ATRIAL FIBRILLATION , UNSPECIFIED Active 2024-10 00:00: 00 EMPHYSEMA, UNSPECIFIED Active 2024-10 00:00: 00 PRIMARY GENERALIZED (OSTEO)ARTHR ITIS Active 2024-10 00:00: 00 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, R EYE, SEVERE STAGE Active 2024-10 00:00: 00 OBSTRUCTIVE SLEEP APNEA (ADULT) (PEDIATRIC) Active 2024-10 00:00: 00 CONSTIPATION , UNSPECIFIED Active 2024-10 00:00: 00 RETENTION OF URINE, UNSPECIFIED Active 2024-10 00:00: 00 GASTRO-ESOPH AGEAL REFLUX DISEASE WITHOUT ESOPHAGITIS Active 2024-10 00:00: 00 HYPERLIPIDEM IA, UNSPECIFIED Active 2024-10 00:00: 00 REPEATED FALLS Active 2024-10 00:00: 00 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 Ordering Clinician Indication Dosage Frequency Signature (SIG) Comments Components acetaminoph en 325 mg capsule 02-14 00:00: 00 08-29 23:59 :00 No [id number] PAIN 2 capsule EVERY 6 HOURS 2 capsule EVERY 6 HOURS (route: oral) Med Classific ation: Analgesic , Anti-infl ammatory or Antipyret ic alprazolam 0.25 mg disintegrat ing tablet 02-14 00:00: 00 08-29 23:59 :00 No [id number] ANXIETY 2 tablet DAILY 2 tablet DAILY (route: oral) Med Classific ation: Central Nervous System Agents aspirin 325 mg tablet,jenny yed release 02-14 00:00: 00 08-29 23:59 :00 No [id number] HEART 1 tablet DAILY 1 tablet DAILY (route: oral) Med Classific ation: Analgesic , Anti-infl ammatory or Antipyret ic atorvastati n 40 mg tablet 02-14 00:00: 00 08-29 23:59 :00 No [id number] HYPERLIPIDE PINKY 1 tablet DAILY 1 tablet DAILY (route: oral) Med Classific ation: Cardiovas cular Therapy Agents carvedilol 12.5 mg tablet 02-14 00:00: 00 08-29 23:59 :00 No [id number] HYPERTENSIO N 1 tablet 2 TIMES DAILY 1 tablet 2 TIMES DAILY (route: oral) Med Classific ation: Cardiovas cular Therapy Agents clopidogrel 75 mg tablet 02-14 00:00: 00 08-29 23:59 :00 No [id number] HEART 1 tablet DAILY 1 tablet DAILY (route: oral) Med Classific ation: Hematolog ical Agents dorzolamide -timolol (PF) 2 %-0.5 % eye drops in a dropperette 02-14 00:00: 00 08-29 23:59 :00 No [id number] GLAUCOMA 1 dropper ette 2 TIMES DAILY 1 dropperett e 2 TIMES DAILY (route: ophthalmic (eye)) Med Classific ation: Ophthalmi c Agents doxycycline hyclate 100 mg capsule 02-14 00:00: 00 08-29 23:59 :00 No [id number] INFECTION 1 capsule 2 TIMES DAILY 1 capsule 2 TIMES DAILY (route: oral) Med Classific ation: Anti-Infe ctive Agents enoxaparin 40 mg/0.4 mL subcutaneou s syringe 02-14 00:00: 00 08-29 23:59 :00 No [id number] BLOOD THINNER 40 mg DAILY 40 mg DAILY (route: subcutaneo us) Med Classific ation: Hematolog ical Agents ketorolac 10 mg tablet 02-14 00:00: 00 08-29 23:59 :00 No [id number] PAIN 1 tablet EVERY 6 HOURS 1 tablet EVERY 6 HOURS (route: oral) Med Classific ation: Analgesic , Anti-infl ammatory or Antipyret ic latanoprost 0.005 % eye drops 02-14 00:00: 08-29 23:59 :00 No [id number] GLAUCOMA 1 drops DAILY 1 drops DAILY (route: ophthalmic (eye)) Med Classific ation: Ophthalmi c Agents ondansetron 4 mg disintegrat ing tablet 02-14 00:00: 00 08-29 23:59 :00 No [id number] NAUSEA 1 tablet EVERY 4 HOURS 1 tablet EVERY 4 HOURS (route: oral) Med Classific ation: Gastroint estinal Therapy Agents oxycodone 10 mg tablet 02-14 00:00: 00 08-29 23:59 :00 No [id number] PAIN 1 tablet EVERY 4 HOURS 1 tablet EVERY 4 HOURS (route: oral) Med Classific ation: Analgesic , Anti-infl ammatory or Antipyret ic OxyContin 10 mg tablet,sarkis h resistant,e xtended release 02-14 00:00: 00 08-29 23:59 :00 No [id number] PAIN 1 tablet 2 TIMES DAILY 1 tablet 2 TIMES DAILY (route: oral) Med Classific ation: Analgesic , Anti-infl ammatory or Antipyret ic polyethylen e glycol 3350 17 gram/dose oral powder 02-14 00:00: 00 08-29 23:59 :00 No [id number] CONSTIPATIO N 17 gram DAILY 17 gram DAILY (route: oral) Med Classific ation: Gastroint estinal Therapy Agents potassium chloride ER 20 mEq tablet,exte nded release(par t/cryst) 02-14 00:00: 00 08-29 23:59 :00 No [id number] SUPPLEMENTS 1 tablet DAILY 1 tablet DAILY (route: oral) Med Classific ation: Electroly te Balance-N utritiona l Products sennosides 8.6 mg tablet 02-14 00:00: 00 08-29 23:59 :00 No [id number] CONSTIPATIO N 2 tablet DAILY 2 tablet DAILY (route: oral) Med Classific ation: Gastroint estinal Therapy Agents acetaminoph en 500 mg tablet 2024-10 1-19 00:00: 00 Yes [id number] PHANTOM LIMB PAIN 1 tablet EVERY 6 HOURS 1 tablet EVERY 6 HOURS (route: oral) Med Classific ation: Analgesic , Anti-infl ammatory or Antipyret ic Aspirin Childrens 81 mg chewable tablet 2024-10 00:00: 00 Yes [id number] ATRIAL FIBRILLATIO N 1 tablet DAILY 1 tablet DAILY (route: oral) Med Classific ation: Hematolog ical Agents atorvastati n 40 mg tablet 2024-10 00:00: 00 Yes [id number] CHOLESTEROL 1 tablet EVERY PM 1 tablet EVERY PM (route: oral) Med Classific ation: Cardiovas cular Therapy Agents cyanocobala min (vit B-12) 1,000 mcg tablet 2024-10 00:00: 00 Yes [id number] ANEMIA 1 tablet DAILY 1 tablet DAILY (route: oral) Med Classific ation: Electroly te Balance-N utritiona l Products furosemide 40 mg tablet 2024-10 00:00: 00 Yes [id number] PULMONARY EDEMA 1 tablet DAILY 1 tablet DAILY (route: oral) Med Classific ation: Cardiovas cular Therapy Agents gabapentin 400 mg capsule 2024-10 00:00: 00 Yes [id number] POLYNEUROPA THY 1 capsule 3 TIMES DAILY 1 capsule 3 TIMES DAILY (route: oral) Med Classific ation: Central Nervous System Agents losartan 25 mg tablet 2024-10 00:00: 00 Yes [id number] BLOOD PRESSURE 1 tablet DAILY 1 tablet DAILY (route: oral) Med Classific ation: Cardiovas cular Therapy Agents metoprolol tartrate 25 mg tablet 2024-10 00:00: 00 Yes [id number] CHOLESTEROL 1 tablet 2 TIMES DAILY 1 tablet 2 TIMES DAILY (route: oral) Med Classific ation: Cardiovas cular Therapy Agents nortriptyli ne 10 mg capsule 2024-10 00:00: 00 Yes [id number] ANTIDEPRESS ANT 1 capsule EVERY PM 1 capsule EVERY PM (route: oral) Med Classific ation: Central Nervous System Agents oxycodone 5 mg tablet 2024-10 00:00: 00 Yes [id number] PAIN 1 tablet 3 TIMES DAILY 1 tablet 3 TIMES DAILY (route: oral) Med Classific ation: Analgesic , Anti-infl ammatory or Antipyret ic pantoprazol e 40 mg tablet,jenny yed release 2024-10 00:00: 00 Yes [id number] ACID REFLUX 1 tablet 2 TIMES DAILY 1 tablet 2 TIMES DAILY (route: oral) Med Classific ation: Gastroint estinal Therapy Agents polyethylen e glycol 3350 17 gram oral powder packet 2024-10 00:00: 00 Yes [id number] CONSTIPATIO N 1 packet DAILY 1 packet DAILY (route: oral) Med Classific ation: Gastroint estinal Therapy Agents ranolazine ER 1,000 mg tablet,exte nded release,12 hr 2024-10 00:00: 00 Yes [id number] ATRIAL FIRBRILLATI ON 1 tablet DAILY 1 tablet DAILY (route: oral) Med Classific ation: Cardiovas cular Therapy Agents Vital Signs Vital Name Observation Time Observation Value Commen ts Temperature 2025-10-08 10:36:00.000 97.3 [degF] Temperature 2025-10-07 15:10:00.000 98.7 [degF] Temperature 2025-10-04 11:33:00.000 98.2 [degF] Temperature 2025-10-02 12:26:00.000 97.5 [degF] Temperature 2025-10-01 09:01:00.000 97.4 [degF] Temperature 2025-09-27 11:59:00.000 98.7 [degF] Temperature 2025-09-25 12:15:00.000 98.4 [degF] Temperature 2025-09-23 15:03:00.000 97.8 [degF] Temperature 2025-09-18 15:50:00.000 98.2 [degF] Temperature 2025-09-18 10:30:00.000 97.5 [degF] Temperature 2025-09-17 16:25:00.000 98.1 [degF] Temperature 2025-09-06 13:30:00.000 97.9 [degF] Temperature 2025-09-06 11:02:00.000 97.6 [degF] Temperature 2025-09-04 14:45:00.000 96.5 [degF] Height 2025-09-04 13:42:22.000 62 [in_us] Pulse 2025-10-08 10:36:00.000 76 /min Pulse 2025-10-07 15:10:00.000 66 /min Pulse 2025-10-04 11:33:00.000 88 /min Pulse 2025-10-02 12:26:00.000 77 /min Pulse 2025-10-01 09:01:00.000 74 /min Pulse 2025-09-27 11:59:00.000 86 /min Pulse 2025-09-25 12:15:00.000 92 /min Pulse 2025-09-23 15:03:00.000 62 /min Pulse 2025-09-18 15:50:00.000 90 /min Pulse 2025-09-18 10:30:00.000 80 /min Pulse 2025-09-17 16:25:00.000 94 /min Pulse 2025-09-06 13:30:00.000 66 /min Pulse 2025-09-06 11:02:00.000 96 /min Pulse 2025-09-04 14:45:00.000 77 /min O2 Saturation (%) 2025-10-08 10:36:00.000 100 % O2 Saturation (%) 2025-10-07 15:10:00.000 100 % O2 Saturation (%) 2025-10-04 11:33:00.000 97 % O2 Saturation (%) 2025-10-02 12:26:00.000 99 % O2 Saturation (%) 2025-10-01 09:01:00.000 99 % O2 Saturation (%) 2025-09-27 11:59:00.000 98 % O2 Saturation (%) 2025-09-25 12:15:00.000 99 % O2 Saturation (%) 2025-09-23 15:03:00.000 98 % O2 Saturation (%) 2025-09-18 15:50:00.000 100 % O2 Saturation (%) 2025-09-18 10:30:00.000 100 % O2 Saturation (%) 2025-09-17 16:25:00.000 99 % O2 Saturation (%) 2025-09-06 13:30:00.000 97 % O2 Saturation (%) 2025-09-06 11:02:00.000 98 % O2 Saturation (%) 2025-09-04 14:45:00.000 98 % Respirations 2025-10-08 10:36:00.000 16 /min Respirations 2025-10-07 15:10:00.000 18 /min Respirations 2025-10-04 11:33:00.000 16 /min Respirations 2025-10-02 12:26:00.000 18 /min Respirations 2025-10-01 09:01:00.000 18 /min Respirations 2025-09-27 11:59:00.000 18 /min Respirations 2025-09-25 12:15:00.000 18 /min Respirations 2025-09-23 15:03:00.000 18 /min Respirations 2025-09-18 15:50:00.000 16 /min Respirations 2025-09-18 10:30:00.000 18 /min Respirations 2025-09-17 16:25:00.000 18 /min Respirations 2025-09-06 13:30:00.000 16 /min Respirations 2025-09-06 11:02:00.000 18 /min Respirations 2025-09-04 14:45:00.000 18 /min Weight (lbs) 2025-09-04 13:42:27.000 Systolic Blood Pressure 2025-10-08 10:36:00.000 122 mm [Hg] Systolic Blood Pressure 2025-10-07 15:10:00.000 132 mm [Hg] Systolic Blood Pressure 2025-10-04 11:33:00.000 118 mm [Hg] Systolic Blood Pressure 2025-10-02 12:26:00.000 122 mm [Hg] Systolic Blood Pressure 2025-10-01 09:01:00.000 121 mm [Hg] Systolic Blood Pressure 2025-09-27 11:59:00.000 118 mm [Hg] Systolic Blood Pressure 2025-09-25 12:15:00.000 140 mm [Hg] Systolic Blood Pressure 2025-09-23 15:03:00.000 118 mm [Hg] Systolic Blood Pressure 2025-09-18 15:50:00.000 132 mm [Hg] Systolic Blood Pressure 2025-09-18 10:30:00.000 104 mm [Hg] Systolic Blood Pressure 2025-09-17 16:25:00.000 142 mm [Hg] Systolic Blood Pressure 2025-09-06 13:30:00.000 118 mm [Hg] Systolic Blood Pressure 2025-09-06 11:02:00.000 104 mm [Hg] Systolic Blood Pressure 2025-09-04 14:45:00.000 100 mm [Hg] Diastolic Blood Pressure 2025-10-08 10:36:00.000 70 mm [Hg] Diastolic Blood Pressure 2025-10-07 15:10:00.000 62 mm [Hg] Diastolic Blood Pressure 2025-10-04 11:33:00.000 68 mm [Hg] Diastolic Blood Pressure 2025-10-02 12:26:00.000 66 mm [Hg] Diastolic Blood Pressure 2025-10-01 09:01:00.000 70 mm [Hg] Diastolic Blood Pressure 2025-09-27 11:59:00.000 70 mm [Hg] Diastolic Blood Pressure 2025-09-25 12:15:00.000 79 mm [Hg] Diastolic Blood Pressure 2025-09-23 15:03:00.000 74 mm [Hg] Diastolic Blood Pressure 2025-09-18 15:50:00.000 90 mm [Hg] Diastolic Blood Pressure 2025-09-18 10:30:00.000 62 mm [Hg] Diastolic Blood Pressure 2025-09-17 16:25:00.000 62 mm [Hg] Diastolic Blood Pressure 2025-09-06 13:30:00.000 68 mm [Hg] Diastolic Blood Pressure 2025-09-06 11:02:00.000 64 mm [Hg] Diastolic Blood Pressure 2025-09-04 14:45:00.000 65 mm [Hg] Plan of Treatment Planned Activity Planned Date Details Comments Future Scheduled Test RN TO OBSE RVE, ASSESS, EVALUATE, AND DEVELOP AN INDIVIDUALIZED PLAN OF CARE. AGENCY MAY ACCEPT ORDERS FROM CONSULTING PHYSICIANS NAY RIBERA WASPEE, RN TO OBSERVE AND ASSESS, SEWER BUILDER/TRAFFIC LAW ATTORNEY TO OBSERVE FOR RISK FOR FALLS AND INSTRUCT IN FALL PREVENTION, HOME SAFETY, MEDICATION MANAGEMENT, INFECTION PREVENTION, AND NUTRITION MANAGEMENT. RN/SEWER BUILDER/TRAFFIC LAW ATTORNEY NURSE MAY PERFORM O2 SATURATION LEVEL ON ADMISSION AND PRN FOR RN TO ASSESS/SEWER BUILDER TO OBSERVE PATIENT, WITH NOTIFICATION TO THE PHYSICIAN IF SATURATION IS 90% IN THE ABSENCE OF MORE SPECIFIC PARAMETERS FROM THE PHYSICIAN. AGENCY MAY PERFORM A RESUMPTION OF CARE VISIT FOLLOWING ANY HOSPITAL ADMISSION. RN/SEWER BUILDER/TRAFFIC LAW ATTORNEY TO MONITOR CO-MORBID CONDITIONS LISTED ON THE PLAN OF CARE AND ANY NEW CONDITIONS THAT PRESENT THEMSELVES DURING THIS EPISODE TO IDENTIFY CHANGES AND INTERVENE TO MINIMIZE COMPLICATIONS. [code = RN TO OBSERVE, ASSESS, EVALUATE, AND DEVELOP AN INDIVIDUALIZED PLAN OF CARE. AGENCY MAY ACCEPT ORDERS FROM CONSULTING PHYSICIANS NAY RIBERA WASPEE, RN TO OBSERVE AND ASSESS, SEWER BUILDER/TRAFFIC LAW ATTORNEY TO OBSERVE FOR RISK FOR FALLS AND INSTRUCT IN FALL PREVENTION, HOME SAFETY, MEDICATION MANAGEMENT, INFECTION PREVENTION, AND NUTRITION MANAGEMENT. RN/SEWER BUILDER/TRAFFIC LAW ATTORNEY NURSE MAY PERFORM O2 SATURATION LEVEL ON ADMISSION AND PRN FOR RN TO ASSESS/SEWER BUILDER TO OBSERVE PATIENT, WITH NOTIFICATION TO THE PHYSICIAN IF SATURATION IS 90% IN THE ABSENCE OF MORE SPECIFIC PARAMETERS FROM THE PHYSICIAN. AGENCY MAY PERFORM A RESUMPTION OF CARE VISIT FOLLOWING ANY HOSPITAL ADMISSION. RN/SEWER BUILDER/TRAFFIC LAW ATTORNEY TO MONITOR CO-MORBID CONDITIONS LISTED ON THE PLAN OF CARE AND ANY NEW CONDITIONS THAT PRESENT THEMSELVES DURING THIS EPISODE TO IDENTIFY CHANGES AND INTERVENE TO MINIMIZE COMPLICATIONS.] Future Scheduled Test MEDICATION MANAGEMENT; RN/SEWER BUILDER/TRAFFIC LAW ATTORNEY TO REVIEW MEDICATIONS FOR INTERACTIONS, EFFECTIVENESS OF DRUG THERAPY, AND SIGNS/SYMPTOMS OF ADVERSE REACTIONS. MAY INSTRUCT AND REINFORCE MEDICATION TEACHING RELATED TO THE USE OF MEDICATIONS, DOSAGE, FREQUENCY, PURPOSE, SIDE EFFECTS, AND TO REPORT COMPLICATIONS. [code = MEDICATION MANAGEMENT; RN/SEWER BUILDER/TRAFFIC LAW ATTORNEY TO REVIEW MEDICATIONS FOR INTERACTIONS, EFFECTIVENESS OF DRUG THERAPY, AND SIGNS/SYMPTOMS OF ADVERSE REACTIONS. MAY INSTRUCT AND REINFORCE MEDICATION TEACHING RELATED TO THE USE OF MEDICATIONS, DOSAGE, FREQUENCY, PURPOSE, SIDE EFFECTS, AND TO REPORT COMPLICATIONS.] Future Scheduled Test RN/SEWER BUILDER/TRAFFIC LAW ATTORNEY TO PERFORM/TEACH PATIENT/CAREGIVER WOUND CARE TO LEFT ARM SKIN TEAR: IRRIGATE/CLEANSE WITH WOUND WASH APPLY EXEROFORM MAY APPLY SKIN BARRIER TO MARILYNN WOUND PRN TO PREVENT MACERATION PLACE 4X4 BORDER GAUZE CHANGE DRESSING EVERY OTHER DAY BY SN AND CAREGIVER TO PERFORM WOUND CARE IN ABSENCE OF SN. PRN FOR SOILING AND DISLODGEMENT [code = RN/SEWER BUILDER/TRAFFIC LAW ATTORNEY TO PERFORM/TEACH PATIENT/CAREGIVER WOUND CARE TO LEFT ARM SKIN TEAR: IRRIGATE/CLEANSE WITH WOUND WASH APPLY EXEROFORM MAY APPLY SKIN BARRIER TO [place] WOUND PRN TO PREVENT MACERATION PLACE 4X4 BORDER GAUZE CHANGE DRESSING EVERY OTHER DAY BY SN AND CAREGIVER TO PERFORM WOUND CARE IN ABSENCE OF SN. PRN FOR SOILING AND DISLODGEMENT] Future Scheduled Test PAIN MANAG EMENT; RN TO ASSESS AND TEACH, TRAFFIC LAW ATTORNEY/SEWER BUILDER TO OBSERVE AND TEACH AND PROVIDE EDUCATION ON PAIN MANAGEMENT TECHNIQUES. [code = PAIN MANAGEMENT; RN TO ASSESS AND TEACH, TRAFFIC LAW ATTORNEY/SEWER BUILDER TO OBSERVE AND TEACH AND PROVIDE EDUCATION ON PAIN MANAGEMENT TECHNIQUES.] Future Scheduled Test PHYSICAL T HERAPIST TO EVALUATE FOR STRENGTH, ENDURANCE, GAIT, BALANCE [code = PHYSICAL THERAPIST TO EVALUATE FOR STRENGTH, ENDURANCE, GAIT, BALANCE] Future Scheduled Test OCCUPATION AL THERAPIST TO EVALUATE FOR ADLS AND IADLS [code = OCCUPATIONAL THERAPIST TO EVALUATE FOR ADLS AND IADLS] Future Scheduled Test PRN VISITS ; NUMBER OF RN/SEWER BUILDER/TRAFFIC LAW ATTORNEY VISITS: 2 RN/SEWER BUILDER/TRAFFIC LAW ATTORNEY TO PERFORM: WOUND EVALUATION FOR THE FOLLOWING REASONS: REDNESS, WARMTH, SWELLING, PURULENT DRAINAGE [code = PRN VISITS; NUMBER OF RN/SEWER BUILDER/TRAFFIC LAW ATTORNEY VISITS: 2 RN/SEWER BUILDER/TRAFFIC LAW ATTORNEY TO PERFORM: WOUND EVALUATION FOR THE FOLLOWING REASONS: REDNESS, WARMTH, SWELLING, PURULENT DRAINAGE] Future Scheduled Test FALL REDUC TION MANAGEMENT; RN TO ASSESS AND OBSERVE, SEWER BUILDER/TRAFFIC LAW ATTORNEY TO OBSERVE FALL RISK FACTORS AND EDUCATE PATIENT/CAREGIVER ON STRATEGIES TO MINIMIZE THE RISK OF FALLING. [code = FALL REDUCTION MANAGEMENT; RN TO ASSESS AND OBSERVE, SEWER BUILDER/TRAFFIC LAW ATTORNEY TO OBSERVE FALL RISK FACTORS AND EDUCATE PATIENT/CAREGIVER ON STRATEGIES TO MINIMIZE THE RISK OF FALLING.] Future Scheduled Test AGENCY MAY PERFORM A RESUMPTION OF CARE VISIT FOLLOWING ANY HOSPITAL ADMISSION. OT TO EVALUATE, OBSERVE / ASSESS, AND MONITOR, MANAGER DEMAND TO OBSERVE AND MONITOR, PROVIDE SKILLED THERAPEUTIC INTERVENTION, ACTIVITY, EDUCATION, AND TRAINING TO ADDRESS ADLS/IADLS, ADAPTIVE EQUIPMENT, STRENGTHENING, BALANCE, AND FUNCTIONAL TRANSFERS TO MAXIMIZE SAFETY AND FUNCTIONAL INDEPENDENCE IN HOME BATHING/SHOWERING (OT/JACKIE) DRESSING (OT/MANAGER DEMAND) ACTIVITIES OF DAILY LIVING (OT/JACKIE) MEAL PREPARATION AND CLEANUP (OT/JACKIE) LIGHT HOUSEKEEPING (OT/MANAGER DEMAND) BED TRANSFERS (OT/JACKIE) TOILET TRANSFER (OT/MANAGER DEMAND) BATH/SHOWER TRANSFER (OT/MANAGER DEMAND) THERAPEUTIC EXERCISE (OT/JACKIE) OT TO ASSESS / MANAGER DEMAND TO MONITOR FOR HEART FAILURE EXACERBATION AND RECORD PATIENT REPORTED WEIGHT, AND NOTIFY THE PHYSICIAN AND/OR THE RN CLINICAL REFINERY OPERATOR REFORMING UNIT FOR PHYSICIAN NOTIFICATION OF HF EXACERBATION (2LB WEIGHT GAIN IN 1 DAY, 5LBS IN A WEEK OR 5 LBS OVER BASELINE; INCREASED SOB, EDEMA, NEEDING MORE PILLOWS AT NIGHT, CRACKLES IN BASIS OF THE LUNGS OR PMI SHIFT). OT TO ASSESS / MANAGER DEMAND TO MONITOR CARDIO/RESPIRATORY SYSTEM; AND NOTIFY THE PHYSICIAN AND/OR THE RN CLINICAL REFINERY OPERATOR REFORMING UNIT FOR PHYSICIAN NOTIFICATION FOR EARLY SIGNS AND SYMPTOMS OF EXACERBATION OR DETERIORATION. [code = AGENCY MAY PERFORM A RESUMPTION OF CARE VISIT FOLLOWING ANY HOSPITAL ADMISSION. OT TO EVALUATE, OBSERVE / ASSESS, AND MONITOR, JACKIE TO OBSERVE AND MONITOR, PROVIDE SKILLED THERAPEUTIC INTERVENTION, ACTIVITY, EDUCATION, AND TRAINING TO ADDRESS ADLS/IADLS, ADAPTIVE EQUIPMENT, STRENGTHENING, BALANCE, AND FUNCTIONAL TRANSFERS TO MAXIMIZE SAFETY AND FUNCTIONAL INDEPENDENCE IN HOME BATHING/SHOWERING (OT/MANAGER DEMAND) DRESSING (OT/JACKIE) ACTIVITIES OF DAILY LIVING (OT/JACKIE) MEAL PREPARATION AND CLEANUP (OT/JACKIE) LIGHT HOUSEKEEPING (OT/JACKIE) BED TRANSFERS (OT/MANAGER DEMAND) TOILET TRANSFER (OT/JACKIE) BATH/SHOWER TRANSFER (OT/MANAGER DEMAND) THERAPEUTIC EXERCISE (OT/JACKIE) OT TO ASSESS / MANAGER DEMAND TO MONITOR FOR HEART FAILURE EXACERBATION AND RECORD PATIENT REPORTED WEIGHT, AND NOTIFY THE PHYSICIAN AND/OR THE RN CLINICAL REFINERY OPERATOR REFORMING UNIT FOR PHYSICIAN NOTIFICATION OF HF EXACERBATION (2LB WEIGHT GAIN IN 1 DAY, 5LBS IN A WEEK OR 5 LBS OVER BASELINE; INCREASED SOB, EDEMA, NEEDING MORE PILLOWS AT NIGHT, CRACKLES IN BASIS OF THE LUNGS OR PMI SHIFT). OT TO ASSESS / JACKIE TO MONITOR CARDIO/RESPIRATORY SYSTEM; AND NOTIFY THE PHYSICIAN AND/OR THE RN CLINICAL REFINERY OPERATOR REFORMING UNIT FOR PHYSICIAN NOTIFICATION FOR EARLY SIGNS AND SYMPTOMS OF EXACERBATION OR DETERIORATION.] Goal Patient Goal - TO GAIN STREN GTH Goal Provider Goal - A PLAN OF CARE WILL BE ESTABLISHED THAT MEETS THE PATIENT S NEEDS. PATIENT WILL DEMONSTRATE OXYGEN SATURATION WITHIN NORMAL LIMITS OR PATIENT S OPTIMAL LEVEL ESTABLISHED BY THE PHYSICIAN THROUGHOUT CARE. CHANGES TO CO-MORBID CONDITIONS AND ANY NEW CONDITIONS WILL BE IDENTIFIED AND REPORTED TO THE PHYSICIAN. Goal Provider Goal - PATIENT/CAREGIVER TO VERBALIZE, AND CONSISTENTLY DEMONSTRATE EFFECTIVE, SAFE MANAGEMENT OF MEDICATION INCLUDING KNOWLEDGE OF EFFECTIVENESS, POTENTIAL SIDE EFFECTS AND DRUG REACTIONS AND WHEN TO CONTACT THE APPROPRIATE CARE PROVIDER. PATIENT/CAREGIVER WILL BE ABLE TO VERBALIZE UNDERSTANDING OF MEDICATION REGIMEN AND ACCURATELY TAKE MEDICATIONS PRESCRIBED WITHOUT ADVERSE EFFECTS BY 11/01/24 Goal Provider Goal - PATIENT / CAREGIVER WILL VERBALIZE/DEMONSTRATE ABILITY TO PERFORM WOUND CARE. WOUND STATUS WILL IMPROVE EVIDENCED BY A DECREASE IN SIZE, DRAINAGE, ABSENCE OF INFECTION, AND DECREASED PAIN BY 11/01/24 Goal Provider Goal - PATIENT / CAREGIVER WILL VERBALIZE / DEMONSTRATE UNDERSTANDING OF PAIN CONTROL MEASURES BY 11/01/25 Goal Provider Goal - Goal Provider Goal - Goal Provider Goal - Goal Provider Goal - PATIENT/CAREGIVER WILL VERBALIZE/DEMONSTRATE UNDERSTANDING OF FALL RISK FACTORS AND IMPLEMENT STRATEGIES TO MINIMIZE FALL RISK. PATIENT/CAREGIVER WILL VERBALIZE/DEMONSTRATE AN ABILITY TO ADHERE TO FALL REDUCTION SELF-MANAGEMENT AND LIFE-STYLE CHANGES BY 11/01/25 Goal Provider Goal - OT STG: PATIENT WILL DEMONSTRATE IMPROVED ABILITY TO PERFORM BATHING/SHOWERING AND REDUCE CAREGIVER BURDEN FROM MAX A TO MIN AWITHIN 4 WEEKS OT LTG: PATIENT WILL DEMONSTRATE IMPROVED ABILITY TO PERFORM BATHING/SHOWERING AND REDUCE CAREGIVER BURDEN FROM MAX A TO INDEPENDENT WITHIN 9 WEEKS OT STG: PATIENT WILL DEMONSTRATE IMPROVED ABILITY TO PERFORM UPPER BODY DRESSING TO REDUCE CAREGIVER BURDEN FROM MIN A TO SBA WITHIN 4 WEEKS OT LTG: PATIENT WILL DEMONSTRATE IMPROVED ABILITY TO PERFORM UPPER BODY DRESSING TO REDUCE CAREGIVER BURDEN FROM MIN A TO INDEPENDENT WITHIN 9 WEEKS OT STG: PATIENT WILL DEMONSTRATE IMPROVED ABILITY TO PERFORM LOWER BODY DRESSING TO REDUCE CAREGIVER BURDEN FROM MOD A TO CGA WITHIN 4 WEEKS OT LTG: PATIENT WILL DEMONSTRATE IMPROVED ABILITY TO PERFORM LOWER BODY DRESSING TO REDUCE CAREGIVER BURDEN FROM MOD A TO INDEPENDENT WITHIN 9 WEEKS OT LTG: PATIENT WILL DEMONSTRATE IMPROVEMENT IN MODIFIED SHARMILA INDEX SCORE FROM 52 TO 84 INDICATING DECREASED DEPENDENCY ON CAREGIVER ASSISTANCE WITH ACTIVITIES OF DAILY LIVING WITHIN 9 WEEKS OT STG: PATIENT WILL DEMONSTRATE THE ABILITY TO COMPLETE MEAL PREPARATION AND CLEANUP TO REDUCE CAREGIVER BURDEN FROM MOD A TO CGA WITHIN 4 WEEKS OT LTG: PATIENT WILL DEMONSTRATE THE ABILITY TO COMPLETE MEAL PREPARATION AND CLEANUP TO REDUCE CAREGIVER BURDEN FROM MOD A TO INDEPENDENT WITHIN 9 WEEKS OT STG: PATIENT WILL DEMONSTRATE THE ABILITY TO COMPLETE LIGHT HOUSEKEEPING FOR IMPROVED QUALITY OF LIFE FROM MAX A TO MIN A WITHIN 4 WEEKS OT LTG: PATIENT WILL DEMONSTRATE THE ABILITY TO COMPLETE LIGHT HOUSEKEEPING FOR IMPROVED QUALITY OF LIFE FROM MAX A TO INDEPENDENT WITHIN 9 WEEKS OT STG:PATIENT WILL DEMONSTRATE IMPROVED ABILITY TO PERFORM BED TRANSFERS IN ORDER TO REDUCE RISK OF SKIN BREAKDOWN AND TO IMPROVE PARTICIPATION IN ADLS FROM MIN A TO SBA WITHIN 4 WEEKS OT LTG: PATIENT WILL DEMONSTRATE IMPROVED ABILITY TO PERFORM BED TRANSFERS IN ORDER TO REDUCE RISK OF SKIN BREAKDOWN AND TO IMPROVE PARTICIPATION IN ADLS FROM MIN A TO INDEPENDENT WITHIN 9 WEEKS OT STG: PATIENT WILL DEMONSTRATE IMPROVED ABILITY TO PERFORM TOILET TRANSFERS TO REDUCE FALL RISK AND RISK OF INCONTINENCE AND UTI DEVELOPMENT FROM MOD A TO CGA WITHIN 4 WEEKS OT LTG: PATIENT WILL DEMONSTRATE IMPROVED ABILITY TO PERFORM TOILET TRANSFERS TO REDUCE FALL RISK AND RISK OF INCONTINENCE AND UTI DEVELOPMENT FROM MOD A TO INDEPENDENT WITHIN 9 WEEKS OT STG: PATIENT WILL DEMONSTRATE IMPROVED ABILITY AND SAFETY TO PERFORM BATH/SHOWER TRANSFER FROM UNABLE TO MOD A WITHIN 4 WEEKS OT LTG: PATIENT WILL DEMONSTRATE IMPROVED ABILITY AND SAFETY TO PERFORM BATH/SHOWER TRANSFER FROM UNABLE TO INDEPENDENT WITHIN 9 WEEKS OT LTG: PATIENT WILL DEMONSTRATE IMPROVED RUE MUSCLE STRENGTH EVIDENCED BY AN IMPROVEMENT IN MMT/FUNCTIONAL STRENGTH FROM 3+/5 TO 4/5 WITHIN 9 WEEKS IN ORDER TO MAXIMIZE ADL PERFORMANCE OT LTG: PATIENT WILL DEMONSTRATE IMPROVED ROM IN LEFT SHOULDER FLEXION FROM 40 DEGREES TO 90 DEGREES WITHIN 9 WEEKS IN ORDER TO MAXIMIZE ADL PERFORMANCE LTG OT: PATIENT S HEART FAILURE WILL REMAIN WELL CONTROLLED THROUGHOUT THE EPISODE OF CARE. OT LTG: PATIENT WILL NOT EXPERIENCE CARDIAC OR RESPIRATORY COMPLICATIONS THROUGHOUT THE EPISODE OF CARE. Encounters Start Date/Time End Date/Time Encounter Type Admission Type Attending [facility] Care Department Encounter ID Discharge Date Discharge Status Discharge Condition Discharge Reason Percent Goals Met 2025-09-04 00:00:00 2025-11-02 00:00:00 Outpatient TOPHER KING [facility] [id number] 13.16
--- OUTSIDE RECORDS SUMMARY | 2025-11-01 19:00 | XMS_ITS | Clinical Summary ---
Author Organization Unknown Care Team Providers Care Lidar Analyst Name Role Phone VAN TECHNOLOGY ADMINISTRATOR, NAY Unavailable Unavailable LACI RN, TOPHER Unavailable Unavailable OLIVIER SHEET FED PRINTER, ALEA Unavailable Unavailable KALPANA OT, WILLIAM Unavailable Unavailable JANIS PT, KING Unavailable Unavailable JUDITH PHLEBOTOMY SUPERVISOR, JOE Unavailable Unavailabl e [employer] CHANNEL EXECUTIVE/PLEITEZ, MARIEA Unavailable Unavail able Payers Payer Name Policy Type Policy Number Effective Date Expira tion Date MEDICARE.[facility] [id number] Problems Condition Name Condition Details Condition Category [...] 2024-10 00:00: 00 ATHSCL HEART DISEASE OF [place] CORONARY ARTERY W/O ANG PCTRS Active 2024-10 [...] 02-14 00:00: 00 08-29 23:59 :00 No [id number] PAIN 2 capsule EVERY 6 HOURS 2 capsule EVERY 6 HOURS (route: oral) Med Classific ation: Analgesic , Anti-infl ammatory or Antipyret ic alprazolam 0.25 mg disintegrat ing tablet 02-14 00:00: 00 08-29 23:59 :00 No [id number] ANXIETY 2 tablet DAILY 2 tablet DAILY (route: oral) Med Classific ation: Central Nervous System Agents aspirin 325 mg tablet,jenny yed release 02-14 00:00: 00 08-29 23:59 :00 No [id number] HEART 1 tablet DAILY 1 tablet DAILY (route: oral) Med Classific ation: Analgesic , Anti-infl ammatory or Antipyret ic atorvastati n 40 mg tablet 02-14 00:00: 00 08-29 23:59 :00 No [id number] HYPERLIPIDE PINKY 1 tablet DAILY 1 tablet DAILY (route: oral) Med Classific ation: Cardiovas cular Therapy Agents carvedilol 12.5 mg tablet 02-14 00:00: 00 08-29 23:59 :00 No [id number] HYPERTENSIO N 1 tablet 2 TIMES DAILY 1 tablet 2 TIMES DAILY (route: oral) Med Classific ation: Cardiovas cular Therapy Agents clopidogrel 75 mg tablet 02-14 00:00: 00 08-29 23:59 :00 No [id number] HEART 1 tablet DAILY 1 tablet DAILY (route: oral) Med Classific ation: Hematolog ical Agents dorzolamide -timolol (PF) 2 %-0.5 % eye drops in a dropperette 02-14 00:00: 00 08-29 23:59 :00 No [id number] GLAUCOMA 1 dropper ette 2 TIMES DAILY 1 dropperett e 2 TIMES DAILY (route: ophthalmic (eye)) Med Classific ation: Ophthalmi c Agents doxycycline hyclate 100 mg capsule 02-14 00:00: 00 08-29 23:59 :00 No [id number] INFECTION 1 capsule 2 TIMES DAILY 1 capsule 2 TIMES DAILY (route: oral) Med Classific ation: Anti-Infe ctive Agents enoxaparin 40 mg/0.4 mL subcutaneou s syringe 02-14 00:00: 00 08-29 23:59 :00 No [id number] BLOOD THINNER 40 mg DAILY 40 mg DAILY (route: subcutaneo us) Med Classific ation: Hematolog ical Agents ketorolac 10 mg tablet 02-14 00:00: 00 08-29 23:59 :00 No [id number] PAIN 1 tablet EVERY 6 HOURS 1 tablet EVERY 6 HOURS (route: oral) Med Classific ation: Analgesic , Anti-infl ammatory or Antipyret ic latanoprost 0.005 % eye drops 02-14 00:00: 08-29 23:59 :00 No [id number] GLAUCOMA 1 drops DAILY 1 drops DAILY (route: ophthalmic (eye)) Med Classific ation: Ophthalmi c Agents ondansetron 4 mg disintegrat ing tablet 02-14 00:00: 00 08-29 23:59 :00 No [id number] NAUSEA 1 tablet EVERY 4 HOURS 1 tablet EVERY 4 HOURS (route: oral) Med Classific ation: Gastroint estinal Therapy Agents oxycodone 10 mg tablet 02-14 00:00: 00 08-29 23:59 :00 No [id number] PAIN 1 tablet EVERY 4 HOURS 1 tablet EVERY 4 HOURS (route: oral) Med Classific ation: Analgesic , Anti-infl ammatory or Antipyret ic OxyContin 10 mg tablet,sarkis h resistant,e xtended release 02-14 00:00: 00 08-29 23:59 :00 No [id number] PAIN 1 tablet 2 TIMES DAILY 1 tablet 2 TIMES DAILY (route: oral) Med Classific ation: Analgesic , Anti-infl ammatory or Antipyret ic polyethylen e glycol 3350 17 gram/dose oral powder 02-14 00:00: 00 08-29 23:59 :00 No [id number] CONSTIPATIO N 17 gram DAILY 17 gram DAILY (route: oral) Med Classific ation: Gastroint estinal Therapy Agents potassium chloride ER 20 mEq tablet,exte nded release(par t/cryst) 02-14 00:00: 00 08-29 23:59 :00 No [id number] SUPPLEMENTS 1 tablet DAILY 1 tablet DAILY (route: oral) Med Classific ation: Electroly te Balance-N utritiona l Products sennosides 8.6 mg tablet 02-14 00:00: 00 08-29 23:59 :00 No [id number] CONSTIPATIO N 2 tablet DAILY 2 tablet DAILY (route: oral) Med Classific ation: Gastroint estinal Therapy Agents acetaminoph en 500 mg tablet 2024-10 1-19 00:00: 00 Yes [id number] PHANTOM LIMB PAIN 1 tablet EVERY 6 HOURS 1 tablet EVERY 6 HOURS (route: oral) Med Classific ation: Analgesic , Anti-infl ammatory or Antipyret ic Aspirin Childrens 81 mg chewable tablet 2024-10 00:00: 00 Yes [id number] ATRIAL FIBRILLATIO N 1 tablet DAILY 1 tablet DAILY (route: oral) Med Classific ation: Hematolog ical Agents atorvastati n 40 mg tablet 2024-10 00:00: 00 Yes [id number] CHOLESTEROL 1 tablet EVERY PM 1 tablet EVERY PM (route: oral) Med Classific ation: Cardiovas cular Therapy Agents cyanocobala min (vit B-12) 1,000 mcg tablet 2024-10 00:00: 00 Yes [id number] ANEMIA 1 tablet DAILY 1 tablet DAILY (route: oral) Med Classific ation: Electroly te Balance-N utritiona l Products furosemide 40 mg tablet 2024-10 00:00: 00 Yes [id number] PULMONARY EDEMA 1 tablet DAILY 1 tablet DAILY (route: oral) Med Classific ation: Cardiovas cular Therapy Agents gabapentin 400 mg capsule 2024-10 00:00: 00 Yes [id number] POLYNEUROPA THY 1 capsule 3 TIMES DAILY 1 capsule 3 TIMES DAILY (route: oral) Med Classific ation: Central Nervous System Agents losartan 25 mg tablet 2024-10 00:00: 00 Yes [id number] BLOOD PRESSURE 1 tablet DAILY 1 tablet DAILY (route: oral) Med Classific ation: Cardiovas cular Therapy Agents metoprolol tartrate 25 mg tablet 2024-10 00:00: 00 Yes [id number] CHOLESTEROL 1 tablet 2 TIMES DAILY 1 tablet 2 TIMES DAILY (route: oral) Med Classific ation: Cardiovas cular Therapy Agents nortriptyli ne 10 mg capsule 2024-10 00:00: 00 Yes [id number] ANTIDEPRESS ANT 1 capsule EVERY PM 1 capsule EVERY PM (route: oral) Med Classific ation: Central Nervous System Agents oxycodone 5 mg tablet 2024-10 00:00: 00 Yes [id number] PAIN 1 tablet 3 TIMES DAILY 1 tablet 3 TIMES DAILY (route: oral) Med Classific ation: Analgesic , Anti-infl ammatory or Antipyret ic pantoprazol e 40 mg tablet,jenny yed release 2024-10 00:00: 00 Yes [id number] ACID REFLUX 1 tablet 2 TIMES DAILY 1 tablet 2 TIMES DAILY (route: oral) Med Classific ation: Gastroint estinal Therapy Agents polyethylen e glycol 3350 17 gram oral powder packet 2024-10 00:00: 00 Yes [id number] CONSTIPATIO N 1 packet DAILY 1 packet DAILY (route: oral) Med Classific ation: Gastroint estinal Therapy Agents ranolazine ER 1,000 mg tablet,exte nded release,12 hr 2024-10 00:00: 00 Yes [id number] ATRIAL FIRBRILLATI ON 1 tablet DAILY 1 [...] RIBERA WASPEE, RN TO OBSERVE AND ASSESS, SHEET FED PRINTER/MARKETING OFFICER TO OBSERVE FOR RISK FOR FALLS AND INSTRUCT IN FALL PREVENTION, HOME SAFETY, MEDICATION MANAGEMENT, INFECTION PREVENTION, AND NUTRITION MANAGEMENT. RN/SHEET FED PRINTER/MARKETING OFFICER NURSE MAY PERFORM O2 SATURATION LEVEL ON ADMISSION AND PRN FOR RN TO ASSESS/SHEET FED PRINTER TO OBSERVE PATIENT, WITH NOTIFICATION TO THE PHYSICIAN IF SATURATION IS 90% IN THE ABSENCE OF MORE SPECIFIC PARAMETERS FROM THE PHYSICIAN. AGENCY MAY PERFORM A RESUMPTION OF CARE VISIT FOLLOWING ANY HOSPITAL ADMISSION. RN/SHEET FED PRINTER/MARKETING OFFICER TO MONITOR CO-MORBID CONDITIONS LISTED ON THE PLAN OF CARE AND ANY NEW CONDITIONS THAT PRESENT THEMSELVES DURING THIS EPISODE TO IDENTIFY CHANGES AND INTERVENE TO MINIMIZE COMPLICATIONS. [code = RN TO OBSERVE, ASSESS, EVALUATE, AND DEVELOP AN INDIVIDUALIZED PLAN OF CARE. AGENCY MAY ACCEPT ORDERS FROM CONSULTING PHYSICIANS NAY RIBERA WASPEE, RN TO OBSERVE AND ASSESS, SHEET FED PRINTER/MARKETING OFFICER TO OBSERVE FOR RISK FOR FALLS AND INSTRUCT IN FALL PREVENTION, HOME SAFETY, MEDICATION MANAGEMENT, INFECTION PREVENTION, AND NUTRITION MANAGEMENT. RN/SHEET FED PRINTER/MARKETING OFFICER NURSE MAY PERFORM O2 SATURATION LEVEL ON ADMISSION AND PRN FOR RN TO ASSESS/SHEET FED PRINTER TO OBSERVE PATIENT, WITH NOTIFICATION TO THE PHYSICIAN IF SATURATION IS 90% IN THE ABSENCE OF MORE SPECIFIC PARAMETERS FROM THE PHYSICIAN. AGENCY MAY PERFORM A RESUMPTION OF CARE VISIT FOLLOWING ANY HOSPITAL ADMISSION. RN/SHEET FED PRINTER/MARKETING OFFICER TO MONITOR CO-MORBID CONDITIONS LISTED ON THE PLAN OF CARE AND ANY NEW CONDITIONS THAT PRESENT THEMSELVES DURING THIS EPISODE TO IDENTIFY CHANGES AND INTERVENE TO MINIMIZE COMPLICATIONS.] Future Scheduled Test MEDICATION MANAGEMENT; RN/SHEET FED PRINTER/MARKETING OFFICER TO REVIEW MEDICATIONS FOR INTERACTIONS, EFFECTIVENESS OF DRUG THERAPY, AND SIGNS/SYMPTOMS OF ADVERSE REACTIONS. MAY INSTRUCT AND REINFORCE MEDICATION TEACHING RELATED TO THE USE OF MEDICATIONS, DOSAGE, FREQUENCY, PURPOSE, SIDE EFFECTS, AND TO REPORT COMPLICATIONS. [code = MEDICATION MANAGEMENT; RN/SHEET FED PRINTER/MARKETING OFFICER TO REVIEW MEDICATIONS FOR INTERACTIONS, EFFECTIVENESS OF DRUG THERAPY, AND SIGNS/SYMPTOMS OF ADVERSE REACTIONS. MAY INSTRUCT AND REINFORCE MEDICATION TEACHING RELATED TO THE USE OF MEDICATIONS, DOSAGE, FREQUENCY, PURPOSE, SIDE EFFECTS, AND TO REPORT COMPLICATIONS.] Future Scheduled Test RN/SHEET FED PRINTER/MARKETING OFFICER TO PERFORM/TEACH PATIENT/CAREGIVER WOUND CARE TO LEFT ARM SKIN TEAR: IRRIGATE/CLEANSE WITH WOUND WASH APPLY EXEROFORM MAY APPLY SKIN BARRIER TO MARILYNN WOUND PRN TO PREVENT MACERATION PLACE 4X4 BORDER GAUZE CHANGE DRESSING EVERY OTHER DAY BY SN AND CAREGIVER TO PERFORM WOUND CARE IN ABSENCE OF SN. PRN FOR SOILING AND DISLODGEMENT [code = RN/SHEET FED PRINTER/MARKETING OFFICER TO PERFORM/TEACH PATIENT/CAREGIVER WOUND CARE TO LEFT [...] MANAG EMENT; RN TO ASSESS AND TEACH, MARKETING OFFICER/SHEET FED PRINTER TO OBSERVE AND TEACH AND PROVIDE EDUCATION ON PAIN MANAGEMENT TECHNIQUES. [code = PAIN MANAGEMENT; RN TO ASSESS AND TEACH, MARKETING OFFICER/SHEET FED PRINTER TO OBSERVE AND TEACH AND PROVIDE EDUCATION [...] Scheduled Test PRN VISITS ; NUMBER OF RN/SHEET FED PRINTER/MARKETING OFFICER VISITS: 2 RN/SHEET FED PRINTER/MARKETING OFFICER TO PERFORM: WOUND EVALUATION FOR THE FOLLOWING REASONS: REDNESS, WARMTH, SWELLING, PURULENT DRAINAGE [code = PRN VISITS; NUMBER OF RN/SHEET FED PRINTER/MARKETING OFFICER VISITS: 2 RN/SHEET FED PRINTER/MARKETING OFFICER TO PERFORM: WOUND EVALUATION FOR THE FOLLOWING REASONS: REDNESS, WARMTH, SWELLING, PURULENT DRAINAGE] Future Scheduled Test FALL REDUC TION MANAGEMENT; RN TO ASSESS AND OBSERVE, SHEET FED PRINTER/MARKETING OFFICER TO OBSERVE FALL RISK FACTORS AND EDUCATE PATIENT/CAREGIVER ON STRATEGIES TO MINIMIZE THE RISK OF FALLING. [code = FALL REDUCTION MANAGEMENT; RN TO ASSESS AND OBSERVE, SHEET FED PRINTER/MARKETING OFFICER TO OBSERVE FALL RISK FACTORS AND EDUCATE PATIENT/CAREGIVER ON STRATEGIES TO MINIMIZE THE RISK OF FALLING.] Future Scheduled Test AGENCY MAY PERFORM A RESUMPTION OF CARE VISIT FOLLOWING ANY HOSPITAL ADMISSION. OT TO EVALUATE, OBSERVE / ASSESS, AND MONITOR, CHANNEL EXECUTIVE TO OBSERVE AND MONITOR, PROVIDE SKILLED THERAPEUTIC INTERVENTION, ACTIVITY, EDUCATION, AND TRAINING TO ADDRESS ADLS/IADLS, ADAPTIVE EQUIPMENT, STRENGTHENING, BALANCE, AND FUNCTIONAL TRANSFERS TO MAXIMIZE SAFETY AND FUNCTIONAL INDEPENDENCE IN HOME BATHING/SHOWERING (OT/JACKIE) DRESSING (OT/CHANNEL EXECUTIVE) ACTIVITIES OF DAILY LIVING (OT/JACKIE) MEAL PREPARATION AND CLEANUP (OT/JACKIE) LIGHT HOUSEKEEPING (OT/CHANNEL EXECUTIVE) BED TRANSFERS (OT/JACKIE) TOILET TRANSFER (OT/CHANNEL EXECUTIVE) BATH/SHOWER TRANSFER (OT/CHANNEL EXECUTIVE) THERAPEUTIC EXERCISE (OT/JACKIE) OT TO ASSESS / CHANNEL EXECUTIVE TO MONITOR FOR HEART FAILURE EXACERBATION AND RECORD PATIENT REPORTED WEIGHT, AND NOTIFY THE PHYSICIAN AND/OR THE RN CLINICAL LIGHT FIXTURE SERVICER FOR PHYSICIAN NOTIFICATION OF HF EXACERBATION (2LB WEIGHT GAIN IN 1 DAY, 5LBS IN A WEEK OR 5 LBS OVER BASELINE; INCREASED SOB, EDEMA, NEEDING MORE PILLOWS AT NIGHT, CRACKLES IN BASIS OF THE LUNGS OR PMI SHIFT). OT TO ASSESS / CHANNEL EXECUTIVE TO MONITOR CARDIO/RESPIRATORY SYSTEM; AND NOTIFY THE PHYSICIAN AND/OR THE RN CLINICAL LIGHT FIXTURE SERVICER FOR PHYSICIAN NOTIFICATION FOR EARLY SIGNS AND [...] SAFETY AND FUNCTIONAL INDEPENDENCE IN HOME BATHING/SHOWERING (OT/CHANNEL EXECUTIVE) DRESSING (OT/JACKIE) ACTIVITIES OF DAILY LIVING (OT/JACKIE) MEAL PREPARATION AND CLEANUP (OT/JACKIE) LIGHT HOUSEKEEPING (OT/JACKIE) BED TRANSFERS (OT/CHANNEL EXECUTIVE) TOILET TRANSFER (OT/JACKIE) BATH/SHOWER TRANSFER (OT/CHANNEL EXECUTIVE) THERAPEUTIC EXERCISE (OT/JACKIE) OT TO ASSESS / CHANNEL EXECUTIVE TO MONITOR FOR HEART FAILURE EXACERBATION AND RECORD PATIENT REPORTED WEIGHT, AND NOTIFY THE PHYSICIAN AND/OR THE RN CLINICAL LIGHT FIXTURE SERVICER FOR PHYSICIAN NOTIFICATION OF HF EXACERBATION (2LB WEIGHT GAIN IN 1 DAY, 5LBS IN A WEEK OR 5 LBS OVER BASELINE; INCREASED SOB, EDEMA, NEEDING MORE PILLOWS AT NIGHT, CRACKLES IN BASIS OF THE LUNGS OR PMI SHIFT). OT TO ASSESS / JACKIE TO MONITOR CARDIO/RESPIRATORY SYSTEM; AND NOTIFY THE PHYSICIAN AND/OR THE RN CLINICAL LIGHT FIXTURE SERVICER FOR PHYSICIAN NOTIFICATION FOR EARLY SIGNS AND [...] End Date/Time Encounter Type Admission Type Attending [facility] Care Department Encounter ID Discharge Date Discharge Status Discharge Condition Discharge Reason Percent Goals Met 2025-09-04 00:00:00 2025-11-02 00:00:00 Outpatient TOPHER KING [facility] [id number] 13.16
--- OUTSIDE RECORDS SUMMARY | 2025-11-01 19:00 | XMS_ITS | Clinical Summary ---
Author Organization Unknown Care Team Providers Care Director Of Cloud Services Name Role Phone VAN [employer] SENIOR MANAGER INSURANCE, NAY Unavailable Unavailable LACI RN, TOPHER Unavailable Unavailable OLIVIER GARAGE ATTENDANT, ALEA Unavailable Unavailable KALPANA OT, WILLIAM Unavailable Unavailable JANIS PT, KING Unavailable Unavailable JUDITH SACK MAKER, JOE Unavailable Unavailabl e LAWRENCE COBBLER APPRENTICE/PLEITEZ, MARIEA Unavailable Unavail able Payers Payer Name Policy Type Policy Number Effective Date Expira tion Date MEDICARE.LJ[place]TE.[facility] [id number] Problems Condition Name Condition Details Condition Category [...] 2024-10 00:00: 00 ATHSCL HEART DISEASE OF [place] CORONARY ARTERY W/O ANG PCTRS Active 2024-10 [...] 02-14 00:00: 00 08-29 23:59 :00 No [id number] PAIN 2 capsule EVERY 6 HOURS 2 capsule EVERY 6 HOURS (route: oral) Med Classific ation: Analgesic , Anti-infl ammatory or Antipyret ic alprazolam 0.25 mg disintegrat ing tablet 02-14 00:00: 00 08-29 23:59 :00 No [id number] ANXIETY 2 tablet DAILY 2 tablet DAILY (route: oral) Med Classific ation: Central Nervous System Agents aspirin 325 mg tablet,jenny yed release 02-14 00:00: 00 08-29 23:59 :00 No [id number] HEART 1 tablet DAILY 1 tablet DAILY (route: oral) Med Classific ation: Analgesic , Anti-infl ammatory or Antipyret ic atorvastati n 40 mg tablet 02-14 00:00: 00 08-29 23:59 :00 No [id number] HYPERLIPIDE PINKY 1 tablet DAILY 1 tablet DAILY (route: oral) Med Classific ation: Cardiovas cular Therapy Agents carvedilol 12.5 mg tablet 02-14 00:00: 00 08-29 23:59 :00 No [id number] HYPERTENSIO N 1 tablet 2 TIMES DAILY 1 tablet 2 TIMES DAILY (route: oral) Med Classific ation: Cardiovas cular Therapy Agents clopidogrel 75 mg tablet 02-14 00:00: 00 08-29 23:59 :00 No [id number] HEART 1 tablet DAILY 1 tablet DAILY (route: oral) Med Classific ation: Hematolog ical Agents dorzolamide -timolol (PF) 2 %-0.5 % eye drops in a dropperette 02-14 00:00: 00 08-29 23:59 :00 No [id number] GLAUCOMA 1 dropper ette 2 TIMES DAILY 1 dropperett e 2 TIMES DAILY (route: ophthalmic (eye)) Med Classific ation: Ophthalmi c Agents doxycycline hyclate 100 mg capsule 02-14 00:00: 00 08-29 23:59 :00 No [id number] INFECTION 1 capsule 2 TIMES DAILY 1 capsule 2 TIMES DAILY (route: oral) Med Classific ation: Anti-Infe ctive Agents enoxaparin 40 mg/0.4 mL subcutaneou s syringe 02-14 00:00: 00 08-29 23:59 :00 No [id number] BLOOD THINNER 40 mg DAILY 40 mg DAILY (route: subcutaneo us) Med Classific ation: Hematolog ical Agents ketorolac 10 mg tablet 02-14 00:00: 00 08-29 23:59 :00 No [id number] PAIN 1 tablet EVERY 6 HOURS 1 tablet EVERY 6 HOURS (route: oral) Med Classific ation: Analgesic , Anti-infl ammatory or Antipyret ic latanoprost 0.005 % eye drops 02-14 00:00: 08-29 23:59 :00 No [id number] GLAUCOMA 1 drops DAILY 1 drops DAILY (route: ophthalmic (eye)) Med Classific ation: Ophthalmi c Agents ondansetron 4 mg disintegrat ing tablet 02-14 00:00: 00 08-29 23:59 :00 No [id number] NAUSEA 1 tablet EVERY 4 HOURS 1 tablet EVERY 4 HOURS (route: oral) Med Classific ation: Gastroint estinal Therapy Agents oxycodone 10 mg tablet 02-14 00:00: 00 08-29 23:59 :00 No [id number] PAIN 1 tablet EVERY 4 HOURS 1 tablet EVERY 4 HOURS (route: oral) Med Classific ation: Analgesic , Anti-infl ammatory or Antipyret ic OxyContin 10 mg tablet,sarkis h resistant,e xtended release 02-14 00:00: 00 08-29 23:59 :00 No [id number] PAIN 1 tablet 2 TIMES DAILY 1 tablet 2 TIMES DAILY (route: oral) Med Classific ation: Analgesic , Anti-infl ammatory or Antipyret ic polyethylen e glycol 3350 17 gram/dose oral powder 02-14 00:00: 00 08-29 23:59 :00 No [id number] CONSTIPATIO N 17 gram DAILY 17 gram DAILY (route: oral) Med Classific ation: Gastroint estinal Therapy Agents potassium chloride ER 20 mEq tablet,exte nded release(par t/cryst) 02-14 00:00: 00 08-29 23:59 :00 No [id number] SUPPLEMENTS 1 tablet DAILY 1 tablet DAILY (route: oral) Med Classific ation: Electroly te Balance-N utritiona l Products sennosides 8.6 mg tablet 02-14 00:00: 00 08-29 23:59 :00 No [id number] CONSTIPATIO N 2 tablet DAILY 2 tablet DAILY (route: oral) Med Classific ation: Gastroint estinal Therapy Agents acetaminoph en 500 mg tablet 2024-10 1-19 00:00: 00 Yes [id number] PHANTOM LIMB PAIN 1 tablet EVERY 6 HOURS 1 tablet EVERY 6 HOURS (route: oral) Med Classific ation: Analgesic , Anti-infl ammatory or Antipyret ic Aspirin Childrens 81 mg chewable tablet 2024-10 00:00: 00 Yes [id number] ATRIAL FIBRILLATIO N 1 tablet DAILY 1 tablet DAILY (route: oral) Med Classific ation: Hematolog ical Agents atorvastati n 40 mg tablet 2024-10 00:00: 00 Yes [id number] CHOLESTEROL 1 tablet EVERY PM 1 tablet EVERY PM (route: oral) Med Classific ation: Cardiovas cular Therapy Agents cyanocobala min (vit B-12) 1,000 mcg tablet 2024-10 00:00: 00 Yes [id number] ANEMIA 1 tablet DAILY 1 tablet DAILY (route: oral) Med Classific ation: Electroly te Balance-N utritiona l Products furosemide 40 mg tablet 2024-10 00:00: 00 Yes [id number] PULMONARY EDEMA 1 tablet DAILY 1 tablet DAILY (route: oral) Med Classific ation: Cardiovas cular Therapy Agents gabapentin 400 mg capsule 2024-10 00:00: 00 Yes [id number] POLYNEUROPA THY 1 capsule 3 TIMES DAILY 1 capsule 3 TIMES DAILY (route: oral) Med Classific ation: Central Nervous System Agents losartan 25 mg tablet 2024-10 00:00: 00 Yes [id number] BLOOD PRESSURE 1 tablet DAILY 1 tablet DAILY (route: oral) Med Classific ation: Cardiovas cular Therapy Agents metoprolol tartrate 25 mg tablet 2024-10 00:00: 00 Yes [id number] CHOLESTEROL 1 tablet 2 TIMES DAILY 1 tablet 2 TIMES DAILY (route: oral) Med Classific ation: Cardiovas cular Therapy Agents nortriptyli ne 10 mg capsule 2024-10 00:00: 00 Yes [id number] ANTIDEPRESS ANT 1 capsule EVERY PM 1 capsule EVERY PM (route: oral) Med Classific ation: Central Nervous System Agents oxycodone 5 mg tablet 2024-10 00:00: 00 Yes [id number] PAIN 1 tablet 3 TIMES DAILY 1 tablet 3 TIMES DAILY (route: oral) Med Classific ation: Analgesic , Anti-infl ammatory or Antipyret ic pantoprazol e 40 mg tablet,jenny yed release 2024-10 00:00: 00 Yes [id number] ACID REFLUX 1 tablet 2 TIMES DAILY 1 tablet 2 TIMES DAILY (route: oral) Med Classific ation: Gastroint estinal Therapy Agents polyethylen e glycol 3350 17 gram oral powder packet 2024-10 00:00: 00 Yes [id number] CONSTIPATIO N 1 packet DAILY 1 packet DAILY (route: oral) Med Classific ation: Gastroint estinal Therapy Agents ranolazine ER 1,000 mg tablet,exte nded release,12 hr 2024-10 00:00: 00 Yes [id number] ATRIAL FIRBRILLATI ON 1 tablet DAILY 1 [...] RIBERA WASPEE, RN TO OBSERVE AND ASSESS, GARAGE ATTENDANT/SOLUTION MIXER TO OBSERVE FOR RISK FOR FALLS AND INSTRUCT IN FALL PREVENTION, HOME SAFETY, MEDICATION MANAGEMENT, INFECTION PREVENTION, AND NUTRITION MANAGEMENT. RN/GARAGE ATTENDANT/SOLUTION MIXER NURSE MAY PERFORM O2 SATURATION LEVEL ON ADMISSION AND PRN FOR RN TO ASSESS/GARAGE ATTENDANT TO OBSERVE PATIENT, WITH NOTIFICATION TO THE PHYSICIAN IF SATURATION IS 90% IN THE ABSENCE OF MORE SPECIFIC PARAMETERS FROM THE PHYSICIAN. AGENCY MAY PERFORM A RESUMPTION OF CARE VISIT FOLLOWING ANY HOSPITAL ADMISSION. RN/GARAGE ATTENDANT/SOLUTION MIXER TO MONITOR CO-MORBID CONDITIONS LISTED ON THE PLAN OF CARE AND ANY NEW CONDITIONS THAT PRESENT THEMSELVES DURING THIS EPISODE TO IDENTIFY CHANGES AND INTERVENE TO MINIMIZE COMPLICATIONS. [code = RN TO OBSERVE, ASSESS, EVALUATE, AND DEVELOP AN INDIVIDUALIZED PLAN OF CARE. AGENCY MAY ACCEPT ORDERS FROM CONSULTING PHYSICIANS NAY RIBERA WASPEE, RN TO OBSERVE AND ASSESS, GARAGE ATTENDANT/SOLUTION MIXER TO OBSERVE FOR RISK FOR FALLS AND INSTRUCT IN FALL PREVENTION, HOME SAFETY, MEDICATION MANAGEMENT, INFECTION PREVENTION, AND NUTRITION MANAGEMENT. RN/GARAGE ATTENDANT/SOLUTION MIXER NURSE MAY PERFORM O2 SATURATION LEVEL ON ADMISSION AND PRN FOR RN TO ASSESS/GARAGE ATTENDANT TO OBSERVE PATIENT, WITH NOTIFICATION TO THE PHYSICIAN IF SATURATION IS 90% IN THE ABSENCE OF MORE SPECIFIC PARAMETERS FROM THE PHYSICIAN. AGENCY MAY PERFORM A RESUMPTION OF CARE VISIT FOLLOWING ANY HOSPITAL ADMISSION. RN/GARAGE ATTENDANT/SOLUTION MIXER TO MONITOR CO-MORBID CONDITIONS LISTED ON THE PLAN OF CARE AND ANY NEW CONDITIONS THAT PRESENT THEMSELVES DURING THIS EPISODE TO IDENTIFY CHANGES AND INTERVENE TO MINIMIZE COMPLICATIONS.] Future Scheduled Test MEDICATION MANAGEMENT; RN/GARAGE ATTENDANT/SOLUTION MIXER TO REVIEW MEDICATIONS FOR INTERACTIONS, EFFECTIVENESS OF DRUG THERAPY, AND SIGNS/SYMPTOMS OF ADVERSE REACTIONS. MAY INSTRUCT AND REINFORCE MEDICATION TEACHING RELATED TO THE USE OF MEDICATIONS, DOSAGE, FREQUENCY, PURPOSE, SIDE EFFECTS, AND TO REPORT COMPLICATIONS. [code = MEDICATION MANAGEMENT; RN/GARAGE ATTENDANT/SOLUTION MIXER TO REVIEW MEDICATIONS FOR INTERACTIONS, EFFECTIVENESS OF DRUG THERAPY, AND SIGNS/SYMPTOMS OF ADVERSE REACTIONS. MAY INSTRUCT AND REINFORCE MEDICATION TEACHING RELATED TO THE USE OF MEDICATIONS, DOSAGE, FREQUENCY, PURPOSE, SIDE EFFECTS, AND TO REPORT COMPLICATIONS.] Future Scheduled Test RN/GARAGE ATTENDANT/SOLUTION MIXER TO PERFORM/TEACH PATIENT/CAREGIVER WOUND CARE TO LEFT ARM SKIN TEAR: IRRIGATE/CLEANSE WITH WOUND WASH APPLY EXEROFORM MAY APPLY SKIN BARRIER TO MARILYNN WOUND PRN TO PREVENT MACERATION PLACE 4X4 BORDER GAUZE CHANGE DRESSING EVERY OTHER DAY BY SN AND CAREGIVER TO PERFORM WOUND CARE IN ABSENCE OF SN. PRN FOR SOILING AND DISLODGEMENT [code = RN/GARAGE ATTENDANT/SOLUTION MIXER TO PERFORM/TEACH PATIENT/CAREGIVER WOUND CARE TO LEFT [...] MANAG EMENT; RN TO ASSESS AND TEACH, SOLUTION MIXER/GARAGE ATTENDANT TO OBSERVE AND TEACH AND PROVIDE EDUCATION ON PAIN MANAGEMENT TECHNIQUES. [code = PAIN MANAGEMENT; RN TO ASSESS AND TEACH, SOLUTION MIXER/GARAGE ATTENDANT TO OBSERVE AND TEACH AND PROVIDE EDUCATION [...] Scheduled Test PRN VISITS ; NUMBER OF RN/GARAGE ATTENDANT/SOLUTION MIXER VISITS: 2 RN/GARAGE ATTENDANT/SOLUTION MIXER TO PERFORM: WOUND EVALUATION FOR THE FOLLOWING REASONS: REDNESS, WARMTH, SWELLING, PURULENT DRAINAGE [code = PRN VISITS; NUMBER OF RN/GARAGE ATTENDANT/SOLUTION MIXER VISITS: 2 RN/GARAGE ATTENDANT/SOLUTION MIXER TO PERFORM: WOUND EVALUATION FOR THE FOLLOWING REASONS: REDNESS, WARMTH, SWELLING, PURULENT DRAINAGE] Future Scheduled Test FALL REDUC TION MANAGEMENT; RN TO ASSESS AND OBSERVE, GARAGE ATTENDANT/SOLUTION MIXER TO OBSERVE FALL RISK FACTORS AND EDUCATE PATIENT/CAREGIVER ON STRATEGIES TO MINIMIZE THE RISK OF FALLING. [code = FALL REDUCTION MANAGEMENT; RN TO ASSESS AND OBSERVE, GARAGE ATTENDANT/SOLUTION MIXER TO OBSERVE FALL RISK FACTORS AND EDUCATE PATIENT/CAREGIVER ON STRATEGIES TO MINIMIZE THE RISK OF FALLING.] Future Scheduled Test AGENCY MAY PERFORM A RESUMPTION OF CARE VISIT FOLLOWING ANY HOSPITAL ADMISSION. OT TO EVALUATE, OBSERVE / ASSESS, AND MONITOR, COBBLER APPRENTICE TO OBSERVE AND MONITOR, PROVIDE SKILLED THERAPEUTIC INTERVENTION, ACTIVITY, EDUCATION, AND TRAINING TO ADDRESS ADLS/IADLS, ADAPTIVE EQUIPMENT, STRENGTHENING, BALANCE, AND FUNCTIONAL TRANSFERS TO MAXIMIZE SAFETY AND FUNCTIONAL INDEPENDENCE IN HOME BATHING/SHOWERING (OT/JACKIE) DRESSING (OT/COBBLER APPRENTICE) ACTIVITIES OF DAILY LIVING (OT/JACKIE) MEAL PREPARATION AND CLEANUP (OT/JACKIE) LIGHT HOUSEKEEPING (OT/COBBLER APPRENTICE) BED TRANSFERS (OT/JACKIE) TOILET TRANSFER (OT/COBBLER APPRENTICE) BATH/SHOWER TRANSFER (OT/COBBLER APPRENTICE) THERAPEUTIC EXERCISE (OT/JACKIE) OT TO ASSESS / COBBLER APPRENTICE TO MONITOR FOR HEART FAILURE EXACERBATION AND RECORD PATIENT REPORTED WEIGHT, AND NOTIFY THE PHYSICIAN AND/OR THE RN CLINICAL CREDIT PROFESSIONAL FOR PHYSICIAN NOTIFICATION OF HF EXACERBATION (2LB WEIGHT GAIN IN 1 DAY, 5LBS IN A WEEK OR 5 LBS OVER BASELINE; INCREASED SOB, EDEMA, NEEDING MORE PILLOWS AT NIGHT, CRACKLES IN BASIS OF THE LUNGS OR PMI SHIFT). OT TO ASSESS / COBBLER APPRENTICE TO MONITOR CARDIO/RESPIRATORY SYSTEM; AND NOTIFY THE PHYSICIAN AND/OR THE RN CLINICAL CREDIT PROFESSIONAL FOR PHYSICIAN NOTIFICATION FOR EARLY SIGNS AND [...] SAFETY AND FUNCTIONAL INDEPENDENCE IN HOME BATHING/SHOWERING (OT/COBBLER APPRENTICE) DRESSING (OT/JACKIE) ACTIVITIES OF DAILY LIVING (OT/JACKIE) MEAL PREPARATION AND CLEANUP (OT/JACKIE) LIGHT HOUSEKEEPING (OT/JACKIE) BED TRANSFERS (OT/COBBLER APPRENTICE) TOILET TRANSFER (OT/JACKIE) BATH/SHOWER TRANSFER (OT/COBBLER APPRENTICE) THERAPEUTIC EXERCISE (OT/JACKIE) OT TO ASSESS / COBBLER APPRENTICE TO MONITOR FOR HEART FAILURE EXACERBATION AND RECORD PATIENT REPORTED WEIGHT, AND NOTIFY THE PHYSICIAN AND/OR THE RN CLINICAL CREDIT PROFESSIONAL FOR PHYSICIAN NOTIFICATION OF HF EXACERBATION (2LB WEIGHT GAIN IN 1 DAY, 5LBS IN A WEEK OR 5 LBS OVER BASELINE; INCREASED SOB, EDEMA, NEEDING MORE PILLOWS AT NIGHT, CRACKLES IN BASIS OF THE LUNGS OR PMI SHIFT). OT TO ASSESS / JACKIE TO MONITOR CARDIO/RESPIRATORY SYSTEM; AND NOTIFY THE PHYSICIAN AND/OR THE RN CLINICAL CREDIT PROFESSIONAL FOR PHYSICIAN NOTIFICATION FOR EARLY SIGNS AND [...] End Date/Time Encounter Type Admission Type Attending [facility] Care Department Encounter ID Discharge Date Discharge Status Discharge Condition Discharge Reason Percent Goals Met 2025-09-04 00:00:00 2025-11-02 00:00:00 Outpatient TOPHER KING [facility] [id number]
== END 2025-10-15 13:41 | disposition home health service (06) | DRG 92 ==
LOC: ER 10-13 00:40 → ICU 10-13 13:25 → 2ND 10-13 15:59
PROVIDERS: Student in an Organized Health Care Education/Training Program; Admitting Provider Student in an Organized Health Care Education/Training Program; Emergency Provider Student in an Organized Health Care Education/Training Program; PCP Family Medicine; Visit Provider Student in an Organized Health Care Education/Training Program
DX: G92.9 Unspecified toxic encephalopathy (principal); I13.0 Hypertensive heart and chronic kidney disease with heart failure and stage 1 through stage 4 chronic kidney disease, or unspecified chronic kidney disease; I50.22 Chronic systolic (congestive) heart failure; R56.9 Unspecified convulsions; Z66 Do not resuscitate; E11.51 Type 2 diabetes mellitus with diabetic peripheral angiopathy without gangrene; Z79.82 Long term (current) use of aspirin; Z88.1 Allergy status to other antibiotic agents; Z88.5 Allergy status to narcotic agent; Z95.1 Presence of aortocoronary bypass graft; I48.91 Unspecified atrial fibrillation; E78.5 Hyperlipidemia, unspecified; N18.2 Chronic kidney disease, stage 2 (mild); Z89.612 Acquired absence of left leg above knee; K52.9 Noninfective gastroenteritis and colitis, unspecified; F12.90 Cannabis use, unspecified, uncomplicated
CPT/HCPCS: 0223U; 36415; 70450; 70496; 70498; 71275; 74177; 80053; 80307; 80329; 81001; 82803; 83605; 83690; 83735; 83880; 84100; 84484; 85014; 85018; 85025; 85610; 85730; 86140; 86850; 93005; 97162; 99285; J1938; J1953; J2543; J7120; Q9967